=== PATIENT | female | born 1975 | race Caucasian/White ===

== ENCOUNTER 2022-10-21 15:50 | Inpatient (IN) | payer OTHER, SELFPAY ==
[2022-10-23] VITALS (9 sets, daily range): BP systolic 100–149; BP diastolic 56–94; PULSE 94–105; RESP 12–18; TEMP 36.7–37.6; O2SAT 93–99
--- NOTE | 2022-10-23 09:46 | CM.NOTE ---
Rounds made with Dr. Og, pt will go to OR today for I&D. SW and Case Management will follow for any discharge needs.
--- NOTE | 2022-10-23 10:13 | SWNOTE1 ---
Patient is current with [address] and would like to continue at discharge
[2022-10-23] MEDS: PREGABALIN 100 MG CAPSULE PO ×2 (10:24→21:20)
[2022-10-23] MEDS: BUSPIRONE HCL 15 MG TABLET 30 MG PO ×2 (10:25→21:19)
[2022-10-23] MEDS: LEVETIRACETAM 250 MG TABLET 750 MG PO ×2 (10:25→21:19)
[2022-10-23 10:57] LABS: Estimated Average Glucose 243 mg/dL; Glycohemoglobin A1C 10.1 % (4.5-6.2)
--- NOTE | 2022-10-23 11:34 | P.PN_ITS ---
Progress Note: Subjective Subjective Interval history: patient is a 47-year-old female history of poorly controlled diabetes on an insulin pump, chronic pain, migraines, diabetic retinopathy and neuropathy, anxiety, bipolar disorder. she presents the hospital today with increasing pain, redness and swelling for the last two days to the right foot, at the great toe. She denies any injury, lacerations or abrasions. She has a healing wound to the left great toe that has been improving and is managed by home wound care. She denies fevers, vomiting. Blood sugars have been controlled on her insulin pump. this morning notes that on her left heel. There was a blister that had burst that on the right great toe is having some pain. Denies any fevers or chills overnight. But does report that she has been in some pain today.UDS was negative, Ha1c pending. Plan to go to OR today for I&D. Exam Narrative: Exam Narrative: General: Patient is alert, and oriented to person, place and time with normal affect, poor hygiene Skin: healing wound on the left great toe, right great toe with some erythema of the skin extending into 1st metatarsal and callus formation on the bottom of the foot, open layer of skin on the left heel Head: atraumatic, acephalic Eyes: PERRLA, no nystagmus present, conjunctiva clear, no scleral icterus Mouth/Throat: no erythema, exudate, or tonsillar enlargement, no dentition Neck: no masses palpated, normal thyroid, no JVD or audible carotid bruits Heart: Normal rate and rhythm, no murmurs/rubs/gallops Lungs: no audible wheezes, crackles and normal breath sounds all lung marquez Abdomen: Normal audible bowel sounds, no distension, No palpable masses, no organomegaly, no rebound/guarding/ or rigidity Musculoskeletal: muscle atrophy noted, ROM is limited due to being in hospital bed, no swelling bilateral lower extremities Vascular: Normal carotid, radial, femoral, posterior tibial, and dorsalis pedis pulses Lymph: no supraclavicular, axillary, or anterior/posterior cervical adenopathy Neuro: CN II-X grossly intact, normal sensation upper and lower extremities Constitutional: Vital Signs, click to edit/add: Vital Signs - 24 hr 10/23/22 11:09 Pulse Oximetry 97 Oxygen Delivery Me thod Room Air Progress Note: A&P Assessment and Plan (1) Cutaneous abscess of right foot: (2) Cellulitis of foot, right: (3) Uncontrolled diabetes mellitus: Plan #1. Right foot cellulitis with abscess- will place on Zosyn and Daptomycin, Elevated blood cell count and some tachycardia which triggered sepsis protocol. Blood cultures obtained and broad-spectrum antibiotics and fluids given. normal lactate level. WBC normal today, CT scan ordered by podiatry showed ulcer with possible abscess, plan for I&D of the right foot with hardware removal. continue IV antibiotics #2 insulin-dependent type 2 diabetes-continue on insulin pump, check ha1c #3 hypertension continue home lisinopril uncertain reason why she is on losartan as well but we'll hold this for now. normal ECHO 07/2022 #4 seizure history-continue amitriptyline Keppra and Lyrica #5 diabetic neuropathy will continue on Lyrica #6 anxiety we'll continue her BuSpar, amitriptyline, Seroquel #7 hypothyroidism continue home levothyroxine patient is a full code patient is inpatient status and is expected to stay more than two days with new CT findings Fall Risk Details Current Medications: Current Medications Acetaminophen (Acetaminophen 325 Mg Tablet) 650 mg PO Q4H PRN PRN Reason: Fever Hydrocodone Bitart/Acetaminophen (Hydrocodone/Acetaminophen 5-325 Mg Tablet) 1 each PO Q4H PRN PRN Reason: P Amitriptyline HCl (Amitriptyline Hcl 25 Mg Tablet) 25 mg PO QHS [facility] Aspirin (Aspirin 81 Mg Tab.Chew) 81 mg PO QD [facility] Last Admin: 10/23/22 10:02 Dose: Not Given Atorvastatin Calcium (Atorvastatin Calcium 40 Mg Tablet) 40 mg PO QHS [facility] Buspirone HCl (Buspirone Hcl 15 Mg Tablet) 30 mg PO BID [facility] Last Admin: 10/23/22 10:25 Dose: 30 mg Enoxaparin Sodium (Enoxaparin Sodium 40 Mg/0.4 Ml Syringe) 40 mg SUBQ Q24H [facility] Hyoscyamine (Hyoscyamine Sulfate 0.125 Mg Tab.Subl) 0.125 mg PO QID PRN PRN Reason: Cramping Daptomycin 300 mg/ Sodium (Chloride) 50 mls @ 100 mls/hr IV Q24H [facility] Piperacillin Sod/Tazobactam (Sod 3.375 gm/ Sodium Chloride) 50 mls @ 12.5 mls/hr IV Q8H [facility] Last Admin: 10/23/22 10:00 Dose: Not Given Insulin Human Isoph/Insulin Regular (Insulin Nph Hum/Reg Insulin Hm 1,000 Unit/10 Ml Vial) 0 unit SUBQ DIRECTED [facility] Levetiracetam (Levetiracetam 250 Mg Tablet) 750 mg PO BID [facility] Last Admin: 10/23/22 10:25 Dose: 750 mg Levothyroxine Sodium (Levothyroxine Sodium 25 Mcg Tablet) 75 mcg PO ACB [facility] Last Admin: 10/23/22 10:01 Dose: Not Given Lisinopril (Lisinopril 20 Mg Tablet) 40 mg PO QD [facility] Last Admin: 10/23/22 10:03 Dose: Not Given Nicotine (Nicotine 21 Mg Patch.Td24) 1 each TD QD [facility] Omeprazole (Omeprazole 40 Mg Capsule.Dr) 40 mg PO ACB [facility] Last Admin: 10/23/22 10:01 Dose: Not Given Ondansetron HCl (Ondansetron Pf 4 Mg/2 Ml Vial) 4 mg IV Q6H PRN PRN Reason: Nausea And Vomiting Pregabalin (Pregabalin 100 Mg Capsule) 100 mg PO BID [facility] Last Admin: 10/23/22 10:24 Dose: 100 mg Promethazine HCl (Promethazine Hcl 25 Mg Tablet) 25 mg PO Q6H PRN PRN Reason: WHEN TOLERATING ORAL Quetiapine Fumarate (Quetiapine Fumarate 100 Mg Tablet) 800 mg PO QHS [facility] Tizanidine HCl (Tizanidine Hcl 4 Mg Tablet) 12 mg PO QHS [facility] Tramadol HCl (Tramadol Hcl 50 Mg Tablet) 50 mg PO Q4H PRN PRN Reason: Pain Time Spent With Patient Time: Total time spent is greater than 50% in coordination of care (as documented) at patient's floor/unit and/or counseling patient: Time with patient: 25 - 35 minutes
[2022-10-23] MEDS: 0.9 % SODIUM CHLORIDE 1,000 ML 1000 ML IV (13:17)
[2022-10-23] MEDS: PIPERACILLIN SODIUM/TAZOBACTAM 3.375 GM in 0.9 % SODIUM CHLORIDE 50 ML IV ×2 (14:06→22:42)
[2022-10-23 14:52] LABS: Glucometer 83 mg/dL (74-106)
--- NOTE | 2022-10-23 15:47 | P.ORON_ITS ---
Brief Operative Note Date of procedure: 10/23/22 Pre-op diagnosis: right foot abscess, retained orthopedic hardware and history of MRSA Post-op diagnosis: same Procedure: right foot incision and drainage with removal of deep implanted orthopedic hardware PROCEDURE IN DETAIL: Patient was identified in pre op and consent was reviewed. Correct side and site were identified and marked. Pre-op antibiotics were started. Patient was brought to OR suite and place on table in a supine position. General anesthesia was administered. Tourniquet applied. Operative extremity was prepped and draped in usual sterile fashion. Formal time-out was performed and the foot/ankle were elevated for several minutes and tourniquet inflated. incision was placed over the dorsal aspect of the 1st metatarsophalangeal joint. Combination sharp and blunt dissection while protecting all neurovascular and tendinous structures gained access to the dorsal plate and screw construct transversing the 1st metatarsal phalangeal joint fusion site. The locking screws were removed with appropriate screwdriver allowing the plate to be easily removed. There was notable fusion across the joint and inherent stability. The screw holes were aggressively curetted until healthy bleeding bone was apparent. Then blunt dissection both medially and laterally between the fascial and capsular layers was performed including into the interspace to ensure any fluid collection was evacuated. There is no [place] purulence and tissue planes did appear healthy. Surgical site was irrigated with 3 L of normal saline on pulse lavage. Then a clean specimen was obtained from 1st metatarsal bone and was se nt to microbiology. the tourniquet was deflated and hyperemic response was noted with all remaining tissues including bone perfusing appropriately. The incision was then loosely closed in one layer and a dry sterile dressing was applied. FINDINGS: hardware was stable and once removed it was adequate perfusion of the 1st metatarsophalangeal joint which was also inherently stable. Bone appeared to be within normal limits given patient's age and gender. No significant fluid collection. POSTOPERATIVE PLAN: Transfer to med/surg under hospitalist's care WBAT to the right heel with surgical shoe operative foot/ankle Elevate operative extremity Discharge planning per hospitalist - no additional foot surgery planned during this stay would recommend discharged on oral antibiotics and if discharged prior to microbiology results I will alter as an outpatient Will follow F/u in my office 1 week from d/c Anesthesia: YURI Surgeon: Juanjo Amaro Interactive Media Specialist: Wesly Mcneal Estimated blood loss (mL): 25 Pathology: other (bone from 1st metatarsal sent to microbiology) Condition: stable Disposition: floor
--- NOTE | 2022-10-23 15:54 | XR_ITS ---
The [address] [address] Patient Name: ADDIE SANDERS MRN: [id number] date: 1975 Sex: F Assigned Patient Location: [place] Current Patient Location: [place] Accession/Order Number: [id number] Exam Date: 10/23/2022 16:50 Report Date: 10/23/2022 17:15 At the request of: KIRK GARCIA Procedure: XR foot RT min 3V EXAM: XR foot RT min 3V HISTORY: hardware removal COMPARISON: X-rays 10/21/[address] 10/22/2022 TECHNIQUE: 3 views FINDINGS: IMPRESSION: There has been removal of the patient's first metatarsophalangeal joint hardware. There is arthrodesis of the first metatarsophalangeal joint. Diffuse soft tissue edema. No fracture, dislocation, subluxation or osseous lesion. Films are made available to the surgeon. Electronically authenticated by: KO CHAVEZ Date: 10/23/2022 17:15
[2022-10-23 16:02] LABS: Glucometer 68 mg/dL (74-106)
[2022-10-23] MEDS: ENOXAPARIN SODIUM 40 MG/0.4 ML SYRINGE SUBQ (18:25)
[2022-10-23] MEDS: NICOTINE 21 MG PATCH.TD24 TD (18:25)
[2022-10-23] MEDS: HYDROCODONE/ACETAMINOPHEN 5-325 MG TABLET 1 TAB PO (20:17)
[2022-10-23 21:20] LABS: Glucometer 501 mg/dL (74-106)
[2022-10-23] MEDS: AMITRIPTYLINE HCL 25 MG TABLET PO (21:25)
[2022-10-23] MEDS: QUETIAPINE FUMARATE 100 MG TABLET 800 MG PO (21:25)
[2022-10-23] MEDS: ATORVASTATIN CALCIUM 40 MG TABLET PO (23:27)
[2022-10-23] MEDS: TIZANIDINE HCL 4 MG TABLET 12 MG PO (23:29)
[2022-10-24 00:05] VITALS: O2SAT 93
[2022-10-24 02:03] VITALS: O2SAT 95
[2022-10-24] MEDS: HYDROCODONE/ACETAMINOPHEN 5-325 MG TABLET 1 TAB PO ×2 (04:43→11:55)
[2022-10-24] MEDS: OMEPRAZOLE 40 MG CAPSULE.DR PO (05:54)
[2022-10-24 05:55] LABS: Basophils Percent Auto 0.2 % (0.2-2.0); Eosinophils Percent Auto 0.1 % (0.9-7.0); Hematocrit 26.8 % (36.0-48.0); Hemoglobin 8.8 g/dL (12.0-16.0); Immature Granulocytes Abs Auto 0.08 10^3/uL (0.00-0.03); Immature Granulocytes Pct Auto 0.7 % (0.0-0.5); Lymphocytes Absolute Auto 1.2 10^3/uL (1.2-3.8); Lymphocytes Percent Auto 11.3 % (20.5-60.0); Mean Corpuscular HGB Conc 32.8 g/dL (29.9-35.2); Mean Corpuscular Hemoglobin 30.4 pg (26.7-34.0); Mean Corpuscular Volume 92.7 fL (81.0-99.0); Mean Platelet Volume 9.8 fL (9.5-13.5); Monocytes Absolute Auto 0.6 10^3/uL (0.3-0.8); Monocytes Percent Auto 5.2 % (1.7-12.0); Neutrophils Percent Auto 82.5 % (43.0-75.0); Nucleated Red Blood Cells 0; Platelet Count 361 10^3/uL (150-450); Red Blood Count 2.89 10^6/uL (4.20-5.40); Red Cell Distribution Width 11.9 % (11.0-15.0); White Blood Count 10.9 10^3/uL (4.0-11.0)
[2022-10-24] MEDS: LEVOTHYROXINE SODIUM 25 MCG TABLET 75 MCG PO (05:55)
[2022-10-24 05:59] VITALS: BP 99/62; PULSE 74; RESP 18; TEMP 36.6; O2SAT 92
[2022-10-24 07:24] LABS: Alanine Aminotransferase 36 U/L (14-59); Albumin Globulin Ratio 0.5; Albumin Level 2.3 g/dL (3.4-5.0); Alkaline Phosphatase 173 U/L (46-116); Anion Gap 11.9; Aspartate Amino Transferase 24 U/L (15-37); BUN Creatinine Ratio 13.7; Bilirubin Total 0.2 mg/dL (0.2-1.0); Calcium 8.3 mg/dL (8.5-10.1); Carbon Dioxide 27.1 mmol/L (21.0-32.0); Chloride 105 mmol/L (98-107); Estimated GFR (African America 50 (>=60); Estimated GFR (Non-African Ame 41 (>=60); Globulin 4.3 g/dL; Glucose 392 mg/dL (74-106); Sodium 139 mmol/L (136-145); Total Protein 6.6 g/dL (6.4-8.2)
[2022-10-24] MEDS: PIPERACILLIN SODIUM/TAZOBACTAM 3.375 GM in 0.9 % SODIUM CHLORIDE 50 ML IV (07:33)
[2022-10-24 07:53] LABS: Glucometer 326 mg/dL (74-106)
[2022-10-24] MEDS: PREGABALIN 100 MG CAPSULE PO (08:13)
[2022-10-24] MEDS: LEVETIRACETAM 250 MG TABLET 750 MG PO (08:13)
[2022-10-24] MEDS: BUSPIRONE HCL 15 MG TABLET 30 MG PO (08:13)
[2022-10-24] MEDS: LISINOPRIL 20 MG TABLET 40 MG PO (08:13)
[2022-10-24] MEDS: ASPIRIN 81 MG TAB.CHEW PO (08:13)
[2022-10-24] MEDS: TRAMADOL HCL 50 MG TABLET PO (08:14)
--- NOTE | 2022-10-24 09:11 | PM.PN ---
Progress Note: Subjective Subjective Interval history: Patient seen and evaluated this morning. Overall doing pretty well today. States her pain is improved. States her dressings have remained clean dry and intact. Denies any overnight complaints. Denies any constitutional symptoms. Exam Constitutional: Vital Signs, click to edit/add: Vital Signs - 24 hr 10/23/22 11:09 10/23/22 15:55 10/23/22 16:00 Temperature 98.6 F Pulse Rate 96 H 96 H Respiratory Rate 15 15 Blood Pressure 109/76 100/69 Blood Pressure [Le ft Arm] Blood Pressure [Ri ght Arm] Pulse Oximetry 97 95 97 Oxygen Delivery Me thod Room Air Room Air 10/23/22 16:05 10/23/22 16:10 10/23/22 16:29 Temperature Pulse Rate 95 H 94 H 98 H Respiratory Rate 12 14 16 Blood Pressure 111/72 128/56 H 117/78 Blood Pressure [Le ft Arm] Blood Pressure [Ri ght Arm] Pulse Oximetry 98 99 97 Oxygen Delivery Me thod Room Air 10/23/22 16:25 10/23/22 14:00 10/23/22 21:22 Temperature 98.1 F 99.6 F Pulse Rate 98 H 105 H Respiratory Rate 14 18 18 Blood Pressure 124/76 H Blood Pressure [Le ft Arm] 146/79 H 149/94 H Blood Pressure [Ri ght Arm] 149/94 H Pulse Oximetry 98 93 L 93 L Oxygen Delivery Me thod Room Air Room Air Room Air 10/24/22 00:05 10/24/22 02:03 10/24/22 05:59 Temperature 98 F Pulse Rate 74 Respiratory Rate 18 Blood Pressure Blood Pressure [Le ft Arm] 99/62 Blood Pressure [Ri ght Arm] Pulse Oximetry 93 L 95 92 L Oxygen Delivery Me thod Room Air Extremity: Right lower extremity: foot and digits Left lower extremity: foot and digits Extremities: Details: Dressings are clean dry and intact to bilateral lower extremities. No strikethrough noted. No pain with calf compression. Wiggles digits without discomfort. Compartment soft and compressible Progress Note: Objective Labs Labs: Short CBC 10/24/22 Range/Units 04:43 WBC 10.9 (4.0-11.0) 10^3/uL Hgb 8.8 L (12.0-16.0) g/dL Hct 26.8 L (36.0-48.0) % Plt Count 361 (150-450) 10^3/uL BMP 10/24/22 04:43 Sodium 139 Potassium 5.0 Chloride 105 Carbon Dioxide 27.1 BUN 19.0 H Creatinine 1.39 H Glucose 392 H Calcium 8.3 L Liver Function 10/24/22 Range/Units 04:43 Total Bilirubin 0.2 (0.2-1.0) mg/dL AST 24 (15-37) U/L ALT 36 (14-59) U/L Albumin 2.3 L (3.4-5.0) g/dL Progress Note: A&P Assessment and Plan (1) Cutaneous abscess of right foot: Assessment and Plan: Patient seen and evaluated today Physical exam findings discussed with the patient We did review to lab work and vitals with her Noted hemoglobin A1c is ten No leukocytosis today I do not see any new inflammatory markers today but they were elevated on admission I do not see any resolution of her blood cultures She is one day status post incision and drainage to right foot with removal of hardware We did send some bone intraoperatively for microanalysis, await these results I agree continuing antibiotics likely can be discharged on oral antibiotics as there was no overt abscess during surgery Can be weightbearing as tolerated Should have dressings left clean dry and intact until follow-up unless they get saturated at which point she can change them She may call if questions or concerns We should see one week from discharge (2) Cellulitis of foot, right: (3) Uncontrolled diabetes mellitus: Fall Risk Details Fried Fall Scale Risk Level: Moderate Fall Risk Current Medications: Current Medications Acetaminophen (Acetaminophen 325 Mg Tablet) 650 mg PO Q4H PRN PRN Reason: Fever Hydrocodone Bitart/Acetaminophen (Hydrocodone/Acetaminophen 5-325 Mg Tablet) 1 each PO Q4H PRN PRN Reason: P Last Admin: 10/24/22 04:43 Dose: 1 each Amitriptyline HCl (Amitriptyline Hcl 25 Mg Tablet) 25 mg PO QHS [facility] Last Admin: 10/23/22 21:25 Dose: 25 mg Aspirin (Aspirin 81 Mg Tab.Chew) 81 mg PO QD [facility] Last Admin: 10/24/22 08:13 Dose: 81 mg Atorvastatin Calcium (Atorvastatin Calcium 40 Mg Tablet) 40 mg PO QHS [facility] Last Admin: 10/23/22 23:27 Dose: 40 mg Buspirone HCl (Buspirone Hcl 15 Mg Tablet) 30 mg PO BID [facility] Last Admin: 10/24/22 08:13 Dose: 30 mg Enoxaparin Sodium (Enoxaparin Sodium 40 Mg/0.4 Ml Syringe) 40 mg SUBQ Q24H [facility] Last Admin: 10/23/22 18:25 Dose: 40 mg Hyoscyamine (Hyoscyamine Sulfate 0.125 Mg Tab.Subl) 0.125 mg PO QID PRN PRN Reason: Cramping Daptomycin 300 mg/ Sodium (Chloride) 50 mls @ 100 mls/hr IV Q24H [facility] Last Infusion: 10/23/22 18:57 Dose: Infused Piperacillin Sod/Tazobactam (Sod 3.375 gm/ Sodium Chloride) 50 mls @ 12.5 mls/hr IV Q8H [facility] Last Admin: 10/24/22 07:33 Dose: 50 mls/hr, 50 mls/hr Levetiracetam (Levetiracetam 250 Mg Tablet) 750 mg PO BID [facility] Last Admin: 10/24/22 08:13 Dose: 750 mg Levothyroxine Sodium (Levothyroxine Sodium 25 Mcg Tablet) 75 mcg PO ACB [facility] Last Admin: 10/24/22 05:55 Dose: 75 mcg Lisinopril (Lisinopril 20 Mg Tablet) 40 mg PO QD [facility] Last Admin: 10/24/22 08:13 Dose: 40 mg Nicotine (Nicotine 21 Mg Patch.Td24) 1 each TD QD [facility] Last Admin: 10/23/22 18:25 Dose: 1 each Omeprazole (Omeprazole 40 Mg Capsule.Dr) 40 mg PO ACB [facility] Last Admin: 10/24/22 05:54 Dose: 40 mg Ondansetron HCl (Ondansetron Pf 4 Mg/2 Ml Vial) 4 mg IV Q6H PRN PRN Reason: Nausea And Vomiting Pregabalin (Pregabalin 100 Mg Capsule) 100 mg PO BID [facility] Last Admin: 10/24/22 08:13 Dose: 100 mg Promethazine HCl (Promethazine Hcl 25 Mg Tablet) 25 mg PO Q6H PRN PRN Reason: WHEN TOLERATING ORAL Quetiapine Fumarate (Quetiapine Fumarate 100 Mg Tablet) 800 mg PO QHS [facility] Last Admin: 10/23/22 21:25 Dose: 800 mg Sodium Chloride (0.9 % Sodium Chloride 10 Ml Syringe - Saline Flush) 10 ml IV PRN PRN PRN Reason: flush Tizanidine HCl (Tizanidine Hcl 4 Mg Tablet) 12 mg PO QHS [facility] Last Admin: 10/23/22 23:29 Dose: 12 mg Tramadol HCl (Tramadol Hcl 50 Mg Tablet) 50 mg PO Q4H PRN PRN Reason: Pain Last Admin: 10/24/22 08:14 Dose: 50 mg
--- NOTE | 2022-10-24 10:42 | SWNOTE1 ---
Pt is requesting bedside commode. SW reviewed the criteria to qualify for bedside commode with pt. SW let her know that SW to talk with doctor and doctor will have to document and write script. Pt voiced understanding. SW gave the doctor the required material for documentation for a bedside commode. Doctor signed script and will send documentation once complete. Pt is going to be going home today and resuming her MED 1 HH. Pt does have a ride home.
--- NOTE | 2022-10-24 10:42 | CM.NOTE ---
Rounds made with Dr. Og, ok for discharge to home today. Pt inquiring about BSC for home, Dr. Og will document and write order for commode d/t limited mobility. Pt is current with [address]
[2022-10-24 11:53] LABS: Glucometer 317 mg/dL (74-106)
[2022-10-24] MEDS: NICOTINE 21 MG PATCH.TD24 TD (11:53)
--- NOTE | 2022-10-24 12:31 | P.DS_ITS ---
DS: Providers Provider Date of admission: 10/21/22 15:50 Primary care physician: TEST TEST DS: Diagnosis Discharge Diagnosis (1) Cutaneous abscess of right foot: (2) Cellulitis of foot, right: (3) Uncontrolled diabetes mellitus: DS: Summary Hospital Course Hospital Course: #1. Right foot cellulitis with abscess- will place on Zosyn and Daptomycin, Elevated blood cell count and some tachycardia which triggered sepsis protocol. Blood cultures obtained and broad-spectrum antibiotics and fluids given. normal lactate level. WBC normal, CT scan ordered by podiatry showed ulcer with possible abscess, had I&D? of the right foot with hardware removal, 10/23/22, patient to be sugical boot and non-weight baring on the forefoot, will place on Augmentin and bactrim x 7 days, close follow up with podiatry 1 week, any other activity restriction and pain control I will refer to them #2 insulin-dependent type 2 diabetes-continue on insulin pump, check ha1c 10.5, no changes to pump #3 hypertension continue home lisinopril uncertain reason why she is on losartan as well but we'll hold this for now. normal ECHO 07/2022, home metoprolol #4 seizure history-continue amitriptyline Keppra and Lyrica #5 diabetic neuropathy will continue on Lyrica #6 anxiety we'll continue her BuSpar, amitriptyline, Seroquel #7 hypothyroidism continue home levothyroxine Status at Discharge Functional status at discharge: independent ambulation Time Spent with Patient Time attestation: Total time spent providing and/or coordinating discharge services: Exam Narrative: Exam Narrative: General: Patient is alert, and oriented to person, place and time with normal affect, poor hygiene Skin: healing wound on the left great toe, right great toe with some erythema of the skin extending into 1st metatarsal and callus formation on the bottom of the foot, open layer of skin on the left heel; today dressings are c/d/i since surgery yesterday Head: atraumatic, acephalic Eyes: PERRLA, no nystagmus present, conjunctiva clear, no scleral icterus Mouth/Throat: no erythema, exudate, or tonsillar enlargement, no dentition Neck: no masses palpated, normal thyroid, no JVD or audible carotid bruits Heart: Normal rate and rhythm, no murmurs/rubs/gallops Lungs: no audible wheezes, crackles and normal breath sounds all lung marquez Abdomen: Normal audible bowel sounds, no distension, No palpable masses, no organomegaly, no rebound/guarding/ or rigidity Musculoskeletal: muscle atrophy noted, ROM is limited due to being in hospital bed, no swelling bilateral lower extremities Vascular: Normal carotid, radial, femoral, posterior tibial, and dorsalis pedis pulses Lymph: no supraclavicular, axillary, or anterior/posterior cervical adenopathy Neuro: CN II-X grossly intact, normal sensation upper and lower extremities Constitutional: Vital Signs, click to edit/add: Vital Signs - 24 hr 10/23/22 15:55 10/23/22 16:00 10/23/22 16:05 Temperature 98.6 F Pulse Rate 96 H 96 H 95 H Respiratory Rate 15 15 12 Blood Pressure 109/76 100/69 111/72 Blood Pressure [Le ft Arm] Blood Pressure [Ri ght Arm] Pulse Oximetry 95 97 98 Oxygen Delivery Me thod Room Air 10/23/22 16:10 10/23/22 16:29 10/23/22 16:25 Temperature Pulse Rate 94 H 98 H 98 H Respiratory Rate 14 16 14 Blood Pressure 128/56 H 117/78 124/76 H Blood Pressure [Le ft Arm] Blood Pressure [Ri ght Arm] Pulse Oximetry 99 97 98 Oxygen Delivery Me thod Room Air Room Air 10/23/22 14:00 10/23/22 21:22 10/24/22 00:05 Temperature 98.1 F 99.6 F Pulse Rate 105 H Respiratory Rate 18 18 Blood Pressure Blood Pressure [Le ft Arm] 146/79 H 149/94 H Blood Pressure [Ri ght Arm] 149/94 H Pulse Oximetry 93 L 93 L 93 L Oxygen Delivery Me thod Room Air Room Air 10/24/22 02:03 10/24/22 05:59 Temperature 98 F Pulse Rate 74 Respiratory Rate 18 Blood Pressure Blood Pressure [Le ft Arm] 99/62 Blood Pressure [Ri ght Arm] Pulse Oximetry 95 92 L Oxygen Delivery Me thod Room Air DS: Data Data Completed and Pending Labs on day of discharge: Labs from last 24 hours 10/24/22 10/24/22 10/24/22 11:52 07:52 04:43 WBC 10.9 RBC 2.89 L Hgb 8.8 L Hct 26.8 L MCV 92.7 MCH 30.4 MCHC 32.8 RDW 11.9 Plt Count 361 MPV 9.8 Neut % (Auto) 82.5 H Lymph % (Auto) 11.3 L Towner % (Auto) 5.2 Eos % (Auto) 0.1 L Baso % (Auto) 0.2 Neut # (Auto) 9.0 H Lymph # (Auto) 1.2 Towner # (Auto) 0.6 Eos # (Auto) 0.0 Baso # (Auto) 0.0 Nucleated RBCs 0 Sodium 139 Potassium 5.0 Chloride 105 Carbon Dioxide 27.1 Anion Gap 11.9 BUN 19.0 H Creatinine 1.39 H Est GFR ( Amer) 50 L Est GFR (Non-Af Amer) 41 L BUN/Creatinine Ratio 13.7 Glucose 392 H Glucometer 317 H 326 H Calcium 8.3 L Total Bilirubin 0.2 AST 24 ALT 36 Total Protein 6.6 Albumin 2.3 L Globulin 4.3 Albumin/Globulin Ratio 0.5 10/23/22 10/23/22 10/23/22 21:19 16:01 11:53 WBC RBC Hgb Hct MCV MCH MCHC RDW Plt Count MPV Neut % (Auto) Lymph % (Auto) Towner % (Auto) Eos % (Auto) Baso % (Auto) Neut # (Auto) Lymph # (Auto) Towner # (Auto) Eos # (Auto) Baso # (Auto) Nucleated RBCs Sodium Potassium Chloride Carbon Dioxide Anion Gap BUN Creatinine Est GFR ( Amer) Est GFR (Non-Af Amer) BUN/Creatinine Ratio Glucose Glucometer 501 H* 68 L 83 Calcium Total Bilirubin AST ALT Total Protein Albumin Globulin Albumin/Globulin Ratio Discharge Plan Discharge Disposition: Home Health Service Discharge Medications: New amoxicillin-pot clavulanate 875-125 mg tablet 1 tab PO Q12H 7 Days Qty: 14 0RF sulfamethoxazole-trimethoprim [Bactrim DS] 800-160 mg tablet 1 tab PO BID 7 Days Qty: 14 0RF Continued albuterol sulfate [Ventolin HFA] 90 mcg/actuation HFA aerosol inhaler 1 puff INHALATION Q4H PRN (Reason: shortness of breath or wheezing) atorvastatin 40 mg tablet 40 mg PO .daily ofloxacin 0.3 % drops 1 drp ophthalmic (eye) Q4H chlorthalidone 25 mg tablet 25 mg PO .daily aspirin 81 mg tablet,delayed release (DR/EC) 81 mg PO .daily tramadol 50 mg tablet 50 mg PO .daily PRN (Reason: pain) prednisolone acetate 1 % drops,suspension 1 drp OPHTHALMIC (EYE) Q6H metformin 1,000 mg tablet 1,000 mg PO Q12H metoprolol tartrate 50 mg tablet 50 mg PO Q12H levetiracetam 750 mg tablet 750 mg PO Q12H lisinopril 40 mg tablet 40 mg PO .daily ondansetron 4 mg tablet,disintegrating 4 mg PO Q6H PRN (Reason: nausea and vomiting) Saccharomyces boulardii [Florastor] 250 mg capsule 250 mg PO Q12H metoprolol tartrate 25 mg tablet 25 mg PO Q12H tizanidine 6 mg capsule 12 mg PO Q12H pregabalin 100 mg capsule 100 mg PO Q12H quetiapine 400 mg tablet 800 mg PO .daily cholecalciferol (vitamin D3) 25 mcg (1,000 unit) tablet 25 mcg PO .daily Activity Detail: activity per surgery/podiatry Diet: 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 Forms: Portal Instructions Follow Up Appointments: podiatry 1 week
--- NOTE | 2022-10-24 13:21 | SWNOTE1 ---
SW sent referral for bedside commode over to [facility]. Pt has formerly [facility] and [facility] is not in network.
[2022-10-24 13:37] VITALS: O2SAT 98
--- NOTE | 2022-10-24 13:53 | SWNOTE1 ---
RACQUEL sent dc orders to [address] RACQUEL also let pt know that if she is discharged before SW has an answer from [facility], SW will call her in regards to bedside commode.
[2022-10-24 14:41] VITALS: BP 137/83; PULSE 98; RESP 16; TEMP 36.8; O2SAT 95
--- NOTE | 2022-10-24 15:37 | SWNOTE1 ---
SW had to re-fax bedside commode information to a different fax number.
== END 2022-10-24 15:25 | disposition home health service (06) | DRG 952 ==
PROVIDERS: Podiatrist Foot & Ankle Surgery; Admitting Provider Family Medicine; Visit Provider Internal Medicine
PROC: 0QPN04Z Removal of Internal Fixation Device from Right Metatarsal, Open Approach (ICD-10-PCS; principal; 2022-10-23 14:40)
DX: L02.611 Cutaneous abscess of right foot (principal); L03.115 Cellulitis of right lower limb; Z96.41 Presence of insulin pump (external) (internal); E11.40 Type 2 diabetes mellitus with diabetic neuropathy, unspecified; E03.9 Hypothyroidism, unspecified; E11.319 Type 2 diabetes mellitus with unspecified diabetic retinopathy without macular edema; E11.22 Type 2 diabetes mellitus with diabetic chronic kidney disease; N18.9 Chronic kidney disease, unspecified; I12.9 Hypertensive chronic kidney disease with stage 1 through stage 4 chronic kidney disease, or unspecified chronic kidney disease; F41.9 Anxiety disorder, unspecified; R56.9 Unspecified convulsions; F31.9 Bipolar disorder, unspecified; G47.33 Obstructive sleep apnea (adult) (pediatric); E78.5 Hyperlipidemia, unspecified; M54.16 Radiculopathy, lumbar region; G43.909 Migraine, unspecified, not intractable, without status migrainosus; K21.9 Gastro-esophageal reflux disease without esophagitis; G25.81 Restless legs syndrome; E66.01 Morbid (severe) obesity due to excess calories; F20.9 Schizophrenia, unspecified; G89.29 Other chronic pain; Z68.42 Body mass index [BMI] 45.0-49.9, adult; Z95.0 Presence of cardiac pacemaker; Z87.440 Personal history of urinary (tract) infections; Z87.891 Personal history of nicotine dependence; Z90.49 Acquired absence of other specified parts of digestive tract; Z86.14 Personal history of Methicillin resistant Staphylococcus aureus infection; Z98.890 Other specified postprocedural states; Z79.4 Long term (current) use of insulin; Z79.84 Long term (current) use of oral hypoglycemic drugs; Z79.82 Long term (current) use of aspirin; Z79.899 Other long term (current) drug therapy; Z88.1 Allergy status to other antibiotic agents; Z88.5 Allergy status to narcotic agent; Z91.048 Other nonmedicinal substance allergy status; Z91.041 Radiographic dye allergy status; Z91.040 Latex allergy status; Z88.8 Allergy status to other drugs, medicaments and biological substances; Z83.3 Family history of diabetes mellitus; Z82.49 Family history of ischemic heart disease and other diseases of the circulatory system; Z83.49 Family history of other endocrine, nutritional and metabolic diseases
CPT/HCPCS: 36415; 36591; 73080; 73630; 73700; 80053; 80307; 82009; 82800; 82948; 83036; 83605; 85025; 85652; 86140; 87040; 87205; 88230; 94761; 96365; 96366; 96367; 96368; 96375; 96376; 99285; 99406; J0878; J1170; J2704

== ENCOUNTER 2022-11-05 18:06 | Emergency (ER) | payer OTHER, SELFPAY ==
[2022-11-05 18:09] VITALS: BP 158/106; PULSE 96; RESP 12; TEMP 36.8; O2SAT 99; BMI 44.0
== END 2022-11-05 19:06 | disposition left against medical advice (07) ==
LOC: ER 18:38
PROVIDERS: Emergency Provider Emergency Medicine
DX: M25.562 Pain in left knee (principal)

== ENCOUNTER 2024-06-25 09:40 | Emergency (ER) | payer OTHER, SELFPAY ==
--- NOTE | 2024-06-25 09:50 | PC.NURSE ---
ems presents with pt, she is alert x 3, pt repeatedly saying she is sorry, coal inspector applied, vitals obtained, seizure pads in place, daughter at bedside.
--- NOTE | 2024-06-25 09:52 | ECG_ITS ---
[facility] Test Date: 2024-06-25 Pat Name: ADDIE ORGAN Department: Room: - Gender: Female Cytology Teacher: : 1975 Requested By: [id number] Order Number: [id number] Reading MD: DACIA BAIRES Measurements Intervals [place] Rate: 97 P: 75 OK: 186 QRS: 70 QRSD: 86 T: 37 QT: 340 QTc: 395 Interpretive Statements 1100 Sinus rhythm 4068 Nonspecific [place] abnormality 8102 Low QRS voltage in chest leads 9130 borderline ECG Compared to ECG 08/04/2022 21:09:46 No significant changes Electronically Signed On 06-26-2024 7:37:40 EST by DACIA BAIRES
[2024-06-25 09:54] VITALS: BP 180/76; PULSE 94; TEMP 37; O2SAT 99; BMI 48.5
--- NOTE | 2024-06-25 10:16 | ED_ITS ---
HPI - Seizure General Chief Complaint: Seizure Stated Complaint: SEIZURE Time Seen by Provider: 06/25/24 09:51 Source: other Source comment: ems Mode of arrival: ambulance Limitations: altered mental status and physical limitation History of Present Illness HPI Narrative: The patient brought to us by the EMS for concern of possible seizure when they presented to the evaluate the patient , the patient apparently have a history of seizure disorder, they noticed some confusion when the arrived to get the patient but she was already ambulating with no difficulty, the patient has not been taking her seizure medication for the last month as she ran out of the medication. The patient was able to ambulate to the [place] of the EMS with no difficulty. Upon arrival the patient did mention that she have a history of seizure and it is mostly usually focal seizure disorder and she ran out of her medication has not taken anything for the last month. It seems that the patient has not been l iving at her house in [facility] which is an hour and 15 minutes away from here but she has been living at her daughter house as well as her cousin house. Related Data Home Medications ?Medication ?Instructions ?Recorded ?Confirmed Saccharomyces boulardii 250 mg 250 mg PO Q12H 10/23/22 06/25/24 capsule (Florastor) albuterol sulfate 90 mcg/actuation 1 puff inhalation Q4H PRN 10/23/22 06/25/24 aerosol inhaler (Ventolin HFA) shortness of breath or wheezing aspirin 81 mg tablet,delayed 81 mg PO .daily 10/23/22 06/25/24 release atorvastatin 40 mg tablet 40 mg PO .daily 10/23/22 06/25/24 chlorthalidone 25 mg tablet 25 mg PO .daily 10/23/22 06/25/24 cholecalciferol (vitamin D3) 25 25 mcg PO .daily 10/23/22 06/25/24 mcg (1,000 unit) tablet levetiracetam 750 mg tablet 750 mg PO Q12H 10/23/22 06/25/24 lisinopril 40 mg tablet 40 mg PO .daily 10/23/22 06/25/24 metformin 1,000 mg tablet 1,000 mg PO Q12H 10/23/22 06/25/24 metoprolol tartrate 50 mg tablet 50 mg PO Q12H 10/23/22 06/25/24 pregabalin 100 mg capsule 100 mg PO Q12H 10/23/22 06/25/24 quetiapine 400 mg tablet 800 mg PO .daily 10/23/22 06/25/24 tizanidine 6 mg capsule 12 mg PO Q12H 10/23/22 06/25/24 levothyroxine 75 mcg tablet 75 mcg PO .ACB 06/25/24 06/25/24 loratadine 10 mg tablet 10 mg PO .QD 06/25/24 06/25/24 nortriptyline 25 mg capsule 25 mg PO .QHS 06/25/24 06/25/24 Previous Rx's ?Medication ?Instructions ?Recorded levetiracetam 750 mg tablet 750 mg PO Q12H 10 days #20 tabs 06/25/24 (Angella) Allergies Allergy/AdvReac Type Severity Reaction Status Date / Time latex Allergy Rash Verified 06/25/24 09:54 vancomycin Allergy Rash Verified 06/25/24 09:54 acetaminophen (From AdvReac Rash Verified 06/25/24 09:54 Darvocet-N) adhesive tape AdvReac Rash Verified 06/25/24 09:54 codeine AdvReac Rash Verified 06/25/24 09:54 dextrose 5 % in water (From AdvReac Rash Verified 06/25/24 09:54 Zyvox) fentanyl AdvReac Rash Verified 06/25/24 09:54 ibuprofen AdvReac Rash Verified 06/25/24 09:54 linezolid (From Zyvox) AdvReac Rash Verified 06/25/24 09:54 propoxyphene (From AdvReac Rash Verified 06/25/24 09:54 Darvocet-N) iv dye Allergy Rash Uncoded 06/25/24 09:54 Review of Systems ROS Status of ROS 10 or more systems reviewed and unremark able except as noted in history and below PFSH PFSH Social History Smoking status: Current every day smoker Little interest or pleasure in doing things: not at all Feeling down, depressed, or hopeless: not at all Exam Narrative Exam Narrative: Nurses notes and vital signs reviewed and patient is not hypoxic. General: Well-appearing and in no apparent distress. Skin: Warm, dry, no pallor noted. No rash. Head: Normocephalic, atraumatic. Neck: Supple, non-tender. Eye: Pupils are equal, round and EOMI. No scleral icterus. Ears, Nose, Mouth, and Throat: TM are clear, no nasal mucosal hypertrophy. Oral mucosa is moist, no posterior oropharynx erythema, uvula is mid-line Cardiovascular: Regular Rate and Rhythm without murmur, gallop or rub. Respiratory: No accessory muscle use or respiratory distress. Lungs are clear to auscultation, no wheezing, rales or rhonchi Chest Wall: no tenderness Back: No midline thoracic or lumbar vertebral tenderness. No CVA tenderness Musculoskeletal: normal ROM, no calf or popliteal tenderness, patient have a healing wound in the left foot for previous surgery, GI: Abdomen is soft, non-distended. Normal bowel sounds. No masses appreciated. No tenderness to palpation. No rebound, guarding, or rigidity noted. Neurological: A&O x4. No cranial nerve dysfunction observed. Moves all extremities. Sensation intact. Constitutional Vital Signs, click to edit/add: Last Vital Signs Temp 98.6 F 06/25/24 09:54 Pulse 94 H 06/25/24 09:54 Resp 18 06/25/24 09:54 BP 180/76 H 06/25/24 09:54 Pulse Ox 99 06/25/24 09:54 O2 Del Method Room Air 06/25/24 09:54 Course Vital Signs Vital signs: Vital Signs Temperature 98.6 F 06/25/24 09:54 Pulse Rate 94 H 06/25/24 09:54 Respiratory Rate 18 06/25/24 09:54 Blood Pressure 180/76 H 06/25/24 09:54 Pulse Oximetry 99 06/25/24 09:54 Oxygen Delivery Method Room Air 06/25/24 09:54 Temperature 98.6 F 06/25/24 09:54 Pulse Rate 94 H 06/25/24 09:54 Respiratory Rate 18 06/25/24 09:54 Blood Pressure 180/76 H 06/25/24 09:54 Pulse Oximetry 99 06/25/24 09:54 Oxygen Delivery Method Room Air 06/25/24 09:54 MDM - Seizure MDM Narrative Medical decision making narrative: The patient EKG showing sinus rhythm with a heart rate of [address] elevation or depression showing any significant coronary artery disease CBC chemistry showed no acute significant pathology Patient had her Keppra refilled for the next 10 days and she was provided with 1 dose here in the ER before she got discharged No noticed seizure in the ER during the monitoring time Lab Data Labs: Lab Results 06/25/24 06/25/24 Range/Units 10:13 10:50 WBC 7.7 (4.0-11.0) 10^3/uL RBC 4.01 L (4.20-5.40) 10^6/uL Hgb 12.3 (12.0-16.0) g/dL Hct 36.1 (36.0-48.0) % MCV 90.0 (81.0-99.0) fL MCH 30.7 (26.7-34.0) pg MCHC 34.1 (29.9-35.2) g/dL RDW 11.9 (11.0-15.0) % Plt Count 269 (150-450) 10^3/uL MPV 9.1 L (9.5-13.5) fL Neut % (Auto) 65.0 (43.0-75.0) % Lymph % (Auto) 25.9 (20.5-60.0) % [place] % (Auto) 6.6 (1.7-12.0) % Eos % (Auto) 1.4 (0.9-7.0) % Baso % (Auto) 0.7 (0.2-2.0) % Neut # (Auto) 5.0 (1.4-6.5) 10^3/uL Lymph # (Auto) 2.0 (1.2-3.8) 10^3/uL [place] # (Auto) 0.5 (0.3-0.8) 10^3/uL Eos # (Auto) 0.1 (0.0-0.7) 10^3/uL Baso # (Auto) 0.1 (0.0-0.1) 10^3/uL Abs Immat Gran (auto) 0.03 (0.00-0.03) 10^3/uL Imm/Tot Granulo (auto) 0.4 (0.0-0.5) % Sodium 141 (136-145) mmol/L Potassium 3.6 (3.5-5.1) mmol/L Chloride 105 (98-107) mmol/L Carbon Dioxide 28.6 (21.0-32.0) mmol/L Anion Gap 11.0 BUN 18.0 (7.0-18.0) mg/dL Creatinine 1.39 H (0.55-1.02) mg/dL Est GFR ( Amer) 49 L (>=60 mL/min/1.73m^2) Est GFR (Non-Af Amer) 41 L (>=60 mL/min/1.73m^2) BUN/Creatinine Ratio 12.9 Glucose 149 H (74-106) mg/dL Calcium 8.5 (8.5-10.1) mg/dL Total Bilirubin 0.3 (0.2-1.0) mg/dL AST 9 L (15-37) U/L ALT 20 (14-59) U/L Alkaline Phosphatase 117 H (46-116) U/L Total Protein 6.7 (6.4-8.2) g/dL Albumin 3.0 L (3.4-5.0) g/dL Globulin 3.7 g/dL Albumin/Globulin Ratio 0.8 Serum HCG, Qual Negative (NEGATIVE) Urine Color Lt. yellow (YELLOW) Urine Clarity Clear (CLEAR) Urine pH 6.0 (5.0-9.0) Ur Specific [place] >=1.030 A (1.005-1.025) Urine Protein 100 A (NEG/TRACE) mg/dL Urine Glucose (UA) >=1000 A (NEGATIVE) mg/dL Urine Ketones Negative (NEGATIVE) mg/dL Urine Occult Blood Trace-l (NEGATIVE) Urine Nitrite Negative (NEGATIVE) Urine Bilirubin Negative (NEGATIVE) Urine Urobilinogen 0.2 (0.2-1.0) EU/dL Ur Leukocyte Esterase Negative (NEGATIVE) Ethanol Quant <3 mg/dL Discharge Plan Discharge Chief Complaint: Seizure Clinical Impression: Focal seizure, Medication refill Patient Disposition: Home, Self-Care Time of Disposition Decision: 11:10 Condition: Good Prescriptions / Home Meds: New levetiracetam [Keppra] 750 mg tablet 750 mg PO Q12H 10 Days Qty: 20 0RF No Action albuterol sulfate [Ventolin HFA] 90 mcg/actuation HFA aerosol inhaler 1 puff INHALATION Q4H PRN (Reason: shortness of breath or wheezing) atorvastatin 40 mg tablet 40 mg PO .daily chlorthalidone 25 mg tablet 25 mg PO .daily aspirin 81 mg tablet,delayed release (DR/EC) 81 mg PO .daily metformin 1,000 mg tablet 1,000 mg PO Q12H metoprolol tartrate 50 mg tablet 50 mg PO Q12H levetiracetam 750 mg tablet 750 mg PO Q12H lisinopril 40 mg tablet 40 mg PO .daily Saccharomyces boulardii [Florastor] 250 mg capsule 250 mg PO Q12H tizanidine 6 mg capsule 12 mg PO Q12H pregabalin 100 mg capsule 100 mg PO Q12H quetiapine 400 mg tablet 800 mg PO .daily cholecalciferol (vitamin D3) 25 mcg (1,000 unit) tablet 25 mcg PO .daily levothyroxine 75 mcg tablet 75 mcg PO .ACB loratadine 10 mg tablet 10 mg PO .QD nortriptyline 25 mg capsule 25 mg PO .QHS Print Language: Wallisian Instructions: Medicine Refill (ED) Referrals: Physician,Non-Staff, MD [Primary Care Provider] - 1 week
[2024-06-25 10:21] LABS: Basophils Absolute Auto 0.1 10^3/uL (0.0-0.1); Basophils Percent Auto 0.7 % (0.2-2.0); Eosinophils Absolute Auto 0.1 10^3/uL (0.0-0.7); Eosinophils Percent Auto 1.4 % (0.9-7.0); Hematocrit 36.1 % (36.0-48.0); Hemoglobin 12.3 g/dL (12.0-16.0); Immature Granulocytes Abs Auto 0.03 10^3/uL (0.00-0.03); Immature Granulocytes Pct Auto 0.4 % (0.0-0.5); Lymphocytes Percent Auto 25.9 % (20.5-60.0); Mean Corpuscular HGB Conc 34.1 g/dL (29.9-35.2); Mean Corpuscular Hemoglobin 30.7 pg (26.7-34.0); Mean Platelet Volume 9.1 fL (9.5-13.5); Monocytes Absolute Auto 0.5 10^3/uL (0.3-0.8); Monocytes Percent Auto 6.6 % (1.7-12.0); Platelet Count 269 10^3/uL (150-450); Red Blood Count 4.01 10^6/uL (4.20-5.40); Red Cell Distribution Width 11.9 % (11.0-15.0); White Blood Count 7.7 10^3/uL (4.0-11.0)
[2024-06-25 10:35] LABS: Alanine Aminotransferase 20 U/L (14-59); Albumin Globulin Ratio 0.8; Alkaline Phosphatase 117 U/L (46-116); Aspartate Amino Transferase 9 U/L (15-37); BUN Creatinine Ratio 12.9; Bilirubin Total 0.3 mg/dL (0.2-1.0); Calcium 8.5 mg/dL (8.5-10.1); Carbon Dioxide 28.6 mmol/L (21.0-32.0); Chloride 105 mmol/L (98-107); Estimated GFR (African America 49 (>=60 mL/min/1.73m^2); Estimated GFR (Non-African Ame 41 (>=60 mL/min/1.73m^2); Globulin 3.7 g/dL; Glucose 149 mg/dL (74-106); Potassium 3.6 mmol/L (3.5-5.1); Sodium 141 mmol/L (136-145); Total Protein 6.7 g/dL (6.4-8.2)
[2024-06-25 10:37] LABS: Ethanol <3 mg/dL
[2024-06-25] MEDS: ACETAMINOPHEN 325 MG TABLET 650 MG PO (10:37)
[2024-06-25] MEDS: LEVETIRACETAM 500 MG TABLET 750 MG PO (10:37)
[2024-06-25 10:40] LABS: HCG Qualitative NEGATIVE (NEGATIVE); Internal Control Within Normal Limits
[2024-06-25 11:02] LABS: Bilirubin Urine NEGATIVE (NEGATIVE); Blood Urine TRACE-L (NEGATIVE); Clarity Urine CLEAR (CLEAR); Color Urine LT. YELLOW (YELLOW); Glucose Urine UA >=1000 mg/dL (NEGATIVE); Ketones Urine NEGATIVE (NEGATIVE); Leukocyte Esterase Urine NEGATIVE (NEGATIVE); Nitrite Urine NEGATIVE (NEGATIVE); Protein Urine 100 mg/dL (NEG/TRACE); Specific Gravity Urine >=1.030 (1.005-1.025); Urobilinogen Urine 0.2 EU/dL (0.2-1.0)
[2024-06-25 11:22] VITALS: BP 168/77; PULSE 84; O2SAT 99
[2024-06-25 11:26] LABS: Amphetamine Screen Urine NEGATIVE (NEGATIVE); Barbiturates Screen Urine NEGATIVE (NEGATIVE); Benzodiazepines Screen Urine NEGATIVE (NEGATIVE); Buprenorphine Screen Urine NEGATIVE (NEGATIVE); Cannabinoid Screen Urine NEGATIVE (NEGATIVE); Cocaine Screen Urine NEGATIVE (NEGATIVE); Methadone Screen Urine NEGATIVE (NEGATIVE); Methamphetamines Screen Urine NEGATIVE (NEGATIVE); Opiate Screen Urine NEGATIVE (NEGATIVE); Oxycodone Screen Urine POSITIVE (NEGATIVE); Phencyclidine Screen Urine NEGATIVE (NEGATIVE); Tricyclic Antidepressant Urine POSITIVE (NEGATIVE)
== END 2024-06-25 11:22 | disposition home or self-care (01) ==
PROVIDERS: Emergency Provider Emergency Medicine
DX: G40.109 Localization-related (focal) (partial) symptomatic epilepsy and epileptic syndromes with simple partial seizures, not intractable, without status epilepticus (principal); Z76.0 Encounter for issue of repeat prescription; F17.200 Nicotine dependence, unspecified, uncomplicated
CPT/HCPCS: 36415; 80053; 80307; 80320; 81001; 84703; 85025; 93005; 99284

== ENCOUNTER 2024-09-30 20:46 | Emergency (ER) | payer OTHER, SELFPAY ==
[2024-09-30] VITALS (12 sets, daily range): BP systolic 111–117; BP diastolic 85–90; PULSE 96–102; TEMP 36.6; O2SAT 96–99
--- OUTSIDE RECORDS SUMMARY | 2024-09-30 21:00 | XMS_ITS | CCD ---
Author Organization [facility] Care Team Providers Care Welfare Adviser Name Role Phone Cem Mario Unavailable Unavailable KEYLA PRATT Unavailable Unavailable CEM MARIO Unavailable Unavailable CEM MARIO Unavailable Unavailable TIMOTHY NUÑEZ Unavailable Unavailable BEN DE JESUS Unavailable Unavailab le CEM MARIO Unavailable Unavailable PHYSICAN, NONE Admitting Unavailable DANIEL GALLEGOS Attending Unavailable PHYSICDOROTHY, NONE Primary Care Unavailable CÉSAR RICE Consulting Unavailable POLO PORTER Consulting Unavailable DANIEL GALLEGOS Consulting Unavailable PRESTON ESPINO Consulting Unavailable Shameka Baum Primary Care Physician Unavail able Shameka Baum Attending Physician UnavailAMBROCIO Kaufman Admitting Unavailable AMBROCIO CHAVEZ Attending Unavailable SELF, REFERRED Referring Unavailable CALVIN HEADLEY Primary Care Unavailable System, Provider Not In Primary Care Provider Un available Italo Headley Primary Care Physician Sarita Feliz Unavailable Unavailable Breanna Gu Primary Care Physician Winnie Grande Unavailable Unavailable Herlinda June Unavailable Cem Mario DO Primary Care Provider [phone] CEM MARIO Primary Care Unavailable ANTOINE SOSA Attending Unavailable Radha Dias Primary Care Physician [phone] Pool Heath Primary Care Physician LOLI Franco Primary Care Provider [phone] DO Jacob Talbot Emergency Provider DO Ezekiel Mathew Admit Provider DO Ezekiel Mathew Attending Provider [phone] MD Jeana Martini Attending Provider MD Lawrence Kim Other Provider LUPE Castillo Other Provider MD Shameka Romero Other Provider LOLI Franco Primary Care Provider DO Jacob Talbot Emergency Provider DO Ezekiel Mathew Admit Provider MD Lawrence Kim Other Provider LUPE Castillo Other Provider [phone] MD Shameka Romero Other Provider MD Jeana Martini Attending Provider LAURENT FRANCO Primary Care Physician Shameka Romero Unavailable MD Shameka Romero Attending Provider Shameka Romero Admitting Unavailabl Shameka Shankar Attending Unavailabl Laurent Rodriguez Primary Care Unavailable Laurent Franco Primary Care Unavailable Ezekiel Mathew Admitting Unavailabl Jeana Olivas Attending Unavailable Lawrence Kim Consulting Unavailable Swapnil Castillo Consulting Unavailable Shameka Romero Consulting Unavailabl e Unavailable Primary Care Provider Unavailabl e PROVIDER, UNKNOWN Admitting Unavailable PRESTON LUGO Referring Unavailable PROVIDER, UNKNOWN Attending Unavailable PROVIDER, UNKNOWN Admitting Unavailable HEATHER RAJPUT Attending Unavailable PRESTON LUGO Referring Unavailable YESENIA GRACIA Admitting Unavailable DR POLO MILTON Consulting Unavailable MISC, DR AGUILERA Primary Care Unavailable YESENIA GRACIA Attending Unavailable POOL ALMANZA Consulting Unavailab ivan KWADWO ., RAFAELA Attending Unavailable KALLIE, DR AGUILERA Primary Care Unavailable JENELLE, DR KO Bravo Consulting Unavailable KWADWO ., RAFAELA Admitting Unavailable KHADAR GEORGE Consulting Unavailabl bud REYES, HOLGER Consulting Unavailable KIRK CABALLERO Consulting Unavailable KWADWO ., RAFAELA Consulting Unavailable MISC, DR AGUILERA Primary Care Unavailable HOY ., DR DE LA TORRE Admitting Unavailable HOY ., DR DE LA TORRE Attending Unavailable HOY ., DR DE LA TORRE Consulting Unavailable ZIEBER, DR POLO Lazcano Consulting Unavailable CARISA STILES Consulting Unavailable POLO ROLON Consulting Unavailable LISA HELM Consulting Unavailable KO HANSON Consulting Unavailable VELIA NAGEL Consulting Unavailable LAWRENCE HESTER Consulting Unavailable DARAMOLAHILARIO Consulting Unavailable ROBB ., YESENIA Consulting Unavailable ROBB ., YESENIA Admitting Unavailable ROBB ., YESENIA Attending Unavailable MISC, DR AGUILERA Primary Care Unavailable DIAB ., YARELIS Consulting Unavailable AGUSTIN ., SANTOS Attending Unavailable AGUSTIN ., SANTOS Consulting Unavailable MISC, DR AGUILERA Primary Care Unavailable AGUSTIN ., SANTOS Admitting Unavailable ZIEBER, DR POLO Lazcano Consulting Unavailable MISC, DR AGUILERA Primary Care Unavailable NADERER, DR SOTO Vogel Admitting Unavailable NADERER, DR SOTO Vogel Attending Unavailable NADERER, DR SOTO Vogel Consulting Unavailable ROBB ., YESENIA Consulting Unavailable MONIQUE MASON Consulting Unavailable SISTER, EZEQUIEL Consulting Unavailable RADHA DIAS Primary Care Unavailable LINSEY, CARISA Consulting Unavailable LINSEY, CARISA Admitting Unavailable LINSEY, CARISA Attending Unavailable AHWENDIE CONNELLY Consulting Unavailable ROBB ., YESENIA Admitting Unavailable ROBB ., YESENIA Attending Unavailable MISC, DR AGUILERA Primary Care Unavailable LINSEY, CARISA Consulting Unavailable AHOT, WENDIE Consulting Unavailable POLO ROLON Consulting Unavailable ROBB ., YESENIA Consulting Unavailable LINSEY, CARISA Consulting Unavailable LINSEY, CARISA Admitting Unavailable LINSEY, CARISA Attending Unavailable MARIA ELENAC, DR AGUILERA Primary Care Unavailable JUAN LARKIN Consulting Unavailable VEE SEWELL Consulting Unavailable MISC, DR AGUILERA Primary Care Unavailable MACI ., DR JONES Admitting Unavailable HAY ., DR JONES Attending Unavailable HAY ., DR JONES Consulting Unavailable MISC, DR AGUILERA Primary Care Unavailable MACI ., DR JONES Admitting Unavailable ZAINAB, DR LAURA Lazcano Consulting Unavailable MACI ., DR JONES Attending Unavailable MACI ., DR JONES Consulting Unavailable ED POND Consulting Unavailable MISC, DR AGUILERA Primary Care Unavailable MEDARDO, DR TIMBO Harding Admitting Unavailtheo DURAN ., MR SHAMEKA Consulting Unavailable MEDARDO, DR TIMBO Harding Attending Unavailtheo e MACI ., DR JONES Admitting Unavailable RADHA DIAS Primary Care Unavailable MACI ., DR JONES Attending Unavailable MACI ., DR JONES Consulting Unavailable LINSEY, CARISA Consulting Unavailable DIAS, RADHA Primary Care Unavailable MARKER ., DR BORDEN Admitting Unavailable MARKER ., DR BORDEN Attending Unavailable MARKER ., DR BORDEN Consulting Unavailable TROTTAILIN Christensen Consulting Unavailable ZIEBER, DR POLO Lazcano Consulting Unavailable MISC, DR AGUILERA Primary Care Unavailable HAY ., DR JONES Admitting Unavailable HAY ., DR JONES Attending Unavailable HAY ., DR JONES Consulting Unavailable MARKER ., DR BORDEN Attending Unavailable MARKER ., DR BORDEN Consulting Unavailable MISC, DR AGUILERA Primary Care Unavailable MARKER ., DR BORDEN Admitting Unavailable POLO ROLON Consulting Unavailable COOPERLAWRENCE Lozada Consulting Unavailable MISC, DR AGUILERA Primary Care Unavailable HAY ., DR JONES Attending Unavailable HAY ., DR JONES Admitting Unavailable HAY ., DR JONES Consulting Unavailable GRECHNY ., KHADAR KARIMI Consulting Unavailabl e MIS, DR AGUILERA Primary Care Unavailable HAY ., DR JONES Admitting Unavailable HAY ., DR JONES Attending Unavailable KLIPPKO SMITH Consulting Unavailable MARISEL MARY Consulting Unavailable SAMMI .JULIA Attending Unavailable MISC, DR AGUILERA Primary Care Unavailable SAMMI .JULIA Admitting Unavailable System, Provider Not In Primary Care Provider Un available BREANNA BOLIVAR Consulting Unavailable BRIDGER GARNER Attending Unavailab le BRIDGER GARNER Admitting Unavailab le SYSTEM, PROVIDER NOT IN Primary Care Unavaila ble System, Provider Not In Primary Care Provider Un available [facility] Primary Care Provider [facility] Primary Care Unavailable XIMENA RINCON Attending Unavailable [facility] Primary Care Provider [phone] No, Physician Primary Care Provider UnavailStephany Triana PA-C Primary Care Provider Angeles ELDER, Marcia Unavailable Unavailable Doctor, No Referring Unavailable Doctor, No Primary Care Unavailable Idalia Bruner Attending Unavailable Idalia Bruner Consulting Unavailable Angeles ELDER, Marcia Unavailable Unavailable Cherelle Fierro MD Unavailable Lexy Leach MD Primary Care Provider Cem Mario DO Unavailable Angeles ELDER, Marcia Unavailable Unavailable Angeles ELDER, Marcia Unavailable Unavailable Jacob Damon Admitting Unavailable Juliette PIZANO Attending Unavailable Blank, Lawrence S Consulting Unavailable Sagar Kim Lawrence S Consulting Unavailable Blank, Lawrence S Consulting Unavailable Blank, Lawrence S Consulting Unavailable Blank, Lawrence S Consulting Unavailable Blank, Lawrence S Consulting Unavailable Blank, Lawrence S Consulting Unavailable Blank, Lawrence S Consulting Unavailable Blank, Lawrence S Consulting Unavailable Blank, Lawrence S Consulting Unavailable AUGOSTINI, LEXY S Primary Care Unavailable AUGOSTINI, LEXY S Primary Care Unavailable AMANDA AGUILA Attending Unavailable JESSICA PUENTES Referring Unavailable AUGOSTINI, LEXY S Primary Care Unavailable ANDERS LONDON Attending Unavailable Jessee, Swapnil R Unavailable Unavailable Susannah RD, Radha Farrell Unavailable Unavailable Jessee, Swapnil R Unavailable Unavailable [facility] Primary Care Unavailable HARSHAD RIZZO MARI Referring Unavailable STEPHANY PELAYO Primary Care Unavailable HARSHAD RIZZOZIR Referring Unavailable Gita NICHOLSON, Stephany Noriega Primary Care Provider Unavailable Primary Care Provider Unavailtheo e UnallocatNatalia maciel MD Provider Primary Care Provi arlene Jim Velez MD Unavailable [phone] SOTO BOX Attending Unavailable Doctor, No Primary Care Provider UnavailSienna Bassett CNPndria Emergency Provider Doctor, No Consulting Unavailable Doctor, No Primary Care Unavailable Verena Kuhn Attending Unavailable STEPHANY PELAYO Primary Care Unavailable KENYA REYES Attending Unavailable SHAMEKA PALOMO Attending Unavailable STEPHANY PELAYO Primary Care Unavailable AMANDA GREENFIELD Attending Unavailable STEPHANY PELAYO Primary Care Unavailable STEPHANY PELAYO Primary Care Unavailable SHAMEKA PALOMO Attending Unavailable STEPHANY PELAYO Primary Care Unavailable NEIL MURPHY Attending Unavailab STEFANIE Jorge Attending Unavaila ble STEPHANY PELAYO Primary Care Unavailable STEPHANY PELAYO Primary Care Unavailable SHAMEKA PALOMO Attending Unavailable STEPHANY PELAYO Primary Care Unavailable SHAMEKA PALOMO Attending Unavailable MALCOLM LANE Attending Unavailable HARSHAD RIZZO Admitting Unavailable SHAMEKA CASTILLO Consulting Unavailable STEPHANY PELAYO Primary Care Unavailable [facility] Consulting UnaRUTHY Mojica Attending Unavailable [facility] Consulting Mary PELAYO, STEPHANY NORIEGA Primary Care Unavailable LAWSON, JUWAN FOWLER Admitting Unavailable BROWN, SHAMEKA AGUIRRE Consulting Unavailable HARSHAD RIZZO Attending Unavailable [facility] Consulting Mary PELAYO, STEPHANY NORIEGA Primary Care Unavailable JUDY, TODD ADMASSU Admitting Unavailab le JONATHAN, FLOYD HENSON Consulting Unavailable Mery ROBLES Referring Unavailable Mery ROBLES Attending Unavailable STEPHANY PELAYO Primary Care Unavailable STARAGAPITO PINK Referring Unavailab le STARAPRYL, AGAPITO PHILLIP Attending Unavailab le MCCMANUELA, STEPHANY NORIEGA Primary Care Unavailable MCCMANUELA, STEPHANY NORIEGA Primary Care Unavailable GITA, STEPHANY NORIEGA Referring Unavailable GITA, STEPHANY NORIEGA Attending Unavailable GITA, STEPHANY NORIEGA Primary Care Unavailable JIM VELEZ Attending STEPHANY Seth Primary Care Unavailable JIM VELEZ Attending STEPHANY Seth Primary Care Unavailable JIM VELEZ Attending STEPHANY Seth Primary Care Unavailable GITA, STEPHANY NORIEGA Primary Care Unavailable STEPHANY PELAYO Attending Unavailable GITA, STEPHANY NORIEGA Primary Care Unavailable AGUSTIN, JIM WONG Attending STEPHANY Seth Attending Unavailable STEPHANY PELAYO Referring Unavailable GITA, STEPHANY NORIEGA Primary Care Unavailable GITA, STEPHANY NORIEGA Admitting Unavailable GITA, STEPHANY NORIEGA Referring Unavailable GITA, STEPHANY NORIEGA Primary Care Unavailable JIM VELEZ Attending SAHARA Brown Attending Unavailable STEPHANY PELAYO Admitting Unavailable GITA, STEPHANY NORIEGA Referring Unavailable MCCMANUELA, STEPHANY NORIEGA Primary Care Unavailable STEPHANY PELAYO Attending Unavailable STEPHANY PELAYO Primary Care Unavailable RAFAELA MEDRANO Attending Unavailable GITA, STEPHANY NORIEGA Primary Care Unavailable GITA, STEPHANY NORIEGA Primary Care Unavailable STEPHANY PELAYO Referring Unavailable JIM VELEZ Attending STEPHANY Seth Primary Care Unavailable JIM VELEZ Attending STEPHANY eSth Attending Unavailable GITA, STEPHANY NORIEGA Primary Care Unavailable MCCMANUELA, STEPHANY NORIEGA Primary Care Unavailable STEPHANY PELAYO Attending Unavailable STEPHANY PELAYO Attending Unavailable GITA, STEPHANY NORIEGA Primary Care Unavailable BHEEMISETJOSEPHINE, ROSARIO Attending Unavailabl e GITA, STEPHANY NORIEGA Primary Care Unavailable MCCMANUELA, STEPHANY NORIEGA Attending Unavailable DONEPUDISAHARA Attending Unavailable MCCAGUE, STEPHANY NORIEGA Primary Care Unavailable MCCAGUE, STEPHANY NORIEGA Primary Care Unavailable JIM VELEZ Attending Mary PELAYO, STEPHANY NORIEGA Attending Unavailable MCCAGUE, STEPHANY NORIEGA Primary Care Unavailable MCCAGUE, STEPHANY NORIEGA Primary Care Unavailable BHEEMISETTY, ROSARIO Attending Unavailabl e TONIO, MIHAI LEA Attending Unavailab le GITA, STEPHANY NORIEGA Primary Care Unavailable MCCAGUE, STEPHANY NORIEGA Primary Care Unavailable MCCMANUELA, STEPHANY NORIEGA Attending Unavailable Allergies Allergy Classification Reported Allergen(s) Allergy Type Date of Onset Reaction(s) Facility (20 sources) codeine; 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: [codeine] Propensity to adverse reactions to drug 02-16-20 08 Vomiting (disorder), hives, Other (See Comments) [employer] Work Phone: Comment on above: hives hives (20 sources) ketorolac; 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: [ketorolac] Propensity to adverse reactions to drug 10-09-19 11 Hives, Other (See Comments), Rash, GI Intolerance, Vomiting (disorder) [employer] Work Phone: Comment on above: hives hives (20 sources) Latex; 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: [LATEX] Propensity to adverse reactions to drug 05-01-20 15 Dermatitis [facility] Work Phone: (20 sources) traMADol; 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: [tramadol] Propensity to adverse reactions to drug 12-15-19 12 Hives, Rash, Other (See Comments), GI Intolerance, Vomiting (disorder), Seizures, Unknown [employer] Work Phone: Comment on above: seizures seizures (20 sources) PROPOXYPHENE N-ACETAMINOPHEN; 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: [PROPOXYPHENE N-ACETAMINOPHEN] Propensity to adverse reactions to drug 02-16-20 08 GI Intolerance [facility] Work Phone: (1 source) Acetaminophen / Propoxyphene Drug Allergy [facility] (20 sources) Adhesive agent; 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: [ADHESIVE] Drug allergy (disorder) 07-17-19 18 Itching [facility] (1 source) Codeine Drug Allergy [facility] (7 sources) Ketorolac; 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: [Toradol] Drug Allergy 10-09-19 11 hives/seizures [facility] (4 sources) Latex Drug allergy (disorder) 12-21-19 16 [facility] (4 sources) traMADol Drug Allergy 10-01-19 13 [facility] (14 sources) Vancomycin; 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: [VANCOMYCIN] Drug Allergy 12-15-19 15 Unknown Reaction [facility] (3 sources) IV Dye, Iodine Containing Drug allergy (disorder) 12-15-19 15 [facility] (9 sources) Adhesive Tape; 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: [adhesive tape] Allergy to Substance 11-03-19 14 [facility] Repository (20 sources) Ibuprofen; 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: [ibuprofen] Drug Allergy 08-18-19 18 Other (See Comments), Renal Failure, Hives [facility] (20 sources) Propoxyphene; 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: [propoxyphene] Drug Allergy 05-25-19 16 GI Intolerance, Nausea And Vomiting [facility] (11 sources) Iodinated Contrast Media; 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: [Iodinated Contrast Media] Allergy to Substance 02-17-20 17 Other, Unknown [facility] (3 sources) Codeine Drug Allergy 10-08-[address] [facility] Rep[facility] (1 source) Contrast media; 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: [IVP DYE] Propensity to adverse reactions (disorder) 06-18-[address] [facility] Repository (12 sources) fentaNYL; 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: [FENTANYL] Drug Allergy 04-11-[address] [facility] Repository (1 source) Vancomycin Drug Allergy 06-18-[address] [facility] Repository (6 sources) DARVOCET-N 100; 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: [Darvocet-N 100] Drug allergy (disorder) 10-08-[address] [facility] Repository (20 sources) fentaNYL; 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: [fentanyl] Drug Allergy 04-11-20 19 [facility]al Failure, [facility] ([facility] sources) NSAIDs; 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: [NSAIDS (NON-STEROIDAL ANTI-INFLAMMATOR Y DRUG)] Propensity to adverse reactions to drug 03-30-20 17 [facility] (20 sources) Vancomycin; 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: [vancomycin] Drug Allergy 01-22-20 17 Other (See Comments), hives [facility] (20 sources) Ct: Iodinated Contrast- Oral And Iv Dye; 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: [CT: IODINATED CONTRAST- ORAL AND IV DYE] Propensity to adverse reactions to drug 09-07-19 19 Other (See Comments) [facility] (20 sources) acetaminophen / propoxyphene; 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: [acetaminophen-p ropoxyphene] Drug Allergy 02-16-20 08 Vomiting (disorder), Nausea and Vomiting [facility] (20 sources) Contrast media; 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: [Contrast Dye] Drug allergy Renal failure syndrome (disorder) [facility] (20 sources) insect stings; 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: [insect stings] Allergy to substance swelling [facility] (20 sources) opsite; 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: [opsite] Allergy to substance redness,blisters [facility] (7 sources) Tape 5 Propensity to adverse reactions to substance Eruption of skin (disorder) [facility] Comment on above: blisters (20 sources) Tape 2 Propensity to adverse reactions to substance Eruption of skin (disorder) [facility] Comment on above: blisters blisters (2 sources) FENTENOL Propensity to adverse reactions Unknown [facility] [employer] Other (2 sources) adhesive tape, iv dye, latex Propensity to adverse reactions itchy [facility] [employer] Other (1 source) Tape 4 Propensity to adverse reactions to substance Eruption of skin (disorder) [facility] Comment on above: blisters (2 sources) Ketorolac Drug Allergy 05-25-19 16 Other (See Comments) [employer] Work Phone: (20 sources) LORazepam; 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: [LORAZEPAM] Drug Allergy 12-09-19 22 Hallucinations, Other (See Comments) [employer] (20 sources) Iodides; 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: [IODIDES] Propensity to adverse reactions to drug 02-17-20 17 Other (See Comments) [facility] (20 sources) linezolid; 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: [linezolid] Drug Allergy 08-20-19 23 Nausea and vomiting (disorder), Nausea And Vomiting, GI Intolerance, Renal Failure [facility] (4 sources) dextrose 5 % in water; 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: [dextrose 5 % in water] Propensity to adverse reactions 08-20-19 23 Vomiting [facility] (1 source) Vancomycin Drug Allergy [facility] Other (3 sources) Codeine Drug Allergy 09-13-19 [facility] (3 sources) fentaNYL Drug Allergy 09-13-19 [facility] (1 source) Ketorolac Drug Allergy 09-13-19 [facility] (3 sources) Latex Drug allergy (disorder) 09-13-19 [facility] (1 source) traMADol Drug Allergy 09-13-19 [facility] (3 sources) Vancomycin Drug Allergy 09-13-19 [facility] (1 source) linezolid Drug Allergy 06-25-19 23 [facility] Repository (20 sources) Adhesive agent Propensity to adverse reactions to drug 07-17-19 18 Itching [facility] Work Phone: (2 sources) Adhesive agent Drug allergy (disorder) 11-29-19 [facility] Repository (2 sources) fosphenytoin Drug Allergy 11-29-19 23 [facility] Rep[facility] (2 sources) Ketorolac Drug Allergy 11-29-19 23 [facility] Rep[facility] (3 sources) Propoxyphene Drug Allergy 11-29-19 23 Unknown [facility] Rep[facility] (3 sources) traMADol Drug Allergy 11-29-19 23 Unknown [facility] Rep[facility] (3 sources) ibuproxam Drug allergy (disorder) 11-29-19 23 [facility] Rep[facility] (3 sources) bug bites; 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: [bug bites] Propensity to adverse reactions (disorder) 11-29-19 23 Unknown [facility] Rep[facility] (20 sources) Prochlorperazine ; 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: [PROCHLORPERAZIN E] Drug Allergy 06-04-19 24 Other (See Comments) [facility] (2 sources) Ketorolac trometamol Propensity to adverse reactions to drug 01-22-20 17 [facility] (4 sources) Latex Propensity to adverse reactions to drug 05-01-20 15 Dermatitis, Hives, Rash [facility] (4 sources) Non-steroidal anti-inflammator y agent Propensity to adverse reactions to drug 03-30-20 17 [facility] (2 sources) *Adhesive Tape Propensity to adverse reactions 07-15-19 18 [facility] Work Phone: (2 sources) Codeine And Related Propensity to adverse reactions to drug 02-16-20 08 Aggressive Behavior [facility] (2 sources) Dye Intermediate Red 3 (Erythrosine) Propensity to adverse reactions to drug 01-22-20 17 [facility] (1 source) Adhesive Tape; 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: [Tape] Propensity to adverse reactions (disorder) [facility] Repository (1 source) traMADol; 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: [Ultram] Drug Allergy [facility] Repository (3 sources) Lorazepam Propensity to adverse reactions to drug 12-09-19 22 Renal Failure, Hallucinations [facility] (2 sources) Morphine And Codeine Drug Intolerance 02-16-20 08 Other, Rash, GI intolerance [facility] (1 source) Adhesive agent Allergy to substance 08-30-19 25 [facility] Work Phone: (1 source) fosphenytoin Drug Allergy 08-30-19 25 Itching [facility] Work Phone: Medications Current Medications Medication Drug Class(es) Dates Sig (Normalized) Sig (Original) acetaminophen 325 mg / oxyCODONE hydrochloride 5 mg oral tablet (20 sources) Opioid Agonist Start: 09-23-2024 End: 10-07-2024 take 1 tablet by mouth three times daily as needed for pain oxyCODONE-acetami nophen (PERCOCET) 5-325 mg per tablet Indications: Chronic pain syndrome Take 1 (one) tablet by mouth 3 (three) times a day as needed for pain (Days supply per fill: 14) . 42 tablet 09/23/2024 10/07/2024 Active Start: 08-29-2024 Oxycodone-Acet aminophen 5-325 mg tablet Active TAB TABLET August 29, 2024 12:00am Start: 07-14-2024 End: 09-18-2024 take 1 tablet by mouth twice daily as needed for pain oxyCODONE-acetaminophen (PERCOCET) 5-325 mg per tablet Indications: Chronic pain syndrome Take 1 (one) tablet by mouth 2 (two) times a day as needed for pain . 60 tablet 08/19/2024 Active Start: 06-12-2024 End: 07-12-2024 oxyCODONE-acetaminophen (PER COCET) 5-325 mg per tablet Indications: Chronic pain syndrome Take 1 (one) tablet by mouth See Admin Instructions Wean to previous dosing. Week 1 - one tablet every 4-6 hours, max 5tabs/day. Week 2 - one tablet every 6 hours as needed. Week 3 - one tablet every 8 hours as needed. Week 4- one tablet twice daily as needed. Start: 06/12/24. 102 tablet 06/12/2024 07/12/2024 Discontinued (Reorder (Suppress CancelRx Message to Pharmacy)) Start: 04-12-2024 End: 09-23-2024 take 1 tablet by mouth every six hours as needed for pain oxyCODONE-acetaminophen (PERCOCET) 5-325 mg per tablet Indications: Chronic pain syndrome Take 1 (one) tablet by mouth every 6 (six) hours as needed for pain (Days supply per fill: 30) . 15 tablet 04/12/2024 09/23/2024 Discontinued (Reorder (Suppress CancelRx Message to Pharmacy)) Start: 04-08-2024 End: 06-12-2024 take 1 tablet by mouth every four hours as needed for pain oxyCODONE-acetaminophen (PERCOCET) 5-325 mg per tablet Indications: Chronic pain syndrome Take 1 (one) tablet by mouth every 4 (four) hours as needed for pain (Days supply per fill: 10) MAX 6/DAY FOR ACUTE POST-OP PAIN . 180 tablet 05/13/2024 06/10/2024 Discontinued (Reorder (Suppress CancelRx Message to Pharmacy)) Start: 03-24-2024 End: 04-23-2024 take 1 tablet by mouth once daily as needed for pain oxyCODONE-acetaminophen (PERCOCET) 5-325 mg per tablet Indications: Chronic pain syndrome Take 1 (one) tablet by mouth nightly as needed for pain (Days supply per fill: 30) . 30 tablet 03/24/2024 04/23/2024 Active Start: 03-24-2024 End: 04-23-2024 take 1 tablet by mouth every four hours as needed Start: 02-20-2024 End: 03-22-2024 Start: 01-12-2024 End: 01-18-2024 take 1 tablet by mouth every six hours as needed 1 tablet, Oral, Every 6 hours PRN, moderate to severe pain, Starting on Thu01/12/24 at 1823 Start: 01-12-2024 take 1 tablet by eduardo th once 1 tablet, Oral, Once, On Thu01/12/24 at 1540, For 1 dose Start: 12-24-2023 End: 03-22-2024 take 1 tablet by mouth once daily as needed for pain oxyCODONE-acetaminophen (PERCOCET) 5-325 mg per tablet Indications: Chronic pain syndrome Take 1 (one) tablet by mouth nightly as needed for pain (Days supply per fill: 30) . 30 tablet 02/20/2024 03/22/2024 Discontinued (Reorder (Suppress CancelRx Message to Pharmacy)) Start: 12-16-2023 End: 12-21-2023 take 1 tablet by mouth once daily as needed for pain oxyCODONE-acetaminophen (PERCOCET) 5-325 mg per tablet Indications: Chronic pain syndrome Take 1 (one) tablet by mouth nightly as needed for pain (Days supply per fill: 30) . 30 tablet 12/16/2023 12/21/2023 Discontinued (Reorder (Suppress CancelRx Message to Pharmacy)) Start: 10-06-2022 End: 10-06-2022 oxyCODONE-acetaminophen (PER COCET) 5-325 mg per tablet Start: 06-05-2020 End: 06-10-2020 take 1 tablet by mouth every six hours as needed for pain, then take 5 tablets by mouth as needed for pain oxyCODONE-acetaminophen (PERCOCET) 5-325 mg per tablet Indications: Diabetic infection of left foot (HCC) , Abscess of chin Take 1 (one) tablet by mouth every 6 (six) hours as needed for pain (Days supply per fill: 5) . 20 tablet 0 06/05/2020 06/10/2020 Active Start: 02-08-2015 End: 06-26-2017 take 1 tablet by mouth twice daily oxyCODONE-acetaminophen (PERCOCET) 5-325 mg per tablet Take 1 tablet by mouth 2 (two) times a day 0 02/08/2015 06/26/2017 Discontinued Start: 07-04-2014 End: 07-06-2014 take 1 tablet by mouth twice daily Oxycodone-Acetaminophen 1 EACH tablet Discontinued 1 TAB PO TWO TIMES DAILY July 04, 2014 1:00am July 06, 2014 1:02pm albuterol 0.83 mg/ml inhalation solution (20 sources) beta2-Adrenergic Agonist Start: 08-29-2024 Albut suraj Sulfate 2.5 mg /3 mL (0.083 %) solution for nebulization Active MG August 29, 2024 12:00am Start: 04-27-2024 End: 04-29-2024 take 2.5 mg by inhalation every six hours as needed for wheezing Start: 03-25-2024 End: 04-04-2024 take 2.5 mg by inhalation every six hours as needed for wheezing Start: 12-10-2023 End: 08-02-2024 take 2.5 mg by inhalation every six hours as needed for wheezing and chronic obstructive pulmonary disease and chronic obstructive pulmonary disease albuterol (PROVENTIL) 2.5 mg /3 mL (0.083 %) nebulizer solution Indications: Chronic obstructive pulmonary disease, unspecified COPD type (HCC) Take 3 mL (2.5 mg total) by nebulization every 6 (six) hours as needed for wheezing or shortness of breath . 75 mL 3 08/02/2024 Active Start: 12-10-2023 End: 01-18-2024 take 2.5 mg by inhalation every six hours as needed for wheezing Start: 12-01-2023 End: 08-02-2024 take 1 puff(s) by inhalation every four to six hours as needed for wheezing albuterol 90 mcg/actuation inhaler Indications: Chronic obstructive pulmonary disease, unspecified COPD type (HCC) Inhale 1 (one) puff every 4 to 6 hours as needed for shortness of breath or wheezing . 18 g 3 08/02/2024 Active Start: 12-01-2023 Start: 03-31-2023 End: 12-01-2023 take 1 puff(s) by inhalation every four to six hours as needed for wheezing albuterol 90 mcg/actuation inhaler Indications: Chronic obstructive pulmonary disease, unspecified COPD type (HCC) Inhale 1 (one) puff every 4 to 6 hours as needed for shortness of breath or wheezing . 03/31/2023 12/01/2023 Discontinued (Reorder (Suppress CancelRx Message to Pharmacy)) Start: 09-12-2022 take 1 puff(s) by in halation every six hours Albuterol Sulfate (Ventolin Hfa) 90 mcg/actuation HFA aerosol inhaler Active 1 PUFF INHALATION Q6H September 12, 2022 12:00am Start: 08-08-2022 take 1 puff(s) by mo uth every four hours as needed Ventolin HFA 108 (90 Base) MCG/ACT inhaler INHALE 1 PUFF BY MOUTH EVERY 4 HOURS NEEDED 08/08/2022 Active Start: 06-14-2021 take 2 puff(s) by in halation four times daily as needed Albuterol Sulfate HFA 108 (90 Base) MCG/ACT 2 puffs Inhalation qid prn May, Active Start: 06-03-2020 End: 06-05-2020 take 2.5 mg by inhalation every two hours as needed 2.5 mg, Inhalation, Every 2 hour PRN (RT), wheezing, shortness of breath, Starting 06/03/20 at 1750 take 1 puff(s) by in halation every six hours as needed Albuterol 108 (90 Base) MCG/ACT Aero Soln inhaler Inhale 1 puff every 6 hours as needed for Shortness of Breath. Active Albuterol (Eqv-ProAir HFA) 90 mcg/inh inhalation aerosol (20 sources) Start: 12-11-2021 take 2 puff(s) by inhalation every four hours Albuterol (Eqv-ProAir HFA) 90 mcg/inh inhalation aerosol 2 puff(s), Inhalation, q4hr Cough and Congestion, 18 gm, Refill(s) 1, [facility], 157, cm, 12/08/21 10:05:00 EDT, Height/Length Dosing, 119, kg, 12/08/21 10:05:00 EDT, Weight Dosing Start Date: 12/11/21 Status: Ordered Start: 10-09-2021 take 2 puff(s) by in halation every four hours Albuterol (Eqv-ProAir HFA) 90 mcg/inh inhalation aerosol 2 puff(s), Inhalation, q4hr Cough and Congestion, 18 gm, Refill(s) 0, [facility], 158, cm, 10/09/21 15:33:00 EDT, Height/Length Dosing, 112.8, kg, 10/09/21 15:33:00 EDT, Weight Dosing Start Date: 10/09/21 Status: Ordered albuterol 0.833 mg/ml / ipratropium bromide 0.167 mg/ml inhalation solution (7 sources) Anticholinergic, beta2-Adrenergic Agonist Start: 04-08-2022 take 3 mL by inhalation four times daily DuoNeb 2.5 mg-0.5 mg/3 mL Soln-Inh 3 mL, Inhalation, QID Shortness of breath or wheezing, 180 mL, Refill(s) 0, [facility], 162, cm, 04/06/22 20:38:00 EST, Height/Length Dosing, 112, kg, 04/06/22 20:38:00 EST, Weight Dosing Start Date: 04/08/22 Status: Ordered aspirin 81 mg chewable tablet (20 sources) Platelet Aggregation Inhibitor, Nonsteroidal Anti-inflammatory Drug Start: 08-22-2022 take 81 mg by mouth once daily Aspirin Active 81 MG PO Daily August 22, 2022 12:00am Start: 07-23-2018 End: 08-20-2022 take 1 tablet by mouth once daily Aspirin (Aspir-81) 81 mg Tablet,Delayed Release (Dr/Ec) Discontinued 81 MG PO Daily July 23, 2018 1:00am August 20, 2022 3:10am Start: 05-28-2015 End: 08-29-2024 take 1 tablet by mouth once daily Aspirin 81 MG tablet,chewable Discontinued 81 MG PO DAILY June 15, 2015 1:00am August 29, 2024 1:56pm atorvastatin 80 mg oral tablet (20 sources) HMG-CoA Reductase Inhibitor Start: 08-05-2024 take 1 tablet by mouth once daily atorvastatin (LIPITOR) 80 MG tablet Take 1 (one) tablet (80 mg total) by mouth daily . 90 tablet 1 08/05/2024 Active Start: 04-07-2022 take 1 tablet by eduardo th once daily atorvastatin 80 mg Tab 80 mg = 1 tab(s), Oral, Daily, # 30 tab(s), Refills(s) 0 Start Date: 04/07/22 Status: Ordered Start: 06-03-2020 End: 06-05-2020 take 20 mg by mouth once daily 20 mg, Oral, Nightly, F irst dose on 06/03/20 at 2330 Start: 06-15-2015 End: 08-29-2024 take 1 tablet by mouth once daily Atorvastatin 10 MG tablet Discontinued 10 MG PO DAILY June 15, 2015 1:00am August 29, 2024 1:56pm Start: 03-08-2015 End: 08-05-2024 take 1 tablet by mouth once daily atorvastatin (LIPITOR) 40 MG tablet Indications: Primary hypertension , Hyperlipidemia, unspecified hyperlipidemia type Take 1 (one) tablet (40 mg total) by mouth nightly . 90 tablet 01/27/2024 08/05/2024 Discontinued (Dose adjustment) Start: 03-08-2015 End: 08-20-2022 atorvastatin (LIPITOR) 20 MG Tab Indications: Atrial fibrillation, unspecified type , SSS (sick sinus syndrome) take 1 tablet by mouth daily.. 30 tablet 01/21/2017 Active azithromycin 250 mg oral tablet (2 sources) Macrolide Antimicrobial Start: 04-09-2022 End: 04-11-2022 take 1 tablet by mouth once daily azithromycin 250 mg Tab 250 mg = 1 tab(s), Oral, Daily, X 2 day(s), # 2 tab(s), Refills(s) 0, Pharmacy: [facility], 162, cm, 04/06/22 20:38:00 EST, Height/Length Dosing, 112, kg, 04/06/22 20:38:00 EST, Weight Dosing Start Date: 04/09/22 Stop Date: 04/11/22 Status: Ordered Start: 06-14-2021 Zithromax 250 MG 2 tablet on the first day, then 1 tablet daily for 4 days Orally Once a day for 5 day(s) May, Active BD Insulin Syringe 27G X 1/2 (2 sources) Start: 03-06-2018 BD Insulin Syringe 27G X 1/2 as directed three times daily Feb, Active benzonatate 200 mg oral capsule (3 sources) Non-narcotic Antitussive Start: 07-31-2022 take 1 capsule by mouth three times daily as needed for cough benzonatate (Tessalon) 200 MG capsule Take 200 mg by mouth 3 (three) times a day as needed for cough. 07/31/2022 Active Blood Pressure Monitor KIT (1 source) Start: 07-02-2015 Blood Pressure Monitor KIT 1 kit by Does not apply route daily 1 kit 0 07/02/2015 Active Blood Pressure Monitoring (ADULT BLOOD PRESSURE CUFF LG) XX KIT (2 sources) Start: 07-02-2012 Blood-Glucose Sensor (Dexcom G6 Sensor) device (1 source) Start: 08-29-2024 Blood-Glucose Sensor (Dexcom G6 Sensor) device Active EACH MC August 29, 2024 12:00am brexpiprazole 1 mg oral tablet (13 sources) Atypical Antipsychotic Start: 06-26-2024 Rexulti 1 mg Tab TAKE 1 TABLET DAILY FOR 7 DAYS, THEN 2 DAILY FOR 7 DAYS AND AFTER IF TOLERATED FOR PSYCHOSIS 06/26/2024 Active brimonidine tartrate 2 mg/ml / brinzolamide 10 mg/ml ophthalmic suspension (1 source) Carbonic Anhydrase Inhibitor, alpha-Adrenergic Agonist Start: 11-09-2023 Brinzolamide-Brimon idine (Simbrinza) 1-0.2 % Suspension Apply 1 drop to eye. Pt given sample by Jessica Puentes MD 11/09/23 11/09/2023 Active brompheniramine maleate 0.4 mg/ml / dextromethorphan hydrobromide 2 mg/ml / pseudoephedrine hydrochloride 6 mg/ml oral solution (15 sources) alpha-Adrenergic Agonist, Uncompetitive E-sfwufe-K-asparta te Receptor Antagonist, Sigma-1 Agonist Start: 10-09-2021 take 5 mL by mouth four times daily Bromfed DM oral syrup 5 mL, Oral, QID for cold symptoms, 200 mL, Refill(s) 0, [facility], 158, cm, 10/09/21 15:33:00 EDT, Height/Length Dosing, 112.8, kg, 10/09/21 15:33:00 EDT, Weight Dosing Start Date: 10/09/21 Status: Ordered Brompheniramine / Pseudoephedrine (2 sources) alpha-Adrenergic Agonist Start: 10-09-2021 take 5 mL by mouth four times daily Bromfed DM oral syrup 5 mL, Oral, QID for cold symptoms, 200 mL, Refill(s) 0, [facility], 158, cm, 10/09/21 15:33:00 EDT, Height/Length Dosing, 112.8, kg, 10/09/21 15:33:00 EDT, Weight Dosing Start Date: 10/09/21 Status: Ordered chlorthalidone 25 mg oral tablet (20 sources) Thiazide-like Diuretic Start: 08-29-2022 End: 08-02-2024 take 1 tablet by mouth once daily chlorthalidone (HYGROTON) 25 MG tablet Indications: Primary hypertension Take 1 (one) tablet (25 mg total) by mouth daily . 90 tablet 1 08/02/2024 Active cholecalciferol 0.025 mg oral tablet (7 sources) Vitamin D Start: 04-08-2022 take 1 tablet by mouth once daily cholecalciferol 1000 intl units (25 mcg) oral tablet 25 mcg = 1 tab(s), Oral, Daily, # 30 tab(s), Refills(s) 0, Pharmacy: [facility], 162, cm, 04/06/22 20:38:00 EST, Height/Length Dosing, 112, kg, 04/06/22 20:38:00 EST, Weight Dosing Start Date: 04/08/22 Status: Ordered citalopram 40 mg oral tablet (20 sources) Serotonin Reuptake Inhibitor Start: 03-25-2024 End: 04-04-2024 Start: 03-22-2024 End: 08-02-2024 take 1 tablet by mouth once daily citalopram (CELEXA) 40 MG tablet Indications: Bipolar 1 disorder (HCC) Take 1 (one) tablet (40 mg total) by mouth daily . 90 tablet 1 08/02/2024 Active Start: 10-07-2023 End: 05-08-2024 take 1 tablet by mouth once daily citalopram (CELEXA) 20 MG tablet Take 1 (one) tablet (20 mg total) by mouth daily . 30 tablet 2 02/08/2024 03/22/2024 Discontinued Start: 08-03-2023 End: 10-07-2023 citalopram (CELEXA) 10 MG ta blet Take half tab daily for 1 week and then 1 tab thereafter . 30 tablet 1 08/03/2023 10/07/2023 Discontinued (Reorder (Suppress CancelRx Message to Pharmacy)) clindamycin 300 mg oral capsule (2 sources) Lincosamide Antibacterial Start: 04-04-2024 End: 04-08-2024 Dexcom G6 Vibrator Operator Misc (20 sources) Start: 12-03-2023 Dexcom G6 Rece iver Misc Indications: Type 2 diabetes mellitus with diabetic polyneuropathy, with long-term current use of insulin (HCC) Use as directed for continuous glucose monitoring . 1 each 12/03/2023 Start: 12-03-2023 Dexcom G6 Rece iver Misc Indications: Type 2 diabetes mellitus with diabetic polyneuropathy, with long-term current use of insulin (HCC) Use as directed for continuous glucose monitoring . 1 each 12/03/2023 Suspended Start: 12-03-2023 Dexcom G6 Rece iver Misc Indications: Type 2 diabetes mellitus with diabetic polyneuropathy, with long-term current use of insulin (HCC) Use as directed for continuous glucose monitoring . 1 each 12/03/2023 Active Dexcom G6 Sensor Simran (20 sources) Start: 12-03-2023 Dexcom G6 Sens or Simran Indications: Type 2 diabetes mellitus with diabetic polyneuropathy, with long-term current use of insulin (HCC) Use as directed for continuous glucose monitoring change every 10 days . 3 each 12/03/2023 Start: 12-03-2023 Dexcom G6 Sens or Simran Indications: Type 2 diabetes mellitus with diabetic polyneuropathy, with long-term current use of insulin (HCC) Use as directed for continuous glucose monitoring change every 10 days . 3 each 12/03/2023 Suspended Start: 12-03-2023 Dexcom G6 Sens or Simran Indications: Type 2 diabetes mellitus with diabetic polyneuropathy, with long-term current use of insulin (HCC) Use as directed for continuous glucose monitoring change every 10 days . 3 each 12/03/2023 Active Dexcom G6 Transmitter Simran (20 sources) Start: 12-03-2023 Dexcom G6 Kelley veda Khalil Indications: Type 2 diabetes mellitus with diabetic polyneuropathy, with long-term current use of insulin (HCC) Use as directed for continuous glucose monitoring change every 3 months . 1 each 12/03/2023 Start: 12-03-2023 Dexcom G6 Kelley veda Khalil Indications: Type 2 diabetes mellitus with diabetic polyneuropathy, with long-term current use of insulin (HCC) Use as directed for continuous glucose monitoring change every 3 months . 1 each 12/03/2023 Suspended Start: 12-03-2023 Dexcom G6 Kelley veda Khalil Indications: Type 2 diabetes mellitus with diabetic polyneuropathy, with long-term current use of insulin (HCC) Use as directed for continuous glucose monitoring change every 3 months . 1 each 12/03/2023 Active Diabetic supplies (17 sources) Start: 01-21-2019 Diabetic suppl ies Diabetic supplies, Insulin needles and syringes, alcohol swabs- three months supply (3 months). check QIDACHS. No refills. ICD code- E11.9, Print Requisition, Supply Start Date: 01/21/19 Status: Ordered dicyclomine hydrochloride 10 mg oral capsule (5 sources) Anticholinergic Start: 05-04-2022 take 2 capsules by mouth four times daily Bentyl 10 mg Cap 20 mg = 2 cap(s), Oral, QID, # 20 cap(s), Refills(s) 0, Pharmacy: [facility], 157, cm, 05/04/22 15:39:00 EST, Height/Length Dosing, 130, kg, 05/04/22 15:39:00 EST, Weight Dosing Start Date: 05/04/22 Status: Ordered Start: 01-24-2022 End: 01-31-2022 take 1 tablet by mouth three times daily dicyclomine 20 mg Tab 20 mg = 1 tab(s), Oral, TID, X 7 day(s), # 21 tab(s), Refills(s) 0, Pharmacy: [facility], 157, cm, 01/24/22 10:48:00 EDT, Height/Length Dosing, 115, kg, 01/24/22 10:48:00 EDT, Weight Dosing Start Date: 01/24/22 Stop Date: 01/31/22 Status: Ordered diphenhydrAMINE hydrochloride 25 mg oral tablet (10 sources) Histamine-1 Receptor Antagonist Start: 05-13-2023 End: 06-12-2023 take 1 tablet by mouth twice daily diphenhydrAMINE (BENADRYL) 25 mg tablet Take 1 (one) tablet (25 mg total) by mouth 2 (two) times a day . 60 tablet 0 05/13/2023 06/12/2023 Active Start: 02-18-2023 End: 02-20-2023 take 1 tablet by mouth every six hours as needed diphenhydrAMINE (BENADRYL) tablet 25 mg Start: 01-21-2017 diphenhydrAMIN E 50 MG Cap Indications: Atrial fibrillation, unspecified type , SSS (sick sinus syndrome) Take 1 hour prior to pacemaker implant 02/23/17- 7am 1 capsule 01/21/2017 Active doxycycline hyclate 100 mg oral tablet (20 sources) Tetracycline-class Drug Start: 04-29-2024 End: 05-13-2024 take 1 tablet by mouth twice daily doxycycline hyclate (VIBRA-TABS) 100 MG tablet Take 1 (one) tablet (100 mg total) by mouth 2 (two) times a day for 14 days . 28 tablet 04/29/2024 11:47 AM EST 04/29/2024 05/13/2024 Active Start: 04-04-2024 End: 04-08-2024 Start: 01-15-2024 End: 01-18-2024 100 mg, Oral, 2 times daily, First dose on Thu01/15/24 at 2100, Do not crush or open. Patient to sit up after administration for 30 minutes after taking and take with at least 8 ounces of water Take 1 hour before or 4 hours after metallic cations (e.g.antacids, aluminum,magnesium, calcium, ferrous sulfate), Indication: Diabetic Foot Infection Start: 01-12-2024 End: 01-12-2024 100 mg, Oral, Once, On Thu at 1700, For 1 dose, Do not crush or open. Patient to sit up after administration for 30 minutes after taking and take with at least 8 ounces of water Take 1 hour before or 4 hours after metallic cations (e.g.antacids, aluminum,magnesium, calcium, ferrous sulfate), Indication: Diabetic Foot Infection Start: 09-19-2023 End: 09-26-2023 take 1 capsule by mouth twice daily doxycycline monohydrate (MONODOX) 100 MG capsule Take 1 (one) capsule (100 mg total) by mouth 2 (two) times a day for 7 days . 14 capsule 0 09/19/2023 09/26/2023 Active Start: 11-28-2022 End: 08-29-2024 take 1 capsule by mouth twice daily doxycycline hyclate (VIBRAMYCIN) 100 MG capsule Indications: Diabetic ulcer of right foot associated with type 2 diabetes mellitus, unspecified part of foot, unspecified ulcer stage (HCC) Take 1 (one) capsule (100 mg total) by mouth 2 (two) times a day for 10 days . 20 capsule 01/27/2024 02/06/2024 Start: 08-20-2022 End: 08-22-2022 take 100 mg by mouth twice daily Doxycycline Hyclate Discontinued 100 MG PO Twice daily August 20, 2022 12:00am August 22, 2022 1:34pm Start: 08-19-2022 End: 08-29-2022 take 1 tablet by mouth every twelve hours doxycycline hyclate 100 mg Tab 100 mg = 1 tab(s), Oral, q12hr, X 10 day(s), # 20 tab(s), Refills(s) 0, Pharmacy: [facility], 157, cm, 08/19/22 17:10:00 EDT, Height/Length Dosing, 113, kg, 08/19/22 17:10:00 EDT, Weight Dosing Start Date: 08/19/22 Stop Date: 08/29/22 Status: Ordered Start: 06-06-2020 End: 06-15-2020 take 1 capsule by mouth twice daily doxycycline hyclate (VIBRAMYCIN) 100 MG capsule Take 1 (one) capsule (100 mg total) by mouth 2 (two) times a day for 9 days Start: 06/06/20. 18 capsule 0 06/06/2020 06/15/2020 Active Start: 06-04-2020 End: 06-05-2020 take 100 mg by mouth every twelve hours 100 mg, Oral, Every 12 hours, First dose on 06/04/20 at 0500 Do not crush or open. Patient to sit up after administration for 30 minutes after taking and take with at least 8 ounces of water Take 1 hour before or 4 hours after metallic cations (e.g.antacids, aluminum,magnesium, calcium, ferrous sulfate) Indication: Skin & Soft Tissue Infection Start: 06-03-2020 End: 06-03-2020 doxycycline (VIBRAMYCIN) ora l solid 100 mg Drug or medicament (substance) (2 sources) Emgality Pen 120 mg/mL Pen (2 sources) Start: 06-01-2020 Emgality Pen 120 mg/mL Pen every 30 (thirty) days For headaches, had 04/2020; states need to pick it up tomorrow at pharmacy - uses [facility] [place] . 0 06/01/2020 Active fluconazole 150 mg oral tablet (3 sources) Azole Antifungal Start: 09-26-2022 take 1 tablet by mouth once daily, then take 1 tablet by mouth every week fluconazole (Diflucan) 150 MG tablet TAKE 1 TABLET BY MOUTH ONCE DAILY NOW THEN 1 ONCE A WEEK DIRECTED 09/26/2022 Active FreeStyle Test - (2 sources) Start: 07-14-2018 Start: 07-14-2018 FreeStyle Test - as directed In Vitro QID for 90 days Jun, Active 1 ml galcanezumab-gnlm 120 m g/ml auto-injector (6 sources) Start: 07-18-2022 Emgality 120 M G/ML auto-injector USE DIRECTED ONCE EVERY MONTH FOR 30 DAYS 07/18/2022 Active Start: 06-01-2020 End: 02-17-2023 Emgality Pen 120 mg/mL Pen e very 30 (thirty) days For headaches, had 04/2020; states need to pick it up tomorrow at pharmacy - uses [facility] in [place] . 0 06/01/2020 02/17/2023 Discontinued 0.2 ml glucagon 5 mg/ml auto-injector (20 sources) Antihypoglycemic Agent Start: 12-03-2023 End: 12-03-2023 glucagon (Gvoke HypoPen 2-Pack) 1 mg/0.2 mL AtIn Indications: Type 2 diabetes mellitus with diabetic polyneuropathy, with long-term current use of insulin (HCC) Inject 0.2 mL (1 mg total) under the skin as needed . 2 mL 1 12/03/2023 Active Start: 12-03-2023 GLUCOSE MONITOR PRESCRIPTION (2 sources) Start: 04-01-2017 GLUCOSE MONITO R PRESCRIPTION Dispense ONE. Patient requires Insulin. 1 Each 1 04/01/2017 Active Handicap placard (14 sources) Start: 09-30-[address] Handicap placard, See Instructions, 1 EA, 0, Dispense handicap placard, justyn for 5 years., Supply Start Date: 09/30/21 Status: Ordered hydrOXYzine pamoate 50 mg oral capsule (20 sources) Antihistamine Start: 06-26-2024 take 1 capsule by mouth three times daily as needed hydrOXYzine (VISTARIL) 50 MG capsule Take 1 (one) capsule (50 mg total) by mouth 3 (three) times a day as needed . 06/26/2024 Active Start: 03-25-2024 End: 08-02-2024 take 1 capsule by mouth twice daily as needed for anxiety hydrOXYzine (VISTARIL) 25 MG capsule Take 1 (one) capsule (25 mg total) by mouth 2 (two) times a day as needed for itching or anxiety . 180 capsule 03/25/2024 08/02/2024 Discontinued (Therapy completed) Start: 01-12-2024 End: 01-18-2024 Start: 10-15-2023 End: 01-18-2024 take 1 tablet by mouth once daily hydrOXYzine (ATARAX) 25 MG tablet Take 1 (one) tablet (25 mg total) by mouth daily . 10/15/2023 01/18/2024 Discontinued (Stop Taking at Discharge) Start: 08-03-2023 End: 09-03-2023 take 1 tablet by mouth twice daily as needed for anxiety hydrOXYzine (ATARAX) 25 MG tablet Take 1 (one) tablet (25 mg total) by mouth 2 (two) times a day as needed for anxiety . 30 tablet 2 08/03/2023 09/03/2023 Start: 02-19-2023 End: 02-20-2023 hydrOXYzine (ATARAX) tablet 25 mg Start: 09-12-2022 take 1 capsule by mo uth at bedtime as needed hydrOXYzine pamoate 25 mg Cap 25 mg = 1 cap(s), Oral, Bedtime, PRN Insomnia, # 40 cap(s), Refills(s) 0 Start Date: 09/12/22 Status: Ordered Start: 07-11-2022 take 1 capsule by mo uth once daily at bedtime as needed hydrOXYzine pamoate (Vistaril) 25 MG capsule TAKE 1 CAPSULE BY MOUTH EVERY DAY AT BEDTIME NEEDED FOR INSOMNIA 07/11/2022 Active Start: 05-31-2020 End: 02-17-2023 hydrOXYzine (ATARAX) 25 MG t ablet 1 (one) tablet (25 mg total) as needed States forgets how many times per day can use--as needed per patient . 0 05/31/2020 02/17/2023 Discontinued End: 01-18-2024 take 1 capsule by mouth twice daily hydrOXYzine (VISTARIL) 50 MG capsule Take 1 (one) capsule (50 mg total) by mouth 2 (two) times a day . 01/18/2024 Discontinued (Stop Taking at Discharge) inhalational spacing device inhaler (20 sources) Start: 03-10-2024 End: 03-10-2025 inhalational spacing device inhaler Use as instructed . 1 each 2 03/10/2024 03/10/2025 Start: 03-10-2024 End: 03-10-2025 inhalational spacing device inhaler Use as instructed . 1 each 2 03/10/2024 03/10/2025 Suspended Start: 03-10-2024 End: 03-10-2025 inhalational spacing device inhaler Use as instructed . 1 each 2 03/10/2024 03/10/2025 Active insulin lispro 100 unt/ml injectable solution (20 sources) Insulin Analogue Start: 04-28-2024 inject 10 [IU] by subcutaneous injection once 10 Units, Subcutaneous, Once, On Danelle 04/28/24 at 0630, For 1 dose Start: 04-27-2024 End: 04-29-2024 0-30 Units, Subcutaneous, 3 times daily before meals, First dose (after last modification) on Thu04/27/24 at 0730, * Dose should be given EITHER: No sooner than 10-15 minutes BEFORE a meal ( Specific Prandial Doses or NO Prandial Dose - Corrective Scale ONLY ) - OR - Immediately AFTER meal completed ( Carb Counting Ratio ), Prandial Insulin Dosing Method: NO Prandial Dose - Corrective Scale ONLY, Corrective Insulin Regimen (select desired scale to cover BG result): HIGH Resistance Scale, Dose Reduction Threshold (at meals) for POC Blood Glucose less than or equal to: 80, For Downtime Calculator, use: Insulin SC MEALtime PREprandial Start: 12-08-2023 End: 04-04-2024 Start: 02-18-2023 End: 02-20-2023 0-30 Units, Subcutaneous, 3 times daily before meals, First dose on Thu02/18/23 at 0730 Continue to administer as long as tube feedings or parenteral nutrition are running. If tube feed or parenteral nutrition held, hold the base dose but continue to give corrective insulin as ordered. Resume total insulin once tube feedings resumed. Prandial Insulin Dosing Method: NO Prandial Dose - Corrective Scale ONLY Corrective Insulin Regimen (select desired scale to cover BG result): Insulin RESISTANT Scale For Downtime Calculator, use: Insulin SC MEALtime PREprandial Start: 09-13-2022 End: 09-13-2022 Insulin Lispro Sliding Scale 0-10 Units, Injection-Insulin, SubCutaneous, Start date 09/13/22 16:30:00 EDT Start Date: 09/13/22 Stop Date: 09/13/22 Status: Completed Start: 09-13-2022 End: 09-13-2022 Insulin Lispro Sliding Scale 0-10 Units, Injection-Insulin, SubCutaneous, Start date 09/13/22 11:30:00 EDT Start Date: 09/13/22 Stop Date: 09/13/22 Status: Completed Start: 09-13-2022 End: 09-13-2022 Insulin Lispro Sliding Scale 0-10 Units, Injection-Insulin, SubCutaneous, Start date 09/13/22 7:30:00 EDT Start Date: 09/13/22 Stop Date: 09/13/22 Status: Completed Start: 07-18-2022 End: 12-07-2023 insulin lispro (AdmeLOG,Samantha LOG) 100 unit/mL injection Indications: Type 2 diabetes mellitus with diabetic polyneuropathy, with long-term current use of insulin (HCC) Inject up to 150 units once daily via pump . 50 mL 5 12/08/2023 Active Start: 04-08-2022 End: 04-08-2022 Insulin Lispro Sliding Scale 0-10 Units, Injection-Insulin, SubCutaneous, Start date 04/08/22 12:00:00 EST Start Date: 04/08/22 Stop Date: 04/08/22 Status: Completed Start: 04-08-2022 End: 04-08-2022 Insulin Lispro Sliding Scale 0-10 Units, Injection-Insulin, SubCutaneous, Start date 04/08/22 4:00:00 EST Start Date: 04/08/22 Stop Date: 04/08/22 Status: Completed Start: 04-07-2022 End: 04-07-2022 Insulin Lispro Sliding Scale 0-10 Units, Injection-Insulin, SubCutaneous, Start date 04/07/22 16:00:00 EST Start Date: 04/07/22 Stop Date: 04/07/22 Status: Completed Start: 09-07-2018 End: 02-20-2023 insulin lispro (AdmeLOG,Samantha LOG) injection 0-15 Units Start: 09-07-2018 Insulin Lispro (Admelog U-100 Insulin Lispro) 100 unit/mL Solution Active 0 .ROUTE .COMPLEX September 07, 2018 12:00am Patient uses up to 200 Units of Insulin delivered via Omnipod. Start: 07-23-2018 End: 09-07-2018 Insulin Lispro UNIT Subcutan eous Before meals and at bedtime July 23, 2018 Discontinued Start: 07-23-2018 End: 09-07-2018 inject 1 [IU] by subcutaneous injection at bedtime Insulin Lispro (Admelog Solostar U-100 Insulin) 100 unit/mL Insulin Pen Discontinued UNIT SUBCUT Before meals and at bedtime July 23, 2018 1:00am September 07, 2018 10:01am inject 4 [IU] by sub cutaneous injection three times daily before mealtime insulin lispro ( HumaLOG) 100 unit/mL injection Inject under the skin 3 (three) times a day before meals Sliding Scale 0 Active Insulin Lispro (Admelog U-10 0 Insulin Lispro) 100 unit/mL Solution (1 source) Start: 09-07-2018 Insulin Lispro (Admelog U-100 Insulin Lispro) 100 unit/mL Solution Active 0 .ROUTE .COMPLEX September 07, 2018 12:00am Patient uses up to 200 Units of Insulin delivered via Omnipod. insulin lispro (HUMALOG) 100 UNIT/ML injection vial (1 source) insulin lispro ( HUMALOG) 100 UNIT/ML injection vial Inject into the skin 3 times daily (before meals) 8 am, check sugar-by scale, and by amount eaten takes insulin, do the same for lunch, and dinner Does not have scale with her 0 Active insulin lispro 100 UNIT/ML v ial (2 sources) Start: 04-01-2017 insulin lispro 100 UNIT/ML vial - dose 12 units per meal, can do 6 units if having a smaller meal - also dose before meals and at bedtime for BG >150: 151-200 = 2 units 201-250 = 4 units 251-300 = 6 units 301-350 = 8 units 351-400 = 10 units 1 vial 1 04/01/2017 Active insulin lispro 100 units/mL injectable solution (20 sources) Start: 09-30-2021 insulin lispro 100 units/mL injectable solution SubCutaneous, # 10 mL, Refills(s) 0 Start Date: 09/30/21 Status: Ordered Start: 09-30-2021 insulin lispro 100 units/mL injectable solution 5 unit(s), SubCutaneous, TIDAC, # 10 mL, Refills(s) 0 Start Date: 09/30/21 Status: Ordered INSULIN PUMP CARTRIDGE SUBQ (20 sources) INSULIN PUMP CAR TRIDGE SUBQ Inject under the skin Use as directed . INSULIN PUMP CAR TRIDGE SUBQ Inject under the skin Use as directed . Active INSULIN PUMP CAR TRIDGE SUBQ Inject under the skin Use as directed . Suspended Iohexol (3 sources) Radiographic Contrast Agent Start: 10-07-2022 Io hexol SOLN 3,000 mg Start: 10-07-2022 End: 10-07-2022 Iohexol SOLN 15,000 mg isopropyl alcohol 0.7 ml/ml medicated pad (20 sources) Start: 12-08-2023 End: 06-05-2024 alcohol swabs PadM Indicatio ns: Type 2 diabetes mellitus with diabetic polyneuropathy, with long-term current use of insulin ([facility]) Apply 1 (one) Swab. topically 5 (five) times a day Clean area before administering insulin. . 150 each 5 12/08/2023 Active Start: 12-08-2023 End: 06-05-2024 lamoTRIgine 25 mg oral tablet (20 sources) Mood Stabilizer, Anti-epileptic Agent Start: 02-08-2024 End: 04-29-2024 take 1 tablet by mouth twice daily lamoTRIgine (LAMICTAL) 25 MG tablet Take 1 (one) tablet (25 mg total) by mouth 2 (two) times a day . 60 tablet 2 02/08/2024 Active Start: 10-07-2023 End: 02-08-2024 lamoTRIgine (LAMICTAL) 25 MG tablet Take 1 tab daily for 2 weeks and then twice a day thereafter . 30 tablet 2 10/07/2023 02/08/2024 Discontinued (Reorder (Suppress CancelRx Message to Pharmacy)) levETIRAcetam 1000 mg oral tablet (20 sources) Anti-epileptic Agent Start: 01-14-2024 End: 01-18-2024 take 1000 mg by mouth twice daily 1,000 mg, Oral, 2 times daily, First dose on Danelle 01/14/24 at 1100 Start: 03-29-2023 End: 03-30-2023 1,000 mg, Oral, 2 times mike y, First dose on 03/29/23 at 2100 Do Not Crush or Chew if administering orally due to bitter taste. May be crushed if given via tube. Start: 02-18-2023 End: 02-20-2023 take 1000 mg by mouth twice daily 1,000 mg, Oral, 2 times daily, First dose on Thu02/18/23 at 0900 Start: 01-13-2023 End: 10-22-2024 take 1 tablet by mouth twice daily levETIRAcetam (KEPPRA) 1000 MG tablet Take 1 (one) tablet (1,000 mg total) by mouth 2 (two) times a day . 60 tablet 09/22/2024 10/22/2024 Active Start: 09-12-2022 take 1 tablet by eduardo th twice daily levETIRAcetam 750 mg oral tablet, dispersible 750 mg = 1 tab(s), Oral, BID, Refills(s) 0 Start Date: 09/12/22 Status: Ordered Start: 08-01-2022 take 1 tablet by eduardo th every twelve hours levETIRAcetam (Keppra) 750 MG tablet Take 1 tablet by mouth every 12 (twelve) hours. 08/01/2022 Active Start: 02-27-2022 take 1 tablet by eduardo th twice daily Keppra 250 mg Tab 250 mg = 1 tab(s), Oral, BID, # 60 tab(s), Refills(s) 0, Pharmacy: [facility], 157, cm, 02/27/22 12:02:00 EDT, Height/Length Dosing, 113.5, kg, 02/27/22 12:02:00 EDT, Weight Dosing Start Date: 02/27/22 Status: Ordered Start: 03-14-2021 take 1 tablet by eduardo th twice daily levETIRAcetam 500 mg oral tablet, dispersible 500 mg = 1 tab(s), BID, Refills(s) 0, Seizure Start Date: 03/14/21 Status: Ordered Start: 03-14-2021 take 1 tablet by eduardo th once daily levETIRAcetam 500 mg oral tablet, dispersible 500 mg = 1 tab(s), Daily, Refills(s) 0, Seizure Start Date: 03/14/21 Status: Ordered Start: 08-04-2019 take 750 mg by mouth twice daily Levetiracetam Active 750 MG PO Twice daily August 04, 2019 12:00am Start: 04-13-2015 End: 08-29-2024 take 2 tablets by mouth twice daily Levetiracetam 500 MG tablet Discontinued 1000 MG PO TWO TIMES DAILY 60 April 13, 2015 1:00am August 29, 2024 1:56pm Start: 03-02-2015 End: 06-05-2020 take 500 mg by mouth twice daily Levetiracetam Active 500 MG PO Twice daily August 04, 2019 12:00am Start: 03-02-2015 take 1 tablet by eduardo th twice daily levETIRAcetam (KEPPRA) 1000 MG tablet Take 1,000 mg by mouth 2 (two) times a day 1 03/02/2015 Active take 1 tablet by eduardo th every twelve hours Keppra 750 MG 1 tablet Orally every 12 hrs Active levothyroxine sodium 0.075 mg oral tablet (20 sources) l-Thyroxine Start: 04-27-2024 End: 04-29-2024 take 30 mL by mouth once daily 75 mcg, Oral, Daily, First dose (after last modification) on Thu04/27/24 at 0600, Avoid administration with soybean flour, cottonseed meal, walnuts, and dietary fiber. Administer at least 1 hour before breakfast. Hold continuous tube feeds for at least 1 hour before until 1 hour after each dose. Flush tube with 30mL of water before and after administration. Tube feed rate may need adjusted to meet caloric needs. Start: 04-07-2022 take 1 tablet by eduardo once daily Synthroid 75 mcg (0.075 mg) Tab 75 mcg = 1 tab(s), Oral, Daily, # 30 tab(s), Refills(s) 0 Start Date: 04/07/22 Status: Ordered Start: 09-30-2021 End: 12-29-2021 Synthroid 75 mcg Tab 75 mcg = 1 tab(s), Oral, Daily, take on an empty stomach from meds, vitamins, food by 60 minutes, X 90 day(s), # 90 tab(s), Refills(s) 0, Pharmacy: [facility], 158, cm, 09/30/21 14:00:00 EDT, Height/Length Dosing, 112.8, kg, 09/30... Start Date: 09/30/21 Stop Date: 12/29/21 Status: Ordered Start: 06-04-2020 End: 06-05-2020 take 75 ug by mouth once daily 75 mcg, Oral, Daily, Fi rst dose on 06/04/20 at 1400 For patients on continuous tube feed: Hold TF from 1 hr before until 1 hr after each dose. TF rate may need adjustment to meet caloric needs. Start: 04-26-2016 End: 08-02-2024 take 1 tablet by mouth once daily levothyroxine (SYNTHROID, LEVOTHROID) 75 MCG tablet Indications: Hypothyroidism, unspecified type Take 1 (one) tablet (75 mcg total) by mouth once daily . 90 tablet 1 08/02/2024 Active Levothyroxine So dium (LEVOTHYROXINE PO) Take 75 tablets by mouth daily. Active lisinopril 40 mg oral tablet (20 sources) Angiotensin Converting Enzyme Inhibitor Start: 03-25-2024 End: 03-26-2024 Start: 02-11-2024 End: 08-02-2024 take 1 tablet by mouth once daily lisinopriL (PRINIVIL,ZESTRIL) 40 MG tablet Indications: Primary hypertension Take 1 (one) tablet (40 mg total) by mouth daily . 90 tablet 1 08/02/2024 Active Start: 09-03-2023 End: 02-11-2024 take 1 tablet by mouth once daily lisinopriL (PRINIVIL,ZESTRIL) 30 MG tablet Indications: Primary hypertension Take 1 (one) tablet (30 mg total) by mouth daily . 90 tablet 1 01/27/2024 02/11/2024 Discontinued (Dose adjustment) Start: 03-31-2023 End: 09-03-2023 take 1 tablet by mouth once daily lisinopriL (PRINIVIL,ZESTRIL) 20 MG tablet Indications: Hypertensive urgency Take 1 (one) tablet (20 mg total) by mouth daily . 90 tablet 1 05/06/2023 09/03/2023 Discontinued (Dose adjustment) Start: 02-18-2023 End: 02-19-2023 take 40 mg by mouth once daily at lunch 40 mg, Oral, Daily with lunch, First dose on Thu02/18/23 at 1200 Start: 09-25-2022 End: 02-28-2023 take 1 tablet by mouth once daily lisinopriL (PRINIVIL,ZESTRIL) 40 MG tablet Indications: Hypertensive urgency Take 1 (one) tablet (40 mg total) by mouth daily . 90 tablet 1 02/11/2024 Active Start: 09-15-2022 End: 09-15-2022 lisinopril 20 mg Tab 40 mg = 2 tab(s), Tab, Oral, Start date 09/15/22 9:00:00 EDT, 09/12/22 17:37:00 EDT Start Date: 09/15/22 Stop Date: 09/15/22 Status: Completed Start: 08-20-2022 End: 09-12-2022 take 1 tablet by mouth once daily lisinopril 40 mg Tab 40 mg = 1 tab(s), Oral, Daily, # 30 tab(s), Refills(s) 0 Start Date: 09/12/22 Status: Ordered Start: 07-02-2012 End: 08-29-2024 take 1 tablet by mouth once daily Lisinopril 5 MG tablet Discontinued 5 MG PO DAILY August 22, 2012 12:00am August 29, 2024 1:56pm take 1.5 tablets by mouth once daily Lisinopril 20 MG tablet Take 1.5 tablets by mouth daily. Active lithium carbonate 300 mg ora l capsule (4 sources) Start: 01-21-2017 lithium 300 MG Cap Indications: Atrial fibrillation, unspecified type , SSS (sick sinus syndrome) 300mg in AM and 600mg QHS 90 capsule 01/21/2017 Active take 2 capsules by mouth once da yoselin lithium 300 MG capsule Take 600 mg by mouth Daily with supper 0 Active loratadine 10 mg oral tablet (20 sources) Start: 02-11-2024 End: 08-02-2024 take 1 tablet by mouth once daily loratadine (CLARITIN) 10 mg tablet Take 1 (one) tablet (10 mg total) by mouth daily . 90 tablet 1 08/02/2024 Active losartan potassium 25 mg oral tablet (20 sources) Angiotensin 2 Receptor Kathia Start: 09-30-2021 End: 12-29-2021 take 1 tablet by mouth once daily losartan 25 mg Tab 25 mg = 1 tab(s), Oral, Daily, X 90 day(s), # 90 tab(s), Refills(s) 0, Pharmacy: [facility], 158, cm, 09/30/21 14:00:00 EDT, Height/Length Dosing, 112.8, kg, 09/30/21 14:00:00 EDT, Weight Dosing Start Date: 09/30/21 Stop Date: 12/29/21 Status: Ordered Start: 07-14-2017 End: 03-24-2019 take 25 mg by mouth once daily Losartan Discontinued 2 5 MG PO Daily July 23, 2018 1:00am March 24, 2019 8:31am meclizine hydrochloride 25 mg oral tablet (20 sources) Antiemetic Start: 09-30-2021 take 1 tablet by mouth three times daily as needed for dizziness meclizine 25 mg Tab 25 mg = 1 tab(s), Oral, TID, PRN as needed for dizziness, # 30 tab(s), Refills(s) 0, Pharmacy: [facility], 158, cm, 09/30/21 14:00:00 EDT, Height/Length Dosing, 112.8, kg, 09/30/21 14:00:00 EDT, Weight Dosing Start Date: 09/30/21 Status: Ordered Start: 11-14-2020 take 1 tablet by eduardo three times daily as needed for dizziness meclizine 25 mg Tab 25 mg = 1 tab(s), Oral, TID, PRN as needed for dizziness, # 30 tab(s), Refills(s) 0, Pharmacy: [facility]5, 157, cm, 11/14/20 15:53:00 EDT, Height/Length Dosing, 117.1, kg, 11/14/20 15:53:00 EDT, Weight Dosing Start Date: 11/14/20 Status: Ordered meloxicam 15 mg oral tablet (19 sources) Nonsteroidal Anti-inflammatory Drug Start: 09-30-2021 End: 12-29-2021 take 1 tablet by mouth once daily meloxicam 15 mg Tab 15 mg = 1 tab(s), Oral, Daily, X 90 day(s), # 90 tab(s), Refills(s) 0, Pharmacy: [facility], 158, cm, 09/30/21 14:00:00 EDT, Height/Length Dosing, 112.8, kg, 09/30/21 14:00:00 EDT, Weight Dosing Start Date: 09/30/21 Stop Date: 12/29/21 Status: Ordered Start: 07-14-2017 End: 03-24-2019 take 15 mg by mouth once daily Meloxicam Discontinued 15 MG PO Daily 0 January 29, 2019 11:26am March 24, 2019 8:32am metFORMIN hydrochloride 1000 mg oral tablet (20 sources) Biguanide Start: 03-29-2015 End: 07-25-2024 take 1 tablet by mouth twice daily metFORMIN (GLUCOPHAGE) 1000 MG tablet Indications: Diabetic ulcer of right foot associated with type 2 diabetes mellitus, unspecified part of foot, unspecified ulcer stage (HCC) Take 1 (one) tablet (1,000 mg total) by mouth 2 (two) times a day . 60 tablet 5 01/27/2024 Active Start: 08-22-2012 End: 08-29-2024 take 2 tablets by mouth twice daily Metformin 500 MG tablet Discontinued 1000 MG PO TWO TIMES DAILY August 22, 2012 12:00am August 29, 2024 1:56pm methocarbamol 500 mg oral tablet (1 source) Muscle Relaxant Start: 06-02-2022 End: 06-05-2022 take 1 tablet by mouth three times daily Robaxin 500 mg Tab 500 mg = 1 tab(s), Oral, TID, X 3 day(s), # 9 tab(s), Refills(s) 0, Pharmacy: [facility], 157, cm, 06/02/22 15:53:00 EST, Height/Length Dosing, 116.2, kg, 06/02/22 15:53:00 EST, Weight Dosing Start Date: 06/02/22 Stop Date: 06/05/22 Status: Ordered 24 hr metoprolol succinate 50 mg extended release oral tablet (20 sources) beta-Adrenergic Kathia Start: 08-29-2024 take 1 tablet by mouth every twenty-four hours Metoprolol Succinate 50 mg tablet extended release 24 hr Active MG PO August 29, 2024 12:00am Start: 04-27-2024 End: 04-29-2024 take 25 mg by mouth twice daily 25 mg, Oral, 2 times d aily, First dose (after last modification) on Thu04/27/24 at 0900 Start: 04-01-2024 End: 04-04-2024 Start: 01-18-2024 End: 01-18-2024 take 25 mg by mouth once daily 25 mg, Oral, Daily, Fir st dose (after last modification) on Thu01/18/24 at 0900, Hold if sbp Start: 10-13-2023 End: 01-29-2025 take 1 tablet by mouth once daily metoprolol succinate (TOPROL-XL) 50 MG 24 hr tablet Indications: Primary hypertension Take 1 (one) tablet (50 mg total) by mouth daily . 90 tablet 1 08/02/2024 01/29/2025 Active Start: 02-20-2023 End: 10-13-2023 take 1 tablet by mouth once daily metoprolol succinate (TOPROL-XL) 25 MG 24 hr tablet Indications: Hypertensive urgency Take 1 (one) tablet (25 mg total) by mouth daily . 90 tablet 1 05/06/2023 10/13/2023 Discontinued (Dose adjustment) Start: 02-18-2023 End: 02-19-2023 take 50 mg by mouth once daily 50 mg, Oral, Daily, Fir st dose on 02/18/23 at 0900 DO NOT CRUSH OR CHEW. Start: 09-19-2022 take 1 tablet by eduardo th in the morning metoprolol tartrate (Lopressor) 50 MG tablet Take 50 mg by mouth in the morning and 50 mg in the evening. Take with meals. 09/19/2022 Active Start: 09-15-2022 End: 09-15-2022 Metoprolol tartrate 25 mg Ta b 25 mg = 1 tab(s), Tab, Oral, Start date 09/15/22 9:00:00 EDT, 09/12/22 17:37:00 EDT Start Date: 09/15/22 Stop Date: 09/15/22 Status: Completed Start: 06-03-2020 End: 06-05-2020 take 12.5 mg by mouth twice daily 12.5 mg, Oral, 2 times daily, First dose on 06/03/20 at 2330 Start: 01-29-2019 End: 08-20-2022 take 50 mg by mouth once daily Metoprolol Succinate Di scontinued 50 MG PO Daily 0 January 29, 2019 12:00am August 20, 2022 3:13am Start: 07-23-2018 End: 01-18-2024 take 1 tablet by mouth twice daily Metoprolol tartrate 25 mg Tab 25 mg = 1 tab(s), Oral, BID, # 60 tab(s), Refills(s) 0 Start Date: 09/12/22 Status: Ordered Start: 08-22-2012 End: 08-29-2024 Metoprolol Tartrate 25 MG ta blet Discontinued 12.5 MG PO TWO TIMES DAILY August 22, 2012 12:00am August 29, 2024 1:56pm metoprolol tartr ate (Lopressor) 25 MG tablet every 12 (twelve) hours. Active End: 02-20-2023 take 1 tablet by mouth every twenty-four hours metoprolol succinate (TOPROL-XL) 50 MG 24 hr tablet Take by mouth . 0 02/20/2023 Discontinued (Reorder (Suppress CancelRx Message to Pharmacy)) take 1 tablet by eduardo th every twenty-four hours Toprol XL 25 MG 1 tablet Orally Once a day Active take 1 tablet by eduardo th once daily metoprolol (LOPRESSOR) 25 MG tablet Take 25 mg by mouth daily 0 Active miscellaneous medical supply Misc (20 sources) Start: 12-10-2023 miscellaneous medical supply Misc 1 each by Miscellaneous route daily . 100 each 2 12/10/2023 Start: 12-10-2023 miscellaneous medical supply Misc 1 each by Miscellaneous route daily . 100 each 2 12/10/2023 Suspended Start: 12-10-2023 miscellaneous medical supply Misc 1 each by Miscellaneous route daily . 100 each 2 12/10/2023 Active nitrofurantoin, macrocrystals 100 mg oral capsule (1 source) Nitrofuran Antibacterial Start: 10-30-2021 End: 11-04-2021 take 1 capsule by mouth twice daily at mealtime Macrobid 100 mg Cap 100 mg = 1 cap(s), Oral, BID, with food, X 5 day(s), # 10 cap(s), Refills(s) 0, Pharmacy: [facility], 158, cm, 10/30/21 13:11:00 EDT, Height/Length Dosing, 113.7, kg, 10/30/21 13:11:00 EDT, Weight Dosing Start Date: 10/30/21 Stop Date: 11/04/21 Status: Ordered nitrofurantoin, macrocrystals 25 mg / nitrofurantoin, monohydrate 75 mg oral capsule (2 sources) Nitrofuran Antibacterial Start: 06-18-2023 End: 06-25-2023 take 1 capsule by mouth twice daily nitrofurantoin, macrocrystal-monoh ydrate, (MACROBID) 100 MG capsule Take 1 (one) capsule (100 mg total) by mouth 2 (two) times a day for 7 days . 14 capsule 0 06/18/2023 06/25/2023 Active nortriptyline 25 mg oral capsule (20 sources) Tricyclic Antidepressant Start: 06-22-2023 End: 08-02-2024 take 1 capsule by mouth once daily nortriptyline (PAMELOR) 25 MG capsule Indications: Chronic nonintractable headache, unspecified headache type , Insomnia, unspecified type Take 1 (one) capsule (25 mg total) by mouth nightly . 90 capsule 1 08/02/2024 Active Start: 07-23-2018 End: 09-07-2018 take 1 capsule by mouth once daily Nortriptyline (Pamelor) 50 mg Capsule Discontinued 50 MG PO Daily July 23, 2018 1:00am September 07, 2018 2:57pm ofloxacin 3 mg/ml ophthalmic solution (3 sources) Quinolone Antimicrobial Start: 10-15-2022 take 1 drop(s) into the eye(s) four times daily ofloxacin (Ocuflox) 0.3 % ophthalmic solution INSTILL 1 DROP INTO LEFT EYE FOUR TIMES A DAY 10/15/2022 Active omeprazole 40 mg delayed release oral capsule (20 sources) Proton Pump Inhibitor Start: 07-15-2024 take 1 capsule by mouth once daily omeprazole (PRILOSEC) 40 MG capsule Take 1 (one) capsule (40 mg total) by mouth daily . 90 capsule 1 07/15/2024 Active Start: 09-30-2021 End: 12-29-2021 take 1 capsule by mouth once daily omeprazole 40 mg Cap-DR 40 mg = 1 cap(s), Oral, Daily, X 90 day(s), # 90 cap(s), Refills(s) 0, Pharmacy: [facility], 158, cm, 09/30/21 14:00:00 EDT, Height/Length Dosing, 112.8, kg, 09/30/21 14:00:00 EDT, Weight Dosing Start Date: 09/30/21 Stop Date: 12/29/21 Status: Ordered Start: 07-23-2018 take 40 mg by mouth once daily Omeprazole Magnesium [Prilosec] 40 MG Oral Daily July 23, 2018 Active Start: 07-23-2018 take 40 mg by mouth once daily Omeprazole Magnesium (Prilosec) 10 mg Susp,Delayed Release For Recon Active 40 MG PO Daily July 23, 2018 1:00am Start: 07-23-2018 take 40 mg by mouth twice mike y Omeprazole Magnesium (Prilosec) 10 mg Susp,Delayed Release For Recon Active 40 MG PO Twice daily July 23, 2018 1:00am Start: 08-22-2012 End: 08-29-2024 take 1 capsule by mouth twice daily omeprazole (PRILOSEC) 40 MG capsule Take 1 (one) capsule (40 mg total) by mouth 2 (two) times a day . 60 capsule 0 03/30/2023 05/06/2023 Discontinued (Therapy completed) take 2 capsules by m outh once daily omeprazole (PRILOSEC) [address] Indications: A-fib , Syncope Take 40 mg by mouth daily. Active omeprazole 40 mg Cap-DR (7 sources) Start: 09-30-2021 End: 12-29-2021 take 1 capsule by mouth once daily omeprazole 40 mg Cap-DR 40 mg = 1 cap(s), Oral, Daily, X 90 day(s), # 90 cap(s), Refills(s) 0, Pharmacy: [facility], 158, cm, 09/30/21 14:00:00 EDT, Height/Length Dosing, 112.8, kg, 09/30/21 14:00:00 EDT, Weight Dosing Start Date: 09/30/21 Stop Date: 12/29/21 Status: Ordered Start: 10-20-2017 omeprazole 40 mg Cap-DR 40 mg = 1 cap(s), Oral, Daily, Control of stomach acid Start Date: 10/20/17 Status: Ordered Omnipod 5 G6 Pods, Gen 5, Cr tg (20 sources) Start: 01-29-2024 Omnipod 5 G6 P ods, Gen 5, Crtg 01/29/2024 Start: 01-29-2024 Omnipod 5 G6 P ods, Gen 5, Crtg 01/29/2024 Suspended Start: 01-29-2024 Omnipod 5 G6 P ods, Gen 5, Crtg 01/29/2024 Active Omnipod 5 G6-G7 Pods, Gen 5, Crtg (14 sources) Start: 06-01-2024 Omnipod 5 G6-G 7 Pods, Gen 5, Crtg 06/01/2024 Active Omnipod Insulin Refill Crtg (20 sources) Start: 04-16-2020 Omnipod Insuli n Refill Crtg 04/16/2020 Start: 04-16-2020 Omnipod Insuli n Refill Crtg 04/16/2020 Suspended Start: 04-16-2020 Omnipod Insuli n Refill Crtg 04/16/2020 Active Start: 04-16-2020 Omnipod Insuli n Refill Crtg ondansetron 4 mg disintegrating oral tablet (20 sources) Serotonin-3 Receptor Antagonist Start: 04-27-2024 End: 04-29-2024 take 4 mg intravenously every six hours as needed for nausea and vomiting 4 mg, Intravenous, Every 6 hours PRN, nausea, vomiting, Starting on Thu04/27/24 at 0109 Start: 03-25-2024 End: 04-04-2024 take 4 mg intravenously every six hours as needed for nausea and vomiting Start: 06-18-2023 End: 08-02-2024 take 1 tablet by mouth every eight hours as needed for nausea ondansetron (ZOFRAN-ODT) 4 MG disintegrating tablet Dissolve 1 (one) tablet (4 mg total) on top of tongue every 8 (eight) hours as needed for nausea . 20 tablet 05/26/2024 Active Start: 04-28-2023 End: 05-06-2023 take 1 tablet by mouth every six hours as needed for nausea ondansetron (ZOFRAN) 4 MG tablet Take 1 (one) tablet (4 mg total) by mouth every 6 (six) hours as needed for nausea . 20 tablet 0 04/28/2023 05/06/2023 Discontinued (Therapy completed) Start: 03-29-2023 End: 03-29-2023 ondansetron (ZOFRAN) injecti on 4 mg Start: 01-25-2023 End: 02-20-2023 take 1 tablet by mouth every eight hours as needed for nausea ondansetron (ZOFRAN-ODT) 4 MG disintegrating tablet Dissolve 1 (one) tablet (4 mg total) on top of tongue every 8 (eight) hours as needed for nausea . 20 tablet 0 01/25/2023 02/20/2023 Discontinued (Stop Taking at Discharge) Start: 10-07-2022 End: 10-07-2022 ondansetron (ZOFRAN) 4 MG/2M L injection Start: 04-12-2019 take 1 tablet by eduardo th every twenty-four hours Zofran 4 MG 1 tablet Orally Once a day for 30 day(s) Mar, Active Start: 11-23-2018 take 1 tablet by eduardo th every eight hours as needed for nausea Zofran 4 mg Tab 4 mg = 1 tab(s), Oral, q8hr, PRN Nausea/Vomiting, # 6 tab(s), Refills(s) 0, Pharmacy: [facility] [id number] Start Date: 11/23/18 Status: Ordered Start: 07-23-2018 End: 09-07-2018 take 4 mg by mouth four times daily Ondansetron Discontinued 4 MG PO Four times daily July 23, 2018 1:00am September 07, 2018 2:58pm Start: 07-06-2014 End: 02-22-2015 take 2 tablets by mouth every eight hours as needed for nausea Ondansetron Hcl (Zofran) 4 MG tablet Discontinued 8 MG PO Q8H as needed for Nausea / Vomiting July 06, 2014 2:53pm February 22, 2015 7:34pm 24 hr paliperidone 6 mg extended release oral tablet (11 sources) Atypical Antipsychotic Start: 07-27-2024 take 1 tablet by mouth once daily paliperidone (INVEGA) 6 MG 24 hr tablet Take 1 (one) tablet (6 mg total) by mouth daily . 07/27/2024 Active pantoprazole 40 mg delayed release oral tablet (20 sources) Proton Pump Inhibitor Start: 07-31-2023 End: 08-02-2024 take 1 tablet by mouth once daily pantoprazole (PROTONIX) 40 MG tablet Indications: Gastroesophageal reflux disease, unspecified whether esophagitis present Take 1 (one) tablet (40 mg total) by mouth daily . 90 tablet 1 08/02/2024 Active Start: 04-09-2023 End: 05-15-2023 take 1 tablet by mouth once daily pantoprazole (PROTONIX) 40 MG tablet Indications: Gastroesophageal reflux disease, unspecified whether esophagitis present Take 1 (one) tablet (40 mg total) by mouth daily . 90 tablet 1 05/15/2023 Active Start: 03-30-2023 End: 03-30-2023 pantoprazole (PROTONIX) EC t ablet 40 mg Start: 02-18-2023 End: 02-20-2023 take 40 mg by mouth once daily before breakfast 40 mg, Oral, Every morning before breakfast, First dose on 02/18/23 at 0730 DO NOT CRUSH OR CHEW. Start: 04-07-2022 take 1 tablet by eduardo th once daily pantoprazole 40 mg Oral EC Tab 40 mg = 1 tab(s), Oral, Daily, # 30 tab(s), Refills(s) 0 Start Date: 04/07/22 Status: Ordered Start: 04-07-2022 take 1 tablet by eduardo th once daily pantoprazole 40 mg Oral EC Tab 40 mg = 1 tab(s), Oral, Daily, # 30 tab(s), Refills(s) 0 Start Date: 04/07/22 Status: Ordered Start: 06-03-2020 End: 06-05-2020 take 40 mg by mouth twice daily 40 mg, Oral, 2 times daily, First dose on 06/03/20 at 2100 DO NOT CRUSH OR CHEW. take 1 dose by mouth once daily before breakfast pantoprazole Sodium 40 MG Pack Take 1 packet by mouth every morning before breakfast. Active Pen [place] 5/16 (2 sources) Start: 03-06-2018 Pen [place] 5/ 16 as directed twice daily Feb, Active petrolatum 0.57 mg/mg / zinc oxide 0.17 mg/mg paste (11 sources) Start: 08-02-2024 zinc oxide-whi te petrolatum 17-57 % Pste Apply 1 Application topically daily . 113 g 2 08/02/2024 Active polyethylene glycol 3350 80134 mg powder for oral solution (20 sources) Osmotic Laxative Start: 08-29-2024 Polyethylene Glycol 3350 17 gram powder in packet Active GM August 29, 2024 12:00am Start: 08-02-2024 polyethylene g lycol (MIRALAX) 17 gram powder Take 17 (seventeen) g by mouth daily as needed (constipation) . 100 packet 1 08/02/2024 Active Start: 02-11-2024 End: 03-22-2024 polyethylene glycol (GLYCOLA X) 17 gram/dose powder Take 17 (seventeen) g by mouth daily . 510 g 2 02/11/2024 03/22/2024 Discontinued (Therapy completed) Start: 10-13-2023 End: 02-11-2024 polyethylene glycol (GLYCOLA X) 17 gram/dose powder Take 17 (seventeen) g by mouth daily as needed (constipation) . 238 g 1 02/11/2024 02/11/2024 Discontinued (Duplicate order (Suppress CancelRx Message to Pharmacy)) Start: 11-11-2021 MiraLax oral p owder for reconstitution 17 gram, Oral, Daily, 255 gram, Refill(s) 0, dissolve in water before taking, [id number], 158, cm, 11/04/21 11:29:00 EDT, Height/Length Dosing, 113, kg, 11/04/21 11:29:00 EDT, Weight Dosing Start Date: 11/11/21 Status: Ordered Start: 09-07-2018 End: 03-24-2019 Polyethylene Glycol 3350 (Mi ralax) 17 gram/dose Powder Discontinued 17 GM PO Daily September 07, 2018 12:00am March 24, 2019 8:33am prednisoLONE acetate 10 mg/ml ophthalmic suspension (3 sources) Corticosteroid Start: 10-15-2022 take 1 drop(s) into the eye(s) four times daily prednisoLONE acetate (Pred-Forte) 1 % ophthalmic suspension INSTILL 1 DROP INTO LEFT EYE FOUR TIMES A DAY 10/15/2022 Active predniSONE 20 mg oral tablet (1 source) Start: 10-09-2021 End: 10-14-2021 take 3 tablets by mouth once daily predniSONE 20 mg Tab 60 mg = 3 tab(s), Oral, Daily, X 5 day(s), # 15 tab(s), Refills(s) 0, Pharmacy: [id number], 158, cm, 10/09/21 15:33:00 EDT, Height/Length Dosing, 112.8, kg, 10/09/21 15:33:00 EDT, Weight Dosing Start Date: 10/09/21 Stop Date: 10/14/21 Status: Ordered pregabalin 75 mg oral capsule (20 sources) Start: 07-14-2024 End: 10-23-2024 take 1 capsule by mouth twice daily pregabalin (LYRICA) 75 MG capsule Indications: DDD (degenerative disc disease), lumbar , Lumbar radiculopathy Take 1 (one) capsule (75 mg total) by mouth 2 (two) times a day (Days supply per fill: 30) . 60 capsule 09/23/2024 10/23/2024 Active Start: 01-13-2024 End: 07-12-2024 take 1 capsule by mouth twice daily pregabalin (LYRICA) 75 MG capsule Indications: DDD (degenerative disc disease), lumbar , Lumbar radiculopathy Take 1 (one) capsule (75 mg total) by mouth 2 (two) times a day (Days supply per fill: 30) Start: 06/12/24. 60 capsule 06/12/2024 07/12/2024 Discontinued (Reorder (Suppress CancelRx Message to Pharmacy)) Start: 01-12-2024 End: 01-18-2024 take 150 mg by mouth once daily 150 mg, Oral, Nightly, First dose on Thu01/12/24 at 2300 Start: 12-08-2023 End: 01-11-2024 take 1 capsule by mouth twice daily pregabalin (LYRICA) 75 MG capsule Indications: DDD (degenerative disc disease), lumbar , Lumbar radiculopathy Take 1 (one) capsule (75 mg total) by mouth 2 (two) times a day (Days supply per fill: 30) . 60 capsule 12/08/2023 01/11/2024 Discontinued (Reorder (Suppress CancelRx Message to Pharmacy)) Start: 03-29-2023 End: 03-30-2023 take 75 mg by mouth twice daily 75 mg, Oral, 2 times d aily, First dose on Thu03/29/23 at 2100 Start: 02-20-2023 End: 05-06-2023 take 3 capsules by mouth twice daily pregabalin (LYRICA) 25 MG capsule Indications: Seizure (HCC) Take 3 (three) capsules (75 mg total) by mouth 2 (two) times a day for 10 days . 60 capsule 0 02/20/2023 05/06/2023 Discontinued (Therapy completed) Start: 02-19-2023 End: 02-20-2023 pregabalin (LYRICA) capsule 25 mg Start: 04-08-2022 End: 02-20-2023 take 75 mg by mouth twice daily 75 mg, Oral, 2 times d aily, First dose on Thu02/18/23 at 0400 Start: 06-04-2020 End: 06-05-2020 pregabalin (LYRICA) capsule 150 mg Start: 08-04-2019 take 150 mg by mouth at bedtim e Pregabalin Active 150 MG PO Bedtime August 04, 2019 12:00am Start: 01-29-2019 take 100 mg by mouth at bedtim e Pregabalin [Lyrica] 100 MG Oral Bedtime 0 January 29, 2019 Active Start: 01-29-2019 End: 08-04-2019 Pregabalin (Lyrica) 300 mg C apsule Discontinued 100 MG PO Bedtime 0 January 29, 2019 11:26am August 04, 2019 6:25pm Start: 09-07-2018 End: 01-29-2019 take 1 capsule by mouth at bedtime Pregabalin (Lyrica) 300 mg Capsule Discontinued 300 MG PO Bedtime 0 September 09, 2018 12:54pm January 29, 2019 11:28am Start: 07-23-2018 End: 09-07-2018 take 150 mg by mouth once daily Pregabalin 150 MG Oral Daily July 23, 2018 Discontinued Start: 07-23-2018 End: 09-07-2018 Pregabalin (Lyrica) 200 mg c apsule Discontinued 150 MG PO Daily July 23, 2018 1:00am September 07, 2018 2:58pm Start: 06-15-2015 End: 08-29-2024 take 2 capsules by mouth three times daily Pregabalin (Lyrica =) 50 MG capsule Discontinued 100 MG PO THREE TIMES DAILY June 15, 2015 1:00am August 29, 2024 1:56pm take 1 capsule by mo [facility] in the morning pregabalin (Lyrica) 100 MG capsule Take 100 mg by mouth in the morning and 100 mg before bedtime. Active vitamin with Ca-Iron-FA 27-1 mg Tab (20 sources) take 1 tablet by eduardo th once daily vitamin with Ca-Iron-FA 27-1 mg Tab Take 1 (one) tablet by mouth daily . take 1 tablet by mouth once mike y vitamin with Ca-Iron-FA 27-1 mg Tab Take 1 (one) tablet by mouth daily . Suspended take 1 tablet by mouth once mike y vitamin with Ca-Iron-FA 27-1 mg Tab Take 1 (one) tablet by mouth daily . Active QUEtiapine 400 mg oral tablet (20 sources) Atypical Antipsychotic Start: 04-07-2025 Quetiap ine 400 mg tablet Active MG TABLET August 29, 2024 12:00am Start: 04-27-2024 End: 04-29-2024 take 800 mg by mouth once daily 800 mg, Oral, Nightly, First dose (after last modification) on Thu04/27/24 at 0200, May cause QT interval prolongation. Start: 03-25-2024 End: 04-04-2024 Start: 01-12-2024 End: 01-18-2024 take 800 mg by mouth once daily 800 mg, Oral, Nightly, First dose on Thu01/12/24 at 2300, May cause QT interval prolongation. Start: 05-06-2023 End: 08-03-2023 take 1 tablet by mouth once daily QUEtiapine (SEROQUEL) 200 MG tablet Indications: Bipolar 1 disorder (HCC) , Insomnia, unspecified type Take 1 (one) tablet (200 mg total) by mouth nightly . 30 tablet 2 05/06/2023 08/03/2023 Discontinued (Dose adjustment) Start: 03-29-2023 End: 03-30-2023 take 400 mg by mouth once daily 400 mg, Oral, Nightly, First dose on Thu03/29/23 at 2100 May cause QT interval prolongation. Start: 02-20-2023 End: 08-03-2023 take 1 tablet by mouth once daily QUEtiapine (SEROQUEL) 400 MG tablet Indications: Bipolar 1 disorder (HCC) , Insomnia, unspecified type Take 1 (one) tablet (400 mg total) by mouth nightly . 30 tablet 2 05/06/2023 08/03/2023 Discontinued (Reorder (Suppress CancelRx Message to Pharmacy)) Start: 02-19-2023 End: 02-20-2023 QUEtiapine (SEROQUEL) tablet 200 mg Start: 02-18-2023 End: 02-19-2023 take 800 mg by mouth once daily 800 mg, Oral, Nightly, First dose on Thu02/18/23 at 0400 May cause QT interval prolongation. Start: 10-06-2022 End: 10-07-2022 QUEtiapine (SEROQUEL) tablet Start: 02-21-2022 End: 02-25-2022 take 2 tablets by mouth once daily in the evening SEROquel XR 400 mg Tab-ER 800 mg = 2 tab(s), Oral, qPM, X 4 day(s), # 8 tab(s), Refills(s) 0, Pharmacy: [facility], 157, cm, 02/21/22 14:56:00 EDT, Height/Length Dosing, 115, kg, 02/21/22 14:56:00 EDT, Weight Dosing Start Date: 02/21/22 Stop Date: 02/25/22 Status: Ordered Start: 06-04-2020 End: 06-05-2020 take 800 mg by mouth once daily 800 mg, Oral, Nightly, First dose on 06/04/20 at 2100 May cause QT interval prolongation. Start: 05-12-2020 End: 05-27-2024 take 2 tablets by mouth once daily QUEtiapine (SEROQUEL) 400 MG tablet Indications: Bipolar 1 disorder (HCC) , Insomnia, unspecified type Take 2 (two) tablets (800 mg total) by mouth nightly . 60 tablet 05/27/2024 Active Start: 08-04-2019 take 800 mg by mouth at bedtim e Quetiapine Active 800 MG PO Bedtime August 04, 2019 12:00am Start: 01-29-2019 End: 08-04-2019 take 50 mg by mouth once daily at bedtime Quetiapine Discontinued 50 MG PO Daily at bedtime 0 January 29, 2019 12:00am August 04, 2019 8:20pm Start: 07-23-2018 End: 01-29-2019 take 600 mg by mouth at bedtime Quetiapine Discontinue d 600 MG PO Bedtime July 23, 2018 1:00am January 29, 2019 11:28am Start: 10-20-2017 take 2 tablets by mo [facility] once daily at bedtime quetiapine 300 mg oral tablet 600 mg = 2 tab(s), Oral, Once a day (at bedtime), Sleep Start Date: 10/20/17 Status: Ordered Start: 01-21-2017 QUEtiapine 50 MG Tab Indications: Atrial fibrillation, unspecified type , SSS (sick sinus syndrome) take 1 tablet by mouth at bedtime.. 30 tablet 01/21/2017 Active take 1 tablet by eduardo once daily QUEtiapine (SEROQUEL XR) 50 MG extended release tablet Take 50 mg by mouth nightly 0 Active take 1 tablet by eduardo th every twenty-four hours QUEtiapine Fumarate 300 MG 1 tablet Orally Once a day for 30 day(s) Active saccharomyces boulardii 250 mg oral capsule (7 sources) Start: 08-22-2022 take 1 capsule by mouth in the morning Florastor 250 MG capsule Take 250 mg by mouth in the morning and 250 mg in the evening. Take with meals. 08/24/2022 Active [employer] - (2 sources) Start: 05-19-2018 [employer] - as directed for insulin pen needles/lancets/syr inges as directed QID please fill with 4 qt or 5 qt container Apr, Active terconazole 8 mg/ml vaginal cream (3 sources) Azole Antifungal Start: 09-24-2022 terconazole (Terazol 3) 0.8 % vaginal cream INSERT ONE APPLICATORFUL VIA VAGINAL ROUTE ONCE DAILY AT BEDTIME FOR 3 DAYS 09/24/2022 Active 12 hr timolol 5 mg/ml ophthalmic solution (20 sources) beta-Adrenergic Kathia Start: 12-15-2023 End: 04-29-2024 take 1 drop(s) into the eye(s) once daily timolol (TIMOPTIC) 0.5 % ophthalmic solution Administer 1 (one) drop into the left eye daily . 12/15/2023 Active tiZANidine 4 mg oral tablet (20 sources) Central alpha-2 Adrenergic Agonist Start: 08-29-2024 Tizanidine 4 mg tablet Active MG TABLET August 29, 2024 12:00am Start: 07-14-2024 End: 09-23-2024 take 2 tablets by mouth once daily tiZANidine (Zanaflex) 4 MG tablet Indications: DDD (degenerative disc disease), lumbar Take 2 tabs p.o. nightly . 60 tablet 3 09/23/2024 Active Start: 06-12-2024 End: 07-12-2024 take 2 tablets by mouth once daily tiZANidine (Zanaflex) 4 MG tablet Indications: DDD (degenerative disc disease), lumbar Take 2 tabs p.o. nightly Start: 06/12/24. 60 tablet 06/12/2024 07/12/2024 Discontinued (Reorder (Suppress CancelRx Message to Pharmacy)) Start: 04-27-2024 End: 04-29-2024 take 4 mg by mouth once daily 4 mg, Oral, Nightly, [facility] dose (after last modification) on Thu04/27/24 at 0200 Start: 02-04-2024 End: 06-10-2024 take 2 tablets by mouth once daily tiZANidine (Zanaflex) 4 MG tablet Indications: DDD (degenerative disc disease), lumbar Take 2 tabs p.o. nightly . 60 tablet 05/13/2024 06/10/2024 Discontinued (Reorder (Suppress CancelRx Message to Pharmacy)) Start: 02-03-2024 End: 02-04-2024 tiZANidine (Zanaflex) 4 MG t ablet Indications: DDD (degenerative disc disease), lumbar Take 1 (one) capsule (4 mg total) by mouth See Admin Instructions Take 2 tabs p.o. nightly . - Oral . 60 tablet 02/03/2024 02/04/2024 Discontinued (Reorder (Suppress CancelRx Message to Pharmacy)) Start: 02-02-2024 End: 03-09-2024 tiZANidine (ZANAFLEX) 4 MG c apsule Indications: DDD (degenerative disc disease), lumbar , Lumbar radiculopathy Take 1 (one) capsule (4 mg total) by mouth See Admin Instructions Take 2 tabs p.o. nightly . 60 capsule 3 03/09/2024 03/09/2024 Discontinued Start: 01-13-2024 take 2 tablets by mo uth once daily tiZANidine (ZANAFLEX) 4 MG tablet Indications: Muscle spasms of both lower extremities Take 2 tabs p.o. nightly . 60 tablet 01/13/2024 Active Start: 01-12-2024 End: 01-18-2024 take 8 mg by mouth once daily 8 mg, Oral, Nightly, [facility] dose on Thu01/12/24 at 2300 Start: 12-12-2023 End: 01-11-2024 take 2 tablets by mouth once daily tiZANidine (ZANAFLEX) 4 MG tablet Indications: Muscle spasms of both lower extremities Take 2 tabs p.o. nightly Start: 12/12/23. 60 tablet 12/12/2023 01/11/2024 Discontinued (Reorder (Suppress CancelRx Message to Pharmacy)) Start: 12-12-2023 take 2 tablets by mo uth once daily tiZANidine (ZANAFLEX) 4 MG tablet Indications: Muscle spasms of both lower extremities Take 2 tabs p.o. nightly Start: 12/12/23. 60 tablet 12/12/2023 Active Start: 12-12-2023 take 2 tablets by mo uth once daily tiZANidine (ZANAFLEX) 4 MG tablet Indications: Muscle spasms of both lower extremities Take 2 tabs p.o. nightly Start: 12/12/23. 60 tablet 12/12/2023 Active Start: 07-01-2023 End: 12-08-2023 take 1 tablet by mouth twice daily as needed for muscle spasms tiZANidine (ZANAFLEX) 4 MG tablet Indications: Muscle spasms of both lower extremities Take 1 (one) tablet (4 mg total) by mouth 2 (two) times a day as needed for muscle spasms . 60 tablet 10/06/2023 11/12/2023 Discontinued (Reorder (Suppress CancelRx Message to Pharmacy)) Start: 05-06-2023 End: 08-11-2023 take 1 capsule by mouth twice daily as needed for muscle spasms tiZANidine (ZANAFLEX) 4 MG capsule Indications: Muscle spasms of both lower extremities Take 1 (one) capsule (4 mg total) by mouth 2 (two) times a day as needed for muscle spasms (muscle spasms) . 60 capsule 0 08/10/2023 08/11/2023 Discontinued (Cost of medication) Start: 04-30-2023 End: 05-06-2023 take 1 capsule by mouth once daily tiZANidine (ZANAFLEX) 2 MG capsule Take 1 (one) capsule (2 mg total) by mouth nightly for 7 days . 7 capsule 0 04/30/2023 05/06/2023 Discontinued (Therapy completed) Start: 02-18-2023 End: 02-19-2023 take 12 mg by mouth once daily 12 mg, Oral, Nightly, F irst dose on Thu02/18/23 at 2300 Start: 10-06-2022 End: 10-07-2022 tizanidine (ZANAFLEX) tablet Start: 09-12-2022 End: 02-20-2023 take 2 capsules by mouth at bedtime tiZANidine (Zanaflex) 6 MG capsule TAKE 2 CAPSULES BY MOUTH AT BEDTIME DIRECTED 09/23/2022 Active Start: 09-12-2022 take 12 mg by mouth at bedtime Tizanidine Active 12 MG PO Bedtime September 12, 2022 12:00am Start: 08-20-2022 End: 09-12-2022 take 4 mg by mouth three times daily Tizanidine Discontinued 4 MG PO Three times daily August 20, 2022 12:00am September 12, 2022 7:07am Start: 12-29-2021 take 3 tablets by mo uth once daily at bedtime Zanaflex 4 mg Tab 12 mg = 3 tab(s), Oral, Once a day (at bedtime), # 30 tab(s), Refills(s) 1, Pharmacy: [facility], 157, cm, 12/12/21 16:54:00 EDT, Height/Length Dosing, 114.8, kg, 12/12/21 16:54:00 EDT, Weight Dosing Start Date: 12/29/21 Status: Ordered Start: 12-12-2021 take 3 tablets by mo uth once daily at bedtime Zanaflex 4 mg Tab 12 mg = 3 tab(s), Oral, Once a day (at bedtime), # 30 tab(s), Refills(s) 1, Pharmacy: [facility], 157, cm, 12/12/21 16:54:00 EDT, Height/Length Dosing, 114.8, kg, 12/12/21 16:54:00 EDT, Weight Dosing Start Date: 12/12/21 Status: Ordered Start: 10-28-2021 take 3 tablets by mo uth once daily at bedtime Zanaflex 4 mg Tab 12 mg = 3 tab(s), Oral, Once a day (at bedtime), # 30 tab(s), Refills(s) 0, Pharmacy: [facility], 158, cm, 10/09/21 15:33:00 EDT, Height/Length Dosing, 112.8, kg, 10/09/21 15:33:00 EDT, Weight Dosing Start Date: 10/28/21 Status: Ordered Start: 09-30-2021 take 3 tablets by mo uth once daily at bedtime Zanaflex 4 mg Tab 12 mg = 3 tab(s), Oral, Once a day (at bedtime), # 30 tab(s), Refills(s) 0, Pharmacy: [facility], 158, cm, 09/30/21 14:00:00 EDT, Height/Length Dosing, 112.8, kg, 09/30/21 14:00:00 EDT, Weight Dosing Start Date: 09/30/21 Status: Ordered Start: 07-31-2021 take 3 tablets by [facility] once daily at bedtime Zanaflex 4 mg Tab 12 mg = 3 tab(s), Oral, Once a day (at bedtime), # 30 tab(s), Refills(s) 0, Pharmacy: [facility], 157.5, cm, 07/29/21 14:55:00 EST, Height/Length Dosing, 110.1, kg, 07/29/21 14:55:00 EST, Weight Dosing Start Date: 07/31/21 Status: Ordered Start: 05-09-2020 End: 02-17-2023 tiZANidine (ZANAFLEX) 2 MG t ablet Start: 01-22-2019 End: 01-29-2019 take 12 mg by mouth three times daily Tizanidine Discontinued 12 MG PO Three times daily January 22, 2019 3:40pm January 29, 2019 11:28am Start: 09-07-2018 End: 01-22-2019 take 6 mg by mouth three times daily Tizanidine Discontinued 6 MG PO Three times daily 60 30 September 09, 2018 12:00am January 22, 2019 3:41pm Start: 09-07-2018 End: 09-09-2018 Tizanidine (Zanaflex) 4 mg T ablet Discontinued 6 MG PO Three times daily September 07, 2018 12:00am September 09, 2018 1:12pm Start: 07-23-2018 End: 09-07-2018 take 8 mg by mouth at bedtime Tizanidine Discontinued 8 MG PO Bedtime July 23, 2018 1:00am September 07, 2018 2:59pm Start: 08-22-2012 End: 07-06-2014 take 1 tablet by mouth three times daily Tizanidine (Zanaflex) 4 MG tablet Discontinued 4 MG PO THREE TIMES DAILY August 22, 2012 12:00am July 06, 2014 12:45pm End: 02-17-2023 take 1 capsule by mouth three times daily as needed for pain tiZANidine (ZANAFLEX) 4 MG capsule Take 1 (one) capsule (4 mg total) by mouth 3 (three) times a day as needed for muscle spasms USES FOR BACK PAIN . 0 02/17/2023 Discontinued take 2 tablets by [facility] three times daily as needed for muscle spasms Zanaflex 4 MG 2 tablet Orally Three times a day as needed for muscle spasm for 30 days Active End: 06-26-2017 take 1 tablet by mouth once daily tiZANidine (ZANAFLEX) 4 MG tablet Take 4 mg by mouth nightly 0 Active traZODone hydrochloride 100 mg oral tablet (20 sources) Serotonin Reuptake Inhibitor Start: 05-31-2024 End: 08-02-2024 take 1 tablet by mouth once daily as needed for sleep traZODone (DESYREL) 100 MG tablet Indications: Insomnia, unspecified type Take 1 (one) tablet (100 mg total) by mouth nightly as needed for sleep . 90 tablet 1 08/02/2024 Active Start: 04-26-2024 End: 04-29-2024 50 mg, Oral, Nightly PRN, sl eep, Starting on 04/26/24 at 2343, May repeat times 1 in 30 minutes if still awake. Start: 10-30-2023 End: 04-04-2024 take 1 tablet by mouth once daily as needed traZODone (DESYREL) 50 MG tablet Take 1 (one) tablet (50 mg total) by mouth nightly as needed . 90 tablet 02/08/2024 Active Start: 03-29-2023 End: 03-30-2023 take 50 mg by mouth once daily as needed for sleep 50 mg, Oral, Nightly PRN, sleep, Starting on 03/29/23 at 1432 To be administered 1 hour after melatonin if still awake. May repeat x 1 dose in 30 minutes if still awake. Start: 06-03-2020 End: 02-20-2023 take 50 mg by mouth once daily as needed for sleep 50 mg, Oral, Nightly PRN, sleep, Starting on Thu02/18/23 at 0028 24 hr venlafaxine 150 mg extended release oral capsule (20 sources) Serotonin and Norepinephrine Reuptake Inhibitor Start: 10-20-2017 End: 03-24-2019 take 1 capsule by mouth once daily venlafaxine 150 mg Cap-ER 150 mg = 1 cap(s), Oral, Daily, Depression Start Date: 10/20/17 Status: Ordered Start: 10-20-2017 take 1 capsule by mo [facility] once daily venlafaxine 150 mg Cap-ER 150 mg = 1 cap(s), Oral, Daily, Depression Start Date: 10/20/17 Status: Ordered zolpidem tartrate 5 mg oral tablet (5 sources) gamma-Aminobutyric Acid-ergic Agonist Start: 12-08-2021 End: 12-22-2021 take 1 tablet by mouth once daily as needed for sleep zolpidem (AMBIEN) 5 MG tablet Indications: Other insomnia Take 1 tablet by mouth nightly as needed for Sleep for up to 14 days. 7 tablet 0 12/08/2021 12/22/2021 Active Start: 06-03-2020 End: 06-05-2020 take 5 mg by mouth once daily as needed for sleep 5 mg, Oral, Nightly PRN, sleep, Starting 06/03/20 at 1750 Start: 08-22-2012 End: 07-06-2014 take 1 tablet by mouth at bedtime Zolpidem (Ambien) 10 MG tablet Discontinued 10 MG PO BEDTIME August 22, 2012 12:00am July 06, 2014 12:46pm End: 06-05-2020 take 1 tablet by mouth once daily as needed for sleep zolpidem (AMBIEN CR) 6.25 MG CR tablet Take 6.25 mg by mouth nightly as needed for sleep. 0 06/05/2020 Discontinued (Stop Taking at Discharge) (2 sources) Start: 04-16-2020 (2 sources) Start: 12-03-2023 (2 sources) Start: 12-03-2023 (2 sources) Start: 12-03-2023 (2 sources) Start: 12-08-2023 End: 06-05-2024 (2 sources) Start: 12-08-2023 (2 sources) Start: 12-10-2023 (2 sources) Start: 01-29-2024 (2 sources) Start: 03-10-2024 End: 03-10-2025 (2 sources) Completed/Discontinued Medications Medication Drug Class(es) Dates Sig (Normalized) Sig (Original) acetaminophen 325 mg oral tablet (3 sources) Start: 03-29-2023 End: 03-30-2023 take 1 tablet by mouth every six hours as needed for pain and headache 650 mg, Oral, Every 6 hours PRN, mild pain, fever 100.4 F or greater, headaches, Starting on 03/29/23 at 1432 Start: 12-08-2021 End: 12-08-2021 acetaminophen (TYLENOL) tabl et 1,000 mg Start: 06-03-2020 End: 06-05-2020 take 1 tablet by mouth every four hours as needed 650 mg, Oral, Every 4 hours PRN, mild pain, fever 100.4 F or greater, headaches, Starting 06/03/20 at 1750 acetaminophen 325 mg / HYDROcodone bitartrate 5 mg oral tablet (4 sources) Opioid Agonist Start: 01-25-2023 End: 02-17-2023 take 1 tablet by mouth every six hours as needed for pain HYDROcodone-acetaminophen (NORCO) 5-325 mg per tablet Indications: Pain of right lower extremity , Injury of right knee, subsequent encounter Take 1 (one) tablet by mouth every 6 (six) hours as needed for pain . 14 tablet 0 01/25/2023 02/17/2023 Discontinued Start: 06-26-2017 End: 06-26-2017 take 1 tablet by mouth once, then take 1 tablet by mouth HYDROcodone-acetaminophen (NORCO) 5-325 mg per tablet 1 tablet 1 tablet, Oral, Once, Thu06/26/17 at 2200, For 1 dose Given 06/26/2017 22:14 EST 1 tablet aluminum hydroxide 40 mg/ml / magnesium hydroxide 40 mg/ml / simethicone 4 mg/ml oral suspension (2 sources) Start: 02-18-2023 End: 02-20-2023 take 30 mL by mouth every four hours as needed for gastroesophageal reflux disease 30 mL, Oral, Every 4 hours PRN, indigestion, heartburn, Starting on Thu02/18/23 at 0028 Start: 06-03-2020 End: 06-05-2020 take 30 mL by mouth every four hours as needed 30 mL, Oral, Every 4 hours PRN, indigestion, Starting 06/03/20 at 1750 amitriptyline hydrochloride 25 mg oral tablet (20 sources) Tricyclic Antidepressant Start: 08-19-2018 End: 08-20-2022 take 25 mg by mouth once daily at bedtime Amitriptyline Discontinued 25 MG PO Daily at bedtime September 07, 2018 12:00am August 20, 2022 3:10am amoxicillin 500 mg oral capsule (10 sources) Penicillin-class Antibacterial Start: 12-01-2023 End: 01-12-2024 take 1 capsule by mouth three times daily amoxicillin (AMOXIL) 500 MG capsule Indications: Upper respiratory tract infection, unspecified type Take 1 (one) capsule (500 mg total) by mouth 3 (three) times a day . 15 capsule 12/01/2023 01/12/2024 Discontinued (Therapy completed) amoxicillin 875 mg / clavulanate 125 mg oral tablet (10 sources) Penicillin-class Antibacterial Start: 07-05-2024 End: 07-15-2024 take 1 tablet by mouth once amoxicillin-clavul anate (AUGMENTIN) 875-125 mg per tablet Take 1 (one) tablet by mouth . 07/05/2024 07/15/2024 Start: 07-05-2024 End: 07-15-2024 take 1 tablet by mouth in the morning, then take 1 tablet by mouth after mealtime, then take 1 tablet by mouth twice daily amoxicillin-clavulanate (Augmentin) 875-125 MG tablet Indications: Diabetic Foot Infection Take 1 tablet (875 mg) by mouth in the morning and 1 tablet (875 mg) in the evening. Take after meals. Do all this for 10 days. Take 1 pill p.o. b.I.d. for 10 days. 20 tablet 07/05/2024 07/15/2024 Active Start: 09-19-2023 End: 09-26-2023 take 1 tablet by mouth twice daily amoxicillin-clavulanate (AUGMENTIN) 875-125 mg per tablet Take 1 (one) tablet by mouth 2 (two) times a day for 7 days . 14 tablet 0 09/19/2023 09/26/2023 Active Start: 05-04-2023 End: 05-11-2023 take 1 tablet by mouth twice daily amoxicillin-clavulanate (AUGMENTIN) 875-125 mg per tablet Take 1 (one) tablet by mouth 2 (two) times a day for 7 days . 14 tablet 0 05/04/2023 05/11/2023 Suspended Start: 08-21-2022 End: 09-12-2022 take 1 tablet by mouth every eight hours Amoxicillin-Pot Clavulanate Discontinued 1 TAB PO Q8H 30 August 21, 2022 12:00am September 12, 2022 7:00am ARIPiprazole 10 mg oral tablet (2 sources) Atypical Antipsychotic End: 06-05-2020 take 1 tablet by mouth once daily ARIPiprazole (ABILIFY) 10 MG tablet Take 10 mg by mouth daily. 0 06/05/2020 Discontinued (Stop Taking at Discharge) bisacodyl 10 mg rectal suppository (2 sources) Stimulant Laxative Start: 02-18-2023 End: 02-20-2023 take 10 mg rectal route once daily as needed for constipation 10 mg, Rectal, Daily PRN, constipation, Starting on Thu02/18/23 at 0028 Try oral medications first for constipation.&nbs p; Try rectal medication if oral meds are ineffective, not tolerated, or not ordered. Start: 06-03-2020 End: 06-05-2020 take 10 mg rectal route once daily as needed for constipation 10 mg, Rectal, Daily PRN, constipation, Starting 06/03/20 at 1750 Try oral medications first for constipation. Try rectal medication if oral meds are ineffective, not tolerated, or not ordered. Budesonide / formoterol (1 source) Corticosteroid, beta2-Adrenergic Agonist Start: 06-03-2020 End: 06-05-2020 take 2 puff(s) by inhalation twice daily 2 puff, Inhalation, 2 times daily (RT), First dose on 06/03/20 at 2000 busPIRone hydrochloride 10 mg oral tablet (20 sources) Start: 04-27-2024 End: 04-29-2024 take 30 mg by mouth twice daily 30 mg, Oral, 2 times daily, First dose (after last modification) on Thu04/27/24 at 0900 Start: 03-25-2024 End: 04-04-2024 Start: 01-12-2024 End: 01-18-2024 take 30 mg by mouth every twelve hours 30 mg, Oral, Every 12 hours scheduled, First dose on Thu01/12/24 at 2200 Start: 06-03-2020 End: 06-05-2020 busPIRone (BUSPAR) tablet 15 mg Start: 05-31-2020 End: 02-17-2023 busPIRone (BUSPAR) 30 MG tab let 1 (one) tablet (30 mg total) 2 (two) times a day Starts this when done with 15 mg doses x 1 more week . 0 05/31/2020 02/17/2023 Discontinued Start: 05-03-2020 End: 02-17-2023 busPIRone (BUSPAR) 15 MG tab let 1 (one) tablet (15 mg total) 2 (two) times a day States takes for 1 more week then goes to higher dose . 0 05/03/2020 02/17/2023 Discontinued calcium carbonate 500 mg chewable tablet (1 source) Start: 03-29-2023 End: 03-30-2023 calcium carbonate (TUMS) chewable tablet 500 mg cariprazine 6 mg oral capsule (7 sources) Atypical Antipsychotic Start: 05-31-2020 End: 02-17-2023 take 1 capsule by mouth once daily Vraylar 6 mg cap Take 1 (one) capsule (6 mg total) by mouth daily . 0 05/31/2020 02/17/2023 Discontinued Start: 05-03-2020 End: 06-04-2020 Vraylar 4.5 mg cap 4.5 mg da yoselin . 0 05/03/2020 06/04/2020 Discontinued (Dose adjustment) cefadroxil 500 mg oral capsule (2 sources) Cephalosporin Antibacterial Start: 03-30-2024 End: 04-04-2024 ceFAZolin 2000 mg injection (3 sources) Cephalosporin Antibacterial Start: 04-27-2024 End: 04-29-2024 take 2000 mg intravenously every eight hours 2,000 mg, Intravenous, at 100 mL/hr, Every 8 hours, First dose on Thu04/27/24 at 0600, Indication: Community Acquired Cellulitis Start: 06-03-2020 End: 06-05-2020 take 2000 mg intravenous route every eight hours 2,000 mg, Intravenous, at 100 mL/hr, Every 8 hours, First dose on Thu06/03/20 at 2300 Indication: Community Acquired Cellulitis Start: 06-03-2020 End: 06-03-2020 ceFAZolin (ANCEF) IVPB 1 g (premix) cefdinir 300 mg oral capsule (3 sources) Cephalosporin Antibacterial Start: 04-30-2023 End: 05-06-2023 take 1 capsule by mouth twice daily cefdinir (OMNICEF) 300 MG capsule Take 1 (one) capsule (300 mg total) by mouth 2 (two) times a day for 7 days . 14 capsule 0 04/30/2023 05/06/2023 Discontinued (Therapy completed) Start: 11-06-2021 End: 11-13-2021 take 1 capsule by mouth every twelve hours cefdinir 300 mg Cap 300 mg = 1 cap(s), Oral, q12hr, X 7 day(s), # 14 cap(s), Refills(s) 0, Pharmacy: [facility] [id number], 158, cm, 11/04/21 11:29:00 EDT, Height/Length Dosing, 113, kg, 11/04/21 11:29:00 EDT, Weight Dosing Start Date: 11/06/21 Stop Date: 11/13/21 Status: Ordered cefepime 2000 mg injection (1 source) Cephalosporin Antibacterial Start: 01-12-2024 End: 01-12-2024 2,000 mg, Intravenous, at 100 mL/hr, Once, On Thu01/12/24 at 1700, For 1 dose, Indication: Other: (specify), Indication: diabetic foot infection cephalexin 500 mg oral capsule (9 sources) Cephalosporin Antibacterial Start: 04-28-2023 End: 05-08-2023 take 1 capsule by mouth four times daily cephALEXin (KEFLEX) 500 MG capsule Take 1 (one) capsule (500 mg total) by mouth 4 (four) times a day for 10 days . 40 capsule 0 04/28/2023 05/06/2023 Discontinued (Therapy completed) Start: 08-05-2019 End: 09-22-2019 take 500 mg by mouth twice daily Cephalexin Discontinued 500 MG PO Twice daily 10 August 05, 2019 12:00am September 22, 2019 8:10am End: 06-05-2020 take 1 capsule by mouth four times daily cephALEXin (KEFLEX) 500 MG capsule Take 500 mg by mouth 4 (four) times a day . 0 06/05/2020 Discontinued (Stop Taking at Discharge) chlorhexidine gluconate 40 mg/ml medicated liquid soap (6 sources) Start: 09-07-2018 End: 03-24-2019 Chlorhexidine Gluconate (Hibiclens) 4 % Liquid Discontinued 1 APPLIC TOPICAL Twice a Week September 07, 2018 12:00am March 24, 2019 8:29am ciprofloxacin 3 mg/ml / dexamethasone 1 mg/ml otic suspension (2 sources) Corticosteroid, Quinolone Antimicrobial Start: 05-06-2023 End: 05-13-2023 ciprofloxacin-dexAM ETHasone (CIPRODEX) otic suspension Indications: Non-recurrent acute suppurative otitis media of left ear without spontaneous rupture of tympanic membrane Administer 4 (four) drops into the left ear 2 (two) times a day for 7 days . 7.5 mL 0 05/06/2023 05/13/2023 Suspended clopidogrel 75 mg oral tablet (1 source) [id number] Platelet Inhibitor Start: 02-18-2023 End: 02-20-2023 take 75 mg by mouth once daily 75 mg, Oral, Daily, First dose on Thu02/18/23 at 0900 cyclobenzaprine hydrochloride 10 mg oral tablet (7 sources) Muscle Relaxant Start: 06-26-2017 End: 02-17-2023 take 1 tablet by mouth three times daily as needed for muscle spasms cyclobenzaprine (FLEXERIL) 10 MG tablet Take 1 (one) tablet (10 mg total) by mouth 3 (three) times a day as needed for muscle spasms. 15 tablet 0 06/26/2017 02/17/2023 Discontinued dexamethasone 0.75 mg oral tablet (1 source) Corticosteroid Start: 05-05-2015 End: 06-15-2015 take 1 tablet by mouth twice daily Dexamethasone 0.75 MG tablet Discontinued 0.75 MG PO TWO TIMES DAILY May 05, 2015 1:00am June 16, 2015 12:19am dextromethorphan hydrobromide 2 mg/ml / guaiFENesin 20 mg/ml oral solution (4 sources) Uncompetitive A-amvgzw-J-aspartat e Receptor Antagonist, Sigma-1 Agonist Start: 05-15-2023 End: 06-22-2023 take 5 mL by mouth every four hours dextromethorphan-gu aiFENesin 10-100 mg/5 mL Liqd Indications: Acute effusion of left ear Take 5 mL by mouth every 4 (four) hours . 118 mL 0 05/15/2023 06/22/2023 Discontinued diazePAM 5 mg oral tablet (2 sources) Benzodiazepine Start: 06-20-2015 End: 08-29-2024 take 1 tablet by mouth twice daily as needed for anxiety Diazepam 5 MG tablet Discontinued 5 MG PO TWO TIMES DAILY as needed for Anxiety June 20, 2015 1:00am August 29, 2024 1:56pm Start: 07-04-2014 End: 07-06-2014 take 1 tablet by mouth twice daily Diazepam (Valium) 5 MG tablet Discontinued 1 TAB PO TWO TIMES DAILY July 04, 2014 1:00am July 06, 2014 12:45pm diclofenac sodium 0.03 mg/mg topical gel (4 sources) Nonsteroidal Anti-inflammatory Drug Start: 01-31-2023 End: 02-20-2023 diclofenac sodium 3 % Gel Apply 1 application. topically 2 (two) times a day for 5 days . 100 g 0 01/31/2023 02/20/2023 Discontinued (Stop Taking at Discharge) take 1 tablet by mouth twice orly ly diclofenac (VOLTAREN) 75 MG EC tablet Take 75 mg by mouth 2 times daily 0 Active docusate sodium 100 mg oral capsule (1 source) Start: 06-04-2020 End: 06-05-2020 take 100 mg by mouth once daily 100 mg, Oral, Daily, First dose on Thu06/04/20 at 0900 [] Hold for loose stools. DO NOT CRUSH OR CHEW. 0.4 ml enoxaparin sodium 100 mg/ml prefilled syringe (7 sources) Low Molecular Weight Heparin Start: 04-27-2024 End: 04-29-2024 inject 40 mg by subcutaneous injection twice daily 40 mg, Subcutaneous, 2 times daily, First dose on Thu04/27/24 at 0900, Administer in abdomen unless otherwise directed by prescriber. Notify physician if patient refuses., Indication: VTE Prophylaxis Start: 03-30-2024 End: 04-04-2024 Start: 03-28-2024 End: 03-30-2024 Start: 03-25-2024 End: 03-28-2024 Start: 02-20-2023 End: 02-20-2023 enoxaparin (LOVENOX) syringe 30 mg Start: 02-18-2023 End: 02-19-2023 inject 40 mg by subcutaneous injection twice daily 40 mg, Subcutaneous, 2 times daily, First dose on Thu02/18/23 at 0900 Administer in abdomen unless otherwise directed by prescriber. Notify physician if patient refuses. Indication: VTE Prophylaxis Start: 06-03-2020 End: 06-05-2020 inject 40 mg by subcutaneous injection twice daily 40 mg, Subcutaneous, 2 times daily, First dose on Thu06/03/20 at 2000 Administer in abdomen unless otherwise directed by prescriber. Notify physician if patient refuses. Indication: VTE Prophylaxis ergocalciferol 1.25 mg oral capsule (20 sources) Provitamin D2 Compound Start: 09-12-2022 ergocalciferol 50,00 0 intl units Cap 50,000 International_Unit = 1 cap(s), Oral, Thursday, # 4 cap(s), Refills(s) 0 Start Date: 09/12/22 Status: Ordered Start: 08-22-2022 End: 04-29-2024 take 1 capsule by mouth every week ergocalciferol (Vitamin D2) 1,250 mcg (50,000 unit) capsule Take 1 (one) capsule (50,000 Units total) by mouth once a week . 12 capsule 1 03/24/2024 04/29/2024 Discontinued (Stop Taking at Discharge) Start: 08-22-2022 End: 09-12-2022 take 1250 ug by mouth every week Ergocalciferol (Vitamin D2) Active 1250 MCG PO every week September 12, 2022 12:00am Start: 04-08-2022 End: 05-20-2022 ergocalciferol 50,000 intl u nits Cap 50,000 International_Unit = 1 cap(s), Oral, q, X 6 week(s), # 6 cap(s), Refills(s) 0, Pharmacy: [facility], 162, cm, 04/06/22 20:38:00 EST, Height/Length Dosing, 112, kg, 04/06/22 20:38:00 EST, Weight Dosing Start Date: 04/08/22 Stop Date: 05/20/22 Status: Ordered End: 09-03-2023 take 1 capsule by mouth every week ergocalciferol (Vitamin D2) 1,250 mcg (50,000 unit) capsule Indications: Vitamin D deficiency Take 1.25 mcg by mouth once a week . 0 09/03/2023 Discontinued (Reorder (Suppress CancelRx Message to Pharmacy)) flu vacc [id number] 6mos up(PF) (FLUZONE QUAD/FLULAVAL QUAD/FLUARIX QUAD) syringe 0.5 mL (1 source) Start: 06-03-2020 End: 06-05-2020 inject 0.5 mL by intramuscular injection every twenty-four hours as needed flu vacc [id number] 6mos up(PF) (FLUZONE QUAD/FLULAVAL QUAD/FLUARIX QUAD) syringe 0.5 mL flu vacc [id number] 6mos up(PF) (FLUZONE QUAD/FLULAVAL QUAD/FLUARIX QUAD) syringe Syrg 0.5 mL (1 source) Start: 03-29-2023 End: 03-30-2023 inject 0.5 mL by intramuscular injection every twenty-four hours as needed flu vacc [id number] 6mos up(PF) (FLUZONE QUAD/FLULAVAL QUAD/FLUARIX QUAD) syringe Syrg 0.5 mL FLUoxetine 40 mg oral capsule (4 sources) Serotonin Reuptake Inhibitor Start: 08-22-2012 End: 06-05-2020 take 1 capsule by mouth once daily Fluoxetine 40 MG capsule Discontinued 40 MG PO DAILY April 13, 2015 1:00am April 28, 2015 1:54am fluticasone / salmeterol (20 sources) Corticosteroid, beta2-Adrenergi c Agonist End: 05-10-2023 take 1 puff(s) by inhalation twice daily fluticasone-salmet suraj (ADVAIR DISKUS) 250-50 mcg/dose diskus inhaler Inhale 1 (one) puff 2 (two) times a day . 0 05/10/2023 Discontinued (Error) take 1 puff(s) by in halation twice daily fluticasone-salmeterol (ADVAIR DISKUS) 2 50-50 mcg/dose diskus inhaler Inhale 1 (one) puff 2 (two) times a day . 0 take 1 puff(s) by in halation twice daily fluticasone-salmeterol (ADVAIR DISKUS) 2 50-50 mcg/dose diskus inhaler Inhale 1 (one) puff 2 (two) times a day . 0 Active take 1 puff(s) by in halation once daily fluticasone-salmeterol (ADVAIR) 250-50 M CG/DOSE AEPB Inhale 1 puff into the lungs daily 0 Active take 1 puff(s) by in halation twice daily fluticasone-salmeterol (ADVAIR DISKUS) 2 50-50 mcg/dose diskus inhaler Inhale 1 puff 2 (two) times a day. 0 Active fluticasone-salm eterol (ADVAIR DISKUS) 250-50 mcg/dose diskus inhaler Inhale 1 puff 2 (two) times a day. Active 60 actuat formoterol fumarate 0.005 mg/actuat / mometasone furoate 0.2 mg/actuat metered dose inhaler (1 source) Corticosteroid, beta2-Adrenergic Agonist Start: 02-18-2023 End: 02-20-2023 take 2 puff(s) by inhalation twice daily 2 puff, Inhalation, 2 times daily (RT), First dose on Thu02/18/23 at 0900 FreeStyle Zeinab 2 [place] Misc (20 sources) Start: 04-01-2023 End: 12-02-2023 FreeStyle Zeinab 2 [place] Misc Indications: Type 2 diabetes mellitus with diabetic polyneuropathy, with long-term current use of insulin (HCC) Inject 1 each under the skin 2 (two) times a day . 04/01/2023 12/02/2023 Discontinued (Alternate therapy) Start: 04-01-2023 FreeStyle Libr e 2 [place] Misc Indications: Type 2 diabetes mellitus with diabetic polyneuropathy, with long-term current use of insulin (HCC) Inject 1 each under the skin 2 (two) times a day . 04/01/2023 Active Start: 04-01-2023 FreeStyle Libr e 2 [place] Mis Indications: Type 2 diabetes mellitus with diabetic polyneuropathy, with long-term current use of insulin (HCC) Inject 1 each under the skin 2 (two) times a day . 0 04/01/2023 Suspended Start: 04-01-2023 FreeStyle Libr e 2 [place] Misc Indications: Type 2 diabetes mellitus with diabetic polyneuropathy, with long-term current use of insulin (HCC) Inject 1 each under the skin 2 (two) times a day . 0 04/01/2023 Active FreeStyle Zeinab 2 Sensor Kit (20 sources) Start: 11-12-2023 End: 12-02-2023 FreeStyle Zeinab 2 Sensor Kit Indications: Type 2 diabetes mellitus with diabetic polyneuropathy, with long-term current use of insulin (HCC) 1 kit by Miscellaneous route every 14 (fourteen) days . 2 kit 1 11/12/2023 12/02/2023 Discontinued (Alternate therapy) Start: 11-12-2023 FreeStyle Libr e 2 Sensor Kit Indications: Type 2 diabetes mellitus with diabetic polyneuropathy, with long-term current use of insulin (HCC) 1 kit by Miscellaneous route every 14 (fourteen) days . 2 kit 1 11/12/2023 Active Start: 09-03-2023 End: 11-12-2023 FreeStyle Zeinab 2 Sensor Kit Indications: Type 2 diabetes mellitus with diabetic polyneuropathy, with long-term current use of insulin (HCC) 1 kit by Miscellaneous route every 14 (fourteen) days . 2 kit 1 09/03/2023 11/12/2023 Discontinued (Reorder (Suppress CancelRx Message to Pharmacy)) Start: 09-03-2023 FreeStyle Libr e 2 Sensor Kit Indications: Type 2 diabetes mellitus with diabetic polyneuropathy, with long-term current use of insulin (HCC) 1 kit by Miscellaneous route every 14 (fourteen) days . 2 kit 1 09/03/2023 Active Start: 06-22-2023 End: 09-03-2023 FreeStyle Zeinab 2 Sensor Kit Indications: Type 2 diabetes mellitus with diabetic polyneuropathy, with long-term current use of insulin (HCC) 1 kit by Miscellaneous route every 14 (fourteen) days . 2 kit 1 06/22/2023 09/03/2023 Discontinued (Reorder (Suppress CancelRx Message to Pharmacy)) Start: 06-22-2023 FreeStyle Libr e 2 Sensor Kit Indications: Type 2 diabetes mellitus with diabetic polyneuropathy, with long-term current use of insulin (HCC) 1 kit by Miscellaneous route every 14 (fourteen) days . 2 kit 1 06/22/2023 Active Start: 04-20-2023 End: 06-22-2023 FreeStyle Zeinab 2 Sensor Kit Indications: Type 2 diabetes mellitus with diabetic polyneuropathy, with long-term current use of insulin (HCC) 1 kit by Miscellaneous route every 14 (fourteen) days . 0 04/20/2023 06/22/2023 Discontinued (Reorder (Suppress CancelRx Message to Pharmacy)) Start: 04-20-2023 FreeStyle Libr e 2 Sensor Kit Indications: Type 2 diabetes mellitus with diabetic polyneuropathy, with long-term current use of insulin (HCC) 1 kit by Miscellaneous route every 14 (fourteen) days . 0 04/20/2023 Suspended Start: 04-20-2023 FreeStyle Libr e 2 Sensor Kit Indications: Type 2 diabetes mellitus with diabetic polyneuropathy, with long-term current use of insulin (HCC) 1 kit by Miscellaneous route every 14 (fourteen) days . 0 04/20/2023 Active gabapentin 100 mg oral capsule (2 sources) Anti-epileptic Agent Start: 03-31-2023 End: 05-06-2023 take 2 capsules by mouth twice daily gabapentin (NEURONTIN) 100 MG capsule Take 2 (two) capsules (200 mg total) by mouth 2 (two) times a day . 0 03/31/2023 05/06/2023 Discontinued (Therapy completed) 12 hr guaiFENesin 600 mg extended release oral tablet (15 sources) Start: 05-06-2023 End: 06-22-2023 take 1 tablet by mouth once guaiFENesin (MUCINEX) 600 mg 12 hr tablet Indications: Non-recurrent acute suppurative otitis media of left ear without spontaneous rupture of tympanic membrane Take 1 (one) tablet (600 mg total) by mouth every 12 (twelve) hours . 20 tablet 0 05/06/2023 06/22/2023 Discontinued Start: 04-08-2022 take 2 tablets by [facility] twice daily Mucinex 600 mg Tab-ER 1,200 mg = 2 tab(s), Oral, BID, # 30 tab(s), Refills(s) 0, Pharmacy: [facility], 162, cm, 04/06/22 20:38:00 EST, Height/Length Dosing, 112, kg, 04/06/22 20:38:00 EST, Weight Dosing Start Date: 04/08/22 Status: Ordered 12 hr guaiFENesin 600 mg / pseudoephedrine hydrochloride 60 mg extended release oral tablet (2 sources) alpha-Adrenergic Agonist Start: 05-04-2023 End: 05-06-2023 take 1 tablet by mouth every twelve hours pseudoephedrine-guaiFENesin (MUCINEX D) 60-600 mg per tablet Take 1 (one) tablet by mouth every 12 (twelve) hours for 7 days . 14 tablet 0 05/04/2023 05/06/2023 Discontinued (Therapy completed) heparin (6 sources) Unfractionated Heparin, Anti-coagulant Start: 04-29-2024 End: 04-29-2024 500 Units, Intravenous, Once , On Thu04/29/24 at 1500, For 1 dose, De-access port Start: 04-04-2024 End: 04-04-2024 Start: 01-18-2024 End: 01-18-2024 500 Units, Intravenous, Once , On Thu01/18/24 at 1200, For 1 dose Start: 01-18-2024 End: 01-18-2024 inject 5000 [IU] by subcutaneous injection every eight hours 5,000 Units, Subcutaneous, Every 8 hours scheduled, First dose on Thu01/18/24 at 0900, Notify physician if patient refuses. Start: 03-30-2023 End: 03-30-2023 heparin, porcine (PF) inject ion 500 Units Start: 03-29-2023 End: 03-30-2023 inject 5000 [IU] by subcutaneous injection every eight hours 5,000 Units, Subcutaneous, Every 8 hours scheduled, First dose on Thu03/29/23 at 2200 Notify physician if patient refuses. 1 ml hydrALAZINE hydrochloride 20 mg/ml injection (3 sources) Arteriolar Vasodilator Start: 04-27-2024 End: 04-29-2024 take 10 mg intravenously every six hours as needed 10 mg, Intravenous, Every 6 hours PRN, SBP > 180 or DBP > 100, hold for HR >100, Starting on Thu04/27/24 at 0109 Start: 04-01-2024 End: 04-04-2024 take 10 mg intravenously every six hours as needed Start: 01-13-2024 End: 01-18-2024 take 10 mg intravenously every six hours as needed 10 mg, Intravenous, Every 6 hours PRN, sbp>180, Starting on Thu01/13/24 at 1831 0.5 ml HYDROmorphone hydrochloride 1 mg/ml prefilled syringe (1 source) Opioid Agonist Start: 06-04-2020 End: 06-05-2020 take 0.5 mg intravenous route every three hours as needed HYDROmorphone (DILAUDID) injection 0.5 mg indomethacin 50 mg oral capsule (1 source) Nonsteroidal Anti-inflammatory Drug Start: 05-05-2015 End: 06-15-2015 take 1 capsule by mouth three times daily as needed for pain Indomethacin 50 MG capsule Discontinued 50 MG PO THREE TIMES DAILY as needed for Pain May 05, 2015 4:39pm June 16, 2015 12:19am insulin aspart, human 100 unt/ml injectable solution (2 sources) Insulin Analog Start: 01-18-2013 End: 08-29-2024 inject 1 [IU] by subcutaneous injection at bedtime Insulin Aspart U-100 (Novolog U-100 Insulin Aspart) 1000 UNIT/10 ML solution Discontinued 1 UNIT SQ BEFORE MEALS AND AT BEDTIME January 18, 2013 12:00am August 29, 2024 1:56pm Insulin Aspart ( NOVOLOG SC) Inject into the skin Via insulin pump per patient 0 Active 3 ml insulin detemir 100 unt/ml pen injector (14 sources) Insulin Analog Start: 01-29-2019 End: 08-05-2019 inject 10 [IU] by subcutaneous injection once daily Insulin Detemir U-100 (Levemir Flextouch U-100 Insuln) 100 unit/mL (3 mL) Insulin Pen Discontinued 10 UNITS SUBCUT Daily 0 January 29, 2019 12:00am August 05, 2019 3:09pm Start: 07-23-2018 End: 09-06-2018 inject 70 [IU] by subcutaneous injection twice daily Insulin Detemir U-100 (Levemir U-100 Insulin) 100 unit/mL Solution Discontinued 70 UNIT SUBCUT Twice daily July 23, 2018 1:00am September 06, 2018 9:11pm inject 25 [IU] by ramirez bcutaneous injection once daily insulin glargine 100 unt/ml injectable solution (20 sources) Insulin Analogue Start: 04-28-2024 End: 04-29-2024 60 Units, Subcutaneous, Nightly, First dose (after last modification) on Danelle 04/28/24 at 2100, If patient NPO and BG LESS than 100 before procedure, administer half (rounded up to nearest unit) of the glargine insulin (LANTUS) dose; if BG is GREATER than 100, administer the full dose unless otherwise instructed by ordering physician Do not mix with other insulins in a syringe. Do NOT hold basal insulin without notifying physician Start: 04-27-2024 End: 04-28-2024 45 Units, Subcutaneous, Nigh tly, First dose (after last modification) on Thu04/27/24 at 2100, If patient NPO and BG LESS than 100 before procedure, administer half (rounded up to nearest unit) of the glargine insulin (LANTUS) dose; if BG is GREATER than 100, administer the full dose unless otherwise instructed by ordering physician Do not mix with other insulins in a syringe. Do NOT hold basal insulin without notifying physician Start: 04-27-2024 End: 04-27-2024 35 Units, Subcutaneous, Nigh tly, First dose (after last modification) on Thu04/27/24 at 0300, If patient NPO and BG LESS than 100 before procedure, administer half (rounded up to nearest unit) of the glargine insulin (LANTUS) dose; if BG is GREATER than 100, administer the full dose unless otherwise instructed by ordering physician Do not mix with other insulins in a syringe. Do NOT hold basal insulin without notifying physician Start: 03-29-2024 End: 04-04-2024 Start: 03-29-2023 End: 03-30-2023 inject 25 [IU] by subcutaneous injection once daily 25 Units, Subcutaneous, Nightly, First dose on Thu03/29/23 at 2100 Do not mix with other insulins in a syringe. Do NOT hold basal insulin without notifying physician Start: 02-20-2023 insulin glargi ne (LANTUS SOLOSTAR/BASAGLAR KWIKPEN) 100 unit/mL (3 mL) InPn Inject 25 (twenty five) Units under the skin nightly . 7.5 mL 0 02/20/2023 Active Start: 01-14-2023 End: 05-06-2023 insulin glargine (LANTUS SOLOSTAR/BASAGLAR KWIKPEN) 100 unit/mL (3 mL) InPn Inject 25 (twenty five) Units under the skin nightly . 7.5 mL 0 02/20/2023 05/06/2023 Discontinued (Therapy completed) Start: 04-01-2017 inject 48 [IU] by ramirez bcutaneous injection at bedtime insulin glargine 100 UNIT/ML Solution Pen-injector injection Inject 48 Units under the skin at bedtime. 15 mL 1 04/01/2017 Active Start: 03-29-2015 inject 55 [IU] by ramirez bcutaneous injection twice daily in the evening, then inject 60 [IU] by subcutaneous injection in the morning LANTUS 100 unit/mL injection Inject under the skin 2 (two) times a day 55 units in the evening 60 units in the morning 5 03/29/2015 Active Start: 03-29-2015 LANTUS 100 uni t/mL injection Inject under the skin 2 (two) times a day 55 units in the evening 60 units in the morning 5 03/29/2015 Active Start: 07-04-2014 End: 08-29-2024 Insulin Glargine (Lantus Yudi ostar U-100 Insulin) 300 UNIT/3 ML insulin pen Discontinued 55 UNITS SQ BEDTIME July 04, 2014 1:00am August 29, 2024 1:56pm insulin glargine (LANTUS) 100 UNIT/ML injection vial Inject 60 Units into the skin 2 times daily 0 Active insulin lispro (AdmeLOG,HumaLOG) injection 0-15 Units (1 source) Start: 04-27-2024 End: 04-29-2024 insulin lispro (AdmeLOG,HumaLOG) injection 0-15 Units Insulin Pump Cart,Auto,Bt,G6/7 (Omnipod 5 G6-G7 Pods (Gen 5)) cartridge (1 source) Start: 08-29-2024 End: 08-29-2024 Insulin Pump Cart,Auto,Bt,G6/7 (Omnipod 5 G6-G7 Pods (Gen 5)) cartridge Discontinued EACH SQ August 29, 2024 12:00am August 29, 2024 1:56pm insulin, regular, human 100 unt/ml injectable solution (1 source) Insulin Start: 03-24-2024 End: 03-25-2024 iohexol (OMNIPAQUE) 300 MG/ML injection (1 source) Start: 10-07-2022 End: 10-07-2022 iohexol (OMNIPAQUE) 300 MG/ML injection lidocaine 40 mg/ml topical cream (20 sources) Antiarrhythmic, Amide Local Anesthetic Start: 09-22-2023 End: 09-21-2024 lidocaine (LMX) 4 % cream Apply topically 3 (three) times a day . 90 g 3 09/22/2023 08/02/2024 Discontinued (Therapy completed) Start: 09-07-2018 End: 03-24-2019 Lidocaine Discontinued 1 FRIDA LIC TOPICAL Twice daily September 07, 2018 12:00am March 24, 2019 8:31am Start: 07-23-2018 Start: 07-23-2018 Lidocaine 5 % as directed Externally bid prn Jul, Active lidocaine 25 mg/ml / prilocaine 25 mg/ml topical cream (15 sources) Antiarrhythmic, Amide Local Anesthetic Start: 03-22-2024 End: 04-29-2024 lidocaine-prilocaine (EMLA) cream Indications: Candidiasis Apply topically as needed . 30 g 1 03/22/2024 04/29/2024 Discontinued (Stop Taking at Discharge) Start: 03-22-2024 lidocaine-priloc miguel (EMLA) 2.5-2.5 % cream Apply topically as needed for Pain Apply topically as needed. 0 Active loperamide hydrochloride 2 mg oral capsule (15 sources) Opioid Agonist Start: 03-22-2024 End: 04-29-2024 loperamide (IMODIUM) 2 mg capsule Indications: Diarrhea, unspecified type Take 1 (one) capsule (2 mg total) by mouth as needed for diarrhea (Max dose 7 pills) . 20 capsule 1 03/22/2024 04/29/2024 Discontinued (Stop Taking at Discharge) Start: 07-06-2014 End: 02-22-2015 take 1 capsule by mouth four times daily as needed for diarrhea Loperamide 2 MG capsule Discontinued 2 MG PO FOUR TIMES DAILY as needed for Diarrhea July 06, 2014 1:02pm February 22, 2015 7:35pm LORazepam 0.5 mg oral tablet (1 source) Benzodiazepine End: 12-08-2021 take 1 tablet by mouth every eight hours as needed for anxiety LORazepam (ATIVAN) 0.5 MG tablet Take 0.5 mg by mouth every 8 hours as needed for Anxiety 0 12/08/2021 Discontinued (Therapy completed) lurasidone hydrochloride 20 mg oral tablet (20 sources) Atypical Antipsychotic Start: 11-05-2018 End: 01-29-2019 Lurasidone (Latuda) 20 mg tablet Discontinued TABLET January 22, 2019 12:00am January 29, 2019 11:28am magnesium hydroxide 80 mg/ml oral suspension (2 sources) Start: 02-18-2023 End: 02-20-2023 take 2400 mg by mouth once daily as needed for constipation 2,400 mg (30 mL), Oral, Daily PRN, constipation, Starting on Thu02/18/23 at 0028 If no bowel movement in 24 hours after Sennosides (SENNA) administration. Start: 06-03-2020 End: 06-05-2020 take 2400 mg by mouth once daily as needed for constipation 2,400 mg (30 mL), Oral, Daily PRN, constipation, For constipation., Starting 06/03/20 at 1750 50 ml magnesium sulfate 40 m g/ml injection (1 source) Start: 10-07-2022 End: 10-07-2022 magnesium sulfate 2 GM/50ML in 50 mL ivpb melatonin 5 mg oral tablet (3 sources) Start: 01-12-2024 End: 01-18-2024 5 mg, Oral, Nightly PRN, Sle ep, Starting on Tu01/12/24 at 1823, If still awake in 1 hour proceed to trazodone (Desyrel) Start: 03-29-2023 End: 03-30-2023 take 5 mg by mouth once daily as needed for sleep 5 mg, Oral, Nightly PRN, Sleep, Starting on 03/29/23 at 1432 If still awake in 1 hour proceed to trazodone (Desyrel) Start: 02-18-2023 End: 02-20-2023 take 5 mg by mouth once daily as needed for sleep 5 mg, Oral, Nightly PRN, Sleep, Starting on Thu02/18/23 at 0028 If still awake in 1 hour proceed to trazodone (Desyrel) methylPREDNISolone (2 sources) Corticosteroid Start: 04-20-2018 Depo-Medrol 40 mg Mar, 40 mg Start: 04-01-2018 Depo-Medrol 40 mg Mar, 20 mg metoclopramide 10 mg oral tablet (10 sources) Dopamine-2 Receptor Antagonist Start: 05-13-2023 End: 08-03-2023 take 1 tablet by mouth three times daily before mealtime metoclopramide (REGLAN) 10 MG tablet Take 1 (one) tablet (10 mg total) by mouth 3 (three) times a day before meals for 10 days . 30 tablet 0 05/13/2023 08/03/2023 Discontinued (Therapy completed) metroNIDAZOLE 500 mg oral tablet (1 source) Nitroimidazole Antimicrobial Start: 07-06-2014 End: 07-06-2014 take 1 tablet by mouth three times daily Metronidazole (Flagyl) 500 MG tablet Discontinued 500 MG PO THREE TIMES DAILY July 06, 2014 1:00am July 06, 2014 1:01pm micafungin sodium 100 mg injection (6 sources) Echinocandin Antifungal Start: 01-29-2019 End: 03-24-2019 Micafungin Discontinued 100 MG IV Q24H 10 January 29, 2019 12:00am March 24, 2019 8:33am administer over 60 mins midodrine hydrochloride 5 mg oral tablet (1 source) alpha-Adrenergic Agonist Start: 02-19-2023 End: 02-20-2023 midodrine (PROAMATINE) tablet 10 mg 1 ml morphine sulfate 4 mg/ml cartridge (8 sources) Opioid Agonist Start: 04-26-2024 End: 04-26-2024 4 mg, Intravenous, Once, On Thu04/26/24 at 2140, For 1 dose Start: 03-24-2024 End: 03-24-2024 Start: 03-29-2023 End: 03-29-2023 morphine injection 2 mg Start: 02-17-2023 End: 02-17-2023 morphine syringe 4 mg Start: 06-03-2020 End: 01-10-2021 morphine syringe 4 mg Start: 06-26-2017 End: 06-26-2017 morphine concentrated 10 mg/ 0.5 ml oral syringe 10 mg 10 mg, Oral, Once, Thu06/26/17 at 1920, For 1 dose Given 06/26/2017 19:23 EST 10 mg Start: 06-15-2015 End: 08-29-2024 take 1 tablet by mouth once daily Morphine 15 MG tablet extended release Discontinued 15 MG PO DAILY June 15, 2015 1:00am August 29, 2024 1:56pm Start: 03-08-2015 End: 06-26-2017 take 1 tablet by mouth twice daily, then take 1 tablet by mouth every twelve hours morphine (MS CONTIN) 15 MG 12 hr tablet Take 15 mg by mouth 2 (two) times a day 0 03/08/2015 06/26/2017 Discontinued Muscle Relaxant (1 source) Start: 06-20-2015 End: 08-29-2024 Muscle Relaxant Discontinued DAILY June 20, 2015 1:00am August 29, 2024 1:56pm naloxone (NARCAN) 4 mg/actuation Rafael Gonzalez (13 sources) Start: 04-14-2024 End: 08-02-2024 naloxone (NARCAN) 4 mg/actua tion Rafael Gonzalez Administer 1 spray into one nostril for known or suspected opioid overdose. If patient worsens or does not respond, may repeat in 2-3 minutes. . 2 each 04/14/2024 08/02/2024 Discontinued (Therapy completed) Start: 04-14-2024 naloxone (NARC AN) 4 mg/actuation Rafael Gonzalez Administer 1 spray into one nostril for known or suspected opioid overdose. If patient worsens or does not respond, may repeat in 2-3 minutes. . 2 each 04/14/2024 Start: 04-14-2024 naloxone (NARC AN) 4 mg/actuation Rafael Gonzalez Administer 1 spray into one nostril for known or suspected opioid overdose. If patient worsens or does not respond, may repeat in 2-3 minutes. . 2 each 04/14/2024 Suspended Start: 04-14-2024 naloxone (NARC AN) 4 mg/actuation Rafael Gonzalez Administer 1 spray into one nostril for known or suspected opioid overdose. If patient worsens or does not respond, may repeat in 2-3 minutes. . 2 each 04/14/2024 Active naloxone (NARCAN) injection 0.1 mg (3 sources) Start: 04-27-2024 End: 04-29-2024 naloxone (NARCAN) injection 0.1 mg Start: 01-12-2024 End: 01-18-2024 naloxone (NARCAN) injection 0.1 mg Start: 06-03-2020 End: 06-05-2020 naloxone (NARCAN) injection 0.1 mg naratriptan 2.5 mg oral tablet (6 sources) Serotonin-1b and Serotonin-1d Receptor Agonist Start: 07-23-2018 End: 09-07-2018 Naratriptan Discontinued TABLET As Directed July 23, 2018 1:00am September 07, 2018 2:57pm 24 hr nicotine 0.583 mg/hr transdermal system (2 sources) Cholinergic Nicotinic Agonist Start: 04-27-2024 End: 04-29-2024 apply 1 dose transdermal route once daily 1 patch, Transdermal, Administer over 24 Hours, Daily, First dose (after last modification) on Thu04/27/24 at 0900, U/P Listed Hazardous Drug. Waste Must Be Disposed in [employer] Start: 03-30-2024 End: 04-04-2024 nitroglycerin 0.4 mg sublingual tablet (4 sources) Nitrate Vasodilator Start: 03-29-2023 End: 03-30-2023 0.4 mg, Sublingual, Every 5 min PRN, chest pain, Starting on Thu03/29/23 at 1432 For chest pain. May give up to 3 doses. Call physician for chest pain unrelieved by Nitroglycerin, or recurrent chest pain. DO NOT CRUSH OR CHEW. Start: 02-18-2023 End: 02-20-2023 0.4 mg, Sublingual, Every 5 min PRN, chest pain, Starting on Thu02/18/23 at 0028, For 3 doses For chest pain unrelieved by Nitroglycerin or recurrent chest pain, CALL PHYSICIAN DO NOT CRUSH OR CHEW. Start: 02-17-2023 End: 02-17-2023 nitroGLYCERIN (NITRO-BID) 2 % ointment 1 inch Start: 06-03-2020 End: 06-05-2020 0.4 mg, Sublingual, Every 5 min PRN, chest pain, Starting 06/03/20 at 1750 For chest pain. May give up to 3 doses. Call physician for chest pain unrelieved by Nitroglycerin, or recurrent chest pain. DO NOT CRUSH OR CHEW. nystatin 100 unt/mg topical powder (20 sources) Polyene Antifungal Start: 03-22-2024 End: 03-22-2025 nystatin (MYCOSTATIN) powder Indications: Candidiasis Apply topically 2 (two) times a day . 30 g 1 03/22/2024 08/02/2024 Discontinued (Therapy completed) Start: 03-22-2024 End: 03-22-2025 Start: 10-06-2022 nystatin (Myco statin) ointment APPLY OINTMENT TOPICALLY TWICE DAILY FOR 10 DAYS 10/06/2022 Active Start: 09-26-2022 nystatin (Myco statin) cream APPLY CREAM TOPICALLY TO AFFECTED AREA TWICE DAILY FOR 5 DAYS 09/26/2022 Active nystatin (MYCOST ATIN) 128736 UNIT/GM cream Apply topically 2 times daily Apply topically 2 times daily. 0 Active nystatin (MYCOST ATIN) 886113 UNIT/GM powder Apply topically 4 times daily Apply topically 4 times daily. 0 Active OLANZapine 5 mg oral tablet (4 sources) Atypical Antipsychotic Start: 09-16-2023 End: 10-16-2023 take 0.5 tablet by mouth twice daily as needed for anxiety OLANZapine (ZYPREXA) 5 MG tablet Take 0.5 (one-half) tablet (2.5 mg total) by mouth 2 (two) times a day As needed for anxiety . 30 tablet 0 09/16/2023 10/07/2023 Discontinued (Non-compliance (Suppress CancelRx Message to Pharmacy)) ondansetron (ZOFRAN-ODT) disintegrating tablet 4 mg (4 sources) Start: 01-12-2024 End: 01-18-2024 take 1 tablet by mouth every six hours as needed for nausea and vomiting ondansetron (ZOFRAN-ODT) disintegrating tablet 4 mg Start: 03-29-2023 End: 03-30-2023 take 1 tablet by mouth every six hours as needed for nausea and vomiting ondansetron (ZOFRAN-ODT) disintegrating tablet 4 mg Start: 02-18-2023 End: 02-20-2023 take 1 tablet by mouth every six hours as needed for nausea and vomiting ondansetron (ZOFRAN-ODT) disintegrating tablet 4 mg Start: 06-03-2020 End: 06-05-2020 take 1 tablet by mouth every six hours as needed ondansetron (ZOFRAN-ODT) disintegrating tablet 4 mg 2 ml orphenadrine citrate 30 mg/ml injection (1 source) Muscle Relaxant Start: 06-26-2017 End: 06-26-2017 take 60 mg by intramuscular injection once, then take 60 mg by intramuscular injection orphenadrine (NORFLEX) injection 60 mg 60 mg, Intramuscular, Once, Thu06/26/17 at 1920, For 1 dose Given 06/26/2017 19:23 EST 60 mg Left Ventrogluteal oxybutynin chloride 5 mg oral tablet (20 sources) Cholinergic Muscarinic Antagonist Start: 10-20-2017 End: 03-24-2019 take 5 mg by mouth twice daily Oxybutynin Chloride Discontinued 5 MG PO Twice daily September 07, 2018 12:00am March 24, 2019 8:33am oxyCODONE hydrochloride 5 mg oral tablet (2 sources) Opioid Agonist Start: 02-06-2015 End: 08-29-2024 take 1 tablet by mouth every four hours as needed oxyCODONE (ROXICODONE) immediate release tablet 5 mg piperacillin 4000 mg / tazobactam 500 mg injection (4 sources) Penicillin-class Antibacterial, beta Lactamase Inhibitor Start: 04-26-2024 End: 04-26-2024 4.5 g, Intravenous, at 200 mL/hr, Once, On Thu04/26/24 at 2110, For 1 dose, VESICANT, Indication: Skin/Soft Tissue Infection Start: 03-25-2024 End: 03-30-2024 take 3.375 g intravenously every eight hours Start: 03-24-2024 End: 03-25-2024 Start: 01-12-2024 End: 01-15-2024 take 3.375 g intravenously every eight hours 3.375 g, Intravenous, at 12.5 mL/hr, Every 8 hours, First dose on Thu01/12/24 at 2000, VESICANT, Indication: Skin/Soft Tissue Infection microencapsulated potassium chloride 20 meq extended release oral tablet (13 sources) Start: 03-31-2024 End: 03-31-2024 Start: 10-03-2021 End: 10-17-2021 take 1 tablet by mouth twice daily at mealtime potassium chloride 20 mEq ER Tab 20 mEq = 1 tab(s), Oral, BID, with a full glass of water with food, X 14 day(s), # 28 tab(s), Refills(s) 0, Pharmacy: [facility], 158, cm, 09/30/21 14:00:00 EDT, Height/Length Dosing, 112.8, kg, 09/30/21 14:00:00 EDT, Weight Dosing Start Date: 10/03/21 Stop Date: 10/17/21 Status: Ordered Start: 08-05-2019 End: 06-05-2020 potassium chloride 20 mEq Tb ER 20 mEq . 0 08/05/2019 06/05/2020 Discontinued (Stop Taking at Discharge) Start: 08-05-2019 End: 08-20-2022 take 20 mEq by mouth once daily potassium chloride Dis continued 20 MEQ PO Daily August 05, 2019 12:00am August 05, 2019 3:09pm take 1 capsule by mo [facility] every twenty-four hours Potassium Chloride 10 MEQ 1 capsule with food Orally Once a day Active promethazine hydrochloride 25 mg oral tablet (20 sources) Phenothiazine Start: 07-31-2023 End: 10-13-2023 take 1 tablet by mouth every six hours as needed for nausea promethazine (PHENERGAN) 25 MG tablet Take 1 (one) tablet (25 mg total) by mouth every 6 (six) hours as needed for nausea . 10 tablet 07/31/2023 10/13/2023 Discontinued (Therapy completed) Start: 08-20-2022 take 25 mg by mouth every six hours Promethazine Active 25 MG PO Q6H August 20, 2022 12:00am Start: 08-20-2022 Promethazine A ctive MG TABLET August 20, 2022 12:00am Start: 01-24-2022 take 1 tablet by eduardo three times daily promethazine 25 mg Tab 25 mg = 1 tab(s), Oral, TID, # 15 tab(s), Refills(s) 0, Pharmacy: [id number], 157, cm, 01/24/22 10:48:00 EDT, Height/Length Dosing, 115, kg, 01/24/22 10:48:00 EDT, Weight Dosing Start Date: 01/24/22 Status: Ordered Start: 07-23-2018 End: 09-07-2018 take 25 mg by mouth every six hours Promethazine Discontinued 25 MG PO Every 6 hours July 23, 2018 1:00am September 07, 2018 2:59pm promethazine (Ph energan) 25 MG tablet every 12 (twelve) hours. Active regadenoson (LEXISCAN) injection 0.4 mg (1 source) Start: 02-18-2023 End: 02-18-2023 regadenoson (LEXISCAN) injection 0.4 mg rimegepant 75 mg disintegrating oral tablet (3 sources) Start: 02-11-2024 End: 03-22-2024 apply 1 tablet topically once daily as needed Rimegepant (NURTEC) 75 mg ODT Indications: Chronic nonintractable headache, unspecified headache type Dissolve 1 (one) tablet (75 mg total) on top of tongue daily as needed (migraine) . 4 tablet 02/11/2024 03/22/2024 Discontinued (Therapy completed) 72 hr scopolamine 0.0139 mg/hr transdermal system (1 source) Anticholinergic Start: 03-25-2024 End: 03-28-2024 sennosides, fci 8.6 mg oral tablet (4 sources) Start: 04-27-2024 End: 04-29-2024 take 1 tablet by mouth once daily 17.2 mg (2 tablet), Oral, Nightly, First dose on Thu04/27/24 at 0200, For 5 days Start: 01-12-2024 End: 01-18-2024 Start: 03-29-2023 End: 03-30-2023 take 1 tablet by mouth twice daily as needed for constipation 8.6 mg (1 tablet), Oral, 2 times daily PRN, constipation, Starting on 03/29/23 at 1432 Start: 02-18-2023 End: 02-20-2023 take 1 tablet by mouth twice daily as needed for constipation 8.6 mg (1 tablet), Oral, 2 times daily PRN, constipation, Starting on Thu02/18/23 at 0028 1000 ml sodium chloride 9 mg /ml injection (20 sources) Start: 04-29-2024 End: 04-29-2024 Starting on Thu04/29/24 at 1345, For 1 dose, YVETTE CANCHOLA: cabinet override Start: 04-26-2024 End: 04-27-2024 take 100 mL intravenously every hour 100 mL/hr, Intravenous, Continuous, Starting on Thu04/26/24 at 2350, For 10 hours Start: 03-26-2024 End: 03-29-2024 Start: 03-24-2024 End: 03-25-2024 Start: 01-12-2024 End: 01-18-2024 sodium chloride (PF) (NS) fl ush 5 mL Start: 01-12-2024 End: 01-16-2024 500 mL, Intravenous, at 1,87 5 mL/hr, Once, On 01/16/24 at 0630, For 1 dose Start: 03-29-2023 End: 03-30-2023 sodium chloride (PF) (NS) fl ush 5 mL Start: 02-19-2023 End: 02-20-2023 sodium chloride 0.9% (NS) Start: 02-19-2023 End: 02-19-2023 sodium chloride 0.9% (NS) callie arash 500 mL Start: 02-18-2023 End: 02-20-2023 sodium chloride (PF) (NS) fl ush 5 mL Start: 06-03-2020 End: 06-05-2020 take 100 mL intravenous route every hour 100 mL/hr, Intravenous, Continuous, Starting 06/03/20 at 1845 Start: 06-03-2020 End: 06-05-2020 sodium chloride (PF) (NS) fl ush 5 mL Start: 09-22-2019 End: 09-03-2021 Sodium Chloride (Saline Woun d Wash) 0.9 % aerosol,spray Discontinued 1 APPLIC TOPICAL Twice daily September 22, 2019 12:00am September 03, 2021 2:45pm subcutaneous insulin pump Misc (1 source) Start: 01-12-2024 End: 01-18-2024 Miscellaneous, Continuous, Starting on Thu01/12/24 at 2215, Select Insulin Product in Pump: lispro (HUMALOG), Specify Number of Different Basal Rates per 24hr: 2, Starting Time: 12:00 AM, Basal Rate (units / hr): 2.5, Starting Time: 6:00 AM, Basal Rate (units / hr): 2.7, Prandial Bolus Method: Carbohydrate Ratio (1 unit of insulin per specified grams of carbs) sulfamethoxazole 800 mg / trimethoprim 160 mg oral tablet (9 sources) Dihydrofolate Reductase Inhibitor Antibacterial, Sulfonamide Antimicrobial Start: 07-05-2024 End: 07-15-2024 take 1 tablet by mouth twice daily sulfamethoxazole-tr imethoprim (BACTRIM DS,SEPTRA DS) 800-160 mg per tablet Take 1 (one) tablet by mouth 2 (two) times a day . 07/05/2024 07/15/2024 Start: 10-24-2022 End: 07-15-2024 take 1 tablet by mouth once in the morning, then take 1 tablet by mouth once at bedtime, then take 1 tablet by mouth twice daily sulfamethoxazole-trimethoprim (Bactrim D S) 800-160 MG per tablet Indications: Diabetic Foot Infection Take 1 tablet by mouth in the morning and 1 tablet before bedtime. Do all this for 10 days. TAKE 1 PILL P.O. B.I.D. FOR 10 DAYS. 20 tablet 07/05/2024 07/15/2024 Active Start: 09-15-2022 End: 09-20-2022 take 1 tablet by mouth every twelve hours Bactrim D.S. 800 mg-160 mg Tab 1 tab(s), Oral, q12hr, 11 tab(s), Refill(s) 0, START TONIGHT; drink plenty of fluids, [facility], 157, cm, 09/12/22 13:52:00 EDT, Height/Length Dosing, 113, kg, 09/12/22 13:52:00 EDT, Weight Dosing Start Date: 09/15/22 Stop Date: 09/20/22 Status: Ordered Start: 05-15-2022 End: 05-22-2022 take 1 tablet by mouth twice daily Bactrim D.S. 800 mg-160 mg Tab 1 tab(s), Oral, BID for 7 day(s), 14 tab(s), Refill(s) 0, [facility], 157, cm, 05/15/22 16:23:00 EST, Height/Length Dosing, 113, kg, 05/15/22 16:23:00 EST, Weight Dosing Start Date: 05/15/22 Stop Date: 05/22/22 Status: Ordered tamsulosin hydrochloride 0.4 mg oral capsule (1 source) alpha-Adrenergic Kathia Start: 04-09-2022 End: 04-09-2022 Flomax 0.4 mg Cap 0.4 mg = 1 cap(s), Cap, Oral, Start date 04/09/22 9:00:00 EST, 04/08/22 5:48:00 EST Start Date: 04/09/22 Stop Date: 04/09/22 Status: Completed technetium (Tc-99m) sestamibi (CARDIOLITE) injection 30.4 millicurie (1 source) Start: 02-18-2023 End: 02-18-2023 technetium (Tc-99m) sestamibi (CARDIOLITE) injection 30.4 millicurie technetium (Tc-99m) sestamibi (CARDIOLITE) injection 8-25 millicurie (1 source) Start: 02-18-2023 End: 02-18-2023 technetium (Tc-99m) sestamibi (CARDIOLITE) injection 8-25 millicurie traMADol hydrochloride 50 mg oral tablet (4 sources) Opioid Agonist Start: 11-28-2022 End: 08-29-2024 take 1 tablet by mouth every eight hours as needed for pain Tramadol 50 mg tablet Discontinued 50 MG PO Q8H as needed for pain 7 November 28, 2022 12:00am August 29, 2024 1:56pm Start: 09-12-2022 take 1 tablet by eduardo th once daily as needed for pain traMADOL 50 mg Tab 50 mg = 1 tab(s), Oral, Daily, PRN for pain, # 30 tab(s), Refills(s) 0 Start Date: 09/12/22 Status: Ordered urea 400 mg/ml topical cream (6 sources) Start: 10-23-2023 End: 11-22-2023 urea (CARMOL) 40 % Crea Appl y 1 application. topically 2 (two) times a day . 85 g 3 10/23/2023 11/22/2023 Urea (CARMOL 40 EX) Apply topically. Active divalproex sodium 500 mg delayed release oral tablet (20 sources) Mood Stabilizer, Anti-epileptic Agent Start: 01-12-2024 End: 01-14-2024 take 500 mg by mouth every twelve hours 500 mg, Oral, Every 12 hours scheduled, First dose on Thu01/12/24 at 2200, CATEGORY D HAZARDOUS DRUG use safe handling precautions. Use reference link to view PPE guidelines. DO NOT CRUSH OR CHEW. Start: 06-03-2020 End: 06-05-2020 divalproex (DEPAKOTE) delaye d release (DR) tablet 500 mg Start: 11-05-2018 take 1 tablet by eduardo th twice daily divalproex sodium 500 mg ER Tab 500 mg = 1 tab(s), Oral, BID, Refills(s) 0, Seizure Start Date: 11/05/18 Status: Ordered Start: 09-09-2018 End: 03-22-2024 take 1 tablet by mouth twice daily divalproex (DEPAKOTE) 500 MG delayed release (DR) tablet Take 1 (one) tablet (500 mg total) by mouth 2 (two) times a day . 0 05/31/2020 02/17/2023 Discontinued Start: 09-07-2018 End: 09-09-2018 take 250 mg by mouth twice daily Divalproex Discontinued 250 MG PO Twice daily September 07, 2018 12:00am September 09, 2018 1:12pm 250 ml vancomycin 5 mg/ml injection (7 sources) Glycopeptide Antibacterial Start: 03-25-2024 End: 03-26-2024 take 1250 mg intravenously every twenty-four hours Start: 01-29-2019 End: 03-24-2019 take 1 g intravenously every eight hours Vancomycin Discontinued 1 GM IV Q8H 10 January 29, 2019 12:00am March 24, 2019 8:31am vitamin b12 1 mg oral tablet (20 sources) Vitamin B12 Start: 09-03-2023 End: 03-22-2024 take 1 tablet by mouth once daily cyanocobalamin (B-12) 1000 MCG tablet Indications: Alissa ramesh Take 1 (one) tablet (1,000 mcg total) by mouth daily Reasons: Alissa ramesh. 90 tablet 1 02/11/2024 03/22/2024 Discontinued (Therapy completed) take 1 tablet by mouth once mike y cyanocobalamin 500 MCG tablet Take 1 tablet by mouth daily. Active zinc oxide 50 mg/ml topical cream (1 source) Start: 08-02-2024 End: 08-02-2024 zinc oxide 5 % Crea Apply 1 Application topically daily . 177.4 mL 08/02/2024 08/02/2024 Discontinued (Therapy completed) zonisamide 100 mg oral capsule (7 sources) Anti-epilepti c Agent Start: 07-23-2018 End: 09-07-2018 take 200 mg by mouth at bedtime Zonisamide 200 MG Oral Bedtime July 23, 2018 Discontinued Start: 07-23-2018 End: 09-07-2018 take 1 capsule by mouth at bedtime Zonisamide (Zonegran) 100 mg Capsule Discontinued 200 MG PO Bedtime July 23, 2018 1:00am September 07, 2018 3:00pm take 2 capsules by m outh once daily zonisamide (ZONEGRAN) 100 MG capsule Take 200 mg by mouth daily 0 Active (6 sources) Start: 04-01-2024 End: 04-01-2024 Start: 03-27-2024 End: 04-04-2024 [Order 1 Start] Name: insuli n lispro (AdmeLOG,HumaLOG) injection 0-15 Units Signed Summary: 0-15 Units, Subcutaneous, At bedtime, First dose on 03/27/24 at 2100, IF initial POC glucose is greater than 250, administer insulin as directed and re-check POC glucose no sooner than 2 hours after administration. THEN notify provider if POC glucose is still greater than 250., For nightly BG greater than 250, give: Half ( ) Corrective Scale, Nightly Prandial Snack Dosing Method: NO Snack Coverage - Corrective Scale ONLY, Nightly Insulin Dose Corrective Scale: FOLLOW DAYTIME Prandial Corrective Scale, Corrective Insulin Regimen (select desired scale to cover BG result): HIGH Resistance Scale, (REMINDER: Nightly Insulin Dose Corrective Scale will be automatically calculated to be of the daytime scale), Dose Reduction Threshold (at meals) for POC Blood Glucose less than or equal to: 80, For Downtime Calculator, use: Insulin SC NIGHTtime [Order 1 End] [Order 2 Start] Name: Notify physician Signed Summary: Routine, Until discontinued, Starting on Thu03/27/24 at 1016, Until Specified, Other: IF HS POC Glucose RE-CHECK Greater than 250, If initial HS POC glucose is greater than 250, administer insulin as directed and re-check POC glucose no sooner than 2 hours after administration. IF RE-CHECK POC glucose is still greater than 250, notify provider. [Order 2 End] Start: 03-25-2024 End: 04-04-2024 [Order 1 Start] Name: naloxo ne (NARCAN) injection 0.1 mg Signed Summary: 0.1 mg, Intravenous, As needed, opioid reversal, For respiratory rate less than or equal to 8 per minute., Starting on Thu03/25/24 at 0318, Mix nalOXone (NARCAN) 0.4 mg (1mL) with 9 mL of Normal Saline to total 10 mL. Administer 0.1 mg (2.5mL) IV Push every 2 minutes until respiratory rate is 10 or greater. [Order 1 End] [Order 2 Start] Name: Notify physician Signed Summary: STAT, Until discontinued, Starting on Thu03/25/24 at 0319, Until Specified, Respiratory rate less than: 8, For respiratory rate less than or equal to 8, notify physician and/or appropriate staff for additional orders. [Order 2 End] [Order 3 Start] Name: naloxone (NARCAN) injection 0.4 mg Signed Summary: 0.4 mg, Intravenous, As needed, opioid reversal, patient is pulseless, breathless, and unresponsive, Starting on Thu03/25/24 at 0318, Call a code first, then administer naloxone dose undiluted IV Push over 30 seconds. [Order 3 End] Start: 03-25-2024 End: 04-04-2024 [Order 1 Start] Name: Saline lock IV Signed Summary: Routine, Continuous, Starting on Thu03/25/24 at 0135, Until Specified [Order 1 End] [Order 2 Start] Name: sodium chloride (PF) (NS) flush 5 mL Signed Summary: 5 mL, Intravenous, As needed, line care, Starting on Thu03/25/24 at 0134 [Order 2 End] [Order 3 Start] Name: sodium chloride (PF) (NS) flush 5 mL Signed Summary: 5 mL, Intravenous, Every 8 hours scheduled, First dose on Thu03/25/24 at 0600, Saline lock [Order 3 End] [Order 4 Start] Name: sodium chloride 0.9% (NS) Signed Summary: 0-150 mL/hr, Intravenous, As needed, To flush line after IV infusions when no maintenance IV ordered or a compatibility issue. Infuse 20ml at the same rate as the secondary infusion, Starting on Thu03/25/24 at 0134, Run as Primary IV. NOT intended for KVO. [Order 4 End] Start: 03-24-2024 End: 03-25-2024 Start: 03-24-2024 End: 04-04-2024 [Order 1 Start] Name: Insert peripheral IV Signed Summary: SEKOU, Once, On Thu03/24/24 at 2024, For 1 occurrence [Order 1 End] [Order 2 Start] Name: Saline lock IV Signed Summary: SEKOU, Once, On Thu03/24/24 at 2024, For 1 occurrence [Order 2 End] [Order 3 Start] Name: sodium chloride (PF) (NS) flush 5 mL Signed Summary: 5 mL, Intravenous, As needed, line care, Starting on Thu03/24/24 at 2019 [Order 3 End] [Order 4 Start] Name: sodium chloride 0.9% (NS) Signed Summary: 0-150 mL/hr, Intravenous, As needed, To flush line after IV infusions when no maintenance IV ordered or a compatibility issue. Infuse 20ml at the same rate as the secondary infusion, Starting on Thu03/24/24 at 2019, Run as Primary IV. NOT intended for KVO. [Order 4 End] Problems Active Problems Problem Classification Problem Date Documented Da te Episodic/Chronic Acute and unspecified renal failure (2 sources) Acute injury of kidney; 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: [SOLO (acute kidney injury)] Onset: 5 12-07-2014 Acute bronchitis (1 source) Acute bronchitis; 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: [Acute bronchitis, unspecified] Onset: 2 Episodic Acute cerebrovascular disease (1 source) Lacunar infarction; 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: [Other cerebral infarction due to occlusion or stenosis of small artery] 09-16-2023 Chronic Adjustment disorders (1 source) Family tension; 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: [Reaction to severe stress, unspecified] Chronic Administrative/social admission (2 sources) Encounter for issue of repeat prescription; 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: [Drug seeking behavior ] Onset: 3 Episodic Anxiety disorders (20 sources) Anxiety; 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: [Psychogenic syncope] Onset: 8 08-05-2013 Chronic Blindness and vision defects (20 sources) Visual impairment; 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: [Unqualified visual loss, left eye, normal vision right eye] Onset: 3 05-17-2023 Chronic Cali (1 source) Burn Episodic Calculus of urinary tract (20 sources) Kidney stone 07-29-2021 Episodic Cardiac dysrhythmias (20 sources) Sustained ventricular tachycardia; 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: [Sinus node dysfunction] Onset: 2 01-23-2019 Chronic Cataract (1 source) Artificial lens present; 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: [Presence of intraocular lens] 11-09-2023 Chronic Chronic kidney disease (20 sources) Chronic kidney disease; 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: [Chronic kidney disease, unspecified] Onset: 4 10-13-2023 Chronic Chronic obstructive pulmonary disease and bronchiectasis (20 sources) Acute exacerbation of chronic obstructive airways disease; 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: [Chronic obstructive pulmonary disease with (acute) exacerbation] Onset: 2 Chronic Chronic ulcer of skin (10 sources) Non-pressure chronic ulcer of other part of left foot with unspecified severity; 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: [Non-pressure chronic ulcer of other part of right foot with fat layer exposed] Onset: 3 09-22-2023 Chronic Conduction disorders (20 sources) Cardiac pacemaker in situ; 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: [Presence of cardiac pacemaker] Onset: 5 12-03-2014 Chronic Congestive heart failure; nonhypertensive (17 sources) Heart failure; 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: [Heart failure, unspecified] Onset: 1 12-02-2021 Chronic Coronary atherosclerosis and other heart disease (2 sources) Coronary atherosclerosis; 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: [Atherosclerotic heart disease of lime coronary artery without angina pectoris] Onset: 2 Chronic Diabetes mellitus with complications (20 sources) Type II diabetes mellitus uncontrolled; 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: [Neuropathy due to diabetes mellitus] Onset: 5 Resolved: 5 06-04-2020 Chronic Diabetes mellitus without complication (20 sources) Type 2 diabetes mellitus; 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: [Diabetes mellitus] Onset: 5 12-03-2014 Chronic Diabetes mellitus without complication (20 sources) Hyperglycemia, unspecified; 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: [Insulin pump present] Onset: 7 Episodic Disorders of lipid metabolism (20 sources) Dyslipidemia; 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: [Hyperlipidemia] Onset: 7 01-19-2019 Chronic Epilepsy; convulsions (9 sources) Seizure disorder; 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: [Epilepsy, unspecified, not intractable, without status epilepticus] Onset: 6 05-25-2015 Chronic Epilepsy; convulsions (20 sources) Seizure; 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: [1 to 12 seizures a year] Onset: 9 Resolved: 3 06-04-2020 Episodic Comment on above: last [address] aring spells has been 6 last [address] aring spells has been 6 Esophageal disorders (20 sources) Gastroesophageal reflux disease; 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: [Gastroesophageal reflux disease without esophagitis] Onset: 2 01-22-2019 Chronic Essential hypertension (20 sources) Hypertensive disorder; 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: [Essential hypertension] Onset: 5 12-03-2014 Chronic Gastritis and duodenitis (2 sources) Gastritis; 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: [Gastritis, unspecified, without bleeding] Episodic Gastroduodenal ulcer (except hemorrhage) (20 sources) Gastric ulcer 01-14-2016 Chronic Genitourinary symptoms and ill-defined conditions (20 sources) Urinary incontinence; 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: [Unspecified urinary incontinence] Onset: 3 01-22-2019 Chronic Genitourinary symptoms and ill-defined conditions (20 sources) Dysuria; 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: [Personal history of urinary (tract) infections] Onset: 3 10-30-2021 Episodic Glaucoma (1 source) Ocular hypertension, left eye; 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: [Ocular hypertension] 11-09-2023 Chronic Headache; including migraine (1 source) Migraine, unspecified, not intractable, without status migrainosus; 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: [MIGRAINE UNS NOT INTRACT W/O SM] Onset: 2 Chronic Headache; including migraine (8 sources) Headache; including migraine; 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: [HEADACHE UNSPECIFIED] Onset: 3 Hypertension with complications and secondary hypertension (20 sources) Hypertensive heart failure; 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: [Hypertensive heart disease with heart failure] Onset: 1 12-02-2021 Chronic Infective arthritis and osteomyelitis (except that caused by tuberculosis or sexually transmitted disease) (20 sources) Osteomyelitis of forefoot; 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: [Osteomyelitis, unspecified] Onset: 4 03-25-2024 Chronic Menopausal disorders (1 source) Hormone replacement therapy; 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: [HORMONE REPLACEMENT THERAPY] Onset: 3 Episodic Miscellaneous mental health disorders (4 sources) Confusional state; 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] Onset: 9 Chronic Mood disorders (20 sources) Bipolar I disorder; 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: [Bipolar disorder] Onset: 9 06-04-2020 Chronic Mycoses (20 sources) Candidiasis; 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: [Candidiasis, unspecified] Onset: 4 08-05-2019 Episodic Neoplasms of unspecified nature or uncertain behavior (20 sources) Neoplasm of kidney 12-07-2013 Episodic Noninfectious gastroenteritis (1 source) Gastroenteritis; 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: [Noninfective gastroenteritis and colitis, unspecified] Episodic Nutritional deficiencies (20 sources) Vitamin D deficiency; 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: [Vitamin D deficiency, unspecified] Onset: 3 05-08-2023 Chronic Open wounds of extremities (3 sources) Laceration of finger without foreign body; 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: [Laceration without foreign body of left index finger without damage to nail, initial encounter] Onset: 2 Episodic Open wounds of head; neck; and trunk (2 sources) Unspecified open wound of abdominal wall, unspecified quadrant without penetration into peritoneal cavity, initial encounter; 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: [Wound dehiscence] Onset: 3 03-22-2024 Episodic Osteoarthritis (20 sources) Arthritis; 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: [Osteoarthritis] Onset: 2 07-29-2021 Chronic Other aftercare (2 sources) Long-term current use of insulin; 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: [senior care (current) use of insulin] Episodic Other aftercare (1 source) terminal system operator (current) use of aspirin; 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: [FPC CURRENT USE OF ASPIRIN] Onset: 3 Episodic Other aftercare (7 sources) senior care (current) use of insulin; 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: [DRAFTING DETAILER CURRENT USE OF INSULIN] Onset: 3 Episodic Other aftercare (3 sources) Other joint terminal attack controller (current) drug therapy; 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: [OTH [facility] CURRENT DRUG THERAPY] Onset: 3 Episodic Other aftercare (1 source) senior care (current) use of oral hypoglycemic drugs; 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: [DRAFTING DETAILER USE ORAL HYPOGLYCEMIC DX] Onset: 3 Episodic Other circulatory disease (2 sources) Device in situ; 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: [Presence of other vascular implants and grafts] Chronic Other circulatory disease (1 source) History of cardiac arrest; 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: [Personal history of sudden cardiac arrest] Onset: 2 Episodic Other circulatory disease (1 source) History of cerebrovascular disease; 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: [Personal history of other diseases of the circulatory system] Onset: 2 Episodic Other circulatory disease (1 source) History of transient ischemic attack; 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: [Personal history of transient ischemic attack (TIA), and cerebral infarction without residual deficits] Onset: 2 Episodic Other connective tissue disease (20 sources) Plantar fasciitis 07-14-2017 Episodic Other connective tissue disease (1 source) Plantar fascial fibromatosis; 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: [Plantar fascial fibromatosis] Onset: 2 Episodic Other connective tissue disease (2 sources) Recurrent falls ; 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: [Repeated falls] Episodic Other connective tissue disease (3 sources) Pain in toe; 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: [Pain in left toe(s)] 08-20-2022 Episodic Other connective tissue disease (8 sources) Pain in left toe(s); 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: [Pain in limb] Onset: 3 08-22-2022 Episodic Other connective tissue disease (1 source) Musculoskeletal symptom; 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: [Other symptoms and signs involving the musculoskeletal system] Onset: 3 Episodic Other connective tissue disease (1 source) Muscle weakness of limb; 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: [Other symptoms and signs involving the musculoskeletal system] Episodic Other connective tissue disease (1 source) Fibromyalgia; 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: [FIBROMYALGIA] Onset: 3 Episodic Other connective tissue disease (3 sources) Neuralgia and neuritis, unspecified; 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: [NEURALGIA AND NEURITIS UNSPECIFIED] Onset: 3 Episodic Other connective tissue disease (20 sources) Disorder of lower extremity; 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: [Other muscle spasm] Onset: 3 05-06-2023 Episodic Other connective tissue disease (1 source) Pain of left lower leg; 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: [Pain in left lower leg] 08-26-2023 Episodic Other connective tissue disease (2 sources) Pain in left lower leg; 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: [Pain in left lower leg] Onset: 4 Episodic Other ear and sense organ disorders (1 source) Hearing loss in left ear; 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: [Unspecified hearing loss, left ear] 09-16-2023 Chronic Other eye disorders (1 source) Staring Chronic Other eye disorders (1 source) Disorder of lacrimal gland; 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: [Dry eye syndrome of bilateral lacrimal glands] 11-09-2023 Episodic Other gastrointestinal disorders (20 sources) Diarrhea; 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: [Diarrhea, unspecified] Onset: 6 10-30-2021 Episodic Other gastrointestinal disorders (2 sources) Dysphagia; 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: [Dysphagia, unspecified] Episodic Other gastrointestinal disorders (4 sources) Constipation, unspecified; 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: [CONSTIPATION UNSPECIFIED] Onset: 3 Episodic Other hereditary and degenerative nervous system conditions (20 sources) Restless legs; 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: [Restless legs syndrome] Onset: 2 12-02-2021 Chronic Other hereditary and degenerative nervous system conditions (1 source) Restless legs syndrome; 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: [RESTLESS LEGS SYNDROME] Onset: 3 Chronic Other infections (4 sources) Personal history of Methicillin resistant Staphylococcus aureus infection; 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: [History of MRSA infection] Onset: 5 12-05-2014 Episodic Other injuries and conditions due to external causes (1 source) Systemic inflammatory response syndrome; 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: [Systemic inflammatory response syndrome (SIRS) of non-infectious origin without acute organ dysfunction] 03-25-2024 Episodic Other lower respiratory disease (20 sources) Cough; 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: [Subacute cough] Onset: 0 08-05-2013 Episodic Other lower respiratory disease (1 source) Pleuritic pain; 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: [Pleurodynia] 02-11-2024 Episodic Other nervous system disorders (20 sources) Chronic pain; 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: [Other chronic pain] Onset: 2 Chronic Other nervous system disorders (2 sources) Neuropathy; 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: [Polyneuropathy, unspecified] Chronic Other nervous system disorders (18 sources) Polyneuropathy Onset: 2 12-02-2021 Chronic Other nervous system disorders (1 source) Disorder of brain; 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: [Encephalopathy, unspecified] Onset: 2 Chronic Other nervous system disorders (7 sources) Other chronic pain; 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: [OTHER CHRONIC PAIN] Onset: 3 Chronic Other nervous system disorders (20 sources) Chronic pain syndrome; 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: [Chronic pain syndrome] Onset: 4 09-10-2023 Chronic Other nervous system disorders (1 source) Chronic pain syndrome; 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: [Chronic pain syndrome] Onset: 4 Chronic Other nervous system disorders (5 sources) Abnormal gait; 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: [Unspecified abnormalities of gait and mobility] 09-09-2018 Episodic Other nervous system disorders (1 source) H/O: brain disorder Episodic Other nervous system disorders (1 source) Skin sensation disturbance; 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: [Anesthesia of skin] Episodic Other non-traumatic joint disorders (20 sources) Ankle instability 11-05-2018 Episodic Other non-traumatic joint disorders (20 sources) Instability of joint of left ankle; 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: [Other instability, left ankle] Onset: 2 Episodic Other non-traumatic joint disorders (20 sources) Pain in right knee; 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: [Pain in joint, lower leg] Onset: 4 02-04-2023 Episodic Other non-traumatic joint disorders (4 sources) Pain in left knee; 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: [Pain in left knee] Onset: 4 Episodic Other nutritional; endocrine; and metabolic disorders (6 sources) Hypomagnesemia; 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: [Disorders of magnesium metabolism] Onset: 8 08-20-2022 Chronic Other nutritional; endocrine; and metabolic disorders (20 sources) Obesity; 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: [Obesity, unspecified] Onset: 2 10-21-2017 Chronic Other nutritional; endocrine; and metabolic disorders (20 sources) Morbid obesity; 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: [Morbid (severe) obesity due to excess calories] Onset: 2 Chronic Other nutritional; endocrine; and metabolic disorders (20 sources) Body mass index 40+ - severely obese; 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: [Body mass index (BMI) 45.0-49.9, adult] Onset: 2 Chronic Other nutritional; endocrine; and metabolic disorders (2 sources) Obese class II; 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: [Body mass index (BMI) 36.0-36.9, adult] Chronic Other nutritional; endocrine; and metabolic disorders (1 source) 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; 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: [Lactose intolerance, unspecified] Onset: 2 Chronic Other nutritional; endocrine; and metabolic disorders (15 sources) Intolerance to lactose 12-12-2021 Chronic Other nutritional; endocrine; and metabolic disorders (5 sources) Hypomagnesemia; 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: [Hypomagnesemia] Onset: 2 Chronic Other nutritional; endocrine; and metabolic disorders (3 sources) Hypophosphatemia; 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: [Other disorders of phosphorus metabolism] 08-21-2022 Chronic Other nutritional; endocrine; and metabolic disorders (4 sources) Other disorders of phosphorus metabolism; 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: [Disorders of phosphorus metabolism] Onset: 3 08-22-2022 Chronic Other nutritional; endocrine; and metabolic disorders (1 source) Morbid (severe) obesity due to excess calories; 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: [MORBID SEVERE OBES D/T EXCESS MARQUITA] Onset: 3 Chronic Other nutritional; endocrine; and metabolic disorders (1 source) Body mass index (BMI) 45.0-49.9, adult; 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: [BODY MASS INDEX BMI 45.0-49.9 ADULT] Onset: 3 Chronic Other nutritional; endocrine; and metabolic disorders (1 source) Body mass index (BMI) 40.0-44.9, adult; 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: [BODY MASS INDEX BMI 40.0-44.9 ADULT] Onset: 3 Chronic Other nutritional; endocrine; and metabolic disorders (2 sources) Severe obesity; 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: [Morbid (severe) obesity due to excess calories] Onset: 7 08-25-2022 Chronic Other screening for suspected conditions (not mental disorders or infectious disease) (20 sources) Abnormal quantity of physiologic substance; 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: [Culture positive for methicillin resistant Staphylococcus aureus] Onset: 5 04-26-2016 Episodic Comment on above: 2015- armpit and chi n- treated at [facility] in [place] 2014- armpit and chi n- treated at [facility] in [place] Other skin disorders (3 sources) Ingrowing nail; 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: [Ingrowing nail] 08-20-2022 Episodic Other skin disorders (4 sources) Ingrowing nail; 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: [Ingrowing nail] Onset: 3 08-22-2022 Episodic Otitis media and related conditions (3 sources) Acute suppurative otitis media without spontaneous rupture of ear drum; 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: [Acute suppurative otitis media without spontaneous rupture of ear drum, left ear] 05-08-2023 Episodic Paralysis (1 source) Left hemiparesis Chronic Peripheral and visceral atherosclerosis (8 sources) Peripheral vascular disease; 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: [Peripheral vascular disease, unspecified] Onset: 3 08-21-2022 Chronic Residual codes; unclassified (20 sources) Obstructive sleep apnea syndrome; 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: [Obstructive sleep apnea (adult) (pediatric)] Onset: 2 07-29-2021 Chronic Residual codes; unclassified (20 sources) Sleep apnea 01-14-2016 Chronic Residual codes; unclassified (1 source) Insomnia; 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: [Other insomnia] Chronic Residual codes; unclassified (1 source) Sleep apnea, unspecified; 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: [SLEEP APNEA UNSPECIFIED] Onset: 3 Chronic Residual codes; unclassified (6 sources) Noncompliance with medication regimen; 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: [Patient's other noncompliance with medication regimen] Onset: 2 Episodic Residual codes; unclassified (1 source) Altered mental status Episodic Residual codes; unclassified (5 sources) Pain; 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: [Pain, unspecified] 09-07-2018 Episodic Residual codes; unclassified (20 sources) Chronic back pain 07-29-2021 Episodic Residual codes; unclassified (2 sources) Problem situation; 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: [Other problems related to lifestyle] Onset: 2 Episodic Residual codes; unclassified (20 sources) Electronic cigarette user 10-30-2021 Episodic Residual codes; unclassified (1 source) Procedure carried out on subject; 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: [Encounter for prophylactic measures, unspecified] Onset: 2 Episodic Residual codes; unclassified (1 source) H/O: Disorder; 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: [Personal history of other specified conditions] Onset: 2 Episodic Residual codes; unclassified (4 sources) Staring; 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: [Transient alteration of awareness] 09-06-2018 Episodic Residual codes; unclassified (1 source) Pain, unspecified; 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: [Pain, unspecified] Onset: 3 Episodic Residual codes; unclassified (1 source) Acquired absence of other specified parts of digestive tract; 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: [ACQ ABSENCE OTH PART DIGESTV TRACT] Onset: 3 Episodic Retinal detachments; defects; vascular occlusion; and retinopathy (20 sources) Retinal edema; 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: [Hemorrhage of left retina] Onset: 4 Chronic Schizophrenia and other psychotic disorders (20 sources) Schizophrenia; 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: [Schizophrenia, unspecified] Onset: 2 12-02-2021 Chronic Screening and history of mental health and substance abuse codes (1 source) Personal history of nicotine dependence; 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: [PERSONAL HISTORY OF NICOTINE DEPEND] Onset: 3 Episodic Spondylosis; intervertebral disc disorders; other back problems (20 sources) Degeneration of lumbar intervertebral disc; 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: [Other intervertebral disc degeneration, lumbar region] Onset: 4 12-09-2023 Chronic Spondylosis; intervertebral disc disorders; other back problems (20 sources) Sciatica; 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: [Neck pain] Onset: 9 12-07-2013 Episodic Sprains and strains (4 sources) Injury of thigh; 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: [Strain of muscle, fascia and tendon of the posterior muscle group at thigh level, right thigh, initial encounter] Onset: 5 02-09-2023 Episodic Substance-related disorders (20 sources) Nicotine dependence; 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: [Smoker] Onset: 2 11-04-2021 Chronic Comment on above: Added secondary to d ocumentation in Social History. Superficial injury; contusion (5 sources) Contusion of lower back and pelvis, initial encounter; 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: [Contusion of left knee] Onset: 2 Episodic Thyroid disorders (20 sources) Hypothyroidism; 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: [Hypothyroidism, unspecified] Onset: 7 01-22-2019 Chronic Unclassified (3 sources) Suspected infectious disease; 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: [MRSA (methicillin-resistant Staph aureus) carrier/suspected carrier] Onset: 5 12-01-2014 Unclassified (1 source) NICOTINE DEPEND CIGARETTES UNCOMP Onset: 9 Unclassified (1 source) OTH DRAFTING DETAILER CURRENT DRUG THERAPY Onset: 9 Unclassified (1 source) TYPE 2 DM WITHOUT COMPLICATIONS Onset: 9 Unclassified (1 source) [facility] CURRENT USE OF INSULIN Onset: 9 Unclassified (1 source) [facility] USE ORAL HYPOGLYCEMIC DX Onset: 9 Unclassified (1 source) DRAFTING DETAILER CURRENT USE OF ASPIRIN Onset: 9 Unclassified (20 sources) Patient encounter status 08-22-2021 Unclassified (18 sources) Pain of joint of knee Onset: 2 12-02-2021 Unclassified (1 source) Local infection of the skin and subcutaneous tissue, unspecified; 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: [Local infection of the skin and subcutaneous tissue, unspecified] Onset: 3 Unclassified (1 source) CONTACT W/AND (SUSP) EXPOS COVID-19; 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: [CONTACT W/AND (SUSP) EXPOS COVID-19] Onset: 3 Unclassified (4 sources) COUGH, UNSPECIFIED; 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: [COUGH, UNSPECIFIED] Onset: 3 Unclassified (1 source) LOW BACK PAIN, UNSPECIFIED; 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: [LOW BACK PAIN, UNSPECIFIED] Onset: 3 Unclassified (1 source) Finding of sensation of abdomen 03-22-2024 Unclassified (1 source) Chronic pain of both knees 08-05-2024 Unclassified (1 source) Low back pain, unspecified; 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: [Low back pain, unspecified] Onset: 5 Unclassified (2 sources) eye problem Onset: 4 Unclassified (1 source) Other intervertebral disc degeneration, lumbar region without mention of lumbar back pain or lower extremity pain; 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: [Other intervertebral disc degeneration, lumbar region without mention of lumbar back pain or lower extremity pain] Onset: 4 Unclassified (1 source) Other intervertebral disc degeneration, lumbar region with discogenic back pain only; 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: [Other intervertebral disc degeneration, lumbar region with discogenic back pain only] Onset: 4 Unclassified (1 source) Disruption or dehiscence of closure of internal operation (surgical) wound of abdominal wall muscle or fascia, initial encounter; 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: [Disruption or dehiscence of closure of internal operation (surgical) wound of abdominal wall muscle or fascia, initial encounter] Onset: 4 Unclassified (1 source) Cough, unspecified; 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: [Cough, unspecified] Onset: 4 Unclassified (1 source) Subacute cough; 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: [Subacute cough] Onset: 4 Viral infection (20 sources) Human papilloma virus infection 11-14-2013 Episodic Past or Other Problems Problem Classification Problem Date Documented Da te Episodic/Chronic Abdominal pain (20 sources) Right lower quadrant pain; 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: [Lower abdominal pain] Onset: 02-04-2008 Resolved: 02-03-2009 10-30-2021 Episodic Acute and unspecified renal failure (20 sources) Acute kidney failure, unspecified; 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: [Acute injury of kidney] Onset: 12-03-2014 Resolved: 05-06-2023 12-07-2014 Episodic Bacterial infection; unspecified site (20 sources) Other bacterial infections of unspecified site; 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: [History of methicillin resistant Staphylococcus aureus infection] Onset: 11-30-2014 Resolved: 05-06-2023 08-05-2019 Episodic Blindness and vision defects (5 sources) Eye / vision finding; 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: [Unspecified visual disturbance] Onset: 05-25-2015 05-25-2015 Episodic Cardiac dysrhythmias (20 sources) Palpitations; 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: [Bradycardia] Onset: 01-30-2012 11-05-2018 Episodic Complications of surgical procedures or medical care (20 sources) Wound dehiscence; 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: [Abdominal wound dehiscence, initial encounter] Onset: 03-22-2024 Resolved: 08-05-2024 03-22-2024 Episodic Conditions associated with dizziness or vertigo (20 sources) Dizziness; 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: [Dizziness and giddiness] Onset: 01-01-2022 11-14-2020 Episodic E Codes: Fall (1 source) Unspecified fall, initial encounter; 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: [UNSPECIFIED FALL INITIAL ENCOUNTER] Onset: 12-02-2021 Episodic Fluid and electrolyte disorders (20 sources) Metabolic acidosis, normal anion gap (NAG); 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: [Hypokalemia] Onset: 12-03-2014 Resolved: 05-06-2023 12-03-2014 Episodic Headache; including migraine (20 sources) Headache; 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: [Headache] Onset: 02-16-2008 11-14-2020 Episodic Immunizations and screening for infectious disease (20 sources) Contact with and (suspected) exposure to other viral communicable diseases; 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: [Carrier or suspected carrier of Methicillin resistant Staphylococcus aureus] Onset: 12-01-2014 Resolved: 05-06-2023 Episodic Intestinal infection (1 source) Viral intestinal infection, unspecified; 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: [VIRAL INTESTINAL INFECTION UNSPEC] Onset: 04-24-2022 Episodic Malaise and fatigue (20 sources) Left hemiparesis; 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: [Weakness] Onset: 03-04-2022 09-08-2018 Episodic Medical examination/evaluation (1 source) Encounter for preprocedural cardiovascular examination; 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: [Encounter for preprocedural cardiovascular examination] Onset: 07-17-2017 Episodic Mood disorders (16 sources) Mood disorders Onset: 03-29-2024 03-29-2024 Nausea and vomiting (10 sources) Nausea; 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: [Nausea] Onset: 02-04-2008 Resolved: 02-03-2009 05-25-2015 Episodic Nonspecific chest pain (20 sources) Chest pain, unspecified; 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: [Other chest pain] Onset: 02-16-2017 Resolved: 05-06-2023 Episodic Nutritional deficiencies (20 sources) Cobalamin deficiency; 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: [Deficiency of other specified B group vitamins] Onset: 05-08-2023 05-08-2023 Episodic Other aftercare (1 source) 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; 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: [[facility] ANTITHROMBOT/ANTIPLAT LETS] Onset: 04-02-2022 Episodic Other aftercare (20 sources) Long-term current use of drug therapy; 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: [Encounter for therapeutic drug level monitoring] Onset: 05-13-2024 Resolved: 08-05-2024 05-13-2024 Episodic Other aftercare (2 sources) Encounter for therapeutic drug level monitoring; 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: [Encounter for therapeutic drug level monitoring] Onset: 05-13-2024 Episodic Other aftercare (2 sources) senior care (current) use of opiate analgesic; 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: [senior care (current) use of opiate analgesic] Onset: 05-13-2024 Episodic Other circulatory disease (1 source) Personal history of other diseases of the circulatory system; 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: [Personal history of other diseases of the circulatory system] Onset: 02-16-2017 Episodic Other circulatory disease (20 sources) History of cerebrovascular accident; 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: [Personal history of transient ischemic attack (TIA), and cerebral infarction without residual deficits] Onset: 05-17-2023 05-17-2023 Episodic Other connective tissue disease (20 sources) Fibromyalgia; 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: [Fibromyalgia] Onset: 09-09-2021 12-02-2021 Episodic Other connective tissue disease (1 source) Myalgia, unspecified site; 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: [MYALGIA UNSPECIFIED SITE] Onset: 07-14-2022 Episodic Other connective tissue disease (20 sources) Spasm; 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: [Other muscle spasm] Onset: 05-06-2023 09-07-2023 Episodic Other connective tissue disease (20 sources) Myofascial pain syndrome; 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: [Myalgia, other site] Onset: 05-13-2024 12-09-2023 Episodic Other connective tissue disease (2 sources) Other specified soft tissue disorders; 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: [Other specified soft tissue disorders] Onset: 05-23-2024 Episodic Other connective tissue disease (2 sources) Other muscle spasm; 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: [Other muscle spasm] Onset: 05-06-2023 Episodic Other ear and sense organ disorders (2 sources) Otalgia, left ear; 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: [Otalgia, unspecified] Onset: 02-23-2009 Resolved: 03-15-2009 03-15-2009 Episodic Other female genital disorders (2 sources) Polyp of corpus uteri; 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: [Polyp of corpus uteri] Onset: 02-23-2009 02-23-2009 Episodic Other gastrointestinal disorders (6 sources) Diarrhea, unspecified; 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: [DIARRHEA UNSPECIFIED] Onset: 04-20-2022 Episodic Other gastrointestinal disorders (20 sources) Incontinence of feces; 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: [Full incontinence of feces] Onset: 05-06-2023 05-06-2023 Episodic Other injuries and conditions due to external causes (2 sources) Systemic inflammatory response syndrome (SIRS) of non-infectious origin without acute organ dysfunction; 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: [Systemic inflammatory response syndrome (sirs) of non-infectious origin without acute organ dysfunction] Onset: 03-24-2024 Episodic Other lower respiratory disease (2 sources) Finding of respiration; 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: [Other forms of dyspnea] Onset: 03-17-2008 Resolved: 02-03-2009 02-03-2009 Episodic Other lower respiratory disease (2 sources) Pleurodynia; 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: [Pleurodynia] Onset: 02-11-2024 Episodic Other nervous system disorders (3 sources) Anesthesia of skin; 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: [ANESTHESIA OF SKIN] Onset: 03-31-2022 Episodic Other non-traumatic joint disorders (2 sources) Arthralgia of the ankle and/or foot; 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: [Pain in unspecified ankle and joints of unspecified foot] Onset: 03-17-2008 Resolved: 02-03-2009 02-03-2009 Episodic Other nutritional; endocrine; and metabolic disorders (1 source) Personal history of other endocrine, nutritional and metabolic disease; Translations: [Personal history of other endocrine, nutritional and metabolic disease] Onset: 02-16-2017 Episodic Other nutritional; endocrine; and metabolic disorders (20 sources) Weight gain; Translations: [Abnormal weight gain] Onset: 05-17-2023 Resolved: 02-11-2024 05-17-2023 Episodic Other nutritional; endocrine; and metabolic disorders (20 sources) Weight increased; Translations: [Abnormal weight gain] Onset: 05-17-2023 Resolved: 02-11-2024 02-11-2024 Episodic Other skin disorders (20 sources) Disorder of skin pigmentation; Translations: [Disorder of pigmentation, unspecified] Onset: 03-22-2024 02-11-2024 Episodic Other upper respiratory infections (4 sources) Acute upper respiratory infection, unspecified; Translations: [Upper respiratory infection] Onset: 08-18-2022 12-10-2023 Episodic Residual codes; unclassified (20 sources) Insomnia; Translations: [Insomnia, unspecified] Onset: 05-06-2023 08-05-2013 Episodic Residual codes; unclassified (1 source) Procedure and treatment not carried out because of patient's decision for other reasons; Translations: [PROC AND TX NOT CARRIED OUT PT OTH RSN] Onset: 04-02-2022 Episodic Residual codes; unclassified (1 source) Acquired absence of both cervix and uterus; Translations: [ACQUIRED ABSENCE BOTH CERVIX AND UTERUS] Onset: 01-06-2022 Episodic Residual codes; unclassified (1 source) Patient's noncompliance with other medical treatment and regimen; Translations: [PT NONCOMPLIANCE OTH MED TX AND REGIMEN] Onset: 12-06-2021 Episodic Residual codes; unclassified (2 sources) Sleep disorder; Translations: [Sleep disorder, unspecified] Onset: 03-15-2009 03-15-2009 Episodic Residual codes; unclassified (2 sources) Noncompliance with treatment; Translations: [Noncompliance] Onset: 03-31-2017 03-31-2017 Episodic Residual codes; unclassified (20 sources) Family history of disorder of lung; Translations: [Family history of other diseases of the respiratory system] Onset: 09-03-2023 09-03-2023 Episodic Residual codes; unclassified (20 sources) Family history of dementia; Translations: [Family history of other mental and behavioral disorders] Onset: 09-03-2023 09-03-2023 Episodic Residual codes; unclassified (2 sources) Family history of other diseases of the respiratory system; Translations: [Family history of other diseases of the respiratory system] Onset: 09-03-2023 Episodic Septicemia (20 sources) Sepsis; Translations: [Bacteremia caused by Gram-positive bacteria] Onset: 12-03-2014 Resolved: 12-07-2014 12-07-2014 Episodic Skin and subcutaneous tissue infections (20 sources) Cellulitis of chin ; Translations: [Abscess of chin] Onset: 11-30-2014 Resolved: 05-06-2023 12-07-2014 Episodic Syncope (20 sources) Syncope and collapse; Translations: [Syncope] Onset: 12-15-2011 11-05-2018 Episodic Unclassified (1 source) Family history of ischemic heart disease and other diseases of the circulatory system; Translations: [Family history of ischemic heart disease and other diseases of the circulatory system] Onset: 02-16-2017 Episodic Unclassified (20 sources) Bipolar (qualifier value) 10-09-2021 Unclassified (2 sources) COUGH, UNSPECIFIED; Translations: [COUGH, UNSPECIFIED] Onset: 07-30-2022 Unclassified (1 source) Onset: 08-26-2023 08-26-2023 Unclassified (1 source) Low back pain, unspecified; Translations: [Low back pain, unspecified] Onset: 09-23-2024 Unclassified (1 source) Other intervertebral disc degeneration, lumbar region without mention of lumbar back pain or lower extremity pain; Translations: [Other intervertebral disc degeneration, lumbar region without mention of lumbar back pain or lower extremity pain] Onset: 09-23-2024 Unclassified (1 source) Other intervertebral disc degeneration, lumbar region with discogenic back pain only; Translations: [Other intervertebral disc degeneration, lumbar region with discogenic back pain only] Onset: 08-02-2024 Unclassified (1 source) Disruption or dehiscence of closure of internal operation (surgical) wound of abdominal wall muscle or fascia, initial encounter; Translations: [Disruption or dehiscence of closure of internal operation (surgical) wound of abdominal wall muscle or fascia, initial encounter] Onset: 03-22-2024 Unclassified (1 source) Subacute cough; Translations: [Subacute cough] Onset: 10-13-2023 Urinary tract infections (20 sources) Acute cystitis with hematuria; Translations: [Urinary tract infectious disease] Onset: 02-16-2017 Episodic Viral infection (1 source) COVID-19 Onset: 06-14-2021 Resolved: 06-14-2021 Results Test Name Value Interpretation Reference Range Facility XR LUMBAR SPINE 2-3 VIEWS (S TANDARD)on 09-23-2024 XR LUMBAR SPINE 2-3 VIEWS (STANDARD) Normal [facility] Comment on above: Order Comment: Stand ing AND AP LateralInjury/Trauma or Illness?:Illness/OtherHow long have you had these symptoms (acute/chronic)?:UnknownReason for exam?:Lumbar painHistory of cancer?:uSurgeries, chemotherapy, or radiation?:pacemakerType of Exam?:UnknownAdditional signs and symptoms?:none BASIC METABOLIC PANELon Anion gap [Moles/Vol] 20 mmol/L Normal 03-13 [facility] Comment on above: Order Comment: [facility] has implemented the eGFR calculation approach that does not have a coefficient for race that conforms to the NKF-ASN Task Force Recommendations. Performed By: #### [id number] ####[facility] [address] [place], [place] [address] Abbi Choudhary M.D. [id number] Calcium [Mass/Vol] 8.9 mg/dL Normal 8.4-10.2 [facility] Comment on above: Order Comment: [facility] has implemented the eGFR calculation approach that does not have a coefficient for race that conforms to the NKF-ASN Task Force Recommendations. Performed By: #### [id number] ####[facility] [address] [place], [place] [address] Abbi Choudhary M.D. [id number] Chloride [Moles/Vol] 97 mmol/L Low 98-108 [facility] Comment on above: Order Comment: [facility] has implemented the eGFR calculation approach that does not have a coefficient for race that conforms to the NKF-ASN Task Force Recommendations. Performed By: #### [id number] ####[facility] [address], [place] [address] Abbi Choudhary M.D. [id number] Creatinine [Mass/Vol] 1.71 mg/dL High 0.40-1.10 [facility] Comment on above: Order Comment: [facility] has implemented the eGFR calculation approach that does not have a coefficient for race that conforms to the NKF-ASN Task Force Recommendations. Performed By: #### [id number] ####[facility] [address] [place], [place] [address] Abbi Choudhary M.D. [id number] EGFR 37 mL/min/1.73 m2 Low >=60 [facility] Comment on above: Order Comment: [facility] has implemented the eGFR calculation approach that does not have a coefficient for race that conforms to the NKF-ASN Task Force Recommendations. Result Comment: Lorie mated GFR was calculated using the 2020 CKD-EPI creatinine equation. Performed By: #### [id number] ####[facility] [address], [place] [address] Abbi Choudhary M.D. [id number] Glucose [Mass/Vol] 468 mg/dL Off scale high 65-99 [facility] Comment on above: Order Comment: [facility] has implemented the eGFR calculation approach that does not have a coefficient for race that conforms to the NKF-ASN Task Force Recommendations. Performed By: #### [id number] ####[facility] [address] [place], [place] [address] Abbi Choudhary M.D. [id number] HCO3 (Bld) [Moles/Vol] 17 mmol/L Low 21-32 [facility] Comment on above: Order Comment: [facility] has implemented the eGFR calculation approach that does not have a coefficient for race that conforms to the NKF-ASN Task Force Recommendations. Performed By: #### [id number] ####[facility] [address] [place] [address] Abbi Choudhary M.D. [id number] Potassium [Moles/Vol] 4.0 mmol/L Normal 3.5-5.1 [facility] Comment on above: Order Comment: [facility] has implemented the eGFR calculation approach that does not have a coefficient for race that conforms to the NKF-ASN Task Force Recommendations. Performed By: #### [id number] ####[facility] [address] [place], [place] [address] Abbi Choudhary M.D. [id number] Sodium [Moles/Vol] 130 mmol/L Low 135-145 [facility] Comment on above: Order Comment: [facility] has implemented the eGFR calculation approach that does not have a coefficient for race that conforms to the NKF-ASN Task Force Recommendations. Performed By: #### [id number] ####[facility] [address] [place], [place] [address] Abbi Choudhary M.D. [id number] Urea nitrogen [Mass/Vol] 30 mg/dL High 8-25 [facility] Comment on above: Order Comment: [facility] has implemented the eGFR calculation approach that does not have a coefficient for race that conforms to the NKF-ASN Task Force Recommendations. Performed By: #### [id number] ####[facility] [address] [place], [place] [address] Abbi Choudhary M.D. [id number] Urea nitrogen/Creatinine [Mass ratio] 17.5 mg/mg Normal 10.0-20.0 [facility] Comment on above: Order Comment: [facility] has implemented the eGFR calculation approach that does not have a coefficient for race that conforms to the NKF-ASN Task Force Recommendations. Performed By: #### [id number] ####[facility] [address] [place] [address] Abbi Choudhary M.D. [id number] CBC WITH AUTO DIFFERENTIALon 09-22-2024 AUTO NRBC 0.0 % [facility] Comment on above: Performed By: #### L [id number] ####[facility] [address] [place] [address] Abbi Choudhary M.D. [id number] AUTO NRBC ABS COUNT 0.00 K/mcL Normal 0.00-0.00 [facility] Comment on above: Performed By: #### L [id number] ####[facility] [address] [place] [address] Abbi Choudhary M.D. [id number] BASOPHILS ABSOLUTE COUNT 0.05 K/mcL Normal 0.00-0.30 [facility] Comment on above: Performed By: #### L [id number] ####[facility] [address] [place] [address] Abbi Choudhary M.D. [id number] Basophils/100 WBC (Bld) 0.6 % Normal [facility] Comment on above: Performed By: #### L [id number] ####[facility] [address] [place] [address] Abbi Choudhary M.D. [id number] Eosinophils (Bld) [#/Vol] 0.08 10*3/uL Normal 0.00-0.50 [facility] Comment on above: Performed By: #### L [id number] ####[facility] [address] [place] [address] Abbi Choudhary M.D. [id number] Eosinophils/100 WBC (Bld) 0.9 % Normal [facility] Comment on above: Performed By: #### L [id number] ####[facility] [address] [place] [address] Abbi Choudhary M.D. [id number] Erythrocyte distribution width (RBC) [Ratio] 13.3 % Normal 11.6-14.8 [facility] Comment on above: Performed By: #### L [id number] ####[facility] [address] [place] [address] Abbi Choudhary M.D. [id number] Hematocrit (Bld) [Volume fraction] 35.3 % Low 36.0-46.0 [facility] Comment on above: Performed By: #### L [id number] ####[facility] [address] [place] [address] Abbi Choudhary M.D. [id number] Hemoglobin (Bld) [Mass/Vol] 12.1 g/dL Normal 12.0-16.0 [facility] Comment on above: Performed By: #### L [id number] ####[facility] [address] [place] [address] Abbi Choudhary M.D. [id number] IG ABSOLUTE 0.04 K/mcL Normal 0.00-0.30 [facility] Comment on above: Performed By: #### L [id number] ####[facility] [address] [place] [address] Abbi Choudhary M.D. [id number] IG PERCENT 0.40 % Normal [facility] Comment on above: Result Comment: The IG parameter is the percentage of metamyelocytes, myelocytes and promyelocytes. An immature granulocyte count (IG) of 1% or more suggests the possibility of infection, an IG count of 3% is very likely related to an infection. Performed By: #### L [id number] ####[facility] [address] [place] [address] Abbi Choudhary M.D. [id number] Lymphocytes (Bld) [#/Vol] 1.49 10*3/uL Normal 0.90-4.00 [facility] Comment on above: Performed By: #### L [id number] ####[facility] [address] [place] [address] Abbi Choudhary M.D. [id number] Lymphocytes/100 WBC (Bld) 16.7 % Normal [facility] Comment on above: Performed By: #### L [id number] ####[facility] [address] [place], [place] [address] Abbi Choudhary M.D. [id number] MCH (RBC) [Entitic mass] 30.5 pg Normal 26.0-34.0 [facility] Comment on above: Performed By: #### L [id number] ####[facility] [address] [place] [address] Abbi Choudhary M.D. [id number] MCV (RBC) [Entitic vol] 88.9 fL Normal 80.0-100.0 [facility] Comment on above: Performed By: #### L [id number] ####[facility] [address] [place] [address] Abbi Choudhary M.D. [id number] MEAN CORPUSCULAR HEMOGLOBIN CONC 34.3 g/dL Normal 31.0-37.0 [facility] Comment on above: Performed By: #### L [id number] ####[facility] [address] [place] [address] Abbi Choudhary M.D. [id number] Monocytes (Bld) [#/Vol] 0.41 10*3/uL Normal 0.30-0.90 [facility] Comment on above: Performed By: #### L [id number] ####[facility] [address] [place] [address] Abbi Choudhary M.D. [id number] Monocytes/100 WBC (Bld) 4.6 % Normal [facility] Comment on above: Performed By: #### L [id number] ####[facility] [address] [address] Abbi Choudhary M.D. [id number] NEUTROPHILS ABSOLUTE COUNT 6.83 K/mcL Normal 1.70-7.00 [facility] Comment on above: Performed By: #### L [id number] ####[facility] [address] [address] Abbi Choudhary M.D. [id number] Neutrophils/100 WBC (Bld) 76.8 % Normal [facility] Comment on above: Performed By: #### L [id number] ####[facility] [address] [address] Abbi Choudhary M.D. [id number] Platelet mean volume (Bld) [Entitic vol] 9.7 fL Normal 9.4-12.4 [facility] Comment on above: Performed By: #### L [id number] ####[facility] [address] [address] Abbi Choudhary M.D. [id number] Platelets (Bld) [#/Vol] 283 10*3/uL Normal 150-400 [facility] Comment on above: Performed By: #### L [id number] ####[facility] [address] [address] Abbi Choudhary M.D. [id number] RBC (Bld) [#/Vol] 3.97 10*6/uL Low 4.00-5.20 [facility] Comment on above: Performed By: #### L [id number] ####[facility] [address] [address] Abbi Choudhary M.D. [id number] WBC (Bld) [#/Vol] 8.90 10*3/uL Normal 4.50-11.00 [facility] Comment on above: Performed By: #### L [id number] ####[facility] [address] [address] Abbi Choudhary M.D. [id number] DRUGS OF ABUSE SCREEN, URINE on 09-22-2024 AMPHETAMINE SCREEN, URINE Not detected Normal None Detected [facility] Comment on above: Order Comment: Scree n results should be used for treatment purposes only. Result Comment: Urin e Amphetamine Cutoff: < 1000 ng/mL = None Detected Performed By: #### 4 6965 ####[facility] [address] [address] Abbi Choudhary M.D. [id number] BARBITURATE SCREEN URINE Not detected Normal None Detected [facility] Comment on above: Order Comment: Scree n results should be used for treatment purposes only. Result Comment: Urin e Barbiturates Cutoff: < 200 ng/mL = None Detected Performed By: #### 4 6965 ####[facility] [address] [address] Abbi Choudhary M.D. [id number] BENZODIAZEPINE SCREEN, URINE Not detected Normal None Detected [facility] Comment on above: Order Comment: Scree n results should be used for treatment purposes only. Result Comment: Urin e Benzodiazepine Cutoff: < 200 ng/mL = None Detected Performed By: #### 4 6965 ####[facility] [address] [address] Abbi Choudhary M.D. [id number] BUPRENORPHINE, URINE Not detected Normal None Detected [facility] Comment on above: Order Comment: Scree n results should be used for treatment purposes only. Result Comment: Urin e Buprenorphine Cutoff: < 5 ng/mL = None Detected Performed By: #### 4 6965 ####[facility] [address] [address] Abbi Choudhary M.D. [id number] CANNABINOID SCREEN URINE Not detected Normal None Detected [facility] Comment on above: Order Comment: Scree n results should be used for treatment purposes only. Result Comment: Urin e Cannabinoids Cutoff: < 50 ng/mL = None Detected Performed By: #### 4 6965 ####[facility] [address] [address] Abbi Choudhary M.D. [id number] COCAINE, SCREEN URINE Not detected Normal None Detected [facility] Comment on above: Order Comment: Scree n results should be used for treatment purposes only. Result Comment: Urin e Cocaine Cutoff: < 300 ng/mL = None Detected Performed By: #### 4 6965 ####[facility] [address] [address] Abbi Choudhary M.D. [id number] FENTANYL, URINE Not detected Normal None Detected [facility] Comment on above: Order Comment: Scree n results should be used for treatment purposes only. Result Comment: Urin e Fentanyl Cutoff: < 1 ng/mL = None Detected Performed By: #### 4 6965 ####[facility] [address] [place], [place] [address] Abbi Choudhary M.D. [id number] METHADONE SCREEN, URINE Not detected Normal None Detected [facility] Comment on above: Order Comment: Scree n results should be used for treatment purposes only. Result Comment: Urin e Methadone Cutoff: < 300 ng/mL = None Detected Performed By: #### 4 6965 ####[facility] [address] [place], [place] [address] Abbi Choudhary M.D. [id number] OPIATE SCREEN URINE Not detected Normal None Detected [facility] Comment on above: Order Comment: Scree n results should be used for treatment purposes only. Result Comment: Urin e Opiates Cutoff: < 300 ng/mL = None Detected Performed By: #### 4 6965 ####[facility] [address] [place], [place] [address] Abbi Choudhary M.D. [id number] OXYCODONE SCREEN, URINE Not detected Normal None Detected [facility] Comment on above: Order Comment: Scree n results should be used for treatment purposes only. Result Comment: Urin e Oxycodone Cutoff: < 100 ng/mL = None Detected Performed By: #### 4 6965 ####[facility] [address] [address] Abbi Choudhary M.D. [id number] ED Prov Noteon 09-22-2024 ED Prov Note Normal [facility] HEPATIC FUNCTION PANELon Albumin [Mass/Vol] 3.5 g/dL Normal 3.2-5.2 [facility] Comment on above: Performed By: #### 4 5866 ####[facility] [address] [place], [place] [address] Abbi Choudhary M.D. [id number] ALP [Catalytic activity/Vol] 107 U/L Normal 40-150 [facility] Comment on above: Performed By: #### 4 5866 ####[facility] [address] [place], [place] [address] Abbi Choudhary M.D. [id number] ALT [Catalytic activity/Vol] 11 U/L Normal 0-35 U/L [facility] Comment on above: Performed By: #### 4 5866 ####[facility] [address] [place], [place] [address] Abbi Choudhary M.D. [id number] AST [Catalytic activity/Vol] 12 U/L Normal 0-35 U/L [facility] Comment on above: Performed By: #### 4 5866 ####[facility] [address] [place], [place] [address] Abbi Choudhary M.D. [id number] Bilirubin [Mass/Vol] 0.3 mg/dL Normal 0.0-1.3 [facility] Comment on above: Performed By: #### 4 5866 ####[facility] [address] [address] Abbi Choudhary M.D. [id number] Bilirubin.indirect [Mass/Vol] 0.2 mg/dL Normal 0.0-0.4 [facility] Comment on above: Performed By: #### 4 5866 ####[facility] [address] [address] Abbi Choudhary M.D. [id number] Protein [Mass/Vol] 6.5 g/dL Normal 6.0-8.0 [facility] Comment on above: Performed By: #### 4 5866 ####[facility] [address] [place], [place] [address] Abbi Choudhary M.D. [id number] LEVETIRACETAM LEVELon 2024 LEVETIRACETAM < Low 6.0-46.0 [facility] Comment on above: Performed By: #### 4 7512 ####[facility] [address] Swapnil Brewer M.D. [id number] MORPHOLOGYon 09-22-2024 PLATELET ESTIMATE Normal Normal Normal [facility] Comment on above: Performed By: #### L [id number] ####[facility] [address] [place], [place] [address] Abbi Choudhary M.D. [id number] RBC MORPH SCAN Normal Normal [facility] Comment on above: Result Comment: RBC Indices confirmed with manual peripheral smear review. Performed By: #### L [id number] ####[facility] [address] [place], [place] [address] Abbi Choudhary M.D. [id number] URINALYSISon 09-22-2024 BACTERIA, URINE Few Abnormal None Seen [facility] Comment on above: Order Comment: Micro scopic examination is performed on all urinalysis samples and only positive findings are reported. The test for blood on the chemical analytic portion of urinalysis may also be positive due to hemoglobinuria and myoglobinuria and if red blood cells are present they are quantified by microscopic examination. Performed By: #### 4 6625 ####[facility] [address] [place], [place] [address] Abbi Choudhary M.D. [id number] BILIRUBIN, URINE Negative Normal Negative [facility] Comment on above: Order Comment: Micro scopic examination is performed on all urinalysis samples and only positive findings are reported. The test for blood on the chemical analytic portion of urinalysis may also be positive due to hemoglobinuria and myoglobinuria and if red blood cells are present they are quantified by microscopic examination. Performed By: #### 4 6625 ####[facility] [address] [place], [place] [address] Abbi Choudhary M.D. [id number] BLOOD, URINE Small Abnormal Negative [facility] Comment on above: Order Comment: Micro scopic examination is performed on all urinalysis samples and only positive findings are reported. The test for blood on the chemical analytic portion of urinalysis may also be positive due to hemoglobinuria and myoglobinuria and if red blood cells are present they are quantified by microscopic examination. Performed By: #### 4 6625 ####[facility] [address] [place], [place] [address] Abbi Choudhary M.D. [id number] Clarity (U) Hazy Abnormal Clear [facility] Comment on above: Order Comment: Micro scopic examination is performed on all urinalysis samples and only positive findings are reported. The test for blood on the chemical analytic portion of urinalysis may also be positive due to hemoglobinuria and myoglobinuria and if red blood cells are present they are quantified by microscopic examination. Performed By: #### 4 6625 ####[facility] [address] [place], [place] [address] Abbi Choudhary M.D. [id number] Color (U) Yellow Normal Colorless, Yellow [facility] Comment on above: Order Comment: Micro scopic examination is performed on all urinalysis samples and only positive findings are reported. The test for blood on the chemical analytic portion of urinalysis may also be positive due to hemoglobinuria and myoglobinuria and if red blood cells are present they are quantified by microscopic examination. Performed By: #### 4 6625 ####[facility] [address] [place], [place] [address] Abbi Choudhary M.D. [id number] Glucose Ql (U) >=500 Abnormal Negative [facility] Comment on above: Order Comment: Micro scopic examination is performed on all urinalysis samples and only positive findings are reported. The test for blood on the chemical analytic portion of urinalysis may also be positive due to hemoglobinuria and myoglobinuria and if red blood cells are present they are quantified by microscopic examination. Performed By: #### 4 6625 ####[facility] [address] [place], [place] [address] Abbi Choudhary M.D. [id number] Hyaline casts LM Ql (Urine sed) 0-2 Normal 0-2 [facility] Comment on above: Order Comment: Micro scopic examination is performed on all urinalysis samples and only positive findings are reported. The test for blood on the chemical analytic portion of urinalysis may also be positive due to hemoglobinuria and myoglobinuria and if red blood cells are present they are quantified by microscopic examination. Performed By: #### 4 6625 ####[facility] [address] [place], [place] [address] Abbi Choudhary M.D. [id number] Ketones Ql (U) Negative Normal Negative [facility] Comment on above: Order Comment: Micro scopic examination is performed on all urinalysis samples and only positive findings are reported. The test for blood on the chemical analytic portion of urinalysis may also be positive due to hemoglobinuria and myoglobinuria and if red blood cells are present they are quantified by microscopic examination. Performed By: #### 4 6625 ####[facility] [address] [place], [place] [address] Abbi Choudhary M.D. [id number] Leukocyte esterase Test strip Ql (U) Negative Normal Negative [facility] Comment on above: Order Comment: Micro scopic examination is performed on all urinalysis samples and only positive findings are reported. The test for blood on the chemical analytic portion of urinalysis may also be positive due to hemoglobinuria and myoglobinuria and if red blood cells are present they are quantified by microscopic examination. Performed By: #### 4 6625 ####[facility] [address] [place], [place] [address] Abbi Choudhary M.D. [id number] NITRITE, URINE Negative Normal Negative [facility] Comment on above: Order Comment: Micro scopic examination is performed on all urinalysis samples and only positive findings are reported. The test for blood on the chemical analytic portion of urinalysis may also be positive due to hemoglobinuria and myoglobinuria and if red blood cells are present they are quantified by microscopic examination. Performed By: #### 4 6625 ####[facility] [address] [place], [place] [address] Abbi Choudhary M.D. [id number] pH (U) 5.0 [pH] Normal 5.0-7.0 [facility] Comment on above: Order Comment: Micro scopic examination is performed on all urinalysis samples and only positive findings are reported. The test for blood on the chemical analytic portion of urinalysis may also be positive due to hemoglobinuria and myoglobinuria and if red blood cells are present they are quantified by microscopic examination. Performed By: #### 4 6625 ####[facility] [address] [place], [place] [address] Abbi Choudhary M.D. [id number] Protein (U) [Mass/Vol] 100 mg/dL Abnormal Negative [facility] Comment on above: Order Comment: Micro scopic examination is performed on all urinalysis samples and only positive findings are reported. The test for blood on the chemical analytic portion of urinalysis may also be positive due to hemoglobinuria and myoglobinuria and if red blood cells are present they are quantified by microscopic examination. Performed By: #### 4 6625 ####[facility] [address] [place], [place] [address] Abbi Choudhary M.D. [id number] RBC LM.HPF (Urine sed) [#/Area] 1 /[HPF] Normal 0-3 [facility] Comment on above: Order Comment: Micro scopic examination is performed on all urinalysis samples and only positive findings are reported. The test for blood on the chemical analytic portion of urinalysis may also be positive due to hemoglobinuria and myoglobinuria and if red blood cells are present they are quantified by microscopic examination. Performed By: #### 4 6625 #### LAB [address] [place] [address] Abbi Choudhary M.D. [id number] Specific gravity (U) [Rel density] 1.017 Normal 1.005-1.025 [facility] Comment on above: Order Comment: Micro scopic examination is performed on all urinalysis samples and only positive findings are reported. The test for blood on the chemical analytic portion of urinalysis may also be positive due to hemoglobinuria and myoglobinuria and if red blood cells are present they are quantified by microscopic examination. Performed By: #### 4 6625 ####[facility] [address] [place], [place] [address]Alisia Choudhary M.D. [id number] SQUAMOUS EPITHELIAL 1 /hpf Normal 0-4 [facility] Comment on above: Order Comment: Micro scopic examination is performed on all urinalysis samples and only positive findings are reported. The test for blood on the chemical analytic portion of urinalysis may also be positive due to hemoglobinuria and myoglobinuria and if red blood cells are present they are quantified by microscopic examination. Performed By: #### 4 6625 ####[facility] [address] [place], [place] [address] Abbi Choudhary M.D. [id number] UROBILINOGEN, URINE <2.0 Normal <2.0 [facility] Comment on above: Order Comment: Micro scopic examination is performed on all urinalysis samples and only positive findings are reported. The test for blood on the chemical analytic portion of urinalysis may also be positive due to hemoglobinuria and myoglobinuria and if red blood cells are present they are quantified by microscopic examination. Performed By: #### 4 6625 ####[facility] [address] [place] [address] Julio Choudhary M.D. [id number] WBC LM.HPF (Urine sed) [#/Area] 6 /[HPF] High 0-5 [facility] Comment on above: Order Comment: Micro scopic examination is performed on all urinalysis samples and only positive findings are reported. The test for blood on the chemical analytic portion of urinalysis may also be positive due to hemoglobinuria and myoglobinuria and if red blood cells are present they are quantified by microscopic examination. Performed By: #### 4 6625 ####[facility] [address] [place] [address] Julio Choudhary M.D. [id number] BASIC METABOLIC PANELon - Anion gap [Moles/Vol] 15 mmol/L Normal 10-20 [facility] Comment on above: Order Comment: [facility] has implemented the eGFR calculation approach that does not have a coefficient for race that conforms to the NKF-ASN Task Force Recommendations. Performed By: #### 4 6124 ####[facility] [address] [place] [address] Abbi Choudhary M.D. [id number] Calcium [Mass/Vol] 9.4 mg/dL Normal 8.4-10.2 [facility] Comment on above: Order Comment: [facility] has implemented the eGFR calculation approach that does not have a coefficient for race that conforms to the NKF-ASN Task Force Recommendations. Performed By: #### 4 6124 ####[facility] [address] [place], [place] [address] Abbi Choudhary M.D. [id number] Chloride [Moles/Vol] 102 mmol/L Normal 98-108 [facility] Comment on above: Order Comment: [facility] has implemented the eGFR calculation approach that does not have a coefficient for race that conforms to the NKF-ASN Task Force Recommendations. Performed By: #### 4 6124 ####[facility] [address] [place], [place] [address] Abbi Choudhary M.D. [id number] Creatinine [Mass/Vol] 1.75 mg/dL High 0.40-1.10 [facility] Comment on above: Order Comment: [facility] has implemented the eGFR calculation approach that does not have a coefficient for race that conforms to the NKF-ASN Task Force Recommendations. Performed By: #### 4 6124 ####[facility] [address] [place], [place] [address] Abbi Choudhary M.D. [id number] EGFR 36 mL/min/1.73 m2 Low >=60 [facility] Comment on above: Order Comment: [facility] has implemented the eGFR calculation approach that does not have a coefficient for race that conforms to the NKF-ASN Task Force Recommendations. Result Comment: Lorie mated GFR was calculated using the 2020 CKD-EPI creatinine equation. Performed By: #### 4 6124 ####[facility] [address] [place], [place] [address] Abbi Choudhary M.D. [id number] Glucose [Mass/Vol] 237 mg/dL High 65-99 [facility] Comment on above: Order Comment: [facility] has implemented the eGFR calculation approach that does not have a coefficient for race that conforms to the NKF-ASN Task Force Recommendations. Performed By: #### 4 6124 ####[facility] [address] [place], [place] [address] Abbi Choudhary M.D. [id number] HCO3 (Bld) [Moles/Vol] 23 mmol/L Normal 21-32 [facility] Comment on above: Order Comment: [facility] has implemented the eGFR calculation approach that does not have a coefficient for race that conforms to the NKF-ASN Task Force Recommendations. Performed By: #### 4 6124 ####[facility] [address] [place], [place] [address] Abbi Choudhary M.D. [id number] Potassium [Moles/Vol] 3.7 mmol/L Normal 3.5-5.1 [facility] Comment on above: Order Comment: [facility] has implemented the eGFR calculation approach that does not have a coefficient for race that conforms to the NKF-ASN Task Force Recommendations. Performed By: #### 4 6124 ####[facility] [address] [place], [place] [address] Abbi Choudhary M.D. [id number] Sodium [Moles/Vol] 136 mmol/L Normal 135-145 [facility] Comment on above: Order Comment: [facility] has implemented the eGFR calculation approach that does not have a coefficient for race that conforms to the NKF-ASN Task Force Recommendations. Performed By: #### 4 6124 ####[facility] [address] [place], [place] [address] Abbi Choudhary M.D. [id number] Urea nitrogen [Mass/Vol] 26 mg/dL High 8-25 [facility] Comment on above: Order Comment: [facility] has implemented the eGFR calculation approach that does not have a coefficient for race that conforms to the NKF-ASN Task Force Recommendations. Performed By: #### 4 6124 ####[facility] [address] [place] [address] Abbi Choudhary M.D. [id number] Urea nitrogen/Creatinine [Mass ratio] 14.9 mg/mg Normal 10.0-20.0 [facility] Comment on above: Order Comment: [facility] has implemented the eGFR calculation approach that does not have a coefficient for race that conforms to the NKF-ASN Task Force Recommendations. Performed By: #### 4 6124 ####[facility] [address] [place], [place] [address] Abbi Choudhary M.D. [id number] CBC WITH AUTO DIFFERENTIALon 09-18-2024 AUTO NRBC 0.0 % Normal [facility] Comment on above: Performed By: #### L [id number] ####[facility] [address] [place], [place] [address] Abbi Choudhary M.D. [id number] AUTO NRBC ABS COUNT 0.00 K/mcL Normal 0.00-0.00 [facility] Comment on above: Performed By: #### L [id number] ####[facility] [address] [place], [place] [address] Abbi Choudhary M.D. [id number] BASOPHILS ABSOLUTE COUNT 0.05 K/mcL Normal 0.00-0.30 [facility] Comment on above: Performed By: #### L [id number] ####[facility] [address] [place], [place] [address] Abbi Choudhary M.D. [id number] Basophils/100 WBC (Bld) 0.5 % Normal [facility] Comment on above: Performed By: #### L [id number] ####[facility] [address] [place] [address] Abbi Choudhary M.D. [id number] Eosinophils (Bld) [#/Vol] 0.19 10*3/uL Normal 0.00-0.50 [facility] Comment on above: Performed By: #### L [id number] ####[facility] [address] [address] Abbi Choudhary M.D. [id number] Eosinophils/100 WBC (Bld) 2.1 % Normal [facility] Comment on above: Performed By: #### L [id number] ####[facility] [address] [place], [place] [address] Abbi Choudhary M.D. [id number] Erythrocyte distribution width (RBC) [Ratio] 12.6 % Normal 11.6-14.8 [facility] Comment on above: Performed By: #### L [id number] ####[facility] [address] [address] Abbi Choudhary M.D. [id number] Hematocrit (Bld) [Volume fraction] 33.5 % Low 36.0-46.0 [facility] Comment on above: Performed By: #### L [id number] ####[facility] [address] [address] Abbi Choudhary M.D. [id number] Hemoglobin (Bld) [Mass/Vol] 11.6 g/dL Low 12.0-16.0 [facility] Comment on above: Performed By: #### L [id number] ####[facility] [address] [address] Abbi Choudhary M.D. [id number] IG ABSOLUTE 0.07 K/mcL Normal 0.00-0.30 [facility] Comment on above: Performed By: #### L [id number] ####[facility] [address] [address] Abbi Choudhary M.D. [id number] IG PERCENT 0.80 % Normal [facility] Comment on above: Result Comment: The IG parameter is the percentage of metamyelocytes, myelocytes and promyelocytes. An immature granulocyte count (IG) of 1% or more suggests the possibility of infection, an IG count of 3% is very likely related to an infection. Performed By: #### L [id number] ####[facility] [address] [address] Abbi Choudhary M.D. [id number] Lymphocytes (Bld) [#/Vol] 2.26 10*3/uL Normal 0.90-4.00 [facility] Comment on above: Performed By: #### L [id number] ####[facility] [address] [place] [place] [address]Alisia Choudhary M.D. [id number] Lymphocytes/100 WBC (Bld) 24.4 % Normal [facility] Comment on above: Performed By: #### L [id number] ####[facility] [address] [place] [address] Abbi Choudhary M.D. [id number] MCH (RBC) [Entitic mass] 30.4 pg Normal 26.0-34.0 [facility] Comment on above: Performed By: #### L [id number] ####[facility] [address] [place] [address] Abbi Choudhary M.D. [id number] MCV (RBC) [Entitic vol] 87.7 fL Normal 80.0-100.0 [facility] Comment on above: Performed By: #### L [id number] ####[facility] [address] [place] [address] Olivia NewtonD. [id number] MEAN CORPUSCULAR HEMOGLOBIN CONC 34.6 g/dL Normal 31.0-37.0 [facility] Comment on above: Performed By: #### L [id number] ####[facility] [address] [place] [address] Abbi Choudhary M.D. [id number] Monocytes (Bld) [#/Vol] 0.54 10*3/uL Normal 0.30-0.90 [facility] Comment on above: Performed By: #### L [id number] ####[facility] [address] [place] [address] Abbi Choudhary M.D. [id number] Monocytes/100 WBC (Bld) 5.8 % Normal [facility] [facility] Comment on above: Performed By: #### L [id number] ####[facility] [address] [address] Abbi Choudhary M.D. [id number] NEUTROPHILS ABSOLUTE COUNT 6.15 K/mcL Normal 1.70-7.00 [facility] Comment on above: Performed By: #### L [id number] ####[facility] [address] [address] Abbi Choudhary M.D. [id number] Neutrophils/100 WBC (Bld) 66.4 % Normal [facility] Comment on above: Performed By: #### L [id number] ####[facility] [address] [address] Abbi Choudhary M.D. [id number] Platelet mean volume (Bld) [Entitic vol] 9.2 fL Low 9.4-12.4 [facility] Comment on above: Performed By: #### L [id number] ####[facility] [address] [address] Abbi Choudhary M.D. [id number] Platelets (Bld) [#/Vol] 290 10*3/uL Normal 150-400 [facility] Comment on above: Performed By: #### L [id number] ####[facility] [address] [address] Abbi Choudhary M.D. [id number] RBC (Bld) [#/Vol] 3.82 10*6/uL Low 4.00-5.20 [facility] Comment on above: Performed By: #### L [id number] ####[facility] [address] [place], [place] [address] Abbi Chuodhary M.D. [id number] WBC (Bld) [#/Vol] 9.26 10*3/uL Normal 4.50-11.00 [facility] Comment on above: Performed By: #### L [id number] ####[facility] [address] [place], [place] [address] Abbi Choudhary M.D. [id number] ED Prov Noteon 09-18-2024 ED Prov Note Normal [facility] TROPONIN X 2 (NOW AND REPEAT IN 2 HOURS)on 09-18-2024 BASELINE TROPONIN T NG/L 24 ng/L Off scale high <=14 [facility] Comment on above: Performed By: #### 4 [id number] ####[facility] [address] [place], [place] [address] Abbi Choudhary M.D. [id number] TROPONIN T INTERPRETATION Possible acute cardiac injury. Normal [facility] Comment on above: Performed By: #### 4 6608 ####[facility] [address] [place], [place] [address] Abbi Choudhary M.D. [id number] XR ANKLE LEFT 3+ VIEWS (LARISA DARLauren)on 09-18-2024 XR ANKLE LEFT 3+ VIEWS (STANDARD) Normal [facility] Comment on above: Order Comment: Injur y/Trauma or Illness?:Injury/TraumaHow long have you had these symptoms (acute/chronic)?:AcuteReason for exam?:ankle painHistory of cancer?:uSurgeries, chemotherapy, or radiation?:pacemakerType of Exam?:InitialMechanism of injury?:fall XR CHEST PA/APon 09-18-2024 XR CHEST PA/AP Normal [facility] Comment on above: Order Comment: Injur y/Trauma or Illness?:Illness/OtherHow long have you had these symptoms (acute/chronic)?:AcuteReason for exam?:chest painHistory of cancer?:uSurgeries, chemotherapy, or radiation?:pacemakerType of Exam?:InitialAdditional signs and symptoms?:na XR KNEE LEFT 2 VIEWS (STANDA RD)on 09-18-2024 XR KNEE LEFT 2 VIEWS (STANDARD) Normal [facility] Comment on above: Order Comment: Injur y/Trauma or Illness?:Injury/TraumaHow long have you had these symptoms (acute/chronic)?:AcuteReason for exam?:knee painHistory of cancer?:uSurgeries, chemotherapy, or radiation?:pacemakerType of Exam?:InitialMechanism of injury?:fall [facility]gent [facility] Visiton 0 08-29-2024 Urgent Care Clinic Visit [address], [place] [address] MARILYN,ADDIE J 1975 (49 F) [id number] [facility] Report #: [id number] (Signed) PCP: No Doctor Urgent Care Clinic Visit Visit Date: 08/29/24 Report Date/Time: 08/29/24 1423 HPI Arrival Information Source: patient Travel/[place] Screening Traveled Out Of Country In Last 30 Days: No (Or) Been in Contact With Ill Person Who Has Traveled: No COVID Screening Patient States Having COVID Symptoms: No History of Present Illness Complaint: laceration Description of Symptoms: Patient reports right thumb laceration that occurred prior to coming to . 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 Associated Symptoms: bleeding, controlled Date of Onset (approx): 08/29/24 Time of Onset (approx): 17:30 [address] of Occurrence: home Context: accidental and sharp object use Improves With: applying pressure Worsens With: movement Treatment [employer]: none Provider HPI Details Patient presents today with a laceration to the right thumb. States that she was unable to get the bleeding to stop which is what prompted her visit today. Pain Assessment Right thumb: Intensity: 10 Immunizations Immunizations Up to Date: yes Patient Tetanus UTD (Within 5 Years): yes Flu Vaccine: no COVID-19: Received at Least 1 Dose of Updated mRNA Vaccine: No Allergies/Home Meds Allergies Allergy/AdvReac Type Severity Reaction Status Date / Time adhesive Allergy Unverified 08/29/24 13:51 codeine (Codeine) Allergy Unknown Verified 08/29/24 13:51 fentanyl Allergy Hives Unverified 08/29/24 13:51 fosphenytoin Allergy Itching Verified 08/29/24 13:51 ibuproxam Allergy Unverified 08/29/24 13:51 Iodinated Contrast Media Allergy Verified 08/29/24 13:51 (Iodinated Contrast Media - IV Dye) propoxyphene napsylate (From Allergy Unknown Verified 08/29/24 13:51 Darvocet-N 100) tramadol HCl (From Ultram) Allergy Unknown Verified 08/29/24 13:51 vancomycin Allergy Unverified 08/29/24 13:51 ketorolac tromethamine (From AdvReac Severe Seizures Verified 08/29/24 13:51 Toradol) dextrose 5 % in water (From AdvReac Vomiting Unverified 08/29/24 13:51 Zyvox) latex AdvReac Unverified 08/29/24 13:51 linezolid (From Zyvox) AdvReac Vomiting Unverified 08/29/24 13:51 bug bites Allergy Unknown Uncoded 08/29/24 13:51 Home Medications ?Medication ?Instructions ?Recorded ?Confirmed albuterol sulfate 2.5 mg/3 mL mg 08/29/24 08/29/24 (0.083 %) solution for nebulization blood-glucose sensor (Dexcom G6 08/29/24 08/29/24 Sensor device) chlorthalidone 25 mg tablet mg 08/29/24 08/29/24 citalopram 40 mg tablet mg 08/29/24 08/29/24 levothyroxine 75 mcg tablet mcg 08/29/24 08/29/24 metoprolol succinate 50 mg mg PO 08/29/24 08/29/24 tablet,extended release 24 hr nortriptyline 25 mg capsule mg 08/29/24 08/29/24 oxycodone-acetaminophen 5 mg-325 tab 08/29/24 08/29/24 mg tablet pantoprazole 40 mg tablet,delayed mg PO 08/29/24 08/29/24 release polyethylene glycol 3350 17 gram g 08/29/24 08/29/24 oral powder packet pregabalin 75 mg capsule mg 08/29/24 08/29/24 quetiapine 400 mg tablet mg 08/29/24 08/29/24 tizanidine 4 mg tablet mg 08/29/24 08/29/24 Reproductive History LMP: hyster Reason LMP Date Not Recorded: hysterectomy Past Medical/Family/Social Hx 2 PFSH0 Medical History Medical History Anxiety Asthma Bipolar disorder Bleeding ulcer Cervical cancer Chest pain Depression Diabetes mellitus Hiatal hernia History of palpitations Low Hx of fracture Hypertension Pacemaker Rheumatoid arthritis Seizure disorder Seizures Surgical History Surgical History Cholecystectomy History of cardiac pacemaker History of orthopedic surgery LT FOOT Hysterectomy Family History Family History Father Type 2 diabetes mellitus Cardiac disease Mother RA (rheumatoid arthritis) Social History Social History Smoking Status: Patient is a current every day smoker. Uses vape. Alcohol Use: Denies alcohol use. Substance Use: Denies substance use. Lives With: Lives with family. Marital Status: Patient marital status is . Caregiver/Support Person: Support person includes family. Sexually Active: Patient is sexually active. Control: control includes hysterectomy. ROS 2 Constitutional0 Constitutional Reports: as per HPI; Denies: chills or fever(s) Eyes0 Eyes Denies: eye discharge Ears, Nose, Throat0 ENT Denies: nasal congestion Additional Details no runny nose Card (more content not included)... Normal [facility] CBC (INCLUDES DIFF/PLT)on Basophils (Bld) [#/Vol] 0.093 10*3/uL Normal 0-200 [facility] Comment on above: Performed By: #### 9 1431, 62563, 866, 899, 496, 6399, 41390 #### [facility] [address] [facility], [address] [place] [phone] Credit Relationship Manager: Dean Maddox MD Basophils/100 WBC (Bld) 0.8 % Normal [facility] Comment on above: Performed By: #### 9 1431, 47239, 866, 899, 496, 6399, 89891 #### [facility] of [address], [address] [place] [address] Credit Relationship Manager: Dean Maddox MD Eosinophils (Bld) [#/Vol] 0.22 10*3/uL Normal 15-500 [facility] Comment on above: Performed By: #### 9 1431, 39841, 866, 899, 496, 6399, 04935 #### [facility] of [address], [address] [place] [address] Credit Relationship Manager: Dean Maddox MD Eosinophils/100 WBC (Bld) 1.9 % Normal [facility] Comment on above: Performed By: #### 9 1431, 34163, 866, 899, 496, 6399, 01840 #### [facility] of [place] [address] Credit Relationship Manager: Dean Maddox MD Erythrocyte distribution width (RBC) [Ratio] 12.8 % Normal 11.0-15.0 [facility] Comment on above: Performed By: #### 9 1431, 92015, 866, 899, 496, 6399, 01578 #### [facility] of [place] [address] Credit Relationship Manager: Dean Maddox MD Hematocrit (Bld) [Volume fraction] 41.1 % Normal 35.0-45.0 [facility] Comment on above: Performed By: #### 9 1431, 53341, 866, 899, 496, 6399, 89520 #### [facility] of [address], [address] [place] [address] Credit Relationship Manager: Dean Maddox MD Hemoglobin (Bld) [Mass/Vol] 13.8 g/dL Normal 11.7-15.5 [facility] Comment on above: Performed By: #### 9 1431, 87451, 866, 899, 496, 6399, 24064 #### [facility] of [place] [address] Credit Relationship Manager: Dean Maddox MD Lymphocytes (Bld) [#/Vol] 2.401 10*3/uL Normal 850-3900 [facility] Comment on above: Performed By: #### 9 1431, 22624, 866, 899, 496, 6399, 78506 #### [facility] of [address], [address] [place] [address] Credit Relationship Manager: Dean Maddox MD Lymphocytes/100 WBC (Bld) 20.7 % Normal [facility] Comment on above: Performed By: #### 9 1431, 50965, 866, 899, 496, 6399, 64860 #### [facility] of [place] [address] Credit Relationship Manager: Dean Maddox MD MCH (RBC) [Entitic mass] 30.1 pg Normal 27.0-33.0 [facility] Comment on above: Performed By: #### 9 1431, 66208, 866, 899, 496, 6399, 37815 #### [facility] of [address], [address] [place] [address] Credit Relationship Manager: Dean Maddox MD MCHC (RBC) [Mass/Vol] 33.6 g/dL Normal 32.0-36.[address] [facility] Comment on above: Result Comment: For adults, a slight decrease in the calculated MCHC value (in the range of 30 to 32 g/dL) is most likely not clinically significant; however, it should be interpreted with caution in correlation with other red cell parameters and the patient's clinical condition. Performed By: #### 9 1431, 05106, 866, 899, 496, 6399, 76699 #### [facility] of [place] [address] Credit Relationship Manager: Dean Maddox MD MCV (RBC) [Entitic vol] 89.7 fL Normal 80.0-100.0 [facility] Comment on above: Performed By: #### 9 1431, 58027, 866, 899, 496, 6399, 98644 #### [facility] of [address], [address] [place] [address] Credit Relationship Manager: Dean Maddox MD Monocytes (Bld) [#/Vol] 0.661 10*3/uL Normal 200-950 [facility] Comment on above: Performed By: #### 9 1431, 48160, 866, 899, 496, 6399, 15247 #### [facility] of [address], [address] [place] [address] Credit Relationship Manager: Dean Maddox MD Monocytes/100 WBC (Bld) 5.7 % Normal [facility] Comment on above: Performed By: #### 9 1431, 19762, 866, 899, 496, 6399, 10029 #### [facility] of [address], [address] [place] [address] Credit Relationship Manager: Dean Maddox MD Neutrophils (Bld) [#/Vol] 8.224 10*3/uL High 3972-7087 [facility] Comment on above: Performed By: #### 9 1431, 69881, 866, 899, 496, 6399, 83034 #### [facility] of [address], [address] [place] [address] Credit Relationship Manager: Dean Maddox MD Neutrophils/100 WBC (Bld) 70.9 % Normal [facility] Comment on above: Performed By: #### 9 1431, 60621, 866, 899, 496, 6399, 40221 #### [facility] of [place] [address] Credit Relationship Manager: Dean Maddox MD Platelet mean volume (Bld) [Entitic vol] 8.9 fL Normal 7.5-12.5 [facility] Comment on above: Performed By: #### 9 1431, 16009, 866, 899, 496, 6399, 37142 #### [facility] of [address], [address] [place] [address] Credit Relationship Manager: Dean Maddox MD Platelets (Bld) [#/Vol] 404 10*3/uL High 140-400 [facility] Comment on above: Performed By: #### 9 1431, 56695, 866, 899, 496, 6399, 94383 #### [facility] [address], [address] [place] [address] Credit Relationship Manager: Dean Maddox MD RBC (Bld) [#/Vol] 4.58 10*6/uL Normal 3.80-5.10 [facility] Comment on above: Performed By: #### 9 1431, 50653, 866, 899, 496, 6399, 89433 #### [facility] [address], [address] [place] [address] Credit Relationship Manager: Dean Maddox MD WBC (Bld) [#/Vol] 11.6 10*3/uL High 3.8-10.8 [facility] Comment on above: Performed By: #### 9 1431, 82530, 866, 899, 496, 6399, 89297 #### [facility] [address], [address] [place] [address] Credit Relationship Manager: Dean Maddox MD CBC Auto Differentialon 07-23 Basophils (Bld) [#/Vol] 93 10*3/uL [facility] Basophils/100 WBC (Bld) 0.8 % [facility] Eosinophils (Bld) [#/Vol] 220 10*3/uL [facility] Eosinophils/100 WBC (Bld) 1.9 % [facility] Erythrocyte distribution width (RBC) [Ratio] 12.8 % 11.0 - 15.0 % [facility] Hematocrit (Bld) [Volume fraction] 41.1 % 35.0 - 45.0 % [facility] Hemoglobin (Bld) [Mass/Vol] 13.8 g/dL 11.7 - 15.5 g/dL [facility] Interpretation and review of laboratory results Abnormal [facility] Lymphocytes (Bld) [#/Vol] 2401 10*3/uL [facility] Lymphocytes/100 WBC (Bld) 20.7 % [facility] MCH (RBC) [Entitic mass] 30.1 pg 27.0 - 33.0 pg [facility] MCHC (RBC) [Mass/Vol] 33.6 g/dL 32.0 - 36.0 g/dL [facility] Comment on above: For adults, a slight decrease in the calculated MCHC value (in the range of 30 to 32 g/dL) is most likely not clinically significant; however, it should be interpreted with caution in correlation with other red cell parameters and the patient's clinical condition. MCV (RBC) [Entitic vol] 89.7 fL 80.0 - 100.0 fL [facility] Monocytes (Bld) [#/Vol] 661 10*3/uL [facility] Monocytes/100 WBC (Bld) 5.7 % [facility] Neutrophils (Bld) [#/Vol] 8224 10*3/uL High [facility] Neutrophils/100 WBC (Bld) 70.9 % [facility] Platelet mean volume (Bld) [Entitic vol] 8.9 fL 7.5 - 12.5 fL [facility] Platelets (Bld) [#/Vol] 404 10*3/uL High [facility] RBC (Bld) [#/Vol] 4.58 10*6/uL [facility] WBC (Bld) [#/Vol] 11.6 10*3/uL [facility] COMPREHENSIVE METABOLIC PANE L W/ANION GAPon 08-03-2024 Albumin [Mass/Vol] 4.1 g/dL Normal 3.6-5.1 [facility] Comment on above: Performed By: #### 9 1431, 70895, 866, 899, 496, 6399, 84203 #### [facility] [address], [address] [place] [address] Credit Relationship Manager: Dean Maddox MD ALP [Catalytic activity/Vol] 98 U/L Normal 31-125 [facility] Comment on above: Performed By: #### 9 1431, 77723, 866, 899, 496, 6399, 89159 #### [facility] [address] [place] [address], [address] [place] [phone] Credit Relationship Manager: Dean Maddox MD ALT [Catalytic activity/Vol] 11 U/L Normal 6-29 [facility] Comment on above: Performed By: #### 9 1431, 66705, 866, 899, 496, 6399, 49817 #### [facility] of [address], [address] [place] [address] Credit Relationship Manager: Dean Maddox MD AST [Catalytic activity/Vol] 10 U/L Normal 10-35 [facility] Comment on above: Performed By: #### 9 1431, 10916, 866, 899, 496, 6399, 40593 #### [facility] of [place] [address] Credit Relationship Manager: Dean Maddox MD Bilirubin [Mass/Vol] 0.4 mg/dL Normal 0.2-1.2 [facility] Comment on above: Performed By: #### 9 1431, 59466, 866, 899, 496, 6399, 53692 #### [facility] of [place] [address] Credit Relationship Manager: Dean Maddox MD Calcium [Mass/Vol] 9.6 mg/dL Normal 8.6-10.2 [facility] Comment on above: Performed By: #### 9 1431, 50781, 866, 899, 496, 6399, 98675 #### [facility] [place] [address] Credit Relationship Manager: Dean Maddox MD Chloride [Moles/Vol] 105 mmol/L Normal 98-110 [facility] Comment on above: Performed By: #### 9 1431, 37680, 866, 899, 496, 6399, 74772 #### [facility] of [place] [address] Credit Relationship Manager: Dean Maddox MD CO2 [Moles/Vol] 20 mmol/L Normal 20-32 [facility] Comment on above: Performed By: #### 9 1431, 10601, 866, 899, 496, 6399, 51635 #### [facility] of [place] [address] Credit Relationship Manager: Dean Maddox MD Creatinine [Mass/Vol] 1.30 mg/dL High 0.50-0.[address] [facility] Comment on above: Performed By: #### 9 1431, 46676, 866, 899, 496, 6399, 22913 #### [facility] [address], [address] [place], [place] [phone] Credit Relationship Manager: Dean Maddox MD ELECTROLYTE BALANCE 11 mmol/L (calc) Normal 7-17 [facility] Comment on above: Performed By: #### 9 1431, 50040, 866, 899, 496, 6399, 93042 #### [facility] [address], [address] [place] [address] Credit Relationship Manager: Dean Maddox MD GFR/1.73 sq M.predicted among non-blacks MDRD (S/P/Bld) [Vol rate/Area] 51 mL/min/{1.73_m2} Low > OR = 60 [facility] Comment on above: Performed By: #### 9 1431, 36985, 866, 899, 496, 6399, 11856 #### [facility] [address], [address] [place] [address] Credit Relationship Manager: Dean Maddox MD Glucose [Mass/Vol] 214 mg/dL High 65-99 [facility] Comment on above: Result Comment: Fasting reference interval For someone without known diabetes, a glucose value >125 mg/dL indicates that they may have diabetes and this should be confirmed with a follow-up test. Performed By: #### 9 1431, 30157, 866, 899, 496, 6399, 40657 #### [facility] [address], [address] [place] [phone] Credit Relationship Manager: Dean Maddox MD Potassium [Moles/Vol] 4.9 mmol/L Normal 3.5-5.[address] [facility] Comment on above: Performed By: #### 9 1431, 98164, 866, 899, 496, 6399, 98510 #### [facility] [address], [address] [place] [address] Credit Relationship Manager: Dean Maddox MD Protein [Mass/Vol] 7.0 g/dL Normal 6.1-8.1 [facility] Comment on above: Performed By: #### 9 1431, 16226, 866, 899, 496, 6399, 74852 #### [facility] [address], [address] [place] [address] Credit Relationship Manager: Dean Maddox MD Sodium [Moles/Vol] 136 mmol/L Normal 135-146 [facility] Comment on above: Performed By: #### 9 1431, 87608, 866, 899, 496, 6399, 45024 #### [facility] [address], [address] [place] [address] Credit Relationship Manager: Dean Maddox MD Urea nitrogen [Mass/Vol] 30 mg/dL High 7-25 [facility] Comment on above: Performed By: #### 9 1431, 04477, 866, 899, 496, 6399, 47091 #### [facility] of [address], [address] [place] [address] Credit Relationship Manager: Dean Maddox MD Comprehensive metabolic 2000 panelon 08-03-2024 Albumin [Mass/Vol] 4.1 g/dL 3.6 - 5.1 g/dL [facility] ALP [Catalytic activity/Vol] 98 U/L 31 - 125 U/L [facility] ALT [Catalytic activity/Vol] 11 U/L 6 - 29 U/L [facility] Anion gap [Moles/Vol] 11 mmol/L [facility] AST [Catalytic activity/Vol] 10 U/L 10 - 35 U/L [facility] Bilirubin [Mass/Vol] 0.4 mg/dL 0.2 - 1 .2 mg/dL [facility] Calcium [Mass/Vol] 9.6 mg/dL 8.6 - 10. 2 mg/dL [facility] Chloride [Moles/Vol] 105 mmol/L 98 - 11 0 mmol/L [facility] CO2 [Moles/Vol] 20 mmol/L 20 - 32 mmol/L [facility] Creatinine [Mass/Vol] 1.3 mg/dL High 0.50 - 0.99 mg/dL [facility] GFR/1.73 sq M.predicted among non-blacks MDRD (S/P/Bld) [Vol rate/Area] 51 mL/min/{1.73_m2} Low > OR = 60 mL/min/1.73 m2 [facility] Glucose [Mass/Vol] 214 mg/dL High 65 - 99 mg/dL [facility] Comment on above: Fasting reference interval For someone without known diabetes, a glucose value >125 mg/dL indicates that they may have diabetes and this should be confirmed with a follow-up test. Potassium [Moles/Vol] 4.9 mmol/L 3.5 - 5.3 mmol/L [facility] Protein [Mass/Vol] 7 g/dL 6.1 - 8.1 g/dL [facility] Sodium [Moles/Vol] 136 mmol/L 135 - 146 mmol/L [facility] Urea nitrogen [Mass/Vol] 30 mg/dL High 7 - 25 mg/dL [facility] HEMOGLOBIN A1con 08-03-2024 HEMOGLOBIN A1c 10.6 % of total Hgb High <5.7 [facility] Comment on above: Result Comment: For someone without known diabetes, a hemoglobin A1c value of 6.5% or greater indicates that they may have diabetes and this should be confirmed with a follow-up test. For someone with known diabetes, a value <7% indicates that their diabetes is well controlled and a value greater than or equal to 7% indicates suboptimal control. A1c targets should be individualized based on duration of diabetes, age, comorbid conditions, and other considerations. Currently, no consensus exists regarding use of hemoglobin A1c for diagnosis of diabetes for children. Performed By: #### 9 1431, 08461, 866, 899, 496, 6399, 61057 #### [facility] [address], [address] [place] [phone] Credit Relationship Manager: Dean Maddox MD HEPATITIS C AB W/REFL TO HCV RNA, QN, PCRon 08-03-2024 HEPATITIS C ANTIBODY Normal [facility] Comment on above: Performed By: #### 9 1431, 71001, 866, 899, 496, 6399, 86499 #### [facility] [address], [address] [place] [address] Credit Relationship Manager: Dean Maddox MD HIV 1/2 ANTIGEN/ANTIBODY,FOU RTH GENERATION W/RFLon 08-03-2024 HIV AG/AB, 4TH GEN Normal [facility] Comment on above: Performed By: #### 9 1431, 93921, 866, 899, 496, 6399, 76200 #### [facility] [address] [facility], [address] [place] [address] Credit Relationship Manager: Dean Maddox MD HIV Antibody (HIV1/HIV2)on 0 08-03-2024 HIV 1+2 Ab+HIV1 p24 Ag IA Ql Non-Reactive NON-REACTIV E [facility] Comment on above: HIV-1 antigen and HI V-1/HIV-2 antibodies were not detected. There is no laboratory evidence of HIV infection. PLEASE NOTE: This information has been disclosed to you from records whose confidentiality may be protected by state law. If your state requires such protection, then the state law prohibits you from making any further disclosure of the information without the specific written consent of the person to whom it pertains, or as otherwise permitted by law. A general authorization for the release of medical or other information is NOT sufficient for this purpose. For additional information please refer to http://education.[employer].Roost/faq/WIH750 (This link is being provided for informational/ educational purposes only.) The performance of this assay has not been clinically validated in patients less than 2 years old. HbA1c (Bld) [Mass fraction]o n 08-03-2024 Interpretation and review of laboratory results Abnormal [facility] Hemoglobin A1con 08-03-2024 HbA1c (Bld) [Mass fraction] 10.6 % High [facility] Comment on above: For someone without known diabetes, a hemoglobin A1c value of 6.5% or greater indicates that they may have diabetes and this should be confirmed with a follow-up test. For someone with known diabetes, a value <7% indicates that their diabetes is well controlled and a value greater than or equal to 7% indicates suboptimal control. A1c targets should be individualized based on duration of diabetes, age, comorbid conditions, and other considerations. Currently, no consensus exists regarding use of hemoglobin A1c for diagnosis of diabetes for children. Hepatitis C Ab with Reflex t o HCV Virus Quantitationon 08-03-2024 HCV Ab IA Ql Non-Reactive NON-REACTIV E [facility] Comment on above: HCV antibody was non-reactive. There is no laboratory evidence of HCV infection. In most cases, no further action is required. However, if recent HCV exposure is suspected, a test for HCV RNA (test code 02692) is suggested. For additional information please refer to http://Howcast.Pie Digital/faq/HRR12a8 (This link is being provided for informational/ educational purposes only.) LIPID PANEL WITH REFLEX TO D IRECT LDLon 08-03-2024 Cholesterol [Mass/Vol] 232 mg/dL High <200 [facility] Comment on above: Performed By: #### 9 1431, 95991, 866, 899, 496, 6399, 92667 #### [facility] [address], [address] [place] [address] Credit Relationship Manager: Dean Maddox MD Cholesterol in HDL [Mass/Vol] 58 mg/dL Normal > OR = 50 [facility] Comment on above: Performed By: #### 9 1431, 98405, 866, 899, 496, 6399, 46401 #### [facility] [address], [address] [place] [address] Credit Relationship Manager: Dean Maddox MD Cholesterol in LDL [Mass/Vol] 144 mg/dL High [facility] Comment on above: Result Comment: Refe rence range: <100 Desirable range <100 mg/dL for primary prevention; <70 mg/dL for patients with CHD or diabetic patients with > or = 2 CHD risk factors. LDL-C is now calculated using the Antoine-Linden calculation, which is a validated novel method providing better accuracy than the Friedewald equation in the estimation of LDL-C. Antoine SS et al. CHOLO. 2013;310(19): 3228-9167 (http://education.[employer].Roost/faq/AQD355) Performed By: #### 9 1431, 57628, 866, 899, 496, 6399, 03389 #### [facility] [address], [address] [place] [address] Credit Relationship Manager: Dean Maddox MD Cholesterol.total/Cho lesterol in HDL [Mass ratio] 4.0 {ratio} Normal <5.0 [facility] Comment on above: Performed By: #### 9 1431, 23076, 866, 899, 496, 6399, 10416 #### [facility] [address], [address] [place] [address] Credit Relationship Manager: Dean Maddox MD NON HDL CHOLESTEROL 174 mg/dL (calc) High <130 [facility] Comment on above: Result Comment: For patients with diabetes plus 1 major ASCVD risk factor, treating to a non-HDL-C goal of <100 mg/dL (LDL-C of <70 mg/dL) is considered a therapeutic option. Performed By: #### 9 1431, 93672, 866, 899, 496, 6399, 49117 #### [facility] [address], [address] [place] [address] Credit Relationship Manager: Dean Maddox MD Triglyceride [Mass/Vol] 167 mg/dL High <150 [facility] Comment on above: Performed By: #### 9 1431, 54568, 866, 899, 496, 6399, 65379 #### [facility] [place] [address] Credit Relationship Manager: Dean Maddox MD Lipid 1996 panelon 5 Cholesterol [Mass/Vol] 232 mg/dL High NINF - 200 mg/dL [facility] Cholesterol in HDL [Mass/Vol] 58 mg/dL > OR = 50 [facility] Cholesterol in LDL [Mass/Vol] 144 mg/dL High mg/dL (calc) [facility] Comment on above: Reference range: <10 0 Desirable range <100 mg/dL for primary prevention; <70 mg/dL for patients with CHD or diabetic patients with > or = 2 CHD risk factors. LDL-C is now calculated using the Miguel Ángel calculation, which is a validated novel method providing better accuracy than the Friedewald equation in the estimation of LDL-C. Antoine GRGEG et al. CHOLO. 2013;310(19): 4098-5014 (http://education.ConXtech/faq/ZYE624) Cholesterol non HDL [Mass/Vol] 174 mg/dL High [facility] Comment on above: For patients with di abetes plus 1 major ASCVD risk factor, treating to a non-HDL-C goal of <100 mg/dL (LDL-C of <70 mg/dL) is considered a therapeutic option. Cholesterol.total/Cho lesterol in HDL [Mass ratio] 4 {ratio} [facility] Triglyceride [Mass/Vol] 167 mg/dL High [facility] - 150 mg/dL [facility] No Panel Informationon 08-03 [facility] Interpretation and review of laboratory results Abnormal [facility] T4, FREE 08-03-2024 Free T4 [Mass/Vol] 0.9 ng/dL Normal 0.8-1.8 [facility] Comment on above: Performed By: #### 9 1431, 53943, 866, 899, 496, 6399, 08029 #### [facility] [address] [phone] Credit Relationship Manager: Dean Maddox MD T4, [facility] 08-03-2024 Free T4 [Mass/Vol] 0.9 ng/dL 0.8 - 1.8 ng/dL [facility] TSHon 08-03-2024 TSH Qn 3.54 m[IU]/L Normal [facility] Comment on above: Result Comment: Refe rence Range > or = 20 Years 0.40-4.50 Ranges First trimester 0.26-2.66 Second trimester 0.55-2.73 Third trimester 0.43-2.91 Performed By: #### 9 1431, 13527, 866, 899, 496, 6399, 88242 #### [facility] [address], [address] [place] [phone] Credit Relationship Manager: Dean Maddox MD TSH DL <= 0.005 mIU/L Qnon 0 08-03-2024 TSH Qn 3.54 m[IU]/L mIU/L [facility] Comment on above: Reference Range > or = 20 Years 0.40-4.50 Ranges First trimester 0.26-2.66 Second trimester 0.55-2.73 Third trimester 0.43-2.91 XR KNEES BILATERAL 2 VIEWS E ACH (STANDARD)on 08-02-2024 XR KNEES BILATERAL 2 VIEWS EACH (STANDARD) Normal [facility] Comment on above: Order Comment: Injur y/Trauma or Illness?:Illness/OtherHow long have you had these symptoms (acute/chronic)?:UnknownReason for exam?:Bilateral knee painHistory of cancer?:uSurgeries, chemotherapy, or radiation?:pacemakerType of Exam?:UnknownAdditional signs and symptoms?:none ED Prov Noteon 05-23-2024 ED Prov Note Normal [facility] XR HAND LEFT 3+ VIEWS (STAND ILIA)on 05-23-2024 XR HAND LEFT 3+ VIEWS (STANDARD) Normal [facility] Comment on above: Order Comment: Injur y/Trauma or Illness?:Illness/OtherHow long have you had these symptoms (acute/chronic)?:AcuteReason for exam?:Lt hand pain with swellingHistory of cancer?:uSurgeries, chemotherapy, or radiation?:pacemakerType of Exam?:InitialAdditional signs and symptoms?:Lt hand pain with swelling CBCon 04-29-2024 AUTO NRBC 0.0 % Normal [facility] Comment on above: Performed By: #### 4 [id number] ####[facility] [address] [place] [address] Abbi Choudhary M.D. [id number] AUTO NRBC ABS COUNT 0.00 K/mcL Normal 0.00-0.00 [facility] Comment on above: Performed By: #### 4 [id number] ####[facility] [address] [place] [address] Abbi Choudhary M.D. [id number] Erythrocyte distribution width (RBC) [Ratio] 13.4 % Normal 11.6-14.8 [facility] Comment on above: Performed By: #### 4 [id number] ####[facility] [address] [place] [address] Abbi Choudhary M.D. [id number] Hematocrit (Bld) [Volume fraction] 29.3 % Low 36.0-46.0 [facility] Comment on above: Performed By: #### 4 [id number] ####[facility] [address] [place], [place] [address] Abbi Choudhary M.D. [id number] Hemoglobin (Bld) [Mass/Vol] 9.6 g/dL Low 12.0-16.0 [facility] Comment on above: Performed By: #### 4 5218 ####[facility] [address] [place], [place] [address] Abbi Choudhary M.D. [id number] MCH (RBC) [Entitic mass] 31.0 pg Normal 26.0-34.0 [facility] Comment on above: Performed By: #### 4 [id number] ####[facility] [address] [place], [place] [address] Abbi Choudhary M.D. [id number] MCV (RBC) [Entitic vol] 94.5 fL Normal 80.0-100.0 [facility] Comment on above: Performed By: #### 4 [id number] ####[facility] [address] [place], [place] [address] Abbi Choudhary M.D. [id number] MEAN CORPUSCULAR HEMOGLOBIN CONC 32.8 g/dL Normal 31.0-37.0 [facility] Comment on above: Performed By: #### 4 [id number] ####[facility] [address] [place], [place] [address] Abbi Choudhary M.D. [id number] Platelet mean volume (Bld) [Entitic vol] 9.7 fL Normal 9.4-12.4 [facility] Comment on above: Performed By: #### 4 [id number] ####[facility] [address] [place], [place] [address] Abbi Choudhary M.D. [id number] Platelets (Bld) [#/Vol] 289 10*3/uL Normal 150-400 [facility] Comment on above: Performed By: #### 4 5218 ####[facility] [address] [place], [place] [address] Abbi Choudhary M.D. [id number] RBC (Bld) [#/Vol] 3.10 10*6/uL Low 4.00-5.20 [facility] Comment on above: Performed By: #### 4 [id number] ####[facility] [address] [place], [place] [address] Abbi Choudhary M.D. [id number] WBC (Bld) [#/Vol] 6.78 10*3/uL Normal 4.50-11.00 [facility] Comment on above: Performed By: #### 4 [id number] ####[facility] [address] [place], [place] [address] Abbi Choudhary M.D. [id number] CBC panel Auto (Bld)on 04-29 Erythrocyte distribution width (RBC) [Entitic vol] 13.4 % 11.6 - 14.8 % [facility] Hematocrit (Bld) [Volume fraction] 29.3 % Low 36.0 - 46.0 % [facility] Hemoglobin (Bld) [Mass/Vol] 9.6 g/dL Low 12.0 - 16.0 g/dL [facility] Interpretation and review of laboratory results Abnormal [facility] MCH (RBC) [Entitic mass] 31 pg 26.0 - 34.0 pg [facility] MCHC (RBC) [Mass/Vol] 32.8 g/dL 31.0 - 37.0 g/dL [facility] MCV (RBC) [Entitic vol] 94.5 fL 80.0 - 100.0 fL [facility] Nucleated RBC (Bld) [#/Vol] 0 10*3/uL [facility] Nucleated RBC/100 WBC (Bld) [Ratio] 0 % [facility] Platelet mean volume (Bld) [Entitic vol] 9.7 fL 9.4 - 12.4 fL [facility] Platelets (Bld) [#/Vol] 289 10*3/uL [facility] RBC (Bld) [#/Vol] 3.1 10*6/uL Low [facility] alth WBC (Bld) [#/Vol] 6.78 10*3/uL [facility]alth [facility] Disch Summon 04-29-2024 Disch Summ Normal [facility] Glucose (Bld) [Mass/Vol]on 06-30-2023 Glucose [Mass/Vol] 240 mg/dL High 65 - 99 mg/dL [facility] Interpretation and review of laboratory results Abnormal [facility] Glucose [Mass/Vol] 340 mg/dL High 65 - 99 mg/dL [facility] Interpretation and review of laboratory results Abnormal [facility] POC GLUCOSE - RALSon 024 Glucose [Mass/Vol] 240 mg/dL High [address] [place] [address] Comment on above: Performed By: #### 4 6932 ####[facility] [address] [place], [place] [address] Abbi Choudhary M.D. [id number] Glucose [Mass/Vol] 340 mg/dL High [address] [place] [address] Comment on above: Performed By: #### 4 6932 ####[facility] [address] [place], [place] [address] Abbi Choudhary M.D. [id number] RENAL FUNCTION PANELon 04-29 Albumin [Mass/Vol] 3.2 g/dL Normal 3.2-5.2 [facility] Comment on above: Order Comment: [facility] has implemented the eGFR calculation approach that does not have a coefficient for race that conforms to the NKF-ASN Task Force Recommendations. Performed By: #### 4 6449 ####[facility] [address] [place], [place] [address] Abbi Choudhary M.D. [id number] Anion gap [Moles/Vol] 15 mmol/L Normal 10-20 [facility] Comment on above: Order Comment: [facility] has implemented the eGFR calculation approach that does not have a coefficient for race that conforms to the NKF-ASN Task Force Recommendations. Performed By: #### 4 6449 ####[facility] [address] [place], [place] [address] Abbi Choudhary M.D. [id number] Calcium [Mass/Vol] 8.5 mg/dL Normal 8.4-10.2 [facility] Comment on above: Order Comment: [facility] has implemented the eGFR calculation approach that does not have a coefficient for race that conforms to the NKF-ASN Task Force Recommendations. Performed By: #### 4 6449 ####[facility] [address] [place], [place] [address] Abbi Choudhary M.D. [id number] Chloride [Moles/Vol] 104 mmol/L Normal 98-108 [facility] Comment on above: Order Comment: [facility] has implemented the eGFR calculation approach that does not have a coefficient for race that conforms to the NKF-ASN Task Force Recommendations. Performed By: #### 4 6449 ####[facility] [address] [place], [place] [address] Abbi hCoudhary M.D. [id number] Creatinine [Mass/Vol] 1.72 mg/dL High 0.40-1.10 [facility] Comment on above: Order Comment: [facility] has implemented the eGFR calculation approach that does not have a coefficient for race that conforms to the NKF-ASN Task Force Recommendations. Performed By: #### 4 6449 ####[facility] [address] [place], [place] [address] Abbi Choudhary M.D. [id number] EGFR 37 mL/min/1.73 m2 Low >=60 [facility] Comment on above: Order Comment: [facility] has implemented the eGFR calculation approach that does not have a coefficient for race that conforms to the NKF-ASN Task Force Recommendations. Result Comment: Lorie mated GFR was calculated using the 2020 CKD-EPI creatinine equation. Performed By: #### 4 6449 ####[facility] [address] [place], [place] [address] Abbi Choudhary M.D. [id number] Glucose [Mass/Vol] 358 mg/dL High 65-99 [facility] Comment on above: Order Comment: [facility] has implemented the eGFR calculation approach that does not have a coefficient for race that conforms to the NKF-ASN Task Force Recommendations. Performed By: #### 4 6449 ####[facility] [address] [place], [place] [address] Abbi Choudhary M.D. [id number] HCO3 (Bld) [Moles/Vol] 23 mmol/L Normal 21-32 [facility] Comment on above: Order Comment: [facility] has implemented the eGFR calculation approach that does not have a coefficient for race that conforms to the NKF-ASN Task Force Recommendations. Performed By: #### 4 6449 ####[facility] [address] [place], [place] [address] Abbi Choudhary M.D. [id number] Phosphate [Mass/Vol] 4.0 mg/dL Normal 2.7-4.5 [facility] Comment on above: Order Comment: [facility] has implemented the eGFR calculation approach that does not have a coefficient for race that conforms to the NKF-ASN Task Force Recommendations. Performed By: #### 4 6449 ####[facility] [address] [place], [place] [address] Abbi Choudhary M.D. [id number] Potassium [Moles/Vol] 4.5 mmol/L Normal 3.5-5.1 [facility] Comment on above: Order Comment: [facility] has implemented the eGFR calculation approach that does not have a coefficient for race that conforms to the NKF-ASN Task Force Recommendations. Performed By: #### 4 6449 ####[facility] [address] [place], [place] [address] Abbi Choudhary M.D. [id number] Sodium [Moles/Vol] 137 mmol/L Normal 135-145 [facility] Comment on above: Order Comment: [facility] has implemented the eGFR calculation approach that does not have a coefficient for race that conforms to the NKF-ASN Task Force Recommendations. Performed By: #### 4 6449 ####[facility] [address] [place], [place] [address] Abbi Choudhary M.D. [id number] Urea nitrogen [Mass/Vol] 30 mg/dL High 8-25 [facility] Comment on above: Order Comment: [facility] has implemented the eGFR calculation approach that does not have a coefficient for race that conforms to the NKF-ASN Task Force Recommendations. Performed By: #### 4 6449 ####[facility] [address] [place], [place] [address] Abbi Choudhary M.D. [id number] Urea nitrogen/Creatinine [Mass ratio] 17.4 mg/mg Normal 10.0-20.0 [facility] Comment on above: Order Comment: [facility] has implemented the eGFR calculation approach that does not have a coefficient for race that conforms to the NKF-ASN Task Force Recommendations. Performed By: #### 4 6449 ####[facility] [address] [place], [place] [address] Abbi Choudhary M.D. [id number] Renal function 2000 panelon 04-29-2024 Albumin [Mass/Vol] 3.2 g/dL 3.2 - 5.2 g/dL [facility] Anion gap [Moles/Vol] 15 mmol/L 10 - 2 0 mmol/L [facility] Calcium [Mass/Vol] 8.5 mg/dL 8.4 - 10. 2 mg/dL [facility] Chloride [Moles/Vol] 104 mmol/L 98 - 10 8 mmol/L [facility] Creatinine [Mass/Vol] 1.72 mg/dL High 0.40 - 1.10 mg/dL [facility] GFR/1.73 sq M.predicted CKD-EPI (S/P/Bld) [Vol rate/Area] 37 Low - PINF [facility] Comment on above: Estimated GFR was ca lculated using the 2020 CKD-EPI creatinine equation. Glucose [Mass/Vol] 358 mg/dL High 65 - 99 mg/dL [facility] HCO3 [Moles/Vol] 23 mmol/L 21 - 32 mmol/L [facility] Interpretation and review of laboratory results Abnormal [facility] Phosphate [Mass/Vol] 4 mg/dL 2.7 - 4 .5 mg/dL [facility] Potassium [Moles/Vol] 4.5 mmol/L 3.5 - 5.1 mmol/L [facility] Sodium [Moles/Vol] 137 mmol/L 135 - 145 mmol/L [facility] Urea nitrogen [Mass/Vol] 30 mg/dL High 8 - 25 mg/dL [facility] Urea nitrogen/Creatinine [Mass ratio] 17.4 mg/mg 10.0 - 20.0 [facility] has implemented the eGFR calculation approach that does not have a coefficient for race that conforms to the NKF-ASN Task Force Recommendations. [facility] CBCon 04-28-2024 AUTO NRBC 0.0 % Normal [facility] Comment on above: Performed By: #### 4 5218 ####[facility] [address] [place], [place] [address] Abbi Choudhary M.D. [id number] AUTO NRBC ABS COUNT 0.00 K/mcL Normal 0.00-0.00 [facility] Comment on above: Performed By: #### 4 5218 ####[facility] [address] [place], [place] [address] Abbi Choudhary M.D. [id number] Erythrocyte distribution width (RBC) [Ratio] 13.2 % Normal 11.6-14.8 [facility] Comment on above: Performed By: #### 4 5218 ####[facility] [address] [place], [place] [address] Abbi Choudhary M.D. [id number] Hematocrit (Bld) [Volume fraction] 27.7 % Low 36.0-46.0 [facility] Comment on above: Performed By: #### 4 5218 ####[facility] [address] [place], [place] [address] Abbi Choudhary M.D. [id number] Hemoglobin (Bld) [Mass/Vol] 9.4 g/dL Low 12.0-16.0 [facility] Comment on above: Performed By: #### 4 5218 ####[facility] [address] [place], [place] [address] Abbi Choudhary M.D. [id number] MCH (RBC) [Entitic mass] 31.9 pg Normal 26.0-34.0 [facility] Comment on above: Performed By: #### 4 5218 ####[facility] [address] [place], [place] [address] Abbi Choudhary M.D. [id number] MCV (RBC) [Entitic vol] 93.9 fL Normal 80.0-100.0 [facility] Comment on above: Performed By: #### 4 5218 ####[facility] [address] [place], [place] [address] Abbi Choudhary M.D. [id number] MEAN CORPUSCULAR HEMOGLOBIN CONC 33.9 g/dL Normal 31.0-37.0 [facility] Comment on above: Performed By: #### 4 5218 ####[facility] [address] [place], [place] [address] Abbi Choudhary M.D. [id number] Platelet mean volume (Bld) [Entitic vol] 9.7 fL Normal 9.4-12.4 [facility] Comment on above: Performed By: #### 4 5218 ####[facility] [address] [place], [place] [address] Abbi Choudhary M.D. [id number] Platelets (Bld) [#/Vol] 277 10*3/uL Normal 150-400 [facility] Comment on above: Performed By: #### 4 5218 ####[facility] [address] [place] [address] Abbi Choudhary M.D. [id number] RBC (Bld) [#/Vol] 2.95 10*6/uL Low 4.00-5.20 [facility] Comment on above: Performed By: #### 4 5218 ####[facility] [address] [place] [address] Abbi Choudhary M.D. [id number] WBC (Bld) [#/Vol] 8.19 10*3/uL Normal 4.50-11.00 [facility] Comment on above: Performed By: #### 4 [id number] ####[facility] [address] [place], [place] [address] Abbi Choudhary M.D. [id number] CBC panel Auto (Bld)on 04-28 Erythrocyte distribution width (RBC) [Entitic vol] 13.2 % 11.6 - 14.8 % [facility] Hematocrit (Bld) [Volume fraction] 27.7 % Low 36.0 - 46.0 % [facility] Hemoglobin (Bld) [Mass/Vol] 9.4 g/dL Low 12.0 - 16.0 g/dL [facility] Interpretation and review of laboratory results Abnormal [facility] MCH (RBC) [Entitic mass] 31.9 pg 26.0 - 34.0 pg [facility] MCHC (RBC) [Mass/Vol] 33.9 g/dL 31.0 - 37.0 g/dL [facility] MCV (RBC) [Entitic vol] 93.9 fL 80.0 - 100.0 fL [facility] Nucleated RBC (Bld) [#/Vol] 0 10*3/uL [facility] Nucleated RBC/100 WBC (Bld) [Ratio] 0 % [facility] Platelet mean volume (Bld) [Entitic vol] 9.7 fL 9.4 - 12.4 fL [facility] Platelets (Bld) [#/Vol] 277 10*3/uL [facility] RBC (Bld) [#/Vol] 2.95 10*6/uL Low [facility] WBC (Bld) [#/Vol] 8.19 10*3/uL [facility] Glucose (Bld) [Mass/Vol]on 1 06-29-2023 Glucose [Mass/Vol] 236 mg/dL High 65 - 99 mg/dL [facility] Interpretation and review of laboratory results Abnormal [facility] Glucose [Mass/Vol] 282 mg/dL High 65 - 99 mg/dL [facility] Interpretation and review of laboratory results Abnormal [facility] Glucose [Mass/Vol] 267 mg/dL High 65 - 99 mg/dL [facility] Interpretation and review of laboratory results Abnormal [facility] Glucose [Mass/Vol] 315 mg/dL High 65 - 99 mg/dL [facility] Interpretation and review of laboratory results Abnormal [facility] POC GLUCOSE - [facility] 024 Glucose [Mass/Vol] 236 mg/dL High [address] [place] [address] Comment on above: Performed By: #### 4 6932 ####[facility] [address] [place] [address] Abbi Choudhary M.D. [id number] Glucose [Mass/Vol] 282 mg/dL [address] Comment on above: Performed By: #### 4 6932 ####[facility] [address] [place], [place] [address] Abbi Choudhary M.D. [id number] Glucose [Mass/Vol] 267 mg/dL [address] Comment on above: Performed By: #### 4 6932 ####[facility] [address] [place], [place] [address] Abbi Choudhary M.D. [id number] Glucose [Mass/Vol] 315 mg/dL [address] Comment on above: Performed By: #### 4 6932 ####[facility] [address] [place] [address] Abbi Oglesbyn, M.D. [id number] RENAL FUNCTION PANELon 04-28 Albumin [Mass/Vol] 3.1 g/dL Low 3.2-5.2 [facility] Comment on above: Order Comment: [facility] has implemented the eGFR calculation approach that does not have a coefficient for race that conforms to the NKF-ASN Task Force Recommendations. Performed By: #### 4 6449 ####[facility] [address] [place], [place] [address] Abbi Choudhary M.D. [id number] Anion gap [Moles/Vol] 15 mmol/L Normal 10-20 [facility] Comment on above: Order Comment: [facility] has implemented the eGFR calculation approach that does not have a coefficient for race that conforms to the NKF-ASN Task Force Recommendations. Performed By: #### 4 6449 ####[facility] [address] [place], [place] [address] Abbi Choudhary M.D. [id number] Calcium [Mass/Vol] 8.7 mg/dL Normal 8.4-10.2 [facility] Comment on above: Order Comment: [facility] has implemented the eGFR calculation approach that does not have a coefficient for race that conforms to the NKF-ASN Task Force Recommendations. Performed By: #### 4 [id number] ####[facility] [address] [place], [place] [address] Abbi Choudhary M.D. [id number] Chloride [Moles/Vol] 102 mmol/L Normal 98-108 [facility] Comment on above: Order Comment: [facility] has implemented the eGFR calculation approach that does not have a coefficient for race that conforms to the NKF-ASN Task Force Recommendations. Performed By: #### 4 [id number] ####[facility] [address] [place], [place] [address] Abbi Choudhary M.D. [id number] Creatinine [Mass/Vol] 1.68 mg/dL High 0.40-1.10 [facility] Comment on above: Order Comment: [facility] has implemented the eGFR calculation approach that does not have a coefficient for race that conforms to the NKF-ASN Task Force Recommendations. Performed By: #### 4 [id number] ####[facility] [address] [place], [place] [address] Abbi Choudhary M.D. [id number] EGFR 38 mL/min/1.73 m2 Low >=60 [facility] Comment on above: Order Comment: [facility] has implemented the eGFR calculation approach that does not have a coefficient for race that conforms to the NKF-ASN Task Force Recommendations. Result Comment: Lorie mated GFR was calculated using the 2020 CKD-EPI creatinine equation. Performed By: #### 4 [id number] ####[facility] [address] [place], [place] [address] Abbi Choudhary M.D. [id number] Glucose [Mass/Vol] 408 mg/dL Off scale high 65-99 [facility] Comment on above: Order Comment: [facility] has implemented the eGFR calculation approach that does not have a coefficient for race that conforms to the NKF-ASN Task Force Recommendations. Performed By: #### 4 [id number] ####[facility] [address] [place], [place] [address] Abbi Choudhary M.D. [id number] HCO3 (Bld) [Moles/Vol] 24 mmol/L Normal 21-32 [facility] Comment on above: Order Comment: [facility] has implemented the eGFR calculation approach that does not have a coefficient for race that conforms to the NKF-ASN Task Force Recommendations. Performed By: #### 4 [id number] ####[facility] [address] [place], [place] [address] Abbi Choudhary M.D. [id number] Phosphate [Mass/Vol] 3.8 mg/dL Normal 2.7-4.5 [facility] Comment on above: Order Comment: [facility] has implemented the eGFR calculation approach that does not have a coefficient for race that conforms to the NKF-ASN Task Force Recommendations. Performed By: #### 4 [id number] ####[facility] [address] [place], [place] [address] Abbi Choudhary M.D. [id number] Potassium [Moles/Vol] 4.5 mmol/L Normal 3.5-5.1 [facility] Comment on above: Order Comment: [facility] has implemented the eGFR calculation approach that does not have a coefficient for race that conforms to the NKF-ASN Task Force Recommendations. Performed By: #### 4 [id number] ####[facility] [address] [place], [place] [address] Abbi Choudahry M.D. [id number] Sodium [Moles/Vol] 136 mmol/L Normal 135-145 [facility] Comment on above: Order Comment: [facility] has implemented the eGFR calculation approach that does not have a coefficient for race that conforms to the NKF-ASN Task Force Recommendations. Performed By: #### 4 6449 #### LAB [address], [place] [address]Alisia Choudhary M.D. [id number] Urea nitrogen [Mass/Vol] 27 mg/dL High 8-25 [facility] Comment on above: Order Comment: [facility] has implemented the eGFR calculation approach that does not have a coefficient for race that conforms to the NKF-ASN Task Force Recommendations. Performed By: #### 4 [id number] ####[facility] [address] [place], [place] [address] Abbi Choudhary M.D. [id number] Urea nitrogen/Creatinine [Mass ratio] 16.1 mg/mg Normal 10.0-20.0 [facility] Comment on above: Order Comment: [facility] has implemented the eGFR calculation approach that does not have a coefficient for race that conforms to the NKF-ASN Task Force Recommendations. Performed By: #### 4 [id number] ####[facility] [address] [place], [place] [address] Abbi Choudhary M.D. [id number] Renal function 2000 panelOrd ered By: Navneet Parr on 04-28-2024 Albumin [Mass/Vol] 3.1 g/dL Low 3.2 - 5.2 g/dL [facility] Anion gap [Moles/Vol] 15 mmol/L 10 - 2 0 mmol/L [facility] Calcium [Mass/Vol] 8.7 mg/dL 8.4 - 10. 2 mg/dL [facility] Chloride [Moles/Vol] 102 mmol/L 98 - 10 8 mmol/L [facility] Creatinine [Mass/Vol] 1.68 mg/dL High 0.40 - 1.10 mg/dL [facility] GFR/1.73 sq M.predicted CKD-EPI (S/P/Bld) [Vol rate/Area] 38 Low - PINF [facility] Comment on above: Estimated GFR was ca lculated using the 2020 CKD-EPI creatinine equation. Glucose [Mass/Vol] 408 mg/dL Critically high 65 - 9 9 mg/dL [facility] HCO3 [Moles/Vol] 24 mmol/L 21 - 32 mmol/L [facility] Interpretation and review of laboratory results Abnormal [facility] Phosphate [Mass/Vol] 3.8 mg/dL 2.7 - 4 .5 mg/dL [facility] Potassium [Moles/Vol] 4.5 mmol/L 3.5 - 5.1 mmol/L [facility] Sodium [Moles/Vol] 136 mmol/L 135 - 145 mmol/L [facility] Urea nitrogen [Mass/Vol] 27 mg/dL High 8 - 25 mg/dL [facility] Urea nitrogen/Creatinine [Mass ratio] 16.1 mg/mg 10.0 - 20.0 [facility] has implemented the eGFR calculation approach that does not have a coefficient for race that conforms to the NKF-ASN Task Force Recommendations. [facility] CBCon 04-27-2024 AUTO NRBC 0.0 % Normal [facility] Comment on above: Performed By: #### 4 [id number] ####[facility] [address] [place], [place] [address] Abbi Choudhary M.D. [id number] AUTO NRBC ABS COUNT 0.00 K/mcL Normal 0.00-0.00 [facility] Comment on above: Performed By: #### 4 [id number] ####[facility] [address] [place], [place] [address] Abbi Choudhary M.D. [id number] Erythrocyte distribution width (RBC) [Ratio] 13.0 % Normal 11.6-14.8 [facility] Comment on above: Performed By: #### 4 [id number] ####[facility] [address] [place], [place] [address] Abbi Choudhary M.D. [id number] Hematocrit (Bld) [Volume fraction] 33.0 % Low 36.0-46.0 [facility] Comment on above: Performed By: #### 4 [id number] ####[facility] [address] [place], [place] [address] Abbi Choudhary M.D. [id number] Hemoglobin (Bld) [Mass/Vol] 11.3 g/dL Low 12.0-16.0 [facility] Comment on above: Performed By: #### 4 [id number] ####[facility] [address] [place] [address] Abbi Choudhary M.D. [id number] MCH (RBC) [Entitic mass] 31.1 pg Normal 26.0-34.0 [facility] Comment on above: Performed By: #### 4 [id number] ####[facility] [address] [place] [address] Abbi Choudhary M.D. [id number] MCV (RBC) [Entitic vol] 90.9 fL Normal 80.0-100.0 [facility] Comment on above: Performed By: #### 4 [id number] ####[facility] [address] [place], [place] [address] Abbi Choudhary M.D. [id number] MEAN CORPUSCULAR HEMOGLOBIN CONC 34.2 g/dL Normal 31.0-37.0 [facility] Comment on above: Performed By: #### 4 [id number] ####[facility] [address] [place], [place] [address] Abbi Choudhary M.D. [id number] Platelet mean volume (Bld) [Entitic vol] 9.6 fL Normal 9.4-12.4 [facility] Comment on above: Performed By: #### 4 [id number] ####[facility] [address] [place], [place] [address] Abbi Choudhary M.D. [id number] Platelets (Bld) [#/Vol] 287 10*3/uL Normal 150-400 [facility] Comment on above: Performed By: #### 4 [id number] ####[facility] [address] [place], [place] [address] Abbi Choudhary M.D. [id number] RBC (Bld) [#/Vol] 3.63 10*6/uL Low 4.00-5.20 [facility] Comment on above: Performed By: #### 4 [id number] ####[facility] [address] [place], [place] [address] Abbi Choudhary M.D. [id number] WBC (Bld) [#/Vol] 9.85 10*3/uL Normal 4.50-11.00 [facility] Comment on above: Performed By: #### 4 [id number] ####[facility] [address] [place], [place] [address] Abbi Choudhary M.D. [id number] CBC panel Auto (Bld)on 04-27 Erythrocyte distribution width (RBC) [Entitic vol] 13 % 11.6 - 14.8 % [facility] Hematocrit (Bld) [Volume fraction] 33 % Low 36.0 - 46.0 % [facility] Hemoglobin (Bld) [Mass/Vol] 11.3 g/dL Low 12.0 - 16.0 g/dL [facility] Interpretation and review of laboratory results Abnormal [facility] MCH (RBC) [Entitic mass] 31.1 pg 26.0 - 34.0 pg [facility] MCHC (RBC) [Mass/Vol] 34.2 g/dL 31.0 - 37.0 g/dL [facility] MCV (RBC) [Entitic vol] 90.9 fL 80.0 - 100.0 fL [facility] Nucleated RBC (Bld) [#/Vol] 0 10*3/uL [facility] Nucleated RBC/100 WBC (Bld) [Ratio] 0 % [facility] Platelet mean volume (Bld) [Entitic vol] 9.6 fL 9.4 - 12.4 fL [facility] Platelets (Bld) [#/Vol] 287 10*3/uL [facility] RBC (Bld) [#/Vol] 3.63 10*6/uL Low [facility] WBC (Bld) [#/Vol] 9.85 10*3/uL [facility] eah [facility] CONSULTon 04-27-2024 CONSULT Normal [facility] Glucose (Bld) [Mass/Vol]on 1 06-28-2023 Glucose [Mass/Vol] 241 mg/dL High 65 - 99 mg/dL [facility] Interpretation and review of laboratory results Abnormal [facility] Glucose [Mass/Vol] 191 mg/dL High 65 - 99 mg/dL [facility] Interpretation and review of laboratory results Abnormal [facility] Glucose [Mass/Vol] 184 mg/dL High 65 - 99 mg/dL [facility] Interpretation and review of laboratory results Abnormal [facility] Glucose [Mass/Vol] 315 mg/dL High 65 - 99 mg/dL [facility] Interpretation and review of laboratory results Abnormal [facility] Glucose [Mass/Vol] 355 mg/dL High 65 - 99 mg/dL [facility] Interpretation and review of laboratory results Abnormal [facility] Glucose [Mass/Vol] 336 mg/dL High 65 - 99 mg/dL [facility] Interpretation and review of laboratory results Abnormal [facility] Gold Topon 04-27-2024 Extra Tube Hold for add-ons. [place] Comment on above: Auto resulted. [facility] POC GLUCOSE - [facility] 024 Glucose [Mass/Vol] 241 mg/dL High [address] [place] [address] Comment on above: Performed By: #### 4 [id number] ####[facility] [address] [place], [place] [address] Abbi Choudhary M.D. [id number] Glucose [Mass/Vol] 191 mg/dL [address] Comment on above: Performed By: #### 4 [id number] ####[facility] [address] [place], [place] [address] Abbi Choudhary M.D. [id number] Glucose [Mass/Vol] 184 mg/dL [address] Comment on above: Performed By: #### 4 [id number] ####[facility] [address] [place], [place] [address] Abbi Choudhary M.D. [id number] Glucose [Mass/Vol] 315 mg/dL [address] Comment on above: Performed By: #### 4 [id number] ####[facility] [address] [place], [place] [address] Abbi Choudhary M.D. [id number] Glucose [Mass/Vol] 355 mg/dL High 65-99 [facility] Comment on above: Performed By: #### 4 [id number] ####[facility] [address] [place], [place] [address] Abbi Choudhary M.D. [id number] Glucose [Mass/Vol] 336 mg/dL High 65-[address] [place] [address] Comment on above: Performed By: #### 4 [id number] ####[facility] [address] [place], [place] [address] Abbi Choudhary M.D. [id number] RENAL FUNCTION PANELon 04-27 Albumin [Mass/Vol] 3.7 g/dL Normal 3.2-5.2 [facility] Comment on above: Order Comment: [facility] has implemented the eGFR calculation approach that does not have a coefficient for race that conforms to the NKF-ASN Task Force Recommendations. Performed By: #### 4 [id number] ####[facility] [address] [place], [place] [address] Abbi Choudhary M.D. [id number] Anion gap [Moles/Vol] 17 mmol/L Normal 10-20 [facility] Comment on above: Order Comment: [facility] has implemented the eGFR calculation approach that does not have a coefficient for race that conforms to the NKF-ASN Task Force Recommendations. Performed By: #### 4 [id number] ####[facility] [address] [place], [place] [address] Abbi Choudhary M.D. [id number] Calcium [Mass/Vol] 8.7 mg/dL Normal 8.4-10.2 [facility] Comment on above: Order Comment: [facility] has implemented the eGFR calculation approach that does not have a coefficient for race that conforms to the NKF-ASN Task Force Recommendations. Performed By: #### 4 [id number] ####[facility] [address] [place], [place] [address] Abbi Choudhary M.D. [id number] Chloride [Moles/Vol] 99 mmol/L Normal 98-108 [facility] Comment on above: Order Comment: [facility] has implemented the eGFR calculation approach that does not have a coefficient for race that conforms to the NKF-ASN Task Force Recommendations. Performed By: #### 4 [id number] ####[facility] [address] [place], [place] [address] Abbi Choudhary M.D. [id number] Creatinine [Mass/Vol] 1.34 mg/dL High 0.40-1.10 [facility] Comment on above: Order Comment: [facility] has implemented the eGFR calculation approach that does not have a coefficient for race that conforms to the NKF-ASN Task Force Recommendations. Performed By: #### 4 [id number] ####[facility] [address] [place] [address] Abbi Choudhary M.D. [id number] EGFR 49 mL/min/1.73 m2 Low >=60 [facility] Comment on above: Order Comment: [facility] has implemented the eGFR calculation approach that does not have a coefficient for race that conforms to the NKF-ASN Task Force Recommendations. Result Comment: Lorie mated GFR was calculated using the 2020 CKD-EPI creatinine equation. Performed By: #### 4 [id number] ####[facility] [address] [place], [place] [address] Abbi Choudhary M.D. [id number] Glucose [Mass/Vol] 361 mg/dL High 65-99 [facility] Comment on above: Order Comment: [facility] has implemented the eGFR calculation approach that does not have a coefficient for race that conforms to the NKF-ASN Task Force Recommendations. Performed By: #### 4 [id number] ####[facility] [address] [place], [place] [address] Abbi Choudhary M.D. [id number] HCO3 (Bld) [Moles/Vol] 23 mmol/L Normal 21-32 [facility] Comment on above: Order Comment: [facility] has implemented the eGFR calculation approach that does not have a coefficient for race that conforms to the NKF-ASN Task Force Recommendations. Performed By: #### 4 6449 ####[facility] [address] [place], [place] [address] Abbi Choudhary M.D. [id number] Phosphate [Mass/Vol] 2.4 mg/dL Low 2.7-4.5 [facility] Comment on above: Order Comment: [facility] has implemented the eGFR calculation approach that does not have a coefficient for race that conforms to the NKF-ASN Task Force Recommendations. Performed By: #### 4 6449 ####[facility] [address] [place], [place] [address] Abbi Choudhary M.D. [id number] Potassium [Moles/Vol] 4.3 mmol/L Normal 3.5-5.1 [facility] Comment on above: Order Comment: [facility] has implemented the eGFR calculation approach that does not have a coefficient for race that conforms to the NKF-ASN Task Force Recommendations. Performed By: #### 4 6449 ####[facility] [address] [place], [place] [address] Abbi Choudhary M.D. [id number] Sodium [Moles/Vol] 135 mmol/L Normal 135-145 [facility] Comment on above: Order Comment: [facility] has implemented the eGFR calculation approach that does not have a coefficient for race that conforms to the NKF-ASN Task Force Recommendations. Performed By: #### 4 [id number] ####[facility] [address] [place], [place] [address] Abbi Choudhary M.D. [id number] Urea nitrogen [Mass/Vol] 26 mg/dL High 8-25 [facility] Comment on above: Order Comment: [facility] has implemented the eGFR calculation approach that does not have a coefficient for race that conforms to the NKF-ASN Task Force Recommendations. Performed By: #### 4 6449 ####[facility] [address] [place], [place] [address] Abbi Choudhary M.D. [id number] Urea nitrogen/Creatinine [Mass ratio] 19.4 mg/mg Normal 10.0-20.0 [facility] Comment on above: Order Comment: [facility] has implemented the eGFR calculation approach that does not have a coefficient for race that conforms to the NKF-ASN Task Force Recommendations. Performed By: #### 4 [id number] ####[facility] [address] [place], [place] [address] Abbi Choudhary M.D. [id number] Renal function 2000 panelon 04-27-2024 Albumin [Mass/Vol] 3.7 g/dL 3.2 - 5.2 g/dL [facility] Anion gap [Moles/Vol] 17 mmol/L 10 - 2 0 mmol/L [facility] Calcium [Mass/Vol] 8.7 mg/dL 8.4 - 10. 2 mg/dL [facility] Chloride [Moles/Vol] 99 mmol/L 98 - 10 8 mmol/L [facility] Creatinine [Mass/Vol] 1.34 mg/dL High 0.40 - 1.10 mg/dL [facility] GFR/1.73 sq M.predicted CKD-EPI (S/P/Bld) [Vol rate/Area] 49 Low - PINF [facility] Comment on above: Estimated GFR was ca lculated using the 2020 CKD-EPI creatinine equation. Glucose [Mass/Vol] 361 mg/dL High 65 - 99 mg/dL [facility] HCO3 [Moles/Vol] 23 mmol/L 21 - 32 mmol/L [facility] Interpretation and review of laboratory results Abnormal [facility] Phosphate [Mass/Vol] 2.4 mg/dL Low 2.7 - 4 .5 mg/dL [facility] Potassium [Moles/Vol] 4.3 mmol/L 3.5 - 5.1 mmol/L [facility] Sodium [Moles/Vol] 135 mmol/L 135 - 145 mmol/L [facility] Urea nitrogen [Mass/Vol] 26 mg/dL High 8 - 25 mg/dL [facility] Urea nitrogen/Creatinine [Mass ratio] 19.4 mg/mg 10.0 - 20.0 [facility] has implemented the eGFR calculation approach that does not have a coefficient for race that conforms to the NKF-ASN Task Force Recommendations. [facility] BASIC METABOLIC PANELon Anion gap [Moles/Vol] 19 mmol/L Normal 10-20 [facility] Comment on above: Order Comment: [facility] has implemented the eGFR calculation approach that does not have a coefficient for race that conforms to the NKF-ASN Task Force Recommendations. Performed By: #### 4 [id number] ####[facility] [address] [place], [place] [address] Abbi Choudhary M.D. [id number] Calcium [Mass/Vol] 8.9 mg/dL Normal 8.4-10.2 [facility] Comment on above: Order Comment: [facility] has implemented the eGFR calculation approach that does not have a coefficient for race that conforms to the NKF-ASN Task Force Recommendations. Performed By: #### 4 [id number] ####[facility] [address] [place], [place] [address] Abbi Choudhary M.D. [id number] Chloride [Moles/Vol] 99 mmol/L Normal 98-108 [facility] Comment on above: Order Comment: [facility] has implemented the eGFR calculation approach that does not have a coefficient for race that conforms to the NKF-ASN Task Force Recommendations. Performed By: #### 4 [id number] ####[facility] [address] [place], [place] [address] Abbi Choudhary M.D. [id number] Creatinine [Mass/Vol] 1.66 mg/dL High 0.40-1.10 [facility] Comment on above: Order Comment: [facility] has implemented the eGFR calculation approach that does not have a coefficient for race that conforms to the NKF-ASN Task Force Recommendations. Performed By: #### 4 [id number] ####[facility] [address] [place], [place] [address] Abbi Choudhary M.D. [id number] EGFR 38 mL/min/1.73 m2 Low >=60 [facility] Comment on above: Order Comment: [facility] has implemented the eGFR calculation approach that does not have a coefficient for race that conforms to the NKF-ASN Task Force Recommendations. Result Comment: Lorie mated GFR was calculated using the 2020 CKD-EPI creatinine equation. Performed By: #### 4 [id number] ####[facility] [address] [place], [place] [address] Abbi Choudhary M.D. [id number] Glucose [Mass/Vol] 293 mg/dL High 65-99 [facility] Comment on above: Order Comment: [facility] has implemented the eGFR calculation approach that does not have a coefficient for race that conforms to the NKF-ASN Task Force Recommendations. Performed By: #### 4 [id number] ####[facility] [address] [place], [place] [address] Abbi Choudhary M.D. [id number] HCO3 (Bld) [Moles/Vol] 24 mmol/L Normal 21-32 [facility] Comment on above: Order Comment: [facility] has implemented the eGFR calculation approach that does not have a coefficient for race that conforms to the NKF-ASN Task Force Recommendations. Performed By: #### 4 [id number] ####[facility] [address] [place], [place] [address] Abbi Choudhary M.D. [id number] Potassium [Moles/Vol] 4.3 mmol/L Normal 3.5-5.1 [facility] Comment on above: Order Comment: [facility] has implemented the eGFR calculation approach that does not have a coefficient for race that conforms to the NKF-ASN Task Force Recommendations. Performed By: #### 4 [id number] ####[facility] [address] [place], [place] [address] Abbi Choudhary M.D. [id number] Sodium [Moles/Vol] 138 mmol/L Normal 135-145 [facility] Comment on above: Order Comment: [facility] has implemented the eGFR calculation approach that does not have a coefficient for race that conforms to the NKF-ASN Task Force Recommendations. Performed By: #### 4 [id number] ####[facility] [address] [place], [place] [address] Abbi Choudhary M.D. [id number] Urea nitrogen [Mass/Vol] 30 mg/dL High 8-25 [facility] Comment on above: Order Comment: [facility] has implemented the eGFR calculation approach that does not have a coefficient for race that conforms to the NKF-ASN Task Force Recommendations. Performed By: #### 4 [id number] ####[facility] [address] [place], [place] [address] Abbi Choudhary M.D. [id number] Urea nitrogen/Creatinine [Mass ratio] 18.1 mg/mg Normal 10.0-20.0 [facility] Comment on above: Order Comment: [facility] has implemented the eGFR calculation approach that does not have a coefficient for race that conforms to the NKF-ASN Task Force Recommendations. Performed By: #### 4 [id number] ####[facility] [address] [place], [place] [address] Abbi Choudhary M.D. [id number] Basic metabolic 2000 panelon 04-26-2024 Anion gap [Moles/Vol] 19 mmol/L 10 - 2 0 mmol/L [facility] Calcium [Mass/Vol] 8.9 mg/dL 8.4 - 10. 2 mg/dL [facility] Chloride [Moles/Vol] 99 mmol/L 98 - 10 8 mmol/L [facility] Creatinine [Mass/Vol] 1.66 mg/dL High 0.40 - 1.10 mg/dL [facility] GFR/1.73 sq M.predicted CKD-EPI (S/P/Bld) [Vol rate/Area] 38 Low - PINF [facility] Comment on above: Estimated GFR was ca lculated using the 2020 CKD-EPI creatinine equation. Glucose [Mass/Vol] 293 mg/dL High 65 - 99 mg/dL [facility] HCO3 [Moles/Vol] 24 mmol/L 21 - 32 mmol/L [facility] Potassium [Moles/Vol] 4.3 mmol/L 3.5 - 5.1 mmol/L [facility] Sodium [Moles/Vol] 138 mmol/L 135 - 145 mmol/L [facility] Urea nitrogen [Mass/Vol] 30 mg/dL High 8 - 25 mg/dL [facility] Urea nitrogen/Creatinine [Mass ratio] 18.1 mg/mg 10.0 - 20.0 [facility] Services has implemented the eGFR calculation approach that does not have a coefficient for race that conforms to the NKF-ASN Task Force Recommendations. [facility] CBC Auto Differentialon Basophils (Bld) [#/Vol] 0.05 10*3/uL [facility] Basophils/100 WBC (Bld) 0.5 % [facility] Eosinophils (Bld) [#/Vol] 0.18 10*3/uL [facility] Eosinophils/100 WBC (Bld) 1.7 % [facility] Erythrocyte distribution width (RBC) [Entitic vol] 13.2 % 11.6 - 14.8 % [facility] Hematocrit (Bld) [Volume fraction] 34.9 % Low 36.0 - 46.0 % [facility] Hemoglobin (Bld) [Mass/Vol] 11.9 g/dL Low 12.0 - 16.0 g/dL [facility] Immature granulocytes (Bld) [#/Vol] 0.09 10*3/uL [facility] Immature granulocytes/100 WBC (Bld) 0.9 % [facility] Comment on above: The IG parameter is the percentage of metamyelocytes, myelocytes and promyelocytes. An immature granulocyte count (IG) of 1% or more suggests the possibility of infection, an IG count of 3% is very likely related to an infection. Interpretation and review of laboratory results Abnormal [facility] Lymphocytes (Bld) [#/Vol] 1.6 10*3/uL [facility] Lymphocytes/100 WBC (Bld) 15.3 % [facility] MCH (RBC) [Entitic mass] 31.2 pg 26.0 - 34.0 pg [facility] MCHC (RBC) [Mass/Vol] 34.1 g/dL 31.0 - 37.0 g/dL [facility] MCV (RBC) [Entitic vol] 91.4 fL 80.0 - 100.0 fL [facility] Monocytes (Bld) [#/Vol] 0.5 10*3/uL [facility] Monocytes/100 WBC (Bld) 4.8 % [facility] Neutrophils (Bld) [#/Vol] 8.04 10*3/uL High [facility] Neutrophils/100 WBC (Bld) 76.8 % [facility] Nucleated RBC (Bld) [#/Vol] 0 10*3/uL [facility] Nucleated RBC/100 WBC (Bld) [Ratio] 0 % [facility] Platelet mean volume (Bld) [Entitic vol] 9.8 fL 9.4 - 12.4 fL [facility] Platelets (Bld) [#/Vol] 294 10*3/uL [facility] RBC (Bld) [#/Vol] 3.82 10*6/uL Low [facility] ealth WBC (Bld) [#/Vol] 10.46 10*3/uL [facility] CBC WITH AUTO DIFFERENTIALon 04-26-2024 AUTO NRBC 0.0 % Normal [facility] Comment on above: Performed By: #### L [id number] ####[facility] [address] [address] Abbi Choudhary M.D. [id number] AUTO NRBC ABS COUNT 0.00 K/mcL Normal 0.00-0.00 [facility] Comment on above: Performed By: #### L [id number] ####[facility] [address] [address] Abbi Choudhary M.D. [id number] BASOPHILS ABSOLUTE COUNT 0.05 K/mcL Normal 0.00-0.30 [facility] Comment on above: Performed By: #### L [id number] ####[facility] [address] [address] Abbi Choudhary M.D. [id number] Basophils/100 WBC (Bld) 0.5 % Normal [facility] Comment on above: Performed By: #### L [id number] ####[facility] [address] [address] Abbi Choudhary M.D. [id number] Eosinophils (Bld) [#/Vol] 0.18 10*3/uL Normal 0.00-0.50 [facility] Comment on above: Performed By: #### L [id number] ####[facility] [address] [address] Abbi Choudhary M.D. [id number] Eosinophils/100 WBC (Bld) 1.7 % Normal [facility] Comment on above: Performed By: #### L [id number] ####[facility] [address] [address] Abbi Choudhary M.D. [id number] Erythrocyte distribution width (RBC) [Ratio] 13.2 % Normal 11.6-14.8 [facility] Comment on above: Performed By: #### L [id number] ####[facility] [address] [address] Abbi Choudhary M.D. [id number] Hematocrit (Bld) [Volume fraction] 34.9 % Low 36.0-46.0 [facility] Comment on above: Performed By: #### L [id number] ####[facility] [address] [place], [place] [address] Abbi Choudhary M.D. [id number] Hemoglobin (Bld) [Mass/Vol] 11.9 g/dL Low 12.0-16.0 [facility] Comment on above: Performed By: #### L [id number] ####[facility] [address] [place], [place] [address] Abbi Choudhary M.D. [id number] IG ABSOLUTE 0.09 K/mcL Normal 0.00-0.30 [facility] Comment on above: Performed By: #### L [id number] ####[facility] [address] [address] Abbi Choudhary M.D. [id number] IG PERCENT 0.90 % Normal [facility] Comment on above: Result Comment: The IG parameter is the percentage of metamyelocytes, myelocytes and promyelocytes. An immature granulocyte count (IG) of 1% or more suggests the possibility of infection, an IG count of 3% is very likely related to an infection. Performed By: #### L [id number] ####[facility] [address] [address] Abbi Choudhary M.D. [id number] Lymphocytes (Bld) [#/Vol] 1.60 10*3/uL Normal 0.90-4.00 [facility] Comment on above: Performed By: #### L [id number] ####[facility] [address] [place], [place] [address] Abbi Choudhary M.D. [id number] Lymphocytes/100 WBC (Bld) 15.3 % Normal [facility] Comment on above: Performed By: #### L [id number] ####[facility] [address] [place], [place] [address] Abbi Choudhary M.D. [id number] MCH (RBC) [Entitic mass] 31.2 pg Normal 26.0-34.0 [facility] Comment on above: Performed By: #### L [id number] ####[facility] [address] [address] Abbi Choudhary M.D. [id number] MCV (RBC) [Entitic vol] 91.4 fL Normal 80.0-100.0 [facility] Comment on above: Performed By: #### L [id number] ####[facility] [address] [place], [place] [address] Abbi Choudhary M.D. [id number] MEAN CORPUSCULAR HEMOGLOBIN CONC 34.1 g/dL Normal 31.0-37.0 [facility] Comment on above: Performed By: #### L [id number] ####[facility] [address] [address] Abbi Choudhary M.D. [id number] Monocytes (Bld) [#/Vol] 0.50 10*3/uL Normal 0.30-0.90 [facility] Comment on above: Performed By: #### L [id number] ####[facility] [address] [address] Abbi Choudhary M.D. [id number] Monocytes/100 WBC (Bld) 4.8 % Normal [facility] Comment on above: Performed By: #### L [id number] ####[facility] [address] [address] Abbi Choudhary M.D. [id number] NEUTROPHILS ABSOLUTE COUNT 8.04 K/mcL High 1.70-7.00 [facility] Comment on above: Performed By: #### L [id number] ####[facility] [address] [place], [place] [address] Abbi Choudhary M.D. [id number] Neutrophils/100 WBC (Bld) 76.8 % Normal [facility] Comment on above: Performed By: #### L [id number] ####[facility] [address] [place], [place] [address] Abbi Choudhary M.D. [id number] Platelet mean volume (Bld) [Entitic vol] 9.8 fL Normal 9.4-12.4 [facility] Comment on above: Performed By: #### L [id number] ####[facility] [address] [place] [id number] Abbi Choudhary M.D. [id number] Platelets (Bld) [#/Vol] 294 10*3/uL Normal 150-400 [facility] Comment on above: Performed By: #### L [id number] ####[facility] [address] [place], [place] [address] Abbi Choudhary M.D. [id number] RBC (Bld) [#/Vol] 3.82 10*6/uL Low 4.00-5.20 [facility] Comment on above: Performed By: #### L [id number] ####[facility] [address] [place], [place] [address] Abbi Choudhary M.D. [id number] WBC (Bld) [#/Vol] 10.46 10*3/uL Normal 4.50-11.00 [facility] Comment on above: Performed By: #### L [id number] ####[facility] [address] [place], [place] [address] Abbi Choudhary M.D. [id number] CRP, INFLAMMATIONon 04-26-20 24 CRP [Mass/Vol] 91.8 mg/L High 0.0-10.0 [facility] Comment on above: Performed By: #### 4 [id number] ####[facility] [address] [place], [place] [address] Abbi Choudhary M.D. [id number] CRP, Inflammationon 04-26-20 24 CRP [Mass/Vol] 91.8 mg/L High 0.0 - 10.0 mg/L [facility] Dark Green TopOrdered By: Sa sabrina Aguilar on 04-26-2024 Extra Tube n [facility] ED Prov Noteon 04-26-2024 ED Prov Note Normal [facility] ESR Westergren method (Bld) [Velocity]on 04-26-2024 ESR (Bld) [Velocity] 58 mm/h High [facility] Interpretation and review of laboratory results Abnormal [facility] H AND Paulino 04-26-2024 H AND P Normal [facility] No Panel Informationon 04-26 Extra Tube Hold for add-ons. [place] Comment on above: Auto resulted. [facility] Interpretation and review of laboratory results Abnormal [facility] SEDIMENTATION RATEon 024 SEDIMENTATION RATE, ERYTHROCYTE 58 mm/hr High 0-20 [facility] Comment on above: Performed By: #### 4 [id number] ####[facility] [address] [address] Abbi Choudhary M.D. [id number] XR FOOT LEFT 3+ VIEWS (STAND ILIA)on 04-26-2024 XR FOOT LEFT 3+ VIEWS (STANDARD) Normal [facility] Comment on above: Order Comment: Injur y/Trauma or Illness?:Illness/OtherPatient arrives with EMS ([facility]). She ambulated off of EMS cot with assistance to bed. 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 Patient states that she has been on antibiotics since surgery but does not know the name of what she has been taking. She states her dressing was changed 2 days ago. She reports redness, pain and clear drainage.How long have you had these symptoms (acute/chronic)?:AcuteReason for exam?:Patient arrives with EMS ([facility]). She ambulated off of EMS cot with assistance to bed. 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 Patient states that she has been on antibiotics since surgery but does not know the name of what she has been taking. She states her dressing was changed 2 days ago. She reports redness, pain and clear drainage.History of cancer?:uSurgeries, chemotherapy, or radiation?:pacemakerType of Exam?:InitialAdditional signs and symptoms?:Patient arrives with EMS ([facility]). She ambulated off of EMS cot with assistance to bed. 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 Patient states that she has been on antibiotics since surgery but does not know the name of what she has been taking. She states her dressing was changed 2 days ago. She reports redness, pain and clear drainage. XR Foot - left 3 Viewson FINDINGS/ 1. Prior amputation of the 1st distal phalanx is again noted. Soft tissue swelling is noted in the great toe, with possible skin wound/ulcer in the distal amputation site. No radiopaque foreign body or abnormal gas bubbles are seen. 2. No bony erosion or radiographic signs of osteomyelitis (though MRI is more sensitive for this diagnosis). 3. Moderate tibiotalar joint osteoarthrosis is noted, with joint space narrowing, small marginal osteophytes, and probable small subchondral cysts. 4. Lateral plate and screws internally fix the distal left fibula to near anatomic alignment, and this orthopedic hardware is incompletely imaged. 5. No acute fracture, malalignment, or other acute bony abnormality is seen. Workstation ID: [id number] [employer] EXAMINATION: XR FOOT LEFT 3+ VIEWS (STANDARD) 04/26/2024 8:26 pm HISTORY: ORDERING SYSTEM PROVIDED HISTORY: post op eval, TECHNOLOGIST PROVIDED HISTORY: Illness/Other Reason for exam: Patient arrives with EMS ([facility]). She ambulated off of EMS cot with assistance to bed. 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 Patient states that she has been on antibiotics since surgery but does not know the name of what she has been taking. She states her dressing was changed 2 days ago. She reports redness, pain and clear drainage. Cancer History: u Surgery, RadiationHistory: pacemaker Encounter Type: Initial Additional signs and symptoms: Patient arrives with EMS ([facility]). She ambulated off of EMS cot with assistance to bed. 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 Patient states that she has been on antibiotics since surgery but does not know the name of what she has been taking. She states her dressing was changed 2 days ago. She reports redness, pain and clear drainage. ORDERING SYSTEM PROVIDED DIAGNOSIS CODES: COMPARISON: 04/01/2024. [facility] Agustin Andrea MD - 04/26/2024 EXAMINATION: XR FOOT LEFT 3+ VIEWS (STANDARD) 04/26/2024 8:26 pm HISTORY: ORDERING SYSTEM PROVIDED HISTORY: post op eval, TECHNOLOGIST PROVIDED HISTORY: Illness/Other Reason for exam: Patient arrives with EMS ([facility]). She ambulated off of EMS cot with assistance to bed. 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 Patient states that she has been on antibiotics since surgery but does not know the name of what she has been taking. She states her dressing was changed 2 days ago. She reports redness, pain and clear drainage. Cancer History: u Surgery, RadiationHistory: pacemaker Encounter Type: Initial Additional signs and symptoms: Patient arrives with EMS ([facility]). She ambulated off of EMS cot with assistance to bed. 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 Patient states that she has been on antibiotics since surgery but does not know the name of what she has been taking. She states her dressing was changed 2 days ago. She reports redness, pain and clear drainage. ORDERING SYSTEM PROVIDED DIAGNOSIS CODES: COMPARISON: 04/01/2024. IMPRESSION: FINDINGS/ 1. Prior amputation of the 1st distal phalanx is again noted. Soft tissue swelling is noted in the great toe, with possible skin wound/ulcer in the distal amputation site. No radiopaque foreign body or abnormal gas bubbles are seen. 2. No bony erosion or radiographic signs of osteomyelitis (though MRI is more sensitive for this diagnosis). 3. Moderate tibiotalar joint osteoarthrosis is noted, with joint space narrowing, small marginal osteophytes, and probable small subchondral cysts. 4. Lateral plate and screws internally fix the distal left fibula to near anatomic alignment, and this orthopedic hardware is incompletely imaged. 5. No acute fracture, malalignment, or other acute bony abnormality is seen. Workstation ID: [id number] [facility] Radiology Study observation (narrative) [facility] XR Foot - left 3 ViewsOrdere d By: Agustin Andrea on 04-26-2024 [facility] AUTO NRBC 0.0 % Normal [facility] Comment on above: Performed By: #### 4 [id number] ####[facility] [address] [place], [place] [address] Abbi Choudhary M.D. [id number] AUTO NRBC ABS COUNT 0.00 K/mcL Normal 0.00-0.00 [facility] Comment on above: Performed By: #### 4 [id number] ####[facility] [address] [place], [place] [address] Abbi Choudhary M.D. [id number] Erythrocyte distribution width (RBC) [Ratio] 13.1 % Normal 11.6-14.8 [facility] Comment on above: Performed By: #### 4 [id number] ####[facility] [address] [place], [place] [address] Abbi Choudhary M.D. [id number] Hematocrit (Bld) [Volume fraction] 26.7 % Low 36.0-46.0 [facility] Comment on above: Performed By: #### 4 [id number] ####[facility] [address] [place], [place] [address] Abbi Choudhary M.D. [id number] Hemoglobin (Bld) [Mass/Vol] 8.9 g/dL Low 12.0-16.0 [facility] Comment on above: Performed By: #### 4 [id number] ####[facility] [address] [place], [place] [address] Abbi Choudhary M.D. [id number] MCH (RBC) [Entitic mass] 31.1 pg Normal 26.0-34.0 [facility] Comment on above: Performed By: #### 4 [id number] ####[facility] [address] [place], [place] [address] Abbi Choudhary M.D. [id number] MCV (RBC) [Entitic vol] 93.4 fL Normal 80.0-100.0 [facility] Comment on above: Performed By: #### 4 [id number] ####[facility] [address] [place], [place] [address] Abbi Choudhary M.D. [id number] MEAN CORPUSCULAR HEMOGLOBIN CONC 33.3 g/dL Normal 31.0-37.0 [facility] Comment on above: Performed By: #### 4 [id number] ####[facility] [address] [place], [place] [address] Abbi Choudhary M.D. [id number] Platelet mean volume (Bld) [Entitic vol] 9.6 fL Normal 9.4-12.4 [facility] Comment on above: Performed By: #### 4 [id number] ####[facility] [address] [place], [place] [address] Abbi Choudhary M.D. [id number] Platelets (Bld) [#/Vol] 256 10*3/uL Normal 150-400 [facility] Comment on above: Performed By: #### 4 [id number] ####[facility] [address] [place], [place] [address] Abbi Choudhary M.D. [id number] RBC (Bld) [#/Vol] 2.86 10*6/uL Low 4.00-5.20 [facility] Comment on above: Performed By: #### 4 [id number] ####[facility] [address] [place], [place] [address] Abbi Choudhary M.D. [id number] WBC (Bld) [#/Vol] 7.11 10*3/uL Normal 4.50-11.00 [facility] Comment on above: Performed By: #### 4 [id number] ####[facility] [address] [place], [place] [address] Abbi Choudhary M.D. [id number] CBC panel Auto (Bld)on 04-04 Erythrocyte distribution width (RBC) [Entitic vol] 13.1 % 11.6 - 14.8 % [facility] Hematocrit (Bld) [Volume fraction] 26.7 % Low 36.0 - 46.0 % [facility] Hemoglobin (Bld) [Mass/Vol] 8.9 g/dL Low 12.0 - 16.0 g/dL [facility] Interpretation and review of laboratory results Abnormal [facility] MCH (RBC) [Entitic mass] 31.1 pg 26.0 - 34.0 pg [facility] MCHC (RBC) [Mass/Vol] 33.3 g/dL 31.0 - 37.0 g/dL [facility] MCV (RBC) [Entitic vol] 93.4 fL 80.0 - 100.0 fL [facility] Nucleated RBC (Bld) [#/Vol] 0 10*3/uL [facility] Nucleated RBC/100 WBC (Bld) [Ratio] 0 % [facility] Platelet mean volume (Bld) [Entitic vol] 9.6 fL 9.4 - 12.4 fL [facility] Platelets (Bld) [#/Vol] 256 10*3/uL [facility] RBC (Bld) [#/Vol] 2.86 10*6/uL Low [facility] WBC (Bld) [#/Vol] 7.11 10*3/uL [facility] Disch Sum[place] 04-04-2024 Disch Summ Normal [facility] RENAL FUNCTION PANELon 04-04 Albumin [Mass/Vol] 3.2 g/dL Normal 3.2-5.2 [facility] Comment on above: Order Comment: [facility] Services has implemented the eGFR calculation approach that does not have a coefficient for race that conforms to the NKF-ASN Task Force Recommendations. Performed By: #### 4 6449 ####[facility] [address] [place], [place] [address] Abbi Choudhary M.D. [id number] Anion gap [Moles/Vol] 12 mmol/L Normal 10-20 [facility] Comment on above: Order Comment: [facility] has implemented the eGFR calculation approach that does not have a coefficient for race that conforms to the NKF-ASN Task Force Recommendations. Performed By: #### 4 6449 ####[facility] [address] [place], [place] [address] Abbi Choudhary M.D. [id number] Calcium [Mass/Vol] 8.4 mg/dL Normal 8.4-10.2 [facility] Comment on above: Order Comment: [facility] has implemented the eGFR calculation approach that does not have a coefficient for race that conforms to the NKF-ASN Task Force Recommendations. Performed By: #### 4 6449 ####[facility] [address] [place], [place] [address] Abbi Choudhary M.D. [id number] Chloride [Moles/Vol] 105 mmol/L Normal 98-108 [facility] Comment on above: Order Comment: [facility] has implemented the eGFR calculation approach that does not have a coefficient for race that conforms to the NKF-ASN Task Force Recommendations. Performed By: #### 4 6449 ####[facility] [address] [place], [place] [address] Abbi Choudhary M.D. [id number] Creatinine [Mass/Vol] 1.34 mg/dL High 0.40-1.10 [facility] Comment on above: Order Comment: [facility] has implemented the eGFR calculation approach that does not have a coefficient for race that conforms to the NKF-ASN Task Force Recommendations. Performed By: #### 4 6449 ####[facility] [address] [place], [place] [address] Abbi Choudhary M.D. [id number] EGFR 50 mL/min/1.73 m2 Low >=60 [facility] Comment on above: Order Comment: [facility] has implemented the eGFR calculation approach that does not have a coefficient for race that conforms to the NKF-ASN Task Force Recommendations. Result Comment: Lorie mated GFR was calculated using the 2020 CKD-EPI creatinine equation. Performed By: #### 4 [id number] ####[facility] [address] [place], [place] [address] Abbi Choudhary M.D. [id number] Glucose [Mass/Vol] 245 mg/dL High 65-99 [facility] Comment on above: Order Comment: [facility] has implemented the eGFR calculation approach that does not have a coefficient for race that conforms to the NKF-ASN Task Force Recommendations. Performed By: #### 4 6449 ####[facility] [address] [place], [place] [address] Abbi Choudhary M.D. [id number] HCO3 (Bld) [Moles/Vol] 28 mmol/L Normal 21-32 [facility] Comment on above: Order Comment: [facility] has implemented the eGFR calculation approach that does not have a coefficient for race that conforms to the NKF-ASN Task Force Recommendations. Performed By: #### 4 6449 ####[facility] [address] [place], [place] [address] Abbi Choudhary M.D. [id number] Phosphate [Mass/Vol] 3.8 mg/dL Normal 2.7-4.5 [facility] Comment on above: Order Comment: [facility] has implemented the eGFR calculation approach that does not have a coefficient for race that conforms to the NKF-ASN Task Force Recommendations. Performed By: #### 4 6449 ####[facility] [address] [place] [id number] Abbi Choudhary M.D. [id number] Potassium [Moles/Vol] 4.0 mmol/L Normal 3.5-5.1 [facility] Comment on above: Order Comment: [facility] Services has implemented the eGFR calculation approach that does not have a coefficient for race that conforms to the NKF-ASN Task Force Recommendations. Performed By: #### 4 6449 ####[facility] [address] [place], [place] [address] Abbi Choudhary M.D. [id number] Sodium [Moles/Vol] 141 mmol/L Normal 135-145 [facility] Comment on above: Order Comment: [facility] Services has implemented the eGFR calculation approach that does not have a coefficient for race that conforms to the NKF-ASN Task Force Recommendations. Performed By: #### 4 6449 ####[facility] [address] [place], [place] [address] Abbi Choudhary M.D. [id number] Urea nitrogen [Mass/Vol] 20 mg/dL Normal 8-25 [facility] Comment on above: Order Comment: [facility] has implemented the eGFR calculation approach that does not have a coefficient for race that conforms to the NKF-ASN Task Force Recommendations. Performed By: #### 4 [id number] ####[facility] [address] [place], [place] [address] Abbi Choudhary M.D. [id number] Urea nitrogen/Creatinine [Mass ratio] 14.9 mg/mg Normal 10.0-20.0 [facility] Comment on above: Order Comment: [facility] has implemented the eGFR calculation approach that does not have a coefficient for race that conforms to the NKF-ASN Task Force Recommendations. Performed By: #### 4 [id number] ####[facility] [address] [place], [place] [address] Abbi Choudhary M.D. [id number] [place]al function [address] [facility] 04[place]-20[place] Albumin [Mass/Vol] 3.2 g/dL 3.2 - 5.2 g/dL [facility] Anion gap [Moles/Vol] 12 mmol/L 10 - 2 0 mmol/L [facility] Calcium [Mass/Vol] 8.4 mg/dL 8.4 - 10. 2 mg/dL [facility] Chloride [Moles/Vol] 105 mmol/L 98 - 10 8 mmol/L [facility] Creatinine [Mass/Vol] 1.34 mg/dL High 0.40 - 1.10 mg/dL [facility] GFR/1.73 sq M.predicted CKD-EPI (S/P/Bld) [Vol rate/Area] 50 Low - PINF [facility] Glucose [Mass/Vol] 245 mg/dL High 65 - 99 mg/dL [facility] HCO3 [Moles/Vol] 28 mmol/L 21 - 32 mmol/L [facility] Interpretation and review of laboratory results Abnormal [facility] Phosphate [Mass/Vol] 3.8 mg/dL 2.7 - 4 .5 mg/dL [facility] Potassium [Moles/Vol] 4 mmol/L 3.5 - 5.1 mmol/L [facility] Sodium [Moles/Vol] 141 mmol/L 135 - 145 mmol/L [facility] Urea nitrogen [Mass/Vol] 20 mg/dL 8 - 25 mg/dL [facility] Urea nitrogen/Creatinine [Mass ratio] 14.9 mg/mg 10.0 - 20.0 [facility] Surgical Site Aerobic Cultur eOrdered By: Maria T Matamoros on 04-04-2024 Bacteria identified Aer cx Nom (Unsp spec) Rare growth Staphylococcus epidermidis Abnormal [facility] Interpretation and review of laboratory results Abnormal [facility] Microscopic observation Gram stain Nom (Unsp spec) Many WBC [facility] Microscopic observation Gram stain Nom (Unsp spec) Many RBC [facility] Microscopic observation Gram stain Nom (Unsp spec) No Organisms Seen [facility] CBCon 04-03-2024 AUTO NRBC 0.0 % Normal [facility] Comment on above: Performed By: #### [id number] ####[facility] [address] [place], [place] [address] Abbi Choudhary M.D. [id number] AUTO NRBC ABS COUNT 0.00 K/mcL Normal 0.00-0.00 [facility] Comment on above: Performed By: #### 4 [id number] ####[facility] [address] [place], [place] [address] Abbi Choudhary M.D. [id number] Erythrocyte distribution width (RBC) [Ratio] 13.5 % Normal 11.6-14.8 [facility] Comment on above: Performed By: #### 4 [id number] ####[facility] [address] [place], [place] [address] Abbi Choudhary M.D. [id number] Hematocrit (Bld) [Volume fraction] 26.8 % Low 36.0-46.0 [facility] Comment on above: Performed By: #### 4 [id number] ####[facility] [address] [place], [place] [address] Abbi Choudhary M.D. [id number] Hemoglobin (Bld) [Mass/Vol] 8.8 g/dL Low 12.0-16.0 [facility] Comment on above: Performed By: #### 4 [id number] ####[facility] [address] [place], [place] [address] Abbi Choudhary M.D. [id number] MCH (RBC) [Entitic mass] 31.1 pg Normal 26.0-34.0 [facility] Comment on above: Performed By: #### 4 [id number] ####[facility] [address] [place], [place] [address] Abbi Choudhary M.D. [id number] MCV (RBC) [Entitic vol] 94.7 fL Normal 80.0-100.0 [facility] Comment on above: Performed By: #### 4 [id number] ####[facility] [address] [place], [place] [address] Abbi Choudhary M.D. [id number] MEAN CORPUSCULAR HEMOGLOBIN CONC 32.8 g/dL Normal 31.0-37.0 [facility] Comment on above: Performed By: #### 4 [id number] ####[facility] [address] [place], [place] [address] Abbi Choudhary M.D. [id number] Platelet mean volume (Bld) [Entitic vol] 9.5 fL Normal 9.4-12.4 [facility] Comment on above: Performed By: #### 4 [id number] ####[facility] [address] [place], [place] [address] Abbi Choudhary M.D. [id number] Platelets (Bld) [#/Vol] 277 10*3/uL Normal 150-400 [facility] Comment on above: Performed By: #### 4 [id number] ####[facility] [address] [place], [place] [address] Abbi Choudhary M.D. [id number] RBC (Bld) [#/Vol] 2.83 10*6/uL Low 4.00-5.20 [facility] Comment on above: Performed By: #### 4 [id number] ####[facility] [address] [place], [place] [address] Abbi Choudhary M.D. [id number] WBC (Bld) [#/Vol] 7.63 10*3/uL Normal 4.50-11.00 [facility] Comment on above: Performed By: #### 4 [id number] ####[facility] [address] [place], [place] [address] Abbi Choudhary M.D. [id number] CBC panel Auto (Bld)on 04-03 Erythrocyte distribution width (RBC) [Entitic vol] 13.5 % 11.6 - 14.8 % [facility] Hematocrit (Bld) [Volume fraction] 26.8 % Low 36.0 - 46.0 % [facility] Hemoglobin (Bld) [Mass/Vol] 8.8 g/dL Low 12.0 - 16.0 g/dL [facility] Interpretation and review of laboratory results Abnormal [facility] MCH (RBC) [Entitic mass] 31.1 pg 26.0 - 34.0 pg [facility] MCHC (RBC) [Mass/Vol] 32.8 g/dL 31.0 - 37.0 g/dL [facility] MCV (RBC) [Entitic vol] 94.7 fL 80.0 - 100.0 fL [facility] Nucleated RBC (Bld) [#/Vol] 0 10*3/uL [facility] Nucleated RBC/100 WBC (Bld) [Ratio] 0 % [facility] Platelet mean volume (Bld) [Entitic vol] 9.5 fL 9.4 - 12.4 fL [facility] Platelets (Bld) [#/Vol] 277 10*3/uL [facility] RBC (Bld) [#/Vol] 2.83 10*6/uL Low [facility] WBC (Bld) [#/Vol] 7.63 10*3/uL [facility] RENAL FUNCTION PANELon 04-03 Albumin [Mass/Vol] 3.2 g/dL Normal 3.2-5.2 [facility] Comment on above: Order Comment: [facility] has implemented the eGFR calculation approach that does not have a coefficient for race that conforms to the NKF-ASN Task Force Recommendations. Performed By: #### 4 [id number] ####[facility] [address] [place], [place] [address] Abbi Choudahry M.D. [id number] Anion gap [Moles/Vol] 11 mmol/L Normal 10-20 [facility] Comment on above: Order Comment: [facility] has implemented the eGFR calculation approach that does not have a coefficient for race that conforms to the NKF-ASN Task Force Recommendations. Performed By: #### 4 [id number] ####[facility] [address] [place], [place] [address] Abbi Choudhary M.D. [id number] Calcium [Mass/Vol] 8.2 mg/dL Low 8.4-10.2 [facility] Comment on above: Order Comment: [facility] has implemented the eGFR calculation approach that does not have a coefficient for race that conforms to the NKF-ASN Task Force Recommendations. Performed By: #### 4 [id number] ####[facility] [address] [place], [place] [address] Abbi Choudhary M.D. [id number] Chloride [Moles/Vol] 106 mmol/L Normal 98-108 [facility] Comment on above: Order Comment: [facility] has implemented the eGFR calculation approach that does not have a coefficient for race that conforms to the NKF-ASN Task Force Recommendations. Performed By: #### 4 [id number] ####[facility] [address] [place], [place] [address] Abbi Choudhary M.D. [id number] Creatinine [Mass/Vol] 1.65 mg/dL High 0.40-1.10 [facility] Comment on above: Order Comment: [facility] has implemented the eGFR calculation approach that does not have a coefficient for race that conforms to the NKF-ASN Task Force Recommendations. Performed By: #### 4 [id number] ####[facility] [address] [place], [place] Julio Choudhary M.D. [id number] EGFR 39 mL/min/1.73 m2 Low >=60 [facility] Comment on above: Order Comment: [facility] has implemented the eGFR calculation approach that does not have a coefficient for race that conforms to the NKF-ASN Task Force Recommendations. Result Comment: Lorie mated GFR was calculated using the 2020 CKD-EPI creatinine equation. Performed By: #### 4 [id number] ####[facility] [address] [place], [place] Julio Choudhary M.D. [id number] Glucose [Mass/Vol] 206 mg/dL High 65-99 [facility] Comment on above: Order Comment: [facility] has implemented the eGFR calculation approach that does not have a coefficient for race that conforms to the NKF-ASN Task Force Recommendations. Performed By: #### 4 [id number] ####[facility] [address] [place], [place] [address] Abbi Choudhary M.D. [id number] HCO3 (Bld) [Moles/Vol] 28 mmol/L Normal 21-32 [facility] Comment on above: Order Comment: [facility] has implemented the eGFR calculation approach that does not have a coefficient for race that conforms to the NKF-ASN Task Force Recommendations. Performed By: #### 4 [id number] ####[facility] [address] [place], [place] [address] Abbi Choudhary M.D. [id number] Phosphate [Mass/Vol] 4.4 mg/dL Normal 2.7-4.5 [facility] Comment on above: Order Comment: [facility] has implemented the eGFR calculation approach that does not have a coefficient for race that conforms to the NKF-ASN Task Force Recommendations. Performed By: #### 4 [id number] ####[facility] [address], [place] [address]Alisia Choudhary M.D. [id number] Potassium [Moles/Vol] 3.7 mmol/L Normal 3.5-5.1 [facility] Comment on above: Order Comment: [facility] has implemented the eGFR calculation approach that does not have a coefficient for race that conforms to the NKF-ASN Task Force Recommendations. Performed By: #### 4 [id number] ####[facility] [address] [place], [place] [address] Abbi Choudhary M.D. [id number] Sodium [Moles/Vol] 141 mmol/L Normal 135-145 [facility] Comment on above: Order Comment: [facility] has implemented the eGFR calculation approach that does not have a coefficient for race that conforms to the NKF-ASN Task Force Recommendations. Performed By: #### 4 [id number] ####[facility] [address] [place] [address] Abbi Choudhary M.D. [id number] Urea nitrogen [Mass/Vol] 19 mg/dL Normal 8-25 [facility] Comment on above: Order Comment: [facility] has implemented the eGFR calculation approach that does not have a coefficient for race that conforms to the NKF-ASN Task Force Recommendations. Performed By: #### 4 [id number] ####[facility] [address] [place], [place] [address] Abbi Choudhary M.D. [id number] Urea nitrogen/Creatinine [Mass ratio] 11.5 mg/mg Normal 10.0-20.0 [facility] Comment on above: Order Comment: [facility] has implemented the eGFR calculation approach that does not have a coefficient for race that conforms to the NKF-ASN Task Force Recommendations. Performed By: #### 4 [id number] ####[facility] [address] [place], [place] [address] Abbi Choudhary M.D. [id number] Renal function [facility] 04-03-2024 Albumin [Mass/Vol] 3.2 g/dL 3.2 - 5.2 g/dL [facility] Anion gap [Moles/Vol] 11 mmol/L 10 - 2 0 mmol/L [facility] Calcium [Mass/Vol] 8.2 mg/dL Low 8.4 - 10. 2 mg/dL [facility] Chloride [Moles/Vol] 106 mmol/L 98 - 10 8 mmol/L [facility] Creatinine [Mass/Vol] 1.65 mg/dL High 0.40 - 1.10 mg/dL [facility] GFR/1.73 sq M.predicted CKD-EPI (S/P/Bld) [Vol rate/Area] 39 Low - PINF [facility] Glucose [Mass/Vol] 206 mg/dL High 65 - 99 mg/dL [facility] HCO3 [Moles/Vol] 28 mmol/L 21 - 32 mmol/L [facility] Interpretation and review of laboratory results Abnormal [facility] Phosphate [Mass/Vol] 4.4 mg/dL 2.7 - 4 .5 mg/dL [facility] Potassium [Moles/Vol] 3.7 mmol/L 3.5 - 5.1 mmol/L [facility] Sodium [Moles/Vol] 141 mmol/L 135 - 145 mmol/L [facility] Urea nitrogen [Mass/Vol] 19 mg/dL 8 - 25 mg/dL [facility] Urea nitrogen/Creatinine [Mass ratio] 11.5 mg/mg 10.0 - 20.0 [facility] CBCon 04-02-2024 AUTO NRBC 0.0 % Normal [facility] Comment on above: Performed By: #### 4 [id number] ####[facility] [address] [place] [address] Abbi Choudhary M.D. [id number] AUTO NRBC ABS COUNT 0.00 K/mcL Normal 0.00-0.00 [facility] Comment on above: Performed By: #### 4 [id number] ####[facility] [address] [place], [place] [address] Abbi Choudhary M.D. [id number] Erythrocyte distribution width (RBC) [Ratio] 13.1 % Normal 11.6-14.8 [facility] Comment on above: Performed By: #### 4 [id number] ####[facility] [address] [place], [place] [address] Abbi Choudhary M.D. [id number] Hematocrit (Bld) [Volume fraction] 26.0 % Low 36.0-46.0 [facility] Comment on above: Performed By: #### 4 [id number] ####[facility] [address] [place], [place] [address] Abbi Choudhary M.D. [id number] Hemoglobin (Bld) [Mass/Vol] 8.9 g/dL Low 12.0-16.0 [facility] Comment on above: Performed By: #### 4 [id number] ####[facility] [address] [place], [place] [address] Abbi Choudhary M.D. [id number] MCH (RBC) [Entitic mass] 31.2 pg Normal 26.0-34.0 [facility] Comment on above: Performed By: #### 4 [id number] ####[facility] [address] [place], [place] [address] Abbi Choudhary M.D. [id number] MCV (RBC) [Entitic vol] 91.2 fL Normal 80.0-100.0 [facility] Comment on above: Performed By: #### 4 [id number] ####[facility] [address] [place], [place] [address] Abbi Choudhary M.D. [id number] MEAN CORPUSCULAR HEMOGLOBIN CONC 34.2 g/dL Normal 31.0-37.0 [facility] Comment on above: Performed By: #### 4 [id number] ####[facility] [address] [place], [place] [address] Abbi Choudhary M.D. [id number] Platelet mean volume (Bld) [Entitic vol] 9.2 fL Low 9.4-12.4 [facility] Comment on above: Performed By: #### 4 [id number] ####[facility] [address] [place], [place] [address] Abbi Choudhary M.D. [id number] Platelets (Bld) [#/Vol] 277 10*3/uL Normal 150-400 [facility] Comment on above: Performed By: #### 4 [id number] ####[facility] [address] [place], [place] [address] Abbi Choudhary M.D. [id number] RBC (Bld) [#/Vol] 2.85 10*6/uL Low 4.00-5.20 [facility] Comment on above: Performed By: #### 4 [id number] ####[facility] [address] [place], [place] [address] Abbi Choudhary M.D. [id number] WBC (Bld) [#/Vol] 7.42 10*3/uL Normal 4.50-11.00 [facility] Comment on above: Performed By: #### 4 [id number] ####[facility] [address] [place], [place] [address] Abbi Choudhary M.D. [id number] CBC panel Auto (Bld)on 04-02 Erythrocyte distribution width (RBC) [Entitic vol] 13.1 % 11.6 - 14.8 % [facility] Hematocrit (Bld) [Volume fraction] 26 % Low 36.0 - 46.0 % [facility] Hemoglobin (Bld) [Mass/Vol] 8.9 g/dL Low 12.0 - 16.0 g/dL [facility] Interpretation and review of laboratory results Abnormal [facility] MCH (RBC) [Entitic mass] 31.2 pg 26.0 - 34.0 pg [facility] MCHC (RBC) [Mass/Vol] 34.2 g/dL 31.0 - 37.0 g/dL [facility] MCV (RBC) [Entitic vol] 91.2 fL 80.0 - 100.0 fL [facility] Nucleated RBC (Bld) [#/Vol] 0 10*3/uL [facility] Nucleated RBC/100 WBC (Bld) [Ratio] 0 % [facility] Platelet mean volume (Bld) [Entitic vol] 9.2 fL Low 9.4 - 12.4 fL [facility] Platelets (Bld) [#/Vol] 277 10*3/uL [facility] RBC (Bld) [#/Vol] 2.85 10*6/uL Low [facility] WBC (Bld) [#/Vol] 7.42 10*3/uL [facility] Glucose (Bld) [Mass/Vol]on 06-02-2023 Glucose [Mass/Vol] 239 mg/dL High 65 - 99 mg/dL [facility] Interpretation and review of laboratory results Abnormal [facility] POC GLUCOSE - [facility] 024 Glucose [Mass/Vol] 239 mg/dL High 65-99 [facility] Comment on above: Performed By: #### 4 [id number] ####[facility] [address], [place] [address]Alisia Choudhary M.D. [id number] RENAL FUNCTION PANELon 04-02 Albumin [Mass/Vol] 3.2 g/dL Normal 3.2-5.2 [facility] Comment on above: Order Comment: [facility] has implemented the eGFR calculation approach that does not have a coefficient for race that conforms to the NKF-ASN Task Force Recommendations. Performed By: #### 4 [id number] ####[facility] [address] [place], [place] [address] Abbi Choudhary M.D. [id number] Anion gap [Moles/Vol] 11 mmol/L Normal 10-20 [facility] Comment on above: Order Comment: [facility] has implemented the eGFR calculation approach that does not have a coefficient for race that conforms to the NKF-ASN Task Force Recommendations. Performed By: #### 4 [id number] ####[facility] [address] [place], [place] [address] Abbi Choudhary M.D. [id number] Calcium [Mass/Vol] 8.3 mg/dL Low 8.4-10.2 [facility] Comment on above: Order Comment: [facility] has implemented the eGFR calculation approach that does not have a coefficient for race that conforms to the NKF-ASN Task Force Recommendations. Performed By: #### 4 [id number] ####[facility] [address] [place], [place] [address] Abbi Choudhary M.D. [id number] Chloride [Moles/Vol] 107 mmol/L Normal 98-108 [facility] Comment on above: Order Comment: [facility] has implemented the eGFR calculation approach that does not have a coefficient for race that conforms to the NKF-ASN Task Force Recommendations. Performed By: #### 4 [id number] ####[facility] [address] [place], [place] [address] Abbi Choudhary M.D. [id number] Creatinine [Mass/Vol] 1.63 mg/dL High 0.40-1.10 [facility] Comment on above: Order Comment: [facility] has implemented the eGFR calculation approach that does not have a coefficient for race that conforms to the NKF-ASN Task Force Recommendations. Performed By: #### 4 [id number] ####[facility] [address] [place], [place] [address] Abbi Choudhary M.D. [id number] EGFR 39 mL/min/1.73 m2 Low >=60 [facility] Comment on above: Order Comment: [facility] has implemented the eGFR calculation approach that does not have a coefficient for race that conforms to the NKF-ASN Task Force Recommendations. Result Comment: Lorie mated GFR was calculated using the 2020 CKD-EPI creatinine equation. Performed By: #### 4 [id number] ####[facility] [address] [place], [place] [address] Abbi Choudhary M.D. [id number] Glucose [Mass/Vol] 233 mg/dL High 65-99 [facility] Comment on above: Order Comment: [facility] has implemented the eGFR calculation approach that does not have a coefficient for race that conforms to the NKF-ASN Task Force Recommendations. Performed By: #### 4 [id number] ####[facility] [address] [place], [place] [address] Abbi Choudhary M.D. [id number] HCO3 (Bld) [Moles/Vol] 29 mmol/L Normal 21-32 [facility] Comment on above: Order Comment: [facility] has implemented the eGFR calculation approach that does not have a coefficient for race that conforms to the NKF-ASN Task Force Recommendations. Performed By: #### 4 [id number] ####[facility] [address] [place], [place] [address] Abbi Choudhary M.D. [id number] Phosphate [Mass/Vol] 3.8 mg/dL Normal 2.7-4.5 [facility] Comment on above: Order Comment: [facility] has implemented the eGFR calculation approach that does not have a coefficient for race that conforms to the NKF-ASN Task Force Recommendations. Performed By: #### 4 [id number] ####[facility] [address] [place], [place] [address] Abbi Choudhary M.D. [id number] Potassium [Moles/Vol] 3.7 mmol/L Normal 3.5-5.1 [facility] Comment on above: Order Comment: [facility] has implemented the eGFR calculation approach that does not have a coefficient for race that conforms to the NKF-ASN Task Force Recommendations. Performed By: #### 4 [id number] ####[facility] [address] [place], [place] [address] Abbi Choudhary M.D. [id number] Sodium [Moles/Vol] 143 mmol/L Normal 135-145 [facility] Comment on above: Order Comment: [facility] has implemented the eGFR calculation approach that does not have a coefficient for race that conforms to the NKF-ASN Task Force Recommendations. Performed By: #### 4 [id number] ####[facility] [address] [place], [place] [address] Abbi Choudhary M.D. [id number] Urea nitrogen [Mass/Vol] 14 mg/dL Normal 8-25 [facility] Comment on above: Order Comment: [facility] has implemented the eGFR calculation approach that does not have a coefficient for race that conforms to the NKF-ASN Task Force Recommendations. Performed By: #### 4 [id number] ####[facility] [address] [place], [place] [address] Abbi Choudhary M.D. [id number] Urea nitrogen/Creatinine [Mass ratio] 8.6 mg/mg Low 10.0-20.0 [facility] Comment on above: Order Comment: [facility] has implemented the eGFR calculation approach that does not have a coefficient for race that conforms to the NKF-ASN Task Force Recommendations. Performed By: #### 4 [id number] ####[facility] [address] [place], [place] [address] Abbi Choudhary M.D. [id number] [place] [facility] [place] Albumin [Mass/Vol] 3.2 g/dL 3.2 - 5.2 g/dL [facility] Anion gap [Moles/Vol] 11 mmol/L 10 - 2 0 mmol/L [facility] Calcium [Mass/Vol] 8.3 mg/dL Low 8.4 - 10. 2 mg/dL [facility] Chloride [Moles/Vol] 107 mmol/L 98 - 10 8 mmol/L [facility] Creatinine [Mass/Vol] 1.63 mg/dL High 0.40 - 1.10 mg/dL [facility] GFR/1.73 sq M.predicted CKD-EPI (S/P/Bld) [Vol rate/Area] 39 Low - PINF [facility] Glucose [Mass/Vol] 233 mg/dL High 65 - 99 mg/dL [facility] HCO3 [Moles/Vol] 29 mmol/L 21 - 32 mmol/L [facility] Interpretation and review of laboratory results Abnormal [facility] Phosphate [Mass/Vol] 3.8 mg/dL 2.7 - 4 .5 mg/dL [facility] Potassium [Moles/Vol] 3.7 mmol/L 3.5 - 5.1 mmol/L [facility] Sodium [Moles/Vol] 143 mmol/L 135 - 145 mmol/L [facility] Urea nitrogen [Mass/Vol] 14 mg/dL 8 - 25 mg/dL [facility] Urea nitrogen/Creatinine [Mass ratio] 8.6 mg/mg Low 10.0 - 20.0 [facility] XR Foot - left 3 Viewson GE RIS GE RIS [facility] XR Foot - left 3 ViewsOrdere d By: Augustine Mittal on 04-02-2024 [facility] Work Phone: CBCon 04-01-2024 AUTO NRBC 0.0 % Normal [facility] Comment on above: Performed By: #### 4 [id number] ####[facility] [address] [place], [place] [address] Abbi Choudhary M.D. [id number] AUTO NRBC ABS COUNT 0.00 K/mcL Normal 0.00-0.00 [facility] Comment on above: Performed By: #### 4 [id number] ####[facility] [address] [place], [place] [address] Abbi Choudhary M.D. [id number] Erythrocyte distribution width (RBC) [Ratio] 13.0 % Normal 11.6-14.8 [facility] Comment on above: Performed By: #### 4 [id number] ####[facility] [address] [place], [place] [address] Abbi Choudhary M.D. [id number] Hematocrit (Bld) [Volume fraction] 27.2 % Low 36.0-46.0 [facility] Comment on above: Performed By: #### 4 [id number] ####[facility] [facility] [address], [place] [address] Abbi Choudhary M.D. [id number] Hemoglobin (Bld) [Mass/Vol] 9.2 g/dL Low 12.0-16.0 [facility] Comment on above: Performed By: #### 4 [id number] ####[facility] [address], [place] [address] Abbi Choudhary M.D. [id number] MCH (RBC) [Entitic mass] 30.9 pg Normal 26.0-34.0 [facility] Comment on above: Performed By: #### 4 [id number] ####[facility] [address] [place] [address] Abbi Choudhary M.D. [id number] MCV (RBC) [Entitic vol] 91.3 fL Normal 80.0-100.0 [facility] Comment on above: Performed By: #### 4 [id number] ####[facility] [address], [place] [address] Abbi Choudhary M.D. [id number] MEAN CORPUSCULAR HEMOGLOBIN CONC 33.8 g/dL Normal 31.0-37.0 [facility] Comment on above: Performed By: #### 4 [id number] ####[facility] [address], [place] [address] Abbi Choudhary M.D. [id number] Platelet mean volume (Bld) [Entitic vol] 8.8 fL Low 9.4-12.4 [facility] Comment on above: Performed By: #### 4 [id number] ####[facility] [address], [place] [address] Abbi Choudhary M.D. [id number] Platelets (Bld) [#/Vol] 252 10*3/uL Normal 150-400 [facility] Comment on above: Performed By: #### 4 [id number] ####[facility] [address], [place] [address] Abbi Choudhary M.D. [id number] RBC (Bld) [#/Vol] 2.98 10*6/uL Low 4.00-5.20 [facility] Comment on above: Performed By: #### 4 [id number] ####[facility] [address], [place] [address] Abbi Choudhary M.D. [id number] WBC (Bld) [#/Vol] 6.99 10*3/uL Normal 4.50-11.00 [facility] Comment on above: Performed By: #### 4 [id number] ####[facility] [address], [place] [address] Abbi Choudhary M.D. [id number] CBC panel Auto (Bld)on 04-01 Erythrocyte distribution width (RBC) [Entitic vol] 13 % 11.6 - 14.8 % [facility] Hematocrit (Bld) [Volume fraction] 27.2 % Low 36.0 - 46.0 % [facility] Hemoglobin (Bld) [Mass/Vol] 9.2 g/dL Low 12.0 - 16.0 g/dL [facility] Interpretation and review of laboratory results Abnormal [facility] MCH (RBC) [Entitic mass] 30.9 pg 26.0 - 34.0 pg [facility] MCHC (RBC) [Mass/Vol] 33.8 g/dL 31.0 - 37.0 g/dL [facility] MCV (RBC) [Entitic vol] 91.3 fL 80.0 - 100.0 fL [facility] Nucleated RBC (Bld) [#/Vol] 0 10*3/uL [facility] Nucleated RBC/100 WBC (Bld) [Ratio] 0 % [facility] Platelet mean volume (Bld) [Entitic vol] 8.8 fL Low 9.4 - 12.4 fL [facility] Platelets (Bld) [#/Vol] 252 10*3/uL [facility] RBC (Bld) [#/Vol] 2.98 10*6/uL Low [facility] eah WBC (Bld) [#/Vol] 6.99 10*3/uL [facility] CT Foot - left WO contraston 04-01-2024 GE RIS GE RIS [facility] CT Foot - left WO contrastOr dered By: Kavin Duncan on 04-01-2024 [facility] Work Phone: Glucose (Bld) [Mass/Vol]on 1 06-01-2023 Glucose [Mass/Vol] 253 mg/dL High 65 - 99 mg/dL [facility] Interpretation and review of laboratory results Abnormal [facility] Glucose [Mass/Vol] 92 mg/dL 65 - 99 mg/dL [facility] Interpretation and review of laboratory results Normal [facility] OP NOTEon 04-01-2024 OP NOTE Normal [facility] Glucose [Mass/Vol] 253 mg/dL High 65-99 [facility] Comment on above: Performed By: #### 4 [id number] ####[facility] [address], [place] [address] Abbi Choudhary M.D. [id number] Glucose [Mass/Vol] 92 mg/dL Normal 65- [facility] Comment on above: Performed By: #### 4 6932 ####[facility] [address], [place] [address] Abbi Choudhary M.D. [id number] RENAL FUNCTION PANELon 04-01 Albumin [Mass/Vol] 3.3 g/dL Normal 3.2-5.2 [facility] Comment on above: Order Comment: [facility] has implemented the eGFR calculation approach that does not have a coefficient for race that conforms to the NKF-ASN Task Force Recommendations. Performed By: #### 4 6449 ####[facility] [address], [place] [address] Abbi Choudhary M.D. [id number] Anion gap [Moles/Vol] 12 mmol/L Normal 10- [facility] Comment on above: Order Comment: [facility] has implemented the eGFR calculation approach that does not have a coefficient for race that conforms to the NKF-ASN Task Force Recommendations. Performed By: #### 4 [id number] ####[facility] [address], [place] [address] Abbi Choudhary M.D. [id number] Calcium [Mass/Vol] 8.6 mg/dL Normal 8.4-10.2 [facility] Comment on above: Order Comment: [facility] has implemented the eGFR calculation approach that does not have a coefficient for race that conforms to the NKF-ASN Task Force Recommendations. Performed By: #### 4 [id number] ####[facility] [address], [place] [address] Abbi Choudhary M.D. [id number] Chloride [Moles/Vol] 108 mmol/L Normal 98-108 [facility] Comment on above: Order Comment: [facility] has implemented the eGFR calculation approach that does not have a coefficient for race that conforms to the NKF-ASN Task Force Recommendations. Performed By: #### 4 [id number] ####[facility] [address], [place] [address] Abbi Choudhary M.D. [id number] Creatinine [Mass/Vol] 1.28 mg/dL High 0.40-1.10 [facility] Comment on above: Order Comment: [facility] has implemented the eGFR calculation approach that does not have a coefficient for race that conforms to the NKF-ASN Task Force Recommendations. Performed By: #### 4 [id number] ####[facility] [address] [place], [place] [address] Abbi Choudhary M.D. [id number] EGFR 52 mL/min/1.73 m2 Low >=60 [facility] Comment on above: Order Comment: [facility] has implemented the eGFR calculation approach that does not have a coefficient for race that conforms to the NKF-ASN Task Force Recommendations. Result Comment: Lorie mated GFR was calculated using the 2020 CKD-EPI creatinine equation. Performed By: #### 4 [id number] ####[facility] [address] [place], [place] [address] Abbi Choudhary M.D. [id number] Glucose [Mass/Vol] 162 mg/dL High 65-99 [facility] Comment on above: Order Comment: [facility] has implemented the eGFR calculation approach that does not have a coefficient for race that conforms to the NKF-ASN Task Force Recommendations. Performed By: #### 4 6449 ####[facility] [address] [place], [place] [address] Abbi Choudhary M.D. [id number] HCO3 (Bld) [Moles/Vol] 27 mmol/L Normal 21-32 [facility] Comment on above: Order Comment: [facility] has implemented the eGFR calculation approach that does not have a coefficient for race that conforms to the NKF-ASN Task Force Recommendations. Performed By: #### 4 [id number] ####[facility] [address], [place] [address] Abbi Choudhary M.D. [id number] Phosphate [Mass/Vol] 2.8 mg/dL Normal 2.7-4.5 [facility] Comment on above: Order Comment: [facility] has implemented the eGFR calculation approach that does not have a coefficient for race that conforms to the NKF-ASN Task Force Recommendations. Performed By: #### 4 [id number] ####[facility] [address] [place], [place] [address] Abbi Choudhary M.D. [id number] Potassium [Moles/Vol] 3.5 mmol/L Normal 3.5-5.1 [facility] Comment on above: Order Comment: [facility] has implemented the eGFR calculation approach that does not have a coefficient for race that conforms to the NKF-ASN Task Force Recommendations. Performed By: #### 4 6449 ####[facility] [address], [place] [address] Abbi Choudhary M.D. [id number] Sodium [Moles/Vol] 143 mmol/L Normal 135-145 [facility] Comment on above: Order Comment: [facility] has implemented the eGFR calculation approach that does not have a coefficient for race that conforms to the NKF-ASN Task Force Recommendations. Performed By: #### 4 6449 ####[facility] [address], [place] [address] Abbi Choudhary M.D. [id number] Urea nitrogen [Mass/Vol] 14 mg/dL Normal 8-25 [facility] Comment on above: Order Comment: [facility] has implemented the eGFR calculation approach that does not have a coefficient for race that conforms to the NKF-ASN Task Force Recommendations. Performed By: #### 4 6449 ####[facility] [address], [place] [address] Abbi Choudhary M.D. [id number] Urea nitrogen/Creatinine [Mass ratio] 10.9 mg/mg Normal 10.0-20.0 [facility] Comment on above: Order Comment: [facility] has implemented the eGFR calculation approach that does not have a coefficient for race that conforms to the NKF-ASN Task Force Recommendations. Performed By: #### 4 [id number] ####[facility] [address] [place], [place] [address] Abbi Choudhary M.D. [id number] Renal function 2000 panelon 04-01-2024 Albumin [Mass/Vol] 3.3 g/dL 3.2 - 5.2 g/dL [facility] Anion gap [Moles/Vol] 12 mmol/L 10 - 2 0 mmol/L [facility] Calcium [Mass/Vol] 8.6 mg/dL 8.4 - 10. 2 mg/dL [facility] Chloride [Moles/Vol] 108 mmol/L 98 - 10 8 mmol/L [facility] Creatinine [Mass/Vol] 1.28 mg/dL High 0.40 - 1.10 mg/dL [facility] GFR/1.73 sq M.predicted CKD-EPI (S/P/Bld) [Vol rate/Area] 52 Low - PINF [facility] Glucose [Mass/Vol] 162 mg/dL High 65 - 99 mg/dL [facility] HCO3 [Moles/Vol] 27 mmol/L 21 - 32 mmol/L [facility] Interpretation and review of laboratory results Abnormal [facility] Phosphate [Mass/Vol] 2.8 mg/dL 2.7 - 4 .5 mg/dL [facility] Potassium [Moles/Vol] 3.5 mmol/L 3.5 - 5.1 mmol/L [facility] Sodium [Moles/Vol] 143 mmol/L 135 - 145 mmol/L [facility] Urea nitrogen [Mass/Vol] 14 mg/dL 8 - 25 mg/dL [facility] Urea nitrogen/Creatinine [Mass ratio] 10.9 mg/mg 10.0 - 20.0 [facility] SURGICAL SITE AEROBIC CULTUR Turner 04-01-2024 SURGICAL SITE AEROBIC CULTURE AEROBIC CULTURE STAPHYLOCOCCUS EPIDERMIDIS Rare growth Staphylococcus epidermidis See susceptibility from same source/same date. GRAM STAIN RESULT Many WBC Many RBC No Organisms Seen Abnormal [facility] Comment on above: Performed By: #### L [id number] ####[facility] [address] [place] [address] Swapnil Brewer M.D. [id number] TISSUE EXAMon 04-01-2024 TISSUE EXAM Normal [facility] Comment on above: Performed By: #### 4 7015 ####[facility] [address] [place] [address] Abbi Choudhary M.D. [id number] [address] [place] [address] Swapnil Brewer M.D. [id number] Wound Aerobic And Anaerobic CultureOrdered By: Gayla Cook on 04-01-2024 Bacteria identified Aer cx Nom (Unsp spec) No Anaerobic Growth after 5 days [facility] Bacteria identified Aer cx Nom (Unsp spec) Light Growth Staphylococcus aureus Abnormal [facility] Bacteria identified Aer cx Nom (Unsp spec) Light Growth Normal Skin Eric [facility] Interpretation and review of laboratory results Abnormal [facility] Microscopic observation Gram stain Nom (Unsp spec) No WBC Seen [facility] Microscopic observation Gram stain Nom (Unsp spec) No Organisms Seen [facility] XR FOOT LEFT 3+ VIEWS (STAND ILIA)on 04-01-2024 XR FOOT LEFT 3+ VIEWS (STANDARD) Normal [facility] Comment on above: Order Comment: Injur y/Trauma or Illness?:Illness/OtherHow long have you had these symptoms (acute/chronic)?:AcuteReason for exam?:Status post amputation left hallux distal phalanxHistory of cancer?:uSurgeries, chemotherapy, or radiation?:pacemakerType of Exam?:InitialAdditional signs and symptoms?:Status post amputation left hallux distal phalanx XR Foot - left 3 Viewson Radiology Study observation (narrative) [facility] 03-31-2024 AUTO NRBC 0.0 % Normal [facility] Comment on above: Performed By: #### 4 [id number] ####[facility] [address], [place] [address] Abbi Choudhary M.D. [id number] AUTO NRBC ABS COUNT 0.00 K/mcL Normal 0.00-0.00 [facility] Comment on above: Performed By: #### 4 [id number] ####[facility] [address], [place] [address] Abbi Choudhary M.D. [id number] Erythrocyte distribution width (RBC) [Ratio] 12.6 % Normal 11.6-14.8 [facility] Comment on above: Performed By: #### 4 [id number] ####[facility] [address] [place] [address] Abbi Choudhary M.D. [id number] Hematocrit (Bld) [Volume fraction] 26.9 % Low 36.0-46.0 [facility] Comment on above: Performed By: #### 4 [id number] ####[facility] [address], [place] [address] Abbi Choudhary M.D. [id number] Hemoglobin (Bld) [Mass/Vol] 9.1 g/dL Low 12.0-16.0 [facility] Comment on above: Performed By: #### 4 [id number] ####[facility] [address], [place] [address] Abbi Choudhary M.D. [id number] MCH (RBC) [Entitic mass] 31.8 pg Normal 26.0-34.0 [facility] Comment on above: Performed By: #### 4 [id number] ####[facility] [address], [place] [address] Abbi Choudhary M.D. [id number] MCV (RBC) [Entitic vol] 94.1 fL Normal 80.0-100.0 [facility] Comment on above: Performed By: #### 4 [id number] ####[facility] [address] [place], [place] [address] Abbi Choudhary M.D. [id number] MEAN CORPUSCULAR HEMOGLOBIN CONC 33.8 g/dL Normal 31.0-37.0 [facility] Comment on above: Performed By: #### 4 [id number] ####[facility] [address], [place] [address] Abbi Choudhary M.D. [id number] Platelet mean volume (Bld) [Entitic vol] 9.6 fL Normal 9.4-12.4 [facility] Comment on above: Performed By: #### 4 [id number] ####[facility] [address] [place] [address] Abbi Choudhary M.D. [id number] Platelets (Bld) [#/Vol] 266 10*3/uL Normal 150-400 [facility] Comment on above: Performed By: #### 4 [id number] ####[facility] [address], [place] [address] Abbi Choudhary M.D. [id number] RBC (Bld) [#/Vol] 2.86 10*6/uL Low 4.00-5.20 [facility] Comment on above: Performed By: #### 4 [id number] ####[facility] [address] [place] [address] Abbi Choudhary M.D. [id number] WBC (Bld) [#/Vol] 6.83 10*3/uL Normal 4.50-11.00 [facility] Comment on above: Performed By: #### 4 [id number] ####[facility] [address], [place] [address] Abbi Choudhary M.D. [id number] CBC panel Auto (Bld)on 03-31 Erythrocyte distribution width (RBC) [Entitic vol] 12.6 % 11.6 - 14.8 % [facility] Hematocrit (Bld) [Volume fraction] 26.9 % Low 36.0 - 46.0 % [facility] Hemoglobin (Bld) [Mass/Vol] 9.1 g/dL Low 12.0 - 16.0 g/dL [facility] Interpretation and review of laboratory results Abnormal [facility] MCH (RBC) [Entitic mass] 31.8 pg 26.0 - 34.0 pg [facility] MCHC (RBC) [Mass/Vol] 33.8 g/dL 31.0 - 37.0 g/dL [facility] MCV (RBC) [Entitic vol] 94.1 fL 80.0 - 100.0 fL [facility] Nucleated RBC (Bld) [#/Vol] 0 10*3/uL [facility] Nucleated RBC/100 WBC (Bld) [Ratio] 0 % [facility] Platelet mean volume (Bld) [Entitic vol] 9.6 fL 9.4 - 12.4 fL [facility] Platelets (Bld) [#/Vol] 266 10*3/uL [facility] RBC (Bld) [#/Vol] 2.86 10*6/uL Low [facility] WBC (Bld) [#/Vol] 6.83 10*3/uL [facility] CT ABDOMEN PELVIS WITHOUT CO NTRASTon 03-31-2024 CT ABDOMEN PELVIS WITHOUT CONTRAST Normal [facility] Comment on above: Order Comment: Injur y/Trauma or Illness?:Illness/OtherHow long have you had these symptoms (acute/chronic)?:AcuteReason for exam?:Abdominal/flank pain, stone suspectedType of Exam?:InitialAdditional signs and symptoms?:Abdominal/flank pain, stone suspected CT Abdomen and Pelvis WO con traston 03-31-2024 GE RIS GE RIS [facility] Radiology Study observation (narrative) [facility] CT Abdomen and Pelvis WO con trastOrdered By: Lawrence Coronado on 03-31-2024 [facility] Work Phone: CT FOOT LEFT WITHOUT CONTRAS Ton 03-31-2024 CT FOOT LEFT WITHOUT CONTRAST Normal [facility] Comment on above: Order Comment: Injur y/Trauma or Illness?:Illness/OtherHow long have you had these symptoms (acute/chronic)?:AcuteReason for exam?:osteomyelitisType of Exam?:InitialAdditional signs and symptoms?:foot pain CT Foot - left WO contraston 03-31-2024 Radiology Study observation (narrative) [facility] RENAL FUNCTION PANELon 03-31 Albumin [Mass/Vol] 3.1 g/dL Low 3.2-5.2 [facility] Comment on above: Order Comment: [facility] has implemented the eGFR calculation approach that does not have a coefficient for race that conforms to the NKF-ASN Task Force Recommendations. Performed By: #### 4 [id number] ####[facility] [address], [place] [address] Abbi Choudhary M.D. [id number] Anion gap [Moles/Vol] 9 mmol/L Low 10-20 [facility] Comment on above: Order Comment: [facility] has implemented the eGFR calculation approach that does not have a coefficient for race that conforms to the NKF-ASN Task Force Recommendations. Performed By: #### 4 6449 ####[facility] [address], [place] [address] Abbi Choudhary M.D. [id number] Calcium [Mass/Vol] 8.9 mg/dL Normal 8.4-10.2 [facility] Comment on above: Order Comment: [facility] has implemented the eGFR calculation approach that does not have a coefficient for race that conforms to the NKF-ASN Task Force Recommendations. Performed By: #### 4 [id number] ####[facility] [address] [place], [place] [address] Abbi Choudhary M.D. [id number] Chloride [Moles/Vol] 109 mmol/L High 98-108 [facility] Comment on above: Order Comment: [facility] has implemented the eGFR calculation approach that does not have a coefficient for race that conforms to the NKF-ASN Task Force Recommendations. Performed By: #### 4 [id number] ####[facility] [address] [place], [place] [address] Abbi Choudhary M.D. [id number] Creatinine [Mass/Vol] 1.22 mg/dL High 0.40-1.10 [facility] Comment on above: Order Comment: [facility] has implemented the eGFR calculation approach that does not have a coefficient for race that conforms to the NKF-ASN Task Force Recommendations. Performed By: #### 4 6449 ####[facility] [address], [place] [address] Abbi Choudhary M.D. [id number] EGFR 56 mL/min/1.73 m2 Low >=60 [facility] Comment on above: Order Comment: [facility] has implemented the eGFR calculation approach that does not have a coefficient for race that conforms to the NKF-ASN Task Force Recommendations. Result Comment: Lorie mated GFR was calculated using the 2020 CKD-EPI creatinine equation. Performed By: #### 4 [id number] ####[facility] [address], [place] [address] Abbi Choudhary M.D. [id number] Glucose [Mass/Vol] 139 mg/dL High 65-99 [facility] Comment on above: Order Comment: [facility] has implemented the eGFR calculation approach that does not have a coefficient for race that conforms to the NKF-ASN Task Force Recommendations. Performed By: #### 4 [id number] ####[facility] [address], [place] [address] Abbi Choudhary M.D. [id number] HCO3 (Bld) [Moles/Vol] 28 mmol/L Normal 21-32 [facility] Comment on above: Order Comment: [facility] has implemented the eGFR calculation approach that does not have a coefficient for race that conforms to the NKF-ASN Task Force Recommendations. Performed By: #### 4 [id number] ####[facility] [address], [place] [address] Abbi Choudhary M.D. [id number] Phosphate [Mass/Vol] 2.7 mg/dL Normal 2.7-4.5 [facility] Comment on above: Order Comment: [facility] has implemented the eGFR calculation approach that does not have a coefficient for race that conforms to the NKF-ASN Task Force Recommendations. Performed By: #### 4 6449 ####[facility] [address] [place], [place] [address] Abbi Choudhary M.D. [id number] Potassium [Moles/Vol] 3.4 mmol/L Low 3.5-5.1 [facility] Comment on above: Order Comment: [facility] has implemented the eGFR calculation approach that does not have a coefficient for race that conforms to the NKF-ASN Task Force Recommendations. Performed By: #### 4 6449 ####[facility] [address] [place], [place] [address] Abbi Choudhary M.D. [id number] Sodium [Moles/Vol] 143 mmol/L Normal 135-145 [facility] Comment on above: Order Comment: [facility] has implemented the eGFR calculation approach that does not have a coefficient for race that conforms to the NKF-ASN Task Force Recommendations. Performed By: #### 4 6449 #### LAB [address] [place], [place] [address] Abbi Choudhary M.D. [id number] Urea nitrogen [Mass/Vol] 20 mg/dL Normal 8-25 [facility] Comment on above: Order Comment: [facility] has implemented the eGFR calculation approach that does not have a coefficient for race that conforms to the NKF-ASN Task Force Recommendations. Performed By: #### 4 6449 #### [facility] [address] [place], [place] [address] Abbi Choudhary M.D. [id number] Urea nitrogen/Creatinine [Mass ratio] 16.4 mg/mg Normal 10.0-20.0 [facility] Comment on above: Order Comment: [facility] has implemented the eGFR calculation approach that does not have a coefficient for race that conforms to the NKF-ASN Task Force Recommendations. Performed By: #### 4 [id number] ####[facility] [address] [place], [place] [address] Abbi Choudhary M.D. [id number] Renal function 2000 [facility] 03-31-2024 Albumin [Mass/Vol] 3.1 g/dL Low 3.2 - 5.2 g/dL [facility] Anion gap [Moles/Vol] 9 mmol/L Low 10 - 2 0 mmol/L [facility] Calcium [Mass/Vol] 8.9 mg/dL 8.4 - 10. 2 mg/dL [facility] Chloride [Moles/Vol] 109 mmol/L High 98 - 10 8 mmol/L [facility] Creatinine [Mass/Vol] 1.22 mg/dL High 0.40 - 1.10 mg/dL [facility] GFR/1.73 sq M.predicted CKD-EPI (S/P/Bld) [Vol rate/Area] 56 Low - PINF [facility] Glucose [Mass/Vol] 139 mg/dL High 65 - 99 mg/dL [facility] HCO3 [Moles/Vol] 28 mmol/L 21 - 32 mmol/L [facility] Interpretation and review of laboratory results Abnormal [facility] [facility] Phosphate [Mass/Vol] 2.7 mg/dL 2.7 - 4 .5 mg/dL [facility] Potassium [Moles/Vol] 3.4 mmol/L Low 3.5 - 5.1 mmol/L [facility] Sodium [Moles/Vol] 143 mmol/L 135 - 145 mmol/L [facility] Urea nitrogen [Mass/Vol] 20 mg/dL 8 - 25 mg/dL [facility] Urea nitrogen/Creatinine [Mass ratio] 16.4 mg/mg 10.0 - 20.0 [facility] Bacteria identified Cx Nom ( Bld)on 03-30-2024 Interpretation and review of laboratory results Normal [facility] CBCon 03-30-2024 AUTO NRBC 0.0 % Normal [facility] Comment on above: Performed By: #### [id number] ####[facility] [address] [address] Abbi Choudhary M.D. [id number] AUTO NRBC ABS COUNT 0.00 K/mcL Normal 0.00-0.00 [facility] Comment on above: Performed By: #### 4 [id number] ####[facility] [address] [address] Abbi Choudhary M.D. [id number] Erythrocyte distribution width (RBC) [Ratio] 12.6 % Normal 11.6-14.8 [facility] Comment on above: Performed By: #### 4 [id number] ####[facility] [address] [place], [place] [address] Abbi Choudhary M.D. [id number] Hematocrit (Bld) [Volume fraction] 29.7 % Low 36.0-46.0 [facility] Comment on above: Performed By: #### 4 [id number] ####[facility] [address] [address] Abbi Choudhary M.D. [id number] Hemoglobin (Bld) [Mass/Vol] 9.4 g/dL Low 12.0-16.0 [facility] Comment on above: Performed By: #### 4 [id number] ####[facility] [address] [place], [place] [address] Abbi Choudhary M.D. [id number] MCH (RBC) [Entitic mass] 30.2 pg Normal 26.0-34.0 [facility] Comment on above: Performed By: #### 4 [id number] ####[facility] [address] [place], [place] [address] Abbi Choudhary M.D. [id number] MCV (RBC) [Entitic vol] 95.5 fL Normal 80.0-100.0 [facility] Comment on above: Performed By: #### 4 [id number] ####[facility] [address] [place], [place] [address] Abbi Choudhary M.D. [id number] MEAN CORPUSCULAR HEMOGLOBIN CONC 31.6 g/dL Normal 31.0-37.0 [facility] Comment on above: Performed By: #### 4 [id number] ####[facility] [address] [place], [place] [address] Abbi Choudhary M.D. [id number] Platelet mean volume (Bld) [Entitic vol] 9.6 fL Normal 9.4-12.4 [facility] Comment on above: Performed By: #### 4 [id number] ####[facility] [address] [place], [place] [address] Abbi Choudhary M.D. [id number] Platelets (Bld) [#/Vol] 263 10*3/uL Normal 150-400 [facility] Comment on above: Performed By: #### 4 [id number] ####[facility] [address] [place], [place] [address] Abbi Choudhary M.D. [id number] RBC (Bld) [#/Vol] 3.11 10*6/uL Low 4.00-5.20 [facility] Comment on above: Performed By: #### 4 [id number] ####[facility] [address] [place], [place] [address] Abbi Choudhary M.D. [id number] WBC (Bld) [#/Vol] 6.90 10*3/uL Normal 4.50-11.00 [facility] Comment on above: Performed By: #### 4 [id number] ####[facility] [address] [address] Abbi Choudhary M.D. [id number] CBC panel Auto (Bld)on 03-30 Erythrocyte distribution width (RBC) [Entitic vol] 12.6 % 11.6 - 14.8 % [facility] Hematocrit (Bld) [Volume fraction] 29.7 % Low 36.0 - 46.0 % [facility] Hemoglobin (Bld) [Mass/Vol] 9.4 g/dL Low 12.0 - 16.0 g/dL [facility] Interpretation and review of laboratory results Abnormal [facility] MCH (RBC) [Entitic mass] 30.2 pg 26.0 - 34.0 pg [facility] MCHC (RBC) [Mass/Vol] 31.6 g/dL 31.0 - 37.0 g/dL [facility] MCV (RBC) [Entitic vol] 95.5 fL 80.0 - 100.0 fL [facility] Nucleated RBC (Bld) [#/Vol] 0 10*3/uL [facility] Nucleated RBC/100 WBC (Bld) [Ratio] 0 % [facility] Platelet mean volume (Bld) [Entitic vol] 9.6 fL 9.4 - 12.4 fL [facility] Platelets (Bld) [#/Vol] 263 10*3/uL [facility] RBC (Bld) [#/Vol] 3.11 10*6/uL Low [facility] WBC (Bld) [#/Vol] 6.9 10*3/uL [place] [facility] CONSULTon 03-30-2024 CONSULT Normal [facility] Glucose (Bld) [Mass/Vol]on 05-30-2023 Glucose [Mass/Vol] 250 mg/dL High 65 - 99 mg/dL [facility] Interpretation and review of laboratory results Abnormal [facility] Glucose [Mass/Vol] 102 mg/dL High 65 - 99 mg/dL [facility] Interpretation and review of laboratory results Abnormal [facility] Glucose [Mass/Vol] 183 mg/dL High 65 - 99 mg/dL [facility] Interpretation and review of laboratory results Abnormal [facility] Glucose [Mass/Vol] 285 mg/dL High 65 - 99 mg/dL [facility] Interpretation and review of laboratory results Abnormal [facility] Laboratory - Microbiology an d Antimicrobial susceptibilityon 03-30-2024 Bacteria identified Cx Nom (Bld) No Growth after 5 days [facility] POC GLUCOSE - RALSon 024 Glucose [Mass/Vol] 250 mg/dL High [address] [place] [address] Comment on above: Performed By: #### 4 [id number] ####[facility] [address] [place], [place] [address] Abbi Choudhary M.D. [id number] Glucose [Mass/Vol] 102 mg/dL [address] Comment on above: Performed By: #### 4 [id number] ####[facility] [address] [place], [place] [address] Abbi Choudhary M.D. [id number] Glucose [Mass/Vol] 183 mg/dL [address] Comment on above: Performed By: #### 4 [id number] ####[facility] [address] [place], [place] [address] Abbi Choudhary M.D. [id number] Glucose [Mass/Vol] 285 mg/dL [address] Comment on above: Performed By: #### 4 [id number] ####[facility] [address] [place], [place] [address] Abbi Choudhary M.D. [id number] RENAL FUNCTION PANELon 03-30 Albumin [Mass/Vol] 3.3 g/dL Normal 3.2-5.2 [facility] Comment on above: Order Comment: [facility] has implemented the eGFR calculation approach that does not have a coefficient for race that conforms to the NKF-ASN Task Force Recommendations. Performed By: #### 4 [id number] ####[facility] [address] [place], [place] [address] Abbi Choudhary M.D. [id number] Anion gap [Moles/Vol] 11 mmol/L Normal - [facility] Comment on above: Order Comment: [facility] has implemented the eGFR calculation approach that does not have a coefficient for race that conforms to the NKF-ASN Task Force Recommendations. Performed By: #### 4 [id number] ####[facility] [address] [place], [place] [address] Abbi Choudhary M.D. [id number] Calcium [Mass/Vol] 9.1 mg/dL Normal 8.4-10.2 [facility] Comment on above: Order Comment: [facility] has implemented the eGFR calculation approach that does not have a coefficient for race that conforms to the NKF-ASN Task Force Recommendations. Performed By: #### 4 [id number] ####[facility] [address] [place], [place] [address] Abbi Choudhary M.D. [id number] Chloride [Moles/Vol] 108 mmol/L Normal 98-108 [facility] Comment on above: Order Comment: [facility] has implemented the eGFR calculation approach that does not have a coefficient for race that conforms to the NKF-ASN Task Force Recommendations. Performed By: #### 4 [id number] ####[facility] [address] [place], [place] [address] Abbi Choudhary M.D. [id number] Creatinine [Mass/Vol] 1.67 mg/dL High 0.40-1.10 [facility] Comment on above: Order Comment: [facility] has implemented the eGFR calculation approach that does not have a coefficient for race that conforms to the NKF-ASN Task Force Recommendations. Performed By: #### 4 [id number] ####[facility] [address] [place], [place] [address] Abbi Choudhary M.D. [id number] EGFR 38 mL/min/1.73 m2 Low >=60 [facility] Comment on above: Order Comment: [facility] has implemented the eGFR calculation approach that does not have a coefficient for race that conforms to the NKF-ASN Task Force Recommendations. Result Comment: Lorie mated GFR was calculated using the 2020 CKD-EPI creatinine equation. Performed By: #### 4 [id number] ####[facility] [address] [place], [place] [address] Abbi Choudhary M.D. [id number] Glucose [Mass/Vol] 301 mg/dL High 65-99 [facility] Comment on above: Order Comment: [facility] has implemented the eGFR calculation approach that does not have a coefficient for race that conforms to the NKF-ASN Task Force Recommendations. Performed By: #### 4 [id number] ####[facility] [address] [place], [place] [address] Abbi Choudhary M.D. [id number] HCO3 (Bld) [Moles/Vol] 24 mmol/L Normal 21-32 [facility] Comment on above: Order Comment: [facility] has implemented the eGFR calculation approach that does not have a coefficient for race that conforms to the NKF-ASN Task Force Recommendations. Performed By: #### 4 [id number] ####[facility] [address] [place], [place] [address] Abbi Chouhdary M.D. [id number] Phosphate [Mass/Vol] 3.0 mg/dL Normal 2.7-4.5 [facility] Comment on above: Order Comment: [facility] has implemented the eGFR calculation approach that does not have a coefficient for race that conforms to the NKF-ASN Task Force Recommendations. Performed By: #### 4 [id number] ####[facility] [address] [place], [place] [address] Abbi Choudhary M.D. [id number] Potassium [Moles/Vol] 4.1 mmol/L Normal 3.5-5.1 [facility] Comment on above: Order Comment: [facility] has implemented the eGFR calculation approach that does not have a coefficient for race that conforms to the NKF-ASN Task Force Recommendations. Performed By: #### 4 [id number] ####[facility] [address] [place], [place] [address] Abbi Choudhary M.D. [id number] Sodium [Moles/Vol] 139 mmol/L Normal 135-145 [facility] Comment on above: Order Comment: [facility] has implemented the eGFR calculation approach that does not have a coefficient for race that conforms to the NKF-ASN Task Force Recommendations. Performed By: #### 4 [id number] ####[facility] [address] [place], [place] [address] Abbi Choudhary M.D. [id number] Urea nitrogen [Mass/Vol] 29 mg/dL High 8-25 [facility] Comment on above: Order Comment: [facility] has implemented the eGFR calculation approach that does not have a coefficient for race that conforms to the NKF-ASN Task Force Recommendations. Performed By: #### 4 [id number] ####[facility] [address] [place], [place] [address] Abbi Choudhary M.D. [id number] Urea nitrogen/Creatinine [Mass ratio] 17.4 mg/mg Normal 10.0-20.0 [facility] Comment on above: Order Comment: [facility] has implemented the eGFR calculation approach that does not have a coefficient for race that conforms to the NKF-ASN Task Force Recommendations. Performed By: #### 4 [id number] ####[facility] [address] [place], [place] [address] Abbi Choudhary M.D. [id number] Renal function [facility] 03-30-2024 Albumin [Mass/Vol] 3.3 g/dL 3.2 - 5.2 g/dL [facility] Anion gap [Moles/Vol] 11 mmol/L 10 - 2 0 mmol/L [facility] Calcium [Mass/Vol] 9.1 mg/dL 8.4 - 10. 2 mg/dL [facility] Chloride [Moles/Vol] 108 mmol/L 98 - 10 8 mmol/L [facility] Creatinine [Mass/Vol] 1.67 mg/dL High 0.40 - 1.10 mg/dL [facility] GFR/1.73 sq M.predicted CKD-EPI (S/P/Bld) [Vol rate/Area] 38 Low - PINF [facility] Glucose [Mass/Vol] 301 mg/dL High 65 - 99 mg/dL [facility] HCO3 [Moles/Vol] 24 mmol/L 21 - 32 mmol/L [facility] Interpretation and review of laboratory results Abnormal [facility] Phosphate [Mass/Vol] 3 mg/dL 2.7 - 4 .5 mg/dL [facility] Potassium [Moles/Vol] 4.1 mmol/L 3.5 - 5.1 mmol/L [facility] Sodium [Moles/Vol] 139 mmol/L 135 - 145 mmol/L [facility] Urea nitrogen [Mass/Vol] 29 mg/dL High 8 - 25 mg/dL [facility] Urea nitrogen/Creatinine [Mass ratio] 17.4 mg/mg 10.0 - 20.0 [facility] Wound Aerobic And Anaerobic CultureOrdered By: Zayda Smith on 03-30-2024 Bacteria identified Aer cx Nom (Unsp spec) No Growth after 5 days [facility] h Microscopic observation Gram stain Nom (Unsp spec) Few WBC [facility] Microscopic observation Gram stain Nom (Unsp spec) Many RBC [facility] Microscopic observation Gram stain Nom (Unsp spec) No Organisms Seen [facility] CBCon 03-29-2024 AUTO NRBC 0.0 % Normal [facility] Comment on above: Performed By: #### [id number] ####[facility] [address] [address] Abbi Choudhary M.D. [id number] AUTO NRBC ABS COUNT 0.00 K/mcL Normal 0.00-0.00 [facility] Comment on above: Performed By: #### 4 [id number] ####[facility] [address] [place], [place] [address] Abbi Choudhary M.D. [id number] Erythrocyte distribution width (RBC) [Ratio] 12.7 % Normal 11.6-14.8 [facility] Comment on above: Performed By: #### 4 [id number] ####[facility] [address] [place], [place] [address] Abbi Choudhary M.D. [id number] Hematocrit (Bld) [Volume fraction] 28.0 % Low 36.0-46.0 [facility] Comment on above: Performed By: #### 4 [id number] ####[facility] [address] [place], [place] [address] Abbi Choudhary M.D. [id number] Hemoglobin (Bld) [Mass/Vol] 8.8 g/dL Low 12.0-16.0 [facility] Comment on above: Performed By: #### 4 [id number] ####[facility] [address] [place], [place] [address] Abbi Choudhary M.D. [id number] MCH (RBC) [Entitic mass] 30.6 pg Normal 26.0-34.0 [facility] Comment on above: Performed By: #### 4 [id number] ####[facility] [address] [place], [place] [address] Abbi Choudhary M.D. [id number] MCV (RBC) [Entitic vol] 97.2 fL Normal 80.0-100.0 [facility] Comment on above: Performed By: #### 4 [id number] ####[facility] [address] [place], [place] [address] Abbi Choudhary M.D. [id number] MEAN CORPUSCULAR HEMOGLOBIN CONC 31.4 g/dL Normal 31.0-37.0 [facility] Comment on above: Performed By: #### 4 [id number] ####[facility] [address] [place], [place] [address] Abbi Choudhary M.D. [id number] Platelet mean volume (Bld) [Entitic vol] 9.5 fL Normal 9.4-12.4 [facility] Comment on above: Performed By: #### 4 [id number] ####[facility] [address] [place], [place] [address] Abbi Choudhary M.D. [id number] Platelets (Bld) [#/Vol] 264 10*3/uL Normal 150-400 [facility] Comment on above: Performed By: #### 4 [id number] ####[facility] [address] [place], [place] [address] Abbi Choudhary M.D. [id number] RBC (Bld) [#/Vol] 2.88 10*6/uL Low 4.00-5.20 [facility] Comment on above: Performed By: #### 4 [id number] ####[facility] [address] [place], [place] [address] Abbi Choudhary M.D. [id number] WBC (Bld) [#/Vol] 7.18 10*3/uL Normal 4.50-11.00 [facility] Comment on above: Performed By: #### 4 [id number] ####[facility] [address] [place], [place] [address] Abbi Choudhary M.D. [id number] CBC panel Auto (Bld)on 03-29 Erythrocyte distribution width (RBC) [Entitic vol] 12.7 % 11.6 - 14.8 % [facility] Hematocrit (Bld) [Volume fraction] 28 % Low 36.0 - 46.0 % [facility] Hemoglobin (Bld) [Mass/Vol] 8.8 g/dL Low 12.0 - 16.0 g/dL [facility] Interpretation and review of laboratory results Abnormal [facility] MCH (RBC) [Entitic mass] 30.6 pg 26.0 - 34.0 pg [facility] MCHC (RBC) [Mass/Vol] 31.4 g/dL 31.0 - 37.0 g/dL [facility] MCV (RBC) [Entitic vol] 97.2 fL 80.0 - 100.0 fL [facility] Nucleated RBC (Bld) [#/Vol] 0 10*3/uL [facility] Nucleated RBC/100 WBC (Bld) [Ratio] 0 % [facility] Platelet mean volume (Bld) [Entitic vol] 9.5 fL 9.4 - 12.4 fL [facility] Platelets (Bld) [#/Vol] 264 10*3/uL [facility] RBC (Bld) [#/Vol] 2.88 10*6/uL Low [facility] WBC (Bld) [#/Vol] 7.18 10*3/uL [facility] Glucose (Bld) [Mass/Vol]on 05-29-2023 Glucose [Mass/Vol] 245 mg/dL High 65 - 99 mg/dL [facility] Interpretation and review of laboratory results Abnormal [facility] Glucose [Mass/Vol] 172 mg/dL High 65 - 99 mg/dL [facility] Interpretation and review of laboratory results Abnormal [facility] Glucose [Mass/Vol] 177 mg/dL High 65 - 99 mg/dL [facility] Interpretation and review of laboratory results Abnormal [facility] Glucose [Mass/Vol] 186 mg/dL High 65 - 99 mg/dL [facility] Interpretation and review of laboratory results Abnormal [facility] Glucose [Mass/Vol] 268 mg/dL High 65 - 99 mg/dL [facility] Interpretation and review of laboratory results Abnormal [facility] Glucose [Mass/Vol] 245 mg/dL High 65-99 [facility] Comment on above: Performed By: #### 4 [id number] ####[facility] [address] [place], [place] [address] Abbi Choudhary M.D. [id number] Glucose [Mass/Vol] 172 mg/dL [address] Comment on above: Performed By: #### 4 [id number] ####[facility] [address] [place], [place] [address] Abbi Choudhary M.D. [id number] Glucose [Mass/Vol] 177 mg/dL [address] Comment on above: Performed By: #### 4 [id number] ####[facility] [address] [place], [place] [address] Abbi Choudhary M.D. [id number] Glucose [Mass/Vol] 186 mg/dL [address] Comment on above: Performed By: #### 4 [id number] ####[facility] [address] [place], [place] [address] Abbi Choudhary M.D. [id number] Glucose [Mass/Vol] 268 mg/dL [address] Comment on above: Performed By: #### 4 [id number] ####[facility] [address] [place], [place] [address] Abbi Choudhary M.D. [id number] RENAL FUNCTION PANEL 03-29 Albumin [Mass/Vol] 3.0 g/dL Low 3.2-5.2 [facility] Comment on above: Order Comment: [facility] has implemented the eGFR calculation approach that does not have a coefficient for race that conforms to the NKF-ASN Task Force Recommendations. Performed By: #### 4 [id number] ####[facility] [address] [place], [place] [address] Abbi Choudhary M.D. [id number] Anion gap [Moles/Vol] 14 mmol/L Normal - [facility] Comment on above: Order Comment: [facility] has implemented the eGFR calculation approach that does not have a coefficient for race that conforms to the NKF-ASN Task Force Recommendations. Performed By: #### 4 [id number] ####[facility] [address] [place], [place] [address] Abbi Choudhary M.D. [id number] Calcium [Mass/Vol] 8.7 mg/dL Normal 8.4-10.2 [facility] Comment on above: Order Comment: [facility] has implemented the eGFR calculation approach that does not have a coefficient for race that conforms to the NKF-ASN Task Force Recommendations. Performed By: #### 4 [id number] ####[facility] [address] [place], [place] [address] Abbi Choudhary M.D. [id number] Chloride [Moles/Vol] 108 mmol/L Normal 98-108 [facility] Comment on above: Order Comment: [facility] has implemented the eGFR calculation approach that does not have a coefficient for race that conforms to the NKF-ASN Task Force Recommendations. Performed By: #### 4 [id number] ####[facility] [address] [place], [place] [address] Abbi Choudhary M.D. [id number] Creatinine [Mass/Vol] 2.19 mg/dL High 0.40-1.10 [facility] Comment on above: Order Comment: [facility] has implemented the eGFR calculation approach that does not have a coefficient for race that conforms to the NKF-ASN Task Force Recommendations. Performed By: #### 4 [id number] ####[facility] [address] [place], [place] [address] Abbi Choudhary M.D. [id number] EGFR 28 mL/min/1.73 m2 Low >=60 [facility] Comment on above: Order Comment: [facility] has implemented the eGFR calculation approach that does not have a coefficient for race that conforms to the NKF-ASN Task Force Recommendations. Result Comment: Lorie mated GFR was calculated using the 2020 CKD-EPI creatinine equation. Performed By: #### 4 [id number] ####[facility] [address] [place], [place] [address] Abbi Choudhary M.D. [id number] Glucose [Mass/Vol] 288 mg/dL High 65-99 [facility] Comment on above: Order Comment: [facility] has implemented the eGFR calculation approach that does not have a coefficient for race that conforms to the NKF-ASN Task Force Recommendations. Performed By: #### 4 [id number] ####[facility] [address] [place], [place] [address] Abbi Choudhary M.D. [id number] HCO3 (Bld) [Moles/Vol] 20 mmol/L Low 21-32 [facility] Comment on above: Order Comment: [facility] has implemented the eGFR calculation approach that does not have a coefficient for race that conforms to the NKF-ASN Task Force Recommendations. Performed By: #### 4 [id number] ####[facility] [address] [place], [place] [address] Abbi Choudhary M.D. [id number] Phosphate [Mass/Vol] 4.1 mg/dL Normal 2.7-4.5 [facility] Comment on above: Order Comment: [facility] has implemented the eGFR calculation approach that does not have a coefficient for race that conforms to the NKF-ASN Task Force Recommendations. Performed By: #### 4 [id number] ####[facility] [address] [place], [place] [address] Abbi Choudhary M.D. [id number] Potassium [Moles/Vol] 4.8 mmol/L Normal 3.5-5.1 [facility] Comment on above: Order Comment: [facility] has implemented the eGFR calculation approach that does not have a coefficient for race that conforms to the NKF-ASN Task Force Recommendations. Performed By: #### 4 [id number] ####[facility] [address] [place], [place] [address] Abbi Choudhary M.D. [id number] Sodium [Moles/Vol] 137 mmol/L Normal 135-145 [facility] Comment on above: Order Comment: [facility] has implemented the eGFR calculation approach that does not have a coefficient for race that conforms to the NKF-ASN Task Force Recommendations. Performed By: #### 4 [id number] ####[facility] [address] [place], [place] [address] Abbi Choudhary M.D. [id number] Urea nitrogen [Mass/Vol] 36 mg/dL High 8-25 [facility] Comment on above: Order Comment: [facility] has implemented the eGFR calculation approach that does not have a coefficient for race that conforms to the NKF-ASN Task Force Recommendations. Performed By: #### 4 [id number] ####[facility] [address] [place], [place] [address] Abbi Choudhary M.D. [id number] Urea nitrogen/Creatinine [Mass ratio] 16.4 mg/mg Normal 10.0-20.0 [facility] Comment on above: Order Comment: [facility] has implemented the eGFR calculation approach that does not have a coefficient for race that conforms to the NKF-ASN Task Force Recommendations. Performed By: #### [id number] ####[facility] [address] [place], [place] [address] Abbi Choudhary M.D. [id number] Renal function 2000 [facility] 03-29-2024 Albumin [Mass/Vol] 3 g/dL Low 3.2 - 5.2 g/dL [facility] Anion gap [Moles/Vol] 14 mmol/L 10 - 2 0 mmol/L [facility] Calcium [Mass/Vol] 8.7 mg/dL 8.4 - 10. 2 mg/dL [facility] Chloride [Moles/Vol] 108 mmol/L 98 - 10 8 mmol/L [facility] Creatinine [Mass/Vol] 2.19 mg/dL High 0.40 - 1.10 mg/dL [facility] GFR/1.73 sq M.predicted CKD-EPI (S/P/Bld) [Vol rate/Area] 28 Low - PINF [facility] Glucose [Mass/Vol] 288 mg/dL High 65 - 99 mg/dL [facility] HCO3 [Moles/Vol] 20 mmol/L Low 21 - 32 mmol/L [facility] Interpretation and review of laboratory results Abnormal [facility] Phosphate [Mass/Vol] 4.1 mg/dL 2.7 - 4 .5 mg/dL [facility] Potassium [Moles/Vol] 4.8 mmol/L 3.5 - 5.1 mmol/L [facility] Sodium [Moles/Vol] 137 mmol/L 135 - 145 mmol/L [facility] Urea nitrogen [Mass/Vol] 36 mg/dL High 8 - 25 mg/dL [facility] Urea nitrogen/Creatinine [Mass ratio] 16.4 mg/[facility] 10.0 - [facility]O NRBC 0.0 % Normal [facility] Comment on above: Performed By: #### 4 [id number] ####[facility] [address] [place], [place] [address] Abbi Choudhary M.D. [id number] AUTO NRBC ABS COUNT 0.00 K/mcL Normal 0.00-0.00 [facility] Comment on above: Performed By: #### 4 [id number] ####[facility] [address] [place], [place] [address] Abbi Choudhary M.D. [id number] Erythrocyte distribution width (RBC) [Ratio] 13.1 % Normal 11.6-14.8 [facility] Comment on above: Performed By: #### 4 [id number] ####[facility] [address] [place], [place] [address] Abbi Choudhary M.D. [id number] Hematocrit (Bld) [Volume fraction] 29.5 % Low 36.0-46.0 [facility] Comment on above: Performed By: #### 4 [id number] ####[facility] [address] [place], [place] [address] Abbi Choudhary M.D. [id number] Hemoglobin (Bld) [Mass/Vol] 9.2 g/dL Low 12.0-16.0 [facility] Comment on above: Performed By: #### 4 [id number] ####[facility] [address] [place], [place] [address] Abbi Choudhary M.D. [id number] MCH (RBC) [Entitic mass] 30.8 pg Normal 26.0-34.0 [facility] Comment on above: Performed By: #### 4 [id number] ####[facility] [address] [place], [place] [address] Abbi Choudhary M.D. [id number] MCV (RBC) [Entitic vol] 98.7 fL Normal 80.0-100.0 [facility] Comment on above: Performed By: #### 4 [id number] ####[facility] [address] [place], [place] [address] Abbi Choudhary M.D. [id number] MEAN CORPUSCULAR HEMOGLOBIN CONC 31.2 g/dL Normal 31.0-37.0 [facility] Comment on above: Performed By: #### 4 [id number] ####[facility] [address] [place], [place] [address] Abbi Choudhary M.D. [id number] Platelet mean volume (Bld) [Entitic vol] 9.4 fL Normal 9.4-12.4 [facility] Comment on above: Performed By: #### 4 [id number] ####[facility] [address] [place] [address] Abbi Choudhary M.D. [id number] Platelets (Bld) [#/Vol] 282 10*3/uL Normal 150-400 [facility] Comment on above: Performed By: #### 4 [id number] ####[facility] [address] [place] [address] Abbi Choudhary M.D. [id number] RBC (Bld) [#/Vol] 2.99 10*6/uL Low 4.00-5.20 [facility] Comment on above: Performed By: #### 4 [id number] ####[facility] [address] [place], [place] [address] Abbi Choudhary M.D. [id number] WBC (Bld) [#/Vol] 7.07 10*3/uL Normal 4.50-11.00 [facility] Comment on above: Performed By: #### 4 [id number] ####[facility] [address] [place], [place] [address] Abbi Choudhary M.D. [id number] CBC panel Auto (Bld)on 03-28 Erythrocyte distribution width (RBC) [Entitic vol] 13.1 % 11.6 - 14.8 % [facility] Hematocrit (Bld) [Volume fraction] 29.5 % Low 36.0 - 46.0 % [facility] Hemoglobin (Bld) [Mass/Vol] 9.2 g/dL Low 12.0 - 16.0 g/dL [facility] Interpretation and review of laboratory results Abnormal [facility] MCH (RBC) [Entitic mass] 30.8 pg 26.0 - 34.0 pg [facility] MCHC (RBC) [Mass/Vol] 31.2 g/dL 31.0 - 37.0 g/dL [facility] MCV (RBC) [Entitic vol] 98.7 fL 80.0 - 100.0 fL [facility] Nucleated RBC (Bld) [#/Vol] 0 10*3/uL [facility] Nucleated RBC/100 WBC (Bld) [Ratio] 0 % [facility] Platelet mean volume (Bld) [Entitic vol] 9.4 fL 9.4 - 12.4 fL [facility] Platelets (Bld) [#/Vol] 282 10*3/uL [facility] RBC (Bld) [#/Vol] 2.99 10*6/uL Low [facility] WBC (Bld) [#/Vol] 7.07 10*3/uL [facility] Glucose (Bld) [Mass/Vol]on 05-28-2023 Glucose [Mass/Vol] 170 mg/dL High 65 - 99 mg/dL [facility] Interpretation and review of laboratory results Abnormal [facility] Glucose [Mass/Vol] 226 mg/dL High 65 - 99 mg/dL [facility] Interpretation and review of laboratory results Abnormal [facility] Glucose [Mass/Vol] 248 mg/dL High 65 - 99 mg/dL [facility] Interpretation and review of laboratory results Abnormal [facility] Glucose [Mass/Vol] 275 mg/dL High 65 - 99 mg/dL [facility] Interpretation and review of laboratory results Abnormal [facility] Glucose [Mass/Vol] 274 mg/dL High 65 - 99 mg/dL [facility] Interpretation and review of laboratory results Abnormal [facility] POC GLUCOSE - [facility] 024 Glucose [Mass/Vol] 170 mg/dL High 65-99 [facility] Comment on above: Performed By: #### 4 [id number] ####[facility] [address] [place], [place] [address] Abbi Choudhary M.D. [id number] Glucose [Mass/Vol] 226 mg/dL High 65-99 [facility] Comment on above: Performed By: #### 4 [id number] ####[facility] [address] [place], [place] [address] Abbi Choudhary M.D. [id number] Glucose [Mass/Vol] 248 mg/dL High [address] [place] [address] Comment on above: Performed By: #### 4 [id number] ####[facility] [address] [place], [place] [address] Abbi Choudhary M.D. [id number] Glucose [Mass/Vol] 274 mg/dL [address] Comment on above: Performed By: #### 4 [id number] ####[facility] [address] [place], [place] [address] Abbi Choudhary M.D. [id number] RENAL FUNCTION PANEL 03-28 Albumin [Mass/Vol] 3.3 g/dL Normal 3.2-5.2 [facility] Comment on above: Order Comment: [facility] has implemented the eGFR calculation approach that does not have a coefficient for race that conforms to the NKF-ASN Task Force Recommendations. Performed By: #### 4 [id number] ####[facility] [address] [place], [place] [address] Abbi Choudhary M.D. [id number] Anion gap [Moles/Vol] 15 mmol/L Normal 10-20 [facility] Comment on above: Order Comment: [facility] has implemented the eGFR calculation approach that does not have a coefficient for race that conforms to the NKF-ASN Task Force Recommendations. Performed By: #### 4 [id number] ####[facility] [address] [place], [place] [address] Abbi Choudhary M.D. [id number] Calcium [Mass/Vol] 8.5 mg/dL Normal 8.4-10.2 [facility] Comment on above: Order Comment: [facility] has implemented the eGFR calculation approach that does not have a coefficient for race that conforms to the NKF-ASN Task Force Recommendations. Performed By: #### 4 [id number] ####[facility] [address] [place], [place] [address] Abbi Choudhary M.D. [id number] Chloride [Moles/Vol] 107 mmol/L Normal 98-108 [facility] Comment on above: Order Comment: [facility] has implemented the eGFR calculation approach that does not have a coefficient for race that conforms to the NKF-ASN Task Force Recommendations. Performed By: #### 4 [id number] ####[facility] [address] [place], [place] [address] Abbi Choudhary M.D. [id number] Creatinine [Mass/Vol] 2.47 mg/dL High 0.40-1.10 [facility] Comment on above: Order Comment: [facility] has implemented the eGFR calculation approach that does not have a coefficient for race that conforms to the NKF-ASN Task Force Recommendations. Performed By: #### 4 [id number] ####[facility] [address] [place] [address] Abbi Choudhary M.D. [id number] EGFR 24 mL/min/1.73 m2 Low >=60 [facility] Comment on above: Order Comment: [facility] has implemented the eGFR calculation approach that does not have a coefficient for race that conforms to the NKF-ASN Task Force Recommendations. Result Comment: Lorie mated GFR was calculated using the 2020 CKD-EPI creatinine equation. Performed By: #### 4 [id number] ####[facility] [address] [place] [address] Abbi Choudhary M.D. [id number] Glucose [Mass/Vol] 281 mg/dL High 65-99 [facility] Comment on above: Order Comment: [facility] has implemented the eGFR calculation approach that does not have a coefficient for race that conforms to the NKF-ASN Task Force Recommendations. Performed By: #### 4 [id number] ####[facility] [address] [place], [place] [address] Abbi Choudhary M.D. [id number] HCO3 (Bld) [Moles/Vol] 20 mmol/L Low 21-32 [facility] Comment on above: Order Comment: [facility] has implemented the eGFR calculation approach that does not have a coefficient for race that conforms to the NKF-ASN Task Force Recommendations. Performed By: #### 4 6449 #### LAB [address] [place], [place] Julio Choudhary M.D. [id number] Phosphate [Mass/Vol] 4.8 mg/dL High 2.7-4.5 [facility] Comment on above: Order Comment: [facility] has implemented the eGFR calculation approach that does not have a coefficient for race that conforms to the NKF-ASN Task Force Recommendations. Performed By: #### 4 6449 ####[facility] [address] [place], [place] [address] Abbi Choudhary M.D. [id number] Potassium [Moles/Vol] 5.3 mmol/L High 3.5-5.1 [facility] Comment on above: Order Comment: [facility] has implemented the eGFR calculation approach that does not have a coefficient for race that conforms to the NKF-ASN Task Force Recommendations. Performed By: #### 4 [id number] ####[facility] [address] [place] [address] Julio Choudhary M.D. [id number] Sodium [Moles/Vol] 137 mmol/L Normal 135-145 [facility] Comment on above: Order Comment: [facility] has implemented the eGFR calculation approach that does not have a coefficient for race that conforms to the NKF-ASN Task Force Recommendations. Performed By: #### 4 [id number] ####[facility] [address] [place], [place] [address] Abbi Choudhary M.D. [id number] Urea nitrogen [Mass/Vol] 34 mg/dL High 8-25 [facility] Comment on above: Order Comment: [facility] has implemented the eGFR calculation approach that does not have a coefficient for race that conforms to the NKF-ASN Task Force Recommendations. Performed By: #### 4 [id number] ####[facility] [address] [place], [place] [address] Abbi Choudhary M.D. [id number] Urea nitrogen/Creatinine [Mass ratio] 13.8 mg/mg Normal 10.0-20.0 [facility] Comment on above: Order Comment: [facility] has implemented the eGFR calculation approach that does not have a coefficient for race that conforms to the NKF-ASN Task Force Recommendations. Performed By: #### 4 [id number] ####[facility] [address] [place] [address] Abbi Choudhary M.D. [id number] Renal function 2000 [facility] 03-28-2024 Albumin [Mass/Vol] 3.3 g/dL 3.2 - 5.2 g/dL [facility] Anion gap [Moles/Vol] 15 mmol/L 10 - 2 0 mmol/L [facility] Calcium [Mass/Vol] 8.5 mg/dL 8.4 - 10. 2 mg/dL [facility] Chloride [Moles/Vol] 107 mmol/L 98 - 10 8 mmol/L [facility] Creatinine [Mass/Vol] 2.47 mg/dL High 0.40 - 1.10 mg/dL [facility] GFR/1.73 sq M.predicted CKD-EPI (S/P/Bld) [Vol rate/Area] 24 Low - PINF [facility] Glucose [Mass/Vol] 281 mg/dL High 65 - 99 mg/dL [facility] HCO3 [Moles/Vol] 20 mmol/L Low 21 - 32 mmol/L [facility] Interpretation and review of laboratory results Abnormal [facility] Phosphate [Mass/Vol] 4.8 mg/dL High 2.7 - 4 .5 mg/dL [facility] Potassium [Moles/Vol] 5.3 mmol/L High 3.5 - 5.1 mmol/L [facility] Sodium [Moles/Vol] 137 mmol/L 135 - 145 mmol/L [facility] Urea nitrogen [Mass/Vol] 34 mg/dL High 8 - 25 mg/dL [facility] Urea nitrogen/Creatinine [Mass ratio] 13.8 mg/mg 10.0 - 20.0 [facility] US Kidney - bilateral and Ur inary bladderon 03-28-2024 GE RIS GE RIS [facility] Kidney - bilateral and Ur inary bladderOrdered By: Leena Chiu on 03-28-2024 [facility] Work Phone: Bacteria identified Aer cx N om (Unsp spec)Ordered By: Keyla Guerrero on 03-27-2024 Interpretation and review of laboratory results Abnormal [facility] CBCon 03-27-2024 AUTO NRBC 0.0 % Normal [facility] Comment on above: Performed By: #### 4 [id number] ####[facility] [address] [place], [place] [address] Abbi Choudhary M.D. [id number] AUTO NRBC ABS COUNT 0.00 K/mcL Normal 0.00-0.00 [facility] Comment on above: Performed By: #### 4 [id number] ####[facility] [address] [place], [place] [address] Abbi Choudhary M.D. [id number] Erythrocyte distribution width (RBC) [Ratio] 13.2 % Normal 11.6-14.8 [facility] Comment on above: Performed By: #### 4 [id number] ####[facility] [address] [place], [place] [address] Abbi Choudhary M.D. [id number] Hematocrit (Bld) [Volume fraction] 30.8 % Low 36.0-46.0 [facility] Comment on above: Performed By: #### 4 [id number] ####[facility] [address] [place] [address] Abbi Choudhary M.D. [id number] Hemoglobin (Bld) [Mass/Vol] 9.6 g/dL Low 12.0-16.0 [facility] Comment on above: Performed By: #### 4 [id number] ####[facility] [address] [place], [place] [address] Abbi Choudhary M.D. [id number] MCH (RBC) [Entitic mass] 30.6 pg Normal 26.0-34.0 [facility] Comment on above: Performed By: #### 4 [id number] ####[facility] [address] [place], [place] [address] Abbi Choudhary M.D. [id number] MCV (RBC) [Entitic vol] 98.1 fL Normal 80.0-100.0 [facility] Comment on above: Performed By: #### 4 [id number] ####[facility] [address] [place], [place] [address] Abbi Choudhary M.D. [id number] MEAN CORPUSCULAR HEMOGLOBIN CONC 31.2 g/dL Normal 31.0-37.0 [facility] Comment on above: Performed By: #### 4 [id number] ####[facility] [address] [place], [place] [address] Abbi Choudhary M.D. [id number] Platelet mean volume (Bld) [Entitic vol] 9.4 fL Normal 9.4-12.4 [facility] Comment on above: Performed By: #### 4 [id number] ####[facility] [address] [place], [place] [address] Abbi Choudhary M.D. [id number] Platelets (Bld) [#/Vol] 308 10*3/uL Normal 150-400 [facility] Comment on above: Performed By: #### 4 [id number] ####[facility] [address] [place], [place] [address] Abbi Choudhary M.D. [id number] RBC (Bld) [#/Vol] 3.14 10*6/uL Low 4.00-5.20 [facility] Comment on above: Performed By: #### 4 [id number] ####[facility] [address] [place], [place] [address] Abbi Choudhary M.D. [id number] WBC (Bld) [#/Vol] 7.80 10*3/uL Normal 4.50-11.00 [facility] Comment on above: Performed By: #### 4 [id number] ####[facility] [address] [place], [place] [address] Abbi Choudhary M.D. [id number] CBC panel Auto (Bld)on 03-27 Erythrocyte distribution width (RBC) [Entitic vol] 13.2 % 11.6 - 14.8 % [facility] Hematocrit (Bld) [Volume fraction] 30.8 % Low 36.0 - 46.0 % [facility] Hemoglobin (Bld) [Mass/Vol] 9.6 g/dL Low 12.0 - 16.0 g/dL [facility] Interpretation and review of laboratory results Abnormal [facility] MCH (RBC) [Entitic mass] 30.6 pg 26.0 - 34.0 pg [facility] MCHC (RBC) [Mass/Vol] 31.2 g/dL 31.0 - 37.0 g/dL [facility] MCV (RBC) [Entitic vol] 98.1 fL 80.0 - 100.0 fL [facility] Nucleated RBC (Bld) [#/Vol] 0 10*3/uL [facility] Nucleated RBC/100 WBC (Bld) [Ratio] 0 % [facility] Platelet mean volume (Bld) [Entitic vol] 9.4 fL 9.4 - 12.4 fL [facility] Platelets (Bld) [#/Vol] 308 10*3/uL [facility] RBC (Bld) [#/Vol] 3.14 10*6/uL Low [facility] WBC (Bld) [#/Vol] 7.8 10*3/uL [facility] alth [facility] CK [Catalytic activity/Vol]o n 03-27-2024 Interpretation and review of laboratory results Normal [facility] COMPREHENSIVE METABOLIC PANE [place] 03-27-2024 Albumin [Mass/Vol] 3.1 g/dL Low 3.2-5.2 [facility] Comment on above: Order Comment: [facility] has implemented the eGFR calculation approach that does not have a coefficient for race that conforms to the NKF-ASN Task Force Recommendations. Performed By: #### 4 [id number] ####[facility] [address] [place] [address] Abbi Choudhary M.D. [id number] ALP [Catalytic activity/Vol] 91 U/L Normal 40-150 [facility] Comment on above: Order Comment: [facility] has implemented the eGFR calculation approach that does not have a coefficient for race that conforms to the NKF-ASN Task Force Recommendations. Performed By: #### 4 [id number] ####[facility] [address] [place] [address] Abbi Choudhary M.D. [id number] ALT [Catalytic activity/Vol] 11 U/L Normal 0-35 U/L [facility] Comment on above: Order Comment: [facility] has implemented the eGFR calculation approach that does not have a coefficient for race that conforms to the NKF-ASN Task Force Recommendations. Performed By: #### 4 [id number] ####[facility] [address] [place], [place] [address] Abbi Choudhary M.D. [id number] Anion gap [Moles/Vol] 14 mmol/L Normal 10-20 [facility] Comment on above: Order Comment: [facility] has implemented the eGFR calculation approach that does not have a coefficient for race that conforms to the NKF-ASN Task Force Recommendations. Performed By: #### 4 [id number] ####[facility] [address] [place], [place] [address] Abbi Choudhary M.D. [id number] AST [Catalytic activity/Vol] 11 U/L Normal 0-35 U/L [facility] Comment on above: Order Comment: [facility] has implemented the eGFR calculation approach that does not have a coefficient for race that conforms to the NKF-ASN Task Force Recommendations. Performed By: #### 4 [id number] ####[facility] [address] [place] [address] Abbi Choudhary M.D. [id number] Bilirubin [Mass/Vol] 0.3 mg/dL Normal 0.0-1.3 [facility] Comment on above: Order Comment: [facility] has implemented the eGFR calculation approach that does not have a coefficient for race that conforms to the NKF-ASN Task Force Recommendations. Performed By: #### 4 [id number] ####[facility] [address] [place] [address] Abbi Choudhary M.D. [id number] Calcium [Mass/Vol] 8.2 mg/dL Low 8.4-10.2 [facility] Comment on above: Order Comment: [facility] has implemented the eGFR calculation approach that does not have a coefficient for race that conforms to the NKF-ASN Task Force Recommendations. Performed By: #### 4 [id number] ####[facility] [address] [place], [place] [address] Abbi Choudhary M.D. [id number] Chloride [Moles/Vol] 110 mmol/L High 98-108 [facility] Comment on above: Order Comment: [facility] has implemented the eGFR calculation approach that does not have a coefficient for race that conforms to the NKF-ASN Task Force Recommendations. Performed By: #### 4 [id number] ####[facility] [address] [place], [place] [address] Abbi Choudhary M.D. [id number] Creatinine [Mass/Vol] 2.53 mg/dL High 0.40-1.10 [facility] Comment on above: Order Comment: [facility] has implemented the eGFR calculation approach that does not have a coefficient for race that conforms to the NKF-ASN Task Force Recommendations. Performed By: #### 4 [id number] ####[facility] [address] [place], [place] [address] Abbi Choudhary M.D. [id number] EGFR 23 mL/min/1.73 m2 Low >=60 [facility] Comment on above: Order Comment: [facility] has implemented the eGFR calculation approach that does not have a coefficient for race that conforms to the NKF-ASN Task Force Recommendations. Result Comment: Lorie mated GFR was calculated using the 2020 CKD-EPI creatinine equation. Performed By: #### 4 [id number] ####[facility] [address] [place] [address] Abbi Choudhary M.D. [id number] Glucose [Mass/Vol] 161 mg/dL High 65-99 [facility] Comment on above: Order Comment: [facility] has implemented the eGFR calculation approach that does not have a coefficient for race that conforms to the NKF-ASN Task Force Recommendations. Performed By: #### 4 [id number] ####[facility] [address] [place], [place] [address] Abbi Choudhary M.D. [id number] HCO3 (Bld) [Moles/Vol] 21 mmol/L Normal 21-32 [facility] Comment on above: Order Comment: [facility] has implemented the eGFR calculation approach that does not have a coefficient for race that conforms to the NKF-ASN Task Force Recommendations. Performed By: #### 4 [id number] ####[facility] [address] [place], [place] [address] Abbi Choudhary M.D. [id number] Potassium [Moles/Vol] 4.8 mmol/L Normal 3.5-5.1 [facility] Comment on above: Order Comment: [facility] has implemented the eGFR calculation approach that does not have a coefficient for race that conforms to the NKF-ASN Task Force Recommendations. Performed By: #### 4 6126 ####[facility] [address] [place], [place] [address] Abbi Choudhary M.D. [id number] Protein [Mass/Vol] 5.9 g/dL Low 6.0-8.0 [facility] Comment on above: Order Comment: [facility] has implemented the eGFR calculation approach that does not have a coefficient for race that conforms to the NKF-ASN Task Force Recommendations. Performed By: #### 4 6126 ####[facility] [address] [place], [place] [address] Abbi Choudhary M.D. [id number] Sodium [Moles/Vol] 140 mmol/L Normal 135-145 [facility] Comment on above: Order Comment: [facility] has implemented the eGFR calculation approach that does not have a coefficient for race that conforms to the NKF-ASN Task Force Recommendations. Performed By: #### 4 6126 ####[facility] [address] [place], [place] [address] Abbi Choudhary M.D. [id number] Urea nitrogen [Mass/Vol] 32 mg/dL High 8-25 [facility] Comment on above: Order Comment: [facility] has implemented the eGFR calculation approach that does not have a coefficient for race that conforms to the NKF-ASN Task Force Recommendations. Performed By: #### 4 6126 ####[facility] [address] [place], [place] [address] Abbi Choudhary M.D. [id number] Urea nitrogen/Creatinine [Mass ratio] 12.6 mg/mg Normal 10.0-20.0 [facility] Comment on above: Order Comment: [facility] has implemented the eGFR calculation approach that does not have a coefficient for race that conforms to the NKF-ASN Task Force Recommendations. Performed By: #### 4 6126 ####[facility] [address] [place], [place] [address] Abbi Choudhary M.D. [id number] CONSULTon 03-27-2024 CONSULT Normal [facility] CONSULT Normal [facility] CPKon 03-27-2024 CPK 56 U/L Normal 40-170 [facility] Comment on above: Performed By: #### 4 8261 ####[facility] [address] [place] [address] Abbi Choudhary M.D. [id number] CPK NO MBon 03-27-2024 CK [Catalytic activity/Vol] 56 U/L 40 - 170 U/L [facility] Comprehensive metabolic 2000 panelon 03-27-2024 Albumin [Mass/Vol] 3.1 g/dL Low 3.2 - 5.2 g/dL [facility] ALP [Catalytic activity/Vol] 91 U/L 40 - 150 U/L [facility] ALT [Catalytic activity/Vol] 11 U/L 0-35 U/L [facility] Anion gap [Moles/Vol] 14 mmol/L 10 - 2 0 mmol/L [facility] AST [Catalytic activity/Vol] 11 U/L 0-35 U/L [facility] Bilirubin [Mass/Vol] 0.3 mg/dL 0.0 - 1 .3 mg/dL [facility] Calcium [Mass/Vol] 8.2 mg/dL Low 8.4 - 10. 2 mg/dL [facility] Chloride [Moles/Vol] 110 mmol/L High 98 - 10 8 mmol/L [facility] Creatinine [Mass/Vol] 2.53 mg/dL High 0.40 - 1.10 mg/dL [facility] GFR/1.73 sq M.predicted CKD-EPI (S/P/Bld) [Vol rate/Area] 23 Low - PINF [facility] Glucose [Mass/Vol] 161 mg/dL High 65 - 99 mg/dL [facility] HCO3 [Moles/Vol] 21 mmol/L 21 - 32 mmol/L [facility] Interpretation and review of laboratory results Abnormal [facility] Potassium [Moles/Vol] 4.8 mmol/L 3.5 - 5.1 mmol/L [facility] Protein [Mass/Vol] 5.9 g/dL Low 6.0 - 8.0 g/dL [facility] Sodium [Moles/Vol] 140 mmol/L 135 - 145 mmol/L [facility] Urea nitrogen [Mass/Vol] 32 mg/dL High 8 - 25 mg/dL [facility] Urea nitrogen/Creatinine [Mass ratio] 12.6 mg/mg 10.0 - 20.0 [facility] Glucose (Bld) [Mass/Vol]on 05-27-2023 Glucose [Mass/Vol] 131 mg/dL High 65 - 99 mg/dL [facility] Interpretation and review of laboratory results Abnormal [facility] Glucose [Mass/Vol] 177 mg/dL High 65 - 99 mg/dL [facility] Interpretation and review of laboratory results Abnormal [facility] Glucose [Mass/Vol] 223 mg/dL High 65 - 99 mg/dL [facility] Interpretation and review of laboratory results Abnormal [facility] Glucose [Mass/Vol] 267 mg/dL High 65 - 99 mg/dL [facility] Interpretation and review of laboratory results Abnormal [facility] Glucose [Mass/Vol] 135 mg/dL High 65 - 99 mg/dL [facility] Interpretation and review of laboratory results Abnormal [facility] Glucose [Mass/Vol] 275 mg/dL High 65 - 99 mg/dL [facility] Interpretation and review of laboratory results Abnormal [facility] POC GLUCOSE - [facility] 024 Glucose [Mass/Vol] 131 mg/dL [address] Comment on above: Performed By: #### 4 6932 ####[facility] [address] [place], [place] [address] Abbi Choudhary M.D. [id number] Glucose [Mass/Vol] 177 mg/dL [address] Comment on above: Performed By: #### 4 6932 ####[facility] [address] [place], [place] [address] Abbi Choudhary M.D. [id number] Glucose [Mass/Vol] 223 mg/dL [address] Comment on above: Performed By: #### 4 6932 ####[facility] [address] [place], [place] [address] Abbi Choudhary M.D. [id number] Glucose [Mass/Vol] 267 mg/dL [address] Comment on above: Performed By: #### 4 6932 ####[facility] [address] [place], [place] [address] Abbi Choduhary M.D. [id number] Glucose [Mass/Vol] 135 mg/dL High 65-99 [facility] Comment on above: Performed By: #### 4 6932 ####[facility] [address] [place], [place] [address] Abbi Choudhary M.D. [id number] Glucose [Mass/Vol] 275 mg/dL High [facility] Comment on above: Performed By: #### 4 6932 ####[facility] [address] [place], [place] [address] Abbi Choudhary M.D. [id number] US Kidney - bilateral and Ur inary bladderon 03-27-2024 Radiology Study observation (narrative) [facility] US RENAL AND BLADDERon 03-27 US RENAL AND BLADDER Normal [facility] Comment on above: Order Comment: Injur y/Trauma or Illness?:Illness/OtherHow long have you had these symptoms (acute/chronic)?:UnknownReason for exam?:Renal failureHistory of cancer?:uSurgeries, chemotherapy, or radiation?:pacemakerType of Exam?:UnknownAdditional signs and symptoms?:no Urine Aerobic CultureOrdered By: Keyla Guerrero on 03-27-2024 Bacteria identified Aer cx Nom (Unsp spec) 50,000-100,000 CFU/mL Escherichia coli Abnormal [facility] XR CHEST LATERAL LEFTon XR CHEST LATERAL LEFT Normal [facility] Comment on above: Order Comment: Injur y/Trauma or Illness?:Illness/OtherHow long have you had these symptoms (acute/chronic)?:AcuteReason for exam?:Eval depth of port access needleHistory of cancer?:uSurgeries, chemotherapy, or radiation?:pacemakerType of Exam?:OngoingAdditional signs and symptoms?:unable to get blood return XR CHEST PA/APon 03-27-2024 XR CHEST PA/AP Normal [facility] Comment on above: Order Comment: Injur y/Trauma or Illness?:Illness/OtherHow long have you had these symptoms (acute/chronic)?:AcuteReason for exam?:port varifictionHistory of cancer?:uSurgeries, chemotherapy, or radiation?:pacemakerType of Exam?:UnknownAdditional signs and symptoms?:no XR Chest AP left lateral-dec ubituson 03-27-2024 GE RIS GE RIS [facility] Radiology Study observation (narrative) [facility] XR Chest PA and Abdomen APon 03-27-2024 GE RIS GE RIS [facility] Radiology Study observation (narrative) [facility] XR Chest PA and Abdomen APOr dered By: Jermaine Peralta on 03-27-2024 [facility] Work Phone: BASIC METABOLIC PANELon 11-0 Anion gap [Moles/Vol] 16 mmol/L Normal 10-20 [facility] Comment on above: Order Comment: [facility] has implemented the eGFR calculation approach that does not have a coefficient for race that conforms to the NKF-ASN Task Force Recommendations. Performed By: #### 4 6124 ####[facility] [address] [place] [address] Abbi Choudhary M.D. [id number] Calcium [Mass/Vol] 8.3 mg/dL Low 8.4-10.2 [facility] Comment on above: Order Comment: [facility] has implemented the eGFR calculation approach that does not have a coefficient for race that conforms to the NKF-ASN Task Force Recommendations. Performed By: #### 4 6124 ####[facility] [address] [place], [place] [address] Abbi Choudhary M.D. [id number] Chloride [Moles/Vol] 106 mmol/L Normal 98-108 [facility] Comment on above: Order Comment: [facility] has implemented the eGFR calculation approach that does not have a coefficient for race that conforms to the NKF-ASN Task Force Recommendations. Performed By: #### 4 6124 ####[facility] [address] [place], [place] [address] Abbi Choudhary M.D. [id number] Creatinine [Mass/Vol] 2.52 mg/dL High 0.40-1.10 [facility] Comment on above: Order Comment: [facility] has implemented the eGFR calculation approach that does not have a coefficient for race that conforms to the NKF-ASN Task Force Recommendations. Performed By: #### 4 6124 ####[facility] [address] [place], [place] [address] Abbi Choudhary M.D. [id number] EGFR 23 mL/min/1.73 m2 Low >=60 [facility] Comment on above: Order Comment: [facility] has implemented the eGFR calculation approach that does not have a coefficient for race that conforms to the NKF-ASN Task Force Recommendations. Result Comment: Lorie mated GFR was calculated using the 2020 CKD-EPI creatinine equation. Performed By: #### 4 6124 ####[facility] [address] [place], [place] [address] Abbi Choudhary M.D. [id number] Glucose [Mass/Vol] 333 mg/dL High 65-99 [facility] Comment on above: Order Comment: [facility] has implemented the eGFR calculation approach that does not have a coefficient for race that conforms to the NKF-ASN Task Force Recommendations. Performed By: #### 4 6124 #### LAB [address] [place], [place] [address] Abbi Choudhary M.D. [id number] HCO3 (Bld) [Moles/Vol] 20 mmol/L Low 21-32 [facility] Comment on above: Order Comment: [facility] has implemented the eGFR calculation approach that does not have a coefficient for race that conforms to the NKF-ASN Task Force Recommendations. Performed By: #### 4 6124 ####[facility] [address] [place], [place] [address] Abbi Choudhary M.D. [id number] Potassium [Moles/Vol] 4.8 mmol/L Normal 3.5-5.1 [facility] Comment on above: Order Comment: [facility] has implemented the eGFR calculation approach that does not have a coefficient for race that conforms to the NKF-ASN Task Force Recommendations. Performed By: #### 4 6124 ####[facility] [address] [place], [place] [address] Abbi Choudhary M.D. [id number] Sodium [Moles/Vol] 137 mmol/L Normal 135-145 [facility] Comment on above: Order Comment: [facility] has implemented the eGFR calculation approach that does not have a coefficient for race that conforms to the NKF-ASN Task Force Recommendations. Performed By: #### 4 6124 ####[facility] [address] [place], [place] [address] Abbi Choudhary M.D. [id number] Urea nitrogen [Mass/Vol] 30 mg/dL High 8-25 [facility] Comment on above: Order Comment: [facility] has implemented the eGFR calculation approach that does not have a coefficient for race that conforms to the NKF-ASN Task Force Recommendations. Performed By: #### 4 6124 ####[facility] [address] [place], [place] [address] Abbi Choudhary M.D. [id number] Urea nitrogen/Creatinine [Mass ratio] 11.9 mg/mg Normal 10.0-20.0 [facility] Comment on above: Order Comment: [facility] has implemented the eGFR calculation approach that does not have a coefficient for race that conforms to the NKF-ASN Task Force Recommendations. Performed By: #### 4 6124 ####[facility] [address] [place], [place] [address] Abbi Choudhary M.D. [id number] BETA-HYDROXYBUTYRATEon 03-26 BETA-HYDROXYBUTYRATE < Normal 0.0-0.3 [facility] Comment on above: Performed By: #### 4 5139 ####[facility] [address] [place], [place] [address] Abbi Choudhary M.D. [id number] Basic metabolic 2000 panelOr dered By: Wai Villatoro on 03-26-2024 Anion gap [Moles/Vol] 16 mmol/L 10 - 2 0 mmol/L [facility] Calcium [Mass/Vol] 8.3 mg/dL Low 8.4 - 10. 2 mg/dL [facility] Chloride [Moles/Vol] 106 mmol/L 98 - 10 8 mmol/L [facility] Creatinine [Mass/Vol] 2.52 mg/dL High 0.40 - 1.10 mg/dL [facility] GFR/1.73 sq M.predicted CKD-EPI (S/P/Bld) [Vol rate/Area] 23 Low - PINF [facility] Glucose [Mass/Vol] 333 mg/dL High 65 - 99 mg/dL [facility] HCO3 [Moles/Vol] 20 mmol/L Low 21 - 32 mmol/L [facility] Interpretation and review of laboratory results Abnormal [facility] Potassium [Moles/Vol] 4.8 mmol/L 3.5 - 5.1 mmol/L [facility] Sodium [Moles/Vol] 137 mmol/L 135 - 145 mmol/L [facility] Urea nitrogen [Mass/Vol] 30 mg/dL High 8 - 25 mg/dL [facility] Urea nitrogen/Creatinine [Mass ratio] 11.9 mg/mg 10.0 - 20.0 [facility] Beta hydroxybutyrate [Moles/ Vol]on 03-26-2024 Interpretation and review of laboratory results Normal [facility] Beta-Hydroxybutyrateon 03-26 Beta hydroxybutyrate [Moles/Vol] mmol/L 0.0 - 0.3 mmol/L [facility] CBC (INCLUDES DIFF/PLT)on Basophils (Bld) [#/Vol] 0.073 10*3/uL Normal 0-200 [facility] Comment on above: Performed By: #### 9 1431, 02900, 866, 899, 496, 6399, 50349 #### [facility] [place] [address] Credit Relationship Manager: Dean Maddox MD Basophils/100 WBC (Bld) 0.7 % Normal [facility] Comment on above: Performed By: #### 9 1431, 13557, 866, 899, 496, 6399, 19622 #### [facility] [place] [address] Credit Relationship Manager: Dean Maddox MD Eosinophils (Bld) [#/Vol] 0.354 10*3/uL Normal 15-500 [facility] Comment on above: Performed By: #### 9 1431, 82955, 866, 899, 496, 6399, 45790 #### [facility] [address], [address] [place] [address] Credit Relationship Manager: Dean Maddox MD Eosinophils/100 WBC (Bld) 3.4 % Normal [facility] Comment on above: Performed By: #### 9 1431, 90505, 866, 899, 496, 6399, 52249 #### [facility] of [place] [address] Credit Relationship Manager: Dean Maddox MD Erythrocyte distribution width (RBC) [Ratio] 13.0 % Normal 11.0-15.0 [facility] Comment on above: Performed By: #### 9 1431, 62080, 866, 899, 496, 6399, 69616 #### [facility] of [place] [address] Credit Relationship Manager: Dean Maddox MD Hematocrit (Bld) [Volume fraction] 40.1 % Normal 35.0-45.0 [facility] Comment on above: Performed By: #### 9 1431, 71191, 866, 899, 496, 6399, 50298 #### [facility] of [place] [address] Credit Relationship Manager: Dean Maddox MD Hemoglobin (Bld) [Mass/Vol] 12.8 g/dL Normal 11.7-15.5 [facility] Comment on above: Performed By: #### 9 1431, 63555, 866, 899, 496, 6399, 56036 #### [facility] of [place] [address] Credit Relationship Manager: Dean Maddox MD Lymphocytes (Bld) [#/Vol] 2.007 10*3/uL Normal 850-3900 [facility] Comment on above: Performed By: #### 9 1431, 82587, 866, 899, 496, 6399, 80268 #### [facility] of [place] [address] Credit Relationship Manager: Dean Maddox MD Lymphocytes/100 WBC (Bld) 19.3 % Normal [facility] Comment on above: Performed By: #### 9 1431, 77020, 866, 899, 496, 6399, 17227 #### [facility] of [place] [address], [address] [place] [address] Credit Relationship Manager: Dean Maddox MD MCH (RBC) [Entitic mass] 30.0 pg Normal 27.0-33.0 [facility] Comment on above: Performed By: #### 9 1431, 87759, 866, 899, 496, 6399, 38126 #### [facility] [place] [address] Credit Relationship Manager: Dean Maddox MD MCHC (RBC) [Mass/Vol] 31.9 g/dL Low 32.0-36.[address] [facility] Comment on above: Result Comment: For adults, a slight decrease in the calculated MCHC value (in the range of 30 to 32 g/dL) is most likely not clinically significant; however, it should be interpreted with caution in correlation with other red cell parameters and the patient's clinical condition. Performed By: #### 9 1431, 03140, 866, 899, 496, 6399, 97809 #### [facility] [address], [address] [place] [address] Credit Relationship Manager: Dean Maddox MD MCV (RBC) [Entitic vol] 94.1 fL Normal 80.0-100.0 [facility] Comment on above: Performed By: #### 9 1431, 66421, 866, 899, 496, 6399, 43123 #### [facility] [place] [address] Credit Relationship Manager: Dean Maddox MD Monocytes (Bld) [#/Vol] 0.478 10*3/uL Normal 200-950 [facility] Comment on above: Performed By: #### 9 1431, 39717, 866, 899, 496, 6399, 54236 #### [facility] of [address], [address] [place] [address] Credit Relationship Manager: Dean Maddox MD Monocytes/100 WBC (Bld) 4.6 % Normal [facility] Comment on above: Performed By: #### 9 1431, 70051, 866, 899, 496, 6399, 60570 #### [facility] of [place] [address] Credit Relationship Manager: Dean Maddox MD Neutrophils (Bld) [#/Vol] 7.488 10*3/uL Normal 7279-8516 [facility] Comment on above: Performed By: #### 9 1431, 92395, 866, 899, 496, 6399, 08484 #### [facility] of [address], [address] [place] [address] Credit Relationship Manager: Dean Maddox MD Neutrophils/100 WBC (Bld) 72 % Normal [facility] Comment on above: Performed By: #### 9 1431, 42118, 866, 899, 496, 6399, 03141 #### [facility] of [place] [address] Credit Relationship Manager: Dean Maddox MD Platelet mean volume (Bld) [Entitic vol] 9.6 fL Normal 7.5-12.5 [facility] Comment on above: Performed By: #### 9 1431, 85122, 866, 899, 496, 6399, 87374 #### [facility] of [place] [address] Credit Relationship Manager: Dean Maddox MD Platelets (Bld) [#/Vol] 367 10*3/uL Normal 140-400 [facility] Comment on above: Performed By: #### 9 1431, 89885, 866, 899, 496, 6399, 42716 #### [facility] of [address], [address] [place] [address] Credit Relationship Manager: Dean Maddox MD RBC (Bld) [#/Vol] 4.26 10*6/uL Normal 3.80-5.10 [facility] Comment on above: Performed By: #### 9 1431, 07388, 866, 899, 496, 6399, 57497 #### [facility] of [address], [address] [place] [address] Credit Relationship Manager: Dean Maddox MD WBC (Bld) [#/Vol] 10.4 10*3/uL Normal 3.8-10.8 [facility] Comment on above: Performed By: #### 9 1431, 39968, 866, 899, 496, 6399, 48125 #### [facility] [place] [address] Credit Relationship Manager: Dean Maddox MD [facility] METABOLIC [facility] 03-26-2024 Albumin [Mass/Vol] 4.1 g/dL Normal 3.6-5.1 [facility] Comment on above: Order Comment: COLLE CTION KIT GIVEN TO PATIENT. PATIENT ADVISED TO RETURN. Performed By: #### 9 1431, 55610, 866, 899, 496, 6399, 69029 #### [facility] [place] [address] Credit Relationship Manager: Dean Maddox MD Albumin/Globulin [Mass ratio] 1.3 {ratio} Normal 1.0-2.5 [facility] Comment on above: Order Comment: COLLE CTION KIT GIVEN TO PATIENT. PATIENT ADVISED TO RETURN. Performed By: #### 9 1431, 83482, 866, 899, 496, 6399, 60763 #### [facility] [address], [address] [place] [address] Credit Relationship Manager: Dean Maddox MD ALP [Catalytic activity/Vol] 114 U/L Normal 31-125 [facility] Comment on above: Order Comment: COLLE CTION KIT GIVEN TO PATIENT. PATIENT ADVISED TO RETURN. Performed By: #### 9 1431, 58485, 866, 899, 496, 6399, 19017 #### [facility] [address], [address] [place] [address] Credit Relationship Manager: Dean Maddox MD ALT [Catalytic activity/Vol] 11 U/L Normal 6-29 [facility] Comment on above: Order Comment: COLLE CTION KIT GIVEN TO PATIENT. PATIENT ADVISED TO RETURN. Performed By: #### 9 1431, 94964, 866, 899, 496, 6399, 51950 #### [facility] [address], [address] [place] [address] Credit Relationship Manager: Dean Maddox MD AST [Catalytic activity/Vol] 9 U/L Low 10-35 [facility] Comment on above: Order Comment: COLLE CTION KIT GIVEN TO PATIENT. PATIENT ADVISED TO RETURN. Performed By: #### 9 1431, 49392, 866, 899, 496, 6399, 72025 #### [facility] [address], [address] [place] [address] Credit Relationship Manager: Dean Maddox MD Bilirubin [Mass/Vol] 0.5 mg/dL Normal 0.2-1.2 [facility] Comment on above: Order Comment: COLLE CTION KIT GIVEN TO PATIENT. PATIENT ADVISED TO RETURN. Performed By: #### 9 1431, 35904, 866, 899, 496, 6399, 29476 #### [facility] [address], [address] [place] [address] Credit Relationship Manager: Dean Maddox MD Calcium [Mass/Vol] 9.8 mg/dL Normal 8.6-10.2 [facility] Comment on above: Order Comment: COLLE CTION KIT GIVEN TO PATIENT. PATIENT ADVISED TO RETURN. Performed By: #### 9 1431, 46636, 866, 899, 496, 6399, 68596 #### [facility] [address], [address] [place] [address] Credit Relationship Manager: Dean Maddox MD Chloride [Moles/Vol] 106 mmol/L Normal 98-110 [facility] Comment on above: Order Comment: COLLE CTION KIT GIVEN TO PATIENT. PATIENT ADVISED TO RETURN. Performed By: #### 9 1431, 18517, 866, 899, 496, 6399, 04073 #### [facility] [address], [address] [place] [address] Credit Relationship Manager: Dean Maddox MD CO2 [Moles/Vol] 23 mmol/L Normal 20-32 [facility] Comment on above: Order Comment: COLLE CTION KIT GIVEN TO PATIENT. PATIENT ADVISED TO RETURN. Performed By: #### 9 1431, 02395, 866, 899, 496, 6399, 91871 #### [facility] [address], [address] [place] [address] Credit Relationship Manager: Dean Maddox MD Creatinine [Mass/Vol] 1.28 mg/dL High 0.50-0.99 [email or web address] Comment on above: Order Comment: COLLE CTION KIT GIVEN TO PATIENT. PATIENT ADVISED TO RETURN. Performed By: #### 9 1431, 46727, 866, 899, 496, 6399, 33533 #### [facility] [address], [address] [place] [address] Credit Relationship Manager: Dean Maddox MD GFR/1.73 sq M.predicted among non-blacks MDRD (S/P/Bld) [Vol rate/Area] 52 mL/min/{1.73_m2} Low > OR = 60 [facility] Comment on above: Order Comment: COLLE CTION KIT GIVEN TO PATIENT. PATIENT ADVISED TO RETURN. Performed By: #### 9 1431, 56739, 866, 899, 496, 6399, 04940 #### [facility] [place] [address] Credit Relationship Manager: Dean Maddox MD Globulin (S) [Mass/Vol] 3.1 g/dL Normal 1.9-3.7 [facility] Comment on above: Order Comment: COLLE CTION KIT GIVEN TO PATIENT. PATIENT ADVISED TO RETURN. Performed By: #### 9 1431, 60304, 866, 899, 496, 6399, 05553 #### [facility] [place] [address] Credit Relationship Manager: Dean Maddox MD Glucose [Mass/Vol] 239 mg/dL High 65-99 [facility] Comment on above: Order Comment: COLLE CTION KIT GIVEN TO PATIENT. PATIENT ADVISED TO RETURN. Result Comment: Fasting reference interval For someone without known diabetes, a glucose value >125 mg/dL indicates that they may have diabetes and this should be confirmed with a follow-up test. Performed By: #### 9 1431, 78433, 866, 899, 496, 6399, 08587 #### [facility] [address], [address] [place] [address] Credit Relationship Manager: Dean Maddox MD Potassium [Moles/Vol] 4.3 mmol/L Normal 3.5-5.[address] [facility] Comment on above: Order Comment: COLLE CTION KIT GIVEN TO PATIENT. PATIENT ADVISED TO RETURN. Performed By: #### 9 1431, 54532, 866, 899, 496, 6399, 75736 #### [facility] [place] [address] Credit Relationship Manager: Dean Maddox MD Protein [Mass/Vol] 7.2 g/dL Normal 6.1-8.1 [facility] Comment on above: Order Comment: COLLE CTION KIT GIVEN TO PATIENT. PATIENT ADVISED TO RETURN. Performed By: #### 9 1431, 16894, 866, 899, 496, 6399, 52379 #### [facility] [place] [address] Credit Relationship Manager: Dean Maddox MD Sodium [Moles/Vol] 138 mmol/L Normal 135-146 [facility] Comment on above: Order Comment: COLLE CTION KIT GIVEN TO PATIENT. PATIENT ADVISED TO RETURN. Performed By: #### 9 1431, 80483, 866, 899, 496, 6399, 32378 #### [facility] [address], [address] [place] [address] Credit Relationship Manager: Dean Maddox MD Urea nitrogen [Mass/Vol] 34 mg/dL High 7-25 [facility] Comment on above: Order Comment: COLLE CTION KIT GIVEN TO PATIENT. PATIENT ADVISED TO RETURN. Performed By: #### 9 1431, 45458, 866, 899, 496, 6399, 65842 #### [facility] [address], [address] [place] [phone] Credit Relationship Manager: Dean Maddox MD Urea nitrogen/Creatinine [Mass ratio] 27 mg/mg High 6-22 [facility] Comment on above: Order Comment: COLLE CTION KIT GIVEN TO PATIENT. PATIENT ADVISED TO RETURN. Performed By: #### 9 1431, 41201, 866, 899, 496, 6399, 65543 #### [facility] [address], [address] [place] [phone] Credit Relationship Manager: Dean Maddox MD CREATININE, SERUMon 03-26-20 24 Creatinine [Mass/Vol] 1.67 mg/dL High 0.40-1.10 [facility] Comment on above: Order Comment: For m onitoring while [facility]com[facility] has implemented the eGFR calculation approach that does not have a coefficient for race that conforms to the NKF-ASN Task Force Recommendations. Performed By: #### 4 5336 ####[facility] [address] [place], [place] [address] Abbi Choudhary M.D. [id number] EGFR 38 mL/min/1.73 m2 Low >=60 [facility] Comment on above: Order Comment: For m onitoring while on vancomycin therapyMer[facility] has implemented the eGFR calculation approach that does not have a coefficient for race that conforms to the NKF-ASN Task Force Recommendations. Result Comment: Lorie mated GFR was calculated using the 2020 CKD-EPI creatinine equation. Performed By: #### 4 5336 ####[facility] [address] [place], [place] [address] Abbi Choudhary M.D. [id number] Creatinine [Mass/Vol]on GFR/1.73 sq M.predicted CKD-EPI (S/P/Bld) [Vol rate/Area] 38 Low [facility] Interpretation and review of laboratory results Abnormal [facility] Creatinine, Serumon 03-26-20 24 Creatinine [Mass/Vol] 1.67 mg/dL High 0.40 - 1.10 mg/dL [facility] Glucose (Bld) [Mass/Vol]on 05-26-2023 Glucose [Mass/Vol] 328 mg/dL High 65 - 99 mg/dL [facility] Interpretation and review of laboratory results Abnormal [facility] Glucose [Mass/Vol] 312 mg/dL High 65 - 99 mg/dL [facility] Interpretation and review of laboratory results Abnormal [facility] Glucose [Mass/Vol] 214 mg/dL High 65 - 99 mg/dL [facility] Interpretation and review of laboratory results Abnormal [facility] Glucose [Mass/Vol] 101 mg/dL High 65 - 99 mg/dL [facility] Interpretation and review of laboratory results Abnormal [facility] Glucose [Mass/Vol] 72 mg/dL 65 - 99 mg/dL [facility] Interpretation and review of laboratory results Normal [facility] LEVETIRACETAMon 03-26-2024 levETIRAcetam [Mass/Vol] ug/mL Low [facility] Comment on above: Result Comment: Refe rence Range: 12.0-46.0 Toxic level is not well established. Interpretation should include a clinical evaluation. For additional information, please refer to http://education.[employer]/faq/AQC160 (This link is being provided for informational/educational purposes only.) This test was developed and its analytical performance characteristics have been determined by [employer]. It has not been cleared or approved by the FDA. This assay has been validated pursuant to the CLIA regulations and is used for clinical purposes. Performed By: #### 9 1431, 09069, 866, 899, 496, 6399, 92809 #### [facility] [address], [address] [place] [phone] Credit Relationship Manager: Dean Zimmer 03-26-2024 Extra Tube Hold for add-ons. [facility] Glucose [Mass/Vol] 328 mg/dL High 6599 [facility] Comment on above: Performed By: #### 4 6932 ####[facility] [address] [place], [place] [address] Abbi Choudhary M.D. [id number] Glucose [Mass/Vol] 312 mg/dL [address] Comment on above: Performed By: #### 4 6932 ####[facility] [address] [place], [place] [address] Abbi Choudhary M.D. [id number] Glucose [Mass/Vol] 214 mg/dL High 65-99 [facility] Comment on above: Performed By: #### 4 6932 ####[facility] [address] [place], [place] [address] Abbi Choudhary M.D. [id number] Glucose [Mass/Vol] 101 mg/dL High 65-[address] [place] [address] Comment on above: Performed By: #### 4 6932 ####[facility] [address] [place], [place] [address] Abbi Choudhary M.D. [id number] Glucose [Mass/Vol] 72 mg/dL Normal 65-99 [facility] Comment on above: Performed By: #### 4 6932 ####[facility] [address] [place], [place] [address] Abbi Choudhary M.D. [id number] BASIC METABOLIC PANELon 11-0 Anion gap [Moles/Vol] 15 mmol/L Normal 10-20 [facility] Comment on above: Order Comment: [facility] has implemented the eGFR calculation approach that does not have a coefficient for race that conforms to the NKF-ASN Task Force Recommendations. Performed By: #### 4 6124 ####[facility] [address] [place], [place] [address] Abbi Choudhary M.D. [id number] Calcium [Mass/Vol] 8.3 mg/dL Low 8.4-10.2 [facility] Comment on above: Order Comment: [facility] has implemented the eGFR calculation approach that does not have a coefficient for race that conforms to the NKF-ASN Task Force Recommendations. Performed By: #### 4 6124 ####[facility] [address] [place], [place] [address] Abbi Choudhary M.D. [id number] Chloride [Moles/Vol] 105 mmol/L Normal 98-108 [facility] Comment on above: Order Comment: [facility] has implemented the eGFR calculation approach that does not have a coefficient for race that conforms to the NKF-ASN Task Force Recommendations. Performed By: #### 4 6124 ####[facility] [address] [place], [place] [address] Abbi Choudhary M.D. [id number] Creatinine [Mass/Vol] 1.35 mg/dL High 0.40-1.10 [facility] Comment on above: Order Comment: [facility] has implemented the eGFR calculation approach that does not have a coefficient for race that conforms to the NKF-ASN Task Force Recommendations. Performed By: #### 4 6124 ####[facility] [address] [place], [place] [address] Abbi Choudhary M.D. [id number] EGFR 49 mL/min/1.73 m2 Low >=60 [facility] Comment on above: Order Comment: [facility] has implemented the eGFR calculation approach that does not have a coefficient for race that conforms to the NKF-ASN Task Force Recommendations. Result Comment: Lorie mated GFR was calculated using the 2020 CKD-EPI creatinine equation. Performed By: #### 4 6124 ####[facility] [address] [place], [place] [address] Abbi Choudhary M.D. [id number] Glucose [Mass/Vol] 345 mg/dL High 65-99 [facility] Comment on above: Order Comment: [facility] has implemented the eGFR calculation approach that does not have a coefficient for race that conforms to the NKF-ASN Task Force Recommendations. Performed By: #### 4 6124 ####[facility] [address] [place], [place] [address] Abbi Choudhary M.D. [id number] HCO3 (Bld) [Moles/Vol] 22 mmol/L Normal 21-32 [facility] Comment on above: Order Comment: [facility] has implemented the eGFR calculation approach that does not have a coefficient for race that conforms to the NKF-ASN Task Force Recommendations. Performed By: #### 4 6124 ####[facility] [address] [place], [place] [address] Abbi Choudhary M.D. [id number] Potassium [Moles/Vol] 4.3 mmol/L Normal 3.5-5.1 [facility] Comment on above: Order Comment: [facility] has implemented the eGFR calculation approach that does not have a coefficient for race that conforms to the NKF-ASN Task Force Recommendations. Performed By: #### 4 6124 ####[facility] [address] [place], [place] [address] Abbi Choudhary M.D. [id number] Sodium [Moles/Vol] 138 mmol/L Normal 135-145 [facility] Comment on above: Order Comment: [facility] has implemented the eGFR calculation approach that does not have a coefficient for race that conforms to the NKF-ASN Task Force Recommendations. Performed By: #### 4 6124 ####[facility] [address] [place], [place] [address] Abbi Choudhary M.D. [id number] Urea nitrogen [Mass/Vol] 23 mg/dL Normal 8-25 [facility] Comment on above: Order Comment: [facility] has implemented the eGFR calculation approach that does not have a coefficient for race that conforms to the NKF-ASN Task Force Recommendations. Performed By: #### 4 6124 ####[facility] [address] [place], [place] [address] Abbi Choudhary M.D. [id number] Urea nitrogen/Creatinine [Mass ratio] 17.0 mg/mg Normal 10.0-20.0 [facility] Comment on above: Order Comment: [facility] has implemented the eGFR calculation approach that does not have a coefficient for race that conforms to the NKF-ASN Task Force Recommendations. Performed By: #### 4 6124 ####[facility] [address] [place], [place] [address] Abbi Choudhary M.D. [id number] BLOOD CULTURE AEROBIC/ANAERO [facility] 03-25-2024 BLOOD CULTURE AEROBIC/ANAEROBIC BLOOD CULTURE No Growth after 5 days Normal [facility] Comment on above: Performed By: #### 4 4014 ####[facility] [place] [address] Swapnil Brewer M.D. [id number] Basic metabolic 2000 panelon 03-25-2024 Anion gap [Moles/Vol] 15 mmol/L 10 - 2 0 mmol/L [facility] Calcium [Mass/Vol] 8.3 mg/dL Low 8.4 - 10. 2 mg/dL [facility] Chloride [Moles/Vol] 105 mmol/L 98 - 10 8 mmol/L [facility] Creatinine [Mass/Vol] 1.35 mg/dL High 0.40 - 1.10 mg/dL [facility] GFR/1.73 sq M.predicted CKD-EPI (S/P/Bld) [Vol rate/Area] 49 Low - PINF [facility] Glucose [Mass/Vol] 345 mg/dL High 65 - 99 mg/dL [facility] HCO3 [Moles/Vol] 22 mmol/L 21 - 32 mmol/L [facility] Interpretation and review of laboratory results Abnormal [facility] Potassium [Moles/Vol] 4.3 mmol/L 3.5 - 5.1 mmol/L [facility] Sodium [Moles/Vol] 138 mmol/L 135 - 145 mmol/L [facility] Urea nitrogen [Mass/Vol] 23 mg/dL 8 - 25 mg/dL [facility] Urea nitrogen/Creatinine [Mass ratio] 17 mg/mg 10.0 - 20.0 [facility] CBCon 03-25-2024 AUTO NRBC 0.0 % Normal [facility] Comment on above: Performed By: #### 4 5218 ####[facility] [address] [place], [place] [address] Abbi Choudhary M.D. [id number] AUTO NRBC ABS COUNT 0.00 K/mcL Normal 0.00-0.00 [facility] Comment on above: Performed By: #### 4 5218 ####[facility] [address] [place], [place] [address] Abbi Choudhary M.D. [id number] Erythrocyte distribution width (RBC) [Ratio] 13.0 % Normal 11.6-14.8 [facility] Comment on above: Performed By: #### 4 5218 ####[facility] [address] [place], [place] [address] Abbi Choudhary M.D. [id number] Hematocrit (Bld) [Volume fraction] 29.7 % Low 36.0-46.0 [facility] Comment on above: Performed By: #### 4 5218 ####[facility] [address] [place], [place] [address] Abbi Choudhary M.D. [id number] Hemoglobin (Bld) [Mass/Vol] 10.2 g/dL Low 12.0-16.0 [facility] Comment on above: Performed By: #### 4 5218 ####[facility] [address] [place], [place] [address] Abbi Choudhary M.D. [id number] MCH (RBC) [Entitic mass] 30.7 pg Normal 26.0-34.0 [facility] Comment on above: Performed By: #### 4 5218 ####[facility] [address] [place], [place] [address] Abbi Choudhary M.D. [id number] MCV (RBC) [Entitic vol] 89.5 fL Normal 80.0-100.0 [facility] Comment on above: Performed By: #### 4 5218 ####[facility] [address] [place], [place] [address] Abbi Choudhary M.D. [id number] MEAN CORPUSCULAR HEMOGLOBIN CONC 34.3 g/dL Normal 31.0-37.0 [facility] Comment on above: Performed By: #### 4 5218 ####[facility] [address] [place], [place] [address] Abbi Choudhary M.D. [id number] Platelet mean volume (Bld) [Entitic vol] 9.0 fL Low 9.4-12.4 [facility] Comment on above: Performed By: #### 4 5218 ####[facility] [address] [place], [place] [address] Abbi Choudhary M.D. [id number] Platelets (Bld) [#/Vol] 297 10*3/uL Normal 150-400 [facility] Comment on above: Performed By: #### 4 5218 ####[facility] [address] [place], [place] [address] Abbi Choudhary M.D. [id number] RBC (Bld) [#/Vol] 3.32 10*6/uL Low 4.00-5.20 [facility] Comment on above: Performed By: #### 4 5218 ####[facility] [address] [place], [place] [address] Abbi Choudhary M.D. [id number] WBC (Bld) [#/Vol] 8.66 10*3/uL Normal 4.50-11.00 [facility] Comment on above: Performed By: #### 4 [id number] ####[facility] [address] [place], [place] [address] Abbi Choudhary M.D. [id number] CBC panel Auto (Bld)on 03-25 Erythrocyte distribution width (RBC) [Entitic vol] 13 % 11.6 - 14.8 % [facility] Hematocrit (Bld) [Volume fraction] 29.7 % Low 36.0 - 46.0 % [facility] Hemoglobin (Bld) [Mass/Vol] 10.2 g/dL Low 12.0 - 16.0 g/dL [facility] Interpretation and review of laboratory results Abnormal [facility] MCH (RBC) [Entitic mass] 30.7 pg 26.0 - 34.0 pg [facility] MCHC (RBC) [Mass/Vol] 34.3 g/dL 31.0 - 37.0 g/dL [facility] MCV (RBC) [Entitic vol] 89.5 fL 80.0 - 100.0 fL [facility] Nucleated RBC (Bld) [#/Vol] 0 10*3/uL [facility] Nucleated RBC/100 WBC (Bld) [Ratio] 0 % [facility] Platelet mean volume (Bld) [Entitic vol] 9 fL Low 9.4 - 12.4 fL [facility] Platelets (Bld) [#/Vol] 297 10*3/uL [facility] RBC (Bld) [#/Vol] 3.32 10*6/uL Low [facility] ealt WBC (Bld) [#/Vol] 8.66 10*3/uL [facility] ealth [facility] CONSULTon 03-25-2024 CONSULT Normal [facility] ECG 12- Leadon 03-25-2024 Atrial Rate 109 BPM [facility] P [place] 51 degrees [facility] P-R Interval 176 ms [facility] Q-T Interval 328 ms [facility] QRS Duration 82 ms [facility] QTC Calculation (Bezet) 441 ms [facility] R [place] 14 degrees [facility] T [place] 37 degrees [facility] Ventricular Rate 109 BPM [facility] th MUSE [facility] EKGon 03-25-2024 [facility] Glucose (Bld) [Mass/Vol]on 05-25-2023 Glucose [Mass/Vol] 117 mg/dL High 65 - 99 mg/dL [facility] Interpretation and review of laboratory results Abnormal [facility] Glucose [Mass/Vol] 142 mg/dL High 65 - 99 mg/dL [facility] Interpretation and review of laboratory results Abnormal [facility] Glucose [Mass/Vol] 148 mg/dL High 65 - 99 mg/dL [facility] Interpretation and review of laboratory results Abnormal [facility] Glucose [Mass/Vol] 286 mg/dL High 65 - 99 mg/dL [facility] Interpretation and review of laboratory results Abnormal [facility] Glucose [Mass/Vol] 343 mg/dL High 65 - 99 mg/dL [facility] Interpretation and review of laboratory results Abnormal [facility] Glucose [Mass/Vol] 469 mg/dL Critically high 65 - 9 9 mg/dL [facility] Interpretation and review of laboratory results Abnormal [facility] Glucose [Mass/Vol] mg/dL Critically high 65 - 9 9 mg/dL [facility] Interpretation and review of laboratory results Abnormal [facility] Gold Topon 03-25-2024 Extra Tube Hold [facility] add-ons. [facility] H AND Paulino 03-25-2024 H AND P Normal [facility] LACTIC ACID, PLASMAon 2023 LACTIC ACID, PLASMA 2.1 mmol/L High 0.6-2.0 [facility] Comment on above: Performed By: #### 4 6053 ####[facility] [address] [place] [address] Abbi Choudhary M.D. [id number] Lactate [Moles/Vol]on 2023 Interpretation and review of laboratory results Abnormal [facility] Lactic Acid, Plasmaon 2023 Lactate [Moles/Vol] 2.1 mmol/L High 0.6 - 2. 0 mmol/L [facility] POC GLUCOSE - RALSon 024 Glucose [Mass/Vol] 117 mg/dL High 65-99 [facility] Comment on above: Performed By: #### 4 6932 ####[facility] [address] [place], [place] [address] Abbi Choudhary M.D. [id number] Glucose [Mass/Vol] 142 mg/dL [address] Comment on above: Performed By: #### 4 6932 ####[facility] [address] [place], [place] [address] Abbi Choudhary M.D. [id number] Glucose [Mass/Vol] 148 mg/dL [address] Comment on above: Performed By: #### 4 6932 ####[facility] [address] [place], [place] [address] Abbi Choudhary M.D. [id number] Glucose [Mass/Vol] 286 mg/dL [address] Comment on above: Performed By: #### 4 6932 ####[facility] [address] [place], [place] [address] Abbi Cohudhary M.D. [id number] Glucose [Mass/Vol] 343 mg/dL [address] Comment on above: Performed By: #### 4 6932 ####[facility] [address] [place], [place] [address] Abbi Choudhary M.D. [id number] Glucose [Mass/Vol] 469 mg/dL Off scale [address] Comment on above: Order Comment: Criti marquita result acted upon time of test. Test performed at bedside. Performed By: #### 4 6932 ####[facility] [address] [place], [place] [address] Abbi Choudhary M.D. [id number] POC GLUCOSE > Off scale [address] Comment on above: Order Comment: Criti marquita result acted upon time of test. Test performed at bedside. Performed By: #### 4 6932 ####[facility] [address] [place], [place] [address] Abbi Choudhary M.D. [id number] REFLEX LACTIC ACID, PLASMAon 03-25-2024 LACTIC ACID, PLASMA 1.2 mmol/L Normal 0.6-2.0 [facility] Comment on above: Performed By: #### L [id number] ####[facility] [address] [place], [place] [address] Abbi Choudhary M.D. [id number] LACTIC ACID, PLASMA 2.2 mmol/L High 0.6-2.0 [facility] Comment on above: Performed By: #### L [id number] ####[facility] [address] [place], [place] [address] Abbi Choudhary M.D. [id number] Reflex Lactic Acid, Plasmaon 03-25-2024 Interpretation and review of laboratory results Normal [facility] Lactate [Moles/Vol] 1.2 mmol/L 0.6 - 2. 0 mmol/L [facility] Interpretation and review of laboratory results Abnormal [facility] Lactate [Moles/Vol] 2.2 mmol/L High 0.6 - 2. 0 mmol/L [facility] URINALYSISon 03-25-2024 BACTERIA, URINE Rare Abnormal None Seen [facility] Comment on above: Order Comment: Micro scopic examination is performed on all urinalysis samples and only positive findings are reported. The test for blood on the chemical analytic portion of urinalysis may also be positive due to hemoglobinuria and myoglobinuria and if red blood cells are present they are quantified by microscopic examination. Performed By: #### 4 6625 ####[facility] [address] [place], [place] [address] Abbi Choudhary M.D. [id number] BILIRUBIN, URINE Negative Normal Negative [facility] Comment on above: Order Comment: Micro scopic examination is performed on all urinalysis samples and only positive findings are reported. The test for blood on the chemical analytic portion of urinalysis may also be positive due to hemoglobinuria and myoglobinuria and if red blood cells are present they are quantified by microscopic examination. Performed By: #### 4 6625 ####[facility] [address] [place], [place] [address] Abbi Choudhary M.D. [id number] BLOOD, URINE Moderate Abnormal Negative [facility] Comment on above: Order Comment: Micro scopic examination is performed on all urinalysis samples and only positive findings are reported. The test for blood on the chemical analytic portion of urinalysis may also be positive due to hemoglobinuria and myoglobinuria and if red blood cells are present they are quantified by microscopic examination. Performed By: #### 4 6625 ####[facility] [address] [place] [address] Abbi Choudhary M.D. [id number] Clarity (U) Clear Normal Clear [facility] Comment on above: Order Comment: Micro scopic examination is performed on all urinalysis samples and only positive findings are reported. The test for blood on the chemical analytic portion of urinalysis may also be positive due to hemoglobinuria and myoglobinuria and if red blood cells are present they are quantified by microscopic examination. Performed By: #### 4 6625 ####[facility] [address] [place] [address] Abbi Choudhary M.D. [id number] Color (U) Yellow Normal Colorless, Yellow [facility] Comment on above: Order Comment: Micro scopic examination is performed on all urinalysis samples and only positive findings are reported. The test for blood on the chemical analytic portion of urinalysis may also be positive due to hemoglobinuria and myoglobinuria and if red blood cells are present they are quantified by microscopic examination. Performed By: #### 4 6625 ####[facility] [address] [place], [place] [address] Abbi Choudhary M.D. [id number] Glucose Ql (U) >=500 Abnormal Negative [facility] Comment on above: Order Comment: Micro scopic examination is performed on all urinalysis samples and only positive findings are reported. The test for blood on the chemical analytic portion of urinalysis may also be positive due to hemoglobinuria and myoglobinuria and if red blood cells are present they are quantified by microscopic examination. Performed By: #### 4 6625 ####[facility] [address] [place] [address] Abbi Choudhary M.D. [id number] Ketones Ql (U) Negative Normal Negative [facility] Comment on above: Order Comment: Micro scopic examination is performed on all urinalysis samples and only positive findings are reported. The test for blood on the chemical analytic portion of urinalysis may also be positive due to hemoglobinuria and myoglobinuria and if red blood cells are present they are quantified by microscopic examination. Performed By: #### 4 6625 ####[facility] [address] [place], [place] [address] Abbi Choudhary M.D. [id number] Leukocyte esterase Test strip Ql (U) Negative Normal Negative [facility] Comment on above: Order Comment: Micro scopic examination is performed on all urinalysis samples and only positive findings are reported. The test for blood on the chemical analytic portion of urinalysis may also be positive due to hemoglobinuria and myoglobinuria and if red blood cells are present they are quantified by microscopic examination. Performed By: #### 4 [id number] ####[facility] [address] [place] [address] Abbi Choudhary M.D. [id number] MUCUS, URINE Rare Normal None Seen, Rare [facility] Comment on above: Order Comment: Micro scopic examination is performed on all urinalysis samples and only positive findings are reported. The test for blood on the chemical analytic portion of urinalysis may also be positive due to hemoglobinuria and myoglobinuria and if red blood cells are present they are quantified by microscopic examination. Performed By: #### 4 [id number] ####[facility] [address] [place], [place] [address] Abbi Choudhary M.D. [id number] NITRITE, URINE Negative Normal Negative [facility] Comment on above: Order Comment: Micro scopic examination is performed on all urinalysis samples and only positive findings are reported. The test for blood on the chemical analytic portion of urinalysis may also be positive due to hemoglobinuria and myoglobinuria and if red blood cells are present they are quantified by microscopic examination. Performed By: #### 4 [id number] ####[facility] [address] [place], [place] [address] Abbi Choudhary M.D. [id number] pH (U) 5.0 [pH] Normal 5.0-7.0 [facility] Comment on above: Order Comment: Micro scopic examination is performed on all urinalysis samples and only positive findings are reported. The test for blood on the chemical analytic portion of urinalysis may also be positive due to hemoglobinuria and myoglobinuria and if red blood cells are present they are quantified by microscopic examination. Performed By: #### 4 [id number] ####[facility] [address] [place] [address] Abbi Choudhary M.D. [id number] Protein (U) [Mass/Vol] 100 mg/dL Abnormal Negative [facility] Comment on above: Order Comment: Micro scopic examination is performed on all urinalysis samples and only positive findings are reported. The test for blood on the chemical analytic portion of urinalysis may also be positive due to hemoglobinuria and myoglobinuria and if red blood cells are present they are quantified by microscopic examination. Performed By: #### 4 [id number] ####[facility] [address] [place] [address] Abbi Choudhary M.D. [id number] RBC LM.HPF (Urine sed) [#/Area] 2 /[HPF] Normal 0-3 [facility] Comment on above: Order Comment: Micro scopic examination is performed on all urinalysis samples and only positive findings are reported. The test for blood on the chemical analytic portion of urinalysis may also be positive due to hemoglobinuria and myoglobinuria and if red blood cells are present they are quantified by microscopic examination. Performed By: #### 4 [id number] ####[facility] [address] [place] [address] Abbi Choudhary M.D. [id number] Specific gravity (U) [Rel density] 1.021 Normal 1.005-1.025 [facility] Comment on above: Order Comment: Micro scopic examination is performed on all urinalysis samples and only positive findings are reported. The test for blood on the chemical analytic portion of urinalysis may also be positive due to hemoglobinuria and myoglobinuria and if red blood cells are present they are quantified by microscopic examination. Performed By: #### 4 [id number] ####[facility] [address] [place] [address] Abbi Choudhary M.D. [id number] SQUAMOUS EPITHELIAL 2 /hpf Normal 0-4 [facility] Comment on above: Order Comment: Micro scopic examination is performed on all urinalysis samples and only positive findings are reported. The test for blood on the chemical analytic portion of urinalysis may also be positive due to hemoglobinuria and myoglobinuria and if red blood cells are present they are quantified by microscopic examination. Performed By: #### 4 [id number] ####[facility] [address] [place], [place] [address] Abbi Choudhary M.D. [id number] UROBILINOGEN, URINE <2.0 Normal <2.0 [facility] Comment on above: Order Comment: Micro scopic examination is performed on all urinalysis samples and only positive findings are reported. The test for blood on the chemical analytic portion of urinalysis may also be positive due to hemoglobinuria and myoglobinuria and if red blood cells are present they are quantified by microscopic examination. Performed By: #### 4 [id number] ####[facility] [address] [address] Abbi Choudhary M.D. [id number] WBC LM.HPF (Urine sed) [#/Area] 5 /[HPF] Normal 0-5 [facility] Comment on above: Order Comment: Micro scopic examination is performed on all urinalysis samples and only positive findings are reported. The test for blood on the chemical analytic portion of urinalysis may also be positive due to hemoglobinuria and myoglobinuria and if red blood cells are present they are quantified by microscopic examination. Performed By: #### 4 [id number] ####[facility] [address] [place], [place] [address] Abbi Choudhary M.D. [id number] URINE AEROBIC CULTUREon URINE AEROBIC CULTURE Abnormal [facility] Comment on above: Performed By: #### 4 [id number] ####[facility] [place], [place] [address] Swapnil Brewer M.D. [id number] UrinalysisOrdered By: Navneet Parr on 03-25-2024 Bacteria Auto Ql (U) Rare Abnormal None Se en /hpf [facility] Bilirubin Ql (U) Negative Negative [facility] Refract[facility] automated (U) Clear Clear [facility] Color (U) Yellow Colorless, Yellow [facility] Epithelial cells.squamous Auto (Urine sed) [#/Area] 2 [facility] Glucose Auto test strip (U) [Mass/Vol] >=500 Abnormal Negative mg/dL [facility] Hemoglobin Auto test strip Ql (U) Moderate Abnormal Negative [facility] Interpretation and review of laboratory results Abnormal [facility] Ketones (U) [Mass/Vol] Negative Negative mg/dL [facility] Leukocyte esterase Auto test strip Ql (U) Negative Negative [facility] Mucus Auto (Urine sed) [#/Area] Rare None Seen, Rare /lpf [facility] Nitrite Auto test strip Ql (U) Negative Negative [facility] pH (U) 5 [pH] 5.0 - 7.0 [facility] Protein (U) [Mass/Vol] 100 mg/dL Abnormal Negative [facility] RBC Auto (Urine sed) [#/Area] 2 [facility] Specific gravity (U) [Rel density] 1.021 1.005 - 1.025 [facility] Urobilinogen (U) [Mass/Vol] mg/dL NINF - 2.0 mg/dL [facility] WBC Auto (Urine sed) [#/Area] 5 [facility] WOUND AEROBIC AND ANAEROBIC CULTUREon 03-25-2024 WOUND AEROBIC AND ANAEROBIC CULTURE CULTURE No Growth after 5 days GRAM STAIN RESULT Few WBC Many RBC No Organisms Seen Normal [facility] Comment on above: Performed By: #### 4 [id number] ####[facility] [address] [place] [address] Swapnil Brewer M.D. [id number] WOUND AEROBIC AND ANAEROBIC CULTURE Abnormal [facility] Comment on above: Performed By: #### 4 [id number] ####[facility] [address] [place] [address] Swapnil Brewer M.D. [id number] BASIC METABOLIC PANELon 02-24 Anion gap [Moles/Vol] 20 mmol/L Normal - [facility] Comment on above: Order Comment: [facility] has implemented the eGFR calculation approach that does not have a coefficient for race that conforms to the NKF-ASN Task Force Recommendations. Performed By: #### 4 6124 ####[facility] [address] [address] Abbi Choudhary M.D. [id number] Calcium [Mass/Vol] 9.3 mg/dL Normal 8.4-10.2 [facility] Comment on above: Order Comment: [facility] has implemented the eGFR calculation approach that does not have a coefficient for race that conforms to the NKF-ASN Task Force Recommendations. Performed By: #### 4 6124 ####[facility] [address] [place], [place] [address] Abbi Choudhary M.D. [id number] Chloride [Moles/Vol] 97 mmol/L Low 98-108 [facility] Comment on above: Order Comment: [facility] has implemented the eGFR calculation approach that does not have a coefficient for race that conforms to the NKF-ASN Task Force Recommendations. Performed By: #### 4 6124 ####[facility] [address] [place], [place] [address] Abbi Choudhary M.D. [id number] Creatinine [Mass/Vol] 1.44 mg/dL High 0.40-1.10 [facility] Comment on above: Order Comment: [facility] has implemented the eGFR calculation approach that does not have a coefficient for race that conforms to the NKF-ASN Task Force Recommendations. Performed By: #### 4 6124 ####[facility] [address] [place], [place] [address] Abbi Choudhary M.D. [id number] EGFR 46 mL/min/1.73 m2 Low >=60 [facility] Comment on above: Order Comment: [facility] has implemented the eGFR calculation approach that does not have a coefficient for race that conforms to the NKF-ASN Task Force Recommendations. Result Comment: Lorie mated GFR was calculated using the 2020 CKD-EPI creatinine equation. Performed By: #### 4 [id number] ####[facility] [address] [place], [place] [address] Abbi Choudhary M.D. [id number] Glucose [Mass/Vol] 646 mg/dL Off scale high 65-99 [facility] Comment on above: Order Comment: [facility] has implemented the eGFR calculation approach that does not have a coefficient for race that conforms to the NKF-ASN Task Force Recommendations. Performed By: #### 4 6124 ####[facility] [address] [place], [place] [address] Abbi Choudhary M.D. [id number] HCO3 (Bld) [Moles/Vol] 22 mmol/L Normal 21-32 [facility] Comment on above: Order Comment: [facility] has implemented the eGFR calculation approach that does not have a coefficient for race that conforms to the NKF-ASN Task Force Recommendations. Performed By: #### 4 6124 ####[facility] [address] [place], [place] [address] Abbi Choudhary M.D. [id number] Potassium [Moles/Vol] 4.6 mmol/L Normal 3.5-5.1 [facility] Comment on above: Order Comment: [facility] has implemented the eGFR calculation approach that does not have a coefficient for race that conforms to the NKF-ASN Task Force Recommendations. Performed By: #### 4 [id number] ####[facility] [address] [place], [place] [address] Abbi Choudhary M.D. [id number] Sodium [Moles/Vol] 134 mmol/L Low 135-145 [facility] Comment on above: Order Comment: [facility] has implemented the eGFR calculation approach that does not have a coefficient for race that conforms to the NKF-ASN Task Force Recommendations. Performed By: #### 4 6124 ####[facility] [address] [place], [place] [address] Abbi Choudhary M.D. [id number] Urea nitrogen [Mass/Vol] 24 mg/dL Normal 8-25 [facility] Comment on above: Order Comment: [facility] has implemented the eGFR calculation approach that does not have a coefficient for race that conforms to the NKF-ASN Task Force Recommendations. Performed By: #### 4 6124 ####[facility] [address] [place], [place] [address] Abbi Choudhary M.D. [id number] Urea nitrogen/Creatinine [Mass ratio] 16.7 mg/mg Normal 10.0-20.0 [facility] Comment on above: Order Comment: [facility] has implemented the eGFR calculation approach that does not have a coefficient for race that conforms to the NKF-ASN Task Force Recommendations. Performed By: #### 4 [id number] ####[facility] [address] [place] [address] Abbi Choudhary M.D. [id number] [facility] BASE EXCESS, VENOUS -3.8 Low -2.0-2.0 [facility] Comment on above: Performed By: #### 4 [id number] ####[facility] [address] [address] Abbi Choudhary M.D. [id number] HCO3 (Bld) [Moles/Vol] 22.3 mmol/L Low 24.0-28.0 [facility] Comment on above: Performed By: #### 4 [id number] ####[facility] [address] [address] Abbi Choudhary M.D. [id number] Hematocrit (Bld) [Volume fraction] 40.0 % Normal 36.0-46.0 [facility] Comment on above: Performed By: #### 4 [id number] ####[facility] [address] [address] Abbi Choudhary M.D. [id number] Hemoglobin (Bld) [Mass/Vol] 13.0 g/dL Normal 12.0-16.0 [facility] Comment on above: Performed By: #### 4 [id number] ####[facility] [address] [address] Abbi Choudhary M.D. [id number] Oxygen saturation in Blood 69.9 % Normal 40.0-70.0 [facility] Comment on above: Performed By: #### 4 [id number] ####[facility] [address] [address] Abbi Choudhary M.D. [id number] PCO2 VENOUS 47.4 mm Hg Normal 41.0-51.0 [facility] Comment on above: Performed By: #### 4 [id number] ####[facility] [address] [place] [id number] Abbi Choudhary M.D. [id number] PH VENOUS 7.30 Low 7.32-7.42 [facility] Comment on above: Performed By: #### 4 [id number] ####[facility] [address] [place], [place] [address] Abbi Choudhary M.D. [id number] PO2 VENOUS 41 mm Hg High 25-40 [facility] Comment on above: Performed By: #### 4 [id number] ####[facility] [address] [place], [place] [address] Abbi Choudhary M.D. [id number] Basic metabolic 2000 panelOr dered By: Kendra Bae on 03-24-2024 Anion gap [Moles/Vol] 20 mmol/L 10 - 2 0 mmol/L [facility] Calcium [Mass/Vol] 9.3 mg/dL 8.4 - 10. 2 mg/dL [facility] Chloride [Moles/Vol] 97 mmol/L Low 98 - 10 8 mmol/L [facility] Creatinine [Mass/Vol] 1.44 mg/dL High 0.40 - 1.10 mg/dL [facility] GFR/1.73 sq M.predicted CKD-EPI (S/P/Bld) [Vol rate/Area] 46 Low - PINF [facility] Glucose [Mass/Vol] 646 mg/dL Critically high 65 - 9 9 mg/dL [facility] HCO3 [Moles/Vol] 22 mmol/L 21 - 32 mmol/L [facility] Interpretation and review of laboratory results Abnormal [facility] Potassium [Moles/Vol] 4.6 mmol/L 3.5 - 5.1 mmol/L [facility] Sodium [Moles/Vol] 134 mmol/L Low 135 - 145 mmol/L [facility] Urea nitrogen [Mass/Vol] 24 mg/dL 8 - 25 mg/dL [facility] Urea nitrogen/Creatinine [Mass ratio] 16.7 mg/mg 10.0 - 20.0 [facility] CBC Auto Differentialon 02-24 Basophils (Bld) [#/Vol] 0.06 10*3/uL [facility] Basophils/100 WBC (Bld) 0.6 % [facility] Eosinophils (Bld) [#/Vol] 0.33 10*3/uL [facility] Eosinophils/100 WBC (Bld) 3.5 % [facility] Erythrocyte distribution width (RBC) [Entitic vol] 13 % 11.6 - 14.8 % [facility] Hematocrit (Bld) [Volume fraction] 37.6 % 36.0 - 46.0 % [facility] Hemoglobin (Bld) [Mass/Vol] 12.5 g/dL 12.0 - 16.0 g/dL [facility] Immature granulocytes (Bld) [#/Vol] 0.05 10*3/uL [facility] Immature granulocytes/100 WBC (Bld) 0.5 % [facility] Interpretation and review of laboratory results Abnormal [facility] Lymphocytes (Bld) [#/Vol] 1.34 10*3/uL [facility] Lymphocytes/100 WBC (Bld) 14 % [facility] MCH (RBC) [Entitic mass] 30.3 pg 26.0 - 34.0 pg [facility] MCHC (RBC) [Mass/Vol] 33.2 g/dL 31.0 - 37.0 g/dL [facility] MCV (RBC) [Entitic vol] 91 fL 80.0 - 100.0 fL [facility] Monocytes (Bld) [#/Vol] 0.43 10*3/uL [facility] Monocytes/100 WBC (Bld) 4.5 % [facility] Neutrophils (Bld) [#/Vol] 7.35 10*3/uL High [facility] Neutrophils/100 WBC (Bld) 76.9 % [facility] Nucleated RBC (Bld) [#/Vol] 0 10*3/uL [facility] Nucleated RBC/100 WBC (Bld) [Ratio] 0 % [facility] Platelet mean volume (Bld) [Entitic vol] 9.4 fL 9.4 - 12.4 fL [facility] Platelets (Bld) [#/Vol] 371 10*3/uL [facility] RBC (Bld) [#/Vol] 4.13 10*6/uL [facility] WBC (Bld) [#/Vol] 9.56 10*3/uL [facility] CBC WITH AUTO DIFFERENTIALon 03-24-2024 AUTO NRBC 0.0 % Normal [facility] Comment on above: Performed By: #### L [id number] ####[facility] [address] [place] [address] Abbi Choudhary M.D. [id number] AUTO NRBC ABS COUNT 0.00 K/mcL Normal 0.00-0.00 [facility] Comment on above: Performed By: #### L [id number] ####[facility] [address] [place], [place] [address] Abbi Choudhary M.D. [id number] BASOPHILS ABSOLUTE COUNT 0.06 K/mcL Normal 0.00-0.30 [facility] Comment on above: Performed By: #### L [id number] ####[facility] [address] [place] [address] Abbi Choudhary M.D. [id number] Basophils/100 WBC (Bld) 0.6 % Normal [facility] Comment on above: Performed By: #### L [id number] ####[facility] [address] [place] [address] Abbi Choudhary M.D. [id number] Eosinophils (Bld) [#/Vol] 0.33 10*3/uL Normal 0.00-0.50 [facility] Comment on above: Performed By: #### L [id number] ####[facility] [address] [place] [address] Abbi Choudhary M.D. [id number] Eosinophils/100 WBC (Bld) 3.5 % Normal [facility] Comment on above: Performed By: #### L [id number] ####[facility] [address] [place] [address] Abbi Choudhary M.D. [id number] Erythrocyte distribution width (RBC) [Ratio] 13.0 % Normal 11.6-14.8 [facility] Comment on above: Performed By: #### L [id number] ####[facility] [address] [place] [address] Abbi Choudhary M.D. [id number] Hematocrit (Bld) [Volume fraction] 37.6 % Normal 36.0-46.0 [facility] Comment on above: Performed By: #### L [id number] ####[facility] [address] [place] [address] Abbi Choudhary M.D. [id number] Hemoglobin (Bld) [Mass/Vol] 12.5 g/dL Normal 12.0-16.0 [facility] Comment on above: Performed By: #### L [id number] ####[facility] [address] [place] [address] Abbi Choudhary M.D. [id number] IG ABSOLUTE 0.05 K/mcL Normal 0.00-0.30 [facility] Comment on above: Performed By: #### L [id number] ####[facility] [address] [place] [address] Abbi Choudhary M.D. [id number] IG PERCENT 0.50 % Normal [facility] Comment on above: Result Comment: The IG parameter is the percentage of metamyelocytes, myelocytes and promyelocytes. An immature granulocyte count (IG) of 1% or more suggests the possibility of infection, an IG count of 3% is very likely related to an infection. Performed By: #### L [id number] ####[facility] [address] [place] [address] Abbi Choudhary M.D. [id number] Lymphocytes (Bld) [#/Vol] 1.34 10*3/uL Normal 0.90-4.00 [facility] Comment on above: Performed By: #### L [id number] ####[facility] [address] [place] [address] Abbi Choudhary M.D. [id number] Lymphocytes/100 WBC (Bld) 14.0 % Normal [facility] Comment on above: Performed By: #### L [id number] ####[facility] [address] [place] [address] Abbi Choudhary M.D. [id number] MCH (RBC) [Entitic mass] 30.3 pg Normal 26.0-34.0 [facility] Comment on above: Performed By: #### L [id number] ####[facility] [address] [place] [address] Abbi Choudhary M.D. [id number] MCV (RBC) [Entitic vol] 91.0 fL Normal 80.0-100.0 [facility] Comment on above: Performed By: #### L [id number] ####[facility] [address] [place] [address] Abbi Choudhary M.D. [id number] MEAN CORPUSCULAR HEMOGLOBIN CONC 33.2 g/dL Normal 31.0-37.0 [facility] Comment on above: Performed By: #### L [id number] ####[facility] [address] [place] [address] Abbi Choudhary M.D. [id number] Monocytes (Bld) [#/Vol] 0.43 10*3/uL Normal 0.30-0.90 [facility] Comment on above: Performed By: #### L [id number] ####[facility] [address] [place] [address] Abbi Choudhary M.D. [id number] Monocytes/100 WBC (Bld) 4.5 % Normal [facility] Comment on above: Performed By: #### L [id number] ####[facility] [address] [place] [place] [address]Alisia Choudhary M.D. [id number] NEUTROPHILS ABSOLUTE COUNT 7.35 K/mcL High 1.70-7.00 [facility] Comment on above: Performed By: #### L [id number] ####[facility] [address] [place] [address] Abbi Choudhary M.D. [id number] Neutrophils/100 WBC (Bld) 76.9 % Normal [facility] Comment on above: Performed By: #### L [id number] ####[facility] [address] [place] [address] Abbi Choudhary M.D. [id number] Platelet mean volume (Bld) [Entitic vol] 9.4 fL Normal 9.4-12.4 [facility] Comment on above: Performed By: #### L [id number] ####[facility] [address] [place] [address] Abbi Choudhary M.D. [id number] Platelets (Bld) [#/Vol] 371 10*3/uL Normal 150-400 [facility] Comment on above: Performed By: #### L [id number] ####[facility] [address] [place], [place] [address] Abbi Choudhary M.D. [id number] RBC (Bld) [#/Vol] 4.13 10*6/uL Normal 4.00-5.20 [facility] Comment on above: Performed By: #### L [id number] ####[facility] [address] [place], [place] [address] Abbi Choudhary M.D. [id number] WBC (Bld) [#/Vol] 9.56 10*3/uL Normal 4.50-11.00 [facility] Comment on above: Performed By: #### L [id number] ####[facility] [address] [place], [place] [address] Abbi Choudhary M.D. [id number] CRP [Mass/Vol]on 03-24-2024 Interpretation and review of laboratory results Abnormal [facility] CRP, INFLAMMATIONon 03-24-20 CRP [Mass/Vol] 15.1 mg/L High 0.0-10.0 [facility] Comment on above: Performed By: #### 4 5334 ####[facility] [address] [place], [place] [address] Abbi Choudhary M.D. [id number] CRP, Inflammationon 03-24-20 CRP [Mass/Vol] 15.1 mg/L High 0.0 - 10.0 mg/L [facility] ED Prov Noteon 03-24-2024 ED Prov Note Normal [facility] ESR Westergren method (Bld) [Velocity]on 03-24-2024 ESR (Bld) [Velocity] 62 mm/h High [facility] Interpretation and review of laboratory results Abnormal [facility] Gas panel (BldV)on Base excess Calc (BldV) [Moles/Vol] -3.8000 mmol/L Low -2.0 - 2.0 [facility] CO2 (BldV) [Partial pressure] 47.4 mm[Hg] [facility] HCO3 (Bld) [Moles/Vol] 22.3 mmol/L Low 24.0 - 28.0 mmol/L [facility] Hematocrit (BldA) [Volume fraction] 40 % 36.0 - 46.0 % [facility] Hemoglobin (Bld) [Mass/Vol] 13 g/dL 12.0 - 16.0 g/dL [facility] Interpretation and review of laboratory results Abnormal [facility] Oxygen (BldV) [Partial pressure] 41 mm[Hg] High [facility] Oxygen saturation in Venous blood 69.9 % 40.0 - 70.0 % [facility] pH (BldV) 7.3 [pH] Low 7.32 - 7.42 [facility] HEPATIC FUNCTION PANELon Albumin [Mass/Vol] 4.2 g/dL Normal 3.2-5.2 [facility] Comment on above: Performed By: #### 4 [id number] ####[facility] [address] [place] [address] Abbi Choudhary M.D. [id number] ALP [Catalytic activity/Vol] 139 U/L Normal 40-150 [facility] Comment on above: Performed By: #### 4 [id number] ####[facility] [address] [place] [address] Abbi Choudhary M.D. [id number] ALT [Catalytic activity/Vol] 16 U/L Normal 0-35 U/L [facility] Comment on above: Performed By: #### 4 [id number] ####[facility] [address] [address] Abbi Choudhary M.D. [id number] AST [Catalytic activity/Vol] 16 U/L Normal 0-35 U/L [facility] Comment on above: Performed By: #### 4 5866 ####[facility] [address] [address] Abbi Choudhary M.D. [id number] Bilirubin [Mass/Vol] 0.5 mg/dL Normal 0.0-1.3 [facility] Comment on above: Performed By: #### 4 5866 ####[facility] [address] [address] Abbi Choudhary M.D. [id number] BILIRUBIN, DIRECT < Normal 0.0-0.4 [facility] Comment on above: Performed By: #### 4 5866 ####[facility] [address] [place], [place] [address] Abbi Choudhary M.D. [id number] Protein [Mass/Vol] 8.1 g/dL High 6.0-8.0 [facility] Comment on above: Performed By: #### 4 [id number] ####[facility] [address] [place], [place] [address] Abbi Choudhary M.D. [id number] Hepatic function 2000 panelo n 03-24-2024 Albumin [Mass/Vol] 4.2 g/dL 3.2 - 5.2 g/dL [facility] ALP [Catalytic activity/Vol] 139 U/L 40 - 150 U/L [facility] ALT [Catalytic activity/Vol] 16 U/L 0-35 U/L [facility] AST [Catalytic activity/Vol] 16 U/L 0-35 U/L [facility] Bilirubin [Mass/Vol] 0.5 mg/dL 0.0 - 1 .3 mg/dL [facility] Bilirubin.conjugated [Mass/Vol] mg/dL 0.0 - 0.4 mg/dL [facility] Interpretation and review of laboratory results Abnormal [facility] Protein [Mass/Vol] 8.1 g/dL High 6.0 - 8.0 g/dL [facility] LACTIC ACID, WHOLE BLOODon 1 LACTIC ACID, WHOLE BLOOD 3.0 mmol/L High 0.6-2.0 [facility] Comment on above: Performed By: #### 1 1929 ####[facility] [address] [place], [place] [address] Abbi Choudhary M.D. [id number] Lactate (Bld) [Moles/Vol]on 03-24-2024 Interpretation and review of laboratory results Abnormal [facility] Lactate [Moles/Vol] 3 mmol/L High 0.6 - 2. 0 mmol/L [facility] Light Blue Topon 03-24-2024 Extra Tube Hold for add-ons. [place] No Panel Informationon 03-24 [facility] SEDIMENTATION RATEon 024 SEDIMENTATION RATE, ERYTHROCYTE 62 mm/hr High 0-20 [facility] Comment on above: Performed By: #### 4 6477 ####[facility] [address] [place], [place] [address] Abbi Chouhdary M.D. [id number] TROPONINon 03-24-2024 BASELINE TROPONIN T NG/L 22 ng/L Off scale high <=14 [facility] Comment on above: Performed By: #### 4 6608 ####[facility] [address] [place], [place] [address] Abbi Choudhary M.D. [id number] TROPONIN T INTERPRETATION Possible acute cardiac injury. Normal [facility] Comment on above: Performed By: #### 4 6608 ####[facility] [address] [place], [place] [address] Abbi Choudhary M.D. [id number] Troponinon 03-24-2024 Interpretation and review of laboratory results Abnormal [facility] Troponin T 22 ng/L Critically high NINF - 14 ng/L [facility] Troponin T Interpretation Possible acute cardiac injury. [facility] XR Finger - left 2 Viewson 1 GE RIS GE RIS [facility] Radiology Study observation (narrative) [facility] XR Finger - left 2 ViewsOrde red By: Mayco Cortez on 03-24-2024 [facility] Work Phone: XR TOE(S) LEFT 2+ VIEWSon XR TOE(S) LEFT 2+ VIEWS Normal [facility] Comment on above: Order Comment: Injur y/Trauma or Illness?:Illness/OtherHow long have you had these symptoms (acute/chronic)?:AcuteReason for exam?:pain/ reoccuring infectionHistory of cancer?:uSurgeries, chemotherapy, or radiation?:pacemakerType of Exam?:InitialAdditional signs and symptoms?:pain/infection HEMOGLOBIN A1con 03-23-2024 HEMOGLOBIN A1c 9.9 % of total Hgb High <5.7 [facility] Comment on above: Result Comment: For someone without known diabetes, a hemoglobin A1c value of 6.5% or greater indicates that they may have diabetes and this should be confirmed with a follow-up test. For someone with known diabetes, a value <7% indicates that their diabetes is well controlled and a value greater than or equal to 7% indicates suboptimal control. A1c targets should be individualized based on duration of diabetes, age, comorbid conditions, and other considerations. Currently, no consensus exists regarding use of hemoglobin A1c for diagnosis of diabetes for children. Performed By: #### 4 96, [address]4584 #### [facility] [place] [address] [facility], [address] [place], [place] [id number] Credit Relationship Manager: Dean Maddox MD VITAMIN D,25-OH,TOTAL,IAon 1 VITAMIN D,25-OH,TOTAL,IA 11 ng/mL Low 30-100 [facility] Comment on above: Result Comment: Kassy min D Status 25-OH Vitamin D: Deficiency: <20 ng/mL Insufficiency: 20 - 29 ng/mL Optimal: > or = 30 ng/mL For 25-OH Vitamin D testing on patients on D2-supplementation and patients for whom quantitation of D2 and D3 fractions is required, the QuestAssureD(TM) 25-OH VIT D, (D2,D3), LC/MS/MS is recommended: order code 15249 (patients >2yrs). See Note 1 Note 1 For additional information, please refer to http://education.ConXtech/faq/SLM432 (This link is being provided for informational/ educational purposes only.) Performed By: #### 4 96, [address] #### [facility] [address], [address] [place], [place] [id number] Credit Relationship Manager: Dean Maddox MD B12/FOLATEon 02-11-2024 Cobalamin (Vitamin B12) [Mass/Vol] 203 pg/mL Low 232-1245 [facility] Comment on above: Performed By: #### 4 6967 ####[facility] [address] [place], [place] [address] Abbi Choudhary M.D. [id number] FOLATE 9.1 ng/mL Normal 3.1-17.5 [facility] Comment on above: Result Comment: Defi cient <2.2Borderline 2.2 - 3.0Excessive >17.5 Performed By: #### 4 6967 ####[facility] [address] [place], [place] [address] Abbi Choudhary M.D. [id number] B12/Folateon 02-11-2024 Cobalamin (Vitamin B12) [Mass/Vol] 203 pg/mL Low 232 - 1245 pg/mL [facility] Folate [Mass/Vol] 9.1 ng/mL 3.1 - 17.5 ng/mL [facility] Comment on above: Deficient <2.2 Borderline 2.2 - 3.0 Excessive >17.5 Interpretation and review of laboratory results Abnormal [facility] HEPATIC FUNCTION PANELon Albumin [Mass/Vol] 4.0 g/dL Normal 3.2-5.2 [facility] Comment on above: Performed By: #### 4 5866 ####[facility] [address] [place], [place] [address] Abbi Choudhary M.D. [id number] ALP [Catalytic activity/Vol] 139 U/L Normal 40-150 [facility] Comment on above: Performed By: #### 4 5866 ####[facility] [address] [place], [place] [address] Abbi Choudhary M.D. [id number] ALT [Catalytic activity/Vol] 13 U/L Normal 0-35 U/L [facility] Comment on above: Performed By: #### 4 5866 ####[facility] [address] [place], [place] [address] Abbi Choudhary M.D. [id number] AST [Catalytic activity/Vol] 17 U/L Normal 0-35 U/L [facility] Comment on above: Result Comment: Slig htly Hemolyzed Performed By: #### 4 5866 ####[facility] [address] [place], [place] [address] Abbi Choudhary M.D. [id number] Bilirubin [Mass/Vol] 0.4 mg/dL Normal 0.0-1.3 [facility] Comment on above: Performed By: #### 4 5866 ####[facility] [address] [place], [place] [address] Abbi Choudhary M.D. [id number] BILIRUBIN, DIRECT < Normal 0.0-0.4 [facility] Comment on above: Performed By: #### 4 5866 ####[facility] [address] [place], [place] [address] Abbi Choudhary M.D. [id number] Protein [Mass/Vol] 7.3 g/dL Normal 6.0-8.0 [facility] Comment on above: Performed By: #### 4 5866 ####[facility] [address] [place], [place] [address] Abbi Choudhary M.D. [id number] Hepatic function 2000 panelO rdered By: Shy Chou on 02-11-2024 Albumin [Mass/Vol] 4.0 g/dL 3.2 - 5.2 g/dL [facility] ALP [Catalytic activity/Vol] 139 U/L 40 - 150 U/L [facility] ALT [Catalytic activity/Vol] 13 U/L 0-35 U/L [facility] AST [Catalytic activity/Vol] 17 U/L 0-35 U/L [facility] Comment on above: Slightly Hemolyzed Bilirubin [Mass/Vol] 0.4 mg/dL 0.0 - 1 .3 mg/dL [facility] Bilirubin.conjugated [Mass/Vol] mg/dL 0.0 - 0.4 mg/dL [facility] Interpretation and review of laboratory results Normal [facility] Protein [Mass/Vol] 7.3 g/dL 6.0 - 8.0 g/dL [facility] T4, FREEon 02-11-2024 Free T4 [Mass/Vol] 0.9 ng/dL Normal 0.7-1.7 [facility] Comment on above: Performed By: #### 4 6567 ####[facility] [address] [place], [place] [address] Abbi Choudhary M.D. [id number] TSH WITH REFLEX FREE T4on TSH Qn 4.58 m[IU]/L High 0.27-4.20 [facility] Comment on above: Performed By: #### 4 6612 ####[facility] [address] [place], [place] [address] Abbi Choudhary M.D. [id number] CBCon 01-18-2024 AUTO NRBC 0.0 % Normal [facility] Comment on above: Performed By: #### 4 5218 ####[facility] [address] [place], [place] [address] Abbi Choudhary M.D. [id number] AUTO NRBC ABS COUNT 0.00 K/mcL Normal 0.00-0.00 [facility] Comment on above: Performed By: #### 4 5218 ####[facility] [address] [place], [place] [address] Abbi Choudhary M.D. [id number] Erythrocyte distribution width (RBC) [Ratio] 12.9 % Normal 11.6-14.8 [facility] Comment on above: Performed By: #### 4 [id number] ####[facility] [address] [place], [place] [address] Abbi Choudhary M.D. [id number] Hematocrit (Bld) [Volume fraction] 29.3 % Low 36.0-46.0 [facility] Comment on above: Performed By: #### 4 [id number] ####[facility] [address] [place], [place] [address] Abbi Choudhary M.D. [id number] Hemoglobin (Bld) [Mass/Vol] 9.1 g/dL Low 12.0-16.0 [facility] Comment on above: Performed By: #### 4 [id number] ####[facility] [address] [place], [place] [address] Abbi Choudhary M.D. [id number] MCH (RBC) [Entitic mass] 30.2 pg Normal 26.0-34.0 [facility] Comment on above: Performed By: #### 4 [id number] ####[facility] [address] [place], [place] [address] Abbi Choudhary M.D. [id number] MCV (RBC) [Entitic vol] 97.3 fL Normal 80.0-100.0 [facility] Comment on above: Performed By: #### 4 [id number] ####[facility] [address] [place], [place] [address] Abbi Choudhary M.D. [id number] MEAN CORPUSCULAR HEMOGLOBIN CONC 31.1 g/dL Normal 31.0-37.0 [facility] Comment on above: Performed By: #### 4 [id number] ####[facility] [address] [place], [place] [address] Abbi Choudhary M.D. [id number] Platelet mean volume (Bld) [Entitic vol] 9.1 fL Low 9.4-12.4 [facility] Comment on above: Performed By: #### 4 [id number] ####[facility] [address] [place], [place] [address] Abbi Choudhary M.D. [id number] Platelets (Bld) [#/Vol] 255 10*3/uL Normal 150-400 [facility] Comment on above: Performed By: #### 4 [id number] ####[facility] [address] [place], [place] [address] Abbi Choudhary M.D. [id number] RBC (Bld) [#/Vol] 3.01 10*6/uL Low 4.00-5.20 [facility] Comment on above: Performed By: #### 4 [id number] ####[facility] [address] [place], [place] [address] Abbi Choudhary M.D. [id number] WBC (Bld) [#/Vol] 7.67 10*3/uL Normal 4.50-11.00 [facility] Comment on above: Performed By: #### 4 [id number] ####[facility] [address] [place], [place] [address] Abbi Choudhary M.D. [id number] CBC panel Auto (Bld)on 01-17 Erythrocyte distribution width (RBC) [Entitic vol] 12.9 % 11.6 - 14.8 % [facility] Hematocrit (Bld) [Volume fraction] 29.3 % Low 36.0 - 46.0 % [facility] Hemoglobin (Bld) [Mass/Vol] 9.1 g/dL Low 12.0 - 16.0 g/dL [facility] Interpretation and review of laboratory results Abnormal [facility] MCH (RBC) [Entitic mass] 30.2 pg 26.0 - 34.0 pg [facility] MCHC (RBC) [Mass/Vol] 31.1 g/dL 31.0 - 37.0 g/dL [facility] MCV (RBC) [Entitic vol] 97.3 fL 80.0 - 100.0 fL [facility] Nucleated RBC (Bld) [#/Vol] 0.00 10*3/uL [facility] Nucleated RBC/100 WBC (Bld) [Ratio] 0.0 % [facility] Platelet mean volume (Bld) [Entitic vol] 9.1 fL Low 9.4 - 12.4 fL [facility] Platelets (Bld) [#/Vol] 255 10*3/uL [facility] RBC (Bld) [#/Vol] 3.01 10*6/uL Low [facility] WBC (Bld) [#/Vol] 7.67 10*3/uL [facility] Disch Summon 01-18-2024 Disch Summ Normal [facility] Glucose (Bld) [Mass/Vol]on 0 01-18-2024 Glucose [Mass/Vol] 82 mg/dL 65 - 99 mg/dL [facility] Interpretation and review of laboratory results Normal [facility] Glucose [Mass/Vol] 71 mg/dL 65 - 99 mg/dL [facility] Interpretation and review of laboratory results Normal [facility] Glucose [Mass/Vol] 66 mg/dL 65 - 99 mg/dL [facility] Interpretation and review of laboratory results Normal [facility] POC GLUCOSE - [facility] 024 Glucose [Mass/Vol] 82 mg/dL Normal -[address] [place] [address] Comment on above: Performed By: #### 4 6932 ####[facility] [address] [place], [place] [address] Abbi Choudhary M.D. [id number] Glucose [Mass/Vol] 71 mg/dL Normal [address] [place] [address] Comment on above: Performed By: #### 4 6932 ####[facility] [address] [place], [place] [address] Abbi Choudhary M.D. [id number] Glucose [Mass/Vol] 66 mg/dL Normal [address] [place] [address] Comment on above: Performed By: #### 4 6932 ####[facility] [address] [place], [place] [address] Abbi Choudhary M.D. [id number] [facility] Albumin [Mass/Vol] 3.2 g/dL Normal 3.2-5.2 [facility] Comment on above: Order Comment: [facility] has implemented the eGFR calculation approach that does not have a coefficient for race that conforms to the NKF-ASN Task Force Recommendations. Performed By: #### 4 6449 ####[facility] [address] [place], [place] [address] Abbi Choudhary M.D. [id number] Anion gap [Moles/Vol] 12 mmol/L Normal 10-20 [facility] Comment on above: Order Comment: [facility] has implemented the eGFR calculation approach that does not have a coefficient for race that conforms to the NKF-ASN Task Force Recommendations. Performed By: #### 4 6449 ####[facility] [address] [place], [place] [address] Abbi Choudhary M.D. [id number] Calcium [Mass/Vol] 8.6 mg/dL Normal 8.4-10.2 [facility] Comment on above: Order Comment: [facility] has implemented the eGFR calculation approach that does not have a coefficient for race that conforms to the NKF-ASN Task Force Recommendations. Performed By: #### 4 6449 ####[facility] [address] [place], [place] [address] Abbi Choudhary M.D. [id number] Chloride [Moles/Vol] 112 mmol/L High 98-108 [facility] Comment on above: Order Comment: [facility] has implemented the eGFR calculation approach that does not have a coefficient for race that conforms to the NKF-ASN Task Force Recommendations. Performed By: #### 4 6449 ####[facility] [address] [place], [place] [address] Abbi Choudhary M.D. [id number] Creatinine [Mass/Vol] 1.67 mg/dL High 0.40-1.10 [facility] Comment on above: Order Comment: [facility] has implemented the eGFR calculation approach that does not have a coefficient for race that conforms to the NKF-ASN Task Force Recommendations. Performed By: #### 4 6449 ####[facility] [address] [place], [place] [address] Abbi Choudhary M.D. [id number] EGFR 38 mL/min/1.73 m2 Low >=60 [facility] Comment on above: Order Comment: [facility] has implemented the eGFR calculation approach that does not have a coefficient for race that conforms to the NKF-ASN Task Force Recommendations. Result Comment: Lorie mated GFR was calculated using the 2020 CKD-EPI creatinine equation. Performed By: #### 4 6449 ####[facility] [address] [place], [place] [address] Abbi Choudhary M.D. [id number] Glucose [Mass/Vol] 78 mg/dL Normal 65-99 [facility] Comment on above: Order Comment: [facility] has implemented the eGFR calculation approach that does not have a coefficient for race that conforms to the NKF-ASN Task Force Recommendations. Performed By: #### 4 6449 ####[facility] [address] [place], [place] [address] Abbi Choudhary M.D. [id number] HCO3 (Bld) [Moles/Vol] 24 mmol/L Normal 21-32 [facility] Comment on above: Order Comment: [facility] has implemented the eGFR calculation approach that does not have a coefficient for race that conforms to the NKF-ASN Task Force Recommendations. Performed By: #### 4 6449 ####[facility] [address] [place], [place] [address] Abbi Choudhary M.D. [id number] Phosphate [Mass/Vol] 3.9 mg/dL Normal 2.7-4.5 [facility] Comment on above: Order Comment: [facility] has implemented the eGFR calculation approach that does not have a coefficient for race that conforms to the NKF-ASN Task Force Recommendations. Performed By: #### 4 6449 ####[facility] [address] [place], [place] [address] Abbi Choudhary M.D. [id number] Potassium [Moles/Vol] 4.6 mmol/L Normal 3.5-5.1 [facility] Comment on above: Order Comment: [facility] has implemented the eGFR calculation approach that does not have a coefficient for race that conforms to the NKF-ASN Task Force Recommendations. Performed By: #### 4 6449 ####[facility] [address] [place], [place] [address] Abbi Choudhary M.D. [id number] Sodium [Moles/Vol] 143 mmol/L Normal 135-145 [facility] Comment on above: Order Comment: [facility] has implemented the eGFR calculation approach that does not have a coefficient for race that conforms to the NKF-ASN Task Force Recommendations. Performed By: #### 4 6449 ####[facility] [address] [place], [place] [address] Abbi Choudhary M.D. [id number] Urea nitrogen [Mass/Vol] 34 mg/dL High 8-25 [facility] Comment on above: Order Comment: [facility] has implemented the eGFR calculation approach that does not have a coefficient for race that conforms to the NKF-ASN Task Force Recommendations. Performed By: #### 4 6449 ####[facility] [address] [place], [place] [address] Abbi Choudhary M.D. [id number] Urea nitrogen/Creatinine [Mass ratio] 20.4 mg/mg High 10.0-20.0 [facility] Comment on above: Order Comment: [facility] has implemented the eGFR calculation approach that does not have a coefficient for race that conforms to the NKF-ASN Task Force Recommendations. Performed By: #### 4 6449 #### [facility] [address] [place], [place] [address] Abbi Choudhary M.D. [id number] Renal function [facility] 01-18-2024 Albumin [Mass/Vol] 3.2 g/dL 3.2 - 5.2 g/dL [facility] Anion gap [Moles/Vol] 12 mmol/L 10 - 2 0 mmol/L [facility] Calcium [Mass/Vol] 8.6 mg/dL 8.4 - 10. 2 mg/dL [facility] Chloride [Moles/Vol] 112 mmol/L High 98 - 10 8 mmol/L [facility] Creatinine [Mass/Vol] 1.67 mg/dL High 0.40 - 1.10 mg/dL [facility] GFR/1.73 sq M.predicted CKD-EPI (S/P/Bld) [Vol rate/Area] 38 Low - PINF [facility] Comment on above: Estimated GFR was ca lculated using the 2020 CKD-EPI creatinine equation. Glucose [Mass/Vol] 78 mg/dL 65 - 99 mg/dL [facility] HCO3 [Moles/Vol] 24 mmol/L 21 - 32 mmol/L [facility] Interpretation and review of laboratory results Abnormal [facility] Phosphate [Mass/Vol] 3.9 mg/dL 2.7 - 4 .5 mg/dL [facility] Potassium [Moles/Vol] 4.6 mmol/L 3.5 - 5.1 mmol/L [facility] Sodium [Moles/Vol] 143 mmol/L 135 - 145 mmol/L [facility] Urea nitrogen [Mass/Vol] 34 mg/dL High 8 - 25 mg/dL [facility] Urea nitrogen/Creatinine [Mass ratio] 20.4 mg/mg High 10.0 - 20.0 [facility] has implemented the eGFR calculation approach that does not have a coefficient for race that conforms to the NKF-ASN Task Force Recommendations. [facility] US Kidney - bilateral and Ur inary bladderon 01-18-2024 1. Normal renal ultrasound. 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 Right Kidney: 10.3 x 6.2 x 6.5 cm Left Kidney: 10.8 x 5.8 x 6.3 cm Renal echogenicity and architecture are normal. No collecting system dilatation. No shadowing renal calculi. Urinary bladder underdistended but is normal in contour. No bladder wall thickening. No bladder filling defects. 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 Right Kidney: 10.3 x 6.2 x 6.5 cm Left Kidney: 10.8 x 5.8 x 6.3 cm Renal echogenicity and architecture are normal. No collecting system dilatation. No shadowing renal calculi. Urinary bladder underdistended but is normal in contour. No bladder wall thickening. No bladder filling defects. Bladder volume: 80 mL IMPRESSION: 1. Normal renal ultrasound. VKR/[employer] Workstation ID: [id number] [facility] Kidney - bilateral and Ur inary bladderOrdered By: Anant Bonds on 01-18-2024 [facility] Work Phone: CBCon 01-17-2024 AUTO NRBC 0.0 % Normal [facility] Comment on above: Performed By: #### 4 [id number] ####[facility] [address] [place], [place] [address] Abib Choudhary M.D. [id number] AUTO NRBC ABS COUNT 0.00 K/mcL Normal 0.00-0.00 [facility] Comment on above: Performed By: #### 4 [id number] ####[facility] [address] [place], [place] [address] Abbi Choudhary M.D. [id number] Erythrocyte distribution width (RBC) [Ratio] 13.1 % Normal 11.6-14.8 [facility] Comment on above: Performed By: #### 4 [id number] ####[facility] [address] [place], [place] [address] Abbi Choudhary M.D. [id number] Hematocrit (Bld) [Volume fraction] 28.9 % Low 36.0-46.0 [facility] Comment on above: Performed By: #### 4 [id number] ####[facility] [address] [place], [place] [address] Abbi Choudhary M.D. [id number] Hemoglobin (Bld) [Mass/Vol] 9.3 g/dL Low 12.0-16.0 [facility] Comment on above: Performed By: #### 4 [id number] ####[facility] [address] [place], [place] [address] Abbi Choudhary M.D. [id number] MCH (RBC) [Entitic mass] 30.9 pg Normal 26.0-34.0 [facility] Comment on above: Performed By: #### 4 [id number] ####[facility] [address] [place], [place] [address] Abbi Choudhary M.D. [id number] MCV (RBC) [Entitic vol] 96.0 fL Normal 80.0-100.0 [facility] Comment on above: Performed By: #### 4 [id number] ####[facility] [address] [place], [place] [address] Abbi Choudhary M.D. [id number] MEAN CORPUSCULAR HEMOGLOBIN CONC 32.2 g/dL Normal 31.0-37.0 [facility] Comment on above: Performed By: #### 4 [id number] ####[facility] [address] [place], [place] [address] Abbi Choudhary M.D. [id number] Platelet mean volume (Bld) [Entitic vol] 9.9 fL Normal 9.4-12.4 [facility] Comment on above: Performed By: #### 4 [id number] ####[facility] [address] [place], [place] [address] Abbi Choudhary M.D. [id number] Platelets (Bld) [#/Vol] 259 10*3/uL Normal 150-400 [facility] Comment on above: Performed By: #### 4 [id number] ####[facility] [address] [place], [place] [address] Abbi Choudhary M.D. [id number] RBC (Bld) [#/Vol] 3.01 10*6/uL Low 4.00-5.20 [facility] Comment on above: Performed By: #### 4 [id number] ####[facility] [address] [place], [place] [address] Abbi Choudhary M.D. [id number] WBC (Bld) [#/Vol] 7.74 10*3/uL Normal 4.50-11.00 [facility] Comment on above: Performed By: #### 4 [id number] ####[facility] [address] [place], [place] [address] Abbi Choudhary M.D. [id number] CBC panel Auto (Bld)on 01-16 Erythrocyte distribution width (RBC) [Entitic vol] 13.1 % 11.6 - 14.8 % [facility] Hematocrit (Bld) [Volume fraction] 28.9 % Low 36.0 - 46.0 % [facility] Hemoglobin (Bld) [Mass/Vol] 9.3 g/dL Low 12.0 - 16.0 g/dL [facility] Interpretation and review of laboratory results Abnormal [facility] MCH (RBC) [Entitic mass] 30.9 pg 26.0 - 34.0 pg [facility] MCHC (RBC) [Mass/Vol] 32.2 g/dL 31.0 - 37.0 g/dL [facility] MCV (RBC) [Entitic vol] 96.0 fL 80.0 - 100.0 fL [facility] Nucleated RBC (Bld) [#/Vol] 0.00 10*3/uL [facility] Nucleated RBC/100 WBC (Bld) [Ratio] 0.0 % [facility] Platelet mean volume (Bld) [Entitic vol] 9.9 fL 9.4 - 12.4 fL [facility] Platelets (Bld) [#/Vol] 259 10*3/uL [facility] RBC (Bld) [#/Vol] 3.01 10*6/uL Low [facility] WBC (Bld) [#/Vol] 7.74 10*3/uL [facility] e[facility] CT HEAD WITHOUT CONTRAST (ST [place])on 01-17-2024 CT HEAD WITHOUT CONTRAST (STROKE) Normal [facility] Comment on above: Order Comment: Injur y/Trauma or Illness?:Illness/OtherHow long have you had these symptoms (acute/chronic)?:AcuteReason for exam?:L sided parathesias, change in mentationType of Exam?:InitialAdditional signs and symptoms?:na CT Head WO contraston 2023 Negative for acute hemorrhage or acute intracranial process. 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 Dose reduction techniques were achieved by using automated exposure control and/or adjustment of mA and/or kV according to patient size and/or use of iterative reconstruction technique. FINDINGS: The ventricles and sulci are within normal limits in size and configuration for age. There is no evidence for acute intracranial hemorrhage. There are no foci of abnormal parenchymal attenuation. There is no mass effect or midline shift. There are no abnormal extraaxial fluid collections. 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 Dose reduction techniques were achieved by using automated exposure control and/or adjustment of mA and/or kV according to patient size and/or use of iterative reconstruction technique. FINDINGS: The ventricles and sulci are within normal limits in size and configuration for age. There is no evidence for acute intracranial hemorrhage. There are no foci of abnormal parenchymal attenuation. There is no mass effect or midline shift. There are no abnormal extraaxial fluid collections. IMPRESSION: Negative for acute hemorrhage or acute intracranial process. Workstation ID: [id number] [facility] Radiology Study observation (narrative) [facility] CT Head WO contrastOrdered B y: Elvis Mae on 01-17-2024 [facility] Work Phone: Glucose (Bld) [Mass/Vol]on 0 01-17-2024 Glucose [Mass/Vol] 87 mg/dL 65 - 99 mg/dL [facility] Interpretation and review of laboratory results Normal [facility] Glucose [Mass/Vol] 255 mg/dL High 65 - 99 mg/dL [facility] Interpretation and review of laboratory results Abnormal [facility] Glucose [Mass/Vol] 93 mg/dL 65 - 99 mg/dL [facility] Interpretation and review of laboratory results Normal [facility] Glucose [Mass/Vol] 58 mg/dL Low 65 - 99 mg/dL [facility] Interpretation and review of laboratory results Abnormal [facility] Glucose [Mass/Vol] 86 mg/dL 65 - 99 mg/dL [facility] Interpretation and review of laboratory results Normal [facility] Glucose [Mass/Vol] 87 mg/dL Normal 65-99 [facility] Comment on above: Performed By: #### 4 [id number] ####[facility] [address] [place], [place] [address] Abbi Choudhary M.D. [id number] Glucose [Mass/Vol] 255 mg/dL High 65-99 [facility] Comment on above: Performed By: #### 4 [id number] ####[facility] [address] [place], [place] [address] Abbi Choudhary M.D. [id number] Glucose [Mass/Vol] 93 mg/dL Normal 65-99 [facility] Comment on above: Performed By: #### 4 [id number] ####[facility] [address] [place], [place] [address] Abbi Choudhary M.D. [id number] Glucose [Mass/Vol] 58 mg/dL Low 65-99 [facility] Comment on above: Performed By: #### 4 [id number] ####[facility] [address] [place], [place] [address] Abbi Choudhary M.D. [id number] Glucose [Mass/Vol] 86 mg/dL Normal 65-99 [facility] Comment on above: Performed By: #### 4 [id number] ####[facility] [address] [place], [place] [address] Abbi Choudhary M.D. [id number] RENAL FUNCTION PANELon 01-16 Albumin [Mass/Vol] 3.2 g/dL Normal 3.2-5.2 [facility] Comment on above: Order Comment: [facility] has implemented the eGFR calculation approach that does not have a coefficient for race that conforms to the NKF-ASN Task Force Recommendations. Performed By: #### 4 [id number] ####[facility] [address] [place], [place] [address] Abbi Choudhary M.D. [id number] Anion gap [Moles/Vol] 12 mmol/L Normal 10-20 [facility] Comment on above: Order Comment: [facility] has implemented the eGFR calculation approach that does not have a coefficient for race that conforms to the NKF-ASN Task Force Recommendations. Performed By: #### 4 [id number] ####[facility] [address] [place], [place] [address] Abbi Choudhary M.D. [id number] Calcium [Mass/Vol] 8.6 mg/dL Normal 8.4-10.2 [facility] Comment on above: Order Comment: [facility] has implemented the eGFR calculation approach that does not have a coefficient for race that conforms to the NKF-ASN Task Force Recommendations. Performed By: #### 4 6449 ####[facility] [address] [place], [place] [address] Abbi Choudhary M.D. [id number] Chloride [Moles/Vol] 113 mmol/L High 98-108 [facility] Comment on above: Order Comment: [facility] has implemented the eGFR calculation approach that does not have a coefficient for race that conforms to the NKF-ASN Task Force Recommendations. Performed By: #### 4 [id number] ####[facility] [address] [place], [place] [address] Abbi Choudhary M.D. [id number] Creatinine [Mass/Vol] 1.69 mg/dL High 0.40-1.10 [facility] Comment on above: Order Comment: [facility] has implemented the eGFR calculation approach that does not have a coefficient for race that conforms to the NKF-ASN Task Force Recommendations. Performed By: #### 4 [id number] ####[facility] [address] [place], [place] [address] Abbi Choudhary M.D. [id number] EGFR 38 mL/min/1.73 m2 Low >=60 [facility] Comment on above: Order Comment: [facility] has implemented the eGFR calculation approach that does not have a coefficient for race that conforms to the NKF-ASN Task Force Recommendations. Result Comment: Lorie mated GFR was calculated using the 2020 CKD-EPI creatinine equation. Performed By: #### 4 [id number] ####[facility] [address] [place], [place] [address] Abbi Choudhary M.D. [id number] Glucose [Mass/Vol] 127 mg/dL High 65-99 [facility] Comment on above: Order Comment: [facility] has implemented the eGFR calculation approach that does not have a coefficient for race that conforms to the NKF-ASN Task Force Recommendations. Performed By: #### 4 [id number] ####[facility] [address] [place], [place] [address] Abbi Choudhary M.D. [id number] HCO3 (Bld) [Moles/Vol] 23 mmol/L Normal 21-32 [facility] Comment on above: Order Comment: [facility] has implemented the eGFR calculation approach that does not have a coefficient for race that conforms to the NKF-ASN Task Force Recommendations. Performed By: #### 4 [id number] ####[facility] [address] [place], [place] [address] Abbi Choudhary M.D. [id number] Phosphate [Mass/Vol] 3.7 mg/dL Normal 2.7-4.5 [facility] Comment on above: Order Comment: [facility] has implemented the eGFR calculation approach that does not have a coefficient for race that conforms to the NKF-ASN Task Force Recommendations. Performed By: #### 4 6449 ####[facility] [address] [place], [place] [address] Abbi Choudhary M.D. [id number] Potassium [Moles/Vol] 4.8 mmol/L Normal 3.5-5.1 [facility] Comment on above: Order Comment: [facility] has implemented the eGFR calculation approach that does not have a coefficient for race that conforms to the NKF-ASN Task Force Recommendations. Result Comment: Slig htly Hemolyzed Performed By: #### 4 [id number] ####[facility] [address] [place], [place] [address] Abbi Choudhary M.D. [id number] Sodium [Moles/Vol] 143 mmol/L Normal 135-145 [facility] Comment on above: Order Comment: [facility] has implemented the eGFR calculation approach that does not have a coefficient for race that conforms to the NKF-ASN Task Force Recommendations. Performed By: #### 4 [id number] ####[facility] [address] [place], [place] [address] Abbi Choudhary M.D. [id number] Urea nitrogen [Mass/Vol] 30 mg/dL High 8-25 [facility] Comment on above: Order Comment: [facility] has implemented the eGFR calculation approach that does not have a coefficient for race that conforms to the NKF-ASN Task Force Recommendations. Performed By: #### 4 6449 ####[facility] [address] [place], [place] [address] Abbi Choudhary M.D. [id number] Urea nitrogen/Creatinine [Mass ratio] 17.8 mg/mg Normal 10.0-20.0 [facility] Comment on above: Order Comment: [facility] has implemented the eGFR calculation approach that does not have a coefficient for race that conforms to the NKF-ASN Task Force Recommendations. Performed By: #### 4 [id number] ####[facility] [address] [place], [place] [address] Abbi Choudhary M.D. [id number] Renal function 2000 panelOrd ered By: Janelle Juarez on 01-17-2024 Albumin [Mass/Vol] 3.2 g/dL 3.2 - 5.2 g/dL [facility] Anion gap [Moles/Vol] 12 mmol/L 10 - 2 0 mmol/L [facility] Calcium [Mass/Vol] 8.6 mg/dL 8.4 - 10. 2 mg/dL [facility] Chloride [Moles/Vol] 113 mmol/L High 98 - 10 8 mmol/L [facility] Creatinine [Mass/Vol] 1.69 mg/dL High 0.40 - 1.10 mg/dL [facility] GFR/1.73 sq M.predicted CKD-EPI (S/P/Bld) [Vol rate/Area] 38 Low - PINF [facility] Comment on above: Estimated GFR was ca lculated using the 2020 CKD-EPI creatinine equation. Glucose [Mass/Vol] 127 mg/dL High 65 - 99 mg/dL [facility] HCO3 [Moles/Vol] 23 mmol/L 21 - 32 mmol/L [facility] Interpretation and review of laboratory results Abnormal [facility] Phosphate [Mass/Vol] 3.7 mg/dL 2.7 - 4 .5 mg/dL [facility] Potassium [Moles/Vol] 4.8 mmol/L 3.5 - 5.1 mmol/L [facility] Comment on above: Slightly Hemolyzed Sodium [Moles/Vol] 143 mmol/L 135 - 145 mmol/L [facility] Urea nitrogen [Mass/Vol] 30 mg/dL High 8 - 25 mg/dL [facility] Urea nitrogen/Creatinine [Mass ratio] 17.8 mg/mg 10.0 - 20.0 [facility] has implemented the eGFR calculation approach that does not have a coefficient for race that conforms to the NKF-ASN Task Force Recommendations. [facility] CBCon 01-16-2024 AUTO NRBC 0.0 % Normal [facility] Comment on above: Performed By: #### 4 [id number] ####[facility] [address] [place], [place] [address] Abbi Choudhary M.D. [id number] AUTO NRBC ABS COUNT 0.00 K/mcL Normal 0.00-0.00 [facility] Comment on above: Performed By: #### 4 [id number] ####[facility] [address] [place], [place] [address] Abbi Choudhary M.D. [id number] Erythrocyte distribution width (RBC) [Ratio] 13.1 % Normal 11.6-14.8 [facility] Comment on above: Performed By: #### 4 [id number] ####[facility] [address] [place], [place] [address] Abbi Choudhary M.D. [id number] Hematocrit (Bld) [Volume fraction] 30.1 % Low 36.0-46.0 [facility] Comment on above: Performed By: #### 4 [id number] ####[facility] [address] [place], [place] [address] Abbi Choudhary M.D. [id number] Hemoglobin (Bld) [Mass/Vol] 9.4 g/dL Low 12.0-16.0 [facility] Comment on above: Performed By: #### 4 [id number] ####[facility] [address] [place], [place] [address] Abbi Choudhary M.D. [id number] MCH (RBC) [Entitic mass] 30.1 pg Normal 26.0-34.0 [facility] Comment on above: Performed By: #### 4 [id number] ####[facility] [address] [place], [place] [address] Abbi Choudhary M.D. [id number] MCV (RBC) [Entitic vol] 96.5 fL Normal 80.0-100.0 [facility] Comment on above: Performed By: #### 4 [id number] ####[facility] [address] [place], [place] [address] Abbi Choudhary M.D. [id number] MEAN CORPUSCULAR HEMOGLOBIN CONC 31.2 g/dL Normal 31.0-37.0 [facility] Comment on above: Performed By: #### 4 [id number] ####[facility] [address] [place], [place] [address] Abbi Choudhary M.D. [id number] Platelet mean volume (Bld) [Entitic vol] 9.1 fL Low 9.4-12.4 [facility] Comment on above: Performed By: #### 4 [id number] ####[facility] [address] [place], [place] [address] Abbi Choudhary M.D. [id number] Platelets (Bld) [#/Vol] 285 10*3/uL Normal 150-400 [facility] Comment on above: Performed By: #### 4 [id number] ####[facility] [address] [place] [address] Abbi Choudhary M.D. [id number] RBC (Bld) [#/Vol] 3.12 10*6/uL Low 4.00-5.20 [facility] Comment on above: Performed By: #### 4 [id number] ####[facility] [address] [place] [address] Abbi Choudhary M.D. [id number] WBC (Bld) [#/Vol] 8.82 10*3/uL Normal 4.50-11.00 [facility] Comment on above: Performed By: #### 4 [id number] ####[facility] [address] [place], [place] [address] Abbi Choudhary M.D. [id number] CBC panel Auto (Bld)on 01-15 Erythrocyte distribution width (RBC) [Entitic vol] 13.1 % 11.6 - 14.8 % [facility] Hematocrit (Bld) [Volume fraction] 30.1 % Low 36.0 - 46.0 % [facility] Hemoglobin (Bld) [Mass/Vol] 9.4 g/dL Low 12.0 - 16.0 g/dL [facility] Interpretation and review of laboratory results Abnormal [facility] MCH (RBC) [Entitic mass] 30.1 pg 26.0 - 34.0 pg [facility] MCHC (RBC) [Mass/Vol] 31.2 g/dL 31.0 - 37.0 g/dL [facility] MCV (RBC) [Entitic vol] 96.5 fL 80.0 - 100.0 fL [facility] Nucleated RBC (Bld) [#/Vol] 0.00 10*3/uL [facility] Nucleated RBC/100 WBC (Bld) [Ratio] 0.0 % [facility] Platelet mean volume (Bld) [Entitic vol] 9.1 fL Low 9.4 - 12.4 fL [facility] Platelets (Bld) [#/Vol] 285 10*3/uL [facility] RBC (Bld) [#/Vol] 3.12 10*6/uL Low [facility] WBC (Bld) [#/Vol] 8.82 10*3/uL [facility] eah [facility] CONSULTon 01-16-2024 CONSULT Normal [facility] Glucose (Bld) [Mass/Vol]on 0 01-16-2024 Glucose [Mass/Vol] 211 mg/dL High 65 - 99 mg/dL [facility] Interpretation and review of laboratory results Abnormal [facility] Glucose [Mass/Vol] 106 mg/dL High 65 - 99 mg/dL [facility] Interpretation and review of laboratory results Abnormal [facility] Glucose [Mass/Vol] 222 mg/dL High 65 - 99 mg/dL [facility] Interpretation and review of laboratory results Abnormal [facility] Glucose [Mass/Vol] 69 mg/dL 65 - 99 mg/dL [facility] Interpretation and review of laboratory results Normal [facility] POC GLUCOSE - [facility] 024 Glucose [Mass/Vol] 211 mg/dL High [address] [place] [address] Comment on above: Performed By: #### 4 [id number] ####[facility] [address] [place], [place] [address] Abbi Choudhary M.D. [id number] Glucose [Mass/Vol] 106 mg/dL High [address] [place] [address] Comment on above: Performed By: #### 4 [id number] ####[facility] [address] [place], [place] [address] Abbi Choudhary M.D. [id number] Glucose [Mass/Vol] 222 mg/dL [address] Comment on above: Performed By: #### 4 [id number] ####[facility] [address] [place], [place] [address] Abbi Choudhary M.D. [id number] Glucose [Mass/Vol] 69 mg/dL Normal 65-99 [facility] Comment on above: Performed By: #### 4 6932 ####[facility] [address] [place], [place] [address]Alisia Choudhary M.D. [id number] RENAL FUNCTION PANELon 01-15 Albumin [Mass/Vol] 3.3 g/dL Normal 3.2-5.2 [facility] Comment on above: Order Comment: [facility] has implemented the eGFR calculation approach that does not have a coefficient for race that conforms to the NKF-ASN Task Force Recommendations. Performed By: #### 4 [id number] ####[facility] [address] [place], [place] [address] Abbi Choudhary M.D. [id number] Anion gap [Moles/Vol] 12 mmol/L Normal 10-20 [facility] Comment on above: Order Comment: [facility] has implemented the eGFR calculation approach that does not have a coefficient for race that conforms to the NKF-ASN Task Force Recommendations. Performed By: #### 4 [id number] ####[facility] [address] [place], [place] [address] Abbi Choudhary M.D. [id number] Calcium [Mass/Vol] 8.8 mg/dL Normal 8.4-10.2 [facility] Comment on above: Order Comment: [facility] has implemented the eGFR calculation approach that does not have a coefficient for race that conforms to the NKF-ASN Task Force Recommendations. Performed By: #### 4 [id number] ####[facility] [address] [place], [place] [address] Abbi Choudhary M.D. [id number] Chloride [Moles/Vol] 111 mmol/L High 98-108 [facility] Comment on above: Order Comment: [facility] has implemented the eGFR calculation approach that does not have a coefficient for race that conforms to the NKF-ASN Task Force Recommendations. Performed By: #### 4 [id number] ####[facility] [address] [place], [place] [address] Abbi Choudhary M.D. [id number] Creatinine [Mass/Vol] 1.63 mg/dL High 0.40-1.10 [facility] Comment on above: Order Comment: [facility] has implemented the eGFR calculation approach that does not have a coefficient for race that conforms to the NKF-ASN Task Force Recommendations. Performed By: #### 4 [id number] ####[facility] [address] [place], [place] [address] Abbi Choudhary M.D. [id number] EGFR 39 mL/min/1.73 m2 Low >=60 [facility] Comment on above: Order Comment: [facility] has implemented the eGFR calculation approach that does not have a coefficient for race that conforms to the NKF-ASN Task Force Recommendations. Result Comment: Lorie mated GFR was calculated using the 2020 CKD-EPI creatinine equation. Performed By: #### 4 [id number] ####[facility] [address] [place], [place] [address] Abbi Choudhary M.D. [id number] Glucose [Mass/Vol] 103 mg/dL High 65-99 [facility] Comment on above: Order Comment: [facility] has implemented the eGFR calculation approach that does not have a coefficient for race that conforms to the NKF-ASN Task Force Recommendations. Performed By: #### [id number] ####[facility] [address] [place], [place] [address] Abbi Choudhary M.D. [id number] HCO3 (Bld) [Moles/Vol] 25 mmol/L Normal 21-32 [facility] Comment on above: Order Comment: [facility] has implemented the eGFR calculation approach that does not have a coefficient for race that conforms to the NKF-ASN Task Force Recommendations. Performed By: #### 4 [id number] ####[facility] [address] [place], [place] [address] Abbi Choudhary M.D. [id number] Phosphate [Mass/Vol] 4.1 mg/dL Normal 2.7-4.5 [facility] Comment on above: Order Comment: [facility] has implemented the eGFR calculation approach that does not have a coefficient for race that conforms to the NKF-ASN Task Force Recommendations. Performed By: #### 4 6449 ####[facility] [address] [place], [place] [address] Abbi Choudhary M.D. [id number] Potassium [Moles/Vol] 4.5 mmol/L Normal 3.5-5.1 [facility] Comment on above: Order Comment: [facility] has implemented the eGFR calculation approach that does not have a coefficient for race that conforms to the NKF-ASN Task Force Recommendations. Performed By: #### 4 6449 ####[facility] [address] [place], [place] [address] Abbi Choudhary M.D. [id number] Sodium [Moles/Vol] 143 mmol/L Normal 135-145 [facility] Comment on above: Order Comment: [facility] has implemented the eGFR calculation approach that does not have a coefficient for race that conforms to the NKF-ASN Task Force Recommendations. Performed By: #### 4 [id number] ####[facility] [address] [place], [place] [address] Abbi Choudhary M.D. [id number] Urea nitrogen [Mass/Vol] 27 mg/dL High 8-25 [facility] Comment on above: Order Comment: [facility] has implemented the eGFR calculation approach that does not have a coefficient for race that conforms to the NKF-ASN Task Force Recommendations. Performed By: #### 4 [id number] ####[facility] [address] [place], [place] [address] Abbi Choudhary M.D. [id number] Urea nitrogen/Creatinine [Mass ratio] 16.6 mg/mg Normal 10.0-20.0 [facility] Comment on above: Order Comment: [facility] has implemented the eGFR calculation approach that does not have a coefficient for race that conforms to the NKF-ASN Task Force Recommendations. Performed By: #### 4 [id number] ####[facility] [address] [place], [place] [address] Abbi Choudhary M.D. [id number] Renal function 2000 panelon 01-16-2024 Albumin [Mass/Vol] 3.3 g/dL 3.2 - 5.2 g/dL [facility] Anion gap [Moles/Vol] 12 mmol/L 10 - 2 0 mmol/L [facility] Calcium [Mass/Vol] 8.8 mg/dL 8.4 - 10. 2 mg/dL [facility] Chloride [Moles/Vol] 111 mmol/L High 98 - 10 8 mmol/L [facility] Creatinine [Mass/Vol] 1.63 mg/dL High 0.40 - 1.10 mg/dL [facility] GFR/1.73 sq M.predicted CKD-EPI (S/P/Bld) [Vol rate/Area] 39 Low - PINF [facility] Comment on above: Estimated GFR was ca lculated using the 2020 CKD-EPI creatinine equation. Glucose [Mass/Vol] 103 mg/dL High 65 - 99 mg/dL [facility] HCO3 [Moles/Vol] 25 mmol/L 21 - 32 mmol/L [facility] Interpretation and review of laboratory results Abnormal [facility] Phosphate [Mass/Vol] 4.1 mg/dL 2.7 - 4 .5 mg/dL [facility] Potassium [Moles/Vol] 4.5 mmol/L 3.5 - 5.1 mmol/L [facility] Sodium [Moles/Vol] 143 mmol/L 135 - 145 mmol/L [facility] Urea nitrogen [Mass/Vol] 27 mg/dL High 8 - 25 mg/dL [facility] Urea nitrogen/Creatinine [Mass ratio] 16.6 mg/mg 10.0 - 20.0 [facility] has implemented the eGFR calculation approach that does not have a coefficient for race that conforms to the NKF-ASN Task Force Recommendations. [facility] URINALYSISon 01-16-2024 BACTERIA, URINE Rare Abnormal None Seen [facility] Comment on above: Order Comment: Micro scopic examination is performed on all urinalysis samples and only positive findings are reported. The test for blood on the chemical analytic portion of urinalysis may also be positive due to hemoglobinuria and myoglobinuria and if red blood cells are present they are quantified by microscopic examination. Performed By: #### 4 [id number] ####[facility] [address] [place] [address] Abbi Choudhary M.D. [id number] BILIRUBIN, URINE Negative Normal Negative [facility] Comment on above: Order Comment: Micro scopic examination is performed on all urinalysis samples and only positive findings are reported. The test for blood on the chemical analytic portion of urinalysis may also be positive due to hemoglobinuria and myoglobinuria and if red blood cells are present they are quantified by microscopic examination. Performed By: #### 4 6625 ####[facility] [address] [place], [place] [address] Abbi Choudhary M.D. [id number] BLOOD, URINE Negative Normal Negative [facility] Comment on above: Order Comment: Micro scopic examination is performed on all urinalysis samples and only positive findings are reported. The test for blood on the chemical analytic portion of urinalysis may also be positive due to hemoglobinuria and myoglobinuria and if red blood cells are present they are quantified by microscopic examination. Performed By: #### 4 [id number] ####[facility] [address] [place], [place] [address] Abbi Choudhary M.D. [id number] Clarity (U) Clear Normal Clear [facility] Comment on above: Order Comment: Micro scopic examination is performed on all urinalysis samples and only positive findings are reported. The test for blood on the chemical analytic portion of urinalysis may also be positive due to hemoglobinuria and myoglobinuria and if red blood cells are present they are quantified by microscopic examination. Performed By: #### 4 6625 ####[facility] [address] [place], [place] [address] Abbi Choudhary M.D. [id number] Color (U) Yellow Normal Colorless, Yellow [facility] Comment on above: Order Comment: Micro scopic examination is performed on all urinalysis samples and only positive findings are reported. The test for blood on the chemical analytic portion of urinalysis may also be positive due to hemoglobinuria and myoglobinuria and if red blood cells are present they are quantified by microscopic examination. Performed By: #### 4 6625 ####[facility] [address] [place], [place] [address] Abbi Choudhary M.D. [id number] Glucose Ql (U) 50 mg/dL Abnormal Negative [facility] Comment on above: Order Comment: Micro scopic examination is performed on all urinalysis samples and only positive findings are reported. The test for blood on the chemical analytic portion of urinalysis may also be positive due to hemoglobinuria and myoglobinuria and if red blood cells are present they are quantified by microscopic examination. Performed By: #### 4 [id number] ####[facility] [address] [place], [place] [address] Abbi Choudhary M.D. [id number] Hyaline casts LM Ql (Urine sed) 3-5 Abnormal 0-2 [facility] Comment on above: Order Comment: Micro scopic examination is performed on all urinalysis samples and only positive findings are reported. The test for blood on the chemical analytic portion of urinalysis may also be positive due to hemoglobinuria and myoglobinuria and if red blood cells are present they are quantified by microscopic examination. Performed By: #### 4 6625 ####[facility] [address] [place], [place] [address] Abbi Choudhary M.D. [id number] Ketones Ql (U) Negative Normal Negative [facility] Comment on above: Order Comment: Micro scopic examination is performed on all urinalysis samples and only positive findings are reported. The test for blood on the chemical analytic portion of urinalysis may also be positive due to hemoglobinuria and myoglobinuria and if red blood cells are present they are quantified by microscopic examination. Performed By: #### 4 6625 ####[facility] [address] [place], [place] [address] Abbi Choudhary M.D. [id number] Leukocyte esterase Test strip Ql (U) Negative Normal Negative [facility] Comment on above: Order Comment: Micro scopic examination is performed on all urinalysis samples and only positive findings are reported. The test for blood on the chemical analytic portion of urinalysis may also be positive due to hemoglobinuria and myoglobinuria and if red blood cells are present they are quantified by microscopic examination. Performed By: #### 4 6625 ####[facility] [address] [place], [place] [address] Abbi Choudhary M.D. [id number] MUCUS, URINE Rare Normal None Seen, Rare [facility] Comment on above: Order Comment: Micro scopic examination is performed on all urinalysis samples and only positive findings are reported. The test for blood on the chemical analytic portion of urinalysis may also be positive due to hemoglobinuria and myoglobinuria and if red blood cells are present they are quantified by microscopic examination. Performed By: #### 4 6625 ####[facility] [address] [place] [address] Abbi Choudhary M.D. [id number] NITRITE, URINE Negative Normal Negative [facility] Comment on above: Order Comment: Micro scopic examination is performed on all urinalysis samples and only positive findings are reported. The test for blood on the chemical analytic portion of urinalysis may also be positive due to hemoglobinuria and myoglobinuria and if red blood cells are present they are quantified by microscopic examination. Performed By: #### 4 6625 ####[facility] [address] [place] [address] Abbi Choudhary M.D. [id number] pH (U) 5.0 [pH] Normal 5.0-7.0 [facility] Comment on above: Order Comment: Micro scopic examination is performed on all urinalysis samples and only positive findings are reported. The test for blood on the chemical analytic portion of urinalysis may also be positive due to hemoglobinuria and myoglobinuria and if red blood cells are present they are quantified by microscopic examination. Performed By: #### 4 6625 ####[facility] [address] [place] [address] Abbi Choudhary M.D. [id number] Protein (U) [Mass/Vol] 100 mg/dL Abnormal Negative [facility] Comment on above: Order Comment: Micro scopic examination is performed on all urinalysis samples and only positive findings are reported. The test for blood on the chemical analytic portion of urinalysis may also be positive due to hemoglobinuria and myoglobinuria and if red blood cells are present they are quantified by microscopic examination. Performed By: #### 4 6625 ####[facility] [address] [place] [address] Abbi Choudhary M.D. [id number] RBC LM.HPF (Urine sed) [#/Area] 2 /[HPF] Normal 0-3 [facility] Comment on above: Order Comment: Micro scopic examination is performed on all urinalysis samples and only positive findings are reported. The test for blood on the chemical analytic portion of urinalysis may also be positive due to hemoglobinuria and myoglobinuria and if red blood cells are present they are quantified by microscopic examination. Performed By: #### 4 6625 ####[facility] [address] [place], [place] [address] Abbi Choudhary M.D. [id number] Specific gravity (U) [Rel density] 1.013 Normal 1.005-1.025 [facility] Comment on above: Order Comment: Micro scopic examination is performed on all urinalysis samples and only positive findings are reported. The test for blood on the chemical analytic portion of urinalysis may also be positive due to hemoglobinuria and myoglobinuria and if red blood cells are present they are quantified by microscopic examination. Performed By: #### 4 [id number] ####[facility] [address] [place] [address] Abbi Choudhary M.D. [id number] SQUAMOUS EPITHELIAL 2 /hpf Normal 0-4 [facility] Comment on above: Order Comment: Micro scopic examination is performed on all urinalysis samples and only positive findings are reported. The test for blood on the chemical analytic portion of urinalysis may also be positive due to hemoglobinuria and myoglobinuria and if red blood cells are present they are quantified by microscopic examination. Performed By: #### 4 6625 ####[facility] [address] [place], [place] [address] Abbi Choudhary M.D. [id number] UROBILINOGEN, URINE <2.0 Normal <2.0 [facility] Comment on above: Order Comment: Micro scopic examination is performed on all urinalysis samples and only positive findings are reported. The test for blood on the chemical analytic portion of urinalysis may also be positive due to hemoglobinuria and myoglobinuria and if red blood cells are present they are quantified by microscopic examination. Performed By: #### 4 6625 ####[facility] [address] [place], [place] [address] Abbi Choudhary M.D. [id number] WBC LM.HPF (Urine sed) [#/Area] 1 /[HPF] Normal 0-5 [facility] Comment on above: Order Comment: Micro scopic examination is performed on all urinalysis samples and only positive findings are reported. The test for blood on the chemical analytic portion of urinalysis may also be positive due to hemoglobinuria and myoglobinuria and if red blood cells are present they are quantified by microscopic examination. Performed By: #### 4 [id number] ####[facility] [address] [place] [address] Abbi Choudhary M.D. [id number] US Kidney - bilateral and Ur inary bladderon 01-16-2024 Radiology Study observation (narrative) [facility] US RENAL AND BLADDERon 01-15 US RENAL AND BLADDER Normal [facility] Comment on above: Order Comment: Injur y/Trauma or Illness?:Illness/OtherHow long have you had these symptoms (acute/chronic)?:AcuteReason for exam?:akiHistory of cancer?:uSurgeries, chemotherapy, or radiation?:pacemakerType of Exam?:InitialAdditional signs and symptoms?:none UrinalysisOrdered By: Mayela Schmitt on 01-16-2024 Bacteria Auto Ql (U) Rare Abnormal None Se en /hpf [facility] Bilirubin Ql (U) Negative Negative [facility] th Clarity Refractometry automated (U) Clear Clear [facility] Color (U) Yellow Colorless, Yellow [facility] Epithelial cells.squamous Auto (Urine sed) [#/Area] 2 [facility] Glucose Auto test strip (U) [Mass/Vol] 50 mg/dL Abnormal Negative [facility] Hemoglobin Auto test strip Ql (U) Negative Negative [facility] Hyaline casts Auto (Urine sed) [#/Area] 3-5 Abnormal [facility] Interpretation and review of laboratory results Abnormal [facility] Ketones (U) [Mass/Vol] Negative Negative mg/dL [facility] Leukocyte esterase Auto test strip Ql (U) Negative Negative [facility] Mucus Auto (Urine sed) [#/Area] Rare None Seen, Rare /lpf [facility] Nitrite Auto test strip Ql (U) Negative Negative [facility] pH (U) 5.0 [pH] 5.0 - 7.0 [facility] Protein (U) [Mass/Vol] 100 mg/dL Abnormal Negative [facility] RBC Auto (Urine sed) [#/Area] 2 [facility] Specific gravity (U) [Rel density] 1.013 1.005 - 1.025 [facility] Urobilinogen (U) [Mass/Vol] mg/dL NINF - 2.0 mg/dL [facility] WBC Auto (Urine sed) [#/Area] 1 [facility] Microscopic examinat ion is performed on all urinalysis samples and only positive findings are reported. The test for blood on the chemical analytic portion of urinalysis may also be positive due to hemoglobinuria and myoglobinuria and if red blood cells are present they are quantified by microscopic examination. [facility] CBCon 01-15-2024 AUTO NRBC 0.0 % Normal [facility] Comment on above: Performed By: #### 4 [id number] ####[facility] [address] [place] [address] Abbi Choudhary M.D. [id number] AUTO NRBC ABS COUNT 0.00 K/mcL Normal 0.00-0.00 [facility] Comment on above: Performed By: #### 4 [id number] ####[facility] [address] [place] [address] Abbi Choudhary M.D. [id number] Erythrocyte distribution width (RBC) [Ratio] 13.1 % Normal 11.6-14.8 [facility] Comment on above: Performed By: #### 4 [id number] ####[facility] [address] [place] [address] Abbi Choudhary M.D. [id number] Hematocrit (Bld) [Volume fraction] 31.2 % Low 36.0-46.0 [facility] Comment on above: Performed By: #### 4 [id number] ####[facility] [address] [place], [place] [address] Abbi Choudhary M.D. [id number] Hemoglobin (Bld) [Mass/Vol] 9.9 g/dL Low 12.0-16.0 [facility] Comment on above: Performed By: #### 4 [id number] ####[facility] [address] [place] [address] Abbi Choudhary M.D. [id number] MCH (RBC) [Entitic mass] 30.6 pg Normal 26.0-34.0 [facility] Comment on above: Performed By: #### 4 [id number] ####[facility] [address] [place], [place] [address] Abbi Choudhary M.D. [id number] MCV (RBC) [Entitic vol] 96.3 fL Normal 80.0-100.0 [facility] Comment on above: Performed By: #### 4 [id number] ####[facility] [address] [place], [place] [address] Abbi Choudhary M.D. [id number] MEAN CORPUSCULAR HEMOGLOBIN CONC 31.7 g/dL Normal 31.0-37.0 [facility] Comment on above: Performed By: #### 4 [id number] ####[facility] [address] [place], [place] [address] Abbi Cohudhary M.D. [id number] Platelet mean volume (Bld) [Entitic vol] 9.3 fL Low 9.4-12.4 [facility] Comment on above: Performed By: #### 4 [id number] ####[facility] [address] [place], [place] [address] Abbi Choudhary M.D. [id number] Platelets (Bld) [#/Vol] 266 10*3/uL Normal 150-400 [facility] Comment on above: Performed By: #### 4 [id number] ####[facility] [address] [place], [place] [address] Abbi Choudhary M.D. [id number] RBC (Bld) [#/Vol] 3.24 10*6/uL Low 4.00-5.20 [facility] Comment on above: Performed By: #### 4 [id number] ####[facility] [address] [place], [place] [address] Abbi Choudhary M.D. [id number] WBC (Bld) [#/Vol] 7.12 10*3/uL Normal 4.50-11.00 [facility] Comment on above: Performed By: #### 4 [id number] ####[facility] [address] [place], [place] [address] Abbi Choudhary M.D. [id number] CBC panel Auto (Bld)on 01-14 Erythrocyte distribution width (RBC) [Entitic vol] 13.1 % 11.6 - 14.8 % [facility] Hematocrit (Bld) [Volume fraction] 31.2 % Low 36.0 - 46.0 % [facility] Hemoglobin (Bld) [Mass/Vol] 9.9 g/dL Low 12.0 - 16.0 g/dL [facility] Interpretation and review of laboratory results Abnormal [facility] MCH (RBC) [Entitic mass] 30.6 pg 26.0 - 34.0 pg [facility] MCHC (RBC) [Mass/Vol] 31.7 g/dL 31.0 - 37.0 g/dL [facility] MCV (RBC) [Entitic vol] 96.3 fL 80.0 - 100.0 fL [facility] Nucleated RBC (Bld) [#/Vol] 0.00 10*3/uL [facility] Nucleated RBC/100 WBC (Bld) [Ratio] 0.0 % [facility] Platelet mean volume (Bld) [Entitic vol] 9.3 fL Low 9.4 - 12.4 fL [facility] Platelets (Bld) [#/Vol] 266 10*3/uL [facility] RBC (Bld) [#/Vol] 3.24 10*6/uL Low [facility] WBC (Bld) [#/Vol] 7.12 10*3/uL [facility] Glucose (Bld) [Mass/Vol]on 0 01-15-2024 Glucose [Mass/Vol] 233 mg/dL High 65 - 99 mg/dL [facility] Interpretation and review of laboratory results Abnormal [facility] Glucose [Mass/Vol] 103 mg/dL High 65 - 99 mg/dL [facility] Interpretation and review of laboratory results Abnormal [facility] Glucose [Mass/Vol] 89 mg/dL 65 - 99 mg/dL [facility] Interpretation and review of laboratory results Normal [facility] Glucose [Mass/Vol] 104 mg/dL High 65 - 99 mg/dL [facility] Interpretation and review of laboratory results Abnormal [facility] Glucose [Mass/Vol] 233 mg/dL High 65-99 [facility] Comment on above: Performed By: #### 4 6932 ####[facility] [address] [place] [address] Abbi Choudhary M.D. [id number] Glucose [Mass/Vol] 103 mg/dL High [address] [place] [address] Comment on above: Performed By: #### 4 6932 ####[facility] [address] [place], [place] [address] Abbi Choudhary M.D. [id number] Glucose [Mass/Vol] 89 mg/dL Normal [address] [place] [address] Comment on above: Performed By: #### 4 6932 ####[facility] [address] [place], [place] [address] Abbi Choudhary M.D. [id number] Glucose [Mass/Vol] 104 mg/dL High [address] [place] [address] Comment on above: Performed By: #### 4 6932 ####[facility] [address] [place], [place] [address] Abbi Choudhary M.D. [id number] RENAL FUNCTION PANELon 01-14 Albumin [Mass/Vol] 3.4 g/dL Normal 3.2-5.2 [facility] Comment on above: Order Comment: [facility] has implemented the eGFR calculation approach that does not have a coefficient for race that conforms to the NKF-ASN Task Force Recommendations. Performed By: #### 4 6449 ####[facility] [address] [place], [place] [address] Abbi Choudhary M.D. [id number] Anion gap [Moles/Vol] 13 mmol/L Normal 10-20 [facility] Comment on above: Order Comment: [facility] has implemented the eGFR calculation approach that does not have a coefficient for race that conforms to the NKF-ASN Task Force Recommendations. Performed By: #### 4 6449 ####[facility] [address] [place], [place] [address] Abbi Choudhary M.D. [id number] Calcium [Mass/Vol] 8.7 mg/dL Normal 8.4-10.2 [facility] Comment on above: Order Comment: [facility] has implemented the eGFR calculation approach that does not have a coefficient for race that conforms to the NKF-ASN Task Force Recommendations. Performed By: #### 4 6449 ####[facility] [address] [place], [place] [address] Abbi Choudhary M.D. [id number] Chloride [Moles/Vol] 109 mmol/L High 98-108 [facility] Comment on above: Order Comment: [facility] has implemented the eGFR calculation approach that does not have a coefficient for race that conforms to the NKF-ASN Task Force Recommendations. Performed By: #### 4 6449 ####[facility] [address] [place], [place] [address] Abbi Choudhary M.D. [id number] Creatinine [Mass/Vol] 1.59 mg/dL High 0.40-1.10 [facility] Comment on above: Order Comment: [facility] has implemented the eGFR calculation approach that does not have a coefficient for race that conforms to the NKF-ASN Task Force Recommendations. Performed By: #### 4 6449 ####[facility] [address] [place], [place] [address] Abbi Choudhary M.D. [id number] EGFR 40 mL/min/1.73 m2 Low >=60 [facility] Comment on above: Order Comment: [facility] has implemented the eGFR calculation approach that does not have a coefficient for race that conforms to the NKF-ASN Task Force Recommendations. Result Comment: Lorie mated GFR was calculated using the 2020 CKD-EPI creatinine equation. Performed By: #### 4 [id number] ####[facility] [address] [place], [place] [address] Abbi Choudhary M.D. [id number] Glucose [Mass/Vol] 102 mg/dL High 65-99 [facility] Comment on above: Order Comment: [facility] has implemented the eGFR calculation approach that does not have a coefficient for race that conforms to the NKF-ASN Task Force Recommendations. Performed By: #### 4 6449 ####[facility] [address] [place], [place] [address] Abbi Choudhary M.D. [id number] HCO3 (Bld) [Moles/Vol] 25 mmol/L Normal 21-32 [facility] Comment on above: Order Comment: [facility] has implemented the eGFR calculation approach that does not have a coefficient for race that conforms to the NKF-ASN Task Force Recommendations. Performed By: #### 4 [id number] ####[facility] [address] [place], [place] [address] Abbi Choudhary M.D. [id number] Phosphate [Mass/Vol] 4.8 mg/dL High 2.7-4.5 [facility] Comment on above: Order Comment: [facility] has implemented the eGFR calculation approach that does not have a coefficient for race that conforms to the NKF-ASN Task Force Recommendations. Performed By: #### 4 [id number] ####[facility] [address] [place] [address] Abbi Choudhary M.D. [id number] Potassium [Moles/Vol] 4.2 mmol/L Normal 3.5-5.1 [facility] Comment on above: Order Comment: [facility] has implemented the eGFR calculation approach that does not have a coefficient for race that conforms to the NKF-ASN Task Force Recommendations. Performed By: #### 4 [id number] ####[facility] [address] [place] [address] Abbi Choudhary M.D. [id number] Sodium [Moles/Vol] 143 mmol/L Normal 135-145 [facility] Comment on above: Order Comment: [facility] has implemented the eGFR calculation approach that does not have a coefficient for race that conforms to the NKF-ASN Task Force Recommendations. Performed By: #### 4 [id number] ####[facility] [address] [place], [place] [address] Abbi Choudhary M.D. [id number] Urea nitrogen [Mass/Vol] 27 mg/dL High 8-25 [facility] Comment on above: Order Comment: [facility] has implemented the eGFR calculation approach that does not have a coefficient for race that conforms to the NKF-ASN Task Force Recommendations. Performed By: #### 4 [id number] ####[facility] [address] [place], [place] [address] Abbi Choudhary M.D. [id number] Urea nitrogen/Creatinine [Mass ratio] 17.0 mg/mg Normal 10.0-20.0 [facility] Comment on above: Order Comment: [facility] has implemented the eGFR calculation approach that does not have a coefficient for race that conforms to the NKF-ASN Task Force Recommendations. Performed By: #### 4 [id number] ####[facility] [address] [place] [address] Abbi Choudhary M.D. [id number] Renal function 2000 panelon 01-15-2024 Albumin [Mass/Vol] 3.4 g/dL 3.2 - 5.2 g/dL [facility] Anion gap [Moles/Vol] 13 mmol/L 10 - 2 0 mmol/L [facility] Calcium [Mass/Vol] 8.7 mg/dL 8.4 - 10. 2 mg/dL [facility] Chloride [Moles/Vol] 109 mmol/L High 98 - 10 8 mmol/L [facility] Creatinine [Mass/Vol] 1.59 mg/dL High 0.40 - 1.10 mg/dL [facility] GFR/1.73 sq M.predicted CKD-EPI (S/P/Bld) [Vol rate/Area] 40 Low - PINF [facility] Comment on above: Estimated GFR was ca lculated using the 2020 CKD-EPI creatinine equation. Glucose [Mass/Vol] 102 mg/dL High 65 - 99 mg/dL [facility] HCO3 [Moles/Vol] 25 mmol/L 21 - 32 mmol/L [facility] Interpretation and review of laboratory results Abnormal [facility] Phosphate [Mass/Vol] 4.8 mg/dL High 2.7 - 4 .5 mg/dL [facility] Potassium [Moles/Vol] 4.2 mmol/L 3.5 - 5.1 mmol/L [facility] Sodium [Moles/Vol] 143 mmol/L 135 - 145 mmol/L [facility] Urea nitrogen [Mass/Vol] 27 mg/dL High 8 - 25 mg/dL [facility] Urea nitrogen/Creatinine [Mass ratio] 17.0 mg/mg 10.0 - 20.0 [facility] has implemented the eGFR calculation approach that does not have a coefficient for race that conforms to the NKF-ASN Task Force Recommendations. [facility] CBCon 01-14-2024 AUTO NRBC 0.0 % Normal [facility] Comment on above: Performed By: #### 4 [id number] ####[facility] [address] [place], [place] [address] Abbi Choudhary M.D. [id number] AUTO NRBC ABS COUNT 0.00 K/mcL Normal 0.00-0.00 [facility] Comment on above: Performed By: #### 4 [id number] ####[facility] [address] [place], [place] [address] Abbi Choudhary M.D. [id number] Erythrocyte distribution width (RBC) [Ratio] 13.2 % Normal 11.6-14.8 [facility] Comment on above: Performed By: #### 4 [id number] ####[facility] [address] [place], [place] [address] Abbi Choudhary M.D. [id number] Hematocrit (Bld) [Volume fraction] 29.6 % Low 36.0-46.0 [facility] Comment on above: Performed By: #### 4 [id number] ####[facility] [address] [place], [place] [address] Abbi Choudhary M.D. [id number] Hemoglobin (Bld) [Mass/Vol] 9.7 g/dL Low 12.0-16.0 [facility] Comment on above: Performed By: #### 4 [id number] ####[facility] [address] [place], [place] [address] Abbi Choudhary M.D. [id number] MCH (RBC) [Entitic mass] 30.8 pg Normal 26.0-34.0 [facility] Comment on above: Performed By: #### 4 [id number] ####[facility] [address] [place], [place] [address] Abbi Choudhary M.D. [id number] MCV (RBC) [Entitic vol] 94.0 fL Normal 80.0-100.0 [facility] Comment on above: Performed By: #### 4 [id number] ####[facility] [address] [place], [place] [address] Abbi Choudhary M.D. [id number] MEAN CORPUSCULAR HEMOGLOBIN CONC 32.8 g/dL Normal 31.0-37.0 [facility] Comment on above: Performed By: #### 4 [id number] ####[facility] [address] [place], [place] [address] Abbi Choudhary M.D. [id number] Platelet mean volume (Bld) [Entitic vol] 9.0 fL Low 9.4-12.4 [facility] Comment on above: Performed By: #### 4 [id number] ####[facility] [address] [place] [address] Abbi Choudhary M.D. [id number] Platelets (Bld) [#/Vol] 264 10*3/uL Normal 150-400 [facility] Comment on above: Performed By: #### 4 [id number] ####[facility] [address] [place] [address] Abbi Choudhary M.D. [id number] RBC (Bld) [#/Vol] 3.15 10*6/uL Low 4.00-5.20 [facility] Comment on above: Performed By: #### 4 [id number] ####[facility] [address] [place] [address] Abbi Choudhary M.D. [id number] WBC (Bld) [#/Vol] 7.49 10*3/uL Normal 4.50-11.00 [facility] Comment on above: Performed By: #### 4 [id number] ####[facility] [address] [place] [address] Abbi Choudhary M.D. [id number] CBC panel Auto (Bld)on 01-13 Erythrocyte distribution width (RBC) [Entitic vol] 13.2 % 11.6 - 14.8 % [facility] Hematocrit (Bld) [Volume fraction] 29.6 % Low 36.0 - 46.0 % [facility] Hemoglobin (Bld) [Mass/Vol] 9.7 g/dL Low 12.0 - 16.0 g/dL [facility] Interpretation and review of laboratory results Abnormal [facility] MCH (RBC) [Entitic mass] 30.8 pg 26.0 - 34.0 pg [facility] MCHC (RBC) [Mass/Vol] 32.8 g/dL 31.0 - 37.0 g/dL [facility] MCV (RBC) [Entitic vol] 94.0 fL 80.0 - 100.0 fL [facility] Nucleated RBC (Bld) [#/Vol] 0.00 10*3/uL [facility] Nucleated RBC/100 WBC (Bld) [Ratio] 0.0 % [facility] Platelet mean volume (Bld) [Entitic vol] 9.0 fL Low 9.4 - 12.4 fL [facility] Platelets (Bld) [#/Vol] 264 10*3/uL [facility] RBC (Bld) [#/Vol] 3.15 10*6/uL Low [facility] WBC (Bld) [#/Vol] 7.49 10*3/uL [facility] [Catalytic activity/Vol]o n 01-14-2024 Interpretation and review of laboratory results Normal [facility] CPKon 01-14-2024 CPK 57 U/L Normal 40-170 [facility] Comment on above: Performed By: #### 4 [id number] ####[facility] [address] [place], [place] [address] Abbi Choudhary M.D. [id number] CPK NO MBon 01-14-2024 CK [Catalytic activity/Vol] 57 U/L 40 - 170 U/L [facility] Glucose (Bld) [Mass/Vol]on 0 01-14-2024 Glucose [Mass/Vol] 194 mg/dL High 65 - 99 mg/dL [facility] Interpretation and review of laboratory results Abnormal [facility] Glucose [Mass/Vol] 77 mg/dL 65 - 99 mg/dL [facility] Interpretation and review of laboratory results Normal [facility] Glucose [Mass/Vol] 239 mg/dL High 65 - 99 mg/dL [facility] Interpretation and review of laboratory results Abnormal [facility] Glucose [Mass/Vol] 99 mg/dL 65 - 99 mg/dL [facility] Interpretation and review of laboratory results Normal [facility] POC GLUCOSE - [facility] 024 Glucose [Mass/Vol] 194 mg/dL High 65-99 [facility] Comment on above: Performed By: #### 4 6932 ####[facility] [address] [place], [place] [address]Alisia Choudhary M.D. [id number] Glucose [Mass/Vol] 77 mg/dL Normal 65-99 [facility] Comment on above: Performed By: #### 4 6932 ####[facility] [address] [place], [place] [address] Abbi Choudhary M.D. [id number] Glucose [Mass/Vol] 239 mg/dL High 65-99 [facility] Comment on above: Performed By: #### 4 [id number] ####[facility] [address] [place], [place] [address] Abbi Chouhdary M.D. [id number] Glucose [Mass/Vol] 99 mg/dL Normal 65-99 [facility] Comment on above: Performed By: #### 4 [id number] ####[facility] [address] [place], [place] [address] Abbi Choudhary M.D. [id number] RENAL FUNCTION PANELon 01-13 Albumin [Mass/Vol] 3.4 g/dL Normal 3.2-5.2 [facility] Comment on above: Order Comment: [facility] has implemented the eGFR calculation approach that does not have a coefficient for race that conforms to the NKF-ASN Task Force Recommendations. Performed By: #### 4 [id number] ####[facility] [address] [place], [place] [address] Abbi Choudhary M.D. [id number] Anion gap [Moles/Vol] 13 mmol/L Normal 10-20 [facility] Comment on above: Order Comment: [facility] has implemented the eGFR calculation approach that does not have a coefficient for race that conforms to the NKF-ASN Task Force Recommendations. Performed By: #### 4 [id number] ####[facility] [address] [place], [place] [address] Abbi Choudhary M.D. [id number] Calcium [Mass/Vol] 8.5 mg/dL Normal 8.4-10.2 [facility] Comment on above: Order Comment: [facility] has implemented the eGFR calculation approach that does not have a coefficient for race that conforms to the NKF-ASN Task Force Recommendations. Performed By: #### 4 6449 ####[facility] [address] [place], [place] [address] Abbi Choudhary M.D. [id number] Chloride [Moles/Vol] 107 mmol/L Normal 98-108 [facility] Comment on above: Order Comment: [facility] has implemented the eGFR calculation approach that does not have a coefficient for race that conforms to the NKF-ASN Task Force Recommendations. Performed By: #### 4 6449 ####[facility] [address] [place], [place] [address] Abbi Choudhary M.D. [id number] Creatinine [Mass/Vol] 1.59 mg/dL High 0.40-1.10 [facility] Comment on above: Order Comment: [facility] has implemented the eGFR calculation approach that does not have a coefficient for race that conforms to the NKF-ASN Task Force Recommendations. Performed By: #### 4 6449 ####[facility] [address] [place] [address] Abbi Choudhary M.D. [id number] EGFR 40 mL/min/1.73 m2 Low >=60 [facility] Comment on above: Order Comment: [facility] has implemented the eGFR calculation approach that does not have a coefficient for race that conforms to the NKF-ASN Task Force Recommendations. Result Comment: Lorie mated GFR was calculated using the 2020 CKD-EPI creatinine equation. Performed By: #### 4 [id number] ####[facility] [address] [place], [place] [address] Abbi Choudhary M.D. [id number] Glucose [Mass/Vol] 149 mg/dL High 65-99 [facility] Comment on above: Order Comment: [facility] has implemented the eGFR calculation approach that does not have a coefficient for race that conforms to the NKF-ASN Task Force Recommendations. Performed By: #### 4 [id number] ####[facility] [address] [place], [place] [address] Abbi Choudhary M.D. [id number] HCO3 (Bld) [Moles/Vol] 25 mmol/L Normal 21-32 [facility] Comment on above: Order Comment: [facility] has implemented the eGFR calculation approach that does not have a coefficient for race that conforms to the NKF-ASN Task Force Recommendations. Performed By: #### 4 [id number] ####[facility] [address] [place], [place] [address] Abbi Choudhary M.D. [id number] Phosphate [Mass/Vol] 4.7 mg/dL High 2.7-4.5 [facility] Comment on above: Order Comment: [facility] has implemented the eGFR calculation approach that does not have a coefficient for race that conforms to the NKF-ASN Task Force Recommendations. Performed By: #### 4 6449 ####[facility] [address] [place], [place] [address] Abbi Choudhary M.D. [id number] Potassium [Moles/Vol] 4.1 mmol/L Normal 3.5-5.1 [facility] Comment on above: Order Comment: [facility] has implemented the eGFR calculation approach that does not have a coefficient for race that conforms to the NKF-ASN Task Force Recommendations. Performed By: #### 4 [id number] ####[facility] [address] [place], [place] [address] Abbi Choudhary M.D. [id number] Sodium [Moles/Vol] 141 mmol/L Normal 135-145 [facility] Comment on above: Order Comment: [facility] has implemented the eGFR calculation approach that does not have a coefficient for race that conforms to the NKF-ASN Task Force Recommendations. Performed By: #### 4 6449 ####[facility] [address] [place], [place] [address] Abbi Choudhary M.D. [id number] Urea nitrogen [Mass/Vol] 28 mg/dL High 8-25 [facility] Comment on above: Order Comment: [facility] has implemented the eGFR calculation approach that does not have a coefficient for race that conforms to the NKF-ASN Task Force Recommendations. Performed By: #### 4 6449 ####[facility] [address] [place], [place] [address] Abbi Choudhary M.D. [id number] Urea nitrogen/Creatinine [Mass ratio] 17.6 mg/mg Normal 10.0-20.0 [facility] Comment on above: Order Comment: [facility] has implemented the eGFR calculation approach that does not have a coefficient for race that conforms to the NKF-ASN Task Force Recommendations. Performed By: #### 4 6449 ####[facility] [address] [place] [address] Abbi Choudhary M.D. [id number] Renal function 2000 panelon 01-14-2024 Albumin [Mass/Vol] 3.4 g/dL 3.2 - 5.2 g/dL [facility] Anion gap [Moles/Vol] 13 mmol/L 10 - 2 0 mmol/L [facility] Calcium [Mass/Vol] 8.5 mg/dL 8.4 - 10. 2 mg/dL [facility] Chloride [Moles/Vol] 107 mmol/L 98 - 10 8 mmol/L [facility] Creatinine [Mass/Vol] 1.59 mg/dL High 0.40 - 1.10 mg/dL [facility] GFR/1.73 sq M.predicted CKD-EPI (S/P/Bld) [Vol rate/Area] 40 Low - PINF [facility] Comment on above: Estimated GFR was ca lculated using the 2020 CKD-EPI creatinine equation. Glucose [Mass/Vol] 149 mg/dL High 65 - 99 mg/dL [facility] HCO3 [Moles/Vol] 25 mmol/L 21 - 32 mmol/L [facility] Interpretation and review of laboratory results Abnormal [facility] Phosphate [Mass/Vol] 4.7 mg/dL High 2.7 - 4 .5 mg/dL [facility] Potassium [Moles/Vol] 4.1 mmol/L 3.5 - 5.1 mmol/L [facility] Sodium [Moles/Vol] 141 mmol/L 135 - 145 mmol/L [facility] Urea nitrogen [Mass/Vol] 28 mg/dL High 8 - 25 mg/dL [facility] Urea nitrogen/Creatinine [Mass ratio] 17.6 mg/mg 10.0 - 20.0 [facility] has implemented the eGFR calculation approach that does not have a coefficient for race that conforms to the NKF-ASN Task Force Recommendations. [facility] URINALYSISon 01-14-2024 BACTERIA, URINE None Seen Normal None Seen [facility] Comment on above: Order Comment: Micro scopic examination is performed on all urinalysis samples and only positive findings are reported. The test for blood on the chemical analytic portion of urinalysis may also be positive due to hemoglobinuria and myoglobinuria and if red blood cells are present they are quantified by microscopic examination. Performed By: #### 4 [id number] ####[facility] [address] [place], [place] [address] Abbi Choudhary M.D. [id number] BILIRUBIN, URINE Negative Normal Negative [facility] Comment on above: Order Comment: Micro scopic examination is performed on all urinalysis samples and only positive findings are reported. The test for blood on the chemical analytic portion of urinalysis may also be positive due to hemoglobinuria and myoglobinuria and if red blood cells are present they are quantified by microscopic examination. Performed By: #### 4 [id number] ####[facility] [address] [place], [place] [address] Abbi Choudhary M.D. [id number] BLOOD, URINE Negative Normal Negative [facility] Comment on above: Order Comment: Micro scopic examination is performed on all urinalysis samples and only positive findings are reported. The test for blood on the chemical analytic portion of urinalysis may also be positive due to hemoglobinuria and myoglobinuria and if red blood cells are present they are quantified by microscopic examination. Performed By: #### 4 [id number] ####[facility] [address] [place], [place] [address] Abbi Choudhary M.D. [id number] Clarity (U) Clear Normal Clear [facility] Comment on above: Order Comment: Micro scopic examination is performed on all urinalysis samples and only positive findings are reported. The test for blood on the chemical analytic portion of urinalysis may also be positive due to hemoglobinuria and myoglobinuria and if red blood cells are present they are quantified by microscopic examination. Performed By: #### 4 [id number] ####[facility] [address] [place], [place] [address] Abbi Choudhary M.D. [id number] Color (U) Yellow Normal Colorless, Yellow [facility] Comment on above: Order Comment: Micro scopic examination is performed on all urinalysis samples and only positive findings are reported. The test for blood on the chemical analytic portion of urinalysis may also be positive due to hemoglobinuria and myoglobinuria and if red blood cells are present they are quantified by microscopic examination. Performed By: #### 4 [id number] ####[facility] [address] [place], [place] [address] Abbi Choudhary M.D. [id number] Glucose Ql (U) 150 mg/dL Abnormal Negative [facility] Comment on above: Order Comment: Micro scopic examination is performed on all urinalysis samples and only positive findings are reported. The test for blood on the chemical analytic portion of urinalysis may also be positive due to hemoglobinuria and myoglobinuria and if red blood cells are present they are quantified by microscopic examination. Performed By: #### 4 [id number] ####[facility] [address] [place], [place] [address] Abbi Choudhary M.D. [id number] Ketones Ql (U) Negative Normal Negative [facility] Comment on above: Order Comment: Micro scopic examination is performed on all urinalysis samples and only positive findings are reported. The test for blood on the chemical analytic portion of urinalysis may also be positive due to hemoglobinuria and myoglobinuria and if red blood cells are present they are quantified by microscopic examination. Performed By: #### 4 [id number] ####[facility] [address] [place], [place] [address] Abbi Choudhary M.D. [id number] Leukocyte esterase Test strip Ql (U) Negative Normal Negative [facility] Comment on above: Order Comment: Micro scopic examination is performed on all urinalysis samples and only positive findings are reported. The test for blood on the chemical analytic portion of urinalysis may also be positive due to hemoglobinuria and myoglobinuria and if red blood cells are present they are quantified by microscopic examination. Performed By: #### 4 [id number] ####[facility] [address] [place], [place] [address] Abbi Choudhary M.D. [id number] MUCUS, URINE Rare Normal None Seen, Rare [facility] Comment on above: Order Comment: Micro scopic examination is performed on all urinalysis samples and only positive findings are reported. The test for blood on the chemical analytic portion of urinalysis may also be positive due to hemoglobinuria and myoglobinuria and if red blood cells are present they are quantified by microscopic examination. Performed By: #### 4 [id number] ####[facility] [address] [place], [place] [address] Abbi Choudhary M.D. [id number] NITRITE, URINE Negative Normal Negative [facility] Comment on above: Order Comment: Micro scopic examination is performed on all urinalysis samples and only positive findings are reported. The test for blood on the chemical analytic portion of urinalysis may also be positive due to hemoglobinuria and myoglobinuria and if red blood cells are present they are quantified by microscopic examination. Performed By: #### 4 [id number] ####[facility] [address] [place], [place] [address] Abbi Choudhary M.D. [id number] pH (U) 5.0 [pH] Normal 5.0-7.0 [facility] Comment on above: Order Comment: Micro scopic examination is performed on all urinalysis samples and only positive findings are reported. The test for blood on the chemical analytic portion of urinalysis may also be positive due to hemoglobinuria and myoglobinuria and if red blood cells are present they are quantified by microscopic examination. Performed By: #### 4 [id number] ####[facility] [address] [place], [place] [address] Abbi Choudhary M.D. [id number] Protein (U) [Mass/Vol] 100 mg/dL Abnormal Negative [facility] Comment on above: Order Comment: Micro scopic examination is performed on all urinalysis samples and only positive findings are reported. The test for blood on the chemical analytic portion of urinalysis may also be positive due to hemoglobinuria and myoglobinuria and if red blood cells are present they are quantified by microscopic examination. Performed By: #### 4 [id number] ####[facility] [address] [place], [place] [address] Abbi Choudhary M.D. [id number] RBC LM.HPF (Urine sed) [#/Area] 1 /[HPF] Normal 0-3 [facility] Comment on above: Order Comment: Micro scopic examination is performed on all urinalysis samples and only positive findings are reported. The test for blood on the chemical analytic portion of urinalysis may also be positive due to hemoglobinuria and myoglobinuria and if red blood cells are present they are quantified by microscopic examination. Performed By: #### 4 [id number] ####[facility] [address] [place] [address] Abbi hCoudhary M.D. [id number] Specific gravity (U) [Rel density] 1.017 Normal 1.005-1.025 [facility] Comment on above: Order Comment: Micro scopic examination is performed on all urinalysis samples and only positive findings are reported. The test for blood on the chemical analytic portion of urinalysis may also be positive due to hemoglobinuria and myoglobinuria and if red blood cells are present they are quantified by microscopic examination. Performed By: #### 4 [id number] #### [facility] [address] [place] [address] Abbi Choudhary M.D. [id number] SQUAMOUS EPITHELIAL < Normal 0-4 [facility] Comment on above: Order Comment: Micro scopic examination is performed on all urinalysis samples and only positive findings are reported. The test for blood on the chemical analytic portion of urinalysis may also be positive due to hemoglobinuria and myoglobinuria and if red blood cells are present they are quantified by microscopic examination. Performed By: #### 4 [id number] ####[facility] [address] [address] Abbi Choudhary M.D. [id number] UROBILINOGEN, URINE <2.0 Normal <2.0 [facility] Comment on above: Order Comment: Micro scopic examination is performed on all urinalysis samples and only positive findings are reported. The test for blood on the chemical analytic portion of urinalysis may also be positive due to hemoglobinuria and myoglobinuria and if red blood cells are present they are quantified by microscopic examination. Performed By: #### 4 [id number] ####[facility] [address] [address] Abbi Choudhary M.D. [id number] WBC LM.HPF (Urine sed) [#/Area] 1 /[HPF] Normal 0-5 [facility] Comment on above: Order Comment: Micro scopic examination is performed on all urinalysis samples and only positive findings are reported. The test for blood on the chemical analytic portion of urinalysis may also be positive due to hemoglobinuria and myoglobinuria and if red blood cells are present they are quantified by microscopic examination. Performed By: #### 4 [id number] ####[facility] [address] [address] Abbi Choudhary M.D. [id number] UrinalysisOrdered By: Jessie Bae on 01-14-2024 Bacteria Auto Ql (U) None Seen None Se en /hpf [facility] Bilirubin Ql (U) Negative Negative [facility] th Clarity Refractometry automated (U) Clear Clear [facility] Color (U) Yellow Colorless, Yellow [facility] Epithelial cells.squamous Auto (Urine sed) [#/Area] [facility] Glucose Auto test strip (U) [Mass/Vol] 150 mg/dL Abnormal Negative [facility] Hemoglobin Auto test strip Ql (U) Negative Negative [facility] Interpretation and review of laboratory results Abnormal [facility] Ketones (U) [Mass/Vol] Negative Negative mg/dL [facility] Leukocyte esterase Auto test strip Ql (U) Negative Negative [facility] Mucus Auto (Urine sed) [#/Area] Rare None Seen, Rare /lpf [facility] Nitrite Auto test strip Ql (U) Negative Negative [facility] pH (U) 5.0 [pH] 5.0 - 7.0 [facility] Protein (U) [Mass/Vol] 100 mg/dL Abnormal Negative [facility] RBC Auto (Urine sed) [#/Area] 1 [facility] Specific gravity (U) [Rel density] 1.017 1.005 - 1.025 [facility] Urobilinogen (U) [Mass/Vol] mg/dL NINF - 2.0 mg/dL [facility] WBC Auto (Urine sed) [#/Area] 1 [facility] Microscopic examinat ion is performed on all urinalysis samples and only positive findings are reported. The test for blood on the chemical analytic portion of urinalysis may also be positive due to hemoglobinuria and myoglobinuria and if red blood cells are present they are quantified by microscopic examination. [facility] CBCon 01-13-2024 AUTO NRBC 0.0 % Normal [facility] Comment on above: Performed By: #### [id number] ####[facility] [address], [place] [address] Abbi Choudhary M.D. [id number] AUTO NRBC ABS COUNT 0.00 K/mcL Normal 0.00-0.00 [facility] Comment on above: Performed By: #### 4 [id number] ####[facility] [address], [place] [address] Abbi Choudhary M.D. [id number] Erythrocyte distribution width (RBC) [Ratio] 13.1 % Normal 11.6-14.8 [facility] Comment on above: Performed By: #### 4 [id number] ####[facility] [address] [address] Abbi Choudhary M.D. [id number] Hematocrit (Bld) [Volume fraction] 27.5 % Low 36.0-46.0 [facility] Comment on above: Performed By: #### 4 [id number] ####[facility] [address], [place] [address] Abbi Choudhary M.D. [id number] Hemoglobin (Bld) [Mass/Vol] 9.3 g/dL Low 12.0-16.0 [facility] Comment on above: Performed By: #### 4 [id number] ####[facility] [address], [place] [address] Abbi Choudhary M.D. [id number] MCH (RBC) [Entitic mass] 31.1 pg Normal 26.0-34.0 [facility] Comment on above: Performed By: #### 4 [id number] ####[facility] [address], [place] [address] Abbi Choudhary M.D. [id number] MCV (RBC) [Entitic vol] 92.0 fL Normal 80.0-100.0 [facility] Comment on above: Performed By: #### 4 [id number] ####[facility] [address], [place] [address] Abbi Choudhary M.D. [id number] MEAN CORPUSCULAR HEMOGLOBIN CONC 33.8 g/dL Normal 31.0-37.0 [facility] Comment on above: Performed By: #### 4 [id number] ####[facility] [address], [place] [address] Abbi Choudhary M.D. [id number] Platelet mean volume (Bld) [Entitic vol] 8.6 fL Low 9.4-12.4 [facility] Comment on above: Performed By: #### 4 [id number] ####[facility] [address] [address] Abbi Choudhary M.D. [id number] Platelets (Bld) [#/Vol] 238 10*3/uL Normal 150-400 [facility] Comment on above: Performed By: #### 4 [id number] ####[facility] [address], [place] [address] Abbi Choudhary M.D. [id number] RBC (Bld) [#/Vol] 2.99 10*6/uL Low 4.00-5.20 [facility] Comment on above: Performed By: #### 4 [id number] ####[facility] [address] [address] Abbi Choudhary M.D. [id number] WBC (Bld) [#/Vol] 7.09 10*3/uL Normal 4.50-11.00 [facility] Comment on above: Performed By: #### 4 [id number] ####[facility] [address], [place] [address] Abbi Choudhary M.D. [id number] CBC panel Auto (Bld)on 01-12 Erythrocyte distribution width (RBC) [Entitic vol] 13.1 % 11.6 - 14.8 % [facility] Hematocrit (Bld) [Volume fraction] 27.5 % Low 36.0 - 46.0 % [facility] Hemoglobin (Bld) [Mass/Vol] 9.3 g/dL Low 12.0 - 16.0 g/dL [facility] Interpretation and review of laboratory results Abnormal [facility] MCH (RBC) [Entitic mass] 31.1 pg 26.0 - 34.0 pg [facility] MCHC (RBC) [Mass/Vol] 33.8 g/dL 31.0 - 37.0 g/dL [facility] MCV (RBC) [Entitic vol] 92.0 fL 80.0 - 100.0 fL [facility] Nucleated RBC (Bld) [#/Vol] 0.00 10*3/uL [facility] Nucleated RBC/100 WBC (Bld) [Ratio] 0.0 % [facility] Platelet mean volume (Bld) [Entitic vol] 8.6 fL Low 9.4 - 12.4 fL [facility] Platelets (Bld) [#/Vol] 238 10*3/uL [facility] RBC (Bld) [#/Vol] 2.99 10*6/uL Low [facility] WBC (Bld) [#/Vol] 7.09 10*3/uL [facility] CONSULTon 01-13-2024 CONSULT Normal [facility] CT FOOT LEFT WITHOUT CONTRAS Ton 01-13-2024 CT FOOT LEFT WITHOUT CONTRAST Normal [facility] Comment on above: Order Comment: Injur y/Trauma or Illness?:Illness/OtherHow long have you had these symptoms (acute/chronic)?:AcuteReason for exam?:r.o OM left great toeType of Exam?:InitialAdditional signs and symptoms?:n CT Foot - left WO contraston 01-13-2024 1. There appears to be an ulcer along the distal aspect of the 1st toe with likely adjacent cellulitis. 2. No CT evidence of osteomyelitis in the 1st toe or remainder of the foot. 3. 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 No acute fracture is identified. There are corticated bony densities adjacent to the medial malleolus consistent with sequela of remote trauma. 4. 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 TECHNIQUE: Dose reduction techniques were achieved by using automated exposure control and/or adjustment of mA and/or kV according to patient size and/or use of iterative reconstruction technique. 2 mm thick axial images were obtained through the left foot and ankle without contrast. 2D reformatted images were created in the coronal and sagittal planes. FINDINGS: There is partial visualization of hardware in the distal fibula with chronic-appearing deformity of the distal fibula. The hardware is incompletely included on the [id number] for this study. There is cystic change and spurring along the distal fibula. The distal tibia appears intact. 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 Areas of corticated bony density along the posteroinferior margin of the medial malleolus are consistent with sequela of remote trauma. There is mild joint space narrowing and spurring involving the tibiotalar joint. There is an os trigonum. There is loss of soft tissues along the distal aspect of the 1st toe with findings suspicious for an ulcer in the distal aspect of the 1st toe. There is adjacent subcutaneous edema and soft tissue swelling suspicious for adjacent cellulitis. No well-defined abscess is evident. There is no CT evidence of osteomyelitis involving the phalanges of the 1st toe or elsewhere in the foot. No acute fracture is identified. The tarsometatarsal alignment is anatomic. No soft tissue gas is evident. MRI would be more sensitive than CT for evaluation of the soft tissues. [facility] Preston Rajan MD - 01/13/2024 EXAMINATION: CT FOOT LEFT WITHOUT CONTRAST HISTORY: ORDERING SYSTEM PROVIDED HISTORY: r.o OM left great toe, TECHNOLOGIST PROVIDED HISTORY: Illness/Other Reason for exam: r.o OM left great toe Encounter Type: Initial Additional signs and symptoms: n ORDERING SYSTEM PROVIDED DIAGNOSIS CODES: E11.621 Diabetic ulcer of toe of left foot associated with type 2 diabetes mellitus, limited to breakdown of skin (HCC) L97.521 Diabetic ulcer of toe of left foot associated with type 2 diabetes mellitus, limited to breakdown of skin (HCC) COMPARISON: Prior left foot x-rays from 01/12/2024. TECHNIQUE: Dose reduction techniques were achieved by using automated exposure control and/or adjustment of mA and/or kV according to patient size and/or use of iterative reconstruction technique. 2 mm thick axial images were obtained through the left foot and ankle without contrast. 2D reformatted images were created in the coronal and sagittal planes. FINDINGS: There is partial visualization of hardware in the distal fibula with chronic-appearing deformity of the distal fibula. The hardware is incompletely included on the [id number] for this study. There is cystic change and spurring along the distal fibula. The distal tibia appears intact. 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 Areas of corticated bony density along the posteroinferior margin of the medial malleolus are consistent with sequela of remote trauma. There is mild joint space narrowing and spurring involving the tibiotalar joint. There is an os trigonum. There is loss of soft tissues along the distal aspect of the 1st toe with findings suspicious for an ulcer in the distal aspect of the 1st toe. There is adjacent subcutaneous edema and soft tissue swelling suspicious for adjacent cellulitis. No well-defined abscess is evident. There is no CT evidence of osteomyelitis involving the phalanges of the 1st toe or elsewhere in the foot. No acute fracture is identified. The tarsometatarsal alignment is anatomic. No soft tissue gas is evident. MRI would be more sensitive than CT for evaluation of the soft tissues. IMPRESSION: 1. There appears to be an ulcer along the distal aspect of the 1st toe with likely adjacent cellulitis. 2. No CT evidence of osteomyelitis in the 1st toe or remainder of the foot. 3. 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 No acute fracture is identified. There are corticated bony densities adjacent to the medial malleolus consistent with sequela of remote trauma. 4. 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 TROY/xochitl Workstation ID: [id number] [facility] Radiology Study observation (narrative) [facility] CT Foot - left WO contrastOr dered By: Preston Rajan on 01-13-2024 [facility] Work Phone: ECG 12 Leadon 01-13-2024 Atrial Rate 97 BPM [facility] P [place] 55 degrees [facility] P-R Interval 190 ms [facility] Q-T Interval 346 ms [facility] QRS Duration 84 ms [facility] QTC Calculation (Bezet) 439 ms [facility] R [place] 18 degrees [facility] T [place] 27 degrees [facility] Ventricular Rate 97 BPM [facility] Normal sinus rhythm Possible Left atrial enlargement Confirmed by Monique Pillai MD ([id number]) on 01/13/2024 8:52:41 AM [facility] Glucose (Bld) [Mass/Vol]on 0 01-13-2024 Glucose [Mass/Vol] 177 mg/dL High 65 - 99 mg/dL [facility] Interpretation and review of laboratory results Abnormal [facility] Glucose [Mass/Vol] 119 mg/dL High 65 - 99 mg/dL [facility] Interpretation and review of laboratory results Abnormal [facility] Glucose [Mass/Vol] 116 mg/dL High 65 - 99 mg/dL [facility] Interpretation and review of laboratory results Abnormal [facility] Glucose [Mass/Vol] 103 mg/dL High 65 - 99 mg/dL [facility] Interpretation and review of laboratory results Abnormal [facility] Glucose [Mass/Vol] 122 mg/dL High 65 - 99 mg/dL [facility] Interpretation and review of laboratory results Abnormal [facility] Glucose [Mass/Vol] 177 mg/dL High [address] [place] [address] Comment on above: Performed By: #### 4 [id number] ####[facility] [address], [place] [address] Abbi Choudhary M.D. [id number] Glucose [Mass/Vol] 119 mg/dL [address] Comment on above: Performed By: #### 4 [id number] ####[facility] [address] [place], [place] [address] Abbi Choudhary M.D. [id number] Glucose [Mass/Vol] 116 mg/dL [address] Comment on above: Performed By: #### 4 [id number] ####[facility] [address] [place], [place] [address] Abbi Choudhary M.D. [id number] Glucose [Mass/Vol] 103 mg/dL [address] Comment on above: Performed By: #### 4 [id number] ####[facility] [address] [place], [place] [address] Abbi Choudhary M.D. [id number] Glucose [Mass/Vol] 122 mg/dL High 65-99 [facility] Comment on above: Performed By: #### 4 [id number] ####[facility] [address] [place], [place] [address] Abbi Choudhary M.D. [id number] RENAL FUNCTION PANELon 01-12 Albumin [Mass/Vol] 3.1 g/dL Low 3.2-5.2 [facility] Comment on above: Order Comment: [facility] has implemented the eGFR calculation approach that does not have a coefficient for race that conforms to the NKF-ASN Task Force Recommendations. Performed By: #### 4 6449 ####[facility] [address], [place] [address] Abbi Choudhary M.D. [id number] Anion gap [Moles/Vol] 16 mmol/L Normal 10-20 [facility] Comment on above: Order Comment: [facility] has implemented the eGFR calculation approach that does not have a coefficient for race that conforms to the NKF-ASN Task Force Recommendations. Performed By: #### 4 [id number] ####[facility] [address], [place] [address] Abbi Choudhary M.D. [id number] Calcium [Mass/Vol] 8.4 mg/dL Normal 8.4-10.2 [facility] Comment on above: Order Comment: [facility] has implemented the eGFR calculation approach that does not have a coefficient for race that conforms to the NKF-ASN Task Force Recommendations. Performed By: #### 4 6449 ####[facility] [address], [place] [address] Abbi Choudhary M.D. [id number] Chloride [Moles/Vol] 105 mmol/L Normal 98-108 [facility] Comment on above: Order Comment: [facility] has implemented the eGFR calculation approach that does not have a coefficient for race that conforms to the NKF-ASN Task Force Recommendations. Performed By: #### 4 [id number] ####[facility] [address], [place] [address] Abbi Choudhary M.D. [id number] Creatinine [Mass/Vol] 1.32 mg/dL High 0.40-1.10 [facility] Comment on above: Order Comment: [facility] has implemented the eGFR calculation approach that does not have a coefficient for race that conforms to the NKF-ASN Task Force Recommendations. Performed By: #### 4 [id number] ####[facility] [address], [place] [address] Abbi Choudhary M.D. [id number] EGFR 51 mL/min/1.73 m2 Low >=60 [facility] Comment on above: Order Comment: [facility] has implemented the eGFR calculation approach that does not have a coefficient for race that conforms to the NKF-ASN Task Force Recommendations. Result Comment: Lorie mated GFR was calculated using the 2020 CKD-EPI creatinine equation. Performed By: #### 4 [id number] ####[facility] [address], [place] [address] Abbi Choudhary M.D. [id number] Glucose [Mass/Vol] 157 mg/dL High 65-99 [facility] Comment on above: Order Comment: [facility] has implemented the eGFR calculation approach that does not have a coefficient for race that conforms to the NKF-ASN Task Force Recommendations. Performed By: #### 4 [id number] ####[facility] [address], [place] [address] Abbi Choudhary M.D. [id number] HCO3 (Bld) [Moles/Vol] 21 mmol/L Normal 21-32 [facility] Comment on above: Order Comment: [facility] has implemented the eGFR calculation approach that does not have a coefficient for race that conforms to the NKF-ASN Task Force Recommendations. Performed By: #### 4 [id number] ####[facility] [address], [place] [address] Abbi Choudhary M.D. [id number] Phosphate [Mass/Vol] 3.7 mg/dL Normal 2.7-4.5 [facility] Comment on above: Order Comment: [facility] has implemented the eGFR calculation approach that does not have a coefficient for race that conforms to the NKF-ASN Task Force Recommendations. Performed By: #### 4 [id number] ####[facility] [address], [place] [address] Abbi Choudhary M.D. [id number] Potassium [Moles/Vol] 4.1 mmol/L Normal 3.5-5.1 [facility] Comment on above: Order Comment: [facility] has implemented the eGFR calculation approach that does not have a coefficient for race that conforms to the NKF-ASN Task Force Recommendations. Result Comment: Slig htly Hemolyzed Performed By: #### 4 [id number] ####[facility] [address], [place] [address]Alisia Choudhary M.D. [id number] Sodium [Moles/Vol] 138 mmol/L Normal 135-145 [facility] Comment on above: Order Comment: [facility] has implemented the eGFR calculation approach that does not have a coefficient for race that conforms to the NKF-ASN Task Force Recommendations. Performed By: #### 4 [id number] ####[facility] [address], [place] [address] Abbi Choudhary M.D. [id number] Urea nitrogen [Mass/Vol] 27 mg/dL High 8-25 [facility] Comment on above: Order Comment: [facility] has implemented the eGFR calculation approach that does not have a coefficient for race that conforms to the NKF-ASN Task Force Recommendations. Performed By: #### 4 [id number] ####[facility] [address], [place] [address] Abbi Choudhary M.D. [id number] Urea nitrogen/Creatinine [Mass ratio] 20.5 mg/mg High 10.0-20.0 [facility] Comment on above: Order Comment: [facility] has implemented the eGFR calculation approach that does not have a coefficient for race that conforms to the NKF-ASN Task Force Recommendations. Performed By: #### 4 [id number] ####[facility] [address], [place] [address] Abbi Choudhary M.D. [id number] Renal function 2000 panelOrd ered By: Alberta Vo on 01-13-2024 Albumin [Mass/Vol] 3.1 g/dL Low 3.2 - 5.2 g/dL [facility] Anion gap [Moles/Vol] 16 mmol/L 10 - 2 0 mmol/L [facility] Calcium [Mass/Vol] 8.4 mg/dL 8.4 - 10. 2 mg/dL [facility] Chloride [Moles/Vol] 105 mmol/L 98 - 10 8 mmol/L [facility] Creatinine [Mass/Vol] 1.32 mg/dL High 0.40 - 1.10 mg/dL [facility] GFR/1.73 sq M.predicted CKD-EPI (S/P/Bld) [Vol rate/Area] 51 Low - PINF [facility] Comment on above: Estimated GFR was ca lculated using the 2020 CKD-EPI creatinine equation. Glucose [Mass/Vol] 157 mg/dL High 65 - 99 mg/dL [facility] HCO3 [Moles/Vol] 21 mmol/L 21 - 32 mmol/L [facility] Interpretation and review of laboratory results Abnormal [facility] Phosphate [Mass/Vol] 3.7 mg/dL 2.7 - 4 .5 mg/dL [facility] Potassium [Moles/Vol] 4.1 mmol/L 3.5 - 5.1 mmol/L [facility] Comment on above: Slightly Hemolyzed Sodium [Moles/Vol] 138 mmol/L 135 - 145 mmol/L [facility] Urea nitrogen [Mass/Vol] 27 mg/dL High 8 - 25 mg/dL [facility] Urea nitrogen/Creatinine [Mass ratio] 20.5 mg/mg High 10.0 - 20.0 [facility] has implemented the eGFR calculation approach that does not have a coefficient for race that conforms to the NKF-ASN Task Force Recommendations. [facility] BASIC METABOLIC PANELon 12-24 Anion gap [Moles/Vol] 14 mmol/L Normal 10-20 [facility] Comment on above: Order Comment: [facility] has implemented the eGFR calculation approach that does not have a coefficient for race that conforms to the NKF-ASN Task Force Recommendations. Performed By: #### 4 [id number] ####[facility] [address] [place], [place] [address] Abbi Choudhary M.D. [id number] Calcium [Mass/Vol] 9.0 mg/dL Normal 8.4-10.2 [facility] Comment on above: Order Comment: [facility] has implemented the eGFR calculation approach that does not have a coefficient for race that conforms to the NKF-ASN Task Force Recommendations. Performed By: #### [id number] ####[facility] [address] [place], [place] [address] Abbi Choudhary M.D. [id number] Chloride [Moles/Vol] 104 mmol/L Normal 98-108 [facility] Comment on above: Order Comment: [facility] has implemented the eGFR calculation approach that does not have a coefficient for race that conforms to the NKF-ASN Task Force Recommendations. Performed By: #### 4 [id number] ####[facility] [address] [place] [address] Abbi Choudhary M.D. [id number] Creatinine [Mass/Vol] 1.06 mg/dL Normal 0.40-1.10 [facility] Comment on above: Order Comment: [facility] has implemented the eGFR calculation approach that does not have a coefficient for race that conforms to the NKF-ASN Task Force Recommendations. Performed By: #### 4 [id number] ####[facility] [address] [place] [address] Abbi Choudhary M.D. [id number] EGFR 66 mL/min/1.73 m2 Normal >=60 [facility] Comment on above: Order Comment: [facility] has implemented the eGFR calculation approach that does not have a coefficient for race that conforms to the NKF-ASN Task Force Recommendations. Result Comment: Lorie mated GFR was calculated using the 2020 CKD-EPI creatinine equation. Performed By: #### 4 [id number] ####[facility] [address] [place] [address] Abbi Choudhary M.D. [id number] Glucose [Mass/Vol] 109 mg/dL High 65-99 [facility] Comment on above: Order Comment: [facility] has implemented the eGFR calculation approach that does not have a coefficient for race that conforms to the NKF-ASN Task Force Recommendations. Performed By: #### 4 [id number] ####[facility] [address] [place], [place] [address] Abbi Choudhary M.D. [id number] HCO3 (Bld) [Moles/Vol] 26 mmol/L Normal 21-32 [facility] Comment on above: Order Comment: [facility] has implemented the eGFR calculation approach that does not have a coefficient for race that conforms to the NKF-ASN Task Force Recommendations. Performed By: #### 4 [id number] ####[facility] [address] [place], [place] [address] Abbi Choudhary M.D. [id number] Potassium [Moles/Vol] 4.1 mmol/L Normal 3.5-5.1 [facility] Comment on above: Order Comment: [facility] has implemented the eGFR calculation approach that does not have a coefficient for race that conforms to the NKF-ASN Task Force Recommendations. Performed By: #### 4 [id number] ####[facility] [address] [place], [place] [address] Abbi Choudhary M.D. [id number] Sodium [Moles/Vol] 140 mmol/L Normal 135-145 [facility] Comment on above: Order Comment: [facility] has implemented the eGFR calculation approach that does not have a coefficient for race that conforms to the NKF-ASN Task Force Recommendations. Performed By: #### 4 [id number] ####[facility] [address] [place], [place] [address] Abbi Choudhary M.D. [id number] Urea nitrogen [Mass/Vol] 24 mg/dL Normal 8-25 [facility] Comment on above: Order Comment: [facility] has implemented the eGFR calculation approach that does not have a coefficient for race that conforms to the NKF-ASN Task Force Recommendations. Performed By: #### 4 6124 ####[facility] [address] [place], [place] [address] Abbi Choudhary M.D. [id number] Urea nitrogen/Creatinine [Mass ratio] 22.6 mg/mg High 10.0-20.0 [facility] Comment on above: Order Comment: [facility] has implemented the eGFR calculation approach that does not have a coefficient for race that conforms to the NKF-ASN Task Force Recommendations. Performed By: #### 4 [id number] ####[facility] [address] [place], [place] [address] Abbi Choudhary M.D. [id number] Basic metabolic 2000 panelon 01-12-2024 Anion gap [Moles/Vol] 14 mmol/L 10 - 2 0 mmol/L [facility] Calcium [Mass/Vol] 9.0 mg/dL 8.4 - 10. 2 mg/dL [facility] Chloride [Moles/Vol] 104 mmol/L 98 - 10 8 mmol/L [facility] Creatinine [Mass/Vol] 1.06 mg/dL 0.40 - 1.10 mg/dL [facility] GFR/1.73 sq M.predicted CKD-EPI (S/P/Bld) [Vol rate/Area] 66 - PINF [facility] Comment on above: Estimated GFR was ca lculated using the 2020 CKD-EPI creatinine equation. Glucose [Mass/Vol] 109 mg/dL High 65 - 99 mg/dL [facility] HCO3 [Moles/Vol] 26 mmol/L 21 - 32 mmol/L [facility] Interpretation and review of laboratory results Abnormal [facility] Potassium [Moles/Vol] 4.1 mmol/L 3.5 - 5.1 mmol/L [facility] Sodium [Moles/Vol] 140 mmol/L 135 - 145 mmol/L [facility] Urea nitrogen [Mass/Vol] 24 mg/dL 8 - 25 mg/dL [facility] Urea nitrogen/Creatinine [Mass ratio] 22.6 mg/mg High 10.0 - 20.0 [facility] has implemented the eGFR calculation approach that does not have a coefficient for race that conforms to the NKF-ASN Task Force Recommendations. [facility] CBC Auto Differentialon 12-24 Basophils (Bld) [#/Vol] 0.06 10*3/uL [facility] Basophils/100 WBC (Bld) 0.6 % [facility] Eosinophils (Bld) [#/Vol] 0.63 10*3/uL High [facility] Eosinophils/100 WBC (Bld) 6.5 % [facility] Erythrocyte distribution width (RBC) [Entitic vol] 12.9 % 11.6 - 14.8 % [facility] Hematocrit (Bld) [Volume fraction] 34.6 % Low 36.0 - 46.0 % [facility] Hemoglobin (Bld) [Mass/Vol] 11.7 g/dL Low 12.0 - 16.0 g/dL [facility] Immature granulocytes (Bld) [#/Vol] 0.05 10*3/uL [facility] Immature granulocytes/100 WBC (Bld) 0.50 % [facility] Comment on above: The IG parameter is the percentage of metamyelocytes, myelocytes and promyelocytes. An immature granulocyte count (IG) of 1% or more suggests the possibility of infection, an IG count of 3% is very likely related to an infection. Interpretation and review of laboratory results Abnormal [facility] Lymphocytes (Bld) [#/Vol] 1.77 10*3/uL [facility] Lymphocytes/100 WBC (Bld) 18.3 % [facility] MCH (RBC) [Entitic mass] 31.0 pg 26.0 - 34.0 pg [facility] MCHC (RBC) [Mass/Vol] 33.8 g/dL 31.0 - 37.0 g/dL [facility] MCV (RBC) [Entitic vol] 91.5 fL 80.0 - 100.0 fL [facility] Monocytes (Bld) [#/Vol] 0.47 10*3/uL [facility] Monocytes/100 WBC (Bld) 4.9 % [facility] Neutrophils (Bld) [#/Vol] 6.70 10*3/uL [facility] Neutrophils/100 WBC (Bld) 69.2 % [facility] Nucleated RBC (Bld) [#/Vol] 0.00 10*3/uL [facility] Nucleated RBC/100 WBC (Bld) [Ratio] 0.0 % [facility] Platelet mean volume (Bld) [Entitic vol] 9.1 fL Low 9.4 - 12.4 fL [facility] Platelets (Bld) [#/Vol] 291 10*3/uL [facility] RBC (Bld) [#/Vol] 3.78 10*6/uL Low [facility] WBC (Bld) [#/Vol] 9.68 10*3/uL [facility] CBC WITH AUTO DIFFERENTIALon 08-20-2024 AUTO NRBC 0.0 % Normal [facility] Comment on above: Performed By: #### L [id number] ####[facility] [address] [place], [place] [address] Abbi Choudhary M.D. [id number] AUTO NRBC ABS COUNT 0.00 K/mcL Normal 0.00-0.00 [facility] Comment on above: Performed By: #### L [id number] ####[facility] [address] [place] [address] Abbi Choudhary M.D. [id number] BASOPHILS ABSOLUTE COUNT 0.06 K/mcL Normal 0.00-0.30 [facility] Comment on above: Performed By: #### L [id number] ####[facility] [address] [place], [place] [address] Abbi Choudhary M.D. [id number] Basophils/100 WBC (Bld) 0.6 % Normal [facility] Comment on above: Performed By: #### L [id number] ####[facility] [address] [place] [address] Abbi Choudhary M.D. [id number] Eosinophils (Bld) [#/Vol] 0.63 10*3/uL High 0.00-0.50 [facility] Comment on above: Performed By: #### L [id number] ####[facility] [address] [place], [place] [address] Olivia NewtonDMaris [id number] Eosinophils/100 WBC (Bld) 6.5 % Normal [facility] Comment on above: Performed By: #### L [id number] ####[facility] [address] [place] [address] Olivia NewtonDMaris [id number] Erythrocyte distribution width (RBC) [Ratio] 12.9 % Normal 11.6-14.8 [facility] Comment on above: Performed By: #### L [id number] ####[facility] [address] [place], [place] [address] Abbi Choudhary M.D. [id number] Hematocrit (Bld) [Volume fraction] 34.6 % Low 36.0-46.0 [facility] Comment on above: Performed By: #### L [id number] ####[facility] [address] [place] [address] Abbi Choudhary M.D. [id number] Hemoglobin (Bld) [Mass/Vol] 11.7 g/dL Low 12.0-16.0 [facility] Comment on above: Performed By: #### L [id number] ####[facility] [address] [place] [address] Abbi Choudhary M.D. [id number] IG ABSOLUTE 0.05 K/mcL Normal 0.00-0.30 [facility] Comment on above: Performed By: #### L [id number] ####[facility] [address] [place] [address] Abbi Cohudhary M.D. [id number] IG PERCENT 0.50 % Normal [facility] Comment on above: Result Comment: The IG parameter is the percentage of metamyelocytes, myelocytes and promyelocytes. An immature granulocyte count (IG) of 1% or more suggests the possibility of infection, an IG count of 3% is very likely related to an infection. Performed By: #### L [id number] ####[facility] [address] [place] [address] Abbi Choudhary M.D. [id number] Lymphocytes (Bld) [#/Vol] 1.77 10*3/uL Normal 0.90-4.00 [facility] Comment on above: Performed By: #### L [id number] ####[facility] [address] [place] [address] Abbi Choudhary M.D. [id number] Lymphocytes/100 WBC (Bld) 18.3 % Normal [facility] Comment on above: Performed By: #### L [id number] ####[facility] [address] [place] [address] Abbi Choudhary M.D. [id number] MCH (RBC) [Entitic mass] 31.0 pg Normal 26.0-34.0 [facility] Comment on above: Performed By: #### L [id number] ####[facility] [address] [place], [place] [address] Abbi Choudhary M.D. [id number] MCV (RBC) [Entitic vol] 91.5 fL Normal 80.0-100.0 [facility] Comment on above: Performed By: #### L [id number] ####[facility] [address] [place], [place] [address] Abbi Choudhary M.D. [id number] MEAN CORPUSCULAR HEMOGLOBIN CONC 33.8 g/dL Normal 31.0-37.0 [facility] Comment on above: Performed By: #### L [id number] ####[facility] [address] [place] [address] Abbi Choudhary M.D. [id number] Monocytes (Bld) [#/Vol] 0.47 10*3/uL Normal 0.30-0.90 [facility] Comment on above: Performed By: #### L [id number] ####[facility] [address] [place] [address] bAbi Choudhary M.D. [id number] Monocytes/100 WBC (Bld) 4.9 % Normal [facility] Comment on above: Performed By: #### L [id number] ####[facility] [address] [place] [address] Abbi Choudhary M.D. [id number] NEUTROPHILS ABSOLUTE COUNT 6.70 K/mcL Normal 1.70-7.00 [facility] Comment on above: Performed By: #### L [id number] ####[facility] [address] [place] [address] Abbi Choudhary M.D. [id number] Neutrophils/100 WBC (Bld) 69.2 % Normal [facility] Comment on above: Performed By: #### L [id number] ####[facility] [address] [place] [address] Abbi Choudhary M.D. [id number] Platelet mean volume (Bld) [Entitic vol] 9.1 fL Low 9.4-12.4 [facility] Comment on above: Performed By: #### L [id number] ####[facility] [address] [place], [place] [address] Abbi Choudhary M.D. [id number] Platelets (Bld) [#/Vol] 291 10*3/uL Normal 150-400 [facility] Comment on above: Performed By: #### L [id number] ####[facility] [address] [place], [place] [address] Abbi Choudhary M.D. [id number] RBC (Bld) [#/Vol] 3.78 10*6/uL Low 4.00-5.20 [facility] Comment on above: Performed By: #### L [id number] ####[facility] [address] [place], [place] [address] Abbi Choudhary M.D. [id number] WBC (Bld) [#/Vol] 9.68 10*3/uL Normal 4.50-11.00 [facility] Comment on above: Performed By: #### L [id number] ####[facility] [address] [place], [place] [address] Abbi Choudhary M.D. [id number] CRP [Mass/Vol]on 01-12-2024 Interpretation and review of laboratory results Normal [facility] CRP, INFLAMMATIONon 01-12-20 CRP [Mass/Vol] 8.2 mg/L Normal 0.0-10.0 [facility] Comment on above: Performed By: #### 4 [id number] ####[facility] [address] [place], [place] [address] Abbi Choudhary M.D. [id number] CRP, Inflammationon 01-12-20 CRP [Mass/Vol] 8.2 mg/L 0.0 - 10.0 mg/L [facility] ED Prov Noteon 01-12-2024 ED Prov Note Normal [facility] ESR Westergren method (Bld) [Velocity]on 01-12-2024 ESR (Bld) [Velocity] 40 mm/h High [facility] Interpretation and review of laboratory results Abnormal [facility] Glucose (Bld) [Mass/Vol]on 0 01-12-2024 Glucose [Mass/Vol] 92 mg/dL 65 - 99 mg/dL [facility] Interpretation and review of laboratory results Normal [facility] Gold Topon 08-20-2024 Extra Tube Hold for add-ons. [place] Comment on above: Auto resulted. [facility] H AND Paulino 01-12-2024 H AND P Normal [facility] HEMOGLOBIN A1Con 01-12-2024 Glucose [Mass/Vol] 220 mg/dL High 74-114 [facility] Comment on above: Performed By: #### 4 [id number] ####[facility] [address] [place], [place] [address] Abbi Choudhary M.D. [id number] HbA1c (Bld) [Mass fraction] 9.3 % High 4.2-5.6 [facility] Comment on above: Performed By: #### 4 8202 ####[facility] [address] [place], [place] [address] Abbi Choudhary M.D. [id number] HbA1c (Bld) [Mass fraction]o n 01-12-2024 Average glucose Estimated from glycated hemoglobin (Bld) [Mass/Vol] 220 mg/dL High 74 - 114 mg/dL [facility] Interpretation and review of laboratory results Abnormal [facility] Hemoglobin A1con 01-12-2024 HbA1c (Bld) [Mass fraction] 9.3 % High 4.2 - 5.6 % [facility] No Panel Informationon 01-11 Extra Tube Hold for add-ons. [place] Comment on above: Auto resulted. [facility] POC GLUCOSE - RALSon 024 Glucose [Mass/Vol] 92 mg/dL Normal 65-99 [facility] Comment on above: Performed By: #### 4 [id number] ####[facility] [address] [place], [place] [address] Abbi Choudhary M.D. [id number] SEDIMENTATION RATEon 024 SEDIMENTATION RATE, ERYTHROCYTE 40 mm/hr High 0-20 [facility] Comment on above: Performed By: #### 4 6477 ####[facility] [address] [place], [place] [address] Abbi Choudhary M.D. [id number] XR FOOT LEFT 3+ VIEWS (STAND ILIA)on 01-12-2024 XR FOOT LEFT 3+ VIEWS (STANDARD) Normal [facility] Comment on above: Order Comment: Injur y/Trauma or Illness?:Illness/OtherHow long have you had these symptoms (acute/chronic)?:AcuteReason for exam?:Circumferential sloughing of skin of first great toe, poorly controlled diabetic, concern for osteomyelitis, possible recent abscess that was drained at homeHistory of cancer?:uSurgeries, chemotherapy, or radiation?:pacemakerType of Exam?:InitialAdditional signs and symptoms?:na XR Foot - left 3 Viewson Forefoot soft tissue swelling without an acute osseous abnormality. If there is high clinical concern for osteomyelitis, recommend MRI which is more sensitive. Workstation ID: [id number] [place] RIS EXAMINATION: XR FOOT LEFT 3+ VIEWS (STANDARD) 01/12/2024 3:26 pm HISTORY: ORDERING SYSTEM PROVIDED HISTORY: Circumferential sloughing of skin of first great toe, poorly controlled diabetic, concern for osteomyelitis, possible recent abscess that was drained at home, TECHNOLOGIST PROVIDED HISTORY: Illness/Other Reason for exam: Circumferential sloughing of skin of first great toe, poorly controlled diabetic, concern for osteomyelitis, possible recent abscess that was drained at home Cancer History: u Surgery, RadiationHistory: pacemaker Encounter Type: Initial Additional signs and symptoms: na ORDERING SYSTEM PROVIDED DIAGNOSIS CODES: COMPARISON: Left foot radiographs dated 01/09/2024. FINDINGS: Three views. No fractures. 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 Distal fibular ORIF, partially imaged. No aggressive osseous lesions or bony demineralization. Forefoot soft tissue swelling. [employer] Vic Mac, DO - 01/12/2024 EXAMINATION: XR FOOT LEFT 3+ VIEWS (STANDARD) 01/12/2024 3:26 pm HISTORY: ORDERING SYSTEM PROVIDED HISTORY: Circumferential sloughing of skin of first great toe, poorly controlled diabetic, concern for osteomyelitis, possible recent abscess that was drained at home, TECHNOLOGIST PROVIDED HISTORY: Illness/Other Reason for exam: Circumferential sloughing of skin of first great toe, poorly controlled diabetic, concern for osteomyelitis, possible recent abscess that was drained at home Cancer History: u Surgery, RadiationHistory: pacemaker Encounter Type: Initial Additional signs and symptoms: na ORDERING SYSTEM PROVIDED DIAGNOSIS CODES: COMPARISON: Left foot radiographs dated 01/09/2024. FINDINGS: Three views. No fractures. 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 Distal fibular ORIF, partially imaged. No aggressive osseous lesions or bony demineralization. Forefoot soft tissue swelling. IMPRESSION: Forefoot soft tissue swelling without an acute osseous abnormality. If there is high clinical concern for osteomyelitis, recommend MRI which is more sensitive. Workstation ID: [id number] [facility] Radiology Study observation (narrative) [facility] XR Foot - left 3 ViewsOrdere d By: Vic Mac on 01-12-2024 [facility] Work Phone: ED Prov Noteon 01-10-2024 ED Prov Note Normal [facility] XR FOOT LEFT 3+ VIEWS (STAND ILIA)on 01-09-2024 XR FOOT LEFT 3+ VIEWS (STANDARD) Normal [facility] Comment on above: Order Comment: Injur y/Trauma or Illness?:Illness/OtherHow long have you had these symptoms (acute/chronic)?:AcuteReason for exam?:1st toe painHistory of cancer?:uSurgeries, chemotherapy, or radiation?:pacemakerType of Exam?:InitialAdditional signs and symptoms?:1st toe pain BASIC METABOLIC PANELon 11-22 Anion gap [Moles/Vol] 15 mmol/L Normal 10-20 [facility] Comment on above: Order Comment: [facility] has implemented the eGFR calculation approach that does not have a coefficient for race that conforms to the NKF-ASN Task Force Recommendations. Performed By: #### 4 [id number] ####[facility] [address] [place], [place] [address] Abbi Choudhary M.D. [id number] Calcium [Mass/Vol] 9.0 mg/dL Normal 8.4-10.2 [facility] Comment on above: Order Comment: [facility] has implemented the eGFR calculation approach that does not have a coefficient for race that conforms to the NKF-ASN Task Force Recommendations. Performed By: #### 4 6124 ####[facility] [address] [place], [place] [address] Abbi Choudhary M.D. [id number] Chloride [Moles/Vol] 100 mmol/L Normal 98-108 [facility] Comment on above: Order Comment: [facility] has implemented the eGFR calculation approach that does not have a coefficient for race that conforms to the NKF-ASN Task Force Recommendations. Performed By: #### 4 [id number] ####[facility] [address] [place], [place] [address] Abbi Choudhary M.D. [id number] Creatinine [Mass/Vol] 1.27 mg/dL High 0.40-1.10 [facility] Comment on above: Order Comment: [facility] has implemented the eGFR calculation approach that does not have a coefficient for race that conforms to the NKF-ASN Task Force Recommendations. Performed By: #### 4 6124 ####[facility] [address] [place] [address] Abbi Choudhary M.D. [id number] EGFR 53 mL/min/1.73 m2 Low >=60 [facility] Comment on above: Order Comment: [facility] has implemented the eGFR calculation approach that does not have a coefficient for race that conforms to the NKF-ASN Task Force Recommendations. Result Comment: Lorie mated GFR was calculated using the 2020 CKD-EPI creatinine equation. Performed By: #### 4 [id number] ####[facility] [address] [place], [place] [address] Abbi Choudhary M.D. [id number] Glucose [Mass/Vol] 487 mg/dL Off scale high 65-99 [facility] Comment on above: Order Comment: [facility] has implemented the eGFR calculation approach that does not have a coefficient for race that conforms to the NKF-ASN Task Force Recommendations. Performed By: #### 4 6124 ####[facility] [address] [place], [place] [address] Abbi Choudhary M.D. [id number] HCO3 (Bld) [Moles/Vol] 23 mmol/L Normal 21-32 [facility] Comment on above: Order Comment: [facility] has implemented the eGFR calculation approach that does not have a coefficient for race that conforms to the NKF-ASN Task Force Recommendations. Performed By: #### 4 6124 ####[facility] [address] [place] [id number] Abbi Choudhary M.D. [id number] Potassium [Moles/Vol] 5.0 mmol/L Normal 3.5-5.1 [facility] Comment on above: Order Comment: [facility] has implemented the eGFR calculation approach that does not have a coefficient for race that conforms to the NKF-ASN Task Force Recommendations. Performed By: #### 4 6124 ####[facility] [address] [place], [place] [address] Abbi Choudhary M.D. [id number] Sodium [Moles/Vol] 133 mmol/L Low 135-145 [facility] Comment on above: Order Comment: [facility] has implemented the eGFR calculation approach that does not have a coefficient for race that conforms to the NKF-ASN Task Force Recommendations. Performed By: #### 4 6124 ####[facility] [address] [place], [place] [address] Abbi Choudhary M.D. [id number] Urea nitrogen [Mass/Vol] 30 mg/dL High 8-25 [facility] Comment on above: Order Comment: [facility] has implemented the eGFR calculation approach that does not have a coefficient for race that conforms to the NKF-ASN Task Force Recommendations. Performed By: #### 4 6124 ####[facility] [address] [place], [place] [address] Abbi Choudhary M.D. [id number] Urea nitrogen/Creatinine [Mass ratio] 23.6 mg/mg High 10.0-20.0 [facility] Comment on above: Order Comment: [facility] has implemented the eGFR calculation approach that does not have a coefficient for race that conforms to the NKF-ASN Task Force Recommendations. Performed By: #### 4 6124 ####[facility] [address] [place], [place] [address] Abbi Choudhary M.D. [id number] CBC WITH AUTO DIFFERENTIALon 12-07-2023 AUTO NRBC 0.0 % Normal [facility] Comment on above: Performed By: #### L [id number] ####[facility] [address] [place], [place] [address] Abbi Choudhary M.D. [id number] AUTO NRBC ABS COUNT 0.00 K/mcL Normal 0.00-0.00 [facility] Comment on above: Performed By: #### L [id number] ####[facility] [address] [place] [address] Abbi Choudhary M.D. [id number] BASOPHILS ABSOLUTE COUNT 0.08 K/mcL Normal 0.00-0.30 [facility] Comment on above: Performed By: #### L [id number] ####[facility] [address] [place] [address] Abbi Choudhary M.D. [id number] Basophils/100 WBC (Bld) 0.8 % Normal [facility] Comment on above: Performed By: #### L [id number] ####[facility] [address] [place] [address] Abbi Choudhary M.D. [id number] Eosinophils (Bld) [#/Vol] 0.26 10*3/uL Normal 0.00-0.50 [facility] Comment on above: Performed By: #### L [id number] ####[facility] [address] [place] [address] Abbi Choudhary M.D. [id number] Eosinophils/100 WBC (Bld) 2.7 % Normal [facility] Comment on above: Performed By: #### L [id number] ####[facility] [address] [place] [address] Abbi Choudhary M.D. [id number] Erythrocyte distribution width (RBC) [Ratio] 12.6 % Normal 11.6-14.8 [facility] Comment on above: Performed By: #### L [id number] ####[facility] [address] [address] Abbi Choudhary M.D. [id number] Hematocrit (Bld) [Volume fraction] 33.1 % Low 36.0-46.0 [facility] Comment on above: Performed By: #### L [id number] ####[facility] [address] [address] Abbi Choudhary M.D. [id number] Hemoglobin (Bld) [Mass/Vol] 11.2 g/dL Low 12.0-16.0 [facility] Comment on above: Performed By: #### L [id number] ####[facility] [address], [place] [address] Abbi Choudhary M.D. [id number] IG ABSOLUTE 0.05 K/mcL Normal 0.00-0.30 [facility] Comment on above: Performed By: #### L [id number] ####[facility] [address], [place] [address] Abbi Choudhary M.D. [id number] IG PERCENT 0.50 % Normal [facility] Comment on above: Result Comment: The IG parameter is the percentage of metamyelocytes, myelocytes and promyelocytes. An immature granulocyte count (IG) of 1% or more suggests the possibility of infection, an IG count of 3% is very likely related to an infection. Performed By: #### L [id number] ####[facility] [address] [address] Abbi Choudhary M.D. [id number] Lymphocytes (Bld) [#/Vol] 2.06 10*3/uL Normal 0.90-4.00 [facility] Comment on above: Performed By: #### L [id number] ####[facility] [address], [place] [address] Abbi Choudhary M.D. [id number] Lymphocytes/100 WBC (Bld) 21.3 % Normal [facility] Comment on above: Performed By: #### L [id number] ####[facility] [address], [place] [address] Abbi Choudhary M.D. [id number] MCH (RBC) [Entitic mass] 30.5 pg Normal 26.0-34.0 [facility] Comment on above: Performed By: #### L [id number] ####[facility] [address], [place] [address] Abbi Choudhary M.D. [id number] MCV (RBC) [Entitic vol] 90.2 fL Normal 80.0-100.0 [facility] Comment on above: Performed By: #### L [id number] ####[facility] [address], [place] [address] Abbi Choudhary M.D. [id number] MEAN CORPUSCULAR HEMOGLOBIN CONC 33.8 g/dL Normal 31.0-37.0 [facility] Comment on above: Performed By: #### L [id number] ####[facility] [address], [place] [address] Abbi Choudhary M.D. [id number] Monocytes (Bld) [#/Vol] 0.54 10*3/uL Normal 0.30-0.90 [facility] Comment on above: Performed By: #### L [id number] ####[facility] [address] [place], [place] [address] Abbi Choudhary M.D. [id number] Monocytes/100 WBC (Bld) 5.6 % Normal [facility] Comment on above: Performed By: #### L [id number] ####[facility] [address], [place] [address] Abbi Choudhary M.D. [id number] NEUTROPHILS ABSOLUTE COUNT 6.67 K/mcL Normal 1.70-7.00 [facility] Comment on above: Performed By: #### L [id number] ####[facility] [address], [place] [address] Abbi Choudhary M.D. [id number] Neutrophils/100 WBC (Bld) 69.1 % Normal [facility] Comment on above: Performed By: #### L [id number] ####[facility] [address], [place] [address] Abbi Choudhary M.D. [id number] Platelet mean volume (Bld) [Entitic vol] 8.9 fL Low 9.4-12.4 [facility] Comment on above: Performed By: #### L [id number] ####[facility] [address], [place] [address] Abbi Choudhary M.D. [id number] Platelets (Bld) [#/Vol] 271 10*3/uL Normal 150-400 [facility] Comment on above: Performed By: #### L [id number] ####[facility] [address] [place], [place] [address] Abbi Choudhary M.D. [id number] RBC (Bld) [#/Vol] 3.67 10*6/uL Low 4.00-5.20 [facility] Comment on above: Performed By: #### L [id number] ####[facility] [address], [place] [address] Abbi Choudhary M.D. [id number] WBC (Bld) [#/Vol] 9.66 10*3/uL Normal 4.50-11.00 [facility] Comment on above: Performed By: #### L [id number] ####[facility] [address] [place], [place] [address] Abbi Choudhary M.D. [id number] D-DIMER, QUANTITATIVEon 11-22 D-DIMER QUANTITATIVE 0.42 mcg/mL FEU Normal 0.27-0.49 [facility] Comment on above: Order Comment: A D-d pepe concentration of <0.5 micrograms per milliliter FEU is considered a low probability for pulmonary embolus (PE) and deep venous thrombosis (DVT). Results of this test should always be interpreted in conjunction with the patient's medical history,clinical presentation, and other findings. Clinical diagnosis should not be based on the results of the D-dimer alone. Performed By: #### 4 [id number] ####[facility] [address], [place] [address] Abbi Choudhary M.D. [id number] ED Prov Noteon 12-07-2023 ED Prov Note Normal [facility] NT PRO BNPon 12-07-2023 Natriuretic peptide B (Bld) [Mass/Vol] 124 pg/mL Normal 0-300 [facility] Comment on above: Order Comment: Pride Study Cut-offsRule In:< /= 50 Years >450 pg/mL51 Years - 75 Years >900 pg/mL76 Years - 99 Years >1800 pg/mLRule Out:All patients <300 pg/mL Performed By: #### 4 [id number] ####[facility] [address] [place], [place] [address] Abbi Choudhary M.D. [id number] POC GLUCOSE - RALSon 024 Glucose [Mass/Vol] 339 mg/dL High [address] Comment on above: Performed By: #### 4 6932 ####[facility] [address] [place], [place] [address] Abbi Choudhary M.D. [id number] Glucose [Mass/Vol] 454 mg/dL Off scale high 65-99 [facility] Comment on above: Order Comment: Criti marquita result acted upon time of test. Test performed at bedside. Performed By: #### 4 [id number] ####[facility] [address] [place], [place] [address] Abbi Choudhary M.D. [id number] TROPONINon 12-07-2023 TROPONIN T DELTA CHANGE INTERPRETATION Delta troponin requires at least 3 hours between collections. [facility] Comment on above: Performed By: #### 4 6608 ####[facility] [address] [place], [place] [address] Abbi Choudhary M.D. [id number] TROPONIN T NG/L 17 ng/L Off scale high <=14 [facility] Comment on above: Performed By: #### 4 [id number] ####[facility] [address], [place] [address] Abbi Choudhary M.D. [id number] BASELINE TROPONIN T NG/L 18 ng/L Off scale high <=14 [facility] Comment on above: Performed By: #### 4 6608 ####[facility] [address], [place] [address] Abbi Choudhary M.D. [id number] TROPONIN T INTERPRETATION Possible acute cardiac injury. [facility] Comment on above: Performed By: #### 4 6608 ####[facility] [address], [place] [address] Abbi Choudhary M.D. [id number] XR CHEST PA/APon 12-07-2023 XR CHEST PA/AP [facility] Comment on above: Order Comment: Injur y/Trauma or Illness?:Illness/OtherHow long have you had these symptoms (acute/chronic)?:AcuteReason for exam?:cpHistory of cancer?:uSurgeries, chemotherapy, or radiation?:pacemakerType of Exam?:InitialAdditional signs and symptoms?:Pt arrived via ems from home with c/o 7/10 mid sternal chest pain that started 2 hours ago. COVID-19, MOLECULARon 2023 SARS-CoV-2 (COVID-19) Ab IA Ql Not detected Normal Not Detected [facility] Comment on above: Result Comment: Test ing was performed using the [employer] ID NOW COVID-19 assay on the ID NOW platform. This test has not been approved for use in asymptomatic patients and its performance in this patient population has not been evaluated. Negative results do not rule out the presence of SARS-CoV-2/COVID-19. COVID-19, Molecularon 2023 SARS-CoV-2 (COVID-19) RdRp gene EBONIE+probe Ql (Resp) Not detected Not Detected [facility] Comment on above: Testing was performe d using the [employer] ID NOW COVID-19 assay on the ID NOW platform. This test has not been approved for use in asymptomatic patients and its performance in this patient population has not been evaluated. Negative results do not rule out the presence of SARS-CoV-2/COVID-19. POC Influenza Aon 12-01-2023 FLUAV Ag Ql (Nph) Negative Negative [facility] POC Influenza Bon 12-01-2023 FLUBV Ag Ql (Nph) Negative Negative [facility] SARS-CoV-2 (COVID-19) RdRp g braden EBONIE+probe Ql (Resp)on 12-01-2023 Interpretation and review of laboratory results Normal [facility] Eye - left US 2[facility] Radiology Study observation (narrative) [facility] FUNDUS PHOTOGRAPHY-OUon 10-23 FUNDUS PHOTOGRAPHY-OU Right Eye Clear. Disc findings include normal observations. Vessel findings include A/V crossing changes, arteriole narrowing. Macula findings include microaneurysms, dot/blot hemorrhages. Cotton Wool Spots, Dot/Blot Hemorrhages. Interval change is baseline. Left Eye Vitreous Hemorrhage. Interval change is baseline. Normal [facility] Right Eye Clear. Disc findings include normal observations. Vessel findings include A/V crossing changes, arteriole narrowing. Macula findings include microaneurysms, dot/blot hemorrhages. Cotton Wool Spots, Dot/Blot Hemorrhages. Interval change is baseline. Left Eye Vitreous Hemorrhage. Interval change is baseline. RADIOLOGY [facility] Radiology Study observation (narrative) [facility] BASIC METABOLIC PANELon 10-23 Anion gap [Moles/Vol] 14 mmol/L Normal 10-20 [facility] Comment on above: Order Comment: [facility] has implemented the eGFR calculation approach that does not have a coefficient for race that conforms to the NKF-ASN Task Force Recommendations. Performed By: #### 4 [id number] ####[facility] [address] [address] Abbi Choudhary M.D. [id number] Calcium [Mass/Vol] 9.3 mg/dL Normal 8.4-10.2 [facility] Comment on above: Order Comment: [facility] has implemented the eGFR calculation approach that does not have a coefficient for race that conforms to the NKF-ASN Task Force Recommendations. Performed By: #### 4 6124 ####[facility] [address] [address] Abbi Choudhary M.D. [id number] Chloride [Moles/Vol] 102 mmol/L Normal 98-108 [facility] Comment on above: Order Comment: [facility] has implemented the eGFR calculation approach that does not have a coefficient for race that conforms to the NKF-ASN Task Force Recommendations. Performed By: #### 4 6124 ####[facility] [address], [place] [address] Abbi Choudhary M.D. [id number] Creatinine [Mass/Vol] 1.29 mg/dL High 0.40-1.10 [facility] Comment on above: Order Comment: [facility] has implemented the eGFR calculation approach that does not have a coefficient for race that conforms to the NKF-ASN Task Force Recommendations. Performed By: #### 4 6124 ####[facility] [address] [place], [place] [address] Abbi Choudhary M.D. [id number] EGFR 52 mL/min/1.73 m2 Low >=60 [facility] Comment on above: Order Comment: [facility] has implemented the eGFR calculation approach that does not have a coefficient for race that conforms to the NKF-ASN Task Force Recommendations. Result Comment: Lorie mated GFR was calculated using the 2020 CKD-EPI creatinine equation. Performed By: #### 4 6124 ####[facility] [address], [place] [address] Abbi Choudhary M.D. [id number] Glucose [Mass/Vol] 246 mg/dL High 65-99 [facility] Comment on above: Order Comment: [facility] has implemented the eGFR calculation approach that does not have a coefficient for race that conforms to the NKF-ASN Task Force Recommendations. Performed By: #### 4 6124 ####[facility] [address] [address] Abbi Choudhary M.D. [id number] HCO3 (Bld) [Moles/Vol] 25 mmol/L Normal 21-32 [facility] Comment on above: Order Comment: [facility] has implemented the eGFR calculation approach that does not have a coefficient for race that conforms to the NKF-ASN Task Force Recommendations. Performed By: #### 4 6124 ####[facility] [address], [place] [address] Abbi Choudhary M.D. [id number] Potassium [Moles/Vol] 4.3 mmol/L Normal 3.5-5.1 [facility] Comment on above: Order Comment: [facility] has implemented the eGFR calculation approach that does not have a coefficient for race that conforms to the NKF-ASN Task Force Recommendations. Performed By: #### 4 6124 ####[facility] [address], [place] [address] Abbi Choudhary M.D. [id number] Sodium [Moles/Vol] 137 mmol/L Normal 135-145 [facility] Comment on above: Order Comment: [facility] has implemented the eGFR calculation approach that does not have a coefficient for race that conforms to the NKF-ASN Task Force Recommendations. Performed By: #### 4 6124 ####[facility] [address], [place] [address] Abbi Choudhary M.D. [id number] Urea nitrogen [Mass/Vol] 26 mg/dL High 8-25 [facility] Comment on above: Order Comment: [facility] has implemented the eGFR calculation approach that does not have a coefficient for race that conforms to the NKF-ASN Task Force Recommendations. Performed By: #### 4 6124 ####[facility] [address], [place] [address] Abbi Choudhary M.D. [id number] Urea nitrogen/Creatinine [Mass ratio] 20.2 mg/mg High 10.0-20.0 [facility] Comment on above: Order Comment: [facility] has implemented the eGFR calculation approach that does not have a coefficient for race that conforms to the NKF-ASN Task Force Recommendations. Performed By: #### 4 6124 ####[facility] [address] [place], [place] [address] Abbi Choudhary M.D. [id number] CBC WITH AUTO DIFFERENTIALon 11-07-2023 AUTO NRBC 0.0 % [facility] Comment on above: Performed By: #### L [id number] ####[facility] [address], [place] [address] Abbi Choudhary M.D. [id number] AUTO NRBC ABS COUNT 0.00 K/mcL Normal 0.00-0.00 [facility] Comment on above: Performed By: #### L [id number] ####[facility] [address], [place] [address] Abbi Choudhary M.D. [id number] BASOPHILS ABSOLUTE COUNT 0.10 K/mcL Normal 0.00-0.30 [facility] Comment on above: Performed By: #### L [id number] ####[facility] [address], [place] [address] Abbi Choudhary M.D. [id number] Basophils/100 WBC (Bld) 0.9 % [facility] Comment on above: Performed By: #### L [id number] ####[facility] [address], [place] [address] Abbi Choudhary M.D. [id number] Eosinophils (Bld) [#/Vol] 0.39 10*3/uL Normal 0.00-0.50 [facility] Comment on above: Performed By: #### L [id number] ####[facility] [address] [address] Abbi Choudhary M.D. [id number] Eosinophils/100 WBC (Bld) 3.7 % Normal [facility] Comment on above: Performed By: #### L [id number] ####[facility] [address] [address] Abbi Choudhary M.D. [id number] Erythrocyte distribution width (RBC) [Ratio] 13.1 % Normal 11.6-14.8 [facility] Comment on above: Performed By: #### L [id number] ####[facility] [address] [address] Abbi Choudhary M.D. [id number] Hematocrit (Bld) [Volume fraction] 34.1 % Low 36.0-46.0 [facility] Comment on above: Performed By: #### L [id number] ####[facility] [address] [address] Abbi Choudhary M.D. [id number] Hemoglobin (Bld) [Mass/Vol] 11.5 g/dL Low 12.0-16.0 [facility] Comment on above: Performed By: #### L [id number] ####[facility] [address], [place] [address] Abbi Choudhary M.D. [id number] IG ABSOLUTE 0.04 K/mcL Normal 0.00-0.30 [facility] Comment on above: Performed By: #### L [id number] ####[facility] [address] [address] Abbi Choudhary M.D. [id number] IG PERCENT 0.40 % Normal [facility] Comment on above: Result Comment: The IG parameter is the percentage of metamyelocytes, myelocytes and promyelocytes. An immature granulocyte count (IG) of 1% or more suggests the possibility of infection, an IG count of 3% is very likely related to an infection. Performed By: #### L [id number] ####[facility] [address] [address] Abbi Choudhary M.D. [id number] Lymphocytes (Bld) [#/Vol] 2.04 10*3/uL Normal 0.90-4.00 [facility] Comment on above: Performed By: #### L [id number] ####[facility] [address] [address] Abbi Choudhary M.D. [id number] Lymphocytes/100 WBC (Bld) 19.1 % Normal [facility] Comment on above: Performed By: #### L [id number] ####[facility] [address] [address] Abbi Choudhary M.D. [id number] MCH (RBC) [Entitic mass] 30.5 pg Normal 26.0-34.0 [facility] Comment on above: Performed By: #### L [id number] ####[facility] [address] [address] Abbi Choudhary M.D. [id number] MCV (RBC) [Entitic vol] 90.5 fL Normal 80.0-100.0 [facility] Comment on above: Performed By: #### L [id number] ####[facility] [address] [address] Abbi Choudhary M.D. [id number] MEAN CORPUSCULAR HEMOGLOBIN CONC 33.7 g/dL Normal 31.0-37.0 [facility] Comment on above: Performed By: #### L [id number] ####[facility] [address] [address] Abbi Choudhary M.D. [id number] Monocytes (Bld) [#/Vol] 0.49 10*3/uL Normal 0.30-0.90 [facility] Comment on above: Performed By: #### L [id number] ####[facility] [address], [place] [address]Alisia Choudhary M.D. [id number] Monocytes/100 WBC (Bld) 4.6 % Normal [facility] Comment on above: Performed By: #### L [id number] ####[facility] [address] [address] Abbi Choudhary M.D. [id number] NEUTROPHILS ABSOLUTE COUNT 7.60 K/mcL High 1.70-7.00 [facility] Comment on above: Performed By: #### L [id number] ####[facility] [address] [address] Abbi Choudhary M.D. [id number] Neutrophils/100 WBC (Bld) 71.3 % Normal [facility] Comment on above: Performed By: #### L [id number] ####[facility] [address] [address] Abbi Choudhary M.D. [id number] Platelet mean volume (Bld) [Entitic vol] 8.7 fL Low 9.4-12.4 [facility] Comment on above: Performed By: #### L [id number] ####[facility] [address] [address] Abbi Choudhary M.D. [id number] Platelets (Bld) [#/Vol] 284 10*3/uL Normal 150-400 [facility] Comment on above: Performed By: #### L [id number] ####[facility] [address] [address] Abbi Choudhary M.D. [id number] RBC (Bld) [#/Vol] 3.77 10*6/uL Low 4.00-5.20 [facility] Comment on above: Performed By: #### L [id number] ####[facility] [address] [address] Abbi Choudhary M.D. [id number] WBC (Bld) [#/Vol] 10.66 10*3/uL Normal 4.50-11.00 [facility] Comment on above: Performed By: #### L [id number] ####[facility] [address], [place] [address] Abbi Choudhary M.D. [id number] CT ANGIOGRAM HEAD NECKon CT ANGIOGRAM HEAD NECK Normal [facility] Comment on above: Order Comment: Injur y/Trauma or Illness?:Illness/OtherHow long have you had these symptoms (acute/chronic)?:AcuteReason for exam?:Diplopia, Vision loss, monocular, Headache, vision loss to left eye, double vision on the right.Type of Exam?:InitialAdditional signs and symptoms?:Diplopia, Vision loss, monocular, Headache, vision loss to left eye, double vision on the right. ED Prov Noteon 11-07-2023 ED Prov Note Normal [facility] Coding Summary.on 10-29-2023 Coding Summary. [id number]#1.00TIFF [facility] Coding Summary. [id number]#1.00TIFF Normal [facility] Comment on above: Other Comment: repla sarah with updated mock Coding Summary.on 10-28-2023 Coding Summary. [id number]#1.00TIFF [facility] Comment on above: Other Comment: wrong pt. BASIC METABOLIC PANELon 09-23 Anion gap [Moles/Vol] 18 mmol/L Normal 10-20 [facility] Comment on above: Order Comment: [facility] has implemented the eGFR calculation approach that does not have a coefficient for race that conforms to the NKF-ASN Task Force Recommendations. Performed By: #### 4 6124 ####[facility] [address], [place] [address] Abbi Choudhary M.D. [id number] Calcium [Mass/Vol] 9.5 mg/dL Normal 8.4-10.2 [facility] Comment on above: Order Comment: [facility] has implemented the eGFR calculation approach that does not have a coefficient for race that conforms to the NKF-ASN Task Force Recommendations. Performed By: #### 4 6124 ####[facility] [address] [place], [place] [address] Abbi Choudhary M.D. [id number] Chloride [Moles/Vol] 102 mmol/L Normal 98-108 [facility] Comment on above: Order Comment: [facility] has implemented the eGFR calculation approach that does not have a coefficient for race that conforms to the NKF-ASN Task Force Recommendations. Performed By: #### 4 6124 ####[facility] [address], [place] [address] Abbi Choudhary M.D. [id number] Creatinine [Mass/Vol] 1.05 mg/dL Normal 0.40-1.10 [facility] Comment on above: Order Comment: [facility] has implemented the eGFR calculation approach that does not have a coefficient for race that conforms to the NKF-ASN Task Force Recommendations. Performed By: #### 4 6124 ####[facility] [address], [place] [address] Abbi Choudhary M.D. [id number] EGFR 66 mL/min/1.73 m2 Normal >=60 [facility] Comment on above: Order Comment: [facility] has implemented the eGFR calculation approach that does not have a coefficient for race that conforms to the NKF-ASN Task Force Recommendations. Result Comment: Lorie mated GFR was calculated using the 2020 CKD-EPI creatinine equation. Performed By: #### 4 6124 ####[facility] [address], [place] [address] Abbi Choudhary M.D. [id number] Glucose [Mass/Vol] 317 mg/dL High 65-99 [facility] Comment on above: Order Comment: [facility] has implemented the eGFR calculation approach that does not have a coefficient for race that conforms to the NKF-ASN Task Force Recommendations. Performed By: #### 4 6124 ####[facility] [address] [place], [place] [address] Abbi Choudhary M.D. [id number] HCO3 (Bld) [Moles/Vol] 22 mmol/L Normal 21-32 [facility] Comment on above: Order Comment: [facility] has implemented the eGFR calculation approach that does not have a coefficient for race that conforms to the NKF-ASN Task Force Recommendations. Performed By: #### 4 6124 ####[facility] [address] [place], [place] [address] Abbi Choudhary M.D. [id number] Potassium [Moles/Vol] 4.1 mmol/L Normal 3.5-5.1 [facility] Comment on above: Order Comment: [facility] has implemented the eGFR calculation approach that does not have a coefficient for race that conforms to the NKF-ASN Task Force Recommendations. Performed By: #### 4 6124 ####[facility] [address] [place], [place] [address] Abbi Choudhary M.D. [id number] Sodium [Moles/Vol] 138 mmol/L Normal 135-145 [facility] Comment on above: Order Comment: [facility] has implemented the eGFR calculation approach that does not have a coefficient for race that conforms to the NKF-ASN Task Force Recommendations. Performed By: #### 4 6124 ####[facility] [address] [place], [place] [address] Abbi Choudhary M.D. [id number] Urea nitrogen [Mass/Vol] 23 mg/dL Normal 8-25 [facility] Comment on above: Order Comment: [facility] has implemented the eGFR calculation approach that does not have a coefficient for race that conforms to the NKF-ASN Task Force Recommendations. Performed By: #### 4 6124 ####[facility] [address] [place], [place] [address] Abbi Choudhary M.D. [id number] Urea nitrogen/Creatinine [Mass ratio] 21.9 mg/mg High 10.0-20.0 [facility] Comment on above: Order Comment: [facility] has implemented the eGFR calculation approach that does not have a coefficient for race that conforms to the NKF-ASN Task Force Recommendations. Performed By: #### [id number] ####[facility] [address] [place], [place] [address] Abbi Choudhary M.D. [id number] CBC WITH AUTO DIFFERENTIALon 10-15-2023 AUTO NRBC 0.0 % Normal [facility] Comment on above: Performed By: #### L [id number] ####[facility] [address] [place], [place] [address] Abbi Choudhary M.D. [id number] AUTO NRBC ABS COUNT 0.00 K/mcL Normal 0.00-0.00 [facility] Comment on above: Performed By: #### L [id number] ####[facility] [address] [place] [address] Abbi Choudhary M.D. [id number] BASOPHILS ABSOLUTE COUNT 0.04 K/mcL Normal 0.00-0.30 [facility] Comment on above: Performed By: #### L [id number] ####[facility] [address] [place] [address] Abbi Choudhary M.D. [id number] Basophils/100 WBC (Bld) 0.4 % Normal [facility] Comment on above: Performed By: #### L [id number] ####[facility] [address] [place] [address] Abbi Choudhary M.D. [id number] Eosinophils (Bld) [#/Vol] 0.20 10*3/uL Normal 0.00-0.50 [facility] Comment on above: Performed By: #### L [id number] ####[facility] [address] [place] [address] Abbi Choudhary M.D. [id number] Eosinophils/100 WBC (Bld) 2.0 % Normal [facility] Comment on above: Performed By: #### L [id number] ####[facility] [address] [place] [address] Abbi Choudhary M.D. [id number] Erythrocyte distribution width (RBC) [Ratio] 12.9 % Normal 11.6-14.8 [facility] Comment on above: Performed By: #### L [id number] ####[facility] [address] [place] [address] Abbi Choudhary M.D. [id number] Hematocrit (Bld) [Volume fraction] 35.3 % Low 36.0-46.0 [facility] Comment on above: Performed By: #### L [id number] ####[facility] [address] [place] [address] Abbi Choudhary M.D. [id number] Hemoglobin (Bld) [Mass/Vol] 12.1 g/dL Normal 12.0-16.0 [facility] Comment on above: Performed By: #### L [id number] ####[facility] [address] [place] [address] Abbi Choudhary M.D. [id number] IG ABSOLUTE 0.04 K/mcL Normal 0.00-0.30 [facility] Comment on above: Performed By: #### L [id number] ####[facility] [address] [place] [address] Abbi Choudhary M.D. [id number] IG PERCENT 0.40 % Normal [facility] Comment on above: Result Comment: The IG parameter is the percentage of metamyelocytes, myelocytes and promyelocytes. An immature granulocyte count (IG) of 1% or more suggests the possibility of infection, an IG count of 3% is very likely related to an infection. Performed By: #### L [id number] ####[facility] [address] [place] [address] Abbi Choudhary M.D. [id number] Lymphocytes (Bld) [#/Vol] 1.95 10*3/uL Normal 0.90-4.00 [facility] Comment on above: Performed By: #### L [id number] ####[facility] [address] [place] [address] Abbi Choudhary M.D. [id number] Lymphocytes/100 WBC (Bld) 19.1 % Normal [facility] Comment on above: Performed By: #### L [id number] ####[facility] [address] [place] [address] Abbi Choudhary M.D. [id number] MCH (RBC) [Entitic mass] 29.8 pg Normal 26.0-34.0 [facility] Comment on above: Performed By: #### L [id number] ####[facility] [address] [place], [place] [address] Abbi Choudhary M.D. [id number] MCV (RBC) [Entitic vol] 86.9 fL Normal 80.0-100.0 [facility] Comment on above: Performed By: #### L [id number] ####[facility] [address] [place] [address] Abbi Choudhary M.D. [id number] MEAN CORPUSCULAR HEMOGLOBIN CONC 34.3 g/dL Normal 31.0-37.0 [facility] Comment on above: Performed By: #### L [id number] ####[facility] [address] [place], [place] [address] Abbi Choudhary M.D. [id number] Monocytes (Bld) [#/Vol] 0.55 10*3/uL Normal 0.30-0.90 [facility] Comment on above: Performed By: #### L [id number] ####[facility] [address] [place], [place] [address] Abbi Choudhary M.D. [id number] Monocytes/100 WBC (Bld) 5.4 % Normal [facility] Comment on above: Performed By: #### L [id number] ####[facility] [address] [place], [place] [address] Abbi Choudhary M.D. [id number] NEUTROPHILS ABSOLUTE COUNT 7.42 K/mcL High 1.70-7.00 [facility] Comment on above: Performed By: #### L [id number] ####[facility] [address] [place], [place] [address] Abbi Choudhary M.D. [id number] Neutrophils/100 WBC (Bld) 72.7 % Normal [facility] Comment on above: Performed By: #### L [id number] ####[facility] [address] [place], [place] [address] Abbi Choudhary M.D. [id number] Platelet mean volume (Bld) [Entitic vol] 8.9 fL Low 9.4-12.4 [facility] Comment on above: Performed By: #### L [id number] ####[facility] [address] [place], [place] [address] Abbi Choudhary M.D. [id number] Platelets (Bld) [#/Vol] 311 10*3/uL Normal 150-400 [facility] Comment on above: Performed By: #### L [id number] ####[facility] [address] [place], [place] [address] Abbi Choudhary M.D. [id number] RBC (Bld) [#/Vol] 4.06 10*6/uL Normal 4.00-5.20 [facility] Comment on above: Performed By: #### L [id number] ####[facility] [address] [place], [place] [address] Abbi Choudhary M.D. [id number] WBC (Bld) [#/Vol] 10.20 10*3/uL Normal 4.50-11.00 [facility] Comment on above: Performed By: #### L [id number] ####[facility] [address] [place], [place] [address] Abbi Choudhary M.D. [id number] ED Prov Noteon 10-15-2023 ED Prov Note Normal [facility] HEMOGLOBIN A1Con 10-15-2023 Glucose [Mass/Vol] 217 mg/dL High 74-114 [facility] Comment on above: Performed By: #### 4 [id number] ####[facility] [address] [place], [place] [address] Abbi Choudhary M.D. [id number] HbA1c (Bld) [Mass fraction] 9.2 % High 4.2-5.6 [facility] Comment on above: Performed By: #### 4 [id number] ####[facility] [address] [place], [place] [address] Abbi Choudhary M.D. [id number] TROPONINon 10-15-2023 TROPONIN T DELTA CHANGE INTERPRETATION Delta troponin requires at least 3 hours between collections. Normal [facility] Comment on above: Performed By: #### 4 [id number] ####[facility] [address] [place], [place] [address] Abbi Choudhary M.D. [id number] TROPONIN T NG/L 17 ng/L Off scale high <=14 [facility] Comment on above: Performed By: #### 4 [id number] ####[facility] [address] [place], [place] [address] Abbi Choudhary M.D. [id number] BASELINE TROPONIN T NG/L 19 ng/L Off scale high <=14 [facility] Comment on above: Performed By: #### 4 [id number] ####[facility] [address] [place], [place] [address] Abbi Choudhary M.D. [id number] TROPONIN T INTERPRETATION Possible acute cardiac injury. Normal [facility] Comment on above: Performed By: #### 4 [id number] ####[facility] [address] [place], [place] [address] Abbi Choudhary M.D. [id number] XR CHEST PA/APon 10-15-2023 XR CHEST PA/AP Normal [facility] Comment on above: Order Comment: Injur y/Trauma or Illness?:Illness/OtherHow long have you had these symptoms (acute/chronic)?:AcuteReason for exam?:Pt stated that she has been experiencing right sided chest pain that radiates inyo her shoulder for a couple hours. Pt Pt stated that she also has R foot woundHistory of cancer?:uSurgeries, chemotherapy, or radiation?:pacemakerType of Exam?:InitialAdditional signs and symptoms?:Pt stated that she has been experiencing right sided chest pain that radiates inyo her shoulder for a couple hours. Pt Pt stated that she also has R foot wound No Panel Informationon 08-25 IMPRESSION: Soft tissue swelling. No acute fracture evident. Healed, internally fixated distal fibular fracture with sequela of remote collateral ligamentous trauma at the ankle. OLOGY EXAM: XR FOOT LEFT 3 + VIEWS, XR ANKLE LEFT 3+ VIEWS, XR TIBIA AND FIBULA LEFT 2 VIEWS, 08/26/2023 18:44 PM (accession [id number]), 08/26/2023 18:46 PM (accession [id number]), 08/26/2023 18:46 PM (accession [id number]) COMPARISON: Ankle radiographs dated May 16, 2008 CLINICAL INDICATIONS: midfoot tenderness mild trauma RELEVANT CLINICAL HISTORY: FINDINGS: LEFT FOOT 3 nonweightbearing images obtained There is pronounced soft tissue swelling about the foot, greatest at the dorsal aspect. Scattered calcified atheromatous plaque. There is osseous demineralization. No acute fracture is evident. Chronic hypertrophy of the dorsal aspect of the navicular. Hallux valgus with narrowing and osteophytosis of the first MTP joint. LEFT ANKLE 4 nonweightbearing images obtained Soft tissue swelling is noted about the ankle. Healed, internally fixated distal fibular fracture is demonstrated with an intact lateral cortical plate and screw construct. There is bony hypertrophy and cystic change of both the medial and lateral malleoli. No acute fracture is seen. Tibiotalar joint space narrowing with small marginal osteophytes. Corticated ossicles project along the anterior tibiotalar joint recess. Os trigonum is demonstrated. LEFT TIBIA AND FIBULA 2 images obtained Soft tissue swelling of the anterolateral aspect of the mid to distal leg. The proximal tibia and fibula are intact. Posttraumatic hypertrophy along the distal syndesmosis and distal aspect of the interosseous membrane. Left knee appears anatomic. RADIOLOGY Kwaku Jay DO - 08/26/2023 EXAM: XR FOOT LEFT 3+ VIEWS, XR ANKLE LEFT 3+ VIEWS, XR TIBIA AND FIBULA LEFT 2 VIEWS, 08/26/2023 18:44 PM (accession [id number]), 08/26/2023 18:46 PM (accession [id number]), 08/26/2023 18:46 PM (accession [id number]) COMPARISON: Ankle radiographs dated May 16, 2008 CLINICAL INDICATIONS: midfoot tenderness mild trauma RELEVANT CLINICAL HISTORY: FINDINGS: LEFT FOOT 3 nonweightbearing images obtained There is pronounced soft tissue swelling about the foot, greatest at the dorsal aspect. Scattered calcified atheromatous plaque. There is osseous demineralization. No acute fracture is evident. Chronic hypertrophy of the dorsal aspect of the navicular. Hallux valgus with narrowing and osteophytosis of the first MTP joint. LEFT ANKLE 4 nonweightbearing images obtained Soft tissue swelling is noted about the ankle. Healed, internally fixated distal fibular fracture is demonstrated with an intact lateral cortical plate and screw construct. There is bony hypertrophy and cystic change of both the medial and lateral malleoli. No acute fracture is seen. Tibiotalar joint space narrowing with small marginal osteophytes. Corticated ossicles project along the anterior tibiotalar joint recess. Os trigonum is demonstrated. LEFT TIBIA AND FIBULA 2 images obtained Soft tissue swelling of the anterolateral aspect of the mid to distal leg. The proximal tibia and fibula are intact. Posttraumatic hypertrophy along the distal syndesmosis and distal aspect of the interosseous membrane. Left knee appears anatomic. IMPRESSION IMPRESSION: Soft tissue swelling. No acute fracture evident. Healed, internally fixated distal fibular fracture with sequela of remote collateral ligamentous trauma at the ankle. [facility] No Panel InformationOrdered By: Kwaku Jay on 08-26-2023 [facility] Work Phone: XR ANKLE LEFT 3+ VIEWSon XR ANKLE LEFT 3+ VIEWS EXAM: XR FOOT LEFT 3+ VIEWS, XR ANKLE LEFT 3+ VIEWS, XR TIBIA AND FIBULA LEFT 2 VIEWS, 08/26/2023 18:44 PM (accession [id number]), 08/26/2023 18:46 PM (accession [id number]), 08/26/2023 18:46 PM (accession [id number]) COMPARISON: Ankle radiographs dated May 16, 2008 CLINICAL INDICATIONS: midfoot tenderness mild trauma RELEVANT CLINICAL HISTORY: FINDINGS: LEFT FOOT 3 nonweightbearing images obtained There is pronounced soft tissue swelling about the foot, greatest at the dorsal aspect. Scattered calcified atheromatous plaque. There is osseous demineralization. No acute fracture is evident. Chronic hypertrophy of the dorsal aspect of the navicular. Hallux valgus with narrowing and osteophytosis of the first MTP joint. LEFT ANKLE 4 nonweightbearing images obtained Soft tissue swelling is noted about the ankle. Healed, internally fixated distal fibular fracture is demonstrated with an intact lateral cortical plate and screw construct. There is bony hypertrophy and cystic change of both the medial and lateral malleoli. No acute fracture is seen. Tibiotalar joint space narrowing with small marginal osteophytes. Corticated ossicles project along the anterior tibiotalar joint recess. Os trigonum is demonstrated. LEFT TIBIA AND FIBULA 2 images obtained Soft tissue swelling of the anterolateral aspect of the mid to distal leg. The proximal tibia and fibula are intact. Posttraumatic hypertrophy along the distal syndesmosis and distal aspect of the interosseous membrane. Left knee appears anatomic. IMPRESSION: Soft tissue swelling. No acute fracture evident. Healed, internally fixated distal fibular fracture with sequela of remote collateral ligamentous trauma at the ankle. Normal [facility] XR Ankle - left 3 [facility] Study observation (narrative) [facility] XR FOOT LEFT 3+ VIEWSon XR FOOT LEFT 3+ VIEWS EXAM: XR FOOT LEFT 3+ VIEWS, XR ANKLE LEFT 3+ VIEWS, XR TIBIA AND FIBULA LEFT 2 VIEWS, 08/26/2023 18:44 PM (accession [id number]), 08/26/2023 18:46 PM (accession [id number]), 08/26/2023 18:46 PM (accession [id number]) COMPARISON: Ankle radiographs dated May 16, 2008 CLINICAL INDICATIONS: midfoot tenderness mild trauma RELEVANT CLINICAL HISTORY: FINDINGS: LEFT FOOT 3 nonweightbearing images obtained There is pronounced soft tissue swelling about the foot, greatest at the dorsal aspect. Scattered calcified atheromatous plaque. There is osseous demineralization. No acute fracture is evident. Chronic hypertrophy of the dorsal aspect of the navicular. Hallux valgus with narrowing and osteophytosis of the first MTP joint. LEFT ANKLE 4 nonweightbearing images obtained Soft tissue swelling is noted about the ankle. Healed, internally fixated distal fibular fracture is demonstrated with an intact lateral cortical plate and screw construct. There is bony hypertrophy and cystic change of both the medial and lateral malleoli. No acute fracture is seen. Tibiotalar joint space narrowing with small marginal osteophytes. Corticated ossicles project along the anterior tibiotalar joint recess. Os trigonum is demonstrated. LEFT TIBIA AND FIBULA 2 images obtained Soft tissue swelling of the anterolateral aspect of the mid to distal leg. The proximal tibia and fibula are intact. Posttraumatic hypertrophy along the distal syndesmosis and distal aspect of the interosseous membrane. Left knee appears anatomic. IMPRESSION: Soft tissue swelling. No acute fracture evident. Healed, internally fixated distal fibular fracture with sequela of remote collateral ligamentous trauma at the ankle. Normal [facility] XR Foot - left 3 [facility] Study observation (narrative) [facility] XR TIBIA AND FIBULA LEFT 2 V IEWSon 08-26-2023 XR TIBIA AND FIBULA LEFT 2 VIEWS EXAM: XR FOOT LEFT 3+ VIEWS, XR ANKLE LEFT 3+ VIEWS, XR TIBIA AND FIBULA LEFT 2 VIEWS, 08/26/2023 18:44 PM (accession [id number]), 08/26/2023 18:46 PM (accession [id number]), 08/26/2023 18:46 PM (accession [id number]) COMPARISON: Ankle radiographs dated May 16, 2008 CLINICAL INDICATIONS: midfoot tenderness mild trauma RELEVANT CLINICAL HISTORY: FINDINGS: LEFT FOOT 3 nonweightbearing images obtained There is pronounced soft tissue swelling about the foot, greatest at the dorsal aspect. Scattered calcified atheromatous plaque. There is osseous demineralization. No acute fracture is evident. Chronic hypertrophy of the dorsal aspect of the navicular. Hallux valgus with narrowing and osteophytosis of the first MTP joint. LEFT ANKLE 4 nonweightbearing images obtained Soft tissue swelling is noted about the ankle. Healed, internally fixated distal fibular fracture is demonstrated with an intact lateral cortical plate and screw construct. There is bony hypertrophy and cystic change of both the medial and lateral malleoli. No acute fracture is seen. Tibiotalar joint space narrowing with small marginal osteophytes. Corticated ossicles project along the anterior tibiotalar joint recess. Os trigonum is demonstrated. LEFT TIBIA AND FIBULA 2 images obtained Soft tissue swelling of the anterolateral aspect of the mid to distal leg. The proximal tibia and fibula are intact. Posttraumatic hypertrophy along the distal syndesmosis and distal aspect of the interosseous membrane. Left knee appears anatomic. IMPRESSION: Soft tissue swelling. No acute fracture evident. Healed, internally fixated distal fibular fracture with sequela of remote collateral ligamentous trauma at the ankle. Normal [facility] XR Tibia and Fibula - left V [facility] 08-26-2023 Radiology Study observation (narrative) [facility] CBC panel Auto (Bld)on 03-30 Erythrocyte distribution width (RBC) [Entitic vol] 13.2 % 11.6 - 14.8 % [facility] Hematocrit (Bld) [Volume fraction] 32.6 % Low 36.0 - 46.0 % [facility] Hemoglobin (Bld) [Mass/Vol] 10.5 g/dL Low 12.0 - 16.0 g/dL [facility] Interpretation and review of laboratory results Abnormal [facility] MCH (RBC) [Entitic mass] 30.1 pg 26.0 - 34.0 pg [facility] MCHC (RBC) [Mass/Vol] 32.2 g/dL 31.0 - 37.0 g/dL [facility] MCV (RBC) [Entitic vol] 93.4 fL 80.0 - 100.0 fL [facility] Nucleated RBC (Bld) [#/Vol] 0.00 10*3/uL [facility] Nucleated RBC/100 WBC (Bld) [Ratio] 0.0 % [facility] Platelet mean volume (Bld) [Entitic vol] 8.7 fL Low 9.4 - 12.4 fL [facility] Platelets (Bld) [#/Vol] 296 10*3/uL [facility] RBC (Bld) [#/Vol] 3.49 10*6/uL Low [facility] WBC (Bld) [#/Vol] 7.46 10*3/uL [facility] Glucose (Bld) [Mass/Vol]on 05-30-2022 Glucose [Mass/Vol] 232 mg/dL High 65 - 99 mg/dL [facility] Interpretation and review of laboratory results Abnormal [facility] Glucose [Mass/Vol] 306 mg/dL High 65 - 99 mg/dL [facility] Interpretation and review of laboratory results Abnormal [facility] Renal function 2000 panelon 03-30-2023 Albumin [Mass/Vol] 3.2 g/dL 3.2 - 5.2 g/dL [facility] Anion gap [Moles/Vol] 10 mmol/L 10 - 2 0 mmol/L [facility] Calcium [Mass/Vol] 8.7 mg/dL 8.4 - 10. 2 mg/dL [facility] Chloride [Moles/Vol] 106 mmol/L 98 - 10 8 mmol/L [facility] Creatinine [Mass/Vol] 1.29 mg/dL High 0.40 - 1.10 mg/dL [facility] GFR/1.73 sq M.predicted CKD-EPI (S/P/Bld) [Vol rate/Area] 52 Low - PINF [facility] Comment on above: Estimated GFR was ca lculated using the 2020 CKD-EPI creatinine equation. Glucose [Mass/Vol] 338 mg/dL High 65 - 99 mg/dL [facility] HCO3 [Moles/Vol] 25 mmol/L 21 - 32 mmol/L [facility] Interpretation and review of laboratory results Abnormal [facility] Phosphate [Mass/Vol] 3.7 mg/dL 2.7 - 4 .5 mg/dL [facility] Potassium [Moles/Vol] 4.0 mmol/L 3.5 - 5.1 mmol/L [facility] Sodium [Moles/Vol] 137 mmol/L 135 - 145 mmol/L [facility] Urea nitrogen [Mass/Vol] 22 mg/dL 8 - 25 mg/dL [facility] Urea nitrogen/Creatinine [Mass ratio] 17.1 mg/mg 10.0 - 20.0 [facility] has implemented the eGFR calculation approach that does not have a coefficient for race that conforms to the NKF-ASN Task Force Recommendations. [facility] Basic metabolic 2000 panelon 03-29-2023 Anion gap [Moles/Vol] 13 mmol/L 10 - 2 0 mmol/L [facility] Calcium [Mass/Vol] 9.2 mg/dL 8.4 - 10. 2 mg/dL [facility] Chloride [Moles/Vol] 106 mmol/L 98 - 10 8 mmol/L [facility] Creatinine [Mass/Vol] 1.07 mg/dL 0.40 - 1.10 mg/dL [facility] GFR/1.73 sq M.predicted CKD-EPI (S/P/Bld) [Vol rate/Area] 65 - PINF [facility] Comment on above: Estimated GFR was ca lculated using the 2020 CKD-EPI creatinine equation. Glucose [Mass/Vol] 122 mg/dL High 65 - 99 mg/dL [facility] HCO3 [Moles/Vol] 25 mmol/L 21 - 32 mmol/L [facility] Interpretation and review of laboratory results Abnormal [facility] Potassium [Moles/Vol] 3.9 mmol/L 3.5 - 5.1 mmol/L [facility] Sodium [Moles/Vol] 140 mmol/L 135 - 145 mmol/L [facility] Urea nitrogen [Mass/Vol] 15 mg/dL 8 - 25 mg/dL [facility] Urea nitrogen/Creatinine [Mass ratio] 14.0 mg/mg 10.0 - 20.0 [facility] has implemented the eGFR calculation approach that does not have a coefficient for race that conforms to the NKF-ASN Task Force Recommendations. [facility] CBC Auto Differentialon 11-0 -2022 Basophils (Bld) [#/Vol] 0.06 10*3/uL [facility] Basophils/100 WBC (Bld) 0.6 % [facility] Eosinophils (Bld) [#/Vol] 0.14 10*3/uL [facility] Eosinophils/100 WBC (Bld) 1.5 % [facility] Erythrocyte distribution width (RBC) [Entitic vol] 13.1 % 11.6 - 14.8 % [facility] Hematocrit (Bld) [Volume fraction] 35.1 % Low 36.0 - 46.0 % [facility] Hemoglobin (Bld) [Mass/Vol] 11.9 g/dL Low 12.0 - 16.0 g/dL [facility] Immature granulocytes (Bld) [#/Vol] 0.05 10*3/uL [facility] Immature granulocytes/100 WBC (Bld) 0.50 % [facility] Comment on above: The IG parameter is the percentage of metamyelocytes, myelocytes and promyelocytes. An immature granulocyte count (IG) of 1% or more suggests the possibility of infection, an IG count of 3% is very likely related to an infection. Interpretation and review of laboratory results Abnormal [facility] Lymphocytes (Bld) [#/Vol] 1.49 10*3/uL [facility] Lymphocytes/100 WBC (Bld) 15.8 % [facility] MCH (RBC) [Entitic mass] 30.5 pg 26.0 - 34.0 pg [facility] MCHC (RBC) [Mass/Vol] 33.9 g/dL 31.0 - 37.0 g/dL [facility] MCV (RBC) [Entitic vol] 90.0 fL 80.0 - 100.0 fL [facility] Monocytes (Bld) [#/Vol] 0.49 10*3/uL [facility] Monocytes/100 WBC (Bld) 5.2 % [facility] Neutrophils (Bld) [#/Vol] 7.21 10*3/uL High [facility] Neutrophils/100 WBC (Bld) 76.4 % [facility] Nucleated RBC (Bld) [#/Vol] 0.00 10*3/uL [facility] Nucleated RBC/100 WBC (Bld) [Ratio] 0.0 % [facility] Platelet mean volume (Bld) [Entitic vol] 8.7 fL Low 9.4 - 12.4 fL [facility] Platelets (Bld) [#/Vol] 306 10*3/uL [facility] RBC (Bld) [#/Vol] 3.90 10*6/uL Low [facility] WBC (Bld) [#/Vol] 9.44 10*3/uL [facility] CT Chest Abdomen Pelvis With out Contraston 03-29-2023 1. Normal caliber of the aorta of without evidence of aneurysm. 2. No acute CT findings of the chest, abdomen or pelvis. 3. Chronic findings as detailed above. Workstation ID: [id number] EXAMINATION: CT CHEST ABDOMEN PELVIS WITHOUT CONTRAST HISTORY: Aortic aneurysm, known or suspected Injury/Trauma or Illness?:Illness/Other c/o midsternal cp x 4 days How long have you had these symptoms (acute/chronic)?:Acute Reason for exam?:cp Type of Exam?:Initial Aortic aneurysm, known or suspected COMPARISON: CT chest abdomen and pelvis 02/28/2023 chest radiograph 02/17/2023, thoracic spine radiograph 06/26/2017 TECHNIQUE: TECHNIQUE: CT acquisition of the chest, abdomen, and pelvis without intravenous contrast. Coronal and sagittal reformatted images provided. Individualized dose optimization techniques were used for this CT. FINDINGS: FINDINGS: Exam is limited secondary to lack of intravenous contrast. SUPPORT DEVICES: 3 lead cardiac conduction device with a single lead terminating in the right atrium and 2 leads terminating within the right ventricle. There is limited assessment of these leads to extensive metallic scatter and beam hardening artifact. Right chest port catheter tip terminates at the distal SVC. LOWER NECK: Unremarkable thyroid gland. No enlarged lymph nodes. CHEST: Mediastinum: No enlarged mediastinal lymph nodes. The thoracic aorta is normal in caliber and appearance. The esophagus is normal. Heart: Normal size. No pericardial thickening or effusion. No coronary artery calcifications. Lungs: No pulmonary consolidation. No suspicious pulmonary nodule. The airways are normal. Pleural Space: No pleural effusion or pneumothorax. ABDOMEN AND PELVIS: Liver: Normal. Gallbladder and biliary tree: Post cholecystectomy. No biliary ductal dilation. Pancreas: Moderate fatty atrophy. Spleen: Normal. Adrenal glands: Normal. Kidneys and ureters: Normal. Bladder: Normal. Reproductive organs: Post hysterectomy. GI tract: Stomach and small bowel are decompressed. No small bowel obstruction. Appendix is normal. Colon is normal. No focal or diffuse bowel wall thickening or inflammatory stranding. Lymph nodes: No lymphadenopathy. Peritoneum: No ascites or free air. No other fluid collection. Vessels: Aorta is normal in caliber throughout. Peripheral vascular calcifications. MUSCULOSKELETAL: Abdominal wall: Postsurgical changes of the ventral abdominal wall. T/L Spine: No acute osseous abnormality. Mild multilevel degenerative changes. Pelvis: No acute osseous abnormality. [facility] Indra Serna MD - 03/29/2023 EXAMINATION: CT CHEST ABDOMEN PELVIS WITHOUT CONTRAST HISTORY: Aortic aneurysm, known or suspected Injury/Trauma or Illness?:Illness/Other c/o midsternal cp x 4 days How long have you had these symptoms (acute/chronic)?:Acute Reason for exam?:cp Type of Exam?:Initial Aortic aneurysm, known or suspected COMPARISON: CT chest abdomen and pelvis 02/28/2023 chest radiograph 02/17/2023, thoracic spine radiograph 06/26/2017 TECHNIQUE: TECHNIQUE: CT acquisition of the chest, abdomen, and pelvis without intravenous contrast. Coronal and sagittal reformatted images provided. Individualized dose optimization techniques were used for this CT. FINDINGS: FINDINGS: Exam is limited secondary to lack of intravenous contrast. SUPPORT DEVICES: 3 lead cardiac conduction device with a single lead terminating in the right atrium and 2 leads terminating within the right ventricle. There is limited assessment of these leads to extensive metallic scatter and beam hardening artifact. Right chest port catheter tip terminates at the distal SVC. LOWER NECK: Unremarkable thyroid gland. No enlarged lymph nodes. CHEST: Mediastinum: No enlarged mediastinal lymph nodes. The thoracic aorta is normal in caliber and appearance. The esophagus is normal. Heart: Normal size. No pericardial thickening or effusion. No coronary artery calcifications. Lungs: No pulmonary consolidation. No suspicious pulmonary nodule. The airways are normal. Pleural Space: No pleural effusion or pneumothorax. ABDOMEN AND PELVIS: Liver: Normal. Gallbladder and biliary tree: Post cholecystectomy. No biliary ductal dilation. Pancreas: Moderate fatty atrophy. Spleen: Normal. Adrenal glands: Normal. Kidneys and ureters: Normal. Bladder: Normal. Reproductive organs: Post hysterectomy. GI tract: Stomach and small bowel are decompressed. No small bowel obstruction. Appendix is normal. Colon is normal. No focal or diffuse bowel wall thickening or inflammatory stranding. Lymph nodes: No lymphadenopathy. Peritoneum: No ascites or free air. No other fluid collection. Vessels: Aorta is normal in caliber throughout. Peripheral vascular calcifications. MUSCULOSKELETAL: Abdominal wall: Postsurgical changes of the ventral abdominal wall. T/L Spine: No acute osseous abnormality. Mild multilevel degenerative changes. Pelvis: No acute osseous abnormality. IMPRESSION: 1. Normal caliber of the aorta of without evidence of aneurysm. 2. No acute CT findings of the chest, abdomen or pelvis. 3. Chronic findings as detailed above. Workstation ID: [id number] [facility] Radiology Study observation (narrative) [facility] CT Chest Abdomen Pelvis With out ContrastOrdered By: Indra Serna on 03-29-2023 [facility] Work Phone: EKGon 03-29-2023 [facility] Glucose (Bld) [Mass/Vol]on 1 05-29-2022 Glucose [Mass/Vol] 260 mg/dL High 65 - 99 mg/dL [facility] Interpretation and review of laboratory results Abnormal [facility] Glucose [Mass/Vol] 88 mg/dL 65 - 99 mg/dL [facility] Interpretation and review of laboratory results Normal [facility] HbA1c (Bld) [Mass fraction]o n 03-29-2023 Average glucose Estimated from glycated hemoglobin (Bld) [Mass/Vol] 235 mg/dL High 74 - 114 mg/dL [facility] Interpretation and review of laboratory results Abnormal [facility] Hemoglobin A1con 03-29-2023 HbA1c (Bld) [Mass fraction] 9.8 % High 4.2 - 5.6 % [facility] Hepatic function 2000 panelo n 03-29-2023 Albumin [Mass/Vol] 3.8 g/dL 3.2 - 5.2 g/dL [facility] ALP [Catalytic activity/Vol] 108 U/L 40 - 150 U/L [facility] ALT [Catalytic activity/Vol] 7 U/L 0-35 U/L [facility] AST [Catalytic activity/Vol] 8 U/L 0-35 U/L [facility] Bilirubin [Mass/Vol] 0.3 mg/dL 0.0 - 1 .3 mg/dL [facility] Bilirubin.conjugated [Mass/Vol] mg/dL 0.0 - 0.4 mg/dL [facility] Protein [Mass/Vol] 6.8 g/dL 6.0 - 8.0 g/dL [facility] Lipaseon 03-29-2023 Lipase [Catalytic activity/Vol] 37 U/L 15 - 65 U/L [facility] No Panel Informationon 03-29 Extra Tube Hold for add-ons. [place] Comment on above: Auto resulted. [facility] Interpretation and review of laboratory results Normal [facility] TSH DL <= 0.005 mIU/L Qnon 1 05-29-2022 Interpretation and review of laboratory results Normal [facility] TSH Qn 2.94 m[IU]/L [facility] TroponinOrdered By: Shy crawford on 03-29-2023 Delta Difference Troponin T -1 ng/L < = -/+ 7 change [facility] Inter Troponin T Delta Change Probable non-acute cardiac injury or late presentation of acute injury. [facility] Troponin T 14 ng/L NINF - 14 ng/L [facility] TroponinOrdered By: Charisse chapa on 03-29-2023 Interpretation and review of laboratory results Abnormal [facility] Troponin T 15 ng/L Critically high NINF - 14 ng/L [facility] Troponin T Interpretation Possible acute cardiac injury. [facility] XR Chest 1 Viewon 03-29-2023 Low lung volumes and small effusion suspected. MA/ Workstation ID: [id number] [facility] EXAMINATION: XR CHEST PA/AP 03/29/2023 10:34 am HISTORY: ORDERING SYSTEM PROVIDED HISTORY: cp, TECHNOLOGIST PROVIDED HISTORY: Illness/Other Reason for exam: chest pain Cancer History: u Surgery, RadiationHistory: pacemaker Encounter Type: Initial Additional signs and symptoms: na ORDERING SYSTEM PROVIDED DIAGNOSIS CODES: COMPARISON: 03/15/2023 FINDINGS: There are low lung volumes, pulmonary venous congestion and small effusions. There is basilar atelectasis. Heart size is normal. There is a port present. There is a transvenous defibrillator present. [facility] Laura Hodge MD - 03/29/2023 EXAMINATION: XR CHEST PA/AP 03/29/2023 10:34 am HISTORY: ORDERING SYSTEM PROVIDED HISTORY: cp, TECHNOLOGIST PROVIDED HISTORY: Illness/Other Reason for exam: chest pain Cancer History: u Surgery, RadiationHistory: pacemaker Encounter Type: Initial Additional signs and symptoms: na ORDERING SYSTEM PROVIDED DIAGNOSIS CODES: COMPARISON: 03/15/2023 FINDINGS: There are low lung volumes, pulmonary venous congestion and small effusions. There is basilar atelectasis. Heart size is normal. There is a port present. There is a transvenous defibrillator present. IMPRESSION: Low lung volumes and small effusion suspected. MA/hb Workstation ID: [id number] [facility] Radiology Study observation (narrative) [facility] XR Chest 1 ViewOrdered By: Joel Hodge on 03-29-2023 [facility] Work Phone: Basic metabolic 2000 panelon 02-20-2023 Anion gap [Moles/Vol] 14 mmol/L 10 - 2 0 mmol/L [facility] Calcium [Mass/Vol] 7.8 mg/dL Low 8.4 - 10. 2 mg/dL [facility] Chloride [Moles/Vol] 110 mmol/L High 98 - 10 8 mmol/L [facility] Creatinine [Mass/Vol] 1.19 mg/dL High 0.40 - 1.10 mg/dL [facility] GFR/1.73 sq M.predicted CKD-EPI (S/P/Bld) [Vol rate/Area] 58 Low - PINF [facility] Comment on above: Estimated GFR was ca lculated using the 2020 CKD-EPI creatinine equation. Glucose [Mass/Vol] 227 mg/dL High 65 - 99 mg/dL [facility] HCO3 [Moles/Vol] 20 mmol/L Low 21 - 32 mmol/L [facility] Interpretation and review of laboratory results Abnormal [facility] Potassium [Moles/Vol] 4.6 mmol/L 3.5 - 5.1 mmol/L [facility] Sodium [Moles/Vol] 139 mmol/L 135 - 145 mmol/L [facility] Urea nitrogen [Mass/Vol] 27 mg/dL High 8 - 25 mg/dL [facility] Urea nitrogen/Creatinine [Mass ratio] 22.7 mg/mg High 10.0 - 20.0 [facility] has implemented the eGFR calculation approach that does not have a coefficient for race that conforms to the NKF-ASN Task Force Recommendations. [facility] Glucose (Bld) [Mass/Vol]on 0 02-20-2023 Glucose [Mass/Vol] 187 mg/dL High 65 - 99 mg/dL [facility] Interpretation and review of laboratory results Abnormal [facility] Glucose [Mass/Vol] 257 mg/dL High 65 - 99 mg/dL [facility] Interpretation and review of laboratory results Abnormal [facility] Basic metabolic 2000 panelOr dered By: Jayna Hart on 02-19-2023 Anion gap [Moles/Vol] 15 mmol/L 10 - 2 0 mmol/L [facility] Calcium [Mass/Vol] 8.6 mg/dL 8.4 - 10. 2 mg/dL [facility] Chloride [Moles/Vol] 107 mmol/L 98 - 10 8 mmol/L [facility] Creatinine [Mass/Vol] 2.04 mg/dL High 0.40 - 1.10 mg/dL [facility] GFR/1.73 sq M.predicted CKD-EPI (S/P/Bld) [Vol rate/Area] 30 Low - PINF [facility] Comment on above: Estimated GFR was ca lculated using the 2020 CKD-EPI creatinine equation. Glucose [Mass/Vol] 62 mg/dL Low 65 - 99 mg/dL [facility] HCO3 [Moles/Vol] 20 mmol/L Low 21 - 32 mmol/L [facility] Interpretation and review of laboratory results Abnormal [facility] Potassium [Moles/Vol] 4.3 mmol/L 3.5 - 5.1 mmol/L [facility] Sodium [Moles/Vol] 138 mmol/L 135 - 145 mmol/L [facility] Urea nitrogen [Mass/Vol] 23 mg/dL 8 - 25 mg/dL [facility] Urea nitrogen/Creatinine [Mass ratio] 11.3 mg/mg 10.0 - 20.0 [facility] has implemented the eGFR calculation approach that does not have a coefficient for race that conforms to the NKF-ASN Task Force Recommendations. [facility] CBC panel Auto (Bld)on 02-19 Erythrocyte distribution width (RBC) [Entitic vol] 13.7 % 11.6 - 14.8 % [facility] Hematocrit (Bld) [Volume fraction] 33.9 % Low 36.0 - 46.0 % [facility] Hemoglobin (Bld) [Mass/Vol] 11.4 g/dL Low 12.0 - 16.0 g/dL [facility] Interpretation and review of laboratory results Abnormal [facility] MCH (RBC) [Entitic mass] 30.2 pg 26.0 - 34.0 pg [facility] MCHC (RBC) [Mass/Vol] 33.6 g/dL 31.0 - 37.0 g/dL [facility] MCV (RBC) [Entitic vol] 89.7 fL 80.0 - 100.0 fL [facility] Nucleated RBC (Bld) [#/Vol] 0.00 10*3/uL [facility] Nucleated RBC/100 WBC (Bld) [Ratio] 0.0 % [facility] Platelet mean volume (Bld) [Entitic vol] 9.4 fL 9.4 - 12.4 fL [facility] Platelets (Bld) [#/Vol] 304 10*3/uL [facility] RBC (Bld) [#/Vol] 3.78 10*6/uL Low [facility] WBC (Bld) [#/Vol] 8.21 10*3/uL [facility] Echocardiogram completeOrder ed By: Yan Jones on 02-19-2023 Aortic valve area 3.30021 cm [place] Work Phone: AV mean gradient 3.10388 mmHg [facility] Work Phone: AV peak gradient 5.46694 mmHg [facility] Work Phone: EF 49.5637 % [facility] Work Phone: [facility] Work Phone: Echocardiogram completeon Patient Info Name: ADDIE ORGAN Age: 47 years : 1975 Gender: Female Ht: 157 cm Wt: 114 kg BSA: 2.30 m2 BP: 82 / 62 mmHg Technical Quality: Fair Exam Date: 02/18/2023 6:42 PM Patient Status: Inpatient Container Finishing Inspector: Babs Barnes RDCS Exam Type: ECHOCARDIOGRAM COMPLETE Study Info Indications - Chest pain - Evaluate LV function Attending Physician: [facility] Referring Physician: [id number]; [id number] BMI: 45.91 kg/m2 Summary 1. Normal LV cavity size and function. 2. Left ventricular systolic function is normal with an ejection fraction by Biplane Method of Discs of 50 %. 3. Normal diastolic function. 4. Mild concentric LVH. 5. Trivial TR/PI. Procedure(s): Complete two-dimensional, color flow and Doppler transthoracic echocardiogram is performed. Left Ventricle Left ventricular chamber dimension is normal. Left ventricular systolic function is normal with an ejection fraction by Biplane Method of Discs of 50 %. Normal left ventricular mass. Left ventricular segmental wall motion is normal. There is normal diastolic function. There is no mass or thrombus visualized in the left ventricle. E/e' average 12.1 is not elevated consistent with normal LA pressure. Right Ventricle Right ventricular chamber dimension is normal. Right ventricular systolic function is normal. A pacemaker wire is seen in the right ventricle. Ventricular Septum Intact interventricular septum visualized by 2D and color Doppler imaging. Left Atria Left atrial chamber is normal with a left atrial volume index of 11 ml/m2 by BP MOD. Right Atria Right atrial chamber dimension is normal. A pacemaker wire is seen in the right atrium. Atrial Septum Intact interatrial septum visualized by 2D and color Doppler imaging. Aortic Valve The aortic valve is trileaflet. There is no aortic valve sclerosis. There is no aortic valve stenosis. There is no aortic valve regurgitation. Pulmonic Valve The pulmonic valve is normal. There is no pulmonic valve stenosis. There is trace pulmonic regurgitation. Mitral Valve The mitral valve has normal leaflets. There is no mitral valve stenosis. There is no mitral valve regurgitation. Tricuspid Valve The tricuspid valve leaflets are normal. There is no significant tricuspid valve stenosis. There is trace tricuspid valve regurgitation. There is no pulmonary hypertension, estimated right ventricle systolic pressure is 24 mmHg. Pericardium/Pleural The pericardium appears normal. There is no pericardial effusion. Inferior Vena Cava Not well visualized inferior vena cava with >50% collapse upon inspiration consistent with normal right atrial pressure. Aorta The aortic measurements are indexed to age and body surface area. The aortic root is normal measuring 3.1 cm with an index of 1.4 cm/m2. The proximal ascending aorta is normal measuring 2.7 cm with an index of 1.2 cm/m2. Wall Motion Scoring Wall Motion Scoring Index: 1.00 Left Ventricular Outflow Tract Name Value Normal LVOT 2D LVOT Diameter 2.0 cm LVOT Doppler LVOT Peak Velocity 1.0 m/s LVOT Peak Gradient 4 mmHg LVOT Mean Gradient 2 mmHg LVOT VTI 21 cm LVOT VTI/AV VTI Ratio 0.9 LVOT Stroke Volume 70 ml LVOT Stroke Index 30.39 ml/m2 Pulmonic Valve Name Value Normal PV Doppler PV Peak Velocity 0.86 m/s PV Peak Gradient 3 mmHg PV Regurgitation Doppler NM Peak Velocity 111.88 cm/s NM Peak Gradient 5 mmHg Mitral Valve Name Value Normal MV Doppler (more content not included)... FUJI SYNAPSE CV Yan Jones MD - 02/19/2023 Patient Info Name: ADDIE ORGAN Age: 47 years : 1975 Gender: Female Ht: 157 cm Wt: 114 kg BSA: 2.30 m2 BP: 82 / 62 mmHg Technical Quality: Fair Exam Date: 02/18/2023 6:42 PM Patient Status: Inpatient Container Finishing Inspector: Babs Barnes RDCS Exam Type: ECHOCARDIOGRAM COMPLETE Study Info Indications - Chest pain - Evaluate LV function Attending Physician: [facility] Referring Physician: JUDY Noble; [id number] BMI: 45.91 kg/m2 Summary 1. Normal LV cavity size and function. 2. Left ventricular systolic function is normal with an ejection fraction by Biplane Method of Discs of 50 %. 3. Normal diastolic function. 4. Mild concentric LVH. 5. Trivial TR/PI. Procedure(s): Complete two-dimensional, color flow and Doppler transthoracic echocardiogram is performed. Left Ventricle Left ventricular chamber dimension is normal. Left ventricular systolic function is normal with an ejection fraction by Biplane Method of Discs of 50 %. Normal left ventricular mass. Left ventricular segmental wall motion is normal. There is normal diastolic function. There is no mass or thrombus visualized in the left ventricle. E/e' average 12.1 is not elevated consistent with normal LA pressure. Right Ventricle Right ventricular chamber dimension is normal. Right ventricular systolic function is normal. A pacemaker wire is seen in the right ventricle. Ventricular Septum Intact interventricular septum visualized by 2D and color Doppler imaging. Left Atria Left atrial chamber is normal with a left atrial volume index of 11 ml/m2 by BP MOD. Right Atria Right atrial chamber dimension is normal. A pacemaker wire is seen in the right atrium. Atrial Septum Intact interatrial septum visualized by 2D and color Doppler imaging. Aortic Valve The aortic valve is trileaflet. There is no aortic valve sclerosis. There is no aortic valve stenosis. There is no aortic valve regurgitation. Pulmonic Valve The pulmonic valve is normal. There is no pulmonic valve stenosis. There is trace pulmonic regurgitation. Mitral Valve The mitral valve has normal leaflets. There is no mitral valve stenosis. There is no mitral valve regurgitation. Tricuspid Valve The tricuspid valve leaflets are normal. There is no significant tricuspid valve stenosis. There is trace tricuspid valve regurgitation. There is no pulmonary hypertension, estimated right ventricle systolic pressure is 24 mmHg. Pericardium/Pleural The pericardium appears normal. There is no pericardial effusion. Inferior Vena Cava Not well visualized inferior vena cava with >50% collapse upon inspiration consistent with normal right atrial pressure. Aorta The aortic measurements are indexed to age and body surface area. The aortic root is normal measuring 3.1 cm with an index of 1.4 cm/m2. The proximal ascending aorta is normal measuring 2.7 cm with an index of 1.2 cm/m2. Wall Motion Scoring Wall Motion Scoring Index: 1.00 Left Ventricular Outflow Tract Name Value Normal LVOT 2D LVOT Diameter 2.0 cm LVOT Doppler LVOT Peak Velocity 1.0 m/s LVOT Peak Gradient 4 mmHg LVOT Mean Gradient 2 mmHg LVOT VTI 21 cm LVOT VTI/AV VTI Ratio 0.9 LVOT Stroke Volume 70 ml LVOT Stroke Index 30.39 ml/m2 Pulmonic Valve Name Value Normal PV Doppler PV Peak Velocity 0.86 m/s PV Peak Gradient 3 mmHg PV Regurgitation Doppler NM Peak Velocity 111.88 cm/s NM Peak Gradient 5 mmHg Mitral Valve Name Value Normal MV Doppler MV Decel [place] 375 cm/s2 MV PHT 77 ms MV Area (PHT) 2.9 cm2 4.0-5.0 MV Diastolic Function MV E Peak Velocity 0.99 m/s MV A Peak Velocity 0.91 m/s MV E/A 1.1 MV Decel Time 265 ms MV Annular TDI MV Septal e' Velocity 8.2 cm/s >=8.0 MV E/e' (Septal) 12.1 <=8.0 MV Lateral e' Velo (more content not included)... [facility] Glucose (Bld) [Mass/Vol]on 0 02-19-2023 Glucose [Mass/Vol] 332 mg/dL High 65 - 99 mg/dL [facility] Interpretation and review of laboratory results Abnormal [facility] Glucose [Mass/Vol] 267 mg/dL High 65 - 99 mg/dL [facility] Interpretation and review of laboratory results Abnormal [facility] Glucose [Mass/Vol] 162 mg/dL High 65 - 99 mg/dL [facility] Interpretation and review of laboratory results Abnormal [facility] Glucose [Mass/Vol] 63 mg/dL Low 65 - 99 mg/dL [facility] Interpretation and review of laboratory results Abnormal [facility] Glucose [Mass/Vol] 80 mg/dL 65 - 99 mg/dL [facility] Interpretation and review of laboratory results Normal [facility] Lactate [Moles/Vol]on 2022 Interpretation and review of laboratory results Normal [facility] Lactic Acid, Plasmaon 2022 Lactate [Moles/Vol] 1.7 mmol/L 0.6 - 2. 0 mmol/L [facility] Troponin x 2 (Now and Repeat in 3 hours)on 02-19-2023 Interpretation and review of laboratory results Abnormal [facility] Troponin T 33 ng/L Critically high NINF - 14 ng/L [facility] Troponin T Interpretation Possible acute cardiac injury. [facility] Basic metabolic 2000 panelon 02-18-2023 Anion gap [Moles/Vol] 15 mmol/L 10 - 2 0 mmol/L [facility] Calcium [Mass/Vol] 8.9 mg/dL 8.4 - 10. 2 mg/dL [facility] Chloride [Moles/Vol] 105 mmol/L 98 - 10 8 mmol/L [facility] Creatinine [Mass/Vol] 0.99 mg/dL 0.40 - 1.10 mg/dL [facility] GFR/1.73 sq M.predicted CKD-EPI (S/P/Bld) [Vol rate/Area] 72 - PINF [facility] Comment on above: Estimated GFR was ca lculated using the 2020 CKD-EPI creatinine equation. Glucose [Mass/Vol] 144 mg/dL High 65 - 99 mg/dL [facility] HCO3 [Moles/Vol] 23 mmol/L 21 - 32 mmol/L [facility] Interpretation and review of laboratory results Abnormal [facility] Potassium [Moles/Vol] 3.8 mmol/L 3.5 - 5.1 mmol/L [facility] Sodium [Moles/Vol] 139 mmol/L 135 - 145 mmol/L [facility] Urea nitrogen [Mass/Vol] 15 mg/dL 8 - 25 mg/dL [facility] Urea nitrogen/Creatinine [Mass ratio] 15.2 mg/mg 10.0 - 20.0 [facility] has implemented the eGFR calculation approach that does not have a coefficient for race that conforms to the NKF-ASN Task Force Recommendations. [facility] CBC Auto Differentialon 01-24 Basophils (Bld) [#/Vol] 0.05 10*3/uL [facility] Basophils/100 WBC (Bld) 0.6 % [facility] Eosinophils (Bld) [#/Vol] 0.21 10*3/uL [facility] Eosinophils/100 WBC (Bld) 2.4 % [facility] Erythrocyte distribution width (RBC) [Entitic vol] 13.0 % 11.6 - 14.8 % [facility] Hematocrit (Bld) [Volume fraction] 36.9 % 36.0 - 46.0 % [facility] Hemoglobin (Bld) [Mass/Vol] 12.3 g/dL 12.0 - 16.0 g/dL [facility] Immature granulocytes (Bld) [#/Vol] 0.04 10*3/uL [facility] Immature granulocytes/100 WBC (Bld) 0.50 % [facility] Comment on above: The IG parameter is the percentage of metamyelocytes, myelocytes and promyelocytes. An immature granulocyte count (IG) of 1% or more suggests the possibility of infection, an IG count of 3% is very likely related to an infection. Lymphocytes (Bld) [#/Vol] 2.80 10*3/uL [facility] Lymphocytes/100 WBC (Bld) 32.6 % [facility] MCH (RBC) [Entitic mass] 29.4 pg 26.0 - 34.0 pg [facility] MCHC (RBC) [Mass/Vol] 33.3 g/dL 31.0 - 37.0 g/dL [facility] MCV (RBC) [Entitic vol] 88.1 fL 80.0 - 100.0 fL [facility] Monocytes (Bld) [#/Vol] 0.45 10*3/uL [facility] Monocytes/100 WBC (Bld) 5.2 % [facility] [facility] Neutrophils (Bld) [#/Vol] 5.03 10*3/uL [facility] Neutrophils/100 WBC (Bld) 58.7 % [facility] Nucleated RBC (Bld) [#/Vol] 0.00 10*3/uL [facility] Nucleated RBC/100 WBC (Bld) [Ratio] 0.0 % [facility] Platelet mean volume (Bld) [Entitic vol] 9.5 fL 9.4 - 12.4 fL [facility] Platelets (Bld) [#/Vol] 312 10*3/uL [facility] RBC (Bld) [#/Vol] 4.19 10*6/uL [facility] WBC (Bld) [#/Vol] 8.58 10*3/uL [facility] eah [facility] EKGon 02-18-2023 [facility] Echocardiogram completeon Radiology Study observation (narrative) [facility] Glucose (Bld) [Mass/Vol]on 0 02-18-2023 Glucose [Mass/Vol] 204 mg/dL High 65 - 99 mg/dL [facility] Interpretation and review of laboratory results Abnormal [facility] Glucose [Mass/Vol] 401 mg/dL Critically high 65 - 9 9 mg/dL [facility] Interpretation and review of laboratory results Abnormal [facility] Critical result acte d upon time of test. Test performed at bedside. [facility] Glucose [Mass/Vol] 336 mg/dL High 65 - 99 mg/dL [facility] Interpretation and review of laboratory results Abnormal [facility] Glucose [Mass/Vol] 118 mg/dL High 65 - 99 mg/dL [facility] Interpretation and review of laboratory results Abnormal [facility] Glucose [Mass/Vol] 183 mg/dL High 65 - 99 mg/dL [facility] Interpretation and review of laboratory results Abnormal [facility] NM Myocardial Perfusion Mult iple SPECTOrdered By: Inessa Rao on 02-18-2023 LV Stress Diastolic Volume 51 ml [facility] Work Phone: LV Stress Systolic Volume 7 ml [facility] Work Phone: Stress Nuc Stress EF 86 % [facility] Work Phone: [facility] Work Phone: NM Myocardial Perfusion Mult iple SPECTon 02-18-2023 Patient Info Name: ADDIE ORGAN Age: 47 years : 1975 Gender: Female Ht: 157 cm Wt: 114 kg BSA: 2.30 m2 Exam Date: 02/18/2023 8:50 AM Patient Status: Inpatient Benefits Technician: Aravind Wright, ROGELIO, Davide Mims RT (N), Hayden Mendieta R.T.(N), ROGELIO Exam Type: NM MYOCARDIAL PERFUSION MULTI SPECT Study Info Indications - Chest pain/anginal equiv, high CAD risk, not treadmill candidate Attending Physician: [facility] Nuclear Physician: Inessa Rao MD [id number] Primary Nurse: Sandra Sweeney RN Secondary Nurse: Yolie Turner RN Supervising Stress Physician: Inessa Rao MD BMI: 45.91 kg/m2 Summary 1. Myocardial perfusion imaging is normal. 2. There is no evidence of any significant ischemia. TID is 1.50.. 3. Resting SPECT images and Stress Gated SPECT images obtained post Sestamibi injection. 4. PT not able to prone due to physical limitations. 5. Patient had no chest pain during intravenous pharmacologic (IV Regadenoson) stress/rest myocardial perfusion imaging study. 6. Resting EKG - Snus tachycardia. No significant ST-T wave changes. 7. Stress EKG - No significant ST-T wave changes suggestive of ischemia. 8. No arrhythmias were observed during the examination. 9. Overall left ventricular systolic function was normal without regional wall motion abnormalities. Gated SPECT imaging reveals normal myocardial wall thickening. Both resting and post stress left ventricular ejection fraction are normal, >70%. Left ventricular cavity size is normal. Radiopharmaceutical: Tc-99m Camera Used: MyoSPECT Radiopharmaceutical: Tc-99m Camera Used: GlycoVaxynSPECT Image Protocol Protocol: Rest/Stress 1 Day Rest Radiopharmaceutical Dose: 10.1 mCi Imaging Date & Time: 02/18/2023 8:53 AM Patient Position: supine Stress Radiopharmaceutical Dose: 30.4 mCi Imaging Date & Time: 02/18/2023 10:17 AM Patient Position: supine Injection Date & Time: 02/18/2023 7:40 AM Injection Date & Time: 02/18/2023 9:23 AM Procedure(s): Resting SPECT images and Stress Gated SPECT images obtained post Sestamibi injection. PT not able to prone due to physical limitations. SPECT Results Perfusion Findings Myocardial perfusion imaging is normal. There is no evidence of any significant ischemia. TID is 1.50.. Summed Difference Score: 1 Summed Stress Score: 3 Summed Rest Score: 2 Perfusion Quantitative Results Stress Extent Global Stress Extent: 10 % Rest Extent Global Rest Extent: 6 % Ischemia Extent Global Ischemia Extent: 3 % Functional Results Name Value Normal Stress Stress LV Ejection Fraction 86 % 55-70 Stress LV End Systolic Volume 7.00 ml Nuclear Stress Cardiac Output 4.30 l/min Stress LV End Diastolic Volume 51.00 ml Transient Ischemic Dilatation 1.50 Nuclear Stress Myocardial Mass 104.00 g Functional Results Name Value Normal Rest Resting LV Ejection Fraction 76 % 55-70 Resting LV End Systolic Volume 10.00 ml Nuclear Rest Myocardial Mass 86.00 g Resting LV End Diastolic Volume 42.00 ml Nuclear Rest Cardiac Output 3.20 l/min Functional Findings Overall left ventricular systolic function was normal without regional wall motion abnormalities. Gated SPECT imaging reveals normal myocardial wall thickening. Both resting and post stress left ventricular ejection fraction are normal, >70%. Left ventricular cavity size is normal. Report Signatures MPI SPECT Finalized by Inessa Rao MD on 02/18/2023 11:14 AM Stress Finalized by Inessa Rao MD on 02/18/2023 11:14 AM Stress ECG Details Protocol: LEXISCAN Rest HR: 100 bpm Peak HR: 106 bpm Rest Sys BP: 149 mmHg Peak Sys BP: 154 mmHg Max Pred HR: 175 bpm % Max Pred HR: 61 % Target HR: 149 bpm Max RPP: 16,324 bpm*mm (more content not included)... FUJI SYNAPSE CV Inessa Rao MD - 02/18/2023 Patient Info Name: ADDIE ORGAN Age: 47 years : 1975 Gender: Female Ht: 157 cm Wt: 114 kg BSA: 2.30 m2 Exam Date: 02/18/2023 8:50 AM Patient Status: Inpatient Benefits Technician: Aravind Wright, ROGELIO, Davide Mims, RT (N), Hayden Mendieta R.T.(N), ROGELIO Exam Type: NM MYOCARDIAL PERFUSION MULTI SPECT Study Info Indications - Chest pain/anginal equiv, high CAD risk, not treadmill candidate Attending Physician: [facility] Nuclear Physician: Inessa Rao MD [id number] Primary Nurse: Sandra Sweeney RN Secondary Nurse: Yolie Turner RN Supervising Stress Physician: Inessa Rao MD BMI: 45.91 kg/m2 Summary 1. Myocardial perfusion imaging is normal. 2. There is no evidence of any significant ischemia. TID is 1.50.. 3. Resting SPECT images and Stress Gated SPECT images obtained post Sestamibi injection. 4. PT not able to prone due to physical limitations. 5. Patient had no chest pain during intravenous pharmacologic (IV Regadenoson) stress/rest myocardial perfusion imaging study. 6. Resting EKG - Snus tachycardia. No significant ST-T wave changes. 7. Stress EKG - No significant ST-T wave changes suggestive of ischemia. 8. No arrhythmias were observed during the examination. 9. Overall left ventricular systolic function was normal without regional wall motion abnormalities. Gated SPECT imaging reveals normal myocardial wall thickening. Both resting and post stress left ventricular ejection fraction are normal, >70%. Left ventricular cavity size is normal. Radiopharmaceutical: Tc-99m Camera Used: Vint TrainingT Radiopharmaceutical: Tc-99m Camera Used: MyoSPECT Image Protocol Protocol: Rest/Stress 1 Day Rest Radiopharmaceutical Dose: 10.1 mCi Imaging Date & Time: 02/18/2023 8:53 AM Patient Position: supine Stress Radiopharmaceutical Dose: 30.4 mCi Imaging Date & Time: 02/18/2023 10:17 AM Patient Position: supine Injection Date & Time: 02/18/2023 7:40 AM Injection Date & Time: 02/18/2023 9:23 AM Procedure(s): Resting SPECT images and Stress Gated SPECT images obtained post Sestamibi injection. PT not able to prone due to physical limitations. SPECT Results Perfusion Findings Myocardial perfusion imaging is normal. There is no evidence of any significant ischemia. TID is 1.50.. Summed Difference Score: 1 Summed Stress Score: 3 Summed Rest Score: 2 Perfusion Quantitative Results Stress Extent Global Stress Extent: 10 % Rest Extent Global Rest Extent: 6 % Ischemia Extent Global Ischemia Extent: 3 % Functional Results Name Value Normal Stress Stress LV Ejection Fraction 86 % 55-70 Stress LV End Systolic Volume 7.00 ml Nuclear Stress Cardiac Output 4.30 l/min Stress LV End Diastolic Volume 51.00 ml Transient Ischemic Dilatation 1.50 Nuclear Stress Myocardial Mass 104.00 g Functional Results Name Value Normal Rest Resting LV Ejection Fraction 76 % 55-70 Resting LV End Systolic Volume 10.00 ml Nuclear Rest Myocardial Mass 86.00 g Resting LV End Diastolic Volume 42.00 ml Nuclear Rest Cardiac Output 3.20 l/min Functional Findings Overall left ventricular systolic function was normal without regional wall motion abnormalities. Gated SPECT imaging reveals normal myocardial wall thickening. Both resting and post stress left ventricular ejection fraction are normal, >70%. Left ventricular cavity size is normal. Report Signatures MPI SPECT Finalized by Inessa Rao MD on 02/18/2023 11:14 AM Stress Finalized by Inessa Rao MD on 02/18/2023 11:14 AM Stress ECG Details Protocol: LEXISCAN Rest HR: 100 bpm Peak HR: 106 bpm Rest Sys BP: 149 mmHg Peak Sys BP: 154 mmHg Max Pred HR: 175 bpm % Max Pred HR: 61 % Target HR: 149 bpm Max RPP: 16,324 bpm*mmHg Termination Reason: end of protocol Cardiac Symptoms: Shortness of breath Total Time: 4 min : 0 sec Rest Hernandez BP: 86 mmHg Peak Hernandez BP: 93 mmHg Total Dose: 0.4 mg Resting ECG Resting EKG - Snus tachycardia. No significant ST-T wave changes. Stress ECG Stress EKG - No significant ST-T wave changes suggestive of ischemia. Arrhythmias No arrhythmias were observed during the examination. Stress Summary Patient had no chest pain during intravenous pharmacologic (IV Regadenoson) stress/rest myocardial perfusion imaging study (more content not included)... [facility] Radiology Study observation (narrative) [facility] TroponinOrdered By: Robin chauhan on 02-18-2023 Delta Difference Troponin T -1 ng/L < = -/+ 7 change [facility] Inter Troponin T Delta Change Probable non-acute cardiac injury or late presentation of acute injury. [facility] Interpretation and review of laboratory results Abnormal [facility] Troponin T 19 ng/L Critically high NINF - 14 ng/L [facility] Troponinon 02-18-2023 Interp Troponin T Delta Change Delta troponin requires at least 3 hours between collections. [facility] Interpretation and review of laboratory results Abnormal [facility] Troponin T 18 ng/L Critically high NINF - 14 ng/L [facility] Troponin x 2 (Now and Repeat in 3 hours)on 09-27-2023 Delta Difference Troponin T -2 ng/L < = -/+ 7 change [facility] Interp Troponin T Delta Change Probable non-acute cardiac injury or late presentation of acute injury. [facility] Interpretation and review of laboratory results Abnormal [facility] Troponin T 18 ng/L Critically high NINF - 14 ng/L [facility] CBC Auto Differentialon 01-24 Basophils (Bld) [#/Vol] 0.07 10*3/uL [facility] Basophils/100 WBC (Bld) 0.8 % [facility] Eosinophils (Bld) [#/Vol] 0.21 10*3/uL [facility] Eosinophils/100 WBC (Bld) 2.4 % [facility] Erythrocyte distribution width (RBC) [Entitic vol] 13.0 % 11.6 - 14.8 % [facility] Hematocrit (Bld) [Volume fraction] 37.9 % 36.0 - 46.0 % [facility] Hemoglobin (Bld) [Mass/Vol] 12.8 g/dL 12.0 - 16.0 g/dL [facility] Immature granulocytes (Bld) [#/Vol] 0.04 10*3/uL [facility] Immature granulocytes/100 WBC (Bld) 0.50 % [facility] Comment on above: The IG parameter is the percentage of metamyelocytes, myelocytes and promyelocytes. An immature granulocyte count (IG) of 1% or more suggests the possibility of infection, an IG count of 3% is very likely related to an infection. Lymphocytes (Bld) [#/Vol] 2.28 10*3/uL [facility] Lymphocytes/100 WBC (Bld) 25.9 % [facility] MCH (RBC) [Entitic mass] 29.6 pg 26.0 - 34.0 pg [facility] MCHC (RBC) [Mass/Vol] 33.8 g/dL 31.0 - 37.0 g/dL [facility] MCV (RBC) [Entitic vol] 87.5 fL 80.0 - 100.0 fL [facility] Monocytes (Bld) [#/Vol] 0.46 10*3/uL [facility] Monocytes/100 WBC (Bld) 5.2 % [facility] Neutrophils (Bld) [#/Vol] 5.76 10*3/uL [facility] Neutrophils/100 WBC (Bld) 65.2 % [facility] Nucleated RBC (Bld) [#/Vol] 0.00 10*3/uL [facility] Nucleated RBC/100 WBC (Bld) [Ratio] 0.0 % [facility] Platelet mean volume (Bld) [Entitic vol] 9.4 fL 9.4 - 12.4 fL [facility] Platelets (Bld) [#/Vol] 318 10*3/uL [facility] RBC (Bld) [#/Vol] 4.33 10*6/uL [facility] WBC (Bld) [#/Vol] 8.82 10*3/uL [facility] CT Chest Abdomen Pelvis With out Contraston 02-17-2023 1. No acute findings in the chest, abdomen, or pelvis. 2. Chronic and incidental findings as above. [facility] Workstation ID: [id number] [employer] EXAMINATION: CT CHEST ABDOMEN PELVIS WITHOUT CONTRAST HISTORY: ORDERING SYSTEM PROVIDED HISTORY: chest pain, R abd/flank pain, TECHNOLOGIST PROVIDED HISTORY: Illness/Other Reason for exam: chest pain, R abd/flank pain Encounter Type: Initial Additional signs and symptoms: Patient indicated that she feels that her chest is tight and the room is spinning ORDERING SYSTEM PROVIDED DIAGNOSIS CODES: COMPARISON: Chest radiograph 02/17/2023, CT abdomen and pelvis 01/01/2022, 10/01/2021. TECHNIQUE: Dose reduction techniques were achieved by using automated exposure control and/or adjustment of mA and/or kV according to patient size and/or use of iterative reconstruction technique. Coronal and sagittal MIP (maximum intensity projection) images were performed. FINDINGS: Right-sided chest port tip terminates in the superior vena cava. Left-sided pacemaker is present with leads terminating in the right atrium and right ventricle. Two leads are present in the right ventricle. CHEST: Vasculature: No acute findings. Aorta and pulmonary arteries are normal in caliber. Mediastinum: Small anterior pericardial effusion is likely physiologic. No lymphadenopathy. Thyroid and esophagus are unremarkable. Lungs, airways and pleura: No pleural effusion, focal consolidation, or pneumothorax. Airways are patent. No suspicious pulmonary nodules. Musculoskeletal and Chest wall: No acute or suspicious osseous lesions. Degenerative changes of the thoracic spine. ABDOMEN/PELVIS: Liver and biliary tree: Focal fatty infiltration along the falciform ligament. Gallbladder: Surgically absent. Spleen: Normal. Pancreas: There is fatty atrophy of the pancreas. Adrenal glands: Normal. Kidneys and ureters: Mild perinephric stranding is likely senescent. Nonobstructing nephrolith in the left lower pole. Ureters are normal in course and caliber. Urinary bladder: Underdistended which limits evaluation. Reproductive organs: Prior hysterectomy. Gastrointestinal tract: Lower esophagus and stomach are unremarkable. No bowel obstruction. Normal appendix. Large bowel has a normal appearance. Peritoneal cavity: No free fluid or free air. Vasculature: There are vascular calcifications of the splenic artery and scattered atherosclerotic calcifications of the aorta and branches. No aneurysm. Lymph nodes: No lymphadenopathy. Abdominal wall: There are postsurgical changes of the ventral abdominal wall. Fat-containing umbilical hernia. Musculoskeletal: No acute or suspicious osseous findings. [facility] Bridger Webb MD - 02/17/2023 EXAMINATION: CT CHEST ABDOMEN PELVIS WITHOUT CONTRAST HISTORY: ORDERING SYSTEM PROVIDED HISTORY: chest pain, R abd/flank pain, TECHNOLOGIST PROVIDED HISTORY: Illness/Other Reason for exam: chest pain, R abd/flank pain Encounter Type: Initial Additional signs and symptoms: Patient indicated that she feels that her chest is tight and the room is spinning ORDERING SYSTEM PROVIDED DIAGNOSIS CODES: COMPARISON: Chest radiograph 02/17/2023, CT abdomen and pelvis 01/01/2022, 10/01/2021. TECHNIQUE: Dose reduction techniques were achieved by using automated exposure control and/or adjustment of mA and/or kV according to patient size and/or use of iterative reconstruction technique. Coronal and sagittal MIP (maximum intensity projection) images were performed. FINDINGS: Right-sided chest port tip terminates in the superior vena cava. Left-sided pacemaker is present with leads terminating in the right atrium and right ventricle. Two leads are present in the right ventricle. CHEST: Vasculature: No acute findings. Aorta and pulmonary arteries are normal in caliber. Mediastinum: Small anterior pericardial effusion is likely physiologic. No lymphadenopathy. Thyroid and esophagus are unremarkable. Lungs, airways and pleura: No pleural effusion, focal consolidation, or pneumothorax. Airways are patent. No suspicious pulmonary nodules. Musculoskeletal and Chest wall: No acute or suspicious osseous lesions. Degenerative changes of the thoracic spine. ABDOMEN/PELVIS: Liver and biliary tree: Focal fatty infiltration along the falciform ligament. Gallbladder: Surgically absent. Spleen: Normal. Pancreas: There is fatty atrophy of the pancreas. Adrenal glands: Normal. Kidneys and ureters: Mild perinephric stranding is likely senescent. Nonobstructing nephrolith in the left lower pole. Ureters are normal in course and caliber. Urinary bladder: Underdistended which limits evaluation. Reproductive organs: Prior hysterectomy. Gastrointestinal tract: Lower esophagus and stomach are unremarkable. No bowel obstruction. Normal appendix. Large bowel has a normal appearance. Peritoneal cavity: No free fluid or free air. Vasculature: There are vascular calcifications of the splenic artery and scattered atherosclerotic calcifications of the aorta and branches. No aneurysm. Lymph nodes: No lymphadenopathy. Abdominal wall: There are postsurgical changes of the ventral abdominal wall. Fat-containing umbilical hernia. Musculoskeletal: No acute or suspicious osseous findings. IMPRESSION: 1. No acute findings in the chest, abdomen, or pelvis. 2. Chronic and incidental findings as above. [facility] Workstation ID: [id number] [facility] Radiology Study observation (narrative) [facility] CT Chest Abdomen Pelvis With out ContrastOrdered By: Bridger Webb on 02-17-2023 [facility] Work Phone: CT Head Or Brain Without Con traston 02-17-2023 1. No acute intracranial abnormality. Workstation ID: [id number] 4[employer] EXAMINATION: CT OF THE BRAIN. HISTORY: dizziness COMPARISON: Head CT most recently 06/11/2022 at [place] TECHNIQUE: Axial CT images were acquired from the skull base to the vertex without the use of intravenous contrast. Dose reduction techniques were achieved by using automated exposure control and/or adjustment of mA and/or kV according to patient size and/or use of iterative reconstruction technique. FINDINGS: Orbital structures are intact. Paranasal sinuses and mastoid air cells are clear. There is no evidence for intracranial hemorrhage, mass effect, or hydrocephalus. No extra-axial collection or midline shift is identified. The brain parenchyma is of normal attenuation. Ventricles and cisternal spaces are age appropriate. [facility] [facility] Andrew Martin MD - 02/17/2023 EXAMINATION: CT OF THE BRAIN. HISTORY: dizziness COMPARISON: Head CT most recently 06/11/2022 at [place] TECHNIQUE: Axial CT images were acquired from the skull base to the vertex without the use of intravenous contrast. Dose reduction techniques were achieved by using automated exposure control and/or adjustment of mA and/or kV according to patient size and/or use of iterative reconstruction technique. FINDINGS: Orbital structures are intact. Paranasal sinuses and mastoid air cells are clear. There is no evidence for intracranial hemorrhage, mass effect, or hydrocephalus. No extra-axial collection or midline shift is identified. The brain parenchyma is of normal attenuation. Ventricles and cisternal spaces are age appropriate. IMPRESSION: 1. No acute intracranial abnormality. Workstation ID: [id number] [facility] Radiology Study observation (narrative) [facility] CT Head Or Brain Without Con trastOrdered By: Andrew Martin on 02-17-2023 [facility] Work Phone: Comprehensive metabolic 2000 panelon 02-17-2023 Albumin [Mass/Vol] 3.8 g/dL 3.2 - 5.2 g/dL [facility] ALP [Catalytic activity/Vol] 134 U/L 40 - 150 U/L [facility] ALT [Catalytic activity/Vol] 8 U/L 0-35 U/L [facility] Anion gap [Moles/Vol] 15 mmol/L 10 - 2 0 mmol/L [facility] AST [Catalytic activity/Vol] 9 U/L 0-35 U/L [facility] Bilirubin [Mass/Vol] 0.3 mg/dL 0.0 - 1 .3 mg/dL [facility] Calcium [Mass/Vol] 9.2 mg/dL 8.4 - 10. 2 mg/dL [facility] Chloride [Moles/Vol] 101 mmol/L 98 - 10 8 mmol/L [facility] Creatinine [Mass/Vol] 1.00 mg/dL 0.40 - 1.10 mg/dL [facility] GFR/1.73 sq M.predicted CKD-EPI (S/P/Bld) [Vol rate/Area] 71 - PINF [facility] Comment on above: Estimated GFR was ca lculated using the 2020 CKD-EPI creatinine equation. Glucose [Mass/Vol] 347 mg/dL High 65 - 99 mg/dL [facility] HCO3 [Moles/Vol] 23 mmol/L 21 - 32 mmol/L [facility] Interpretation and review of laboratory results Abnormal [facility] Potassium [Moles/Vol] 4.3 mmol/L 3.5 - 5.1 mmol/L [facility] Protein [Mass/Vol] 6.7 g/dL 6.0 - 8.0 g/dL [facility] Sodium [Moles/Vol] 135 mmol/L 135 - 145 mmol/L [facility] Urea nitrogen [Mass/Vol] 14 mg/dL 8 - 25 mg/dL [facility] Urea nitrogen/Creatinine [Mass ratio] 14.0 mg/mg 10.0 - 20.0 [facility] has implemented the eGFR calculation approach that does not have a coefficient for race that conforms to the NKF-ASN Task Force Recommendations. [facility] ECG 12 Leadon 02-17-2023 Interpretation and review of laboratory results Abnormal [facility] Hayde Pickering DO 02/18/2023 12:40 AM ECG 12 Lead Date/Time: 02/17/2023 9:36 PM Performed by: Hayde Pickering DO Authorized by: Hayde Pickering DO Interpreted by ED attending physician Comparison: compared with previous ECG Rhythm: sinus rhythm BPM: 96 Other findings: LELA Clinical impression: abnormal ECG MUSE [facility] Lipaseon 02-17-2023 Lipase [Catalytic activity/Vol] 35 U/L 15 - 65 U/L [facility] Lipase [Catalytic activity/V ol]on 02-17-2023 Interpretation and review of laboratory results Normal [facility] No Panel Informationon 02-17 Extra Tube Hold for add-ons. [place] Comment on above: Auto resulted. [facility] Troponin x 2 (Now and Repeat in 3 hours)Ordered By: Zainab Echeverria on 02-17-2023 Interpretation and review of laboratory results Abnormal [facility] Troponin T 20 ng/L Critically high NINF - 14 ng/L [facility] Troponin T Interpretation Possible acute cardiac injury. [facility] UrinalysisOrdered By: Jessie Bae on 02-17-2023 Bacteria Auto Ql (U) None Seen None Se en /hpf [facility] Bilirubin Ql (U) Negative Negative [facility] th Clarity Refractometry automated (U) Hazy Abnormal Clear [facility] Color (U) Yellow Colorless, Yellow [facility] Epithelial cells.squamous Auto (Urine sed) [#/Area] 3 [facility] Glucose Auto test strip (U) [Mass/Vol] >=500 Abnormal Negative mg/dL [facility] Hemoglobin Auto test strip Ql (U) Small Abnormal Negative [facility] Hyaline casts Auto (Urine sed) [#/Area] 3-5 Abnormal [facility] Interpretation and review of laboratory results Abnormal [facility] Ketones (U) [Mass/Vol] Negative Negative mg/dL [facility] Leukocyte clumps Auto (Urine sed) [#/Area] Rare Abnormal None Seen /hpf [facility] Leukocyte esterase Auto test strip Ql (U) Negative Negative [facility] Mucus Auto (Urine sed) [#/Area] Rare None Seen, Rare /lpf [facility] Nitrite Auto test strip Ql (U) Negative Negative [facility] pH (U) 5.0 [pH] 5.0 - 7.0 [facility] Protein (U) [Mass/Vol] 100 mg/dL Abnormal Negative [facility] RBC Auto (Urine sed) [#/Area] 2 [facility] Specific gravity (U) [Rel density] 1.025 1.005 - 1.025 [facility] Urobilinogen (U) [Mass/Vol] mg/dL NINF - 2.0 mg/dL [facility] WBC Auto (Urine sed) [#/Area] 11 High [facility] Microscopic examinat ion is performed on all urinalysis samples and only positive findings are reported. The test for blood on the chemical analytic portion of urinalysis may also be positive due to hemoglobinuria and myoglobinuria and if red blood cells are present they are quantified by microscopic examination. [facility] XR Chest 1 Viewon 02-17-2023 Low lung volumes with bronchovascular crowding. No airspace consolidation. Workstation ID: [id number] [employer] EXAMINATION: XR CHEST PA/AP HISTORY: ORDERING SYSTEM PROVIDED HISTORY: Chest Pain, TECHNOLOGIST PROVIDED HISTORY: Illness/Other Reason for exam: Chest Pain Cancer History: u Surgery, RadiationHistory: pacemaker Encounter Type: Initial Additional signs and symptoms: Chest Pain ORDERING SYSTEM PROVIDED DIAGNOSIS CODES: COMPARISON: 01/27/2023 FINDINGS: Low lung volumes with bronchovascular crowding. The lungs are clear of airspace consolidation. There is no appreciable pneumothorax or pleural effusion. The pulmonary vascularity is within normal limits for technique. The cardiomediastinal silhouette is within normal limits. Right-sided port, tip in the superior vena cava. Left-sided pacemaker device noted. [employer] Elvis Mae M D - 02/17/2023 EXAMINATION: XR CHEST PA/AP HISTORY: ORDERING SYSTEM PROVIDED HISTORY: Chest Pain, TECHNOLOGIST PROVIDED HISTORY: Illness/Other Reason for exam: Chest Pain Cancer History: u Surgery, RadiationHistory: pacemaker Encounter Type: Initial Additional signs and symptoms: Chest Pain ORDERING SYSTEM PROVIDED DIAGNOSIS CODES: COMPARISON: 01/27/2023 FINDINGS: Low lung volumes with bronchovascular crowding. The lungs are clear of airspace consolidation. There is no appreciable pneumothorax or pleural effusion. The pulmonary vascularity is within normal limits for technique. The cardiomediastinal silhouette is within normal limits. Right-sided port, tip in the superior vena cava. Left-sided pacemaker device noted. IMPRESSION: Low lung volumes with bronchovascular crowding. No airspace consolidation. Workstation ID: [id number] [facility] Radiology Study observation (narrative) [facility] XR Chest 1 ViewOrdered By: Bud Mae on 02-17-2023 [facility] Work Phone: Insurance Correspondence Off iceon 02-16-2023 Insurance Correspondence Office [id number]#1.00CD:12 7 [facility] Coding Queryon 11-13-2022 Coding Query - From: Elisabet Ocampo RN To: Nory BURGESS; Cc: Leann Vasquez; Sent: 11/05/2022 14:53:56 EDT ! Subject: Coding Query Due Date/Time: 11/13/2022 14:53:00 EDT Caller Name: ADDIE JEAN BAPTISTE; Caller Number: H Medicare rules require specification as to whether an inpatient diagnosis was present at the time of admission. Please clarify if the following diagnosis: UTI Which was documented in: 10/31, 11/01 progress note - 3. UTI (urinary tract infection) (N39.0: Urinary tract infection, site not specified) Urine cx. - pending -IV ceftriaxone - 10/30 Was: [___]Diagnosis was present at time of inpatient admission [___]Diagnosis was not present at time of inpatient admission [___]Other: In responding to this request, please exercise your independent professional judgement. The fact that a question is asked does not imply that any particular answer is desired or expected. Thank you! Elisabet [phone] From: Nory BURGESS To: Elisabet Ocampo RN; Sent: 11/13/2022 12:34:09 EDT Subject: RE: Coding Query Caller Name: ADDIE JEAN BAPTISTE; Caller Number: H Refer to dc addendum [facility] Coding Query - From: Elisabet Ocampo RN [facility]; Cc: Leann Vasquez; Sent: 11/05/2022 14:50:07 EDT ! Subject: Coding Query Due Date/Time: 11/13/2022 14:50:00 EDT Caller Name: ADDIE JEAN BAPTISTE; Caller Number: H Documentation in the medical record indicates this patient has been admitted with or diagnosed as having: Sepsis due to right foot cellulitis status post removal of hardware The following is also documented in the medical record: 11/01 progress note - 1. Sepsis (A41.9: Sepsis, unspecified organism) POA 2/2 R foot cellulitis s/p sx. removal of hardware (placed in the 90's) & UTI -> resolved, -Consult Dr. Box - case d/w Dr. Olivia Box via phone unable to see pt. as this is likely a surgical complication done at an outside facility, defer to transferring back to original surgeon or to tertiary facility if warranted DC summary- sepsis only listed under discharge diagnosis and not documented in hospital course. - Patient presented to the ED for concerns of right foot cellulitis status post recent surgical removal of hardware by Dr. Amaro in [facility] however she was declined transfer to [place] when ED attempted to do so and therefore was admitted to the hospitalist team. Throughout the course of the admission, documentation of this diagnosis has discontinued. Based on your medical judgment, please clarify the diagnosis and document any applicable treatment plan. The diagnosis: [___] Sepsis following a procedure has been ruled out [___] Sepsis following a procedure has been resolved [___]Other: In responding to this request, please exercise your independent professional judgement. The fact that a question is asked does not imply that any particular answer is desired or expected. Thank you! Elisabet [phone] From: Nory BURGESS To: Elisabet Ocampo RN; Sent: 11/13/2022 12:30:57 EDT Subject: RE: Coding Query Caller Name: ADDIE JEAN BAPTISTE; Caller Number: Nicole refer to addendum [facility] Insurance Correspondence Off iceon 11-04-2022 Insurance Correspondence Office [id number]:12 7 [facility] Discharge Instructionson Discharge Instructions [id number]:1 27 [facility] Transfer Documentson 023 Transfer Documents [id number]:1 27 [facility] Capillary Glucose POCon 10-23 Glucose [Mass/Vol] 233 mg/dL High 55-99 [facility] Comment on above: Result Comment: Peter yeh RN/ Performed By: #### 2 [id number] #### [facility] [address] [place] [id number] Glucose [Mass/Vol] 162 mg/dL High [address] [place] [address] Comment on above: Result Comment: Peter yeh RN/ Performed By: #### 2 [id number] #### [facility] [address] [place] [address] Inpatient Clinical Summaryon 11-02-2022 Inpatient Clinical Summary [address] [address] Clinical Summary Person Information: Name: ADDIE JEAN BAPTISTE Age: 47 Years : 1975 Sex: Female PCP: LAURENT FRANCO CNP Marital Status: Phone: [phone] Race: White Ethnicity: Non- or Language: Japanese Visit Id: Visit Reason: Foot pain-swelling; Skin problem; Post surgical problem; SOLO, CELLULITIS OF FOOT, SEPSIS Speciality: Acuity: Enc Type: Inpatient Med Service: Medical Arrival: 10/28/2022 17:37:45 Discharge: Dispo Type: Admitted as IP to this Hosp Address: [address] [facility] [id number] Provider Notes: Diagnosis: 1:Sepsis; 2:Cellulitis of foot; 3:UTI (urinary tract infection); 4:Acute kidney injury superimposed on CKD; 5:Nausea with vomiting; 6:Smoker; 7:Chronic anemia; 8:Insulin dependent type 2 diabetes mellitus; 9:Congestive heart failure; 10:HTN (hypertension); 11:Hyperlipemia; 12:Hypothyroid; 13:SEMAJ (obstructive sleep apnea); 14:Seizure disorder; 15:Schizophrenia; 16:Depression; 17:RLS (restless legs syndrome); 18:Chronic GERD; 19:Morbid obesity; 20:History of MRSA infection; 21:On deep vein thrombosis (DVT) prophylaxis; 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 Problems Active Cellulitis Smoker Lactose intolerance Schizophrenia (09/09/2021) Restless legs (09/09/2021) Polyneuropathy (09/09/2021) Pain of joint of knee (06/10/2021) Hypertensive heart failure (01/15/2021) Fibromyalgia (09/09/2021) Abdominal pain Diabetes Groin pain UTI (urinary tract infection) RLQ abdominal pain Diarrhea Current every day vaping Morbid obesity BMI 45.0-49.9, adult Insulin pump status Type 2 diabetes mellitus Left ankle instability Plantar fasciitis, left Preop examination SEMAJ (obstructive sleep apnea) Chronic back pain Arthritis Kidney stones Dizziness Headache Diabetic neuropathy Chronic GERD Urinary incontinence Hypothyroid Bipolar disorder Depression Hyperlipemia Pacemaker 1 to 12 seizures a year Smoking Status: Current Every Day Smoker Functional Status: Sensory Deficits: History of Falls: Immediately prior to hospitalization Mobility Assistance Prior to Admission: Independent ADLs: Minimal assistance Current Level of Assistance for Self-Care/Mobility: Cognitive Status: Oriented x 3 Allergies codeine (Vomiting) Darvocet-N 100 (Vomiting) Toradol (Vomiting) Ultram (Vomiting) traMADol (Vomiting) insect stings (swelling) Tape (Rash) vancomycin () Contrast Dye (Kidney failure) Latex (Hives) opsite (redness,blisters) ibuprofen (hives) fentaNYL (Nausea) linezolid (Nausea and vomiting) Measurements: Height: 157.48 cm Weight: 112.6 kg Blood Pressure: 119 mmHg / 72 mmHg BMI: 46.45 kg/m2 Procedures No Procedures Documented Immunizations influenza virus vaccine, inactivated (Not Given) Final Med List: acetaminophen (Tylenol 325 mg Tab) By Mouth every 4 hours as needed Pain/Fever. not to exceed 4000 mg/day. acetaminophen-oxycodone (Percocet 5 mg-325 mg oral tablet) 1 Tablets By Mouth every 6 hours as needed Pain 4-7 for 3 Days. not to exceed 4000 mg acetaminophen per day. Refills: 0. albuterol-ipratropium (DuoNeb 2.5 mg-0.5 mg/3 mL Soln-Inh) 3 Milliliter Inhalation 4 times a day as needed Shortness of breath or wheezing. Refills: 0. atorvastatin (atorvastatin 40 mg Tab) 1 Tablets By Mouth at bedtime. cefdinir (cefdinir 300 mg Cap) 1 Capsules By Mouth every 12 hours for 1 Days. Refills: 0. chlorthalidone (chlorthalidone 25 mg Tab) 1 Tablets By Mouth every day. clindamycin (clindamycin 150 mg Cap) 2 Capsules By Mouth 4 times a day for 9 Days. Refills: 0. cyanocobalamin (cyanocobalamin 1000 mcg Tab) 1 Tablets By Mouth every day. Refills: 0. docusate (Colace 100 mg Cap) 1 Capsules By Mouth 2 times a day as needed Constipation. hydrOXYzine (hydrOXYzine pamoate 25 mg Cap) 1 Capsules By Mouth at bedtime as needed Insomnia. insulin lispro (insulin lispro 100 units/mL injectable solution) Subcutaneous. Resume your insulin pump. levetiracetam (levETIRAcetam 750 mg oral tablet, dispersible) 1 Tablets By Mouth 2 times a day. levothyroxine (Synthroid 75 mcg (0.075 mg) Tab) 1 Tablets By Mouth every day. lidocaine topical (lidocaine topical 5% cream) 1 Application Topical 3 times a day. metformin (metformin 1000 mg Tab) 1 Tablets By Mouth 2 times a day. metoprolol (Metoprolol tartrate 25 mg Tab) 1 Tablets By Mouth 2 times a day. nicotine (Nicoderm C-Q 21 mg/24 hr Patch-ER) 1 Patches Transdermal every day for 2 Days. Refills: 0. ondansetron (Zofran 4 mg Tab) 1 Tablets By Mouth every 8 hours as needed Nausea/Vomiting. Refills: 0. pantoprazole (pantoprazole 40 mg Oral EC Tab) 1 Tablets By Mouth every day. pregabalin (pregabalin 100 mg Cap) 1 Capsules By Mouth 2 times a day. quetiapine (quetiapine 400 mg (more content not included)... [facility] Inpatient Patient Summaryon 11-02-2022 Inpatient Patient Summary [place] [address] Patient Discharge Instructions PERSON INFORMATION Name: ADDIE JEAN BAPTISTE Date of : 1975 Current Date: 11/02/2022 10:44:00 PHYSICIANS Admitting Physician: Jacob Damon DO Primary Care Physician: LAURENT FRANCO CNP PCP Comment: Discharge Diagnosis: 1:Sepsis; 2:Cellulitis of foot; 3:UTI (urinary tract infection); 4:Acute kidney injury superimposed on CKD; 5:Nausea with vomiting; 6:Smoker; 7:Chronic anemia; 8:Insulin dependent type 2 diabetes mellitus; 9:Congestive heart failure; 10:HTN (hypertension); 11:Hyperlipemia; 12:Hypothyroid; 13:SEMAJ (obstructive sleep apnea); 14:Seizure disorder; 15:Schizophrenia; 16:Depression; 17:RLS (restless legs syndrome); 18:Chronic GERD; 19:Morbid obesity; 20:History of MRSA infection; 21:On deep vein thrombosis (DVT) prophylaxis; 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 Condition at Discharge: Improved ADDIE JEAN BAPTISTE has been given the following list of follow-up instructions, prescriptions, and patient education materials: PATIENT FOLLOW-UP INFORMATION Diet: Calorie Controlled- 1800 Calorie Diet, Fat Modified- Low cholesterol, Low Sodium- 2000 mg Discharge Activity: Ambulate as tolerated, Activity as tolerated Discharge Restrictions: No driving Wound Care Instructions: Remove Your Dressing In Days Call Your Doctor For: IF UNABLE TO CONTACT YOUR PHYSICIAN AND YOU FEEL IT IS AN EMERGENCY, GO TO THE NEAREST EMERGENCY ROOM OR CALL 911 Home Treatment: Blood glucose monitoring Devices/Equipment: Blood glucose monitor, Infusion pump Special Services: Additional Instructions: Follow-up appointments as written Call your primary surgeon on Thursday morning let them know that you need to be seen as soon as possible for reevaluation of your surgical site and ongoing left foot wounds. Cont wound care to b/l feet per Dr. Amaro Primary Care Physician to provide the following pending test results: Blood culture Follow up: With: Address: When: Called [facility] care office and let them know that you are home to resume your home health care wound care With: Address: When: MARISEL AMARO [address] [place] [address] [address] [place], [place] [id number] Business (1) Within 1 to 2 days Comments: Call for followup appointment - update office on your recent hospital discharge and that you need an urgent follow up appts. Dr. Jarrell aware that you were here. With: Address: When: LAURENT RFANCO [address] [place] [address], [place] [address] Business (1) 11/17/2022 1:15 PM In the event that this physician does not participate in your insurance network, please consult with your insurance company to find a nearby participating provider. Comment: I, ORGANADDIE, have received the attached patient education materials/instructions and have verbalized understanding: Patient Signature ____ Date Clinican/Nurse Signature Date HERE ARE THE MEDICATION CHANGES THAT OCCURRED DURING YOUR HOSPITAL STAY New Medications [facility] 1984, [address] [place], [place] [id number], [phone] acetaminophen-oxycodone (Percocet 5 mg-325 mg oral tablet) 1 Tablets By Mouth every 6 hours as needed Pain 4-7 for 3 Days. not to exceed 4000 mg acetaminophen per day. Refills: 0. Last Dose: Next Dose: cefdinir (cefdinir 300 mg Cap) 1 Capsules By Mouth every 12 hours for 1 Days. Refills: 0. Last Dose: Next Dose: clindamycin (clindamycin 150 mg Cap) 2 Capsules By Mouth 4 times a day for 9 Days. Refills: 0. Last Dose: Next Dose: cyanocobalamin (cyanocobalamin 1000 mcg Tab) 1 Tablets By Mouth every day. Refills: 0. Last Dose: Next Dose: nicotine (Nicoderm C-Q 21 mg/24 hr Patch-ER) 1 Patches Transdermal every day for 2 Days. Refills: 0. Last Dose: Next Dose: Other Medications acetaminophen (Tylenol 325 mg Tab) By Mouth every 4 hours as needed Pain/Fever. not to exceed 4000 mg/day. Last Dose: Next Dose: docusate (Colace 100 mg Cap) 1 Capsules By Mouth 2 times a day as needed Constipation. Last Dose: Next Dose: Medications to Continue Taking That Have Changed Other Medications START: insulin lispro (insulin lispro 100 units/mL injectable solution) Subcutaneous. Resume your insulin pump., through insulin pump 200 units daily Last Dose: Next Dose: STOP: insulin lispro (insulin lispro 100 units/mL injectable solution) Subcutaneous. START: metoprolol (Metoprolol tartrate 25 mg Tab) 1 Tablets By Mouth 2 time (more content not included)... [facility] Interdisciplinary Note - Say e Manageron 11-02-2022 Interdisciplinary Note - [employer] Consultant CRM spoke with patient. Patient was previous rounded on by Nory HENDERSON today and will discharge home today. No family in room. Patient is alert and oriented. Whiteboard updated and CRM contact # provided. Patient states she has a home H/H RN from [employer] that comes for wound care and will continue at discharge. She also states she does not have a ride. Discussed she can call her [employer] for a ride. CRM also updated JAEL Randall on need to call insurance for ride or if too long a wait can use shuttle. Patient denies other needs. [facility] Comment on above: Result Comment: Elec tronically Signed By: Jonas ELDER, Michela\.br\Date and Time Signed: 11/02/22 09:39 EDT Monitor Recordon 11-02-2022 Monitor Record [id number]:[address] [facility] Monitor Record [id number]:[address] [facility] Monitor Record [id number]#[id number]:[address] [facility] Progress Note-Physicianon Progress Note-Physician Assessment/Plan Dr. Jarrell [phone] who is an associate of Dr. Amaro ([facility]) who is the nitrate operator who performed this patient's foot surgery on 10/23 - would like to be updated if pt. is taken to OR -Orthopedic team at [facility] denied transfer as they do not have ID 1. Sepsis (A41.9: Sepsis, unspecified organism) POA 2/2 R foot cellulitis s/p sx. removal of hardware (placed in the 's) & UTI -> resolved, -Aggressive IVF - off -IV Atb -Monitor closely for fl. overload -Bl. cx. - NGTD -See below 2. Cellulitis of foot (L03.119: Cellulitis of unspecified part of limb) Likely 2/2 recent hardware removal -Was placed on augmentin/bactrim on 10/24 - it is unclear if she was taking as prescribed -No drainage from suture line for wound culture -> prior cx. was MRSA on 09/12/22 -Mild improvement -CT of R foot (unable to do MRI 2/2 PPM) -No definite radiographic evidence of osteomyelitis or organized soft tissue fluid collection, nonspecific postoperative changes and soft tissue swelling of the right great toe. -IV clindamycin (given multi atb allergies) - 10/28. -Consult Dr. Box - case d/w Dr. Olivia Box via phone unable to see pt. as this is likely a surgical complication done at an outside facility, defer to transferring back to original surgeon or to tertiary facility if warranted -Consult ID -transition to p.o. clindamycin on discharge, treat for total of [address] suggest more invasive infection, if that is the case then should go back to her primary surgeon. -Consult wound care - pending -Pain mgt., supportive care -Elevate, outline area -PT/OT - pt. refused both therapies, states she is allowed to walk on her foot and that she has no intentions to follow any type of restrictions. 3. UTI (urinary tract infection) (N39.0: Urinary tract infection, site not specified) Urine cx. - pending -IV ceftriaxone - 10/30 4. Acute kidney injury superimposed on CKD (N17.9: Acute kidney failure, unspecified) CKD stage III, Baseline Cr 1.1 - 1.3 - resolved -Renal US & PVR - if Cr worsens -Consult nephrology - if Cr worsens -IVF - 1.5L given - off -Trend BMP -Avoid nephrotoxic medications as much as possible 5. Nausea with vomiting (R11.2: Nausea with vomiting, unspecified) KUB: Non obstructive gas patter, mod. stool burden -Resolved w/ BM on 10/31 -IV zofran/phenergan prn 6. Smoker (F17.200: Nicotine dependence, unspecified, uncomplicated) Pt. has no intention to stop smoking -Nicotine patch 7. Chronic anemia (D64.9: Anemia, unspecified) Baseline hgb. level - 10.0 -Anemia panel - no indication for iron tx. -Hemocult stool - pending -No acute bleeding noted, hemodynamically stable -Trend labs 8. Insulin dependent type 2 diabetes mellitus (E11.9: Type 2 diabetes mellitus without complications) Accuchecks AC/HS w/ SSI prn -A1c - >9.0 in 08/2022 -> poor control -Home regimen: metformin, lispro -Hold metformin while inpt. -Increase Glargine 25u daily - uptitrate as caridad. -Hypoglycemic protocol 9. Congestive heart failure (I50.9: Heart failure, unspecified) Diagnosis listed throughout chart however no echocardiogram on file, last cardiology note makes no mention of this, patient is unable to elaborate. -Metoprolol, chlorthalidone -Hold lisinopril 10. HTN (hypertension) (I10: Essential (primary) hypertension) -Hold lisinopril -Metoprolol, chlorthalidone 11. Hyperlipemia (E78.5: Hyperlipidemia, unspecified) -Atorvastatin 12. Hypothyroid (E03.9: Hypothyroidism, unspecified) -Levothyroxine 13. SEMAJ (obstructive sleep apnea) (G47.33: Obstructive sleep apnea (adult) (pediatric)) Pt. non compliant w/ cpap use 14. Seizure disorder (G40.909: Epilepsy, unspecified, not intractable, without status epilepticus) -Levetiracetam -Seizure precautions 15. Schizophrenia (F20.9: Schizophrenia, unspecified) -Quetiapine, venlafaxine, buspirone 16. Depression (F32.A: Depression, unspecified) -Venlafaxine, 17. RLS (restless legs syndrome) (G25.81: Restless legs syndrome) -Pregabalin 18. Chronic GERD (K21.9: Gastro-esophageal reflux disease without esophagitis) -PPI 19. Morbid obesity (E66.01: Morbid (severe) obesity due to excess calories) BMI 46 -Educated on need for lifestyle modifications with goal of weight loss as obesity has a negative impact on co-morbid conditions 20. History of MRSA infection (Z86.14: Personal history of Methicillin resistant Staphylococcus aureus infection) See above 21. On deep vein thrombosis (DVT) prophylaxis (Z79.899: Other retirement (current) drug therapy) -Hold heparin sq 2/2 downtrending hgb level -SCDs, early ambulation Orders: ceftriaxone + Sodium Chloride 0.9% intravenous solution 50 mL, 1,000 mg = 1 EA, Injection, IV Piggyback, Daily for 4 day(s), Stop date 11/04/22 10:12:00 EDT, NOW, Start date 10/31/22 10:13:00 EDT, 100 mL/hr, Infuse over 30 minute(s) clindamycin, 300 mg = 2 cap(s), Cap, Ora (more content not included)... [facility] Comment on above: Result Comment: Elec tronically Signed By: Nory BURGESS\.br\Date and Time Signed: 11/01/22 08:27 EDT\.br\Electronically Co-Signed By: Nory BURGESS\.br\Date and Time Co-Signed: 11/01/22 10:29 EDT\.br\Electronically Co-Signed By: Juliette PIZANO MD\.br\Date and Time Co-Signed: 11/02/22 09:25 EDT C Urineon 11-01-2022 Bacteria identified Cx Nom (U) Microbiology PROCEDURE: Urine Culture [R1] SOURCE: U CleanCatch BODY SITE: COLLECTED DATE/TIME: 10/30/2022 10:44 EDT RECEIVED DATE/TIME: 10/30/2022 11:10 EDT START DATE/TIME: 10/30/2022 11:10 EDT FREE TEXT SOURCE: Nory BURGESS Renee FINAL REPORTS Final Report [] Verified Date/Time: 11/01/2022 09:10 EDT >100,000 cfu/ml Escherichia coli SUSCEPTIBILITY RESULTS __ LEGEND: S=Susceptible, N/R=Not Reported, Blank=Data not available, or drug not advisable or tested, I=Intermediate, ESBL=Extended spectrum beta-lactamase, R=Resistant, TFG=Thymidine-dependent strain, CHELSEA=Beta-lactamase positive, DOMENIC=mcg/m;(mg/L), S*=Predicted susceptible interp, R*=Predicted resistant interp EC Antibiotic DOMENIC Dilutn DOMENIC Interp Amikacin <=16 S Ampicillin >16 R Ampicillin/ 16/8 I Sulbactam Aztreonam <=4 S Cefazolin <=2 S Cefepime <=2 S Cefoxitin <=8 S Ceftazidime <=1 S Ceftazidime/ <=8 S Avibactam Ceftriaxone <=1 S Ciprofloxacin <=1 S Ertapenem <=0.5 S Gentamicin <=4 S Levofloxacin <=2 S Meropenem <=1 S Nitrofurantoin <=32 S Piperacillin/ <=16 S Tazobactam Tetracycline <=4 S Tigecycline <=2 S Tobramycin <=4 S Trimethoprim/ >2/38 R Sulfa Performing Locations R1: This test was performed at: [facility], [address] [place] [address], [id number] , , [facility] Comment on above: Performed By: #### 2 [id number], [id number], [id number] #### [facility] [address] [place] [address] Capillary Glucose POCon 10-23 Glucose [Mass/Vol] 329 mg/dL High 55-99 [facility] Comment on above: Result Comment: Peter yeh RN/ Performed By: #### 2 [id number] ####[facility] [address] [place] [address] Glucose [Mass/Vol] 295 mg/dL High 55-99 [facility] Comment on above: Result Comment: Peter yeh RN/ Performed By: #### 2 [id number], [id number], [id number], [id number] #### [facility] [address] [place] [address] Glucose [Mass/Vol] 208 mg/dL High 55-99 [facility] Comment on above: Result Comment: Peter eyh RN/ Performed By: #### 2 [id number] ####[facility] [address] [place] [address] Glucose [Mass/Vol] 156 mg/dL High 55-99 [facility] Comment on above: Result Comment: Peter yeh RN/ Performed By: #### 2 [id number], [id number], [id number], [id number] #### [facility] [address] [place] [address] [place] 11-01-2022 Anion gap [Moles/Vol] 12 mmol/L Normal 6-16 [facility] Comment on above: Performed By: #### 2 [id number] #### [facility] [address] [place] [address] Chloride [Moles/Vol] 105 mmol/L Normal 101-111 [facility] Comment on above: Performed By: #### 2 [id number] #### [facility] [address] [place] [address] CO2 [Moles/Vol] 26 mmol/L Normal 21-31 [facility] Comment on above: Performed By: #### 2 [id number] #### [facility] [address] [place] [address] Potassium [Moles/Vol] 3.7 mmol/L Normal 3.5-5.3 [facility] Comment on above: Performed By: #### 2 [id number] #### [facility] [address] [place] [address] Sodium [Moles/Vol] 139 mmol/L Normal 135-145 [facility] Comment on above: Performed By: #### 2 [id number] #### [facility] [address] [place] [address] Monitor Recordon 11-01-2022 Monitor Record [id number]:1 27 Normal [facility] Monitor Record [id number]#1.00CD:1 27 Normal [facility] Monitor Record [id number]#1.00CD:1 27 Normal [facility] Monitor Record [id number]#[id number]:1 27 Normal [facility] BMPon 10-31-2022 Anion gap [Moles/Vol] 8 mmol/L Normal 6-16 [facility] Comment on above: Performed By: #### 2 [id number] #### [facility] [address] [place] [address] Calcium [Mass/Vol] 8.8 mg/dL Low 8.9-11.1 [facility] Comment on above: Performed By: #### 2 [id number] #### [facility] [address] [place] [address] Chloride [Moles/Vol] 108 mmol/L Normal 101-111 [facility] Comment on above: Performed By: #### 2 [id number] #### [facility] [address] [place] [address] CO2 [Moles/Vol] 26 mmol/L Normal 21-31 [facility] Comment on above: Performed By: #### 2 [id number] #### [facility] [address] [place] [address] Creatinine [Mass/Vol] 1.0 mg/dL Normal 0.5-1.3 [facility] Comment on above: Performed By: #### 2 [id number] #### [facility] [address] [place] [address] Glucose [Mass/Vol] 175 mg/dL Normal 55-199 [facility] Comment on above: Result Comment: If t his glucose result represents a fasting glucose, interpretation should refer to the following reference range: 55-99 mg/dL Performed By: #### 2 [id number] #### [facility] [address] [place] [address] Potassium [Moles/Vol] 4.1 mmol/L Normal 3.5-5.3 [facility] Comment on above: Performed By: #### 2 [id number] #### [facility] [address] [place] [address] Sodium [Moles/Vol] 138 mmol/L Normal 135-145 [facility] Comment on above: Performed By: #### 2 [id number] #### [facility] [address] [place] [address] Urea nitrogen [Mass/Vol] 24 mg/dL High 5-21 [facility] Comment on above: Performed By: #### 2 [id number] #### [facility] [address] [place] [address] Urea nitrogen/Creatinine [Mass ratio] 24 No Units High 10-20 [facility] Comment on above: Performed By: #### 2 [id number] #### [facility] [address] [place] [address] CT Lower Extremity w/o Contr ast [place] 10-31-2022 CT Lower Extremity w/o Contrast Right Exam Date/Time: 10/31/2022 10:27 EDT Reason for Exam: Pain Report IMPRESSION: NO DEFINITIVE RADIOGRAPHIC EVIDENCE OF OSTEOMYELITIS OR ORGANIZED SOFT TISSUE FLUID COLLECTION. NONSPECIFIC POSTOPERATIVE CHANGES AND SOFT TISSUE SWELLING OF THE RIGHT GREAT TOE. INFECTION SHOULD BE EXCLUDED CLINICALLY. EXAM: CT Lower Extremity w/o Contrast Right DATE: 10/31/2022 CLINICAL HISTORY: Pain. COMPARISON: None available. TECHNIQUE: Spiral imaging was obtained of the right foot without contrast. Routine multiplanar reconstructions were performed. All CT scans at this facility use dose modulation, iterative reconstruction, and/or weight based dosing when appropriate to reduce radiation dose to as low as reasonably achievable. FINDINGS: Postoperative changes of the right great toe are present with healed arthrodesis of the first MTP joint, and associated osteotomies with a few small calcific fragments dorsal to the neck of the first proximal phalanx, presumably from hardware removal. Moderate ill-defined soft tissue edema is present, especially along the plantar aspect of the fused MTP joint. No significant soft tissue emphysema or evidence of an organized fluid collection (within the limits of a noncontrast study). Mild to moderate nonspecific superficial subcutaneous edema is present of the dorsal lateral hindfoot. There is no acute fracture, definitive radiographic evidence of osteomyelitis, sizable joint effusion, or significant degenerative changes elsewhere. Report Ordering Provider: Nory BURCIAGA FINAL REPORT Dictated: 10/31/2022 10:44 am Eric Mcclure MD Signed (Electronic Signature): 10/31/2022 10:44 am Signed by: Eric Mcclure MD Transcribed by: JAS Technologist: ORB Normal [facility] Capillary Glucose POCon 06-0 Glucose [Mass/Vol] 225 mg/dL High 55-99 [facility] Comment on above: Result Comment: Peter SERNA Performed By: #### 2 [id number] #### [facility] [address] [place] [address] Glucose [Mass/Vol] 195 mg/dL High 55-99 [facility] Comment on above: Result Comment: Peter SERNA Performed By: #### 2 [id number] #### [facility] [address] [place] [address] Glucose [Mass/Vol] 258 mg/dL High 55-99 [facility] Comment on above: Result Comment: Peter SERNA Performed By: #### 2 [id number], [id number] #### [facility] [address] [place] [address] Glucose [Mass/Vol] 197 mg/dL High 55-99 [facility] Comment on above: Result Comment: Peter yeh RN/ Performed By: #### 2 [id number] ####[facility] [address] [place] [address] Consultation Noteon 11-01-19 Consultation Note Patient: BRIDGET JEAN BAPTISTE Age: 47 years Sex: Female : 1975 Associated Diagnoses: None Author: Lawrence Kim M.D History of Present Illness Patient is known to me from a previous evaluation of her left hallux in which she had superficial cultures taken from some denuded skin that had grown MRSA. She was seen at [facility] and discharged on some oral antibiotics. Apparently she had bunion surgery on the right hallux/foot years ago and recently had the hardware removed at [facility]. She developed a postoperative cellulitis she therefore came to [place] and is currently on IV antibiotics. She states the erythema around the surgical incision is looking better. There is no active drainage. Visit culture from here back in August from right foot that grew MRSA. Review of Systems Constitutional: Negative except as documented in history of present illness. ROS reviewed as documented in chart Health Status Allergies: Allergic Reactions (Selected) Severe Codeine- Vomiting. Contrast Dye- Kidney failure. Insect stings- Swelling. Opsite- Redness,blisters. Tape- Rash. Toradol- Vomiting. TraMADol- Vomiting. Ultram- Vomiting. Vancomycin- Kidney & urinary tract disorders except renal failure w major cc. Moderate Darvocet-N 100- Vomiting. Latex- Hives. Severity Not Documented FentaNYL- Nausea. Ibuprofen- Hives. Linezolid- Nausea and vomiting. Current medications: Medications (24) Active Scheduled: (15) atorvastatin 40 mg Tab [F] 40 mg 1 tab(s), Oral, Bedtime chlorthalidone 25 mg Tab [F] 25 mg 1 tab(s), Oral, Daily clindamycin 600 mg/50 mL-D5W + Dextrose 5% Premix Diluent 50 mL 600 mg 50 mL, IV Piggyback, q8hrFT cyanocobalamin 1000 mcg Tab [F] 1,000 microgram 1 tab(s), Oral, Daily insulin glargine (Lantus) 100 units/mL SubQ Yudi 10 mL [F] 25 unit(s) 0.25 mL, SubCutaneous, Bedtime insulin lispro (Humalog) 100 units/mL SubQ Inj [F] 0-10 Units, SubCutaneous, QIDACHS levETIRAcetam 250 mg Tab [F] 750 mg 3 tab(s), Oral, BID levothyroxine 75 mcg (0.075 mg) Tab [F] 75 mcg 1 tab(s), Oral, Daily metoprolol 25 mg Tab [F] 25 mg 1 tab(s), Oral, BID nicotine 21 mg/24 hr Transderm ER Film [F] 21 mg 1 patch(es), TransDermal, Daily pantoprazole [address] Tab [F] 40 mg 1 tab(s), Oral, Daily polyethylene glycol 3350 17 gram [F] 17 gram 1 EA, Oral, Once QUEtiapine 100 mg Tab [F] 800 mg 8 tab(s), Oral, Bedtime Sodium Chloride 0.9% 500 mL 500 mL, IV venlafaxine 150 mg Cap-ER [F] 150 mg 1 cap(s), Oral, Daily Continuous: (1) Sodium Chloride 0.9% 1,000 mL 1,000 mL, IV PRN: (8) acetaminophen 325 mg Tab UD [F] 650 mg 2 tab(s), Oral, q4hr acetaminophen-oxyCODONE 325 mg-5 mg Tab [F] 2 tab(s), Oral, q4hr albuterol-ipratropium 2.5 mg-0.5 mg/3 mL SOLN [F] 3 mL, Inhalation, QID docusate sodium 100 mg Cap [F] 100 mg 1 cap(s), Oral, BID hydrALAZINE 20 mg/mL Inj [F] 10 mg 0.5 mL, IV Push, q6hr HYDROmorphone 1 mg/mL SOLN [F] 1 mg 1 mL, IV Push, q4hr HYDROmorphone 1 mg/mL SOLN [F] 0.5 mg 0.5 mL, IV Push, q4hr ondansetron 2 mg/mL Inj [F] 4 mg 2 mL, IV Push, q6hr Problem list: All Problems 1 to 12 seizures a year / SNOMED CT 2352360198 / Confirmed last 2 weeks just staring spells has been 6 Abdominal pain / SNOMED CT 79938495 / Confirmed Ankle instability / SNOMED CT 8881872 / Confirmed Arthritis / SNOMED CT 0917564 / Confirmed Bipolar disorder / SNOMED CT 54804074 / Confirmed BMI 45.0-49.9, adult / SNOMED CT 7546163386 / Confirmed Pacemaker / SNOMED CT 9290404303 / Confirmed Cellulitis / SNOMED CT 452386254 / Confirmed Chronic back pain / SNOMED CT 558159594 / Confirmed Depression / SNOMED CT 330124831 / Confirmed Diabetes / SNOMED CT 899159955 / Confirmed Diabetic neuropathy / SNOMED CT 958202549 / Confirmed Diarrhea / SNOMED CT 027319126 / Confirmed Dizziness / SNOMED CT 6871112984 / Confirmed Current every day vaping / SNOMED CT 2694257724 / Confirmed Fibromyalgia / SNOMED CT 049022348 / Confirmed Gastric ulcer / SNOMED CT 0085438780 / Confirmed Chronic GERD / SNOMED CT 138051341 / Confirmed Headache / SNOMED CT 08598916 / Confirmed Hyperlipemia / SNOMED CT 74731135 / Confirmed Hypertensive heart failure / SNOMED CT 21767260 / Confirmed Hypothyroid / SNOMED CT 04827119 / Confirmed Groin pain / SNOMED CT 172710604 / Confirmed Left ankle instability / SNOMED CT 6465816812 / Confirmed Insulin pump status / SNOMED CT 5563698006 / Confirmed Lactose intolerance / SNOMED CT 8668606266 / Confirmed Kidney stones / SNOMED CT 483508147 / Confirmed Morbid obesity / SNOMED CT 563025863 / Confirmed SEMAJ (obstructive sleep apnea) / SNOMED CT 101853546 / Confirmed Pain of joint of knee / SNOMED CT 7790325746 / Confirmed Palpitations / SNOMED CT 547070706 / Confirmed Preop examination / SNOMED CT 813186949 / Confirmed Plantar fasciitis of left foot / SNOMED CT 005305614 / Confirmed Plantar fasciitis, left / SNOMED CT 584107624 / Confirmed Poly (more content not included)... Normal [facility] Comment on above: Result Comment: Elec tronically Signed By: Blank M.D, Lawrence S\.br\Date and Time Signed: 10/31/22 09:20 EDT Hct & Hgbon 10-31-2022 Hematocrit (Bld) [Volume fraction] 27.2 % Low 34.0-46.0 [facility] Comment on above: Performed By: #### 2 [id number] #### [facility] [address] [place] [address] Hemoglobin (Bld) [Mass/Vol] 9.4 g/dL Low 12.0-16.0 [facility] Comment on above: Performed By: #### 2 [id number] #### [facility] [address] [place] [address] Interdisciplinary Note - Say e Manageron 10-31-2022 Interdisciplinary Note - [employer] Consultant Pt is awake and alert in bed, previously rounded with Nory HENDERSON. Pt is aware of plan to continue IV antibiotics, await ID to see. Pending therapy evals, pt has been refusing to work with therapy. Pt is from home with daughter and daughter or boyfriend will transport at [place]. Declines any concerns or DC needs. . PCP verified and insurance information reviewed and DME discussed. Contact information provided and white board updated. Normal [facility] Comment on above: Result Comment: Elec tronically Signed By: Taniya ELDER, Michi\.br\Date and Time Signed: 10/31/22 09:05 EDT Interdisciplinary Note - Roberta n 10-31-2022 Interdisciplinary Note - OT 10/31: Attempt at OT eval, Pt refuses and reports she is independent in room and wishes to not participate in therapy. Will discontinue OT orders this date after multiple daily attempts. No OT eval completed. Normal [facility] Monitor Recordon 10-31-2022 Monitor Record [id number]#1.00CD:1 Normal [facility] Monitor Record [id number]#1.00CD:1 Normal [facility] Outside Recordson 10-31-2022 Outside Records [id number]#1.00CD:12 7 Normal [facility] Progress Note-Physicianon Progress Note-Physician Assessment/Plan Dr. Jarrell [phone] who is an associate of Dr. Amaro ([place]) who is the nitrate operator who performed this patient's foot surgery on 10/23 - would like to be updated if pt. is taken to OR -Orthopedic team at [facility] denied transfer as they do not have ID -Order for nursing to review med rec placed 1. Sepsis (A41.9: Sepsis, unspecified organism) POA 2/2 R foot cellulitis s/p sx. removal of hardware (placed in the 90's) -> resolved -Aggressive IVF, IV Atb -Monitor closely for fl. overload -Bl. cx. - prelim - neg -See below 2. Cellulitis of foot (L03.119: Cellulitis of unspecified part of limb) Likely 2/2 recent hardware removal -Was placed on augmentin/bactrim on 10/24 - it is unclear if she was taking as prescribed -IV clindamycin (given multi atb allergies) - 10/28 -Consult Dr. Box - pending -Defer additional diagnostics pending pod. recs -Consult ID - pending -Consult wound care - pending -Pain mgt., supportive care -Elevate, outline area 3. Acute kidney injury superimposed on CKD (N17.9: Acute kidney failure, unspecified) CKD stage III, Baseline Cr 1.1 - 1.3 - resolved -UA - pending -Renal US & PVR - if Cr worsens -Consult nephrology - if Cr worsens -IVF - 1.5L given - off -Trend BMP -Avoid nephrotoxic medications as much as possible 4. Smoker (F17.200: Nicotine dependence, unspecified, uncomplicated) -Nicotine patch 5. Chronic anemia (D64.9: Anemia, unspecified) -Baseline hgb. level - 10.0 -Downtrending hgb level - hold heparin -Anemia panel - no indication for iron tx. -Hemocult stool - pending -No acute bleeding noted, hemodynamically stable -Trend labs 6. Insulin dependent type 2 diabetes mellitus (E11.9: Type 2 diabetes mellitus without complications) Accuchecks AC/HS w/ SSI prn -A1c - >9.0 in 08/2022 -> poor control -Home regimen: metformin, lispro -Hold metformin while inpt. -Increase Glargine 25u daily - uptitrate as caridad. -Hypoglycemic protocol 7. Congestive heart failure (I50.9: Heart failure, unspecified) Diagnosis listed throughout chart however no echocardiogram on file, last cardiology note makes no mention of this, patient is unable to elaborate. -Metoprolol, chlorthalidone -Hold lisinopril 8. HTN (hypertension) (I10: Essential (primary) hypertension) -Hold lisinopril -Metoprolol, chlorthalidone 9. Hyperlipemia (E78.5: Hyperlipidemia, unspecified) -Atorvastatin 10. Hypothyroid (E03.9: Hypothyroidism, unspecified) -Levothyroxine 11. SEMAJ (obstructive sleep apnea) (G47.33: Obstructive sleep apnea (adult) (pediatric)) Pt. non compliant w/ cpap use 12. Seizure disorder (G40.909: Epilepsy, unspecified, not intractable, without status epilepticus) -Levetiracetam -Seizure precautions 13. Schizophrenia (F20.9: Schizophrenia, unspecified) -Quetiapine, venlafaxine, buspirone 14. Depression (F32.A: Depression, unspecified) -Venlafaxine, 15. RLS (restless legs syndrome) (G25.81: Restless legs syndrome) -Pregabalin 16. Chronic GERD (K21.9: Gastro-esophageal reflux disease without esophagitis) -PPI 17. Morbid obesity (E66.01: Morbid (severe) obesity due to excess calories) BMI 46 -Educated on need for lifestyle modifications with goal of weight loss as obesity has a negative impact on co-morbid conditions. 18. History of MRSA infection (Z86.14: Personal history of Methicillin resistant Staphylococcus aureus infection) See above 19. On deep vein thrombosis (DVT) prophylaxis (Z79.899: Other retirement (current) drug therapy) -Hold heparin sq 2/2 downtrending hgb level -SCDs, early ambulation Orders: insulin glargine, 25 unit(s), Injection-Insulin, SubCutaneous, Bedtime, Routine, Start date 10/30/22 21:00:00 EDT, 10/30/22 10:38:00 EDT polyethylene glycol 3350, 17 gram = 1 EA, Powder-Recon, Oral, Once, Stop date 10/30/22 11:00:00 EDT, Routine, Start date 10/30/22 11:00:00 EDT, 10/30/22 10:32:00 EDT Below the Knee Intermittent Pneumatic Compression Device Communication Order Physician to Nursing Communication Order Physician to Nursing Ferritin Folate Level Iron Level Lactate Dehydrogenase Pad Siderails Resuscitation Status - Full Reticulocyte Count Stool Occult Blood TIBC Calculated UA With Cult Reflex Vitamin B12 Level -Plan discussed w/ patient, nursing staff and CRM. This report was transcribed using voice recognition software. Every effort was made to ensure accuracy, however, inadvertently computerized senior database engineer mistakes may be present. Subjective No acute events overnight. Patient voices no complaints this a.m. Pt. denies CP, pressure, palpitations, N/V, SOB or paresthesia. Review of Systems Constitutional: Negative Eye: Negative. Ear/Nose/Mouth/Throat: Negative. Respiratory: Negative Cardiovascular: Negative. Gastrointestinal: Denies abd pain. Passing flatus. Last bowel movement: unknown - no BM documented since TOA, pt. states 10/29 (more content not included)... Normal [facility] Comment on above: Result Comment: Elec tronically Signed By: Nory BURGESS\.br\Date and Time Signed: 10/30/22 10:42 EDT\.br\Electronically Co-Signed By: Juliette PIZANO MD\.br\Date and Time Co-Signed: 10/31/22 08:19 EDT Progress Note-Physician Nursing staff alerted me that patient is asking to leave AMA. Nursing reports to me that patient has had several aggressive phone conversations with family members and this may be driving her request for AMA. I went to the room she is alert and oriented x4 spheres, we discussed the importance of her ongoing IV antibiotic therapy, awaiting consultation by specialty services podiatry given her ongoing cellulitis, we reviewed the risk of leaving a of AMA including dismemberment, the loss of her foot, up to and including her . Patient verbalized understanding of information provided, she is currently agreeable to stay. Patient denies any questions, emotional support provided. Normal [facility] Comment on above: Result Comment: Elec tronically Signed By: GUALBERTO COTA, Nory\.br\Date and Time Signed: 10/30/22 13:26 EDT\.br\Electronically Co-Signed By: HARINDER STEVENS, Juliette\.br\Date and Time Co-Signed: 10/31/22 08:19 EDT Progress Note-Physician Assessment/Plan Dr. Jarrell [phone] who is an associate of Dr. Amaro ([place]) who is the nitrate operator who performed this patient's foot surgery on 10/23 - would like to be updated if pt. is taken to OR -Orthopedic team at [facility] denied transfer as they do not have ID -Order for nursing to review med rec placed 1. Sepsis (A41.9: Sepsis, unspecified organism) POA 2/2 R foot cellulitis s/p sx. removal of hardware (placed in the 90's) & UTI -> resolved, -Aggressive IVF, IV Atb -Monitor closely for fl. overload -Bl. cx. - prelim - neg -See below Ordered: [facility] Care/Day Moderate 35 Minutes [address]01 2. Cellulitis of foot (L03.119: Cellulitis of unspecified part of limb) Likely 2/2 recent hardware removal -Was placed on augmentin/bactrim on 10/24 - it is unclear if she was taking as prescribed -No drainage from suture line for wound culture -> prior cx. was MRSA on 09/12/22 -Mild improvement -CT of R foot (unable to do MRI 2/2 PPM) - pending -IV clindamycin (given multi atb allergies) - 10/28. -Consult Dr. Box - case d/w Dr. Olivia Box via phone unable to see pt. as this is likely a surgical complication done at an outside facility, defer to transferring back to original surgeon or to tertiary facility if warranted -Consult ID - pending -Consult wound care - pending -Pain mgt., supportive care -Elevate, outline area 3. UTI (urinary tract infection) (N39.0: Urinary tract infection, site not specified) Urine cx. - pending -IV ceftriaxone - 10/30 4. Acute kidney injury superimposed on CKD (N17.9: Acute kidney failure, unspecified) CKD stage III, Baseline Cr 1.1 - 1.3 - resolved -Renal US & PVR - if Cr worsens -Consult nephrology - if Cr worsens -IVF - 1.5L given - off -Trend BMP -Avoid nephrotoxic medications as much as possible 5. Nausea with vomiting (R11.2: Nausea with vomiting, unspecified) KUB: Non obstructive gas patter, mod. stool burden -Pt. refusing miralax, ducolax supp. -IV zofran/phenergan prn 6. Smoker (F17.200: Nicotine dependence, unspecified, uncomplicated) Pt. has no intention to stop smoking -Nicotine patch 7. Chronic anemia (D64.9: Anemia, unspecified) Baseline hgb. level - 10.0 -Downtrending hgb level - hold heparin -Anemia panel - no indication for iron tx. -Hemocult stool - pending -No acute bleeding noted, hemodynamically stable -Trend labs 8. Insulin dependent type 2 diabetes mellitus (E11.9: Type 2 diabetes mellitus without complications) Accuchecks AC/HS w/ SSI prn -A1c - >9.0 in 08/2022 -> poor control -Home regimen: metformin, lispro -Hold metformin while inpt. -Increase Glargine 25u daily - uptitrate as caridad. -Hypoglycemic protocol 9. Congestive heart failure (I50.9: Heart failure, unspecified) Diagnosis listed throughout chart however no echocardiogram on file, last cardiology note makes no mention of this, patient is unable to elaborate. -Metoprolol, chlorthalidone -Hold lisinopril 10. HTN (hypertension) (I10: Essential (primary) hypertension) -Hold lisinopril -Metoprolol, chlorthalidone 11. Hyperlipemia (E78.5: Hyperlipidemia, unspecified) -Atorvastatin 12. Hypothyroid (E03.9: Hypothyroidism, unspecified) -Levothyroxine 13. SEMAJ (obstructive sleep apnea) (G47.33: Obstructive sleep apnea (adult) (pediatric)) Pt. non compliant w/ cpap use 14. Seizure disorder (G40.909: Epilepsy, unspecified, not intractable, without status epilepticus) -Levetiracetam -Seizure precautions 15. Schizophrenia (F20.9: Schizophrenia, unspecified) -Quetiapine, venlafaxine, buspirone 16. Depression (F32.A: Depression, unspecified) -Venlafaxine, 17. RLS (restless legs syndrome) (G25.81: Restless legs syndrome) -Pregabalin 18. Chronic GERD (K21.9: Gastro-esophageal reflux disease without esophagitis) -PPI 19. Morbid obesity (E66.01: Morbid (severe) obesity due to excess calories) BMI 46 -Educated on need for lifestyle modifications with goal of weight loss as obesity has a negative impact on co-morbid conditions. 20. History of MRSA infection (Z86.14: Personal history of Methicillin resistant Staphylococcus aureus infection) See above 21. On deep vein thrombosis (DVT) prophylaxis (Z79.899: Other retirement (current) drug therapy) -Hold heparin sq 2/2 downtrending hgb level -SCDs, early ambulation Orders: ceftriaxone + Sodium Chloride 0.9% intravenous solution 50 mL, 1,000 mg = 1 EA, Injection, IV Piggyback, Daily, NOW, Start date 10/30/22 18:14:00 EDT, 100 mL/hr, Infuse over 30 minute(s) cyanocobalamin, 1,000 microgram = 1 tab(s), Tab, Oral, Daily, Routine, Start date 10/31/22 9:00:00 EDT, 10/30/22 17:51:00 EDT insulin glargine, 25 unit(s) = 0.25 mL, Injection-Insulin, SubCutaneous, Bedtime, Routine, Start date 10/30/22 21:00:00 EDT polyethylene glycol 3350, 17 gram = 1 EA, Powder-Recon, Oral, Once, Stop date 10/30/22 18:00:00 EDT, Routine, Star (more content not included)... Normal [facility] Comment on above: Result Comment: Elec tronically Signed By: Nory BURGESS\.br\Date and Time Signed: 10/31/22 08:04 EDT\.br\Electronically Co-Signed By: Juliette PIZANO MD\.br\Date and Time Co-Signed: 10/31/22 08:18 EDT eGFRon 10-31-2022 GFR/1.73 sq M.predicted among non-blacks MDRD (S/P/Bld) [Vol rate/Area] 71 mL/min/1.73 m2 Normal >=59 [facility] Comment on above: Order Comment: Order added by Discern Expert. Result Comment: Human Resources Receptionist odell kidney disease could be indicated at eGFR's of less than 60 mL/min/1.73m2. Kidney failure is indicated at less than 15 mL/min/1.73m2. Performed By: #### 2 [id number] #### [facility] [address] [place] [address] Auto Diffon 10-30-2022 Basophils/100 WBC (Bld) 0.7 % Normal 0.0-2.0 [facility] Comment on above: Order Comment: Order Added by Abena Expert. Performed By: #### 2 248309, 9605603, 2124893, 37752522 #### [facility] [address] [place] [address] Basophils/Leukocytes Auto (Bld) [Pure # fraction] 0.1 E9/L Normal 0.0-0.2 [facility] Comment on above: Order Comment: Order Added by Abena Expert. Performed By: #### 2 835073, 7449400, 9759972, 43092345 #### [facility] [address] [place] [address] Eosinophils/100 WBC (Bld) 2.3 % Normal 0.0-8.0 [facility] Comment on above: Order Comment: Order Added by Abena Expert. Performed By: #### 2 951666, 1456256, 0192036, 95194270 #### [facility] [address] [place] [address] Eosinophils/Leukocyte s Auto (Bld) [Pure # fraction] 0.2 E9/L Normal 0.0-0.5 [facility] Comment on above: Order Comment: Order Added by Abena Expert. Performed By: #### 2 356950, 5884919, 0596735, 71035053 #### [facility] [address] [place] [address] Lymphocytes/100 WBC (Bld) 25.8 % Normal 14.0-50.0 [facility] Comment on above: Order Comment: Order Added by Discern Expert. Performed By: #### 2 295450, 9647970, 0364984, 01028763 #### [facility] [address] [place] [address] Lymphocytes/Leukocyte s Auto (Bld) [Pure # fraction] 2.2 E9/L Normal 1.0-4.0 [facility] Comment on above: Order Comment: Order Added by Discern Expert. Performed By: #### 2 068074, 4096073, 2863593, 69321223 #### [facility] [address] [place] [address] Monocytes/100 WBC (Bld) 5.3 % Normal 4.0-14.0 [facility] Comment on above: Order Comment: Order Added by Abena Expert. Performed By: #### 2 622066, 6665408, 4632341, 95561735 #### [facility] [address] [place] [address] Monocytes/Leukocytes Auto (Bld) [Pure # fraction] 0.5 E9/L Normal 0.2-1.0 [facility] Comment on above: Order Comment: Order Added by Abena Expert. Performed By: #### 2 578567, 8624810, 2839419, 13460650 #### [facility] [address] [place] [address] Neutrophils/100 WBC (Bld) 65.9 % Normal 36.0-75.0 [facility] Comment on above: Order Comment: Order Added by Abena Expert. Performed By: #### 2 444428, 7087104, 9152970, 11734078 #### [facility] [address] [place] [address] Neutrophils/Leukocyte s Auto (Bld) [Pure # fraction] 5.7 E9/L Normal 2.0-7.5 [facility] Comment on above: Order Comment: Order Added by Abena Expert. Performed By: #### 2 324473, 5725847, 8819011, 33121705 #### [facility] [address] [place] [address] BMPon 06-08-2023 Anion gap [Moles/Vol] 7 mmol/L Normal 6-16 [facility] Comment on above: Performed By: #### 2 336050, 6581787, 5273613, 05490254 #### [facility] [address] [place] [address] Calcium [Mass/Vol] 8.4 mg/dL Low 8.9-11.1 [facility] Comment on above: Performed By: #### 2 126341, 7174810, 7608457, 32717683 #### [facility] [address] [place] [address] Chloride [Moles/Vol] 109 mmol/L Normal 101-111 [facility] Comment on above: Performed By: #### 2 242544, 2258578, 6251986, 57153457 #### [facility] [address] [place] [address] CO2 [Moles/Vol] 25 mmol/L Normal 21-31 [facility] Comment on above: Performed By: #### 2 775439, 0164210, 1380899, 66548940 #### [facility] [address] [place] [address] Creatinine [Mass/Vol] 1.2 mg/dL Normal 0.5-1.3 [facility] Comment on above: Performed By: #### 2 557349, 4310717, 5017511, 37383431 #### [facility] [address] [place] [address] Glucose [Mass/Vol] 236 mg/dL High 55-199 [facility] Comment on above: Result Comment: If t his glucose result represents a fasting glucose, interpretation should refer to the following reference range: 55-99 mg/dL Performed By: #### 2 393836, 0410062, 6496269, 78124120 #### [facility] [address] [place] [address] Potassium [Moles/Vol] 4.6 mmol/L Normal 3.5-5.3 [facility] Comment on above: Performed By: #### 2 979704, 4624911, 6333250, 40666238 #### [facility] [address] [place] [address] Sodium [Moles/Vol] 136 mmol/L Normal 135-145 [facility] Comment on above: Performed By: #### 2 018432, 8292742, 8781720, 36878853 #### [facility] [address] [place] [address] Urea nitrogen [Mass/Vol] 32 mg/dL High 5-21 [facility] Comment on above: Performed By: #### 2 930336, 4416387, 0217928, 63156487 #### [facility] [address] [place] [address] Urea nitrogen/Creatinine [Mass ratio] 27 No Units High 10-20 [facility] Comment on above: Performed By: #### 2 520481, 5571445, 3504059, 07917507 #### [facility] [address] [place] [address] CBC w/ Auto Diffon 3 Erythrocyte distribution width (RBC) [Ratio] 12.7 % Normal 10.9-14.2 [facility] Comment on above: Performed By: #### 2 608953, 4330816, 2553308, 12656787 #### [facility] [address] [place] [address] Hematocrit (Bld) [Volume fraction] 26.0 % Low 34.0-46.0 [facility] Comment on above: Performed By: #### 2 024190, 5263082, 4312088, 85249301 #### [facility] [address] [place] [address] Hemoglobin (Bld) [Mass/Vol] 8.9 g/dL Low 12.0-16.0 [facility] Comment on above: Performed By: #### 2 257373, 3876408, 2304002, 73015358 #### [facility] [address] [place] [address] MCH (RBC) [Entitic mass] 30.3 pg Normal 27.0-34.0 [facility] Comment on above: Performed By: #### 2 847218, 2928843, 5057250, 99027720 #### [facility] [address] [place] [address] MCHC (RBC) [Mass/Vol] 34.1 g/dL Normal 31.4-36.0 [facility] Comment on above: Performed By: #### 2 547359, 5515841, 5600746, 74134760 #### [facility] [address] [place] [address] MCV (RBC) [Entitic vol] 88.9 fL Normal 80.0-100.0 [facility] Comment on above: Performed By: #### 2 070110, 1658868, 3866267, 74305005 #### [facility] [address] [place] [address] Platelet mean volume (Bld) [Entitic vol] 7.8 fL Normal 6.4-10.8 [facility] Comment on above: Performed By: #### 2 197671, 4617791, 3910688, 05918234 #### [facility] [address] [place] [address] Platelets (Bld) [#/Vol] 420.0 E9/L Normal 150.0-500.0 [facility] Comment on above: Performed By: #### 2 352156, 0457213, 9709980, 21227552 #### [facility] [address] [place] [address] RBC (Bld) [#/Vol] 2.9 E12/L Low 4.3-5.9 [facility] Comment on above: Performed By: #### 2 304112, 9511624, 0279985, 72056686 #### [facility] [address] [place] [address] WBC corrected for nucl RBC Auto (Bld) [#/Vol] 8.6 E9/L Normal 4.0-11.0 [facility] Comment on above: Performed By: #### 2 827315, 1077231, 0586914, 02815414 #### [facility] [address] [place] [address] Capillary Glucose POCon Glucose [Mass/Vol] 211 mg/dL High 55-[address] [place] [address] Comment on above: Result Comment: Peter SERNA Performed By: #### 2 310618, 7409721, 0834090, 83240512 #### [facility] [address] [place] [address] Glucose [Mass/Vol] 212 mg/dL High -[address] [place] [address] Comment on above: Result Comment: Peter SERNA Performed By: #### 2 956065, 1313883, 6960333, 23579497 #### [facility] [address] [place] [address] Glucose [Mass/Vol] 260 mg/dL High 55-[address] [place] [address] Comment on above: Result Comment: Peter SERNA Performed By: #### 2 [id number] ####[facility] [address] [place] [address] Glucose [Mass/Vol] 247 mg/dL High [address] [place] [address] Comment on above: Result Comment: Peter SERNA Performed By: #### 2 52737171 ####[facility] [address] [place] [address] Glucose [Mass/Vol] 242 mg/dL High 55-99 [facility] Comment on above: Performed By: #### 2 859639, 2366804, 2515820, 45277959 #### [facility] [address] [place] [address] Discharge Note-Nursingon Discharge Note-Nursing per BEATRIZ Cueto request, I responded to patients room to discuss her abdominal xray and treatment that INFORMATION ASSURANCE ANALYST wanted to provide. I informed her that her xray showed she was full of stool and it is likely what is causing her nausea and vomiting. INFORMATION ASSURANCE ANALYST wants her to take Miralax (refused earlier today) or a suppository to help relive the constipation. Patient refused both treatment options at this time. Will continued to monitor. Normal [facility] Ferritinon 10-30-2022 Ferritin [Mass/Vol] 36 ng/mL Normal 11-307 [facility] Comment on above: Result Comment: NORM ALS MEN <30 YRS 16-132 ng/mL MEN >30 YRS 8-338 ng/mL WOMEN (PREMEN) 6-104 ng/mL WOMEN (POSTMEN) 12-210 ng/mL Performed By: #### 2 045786, 9390032, 7554343, 56504600 #### [facility] [address] [place] [address] Folateon 10-30-2022 Folate [Mass/Vol] 15.0 ng/mL Normal >=6.7 [facility] Comment on above: Performed By: #### 2 880334, 7942110, 8631837, 44357839 #### [facility] [address] [place] [address] Interdisciplinary Note - Say e Manageron 10-30-2022 Interdisciplinary Note - [employer] Consultant Pt is awake in bed, states does not want to be bothered at this time, no family present. Await Podiatry to see and pending therapy evals, CRm following for needs. Normal [facility] Comment on above: Result Comment: Elec tronically Signed By: Taniya ELDER, Michi\.lexx\Date and Time Signed: 10/30/22 09:28 EDT Interdisciplinary Note - Roberta n 10-30-2022 Interdisciplinary Note - OT 10/30: OT eval attempted, Pt refuses. Will try again tomorrow. Normal [facility] Interdisciplinary Note - PTo n 10-30-2022 Interdisciplinary Note - PT Attempted, but pt refused due to illness. Will also hold an await Podiatry consult with their recommendations prior to beginning Normal [facility] Ironon 10-30-2022 Iron [Mass/Vol] 47 microgram/dL Normal 35-153 [facility] Comment on above: Performed By: #### 2 828033, 0565089, 2127520, 45646742 #### [facility] [address] [place] [address] LDHon 10-30-2022 LDH [Catalytic activity/Vol] 119 Int._Unit/L Normal 93-218 [facility] Comment on above: Performed By: #### 2 440724, 6045831, 4042162, 40839123 #### [facility] [address] [place] [address] Monitor Recordon 10-30-2022 Monitor Record [id number]#[id number]:1 27 Normal [facility] Monitor Record [id number]#[id number]:1 27 Normal [facility] Patient Education - Texton 0 10-30-2022 Patient Education - Text Normal [facility] Progress Note-Nurseon 2022 Progress Note-Nurse Patient reported she wanted to leave AMA. Nory, FURS SALESPERSON bedside, discussed risks and benefits of leaving A up to and including and dismemberment. Patient acknowledged same and decided to stay at this time. Normal [facility] Retic Counton 10-30-2022 Reticulocytes/100 RBC (Bld) 1.7 % High 0.5-1.5 [facility] Comment on above: Result Comment: This Reticulocyte Count Has Been Corrected For Anemia Performed By: #### 2 565211, 9509120, 8552608, 39638405 #### [facility] [address] [place] [address] TIBC Calculatedon 10-30-2022 Iron binding capacity [Mass/Vol] 258 microgram/dL Normal 250-400 [facility] Comment on above: Performed By: #### 2 254439, 2728225, 5705843, 61836401 #### [facility] [address] [place] [address] Transferrin [Mass/Vol] 184 mg/dL Low 200-370 [facility] Comment on above: Performed By: #### 2 510579, 8058537, 1539578, 89007415 #### [facility] [address] [place] [address] UA With Cult Reflexon 2022 Bacteria LM Ql (Urine sed) 3+ /HPF Abnormal Trace [facility] Comment on above: Performed By: #### 2 746575, 5533842, 0808438, 30228969 #### [facility] [address] [place] [address] Bilirubin Ql (U) Negative Normal Negative [facility] Comment on above: Performed By: #### 2 338682, 6929018, 1336997, 12999487 #### [facility] [address] [place] [address] Clarity (U) CLOUDY Abnormal Clear [facility] Comment on above: Performed By: #### 2 787952, 3313147, 9902376, 84304620 #### [facility] [address] [place] [address] Color (U) YELLOW Normal Yellow [facility] Comment on above: Performed By: #### 2 490037, 9237168, 4528532, 70655359 #### [facility] [address] [place] [address] Epithelial cells.squamous LM.HPF (Urine sed) [#/Area] 0-2 Normal 0-2 [facility] Comment on above: Performed By: #### 2 262241, 4674859, 9167434, 56586128 #### [facility] [address] [place] [address] Glucose Test strip (U) [Mass/Vol] TRACE Abnormal Negative [facility] Comment on above: Performed By: #### 2 446500, 1739252, 5600344, 34445232 #### [facility] [address] [place] [address] Hemoglobin Ql (U) TRACE Abnormal Negative [facility] Comment on above: Performed By: #### 2 453570, 5288715, 4111044, 79627967 #### [facility] [address] [place] [address] Ketones (U) [Mass/Vol] Negative Normal Negative [facility] Comment on above: Performed By: #### 2 435641, 1123680, 4175518, 41616682 #### [facility] [address] [place] [address] [place].plasma/Lithiu m.RBC (Bld) [Mass ratio] 4-20 Normal 0-3 [facility] Comment on above: Performed By: #### 2 601637, 7722128, 4346694, 73822925 #### [facility] [address] [place] [address] Mucus Ql (Urine sed) TRACE Normal [facility] Comment on above: Performed By: #### 2 780452, 0966750, 5759337, 34250151 #### [facility] [address] [place] [address] Nitrite Ql (U) Negative Normal Negative [facility] Comment on above: Performed By: #### 2 761107, 5853105, 4420651, 73110518 #### [facility] [address] [place] [address] pH (U) 6.0 [pH] Invalid Interpretation Code 5.0-9.0 [facility] Comment on above: Performed By: #### 2 597535, 3686915, 6334905, 61739011 #### [facility] [address] [place] [address] Protein (U) [Mass/Vol] Negative Normal Negative [facility] Comment on above: Performed By: #### 2 713960, 5197944, 0210875, 62661948 #### [facility] [address] [place] [address] Specific gravity (U) [Rel density] 1.025 Invalid Interpretation Code 1.005-1.030 [facility] Comment on above: Performed By: #### 2 317169, 8936302, 5237055, 41685022 #### [facility] [address] [place] [address] Type of Urine collection method Clean Catch Normal [facility] Comment on above: Performed By: #### 2 404735, 6429080, 6553752, 45856467 #### [facility] [address] [place] [address] Urobilinogen Qn (U) 0.2 {Sheyla'U}/dL Normal 0.0-1.0 [facility] Comment on above: Performed By: #### 2 515856, 2460889, 8660423, 48723369 #### [facility] [address] [place] [address] WBC Auto Ql (U) 1+ Abnormal Negative [facility] Comment on above: Performed By: #### 2 488406, 6268143, 9814857, 38264500 #### [facility] [address] [place] [address] WBC LM.HPF (Urine sed) [#/Area] /[HPF] Abnormal 0-5 [facility] Comment on above: Performed By: #### 2 594355, 6513252, 5691252, 64668559 #### [facility] [address] [place] [address] Vit B12on 10-30-2022 Cobalamin (Vitamin B12) [Mass/Vol] 97 pg/mL Normal 50-1500 [facility] Comment on above: Performed By: #### 2 426784, 3871174, 6701428, 19108044 #### [facility] [address] [place] [address] XR Abdomen 1 Viewon 10-31-19 23 XR Abdomen 1 View Exam Date/Time: 10/30/2022 15:40 EDT Reason for Exam: Nausea with vomiting Report IMPRESSION: NONOBSTRUCTIVE BOWEL GAS PATTERN. CLINICAL HISTORY: Nausea with vomiting COMPARISON: CT abdomen pelvis on 06/02/2022. FINDINGS: AP supine abdomen shows unremarkable gas pattern of bowel. There is some eventration of the right hemidiaphragm. There are multiple nondilated small bowel loops in the bilateral abdomen. There are several surgical clips in the right upper abdomen. There is moderate stool burden throughout the colon including rectosigmoid colon. There are several phleboliths in the left pelvic abdomen. Ordering Provider: Nory BURCIAGA FINAL REPORT Dictated: 10/30/2022 4:56 pm Clarence Uriostegui M.D. Signed (Electronic Signature): 10/30/2022 4:56 pm Signed by: Clarence Uriostegui M.D. Transcribed by: JAS Technologist: CHEYANNE, Technical Comments Radiation Dose: Ka,r in mGy = na DAP = na Normal [facility] eGFRon 10-30-2022 GFR/1.73 sq M.predicted among non-blacks MDRD (S/P/Bld) [Vol rate/Area] 57 mL/min/1.73 m2 Low >=59 [facility] Comment on above: Order Comment: Order added by Discern Expert. Result Comment: Human Resources Receptionist odell kidney disease could be indicated at eGFR's of less than 60 mL/min/1.73m2. Kidney failure is indicated at less than 15 mL/min/1.73m2. Performed By: #### 2 080480, 0527674, 1453934, 51087225 #### [facility] [address] [place] [address] Auto Diffon 10-29-2022 Basophils/100 WBC (Bld) 0.7 % Normal 0.0-2.0 [facility] Comment on above: Order Comment: Order Added by Discern Expert. Performed By: #### 2 432538, 9856717, 3337736, 27517008 ####[facility] [address] [place] [address] Basophils/Leukocytes Auto (Bld) [Pure # fraction] 0.1 E9/L Normal 0.0-0.2 [facility] Comment on above: Order Comment: Order Added by Discern Expert. Performed By: #### 2 096556, 6310812, 3441352, 63491984 ####[facility] [address] [place] [address] Eosinophils/100 WBC (Bld) 2.2 % Normal 0.0-8.0 [facility] Comment on above: Order Comment: Order Added by Discern Expert. Performed By: #### 2 129056, 7553401, 4004142, 10784414 ####[address] [place] [address] Eosinophils/Leukocyte s Auto (Bld) [Pure # fraction] 0.2 E9/L Normal 0.0-0.5 [facility] Comment on above: Order Comment: Order Added by Discern Expert. Performed By: #### 2 033124, 9101132, 4039876, 07106380 ####[address] [address] Lymphocytes/100 WBC (Bld) 24.1 % Normal 14.0-50.0 [facility] Comment on above: Order Comment: Order Added by Abena Expert. Performed By: #### 2 459851, 4017257, 3922108, 91466278 ####[address] [address] Lymphocytes/Leukocyte s Auto (Bld) [Pure # fraction] 2.6 E9/L Normal 1.0-4.0 [facility] Comment on above: Order Comment: Order Added by Discern Expert. Performed By: #### 2 624640, 6470645, 7448099, 98268190 ####[address] [address] Monocytes/100 WBC (Bld) 6.5 % Normal 4.0-14.0 [facility] Comment on above: Order Comment: Order Added by Discern Expert. Performed By: #### 2 861620, 1773369, 1410659, 70559006 ####[address] [place] [address] Monocytes/Leukocytes Auto (Bld) [Pure # fraction] 0.7 E9/L Normal 0.2-1.0 [facility] Comment on above: Order Comment: Order Added by Discern Expert. Performed By: #### 2 449509, 8452330, 3973915, 06869081 ####[facility] [address] [place] [address] Neutrophils/100 WBC (Bld) 66.5 % Normal 36.0-75.0 [facility] Comment on above: Order Comment: Order Added by Discern Expert. Performed By: #### 2 596599, 9899557, 7644280, 68715626 ####[address] [place] [address] Neutrophils/Leukocyte s Auto (Bld) [Pure # fraction] 7.1 E9/L Normal 2.0-7.5 [facility] Comment on above: Order Comment: Order Added by Discern Expert. Performed By: #### 2 839471, 8868591, 2227125, 06547423 ####[address] [place] [address] BMPon 10-29-2022 Anion gap [Moles/Vol] 12 mmol/L Normal 6-16 [facility] Comment on above: Order Comment: pt thibodeaux s a line and per phleb Joyeli line packet was given to nursing staff [facility] 10/29/2022 08:38:27 EDT Performed By: #### 2 124828, 9405738, 9913108, 22849695 ####[address] [place] [address] Calcium [Mass/Vol] 8.5 mg/dL Low 8.9-11.1 [facility] Comment on above: Order Comment: pt thibodeaux s a line and per phleb Joyeli line packet was given to nursing staff [facility] 10/29/2022 08:38:27 EDT Performed By: #### 2 605487, 1761764, 2682306, 42796744 ####[address] [place] [address] Chloride [Moles/Vol] 104 mmol/L Normal 101-111 [facility] Comment on above: Order Comment: pt thibodeaux s a line and per phleb Joyeli line packet was given to nursing staff [facility] 10/29/2022 08:38:27 EDT Performed By: #### 2 266036, 0473731, 9298021, [id number] ####[facility] [address] [place] [address] CO2 [Moles/Vol] 26 mmol/L Normal 21-31 [facility] Comment on above: Order Comment: pt thibodeaux s a line and per phleb Joyeli line packet was given to nursing staff [facility] 10/29/2022 08:38:27 EDT Performed By: #### 2 915079, 5629198, 9205977, [id number] ####[facility] [address] [place] [address] Creatinine [Mass/Vol] 1.6 mg/dL High 0.5-1.3 [facility] Comment on above: Order Comment: pt thibodeaux s a line and per phleb Joyeli line packet was given to nursing staff [facility] 10/29/2022 08:38:27 EDT Performed By: #### 2 835579, 5505442, 8453060, [id number] ####[facility] [address] [place] [address] Glucose [Mass/Vol] 219 mg/dL High 55-199 [facility] Comment on above: Order Comment: pt thibodeaux s a line and per phleb Joyeli line packet was given to nursing staff [facility] 10/29/2022 08:38:27 EDT Result Comment: If t his glucose result represents a fasting glucose, interpretation should refer to the following reference range: 55-99 mg/dL Performed By: #### 2 074219, 7872289, 5671282, 51726802 ####[facility] [address] [place] [address] Potassium [Moles/Vol] 4.6 mmol/L Normal 3.5-5.3 [facility] Comment on above: Order Comment: pt thibodeaux s a line and per phleb Joyeli line packet was given to nursing staff [facility] 10/29/2022 08:38:27 EDT Performed By: #### 2 759758, 7323091, 3698796, 84741869 ####[facility] [address] [place] [address] Sodium [Moles/Vol] 137 mmol/L Normal 135-145 [facility] Comment on above: Order Comment: pt thibodeaux s a line and per phleb Joyeli line packet was given to nursing staff [id number] 10/29/2022 08:38:27 EDT Performed By: #### 2 737918, 5744003, 3476271, 84478438 ####[facility] [address] [place] [address] Urea nitrogen [Mass/Vol] 41 mg/dL High 5-21 [facility] Comment on above: Order Comment: pt thibodeaux s a line and per phleb Joyeli line packet was given to nursing staff [id number] 10/29/2022 08:38:27 EDT Performed By: #### 2 855332, 0480493, 9460653, [id number] ####[address] [address] Urea nitrogen/Creatinine [Mass ratio] 26 No Units High 10-20 [facility] Comment on above: Order Comment: pt tihbodeaux s a line and per phleb Joyeli line packet was given to nursing staff [facility] 10/29/2022 08:38:27 EDT Performed By: #### 2 865064, 6996678, 3799164, [id number] ####[address] [place] [address] CBC w/ Auto Diffon 3 Erythrocyte distribution width (RBC) [Ratio] 12.7 % Normal 10.9-14.2 [facility] Comment on above: Performed By: #### 2 594839, 0987464, 4473163, 91275785 ####[address] [place] [address] Hematocrit (Bld) [Volume fraction] 31.1 % Low 34.0-46.0 [facility] Comment on above: Performed By: #### 2 222175, 2446672, 3845254, 13091189 ####[facility] [address] [place] [address] Hemoglobin (Bld) [Mass/Vol] 10.3 g/dL Low 12.0-16.0 [facility] Comment on above: Performed By: #### 2 334171, 2927642, 6542360, 68530212 ####[facility] [address] [place] [address] MCH (RBC) [Entitic mass] 29.9 pg Normal 27.0-34.0 [facility] Comment on above: Performed By: #### 2 526850, 6620087, 4280821, 23625722 ####[address] [address] MCHC (RBC) [Mass/Vol] 33.1 g/dL Normal 31.4-36.0 [facility] Comment on above: Performed By: #### 2 774085, 3854462, 8826272, 38245466 ####[address] [address] MCV (RBC) [Entitic vol] 90.2 fL Normal 80.0-100.0 [facility] Comment on above: Performed By: #### 2 806791, 6538568, 4399811, 41166397 ####[address] [address] Platelet mean volume (Bld) [Entitic vol] 7.3 fL Normal 6.4-10.8 [facility] Comment on above: Performed By: #### 2 066092, 3210551, 5452266, 85788778 ####[address] [address] Platelets (Bld) [#/Vol] 480.0 E9/L Normal 150.0-500.0 [facility] Comment on above: Performed By: #### 2 355136, 9486064, 5063515, 44101132 ####[address] [address] RBC (Bld) [#/Vol] 3.4 E12/L Low 4.3-5.9 [facility] Comment on above: Performed By: #### 2 704572, 6935188, 3156921, 03517706 ####[facility] [address] [place] [address] WBC corrected for nucl RBC Auto (Bld) [#/Vol] 10.7 E9/L Normal 4.0-11.0 [facility] Comment on above: Performed By: #### 2 118782, 3527965, 9002378, 39104349 ####[facility] [address] [place] [address] Capillary Glucose POCon Glucose [Mass/Vol] 205 mg/dL High 55-99 [facility] Comment on above: Result Comment: Peter SERNA Performed By: #### 2 [id number] ####[facility] [address] [place] [address] Glucose [Mass/Vol] 267 mg/dL High 55-99 [facility] Comment on above: Result Comment: Peter SERNA Performed By: #### 2 098523, 9466186, 0705873, 38084292 #### [facility] [address] [place] [address] Glucose [Mass/Vol] 201 mg/dL High 55-99 [facility] Comment on above: Result Comment: Peter SERNA Performed By: #### 2 06922910 ####[facility] [address] [place] [address] Glucose [Mass/Vol] 257 mg/dL High 55-99 [facility] Comment on above: Result Comment: Peter yeh RN/ Performed By: #### 2 791940, 2521330, 0633214, 25038806 #### [facility] [address] [place] [address] GetWell Education Videoon GetWell Education Video Yes Patient Avoiding Infections in the Hospital Normal [facility] Insurance Correspondence Off iceon 10-29-2022 Insurance Correspondence Office [id number]:[address] [facility] Interdisciplinary Note - Say e Manageron 10-29-2022 Interdisciplinary Note - [employer] Consultant Pt is awake and alert in bed, previously rounded with Yarely HENDERSON. pt is from home with daughter and she or Boyfriend will transport [place]. Inpatient status reviewed, Pending therapy evals. Pt had ankle surgery in [place] on . Podiatry and wound and ID to see. Pt is aware of plan to stay in hospital for several days, Inpatient status reviewed. Declines any concerns or DC needs. CRM following . PCP verified and insurance information reviewed and DME discussed. Contact information provided and white board updated. [facility] Comment on above: Result Comment: Elec tronically Signed By: Taniya ELDER, Michi\.lexx\Date and Time Signed: 10/29/22 09:10 EDT Interdisciplinary Note - Gorge singon 10-29-2022 Interdisciplinary Note - Nursing Wound consult completed, no open areas noted. Yarely Elizondo CNP in room during assessment. Agreed with no open areas. R foot surgical wound noted. Sutures intact. Incision line well approximated. Noted on Left great toe and left heel, scabbing. No open areas, no drainage. Normal [facility] Interdisciplinary Note - Roberta n 10-29-2022 Interdisciplinary Note - OT 10/29: OT orders received, chart reviewed. Holding OT eval this date pending podiatry consult and WB status of R LE. Will check back tomorrow. Normal [facility] Monitor Recordon 10-29-2022 Monitor Record [id number]:[address] [facility] Monitor Record [id number]:[address] [facility] Progress Note-Nurseon 2022 Progress Note-Nurse RN called [facility] regarding patient's evening quetiapine dose of 800 mg to clarify before giving as it is a large dose. Dannielle confirmed dose is okay to give as this is patient's home dose and it is a recent prescription. Normal [facility] Progress Note-Physicianon Progress Note-Physician Patient seen at bedside sitting up in bed this morning. Patient with significant erythema with warmness to top of right foot. Her sutures are dry and intact. Complains of pain to site. No drainage is noted. Patient denies any fevers, chills, chest pain, shortness of breath. He did receive a phone call from Dr. Jarrell [phone] who is an associate of Dr. Amaro who is the nitrate operator who performed this patient's foot surgery on 10/23. He was requesting update regarding patient care asked to be kept in the loop as to plan of care for patient. Patient was seen by wound care this morning with no further input regarding bilateral feet. Consult placed to podiatry here and Dr. Box will see patient up some point today. General: NAD Head: no trauma, normocephalic Neck: Supple trachea midline, no adenopathy, no tenderness; increased neck circumference Eye: normal conjunctiva, sclera clear ENMT: oral mucosa moist, no pharyngeal erythema or exudate Cardiovascular: Regular rate and rhythm; normal S1-S2 no murmur; no edema and 1+ pulses bilaterally Respiratory: Lungs CTA, respirations non labored Chest wall: no deformity Skin: warm, dry however her right foot is swollen and erythematous and warm to touch; sutures intact; she has a dry ulceration on her left heel and her left great toe also has a scabbed ulceration Neurological: oriented x 4, LOC appropriate for age, CN II-XII intact, motor strength equal & normal bilaterally, sensation equal & normal bilaterally, speech normal Psychiatric: cooperative, affect appropriate for age, normal judgement, normal psychiatric thoughts Normal [facility] Comment on above: Result Comment: Elec tronically Signed By: Valeri HICKEY\.br\Date and Time Signed: 10/29/22 11:07 EDT\.br\Electronically Co-Signed By: Juliette PIZANO MD\.br\Date and Time Co-Signed: 10/29/22 11:51 EDT eGFRon 10-29-2022 GFR/1.73 sq M.predicted among non-blacks MDRD (S/P/Bld) [Vol rate/Area] 40 mL/min/1.73 m2 Low >=59 [facility] Comment on above: Order Comment: Order added by Discern Expert. Result Comment: Human Resources Receptionist odell kidney disease could be indicated at eGFR's of less than 60 mL/min/1.73m2. Kidney failure is indicated at less than 15 mL/min/1.73m2. Performed By: #### 2 981377, 7592838, 1188632, 15877052 ####[facility] [address] [place] [address] Auto Diffon 10-28-2022 Basophils/100 WBC (Bld) 0.6 % Normal 0.0-2.0 [facility] Comment on above: Order Comment: Order Added by Discern Expert. Performed By: #### 2 [id number] #### [facility] [address] [place] [address] Basophils/Leukocytes Auto (Bld) [Pure # fraction] 0.1 E9/L Normal 0.0-0.2 [facility] Comment on above: Order Comment: Order Added by Discern Expert. Performed By: #### 2 [id number] #### [facility] [address] [place] [address] Eosinophils/100 WBC (Bld) 1.4 % Normal 0.0-8.0 [facility] Comment on above: Order Comment: Order Added by Discern Expert. Performed By: #### 2 [id number] #### [facility] [address] [place] [address] Eosinophils/Leukocyte s Auto (Bld) [Pure # fraction] 0.2 E9/L Normal 0.0-0.5 [facility] Comment on above: Order Comment: Order Added by Discern Expert. Performed By: #### 2 [id number] #### [facility] [address] [place] [address] Lymphocytes/100 WBC (Bld) 14.1 % Normal 14.0-50.0 [facility] Comment on above: Order Comment: Order Added by Discern Expert. Performed By: #### 2 [id number] #### [facility] [address] [place] [address] Lymphocytes/Leukocyte s Auto (Bld) [Pure # fraction] 1.9 E9/L Normal 1.0-4.0 [facility] Comment on above: Order Comment: Order Added by Discern Expert. Performed By: #### 2 [id number] #### [facility] [address] [place] [address] Monocytes/100 WBC (Bld) 4.1 % Normal 4.0-14.0 [facility] Comment on above: Order Comment: Order Added by Discern Expert. Performed By: #### 2 [id number] #### [facility] [address] [place] [address] Monocytes/Leukocytes Auto (Bld) [Pure # fraction] 0.6 E9/L Normal 0.2-1.0 [facility] Comment on above: Order Comment: Order Added by Discern Expert. Performed By: #### 2 [id number] #### [facility] [address] [place] [address] Neutrophils/100 WBC (Bld) 79.8 % High 36.0-75.0 [facility] Comment on above: Order Comment: Order Added by Discern Expert. Performed By: #### 2 [id number] #### [facility] [address] [place] [address] Neutrophils/Leukocyte s Auto (Bld) [Pure # fraction] 10.8 E9/L High 2.0-7.5 [facility] Comment on above: Order Comment: Order Added by Discern Expert. Performed By: #### 2 [id number] #### [facility] [address] [place] [address] CBC w/ Auto Diffon 3 Erythrocyte distribution width (RBC) [Ratio] 12.8 % Normal 10.9-14.2 [facility] Comment on above: Performed By: #### 2 [id number] #### [facility] [address] [place] [address] Hematocrit (Bld) [Volume fraction] 34.7 % Normal 34.0-46.0 [facility] Comment on above: Performed By: #### 2 [id number] #### [facility] [address] [place] [address] Hemoglobin (Bld) [Mass/Vol] 11.6 g/dL Low 12.0-16.0 [facility] Comment on above: Performed By: #### 2 [id number] #### [facility] [address] [place] [address] MCH (RBC) [Entitic mass] 29.7 pg Normal 27.0-34.0 [facility] Comment on above: Performed By: #### 2 [id number] #### [facility] [address] [place] [address] MCHC (RBC) [Mass/Vol] 33.3 g/dL Normal 31.4-36.0 [facility] Comment on above: Performed By: #### 2 [id number] #### [facility] [address] [place] [address] MCV (RBC) [Entitic vol] 89.0 fL Normal 80.0-100.0 [facility] Comment on above: Performed By: #### 2 [id number] #### [facility] [address] [place] [address] Platelet mean volume (Bld) [Entitic vol] 7.9 fL Normal 6.4-10.8 [facility] Comment on above: Performed By: #### 2 [id number] #### [facility] [address] [place] [address] Platelets (Bld) [#/Vol] 458.0 E9/L Normal 150.0-500.0 [facility] Comment on above: Result Comment: Slid e reviewed by ts Unable to obtain accurate platelet count due to platelet clumping. Platelet count estimate appears increased on slide.. Performed By: #### 2 [id number] #### [facility] [address] [place] [address] RBC (Bld) [#/Vol] 3.9 E12/L Low 4.3-5.9 [facility] Comment on above: Performed By: #### 2 [id number] #### [facility] [address] [place] [address] WBC corrected for nucl RBC Auto (Bld) [#/Vol] 13.5 E9/L High 4.0-11.0 [facility] Comment on above: Performed By: #### 2 [id number] #### [facility] [address] [place] [address] CMPon 10-28-2022 Albumin [Mass/Vol] 3.4 g/dL Normal 3.3-5.0 [facility] Comment on above: Performed By: #### 2 [id number] #### [facility] [address] [place] [address] Albumin/Globulin (S) [Mass conc ratio] 0.8 Low 1.1-2.2 [facility] Comment on above: Performed By: #### 2 [id number] #### [facility] [address] [place] [address] ALP [Catalytic activity/Vol] 130 Int._Unit/L High 21-98 [facility] Comment on above: Performed By: #### 2 [id number] #### [facility] [address] [place] [address] ALT No additional P-5'-P [Catalytic activity/Vol] 15 Int._Unit/L Normal 6-46 [facility] Comment on above: Performed By: #### 2 [id number] #### [facility] [address] [place] [address] AST [Catalytic activity/Vol] 12 Int._Unit/L Normal 5-43 [facility] Comment on above: Performed By: #### 2 [id number] #### [facility] [address] [place] [address] Bilirubin [Mass/Vol] 0.4 mg/dL Normal 0.0-1.1 [facility] Comment on above: Performed By: #### 2 [id number] #### [facility] [address] [place] [address] Creatinine [Mass/Vol] 1.7 mg/dL High 0.5-1.3 [facility] Comment on above: Performed By: #### 2 [id number] #### [facility] [address] [place] [address] Globulin (S) [Mass/Vol] 4.5 g/dL High 1.4-4.0 [facility] Comment on above: Performed By: #### 2 [id number] #### [facility] [address] [place] [address] Protein [Mass/Vol] 7.9 g/dL High 6.0-7.8 [facility] Comment on above: Performed By: #### 2 [id number] #### [facility] [address] [place] [address] Urea nitrogen [Mass/Vol] 29 mg/dL High 5-21 [facility] Comment on above: Performed By: #### 2 [id number] #### [facility] [address] [place] [address] Urea nitrogen/Creatinine [Mass ratio] 17 No Units Normal 10-20 [facility] Comment on above: Performed By: #### 2 [id number] #### [facility] [address] [place] [address] Anion gap [Moles/Vol] 17 mmol/L High 6-16 [facility] Comment on above: Performed By: #### 2 [id number] #### [facility] [address] [place] [address] Calcium [Mass/Vol] 8.8 mg/dL Low 8.9-11.1 [facility] Comment on above: Performed By: #### 2 [id number] #### [facility] [address] [place] [address] Chloride [Moles/Vol] 96 mmol/L Low 101-111 [facility] Comment on above: Performed By: #### 2 [id number] #### [facility] [address] [place] [address] CO2 [Moles/Vol] 25 mmol/L Normal 21-31 [facility] Comment on above: Performed By: #### 2 [id number] #### [facility] [address] [place] [address] Glucose [Mass/Vol] 354 mg/dL High 55-199 [facility] Comment on above: Result Comment: If t his glucose result represents a fasting glucose, interpretation should refer to the following reference range: 55-99 mg/dL Performed By: #### 2 [id number] #### [facility] [address] [place] [address] Potassium [Moles/Vol] 3.7 mmol/L Normal 3.5-5.3 [facility] Comment on above: Performed By: #### 2 [id number] #### [facility] [address] [place] [address] Sodium [Moles/Vol] 134 mmol/L Low 135-145 [facility] Comment on above: Performed By: #### 2 [id number] #### [facility] [address] [place] [address] Consent for Treatmenton 0 Consent for Treatment [id number]:1 27 Normal [facility] ED Clinical Summaryon 2022 ED Clinical Summary (Inserted Image. Anna ble to display) [address] [address] ED Clinical Summary Person Information Name: ADDIE JEAN BAPTISTE J [place] Age: 47 Years : 1975 Sex: Female Language: Japanese PCP: LAURENT FRANCO CNP Marital Status: Phone: [phone] Visit Id: Visit Reason: Foot pain-swelling; Skin problem; Post surgical problem; INFECTION Speciality: Acuity: 3 Enc Type: Observation Med Service: Emergency Arrival: 10/28/2022 17:37:45 Discharge: LOS: 000 05:18 Checkin: 10/28/2022 17:37:45 Checkout: 10/28/2022 22:55:17 Dispo Type: Admitted as IP to this [facility] EVENTS: Event Name Event Status Request Date/Time Start Date/Time Complete Date/Time Arrive Complete 10/28/2022 17:37:45 10/28/2022 17:37:45 10/28/2022 17:37:45 Document Home Meds Request 10/28/2022 17:37:45 Triage Complete 10/28/2022 17:37:45 10/28/2022 17:49:21 10/28/2022 17:49:21 Dr Exam Complete 10/28/2022 17:38:46 10/28/2022 17:38:46 10/28/2022 17:38:46 Registration Complete 10/28/2022 17:38:46 10/28/2022 17:44:40 10/28/2022 17:44:40 Reg Complete Request 10/28/2022 17:44:40 Reg Bed Request Complete 10/28/2022 17:44:40 10/28/2022 17:44:40 10/28/2022 17:44:40 Bed Assign Complete 10/28/2022 17:47:05 10/28/2022 17:47:05 10/28/2022 17:47:05 RN Exam Complete 10/28/2022 17:47:05 10/28/2022 17:53:13 10/28/2022 17:53:13 Isolation Screening Request 10/28/2022 17:49:22 Pending Labs Inlab 10/28/2022 18:03:12 Lab Inlab 10/28/2022 18:03:12 Patient Care Request 10/28/2022 18:03:13 Pending Labs Complete 10/28/2022 18:46:42 10/28/2022 18:46:42 10/28/2022 19:14:50 Lab Complete 10/28/2022 18:46:42 10/28/2022 18:46:42 10/28/2022 19:14:50 Pending Labs Complete 10/28/2022 18:56:55 10/28/2022 18:56:55 10/28/2022 18:57:04 Lab Complete 10/28/2022 18:56:55 10/28/2022 18:56:55 10/28/2022 18:57:04 Dr Exam Complete 10/28/2022 18:57:00 10/28/2022 18:57:00 10/28/2022 18:57:00 Registration Complete 10/28/2022 18:57:00 10/28/2022 22:08:57 10/28/2022 22:08:57 Meds Admin Request 10/28/2022 19:24:51 Meds Admin Complete 10/28/2022 19:49:17 10/28/2022 20:57:59 Meds Admin Complete 10/28/2022 19:51:23 10/28/2022 20:58:00 Patient Care Cancel 10/28/2022 19:59:06 10/28/2022 21:30:40 Transfer Cancel 10/28/2022 19:59:06 10/28/2022 21:30:40 Consult Request 10/28/2022 21:30:39 Hospitalist Consult Request 10/28/2022 21:30:40 Patient Care Request 10/28/2022 22:08:58 Patient Care Request 10/28/2022 22:08:58 Patient Care Request 10/28/2022 22:08:58 Patient Care Request 10/28/2022 22:08:58 Inpatient Bed Ready Complete 10/28/2022 22:55:17 10/28/2022 22:55:17 10/28/2022 22:55:17 ADDRESS: [address] [place] [id number] [facility] DOC NOTES: MEDICAL INFORMATION: Prescriptions Given: Medications to Continue with No Changes Other Medications albuterol (Albuterol (Eqv-ProAir HFA) 90 mcg/inh inhalation aerosol) 2 Puffs Inhalation every 4 hours as needed Cough and Congestion. Refills: 1. albuterol-ipratropium (DuoNeb 2.5 mg-0.5 mg/3 mL Soln-Inh) 3 Milliliter Inhalation 4 times a day as needed Shortness of breath or wheezing. Refills: 0. atorvastatin (atorvastatin 40 mg Tab) 1 Tablets By Mouth at bedtime. busPIRone (busPIRone 30 mg oral tablet) 1 Tablets By Mouth 2 times a day. chlorthalidone (chlorthalidone 25 mg Tab) 1 Tablets By Mouth every day. cholecalciferol (cholecalciferol 1000 intl units (25 mcg) oral tablet) 1 Tablets By Mouth every day. Refills: 0. ergocalciferol (ergocalciferol 50,000 intl units Cap) 1 Capsules By Mouth Thursday. hydrOXYzine (hydrOXYzine pamoate 25 mg Cap) 1 Capsules By Mouth at bedtime as needed Insomnia. insulin lispro (insulin lispro 100 units/mL injectable solution) Subcutaneous. levetiracetam (levETIRAcetam 750 mg oral tablet, dispersible) 1 Tablets By Mouth 2 times a day. levothyroxine (Synthroid 75 mcg (0.075 mg) Tab) 1 Tablets By Mouth every day. lisinopril (lisinopril 40 mg Tab) 1 Tablets By Mouth every day. metformin (metformin 1000 mg Tab) 1 Tablets By Mouth 2 times a day. metoprolol (Metoprolol tartrate 25 mg Tab) 1 Tablets By Mouth 2 times a day. ondansetron (Zofran 4 mg Tab) 1 Tablets By Mouth every 8 hours as needed Nausea/Vomiting. Refills: 0. pantoprazole (pantoprazole 40 mg Oral EC Tab) 1 Tablets By Mouth every day. pregabalin (Lyrica 75 mg Cap) 1 Capsules By Mouth 2 times a day. Refills: 0. quetiapine (quetiapine 400 mg oral tablet) 2 Tablets By Mouth at bedtime. Refills: 0. sulfamethoxazole-trimetho prim (Bactrim D.S. 800 mg-160 mg Tab) 1 Tablets By Mouth every 12 hours for 5 Days. START TONIGHT; drink plenty of fluids. Refills: 0. tizanidine (tiZANidine 6 mg Cap) 2 Capsules By Mouth at bedtime. tramadol (traMADOL 50 mg Tab) 1 Tablets By Mouth every day as needed for pain. venlafaxine (venlafaxine 150 mg Cap-ER) 1 Capsules By Mouth every day. PATIENT EDUCATION INFORMATION: Instructions: Follow up: DIAGNOSIS: SOLO (acute kidney injury); Cellulitis of foot; Sepsis Normal [facility] ED Note-Physicianon 10-29-19 ED Note-Physician Patient was signed o ut to me by the outgoing physician. She presented to the ED for concerns of possible infection of the right foot which she had an operation on at [facility] last week. At time of signout she is pending lab work. Lab work does show that she has an elevated leukocytosis that in combination with her tachycardia and apparent wound infection on exam meets sepsis criteria. We will start her on IV clindamycin due to her multiple reported antibiotic allergies. Blood work also shows that she has an elevation in her BUN and creatinine from her baseline suggestive of acute kidney injury. We will give her IV fluids for this. I do believe she would benefit from admission for IV antibiotics and since she had the operation and her orthopedic surgeon are at [facility] we attempted to have her transferred to [facility] for further care. I was informed that the hospitalist at [facility] had spoken to the orthopedic fellow Dr. Mcneal and after their conversation they declined the transfer of the patient due to not having infectious disease on-call at their facility. We attempted to reach back out to Dr. Mcneal or Dr. Amaro to discuss this as it is a localized infection to their postoperative site. Dr. Mcneal called our community living specialist back and told her that he had already spoken to the hospitalist and they did not want the patient at their facility and that they do not have admitting [facility] if the hospitalist does not want the patient there. While less than ideal as this is not the facility that has her orthopedic surgeon I discussed the case with the hospitalist on-call here at [facility] and they accepted the patient into their care for further medical treatment and possible reevaluation of future transfer for evaluation by orthopedic surgeon. Dismal ED diagnoses: sepsis; acute kidney injury Normal [facility] Comment on above: Result Comment: Elec tronically Signed By: Amador Nickerson DO\.br\Date and Time Signed: 10/28/22 21:36 EDT ED Note-Physician Basic Information Time Seen: Preston Lugo DO 10/28/2022 17:38 Chief Complaint Pt had hardware removed from R foot by [facility] in [facility] on . Surgical site now appears infected and is painful. Pt also has wounds to L foot that are painful. Tramadol at 1430. History of Present Illness 47 female presents emergency department by EMS with concern for infected right foot. Patient states that she just had surgery recently at [facility] after having some hardware removed from her right foot as there was concern that this hardware may be contributing to her infection. She was hospitalized discharged home on Augmentin and Bactrim. Patient states that despite this she continues to have redness and body aches and chills and is concerned about continued infection in that right foot. Patient did have this procedure at [facility] its unclear why she came here today other than she was dissatisfied with [facility]. She has been taking which she describes as amoxicillin but in the computer is listed is Augmentin and Bactrim. Patient seems very confused by this and I am not exactly sure what she is taking. She denies any new injuries or other associated symptoms or complaints. No other aggravating or relieving factors no other associated symptoms no other prior treatments or complaints. Family: Reviewed and noncontributory Social: lives at home Review of systems negative unless otherwise specified in the HPI. Physical Exam Vitals & Measurements T: 36.6 ?C(Oral) HR: 121(Peripheral) RR: 20 BP: 104/87 SpO2: 98% HT: 157 cm WT: 114.2 kg BMI: 46.33 General: The patient appears well and in no apparent distress. Patient is resting comfortably on cart. Skin: Significant erythema to the dorsum and plantar surfaces of that right foot starting at the midfoot extending down to the toes. There is a vertically oriented incision on the medial aspect of that dorsal right foot that is clean, dry, intact however there is a lot of redness and swelling and this entire area is tender to palpation. Head: Normocephalic, atraumatic Neck: No JVD Eye: PERRLA, EOMI ENT: Moist mucus membranes Cardiovascular: Tachycardic rate regular rhythm with normal peripheral perfusion Respiratory: No respiratory distress no accessory muscle use no obvious audible wheezing Chest Wall: no deformity Musculoskeletal: As described above. GI: Soft no obvious distention. No rebound or rigidity. No guarding. No tenderness. Neurological: A&O moves all extremities equal strength and symmetry Psychiatric: Cooperative and appropriate Slightly tachycardic rate Medical Decision Making MEDICAL DECISION MAKING Number and Complexity of Problems Differential Diagnosis: MDM Data External documents reviewed: My EKG interpretation: in chart if applicable My CT interpretation: in chart if applicable My X-ray interpretation: in chart if applicable My Ultrasound interpretation: Decision rules/scores evaluated: Discussed with: Treatment and Disposition ED Course: Work-up in the ER has been ordered and pending. Case was discussed with Dr. Kirk Mcneal covering for Dr. Amaro. Who was agreeable to the patient getting labs done here and we will recheck her heart rate. Ultimately patient be signed out to the oncoming physician. He was certain that the patient was discharged on Bactrim and Augmentin and we will need to confirm that with the patient prior to making disposition. Shared decision making: Code status: Assessment/Plan Cellulitis of foot (L03.119: Cellulitis of unspecified part of limb) Orders: Blood Culture Charcoal Blood Culture Charcoal CBC w/ Auto Diff Comprehensive Metabolic Panel Lactic Acid PT & PTT Saline Lock Insert Disposition Plan Discharge Prescription List Prescriptions No active prescription medications Follow-up No qualifying data available Problem List/Past Medical History Ongoing 1 to 12 seizures a year Abdominal pain Arthritis Bipolar disorder BMI 45.0-49.9, adult Cellulitis Chronic back pain Chronic GERD Current every day vaping Depression Diabetes Diabetic neuropathy Diarrhea Dizziness Fibromyalgia Groin pain Headache Hyperlipemia Hypertensive heart failure Hypothyroid Insulin pump status Kidney stones Lactose intolerance Left ankle instability Morbid obesity SEMAJ (obstructive sleep apnea) Pacemaker Pain of joint of knee Plantar fasciitis, left Polyneuropathy Preop examination Restless legs RLQ abdominal pain Schizophrenia Smoker Type 2 diabetes mellitus Urinary incontinence UTI (urinary tract infection) Historical Anxiety Bipolar BP+ - Hypertension COUGH DIABETES MELLITUS Dysuria Human papilloma virus Insomnia Renal tumor Sciatica Procedure/Surgical History Arthroscopy of ankle (12/02/2018), Fasciotomy (07/23/2017), Right Plantar Fasciotomy (01/24/2016), Ankle, ankle surgery ORIF, Cholecystectomy, Colonoscopy, EGD, Eye, Hysterectomy, inserti (more content not included)... Normal [facility] Comment on above: Result Comment: Elec tronically Signed By: Preston Lugo DO\.br\Date and Time Signed: 10/28/22 18:30 EDT ED Patient Education Noteon 10-28-2022 ED Patient Education Note Normal [facility] ED Patient Summaryon 023 ED Patient Summary (Inserted Image. Anna ble to display) [address] [address] Patient Discharge Instructions Person Information Name: ADDIE JEAN BAPTISTE Age: 47 Years Arrival Date: 10/28/2022 17:37:45 Discharge Diagnosis: SOLO (acute kidney injury); Cellulitis of foot; Sepsis Primary Care Physician: LAURENT FRANCO CNP Provider Information Primary Provider: Preston Lugo DO Advanced Dividing Machine Operator Helper:None The exam and treatment you received in the Emergency Department were for an urgent problem and are not intended as complete care. It is important that you follow up with a doctor, nurse practitioner, or physician?s pathology assistant for ongoing care. If your symptoms become worse or you do not improve as expected and you are unable to reach your usual health care provider, you should return to the Emergency Department. We are available 24 hours a day. ADDIE JEAN BAPTISTE has been given the following list of patient education materials, prescriptions and follow-up instructions: Follow-up Instructions: In the event that this physician does not participate in your insurance network, please consult with your insurance company to find a nearby participating provider. Patient Education Materials: A MESSAGE TO ALL PATIENTS REGARDING OPIOIDS PRESCRIPTION OPIOIDS: WHAT YOU NEED TO KNOW Prescription opioids can be used to help relieve joierusd-ns-wtcran pain and are often prescribed following a surgery or injury, or for certain health conditions. These medications can be an important part of the treatment but also come with serious risks. It is important to work with your healthcare provider to make sure you are getting the safest, most effective care. WHAT ARE THE RISKS AND SIDE EFFECTS OF OPIOID USE? Prescription opioids carry serious risks of addiction and overdose, especially with prolonged use. An opioid overdose, often marked by slowed breathing, can cause sudden . The use of prescription opioids can have a number of side effects as well, even when taken as directed: ? Tolerance?meaning you might need to take more of the medication for the same pain relief ? Physical dependence?meaning you have symptoms of withdrawal when a medication is stopped ? Increased sensitivity to pain ? Constipation ? Nausea, vomiting, and dry mouth ? Sleepiness and dizziness ? Confusion ? Depression ? Low levels of testosterone that can result in lower sex drive, energy, and strength ? Itching and sweating RISKS ARE GREATER WITH: ? History of drug misuse, substance use disorder, or overdose ? Mental health conditions (such as depression or anxiety) ? Sleep apnea ? Older age (65 years and older) ? Avoid alcohol while taking prescription opioids. Also, unless specifically advised by your health care provider, medications to avoid include: ? Benzodiazepines (such as Xanax or Valium) ? Muscle relaxants (such as Soma or Flexeril) ? Hypnotics (such as Ambien or Lunesta) ? Other prescription opioids KNOW YOUR OPTIONS Talk to your health care provider about ways to manage your pain that don?t involve prescription opioids. Some of these options may actually work better and have fewer risks and side effects. Options may include: ? Pain relievers such as acetaminophen, ibuprofen, and naproxen ? Some medication that are also used for depression or seizures ? Physical therapy and exercise ? Cognitive behavioral therapy, a psychological, goal-directed approach, in which patients learn how to modify physical, behavioral, and emotional triggers of pain and stress. IF YOU ARE PRESCRIBED OPIOIDS FOR PAIN: ? Never take opioids in greater amounts or more often than prescribed. ? Follow up with your primary health care provider. o Work together to create a plan on how to manage your pain. o Talk about ways to help manage your pain that don?t involve prescription opioids. o Talk about any and all concerns and side effects. ? Help prevent misuse and abuse o Never sell or share prescription opioids. o Never use another person?s prescription opioids. ? Store prescription opioids in a secure place and out of reach of others (this may include visitors, children, friends, and family). ? Safely dispose of unused prescription opioids: Find your community drug take-back program or your pharmacy mail-back program, or flush them down the toilet, following guidance from the Food and Drug Administration (www.fda.gov/Drugs/Resour cesForYou). ? Visit www.cdc.gov/drugoverdose to learn about the risks of opioids abuse and overdose. ? If you believe you may be struggling with addiction, tell your health home care giver and ask for guidance or call SAMHSA?S National Helpline at 5-315-504-RGNH. v Source: US Department of Health and Human Services/Center for Disease Control & Prevention [facility] Medications Given: Medic (more content not included)... Normal [facility] Lactic Acidon 10-28-2022 Lactate [Mass/Vol] 1.6 mmol/L Normal 0.5-2.2 [facility] Comment on above: Performed By: #### 2 [id number] #### [facility] [address] [place] [address] PT & PTTon 10-28-2022 aPTT Coag (PPP) [Time] 29.9 second(s) Normal 25.1-36.5 [facility] Comment on above: Result Comment: Para meter 15 days - 4 weeks 1 - 5 months 6 - 11 months 1 - 5 years 6 - 10 years 11 - 17 years PTT Mean: 35.4 (27.6-45.6) Mean: 33.5 (24.8-40.7) Mean: 32.4 (25.1-40.7) Mean: 31.6 (24.0-39.2) Mean: 31.6 (26.9-38.7) Mean: 31.0 (24.6-38.4) Pediatric Reference ranges were obtained from a study by maty Jones al. prepared from 1437 samples obtained at 7 different centers using the same coagulation reagent and instrumentation as [facility]. Currently there are no coagulation studies available worldwide for children to 14 days, and no normal ranges. Heparin therapeutic range (represented by Anti-Factor Xa activity of 0.2 - 0.4 U/mL) corresponds to PTT of 56.6 - 109.0 sec. Performed By: #### 2 [id number] #### [facility] [address] [place] [address] INR Coag (PPP) [Relative time] 1.2 {INR} Invalid Interpretation Code [facility] Comment on above: Result Comment: INR results are specifically intended to assess patients stabilized on long-term Anticoagulation therapy suggested INR?s ?Less Intensive Anticoagulation? 2.0 ? 3.0 Conventional Range 3.0 ? 4.5 Performed By: #### 2 [id number] #### [facility] [address] [place] [address] PT Coag (PPP) [Time] 13.1 second(s) High 9.4-12.5 [facility] Comment on above: Result Comment: 15 d ays - 4 weeks 1 - 5 months 6 -11 months 1 ? 5 years 6 ? 10 years 11 -17 years Mean: 11.2 (9.5 ? 12.6) Mean: 11.0 (9.7 ? 12.8) Mean: 11.0 (9.8 ? 13.0) Mean: 11.3 (9.9 ? 13.4) Mean: 11.7 (10.0 ? 14.6) Mean: 11.8 (10.0 - 14.1) Pediatric Reference ranges were obtained from a study by maty Jones al. prepared from 1437 samples obtained at 7 different centers using the same coagulation reagent and instrumentation as [facility]. Currently there are no coagulation studies available worldwide for children to 14 days, and no normal ranges. Performed By: #### 2 [id number] #### [facility] [address] [place] [address] Pre-Arrival Noteon 3 Pre-Arrival Note Pre-Arrival Summary Name: [facility], Current Date: 10/28/2022 17:42:54 EDT Gender: Female Date of : Age: 47 Pre-Arrival Type: EMS ETA: 10/28/2022 18:00:00 EDT Primary Care Physician: Presenting Problem: Infected Surgical Site--RM 6 Pre-Arrival User: Milly Long Referring Source: Location: [place] Completion Date/Time: 10/28/2022 00:00:00 [facility] Emergency Department Pre-Hospital Report Form ____ Vital Signs: Pre-Hospital Report: Treatment in Route: Response to Treatment: Misc. Issues: Normal [facility] eGFRon 10-28-2022 GFR/1.73 sq M.predicted among non-blacks MDRD (S/P/Bld) [Vol rate/Area] 37 mL/min/1.73 m2 Low >=59 [facility] Comment on above: Order Comment: Order added by Discern Expert. Result Comment: Human Resources Receptionist odell kidney disease could be indicated at eGFR's of less than 60 mL/min/1.73m2. Kidney failure is indicated at less than 15 mL/min/1.73m2. Performed By: #### 2 [id number] #### [facility] [address] [place] [address] CBC AUTO DIFFon 10-22-2022 BASO # 0.1 103/ul Normal 0.0-0.1 [facility] Comment on above: Performed By: #### C BC ####[facility] [address] [place] [id number]. Devin Suresh Basophils/100 WBC (Bld) 0.6 % Normal 0.2-2.0 [facility] Comment on above: Performed By: #### C BC ####[facility] [address] [place], [place] [address]Dr. Devin Suresh EO # 0.2 103/ul Normal 0.0-0.7 [facility] Comment on above: Performed By: #### C BC ####[facility] [address] [place], [place] [address]Dr. Devin Suresh Eosinophils/100 WBC (Bld) 1.8 % Normal 0.9-7.0 [facility] Comment on above: Performed By: #### C BC ####[facility] [address] [place], [place] [address]Dr. Devin Suresh Erythrocyte distribution width (RBC) [Ratio] 12.0 % Normal 11.0-15.0 [facility] Comment on above: Performed By: #### C BC ####[facility] [address] [place], [place] [address]Dr. Devin Suresh Hematocrit (Bld) [Volume fraction] 28.3 % Critically low 36.0-48.0 [facility] Comment on above: Performed By: #### C BC ####[facility] [address] [place], [place] [address]Dr. Devin Suresh Hemoglobin (Bld) [Mass/Vol] 9.5 g/dL Critically low 12.0-16.0 [facility] Comment on above: Performed By: #### C BC ####[facility] [address] [place], [place] [address]Dr. Devin Suresh IG # 0.05 10e3/ul Critically high 0.00-0.03 [facility] Comment on above: Performed By: #### C BC ####[facility] [address] [place] [id number]. Devin Suresh IG % 0.6 % Critically high 0.0-0.5 [facility] Comment on above: Performed By: #### C BC ####[facility] [address] [place] [id number]. Devin Kerwin LYMPH # 1.9 103/ul Normal 1.2-3.8 [facility] Comment on above: Performed By: #### C BC ####[facility] [address] [place] [id number]. Tishemily Suresh Lymphocytes/100 WBC (Bld) 20.4 % Critically low 20.5-60.0 [facility] Comment on above: Performed By: #### C BC ####[facility] [address] [place] [address]Dr. Devin Suresh MANUAL DIFF REQ NO Normal [facility] Comment on above: Performed By: #### C BC ####[facility] [address] [place] [id number]. Devin Suresh MCH (RBC) [Entitic mass] 30.6 pg Normal 26.7-34.0 [facility] Comment on above: Performed By: #### C BC ####[facility] [address] [place] [id number]. Devin Suresh MCHC (RBC) [Mass/Vol] 33.6 g/dL Normal 29.9-35.2 [facility] Comment on above: Performed By: #### C BC ####[facility] [address] [place] [id number]. Devin Suresh MCV (RBC) [Entitic vol] 91.3 fL Normal 81.0-99.0 [facility] Comment on above: Performed By: #### C BC ####[facility] [address] [place] [id number]. Devin Kerwin MONO # 0.6 103/ul Normal 0.3-0.8 [facility] Comment on above: Performed By: #### C BC ####[facility] [address] [place], [place] [address]Xe. Devin Suresh Monocytes/100 WBC (Bld) 7.1 % Normal 1.7-12.0 [facility] Comment on above: Performed By: #### C BC ####[facility] [address] [place], [place] [address]Ro. Devin Suresh NEUT # 6.3 103/ul Normal 1.4-6.5 [facility] Comment on above: Performed By: #### C BC ####[facility] [address] [place] [phone]. Devin Suresh Neutrophils/100 WBC (Bld) 69.5 % Normal 43.0-75.0 [facility] Comment on above: Performed By: #### C BC ####[facility] [address] [place] [id number]. Devin Suresh Platelet mean volume (Bld) [Entitic vol] 9.5 fL Normal 9.5-13.5 [facility] Comment on above: Performed By: #### C BC ####[facility] [address] [place] [id number]. Devin Suresh PLT 309 103/ul Normal 150-450 [facility] Comment on above: Performed By: #### C BC ####[facility] [address] [place] [id number]. Devin Suresh RBC 3.10 106/ul Critically low 4.20-5.40 [facility] Comment on above: Performed By: #### C BC ####[facility] [address] [place] [id number]. Devin Suresh WBC 9.1 103/ul Normal 4.0-11.0 [facility] Comment on above: Performed By: #### C BC ####[facility] [address] [place] [id number]. Devin Suresh CT FOOT RT WO CONon 10-23-19 CT FOOT RT WO CON Normal [facility] DRUG SCREEN RAPID (URINE)on 10-22-2022 AMP Negative Normal NEGATIVE [facility] Comment on above: Performed By: #### D RUGRPD ####[facility] [address] [place] [address]Dr. Tishemily Suresh BAR Negative Normal NEGATIVE [facility] Comment on above: Performed By: #### D RUGRPD ####[facility] [address] [place], [place] [address]Dr. Devin Suresh BUP Negative Normal NEGATIVE [facility] Comment on above: Performed By: #### D RUGRPD ####[facility] [address] [place], [place] [address]Dr. Tishemily Suresh BZO Negative Normal NEGATIVE [facility] Comment on above: Performed By: #### D RUGRPD ####[facility] [address] [place], [place] [address]Dr. Tishemily Suresh KATHY Negative Normal NEGATIVE [facility] Comment on above: Performed By: #### D RUGRPD ####[facility] [address] [place], [place] [address]Dr. Devin Suresh CUT-OFFS SEE BELOW Normal [facility] Comment on above: Result Comment: AMP (Amphetamine): 500ng/mL, BAR (Barbituates): 200 ng/mL, BZO (Benzodiazepines): 150 ng/mL, BUP (Buprenorphine): 10 ng/mL, KATHY (Cocaine): 150 ng/mL, mAMP (Methamphetamine): 500 ng/mL, MTD (Methadone): 200 ng/mL, OPI (Opiates): 100 ng/mL, OXY (Oxycodone): 100 ng/mL, PCP (Phencyclidine): 25 ng/mL, PPX (Propoxyphene): 300 ng/mL, THC (Cannabinoids): 50 ng/mL, TCA (Trycyclic Antidepressants): 300 ng/mL Performed By: #### D RUGRPD ####[facility] [address] [place], [place] [address]Dr. Devin Suresh DRUG CUT HEADER DRUG CLASS TEST SYST EM CUT-OFF CONCENTRATIONS ARE FOLLOWS: Normal [facility] Comment on above: Performed By: #### D RUGRPD ####[facility] [address] [place] [id number]. Devin Suresh mAMP Negative Normal NEGATIVE [facility] Comment on above: Performed By: #### D RUGRPD ####[facility] [address] [place] [id number]. Devin Suresh MTD Negative Normal NEGATIVE [facility] Comment on above: Performed By: #### D RUGRPD ####[facility] [address] [place] [id number]. Devin Suresh OPI Negative Normal NEGATIVE [facility] Comment on above: Performed By: #### D RUGRPD ####[facility] [address] [place] [address]Dr. Devin Suresh OXY Negative Normal NEGATIVE [facility] Comment on above: Performed By: #### D RUGRPD ####[facility] [address] [place] [address]Dr. Devin Suresh PCP Negative Normal NEGATIVE [facility] Comment on above: Performed By: #### D RUGRPD ####[facility] [address] [place], [place] [address]Dr. Devin Suresh PPX Negative Normal NEGATIVE [facility] Comment on above: Performed By: #### D RUGRPD ####[facility] [address] [place] [address]Dr. Devin Suresh TCA Positive Abnormal NEGATIVE [facility] Comment on above: Performed By: #### D RUGRPD ####[facility] [address] [place] [address]Dr. Devin Suresh THC Negative Normal NEGATIVE [facility] Comment on above: Performed By: #### D RUGRPD ####[facility] [address] [place] [address]Dr. Devin Kerwin POINT OF CARE GLUCOSEon 05-3 Glucose [Mass/Vol] 400 mg/dL Critically high 74-106 T [facility] Comment on above: Performed By: #### P OCGLUC ####[facility] [address] [place], [place] [address]Dr. Devin Kerwin Glucose [Mass/Vol] 284 mg/dL Critically high 74-106 [facility] Comment on above: Performed By: #### P OCGLUC ####[facility] S[address]pmmwcx[address] [place] [address]Dr. Devin Suresh Glucose [Mass/Vol] 161 mg/dL Critically high 74-106 [facility] Comment on above: Performed By: #### P OCGLUC ####[facility] Lfjhmaeirk[address] [place] [address]Dr. Devin Suresh Glucose [Mass/Vol] 283 mg/dL Critically high -106 [facility] Comment on above: Performed By: #### P OCGLUC ####[facility] Kdqtfqcpzn[address] [place], [place] [address]Dr. Devin Suresh Glucose [Mass/Vol] 316 mg/dL Critically high -106 [facility] Comment on above: Performed By: #### P OCGLUC ####[facility] Vjqkicqfgf[address] [place], [place] [address]Dr. Devin Suresh PROF 14(COMP METB)on 023 Albumin [Mass/Vol] 2.4 g/dL Critically low 3.4-5.0 [facility] [place] Comment on above: Performed By: #### C MP ####[facility] Hnpjnohkap13[address] [place], [place] [address]Dr. Devin Suresh Albumin/Globulin [Mass ratio] 0.6 {ratio} Normal [facility] Comment on above: Performed By: #### C MP ####[facility] Mxbghzvisu356[address] [place], [place] [address]Dr. Devin Suresh ALP [Catalytic activity/Vol] 115 U/L Normal 46-116 [facility] Comment on above: Performed By: #### C MP ####[facility] Lsmohxyxrh099[address] [place], [place] [address]Dr. Devin Suresh ALT [Catalytic activity/Vol] 17 U/L Normal 14-59 [facility] Comment on above: Performed By: #### C MP ####[facility] Cnrigiupiy389[address] [place], [place] [address]Dr. Devin Suresh Anion gap [Moles/Vol] 12.2 mmol/L Normal [facility] Comment on above: Performed By: #### C MP ####[facility] Klhxtsiheo[address] [place] [address]Dr. Devin Suresh AST [Catalytic activity/Vol] 15 U/L Normal 15-37 [facility] Comment on above: Performed By: #### C MP ####[facility] Mqfryitdax01[address] [place] [address]Dr. Devin Suresh Bilirubin [Mass/Vol] 0.3 mg/dL Normal 0.2-1.0 [facility] Comment on above: Performed By: #### C MP ####[facility] Hxsemvfbhc76[address] [place], [place] [address]Dr. Devin Suresh Calcium [Mass/Vol] 8.6 mg/dL Normal 8.5-10.1 [facility] Comment on above: Performed By: #### C MP ####[facility] Arohmfmhwr655[address] [place], [place] [address]Dr. Devin Suresh Chloride [Moles/Vol] 104 mmol/L Normal 98-107 [facility] Comment on above: Performed By: #### C MP ####[facility] Ylmtzsklow[address] [place], [place] [address]Dr. Devin Suresh CO2 [Moles/Vol] 25.7 mmol/L Normal 21.0-32.0 [facility] Comment on above: Performed By: #### C MP ####[facility] Lxgxkhqnni906[address] [place], [place] [address]Dr. Tishemily Kerwin Creatinine [Mass/Vol] 1.17 mg/dL Critically high 0.55-1.02 [facility] Comment on above: Performed By: #### C MP ####[facility] Xepwuioree7[address] [place], [place] [address]Dr. Devin Suresh EGFR-AF [place] >60 Normal >=60 [facility] Comment on above: Performed By: #### C MP ####[facility] Gaveuatnpj7[address] [place], [place] [address]Dr. Devin Suresh EGFR-NON AF [place] 50 mL/min/1.73m2 Critically low >=60 [facility] Comment on above: Performed By: #### C MP ####[facility] Gjkckveerr[address] [place] [address]Dr. Devin Suresh Globulin (S) [Mass/Vol] 4.1 g/dL Normal [facility] Comment on above: Performed By: #### C MP ####[facility] Bdvpqwsgmr01[address] [place] [id number]. Devin Suresh Glucose [Mass/Vol] 262 mg/dL Critically high 74-106 [facility] Comment on above: Performed By: #### C MP ####[facility] Avksmqmqeq8445 [place] [address]Dr. Devin Suresh Potassium [Moles/Vol] 3.9 mmol/L Normal 3.5-5.1 [facility] Comment on above: Performed By: #### C MP ####[facility] Lizghdqhlr07[address] [place] [address]Dr. Devin Suresh Protein [Mass/Vol] 6.5 g/dL Normal 6.4-8.2 [facility] Comment on above: Performed By: #### C MP ####[facility] Dydqmmlznn5[address] [place] [address]Dr. Devin Suresh Sodium [Moles/Vol] 138 mmol/L Normal 136-145 [facility] Comment on above: Performed By: #### C MP ####[facility] Lobexjssor04[address] [place] [address]Dr. Devin Suresh Urea nitrogen [Mass/Vol] 23.0 mg/dL Critically high 7.0-18.0 [facility] Comment on above: Performed By: #### C MP ####[facility] Qmjfsxyndm2549 [place] [address]Dr. Devin Suresh Urea nitrogen/Creatinine [Mass ratio] 19.7 mg/mg Normal [facility] Comment on above: Performed By: #### C MP ####[facility] Mamxvqdmrq59[address] [place] [address]Dr. Devin Kerwin ACETONE SERUMon 10-21-2022 ACETONE Negative Normal NEGATIVE [facility] Comment on above: Performed By: #### A CETON ####[facility] Jxdijnxfvi36[address] [place] [address]Dr. Devin Usresh CBC AUTO DIFFon 10-21-2022 BASO # 0.1 103/ul Normal 0.0-0.1 [facility] Comment on above: Performed By: #### C BC ####[facility] Icpsbpvmil100[address] [place], [place] [address]Dr. Devin Suresh Basophils/100 WBC (Bld) 0.4 % Normal 0.2-2.0 [facility] Comment on above: Performed By: #### C BC ####[facility] Ralphzzsbx046[address] [place], [place] [address]Dr. Devin Suresh EO # 0.2 103/ul Normal 0.0-0.7 [facility] Comment on above: Performed By: #### C BC ####[facility] Suplqolcvv239[address] [place], [place] [address]Dr. Devin Suresh Eosinophils/100 WBC (Bld) 1.1 % Normal 0.9-7.0 [facility] Comment on above: Performed By: #### C BC ####[facility] Jxlmjjutzx973[address] [place], [place] [address]Dr. Tishemily Suresh Erythrocyte distribution width (RBC) [Ratio] 12.0 % Normal 11.0-15.0 [facility] Comment on above: Performed By: #### C BC ####[facility] Zfmruyirnz390[address] [place], [place] [address]Dr. Devin Suresh Hematocrit (Bld) [Volume fraction] 34.1 % Critically low 36.0-48.0 [facility] Comment on above: Performed By: #### C BC ####[facility] Fwwxriymfs84[address] [place], [place] [address]Dr. Devin Suresh Hemoglobin (Bld) [Mass/Vol] 11.4 g/dL Critically low 12.0-16.0 [facility] Comment on above: Performed By: #### C BC ####[facility] Oufatrafiu532[address] [place], [place] [address]Dr. Devin Suresh IG # 0.05 10e3/ul Critically high 0.00-0.03 [facility] Comment on above: Performed By: #### C BC ####[facility] Sxuzgbkekf04[address] [place] [address]Dr. Devin Suresh IG % 0.4 % Normal 0.0-0.5 [facility] Comment on above: Performed By: #### C BC ####[facility] Dzfjjkxqvg7[address] [place] [address]Dr. Devin Suresh LYMPH # 1.6 103/ul Normal 1.2-3.8 [facility] Comment on above: Performed By: #### C BC ####[facility] Klamifnafl9[address] [place] [address]Dr. Devin Kerwin Lymphocytes/100 WBC (Bld) 11.9 % Critically low 20.5-60.0 [facility] Comment on above: Performed By: #### C BC ####[facility] Lzfwbilgge83[address] [place] [address]Dr. Tishemily Suresh MANUAL DIFF REQ NO Normal [facility] Comment on above: Performed By: #### C BC ####[facility] Imppefuhwl0[address] [place] [address]Dr. Devin Kerwin MCH (RBC) [Entitic mass] 30.5 pg Normal 26.7-34.0 [facility] Comment on above: Performed By: #### C BC ####[facility] Fcebvucvuk7[address] [place] [address]Dr. Devin Kerwin MCHC (RBC) [Mass/Vol] 33.4 g/dL Normal 29.9-35.2 [facility] Comment on above: Performed By: #### C BC ####[facility] Bxmryckvla08[address] [place] [address]Dr. Devin Kerwin MCV (RBC) [Entitic vol] 91.2 fL Normal 81.0-99.0 [facility] Comment on above: Performed By: #### C BC ####[facility] Alngfovwxe69[address] [place] [address]Dr. Devin Suresh MONO # 0.7 103/ul Normal 0.3-0.8 [facility] Comment on above: Performed By: #### C BC ####[facility] Vstmskdjee9454 [place] [address]Dr. Devin Suresh Monocytes/100 WBC (Bld) 5.4 % Normal 1.7-12.0 [facility] Comment on above: Performed By: #### C BC ####[facility] Hqiaxinisl93[address] [place] [phone]. Devin Suresh NEUT # 11.0 103/ul Critically high 1.4-6.5 [facility] Comment on above: Performed By: #### C BC ####[facility] Ukhigturjj9716 [place] [address]Dr. Devin Suresh Neutrophils/100 WBC (Bld) 80.8 % Critically high 43.0-75.0 [facility] Comment on above: Performed By: #### C BC ####[facility] Yidcvpfyoz907[address] [place], [place] [address]Dr. Devin Suresh Platelet mean volume (Bld) [Entitic vol] 9.1 fL Critically low 9.5-13.5 [facility] Comment on above: Performed By: #### C BC ####[facility] Khnozmgvoy68[address] [place], [place] [address]Dr. Devin Suresh PLT 315 103/ul Normal 150-450 [facility] Comment on above: Performed By: #### C BC ####[facility] Itghpuhnta27[address] [place] [address]Dr. Devin Suresh RBC 3.74 106/ul Critically low 4.20-5.40 [facility] Comment on above: Performed By: #### C BC ####[facility] Sjxegitixn5098 [place] [phone]. Devin Suresh WBC 13.6 103/ul Critically high 4.0-11.0 [facility] Comment on above: Performed By: #### C BC ####[facility] Nkdkboonso3248 [place] [address]Dr. Devin Suresh CRPon 10-21-2022 CRP 12.8 mg/dL Critically high <=1.0 [facility] Comment on above: Performed By: #### C MP, CRP ####[facility] Vcifzbikpo5025 [place] [address]Dr. Devin Suresh LACTATE/LACTIC ACIDon 2022 Lactate [Moles/Vol] 1.6 mmol/L Normal 0.4-2.0 [facility] Comment on above: Performed By: #### L ACT ####[facility] Dlhcolgpox4653 [place] [address]Dr. Devin Suresh PH VENOUS BLOODon 10-21-2022 PCO2 VENOUS 49.5 mmHg Normal 40.0-52.0 [facility] Comment on above: Performed By: #### P HVEN ####[facility] Ifpkvldrri12[address] [place] [address]Dr. Devin Suresh pH VENOUS 7.334 Normal 7.330-7.430 [facility] Comment on above: Performed By: #### P HVEN ####[facility] Guchcplvvw[address] [place], [place] [address]Dr. Devin Suresh POINT OF CARE GLUCOSEon 09-24 Glucose [Mass/Vol] 151 mg/dL Critically high 74-106 [facility] Comment on above: Performed By: #### P OCGLUC ####[facility] Vkyybxaadn[address] [place], [place] [address]Dr. Devin Suresh PROF 14(COMP METB)on 023 Albumin [Mass/Vol] 3.1 g/dL Critically low 3.4-5.0 [facility] Comment on above: Performed By: #### C MP, CRP ####[facility] Rzvhlaziyj49[address] [place] [address]Dr. Devin Suresh Albumin/Globulin [Mass ratio] 0.6 {ratio} Normal [facility] Comment on above: Performed By: #### C MP, CRP ####[facility] Prdfwshtqi0727 [place] [address]Dr. Devin Suresh ALP [Catalytic activity/Vol] 132 U/L Critically high 46-116 [facility] Comment on above: Performed By: #### C MP, CRP ####[facility] Wkqocibyrv3499 [place] [address]Dr. Devin Suresh ALT [Catalytic activity/Vol] 20 U/L Normal 14-59 [facility] Comment on above: Performed By: #### C MP, CRP ####[facility] Sqyaznlezx0391 [place] [phone]. Devin Suresh Anion gap [Moles/Vol] 14.4 mmol/L Normal [facility] Comment on above: Performed By: #### C MP, CRP ####[facility] Fpzuedwmlx813[address] [place], [place] [address]Dr. Devin Suresh AST [Catalytic activity/Vol] 20 U/L Normal 15-37 [facility] Comment on above: Performed By: #### C MP, CRP ####[facility] Hsrerwpzqz30[address] [place], [place] [address]Dr. Devin Suresh Bilirubin [Mass/Vol] 0.3 mg/dL Normal 0.2-1.0 [facility] Comment on above: Performed By: #### C MP, CRP ####[facility] Jsmgkoddkq872[address] [place], [place] [address]Dr. Devin Suresh Calcium [Mass/Vol] 9.2 mg/dL Normal 8.5-10.1 [facility] Comment on above: Performed By: #### C MP, CRP ####[facility] Zyzuxmmqnk26[address] [place], [place] [address]Dr. Devin Suresh Chloride [Moles/Vol] 101 mmol/L Normal 98-107 [facility] Comment on above: Performed By: #### C MP, CRP ####[facility] Bffzcrawlv460[address] [place], [place] [address]Dr. Devin Suresh CO2 [Moles/Vol] 26.6 mmol/L Normal 21.0-32.0 [facility] Comment on above: Performed By: #### C MP, CRP ####[facility] Wfcmwkoeav64230[address] [place], [place] [address]Dr. Devin Suresh Creatinine [Mass/Vol] 1.34 mg/dL Critically high 0.55-1.02 [facility] Comment on above: Performed By: #### C MP, CRP ####[facility] Lgqyikqdpn6[address] [place] [address]Dr. Devin Suresh EGFR-AF [place] 52 mL/min/1.73m2 Critically low >=60 [facility] Comment on above: Performed By: #### C MP, CRP ####[facility] Zxvmpaikqs0363 [place] [address]Dr. Devin Suresh EGFR-NON AF [place] 43 mL/min/1.73m2 Critically low >=60 [facility] Comment on above: Performed By: #### C MP, CRP ####[facility] Xvllengozr9591 [place] [address]Dr. Devin Suresh Globulin (S) [Mass/Vol] 4.9 g/dL Normal [facility] Comment on above: Performed By: #### C MP, CRP ####[facility] Roeneqnfbx806[address] [place], [place] [address]Dr. Devin Suresh Glucose [Mass/Vol] 210 mg/dL Critically high 74-106 [facility] Comment on above: Performed By: #### C MP, CRP ####[facility] Qqpjyognpf2717[address] [place], [place] [address]Dr. Devin Suresh Potassium [Moles/Vol] 4.0 mmol/L Normal 3.5-5.1 [facility] Comment on above: Performed By: #### C MP, CRP ####[facility] Ouvfzxmuqc229[address] [place], [place] [address]Dr. Devin Kerwin Protein [Mass/Vol] 8.0 g/dL Normal 6.4-8.2 [facility] Comment on above: Performed By: #### C MP, CRP ####[facility] Ezqxbpxzme547[address] [place], [place] [address]Dr. Devin Suresh Sodium [Moles/Vol] 138 mmol/L Normal 136-145 [facility] Comment on above: Performed By: #### C MP, CRP ####[facility] Atomrdcvjn9916[address] [place], [place] [address]Dr. Devin Suresh Urea nitrogen [Mass/Vol] 29.0 mg/dL Critically high 7.0-18.0 [facility] Comment on above: Performed By: #### C MP, CRP ####[facility] Tkaigtlmlm30[address] [place] [address]Dr. Devin Suresh Urea nitrogen/Creatinine [Mass ratio] 21.6 mg/mg Normal [facility] Comment on above: Performed By: #### C MP, CRP ####[facility] Vhvktmelmo39[address] [place] [address]Dr. Devin Suresh [facility] SED RATE 88 mm/hr Critically high <=20 [facility] Comment on above: Performed By: #### S EDR ####[facility] Yfjzopbbne[address] [place] [address]Dr. Devin Suresh XR ELBOW RT MIN 3 VIEWSon XR ELBOW RT MIN 3 VIEWS Normal [facility] XR FOOT RT MIN 3 VIEWSon XR FOOT RT MIN 3 VIEWS Normal [facility] BASIC METABOLIC PANELon 09-22 Anion gap [Moles/Vol] 14 mmol/L Normal 10-20 [facility] Comment on above: Performed By: #### C H8, CRP, MG ####[facility] [address] [place] [address], Calcium [Mass/Vol] 9.1 mg/dL Normal 8.4-10.4 [facility] Comment on above: Performed By: #### C H8, CRP, MG ####[facility] [id number] [place], [place], Chloride [Moles/Vol] 104 mmol/L Normal 97-111 [facility] Comment on above: Performed By: #### C H8, CRP, MG ####[facility] [id number] [place], [place], CO2 [Moles/Vol] 27 mmol/L Normal 21-30 [facility] Comment on above: Performed By: #### C H8, CRP, MG ####[facility] [id number] [place], [place], Creatinine [Mass/Vol] 0.90 mg/dL Normal 0.50-1.10 [facility] Comment on above: Performed By: #### C H8, CRP, MG ####[facility] [id number] [place], [place], ESTIMATED GFR (CKD-EPI) 80 mL/min/1.73sqm Normal >=60 [facility] Comment on above: Result Comment: 2020 CKD EPI Equation using Creatinine without Race Comment: Estimated glomerular filtration rate (eGFR) is calculated without a race coefficient. Values should be interpreted in the context of the patient's full clinical presentation. Reference: 1. German C, Negrita M, Jomar DC, et al.. A Unifying Approach for GFR Estimation: Recommendations of the NKF-ASN Task Force on Reassessing the Inclusion of Race in Diagnosing Kidney Disease. [place] Journal of Kidney Diseases 2021;79(2):268-88.e1. 2. N Engl J Med 2020 Vol. 385 Issue 19 Pages 4849-0129 Performed By: #### C H8, CRP, MG ####[facility] [id number] [place], [place], Glucose [Mass/Vol] 82 mg/dL Normal 68-110 [facility] Comment on above: Performed By: #### C H8, CRP, MG ####[facility] [id number] [place], [place], Potassium [Moles/Vol] 3.6 mmol/L Normal 3.3-5.3 [facility] Comment on above: Performed By: #### C H8, CRP, MG ####[facility] [id number] [place], [place], Sodium [Moles/Vol] 141 mmol/L Normal 135-148 [facility] Comment on above: Performed By: #### C H8, CRP, MG ####[facility] [id number] [place], Urea nitrogen [Mass/Vol] 18 mg/dL Normal 8-22 [facility] Comment on above: Performed By: #### C H8, CRP, MG ####[facility] [id number] [place], [place], C-REACTIVE PROTEINon 0516-2 023 CRP 0.8 mg/dL High <0.8 [facility] Comment on above: Performed By: #### C H8, CRP, MG ####[facility] [id number] [place], [place], CBC WITH DIFFERENTIALon 09-22 Basophils (Bld) [#/Vol] 0.11 10*3/uL Normal 0.00-0.20 [facility] Comment on above: Performed By: #### C BCDSAT, ESR ####[facility] MVHVGPZKIC[address] [place] [address], Basophils/100 WBC (Bld) 0.9 % Normal <=1.9 [facility] Comment on above: Performed By: #### C BCDSAT, ESR ####[facility] [id number] [place] [address], Eosinophils (Bld) [#/Vol] 0.23 10*3/uL Normal 0.00-0.70 [facility] Comment on above: Performed By: #### Isabell BCDSAT, ESR ####[facility] [address]ZEULEKAAK[address] [place] [address], Eosinophils/100 WBC (Bld) 1.9 % Normal 0.1-4.0 [facility] Comment on above: Performed By: #### Isabell BCDSAT, ESR ####[facility] MEBJJLODZA[address] [place] [address], Erythrocyte distribution width (RBC) [Ratio] 12.6 % Normal 11.5-14.5 [facility] Comment on above: Performed By: #### Isabell BCDSAT, ESR ####[facility] [id number] [place] [address], Hematocrit (Bld) [Volume fraction] 37.9 % Normal 36.0-46.0 [facility] Comment on above: Performed By: #### Isabell BCDSAT, ESR ####[facility] [id number] [place] [address], Hemoglobin (Bld) [Mass/Vol] 12.6 g/dL Normal 12.0-15.0 [facility] Comment on above: Performed By: #### Isabell STARK, ESR ####[facility] [id number] [place], [place], Lymphocytes (Bld) [#/Vol] 3.20 10*3/uL Normal 1.00-4.80 [facility] Comment on above: Performed By: #### Isabell STARK, ESR ####[facility] PAIZNUFBKN[address] [place] [address], Lymphocytes/100 WBC (Bld) 26.2 % Normal 24.0-44.0 [facility] Comment on above: Performed By: #### Isabell STARK, ESR ####[facility] [id number] [place] [address], MCH (RBC) [Entitic mass] 30.1 pg Normal 26.0-34.0 [facility] Comment on above: Performed By: #### Isabell STARK, ESR ####[facility] [id number] [place] [address], MCHC (RBC) [Mass/Vol] 33.2 g/dL Normal 32.0-35.9 [facility] Comment on above: Performed By: #### Isabell STARK, ESR ####[facility] [id number] [place], [place], MCV (RBC) [Entitic vol] 91 fL Normal 80-100 [facility] Comment on above: Performed By: #### Isabell STARK, ESR ####[facility] [id number] [place], [place], MONOCYTE DISTRIBUTION WIDTH 21 High <=20 [facility] Comment on above: Performed By: #### Isabell STARK, ESR ####S PATHOLOGY [id number] [place], [place], Monocytes (Bld) [#/Vol] 0.62 10*3/uL Normal 0.20-1.00 [facility] Comment on above: Performed By: #### Isabell STARK, ESR ####[facility] PATHOLOGY [id number] [place], Monocytes/100 WBC (Bld) 5.1 % Normal 2.0-11.0 [facility] Comment on above: Performed By: #### Isabell LOOAT, ESR ####[facility] PATHOLOGY [id number] [place], [place], Neutrophils (Bld) [#/Vol] 8.05 10*3/uL High 1.50-8.00 [facility] Comment on above: Performed By: #### C CINDAAT, ESR ####S PATHOLOGY [id number] [place], Neutrophils/100 WBC (Bld) 66.0 % Normal 31.0-76.0 [facility] Comment on above: Performed By: #### Isabell LOOAT, ESR ####[facility] PATHOLOGY [id number] [place], [place], Platelet mean volume (Bld) [Entitic vol] 7.3 fL Low 7.5-11.2 [facility] Comment on above: Performed By: #### Isabell LOOAT, ESR ####[facility] PATH[facility] [id number] [place] [address], Platelets (Bld) [#/Vol] 380 10*3/uL Normal 150-400 [facility] Comment on above: Performed By: #### Isabell LOOAT, ESR ####S PATHOLOGY [id number] [place], [place], RBC (Bld) [#/Vol] 4.18 10*6/uL Normal 4.00-5.20 [facility] Comment on above: Performed By: #### Isabell LOOAT, ESR ####S PATHOLOGY BJIMNFMKZG[address] [place] [address], WBC (Bld) [#/Vol] 12.2 10*3/uL High 4.5-11.5 [facility] Comment on above: Performed By: #### Isabell LOOAT, ESR ####[facility] PATHOLOGY PRNVMJFAHS[address] [place] [address], [id number] CT C-SPINE W/ CONTRASTon CT C-SPINE W/ CONTRAST EXAMINATION: CT C-SPINE W/ CONTRAST 10/07/2022 04:29 AM CLINICAL HISTORY: cauda equina ASSOCIATED DIAGNOSIS: cauda equina ORDERING PROVIDER: NIKKO DING NOTE: COMPARISON: None TECHNIQUE: Thin isotropic axial images were obtained from the skull base to the upper thoracic spine without intravenous contrast. 2D sagittal and coronal reconstructions were obtained from the axial data. Before infusion of intravenous contrast, radiology personnel investigated the possibility of an allergic history and any history of reaction to iodinated contrast material. Contrast Protocol: Omnipaque 350 [>or =100lb] 75 ml [<100 lb] 1 ml per 1 lb. FINDINGS: Alignment: Normal. Vertebrae: No evidence of an acute fracture. No aggressive osseous lesions. Canal and foramina: Effacement of the ventral CSF space spanning C5-C7 without significant flattening of the cord related to disc osteophytic bulging resulting in mild central canal stenosis. No significant neural foraminal narrowing. Soft Tissues: No acute process. Vascular calcifications. Other: Subarachnoid opacification related to myelogram. Right IJ central venous line partially visualized. IMPRESSION: Mild central canal stenosis at C5-C7 related to mild disco osteophytic bulging without neural foraminal narrowing. MACRO: None Normal [facility] Cervical [facility] W contrast [place] 10-07-2022 EXAMINATION: CT C-SP INE W/ CONTRAST 10/07/2022 04:29 AM CLINICAL HISTORY: cauda equina ASSOCIATED DIAGNOSIS: cauda equina ORDERING PROVIDER: NIKKO DING NOTE: COMPARISON: None TECHNIQUE: Thin isotropic axial images were obtained from the skull base to the upper thoracic spine without intravenous contrast. 2D sagittal and coronal reconstructions were obtained from the axial data. Before infusion of intravenous contrast, radiology personnel investigated the possibility of an allergic history and any history of reaction to iodinated contrast material. Contrast Protocol: Omnipaque 350 [>or =100lb] 75 ml [<100 lb] 1 ml per 1 lb. FINDINGS: Alignment: Normal. Vertebrae: No evidence of an acute fracture. No aggressive osseous lesions. Canal and foramina: Effacement of the ventral CSF space spanning C5-C7 without significant flattening of the cord related to disc osteophytic bulging resulting in mild central canal stenosis. No significant neural foraminal narrowing. Soft Tissues: No acute process. Vascular calcifications. Other: Subarachnoid opacification related to myelogram. Right IJ central venous line partially visualized. IMPRESSION: Mild central canal stenosis at C5-C7 related to mild disco osteophytic bulging without neural foraminal narrowing. MACRO: None Kwaku Rawls MD - 10/07/2022 EXAMINATION: CT C-SPINE W/ CONTRAST 10/07/2022 04:29 AM CLINICAL HISTORY: cauda equina ASSOCIATED DIAGNOSIS: cauda equina ORDERING PROVIDER: NIKKO DING NOTE: COMPARISON: None TECHNIQUE: Thin isotropic axial images were obtained from the skull base to the upper thoracic spine without intravenous contrast. 2D sagittal and coronal reconstructions were obtained from the axial data. Before infusion of intravenous contrast, radiology personnel investigated the possibility of an allergic history and any history of reaction to iodinated contrast material. Contrast Protocol: Omnipaque 350 [>or =100lb] 75 ml [<100 lb] 1 ml per 1 lb. FINDINGS: Alignment: Normal. Vertebrae: No evidence of an acute fracture. No aggressive osseous lesions. Canal and foramina: Effacement of the ventral CSF space spanning C5-C7 without significant flattening of the cord related to disc osteophytic bulging resulting in mild central canal stenosis. No significant neural foraminal narrowing. Soft Tissues: No acute process. Vascular calcifications. Other: Subarachnoid opacification related to myelogram. Right IJ central venous line partially visualized. IMPRESSION: Mild central canal stenosis at C5-C7 related to mild disco osteophytic bulging without neural foraminal narrowing. MACRO: None [employer] CT Cervical spine W contrast IVOrdered By: Kwaku Herman on 10-07-2022 [employer] Work Phone: CT T-SPINE/L-SPINE W/ CONTRA STon 10-07-2022 CT T-SPINE/L-SPINE W/ CONTRAST EXAMINATION: CT T-SPINE/L-SPINE W/ CONTRAST 10/07/2022 04:29 AM CLINICAL HISTORY: cauda equina ASSOCIATED DIAGNOSIS: cauda equina ORDERING PROVIDER: NIKKO KENDRICK TECHNKENNETH NOTE: COMPARISON: None TECHNIQUE: Thin axial images were obtained through the thoracic and lumbar spine after intrathecal contrast administration. 2D sagittal and coronal reconstructions were obtained from the axial data. Before infusion of intravenous contrast, radiology personnel investigated the possibility of an allergic history and of any history of reaction to iodinated contrast material. INTRA-PROCEDURE MEDS: iohexol (OMNIPAQUE) 300 MG/ML injection 15 mL Route: Intravenous Push FINDINGS: Vertebrae: No acute fracture or traumatic malalignment. No aggressive osseous lesions. Mild multilevel spondylosis without critical spinal canal stenosis. A minimal diffuse disc bulge is noted at the L4-5 level resulting in mild effacement of the anterior subarachnoid space without significant central canal stenosis. Radiopaque contrast outlines the intrathecal space without evidence of spinal cord compression. No nerve root compression. The conus medullaris is normal in shape and position. Visible sacrum and pelvis: No acute abnormality. Paraspinal soft tissues: ICD partially visualized. Atherosclerotic changes. IMPRESSION: 1. No acute osseous abnormalities in the thoracic or lumbar spine. 2. Status post myelogram without evidence of significant central canal stenosis or nerve impingement. MACRO: None Normal [facility] [employer] [facility] CT Thoracic and lumbar spine W contrast [place] 10-07-2022 EXAMINATION: CT T-SPINE/L-SPINE W/ CONTRAST 10/07/2022 04:29 AM CLINICAL HISTORY: cauda equina ASSOCIATED DIAGNOSIS: cauda equina ORDERING PROVIDER: NIKKO KENDRICK TECHNOLOGISTS NOTE: COMPARISON: None TECHNIQUE: Thin axial images were obtained through the thoracic and lumbar spine after intrathecal contrast administration. 2D sagittal and coronal reconstructions were obtained from the axial data. Before infusion of intravenous contrast, radiology personnel investigated the possibility of an allergic history and of any history of reaction to iodinated contrast material. INTRA-PROCEDURE MEDS: iohexol (OMNIPAQUE) 300 MG/ML injection 15 mL Route: Intravenous Push FINDINGS: Vertebrae: No acute fracture or traumatic malalignment. No aggressive osseous lesions. Mild multilevel spondylosis without critical spinal canal stenosis. A minimal diffuse disc bulge is noted at the L4-5 level resulting in mild effacement of the anterior subarachnoid space without significant central canal stenosis. Radiopaque contrast outlines the intrathecal space without evidence of spinal cord compression. No nerve root compression. The conus medullaris is normal in shape and position. Visible sacrum and pelvis: No acute abnormality. Paraspinal soft tissues: ICD partially visualized. Atherosclerotic changes. IMPRESSION: 1. No acute osseous abnormalities in the thoracic or lumbar spine. 2. Status post myelogram without evidence of significant central canal stenosis or nerve impingement. MACRO: None RADIOLOGY Kwaku Herman MD - 10/07/2022 EXAMINATION: CT T-SPINE/L-SPINE W/ CONTRAST 10/07/2022 04:29 AM CLINICAL HISTORY: cauda equina ASSOCIATED DIAGNOSIS: cauda equina ORDERING PROVIDER: NIKKO KENDRICK TECHNOLOGISTS NOTE: COMPARISON: None TECHNIQUE: Thin axial images were obtained through the thoracic and lumbar spine after intrathecal contrast administration. 2D sagittal and coronal reconstructions were obtained from the axial data. Before infusion of intravenous contrast, radiology personnel investigated the possibility of an allergic history and of any history of reaction to iodinated contrast material. INTRA-PROCEDURE MEDS: iohexol (OMNIPAQUE) 300 MG/ML injection 15 mL Route: Intravenous Push FINDINGS: Vertebrae: No acute fracture or traumatic malalignment. No aggressive osseous lesions. Mild multilevel spondylosis without critical spinal canal stenosis. A minimal diffuse disc bulge is noted at the L4-5 level resulting in mild effacement of the anterior subarachnoid space without significant central canal stenosis. Radiopaque contrast outlines the intrathecal space without evidence of spinal cord compression. No nerve root compression. The conus medullaris is normal in shape and position. Visible sacrum and pelvis: No acute abnormality. Paraspinal soft tissues: ICD partially visualized. Atherosclerotic changes. IMPRESSION: 1. No acute osseous abnormalities in the thoracic or lumbar spine. 2. Status post myelogram without evidence of significant central canal stenosis or nerve impingement. MACRO: None [facility] 10-07-2022 Data Entry Operator Authentication Interface Message Text SPINE TRAUMA H AND P Patient Name: Addie Jean Baptiste Primary Care Physician: No primary care provider on file. CONSULTED BY: ED CONSULTED FOR: r/o cauda equina CHIEF COMPLAINT: BL LE weakness HPI: 47F (PMH T2DM severe diabetic neuropathy, bipolar, morbid obesity, hypertensive HF s/p AICD in 2019) presents to ED for BL LE weakness and urinary incontinence x1 week now minimally ambulatory, consulted for r/o cauda equina syndrome. Notably, patient had CT L spine myelogram in 2016 at [facility] significant for mild L4/5 foraminal stenosis. Antiplatelet/Anticoagulan t: None PAST MEDICAL HISTORY: See above PAST SURGICAL HISTORY: None FAMILY HISTORY: No family history on file. SOCIAL HISTORY: Social History Occupational History Not on file Tobacco Use Smoking status: Not on file Smokeless tobacco: Not on file Substance and Sexual Activity Alcohol use: Not on file Drug use: Not on file Sexual activity: Not on file MEDICATIONS: magnesium sulfate 2,000 mg One Time Dose ALLERGIES: Not on File COMPLETE REVIEW OF SYSTEMS: ROS 05/05 systems negative other than above LABS: CBC/PT/INR WBC RBC Hgb Hct MCV RDW Plt PT aPTT INR 10/06/222209 12.2 4.18 12.6 37.9 91 12.6 380 Basic Metabolic Panel Na K Cl CO2 Gap Glu BUN Cr Ca Mg PO4 10/06/222209 1.4 10/06/222209 141 3.6 104 27 14 82 18 0.90 9.1 PHYSICAL EXAM: Gen: awake, alert, in no acute distress Chest: symmetric chest rise, non-labored breathing Heart: extremities WWP MSK: Palpation: Spinal column minimally tender to palpation, no step-offs, bogginess, or ecchymosis. RIGHT LEFT SHOULDER ABDUCTION 4/5 4/5 ELBOW FLEXION C5 4/5 4/5 WRIST EXTENSION C6 4/5 4/5 ELBOW EXTENSION C7 4/5 4/5 DISTAL PHALANX FLEXION (FDP) C8 4/5 4/5 5TH DIGIT ABDUCTION (ADM) T1 4/5 4/5 HIP FLEXION (ILIOPSOAS) L2 3/5 3/5 QUADRICEPS (KNEE EXTENSION) L3 3/5 3/5 ANKLE DORSIFLEXION (TA) L4 3/5 3/5 GREAT TOE EXTENSION (EHL) L5 3/5 3/5 ANKLE PLANTARFLEXION (GAS) S1 3/5 3/5 Absent perianal sensation Rectal tone intact Reflexes: Bilateral and symmetric 2+/4 UE reflexes (biceps, triceps, BR) Bilateral and symmetric 2+/4 LE reflexes (knee-jerk, Achilles) No clonus Downgoing toes (negative Babinski), bilateral No Valdez's noted, bilateral RADIOLOGY: CT myelogram wo evidence of significant cervical, thoracic, or lumbar stenosis SPINE CLASSIFICATION: 1. Spinal fracture level: None 2. Neurological level of injury: None 3. Fracture morphology: None 4. Facet fracture: No BL: Bilateral injury: No 5. Neurological status: N1: Transient deficit N+: Ongoing compression with neurological deficit: No 6. Clinical modifiers: None 7.Previous spine surgery: No 8. Previous spine trauma: No ASSESSMENT/PLAN: 47F with BL LE weakness, unclear if new onset or effort dependent as there is no corroborating recent neurologic examination. - CT myelogram wo significant cord compression - No acute orthopaedic spine intervention. No structural explanation for patient's current subjective weakness - Recommend medicine admit for placement, neurology consult for additional workup - Follow up with Dr. Yoon on an as needed basis Above plan was discussed with the (Chief) within 30 minutes of consult and discussed with the staff Dr. Car Clay MD Orthopaedic Surgery PGY3 While in-house, patient will be followed by Ortho Team A, please include ALL residents below in any [employer]EL[employer] Chat communications: Ortho Trauma Team A: Courtney Jessica PGY1 ([phone]) Jacob Lo PGY3 ([phone]) After 5pm, weekends, and holidays please page Ortho consult pager, [phone] Normal The [employer] [facility] ED Provider Noteson 10-08-19 Data Entry Operator Authentication Interface Message Text ED RESIDENT CONTINUATION OF CARE NOTE Addie Jean Baptiste was signed out to me at 0700. Briefly, she presented to the ED for b/l LE weakness and urinary incontinence x [address] myelogram without evidence of cauda equina (MRI deferred given patient with pacemaker and cardiology unable to interrogate pacemaker). Ortho spine saw and evaluated patient, recommend OP follow up. Signout note reviewed. ED Course as of 10/07/22 0746 ThuOctober 06, 2022 2131 Heart Rate(!): 102 [AC] 2316 COMPLETE BLOOD COUNT W/DIFF (RAPID RESPONSE LABS)(!): WBC 12.2(!) RBC 4.18 Hemoglobin 12.6 Hematocrit 37.9 MCV 91 MCH 30.1 MCHC 33.2 Platelet 380 RDW-CV% 12.6 MPV 7.3(!) Neutrophils 66.0 Neutrophil # 8.05(!) Lymphocytes 26.2 Lymph Absolute 3.20 Monocytes 5.1 Monocyte Absolute 0.62 Eosinophil 1.9 Eosinophil Absolute 0.23 Basophils 0.9 Basophil # 0.11 MDW 21(!) leukocytosis [AC] 2316 Sed Rate (ESR)(!): 48 elevated [AC] ED Course User Index [AC] Nikko Kendrick DO Medical Decision Making: Addie Jean Baptiste is a 47 year old female PMH DM2 c/b severe diabetic neuropathy, retention, hypothyroidism, bipolar presenting to the ED for lower extremity weakness and incontinence. Patient remained HDS under my care. CT myelogram negative for cauda equina, Ortho saw and evaluated pt with recommendation to follow up as OP given no acute spine intervention and no structural explanation of symptoms, recommend admission for placement. Explained to patient that given weakness of LE, recommendation is to admit for placement and further rehabilitation. Patient refusing admission as she notes she wants to go back home because she has help there from her sister (states sister lives with her) and can take care of her. Patient notes understanding of indication and recommendations though is wanting to be discharged home with ride coming to get her at Noon. Explained that she is to follow up with Ortho spine as OP. Plan: DC home ----- IMPRESSION AND DISPOSITION --- Clinical Impression Diagnosis Comment Weakness of lower extremity, unspecified laterality [R29.898] Urinary incontinence, unspecified type [R32] Saddle anesthesia [R20.0] Type 2 diabetes mellitus with diabetic neuropathy, unspecified whether joint terminal attack controller insulin use (HCC) [E11.40] Disposition: Home The patient has received a medical screening examination and within reasonable clinical confidence an emergency medical condition was identified and has been stabilized. Counseling: Spoke with the patient and discussed today's findings, in addition to providing specific details for the plan of care and expected course. They were given the opportunity to ask questions. Discussed return precautions and importance of follow-up. Advised to follow-up with PCP. Advised to return to the ED for changing or worsening symptoms, new symptoms, complaint specific precautions, and precautions listed on the discharge paperwork. Kylee Brown, DO Rotating Resident, PGY-1 Normal [facility] ERYTHROCYTE SEDIMENTATION RA Estephania 10-07-2022 ESR (Bld) [Velocity] 48 mm/h High <=30 [facility] Comment on above: Performed By: #### C BCDSAT, ESR ####[facility] [id number] [place], [place], MAGNESIUMon 10-07-2022 Magnesium [Mass/Vol] 1.4 mg/dL Low 1.6-2.8 [facility] Comment on above: Performed By: #### C H8, CRP, MG ####[facility] [id number] [place], [place], No Panel Informationon 10-07 Radiology Study observation (narrative) [facility] PROTHROMBIN TIME AND INRon 0 10-07-2022 INR Coag (PPP) [Relative time] 1.12 {INR} High 0.90-1.10 [facility] Comment on above: Performed By: #### P T #### [facility] [address] [place], [place], PT Coag (PPP) [Time] 12.6 s Normal 9.7-12.9 [facility] Comment on above: Performed By: #### P T #### [facility] [address] [place], [place], INR Coag (PPP) [Relative time] 1.12 {INR} High 0.90 - 1.10 [facility] Interpretation and review of laboratory results Abnormal [facility] PT Coag (PPP) [Time] 12.6 [facility] TYPE AND SCREENon 10-07-2022 ABO and Rh group Nom (Bld) Blood group A Rh(D) positive [facility] ABO and Rh group Nom (Bld) No Previous Results [facility] Blood group antibody screen Ql Negative [facility] ABO and Rh group Nom (Bld) Blood group A Rh(D) positive Normal [facility] Comment on above: Performed By: #### T S #### [facility] [address] [place], [place], ABO and Rh group Nom (Bld) No Previous Results Normal [facility] Comment on above: Performed By: #### T S #### [facility] [address] [place], [place], ABSC INT Negative Normal [facility] Comment on above: Performed By: #### T S #### [facility] [address] [place], [place], Basic metabolic 2000 panelon 10-06-2022 Anion gap [Moles/Vol] 14 mmol/L 10 - 20 [facility] Calcium [Mass/Vol] 9.1 mg/dL 8.4 - 10. 4 mg/dL [facility] Chloride [Moles/Vol] 104 mmol/L 97 - 11 1 mmol/L [facility] CO2 [Moles/Vol] 27 mmol/L 21 - 30 mmol/L [facility] Creatinine [Mass/Vol] 0.90 mg/dL 0.50 - 1.10 mg/dL [facility] GFR/1.73 sq M.predicted MDRD (S/P/Bld) [Vol rate/Area] 80 mL/min/{1.73_m2} - PINF [facility] Comment on above: 2020 CKD EPI Equatio n using Creatinine without Race Comment: Estimated glomerular filtration rate (eGFR) is calculated without a race coefficient. Values should be interpreted in the context of the patient's full clinical presentation. Reference: 1. German C, Negrita M, Jomar DC, et al.. A Unifying Approach for GFR Estimation: Recommendations of the NKF-ASN Task Force on Reassessing the Inclusion of Race in Diagnosing Kidney Disease. [place] Journal of Kidney Diseases 202;79(2):268-88.e1. 2. N Engl J Med 2021 Vol. 385 Issue 19 Pages 2642-4486 Glucose [Mass/Vol] 82 mg/dL 68 - 110 mg/dL [facility] Interpretation and review of laboratory results Normal [facility] Potassium [Moles/Vol] 3.6 mmol/L 3.3 - 5.3 mmol/L [facility] Sodium [Moles/Vol] 141 mmol/L 135 - 148 mmol/L [facility] Urea nitrogen [Mass/Vol] 18 mg/dL 8 - 22 mg/dL [facility] C-REACTIVE PROTEINon 10-06-2 023 CRP [Mass/Vol] 0.8 mg/dL High NINF - 0.8 mg/dL [facility] CBC WITH DIFFERENTIALon 09-22 Basophils (Bld) [#/Vol] 0.11 10*3/uL 0.00 - 0.20 K/uL [facility] Basophils/100 WBC (Bld) 0.9 % NINF - 1.9 % [facility] Eosinophils (Bld) [#/Vol] 0.23 10*3/uL 0.00 - 0.70 K/uL [facility] Eosinophils/100 WBC (Bld) 1.9 % 0.1 - 4.0 % [facility] Erythrocyte distribution width (RBC) [Ratio] 12.6 % 11.5 - 14.5 % [facility] Hematocrit (Bld) [Volume fraction] 37.9 % 36.0 - 46.0 % [facility] Hemoglobin (Bld) [Mass/Vol] 12.6 g/dL 12.0 - 15.0 g/dL [facility] Interpretation and review of laboratory results Abnormal [facility] Lymphocytes (Bld) [#/Vol] 3.20 10*3/uL 1.00 - 4.80 K/uL [facility] Lymphocytes/100 WBC (Bld) 26.2 % 24.0 - 44.0 % [facility] MCH (RBC) [Entitic mass] 30.1 pg 26.0 - 34.0 pg [facility] MCHC (RBC) [Mass/Vol] 33.2 g/dL 32.0 - 35.9 g/dL [facility] MCV (RBC) [Entitic vol] 91 fL 80 - 100 fL [facility] Monocyte distribution width Auto (Bld) [Entitic vol] 21 High NINF - 20 [facility] Monocytes (Bld) [#/Vol] 0.62 10*3/uL 0.20 - 1.00 K/uL [facility] Monocytes/100 WBC (Bld) 5.1 % 2.0 - 11.0 % [facility] Neutrophils (Bld) [#/Vol] 8.05 10*3/uL High 1.50 - 8.00 K/uL [facility] Neutrophils/100 WBC (Bld) 66.0 % 31.0 - 76.0 % [facility] Platelet mean volume (Bld) [Entitic vol] 7.3 fL Low 7.5 - 11.2 fL [facility] Platelets (Bld) [#/Vol] 380 10*3/uL 150 - 400 K/uL [facility] RBC (Bld) [#/Vol] 4.18 10*6/uL [facility] WBC (Bld) [#/Vol] 12.2 10*3/uL High 4.5 - 11.5 K/uL [facility] CHEMISTRYOrdered By: SYSTEM SYSTEM on 10-06-2022 Albumin [Mass/Vol] 3.5 g/dL Normal 3.3 - 5.0 gm/dL [facility] Albumin/Globulin [Mass ratio] 0.9 {ratio} Low 1.1 - 2.2 [facility] Remisol ALP [Catalytic activity/Vol] 94 [iU]/d Normal 21 - 98 Int._Unit/L [facility] Remisol ALT No additional P-5'-P [Catalytic activity/Vol] 12 [iU]/d Normal 6 - 46 Int._Unit/L [facility] Remisol Anion gap [Moles/Vol] 15 mmol/L Normal 6 - 16 mEq/L [facility] Remisol AST [Catalytic activity/Vol] 14 [iU]/d Normal 5 - 43 Int._Unit/L [facility]isol Bilirubin [Mass/Vol] 0.5 mg/dL Normal 0.0 - 1 .1 mg/dL [facility] Remisol Calcium [Mass/Vol] 9.0 mg/dL Normal 8.9 - 11. 1 mg/dL [facility] Chloride [Moles/Vol] 102 mmol/L Normal 101 - 1 11 mmol/L [facility] CO2 [Moles/Vol] 24 mmol/L Normal 21 - 31 mmol/L [facility] Remisol Creatinine [Mass/Vol] 1.0 mg/dL Normal 0.5 - 1.3 mg/dL [facility] Remisol GFR/1.73 sq M.predicted among non-blacks MDRD (S/P/Bld) [Vol rate/Area] 71 mL/min/1.73 m2 Normal >=59mL/min/ 1.73 m2 [facility] Chem S Globulin (S) [Mass/Vol] 3.8 g/dL Normal 1.4 - 4.0 gm/dL [facility] Glucose [Mass/Vol] 223 mg/dL High 55 - 199 mg/dL [facility] Potassium [Moles/Vol] 3.7 mmol/L Normal 3.5 - 5.3 mmol/L [facility] Protein [Mass/Vol] 7.3 g/dL Normal 6.0 - 7.8 gm/dL [facility] Sodium [Moles/Vol] 137 mmol/L Normal 135 - 145 mmol/L [facility] Urea nitrogen [Mass/Vol] 20 mg/dL Normal 5 - 21 mg/dL [facility] Remisol Urea nitrogen/Creatinine [Mass ratio] 20 mg/mg Normal 10 - 20 [facility] Remisol CHEMISTRYOrdered By: Lab ROP User on 10-06-2022 Glucose [Mass/Vol] 229 mg/dL High 55 - 99 mg/dL [facility] POC Subsection Comment on above: Result Comment: Peter yeh RN/ POC Device SN [id number] Invalid Interpretation Code [facility] POC Subsection POC User ID [id number] Invalid Interpretation Code [facility] POC Subsection POC Username BROOKLYNN BURCIAGA Invalid Interpretation Code [facility] POC Subsection ED Provider Noteson 10-07-19 Data Entry Operator Authentication Interface Message Text ----- Attestation with edits by Jocelyn Bowen MD at 10/07/2022 5:51 PM ATTENDING NOTE Patient transferred for MRI for concern cauda equina. Signed out at 2300 awaiting spine eval and discussion with EP or [employer] regarding device compatibility. I saw and evaluated the patient. I personally obtained the mckinnon and critical portions of the history and physical exam. I reviewed the resident's documentation and discussed the patient with the resident. I agree with the resident's medical decision making as documented in the resident's note. Jocelyn Bowen MD ----- EMERGENCY DEPARTMENT - VISIT NOTE ----- HISTORY OF PRESENT ILLNESS - Chief Complaint Patient presents with Chart Transfer from [place] for MRI Transmitter Engineer: not needed - patient preferred language is Japanese. The history is provided by the Patient. Addie Jean Baptiste is a 47 year old female PMH DM2 c/b severe diabetic neuropathy, retention, hypothyroidism, bipolar presenting to the ED for lower extremity weakness and incontinence. Patient was transferred from [facility] for concerns of cauda equina syndrome. Patient states she is had worsening weakness of the bilateral lower extremity for the past week, with associated difficulty urinating including urinary incontinence and difficulty passing stool. Patient does have saddle anesthesia. She does have chronic back pain which is worse today. She does state she has had decreased appetite and some weight loss associated with this. At this time she denies any fevers, chills, headache, change in eyesight, chest pain, shortness of breath, cough, wheezing, abdominal pain, nausea, vomiting. REVIEW OF SYSTEMS Review of Systems Constitutional: Negative for chills, fatigue and fever. Eyes: Negative for visual disturbance. Respiratory: Negative for cough and shortness of breath. Cardiovascular: Negative for chest pain and palpitations. Gastrointestinal: Negative for abdominal pain, diarrhea, nausea and vomiting. Genitourinary: Negative for dysuria and hematuria. Musculoskeletal: Positive for gait problem. Negative for arthralgias. Skin: Negative for rash. Neurological: Positive for weakness and numbness. Negative for dizziness, light-headedness and headaches. PHYSICAL EXAM BP 139/65 Pulse (!) 102 Temp 97.6 ???F (36.4 ???C) (Oral) Resp 17 SpO2 99% Physical Exam Vitals and nursing note reviewed. Constitutional: General: She is not in acute distress. Appearance: Normal appearance. She is not ill-appearing, toxic-appearing or diaphoretic. HENT: Head: Normocephalic and atraumatic. Eyes: Extraocular Movements: Extraocular movements intact. Conjunctiva/sclera: Conjunctivae normal. Cardiovascular: Rate and Rhythm: Regular rhythm. Tachycardia present. Pulses: Normal pulses. Radial pulses are 2+ on the right side and 2+ on the left side. Dorsalis pedis pulses are 2+ on the right side and 2+ on the left side. Heart sounds: No murmur heard. No friction rub. No gallop. Pulmonary: Effort: Pulmonary effort is normal. Breath sounds: Normal breath sounds. No wheezing, rhonchi or rales. Abdominal: General: Abdomen is flat. Palpations: Abdomen is soft. Tenderness: There is no abdominal tenderness. There is no right CVA tenderness, left CVA tenderness, guarding or rebound. Musculoskeletal: General: Normal range of motion. Cervical back: Normal range of motion. No rigidity. Right lower leg: No edema. Left lower leg: No edema. Skin: General: Skin is warm and dry. Findings: No rash. Neurological: Mental Status: She is alert and oriented to person, place, and time. Sensory: Sensory deficit present. Motor: Weakness present. Comments: Decreased sensation bilateral lower extremity, no saddle sensation. Lower extremity strength 3/5 bilaterally. No rectal tone MEDICAL DECISION MAKING and ED COURSE Nursing triage and assessment notes reviewed and incorporated. Management Decisions: MRIs spine considered but not performed due to pacemaker placed and unable to be interrogated prior to CT myelogram Discussion with External Provider: Refrigeration System Installer from spine service recommends MRI or CT myelogram. Negative CT myelogram - recommend to follow up outpatient Discussion with External Provider: Refrigeration System Installer from IR service recommends CT myelogram as cardiology cannot interrogate pacemaker due to another emergent procedure. Secondary Considerations / Diagnoses Addressed During this Visit: DM assessed and could be contributing to patient's weakness from neuropathy. Evaluated (more content not included)... Normal [employer] ERYTHROCYTE SEDIMENTATION RA Estephania 10-06-2022 ESR (Bld) [Velocity] 48 mm/h High NINF [facility] Interpretation and review of laboratory results [facility] HEMATOLOGYOrdered By: SYSTEM SYSTEM on 10-06-2022 Basophils/100 WBC (Bld) 0.5 % Normal 0.0 - 2.0 % [facility]eAutoSS Basophils/Leukocytes Auto (Bld) [Pure # fraction] 0.1 E9/L Normal 0.0 - 0.2 E9/L [facility] Eosinophils/100 WBC (Bld) 1.1 % Normal 0.0 - 8.0 % [facility] Eosinophils/Leukocyte s Auto (Bld) [Pure # fraction] 0.1 E9/L Normal 0.0 - 0.5 E9/L [facility] Lymphocytes/100 WBC (Bld) 16.5 % Normal 14.0 - 50.0 % [facility] Lymphocytes/Leukocyte s Auto (Bld) [Pure # fraction] 1.9 E9/L Normal 1.0 - 4.0 E9/L [facility] Monocytes/100 WBC (Bld) 4.7 % Normal 4.0 - 14.0 % [facility] Monocytes/Leukocytes Auto (Bld) [Pure # fraction] 0.6 E9/L Normal 0.2 - 1.0 E9/L [facility] Neutrophils/100 WBC (Bld) 77.2 % High 36.0 - 75.0 % [facility] Neutrophils/Leukocyte s Auto (Bld) [Pure # fraction] 9.1 E9/L High 2.0 - 7.5 E9/L [facility] HEMATOLOGYOrdered By: Yolie Cuellar on 10-06-2022 Erythrocyte distribution width (RBC) [Ratio] 12.6 % Normal 10.9 - 14.2 % [facility] Hematocrit (Bld) [Volume fraction] 37.9 % Normal 34.0 - 46.0 % [facility] Hemoglobin (Bld) [Mass/Vol] 12.7 g/dL Normal 12.0 - 16.0 gm/dL [facility] MCH (RBC) [Entitic mass] 30.3 pg Normal 27.0 - 34.0 pg [facility] MCHC (RBC) [Mass/Vol] 33.5 g/dL Normal 31.4 - 36.0 gm/dL [facility] MCV (RBC) [Entitic vol] 90.5 fL Normal 80.0 - 100.0 fL [facility] Platelet mean volume (Bld) [Entitic vol] 6.8 fL Normal 6.4 - 10.8 fL [facility] Platelets (Bld) [#/Vol] 332.0 E9/L Normal 150.0 - 500.0 E9/L [facility] RBC (Bld) [#/Vol] 4.2 E12/L Low 4.3 - 5.9 E12/L [facility] WBC corrected for nucl RBC Auto (Bld) [#/Vol] 11.8 E9/L High 4.0 - 11.0 E9/L [facility] MAGNESIUMon 10-06-2022 Magnesium [Mass/Vol] 1.4 mg/dL Low 1.6 - 2 .8 mg/dL [facility] No Panel Informationon 10-06 Interpretation and review of laboratory results Abnormal [facility] XR KUB 1 VIEWon 09-18-2022 XR KUB 1 VIEW Normal [facility] CHEMISTRYOrdered By: Lab ROP User on 09-15-2022 Glucose [Mass/Vol] 166 mg/dL High 55 - 99 mg/dL [facility] POC Subsection Comment on above: Result Comment: Peter yeh RN/ POC Device SN [id number] Invalid Interpretation Code [facility] POC Subsection POC User ID [id number] Invalid Interpretation Code [facility] POC Subsection POC Username Michi Huynh Invalid Interpretation Code [facility] POC Subsection Glucose [Mass/Vol] 172 mg/dL High 55 - 99 mg/dL [facility] POC Subsection Comment on above: Result Comment: Peter yeh RN/ POC Device SN [id number] Invalid Interpretation Code [facility] POC Subsection POC User ID [id number] Invalid Interpretation Code [facility] POC Subsection POC Username Michi Huynh Invalid Interpretation Code [facility] POC Subsection CHEMISTRYOrdered By: SYSTEM SYSTEM on 09-15-2022 Anion gap [Moles/Vol] 10 mmol/L Normal 6 - 16 mEq/L [facility] Remisol Chloride [Moles/Vol] 105 mmol/L Normal 101 - 1 11 mmol/L [facility] Remisol CO2 [Moles/Vol] 27 mmol/L Normal 21 - 31 mmol/L [facility] Remisol Potassium [Moles/Vol] 4.8 mmol/L Normal 3.5 - 5.3 mmol/L [facility] Remisol Sodium [Moles/Vol] 137 mmol/L Normal 135 - 145 mmol/L [facility] Remisol CHEMISTRYOrdered By: Lab ROP User on 09-14-2022 Glucose [Mass/Vol] 219 mg/dL High 55 - 99 mg/dL [facility] POC Subsection Comment on above: Result Comment: Prema piper Meter POC Device SN [id number] Invalid Interpretation Code [facility] POC Subsection POC User ID [id number] Invalid Interpretation Code [facility] POC Subsection POC Username TONIA BARBOSA Invalid Interpretation Code [facility] POC Subsection CHEMISTRYOrdered By: Elizabeth gorman on 09-14-2022 HbA1c (Bld) [Mass fraction] 9.4 % High <=5.9% [facility] ChemAutoSS CHEMISTRYOrdered By: SYSTEM SYSTEM on 09-14-2022 Anion gap [Moles/Vol] 8 mmol/L Normal 6 - 16 mEq/L [facility] Remisol Calcium [Mass/Vol] 8.0 mg/dL Low 8.9 - 11. 1 mg/dL [facility] Remisol Chloride [Moles/Vol] 108 mmol/L Normal 101 - 1 11 mmol/L [facility] Remisol CO2 [Moles/Vol] 26 mmol/L Normal 21 - 31 mmol/L [facility] Remisol Creatinine [Mass/Vol] 1.1 mg/dL Normal 0.5 - 1.3 mg/dL [facility] Remisol GFR/1.73 sq M.predicted among blacks MDRD (S/P/Bld) [Vol rate/Area] mL/min/1.73 m2 Normal >=59mL/min/ 1.73 m2 [facility] Chem S GFR/1.73 sq M.predicted among non-blacks MDRD (S/P/Bld) [Vol rate/Area] 54 mL/min/1.73 m2 Low >=59mL/min/ 1.73 m2 [facility] Chem S Glucose [Mass/Vol] 152 mg/dL Normal 55 - 199 mg/dL [facility] Remisol Potassium [Moles/Vol] 4.2 mmol/L Normal 3.5 - 5.3 mmol/L [facility] Remisol Sodium [Moles/Vol] 138 mmol/L Normal 135 - 145 mmol/L [facility] Remisol Urea nitrogen [Mass/Vol] 27 mg/dL High 5 - 21 mg/dL [facility] Remisol Urea nitrogen/Creatinine [Mass ratio] 24 mg/mg High 10 - 20 [facility] Remisol HEMATOLOGYOrdered By: Guesty SYSTEM on 09-14-2022 Basophils/100 WBC (Bld) 0.8 % Normal 0.0 - 2.0 % [facility]eAutoSS Basophils/Leukocytes Auto (Bld) [Pure # fraction] 0.1 E9/L Normal 0.0 - 0.2 E9/L [facility] Eosinophils/100 WBC (Bld) 2.3 % Normal 0.0 - 8.0 % [facility] Eosinophils/Leukocyte s Auto (Bld) [Pure # fraction] 0.2 E9/L Normal 0.0 - 0.5 E9/L [facility] Lymphocytes/100 WBC (Bld) 29.8 % Normal 14.0 - 50.0 % [facility] Lymphocytes/Leukocyte s Auto (Bld) [Pure # fraction] 2.4 E9/L Normal 1.0 - 4.0 E9/L [facility] Monocytes/100 WBC (Bld) 6.7 % Normal 4.0 - 14.0 % [facility]eAuto[facility] Monocytes/Leukocytes Auto (Bld) [Pure # fraction] 0.5 E9/L Normal 0.2 - 1.0 E9/L [facility] Neutrophils/100 WBC (Bld) 60.4 % Normal 36.0 - 75.0 % [facility]eAuto[facility] Neutrophils/Leukocyte s Auto (Bld) [Pure # fraction] 4.8 E9/L Normal 2.0 - 7.5 E9/L [facility] HEMATOLOGYOrdered By: Mansi Cortez on 09-14-2022 Erythrocyte distribution width (RBC) [Ratio] 13.3 % Normal 10.9 - 14.2 % [facility] Hematocrit (Bld) [Volume fraction] 32.5 % Low 34.0 - 46.0 % [facility] Hemoglobin (Bld) [Mass/Vol] 10.9 g/dL Low 12.0 - 16.0 gm/dL [facility] MCH (RBC) [Entitic mass] 31.0 pg Normal 27.0 - 34.0 pg [facility] MCHC (RBC) [Mass/Vol] 33.6 g/dL Normal 31.4 - 36.0 gm/dL [facility] MCV (RBC) [Entitic vol] 92.3 fL Normal 80.0 - 100.0 fL [facility] Platelet mean volume (Bld) [Entitic vol] 7.0 fL Normal 6.4 - 10.8 fL [facility] Platelets (Bld) [#/Vol] 325.0 E9/L Normal 150.0 - 500.0 E9/L [facility] RBC (Bld) [#/Vol] 3.5 E12/L Low 4.3 - 5.9 E12/L [facility] WBC corrected for nucl RBC Auto (Bld) [#/Vol] 8.0 E9/L Normal 4.0 - 11.0 E9/L [facility] CHEMISTRYOrdered By: SYSTEM SYSTEM on 09-13-2022 Anion gap [Moles/Vol] 11 mmol/L Normal 6 - 16 mEq/L [facility] Remisol Calcium [Mass/Vol] 8.3 mg/dL Low 8.9 - 11. 1 mg/dL [facility] Remisol Chloride [Moles/Vol] 105 mmol/L Normal 101 - 1 11 mmol/L [facility] Remisol CK [Catalytic activity/Vol] 43 [iU]/d Normal 14 - 261 Int._Unit/L [facility] Remisol CO2 [Moles/Vol] 25 mmol/L Normal 21 - 31 mmol/L [facility] Remisol Creatinine [Mass/Vol] 1.3 mg/dL Normal 0.5 - 1.3 mg/dL [facility] Remisol GFR/1.73 sq M.predicted among blacks MDRD (S/P/Bld) [Vol rate/Area] 54 mL/min/1.73 m2 Low >=59mL/min/ 1.73 m2 [facility] Chem S GFR/1.73 sq M.predicted among non-blacks MDRD (S/P/Bld) [Vol rate/Area] 44 mL/min/1.73 m2 Low >=59mL/min/ 1.73 m2 [facility] Chem S Glucose [Mass/Vol] 98 mg/dL Normal 55 - 199 mg/dL [facility] Remisol Potassium [Moles/Vol] 4.3 mmol/L Normal 3.5 - 5.3 mmol/L [facility] Remisol Sodium [Moles/Vol] 137 mmol/L Normal 135 - 145 mmol/L [facility] Remisol Urea nitrogen [Mass/Vol] 26 mg/dL High 5 - 21 mg/dL [facility] Remisol Urea nitrogen/Creatinine [Mass ratio] 20 mg/mg Normal 10 - 20 [facility] Lactate [Mass/Vol] 1.0 mmol/L Normal 0.5 - 2.2 mmol/L [facility] Remisol HEMATOLOGYOrdered By: SYSTEM SYSTEM on 09-13-2022 Basophils/100 WBC (Bld) 0.4 % Normal 0.0 - 2.0 % [facility] Basophils/Leukocytes Auto (Bld) [Pure # fraction] 0.0 E9/L Normal 0.0 - 0.2 E9/L [facility] Eosinophils/100 WBC (Bld) 1.1 % Normal 0.0 - 8.0 % [facility] Eosinophils/Leukocyte s Auto (Bld) [Pure # fraction] 0.1 E9/L Normal 0.0 - 0.5 E9/L [facility] Lymphocytes/100 WBC (Bld) 17.6 % Normal 14.0 - 50.0 % [facility] Lymphocytes/Leukocyte s Auto (Bld) [Pure # fraction] 1.6 E9/L Normal 1.0 - 4.0 E9/L [facility] Monocytes/100 WBC (Bld) 6.2 % Normal 4.0 - 14.0 % [facility] Monocytes/Leukocytes Auto (Bld) [Pure # fraction] 0.6 E9/L Normal 0.2 - 1.0 E9/L [facility] Neutrophils/100 WBC (Bld) 74.7 % Normal 36.0 - 75.0 % [facility]eAuto[facility] Neutrophils/Leukocyte s Auto (Bld) [Pure # fraction] 6.9 E9/L Normal 2.0 - 7.5 E9/L [facility] HEMATOLOGYOrdered By: Mansi Cortez on 09-13-2022 Erythrocyte distribution width (RBC) [Ratio] 13.5 % Normal 10.9 - 14.2 % [facility] Hematocrit (Bld) [Volume fraction] 32.0 % Low 34.0 - 46.0 % [facility] Hemoglobin (Bld) [Mass/Vol] 10.8 g/dL Low 12.0 - 16.0 gm/dL [facility] MCH (RBC) [Entitic mass] 30.7 pg Normal 27.0 - 34.0 pg [facility] MCHC (RBC) [Mass/Vol] 33.7 g/dL Normal 31.4 - 36.0 gm/dL [facility] MCV (RBC) [Entitic vol] 91.1 fL Normal 80.0 - 100.0 fL [facility] Platelet mean volume (Bld) [Entitic vol] 7.0 fL Normal 6.4 - 10.8 fL [facility]eAuto[facility] Platelets (Bld) [#/Vol] 335.0 E9/L Normal 150.0 - 500.0 E9/L [facility] RBC (Bld) [#/Vol] 3.5 E12/L Low 4.3 - 5.9 E12/L [facility]eAuto[facility] WBC corrected for nucl RBC Auto (Bld) [#/Vol] 9.3 E9/L Normal 4.0 - 11.0 E9/L [facility] CHEMISTRYOrdered By: SYSTEM SYSTEM on 09-12-2022 Albumin [Mass/Vol] 3.5 g/dL Normal 3.3 - 5.0 gm/dL [facility] Remisol Albumin/Globulin [Mass ratio] 1.0 {ratio} Low 1.1 - 2.2 [facility] Remisol ALP [Catalytic activity/Vol] 98 [iU]/d Normal 21 - 98 Int._Unit/L [facility] Remisol ALT No additional P-5'-P [Catalytic activity/Vol] 12 [iU]/d Normal 6 - 46 Int._Unit/L [facility] Remisol AST [Catalytic activity/Vol] 12 [iU]/d Normal 5 - 43 Int._Unit/L [facility] Remisol Bilirubin [Mass/Vol] 0.7 mg/dL Normal 0.0 - 1 .1 mg/dL [facility] Remisol Calcium [Mass/Vol] 9.0 mg/dL Normal 8.9 - 11. 1 mg/dL [facility] Remisol Creatinine [Mass/Vol] 0.9 mg/dL Normal 0.5 - 1.3 mg/dL [facility] Remisol GFR/1.73 sq M.predicted among blacks MDRD (S/P/Bld) [Vol rate/Area] mL/min/1.73 m2 Normal >=59mL/min/ 1.73 m2 [facility] Chem S GFR/1.73 sq M.predicted among non-blacks MDRD (S/P/Bld) [Vol rate/Area] mL/min/1.73 m2 Normal >=59mL/min/ 1.73 m2 [facility] Chem S Globulin (S) [Mass/Vol] 3.6 g/dL Normal 1.4 - 4.0 gm/dL [facility] Remisol Glucose [Mass/Vol] 405 mg/dL High 55 - 199 mg/dL [facility] Remisol Lactate [Mass/Vol] 1.2 mmol/L Normal 0.5 - 2.2 mmol/L [facility] Remisol Protein [Mass/Vol] 7.1 g/dL Normal 6.0 - 7.8 gm/dL [facility] Remisol Troponin I.cardiac [Mass/Vol] 5.20 pg/mL Low 10.10 - 27.10 pg/mL [facility] Remisol Urea nitrogen [Mass/Vol] 22 mg/dL High 5 - 21 mg/dL [facility] Remisol Urea nitrogen/Creatinine [Mass ratio] 24 mg/mg High 10 - 20 [facility] Remisol COAGULATIONOrdered By: Glynn Bryant on 09-12-2022 aPTT Coag (PPP) [Time] 31.1 s Normal 25.1 - 36.5 second(s) [facility] Auto Coag INR Coag (PPP) [Relative time] 1.0 {INR} Invalid Interpretation Code [facility] Auto Coag PT Coag (PPP) [Time] 11.7 s Normal 9.4 - 1 2.5 second(s) [facility] Auto Coag Glucose Glucometer (BldC) [M ass/Vol]Ordered By: Shameka Romero on 09-12-2022 Glucose [Mass/Vol] 459 mg/dL [facility] Comment on above: Random Glucose Refer ence Range is dependent on time and content of last meal. Glucose of more than 200 mg/dL in a nonstressed, ambulatory subject supports the diagnosis of Diabetes Mellitus. Glucose Poct Glucometerson 0 09-12-2022 Commemt1 Glu2: Cleaned Meter Normal [facility] Comment on above: Performed By: #### C UBLD #### [facility] [address] Commemt2 WILL NOTIFY DR/JAEL [facility] Comment on above: Result Comment: PERF ORMED BY: [place] [address] PATHOLOGIST MEDICAL BILLING REPRESENTATIVE JACIEL BEASLEY M.D. Performed By: #### C UBLD #### [facility] [address] Glucose [Mass/Vol] 459 mg/dL Off scale high [facility] Comment on above: Result Comment: [place] om Glucose Reference Range is dependent on time and content of last meal. Glucose of more than 200 mg/dL in a nonstressed, ambulatory subject supports the diagnosis of Diabetes Mellitus. Performed By: #### C UBLD #### [facility] [address] [place] [address] HEMATOLOGYOrdered By: SYSTEM SYSTEM on 09-12-2022 Basophils/100 WBC (Bld) 1.0 % Normal 0.0 - 2.0 % [facility]eAutoSS Basophils/Leukocytes Auto (Bld) [Pure # fraction] 0.1 E9/L Normal 0.0 - 0.2 E9/L [facility] Eosinophils/100 WBC (Bld) 1.5 % Normal 0.0 - 8.0 % [facility]eAuto[facility] Eosinophils/Leukocyte s Auto (Bld) [Pure # fraction] 0.1 E9/L Normal 0.0 - 0.5 E9/L [facility]eAuto[facility] Lymphocytes/100 WBC (Bld) 21.4 % Normal 14.0 - 50.0 % [facility]eAuto[facility] Lymphocytes/Leukocyte s Auto (Bld) [Pure # fraction] 2.1 E9/L Normal 1.0 - 4.0 E9/L [facility]eAuto[facility] Monocytes/100 WBC (Bld) 4.8 % Normal 4.0 - 14.0 % [facility]eAutoSS Monocytes/Leukocytes Auto (Bld) [Pure # fraction] 0.5 E9/L Normal 0.2 - 1.0 E9/L [facility] Neutrophils/100 WBC (Bld) 71.3 % Normal 36.0 - 75.0 % [facility]eAuto[facility] Neutrophils/Leukocyte s Auto (Bld) [Pure # fraction] 7.1 E9/L Normal 2.0 - 7.5 E9/L [facility] HEMATOLOGYOrdered By: Mansi Cortez on 09-12-2022 Erythrocyte distribution width (RBC) [Ratio] 13.5 % Normal 10.9 - 14.2 % [facility] Hematocrit (Bld) [Volume fraction] 35.4 % Normal 34.0 - 46.0 % [facility] Hemoglobin (Bld) [Mass/Vol] 11.7 g/dL Low 12.0 - 16.0 gm/dL [facility] MCH (RBC) [Entitic mass] 30.5 pg Normal 27.0 - 34.0 pg [facility] MCHC (RBC) [Mass/Vol] 33.0 g/dL Normal 31.4 - 36.0 gm/dL [facility] MCV (RBC) [Entitic vol] 92.4 fL Normal 80.0 - 100.0 fL [facility] Platelet mean volume (Bld) [Entitic vol] 6.9 fL Normal 6.4 - 10.8 fL [facility] Platelets (Bld) [#/Vol] 317.0 E9/L Normal 150.0 - 500.0 E9/L [facility] RBC (Bld) [#/Vol] 3.8 E12/L Low 4.3 - 5.9 E12/L [facility] WBC corrected for nucl RBC Auto (Bld) [#/Vol] 9.9 E9/L Normal 4.0 - 11.0 E9/L [facility] No Panel InformationOrdered By: [facility] on 09-12-2022 Blood Culture Charcoal No growth at 3 days. Final to follow at 7 days. [facility] Blood Culture Charcoal No growth at 3 days. Final to follow at 7 days. [facility] No Panel InformationOrdered By: Shameka Romero on 09-12-2022 Bedside Glucose #[address]/rn [facility] Bedside Glucose Comment Glu2: cleaned meter [facility] CHEMISTRYOrdered By: SYSTEM SYSTEM on 08-29-2022 Albumin [Mass/Vol] 3.9 g/dL Normal 3.3 - 5.0 gm/dL [facility] Remisol Albumin/Globulin [Mass ratio] 1.0 {ratio} Low 1.1 - 2.2 [facility] Remisol ALP [Catalytic activity/Vol] 101 [iU]/d High 21 - 98 Int._Unit/L [facility] Remisol ALT No additional P-5'-P [Catalytic activity/Vol] 12 [iU]/d Normal 6 - 46 Int._Unit/L [facility] Remisol Anion gap [Moles/Vol] 16 mmol/L Normal 6 - 16 mEq/L [facility] Remisol AST [Catalytic activity/Vol] 15 [iU]/d Normal 5 - 43 Int._Unit/L [facility] Remisol Bilirubin [Mass/Vol] 0.7 mg/dL Normal 0.0 - 1 .1 mg/dL [facility] Remisol Calcium [Mass/Vol] 9.5 mg/dL Normal 8.9 - 11. 1 mg/dL [facility] Remisol Chloride [Moles/Vol] 102 mmol/L Normal 101 - 1 11 mmol/L [facility] Remisol CO2 [Moles/Vol] 22 mmol/L Normal 21 - 31 mmol/L [facility] Remisol Creatinine [Mass/Vol] 1.0 mg/dL Normal 0.5 - 1.3 mg/dL [facility] Remisol GFR/1.73 sq M.predicted among blacks MDRD (S/P/Bld) [Vol rate/Area] mL/min/1.73 m2 Normal >=59mL/min/ 1.73 m2 [facility] Chem S GFR/1.73 sq M.predicted among non-blacks MDRD (S/P/Bld) [Vol rate/Area] 60 mL/min/1.73 m2 Normal >=59mL/min/ 1.73 m2 [facility] Chem S Globulin (S) [Mass/Vol] 3.9 g/dL Normal 1.4 - 4.0 gm/dL [facility] Remisol Glucose [Mass/Vol] 178 mg/dL Normal 55 - 199 mg/dL [facility] Remisol Potassium [Moles/Vol] 3.7 mmol/L Normal 3.5 - 5.3 mmol/L [facility] Remisol Protein [Mass/Vol] 7.8 g/dL Normal 6.0 - 7.8 gm/dL [facility] Remisol Sodium [Moles/Vol] 136 mmol/L Normal 135 - 145 mmol/L [facility] Remisol Urea nitrogen [Mass/Vol] 17 mg/dL Normal 5 - 21 mg/dL [facility] Remisol Urea nitrogen/Creatinine [Mass ratio] 17 mg/mg Normal 10 - 20 [facility] Remisol HEMATOLOGYOrdered By: SYSTEM SYSTEM on 08-29-2022 Basophils/100 WBC (Bld) 1.0 % Normal 0.0 - 2.0 % [facility]eAutoSS Basophils/Leukocytes Auto (Bld) [Pure # fraction] 0.1 E9/L Normal 0.0 - 0.2 E9/L [facility] Eosinophils/100 WBC (Bld) 1.2 % Normal 0.0 - 8.0 % [facility]eAuto[facility] Eosinophils/Leukocyte s Auto (Bld) [Pure # fraction] 0.1 E9/L Normal 0.0 - 0.5 E9/L [facility] Lymphocytes/100 WBC (Bld) 20.1 % Normal 14.0 - 50.0 % [facility]eAuto[facility] Lymphocytes/Leukocyte s Auto (Bld) [Pure # fraction] 2.1 E9/L Normal 1.0 - 4.0 E9/L [facility]eAuto[facility] Monocytes/100 WBC (Bld) 4.6 % Normal 4.0 - 14.0 % [facility]eAuto[facility] Monocytes/Leukocytes Auto (Bld) [Pure # fraction] 0.5 E9/L Normal 0.2 - 1.0 E9/L [facility] Neutrophils/100 WBC (Bld) 73.1 % Normal 36.0 - 75.0 % [facility]eAuto[facility] Neutrophils/Leukocyte s Auto (Bld) [Pure # fraction] 7.7 E9/L High 2.0 - 7.5 E9/L [facility] HemeAutoSS HEMATOLOGYOrdered By: Mansi Cortez on 08-29-2022 Erythrocyte distribution width (RBC) [Ratio] 14.1 % Normal 10.9 - 14.2 % [facility] HemeAutoSS Hematocrit (Bld) [Volume fraction] 37.6 % Normal 34.0 - 46.0 % [facility]eAutoSS Hemoglobin (Bld) [Mass/Vol] 12.4 g/dL Normal 12.0 - 16.0 gm/dL [facility] HemeAutoSS MCH (RBC) [Entitic mass] 30.4 pg Normal 27.0 - 34.0 pg [facility]eAutoSS MCHC (RBC) [Mass/Vol] 33.0 g/dL Normal 31.4 - 36.0 gm/dL [facility] HemeAutoSS MCV (RBC) [Entitic vol] 92.1 fL Normal 80.0 - 100.0 fL [facility] HemeAutoSS Platelet mean volume (Bld) [Entitic vol] 7.0 fL Normal 6.4 - 10.8 fL [facility] HemeAutoSS Platelets (Bld) [#/Vol] 446.0 E9/L Normal 150.0 - 500.0 E9/L [facility]eAutoSS RBC (Bld) [#/Vol] 4.1 E12/L Low 4.3 - 5.9 E12/L [facility] HemeAutoSS WBC corrected for nucl RBC Auto (Bld) [#/Vol] 10.5 E9/L Normal 4.0 - 11.0 E9/L [facility]eAuto[facility] Basic Metabolic Panelon 07-25 Anion gap [Moles/Vol] 10.1 mmol/L Normal 6.0-15.0 [facility] Comment on above: Performed By: #### C UBLD #### [facility] [address] [place] [address] [place] Calcium [Mass/Vol] 8.1 mg/dL Low 8.6-10.3 [facility] Comment on above: Performed By: #### C UBLD #### [facility] [address] [place] [address] [place] Chloride [Moles/Vol] 111 mmol/L High 98-107 [facility] Comment on above: Performed By: #### C UBLD #### [facility] [address] [place] [address] [place] CO2 [Moles/Vol] 25.9 mmol/L Normal 21.0-31.0 [facility] Comment on above: Performed By: #### C UBLD #### [facility] [address] [place] [address] [place] Creatinine [Mass/Vol] 1.22 mg/dL High 0.60-1.20 [facility] Comment on above: Performed By: #### C UBLD #### [facility] [address] [place] [address] [place] Creatinine Clr Calc Pharmacy 70.62 [facility] Comment on above: Performed By: #### C UBLD #### [facility] [address] [place] [address] [place] GFR/1.73 sq M.predicted MDRD (S/P/Bld) [Vol rate/Area] 55.771 mL/min/{1.73_m2} [facility] Comment on above: Performed By: #### C UBLD #### [place] [address] [place] Glucose [Mass/Vol] 141 mg/dL High 70-100 [facility] Comment on above: Result Comment: [place] Glucose Reference Range is dependent on time and content of last meal. Glucose of more than 200 mg/dL in a nonstressed, ambulatory subject supports the diagnosis of Diabetes Mellitus. ADA recommended reference range Performed By: #### C UBLD #### [facility] [address] [place] [address] [place] Potassium [Moles/Vol] 4.0 mmol/L Normal 3.5-5.1 [facility] Comment on above: Performed By: #### C UBLD #### [facility] [address] [place] [address] [place] Sodium [Moles/Vol] 143 mmol/L Normal 136-145 [facility] Comment on above: Performed By: #### C UBLD #### [facility] [address] Urea nitrogen [Mass/Vol] 20 mg/dL Normal 7-25 [facility] Comment on above: Performed By: #### C UBLD #### [facility] [address] Calcium [Mass/volume] in Ser um or PlasmaOrdered By: Jeana Martini on 08-22-2022 Calcium [Mass/Vol] 8.1 mg/dL 8.6-10.3 [facility] [place] dioxide, total [Moles /volume] in Serum or PlasmaOrdered By: Jeana Martini on 08-22-2022 CO2 [Moles/Vol] 25.9 mmol/L 21.0-31.0 [facility] Chloride [Moles/volume] in S hellen or PlasmaOrdered By: Jeana Martini on 08-22-2022 Chloride [Moles/Vol] 111 mmol/L 98-107 [facility] Creatinine [Mass/volume] in Serum or PlasmaOrdered By: Jeana Martini on 08-22-2022 Creatinine [Mass/Vol] 1.22 mg/dL 0.60-1.20 [facility] Glucose Glucometer (BldC) [M ass/Vol]Ordered By: Jeana Martini on 08-22-2022 Glucose [Mass/Vol] 207 mg/dL [facility] Comment on above: Random Glucose Refer ence Range is dependent on time and content of last meal. Glucose of more than 200 mg/dL in a nonstressed, ambulatory subject supports the diagnosis of Diabetes Mellitus. Glucose Poct Glucometerson 0 08-22-2022 Glucose [Mass/Vol] 207 mg/dL Normal [facility] Comment on above: Result Comment: [place] Glucose Reference Range is dependent on time and content of last meal. Glucose of more than 200 mg/dL in a nonstressed, ambulatory subject supports the diagnosis of Diabetes Mellitus. PERFORMED BY: [facility] [address] [place] [address] PATHOLOGIST MEDICAL BILLING REPRESENTATIVE JACIEL BEASLEY M.D. Performed By: #### C UBLD #### [facility] [address] [place] [address] [place] Commemt1 Glu2: Cleaned Meter Normal [facility] Comment on above: Result Comment: PERF ORMED BY: [facility] [address] [facility] [place] [address] PATHOLOGIST MEDICAL BILLING REPRESENTATIVE JACIEL BEASLEY M.D. Performed By: #### C UBLD #### [facility] [address] [place] [address] [place] Glucose [Mass/Vol] 140 mg/dL Normal [facility] Comment on above: Result Comment: [place] om Glucose Reference Range is dependent on time and content of last meal. Glucose of more than 200 mg/dL in a nonstressed, ambulatory subject supports the diagnosis of Diabetes Mellitus. Performed By: #### C UBLD #### [facility] [address] [place] [address] [place] Glucose [Mass/volume] in Ser um or PlasmaOrdered By: Jeana Martini on 08-22-2022 Glucose [Mass/Vol] 141 mg/dL 70-100 [facility] Comment on above: ADA recommended refe rence rangeRandom Glucose Reference Range is dependent on time and content of last meal. Glucose of more than 200 mg/dL in a nonstressed, ambulatory subject supports the diagnosis of Diabetes Mellitus. Magnesiumon 08-22-2022 Magnesium [Mass/Vol] 1.6 mg/dL Low 1.9-2.7 [facility] Comment on above: Result Comment: PERF ORMED BY: [facility] [address] [place] [address] PATHOLOGIST MEDICAL BILLING REPRESENTATIVE JACIEL BEASLEY M.D. Performed By: #### C UBLD #### [facility] [address] [place] [id number] [place] Magnesium [Mass/volume] in S hellen or PlasmaOrdered By: Jeana Martini on 08-22-2022 Magnesium [Mass/Vol] 1.6 mg/dL 1.9-2.7 [facility] No Panel InformationOrdered By: Jeana Martini on 08-22-2022 Bedside Glucose Comment Glu2: cleaned meter [facility] Estimated GFR (CKD-EPI) 55.771 mL/Min [facility] Creatinine Clearance (Chem 70.62 [facility] Phosphate [Mass/volume] in S hellen or PlasmaOrdered By: Jeana Martini on 08-22-2022 Phosphate [Mass/Vol] 3.8 mg/dL 3.7-7.2 [facility] Phosphoruson 08-22-2022 Phosphate [Mass/Vol] 3.8 mg/dL Normal 3.7-7.2 [facility] Comment on above: Performed By: #### C UBLD #### [facility] [address] Potassium [Moles/volume] in Serum or PlasmaOrdered By: Jeana Martini on 08-22-2022 Potassium [Moles/Vol] 4.0 mmol/L 3.5-5.1 [facility] Serum or plasma anion gap de terminationOrdered By: Jeana Martini on 08-22-2022 Anion gap [Moles/Vol] 10.1 mmol/L 6.0-15.0 [facility] Sodium [Moles/volume] in Ser um or PlasmaOrdered By: Jeana Martini on 08-22-2022 Sodium [Moles/Vol] 143 mmol/L 136-145 [facility] Urea nitrogen [Mass/volume] in Serum or PlasmaOrdered By: Jeana Martini on 08-22-2022 Urea nitrogen [Mass/Vol] 20 mg/dL 7-25 [facility] Basic Metabolic Panelon 07-25 Anion gap [Moles/Vol] 11.0 mmol/L Normal 6.0-15.0 [facility] Comment on above: Performed By: #### U RDS, ADDONUAPLUS #### [facility] [address] [place] [address] [place] Calcium [Mass/Vol] 8.9 mg/dL Normal 8.6-10.3 [facility] Comment on above: Performed By: #### U RDS, ADDONUAPLUS #### [facility] [address] [place] [id number] [place] Chloride [Moles/Vol] 109 mmol/L High 98-107 [facility] Comment on above: Performed By: #### U SUE, ADDONUAPLUS #### [facility] [address] [place] [address] [place] CO2 [Moles/Vol] 26.3 mmol/L Normal 21.0-31.0 [facility] Comment on above: Performed By: #### U SUE, ADDONUAPLUS #### [facility] [address] [place] [address] [place] Creatinine [Mass/Vol] 1.47 mg/dL Significan t change up 0.60-1.20 [facility] Comment on above: Performed By: #### U SUE, ADDONUAPLUS #### [facility] [address] [place] [address] [place] Creatinine Clr Calc Pharmacy 58.52 [facility] Comment on above: Performed By: #### U SUE, ADDONUAPLUS #### [facility] [address] [place] [address] [place] GFR/1.73 sq M.predicted MDRD (S/P/Bld) [Vol rate/Area] 44.592 mL/min/{1.73_m2} [facility] Comment on above: Performed By: #### U SUE, ADDONUAPLUS #### [facility] [address] [place] [address] [place] Glucose [Mass/Vol] 119 mg/dL High 70-100 [facility] Comment on above: Result Comment: [place] Glucose Reference Range is dependent on time and content of last meal. Glucose of more than 200 mg/dL in a nonstressed, ambulatory subject supports the diagnosis of Diabetes Mellitus. ADA recommended reference range Performed By: #### U SUE, ADDONUAPLUS #### [facility] [address] [place] [address] [place] Potassium [Moles/Vol] 4.3 mmol/L Normal 3.5-5.1 [facility] Comment on above: Performed By: #### U SUE, ADDONUAPLUS #### [facility] [address] [place] [address] [place] Sodium [Moles/Vol] 142 mmol/L Normal 136-145 [facility] Comment on above: Performed By: #### U RDS, ADDONUAPLUS #### [facility] [address] Urea nitrogen [Mass/Vol] 18 mg/dL Normal 7-25 [facility] Comment on above: Performed By: #### U RDS, ADDONUAPLUS #### [facility] [address] [place] [address] [place] Basophils Auto (Bld) [#/Vol] Ordered By: Jeana Martini on 08-21-2022 Basophils (Bld) [#/Vol] 0.1 10*3/uL 0.0-0.2 [facility] Basophils/100 WBC Auto (Bld) Ordered By: Jeana Martini on 08-21-2022 Basophils/100 WBC (Bld) 0.8 % . [facility] Complete Blood Count Auto Di ffon 08-21-2022 Basophils (Bld) [#/Vol] 0.1 10*3/uL Normal 0.0-0.2 [facility] Comment on above: Result Comment: PERF ORMED BY: [place] [address] PATHOLOGIST MEDICAL BILLING REPRESENTATIVE JACIEL BEASLEY M.D. Performed By: #### U RDS, ADDONUAPLUS #### [facility] [address] [place] [address] Basophils/100 WBC (Bld) 0.8 % Normal . [facility] Comment on above: Performed By: #### U RDS, ADDONUAPLUS #### [facility] [address] [place] [address] [place] Eosinophils (Bld) [#/Vol] 0.2 10*3/uL Normal 0.0-0.45 [facility] Comment on above: Performed By: #### U RDS, ADDONUAPLUS #### [place] [address] [place] Eosinophils/100 WBC (Bld) 1.8 % Normal . [facility] Comment on above: Performed By: #### U RDS, ADDONUAPLUS #### [address] Erythrocyte distribution width (RBC) [Ratio] 14.5 % Normal 11.9-15.3 [facility] Comment on above: Performed By: #### U RDS, ADDONUAPLUS #### [address] Hematocrit (Bld) [Volume fraction] 31.3 % Low 34.0-46.4 [facility] Comment on above: Performed By: #### U RDS, ADDONUAPLUS #### [address] Hemoglobin (Bld) [Mass/Vol] 10.7 g/dL Low 11.8-15.4 [facility] Comment on above: Performed By: #### U RDS, ADDONUAPLUS #### [address] Lymphocytes (Bld) [#/Vol] 1.7 10*3/uL Normal 1.00-4.8 [facility] Comment on above: Performed By: #### U RDS, ADDONUAPLUS #### [address] Lymphocytes/100 WBC (Bld) 20.6 % Normal . [facility] Comment on above: Performed By: #### U RDS, ADDONUAPLUS #### [address] MCH (RBC) [Entitic mass] 31.5 pg Normal 24.7-34.3 [facility] Comment on above: Performed By: #### U RDS, ADDONUAPLUS #### [address] MCV (RBC) [Entitic vol] 91.8 fL Normal 80-100 [facility] Comment on above: Performed By: #### U RDS, ADDONUAPLUS #### [address] Mean Corpuscular HGB Conc 34.3 g/dL Normal 32.0-35.0 [facility] Comment on above: Performed By: #### U RDS, ADDONUAPLUS #### [facility] [address] [place] [address] [place] Monocytes (Bld) [#/Vol] 0.6 10*3/uL Normal 0.0-0.8 [facility] Comment on above: Performed By: #### U RDS, ADDONUAPLUS #### [facility] [address] Monocytes/100 WBC (Bld) 7.4 % Normal . [facility] Comment on above: Performed By: #### U RDS, ADDONUAPLUS #### [facility] [address] Neutrophils (Bld) [#/Vol] 5.7 10*3/uL Normal 1.8-7.7 [facility] Comment on above: Performed By: #### U RDS, ADDONUAPLUS #### [address] Neutrophils/100 WBC (Bld) 69.4 % Normal . [facility] Comment on above: Performed By: #### U RDS, ADDONUAPLUS #### [facility] [address] [place] [address] NRBC% 0.0 /100{WBC} Normal 0-0.5 [facility] Comment on above: Performed By: #### U RDS, ADDONUAPLUS #### [facility] [address] [place] [address] [place] Platelet mean volume (Bld) [Entitic vol] 6.9 fL Normal 6.3-10.7 [facility] Comment on above: Performed By: #### U RDS, ADDONUAPLUS #### [facility] [address] [place] [address] [place] Platelets (Bld) [#/Vol] 291 10*3/uL Normal 150-450 [facility] Comment on above: Performed By: #### U RDS, ADDONUAPLUS #### [facility] [address] [place] [address] [place] RBC (Bld) [#/Vol] 3.41 10*6/uL Low 3.60-5.00 [facility] Comment on above: Performed By: #### U MI ROGERSONOTONIELPLUS #### [facility] [address] [place] [address] WBC (Bld) [#/Vol] 8.2 10*3/uL Normal 3.8-11.6 [facility] Comment on above: Performed By: #### U SUE ADDONUAPLUS #### [facility] [address] [place] [address] Eosinophils Auto (Bld) [#/Vo l]Ordered By: Jeana Martini on 08-21-2022 Eosinophils (Bld) [#/Vol] 0.2 10*3/uL 0.0-0.45 [facility] Eosinophils/100 WBC Auto (Bl d)Ordered By: Jeana Martini on 08-21-2022 Eosinophils/100 WBC (Bld) 1.8 % . [facility] Erythrocyte distribution wid th Auto (RBC) [Ratio]Ordered By: Jeana Martini on 08-21-2022 Erythrocyte distribution width (RBC) [Ratio] 14.5 % 11.9-15.3 [facility] Glucose Poct Glucometerson 0 08-21-2022 Commemt1 Glu2: Cleaned Meter [facility] Comment on above: Result Comment: PERF ORMED BY: [place] [address] PATHOLOGIST MEDICAL BILLING REPRESENTATIVE JACIEL BEASLEY M.D. Performed By: #### G LULS #### Point of Care testing , Glucose [Mass/Vol] 339 mg/dL Normal [facility] Comment on above: Result Comment: [facility] Glucose Reference Range is dependent on time and content of last meal. Glucose of more than 200 mg/dL in a nonstressed, ambulatory subject supports the diagnosis of Diabetes Mellitus. Performed By: #### G LULS #### Point of Care testing , Commemt1 Glu2: Cleaned Meter Normal [facility] Comment on above: Result Comment: PERF ORMED BY: [place] [address] PATHOLOGIST MEDICAL BILLING REPRESENTATIVE JACIEL BEASLEY M.D. Performed By: #### C UBLD #### [address] Glucose [Mass/Vol] 206 mg/dL Normal [facility] Comment on above: Result Comment: [place] om Glucose Reference Range is dependent on time and content of last meal. Glucose of more than 200 mg/dL in a nonstressed, ambulatory subject supports the diagnosis of Diabetes Mellitus. Performed By: #### C UBLD #### [address] Glucose [Mass/Vol] 81 mg/dL Normal [facility] Comment on above: Result Comment: [place] om Glucose Reference Range is dependent on time and content of last meal. Glucose of more than 200 mg/dL in a nonstressed, ambulatory subject supports the diagnosis of Diabetes Mellitus. PERFORMED BY: [place] [address] PATHOLOGIST MEDICAL BILLING REPRESENTATIVE JACIEL BEASLEY M.D. Performed By: #### U RDS, ADDONUAPLUS #### [address] Commemt1 Glu2: Cleaned Meter Normal [facility] Comment on above: Result Comment: PERF ORMED BY: [place] [address] PATHOLOGIST MEDICAL BILLING REPRESENTATIVE JACIEL BEASLEY M.D. Performed By: #### G LULS #### Point of Care testing , Glucose [Mass/Vol] 109 mg/dL Normal [facility] Comment on above: Result Comment: [place] om Glucose Reference Range is dependent on time and content of last meal. Glucose of more than 200 mg/dL in a nonstressed, ambulatory subject supports the diagnosis of Diabetes Mellitus. Performed By: #### G LULS #### Point of Care testing , Hematocrit Auto (Bld) [Volum e fraction]Ordered By: Jeana Martini on 08-21-2022 Hematocrit (Bld) [Volume fraction] 31.3 % 34.0-46.4 [facility] Hemoglobin [Mass/volume] in BloodOrdered By: Jeana Martini on 08-21-2022 Hemoglobin (Bld) [Mass/Vol] 10.7 g/dL 11.8-15.4 [facility] Leukocytes [#/volume] correc shantel for nucleated erythrocytes in Blood by Automated counOrdered By: Jeana Martini on 08-21-2022 WBC corrected for nucl RBC Auto (Bld) [#/Vol] 8.2 10*3/uL 3.8-11.6 [facility] Lymphocytes Auto (Bld) [#/Vo l]Ordered By: Jeana Martini on 08-21-2022 Lymphocytes (Bld) [#/Vol] 1.7 10*3/uL 1.00-4.8 [facility] Lymphocytes/100 WBC Auto (Bl d)Ordered By: Jeana Martini on 08-21-2022 Lymphocytes/100 WBC (Bld) 20.6 % . [facility] MCH Auto (RBC) [Entitic mass ]Ordered By: Jeana Martini on 08-21-2022 MCH (RBC) [Entitic mass] 31.5 pg 24.7-34.3 [facility] MCHC Auto (RBC) [Mass/Vol]Or dered By: Jeana Martini on 08-21-2022 MCHC (RBC) [Mass/Vol] 34.3 g/dL 32.0-35.0 [facility] MCV Auto (RBC) [Entitic vol] Ordered By: Jeana Martini on 08-21-2022 MCV (RBC) [Entitic vol] 91.8 fL 80-100 [facility] Magnesiumon 08-21-2022 Magnesium [Mass/Vol] 1.4 mg/dL Low 1.9-2.7 [facility] Comment on above: Result Comment: PERF ORMED BY: [place] [address] PATHOLOGIST MEDICAL BILLING REPRESENTATIVE JACIEL BEASLEY M.D. Performed By: #### U RDS, ADDONUAPLUS #### [address] Monocytes Auto (Bld) [#/Vol] Ordered By: Jeana Martini on 08-21-2022 Monocytes (Bld) [#/Vol] 0.6 10*3/uL 0.0-0.8 [facility] Monocytes/100 WBC Auto (Bld) Ordered By: Jeana Martini on 08-21-2022 Monocytes/100 WBC (Bld) 7.4 % . [facility] Neutrophils Auto (Bld) [#/Vo l]Ordered By: Jeana Martini on 08-21-2022 Neutrophils (Bld) [#/Vol] 5.7 10*3/uL 1.8-7.7 [facility] Neutrophils/100 WBC Auto (Bl d)Ordered By: Jeana Martini on 08-21-2022 Neutrophils/100 WBC (Bld) 69.4 % . [facility] Nucleated erythrocytes [Pres ence] in Blood by Automated countOrdered By: Jeana Martini on 08-21-2022 Nucleated RBC Auto Ql (Bld) 0.0 /100{WBC} 0-0.5 [facility] Platelet mean volume Auto (B ld) [Entitic vol]Ordered By: Jeana Martini on 08-21-2022 Platelet mean volume (Bld) [Entitic vol] 6.9 fL 6.3-10.7 [facility] Platelets Auto (Bld) [#/Vol] Ordered By: Jeana Martini on 08-21-2022 Platelets (Bld) [#/Vol] 291 10*3/uL 150-450 [facility] RBC Auto (Bld) [#/Vol]Ordere d By: Jeana Martini on 08-21-2022 RBC (Bld) [#/Vol] 3.41 10*6/uL 3.60-5.00 [facility] WBC Auto (Bld) [#/Vol]Ordere d By: Jeana Martini on 08-21-2022 WBC (Bld) [#/Vol] 8.2 10*3/uL 3.8-11.6 [facility] A1C with Estimated Average G luon 08-20-2022 Glucose [Mass/Vol] 220 mg/dL Normal [facility] Comment on above: Result Comment: PERF ORMED BY: [place] [address] PATHOLOGIST MEDICAL BILLING REPRESENTATIVE JACIEL BEASLEY M.D. Performed By: #### C UBLD #### [facility] [address] [place] [address] HbA1c (Bld) [Mass fraction] 9.3 % High 4.3-5.6 [facility] Comment on above: Result Comment: Incr eased risk for diabetes: 5.7 - 6.4 diabetes: >6.4 glycemic control for adults with diabetes: <7.0 Performed By: #### C UBLD #### [facility] [address] [place] [address] Activated partial thrombopla stin time (aPTT) in platelet poor plasma by coagulation aOrdered By: Jacob Talbot on 08-20-2022 aPTT Coag (PPP) [Time] 62.3 s 25.1-36.5 [facility] Alanine aminotransferase [En zymatic activity/volume] in Serum or PlasmaOrdered By: Jacob Talbot on 08-20-2022 ALT [Catalytic activity/Vol] 7 U/L 7-52 [facility] Albumin [Mass/volume] in Ser um or Plasma by Bromocresol green (BCG) dye binding methoOrdered By: Jacob Talbot on 08-20-2022 Albumin BCG dye [Mass/Vol] 3.6 g/dL 3.5-5.7 [facility] Alkaline phosphatase [Enzyma tic activity/volume] in Serum or PlasmaOrdered By: Jacob Talbot on 08-20-2022 ALP [Catalytic activity/Vol] 82 U/L 34-104 [facility] Amphetamine Screen Ql (U)Ord ered By: Jacob Talbot on 08-20-2022 Amphetamines Ql (U) Negative Negative [facility] Aspartate aminotransferase [ Enzymatic activity/volume] in Serum or PlasmaOrdered By: Jacob Talbot on 08-20-2022 AST [Catalytic activity/Vol] 9 U/L 13-39 [facility] Automated erythrocytes count in urine sediment (number/area)Ordered By: Jacob Talbot on 08-20-2022 RBC Auto (Urine sed) [#/Area] 5-9 [HPF] 0-4 [facility] Automated leukocytes count i n urine sediment (number/area)Ordered By: Jacob Galoroderick on 08-20-2022 WBC Auto (Urine sed) [#/Area] 10-19 [HPF] 0-4 [facility] Bacterial blood cultureOrder ed By: Jeana Martini on 08-20-2022 Bacteria identified Cx Nom (Bld) NO GROWTH 5 DAYS [facility] Barbiturates [Presence] in U rine by Screen methodOrdered By: Jacob Talbot on 08-20-2022 Barbiturates Screen Ql (U) Negative Negative [facility] Basic Metabolic Panelon 07-24 Anion gap [Moles/Vol] 10.9 mmol/L Normal 6.0-15.0 [facility] Comment on above: Performed By: #### C UBLD #### [facility] [address] [place] [address] [place] Calcium [Mass/Vol] 8.6 mg/dL Normal 8.6-10.3 [facility] Comment on above: Performed By: #### C UBLD #### [facility] [address] [place] [address] [place] Chloride [Moles/Vol] 107 mmol/L Normal 98-107 [facility] Comment on above: Performed By: #### C UBLD #### [facility] [address] [place] [address] [place] CO2 [Moles/Vol] 26.5 mmol/L Normal 21.0-31.0 [facility] Comment on above: Performed By: #### C UBLD #### [facility] [address] [place] [id number] [place] Creatinine [Mass/Vol] 0.81 mg/dL Normal 0.60-1.20 [facility] Comment on above: Performed By: #### C UBLD #### [facility] [address] [place] [id number] [place] Creatinine Clr Calc Pharmacy 106.20 [facility] Comment on above: Performed By: #### C UBLD #### [facility] [address] [place] [address] [place] GFR/1.73 sq M.predicted MDRD (S/P/Bld) [Vol rate/Area] mL/min/{1.73_m2} Normal [facility] Comment on above: Performed By: #### C UBLD #### [facility] [address] [place] [address] [place] Glucose [Mass/Vol] 198 mg/dL High 70-100 [facility] Comment on above: Result Comment: [facility] Glucose Reference Range is dependent on time and content of last meal. Glucose of more than 200 mg/dL in a nonstressed, ambulatory subject supports the diagnosis of Diabetes Mellitus. ADA recommended reference range Performed By: #### C UBLD #### [address] Potassium [Moles/Vol] 3.4 mmol/L Low 3.5-5.1 [facility] Comment on above: Performed By: #### C UBLD #### [place] [address] [place] Sodium [Moles/Vol] 141 mmol/L Normal 136-145 [facility] Comment on above: Performed By: #### C UBLD #### [address] Urea nitrogen [Mass/Vol] 12 mg/dL Normal 7-25 [facility] Comment on above: Performed By: #### C UBLD #### [place] [address] [place] Basophils Auto (Bld) [#/Vol] Ordered By: Jacob Talbot on 08-20-2022 Basophils (Bld) [#/Vol] 0.1 10*3/uL 0.0-0.2 [facility] Basophils/100 WBC Auto (Bld) Ordered By: Jacob Talbot on 08-20-2022 Basophils/100 WBC (Bld) 0.7 % . [facility] Benzodiazepines Screen Ql (U )Ordered By: Jacob Talbot on 08-20-2022 Benzodiazepines Ql (U) Negative Negative [facility] Benzoylecgonine [Presence] i n Urine by Screen methodOrdered By: Jacob Talbot on 08-20-2022 Benzoylecgonine Screen Ql (U) Negative Negative [facility] Bilirubin Test strip Ql (U)O rdered By: Jacob Talbot on 08-20-2022 Bilirubin Ql (U) Negative Negative [facility] Bilirubin.total [Mass/volume ] in Serum or PlasmaOrdered By: Jacob Talbot on 08-20-2022 Bilirubin [Mass/Vol] 0.4 mg/dL 0.3-1.0 [facility] Blood Cultureon 08-20-2022 Bacteria identified Cx Nom (Bld) NO GROWTH 5 DAYS PERFORMED BY: [place] [address] PATHOLOGIST MEDICAL BILLING REPRESENTATIVE JACIEL BEASLEY M.D. [facility] Comment on above: Performed By: #### C UBLD #### [facility] [address] [place] [address] Bacteria identified Cx Nom (Bld) NO GROWTH 5 DAYS PERFORMED BY: [place] [address] PATHOLOGIST MEDICAL BILLING REPRESENTATIVE JACIEL BEASLEY M.D. [facility] Comment on above: Performed By: #### C UBLD #### [address] C reactive protein [Mass/vol ume] in Serum or PlasmaOrdered By: Jeana Martini on 08-20-2022 CRP [Mass/Vol] 1.5 mg/dL 0.0-0.5 [facility] C reactive protein [Mass/vol ume] in Serum or PlasmaOrdered By: Jacob Talbot on 08-20-2022 CRP [Mass/Vol] 1.9 mg/dL 0.0-0.5 [facility] C-Reactive Proteinon 023 C-Reactive Protein 1.5 mg/dL High 0.0-0.5 [facility] Comment on above: Order Comment: Comme nt Add on to an already drawn sample Result Comment: PERF ORMED BY: [place] [address] PATHOLOGIST MEDICAL BILLING REPRESENTATIVE JACIEL BEASLEY M.D. Performed By: #### C UBLD #### [facility] [address] [place] [address] C-Reactive Protein 1.9 mg/dL High 0.0-0.5 [facility] Comment on above: Result Comment: PERF ORMED BY: [place] [address] PATHOLOGIST MEDICAL BILLING REPRESENTATIVE JACIEL BEASLEY M.D. Performed By: #### C UBLD #### [facility] [address] [place] [address] Calcium [Mass/volume] in Ser um or PlasmaOrdered By: Jacob Talbot on 08-20-2022 Calcium [Mass/Vol] 9.2 mg/dL 8.6-10.3 [facility] Cannabinoids [Presence] in U rine by Screen methodOrdered By: Jacob Talbot on 08-20-2022 Cannabinoids Screen Ql (U) Negative Negative [facility] Comment on above: These are unconfirme d results and should not be used for legal purposes. Drug Cut-Off Concentration: AMPH 1000 ng/mL DIANE 200 ng/mL ALICE 200 ng/mL COCM 300 ng/mL OP 300 ng/mL PCP 25 ng/mL THC 20 ng/mL Carbon dioxide, total [Moles /volume] in Serum or PlasmaOrdered By: Jacob Talbot on 08-20-2022 CO2 [Moles/Vol] 28.0 mmol/L 21.0-31.0 [facility] Chloride [Moles/volume] in S hellen or PlasmaOrdered By: Jacob Talbot on 08-20-2022 Chloride [Moles/Vol] 105 mmol/L 98-107 [facility] Color Auto (U)Ordered By: Lenin Talbot on 08-20-2022 Color (U) Yellow Yellow [facility] Complete Blood Count Auto Di ffon 08-20-2022 Basophils (Bld) [#/Vol] 0.0 10*3/uL Normal 0.0-0.2 [facility] Comment on above: Result Comment: PERF ORMED BY: [place] [address] PATHOLOGIST MEDICAL BILLING REPRESENTATIVE JACIEL BEASLEY M.D. Performed By: #### U RDS, ADDONUAPLUS #### [address] Basophils/100 WBC (Bld) 0.5 % Normal . [facility] Comment on above: Performed By: #### U RDS, ADDONUAPLUS #### [address] Eosinophils (Bld) [#/Vol] 0.1 10*3/uL Normal 0.0-0.45 [facility] Comment on above: Performed By: #### U RDS, ADDONUAPLUS #### [place] [address] [place] Eosinophils/100 WBC (Bld) 1.1 % Normal . [facility] Comment on above: Performed By: #### U RDS, ADDONUAPLUS #### [address] Erythrocyte distribution width (RBC) [Ratio] 14.0 % Normal 11.9-15.3 [facility] Comment on above: Performed By: #### U RDS, ADDONUAPLUS #### [address] Hematocrit (Bld) [Volume fraction] 31.0 % Low 34.0-46.4 [facility] Comment on above: Performed By: #### U RDS, ADDONUAPLUS #### [place] [address] [place] Hemoglobin (Bld) [Mass/Vol] 10.5 g/dL Low 11.8-15.4 [facility] Comment on above: Performed By: #### U RDS, ADDONUAPLUS #### [place] [address] [place] Lymphocytes (Bld) [#/Vol] 2.0 10*3/uL Normal 1.00-4.8 [facility] Comment on above: Performed By: #### U RDS, ADDONUAPLUS #### [facility] [address] Lymphocytes/100 WBC (Bld) 22.6 % Normal . [facility] Comment on above: Performed By: #### U RDS, ADDONUAPLUS #### [facility] [address] MCH (RBC) [Entitic mass] 31.1 pg Normal 24.7-34.3 [facility] Comment on above: Performed By: #### U RDS, ADDONUAPLUS #### [address] MCV (RBC) [Entitic vol] 91.8 fL Normal 80-100 [facility] Comment on above: Performed By: #### U RDS, ADDONUAPLUS #### [address] Mean Corpuscular HGB Conc 33.9 g/dL Normal 32.0-35.0 [facility] Comment on above: Performed By: #### U RDS, ADDONUAPLUS #### [place] [address] [place] Monocytes (Bld) [#/Vol] 0.6 10*3/uL Normal 0.0-0.8 [facility] Comment on above: Performed By: #### U RDS, ADDONUAPLUS #### [place] [address] [place] Monocytes/100 WBC (Bld) 6.9 % Normal . [facility] Comment on above: Performed By: #### U RDS, ADDONUAPLUS #### [place] [address] [place] Neutrophils (Bld) [#/Vol] 6.2 10*3/uL Normal 1.8-7.7 [facility] Comment on above: Performed By: #### U RDS, ADDONUAPLUS #### [place] [address] [place] Neutrophils/100 WBC (Bld) 68.9 % Normal . [facility] Comment on above: Performed By: #### U RDS, ADDONUAPLUS #### [facility] [address] [place] [address] NRBC% 0.2 /100{WBC} Normal 0-0.5 [facility] Comment on above: Performed By: #### U RDS, ADDONUAPLUS #### [address] Platelet mean volume (Bld) [Entitic vol] 6.8 fL Normal 6.3-10.7 [facility] Comment on above: Performed By: #### U RDS, ADDONUAPLUS #### [address] Platelets (Bld) [#/Vol] 293 10*3/uL Normal 150-450 [facility] Comment on above: Performed By: #### U RDS, ADDONUAPLUS #### [address] RBC (Bld) [#/Vol] 3.38 10*6/uL Low 3.60-5.00 [facility] Comment on above: Performed By: #### U RDS, ADDONUAPLUS #### [address] WBC (Bld) [#/Vol] 8.9 10*3/uL Normal 3.8-11.6 [facility] Comment on above: Performed By: #### U RDS, ADDONUAPLUS #### [place] [address] [place] Basophils (Bld) [#/Vol] 0.1 10*3/uL Normal 0.0-0.2 [facility] Comment on above: Performed By: #### C UBLD #### [place] [address] [place] Basophils/100 WBC (Bld) 0.7 % Normal . [facility] Comment on above: Performed By: #### C UBLD #### [place] [address] [place] Eosinophils (Bld) [#/Vol] 0.1 10*3/uL Normal 0.0-0.45 [facility] Comment on above: Performed By: #### C UBLD #### [address] Eosinophils/100 WBC (Bld) 1.3 % Normal . [facility] Comment on above: Performed By: #### C UBLD #### [address] Erythrocyte distribution width (RBC) [Ratio] 14.5 % Normal 11.9-15.3 [facility] Comment on above: Performed By: #### C UBLD #### [address] Hematocrit (Bld) [Volume fraction] 34.4 % Normal 34.0-46.4 [facility] Comment on above: Performed By: #### C UBLD #### [address] Hemoglobin (Bld) [Mass/Vol] 11.6 g/dL Low 11.8-15.4 [facility] Comment on above: Performed By: #### C UBLD #### [address] Lymphocytes (Bld) [#/Vol] 2.3 10*3/uL Normal 1.00-4.8 [facility] Comment on above: Performed By: #### C UBLD #### [address] Lymphocytes/100 WBC (Bld) 27.3 % Normal . [facility] Comment on above: Performed By: #### C UBLD #### [address] MCH (RBC) [Entitic mass] 30.8 pg Normal 24.7-34.3 [facility] Comment on above: Performed By: #### C UBLD #### [address] MCV (RBC) [Entitic vol] 91.2 fL Normal 80-100 [facility] Comment on above: Performed By: #### C UBLD #### [address] Mean Corpuscular HGB Conc 33.8 g/dL Normal 32.0-35.0 [facility] Comment on above: Performed By: #### C UBLD #### [address] Monocytes (Bld) [#/Vol] 0.5 10*3/uL Normal 0.0-0.8 [facility] Comment on above: Performed By: #### C UBLD #### [address] Monocytes/100 WBC (Bld) 20.72 % High 0.00-20.00 [facility] Comment on above: Result Comment: For adults in ED, MDW > 20.0 may be associated with a higher risk of sepsis during the first 12 hrs of hospital admission Performed By: #### C UBLD #### [address] Monocytes/100 WBC (Bld) 6.0 % Normal . [facility] Comment on above: Performed By: #### C UBLD #### [address] Neutrophils (Bld) [#/Vol] 5.5 10*3/uL Normal 1.8-7.7 [facility] Comment on above: Performed By: #### C UBLD #### [address] Neutrophils/100 WBC (Bld) 64.7 % Normal . [facility] Comment on above: Performed By: #### C UBLD #### [place] [address] [place] NRBC% 0.0 /100{WBC} Normal 0-0.5 [facility] Comment on above: Performed By: #### C UBLD #### [address] Platelet mean volume (Bld) [Entitic vol] 6.9 fL Normal 6.3-10.7 [facility] Comment on above: Performed By: #### C UBLD #### [address] Platelets (Bld) [#/Vol] 326 10*3/uL Normal 150-450 [facility] Comment on above: Performed By: #### C UBLD #### [address] RBC (Bld) [#/Vol] 3.77 10*6/uL Normal 3.60-5.00 [facility] Comment on above: Performed By: #### C UBLD #### [address] WBC (Bld) [#/Vol] 8.5 10*3/uL Normal 3.8-11.6 [facility] Comment on above: Performed By: #### C UBLD #### [address] Comprehensive Metabolic Pane tapan 08-20-2022 Albumin [Mass/Vol] 3.6 g/dL Normal 3.5-5.7 [facility] Comment on above: Performed By: #### C UBLD #### [address] Albumin/Globulin [Mass ratio] 1.3 {ratio} Normal [facility] Comment on above: Performed By: #### C UBLD #### [address] ALP [Catalytic activity/Vol] 82 U/L Normal 34-104 [facility] Comment on above: Performed By: #### C UBLD #### [address] ALT [Catalytic activity/Vol] 7 U/L Normal 7-52 [facility] Comment on above: Performed By: #### C UBLD #### [address] Anion gap [Moles/Vol] 11.3 mmol/L Normal 6.0-15.0 [facility] Comment on above: Performed By: #### C UBLD #### [facility] [address] AST [Catalytic activity/Vol] 9 U/L Low 13-39 [facility] Comment on above: Performed By: #### C UBLD #### [facility] [address] Bilirubin [Mass/Vol] 0.4 mg/dL Normal 0.3-1.0 [facility] Comment on above: Performed By: #### C UBLD #### [facility] [address] Calcium [Mass/Vol] 9.2 mg/dL Normal 8.6-10.3 [facility] Comment on above: Performed By: #### C UBLD #### [facility] [address] Chloride [Moles/Vol] 105 mmol/L Normal 98-107 [facility] Comment on above: Performed By: #### C UBLD #### [facility] [address] CO2 [Moles/Vol] 28.0 mmol/L Normal 21.0-31.0 [facility] Comment on above: Performed By: #### C UBLD #### [facility] [address] Creatinine [Mass/Vol] 0.93 mg/dL Normal 0.60-1.20 [facility] Comment on above: Performed By: #### C UBLD #### [facility] [address] [place] [address] [place] Creatinine Clr Calc Pharmacy 91.29 [facility] Comment on above: Performed By: #### C UBLD #### [facility] [address] [place] [address] [place] GFR/1.73 sq M.predicted MDRD (S/P/Bld) [Vol rate/Area] mL/min/{1.73_m2} [facility] Comment on above: Performed By: #### C UBLD #### [address] Globulin (S) [Mass/Vol] 2.8 g/dL Normal [facility] Comment on above: Performed By: #### C UBLD #### [address] Glucose [Mass/Vol] 234 mg/dL High 70-100 [facility] Comment on above: Result Comment: [facility] Glucose Reference Range is dependent on time and content of last meal. Glucose of more than 200 mg/dL in a nonstressed, ambulatory subject supports the diagnosis of Diabetes Mellitus. ADA recommended reference range Performed By: #### C UBLD #### [address] Potassium [Moles/Vol] 3.3 mmol/L Low 3.5-5.1 [facility] Comment on above: Performed By: #### C UBLD #### [address] Protein [Mass/Vol] 6.4 g/dL Normal 6.4-8.9 [facility] Comment on above: Performed By: #### C UBLD #### [address] Sodium [Moles/Vol] 141 mmol/L Normal 136-145 [facility] Comment on above: Performed By: #### C UBLD #### [address] Urea nitrogen [Mass/Vol] 15 mg/dL Normal 7-25 [facility] Comment on above: Performed By: #### C UBLD #### [place] [address] [place] Creatinine [Mass/volume] in Serum or PlasmaOrdered By: Jacob Talbot on 08-20-2022 Creatinine [Mass/Vol] 0.93 mg/dL 0.60-1.20 [facility] Dipstick and Microscopicon 0 08-20-2022 Appearance (U) Clear Normal Clear [facility] Comment on above: Order Comment: Name Collection Type:: Clean-Voided Midstream Performed By: #### U RDS, ADDONUAPLUS #### [facility] [address] [place] [address] [place] Bacteria,Urine 1+ High None Seen [facility] Comment on above: Order Comment: Name Collection Type:: Clean-Voided Midstream Performed By: #### U RDS, ADDONUAPLUS #### [place] [address] [place] Bilirubin,Urine Negative Normal Negative [facility] Comment on above: Order Comment: Name Collection Type:: Clean-Voided Midstream Performed By: #### U RDS, ADDONUAPLUS #### [address] Color (U) Yellow Normal Yellow [facility] Comment on above: Order Comment: Name Collection Type:: Clean-Voided Midstream Performed By: #### U RDS, ADDONUAPLUS #### [place] [address] [place] Glucose Ql (U) >=1000 High Normal [facility] Comment on above: Order Comment: Name Collection Type:: Clean-Voided Midstream Performed By: #### U RDS, ADDONUAPLUS #### [address] Hyaline Casts,Urine 0-8 Normal 0-8 [facility] Comment on above: Order Comment: Name Collection Type:: Clean-Voided Midstream Result Comment: PERF ORMED BY: [place] [address] PATHOLOGIST MEDICAL BILLING REPRESENTATIVE JACIEL BEASLEY M.D. Performed By: #### U RDS, ADDONUAPLUS #### [facility] [address] [place] [address] [place] Ketones Ql (U) Negative Normal Negative [facility] Comment on above: Order Comment: Name Collection Type:: Clean-Voided Midstream Performed By: #### U RDS, ADDONUAPLUS #### [address] Leukocyte esterase Test strip Ql (U) Negative Normal Negative [facility] Comment on above: Order Comment: Name Collection Type:: Clean-Voided Midstream Performed By: #### U RDS, ADDONUAPLUS #### [place] [address] [place] Nitrite,Urine Negative Normal Negative [facility] Comment on above: Order Comment: Name Collection Type:: Clean-Voided Midstream Performed By: #### U RDS, ADDONUAPLUS #### [address] Occult Blood,Urine Trace High Negative [facility] Comment on above: Order Comment: Name Collection Type:: Clean-Voided Midstream Result Comment: PERF ORMED BY: [place] [address] PATHOLOGIST MEDICAL BILLING REPRESENTATIVE JACIEL BEASLEY M.D. Performed By: #### U RDS, ADDONUAPLUS #### [address] pH (U) 6.5 [pH] Normal 5.0-9.0 [facility] Comment on above: Order Comment: Name Collection Type:: Clean-Voided Midstream Performed By: #### U RDS, ADDONUAPLUS #### [address] Protein (U) [Mass/Vol] 100 mg/dL High Negative [facility] Comment on above: Order Comment: Name Collection Type:: Clean-Voided Midstream Performed By: #### U RDS, ADDONUAPLUS #### [place] [address] [place] RBC,Urine 5-9 High 0-4 [facility] Comment on above: Order Comment: Name Collection Type:: Clean-Voided Midstream Performed By: #### U RDS, ADDONUAPLUS #### [address] Specificy [place],Urine 1.017 Normal 1.001-1.030 [facility] Comment on above: Order Comment: Name Collection Type:: Clean-Voided Midstream Performed By: #### U RDS, ADDONUAPLUS #### [facility] [address] [place] [address] [place] Squamous Epithelial Cell,Urine 3-4 High 0-2 [facility] Comment on above: Order Comment: Name Collection Type:: Clean-Voided Midstream Performed By: #### U RDS, ADDONUAPLUS #### [facility] [address] [place] [address] [place] Urobilinogen,Urine Normal Normal Normal [facility] Comment on above: Order Comment: Name Collection Type:: Clean-Voided Midstream Performed By: #### U RDS, ADDONUAPLUS #### [place] [address] [place] WBC,Urine 10-19 High 0-4 [facility] Comment on above: Order Comment: Name Collection Type:: Clean-Voided Midstream Performed By: #### U RDS, ADDONUAPLUS #### [place] [address] [place] Drug Screen,Urineon 08-21-19 23 Amphetamine Screen,Urine Negative Normal Negative [facility] Comment on above: Performed By: #### U RDS, ADDONUAPLUS #### [address] Barbiturate Screen,Urine Negative Normal Negative [facility] Comment on above: Performed By: #### U RDS, ADDONUAPLUS #### [facility] [address] [place] [address] [place] Benzodiazepines Screen,Urine Negative Normal Negative [facility] Comment on above: Performed By: #### U RDS, ADDONUAPLUS #### [facility] [address] [place] [address] Cannabinoid Screen,Urine Negative Normal Negative [facility] Comment on above: Result Comment: Thes e are unconfirmed results and should not be used for legal purposes. Drug Cut-Off Concentration: AMPH 1000 ng/mL DIANE 200 ng/mL ALICE 200 ng/mL COCM 300 ng/mL OP 300 ng/mL PCP 25 ng/mL THC 20 ng/mL PERFORMED BY: [place] [address] PATHOLOGIST MEDICAL BILLING REPRESENTATIVE JACIEL BEASLEY M.D. Performed By: #### U RDS, ADDONUAPLUS #### [facility] [address] [place] [address] [place] Cocaine Screen,Urine Negative Normal Negative [facility] Comment on above: Performed By: #### U RDS, ADDONUAPLUS #### [facility] [address] [place] [address] [place] Opiate Screen,Urine Negative Normal Negative [facility] Comment on above: Performed By: #### U RDS, ADDONUAPLUS #### [facility] [address] [place] [address] [place] Phencyclidine Screen,Urine Negative Normal Negative [facility] Comment on above: Performed By: #### U RDS, ADDONUAPLUS #### [facility] [address] [place] [address] ECG 12 lead ECGon 08-20-2022 ECG 12 lead ECG [place] [address] Electrocardiograph Report Signed Patient: Addie Jean Baptiste MR#: [id number] [birth year] : 1975 Acct:[id number] Age/Sex: 47 / F ADM Date: 08/20/22 Loc: Room: [address] [place] [address] Type: ADM IN Attending Dr: Jeana Martini MD Ordering Provider: Jacob Talbot DO Date of Service: 08/20/22 ECG/ECG 12 lead ECG: Extremity Injury, Lower Copies to: Test Reason : Blood Pressure : 220/095 mmHG Vent. Rate : 097 BPM Atrial Rate : 097 BPM P-R Int : 178 ms QRS Dur : 084 ms QT Int : 362 ms P-R-T Axes : 050 -09 025 degrees QTc Int : 459 ms Normal sinus rhythm Confirmed by Jacob TALBOT DO ([id number]) on 08/20/2022 9:19:40 PM Referred By: Electronically Signed By:Jacob TALBOT DO Transcribed By: MUS Signed By Jacob Talbot DO 0 08/20/222118 Normal [facility] ECG 12 lead ECG [facility] [place] [address] [place] [address] Electrocardiograph Report Signed Patient: Addie Jean Baptiste MR#: [id number] 1 : 1975 Acct:[id number] Age/Sex: 47 / F ADM Date: 08/19/22 Loc: ER Room: Type: [facility] ER Attending Dr: Ordering Provider: Jacob Talbot DO Date of Service: 08/19/22 ECG/ECG 12 lead ECG: Extremity Injury, Lower Copies to: Test Reason : Blood Pressure : / mmHG Vent. Rate : 098 BPM Atrial Rate : 098 BPM P-R Int : 180 ms QRS Dur : 086 ms QT Int : 356 ms P-R-T Axes : 051 022 015 degrees QTc Int : 454 ms Normal sinus rhythm Confirmed by Jacob TALBOT DO ([id number]) on 08/20/2022 1:21:17 AM Referred By: Electronically Signed By:Jacob TALBOT DO Transcribed By: MUS Signed By Jacob Talbot DO 0 08/20/22 0121 Normal [facility] Eosinophils Auto (Bld) [#/Vo l]Ordered By: Jacob Talbot on 08-20-2022 Eosinophils (Bld) [#/Vol] 0.1 10*3/uL 0.0-0.45 [facility] Eosinophils/100 WBC Auto (Bl d)Ordered By: Jacob Talbot on 08-20-2022 Eosinophils/100 WBC (Bld) 1.3 % . [facility] Erythrocyte Sedimentation Ra estephania 08-20-2022 ESR (Bld) [Velocity] 47 mm/h High 0-19 [facility] Comment on above: Result Comment: PERF ORMED BY: [place] [address] PATHOLOGIST MEDICAL BILLING REPRESENTATIVE JACIEL BEASLEY M.D. Performed By: #### C UBLD #### [address] Erythrocyte distribution wid th Auto (RBC) [Ratio]Ordered By: Jacob Talbot on 08-20-2022 Erythrocyte distribution width (RBC) [Ratio] 14.5 % 11.9-15.3 [facility] Erythrocyte sedimentation ra te by Photometric methodOrdered By: Jacob Talbot on 08-20-2022 ESR Photometric method (Bld) [Velocity] 47 mm/hr 0-19 [facility] Globulin Calc (S) [Mass/Vol] Ordered By: Jacob Talbot on 08-20-2022 Globulin (S) [Mass/Vol] 2.8 g/dL [facility] Glucose Glucometer (BldC) [M ass/Vol]Ordered By: Jacob Talbot on 08-20-2022 Glucose [Mass/Vol] 226 mg/dL [facility] Comment on above: Random Glucose Refer ence Range is dependent on time and content of last meal. Glucose of more than 200 mg/dL in a nonstressed, ambulatory subject supports the diagnosis of Diabetes Mellitus. Glucose Poct Glucometerson 0 08-20-2022 Commemt1 Glu2: Cleaned Meter Normal [facility] Comment on above: Result Comment: PERF ORMED BY: [place] [address] PATHOLOGIST MEDICAL BILLING REPRESENTATIVE JACIEL BEASLEY M.D. Performed By: #### C UBLD #### [address] Glucose [Mass/Vol] 97 mg/dL Normal [facility] Comment on above: Result Comment: [place] om Glucose Reference Range is dependent on time and content of last meal. Glucose of more than 200 mg/dL in a nonstressed, ambulatory subject supports the diagnosis of Diabetes Mellitus. Performed By: #### C UBLD #### [facility] [address] [place] [address] Commemt1 Glu2: Cleaned Meter Normal [facility] Comment on above: Result Comment: PERF ORMED BY: [place] [address] PATHOLOGIST MEDICAL BILLING REPRESENTATIVE JACIEL BEASLEY M.D. Performed By: #### G LULS #### Point of Care testing , Glucose [Mass/Vol] 97 mg/dL Normal [facility] Comment on above: Result Comment: [place] om Glucose Reference Range is dependent on time and content of last meal. Glucose of more than 200 mg/dL in a nonstressed, ambulatory subject supports the diagnosis of Diabetes Mellitus. Performed By: #### G LULS #### Point of Care testing , Glucose [Mass/Vol] 316 mg/dL [facility] Comment on above: Result Comment: [place] Glucose Reference Range is dependent on time and content of last meal. Glucose of more than 200 mg/dL in a nonstressed, ambulatory subject supports the diagnosis of Diabetes Mellitus. PERFORMED BY: [address] [place] [address] PATHOLOGIST MEDICAL BILLING REPRESENTATIVE JACIEL BEASLEY M.D. Performed By: #### G LULS #### Point of Care testing , Commemt1 [facility] Comment on above: Result Comment: Glu2 : WILL NOTIFY DR/JAEL Performed By: #### G LULS #### Point of Care testing , Commemt2 Cleaned Meter [facility] Comment on above: Result Comment: PERF ORMED BY: [address] [place] [address] PATHOLOGIST MEDICAL BILLING REPRESENTATIVE JACIEL BEASLEY M.D. Performed By: #### G LULS #### Point of Care testing , Glucose [Mass/Vol] 409 mg/dL Off scale [facility] Comment on above: Result Comment: [place] Glucose Reference Range is dependent on time and content of last meal. Glucose of more than 200 mg/dL in a nonstressed, ambulatory subject supports the diagnosis of Diabetes Mellitus. Performed By: #### G LULS #### Point of Care testing , Commemt1 [facility] Comment on above: Result Comment: Glu2 : WILL NOTIFY DR/RN Performed By: #### G LULS #### Point of Care testing , Commemt2 Cleaned Meter [facility] Comment on above: Result Comment: PERF ORMED BY: [address] [place] [id number] PATHOLOGIST MEDICAL BILLING REPRESENTATIVE JACIEL BEASLEY M.D. Performed By: #### G LULS #### Point of Care testing , Glucose [Mass/Vol] 414 mg/dL Off scale high [facility] Comment on above: Result Comment: [place] om Glucose Reference Range is dependent on time and content of last meal. Glucose of more than 200 mg/dL in a nonstressed, ambulatory subject supports the diagnosis of Diabetes Mellitus. Performed By: #### G LULS #### Point of Care testing , Commemt1 Glu2: Cleaned Meter Normal [facility] Comment on above: Result Comment: PERF ORMED BY: [facility] [address] [facility] [place] [address] PATHOLOGIST MEDICAL BILLING REPRESENTATIVE JACIEL BEASLEY M.D. Performed By: #### G LULS #### Point of Care testing , Glucose [Mass/Vol] 230 mg/dL Normal [facility] Comment on above: Result Comment: [place] om Glucose Reference Range is dependent on time and content of last meal. Glucose of more than 200 mg/dL in a nonstressed, ambulatory subject supports the diagnosis of Diabetes Mellitus. Performed By: #### G LULS #### Point of Care testing , Glucose [Mass/Vol] 241 mg/dL Normal [facility] Comment on above: Result Comment: [place] om Glucose Reference Range is dependent on time and content of last meal. Glucose of more than 200 mg/dL in a nonstressed, ambulatory subject supports the diagnosis of Diabetes Mellitus. PERFORMED BY: [place] [address] PATHOLOGIST MEDICAL BILLING REPRESENTATIVE JACIEL BEASLEY M.D. Performed By: #### G LULS #### Point of Care testing , Glucose [Mass/Vol] 226 mg/dL Normal [facility] Comment on above: Result Comment: [place] Glucose Reference Range is dependent on time and content of last meal. Glucose of more than 200 mg/dL in a nonstressed, ambulatory subject supports the diagnosis of Diabetes Mellitus. PERFORMED BY: [address] [place] [address] PATHOLOGIST MEDICAL BILLING REPRESENTATIVE JACIEL BEASLEY M.D. Performed By: #### G LULS #### Point of Care testing , Glucose [Mass/volume] in Ser um or PlasmaOrdered By: Jacob Talbot on 08-20-2022 Glucose [Mass/Vol] 234 mg/dL 70-100 [facility] Comment on above: ADA recommended refe rence rangeRandom Glucose Reference Range is dependent on time and content of last meal. Glucose of more than 200 mg/dL in a nonstressed, ambulatory subject supports the diagnosis of Diabetes Mellitus. Glucose mean value [Mass/vol ume] in Blood Estimated from glycated hemoglobinOrdered By: Ezekiel Mathew on 08-20-2022 Average glucose Estimated from glycated hemoglobin (Bld) [Mass/Vol] 220 mg/dL [facility] Hematocrit Auto (Bld) [Volum e fraction]Ordered By: Jaocb Talbot on 08-20-2022 Hematocrit (Bld) [Volume fraction] 34.4 % 34.0-46.4 [facility] Hemoglobin A1c percentageOrd ered By: Ezekiel Mathew on 08-20-2022 HbA1c (Bld) [Mass fraction] 9.3 % 4.3-5.6 [facility] Comment on above: Increased risk for d iabetes: 5.7 - 6.4diabetes: >6.4glycemic control for adults with diabetes: <7.0 Hemoglobin [Mass/volume] in BloodOrdered By: Jacob Talbot on 08-20-2022 Hemoglobin (Bld) [Mass/Vol] 11.6 g/dL 11.8-15.4 [facility] Ketones Auto test strip (U) [Mass/Vol]Ordered By: Jacob Talbot on 08-20-2022 Ketones (U) [Mass/Vol] Negative Negative [facility] Laboratory - Chemistry and C hemistry - challengeOrdered By: Jacob Talbot on 08-20-2022 GFR/1.73 sq M.predicted MDRD (S/P/Bld) [Vol rate/Area] mL/min/{1.73_m2} [facility] Laboratory - CoagulationOrde red By: Jacob Talbot on 08-20-2022 PT Coag (PPP) [Time] 12.2 s 9.0-12.9 [facility] Laboratory - UrinalysisOrder ed By: Jacob Talbot on 08-20-2022 Hyaline casts LM Ql (Urine sed) 0-8 [LPF] 0-8 [facility] Leukocytes [#/volume] correc shantel for nucleated erythrocytes in Blood by Automated counOrdered By: Jacob Talbot on 08-20-2022 WBC corrected for nucl RBC Auto (Bld) [#/Vol] 8.5 10*3/uL 3.8-11.6 [facility] Lymphocytes Auto (Bld) [#/Vo l]Ordered By: Jacob Talbot on 08-20-2022 Lymphocytes (Bld) [#/Vol] 2.3 10*3/uL 1.00-4.8 [facility] Lymphocytes/100 WBC Auto (Bl d)Ordered By: Jacob Talbot on 08-20-2022 Lymphocytes/100 WBC (Bld) 27.3 % . [facility] MCH Auto (RBC) [Entitic mass ]Ordered By: Jacob Talbot on 08-20-2022 MCH (RBC) [Entitic mass] 30.8 pg 24.7-34.3 [facility] MCHC Auto (RBC) [Mass/Vol]Or dered By: Jacob Talbot on 08-20-2022 MCHC (RBC) [Mass/Vol] 33.8 g/dL 32.0-35.0 [facility] MCV Auto (RBC) [Entitic vol] Ordered By: Jacob Talbot on 08-20-2022 MCV (RBC) [Entitic vol] 91.2 fL 80-100 [facility] Magnesiumon 08-20-2022 Magnesium [Mass/Vol] 1.2 mg/dL Low 1.9-2.7 [facility] Comment on above: Performed By: #### C UBLD #### [facility] [address] [place] [address] Magnesium [Mass/volume] in S hellen or PlasmaOrdered By: Jacob Talbot on 08-20-2022 Magnesium [Mass/Vol] 1.2 mg/dL 1.9-2.7 [facility] Monocyte distribution width [Entitic volume] in Blood by AutomatedOrdered By: Jacob Talbot on 08-20-2022 Monocyte distribution width Auto (Bld) [Entitic vol] 20.72 % 0.00-20.00 [facility] Comment on above: For adults in ED, MD W > 20.0 may be associated with a higher risk of sepsis during the first 12 hrs of hospital admission Monocytes Auto (Bld) [#/Vol] Ordered By: Jacob Talbot on 08-20-2022 Monocytes (Bld) [#/Vol] 0.5 10*3/uL 0.0-0.8 [facility] Monocytes/100 WBC Auto (Bld) Ordered By: Jacob Talbot on 08-20-2022 Monocytes/100 WBC (Bld) 6.0 % . [facility] Neutrophils Auto (Bld) [#/Vo l]Ordered By: Jacob Talbot on 08-20-2022 Neutrophils (Bld) [#/Vol] 5.5 10*3/uL 1.8-7.7 [facility] Neutrophils/100 WBC Auto (Bl d)Ordered By: Jacob Talbot on 08-20-2022 Neutrophils/100 WBC (Bld) 64.7 % . [facility] Nitrite Test strip Ql (U)Ord ered By: Jacob Talbot on 08-20-2022 Nitrite Ql (U) Negative Negative [facility] No Panel InformationOrdered By: Jeana Martini on 08-20-2022 Bedside Glucose #2 Comment Cleaned meter [facility] No Panel InformationOrdered By: Jacob Talbot on 08-20-2022 Pharmacy Creatinine Clearance (Chem 91.29 [facility] Nucleated erythrocytes [Pres ence] in Blood by Automated countOrdered By: Jacob Talbot on 08-20-2022 Nucleated RBC Auto Ql (Bld) 0.0 /100{WBC} 0-0.5 [facility] Opiates [Presence] in Urine by Screen methodOrdered By: Jacob Talbot on 08-20-2022 Opiates Screen Ql (U) Negative Negative Fir [facility] Partial Thromboplastin Timeo n 08-20-2022 aPTT Coag (Bld) [Time] 62.3 s High 25.1-36.5 [facility] Comment on above: Result Comment: PERF ORMED BY: [facility] [address] [place] [address] PATHOLOGIST MEDICAL BILLING REPRESENTATIVE JACIEL BEASLEY M.D. Performed By: #### C UBLD #### [facility] [address] Phencyclidine Screen Ql (U)O rdered By: Jacob Talbot on 08-20-2022 Phencyclidine Ql (U) Negative Negative [facility] Phosphoruson 08-20-2022 Phosphate [Mass/Vol] 3.1 mg/dL Low 3.7-7.2 [facility] Comment on above: Order Comment: Comme nt Add on to an already drawn sample Result Comment: PERF ORMED BY: [place] [address] PATHOLOGIST MEDICAL BILLING REPRESENTATIVE JACIEL BEASLEY M.D. Performed By: #### U RDS, ADDONUAPLUS #### [facility] [address] Platelet mean volume Auto (B ld) [Entitic vol]Ordered By: Jacob Talbot on 08-20-2022 Platelet mean volume (Bld) [Entitic vol] 6.9 fL 6.3-10.7 [facility] Platelet poor plasma interna tional normalized ratio (INR) by coagulation assay (relatOrdered By: Jacob Talbot on 08-20-2022 INR Coag (PPP) [Relative time] 1.1 {INR} [facility] Comment on above: INR Therapeutic Rang e A) Pre- and Peroperative OAT started two weeks before surgery. NOT HIP SURGERY: 1.5 - 2.5 HIP SURGERY: 2 - 3B) Primary and secondary prevention of venous THROMBOSIS: 2 - 3C) Active venous thrombosis, pulmonary embolismand prevention of recurrent venous thrombosis: 2 - 3D) Prevention of arterial thromboembolismincluding patients with mechanical heart valves: 3 - 4.5 Platelets Auto (Bld) [#/Vol] Ordered By: Jacob Talbot on 08-20-2022 Platelets (Bld) [#/Vol] 326 10*3/uL 150-450 [facility] Potassium [Moles/volume] in Serum or PlasmaOrdered By: Jacob Talbot on 08-20-2022 Potassium [Moles/Vol] 3.3 mmol/L 3.5-5.1 [facility] Protein Auto test strip (U) [Mass/Vol]Ordered By: Jacob Talbot on 08-20-2022 Protein (U) [Mass/Vol] 100 mg/dL Negative [facility] Protein [Mass/volume] in Ser um or PlasmaOrdered By: Jacob Talbot on 08-20-2022 Protein [Mass/Vol] 6.4 g/dL 6.4-8.9 [facility] Prothrombin Time INRon 08-20 INR Coag (PPP) [Relative time] 1.1 {INR} Normal [facility] Comment on above: Result Comment: INR Therapeutic Range A) Pre- and Peroperative OAT started two weeks before surgery. NOT HIP SURGERY: 1.5 - 2.5 HIP SURGERY: 2 - 3 B) Primary and secondary prevention of venous THROMBOSIS: 2 - 3 C) Active venous thrombosis, pulmonary embolism and prevention of recurrent venous thrombosis: 2 - 3 D) Prevention of arterial thromboembolism including patients with mechanical heart valves: 3 - 4.5 Performed By: #### C UBLD #### [facility] [address] PT Coag (PPP) [Time] 12.2 s Normal 9.0-12.9 [facility] Comment on above: Performed By: #### C UBLD #### [facility] [address] [place] [address] RBC Auto (Bld) [#/Vol]Ordere d By: Jacob Talbot on 08-20-2022 RBC (Bld) [#/Vol] 3.77 10*6/uL 3.60-5.00 [facility] Serum or plasma albumin/glob ulin mass ratioOrdered By: Jacob Talbot on 08-20-2022 Albumin/Globulin [Mass ratio] 1.3 {ratio} [facility] Serum or plasma anion gap de terminationOrdered By: Jacob Talbot on 08-20-2022 Anion gap [Moles/Vol] 11.3 mmol/L 6.0-15.0 [facility] Sodium [Moles/volume] in Ser um or PlasmaOrdered By: Jacob Talbot on 08-20-2022 Sodium [Moles/Vol] 141 mmol/L 136-145 [facility] Specific gravity Auto test s trip (U) [Rel density]Ordered By: Jacob Talbot on 08-20-2022 Specific gravity (U) [Rel density] 1.017 1.001-1.030 [facility] Squamous epithelial cells de tection in urine sediment by light microscopyOrdered By: Jacob Talbot on 08-20-2022 Epithelial cells.squamous LM Ql (Urine sed) 3-4 [HPF] 0-2 [facility] Troponin I High Sensitivityo n 08-20-2022 Troponin I High Sensitivity 8.2 pg/mL Normal 0.0-15.0 [facility] Comment on above: Result Comment: PERF ORMED BY: [place] [address] PATHOLOGIST MEDICAL BILLING REPRESENTATIVE JACIEL BEASLEY M.D. Performed By: #### C UBLD #### [address] Troponin I.cardiac [Mass/vol ume] in Serum or Plasma by Detection limit <= 0.01 ng/Ordered By: Jacob Talbot on 08-20-2022 Troponin I.cardiac DL <= 0.01 ng/mL [Mass/Vol] 8.2 pg/mL 0.0-15.0 [facility] US arterial pvr rest Lydia US arterial pvr rest LE [place] [address] Ultrasound Report Signed Patient: Addie Jean Baptiste MR#: [id number] 1 : 1975 Acct:[id number] Age/Sex: 47 / F ADM Date: 08/20/22 Loc: Room: [address] [place] [address] Type: ADM IN Attending Dr: Jeana Martini MD Ordering Provider: Jeana Martini MD Date of Service: 08/20/22 US/US arterial pvr rest LE: PVD Copies to: Jeana Martini MD LOWER EXTREMITY SEGMENTAL ARTERIAL DOPSCAN (PVR) INDICATION: Left great toe open wound PROCEDURE: Right arm blood pressure is 103mm/hg, Pressures throughout the right leg are 220mm/hg low thigh, 131mm/hg at the calf, cno at the ankle using the posterior tibial artery, and cno at the ankle using the dorsalis pedis artery with ankle-brachial index of cno . Pressures throughout the left leg are 233mm/hg low thigh, cno at the calf and cno at the ankle using the posterior tibial artery, and 240mm/hg at the ankle using the dorsalis pedis artery with ankle-brachial index of 2.33 . Wave forms by plethysmography are biphasic in the right lower extremity and monophasic in left lower extremity. 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 Therefore the GRISELDA is falsely elevated and unreliable. However, based on waveform analysis the patient has mild to moderate disease in the right lower extremity and moderate to severe disease in the left lower extremity. Vascular surgery consultation is indicated. Impression dictated by: Shameka Romero MD08/20/2022 4:55 PM Dictation Location: [place] [address] Tech: Karen Rhodes Transcribed By: MONAE 08/20/22 1655 Dictated By: Shameka Romero MD 08/20/22 1341 Signed By: 08/20/22 1655 Normal [facility] Urea nitrogen [Mass/volume] in Serum or PlasmaOrdered By: Jacob Talbot on 08-20-2022 Urea nitrogen [Mass/Vol] 15 mg/dL 7-25 [facility] Urine bacteria detection by automated methodOrdered By: Jacob Talbot on 08-20-2022 Bacteria Auto Ql (U) 1+ None Seen [facility] Urine clarity by refractomet ry automatedOrdered By: Jacob Talbot on 08-20-2022 Clarity Refractometry automated (U) Clear Clear [facility] Urine glucose measurement by automated test strip (mass/volume)Ordered By: Jacob Talbot on 08-20-2022 Glucose Auto test strip (U) [Mass/Vol] >=1000 mg/dL Normal [facility] Urine hemoglobin detection b y automated test stripOrdered By: Jacob Talbot on 08-20-2022 Hemoglobin Auto test strip Ql (U) Trace Negative [facility] Urine leukocyte esterase det ection by automated test stripOrdered By: Jacob Talbot on 08-20-2022 Leukocyte esterase Auto test strip Ql (U) Negative Negative [facility] Urobilinogen Auto test strip (U) [Mass/Vol]Ordered By: Jacob Talbot on 08-20-2022 Urobilinogen (U) [Mass/Vol] Normal mg/dL Normal [facility] Vitamin D 25 Hydroxy Totalon 08-20-2022 Vitamin D 25 Hydroxy Total < 7.0 Low 30-100 [facility] Comment on above: Result Comment: KASSY MIN D STATUS 25([place])VITAMIN D RANGE (ng/mL) Deficient <20 Insufficient 20 to <30 Sufficient 30 to 100 Reference: Hina Brewer, Tran THIBODEAUX, et al. Evaluation,treatment, and prevention of vitamin D deficiency; an Endocrine Society clinical practice guideline. JCEM. 2010; 96(7):191-. PERFORMED BY: [place] [address] PATHOLOGIST MEDICAL BILLING REPRESENTATIVE JACIEL BEASLEY M.D. Performed By: #### C UBLD #### [address] Vitamin D+Metabolites [Mass/ volume] in Serum or PlasmaOrdered By: Ezekiel Mathew on 08-20-2022 Vitamin D+Metabolites [Mass/Vol] < 7.0 ng/mL 30-100 [facility] Comment on above: VITAMIN D STATUS 25( [place])VITAMIN D RANGE (ng/mL) Deficient <20 Insufficient 20 to <30Sufficient 30 to 100Reference: Hina Brewer, Tran THIBODEAUX, et al. Evaluation,treatment, and prevention of vitamin D deficiency; an Endocrine Society clinical practice guideline. JCEM. 2010; 96(7):1911-. WBC Auto (Bld) [#/Vol]Ordere d By: Jacob Talbot on 08-20-2022 WBC (Bld) [#/Vol] 8.5 10*3/uL 3.8-11.6 [facility] XR foot LT min 3V*on 023 XR foot LT min 3V* [facility] [place] [address] [place] [address] XRay Report Signed Patient: Addie Jean Baptiste MR#: [id number] 1 : 1975 Acct:[id number] Age/Sex: 47 / F ADM Date: 08/20/22 Loc: Room: [address] [place] [address] Type: ADM INOo Attending Dr: Jeana Martini MD Copies to: DO Jeana Torres MD Ordering Provider: Jacob Talbot DO Date of Service: 08/19/22 XR/XR foot LT min 3V*: Extremity Injury, Lower ([id number]) XR/XR chest 1V portable: Extremity Injury, Lower CLINICAL DATA: Open sore at the posterior medial left first toe. PORTABLE AP ERECT CHEST 0005 hours COMPARISON: 09/22/2019 Assessment is slightly limited by large body habitus and shallow inspiration. There is a pacemaker on the left and an Cjqxad-j-Mygh catheter on the right. No definite consolidation, sizable effusion or pneumothorax is seen. The heart is within normal limits for size. The bony structures are intact. XR/XR chest 1V portable IMPRESSION: NO ACUTE FINDINGS. LEFT FOOT - 3 views COMPARISON: None AP, lateral and oblique views were obtained. There is no evidence of fracture or dislocation. No obvious bony destruction is seen. There is a plate along the distal fibular shaft. Mild distal dorsal soft tissue swelling is seen. IMPRESSION: NO ACUTE PLAIN FILM FINDINGS. Impression dictated by: Hayde Byrne M.D.08/20/2022 8:33 AM Dictation Location: [place] [address] Transcribed By: [facility] 08/20/22 0833 Dictated By: Hayde Byrne MD 08/20/2229 Signed By: 08/20/2233 Normal [facility] pH Auto test strip (U)Ordere d By: Jacob Talbot on 08-20-2022 pH (U) 6.5 [pH] 5.0-9.0 [facility] CHEMISTRYOrdered By: SYSTEM SYSTEM on 08-19-2022 Albumin [Mass/Vol] 3.6 g/dL Normal 3.3 - 5.0 gm/dL [facility] Albumin/Globulin [Mass ratio] 1.1 {ratio} Normal 1.1 - 2.2 [facility] ALP [Catalytic activity/Vol] 87 [iU]/d Normal 21 - 98 Int._Unit/L [facility] ALT No additional P-5'-P [Catalytic activity/Vol] 11 [iU]/d Normal 6 - 46 Int._Unit/L [facility] Anion gap [Moles/Vol] 10 mmol/L Normal 6 - 16 mEq/L [facility] AST [Catalytic activity/Vol] 16 [iU]/d Normal 5 - 43 Int._Unit/L [facility] Bilirubin [Mass/Vol] 0.3 mg/dL Normal 0.0 - 1 .1 mg/dL [facility] Calcium [Mass/Vol] 9.0 mg/dL Normal 8.9 - 11. 1 mg/dL [facility] Chloride [Moles/Vol] 102 mmol/L Normal 101 - 1 11 mmol/L [facility] CO2 [Moles/Vol] 27 mmol/L Normal 21 - 31 mmol/L [facility] Creatinine [Mass/Vol] 0.9 mg/dL Normal 0.5 - 1.3 mg/dL [facility] CRP [Mass/Vol] 2.0 mg/dL High <=1.9mg/dL [facility] ol GFR/1.73 sq M.predicted among blacks MDRD (S/P/Bld) [Vol rate/Area] mL/min/1.73 m2 Normal >=59mL/min/ 1.73 m2 [facility] Chem S GFR/1.73 sq M.predicted among non-blacks MDRD (S/P/Bld) [Vol rate/Area] mL/min/1.73 m2 Normal >=59mL/min/ 1.73 m2 [facility] Chem S Globulin (S) [Mass/Vol] 3.3 g/dL Normal 1.4 - 4.0 gm/dL [facility] Glucose [Mass/Vol] 204 mg/dL High 55 - 199 mg/dL [facility] Lactate [Mass/Vol] 1.2 mmol/L Normal 0.5 - 2.2 mmol/L [facility] Magnesium [Mass/Vol] 1.3 mg/dL Normal 1.3 - 2 .4 mg/dL [facility] Potassium [Moles/Vol] 3.1 mmol/L Low 3.5 - 5.3 mmol/L [facility] Protein [Mass/Vol] 6.9 g/dL Normal 6.0 - 7.8 gm/dL [facility] Sodium [Moles/Vol] 136 mmol/L Normal 135 - 145 mmol/L [facility] Troponin I.cardiac [Mass/Vol] 6.60 pg/mL Low 10.10 - 27.10 pg/mL [facility] Urea nitrogen [Mass/Vol] 17 mg/dL Normal 5 - 21 mg/dL [facility] Urea nitrogen/Creatinine [Mass ratio] 19 mg/mg Normal 10 - 20 [facility] CHEMISTRYOrdered By: Shannen shipley on 08-19-2022 Natriuretic peptide B (Bld) [Mass/Vol] 47 pg/mL Normal 5 - 80 pg/mL [facility] HemeManSS COAGULATIONOrdered By: Gigi Morrison on 08-19-2022 aPTT Coag (PPP) [Time] 30.5 s Normal 25.1 - 36.5 second(s) [facility] Auto Coag INR Coag (PPP) [Relative time] 1.1 {INR} Invalid Interpretation Code [facility] Auto Coag PT Coag (PPP) [Time] 12.1 s Normal 9.4 - 1 2.5 second(s) [facility] Auto Coag HEMATOLOGYOrdered By: SYSTEM SYSTEM on 08-19-2022 Basophils/100 WBC (Bld) 0.7 % Normal 0.0 - 2.0 % [facility] HemeAutoSS Basophils/Leukocytes Auto (Bld) [Pure # fraction] 0.1 E9/L Normal 0.0 - 0.2 E9/L [facility]eAutoSS Eosinophils/100 WBC (Bld) 0.7 % Normal 0.0 - 8.0 % [facility] HemeAutoSS Eosinophils/Leukocyte s Auto (Bld) [Pure # fraction] 0.1 E9/L Normal 0.0 - 0.5 E9/L [facility] HemeAutoSS Lymphocytes/100 WBC (Bld) 18.0 % Normal 14.0 - 50.0 % [facility] HemeAutoSS Lymphocytes/Leukocyte s Auto (Bld) [Pure # fraction] 1.6 E9/L Normal 1.0 - 4.0 E9/L [facility] HemeAutoSS Monocytes/100 WBC (Bld) 6.7 % Normal 4.0 - 14.0 % [facility] HemeAutoSS Monocytes/Leukocytes Auto (Bld) [Pure # fraction] 0.6 E9/L Normal 0.2 - 1.0 E9/L [facility]eAutoSS Neutrophils/100 WBC (Bld) 73.9 % Normal 36.0 - 75.0 % [facility] HemeAutoSS Neutrophils/Leukocyte s Auto (Bld) [Pure # fraction] 6.8 E9/L Normal 2.0 - 7.5 E9/L [facility] HemeAutoSS HEMATOLOGYOrdered By: Shannen Sosa on 08-19-2022 Erythrocyte distribution width (RBC) [Ratio] 14.1 % Normal 10.9 - 14.2 % [facility]eAutoSS Hematocrit (Bld) [Volume fraction] 36.2 % Normal 34.0 - 46.0 % [facility]eAuto[facility] Hemoglobin (Bld) [Mass/Vol] 12.5 g/dL Normal 12.0 - 16.0 gm/dL [facility]eAutoSS MCH (RBC) [Entitic mass] 31.1 pg Normal 27.0 - 34.0 pg [facility]Auto[facility] MCHC (RBC) [Mass/Vol] 34.4 g/dL Normal 31.4 - 36.0 gm/dL [facility]eAuto[facility] MCV (RBC) [Entitic vol] 90.4 fL Normal 80.0 - 100.0 fL [facility]eAutoSS Platelet mean volume (Bld) [Entitic vol] 7.2 fL Normal 6.4 - 10.8 fL [facility]eAutoSS Platelets (Bld) [#/Vol] 333.0 E9/L Normal 150.0 - 500.0 E9/L [facility]eAutoSS RBC (Bld) [#/Vol] 4.0 E12/L Low 4.3 - 5.9 E12/L [facility] Sed Rate Automated 33 mm/h Normal 0 - 34 mm/hr [facility]eAuto[facility] WBC corrected for nucl RBC Auto (Bld) [#/Vol] 9.2 E9/L Normal 4.0 - 11.0 E9/L [facility] HemeAutoSS CBC AUTO DIFFon 08-06-2022 BASO # 0.0 103/ul Normal 0.0-0.1 [facility] Comment on above: Performed By: #### C BC ####[facility] [address] [place] [id number]. Devin Suresh Basophils/100 WBC (Bld) 0.5 % Normal 0.2-2.0 [facility] Comment on above: Performed By: #### C BC ####[facility] [address] [place] [id number]. Devin Suresh EO # 0.1 103/ul Normal 0.0-0.7 [facility] Comment on above: Performed By: #### C BC ####[facility] [address] [place], [place] [id number]. Devin Suresh Eosinophils/100 WBC (Bld) 1.6 % Normal 0.9-7.0 [facility] Comment on above: Performed By: #### C BC ####[facility] [address] [place], [place] [address]Dr. Devin Suresh Erythrocyte distribution width (RBC) [Ratio] 13.3 % Normal 11.0-15.0 [facility] Comment on above: Performed By: #### C BC ####[facility] [address] [place] [id number]. Devin Suresh Hematocrit (Bld) [Volume fraction] 30.1 % Critically low 36.0-48.0 [facility] Comment on above: Performed By: #### C BC ####[facility] [address] [place] [id number]. Devin Suresh Hemoglobin (Bld) [Mass/Vol] 10.6 g/dL Critically low 12.0-16.0 [facility] Comment on above: Performed By: #### C BC ####[facility] [address] [place] [id number]. Devin Suresh IG # 0.04 10e3/ul Critically high 0.00-0.03 [facility] Comment on above: Performed By: #### C BC ####[facility] [address] [place], [place] [id number]. Devin Suresh IG % 0.6 % Critically high 0.0-0.5 [facility] Comment on above: Performed By: #### C BC ####[facility] [address] [place] [id number]. Devin Suresh LYMPH # 2.3 103/ul Normal 1.2-3.8 [facility] Comment on above: Performed By: #### C BC ####[facility] [address] [place] [phone]. Devin Suresh Lymphocytes/100 WBC (Bld) 36.0 % Normal 20.5-60.0 [facility] Comment on above: Performed By: #### C BC ####[facility] [address] [place] [phone]. Devin Kerwin MANUAL DIFF REQ NO Normal [facility] Comment on above: Performed By: #### C BC ####[facility] [address] [place] [id number]. Devin Kerwin MCH (RBC) [Entitic mass] 31.1 pg Normal 26.7-34.0 [facility] Comment on above: Performed By: #### C BC ####[facility] [address] [place] [id number]. Devin Suresh MCHC (RBC) [Mass/Vol] 35.2 g/dL Normal 29.9-35.2 [facility] Comment on above: Performed By: #### C BC ####[facility] [address] [place] [phone]. Devin Kerwin MCV (RBC) [Entitic vol] 88.3 fL Normal 81.0-99.0 [facility] Comment on above: Performed By: #### C BC ####[facility] [address] [place] [phone]. Devin Suresh MONO # 0.4 103/ul Normal 0.3-0.8 [facility] Comment on above: Performed By: #### C BC ####[facility] [address] [place] [phone]. Devin Kerwin Monocytes/100 WBC (Bld) 6.1 % Normal 1.7-12.0 [facility] Comment on above: Performed By: #### C BC ####[facility] [address] [place] [phone]. Devin Suresh NEUT # 3.5 103/ul Normal 1.4-6.5 [facility] Comment on above: Performed By: #### C BC ####[facility] [address] [place], [place] [address]Op. Devin Suresh Neutrophils/100 WBC (Bld) 55.2 % Normal 43.0-75.0 [facility] Comment on above: Performed By: #### C BC ####[facility] [address] [place] [phone]. Devin Suresh Platelet mean volume (Bld) [Entitic vol] 8.3 fL Critically low 9.5-13.5 [facility] Comment on above: Performed By: #### C BC ####[facility] [address] [place] [phone]. Devin Kerwin PLT 244 103/ul Normal 150-450 [facility] Comment on above: Performed By: #### C BC ####[facility] [address] [place] [id number]. Devin Kerwin RBC 3.41 106/ul Critically low 4.20-5.40 [facility] Comment on above: Performed By: #### C BC ####[facility] Rmaafbpwqu4[address] [place] [phone]. Devin Suresh WBC 6.3 103/ul Normal 4.0-11.0 [facility] Comment on above: Performed By: #### C BC ####[facility] Snogfxlkud13[address] [place] [phone]. Devin Kerwin POINT OF CARE GLUCOSEon 07-23 Glucose [Mass/Vol] 209 mg/dL Critically high 74-106 [facility] Comment on above: Performed By: #### P OCGLUC ####[facility] Yltypifbnj5837 [place] [phone] Suresh PROF 14(COMP METB)on 08-06- 023 Albumin [Mass/Vol] 3.2 g/dL Critically low 3.4-5.0 [facility] Comment on above: Performed By: #### C MP ####[facility] O[address]aqwpxua[address] [place] [address]Dr. Devin Suresh Albumin/Globulin [Mass ratio] 1.1 {ratio} Normal [facility] Comment on above: Performed By: #### C MP ####[facility] Leyeaygpip[address] [place] [address]Dr. Devin Suresh ALP [Catalytic activity/Vol] 85 U/L Normal 46-116 [facility] Comment on above: Performed By: #### C MP ####[facility] Igrpxuapzx[address] [place], [place] [address]Dr. Devin Suresh ALT [Catalytic activity/Vol] 14 U/L Normal 14-59 [facility] Comment on above: Performed By: #### C MP ####[facility] Mzuopeazqa[address] [place], [place] [address]Dr. Devin Suresh Anion gap [Moles/Vol] 12.7 mmol/L Normal [facility] [place] Comment on above: Performed By: #### C MP ####[facility] Janmajbilw778[address] [place], [place] [address]Dr. Devin Suresh AST [Catalytic activity/Vol] 14 U/L Critically low 15-37 [facility] Comment on above: Performed By: #### C MP ####[facility] Erbaimasmr[address] [place], [place] [address]Dr. Devin Suresh Bilirubin [Mass/Vol] 0.4 mg/dL Normal 0.2-1.0 [facility] Comment on above: Performed By: #### C MP ####[facility] Gnntuwyzjj65[address] [place], [place] [address]Dr. Devin Suresh Calcium [Mass/Vol] 7.9 mg/dL Critically low 8.5-10.1 [facility] [place] Comment on above: Performed By: #### C MP ####[facility] Jlciifcnpo432[address] [place], [place] [address]Dr. Devin Suresh Chloride [Moles/Vol] 106 mmol/L Normal 98-107 [facility] Comment on above: Performed By: #### C MP ####[facility] Wkhijmzkpt2598 [place] [address]Dr. Devin Suresh CO2 [Moles/Vol] 23.5 mmol/L Normal 21.0-32.0 [facility] Comment on above: Performed By: #### C MP ####[facility] Usttdvgjbh6743 [place] [address]Dr. Devin Suresh Creatinine [Mass/Vol] 0.88 mg/dL Normal 0.55-1.02 [facility] Comment on above: Performed By: #### C MP ####[facility] Gjolmxuwxf4[address] [place] [address]Dr. Devin Suresh EGFR-AF [place] >60 Normal >=60 [facility] Comment on above: Performed By: #### C MP ####[facility] Ibexsveiio057[address] [place], [place] [address]Dr. Devin Suresh EGFR-NON AF [place] >60 Normal >=60 [facility] Comment on above: Performed By: #### C MP ####[facility] Stbzvvdfdh204[address] [place], [place] [address]Dr. Devin Suresh Globulin (S) [Mass/Vol] 2.8 g/dL Normal [facility] Comment on above: Performed By: #### C MP ####[facility] Udifmqexsd410[address] [place], [place] [address]Dr. Devin Suresh Glucose [Mass/Vol] 165 mg/dL Critically high 74-106 [facility] Comment on above: Performed By: #### C MP ####[facility] Bedgzlwzen619[address] [place], [place] [address]Dr. Devin Suresh Potassium [Moles/Vol] 3.2 mmol/L Critically low 3.5-5.1 [facility] Comment on above: Performed By: #### C MP ####[facility] Sqgegltkun[address] [place], [place] [address]Dr. Devin Suresh Protein [Mass/Vol] 6.0 g/dL Critically low 6.4-8.2 [facility] [place] Comment on above: Performed By: #### C MP ####[facility] Bsrggztwhr48[address] [place] [phone]. Devin Suresh Sodium [Moles/Vol] 139 mmol/L Normal 136-145 [facility] Comment on above: Performed By: #### C MP ####[facility] Aiyvexttlh237[address] [place], [place] [address]Dr. Devin Suresh Urea nitrogen [Mass/Vol] 5.0 mg/dL Critically low 7.0-18.0 [facility] Comment on above: Performed By: #### C MP ####[facility] Oalbripvit568[address] [place], [place] [address]Dr. Devin Suresh Urea nitrogen/Creatinine [Mass ratio] 5.6 mg/mg Normal [facility] Comment on above: Performed By: #### C MP ####[facility] Fxcelgintq78[address] [place], [place] [address]Dr. Devin Suresh CBC AUTO DIFFon 08-05-2022 BASO # 0.0 103/ul Normal 0.0-0.1 [facility] Comment on above: Performed By: #### C BC ####[facility] Kyhwvpaxyj922[address] [place], [place] [address]Dr. Devin Suresh Basophils/100 WBC (Bld) 0.3 % Normal 0.2-2.0 [facility] Comment on above: Performed By: #### C BC ####[facility] Hzuquodhmx953[address] [place], [place] [address]Dr. Devin Suresh EO # 0.1 103/ul Normal 0.0-0.7 [facility] Comment on above: Performed By: #### C BC ####[facility] Qbtxztemfu918[address] [place], [place] [address]Dr. Devin Suresh Eosinophils/100 WBC (Bld) 1.7 % Normal 0.9-7.0 [facility] Comment on above: Performed By: #### C BC ####[facility] Mksmbssbxu7219[address] [place], [place] [address]Dr. Devin Suresh Erythrocyte distribution width (RBC) [Ratio] 13.4 % Normal 11.0-15.0 [facility] Comment on above: Performed By: #### C BC ####[facility] Sazulbfliv25[address] [place] [address]Dr. Devin Suresh Hematocrit (Bld) [Volume fraction] 28.6 % Critically low 36.0-48.0 [facility] Comment on above: Performed By: #### C BC ####[facility] Zpehrrkdij98[address] [place] [address]Dr. Devin Suresh Hemoglobin (Bld) [Mass/Vol] 9.8 g/dL Critically low 12.0-16.0 [facility] Comment on above: Performed By: #### C BC ####[facility] Cmlvsvfbbx257[address] [place], [place] [address]Dr. Devin Suresh IG # 0.04 10e3/ul Critically high 0.00-0.03 [facility] Comment on above: Performed By: #### C BC ####[facility] Rzptonjeks[address] [place], [place] [address]Dr. Devin Suresh IG % 0.7 % Critically high 0.0-0.5 [facility] Comment on above: Performed By: #### C BC ####[facility] Jdokpulgdm10[address] [place], [place] [address]Dr. Tishemily Suresh LYMPH # 1.8 103/ul Normal 1.2-3.8 [facility] Comment on above: Performed By: #### C BC ####[facility] Ptnheqwffm6512[address] [place], [place] [address]Dr. Devin Suresh Lymphocytes/100 WBC (Bld) 30.9 % Normal 20.5-60.0 [facility] Comment on above: Performed By: #### C BC ####[facility] Vhjwnrgsvt90360[address] [place], [place] [address]Dr. Tishemily Suresh MANUAL DIFF REQ NO Normal [facility] Comment on above: Performed By: #### C BC ####[facility] Lhitravakp325[address] [place], [place] [address]Dr. Devin Suresh MCH (RBC) [Entitic mass] 30.0 pg Normal 26.7-34.0 [facility] Comment on above: Performed By: #### C BC ####[facility] Xromrlrafj45[address] [place] [phone]. Tishemily Suresh MCHC (RBC) [Mass/Vol] 34.3 g/dL Normal 29.9-35.2 [facility] Comment on above: Performed By: #### C BC ####[facility] Hoereuciwq4[address] [place] [phone]. Devin Suresh MCV (RBC) [Entitic vol] 87.5 fL Normal 81.0-99.0 [facility] Comment on above: Performed By: #### C BC ####[facility] Zwdzfhnaog16[address] [place], [place] [address]Dr. Devin Suresh MONO # 0.3 103/ul Normal 0.3-0.8 [facility] Comment on above: Performed By: #### C BC ####[facility] Ofbkxbrdhj227[address] [place], [place] [address]Dr. Devin Suresh Monocytes/100 WBC (Bld) 4.3 % Normal 1.7-12.0 [facility] Comment on above: Performed By: #### C BC ####[facility] Edyisspipj715[address] [place], [place] [address]Dr. Devin Suresh NEUT # 3.6 103/ul Normal 1.4-6.5 [facility] Comment on above: Performed By: #### C BC ####[facility] Zrccvlbhjn740[address] [place], [place] [address]Dr. Devin Suresh Neutrophils/100 WBC (Bld) 62.1 % Normal 43.0-75.0 [facility] Comment on above: Performed By: #### C BC ####[facility] Vogsnmtzin40[address] [place], [place] [address]Dr. Devin Suresh Platelet mean volume (Bld) [Entitic vol] 8.5 fL Critically low 9.5-13.5 [facility] Comment on above: Performed By: #### C BC ####[facility] Mmuqxvuvqf9824[address] [place], [place] [address]Dr. Devin Suresh PLT 211 103/ul Normal 150-450 [facility] Comment on above: Performed By: #### C BC ####[facility] Jtpjhpaqpp96[address] [place] [phone]. Devin Suresh RBC 3.27 106/ul Critically low 4.20-5.40 [facility] Comment on above: Performed By: #### C BC ####[facility] Dfbdenjelv1802 [place] [phone]. Devin Suresh WBC 5.9 103/ul Normal 4.0-11.0 [facility] Comment on above: Performed By: #### C BC ####[facility] Lxvovdqqpc6386 [place] [address]Dr. Devin Suresh CBC W MANUAL DIFFon 08-06-19 23 ANISOCYTOSIS 2+ Normal [facility] Comment on above: Performed By: #### C BCMAN ####[facility] Brkeallbqe95[address] [place] [address]Dr. Devin Suresh ATYPICAL LYMPH # Normal [facility] Comment on above: Performed By: #### C BCMAN ####[facility] Yhpssachdt[address] [place], [place] [address]Dr. Devin Suresh ATYPICAL LYMPH % Normal [facility] Comment on above: Performed By: #### C BCMAN ####[facility] Yrzpzxcvya9[address] [place], [place] [address]Dr. Devin Suresh BAND # 0.1 103/ul Normal 0.0-0.3 [facility] Comment on above: Performed By: #### C BCMAN ####[facility] Tprayndglb[address] [place], [place] [address]Dr. Devin Suresh BAND % 1 % Normal 0-5 [facility] Comment on above: Performed By: #### C BCMAN ####[facility] Epmfflqnkf0218[address] [place], [place] [address]Dr. Devin Suresh BASOM # 0.10 103/ul Normal 0.00-0.10 [facility] Comment on above: Performed By: #### C BCMAN ####[facility] Wwoaoniezt324[address] [place], [place] [address]Dr. Devin Suresh BASOM % 2.0 % Normal 0.2-2.0 [facility] Comment on above: Performed By: #### C BCMARLEE ####[facility] Lcrfegvcip6[address] [place] [phone]. Devin Suresh BLAST # Normal [facility] Comment on above: Performed By: #### C ELIE ####[facility] Zdglgbjsth7987 [place], [place] [address]Hj. Devin Suresh BLAST % Normal [facility] Comment on above: Performed By: #### C ELIE ####[facility] Iymncpgdta1197 [place] [address]Dr. Devin Suresh CORRECTED WBC Normal 4.0-11.0 [facility] Comment on above: Performed By: #### C ELIE ####[facility] Bfdkxyrmvp9196 [place] [address]Dr. Devin Suresh EOS # 0.40 103/ul Normal 0.00-0.70 [facility] Comment on above: Performed By: #### C ELIE ####[facility] Xzqlwqjuft13[address] [place], [place] [address]Dr. Devin Suresh EOS% 8.0 % Critically high 0.9-7.0 [facility] Comment on above: Performed By: #### C ELIE ####[facility] Opjgneuuyi9[address] [place], [place] [address]Dr. Devin Suresh HCT 29.5 % Critically low 36.0-48.0 [facility] Comment on above: Performed By: #### C ELIE ####[facility] Fbtjnplmtx4143 [place] [phone]. Devin Suresh HGB 10.0 g/dl Critically low 12.0-16.0 [facility] Comment on above: Performed By: #### C ELIE ####[facility] Petcgjlspg[address] [place], [place] [address]Dr. Devin Suresh LYMPHM # 0.35 103/ul Critically low 1.20-3.80 [facility] Comment on above: Performed By: #### C ELIE ####[facility] Terckdtvig056[address] [place], [place] [address]Dr. Devin Suresh LYMPHM% 7.0 % Critically low 20.5-60.0 [facility] Comment on above: Performed By: #### C ELIE ####[facility] Jjuzfxxhzc5455 [place] [phone]. Devin Suresh MCH 30.0 pg Normal 26.7-34.0 [facility] Comment on above: Performed By: #### C ELIE ####[facility] Ghdtrksoiv4643 [place] [address]Dr. Devin Suresh MCHC 33.9 g/dl Normal 29.9-35.2 [facility] Comment on above: Performed By: #### C ELIE ####[facility] Jxpgbpefve4016 [place] [address]Dr. Devin Suresh MCV 88.6 fL Normal 81.0-99.0 [facility] Comment on above: Performed By: #### C ELIE ####[facility] Loxdrflmle04[address] [place] [address]Dr. Devin Suresh METAMYELOCYTE # 0.1 103/ul Normal [facility] Comment on above: Performed By: #### C ELIE ####[facility] Knfyvhhjay7566 [place] [address]Dr. Devin Suresh METAMYELOCYTE % 2 % Normal [facility] Comment on above: Performed By: #### C ELIE ####[facility] Seddvsrjhr8056 [place] [address]Dr. Devin Suresh MONOM# 0.05 103/ul Critically low 0.30-0.80 [facility] Comment on above: Performed By: #### C ELIE ####[facility] Vrznwftnes7663 [place] [address]Dr. Devin Suresh MONOM% 1.0 % Critically low 1.7-12.0 [facility] Comment on above: Performed By: #### C ELIE ####[facility] Ijjwryyvmh8032 [place] [address]Dr. Devin Suresh MPV 8.5 fL Critically low 9.5-13.5 [facility] Comment on above: Performed By: #### C ELIE ####[facility] Kpvhzwxhis0690 [place] [phone]. Devin Suresh MYELOCYTE # Normal [facility] Comment on above: Performed By: #### C ELIE ####[facility] Mbxsnguhry7137 [place], [place] [address]Cr. Devin Suresh MYELOCYTE % Normal [facility] Comment on above: Performed By: #### C ELIE ####[facility] Ouwwbegwrq8581 [place] [phone]. Devin Suresh NRBC Normal [facility] Comment on above: Performed By: #### C ELIE ####[facility] Pzdkkzxusl5464 [place] [phone]. Dvein Suresh PLT 207 103/ul Normal 150-450 [facility] Comment on above: Performed By: #### C ELIE ####[facility] Rassuumwaf15[address] [place] [phone]. Devin Suresh POIKILOCYTOSIS 2+ Normal [facility] Comment on above: Performed By: #### C ELIE ####[facility] Usfbtyvfaj4535 [place] [phone]. Devin Suresh RBC 3.33 106/ul Critically low 4.20-5.40 [facility] Comment on above: Performed By: #### C ELIE ####[facility] Psijhzbxki1866 [place] [phone]. Devin Suresh RDW 13.3 % Normal 11.0-15.0 [facility] Comment on above: Performed By: #### C ELIE ####[facility] Akdymfvzod88[address] [place] [address]Dr. Devin Suresh SEG # 3.95 103/ul Normal 1.40-6.50 [facility] Comment on above: Performed By: #### C ELIE ####[facility] Zlmnydagdv1127 [place] [address]Dr. Devin Suresh SEG % 79.0 % Critically high 43.0-75.0 [facility] Comment on above: Performed By: #### C BCMAN ####[facility] Xivyvfrfxi2597 [place] [address]Dr. Devin Suresh WBC 5.0 103/ul Normal 4.0-11.0 [facility] Comment on above: Performed By: #### C BCMAN ####[facility] Cmbepjabnb4[address] [place] [address]Dr. Devin Kerwin ECHOCARDIO M/2D COMPLETEon 0 08-05-2022 ECHOCARDIO M/2D COMPLETE Normal [facility] POINT OF CARE GLUCOSEon 07-23 Glucose [Mass/Vol] 151 mg/dL Critically high 74-106 [facility] Comment on above: Performed By: #### P OCGLUC ####[facility] Fesxemitxn55[address] [place] [address]Dr. Devin Kerwin Glucose [Mass/Vol] 188 mg/dL Critically high 74-106 [facility] Comment on above: Performed By: #### P OCGLUC ####[facility] Bwezratkjj6105 [place] [address]Dr. Devin Suresh Glucose [Mass/Vol] 243 mg/dL Critically high 74-106 [facility] Comment on above: Performed By: #### P OCGLUC ####[facility] Lahyynehin6893 [place] [address]Dr. Devin Suresh Glucose [Mass/Vol] 259 mg/dL Critically high -106 [facility] Comment on above: Performed By: #### P OCGLUC ####[facility] Vlpxsbplkd0454 [place] [address]Dr. Devin Suresh PROF 14(COMP METB)on 023 Albumin [Mass/Vol] 3.1 g/dL Critically low 3.4-5.0 [facility] Comment on above: Performed By: #### C MP ####[facility] Asmtsmglam0175 [place] [address]Dr. Devin Suresh Albumin/Globulin [Mass ratio] 1.1 {ratio} Normal [facility] Comment on above: Performed By: #### C MP ####[facility] Yvvlhjfkuv8366 [place] [phone]. Devin Suresh ALP [Catalytic activity/Vol] 86 U/L Normal 46-116 [facility] Comment on above: Performed By: #### C MP ####[facility] Pgckgbyexa4947 [place] [address]Dr. Devin Suresh ALT [Catalytic activity/Vol] 12 U/L Critically low 14-59 [facility] Comment on above: Performed By: #### C MP ####[facility] Lxfrzqmnyl6045 [place] [address]Dr. Devin Suresh Anion gap [Moles/Vol] 13.2 mmol/L Normal [facility] Comment on above: Performed By: #### C MP ####[facility] Grqiiemogo6648 [place] [address]Dr. Devin Suresh AST [Catalytic activity/Vol] 13 U/L Critically low 15-37 [facility] Comment on above: Performed By: #### C MP ####[facility] Yoapxwxdpf[address] [place], [place] [address]Dr. Devin Suresh Bilirubin [Mass/Vol] 0.4 mg/dL Normal 0.2-1.0 [facility] Comment on above: Performed By: #### C MP ####[facility] Hucgqhbcof08[address] [place], [place] [address]Dr. Devin Suresh Calcium [Mass/Vol] 8.0 mg/dL Critically low 8.5-10.1 [facility] Comment on above: Performed By: #### C MP ####[facility] Nxhrbrlykc9012 [place] [address]Dr. Devin Suresh Chloride [Moles/Vol] 108 mmol/L Critically high 98-107 [facility] Comment on above: Performed By: #### C MP ####[facility] Xhulbnpdmz462[address] [place], [place] [address]Dr. Tishemily Suresh CO2 [Moles/Vol] 21.3 mmol/L Normal 21.0-32.0 [facility] Comment on above: Performed By: #### C MP ####[facility] Dqnjtblybl440[address] [place], [place] [address]Dr. Devin Kerwin Creatinine [Mass/Vol] 0.76 mg/dL Normal 0.55-1.02 [facility] Comment on above: Performed By: #### C MP ####[facility] Sezrqocpou5707 [place] [address]Dr. Devin Kerwin EGFR-AF [place] >60 Normal >=60 [facility] Comment on above: Performed By: #### C MP ####[facility] Lmwmnwxduy58[address] [place], [place] [address]Dr. Devin Kerwin EGFR-NON AF [place] >60 Normal >=60 [facility] Comment on above: Performed By: #### C MP ####[facility] Cqnuojncki5[address] [place], [place] [address]Dr. Devin Suresh Globulin (S) [Mass/Vol] 2.8 g/dL Normal [facility] Comment on above: Performed By: #### C MP ####[facility] Iokxjkngmh224[address] [place], [place] [address]Dr. Devin Suresh Glucose [Mass/Vol] 235 mg/dL Critically high 74-106 [facility] Comment on above: Performed By: #### C MP ####[facility] Luihtiwnhf768[address] [place], [place] [address]Dr. Devin Suresh Potassium [Moles/Vol] 3.5 mmol/L Normal 3.5-5.1 [facility] Comment on above: Performed By: #### C MP ####[facility] Aewtdtgowc054[address] [place], [place] [address]Dr. Devin Suresh Protein [Mass/Vol] 5.9 g/dL Critically low 6.4-8.2 [facility] [place] Comment on above: Performed By: #### C MP ####[facility] Dlcaiqspfo098[address] [place], [place] [address]Dr. Devin Suresh Sodium [Moles/Vol] 139 mmol/L Normal 136-145 [facility] Comment on above: Performed By: #### C MP ####[facility] Xqowoxraez345[address] [place], [place] [address]Dr. Devin Suresh Urea nitrogen [Mass/Vol] 4.0 mg/dL Critically low 7.0-18.0 [facility] Comment on above: Performed By: #### C MP ####[facility] Ihdwscudqy8095 [place] [address]Dr. Devin Suresh Urea nitrogen/Creatinine [Mass ratio] 5.3 mg/mg Normal [facility] Comment on above: Performed By: #### C MP ####[facility] Gwwzhtjghc8363 [place] [address]Dr. Devin Suresh TROPONIN, HIGH SENSITIVITYon 08-05-2022 HSTROP 5.5 pg/mL Normal 4.0-51.3 [facility] Comment on above: Result Comment: CUT- OFF POINTS HAVE BEEN ESTABLISHED BASED ON THE FOURTH UNIVERSAL DEFINITIONS OF MYOCARDIALINFARCTION. THE UPPER REFERENCE LIMIT (URL) OF TROPONIN, DEFINED THE 99TH PERCENTILE OFcTnI DISTRIBUTION IN A REFERENCE POPULATION, HAS BEEN CONFIRMED THE DECISION THRESHOLDFOR ND DIAGNOSIS. Performed By: #### H STROPN ####[facility] Faqmzaktpn067[address] [place], [place] [address]Dr. Devin Suresh HSTROP 7.5 pg/mL Normal 4.0-51.3 [facility] Comment on above: Result Comment: CUT- OFF POINTS HAVE BEEN ESTABLISHED BASED ON THE FOURTH UNIVERSAL DEFINITIONS OF MYOCARDIALINFARCTION. THE UPPER REFERENCE LIMIT (URL) OF TROPONIN, DEFINED THE 99TH PERCENTILE OFcTnI DISTRIBUTION IN A REFERENCE POPULATION, HAS BEEN CONFIRMED THE DECISION THRESHOLDFOR ND DIAGNOSIS. Performed By: #### H STROPN ####[facility] Jnwitnghhl198[address] [place], [place] [address]Dr. Devin Suresh HSTROP 6.9 pg/mL Normal 4.0-51.3 [facility] Comment on above: Result Comment: CUT- OFF POINTS HAVE BEEN ESTABLISHED BASED ON THE FOURTH UNIVERSAL DEFINITIONS OF MYOCARDIALINFARCTION. THE UPPER REFERENCE LIMIT (URL) OF TROPONIN, DEFINED THE 99TH PERCENTILE OFcTnI DISTRIBUTION IN A REFERENCE POPULATION, HAS BEEN CONFIRMED THE DECISION THRESHOLDFOR ND DIAGNOSIS. Performed By: #### H STROPN ####[facility] Vmcwwskluy5073 [place] [address]Dr. Devin Kerwin CBC AUTO DIFFon 08-04-2022 BASO # 0.0 103/ul Normal 0.0-0.1 [facility] Comment on above: Performed By: #### C BC ####[facility] Ksrjnjluxp[address] [place], [place] [address]Dr. Devin Suresh Basophils/100 WBC (Bld) 0.4 % Normal 0.2-2.0 [facility] Comment on above: Performed By: #### C BC ####[facility] Zyjbgyloib[address] [place], [place] [address]Dr. Devin Suresh EO # 0.1 103/ul Normal 0.0-0.7 [facility] Comment on above: Performed By: #### C BC ####[facility] Irvqvament046[address] [place], [place] [address]Dr. Devin Suresh Eosinophils/100 WBC (Bld) 2.3 % Normal 0.9-7.0 [facility] Comment on above: Performed By: #### C BC ####[facility] Nhkoxhgvdn[address] [place], [place] [address]Dr. Devin Suresh Erythrocyte distribution width (RBC) [Ratio] 13.8 % Normal 11.0-15.0 [facility] Comment on above: Performed By: #### C BC ####[facility] Qgdviygczm415[address] [place], [place] [address]Dr. Devin Suresh Hematocrit (Bld) [Volume fraction] 29.6 % Critically low 36.0-48.0 [facility] Comment on above: Performed By: #### C BC ####[facility] Ogpzpcolin197[address] [place], [place] [address]Dr. Devin Suresh Hemoglobin (Bld) [Mass/Vol] 10.0 g/dL Critically low 12.0-16.0 [facility] Comment on above: Performed By: #### C BC ####[facility] Qmsurbsoih397[address] [place], [place] [address]Dr. Devin Suresh IG # 0.02 10e3/ul Normal 0.00-0.03 [facility] Comment on above: Performed By: #### C BC ####[facility] [address]dxc[address] [place] [id number]. Devin Suresh IG % 0.4 % Normal 0.0-0.5 [facility] Comment on above: Performed By: #### C BC ####[facility] [address]zhrgso[address] [place] [address]Dr. Devin Suresh LYMPH # 2.4 103/ul Normal 1.2-3.8 [facility] Comment on above: Performed By: #### C BC ####[facility] Bkbzgdibgu17[address] [place] [address]Dr. Devin Suresh Lymphocytes/100 WBC (Bld) 46.2 % Normal 20.5-60.0 [facility] Comment on above: Performed By: #### C BC ####[facility] Kudvtgujyi377[address] [place], [place] [address]Dr. Devin Suresh MANUAL DIFF REQ NO Normal [facility] Comment on above: Performed By: #### C BC ####[facility] Feokottoof[address] [place] [address]Dr. Devin Kerwin MCH (RBC) [Entitic mass] 30.7 pg Normal 26.7-34.0 [facility] Comment on above: Performed By: #### C BC ####[facility] Caqoiubjei529[address] [place], [place] [address]Dr. Devin Kerwin MCHC (RBC) [Mass/Vol] 33.8 g/dL Normal 29.9-35.2 [facility] Comment on above: Performed By: #### C BC ####[facility] Zyemlzfuqw65[address] [place] [address]Dr. Devin Suresh MCV (RBC) [Entitic vol] 90.8 fL Normal 81.0-99.0 [facility] Comment on above: Performed By: #### C BC ####[facility] Mcykodayxp38[address] [place], [place] [address]Dr. Devin Suresh MONO # 0.4 103/ul Normal 0.3-0.8 [facility] Comment on above: Performed By: #### C BC ####[facility] Tfpbacuuzn364[address] [place], [place] [address]Dr. Devin Suresh Monocytes/100 WBC (Bld) 7.6 % Normal 1.7-12.0 [facility] Comment on above: Performed By: #### C BC ####[facility] Xbkranpdxl5219 [place] [address]Dr. Devin Suresh NEUT # 2.2 103/ul Normal 1.4-6.5 [facility] Comment on above: Performed By: #### C BC ####[facility] Gvujtqejpf84[address] [place] [address]Dr. Devin Suresh Neutrophils/100 WBC (Bld) 43.1 % Normal 43.0-75.0 [facility] Comment on above: Performed By: #### C BC ####[facility] Lwhkmhvmwy1567 [place] [address]Dr. Devin Suresh Platelet mean volume (Bld) [Entitic vol] 8.7 fL Critically low 9.5-13.5 [facility] Comment on above: Performed By: #### C BC ####[facility] Pdwqhqcahx3954 [place] [address]Dr. Devin Suresh PLT 188 103/ul Normal 150-450 [facility] Comment on above: Performed By: #### C BC ####[facility] Rvkugduras346[address] [place], [place] [address]Dr. Devin Suresh RBC 3.26 106/ul Critically low 4.20-5.40 [facility] Comment on above: Performed By: #### C BC ####[facility] Rdbylvzcoo8644 [place] [address]Dr. Devin Suresh WBC 5.1 103/ul Normal 4.0-11.0 [facility] Comment on above: Performed By: #### C BC ####[facility] Dwcufncyjd8429[address] [place], [place] [address]Dr. Devin Suresh POINT OF CARE GLUCOSEon 07-23 Glucose [Mass/Vol] 129 mg/dL Critically high 74-106 [facility] Comment on above: Performed By: #### P OCGLUC ####[facility] Amrnmgtdix94[address] [place], [place] [id number]. Devin Suresh Glucose [Mass/Vol] 157 mg/dL Critically high 74-106 [facility] Comment on above: Performed By: #### P OCGLUC ####[facility] Upplxzefnv1138 [place] [address]Dr. Devin Suresh Glucose [Mass/Vol] 228 mg/dL Critically high 74-106 [facility] Comment on above: Performed By: #### P OCGLUC ####[facility] Onwixyajqv[address] [place] [address]Dr. Devin Suresh Glucose [Mass/Vol] 327 mg/dL Critically high -106 [facility] Comment on above: Performed By: #### P OCGLUC ####[facility] Adenkgfhbb4819[address] [place], [place] [address]Dr. Devin Kerwin PROF 14(COMP METB)on 023 Albumin [Mass/Vol] 2.9 g/dL Critically low 3.4-5.0 [facility] Comment on above: Performed By: #### C MP ####[facility] Crfbrvhsab77[address] [place], [place] [address]Dr. Devin Kerwin Albumin/Globulin [Mass ratio] 1.1 {ratio} Normal [facility] Comment on above: Performed By: #### C MP ####[facility] Xhduyhgrnf[address] [place], [place] [address]Dr. Devin Kerwin ALP [Catalytic activity/Vol] 85 U/L Normal 46-116 [facility] Comment on above: Performed By: #### C MP ####[facility] Lpkeurrtye7224[address] [place], [place] [address]Dr. Devin Kerwin ALT [Catalytic activity/Vol] 14 U/L Normal 14-59 [facility] Comment on above: Performed By: #### C MP ####[facility] Lnzjdmzjww3415[address] [place], [place] [address]Dr. Tishemily Kerwin Anion gap [Moles/Vol] 13.3 mmol/L Normal [facility] Comment on above: Performed By: #### C MP ####[facility] Eyobhwfile835[address] [place], [place] [address]Dr. Devin Suresh AST [Catalytic activity/Vol] 11 U/L Critically low 15-37 [facility] Comment on above: Performed By: #### C MP ####[facility] Aqhcxyckct[address] [place] [address]Dr. Devin Suresh Bilirubin [Mass/Vol] 0.2 mg/dL Normal 0.2-1.0 [facility] Comment on above: Performed By: #### C MP ####[facility] Oxodudltxg0442 [place] [address]Dr. Devin Suresh Calcium [Mass/Vol] 7.5 mg/dL Critically low 8.5-10.1 [facility] Comment on above: Performed By: #### C MP ####[facility] Pmbvafcjev8314 [place] [address]Dr. Devin Suresh Chloride [Moles/Vol] 109 mmol/L Critically high 98-107 [facility] Comment on above: Performed By: #### C MP ####[facility] Pfigizhpmf0316 [place] [address]Dr. Devin Suresh CO2 [Moles/Vol] 21.6 mmol/L Normal 21.0-32.0 [facility] Comment on above: Performed By: #### C MP ####[facility] Xvggwrcugu1605 [place] [address]Dr. Devin Suresh Creatinine [Mass/Vol] 1.15 mg/dL Critically high 0.55-1.02 [facility] Comment on above: Performed By: #### C MP ####[facility] Jyogjcnhwi28[address] [place] [address]Dr. Devin Kerwin EGFR-AF [place] >60 Normal >=60 [facility] Comment on above: Performed By: #### C MP ####[facility] Isknfkyyqb57[address] [place] [address]Dr. Devin Kerwin EGFR-NON AF [place] 51 mL/min/1.73m2 Critically low >=60 [facility] Comment on above: Performed By: #### C MP ####[facility] Ttobpbyeyq[address] [place] [address]Dr. Devin Suresh Globulin (S) [Mass/Vol] 2.6 g/dL Normal [facility] Comment on above: Performed By: #### C MP ####[facility] Ntxzeugvtw079[address] [place], [place] [address]Dr. Devin Suresh Glucose [Mass/Vol] 268 mg/dL Critically high 74-106 [facility] Comment on above: Performed By: #### C MP ####[facility] Jnbtpjbjqn192[address] [place], [place] [address]Dr. Devin Suresh Potassium [Moles/Vol] 3.9 mmol/L Normal 3.5-5.1 [facility] Comment on above: Performed By: #### C MP ####[facility] Nqnovwojax69260[address] [place], [place] [address]Dr. Devin Suresh Protein [Mass/Vol] 5.5 g/dL Critically low 6.4-8.2 [facility] [place] Comment on above: Performed By: #### C MP ####[facility] Qcwjtkpoxu860[address] [place], [place] [address]Dr. Devin Suresh Sodium [Moles/Vol] 140 mmol/L Normal 136-145 [facility] Comment on above: Performed By: #### C MP ####[facility] Hmcbjmrjak522[address] [place], [place] [address]Dr. Devin Suresh Urea nitrogen [Mass/Vol] 13.0 mg/dL Normal 7.0-18.0 [facility] Comment on above: Performed By: #### C MP ####[facility] Klewoudhgx946[address] [place], [place] [address]Dr. Devin Suresh Urea nitrogen/Creatinine [Mass ratio] 11.3 mg/mg Normal [facility] Comment on above: Performed By: #### C MP ####[facility] Lfetpqrwcw4814[address] [place], [place] [address]Dr. Devin Suresh CBC AUTO DIFFon 08-03-2022 BASO # 0.0 103/ul Normal 0.0-0.1 [facility] Comment on above: Performed By: #### C BC ####[facility] Bdcudldqkv0365 [place] [address]Dr. Devin Suresh Basophils/100 WBC (Bld) 0.6 % Normal 0.2-2.0 [facility] Comment on above: Performed By: #### C BC ####[facility] Cggjbgmeff214[address] [place], [place] [address]Dr. Devin Suresh EO # 0.1 103/ul Normal 0.0-0.7 [facility] Comment on above: Performed By: #### C BC ####[facility] Ivwkftrwpl468[address] [place], [place] [address]Dr. Devin Suresh Eosinophils/100 WBC (Bld) 3.1 % Normal 0.9-7.0 [facility] Comment on above: Performed By: #### C BC ####[facility] Fnlvtcfxpx873[address] [place], [place] [address]Dr. Devin Suresh Erythrocyte distribution width (RBC) [Ratio] 13.6 % Normal 11.0-15.0 [facility] Comment on above: Performed By: #### C BC ####[facility] Ochmrdrink[address] [place], [place] [address]Dr. Devin Suresh Hematocrit (Bld) [Volume fraction] 27.8 % Critically low 36.0-48.0 [facility] Comment on above: Performed By: #### C BC ####[facility] Hsqhizkvud[address] [place], [place] [address]Dr. Devin Suresh Hemoglobin (Bld) [Mass/Vol] 9.6 g/dL Critically low 12.0-16.0 [facility] Comment on above: Performed By: #### C BC ####[facility] Fvujvtokdk32[address] [place], [place] [address]Dr. Devin Suresh IG # 0.01 10e3/ul Normal 0.00-0.03 [facility] Comment on above: Performed By: #### C BC ####[facility] Tbgvueordg886[address] [place], [place] [address]Dr. Devin Suresh IG % 0.3 % Normal 0.0-0.5 [facility] Comment on above: Performed By: #### C BC ####[facility] Xuuywnrurz7[address] [place] [address]Dr. Devin Kerwin LYMPH # 1.5 103/ul Normal 1.2-3.8 [facility] Comment on above: Performed By: #### C BC ####[facility] Lbuxhsxmwz9122 [place] [address]Dr. Devin Kerwin Lymphocytes/100 WBC (Bld) 41.2 % Normal 20.5-60.0 [facility] Comment on above: Performed By: #### C BC ####[facility] Vkftqgdxvm8450 [place] [address]Dr. Devin Kerwin MANUAL DIFF REQ NO Normal [facility] Comment on above: Performed By: #### C BC ####[facility] Lsclzclulp6950 [place] [address]Dr. Devin Kerwin MCH (RBC) [Entitic mass] 31.0 pg Normal 26.7-34.0 [facility] Comment on above: Performed By: #### C BC ####[facility] Anoydmqwhl8149 [place] [address]Dr. Devin Suresh MCHC (RBC) [Mass/Vol] 34.5 g/dL Normal 29.9-35.2 [facility] Comment on above: Performed By: #### C BC ####[facility] Bzzvlmcxot5566 [place] [address]Dr. Devin Kerwin MCV (RBC) [Entitic vol] 89.7 fL Normal 81.0-99.0 [facility] Comment on above: Performed By: #### C BC ####[facility] Xmyoirnzzb7495 [place] [address]Dr. Devin Kerwin MONO # 0.4 103/ul Normal 0.3-0.8 [facility] Comment on above: Performed By: #### C BC ####[facility] Rkarbdllyw7662 [place] [address]Dr. Devin Kerwin Monocytes/100 WBC (Bld) 10.0 % Normal 1.7-12.0 [facility] Comment on above: Performed By: #### C BC ####[facility] Zmneubgmly6634 [place] [address]Dr. Devin Suresh NEUT # 1.6 103/ul Normal 1.4-6.5 [facility] Comment on above: Performed By: #### C BC ####[facility] Ksvkukcpzh0478 [place] [address]Dr. Devin Suresh Neutrophils/100 WBC (Bld) 44.8 % Normal 43.0-75.0 [facility] Comment on above: Performed By: #### C BC ####[facility] Yjlsacjdmx9435 [place] [address]Dr. Devin Suresh Platelet mean volume (Bld) [Entitic vol] 8.7 fL Critically low 9.5-13.5 [facility] Comment on above: Performed By: #### C BC ####[facility] Lxguesfyue8337 [place] [address]Dr. Devin Suresh PLT 185 103/ul Normal 150-450 [facility] Comment on above: Performed By: #### C BC ####[facility] Otrrihcxxl[address] [place], [place] [address]Dr. Devin Suresh RBC 3.10 106/ul Critically low 4.20-5.40 [facility] Comment on above: Performed By: #### C BC ####[facility] Vdspxzcucr6087 [place] [address]Dr. Tishemily Kerwin WBC 3.6 103/ul Critically low 4.0-11.0 [facility] Comment on above: Performed By: #### C BC ####[facility] Vkfqhcmrdw[address] [place], [place] [address]Dr. Devin Suresh GI PANEL (PCR)on 08-03-2022 Adenovirus F 40/41 Not detected Normal NOT DETECTED [facility] Comment on above: Performed By: #### G IPANEL ####[facility] Yqlgzbdxwj487[address] [place], [place] [address]Dr. Devin Suresh Astrovirus Not detected Normal NOT DETECTED [facility] Comment on above: Performed By: #### G IPANEL ####[facility] Vavehlbafr46[address] [place], [place] [address]Dr. Yilan Suresh C. Diff toxin A/B Not detected Normal NOT DETECTED [facility] Comment on above: Performed By: #### G IPANEL ####[facility] Wybjvqenzw846[address] [place], [place] [address]Dr. Devin Suresh Campylobacter Not detected Normal NOT DETECTED [facility] Comment on above: Performed By: #### G IPANEL ####[facility] Nmqrpdkvht084[address] [place], [place] [address]Dr. Devin Suresh Cryptosporidium Not detected Normal NOT DETECTED [facility] Comment on above: Performed By: #### G IPANEL ####[facility] Ptoosjjcui375[address] [place], [place] [address]Dr. Devin Suresh Cyclos. Cayetanensis Not detected Normal NOT DETECTED [facility] Comment on above: Performed By: #### G IPANEL ####[facility] Gyvsxqrafq954[address] [place], [place] [address]Dr. Devin Suresh E. Coli O157 Not Applicable Normal Not Applicable [facility] Comment on above: Performed By: #### G IPANEL ####[facility] Bufoexogga336[address] [place], [place] [address]Dr. Devin Suresh E. histolytica Not detected Normal NOT DETECTED [facility] Comment on above: Performed By: #### G IPANEL ####[facility] Ezoifrgbno468[address] [place], [place] [address]Dr. Devin Suresh EAEC Not detected Normal NOT DETECTED [facility] Comment on above: Performed By: #### G IPANEL ####[facility] Bwsdoyjifx998[address] [place], [place] [address]Dr. Devin Suresh EIEC Not detected Normal NOT DETECTED [facility] Comment on above: Performed By: #### G IPANEL ####[facility] Llqnuuxrju368[address] [place], [place] [address]Dr. Devin Suresh EPEC Not detected Normal NOT DETECTED [facility] Comment on above: Performed By: #### G IPANEL ####[facility] Xovplxficq535[address] [place], [place] [address]Dr. Devin Suresh ETEC Not detected Normal NOT DETECTED [facility] Comment on above: Performed By: #### G IPANEL ####[facility] Sflyfvekgn3321 [place] [phone]. Devin Kerwin G. Lamblia Not detected Normal NOT DETECTED [facility] Comment on above: Performed By: #### G IPANEL ####[facility] Rkttkkhmhh6145 [place] [phone]. Devin Suresh GIPANEL CONTROLS PASSED Normal [facility] Comment on above: Performed By: #### G IPANEL ####[facility] Thzcyxuotj76[address] [place], [place] [address]Dr. Tishemily Kerwin GIPNL EVIN HEADER GI PANEL BACTERIA Normal T [facility] Comment on above: Performed By: #### G IPANEL ####[facility] Pyimifctoh769[address] [place], [place] [address]Dr. Devin Kerwin GUTIERREZNLHD ECOLI GI PANEL DIARRHEAGEN IC E.COLI / SHIGELLA Normal [facility] Comment on above: Performed By: #### G IPANEL ####[facility] Zkwibbqfml730[address] [place], [place] [address]Dr. Devin Suresh GIPNLHD INFO SEE BELOW Normal [facility] Comment on above: Result Comment: EAEC - Enteroaggregative E. Coli EPEC- Enteropathogenic E. Coli ETEC- Enterotoxigenic E. Coli lt/st STEC- Shigella-like toxin-producing E. Coli stx1/stx2 EIEC- Shigella/Enteroinvasive E. Coli Performed By: #### G IPANEL ####[facility] Ecfahlqvho399[address] [place], [place] [address]Dr. Yiemily Suresh GIPNLHD PARASITES GI PANEL PARASITES Normal [facility] Comment on above: Performed By: #### G IPANEL ####[facility] Paiafeqppr060[address] [place], [place] [address]Dr. Yiemily Suresh GIPNLHD VIRUS GI PANEL VIRUSES Normal [facility] Comment on above: Performed By: #### G IPANEL ####[facility] Mgworyomgj38[address] [place], [place] [address]Dr. Tishemily Kerwin Norovirus GI/GII Not detected Normal NOT DETECTED [facility] Comment on above: Performed By: #### G IPANEL ####[facility] Mjxpixxfdj684[address] [place], [place] [address]Dr. Devin Suresh P. Shigelloides Not detected Normal NOT DETECTED [facility] Comment on above: Performed By: #### G IPANEL ####[facility] Ntjiyfqylo[address] [place], [place] [address]Dr. Devin Suresh Rotavirus A Not detected Normal NOT DETECTED [facility] Comment on above: Performed By: #### G IPANEL ####[facility] Snmhonnldb24[address] [place], [place] [address]Dr. Devin Suresh Salmonella Not detected Normal NOT DETECTED [facility] Comment on above: Performed By: #### G IPANEL ####[facility] Qrykdjshll120[address] [place], [place] [address]Dr. Devin [facility] Sapovirus Not detected Normal NOT DETECTED [facility] Comment on above: Performed By: #### G IPANEL ####[facility] Sfqtkgcizi016[address] [place], [place] [address]Dr. Devin Suresh STEC Not detected Normal NOT DETECTED [facility] Comment on above: Performed By: #### G IPANEL ####[facility] Bvbkbmedxj286[address] [place], [place] [address]Dr. emily [facility] Vibrio Not detected Normal NOT DETECTED [facility] Comment on above: Performed By: #### G IPANEL ####[facility] Zvxifedapz079[address] [place], [place] [address]Dr. emily [facility] Vibrio Cholera Not detected Normal NOT DETECTED [facility] Comment on above: Performed By: #### G IPANEL ####[facility] Aqlfpiemhu680[address] [place], [place] [address]Dr. emily Suresh Y. Enterocolitica Not detected Normal NOT DETECTED [facility] Comment on above: Performed By: #### G IPANEL ####[facility] Qsezhddswb336[address] [place], [place] [address]Dr. Devin Suresh POINT OF CARE GLUCOSEon 07-23 Glucose [Mass/Vol] 199 mg/dL Critically high 74-106 T [facility] Comment on above: Performed By: #### P OCGLUC ####[facility] Xhywixprtv5[address] [place] [address]Dr. Deivn Suresh Glucose [Mass/Vol] 193 mg/dL Critically high 74-106 [facility] Comment on above: Performed By: #### P OCGLUC ####[facility] Pibxrpytxf5172 [place] [address]Dr. Devin Suresh Glucose [Mass/Vol] 276 mg/dL Critically high 74-106 [facility] Comment on above: Performed By: #### P OCGLUC ####[facility] Gaiylacddz6187 [place] [address]Dr. Devin Suresh PROF 14(COMP METB)on 023 Albumin [Mass/Vol] 2.8 g/dL Critically low 3.4-5.0 [facility] Comment on above: Performed By: #### C MP ####[facility] Yiobxyljon548[address] [place], [place] [address]Dr. Devin Suresh Albumin/Globulin [Mass ratio] 1.1 {ratio} Normal [facility] Comment on above: Performed By: #### C MP ####[facility] Peqtlaxicn[address] [place], [place] [address]Dr. Devin Suresh ALP [Catalytic activity/Vol] 85 U/L Normal 46-116 [facility] Comment on above: Performed By: #### C MP ####[facility] Ryunxmfztg29[address] [place], [place] [address]Dr. Devin Suresh ALT [Catalytic activity/Vol] 13 U/L Critically low 14-59 [facility] Comment on above: Performed By: #### C MP ####[facility] Ofoqeqzqsl0773 [place] [address]Dr. Devin Suresh Anion gap [Moles/Vol] 10.2 mmol/L Normal [facility] Comment on above: Performed By: #### C MP ####[facility] Leoeatkpkx88220[address] [place], [place] [address]Dr. Devin Suresh AST [Catalytic activity/Vol] 12 U/L Critically low 15-37 [facility] Comment on above: Performed By: #### C MP ####[facility] Xbijhmfevd8605 [place] [phone]. Devin Suresh Bilirubin [Mass/Vol] 0.3 mg/dL Normal 0.2-1.0 [facility] Comment on above: Performed By: #### C MP ####[facility] Aupiqflbui2424 [place] [phone]. Devin Suresh Calcium [Mass/Vol] 7.4 mg/dL Critically low 8.5-10.1 [facility] [place] Comment on above: Performed By: #### C MP ####[facility] Ikfbenjwqo115[address] [place], [place] [address]Dr. Devin Suresh Chloride [Moles/Vol] 107 mmol/L Normal 98-107 [facility] Comment on above: Performed By: #### C MP ####[facility] Xcomnanfom95[address] [place], [place] [address]Dr. Devin Suresh CO2 [Moles/Vol] 23.4 mmol/L Normal 21.0-32.0 [facility] Comment on above: Performed By: #### C MP ####[facility] Oblamapdeu423[address] [place], [place] [address]Dr. Devin Suresh Creatinine [Mass/Vol] 1.23 mg/dL Critically high 0.55-1.02 [facility] Comment on above: Performed By: #### C MP ####[facility] Dckuypwcdy[address] [place], [place] [address]Dr. Devin Suresh EGFR-AF [place] 57 mL/min/1.73m2 Critically low >=60 [facility] Comment on above: Performed By: #### C MP ####[facility] Qwrxekviae[address] [place], [place] [address]Dr. Devin Suresh EGFR-NON AF [place] 47 mL/min/1.73m2 Critically low >=60 [facility] Comment on above: Performed By: #### C MP ####[facility] Gr[address]zz[address] [place], [place] [address]Dr. Devin Suresh Globulin (S) [Mass/Vol] 2.5 g/dL Normal [facility] Comment on above: Performed By: #### C MP ####[facility] [address]pr[address] [place] [address]Dr. Devin Suresh Glucose [Mass/Vol] 284 mg/dL Critically high 74-106 T [facility] Comment on above: Performed By: #### C MP ####[facility] [address]ucz[address] [place] [address]Dr. Devin Suresh Potassium [Moles/Vol] 3.6 mmol/L Normal 3.5-5.1 [facility] Comment on above: Performed By: #### C MP ####[facility] Jiynyjgoru[address] [place] [address]Dr. Devin Suresh Protein [Mass/Vol] 5.3 g/dL Critically low 6.4-8.2 Th [place] Comment on above: Performed By: #### C MP ####[facility] Alelbtab[address] [place], [place] [address]Dr. Devin Suresh Sodium [Moles/Vol] 137 mmol/L Normal 136-145 [facility] Comment on above: Performed By: #### C MP ####[facility] Binarvubpl[address] [place], [place] [address]Dr. Devin Suresh Urea nitrogen [Mass/Vol] 14.0 mg/dL Normal 7.0-18.0 [facility] Comment on above: Performed By: #### C MP ####[facility] Azrrusseek[address] [place], [place] [address]Dr. Devin Suresh Urea nitrogen/Creatinine [Mass ratio] 11.4 mg/mg Normal [facility] Comment on above: Performed By: #### C MP ####[facility] Aztceepehj[address] [place], [place] [address]Dr. Devin Kerwin BNPon 08-02-2022 Natriuretic peptide B (Bld) [Mass/Vol] 84.0 pg/mL Normal <=450.0 [facility] Comment on above: Performed By: #### C MADM, CMP, BNP, CRP ####[facility] [address] [place] [address]Dr. Devin Suresh CARDIAC LAURA ADMITon 023 CK [Catalytic activity/Vol] 46 U/L Normal 26-192 [facility] Comment on above: Performed By: #### C MADM, CMP, BNP, CRP ####[facility] [address]uszvo[address] [place] [address]Dr. Devin Suresh CK.MB [Mass/Vol] ng/mL Normal <=3.60 [facility] Comment on above: Performed By: #### C MADM, CMP, BNP, CRP ####[facility] Iabjfdycyj[address] [place] [address]Dr. Devin Kerwin HSTROP 6.5 pg/mL Normal 4.0-51.3 [facility] Comment on above: Result Comment: CUT- OFF POINTS HAVE BEEN ESTABLISHED BASED ON THE FOURTH UNIVERSAL DEFINITIONS OF MYOCARDIALINFARCTION. THE UPPER REFERENCE LIMIT (URL) OF TROPONIN, DEFINED THE 99TH PERCENTILE OFcTnI DISTRIBUTION IN A REFERENCE POPULATION, HAS BEEN CONFIRMED THE DECISION THRESHOLDFOR ND DIAGNOSIS. Performed By: #### C MADM, CMP, BNP, CRP ####[facility] Ydmwidrwej[address] [place] [address]Dr. Devin Kerwin MELANIE 75 ng/mL Normal 9-82 [facility] Comment on above: Performed By: #### C MADM, CMP, BNP, CRP ####[facility] Cpsglxcovi3[address] [place] [address]Dr. Devin Kerwin CBC AUTO DIFFon 08-02-2022 BASO # 0.0 103/ul Normal 0.0-0.1 [facility] Comment on above: Performed By: #### C BC ####[facility] Jgvtguosqm75[address] [place] [address]Dr. Tishemily Suresh Basophils/100 WBC (Bld) 0.4 % Normal 0.2-2.0 [facility] Comment on above: Performed By: #### C BC ####[facility] Svhrnracbp[address] [place] [address]Dr. Devin Suresh EO # 0.1 103/ul Normal 0.0-0.7 [facility] Comment on above: Performed By: #### C BC ####[facility] Uihbrihrkp[address] [place], [place] [address]Dr. Devin Suresh Eosinophils/100 WBC (Bld) 1.4 % Normal 0.9-7.0 [facility] Comment on above: Performed By: #### C BC ####[facility] Wvjtoqgvkq[address] [place], [place] [address]Dr. Devin Suresh Erythrocyte distribution width (RBC) [Ratio] 13.3 % Normal 11.0-15.0 [facility] Comment on above: Performed By: #### C BC ####[facility] Jvehntepud[address] [place], [place] [address]Dr. Devin Suresh Hematocrit (Bld) [Volume fraction] 33.4 % Critically low 36.0-48.0 [facility] Comment on above: Performed By: #### C BC ####[facility] Yhsvtcyrne[address] [place], [place] [address]Dr. Devin Suresh Hemoglobin (Bld) [Mass/Vol] 11.6 g/dL Critically low 12.0-16.0 [facility] Comment on above: Performed By: #### C BC ####[facility] Odiakybhen[address] [place], [place] [address]Dr. Devin Suresh IG # 0.01 10e3/ul Normal 0.00-0.03 [facility] Comment on above: Performed By: #### C BC ####[facility] Npucletrtp[address] [place], [place] [address]Dr. Devin Suresh IG % 0.2 % Normal 0.0-0.5 [facility] Comment on above: Performed By: #### C BC ####[facility] Ulhhiomuga[address] [place], [place] [address]Dr. Devin Suresh LYMPH # 1.3 103/ul Normal 1.2-3.8 [facility] Comment on above: Performed By: #### C BC ####[facility] Bhcdykflaz8[address] [place], [place] [address]Dr. Devin Suresh Lymphocytes/100 WBC (Bld) 24.5 % Normal 20.5-60.0 [facility] Comment on above: Performed By: #### C BC ####[facility] [address] [place] [id number]. Devin Suresh MANUAL DIFF REQ NO Normal [facility] Comment on above: Performed By: #### C BC ####[facility] Vihygdkqmj[address] [place] [id number]. Devin Suresh MCH (RBC) [Entitic mass] 30.5 pg Normal 26.7-34.0 [facility] Comment on above: Performed By: #### C BC ####[facility] Zvabtzcryj[address] [place] [address]Dr. Devin Suresh MCHC (RBC) [Mass/Vol] 34.7 g/dL Normal 29.9-35.2 [facility] Comment on above: Performed By: #### C BC ####[facility] Opwdmgqftp6[address] [place] [address]Dr. Devin Suresh MCV (RBC) [Entitic vol] 87.9 fL Normal 81.0-99.0 [facility] Comment on above: Performed By: #### C BC ####[facility] [address]uzdphmf[address] [place] [phone]. Devin Suresh MONO # 0.4 103/ul Normal 0.3-0.8 [facility] Comment on above: Performed By: #### C BC ####[facility] Aipdpjrxgv6[address] [place] [address]Dr. Devin Kerwin Monocytes/100 WBC (Bld) 8.4 % Normal 1.7-12.0 [facility] Comment on above: Performed By: #### C BC ####[facility] Jqjrxdvrjo75[address] [place] [phone]. Devin Suresh NEUT # 3.4 103/ul Normal 1.4-6.5 [facility] Comment on above: Performed By: #### C BC ####[facility] Izqdnkujid[address] [place], [place] [address]Dr. Devin Kerwin Neutrophils/100 WBC (Bld) 65.1 % Normal 43.0-75.0 [facility] Comment on above: Performed By: #### C BC ####[facility] Zfijpdbjca4[address] [place] [phone]. Devin Suresh Platelet mean volume (Bld) [Entitic vol] 8.8 fL Critically low 9.5-13.5 [facility] Comment on above: Performed By: #### C BC ####[facility] [address]el[address]pym[address] [place] [phone]. Devin Suresh PLT 218 103/ul Normal 150-450 [facility] Comment on above: Performed By: #### C BC ####[facility] Nqknkhlefu36[address] [place] [address]Dr. Devin Suresh RBC 3.80 106/ul Critically low 4.20-5.40 [facility] Comment on above: Performed By: #### C BC ####[facility] Upmb[address]vuyw[address] [place] [phone]. Devin Suresh WBC 5.1 103/ul Normal 4.0-11.0 [facility] Comment on above: Performed By: #### C BC ####[facility] [address] [place], [place] [id number]. Devin Surehs CRPon 08-02-2022 CRP 2.4 mg/dL Critically high <=1.0 [facility] Comment on above: Performed By: #### C MADM, CMP, BNP, CRP ####[facility] [address]fezst[address] [place] [phone]. Devin Suresh CULTURE BLOODon 08-02-2022 Microscopic examination of blood, culture Culture Observations: NO GROWTH AT 5 DAYS. Normal [facility] Comment on above: Performed By: #### B LDCX2 ####[facility] [address]elvelrjr[address] [place] [phone]. Devin Suresh Microscopic examination of blood, culture Culture Observations: NO GROWTH AT 5 DAYS. Normal [facility] Comment on above: Performed By: #### B LDCX1 ####[facility] [address]keve[address] [place] [phone]. Devin Suresh CULTURE URINEon 08-02-2022 CULTURE URINE Culture Observations : LIGHT GROWTH OF MIXED GENITAL ERIC. NO POTENTIAL PATHOGENS SEEN. Normal [facility] Comment on above: Performed By: #### U RCX ####[facility] [address]bduv[address] [place] [address]Dr. Devin Suresh Covid-19 PCR (CVDTB)on 07-23 SARS-CoV-2 (COVID-19) RNA EBONIE+probe Ql (Unsp spec) Not detected Normal NOT DETECTED [facility] Comment on above: Result Comment: When diagnostic testing is negative, the possibility of a false negative should be considered inthe context of a patient's recent exposures and the presence of clinical signs and symptomsconsistent with SARS-CoV-2.This test is not yet approved or cleared by the [place] FDA. When there are no FDA-approved or cleared tests available, and other criteria are met, FDA can make tests available under an emergency access mechanism called an Emergency Use Authorization (EUA). The EUA for this test is supported by the Product Developer of Health and Human Service's declaration that circumstances exist to justify the emergency use of in vitro diagnostics for the detection and/or diagnosis of the virus that causes COVID-19. This EUA will remain in effect for the duration of the COVID-19 declaration justifying emergency of IVDs, unless it is terminated or revoked by the FDA (after which the test may no longer be used). Performed By: #### C VDTBH ####[facility] [address]cjxpfw[address] [place] [address]Dr. Devin Suresh ER URINE PROFILEon 3 Bilirubin Ql (U) Negative Normal NEGATIVE [facility] Comment on above: Performed By: #### CHUCKY STARR ####[facility] Rjbtbkuglv5[address] [place] [address]Dr. Devin Suresh Clarity (U) CLEAR Normal CLEAR [facility] Comment on above: Performed By: #### CHUCKY STARR ####[facility] C[address]hdoumyy6[address] [place] [address]Dr. Devin Suresh Color (U) LT. YELLOW Normal YELLOW [facility] Comment on above: Performed By: #### CHUCKY STARR ####[facility] Snnmusfjpk[address] [place] [address]Dr. Devin VELAZQUEZ A micrscopic examina tion will be performed if indicated. Normal [facility] Comment on above: Performed By: #### CHUCKY STARR ####[facility] Qwmihckpwr60[address] [place] [address]Dr. Devin Suresh Glucose Ql (U) >1000 Abnormal NEGATIVE [facility] Comment on above: Performed By: #### CHUCKY STARR ####[facility] Ntlxcycako37[address] [place] [address]Dr. Devin Suresh Hemoglobin Ql (U) TRACE-LYSED Abnormal NEGATIVE [facility] Comment on above: Performed By: #### CHUCKY STARR ####[facility] Dajimqabcd[address] [place], [place] [address]Dr. Devin Suresh Ketones Ql (U) Negative Normal NEGATIVE [facility] Comment on above: Performed By: #### CHUCKY STARR ####[facility] R[address] [place], [place] [address]Dr. Devin Suresh LEUKOCYTES Negative Normal NEGATIVE [facility] Comment on above: Performed By: #### CHUCKY STARR ####[facility] Yglszgpnqk[address] [place], [place] [address]Dr. Devin Suresh Nitrite Ql (U) Negative Normal NEGATIVE [facility] Comment on above: Performed By: #### CHUCKY STARR ####[facility] Elybpgdzyu5[address] [place] [address]Dr. Devin Suresh pH (U) 6.0 [pH] Normal 5-9 [facility] Comment on above: Performed By: #### CHUCKY STARR ####[facility] Xjiaohueoz[address] [place] [address]Dr. Devin Suresh SPEC GRAVITY 1.010 Normal 1.005-<=1.0 25 [facility] Comment on above: Performed By: #### CHUCKY STARR ####[facility] Buhgwlldom[address] [place] [address]Dr. Devin Suresh UA PROTEIN Negative Normal NEGATIVE/ TRACE [facility] Comment on above: Performed By: #### E ALEJANDRO, UMICRO ####[facility] Jcxxvqipwu69[address] [place] [address]Dr. Devin Suresh UR MICRO IND INDICATED Normal [facility] Comment on above: Performed By: #### E ALEJANDRO, UMICRO ####[facility] Pavleknxtl[address] [place] [address]Dr. Devin Suresh Urobilinogen Qn (U) 0.2 {Sheyla'U}/dL Normal 0.2 - 1. 0 [facility] Comment on above: Performed By: #### GEORGE STARRICRO ####[facility] Jlgrpjxfjt7[address] [place] [address]Dr. Devin Suresh LACTATE/LACTIC ACIDon 2022 Lactate [Moles/Vol] 1.2 mmol/L Normal 0.4-2.0 [facility] Comment on above: Performed By: #### L ACT ####[facility] Qjqdaveejm0636 [place] [address]Dr. Devin Suresh Lactate [Moles/Vol] 3.1 mmol/L Critically high 0.4-2.0 [facility] Comment on above: Performed By: #### L ACT ####[facility] Vemratdycy[address] [place] [address]Dr. Devin Suresh POINT OF CARE GLUCOSEon 07-23 Glucose [Mass/Vol] 293 mg/dL Critically high 74-106 [facility] Comment on above: Performed By: #### P OCGLUC ####[facility] Lhcoljpdbf8[address] [place] [address]Dr. Devin Suresh POCGLUC >600 Critically high 74-106 [facility] Comment on above: Result Comment: Lab Draw Ordered Performed By: #### P OCGLUC ####[facility] Josqxcjyen15[address] [place] [address]Dr. Devin Suresh PROF 14(COMP METB)on 023 Albumin [Mass/Vol] 3.6 g/dL Normal 3.4-5.0 [facility] Comment on above: Performed By: #### C MADM, CMP, BNP, CRP ####[facility] Rkeaokdgum67[address] [place] [address]Dr. Devin Suresh Albumin/Globulin [Mass ratio] 1.2 {ratio} Normal [facility] Comment on above: Performed By: #### C MADM, CMP, BNP, CRP ####[facility] Comhmywzyf18[address] [place] [address]Dr. Devin Suresh ALP [Catalytic activity/Vol] 113 U/L Normal 46-116 [facility] Comment on above: Performed By: #### C MADM, CMP, BNP, CRP ####[facility] Yyitdeaoah[address] [place] [address]Dr. Devin Kerwin ALT [Catalytic activity/Vol] 12 U/L Critically low 14-59 [facility] Comment on above: Performed By: #### C MADM, CMP, BNP, CRP ####[facility] Gkbcxmdaqy[address] [place], [place] [address]Dr. Tishemily Kerwin Anion gap [Moles/Vol] 15.4 mmol/L Normal [facility] Comment on above: Performed By: #### C MADM, CMP, BNP, CRP ####[facility] Omeqrlarut[address] [place], [place] [address]Dr. Devin Suresh AST [Catalytic activity/Vol] 13 U/L Critically low 15-37 [facility] Comment on above: Performed By: #### C MADM, CMP, BNP, CRP ####[facility] Xbeleseqpe[address] [place], [place] [address]Dr. Devin Kerwin Bilirubin [Mass/Vol] 0.5 mg/dL Normal 0.2-1.0 [facility] Comment on above: Performed By: #### C MADM, CMP, BNP, CRP ####[facility] I[address]bwexvpk[address] [place], [place] [address]Dr. Tishemily Suresh Calcium [Mass/Vol] 8.4 mg/dL Critically low 8.5-10.1 [facility] Comment on above: Performed By: #### C MADM, CMP, BNP, CRP ####[facility] Bllwhvmhxf08[address] [place] [address]Dr. Devin Suresh Chloride [Moles/Vol] 96 mmol/L Critically low 98-107 [facility] Comment on above: Performed By: #### C MADM, CMP, BNP, CRP ####[facility] Qklcbnqdpz0850 [place] [address]Dr. Devin Suresh CO2 [Moles/Vol] 21.8 mmol/L Normal 21.0-32.0 [facility] Comment on above: Performed By: #### C MADM, CMP, BNP, CRP ####[facility] Jivhnqrylb3186 [place] [address]Dr. Devin Suresh Creatinine [Mass/Vol] 1.54 mg/dL Critically high 0.55-1.02 [facility] Comment on above: Performed By: #### C MADM, CMP, BNP, CRP ####[facility] Xfmjghatfr[address] [place], [place] [address]Dr. Devin Suresh EGFR-AF [place] 44 mL/min/1.73m2 Critically low >=60 [facility] Comment on above: Performed By: #### C MADM, CMP, BNP, CRP ####[facility] Ibpefipeoj[address] [place], [place] [address]Dr. Devin Suresh EGFR-NON AF [place] 36 mL/min/1.73m2 Critically low >=60 [facility] Comment on above: Performed By: #### C MADM, CMP, BNP, CRP ####[facility] Kdnrqgjhfx4828 [place] [address]Dr. Devin Suresh Globulin (S) [Mass/Vol] 3.1 g/dL Normal [facility] Comment on above: Performed By: #### C MADM, CMP, BNP, CRP ####[facility] Vkyjpygjwg3651 [place] [address]Dr. Devin Suresh Glucose [Mass/Vol] 562 mg/dL Critically high 74-106 [facility] Comment on above: Performed By: #### C MADM, CMP, BNP, CRP ####[facility] Dfooofmelu0936 [place] [address]Dr. Devin Suresh Potassium [Moles/Vol] 4.2 mmol/L Normal 3.5-5.1 [facility] Comment on above: Performed By: #### C MADM, CMP, BNP, CRP ####[facility] Swjhwvfjuo85[address] [place] [address]Dr. Devin Suresh Protein [Mass/Vol] 6.7 g/dL Normal 6.4-8.2 [facility] Comment on above: Performed By: #### C MADM, CMP, BNP, CRP ####[facility] Rjsvnpmflr4516 [place] [address]Dr. Devin Suresh Sodium [Moles/Vol] 129 mmol/L Critically low 136-145 [facility] [place] Comment on above: Performed By: #### C MADM, CMP, BNP, CRP ####[facility] Wkjmggdmsp5711 [place] [address]Dr. Devin Suresh Urea nitrogen [Mass/Vol] 18.0 mg/dL Normal 7.0-18.0 [facility] Comment on above: Performed By: #### C MADM, CMP, BNP, CRP ####[facility] Ofdbfotnhz2112 [place] [address]Dr. Devin Suresh Urea nitrogen/Creatinine [Mass ratio] 11.7 mg/mg Normal [facility] Comment on above: Performed By: #### C MADM, CMP, BNP, CRP ####[facility] Nlrghmrojz1748 [place] [address]Dr. Devin Suresh PROTIMEon 08-02-2022 INR Coag (PPP) [Relative time] 0.96 {INR} Normal [facility] Comment on above: Performed By: #### P T, PTT ####[facility] [address]qnp[address] [place], [place] [address]Dr. Devin Suresh INR GUIDELINES SEE BELOW Normal [facility] Comment on above: Result Comment: EVA RED INR: 2.0 - 3.0 CONDITIONS NOT LISTED BELOW 2.5 - 3.5 FOR PROSTHETIC HEART VALVE REPLACEMENT 2.5 - 3.5 RECURRENT THROMBOSIS Performed By: #### P T, PTT ####[facility] Ashlbpqbwq99[address] [place] [address]Dr. Devin Suresh PT Coag (PPP) [Time] 10.2 s Normal 9.0-11.6 [facility] Comment on above: Performed By: #### P T, PTT ####[facility] Myeifxxupo9[address] [place], [place] [address]Dr. Devin Suresh PTTon 08-02-2022 aPTT Coag (Bld) [Time] 26.4 s Normal 22.3-36.2 [facility] Comment on above: Performed By: #### P T, PTT ####[facility] Lrdmgdxwdr[address] [place], [place] [address]Dr. Devin Suresh [facility] SED RATE 22 mm/hr Critically high <=20 [facility] Comment on above: Performed By: #### S EDR ####[facility] [address]jdnypr[address] [place], [place] [address]Dr. Devin Suresh URINE MICROSCOPIC ONLYon BACTERIA TRACE Abnormal NONE SEEN [facility] Comment on above: Performed By: #### Bud ALLEN UMICRO ####[facility] Ivwmlrkltq[address] [place], [place] [address]Dr. Devin Suresh Bacteria identified Cx Nom (U) INDICATED Normal [facility] Comment on above: Performed By: #### Bud ALLEN UMICRO ####[facility] Rtxfimszdj[address] [place], [place] [address]Dr. Devin Suresh CAST NONE SEEN Normal NONE SEEN [facility] Comment on above: Performed By: #### Bud ALLEN UMICRO ####[facility] Mrmptwwewa[address] [place], [place] [address]Dr. Devin Suresh Crystals LM Nom (Urine sed) NONE SEEN Normal NONE SEEN [facility] Comment on above: Performed By: #### Bud ALLEN UMICRO ####[facility] Blppcdlqqn[address] [place], [place] [address]Dr. Devin Suresh Epithelial cells LM Ql (Urine sed) RARE Normal NONE SEEN /RARE [facility] Comment on above: Performed By: #### CHUCKY STARR ####[facility] [address]pannaoczv[address] [place] [phone]. Devin Suresh MUCOUS NONE SEEN Normal NONE SEEN [facility] Comment on above: Performed By: #### CHUCKY STARR ####[facility] Cjxjgsjrsj9138 [place] [address]Dr. Devin Suresh RBC 0-2 Normal 0-2 [facility] Comment on above: Performed By: #### CHUCKY STARR ####[facility] Uzqkgcgfwr2371 [place] [address]Dr. Devin Suresh WBC NONE SEEN Normal NONE SEEN [facility] Comment on above: Performed By: #### CHUCKY STARR ####[facility] Vyafalmdiv[address] [place], [place] [address]Dr. Devin Suresh YEAST PRESENT Abnormal NONE SEEN [facility] Comment on above: Performed By: #### CHUCKY STARR ####[facility] Fwiynjpaid[address] [place], [place] [address]Dr. Devin Suresh XR CHEST 1 Von 08-02-2022 XR CHEST 1 V Normal [facility] XR FOOT LT MIN 3 VIEWSon XR FOOT LT MIN 3 VIEWS Normal [facility] BLOOD CULTURE ID PANELon A. baumannii Not detected Normal NOT DETECTED [facility] Comment on above: Performed By: #### B CID2 ####[facility] Ufoedaqnxk[address] [place], [place] [address]Dr. Devin Suresh Bacteriodes fragilis Not detected Normal NOT DETECTED [facility] Comment on above: Performed By: #### B CID2 ####[facility] Xyarvwkfqa5279 [place] [address]Dr. Devin Suresh BCID CONTROLS PASSED Normal [facility] Comment on above: Performed By: #### B CID2 ####[facility] Bfwrottvzm8124 [place] [address]Dr. Devin Suresh BCIDBTHD BLOOD CULTURE BOTTLE INFORMATION Normal [facility] Comment on above: Performed By: #### B CID2 ####[facility] Pfmedwraeh[address] [place] [phone]. Yiemily Suresh BCIDHD1 ANTIMICROBIAL RESIST ANCE GENES Normal [facility] Comment on above: Performed By: #### B CID2 ####[facility] Egntsobvfh[address] [place], [place] [address]Dr. Yiemily Suresh BCIDHD2 SEE BELOW Normal [facility] Comment on above: Result Comment: Note : Antimicrobial resitance can occur via multiple mechanisms. A Not Detected result for the [employer] antomicrobial resistance gene assays does not indicate antimicrobial susceptibility. Subculturing is required for species identification and susceptibility testing of isolates. Performed By: #### B CID2 ####[facility] [address]sdaevrd[address] [place], [place] [address]Dr. Devin Suresh BCIDHD3 Positive Normal [facility] Comment on above: Performed By: #### B CID2 ####[facility] [address]ttclessb[address] [place], [place] [address]Dr. Devin Suresh BCIDHD4 Negative Normal [facility] Comment on above: Performed By: #### B CID2 ####[facility] Aiyacgiree123[address] [place], [place] [address]Dr. Devin Suresh BCIDHD5 YEAST Normal [facility] Comment on above: Performed By: #### B CID2 ####[facility] Xpjwkfjgfo857[address] [place], [place] [address]Dr. Yiemily Suresh Bottle Set: Set 2 Normal [facility] Comment on above: Performed By: #### B CID2 ####[facility] Fhdnrvwwst796[address] [place], [place] [address]Dr. Yiemily Suresh Bottle: Anaerobic Normal [facility] Comment on above: Performed By: #### B CID2 ####[facility] Cwcqdfwzvn267[address] [place], [place] [address]Dr. Yilan Suresh C. neoformans/gattii Not detected Normal NOT DETECTED [facility] Comment on above: Performed By: #### B CID2 ####[facility] Qgklxvtmei25[address] [place], [place] [address]Dr. Yiemily Suresh Jackelyn albicans Not detected Normal NOT DETECTED [facility] Comment on above: Performed By: #### B CID2 ####[facility] [address] [place] [address]Dr. Yiemily Suresh Jackelyn auris Not detected Normal NOT DETECTED [facility] Comment on above: Performed By: #### B CID2 ####[facility] Yxaoojmqrn268[address] [place], [place] [address]Dr. Yilan Suresh Jackelyn glabrata Not detected Normal NOT DETECTED [facility] Comment on above: Performed By: #### B CID2 ####[facility] Jgsgfhrjbu727[address] [place], [place] [address]Dr. Yiemily Suresh Jackelyn Krusei Not detected Normal NOT DETECTED [facility] Comment on above: Performed By: #### B CID2 ####[facility] Xdgsfeskaj657[address] [place], [place] [address]Dr. Yiemily Suresh Jackelyn Parapsilosis Not detected Normal NOT DETECTED [facility] Comment on above: Performed By: #### B CID2 ####[facility] Ttxanlycnx1029[address] [place], [place] [address]Dr. Yilan Suresh Jackelyn Tropicalis Not detected Normal NOT DETECTED [facility] Comment on above: Performed By: #### B CID2 ####[facility] Mpwtczylfz737[address] [place], [place] [address]Dr. Devin Suresh CTX-M Resistant Gene Not Applicable Normal NOT DETECTED [facility] Comment on above: Performed By: #### B CID2 ####[facility] Ftalngiele969[address] [place], [place] [address]Dr. Yiemily Suresh E. Cloacae complex Not detected Normal NOT DETECTED [facility] Comment on above: Performed By: #### B CID2 ####[facility] Ibvpkpnbiy115[address] [place], [place] [address]Dr. Yiemily Suresh E. faecalis Not detected Normal NOT DETECTED [facility] Comment on above: Performed By: #### B CID2 ####[facility] Zcpgcpnflp832[address] [place], [place] [address]Dr. Devin Suresh E. faecium Not detected Normal NOT DETECTED [facility] Comment on above: Performed By: #### B CID2 ####[facility] Cskamhddrw584[address] [place], [place] [address]Dr. Devin Suresh Enterobacteriaceae Not detected Normal NOT DETECTED [facility] Comment on above: Performed By: #### B CID2 ####[facility] Lqcswvninc505[address] [place], [place] [address]Dr. Devin Suresh Escherichia coli Not detected Normal NOT DETECTED [facility] Comment on above: Performed By: #### B CID2 ####[facility] Cbdjrpzpsv086[address] [place], [place] [address]Dr. Devin Suresh H. influenzae Not detected Normal NOT DETECTED [facility] Comment on above: Performed By: #### B CID2 ####[facility] Rzmmoiryvk834[address] [place], [place] [address]Dr. Devin Suresh IMP Resistant Gene Not Applicable Normal NOT DETECTED [facility] Comment on above: Performed By: #### B CID2 ####[facility] Idpkhceqau393[address] [place], [place] [address]Dr. Devin Suresh K. oxytoca Not detected Normal NOT DETECTED [facility] Comment on above: Performed By: #### B CID2 ####[facility] Axbdilktmq685[address] [place], [place] [address]Dr. Devin Suresh K. pneumoniae Not detected Normal NOT DETECTED [facility] Comment on above: Performed By: #### B CID2 ####[facility] Bsuxzrbqpy08[address] [place], [place] [address]Dr. Devin Suresh Klebsiella aerogenes Not detected Normal NOT DETECTED [facility] Comment on above: Performed By: #### B CID2 ####[facility] Qorjlhcfoy5219[address] [place], [place] [address]Dr. Devin Suresh KPC Resistant Gene Not Applicable Normal NOT DETECTED [facility] Comment on above: Performed By: #### B CID2 ####[facility] Kkeeewqwsc378[address] [place], [place] [address]Dr. Devin Suresh List. monocytogenes Not detected Normal NOT DETECTED [facility] Comment on above: Performed By: #### B CID2 ####[facility] Fjssyjbhyf457[address] [place], [place] [address]Dr. Devin Suresh Mcr-1 Resistant Gene Not Applicable Normal NOT DETECTED [facility] Comment on above: Performed By: #### B CID2 ####[facility] Mzpqgsimzl47280[address] [place], [place] [address]Dr. Tishlan Suresh mecA/C Not Applicable Normal NOT DETECTED [facility] Comment on above: Performed By: #### B CID2 ####[facility] Wdqwrbbmzv183[address] [place], [place] [address]Dr. Devin Suresh mecA/C MREJ Not Applicable Normal NOT DETECTED [facility] Comment on above: Performed By: #### B CID2 ####[facility] Kjfwsuslsj936[address] [place], [place] [address]Dr. Devin Suresh N. meningitidis Not detected Normal NOT DETECTED [facility] Comment on above: Performed By: #### B CID2 ####[facility] Ipuruxwiwv300[address] [place], [place] [address]Dr. Devin Suresh NDM Resistant Gene Not Applicable Normal NOT DETECTED [facility] Comment on above: Performed By: #### B CID2 ####[facility] Efpwctqpri943[address] [place], [place] [address]Dr. Devin Suresh Oxa-48-like Not Applicable Normal NOT DETECTED [facility] Comment on above: Performed By: #### B CID2 ####[facility] Rgarhljrpk79[address] [place], [place] [address]Dr. Devin Suresh Proteus Not detected Normal NOT DETECTED [facility] Comment on above: Performed By: #### B CID2 ####[facility] Gujyqrootr876[address] [place], [place] [address]Dr. Tishemily Suresh Pseud. aeruginosa Not detected Normal NOT DETECTED [facility] Comment on above: Performed By: #### B CID2 ####[facility] Uigffiqbvb857[address] [place], [place] [address]Dr. Tishemily Suresh S. maltophilia Not detected Normal NOT DETECTED [facility] Comment on above: Performed By: #### B CID2 ####[facility] Tfsfumshix286[address] [place], [place] [address]Dr. Devin Suresh Salmonella Not detected Normal NOT DETECTED [facility] Comment on above: Performed By: #### B CID2 ####[facility] [address] [place] [address]Dr. Devin Suresh Seratia marcescens Not detected Normal NOT DETECTED [facility] Comment on above: Performed By: #### B CID2 ####[facility] Rvhjrvstkj[address] [place], [place] [id number]. Devin Suresh Site: RAC Normal [facility] Comment on above: Performed By: #### B CID2 ####[facility] Lmzjxuovxg915[address] [place], [place] [address]Dr. Yiemily Suresh Staph. aureus Not detected Normal NOT DETECTED [facility] Comment on above: Performed By: #### B CID2 ####[facility] Ixjbhfydbq284[address] [place], [place] [address]Dr. Devin Suresh Staph. epidermidis Not detected Normal NOT DETECTED [facility] Comment on above: Performed By: #### B CID2 ####[facility] Icdfbetrkj9737[address] [place], [place] [address]Dr. Devin Suresh Staph. lugdunensis Not detected Normal NOT DETECTED [facility] Comment on above: Performed By: #### B CID2 ####[facility] Cneuqfirfy943[address] [place], [place] [address]Dr. Devin Suresh Staphylococcus Not detected Normal NOT DETECTED [facility] Comment on above: Performed By: #### B CID2 ####[facility] Nxthfkjbta29030[address] [place], [place] [address]Dr. Yiemily Suresh Strep. agalactiae Not detected Normal NOT DETECTED [facility] Comment on above: Performed By: #### B CID2 ####[facility] Dhksnigxkv737[address] [place], [place] [address]Dr. Yiemily Suresh Strep. pneumoniae Not detected Normal NOT DETECTED [facility] Comment on above: Performed By: #### B CID2 ####[facility] Tgihariysz676[address] [place], [place] [address]Dr. Devin Suresh Strep. pyogenes Not detected Normal NOT DETECTED [facility] Comment on above: Performed By: #### B CID2 ####[facility] Anbeqjczte04750[address] [place], [place] [address]Dr. Tishemily Kerwin Streptococcus Not detected Normal NOT DETECTED [facility] Comment on above: Performed By: #### B CID2 ####[facility] Xvoxxsvuks2817[address] [place], [place] [address]Dr. Tishemily Suresh Rich/B Resist. Gene Not Applicable Normal NOT DETECTED [facility] Comment on above: Performed By: #### B CID2 ####[facility] Ossjlmxdsy455[address] [place], [place] [address]Dr. Devin Suresh VIM Resistant Gene Not Applicable Normal NOT DETECTED [facility] Comment on above: Performed By: #### B CID2 ####[facility] Ypcuzutcyn909[address] [place], [place] [address]Dr. Devin Suresh CBC AUTO DIFFon 07-30-2022 BASO # 0.0 103/ul Normal 0.0-0.1 [facility] Comment on above: Performed By: #### C BC ####[facility] Fnfwdaxrax405[address] [place], [place] [address]Dr. Devin Suresh Basophils/100 WBC (Bld) 0.5 % Normal 0.2-2.0 [facility] Comment on above: Performed By: #### C BC ####[facility] Lxqmqzpdwm35400[address] [place], [place] [address]Dr. Devin Suresh EO # 0.1 103/ul Normal 0.0-0.7 [facility] Comment on above: Performed By: #### C BC ####[facility] Vjkhiyjwtr338[address] [place], [place] [address]Dr. Devin Suresh Eosinophils/100 WBC (Bld) 2.3 % Normal 0.9-7.0 [facility] Comment on above: Performed By: #### C BC ####[facility] Bbnzcqumvu529[address] [place], [place] [address]Dr. Devin Suresh Erythrocyte distribution width (RBC) [Ratio] 13.4 % Normal 11.0-15.0 [facility] Comment on above: Performed By: #### C BC ####[facility] Prnopikiop256[address] [place], [place] [address]Dr. Devin Suresh Hematocrit (Bld) [Volume fraction] 36.9 % Normal 36.0-48.0 [facility] Comment on above: Performed By: #### C BC ####[facility] [address] [place] [address]Dr. Devin Suresh Hemoglobin (Bld) [Mass/Vol] 12.9 g/dL Normal 12.0-16.0 [facility] Comment on above: Performed By: #### C BC ####[facility] J[address]ip[address] [place] [address]Dr. Devin Suresh IG # 0.02 10e3/ul Normal 0.00-0.03 [facility] Comment on above: Performed By: #### C BC ####[facility] Zneebjeewl574[address] [place], [place] [address]Dr. Devin Suresh IG % 0.4 % Normal 0.0-0.5 [facility] Comment on above: Performed By: #### C BC ####[facility] Ojuvoltpro253[address] [place], [place] [address]DrMaris Suresh LYMPH # 0.9 103/ul Critically low 1.2-3.8 [facility] Comment on above: Performed By: #### C BC ####[facility] Mjmqarolwb522[address] [place], [place] [address]DrMaris Suresh Lymphocytes/100 WBC (Bld) 16.4 % Critically low 20.5-60.0 [facility] Comment on above: Performed By: #### C BC ####[facility] Fhmmvhcusi656[address] [place], [place] [address]DrMaris Suresh MANUAL DIFF REQ NO Normal [facility] Comment on above: Performed By: #### C BC ####[facility] Qltxpunnbb114[address] [place], [place] [address]DrMaris Suresh MCH (RBC) [Entitic mass] 30.9 pg Normal 26.7-34.0 [facility] Comment on above: Performed By: #### C BC ####[facility] Ftlypmfsjf477[address] [place], [place] [address]Dr. Devin Suresh MCHC (RBC) [Mass/Vol] 35.0 g/dL Normal 29.9-35.2 [facility] Comment on above: Performed By: #### C BC ####[facility] Buiqnnekpl459[address] [place], [place] [address]DrMaris Suresh MCV (RBC) [Entitic vol] 88.3 fL Normal 81.0-99.0 [facility] Comment on above: Performed By: #### C BC ####[facility] Xcqaqfzviu822[address] [place], [place] [address]DrMaris Suresh MONO # 0.4 103/ul Normal 0.3-0.8 [facility] Comment on above: Performed By: #### C BC ####[facility] Aobrbmojrp055[address] [place], [place] [address]DrMaris Suresh Monocytes/100 WBC (Bld) 6.9 % Normal 1.7-12.0 [facility] Comment on above: Performed By: #### C BC ####[facility] Eoouztpaju583[address] [place], [place] [address]DrMaris Suresh NEUT # 4.2 103/ul Normal 1.4-6.5 [facility] Comment on above: Performed By: #### C BC ####[facility] Heptlwxgai501[address] [place], [place] [address]DrMaris Suresh Neutrophils/100 WBC (Bld) 73.5 % Normal 43.0-75.0 [facility] Comment on above: Performed By: #### C BC ####[facility] Iowzealnza5313[address] [place], [place] [address]DrMaris Suresh Platelet mean volume (Bld) [Entitic vol] 8.6 fL Critically low 9.5-13.5 [facility] Comment on above: Performed By: #### C BC ####[facility] Yyswngvypu52[address] [place], [place] [address]DrMaris Suresh PLT 290 103/ul Normal 150-450 [facility] Comment on above: Performed By: #### C BC ####[facility] Hljdvqtiks769[address] [place], [place] [address]DrMaris Suresh RBC 4.18 106/ul Critically low 4.20-5.40 [facility] Comment on above: Performed By: #### C BC ####[facility] [address] [place], [place] [address]Vb. Devin Suresh WBC 5.7 103/ul Normal 4.0-11.0 [facility] Comment on above: Performed By: #### C BC ####[facility] R[address]ea[address] [place], [place] [address]Ht. Devin Suresh CULTURE BLOODon 07-30-2022 Microscopic examination of blood, culture Culture Observations: NO GROWTH AT 5 DAYS. Normal [facility] Comment on above: Performed By: #### B LDCX1 ####[facility] Qxpgdoosfa549[address] [place] [id number]. Devin Suresh Covid-19 PCR (CVDTBH)on SARS-CoV-2 (COVID-19) RNA EBONIE+probe Ql (Unsp spec) Not detected Normal NOT DETECTED [facility] Comment on above: Result Comment: When diagnostic testing is negative, the possibility of a false negative should be considered inthe context of a patient's recent exposures and the presence of clinical signs and symptomsconsistent with SARS-CoV-2.This test is not yet approved or cleared by the [place] FDA. When there are no FDA-approved or cleared tests available, and other criteria are met, FDA can make tests available under an emergency access mechanism called an Emergency Use Authorization (EUA). The EUA for this test is supported by the Product Developer of Health and Human Service's declaration that circumstances exist to justify the emergency use of in vitro diagnostics for the detection and/or diagnosis of the virus that causes COVID-19. This EUA will remain in effect for the duration of the COVID-19 declaration justifying emergency of IVDs, unless it is terminated or revoked by the FDA (after which the test may no longer be used). Performed By: #### C VDTBH ####[facility] [address]dt[address] [place], [place] [address]Df. Devin Suresh LACTATE/LACTIC ACIDon 2022 Lactate [Moles/Vol] 1.2 mmol/L Normal 0.4-1.9 [facility] Comment on above: Performed By: #### L ACT ####[facility] V[address]bue[address] [place] [address]Dr. Devin Suresh PROF 14(COMP METB)on 023 Albumin [Mass/Vol] 4.1 g/dL Normal 3.4-5.0 [facility] Comment on above: Performed By: #### C MP ####[facility] Fxhotqtcol0654 [place] [address]Dr. Devin Suresh Albumin/Globulin [Mass ratio] 1.2 {ratio} Normal [facility] Comment on above: Performed By: #### C MP ####[facility] Vzvjsuigzh420[address] [place], [place] [address]Dr. Devin Suresh ALP [Catalytic activity/Vol] 114 U/L Normal 46-116 [facility] Comment on above: Performed By: #### C MP ####[facility] Qyehvbwaee982[address] [place], [place] [address]Dr. Devin Suresh ALT [Catalytic activity/Vol] 20 U/L Normal 14-59 [facility] Comment on above: Performed By: #### C MP ####[facility] Vkhvvtuxsf620[address] [place], [place] [address]Dr. Devin Suresh Anion gap [Moles/Vol] 13.5 mmol/L Normal [facility] Comment on above: Performed By: #### C MP ####[facility] Zekibalgtm[address] [place] [address]Dr. Devin Suresh AST [Catalytic activity/Vol] 12 U/L Critically low 15-37 [facility] Comment on above: Performed By: #### C MP ####[facility] Ntdpekpwjc56[address] [place] [address]Dr. Devin Suresh Bilirubin [Mass/Vol] 0.4 mg/dL Normal 0.2-1.0 [facility] Comment on above: Performed By: #### C MP ####[facility] Yfifkgnjsd8406 [place] [address]Dr. Devin Suresh Calcium [Mass/Vol] 9.3 mg/dL Normal 8.5-10.1 [facility] Comment on above: Performed By: #### C MP ####[facility] [address]pq[address]xylvdy6[address] [place] [address]Dr. Devin Suresh Chloride [Moles/Vol] 105 mmol/L Normal 98-107 [facility] Comment on above: Performed By: #### C MP ####[facility] Yhxsbypwae7504 [place] [address]Dr. Devin Suresh CO2 [Moles/Vol] 27.3 mmol/L Normal 21.0-32.0 [facility] Comment on above: Performed By: #### C MP ####[facility] Povppjnluk39[address] [place], [place] [address]Dr. Devin Suresh Creatinine [Mass/Vol] 0.90 mg/dL Normal 0.55-1.02 [facility] Comment on above: Performed By: #### C MP ####[facility] Jbmrsgfkfq8918[address] [place], [place] [address]Dr. Devin Suresh EGFR-AF [place] >60 Normal >=60 [facility] Comment on above: Performed By: #### C MP ####[facility] Apcotcqxmw39040[address] [place], [place] [address]Dr. Devin Suresh EGFR-NON AF [place] >60 Normal >=60 [facility] Comment on above: Performed By: #### C MP ####[facility] Crcspwyayc992[address] [place], [place] [address]Dr. Devin Suresh Globulin (S) [Mass/Vol] 3.5 g/dL Normal [facility] Comment on above: Performed By: #### C MP ####[facility] Lavsfppuzo[address] [place] [address]Dr. Devin Kerwin Glucose [Mass/Vol] 114 mg/dL Critically high 74-106 [facility] Comment on above: Performed By: #### C MP ####[facility] Lnqvkfqjrj27[address] [place] [address]Dr. Devin Suresh Potassium [Moles/Vol] 3.8 mmol/L Normal 3.5-5.1 [facility] Comment on above: Performed By: #### C MP ####[facility] Xopoqxdipn7703 [place] [address]Dr. Devin Suresh Protein [Mass/Vol] 7.6 g/dL Normal 6.4-8.2 [facility] Comment on above: Performed By: #### C MP ####[facility] Purzixmtpw2976 [place] [address]Dr. Devin Suresh Sodium [Moles/Vol] 142 mmol/L Normal 136-145 [facility] Comment on above: Performed By: #### C MP ####[facility] Waodvxusrx1799[address] [place], [place] [address]Dr. Devin Suresh Urea nitrogen [Mass/Vol] 12.0 mg/dL Normal 7.0-18.0 [facility] Comment on above: Performed By: #### C MP ####[facility] Djgzlrgcai188[address] [place], [place] [address]Dr. Tishemily Kerwin Urea nitrogen/Creatinine [Mass ratio] 13.3 mg/mg Normal [facility] Comment on above: Performed By: #### C MP ####[facility] Xprrplgpew518[address] [place], [place] [address]Dr. Devin Kerwin XR CHEST 1 Von 07-30-2022 XR CHEST 1 V Normal [facility] XR FOOT LT MIN 3 VIEWSon XR FOOT LT MIN 3 VIEWS Normal [facility] ACETAMINOPHENon 07-10-2022 Acetaminophen [Mass/Vol] ug/mL Critically low 10.0-30.0 [facility] Comment on above: Performed By: #### A CET, SALYC ####[facility] Tdqxkaoamp505[address] [place], [place] [address]Dr. Devin Kerwin CBC AUTO DIFFon 07-10-2022 BASO # 0.1 103/ul Normal 0.0-0.1 [facility] Comment on above: Performed By: #### C BC ####[facility] [address] [place], [place] [address]Dr. Tishemily Suresh Basophils/100 WBC (Bld) 0.8 % Normal 0.2-2.0 [facility] Comment on above: Performed By: #### C BC ####[facility] Wywh[address]wfpb[address] [place] [address]Dr. Devin Suresh EO # 0.2 103/ul Normal 0.0-0.7 [facility] Comment on above: Performed By: #### C BC ####[facility] Qfkdwuuief57360[address] [place], [place] [address]Dr. Devin Suresh Eosinophils/100 WBC (Bld) 1.6 % Normal 0.9-7.0 [facility] Comment on above: Performed By: #### C BC ####[facility] Vixmvhtnte418[address] [place], [place] [address]Dr. Devin Suresh Erythrocyte distribution width (RBC) [Ratio] 12.9 % Normal 11.0-15.0 [facility] Comment on above: Performed By: #### C BC ####[facility] Ecadjyfhit522[address] [place], [place] [address]Dr. Devin Suresh Hematocrit (Bld) [Volume fraction] 35.5 % Critically low 36.0-48.0 [facility] Comment on above: Performed By: #### C BC ####[facility] Ksaumdmtnw0813[address] [place], [place] [address]Dr. Devin Suresh Hemoglobin (Bld) [Mass/Vol] 12.4 g/dL Normal 12.0-16.0 [facility] Comment on above: Performed By: #### C BC ####[facility] Cjhztexnwd599[address] [place], [place] [address]Dr. Devin Suresh IG # 0.03 10e3/ul Normal 0.00-0.03 [facility] Comment on above: Performed By: #### C BC ####[facility] Phzisbftih198[address] [place], [place] [address]Dr. Devin Suresh IG % 0.3 % Normal 0.0-0.5 [facility] Comment on above: Performed By: #### C BC ####[facility] Nutsnrrnqx064[address] [place], [place] [address]Dr. Tishemily Suresh LYMPH # 1.8 103/ul Normal 1.2-3.8 [facility] Comment on above: Performed By: #### C BC ####[facility] [address]cyudnt4[address] [place] [address]Dr. Tishemily Suresh Lymphocytes/100 WBC (Bld) 19.5 % Critically low 20.5-60.0 [facility] Comment on above: Performed By: #### C BC ####[facility] Bhbf[address]wgue14[address] [place] [phone]. Devin Suresh MANUAL DIFF REQ NO Normal [facility] Comment on above: Performed By: #### C BC ####[facility] Rhvocufjzg5004 [place] [id number]. Devin Suresh MCH (RBC) [Entitic mass] 31.2 pg Normal 26.7-34.0 [facility] Comment on above: Performed By: #### C BC ####[facility] Ivrjxfqvjs[address] [place], [place] [address]Dr. Devin Suresh MCHC (RBC) [Mass/Vol] 34.9 g/dL Normal 29.9-35.2 [facility] Comment on above: Performed By: #### C BC ####[facility] [address]vzhbkn[address] [place] [phone]. Devin Suresh MCV (RBC) [Entitic vol] 89.2 fL Normal 81.0-99.0 [facility] Comment on above: Performed By: #### C BC ####[facility] Dprmvycbae[address] [place], [place] [id number]. Devin Suresh MONO # 0.5 103/ul Normal 0.3-0.8 [facility] Comment on above: Performed By: #### C BC ####[facility] Hdzaxtsdcd34[address] [place] [phone]. Devin Suresh Monocytes/100 WBC (Bld) 5.0 % Normal 1.7-12.0 [facility] Comment on above: Performed By: #### C BC ####[facility] Bszhjtnlaa33[address] [place] [phone]. Devin Suresh NEUT # 6.8 103/ul Critically high 1.4-6.5 [facility] Comment on above: Performed By: #### C BC ####[facility] Ucwsdxvyqn9375 [place] [phone]. Devin Suresh Neutrophils/100 WBC (Bld) 72.8 % Normal 43.0-75.0 [facility] Comment on above: Performed By: #### C BC ####[facility] Ndyswmcmty8943 [place] [phone]. Tsihemily Suresh Platelet mean volume (Bld) [Entitic vol] 8.6 fL Critically low 9.5-13.5 [facility] Comment on above: Performed By: #### C BC ####[facility] Gdatruyrjz16[address] [place] [phone]. Tishemily Kerwin PLT 303 103/ul Normal 150-450 [facility] Comment on above: Performed By: #### C BC ####[facility] Klovqajvjh6793 [place] [phone]. Tishemily Kerwin RBC 3.98 106/ul Critically low 4.20-5.40 [facility] Comment on above: Performed By: #### C BC ####[facility] Bbdiypuaxe8475 [place] [phone]. Devin Suresh WBC 9.3 103/ul Normal 4.0-11.0 [facility] Comment on above: Performed By: #### C BC ####[facility] Dxegvbease6172 [place] [phone]. Devin Suresh DRUG SCREEN RAPID (URINE)on 07-10-2022 AMP Negative Normal NEGATIVE [facility] Comment on above: Performed By: #### D RUGRPD ####[facility] Tieztaviis40[address] [place] [phone]. Devin Suresh BAR Negative Normal NEGATIVE [facility] Comment on above: Performed By: #### D RUGRPD ####[facility] Nkmsdazrpf8743 [place] [phone]. Devin Suresh BUP Negative Normal NEGATIVE [facility] Comment on above: Performed By: #### D RUGRPD ####[facility] Vquyydcyde5[address] [place] [phone]. Devin Suresh BZO Negative Normal NEGATIVE [facility] Comment on above: Performed By: #### D RUGRPD ####[facility] Iksxwldnxg[address] [place], [place] [address]Dr. Devin Suresh KATHY Negative Normal NEGATIVE [facility] Comment on above: Performed By: #### D RUGRPD ####[facility] Xpawocryjc067[address] [place], [place] [address]Dr. Devin Suresh CUT-OFFS SEE BELOW Normal [facility] Comment on above: Result Comment: AMP (Amphetamine): 500ng/mL, BAR (Barbituates): 200 ng/mL, BZO (Benzodiazepines): 150 ng/mL, BUP (Buprenorphine): 10 ng/mL, KATHY (Cocaine): 150 ng/mL, mAMP (Methamphetamine): 500 ng/mL, MTD (Methadone): 200 ng/mL, OPI (Opiates): 100 ng/mL, OXY (Oxycodone): 100 ng/mL, PCP (Phencyclidine): 25 ng/mL, PPX (Propoxyphene): 300 ng/mL, THC (Cannabinoids): 50 ng/mL, TCA (Trycyclic Antidepressants): 300 ng/mL Performed By: #### D RUGRPD ####[facility] Xpuewhsyrj190[address] [place], [place] [address]Dr. Devin Suresh DRUG CUT HEADER DRUG CLASS TEST SYST EM CUT-OFF CONCENTRATIONS ARE FOLLOWS: Normal [facility] Comment on above: Performed By: #### D RUGRPD ####[facility] Filbfwhnaz[address] [place], [place] [address]Dr. Devin Suresh mAMP Negative Normal NEGATIVE [facility] Comment on above: Performed By: #### D RUGRPD ####[facility] Oazjtedmjx[address] [place], [place] [address]Dr. Devin Suresh MTD Negative Normal NEGATIVE [facility] Comment on above: Performed By: #### D RUGRPD ####[facility] Tmltiteuxk389[address] [place], [place] [address]Dr. Devin Suresh OPI Negative Normal NEGATIVE [facility] Comment on above: Performed By: #### D RUGRPD ####[facility] Gtkpuwmnsz3003 [place] [phone]. Devin Suresh OXY Negative Normal NEGATIVE [facility] Comment on above: Performed By: #### D RUGRPD ####[facility] Jtyjcqxmoh6[address] [place] [address]Dr. Devin Suresh PCP Negative Normal NEGATIVE [facility] Comment on above: Performed By: #### D RUGRPD ####[facility] Gomvzngqzu80[address] [place] [address]Dr. Devin Kerwin PPX Negative Normal NEGATIVE [facility] Comment on above: Performed By: #### D RUGRPD ####[facility] Yxbsrpanvy428[address] [place], [place] [address]Dr. Tishemily Suresh TCA Positive Abnormal NEGATIVE [facility] Comment on above: Performed By: #### D RUGRPD ####[facility] Stlgvevars654[address] [place], [place] [address]Dr. Devin Suresh THC Negative Normal NEGATIVE [facility] Comment on above: Performed By: #### D RUGRPD ####[facility] Ommoghzusy137[address] [place], [place] [address]Dr. Devin Suresh ER URINE PROFILEon 3 Bilirubin Ql (U) Negative Normal NEGATIVE [facility] Comment on above: Performed By: #### E RUR ####[facility] Awjvjhwiwt859[address] [place], [place] [address]Dr. Devin Suresh Clarity (U) CLEAR Normal CLEAR [facility] Comment on above: Performed By: #### E RUR ####[facility] Qhcupxxtjo[address] [place], [place] [address]Dr. Devin Suresh Color (U) LT. YELLOW Normal YELLOW [facility] Comment on above: Performed By: #### E RUR ####[facility] Vegunxsxvb40[address] [place], [place] [address]Dr. Devin Suresh ERUAHD A micrscopic examina tion will be performed if indicated. Normal [facility] Comment on above: Performed By: #### E RUR ####[facility] Pavjrfezpp022[address] [place], [place] [address]Dr. Devin Suresh Glucose Ql (U) 500 mg/dl Abnormal NEGATIVE [facility] Comment on above: Performed By: #### E RUR ####[facility] Rcscpgcjuo238[address] [place], [place] [address]Dr. Devin Suresh Hemoglobin Ql (U) TRACE-INTACT Abnormal NEGATIVE [facility] Comment on above: Performed By: #### E RUR ####[facility] Peoqoabtna[address] [place], [place] [address]Dr. Devin Suresh Ketones Ql (U) Negative Normal NEGATIVE [facility] Comment on above: Performed By: #### E RUR ####[facility] Ioprvkewxy712[address] [place], [place] [address]Dr. Devin Suresh LEUKOCYTES Negative Normal NEGATIVE [facility] Comment on above: Performed By: #### E RUR ####[facility] Ejezrpllam119[address] [place], [place] [address]Dr. Devin Suresh Nitrite Ql (U) Negative Normal NEGATIVE [facility] Comment on above: Performed By: #### E RUR ####[facility] Wpwmtlfnvc903[address] [place], [place] [address]Dr. Devin Suresh pH (U) 6.0 [pH] Normal 5-9 [facility] Comment on above: Performed By: #### E RUR ####[facility] Amqqxoxrxe447[address] [place], [place] [address]Dr. Devin Suresh SPEC GRAVITY 1.025 Normal 1.005-<=1.0 25 [facility] Comment on above: Performed By: #### E RUR ####[facility] Ljwbqzkofr99[address] [place], [place] [address]Dr. Devin Suresh UA PROTEIN TRACE Normal NEGATIVE/ TRACE [facility] Comment on above: Performed By: #### E RUR ####[facility] Jnabuhuehq[address] [place], [place] [address]Dr. Devin Suresh UR MICRO IND NOT INDICATED Normal [facility] Comment on above: Performed By: #### E RUR ####[facility] Bxdszbgovn078[address] [place], [place] [address]Dr. Devin Suresh Urobilinogen Qn (U) 0.2 {Sheyla'U}/dL Normal 0.2 - 1. 0 [facility] Comment on above: Performed By: #### E RUR ####[facility] Pakcvupcjz[address] [place] [address]Dr. Devin Suresh ETHANOL (BLD ALC)on 07-10-19 ALC NOTE NOTE: 80 mg/dl is th e legal limit for a blood alcohol level Normal [facility] Comment on above: Performed By: #### E TH ####[facility] Wdpfycrjob9[address] [place], [place] [address]Dr. Tishemily Suresh Ethanol [Mass/Vol] mg/dL Normal [facility] Comment on above: Performed By: #### E TH ####[facility] Tdwpfgufic[address] [place], [place] [address]Dr. Tishemily Suresh PROF CHEM 8 (BAS METB)on Anion gap [Moles/Vol] 12.4 mmol/L Normal [facility] Comment on above: Performed By: #### B MP ####[facility] Zwchrwvdzk142[address] [place], [place] [address]Dr. Devin Suresh Calcium [Mass/Vol] 8.6 mg/dL Normal 8.5-10.1 [facility] Comment on above: Performed By: #### B MP ####[facility] Fztzuzycqq075[address] [place], [place] [address]Dr. Tishemily Kerwin Chloride [Moles/Vol] 103 mmol/L Normal 98-107 [facility] Comment on above: Performed By: #### B MP ####[facility] Ksgsyyebgm084[address] [place], [place] [address]Dr. Devin Suresh CO2 [Moles/Vol] 27.5 mmol/L Normal 21.0-32.0 [facility] Comment on above: Performed By: #### B MP ####[facility] Dxdoxuynnr298[address] [place], [place] [address]Dr. Devin Suresh Creatinine [Mass/Vol] 1.10 mg/dL Critically high 0.55-1.02 [facility] Comment on above: Performed By: #### B MP ####[facility] Isbbtemyxx44[address] [place] [phone]. Devin Suresh EGFR-AF [place] >60 Normal >=60 [facility] Comment on above: Performed By: #### B MP ####[facility] Wgucnnbkdf4548 [place] [phone]. Devin Suresh EGFR-NON AF [place] 54 mL/min/1.73m2 Critically low >=60 [facility] Comment on above: Performed By: #### B MP ####[facility] Ncjlvysklw0974 [place] [phone]. Devin Suresh Glucose [Mass/Vol] 253 mg/dL Critically high 74-106 [facility] Comment on above: Performed By: #### B MP ####[facility] Bgsdjkjonz5807 [place] [address]Dr. Devin Suresh Potassium [Moles/Vol] 3.9 mmol/L Normal 3.5-5.1 [facility] Comment on above: Performed By: #### B MP ####[facility] Yazebqdbhm7[address] [place] [address]Dr. Devin Suresh Sodium [Moles/Vol] 139 mmol/L Normal 136-145 [facility] Comment on above: Performed By: #### B MP ####[facility] Ofxunlyvno0759 [place] [address]Dr. Devin Suresh Urea nitrogen [Mass/Vol] 18.0 mg/dL Normal 7.0-18.0 [facility] Comment on above: Performed By: #### B MP ####[facility] Pwktwdwqwf4265 [place] [address]Dr. Devin Suresh Urea nitrogen/Creatinine [Mass ratio] 16.4 mg/mg Normal [facility] Comment on above: Performed By: #### B MP ####[facility] Hmqvemstod022[address] [place], [place] [address]Dr. Devin Suresh SALICYLATEon 07-10-2022 SALICYLATE <2.8 Normal <=19.9 [facility] Comment on above: Performed By: #### A RHEA CAMPUZANO ####[facility] Xtenkpkvmw7586 [place] [phone]. Devin Suresh CBC AUTO DIFFon 06-21-2022 BASO # 0.1 103/ul Normal 0.0-0.1 [facility] Comment on above: Performed By: #### C BC ####[facility] Wfjwzbxhet9293 [place] [phone]. Devin Kerwin Basophils/100 WBC (Bld) 0.8 % Normal 0.2-2.0 [facility] Comment on above: Performed By: #### C BC ####[facility] Qhmbajzmdt[address] [place], [place] [address]Dr. Devin Suresh EO # 0.2 103/ul Normal 0.0-0.7 [facility] Comment on above: Performed By: #### C BC ####[facility] Fmytrbztag4824[address] [place], [place] [address]Dr. Devin Kerwin Eosinophils/100 WBC (Bld) 2.1 % Normal 0.9-7.0 [facility] Comment on above: Performed By: #### C BC ####[facility] Surkqecrpu04[address] [place], [place] [address]Dr. Devin Suresh Erythrocyte distribution width (RBC) [Ratio] 12.6 % Normal 11.0-15.0 [facility] Comment on above: Performed By: #### C BC ####[facility] Qaqazhktrh86[address] [place], [place] [address]Dr. Devin Suresh Hematocrit (Bld) [Volume fraction] 34.9 % Critically low 36.0-48.0 [facility] Comment on above: Performed By: #### C BC ####[facility] Dgthykdwhu[address] [place], [place] [address]Dr. Devin Suresh Hemoglobin (Bld) [Mass/Vol] 12.3 g/dL Normal 12.0-16.0 [facility] Comment on above: Performed By: #### C BC ####[facility] Mwstzqixtc174[address] [place], [place] [address]Dr. Devin Suresh IG # 0.03 10e3/ul Normal 0.00-0.03 [facility] Comment on above: Performed By: #### C BC ####[facility] Cjmsxtndlb3902 [place] [address]Dr. Tishemily Suresh IG % 0.4 % Normal 0.0-0.5 [facility] Comment on above: Performed By: #### C BC ####[facility] Sqgdpqdcpo9938 [place] [phone]. Tishemily Suresh LYMPH # 1.7 103/ul Normal 1.2-3.8 [facility] Comment on above: Performed By: #### C BC ####[facility] Twelolnjdv6656 [place] [phone] Suresh Lymphocytes/100 WBC (Bld) 20.0 % Critically low 20.5-60.0 [facility] Comment on above: Performed By: #### C BC ####[facility] Owyjuntxxj2[address] [place] [address]Dr. Devin Suresh MANUAL DIFF REQ NO Normal [facility] Comment on above: Performed By: #### C BC ####[facility] Fweaepgygr2967 [place] [phone]. Devin Kerwin MCH (RBC) [Entitic mass] 29.6 pg Normal 26.7-34.0 [facility] Comment on above: Performed By: #### C BC ####[facility] Ffbabwehqb4689 [place] [phone]. Tishemily Suresh MCHC (RBC) [Mass/Vol] 35.2 g/dL Normal 29.9-35.2 [facility] Comment on above: Performed By: #### C BC ####[facility] Sswaiypvrs6551 [place] [phone] Tishemily Suresh MCV (RBC) [Entitic vol] 83.9 fL Normal 81.0-99.0 [facility] Comment on above: Performed By: #### C BC ####[facility] Iypfnhvgwb3013 [place] [phone] Suresh MONO # 0.4 103/ul Normal 0.3-0.8 [facility] Comment on above: Performed By: #### C BC ####[facility] Rjwrsuuxhv5422 [place] [address]Dr. Devin Suresh Monocytes/100 WBC (Bld) 5.2 % Normal 1.7-12.0 [facility] Comment on above: Performed By: #### C BC ####[facility] Xracdbyvut8308 [place] [phone]. Devin Suresh NEUT # 6.0 103/ul Normal 1.4-6.5 [facility] Comment on above: Performed By: #### C BC ####[facility] Zogfpxnuub9871 [place] [phone]. Devin Suresh Neutrophils/100 WBC (Bld) 71.5 % Normal 43.0-75.0 [facility] Comment on above: Performed By: #### C BC ####[facility] Feceuhudis6938 [place] [phone]. Devin Suresh Platelet mean volume (Bld) [Entitic vol] 8.4 fL Critically low 9.5-13.5 [facility] Comment on above: Performed By: #### C BC ####[facility] Aiwheuonuo7679 [place] [phone]. Devin Suresh PLT 296 103/ul Normal 150-450 [facility] Comment on above: Performed By: #### C BC ####[facility] Mucmoxopcp5465 [place] [phone]. Devin Suresh RBC 4.16 106/ul Critically low 4.20-5.40 [facility] Comment on above: Performed By: #### C BC ####[facility] Llgxelfeai3598 [place] [phone]. Devin Suresh WBC 8.4 103/ul Normal 4.0-11.0 [facility] Comment on above: Performed By: #### C BC ####[facility] Qqnmjcpizt3479 [place] [phone] Suresh PROF 14(COMP METB)on 023 Albumin [Mass/Vol] 3.4 g/dL Normal 3.4-5.0 [facility] Comment on above: Performed By: #### C MP ####[facility] Qqvsxuegks7234 [place] [address]Dr. Devin Suresh Albumin/Globulin [Mass ratio] 1.0 {ratio} Normal [facility] Comment on above: Performed By: #### C MP ####[facility] Rvvbdfqbrv4828 [place] [address]Dr. Devin Suresh ALP [Catalytic activity/Vol] 108 U/L Normal 46-116 [facility] Comment on above: Performed By: #### C MP ####[facility] Bvnuffzwxm[address] [place], [place] [address]Dr. Devin Suresh ALT [Catalytic activity/Vol] 15 U/L Normal 14-59 [facility] Comment on above: Performed By: #### C MP ####[facility] Rwnszkzrmg[address] [place], [place] [address]Dr. Devin Suresh Anion gap [Moles/Vol] 14.6 mmol/L Normal [facility] Comment on above: Performed By: #### C MP ####[facility] Vxmathifnq630[address] [place], [place] [address]Dr. Devin Suresh AST [Catalytic activity/Vol] 11 U/L Critically low 15-37 [facility] Comment on above: Performed By: #### C MP ####[facility] Qdckspdpky200[address] [place], [place] [address]Dr. Devin Suresh Bilirubin [Mass/Vol] 0.4 mg/dL Normal 0.2-1.0 [facility] Comment on above: Performed By: #### C MP ####[facility] Hudajjoqzp314[address] [place], [place] [address]Dr. Devin Suresh Calcium [Mass/Vol] 8.8 mg/dL Normal 8.5-10.1 [facility] Comment on above: Performed By: #### C MP ####[facility] Zclfeldxnj148[address] [place], [place] [address]Dr. Devin Suresh Chloride [Moles/Vol] 104 mmol/L Normal 98-107 [facility] Comment on above: Performed By: #### C MP ####[facility] Avbaguvtpu2827 [place] [phone]. Devin Suresh CO2 [Moles/Vol] 24.2 mmol/L Normal 21.0-32.0 [facility] Comment on above: Performed By: #### C MP ####[facility] Opbnvqdipc9042 [place] [phone]. Devin Suresh Creatinine [Mass/Vol] 1.35 mg/dL Critically high 0.55-1.02 [facility] Comment on above: Performed By: #### C MP ####[facility] Beazybszcr9367 [place] [phone]. Devin Suresh EGFR-AF [place] 51 mL/min/1.73m2 Critically low >=60 [facility] Comment on above: Performed By: #### C MP ####[facility] Ovwkblaryp9850 [place] [address]Dr. Devin Suresh EGFR-NON AF [place] 42 mL/min/1.73m2 Critically low >=60 [facility] Comment on above: Performed By: #### C MP ####[facility] Jgrsntlmsp3718 [place] [address]Dr. Devin Suresh Globulin (S) [Mass/Vol] 3.5 g/dL Normal [facility] Comment on above: Performed By: #### C MP ####[facility] Pzanfuyxdz5705 [place] [address]Dr. Devin Suresh Glucose [Mass/Vol] 265 mg/dL Critically high 74-106 [facility] Comment on above: Performed By: #### C MP ####[facility] Zambjcedoh5024 [place] [phone]. Devin Suresh Potassium [Moles/Vol] 3.8 mmol/L Normal 3.5-5.1 [facility] Comment on above: Performed By: #### C MP ####[facility] Hyypajtpbz0489 [place] [phone]. Devin Suresh Protein [Mass/Vol] 6.9 g/dL Normal 6.4-8.2 [facility] Comment on above: Performed By: #### C MP ####[facility] Dpxkupbopa1660 [place] [address]Dr. Devin Suresh Sodium [Moles/Vol] 139 mmol/L Normal 136-145 [facility] Comment on above: Performed By: #### C MP ####[facility] Dntkvvvade1958 [place] [address]Dr. Devin Suresh Urea nitrogen [Mass/Vol] 23.0 mg/dL Critically high 7.0-18.0 [facility] Comment on above: Performed By: #### C MP ####[facility] Gpnwibatex[address] [place], [place] [address]Dr. Devin Kerwin Urea nitrogen/Creatinine [Mass ratio] 17.0 mg/mg Normal [facility] Comment on above: Performed By: #### C MP ####[facility] Rdtbdilmdx524[address] [place], [place] [address]Dr. Devin Kerwin CBC AUTO DIFFon 06-11-2022 BASO # 0.1 103/ul Normal 0.0-0.1 [facility] Comment on above: Performed By: #### C BC ####[facility] Enxeorwoov446[address] [place], [place] [address]Dr. Devin Kerwin Basophils/100 WBC (Bld) 0.7 % Normal 0.2-2.0 [facility] Comment on above: Performed By: #### C BC ####[facility] Niohwbmtce325[address] [place], [place] [address]Dr. Devin Kerwin EO # 0.2 103/ul Normal 0.0-0.7 [facility] Comment on above: Performed By: #### C BC ####[facility] Klrntfdlzf[address] [place], [place] [address]Dr. Devin Kerwin Eosinophils/100 WBC (Bld) 2.2 % Normal 0.9-7.0 [facility] Comment on above: Performed By: #### C BC ####[facility] Ccmwtpriit374[address] [place], [place] [address]Dr. Devin Kerwin Erythrocyte distribution width (RBC) [Ratio] 12.5 % Normal 11.0-15.0 [facility] Comment on above: Performed By: #### C BC ####[facility] Gbioxaraps4566 [place] [address]Dr. Devin Suresh Hematocrit (Bld) [Volume fraction] 40.2 % Normal 36.0-48.0 [facility] Comment on above: Performed By: #### C BC ####[facility] Njvajfmnch3258 [place] [address]Dr. Tishmeily Kerwin Hemoglobin (Bld) [Mass/Vol] 13.8 g/dL Normal 12.0-16.0 [facility] Comment on above: Performed By: #### C BC ####[facility] Jznbniybzk[address] [place], [place] [address]Dr. Devin Suresh IG # 0.03 10e3/ul Normal 0.00-0.03 [facility] Comment on above: Performed By: #### C BC ####[facility] Fgxjnbvjqo[address] [place], [place] [address]Dr. Devin Suresh IG % 0.3 % Normal 0.0-0.5 [facility] Comment on above: Performed By: #### C BC ####[facility] Akdqfpscsw[address] [place], [place] [address]Dr. Tishemily uSresh LYMPH # 2.7 103/ul Normal 1.2-3.8 [facility] Comment on above: Performed By: #### C BC ####[facility] Lidcbljfvs[address] [place], [place] [address]Dr. Devin Suresh Lymphocytes/100 WBC (Bld) 26.4 % Normal 20.5-60.0 [facility] Comment on above: Performed By: #### C BC ####[facility] Tyfvaenemu[address] [place], [place] [address]Dr. Devin Suresh MANUAL DIFF REQ NO Normal [facility] Comment on above: Performed By: #### C BC ####[facility] [address]zqlglhaal[address] [place] [address]Dr. Devin Suresh MCH (RBC) [Entitic mass] 30.0 pg Normal 26.7-34.0 [facility] Comment on above: Performed By: #### C BC ####[facility] Kcrhpnxplw4010 [place] [phone]. Devin Kerwin MCHC (RBC) [Mass/Vol] 34.3 g/dL Normal 29.9-35.2 [facility] Comment on above: Performed By: #### C BC ####[facility] Gccaxinnsr7296 [place] [phone] Suresh MCV (RBC) [Entitic vol] 87.4 fL Normal 81.0-99.0 [facility] Comment on above: Performed By: #### C BC ####[facility] [address] [place] [address]DrMaris Suresh MONO # 0.6 103/ul Normal 0.3-0.8 [facility] Comment on above: Performed By: #### C BC ####[facility] Fzcxstrsno[address] [place] [address]Dr. Devin uSresh Monocytes/100 WBC (Bld) 5.8 % Normal 1.7-12.0 [facility] Comment on above: Performed By: #### C BC ####[facility] M[address] [place], [place] [address]DrMaris Suresh NEUT # 6.7 103/ul Critically high 1.4-6.5 [facility] Comment on above: Performed By: #### C BC ####[facility] Onipsyehox[address] [place], [place] [address]DrMaris Suresh Neutrophils/100 WBC (Bld) 64.6 % Normal 43.0-75.0 [facility] Comment on above: Performed By: #### C BC ####[facility] [address] [place], [place] [id number] Suresh Platelet mean volume (Bld) [Entitic vol] 8.7 fL Critically low 9.5-13.5 [facility] Comment on above: Performed By: #### C BC ####[facility] Fmgcfxqafw[address] [place] [phone] Suresh PLT 345 103/ul Normal 150-450 [facility] Comment on above: Performed By: #### C BC ####[facility] Iocqhdiiyf[address] [place] [phone]. Devin Suresh RBC 4.60 106/ul Normal 4.20-5.40 [facility] Comment on above: Performed By: #### C BC ####[facility] Wofigfjjzj[address] [place] [phone]. Devin Suresh WBC 10.3 103/ul Normal 4.0-11.0 [facility] Comment on above: Performed By: #### C BC ####[facility] B[address]ldymv[address] [place] [phone]. Devin Suresh CT HEAD WO CONon 06-11-2022 CT HEAD WO CON Normal [facility] LACTATE/LACTIC ACIDon 2022 Lactate [Moles/Vol] 1.9 mmol/L Normal 0.4-1.9 [facility] Comment on above: Performed By: #### L ACT ####[facility] [address]grtnusc40[address] [place] [phone]. Devin Suresh POINT OF CARE GLUCOSEon 05-25 Glucose [Mass/Vol] 245 mg/dL Critically high 74-106 [facility] Comment on above: Performed By: #### P OCGLUC ####[facility] [address]fjpdi[address] [place] [phone]. Devin Suresh PROF 14(COMP METB)on 023 Albumin [Mass/Vol] 3.7 g/dL Normal 3.4-5.0 [facility] Comment on above: Performed By: #### C STU HSTROPN ####[facility] Slmitmstvx[address] [place] [phone]. Devin Suresh Albumin/Globulin [Mass ratio] 1.0 {ratio} Normal [facility] Comment on above: Performed By: #### C STU HSTROPN ####[facility] Rseytakmtk[address] [place] [phone]. Devin Suresh ALP [Catalytic activity/Vol] 123 U/L Critically high 46-116 [facility] Comment on above: Performed By: #### C STU, HSTROPN ####[facility] [address]nezcdx[address] [place] [address]Dr. Devin Suresh ALT [Catalytic activity/Vol] 15 U/L Normal 14-59 [facility] Comment on above: Performed By: #### C STU, HSTROPN ####[facility] Xpzwgvslne[address] [place] [address]Dr. Devin Suresh Anion gap [Moles/Vol] 12.7 mmol/L Normal [facility] [place] Comment on above: Performed By: #### C STU, HSTROPN ####[facility] [address]zdfzdrhsa[address] [place] [address]Dr. Devin Suresh AST [Catalytic activity/Vol] 11 U/L Critically low 15-37 [facility] Comment on above: Performed By: #### C STU, HSTROPN ####[facility] Umchzzglou[address] [place], [place] [address]Dr. Devin Suresh Bilirubin [Mass/Vol] 0.4 mg/dL Normal 0.2-1.0 [facility] Comment on above: Performed By: #### C STU, HSTROPN ####[facility] Vvxf[address]udmxz[address] [place], [place] [address]Dr. Devin Suresh Calcium [Mass/Vol] 9.5 mg/dL Normal 8.5-10.1 [facility] Comment on above: Performed By: #### C STU, HSTROPN ####[facility] [address]besg[address] [place] [address]Dr. Devin Suresh Chloride [Moles/Vol] 105 mmol/L Normal 98-107 [facility] Comment on above: Performed By: #### C STU, HSTROPN ####[facility] Bugpmwqyaz[address] [place] [address]Dr. Devin Suresh CO2 [Moles/Vol] 27.5 mmol/L Normal 21.0-32.0 [facility] Comment on above: Performed By: #### C STU, HSTROPN ####[facility] [address]uss[address]wruss[address] [place] [address]Dr. Devin Suresh Creatinine [Mass/Vol] 0.83 mg/dL Normal 0.55-1.02 [facility] Comment on above: Performed By: #### C STU, HSTROPN ####[facility] [address]wvqv[address] [place] [address]Dr. Devin Suresh EGFR-AF [place] >60 Normal >=60 [facility] Comment on above: Performed By: #### C STU, HSTROPN ####[facility] [address]jvqbuxaod34[address] [place] [address]Dr. Devin Suresh EGFR-NON AF [place] >60 Normal >=60 [facility] Comment on above: Performed By: #### C STU, HSTROPN ####[facility] Qyfuvozipg[address] [place] [address]Dr. Devin Suresh Globulin (S) [Mass/Vol] 3.7 g/dL Normal [facility] Comment on above: Performed By: #### C STU, HSTROPN ####[facility] Msvwgcltqq66[address] [place] [address]Dr. Devin Suresh Glucose [Mass/Vol] 66 mg/dL Critically low 74-106 [facility] [place] Comment on above: Performed By: #### C STU, HSTROPN ####[facility] Rirjtlvnox[address] [place] [address]Dr. Tishemily Suresh Potassium [Moles/Vol] 3.2 mmol/L Critically low 3.5-5.1 [facility] Comment on above: Performed By: #### C STU, HSTROPN ####[facility] Qsanvqnigh17[address] [place] [address]Dr. Devin Suresh Protein [Mass/Vol] 7.4 g/dL Normal 6.4-8.2 [facility] Comment on above: Performed By: #### C STU, HSTROPN ####[facility] Sfmyqmbbon[address] [place] [address]Dr. Tishemily Suresh Sodium [Moles/Vol] 142 mmol/L Normal 136-145 [facility] Comment on above: Performed By: #### C MP, HSTROPN ####[facility] C[address]cawinhs8[address] [place] [phone]. Devin Suresh Urea nitrogen [Mass/Vol] 15.0 mg/dL Normal 7.0-18.0 [facility] Comment on above: Performed By: #### C MP, HSTROPN ####[facility] Bjflpqydrc59[address] [place] [address]Dr. Devin Suresh Urea nitrogen/Creatinine [Mass ratio] 18.1 mg/mg Normal [facility] Comment on above: Performed By: #### C MP, HSTROPN ####[facility] Wy[address]dsozn[address] [place] [address]Dr. Devin Suresh TROPONIN, HIGH SENSITIVITYon 06-11-2022 HSTROP 5.5 pg/mL Normal 4.0-51.3 [facility] Comment on above: Result Comment: CUT- OFF POINTS HAVE BEEN ESTABLISHED BASED ON THE FOURTH UNIVERSAL DEFINITIONS OF MYOCARDIALINFARCTION. THE UPPER REFERENCE LIMIT (URL) OF TROPONIN, DEFINED THE 99TH PERCENTILE OFcTnI DISTRIBUTION IN A REFERENCE POPULATION, HAS BEEN CONFIRMED THE DECISION THRESHOLDFOR ND DIAGNOSIS. Performed By: #### H STROPN ####[facility] [address]rrw[address] [place], [place] [address]Dr. Devin Suresh HSTROP 5.1 pg/mL Normal 4.0-51.3 [facility] Comment on above: Result Comment: CUT- OFF POINTS HAVE BEEN ESTABLISHED BASED ON THE FOURTH UNIVERSAL DEFINITIONS OF MYOCARDIALINFARCTION. THE UPPER REFERENCE LIMIT (URL) OF TROPONIN, DEFINED THE 99TH PERCENTILE OFcTnI DISTRIBUTION IN A REFERENCE POPULATION, HAS BEEN CONFIRMED THE DECISION THRESHOLDFOR ND DIAGNOSIS. Performed By: #### C MP, HSTROPN ####[facility] [address]jpjddhjlx025[address] [place] [address]Dr. Devin Suresh XR CHEST 1 Von 06-11-2022 XR CHEST 1 V Normal [facility] CHEMISTRYOrdered By: Lab ROP User on 06-02-2022 Glucose [Mass/Vol] 269 mg/dL High 55 - 99 mg/dL [facility] POC Subsection Comment on above: Result Comment: Peter yeh RN/ POC Device SN [id number] Invalid Interpretation Code [facility] POC Subsection POC User ID [id number] Invalid Interpretation Code [facility] POC Subsection POC Username ANETTE MURO Invalid Interpretation Code [facility] POC Subsection Glucose [Mass/Vol] 378 mg/dL High 55 - 99 mg/dL [facility] POC Subsection Comment on above: Result Comment: Prema piper Meter POC Device SN [id number] Invalid Interpretation Code [facility] POC Subsection POC User ID [id number] Invalid Interpretation Code [facility] POC Subsection POC Username JANIE SCHERER Invalid Interpretation Code [facility] POC Subsection Glucose [Mass/Vol] 492 mg/dL Invalid Interpretation Code 55 - 99 mg/dL [facility] POC Subsection POC Device SN [id number] Invalid Interpretation Code [facility] POC Subsection POC User ID [id number] Invalid Interpretation Code [facility] POC Subsection POC Username RICEHEIDY VALENTINE Invalid Interpretation Code [facility] POC Subsection CHEMISTRYOrdered By: SYSTEM SYSTEM on 06-02-2022 Albumin [Mass/Vol] 3.8 g/dL Normal 3.3 - 5.0 gm/dL [facility] Remisol Albumin/Globulin [Mass ratio] 1.1 {ratio} Normal 1.1 - 2.2 [facility] ALP [Catalytic activity/Vol] 104 [iU]/d High 21 - 98 Int._Unit/L [facility] ALT No additional P-5'-P [Catalytic activity/Vol] 13 [iU]/d Normal 6 - 46 Int._Unit/L [facility] Anion gap [Moles/Vol] 15 mmol/L Normal 6 - 16 mEq/L [facility] AST [Catalytic activity/Vol] 11 [iU]/d Normal 5 - 43 Int._Unit/L [facility] Beta hydroxybutyrate [Moles/Vol] 0.55 mmol/L High 0.02 - 0.27 mmol/L [facility] Bilirubin [Mass/Vol] 1.0 mg/dL Normal 0.0 - 1 .1 mg/dL [facility] Bilirubin.direct [Mass/Vol] 0.2 mg/dL Normal 0.1 - 0.4 mg/dL [facility] Bilirubin.indirect [Mass or moles/Vol] 0.8 mg/dL Normal 0.1 - 0.9 mg/dL [facility] Calcium [Mass/Vol] 9.0 mg/dL Normal 8.9 - 11. 1 mg/dL [facility] Chloride [Moles/Vol] 94 mmol/L Low 101 - 1 11 mmol/L [facility] CO2 [Moles/Vol] 24 mmol/L Normal 21 - 31 mmol/L [facility] Creatinine [Mass/Vol] 0.8 mg/dL Normal 0.5 - 1.3 mg/dL [facility] GFR/1.73 sq M.predicted among blacks MDRD (S/P/Bld) [Vol rate/Area] mL/min/1.73 m2 Normal >=59mL/min/ 1.73 m2 [facility] Chem S GFR/1.73 sq M.predicted among non-blacks MDRD (S/P/Bld) [Vol rate/Area] mL/min/1.73 m2 Normal >=59mL/min/ 1.73 m2 [facility] Chem S Globulin (S) [Mass/Vol] 3.5 g/dL Normal 1.4 - 4.0 gm/dL [facility] Remisol Glucose [Mass/Vol] 484 mg/dL Invalid Interpretation Code 55 - 199 mg/dL [facility] Comment on above: Result Comment: Crit ical Result verified by repeat analysis\Critical Result [id number] Called to ELVIS DUNN AT by GLYNN BRYANT And Read Back For Confirmation at: 06/02/2022 17:16:15 Lipase [Catalytic activity/Vol] 27 U/L Normal 13 - 58 unit/L [facility] Potassium [Moles/Vol] 4.0 mmol/L Normal 3.5 - 5.3 mmol/L [facility] Protein [Mass/Vol] 7.3 g/dL Normal 6.0 - 7.8 gm/dL [facility] Sodium [Moles/Vol] 129 mmol/L Low 135 - 145 mmol/L [facility] Urea nitrogen [Mass/Vol] 16 mg/dL Normal 5 - 21 mg/dL [facility] Urea nitrogen/Creatinine [Mass ratio] 20 mg/mg Normal 10 - 20 [facility] COAGULATIONOrdered By: Arianne Hammond on 06-02-2022 aPTT Coag (PPP) [Time] 62.6 s High 25.1 - 36.5 second(s) [facility] Auto Coag INR Coag (PPP) [Relative time] 1.0 {INR} Invalid Interpretation Code [facility] Auto Coag PT Coag (PPP) [Time] 11.5 s Normal 9.4 - 1 2.5 second(s) [facility] Auto Coag HEMATOLOGYOrdered By: Guesty SYSTEM on 06-02-2022 Basophils/100 WBC (Bld) 0.7 % Normal 0.0 - 2.0 % [facility] HemeAutoSS Basophils/Leukocytes Auto (Bld) [Pure # fraction] 0.1 E9/L Normal 0.0 - 0.2 E9/L [facility] HemeAutoSS Eosinophils/100 WBC (Bld) 1.6 % Normal 0.0 - 8.0 % [facility] HemeAutoSS Eosinophils/Leukocyte s Auto (Bld) [Pure # fraction] 0.1 E9/L Normal 0.0 - 0.5 E9/L [facility] HemeAutoSS Lymphocytes/100 WBC (Bld) 19.7 % Normal 14.0 - 50.0 % [facility] HemeAutoSS Lymphocytes/Leukocyte s Auto (Bld) [Pure # fraction] 1.6 E9/L Normal 1.0 - 4.0 E9/L [facility] HemeAutoSS Monocytes/100 WBC (Bld) 5.7 % Normal 4.0 - 14.0 % [facility] HemeAutoSS Monocytes/Leukocytes Auto (Bld) [Pure # fraction] 0.5 E9/L Normal 0.2 - 1.0 E9/L [facility] HemeAutoSS Neutrophils/100 WBC (Bld) 72.3 % Normal 36.0 - 75.0 % [facility] HemeAutoSS Neutrophils/Leukocyte s Auto (Bld) [Pure # fraction] 5.8 E9/L Normal 2.0 - 7.5 E9/L [facility] HemeAutoSS HEMATOLOGYOrdered By: Eben Murphy on 06-02-2022 Erythrocyte distribution width (RBC) [Ratio] 13.4 % Normal 10.9 - 14.2 % [facility] HemeAutoSS Hematocrit (Bld) [Volume fraction] 37.8 % Normal 34.0 - 46.0 % [facility] HemeAutoSS Hemoglobin (Bld) [Mass/Vol] 12.8 g/dL Normal 12.0 - 16.0 gm/dL [facility] HemeAutoSS MCH (RBC) [Entitic mass] 30.3 pg Normal 27.0 - 34.0 pg [facility] HemeAutoSS MCHC (RBC) [Mass/Vol] 33.9 g/dL Normal 31.4 - 36.0 gm/dL [facility] HemeAutoSS MCV (RBC) [Entitic vol] 89.2 fL Normal 80.0 - 100.0 fL [facility] HemeAutoSS Platelet mean volume (Bld) [Entitic vol] 7.3 fL Normal 6.4 - 10.8 fL [facility] HemeAutoSS Platelets (Bld) [#/Vol] 281.0 E9/L Normal 150.0 - 500.0 E9/L [facility] HemeAutoSS RBC (Bld) [#/Vol] 4.2 E12/L Low 4.3 - 5.9 E12/L [facility] HemeAutoSS WBC corrected for nucl RBC Auto (Bld) [#/Vol] 8.0 E9/L Normal 4.0 - 11.0 E9/L [facility] HemeAutoSS URINALYSISOrdered By: Gigi Morrison on 06-02-2022 Bacteria LM Ql (Urine sed) Trace /HPF Normal Trace/HPF [facility] UA Auto SS Bilirubin Ql (U) Negative (06/02/22 6:10 PM) Normal Negative [facility] UA Auto SS Clarity (U) Slightly Cloudy *ABN* (06/02/22 6:10 PM) Invalid Interpretation Code Clear [facility] UA Auto SS Color (U) Straw *ABN* (06/02/22 6:10 PM) Invalid Interpretation Code Yellow [facility] UA Auto SS Epithelial cells.squamous LM.HPF (Urine sed) [#/Area] 0-2 /HPF Normal 0-2/HPF [facility] UA Aut o SS Glucose Test strip (U) [Mass/Vol] 3+ *ABN* (06/02/22 6:10 PM) Invalid Interpretation Code Negative [facility] UA Auto SS Hemoglobin Ql (U) Trace *ABN* (06/02/22 6:10 PM) Invalid Interpretation Code Negative [facility] UA Auto SS Ketones (U) [Mass/Vol] Trace *ABN* (06/02/22 6:10 PM) Invalid Interpretation Code Negative [facility] UA Auto SS [place].plasma/Lith[place] m.RBC (Bld) [Mass ratio] 0-3 /HPF Normal 0-3/HPF [facility] UA Auto SS Nitrite Ql (U) Negative (1/9/23 6:10 PM) Normal Negative [facility] UA Auto SS pH (U) 5.5 *NA* (06/02/22 6:10 PM) Invalid Interpretation Code 5.0 - 9.0 [facility] UA Auto SS Protein (U) [Mass/Vol] Negative (06/02/22 6:10 PM) Normal Negative [facility] UA Auto SS Specific gravity (U) [Rel density] 1.010 *NA* (06/02/22 6:10 PM) Invalid Interpretation Code 1.005 - 1.030 [facility] UA Auto SS UA Spec Desc Clean Catch (06/02/22 6:10 PM) Normal [facility] UA Auto SS Urobilinogen Qn (U) 0.3588742 {Sheyla'U}/dL Normal 0.0 - 1.0 EU/dL [facility] UA Auto SS WBC Auto Ql (U) Negative (06/02/22 6:10 PM) Normal Negative [facility] UA Auto SS WBC LM.HPF (Urine sed) [#/Area] 0-5 /HPF Normal 0-5/HPF [facility] UA Auto SS Yeast LM Ql (Urine sed) Trace (06/02/22 6:10 PM) Normal [facility] UA Auto SS CULTURE URINEon 04-23-2022 CULTURE URINE Normal [facility] Comment on above: Performed By: #### U RCX ####[facility] [address] [place] [address]Dr. Devin Kerwin POINT OF CARE GLUCOSEon 03-26 Glucose [Mass/Vol] 359 mg/dL Critically high 74-106 [facility] Comment on above: Performed By: #### P OCGLUC ####[facility] [address]gt[address] [place] [address]Dr. Devin Suresh AMYLASEon 04-20-2022 Amylase [Catalytic activity/Vol] 15 U/L Critically low 25-115 [facility] Comment on above: Performed By: #### L IPA, RADHA, CMP ####[facility] Hjtavkijme[address] [place] [address]Dr. Devin Suresh CBC AUTO DIFFon 04-20-2022 BASO # 0.0 103/ul Normal 0.0-0.1 [facility] Comment on above: Performed By: #### C BC ####[facility] [address]qmyi[address] [place] [id number]. Devin Suresh Basophils/100 WBC (Bld) 0.2 % Normal 0.2-2.0 [facility] Comment on above: Performed By: #### C BC ####[facility] [address] [place], [place] [address]Dr. Devin Suresh EO # 0.1 103/ul Normal 0.0-0.7 [facility] Comment on above: Performed By: #### C BC ####[facility] Lvkccjpydd39[address] [place] [address]Dr. Devin Suresh Eosinophils/100 WBC (Bld) 0.7 % Critically low 0.9-7.0 [facility] Comment on above: Performed By: #### C BC ####[facility] [address] [place], [place] [address]Dr. Devin Suresh Erythrocyte distribution width (RBC) [Ratio] 12.7 % Normal 11.0-15.0 [facility] Comment on above: Performed By: #### C BC ####[facility] Xbxdxtyodt[address] [place], [place] [address]Dr. Devin Suresh Hematocrit (Bld) [Volume fraction] 34.7 % Critically low 36.0-48.0 [facility] Comment on above: Performed By: #### C BC ####[facility] Earyvfcefv[address] [place], [place] [address]Dr. Devin Suresh Hemoglobin (Bld) [Mass/Vol] 12.1 g/dL Normal 12.0-16.0 [facility] Comment on above: Performed By: #### C BC ####[facility] Vbc[address]rqmur[address] [place], [place] [address]Dr. Devin Suresh IG # 0.05 10e3/ul Critically high 0.00-0.03 [facility] Comment on above: Performed By: #### C BC ####[facility] J[address]jt[address]in[address] [place], [place] [address]Dr. Devin Suresh IG % 0.4 % Normal 0.0-0.5 [facility] Comment on above: Performed By: #### C BC ####[facility] O[address]qpxvqv4[address] [place] [address]Dr. Devin Suresh LYMPH # 0.3 103/ul Critically low 1.2-3.8 [facility] Comment on above: Performed By: #### C BC ####[facility] U[address]otpkfe15[address] [place] [address]Dr. Devin Suresh Lymphocytes/100 WBC (Bld) 2.6 % Critically low 20.5-60.0 [facility] Comment on above: Performed By: #### C BC ####[facility] [address]rcwwkltq[address] [place] [address]Dr. Devin Suresh MANUAL DIFF REQ NO Normal [facility] Comment on above: Performed By: #### C BC ####[facility] Dsracmfcmz5[address] [place] [address]Dr. Devin Suresh MCH (RBC) [Entitic mass] 30.6 pg Normal 26.7-34.0 [facility] Comment on above: Performed By: #### C BC ####[facility] Ktxfsnlusv[address] [place] [address]Dr. Devin Suresh MCHC (RBC) [Mass/Vol] 34.9 g/dL Normal 29.9-35.2 [facility] Comment on above: Performed By: #### C BC ####[facility] I[address]cdmrzfn3[address] [place] [address]Dr. Devin Suresh MCV (RBC) [Entitic vol] 87.6 fL Normal 81.0-99.0 [facility] Comment on above: Performed By: #### C BC ####[facility] Unxqdzlros[address] [place] [address]Dr. Devin Suresh MONO # 0.3 103/ul Normal 0.3-0.8 [facility] Comment on above: Performed By: #### C BC ####[facility] Evrvwxagvz60[address] [place] [address]Dr. Devin Suresh Monocytes/100 WBC (Bld) 2.5 % Normal 1.7-12.0 [facility] Comment on above: Performed By: #### C BC ####[facility] M[address]oypudhc495[address] [place] [address]Dr. Devin Suresh NEUT # 11.9 103/ul Critically high 1.4-6.5 [facility] Comment on above: Performed By: #### C BC ####[facility] Z[address]ordotkt59[address] [place] [address]Dr. Devin Suresh Neutrophils/100 WBC (Bld) 93.6 % Critically high 43.0-75.0 [facility] Comment on above: Performed By: #### C BC ####[facility] Lnedbijbms[address]857 [place] [address]Dr. Devin Suresh Platelet mean volume (Bld) [Entitic vol] 9.2 fL Critically low 9.5-13.5 [facility] Comment on above: Performed By: #### C BC ####[facility] [address]tdttiqk[address] [place] [address]Dr. Devin Suresh PLT 288 103/ul Normal 150-450 [facility] Comment on above: Performed By: #### C BC ####[facility] [address]ec[address]al[address] [place] [address]Dr. Devin Suresh RBC 3.96 106/ul Critically low 4.20-5.40 [facility] Comment on above: Performed By: #### C BC ####[facility] Mpwjgwczcu30[address] [place] [address]Dr. Devin Suresh WBC 12.8 103/ul Critically high 4.0-11.0 [facility] Comment on above: Performed By: #### C BC ####[facility] Mrzrwtqcbk8914 [place] [phone]. Devin Suresh Covid-19 PCR ([facility])on 03-26 SARS-CoV-2 (COVID-19) RNA EBONIE+probe Ql (Unsp spec) Not detected Normal NOT DETECTED [facility] Comment on above: Result Comment: When diagnostic testing is negative, the possibility of a false negative should be considered inthe context of a patient's recent exposures and the presence of clinical signs and symptomsconsistent with SARS-CoV-2.This test is not yet approved or cleared by the [place] FDA. When there are no FDA-approved or cleared tests available, and other criteria are met, FDA can make tests available under an emergency access mechanism called an Emergency Use Authorization (EUA). The EUA for this test is supported by the Product Developer of Health and Human Service's declaration that circumstances exist to justify the emergency use of in vitro diagnostics for the detection and/or diagnosis of the virus that causes COVID-19. This EUA will remain in effect for the duration of the COVID-19 declaration justifying emergency of IVDs, unless it is terminated or revoked by the FDA (after which the test may no longer be used). Performed By: #### Isabell DUGAN ####[facility] [address] [place], [place] [address]Dr. Devin Suresh ER URINE PROFILEon 2 Bilirubin Ql (U) Negative Normal NEGATIVE [facility] Comment on above: Performed By: #### CHUCKY STARR ####[facility] Smzwkyiyss[address] [place], [place] [address]Dr. Devin Suresh Clarity (U) CLEAR Normal CLEAR [facility] Comment on above: Performed By: #### CHUCKY STARR ####[facility] [address] [place], [place] [address]Dr. Devin Suresh Color (U) LT. YELLOW Normal YELLOW [facility] Comment on above: Performed By: #### CHUCKY STARR ####[facility] Almvlidwod[address] [place], [place] [address]Dr. Devin Suresh ERUAHD A micrscopic examina tion will be performed if indicated. Normal [facility] Comment on above: Performed By: #### CHUCKY STARR ####[facility] [address]ijnp[address] [place], [place] [address]Dr. Devin Suresh Glucose Ql (U) >1000 Abnormal NEGATIVE [facility] Comment on above: Performed By: #### CHUCKY STARR ####[facility] [address]ixrvpo[address] [place], [place] [address]Dr. Devin Suresh Hemoglobin Ql (U) TRACE-INTACT Abnormal NEGATIVE [facility] Comment on above: Performed By: #### REAGAN STARRRO ####[facility] Rpfngbmqri[address] [place] [address]Dr. Devin Suresh Ketones Ql (U) TRACE Abnormal NEGATIVE [facility] Comment on above: Performed By: #### GEORGE STARRICRO ####[facility] Srmzrhtdsx[address] [place] [address]Dr. Devin Suresh LEUKOCYTES Negative Normal NEGATIVE [facility] Comment on above: Performed By: #### GEORGE STARRICRO ####[facility] D[address]ecowcgj[address] [place], [place] [address]Dr. Devin Suresh Nitrite Ql (U) Positive Abnormal NEGATIVE [facility] Comment on above: Performed By: #### REAGAN STARRRO ####[facility] C[address]ygadterv[address] [place], [place] [address]Dr. Devin Suresh pH (U) 5.0 [pH] Normal 5-9 [facility] Comment on above: Performed By: #### GEORGE STARRICRO ####[facility] [address]mcwnwtr[address] [place], [place] [address]Dr. Devin Suresh SPEC GRAVITY 1.015 Normal 1.005-<=1.0 25 [facility] Comment on above: Performed By: #### GEORGE STARRICRO ####[facility] [address]hpx[address] [place], [place] [address]Dr. Devin Suresh UA PROTEIN Negative Normal NEGATIVE/ TRACE [facility] Comment on above: Performed By: #### GEORGE STARRICRO ####[facility] Gyvlxlmknv[address] [place], [place] [address]Dr. Devin Suresh UR MICRO IND INDICATED Normal [facility] [facility] Comment on above: Performed By: #### Bud ALLEN UMICRO ####[facility] Zpefqnkswe[address] [place], [place] [address]Dr. Devin Suresh Urobilinogen Qn (U) 0.2 {Sheyla'U}/dL Normal 0.2 - 1. 0 [facility] Comment on above: Performed By: #### E RUREAGAN LazcanoRO ####[facility] Oqmkyuvsp[address] [place], [place] [address]Dr. Devin Suresh INFLUENZA A AND B AGon 04-20 INFLUENZA A AG Negative Normal NEGATIVE SEE COMMENT [facility] Comment on above: Performed By: #### R SV, INFLUAB ####[facility] Wxqilfizwy[address] [place], [place] [address]Dr. Devin Suresh INFLUENZA B AG Negative Normal NEGATIVE SEE COMMENT [facility] Comment on above: Performed By: #### R SV, INFLUAB ####[facility] Lriqcwrqbk[address] [place], [place] [address]Dr. Devin [facility] INFLUPOSH SEE BELOW Normal [facility] Comment on above: Result Comment: NOTE : Live attenuated influenzae vaccine viruses can cause a positive result for a rapid influenza diagnostic test if administered up to 7 days prior to rapid testing. Performed By: #### R SV, INFLUAB ####[facility] R[address]puwwuxae[address] [place], [place] [address]Dr. Devin Suresh INFLUPOSHB SEE BELOW Normal [facility] Comment on above: Result Comment: NOTE : Live attenuated influenzae vaccine viruses can cause a positive result for a rapid influenza diagnostic test if administered up to 7 days prior to rapid testing. Performed By: #### R SV, INFLUAB ####[facility] X[address] [place], [place] [address]Dr. Devin Suresh INTERNAL CONTROLS Within Normal Limits Normal Wi thin Normal Limits [facility] Comment on above: Performed By: #### R SV, INFLUAB ####[facility] [address] [place], [place] [address]Dr. Devin Suresh LACTATE/LACTIC ACIDon 2021 Lactate [Moles/Vol] 1.9 mmol/L Normal 0.4-1.9 [facility] Comment on above: Performed By: #### L ACT ####[facility] Slpeodgcrd[address] [place], [place] [address]Dr. Devin Suresh LIPASEon 04-20-2022 Lipase [Catalytic activity/Vol] 111.0 U/L Normal 73.0-393.0 [facility] Comment on above: Performed By: #### L RADHA DELAROSA, CMP ####[facility] [address] [place] [address]Dr. Devin Suresh POINT OF CARE GLUCOSEon 03-26 Glucose [Mass/Vol] 573 mg/dL Critically high 74-106 [facility] Comment on above: Result Comment: Lab Draw Ordered Performed By: #### P OCGLUC ####[facility] [address] [place] [address]Dr. Devin Suresh PROF 14(COMP METB)on 022 Albumin [Mass/Vol] 3.4 g/dL Normal 3.4-5.0 [facility] Comment on above: Performed By: #### L RADHA DELAROSA, CMP ####[facility] [address] [place] [address]Dr. Devin Suresh Albumin/Globulin [Mass ratio] 0.9 {ratio} Normal [facility] Comment on above: Performed By: #### L RADHA DELAROSA, CMP ####[facility] [address] [place] [address]Dr. Devin Suresh ALP [Catalytic activity/Vol] 132 U/L Critically high 46-116 [facility] Comment on above: Performed By: #### L RADHA DELAROSA, CMP ####[facility] Q[address]ctsnbu[address] [place] [address]Dr. Devin Suresh ALT [Catalytic activity/Vol] 16 U/L Normal 14-59 [facility] Comment on above: Performed By: #### L RADHA DELAROSA, CMP ####[facility] [address] [place] [address]Dr. Devin Suresh Anion gap [Moles/Vol] 12.3 mmol/L Normal [facility] Comment on above: Performed By: #### L RADHA DELAROSA, CMP ####[facility] [address]pr[address] [place] [address]Dr. Devin Suresh AST [Catalytic activity/Vol] 9 U/L Critically low 15-37 [facility] Comment on above: Performed By: #### L RADHA DELAROSA, CMP ####[facility] [address]zqus[address] [place] [address]Dr. Devin Suresh Bilirubin [Mass/Vol] 0.9 mg/dL Normal 0.2-1.0 [facility] Comment on above: Performed By: #### L IPARADHA, CMP ####[facility] [address]irt[address] [place] [address]Dr. Devin Suresh Calcium [Mass/Vol] 9.0 mg/dL Normal 8.5-10.1 [facility] Comment on above: Performed By: #### L IPA RADHA, CMP ####[facility] [address]imtevssd[address] [place], [place] [address]Dr. Devin Suresh Chloride [Moles/Vol] 96 mmol/L Critically low 98-107 [facility] Comment on above: Performed By: #### L W[place] RADHA, CMP ####[facility] Onswsmvtgm437[address] [place], [place] [address]Dr. Devin Suresh CO2 [Moles/Vol] 26.0 mmol/L Normal 21.0-32.0 [facility] Comment on above: Performed By: #### L RADHA DELAROSA, CMP ####[facility] Slasuljvng[address] [place], [place] [address]Dr. Devin Kerwin Creatinine [Mass/Vol] 1.15 mg/dL Critically high 0.55-1.02 [facility] Comment on above: Performed By: #### L [place] RADHA, CMP ####[facility] S[address]wmamnbyg[address] [place], [place] [address]Dr. Devin Kerwin EGFR-AF [place] >60 Normal >=60 [facility] Comment on above: Performed By: #### L IPARADHA, CMP ####[facility] Tfolmqmpot[address] [place], [place] [address]Dr. Tishemily Kerwin EGFR-NON AF [place] 51 mL/min/1.73m2 Critically low >=60 [facility] Comment on above: Performed By: #### L IPA RADHA, CMP ####[facility] Gmviiqhfdi[address] [place], [place] [address]Dr. Devin Suresh Globulin (S) [Mass/Vol] 3.7 g/dL Normal [facility] Comment on above: Performed By: #### L RADHA DELAROSA, CMP ####[facility] [address]elcia[address] [place] [address]Dr. Devin Suresh Glucose [Mass/Vol] 590 mg/dL Critically high 74-106 [facility] Comment on above: Performed By: #### L RADHA DELAROSA, CMP ####[facility] [address]zrz[address] [place] [address]Dr. Devin Suresh Potassium [Moles/Vol] 4.3 mmol/L Normal 3.5-5.1 [facility] Comment on above: Performed By: #### L RADHA DELAROSA, CMP ####[facility] [address]umqzko[address] [place] [address]Dr. Devin Suresh Protein [Mass/Vol] 7.1 g/dL Normal 6.4-8.2 [facility] Comment on above: Performed By: #### L RADHA DELAROSA, CMP ####[facility] [address]elzc[address] [place] [address]Dr. Devin Suresh Sodium [Moles/Vol] 130 mmol/L Critically low 136-145 [facility] [place] Comment on above: Performed By: #### L RADHA DELAROSA, CMP ####[facility] V[address]dlhn[address] [place] [address]Dr. Devin Suresh Urea nitrogen [Mass/Vol] 22.0 mg/dL Critically high 7.0-18.0 [facility] Comment on above: Performed By: #### L RADHA DELAROSA, CMP ####[facility] [address] [place] [address]Dr. Devin Suresh Urea nitrogen/Creatinine [Mass ratio] 19.1 mg/mg Normal [facility] Comment on above: Performed By: #### L RADHA DELAROSA, CMP ####[facility] [address]qu[address] [place] [address]Dr. Devin Suresh RSVon 04-20-2022 RSV AG Negative Normal NEGATIVE [facility] Comment on above: Performed By: #### R SV, INFLUAB ####[facility] G[address]apsvbdn[address] [place], [place] [address]Dr. Devin Suresh URINE MICROSCOPIC ONLYon BACTERIA MODERATE Abnormal NONE SEEN [facility] Comment on above: Performed By: #### CHUCKY STARR ####[facility] [address] [place] [address]Dr. Devin Suresh Bacteria identified Cx Nom (U) INDICATED Normal [facility] Comment on above: Performed By: #### REAGAN STARRRO ####[facility] Qgksktkyed[address] [place], [place] [address]Dr. Devin Suresh CAST NONE SEEN Normal NONE SEEN [facility] Comment on above: Performed By: #### CHUCKY STARR ####[facility] Ewubqtjqnl[address] [place], [place] [address]Dr. Devin Suresh Crystals LM Nom (Urine sed) NONE SEEN Normal NONE SEEN [facility] Comment on above: Performed By: #### REAGAN STARRRO ####[facility] Rjpdrnqcab[address] [place], [place] [address]Dr. Devin Suresh Epithelial cells LM Ql (Urine sed) RARE Normal NONE SEEN /RARE [facility] Comment on above: Performed By: #### CHUCKY STARR ####[facility] [address]xqmxudzp[address] [place], [place] [address]Dr. Devin Suresh MUCOUS NONE SEEN Normal NONE SEEN [facility] Comment on above: Performed By: #### REAGAN STARRRO ####[facility] [address]zexrjeted[address] [place], [place] [address]Dr. Devin Suresh RBC NONE SEEN Abnormal 0-2 [facility] Comment on above: Performed By: #### REAGAN STARRRO ####[facility] Nbidnbdell[address] [place], [place] [address]Dr. Devin Suresh WBC 2-5 Abnormal NONE SEEN [facility] Comment on above: Performed By: #### REAGAN STARRRO ####[facility] Uax[address]fxrzo[address] [place], [place] [address]Dr. Devin Suresh XR CHEST 2 Von 04-20-2022 XR CHEST 2 V Normal [facility] CHEMISTRYOrdered By: Lab ROP User on 04-09-2022 Glucose [Mass/Vol] 105 mg/dL High 55 - 99 mg/dL [facility] Comment on above: Result Comment: Peter rao RN/ POC Device SN [id number] Invalid Interpretation Code [facility] POC Subsection POC User ID [id number] Invalid Interpretation Code [facility] POC Subsection POC Username Michi Huynh Invalid Interpretation Code [facility] POC Subsection Glucose [Mass/Vol] 50 mg/dL Low 55 - 99 mg/dL [facility] POC Subsection Comment on above: Result Comment: Peter yeh RN/ POC Device SN [id number] Invalid Interpretation Code [facility] POC Subsection POC User ID [id number] Invalid Interpretation Code [facility] POC Subsection POC Username BiggpiotrMichi bull Invalid Interpretation Code [facility] POC Subsection Glucose [Mass/Vol] 53 mg/dL Low 55 - 99 mg/dL [facility] POC Subsection Comment on above: Result Comment: Peter yeh RN/ POC Device SN [id number] Invalid Interpretation Code [facility] POC Subsection POC User ID [id number] Invalid Interpretation Code [facility] POC Subsection POC Username Michi Huynh Invalid Interpretation Code [facility] POC Subsection CHEMISTRYOrdered By: SYSTEM SYSTEM on 04-08-2022 Anion gap [Moles/Vol] 4 mmol/L Low 6 - 16 mEq/L [facility] Calcium [Mass/Vol] 8.5 mg/dL Low 8.9 - 11. 1 mg/dL [facility] Chloride [Moles/Vol] 112 mmol/L High 101 - 1 11 mmol/L [facility] CO2 [Moles/Vol] 25 mmol/L Normal 21 - 31 mmol/L [facility] Creatinine [Mass/Vol] 1.1 mg/dL Normal 0.5 - 1.3 mg/dL [facility] Remisol GFR/1.73 sq M.predicted among blacks MDRD (S/P/Bld) [Vol rate/Area] mL/min/1.73 m2 Normal >=59mL/min/ 1.73 m2 [facility] Chem S GFR/1.73 sq M.predicted among non-blacks MDRD (S/P/Bld) [Vol rate/Area] 54 mL/min/1.73 m2 Low >=59mL/min/ 1.73 m2 [facility] Chem S Glucose [Mass/Vol] 122 mg/dL Normal 55 - 199 mg/dL [facility] Magnesium [Mass/Vol] 2.6 mg/dL High 1.3 - 2 .4 mg/dL [facility] Potassium [Moles/Vol] 3.7 mmol/L Normal 3.5 - 5.3 mmol/L [facility] Sodium [Moles/Vol] 137 mmol/L Normal 135 - 145 mmol/L [facility] Urea nitrogen [Mass/Vol] 27 mg/dL High 5 - 21 mg/dL [facility] Urea nitrogen/Creatinine [Mass ratio] 24 mg/mg High 10 - 20 [facility] Remisol CHEMISTRYOrdered By: SYSTEM SYSTEM on 04-07-2022 Anion gap [Moles/Vol] 11 mmol/L Normal 6 - 16 mEq/L [facility] Remisol Calcium [Mass/Vol] 8.8 mg/dL Low 8.9 - 11. 1 mg/dL [facility] Remisol Chloride [Moles/Vol] 102 mmol/L Normal 101 - 1 11 mmol/L [facility] Remisol CO2 [Moles/Vol] 22 mmol/L Normal 21 - 31 mmol/L [facility] Remisol Creatinine [Mass/Vol] 1.0 mg/dL Normal 0.5 - 1.3 mg/dL [facility] Remisol GFR/1.73 sq M.predicted among blacks MDRD (S/P/Bld) [Vol rate/Area] mL/min/1.73 m2 Normal >=59mL/min/ 1.73 m2 [facility] Chem S GFR/1.73 sq M.predicted among non-blacks MDRD (S/P/Bld) [Vol rate/Area] 60 mL/min/1.73 m2 Normal >=59mL/min/ 1.73 m2 [facility] Chem S Glucose [Mass/Vol] 372 mg/dL High 55 - 199 mg/dL [facility] Remisol Potassium [Moles/Vol] 4.4 mmol/L Normal 3.5 - 5.3 mmol/L [facility] Remisol Sodium [Moles/Vol] 131 mmol/L Low 135 - 145 mmol/L [facility] Remisol Urea nitrogen [Mass/Vol] 19 mg/dL Normal 5 - 21 mg/dL [facility] Remisol Urea nitrogen/Creatinine [Mass ratio] 19 mg/mg Normal 10 - 20 [facility] Remisol 25-hydroxyvitamin D3 [Mass/Vol] 8.1 ng/mL Low 30.0 - 100.0 ng/mL [facility] Remisol Albumin [Mass/Vol] 3.4 g/dL Normal 3.3 - 5.0 gm/dL [facility] Remisol Albumin/Globulin [Mass ratio] 1.1 {ratio} Normal 1.1 - 2.2 [facility] ALP [Catalytic activity/Vol] 93 [iU]/d Normal 21 - 98 Int._Unit/L [facility] Remisol ALT No additional P-5'-P [Catalytic activity/Vol] 14 [iU]/d Normal 6 - 46 Int._Unit/L [facility] Remisol Anion gap [Moles/Vol] 18 mmol/L High 6 - 16 mEq/L [facility] AST [Catalytic activity/Vol] 12 [iU]/d Normal 5 - 43 Int._Unit/L [facility] Bilirubin [Mass/Vol] 0.8 mg/dL Normal 0.0 - 1 .1 mg/dL [facility] Remisol Bilirubin.direct [Mass/Vol] 0.2 mg/dL Normal 0.1 - 0.4 mg/dL [facility] Remisol Bilirubin.indirect [Mass or moles/Vol] 0.6 mg/dL Normal 0.1 - 0.9 mg/dL [facility]isol Calcium [Mass/Vol] 8.7 mg/dL Low 8.9 - 11. 1 mg/dL [facility] Chloride [Moles/Vol] 100 mmol/L Low 101 - 1 11 mmol/L [facility] CO2 [Moles/Vol] 19 mmol/L Low 21 - 31 mmol/L [facility] Remisol Creatinine [Mass/Vol] 0.9 mg/dL Normal 0.5 - 1.3 mg/dL [facility] Remisol GFR/1.73 sq M.predicted among blacks MDRD (S/P/Bld) [Vol rate/Area] mL/min/1.73 m2 Normal >=59mL/min/ 1.73 m2 [facility] Chem S GFR/1.73 sq M.predicted among non-blacks MDRD (S/P/Bld) [Vol rate/Area] mL/min/1.73 m2 Normal >=59mL/min/ 1.73 m2 [facility] Chem S Globulin (S) [Mass/Vol] 3.2 g/dL Normal 1.4 - 4.0 gm/dL [facility] Glucose [Mass/Vol] 419 mg/dL High 55 - 199 mg/dL [facility] Lipase [Catalytic activity/Vol] 22 U/L Normal 13 - 58 unit/L [facility] Magnesium [Mass/Vol] 1.5 mg/dL Normal 1.3 - 2 .4 mg/dL [facility] Phosphate [Mass/Vol] 3.7 mg/dL Normal 1.9 - 4 .6 mg/dL [facility] Potassium [Moles/Vol] 4.2 mmol/L Normal 3.5 - 5.3 mmol/L [facility] Protein [Mass/Vol] 6.6 g/dL Normal 6.0 - 7.8 gm/dL [facility] Sodium [Moles/Vol] 133 mmol/L Low 135 - 145 mmol/L [facility] Remisol Urea nitrogen [Mass/Vol] 19 mg/dL Normal 5 - 21 mg/dL [facility] Remisol Urea nitrogen/Creatinine [Mass ratio] 21 mg/mg High 10 - 20 [facility] Remisol Beta hydroxybutyrate [Moles/Vol] 0.51 mmol/L High 0.02 - 0.27 mmol/L [facility] Remisol CHEMISTRYOrdered By: Don Montes on 04-07-2022 HbA1c (Bld) [Mass fraction] 9.7 % High <=5.9% [facility] ChemAutoSS CHEMISTRYOrdered By: Mary Lou Salas on 04-06-2022 Natriuretic peptide B (Bld) [Mass/Vol] 11 pg/mL Normal 5 - 80 pg/mL [facility] HemeManSS CHEMISTRYOrdered By: SYSTEM SYSTEM on 04-06-2022 Troponin I.cardiac [Mass/Vol] 4.50 pg/mL Low 10.10 - 27.10 pg/mL [facility] Remisol HEMATOLOGYOrdered By: SYSTEM SYSTEM on 04-06-2022 Basophils/100 WBC (Bld) 1.6 % Normal 0.0 - 2.0 % [facility] HemeAutoSS Basophils/Leukocytes Auto (Bld) [Pure # fraction] 0.1 E9/L Normal 0.0 - 0.2 E9/L [facility] HemeAutoSS Eosinophils/100 WBC (Bld) 2.2 % Normal 0.0 - 8.0 % [facility] HemeAutoSS Eosinophils/Leukocyte s Auto (Bld) [Pure # fraction] 0.1 E9/L Normal 0.0 - 0.5 E9/L [facility] HemeAutoSS Lymphocytes/100 WBC (Bld) 23.2 % Normal 14.0 - 50.0 % [facility] HemeAutoSS Lymphocytes/Leukocyte s Auto (Bld) [Pure # fraction] 1.3 E9/L Normal 1.0 - 4.0 E9/L [facility] HemeAutoSS Monocytes/100 WBC (Bld) 6.0 % Normal 4.0 - 14.0 % [facility] HemeAutoSS Monocytes/Leukocytes Auto (Bld) [Pure # fraction] 0.3 E9/L Normal 0.2 - 1.0 E9/L [facility] HemeAutoSS Neutrophils/100 WBC (Bld) 67.0 % Normal 36.0 - 75.0 % [facility] HemeAutoSS Neutrophils/Leukocyte s Auto (Bld) [Pure # fraction] 3.8 E9/L Normal 2.0 - 7.5 E9/L [facility] HemeAutoSS HEMATOLOGYOrdered By: Donna Salas on 04-06-2022 Erythrocyte distribution width (RBC) [Ratio] 13.6 % Normal 10.9 - 14.2 % [facility] HemeAutoSS Hematocrit (Bld) [Volume fraction] 38.9 % Normal 34.0 - 46.0 % [facility] HemeAutoSS Hemoglobin (Bld) [Mass/Vol] 13.3 g/dL Normal 12.0 - 16.0 gm/dL [facility] HemeAutoSS MCH (RBC) [Entitic mass] 30.2 pg Normal 27.0 - 34.0 pg [facility] HemeAutoSS MCHC (RBC) [Mass/Vol] 34.2 g/dL Normal 31.4 - 36.0 gm/dL [facility] HemeAutoSS MCV (RBC) [Entitic vol] 88.1 fL Normal 80.0 - 100.0 fL [facility] HemeAutoSS Platelet mean volume (Bld) [Entitic vol] 7.3 fL Normal 6.4 - 10.8 fL [facility] HemeAutoSS Platelets (Bld) [#/Vol] 279.0 E9/L Normal 150.0 - 500.0 E9/L [facility] HemeAutoSS RBC (Bld) [#/Vol] 4.4 E12/L Normal 4.3 - 5.9 E12/L [facility] HemeAutoSS WBC corrected for nucl RBC Auto (Bld) [#/Vol] 5.7 E9/L Normal 4.0 - 11.0 E9/L [facility] HemeAutoSS No Panel InformationOrdered By: ANGPROCESSSERVER MICROBIOLOGY on 04-06-2022 Blood Culture Charcoal No growth at 2 days. Final to follow at 7 days. [facility] CT STROKE HEAD WOon 03-31-20 CT STROKE HEAD WO Normal [facility] POINT OF CARE GLUCOSEon Glucose [Mass/Vol] 178 mg/dL Critically high 74-106 T [facility] Comment on above: Performed By: #### P OCGLUC ####[facility] [address]ewpp[address] [place], [place] [address]Dr. Devin Suresh XR CHEST 1 Von 03-31-2022 XR CHEST 1 V Normal [facility] CBC AUTO DIFFon 03-05-2022 BASO # 0.0 103/ul Normal 0.0-0.1 [facility] Comment on above: Performed By: #### C BC ####[facility] Sbrthismjv[address] [place], [place] [address]Dr. Devin Suresh Basophils/100 WBC (Bld) 0.2 % Normal 0.2-2.0 [facility] Comment on above: Performed By: #### C BC ####[facility] [address]uyrsq[address] [place], [place] [address]Dr. Devin Suresh EO # 0.0 103/ul Normal 0.0-0.7 [facility] Comment on above: Performed By: #### C BC ####[facility] A[address]hqqwk[address] [place], [place] [address]Dr. Devin Suresh Eosinophils/100 WBC (Bld) 0.1 % Critically low 0.9-7.0 [facility] Comment on above: Performed By: #### C BC ####[facility] Udbxjulzmp330[address] [place], [place] [address]Dr. Devin Suresh Erythrocyte distribution width (RBC) [Ratio] 13.0 % Normal 11.0-15.0 [facility] Comment on above: Performed By: #### C BC ####[facility] [address]xz[address] [place] [address]Dr. Devin Suresh Hematocrit (Bld) [Volume fraction] 35.3 % Critically low 36.0-48.0 [facility] Comment on above: Performed By: #### C BC ####[facility] Xpdzjpljhw[address] [place], [place] [address]Dr. Devin Suresh Hemoglobin (Bld) [Mass/Vol] 11.9 g/dL Critically low 12.0-16.0 [facility] Comment on above: Performed By: #### C BC ####[facility] Unmyyijgwn225[address] [place], [place] [address]Dr. Devin Suresh IG # 0.09 10e3/ul Critically high 0.00-0.03 [facility] Comment on above: Performed By: #### C BC ####[facility] Qhotupuoiz355[address] [place], [place] [address]Dr. Tishemily Suresh IG % 0.7 % Critically high 0.0-0.5 [facility] Comment on above: Performed By: #### C BC ####[facility] C[address]wtmrcnfb[address] [place], [place] [address]DrMaris Suresh LYMPH # 2.3 103/ul Normal 1.2-3.8 [facility] Comment on above: Performed By: #### C BC ####[facility] S[address]ajq[address] [place], [place] [address]DrMaris Tishemily Suresh Lymphocytes/100 WBC (Bld) 17.3 % Critically low 20.5-60.0 [facility] Comment on above: Performed By: #### C BC ####[facility] Kqfrtlbzbw[address] [place], [place] [address]DrMaris Suresh MANUAL DIFF REQ NO Normal [facility] Comment on above: Performed By: #### C BC ####[facility] Rxnhkxbbuf673[address] [place], [place] [address]DrMaris Suresh MCH (RBC) [Entitic mass] 30.9 pg Normal 26.7-34.0 [facility] Comment on above: Performed By: #### C BC ####[facility] [address]ffpgww[address] [place] [address]Dr. Devin Kerwin MCHC (RBC) [Mass/Vol] 33.7 g/dL Normal 29.9-35.2 [facility] Comment on above: Performed By: #### C BC ####[facility] Sc[address]apjwocz174[address] [place], [place] [address]Dr. Devin Suresh MCV (RBC) [Entitic vol] 91.7 fL Normal 81.0-99.0 [facility] Comment on above: Performed By: #### C BC ####[facility] Q[address]awomrwff[address] [place], [place] [address]DrMaris Suresh MONO # 0.6 103/ul Normal 0.3-0.8 [facility] Comment on above: Performed By: #### C BC ####[facility] [address]zpigj[address] [place], [place] [address]Dr. Devin Suresh Monocytes/100 WBC (Bld) 4.6 % Normal 1.7-12.0 [facility] Comment on above: Performed By: #### C BC ####[facility] [address] [place], [place] [address]DrMaris Surseh NEUT # 10.2 103/ul Critically high 1.4-6.5 [facility] Comment on above: Performed By: #### C BC ####[facility] Cqushtkenk[address] [place], [place] [address]DrMaris Suresh Neutrophils/100 WBC (Bld) 77.1 % Critically high 43.0-75.0 [facility] Comment on above: Performed By: #### C BC ####[facility] C[address]ovwihmu[address] [place], [place] [address]DrMaris Suresh Platelet mean volume (Bld) [Entitic vol] 9.4 fL Critically low 9.5-13.5 [facility] Comment on above: Performed By: #### C BC ####[facility] [address] [place] [id number]. Devin Suresh PLT 382 103/ul Normal 150-450 [facility] Comment on above: Performed By: #### C BC ####[facility] [address] [place] [id number]. Devin Suresh RBC 3.85 106/ul Critically low 4.20-5.40 [facility] Comment on above: Performed By: #### C BC ####[facility] [address] [place] [id number]. Devin Suresh WBC 13.2 103/ul Critically high 4.0-11.0 [facility] Comment on above: Performed By: #### C BC ####[facility] [address]zz[address] [place] [address]Dr. Devin Suresh CT HEAD WO CONon 03-05-2022 CT HEAD WO CON Normal [facility] CTA HEAD WO W CONon 03-05-20 CTA HEAD WO W CON Normal [facility] GLYCOHEMOGLOBIN A1Con 2021 ADA RECOMMENDATION SEE BELOW Normal [facility] Comment on above: Result Comment: ADA RECOMMENDED LIMIT 4.0 - 6.0 ADA THERAPEUTIC TARGET < 7.0 ACTION SUGGESTED > 7.0 Performed By: #### A 1C ####[facility] [address] [place] [address]Dr. Devin Suresh Glucose [Mass/Vol] 249 mg/dL Normal [facility] Comment on above: Performed By: #### A 1C ####[facility] [address] [place] [address]Dr. Devin Suresh HbA1c (Bld) [Mass fraction] 10.3 % Critically high 4.5-6.2 [facility] Comment on above: Performed By: #### A 1C ####[facility] [address] [place] [address]Dr. Devin Suresh POINT OF CARE GLUCOSEon 02-22 Glucose [Mass/Vol] 276 mg/dL Critically high 74-106 [facility] Comment on above: Performed By: #### P OCGLUC ####[facility] [address]ogwsvpgou[address] [place] [address]Dr. Devin Suresh Glucose [Mass/Vol] 209 mg/dL Critically high 74-106 [facility] Comment on above: Performed By: #### P OCGLUC ####[facility] Qzbdtyovmr[address] [place], [place] [address]Dr. Devin Suresh Glucose [Mass/Vol] 286 mg/dL Critically high 74-106 [facility] Comment on above: Performed By: #### P OCGLUC ####[facility] Yccrmyptby[address] [place], [place] [address]Dr. Devin Suresh PROF 14(COMP METB)on 022 Albumin [Mass/Vol] 2.9 g/dL Critically low 3.4-5.0 [facility] Comment on above: Performed By: #### C MP ####[facility] Cafstpwcos[address] [place], [place] [address]Dr. Devin Suresh Albumin/Globulin [Mass ratio] 0.9 {ratio} Normal [facility] Comment on above: Performed By: #### C MP ####[facility] Svafvoozwu[address] [place], [place] [address]Dr. Devin Suresh ALP [Catalytic activity/Vol] 109 U/L Normal 46-116 [facility] Comment on above: Performed By: #### C MP ####[facility] Mgmunvouoo646[address] [place], [place] [address]Dr. Devin Suresh ALT [Catalytic activity/Vol] 13 U/L Critically low 14-59 [facility] Comment on above: Performed By: #### C MP ####[facility] Gtdxgrvzay[address] [place], [place] [address]Dr. Devin Suresh Anion gap [Moles/Vol] 12.1 mmol/L Normal [facility] [place] Comment on above: Performed By: #### C MP ####[facility] Hnwemhkzku[address] [place], [place] [address]Dr. Devin Suresh AST [Catalytic activity/Vol] 6 U/L Critically low 15-37 [facility] Comment on above: Performed By: #### C MP ####[facility] Wwqzkreodr17[address] [place], [place] [address]Dr. Devin Suresh Bilirubin [Mass/Vol] 0.4 mg/dL Normal 0.2-1.0 [facility] Comment on above: Performed By: #### C MP ####[facility] Uvyfzipvyr[address] [place], [place] [address]Dr. Devin Suresh Calcium [Mass/Vol] 8.6 mg/dL Normal 8.5-10.1 [facility] Comment on above: Performed By: #### C MP ####[facility] Alpxwospqm324[address] [place], [place] [address]Dr. Devin Suresh Chloride [Moles/Vol] 105 mmol/L Normal 98-107 [facility] Comment on above: Performed By: #### C MP ####[facility] Rbjlvotavk[address] [place], [place] [address]Dr. Devin Suresh CO2 [Moles/Vol] 25.4 mmol/L Normal 21.0-32.0 [facility] Comment on above: Performed By: #### C MP ####[facility] Uiezkvjyzr[address] [place], [place] [address]Dr. Devin Suresh Creatinine [Mass/Vol] 1.38 mg/dL Critically high 0.55-1.02 [facility] Comment on above: Performed By: #### C MP ####[facility] Qikzpicmkz818[address] [place], [place] [address]Dr. Devin Suresh EGFR-AF [place] 50 mL/min/1.73m2 Critically low >=60 [facility] Comment on above: Performed By: #### C MP ####[facility] Slffbfvqxf437[address] [place], [place] [address]Dr. Devin Surehs EGFR-NON AF [place] 42 mL/min/1.73m2 Critically low >=60 [facility] Comment on above: Performed By: #### C MP ####[facility] Cbycocwvcm840[address] [place], [place] [address]Dr. Devin Suresh Globulin (S) [Mass/Vol] 3.3 g/dL Normal [facility] Comment on above: Performed By: #### C MP ####[facility] Z[address]mbpwt[address] [place] [address]Dr. Devin Suresh Glucose [Mass/Vol] 258 mg/dL Critically high 74-106 [facility] Comment on above: Performed By: #### C MP ####[facility] Pkdogumiig4406 [place] [address]Dr. Devin Suresh Potassium [Moles/Vol] 4.5 mmol/L Normal 3.5-5.1 [facility] Comment on above: Performed By: #### C MP ####[facility] Fyikjtamuj[address] [place] [address]Dr. Devin Suresh Protein [Mass/Vol] 6.2 g/dL Critically low 6.4-8.2 [facility] [place] Comment on above: Performed By: #### C MP ####[facility] Wsqibgmjvq63[address] [place], [place] [address]Dr. Devin Suresh Sodium [Moles/Vol] 138 mmol/L Normal 136-145 [facility] Comment on above: Performed By: #### C MP ####[facility] Ibvjgxhcrs5[address] [place] [address]Dr. Devin Suresh Urea nitrogen [Mass/Vol] 22.0 mg/dL Critically high 7.0-18.0 [facility] Comment on above: Performed By: #### C MP ####[facility] Eeetsvmlkz09[address] [place] [address]Dr. Devin Suresh Urea nitrogen/Creatinine [Mass ratio] 15.9 mg/mg Normal [facility] Comment on above: Performed By: #### C MP ####[facility] Ntfczmpjht9[address] [place] [address]Dr. Devin Kerwin CARDIAC LAURA 3-6on 2 CK [Catalytic activity/Vol] 46 U/L Normal 26-192 [facility] Comment on above: Performed By: #### C MREP ####[facility] Icbkjfjfeu15[address] [place] [address]Dr. Devin Kerwin CK.MB [Mass/Vol] 0.87 ng/mL Normal <=3.60 [facility] Comment on above: Performed By: #### C MREP ####[facility] I[address]bqmqoso87[address] [place] [id number]. Devin Suresh HSTROP 8.1 pg/mL Normal 4.0-51.3 [facility] Comment on above: Result Comment: CUT- OFF POINTS HAVE BEEN ESTABLISHED BASED ON THE FOURTH UNIVERSAL DEFINITIONS OF MYOCARDIALINFARCTION. THE UPPER REFERENCE LIMIT (URL) OF TROPONIN, DEFINED THE 99TH PERCENTILE OFcTnI DISTRIBUTION IN A REFERENCE POPULATION, HAS BEEN CONFIRMED THE DECISION THRESHOLDFOR ND DIAGNOSIS. Performed By: #### C MREP ####[facility] [address]vbnsebjbs[address] [place] [phone]. Devin Suresh CK [Catalytic activity/Vol] 51 U/L Normal 26-192 [facility] Comment on above: Performed By: #### C MREP ####[facility] Jvlrmnoxht9637 [place] [address]Dr. Devin Suresh CK.MB [Mass/Vol] 0.85 ng/mL Normal <=3.60 [facility] Comment on above: Performed By: #### C MREP ####[facility] Zbsolroedt38[address] [place] [address]Dr. Devin Suresh HSTROP 10.8 pg/mL Normal 4.0-51.3 [facility] Comment on above: Result Comment: CUT- OFF POINTS HAVE BEEN ESTABLISHED BASED ON THE FOURTH UNIVERSAL DEFINITIONS OF MYOCARDIALINFARCTION. THE UPPER REFERENCE LIMIT (URL) OF TROPONIN, DEFINED THE 99TH PERCENTILE OFcTnI DISTRIBUTION IN A REFERENCE POPULATION, HAS BEEN CONFIRMED THE DECISION THRESHOLDFOR ND DIAGNOSIS. Performed By: #### C MREP ####[facility] Bswphgtyys[address] [place] [phone]. Devin Suresh CBC AUTO DIFFon 03-04-2022 BASO # 0.1 103/ul Normal 0.0-0.1 [facility] Comment on above: Performed By: #### C BC ####[facility] S[address]soqhcoh6[address] [place] [address]Dr. Devin Suresh Basophils/100 WBC (Bld) 0.8 % Normal 0.2-2.0 [facility] Comment on above: Performed By: #### C BC ####[facility] Snnbedpglo9[address] [place] [address]Dr. Devin Suresh EO # 0.2 103/ul Normal 0.0-0.7 [facility] Comment on above: Performed By: #### C BC ####[facility] Tzufkypmor93[address] [place] [address]Dr. Devin Suresh Eosinophils/100 WBC (Bld) 2.0 % Normal 0.9-7.0 [facility] Comment on above: Performed By: #### C BC ####[facility] Nfwfqiebks449[address] [place], [place] [address]Dr. Devin Suresh Erythrocyte distribution width (RBC) [Ratio] 13.1 % Normal 11.0-15.0 [facility] Comment on above: Performed By: #### C BC ####[facility] Xafkqwjvyl[address] [place], [place] [address]Dr. Devin Suresh Hematocrit (Bld) [Volume fraction] 35.0 % Critically low 36.0-48.0 [facility] Comment on above: Performed By: #### C BC ####[facility] Tcmbkrdehr59[address] [place], [place] [address]Dr. Devin Suresh Hemoglobin (Bld) [Mass/Vol] 11.9 g/dL Critically low 12.0-16.0 [facility] Comment on above: Performed By: #### C BC ####[facility] Ivnyrgtbrn08[address] [place], [place] [address]Dr. Devin Suresh IG # 0.05 10e3/ul Critically high 0.00-0.03 [facility] Comment on above: Performed By: #### C BC ####[facility] Txwsdacmek074[address] [place], [place] [address]Dr. Devin Suresh IG % 0.5 % Normal 0.0-0.5 [facility] Comment on above: Performed By: #### C BC ####[facility] Chempmutpm[address] [place], [place] [address]Dr. Devin Suresh LYMPH # 3.4 103/ul Normal 1.2-3.8 [facility] Comment on above: Performed By: #### C BC ####[facility] Naurlebigy[address] [place] [phone]. Devin Suresh Lymphocytes/100 WBC (Bld) 34.2 % Normal 20.5-60.0 [facility] Comment on above: Performed By: #### C BC ####[facility] Zeoelrtitd25[address] [place] [address]Dr. Devin Suresh MANUAL DIFF REQ NO Normal [facility] Comment on above: Performed By: #### C BC ####[facility] Firvulsstu[address] [place] [phone]. Devin Kerwin MCH (RBC) [Entitic mass] 30.6 pg Normal 26.7-34.0 [facility] Comment on above: Performed By: #### C BC ####[facility] Uuebesuvqf7[address] [place], [place] [address]Dr. Devin Kerwin MCHC (RBC) [Mass/Vol] 34.0 g/dL Normal 29.9-35.2 [facility] Comment on above: Performed By: #### C BC ####[facility] Yhwgejyksm[address] [place], [place] [address]Dr. Devin Kerwin MCV (RBC) [Entitic vol] 90.0 fL Normal 81.0-99.0 [facility] Comment on above: Performed By: #### C BC ####[facility] Xkmkbhabrt[address] [place], [place] [address]Dr. Tishemily Kerwin MONO # 0.7 103/ul Normal 0.3-0.8 [facility] Comment on above: Performed By: #### C BC ####[facility] Eyfssyibkk[address] [place], [place] [address]Dr. Devin Suresh Monocytes/100 WBC (Bld) 6.6 % Normal 1.7-12.0 [facility] Comment on above: Performed By: #### C BC ####[facility] V[address]kqgh[address] [place], [place] [address]Dr. Devin Surseh NEUT # 5.6 103/ul Normal 1.4-6.5 [facility] Comment on above: Performed By: #### C BC ####[facility] [address]zrzsvijpl59[address] [place], [place] [address]Ku. Devin Suresh Neutrophils/100 WBC (Bld) 55.9 % Normal 43.0-75.0 [facility] Comment on above: Performed By: #### C BC ####[facility] Oalbupdkoc5415 [place], [place] [address]Qo. Devin Suresh Platelet mean volume (Bld) [Entitic vol] 9.1 fL Critically low 9.5-13.5 [facility] Comment on above: Performed By: #### C BC ####[facility] V[address]ussqove[address] [place], [place] [address]Si. Devin Suresh PLT 334 103/ul Normal 150-450 [facility] Comment on above: Performed By: #### C BC ####[facility] Aykzactdgd75[address] [place] [phone]. Devin Suresh RBC 3.89 106/ul Critically low 4.20-5.40 [facility] Comment on above: Performed By: #### C BC ####[facility] Mspbrxqsrr0334 [place] [phone]. Devin Suresh WBC 10.0 103/ul Normal 4.0-11.0 [facility] Comment on above: Performed By: #### C BC ####[facility] Jcavcxrwdp[address] [place] [phone]. Devin Suresh CT LSPINE WO CONon 2 CT LSPINE WO CON Normal [facility] Covid-19 PCR (CVDTBH)on 02-22 SARS-CoV-2 (COVID-19) RNA EBONIE+probe Ql (Unsp spec) Not detected Normal NOT DETECTED [facility] Comment on above: Result Comment: When diagnostic testing is negative, the possibility of a false negative should be considered inthe context of a patient's recent exposures and the presence of clinical signs and symptomsconsistent with SARS-CoV-2.This test is not yet approved or cleared by the [place] FDA. When there are no FDA-approved or cleared tests available, and other criteria are met, FDA can make tests available under an emergency access mechanism called an Emergency Use Authorization (EUA). The EUA for this test is supported by the [place] of Health and Human Service's declaration that circumstances exist to justify the emergency use of in vitro diagnostics for the detection and/or diagnosis of the virus that causes COVID-19. This EUA will remain in effect for the duration of the COVID-19 declaration justifying emergency of IVDs, unless it is terminated or revoked by the FDA (after which the test may no longer be used). Performed By: #### C VDTBH ####[facility] [address]qowtcocmp[address] [place], [place] [address]In. Devin Suresh LIPID PROFILEon 03-04-2022 CHOL-HDL RATIO NORM SEE BELOW Normal [facility] Comment on above: Result Comment: 3.3 - 4.4 LOW RISK 4.4 - 7.1 AVERAGE RISK 7.1 - 11.0 MODERATE RISK >11.0 HIGH RISK Performed By: #### L IPID, TSH ####[facility] Us[address]kmzvjc76[address] [place] [phone]. Tishemily Suresh Cholesterol [Mass/Vol] 231 mg/dL Critically high <=200 [facility] Comment on above: Performed By: #### L IPID, TSH ####[facility] Zufyxmoeon22[address] [place], [place] [address]Bm. Devin Suresh Cholesterol in HDL [Mass/Vol] 52 mg/dL Normal 40-60 [facility] Comment on above: Performed By: #### L IPID, TSH ####[facility] Rgjfwccdaa2440 [place], [place] [address]Is. Devin Suresh Cholesterol in LDL [Mass/Vol] 156.6 mg/dL Normal [facility] Comment on above: Performed By: #### L IPID, TSH ####[facility] Geixxtzejl79[address] [place] [phone]. Devin Suresh Cholesterol.total/Cho lesterol in HDL [Mass ratio] 4.4 {ratio} Normal [facility] Comment on above: Performed By: #### L IPID, TSH ####[facility] Dznmipkqlb36[address] [place], [place] [address]Bx. Tishemily Kerwin HDL NORMAL > or = 60 mg/dl - LO W CARDIOVASCULAR RISK <40 mg/dl - HIGH CARDIOVASCULAR RISK Normal [facility] Comment on above: Performed By: #### L IPID, TSH ####[facility] Shkwljmtex65[address] [place] [phone]. Tishemily Suresh LDL CALC NORMAL SEE BELOW Normal [facility] Comment on above: Result Comment: <100 mg/dl OPTIMAL 100 - 129 mg/dl NEAR OR ABOVE OPTIMAL 130 - 159 mg/dl BORDERLINE HIGH 160 - 189 mg/dl HIGH >190 mg/dl VERY HIGH Performed By: #### L IPID, TSH ####[facility] Qfggucpurk46[address] [place] [phone]. Devin uSresh Triglyceride [Mass/Vol] 112 mg/dL Normal <=150 [facility] Comment on above: Performed By: #### L IPID, TSH ####[facility] Jelrtpvmaz0703 [place] [phone]. Tishemily Kerwin VLDL CALC 22.4 mg/dL Normal [facility] Comment on above: Performed By: #### L IPID, TSH ####[facility] Kdqnloxkdr4535 [place] [phone]. Tishemily Kerwin POINT OF CARE GLUCOSEon 02-22 Glucose [Mass/Vol] 295 mg/dL Critically high -106 [facility] Comment on above: Performed By: #### P OCGLUC ####[facility] Jusnlitxtt66[address] [place] [address]Dr. Devin Suresh Glucose [Mass/Vol] 157 mg/dL Critically high -106 [facility] Comment on above: Performed By: #### P OCGLUC ####[facility] Abyphrutjp2632 [place] [phone]. Tishemily Kerwin Glucose [Mass/Vol] 172 mg/dL Critically high -106 [facility] Comment on above: Performed By: #### P OCGLUC ####[facility] Gyghyvkqvm6862 [place] [phone]. Devin Suresh Glucose [Mass/Vol] 178 mg/dL Critically high -106 [facility] Comment on above: Performed By: #### P OCGLUC ####[facility] Dfsmrklaxe2432 [place] [address]Dr. Devin Suresh Glucose [Mass/Vol] 241 mg/dL Critically high 74-106 [facility] Comment on above: Performed By: #### P OCGLUC ####[facility] Skbisnhzyg0303 [place] [address]Dr. Devin Suresh PROF 14(COMP METB)on 022 Albumin [Mass/Vol] 3.1 g/dL Critically low 3.4-5.0 [place] Comment on above: Performed By: #### C MP ####[facility] Lcmyyjmuru[address] [place], [place] [address]Dr. Devin Suresh Albumin/Globulin [Mass ratio] 0.9 {ratio} Normal [facility] Comment on above: Performed By: #### C MP ####[facility] Eyxvhkqmyl[address] [place], [place] [address]Dr. Devin Suresh ALP [Catalytic activity/Vol] 114 U/L Normal 46-116 [facility] Comment on above: Performed By: #### C MP ####[facility] [address]sfbmmoohy[address] [place], [place] [address]Dr. Devin Suresh ALT [Catalytic activity/Vol] 9 U/L Critically low 14-59 [facility] Comment on above: Performed By: #### C MP ####[facility] Gjybspmcml[address] [place], [place] [address]Dr. Devin Suresh Anion gap [Moles/Vol] 12.3 mmol/L Normal [place] Comment on above: Performed By: #### C MP ####[facility] Ycqnvepvae7108 [place] [address]Dr. Devin Suresh AST [Catalytic activity/Vol] 7 U/L Critically low 15-37 [facility] Comment on above: Performed By: #### C MP ####[facility] Hxayghsgbe7040 [place] [address]Dr. Devin Suresh Bilirubin [Mass/Vol] 0.4 mg/dL Normal 0.2-1.0 [facility] Comment on above: Performed By: #### C MP ####[facility] Ftjzakqjco99[address] [place] [address]Dr. Devin Suresh Calcium [Mass/Vol] 8.3 mg/dL Critically low 8.5-10.1 [facility] Comment on above: Performed By: #### C MP ####[facility] Psxcpmqhlg0387 [place] [address]Dr. Devin Suresh Chloride [Moles/Vol] 103 mmol/L Normal 98-107 [facility] Comment on above: Performed By: #### C MP ####[facility] Vxfzykswyk9064 [place] [address]Dr. Devin Suresh CO2 [Moles/Vol] 27.2 mmol/L Normal 21.0-32.0 [facility] Comment on above: Performed By: #### C MP ####[facility] Jxzyictccy[address] [place], [place] [address]Dr. Devin Suresh Creatinine [Mass/Vol] 0.95 mg/dL Normal 0.55-1.02 [facility] Comment on above: Performed By: #### C MP ####[facility] Fdkcvcocvp67[address] [place], [place] [address]Dr. Devin Suresh EGFR-AF [place] >60 Normal >=60 [facility] Comment on above: Performed By: #### C MP ####[facility] Cqbwdxkwtj5[address] [place] [address]Dr. Devin Suresh EGFR-NON AF [place] >60 Normal >=60 [facility] Comment on above: Performed By: #### C MP ####[facility] Kixgpubudq7[address] [place] [phone]. Devin Suresh Globulin (S) [Mass/Vol] 3.3 g/dL Normal [facility] Comment on above: Performed By: #### C MP ####[facility] Wwedtlsdot2858 [place] [address]Dr. Devin Suresh Glucose [Mass/Vol] 186 mg/dL Critically high 74-106 T [facility] Comment on above: Performed By: #### C MP ####[facility] Zdyynklmes4803 [place] [address]Dr. Devin Suresh Potassium [Moles/Vol] 3.5 mmol/L Normal 3.5-5.1 [facility] Comment on above: Performed By: #### C MP ####[facility] Ilgjrskeai7212 [place] [address]Dr. Devin Suresh Protein [Mass/Vol] 6.4 g/dL Normal 6.4-8.2 [facility] Comment on above: Performed By: #### C MP ####[facility] Wjjbpcphwc0934 [place] [address]Dr. Devin Suresh Sodium [Moles/Vol] 139 mmol/L Normal 136-145 [facility] Comment on above: Performed By: #### C MP ####[facility] Viqdltrpbi2534 [place] [address]Dr. Tishemily Kerwin Urea nitrogen [Mass/Vol] 22.0 mg/dL Critically high 7.0-18.0 [facility] Comment on above: Performed By: #### C MP ####[facility] Vviqvkwotl1304 [place] [address]Dr. Devin Kerwin Urea nitrogen/Creatinine [Mass ratio] 23.2 mg/mg Normal [facility] Comment on above: Performed By: #### C MP ####[facility] Bjeafidsdm8512 [place] [address]Dr. Devin Kerwin TSHon 03-04-2022 TSH 4.081 uIU/mL Critically high 0.358-3.740 [facility] Comment on above: Performed By: #### L IPID, TSH ####[facility] Eltdyowbqh74[address] [place] [address]Dr. Devin Kerwin CARDIAC LAURA ADMITon 022 CK [Catalytic activity/Vol] 58 U/L Normal 26-192 [facility] Comment on above: Performed By: #### C MADM, BMP ####[facility] Xhrzxgbulx036[address] [place] [address]Dr. Devin Kerwin CK.MB [Mass/Vol] 0.80 ng/mL Normal <=3.60 [facility] Comment on above: Performed By: #### C CITLALLI, BMP ####[facility] Dlpwmuyhjq6763 [place] [address]Dr. Devin Suresh HSTROP 7.9 pg/mL Normal 4.0-51.3 [facility] Comment on above: Result Comment: CUT- OFF POINTS HAVE BEEN ESTABLISHED BASED ON THE FOURTH UNIVERSAL DEFINITIONS OF MYOCARDIALINFARCTION. THE UPPER REFERENCE LIMIT (URL) OF TROPONIN, DEFINED THE 99TH PERCENTILE OFcTnI DISTRIBUTION IN A REFERENCE POPULATION, HAS BEEN CONFIRMED THE DECISION THRESHOLDFOR ND DIAGNOSIS. Performed By: #### C CITLALLI, BMP ####[facility] Fmeheitvki[address] [place], [place] [address]Dr. Tishemily Suresh MELANIE 48 ng/mL Normal 9-82 [facility] Comment on above: Performed By: #### C CITLALLI, ALEXIA ####[facility] Dbdtiurxoa064[address] [place], [place] [address]Dr. Devin Suresh CBC AUTO DIFFon 03-03-2022 BASO # 0.1 103/ul Normal 0.0-0.1 [facility] Comment on above: Performed By: #### C BC ####[facility] Ngqqcdorbe29[address] [place], [place] [address]Dr. Devin Suresh Basophils/100 WBC (Bld) 0.8 % Normal 0.2-2.0 [facility] Comment on above: Performed By: #### C BC ####[facility] Ezrnnlxcor[address] [place], [place] [address]Dr. Devin Suresh EO # 0.1 103/ul Normal 0.0-0.7 [facility] Comment on above: Performed By: #### C BC ####[facility] Uscesnrqmy[address] [place], [place] [address]Dr. Devin Suresh Eosinophils/100 WBC (Bld) 1.1 % Normal 0.9-7.0 [facility] Comment on above: Performed By: #### C BC ####[facility] Nbpxdtzmzr760[address] [place], [place] [address]Dr. Devin Suresh Erythrocyte distribution width (RBC) [Ratio] 12.9 % Normal 11.0-15.0 [facility] Comment on above: Performed By: #### C BC ####[facility] Armitermpf[address] [place] [address]DrMaris Suresh Hematocrit (Bld) [Volume fraction] 37.6 % Normal 36.0-48.0 [facility] Comment on above: Performed By: #### C BC ####[facility] Tpdcbclwwp8291 [place] [address]DrMaris Suresh Hemoglobin (Bld) [Mass/Vol] 12.9 g/dL Normal 12.0-16.0 [facility] Comment on above: Performed By: #### C BC ####[facility] Dluqosmhwp[address] [place], [place] [address]DrMaris Suresh IG # 0.06 10e3/ul Critically high 0.00-0.03 [facility] Comment on above: Performed By: #### C BC ####[facility] Yzuhnxdedk[address] [place], [place] [address]DrMaris Suresh IG % 0.6 % Critically high 0.0-0.5 [facility] Comment on above: Performed By: #### C BC ####[facility] Nowbmtlmpj[address] [place], [place] [address]DrMaris Suresh LYMPH # 2.4 103/ul Normal 1.2-3.8 [facility] Comment on above: Performed By: #### C BC ####[facility] Tqdqeroapb[address] [place], [place] [address]DrMaris Suresh Lymphocytes/100 WBC (Bld) 22.2 % Normal 20.5-60.0 [facility] Comment on above: Performed By: #### C BC ####[facility] Nojylwbkcy[address] [place], [place] [address]DrMaris Suresh MANUAL DIFF REQ NO Normal [facility] Comment on above: Performed By: #### C BC ####[facility] Hvsgbzkdwj[address] [place], [place] [address]DrMaris Suresh MCH (RBC) [Entitic mass] 30.7 pg Normal 26.7-34.0 [facility] Comment on above: Performed By: #### C BC ####[facility] K[address]rem[address] [place] [address]DrMaris Suresh MCHC (RBC) [Mass/Vol] 34.3 g/dL Normal 29.9-35.2 [facility] Comment on above: Performed By: #### C BC ####[facility] Wpibewwnjk[address] [place] [address]DrMaris Suresh MCV (RBC) [Entitic vol] 89.5 fL Normal 81.0-99.0 [facility] Comment on above: Performed By: #### C BC ####[facility] Qjmkmumqzf[address] [place], [place] [address]DrMaris Suresh MONO # 0.6 103/ul Normal 0.3-0.8 [facility] Comment on above: Performed By: #### C BC ####[facility] Tkxzpxrwlm265[address] [place], [place] [address]DrMaris Suresh Monocytes/100 WBC (Bld) 5.3 % Normal 1.7-12.0 [facility] Comment on above: Performed By: #### C BC ####[facility] Eapmpmexdq[address] [place], [place] [address]DrMaris Suresh NEUT # 7.4 103/ul Critically high 1.4-6.5 [facility] Comment on above: Performed By: #### C BC ####[facility] Lgzoblaqpm[address] [place], [place] [address]DrMaris Suresh Neutrophils/100 WBC (Bld) 70.0 % Normal 43.0-75.0 [facility] Comment on above: Performed By: #### C BC ####[facility] Rohbtgimdl[address] [place], [place] [address]DrMaris Suresh Platelet mean volume (Bld) [Entitic vol] 9.6 fL Normal 9.5-13.5 [facility] Comment on above: Performed By: #### C BC ####[facility] Edjclnjrsw[address] [place], [place] [address]DrMaris Suresh PLT 382 103/ul Normal 150-450 [facility] Comment on above: Performed By: #### C BC ####[facility] Hfxjepufnx[address] [place] [address]Dr. Devin Suresh RBC 4.20 106/ul Normal 4.20-5.40 [facility] Comment on above: Performed By: #### C BC ####[facility] L[address]kkwyyxj[address] [place] [address]Dr. Tishemily Kerwin WBC 10.6 103/ul Normal 4.0-11.0 [facility] Comment on above: Performed By: #### C BC ####[facility] Psyxwfcnfb[address] [place] [address]Dr. Devin Suresh CT STROKE HEAD WOon 03-03-[address] STROKE HEAD WO Normal [facility] POINT OF CARE GLUCOSEon 02-22 Glucose [Mass/Vol] 453 mg/dL Critically high 74-106 [facility] Comment on above: Performed By: #### P OCGLUC ####[facility] Nbuunylyrh[address] [place] [address]Dr. Devin Suresh PROF CHEM 8 (BAS METB)on Anion gap [Moles/Vol] 11.1 mmol/L Normal [facility] Comment on above: Performed By: #### C CITLALLI, BMP ####[facility] Lsxiododfb[address] [place] [id number] Suresh Calcium [Mass/Vol] 8.6 mg/dL Normal 8.5-10.1 [facility] Comment on above: Performed By: #### C CITLALLI, BMP ####[facility] Dkzbzmdjgo13[address] [place] [phone]. Devin Suresh Chloride [Moles/Vol] 98 mmol/L Normal 98-107 [facility] Comment on above: Performed By: #### C CLEOPATRAM, BMP ####[facility] Mvwdferxkb38[address] [place] [address]DrMaris Suresh CO2 [Moles/Vol] 29.0 mmol/L Normal 21.0-32.0 [facility] Comment on above: Performed By: #### C MADM, BMP ####[facility] Cqkpquimra44[address] [place] [phone]. Devin Suresh Creatinine [Mass/Vol] 1.16 mg/dL Critically high 0.55-1.02 [facility] Comment on above: Performed By: #### C MADM, BMP ####[facility] Nafpbsughq[address] [place] [address]Dr. Devin Suresh EGFR-AF [place] >60 Normal >=60 [facility] Comment on above: Performed By: #### C MADM, BMP ####[facility] Jonsojysmg[address] [place], [place] [address]Dr. Devin Suresh EGFR-NON AF [place] 51 mL/min/1.73m2 Critically low >=60 [facility] Comment on above: Performed By: #### C MADM, BMP ####[facility] Cphtiyamzc26[address] [place], [place] [address]Dr. Devin Suresh Glucose [Mass/Vol] 428 mg/dL Critically high 74-106 [facility] Comment on above: Performed By: #### C MADM, BMP ####[facility] Crkdackdib876[address] [place], [place] [address]Dr. Devin Suresh Potassium [Moles/Vol] 4.1 mmol/L Normal 3.5-5.1 [facility] Comment on above: Performed By: #### C MADM, BMP ####[facility] Mpcthoqbnj120[address] [place], [place] [address]Dr. Devin Suresh Sodium [Moles/Vol] 134 mmol/L Critically low 136-145 [facility] [place] Comment on above: Performed By: #### C MADM, BMP ####[facility] Erwiwsbheh[address] [place], [place] [address]Dr. Devin Suresh Urea nitrogen [Mass/Vol] 23.0 mg/dL Critically high 7.0-18.0 [facility] Comment on above: Performed By: #### C MADM, BMP ####[facility] Yfgygjljxo[address] [place], [place] [address]Dr. Devin Suresh Urea nitrogen/Creatinine [Mass ratio] 19.8 mg/mg Normal [facility] Comment on above: Performed By: #### C CLEOPATRA, [facility] ####[facility] [address] [place], [place] [address]Tm. Devin Suresh XR CHEST 1 Von 03-03-2022 XR CHEST 1 V Normal [facility] CHEMISTRYOrdered By: SYSTEM SYSTEM on 02-27-2022 Troponin I.cardiac [Mass/Vol] 4.30 pg/mL Low 10.10 - 27.10 pg/mL [facility] Anion gap [Moles/Vol] 13 mmol/L Normal 6 - 16 mEq/L [facility] Calcium [Mass/Vol] 9.2 mg/dL Normal 8.9 - 11. 1 mg/dL [facility] Chloride [Moles/Vol] 97 mmol/L Low 101 - 1 11 mmol/L [facility] CO2 [Moles/Vol] 26 mmol/L Normal 21 - 31 mmol/L [facility] Creatinine [Mass/Vol] 0.9 mg/dL Normal 0.5 - 1.3 mg/dL [facility] GFR/1.73 sq M.predicted among blacks MDRD (S/P/Bld) [Vol rate/Area] mL/min/1.73 m2 Normal >=59mL/min/ 1.73 m2 [facility] Chem S GFR/1.73 sq M.predicted among non-blacks MDRD (S/P/Bld) [Vol rate/Area] mL/min/1.73 m2 Normal >=59mL/min/ 1.73 m2 [facility] Chem S Glucose [Mass/Vol] 310 mg/dL High 55 - 199 mg/dL [facility] Potassium [Moles/Vol] 3.5 mmol/L Normal 3.5 - 5.3 mmol/L [facility] Sodium [Moles/Vol] 132 mmol/L Low 135 - 145 mmol/L [facility] Urea nitrogen [Mass/Vol] 16 mg/dL Normal 5 - 21 mg/dL [facility] Urea nitrogen/Creatinine [Mass ratio] 18 mg/mg Normal 10 - 20 [facility] Valproate [Moles/Vol] microgram/mL Low 50 - 9 9 mcg/mL [facility] Comment on above: Result Comment: Resu lt verified by dilution CHEMISTRYOrdered By: Don Villagomez on 02-27-2022 Troponin I.cardiac [Mass/Vol] 5.90 pg/mL Low 10.10 - 27.10 pg/mL [facility] HEMATOLOGYOrdered By: SYSTEM SYSTEM on 02-27-2022 Basophils/100 WBC (Bld) 1.1 % Normal 0.0 - 2.0 % [facility] HemeAutoSS Basophils/Leukocytes Auto (Bld) [Pure # fraction] 0.1 E9/L Normal 0.0 - 0.2 E9/L [facility] HemeAutoSS Eosinophils/100 WBC (Bld) 1.9 % Normal 0.0 - 8.0 % [facility] HemeAutoSS Eosinophils/Leukocyte s Auto (Bld) [Pure # fraction] 0.2 E9/L Normal 0.0 - 0.5 E9/L [facility] HemeAutoSS Lymphocytes/100 WBC (Bld) 21.6 % Normal 14.0 - 50.0 % [facility] HemeAutoSS Lymphocytes/Leukocyte s Auto (Bld) [Pure # fraction] 2.0 E9/L Normal 1.0 - 4.0 E9/L [facility] HemeAutoSS Monocytes/100 WBC (Bld) 5.0 % Normal 4.0 - 14.0 % [facility] HemeAutoSS Monocytes/Leukocytes Auto (Bld) [Pure # fraction] 0.5 E9/L Normal 0.2 - 1.0 E9/L [facility] HemeAutoSS Neutrophils/100 WBC (Bld) 70.4 % Normal 36.0 - 75.0 % [facility] HemeAutoSS Neutrophils/Leukocyte s Auto (Bld) [Pure # fraction] 6.7 E9/L Normal 2.0 - 7.5 E9/L [facility] HemeAutoSS HEMATOLOGYOrdered By: Shannen Sosa on 02-27-2022 Erythrocyte distribution width (RBC) [Ratio] 13.4 % Normal 10.9 - 14.2 % [facility] HemeAutoSS Hematocrit (Bld) [Volume fraction] 38.3 % Normal 34.0 - 46.0 % [facility] HemeAutoSS Hemoglobin (Bld) [Mass/Vol] 13.0 g/dL Normal 12.0 - 16.0 gm/dL [facility] HemeAutoSS MCH (RBC) [Entitic mass] 29.7 pg Normal 27.0 - 34.0 pg [facility] HemeAutoSS MCHC (RBC) [Mass/Vol] 33.9 g/dL Normal 31.4 - 36.0 gm/dL [facility] HemeAutoSS MCV (RBC) [Entitic vol] 87.6 fL Normal 80.0 - 100.0 fL [facility] HemeAutoSS Platelet mean volume (Bld) [Entitic vol] 7.5 fL Normal 6.4 - 10.8 fL [facility] HemeAutoSS Platelets (Bld) [#/Vol] 343.0 E9/L Normal 150.0 - 500.0 E9/L [facility] HemeAutoSS RBC (Bld) [#/Vol] 4.4 E12/L Normal 4.3 - 5.9 E12/L [facility] HemeAutoSS WBC corrected for nucl RBC Auto (Bld) [#/Vol] 9.5 E9/L Normal 4.0 - 11.0 E9/L [facility] HemeAutoSS CULTURE URINEon 02-20-2022 CULTURE URINE Normal [facility] Comment on above: Performed By: #### U RCX ####[facility] Grraimjmgm[address] [place], [place] [address]Dr. Devin Suresh ACETONE SERUMon 02-18-2022 ACETONE Negative Normal NEGATIVE [facility] Comment on above: Performed By: #### A CETON ####[facility] Y[address]qwvvtwlf[address] [place], [place] [address]Dr. Devin Suresh CBC AUTO DIFFon 02-18-2022 BASO # 0.0 103/ul Normal 0.0-0.1 [facility] Comment on above: Performed By: #### C BC ####[facility] Mowipywtve[address] [place], [place] [address]Dr. Devin Suresh Basophils/100 WBC (Bld) 0.4 % Normal 0.2-2.0 [facility] Comment on above: Performed By: #### C BC ####[facility] Wsbpemiovt[address] [place], [place] [address]Dr. Devin Suresh EO # 0.1 103/ul Normal 0.0-0.7 [facility] Comment on above: Performed By: #### C BC ####[facility] O[address]puxer[address] [place] [address]Dr. Devin Suresh Eosinophils/100 WBC (Bld) 1.0 % Normal 0.9-7.0 [facility] Comment on above: Performed By: #### C BC ####[facility] Pvhqtmhckd[address] [place], [place] [address]Dr. Devin Suresh Erythrocyte distribution width (RBC) [Ratio] 12.3 % Normal 11.0-15.0 [facility] Comment on above: Performed By: #### C BC ####[facility] Qzwpcfxstt378[address] [place], [place] [address]Dr. Devin Suresh Hematocrit (Bld) [Volume fraction] 34.4 % Critically low 36.0-48.0 [facility] Comment on above: Performed By: #### C BC ####[facility] Fcacjryyxj227[address] [place], [place] [address]Dr. Devin Suresh Hemoglobin (Bld) [Mass/Vol] 11.7 g/dL Critically low 12.0-16.0 [facility] Comment on above: Performed By: #### C BC ####[facility] Nuectthwwv[address] [place], [place] [address]Dr. Devin Suresh IG # 0.09 10e3/ul Critically high 0.00-0.03 [facility] Comment on above: Performed By: #### C BC ####[facility] Cxsmkouuxf7[address] [place], [place] [address]Dr. Devin Suresh IG % 0.9 % Critically high 0.0-0.5 [facility] Comment on above: Performed By: #### C BC ####[facility] Epuqvrmgnz[address] [place], [place] [address]Dr. Devin Suresh LYMPH # 2.0 103/ul Normal 1.2-3.8 [facility] Comment on above: Performed By: #### C BC ####[facility] Jhezklheil[address] [place], [place] [address]Dr. Devin Suresh Lymphocytes/100 WBC (Bld) 19.8 % Critically low 20.5-60.0 [facility] Comment on above: Performed By: #### C BC ####[facility] [address]alkpp[address] [place] [phone]. Devin Suresh MANUAL DIFF REQ NO Normal [facility] Comment on above: Performed By: #### C BC ####[facility] Zykliobefr[address] [place] [phone]. Devin Suresh MCH (RBC) [Entitic mass] 30.2 pg Normal 26.7-34.0 [facility] Comment on above: Performed By: #### C BC ####[facility] Lcaspgzdnm[address] [place] [phone]. Devin Suresh MCHC (RBC) [Mass/Vol] 34.0 g/dL Normal 29.9-35.2 [facility] Comment on above: Performed By: #### C BC ####[facility] Sliotazhwd[address] [place] [phone]. Devin Kerwin MCV (RBC) [Entitic vol] 88.9 fL Normal 81.0-99.0 [facility] Comment on above: Performed By: #### C BC ####[facility] [address]hd[address]ogd6[address] [place] [phone]. Devin Kerwin MONO # 0.6 103/ul Normal 0.3-0.8 [facility] Comment on above: Performed By: #### C BC ####[facility] Camyxtkcwd38[address] [place] [phone]. Tishemily Suresh Monocytes/100 WBC (Bld) 6.4 % Normal 1.7-12.0 [facility] Comment on above: Performed By: #### C BC ####[facility] Dwlbktizir[address] [place] [phone]. Devin Suresh NEUT # 7.0 103/ul Critically high 1.4-6.5 [facility] Comment on above: Performed By: #### C BC ####[facility] Flfywevpaw[address]48 [place] [phone]. Tishemily Suresh Neutrophils/100 WBC (Bld) 71.5 % Normal 43.0-75.0 [facility] Comment on above: Performed By: #### C BC ####[facility] Xvkpftpspk2186 [place] [phone]. Devin Suresh Platelet mean volume (Bld) [Entitic vol] 8.4 fL Critically low 9.5-13.5 [facility] Comment on above: Performed By: #### C BC ####[facility] Cfctnulzog2793 [place] [phone]. Devin Suresh PLT 333 103/ul Normal 150-450 [facility] Comment on above: Performed By: #### C BC ####[facility] Wkwgbkdgbt3174 [place] [phone]. Devin Suresh RBC 3.87 106/ul Critically low 4.20-5.40 [facility] Comment on above: Performed By: #### C BC ####[facility] Nrvxkemyhm35[address] [place] [address]Dr. Devin Suresh WBC 9.8 103/ul Normal 4.0-11.0 [facility] Comment on above: Performed By: #### C BC ####[facility] Vprqpqinjg[address] [place] [address]Dr. Devin Suresh CT HEAD WO CONon 02-18-2022 CT HEAD WO CON Normal [facility] DEPAKENE/VALPROICon 02-19-20 22 DEPAKENE <3.0 Critically low 50.0-100.0 [facility] Comment on above: Performed By: #### C MP, VALP, HSTROPN ####[facility] Wmxtwhutgb[address] [place] [phone]. Devin Suresh ER URINE PROFILEon 2 Bilirubin Ql (U) Negative Normal NEGATIVE [facility] Comment on above: Performed By: #### U MICRO, ERUR ####[facility] Nshedcwqjf[address] [place] [address]Dr. Devin Kerwin Clarity (U) CLEAR Normal CLEAR [facility] Comment on above: Performed By: #### U MICRO, ERUR ####[facility] Piceplnkxx[address] [place] [phone]. Tishemily Suresh Color (U) LT. YELLOW Normal YELLOW [facility] Comment on above: Performed By: #### U MICRO, ERUR ####[facility] Bqmagzyehd[address] [place] [address]Dr. Devin VELAZQUEZ A micrscopic examina tion will be performed if indicated. Normal [facility] Comment on above: Performed By: #### U MICRO, ERUR ####[facility] Rhfksffpzf16[address] [place] [address]Dr. Devin Suresh Glucose Ql (U) >1000 Abnormal NEGATIVE [facility] Comment on above: Performed By: #### U MICRO, ERUR ####[facility] Ehwusvyivk[address] [place], [place] [address]Dr. Devin Suresh Hemoglobin Ql (U) SMALL Abnormal NEGATIVE [facility] Comment on above: Performed By: #### U MICRO, ERUR ####[facility] Nvcqpigyri[address] [place], [place] [address]Dr. Devin Suresh Ketones Ql (U) 40 mg/dl Abnormal NEGATIVE [facility] Comment on above: Performed By: #### U MICRO, ERUR ####[facility] Ilpxhihekq[address] [place], [place] [address]Dr. Devin Suresh LEUKOCYTES TRACE Abnormal NEGATIVE [facility] Comment on above: Performed By: #### U MICRO, ERUR ####[facility] Yhvtmnsgpn[address] [place], [place] [address]Dr. Devin Suresh Nitrite Ql (U) Positive Abnormal NEGATIVE [facility] Comment on above: Performed By: #### U MICRO, ERUR ####[facility] V[address]taefukp[address] [place], [place] [address]Dr. Devin Suresh pH (U) 7.0 [pH] Normal 5-9 [facility] Comment on above: Performed By: #### U MICRO, ERUR ####[facility] Qespxeolyk9[address] [place], [place] [address]Dr. Devin Suresh Protein (U) [Mass/Vol] 100 mg/dL Abnormal NEGATIVE/ TRACE [facility] Comment on above: Performed By: #### U MICRO, ERUR ####[facility] Xtsqbwhbpl3192 [place] [address]Dr. Devin Suresh SPEC GRAVITY 1.020 Normal 1.005-<=1.0 25 [facility] Comment on above: Performed By: #### U MICRO, ERUR ####[facility] Rzlsyirkru[address] [place] [address]Dr. Devin Suresh UR MICRO IND INDICATED Normal [facility] Comment on above: Performed By: #### U MICRO, ERUR ####[facility] [address]vlbklgbv45[address] [place] [address]Dr. Devin Suresh Urobilinogen Qn (U) 1.0 {Sheyla'U}/dL Normal 0.2 - 1. 0 [facility] Comment on above: Performed By: #### U MICRO, ERUR ####[facility] Hwadsapmxr[address] [place], [place] [address]Dr. Devin Suresh LACTATE/LACTIC ACIDon 2021 Lactate [Moles/Vol] 0.9 mmol/L Normal 0.4-1.9 [facility] Comment on above: Performed By: #### L ACT ####[facility] Gcybiqanan268[address] [place], [place] [address]Dr. Devin Suresh POINT OF CARE GLUCOSEon 01-24 Glucose [Mass/Vol] 346 mg/dL Critically high -106 [facility] Comment on above: Performed By: #### P OCGLUC ####[facility] Dajrkpumqk[address] [place], [place] [address]Dr. Devin Suresh Glucose [Mass/Vol] 272 mg/dL Critically high 74-106 [facility] Comment on above: Performed By: #### P OCGLUC ####[facility] Mhqbpmynal[address] [place], [place] [address]Dr. Devin Suresh PROF 14(COMP METB)on 022 Albumin [Mass/Vol] 3.3 g/dL Critically low 3.4-5.0 [facility] Comment on above: Performed By: #### C MP, VALP, HSTROPN ####[facility] Wfwhwlozjy[address] [place], [place] [address]Dr. Devin Suresh Albumin/Globulin [Mass ratio] 0.9 {ratio} Normal [facility] Comment on above: Performed By: #### C MP, VALP, HSTROPN ####[facility] Ijobypaiiq[address] [place] [address]Dr. Devin Suresh ALP [Catalytic activity/Vol] 130 U/L Critically high 46-116 [facility] Comment on above: Performed By: #### C MP, VALP, HSTROPN ####[facility] Bllvyzwsnb4[address] [place] [address]Dr. Devin Suresh ALT [Catalytic activity/Vol] 22 U/L Normal 14-59 [facility] Comment on above: Performed By: #### C MP, VALP, HSTROPN ####[facility] Alpefbaqqo[address] [place] [address]Dr. Tishemily Suresh Anion gap [Moles/Vol] 10.9 mmol/L Normal [facility] Comment on above: Performed By: #### C MP, VALP, HSTROPN ####[facility] Xbkzpghyeh[address] [place], [place] [address]Dr. Devin Suresh AST [Catalytic activity/Vol] 11 U/L Critically low 15-37 [facility] Comment on above: Performed By: #### C MP, VALP, HSTROPN ####[facility] Fnndukvepm32[address] [place] [address]Dr. Tishemily Suresh Bilirubin [Mass/Vol] 0.9 mg/dL Normal 0.2-1.0 [facility] Comment on above: Performed By: #### C MP, VALP, HSTROPN ####[facility] Cbgoggruyw3412 [place] [address]Dr. Devin Suresh Calcium [Mass/Vol] 8.7 mg/dL Normal 8.5-10.1 [facility] Comment on above: Performed By: #### C MP, VALP, HSTROPN ####[facility] Xaymohshfs50[address] [place] [address]Dr. Devin Suresh Chloride [Moles/Vol] 100 mmol/L Normal 98-107 [facility] Comment on above: Performed By: #### C MP, VALP, HSTROPN ####[facility] Styqotohpq6108 [place] [address]Dr. Devin Suresh CO2 [Moles/Vol] 29.4 mmol/L Normal 21.0-32.0 [facility] Comment on above: Performed By: #### C MP, VALP, HSTROPN ####[facility] Hdbvtehiow[address] [place], [place] [address]Dr. Devin Suresh Creatinine [Mass/Vol] 0.87 mg/dL Normal 0.55-1.02 [facility] Comment on above: Performed By: #### C MP, VALP, HSTROPN ####[facility] Plsrwqyzlt[address] [place], [place] [address]Dr. Devin Suresh EGFR-AF [place] >60 Normal >=60 [facility] Comment on above: Performed By: #### C MP, VALP, HSTROPN ####[facility] Sdosmllbdu[address] [place], [place] [address]Dr. Devin Suresh EGFR-NON AF [place] >60 Normal >=60 [facility] Comment on above: Performed By: #### C MP, VALP, HSTROPN ####[facility] Eiitzwuhfp[address] [place], [place] [address]Dr. Devin Suresh Globulin (S) [Mass/Vol] 3.8 g/dL Normal [facility] Comment on above: Performed By: #### C MP, VALP, HSTROPN ####[facility] Kmyecdgckz[address] [place], [place] [address]Dr. Devin Suresh Glucose [Mass/Vol] 282 mg/dL Critically high 74-106 [facility] Comment on above: Performed By: #### C MP, VALP, HSTROPN ####[facility] Rlmrfmaubn[address] [place], [place] [address]Dr. Devin Suresh Potassium [Moles/Vol] 3.3 mmol/L Critically low 3.5-5.1 [facility] Comment on above: Performed By: #### C MP, VALP, HSTROPN ####[facility] Ebxtparefd[address] [place] [address]Dr. Devin Suresh Protein [Mass/Vol] 7.1 g/dL Normal 6.4-8.2 [facility] Comment on above: Performed By: #### C MP, VALP, HSTROPN ####[facility] [address]zdmnyjseg80[address] [place] [address]Dr. Devin Suresh Sodium [Moles/Vol] 137 mmol/L Normal 136-145 [facility] Comment on above: Performed By: #### C MP, VALP, HSTROPN ####[facility] Prcuztddcv99[address] [place] [address]Dr. Devin Suresh Urea nitrogen [Mass/Vol] 14.0 mg/dL Normal 7.0-18.0 [facility] Comment on above: Performed By: #### C MP, VALP, HSTROPN ####[facility] Kkvfmafrdy[address] [place], [place] [address]Dr. Deivn Suresh Urea nitrogen/Creatinine [Mass ratio] 16.1 mg/mg Normal [facility] Comment on above: Performed By: #### C MP, VALP, HSTROPN ####[facility] T[address]tdshusm[address] [place], [place] [address]Dr. Devin Suresh TROPONIN, HIGH SENSITIVITYon 02-18-2022 HSTROP 11.4 pg/mL Normal 4.0-51.3 [facility] Comment on above: Result Comment: CUT- OFF POINTS HAVE BEEN ESTABLISHED BASED ON THE FOURTH UNIVERSAL DEFINITIONS OF MYOCARDIALINFARCTION. THE UPPER REFERENCE LIMIT (URL) OF TROPONIN, DEFINED THE 99TH PERCENTILE OFcTnI DISTRIBUTION IN A REFERENCE POPULATION, HAS BEEN CONFIRMED THE DECISION THRESHOLDFOR ND DIAGNOSIS. Performed By: #### C MP, VALP, HSTROPN ####[facility] [address]llngl[address] [place] [address]Dr. Devin Suresh URINE MICROSCOPIC ONLYon BACTERIA MODERATE Abnormal NONE SEEN [facility] Comment on above: Performed By: #### U MICRO, ERUR ####[facility] V[address]ms[address]pegtx40[address] [place] [address]Dr. Devin Suresh Bacteria identified Cx Nom (U) INDICATED Normal [facility] Comment on above: Performed By: #### U MICRO, ERUR ####[facility] Axvozptjvc[address] [place] [address]Dr. Devin Suresh CAST NONE SEEN Normal NONE SEEN [facility] Comment on above: Performed By: #### U MICRO, ERUR ####[facility] [address] [place] [address]Dr. Devin Suresh Crystals LM Nom (Urine sed) SEEN Abnormal NONE SEEN [facility] Comment on above: Performed By: #### U MICRO, ERUR ####[facility] [address] [place], [place] [address]Dr. Devin Suresh Epithelial cells LM Ql (Urine sed) FEW Abnormal NONE SEEN /RARE [facility] Comment on above: Performed By: #### U MICRO, ERUR ####[facility] [address] [place] [address]Dr. Devin Suresh MUCOUS NONE SEEN Normal NONE SEEN [facility] Comment on above: Performed By: #### U MICRO, ERUR ####[facility] [address] [place] [address]Dr. Devin Suresh RBC 2-5 Abnormal 0-2 [facility] Comment on above: Performed By: #### U MICRO, ERUR ####[facility] [address] [place] [address]Dr. Devin Suresh WBC (U) [#/Vol] /uL Abnormal NONE SEEN [facility] Comment on above: Performed By: #### U MICRO, ERUR ####[facility] [address] [place], [place] [address]Dr. Devin Suresh XR CHEST 1 Von 02-18-2022 XR CHEST 1 V Normal [facility] CT HEAD WO CONon 02-06-2022 CT HEAD WO CON Normal [facility] CHEMISTRYOrdered By: Lab ROP User on 01-24-2022 Glucose [Mass/Vol] 66 mg/dL Normal 55 - 99 mg/dL [facility] POC Subsection Comment on above: Result Comment: Peter yeh RN/ POC Device SN [id number] Invalid Interpretation Code [facility] POC Subsection POC User ID [id number] Invalid Interpretation Code [facility] POC Subsection POC Username LAURA BRYANT Invalid Interpretation Code [facility] POC Subsection CHEMISTRYOrdered By: SYSTEM SYSTEM on 01-24-2022 Albumin [Mass/Vol] 3.7 g/dL Normal 3.3 - 5.0 gm/dL [facility] Albumin/Globulin [Mass ratio] 1.2 {ratio} Normal 1.1 - 2.2 [facility] ALP [Catalytic activity/Vol] 76 [iU]/d Normal 21 - 98 Int._Unit/L [facility] ALT No additional P-5'-P [Catalytic activity/Vol] 13 [iU]/d Normal 6 - 46 Int._Unit/L [facility] Anion gap [Moles/Vol] 12 mmol/L Normal 6 - 16 mEq/L [facility] AST [Catalytic activity/Vol] 15 [iU]/d Normal 5 - 43 Int._Unit/L [facility] Bilirubin [Mass/Vol] 0.5 mg/dL Normal 0.0 - 1 .1 mg/dL [facility] Bilirubin.direct [Mass/Vol] 0.1 mg/dL Normal 0.1 - 0.4 mg/dL [facility] Bilirubin.indirect [Mass or moles/Vol] 0.4 mg/dL Normal 0.1 - 0.9 mg/dL [facility] Calcium [Mass/Vol] 9.0 mg/dL Normal 8.9 - 11. 1 mg/dL [facility] Chloride [Moles/Vol] 105 mmol/L Normal 101 - 1 11 mmol/L [facility] CO2 [Moles/Vol] 25 mmol/L Normal 21 - 31 mmol/L [facility] Creatinine [Mass/Vol] 0.7 mg/dL Normal 0.5 - 1.3 mg/dL [facility] GFR/1.73 sq M.predicted among blacks MDRD (S/P/Bld) [Vol rate/Area] mL/min/1.73 m2 Normal >=59mL/min/ 1.73 m2 [facility] Chem S GFR/1.73 sq M.predicted among non-blacks MDRD (S/P/Bld) [Vol rate/Area] mL/min/1.73 m2 Normal >=59mL/min/ 1.73 m2 [facility] Chem S Globulin (S) [Mass/Vol] 3.1 g/dL Normal 1.4 - 4.0 gm/dL [facility] Glucose [Mass/Vol] 81 mg/dL Normal 55 - 199 mg/dL [facility] Lipase [Catalytic activity/Vol] 29 U/L Normal 13 - 58 unit/L [facility] Potassium [Moles/Vol] 3.0 mmol/L Low 3.5 - 5.3 mmol/L [facility] Protein [Mass/Vol] 6.8 g/dL Normal 6.0 - 7.8 gm/dL [facility] Sodium [Moles/Vol] 139 mmol/L Normal 135 - 145 mmol/L [facility] Urea nitrogen [Mass/Vol] 12 mg/dL Normal 5 - 21 mg/dL [facility] Urea nitrogen/Creatinine [Mass ratio] 17 mg/mg Normal 10 - 20 [facility] HEMATOLOGYOrdered By: SYSTEM SYSTEM on 01-24-2022 Basophils/100 WBC (Bld) 1.0 % Normal 0.0 - 2.0 % [facility]eAutoSS Basophils/Leukocytes Auto (Bld) [Pure # fraction] 0.1 E9/L Normal 0.0 - 0.2 E9/L [facility]Auto[facility] Eosinophils/100 WBC (Bld) 1.4 % Normal 0.0 - 8.0 % [facility]eAuto[facility] Eosinophils/Leukocyte s Auto (Bld) [Pure # fraction] 0.1 E9/L Normal 0.0 - 0.5 E9/L [facility]eAuto[facility] Lymphocytes/100 WBC (Bld) 24.9 % Normal 14.0 - 50.0 % [facility]eAuto[facility] Lymphocytes/Leukocyte s Auto (Bld) [Pure # fraction] 2.2 E9/L Normal 1.0 - 4.0 E9/L [facility]eAutoSS Monocytes/100 WBC (Bld) 4.6 % Normal 4.0 - 14.0 % [facility]eAutoSS Monocytes/Leukocytes Auto (Bld) [Pure # fraction] 0.4 E9/L Normal 0.2 - 1.0 E9/L [facility]Auto[facility] Neutrophils/100 WBC (Bld) 68.1 % Normal 36.0 - 75.0 % [facility]eAutoSS Neutrophils/Leukocyte s Auto (Bld) [Pure # fraction] 6.1 E9/L Normal 2.0 - 7.5 E9/L [facility] HEMATOLOGYOrdered By: Mansi Cortez on 01-24-2022 Erythrocyte distribution width (RBC) [Ratio] 13.1 % Normal 10.9 - 14.2 % [facility] Hematocrit (Bld) [Volume fraction] 38.2 % Normal 34.0 - 46.0 % [facility]eAuto[facility] Hemoglobin (Bld) [Mass/Vol] 13.3 g/dL Normal 12.0 - 16.0 gm/dL [facility]Auto[facility] MCH (RBC) [Entitic mass] 30.6 pg Normal 27.0 - 34.0 pg [facility]Auto[facility] MCHC (RBC) [Mass/Vol] 34.8 g/dL Normal 31.4 - 36.0 gm/dL [facility]Auto[facility] MCV (RBC) [Entitic vol] 87.8 fL Normal 80.0 - 100.0 fL [facility] Platelet mean volume (Bld) [Entitic vol] 6.8 fL Normal 6.4 - 10.8 fL [facility]eAutoSS Platelets (Bld) [#/Vol] 362.0 E9/L Normal 150.0 - 500.0 E9/L [facility]eAuto[facility] RBC (Bld) [#/Vol] 4.4 E12/L Normal 4.3 - 5.9 E12/L [facility] HemeAutoSS WBC corrected for nucl RBC Auto (Bld) [#/Vol] 9.0 E9/L Normal 4.0 - 11.0 E9/L [facility]Auto[facility] SEROLOGYOrdered By: Lawrence Natarajna on 01-24-2022 Beta hCG Ql Negative (01/24/22 11:10 AM) Normal [facility] Man Sero URINALYSISOrdered By: Marvin Natarajan on 01-24-2022 Bacteria LM Ql (Urine sed) Trace /HPF Normal Trace/HPF [facility] Auto SS Bilirubin Ql (U) Negative (01/24/22 12:40 PM) Normal Negative [facility] UA Auto SS Clarity (U) Clear (01/24/22 12:40 PM) Normal Clear [facility] UA Auto SS Color (U) Yellow (01/24/22 12:40 PM) Normal Yellow [facility] UA Auto SS Epithelial cells.squamous LM.HPF (Urine sed) [#/Area] 5-8 /HPF Normal 0-2/HPF [facility] UA Aut o SS Glucose Test strip (U) [Mass/Vol] Negative (01/24/22 12:40 PM) Normal Negative [facility] UA Auto SS Hemoglobin Ql (U) Negative (01/24/22 12:40 PM) Normal Negative [facility] UA Auto SS Ketones (U) [Mass/Vol] Negative (01/24/22 12:40 PM) Normal Negative [facility] UA Auto SS [place].plasma/Lithiu m.RBC (Bld) [Mass ratio] 0-3 /HPF Normal 0-3/HPF [facility] UA Auto SS Nitrite Ql (U) Negative (01/24/22 12:40 PM) Normal Negative [facility] UA Auto SS pH (U) 6.0 *NA* (01/24/22 12:40 PM) Invalid Interpretation Code 5.0 - 9.0 [facility] UA Auto SS Protein (U) [Mass/Vol] Trace *ABN* (01/24/22 12:40 PM) Invalid Interpretation Code Negative [facility] UA Auto SS Specific gravity (U) [Rel density] 1.010 *NA* (01/24/22 12:40 PM) Invalid Interpretation Code 1.005 - 1.030 [facility] Auto SS UA Spec Desc Clean Catch (01/24/22 12:40 PM) Normal [facility] Auto SS Urobilinogen Qn (U) 0.6123413 {Sheyla'U}/dL Normal 0.0 - 1.0 EU/dL [facility] UA Auto SS WBC Auto Ql (U) Negative (01/24/22 12:40 PM) Normal Negative [facility] UA Auto SS WBC LM.HPF (Urine sed) [#/Area] 0-5 /HPF Normal 0-5/HPF [facility] UA Auto SS CHEMISTRYOrdered By: SYSTEM SYSTEM on 01-09-2022 Troponin I.cardiac [Mass/Vol] 4.80 pg/mL Low 10.10 - 27.10 pg/mL [facility] Troponin I.cardiac [Mass/Vol] 4.40 pg/mL Low 10.10 - 27.10 pg/mL [facility] Albumin [Mass/Vol] 3.3 g/dL Normal 3.3 - 5.0 gm/dL [facility] Albumin/Globulin [Mass ratio] 1.1 {ratio} Normal 1.1 - 2.2 [facility] ALP [Catalytic activity/Vol] 75 [iU]/d Normal 21 - 98 Int._Unit/L [facility] ALT No additional P-5'-P [Catalytic activity/Vol] 13 [iU]/d Normal 6 - 46 Int._Unit/L [facility] Anion gap [Moles/Vol] 12 mmol/L Normal 6 - 16 mEq/L [facility] AST [Catalytic activity/Vol] 14 [iU]/d Normal 5 - 43 Int._Unit/L [facility] Bilirubin [Mass/Vol] 0.3 mg/dL Normal 0.0 - 1 .1 mg/dL [facility] Bilirubin.direct [Mass/Vol] 0.1 mg/dL Normal 0.1 - 0.4 mg/dL [facility] Bilirubin.indirect [Mass or moles/Vol] 0.2 mg/dL Normal 0.1 - 0.9 mg/dL [facility] Calcium [Mass/Vol] 8.7 mg/dL Low 8.9 - 11. 1 mg/dL [facility] Chloride [Moles/Vol] 104 mmol/L Normal 101 - 1 11 mmol/L [facility] CO2 [Moles/Vol] 27 mmol/L Normal 21 - 31 mmol/L [facility] Creatinine [Mass/Vol] 0.8 mg/dL Normal 0.5 - 1.3 mg/dL [facility] GFR/1.73 sq M.predicted among blacks MDRD (S/P/Bld) [Vol rate/Area] mL/min/1.73 m2 Normal >=59mL/min/ 1.73 m2 [facility] Chem S GFR/1.73 sq M.predicted among non-blacks MDRD (S/P/Bld) [Vol rate/Area] mL/min/1.73 m2 Normal >=59mL/min/ 1.73 m2 [facility] Chem S Globulin (S) [Mass/Vol] 2.9 g/dL Normal 1.4 - 4.0 gm/dL [facility] Glucose [Mass/Vol] 137 mg/dL Normal 55 - 199 mg/dL [facility] Magnesium [Mass/Vol] 1.2 mg/dL Low 1.3 - 2 .4 mg/dL [facility] Potassium [Moles/Vol] 3.5 mmol/L Normal 3.5 - 5.3 mmol/L [facility] Protein [Mass/Vol] 6.2 g/dL Normal 6.0 - 7.8 gm/dL [facility] Sodium [Moles/Vol] 139 mmol/L Normal 135 - 145 mmol/L [facility] Remisol Troponin I.cardiac [Mass/Vol] 5.40 pg/mL Low 10.10 - 27.10 pg/mL [facility] Remisol Urea nitrogen [Mass/Vol] 13 mg/dL Normal 5 - 21 mg/dL [facility] Remisol Urea nitrogen/Creatinine [Mass ratio] 16 mg/mg Normal 10 - 20 [facility] Remisol CHEMISTRYOrdered By: Lab ROP User on 01-09-2022 Glucose [Mass/Vol] 178 mg/dL High 55 - 99 mg/dL [facility] POC Subsection POC Device SN [id number] Invalid Interpretation Code [facility] POC Subsection POC User ID [id number] Invalid Interpretation Code [facility] POC Subsection POC Username DANNIELLE HUFF Invalid Interpretation Code [facility] POC Subsection CHEMISTRYOrdered By: Shannen shipley on 01-09-2022 Natriuretic peptide B (Bld) [Mass/Vol] 17 pg/mL Normal 5 - 80 pg/mL [facility] HemeManSS COAGULATIONOrdered By: Richa Murphy on 01-09-2022 aPTT Coag (PPP) [Time] 36.7 s High 25.1 - 36.5 second(s) [facility] Auto Coag Fibrin D-dimer FEU (PPP) [Mass/Vol] 494 ng/mL FEU Normal 215 - 500 ng/mL FEU [facility] Auto Coag INR Coag (PPP) [Relative time] 1.0 {INR} Invalid Interpretation Code [facility] Auto Coag PT Coag (PPP) [Time] 10.5 s Normal 9.4 - 1 2.5 second(s) [facility] Auto Coag HEMATOLOGYOrdered By: SYSTEM SYSTEM on 01-09-2022 Basophils/100 WBC (Bld) 0.5 % Normal 0.0 - 2.0 % [facility] HemeAutoSS Basophils/Leukocytes Auto (Bld) [Pure # fraction] 0.0 E9/L Normal 0.0 - 0.2 E9/L [facility] Eosinophils/100 WBC (Bld) 1.9 % Normal 0.0 - 8.0 % [facility]eAutoSS Eosinophils/Leukocyte s Auto (Bld) [Pure # fraction] 0.1 E9/L Normal 0.0 - 0.5 E9/L [facility]eAutoSS Lymphocytes/100 WBC (Bld) 25.4 % Normal 14.0 - 50.0 % [facility]eAutoSS Lymphocytes/Leukocyte s Auto (Bld) [Pure # fraction] 1.8 E9/L Normal 1.0 - 4.0 E9/L [facility]eAutoSS Monocytes/100 WBC (Bld) 6.2 % Normal 4.0 - 14.0 % [facility]eAutoSS Monocytes/Leukocytes Auto (Bld) [Pure # fraction] 0.4 E9/L Normal 0.2 - 1.0 E9/L [facility]eAutoSS Neutrophils/100 WBC (Bld) 66.0 % Normal 36.0 - 75.0 % [facility]eAutoSS Neutrophils/Leukocyte s Auto (Bld) [Pure # fraction] 4.6 E9/L Normal 2.0 - 7.5 E9/L [facility] HEMATOLOGYOrdered By: Shannen Sosa on 01-09-2022 Erythrocyte distribution width (RBC) [Ratio] 13.3 % Normal 10.9 - 14.2 % [facility]Auto[facility] Hematocrit (Bld) [Volume fraction] 38.6 % Normal 34.0 - 46.0 % [facility] HemeAutoSS Hemoglobin (Bld) [Mass/Vol] 13.0 g/dL Normal 12.0 - 16.0 gm/dL [facility]eAutoSS MCH (RBC) [Entitic mass] 29.7 pg Normal 27.0 - 34.0 pg [facility]AutoSS MCHC (RBC) [Mass/Vol] 33.7 g/dL Normal 31.4 - 36.0 gm/dL [facility]Auto[facility] MCV (RBC) [Entitic vol] 88.2 fL Normal 80.0 - 100.0 fL [facility]Auto[facility] Platelet mean volume (Bld) [Entitic vol] 7.6 fL Normal 6.4 - 10.8 fL [facility]eAutoSS Platelets (Bld) [#/Vol] 278.0 E9/L Normal 150.0 - 500.0 E9/L [facility]Auto[facility] RBC (Bld) [#/Vol] 4.4 E12/L Normal 4.3 - 5.9 E12/L [facility]eAuto[facility] WBC corrected for nucl RBC Auto (Bld) [#/Vol] 6.9 E9/L Normal 4.0 - 11.0 E9/L [facility] URINALYSISOrdered By: Eben Murphy on 01-09-2022 Bacteria LM Ql (Urine sed) Trace /HPF Normal Trace/HPF [facility]A Auto SS Bilirubin Ql (U) Negative (01/09/22 1:58 PM) Normal Negative [facility] UA Auto SS Clarity (U) Slightly Cloudy *ABN* (01/09/22 1:58 PM) Invalid Interpretation Code Clear [facility]A Auto SS Color (U) Yellow (01/09/22 1:58 PM) Normal Yellow [facility] UA Auto SS Epithelial cells.squamous LM.HPF (Urine sed) [#/Area] 5-8 /HPF Normal 0-2/HPF [facility] UA Aut o SS Glucose Test strip (U) [Mass/Vol] 1+ *ABN* (01/09/22 1:58 PM) Invalid Interpretation Code Negative [facility] UA Auto SS Hemoglobin Ql (U) Negative (01/09/22 1:58 PM) Normal Negative [facility]A Auto SS Ketones (U) [Mass/Vol] Negative (01/09/22 1:58 PM) Normal Negative [facility] UA Auto SS [place].plasma/Lithiu m.RBC (Bld) [Mass ratio] 0-3 /HPF Normal 0-3/HPF [facility] UA Auto SS Mucus Ql (Urine sed) Trace (01/09/22 1:58 PM) Normal [facility] UA Auto SS Nitrite Ql (U) Negative (01/09/22 1:58 PM) Normal Negative [facility]A Auto SS pH (U) 6.0 *NA* (01/09/22 1:58 PM) Invalid Interpretation Code 5.0 - 9.0 [facility] Auto SS Protein (U) [Mass/Vol] Negative (01/09/22 1:58 PM) Normal Negative [facility] UA Auto SS Specific gravity (U) [Rel density] >=1.030 *NA* (01/09/22 1:58 PM) Invalid Interpretation Code 1.005 - 1.030 [facility] UA Auto SS UA Spec Desc Clean Catch (01/09/22 1:58 PM) Normal [facility] UA Auto SS Urobilinogen Qn (U) 0.5048881 {Sheyla'U}/dL Normal 0.0 - 1.0 EU/dL [facility] UA Auto SS WBC Auto Ql (U) Negative (01/09/22 1:58 PM) Normal Negative [facility] UA Auto SS WBC LM.HPF (Urine sed) [#/Area] 0-5 /HPF Normal 0-5/HPF [facility] UA Auto SS CULTURE URINEon 01-04-2022 CULTURE URINE Normal [facility] Comment on above: Performed By: #### U RCX ####[facility] [address] [place] [address]Dr. Devin Suresh CARDIAC LAURA 3-6on 2 CK [Catalytic activity/Vol] 38 U/L Normal 26-192 [facility] Comment on above: Performed By: #### C MREP ####[facility] [address] [place] [address]Dr. Devin Suresh CK.MB [Mass/Vol] 0.86 ng/mL Normal <=3.60 [facility] Comment on above: Performed By: #### C MREP ####[facility] [address] [place] [address]Dr. Devin Suresh HSTROP 7.8 pg/mL Normal 4.0-51.3 [facility] Comment on above: Result Comment: CUT- OFF POINTS HAVE BEEN ESTABLISHED BASED ON THE FOURTH UNIVERSAL DEFINITIONS OF MYOCARDIALINFARCTION. THE UPPER REFERENCE LIMIT (URL) OF TROPONIN, DEFINED THE 99TH PERCENTILE OFcTnI DISTRIBUTION IN A REFERENCE POPULATION, HAS BEEN CONFIRMED THE DECISION THRESHOLDFOR ND DIAGNOSIS. Performed By: #### C MREP ####[facility] [address] [place] [address]Dr. Devin Suresh CT ABD/PELVIS WO CONon 01-02 CT ABD/PELVIS WO CON Normal [facility] CT HEAD WO CONon 01-02-2022 CT HEAD WO CON Normal [facility] ER URINE PROFILEon 2 Bilirubin Ql (U) SMALL Abnormal NEGATIVE [facility] Comment on above: Performed By: #### U MICRO, ERUR ####[facility] [address] [place] [address]Dr. Devin Suresh Clarity (U) CLEAR Normal CLEAR [facility] Comment on above: Performed By: #### U MICRO, ERUR ####[facility] [address] [place] [address]Dr. Devin Suresh Color (U) YELLOW Normal YELLOW [facility] Comment on above: Performed By: #### U MICRO, ERUR ####[facility] [address] [place] [address]Dr. Devin Suresh ERUAHD A micrscopic examina tion will be performed if indicated. Normal [facility] Comment on above: Performed By: #### U MICRO, ERUR ####[facility] [address] [place] [address]Dr. Devin Suresh Glucose Ql (U) >1000 Abnormal NEGATIVE [facility] Comment on above: Performed By: #### U MICRO, ERUR ####[facility] [address] [place], [place] [address]Dr. Devin Suresh Hemoglobin Ql (U) SMALL Abnormal NEGATIVE [facility] Comment on above: Performed By: #### U MICRO, ERUR ####[facility] [address] [place], [place] [address]Dr. Devin Suresh Ketones Ql (U) 15 mg/dl Abnormal NEGATIVE [facility] Comment on above: Performed By: #### U MICRO, ERUR ####[facility] [address] [place] [address]Dr. Devin Suresh LEUKOCYTES SMALL Abnormal NEGATIVE [facility] Comment on above: Performed By: #### U MICRO, ERUR ####[facility] [address] [place] [address]Dr. Devin Suresh Nitrite Ql (U) Positive Abnormal NEGATIVE [facility] Comment on above: Performed By: #### U MICRO, ERUR ####[facility] [address] [place] [address]Dr. Devin Suresh pH (U) 5.0 [pH] Normal 5-9 [facility] Comment on above: Performed By: #### U MICRO, ERUR ####[facility] [address] [place], [place] [address]Dr. Devin Suresh Protein (U) [Mass/Vol] 100 mg/dL Abnormal NEGATIVE/ TRACE [facility] Comment on above: Performed By: #### U MICRO, ERUR ####[facility] [address] [place], [place] [address]Dr. Tishemily Suresh SPEC GRAVITY >=1.030 Abnormal 1.005-<=1.[address] [place] [address] Comment on above: Performed By: #### U MICRO, ERUR ####[facility] [address] [place], [place] [address]Dr. Devin Suresh UR MICRO IND INDICATED Normal [facility] Comment on above: Performed By: #### U MICRO, ERUR ####[facility] [address] [place], [place] [address]Dr. Devin Suresh Urobilinogen Qn (U) 0.2 {Sheyla'U}/dL Normal 0.2 - 1. 0 [facility] Comment on above: Performed By: #### U MICRO, ERUR ####[facility] [address] [place], [place] [address]Dr. Devin Suresh LACTATE/LACTIC ACIDon 2021 Lactate [Moles/Vol] 1.1 mmol/L Normal 0.4-1.9 [facility] Comment on above: Performed By: #### L ACT ####[facility] [address] [place], [place] [address]Dr. Devin Suresh URINE MICROSCOPIC ONLYon BACTERIA LARGE Abnormal NONE SEEN [facility] Comment on above: Performed By: #### U MICRO, ERUR ####[facility] [address] [place], [place] [address]Dr. Devin Suresh Bacteria identified Cx Nom (U) INDICATED Normal [facility] Comment on above: Performed By: #### U MICRO, ERUR ####[facility] [address] [place] [address]Dr. Devin Suresh CAST NONE SEEN Normal NONE SEEN [facility] Comment on above: Performed By: #### U MICRO, ERUR ####[facility] [address] [place] [address]Dr. Devin Suresh Crystals LM Nom (Urine sed) NONE SEEN Normal NONE SEEN [facility] Comment on above: Performed By: #### U MICRO, ERUR ####[facility] [address] [place] [address]Dr. Devin Suresh Epithelial cells LM Ql (Urine sed) FEW Abnormal NONE SEEN /RARE [facility] Comment on above: Performed By: #### U MICRO, ERUR ####[facility] [address] [place] [address]Dr. Tishlan Suresh MUCOUS NONE SEEN Normal NONE SEEN [facility] Comment on above: Performed By: #### U MICRO, ERUR ####[facility] [address] [place] [address]Dr. Devin Suresh RBC 0-2 Normal 0-2 [facility] Comment on above: Performed By: #### U MICRO, ERUR ####[facility] [address] [place], [place] [address]Dr. Devin Suresh WBC 5-10 Abnormal NONE SEEN [facility] Comment on above: Performed By: #### U MICRO, ERUR ####[facility] [address] [place], [place] [address]Dr. Devin Suresh XR CHEST 1 Von 01-02-2022 XR CHEST 1 V Normal [facility] CARDIAC LAURA ADMITon 022 CK [Catalytic activity/Vol] 40 U/L Normal 26-192 [facility] Comment on above: Performed By: #### HOWARD Elizondo MP ####[facility] [address] [place] [address]Dr. Devin Suresh CK.MB [Mass/Vol] 0.95 ng/mL Normal <=3.60 [facility] Comment on above: Performed By: #### HOWARD Elizondo MP ####[facility] [address] [place] [id number]. Devin Suresh HSTROP 6.7 pg/mL Normal 4.0-51.3 [facility] Comment on above: Result Comment: CUT- OFF POINTS HAVE BEEN ESTABLISHED BASED ON THE FOURTH UNIVERSAL DEFINITIONS OF MYOCARDIALINFARCTION. THE UPPER REFERENCE LIMIT (URL) OF TROPONIN, DEFINED THE 99TH PERCENTILE OFcTnI DISTRIBUTION IN A REFERENCE POPULATION, HAS BEEN CONFIRMED THE DECISION THRESHOLDFOR ND DIAGNOSIS. Performed By: #### B HOWARD PERAZA ####[facility] [address] [place] [id number]. Tishemily Suresh MELANIE 53 ng/mL Normal 9-82 [facility] Comment on above: Performed By: #### B HOWARD PERAZA ####[facility] [address] [place] [address]Dr. Tishemily Suresh CBC AUTO DIFFon 01-01-2022 BASO # 0.1 103/ul Normal 0.0-0.1 [facility] Comment on above: Performed By: #### C BC ####[facility] [address]sh[address] [place] [address]Dr. Devin Suresh Basophils/100 WBC (Bld) 0.5 % Normal 0.2-2.0 [facility] Comment on above: Performed By: #### C BC ####[facility] [address] [place], [place] [address]Dr. Devin Kerwin EO # 0.1 103/ul Normal 0.0-0.7 [facility] Comment on above: Performed By: #### C BC ####[facility] [address] [place] [address]Dr. Devin Kerwin Eosinophils/100 WBC (Bld) 0.7 % Critically low 0.9-7.0 [facility] Comment on above: Performed By: #### C BC ####[facility] [address] [place], [place] [address]Dr. Devin Suresh Erythrocyte distribution width (RBC) [Ratio] 12.5 % Normal 11.0-15.0 [facility] Comment on above: Performed By: #### C BC ####[facility] [address] [place] [address]Dr. Devin Suresh Hematocrit (Bld) [Volume fraction] 43.0 % Normal 36.0-48.0 [facility] Comment on above: Performed By: #### C BC ####[facility] [address] [place] [address]Dr. Devin Suresh Hemoglobin (Bld) [Mass/Vol] 15.2 g/dL Normal 12.0-16.0 [facility] Comment on above: Performed By: #### C BC ####[facility] [address] [place], [place] [address]Dr. Devin Suresh IG # 0.05 10e3/ul Critically high 0.00-0.03 [facility] Comment on above: Performed By: #### C BC ####[facility] [address] [place], [place] [address]Dr. Devin Suresh IG % 0.4 % Normal 0.0-0.5 [facility] Comment on above: Performed By: #### C BC ####[facility] [address] [place], [place] [address]Dr. Devin Suresh LYMPH # 2.0 103/ul Normal 1.2-3.8 [facility] Comment on above: Performed By: #### C BC ####[facility] [address] [place], [place] [address]Dr. Devin Suresh Lymphocytes/100 WBC (Bld) 15.1 % Critically low 20.5-60.0 [facility] Comment on above: Performed By: #### C BC ####[facility] [facility] [address] [place], [place] [address]Dr. Devin Suresh MANUAL DIFF REQ NO Normal [facility] Comment on above: Performed By: #### C BC ####[facility] Ikt[address]xa[address] [place], [place] [address]Dr. Devin Suresh MCH (RBC) [Entitic mass] 30.2 pg Normal 26.7-34.0 [facility] Comment on above: Performed By: #### C BC ####[facility] [address] [place] [id number]. Tishemily Suresh MCHC (RBC) [Mass/Vol] 35.3 g/dL Critically high 29.9-35.2 [facility] Comment on above: Performed By: #### C BC ####[facility] [address] [place] [id number]. Devin Suresh MCV (RBC) [Entitic vol] 85.3 fL Normal 81.0-99.0 [facility] Comment on above: Performed By: #### C BC ####[facility] G[address] [place], [place] [address]Dr. Devin Suresh MONO # 0.7 103/ul Normal 0.3-0.8 [facility] Comment on above: Performed By: #### C BC ####[facility] Gnvb[address]vbce[address] [place], [place] [address]Dr. Devin Suresh Monocytes/100 WBC (Bld) 5.6 % Normal 1.7-12.0 [facility] Comment on above: Performed By: #### C BC ####[facility] [address] [place], [place] [address]Dr. Devin Suresh NEUT # 10.2 103/ul Critically high 1.4-6.5 [facility] Comment on above: Performed By: #### C BC ####[facility] [address] [place], [place] [address]Dr. Devin Suresh Neutrophils/100 WBC (Bld) 77.7 % Critically high 43.0-75.0 [facility] Comment on above: Performed By: #### C BC ####[facility] [address] [place], [place] [address]Dr. Devin Suresh Platelet mean volume (Bld) [Entitic vol] 9.1 fL Critically low 9.5-13.5 [facility] Comment on above: Performed By: #### C BC ####[facility] [address] [place], [place] [address]Dr. Devin Suresh PLT 420 103/ul Normal 150-450 [facility] Comment on above: Performed By: #### C BC ####[facility] [address] [place], [place] [address]Te. Devin Suresh RBC 5.04 106/ul Normal 4.20-5.40 [facility] Comment on above: Performed By: #### C BC ####[facility] [address] [place], [place] [address]Za. Devin Suresh WBC 13.1 103/ul Critically high 4.0-11.0 [facility] Comment on above: Performed By: #### C BC ####[facility] [address] [place], [place] [address]Cl. Devin Suresh Covid-19 PCR (CVDTBH)on 12-23 SARS-CoV-2 (COVID-19) RNA EBONIE+probe Ql (Unsp spec) Not detected Normal NOT DETECTED [facility] Comment on above: Result Comment: When diagnostic testing is negative, the possibility of a false negative should be considered inthe context of a patient's recent exposures and the presence of clinical signs and symptomsconsistent with SARS-CoV-2.This test is not yet approved or cleared by the [place] FDA. When there are no FDA-approved or cleared tests available, and other criteria are met, FDA can make tests available under an emergency access mechanism called an Emergency Use Authorization (EUA). The EUA for this test is supported by the Product Developer of Health and Human Service's declaration that circumstances exist to justify the emergency use of in vitro diagnostics for the detection and/or diagnosis of the virus that causes COVID-19. This EUA will remain in effect for the duration of the COVID-19 declaration justifying emergency of IVDs, unless it is terminated or revoked by the FDA (after which the test may no longer be used). Performed By: #### C VDTBH ####[facility] [address] [place], [place] [address]Zj. Devin Suresh D-DIMERon 01-01-2022 D-DIMER 0.36 mg/L FEU Normal <=0.59 [facility] Comment on above: Performed By: #### D DIM ####[facility] [address] [place] [id number]. Devin Suresh D-DIMER COMMENTS SEE BELOW Normal [facility] Comment on above: Result Comment: Incr eases in D-Dimer concentration observed with thromboembolic events can be variable due to localization, size, and age of the thrombus. Therefore, a thromboembolic event cannot be diagnosed with certainty on the basis of the reference range. D-Dimers may also be elevated for a variety of disorders including: advanced age, , coronary disease, cancer, liver disease, infection, inflammation, hematoma, DIC, trauma, post-surgery, diabetes, thrombolytic or anticoagulant therapy, stress, and generalized hospitalization. Performed By: #### D DIM ####[facility] [address] [place], [place] [address]Dr. Devin Suresh LACTATE/LACTIC ACIDon 2021 Lactate [Moles/Vol] 1.8 mmol/L Normal 0.4-1.9 [facility] Comment on above: Performed By: #### L ACT ####[facility] [address] [place], [place] [address]Dr. Devin Suresh PROF CHEM 8 (BAS METB)on Anion gap [Moles/Vol] 16.5 mmol/L Normal [facility] Comment on above: Performed By: #### HOWARD Elizondo MP ####[facility] [address] [place] [address]Dr. Devin Suresh Calcium [Mass/Vol] 9.9 mg/dL Normal 8.5-10.1 [facility] Comment on above: Performed By: #### HOWARD Elizondo MP ####[facility] [address] [place] [address]Dr. Devin Suresh Chloride [Moles/Vol] 98 mmol/L Normal 98-107 [facility] Comment on above: Performed By: #### HOWARD Elizondo MP ####[facility] [address] [place] [address]Dr. Devin Suresh CO2 [Moles/Vol] 25.6 mmol/L Normal 21.0-32.0 [facility] Comment on above: Performed By: #### HOWARD Elizondo MP ####[facility] [address] [place] [address]Dr. Devin Suresh Creatinine [Mass/Vol] 1.18 mg/dL Critically high 0.55-1.02 [facility] Comment on above: Performed By: #### B STU, HOWARD ####[facility] [address] [place] [address]Dr. Devin Suresh EGFR-AF [place] 60 mL/min/1.73m2 Normal >=60 [facility] Comment on above: Performed By: #### B STU, HOWARD ####[facility] [address] [place], [place] [address]Dr. Devin Suresh EGFR-NON AF [place] 50 mL/min/1.73m2 Critically low >=60 [facility] Comment on above: Performed By: #### B STU, HOWARD ####[facility] [address] [place], [place] [address]Dr. Devin Suresh Glucose [Mass/Vol] 166 mg/dL Critically high 74-106 T [facility] Comment on above: Performed By: #### B STU, HOWARD ####[facility] [address] [place], [place] [address]Dr. Devin Suresh Potassium [Moles/Vol] 3.1 mmol/L Critically low 3.5-5.1 [facility] Comment on above: Performed By: #### B STU, HOWARD ####[facility] [address] [place], [place] [address]Dr. Devin Suresh Sodium [Moles/Vol] 137 mmol/L Normal 136-145 [facility] Comment on above: Performed By: #### B STU, CMAJONNY ####[facility] [address] [place], [place] [address]Dr. Devin Suresh Urea nitrogen [Mass/Vol] 12.0 mg/dL Normal 7.0-18.0 [facility] Comment on above: Performed By: #### B STU, CMAJONNY ####[facility] T[address] [place], [place] [address]Dr. Tishemily Suresh Urea nitrogen/Creatinine [Mass ratio] 10.2 mg/mg Normal [facility] Comment on above: Performed By: #### B MP, CMADM ####[facility] [address] [place] [address]Dr. Devin Suresh CHEMISTRYOrdered By: SYSTEM SYSTEM on 12-08-2021 Amphetamines Screen method >1000 ng/mL Ql (U) Negative (12/08/21 11:54 AM) Normal Negative [facility] Barbiturates Screen Ql (U) Negative (12/08/21 11:54 AM) Normal Negative [facility] Benzodiazepines Ql (U) Negative (12/08/21 11:54 AM) Normal Negative [facility] Cocaine Ql (U) Negative (12/08/21 11:54 AM) Normal Negative [facility] Opiates Screen Ql (U) Negative (12/08/21 11:54 AM) Normal Negative [facility] Phencyclidine Screen method >25 ng/mL Ql (U) Negative (12/08/21 11:54 AM) Normal Negative [facility] Tetrahydrocannabinol Screen method >50 ng/mL Ql (U) Negative (12/08/21 11:54 AM) Normal Negative [facility] Anion gap [Moles/Vol] 13 mmol/L Normal 6 - 16 mEq/L [facility] Calcium [Mass/Vol] 9.4 mg/dL Normal 8.9 - 11. 1 mg/dL [facility] Chloride [Moles/Vol] 103 mmol/L Normal 101 - 1 11 mmol/L [facility] CO2 [Moles/Vol] 26 mmol/L Normal 21 - 31 mmol/L [facility] Creatinine [Mass/Vol] 0.9 mg/dL Normal 0.5 - 1.3 mg/dL [facility] GFR/1.73 sq M.predicted among blacks MDRD (S/P/Bld) [Vol rate/Area] mL/min/1.73 m2 Normal >=59mL/min/ 1.73 m2 [facility] Chem S GFR/1.73 sq M.predicted among non-blacks MDRD (S/P/Bld) [Vol rate/Area] mL/min/1.73 m2 Normal >=59mL/min/ 1.73 m2 [facility] S Glucose [Mass/Vol] 236 mg/dL High 55 - 199 mg/dL [facility] Magnesium [Mass/Vol] 1.4 mg/dL Normal 1.3 - 2 .4 mg/dL [facility] Potassium [Moles/Vol] 3.8 mmol/L Normal 3.5 - 5.3 mmol/L [facility] Sodium [Moles/Vol] 138 mmol/L Normal 135 - 145 mmol/L [facility] Urea nitrogen [Mass/Vol] 16 mg/dL Normal 5 - 21 mg/dL [facility] Urea nitrogen/Creatinine [Mass ratio] 18 mg/mg Normal 10 - 20 [facility] HEMATOLOGYOrdered By: SYSTEM SYSTEM on 12-08-2021 Basophils/100 WBC (Bld) 0.7 % Normal 0.0 - 2.0 % [facility] HemeAutoSS Basophils/Leukocytes Auto (Bld) [Pure # fraction] 0.1 E9/L Normal 0.0 - 0.2 E9/L [facility] HemeAutoSS Eosinophils/100 WBC (Bld) 2.6 % Normal 0.0 - 8.0 % [facility] HemeAutoSS Eosinophils/Leukocyte s Auto (Bld) [Pure # fraction] 0.2 E9/L Normal 0.0 - 0.5 E9/L [facility] HemeAutoSS Lymphocytes/100 WBC (Bld) 24.8 % Normal 14.0 - 50.0 % [facility] HemeAutoSS Lymphocytes/Leukocyte s Auto (Bld) [Pure # fraction] 1.9 E9/L Normal 1.0 - 4.0 E9/L [facility] HemeAutoSS Monocytes/100 WBC (Bld) 6.9 % Normal 4.0 - 14.0 % [facility] HemeAutoSS Monocytes/Leukocytes Auto (Bld) [Pure # fraction] 0.5 E9/L Normal 0.2 - 1.0 E9/L [facility] HemeAutoSS Neutrophils/100 WBC (Bld) 65.0 % Normal 36.0 - 75.0 % [facility] HemeAutoSS Neutrophils/Leukocyte s Auto (Bld) [Pure # fraction] 5.0 E9/L Normal 2.0 - 7.5 E9/L [facility] HemeAutoSS HEMATOLOGYOrdered By: Mansi Cortez on 12-08-2021 Erythrocyte distribution width (RBC) [Ratio] 12.6 % Normal 10.9 - 14.2 % [facility] HemeAutoSS Hematocrit (Bld) [Volume fraction] 39.5 % Normal 34.0 - 46.0 % [facility] HemeAutoSS Hemoglobin (Bld) [Mass/Vol] 13.7 g/dL Normal 12.0 - 16.0 gm/dL [facility] HemeAutoSS MCH (RBC) [Entitic mass] 30.5 pg Normal 27.0 - 34.0 pg [facility] HemeAutoSS MCHC (RBC) [Mass/Vol] 34.7 g/dL Normal 31.4 - 36.0 gm/dL [facility] HemeAutoSS MCV (RBC) [Entitic vol] 87.7 fL Normal 80.0 - 100.0 fL [facility] HemeAutoSS Platelet mean volume (Bld) [Entitic vol] 7.3 fL Normal 6.4 - 10.8 fL [facility] HemeAutoSS Platelets (Bld) [#/Vol] 306.0 E9/L Normal 150.0 - 500.0 E9/L [facility] HemeAutoSS RBC (Bld) [#/Vol] 4.5 E12/L Normal 4.3 - 5.9 E12/L [facility] HemeAutoSS WBC corrected for nucl RBC Auto (Bld) [#/Vol] 7.7 E9/L Normal 4.0 - 11.0 E9/L [facility] HemeAutoSS Microscopic Urinalysison Bacteria, UA FEW Abnormal Negative /HPF [facility] Epithelial Cells, UA 3-5 /HPF [facility] RBC, UA 0-2 [facility] WBC, UA 3-5 [facility] No Panel Informationon 12-08 Interpretation and review of laboratory results Abnormal [facility] UR Drug Screen Rapidon 12-08 Drug Screen Comment see below Normal [facility] Comment on above: Result Comment: This method is a screening test to detect only these drug classes as part of a medical workup. Confirmatory testing by another method should be ordered if clinically indicated. Performed By: #### U DSNC #### [facility] [address] [place] [address] UR Amphetamines Rapid Screen Negative Normal Negative < [facility] Comment on above: Result Comment: Effe ctive: 12/07/17 Methodology and/or Reference Range-Cutoff has changed. Performed By: #### U DSNC #### [facility] [address] [place] [address] UR Barbiturates Rapid Screen Negative Normal Negative < [facility] Comment on above: Result Comment: Effe ctive: 12/07/17 Methodology and/or Reference Range-Cutoff has changed. Performed By: #### U DSNC #### [facility] [address] [place] [address] UR Benzo Rapid Screen Negative Normal Negative < [facility] Comment on above: Result Comment: Effe ctive: 12/07/17 Methodology and/or Reference Range-Cutoff has changed. Performed By: #### U DSNC #### [facility] [address] [place] [address] UR Cannabinoids Rapid Screen Negative Normal Negative < [facility] Comment on above: Performed By: #### U DSNC #### [facility] [address] [place] [address] UR Cocaine Rapid Screen Negative Normal Negative < [facility] Comment on above: Result Comment: Effe ctive: 12/07/17 Methodology and/or Reference Range-Cutoff has changed. Performed By: #### U DSNC #### [facility] [address] [place] [address] UR Opiates Rapid Screen Negative Normal Negative < [facility] Comment on above: Result Comment: Effe ctive: 12/07/17 Methodology and/or Reference Range-Cutoff has changed. Performed By: #### U DSNC #### [facility] [address] [place] [address] UR PCP Rapid Screen Negative Normal Negative < [facility] Comment on above: Performed By: #### U DSNC #### [facility] [address] [place] [address] UR Tricyclics Rapid Screen - Rapid Positive Abnormal Negative < [facility] Comment on above: Result Comment: Effe ctive: 12/07/17 Methodology and/or Reference Range-Cutoff has changed. Performed By: #### U DSNC #### [facility] [address] [place] [address] Urinalysis with Reflex to Cu ltureon 12-08-2021 Bilirubin Urine Negative Negative [facility] Blood, Urine Negative Negative [facility] Clarity, UA Clear Clear [facility] Color, UA Yellow Straw/Yello w [facility] Glucose, Ur 250 mg/dL Abnormal Negative [facility] Ketones Ql (U) Negative Negative mg/dL [facility] Leukocyte esterase Test strip Ql (U) TRACE Abnormal Negative [facility] Nitrite, Urine Negative Negative [facility] pH, UA 5.0 5 - 9 [facility] Protein, UA Negative Negative mg/dL [facility] Specific [place], UA 1.015 1.005 - 1.03 [facility] Urine Reflex to Culture Not Indicated [facility] Urobilinogen, Urine 0.2 NINF [facility] Urinalysis, reflex to cultur turner 12-08-2021 Urine Reflexed to Culture Not Indicated Normal [facility] Comment on above: Performed By: #### U AR #### [facility] [address] [place] [address] Bilirubin Ql (U) Negative Normal Negative [facility] Comment on above: Performed By: #### U AR #### [facility] [address] [address] Clarity (U) Clear Normal Clear [facility] Comment on above: Performed By: #### U AR #### [facility] [address] [address] Color (U) Yellow Normal Straw/[place] [facility] Comment on above: Performed By: #### U AR #### [facility] [address] [place] [address] Glucose Ql (U) 250 mg/dL Abnormal Negative [facility] Comment on above: Performed By: #### U AR #### [facility] [address] [place] [address] Hemoglobin Ql (U) Negative Normal Negative [facility] Comment on above: Performed By: #### U AR #### [facility] [address] [place] [address] Ketones Ql (U) Negative Normal Negative [facility] Comment on above: Performed By: #### U AR #### [facility] [address] [place] [address] Leukocyte esterase Test strip Ql (U) TRACE Abnormal Negative [facility] Comment on above: Performed By: #### U AR #### [facility] [address] [place] [address] Nitrite Ql (U) Negative Normal Negative [facility] Comment on above: Performed By: #### U AR #### [facility] [address] [place] [address] pH (U) 5.0 [pH] Normal 5.0-9.0 [facility] Comment on above: Performed By: #### U AR #### [facility] [address] [place] [address] Protein Ql (U) Negative Normal Negative [facility] Comment on above: Performed By: #### U AR #### [facility] [address] [place] [address] Specific gravity (U) [Rel density] 1.015 Normal 1.005-1.03 [facility] Comment on above: Performed By: #### U AR #### [facility] [address] [place] [address] Urobilinogen Qn (U) 0.2 {Sheyla'U}/dL Normal < 2.0 [facility] Comment on above: Performed By: #### U AR #### [facility] [address] [place] [address] Urine Drug Screen, Comprehen rosettaon 12-08-2021 Amphetamine Screen, Urine Negative Negative <500 ng/mL [facility] Comment on above: Effective: 12/07/17 Methodology and/or Reference Range-Cutoff has changed. Barbiturate Screen, Ur Negative Negative <200 ng/mL [facility] Comment on above: Effective: 12/07/17 Methodology and/or Reference Range-Cutoff has changed. Benzodiazepine Screen, Urine Negative Negative <150 ng/mL [facility] Comment on above: Effective: 12/07/17 Methodology and/or Reference Range-Cutoff has changed. Cannabinoid Scrn, Ur Negative Negativ e <50 ng/mL [facility] Cocaine Metabolite Screen, Urine Negative Negative <150 ng/mL [facility] Comment on above: Effective: 12/07/17 Methodology and/or Reference Range-Cutoff has changed. Drug Screen Comment: see below [facility] Comment on above: This method is a scr eening test to detect only these drug classes as part of a medical workup. Confirmatory testing by another method should be ordered if clinically indicated. Interpretation and review of laboratory results Abnormal [facility] Opiate Scrn, Ur Negative Negative <100 ng/mL [facility] Comment on above: Effective: 12/07/17 Methodology and/or Reference Range-Cutoff has changed. PCP Screen, Urine Negative Negative <25 ng/mL [facility] Tricyclic Positive Abnormal Negative <300 ng/mL [facility] Comment on above: Effective: 12/07/17 Methodology and/or Reference Range-Cutoff has changed. [facility] Urine Microscopicon 12-09-19 22 Epithelial cells LM Ql (Urine sed) 3-5 Normal [facility] Comment on above: Performed By: #### U DOMENIC #### [facility] [address] [place] [address] Urine Bacteria FEW Abnormal Negative [facility] Comment on above: Performed By: #### U DOMENIC #### [facility] [address] [place] [address] Urine RBC 0-2 Normal 0-2 [facility] Comment on above: Performed By: #### U DOMENIC #### [facility] [address] [place] [address] Urine WBC 3-5 Normal 0-5 [facility] Comment on above: Performed By: #### U DOMENIC #### [facility] [address] [place] [address] HEP B SURFACE ANTIGEN SCREEN on 12-05-2021 HBsAg Screen Negative Normal Negative [facility] Comment on above: Performed By: #### H BSANS ####[facility] [address] [place], [place] [address]Mn. Devin Suresh HEPATITIS C ANTIBODYon 12-05 Hep C Virus Ab 0.1 s/co ratio Normal 0.0-0.9 [facility] Comment on above: Result Comment: Nega tive: < 0.8 Indeterminate: 0.8 - 0.9 Positive: > 0.9 . HCV antibody alone does not differentiate between previous resolved infection and active infection. The CDC and current clinical guidelines recommend that a positive HCV antibody result be followed up with an HCV RNA test to support the diagnosis of acute HCV infection. [facility] offers Hepatitis C Virus (HCV) RNA, Diagnosis, EBONIE (669227) and Hepatitis C Virus (HCV) Antibody with reflex to Quantitative Real-time PCR (091712). Performed By: #### H CV ####[facility] [address] [place], [place] [address]Ct. Devin Suresh HIV 1 AND 2 WITH REFLEXon HIV Screen 4th Generation wRfx Non-Reactive Normal Non Reactive [facility] Comment on above: Result Comment: HIV NegativeHIV-1/HIV-2 antibodies and HIV-1 p24 antigen were NOT detected.There is no laboratory evidence of HIV infection. Performed By: #### H IV12 ####[facility] [address] [place], [place] [address]Sn. Devin Suresh RPR QUANTon 12-05-2021 Rapid Plasma Reagin, Quant Non-Reactive Normal NonRea<1:1 [facility] Comment on above: Result Comment: Plea se Note: This test does not meet current guidelines forscreening and diagnosis of syphilis. This test is intended forfollowing treatment response in patients being treated forsyphilis infection. To screen for syphilis infection, a reflexcascade that includes both RPR and a treponema-specific assayshould be utilized, such as Treponema pallidum (Syphilis)Screening [place] (494864) or Rapid Plasma Reagin (RPR) TestWith Reflex to Quantitative RPR and Confirmatory Treponemapallidum Antibodies (363632). Performed By: #### R PRQ ####[facility] [address] [place] [address]Dr. Devin Suresh CBC AUTO DIFFon 12-04-2021 BASO # 0.1 103/ul Normal 0.0-0.1 [facility] Comment on above: Performed By: #### C BC ####[facility] [address] [place], [place] [address]Dr. Devin Suresh Basophils/100 WBC (Bld) 0.9 % Normal 0.2-2.0 [facility] Comment on above: Performed By: #### C BC ####[facility] [address] [place], [place] [address]Dr. Devin Suresh EO # 0.2 103/ul Normal 0.0-0.7 [facility] Comment on above: Performed By: #### C BC ####[facility] [address] [place], [place] [address]Dr. Devin Suresh Eosinophils/100 WBC (Bld) 2.8 % Normal 0.9-7.0 [facility] Comment on above: Performed By: #### C BC ####[facility] [address] [place], [place] [address]Dr. Devin Suresh Erythrocyte distribution width (RBC) [Ratio] 12.0 % Normal 11.0-15.0 [facility] Comment on above: Performed By: #### C BC ####[facility] [address] [place], [place] [address]Dr. Devin Suresh Hematocrit (Bld) [Volume fraction] 34.6 % Critically low 36.0-48.0 [facility] Comment on above: Performed By: #### C BC ####[facility] [address] [place], [place] [address]Dr. Devin Suresh Hemoglobin (Bld) [Mass/Vol] 11.7 g/dL Critically low 12.0-16.0 [facility] Comment on above: Performed By: #### C BC ####[facility] [address] [place] [id number]. Devin Suresh IG # 0.04 10e3/ul Critically high 0.00-0.03 [facility] [facility] Comment on above: Performed By: #### C BC ####[facility] [address] [place] [id number]. Devin Suresh IG % 0.6 % Critically high 0.0-0.5 [facility] Comment on above: Performed By: #### C BC ####[facility] [address] [place] [address]Dr. Devin Suresh LYMPH # 2.0 103/ul Normal 1.2-3.8 [facility] Comment on above: Performed By: #### C BC ####[facility] [address] [place] [address]Dr. Devin Suresh Lymphocytes/100 WBC (Bld) 31.2 % Normal 20.5-60.0 [facility] Comment on above: Performed By: #### C BC ####[facility] [address] [place] [address]Dr. Devin Suresh MANUAL DIFF REQ NO Normal [facility] Comment on above: Performed By: #### C BC ####[facility] [address] [place] [address]Dr. Devin Suresh MCH (RBC) [Entitic mass] 30.8 pg Normal 26.7-34.0 [facility] Comment on above: Performed By: #### C BC ####[facility] [address] [place] [address]Dr. Devin Suresh MCHC (RBC) [Mass/Vol] 33.8 g/dL Normal 29.9-35.2 [facility] Comment on above: Performed By: #### C BC ####[facility] [address]fs[address] [place] [address]Dr. Devin Suresh MCV (RBC) [Entitic vol] 91.1 fL Normal 81.0-99.0 [facility] Comment on above: Performed By: #### C BC ####[facility] [address] [place] [phone]. Devin Suresh MONO # 0.4 103/ul Normal 0.3-0.8 [facility] Comment on above: Performed By: #### C BC ####[facility] X[address]zbexree[address] [place] [phone]. Devin Suresh Monocytes/100 WBC (Bld) 6.6 % Normal 1.7-12.0 [facility] Comment on above: Performed By: #### C BC ####[facility] [address]bi[address] [place] [phone]. Devin Suresh NEUT # 3.7 103/ul Normal 1.4-6.5 [facility] Comment on above: Performed By: #### C BC ####[facility] [address]fmqj[address] [place] [phone]. Devin Suresh Neutrophils/100 WBC (Bld) 57.9 % Normal 43.0-75.0 [facility] Comment on above: Performed By: #### C BC ####[facility] [address]xc[address] [place] [phone]. Devin Suresh Platelet mean volume (Bld) [Entitic vol] 9.0 fL Critically low 9.5-13.5 [facility] Comment on above: Performed By: #### C BC ####[facility] [address] [place] [phone]. Devin Suresh PLT 272 103/ul Normal 150-450 [facility] Comment on above: Performed By: #### C BC ####[facility] [address]omq[address] [place] [phone]. Devin Suresh RBC 3.80 106/ul Critically low 4.20-5.40 [facility] Comment on above: Performed By: #### C BC ####[facility] [address]jicmd[address] [place] [phone]. Devin Suresh WBC 6.4 103/ul Normal 4.0-11.0 [facility] Comment on above: Performed By: #### C BC ####[facility] [address]fs[address]fc[address] [place] [address]Dr. Devin Kerwin HIV 1/2 RAPID (EXPOSURE ONLY )on 12-04-2021 HIV AB Negative Normal [facility] Comment on above: Performed By: #### R PDHIV ####[facility] [address]xwgv[address] [place] [address]Dr. Tishemily Kerwin HIV AG Negative Normal [facility] Comment on above: Performed By: #### R PDHIV ####[facility] [address] [place] [address]Dr. Devin Suresh INTERNAL CONTROLS Within Normal Limits Normal Wi thin Normal Limits [facility] Comment on above: Performed By: #### R PDHIV ####[facility] [address] [place] [address]Dr. Devin Suresh RAPID HIV INFO SEE BELOW Normal [facility] Comment on above: Result Comment: This test is used for the initial screening of the exposure source. Confirmation of all results will be obtained through reference lab testing. Performed By: #### R PDHIV ####[facility] [address]nt[address] [place] [address]Dr. Devin Suresh PROF 14(COMP METB)on 022 Albumin [Mass/Vol] 2.7 g/dL Critically low 3.4-5.0 [facility] Comment on above: Performed By: #### C MP ####[facility] [address]re[address] [place] [address]Dr. Devin Suresh Albumin/Globulin [Mass ratio] 0.9 {ratio} Normal [facility] Comment on above: Performed By: #### C MP ####[facility] [address] [place] [address]Dr. Devin Suresh ALP [Catalytic activity/Vol] 98 U/L Normal 46-116 [facility] Comment on above: Performed By: #### C MP ####[facility] [address]aw[address] [place] [address]Dr. Devin Suresh ALT [Catalytic activity/Vol] 17 U/L Normal 14-59 [facility] Comment on above: Performed By: #### C MP ####[facility] [address] [place] [address]Dr. Devin Suresh Anion gap [Moles/Vol] 12.0 mmol/L Normal [facility] Comment on above: Performed By: #### C MP ####[facility] Ex[address] [place], [place] [address]Dr. Devin Suresh AST [Catalytic activity/Vol] 6 U/L Critically low 15-37 [facility] Comment on above: Performed By: #### C MP ####[facility] [address]ktl[address] [place], [place] [address]Dr. Devin Suresh Bilirubin [Mass/Vol] 0.3 mg/dL Normal 0.2-1.0 [facility] Comment on above: Performed By: #### C MP ####[facility] [address] [place], [place] [address]Dr. Devin Suresh Calcium [Mass/Vol] 8.1 mg/dL Critically low 8.5-10.1 [facility] Comment on above: Performed By: #### C MP ####[facility] Jqcgpm[address] [place], [place] [address]Dr. Devin Suresh Chloride [Moles/Vol] 108 mmol/L Critically high 98-107 [facility] Comment on above: Performed By: #### C MP ####[facility] Eatjdfvdum[address] [place], [place] [address]Dr. Tishemily Suresh CO2 [Moles/Vol] 25.4 mmol/L Normal 21.0-32.0 [facility] Comment on above: Performed By: #### C MP ####[facility] [address] [place], [place] [address]Dr. Devin Suresh Creatinine [Mass/Vol] 0.80 mg/dL Normal 0.55-1.02 [facility] Comment on above: Performed By: #### C MP ####[facility] [address] [place], [place] [address]Dr. Devin Suresh EGFR-AF [place] >60 Normal >=60 [facility] Comment on above: Performed By: #### C MP ####[facility] T[address]ow[address]ixn[address] [place], [place] [address]Dr. Devin Suresh EGFR-NON AF [place] >60 Normal >=60 [facility] Comment on above: Performed By: #### C MP ####[facility] [address] [place], [place] [address]Dr. Devin Suresh Globulin (S) [Mass/Vol] 3.0 g/dL Normal [facility] Comment on above: Performed By: #### C MP ####[facility] X[address]igc[address] [place], [place] [address]Dr. Devin Suresh Glucose [Mass/Vol] 153 mg/dL Critically high 74-106 T [facility] Comment on above: Performed By: #### C MP ####[facility] [address] [place], [place] [address]Dr. Devin Suresh Potassium [Moles/Vol] 3.4 mmol/L Critically low 3.5-5.1 [facility] Comment on above: Performed By: #### C MP ####[facility] Wuixxpueve[address] [place], [place] [address]Dr. Devin uSresh Protein [Mass/Vol] 5.7 g/dL Critically low 6.4-8.2 Th [place] Comment on above: Performed By: #### C MP ####[facility] [address]arxvh[address]qe[address] [place], [place] [address]Dr. Devin Suresh Sodium [Moles/Vol] 142 mmol/L Normal 136-145 [facility] Comment on above: Performed By: #### C MP ####[facility] [address] [place], [place] [address]Dr. Devin Suresh Urea nitrogen [Mass/Vol] 16.0 mg/dL Normal 7.0-18.0 [facility] Comment on above: Performed By: #### C MP ####[facility] Ah[address]vitwy[address] [place], [place] [address]Dr. Devin Suresh Urea nitrogen/Creatinine [Mass ratio] 20.0 mg/mg Normal [facility] Comment on above: Performed By: #### C MP ####[facility] [address] [place], [place] [address]Dr. Devin Suresh XR SACRUM_COCCYXon XR SACRUM_COCCYX Normal [facility] CHEMISTRYOrdered By: Lab ROP User on 11-06-2021 Glucose [Mass/Vol] 123 mg/dL High 55 - 99 mg/dL [facility] POC Subsection Comment on above: Result Comment: Peter yeh RN/ POC Device SN [id number] Invalid Interpretation Code [facility] POC Subsection POC User ID [id number] Invalid Interpretation Code [facility] POC Subsection POC Username LATONYA LORENZO Invalid Interpretation Code [facility] POC Subsection Glucose [Mass/Vol] 94 mg/dL Normal 55 - 99 mg/dL [facility] POC Subsection Comment on above: Result Comment: Peter rao RN/MD POC Device SN [id number] Invalid Interpretation Code [facility] POC Subsection POC User ID [id number] Invalid Interpretation Code [facility] POC Subsection POC Username LATONYA LORENZO Invalid Interpretation Code [facility] POC Subsection CHEMISTRYOrdered By: Lab ROP User on 11-05-2021 Glucose [Mass/Vol] 130 mg/dL High 55 - 99 mg/dL [facility] POC Subsection Comment on above: Result Comment: Prema piper Meter POC Device SN [id number] Invalid Interpretation Code [facility] POC Subsection POC User ID [id number] Invalid Interpretation Code [facility] POC Subsection POC Username WALE KERN Invalid Interpretation Code [facility] POC Subsection CHEMISTRYOrdered By: SYSTEM SYSTEM on 11-05-2021 HCG.beta subunit Qn 9 m[IU]/mL High 1 - 3 mIU/mL [facility] Remisol CEFEPIME:SUSC:PT:ISOLATE:ORD QN:MICon 11-04-2021 Cefepime DOMENIC [Susc] 10,000 cfu/ml Proteu s mirabilis 50,000 cfu/ml Staphylococcus species [facility] CHEMISTRYOrdered By: SYSTEM SYSTEM on 11-04-2021 Albumin [Mass/Vol] 3.5 g/dL Normal 3.3 - 5.0 gm/dL [facility] Remisol Albumin/Globulin [Mass ratio] 1.0 {ratio} Low 1.1 - 2.2 [facility] Remisol ALP [Catalytic activity/Vol] 95 [iU]/d Normal 21 - 98 Int._Unit/L [facility] Remisol ALT No additional P-5'-P [Catalytic activity/Vol] 12 [iU]/d Normal 6 - 46 Int._Unit/L [facility] Remisol Anion gap [Moles/Vol] 13 mmol/L Normal 6 - 16 mEq/L [facility] Remisol AST [Catalytic activity/Vol] 14 [iU]/d Normal 5 - 43 Int._Unit/L [facility] Remisol Bilirubin [Mass/Vol] 0.7 mg/dL Normal 0.0 - 1 .1 mg/dL [facility] Remisol Bilirubin.direct [Mass/Vol] 0.1 mg/dL Normal 0.1 - 0.4 mg/dL [facility] Remisol Bilirubin.indirect [Mass or moles/Vol] 0.6 mg/dL Normal 0.1 - 0.9 mg/dL [facility] Remisol Calcium [Mass/Vol] 9.4 mg/dL Normal 8.9 - 11. 1 mg/dL [facility] Chloride [Moles/Vol] 101 mmol/L Normal 101 - 1 11 mmol/L [facility] CO2 [Moles/Vol] 25 mmol/L Normal 21 - 31 mmol/L [facility] Remisol Creatinine [Mass/Vol] 1.0 mg/dL Normal 0.5 - 1.3 mg/dL [facility] Remisol GFR/1.73 sq M.predicted among blacks MDRD (S/P/Bld) [Vol rate/Area] mL/min/1.73 m2 Normal >=59mL/min/ 1.73 m2 [facility] Chem S GFR/1.73 sq M.predicted among non-blacks MDRD (S/P/Bld) [Vol rate/Area] 60 mL/min/1.73 m2 Normal >=59mL/min/ 1.73 m2 [facility] Chem S Globulin (S) [Mass/Vol] 3.5 g/dL Normal 1.4 - 4.0 gm/dL [facility] Remisol Glucose [Mass/Vol] 260 mg/dL High 55 - 199 mg/dL [facility] Remisol HCG.beta subunit Qn 10 m[IU]/mL High 1 - 3 mIU/mL [facility] Remisol Potassium [Moles/Vol] 4.0 mmol/L Normal 3.5 - 5.3 mmol/L [facility] Remisol Protein [Mass/Vol] 7.0 g/dL Normal 6.0 - 7.8 gm/dL [facility] Remisol Sodium [Moles/Vol] 135 mmol/L Normal 135 - 145 mmol/L [facility] Remisol Urea nitrogen [Mass/Vol] 23 mg/dL High 5 - 21 mg/dL [facility] Remisol Urea nitrogen/Creatinine [Mass ratio] 23 mg/mg High 10 - 20 [facility] Remisol Cefepime DOMENIC [Susc]on 2021 Proteus mirabilis Proteus mirabilis [facility] HEMATOLOGYOrdered By: SYSTEM SYSTEM on 11-04-2021 Basophils/100 WBC (Bld) 1.1 % Normal 0.0 - 2.0 % [facility] HemeAutoSS Basophils/Leukocytes Auto (Bld) [Pure # fraction] 0.1 E9/L Normal 0.0 - 0.2 E9/L [facility] HemeAutoSS Eosinophils/100 WBC (Bld) 2.7 % Normal 0.0 - 8.0 % [facility] HemeAutoSS Eosinophils/Leukocyte s Auto (Bld) [Pure # fraction] 0.2 E9/L Normal 0.0 - 0.5 E9/L [facility] HemeAutoSS Lymphocytes/100 WBC (Bld) 28.6 % Normal 14.0 - 50.0 % [facility] HemeAutoSS Lymphocytes/Leukocyte s Auto (Bld) [Pure # fraction] 2.2 E9/L Normal 1.0 - 4.0 E9/L [facility] HemeAutoSS Monocytes/100 WBC (Bld) 6.2 % Normal 4.0 - 14.0 % [facility] HemeAutoSS Monocytes/Leukocytes Auto (Bld) [Pure # fraction] 0.5 E9/L Normal 0.2 - 1.0 E9/L [facility] HemeAutoSS Neutrophils/100 WBC (Bld) 61.4 % Normal 36.0 - 75.0 % [facility] HemeAutoSS Neutrophils/Leukocyte s Auto (Bld) [Pure # fraction] 4.6 E9/L Normal 2.0 - 7.5 E9/L [facility] HemeAutoSS HEMATOLOGYOrdered By: Chapis Cuellar on 11-04-2021 Erythrocyte distribution width (RBC) [Ratio] 12.4 % Normal 10.9 - 14.2 % [facility] HemeAutoSS Hematocrit (Bld) [Volume fraction] 37.7 % Normal 34.0 - 46.0 % [facility] HemeAutoSS Hemoglobin (Bld) [Mass/Vol] 13.2 g/dL Normal 12.0 - 16.0 gm/dL [facility] HemeAutoSS MCH (RBC) [Entitic mass] 31.3 pg Normal 27.0 - 34.0 pg [facility] HemeAutoSS MCHC (RBC) [Mass/Vol] 35.1 g/dL Normal 31.4 - 36.0 gm/dL [facility] HemeAutoSS MCV (RBC) [Entitic vol] 89.1 fL Normal 80.0 - 100.0 fL [facility] HemeAutoSS Platelet mean volume (Bld) [Entitic vol] 6.9 fL Normal 6.4 - 10.8 fL [facility] HemeAutoSS Platelets (Bld) [#/Vol] 373.0 E9/L Normal 150.0 - 500.0 E9/L [facility] HemeAutoSS RBC (Bld) [#/Vol] 4.2 E12/L Low 4.3 - 5.9 E12/L [facility] HemeAutoSS WBC corrected for nucl RBC Auto (Bld) [#/Vol] 7.5 E9/L Normal 4.0 - 11.0 E9/L [facility] HemeAutoSS URINALYSISOrdered By: Abida Villagomez on 11-04-2021 Bacteria LM Ql (Urine sed) 2+ /HPF Invalid Interpretation Code Trace/HPF [facility] UA Auto SS Bilirubin Ql (U) Negative (11/04/21 12:55 PM) Normal Negative [facility] UA Auto SS Clarity (U) Slightly Cloudy *ABN* (11/04/21 12:55 PM) Invalid Interpretation Code Clear [facility] UA Auto SS Color (U) Yellow (11/04/21 12:55 PM) Normal Yellow [facility] UA Auto SS Crystals LM Ql (Urine sed) Present (11/04/21 12:55 PM) Normal [facility] UA Auto SS Epithelial cells.squamous LM.HPF (Urine sed) [#/Area] 5-8 /HPF Normal 0-2/HPF [facility] UA Aut o SS Glucose Test strip (U) [Mass/Vol] 3+ *ABN* (11/04/21 12:55 PM) Invalid Interpretation Code Negative [facility] UA Auto SS Hemoglobin Ql (U) Trace *ABN* (11/04/21 12:55 PM) Invalid Interpretation Code Negative [facility] UA Auto SS Ketones (U) [Mass/Vol] Negative (11/04/21 12:55 PM) Normal Negative [facility] UA Auto SS [place].plasma/Lith[place] m.RBC (Bld) [Mass ratio] 0-3 /HPF Normal 0-3/HPF [facility] UA Auto SS Mucus Ql (Urine sed) Trace (11/04/21 12:55 PM) Normal [facility] UA Auto SS Nitrite Ql (U) Positive *ABN* (11/04/21 12:55 PM) Invalid Interpretation Code Negative [facility] UA Auto SS pH (U) 6.0 *NA* (11/04/21 12:55 PM) Invalid Interpretation Code 5.0 - 9.0 [facility] UA Auto SS Protein (U) [Mass/Vol] Negative (11/04/21 12:55 PM) Normal Negative [facility] UA Auto SS Specific gravity (U) [Rel density] >=1.030 *NA* (11/04/21 12:55 PM) Invalid Interpretation Code 1.005 - 1.030 [facility] UA Auto SS UA Spec Desc Clean Catch (11/04/21 12:55 PM) Normal [facility] UA Auto SS Urobilinogen Qn (U) [id number] {Sheyla'U}/dL Normal 0.0 - 1.0 EU/dL [facility] UA Auto SS WBC Auto Ql (U) Negative (11/04/21 12:55 PM) Normal Negative [facility] UA Auto SS WBC casts LM.LPF (Urine sed) [#/Area] 0-3 (11/04/21 12:55 PM) Normal [facility] UA Auto SS WBC LM.HPF (Urine sed) [#/Area] 0-5 /HPF Normal 0-5/HPF [facility] UA Auto SS CHEMISTRYOrdered By: SYSTEM SYSTEM on 10-09-2021 Anion gap [Moles/Vol] 14 mmol/L Normal 6 - 16 mEq/L [facility] Remisol Calcium [Mass/Vol] 8.5 mg/dL Low 8.9 - 11. 1 mg/dL [facility] Remisol Chloride [Moles/Vol] 103 mmol/L Normal 101 - 1 11 mmol/L [facility] Remisol CO2 [Moles/Vol] 22 mmol/L Normal 21 - 31 mmol/L [facility] Remisol Creatinine [Mass/Vol] 1.0 mg/dL Normal 0.5 - 1.3 mg/dL [facility] Remisol GFR/1.73 sq M.predicted among blacks MDRD (S/P/Bld) [Vol rate/Area] mL/min/1.73 m2 Normal >=59mL/min/ 1.73 m2 [facility] S GFR/1.73 sq M.predicted among non-blacks MDRD (S/P/Bld) [Vol rate/Area] 60 mL/min/1.73 m2 Normal >=59mL/min/ 1.73 m2 [facility] Chem S Glucose [Mass/Vol] 158 mg/dL Normal 55 - 199 mg/dL [facility] Remisol Potassium [Moles/Vol] 3.7 mmol/L Normal 3.5 - 5.3 mmol/L [facility] Remisol Sodium [Moles/Vol] 135 mmol/L Normal 135 - 145 mmol/L [facility] Remisol Urea nitrogen [Mass/Vol] 13 mg/dL Normal 5 - 21 mg/dL [facility] Remisol Urea nitrogen/Creatinine [Mass ratio] 13 mg/mg Normal 10 - 20 [facility] Remisol HEMATOLOGYOrdered By: SYSTEM SYSTEM on 10-09-2021 Basophils/100 WBC (Bld) 0.6 % Normal 0.0 - 2.0 % [facility] HemeAutoSS Basophils/Leukocytes Auto (Bld) [Pure # fraction] 0.0 E9/L Normal 0.0 - 0.2 E9/L [facility] HemeAutoSS Eosinophils/100 WBC (Bld) 0.4 % Normal 0.0 - 8.0 % [facility] HemeAutoSS Eosinophils/Leukocyte s Auto (Bld) [Pure # fraction] 0.0 E9/L Normal 0.0 - 0.5 E9/L [facility] HemeAutoSS Lymphocytes/100 WBC (Bld) 15.5 % Normal 14.0 - 50.0 % [facility] HemeAutoSS Lymphocytes/Leukocyte s Auto (Bld) [Pure # fraction] 1.0 E9/L Normal 1.0 - 4.0 E9/L [facility] HemeAutoSS Monocytes/100 WBC (Bld) 8.5 % Normal 4.0 - 14.0 % [facility] HemeAutoSS Monocytes/Leukocytes Auto (Bld) [Pure # fraction] 0.5 E9/L Normal 0.2 - 1.0 E9/L [facility]eAutoSS Neutrophils/100 WBC (Bld) 75.0 % Normal 36.0 - 75.0 % [facility] HemeAutoSS Neutrophils/Leukocyte s Auto (Bld) [Pure # fraction] 4.8 E9/L Normal 2.0 - 7.5 E9/L [facility] HemeAutoSS HEMATOLOGYOrdered By: Laura turner on 10-09-2021 Erythrocyte distribution width (RBC) [Ratio] 12.9 % Normal 10.9 - 14.2 % [facility] HemeAutoSS Hematocrit (Bld) [Volume fraction] 36.9 % Normal 34.0 - 46.0 % [facility] HemeAutoSS Hemoglobin (Bld) [Mass/Vol] 13.1 g/dL Normal 12.0 - 16.0 gm/dL [facility]eAutoSS MCH (RBC) [Entitic mass] 31.9 pg Normal 27.0 - 34.0 pg [facility] HemeAutoSS MCHC (RBC) [Mass/Vol] 35.5 g/dL Normal 31.4 - 36.0 gm/dL [facility] HemeAutoSS MCV (RBC) [Entitic vol] 89.6 fL Normal 80.0 - 100.0 fL [facility] HemeAutoSS Platelet mean volume (Bld) [Entitic vol] 7.0 fL Normal 6.4 - 10.8 fL [facility] HemeAutoSS Platelets (Bld) [#/Vol] 284.0 E9/L Normal 150.0 - 500.0 E9/L [facility] HemeAutoSS RBC (Bld) [#/Vol] 4.1 E12/L Low 4.3 - 5.9 E12/L [facility] HemeAutoSS WBC corrected for nucl RBC Auto (Bld) [#/Vol] 6.4 E9/L Normal 4.0 - 11.0 E9/L [facility] HemeAutoSS MICRO OTHER TESTSOrdered By: Shannen Sosa on 10-09-2021 Influenzae A Ag Negative (10/09/21 4:48 PM) Normal Negative [facility] Man Sero Influenzae B Ag Negative (10/09/21 4:48 PM) Normal Negative [facility] Man Sero Rapid COV Int NEG Ctl Pass (10/09/21 4:48 PM) Normal [facility] Man Sero Rapid COV Int POS Ctl Pass (10/09/21 4:48 PM) Normal [facility] Man Sero SARS-CoV+SARS-CoV-2 (COVID-19) Ag IA.rapid Ql (Resp) Not Detected (10/09/21 4:48 PM) Normal Not Detected [facility] Man Sero SEROLOGYOrdered By: Shannen evans on 10-09-2021 Beta hCG Ql Positive (10/09/21 4:48 PM) Normal [facility] Man Sero CHEMISTRYOrdered By: SYSTEM SYSTEM on 10-03-2021 Albumin [Mass/Vol] 3.8 g/dL Normal 3.3 - 5.0 gm/dL [facility] Remisol Albumin/Globulin [Mass ratio] 1.2 {ratio} Normal 1.1 - 2.2 [facility] Remisol ALP [Catalytic activity/Vol] 89 [iU]/d Normal 21 - 98 Int._Unit/L [facility] Remisol ALT No additional P-5'-P [Catalytic activity/Vol] 13 [iU]/d Normal 6 - 46 Int._Unit/L [facility] Remisol Anion gap [Moles/Vol] 13 mmol/L Normal 6 - 16 mEq/L [facility] Remisol AST [Catalytic activity/Vol] 15 [iU]/d Normal 5 - 43 Int._Unit/L [facility] Remisol Bilirubin [Mass/Vol] 0.7 mg/dL Normal 0.0 - 1 .1 mg/dL [facility] Remisol Calcium [Mass/Vol] 9.0 mg/dL Normal 8.9 - 11. 1 mg/dL [facility] Remisol Chloride [Moles/Vol] 105 mmol/L Normal 101 - 1 11 mmol/L [facility] Remisol Cholesterol [Mass/Vol] 188 mg/dL Normal 120 - 200 mg/dL [facility] Remisol Cholesterol in HDL [Mass/Vol] 48 mg/dL Invalid Interpretation Code [facility] Remisol Cholesterol in LDL [Mass/Vol] 119 mg/dL Normal <=129mg/dL [facility] Remisol Cholesterol in VLDL [Mass/Vol] 22 mg/dL Normal 7 - 40 mg/dL [facility] Remisol CO2 [Moles/Vol] 23 mmol/L Normal 21 - 31 mmol/L [facility] Remisol Creatinine [Mass/Vol] 1.0 mg/dL Normal 0.5 - 1.3 mg/dL [facility] Remisol GFR/1.73 sq M.predicted among blacks MDRD (S/P/Bld) [Vol rate/Area] mL/min/1.73 m2 Normal >=59mL/min/ 1.73 m2 [facility] Chem S GFR/1.73 sq M.predicted among non-blacks MDRD (S/P/Bld) [Vol rate/Area] 60 mL/min/1.73 m2 Normal >=59mL/min/ 1.73 m2 [facility] Chem S Globulin (S) [Mass/Vol] 3.2 g/dL Normal 1.4 - 4.0 gm/dL [facility] Remisol Glucose [Mass/Vol] 71 mg/dL Normal 55 - 199 mg/dL [facility] Remisol Potassium [Moles/Vol] 2.9 mmol/L Low 3.5 - 5.3 mmol/L [facility] Remisol Protein [Mass/Vol] 7.0 g/dL Normal 6.0 - 7.8 gm/dL [facility] Remisol Sodium [Moles/Vol] 138 mmol/L Normal 135 - 145 mmol/L [facility] Remisol Triglyceride [Mass/Vol] 108 mg/dL Normal <=149mg/dL [facility] Remisol TSH Qn 5.16 m[IU]/L Normal 0.34 - 5.60 mcIU/mL [facility] Remisol Urea nitrogen [Mass/Vol] 19 mg/dL Normal 5 - 21 mg/dL [facility] Remisol Urea nitrogen/Creatinine [Mass ratio] 19 mg/mg Normal 10 - 20 [facility] Remisol CHEMISTRYOrdered By: Don Villagomez on 10-03-2021 HbA1c (Bld) [Mass fraction] 9.1 % High <=5.9% [facility] ChemAutoSS CHEMISTRYOrdered By: Breanna Hammond on 10-03-2021 Albumin DL <= 20 mg/L (U) [Mass/Vol] 32.4 microgram/mL High 0.0 - 19.0 mcg/mL [facility] Remisol HEMATOLOGYOrdered By: SYSTEM SYSTEM on 10-03-2021 Basophils/100 WBC (Bld) 0.9 % Normal 0.0 - 2.0 % [facility] HemeAutoSS Basophils/Leukocytes Auto (Bld) [Pure # fraction] 0.1 E9/L Normal 0.0 - 0.2 E9/L [facility]eAutoSS Eosinophils/100 WBC (Bld) 1.5 % Normal 0.0 - 8.0 % [facility]eAutoSS Eosinophils/Leukocyte s Auto (Bld) [Pure # fraction] 0.1 E9/L Normal 0.0 - 0.5 E9/L [facility]eAutoSS Lymphocytes/100 WBC (Bld) 28.5 % Normal 14.0 - 50.0 % [facility] HemeAutoSS Lymphocytes/Leukocyte s Auto (Bld) [Pure # fraction] 2.5 E9/L Normal 1.0 - 4.0 E9/L [facility] HemeAutoSS Monocytes/100 WBC (Bld) 5.8 % Normal 4.0 - 14.0 % [facility] HemeAutoSS Monocytes/Leukocytes Auto (Bld) [Pure # fraction] 0.5 E9/L Normal 0.2 - 1.0 E9/L [facility]eAutoSS Neutrophils/100 WBC (Bld) 63.3 % Normal 36.0 - 75.0 % [facility] HemeAutoSS Neutrophils/Leukocyte s Auto (Bld) [Pure # fraction] 5.6 E9/L Normal 2.0 - 7.5 E9/L [facility]eAutoSS HEMATOLOGYOrdered By: Chapis Cuellar on 10-03-2021 Erythrocyte distribution width (RBC) [Ratio] 13.1 % Normal 10.9 - 14.2 % [facility] HemeAutoSS Hematocrit (Bld) [Volume fraction] 40.6 % Normal 34.0 - 46.0 % [facility] HemeAutoSS Hemoglobin (Bld) [Mass/Vol] 13.7 g/dL Normal 12.0 - 16.0 gm/dL [facility]eAutoSS MCH (RBC) [Entitic mass] 31.2 pg Normal 27.0 - 34.0 pg [facility]eAutoSS MCHC (RBC) [Mass/Vol] 33.8 g/dL Normal 31.4 - 36.0 gm/dL [facility]eAutoSS MCV (RBC) [Entitic vol] 92.4 fL Normal 80.0 - 100.0 fL [facility]eAutoSS Platelet mean volume (Bld) [Entitic vol] 7.9 fL Normal 6.4 - 10.8 fL [facility] HemeAutoSS Platelets (Bld) [#/Vol] 298.0 E9/L Normal 150.0 - 500.0 E9/L [facility]eAutoSS Comment on above: Result Comment: Plat elet count verified using smear estimate Slide reviewed by FIR. RBC (Bld) [#/Vol] 4.4 E12/L Normal 4.3 - 5.9 E12/L [facility] [place] [facility] WBC corrected for nucl RBC Auto (Bld) [#/Vol] 8.9 E9/L Normal 4.0 - 11.0 E9/L [facility] [place] [facility] CHEMISTRYOrdered By: Guesty SYSTEM on 09-27-2021 Anion gap [Moles/Vol] 17 mmol/L High 6 - 16 mEq/L [facility] Calcium [Mass/Vol] 9.0 mg/dL Normal 8.9 - 11. 1 mg/dL [facility] Chloride [Moles/Vol] 104 mmol/L Normal 101 - 1 11 mmol/L [facility] CO2 [Moles/Vol] 25 mmol/L Normal 21 - 31 mmol/L [facility] Creatinine [Mass/Vol] 1.0 mg/dL Normal 0.5 - 1.3 mg/dL [facility] [place] Remisol GFR/1.73 sq M.predicted among blacks MDRD (S/P/Bld) [Vol rate/Area] mL/min/1.73 m2 Normal >=59mL/min/ 1.73 m2 [facility] [place] Chem S GFR/1.73 sq M.predicted among non-blacks MDRD (S/P/Bld) [Vol rate/Area] 60 mL/min/1.73 m2 Normal >=59mL/min/ 1.73 m2 [facility] [place] Chem S Glucose [Mass/Vol] 228 mg/dL High 55 - 199 mg/dL [facility] [place] Remisol Potassium [Moles/Vol] 3.5 mmol/L Normal 3.5 - 5.3 mmol/L [facility] [place] Remisol Sodium [Moles/Vol] 142 mmol/L Normal 135 - 145 mmol/L [facility] [place] Remisol Urea nitrogen [Mass/Vol] 21 mg/dL Normal 5 - 21 mg/dL [facility] [place] Remisol Urea nitrogen/Creatinine [Mass ratio] 21 mg/mg High 10 - 20 FT Remisol HEMATOLOGYOrdered By: Chapsi Cuellar on 09-27-2021 Erythrocyte distribution width (RBC) [Ratio] 13.2 % Normal 10.9 - 14.2 % [facility] [place] HemeAutoSS Hematocrit (Bld) [Volume fraction] 38.8 % Normal 34.0 - 46.0 % [facility] [place] HemeAutoSS Hemoglobin (Bld) [Mass/Vol] 13.6 g/dL Normal 12.0 - 16.0 gm/dL [facility] [place] [facility]eAutoSS MCH (RBC) [Entitic mass] 31.5 pg Normal 27.0 - 34.0 pg FT [facility]eAuto[employer] MCHC (RBC) [Mass/Vol] 35.0 g/dL Normal 31.4 - 36.0 gm/dL FT [employer]eAuto[employer] MCV (RBC) [Entitic vol] 90.2 fL Normal 80.0 - 100.0 fL FT HemeAutoSS Platelet mean volume (Bld) [Entitic vol] 7.5 fL Normal 6.4 - 10.8 fL [facility] [place] HemeAutoSS Platelets (Bld) [#/Vol] 358.0 E9/L Normal 150.0 - 500.0 E9/L FT HemeAutoSS RBC (Bld) [#/Vol] 4.3 E12/L Normal 4.3 - 5.9 E12/L [facility] [place] HemeAutoSS WBC corrected for nucl RBC Auto (Bld) [#/Vol] 7.5 E9/L Normal 4.0 - 11.0 E9/L [facility] [place] HemeAutoSS COVID Quick Testingon 2021 Result Positive [facility] Other Basic Metabolic Panelon 05-25 Anion gap [Moles/Vol] 9 mmol/L Low 10 - 2 0 mmol/L [facility] Calcium [Mass/Vol] 7.8 mg/dL Low 8.4 - 10. 2 mg/dL [facility] Chloride [Moles/Vol] 119 mmol/L High 98 - 10 8 mmol/L [facility] Creatinine [Mass/Vol] 0.72 mg/dL 0.40 - 1.10 [facility] GFR/1.73 sq M predicted among non-blacks MDRD (S/P/Bld) [Vol rate/Area] The eGFR should be used for monitoring renal function only and not for medication dosing. [facility] GFR/1.73 sq M.predicted CKD-EPI (S/P/Bld) [Vol rate/Area] 103 >=60 mL/min/1.73 m2 [facility] Glucose [Mass/Vol] 70 mg/dL 65 - 99 mg/dL [facility] HCO3 [Moles/Vol] 22 mmol/L 21 - 32 mmol/L [facility] Interpretation and review of laboratory results Abnormal [facility] Potassium [Moles/Vol] 3.5 mmol/L 3.5 - 5.1 mmol/L [facility] Sodium [Moles/Vol] 146 mmol/L High 135 - 145 mmol/L [facility] Urea nitrogen [Mass/Vol] 8 mg/dL 8 - 25 mg/dL [facility] Urea nitrogen/Creatinine [Mass ratio] 11.1 mg/mg [facility] CBCon 06-05-2020 Erythrocyte distribution width (RBC) [Entitic vol] 12.2 % 11.6 - 14.8 % [facility] Hematocrit (Bld) [Volume fraction] 35.1 % Low 36 - 46 % [facility] Hemoglobin (Bld) [Mass/Vol] 11.4 g/dL Low 12 - 16 g/dL [facility] Interpretation and review of laboratory results Abnormal [facility] MCH (RBC) [Entitic mass] 30.6 pg 26 - 34 pg [facility] MCHC (RBC) [Mass/Vol] 32.5 g/dL 31 - 3 7 g/dL [facility] MCV (RBC) [Entitic vol] 94.4 fL 80 - 100 fL [facility] Nucleated RBC (Bld) [#/Vol] 0.00 10*3/uL [facility] Nucleated RBC/100 WBC (Bld) [Ratio] 0.0 % [facility] Platelet mean volume (Bld) [Entitic vol] 9.4 fL 9.4 - 12.4 fL [facility] Platelets (Bld) [#/Vol] 191 10*3/uL [facility] RBC (Bld) [#/Vol] 3.72 10*6/uL Low [facility] WBC (Bld) [#/Vol] 5.46 10*3/uL [facility] Lactic Acid, Plasmaon 2020 Interpretation and review of laboratory results Normal [facility] Lactate [Moles/Vol] 1.9 mmol/L 0.6 - 2 mmol/L [facility] Magnesiumon 06-05-2020 Magnesium [Mass/Vol] 1.8 mg/dL 1.6 - 2 .4 mg/dL [facility] Otheron 06-05-2020 Interpretation and review of laboratory results Normal [facility] POC Glucoseon 06-05-2020 Glucose [Mass/Vol] 201 mg/dL High 65 - 99 mg/dL [facility] Interpretation and review of laboratory results Abnormal [facility] Glucose [Mass/Vol] 143 mg/dL High 65 - 99 mg/dL [facility] Interpretation and review of laboratory results Abnormal [facility] Glucose [Mass/Vol] 93 mg/dL 65 - 99 mg/dL [facility] TSHon 06-05-2020 Interpretation and review of laboratory results Normal [facility] TSH Qn 2.35 m[IU]/L [facility] Basic Metabolic Panelon 05-25 Anion gap [Moles/Vol] 11 mmol/L 10 - 2 0 mmol/L [facility] Calcium [Mass/Vol] 7.8 mg/dL Low 8.4 - 10. 2 mg/dL [facility] Chloride [Moles/Vol] 115 mmol/L High 98 - 10 8 mmol/L [facility] Creatinine [Mass/Vol] 0.90 mg/dL 0.40 - 1.10 [facility] GFR/1.73 sq M predicted among non-blacks MDRD (S/P/Bld) [Vol rate/Area] The eGFR should be used for monitoring renal function only and not for medication dosing. [facility] GFR/1.73 sq M.predicted CKD-EPI (S/P/Bld) [Vol rate/Area] 79 >=60 mL/min/1.73 m2 [facility] Glucose [Mass/Vol] 107 mg/dL High 65 - 99 mg/dL [facility] HCO3 [Moles/Vol] 22 mmol/L 21 - 32 mmol/L [facility] Interpretation and review of laboratory results Abnormal [facility] Potassium [Moles/Vol] 3.7 mmol/L 3.5 - 5.1 mmol/L [facility] Sodium [Moles/Vol] 144 mmol/L 135 - 145 mmol/L [facility] Urea nitrogen [Mass/Vol] 14 mg/dL 8 - 25 mg/dL [facility] Urea nitrogen/Creatinine [Mass ratio] 15.6 mg/mg [facility] CBC WITH AUTO DIFFERENTIALon 06-04-2020 Basophils (Bld) [#/Vol] 0.08 10*3/uL [facility] Basophils/100 WBC (Bld) 1.1 % [facility] Eosinophils (Bld) [#/Vol] 0.16 10*3/uL [facility] Eosinophils/100 WBC (Bld) 2.2 % [facility] Erythrocyte distribution width (RBC) [Entitic vol] 12.3 % 11.6 - 14.8 % [facility] Hematocrit (Bld) [Volume fraction] 36.0 % 36 - 46 % [facility] Hemoglobin (Bld) [Mass/Vol] 11.8 g/dL Low 12 - 16 g/dL [facility] Immature granulocytes (Bld) [#/Vol] 0.02 10*3/uL [facility] Immature granulocytes/100 WBC (Bld) 0.30 % [facility] Comment on above: The IG parameter is the percentage of metamyelocytes, myelocytes and promyelocytes. An immature granulocyte count (IG) of 1% or more suggests the possibility of infection, an IG count of 3% is very likely related to an infection. Interpretation and review of laboratory results Abnormal [facility] Lymphocytes (Bld) [#/Vol] 2.82 10*3/uL [facility] Lymphocytes/100 WBC (Bld) 39.6 % [facility] MCH (RBC) [Entitic mass] 31.1 pg 26 - 34 pg [facility] MCHC (RBC) [Mass/Vol] 32.8 g/dL 31 - 3 7 g/dL [facility] MCV (RBC) [Entitic vol] 95.0 fL 80 - 100 fL [facility] Monocytes (Bld) [#/Vol] 0.45 10*3/uL [facility] Monocytes/100 WBC (Bld) 6.3 % [facility] Neutrophils (Bld) [#/Vol] 3.59 10*3/uL [facility] Neutrophils/100 WBC (Bld) 50.5 % [facility] Nucleated RBC (Bld) [#/Vol] 0.00 10*3/uL [facility] Nucleated RBC/100 WBC (Bld) [Ratio] 0.0 % [facility] Platelet mean volume (Bld) [Entitic vol] 9.7 fL 9.4 - 12.4 fL [facility] Platelets (Bld) [#/Vol] 234 10*3/uL [facility] RBC (Bld) [#/Vol] 3.79 10*6/uL Low [facility] WBC (Bld) [#/Vol] 7.12 10*3/uL [facility] A1con 06-04-2020 Average glucose Estimated from glycated hemoglobin mass conc (Bld) 246 mg/dL High 68 - 114 mg/dL [facility] HbA1c (Bld) [Mass fraction] 10.2 % High 4 - 5.6 % [facility] Interpretation and review of laboratory results Abnormal [facility] Normal: 4.0% - 5.6% Increased risk for diabetes: 5.7% - 6.4% Diabetes: >= 6.5% Pediatrics: No established reference range Estimated average glucose: 68-114 mg/dL [facility] Magnesiumon 06-04-2020 Interpretation and review of laboratory results Normal [facility] Magnesium [Mass/Vol] 1.6 mg/dL 1.6 - 2 .4 mg/dL [facility] POC Glucoseon 06-04-2020 Glucose [Mass/Vol] 79 mg/dL 65 - 99 mg/dL [facility] Interpretation and review of laboratory results Normal [facility] Glucose [Mass/Vol] 108 mg/dL High 65 - 99 mg/dL [facility] Interpretation and review of laboratory results Abnormal [facility] Glucose [Mass/Vol] 134 mg/dL High 65 - 99 mg/dL [facility] Interpretation and review of laboratory results Abnormal [facility] Glucose [Mass/Vol] 118 mg/dL High 65 - 99 mg/dL [facility] Interpretation and review of laboratory results Abnormal [facility] Reflex Lactic Acid, Plasmaon 06-04-2020 Interpretation and review of laboratory results Abnormal [facility] Lactate [Moles/Vol] 2.1 mmol/L High 0.6 - 2 mmol/L [facility] CBC WITH AUTO DIFFERENTIALon 06-03-2020 Basophils (Bld) [#/Vol] 0.06 10*3/uL [facility] Basophils/100 WBC (Bld) 0.8 % [facility] Eosinophils (Bld) [#/Vol] 0.11 10*3/uL [facility] Eosinophils/100 WBC (Bld) 1.4 % [facility] Erythrocyte distribution width (RBC) [Entitic vol] 12.3 % 11.6 - 14.8 % [facility] Hematocrit (Bld) [Volume fraction] 38.8 % 36 - 46 % [facility] Hemoglobin (Bld) [Mass/Vol] 13.1 g/dL 12 - 16 g/dL [facility] Immature granulocytes (Bld) [#/Vol] 0.02 10*3/uL [facility] Immature granulocytes/100 WBC (Bld) 0.30 % [facility] Comment on above: The IG parameter is the percentage of metamyelocytes, myelocytes and promyelocytes. An immature granulocyte count (IG) of 1% or more suggests the possibility of infection, an IG count of 3% is very likely related to an infection. Lymphocytes (Bld) [#/Vol] 1.86 10*3/uL [facility] Lymphocytes/100 WBC (Bld) 24.1 % [facility] MCH (RBC) [Entitic mass] 30.8 pg 26 - 34 pg [facility] MCHC (RBC) [Mass/Vol] 33.8 g/dL 31 - 3 7 g/dL [facility] MCV (RBC) [Entitic vol] 91.1 fL 80 - 100 fL [facility] Monocytes (Bld) [#/Vol] 0.37 10*3/uL [facility] Monocytes/100 WBC (Bld) 4.8 % [facility] Neutrophils (Bld) [#/Vol] 5.29 10*3/uL [facility] Neutrophils/100 WBC (Bld) 68.6 % [facility] Nucleated RBC (Bld) [#/Vol] 0.00 10*3/uL [facility] Nucleated RBC/100 WBC (Bld) [Ratio] 0.0 % [facility] Platelet mean volume (Bld) [Entitic vol] 9.7 fL 9.4 - 12.4 fL [facility] Platelets (Bld) [#/Vol] 253 10*3/uL [facility] RBC (Bld) [#/Vol] 4.26 10*6/uL [facility] WBC (Bld) [#/Vol] 7.71 10*3/uL [facility] COVID-19, Molecularon 2020 Interpretation and review of laboratory results Normal [facility] SARS-CoV-2 Not Detected Not Detected [facility] Comment on above: This test was perfor med under the FDA's Emergency Use Authorization (EUA). Testing was performed using the [employer] ID NOW COVID-19 assay on the ID NOW platform. This test has not been approved for use in asymptomatic patients and its performance in this patient population has not been evaluated. Negative results do not rule out the presence of SARS-CoV-2/COVID-19. Fact sheets for the EUA can be found at the following links: For Healthcare Providers: https://www.fda.gov/media/361748/download For Patients: https://www.fda.gov/media/089488/download CRITICAL CAREon 06-03-2020 Joel Pickett 06/03/2020 4:35 PM Critical Care Performed by: Ko Hankins MD Authorized by: Ko Hankins MD Total critical care time: 60 minutes Critical care start time: 06/03/2020 2:35 PM Critical care end time: 06/03/2020 3:35 PM Critical care was necessary to treat or prevent imminent or life-threatening deterioration of the following conditions: sepsis, metabolic crisis and dehydration. Critical care was time spent personally by me on the following activities: blood draw for specimens, development of treatment plan with patient or surrogate, discussions with primary provider, examination of patient, obtaining history from patient or surrogate, ordering and performing treatments and interventions, ordering and review of laboratory studies, ordering and review of radiographic studies and re-evaluation of patient's condition. [facility] CT Foot Left Without Contras ton 06-03-2020 1. There appears to be a small amount of soft tissue swelling along the plantar and medial aspect of the 1st toe which may be due to a cellulitis, but this is nonspecific. There is no CT evidence of osteomyelitis. 2. There are degenerative and postsurgical changes of the ankle as described above. Workstation ID: [id number] [facility] Interface, Rad In Fu ji Speechq - 06/03/2020 3:31 PM EST EXAMINATION: CT scan left foot and ankle without contrast 06/03/2020 HISTORY: ORDERING SYSTEM PROVIDED HISTORY: infected great toe, TECHNOLOGIST PROVIDED HISTORY: Illness/Other Reason for exam: infecttion LT greater toe, with redness extending into the foot, pain Encounter Type: Initial Additional signs and symptoms: none ORDERING SYSTEM PROVIDED DIAGNOSIS CODES: COMPARISON: None. TECHNIQUE: Multiple contiguous axial CT images of the left foot and ankle were obtained without contrast. Sagittal and coronal reformatted images were made. Dose reduction techniques were achieved by using automated exposure control and/or adjustment of mA and/or kV according to patient size and/or use of iterative reconstruction technique. FINDINGS: There is a large os trigonum. There appear to be mild degenerative changes at its synchondrosis. There appear to be moderate-severe degenerative changes involving the medial aspect of the tibiotalar joint. There are postsurgical changes involving the lateral malleolus and the adjacent lateral aspect of the body of the talus from prior lateral ligament reconstruction surgery. There appear to be at least mild degenerative changes of the talofibular joint. There appears to be a probable ovoid 9 mm ossific loose body within the anterior aspect of the tibiotalar joint recess. No acute fracture or dislocation is seen. There appears to be a small amount of soft tissue swelling along the plantar and medial aspect of the 1st toe. No osseous erosion is seen. No focal fluid density collection is identified. IMPRESSION: 1. There appears to be a small amount of soft tissue swelling along the plantar and medial aspect of the 1st toe which may be due to a cellulitis, but this is nonspecific. There is no CT evidence of osteomyelitis. 2. There are degenerative and postsurgical changes of the ankle as described above. Workstation ID: [id number] [facility] EXAMINATION: CT scan left foot and ankle without contrast 06/03/2020 HISTORY: ORDERING SYSTEM PROVIDED HISTORY: infected great toe, TECHNOLOGIST PROVIDED HISTORY: Illness/Other Reason for exam: infecttion LT greater toe, with redness extending into the foot, pain Encounter Type: Initial Additional signs and symptoms: none ORDERING SYSTEM PROVIDED DIAGNOSIS CODES: COMPARISON: None. TECHNIQUE: Multiple contiguous axial CT images of the left foot and ankle were obtained without contrast. Sagittal and coronal reformatted images were made. Dose reduction techniques were achieved by using automated exposure control and/or adjustment of mA and/or kV according to patient size and/or use of iterative reconstruction technique. FINDINGS: There is a large os trigonum. There appear to be mild degenerative changes at its synchondrosis. There appear to be moderate-severe degenerative changes involving the medial aspect of the tibiotalar joint. There are postsurgical changes involving the lateral malleolus and the adjacent lateral aspect of the body of the talus from prior lateral ligament reconstruction surgery. There appear to be at least mild degenerative changes of the talofibular joint. There appears to be a probable ovoid 9 mm ossific loose body within the anterior aspect of the tibiotalar joint recess. No acute fracture or dislocation is seen. There appears to be a small amount of soft tissue swelling along the plantar and medial aspect of the 1st toe. No osseous erosion is seen. No focal fluid density collection is identified. [facility] Chem 7on 06-03-2020 Anion gap [Moles/Vol] 11 mmol/L 10 - 2 0 mmol/L [facility] Chloride [Moles/Vol] 109 mmol/L High 98 - 10 8 mmol/L [facility] Creatinine [Mass/Vol] 1.28 mg/dL High 0.40 - 1.10 [facility] GFR/1.73 sq M predicted among non-blacks MDRD (S/P/Bld) [Vol rate/Area] The eGFR should be used for monitoring renal function only and not for medication dosing. [facility] GFR/1.73 sq M.predicted CKD-EPI (S/P/Bld) [Vol rate/Area] 51 Low >=60 mL/min/1.73 m2 [facility] Glucose [Mass/Vol] 288 mg/dL High 65 - 99 mg/dL [facility] HCO3 [Moles/Vol] 27 mmol/L 21 - 32 mmol/L [facility] Interpretation and review of laboratory results Abnormal [facility] Potassium [Moles/Vol] 3.9 mmol/L 3.5 - 5.1 mmol/L [facility] Sodium [Moles/Vol] 143 mmol/L 135 - 145 mmol/L [facility] Urea nitrogen [Mass/Vol] 16 mg/dL 8 - 25 mg/dL [facility] Urea nitrogen/Creatinine [Mass ratio] 12.5 mg/mg [facility] Lactic Acid, Plasmaon 2020 Interpretation and review of laboratory results Abnormal [facility] Lactate [Moles/Vol] 2.6 mmol/L High 0.6 - 2 mmol/L [facility] Otheron 06-03-2020 Extra Tube Hold for add-ons. [place] Comment on above: Auto resulted. POC Glucoseon 06-03-2020 Glucose [Mass/Vol] 288 mg/dL High 65 - 99 mg/dL [facility] Interpretation and review of laboratory results Abnormal [facility] CBC W/DIFFon 08-10-2019 ABS BASOPHILS 0.1 10*3/uL Normal 0.0-0.[address] [facility] Comment on above: Performed By: #### 5 0103 #### [facility] [address] [facility]. [address] ABS IMM GRANS 0.0 10*3/uL Normal 0.0-0.[address] [facility] Comment on above: Performed By: #### 5 0103 #### [facility] [address] [facility]. [address] ABS NEUTROPHILS 7.5 10*3/uL Normal 1.6-7.[address] [facility] Comment on above: Performed By: #### 5 0103 #### [facility] [address] Basophils/100 WBC (Bld) 0.7 % Normal 0.0-1.[address] [facility] Comment on above: Performed By: #### 5 0103 #### [facility] [address] [facility] [address] Eosinophils (Bld) [#/Vol] 0.2 10*3/uL Normal 0.0-0.[address] [facility] Comment on above: Performed By: #### 5 0103 #### [facility] [address] [facility] [place] [address], [facility] Eosinophils/100 WBC (Bld) 1.5 % Normal 0.0-6.[address] [facility] Comment on above: Performed By: #### 5 0103 #### [facility] [address] Erythrocyte distribution width (RBC) [Ratio] 12.0 % Normal 11.5-15.[address] [facility] Comment on above: Performed By: #### 5 0103 #### [facility] [address] Hematocrit (Bld) [Volume fraction] 40.4 % Normal 36.0-45.[address] [facility] Comment on above: Performed By: #### 5 0103 #### [facility] [address] [place] [address], [facility] Hemoglobin (Bld) [Mass/Vol] 13.5 g/dL Normal 12.0-15.[address] [facility] Comment on above: Performed By: #### 5 0103 #### [facility] [address] [place] [address], [facility] IMMATURE GRANS 0.4 % Normal 0.0-1.[address] [facility] Comment on above: Performed By: #### 5 0103 #### [facility] [address] [facility] [address], [facility] Lymphocytes (Bld) [#/Vol] 2.3 10*3/uL Normal 1.2-4.[address] [facility] Comment on above: Performed By: #### 5 0103 #### [facility] [address] [place] [address], [facility] Lymphocytes/100 WBC (Bld) 21.5 % Normal 20.0-45.[address] [facility] Comment on above: Performed By: #### 5 0103 #### [facility] [address] [facility] [address], [facility] MCH (RBC) [Entitic mass] 29.9 pg Normal 27.0-33.[address] [facility] Comment on above: Performed By: #### 5 3 #### [facility] [address] [facility] [address] MCHC (RBC) [Mass/Vol] 33.4 g/dL Normal 32.0-35.[address] [facility] Comment on above: Performed By: #### 5 3 #### [facility] [address] [facility] [address], [facility] MCV (RBC) [Entitic vol] 89.6 fL Normal 82.0-98.[address] [facility] Comment on above: Performed By: #### 5 3 #### [facility] [address] [facility] [address], [facility] Monocytes (Bld) [#/Vol] 0.6 10*3/uL Normal 0.1-1.[address] [facility] Comment on above: Performed By: #### 5 3 #### [facility] [address] [facility] [place] [address], [facility] MONOS 5.6 % Normal 5.0-12.[address] [facility] Comment on above: Performed By: #### 5 3 #### [facility] [address] [facility] [address], [place] Neutrophils/100 WBC (Bld) 70.3 % Normal 40.0-72.[address] [facility] Comment on above: Performed By: #### 5 102 #### [facility] [address] [facility] [place] [address], [facility] Nucleated RBC/100 WBC (Bld) [Ratio] 0 % Normal 0-[address] [facility] Comment on above: Performed By: #### 5 102 #### [facility] [address] [facility] [place] [address], [facility] PLAT CNT 422 10*3/uL High 150-[address] [facility] Comment on above: Performed By: #### 5 102 #### [facility] [address] [facility] [place] [address], [facility] RBC (Bld) [#/Vol] 4.51 10*6/uL Normal 3.80-5.[address] [facility] Comment on above: Performed By: #### 5 102 #### [facility] [address] [facility] [place] [address], [facility] WBC (Bld) [#/Vol] 10.63 10*3/uL High 4.00-10.[address] [facility] Comment on above: Performed By: #### 5 102 #### [facility] [address] [facility] [place] [address], [facility] COMP METABOLIC PANELon 08-09 Albumin [Mass/Vol] 4.2 g/dL Normal 3.5-5.[address] [facility] Comment on above: Performed By: #### 0 0121 #### [facility] [address] [facility] [place] [address], [facility] ALKALINE PHOSPH 90 IU/L Normal 34-[address] [facility] Comment on above: Performed By: #### 0 0121 #### [facility] [address] [facility] [place] [address], [facility] ALT [Catalytic activity/Vol] 6 U/L Low 7-[address] [facility] Comment on above: Performed By: #### 0 0121 #### [facility] [address] [place] [address], [facility] AST [Catalytic activity/Vol] 9 U/L Low 13-[address] [facility] Comment on above: Performed By: #### 0 0121 #### [facility] [address] [place] [address], [facility] Bilirubin [Mass/Vol] 0.3 mg/dL Normal 0.3-1.[address] [facility] Comment on above: Performed By: #### 0 0121 #### [facility] [address] [place] [address], [facility] Calcium [Mass/Vol] 9.4 mg/dL Normal 8.6-10.[address] [facility] Comment on above: Performed By: #### 0 0121 #### [facility] [address] [place] [id number], [facility] Chloride [Moles/Vol] 104 mmol/L Normal 98-[address] [facility] Comment on above: Performed By: #### 0 0121 #### [facility] [address] [place] [address], [facility] CO2 [Moles/Vol] 25 mmol/L Normal 21-[address] [facility] Comment on above: Performed By: #### 0 0121 #### [facility] [address] [place] [id number], [facility] Creatinine [Mass/Vol] 0.89 mg/dL Normal 0.60-1.[address] [facility] Comment on above: Performed By: #### 0 0121 #### [facility] [address] [place] [address], [facility] GFR/1.73 sq M predicted among blacks MDRD (S/P/Bld) [Vol rate/Area] mL/min/{1.73_m2} Normal >[address] [facility] Comment on above: Performed By: #### 0 0121 #### [facility] [address] [place] [address], [facility] GFR/1.73 sq M predicted among non-blacks MDRD (S/P/Bld) [Vol rate/Area] mL/min/{1.73_m2} Normal >[address] [facility] Comment on above: Performed By: #### 0 0121 #### [facility] [address] [place] [address], [facility] Glucose [Mass/Vol] 155 mg/dL High 70-[address] [facility] Comment on above: Performed By: #### 0 0121 #### [facility] [address] [facility] [place] [address], [facility] Potassium [Moles/Vol] 4.3 mmol/L Normal 3.5-5.[address] [facility] Comment on above: Performed By: #### 0 0121 #### [facility] [address] [facility] [place] [address], [facility] Protein [Mass/Vol] 7.2 g/dL Normal 6.0-8.[address] [facility] Comment on above: Performed By: #### 0 0121 #### [facility] [address] [facility] [place] [address], [facility] Sodium [Moles/Vol] 138 mmol/L Normal 136-[address] [facility] Comment on above: Performed By: #### 0 0121 #### [facility] [address] [facility] [place] [address], [facility] Urea nitrogen [Mass/Vol] 24 mg/dL Normal 7-[address] [facility] Comment on above: Performed By: #### 0 0121 #### [facility] [address] [facility] [place] [address], [facility] CT LUMBAR SPINE WO CONTRASTo n 08-10-2019 CT LUMBAR SPINE WO CONTRAST [facility] Department of Radiology [address] [place] [id number] Patient Name: ADDIE JEAN BAPTISTE : 1975 Sex: F Age: Race: White Pt. Location: [facility] Patient Status: E Ordered Date: 08/10/2019 7:30:00 PM Completed Date: 08/10/2019 08:04 PM Requesting Provider: AMBROCIO CHAVEZ Attending Provider: AMBROCIO HCAVEZ Report Copy To: Signs & Symptoms: Back Pain (specify level) History: See Comments Comments: Spinal Stenosis Exam: CT LUMBAR SPINE WO CONTRAST CT LUMBAR SPINE WO CONTRAST 08/10/2019 8:04 PM CLINICAL INDICATIONS: Back Pain (specify level) TECHNOLOGIST COMMENTS: QUESTION FOR THE RADIOLOGIST: Spinal Stenosis PROTOCOL: Axial CT images of the spine were obtained without IV contrast. TECHNIQUE: Multidetector CT axial slices of thelumbar spine were obtained without IV contrast. Multiplanar reformats, MIP, volume rendered 3-D images were generated on a separate workstation and reviewed to further define anatomy and possible pathology. COMPARISON: Thoracolumbar spine x-ray from January 09, 2014 FINDINGS: Sagittal reconstruction of the lumbar spine revealed satisfactory alignment with mild disc space narrowing seen at L5-S1 level and vacuum phenomenon seen at T11-12 with adjacent endplate sclerosis and bony spurring at superior endplate of T12. No evidence of acute bony abnormality. Mild lower lumbar spine anterior bony spurring. Facet joints are well aligned Coronal reconstruction revealed a vacuum phenomenon in the sacroiliac joints was mild bony spurring suggesting degenerative arthritis. Axial images evaluated in soft tissues revealed the presence of metallic clips at the gallbladder fossa from prior cholecystectomy. Visualized parts of the abdominal viscera appeared grossly unremarkable apart from 4 mm nonobstructing stone in the inferior pole of the left kidney. The appendix is seen in the right lower quadrant and appeared unremarkable. Few calcified phlebolith are seen in the pelvis. Moderately distended urinary bladder. IMPRESSION: Minimal lumbar spondylosis with minimal central disc bulge at L5-S1 level but without canal stenosis or neural foramen narrowing. Mild bilateral degenerative sacroiliitis. Small nonobstructing left inferior pole renal stone. Evidence of prior cholecystectomy. All CT scans at this facility use dose modulation, iterative reconstruction, and/or weight based dosing when appropriate to reduce radiation dose to as low as reasonably achievable Electronically signed: Carie Sanchez. Transcribed by: [email or web address], User Resident: Electronically Signed by: CARIE SANCHEZ @ 08/10/2019 08:[address] [facility] Comment on above: Order Comment: Spina l Stenosis KEPPRA ILon 08-10-[address] [facility] Comment on above: Result Comment: Test Performed by [facility] [address] [place] [address] [id number] - Released 08/10/2019 22:25 KEPPRA 10 ug/mL Normal [facility] Comment on above: Result Comment: A reference range for Keppra has not been well established. The proposed therapeutic range for seizure control is 6-46 ug/mL. Measurement of Levetiracetam (Keppra) can be elevated due to the presence of both Keppra and Brivaracetam (Briviact) in the patient's system. The medications are structurally similar thus cross reactivity is possible. Pharmacokinetics of Keppra are affected by renal function. The relationship between serum concentrations and toxicity is not known. LITHIUMon 08-10-2019 [place] [Moles/Vol] Normal [facility] Comment on above: Result Comment: Test Performed by [facility] [address] [place] [address] [id number] - Released 08/10/2019 22:35 Result changed by IF on 08/10/2019 22:35. The previous value was Test Performed by [facility] [address] [place] [address] [phone].. [place] [Moles/Vol] mmol/L Low 0.6-1.[address] [facility] POC URINE PREGNANCYon 2019 Beta HCG ( test) Ql (U) Negative Normal NEGATIVE [facility] Comment on above: Result Comment: Perf ormed in Emergency Department. Performed By: #### 8 4140 #### [facility] [address] [place] [address], [facility] TOX PANEL URINEon 08-10-2019 50 THC Negative Normal NEGATIVE [facility] Comment on above: Performed By: #### 3 1079 #### [facility] [address] [place] [address], [facility] BARBITURATES Negative Normal NEGATIVE [facility] Comment on above: Performed By: #### 3 1079 #### [facility] [address] [place] [address], [facility] Benzodiazepines Ql (U) Negative Normal NEGATIVE [facility] Comment on above: Performed By: #### 3 1079 #### [facility] [address] [place] [address], [facility] Cocaine Ql (U) Negative Normal NEGATIVE [facility] Comment on above: Performed By: #### 3 1079 #### [facility] [address] [place] [address], [facility] Methadone Ql (U) Negative Normal NEGATIVE [facility] Comment on above: Performed By: #### 3 1079 #### [facility] [address] [place] [address], [facility] MONO AMPHET Negative Normal NEGATIVE [facility] Comment on above: Performed By: #### 3 1079 #### [facility] [address] [place] [address], [facility] Opiates Ql (U) Negative Normal NEGATIVE [facility] Comment on above: Performed By: #### 3 1079 #### [facility] [address] Phencyclidine Ql (U) Negative Normal NEGATIVE [facility] Comment on above: Performed By: #### 3 1079 #### [facility] [address] [place] [address], [facility] PROPOXYPHENE Negative Normal NEGATIVE [facility] Comment on above: Performed By: #### 3 1079 #### [facility] [address] [facility] [place] [address], [facility] TRICYCLICS Positive Abnormal NEGATIVE [facility] Comment on above: Performed By: #### 3 1079 #### [facility] [address] [facility] [address] VALPROIC ACIDon 08-10-2019 VALPROIC ACID (DEPAKOTE) 57 mcg/mL Low 60-[address] [facility] Comment on above: Performed By: #### 4 6956 #### [facility] [address] CHEST 2 VIEW PA AND LATon CHEST 2 VIEW PA AND LAT Patient Name: ORGAN, ADDIE STUDY: TH CHEST 2 VIEW PA AND LAT; 04/07/2019 7:13 am INDICATION: Pneumothorax. COMPARISON: 04/06/2019 ACCESSION NUMBER(S): [id number] ORDERING CLINICIAN: RADHA STEELE FINDINGS: There is right jugular implanted venous port catheter left subclavian transvenous pacemaker in apparent satisfactory position unchanged. There is no evidence of right or left pneumothorax. CARDIOMEDIASTINAL SILHOUETTE: Cardiomediastinal silhouette is normal in size and configuration. LUNGS: Lungs are clear. ABDOMEN: No remarkable upper abdominal findings. BONES: No acute osseous changes. IMPRESSION: 1. No evidence of acute cardiopulmonary process. Satisfactory appearance post pacemaker/ICD implant Electronically signed by: MK HERNANDEZ MD Normal [facility] Discharge [id number] Discharge Profile2 Discharge Orders: Problem List: Additional Dx: AICD (automatic cardioverter/defibrillato r) present: Onset Date: 07-Apr-2019, Catalog Name: Presence of automatic (implantable) cardiac defibrillator Ventricular tachycardia (paroxysmal): Catalog Name: Ventricular tachycardia Hospital Course (Home Care/Gold Form): Hospital Course: Hospital Course: include significant abnormal lab values 43 year old female admitted to with history of sustained Ventricular tachycardia for electrophysiology studies and PPM upgrade to dual chamber ICD. Patient underwent EPStuday and dual chamber ICD upgrade currently with a [employer] [id number] Evera MRI XT DR device. See full operative report per Dr Noble. At this time Left prepectoral site is covered with aquacell dressing D I, no drainage, or hematoma noted. CXR shows leads in good position and no pneumothorax. Dual chamber ICD check shows normal lead and device function. Post procedure potential complication, activity restriction, medications. and follow up reviewed with patient. OK to discharge home. Follow up with 1 week wound check and 3 month follow up with EP in [facility] office, CXR, and device check. Provider FINAL REVIEW of Orders: Final Review: Final Review of Medication Reconciliation and Orders Completedby EDUCATIONAL SPEECH LANGUAGE CLINICIAN Reviewing ProviderAmy MARY Steele at 07-Apr-2019 13:43:42 Appointments: Follow-Up Appointment 01[facility] Reason for Referralwound check Scheduled Date/[id number] 02:30 Phone [phone] Follow-Up Appointment 02[facility] Reason for Referralchest X-Ray Scheduled Date/[id number] 02:15 Phone [phone] Follow-Up Appointment 03: [facility] Reason for Referraldevice check Scheduled Date/[id number] 03:00 Phone [phone] Follow-Up Appointment 04: Physician/Dept/ServiceDr. Noble Scheduled Date/[id number]-6760 03:40 Phone [phone] Electronic Signatures: Radha Steele (LYLE-BEATRIZ) (Signed 07-Apr-2019 13:51) Authored: Discharge Orders, Hospital Course (Home Care/Gold Form), Provider FINAL REVIEW of Orders, Gold Form - [place] Worker Summary Ida Brand (JUANA) (Signed 07-Apr-2019 13:50) Authored: Appointments Last Updated: 07-Apr-2019 13:51 by Radha Steele (EDUCATIONAL SPEECH LANGUAGE CLINICIAN-FURS SALESPERSON) Normal [facility] GLUCOSE-POCTon 04-07-2019 Glucose [Mass/Vol] 150 mg/dL High 74 - 99 [facility] Comment on above: Performed By: #### C BC #### [address] [address] Glucose [Mass/Vol] 205 mg/dL High 74 - 99 [facility] Comment on above: Performed By: #### C BC #### [address] [address] Glucose [Mass/Vol] 365 mg/dL High 74 - 99 [facility] Comment on above: Performed By: #### C BC #### [address] [address] BASIC METABOLIC PANELon 03-25 Anion gap [Moles/Vol] 17 mmol/L Normal 10 - 20 [facility] Comment on above: Performed By: #### B MP #### [address] [address] Calcium [Mass/Vol] 8.8 mg/dL Normal 8.6 - 10.3 [facility] Comment on above: Performed By: #### B MP #### [address] [address] Chloride [Moles/Vol] 97 mmol/L Low 98 - 107 [facility] Comment on above: Performed By: #### B MP #### [address] [address] Creatinine [Mass/Vol] 0.80 mg/dL Normal 0.50 - 1.05 [facility] Comment on above: Performed By: #### B MP #### [address] [address] GFR- AM. >60 Normal >60 [facility] Comment on above: Result Comment: CALC ULATIONS OF ESTIMATED GFR ARE PERFORMED USING THE MDRD STUDY EQUATION FOR THE IDMS-TRACEABLE CREATININE METHODS. CLIN CHEM 2007;53:766-72 Performed By: #### B MP #### [address] [address] GFR-NON AM. >60 Normal >60 [facility] Comment on above: Performed By: #### B MP #### [address] [address] Glucose [Mass/Vol] 429 mg/dL High 74 - 99 [facility] Comment on above: Performed By: #### B MP #### [address] [address] HCO3 (Bld) [Moles/Vol] 21 mmol/L Normal 21 - 32 [facility] Comment on above: Performed By: #### B MP #### [address] [address] Potassium [Moles/Vol] 3.8 mmol/L Normal 3.5 - 5.3 [facility] Comment on above: Performed By: #### B MP #### [address] [address] Sodium [Moles/Vol] 131 mmol/L Low 136 - 145 [facility] Comment on above: Performed By: #### B MP #### [address] [address] Urea nitrogen [Mass/Vol] 16 mg/dL Normal 6 - 23 [facility] Comment on above: Performed By: #### B MP #### [address] [address] CBCon 04-06-2019 Erythrocyte distribution width (RBC) [Ratio] 11.7 % Normal 11.5 - 14.5 [facility] Comment on above: Performed By: #### C BC #### [address] [address] Hematocrit (Bld) [Volume fraction] 40.2 % Normal 36.0 - 46.0 [facility] Comment on above: Performed By: #### C BC #### [address] [address] Hemoglobin (Bld) [Mass/Vol] 13.9 g/dL Normal 12.0 - 16.0 [facility] Comment on above: Performed By: #### C BC #### [address] [address] MCHC (RBC) [Mass/Vol] 34.6 g/dL Normal 32.0 - 36.0 [facility] Comment on above: Performed By: #### C BC #### [address] [address] MCV (RBC) [Entitic vol] 88 fL Normal 80 - 100 [facility] Comment on above: Performed By: #### C BC #### [address] [address] Platelets (Bld) [#/Vol] 306 10*3/uL Normal 150 - 450 [facility] Comment on above: Performed By: #### C BC #### [address] [address] RBC (Bld) [#/Vol] 4.57 x10E12/L Normal 4.00 - 5.20 [facility] Comment on above: Performed By: #### C BC #### [address] [address] WBC (Bld) [#/Vol] 9.4 10*3/uL Normal 4.4 - 11.3 [facility] Comment on above: Performed By: #### C BC #### [address] [address] CHEST 2 VIEW PA AND LATon CHEST 2 VIEW PA AND LAT Patient Name: ORGAN, ADDIE STUDY: TH CHEST 2 VIEW PA AND LAT; 04/06/2019 8:05 am INDICATION: SVT, preop implant. COMPARISON: None. ACCESSION NUMBER(S): [id number] ORDERING CLINICIAN: ROSALIA NOBLE FINDINGS: CARDIOMEDIASTINAL SILHOUETTE: There is a right chest port with tubing extending toward the right internal jugular vein level. The distal aspect the tubing extends to the right atrium level and then is directed anterior. There is a left-sided dual lead cardiac pacing device with leads extending to the right atrium and right ventricle levels respectively. Cardiac silhouette is not significantly enlarged. LUNGS: Inspiratory volume is low. No focal infiltrate is seen.No pleural effusion or pneumothorax. ABDOMEN: Right upper quadrant surgical clips are present. BONES: No acute osseous changes. IMPRESSION: 1. Right chest port with distal aspect of the tubing directed anteriorly at the right atrium level. 2. Low inspiratory volume. No focal infiltrate. Electronically signed by: SHAMEKA PEREZ MD Normal [facility] COAGULATION SCREENon 019 aPTT Coag (Bld) [Time] 29 s Normal 28 - 38 [facility] Comment on above: Result Comment: THE APTT IS NO LONGER USED FOR MONITORING UNFRACTIONATED HEPARIN THERAPY. FOR MONITORING HEPARIN THERAPY, USE THE HEPARIN ASSAY. Performed By: #### C OAGS #### [address] [address] INR Coag (PPP) [Relative time] 1.0 {INR} Normal 0.9 - 1.1 [facility] Comment on above: Performed By: #### C OAGS #### [address] [address] PT Coag (PPP) [Time] 10.8 s Normal 9.7 - 12.7 [facility] Comment on above: Performed By: #### C OAGS #### [address] [address] Daily Progress Note-Electrop hysiologyon 04-06-2019 Daily Progress Note-Electrophysiolog y Service: Electrophysiology Assessment and Plan: Assessment: Electrophysiology Study With ICD Implantation, Pacemaker Removal, Lead Revision Summary: Normal AV adamaris function. Normall His-Purkinje conduction. Concentric VA conduction. No VA conduction with adenosine and V pacing. No sustained VT was induced. PMVT induced. Successful implantation of a dual-chamber cardioverter defibrillator, utilizing existing atrial lead. Satisfactory energy safety margin for ventricular defibrillation. Successful lead revision and explant of pacemaker. The pacing and sensing thresholds were satisfactory. Appropriate detection and treatment of ventricular fibrillation by patient's device. Recommendations: 1.A chest X-ray should be performed and telemetry monitoring continued for 24 hours. 2.A 12 lead ECG should be performed prior to discharge from the hospital. 3.The patient should continue with the present medications. Discharge: 1.The patient left the EP laboratory in stable condition. Follow up: 1.The patient will remain in the hospital overnight for telemetry monitoring and observation, with anticipated discharge on the following day. The patient should be alert for bleeding, swelling, or signs of infection. The patient should call the hand button splitter immediately if symptoms recur, or for any problems. The patient and mother(message left on phone with HIPPA consent) have been instructed accordingly. 2.Follow up with [facility] office in seven days for post-operative wound assessment. 3.Follow up with Device Clinic in twelve weeks for routine device analysis and reprogramming if necessary. Remote monitoring will be instituted and released from [facility] to [facility] as per patient request. Procedures: Complete electrophysiologic testing. HIS Recording. CS recording. NIPS. Arrhythmia induction. Successful lead implantation. Pocket fashioned. Dual-chamber cardioverter defibrillator implantation. Ventricular defibrillation threshold testing. Lead Revision. Pocket Revision. Pacemaker Explant. Venogram. Pre-operative pacemaker analysis and reprogramming. Patient history: Please refer to the detailed history and physical on the patient's medical chart. Diagnosis Sudden cardiac arrest survivor. Ventricular tachycardia. Wide complex tachycardia. Procedure narrative: The risks, benefits, and alternatives to the procedure and sedation were explained to the patient, and informed consent was obtained. The patient was in the fasting state. Electrocautery and RF grounding pads were placed. Self-adhesive anterior-posterior defibrillation pads were applied. A ZOLL defibrillator was used for monitoring and the defibrillator waveform was set to biphasic. The patient was set up for continuous monitoring of surface 12 lead ECG and pulse oximetry. Blood pressure was monitored with automatic cuff measurements. The procedure was performed under IV conscious sedation supplemented with intermittent moderate sedation during arrhythmia conversion testing. Bilateral groins were clipped, prepped with chlorhexidine, and draped in the usual sterile fashion. Local anesthesia: Subcutaneous tissues were infiltrated with Lidocaine 1% to the right femoral vein access site for local anesthesia. 1.The right femoral vein was accessed x 3 using the modified Seldinger technique. 2.Electrophysiologic testing was performed with a multiple catheter technique. The catheters were placed under fluoroscopic guidance. A catheter was placed across the tricuspid valve to record the His bundle. Testing was done with and without provocation. Testing was performed with adenosine at a maximum dose of 6 mg. Measurements of basic intervals and refractory periods were obtained. Protocols included decremental pacing, burst pacing, and programmed stimulation. Stimuli were delivered at high right atrial, coronary sinus, left atrium, right ventricular apex, and right ventricular outflow tract sites. Programmed stimulation from right ventricular apex and right ventricular outflow tract at [address] cycle lengths and using up to 3 extra stimuli to ventricular refractory periods. 3.Arrhythmia was induced. Polymorphic VT was induced. No monomorphic VT was induced. 4.Sheaths were removed. Hemostasis was obtained at the venous access site. The site was compressed manually and a pressure dressing was applied. 5.The upper chest was prepped and draped in the usual sterile fashion. After preoperative IV antibiotic was completely infused, subcutaneous tissues just medial to the right/left deltopectoral area, were infiltrated with Lidocaine 1 % and Marcaine 0.25% for local anesthesia. 6.Using a #15 scalpel, an incision was made, which was extended to the prepectoral fascia using blunt dissection. The left cephalic vein was identified, the distal end was tied off, and using Burleson scissors, a venotomy was created. 7.The cephalic vein was too small to accommodate the lead directly, therefore a micropuncture needle was directly inserted into the cephalic vein, and a micropuncture wire was inserted into the needle. The needle was removed. The wire was advanced to the heart under fluoroscopic guidance. A 5 F sheath and dilator were advanced over the wire. The wire and dilator were removed. 8.A glidewire was advanced to the heart under fluoroscopic guidance, and the sheath was removed. A 9 F sheath was placed over the wire, and the wire and the dilator were removed. A lead was then advanced to the heart via fluoroscopic guidance, and the sheath was peeled away. The ventricle was mapped, and there was increased thresholds throughout the majority of the septum. Extensive mapping was performed. Optimal pacing was at the distal septum, and the lead was fixed to the right ventricular distal septum. After lead placement, appropriate sensing and thresholds were obtained. No diaphragmatic pacing occurred at 10V and 1.5ms. The pacemaker was then removed from the fibrous pocket. Hemostasis was achieved with bovie. The leads were disconnected from the device. Appropriate measurements were obtained. The ventricular lead was isolated and revised. The pin was isolated with a plastic cap and tie of 0 Ethibond. 9.The leads were sutured in place to the pectoralis muscle. A second suture was placed around each lead sleeve. Hemostasis was obtained with bovie cautery, and a tie around the cephalic vein. Lead measurements were reevaluated. 10.A left prepectoral pocket was fashioned. Separate procedure - pocket revision. Additional 35 minutes. The fibrous tissue was excised from the inferior portion of the pocket. A Tyrx pouch was placed. 11.A dual-chamber cardioverter defibrillator (Medtr [id number] #[id number]) was attached to the leads and implanted. 12.The device was interrogated and its parameters recorded; telemetered electrograms and pacing and sensing thresholds were measured. 13.Ventricular defibrillation threshold testing was performed to assess safety margins for pacing, sensing and defibrillation. The device appropriately sensed and detected the episode of ventricular fibrillation. Device-based arrhythmia conversion testing was performed. Energy requirements were measured using a defibrillation threshold protocol. The energy safety margin was noted to be satisfactory. 25 Joules terminated VF. 14.The pocket was flushed with saline and vancomycin. Wound hemostasis was obtained with electrocautery, Fabienne, and manual pressure. The wound was closed in four layers. The skin was approximated with subcuticular suture and skin adhesive. Steri-strips were applied and the incision was covered with a sterile Aquacel dressing. Manual pressure was applied. See signed procedural log and parameters. Vascular access and catheter properties: Entry site Sheath Locations Catheter Type Right femoral vein 6 Fr high RA, CS Bpst Sci [place] new access Right femoral vein 6 Fr His-bundle (right side) Eddy Sci Vikingnew access Right femoral vein 6 Fr RV apex, RVOT Edd[place] Sci [place] new access Complications: The patient tolerated the procedure without any complications or incident. EBL 0 cc Specimens obtained: No Prepared and signed by. Electronic Signatures: Rosalia Noble) (Signed 06-Apr-2019 16:32) Authored: Service, Objective Data, Assessment and Plan, Signature/Cosignature/Att estation Last Updated: 06-Apr-2019 16:32 by Rosalia Noble) Normal [facility] GLUCOSE-POCTon 04-06-2019 Glucose [Mass/Vol] 409 mg/dL High 74 - 99 [facility] Comment on above: Performed By: #### C BC #### [address] [address] Glucose [Mass/Vol] 136 mg/dL High 74 - 99 [facility] Comment on above: Performed By: #### C BC #### [address] [address] Glucose [Mass/Vol] 167 mg/dL High 74 - 99 [facility] Comment on above: Performed By: #### C BC #### [address] [address] Glucose [Mass/Vol] 218 mg/dL High 74 - [address] [place] [address] Comment on above: Performed By: #### C BC #### [address] [address] Glucose [Mass/Vol] 338 mg/dL High 74 - 99 [facility] Comment on above: Performed By: #### G EMELY #### [address] [address] Glucose [Mass/Vol] 415 mg/dL High 74 - 99 [facility] Comment on above: Performed By: #### G EMELY #### [address] [place] [address] HCG,SERUM QUALITATIVEon 03-25 HCG,SERUM QUALITATIVE Negative Normal Negative [facility] Comment on above: Performed By: #### H CGS #### [address] [address] Patient Profile - Preop v2on 04-06-2019 Patient Profile - Preop v2 Profile: Initial Info: How to be AddressedCathy Spoken Language PreferredEnglish Source of Informationpatient; family Are you currently using the Personal Electronic Health Record or [employer] Are you interested in learning more about [employer] for the management of your healthnot at this time Stated Reason for AdmissionEPS Primary Contact Name and NumberSharon Organ [phone] Limitations on Visitors/Phone Callsnone Patient Belongingsremains with patient Patient Belongings Remaining with Patientcell phone/electronics; clothing Medications Brought to Hospitalyes General Health: Weight in kg91.1 kilogram(s) Weight in kxn331.8 pound(s) Weight Methodstated Scale Typestanding Height in cm157.4 centimeter(s) Height in feet5 feet Height in inches2 inch(es) Height Methodstated BMI (kg/m2)36.771 square meter Patient or Family Member Reaction to Anesthesiano previous reaction Equipment Currently Used at [place], quad/straight Blood Avoidance/Restrictionsnon e Previous Transfusion Reactionno Health Mgmt: Symptoms/Conditions Managed at [facility] Are You Currently Breastfeedingno Barriers to Managing Healthnone Relationship/Environ: Resource/Environmental Concernsnone Services Anticipated at Transitionnone Lives Withspouse Living Arrangementshouse Anticipated Transition Toc[place] cob Substance: Current or Former Substance Use never: e-Cigarette/Vaping, Alcohol, Street Drugs YES: Cigarette/Tobacco Tobacco Cessation Education (provide if tobacco use within the last 12 mos) patient declined Risk Screens: Advance Directive/DNRno Advance Directive Information Givenpatient/family declined Advance Directive Mental Healthnot applicable During the past month, have you often been bothered by feeling down, depressed or hopelessno During the past month, have you often had little interest or pleasure in doing thingsno Have you had any thoughts of harming yourselfno Have you had any thoughts of harming anyone elseno Are you or have you been threatened or abused physically,emotionally or sexually abused by anyoneno Do you feel UNSAFE going back to the place you are livingno Patient is Able to be Assessed for Learningyes Factors Influencing Readiness to Learninterest in learning Factors that Impact Ability to Learnnone Devices/Methods Used to Communicatenone Learning Preferencesindividual instruction Cultural Considerationsnone Developmental Considerationsnone Presybeterian Considerationsnone Other learner availableno [place] RiskPatient location auto qualifies him/her for HIGH RISK. 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 notifiedno Pain Scalenumerical 0-10 Pain Scale Educationteaching provided Current Pain Level0 = None Acceptable Pain Level2 = Mild Expression of Pain (nonverbal)none Lifestyle Changes/Adaptations in Response to Painno change Barriers to Reporting Painnone Chronic Painyes Chronic Lower Extremity pain locationleft, right, knee, foot Information Review: Allergies, Home Meds and Significant Events have been Reviewed and Verified with Patient/Familyyes Allergy, Intolerance, Adverse Event: Allergies: contrast (specific type unknown): Contrast, Unknown, Active Toradol: Drug, Hives/Urticaria, Active tramadol: Drug, Unknown, Active vancomycin: Drug, Unknown, Active codeine: Drug, Hives/Urticaria, Active Darvocet A500: Drug, Other, Active fentanyl: Drug, Itching, Active ibuprofen: Drug, Other, Active Electronic Signatures: Kristi Soriano (JAEL) (Signed 06-Apr-2019 07:39) Authored: Profile, Additional Information Last Updated: 06-Apr-2019 07:39 by Kristi Soriano) [facility] Preop Checkliston 04-06-2019 Preop Checklist Preop Checklist: Preop Checklist: Arrival [id number] Arrival Time06:38 Temperature C36.1 degrees C Temperature F96.9 degrees F Heart Rate60 beats per minute Respiratory Rate18 breath per minute Blood Pressure Bsjdxomr61 mm/Hg Blood Pressure Jxvwogsay19 mm/Hg NPO [id number] 23:00 ID Band Onyes Allergy Bandyes H&P Completeyes EKG Performedyes Chest X-Ray Performedyes HCG Urine TestN/A Chlorhexadine Bath Givennot applicable Nasal Antiseptic Appliednot applicable Hair Washednot applicable Soap and water bath with hair shampoo the night before surgerynot applicable Hat placed on infant prior to transportnot applicable SCD's Appliednot applicable SHANTEL Hose Appliednot ordered Denturesat home Prostheticsnot applicable Hearing Aidsnot applicable Valuables Securednot applicable Glasses / Contactsnot applicable Electronic Signatures: Kristi Sroiano (JAEL) (Signed 06-Apr-2019 07:42) Authored: Preop Checklist Last Updated: 06-Apr-2019 07:42 by Kristi Soriano (RN) Normal [facility] UA MICROSCOPICon 04-06-2019 BACTERIA 1+ /HPF Abnormal [facility] Comment on above: Performed By: #### C BC #### [address] [address] MUCUS 1+ /LPF Normal [facility] Comment on above: Performed By: #### C BC #### [address] [address] RBC 3 /HPF Normal 0-5 [facility] Comment on above: Performed By: #### C BC #### [address] [address] SQUAMOUS EPITH. CELLS 3 /HPF Normal [facility] Comment on above: Performed By: #### C BC #### [address] [address] WBC 8 /HPF Abnormal 0-5 [facility] Comment on above: Performed By: #### C BC #### [address] [address] URINALYSISon 04-06-2019 Appearance (U) CLEAR Normal CLEAR [facility] Comment on above: Performed By: #### U A #### [address] [address] Bilirubin (U) [Mass/Vol] Negative Normal NEGATIVE [facility] Comment on above: Performed By: #### U A #### [address] [address] BLOOD Negative Normal NEGATIVE [facility] Comment on above: Performed By: #### U A #### [address] [address] Color (U) YELLOW Normal STRAW,YELLO W [facility] Comment on above: Performed By: #### U A #### [address] [address] Glucose [Mass/Vol] >=500 (3+) Abnormal NEGATIVE [facility] Comment on above: Performed By: #### U A #### [address] [address] Ketones Ql (U) Negative Normal NEGATIVE [facility] Comment on above: Performed By: #### U A #### [address] [address] Leukocyte esterase Test strip Ql (U) TRACE Abnormal NEGATIVE [facility] Comment on above: Performed By: #### U A #### [address] [address] Nitrite Ql (U) Positive Abnormal NEGATIVE [facility] Comment on above: Performed By: #### U A #### [address] [address] pH (Bld) 5.0 Normal 5.0 - 8.0 [facility] Comment on above: Performed By: #### U A #### [address] [address] Protein (U) [Mass/Vol] Negative Normal NEGATIVE [facility] Comment on above: Performed By: #### U A #### [address] [address] Specific gravity (U) [Rel density] 1.031 Normal 1.005 - 1.035 [facility] Comment on above: Performed By: #### U A #### [address] [address] Urobilinogen Qn (U) <2.0 Normal 0.0 - 1.9 [facility] Comment on above: Performed By: #### U A #### [address] [address] Laboratory Studieson 07-08-2 019 Calcium [Mass/Vol] 9.8 mg/dL 8.2-10.2 [facility] Chloride [Moles/Vol] 98 mmol/L 95-114 [facility] CO2 [Moles/Vol] 19.7 mmol/L Low 22.0-30.0 [facility] Creatinine [Mass/Vol] 0.88 mg/dL 0.44-1.03 [facility] GFR/1.73 sq M predicted among non-blacks MDRD (S/P/Bld) [Vol rate/Area] mL/min/{1.73_m2} [facility] GFR/1.73 sq M.predicted MDRD (S/P/Bld) [Vol rate/Area] mL/min/{1.73_m2} [facility] Comment on above: GFR estimated refere nce range: According to KDOQI guidelines, <60 ml/min/1.73m2 is sufficient to diagnose a patient with chronic kidney disease. Glucose [Mass/Vol] 436 mg/dL High 70-100 [facility] Comment on above: ADA recommended refe rence range Random Glucose Reference Range is dependent on time and content of last meal. Glucose of more than 200 mg/dL in a nonstressed, ambulatory subject supports the diagnosis of Diabetes Mellitus. Pharmacy Creatinine Clearance (Chem N/A [facility] Potassium [Moles/Vol] 4.3 mmol/L 3.5-5.1 [facility] Sodium [Moles/Vol] 134 mmol/L Low 136-146 [facility] Urea nitrogen [Mass/Vol] 13 mg/dL 9-23 [facility] Laboratory Studieson 019 Glucose [Mass/Vol] 148 mg/dL [facility] Comment on above: Random Glucose Refer ence Range is dependent on time and content of last meal. Glucose of more than 200 mg/dL in a nonstressed, ambulatory subject supports the diagnosis of Diabetes Mellitus. Basophils (Bld) [#/Vol] 0.1 10*3/uL 0.0-0.2 [facility] Basophils/100 WBC (Bld) 0.4 % [facility] Eosinophils (Bld) [#/Vol] 0.2 10*3/uL 0.0-0.45 [facility] Eosinophils/100 WBC (Bld) 1.6 % [facility] Erythrocyte distribution width (RBC) [Ratio] 12.7 % 11.9-15.3 [facility] Hematocrit (Bld) [Volume fraction] 33.9 % Low 34.0-46.4 [facility] Hemoglobin (Bld) [Mass/Vol] 11.5 g/dL Low 11.8-15.4 [facility] Lymphocytes (Bld) [#/Vol] 3.2 10*3/uL 1.00-4.8 [facility] Lymphocytes/100 WBC (Bld) 25.2 % [facility] MCH (RBC) [Entitic mass] 31.2 pg 24.7-34.3 [facility] MCHC (RBC) [Mass/Vol] 34.0 g/dL 32.0-35.0 [facility] MCV (RBC) [Entitic vol] 92.0 fL 80-100 [facility] Monocytes (Bld) [#/Vol] 0.6 10*3/uL 0.0-0.8 [facility] Monocytes/100 WBC (Bld) 4.3 % [facility] Neutrophils (Bld) [#/Vol] 8.7 10*3/uL High 1.8-7.7 [facility] Neutrophils/100 WBC (Bld) 68.5 % [facility] Nucleated RBC/100 WBC (Bld) [Ratio] 0.0 % 0-0.5 [facility] Platelet mean volume (Bld) [Entitic vol] 7.3 fL 6.3-10.7 [facility] Platelets (Bld) [#/Vol] 297 10*3/uL 150-450 [facility] RBC (Bld) [#/Vol] 3.68 10*6/uL 3.60-5.00 [facility] WBC (Bld) [#/Vol] 12.7 10*3/uL High 4.5-11.0 [facility] Glucose [Mass/Vol] Glu2: cleaned meter [facility] Laboratory Studieson 04-16-2 019 Glucose [Mass/Vol] Will notify dr/rn [facility] Albumin [Mass/Vol] 3.0 g/dL Low 3.2-5.5 [facility] Albumin/Globulin [Mass ratio] 1.1 {ratio} [facility] ALP [Catalytic activity/Vol] 68 U/L 32-92 [facility] ALT No additional P-5'-P [Catalytic activity/Vol] 12 U/L 10-60 [facility] AST [Catalytic activity/Vol] 17 U/L 10-42 [facility] Bilirubin [Mass/Vol] 0.6 mg/dL 0.3-1.2 [facility] Cholesterol [Mass/Vol] 123 mg/dL Low 140-200 [facility] Comment on above: Chol less than 200 m g/dl low risk Chol 201-239 mg/dl borderline risk Chol 240 mg/dl and greater high risk Cholesterol in HDL [Mass/Vol] 51 mg/dL 35-85 [facility] Comment on above: HDL CHOL ATP-III CLA SSIFICATION Cardiovascular Risk HDL > or equal to 60 mg/dL LOW HDL < 40 mg/dL HIGH Cholesterol in LDL [Mass/Vol] 57 mg/dL 0-100 [facility] Comment on above: LDL ATP III CLASSIFI CATION LDL less than 100 mg/dL Optimal LDL 100-129 mg/dL Near or above optimal LDL 130-159 mg/dL Borderline high LDL 160-189 mg/dL High LDL greater than 189 mg/dL Very high Cholesterol in VLDL [Mass/Vol] 15 mg/dL [facility] Cholesterol.total/Cho lesterol in HDL [Mass ratio] 2.4 {ratio} [facility] Globulin (S) [Mass/Vol] 2.7 g/dL [facility] Protein [Mass/Vol] 5.7 g/dL Low 6.1-7.9 [facility] Triglyceride [Mass/Vol] 75 mg/dL 35-149 [facility] Comment on above: TRIG ATP III CLASSIF ICATION TRIG less than 150 mg/dL Normal TRIG 150-199 mg/dL Borderline high TRIG 200-500 mg/dL High TRIG greater than 500 mg/dL Very high Standard traceable to the Center for Disease Conrtrol and Prevention (CDC) test method. Laboratory Studieson 019 Lactate [Moles/Vol] 1.4 mmol/L [facility] CK [Catalytic activity/Vol] 35 U/L 22269 [facility] INR Coag (PPP) [Relative time] 1.0 {INR} [facility] Comment on above: INR Therapeutic Rang e A) Pre- and Peroperative OAT started two weeks before surgery. NOT HIP SURGERY: 1.5 - 2.5 HIP SURGERY: 2 - 3 B) Primary and secondary prevention of venous THROMBOSIS: 2 - 3 C) Active venous thrombosis, pulmonary embolism and prevention of recurrent venous thrombosis: 2 - 3 D) Prevention of arterial thromboembolism including patients with mechanical heart valves: 3 - 4.5 Prolactin [Mass/Vol] 6.20 ng/mL 3.34-26.72 [facility] PT Coag (PPP) [Time] 11.0 s 9.0-12.9 [facility] Troponin I.cardiac [Mass/Vol] ng/mL 0-0.02 [facility] Comment on above: KEISHA ND Cut off value > or equal to 0.03 ng/mL in conjunction with clinical conditions of myocardial infarction. (www.escardio.org/guidelines) Amphetamines Ql (U) Negative [facility] Barbiturates Ql (U) Negative [facility] Benzodiazepines Ql (U) Negative [facility] Bilirubin Ql (U) Negative [facility] Cannabinoids Screen Ql (U) Negative [facility] Comment on above: These are unconfirme d results and should not be used for legal purposes. Drug Cut-Off Concentration: AMPH 1000 ng/mL DIANE 200 ng/mL ALICE 200 ng/mL COCM 300 ng/mL OP 300 ng/mL PCP 25 ng/mL THC 20 ng/mL Clarity Refractometry automated (U) Clear [facility] Cocaine Ql (U) Negative [facility] Color (U) Yellow [facility] Glucose Auto test strip (U) [Mass/Vol] 500 mg/dL High [facility] HCG ( test) Ql (U) Negative [facility] Hemoglobin Auto test strip Ql (U) Negative [facility] Ketones (U) [Mass/Vol] Negative [facility] Leukocyte esterase Auto test strip Ql (U) Negative [facility] Nitrite Ql (U) Negative [facility] Opiates Ql (U) Negative [facility] pH (U) 6.0 [pH] 5.0-9.0 [facility] Phencyclidine Ql (U) Negative [facility] Protein (U) [Mass/Vol] Negative [facility] Specific gravity (U) [Rel density] 1.020 1.001-1.030 [facility] Urobilinogen (U) [Mass/Vol] Normal mg/dL [facility] Microbiology Studieson 07-16 Staphylococcus aureus Staphylococcus aureus [facility] BASIC METABOLIC PANELon Glucose mass conc 565 mg/dL Critically high 70-100 [facility] Comment on above: Order Comment: GARCIA ER 06/25/2018, 15:09, KJD, Called with verbal read back by Romeo Castillo. Result Comment: RESU LTS REPEATED AND CONFIRMED Performed By: #### B ASIC #### [address] [address] Anion gap molar conc 15.6 mmol/L Normal 10-14 [facility] Comment on above: Order Comment: GARCIA ER 06/25/2018, 15:09, KJD, Called with verbal read back by Romeo Castillo. Performed By: #### B ASIC #### [address] [address] Calcium mass conc 9.8 mg/dL Normal 8.4-10.2 [facility] Comment on above: Order Comment: GARCIA D ER 06/25/2018, 15:09, KJD, Called with verbal read back by Romeo Castillo. Performed By: #### B ASIC #### [address] [address] CO2 molar conc 25.0 mm/Hg Normal 22.0-30.0 [facility] Comment on above: Order Comment: GARCIA D ER 06/25/2018, 15:09, KJD, Called with verbal read back by Romeo Castillo. Performed By: #### B ASIC #### [address] [address] Urea nitrogen mass conc 11 mg/dL Normal 7-22 [facility] Comment on above: Order Comment: RADHA Long ER 06/25/2018, 15:09, KJD, Called with verbal read back by Romeo Castillo. Performed By: #### B ASIC #### [address] [address] Creatinine mass conc 0.70 mg/dL Normal 0.70-1.20 [facility] Comment on above: Order Comment: GARCIA D ER 06/25/2018, 15:09, KJD, Called with verbal read back by Romeo Castillo. Performed By: #### B ASIC #### [address] [address] GFR/1.73 sq M predicted among non-blacks MDRD vol rate/area (S/P/Bld) 98 mL/min/1.73 m2 Normal >60 [facility] Comment on above: Order Comment: RADHA Long ER 06/25/2018, 15:09, KJD, Called with verbal read back by Romeo Castillo. Result Comment: Refe rence Range: 59 to 44 - Mild to moderate loss of kidney function 44 to 30 - Moderate to Severe loss of kidney function 29 to 15 - Severe loss of kidney function <15 - Kidney failure The estimated GFR is based on the MDRD formula for assessment of stable or slowly declining kidney function in adults. Estimated GFR values are not accurate in: -Obese (BMI>34) OR underweight (BMI<20) people -The very old OR very young -Races other than or -Guyanese -People with acute illnesses, amputations, or acute kidney failure. Estimated GFR should be interpreted in clinical context and an alternative method such as a timed urine collection for creatinine clearance used to verify questionable results. (Ref. National Kidney Foundation 2015) Performed By: #### B ASIC #### [address] [address] Chloride molar conc 94 mmol/L Low 100-110 [facility] Comment on above: Order Comment: GARCIA D ER 06/25/2018, 15:09, KJD, Called with verbal read back by Romeo Castillo. Performed By: #### B ASIC #### [address] [address] Potassium molar conc 4.1 mmol/L Normal 3.5-5.0 [facility] Comment on above: Order Comment: GARCIA D ER 06/25/2018, 15:09, KJD, Called with verbal read back by Romeo Castillo. Performed By: #### B ASIC #### [address] [address] Sodium molar conc 135 mmol/L Low 136-145 [facility] Comment on above: Order Comment: GARCIA D ER 06/25/2018, 15:09, KJD, Called with verbal read back by Romeo Castillo. Performed By: #### B ASIC #### [address] [address] carp1 0 HR DRAWon 06-25-2018 Troponin I.cardiac mass conc ng/mL Normal 0.012-0.120 [facility] Comment on above: Order Comment: GARCIA D ER 06/25/2018, 15:09, KJD, Called with verbal read back by Romeo Castillo. Result Comment: RE FERENCE RANGE IS 0.012 - 0.120 ng/ml cTnI - The cutoff of 0.120 ng/ml is recommended for diagnosis of AMI, yielding optimal performance of 95% sensitivity and 93% specificity. Performed By: #### C TP0 #### [address] [address] CARP1 3 HR DRAWon 06-25-2018 Troponin I.cardiac mass conc ng/mL Normal 0.012-0.120 [facility] Comment on above: Result Comment: RE FERENCE RANGE IS 0.012 - 0.120 ng/ml cTnI - The cutoff of 0.120 ng/ml is recommended for diagnosis of AMI, yielding optimal performance of 95% sensitivity and 93% specificity. Performed By: #### C TP3 #### [address] [address] CBC WITH DIFFERENTIALon 02-0 Basophils #/vol (Bld) 0.07 10*3/uL Normal 0.00-0.20 [facility] Comment on above: Performed By: #### C BCD #### [place] [id number] Basophils #/vol (Bld) 0.7 % Normal 0.0-2.0 [facility] Comment on above: Performed By: #### C BCD #### [address] [address] Eosinophils #/vol (Bld) 0.12 10*3/uL Normal 0.00-0.50 [facility] Comment on above: Performed By: #### C BCD #### [address] [address] Eosinophils/100 WBC (Bld) 1.2 % Normal 0.0-4.0 [facility] Comment on above: Performed By: #### C BCD #### [address] [address] Erythrocyte distribution width Ratio (RBC) 11.5 % Normal 11.5-14.5 [facility] [place] Comment on above: Performed By: #### C BCD #### [address] [address] Hematocrit Volume Fraction (Bld) 42.3 % Normal 35.0-47.0 [facility] Comment on above: Performed By: #### C BCD #### [address] [address] Hemoglobin mass conc (Bld) 14.8 g/dL Normal 12.0-16.0 [facility] Comment on above: Performed By: #### C BCD #### [address] [address] Lymphocytes #/vol (Bld) 1.60 10*3/uL Normal 1.00-4.80 [facility] Comment on above: Performed By: #### C BCD #### [address] [address] Lymphocytes/100 WBC (Bld) 15.6 % Low 24.0-44.0 [facility] Comment on above: Performed By: #### C BCD #### [address] [address] MCH Entitic mass (RBC) 31.1 pg Normal 25.6-32.2 [facility] Comment on above: Performed By: #### C BCD #### [address] [address] MCHC mass conc (RBC) 35.0 g/dL Normal 32.0-36.0 [facility] Comment on above: Performed By: #### C BCD #### [address] [address] MCV Entitic volume (RBC) 88.9 fL Normal 82.0-98.0 [facility] [place] Comment on above: Performed By: #### C BCD #### [address] [address] Monocytes #/vol (Bld) 0.56 10*3/uL Normal 0.20-1.20 [facility] [place] above: Performed By: #### C BCD #### [address] [address] Monocytes/100 WBC (Bld) 5.5 % Normal 5.0-12.0 [facility] [place] Comment on above: Performed By: #### C BCD #### [address] [address] Neutrophils #/vol (Bld) 7.84 10*3/uL High 2.00-7.50 [facility] [place] Comment on above: Performed By: #### C BCD #### [address] [address] Neutrophils/100 WBC (Bld) 76.6 % High 36.0-66.0 [facility] [place] Comment on above: Performed By: #### C BCD #### [address] [address] NRBC COUNT 0.00 Normal 0.00-0.50 [facility] [place] Comment on above: Performed By: #### C BCD #### [address] [address] Nucleated RBC/100 WBC Ratio (Bld) 0.0 % Normal [facility] [place] Comment on above: Performed By: #### C BCD #### [address] [address] Platelet mean volume Entitic volume (Bld) 9.7 fL Normal 9.4-12.4 [facility] [place] Comment on above: Performed By: #### C BCD #### [address] [address] Platelets #/vol (Bld) 314 10*3/uL Normal 150-400 [facility] [place] Comment on above: Performed By: #### C BCD #### [address] [address] RBC #/vol (Bld) 4.76 10*6/uL Normal 3.80-5.10 [facility] [place] Comment on above: Performed By: #### C BCD #### [address] [address] WBC #/vol (Bld) 10.23 10*3/uL Normal 4.80-10.80 [facility] Comment on above: Performed By: #### C BCD #### [address] [address] CULTURE-URINEon 06-25-2018 CULTURE-URINE PATIENT: BRIDGET JEAN BAPTISTE LOCATION: [place] Law#: [id number] : 1975 AGE: 43 SEX: F ORDER# [id number] ORDERED BY: PRESTON ESPINO Source: URI Collected: 06/25/18 16:40 Site: Received : 06/25/18 16:46 CULTURE-URINE FINAL 06/27/18 07:52 Isolate 01 >100,000 CFU/mL Escherichia coli DATE: 06/27/18 06:05 __ Isolate Org# 01 Antibiotics DOMENIC __ Amikacin <=16 S Amox/K Clav >16/ R Amp/Sulbactam 16/8 I Ampicillin >16 R Aztreonam <=8 S Cefazolin >16 R Cefepime <=8 S Cefoxitin >16 R Ceftriaxone <=8 S Cefuroxime 16 I Ciprofloxacin <=1 S Ertapenem <=2 S Gentamicin <=4 S Levofloxacin <=2 S Meropenem <=4 S Nitrofurantoin <=32 S Piperacillin/Louis <=16 S Tetracycline <=4 S Tobramycin <=4 S Trimeth/Sulfa <=2/ S [facility] Comment on above: Performed By: #### C URIN #### [address] [address] D-DIMER QUANTITATIVEon 06-25 D-DIMER QUANTITATIVE 0.32 mg/L FEU Normal 0.00-0.50 [facility] Comment on above: Result Comment: 06-16 D-DIMER QUANTITATIVE REFERENCE INTERVAL: Anticoagulant therapy decreases the D-dimer levels and may generate false negative results Quantitative D-dimer performed on the [employer] [id number] analyzer. Cutoff value is 0.50 mg/L FEU in an attempt to obtain a negative predictive value close to 100 percent. (for DVT and PE). Non-VTE causes of elevated D-dimer include: trauma, ND, stroke, sepsis, DIC, active collagen diseases, post-surgery, cancer, thrombolytic therapy, large hematoma, diabetes, and post-. Clinical data and imaging studies may be used in order to confirm a positive D-dimer test. The above D-dimer assay may be used for DIC screening in conjunction with other coagulation procedures (PT, PTT, fibrinogen and platelet count). Pathology consultation is available. 06-16-16 Performed By: #### D DENI #### [address] [address] MAGNESIUMon 06-25-2018 Magnesium mass conc 1.4 mg/dL Low 1.7-2.2 [facility] Comment on above: Order Comment: RADHA Long ER 06/25/2018, 15:09, KJD, Called with verbal read back by Romeo Castillo. Performed By: #### M AG #### [address] [address] UA COMPLETE AND REFLEX TO CU LTUREon 06-25-2018 BACTERIA 4+ /hpf Abnormal NONE [facility] [place] Comment on above: Performed By: #### U RINR #### [address] [address] HYALINE CASTS NONE Normal NONE [facility] [place] Comment on above: Performed By: #### U RINR #### [address] [address] RBC - URINE 7 /hpf High 0-2 [facility] [place] Comment on above: Performed By: #### U RINR #### [address] [address] URINE EPITHELIAL CELLS 1 /hpf Normal 0-5 [facility] [place] Comment on above: Performed By: #### U RINR #### [address] [address] URINE REFLEX CASTS NORMAL Normal [facility] Comment on above: Performed By: #### U RINR #### [address] [address] URINE REFLEX CELLS NORMAL Normal [facility] Comment on above: Performed By: #### U RINR #### [address] [address] URINE REFLEX CRYSTALS NORMAL Normal [facility] Comment on above: Performed By: #### U RINR #### [address] [address] URINE REFLEX YEAST NORMAL Normal [facility] Comment on above: Performed By: #### U RINR #### [address] [address] WBC - URINE 92 /hpf High 0-5 [facility] [place] Comment on above: Performed By: #### U RINR #### [address] [address] Bilirubin.direct mass conc Negative Normal NEGATIVE [facility] [place] Comment on above: Performed By: #### U RINR #### [address] [address] BLOOD Negative Normal NEGATIVE [facility] [place] Comment on above: Performed By: #### U RINR #### [address] [address] Color Nom (U) LIGHT YELLOW Normal [facility] [place] Comment on above: Performed By: #### U RINR #### [address] [address] Glucose Ql (U) >2000 Abnormal NEGATIVE [facility] [place] Comment on above: Performed By: #### U RINR #### [address] [address] Ketones Ql (U) Negative Normal NEGATIVE [facility] [place] Comment on above: Performed By: #### U RINR #### [address] [address] Leukocyte esterase Test strip Ql (U) MODERATE Abnormal NEGATIVE [facility] [place] Comment on above: Performed By: #### U RINR #### [address] [address] NITRITES URINE 2+ mg/dL Abnormal NEGATIVE [facility] [place] Comment on above: Performed By: #### U RINR #### [address] [address] pH (U) 5.5 [pH] Normal 6.0-8.5 [facility] [place] Comment on above: Performed By: #### U RINR #### [address] [address] Protein mass conc (U) Negative Normal [facility] on above: Performed By: #### U RINR #### [address] [address] Specific gravity Relative Density (U) 1.033 Normal 1.010 - 1.030 [facility] [place] Comment on above: Performed By: #### U RINR #### [address] [address] TURBIDITY CLEAR Normal [facility] [place] Comment on above: Performed By: #### U RINR #### [facility] [address] [place] [address] UROBILINOGEN URINE 0.2 mg/dL Normal <2.0 [facility] Comment on above: Performed By: #### U RINR #### [address] [address] METHOD OF COLLECTING URINE Not stated Normal [facility] [place] Comment on above: Performed By: #### U RINR #### [address] [address] XR-Chest Xray - Portable One Viewon 06-25-2018 XR-Chest Xray - Portable One View CLINICAL INDICATION: CHEST PAIN, UNSPECIFIED EXAM DESCRIPTION: XR-Chest Xray - Portable One View 06/25/2018 1:58 pm COMPARISON: 02/26/2007 FINDINGS: The size and contour of the heart and mediastinum are normal. The lungs are clear. Pacemaker has been placed since the prior study. Generator is in the left upper chest. The lungs are underinflated but clear subcutaneous port is noted in the right chest. IMPRESSION: No acute cardiopulmonary disease. Read By: CÉSAR RICE DO Normal [facility] [place] Urinalysis, Routineon 2017 Acetaminophen mass conc Negative Normal NEG [facility] Comment on above: Performed By: #### C DP, BMP, BNP, TROPI, DIME, PT, PTT ####[address] [place] [address] Bilirubin (direct) Negative Normal NEG [facility] Comment on above: Performed By: #### C DP, BMP, BNP, TROPI, DIME, PT, PTT ####[address] [place] [address] Hemoglobin mass conc (Bld) Negative Normal NEG [facility] Comment on above: Performed By: #### C DP, BMP, BNP, TROPI, DIME, PT, PTT ####[address] [place] [address] Nitrite,Ur Positive Abnormal NEG [facility] Comment on above: Performed By: #### C DP, BMP, BNP, TROPI, DIME, PT, PTT ####[address] [place] [address] Turbidity SLIGHTLY CLOUDY Abnormal CLEAR [facility] Comment on above: Performed By: #### C DP, BMP, BNP, TROPI, DIME, PT, PTT ####[address] [place] [address] Urine, color YELLOW Normal YEL [facility] Comment on above: Performed By: #### C DP, BMP, BNP, TROPI, DIME, PT, PTT ####[address] [place] [address] Urine, glucose presence 3+ Abnormal NEG [facility] Comment on above: Performed By: #### C DP, BMP, BNP, TROPI, DIME, PT, PTT ####[address] [place] [address] Urine, leukocyte esterase presence Negative Normal NEG [facility] Comment on above: Result Comment: Perf ormed at [address] [place] [address] Performed By: #### C DP, BMP, BNP, TROPI, DIME, PT, PTT ####[address] [place] [address] Urine, pH 5.5 [pH] Normal 5.0-9.0 [facility] Comment on above: Performed By: #### C DP, BMP, BNP, TROPI, DIME, PT, PTT ####[address] [place] [address] Urine, protein presence Negative Normal NEG [facility] Comment on above: Performed By: #### C DP, BMP, BNP, TROPI, DIME, PT, PTT ####[address] [place] [address] Urine, specific gravity 1.020 Normal 1.010-1.020 [facility] Comment on above: Performed By: #### C DP, BMP, BNP, TROPI, DIME, PT, PTT ####[address] [place] [address] Urobilinogen,Ur Normal Normal NORM [facility] Comment on above: Performed By: #### C DP, BMP, BNP, TROPI, DIME, PT, PTT ####[address] [place] [address] Urinalysis,Microon 8 ----- Normal [facility] Comment on above: Performed By: #### C DP, BMP, BNP, TROPI, DIME, PT, PTT ####[address] [place] [address] Urine WBC's 10 TO 20 Normal 0-5 [facility] Comment on above: Performed By: #### C DP, BMP, BNP, TROPI, DIME, PT, PTT ####[address] [place] [address] Urine, bacteria in sediment 3+ Abnormal NONE [facility] Comment on above: Result Comment: Perf ormed at [address] [place] [address] Performed By: #### C DP, BMP, BNP, TROPI, DIME, PT, PTT ####[address] [place] [address] Urine, epithelial cells in sediment 0 TO 2 Normal 0-25 [facility] Comment on above: Performed By: #### C DP, BMP, BNP, TROPI, DIME, PT, PTT ####[address] [place] [address] Urine, erythrocytes 0 TO 2 Normal 0-2 [facility] Comment on above: Performed By: #### C DP, BMP, BNP, TROPI, DIME, PT, PTT ####[address] [place] [address] Basic Metabolic Profon 09-01 (cont.) Normal [facility] Comment on above: Result Comment: Aver age GFR for 40-49 years old: 99 mL/min/1.73sq mChronic Kidney Disease: <60 mL/min/1.73sq mKidney failure: <15 mL/min/1.73sq meGFR calculated using average adult body mass. Additional eGFR calculator available at:http://www.Endorse.me.Roost/multiple_crcl_2012.htm Performed By: #### C DP, BMP, BNP, TROPI, DIME, PT, PTT ####[address] [place] [address] Anion gap 18 mmol/L High 9-17 [facility] Comment on above: Performed By: #### C DP, BMP, BNP, TROPI, DIME, PT, PTT ####[address] [place] [address] BUN/CRE Ratio 12 Normal 9-20 [facility] Comment on above: Performed By: #### C DP, BMP, BNP, TROPI, DIME, PT, PTT ####[address] [place] [address] Calcium 7.9 mg/dL Low 8.6-10.4 [facility] Comment on above: Performed By: #### C DP, BMP, BNP, TROPI, DIME, PT, PTT ####[address] [place] [address] Chloride 101 mmol/L Normal 98-107 [facility] Comment on above: Performed By: #### C DP, BMP, BNP, TROPI, DIME, PT, PTT ####[address] [place] [address] CO2 20 mmol/L Normal 20-31 [facility] Comment on above: Performed By: #### C DP, BMP, BNP, TROPI, DIME, PT, PTT ####[address] [place] [address] Creatinine 0.60 mg/dL Normal 0.50-0.90 [facility] Comment on above: Performed By: #### C DP, BMP, BNP, TROPI, DIME, PT, PTT ####[address] [place] [address] eGFR (non-black) mL/min/{1.73_m2} Normal >60 [facility] Comment on above: Performed By: #### C DP, BMP, BNP, TROPI, DIME, PT, PTT ####[address] [place] [address] Glucose mass conc 297 mg/dL High 70-99 [facility] Comment on above: Performed By: #### C DP, BMP, BNP, TROPI, DIME, PT, PTT ####[address] [place] [address] Potassium molar conc 3.3 mmol/L Low 3.7-5.3 [facility] Comment on above: Performed By: #### C DP, BMP, BNP, TROPI, DIME, PT, PTT ####[address] [place] [address] Sodium 139 mmol/L Normal 135-144 [facility] Comment on above: Performed By: #### C DP, BMP, BNP, TROPI, DIME, PT, PTT ####[address] [place] [address] Staging: Normal [facility] Comment on above: Result Comment: Stag e 1: Some kidney damage normal GFRStage 2: Mild kidney damage GFR 60-89Stage 3: Moderate kidney damage GFR 30-59Stage 4: Severe kidney damage GFR 15-29Stage 5: Severe kidney damage GFR <15ESRD - chronic treatment by dialysis or transplantPerformed at [address] [place] [address] Performed By: #### C DP, BMP, BNP, TROPI, DIME, PT, PTT ####[address] [place] [address] Urea nitrogen 7 mg/dL Normal 6-20 [facility] Comment on above: Performed By: #### C DP, BMP, BNP, TROPI, DIME, PT, PTT ####[address] [place] [address] Glucose mass conc 447 mg/dL Critically high 70-99 [facility] Comment on above: Performed By: #### C DP, BMP, BNP, TROPI, DIME, PT, PTT ####[address] [place] [address] (cont.) Normal [facility] Comment on above: Result Comment: Aver age GFR for 40-49 years old: 99 mL/min/1.73sq mChronic Kidney Disease: <60 mL/min/1.73sq mKidney failure: <15 mL/min/1.73sq meGFR calculated using average adult body mass. Additional eGFR calculator available at:http://www.Endorse.me.Roost/multiple_crcl_2012.htm Performed By: #### C DP, BMP, BNP, TROPI, DIME, PT, PTT ####[address] [place] [address] Anion gap 21 mmol/L High 9-17 [facility] Comment on above: Performed By: #### C DP, BMP, BNP, TROPI, DIME, PT, PTT ####[address] [place] [address] BUN/CRE Ratio 15 Normal 9-20 [facility] Comment on above: Performed By: #### C DP, BMP, BNP, TROPI, DIME, PT, PTT ####[address] [place] [address] Calcium 9.4 mg/dL Normal 8.6-10.4 [facility] Comment on above: Performed By: #### C DP, BMP, BNP, TROPI, DIME, PT, PTT ####[address] , [facility]83 Chloride 94 mmol/L Low 98-107 [facility] Comment on above: Performed By: #### C DP, BMP, BNP, TROPI, DIME, PT, PTT ####[address] , [place] [address] CO2 20 mmol/L Normal 20-31 [facility] Comment on above: Performed By: #### C DP, BMP, BNP, TROPI, DIME, PT, PTT ####[address] , [place] [address] Creatinine 0.62 mg/dL Normal 0.50-0.90 [facility] Comment on above: Performed By: #### C DP, BMP, BNP, TROPI, DIME, PT, PTT ####[address] , [facility]83 eGFR (non-black) mL/min/{1.73_m2} Normal >60 [facility] Comment on above: Performed By: #### C DP, BMP, BNP, TROPI, DIME, PT, PTT ####[address] , [facility]83 Potassium molar conc 3.5 mmol/L Low 3.7-5.3 [facility] Comment on above: Performed By: #### C DP, BMP, BNP, TROPI, DIME, PT, PTT ####[address] , [place] [address] Sodium 135 mmol/L Normal 135-144 [facility] Comment on above: Performed By: #### C DP, BMP, BNP, TROPI, DIME, PT, PTT ####[address] [place] [address] Staging: Normal [facility] Comment on above: Result Comment: Stag e 1: Some kidney damage normal GFRStage 2: Mild kidney damage GFR 60-89Stage 3: Moderate kidney damage GFR 30-59Stage 4: Severe kidney damage GFR 15-29Stage 5: Severe kidney damage GFR <15ESRD - chronic treatment by dialysis or transplantPerformed at [address] [place] [address] Performed By: #### C DP, BMP, BNP, TROPI, DIME, PT, PTT ####[address] [place] [address] Urea nitrogen 9 mg/dL Normal 6-20 [facility] Comment on above: Performed By: #### C DP, BMP, BNP, TROPI, DIME, PT, PTT ####[address] [place] [address] Beta Hydroxybutyrateon 09-01 Beta Hydroxybutyrate 0.74 mmol/L High 0.02-0.27 [facility] Comment on above: Result Comment: Perf ormed at [address] [place] [address] Performed By: #### C DP, BMP, BNP, TROPI, DIME, PT, PTT ####[address] [place] [address] CBCon 09-01-2017 Erythrocyte distribution width Auto Ratio (RBC) 12.6 % Normal 11.8-14.4 [facility] Comment on above: Performed By: #### C DP, BMP, BNP, TROPI, DIME, PT, PTT ####[address] [place] [address] Erythrocytes (RBC) 4.39 10*6/uL Normal 3.95-5.11 [facility] Comment on above: Performed By: #### C DP, BMP, BNP, TROPI, DIME, PT, PTT ####[address] [place] [address] Erythrocytes (RBC) 0.0 per 100 WBC Normal 0.[address] [facility] Comment on above: Result Comment: Perf ormed at [address], [place] [id number] [phone] Performed By: #### C DP, BMP, BNP, TROPI, DIME, PT, PTT ####[address] [place] [address] Hematocrit (HCT) 39.2 % Normal 36.3-47.1 [facility] Comment on above: Performed By: #### C DP, BMP, BNP, TROPI, DIME, PT, PTT ####[address] [place] [address] Hemoglobin mass conc (Bld) 13.7 g/dL Normal 11.9-15.1 [facility] Comment on above: Performed By: #### C DP, BMP, BNP, TROPI, DIME, PT, PTT ####[address] [place] [address] MCH 31.2 pg Normal 25.2-33.5 [facility] Comment on above: Performed By: #### C DP, BMP, BNP, TROPI, DIME, PT, PTT ####[address] [place] [address] MCHC mass conc (RBC) 34.9 g/dL High 28.4-34.8 [facility] Comment on above: Performed By: #### C DP, BMP, BNP, TROPI, DIME, PT, PTT ####[address] [place] [address] MCV 89.3 fL Normal 82.6-102.9 [facility] Comment on above: Performed By: #### C DP, BMP, BNP, TROPI, DIME, PT, PTT ####[address] [place] [address] Platelet mean volume (PMV) 9.3 fL Normal 8.1-13.5 [facility] Comment on above: Performed By: #### C DP, BMP, BNP, TROPI, DIME, PT, PTT ####[address] [place] [address] Platelets 317 10*3/uL Normal 138-453 [facility] Comment on above: Performed By: #### C DP, BMP, BNP, TROPI, DIME, PT, PTT ####[address] [place] [address] WBC (Leukocytes) 9.0 10*3/uL Normal 3.5-11.3 [facility] Comment on above: Performed By: #### C DP, BMP, BNP, TROPI, DIME, PT, PTT ####[address] [place] [address] D-Dimer Teston 09-01-2017 D-Dimer Test 0.23 mg/L FEU Normal 0.19-0.50 [facility] Comment on above: Result Comment: Elev ated levels of D dimer can be seen in any state of coagulation activation including DVT, PE, arterial thrombosis, DIC, inflamatory disease, trauma, malignancy, sepsis, infection, hematoma, liver disease, post surgical state, , atherosclerosis, old age.When combined with a low clinical probability, a D dimer value of <0.50 mg/L is considered negative for DVT and PE (negative predictive value of 98%).Performed at [address] [place] [id number] (296) Performed By: #### C DP, BMP, BNP, TROPI, DIME, PT, PTT ####[address] [place] [address] ED Provider Noteon 8 HIM IP Note OR Data Entry Operator Normal [facility] Lithiumon 09-01-2017 [place] 0.8 mmol/L Normal 0.6-1.2 [facility] Comment on above: Result Comment: Perf ormed at [address] [place] [address] Performed By: #### C DP, BMP, BNP, TROPI, DIME, PT, PTT ####[address] , [facility]83 Date last dose, NOT REPORTED Normal [facility] Comment on above: Performed By: #### C DP, BMP, BNP, TROPI, DIME, PT, PTT ####[address] [place] [address] Dose amount, NOT REPORTED Normal [facility] Comment on above: Performed By: #### C DP, BMP, BNP, TROPI, DIME, PT, PTT ####[address] [place] [address] Time last dose, NOT REPORTED Normal [facility] Comment on above: Performed By: #### C DP, BMP, BNP, TROPI, DIME, PT, PTT ####[address] [place] [address] Magnesiumon 09-01-2017 Magnesium 1.5 mg/dL Low 1.6-2.6 [facility] Comment on above: Result Comment: Perf ormed at [address] [place] [address] Performed By: #### C DP, BMP, BNP, TROPI, DIME, PT, PTT ####[address] [place] [address] Troponinon 09-01-2017 Troponin I.cardiac mass conc Normal [facility] Comment on above: Result Comment: Refe rence Range: <0.03 Within reference range. 0.03-0.09 Possible myocardial damage.Repeat at appropriate intervals to rule out chronic elevation. >= 0.10 Indicative of myocardial damage.Patients with high levels of Biotin oral intake (i.e >5mg/day) may have falsely decreased Troponin T levels. Samples collected within 8 hours of biotin intake may require additional information for diagnosis.Performed at [address] [place] [address] Performed By: #### C DP, BMP, BNP, TROPI, DIME, PT, PTT ####[address] [place] [address] Troponin T.cardiac mass conc ug/L Normal <0.03 [facility] Comment on above: Result Comment: Trop onin T results cannot be compared to Troponin-I results. Performed By: #### C DP, BMP, BNP, TROPI, DIME, PT, PTT ####[address] [place] [address] Urinalysis, Routineon 2017 Comment NOT REPORTED Normal [facility] Comment on above: Performed By: #### C DP, BMP, BNP, TROPI, DIME, PT, PTT ####[address] [place] [address] Urinalysis,Microon 8 Epithelial, Renal NOT REPORTED Normal 0 [facility] Comment on above: Performed By: #### C DP, BMP, BNP, TROPI, DIME, PT, PTT ####[address] [place] [address] Mucus Strands NOT REPORTED Normal NONE [facility] Comment on above: Performed By: #### C DP, BMP, BNP, TROPI, DIME, PT, PTT ####[address] [place] [address] Other Observations NOT REPORTED Normal NREQ [facility] Comment on above: Performed By: #### C DP, BMP, BNP, TROPI, DIME, PT, PTT ####[address] [place] [address] Trichomonas NOT REPORTED Normal NONE [facility] Comment on above: Performed By: #### C DP, BMP, BNP, TROPI, DIME, PT, PTT ####[address] [place] [address] Urine, amorphous sediment presence in sediment NOT REPORTED Normal [facility] Comment on above: Performed By: #### C DP, BMP, BNP, TROPI, DIME, PT, PTT ####[address] [place] [address] Urine, casts in sediment NOT REPORTED Normal [facility] Comment on above: Performed By: #### C DP, BMP, BNP, TROPI, DIME, PT, PTT ####[address] [place] [address] Urine, crystals in sediment NOT REPORTED Normal [facility] Comment on above: Performed By: #### C DP, BMP, BNP, TROPI, DIME, PT, PTT ####[address] [place] [address] Urine, yeast presence in sediment NOT REPORTED Normal [facility] Comment on above: Performed By: #### C DP, BMP, BNP, TROPI, DIME, PT, PTT ####[address] [place] [address] Venous Blood Gaseson 018 Bicarbonate (HCO3) 21.2 mmol/L Low 24.0-30.0 [facility] Comment on above: Performed By: #### C DP, BMP, BNP, TROPI, DIME, PT, PTT ####[address] [place] [address] Body Temp. 37.[address] [facility] Comment on above: Result Comment: Perf ormed at [address] [place] [address] Performed By: #### C DP, BMP, BNP, TROPI, DIME, PT, PTT ####[address] [place] [address] CO2 35.0 mmol/L Low 39-55 [facility] Comment on above: Performed By: #### C DP, BMP, BNP, TROPI, DIME, PT, PTT ####[address] [place] [address] Negative Base Excess 2.8 mmol/L High 0.0-2.0 [facility] Comment on above: Performed By: #### C DP, BMP, BNP, TROPI, DIME, PT, PTT ####[address] [place] [address] O2 saturation 67.0 % Normal 60.0-85.0 [facility] Comment on above: Performed By: #### C DP, BMP, BNP, TROPI, DIME, PT, PTT ####[address] [place] [address] Oxygen in arterial blood 34.6 mm[Hg] Normal 30.0-50.0 [facility] Comment on above: Performed By: #### C DP, BMP, BNP, TROPI, DIME, PT, PTT ####[address] [place] [address] pH of blood 7.400 [pH] Normal 7.32-7.42 [facility] Comment on above: Performed By: #### C DP, BMP, BNP, TROPI, DIME, PT, PTT ####[address] [place] [address] Chuckie Test NOT REPORTED Normal [facility] Comment on above: Performed By: #### C DP, BMP, BNP, TROPI, DIME, PT, PTT ####[address] [place] [address] CO2 NOT REPORTED Normal 39.0-55.0 [facility] Comment on above: Performed By: #### C DP, BMP, BNP, TROPI, DIME, PT, PTT ####[address] [place] [address] FIO2 NOT REPORTED Normal [facility] Comment on above: Performed By: #### C DP, BMP, BNP, TROPI, DIME, PT, PTT ####[address] [place] [address] Hemoglobin mass conc (Bld) NOT REPORTED Normal 95.0-98.0 [facility] Comment on above: Performed By: #### C DP, BMP, BNP, TROPI, DIME, PT, PTT ####[address] [place] [address] Mode NOT REPORTED Normal [facility] Comment on above: Performed By: #### C DP, BMP, BNP, TROPI, DIME, PT, PTT ####[address] [place] [address] Notification Time NOT REPORTED Normal [facility] Comment on above: Performed By: #### C DP, BMP, BNP, TROPI, DIME, PT, PTT ####[address] [place] [address] Notification: NOT REPORTED Normal [facility] Comment on above: Performed By: #### C DP, BMP, BNP, TROPI, DIME, PT, PTT ####[address] [place] [address] O2 Device/Flow/% NOT REPORTED Normal [facility] Comment on above: Performed By: #### C DP, BMP, BNP, TROPI, DIME, PT, PTT ####[address] [place] [address] PEEP/CPAP NOT REPORTED Normal [facility] Comment on above: Performed By: #### C DP, BMP, BNP, TROPI, DIME, PT, PTT ####[address] [place] [address] pH Adjst'd for Temp. NOT REPORTED Normal 7.320-7.[address] [facility] Comment on above: Performed By: #### C DP, BMP, BNP, TROPI, DIME, PT, PTT ####[address] [place] [address] pO2 Adj'd for Temp. NOT REPORTED Normal 30.0-50.0 [facility] Comment on above: Performed By: #### C DP, BMP, BNP, TROPI, DIME, PT, PTT ####[address] [place] [address] Positive Base Excess NOT REPORTED Normal 0.0-2.0 [facility] Comment on above: Performed By: #### C DP, BMP, BNP, TROPI, DIME, PT, PTT ####[address] [place] [address] PSV NOT REPORTED Normal [facility] Comment on above: Performed By: #### C DP, BMP, BNP, TROPI, DIME, PT, PTT ####[address] [place] [address] Pt. Position NOT REPORTED Normal [facility] Comment on above: Performed By: #### C DP, BMP, BNP, TROPI, DIME, PT, PTT ####[address] [place] [address] Respiratory rate NOT REPORTED Normal [facility] Comment on above: Performed By: #### C DP, BMP, BNP, TROPI, DIME, PT, PTT ####[address] [place] [address] Set Rate NOT REPORTED Normal [facility] Comment on above: Performed By: #### C DP, BMP, BNP, TROPI, DIME, PT, PTT ####[address] [place] [address] Site Drawn NOT REPORTED Normal [facility] Comment on above: Performed By: #### C DP, BMP, BNP, TROPI, DIME, PT, PTT ####[address] [place] [address] Text for Respiratory NOT REPORTED Normal [facility] Comment on above: Performed By: #### C DP, BMP, BNP, TROPI, DIME, PT, PTT ####[address] [place] [address] Total Hb NOT REPORTED Normal 12.0-16.0 [facility] Comment on above: Performed By: #### C DP, BMP, BNP, TROPI, DIME, PT, PTT ####[address] [place] [address] Total Rate NOT REPORTED Normal [facility] Comment on above: Performed By: #### C DP, BMP, BNP, TROPI, DIME, PT, PTT ####[address] [place] [address] VT NOT REPORTED Normal [facility] Comment on above: Performed By: #### C DP, BMP, BNP, TROPI, DIME, PT, PTT ####[address] [place] [address] XR CHEST (2 VW)on 09-01-2017 XR CHEST (2 VW) FINAL REPORTEXAM: XR CHEST (2 VW)HISTORY: shortness of breath TECHNIQUE: Two-view chest PRIORS: None.FINDINGS: Lung marquez are clear. No consolidation, pleural effusion, or pneumothorax. Cardio mediastinal silhouette is unremarkable. Chest port and pacer noted. IMPRESSION: Impression: No acute disease. Interpreted by:LUIS Dykesigned by:Ko Lua MD09/01/17inal result Normal 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 The patient is facingankle surgery in the near future. The patient is usually seen at [facility] cardiology practice. She states that she was cleared forsurgery by them however this visit was requested. The patient denies anychest pain or shortness of breath. She denies any palpitations, syncopalor near syncopal episodes. She did have low heart rates and multiplepassing out episodes in the past which led to the pacemaker being placedin the first place. She denies any lower extremity swelling. She deniesany orthopnea or paroxysmal nocturnal dyspnea. The patient has done wellsince her pacemaker was replaced relatively recently. She is scheduledfor a follow-up checkup in the near future in [place]. The patient hasnot had any problems with surgical procedures in the past.PAST MEDICAL HISTORYDiagnosis Date- Anxiety- Bipolar 1 disorder (HCC)- Bradycardia- Depression- DM (diabetes mellitus) (HCC)- HLD (hyperlipidemia)- HTN (hypertension)- Hypothyroid- PacemakerPAST SURGICAL HISTORYProcedure Laterality Date- HYSTERECTOMY- REMOVAL GALLBLADDERSocial HistorySubstance Use Topics- Smoking status: Former Smoker Packs/day: 1.00 Years: 24.00 Quit date: 04/16/2017- Smokeless tobacco: Never Used- Alcohol use NoFAMILY HISTORYProblem Relation Age of Onset- Seizures Mother- Cancer Mother Thyroid- Heart Father CABG x3- Diabetes Father- Stroke Father- Hypertension FatherALLERGIES:ALLERGIES Allergen Reactions- Adhesive Tape (Daiana* Itching- Codeine Rash- Darvocet A500 [Prop* GI Upset- Dye Contraindication-Medical Surgical- Latex Rash- Toradol [Ketorolac * Rash- Tramadol RashMEDICATIONS:aspirin 81 mg chewable tablet Take 81 mg by mouth.atorvastatin (LIPITOR) 20 mg tablet Take 20 mg by mouth once daily.levETIRAcetam (KEPPRA) 1,000 mg tablet Take 1,000 mg by mouth.lithium carbonate (ESKALITH) 300 mg capsule 300mg in AM and 600mg QHSLYRICA 100 mg capsule Take by mouth once daily.metFORMIN (GLUCOPHAGE) 1,000 mg tablet Take 1,000 mg by mouth.omeprazole (PRILOSEC) 20 mg capsule Take 40 mg by mouth.QUEtiapine XR (SEROQUEL XR) 50 mg Tb24 Take 50 mg by mouth.insulin lispro (HUMALOG) 100 unit/mL injection - dose 12 units per meal,can do 6 units if having a smaller meal - also dose before meals and atbedtime for BG >150: 151-200 = 2 units 201-250 = 4units 251-300 = 6 units 301-350 = 8 -470 = 10 unitsinsulin lispro (HUMALOG) 100 unit/mL injection by SUBDERMAL route.insulin glargine (LANTUS) 100 unit/mL injection by SUBDERMAL route.insulin glargine (LANTUS SOLOSTAR, BASAGLAR) 100 unit/mL (3 mL) inpn 48Units by SUBDERMAL route.metoprolol tartrate, short acting, (LOPRESSOR) 25 mg tablet Take 25 mg bymouth.lisinopril (ZESTRIL, PRINIVIL) 5 mg tablet Take 5 mg by mouth.nortriptyline (PAMELOR) 25 mg capsule Take 25 mg by mouth daily atbedtime.rOPINIRole (REQUIP) 2 mg tablet Take 2 mg by mouth daily at bedtime.zonisamide (ZONEGRAN) 100 mg capsule Take by mouth once daily.REVIEW OF SYSTEMS:A complete review of systems was obtained and is remarkable for that notedabove. The remaining systems are unremarkable.I personally interviewed, confirmed and edited the above information ifobtained by others.PHYSICAL EXAMINATION:BP 134/88 Pulse 96 Resp 18 Ht 157.5 cm (5' 2 ) Wt 88.9 kg (196 lb) SpO2 96% BMI 35.85 kg/e4Exlaafp: Well appearing, in no acute distress.Eyes: Conjunctiva normal, sclera normalNeck: No jugular venous distention, no palpable thyromegaly.Heart: Regular rhythm, S1, S2 normal, no S3, no S4. No murmur. No carotidbruits.Respiratory : Clear to auscultation bilaterally. Good respiratory effort.GI: Soft, nontender, bowel sounds normal, no palpable hepatosplenomegalyExtremi ties: Normal pulses in distal lower extremities. Absent lowerextremity edemaNeuro: Alert, cooperative with no focal deficit.Psych: Pleasant and cooperative.Skin: No rashes or wounds.CARDIOVASCULAR MEDICINE TESTING:A 12-lead electrocardiogram obtained on 07/14/2017 reveals sinus rhythm at88 bpm. Is possible right atrial enlargement. There are no acute ST orT-wave changes present. There there is no evidence of previous ND.I have personally reviewed the above Cardiovascular Medicine Testing.IMPRESSION:1. Preop cardiovascular exam - ICD9: V72.81, ICD10: Z01.810 (primarydiagnosis), revised cardiac risk index was 0.9% risk of a perioperativecardiac event. The Berkowitz perioperative cardiac risk calculation was alsolow risk. The patient has a less than 2% chance of a major cardiaccomplication around the time of surgery. No further workup is necessary.2. Sinus bradycardia - ICD9: 427.89, ICD10: R00.1, status post permanentpacemaker implant after the patient had several syncopal episodes, nofurther syncopal episodes since pacemaker implant.3. S/P cardiac pacemaker procedure - ICD9: V45.01, ICD10: Z95.0, scheduledfor first checkup of recently changed generator at [facility].4. Controlled type 2 diabetes mellitus without complication, withlong-term current use of insulin (HCC) - ICD9: 250.00, V58.67, ICD10:E11.9, Z79.4, stable, care per primary care team.5. Essential hypertension controlled on current medications.6. Hyperlipidemia unspecified type, currently on atorvastatin.PLAN:The patient is at low risk for a perioperative cardiac event in regards toankle surgery.No further workup is necessary.Continue current medical regimen.Low-cholesterol, low-fat diet.Follow-up with her primary cardiology provider at [facility] aspreviously directed.A copy of this consultation note will be provided to the requestingphysician by way of shared medical record or to the requesting physicianvia U.S. Mail.This document was generated utilizing Jimmy Fairlyon dictation. I have reviewedand verified that the contents of the document are accurate with theexception of minor grammatical, spelling and punctuation errors.CONTACT INFORMATION:Thank you for allowing us to participate in the care of this very pleasantpatient. Please free to contact us if we can be of any furtherassistance.Ben De Jesus MD, FACCRobert and Pretty Prieto of Cardiovascular MedicineCommunity Regional Medical Centerrt and Vascular Institute[address], [place] [address]Yuvgdc: [phone] Normal [facility] XR Lumbar Spine 2-3 Views (S tandard)on 06-26-2017 XR Lumbar Spine 2-3 Views (Standard) No acute osseous abnormality. If symptoms persist, further evaluation with MRI would be recommended. [employer]/[facility] Workstation ID: [id number] Invalid Interpretation Code [facility] XR Lumbar Spine 2-3 Views (Standard) EXAMINATION: XR LUMBAR SPINE 2-3 VIEWS (STANDARD) HISTORY: ORDERING SYSTEM PROVIDED HISTORY: back pain, TECHNOLOGIST PROVIDED HISTORY: Reason for exam: Pt states she was at [place] eating and then upon leaving went to get into her van and lifted up her left leg to get into the van and felt severe pain in her mid lower back that is radiating down her left leg and she became short of breath when the pain hit. No resp distress upon arrival to the ED. Pt reports she has a hx of herniated discs in her back. Illness/Other Cancer History: u Surgery, RadiationHistory: pacemaker Encounter Type: Initial Additional signs and symptoms: no ORDERING SYSTEM PROVIDED DIAGNOSIS CODES: COMPARISON: Lumbar radiographs 01/30/2014. FINDINGS: There are 5 bjy-qgi-wshzspo lumbar-type vertebral bodies in anatomic alignment. Mineralization is within normal limits. No acute fracture or dislocation. The sacroiliac joint spaces are unremarkable. Surgical clips are seen within the right upper quadrant of the abdomen. Invalid Interpretation Code [employer] XR Lumbar Spine 2-3 Views (Standard) Interface, Rad In Pacs Powerscribe - 06/27/2017 12:48 AM EST EXAMINATION: XR LUMBAR SPINE 2-3 VIEWS (STANDARD) HISTORY: ORDERING SYSTEM PROVIDED HISTORY: back pain, TECHNOLOGIST PROVIDED HISTORY: Reason for exam: Pt states she was at [employer] eating and then upon leaving went to get into her van and lifted up her left leg to get into the van and felt severe pain in her mid lower back that is radiating down her left leg and she became short of breath when the pain hit. No resp distress upon arrival to the ED. Pt reports she has a hx of herniated discs in her back. Illness/Other Cancer History: u Surgery, RadiationHistory: pacemaker Encounter Type: Initial Additional signs and symptoms: no ORDERING SYSTEM PROVIDED DIAGNOSIS CODES: COMPARISON: Lumbar radiographs 01/30/2014. FINDINGS: There are 5 niq-orc-afczghi lumbar-type vertebral bodies in anatomic alignment. Mineralization is within normal limits. No acute fracture or dislocation. The sacroiliac joint spaces are unremarkable. Surgical clips are seen within the right upper quadrant of the abdomen. IMPRESSION: No acute osseous abnormality. If symptoms persist, further evaluation with MRI would be recommended. [facility] Workstation ID: [id number] Invalid Interpretation Code [employer] XR Thoracic Spine 3 Views (S tandard)on 06-26-2017 XR Thoracic Spine 3 Views (Standard) No acute bony abnormalities. [facility] [place]: [id number] Invalid Interpretation Code [employer] XR Thoracic Spine 3 Views (Standard) EXAMINATION: XR THORACIC SPINE 3 VIEWS (STANDARD) HISTORY: ORDERING SYSTEM PROVIDED HISTORY: back pain, TECHNOLOGIST PROVIDED HISTORY: Reason for exam: Pt states she was at [employer] eating and then upon leaving went to get into her van and lifted up her left leg to get into the van and felt severe pain in her mid lower back that is radiating down her left leg and she became short of breath when the pain hit. No resp distress upon arrival to the ED. Pt reports she has a hx of herniated discs in her back. Illness/Other Cancer History: u Surgery, RadiationHistory: pacemaker Encounter Type: Initial Additional signs and symptoms: no ORDERING SYSTEM PROVIDED DIAGNOSIS CODES: COMPARISON: None. FINDINGS: Four views of the thoracic spine. Vertebral body heights are maintained. Disc heights are maintained. There are no acute fractures or dislocations. Left-sided pacemaker and right-sided chest port are noted. Three views of the lumbar spine. Vertebral body and disc heights are maintained. There are no acute fractures or dislocations. Invalid Interpretation Code [facility] XR Thoracic Spine 3 Views (Standard) Interface, Rad In Pacs Powerscribe - 06/26/2017 9:04 PM EST EXAMINATION: XR THORACIC SPINE 3 VIEWS (STANDARD) HISTORY: ORDERING SYSTEM PROVIDED HISTORY: back pain, TECHNOLOGIST PROVIDED HISTORY: Reason for exam: Pt states she was at [employer] eating and then upon leaving went to get into her van and lifted up her left leg to get into the van and felt severe pain in her mid lower back that is radiating down her left leg and she became short of breath when the pain hit. No resp distress upon arrival to the ED. Pt reports she has a hx of herniated discs in her back. Illness/Other Cancer History: u Surgery, RadiationHistory: pacemaker Encounter Type: Initial Additional signs and symptoms: no ORDERING SYSTEM PROVIDED DIAGNOSIS CODES: COMPARISON: None. FINDINGS: Four views of the thoracic spine. Vertebral body heights are maintained. Disc heights are maintained. There are no acute fractures or dislocations. Left-sided pacemaker and right-sided chest port are noted. Three views of the lumbar spine. Vertebral body and disc heights are maintained. There are no acute fractures or dislocations. IMPRESSION: No acute bony abnormalities. [facility] [place] ID: [id number] Invalid Interpretation Code [facility] Cult,Urineon 02-17-2017 Cult,Urine Specimen Description .URINE Performed at [address] [place] [address] ([phone] Special Requests NOT REPORTEDCulture ESCHERICHIA COLI >[id number] CFU/ML Performed at [facility] [employer] [address] [place] [phone] ([phone] Report Status FINAL 02/17/2017SUSCEPTIBILITYO rganism ECMethod MICAmikacin NOT REPORTEDAmpicillin >=32 RESISTANTAmpicillin/Sulba ctam NOT REPORTEDAztreonam <=1 SUSCEPTIBLECefazolin <=4 SUSCEPTIBLE Cefazolin sensitivity results can be used to predict the effectiveness of oral cephalosporins (eg. Cephalexin) in uncomplicated Urinary Tract Infections due to E. coli, K. pneumoniae, and P. mirabilis Cefepime NOT REPORTEDCeftriaxone <=1 SUSCEPTIBLECiprofloxacin >=4 RESISTANTErtapenem NOT REPORTEDESBL NEGATIVEGentamicin <=1 SUSCEPTIBLEMeropenem NOT REPORTEDNitrofurantoin <=16 SUSCEPTIBLETigecycline NOT REPORTEDTobramycin <=1 SUSCEPTIBLETrimethoprim/S ulfa >=320 RESISTANTPiperacillin/Louis obactam <=4 SUSCEPTIBLE [facility] Comment on above: Performed By: #### C DP, BMP, BNP, TROPI, DIME, PT, PTT ####[address] [place] [address] APTTon 02-16-2017 aPTT 23.1 s Low 23.2-34.4 [facility] Comment on above: Result Comment: Perf ormed at [address] [place] [address] ([phone] Performed By: #### C DP, BMP, BNP, TROPI, DIME, PT, PTT ####[address] [place] [address] Basic Metabolic Profon 02-16 (cont.) [facility] Comment on above: Result Comment: Aver age GFR for 30-39 years old: 107 mL/min/1.73sq mChronic Kidney Disease: <60 mL/min/1.73sq mKidney failure: <15 mL/min/1.73sq meGFR calculated using average adult body mass. Additional eGFR calculator available at:http://www.Endorse.me.Roost/multiple_crcl_2012.htm Performed By: #### C DP, BMP, BNP, TROPI, DIME, PT, PTT ####[address] [place] [address] Anion gap 20 mmol/L High 9- [facility] Comment on above: Performed By: #### C DP, BMP, BNP, TROPI, DIME, PT, PTT ####[address] , [facility]83 BUN/CRE Ratio 11 Normal 9-20 [facility] Comment on above: Performed By: #### C DP, BMP, BNP, TROPI, DIME, PT, PTT ####[address] [place] [address] Calcium 9.7 mg/dL Normal 8.6-10.4 [facility] Comment on above: Performed By: #### C DP, BMP, BNP, TROPI, DIME, PT, PTT ####[address] , [facility]83 Chloride 94 mmol/L Low 98-107 [facility] Comment on above: Performed By: #### C DP, BMP, BNP, TROPI, DIME, PT, PTT ####[address] , [facility]83 CO2 20 mmol/L Normal 20-31 [facility] Comment on above: Performed By: #### C DP, BMP, BNP, TROPI, DIME, PT, PTT ####[address] [place] [address] Creatinine 0.71 mg/dL Normal 0.50-0.90 [facility] Comment on above: Performed By: #### C DP, BMP, BNP, TROPI, DIME, PT, PTT ####[address] , [facility]83 eGFR (non-black) mL/min/{1.73_m2} Normal >60 [facility] Comment on above: Performed By: #### C DP, BMP, BNP, TROPI, DIME, PT, PTT ####[address] , [facility]83 Glucose mass conc 396 mg/dL High 70-99 [facility] Comment on above: Performed By: #### C DP, BMP, BNP, TROPI, DIME, PT, PTT ####[address] , [place] [phone] Potassium molar conc 4.3 mmol/L Normal 3.7-5.3 [facility] Comment on above: Performed By: #### C DP, BMP, BNP, TROPI, DIME, PT, PTT ####[address] [phone] Sodium 134 mmol/L Low 135-144 [facility] Comment on above: Performed By: #### C DP, BMP, BNP, TROPI, DIME, PT, PTT ####[address] [place] [address] Staging: Normal [facility] Comment on above: Result Comment: Stag e 1: Some kidney damage normal GFRStage 2: Mild kidney damage GFR 60-89Stage 3: Moderate kidney damage GFR 30-59Stage 4: Severe kidney damage GFR 15-29Stage 5: Severe kidney damage GFR <15ESRD - chronic treatment by dialysis or transplantPerformed at [address] [place] [address] Performed By: #### C DP, BMP, BNP, TROPI, DIME, PT, PTT ####[address] , [place] [phone] Urea nitrogen 8 mg/dL Normal 6-20 [facility] Comment on above: Performed By: #### C DP, BMP, BNP, TROPI, DIME, PT, PTT ####[address] [place] [address] Brain Natri. Peptideon 02-[address] [facility] Comment on above: Result Comment: Pro- BNP Reference Range:Rule Out: <300Grey Zone: Age <50 300-450 Age 50-75 300-900 Age >75 300-1800Usually represents mild to moderate HF but other cardiopulmonary causes cannot be ruled out.Rule In: Age <50 >450 Age 50-75 >900 Age >75 >1800Performed at [address] [place], [facility]83 Performed By: #### C DP, BMP, BNP, TROPI, DIME, PT, PTT ####[address] , [facility]83 BNP 117 pg/mL Normal <300 [facility] Comment on above: Result Comment: Pro- BNP results cannot be compared to BNP results. Performed By: #### C DP, BMP, BNP, TROPI, DIME, PT, PTT ####[address] , [place] [address] CBC with Diffon 02-16-2017 Abs. Basophil 0.00 k/uL Normal 0.0-0.2 [facility] Comment on above: Result Comment: Perf ormed at [address] [place], [place] [address] Performed By: #### C DP, BMP, BNP, TROPI, DIME, PT, PTT ####[address] , [facility]83 Abs.Neutrophil (Seg) 8.70 k/uL High 1.8-7.7 [facility] Comment on above: Performed By: #### C DP, BMP, BNP, TROPI, DIME, PT, PTT ####[address] , [place] [address] Basophils/100 WBC Auto (Bld) 0 % Normal [facility] Comment on above: Performed By: #### C DP, BMP, BNP, TROPI, DIME, PT, PTT ####[address] , [place] [address] Eosinophils 0.10 10*3/uL Normal 0.0-0.4 [facility] Comment on above: Performed By: #### C DP, BMP, BNP, TROPI, DIME, PT, PTT ####[address] , [place] [address] Eosinophils/100 leukocytes 1 % Normal [facility] Comment on above: Performed By: #### C DP, BMP, BNP, TROPI, DIME, PT, PTT ####[address] , [place] [address] Erythrocyte distribution width Auto Ratio (RBC) 11.9 % Low 12.1-15.2 [facility] Comment on above: Performed By: #### C DP, BMP, BNP, TROPI, DIME, PT, PTT ####[address] , [place] [address] Erythrocytes (RBC) 5.01 10*6/uL Normal 4.0-5.2 [facility] Comment on above: Performed By: #### C DP, BMP, BNP, TROPI, DIME, PT, PTT ####[address] , [place] [address] Hematocrit (HCT) 45.2 % Normal 36-46 [facility] Comment on above: Performed By: #### C DP, BMP, BNP, TROPI, DIME, PT, PTT ####[address] , [facility]83 Hemoglobin mass conc (Bld) 15.5 g/dL Normal 12.0-16.0 [facility] Comment on above: Performed By: #### C DP, BMP, BNP, TROPI, DIME, PT, PTT ####[address] , [place] [facility]83 Lymphocytes 2.00 10*3/uL Normal 1.0-4.8 [facility] Comment on above: Performed By: #### C DP, BMP, BNP, TROPI, DIME, PT, PTT ####[address] , [place] [address] Lymphocytes/100 leukocytes 18 % Normal [facility] Comment on above: Performed By: #### C DP, BMP, BNP, TROPI, DIME, PT, PTT ####[address] , [place] [address] MCH 31.0 pg Normal 26-34 [facility] Comment on above: Performed By: #### C DP, BMP, BNP, TROPI, DIME, PT, PTT ####[address] , [place] [address] MCHC mass conc (RBC) 34.4 g/dL Normal 31-37 [facility] Comment on above: Performed By: #### C DP, BMP, BNP, TROPI, DIME, PT, PTT ####[address] , [place] [address] MCV 90.4 fL Normal 80-100 [facility] Comment on above: Performed By: #### C DP, BMP, BNP, TROPI, DIME, PT, PTT ####[address] , [place] [address] Monocytes 0.40 10*3/uL Normal 0.2-0.8 [facility] Comment on above: Performed By: #### C DP, BMP, BNP, TROPI, DIME, PT, PTT ####[address] , [place] [address] Monocytes/100 leukocytes 4 % Normal [facility] Comment on above: Performed By: #### C DP, BMP, BNP, TROPI, DIME, PT, PTT ####[address] , [place] [address] Neutrophil (Seg) 77 % Normal [facility] Comment on above: Performed By: #### C DP, BMP, BNP, TROPI, DIME, PT, PTT ####[address] , [place] [address] Platelet mean volume (PMV) 8.1 fL Normal 6.0-12.0 [facility] Comment on above: Performed By: #### C DP, BMP, BNP, TROPI, DIME, PT, PTT ####[address] [place] [address] Platelets 340 10*3/uL Normal 140-450 [facility] Comment on above: Performed By: #### C DP, BMP, BNP, TROPI, DIME, PT, PTT ####[address] [place] [address] WBC (Leukocytes) 11.2 10*3/uL High 3.5-11.0 [facility] Comment on above: Performed By: #### C DP, BMP, BNP, TROPI, DIME, PT, PTT ####[address] [place] [address] Auto Diff Performed NOT REPORTED Normal [facility] Comment on above: Performed By: #### C DP, BMP, BNP, TROPI, DIME, PT, PTT ####[address] [place] [address] Erythrocyte morphology NOT REPORTED Normal [facility] Comment on above: Performed By: #### C DP, BMP, BNP, TROPI, DIME, PT, PTT ####[address] [place] [address] Platelets NOT REPORTED Normal [facility] Comment on above: Performed By: #### C DP, BMP, BNP, TROPI, DIME, PT, PTT ####[address] [place] [address] WBC Morphology NOT REPORTED Normal [facility] Comment on above: Performed By: #### C DP, BMP, BNP, TROPI, DIME, PT, PTT ####[address] [place] [address] D-Dimer Teston 02-16-2017 D-Dimer Test 0.26 mg/L FEU Normal 0.19-0.50 [facility] Comment on above: Result Comment: Elev ated levels of D dimer can be seen in any state of coagulation activation including DVT, PE, arterial thrombosis, DIC, inflamatory disease, trauma, malignancy, sepsis, infection, hematoma, liver disease, post surgical state, , atherosclerosis, old age.When combined with a low clinical probability, a D dimer value of <0.50 mg/L is considered negative for DVT and PE (negative predictive value of 98%).Performed at [address] [place] [id number] [phone] Performed By: #### C DP, BMP, BNP, TROPI, DIME, PT, PTT ####[address] [place] [address] ED Noteon 02-16-2017 HIM IP Note OR Data Entry Operator Normal [facility] HIM IP Note OR Data Entry Operator Normal [facility] HIM IP Note OR Data Entry Operator Normal [facility] HIM IP Note OR Data Entry Operator Normal [facility] HIM IP Note OR Data Entry Operator Normal [facility] HIM IP Note OR Data Entry Operator Normal [facility] HIM IP Note OR Data Entry Operator Normal [facility] HIM IP Note OR Data Entry Operator Normal [facility] HIM IP Note OR Data Entry Operator Normal [facility] HIM IP Note OR Data Entry Operator Normal [facility] HIM IP Note OR Data Entry Operator Normal [facility] ED Provider Noteon 7 HIM IP Note OR Data Entry Operator Normal [facility] PTon 02-16-2017 INR Coag RelTime (PPP) 0.9 {INR} Normal 0.9-1.2 [facility] Comment on above: Result Comment: Perf ormed at [address] [place] [address] Performed By: #### C DP, BMP, BNP, TROPI, DIME, PT, PTT ####[address] [place] [address] Prothrombin time (PT) Coag time (PPP) 9.7 s Normal 9.7-12.2 [facility] Comment on above: Performed By: #### C DP, BMP, BNP, TROPI, DIME, PT, PTT ####[address] [place] [address] Troponinon 02-16-2017 Troponin I.cardiac mass conc Normal [facility] Comment on above: Result Comment: Refe rence Range: <0.03 Within reference range. 0.03-0.09 Possible myocardial damage.Repeat at appropriate intervals to rule out chronic elevation. >= 0.10 Indicative of myocardial damage.Performed at [address] [place] [address] Performed By: #### C DP, BMP, BNP, TROPI, DIME, PT, PTT ####[address] [place] [address] Troponin T.cardiac mass conc ug/L Normal <0.03 [facility] Comment on above: Result Comment: Trop onin T results cannot be compared to Troponin-I results. Performed By: #### C DP, BMP, BNP, TROPI, DIME, PT, PTT ####[address] [place] [address] Troponin I.cardiac mass conc Normal [facility] Comment on above: Result Comment: Refe rence Range: <0.03 Within reference range. 0.03-0.09 Possible myocardial damage.Repeat at appropriate intervals to rule out chronic elevation. >= 0.10 Indicative of myocardial damage.Performed at [address] [place] [address] Performed By: #### C DP, BMP, BNP, TROPI, DIME, PT, PTT ####[address] [place] [address] Troponin T.cardiac mass conc ug/L Normal <0.03 [facility] Comment on above: Result Comment: Trop onin T results cannot be compared to Troponin-I results. Performed By: #### C DP, BMP, BNP, TROPI, DIME, PT, PTT ####[address] [place] [address] UA w/Reflex Cultureon 2016 Acetaminophen mass conc 1+ Abnormal NEG [facility] Comment on above: Performed By: #### C DP, BMP, BNP, TROPI, DIME, PT, PTT ####[address] [place] [address] Bilirubin (direct) Negative Normal NEG [facility] Comment on above: Performed By: #### C DP, BMP, BNP, TROPI, DIME, PT, PTT ####[address] [place] [address] Hemoglobin mass conc (Bld) TRACE Abnormal NEG [facility] Comment on above: Performed By: #### C DP, BMP, BNP, TROPI, DIME, PT, PTT ####[address] [place] [address] Nitrite,Ur Positive Abnormal NEG [facility] Comment on above: Performed By: #### C DP, BMP, BNP, TROPI, DIME, PT, PTT ####[address] [place] [address] Turbidity SLIGHTLY CLOUDY Abnormal CLEAR [facility] Comment on above: Performed By: #### C DP, BMP, BNP, TROPI, DIME, PT, PTT ####[address] [place] [address] Urine, color YELLOW Normal YEL [facility] Comment on above: Performed By: #### C DP, BMP, BNP, TROPI, DIME, PT, PTT ####[address] [place] [address] Urine, glucose presence 3+ Abnormal NEG [facility] Comment on above: Performed By: #### C DP, BMP, BNP, TROPI, DIME, PT, PTT ####[address] [place] [address] Urine, leukocyte esterase presence TRACE Abnormal NEG [facility] Comment on above: Result Comment: Perf ormed at [address] [place] [address] Performed By: #### C DP, BMP, BNP, TROPI, DIME, PT, PTT ####[address] [place] [address] Urine, pH 7.0 [pH] Normal 5.0-9.0 [facility] Comment on above: Performed By: #### C DP, BMP, BNP, TROPI, DIME, PT, PTT ####[address] [place] [address] Urine, protein presence Negative Normal NEG [facility] Comment on above: Performed By: #### C DP, BMP, BNP, TROPI, DIME, PT, PTT ####[address] [place] [address] Urine, specific gravity 1.010 Normal 1.010-1.020 [facility] Comment on above: Performed By: #### C DP, BMP, BNP, TROPI, DIME, PT, PTT ####[address] [place] [address] Urobilinogen,Ur Normal Normal NORM [facility] Comment on above: Performed By: #### C DP, BMP, BNP, TROPI, DIME, PT, PTT ####[address] [place] [address] Comment NOT REPORTED Normal [facility] Comment on above: Performed By: #### C DP, BMP, BNP, TROPI, DIME, PT, PTT ####[address] [place] [address] Urinalysis,Microon 7 ----- Normal [facility] Comment on above: Performed By: #### C DP, BMP, BNP, TROPI, DIME, PT, PTT ####[address] [place] [address] Urine WBC's 10 TO 20 Normal 0-5 [facility] Comment on above: Performed By: #### C DP, BMP, BNP, TROPI, DIME, PT, PTT ####[address] [place] [address] Urine, bacteria in sediment 3+ Abnormal NONE [facility] Comment on above: Result Comment: Perf ormed at [address] [place] [address] Performed By: #### C DP, BMP, BNP, TROPI, DIME, PT, PTT ####[address] [place] [address] Urine, epithelial cells in sediment 2 TO 5 Normal 0-25 [facility] Comment on above: Performed By: #### C DP, BMP, BNP, TROPI, DIME, PT, PTT ####[address] [place] [address] Urine, erythrocytes 0 TO 2 Normal 0-2 [facility] Comment on above: Performed By: #### C DP, BMP, BNP, TROPI, DIME, PT, PTT ####[address] [place] [address] Epithelial, Renal NOT REPORTED Normal 0 [facility] Comment on above: Performed By: #### C DP, BMP, BNP, TROPI, DIME, PT, PTT ####[address] [place] [address] Mucus Strands NOT REPORTED Normal NONE [facility] Comment on above: Performed By: #### C DP, BMP, BNP, TROPI, DIME, PT, PTT ####[address] [place] [address] Other Observations NOT REPORTED [facility] above: Performed By: #### C DP, BMP, BNP, TROPI, DIME, PT, PTT ####[address] [place] [address] Trichomonas NOT REPORTED Normal NONE [facility] Comment on above: Performed By: #### C DP, BMP, BNP, TROPI, DIME, PT, PTT ####[address] [place] [address] Urine, amorphous sediment presence in sediment NOT REPORTED Normal [facility] Comment on above: Performed By: #### C DP, BMP, BNP, TROPI, DIME, PT, PTT ####[address] [place] [address] Urine, casts in sediment NOT REPORTED Normal [facility] Comment on above: Performed By: #### C DP, BMP, BNP, TROPI, DIME, PT, PTT ####[address] [place] [address] Urine, crystals in sediment NOT REPORTED Normal [facility] Comment on above: Performed By: #### C DP, BMP, BNP, TROPI, DIME, PT, PTT ####[address] [place] [address] Urine, yeast presence in sediment NOT REPORTED Normal [facility] Comment on above: Performed By: #### C DP, BMP, BNP, TROPI, DIME, PT, PTT ####[address] [place] [address] XR CHEST PORTABLEon 02-17-20 XR CHEST PORTABLE REPORT: Chest PA and lateralINDICATION: Chest painFINDINGS: The lungs are well expanded and clear bilaterally. No focal consolidation, pleural effusion or pneumothorax seen. Normal cardiac and mediastinal silhouettes. No free intraperitoneal air. Left-sided pacemaker in place. Right-sided Port-A-Cath in good position.Final report electronically signed by Stephany Villafana on 02/16/2017 10:40 AMIMPRESSION: Normal chestInterpreted by:LUIS Migueligned by:Stephany Villafana MD02/16/17Final result Normal [facility] Laboratory Studieson 017 Urine Drug Screen (T) Final [facility] Comment on above: ==== TOXASSURE COMP DRUG ANALYSIS,UR ==== Test Result Flag Units Drug Present Alcohol, Ethyl 0.118 g/dL Sources of ethyl alcohol include alcoholic beverages or as a fermentation product of glucose; glucose is present in this specimen. Interpret result with caution, as the presence of ethyl alcohol is likely due, at least in part, to fermentation of glucose. Alpha-hydroxyalprazolam 93 ng/mg creat Alpha-hydroxyalprazolam is an expected metabolite of alprazolam. Source of alprazolam is a scheduled prescription medication. Lorazepam 1149 ng/mg creat Source of lorazepam is a scheduled prescription medication. Levetiracetam PRESENT Zonisamide PRESENT Quetiapine PRESENT ==== Test Result Flag Units Ref Range Creatinine 59 mg/dL >=20 ==== Declared Medications: Medication list was not provided. ==== For clinical consultation, please call . ==== Urine Drug Screen Interpretation . [facility] Comment on above: See report. Scanned copy available in EMR. Performed at: [employer] [address] [place] [id number] [employer] Operator: Laura Damon MD, Phone: [phone] Vital Signs Date Time Vital Sign Value Performing Clinician Carol hansen 09-23-2024 10:55-0400 Diastolic blood pressure 84 mm[Hg] Jim Agustin DO Work Phone: [facility] 09-23-2024 10:55-0400 Heart rate 110 /min Jim Velez DO Work Phone: [facility] 09-23-2024 10:55-0400 SaO2% (BldA) [Mass fraction] 98 % Jim Velez DO Work Phone: [facility] 09-23-2024 10:55-0400 Systolic blood pressure 121 mm[Hg] Jim Agustin DUMONT Work Phone: [facility] 08-29-2024 13:49-0400 Body height 157.48 cm No Doctor Alejandro Baumann [facility] Work Phone: 08-29-2024 13:49-0400 Body mass index (BMI) [Ratio] 51.2 kg/m2 No [facility] Work Phone: 08-29-2024 13:49-0400 Body temperature 97.6 [degF] No Doctor Alejandro Baumann [facility] Work Phone: 08-29-2024 13:49-0400 Body weight 127.01 kg No Doctor Alejandro Baumann [facility] Work Phone: 08-29-2024 13:49-0400 Diastolic blood pressure 90 mm[Hg] No Doctor [facility] Work Phone: 08-29-2024 13:49-0400 Heart rate 94 /min No Doctor [facility] Work Phone: 08-29-2024 13:49-0400 Respiratory rate 16 /min No Doctor [facility] Work Phone: 08-29-2024 13:49-0400 SaO2% (BldA) [Mass fraction] 99 % No Doctor [facility] Work Phone: 08-29-2024 13:49-0400 Systolic blood pressure 193 mm[Hg] No Doctor [facility] Work Phone: 08-02-2024 15:13-0400 Diastolic blood pressure 83 mm[Hg] Stephany Walkerague PA-C Work Phone: [facility] 08-02-2024 15:13-0400 Systolic blood pressure 122 mm[Hg] Stephany McCague PA-C Work Phone: [facility] 08-02-2024 14:25-0400 Body height 157.5 cm Stephany McCague PA-C Work Phone: [facility] 08-02-2024 14:25-0400 Heart rate 88 /min Stephany Gita PA-C Work Phone: [facility] 08-02-2024 14:25-0400 SaO2% (BldA) [Mass fraction] 95 % Stephany McCague PA-C Work Phone: [facility] 07-15-2024 10:57-0500 Body height 157.5 cm Stephany McCague PA-C Work Phone: [facility] 07-15-2024 10:57-0500 Diastolic blood pressure 88 mm[Hg] Stephany McCague PA-C Work Phone: [facility] 07-15-2024 10:57-0500 Heart rate 87 /min Stephany Pelayo PA-C Work Phone: [facility] 07-15-2024 10:57-0500 SaO2% (BldA) [Mass fraction] 98 % Stephany Pelayo PA-C Work Phone: [facility] 07-15-2024 10:57-0500 Systolic blood pressure 116 mm[Hg] Stephany Pelayo PA-C Work Phone: [facility] 07-05-2024 08:26-0500 Body height 157.5 cm Soto Bxo DPM FACFA S Work Phone: [facility] 07-05-2024 08:26-0500 Body mass index (BMI) [Ratio] 42.62 kg/m2 Soto Box DPM FACFAS Work Phone: [facility] 07-05-2024 08:26-0500 Body weight 105.69 kg Soto Box DPM FACFA S Work Phone: [facility] 07-05-2024 08:26-0500 Diastolic blood pressure 75 mm[Hg] Soto Box DPM FACFAS Work Phone: [facility] 07-05-2024 08:26-0500 Heart rate 77 /min Soto Box DPM FACFA S Work Phone: [facility] 07-05-2024 08:26-0500 Systolic blood pressure 128 mm[Hg] Soto Box DPM FACFAS Work Phone: [facility] 05-13-2024 08:32-0500 Body height 157.5 cm Mihai Tonio [employer] SAL[employer]ERSON Work Phone: [facility] 05-13-2024 08:32-0500 Body mass index (BMI) [Ratio] 51.32 kg/m2 Mihai Tonio [employer] SALESPERSON Work Phone: [facility] 05-13-2024 08:32-0500 Body weight 127.28 kg Mihai Tonio [employer] SALESPERSON Work Phone: [facility] 05-13-2024 08:32-0500 Diastolic blood pressure 109 mm[Hg] Mihai Tonio [employer] SALESPERSON Work Phone: [facility] 05-13-2024 08:32-0500 Heart rate 90 /min Mihai Tonio [employer] SALESPERSON Work Phone: [facility] 05-13-2024 08:32-0500 Systolic blood pressure 173 mm[Hg] Mihai Tonio [employer] SALESPERSON Work Phone: [facility] 04-29-2024 13:41-0500 Respiratory rate 16 /min Ali Kamille DO Work Phone: [facility] 04-29-2024 11:37-0500 Body temperature 97.5 [degF] Ali Kamille DO Work Phone: [facility] 04-29-2024 11:37-0500 Diastolic blood pressure 73 mm[Hg] Ali Kamille DO Work Phone: [facility] 04-29-2024 11:37-0500 Heart rate 78 /min Ali Kamille DO Work Phone: [facility] 04-29-2024 11:37-0500 SaO2% (BldA) [Mass fraction] 98 % Ali Kamille DO Work Phone: [facility] 04-29-2024 11:37-0500 Systolic blood pressure 114 mm[Hg] Ali Kamille DO Work Phone: [facility] 04-29-2024 03:00-0500 Body mass index (BMI) [Ratio] 51.73 kg/m2 Ali Kamille DO Work Phone: [facility] 04-29-2024 03:00-0500 Body weight 128.3 kg Ali Kamille DO Work Phone: [facility] 04-27-2024 01:27-0500 Body height 157.5 cm Ali Kamille DO Work Phone: [facility] 04-04-2024 15:44-0500 Diastolic blood pressure 87 mm[Hg] Ruthy Dong MD Work Phone: [facility] 04-04-2024 15:44-0500 Heart rate 66 /min Ruthy Dong MD Work Phone: [facility] 04-04-2024 15:44-0500 Respiratory rate 18 /min Ruthy Dong MD Work Phone: [facility] 04-04-2024 15:44-0500 SaO2% (BldA) [Mass fraction] 94 % Ruthy Dong MD Work Phone: [facility] 04-04-2024 15:44-0500 Systolic blood pressure 149 mm[Hg] Ruthy Dong MD Work Phone: [facility] 04-04-2024 11:24-0500 Body temperature 97.81 [degF] Ruthy Dong MD Work Phone: [facility] 03-30-2024 04:29-0500 Body mass index (BMI) [Ratio] 49.84 kg/m2 Ruthy Dong MD Work Phone: [facility] 03-30-2024 04:29-0500 Body weight 123.6 kg Ruthy Dong MD Work Phone: [facility] 03-25-2024 01:58-0400 Body height 157.5 cm Ruthy Dong MD Work Phone: [facility] 03-22-2024 11:23-0400 Diastolic blood pressure 94 mm[Hg] Stephany Pelayo PA-C Work Phone: [facility] 03-22-2024 11:23-0400 Systolic blood pressure 142 mm[Hg] Stephany Pelayo PA-C Work Phone: [facility] 03-22-2024 10:41-0400 Body height 157.5 cm Stephany Pelayo PA-C Work Phone: [facility] 03-22-2024 10:41-0400 Heart rate 103 /min Stephany Pelayo PA-C Work Phone: [facility] 03-22-2024 10:41-0400 SaO2% (BldA) [Mass fraction] 98 % Stephany Pelayo PA-C Work Phone: [facility] 02-11-2024 11:41-0400 Diastolic blood pressure 126 mm[Hg] Stephany Walkermanuela PA-C Work Phone: [facility] 02-11-2024 11:41-0400 Systolic blood pressure 193 mm[Hg] Stephany Walkermanuela PA-C Work Phone: [facility] 02-11-2024 11:03-0400 Body height 157.5 cm Stephany Walkermanuela PA-C Work Phone: [facility] 02-11-2024 11:03-0400 Heart rate 89 /min Stephany Walkermanuela PA-C Work Phone: [facility] 02-11-2024 11:03-0400 SaO2% (BldA) [Mass fraction] 97 % Stephany Walkermanuela PA-C Work Phone: [facility] 02-02-2024 16:04-0400 Body mass index (BMI) [Ratio] 51.21 kg/m2 Jim Agustin DO Work Phone: [facility] 02-02-2024 16:04-0400 Body weight 127.01 kg Jim Velez DO Work Phone: [facility] 02-02-2024 16:04-0400 Diastolic blood pressure 108 mm[Hg] Jim Velez DO Work Phone: [facility] 02-02-2024 16:04-0400 Heart rate 96 /min Jim Velez DO Work Phone: [facility] 02-02-2024 16:04-0400 Respiratory rate 18 /min Jim Velez DO Work Phone: [facility] 02-02-2024 16:04-0400 SaO2% (BldA) [Mass fraction] 96 % Jim Velez DO Work Phone: [facility] 02-02-2024 16:04-0400 Systolic blood pressure 181 mm[Hg] Jim Velez DO Work Phone: [facility] 01-27-2024 13:36-0400 Body height 157.5 cm Rafaela Medrano CNP Work Phone: [facility] Comment on above: per pt 01-27-2024 13:36-0400 Body mass index (BMI) [Ratio] 51.03 kg/m2 Rafaela Medrano [employer]ERSON Work Phone: [facility] 01-27-2024 13:36-0400 Body weight 126.55 kg Rafaela Medrano [employer] SALESPERSON Work Phone: [facility] 01-27-2024 13:36-0400 Diastolic blood pressure 90 mm[Hg] Rafaela Medrano [employer] SALESPERSON Work Phone: [facility] 01-27-2024 13:36-0400 Heart rate 90 /min Rafaela Medrano [employer] SALESPERSON Work Phone: [facility] 01-27-2024 13:36-0400 SaO2% (BldA) [Mass fraction] 94 % Rafaela Medrano [employer] SALESPERSON Work Phone: [facility] 01-27-2024 13:36-0400 Systolic blood pressure 139 mm[Hg] Rafaela Medrano [employer] SALESPERSON Work Phone: [facility] 01-18-2024 08:56-0400 Respiratory rate 16 /min Harshad Rizzo MD Work Phone: [facility] 01-18-2024 08:18-0400 Body temperature 97.7 [degF] Harshad Rizzo MD Work Phone: [facility] 01-18-2024 08:18-0400 Diastolic blood pressure 78 mm[Hg] Harshad Rizzo MD Work Phone: [facility] 01-18-2024 08:18-0400 Heart rate 65 /min Harshad Rizzo MD Work Phone: [facility] 01-18-2024 08:18-0400 Systolic blood pressure 140 mm[Hg] Harshad Rizzo MD Work Phone: [facility] 01-18-2024 02:58-0400 Body mass index (BMI) [Ratio] 52.62 kg/m2 Harshad Rizzo MD Work Phone: [facility] 01-18-2024 02:58-0400 Body weight 130.5 kg Harshad Rizzo MD Work Phone: [facility] 01-18-2024 02:58-0400 SaO2% (BldA) [Mass fraction] 94 % Harshad Rizzo MD Work Phone: [facility] 01-12-2024 14:36-0400 Body height 157.5 cm Harshad Rizzo MD Work Phone: [facility] 01-12-2024 13:59-0400 Diastolic blood pressure 93 mm[Hg] Stephany Aaronague PA-C Work Phone: [facility] 01-12-2024 13:59-0400 Systolic blood pressure 139 mm[Hg] Stephany Pelayo PA-C Work Phone: [facility] 01-12-2024 13:38-0400 Body height 157.5 cm Stephany Pelayo PA-C Work Phone: [facility] 01-12-2024 13:38-0400 Heart rate 96 /min Stephany Gita PA-C Work Phone: [facility] 01-12-2024 13:38-0400 SaO2% (BldA) [Mass fraction] 95 % Stephany McCague PA-C Work Phone: [facility] 12-08-2023 13:53-0400 Body mass index (BMI) [Ratio] 47.55 kg/m2 Jim Velez DO Work Phone: [facility] 12-08-2023 13:53-0400 Body weight 117.94 kg Jim Velez DO Work Phone: [facility] 12-08-2023 13:53-0400 Diastolic blood pressure 113 mm[Hg] Jim Velez DO Work Phone: [facility] 12-08-2023 13:53-0400 Heart rate 91 /min Jim Velez DO Work Phone: [facility] 12-08-2023 13:53-0400 Respiratory rate 18 /min Jim Velez DO Work Phone: [facility] 12-08-2023 13:53-0400 SaO2% (BldA) [Mass fraction] 93 % Jim Velez DO Work Phone: [facility] 12-08-2023 13:53-0400 Systolic blood pressure 166 mm[Hg] Jim Velez DO Work Phone: [facility] 12-02-2023 13:53-0400 Body height 157.5 cm Sahara Sanchez MD Work Phone: [facility] 12-02-2023 13:53-0400 Body mass index (BMI) [Ratio] 49.93 kg/m2 Sahara Sanchez MD Work Phone: [facility] 12-02-2023 13:53-0400 Body weight 123.83 kg Sahara Sanchez MD Work Phone: [facility] 12-02-2023 13:53-0400 Diastolic blood pressure 92 mm[Hg] Sahara Sanchez MD Work Phone: [facility] 12-02-2023 13:53-0400 Heart rate 92 /min Sahara Sanchez MD Work Phone: [facility] 12-02-2023 13:53-0400 Respiratory rate 16 /min Sahara Sanchez MD Work Phone: [facility] 12-02-2023 13:53-0400 Systolic blood pressure 153 mm[Hg] Sahara Sanchez MD Work Phone: [facility] 12-01-2023 15:34-0400 Body height 157.5 cm Stephany Pelayo PA-C Work Phone: [facility] 12-01-2023 15:34-0400 Body temperature 98.01 [degF] Stephany RUBALCAVA-Isabell Work Phone: [facility] 12-01-2023 15:34-0400 Diastolic blood pressure 72 mm[Hg] Stephany Pelayo PA-C Work Phone: [facility] 12-01-2023 15:34-0400 Heart rate 106 /min Stephany McCmanuela PA-C Work Phone: [facility] 12-01-2023 15:34-0400 SaO2% (BldA) [Mass fraction] 98 % Stephany McCague PA-C Work Phone: [facility] 12-01-2023 15:34-0400 Systolic blood pressure 131 mm[Hg] Stephany McCmanuela PA-C Work Phone: [facility] 11-09-2023 15:47-0400 Diastolic blood pressure 99 mm[Hg] Anders London MD Work Phone: [facility] 11-09-2023 15:47-0400 Heart rate 90 /min Anders London MD Work Phone: [facility] 11-09-2023 15:47-0400 Systolic blood pressure 144 mm[Hg] Anders London MD Work Phone: [facility] 10-13-2023 11:49-0400 Diastolic blood pressure 109 mm[Hg] Stephany McCague PA-C Work Phone: [facility] 10-13-2023 11:49-0400 Systolic blood pressure 169 mm[Hg] Stephany McCague PA-C Work Phone: [facility] 10-13-2023 11:24-0400 Body temperature 97 [degF] Stephany McCague PA-C Work Phone: [facility] 10-13-2023 11:24-0400 Heart rate 93 /min Stephany McCague PA-C Work Phone: [facility] 10-13-2023 11:24-0400 SaO2% (BldA) [Mass fraction] 95 % Stephany McCague PA-C Work Phone: [facility] 10-07-2023 15:04-0400 Diastolic blood pressure 91 mm[Hg] Rosario Garcia MD Work Phone: [facility] 10-07-2023 15:04-0400 Heart rate 98 /min Rosario Garcia MD Work Phone: [facility] 10-07-2023 15:04-0400 SaO2% (BldA) [Mass fraction] 96 % Rosario Garcia MD Work Phone: [facility] 10-07-2023 15:04-0400 Systolic blood pressure 169 mm[Hg] Rosario Garcia MD Work Phone: [facility] 09-16-2023 13:07-0400 Diastolic blood pressure 100 mm[Hg] Virgen Campos MD Work Phone: [facility] 09-16-2023 13:07-0400 Heart rate 97 /min Virgen Campos MD Work Phone: [facility] 09-16-2023 13:07-0400 SaO2% (BldA) [Mass fraction] 97 % Virgen Campos MD Work Phone: [facility] 09-16-2023 13:07-0400 Systolic blood pressure 166 mm[Hg] Virgen Campos MD Work Phone: [facility] 09-03-2023 14:30-0400 Diastolic blood pressure 88 mm[Hg] Stephany Pelayo PA-C Work Phone: [facility] 09-03-2023 14:30-0400 Systolic blood pressure 138 mm[Hg] Stephany Pelayo PA-C Work Phone: [facility] 09-03-2023 13:43-0400 Body height 157.5 cm Stephany Pelayo PA-C Work Phone: [facility] 09-03-2023 13:43-0400 Body mass index (BMI) [Ratio] 50.66 kg/m2 Stephany Pelayo PA-C Work Phone: [facility] 09-03-2023 13:43-0400 Body temperature 97.7 [degF] Stephany Pelayo PA-C Work Phone: [facility] 09-03-2023 13:43-0400 Body weight 125.65 kg Stephany RUBALCAVA-C Work Phone: [facility] 09-03-2023 13:43-0400 Heart rate 91 /min Stephany RUBALCAVA-C Work Phone: [facility] 09-03-2023 13:43-0400 SaO2% (BldA) [Mass fraction] 98 % Stephany RUBALCAVA-Isabell Work Phone: [facility] 08-26-2023 19:31-0400 Diastolic blood pressure 93 mm[Hg] Floyd Mercado MD Work Phone: [facility] 08-26-2023 19:31-0400 Systolic blood pressure 154 mm[Hg] Floyd Mercado MD Work Phone: [facility] 08-26-2023 17:47-0400 Body temperature 97.39 [degF] Floyd Mercado MD Work Phone: [facility] 08-26-2023 17:47-0400 Heart rate 100 /min Floyd Mercado MD Work Phone: [facility] 08-26-2023 17:47-0400 Respiratory rate 15 /min Floyd Mercado MD Work Phone: [facility] 08-26-2023 17:47-0400 SaO2% (BldA) [Mass fraction] 99 % Floyd Mercado MD Work Phone: [facility] 08-03-2023 14:22-0400 Diastolic blood pressure 90 mm[Hg] Rosario Garcia MD Work Phone: [facility] 08-03-2023 14:22-0400 Heart rate 103 /min Rosario Garcia MD Work Phone: [facility] 08-03-2023 14:22-0400 Systolic blood pressure 140 mm[Hg] Rosario Garcia MD Work Phone: [facility] 06-22-2023 14:54-0500 Diastolic blood pressure 91 mm[Hg] Harris Bhat MD Work Phone: [facility] 06-22-2023 14:54-0500 Systolic blood pressure 162 mm[Hg] Harris Bhat MD Work Phone: [facility] 06-22-2023 14:40-0500 Body height 157.5 cm Harris Bhat MD Work Phone: [facility] 06-22-2023 14:40-0500 Body temperature 97.39 [degF] Harris Bhat MD Work Phone: [facility] 06-22-2023 14:40-0500 Heart rate 96 /min Harris Bhat MD Work Phone: [facility] 06-22-2023 14:40-0500 SaO2% (BldA) [Mass fraction] 98 % Harris Bhat MD Work Phone: [facility] 05-15-2023 15:09-0500 Body height 157.5 cm Stephany Pelayo PA-C Work Phone: [facility] 05-15-2023 15:09-0500 Body mass index (BMI) [Ratio] 47.55 kg/m2 Stephany Pelayo PA-C Work Phone: [facility] 05-15-2023 15:09-0500 Body temperature 97.3 [degF] Stephany Pelayo PA-C Work Phone: [facility] 05-15-2023 15:09-0500 Body weight 117.94 kg Stephany Pelayo PA-C Work Phone: [facility] 05-15-2023 15:09-0500 Diastolic blood pressure 78 mm[Hg] Stephany Pelayo PA-C Work Phone: [facility] 05-15-2023 15:09-0500 Heart rate 95 /min Stephany Pelayo PA-C Work Phone: [facility] 05-15-2023 15:09-0500 SaO2% (BldA) [Mass fraction] 97 % Stephany Pelayo PA-C Work Phone: [facility] 05-15-2023 15:09-0500 Systolic blood pressure 138 mm[Hg] Stephany Aaronague PA-C Work Phone: [facility] 05-06-2023 11:40-0500 Diastolic blood pressure 102 mm[Hg] Stephany Aaronague PA-C Work Phone: [facility] 05-06-2023 11:40-0500 Systolic blood pressure 182 mm[Hg] Stephany McCague PA-C Work Phone: [facility] 05-06-2023 11:31-0500 Body mass index (BMI) [Ratio] 47.76 kg/m2 Stephany Aaronague PA-C Work Phone: [facility] 05-06-2023 11:31-0500 Body temperature 96.3 [degF] Stephany Pelayo PA-C Work Phone: [facility] 05-06-2023 11:31-0500 Body weight 118.43 kg Stephany Pelayo PA-C Work Phone: [facility] 05-06-2023 11:31-0500 Heart rate 94 /min Stephany Pelayo PA-C Work Phone: [facility] 05-06-2023 11:31-0500 SaO2% (BldA) [Mass fraction] 98 % Stephany Walkerague PA-C Work Phone: [facility] 04-15-2023 15:45-0500 Body temperature 97.81 [degF] Ama Wilcox RN [facility] 04-15-2023 15:45-0500 Diastolic blood pressure 108 mm[Hg] Ama Wilcox RN [facility] 04-15-2023 15:45-0500 Heart rate 72 /min Ama Wilcox RN [facility] 04-15-2023 15:45-0500 Respiratory rate 18 /min Ama Wilcox RN [facility] 04-15-2023 15:45-0500 SaO2% (BldA) [Mass fraction] 96 % Ama Wilcox RN [facility] 04-15-2023 15:45-0500 Systolic blood pressure 136 mm[Hg] Ama Wilcox RN [facility] 04-15-2023 15:14-0500 Body temperature 97.5 [degF] Keyla Johnson [facility] 04-15-2023 15:14-0500 Diastolic blood pressure 108 mm[Hg] Keyla Johnson [facility] 04-15-2023 15:14-0500 Heart rate 87 /min Keyla Johnson [facility] 04-15-2023 15:14-0500 Respiratory rate 13 /min Keyla Johnson [facility] 04-15-2023 15:14-0500 SaO2% (BldA) [Mass fraction] 97 % Keyla Johnson [facility] 04-15-2023 15:14-0500 Systolic blood pressure 136 mm[Hg] Keyla Johnson [facility] 04-14-2023 16:30-0500 Body temperature 98.1 [degF] Cece Colin OT [facility] 04-14-2023 16:30-0500 Diastolic blood pressure 77 mm[Hg] Cece Colin OT [facility] 04-14-2023 16:30-0500 Heart rate 90 /min Cece Colin [facility] 04-14-2023 16:30-0500 Respiratory rate 17 /min Cece Colin [facility] 04-14-2023 16:30-0500 SaO2% (BldA) [Mass fraction] 98 % Cece Colin OT [facility] 04-14-2023 16:30-0500 Systolic blood pressure 148 mm[Hg] Cece Colin OT [facility] 04-14-2023 09:33-0500 Body temperature 98.4 [degF] Nikko Pratt [facility] 04-14-2023 09:33-0500 Diastolic blood pressure 99 mm[Hg] Nikko Pratt [facility] 04-14-2023 09:33-0500 Heart rate 77 /min Nikko Pratt [facility] 04-14-2023 09:33-0500 Respiratory rate 17 /min Nikko Pratt [facility] 04-14-2023 09:33-0500 SaO2% (BldA) [Mass fraction] 96 % Nikko Pratt [facility] 04-14-2023 09:33-0500 Systolic blood pressure 160 mm[Hg] Nikko Pratt [employer] [facility] 04-08-2023 12:04-0500 Body temperature 98.1 [degF] Lisa Padron PT [facility] 04-08-2023 12:04-0500 Diastolic blood pressure 74 mm[Hg] Lisa Padron PT [facility] 04-08-2023 12:04-0500 Heart rate 78 /min Lisa Padron PT [facility] 04-08-2023 12:04-0500 Respiratory rate 13 /min Lisa Padron PT [facility] 04-08-2023 12:04-0500 SaO2% (BldA) [Mass fraction] 99 % Lisa Padron PT [facility] 04-08-2023 12:04-0500 Systolic blood pressure 134 mm[Hg] Lisa Padron PT [facility] 04-08-2023 11:18-0500 Body temperature 98.71 [degF] Carlitos Carrera [facility] 04-08-2023 11:18-0500 Diastolic blood pressure 84 mm[Hg] Carlitos Carrera [facility] 04-08-2023 11:18-0500 Heart rate 76 /min Carlitos Carrera [facility] 04-08-2023 11:18-0500 Respiratory rate 16 /min Carlitos Carrera [facility] 04-08-2023 11:18-0500 SaO2% (BldA) [Mass fraction] 99 % Carlitos Carrera [facility] 04-08-2023 11:18-0500 Systolic blood pressure 126 mm[Hg] Carlitos Carrera [facility] 04-01-2023 00:00-0500 Body temperature 98.6 [degF] Kassidy Wick RN [facility] 04-01-2023 00:00-0500 Diastolic blood pressure 94 mm[Hg] Kassidy Wick RN [facility] 04-01-2023 00:00-0500 Heart rate 60 /min Kassidy Wick RN [facility] 04-01-2023 00:00-0500 Respiratory rate 16 /min Kassidy Wick RN [facility] 04-01-2023 00:00-0500 SaO2% (BldA) [Mass fraction] 100 % Kassidy Wick RN [facility] 04-01-2023 00:00-0500 Systolic blood pressure 142 mm[Hg] Kassidy Wick RN [facility] 03-30-2023 11:57-0500 Body temperature 97.81 [degF] Harshad Rizzo MD Work Phone: [facility] 03-30-2023 11:57-0500 Diastolic blood pressure 62 mm[Hg] Harshad Rizzo MD Work Phone: [facility] 03-30-2023 11:57-0500 Heart rate 65 /min Harshad Rizzo MD Work Phone: [facility] 03-30-2023 11:57-0500 SaO2% (BldA) [Mass fraction] 98 % Harshad Rizzo MD Work Phone: [facility] 03-30-2023 11:57-0500 Systolic blood pressure 97 mm[Hg] Harshad Rizzo MD Work Phone: [facility] 03-30-2023 07:23-0500 Respiratory rate 15 /min Harshad Rizzo MD Work Phone: [facility] 03-29-2023 14:38-0500 Body height 157.5 cm Harshad Rizzo MD Work Phone: [facility] 03-29-2023 14:38-0500 Body mass index (BMI) [Ratio] 46.81 kg/m2 Hrashad Rizzo MD Work Phone: [facility] 03-29-2023 14:38-0500 Body weight 116.1 kg Harshad Rizzo MD Work Phone: [facility] 02-20-2023 08:00-0400 Respiratory rate 16 /min Harshad Rizzo MD Work Phone: [facility] 02-20-2023 07:36-0400 Body temperature 97.9 [degF] Harshad Rizzo MD Work Phone: [facility] 02-20-2023 07:36-0400 Diastolic blood pressure 78 mm[Hg] Harshad Rizzo MD Work Phone: [facility] 02-20-2023 07:36-0400 Heart rate 89 /min Harshad Rizzo MD Work Phone: [facility] 02-20-2023 07:36-0400 SaO2% (BldA) [Mass fraction] 99 % Harshad Rizzo MD Work Phone: [facility] 02-20-2023 07:36-0400 Systolic blood pressure 111 mm[Hg] Harsahd Rizzo MD Work Phone: [facility] 02-20-2023 04:34-0400 Body mass index (BMI) [Ratio] 46.53 kg/m2 Harshad Rizzo MD Work Phone: [facility] 02-20-2023 04:34-0400 Body weight 115.4 kg Harshad Rizzo MD Work Phone: [facility] 02-18-2023 02:46-0400 Body height 157.5 cm Harshad Rizzo MD Work Phone: [facility] 02-09-2023 15:24-0400 Body height 157.5 cm Josué Mellis DO Work Phone: [facility] 02-09-2023 15:24-0400 Body mass index (BMI) [Ratio] 45.73 kg/m2 Josué Mellis DO Work Phone: [facility] 02-09-2023 15:24-0400 Body weight 113.4 kg Josué Mellis DO Work Phone: [facility] 10-07-2022 06:43-0400 Diastolic blood pressure 51 mm[Hg] Jocelyn Bowen MD Work Phone: [facility] 10-07-2022 06:43-0400 Heart rate 62 /min Jocelyn Bowen MD Work Phone: [facility] 10-07-2022 06:43-0400 SaO2% (BldA) [Mass fraction] 96 % Jocelyn Bowen MD Work Phone: [facility] 10-07-2022 06:43-0400 Systolic blood pressure 99 mm[Hg] Jocelyn Bowen MD Work Phone: [facility] 10-06-2022 19:48-0400 Body temperature 97.59 [degF] Jocelyn Bowen MD Work Phone: [facility] 10-06-2022 19:48-0400 Respiratory rate 17 /min Jocelyn Bowen MD Work Phone: [facility] 10-06-2022 18:21-0400 Diastolic blood pressure 118 mm[Hg] Preston Jonese [facility] 10-06-2022 18:21-0400 Heart rate 109 /min Preston Jonese [facility] 10-06-2022 18:21-0400 Mean blood pressure 129 mm[Hg] Preston Charli [facility] 10-06-2022 18:21-0400 Respiratory rate 18 /min Preston Jonese [facility] 10-06-2022 18:21-0400 SaO2% (BldA) [Mass fraction] 99 % Preston Charli [facility] 10-06-2022 18:21-0400 Systolic blood pressure 152 mm[Hg] Preston Charli [facility] 10-06-2022 17:00-0400 Diastolic blood pressure 113 mm[Hg] Preston Charli [facility] 10-06-2022 17:00-0400 Heart rate 106 /min Preston Charli [facility] 10-06-2022 17:00-0400 Mean blood pressure 126 mm[Hg] Preston Charli [facility] 10-06-2022 17:00-0400 Respiratory rate 16 /min Preston Charli [facility] 10-06-2022 17:00-0400 SaO2% (BldA) [Mass fraction] 97 % Preston Lugo [facility] 10-06-2022 16:00-0400 Diastolic blood pressure 100 mm[Hg] Preston Lugo [facility] 10-06-2022 16:00-0400 Mean blood pressure 109 mm[Hg] Preston Lugo [facility] 10-06-2022 16:00-0400 SaO2% (BldA) [Mass fraction] 100 % Preston Lugo [facility] 10-06-2022 16:00-0400 Systolic blood pressure 126 mm[Hg] Preston Lugo [facility] 10-06-2022 14:26-0400 Body temperature 98.24 [degF] Preston Lugo [facility] 10-06-2022 14:26-0400 Heart rate 112 /min Preston Lugo [facility] 09-15-2022 15:00-0400 Hourly Rounding Pepe Kinza [facility] 09-15-2022 15:00-0400 Promise to Return Pepe Kinza [facility] 09-15-2022 14:00-0400 Hourly Rounding Pepe Kinza [facility] 09-15-2022 14:00-0400 Promise to Return Pepe Kinza [facility] 09-15-2022 13:00-0400 Hourly Rounding Pepe Kinza [facility] 09-15-2022 13:00-0400 Promise to Return Pepe Kinza [facility] 09-15-2022 12:00-0400 Blood Pressure Location Pepe Kinza [facility] 09-15-2022 12:00-0400 Body temperature 98.06 [degF] Pepe Kinza [facility] 09-15-2022 12:00-0400 Diastolic blood pressure 80 mm[Hg] Pepe Kinza [facility] 09-15-2022 12:00-0400 Heart rate 59 /min Pepe Kinza [facility] 09-15-2022 12:00-0400 Mean blood pressure 94 mm[Hg] Pepe Kinza [facility] 09-15-2022 12:00-0400 Respiratory rate 16 /min Pepe Kinza [facility] 09-15-2022 12:00-0400 SaO2% (BldA) [Mass fraction] 96 % Pepe Kinza [facility] 09-15-2022 12:00-0400 Systolic blood pressure 122 mm[Hg] Pepe Kinza [facility] 09-15-2022 08:35-0400 Diastolic blood pressure 81 mm[Hg] Pepe Kinza [facility] 09-15-2022 08:35-0400 Heart rate 72 /min Pepe Kinza [facility] 09-15-2022 08:35-0400 Systolic blood pressure 170 mm[Hg] Pepe Kinza [facility] 09-15-2022 08:00-0400 Heart rate 68 /min Pepe Kinza [facility] 09-15-2022 08:00-0400 Mean blood pressure 111 mm[Hg] Pepe Kinza [facility] 09-15-2022 08:00-0400 SaO2% (BldA) [Mass fraction] 94 % Pepe Kinza [facility] 09-15-2022 01:00-0400 Body temperature 97.88 [degF] Pepe Kinza [facility] 09-15-2022 01:00-0400 Heart rate 61 /min Pepe Kinza [facility] 09-15-2022 01:00-0400 SaO2% (BldA) [Mass fraction] 96 % Pepe Kinza [facility] 09-14-2022 16:00-0400 Blood Pressure Location Pepe Kinza [facility] 09-14-2022 16:00-0400 Heart rate 94 /min Pepe Kinza [facility] 09-14-2022 16:00-0400 Mean blood pressure 135 mm[Hg] Pepe Kinza [facility] 09-14-2022 12:00-0400 Heart rate 106 /min Pepe Kinza [facility] 09-14-2022 07:00-0400 Heart rate 90 /min Pepe Kinza [facility] 09-13-2022 23:58-0400 Heart rate 91 /min Pepe Kinza [facility] 09-13-2022 21:01-0400 Heart rate 92 /min Pepe Kinza [facility] 09-13-2022 16:08-0400 gluc 132 mg/dL Pepe Kinza [facility] 09-13-2022 12:30-0400 gluc 85 mg/dL Pepe Kinza [facility] 04-22-2023 07:21-0400 gluc 122 mg/dL Pepe Clearyer [facility] 09-12-2022 19:20-0400 Mean blood pressure 114 mm[Hg] Pepe Clearyer [facility] 09-12-2022 16:45-0400 Respiratory rate 18 /min Pepe Echols [facility] 09-12-2022 07:12-0400 Body height 157.48 cm INFORMATION ASSURANCE ANALYST-C Kip Soviak Work Phone: [facility] 09-12-2022 07:12-0400 Body temperature 98 [degF] INFORMATION ASSURANCE ANALYST-C Kip Soviak Work Phone: [facility] 09-12-2022 07:12-0400 Body weight 113.39 kg INFORMATION ASSURANCE ANALYST-C Kip Soviak Work Phone: [facility] 09-12-2022 07:12-0400 Diastolic blood pressure 98 mm[Hg] INFORMATION ASSURANCE ANALYST-C Kip Soviak Work Phone: [facility] 09-12-2022 07:12-0400 Heart rate 98 /min INFORMATION ASSURANCE ANALYST-C Kip Soviak Work Phone: [facility] 09-12-2022 07:12-0400 Respiratory rate 16 /min INFORMATION ASSURANCE ANALYST-C Kip Soviak Work Phone: [facility] 09-12-2022 07:12-0400 SaO2% (BldA) [Mass fraction] 97 % INFORMATION ASSURANCE ANALYST-C Kip Soviak Work Phone: [facility] 09-12-2022 07:12-0400 Systolic blood pressure 144 mm[Hg] INFORMATION ASSURANCE ANALYST-C Kip Soviak Work Phone: [facility] 08-22-2022 14:55-0400 Body temperature 98.2 [degF] INFORMATION ASSURANCE ANALYST-C Kip Soviak Work Phone: [facility] 08-22-2022 14:55-0400 Diastolic blood pressure 90 mm[Hg] INFORMATION ASSURANCE ANALYST-C Kip Soviak Work Phone: [facility] 08-22-2022 14:55-0400 Heart rate 77 /min INFORMATION ASSURANCE ANALYST-C Kip Soviak Work Phone: [facility] 08-22-2022 14:55-0400 Respiratory rate 20 /min INFORMATION ASSURANCE ANALYST-C Kip Soviak Work Phone: [facility] 08-22-2022 14:55-0400 SaO2% (BldA) [Mass fraction] 96 % INFORMATION ASSURANCE ANALYST-C Kip Soviak Work Phone: [facility] 08-22-2022 14:55-0400 Systolic blood pressure 144 mm[Hg] INFORMATION ASSURANCE ANALYST-C Kip Soviak Work Phone: [facility] 08-22-2022 06:00-0400 Body weight 118 kg INFORMATION ASSURANCE ANALYST-C Kip Soviak Work Phone: [facility] 08-20-2022 16:45-0400 Body height 157.48 cm INFORMATION ASSURANCE ANALYST-C Kip Soviak Work Phone: [facility] 08-20-2022 02:34-0400 Diastolic blood pressure 96 mm[Hg] INFORMATION ASSURANCE ANALYST-C Kip Soviak Work Phone: [facility] 08-20-2022 02:34-0400 Heart rate 72 /min INFORMATION ASSURANCE ANALYST-C Kip Soviak Work Phone: [facility] 08-20-2022 02:34-0400 Respiratory rate 18 /min INFORMATION ASSURANCE ANALYST-C Kip Soviak Work Phone: [facility] 08-20-2022 02:34-0400 SaO2% (BldA) [Mass fraction] 100 % INFORMATION ASSURANCE ANALYST-C Kip Soviak Work Phone: [facility] 08-20-2022 02:34-0400 Systolic blood pressure 194 mm[Hg] INFORMATION ASSURANCE ANALYST-C Kip Soviak Work Phone: [facility] 08-19-2022 21:42-0400 Body height 157.48 cm INFORMATION ASSURANCE ANALYST-C Laurent Sorandyak Work Phone: [facility] 08-19-2022 21:42-0400 Body temperature 97.6 [degF] INFORMATION ASSURANCE ANALYST-C Laurent Sorandyak Work Phone: [facility] 08-19-2022 21:42-0400 Body weight 114.1 kg INFORMATION ASSURANCE ANALYST-C Laurent Sorandyak Work Phone: [facility] 08-19-2022 20:27-0400 Diastolic blood pressure 136 mm[Hg] Santos Agustin [facility] 08-19-2022 20:27-0400 Heart rate 104 /min Santos Velez [facility] 08-19-2022 20:27-0400 Mean blood pressure 154 mm[Hg] Santos Agustin [facility] 08-19-2022 20:27-0400 Respiratory rate 23 /min Santos Agustin [facility] 08-19-2022 20:27-0400 SaO2% (BldA) [Mass fraction] 97 % Santos Velez [facility] 08-19-2022 20:27-0400 Systolic blood pressure 189 mm[Hg] Santos Agustin [facility] 08-19-2022 18:00-0400 Diastolic blood pressure 98 mm[Hg] Santos Agustin [facility] 08-19-2022 18:00-0400 Respiratory rate 18 /min Santos Agustin [facility] 08-19-2022 18:00-0400 Systolic blood pressure 164 mm[Hg] Santos Agustin [facility] 08-19-2022 17:04-0400 Body temperature 97.7 [degF] Santos Velez [facility] 08-19-2022 17:04-0400 Diastolic blood pressure 124 mm[Hg] Santos Velez [facility] 08-19-2022 17:04-0400 Heart rate 108 /min Santos Velez [facility] 08-19-2022 17:04-0400 Respiratory rate 16 /min Santos Velez [facility] 08-19-2022 17:04-0400 SaO2% (BldA) [Mass fraction] 98 % Santos Velez [facility] 08-19-2022 17:04-0400 Systolic blood pressure 183 mm[Hg] Santos Velez [facility] 06-02-2022 20:00-0500 Diastolic blood pressure 88 mm[Hg] [facility] 06-02-2022 20:00-0500 Heart rate 92 /min [facility] 06-02-2022 20:00-0500 Mean blood pressure 109 mm[Hg] [facility] 06-02-2022 20:00-0500 Respiratory rate 17 /min [facility] 06-02-2022 20:00-0500 SaO2% (BldA) [Mass fraction] 100 % [facility] 06-02-2022 20:00-0500 Systolic blood pressure 150 mm[Hg] [facility] 06-02-2022 19:00-0500 Diastolic blood pressure 95 mm[Hg] [facility] 06-02-2022 19:00-0500 Heart rate 97 /min [facility] 06-02-2022 19:00-0500 Mean blood pressure 115 mm[Hg] [facility] 06-02-2022 19:00-0500 SaO2% (BldA) [Mass fraction] 99 % [facility] 06-02-2022 19:00-0500 Systolic blood pressure 154 mm[Hg] [facility] 06-02-2022 18:00-0500 Diastolic blood pressure 94 mm[Hg] [facility] 06-02-2022 18:00-0500 Heart rate 96 /min [facility] 06-02-2022 18:00-0500 Mean blood pressure 122 mm[Hg] [facility] 06-02-2022 18:00-0500 SaO2% (BldA) [Mass fraction] 98 % [facility] 06-02-2022 18:00-0500 Systolic blood pressure 178 mm[Hg] [facility] 06-02-2022 15:50-0500 Body temperature 97.7 [degF] [facility] 06-02-2022 15:50-0500 Heart rate 100 /min [facility] 06-02-2022 15:50-0500 Respiratory rate 18 /min [facility] 05-15-2022 16:18-0500 Body temperature 98.24 [degF] Santos Velez [facility] 05-15-2022 16:18-0500 Diastolic blood pressure 85 mm[Hg] Snatos Velez [facility] 05-15-2022 16:18-0500 Heart rate 99 /min Santos Velez [facility] 05-15-2022 16:18-0500 Respiratory rate 18 /min Santos Velez [facility] 05-15-2022 16:18-0500 SaO2% (BldA) [Mass fraction] 97 % Santos Velez [facility] 05-15-2022 16:18-0500 Systolic blood pressure 135 mm[Hg] Santos Velez [facility] 04-09-2022 10:00-0500 Hourly Rounding Ashutosh SAILAJA [facility] 04-09-2022 10:00-0500 Promise to Return Ashutosh SAILAJA [facility] 04-09-2022 09:00-0500 Hourly Rounding Ashutosh SAILAJA [facility] 04-09-2022 09:00-0500 Promise to Return Ashutosh SAILAJA [facility] 04-09-2022 08:51-0500 Diastolic blood pressure 64 mm[Hg] Ashutosh SAILAJA [facility] 04-09-2022 08:51-0500 Systolic blood pressure 91 mm[Hg] Ashutosh SAILAJA [facility] 04-09-2022 08:19-0500 Heart rate 63 /min Ashutosh SAILAJA [facility] 04-09-2022 08:19-0500 Respiratory rate 18 /min Ashutosh SAILAJA [facility] 04-09-2022 08:14-0500 Heart rate 61 /min Ashutosh SAILAJA [facility] 04-09-2022 08:14-0500 Respiratory rate 18 /min Ashutosh SAILAJA [facility] 04-09-2022 08:03-0500 Blood Pressure Location Sahutosh SAILAJA [facility] 04-09-2022 08:03-0500 Body temperature 97.52 [degF] Ashutosh MORELOSSLIN [facility] 04-09-2022 08:03-0500 BP/Pulse Patient Position Ashutosh MORELOSSLIN [facility] 04-09-2022 08:03-0500 Diastolic blood pressure 64 mm[Hg] Ashutoshnickie MORELOSSLIN [facility] 04-09-2022 08:03-0500 Heart rate 62 /min Ashutoshnickie MORELOSSLIN [facility] 04-09-2022 08:03-0500 Mean blood pressure 73 mm[Hg] Ashutoshnickie MORELOSSLIN [facility] 04-09-2022 08:03-0500 Respiratory rate 18 /min Ashutoshnickie MORELOSSLIN [facility] 04-09-2022 08:03-0500 SaO2% (BldA) [Mass fraction] 96 % Ashutoshnickie MORELOSSLIN [facility] 04-09-2022 08:03-0500 Systolic blood pressure 91 mm[Hg] Ashutosh MORELOSSLIN [facility] 04-09-2022 08:00-0500 Hourly Rounding Ashutosh MORELOSSLIN [facility] 04-09-2022 08:00-0500 Promise to Return Ashutoshnickie MORELOSSLIN [facility] 04-09-2022 04:30-0500 Blood Pressure Location Ashutoshnickie MORELOSSLIN [facility] 04-09-2022 04:30-0500 Body temperature 96.8 [degF] Ashutosh MORELOSSLIN [facility] 04-09-2022 04:30-0500 BP/Pulse Patient Position Ashutoshnickie MORELOSSLIN [facility] 04-09-2022 04:30-0500 Diastolic blood pressure 76 mm[Hg] Ashutosh BENSONLIN [facility] 04-09-2022 04:30-0500 SaO2% (BldA) [Mass fraction] 95 % Ashutosh MENARD [facility] 04-09-2022 04:30-0500 Systolic blood pressure 109 mm[Hg] Ashutosh MENARD [facility] 04-08-2022 22:36-0500 Blood Pressure Location Ashutosh MENARD [facility] 04-08-2022 22:36-0500 Body temperature 97.16 [degF] Ashutosh MENARD [facility] 04-08-2022 22:36-0500 BP/Pulse Patient Position Ashutosh MENARD [facility] 04-08-2022 22:36-0500 Mean blood pressure 91 mm[Hg] Ashutosh MENARD [facility] 04-08-2022 22:36-0500 SaO2% (BldA) [Mass fraction] 97 % Ashutosh MENARD [facility] 04-08-2022 20:27-0500 Body temperature 97.7 [degF] Ashutosh MENARD [facility] 04-08-2022 20:27-0500 Mean blood pressure 97 mm[Hg] Ashutosh MORELOSSLIN [facility] 04-08-2022 16:55-0500 Mean blood pressure 66 mm[Hg] Ashutosh MORELOSSLIN [facility] 04-08-2022 12:18-0500 gluc 133 mg/dL Ashutosh SAILAJA [facility] 04-08-2022 11:39-0500 Body temperature 98.06 [degF] Ashutosh SAILAJA [facility] 04-08-2022 04:35-0500 Mean blood pressure 73 mm[Hg] Ashutosh SAILAJA [facility] 04-08-2022 04:00-0500 gluc 124 mg/dL Ashutosh SAILAJA [facility] 04-08-2022 01:00-0500 Mean blood pressure 70 mm[Hg] Ashutosh SAILAJA [facility] 04-07-2022 16:28-0500 gluc 383 mg/dL Ashutosh SAILAJA [facility] 04-07-2022 07:00-0500 Heart rate 80 /min Ashutosh SAILAJA [facility] 04-07-2022 03:54-0500 Heart rate 95 /min Ashutosh SAILAJA [facility] 04-07-2022 03:02-0500 Diastolic Blood Pressure Invasive 103 mm[Hg] Ashutosh SAILAJA [facility] 04-07-2022 03:02-0500 Heart rate 95 /min Ashutosh SAILAJA [facility] 04-07-2022 03:02-0500 Mean blood pressure 120 mm[Hg] Ashutosh SAILAJA [facility] 04-07-2022 03:02-0500 Respiratory rate 18 /min Ashutosh SAILAJA [facility] 04-07-2022 03:02-0500 Systolic blood pressure 153 mm[Hg] Ashutosh SAILAJA [facility] 04-07-2022 02:28-0500 Diastolic Blood Pressure Invasive 107 mm[Hg] Ashutosh SAILAJA [facility] 04-07-2022 02:28-0500 Mean blood pressure 119 mm[Hg] Ashutosh SAILAJA [facility] 04-07-2022 02:28-0500 Respiratory rate 12 /min Ashutosh SAILAJA [facility] 04-07-2022 02:28-0500 Systolic blood pressure 143 mm[Hg] Ashutosh SAILAJA [facility] 04-07-2022 01:05-0500 Diastolic Blood Pressure Invasive 98 mm[Hg] Ashutosh SAILAJA [facility] 04-07-2022 01:05-0500 Mean blood pressure 111 mm[Hg] Ashutosh SAILAJA [facility] 04-07-2022 01:05-0500 Respiratory rate 17 /min Ashutosh SAILAJA [facility] 04-07-2022 01:05-0500 Systolic blood pressure 138 mm[Hg] Ashutosh SAILAJA [facility] 02-27-2022 17:30-0400 Diastolic blood pressure 93 mm[Hg] Gui Gilmar [facility] 02-27-2022 17:30-0400 Heart rate 100 /min Gui Gilamr [facility] 02-27-2022 17:30-0400 Mean blood pressure 103 mm[Hg] Gui Gilmar [facility] 02-27-2022 17:30-0400 Respiratory rate 13 /min Gui Gilmar [facility] 02-27-2022 17:30-0400 SaO2% (BldA) [Mass fraction] 99 % Gui Gilmar [facility] 02-27-2022 17:30-0400 Systolic blood pressure 124 mm[Hg] Gui Gilmar [facility] 02-27-2022 17:00-0400 Diastolic blood pressure 148 mm[Hg] Gui Gilmar [facility] 02-27-2022 17:00-0400 Heart rate 92 /min Gui Gilmar [facility] 02-27-2022 17:00-0400 Mean blood pressure 151 mm[Hg] Gui Gilmar [facility] 02-27-2022 17:00-0400 SaO2% (BldA) [Mass fraction] 98 % Gui Gilmar [facility] 02-27-2022 17:00-0400 Systolic blood pressure 158 mm[Hg] Gui Gilmar [facility] 02-27-2022 16:30-0400 Diastolic blood pressure 112 mm[Hg] Gui Gilmar [facility] 02-27-2022 16:30-0400 Heart rate 96 /min Gui Gilmar [facility] 02-27-2022 16:30-0400 Mean blood pressure 130 mm[Hg] Gui Gilmar [facility] 02-27-2022 16:30-0400 Respiratory rate 24 /min Gui Gilmar [facility] 02-27-2022 16:30-0400 SaO2% (BldA) [Mass fraction] 97 % Gui Gilmar [facility] 02-27-2022 16:30-0400 Systolic blood pressure 167 mm[Hg] Gui Gilmar [facility] 02-27-2022 12:31-0400 gluc 256 mg/dL Gui Gilmar [facility] 02-27-2022 12:31-0400 gluc Gui Schafer [facility] 02-27-2022 11:57-0400 Body temperature 97.88 [degF] Gui Schafer [facility] 02-27-2022 11:57-0400 Heart rate 99 /min Gui Schafer [facility] 02-27-2022 11:57-0400 Respiratory rate 18 /min Gui Schafer [facility] 02-21-2022 14:53-0400 Body temperature 98.24 [degF] Santos Agustin [facility] 02-21-2022 14:53-0400 Diastolic blood pressure 110 mm[Hg] Santos Agustin [facility] 02-21-2022 14:53-0400 Heart rate 100 /min Santos Velez [facility] 02-21-2022 14:53-0400 Respiratory rate 18 /min Santos Agustin [facility] 02-21-2022 14:53-0400 SaO2% (BldA) [Mass fraction] 97 % Santos Agustin [facility] 02-21-2022 14:53-0400 Systolic blood pressure 177 mm[Hg] Santos Velez [facility] 01-24-2022 14:21-0400 Diastolic blood pressure 101 mm[Hg] Preston Lugo [facility] 01-24-2022 14:21-0400 Heart rate 89 /min Preston Lugo [facility] 01-24-2022 14:21-0400 Mean blood pressure 113 mm[Hg] Preston Charli [facility] 01-24-2022 14:21-0400 Respiratory rate 16 /min Preston Charli [facility] 01-24-2022 14:21-0400 SaO2% (BldA) [Mass fraction] 99 % Preston Charli [facility] 01-24-2022 14:21-0400 Systolic blood pressure 136 mm[Hg] Preston Charli [facility] 01-24-2022 12:55-0400 Diastolic blood pressure 100 mm[Hg] Preston Charli [facility] 01-24-2022 12:55-0400 Heart rate 87 /min Preston Charli [facility] 01-24-2022 12:55-0400 Mean blood pressure 112 mm[Hg] Preston Charli [facility] 01-24-2022 12:55-0400 Respiratory rate 16 /min Preston Jonese [facility] 01-24-2022 12:55-0400 SaO2% (BldA) [Mass fraction] 99 % Preston Charli [facility] 01-24-2022 12:55-0400 Systolic blood pressure 137 mm[Hg] Preston Charli [facility] 01-24-2022 12:30-0400 Hourly Rounding Preston Jonese [facility] 01-24-2022 12:30-0400 Promise to Return Preston Charli [facility] 01-24-2022 10:46-0400 Body temperature 98.78 [degF] Preston Charli [facility] 01-24-2022 10:46-0400 Diastolic blood pressure 86 mm[Hg] Preston Lugo [facility] 01-24-2022 10:46-0400 Heart rate 89 /min Preston Lugo [facility] 01-24-2022 10:46-0400 Mean blood pressure 100 mm[Hg] Preston Lugo [facility] 01-24-2022 10:46-0400 Respiratory rate 18 /min Preston Lugo [facility] 01-24-2022 10:46-0400 SaO2% (BldA) [Mass fraction] 99 % Preston Lugo [facility] 01-24-2022 10:46-0400 Systolic blood pressure 129 mm[Hg] Preston Lugo [facility] 01-09-2022 22:00-0400 Hourly Rounding [facility] 01-09-2022 22:00-0400 Promise to Return [facility] 01-09-2022 21:47-0400 Hourly Rounding [facility] 01-09-2022 21:47-0400 Promise to Return [facility] 01-09-2022 20:00-0400 Hourly Rounding [facility] 01-09-2022 20:00-0400 Promise to Return [facility] 01-09-2022 18:00-0400 Diastolic blood pressure 98 mm[Hg] [facility] 01-09-2022 18:00-0400 Heart rate 94 /min [facility] 01-09-2022 18:00-0400 Mean blood pressure 115 mm[Hg] [facility] 01-09-2022 18:00-0400 SaO2% (BldA) [Mass fraction] 98 % [facility] 01-09-2022 18:00-0400 Systolic blood pressure 149 mm[Hg] [facility] 01-09-2022 15:38-0400 Body temperature 98.78 [degF] [facility] 01-09-2022 15:38-0400 Diastolic blood pressure 129 mm[Hg] [facility] 01-09-2022 15:38-0400 Heart rate 92 /min [facility] 01-09-2022 15:38-0400 SaO2% (BldA) [Mass fraction] 99 % [facility] 01-09-2022 15:38-0400 Systolic blood pressure 168 mm[Hg] [facility] 01-09-2022 15:32-0400 SaO2% (BldA) [Mass fraction] 99 % [facility] 01-09-2022 15:28-0400 Blood Pressure Location [facility] 01-09-2022 15:28-0400 BP/Pulse Patient Position [facility] 01-09-2022 15:28-0400 Diastolic blood pressure 129 mm[Hg] [facility] 01-09-2022 15:28-0400 Heart rate 92 /min [facility] 01-09-2022 15:28-0400 Mean blood pressure 142 mm[Hg] [facility] 01-09-2022 15:28-0400 Systolic blood pressure 168 mm[Hg] [facility] 01-09-2022 14:56-0400 Heart rate 93 /min [facility] 01-09-2022 14:56-0400 Mean blood pressure 133 mm[Hg] [facility] 01-09-2022 14:56-0400 Respiratory rate 16 /min [facility] 01-09-2022 14:15-0400 Respiratory rate 18 /min [facility] 01-09-2022 14:00-0400 Mean blood pressure 158 mm[Hg] [facility] 01-09-2022 13:20-0400 Heart rate 97 /min [facility] 01-09-2022 12:45-0400 Heart rate 102 /min [facility] 01-09-2022 12:15-0400 Body temperature 97.88 [degF] [facility] 01-09-2022 12:15-0400 Respiratory rate 20 /min [facility] 12-12-2021 16:48-0400 Blood Pressure Location Breanna Gu [facility] 12-12-2021 16:48-0400 Body temperature 98.06 [degF] Breanna Gu [facility] 12-12-2021 16:48-0400 Diastolic blood pressure 82 mm[Hg] Breanna Gu [facility] 12-12-2021 16:48-0400 Heart rate 100 /min Breanna Gu [facility] 12-12-2021 16:48-0400 SaO2% (BldA) [Mass fraction] 97 % Breanna Gu [facility] 12-12-2021 16:48-0400 Systolic blood pressure 136 mm[Hg] Breanna Gu [facility] 12-08-2021 15:56-0400 Diastolic blood pressure 75 mm[Hg] Antoine Sosa MD Work Phone: [facility] 12-08-2021 15:56-0400 Heart rate 100 /min Antoine Sosa MD [facility] Phone: [facility] 12-08-2021 15:56-0400 Respiratory rate 16 /min Antoine Sosa MD [facility] Phone[facility] 12-08-2021 15:56-0400 SaO2% (BldA) [Mass fraction] 98 % Antoine Sosa MD Work Phone: [facility] 12-08-2021 15:56-0400 Systolic blood pressure 104 mm[Hg] Antoine Sosa MD [facility] Phone: [facility] 12-08-2021 15:19-0400 Body height 157.5 cm Antoine Sosa MD Work Phone: [facility] 12-08-2021 15:19-0400 Body mass index (BMI) [Ratio] 45.73 kg/m2 Antoine Sosa MD Work Phone: [facility] 12-08-2021 15:19-0400 Body temperature 98.6 [degF] Antoine Sosa MD Work Phone: [facility] 12-08-2021 15:19-0400 Body weight 113.4 kg Antoine Sosa MD Work Phone: [facility] 12-08-2021 12:44-0400 Diastolic blood pressure 108 mm[Hg] Santos Moreno [facility] 12-08-2021 12:44-0400 Heart rate 99 /min Santos Josh [facility] 12-08-2021 12:44-0400 Mean blood pressure 127 mm[Hg] Santos Moreno [facility] 12-08-2021 12:44-0400 Respiratory rate 17 /min Santos Moreno [facility] 12-08-2021 12:44-0400 SaO2% (BldA) [Mass fraction] 98 % Santos Josh [facility] 12-08-2021 12:44-0400 Systolic blood pressure 166 mm[Hg] Santos Josh [facility] 12-08-2021 12:20-0400 Diastolic blood pressure 83 mm[Hg] Santos Josh [facility] 12-08-2021 12:20-0400 Heart rate 88 /min Santos Josh [facility] 12-08-2021 12:20-0400 Mean blood pressure 93 mm[Hg] Santos Josh [facility] 12-08-2021 12:20-0400 Respiratory rate 17 /min Santos Josh [facility] 12-08-2021 12:20-0400 Respiratory rate 18 /min Santos Josh [facility] 12-08-2021 12:20-0400 SaO2% (BldA) [Mass fraction] 99 % Santos Josh [facility] 12-08-2021 12:20-0400 Systolic blood pressure 114 mm[Hg] Santos Josh [facility] 12-08-2021 11:41-0400 Diastolic blood pressure 87 mm[Hg] Santos Josh [facility] 12-08-2021 11:41-0400 Heart rate 89 /min Santos Josh [facility] 12-08-2021 11:41-0400 Mean blood pressure 99 mm[Hg] Santos Josh [facility] 12-08-2021 11:41-0400 Respiratory rate 18 /min Santos Moreno [facility] 12-08-2021 11:41-0400 SaO2% (BldA) [Mass fraction] 99 % Santos Moreno [facility] 12-08-2021 11:41-0400 Systolic blood pressure 122 mm[Hg] Santos Moreno [facility] 12-08-2021 10:01-0400 Body temperature 97.7 [degF] Santos Moreno [facility] 12-08-2021 10:01-0400 Heart rate 101 /min Santos Moreno [facility] 12-08-2021 10:01-0400 Respiratory rate 18 /min Santos Moreno [facility] 11-06-2021 13:03-0400 [facility] 11-06-2021 13:03-0400 [facility] 11-06-2021 12:05-0400 Hourly Rounding [facility] 11-06-2021 12:05-0400 [facility] 11-06-2021 11:05-0400 [facility] 11-06-[facility] 11:05-0400 [facility] 11-06-2021 11:00-0400 Diastolic blood pressure 72 mm[Hg] [facility] 11-06-2021 11:00-0400 Heart rate 72 /min [facility] 11-06-2021 11:00-0400 SaO2% (BldA) [Mass fraction] 98 % [facility] 11-06-2021 11:00-0400 Systolic blood pressure 142 mm[Hg] [facility] 11-06-2021 08:04-0400 Body temperature 98.06 [degF] [facility] 11-06-2021 08:04-0400 Diastolic blood pressure 97 mm[Hg] [facility] 11-06-2021 08:04-0400 Heart rate 94 /min [facility] 11-06-2021 08:04-0400 Mean blood pressure 122 mm[Hg] [facility] 11-06-2021 08:04-0400 SaO2% (BldA) [Mass fraction] 99 % [facility] 11-06-2021 08:04-0400 Systolic blood pressure 171 mm[Hg] [facility] 11-06-2021 08:00-0400 Blood Pressure Location [facility] 11-06-2021 08:00-0400 BP/Pulse Patient Position [facility] 11-05-2021 23:33-0400 FIO2 21 % [facility] 11-05-2021 23:33-0400 Heart rate 60 /min [facility] 11-05-2021 23:33-0400 Respiratory rate 12 /min [facility] 11-05-2021 23:33-0400 SaO2% (BldA) [Mass fraction] 97 % [facility] 11-05-2021 23:00-0400 Body temperature 97.88 [degF] [facility] 11-05-2021 23:00-0400 Diastolic blood pressure 66 mm[Hg] [facility] 11-05-2021 23:00-0400 Systolic blood pressure 94 mm[Hg] [facility] 11-05-2021 20:41-0400 Mean blood pressure 109 mm[Hg] [facility] 11-05-2021 20:23-0400 Respiratory rate 18 /min [facility] 11-05-2021 15:53-0400 Blood Pressure Location [facility] 11-05-2021 15:53-0400 BP/Pulse [facility] 11-05-2021 15:53-0400 Mean blood pressure 105 mm[Hg] [facility] 11-05-2021 14:57-0400 Heart rate 104 /min [facility] 11-05-2021 11:08-0400 Blood Pressure Location [facility] 11-05-2021 11:08-0400 BP/Pulse [facility] 11-05-2021 00:25-0400 Heart rate 65 /min [facility] 11-05-2021 00:25-0400 Mean blood pressure 59 mm[Hg] [facility] 11-04-2021 19:15-0400 Mean blood pressure 104 mm[Hg] [facility] [facility] 11-04-2021 18:49-0400 Heart rate 112 /min [facility] 17:44-0400 Mean blood pressure 91 mm[Hg] [facility] 10-09-2021 17:57-0400 Diastolic blood pressure 87 mm[Hg] Santos Velez [facility] 10-09-2021 17:57-0400 Heart rate 102 /min Santos Velez [facility] 10-09-2021 17:57-0400 Mean blood pressure 105 mm[Hg] Santos Velez [facility] 10-09-2021 17:57-0400 Respiratory rate 16 /min Santos Agustin [facility] 10-09-2021 17:57-0400 SaO2% (BldA) [Mass fraction] 97 % Santos Agustin [facility] 10-09-2021 17:57-0400 Systolic blood pressure 141 mm[Hg] Santos Agustin [facility] 10-09-2021 17:40-0400 Hourly Rounding Santos Agustin [facility] 10-09-2021 17:40-0400 Promise to Return Santos Agustin [facility] 10-09-2021 17:38-0400 Diastolic blood pressure 88 mm[Hg] Santos Agustin [facility] 10-09-2021 17:38-0400 Heart rate 104 /min Santos Agustin [facility] 10-09-2021 17:38-0400 Mean blood pressure 105 mm[Hg] Asntos Agustin [facility] 10-09-2021 17:38-0400 Respiratory rate 16 /min Santos Agustin [facility] 10-09-2021 17:38-0400 SaO2% (BldA) [Mass fraction] 96 % Santos Agustin [facility] 10-09-2021 17:38-0400 Systolic blood pressure 140 mm[Hg] Santos Agustin [facility] 10-09-2021 16:10-0400 Diastolic blood pressure 75 mm[Hg] Santos Agustin [facility] 10-09-2021 16:10-0400 Heart rate 107 /min Santos Agustin [facility] 10-09-2021 16:10-0400 Hourly Rounding Santos Velez [facility] 10-09-2021 16:10-0400 Mean blood pressure 97 mm[Hg] Santos Velez [facility] 10-09-2021 16:10-0400 Promise to Return Santos Velez [facility] 10-09-2021 16:10-0400 Respiratory rate 16 /min Santos Velez [facility] 10-09-2021 16:10-0400 SaO2% (BldA) [Mass fraction] 96 % Santos Velez [facility] 10-09-2021 16:10-0400 Systolic blood pressure 141 mm[Hg] Santos Velez [facility] 10-09-2021 15:29-0400 Body temperature 98.6 [degF] Santso Velez [facility] 10-09-2021 15:29-0400 Heart rate 109 /min Santos Velez [facility] 09-30-2021 13:53-0400 Blood Pressure Location Breanna Riccardo [facility] 09-30-2021 13:53-0400 Body temperature 97.7 [degF] Breanna Gu [facility] 09-30-2021 13:53-0400 Diastolic blood pressure 70 mm[Hg] Breanna Gu [facility] 09-30-2021 13:53-0400 Heart rate 72 /min Breanna Gu [facility] 09-30-2021 13:53-0400 SaO2% (BldA) [Mass fraction] 98 % Breanna Gu [facility] 09-30-2021 13:53-0400 Systolic blood pressure 122 mm[Hg] Breanna Gu [facility] 09-02-2021 14:55-0400 Blood Pressure Location Kirk Abbott [facility] 09-02-2021 14:55-0400 Diastolic blood pressure 76 mm[Hg] Kirk Panteraerson [facility] 09-02-2021 14:55-0400 Heart rate 67 /min Kirk Woodallofferson [facility] 09-02-2021 14:55-0400 Respiratory rate 18 /min Kirk Abbott [facility] 09-02-2021 14:55-0400 SaO2% (BldA) [Mass fraction] 100 % Kirk Milena [facility] 09-02-2021 14:55-0400 Systolic blood pressure 109 mm[Hg] Kirk Jose Cofferson [facility] 06-14-2021 19:00-0500 Body height 157.48 cm Herlinda June Other [facility] Other 06-14-2021 19:00-0500 Body mass index (BMI) [Ratio] 42.06 kg/m2 Herlinda June Other [facility] Other 06-14-2021 19:00-0500 Body temperature 96.1 [degF] Herlinda June Other [facility] Other 06-14-2021 19:00-0500 Body weight 104.33 kg Herlinda June Other [facility] Other 06-14-2021 19:00-0500 SaO2% (BldA) [Mass fraction] 97 % Herlinda June Other [facility] Other 06-05-2020 15:11-0500 Body Temperature 97.9 [degF] [facility] 06-05-2020 15:11-0500 BP Diastolic 77 mm[Hg] [facility] 06-05-2020 15:11-0500 BP Systolic 110 mm[Hg] [facility] 06-05-2020 15:11-0500 Pulse (Heart Rate) 79 /min [facility] 06-05-2020 15:11-0500 Pulse Oximetry 96 % [facility] 06-05-2020 15:11-0500 Respiratory Rate 15 /min [facility] 06-03-2020 14:24-0500 BMI (Body Mass Index) 48.29 kg/m2 [facility] 06-03-2020 14:24-0500 Body weight 119.75 kg [facility] 06-03-2020 14:24-0500 Height 157.5 cm [facility] 09-09-2018 13:59-0400 Body Temperature 97.3 [degF] Shameka Bautista [facility] 09-09-2018 13:59-0400 BP Diastolic 83 mm[Hg] Shameka Baum [facility] 09-09-2018 13:59-0400 BP Systolic 113 mm[Hg] Shameka Bautista [facility] 09-09-2018 13:59-0400 Pulse (Heart Rate) 98 /min Shameka Baum [facility] 09-09-2018 13:59-0400 Pulse Oximetry 100 % Shameka Baum [facility] 09-09-2018 13:59-0400 Respiratory Rate 16 /min [facility] 09-09-2018 08:00-0400 Body weight 110.8 [facility] 09-07-2018 14:20-0400 Height 157.48 cm [facility] 09-06-2018 19:43-0400 BMI (Body Mass Index) 42.1 kg/m2 [facility] 06-26-2017 21:27-0500 BP Diastolic 105 mm[Hg] Michi San [facility] Work Phone: 06-26-2017 21:27-0500 BP Systolic 122 mm[Hg] Michi San [facility] Work Phone: 06-26-2017 21:27-0500 Pulse (Heart Rate) 91 /min Michi San [facility] Work Phone: 06-26-2017 21:27-0500 Pulse Oximetry 100 % Michi San [facility] Work Phone: 06-26-2017 21:27-0500 Respiratory Rate 17 /min Michi San [facility] Work Phone: 06-26-2017 18:34-0500 BMI (Body Mass Index) 36.58 kg/m2 Michi San [facility] Work Phone: 06-26-2017 18:34-0500 Body Temperature 98.4 [degF] Michi San [facility] Work Phone: 06-26-2017 18:34-0500 Height 157.5 cm Michi San [facility] Work Phone: 06-26-2017 18:34-0500 Weight 90.72 kg Michi San [facility] Work Phone: Encounters Encounter Date Encounter Type Care Provider Facility Start: 09-29-2024 End: 09-29-2024 Documentation procedure Jay Peralta MA [facility] Comment on above: [employer] Start: 09-28-2024 ambulatory STEPHANY PELAYO [facility] Start: 09-23-2024 End: 09-23-2024 Refill Jim Soto Velez DO Work Phone: [facility] [place] Comment on above: Chronic pain syndrom e 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 (Primary Dx); Lumbar radiculopathy; Chronic pain syndrome Start: 09-23-2024 End: 09-23-2024 Office outpatient visit 25 minutes Jim Soto Velez DO Work Phone: [facility] [place] Comment on above: Myofascial pain synd sudarshan (Primary Dx); DDD (degenerative disc disease), lumbar; Lumbar radiculopathy; Chronic pain syndrome Start: 09-23-2024 End: 09-23-2024 ambulatory Mery ROBLES [facility] Start: 09-22-2024 End: 09-22-2024 Emergency department patient visit SHAMEKA BRIDGER PALOMO [facility] Start: 09-22-2024 End: 09-22-2024 Documentation procedure Karon Beard PA-C Work Phone: [facility] Start: 09-22-2024 ambulatory STEPHANY PELAYO [facility] Start: 09-18-2024 End: 09-18-2024 Emergency department patient visit [facility] Start: 08-29-2024 End: 08-29-2024 Emergency department patient visit No Doctor [facility] Start: 08-24-2024 End: 08-24-2024 Documentation procedure Mihai Elizalde CNP Work Phone: [facility] Start: 08-18-2024 End: 08-19-2024 Orders Only Mery Robles MD Work Phone: [facility] Orthopedics Comment on above: Pain in both knees, unspecified chronicity (Primary Dx) DDD (degenerative di sc disease), lumbar; Lumbar radiculopathy; Chronic pain syndrome Start: 08-08-2024 End: 08-09-2024 Orders Only Agapito Schuler PA-C Work Phone: [facility] Spine Surgery Comment on above: Lumbar pain (Primary Dx) Start: 08-04-2024 End: 08-04-2024 Documentation procedure Rafaela Castillo MA [facility] Comment on above: Pulse ox Start: 08-02-2024 End: 08-02-2024 ambulatory [facility] Start: 08-02-2024 End: 08-02-2024 Office outpatient visit 25 minutes Stephany Pelayo PA-C Work Phone: [facility] Comment on above: Bipolar 1 disorder ( HCC) (Primary Dx); Chronic pain of both knees; Degeneration of intervertebral disc of lumbar region with discogenic back pain; Chronic pain syndrome; Diabetic ulcer of left great toe (HCC); Type 2 diabetes mellitus with diabetic polyneuropathy, with long-term current use of insulin (HCC); Primary hypertension; Chronic nonintractable headache, unspecified headache type; Abnormal pigmentation of skin; Chronic obstructive pulmonary disease, unspecified COPD type (HCC); Hypothyroidism, unspecified type; History of stroke; Seizures ([facility]); Hypercholesterolemia; Urinary incontinence, unspecified type; Gastroesophageal reflux disease, unspecified whether esophagitis present; Family history of pulmonary fibrosis; Candidiasis of breast; Insomnia, unspecified type; Vitamin B12 deficiency; Vitamin D deficiency; Encounter for screening mammogram for malignant neoplasm of breast; Encounter for health-related screening Start: 08-02-2024 End: 08-02-2024 ambulatory STEPHANY LEANN [facility] Start: 07-21-2024 End: 07-21-2024 Documentation procedure Rafaela Castillo MA [facility] Comment on above: shower chair Start: 07-15-2024 End: 07-15-2024 Office outpatient visit 25 minutes Stephany Pelayo PA-C Work Phone: [facility] Comment on above: Seizures (HCC) (Prim margoth Dx); Chronic nonintractable headache, unspecified headache type; Primary hypertension; Sick sinus syndrome (HCC); Type 2 diabetes mellitus with diabetic polyneuropathy, with long-term current use of insulin (HCC); Gastroesophageal reflux disease, unspecified whether esophagitis present Start: 07-15-2024 End: 07-15-2024 ambulatory STEPHANY PELAYO [facility] Start: 07-12-2024 End: 07-25-2024 Refill Mihai Elizalde FURS SALESPERSON Work Phone: [facility] [place] Comment on above: DDD (degenerative di sc disease), lumbar; Lumbar radiculopathy; Chronic pain syndrome Start: 07-05-2024 End: 07-05-2024 Bamboo flowsheet Soto D Dolce DPM FACFAS Work Phone: [facility] Start: 07-05-2024 End: 07-05-2024 Bamboo flowsheet Soto D Dolce DPM FACFAS Work Phone: [facility] Start: 07-05-2024 End: 07-05-2024 Office outpatient visit 15 minutes Soto D Dolce DPM FACFAS Work Phone: [facility] Comment on above: Type II diabetes lupe litus with neurological manifestations (CMS/HCC) (Primary Dx); Chronic foot ulcer with fat layer exposed, left (CMS/HCC); Cellulitis of left foot Start: 07-05-2024 End: 07-05-2024 ambulatory SOTO Lauren DOLCE Not Available Start: 06-10-2024 End: 06-23-2024 Refill Mihai Elizalde FURS SALESPERSON Work Phone: [facility] [place] Comment on above: Chronic pain syndrom e; DDD (degenerative disc disease), lumbar; Lumbar radiculopathy Start: 06-06-2024 End: 06-07-2024 Documentation procedure Rafaela Castillo MA [facility] Comment on above: incontinence supplie s Start: 05-31-2024 End: 05-31-2024 Documentation procedure Karon Meng LPN [facility] Start: 05-27-2024 End: 05-27-2024 Refill Stephany Pelayo PACheC Work Phone: [facility] Comment on above: Bipolar 1 disorder ( HCC); Insomnia, unspecified type Start: 05-23-2024 End: 05-23-2024 Emergency department patient visit STEPHANY PELAYO [facility] Start: 05-13-2024 End: 05-13-2024 Office outpatient visit 25 minutes Mihai Elizalde CNP Work Phone: [facility] [place] Comment on above: Lumbar radiculopathy (Primary Dx); Chronic pain syndrome; DDD (degenerative disc disease), lumbar; Encounter for monitoring opioid maintenance therapy; Other chronic pain; Myofascial pain syndrome Start: 05-13-2024 End: 05-13-2024 ambulatory MIHAI ELIZALDE [facility] Start: 04-28-2024 End: 04-29-2024 Refill Mihai Elizalde CNP Work Phone: [facility] [place] Comment on above: Chronic pain syndrom e Start: 04-26-2024 End: 04-29-2024 Evaluation and management of inpatient Jacoby Dooley MD Work Phone: [facility] Start: 04-12-2024 End: 04-13-2024 Refill Jim Velez DO Work Phone: [facility] [place] Comment on above: DDD (degenerative di sc disease), lumbar; Lumbar radiculopathy Chronic pain syndrom e Start: 03-30-2024 End: 03-30-2024 Documentation procedure Maite Adams LPN [facility] Endocrinology Comment on above: [facility] Start: 03-25-2024 End: 03-25-2024 Orders Only Stephany Pelayo PA-C Work Phone: [facility] Start: 03-24-2024 End: 04-04-2024 Evaluation and management of inpatient Ko Aaron MD Work Phone: [facility] [place] Start: 03-24-2024 End: 03-24-2024 Orders Only Stephany Pelayo PA-C Work Phone: [facility] Start: 03-22-2024 End: 03-22-2024 Office outpatient visit 25 minutes Stephany Pelayo PA-C Work Phone: [facility] Comment on above: Primary hypertension (Primary Dx); Diarrhea, unspecified type; Abdominal cramping; Abdominal wound dehiscence, initial encounter; Bipolar 1 disorder (HCC); Seizures ([facility]); Chronic pain of both knees; Urinary incontinence, unspecified type; Candidiasis; Abnormal pigmentation of skin Start: 03-22-2024 End: 03-25-2024 Refill Jim Velez DO Work Phone: [facility] [place] Comment on above: Chronic pain syndrom e Start: 03-08-2024 End: 03-10-2024 Refill Mihai Elizalde CNP Work Phone: [facility] [place] Comment on above: DDD (degenerative di sc disease), lumbar; Lumbar radiculopathy Start: 02-11-2024 End: 02-15-2024 ambulatory [facility] Start: 02-11-2024 End: 02-11-2024 Office outpatient visit 25 minutes Stephany Pelayo PA-C Work Phone: [facility] Comment on above: Diabetic ulcer of le ft great toe (HCC) (Primary Dx); Hypertensive urgency; Chronic nonintractable headache, unspecified headache type; Abnormal pigmentation of skin; Pleuritic chest pain; Type 2 diabetes mellitus with diabetic polyneuropathy, with long-term current use of insulin (HCC); Chronic obstructive pulmonary disease, unspecified COPD type (HCC); Hypothyroidism, unspecified type; History of stroke; Seizures ([facility]); Hypercholesterolemia; Chronic pain syndrome; Urinary incontinence, unspecified type; Bipolar 1 disorder (HCC); Insomnia, unspecified type; Gastroesophageal reflux disease, unspecified whether esophagitis present; Family history of pulmonary fibrosis; Vitamin B12 deficiency; Vitamin D deficiency; Cigarette nicotine dependence without complication; Need for vaccination Start: 02-11-2024 End: 02-11-2024 ambulatory [facility] Start: 02-08-2024 End: 02-08-2024 Refill Laura Child MA [facility] Psych Comment on above: Bipolar 1 disorder ( HCC); Insomnia, unspecified type Start: 02-04-2024 End: 02-04-2024 Orders Only Jim Velez DO Work Phone: [facility] [place] Comment on above: DDD (degenerative di sc disease), lumbar; Lumbar radiculopathy Start: 02-03-2024 End: 02-03-2024 Refill Jim Velez DO Work Phone: [facility] [place] Comment on above: DDD (degenerative di sc disease), lumbar; Lumbar radiculopathy Start: 02-02-2024 End: 02-02-2024 Office outpatient visit 25 minutes Jim Velez DO Work Phone: [facility] [place] Comment on above: Chronic pain syndrom e (Primary Dx); DDD (degenerative disc disease), lumbar; Lumbar radiculopathy; Other chronic pain; Myofascial pain syndrome; Debilitated patient Start: 02-02-2024 End: 02-02-2024 ambulatory STEPHANY PELAYO [facility] Start: 01-27-2024 End: 01-27-2024 Transitional care manage srvc 14 day discharge Rafaela Medrano CNP Work Phone: [facility]icians Comment on above: Diabetic ulcer of ri ght foot associated with type 2 diabetes mellitus, unspecified part of foot, unspecified ulcer stage (HCC) (Primary Dx); Primary hypertension; SOLO (acute kidney injury) (HCC); Hypothyroidism, unspecified type; Hyperlipidemia, unspecified hyperlipidemia type Start: 01-27-2024 End: 01-28-2024 ambulatory Swapnil Hooks [facility] Care Comment on above: Chronic pain syndrom e Start: 01-12-2024 End: 01-18-2024 Evaluation and management of inpatient Jacoby Dooley MD Work Phone: [facility] Start: 01-12-2024 End: 01-12-2024 Office outpatient visit 25 minutes Stephany Pelayo PA-C Work Phone: [facility] Comment on above: Diabetic ulcer of le ft great toe (HCC) (Primary Dx) Start: 01-12-2024 End: 01-12-2024 ambulatory STEPHANY PELAYO [facility] Start: 01-11-2024 End: 01-13-2024 Refill Jim Velez DO Work Phone: [facility] [place] Comment on above: DDD (degenerative di sc disease), lumbar; Lumbar radiculopathy; Muscle spasms of both lower extremities Start: 01-09-2024 End: 01-10-2024 Emergency department patient visit STEFANIESCOOBY BYRNES [facility] Start: 12-21-2023 End: 12-22-2023 Refill Mihai Elizalde CNP Work Phone: [facility] [place] Comment on above: Chronic pain syndrom e Start: 12-18-2023 ambulatory JIM VELEZ [facility] Start: 12-15-2023 ambulatory JIM VELEZ [facility] Start: 12-14-2023 End: 12-14-2023 Documentation procedure Rafaela Castillo [facility] Comment on above: nebulizer supplies Start: 12-08-2023 End: 12-08-2023 Office outpatient new 45 minutes Stephany Pelayo PA-C Work Phone: [facility] [place] Comment on above: Chronic pain syndrom e (Primary Dx); Muscle spasms of both lower extremities; DDD (degenerative disc disease), lumbar; Lumbar radiculopathy; Other chronic pain; Myofascial pain syndrome; Debilitated patient Start: 12-08-2023 End: 12-10-2023 Refill Moo Pressley MA [facility] End[facility]in[facility] Start: 12-07-2023 End: 12-07-2023 Emergency department patient visit AMANDA GREENFIELD [facility] Start: 12-07-2023 End: 12-08-2023 Refill Moo Pressley MA [facility] End[facility] Comment on above: Type 2 diabetes chelly itus with diabetic polyneuropathy, with long-term current use of insulin (HCC) Start: 12-03-2023 End: 12-03-2023 Refill Sahara Sanchez MD Work Phone: [facility] Comment on above: Type 2 diabetes chelly itus with diabetic polyneuropathy, with long-term current use of insulin (HCC) Start: 12-02-2023 End: 12-02-2023 Office outpatient new 60 minutes Stephany Pelayo PA-C Work Phone: [facility] Comment on above: Type 2 diabetes chelly itus with diabetic polyneuropathy, with long-term current use of insulin (HCC) (Primary Dx); Proliferative diabetic retinopathy associated with type 2 diabetes mellitus, unspecified laterality, unspecified proliferative retinopathy type (HCC); Dyslipidemia; Essential hypertension; Obesity, unspecified classification, unspecified obesity type, unspecified whether serious comorbidity present Start: 12-02-2023 End: 12-03-2023 Refill Maite Adams LPN [facility] Comment on above: Type 2 diabetes chelly itus with diabetic polyneuropathy, with long-term current use of insulin (HCC) (Primary Dx) Start: 12-01-2023 End: 12-01-2023 Office outpatient visit 25 minutes Stephany Pelayo PA-C Work Phone: [facility] Comment on above: Primary hypertension (Primary Dx); Upper respiratory tract infection, unspecified type; Chronic obstructive pulmonary disease, unspecified COPD type (HCC); Family history of pulmonary fibrosis; Retinal hemorrhage of left eye Start: 12-01-2023 End: 12-01-2023 ambulatory STEPHANY PELAYO [facility] Start: 11-17-2023 ambulatory STEPHANY PELAYO [facility] Start: 11-12-2023 Refill Stephany ro PA-C Work Phone: [facility] Comment on above: Muscle spasms of bot h lower extremities; Type 2 diabetes mellitus with diabetic polyneuropathy, with long-term current use of insulin (HCC) Start: 11-09-2023 End: 11-09-2023 Emergency department patient visit [facility] Start: 11-09-2023 End: 11-09-2023 Office outpatient new 45 minutes Anders London MD Work Phone: [facility] Comment on above: Vision loss of left eye (Primary Dx); Ocular hypertension of left eye; Proliferative diabetic retinopathy of left eye associated with type 2 diabetes mellitus, unspecified proliferative retinopathy type; Nonproliferative diabetic retinopathy of right eye; Pseudophakia; Dry eye syndrome of bilateral lacrimal glands Start: 11-09-2023 ambulatory JESSICA Perez ty:[facility] Start: 11-07-2023 End: 11-07-2023 Emergency department patient visit [facility] Start: 10-30-2023 Refill Rosario willoughby MD Work Phone: [facility] Start: 10-29-2023 End: 01-12-2024 Orders Only Shaye Gloria MA [facility] Start: 10-28-2023 Orders Only Stephany ro PA-C Work Phone: [facility] Comment on above: Subacute cough (Prim margoth Dx); Family history of pulmonary fibrosis Start: 10-23-2023 Orders Only Shameka salas DPM Work Phone: [facility] Start: 10-15-2023 End: 10-15-2023 Emergency department patient visit [facility] Start: 10-13-2023 End: 10-13-2023 Office outpatient visit 25 minutes Stephany Pelayo PA-C Work Phone: [facility] Comment on above: Primary hypertension (Primary Dx); Subacute cough; RUQ abdominal pain; Type 2 diabetes mellitus with diabetic polyneuropathy, with long-term current use of insulin (HCC); Family history of pulmonary fibrosis Start: 10-13-2023 End: 10-13-2023 ambulatory STEPHANY PELAYO [facility] Start: 10-07-2023 End: 10-07-2023 Office outpatient visit 25 minutes Rosario Garcia MD Work Phone: [facility] Psych Comment on above: Bipolar 1 disorder ( HCC) (Primary Dx); Post traumatic stress disorder (PTSD); Generalized anxiety disorder; Insomnia, unspecified type Start: 10-07-2023 End: 10-07-2023 ambulatory STEPHANY PELAYO [facility] Start: 10-07-2023 Documentation procedure Magnolia Chavira [facility] Psych Start: 10-06-2023 Refill Stephany ro PA-C Work Phone: [facility] Comment on above: Muscle spasms of bot h lower extremities Start: 09-22-2023 Orders Only Shameka Aguirre Lexx salas DPM Work Phone: [facility] Comment on above: Right foot ulcer, wi th fat layer exposed (HCC) (Primary Dx) Start: 09-16-2023 End: 09-16-2023 Office outpatient visit 40 minutes Virgen Campos MD Work Phone: [facility] Neurology Comment on above: Hearing loss of left ear, unspecified hearing loss type (Primary Dx); Lacunar stroke (HCC); Seizure (HCC) Start: 09-15-2023 Refill Laura Child [facility] Start: 09-10-2023 Documentation procedure Rafaela rockwell MA [facility] Comment on above: DME Start: 09-07-2023 Refill Maye Ramirez [facility] Comment on above: Muscle spasms of bot h lower extremities Start: 09-03-2023 End: 09-03-2023 Periodic preventive med est patient 40-64yrs Stephany Pelayo PA-C Work Phone: [facility] Comment on above: Chronic pain syndrom e (Primary Dx); Muscle spasms of both lower extremities; Urinary incontinence, unspecified type; Chronic nonintractable headache, unspecified headache type; Chronic obstructive pulmonary disease, unspecified COPD type (HCC); Type 2 diabetes mellitus with diabetic polyneuropathy, with long-term current use of insulin (HCC); Diabetic peripheral neuropathy (HCC); Diabetic ulcer of right foot associated with type 2 diabetes mellitus, unspecified part of foot, unspecified ulcer stage (HCC); Hypothyroidism, unspecified type; Primary hypertension; Hypercholesterolemia; S/P placement of cardiac pacemaker; Seizures (HCC); Bipolar 1 disorder (HCC); Gastroesophageal reflux disease, unspecified whether esophagitis present; Vitamin D deficiency; Vitamin B12 deficiency; Cigarette nicotine dependence without complication Start: 09-01-2023 Emergency department patient visit LEXY LEACH Facility:[facility] Start: 08-26-2023 End: 08-26-2023 Emergency department patient visit Floyd Mercado MD Work Phone: [facility] Start: 08-11-2023 Refill Rafaela cline FURS SALESPERSON Work Phone: [facility] Comment on above: Muscle spasms of bot h lower extremities Start: 08-10-2023 Refill Rafaela clien FUR[employer] SALESPERSON Work Phone: [facility] Comment on above: Type 2 diabetes chelly itus with diabetic polyneuropathy, with long-term current use of insulin (HCC) (Primary Dx); Muscle spasms of both lower extremities Start: 08-03-2023 End: 08-03-2023 Office outpatient new 60 minutes Stephany Pelayo PA-C Work Phone: [facility] Comment on above: Post traumatic stres s disorder (PTSD) (Primary Dx); Bipolar 1 disorder (HCC); Insomnia, unspecified type; Generalized anxiety disorder Start: 06-22-2023 End: 06-22-2023 Office outpatient visit 25 minutes Harris Bhat MD Work Phone: [facility] Comment on above: Bipolar 1 disorder ( HCC) (Primary Dx); Type 2 diabetes mellitus with diabetic polyneuropathy, with long-term current use of insulin (HCC); Seizures (HCC); Incontinence in female Start: 06-22-2023 Refill Maye Ramirez LPN [facility] Comment on above: Bipolar 1 disorder ( HCC) (Primary Dx) Start: 05-27-2023 ambulatory Marcia guerrero [facility] Comment on above: High Risk Outreach f or High Risk Start: 05-15-2023 End: 05-15-2023 Home visit Jackelyn Wasserman RN [facility] Comment on above: SN HH NON ADMIT VISI T Start: 05-15-2023 End: 05-15-2023 Office outpatient visit 25 minutes Stephany Pelayo PA-C Work Phone: [facility] Comment on above: Left-sided weakness (Primary Dx); Visual loss, left eye; Acute effusion of left ear; Diabetic ulcer of right foot associated with type 2 diabetes mellitus, unspecified part of foot, unspecified ulcer stage ([facility]); Gastroesophageal reflux disease, unspecified whether esophagitis present; Weight gain Start: 05-15-2023 ambulatory Faustina Severino RN [facility] Comment on above: High Risk Outreach f or High Risk Start: 05-15-2023 Documentation procedure Rafaela rockwell [facility] Comment on above: hosp bed Start: 05-14-2023 ambulatory Swapnil Neno [facility] Start: 05-11-2023 ambulatory STEPHANY PELAYO [facility] Start: 05-06-2023 End: 05-06-2023 Office outpatient new 45 minutes Stephany Pelayo PA-C Work Phone: [facility] Comment on above: Non-recurrent acute suppurative otitis media of left ear without spontaneous rupture of tympanic membrane (Primary Dx); Type 2 diabetes mellitus with diabetic polyneuropathy, with long-term current use of insulin ([facility]); Diabetic ulcer of right foot associated with type 2 diabetes mellitus, unspecified part of foot, unspecified ulcer stage ([facility]); Diabetic peripheral neuropathy ([facility]); Hypertensive urgency; Chronic obstructive pulmonary disease, unspecified COPD type ([facility]); Chronic chest pain; S/P placement of cardiac pacemaker; Hypothyroidism, unspecified type; Seizures ([facility]); Bipolar 1 disorder ([facility]); Insomnia, unspecified type; Gastroesophageal reflux disease, unspecified whether esophagitis present; Generalized weakness; Muscle spasms of both lower extremities; Vitamin B12 deficiency; Vitamin D deficiency; Incontinence of feces, unspecified fecal incontinence type; Cigarette nicotine dependence without complication; Screening for cervical cancer; Encounter for screening mammogram for malignant neoplasm of breast; Encounter for vaccination Start: 04-29-2023 End: 04-29-2023 Home visit Cece Colin [facility] Comment on above: OT NON-OASIS/DISCIPL INE DISCHARGE Start: 04-29-2023 End: 04-29-2023 Home visit Karen Prather PT [facility] Comment on above: PT NON-OASIS/DISCIPL INE DISCHARGE Start: 04-27-2023 Home visit Nikko Pratt SUPERVISOR KOSHER DIETARY SERVICE [facility] Comment on above: SUPERVISOR KOSHER DIETARY SERVICE MISSED VISIT Start: 04-24-2023 End: 04-24-2023 Home visit Radha Jameson [facility] Comment on above: RETANA MISSED VISIT SUPERVISOR KOSHER DIETARY SERVICE MISSED VISIT Start: 04-23-2023 End: 04-23-2023 Home visit Radha Jameson [facility] Comment on above: RETANA MISSED VISIT Start: 04-22-2023 End: 04-22-2023 Home visit Ama Wilcox RN [facility] Comment on above: SN HH OASIS DISCHARG E Start: 04-21-2023 End: 04-21-2023 Home visit Nikko Pratt [facility] Comment on above: SUPERVISOR KOSHER DIETARY SERVICE MISSED VISIT CASE COMMUNICATION CARE CONFERENCE Start: 04-20-2023 End: 04-20-2023 Home visit Ama Wilcox RN [facility] Comment on above: SN MISSED VISIT Start: 04-17-2023 Home visit Sharla Paulino [facility] Comment on above: WATER USE INSPECTOR MISSED VISIT Start: 04-15-2023 End: 04-15-2023 Home visit Tiny Arias [facility] Comment on above: CASE COMMUNICATION SN HH ROUTINE VISIT RETANA ROUTINE VISIT Start: 04-14-2023 End: 04-14-2023 Home visit Carolina Boston [facility] Comment on above: WATER USE INSPECTOR HH ROUTINE Start: 04-14-2023 End: 04-14-2023 Home visit Nikko Pratt [facility] Comment on above: SUPERVISOR KOSHER DIETARY SERVICE ROUTINE VISIT OT INITIAL EVALUATIO N Start: 04-10-2023 Home visit Cece Colin [facility] Comment on above: CASE COMMUNICATION Start: 04-09-2023 End: 04-09-2023 Home visit Carolina Boston PSA [facility] Comment on above: WATER USE INSPECTOR HH ROUTINE Start: 04-08-2023 End: 04-08-2023 Home visit Carlitos Lela Carrera OPTICAL DISPENSER [facility] Comment on above: OPTICAL DISPENSER HH ROUTINE Start: 04-08-2023 End: 04-08-2023 Home visit Lisa Padron PT [facility] Comment on above: PT INITIAL EVALUATIO N Start: 04-07-2023 Home visit Lisa Padron PT [facility] Comment on above: CASE COMMUNICATION WATER USE INSPECTOR MISSED VISIT Start: 04-01-2023 End: 04-01-2023 Home visit Kassidy Wick RN [facility] Comment on above: SN HH OASIS START OF CARE Start: 03-31-2023 ambulatory [facility] Start: 03-30-2023 End: 04-22-2023 ambulatory [facility] Start: 03-29-2023 End: 03-30-2023 Emergency department patient visit Ko Aaron MD Work Phone: [facility] Start: 02-17-2023 End: 02-20-2023 Evaluation and management of inpatient Hayde Saira Pickering DO Work Phone: [facility] Surgical [facility] [place] Start: 02-09-2023 End: 02-09-2023 Office outpatient new 20 minutes Josué Christianson DO Work Phone: [facility] Comment on above: Strain of right hams tring, initial encounter (Primary Dx); Strain of right knee, initial encounter; Other specified diabetes mellitus with other specified complication, unspecified whether joint terminal attack controller insulin use (HCC) Start: 02-04-2023 Orders Only Josué Christianson DO Work Phone: [facility] Comment on above: Right knee pain, uns pecified chronicity (Primary Dx) Start: 12-12-2022 ambulatory No Doctor Facility:[facility] Start: 10-29-2022 End: 11-02-2022 Evaluation and management of inpatient Jacob Damon Facility:[facility] Start: 10-21-2022 Evaluation and management of inpatient RAFAELA BURKETT . Facility: Start: 10-11-2022 End: 10-11-[address] DOCTOR ARREGUIN Facility: Start: 10-07-2022 Emergency department patient visit UNKNOWN PROVIDER Facility:[facility] Start: 10-06-2022 End: 10-07-2022 Emergency department patient visit UNKNOWN PROVIDER Facility:[facility] Start: 10-06-2022 End: 10-07-2022 Emergency department patient visit Jocelyn Bowen MD Work Phone: [facility] Medicine Comment on above: Chart (Transfer from [place] for MRI) Start: 10-06-2022 End: 10-06-2022 Emergency department patient visit Preston Lugo [facility] Start: 09-18-2022 End: 09-18-2022 ambulatory YESENIA ZAMUDIO . Facility: Start: 09-12-2022 End: 09-15-2022 Evaluation and management of inpatient Pepe Echols [facility] Start: 09-12-2022 End: 09-12-2022 ambulatory Shameka Romero Facility:[facility] Start: 09-12-2022 End: 09-12-2022 Admission to same day surgery center INFORMATION ASSURANCE ANALYST-C Laurent Somc Work Phone: [facility] [place] Start: 09-12-2022 End: 09-12-2022 ambulatory INFORMATION ASSURANCE ANALYST-C Kip W Soviruma Work Phone: [facility] Work Phone: Start: 09-09-2022 End: 09-09-2022 ambulatory SANTOS VELEZ . Facility:[facility] Start: 09-07-2022 End: 09-07-[address] DOCTOR ARREGUIN Facility: Start: 09-02-2022 End: 09-02-2022 ambulatory Shameka Romero Other [facility] Other Start: 09-02-2022 Telephone encounter Shameka Duong [facility] Start: 08-29-2022 End: 08-29-2022 Patient encounter procedure LAURENT FRANCO [facility] Start: 08-20-2022 End: 08-22-2022 Evaluation and management of inpatient Kip Cassandra Somc Facility:[facility] Start: 08-20-2022 End: 08-22-2022 Evaluation and management of inpatient INFORMATION ASSURANCE ANALYST-C Laurent Franco Work Phone: [facility] [facility] Work Phone: Start: 08-20-2022 End: 08-22-2022 Evaluation and management of inpatient INFORMATION ASSURANCE ANALYST-C Tobyp Salvador Work Phone: [facility] Work Phone: Start: 08-20-2022 observation encounter INFORMATION ASSURANCE ANALYST-C Laurent Franco Work Phone: [facility] Work Phone: Start: 08-19-2022 End: 08-19-2022 Emergency department patient visit Santos Velez [facility] Start: 08-14-2022 ambulatory JULIA CHAPA . Facility: [facility] Start: 08-02-2022 End: 08-06-2022 Evaluation and management of inpatient DR POLO MILTON Facility:[facility] Start: 07-30-2022 End: 07-30-2022 ambulatory KHAADR ROQUE . Facility:[facility] Start: 07-10-2022 End: 07-11-2022 ambulatory YESENIA ZAMUDIO . Facility:[facility] Start: 06-21-2022 End: 06-21-[address] ROBERT LUX . Facility:[facility] Start: 06-11-2022 End: 06-12-2022 ambulatory RADHA DIAS Facility:[facility] Start: 06-02-2022 End: 01-09-2023 Emergency department patient visit Bridgett Noriegaari [facility] Start: 05-15-2022 End: 05-15-2022 Emergency department patient visit Santos Velez [facility] Start: 04-20-2022 End: 04-21-2022 ambulatory RADHA DIAS Facility:[facility] Start: 04-06-2022 End: 04-09-2022 Evaluation and management of inpatient Ashutosh MENARD [facility] Start: 03-31-2022 End: 03-31-2022 ambulatory YESENIA ZAMUDIO . Facility:[facility] Start: 03-04-2022 End: 03-06-[address] DOCTOR ARREGUIN Facility:[facility] Start: 02-27-2022 End: 02-27-2022 Emergency department patient visit Gui Gilmar [facility] Start: 02-21-2022 End: 02-21-2022 Emergency department patient visit Santos Velez [facility] Start: 02-17-2022 End: 02-18-[address] MICHI Pollock Facility:[facility] Start: 02-06-2022 End: 02-06-[address] POLO MILTON Facility:[facility] Start: 01-24-2022 End: 01-24-2022 Emergency department patient visit Preston Lugo [facility] Start: 01-09-2022 End: 01-09-2022 Observation Juan GONZALEZ [facility] Start: 01-01-2022 End: 01-02-2022 ambulatory CARISA STILES Facility:[facility] Start: 01-01-2022 End: 01-01-2022 Patient encounter procedure Breanna Gu [facility] Primary Care Start: 12-12-2021 End: 12-12-2021 Patient encounter procedure Breanna Gu [facility] Primary Care Start: 12-08-2021 End: 12-08-2021 Emergency department patient visit CEM MARIO [facility] Start: 12-08-2021 End: 12-08-2021 Emergency department patient visit Antoine Sosa MD Work Phone: [facility] ED Comment on above: Other insomnia (Prim margoth Dx) Start: 12-08-2021 End: 12-08-2021 Emergency department patient visit Santos Moreno [facility] Start: 12-04-2021 End: 12-04-[address] DOCTOR ARREGUIN Facility:[facility] Start: 12-02-2021 End: 12-02-2021 Patient encounter procedure Breanna Gu [facility] Primary Care Start: 11-28-2021 End: 11-28-[address] DOCTOR ARREGUIN Facility:[facility] Start: 11-27-2021 End: 11-27-2021 Patient encounter procedure Breanna Gu [facility] Primary Care Start: 11-04-2021 End: 11-06-2021 Evaluation and management of inpatient Ahmad Moussawi [facility] Start: 10-30-2021 End: 10-30-2021 Lab Drop off Breanna Gu [facility] Start: 10-10-2021 End: 02-01-2022 Pre-admission assessment Nancy GUTIERREZ [facility] Start: 10-09-2021 End: 10-09-2021 Emergency department patient visit Santos Velez [facility] Start: 10-03-2021 End: 10-03-2021 Patient encounter procedure Breanna Gu [facility] Start: 09-30-2021 End: 09-30-2021 Patient encounter procedure Breanna Gu [facility] Primary Care Start: 09-30-2021 End: 09-30-2021 Preprocedural examination done Breanna Gu [facility] Primary Care Start: 09-27-2021 End: 09-27-2021 Patient encounter procedure Soto Box [facility] Start: 09-02-2021 End: 11-21-2021 Pre-admission assessment Nancy GUTIERREZ [facility] Start: 09-02-2021 End: 09-02-2021 Patient encounter procedure Kirk Abbott [facility] Start: 08-29-2021 End: 08-29-2021 Patient encounter procedure Breanna Gu [facility] Start: 06-14-2021 End: 06-14-2021 ambulatory Herlinda June Other [facility] Other Start: 06-14-2021 Office outpatient vi sit 15 minutes Herlinda June [facility] Start: 08-02-2020 End: 08-02-2020 Orders Only Daniel Baxter Work Phone: [facility] Start: 06-03-2020 End: 06-05-2020 Evaluation and management of inpatient BREANNA NORIEGA [facility] Start: 06-03-2020 Critical care ill/injured patient init 30-74 min Ko Hankins Work Phone: [facility] Start: 06-03-2020 End: 06-05-2020 Evaluation and management of inpatient Ko Hankins Work Phone: [address] Comment on above: Type 2 diabetes chelly itus with left diabetic foot infection (HCC) (Primary Dx); Diabetic infection of left foot (HCC); Abscess of chin Start: 08-10-2019 End: 08-11-2019 Emergency department patient visit AMBROCIO CHAVEZ Facility:[facility] Start: 11-29-2018 End: 11-29-2018 Patient encounter procedure Shameka Baum [facility] Start: 09-07-2018 End: 09-09-2018 Evaluation and management of inpatient Shameka Baum [facility] Start: 07-29-2018 Registered Recurring Shameka [facility] Start: 07-23-2018 End: 08-31-2018 Discharged Recurring Shameka [facility] Start: 06-25-2018 End: 06-25-2018 Patient encounter procedure NONE FIDELIAAN Facility: Start: 05-04-2018 End: 05-04-2018 Patient encounter procedure Shameka Baum [facility] Start: 09-01-2017 End: 09-02-2017 Emergency department patient visit CEM MARIO [facility] Start: 07-17-2017 End: 07-23-2017 Ambulatory BEN DE JESUS [facility] Start: 06-26-2017 End: 06-26-2017 Emergency department patient visit Michi San Work Phone: [facility] Start: 06-23-2017 End: 06-23-2017 [facility] Start: 02-16-2017 End: 02-16-2017 [facility] Start: 02-09-2017 End: 02-09-2017 Departed Referred Shameka Baum [facility] Start: 01-16-2016 End: 01-16-2016 Admission to day surgery Shameka Baum [facility] Start: 10-02-2012 End: 10-02-2012 Emergency department [facility] Start: 04-23-2012 End: 04-23-2012 Departed Referred Shameka Baum [facility] Start: 12-23-2009 End: 12-23-2009 Departed Referred Shameka Baum [facility] Start: 12-21-2002 End: 12-21-2002 Emergency department [facility] Start: 08-25-2002 End: 08-25-2002 Emergency department [facility] Start: 06-27-2002 End: 06-27-2002 Patient encounter procedure [facility] Start: 05-08-2002 End: 05-08-2002 Emergency department patient visit Shameka Baum [facility] Start: 10-25-2001 End: 10-25-2001 Patient encounter procedure Shameka Baum [facility] Start: 10-27-1999 End: 10-27-1999 Emergency department patient visit Shameka Baum [facility] Start: 09-10-1999 End: 09-10-1999 Emergency department patient visit Shameka Baum [facility] Procedures Date Procedure Procedure Detail Performing Clinician Start: 08-02-2024 Comprehensive metabolic panel Stephany Pelayo PA-C Work Phone: Start: 08-02-2024 Lipid panel Stephany Pelayo PA-C Work Phone: Start: 04-29-2024 Glucose measurement Harshad Rizzo MD Work Phone: Start: 04-29-2024 Glucose measurement [facility] Work Phone: Start: 04-29-2024 Renal function panel Harshad Rizzo MD Work Phone: Start: 04-28-2024 Glucose measurement [facility] Work Phone: Start: 04-28-2024 Glucose measurement [facility] Work Phone: Start: 04-28-2024 Glucose measurement [facility] Work Phone: Start: 04-28-2024 Glucose measurement [facility] Work Phone: Start: 04-28-2024 Renal function panel Harshad Rizzo MD Work Phone: Start: 04-27-2024 Glucose measurement [facility] Work Phone: Start: 04-27-2024 Glucose measurement [facility] Work Phone: Start: 04-27-2024 Glucose measurement [facility] Work Phone: Start: 04-27-2024 Glucose measurement [facility] Work Phone: Start: 04-27-2024 Glucose measurement [facility] Work Phone: Start: 04-27-2024 Renal function panel Harshad Rizzo MD Work Phone: Start: 04-27-2024 Glucose measurement Generic [facility] Work Phone: Start: 04-26-2024 Radex foot complete minimum 3 views Jacoby Dooley MD Work Phone: Start: 04-26-2024 Basic metabolic panel calcium total Jacoby Dooley MD Work Phone: Start: 04-26-2024 C-reactive protein Jacoby Dooley MD Work Phone: Start: 04-26-2024 DARK GREEN TOP Jacoby Dooley MD Work Phone: Start: 04-26-2024 LAVENDER TOP Jacoby Dooley MD Work Phone: Start: 04-26-2024 LIGHT BLUE TOP Jacoby Dooley MD Work Phone: Start: 04-26-2024 LIGHT GREEN TOP Jacoby Dooley MD Work Phone: Start: 04-26-2024 MINT GREEN TOP Jacoby Dooley MD Work Phone: Start: 04-26-2024 RAINBOW DRAW Jacoby Dooley MD Work Phone: Start: 04-04-2024 Renal function panel Julia Hendrix DO Work Phone: Start: 04-03-2024 Renal function panel Julia Hendrix DO Work Phone: Start: 04-02-2024 Glucose measurement Generic [facility] Work Phone: Start: 04-02-2024 Renal function panel Julia Hendrix DO Work Phone: Start: 04-01-2024 Glucose measurement Generic [facility] Work Phone: Start: 04-01-2024 Radex foot complete minimum 3 views Shameka Castillo DPM Work Phone: Start: 04-01-2024 End: 04-01-2024 Cul bact xcpt urine blood/stool aerobic isol Shameka Castillo DPM Work Phone: Start: 04-01-2024 End: 04-01-2024 Amputation toe metatarsophalangeal joint Shameka Timothy Castillo DPM Work Phone: Start: 04-01-2024 Glucose measurement [facility] Work Phone: Start: 04-01-2024 Renal function panel Julia Hendrix DO Work Phone: Start: 03-31-2024 Ct lower extremity w/o contrast material Shameka Foxneel Castillo DPM Work Phone: Start: 03-31-2024 Ct abdomen & pelvis w/o contrast material Leticia Rajput MD Work Phone: Start: 03-31-2024 Renal function panel Julia Hendrix DO Work Phone: Start: 03-30-2024 Glucose measurement [facility] Work Phone: Start: 03-30-2024 Glucose measurement [facility] Work Phone: Start: 03-30-2024 Glucose measurement [facility] Work Phone: Start: 03-30-2024 Glucose measurement [facility] Work Phone: Start: 03-30-2024 Renal function panel Julia Simeon Work Phone: Start: 03-29-2024 Glucose measurement [facility] Work Phone: Start: 03-29-2024 Glucose measurement [facility] Work Phone: Start: 03-29-2024 End: 03-29-2024 Glucose measurement [facility] Work Phone: Start: 03-29-2024 Glucose measurement [facility] Work Phone: Start: 03-29-2024 Renal function panel Julia Hendrix DO Work Phone: Start: 03-28-2024 Glucose measurement [facility] Work Phone: Start: 03-28-2024 Glucose measurement [facility] Work Phone: Start: 03-28-2024 Glucose measurement [facility] Work Phone: Start: 03-28-2024 Glucose measurement [facility] Work Phone: Start: 03-28-2024 Renal function panel Julia Hendrix DO Work Phone: Start: 03-27-2024 Glucose measurement [facility] Work Phone: Start: 03-27-2024 Us retroperitoneal real time w/image complete Misha Serrato MD Work Phone: Start: 03-27-2024 Glucose measurement [facility] Work Phone: Start: 03-27-2024 Glucose measurement [facility] Work Phone: Start: 03-27-2024 Glucose measurement [facility] Work Phone: Start: 03-27-2024 End: 03-27-2024 Radiologic exam chest single view Julia aguilarselwyn DO Work Phone: Start: 03-27-2024 Glucose measurement [facility] Work Phone: Start: 03-27-2024 Comprehensive metabolic panel Jennifer Lopez CNP Work Phone: Start: 03-27-2024 Glucose measurement [facility] Work Phone: Start: 03-26-2024 Basic metabolic panel calcium total John Chaparro MD Work Phone: Start: 03-26-2024 Glucose measurement [facility] Work Phone: Start: 03-26-2024 Glucose measurement [facility] Work Phone: Start: 03-26-2024 Glucose measurement [facility] Work Phone: Start: 03-26-2024 End: 03-26-2024 Glucose measurement [facility] Work Phone: Start: 03-26-2024 Creatinine blood Lisa Hammond [facility],PharmD Start: 03-26-2024 LAVENDER TOP Jennifer Lopez FUR[employer] SALESPERSON Work Phone: Start: 03-26-2024 RAINBOW DRAW Jennifer Lopez [employer] SALESPERSON Work Phone: Start: 03-25-2024 Glucose measurement [facility] Work Phone: Start: 03-25-2024 Glucose measurement [facility] Work Phone: Start: 03-25-2024 Assay of lactate Ani Gonzales [facility] Work Phone: Start: 03-25-2024 Cul bact xcpt urine blood/stool aerobic isol Avila Rajan PA-C Work Phone: Start: 03-25-2024 Glucose measurement Generic [facility] Work Phone: Start: 03-25-2024 Assay of lactate Ani Gonzales [facility] Work Phone: Start: 03-25-2024 Electrocardiogram Generic [facility] Work Phone: Start: 03-25-2024 End: 03-25-2024 Basic metabolic panel calcium total Imran Malcolm Smith MD Work Phone: Start: 03-25-2024 End: 03-25-2024 Glucose measurement Generic [facility] Work Phone: Start: 03-25-2024 End: 03-25-2024 Glucose measurement Ko Aaron MD Work Phone: Start: 03-25-2024 Culture bacterial quanttative colony count urine Ani Gonzales [employer] Work Phone: Start: 03-25-2024 Ecg routine ecg w/least 12 lds trcg only w/o i&r Ani Gonzales [employer] Work Phone: Start: 03-24-2024 Comprehensive metabolic panel Ani Gonzales [employer] Work Phone: Start: 03-24-2024 Gases blood ph direct jordin xcpt pulse oximitry Ani Gonzales [employer] Work Phone: Start: 03-24-2024 GOLD TOP Ko Aaron MD Work Phone: Start: 03-24-2024 Hepatic function panel Ani Isaacalexagerson [employer] SAL[employer]ERSON Work Phone: Start: 03-24-2024 LIGHT BLUE TOP Ko Aaron MD Work Phone: Start: 03-24-2024 OBTAIN VENOUS BLOOD GASES AND PERFORM Ani Correia Kaleighgerson [employer] SAL[employer]ERSON Work Phone: Start: 03-24-2024 RAINBOW DRAW Ko Aaron MD Work Phone: Start: 03-24-2024 Radex toe minimum 2 views Ko Castaneda MD Work Phone: Start: 02-02-2024 Follow-up visit Follow-up JIM VELEZ Start: 01-18-2024 End: 01-18-2024 Glucose measurement Generic [facility] Work Phone: Start: 01-18-2024 Renal function panel Estrella Lainez PA-C Work Phone: Start: 01-17-2024 Glucose measurement [facility] Work Phone: Start: 01-17-2024 Glucose measurement [facility] Work Phone: Start: 01-17-2024 Glucose measurement [facility] Work Phone: Start: 01-17-2024 Ct head/brain w/o contrast material Ruthy Dong MD Work Phone: Start: 01-17-2024 Glucose measurement [facility] Work Phone: Start: 01-17-2024 Glucose measurement [facility] Work Phone: Start: 01-17-2024 Renal function panel Estrella Lainez PA-C Work Phone: Start: 01-16-2024 Glucose measurement [facility] Work Phone: Start: 01-16-2024 Urnls dip stick/tablet reagent auto microscopy Mary Lou Gradyee Anna [employer] SALESPERSON Work Phone: Start: 01-16-2024 Glucose measurement [facility] Work Phone: Start: 01-16-2024 Us retroperitoneal real time w/image complete Mary Lou Castillo [employer] SALESPERSON Work Phone: Start: 01-16-2024 Glucose measurement [facility] Work Phone: Start: 01-16-2024 Glucose measurement [facility] Work Phone: Start: 01-16-2024 Renal function panel Estrella Lainez PA-C Work Phone: Start: 01-15-2024 End: 01-15-2024 Glucose measurement [facility] Work Phone: Start: 01-15-2024 Renal function panel Estrella Lainez PA-C Work Phone: Start: 01-14-2024 Urnls dip stick/tablet reagent auto microscopy Ruthy Dong MD Work Phone: Start: 01-14-2024 Glucose measurement [facility] Work Phone: Start: 01-14-2024 Glucose measurement [facility] Work Phone: Start: 01-14-2024 Glucose measurement [facility] Work Phone: Start: 01-14-2024 Glucose measurement [facility] Work Phone: Start: 01-14-2024 Renal function panel sEtrella Lainez PA-C Work Phone: Start: 01-13-2024 Glucose measurement [facility] Work Phone: Start: 01-13-2024 End: 01-13-2024 Glucose measurement [facility] Work Phone: Start: 01-13-2024 Ct lower extremity w/o contrast material Shameka Aguirre Jonathan DPM Work Phone: Start: 01-13-2024 Glucose measurement [facility] Work Phone: Start: 01-13-2024 Glucose measurement [facility] Work Phone: Start: 01-13-2024 Blood count complete automated Estrella Bailey PA-C Work Phone: Start: 01-13-2024 Renal function panel Estrella Lainez PA-C Work Phone: Start: 01-12-2024 Ecg routine ecg w/least 12 lds trcg only w/o i&r Mk Leigh MD Work Phone: Start: 01-12-2024 Glucose measurement Generic [facility] Work Phone: Start: 01-12-2024 Radex foot complete minimum 3 views Matheus Chavira PA-C Work Phone: Start: 01-12-2024 Basic metabolic panel calcium total Matheus Chavira PA-C Work Phone: Start: 01-12-2024 C-reactive protein Matheus Chavira PA-C Work Phone: Start: 01-12-2024 LAVENDER TOP Jacoby Doloey MD Work Phone: Start: 01-12-2024 LIGHT BLUE TOP Jcaoby Dooley MD Work Phone: Start: 01-12-2024 LIGHT GREEN TOP Jacoby Dooley MD Work Phone: Start: 01-12-2024 MINT GREEN TOP Jacoby Dooley MD Work Phone: Start: 01-12-2024 RAINBOW DRAW Jacoby oDoley MD Work Phone: Start: 12-01-2023 Iaadiadoo influenza Stephany Pelayo PA-C Work Phone: Start: 12-01-2023 Sars-cov-2 detection by dna/rna Stephany Pelayo PA-C Work Phone: Start: 11-09-2023 Fundus photography w/interpretation & report Anders London MD Work Phone: Start: 11-09-2023 Ophthalmic ultrasound dx b-scan w/wo a-scan Anders London MD Work Phone: Start: 09-03-2023 Microalbumin [Mass/volume] in Urine by Test strip Maye Ramirez LPN Start: 08-26-2023 End: 08-26-2023 Radiologic examination tibia & fibula 2 views Floyd Mercado MD Work Phone: Start: 03-30-2023 Glucose measurement Todd Hennessy MD Work Phone: Start: 03-30-2023 Glucose measurement Generic [facility] Work Phone: Start: 03-30-2023 Renal function panel Estrella Lainez PA-C Work Phone: Start: 03-29-2023 Glucose measurement Generic [facility] Work Phone: Start: 03-29-2023 Assay of troponin quantitative Ko Aaron MD Work Phone: Start: 03-29-2023 Electrocardiogram Ko Aaron MD Work Phone: Start: 03-29-2023 Glucose measurement Generic [facility] Work Phone: Start: 03-29-2023 Comprehensive metabolic panel Ko Aaron MD Work Phone: Start: 03-29-2023 Hepatic function panel Ko Aaron MD Work Phone: Start: 03-29-2023 LIGHT BLUE TOP Ko Aaron MD Work Phone: Start: 03-29-2023 LIGHT GREEN TOP Ko Aaron MD Work Phone: Start: 03-29-2023 RAINBOW DRAW Ko Aaron MD Work Phone: Start: 03-29-2023 Ct thorax w/o contrast material Ko Aaron MD Work Phone: Start: 03-29-2023 Radiologic exam chest single view Ko Aaron MD Work Phone: Start: 02-20-2023 Glucose measurement [facility] Work Phone: Start: 02-20-2023 Basic metabolic panel calcium total Harshad Rizzo MD Work Phone: Start: 02-20-2023 Glucose measurement [facility] Work Phone: Start: 02-19-2023 Glucose measurement [facility] Work Phone: Start: 02-19-2023 Glucose measurement [facility] Work Phone: Start: 02-19-2023 Glucose measurement [facility] Work Phone: Start: 02-19-2023 Glucose measurement [facility] Work Phone: Start: 02-19-2023 End: 02-19-2023 Culture bacterial blood aerobic w/id isolates Harshad Rizzo MD Work Phone: Start: 02-19-2023 End: 02-19-2023 Basic metabolic panel calcium total Harshad Rizzo MD Work Phone: Start: 02-19-2023 Glucose measurement [facility] Work Phone: Start: 02-18-2023 Glucose measurement [facility] Work Phone: Start: 02-18-2023 Echo tthrc r-t 2d w/wom-mode compl spec&colr d Harshad Rizzo MD Work Phone: Start: 02-18-2023 Glucose measurement Generic [facility] Work Phone: Start: 02-18-2023 Glucose measurement Generic [facility] Work Phone: Start: 02-18-2023 Myocardial spect multiple studies Andrea King MD Work Phone: Start: 02-18-2023 Glucose measurement Generic [facility] Work Phone: Start: 02-18-2023 Assay of troponin quantitative Ambrosio Butcher MD Work Phone: Start: 02-18-2023 Electrocardiogram Generic [facility] Work Phone: Start: 02-18-2023 End: 02-18-2023 Basic metabolic panel calcium total Ambrosio Butcher MD Work Phone: Start: 02-18-2023 Glucose measurement Generic [facility] Work Phone: Start: 02-18-2023 Assay of troponin quantitative Ambrosio Butcher MD Work Phone: Start: 02-17-2023 Ct thorax w/o contrast material Hayde Pickering DO Work Phone: Start: 02-17-2023 Ct head/brain w/o contrast material Hayde Pickering DO Work Phone: Start: 02-17-2023 Urnls dip stick/tablet reagent auto microscopy Hayde Pickering DO Work Phone: Start: 02-17-2023 Comprehensive metabolic panel Hayde Pickering DO Work Phone: Start: 02-17-2023 LIGHT BLUE TOP Hayde Pickering DO Work Phone: Start: 02-17-2023 LIGHT GREEN TOP Hayde Pickering DO Work Phone: Start: 02-17-2023 RAINBOW DRAW Hayde Pickering DO Work Phone: Start: 02-17-2023 Radiologic exam chest single view Hayde Pickering DO Work Phone: Start: 02-17-2023 Ecg routine ecg w/least 12 lds w/i&r Hyade Pickering DO Work Phone: Start: 10-07-2022 Ct cervical spine w/contrast material Nikko Kendrick DO Work Phone: Start: 10-07-2022 CT Thoracic and lumbar spine W contrast IV Nikko Kendrick DO Work Phone: Start: 10-06-2022 Prothrombin time Keyla Clay MD Work Phone: Start: 10-06-2022 Blood typing, ABO, Rho(D) and RBC antibody screening Nikko Kendrick DO Work Phone: Start: 10-06-2022 Assay of magnesium Nikko Kendrick DO Work Phone: Start: 10-06-2022 C-reactive protein Nikko Kendrick DO Work Phone: Start: 08-20-2022 Blood culture for bacteria, including anaerobic screen INFORMATION ASSURANCE ANALYST-C Tobyp Soviak Work Phone: Start: 08-20-2022 Pulse volume recorder pneumoplethysmography INFORMATION ASSURANCE ANALYST-C Kip Soviak Work Phone: Start: 08-19-2022 X-ray of left foot INFORMATION ASSURANCE ANALYST-C Kip Soviak Work Phone: Start: 08-07-2022 Microscopic examination of blood, culture YESENIA ZAMUDIO . Comment on above: Performed By: #### [id number] ####Mary Kay Rivera [place] [id number] Suresh Start: 12-08-2021 Drug screen, qualitate/multi Antoine todd MD Work Phone: Start: 12-08-2021 Urinalysis microscopic only Antoine narayanna MD Work Phone: Start: 12-08-2021 Urnls dip stick/tablet rgnt auto w/o microscopy Antoine Sosa MD Work Phone: Start: 06-05-2020 Glucose [Mass/volume] in Blood Bridger villeda Work Phone: Start: 06-05-2020 Aerobic microbial culture Lisa Hendrickson Work Phone: Start: 06-05-2020 Glucose [Mass/volume] in Blood Bridger villeda Work Phone: Start: 06-05-2020 Glucose [Mass/volume] in Blood Bridger villeda Work Phone: Start: 06-05-2020 Basic metabolic 2000 panel - Serum or Plasma Bridger Garner Work Phone: Start: 06-05-2020 Complete blood count (hemogram) panel - Blood by Automated count Bridger Garner Work Phone: Start: 06-05-2020 Magnesium [Mass/volume] in Serum or Plasma Bridger Garner Work Phone: Start: 06-05-2020 Thyrotropin [Units/volume] in Serum or Plasma by Detection limit <= 0.005 mIU/L Bridger Garner Work Phone: Start: 06-05-2020 Lactate [Moles/volume] in Serum or Plasma Bridger Marchon Work Phone: Start: 06-04-2020 Glucose [Mass/volume] in Blood Bridger villeda Work Phone: Start: 06-04-2020 Glucose [Mass/volume] in Blood Bridger villeda Work Phone: Start: 06-04-2020 Glucose [Mass/volume] in Blood Breanna Bolivar Work Phone: Start: 06-04-2020 Glucose [Mass/volume] in Blood Breanna Bolivar Work Phone: Start: 06-04-2020 Basic metabolic 2000 panel - Serum or Plasma Breanna Bolivar Work Phone: Start: 06-04-2020 Complete blood count with white cell differential, automated Breanna Bolivar Work Phone: Start: 06-04-2020 Complete blood count with white cell differential, manual Breanna Bolivar Work Phone: Start: 06-04-2020 Hemoglobin A1c/Hemoglobin.total in Blood Jessica Carvalho Start: 06-04-2020 Magnesium [Mass/volume] in Serum or Plasma Breanna Bolivar Work Phone: Start: 06-03-2020 Assay of lactate Ko Hankins Work Phone: Start: 06-03-2020 Glucose [Mass/volume] in Blood Breanna Bolivar Work Phone: Start: 06-03-2020 COVID-19, MOLECULAR Ko Hankins Work Phone: Start: 06-03-2020 Ct lower extremity w/o contrast material Ko Hankins Work Phone: Start: 06-03-2020 Bacteria identified in Blood by Culture Ko Hankins Work Phone: Start: 06-03-2020 Basic metabolic 1998 panel - Serum or Plasma Ko Hankins Work Phone: Start: 06-03-2020 Complete blood count with white cell differential, automated Ko Hankins Work Phone: Start: 06-03-2020 Complete blood count with white cell differential, manual Ko Hankins Work Phone: Start: 06-03-2020 Lactate [Moles/volume] in Serum or Plasma Ko Hankins Work Phone: Start: 06-03-2020 LIGHT BLUE TOP Ko Hankins Work Phone: Start: 06-03-2020 LIGHT GREEN TOP Ko Hankins Work Phone: Start: 06-03-2020 RAINBOW DRAW Ko Hankins Work Phone: Start: 12-02-2018 Arthroscopy of ankle Breanna Gu Comment on above: Left achilles tendon tennex procedure Left achilles tendon tennex procedure Start: 09-06-2018 CT head/brain wo con Shameka Baum Start: 09-06-2018 Plain chest X-ray Shameka Baum Start: 07-14-2018 Aerobic microbial culture Shameka Baum Start: 09-01-2017 Microscopic urinalysis KEYLA PRATT Start: 09-01-2017 Urinalysis KEYLA PRATT Start: 09-01-2017 BASIC METABOLIC PANEL KEYLA PRATT Start: 09-01-2017 BLOOD GAS, VENOUS KEYLA PRATT Start: 09-01-2017 Dup-scan xtr veins complete bilateral study KEYLA PRATT Start: 09-01-2017 Radiologic exam chest 2 views ROBEL PRATT Start: 09-01-2017 BASIC METABOLIC PANEL KEYLA PRATT Start: 09-01-2017 BETA-HYDROXYBUTYRATE KEYLA PRATT Start: 09-01-2017 CBC KEYLA PRATT Start: 09-01-2017 D-DIMER, QUANTITATIVE KEYLA PRATT Start: 09-01-2017 LITHIUM LEVEL KEYLA PRATT Start: 09-01-2017 MAGNESIUM KEYLA PRATT Start: 09-01-2017 TROPONIN KEYLA PRATT Start: 09-01-2017 AUTOMATION ENGINEERING TECHNICIAN KEYLA PRATT Start: 09-01-2017 INSERT PERIPHERAL IV KEYLA PRATT Start: 09-01-2017 EKG 12-LEAD KEYLA PRATT Start: 07-23-2017 Division of fascia Breanna Gu Comment on above: PLANTAR FASCIOTOMY ENDOSCOPIC, Left. wit h ankle lateral stabilization. PLANTAR FASCIOTOMY E NDOSCOPIC, Left. with ankle lateral stabilization. Start: 06-23-2017 Radiography of cervical spine Shameka Carol samaniego Start: 02-16-2017 Microscopic urinalysis KEYLA JENNY Start: 02-16-2017 UA W/REFLEX CULTURE KEYLA JENNY Start: 02-16-2017 URINE CULTURE KEYLA JENNY Start: 02-16-2017 TROPONIN KEYLA JENNY Start: 02-16-2017 Chest x-ray 1 view frontal JOSE CANAND Lauren MERCADO Start: 02-16-2017 INSERT PERIPHERAL IV KEYLA JENNY Start: 02-16-2017 EKG 12-LEAD KEYLA JENNY Start: 02-16-2017 APTT KEYLA JENNY Start: 02-16-2017 BASIC METABOLIC PANEL KEYLA JENNY Start: 02-16-2017 BRAIN NATRIURETIC PEPTIDE KEYLA CARMEN DICKINSON Start: 02-16-2017 CBC WITH AUTO DIFFERENTIAL KEYLA MERCADO Start: 02-16-2017 D-DIMER, QUANTITATIVE KEYAL JENNY Start: 02-16-2017 PROTIME-INR KEYLA JENNY Start: 02-16-2017 TROPONIN KEYLA JENNY Start: 01-24-2016 Right Plantar Fasciotomy Breanna Gu Start: 05-27-2012 Microalbumin [Mass/volume] in Urine by Test strip Ko Hankins Ankle Breanna Gu ankle surgery ORIF 3 Breanna Gu Comment on above: bilateral bilateral Cholecystectomy Breanna cline Colonoscopy Breanna Gu Dentition (body structure) K peace Gu Esophagogastroduodenoscopy K peace Gu Hysterectomy Breanna Gu insertion of Infusaport 4 Ka rubin Gu Comment on above: right chest right chest Laparoscopy Breanna Gu Loop electrosurgical excision procedure of cervix Breanna Gu pacemaker 5 Breanna Gu Comment on above: Jan 2012- [facility] Jan 2012- [facility] Structure of eye pro per (body structure) Breanna Gu Plan of Treatment Date Care Activity Detail Author Start: 02-22-2032 Tetanus vaccination [facility] Start: 2027 Shingles (RZV) Vaccine (1 of 2) Shingles (RZV) Vaccine (1 of 2) [facility] Start: 03-06-2027 Cholesterol [Mass/volume] in Serum or Plasma Cholesterol [facility] Start: 08-02-2025 Urine screening for protein eGFR Diabetes [facility] Start: 04-04-2025 Urine screening for protein eGFR Diabetes [facility] Start: 03-25-2025 Urine screening for protein eGFR Diabetes [facility] Start: 03-22-2025 Urine screening for protein eGFR Diabetes [facility] Start: 02-14-2025 COVID-19 Vaccine () COVID-19 Vaccine () [facility] Comment on above: Postponed from 01/24/2024 (Treatment Not Available) Start: 02-14-2025 COVID-19 Vaccine () COVID-19 Vaccine () [facility] Comment on above: Postponed from 01/24/2024 (Treatment Not Available) Start: 01-17-2025 Urine screening for protein eGFR Diabetes [facility] Start: 12-21-2024 End: 12-21-2024 Patient encounter procedure 12/21/2024 10:40 AM EDT Office Visit [facility] [place] [address] [place] [id number] Mihai Elizalde CNP [address] [place] [address] [facility] [place] Start: 12-12-2024 End: 12-12-2024 Patient encounter procedure 12/12/2024 3:30 PM EDT Office Visit [facility] [address] [facility] [place] [id number] Sahara Sanchez MD [address] [place] [address] [facility] Start: 12-05-2024 End: 12-05-2024 Patient encounter procedure 12/05/2024 2:20 PM EDT Office Visit [facility] [address] [facility] [place] [id number] Stephany Pelayo PA-C [address] [place] [address] [facility] Start: 12-04-2024 Diabetic foot examination Diabetic Foot Exam [facility] Start: 11-08-2024 Glaucoma screening Diabetic Eye Exam [facility] Start: 11-02-2024 Hemoglobin A1c measurement A1C [facility] Start: 10-28-2024 Urine screening for protein eGFR Diabetes [facility] Start: 10-11-2024 End: 10-11-2024 Patient encounter procedure 10/11/2024 2:30 PM EDT Office Visit [facility] [place] [address] Mery Robles MD [address] [place] [address] [facility] Start: 09-28-2024 End: 09-28-2024 Patient encounter procedure 09/28/2024 9:45 AM EDT Office Visit [facility] [place] [phone] Sahara Sanchez MD [address] [place] [address] [facility] Start: 09-27-2024 Urine screening for protein eGFR Diabetes [facility] Start: 09-23-2024 End: 09-23-2025 External Lab Urine Drug Screen External Lab Urine Drug Screen Lab Routine Lumbar radiculopathy Chronic pain syndrome Expected: 09/23/2024, Expires: 09/23/2025 [facility] Work Phone: Comment on above: Expected: 09/23/2024, Expires: Start: 09-23-2024 End: 09-23-2024 Patient encounter procedure 09/23/2024 10:30 AM EDT Office Visit [facility] [place] [address] [place] [address] Jim Velez, DO [address] [place] [address] [facility] [place] Start: 09-02-2024 History and physical examination, annual for health maintenance Wellness Visit [facility] Start: 09-02-2024 Screening for malignant neoplasm of colon Colorectal Cancer Screening/Monitoring [facility] Comment on above: Postponed from 1977 (Patient Refus ed) Start: 09-02-2024 Urine screening for protein Urine Microalbumin [facility] Start: 08-23-2024 End: 08-23-2024 Patient encounter procedure [facility] Start: 08-22-2024 End: 08-22-2024 Patient encounter procedure 08/22/2024 1:30 PM EDT Office Visit [facility] [address] [place] [address] Rafaela Medrano, FUR[employer] SALESPERSON [address] [place] [address] [facility] Start: 08-10-2024 End: 08-10-2024 Patient encounter procedure [facility] Start: 08-09-2024 End: 08-09-2024 Patient encounter procedure 08/09/2024 4:00 PM EDT Office Visit [facility] [place] [address] [place] [address] Jim Velez, DO [address] [place] [address] [facility] [place] Start: 07-28-2024 End: 07-28-2024 Patient encounter procedure 07/28/2024 2:20 PM EST Office Visit [facility] [facility] [address] [place] [address] Stephany Pelayo PA-C [address] [address] [facility] Start: 07-26-2024 End: 07-26-2024 ambulatory [facility] Start: 07-26-2024 End: 07-26-2024 Patient encounter procedure 07/26/2024 11:00 AM EST Office Visit [facility] [address] [place] [address] Stephany Pelayo PA-C [address] [address] [facility] Start: 07-20-2024 Urine screening for protein eGFR Diabetes [facility] Start: 07-08-2024 End: 07-08-2024 Patient encounter procedure 07/08/2024 8:50 AM EST Office Visit [facility] [address] [facility] [place] [address] Soto Box, DPM FACFAS [address] [place] [address] [facility] Start: 07-07-2024 End: 07-07-2024 Patient encounter procedure 07/07/2024 2:20 PM EST Office Visit [facility] [address] [place] [address] Stephany Pelayo PA-C [address] [address] [facility] Start: 07-05-2024 End: 07-05-2024 Patient encounter procedure 07/05/2024 8:20 AM EST Office Visit [facility] [address] [place] [address] Soto Box, DPM FACFAS [address] [facility] [place] [address] Arrived [facility] Comment on above: Arrived Start: 06-22-2024 Hemoglobin A1c measurement [facility] Start: 06-20-2024 End: 06-20-2024 Patient encounter procedure 06/20/2024 9:40 AM EST Office Visit [facility] Neurology [address] [place] [address] Virgen Campos MD [address] [place] [address] [facility] Neurology Start: 05-11-2024 End: 05-11-2024 ambulatory [facility] Endocrinology Start: 05-11-2024 End: 05-11-2024 Patient encounter procedure 05/11/2024 2:15 PM EST Office Visit [facility] Endocrinology [facility] [place] [address] Sahara Sanchez MD [address] [place] [address] [facility] Endocrinology Start: 05-11-2024 End: 05-11-2024 ambulatory [facility] Start: 05-11-2024 End: 05-11-2024 Patient encounter procedure 05/11/2024 10:15 AM EST Office Visit [facility] [address] [place] [id number] Ramiro Hale MD [address] [address] Discharge Disposition: Home [facility] Start: 05-06-2024 COVID-19 Vaccine () COVID-19 Vaccine () [facility] Comment on above: Postponed from 01/23/2023 (Patient Refus ed) Start: 05-06-2024 Hepatitis C screening Hepatitis C Screening [facility] Comment on above: Postponed from 1995 (Patient Refus ed) Start: 05-06-2024 HIV screening HIV Screening [facility] Comment on above: Postponed from 1992 (Patient Refus ed) Start: 05-06-2024 Screening for malignant neoplasm of cervix Pap Smear [facility] Comment on above: Postponed from 1998 (Patient Refus ed) Start: 05-05-2024 End: 05-05-2024 Patient encounter procedure 05/05/2024 11:40 AM EST Office Visit [facility] [place] [address] [place] [address] Mihai Elizalde, FURS SALESPERSON [address] [place] [address] [facility] [place] Start: 04-27-2024 End: 04-27-2024 ambulatory [facility] [place] Start: 04-27-2024 End: 04-27-2024 Patient encounter procedure 04/27/2024 3:40 PM EST Office Visit [facility] [place] [address] [place] [address] Mihai Elizalde, FURS SALESPERSON [address] [place] [address] [facility] [place] Start: 04-19-2024 End: 04-19-2024 Patient encounter procedure 04/19/2024 8:40 AM EST Office Visit [facility] [place] [address] [place] [address] Mihai Elizalde, FURS SALESPERSON [address] [place] [address] [facility] [place] Start: 04-14-2024 Diabetic foot examination Diabetic Foot Exam [facility] Start: 04-13-2024 Hemoglobin A1c measurement A1C [facility] Start: 04-01-2024 End: 04-01-2024 Patient encounter procedure 04/01/2024 11:00 AM EST Office Visit [facility] [address] [place] [address] Stephany Pelayo PA-C [address] [place] [address] [facility] Start: 03-22-2024 End: 03-22-2024 Patient encounter procedure 03/22/2024 11:00 AM EDT Office Visit [facility] [address] [facility] [place] [address] Stephany Pelayo PA-C [address] [place] [address] [facility] Start: 03-03-2024 End: 03-03-2024 Patient encounter procedure [facility] Primary Care Start: 03-01-2024 End: 03-01-2024 Patient encounter procedure 03/01/2024 11:30 AM EDT Office Visit [facility] Psych [address] [place] [address] Rosario Garcia MD [address] [place] [address] [facility] Psych Start: 02-17-2024 End: 02-17-2024 Patient encounter procedure 02/17/2024 1:40 PM EDT Office Visit [facility] Neurology [address] [place] [address] Virgen Campos MD [address] [place] [address] [facility] Neurology Start: 02-10-2024 End: 02-10-2024 Patient encounter procedure 02/10/2024 1:00 PM EDT Office Visit [facility] [address] [place] [address] Rafaela Medrano, BEATRIZ [address] [place] [address] [facility] Start: 02-02-2024 End: 02-02-2024 Patient encounter procedure 02/02/2024 4:00 PM EDT Office Visit [facility] [place] [address] [place] [address] Jim Velez DO [address] [place] [address] [facility] [place] Start: 01-28-2024 End: 01-28-2024 Patient encounter procedure 01/28/2024 2:00 PM EDT Office Visit [facility] Psych [address] [place] [address] Rosario Garcia MD [address] [place] [address] [facility] Psych Start: 01-27-2024 End: 01-27-2024 Patient encounter procedure 01/27/2024 1:30 PM EDT Office Visit [facility] [address] [place] [address] Rafaela Medrano, BEATRIZ [address] [place] [address] [facility] Start: 01-24-2024 COVID-19 Vaccine ( season) COVID-19 Vaccine ( season) [facility] Start: 01-24-2024 Influenza vaccination Influenza Vaccine (#1) [facility] Start: 01-19-2024 End: 01-19-2024 Patient encounter procedure 01/19/2024 11:30 AM EDT Office Visit [facility] Psych [address] [place] [address] Rosario Garcia MD [address] [place] [address] [facility] Psych Start: 01-15-2024 Hemoglobin A1c measurement A1C [facility] Start: 12-23-2023 End: 12-23-2023 ambulatory 12/23/2023 3:15 PM EDT Evaluation [facility] [address] [place] [address] Jim Velez DO [address] [place] [address] Mary Wells, NIKUNJ Discharge Disposition: Home [facility] Start: 12-22-2023 End: 12-22-2023 Patient encounter procedure 12/22/2023 2:00 PM EDT Office Visit [facility] Physician [facility]rology [address] [place] [address] Sharla Camara PA-C [address] [place] [address] [facility] Urology Start: 12-21-2023 End: 12-21-2023 Patient encounter procedure 12/21/2023 2:00 PM EDT Office Visit [facility] Neurology [address] [place] [address] Virgen Campos MD [address] [place] [address] [facility] Neurology Start: 12-14-2023 End: 12-14-2023 Patient encounter procedure 12/14/2023 10:00 AM EDT Office Visit [facility] Endocrinology [address] [place] [address] Sahara Sanchez MD [address] [place] [address] [facility] Endocrin[facility] Start: 12-08-2023 End: 12-08-2023 Patient encounter procedure 12/08/2023 2:00 PM EDT Office Visit [facility] [place] [address] [place] [address] Stephany Pelayo PA-C [address] [place] [address] Jim Velez DO [address] [place] [address] [facility] [place] Start: 12-03-2023 End: 12-03-2023 Patient encounter procedure 12/03/2023 2:00 PM EDT Office Visit [facility] [place] [address] [place] [address] Jim Velez, DO [address] [place] [address] [facility] [place] Start: 12-02-2023 End: 12-02-2023 Patient encounter procedure 12/02/2023 1:45 PM EDT Office Visit [facility] Endocrinology [address] [place] [address] Stephany Pelayo PA-C [address] [place] [address] Sahara Sanchez MD [address] [place] [address] [facility] Endocrinology Start: 11-19-2023 End: 11-19-2023 Patient encounter procedure 11/19/2023 12:40 PM EDT Office Visit [facility] Primary Care [address] [place] [address] Stephany Pelayo PA-C [address] [place] [address] [facility] Primary Care Start: 11-19-2023 End: 11-19-2023 ambulatory 11/19/2023 9:00 AM EDT Evaluation [facility] Ophthalmology [address] [facility] [place] [address] Stephany Pelayo PA-C [address] [place] [address] Karon Monzon DO [address] [facility] [place] [address] [facility]hthalmology Start: 10-13-2023 End: 10-13-2023 Patient encounter procedure 10/13/2023 11:20 AM EDT Office Visit [facility] Primary Care [address] [place] [address] Stephany Pelayo PA-C [address] [place] [address] [facility] Primary Care Start: 10-08-2023 End: 10-08-2023 Patient encounter procedure 10/08/2023 7:00 AM EDT Appointment [facility] EEG [address] [place] [address] Virgen Campos MD [address] [place] [address] [facility] EEG Start: 10-07-2023 End: 10-07-2023 Patient encounter procedure [facility] Psych Start: 10-03-2023 Glaucoma screening Diabetic Eye Exam [facility] Comment on above: Postponed from 1987 (Per Other [facility] Guidelines) Start: 09-16-2023 End: 09-16-2023 Patient encounter procedure 09/16/2023 1:00 PM EDT Office Visit [facility] Neurology [address] [place] [address] Virgen Campos MD [address] [place] [address] [facility] Neurology Start: 09-03-2023 End: 09-03-2023 Patient encounter procedure 09/03/2023 2:00 PM EDT Office Visit [facility] Primary Care [address] [place] [address] Stephany Pelayo PA-C [address] [place] [address] [facility] Primary Care Start: 08-19-2023 End: 08-19-2023 Patient encounter procedure 08/19/2023 2:00 PM EDT Office Visit [facility] Urology [address] [place] [address] Sharla Camara PA-C [address] [place] [address] [facility] Urology Start: 08-09-2023 Hemoglobin A1c measurement A1C [facility] Start: 08-03-2023 End: 08-03-2023 Patient encounter procedure 08/03/2023 2:30 PM EDT Initial consult [facility] Psych [address] [place] [address] Stephany Pelayo PA-C [address] [place] [address] Rosario Garcia MD [address] [place] [address] [facility] Start: 07-23-2023 Diabetic foot examination Diabetic Foot Exam [facility] Comment on above: Postponed from 1987 (Per Other [facility] Guidelines) Start: 07-03-2023 End: 07-03-2023 ambulatory 07/03/2023 9:00 AM EST Evaluation [facility] Ophthalmology [address] [place] [address] Stephany Pelayo PA-C [address] [place] [address] Karon Monzon, DO [address] [place] [address] [facility] Ophthalmology Start: 06-29-2023 Hemoglobin A1c measurement A1C [facility] Start: 06-29-2023 End: 06-29-2023 Patient encounter procedure 06/29/2023 10:00 AM EST Office Visit [facility] Cardiology [address] [place] [address] Dakota Edward MD [address] [place] [address] [facility] Cardiology Start: 06-23-2023 End: 06-23-2023 Patient encounter procedure 06/23/2023 8:15 AM EST Office Visit [facility] Endocrinology [address] [place] [address] Stephany Pelayo PA-C [address] [place] [address] Sahara Sanchez MD [address] [place] [address] [facility] Endocrinology Start: 06-22-2023 End: 06-22-2023 ambulatory 06/22/2023 2:30 PM EST Evaluation [facility] Ophthalmology [address] [place] [address] Karon Monzon, DO [address] [place] [address] [facility] Ophthalmology Start: 06-22-2023 End: 06-22-2024 Bacteria identified in Unspecified specimen by Aerobe culture Urine Aerobic Culture Microbiology Routine Incontinence in female Expected: 06/22/2023 (Approximate), Expires: 06/22/2024 [facility] Comment on above: Expected: 06/22/2023 (Approximate), Expi res: 06/22/2024 Start: 06-22-2023 End: 06-21-2024 Urinalysis Urinalysis with microscopic Lab Routine Incontinence in female Expected: 06/22/2023 (Approximate), Expires: 06/21/2024 [facility] Work Phone: Comment on above: Expected: 06/22/2023 (Approximate), Expi res: 06/21/2024 Start: 06-11-2023 End: 06-11-2023 Patient encounter procedure 06/11/2023 9:00 AM EST Office Visit [facility] Neurology [address] [place] [address] Virgen Campos MD [address] [place] [address] [facility] Neurology Start: 06-03-2023 End: 06-03-2023 Patient encounter procedure 06/03/2023 11:00 AM EST Office Visit [facility] Cardiology [address] [place] [address] Stephany Pelayo PA-C [address] [place] [address] Cristy Najrea MD [address] [place] [address] [facility] Cardiology Start: 05-28-2023 End: 05-28-2023 Home visit 05/28/2023 8:00 AM EST Home Care Visit [facility] [address] [place] [address] Sharla Paulino PSA [facility] Start: 05-26-2023 End: 05-26-2023 Home visit 05/26/2023 8:00 AM EST Home Care Visit [facility] [address] [place] [address] Sharla Paulino PSA [facility] Start: 05-23-2023 Glaucoma screening Diabetic Eye Exam [facility] Comment on above: Postponed from 1987 (Per Other [facility] Practice Guidelines) Start: 05-21-2023 End: 05-21-2023 Home visit 05/21/2023 8:00 AM EST Home Care Visit [facility] [address] [place] [address] Sharla Paulino PSA [facility] Start: 05-19-2023 End: 05-19-2023 Home visit 05/19/2023 8:45 AM EST Home Care Visit [facility] [address] [place] [address] Sharla Paulino PSA [facility] Start: 05-15-2023 End: 05-15-2023 Patient encounter procedure [facility] Start: 05-14-2023 End: 05-14-2023 Home visit 05/14/2023 8:00 AM EST Home Care Visit [facility] [address] [place] [address] Sharla Paulino PSA [facility] Start: 05-12-2023 End: 05-12-2023 Home visit 05/12/2023 8:45 AM EST Home Care Visit [facility] [address] [place] [address] Sharla Paulino PSA [facility] Start: 05-07-2023 End: 05-07-2023 Patient encounter procedure 05/07/2023 1:00 PM EST Office Visit [facility] Neurology [address] [facility] [address] [place] [address] Virgen Campos MD [address] [place] [address] [facility] Neu[facility] Start: 05-07-2023 End: 05-07-2023 Home visit 05/07/2023 8:00 AM EST Home Care Visit [facility] [address] [place] [address] Sharla Paulino PSA [facility] Start: 05-05-2023 End: 05-05-2023 Home visit 05/05/2023 8:45 AM EST Home Care Visit [facility] [address] [place] [address] Sharla Paulino PSA [facility] Start: 04-30-2023 End: 05-01-2023 Home visit [facility] Start: 04-29-2023 End: 04-29-2023 Home visit [facility] Start: 04-28-2023 End: 04-28-2023 Home visit 04/28/2023 10:15 AM EST Home Care Visit [facility] [address] [place] [address] Sharla Paulino PSA [facility] Start: 04-27-2023 End: 04-28-2023 Home visit [facility] Start: 04-27-2023 End: 04-27-2023 Home visit 04/27/2023 4:30 AM EST Home Care Visit [facility] [address] [place] [address] Carlitos Carrera LPN [facility] Start: 04-24-2023 End: 04-24-2023 Home visit 04/24/2023 7:30 AM EST Home Care Visit [facility] [address] [place] [address] Carlitos Carrera LPN [facility] Start: 04-23-2023 End: 04-23-2023 Home visit 04/23/2023 12:30 PM EST Home Care Visit [facility] [address] [place] [address] Radha Jameson OTA [facility] Start: 04-23-2023 End: 04-23-2023 Home visit 04/23/2023 9:15 AM EST Home Care Visit [facility] [address] [place] [address] Sharla Paulino PSA [facility] Start: 04-22-2023 End: 04-22-2023 Home visit [facility] Start: 04-21-2023 End: 04-21-2023 Home visit 04/21/2023 3:30 PM EST Home Care Visit [facility] [address] [place] [address] Tiny Arias PTA [facility] Start: 04-21-2023 End: 04-21-2023 Home visit 04/21/2023 12:30 PM EST Home Care Visit [facility] [address] [place] [address] Radha Jameson OTA [facility] Start: 04-21-2023 End: 04-21-2023 Home visit [facility] Start: 04-20-2023 End: 04-20-2023 Home visit [facility] Start: 04-17-2023 End: 04-17-2023 Home visit [facility] Start: 04-15-2023 End: 04-15-2023 Home visit [facility] Start: 04-14-2023 Hemoglobin A1c measurement A1C [facility] Start: 04-14-2023 End: 04-14-2023 Home visit 04/14/2023 12:15 PM EST Home Care Visit [facility] [address] [place] [address] Carolina Boston PSA [facility] Start: 04-14-2023 End: 04-14-2023 Home visit 04/14/2023 10:15 AM EST Home Care Visit [facility] [address] [place] [address] Sharla Paulino PSA [facility] Start: 04-13-2023 End: 04-13-2023 Home visit 04/13/2023 Home Care Visit [facility] [address] [place] [address] Tiny Arias PTA [facility] Start: 04-10-2023 End: 04-10-2023 Home visit 04/10/2023 5:45 AM EST Home Care Visit [facility] [address] [place] [address] Cece Colin OT [facility] Start: 04-09-2023 End: 04-09-2023 Home visit [facility] Start: 04-08-2023 End: 04-08-2023 Home visit 04/08/2023 11:30 AM EST Home Care Visit [facility] [address] [place] [address] Carlitos Carrera LPN [facility] Start: 04-07-2023 End: 04-08-2023 Home visit [facility] Start: 04-03-2023 End: 04-03-2023 Home visit 04/03/2023 11:15 AM EST Home Care Visit [facility] [address] [place] [address] Sharla Paulino PSA [facility] Start: 04-03-2023 End: 04-03-2023 Home visit 04/03/2023 8:30 AM EST Home Care Visit [facility] [address] [place] [address] Cece Colin OT [facility] Start: 04-03-2023 End: 04-03-2023 Home visit 04/03/2023 4:30 AM EST Home Care Visit [facility] [address] [place] [address] Karen Prather PT [facility] Start: 02-09-2023 End: 02-09-2023 Patient encounter procedure 02/09/2023 2:45 PM EDT Office Visit [facility] [address] [facility] [place] [address] Josué Christianson DO [address] [facility] [place] [address] [facility] Start: 01-23-2023 COVID-19 VACCINE ( season) COVID[facility] VACCINE ( [facility]) [facility] Start: 01-23-2023 COVID-19 VACCINE ( season) COVID-19 VACCINE ( season) [facility] Start: 01-23-2023 COVID-19 Vaccine ( season) COVID-19 Vaccine ( season) [facility] Start: 01-23-2023 Influenza vaccination Sequential Influenza Vaccine (#1) [facility] Start: 09-12-2022 [facility] Start: 09-12-2022 OR DSA (Angiogram) W/TLA/Stent Left Leg (Left) OR DSA (Angiogram) W/TLA/Stent Left Leg (Left) [facility] Start: 08-22-2022 [facility] Start: 08-22-2022 Lower limb angiography IR Angiogram Left Leg (Left) [facility] Start: 08-21-2022 Referral to vascular surgeon [facility] Start: 08-20-2022 Blood culture for bacteria, including anaerobic screen Blood Culture [facility] Start: 08-20-2022 Drainage of Left Foot Skin, External Approach Drainage of Left Foot Skin, External Approach [facility] Start: 08-20-2022 Referral to infectious diseases physician [facility] Start: 08-20-2022 Hospital admission [facility] Start: 08-20-2022 Referral to nitrate operator [facility] Start: 08-19-2022 Plain chest X-ray XR chest 1V portable [facility] Start: 08-19-2022 X-ray of left foot XR foot LT min 3V* [facility] Start: 08-19-2022 XR Chest Single view [facility] Start: 08-19-2022 XR Foot - left GE 3 Views [facility] Start: 2022 Screening for malignant neoplasm of colon [facility] Start: 03-06-2022 Pneumococcal Vaccine: Ped or At-Risk (2 - PCV) Pneumococcal Vaccine: Ped or At-Risk (2 - PCV) [facility] Start: 01-23-2022 Influenza vaccination Flu vaccine (#1) [facility] Start: 04-13-2021 COVID-19 Vaccine (2 - Pfizer series) COVID-19 Vaccine (2 - Pfizer series) [facility] Start: 04-13-2021 COVID-19 Vaccine (3 - Mixed Product series) COVID-19 Vaccine (3 - Mixed Product series) [facility] Start: 12-02-2020 HbA1c (Bld) [Mass fraction] A1C [facility] Start: 09-11-2017 Hemoglobin A1c measurement HBA1C TEST [facility] Start: 2017 Screening for malignant neoplasm of breast [facility] Start: 01-23-2017 Influenza vaccination SEQUENTIAL INFLUENZA VACCINE (#1) [facility] Work Phone: Start: 05-25-2016 Lipid panel Lipids [facility] Start: 04-02-2014 HbA1c HEMOGLOBIN A1C [facility] Work Phone: Start: 05-27-2013 Urine screening for protein Urine Microalbumin [facility] Start: 05-27-2013 Urine, microalbumin URINE MICROALBUMIN [facility] Work Phone: Start: 06-30-2009 Lipid panel LIPIDS [facility] Start: 06-02-2009 Urine screening for protein [facility] Start: 2007 Screening for malignant neoplasm of cervix [facility] Start: 1998 Screening for malignant neoplasm of cervix [facility] Start: 1996 DTaP/Tdap/Td vaccine (1 - Tdap) DTaP/Tdap/Td vaccine (1 - Tdap) [facility] Start: 1996 Hepatitis B vaccination HEP B VACCINE (1 of 3 - 19+ 3-dose series) [facility] Start: 1995 Hepatitis C antibody, confirmatory test Hepatitis C Screening [facility] Start: 1995 Hepatitis C screening [facility] Start: 1993 COVID-19 Vaccine (1 of 2) COVID-19 Vaccine (1 of 2) [facility] Start: 1992 HIV screening [facility] Start: 1989 Depression Screen Depression Screen [facility] Start: 1987 Diabetic foot examination (regime/therapy) [facility] Start: 1987 Glaucoma screening [facility] Start: 1987 Ophthalmic examination and evaluation OPHTHALMOLOGY EXAM [facility] Work Phone: Start: 1987 Urine screening for protein Urine (micro)albumin/creatini ne ratio - Diabetes [facility] Start: 1980 History and physical examination, annual for health maintenance Wellness Visit [facility] Start: 1977 COVID-19 Vaccine (#1) COVID-19 Vaccine (#1) [facility] Start: 1977 Diabetic foot examination DIABETIC FOOT EXAM [facility] Start: 1977 Glaucoma screening EYE EXAM [facility] Start: 1977 Hepatitis C screening HEPATITIS C VIRUS SCREENING [facility] Start: 1977 Screening for malignant neoplasm of cervix PAP SMEAR [facility] Work Phone: Start: 1977 Screening for malignant neoplasm of colon [facility] Start: 1977 Screening mammography Mammogram [facility] Start: 1977 Tetanus vaccination [facility] Work Phone: Start: 1977 Thyroid stimulating hormone measurement TSH [facility] Aerobic microbial culture Wound Aerobic Culture Microbiology Routine 06/05/2020 11:32 AM EST [facility] Bacteria identified Cx Nom (Bld) Blood Culture Aerobic/Anaerobic Microbiology Routine 06/03/2020 2:39 PM EST [facility] Bacteria identified in Blood by Culture [facility] Work Phone: Bacteria identified in Unspecified specimen by Anaerobe culture [facility] End: 09-02-2024 Basic metabolic 2000 panel - Serum or Plasma Basic Metabolic Panel Lab Routine Primary hypertension 1 Occurrences starting 09/03/2023 until 09/02/2024 [facility] Comment on above: 1 Occurrences starting 09/03/2023 until 09/02/2024 End: 01-26-2025 Basic metabolic 2000 panel - Serum or Plasma Basic Metabolic Panel Lab Routine SOLO (acute kidney injury) (HCC) 1 Occurrences starting 01/27/2024 until 01/26/2025 [facility] Work Phone: Comment on above: 1 Occurrences starting 01/27/2024 until 01/26/2025 End: 10-07-2022 Blood typing serologic abo ABO RH TYPE Lab STAT One time for 1 Occurrences starting 10/07/2022 until 10/07/2022 [facility] Comment on above: One time for 1 Occurrences starting 09/22 until 10/07/2022 End: 03-22-2025 Clostridium difficile toxin assay Clostridium Difficile Testing Microbiology Routine Diarrhea, unspecified type 1 Occurrences starting 03/22/2024 until 03/22/2025 [facility] Comment on above: 1 Occurrences starting 03/22/2024 until 03/22/2025 End: 03-22-2025 Complete blood count with white cell differential, manual CBC and Differential Lab Routine Diarrhea, unspecified type Abdominal cramping 1 Occurrences starting 03/22/2024 until 03/22/2025 [facility] Comment on above: 1 Occurrences starting 03/22/2024 until 03/22/2025 End: 08-02-2025 Complete blood count with white cell differential, manual CBC and Differential Lab Routine Primary hypertension 1 Occurrences starting 08/02/2024 until 08/02/2025 [facility] Work Phone: Comment on above: 1 Occurrences starting 08/02/2024 until 08/02/2025 End: 10-12-2024 Comprehensive metabolic 2000 panel - Serum or Plasma Comprehensive Metabolic Panel Lab Routine RUQ abdominal pain 1 Occurrences starting 10/13/2023 until 10/12/2024 [facility] Comment on above: 1 Occurrences starting 10/13/2023 until 10/12/2024 End: 03-22-2025 Comprehensive metabolic 2000 panel - Serum or Plasma Comprehensive Metabolic Panel Lab Routine Diarrhea, unspecified type Abdominal cramping 1 Occurrences starting 03/22/2024 until 03/22/2025 [facility] Comment on above: 1 Occurrences starting 03/22/2024 until 03/22/2025 End: 09-15-2024 EEG (STANDARD) EEG (Standard) Neurology Routine Seizure ([facility]) 1 Occurrences starting 09/16/2023 until 09/15/2024 [facility] Work Phone: Comment on above: 1 Occurrences starting 09/16/2023 until 09/15/2024 External Lab Urine D rug Screen External Lab Urine Drug Screen Lab Routine Encounter for monitoring opioid maintenance therapy Ordered: 05/13/2024 [employer] Work Phone: Comment on above: Ordered: 05/13/2024 End: 03-22-2025 Gastrointestinal pathogens DNA and RNA panel - Stool by EBONIE with non-probe detection Stool/GI PCR Panel Microbiology Routine Diarrhea, unspecified type 1 Occurrences starting 03/22/2024 until 03/22/2025 [employer] Work Phone: Comment on above: 1 Occurrences starting 03/22/2024 until 03/22/2025 End: 09-02-2024 Hemoglobin A1c/Hemoglobin.total in Blood Hemoglobin A1c Lab Routine Type 2 diabetes mellitus with diabetic polyneuropathy, with long-term current use of insulin ([facility]) 1 Occurrences starting 09/03/2023 until 09/02/2024 [employer] Work Phone: Comment on above: 1 Occurrences starting 09/03/2023 until 09/02/2024 End: 07-07-2024 MG Breast - bilateral Screening Mammography Screening [place] [facility] Routine Encounter for screening mammogram for malignant neoplasm of breast 1 Occurrences starting 05/06/2023 until 07/07/2024 [employer] Work Phone: Comment on above: 1 Occurrences starting 05/06/2023 until 07/07/2024 End: 10-02-2025 MG Breast - bilateral Screening Mammography Screening Bilateral Imaging Routine Encounter for screening mammogram for malignant neoplasm of breast 1 Occurrences starting 08/02/2024 until 10/02/2025 [facility] Comment on above: 1 Occurrences starting 08/02/2024 until 10/02/2025 Microalbumin measure ment, urine, quantitative Microalbumin, Urine, Random Lab Routine Type 2 diabetes mellitus with diabetic polyneuropathy, with long-term current use of insulin (HCC) Ordered: 12/02/2023 [facility] Work Phone: Comment on above: Ordered: 12/02/2023 Patient Education [facility] Work Phone: Patient referral [facility] Work Phone: Procedure on tissue specimen [facility] Work Phone: End: 10-07-2022 Prothrombin time PROTHROMBIN TIME AND INR Lab STAT One time, now for 1 Occurrences starting 10/07/2022 until 10/07/2022 [facility] Comment on above: One time, now for 1 Occurrences starting 10/07/2022 until 10/07/2022 End: 10-06-2022 RF Spine epidural space Views W contrast IT [employer] Work Phone: Comment on above: One time, now for 1 Occurrences starting 10/06/2022 until 10/06/2022 End: 03-22-2025 Serum levetiracetam measurement Levetiracetam Level Lab Routine Seizures (HCC) 1 Occurrences starting 03/22/2024 until 03/22/2025 [facility] Comment on above: 1 Occurrences starting 03/22/2024 until 03/22/2025 End: 10-07-2022 Thromboplastin time partial plasma/whole blood PARTIAL THROMBOPLASTIN TIME Lab STAT One time, now for 1 Occurrences starting 10/07/2022 until 10/07/2022 [employer] Work Phone: Comment on above: One time, now for 1 Occurrences starting 10/07/2022 until 10/07/2022 End: 09-15-2024 THROMBOTIC RISK SCREEN Thrombotic Risk Screen Lab Routine Lacunar stroke (HCC) 1 Occurrences starting 09/16/2023 until 09/15/2024 [facility] Comment on above: 1 Occurrences starting 09/16/2023 until 09/15/2024 End: 01-26-2025 Thyrotropin [Units/volume] in Serum or Plasma TSH with Reflex Free T4 Lab Routine Hypothyroidism, unspecified type 1 Occurrences starting 01/27/2024 until 01/26/2025 [facility] Comment on above: 1 Occurrences starting 01/27/2024 until 01/26/2025 End: 10-12-2024 US Abdomen US Abdomen Complete Imaging Routine RUQ abdominal pain 1 Occurrences starting 10/13/2023 until 10/12/2024 [facility] Comment on above: 1 Occurrences starting 10/13/2023 until 10/12/2024 End: 09-02-2024 Vitamin D, 25-hydroxy measurement Vitamin D, Total, 25-OH Lab Routine Vitamin D deficiency 1 Occurrences starting 09/03/2023 until 09/02/2024 [facility] Comment on above: 1 Occurrences starting 09/03/2023 until 09/02/2024 End: 10-12-2024 XR Chest PA and Lateral and AP lateral-decubitus XR Chest AP/PA and LAT Imaging Routine Subacute cough 1 Occurrences starting 10/13/2023 until 10/12/2024 [facility] Work Phone: Comment on above: 1 Occurrences starting 10/13/2023 until 10/12/2024 End: 02-10-2025 XR Chest PA and Lateral and AP lateral-decubitus XR Chest AP/PA and LAT Imaging Routine Pleuritic chest pain 1 Occurrences starting 02/11/2024 until 02/10/2025 [facility] Work Phone: Comment on above: 1 Occurrences starting 02/11/2024 until 02/10/2025 End: 09-21-2024 XR Foot - right 3 Views XR Foot Right 3+ Views (Standard) Imaging Routine Right foot ulcer, with fat layer exposed (HCC) 1 Occurrences starting 09/22/2023 until 09/21/2024 [facility] Work Phone: Comment on above: 1 Occurrences starting 09/22/2023 until 09/21/2024 End: 03-22-2025 XR Knee - bilateral 2 Views XR Knees Bilateral 2 Views Each (Standard) Imaging Routine Chronic pain of both knees 1 Occurrences starting 03/22/2024 until 03/22/2025 [facility] Comment on above: 1 Occurrences starting 03/22/2024 until 03/22/2025 End: 08-18-2025 XR Knee - bilateral 4 Views XR Knees Bilateral 4+ Views Each (Specify Views in Comments) Imaging Routine Pain in both knees, unspecified chronicity 1 Occurrences starting 08/18/2024 until 08/18/2025 [facility] Work Phone: Comment on above: 1 Occurrences starting 08/18/2024 until 08/18/2025 End: 02-05-2024 XR Knee Right 4+VWS (Note in Comments) XR Knee Right 4+VWS (Note in Comments) Imaging Routine Right knee pain, unspecified chronicity 1 Occurrences starting 02/04/2023 until 02/05/2024 [facility] Work Phone: Comment on above: 1 Occurrences starting 02/04/2023 until 02/05/2024 End: 08-08-2025 XR Lumbar spine 2 or 3 Views XR Lumbar Spine 2-3 Views (Standard) Imaging Routine Lumbar pain 1 Occurrences starting 08/09/2024 until 08/08/2025 [facility] Work Phone: Comment on above: 1 Occurrences starting 08/09/2024 until 08/08/2025 Immunizations Immunization Date Immunization Notes Care Provider Gabby redd 02-11-2024 Seasonal, trivalent, recombinant, injectable influenza vaccine, preservative free Stephany Pelayo PA-C Work Phone: [facility] 05-06-2023 influenza, injectabl e, quadrivalent, preservative free Ama Wilcox RN [facility] 05-06-2023 influenza, seasonal, injectable Maye Ramirez LPN [facility] 05-06-2023 Pneumococcal Conjuga te 20-Valent (Prevnar 20) Ama Wilcox RN [facility] 05-06-2023 flu vaccine [id number],6mos up, (FLUZONE QUAD/AFLURIA QUAD) injection Stephany Pelayo PA-C Work Phone: [facility] 05-06-2023 flu vacc [id number] 6 mos up,PF, (FLUZONE QUAD/FLULAVAL QUAD/FLUARIX QUAD) 60 mcg (15 mcg x 4)/0.5 mL Syrg syringe Stephany Pelayo PA-C Work Phone: [facility] 05-06-2023 pneumococcal conj. 20-valent (PREVNAR 20) 0.5 mL vaccine Stephany Pelayo PA-C Work Phone: [facility] 05-06-2023 influenza virus vaccine, unspecified formulation Maite Adams [facility] 03-29-2023 pneumococcal conj. 20-valent (PREVNAR 20) vaccine 0.5 mL Harshad Rizzo MD Work Phone: [facility] 03-29-2023 Pneumococcal Conjuga te 20-Valent (Prevnar 20) Maye Ramirez [facility] 04-09-2022 influenza, injectabl e, quadrivalent, preservative free Josué Christianson DO Work Phone: [facility] 04-09-2022 influenza, seasonal, injectable Ashutosh MENARD [facility] Comment on above: Reason for Medicatio n: Other (see comment) 02-21-2022 tetanus toxoid, redu sarah diphtheria toxoid, and acellular pertussis vaccine, adsorbed Santos Velez [facility] 03-06-2021 influenza virus vaccine, unspecified formulation Breanna Gu [facility] 03-06-2021 influenza, injectabl e, quadrivalent, preservative free Jocelyn Bowen MD Work Phone: [facility] 03-06-2021 pneumococcal polysaccharide vaccine, 23 valent Breanna Gu [facility] 02-16-2021 COVID-19 mRNA, Comirnatneel (Pfizer) INFORMATION ASSURANCE ANALYST-C Laurent Franco Work Phone: [facility] 02-16-2021 SARS-CoV-2 (COVID-19 ) Ad26 vaccine, recombinant Breanna Gu [facility] 12-02-2020 Moderna SARS-CoV-2 Vaccination Josué Mellis DO Work Phone: [facility] 06-05-2020 influenza virus vaccine, unspecified formulation Breanna Gu [facility] Comment on above: Result Comment: 2021: . Result Comment: 2021: . 06-05-2020 influenza, injectabl e, quadrivalent, preservative free Ko Hankins [facility] 05-25-2020 influenza virus vaccine, unspecified formulation Breanna Gu [facility] 05-25-2020 influenza, injectabl e, quadrivalent, preservative free Mihai Elizalde [employer] SALESPERSON Work Phone: [facility] 05-25-2020 influenza, seasonal, injectable Jocelyn Bowen MD Work Phone: [facility] 02-22-2018 influenza virus vaccine, unspecified formulation Breanna Gu [facility] 02-22-2018 influenza, injectabl e, quadrivalent, contains preservative Jocelyn Bowen MD Work Phone: [facility] 02-22-2018 influenza, injectabl e, quadrivalent, preservative free Josué Mellis DO Work Phone: [facility] 05-28-2015 influenza virus vaccine, unspecified formulation Ko Hankins [facility] 05-28-2015 influenza virus vaccine, whole virus Josué Mellis DO Work Phone: [facility] 05-28-2015 influenza, whole Breanna thomas [facility] 07-06-2014 pneumococcal polysaccharide vaccine, 23 valent No [facility] Work Phone: 03-26-2014 influenza virus vaccine, unspecified formulation Breanna Gu [facility] 03-26-2014 influenza, seasonal, injectable Jocelyn Bowen MD Work Phone: [facility] Payers Date Payer Category Payer Unknown [id number] 2022 Self-pay 2021 Medicaid (Managed Care) 1.2. [id number] 2014 [facility] [employer] MEDICAID [id number] 2014-Present [id number]. [id number] 2014 Medicaid [id number] [id number] .[id number] 1977 Unknown [id number] 2.16.840.1.919606.3.579.2. 478 1977 Unknown [id number] 2.16.840.1.980701.3.579.2. 647 1977 Unknown [id number] 2.16.840.1.027014.3.579.2. 185 1977 Unknown [id number] 2.16.840.1.655175.3.579.2. 732 1977 Unknown [id number] 2.16.840.1.276609.3.579.2. 732 1977 Unknown [id number] 2.16.840.1.505444.3.579.2. 732 1977 Unknown [id number] 2.16.840.1.712606.3.579.2. 593 1977 Unknown [id number] 2.16.840.1.705634.3.579.2. 593 1977 Unknown [id number] 2.16.840.1.801652.3.579.2. 593 1977 Unknown [id number] 2.16.840.1.372259.3.579.2. 593 1977 Unknown [id number] 2.16.840.1.600393.3.579.2. 593 1977 Unknown [id number] 2.16.840.1.772581.3.579.2. 593 1977 Unknown [id number] 2.16.840.1.295951.3.579.2. 593 1977 Unknown [id number] 2.16.840.1.791394.3.579.2. 593 1977 Unknown [id number] 2.16.840.1.069655.3.579.2. 593 1977 Unknown [id number] 2.16.840.1.322300.3.579.2. 593 1977 Unknown [id number] 2.16.840.1.331840.3.579.2. 593 1977 Unknown [id number] 2.16.840.1.391910.3.579.2. 593 1977 Unknown [id number] 2.16.840.1.758635.3.579.2. 593 1977 Unknown [id number] 2.16.840.1.827709.3.579.2. 593 1977 Unknown [id number] 2.16.840.1.173989.3.579.2. 593 1977 Unknown [id number] 2.16.840.1.518055.3.579.2. 593 1977 Unknown [id number] 2.16.840.1.137559.3.579.2. 593 1977 Unknown [id number] 2.16.840.1.505996.3.579.2. 593 1977 Unknown [id number] 2.16.840.1.695987.3.579.2. 593 1977 Unknown [id number] 2.16.840.1.280483.3.579.2. 903 1977 Unknown [id number] 2.16.840.1.535626.3.579.2. 900 1977 Unknown [id number] 2.16.840.1.424112.3.579.2. 727 1977 Unknown [id number] 2.16.840.1.691699.3.579.2. 594 1977 Unknown [id number] 2.16.840.1.774015.3.579.2. 594 1977 Unknown [id number] 2.16.840.1.189957.3.579.2. 594 1977 Unknown [id number] 2.16.840.1.997216.3.579.2. 903 1977 Unknown [id number] 2.16.840.1.388971.3.579.2. 903 1977 Unknown [id number] 2.16.840.1.680356.3.579.2. 1259 1977 Unknown [id number] 2.16.840.1.615525.3.579.2. 903 1977 Unknown [id number] 2.16.840.1.752487.3.579.2. 903 1977 Unknown [id number] 2.16.840.1.560643.3.579.2. 903 1977 Unknown [id number] 2.16.840.1.892393.3.579.2. 903 1977 Unknown [id number] 2.16.840.1.578129.3.579.2. 903 1977 Unknown [id number] 2.16.840.1.195380.3.579.2. 1977 Unknown [id number] 2.16.840.1.587103.3.579.2 1977 Unknown [id number] 2.16.840.1.108981.3.579.2 1977 Unknown [id number] 2.16840.1.197836.3.579.2 1977 Unknown [id number] 2.16840.1.087884.3.579.2 1977 Unknown [id number] 2.840.1.858698.3.579.2 1977 Unknown [id number] 2.840.1.760407.3.579.2 1977 Unknown [id number] 2.840.1.949608.3.579.2 1977 Unknown [id number] 2.840.1.189139.3.579.2 1977 Unknown [id number] 2.840.1.570548.3.579.2 1977 Unknown [id number] 2.840.1.119269.3.579.2 1977 Unknown [id number] 2.16840.1.955352.3.579.2 1977 Unknown [id number] 2.16840.1.125615.3.579.2 1977 Unknown [id number] 2.16840.1.924709.3.579.2 1977 Unknown [id number] 2.16.840.1.172860.3.579.2 1977 Unknown [id number] 2.16840.1.048589.3.579.2. 90 1977 Unknown [id number] 2.16.840.1.443677.3.579.2. 1977 Unknown [id number] 2.16.840.1.691249.3.579.2 1977 Unknown [id number] 2.16.840.1.328263.3.579.2. 1977 Unknown [id number] 2.16.840.1.505431.3.579.2 1977 Unknown [id number] 2.16.840.1.009663.3.579.2 1977 Unknown [id number] 2.16.840.1.898532.3.579.2 1977 Unknown [id number] 2.16.840.1.333369.3.579.2 1977 Unknown [id number] 2.16.840.1.158552.3.579.2 1977 Unknown [id number] 2.16.840.1.266399.3.579.2 1977 Unknown [id number] 2.16.840.1.782803.3.579.2 1977 Unknown [id number] 2.16.840.1.876696.3.579.2 1977 Unknown [id number] 2.16.840.1.791515.3.579.2 1977 Unknown [id number] 2.16.840.1.144164.3.579.2 1977 Unknown [id number] 2.16.840.1.529916.3.579.2 1977 Unknown [id number] 2.16.840.1.243804.3.579.2 1977 Unknown [id number] 2.16.840.1.253371.3.579.2. 903 1977 Unknown [id number] 2.16.840.1.673846.3.579.2. 903 1959 Medicaid [id number] 2.16.840.1.592347.3.249.13 1959 Medicaid [id number] Unknown [id number] 2.16.840.1.353865.3.579.2. 531 Unknown [id number] 2.16.840.1.346930.3.579.2. 531 Unknown [id number] 2.16.840.1.529531.3.579.2. 543 Unknown [id number] 2.16.840.1.826672.3.579.2. 543 Social History Date Type Detail Facility Start: 06-26-2017 End: 12-08-2023 Tobacco smoking status RUST Former smoker [employer] Work Phone: Start: 11-22-1996 End: 06-25-2015 History of tobacco use Cigarette Smoker [employer] Work Phone: Start: 06-26-2017 End: 04-27-2024 Cigarettes smoked current (pack per day) - Reported [employer] Work Phone: Start: 1975 Sex Assigned At Not on file [employer] Work Phone: Start: 06-03-2020 End: 12-08-2023 Tobacco use and exposure Never used [facility] Start: 06-03-2020 End: 09-22-2024 Alcohol intake Current non-drinker of alcohol (finding) [facility] Start: 11-28-2021 End: 10-07-2022 Exposure to SARS-CoV-2 (event) Not sure [facility] Tobacco smoking status Never [facility] Start: 01-31-2023 End: 04-27-2024 Sex Assigned At Female [employer] Other Start: 11-22-1996 End: 09-12-2022 History of tobacco use Current smoker [employer] Phone: Start: 12-08-2021 Tobacco use and exposure Former smokeless tobacco user [employer] Phone: Tobacco Current vaping o r e-cigarette use Smokeless Tobacco Use:. Vaping [facility] Tobacco smoking status No Smokin g Status Entered [facility] Start: 1975 Sex Assigned At Female [facility] Start: 11-28-2022 End: 01-27-2023 Tobacco smoking status NHIS Smokes tobacco daily [facility] How hard is it for y ou to pay for the very basics like food, housing, medical care, and heating Hard [facility] Work Phone: In the past 12 month s, was there a time when you were not able to pay the mortgage or rent on time? Yes [facility] Start: 06-03-2020 Gender identity Identifies as female gender (finding) [facility] Start: 06-03-2020 Sexual orientation Heterosexual (finding) [facility] [facility] How hard is it for y ou to pay for the very basics like food, housing, medical care, and heating Somewhat hard [facility] (I/We) worried wheth er (my/our) food would run out before (I/we) got money to buy more. Sometimes true [facility] Start: 08-26-2023 Tobacco Comment recently restarted [facility] History of tobacco use Passive smoker [facility] Start: 11-28-2022 Tobacco Comment [facility] Start: 12-08-2023 Tobacco Comment Vaping 6 mg nicotine [facility] Within the last year , have you been afraid of your partner or ex-partner? No [facility] (I[facility]We) worried wheth er (my/our) food would run out before (I/we) got money to buy more. Never true [facility] Start: 07-05-2024 Tobacco smoking status NHIS Never smoked tobacco [facility] Start: 07-05-2024 Alcoholic beverage intake Defer [facility] Start: 11-28-2022 20 Per Day/1 Pack 20 Per Day/1 Pack [facility] Work Phone: Start: 08-21-2018 E-Cigarettes E-Cigarettes [facility] Work Phone: Start: 08-21-2018 Yes Yes [facility] Work Phone: Start: 11-28-2022 No No [facility] Work Phone: Start: 08-21-2018 None None [facility] Work Phone: Start: 11-28-2022 Family Family [facility] Work Phone: Start: 07-05-2014 [facility] Work Phone: Start: 11-28-2022 hysterectomy hysterectomy [facility] Work Phone: Start: 08-29-2024 Sex Female (finding) [facility] Work Phone: Medical Equipment Procedure Code Equipment Code Equipment Origin al Text Equipment Identifier Dates Phacoemulsification of cataract with intraocular lens implantation Posterior-chamber intraocular lens, pseudophakic ()[id number] FDA Start: 09-12-2021 Insertion of central venous catheter (CVC) with subcutaneous port for chemotherapy Vascular port/catheter ()[id number] FDA Start: 09-22-2019 Biotronic Test Strips and Lancets, See Instructions, 1 box(es), 1, Test BID Freestyle Glucometer, [facility] Start: 10-22-2017 Test Strips and Lancets, See Instructions, 1 box(es), 1, Test BID Freestyle Glucometer, [facility] Start: 10-22-2017 Test Strips and Lancets, See Instructions, 1 box(es), 1, Test BID Freestyle Glucometer, [facility] Start: 10-22-2017 Test Strips and Lancets, See Instructions, 1 box(es), 1, Test BID Freestyle Glucometer, [facility] Start: 10-22-2017 Test Strips and Lancets, See Instructions, 1 box(es), 1, Test BID Freestyle Glucometer, [facility], Supply Start: 10-22-2017 Test Strips and Lancets, See Instructions, 1 box(es), 1, Test BID Freestyle Glucometer, [facility] Start: 10-22-2017 Test Strips and Lancets, See Instructions, 1 box(es), 1, Test BID Freestyle Glucometer, [facility] Start: 10-22-2017 Test Strips and Lancets, See Instructions, 1 box(es), 1, Test BID Freestyle Glucometer, [facility] Start: 10-22-2017 Test Strips and Lancets, See Instructions, 1 box(es), 1, Test BID Freestyle Glucometer, [facility] Start: 10-22-2017 [id number], [id number], [id number], [id number], [id number], [id number] Start: 10-12-2013 End: 06-05-2024 Test Strips and Lancets, See Instructions, 1 box(es), 1, Test BID Freestyle Glucometer, [facility] Start: 10-22-2017 Test Strips and Lancets, See Instructions, 1 box(es), 1, Test BID Freestyle Glucometer, [facility] Start: 10-22-2017 Test Strips and Lancets, See Instructions, 1 box(es), 1, Test BID Freestyle Glucometer, [facility] Start: 10-22-2017 Test Strips and Lancets, See Instructions, 1 box(es), 1, Test BID Freestyle Glucometer, [facility] Start: 10-22-2017 Test Strips and Lancets, See Instructions, 1 box(es), 1, Test BID Freestyle Glucometer, [facility] Start: 10-22-2017 Test Strips and Lancets, See Instructions, 1 box(es), 1, Test BID Freestyle Glucometer, [facility] Start: 10-22-2017 Test Strips and Lancets, See Instructions, 1 box(es), 1, Test BID Freestyle Glucometer, [facility] Start: 10-22-2017 Test Strips and Lancets, See Instructions, 1 box(es), 1, Test BID Freestyle Glucometer, [facility] Start: 10-22-2017 Lead Pace Nathan marion [place] [id number] [id number] - S [id number] Start: 03-30-2017 Cardiac pacemaker, device (physical object) ([id number]) Pacer Dual Mri Advisa Chamber - [id number] Start: 03-30-2017 Goals Date Patient Goal Desired Activity /State Personal health goal Functional Status Date Assessment Result Facility 10-06-2022 Functional Status N/A [facility] 09-12-2022 Functional Status N/A [facility] 09-12-2022 Functional Status [facility] 08-22-2022 Functional status Patient at [facility] Work Phone: 08-19-2022 Functional Status N/A [facility] 06-02-2022 Functional Status N/A [facility] 05-15-2022 Functional Status No [facility] 04-07-2022 Functional Status N/A [facility] 04-06-2022 Functional Status [facility] 02-27-2022 Functional Status N/A [facility] 02-21-2022 Functional Status N/A [facility] 01-24-2022 Functional Status N/A [facility] 01-09-2022 N/A [facility] 01-09-2022 [facility] 12-12-2021 Functional Status N/A [facility] 12-08-2021 Functional Status N/A [facility] 11-04-2021 Functional Status N/A [facility] 11-04-2021 Functional Status [facility] Mental Status Date Assessment Result Facility 08-29-2024 Cognitive function Appropriate;[facility] Work Phone: 08-22-2022 Cognitive function Cognitive Sta tus Patient at Baseline [facility] Work Phone: Clinical Notes 06-14-2021 to 09-29-2024 Jay Peralta MA - 09/29/2024 1:43 PM EDTPatient Ladan Antunez - 09/23/2024 10:55 AM Jim Mckeon DO - 09/23/2024 10:50 AM EDLadan Ocampo - 08/24/2024 9:12 AM EDT Note Date & Type Note Facility 09-29-2024 History of Present illness Narrative Faxed rx e-stim 09/28/24 documented in this encounter [facility] 09-27-2024 Note error AUTHENTICATED BY JIM VELEZ ON 09/27/2024 21:37:15 [facility] 09-26-2024 Note Erroneous encounter, patient not seen for office visit on this date. See documentation regarding seizure episodes in office lobby and transportation to ED. AUTHENTICATED BY STEPHANY PELAYO, ON 09/26/2024 08:41:02 [facility] 09-23-2024 Instructions Jim Velez DO - 09/23/2024 11:13 AM EDT Continue Percocet 5-325 one tablet tid prn x 2 weeks until review of UDS Continue Lyrica 75mg one capsule twice daily Continue tizanidine 4mg two tablets nightly as needed Follow up with Podiatry for further evaluation of left ankle and foot pain Complete urine drug screen Please call Refill Line or send MyChart Refill Request to Pain Management office 7 days before each fill date, every month. Order physical therapy. Will complete MRI lumbar spine without contrast after physical therapy is completed Reorder TENS unit documented in this encounter [facility] 09-23-2024 History of Present illness Narrative General Pain Index Questionnaire- [facility] Date: 09/23/24 Patient Name: ___Addie Organ We would like to know how much your pain presently prevents you from doing what you would normally do. Regarding each category, please indicate the overall impact your present pain has on your life, not just when the pain is at its worst. 1. Family/at-home responsibilities such as yard work, chores around the house or driving the children to school 10 Completely able to function Totally unable to function 2. Recreation including hobbies, sports, or other activities 10 Completely able to function Totally unable to function 3. Social activities including parties, theater, concerts, sporting events, dining out, and attending social functions with friends 10 Completely able to function Totally unable to function 4. Employment including volunteer work and homemaking task 0 Completely able to function Totally unable to function 5. Self-care such as take a shower or bath, grooming, getting dressed, and driving. Completely able to function Totally unable to function 6. Life support activities such as eating and sleeping 10 Completely able to function Totally unable to function Score ____50 (60) [facility] Interventional Pain Management Office Note Patient Name: Addie Organ Referring Physician: Stephany Pelayo PA-C Date of : 1975 PCP: Stephany Pelayo PA-C Date of Service: 09/27/24 History of Present Illness Last office visit: 05/13/24 Continue Percocet 5-325 one tablet every 4 hours as needed Continue Lyrica 75mg one capsule twice daily Continue tizanidine 4mg two tablets nightly as needed Follow up with Podiatry SE[facility] to monitor progress of healing from left great toe infection Complete urine drug screen Please call Refill Line or send MyChart Refill Request to Pain Management office 7 days before each fill date, every month. Follow up with Dr. Velez in 3 months After discussing the use of ambient listening and audio recording in generating medical documentation, the patient verbally consented to use of this technology for today's visit. Chief complaint: Lower back pain and left great toe Addie, a female with chronic pain, presented for follow-up of back, leg, and foot pain following toe amputation. Her history includes chronic lower back pain with L3-L5 degeneration, left ankle arthritis, and left toe amputation. She reported severe pain (8), radiating from waist to feet with burning sensations, recent falls, and decreased mobility. - She was taking Percocet BID, Lyrica 75mg BID, and tizanidine. - Plan includes increasing Percocet to TID with 2-week supply, continuing Lyrica and tizanidine, ordering lumbar spine x-ray, physical therapy referral, TENS unit, and follow-up with new nitrate operator. -Addie has scheduled an appointment with a new nitrate operator, Dr. Sun, on the , as she and her previous surgeon, Dr. Castillo, don't have an agreement. I PERSONALLY REVIEWED AND INTERPRETED OBJECTIVE DATA WITH THE PATIENT CONSISTING OF: Diagnostic & imaging results, intrathecal pump & SCStim management Other practitioners notes/ charts (e.g., PT, OT, consulting physicians) Labs, procedures or diagnostics that need to be performed CT scan left foot without contrast 01/13/2024 1. There appears to be an ulcer along the distal aspect of the 1st toe with likely adjacent cellulitis. 2. No CT evidence of osteomyelitis in the 1st toe or remainder of the foot. 3. 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 No acute fracture is identified. There are corticated bony densities adjacent to the medial malleolus consistent with sequela of remote trauma. 4. 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 XR left ankle 09/18/2024 Plate and screw fixation of the distal fibula. Probable screw track padilla within the lateral malleolus. Lateral ankle soft tissue edema. Moderate tibiotalar joint degenerative changes. No acute fracture. Osteopenia. Articular body along the anterior tibiotalar joint space measuring 0.7 cm in size. XR lumbar spine 09-23-24 Routine views of the lumbar spine were obtained and there is no evidence of fracture. Vertebral body heights are maintained. Patient body habitus somewhat limits evaluation. Moderate degenerative changes are present with endplate hypertrophy and multilevel facet arthropathy. There is also variable disc space height loss. Pain characteristics: - She reports experiencing pain radiating from her waist down to her legs and feet. -She describes the pain as sharp and burning, with varying degrees of intensity. - She experiences nocturnal burning pain in her feet, legs, and kicking, which makes it difficult for her to return to sleep. - Resting in her hospital bed with her legs elevated alleviates her pain, but consistently using a heating pad does not. -VAS 9 out of 10 left toe, 8/10 for back pain Functionality: -She uses a cane at home and primarily uses a hospital bed, primarily for bathroom access. - She participated in water therapy a few years ago and is considering water aerobics. Additional medical info: -Her gait is unstable, leading to frequent falls. - She manages to get 4 to 5 hours of sleep per night. - She has had multiple falls this year, including a hand injury from a fall early Thursday morning. -She is incontinent of both stool and urine Presence of spinal cord stimulator: no Presence of intrathecal pump: no OARRS/NARxCheck: OARRS/NARxCHECK Report Received and Assessed: 09/23/24 Date controlled substance agreement signed: 12/08/23 Date of last drug screen: 05/19/24 Functional Assessment: 50 Allergies: Iodides, Ketorolac, Tramadol, Codeine, Propoxyphene n-acetaminophen, Adhesive, Compazine [prochlorperazine], Ct: iodinated contrast- oral and iv dye, Fentanyl, Ibuprofen, Latex, Linezolid, Lorazepam, Nsaids (non-steroidal anti-inflammatory drug), Vancomycin, and Propoxyphene Past Medical History Past Medical History: Diagnosis Date Anxiety Bipolar 1 disorder (HCC) Chronic back pain Chronic kidney disease, stage 3 unspecified (HCC) Coronary artery disease Depression Diabetes mellitus (HCC) Generalized anxiety disorder Hypertension Insomnia MRSA (methicillin resistant Staphylococcus aureus) Pacemaker Schizoaffective disorder (HCC) Seizures (HCC) Stroke (HCC) Past Surgical History Past Surgical History: Procedure Laterality Date CHOLECYSTECTOMY FOOT SURGERY HYSTERECTOMY ORTHOPEDIC SURGERY left foot surgery PACEMAKER INSERTION NM AMPUTATION TOE METATARSOPHALANGEAL JOINT Left 04/01/2024 Procedure: AMPUTATION LEFT HALLUX; Surgeon: Shameka Castillo DPM; Location: [facility] Main OR; Service: Podiatry Social History Social History Tobacco Use Smoking status: Former Current packs/day: 1.00 Average packs/day: 1 pack/day for 18.8 years (18.8 ttl pk-yrs) Types: Cigarettes Start date: 09/30/2014 Passive exposure: Current Smokeless tobacco: Never Tobacco comments: Vaping 6 mg nicotine Vaping Use Vaping status: Every Day Substances: Nicotine, Flavoring Devices: Pre-filled or refillable cartridge Substance Use Topics Alcohol use: No Alcohol/week: 0.0 standard drinks of alcohol Drug use: Yes Types: Marijuana Comment: smoking as needed, last use thursday night Family History family history includes Diabetes in her father; Diabetes type II in her father; Hypertension in her father; Seizures in her mother. Physical Exam PACU Vitals 09/23/24 1055 BP: 121/84 Pulse: (!) 110 SpO2: 98% There is no height or weight on file to calculate BMI. Wt Readings from Last 3 Encounters: 09/18/24 127 kg (280 lb) 05/23/24 127 kg (280 lb) 05/13/24 127.3 kg (280 lb 9.6 oz) Temp Readings from Last 3 Encounters: 09/22/24 97.6 F (36.4 C) 09/18/24 97.7 F (36.5 C) (Oral) 05/23/24 97.6 F (36.4 C) (Oral) BP Readings from Last 3 Encounters: 09/23/24 121/84 09/22/24 (!) 153/68 09/18/24 130/88 Pulse Readings from Last 3 Encounters: 09/23/24 (!) 110 09/22/24 97 09/18/24 83 General Appearance: Alert, cooperative, no distress, appropriate for age, HEENT: Unremarkable Lungs: Clear to auscultation bilaterally, respirations unlabored Heart: Normal PMI, regular rate & rhythm, S1 and S2 normal, no murmurs, rubs, or gallop Skin/Hair/Nails: Skin warm, dry and intact, no rashes or abnormal dyspigmentation Neurologic: Alert and oriented x3, no cranial nerve deficits Musculoskeletal exam: Scant serosanguinous drainage from distal lateral aspect of left great toe amputation. Patient was wearing a sock without dressing. Medications Active Home Medications Medication Sig Take Last Dose On Take Morning of Surgery Comment(s) albuterol (PROVENTIL) 2.5 mg /3 mL (0.083 %) nebulizer solution Take 3 mL (2.5 mg total) by nebulization every 6 (six) hours as needed for wheezing or shortness of breath . albuterol 90 mcg/actuation inhaler Inhale 1 (one) puff every 4 to 6 hours as needed for shortness of breath or wheezing . alcohol swabs PadM Apply 1 (one) Swab. topically 5 (five) times a day Clean area before administering insulin. . atorvastatin (LIPITOR) 80 MG tablet Take 1 (one) tablet (80 mg total) by mouth daily . blood sugar diagnostic (glucose blood) strips by Miscellaneous route 3 (three) times a day As a backup to CGM to test blood sugar. One Touch Verio . busPIRone (BUSPAR) 30 MG tablet Take 1 (one) tablet (30 mg total) by mouth 2 (two) times a day . chlorthalidone (HYGROTON) 25 MG tablet Take 1 (one) tablet (25 mg total) by mouth daily . citalopram (CELEXA) 40 MG tablet Take 1 (one) tablet (40 mg total) by mouth daily . Dexcom G6 Vibrator Operator Misc Use as directed for continuous glucose monitoring . Dexcom G6 Sensor Simran Use as directed for continuous glucose monitoring change every 10 days . Dexcom G6 Transmitter Simran Use as directed for continuous glucose monitoring change every 3 months . glucagon (Gvoke HypoPen 2-Pack) 1 mg/0.2 mL AtIn Inject 0.2 mL (1 mg total) under the skin as needed . hydrOXYzine (VISTARIL) 50 MG capsule Take 1 (one) capsule (50 mg total) by mouth 3 (three) times a day as needed . inhalational spacing device inhaler Use as instructed . insulin lispro (AdmeLOG,HumaLOG) 100 unit/mL injection Inject up to 150 units once daily via pump . INSULIN PUMP CARTRIDGE SUBQ Inject under the skin Use as directed . lamoTRIgine (LAMICTAL) 25 MG tablet Take 1 (one) tablet (25 mg total) by mouth 2 (two) times a day . lancets Misc 1 Lancet by Miscellaneous route 3 (three) times a day . levETIRAcetam (KEPPRA) 1000 MG tablet Take 1 (one) tablet (1,000 mg total) by mouth 2 (two) times a day . levothyroxine (SYNTHROID, LEVOTHROID) 75 MCG tablet Take 1 (one) tablet (75 mcg total) by mouth once daily . lisinopriL (PRINIVIL,ZESTRIL) 40 MG tablet Take 1 (one) tablet (40 mg total) by mouth daily . loratadine (CLARITIN) 10 mg tablet Take 1 (one) tablet (10 mg total) by mouth daily . metFORMIN (GLUCOPHAGE) 1000 MG tablet Take 1 (one) tablet (1,000 mg total) by mouth 2 (two) times a day . metoprolol succinate (TOPROL-XL) 50 MG 24 hr tablet Take 1 (one) tablet (50 mg total) by mouth daily . miscellaneous medical supply Misc 1 each by Miscellaneous route daily . nortriptyline (PAMELOR) 25 MG capsule Take 1 (one) capsule (25 mg total) by mouth nightly . omeprazole (PRILOSEC) 40 MG capsule Take 1 (one) capsule (40 mg total) by mouth daily . Omnipod 5 G6 Pods, Gen 5, Crtg Omnipod 5 G6-G7 Pods, Gen 5, Crtg Omnipod Insulin Refill Crtg ondansetron (ZOFRAN-ODT) 4 MG disintegrating tablet Dissolve 1 (one) tablet (4 mg total) on top of tongue every 8 (eight) hours as needed for nausea . oxyCODONE-acetaminophen (PERCOCET) 5-325 mg per tablet Take 1 (one) tablet by mouth 2 (two) times a day as needed for pain . paliperidone (INVEGA) 6 MG 24 hr tablet Take 1 (one) tablet (6 mg total) by mouth daily . pantoprazole (PROTONIX) 40 MG tablet Take 1 (one) tablet (40 mg total) by mouth daily . polyethylene glycol (MIRALAX) 17 gram powder Take 17 (seventeen) g by mouth daily as needed (constipation) . vitamin with Ca-Iron-FA 27-1 mg Tab Take 1 (one) tablet by mouth daily . QUEtiapine (SEROQUEL) 400 MG tablet Take 2 (two) tablets (800 mg total) by mouth nightly . Rexulti 1 mg Tab TAKE 1 TABLET DAILY FOR 7 DAYS, THEN 2 DAILY FOR 7 DAYS AND AFTER IF TOLERATED FOR PSYCHOSIS timolol (TIMOPTIC) 0.5 % ophthalmic solution Administer 1 (one) drop into the left eye daily . traZODone (DESYREL) 100 MG tablet Take 1 (one) tablet (100 mg total) by mouth nightly as needed for sleep . zinc oxide-white petrolatum 17-57 % Pste Apply 1 Application topically daily . oxyCODONE-acetaminophen (PERCOCET) 5-325 mg per tablet Take 1 (one) tablet by mouth 3 (three) times a day as needed for pain (Days supply per fill: 14) . pregabalin (LYRICA) 75 MG capsule Take 1 (one) capsule (75 mg total) by mouth 2 (two) times a day (Days supply per fill: 30) . tiZANidine (Zanaflex) 4 MG tablet Take 2 tabs p.o. nightly . ASSESSMENT/PLAN Encounter Diagnoses Name Primary? DDD (degenerative disc disease), lumbar Lumbar radiculopathy Chronic pain syndrome Myofascial pain syndrome Yes Continue Percocet 5-325 one tablet tid prn x 2 weeks until review of UDS Continue Lyrica 75mg one capsule twice daily Continue tizanidine 4mg two tablets nightly as needed Follow up with Podiatry for further evaluation of left ankle and foot pain Complete urine drug screen Please call Refill Line or send iDevicest Refill Request to Pain Management office 7 days before each fill date, every month. Order physical therapy. Will complete MRI lumbar spine without contrast after physical therapy is completed Reorder TENS unit I am managing complex condition(s) serving as the focal point for the patient s care for consistency and continuity over time. I will continue to monitor for addiction and aberrant behavior, will use opiates with goal of weaning to lowest effective dose, will maximize doses of neuropathic agents and adjuvant therapies to manage pain, increase function, and maximize coping skills.. For any new medications prescribed today, patient was educated about indications for the medication, how to take the medication and potential side effects of the medications. We have discussed the findings on this office visit. The discussion included a complete verbal explanation of the examination results, diagnosis and current treatment plan. The treatment plan is discussed, covering the risk and benefits as well as possible side effects. The patient's questions were addressed. The patient verbalizes understanding and agreement with planned treatment. The patient is reminded that there is a risk of addiction. Patient has been counseled about the risk and benefit of opioid medications. The patient has been encourged to explore non-medication alternatives to manage pain. The patient is subject to being randomly assessed by oral/urine drug screening and/or pill count as needed to monitor patient compliance and adherance to the plan of care. OARRS REPORT WAS REVIEWED AND WAS CONSISTENT WITH PRESCRIBED MEDICATION REGIMEN NARCAN AVAILABILITY OPTIONS ARE DISCUSSED WITH ALL PATIENTS ON OPIOIDS Jim Velez DO Interventional Pain Management [facility] documented in this encounter [facility] 09-23-2024 Note [facility] Interventional Pain Management Office Note Patient Name: Addie Organ Referring Physician: Stephany Pelayo PA-C Date of : 1975 PCP: Stephany Pelayo PA-C Date of Service: 09/27/24 History of Present Illness Last office visit: 05/13/24 Continue Percocet 5-325 one tablet every 4 hours as needed Continue Lyrica 75mg one capsule twice daily Continue tizanidine 4mg two tablets nightly as needed Follow up with Podiatry SE[facility] to monitor progress of healing from left great toe infection Complete urine drug screen Please call Refill Line or send MyChart Refill Request to Pain Management office 7 days before each fill date, every month. Follow up with Dr. Velez in 3 months After discussing the use of ambient listening and audio recording in generating medical documentation, the patient verbally consented to use of this technology for today's visit. Chief complaint: Lower back pain and left great toe Addie, a female with chronic pain, presented for follow-up of back, leg, and foot pain following toe amputation. Her history includes chronic lower back pain with L3-L5 degeneration, left ankle arthritis, and left toe amputation. She reported severe pain (8-10/10), radiating from waist to feet with burning sensations, recent falls, and decreased mobility. - She was taking Percocet BID, Lyrica 75mg BID, and tizanidine. - Plan includes increasing Percocet to TID with 2-week supply, continuing Lyrica and tizanidine, ordering lumbar spine x-ray, physical therapy referral, TENS unit, and follow-up with new nitrate operator. -Addie has scheduled an appointment with a new nitrate operator, Dr. Sun, on the , as she and her previous surgeon, Dr. Castillo, don't have an agreement. I PERSONALLY REVIEWED AND INTERPRETED OBJECTIVE DATA WITH THE PATIENT CONSISTING OF: Diagnostic & imaging results, intrathecal pump & SCStim management Other practitioners' notes/ charts (e.g., PT, OT, consulting physicians) Labs, procedures or diagnostics that need to be performed CT scan left foot without contrast 01/13/2024 1. There appears to be an ulcer along the distal aspect of the 1st toe with likely adjacent cellulitis. 2. No CT evidence of osteomyelitis in the 1st toe or remainder of the foot. 3. 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 No acute fracture is identified. There are corticated bony densities adjacent to the medial malleolus consistent with sequela of remote trauma. 4. 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 XR left ankle 09/18/2024 Plate and screw fixation of the distal fibula. Probable screw track padilla within the lateral malleolus. Lateral ankle soft tissue edema. Moderate tibiotalar joint degenerative changes. No acute fracture. Osteopenia. Articular body along the anterior tibiotalar joint space measuring 0.7 cm in size. XR lumbar spine 09-23-24 Routine views of the lumbar spine were obtained and there is no evidence of fracture. Vertebral body heights are maintained. Patient body habitus somewhat limits evaluation. Moderate degenerative changes are present with endplate hypertrophy and multilevel facet arthropathy. There is also variable disc space height loss. Pain characteristics: - She reports experiencing pain radiating from her waist down to her legs and feet. -She describes the pain as sharp and burning, with varying degrees of intensity. - She experiences nocturnal burning pain in her feet, legs, and kicking, which makes it difficult for her to return to sleep. - Resting in her hospital bed with her legs elevated alleviates her pain, but consistently using a heating pad does not. -VAS 9 out of 10 left toe, 8/10 for back pain Functionality: -She uses a cane at home and primarily uses a hospital bed, primarily for bathroom access. - She participated in water therapy a few years ago and is considering water aerobics. Additional medical info: -Her gait is unstable, leading to frequent falls. - She manages to get 4 to 5 hours of sleep per night. - She has had multiple falls this year, including a hand injury from a fall early Thursday morning. -She is incontinent of both stool and urine Presence of spinal cord stimulator: no Presence of intrathecal pump: no OARRS/NARxCheck: OARRS/NARxCHECK Report Received and Assessed: 09/23/24 Date controlled substance agreement signed: 12/08/23 Date of last drug screen: 05/19/24 Functional Assessment: 50 Allergies: Iodides, Ketorolac, Tramadol, Codeine, Propoxyphene n-acetaminophen, Adhesive, Compazine [prochlorperazine], Ct: iodinated contrast- oral and iv dye, Fentanyl, Ibuprofen, Latex, Linezolid, Lorazepam, Nsaids (non-steroidal anti-inflammatory drug), Vancomycin, and Propoxyphene Past Medical History Past Medical History: Diagnosis Date Anx (more content not included)... [facility] 09-22-2024 Note Addie Jean Baptiste is a 49- year-old female patient of Stephany Pelayo PA-C who is presenting for follow-up visit. She does present in a wheelchair. I was walking a patient of mine out to the lobby when her freight rate specialist flagged me down saying that she was losing consciousness in the lobby. When I approached patient she had her eyes open but was unresponsive. At that time I did call for assistance. Within about a minute patient did start talking to me and said that she has not been feeling good and has been dizzy and shaking. The freight rate specialist with her said that he is not seeing her unresponsive like she was until just now. Staff members were able to start taking blood pressure at 2:18 PM with blood pressure at 139/85, heart rate 89 and oxygen was reading approximately 76% but patient has dark nail macedonian on. EMS was initiated at this time. Glucose was checked at 2:19 PM at 418. Patient is known diabetic. Patient was able to respond after blood sugar was checked and said that her pump has been broken so she has only been microdosing her insulin. Patient's last A1c was 10.6% so 418, while high, is likely a normal occurrence for patient. While we were talking she became more responsive over time. Says that she has been having hand weakness particular in her left hand that is more recent. She says that the shaking episodes are very random and have been within the last week. She denies any new herbals or medications. She denies any recent illnesses, fevers and has only had 1 episode of diarrhea last week. We placed oxygen on her at 2 L a minute and rechecked pulse ox at her ear which was 97%. I evaluated pulse and cardiac rhythm which were normal and no wheezing in the upper lung marquez. Patient had another episode where she stopped responding to questions with eyes open and leaning to her right side with lack of head control which lasted approximately 30 seconds to a minute before she had a little bit of shaking similar to a cold chill and was slow to respond for about another minute. About 10 minutes later patient had another episode where she was unresponsive for about 2 minutes with eyes open but unable to control her head as it was falling back. Support given. After about the 2-minute episode she started to respond slowly when EMS arrived. Patient was transferred to [facility] and taken to ED. During each episode, patient's pulse rate was evaluated and found to not have any episodes of lost pulse, skipped beats or racing heart. We unfortunately were unable to move her wheelchair due to postictal state and size of patient. Patient does express concern for missing her pain management appointment if she goes to the ED and is worried about pain medication. She proceeded to have EMS come back into the building and ask about her pain medicine and then also called from the ER to request notification about pain medicine as well. We did notify pain management to let them know that she had a emergency medical situation that required her to go to the hospital. Stephany Pelayo Pa-C was with me within 2 minutes of episodes occurring and was part of collaborative care until EMS took over. AUTHENTICATED BY KARON BEARD, ON 09/22/2024 16:04:57 [facility] 09-22-2024 History of Present illness Narrative Addie Jean Baptiste is a 49-year-old female patient of Stephany Pelayo PA-C who is presenting for follow-up visit. She does present in a wheelchair. I was walking a patient of mine out to the lobby when her freight rate specialist flagged me down saying that she was losing consciousness in the lobby. When I approached patient she had her eyes open but was unresponsive. At that time I did call for assistance. Within about a minute patient did start talking to me and said that she has not been feeling good and has been dizzy and shaking. The freight rate specialist with her said that he is not seeing her unresponsive like she was until just now. Staff members were able to start taking blood pressure at 2:18 PM with blood pressure at 139/85, heart rate 89 and oxygen was reading approximately 76% but patient has dark nail macedonian on. EMS was initiated at this time. Glucose was checked at 2:19 PM at 418. Patient is known diabetic. Patient was able to respond after blood sugar was checked and said that her pump has been broken so she has only been microdosing her insulin. Patient's last A1c was 10.6% so 418, while high, is likely a normal occurrence for patient. While we were talking she became more responsive over time. Says that she has been having hand weakness particular in her left hand that is more recent. She says that the shaking episodes are very random and have been within the last week. She denies any new herbals or medications. She denies any recent illnesses, fevers and has only had 1 episode of diarrhea last week. We placed oxygen on her at 2 L a minute and rechecked pulse ox at her ear which was 97%. I evaluated pulse and cardiac rhythm which were normal and no wheezing in the upper lung marquez. Patient had another episode where she stopped responding to questions with eyes open and leaning to her right side with lack of head control which lasted approximately 30 seconds to a minute before she had a little bit of shaking similar to a cold chill and was slow to respond for about another minute. About 10 minutes later patient had another episode where she was unresponsive for about 2 minutes with eyes open but unable to control her head as it was falling back. Support given. After about the 2-minute episode she started to respond slowly when EMS arrived. Patient was transferred to [facility] and taken to ED. During each episode, patient's pulse rate was evaluated and found to not have any episodes of lost pulse, skipped beats or racing heart. We unfortunately were unable to move her wheelchair due to postictal state and size of patient. Patient does express concern for missing her pain management appointment if she goes to the ED and is worried about pain medication. She proceeded to have EMS come back into the building and ask about her pain medicine and then also called from the ER to request notification about pain medicine as well. We did notify pain management to let them know that she had a emergency medical situation that required her to go to the hospital. Stephany Pelayo Pa-C was with me within 2 minutes of episodes occurring and was part of collaborative care until EMS took over. documented in this encounter [facility] 08-24-2024 History of Present illness Narrative Called pt to reschedule frida , unable to lvm documented in this encounter [facility] 08-04-2024 History of Present illness Narrative Pulse ox order faxed to [facility]. documented in this encounter [facility] 08-02-2024 Instructions Rafaela Castillo MA - 08/02/2024 3:12 PM EDT Call Neurology for your refills at [phone] Call [facility] to check on referrals at [phone] documented in this encounter [facility] 08-02-2024 Note [facility] [place] [address] Subjective Patient ID: Addie Jean Baptiste is a 49 y.o. female here for Chief Complaint Patient presents with Follow-up Would like miralax and zinc oxide cream After discussing the use of ambient listening and audio recording in generating medical documentation, the patient verbally consented to use of this technology for today's visit. History of Present Illness The patient presents for routine follow-up appointment. She reports experiencing anxiety attacks at night, during which she is unable to consume liquids and experiences dyspnea. These episodes are distressing, leading to emotional upset and a perceived decrease in her oxygen saturation levels. She describes a sensation of being unable to catch her breath, which induces fear and anxiety. These episodes have been occurring nightly. She has been receiving telehealth consultations from [facility], which she reports as beneficial. Asking for pulse oximeter to use during these anxiety attacks. She notes that her seizures are often triggered by sleep deprivation, unclear when had last seizure episode. She reports intermittent issues with constipation and requests a prescription for MiraLAX. She has been experiencing chronic lower back pain, which is exacerbated by movement. She was previously scheduled for surgery but was informed that she had shingles or MRSA, which precluded surgical intervention. She has undergone myelograms and a CT scan, and is interested in seeing a bombsight specialist. She reports difficulty in ambulating due to foot pain, which is exacerbated by the formation of new blisters with each attempt to walk. She has an upcoming appointment with her nitrate operator on 08/12/2024 for multiple diabetic foot wounds and likely planning for surgery. She has not been performing any wound care at home. She reports the presence of blisters under both breasts, which are non-pruritic but cause a burning sensation. She is concerned about the potential development of ulcers.She has been using a wheelchair for mobility and continues to see a paint stock clerk. She has an upcoming appointment with an machine shop worker at [facility]. Not routinely checking BG. She reports difficulty in rising from a seated position due to right knee pain, which occasionally swells. She is interested in pursuing physical therapy and x-rays. She has been experiencing vision problems, which she attributes to a previous episode of hemorrhage in the back of her eye. She has been referred to [facility] for further evaluation but declined an offered injection. She has undergone two eye surgeries, which have not improved her symptoms. Denied other acute concerns. Past medical/surgical history Past Medical History: Diagnosis Date Anxiety Bipolar 1 disorder (HCC) Chronic back pain Chronic kidney disease, stage 3 unspecified (HCC) Coronary artery disease Depression Diabetes mellitus (HCC) Generalized anxiety disorder Hypertension Insomnia MRSA (methicillin resistant Staphylococcus aureus) Pacemaker Schizoaffective disorder (HCC) Seizures (HCC) Stroke (HCC) Past Surgical History: Procedure Laterality Date CHOLECYSTECTOMY FOOT SURGERY HYSTERECTOMY ORTHOPEDIC SURGERY left foot surgery PACEMAKER INSERTION NM AMPUTATION TOE METATARSOPHALANGEAL JOINT Left 04/01/2024 Procedure: AMPUTATION LEFT HALLUX; Surgeon: Shameka Castillo DPM; Location: [facility] Main OR; Service: Podiatry Family History Problem Relation Age of Onset Seizures Mother Diabetes Father Hypertension Father Diabetes type II Father Current Outpatient Medications Medication Sig Dispense Refill alcohol swabs PadM Apply 1 (one) Swab. topically 5 (five) times a day Clean area before administering insulin. . 150 each 5 blood sugar diagnostic (glucose blood) strips by Miscellaneous route 3 (three) times a day As a backup to CGM to test blood sugar. One Touch Verio . 100 strip 5 busPIRone (BUSPAR) 30 MG tablet Take 1 (one) tablet (30 mg total) by mouth 2 (two) times a day . Dexcom G6 Vibrator Operator Misc Use as directed for continuous glucose monitoring . 1 each 0 Dexcom G6 Sensor Simran Use as directed for continuous glucose monitoring change every 10 days . 3 each 11 Dexcom G6 Transmitter Simran Use as directed for continuous glucose monitoring change every 3 months . 1 each 3 glucagon (Gvoke HypoPen 2-Pack) 1 mg/0.2 mL AtIn Inject 0.2 mL (1 mg total) under the skin as needed . 2 mL 1 hydrOXYzine (VISTARIL) 50 MG capsule Take 1 (one) capsule (50 mg total) by mouth 3 (three) times a day as needed . inhalational spacing device inhaler Use as instructed . 1 each 2 insulin lispro (AdmeLOG,HumaLOG) 100 unit/mL injection Inject up to 150 units once daily via pump . 50 mL 5 INSULIN PUMP CARTRIDGE SUBQ Inject under the skin Use as directed . ame (more content not included)... [facility] 08-02-2024 History of Present illness Narrative [facility] [address] [place] [address]. [place] [address] Subjective Patient ID: Addie Jean Baptiste is a 49 y.o. female here for Chief Complaint Patient presents with Follow-up Would like miralax and zinc oxide cream After discussing the use of ambient listening and audio recording in generating medical documentation, the patient verbally consented to use of this technology for today's visit. History of Present Illness The patient presents for routine follow-up appointment. She reports experiencing anxiety attacks at night, during which she is unable to consume liquids and experiences dyspnea. These episodes are distressing, leading to emotional upset and a perceived decrease in her oxygen saturation levels. She describes a sensation of being unable to catch her breath, which induces fear and anxiety. These episodes have been occurring nightly. She has been receiving telehealth consultations from [facility], which she reports as beneficial. Asking for pulse oximeter to use during these anxiety attacks. She notes that her seizures are often triggered by sleep deprivation, unclear when had last seizure episode. She reports intermittent issues with constipation and requests a prescription for MiraLAX. She has been experiencing chronic lower back pain, which is exacerbated by movement. She was previously scheduled for surgery but was informed that she had shingles or MRSA, which precluded surgical intervention. She has undergone myelograms and a CT scan, and is interested in seeing a bombsight specialist. She reports difficulty in ambulating due to foot pain, which is exacerbated by the formation of new blisters with each attempt to walk. She has an upcoming appointment with her nitrate operator on 08/12/2024 for multiple diabetic foot wounds and likely planning for surgery. She has not been performing any wound care at home. She reports the presence of blisters under both breasts, which are non-pruritic but cause a burning sensation. She is concerned about the potential development of ulcers.She has been using a wheelchair for mobility and continues to see a paint stock clerk. She has an upcoming appointment with an machine shop worker at [facility]. Not routinely checking BG. She reports difficulty in rising from a seated position due to right knee pain, which occasionally swells. She is interested in pursuing physical therapy and x-rays. She has been experiencing vision problems, which she attributes to a previous episode of hemorrhage in the back of her eye. She has been referred to [facility] for further evaluation but declined an offered injection. She has undergone two eye surgeries, which have not improved her symptoms. Denied other acute concerns. Past medical/surgical history Past Medical History: Diagnosis Date Anxiety Bipolar 1 disorder (HCC) Chronic back pain Chronic kidney disease, stage 3 unspecified (HCC) Coronary artery disease Depression Diabetes mellitus (HCC) Generalized anxiety disorder Hypertension Insomnia MRSA (methicillin resistant Staphylococcus aureus) Pacemaker Schizoaffective disorder (HCC) Seizures (HCC) Stroke (HCC) Past Surgical History: Procedure Laterality Date CHOLECYSTECTOMY FOOT SURGERY HYSTERECTOMY ORTHOPEDIC SURGERY left foot surgery PACEMAKER INSERTION NM AMPUTATION TOE METATARSOPHALANGEAL JOINT Left 04/01/2024 Procedure: AMPUTATION LEFT HALLUX; Surgeon: Shameka Castillo DPM; Location: [facility] [place] [facility] Main OR; Service: Podiatry Family History Problem Relation Age of Onset Seizures Mother Diabetes Father Hypertension Father Diabetes type II Father Current Outpatient Medications Medication Sig Dispense Refill alcohol swabs PadM Apply 1 (one) Swab. topically 5 (five) times a day Clean area before administering insulin. . 150 each 5 blood sugar diagnostic (glucose blood) strips by Miscellaneous route 3 (three) times a day As a backup to CGM to test blood sugar. One Touch Verio . 100 strip 5 busPIRone (BUSPAR) 30 MG tablet Take 1 (one) tablet (30 mg total) by mouth 2 (two) times a day . Dexcom G6 Vibrator Operator Misc Use as directed for continuous glucose monitoring . 1 each 0 Dexcom G6 Sensor Simran Use as directed for continuous glucose monitoring change every 10 days . 3 each 11 Dexcom G6 Transmitter Smiran Use as directed for continuous glucose monitoring change every 3 months . 1 each 3 glucagon (Gvoke HypoPen 2-Pack) 1 mg/0.2 mL AtIn Inject 0.2 mL (1 mg total) under the skin as needed . 2 mL 1 hydrOXYzine (VISTARIL) 50 MG capsule Take 1 (one) capsule (50 mg total) by mouth 3 (three) times a day as needed . inhalational spacing device inhaler Use as instructed . 1 each 2 insulin lispro (AdmeLOG,HumaLOG) 100 unit/mL injection Inject up to 150 units once daily via pump . 50 mL 5 INSULIN PUMP CARTRIDGE SUBQ Inject under the skin Use as directed . lamoTRIgine (LAMICTAL) 25 MG tablet Take 1 (one) tablet (25 mg total) by mouth 2 (two) times a day . 60 tablet 2 lancets Misc 1 Lancet by Miscellaneous route 3 (three) times a day . 100 each 5 levETIRAcetam (KEPPRA) 1000 MG tablet Take 1 (one) tablet (1,000 mg total) by mouth 2 (two) times a day . 180 tablet 1 metFORMIN (GLUCOPHAGE) 1000 MG tablet Take 1 (one) tablet (1,000 mg total) by mouth 2 (two) times a day . 60 tablet 5 miscellaneous medical supply Misc 1 each by Miscellaneous route daily . 100 each 2 omeprazole (PRILOSEC) 40 MG capsule Take 1 (one) capsule (40 mg total) by mouth daily . 90 capsule 1 Omnipod 5 G6 Pods, Gen 5, Crtg Omnipod 5 G6-G7 Pods, Gen 5, Crtg Omnipod Insulin Refill Crtg ondansetron (ZOFRAN-ODT) 4 MG disintegrating tablet Dissolve 1 (one) tablet (4 mg total) on top of tongue every 8 (eight) hours as needed for nausea . 20 tablet 0 oxyCODONE-acetaminophen (PERCOCET) 5-325 mg per tablet Take 1 (one) tablet by mouth every 6 (six) hours as needed for pain (Days supply per fill: 30) . 15 tablet 0 oxyCODONE-acetaminophen (PERCOCET) 5-325 mg per tablet Take 1 (one) tablet by mouth 2 (two) times a day as needed for pain . 60 tablet 0 paliperidone (INVEGA) 6 MG 24 hr tablet Take 1 (one) tablet (6 mg total) by mouth daily . pregabalin (LYRICA) 75 MG capsule Take 1 (one) capsule (75 mg total) by mouth 2 (two) times a day (Days supply per fill: 30) . 60 capsule 0 vitamin with Ca-Iron-FA 27-1 mg Tab Take 1 (one) tablet by mouth daily . QUEtiapine (SEROQUEL) 400 MG tablet Take 2 (two) tablets (800 mg total) by mouth nightly . 60 tablet 0 Rexulti 1 mg Tab TAKE 1 TABLET DAILY FOR 7 DAYS, THEN 2 DAILY FOR 7 DAYS AND AFTER IF TOLERATED FOR PSYCHOSIS timolol (TIMOPTIC) 0.5 % ophthalmic solution Administer 1 (one) drop into the left eye daily . tiZANidine (Zanaflex) 4 MG tablet Take 2 tabs p.o. nightly . 60 tablet 0 albuterol (PROVENTIL) 2.5 mg /3 mL (0.083 %) nebulizer solution Take 3 mL (2.5 mg total) by nebulization every 6 (six) hours as needed for wheezing or shortness of breath . 75 mL 3 albuterol 90 mcg/actuation inhaler Inhale 1 (one) puff every 4 to 6 hours as needed for shortness of breath or wheezing . 18 g 3 atorvastatin (LIPITOR) 80 MG tablet Take 1 (one) tablet (80 mg total) by mouth daily . 90 tablet 1 chlorthalidone (HYGROTON) 25 MG tablet Take 1 (one) tablet (25 mg total) by mouth daily . 90 tablet 1 citalopram (CELEXA) 40 MG tablet Take 1 (one) tablet (40 mg total) by mouth daily . 90 tablet 1 levothyroxine (SYNTHROID, LEVOTHROID) 75 MCG tablet Take 1 (one) tablet (75 mcg total) by mouth once daily . 90 tablet 1 lisinopriL (PRINIVIL,ZESTRIL) 40 MG tablet Take 1 (one) tablet (40 mg total) by mouth daily . 90 tablet 1 loratadine (CLARITIN) 10 mg tablet Take 1 (one) tablet (10 mg total) by mouth daily . 90 tablet 1 metoprolol succinate (TOPROL-XL) 50 MG 24 hr tablet Take 1 (one) tablet (50 mg total) by mouth daily . 90 tablet 1 nortriptyline (PAMELOR) 25 MG capsule Take 1 (one) capsule (25 mg total) by mouth nightly . 90 capsule 1 pantoprazole (PROTONIX) 40 MG tablet Take 1 (one) tablet (40 mg total) by mouth daily . 90 tablet 1 polyethylene glycol (MIRALAX) 17 gram powder Take 17 (seventeen) g by mouth daily as needed (constipation) . 100 packet 1 traZODone (DESYREL) 100 MG tablet Take 1 (one) tablet (100 mg total) by mouth nightly as needed for sleep . 90 tablet 1 zinc oxide-white petrolatum 17-57 % Pste Apply 1 Application topically daily . 113 g 2 No current facility-administered medications for this visit. Allergies Allergen Reactions Iodides Other (See Comments) Renal compromise Ketorolac Hives, Other (See Comments), Rash and GI Intolerance Messes with seizures Unsure of reaction Tramadol Hives, Rash, Other (See Comments) and GI Intolerance Codeine Other reaction(s): Aggressive Behavior Propoxyphene N-Acetaminophen GI Intolerance Adhesive Itching Compazine [Prochlorperazine] Other (See Comments) She reports Compazine made her feel anxious and grumpy Ct: Iodinated Contrast- Oral And Iv Dye Other (See Comments) Shuts my kidneys down Fentanyl Ibuprofen Other (See Comments) shuts kidney down Latex Dermatitis Linezolid Nausea And Vomiting and GI Intolerance Lorazepam Other (See Comments) Nsaids (Non-Steroidal Anti-Inflammatory Drug) shuts my kidney's down Vancomycin Other (See Comments) Shuts kidney down Propoxyphene GI Intolerance reports that she has quit smoking. Her smoking use included cigarettes. She started smoking about 9 years ago. She has a 18.6 pack-year smoking history. She has been exposed to tobacco smoke. She has never used smokeless tobacco. She reports current drug use. Drug: Marijuana. She reports that she does not drink alcohol. reports that she has quit smoking. Her smoking use included cigarettes. She started smoking about 9 years ago. She has a 18.6 pack-year smoking history. She has been exposed to tobacco smoke. She has never used smokeless tobacco. Current medication list and allergies reviewed and updated with patient. Past medical history reviewed. Past Surgical History reviewed. Personal history Social History reviewed. Family history Family History reviewed. REVIEW OF SYSTEMS: Review of Systems Constitutional: Negative for activity change, appetite change, fatigue, fever and unexpected weight change. HENT: Negative for hearing loss. Eyes: Positive for visual disturbance. Respiratory: Positive for shortness of breath. Negative for wheezing. Cardiovascular: Negative for chest pain and leg swelling. Gastrointestinal: Positive for constipation. Negative for abdominal pain, diarrhea, nausea and vomiting. Genitourinary: Negative for flank pain. Musculoskeletal: Positive for arthralgias and back pain. Negative for gait problem and joint swelling. Skin: Negative for rash. Neurological: Negative for dizziness, seizures, facial asymmetry and headaches. Psychiatric/Behavioral: Negative for agitation and behavioral problems. The patient is nervous/anxious. All other systems reviewed and are negative. PHYSICAL EXAM: Vitals: 08/02/24 1425 08/02/24 1513 BP: (!) 129/92 122/83 BP Location: Left arm Left arm Patient Position: Sitting Sitting BP Cuff Size: X-large Adult Adult Pulse: 88 SpO2: 95% Height: 5' 2 Physical Exam Vitals and nursing note reviewed. Constitutional: General: She is not in acute distress. Appearance: Normal appearance. She is not toxic-appearing or diaphoretic. HENT: Head: Normocephalic and atraumatic. Eyes: Extraocular Movements: Extraocular movements intact. Conjunctiva/sclera: Conjunctivae normal. Neck: Thyroid: No thyromegaly. Cardiovascular: Rate and Rhythm: Normal rate and regular rhythm. Heart sounds: No murmur heard. Pulmonary: Effort: Pulmonary effort is normal. Breath sounds: Normal breath sounds. No wheezing. Abdominal: General: Abdomen is flat. Palpations: Abdomen is soft. Musculoskeletal: Cervical back: Neck supple. Skin: General: Skin is warm and dry. Neurological: General: No focal deficit present. Mental Status: She is alert and oriented to person, place, and time. Mental status is at baseline. Psychiatric: Mood and Affect: Mood normal. Behavior: Behavior normal. Results Assessment & Plan Assessment & Plan Bipolar DO With worsening anxiety/panic attacks. Continue follow-up with Jenelle . Continue current medications as prescribed. Discharged from [facility] due to no-shows. 2. Chronic Pain of Both Knees She reports difficulty getting up after falls due to right knee pain. An x-ray of her knees will be ordered. A referral to physical therapy will be made for aquatic exercises to help manage her knee pain. If the x-ray shows significant findings, a referral to orthopedics for potential injections will be considered. 3. Lumbar DDD Per history, referral to spine surgery placed at patient's request. Follows with pain management. 4. Chronic Pain Syndrome Following with Dr. Velez of Pain Management. Continue Percocet as well as Lyrica. 5. Diabetic Foot Ulcers Follows with Podiatry, continue plan of care. 6. DM2 She has an upcoming appointment with endocrinology at [facility] to better manage her diabetes. Her A1c levels will be checked during her blood work. She is advised to maintain good foot hygiene and monitor for any new blisters or ulcers. Continue insulin pump and metformin for now. 7. HTN BP stable in office. Continue lisinopril to 40 mg daily, Toprol-XL 50 mg once daily, chlorthalidone 25 mg daily. 8. Headaches Has been referred to Neuro at [facility]. Continue nortriptyline 25mg qhs for prophylaxis 9. Abnormal Skin Pigmentation Call to reschedule with dermatology 10. COPD No recent flares. Continue albuterol inhaler as well as nebulizers. 11. Hypothyroidism Continue levothyroxine 75 mcg once daily. 12. History of Stroke Continue statin 13. Seizures Follows with Dr. Head of Neurology for these. Continue Keppra 1000 mg twice daily. 14. HLD Continue atorvastatin 40 mg nightly, repeat lipid panel. 15. Urinary Incontinence Chronic issue 16. GERD Continue PPI 17. Family hx of Pulmonary Fibrosis Is supposed to be establishing with an external shingles roofer for evaluation. 18. Candidiasis Continue nystatin powder PRN 19. Insomnia Continue trazodone 100mg qhs PRN 20. B12 Deficiency Continue supplementation. 21. Vitamin D Deficiency Continue supplementation. 22. Health Maintenance. A mammogram will be ordered. Blood work will be ordered to monitor her overall health, including A1c levels. Diagnoses and all orders for this visit: Bipolar 1 disorder ([facility]) - citalopram (CELEXA) 40 MG tablet; Take 1 (one) tablet (40 mg total) by mouth daily . Chronic pain of both knees - Ambulatory Ref to [facility] (PT/OT/ST); Future Degeneration of intervertebral disc of lumbar region with discogenic back pain - Ambulatory referral to Spine Surgery; Future Chronic pain syndrome Diabetic ulcer of left great toe ([facility]) Type 2 diabetes mellitus with diabetic polyneuropathy, with long-term current use of insulin ([facility]) - Hemoglobin A1c; Future - Hemoglobin A1c Primary hypertension - chlorthalidone (HYGROTON) 25 MG tablet; Take 1 (one) tablet (25 mg total) by mouth daily . - lisinopriL (PRINIVIL,ZESTRIL) 40 MG tablet; Take 1 (one) tablet (40 mg total) by mouth daily . - metoprolol succinate (TOPROL-XL) 50 MG 24 hr tablet; Take 1 (one) tablet (50 mg total) by mouth daily . - CBC and Differential; Future - Comprehensive Metabolic Panel; Future - Comprehensive Metabolic Panel Chronic nonintractable headache, unspecified headache type - nortriptyline (PAMELOR) 25 MG capsule; Take 1 (one) capsule (25 mg total) by mouth nightly . Abnormal pigmentation of skin Chronic obstructive pulmonary disease, unspecified COPD type ([facility]) - albuterol (PROVENTIL) 2.5 mg /3 mL (0.083 %) nebulizer solution; Take 3 mL (2.5 mg total) by nebulization every 6 (six) hours as needed for wheezing or shortness of breath . - albuterol 90 mcg/actuation inhaler; Inhale 1 (one) puff every 4 to 6 hours as needed for shortness of breath or wheezing . - Miscellaneous DME Equipment Hypothyroidism, unspecified type - levothyroxine (SYNTHROID, LEVOTHROID) 75 MCG tablet; Take 1 (one) tablet (75 mcg total) by mouth once daily . - T4, Free; Future - TSH; Future - T4, Free - TSH History of stroke Seizures (HCC) Hypercholesterolemia - Lipid Panel; Future - Lipid Panel Urinary incontinence, unspecified type Gastroesophageal reflux disease, unspecified whether esophagitis present - pantoprazole (PROTONIX) 40 MG tablet; Take 1 (one) tablet (40 mg total) by mouth daily . Family history of pulmonary fibrosis Candidiasis of breast Insomnia, unspecified type - nortriptyline (PAMELOR) 25 MG capsule; Take 1 (one) capsule (25 mg total) by mouth nightly . - traZODone (DESYREL) 100 MG tablet; Take 1 (one) tablet (100 mg total) by mouth nightly as needed for sleep . Vitamin B12 deficiency Vitamin D deficiency Encounter for screening mammogram for malignant neoplasm of breast - Mammography Screening Bilateral; Future Encounter for health-related screening - Hepatitis C Ab with Reflex to HCV Virus Quantitation; Future - HIV Antibody (HIV1/HIV2); Future - Hepatitis C Ab with Reflex to HCV Virus Quantitation - HIV Antibody (HIV1/HIV2) Other orders - loratadine (CLARITIN) 10 mg tablet; Take 1 (one) tablet (10 mg total) by mouth daily . - polyethylene glycol (MIRALAX) 17 gram powder; Take 17 (seventeen) g by mouth daily as needed (constipation) . - zinc oxide-white petrolatum 17-57 % Pste; Apply 1 Application topically daily . - CBC Auto Differential I am managing and treating Addie Jean Baptiste's complex chronic condition(s) serving as the focal point for the patient s care for consistency and continuity over time. Condition and plan discussed with patient in detail, patient agrees with plan. Risk, benefits, and side effects of medicines discussed with the patient, patient agrees with plan. Recent laboratory / radiology / other study results discussed with patient. For any new medications prescribed today, patient was educated about indications for the medication, how to take the medication and potential side effects of the medications. Patient to return to office: Return in about 4 months (around 12/02/2024). Stephany Pelayo PA-C documented in this encounter [facility] 07-21-2024 History of Present illness Narrative Shower chair order, ins card and OV note faxed to [employer] [facility]. documented in this encounter [facility] 07-15-2024 Note [facility] [address] [place] [address] Subjective Patient ID: Addie Jean Baptitse is a 49 y.o. female here for Chief Complaint Patient presents with Acute Visit F2F for shower chair After discussing the use of ambient listening and audio recording in generating medical documentation, the patient verbally consented to use of this technology for today's visit. History of Present Illness The patient presents for F2F visit for shower chair. Also wanting multiple referrals to new specialists at [facility]. Has upcoming routine follow-up in our office in a few weeks. She is scheduled for a skin graft procedure on her foot next week with podiatry in [place] for diabetic foot ulcer. She has been experiencing two additional sores on the plantar surface of her foot, one located on the heel and the other near the big toe. She attributes her recent falls to these foot ulcers, which have significantly impaired her mobility. She reports severe foot pain, even when not bearing weight on her feet, which has led to episodes of crying. She has requested referrals to a neurologist, carton folder, and machine shop worker at [facility]. She has a history of pacemaker implantation, which was necessitated by SSS and syncope. She reports that the pacemaker has been dislodged from its pocket for approximately one year, and she is able to manipulate it. She was informed that the pacemaker would remain in place indefinitely. She also had a loop recorder implanted. She is seeking assistance in acquiring a medical alert button. Patient would benefit from a shower chair due to a history of seizures and multiple diabetic foot ulcers causing dizziness and increased risk of falls. Past medical/surgical history Past Medical History: Diagnosis Date Anxiety Bipolar 1 disorder (HCC) Chronic back pain Chronic kidney disease, stage 3 unspecified (HCC) Coronary artery disease Depression Diabetes mellitus (HCC) Hypertension MRSA (methicillin resistant Staphylococcus aureus) Pacemaker Seizures (HCC) Stroke (HCC) Past Surgical History: Procedure Laterality Date CHOLECYSTECTOMY FOOT SURGERY HYSTERECTOMY ORTHOPEDIC SURGERY left foot surgery PACEMAKER INSERTION NM AMPUTATION TOE METATARSOPHALANGEAL JOINT Left 04/01/2024 Procedure: AMPUTATION LEFT HALLUX; Surgeon: Shameka Castillo DPM; Location: [facility] Main OR; Service: Podiatry Family History Problem Relation Age of Onset Seizures Mother Diabetes Father Hypertension Father Diabetes type II Father Current Outpatient Medications Medication Sig Dispense Refill albuterol (PROVENTIL) 2.5 mg /3 mL (0.083 %) nebulizer solution Take 3 mL (2.5 mg total) by nebulization every 6 (six) hours as needed for wheezing or shortness of breath . 75 mL 3 albuterol 90 mcg/actuation inhaler Inhale 1 (one) puff every 4 to 6 hours as needed for shortness of breath or wheezing . 18 g 3 alcohol swabs PadM Apply 1 (one) Swab. topically 5 (five) times a day Clean area before administering insulin. . 150 each 5 atorvastatin (LIPITOR) 40 MG tablet Take 1 (one) tablet (40 mg total) by mouth nightly . 90 tablet 0 blood sugar diagnostic (glucose blood) strips by Miscellaneous route 3 (three) times a day As a backup to CGM to test blood sugar. One Touch Verio . 100 strip 5 busPIRone (BUSPAR) 30 MG tablet Take 1 (one) tablet (30 mg total) by mouth 2 (two) times a day . Dexcom G6 Vibrator Operator Misc Use as directed for continuous glucose monitoring . 1 each 0 Dexcom G6 Sensor Simran Use as directed for continuous glucose monitoring change every 10 days . 3 each 11 Dexcom G6 Transmitter Simran Use as directed for continuous glucose monitoring change every 3 months . 1 each 3 glucagon (Gvoke HypoPen 2-Pack) 1 mg/0.2 mL AtIn Inject 0.2 mL (1 mg total) under the skin as needed . 2 mL 1 hydrOXYzine (VISTARIL) 50 MG capsule Take 1 (one) capsule (50 mg total) by mouth 3 (three) times a day as needed . inhalational spacing device inhaler Use as instructed . 1 each 2 insulin lispro (AdmeLOG,HumaLOG) 100 unit/mL injection Inject up to 150 units once daily via pump . 50 mL 5 INSULIN PUMP CARTRIDGE SUBQ Inject under the skin Use as directed . lancets Misc 1 Lancet by Miscellaneous route 3 (three) times a day . 100 each 5 levETIRAcetam (KEPPRA) 1000 MG tablet Take 1 (one) tablet (1,000 mg total) by mouth 2 (two) times a day . 180 tablet 1 levothyroxine (SYNTHROID, LEVOTHROID) 75 MCG tablet Take 1 (one) tablet (75 mcg total) by mouth once daily . 90 tablet 0 lidocaine (LMX) 4 % cream Apply topically 3 (three) times a day . 90 g 3 lisinopriL (PRINIVIL,ZESTRIL) 40 MG tablet Take 1 (one) tablet (40 mg total) by mouth daily . 90 tablet 1 loratadine (CLARITIN) 10 mg tablet Take 1 (one) tablet (10 mg total) by mouth daily . 90 tablet 1 metFORMIN (GLUCOPHAGE) 1000 MG tablet Take 1 (one) tablet (1,000 mg total) by mouth (more content not included)... [facility] 07-15-2024 History of Present illness Narrative [facility] INTER[facility]IC[facility] [address] [place] [address]. [place] [id number] Subjective Patient ID: Addie Jean Baptiste is a 49 y.o. female here for Chief Complaint Patient presents with Acute Visit F for shower chair After discussing the use of ambient listening and audio recording in generating medical documentation, the patient verbally consented to use of this technology for today's visit. History of Present Illness The patient presents for F visit for shower chair. Also wanting multiple referrals to new specialists at [facility]. Has upcoming routine follow-up in our office in a few weeks. She is scheduled for a skin graft procedure on her foot next week with podiatry in [place] for diabetic foot ulcer. She has been experiencing two additional sores on the plantar surface of her foot, one located on the heel and the other near the big toe. She attributes her recent falls to these foot ulcers, which have significantly impaired her mobility. She reports severe foot pain, even when not bearing weight on her feet, which has led to episodes of crying. She has requested referrals to a neurologist, carton folder, and machine shop worker at [facility]. She has a history of pacemaker implantation, which was necessitated by SSS and syncope. She reports that the pacemaker has been dislodged from its pocket for approximately one year, and she is able to manipulate it. She was informed that the pacemaker would remain in place indefinitely. She also had a loop recorder implanted. She is seeking assistance in acquiring a medical alert button. Patient would benefit from a shower chair due to a history of seizures and multiple diabetic foot ulcers causing dizziness and increased risk of falls. Past medical/surgical history Past Medical History: Diagnosis Date Anxiety Bipolar 1 disorder (HCC) Chronic back pain Chronic kidney disease, stage 3 unspecified (HCC) Coronary artery disease Depression Diabetes mellitus (HCC) Hypertension MRSA (methicillin resistant Staphylococcus aureus) Pacemaker Seizures (HCC) Stroke (HCC) Past Surgical History: Procedure Laterality Date CHOLECYSTECTOMY FOOT SURGERY HYSTERECTOMY ORTHOPEDIC SURGERY left foot surgery PACEMAKER INSERTION NM AMPUTATION TOE METATARSOPHALANGEAL JOINT Left 04/01/2024 Procedure: AMPUTATION LEFT HALLUX; Surgeon: Shameka Castillo DPM; Location: [facility] Main OR; Service: Podiatry Family History Problem Relation Age of Onset Seizures Mother Diabetes Father Hypertension Father Diabetes type II Father Current Outpatient Medications Medication Sig Dispense Refill albuterol (PROVENTIL) 2.5 mg /3 mL (0.083 %) nebulizer solution Take 3 mL (2.5 mg total) by nebulization every 6 (six) hours as needed for wheezing or shortness of breath . 75 mL 3 albuterol 90 mcg/actuation inhaler Inhale 1 (one) puff every 4 to 6 hours as needed for shortness of breath or wheezing . 18 g 3 alcohol swabs PadM Apply 1 (one) Swab. topically 5 (five) times a day Clean area before administering insulin. . 150 each 5 atorvastatin (LIPITOR) 40 MG tablet Take 1 (one) tablet (40 mg total) by mouth nightly . 90 tablet 0 blood sugar diagnostic (glucose blood) strips by Miscellaneous route 3 (three) times a day As a backup to CGM to test blood sugar. One Touch Verio . 100 strip 5 busPIRone (BUSPAR) 30 MG tablet Take 1 (one) tablet (30 mg total) by mouth 2 (two) times a day . Dexcom G6 Vibrator Operator Misc Use as directed for continuous glucose monitoring . 1 each 0 Dexcom G6 Sensor Simran Use as directed for continuous glucose monitoring change every 10 days . 3 each 11 Dexcom G6 Transmitter Simran Use as directed for continuous glucose monitoring change every 3 months . 1 each 3 glucagon (Gvoke HypoPen 2-Pack) 1 mg/0.2 mL AtIn Inject 0.2 mL (1 mg total) under the skin as needed . 2 mL 1 hydrOXYzine (VISTARIL) 50 MG capsule Take 1 (one) capsule (50 mg total) by mouth 3 (three) times a day as needed . inhalational spacing device inhaler Use as instructed . 1 each 2 insulin lispro (AdmeLOG,HumaLOG) 100 unit/mL injection Inject up to 150 units once daily via pump . 50 mL 5 INSULIN PUMP CARTRIDGE SUBQ Inject under the skin Use as directed . lancets Misc 1 Lancet by Miscellaneous route 3 (three) times a day . 100 each 5 levETIRAcetam (KEPPRA) 1000 MG tablet Take 1 (one) tablet (1,000 mg total) by mouth 2 (two) times a day . 180 tablet 1 levothyroxine (SYNTHROID, LEVOTHROID) 75 MCG tablet Take 1 (one) tablet (75 mcg total) by mouth once daily . 90 tablet 0 lidocaine (LMX) 4 % cream Apply topically 3 (three) times a day . 90 g 3 lisinopriL (PRINIVIL,ZESTRIL) 40 MG tablet Take 1 (one) tablet (40 mg total) by mouth daily . 90 tablet 1 loratadine (CLARITIN) 10 mg tablet Take 1 (one) tablet (10 mg total) by mouth daily . 90 tablet 1 metFORMIN (GLUCOPHAGE) 1000 MG tablet Take 1 (one) tablet (1,000 mg total) by mouth 2 (two) times a day . 60 tablet 5 metoprolol succinate (TOPROL-XL) 50 MG 24 hr tablet Take 1 (one) tablet (50 mg total) by mouth daily . 90 tablet 1 miscellaneous medical supply Misc 1 each by Miscellaneous route daily . 100 each 2 nortriptyline (PAMELOR) 25 MG capsule Take 1 (one) capsule (25 mg total) by mouth nightly . 90 capsule 1 nystatin (MYCOSTATIN) powder Apply topically 2 (two) times a day . 30 g 1 Omnipod 5 G6 Pods, Gen 5, Crtg Omnipod 5 G6-G7 Pods, Gen 5, Crtg Omnipod Insulin Refill Crtg ondansetron (ZOFRAN-ODT) 4 MG disintegrating tablet Dissolve 1 (one) tablet (4 mg total) on top of tongue every 8 (eight) hours as needed for nausea . 20 tablet 0 oxyCODONE-acetaminophen (PERCOCET) 5-325 mg per tablet Take 1 (one) tablet by mouth every 6 (six) hours as needed for pain (Days supply per fill: 30) . 15 tablet 0 oxyCODONE-acetaminophen (PERCOCET) 5-325 mg per tablet Take 1 (one) tablet by mouth 2 (two) times a day as needed for pain . 60 tablet 0 pantoprazole (PROTONIX) 40 MG tablet Take 1 (one) tablet (40 mg total) by mouth daily . 90 tablet 1 pregabalin (LYRICA) 75 MG capsule Take 1 (one) capsule (75 mg total) by mouth 2 (two) times a day (Days supply per fill: 30) . 60 capsule 0 vitamin with Ca-Iron-FA 27-1 mg Tab Take 1 (one) tablet by mouth daily . QUEtiapine (SEROQUEL) 400 MG tablet Take 2 (two) tablets (800 mg total) by mouth nightly . 60 tablet 0 Rexulti 1 mg Tab TAKE 1 TABLET DAILY FOR 7 DAYS, THEN 2 DAILY FOR 7 DAYS AND AFTER IF TOLERATED FOR PSYCHOSIS timolol (TIMOPTIC) 0.5 % ophthalmic solution Administer 1 (one) drop into the left eye daily . tiZANidine (Zanaflex) 4 MG tablet Take 2 tabs p.o. nightly . 60 tablet 0 traZODone (DESYREL) 100 MG tablet Take 1 (one) tablet (100 mg total) by mouth nightly as needed for sleep . 90 tablet 0 chlorthalidone (HYGROTON) 25 MG tablet Take 1 (one) tablet (25 mg total) by mouth daily . 90 tablet 1 citalopram (CELEXA) 40 MG tablet Take 1 (one) tablet (40 mg total) by mouth daily . 90 tablet 1 hydrOXYzine (VISTARIL) 25 MG capsule Take 1 (one) capsule (25 mg total) by mouth 2 (two) times a day as needed for itching or anxiety . (Patient not taking: Reported on 07/15/2024 .) 180 capsule 0 lamoTRIgine (LAMICTAL) 25 MG tablet Take 1 (one) tablet (25 mg total) by mouth 2 (two) times a day . 60 tablet 2 naloxone (NARCAN) 4 mg/actuation Rafael Gonzalez Administer 1 spray into one nostril for known or suspected opioid overdose. If patient worsens or does not respond, may repeat in 2-3 minutes. . (Patient not taking: Reported on 07/15/2024 .) 2 each 0 omeprazole (PRILOSEC) 40 MG capsule Take 1 (one) capsule (40 mg total) by mouth daily . 90 capsule 1 ondansetron (ZOFRAN-ODT) 4 MG disintegrating tablet Dissolve 1 (one) tablet (4 mg total) on top of tongue every 8 (eight) hours as needed for nausea . (Patient not taking: Reported on 07/15/2024 .) 20 tablet 1 No current facility-administered medications for this visit. Allergies Allergen Reactions Iodides Other (See Comments) Renal compromise Ketorolac Hives, Other (See Comments), Rash and GI Intolerance Messes with seizures Unsure of reaction Tramadol Hives, Rash, Other (See Comments) and GI Intolerance Codeine Other reaction(s): Aggressive Behavior Propoxyphene N-Acetaminophen GI Intolerance Adhesive Itching Compazine [Prochlorperazine] Other (See Comments) She reports Compazine made her feel anxious and grumpy Ct: Iodinated Contrast- Oral And Iv Dye Other (See Comments) Shuts my kidneys down Fentanyl Ibuprofen Other (See Comments) shuts kidney down Latex Dermatitis Linezolid Nausea And Vomiting and GI Intolerance Lorazepam Other (See Comments) Nsaids (Non-Steroidal Anti-Inflammatory Drug) shuts my kidney's down Vancomycin Other (See Comments) Shuts kidney down Propoxyphene GI Intolerance reports that she has quit smoking. Her smoking use included cigarettes. She started smoking about 9 years ago. She has a 18.6 pack-year smoking history. She has been exposed to tobacco smoke. She has never used smokeless tobacco. She reports current drug use. Drug: Marijuana. She reports that she does not drink alcohol. reports that she has quit smoking. Her smoking use included cigarettes. She started smoking about 9 years ago. She has a 18.6 pack-year smoking history. She has been exposed to tobacco smoke. She has never used smokeless tobacco. Current medication list and allergies reviewed and updated with patient. Past medical history reviewed. Past Surgical History reviewed. Personal history Social History reviewed. Family history Family History reviewed. REVIEW OF SYSTEMS: Review of Systems Constitutional: Negative for activity change, appetite change, fatigue, fever and unexpected weight change. HENT: Negative for hearing loss. Eyes: Negative for visual disturbance. Respiratory: Negative for shortness of breath and wheezing. Cardiovascular: Negative for chest pain and leg swelling. Gastrointestinal: Negative for abdominal pain, diarrhea, nausea and vomiting. Genitourinary: Negative for flank pain. Musculoskeletal: Positive for arthralgias. Negative for gait problem and joint swelling. Skin: Negative for rash. Neurological: Negative for dizziness, facial asymmetry and headaches. Psychiatric/Behavioral: Negative for agitation and behavioral problems. All other systems reviewed and are negative. PHYSICAL EXAM: Vitals: 07/15/24 1057 BP: 116/88 BP Location: Left arm Patient Position: Sitting BP Cuff Size: X-large Adult Pulse: 87 SpO2: 98% Height: 5' 2 Physical Exam Vitals and nursing note reviewed. Constitutional: General: She is not in acute distress. Appearance: Normal appearance. She is not toxic-appearing or diaphoretic. HENT: Head: Normocephalic and atraumatic. Eyes: Extraocular Movements: Extraocular movements intact. Conjunctiva/sclera: Conjunctivae normal. Neck: Thyroid: No thyromegaly. Cardiovascular: Rate and Rhythm: Normal rate and regular rhythm. Heart sounds: No murmur heard. Pulmonary: Effort: Pulmonary effort is normal. Breath sounds: Normal breath sounds. No wheezing. Abdominal: General: Abdomen is flat. Palpations: Abdomen is soft. Musculoskeletal: Cervical back: Neck supple. Skin: General: Skin is warm and dry. Neurological: General: No focal deficit present. Mental Status: She is alert and oriented to person, place, and time. Mental status is at baseline. Psychiatric: Mood and Affect: Mood normal. Behavior: Behavior normal. Results Assessment & Plan Assessment & Plan Seizures Per history, requesting RF to neurology at [facility]. No known recent episodes. At increased risk for falls thus ordered shower chair. 2. Migraines Per history, no acute concerns. RF to neurology as above. 3. HTN BP stable in office today, continue current medications. F/u cardiology 4. SSS S/p PPM, RF to cardiology at [facility] per patient's request. 5. DM2 RF to Endocrinology at [facility] per patient's request 6. GERD Continue PPI Diagnoses and all orders for this visit: Seizures (HCC) - Ambulatory referral to Neurology; Future - Shower chair Chronic nonintractable headache, unspecified headache type - Ambulatory referral to Neurology; Future Primary hypertension Sick sinus syndrome (HCC) - Ambulatory referral to Cardiology; Future Type 2 diabetes mellitus with diabetic polyneuropathy, with long-term current use of insulin (HCC) - Ambulatory referral to Endocrinology; Future Gastroesophageal reflux disease, unspecified whether esophagitis present Other orders - omeprazole (PRILOSEC) 40 MG capsule; Take 1 (one) capsule (40 mg total) by mouth daily . I am managing and treating Addie Jean Baptiste's complex chronic condition(s) serving as the focal point for the patient s care for consistency and continuity over time. Condition and plan discussed with patient in detail, patient agrees with plan. Risk, benefits, and side effects of medicines discussed with the patient, patient agrees with plan. Recent laboratory / radiology / other study results discussed with patient. For any new medications prescribed today, patient was educated about indications for the medication, how to take the medication and potential side effects of the medications. Patient to return to office: Return if symptoms worsen or fail to improve. Stephany Pelayo PA-C documented in this encounter [facility] 07-14-2024 Telephone encounter Note Percocet can remain at BID dosing for now. She can discuss this with Dr Velez in July [facility] 07-14-2024 Miscellaneous Notes Percocet can remain at BID dosing for now. She can discuss this with Dr Velez in July Pt lvm asking if rx sent. Returned call and reminded pt again that it can take up to 72 working hours for rx to get to the pharmacy. Also reinforced teaching on when to request refills, to call pharmacy to check on rx, and that calling multiple times can slow down the process. Pt also reported that she had a seizure and was not talking normally. Noted slightly slurred speech. Encounter in [facility] dated today with PCP addressing seizure. Pt called to check on rx request. She states that her nitrate operator was supposed to call our office to request allowing pt to take Percocet more than once daily. Looking at rx written 06/12/24 she was being weaned down and current dose is written as bid. Pt informed of this. Pt also only called in request yesterday and fill is due today. Reminded her to call 7 days prior to fill date. She was surprised by this. Reminded that we have requested this for more than a year. She verbalized understanding. documented in this encounter [facility] 07-14-2024 Telephone encounter Note Pt lvm asking if rx sent. Returned call and reminded pt again that it can take up to 72 working hours for rx to get to the pharmacy. Also reinforced teaching on when to request refills, to call pharmacy to check on rx, and that calling multiple times can slow down the process. Pt also reported that she had a seizure and was not talking normally. Noted slightly slurred speech. Encounter in [facility] dated today with PCP addressing seizure. [facility] 07-13-2024 Telephone encounter Note Pt called to check on rx request. She states that her nitrate operator was supposed to call our office to request allowing pt to take Percocet more than once daily. Looking at rx written 06/12/24 she was being weaned down and current dose is written as bid. Pt informed of this. Pt also only called in request yesterday and fill is due today. Reminded her to call 7 days prior to fill date. She was surprised by this. Reminded that we have requested this for more than a year. She verbalized understanding. [facility] 07-05-2024 History of Present illness Narrative Images from the original note were not included. Patient: Addie Jean Baptiste : 1975 PCP: Natalia Provider MD Jeanne SUBJECTIVE This is a 49 y.o. female that presents today for a chief complaint of a nonhealing ulceration to the lateral aspect of the left 5th metatarsal region.. Patient states ulcer has been present for the past Several weeks. Had a previous amputation of the left great toe They have attempted previous treatment which consisted of the following: local wound care debridements in the past by her other physician. Offloading to no avail. The patient somewhat control diabetic. Blood glucose levels have been running mildly elevated Lab Results Component Value Date HGBA1C 9.9 (H) 03/22/2024 Allergies: Allergies Allergen Reactions Fentanyl GI intolerance Other Reaction(s): Renal Failure Ibuprofen Hives Other Reaction(s): Other (See Comments), Renal Failure shuts kidney down Iodinated Contrast Media Other and Unknown Renal compromise Shuts my kidneys down Linezolid GI intolerance and Nausea And Vomiting Other Reaction(s): Renal Failure Lorazepam Hallucinations Other Reaction(s): Other (See Comments), Renal Failure Morphine And Codeine Other, Rash and GI intolerance Other Reaction(s): Aggressive Behavior hives Get very angry Other reaction(s): Aggressive Behavior Tramadol GI intolerance, Hives, Rash, Seizures and Unknown Other Reaction(s): Other (See Comments) seizures Vancomycin Other Reaction(s): Contraindication-Medical Surgical, KIDNEY & URINARY TRACT DISORDERS EXCEPT RENAL FAILURE W MAJOR CC, Other (See Comments) Shut down her kidneys Shuts my kidneys down Shuts kidney down Latex Dermatitis, Hives and Rash Other reaction(s): Dermatitis Nsaids shuts my kidney's down Prochlorperazine Other Reaction(s): Other (See Comments) She reports Compazine made her feel anxious and grumpy Propoxyphene GI intolerance and Nausea And Vomiting Past Medical History: Past Medical History: Diagnosis Date Diabetes mellitus (CMS/HCC) Hypertension (CMS/HCC) Medications: Current Outpatient Medications: amoxicillin-clavulanate (Augmentin) 875-125 MG tablet, Take 1 tablet (875 mg) by mouth in the morning and 1 tablet (875 mg) in the evening. Take after meals. Do all this for 10 days. Take 1 pill p.o. b.I.d. for 10 days., Disp: 20 tablet, Rfl: 0 aspirin 81 MG EC tablet, 1 (one) time each day at the same time., Disp: , Rfl: atorvastatin (Lipitor) 40 MG tablet, Take 40 mg by mouth in the evening., Disp: , Rfl: benzonatate (Tessalon) 200 MG capsule, Take 200 mg by mouth 3 (three) times a day as needed for cough., Disp: , Rfl: chlorthalidone (Hygroton) 25 MG tablet, TAKE 1 TABLET BY MOUTH ONCE DAILY IN THE MORNING WITH FOOD, Disp: , Rfl: Emgality 120 MG/ML auto-injector, USE DIRECTED ONCE EVERY MONTH FOR 30 DAYS, Disp: , Rfl: ergocalciferol (Vitamin D2) 1.25 MG (64003 UT) capsule, Take 1 capsule by mouth 1 (one) time per week., Disp: , Rfl: Florastor 250 MG capsule, Take 250 mg by mouth in the morning and 250 mg in the evening. Take with meals., Disp: , Rfl: fluconazole (Diflucan) 150 MG tablet, TAKE 1 TABLET BY MOUTH ONCE DAILY NOW THEN 1 ONCE A WEEK DIRECTED, Disp: , Rfl: hydrOXYzine pamoate (Vistaril) 25 MG capsule, TAKE 1 CAPSULE BY MOUTH EVERY DAY AT BEDTIME NEEDED FOR INSOMNIA, Disp: , Rfl: Insulin Lispro 100 UNIT/ML solution, INJECT UP TO 150 UNITS ONCE DAILY WITH INSULIN PUMP, Disp: , Rfl: levETIRAcetam (Keppra) 750 MG tablet, Take 1 tablet by mouth every 12 (twelve) hours., Disp: , Rfl: lisinopril 40 MG tablet, Take 40 mg by mouth in the morning., Disp: , Rfl: metoprolol tartrate (Lopressor) 25 MG tablet, every 12 (twelve) hours., Disp: , Rfl: metoprolol tartrate (Lopressor) 50 MG tablet, Take 50 mg by mouth in the morning and 50 mg in the evening. Take with meals., Disp: , Rfl: nystatin (Mycostatin) cream, APPLY CREAM TOPICALLY TO AFFECTED AREA TWICE DAILY FOR 5 DAYS, Disp: , Rfl: nystatin (Mycostatin) ointment, APPLY OINTMENT TOPICALLY TWICE DAILY FOR 10 DAYS, Disp: , Rfl: ofloxacin (Ocuflox) 0.3 % ophthalmic solution, INSTILL 1 DROP INTO LEFT EYE FOUR TIMES A DAY, Disp: , Rfl: prednisoLONE acetate (Pred-Forte) 1 % ophthalmic suspension, INSTILL 1 DROP INTO LEFT EYE FOUR TIMES A DAY, Disp: , Rfl: pregabalin (Lyrica) 100 MG capsule, Take 100 mg by mouth in the morning and 100 mg before bedtime., Disp: , Rfl: promethazine (Phenergan) 25 MG tablet, every 12 (twelve) hours., Disp: , Rfl: QUEtiapine (SEROquel) 400 MG tablet, Take 800 mg by mouth at bedtime., Disp: , Rfl: sulfamethoxazole-trimethoprim (Bactrim DS) 800-160 MG per tablet, , Disp: , Rfl: sulfamethoxazole-trimethoprim (Bactrim DS) 800-160 MG per tablet, Take 1 tablet by mouth in the morning and 1 tablet before bedtime. Do all this for 10 days. TAKE 1 PILL P.O. B.I.D. FOR 10 DAYS., Disp: 20 tablet, Rfl: 0 terconazole (Terazol 3) 0.8 % vaginal cream, INSERT ONE APPLICATORFUL VIA VAGINAL ROUTE ONCE DAILY AT BEDTIME FOR 3 DAYS, Disp: , Rfl: tiZANidine (Zanaflex) 6 MG capsule, TAKE 2 CAPSULES BY MOUTH AT BEDTIME DIRECTED, Disp: , Rfl: Ventolin HFA 108 (90 Base) MCG/ACT inhaler, INHALE 1 PUFF BY MOUTH EVERY 4 HOURS NEEDED, Disp: , Rfl: Social History: Social History Socioeconomic History Marital status: Spouse name: Not on file Number of children: Not on file Years of education: Not on file Highest education level: Not on file Occupational History Not on file Tobacco Use Smoking status: Never Smokeless tobacco: Never Vaping Use Vaping status: Never Used Substance and Sexual Activity Alcohol use: Defer Drug use: Defer Sexual activity: Defer Other Topics Concern Not on file Social History Narrative Not on file Social Drivers of Health Financial Resource Strain: Medium Risk (01/13/2024) Received from [facility] Overall Financial Resource Strain (CARDIA) Difficulty of Paying Living Expenses: Somewhat hard Food Insecurity: No Food Insecurity (04/27/2024) Received from [facility] Hunger Vital Sign Worried About Running Out of Food in the Last Year: Never true Ran Out of Food in the Last Year: Never true Transportation Needs: No Transportation Needs (04/27/2024) Received from [facility] PRAPARE - Transportation Lack of Transportation (Medical): No Lack of Transportation (Non-Medical): No Physical Activity: Not on file Stress: Not on file Social Connections: Not on file Intimate Partner Violence: Not At Risk (04/27/2024) Received from [facility] Humiliation, Afraid, Rape, and Kick questionnaire Fear of Current or Ex-Partner: No Emotionally Abused: No Physically Abused: No Sexually Abused: No Housing Stability: Low Risk (04/27/2024) Received from [facility] Housing Stability Vital Sign Unable to Pay for Housing in the Last Year: No Number of Times Moved in the Last Year: 1 Homeless in the Last Year: No ROS: CONSTITUTIONAL: DENIES FEVER, CHILLS, NAUSEA, VOMITING GI: DENIES ABDOMINAL PAIN, CRAMPING, LOOSE STOOL, GASTRIC ULCERS MUSCULOSKELETAL: DENIES LOW BACK PAIN, KNEE PAIN, SYSTEMIC ARTHRITIS NEUROLOGIC: DENIES BURNING, TINGLING, TRANSIENT PARALYSIS OBJECTIVE PHYSICAL EXAM: DERM: ulceration present to the level of subcutaneous tissue. The ulcer measures 1 cm x 1.5 cm x .4 cm The ulceration is 80 percent fibrotic, 20 percent granular, 0 percent necrotic There is mild Localized cellulitis. There is no ascending cellulitis . no lymphadenopathy noted. Wound depth of the wound to the level of subcutaneous tissue Vascular: Dorsalis pedis posterior tibial pulses are palpable Lower extremity/pedal edema/ venous insufficiency noted mild venous stasis disease noted Neuro: Lincoln-Oniel 5.07 monofilament absent Vibratory sensation diminished Musculoskeletal: Muscle strength +5/5 all intrinsic and extrinsic muscles tested ASSESSMENT 1. Type II diabetes mellitus with neurological manifestations (CMS/HCC) 2. Chronic foot ulcer with fat layer exposed, left (CMS/HCC) 3. Cellulitis of left foot PLAN Patient was seen today and evaluated. Educated the patient the etiology of the ulceration. The wound was mechanically debrided to the level of subcutaneous tissue via sharp debridement. Wound was prepared for epidermal graft which will be performed on Thursday morning. Wound preparation performed today we skive the edges of the wound to a nice 100 percent granular bed recommended topical Compression was utilized for hemostasis. Anesthetic was not necessary secondary to peripheral neuropathy. Patient was instructed to change the dressing daily with topical antibiotics and offloading the area with the use of offloading device. Recommended Augmentin 875 b.I.d. for 10 days and topical antibiotics be applied. Educated offload the area and a surgical shoe which she currently has follow up with me on Thursday for the procedure. LUPE Capellan documented in this encounter [facility] 06-07-2024 History of Present illness Narrative Confirmation received. Pending scanning. Received fax from [email or web address] for incontinence supplies. Forms completed, signed and faxed. Waiting for confirmation. documented in this encounter [facility] 05-31-2024 History of Present illness Narrative error documented in this encounter [facility] 05-27-2024 Telephone encounter Note Pt is scheduled for appt with [facility] on 06/08/24. [facility] 05-27-2024 Miscellaneous Notes Pt is scheduled for appt with [facility] on 06/08/24. ----- Message from Arcelia Whyte sent at 05/27/2024 1:23 PM EST ----- Regarding: Calling back with updated information Contact: Patient Patient called in states was suppose to call her [email or web address] and make an appointment and then call back with that information. Patient advised she is now scheduled for 06/08/24 at 1:20 and is requesting that her QUEtiapine (SEROQUEL) 400 MG tablet () be filled. Patient states she was not aware that the office closed early today but needs the fill as soon as possible. Requesting a call back at [phone]. Thanks documented in this encounter [facility] 05-27-2024 Telephone encounter Note ----- Message from Arcelia Whyte sent at 05/27/2024 1:23 PM EST ----- Regarding: Calling back with updated information Contact: Patient Patient called in [facility] was suppose to call her [facility] and make an appointment and then call back with that information. Patient advised she is now scheduled for 06/08/24 at 1:20 and is requesting that her QUEtiapine (SEROQUEL) 400 MG tablet () be filled. Patient states she was not aware that the office closed early today but needs the fill as soon as possible. Requesting a call back at [phone]. Thanks [facility] 05-13-2024 Instructions Mihai Elizalde CNP - 05/13/2024 9:00 AM EST Continue Percocet 5-325 one tablet every 4 hours as needed Continue Lyrica 75mg one capsule twice daily Continue tizanidine 4mg two tablets nightly as needed Follow up with Podiatry [facility] to monitor progress of healing from left great toe infection Complete urine drug screen Please call Refill Line or send MyChart Refill Request to Pain Management office 7 days before each fill date, every month. Follow up with Dr. Velez in 3 months documented in this encounter [facility] 05-13-2024 Note [facility] Interventional Pain Management Office Note Patient Name: Addie Jean Baptiste Referring Physician: No ref. provider found Date of : 1975 PCP: Stephany Pelayo PA-C Date of Service: 05/13/24 History of Present Illness Last office visit: 02/02/24 Dr Agustin MENENDEZ Narrative: Chief complaint: Lower back pain and left great toe The patient, Addie, presents with severe left foot pain due to an infection in her left great toe. She has a history of recurrent infections and diabetic neuropathy, and is currently on antibiotics and taking Percocet for pain. She also reports back pain, incontinence, and recent kidney function issues related to high blood pressure. She has not participated in water therapy due to left foot pain issues. - The patient was hospitalized from January 17 for five to seven days, during which she received Percocet every four hours for pain management. - Her toe is currently described as open flesh, with no amputation performed at this point. - The patient has a history of recurrent infections in the affected toe, occurring annually. - She mentions a previous hospitalization at [facility], where a foot amputation was considered but refused by the patient. - The infection has now spread to her right foot as well. CT scan left foot without contrast 01/13/2024 1. There appears to be an ulcer along the distal aspect of the 1st toe with likely adjacent cellulitis. 2. No CT evidence of osteomyelitis in the 1st toe or remainder of the foot. 3. 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 No acute fracture is identified. There are corticated bony densities adjacent to the medial malleolus consistent with sequela of remote trauma. 4. 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 Pain characteristics: - She reports experiencing pain radiating from her waist down to her legs and feet. -She describes the pain as sharp and burning, with varying degrees of intensity. - She experiences nocturnal burning pain in her feet, legs, and kicking, which makes it difficult for her to return to sleep. - Resting in her hospital bed with her legs elevated alleviates her pain, but consistently using a heating pad does not. -VAS 9 out of 10 left toe, 8/10 for back pain Functionality: -She uses a cane at home and primarily uses a hospital bed, primarily for bathroom access. - She participated in water therapy a few years ago and is considering water aerobics. Additional medical info: -Her gait is unstable, leading to frequent falls. - She manages to get 4 to 5 hours of sleep per night. - She has had multiple falls this year, including a hand injury from a fall early Thursday morning. -She is incontinent of both stool and urine Presence of spinal cord stimulator: no Presence of intrathecal pump: no Plan of care from last OV: 1. Left great toe infection treated with oral antibiotics 2. Water therapy followed by land therapy currently on hold due to blood pressure to infection 3. Discussed dietary modification and weight loss 4. Resume Lyrica 75 mg 1 p.o. twice daily 5. Change Percocet 5/325 1 p.o. every 6 hours prn x 30 days for acute left toe pain. Patient will start this with her current prescription filled recently on 01/26/2024. Patient will require early refill. 6. Continue tizanidine 4 mg 2 p.o. nightly only TODAY'S HISTORY: She had a left toe amputated and was recently discharged 2 weeks ago due to infection at the amputation site. She has finished 2 week course of doxycycline and has left open to air and cleaned and treated with neosporin and bandaids per Podiatry Dr. Castillo. She continues to have serosanguinous drainage. She is instructed to schedule a follow up [facility] with podiatry for monitoring - she expresses understanding. Her acute left toe pain is well managed with q4 Percocet 5-325, so we will maintain this for now as she heals. She continues Lyrica 75mg one capsule BID for management of neuropathy and tizandine 4mg TWO tablets nightly for muscle spasms. Denies falls. Denies paresthesias. Bowel and bladder are intact. OARRS/NARxCheck: Date controlled substance agreement signed: 12/09/23 Date of last drug screen: 12/18/23 Opioid Risk Tool: Past Medical History Past Medical History: Diagnosis Date Anxiety Bipolar 1 disorder (HCC) Chronic back pain Chronic kidney disease, stage 3 unspecified (HCC) Coronary artery disease Depression Diabetes mellitus (HCC) Hypertension MRSA (methicillin resistant Staphylococcus aureus) Pacemaker Seizures (HCC) Stroke (HCC) Past Surgical History Past Surgical History: Procedure Laterality Date CHOLECYSTECTOMY FOOT SURGERY HYSTERECTOMY ORTHOPEDIC SURGERY left foot surgery PACEMAKER INSERTION NM AMPUTATION TOE METATARSOPHA (more content not included)... [facility] 05-13-2024 History of Present illness Narrative [facility] Interventional Pain Management Office Note Patient Name: Addie Organ Referring Physician: No ref. provider found Date of : 1975 PCP: Stephany Pelayo PA-C Date of Service: 05/13/24 History of Present Illness Last office visit: 02/02/24 Dr Agustin MENENDEZ Narrative: Chief complaint: Lower back pain and left great toe The patient, Addie, presents with severe left foot pain due to an infection in her left great toe. She has a history of recurrent infections and diabetic neuropathy, and is currently on antibiotics and taking Percocet for pain. She also reports back pain, incontinence, and recent kidney function issues related to high blood pressure. She has not participated in water therapy due to left foot pain issues. - The patient was hospitalized from January 17 for five to seven days, during which she received Percocet every four hours for pain management. - Her toe is currently described as open flesh, with no amputation performed at this point. - The patient has a history of recurrent infections in the affected toe, occurring annually. - She mentions a previous hospitalization at [facility], where a foot amputation was considered but refused by the patient. - The infection has now spread to her right foot as well. CT scan left foot without contrast 01/13/2024 1. There appears to be an ulcer along the distal aspect of the 1st toe with likely adjacent cellulitis. 2. No CT evidence of osteomyelitis in the 1st toe or remainder of the foot. 3. 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 No acute fracture is identified. There are corticated bony densities adjacent to the medial malleolus consistent with sequela of remote trauma. 4. 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 Pain characteristics: - She reports experiencing pain radiating from her waist down to her legs and feet. -She describes the pain as sharp and burning, with varying degrees of intensity. - She experiences nocturnal burning pain in her feet, legs, and kicking, which makes it difficult for her to return to sleep. - Resting in her hospital bed with her legs elevated alleviates her pain, but consistently using a heating pad does not. -VAS 9 out of 10 left toe, 8/10 for back pain Functionality: -She uses a cane at home and primarily uses a hospital bed, primarily for bathroom access. - She participated in water therapy a few years ago and is considering water aerobics. Additional medical info: -Her gait is unstable, leading to frequent falls. - She manages to get 4 to 5 hours of sleep per night. - She has had multiple falls this year, including a hand injury from a fall early Thursday morning. -She is incontinent of both stool and urine Presence of spinal cord stimulator: no Presence of intrathecal pump: no Plan of care from last OV: 1. Left great toe infection treated with oral antibiotics 2. Water therapy followed by land therapy currently on hold due to blood pressure to infection 3. Discussed dietary modification and weight loss 4. Resume Lyrica 75 mg 1 p.o. twice daily 5. Change Percocet 5/325 1 p.o. every 6 hours prn x 30 days for acute left toe pain. Patient will start this with her current prescription filled recently on 01/26/2024. Patient will require early refill. 6. Continue tizanidine 4 mg 2 p.o. nightly only TODAY'S HISTORY: She had a left toe amputated and was recently discharged 2 weeks ago due to infection at the amputation site. She has finished 2 week course of doxycycline and has left open to air and cleaned and treated with neosporin and bandaids per Podiatry Dr. Castillo. She continues to have serosanguinous drainage. She is instructed to schedule a follow up [facility] with podiatry for monitoring - she expresses understanding. Her acute left toe pain is well managed with q4 Percocet 5-325, so we will maintain this for now as she heals. She continues Lyrica 75mg one capsule BID for management of neuropathy and tizandine 4mg TWO tablets nightly for muscle spasms. Denies falls. Denies paresthesias. Bowel and bladder are intact. OARRS/NARxCheck: Date controlled substance agreement signed: 12/09/23 Date of last drug screen: 12/18/23 Opioid Risk Tool: Past Medical History Past Medical History: Diagnosis Date Anxiety Bipolar 1 disorder (HCC) Chronic back pain Chronic kidney disease, stage 3 unspecified (HCC) Coronary artery disease Depression Diabetes mellitus (HCC) Hypertension MRSA (methicillin resistant Staphylococcus aureus) Pacemaker Seizures (HCC) Stroke (HCC) Past Surgical History Past Surgical History: Procedure Laterality Date CHOLECYSTECTOMY FOOT SURGERY HYSTERECTOMY ORTHOPEDIC SURGERY left foot surgery PACEMAKER INSERTION NM AMPUTATION TOE METATARSOPHALANGEAL JOINT Left 04/01/2024 Procedure: AMPUTATION LEFT HALLUX; Surgeon: Shameka Castillo DPM; Location: [facility] [place] Main OR; Service: Podiatry Social History Social History Tobacco Use Smoking status: Former Current packs/day: 1.00 Average packs/day: 1 pack/day for 18.4 years (18.4 ttl pk-yrs) Types: Cigarettes Start date: 09/30/2014 Passive exposure: Current Smokeless tobacco: Never Tobacco comments: Vaping 6 mg nicotine Vaping Use Vaping status: Every Day Substances: Nicotine, Flavoring Devices: Pre-filled or refillable cartridge Substance Use Topics Alcohol use: No Alcohol/week: 0.0 standard drinks of alcohol Drug use: Yes Types: Marijuana Comment: smoking as needed, last use thursday night Family History family history includes Diabetes in her father; Diabetes type II in her father; Hypertension in her father; Seizures in her mother. Physical Exam PACU Vitals 05/13/24 0832 BP: (!) 173/109 Pulse: 90 Body mass index is 51.32 kg/m . Wt Readings from Last 3 Encounters: 05/13/24 127.3 kg (280 lb 9.6 oz) 04/29/24 128.3 kg (282 lb 13.6 oz) 03/30/24 123.6 kg (272 lb 7.8 oz) Temp Readings from Last 3 Encounters: 04/29/24 97.5 F (36.4 C) (Oral) 04/04/24 97.8 F (36.6 C) (Oral) 01/18/24 97.7 F (36.5 C) (Oral) BP Readings from Last 3 Encounters: 05/13/24 (!) 173/109 04/29/24 114/73 04/04/24 (!) 149/87 Pulse Readings from Last 3 Encounters: 05/13/24 90 04/29/24 78 04/04/24 66 General Appearance: Alert, cooperative, no distress, appropriate for age, HEENT: Unremarkable Lungs: Clear to auscultation bilaterally, respirations unlabored Heart: Normal PMI, regular rate & rhythm, S1 and S2 normal, no murmurs, rubs, or gallop Skin/Hair/Nails: Skin warm, dry and intact, no rashes or abnormal dyspigmentation Neurologic: Alert and oriented x3, no cranial nerve deficits Musculoskeletal exam: Scant serosanguinous drainage from distal lateral aspect of left great toe amputation. Patient was wearing a sock without dressing. Medications Active Home Medications Medication Sig Take Last Dose On Take Morning of Surgery Comment(s) albuterol (PROVENTIL) 2.5 mg /3 mL (0.083 %) nebulizer solution Take 3 mL (2.5 mg total) by nebulization every 6 (six) hours as needed for wheezing or shortness of breath . albuterol 90 mcg/actuation inhaler Inhale 1 (one) puff every 4 to 6 hours as needed for shortness of breath or wheezing . alcohol swabs PadM Apply 1 (one) Swab. topically 5 (five) times a day Clean area before administering insulin. . atorvastatin (LIPITOR) 40 MG tablet Take 1 (one) tablet (40 mg total) by mouth nightly . blood sugar diagnostic (glucose blood) strips by Miscellaneous route 3 (three) times a day As a backup to CGM to test blood sugar. One Touch Verio . busPIRone (BUSPAR) 30 MG tablet Take 1 (one) tablet (30 mg total) by mouth 2 (two) times a day . chlorthalidone (HYGROTON) 25 MG tablet Take 1 (one) tablet (25 mg total) by mouth daily . citalopram (CELEXA) 40 MG tablet Take 1 (one) tablet (40 mg total) by mouth daily . Dexcom G6 Vibrator Operator Misc Use as directed for continuous glucose monitoring . Dexcom G6 Sensor Simran Use as directed for continuous glucose monitoring change every 10 days . Dexcom G6 Transmitter Simran Use as directed for continuous glucose monitoring change every 3 months . doxycycline hyclate (VIBRA-TABS) 100 MG tablet Take 1 (one) tablet (100 mg total) by mouth 2 (two) times a day for 14 days . glucagon (Gvoke HypoPen 2-Pack) 1 mg/0.2 mL AtIn Inject 0.2 mL (1 mg total) under the skin as needed . hydrOXYzine (VISTARIL) 25 MG capsule Take 1 (one) capsule (25 mg total) by mouth 2 (two) times a day as needed for itching or anxiety . inhalational spacing device inhaler Use as instructed . insulin lispro (AdmeLOG,HumaLOG) 100 unit/mL injection Inject up to 150 units once daily via pump . INSULIN PUMP CARTRIDGE SUBQ Inject under the skin Use as directed . lamoTRIgine (LAMICTAL) 25 MG tablet Take 1 (one) tablet (25 mg total) by mouth 2 (two) times a day . lancets Misc 1 Lancet by Miscellaneous route 3 (three) times a day . levETIRAcetam (KEPPRA) 1000 MG tablet Take 1 (one) tablet (1,000 mg total) by mouth 2 (two) times a day . levothyroxine (SYNTHROID, LEVOTHROID) 75 MCG tablet Take 1 (one) tablet (75 mcg total) by mouth once daily . lidocaine (LMX) 4 % cream Apply topically 3 (three) times a day . lisinopriL (PRINIVIL,ZESTRIL) 40 MG tablet Take 1 (one) tablet (40 mg total) by mouth daily . loratadine (CLARITIN) 10 mg tablet Take 1 (one) tablet (10 mg total) by mouth daily . metFORMIN (GLUCOPHAGE) 1000 MG tablet Take 1 (one) tablet (1,000 mg total) by mouth 2 (two) times a day . metoprolol succinate (TOPROL-XL) 50 MG 24 hr tablet Take 1 (one) tablet (50 mg total) by mouth daily . miscellaneous medical supply Misc 1 each by Miscellaneous route daily . naloxone (NARCAN) 4 mg/actuation Rafael Gonzalez Administer 1 spray into one nostril for known or suspected opioid overdose. If patient worsens or does not respond, may repeat in 2-3 minutes. . nortriptyline (PAMELOR) 25 MG capsule Take 1 (one) capsule (25 mg total) by mouth nightly . nystatin (MYCOSTATIN) powder Apply topically 2 (two) times a day . omeprazole (PRILOSEC) 40 MG capsule Take 1 (one) capsule (40 mg total) by mouth 2 (two) times a day . Omnipod 5 G6 Pods, Gen 5, Crtg Omnipod Insulin Refill Crtg ondansetron (ZOFRAN-ODT) 4 MG disintegrating tablet Dissolve 1 (one) tablet (4 mg total) on top of tongue every 8 (eight) hours as needed for nausea . pantoprazole (PROTONIX) 40 MG tablet Take 1 (one) tablet (40 mg total) by mouth daily . vitamin with Ca-Iron-FA 27-1 mg Tab Take 1 (one) tablet by mouth daily . timolol (TIMOPTIC) 0.5 % ophthalmic solution Administer 1 (one) drop into the left eye daily . traZODone (DESYREL) 50 MG tablet Take 1 (one) tablet (50 mg total) by mouth nightly as needed . oxyCODONE-acetaminophen (PERCOCET) 5-325 mg per tablet Take 1 (one) tablet by mouth every 6 (six) hours as needed for pain (Days supply per fill: 30) . oxyCODONE-acetaminophen (PERCOCET) 5-325 mg per tablet Take 1 (one) tablet by mouth every 4 (four) hours as needed for pain (Days supply per fill: 10) MAX 6/DAY FOR ACUTE POST-OP PAIN . pregabalin (LYRICA) 75 MG capsule Take 1 (one) capsule (75 mg total) by mouth 2 (two) times a day (Days supply per fill: 30) . QUEtiapine (SEROQUEL) 400 MG tablet Take 2 (two) tablets (800 mg total) by mouth nightly . tiZANidine (Zanaflex) 4 MG tablet Take 2 tabs p.o. nightly . Imaging XR Left Foot 04/26/24 IMPRESSION: FINDINGS/ 1. Prior amputation of the 1st distal phalanx is again noted. Soft tissue swelling is noted in the great toe, with possible skin wound/ulcer in the distal amputation site. No radiopaque foreign body or abnormal gas bubbles are seen. 2. No bony erosion or radiographic signs of osteomyelitis (though MRI is more sensitive for this diagnosis). 3. Moderate tibiotalar joint osteoarthrosis is noted, with joint space narrowing, small marginal osteophytes, and probable small subchondral cysts. 4. Lateral plate and screws internally fix the distal left fibula to near anatomic alignment, and this orthopedic hardware is incompletely imaged. 5. No acute fracture, malalignment, or other acute bony abnormality is seen. ASSESSMENT/PLAN Encounter Diagnoses Name Primary? Chronic pain syndrome DDD (degenerative disc disease), lumbar Lumbar radiculopathy Yes Encounter for monitoring opioid maintenance therapy Other chronic pain Myofascial pain syndrome Continue Percocet 5-325 one tablet every 4 hours as needed Continue Lyrica 75mg one capsule twice daily Continue tizanidine 4mg two tablets nightly as needed Follow up with Podiatry [facility] to monitor progress of healing from left great toe infection Complete urine drug screen Please call Refill Line or send MyChart Refill Request to Pain Management office 7 days before each fill date, every month. Follow up with Dr. Velez in 3 months I will continue to monitor for addiction and aberrant behavior, will use opiates with goal of weaning to lowest effective dose, will maximize doses of neuropathic agents and adjuvant therapies to manage pain, increase function, and maximize coping skills.. For any new medications prescribed today, patient was educated about indications for the medication, how to take the medication and potential side effects of the medications. We have discussed the findings on this office visit. The discussion included a complete verbal explanation of the examination results, diagnosis and current treatment plan. The treatment plan is discussed, covering the risk and benefits as well as possible side effects. The patient's questions were addressed. The patient verbalizes understanding and agreement with planned treatment. The patient is reminded that there is a risk of addiction. Patient has been counseled about the risk and benefit of opioid medications. The patient has been encourged to explore non-medication alternatives to manage pain. The patient is subject to being randomly assessed by oral/urine drug screening and/or pill count as needed to monitor patient compliance and adherance to the plan of care. OARRS REPORT WAS REVIEWED AND WAS CONSISTENT WITH PRESCRIBED MEDICATION REGIMEN NARCAN AVAILABILITY OPTIONS ARE DISCUSSED WITH ALL PATIENTS ON OPIOIDS Mihai Elizalde CNP Interventional Pain Management [facility] documented in this encounter [facility] 04-29-2024 Progress note Formatting of t his note might be different from the original. Spoke with Dr. Floyd Castillo, No dressing needed for patients foot. Leave open to air , Any drainage recommend neosporin and band-aid [facility] 04-29-2024 Miscellaneous Notes Spoke with Dr. Floyd Castillo, No dressing needed for patients foot. Leave open to air , Any drainage recommend neosporin and band-aid Problem: Actual or potential alteration in health Goal: Absence of healthcare acquired conditions Outcome: Partially Met Goal: Knowledge of Interdisciplinary Plan of Care Outcome: Partially Met Goal: Knowledge of Enviroment Outcome: Partially Met Problem: Pain Goal: Reduced pain sensation Outcome: Partially Met Goal: Control of acute pain to acceptable level Outcome: Partially Met Goal: Able to cope with pain Outcome: Partially Met Goal: Able to achieve maximum level of physical functioning Outcome: Partially Met Goal: Able to achieve maximum level of psychosocial functioning Outcome: Partially Met Problem: Pressure Injury, Risk of Goal: Absence of pressure injury Outcome: Partially Met Problem: Falls, Risk of Goal: Absence of falls Outcome: Partially Met Goal: Absence of physical injury Outcome: Partially Met Problem: Actual or potential alteration in health Goal: Absence of healthcare acquired conditions Outcome: Partially Met Goal: Knowledge of Interdisciplinary Plan of Care Outcome: Partially Met Goal: Knowledge of Enviroment Outcome: Partially Met Problem: Pain Goal: Reduced pain sensation Outcome: Partially Met Goal: Control of acute pain to acceptable level Outcome: Partially Met Goal: Able to cope with pain Outcome: Partially Met Goal: Able to achieve maximum level of physical functioning Outcome: Partially Met Goal: Able to achieve maximum level of psychosocial functioning Outcome: Partially Met Problem: Pressure Injury, Risk of Goal: Absence of pressure injury Outcome: Partially Met Problem: Actual or potential alteration in health Goal: Absence of healthcare acquired conditions Outcome: Partially Met Goal: Knowledge of Interdisciplinary Plan of Care Outcome: Partially Met Goal: Knowledge of Enviroment Outcome: Partially Met Problem: Pain Goal: Reduced pain sensation Outcome: Partially Met Goal: Control of acute pain to acceptable level Outcome: Partially Met Goal: Able to cope with pain Outcome: Partially Met Goal: Able to achieve maximum level of physical functioning Outcome: Partially Met Goal: Able to achieve maximum level of psychosocial functioning Outcome: Partially Met Problem: Pressure Injury, Risk of Goal: Absence of pressure injury Outcome: Partially Met documented in this encounter [facility] 04-29-2024 Plan of care note Problem: Actual or potential alteration in health Goal: Absence of healthcare acquired conditions Outcome: Partially Met Goal: Knowledge of Interdisciplinary Plan of Care Outcome: Partially Met Goal: Knowledge of Enviroment Outcome: Partially Met Problem: Pain Goal: Reduced pain sensation Outcome: Partially Met Goal: Control of acute pain to acceptable level Outcome: Partially Met Goal: Able to cope with pain Outcome: Partially Met Goal: Able to achieve maximum level of physical functioning Outcome: Partially Met Goal: Able to achieve maximum level of psychosocial functioning Outcome: Partially Met Problem: Pressure Injury, Risk of Goal: Absence of pressure injury Outcome: Partially Met Problem: Falls, Risk of Goal: Absence of falls Outcome: Partially Met Goal: Absence of physical injury Outcome: Partially Met [facility] 04-29-2024 Note [facility] 04-29-2024 History of Present illness Narrative [facility] ASSESSMENT: Diabetes T2 with neuropathy 2. Hyperglycemia 3. CKD Stage III 4. H/o Seizures 5. 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 This is a type II diabetic female with neuropathy history of chronic kidney disease and past chronic ulceration along the left hallux distal tuft. Patient is 27 days out from her left distal phalanx amputation following left distal phalanx osteomyelitis. Patient states that she is doing well today and denies any constitutional signs and symptoms of infection including fever, chills, nausea, vomiting, diarrhea. Patient states that she is not sick today. Patient states that she is having less pain from this left hallux IPJ amputation site during this admission and was sleeping comfortably prior to visit. Patient's amputation site shows good epithelization and granulation with no gapping or dehiscence. Patient's left foot cellulitis has vastly improved during this admission and has had no elevated white count for the past 3 days. Patient has no issues, problems, concerns for her left lower extremity at this time. No immediate podiatric interventions at this time. Will plan to discharge the patient today on oral antibiotics p.o. doxycycline for 2 weeks. - OR Plans: None - ABX: Plan to discharge today on oral antibiotics, p.o. doxycycline for 2 weeks. - DSG: Neosporin / polysporin Band-Aid dressing changes for the next 3 to 7 days. - WBS: Even weightbearing Answered questions and rediscussed plan at length with the patient and family if present. Discussed plan with other teams' providers. We discussed with the patient the pathology, etiology, pathogenesis, current condition management plan and disposition. This was discussed at various times during the day with representatives from nursing, pharmacy, case management, social work, and therapies as needed. We discussed with the patient he etiology of problems listed in the Assessment and Plan section, as well as risk factors, natural course, prognosis, treatment options with associated risks and benefits. Importance of compliance with the treatment plan was emphasized. I explained test results to date, as well as additional diagnostic recommendations. I explained discharge plans, including the required post-hospitalization care, treatment, and services. All questions were answered and ample time was provided. Avila Rajan PA-C, Foot and Ankle Surgery 04/29/2024 PAST MEDICAL HISTORY: Past Medical History: Diagnosis Date Anxiety Bipolar 1 disorder (HCC) Chronic back pain Chronic kidney disease, stage 3 unspecified (HCC) Coronary artery disease Depression Diabetes mellitus (HCC) Hypertension MRSA (methicillin resistant Staphylococcus aureus) Pacemaker Seizures (HCC) Stroke (HCC) MEDICATIONS: Current Facility-Administered Medications Medication Dose Route Frequency Provider Last Rate Last Admin albuterol (PROVENTIL) 2.5 mg /3 mL (0.083 %) nebulizer solution 2.5 mg 2.5 mg Nebulization Q6H PRN Harshad Rizzo MD atorvastatin (LIPITOR) tablet 40 mg 40 mg Oral Nightly Harshad Rizzo MD 40 mg at 04/28/242106 busPIRone (BUSPAR) tablet 30 mg 30 mg Oral BID Harshad Rizzo MD 30 mg at 04/29/24830 ceFAZolin (ANCEF) IVPB 2 g (premix) 2,000 mg Intravenous Q8H Harshad Rizzo MD 100 mL/hr at 04/29/24 0540 2,000 mg at 04/29/24 0540 enoxaparin (LOVENOX) syringe 40 mg 40 mg Subcutaneous BID Harshad Rizzo MD 40 mg at 04/28/242106 hydrALAZINE (APRESOLINE) injection 10 mg 10 mg Intravenous Q6H PRN Harshad Rizzo MD 10 mg at 04/27/24425 insulin glargine (LANTUS) injection 60 Units 60 Units Subcutaneous Nightly Lucina Preciado, [employer] SALESPERSON 60 Units at 04/28/242107 insulin lispro (AdmeLOG,HumaLOG) injection 0-15 Units 0-15 Units Subcutaneous at bedtime Harshad Rizzo MD 0 Units at 04/28/242120 insulin lispro (AdmeLOG,HumaLOG) injection 0-30 Units 0-30 Units Subcutaneous TID AC Harshad Rizzo MD 18 Units at 04/29/24 0832 lamoTRIgine (LAMICTAL) tablet 25 mg 25 mg Oral BID Harshad Rizzo MD 25 mg at 04/29/24 0831 levothyroxine (SYNTHROID, LEVOTHROID) tablet 75 mcg 75 mcg Oral Daily Harshad Rizzo MD 75 mcg at 04/29/24 0541 metoprolol tartrate (LOPRESSOR) tablet 25 mg 25 mg Oral BID Harshad Rizzo MD 25 mg at 04/29/24 0831 naloxone (NARCAN) injection 0.1 mg 0.1 mg Intravenous PRN Harshad Rizzo MD And naloxone (NARCAN) injection 0.4 mg 0.4 mg Intravenous PRN Harshad Rizzo MD nicotine (NICODERM CQ) 14 mg/24 hr 1 patch 1 patch Transdermal Daily Harshad Rizzo MD 1 patch at 04/27/24 0804 nortriptyline (PAMELOR) capsule 25 mg 25 mg Oral Nightly Harshad Rizzo MD 25 mg at 04/28/24 212 ondansetron (ZOFRAN) injection 4 mg 4 mg Intravenous Q6H PRHarshad Elise MD 4 mg at 04/27/24 0310 oxyCODONE-acetaminophen (PERCOCET) 5-325 mg per tablet 1 tablet 1 tablet Oral Q4H PRN Harshad Rizzo MD 1 tablet at 04/29/24 0831 pantoprazole (PROTONIX) EC tablet 40 mg 40 mg Oral QAM AC Harshad Rizzo MD 40 mg at 04/29/24 08 pregabalin (LYRICA) capsule 75 mg 75 mg Oral BID Harshad Rizzo MD 75 mg at 04/29/24 08 QUEtiapine (SEROQUEL) tablet 800 mg 800 mg Oral Nightly Harshad Rizzo MD 800 mg at 04/28/242106 senna (SENOKOT) tablet 17.2 mg 2 tablet Oral Nightly Harshad Rizzo MD 17.2 mg at 04/27/242020 timolol (TIMOPTIC) 0.5 % ophthalmic solution 1 drop 1 drop Left Eye Daily Harshad Rizzo MD tiZANidine (ZANAFLEX) tablet 4 mg 4 mg Oral Nightly Harshad Rizzo MD 4 mg at 04/28/242107 traZODone (DESYREL) tablet 50 mg 50 mg Oral Nightly PRN Harshad Rizzo MD 50 mg at 04/27/24 0241 Medications Prior to Admission Medication Sig Dispense Refill Last Dose/Taking albuterol (PROVENTIL) 2.5 mg /3 mL (0.083 %) nebulizer solution Take 3 mL (2.5 mg total) by nebulization every 6 (six) hours as needed for wheezing or shortness of breath . 75 mL 3 albuterol 90 mcg/actuation inhaler Inhale 1 (one) puff every 4 to 6 hours as needed for shortness of breath or wheezing . 18 g 3 alcohol swabs PadM Apply 1 (one) Swab. topically 5 (five) times a day Clean area before administering insulin. . 150 each 5 atorvastatin (LIPITOR) 40 MG tablet Take 1 (one) tablet (40 mg total) by mouth nightly . 90 tablet 0 blood sugar diagnostic (glucose blood) strips by Miscellaneous route 3 (three) times a day As a backup to CGM to test blood sugar. One Touch Verio . 100 strip 5 busPIRone (BUSPAR) 30 MG tablet Take 1 (one) tablet (30 mg total) by mouth 2 (two) times a day . chlorthalidone (HYGROTON) 25 MG tablet Take 1 (one) tablet (25 mg total) by mouth daily . 90 tablet 1 citalopram (CELEXA) 40 MG tablet Take 1 (one) tablet (40 mg total) by mouth daily . 90 tablet 1 Dexcom G6 Vibrator Operator Misc Use as directed for continuous glucose monitoring . 1 each 0 Dexcom G6 Sensor Simran Use as directed for continuous glucose monitoring change every 10 days . 3 each 11 Dexcom G6 Transmitter Simran Use as directed for continuous glucose monitoring change every 3 months . 1 each 3 ergocalciferol (Vitamin D2) 1,250 mcg (50,000 unit) capsule Take 1 (one) capsule (50,000 Units total) by mouth once a week . 12 capsule 1 glucagon (Gvoke HypoPen 2-Pack) 1 mg/0.2 mL AtIn Inject 0.2 mL (1 mg total) under the skin as needed . 2 mL 1 hydrOXYzine (VISTARIL) 25 MG capsule Take 1 (one) capsule (25 mg total) by mouth 2 (two) times a day as needed for itching or anxiety . 180 capsule 0 inhalational spacing device inhaler Use as instructed . 1 each 2 insulin lispro (AdmeLOG,HumaLOG) 100 unit/mL injection Inject up to 150 units once daily via pump . 50 mL 5 INSULIN PUMP CARTRIDGE SUBQ Inject under the skin Use as directed . lamoTRIgine (LAMICTAL) 25 MG tablet Take 1 (one) tablet (25 mg total) by mouth 2 (two) times a day . 60 tablet 2 lancets Misc 1 Lancet by Miscellaneous route 3 (three) times a day . 100 each 5 levETIRAcetam (KEPPRA) 1000 MG tablet Take 1 (one) tablet (1,000 mg total) by mouth 2 (two) times a day . 180 tablet 1 levothyroxine (SYNTHROID, LEVOTHROID) 75 MCG tablet Take 1 (one) tablet (75 mcg total) by mouth once daily . 90 tablet 0 lidocaine (LMX) 4 % cream Apply topically 3 (three) times a day . 90 g 3 lidocaine-prilocaine (EMLA) cream Apply topically as needed . 30 g 1 lisinopriL (PRINIVIL,ZESTRIL) 40 MG tablet Take 1 (one) tablet (40 mg total) by mouth daily . 90 tablet 1 loperamide (IMODIUM) 2 mg capsule Take 1 (one) capsule (2 mg total) by mouth as needed for diarrhea (Max dose 7 pills) . 20 capsule 1 loratadine (CLARITIN) 10 mg tablet Take 1 (one) tablet (10 mg total) by mouth daily . 90 tablet 1 metFORMIN (GLUCOPHAGE) 1000 MG tablet Take 1 (one) tablet (1,000 mg total) by mouth 2 (two) times a day . 60 tablet 5 metoprolol succinate (TOPROL-XL) 50 MG 24 hr tablet Take 1 (one) tablet (50 mg total) by mouth daily . 90 tablet 1 miscellaneous medical supply Mis 1 each by Miscellaneous route daily . 100 each 2 naloxone (NARCAN) 4 mg/actuation Rafael Gonzalez Administer 1 spray into one nostril for known or suspected opioid overdose. If patient worsens or does not respond, may repeat in 2-3 minutes. . 2 each 0 nortriptyline (PAMELOR) 25 MG capsule Take 1 (one) capsule (25 mg total) by mouth nightly . 90 capsule 1 nystatin (MYCOSTATIN) powder Apply topically 2 (two) times a day . 30 g 1 omeprazole (PRILOSEC) 40 MG capsule Take 1 (one) capsule (40 mg total) by mouth 2 (two) times a day . Omnipod 5 G6 Pods, Gen 5, Crtg Omnipod Insulin Refill Crtg ondansetron (ZOFRAN-ODT) 4 MG disintegrating tablet Dissolve 1 (one) tablet (4 mg total) on top of tongue every 8 (eight) hours as needed for nausea . 20 tablet 1 oxyCODONE-acetaminophen (PERCOCET) 5-325 mg per tablet Take 1 (one) tablet by mouth every 6 (six) hours as needed for pain (Days supply per fill: 30) . 15 tablet 0 pantoprazole (PROTONIX) 40 MG tablet Take 1 (one) tablet (40 mg total) by mouth daily . 90 tablet 1 pregabalin (LYRICA) 75 MG capsule Take 1 (one) capsule (75 mg total) by mouth 2 (two) times a day (Days supply per fill: 30) . 60 capsule 0 vitamin with Ca-Iron-FA 27-1 mg Tab Take 1 (one) tablet by mouth daily . QUEtiapine (SEROQUEL) 400 MG tablet Take 2 (two) tablets (800 mg total) by mouth nightly . 60 tablet 2 timolol (TIMOPTIC) 0.5 % ophthalmic solution Administer 1 (one) drop into the left eye daily . tiZANidine (Zanaflex) 4 MG tablet Take 2 tabs p.o. nightly . 60 tablet 0 traZODone (DESYREL) 50 MG tablet Take 1 (one) tablet (50 mg total) by mouth nightly as needed . 90 tablet 0 ROS: Negative except for HPI above Physical Exam: Patient Vitals for the past 24 hrs: BP Temp Temp src Pulse Resp SpO2 Weight 04/29/24 0831 -- -- -- -- 16 -- -- 04/29/24 0759 110/80 97.5 F (36.4 C) Oral 78 -- 98 % -- 04/29/24 0415 -- -- -- -- 18 -- -- 04/29/24 0325 102/67 98.4 F (36.9 C) Oral 77 16 96 % -- 04/29/24 0300 -- -- -- -- -- -- 128.3 kg (282 lb 13.6 oz) 04/28/243 -- -- -- -- 18 -- -- 04/28/241940 -- -- -- -- 18 -- -- 04/28/241918 (!) 148/81 97.5 F (36.4 C) Oral 98 16 96 % -- 04/28/24 1608 135/78 98.5 F (36.9 C) Oral 99 15 95 % -- 04/28/24 1532 -- -- -- -- 16 -- -- 04/28/24 1432 -- -- -- -- 16 -- -- 04/28/24 1132 -- -- -- -- 16 -- -- 04/28/24 1119 125/78 97.8 F (36.6 C) Oral 98 14 95 % -- 04/28/24 1031 -- -- -- -- 18 -- -- Pain Score: Temp (24hrs), Av.9 F (36.6 C), Min:97.5 F (36.4 C), Max:98.5 F (36.9 C) Pain Score: 06/03 General: A&O, NAD HEENT: NCAT, PERRL, no tracheal deviation Respiratory: Non-labored, non-distressed CV: RRR Abdomen: nontender, nondistended Neuro: CN II-XII grossly intact Lower Extremity Examination Vascular Exam: Pedal pulses palpable +1/4 for dorsalis pedis and posterior tibial arteries bilaterally. Capillary refill time > 3 seconds to digits 1-5 Right foot and 2 through 5 left foot. Neuro Exam: Sensation decreased to light touch to bilateral feet. No Tinel's or Vallieux's Signs. Deep tendon reflexes intact bilaterally. Proprioception intact bilaterally. Musc Exam: Muscle strength +5/5 for lower extremity extrinsic musculature bilaterally. Range of motion is within normal limits for the ankle joint, subtalar joint, midtarsal joint, metatarsal phalangeal joints without pain or crepitus bilaterally. Derm Exam: Labs: Results from last 7 days Lab Units 04/29/24 0436 04/28/24 0439 04/27/24 0323 GLUCOSE mg/dL 358* 408* 361* BUN mg/dL 30* 27* 26* CREATININE mg/dL 1.72* 1.68* 1.34* POTASSIUM mmol/L 4.5 4.5 4.3 SODIUM mmol/L 137 136 135 CHLORIDE mmol/L 104 102 99 CALCIUM mg/dL 8.5 8.7 8.7 PHOSPHORUS mg/dL 4.0 3.8 2.4* Lab Results Component Value Date WBC 6.78 04/29/2024 HGB 9.6 (L) 04/29/2024 HCT 29.3 (L) 04/29/2024 MCV 94.5 04/29/2024 PLT 289 04/29/2024 Lab Results Component Value Date CREATININE 1.72 (H) 04/29/2024 BUN 30 (H) 04/29/2024 NA 137 04/29/2024 K 4.5 04/29/2024 CL 104 04/29/2024 Lab Results Component Value Date PTT 34 06/03/2023 INR 1.0 06/03/2023 Lab Results Component Value Date HGBA1C 9.3 (H) 01/12/2024 Lab Results Component Value Date SEDRATE 58 (H) 04/26/2024 Lab Results Component Value Date CRP 91.8 (H) 04/26/2024 * Cannot find OR log * Imaging: XR Foot Left 3+ Views (Standard) Result Date: 04/26/2024 EXAMINATION: XR FOOT LEFT 3+ VIEWS (STANDARD) 04/26/2024 8:26 pm HISTORY: ORDERING SYSTEM PROVIDED HISTORY: post op eval, TECHNOLOGIST PROVIDED HISTORY: Illness/Other Reason for exam: Patient arrives with EMS ([facility]). She ambulated off of EMS cot with assistance to bed. 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 Patient states that she has been on antibiotics since surgery but does not know the name of what she has been taking. She states her dressing was changed 2 days ago. She reports redness, pain and clear drainage. Cancer History: u Surgery, RadiationHistory: pacemaker Encounter Type: Initial Additional signs and symptoms: Patient arrives with EMS ([facility]). She ambulated off of EMS cot with assistance to bed. 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 Patient states that she has been on antibiotics since surgery but does not know the name of what she has been taking. She states her dressing was changed 2 days ago. She reports redness, pain and clear drainage. ORDERING SYSTEM PROVIDED DIAGNOSIS CODES: COMPARISON: 04/01/2024. FINDINGS/ 1. Prior amputation of the 1st distal phalanx is again noted. Soft tissue swelling is noted in the great toe, with possible skin wound/ulcer in the distal amputation site. No radiopaque foreign body or abnormal gas bubbles are seen. 2. No bony erosion or radiographic signs of osteomyelitis (though MRI is more sensitive for this diagnosis). 3. Moderate tibiotalar joint osteoarthrosis is noted, with joint space narrowing, small marginal osteophytes, and probable small subchondral cysts. 4. Lateral plate and screws internally fix the distal left fibula to near anatomic alignment, and this orthopedic hardware is incompletely imaged. 5. No acute fracture, malalignment, or other acute bony abnormality is seen. Workstation ID: [id number] The total time spent for this visit was greater than 35 minutes. Greater than 50% of the time was spent in counseling and coordination of care and direct patient management. Cosigned by Shameka Castillo DPM at 04/29/2024 4:35 PM EST Associated attestation - Shameka Castillo DPM - 04/29/2024 4:35 PM EST I agree with assessment and plan. [facility] [place]GRESS NOTE Assessment and Plan Addie Jean Baptiste is a 48 y.o. female patient of Stephany Pelayo PA-C with history of T2DM, HTN, bipolar disorder, and chronic back pain presented to [facility] on 01/12/2024 with left toe wound. Postop toe infection Left hallux osteomyelitis s/p amputation Diabetic foot infection Was recently discharged after amputation on 04/01 Missed postop follow-up with podiatry Sutures in place with swelling around the toe remnant; sutures may need to be removed to allow for drainage of wound; will defer to podiatry in the morning Afebrile; WBC 10.46 CRP 92 sed rate 58 Prior wound culture 03/25 with MSSA Xray L foot: Soft tissue swelling Zosyn given in ED; will start on cefazolin based on recent surgical cultures Finished course of clindamycin and doxycycline 2 weeks ago Podiatry following; dressing change orders. Pain control Acute kidney injury Likely due to poorly controlled hypertension Creatinine 1.6 > 1.34>1.68 (baseline ~1.1-1.2) Continue IV fluids for 24 hours Recent renal ultrasound normal Counseled about tighter blood pressure control upon admission T2DM, with current long-term use of insulin Diabetic peripheral neuropathy Recent A1c 9.9% Home insulin regimen: insulin pump not in use during admission Continue with lantus increased to 60 Units and SSI Counseled about tighter glycemic control upon admission Blood glucose last 24 hours 191-408 mg/dL. Hypertension BP uncontrolled. Continue metoprolol and SHAJI inhibitor Seizure disorder Continue home keppra Obesity Body mass index is 45.73 kg/m . Discussed dietary and lifestyle modifications Resolved acute medical issues Discharge Planning Medically Stable for Discharge Date: 04/29 Patient requires continued hospitalization due to: one more day on IV antibiotics. Transition to orals tomorrow and discharge Discharge Location: home Quality Measures DVT Prophylaxis: lovenox Chow Catheter: absent Code Status Full code Primary Contact Information No family at bedside during time of exam Subjective Patient denies any acute events overnight. She denies drinking sugary beverages. Aware of high glucoses. Objective BP 93/65 Pulse 87 Temp 98.5 F (36.9 C) (Oral) Resp 14 Ht 5' 2 Wt 127.5 kg (281 lb 1.4 oz) SpO2 95% BMI 51.41 kg/m Physical Examination General Appearance: alert; acutely ill appearing; in no acute distress HEENT: Head- normocephalic; Eyes- EOMI, sclera anicteric; Throat- mucous membranes moist Cardiovascular: regular rate and rhythm; normal S1, S2; no murmurs, rubs, clicks or gallops; peripheral edema absent Respiratory: lungs clear to auscultation; without wheezes, rales or rhonchi; on room air Abdomen: soft, non-tender, non-distended Neurological: oriented x 3; normal speech; no focal findings or movement disorder noted Musculoskeletal: Left toe and foot wrapped with betadine, gauze and shaji wraps. Skin: normal coloration Psych: normal mood and affect [facility] [place] PROGRESS NOTE Assessment and Plan Addie Jean Baptiste is a 48 y.o. female patient of Stephany Pelayo PA-C with history of T2DM, HTN, bipolar disorder, and chronic back pain presented to [facility] on 01/12/2024 with left toe wound. Postop toe infection Left hallux osteomyelitis s/p amputation Diabetic foot infection Was recently discharged after amputation on 04/01 Missed postop follow-up with podiatry Sutures in place with swelling around the toe remnant; sutures may need to be removed to allow for drainage of wound; will defer to podiatry in the morning Afebrile; WBC 10.46 CRP 92 sed rate 58 Prior wound culture 03/25 with MSSA Xray L foot: Soft tissue swelling Zosyn given in ED; will start on cefazolin based on recent surgical cultures Finished course of clindamycin and doxycycline 2 weeks ago Podiatry consulted from ED Pain control Acute kidney injury Likely due to poorly controlled hypertension Creatinine 1.6 > 1.34 (baseline ~1.1-1.2) Continue IV fluids for 24 hours Recent renal ultrasound normal Counseled about tighter blood pressure control T2DM, with current long-term use of insulin Diabetic peripheral neuropathy Recent A1c 9.9% Home insulin regimen: insulin pump not in use during admission Continue with lantus increased to 45 Units and SSI Counseled about tighter glycemic control upon admission Blood glucose current in the 300's. Hypertension BP uncontrolled. Continue metoprolol and SHAJI inhibitor Seizure disorder Continue home keppra Obesity Body mass index is 45.73 kg/m . Discussed dietary and lifestyle modifications Resolved acute medical issues Discharge Planning Medically Stable for Discharge Date: Patient requires continued hospitalization due to: awaiting clinical improvement Discharge Location: home Quality Measures DVT Prophylaxis: lovenox Chow Catheter: absent Code Status Full code Primary Contact Information No family at bedside during time of exam. Subjective Patient states she has peripheral neuropathy but has increased pain in the surgical toe. She reports that she was to have the sutures removed last Thursday but missed the appointment. She last changed the dressing on Thursday, 4 days ago. Objective BP 104/65 Pulse 92 Temp 97.8 F (36.6 C) (Oral) Resp 16 Ht 5' 2 Wt 128.3 kg (282 lb 13.6 oz) SpO2 96% BMI 51.73 kg/m Physical Examination General Appearance: alert; acutely ill appearing; in mild acute distress HEENT: Head- normocephalic; Eyes- EOMI, sclera anicteric; Throat- mucous membranes moist Cardiovascular: regular rate and rhythm; normal S1, S2; no murmurs, rubs, clicks or gallops; peripheral edema present in bilateral ankles Respiratory: lungs clear to auscultation; without wheezes, rales or rhonchi; on room air Abdomen: soft, non-tender, non-distended Neurological: oriented x 3; normal speech; no focal findings or movement disorder noted Musculoskeletal: left big toe with 7 sutures at the end, swelling and redness that extends to the distal third of the dorsal surface without streaking Skin: normal coloration Psych: normal mood and affect documented in this encounter [facility] 04-29-2024 Hospital course Narrative Images from the original note were not included. [facility] [place] DISCHARGE SUMMARY -- [facility] Addie Jean Baptiste Admitted: 04/26/2024 Discharge Date: 04/29/24 PCP Handoff Recommended Outpatient Testing Follow up with podiatry Results Pending At Discharge NONE Clinical Summary Addie Jean Baptiste is a 48 y.o. female patient of Stephany Pelayo PA-C with history of T2DM, HTN, bipolar disorder, and chronic back pain presented to [facility] on 01/12/2024 with left toe wound. Postop toe infection Left hallux osteomyelitis s/p amputation Diabetic foot infection Was recently discharged after amputation on 04/01 Missed postop follow-up with podiatry Sutures in place with swelling around the toe remnant; sutures may need to be removed to allow for drainage of wound; will defer to podiatry in the morning Afebrile; WBC 10.46 CRP 92 sed rate 58 Prior wound culture 03/25 with MSSA Xray L foot: Soft tissue swelling Finished course of clindamycin and doxycycline 2 weeks ago Zosyn given in ED; changed to cefazolin based on recent surgical cultures for 3 days in hospital. Transitioned to doxycycline upon discharge for 2 weeks per podiatry Podiatry following; dressing change orders. Acute kidney injury Likely due to poorly controlled hypertension Creatinine 1.6 > 1.34>1.68 (baseline ~1.1-1.2) Continue IV fluids for 24 hours Recent renal ultrasound normal Counseled about tighter blood pressure control upon admission T2DM, with current long-term use of insulin Diabetic peripheral neuropathy Recent A1c 9.9% Home insulin regimen: insulin pump not in use during admission Continue with lantus increased to 60 Units and SSI Counseled about tighter glycemic control upon admission Blood glucose last 24 hours 191-408 mg/dL. Hypertension BP uncontrolled. Continue metoprolol and SHAJI inhibitor Seizure disorder Continue home keppra Obesity Body mass index is 45.73 kg/m . Discussed dietary and lifestyle modifications Discharge Medications Discharge Medications Unreviewed Medications Details * albuterol 90 mcg/actuation inhaler Inhale 1 (one) puff every 4 to 6 hours as needed for shortness of breath or wheezing . Quantity: 18 g * albuterol 2.5 mg /3 mL (0.083 %) nebulizer solution Commonly known as: PROVENTIL Take 3 mL (2.5 mg total) by nebulization every 6 (six) hours as needed for wheezing or shortness of breath . Quantity: 75 mL alcohol swabs Padm Apply 1 (one) Swab. topically 5 (five) times a day Clean area before administering insulin. . Quantity: 150 each atorvastatin 40 MG tablet Commonly known as: LIPITOR Take 1 (one) tablet (40 mg total) by mouth nightly . Quantity: 90 tablet busPIRone 30 MG tablet Commonly known as: BUSPAR Take 1 (one) tablet (30 mg total) by mouth 2 (two) times a day . chlorthalidone 25 MG tablet Commonly known as: HYGROTON Take 1 (one) tablet (25 mg total) by mouth daily . Quantity: 90 tablet citalopram 40 MG tablet Commonly known as: CELEXA Take 1 (one) tablet (40 mg total) by mouth daily . Quantity: 90 tablet Dexcom G6 Vibrator Operator Misc Generic drug: blood-glucose meter,continuous Use as directed for continuous glucose monitoring . Quantity: 1 each Dexcom G6 Sensor Simran Generic drug: blood-glucose sensor Use as directed for continuous glucose monitoring change every 10 days . Quantity: 3 each Dexcom G6 Transmitter Simran Generic drug: blood-glucose transmitter Use as directed for continuous glucose monitoring change every 3 months . Quantity: 1 each ergocalciferol 1,250 mcg (50,000 unit) capsule Commonly known as: Vitamin D2 Take 1 (one) capsule (50,000 Units total) by mouth once a week . Quantity: 12 capsule glucose blood test strip Generic drug: blood sugar diagnostic by Miscellaneous route 3 (three) times a day As a backup to CGM to test blood sugar. One Touch Verio . Quantity: 100 strip Gvoke HypoPen 2-Pack 1 mg/0.2 mL Atin Generic drug: glucagon Inject 0.2 mL (1 mg total) under the skin as needed . Quantity: 2 mL hydrOXYzine 25 MG capsule Commonly known as: VISTARIL Take 1 (one) capsule (25 mg total) by mouth 2 (two) times a day as needed for itching or anxiety . Quantity: 180 capsule inhalational spacing device inhaler Use as instructed . Quantity: 1 each insulin lispro 100 unit/mL injection Commonly known as: AdmeLOG,HumaLOG Inject up to 150 units once daily via pump . Quantity: 50 mL INSULIN PUMP CARTRIDGE SUBQ Inject under the skin Use as directed . lamoTRIgine 25 MG tablet Commonly known as: LAMICTAL Take 1 (one) tablet (25 mg total) by mouth 2 (two) times a day . Quantity: 60 tablet lancets Mis 1 Lancet by Miscellaneous route 3 (three) times a day . Quantity: 100 each levETIRAcetam 1000 MG tablet Commonly known as: KEPPRA Take 1 (one) tablet (1,000 mg total) by mouth 2 (two) times a day . Quantity: 180 tablet levothyroxine 75 MCG tablet Commonly known as: SYNTHROID, LEVOTHROID Take 1 (one) tablet (75 mcg total) by mouth once daily . Quantity: 90 tablet lidocaine 4 % cream Commonly known as: LMX Apply topically 3 (three) times a day . Quantity: 90 g lidocaine-prilocaine cream Commonly known as: EMLA Apply topically as needed . Quantity: 30 g lisinopriL 40 MG tablet Commonly known as: PRINIVIL,ZESTRIL Take 1 (one) tablet (40 mg total) by mouth daily . Quantity: 90 tablet loperamide 2 mg capsule Commonly known as: IMODIUM Take 1 (one) capsule (2 mg total) by mouth as needed for diarrhea (Max dose 7 pills) . Quantity: 20 capsule loratadine 10 mg tablet Commonly known as: CLARITIN Take 1 (one) tablet (10 mg total) by mouth daily . Quantity: 90 tablet metFORMIN 1000 MG tablet Commonly known as: GLUCOPHAGE Take 1 (one) tablet (1,000 mg total) by mouth 2 (two) times a day . Quantity: 60 tablet metoprolol succinate 50 MG 24 hr tablet Commonly known as: TOPROL-XL Take 1 (one) tablet (50 mg total) by mouth daily . Quantity: 90 tablet miscellaneous medical supply Misc 1 each by Miscellaneous route daily . Quantity: 100 each naloxone 4 mg/actuation Rafael Gonzalez Commonly known as: NARCAN Administer 1 spray into one nostril for known or suspected opioid overdose. If patient worsens or does not respond, may repeat in 2-3 minutes. . Quantity: 2 each nortriptyline 25 MG capsule Commonly known as: PAMELOR Take 1 (one) capsule (25 mg total) by mouth nightly . Quantity: 90 capsule nystatin powder Commonly known as: MYCOSTATIN Apply topically 2 (two) times a day . Quantity: 30 g omeprazole 40 MG capsule Commonly known as: PRILOSEC Take 1 (one) capsule (40 mg total) by mouth 2 (two) times a day . Omnipod 5 G6 Pods (Gen 5) Crtg Generic drug: insulin pump cart,automated,BT Omnipod Classic Pods (Gen 3) Crtg Generic drug: insulin pump cart,cont inf,RF ondansetron 4 MG disintegrating tablet Commonly known as: ZOFRAN-ODT Dissolve 1 (one) tablet (4 mg total) on top of tongue every 8 (eight) hours as needed for nausea . Quantity: 20 tablet * oxyCODONE-acetaminophen 5-325 mg per tablet Commonly known as: PERCOCET Ask about: Which instructions should I use? Take 1 (one) tablet by mouth every 6 (six) hours as needed for pain (Days supply per fill: 30) . Quantity: 15 tablet * oxyCODONE-acetaminophen 5-325 mg per tablet Commonly known as: PERCOCET Ask about: Which instructions should I use? Take 1 (one) tablet by mouth every 4 (four) hours as needed for pain (Days supply per fill: 10) MAX 6/DAY FOR ACUTE POST-OP PAIN . Quantity: 84 tablet pantoprazole 40 MG tablet Commonly known as: PROTONIX Take 1 (one) tablet (40 mg total) by mouth daily . Quantity: 90 tablet pregabalin 75 MG capsule Commonly known as: LYRICA Take 1 (one) capsule (75 mg total) by mouth 2 (two) times a day (Days supply per fill: 30) . Quantity: 60 capsule vitamin with Ca-Iron-FA 27-1 mg Tab Take 1 (one) tablet by mouth daily . QUEtiapine 400 MG tablet Commonly known as: SEROQUEL Take 2 (two) tablets (800 mg total) by mouth nightly . Quantity: 60 tablet timolol 0.5 % ophthalmic solution Commonly known as: TIMOPTIC Administer 1 (one) drop into the left eye daily . tiZANidine 4 MG tablet Commonly known as: Zanaflex Take 2 tabs p.o. nightly . Quantity: 60 tablet traZODone 50 MG tablet Commonly known as: DESYREL Take 1 (one) tablet (50 mg total) by mouth nightly as needed . Quantity: 90 tablet * There are duplicate medications prescribed to the patient Physician(s) Follow Up: No follow-up provider specified. Condition at Discharge: Stable Disposition: Home I reviewed discharge recommendations with the patient in person. Patient instructions, including activity, were given to the patient/family at discharge. On day of discharge I saw Addie Organ and spent: > 30 minutes on discharge. Completed by: Lucina Preciado CNP on 04/29/24, 8:26 AM documented in this encounter [facility] 04-28-2024 Telephone encounter Note Pt in hospital, infection in toe amputation site. Due for refill on 04/22/24. [facility] 04-28-2024 Miscellaneous Notes Pt in hospital, infection in toe amputation site. Due for refill on 04/22/24. documented in this encounter [facility] 04-28-2024 Stephan méndez 04-28-2024 Plan of care note Problem: Actual or potential alteration in health Goal: Absence of healthcare acquired conditions Outcome: Partially Met Goal: Knowledge of Interdisciplinary Plan of Care Outcome: Partially Met Goal: Knowledge of Enviroment Outcome: Partially Met Problem: Pain Goal: Reduced pain sensation Outcome: Partially Met Goal: Control of acute pain to acceptable level Outcome: Partially Met Goal: Able to cope with pain Outcome: Partially Met Goal: Able to achieve maximum level of physical functioning Outcome: Partially Met Goal: Able to achieve maximum level of psychosocial functioning Outcome: Partially Met Problem: Pressure Injury, Risk of Goal: Absence of pressure injury Outcome: Partially Met [facility] 04-28-2024 Note [facility] 04-27-2024 Consult note Associated Order (s): IP CONSULT TO PODIATRY Images from the original note were not included. [facility] H&P/CONSULT ASSESSMENT: Diabetes T2 with neuropathy 2. Hyperglycemia 3. CKD Stage III 4. H/o Seizures 5. 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 This is a type II diabetic female with neuropathy history of chronic kidney disease and past chronic ulceration along the left hallux distal tuft. Patient is 26 days out from her left distal phalanx amputation following left distal phalanx osteomyelitis. Patient states that she has pain with activities of daily living and ambulation however on exam patient has no pain to palpation of this amputation site. Patient has surrounding erythema and edema but no malodor. Drainage noted. Sutures are intact with no signs of wound dehiscence or gapping noted along the surgical incision. Sutures removed today as noted below. Will plan to have patient on IV antibiotics during this admission following amputation site cellulitis. Will follow while in house. Left hallux amputation site: - Patient is 26 days from her surgical date. Sutures are intact with no signs of gapping or dehiscence. There is surrounding erythema and edema but no malodor. Drainage noted to the surgical incision. Stitches were removed today by cleansing the skin with alcohol and gently removing the stitches. Betadine dry sterile dressing pattern changer the amputation site. -- OR Plans: None - ABX: cefazolin based on recent surgical cultures, per primary - DSG: Betadine dry sterile dressing pattern changer the amputation site. - WBS: Heel weightbearing left foot Answered questions and rediscussed plan at length with the patient and family if present. Discussed plan with other teams' providers. We discussed with the patient the pathology, etiology, pathogenesis, current condition management plan and disposition. This was discussed at various times during the day with representatives from nursing, pharmacy, case management, social work, and therapies as needed. We discussed with the patient he etiology of problems listed in the Assessment and Plan section, as well as risk factors, natural course, prognosis, treatment options with associated risks and benefits. Importance of compliance with the treatment plan was emphasized. I explained test results to date, as well as additional diagnostic recommendations. I explained discharge plans, including the required post-hospitalization care, treatment, and services. All questions were answered and ample time was provided. Thank you for the consult! Avila Rajan PA-C, Foot and Ankle Surgery 04/27/2024 HISTORY: Addie Jean Baptiste is a 49 y.o. YEAR OLD female with PMH listed below who WAS ADMITTED TO [facility] [place] ON 04/26/2024 WITH postop toe infection Chief Complaint Patient presents with Post-op Problem Toe Pain I AM BEING ASKED TO SEE THIS PATIENT AT THE REQUEST OF DR. Harshad Rizzo MD . The patient presents with pain along her left hallux amputation site. Patient denies any constitutional signs and symptoms of infection including fever, chills, nausea, vomiting, diarrhea. Patient denies any worrisome signs of worsening local infection including nonblanchable proximally spreading erythema, edema, malodor, purulent drainage from this left hallux amputation site. Patient states that she has occasional serous drainage from this but does not have any purulent drainage. Patient states that she had finished her prescribed antibiotics on discharge. Patient states that she occasionally performs Betadine dry sterile dressing changes which is good for her as she, picks at this amputation site. Patient was advised to have a follow-up appointment with our office 2 weeks after her hospital admission. Patient states that she had called the office once and did not get a response back and then failed to make this follow-up appointment. Patient has no pain to palpation of her amputation site today on exam. PAST MEDICAL HISTORY: Past Medical History: Diagnosis Date Anxiety Bipolar 1 disorder (HCC) Chronic back pain Chronic kidney disease, stage 3 unspecified (HCC) Coronary artery disease Depression Diabetes mellitus (HCC) Hypertension MRSA (methicillin resistant Staphylococcus aureus) Pacemaker Seizures (HCC) Stroke (HCC) PAST SURGICAL HISTORY: Past Surgical History: Procedure Laterality Date CHOLECYSTECTOMY FOOT SURGERY HYSTERECTOMY ORTHOPEDIC SURGERY left foot surgery PACEMAKER INSERTION NM AMPUTATION TOE METATARSOPHALANGEAL JOINT Left 04/01/2024 Procedure: AMPUTATION LEFT HALLUX; Surgeon: Shameka Castillo DPM; Location: [facility] [place] Main OR; Service: Podiatry FAMILY MEDICAL HISTORY: Family History Problem Relation Age of Onset Seizures Mother Diabetes Father Hypertension Father Diabetes type II Father SOCIAL HISTORY: Social History Tobacco Use Smoking status: Former Current packs/day: 1.00 Average packs/day: 1 pack/day for 18.4 years (18.4 ttl pk-yrs) Types: Cigarettes Start date: 09/30/2014 Passive exposure: Current Smokeless tobacco: Never Tobacco comments: Vaping 6 mg nicotine Vaping Use Vaping status: Every Day Substances: Nicotine, Flavoring Devices: Pre-filled or refillable cartridge Substance Use Topics Alcohol use: No Alcohol/week: 0.0 standard drinks of alcohol Drug use: Yes Types: Marijuana Comment: smoking as needed, last use thursday night DRUG/FOOD ALLERGIES: Iodides, Ketorolac, Tramadol, Codeine, Propoxyphene n-acetaminophen, Adhesive, Compazine [prochlorperazine], Ct: iodinated contrast- oral and iv dye, Fentanyl, Ibuprofen, Latex, Linezolid, Lorazepam, Nsaids (non-steroidal anti-inflammatory drug), Vancomycin, and Propoxyphene MEDICATIONS: Current Facility-Administered Medications Medication Dose Route Frequency Provider Last Rate Last Admin albuterol (PROVENTIL) 2.5 mg /3 mL (0.083 %) nebulizer solution 2.5 mg 2.5 mg Nebulization Q6H PRN Harshad Rizzo MD atorvastatin (LIPITOR) tablet 40 mg 40 mg Oral Nightly Harshad Rizzo MD 40 mg at 04/27/24 0242 busPIRone (BUSPAR) tablet 30 mg 30 mg Oral BID Harshad Rizzo MD 30 mg at 04/27/24 0803 ceFAZolin (ANCEF) IVPB 2 g (premix) 2,000 mg Intravenous Q8H Harshad Rizzo MD Stopped at 04/27/24 1453 enoxaparin (LOVENOX) syringe 40 mg 40 mg Subcutaneous BID Harshad Rizzo MD 40 mg at 04/27/24 0804 hydrALAZINE (APRESOLINE) injection 10 mg 10 mg Intravenous Q6H PRN Harshad Rizzo MD 10 mg at 04/27/24 0426 insulin glargine (LANTUS) injection 45 Units 45 Units Subcutaneous Nightly Lucina Preciado, [employer] SALESPERSON insulin lispro (AdmeLOG,HumaLOG) injection 0-15 Units 0-15 Units Subcutaneous at bedtime Harshad Rizzo MD 9 Units at 04/27/24 0242 insulin lispro (AdmeLOG,HumaLOG) injection 0-30 Units 0-30 Units Subcutaneous TID AC Harshad Rizzo MD 18 Units at 04/27/24 1137 lamoTRIgine (LAMICTAL) tablet 25 mg 25 mg Oral BID Harshad Rizzo MD 25 mg at 04/27/24 0804 levothyroxine (SYNTHROID, LEVOTHROID) tablet 75 mcg 75 mcg Oral Daily Harshad Rizzo MD 75 mcg at 04/27/24 0544 metoprolol tartrate (LOPRESSOR) tablet 25 mg 25 mg Oral BID Harshad Rizzo MD 25 mg at 04/27/24 0804 naloxone (NARCAN) injection 0.1 mg 0.1 mg Intravenous PRN Harshad Rizzo MD And naloxone (NARCAN) injection 0.4 mg 0.4 mg Intravenous PRN Harshad Rizzo MD nicotine (NICODERM CQ) 14 mg/24 hr 1 patch 1 patch Transdermal Daily Harshad Rizzo MD 1 patch at 04/27/24 0804 nortriptyline (PAMELOR) capsule 25 mg 25 mg Oral Nightly Harshad Rizzo MD 25 mg at 04/27/24 0241 ondansetron (ZOFRAN) injection 4 mg 4 mg Intravenous Q6H PRN Harshad Rizzo MD 4 mg at 04/27/24 0310 oxyCODONE-acetaminophen (PERCOCET) 5-325 mg per tablet 1 tablet 1 tablet Oral Q4H PRN Harshad Rizzo MD 1 tablet at 04/27/24 0926 pantoprazole (PROTONIX) EC tablet 40 mg 40 mg Oral QAM AC Harshad Rizzo MD 40 mg at 04/27/24 0804 pregabalin (LYRICA) capsule 75 mg 75 mg Oral BID Harshad Rizzo MD 75 mg at 04/27/24 0803 QUEtiapine (SEROQUEL) tablet 800 mg 800 mg Oral Nightly Harshad Rizzo MD 800 mg at 04/27/24 0241 senna (SENOKOT) tablet 17.2 mg 2 tablet Oral Nightly Harshad Rizzo MD 17.2 mg at 04/27/24 0241 timolol (TIMOPTIC) 0.5 % ophthalmic solution 1 drop 1 drop Left Eye Daily Harshad Rizzo MD tiZANidine (ZANAFLEX) tablet 4 mg 4 mg Oral Nightly Harshad Rizzo MD 4 mg at 04/27/24 0241 traZODone (DESYREL) tablet 50 mg 50 mg Oral Nightly PRN Harshad Rizzo MD 50 mg at 04/27/24 0241 Medications Prior to Admission Medication Sig Dispense Refill Last Dose/Taking albuterol (PROVENTIL) 2.5 mg /3 mL (0.083 %) nebulizer solution Take 3 mL (2.5 mg total) by nebulization every 6 (six) hours as needed for wheezing or shortness of breath . 75 mL 3 albuterol 90 mcg/actuation inhaler Inhale 1 (one) puff every 4 to 6 hours as needed for shortness of breath or wheezing . 18 g 3 alcohol swabs PadM Apply 1 (one) Swab. topically 5 (five) times a day Clean area before administering insulin. . 150 each 5 atorvastatin (LIPITOR) 40 MG tablet Take 1 (one) tablet (40 mg total) by mouth nightly . 90 tablet 0 blood sugar diagnostic (glucose blood) strips by Miscellaneous route 3 (three) times a day As a backup to CGM to test blood sugar. One Touch Verio . 100 strip 5 busPIRone (BUSPAR) 30 MG tablet Take 1 (one) tablet (30 mg total) by mouth 2 (two) times a day . chlorthalidone (HYGROTON) 25 MG tablet Take 1 (one) tablet (25 mg total) by mouth daily . 90 tablet 1 citalopram (CELEXA) 40 MG tablet Take 1 (one) tablet (40 mg total) by mouth daily . 90 tablet 1 Dexcom G6 Vibrator Operator Misc Use as directed for continuous glucose monitoring . 1 each 0 Dexcom G6 Sensor Simran Use as directed for continuous glucose monitoring change every 10 days . 3 each 11 Dexcom G6 Transmitter Simran Use as directed for continuous glucose monitoring change every 3 months . 1 each 3 ergocalciferol (Vitamin D2) 1,250 mcg (50,000 unit) capsule Take 1 (one) capsule (50,000 Units total) by mouth once a week . 12 capsule 1 glucagon (Gvoke HypoPen 2-Pack) 1 mg/0.2 mL AtIn Inject 0.2 mL (1 mg total) under the skin as needed . 2 mL 1 hydrOXYzine (VISTARIL) 25 MG capsule Take 1 (one) capsule (25 mg total) by mouth 2 (two) times a day as needed for itching or anxiety . 180 capsule 0 inhalational spacing device inhaler Use as instructed . 1 each 2 insulin lispro (AdmeLOG,HumaLOG) 100 unit/mL injection Inject up to 150 units once daily via pump . 50 mL 5 INSULIN PUMP CARTRIDGE SUBQ Inject under the skin Use as directed . lamoTRIgine (LAMICTAL) 25 MG tablet Take 1 (one) tablet (25 mg total) by mouth 2 (two) times a day . 60 tablet 2 lancets Misc 1 Lancet by Miscellaneous route 3 (three) times a day . 100 each 5 levETIRAcetam (KEPPRA) 1000 MG tablet Take 1 (one) tablet (1,000 mg total) by mouth 2 (two) times a day . 180 tablet 1 levothyroxine (SYNTHROID, LEVOTHROID) 75 MCG tablet Take 1 (one) tablet (75 mcg total) by mouth once daily . 90 tablet 0 lidocaine (LMX) 4 % cream Apply topically 3 (three) times a day . 90 g 3 lidocaine-prilocaine (EMLA) cream Apply topically as needed . 30 g 1 lisinopriL (PRINIVIL,ZESTRIL) 40 MG tablet Take 1 (one) tablet (40 mg total) by mouth daily . 90 tablet 1 loperamide (IMODIUM) 2 mg capsule Take 1 (one) capsule (2 mg total) by mouth as needed for diarrhea (Max dose 7 pills) . 20 capsule 1 loratadine (CLARITIN) 10 mg tablet Take 1 (one) tablet (10 mg total) by mouth daily . 90 tablet 1 metFORMIN (GLUCOPHAGE) 1000 MG tablet Take 1 (one) tablet (1,000 mg total) by mouth 2 (two) times a day . 60 tablet 5 metoprolol succinate (TOPROL-XL) 50 MG 24 hr tablet Take 1 (one) tablet (50 mg total) by mouth daily . 90 tablet 1 miscellaneous medical supply Misc 1 each by Miscellaneous route daily . 100 each 2 naloxone (NARCAN) 4 mg/actuation Rafael Gonzalez Administer 1 spray into one nostril for known or suspected opioid overdose. If patient worsens or does not respond, may repeat in 2-3 minutes. . 2 each 0 nortriptyline (PAMELOR) 25 MG capsule Take 1 (one) capsule (25 mg total) by mouth nightly . 90 capsule 1 nystatin (MYCOSTATIN) powder Apply topically 2 (two) times a day . 30 g 1 omeprazole (PRILOSEC) 40 MG capsule Take 1 (one) capsule (40 mg total) by mouth 2 (two) times a day . Omnipod 5 G6 Pods, Gen 5, Crtg Omnipod Insulin Refill Crtg ondansetron (ZOFRAN-ODT) 4 MG disintegrating tablet Dissolve 1 (one) tablet (4 mg total) on top of tongue every 8 (eight) hours as needed for nausea . 20 tablet 1 oxyCODONE-acetaminophen (PERCOCET) 5-325 mg per tablet Take 1 (one) tablet by mouth every 6 (six) hours as needed for pain (Days supply per fill: 30) . 15 tablet 0 oxyCODONE-acetaminophen (PERCOCET) 5-325 mg per tablet Take 1 (one) tablet by mouth every 4 (four) hours as needed for pain (Days supply per fill: 10) MAX 6/DAY FOR ACUTE POST-OP PAIN . 45 tablet 0 pantoprazole (PROTONIX) 40 MG tablet Take 1 (one) tablet (40 mg total) by mouth daily . 90 tablet 1 pregabalin (LYRICA) 75 MG capsule Take 1 (one) capsule (75 mg total) by mouth 2 (two) times a day (Days supply per fill: 30) . 60 capsule 0 vitamin with Ca-Iron-FA 27-1 mg Tab Take 1 (one) tablet by mouth daily . QUEtiapine (SEROQUEL) 400 MG tablet Take 2 (two) tablets (800 mg total) by mouth nightly . 60 tablet 2 timolol (TIMOPTIC) 0.5 % ophthalmic solution Administer 1 (one) drop into the left eye daily . tiZANidine (Zanaflex) 4 MG tablet Take 2 tabs p.o. nightly . 60 tablet 0 traZODone (DESYREL) 50 MG tablet Take 1 (one) tablet (50 mg total) by mouth nightly as needed . 90 tablet 0 ROS: Negative except for HPI above Physical Exam: Patient Vitals for the past 24 hrs: BP Temp Temp src Pulse Resp SpO2 Height Weight 04/27/24 1531 113/73 97.9 F (36.6 C) Oral 88 18 97 % -- -- 04/27/24 1137 111/67 97.8 F (36.6 C) Oral 76 16 99 % -- -- 04/27/24 1016 -- -- -- -- 15 -- -- -- 04/27/24 0926 -- -- -- -- 15 -- -- -- 04/27/24 0724 104/65 97.6 F (36.4 C) Oral 92 16 96 % -- -- 04/27/24 0548 (!) 91/57 -- -- -- -- -- -- -- 04/27/24 0328 (!) 187/94 -- -- (!) 101 -- -- -- -- 04/27/24 0326 -- 97.8 F (36.6 C) Oral (!) 105 17 98 % -- -- 04/27/24 0241 -- -- -- -- (!) 24 -- -- -- 04/27/24 0127 (!) 206/115 97.7 F (36.5 C) Oral (!) 109 -- 99 % 5' 2 128.3 kg (282 lb 13.6 oz) 04/26/24 2327 (!) 183/168 -- -- (!) 104 -- 98 % -- -- 04/26/242144 (!) 164/112 -- -- -- -- 98 % -- -- 04/26/242143 -- -- -- (!) 104 18 98 % -- -- 04/26/242142 -- -- -- -- 18 -- -- -- 04/26/248 (!) 159/111 97.7 F (36.5 C) Oral (!) 113 18 98 % 5' 2 127 kg (280 lb) Pain Score: 06/03 General: A&O, NAD HEENT: NCAT, PERRL, no tracheal deviation Respiratory: Non-labored, non-distressed CV: RRR Abdomen: nontender, nondistended Neuro: CN II-XII grossly intact Lower Extremity Examination Vascular Exam: Pedal pulses palpable +1/4 for dorsalis pedis and posterior tibial arteries bilaterally. Capillary refill time > 3 seconds to digits 1-5 Right foot and 2 through 5 left foot. Neuro Exam: Sensation decreased to light touch to bilateral feet. No Tinel's or Vallieux's Signs. Deep tendon reflexes intact bilaterally. Proprioception intact bilaterally. Musc Exam: Muscle strength +5/5 for lower extremity extrinsic musculature bilaterally. Range of motion is within normal limits for the ankle joint, subtalar joint, midtarsal joint, metatarsal phalangeal joints without pain or crepitus bilaterally. Derm Exam: Labs: Lab Results Component Value Date GLUCOSE 361 (H) 04/27/2024 BUN 26 (H) 04/27/2024 CREATININE 1.34 (H) 04/27/2024 K 4.3 04/27/2024 NA 135 04/27/2024 CL 99 04/27/2024 CALCIUM 8.7 04/27/2024 Lab Results Component Value Date WBC 9.85 04/27/2024 HGB 11.3 (L) 04/27/2024 HCT 33.0 (L) 04/27/2024 MCV 90.9 04/27/2024 PLT 287 04/27/2024 Lab Results Component Value Date PTT 34 06/03/2023 INR 1.0 06/03/2023 Lab Results Component Value Date HGBA1C 9.3 (H) 01/12/2024 Lab Results Component Value Date SEDRATE 58 (H) 04/26/2024 Lab Results Component Value Date CRP 91.8 (H) 04/26/2024 * Cannot find OR log * Imaging: XR Foot Left 3+ Views (Standard) Result Date: 04/26/2024 EXAMINATION: XR FOOT LEFT 3+ VIEWS (STANDARD) 04/26/2024 8:26 pm HISTORY: ORDERING SYSTEM PROVIDED HISTORY: post op eval, TECHNOLOGIST PROVIDED HISTORY: Illness/Other Reason for exam: Patient arrives with EMS ([facility]). She ambulated off of EMS cot with assistance to bed. 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 Patient states that she has been on antibiotics since surgery but does not know the name of what she has been taking. She states her dressing was changed 2 days ago. She reports redness, pain and clear drainage. Cancer History: u Surgery, RadiationHistory: pacemaker Encounter Type: Initial Additional signs and symptoms: Patient arrives with EMS ([facility]). She ambulated off of EMS cot with assistance to bed. 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 Patient states that she has been on antibiotics since surgery but does not know the name of what she has been taking. She states her dressing was changed 2 days ago. She reports redness, pain and clear drainage. ORDERING SYSTEM PROVIDED DIAGNOSIS CODES: COMPARISON: 04/01/2024. FINDINGS/ 1. Prior amputation of the 1st distal phalanx is again noted. Soft tissue swelling is noted in the great toe, with possible skin wound/ulcer in the distal amputation site. No radiopaque foreign body or abnormal gas bubbles are seen. 2. No bony erosion or radiographic signs of osteomyelitis (though MRI is more sensitive for this diagnosis). 3. Moderate tibiotalar joint osteoarthrosis is noted, with joint space narrowing, small marginal osteophytes, and probable small subchondral cysts. 4. Lateral plate and screws internally fix the distal left fibula to near anatomic alignment, and this orthopedic hardware is incompletely imaged. 5. No acute fracture, malalignment, or other acute bony abnormality is seen. Workstation ID: [id number] Assessment detail: The total time spent for this visit was greater than 35 minutes. Greater than 50% of the time was spent in counseling and coordination of care and direct patient management. Cosigned by Floyd Castillo DPM at 04/28/2024 8:17 AM EST [facility] 04-27-2024 Consult note Associated Order (s): IP CONSULT TO PODIATRY Images from the original note were not included. [facility] H&P/CONSULT ASSESSMENT: Diabetes T2 with neuropathy 2. Hyperglycemia 3. CKD Stage III 4. H/o Seizures 5. 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 This is a type II diabetic female with neuropathy history of chronic kidney disease and past chronic ulceration along the left hallux distal tuft. Patient is 26 days out from her left distal phalanx amputation following left distal phalanx osteomyelitis. Patient states that she has pain with activities of daily living and ambulation however on exam patient has no pain to palpation of this amputation site. Patient has surrounding erythema and edema but no malodor. Drainage noted. Sutures are intact with no signs of wound dehiscence or gapping noted along the surgical incision. Sutures removed today as noted below. Will plan to have patient on IV antibiotics during this admission following amputation site cellulitis. Will follow while in house. Left hallux amputation site: - Patient is 26 days from her surgical date. Sutures are intact with no signs of gapping or dehiscence. There is surrounding erythema and edema but no malodor. Drainage noted to the surgical incision. Stitches were removed today by cleansing the skin with alcohol and gently removing the stitches. Betadine dry sterile dressing pattern changer the amputation site. -- OR Plans: None - ABX: cefazolin based on recent surgical cultures, per primary - DSG: Betadine dry sterile dressing pattern changer the amputation site. - WBS: Heel weightbearing left foot Answered questions and rediscussed plan at length with the patient and family if present. Discussed plan with other teams' providers. We discussed with the patient the pathology, etiology, pathogenesis, current condition management plan and disposition. This was discussed at various times during the day with representatives from nursing, pharmacy, case management, social work, and therapies as needed. We discussed with the patient he etiology of problems listed in the Assessment and Plan section, as well as risk factors, natural course, prognosis, treatment options with associated risks and benefits. Importance of compliance with the treatment plan was emphasized. I explained test results to date, as well as additional diagnostic recommendations. I explained discharge plans, including the required post-hospitalization care, treatment, and services. All questions were answered and ample time was provided. Thank you for the consult! Avila Rajan PA-C, Foot and Ankle Surgery 04/27/2024 HISTORY: Addie Jean Baptiste is a 49 y.o. YEAR OLD female with PMH listed below who WAS ADMITTED TO [facility] [place] ON 04/26/2024 WITH postop toe infection Chief Complaint Patient presents with Post-op Problem Toe Pain I AM BEING ASKED TO SEE THIS PATIENT AT THE REQUEST OF DR. Harshad Rizzo MD . The patient presents with pain along her left hallux amputation site. Patient denies any constitutional signs and symptoms of infection including fever, chills, nausea, vomiting, diarrhea. Patient denies any worrisome signs of worsening local infection including nonblanchable proximally spreading erythema, edema, malodor, purulent drainage from this left hallux amputation site. Patient states that she has occasional serous drainage from this but does not have any purulent drainage. Patient states that she had finished her prescribed antibiotics on discharge. Patient states that she occasionally performs Betadine dry sterile dressing changes which is good for her as she, picks at this amputation site. Patient was advised to have a follow-up appointment with our office 2 weeks after her hospital admission. Patient states that she had called the office once and did not get a response back and then failed to make this follow-up appointment. Patient has no pain to palpation of her amputation site today on exam. PAST MEDICAL HISTORY: Past Medical History: Diagnosis Date Anxiety Bipolar 1 disorder (HCC) Chronic back pain Chronic kidney disease, stage 3 unspecified (HCC) Coronary artery disease Depression Diabetes mellitus (HCC) Hypertension MRSA (methicillin resistant Staphylococcus aureus) Pacemaker Seizures (HCC) Stroke (HCC) PAST SURGICAL HISTORY: Past Surgical History: Procedure Laterality Date CHOLECYSTECTOMY FOOT SURGERY HYSTERECTOMY ORTHOPEDIC SURGERY left foot surgery PACEMAKER INSERTION NM AMPUTATION TOE METATARSOPHALANGEAL JOINT Left 04/01/2024 Procedure: AMPUTATION LEFT HALLUX; Surgeon: Shameka Castillo DPM; Location: [facility] [place] Main OR; Service: Podiatry FAMILY MEDICAL HISTORY: Family History Problem Relation Age of Onset Seizures Mother Diabetes Father Hypertension Father Diabetes type II Father SOCIAL HISTORY: Social History Tobacco Use Smoking status: Former Current packs/day: 1.00 Average packs/day: 1 pack/day for 18.4 years (18.4 ttl pk-yrs) Types: Cigarettes Start date: 09/30/2014 Passive exposure: Current Smokeless tobacco: Never Tobacco comments: Vaping 6 mg nicotine Vaping Use Vaping status: Every Day Substances: Nicotine, Flavoring Devices: Pre-filled or refillable cartridge Substance Use Topics Alcohol use: No Alcohol/week: 0.0 standard drinks of alcohol Drug use: Yes Types: Marijuana Comment: smoking as needed, last use thursday night DRUG/FOOD ALLERGIES: Iodides, Ketorolac, Tramadol, Codeine, Propoxyphene n-acetaminophen, Adhesive, Compazine [prochlorperazine], Ct: iodinated contrast- oral and iv dye, Fentanyl, Ibuprofen, Latex, Linezolid, Lorazepam, Nsaids (non-steroidal anti-inflammatory drug), Vancomycin, and Propoxyphene MEDICATIONS: Current Facility-Administered Medications Medication Dose Route Frequency Provider Last Rate Last Admin albuterol (PROVENTIL) 2.5 mg /3 mL (0.083 %) nebulizer solution 2.5 mg 2.5 mg Nebulization Q6H PRN Harshad Rizzo MD atorvastatin (LIPITOR) tablet 40 mg 40 mg Oral Nightly Harshad Rizzo MD 40 mg at 04/27/24 0242 busPIRone (BUSPAR) tablet 30 mg 30 mg Oral BID Harshad Rizzo MD 30 mg at 04/27/24 0803 ceFAZolin (ANCEF) IVPB 2 g (premix) 2,000 mg Intravenous Q8H Harshad Rizzo MD Stopped at 04/27/24 1453 enoxaparin (LOVENOX) syringe 40 mg 40 mg Subcutaneous BID Harshad Rizzo MD 40 mg at 04/27/24 0804 hydrALAZINE (APRESOLINE) injection 10 mg 10 mg Intravenous Q6H PRN Harshad Rizzo MD 10 mg at 04/27/24 0426 insulin glargine (LANTUS) injection 45 Units 45 Units Subcutaneous Nightly Lucina Preciado, BEATRIZ insulin lispro (AdmeLOG,HumaLOG) injection 0-15 Units 0-15 Units Subcutaneous at bedtime Harshad Rizzo MD 9 Units at 04/27/24 0242 insulin lispro (AdmeLOG,HumaLOG) injection 0-30 Units 0-30 Units Subcutaneous TID AC Harshad Rizzo MD 18 Units at 04/27/24 1137 lamoTRIgine (LAMICTAL) tablet 25 mg 25 mg Oral BID Harshad Rizzo MD 25 mg at 04/27/24 0804 levothyroxine (SYNTHROID, LEVOTHROID) tablet 75 mcg 75 mcg Oral Daily Harshad Rizzo MD 75 mcg at 04/27/24 0544 metoprolol tartrate (LOPRESSOR) tablet 25 mg 25 mg Oral BID Harshad Rizzo MD 25 mg at 04/27/24 0804 naloxone (NARCAN) injection 0.1 mg 0.1 mg Intravenous PRN Harshad Rizzo MD And naloxone (NARCAN) injection 0.4 mg 0.4 mg Intravenous PRN Harshad Rizzo MD nicotine (NICODERM CQ) 14 mg/24 hr 1 patch 1 patch Transdermal Daily Harshad Rizzo MD 1 patch at 04/27/24 0804 nortriptyline (PAMELOR) capsule 25 mg 25 mg Oral Nightly Harshad Rizzo MD 25 mg at 04/27/24 0241 ondansetron (ZOFRAN) injection 4 mg 4 mg Intravenous Q6H PRN Harshad Rizzo MD 4 mg at 04/27/24 0310 oxyCODONE-acetaminophen (PERCOCET) 5-325 mg per tablet 1 tablet 1 tablet Oral Q4H PRN Harshad Rizzo MD 1 tablet at 04/27/24 0926 pantoprazole (PROTONIX) EC tablet 40 mg 40 mg Oral QAM AC Harshad Rizzo MD 40 mg at 04/27/24 0804 pregabalin (LYRICA) capsule 75 mg 75 mg Oral BID Harshad Rizzo MD 75 mg at 04/27/24 0803 QUEtiapine (SEROQUEL) tablet 800 mg 800 mg Oral Nightly Harshad Rizzo MD 800 mg at 04/27/24 0241 senna (SENOKOT) tablet 17.2 mg 2 tablet Oral Nightly Harshad Rizzo MD 17.2 mg at 04/27/24 0241 timolol (TIMOPTIC) 0.5 % ophthalmic solution 1 drop 1 drop Left Eye Daily Harshad Rizzo MD tiZANidine (ZANAFLEX) tablet 4 mg 4 mg Oral Nightly Harshad Rizzo MD 4 mg at 04/27/24 0241 traZODone (DESYREL) tablet 50 mg 50 mg Oral Nightly PRN Harshad Rizzo MD 50 mg at 04/27/24 0241 Medications Prior to Admission Medication Sig Dispense Refill Last Dose/Taking albuterol (PROVENTIL) 2.5 mg /3 mL (0.083 %) nebulizer solution Take 3 mL (2.5 mg total) by nebulization every 6 (six) hours as needed for wheezing or shortness of breath . 75 mL 3 albuterol 90 mcg/actuation inhaler Inhale 1 (one) puff every 4 to 6 hours as needed for shortness of breath or wheezing . 18 g 3 alcohol swabs PadM Apply 1 (one) Swab. topically 5 (five) times a day Clean area before administering insulin. . 150 each 5 atorvastatin (LIPITOR) 40 MG tablet Take 1 (one) tablet (40 mg total) by mouth nightly . 90 tablet 0 blood sugar diagnostic (glucose blood) strips by Miscellaneous route 3 (three) times a day As a backup to CGM to test blood sugar. One Touch Verio . 100 strip 5 busPIRone (BUSPAR) 30 MG tablet Take 1 (one) tablet (30 mg total) by mouth 2 (two) times a day . chlorthalidone (HYGROTON) 25 MG tablet Take 1 (one) tablet (25 mg total) by mouth daily . 90 tablet 1 citalopram (CELEXA) 40 MG tablet Take 1 (one) tablet (40 mg total) by mouth daily . 90 tablet 1 Dexcom G6 Vibrator Operator [facility] Use as directed for continuous glucose monitoring . 1 each 0 Dexcom G6 Sensor Simran Use as directed for continuous glucose monitoring change every 10 days . 3 each 11 Dexcom G6 Transmitter Simran Use as directed for continuous glucose monitoring change every 3 months . 1 each 3 ergocalciferol (Vitamin D2) 1,250 mcg (50,000 unit) capsule Take 1 (one) capsule (50,000 Units total) by mouth once a week . 12 capsule 1 glucagon (Gvoke HypoPen 2-Pack) 1 mg/0.2 mL AtIn Inject 0.2 mL (1 mg total) under the skin as needed . 2 mL 1 hydrOXYzine (VISTARIL) 25 MG capsule Take 1 (one) capsule (25 mg total) by mouth 2 (two) times a day as needed for itching or anxiety . 180 capsule 0 inhalational spacing device inhaler Use as instructed . 1 each 2 insulin lispro (AdmeLOG,HumaLOG) 100 unit/mL injection Inject up to 150 units once daily via pump . 50 mL 5 INSULIN PUMP CARTRIDGE SUBQ Inject under the skin Use as directed . lamoTRIgine (LAMICTAL) 25 MG tablet Take 1 (one) tablet (25 mg total) by mouth 2 (two) times a day . 60 tablet 2 lancets Misc 1 Lancet by Miscellaneous route 3 (three) times a day . 100 each 5 levETIRAcetam (KEPPRA) 1000 MG tablet Take 1 (one) tablet (1,000 mg total) by mouth 2 (two) times a day . 180 tablet 1 levothyroxine (SYNTHROID, LEVOTHROID) 75 MCG tablet Take 1 (one) tablet (75 mcg total) by mouth once daily . 90 tablet 0 lidocaine (LMX) 4 % cream Apply topically 3 (three) times a day . 90 g 3 lidocaine-prilocaine (EMLA) cream Apply topically as needed . 30 g 1 lisinopriL (PRINIVIL,ZESTRIL) 40 MG tablet Take 1 (one) tablet (40 mg total) by mouth daily . 90 tablet 1 loperamide (IMODIUM) 2 mg capsule Take 1 (one) capsule (2 mg total) by mouth as needed for diarrhea (Max dose 7 pills) . 20 capsule 1 loratadine (CLARITIN) 10 mg tablet Take 1 (one) tablet (10 mg total) by mouth daily . 90 tablet 1 metFORMIN (GLUCOPHAGE) 1000 MG tablet Take 1 (one) tablet (1,000 mg total) by mouth 2 (two) times a day . 60 tablet 5 metoprolol succinate (TOPROL-XL) 50 MG 24 hr tablet Take 1 (one) tablet (50 mg total) by mouth daily . 90 tablet 1 miscellaneous medical supply [facility] 1 each by Miscellaneous route daily . 100 each 2 naloxone (NARCAN) 4 mg/actuation Rafael Gonzalez Administer 1 spray into one nostril for known or suspected opioid overdose. If patient worsens or does not respond, may repeat in 2-3 minutes. . 2 each 0 nortriptyline (PAMELOR) 25 MG capsule Take 1 (one) capsule (25 mg total) by mouth nightly . 90 capsule 1 nystatin (MYCOSTATIN) powder Apply topically 2 (two) times a day . 30 g 1 omeprazole (PRILOSEC) 40 MG capsule Take 1 (one) capsule (40 mg total) by mouth 2 (two) times a day . Omnipod 5 G6 Pods, Gen 5, Crtg Omnipod Insulin Refill Crtg ondansetron (ZOFRAN-ODT) 4 MG disintegrating tablet Dissolve 1 (one) tablet (4 mg total) on top of tongue every 8 (eight) hours as needed for nausea . 20 tablet 1 oxyCODONE-acetaminophen (PERCOCET) 5-325 mg per tablet Take 1 (one) tablet by mouth every 6 (six) hours as needed for pain (Days supply per fill: 30) . 15 tablet 0 oxyCODONE-acetaminophen (PERCOCET) 5-325 mg per tablet Take 1 (one) tablet by mouth every 4 (four) hours as needed for pain (Days supply per fill: 10) MAX 6/DAY FOR ACUTE POST-OP PAIN . 45 tablet 0 pantoprazole (PROTONIX) 40 MG tablet Take 1 (one) tablet (40 mg total) by mouth daily . 90 tablet 1 pregabalin (LYRICA) 75 MG capsule Take 1 (one) capsule (75 mg total) by mouth 2 (two) times a day (Days supply per fill: 30) . 60 capsule 0 vitamin with Ca-Iron-FA 27-1 mg Tab Take 1 (one) tablet by mouth daily . QUEtiapine (SEROQUEL) 400 MG tablet Take 2 (two) tablets (800 mg total) by mouth nightly . 60 tablet 2 timolol (TIMOPTIC) 0.5 % ophthalmic solution Administer 1 (one) drop into the left eye daily . tiZANidine (Zanaflex) 4 MG tablet Take 2 tabs p.o. nightly . 60 tablet 0 traZODone (DESYREL) 50 MG tablet Take 1 (one) tablet (50 mg total) by mouth nightly as needed . 90 tablet 0 ROS: Negative except for HPI above Physical Exam: Patient Vitals for the past 24 hrs: BP Temp Temp src Pulse Resp SpO2 Height Weight 04/27/24 1531 113/73 97.9 F (36.6 C) Oral 88 18 97 % -- -- 04/27/24 1137 111/67 97.8 F (36.6 C) Oral 76 16 99 % -- -- 04/27/24 1016 -- -- -- -- 15 -- -- -- 04/27/24 0926 -- -- -- -- 15 -- -- -- 04/27/24 0724 104/65 97.6 F (36.4 C) Oral 92 16 96 % -- -- 04/27/24 0548 (!) 91/57 -- -- -- -- -- -- -- 04/27/24 0328 (!) 187/94 -- -- (!) 101 -- -- -- -- 04/27/24 0326 -- 97.8 F (36.6 C) Oral (!) 105 17 98 % -- -- 04/27/24 0241 -- -- -- -- (!) 24 -- -- -- 04/27/24 0127 (!) 206/115 97.7 F (36.5 C) Oral (!) 109 -- 99 % 5' 2 128.3 kg (282 lb 13.6 oz) 04/26/247 (!) 183/168 -- -- (!) 104 -- 98 % -- -- 04/26/242144 (!) 164/112 -- -- -- -- 98 % -- -- 04/26/242143 -- -- -- (!) 104 18 98 % -- -- 04/26/242142 -- -- -- -- 18 -- -- -- 04/26/24 1938 (!) 159/111 97.7 F (36.5 C) Oral (!) 113 18 98 % 5' 2 127 kg (280 lb) Pain Score: 06/03 General: A&O, NAD HEENT: NCAT, PERRL, no tracheal deviation Respiratory: Non-labored, non-distressed CV: RRR Abdomen: nontender, nondistended Neuro: CN II-XII grossly intact Lower Extremity Examination Vascular Exam: Pedal pulses palpable +1/4 for dorsalis pedis and posterior tibial arteries bilaterally. Capillary refill time > 3 seconds to digits 1-5 Right foot and 2 through 5 left foot. Neuro Exam: Sensation decreased to light touch to bilateral feet. No Tinel's or Vallieux's Signs. Deep tendon reflexes intact bilaterally. Proprioception intact bilaterally. Musc Exam: Muscle strength +5/5 for lower extremity extrinsic musculature bilaterally. Range of motion is within normal limits for the ankle joint, subtalar joint, midtarsal joint, metatarsal phalangeal joints without pain or crepitus bilaterally. Derm Exam: Labs: Lab Results Component Value Date GLUCOSE 361 (H) 04/27/2024 BUN 26 (H) 04/27/2024 CREATININE 1.34 (H) 04/27/2024 K 4.3 04/27/2024 NA 135 04/27/2024 CL 99 04/27/2024 CALCIUM 8.7 04/27/2024 Lab Results Component Value Date WBC 9.85 04/27/2024 HGB 11.3 (L) 04/27/2024 HCT 33.0 (L) 04/27/2024 MCV 90.9 04/27/2024 PLT 287 04/27/2024 Lab Results Component Value Date PTT 34 06/03/2023 INR 1.0 06/03/2023 Lab Results Component Value Date HGBA1C 9.3 (H) 01/12/2024 Lab Results Component Value Date SEDRATE 58 (H) 04/26/2024 Lab Results Component Value Date CRP 91.8 (H) 04/26/2024 * Cannot find OR log * Imaging: XR Foot Left 3+ Views (Standard) Result Date: 04/26/2024 EXAMINATION: XR FOOT LEFT 3+ VIEWS (STANDARD) 04/26/2024 8:26 pm HISTORY: ORDERING SYSTEM PROVIDED HISTORY: post op eval, TECHNOLOGIST PROVIDED HISTORY: Illness/Other Reason for exam: Patient arrives with EMS ([facility]). She ambulated off of EMS cot with assistance to bed. 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 Patient states that she has been on antibiotics since surgery but does not know the name of what she has been taking. She states her dressing was changed 2 days ago. She reports redness, pain and clear drainage. Cancer History: u Surgery, RadiationHistory: pacemaker Encounter Type: Initial Additional signs and symptoms: Patient arrives with EMS ([facility]). She ambulated off of EMS cot with assistance to bed. 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 Patient states that she has been on antibiotics since surgery but does not know the name of what she has been taking. She states her dressing was changed 2 days ago. She reports redness, pain and clear drainage. ORDERING SYSTEM PROVIDED DIAGNOSIS CODES: COMPARISON: 04/01/2024. FINDINGS/ 1. Prior amputation of the 1st distal phalanx is again noted. Soft tissue swelling is noted in the great toe, with possible skin wound/ulcer in the distal amputation site. No radiopaque foreign body or abnormal gas bubbles are seen. 2. No bony erosion or radiographic signs of osteomyelitis (though MRI is more sensitive for this diagnosis). 3. Moderate tibiotalar joint osteoarthrosis is noted, with joint space narrowing, small marginal osteophytes, and probable small subchondral cysts. 4. Lateral plate and screws internally fix the distal left fibula to near anatomic alignment, and this orthopedic hardware is incompletely imaged. 5. No acute fracture, malalignment, or other acute bony abnormality is seen. Workstation ID: [id number] Assessment detail: The total time spent for this visit was greater than 35 minutes. Greater than 50% of the time was spent in counseling and coordination of care and direct patient management. Cosigned by Floyd Castillo DPM at 04/28/2024 8:17 AM EST documented in this encounter [facility] 04-27-2024 Note [facility] 04-27-2024 Plan of care note Problem: Actual or potential alteration in health Goal: Absence of healthcare acquired conditions Outcome: Partially Met Goal: Knowledge of Interdisciplinary Plan of Care Outcome: Partially Met Goal: Knowledge of Enviroment Outcome: Partially Met Problem: Pain Goal: Reduced pain sensation Outcome: Partially Met Goal: Control of acute pain to acceptable level Outcome: Partially Met Goal: Able to cope with pain Outcome: Partially Met Goal: Able to achieve maximum level of physical functioning Outcome: Partially Met Goal: Able to achieve maximum level of psychosocial functioning Outcome: Partially Met Problem: Pressure Injury, Risk of Goal: Absence of pressure injury Outcome: Partially Met [facility] 04-26-2024 History and physical note [facility] [place] [facility] -- [facility] Patient Name: Addie Jean Baptiste : 1975 MR #: [id number] Admit Date: 04/26/2024 Physicians: Stephany Pelayo PA-C (Family); No ref. provider found (Referring) Addie Jean Baptiste is a 48 y.o. female patient of Stephany Pelayo PA-C with history of T2DM, HTN, bipolar disorder, and chronic back pain presented to [facility] on 01/12/2024 with left toe wound. Assessment and Plan Postop toe infection Left hallux osteomyelitis s/p amputation Diabetic foot infection Was recently discharged after amputation on 04/01 Missed postop follow-up with podiatry Sutures in place with swelling around the toe remnant; sutures may need to be removed to allow for drainage of wound; will defer to podiatry in the morning Afebrile; WBC 11.9 CRP 92 Prior wound culture 03/25 with MSSA Xray L foot: Soft tissue swelling Zosyn given in ED; will start on cefazolin based on recent surgical cultures Finished course of clindamycin and doxycycline 2 weeks ago Podiatry consulted from ED Pain control Acute kidney injury Likely due to poorly controlled hypertension Creatinine 1.6 (baseline ~1.1-1.2) Continue IV fluids for 24 hours Recent renal ultrasound normal Counseled about tighter blood pressure control T2DM, with current long-term use of insulin Diabetic peripheral neuropathy Recent A1c 9.9% Home insulin regimen: insulin pump Continue with lantus and SSI Counseled about tighter glycemic control Hypertension Continue metoprolol and SHAJI inhibitor Seizure disorder Continue home keppra Obesity Body mass index is 45.73 kg/m . Discussed dietary and lifestyle modifications Residence prior to admission: house or apartment Was patient transferred from outlying hospital or ED no Quality Measures DVT Prophylaxis: lovenox Chow Catheter: absent Medication Reconciliation: Verified Risk variables present on admission: Acute Kidney Injury. Please see assessment and plan for further details. Code Status Full Code; code status verified on 04/26/2024 with patient (capacity intact) Chief Complaint foot pain History of Present Illness 49-year-old female with poorly controlled diabetes and recent left toe amputation for osteomyelitis presented to ED complaining of swelling of the surgical side and pain. She reports she missed her appointment with podiatry clinic and decided to come to ED for further evaluation. Patient seen and examined at bedside. Appears in mild acute distress. Complaining of pain in her toe.denies any shortness of breath, palpitation, chest pain, fever, chills, cough, nausea, vomiting, diarrhea, constipation or headache. Left hallux wound noted sutures are still in place. There is swelling around the wound with no sign of drainage or abscess formation. She has received intravenous Zosyn in ED and podiatry has been consulted. Will admit her to medical floor for IV antibiotics and podiatry care evaluation of her wound. Past Medical History Past Medical History: Diagnosis Date Anxiety Bipolar 1 disorder (HCC) Chronic back pain Chronic kidney disease, stage 3 unspecified (HCC) Coronary artery disease Depression Diabetes mellitus (HCC) Hypertension MRSA (methicillin resistant Staphylococcus aureus) Pacemaker Seizures (HCC) Stroke (HCC) Past Surgical History Past Surgical History: Procedure Laterality Date CHOLECYSTECTOMY FOOT SURGERY HYSTERECTOMY ORTHOPEDIC SURGERY left foot surgery PACEMAKER INSERTION NM AMPUTATION TOE METATARSOPHALANGEAL JOINT Left 04/01/2024 Procedure: AMPUTATION LEFT HALLUX; Surgeon: Shameka Castillo DPM; Location: [facility] [place] Main [place]; Service: Podiatry Family History Family History Problem Relation Age of Onset Seizures Mother Diabetes Father Hypertension Father Diabetes type II Father Social History Social History Tobacco Use Smoking Status Former Current packs/day: 1.00 Average packs/day: 1 pack/day for 18.4 years (18.4 ttl pk-yrs) Types: Cigarettes Start date: 09/30/2014 Passive exposure: Current Smokeless Tobacco Never Tobacco Comments Vaping 6 mg nicotine Social History Substance and Sexual Activity Alcohol Use No Alcohol/week: 0.0 standard drinks of alcohol Social History Substance and Sexual Activity Drug Use Yes Types: Marijuana Comment: smoking as needed, last use thursday night Allergy Information I have reviewed the patient's allergies. Iodides, Ketorolac, Tramadol, Codeine, Propoxyphene n-acetaminophen, Adhesive, Compazine [prochlorperazine], Ct: iodinated contrast- oral and iv dye, Fentanyl, Ibuprofen, Latex, Linezolid, Lorazepam, Nsaids (non-steroidal anti-inflammatory drug), Vancomycin, and Propoxyphene Home Medications Home medications were reviewed. Review Of Systems All relevant systems have been reviewed and are negative except as noted in HPI or below Physical Examination BP (!) 164/112 (BP Location: Right arm) Pulse (!) 104 Temp 97.7 F (36.5 C) (Oral) Resp 18 Ht 5' 2 Wt 127 kg (280 lb) SpO2 98% BMI 51.21 kg/m General Appearance: alert; acutely ill appearing; in mild acute distress HEENT: Head- normocephalic; Eyes- EOMI, sclera anicteric; Throat- mucous membranes moist Cardiovascular: regular rate and rhythm; normal S1, S2; no murmurs, rubs, clicks or gallops; peripheral edema absent Respiratory: lungs clear to auscultation; without wheezes, rales or rhonchi; on room air Abdomen: soft, non-tender, non-distended Neurological: oriented x 3; normal speech; no focal findings or movement disorder noted Musculoskeletal: no significant deformity or tenderness to palpation Skin: normal coloration Psych: normal mood and affect Laboratory and Additional Data Reviewed Laboratory 04/26/24 11:47 PM Radiology 04/26/24 11:47 PM Cardiology 04/26/24 11:47 PM Medications 04/26/24 11:47 PM [facility] 04-26-2024 History and physical note [facility] [place] [facility] -- [facility] Patient Name: Addie Jean Baptiste : 1975 MR #: [id number] Admit Date: 04/26/2024 Physicians: Stephany Pelayo PA-C (Family); No ref. provider found (Referring) Addie Jean Baptiste is a 48 y.o. female patient of Stephany Pelayo PA-C with history of T2DM, HTN, bipolar disorder, and chronic back pain presented to [facility] on 01/12/2024 with left toe wound. Assessment and Plan Postop toe infection Left hallux osteomyelitis s/p amputation Diabetic foot infection Was recently discharged after amputation on 04/01 Missed postop follow-up with podiatry Sutures in place with swelling around the toe remnant; sutures may need to be removed to allow for drainage of wound; will defer to podiatry in the morning Afebrile; WBC 11.9 CRP 92 Prior wound culture 03/25 with MSSA Xray L foot: Soft tissue swelling Zosyn given in ED; will start on cefazolin based on recent surgical cultures Finished course of clindamycin and doxycycline 2 weeks ago Podiatry consulted from ED Pain control Acute kidney injury Likely due to poorly controlled hypertension Creatinine 1.6 (baseline ~1.1-1.2) Continue IV fluids for 24 hours Recent renal ultrasound normal Counseled about tighter blood pressure control T2DM, with current long-term use of insulin Diabetic peripheral neuropathy Recent A1c 9.9% Home insulin regimen: insulin pump Continue with lantus and SSI Counseled about tighter glycemic control Hypertension Continue metoprolol and SHAJI inhibitor Seizure disorder Continue home keppra Obesity Body mass index is 45.73 kg/m . Discussed dietary and lifestyle modifications Residence prior to admission: house or apartment Was patient transferred from outlying hospital or ED no Quality Measures DVT Prophylaxis: lovenox Chow Catheter: absent Medication Reconciliation: Verified Risk variables present on admission: Acute Kidney Injury. Please see assessment and plan for further details. Code Status Full Code; code status verified on 04/26/2024 with patient (capacity intact) Chief Complaint foot pain History of Present Illness 49-year-old female with poorly controlled diabetes and recent left toe amputation for osteomyelitis presented to ED complaining of swelling of the surgical side and pain. She reports she missed her appointment with podiatry clinic and decided to come to ED for further evaluation. Patient seen and examined at bedside. Appears in mild acute distress. Complaining of pain in her toe.denies any shortness of breath, palpitation, chest pain, fever, chills, cough, nausea, vomiting, diarrhea, constipation or headache. Left hallux wound noted sutures are still in place. There is swelling around the wound with no sign of drainage or abscess formation. She has received intravenous Zosyn in ED and podiatry has been consulted. Will admit her to medical floor for IV antibiotics and podiatry care evaluation of her wound. Past Medical History Past Medical History: Diagnosis Date Anxiety Bipolar 1 disorder (HCC) Chronic back pain Chronic kidney disease, stage 3 unspecified (HCC) Coronary artery disease Depression Diabetes mellitus (HCC) Hypertension MRSA (methicillin resistant Staphylococcus aureus) Pacemaker Seizures (HCC) Stroke (HCC) Past Surgical History Past Surgical History: Procedure Laterality Date CHOLECYSTECTOMY FOOT SURGERY HYSTERECTOMY ORTHOPEDIC SURGERY left foot surgery PACEMAKER INSERTION NM AMPUTATION TOE METATARSOPHALANGEAL JOINT Left 04/01/2024 Procedure: AMPUTATION LEFT HALLUX; Surgeon: Shameka Castillo DPM; Location: [facility] [place] Main [place]; Service: Podiatry Family History Family History Problem Relation Age of Onset Seizures Mother Diabetes Father Hypertension Father Diabetes type II Father Social History Social History Tobacco Use Smoking Status Former Current packs/day: 1.00 Average packs/day: 1 pack/day for 18.4 years (18.4 ttl pk-yrs) Types: Cigarettes Start date: 09/30/2014 Passive exposure: Current Smokeless Tobacco Never Tobacco Comments Vaping 6 mg nicotine Social History Substance and Sexual Activity Alcohol Use No Alcohol/week: 0.0 standard drinks of alcohol Social History Substance and Sexual Activity Drug Use Yes Types: Marijuana Comment: smoking as needed, last use thursday night Allergy Information I have reviewed the patient's allergies. Iodides, Ketorolac, Tramadol, Codeine, Propoxyphene n-acetaminophen, Adhesive, Compazine [prochlorperazine], Ct: iodinated contrast- oral and iv dye, Fentanyl, Ibuprofen, Latex, Linezolid, Lorazepam, Nsaids (non-steroidal anti-inflammatory drug), Vancomycin, and Propoxyphene Home Medications Home medications were reviewed. Review Of Systems All relevant systems have been reviewed and are negative except as noted in HPI or below Physical Examination BP (!) 164/112 (BP Location: Right arm) Pulse (!) 104 Temp 97.7 F (36.5 C) (Oral) Resp 18 Ht 5' 2 Wt 127 kg (280 lb) SpO2 98% BMI 51.21 kg/m General Appearance: alert; acutely ill appearing; in mild acute distress HEENT: Head- normocephalic; Eyes- EOMI, sclera anicteric; Throat- mucous membranes moist Cardiovascular: regular rate and rhythm; normal S1, S2; no murmurs, rubs, clicks or gallops; peripheral edema absent Respiratory: lungs clear to auscultation; without wheezes, rales or rhonchi; on room air Abdomen: soft, non-tender, non-distended Neurological: oriented x 3; normal speech; no focal findings or movement disorder noted Musculoskeletal: no significant deformity or tenderness to palpation Skin: normal coloration Psych: normal mood and affect Laboratory and Additional Data Reviewed Laboratory 04/26/24 11:47 PM Radiology 04/26/24 11:47 PM Cardiology 04/26/24 11:47 PM Medications 04/26/24 11:47 PM documented in this encounter [facility] 04-26-2024 Physician Emergency department Note [facility] EMERGENCY DEPARTMENT ED Provider Note: Name: Addie Jean Baptiste CHIEF COMPLAINT: Chief Complaint Patient presents with Post-op Problem Toe Pain PCP: Stephany Pelayo PA-C HPI: Addie Jean Baptiste is a 49 y.o. female presents with left first toe swelling after surgery, Marbella reports that her left big toe was recently operated on, she had a partial amputation for signs of osteomyelitis. She reports Shameka Castillo performed a partial amputation in early March. She has been taking proper care of her toe, dressing changes every dressing changes as scheduled, she finished her antibiotic course. However 2 days ago she noticed that the toe became swollen, and today when she was cleaning she noted that her toes started to bleed, and the pressure became very intense. Addie expressed frustration with the EMS provider that transported her. She felt that the EMS provider was dismissive to her concerns, and was condescending. PMH: Past Medical History: Diagnosis Date Anxiety Bipolar 1 disorder ([facility]) Chronic back pain Chronic kidney disease, stage 3 unspecified ([facility]) Coronary artery disease Depression Diabetes mellitus ([facility]) Hypertension MRSA (methicillin resistant Staphylococcus aureus) Pacemaker Seizures ([facility]) Stroke ([facility]) Patient Active Problem List Diagnosis Hypertension S/P placement of cardiac pacemaker Type 2 diabetes mellitus with diabetic polyneuropathy, with long-term current use of insulin ([facility]) Bipolar 1 disorder ([facility]) Seizures ([facility]) Chronic chest pain GERD (gastroesophageal reflux disease) Hypothyroidism Diabetic peripheral neuropathy ([facility]) Insomnia Generalized weakness Muscle spasms of both lower extremities Bowel incontinence Vitamin B12 deficiency Vitamin D deficiency Cigarette nicotine dependence COPD (chronic obstructive pulmonary disease) ([facility]) Left-sided weakness History of stroke Visual loss, left eye Family history of pulmonary fibrosis Family history of dementia Urinary incontinence Chronic headaches Hypercholesterolemia CKD (chronic kidney disease) Retinal hemorrhage Diabetic ulcer of left great toe ([facility]) Hypertensive urgency Chronic pain syndrome Chronic pain of both knees Abdominal wound dehiscence Candidiasis Abnormal pigmentation of skin Toe osteomyelitis ([facility]) Postoperative infection PSurg: Past Surgical History: Procedure Laterality Date CHOLECYSTECTOMY FOOT SURGERY HYSTERECTOMY ORTHOPEDIC SURGERY left foot surgery PACEMAKER INSERTION NM AMPUTATION TOE METATARSOPHALANGEAL JOINT Left 04/01/2024 Procedure: AMPUTATION LEFT HALLUX; Surgeon: Shameka Castillo DPM; Location: [facility] [place] Main OR; Service: Podiatry Allergies: Iodides, Ketorolac, Tramadol, Codeine, Propoxyphene n-acetaminophen, Adhesive, Compazine [prochlorperazine], Ct: iodinated contrast- oral and iv dye, Fentanyl, Ibuprofen, Latex, Linezolid, Lorazepam, Nsaids (non-steroidal anti-inflammatory drug), Vancomycin, and Propoxyphene Meds: Previous Medications Medication Sig albuterol (PROVENTIL) 2.5 mg /3 mL (0.083 %) nebulizer solution Take 3 mL (2.5 mg total) by nebulization every 6 (six) hours as needed for wheezing or shortness of breath . albuterol 90 mcg/actuation inhaler Inhale 1 (one) puff every 4 to 6 hours as needed for shortness of breath or wheezing . alcohol swabs PadM Apply 1 (one) Swab. topically 5 (five) times a day Clean area before administering insulin. . atorvastatin (LIPITOR) 40 MG tablet Take 1 (one) tablet (40 mg total) by mouth nightly . blood sugar diagnostic (glucose blood) strips by Miscellaneous route 3 (three) times a day As a backup to CGM to test blood sugar. One Touch Verio . busPIRone (BUSPAR) 30 MG tablet Take 1 (one) tablet (30 mg total) by mouth 2 (two) times a day . chlorthalidone (HYGROTON) 25 MG tablet Take 1 (one) tablet (25 mg total) by mouth daily . citalopram (CELEXA) 40 MG tablet Take 1 (one) tablet (40 mg total) by mouth daily . Dexcom G6 Vibrator Operator Misc Use as directed for continuous glucose monitoring . Dexcom G6 Sensor Simran Use as directed for continuous glucose monitoring change every 10 days . Dexcom G6 Transmitter Simran Use as directed for continuous glucose monitoring change every 3 months . ergocalciferol (Vitamin D2) 1,250 mcg (50,000 unit) capsule Take 1 (one) capsule (50,000 Units total) by mouth once a week . glucagon (Gvoke HypoPen 2-Pack) 1 mg/0.2 mL AtIn Inject 0.2 mL (1 mg total) under the skin as needed . hydrOXYzine (VISTARIL) 25 MG capsule Take 1 (one) capsule (25 mg total) by mouth 2 (two) times a day as needed for itching or anxiety . inhalational spacing device inhaler Use as instructed . insulin lispro (AdmeLOG,HumaLOG) 100 unit/mL injection Inject up to 150 units once daily via pump . INSULIN PUMP CARTRIDGE SUBQ Inject under the skin Use as directed . lamoTRIgine (LAMICTAL) 25 MG tablet Take 1 (one) tablet (25 mg total) by mouth 2 (two) times a day . lancets Misc 1 Lancet by Miscellaneous route 3 (three) times a day . levETIRAcetam (KEPPRA) 1000 MG tablet Take 1 (one) tablet (1,000 mg total) by mouth 2 (two) times a day . levothyroxine (SYNTHROID, LEVOTHROID) 75 MCG tablet Take 1 (one) tablet (75 mcg total) by mouth once daily . lidocaine (LMX) 4 % cream Apply topically 3 (three) times a day . lidocaine-prilocaine (EMLA) cream Apply topically as needed . lisinopriL (PRINIVIL,ZESTRIL) 40 MG tablet Take 1 (one) tablet (40 mg total) by mouth daily . loperamide (IMODIUM) 2 mg capsule Take 1 (one) capsule (2 mg total) by mouth as needed for diarrhea (Max dose 7 pills) . loratadine (CLARITIN) 10 mg tablet Take 1 (one) tablet (10 mg total) by mouth daily . metFORMIN (GLUCOPHAGE) 1000 MG tablet Take 1 (one) tablet (1,000 mg total) by mouth 2 (two) times a day . metoprolol succinate (TOPROL-XL) 50 MG 24 hr tablet Take 1 (one) tablet (50 mg total) by mouth daily . miscellaneous medical supply Mis 1 each by Miscellaneous route daily . naloxone (NARCAN) 4 mg/actuation Rafael Gonzalez Administer 1 spray into one nostril for known or suspected opioid overdose. If patient worsens or does not respond, may repeat in 2-3 minutes. . nortriptyline (PAMELOR) 25 MG capsule Take 1 (one) capsule (25 mg total) by mouth nightly . nystatin (MYCOSTATIN) powder Apply topically 2 (two) times a day . omeprazole (PRILOSEC) 40 MG capsule Take 1 (one) capsule (40 mg total) by mouth 2 (two) times a day . Omnipod 5 G6 Pods, Gen 5, Crtg Omnipod Insulin Refill Crtg ondansetron (ZOFRAN-ODT) 4 MG disintegrating tablet Dissolve 1 (one) tablet (4 mg total) on top of tongue every 8 (eight) hours as needed for nausea . oxyCODONE-acetaminophen (PERCOCET) 5-325 mg per tablet Take 1 (one) tablet by mouth every 6 (six) hours as needed for pain (Days supply per fill: 30) . oxyCODONE-acetaminophen (PERCOCET) 5-325 mg per tablet Take 1 (one) tablet by mouth every 4 (four) hours as needed for pain (Days supply per fill: 10) MAX 6/DAY FOR ACUTE POST-OP PAIN . pantoprazole (PROTONIX) 40 MG tablet Take 1 (one) tablet (40 mg total) by mouth daily . pregabalin (LYRICA) 75 MG capsule Take 1 (one) capsule (75 mg total) by mouth 2 (two) times a day (Days supply per fill: 30) . vitamin with Ca-Iron-FA 27-1 mg Tab Take 1 (one) tablet by mouth daily . QUEtiapine (SEROQUEL) 400 MG tablet Take 2 (two) tablets (800 mg total) by mouth nightly . timolol (TIMOPTIC) 0.5 % ophthalmic solution Administer 1 (one) drop into the left eye daily . tiZANidine (Zanaflex) 4 MG tablet Take 2 tabs p.o. nightly . traZODone (DESYREL) 50 MG tablet Take 1 (one) tablet (50 mg total) by mouth nightly as needed . Social: Social History Tobacco Use Smoking status: Former Current packs/day: 1.00 Average packs/day: 1 pack/day for 18.4 years (18.4 ttl pk-yrs) Types: Cigarettes Start date: 09/30/2014 Passive exposure: Current Smokeless tobacco: Never Tobacco comments: Vaping 6 mg nicotine Substance Use Topics Alcohol use: No Alcohol/week: 0.0 standard drinks of alcohol ROS: All systems negative unless otherwise specified in HPI or MDM PHYSICAL EXAM: Vitals: 04/26/24 1938 04/26/24 2143 04/26/24 2144 04/26/24 2145 BP: (!) 159/111 (!) 164/112 BP Location: Right arm Right arm Patient Position: Sitting Pulse: (!) 113 (!) 104 Resp: 18 18 18 Temp: 97.7 F (36.5 C) TempSrc: Oral SpO2: 98% 98% 98% Weight: 127 kg (280 lb) Height: 5' 2 Gen: A&O NAD HEENT: Normocephalic, atraumatic, EOMI, not icteric. External ears normal. No rhinorrhea. Moist mucous membranes. Neck: Supple, full range of motion, no observable masses. Lungs: No Respiratory distress. Respirations clear, CV: Regular rate, regular rhythm, Abdomen: Soft, nondistended, No rebound tenderness. MSK: No joint swelling, no redness. Notable swelling of the left first toe status post amputation, sutures in place, no wound dehiscence but bleeding to the medial aspect of the incision. No purulent drainage noted redness of the toe extending into the foot. Very tender to palpation warm to touch Skin: No rashes, petechiae, lesions. Normal color per patient. Neuro: No notable facial droop, normal speech, sensation a baseline, strength at baseline psych: Calm, cooperative RESULTS: Labs: Labs Reviewed BASIC METABOLIC PANEL - Abnormal; Notable for the following components: Result Value Glucose 293 (*) BUN 30 (*) Creatinine 1.66 (*) eGFR 38 (*) All other components within normal limits Narrative: [facility] has implemented the eGFR calculation approach that does not have a coefficient for race that conforms to the NKF-ASN Task Force Recommendations. SEDIMENTATION RATE - Abnormal; Notable for the following components: Sed Rate 58 (*) All other components within normal limits CRP, INFLAMMATION - Abnormal; Notable for the following components: CRP(Inflammation) 91.8 (*) All other components within normal limits CBC WITH AUTO DIFFERENTIAL - Abnormal; Notable for the following components: RBC 3.82 (*) Hemoglobin 11.9 (*) Hematocrit 34.9 (*) Neutrophils Abs 8.04 (*) All other components within normal limits CBC AND DIFFERENTIAL Narrative: The following orders were created for panel order CBC w/ Diff. Procedure Abnormality Status --------- ------ CBC Auto Differential[[id number]] Abnormal Final result Please view results for these tests on the individual orders. DARK GREEN TOP Imaging: XR Foot Left 3+ Views (Standard) Final Result FINDINGS/ 1. Prior amputation of the 1st distal phalanx is again noted. Soft tissue swelling is noted in the great toe, with possible skin wound/ulcer in the distal amputation site. No radiopaque foreign body or abnormal gas bubbles are seen. 2. No bony erosion or radiographic signs of osteomyelitis (though MRI is more sensitive for this diagnosis). 3. Moderate tibiotalar joint osteoarthrosis is noted, with joint space narrowing, small marginal osteophytes, and probable small subchondral cysts. 4. Lateral plate and screws internally fix the distal left fibula to near anatomic alignment, and this orthopedic hardware is incompletely imaged. 5. No acute fracture, malalignment, or other acute bony abnormality is seen. Workstation ID: [id number] MEDICAL DECISION MAKING: Addie Jean Baptiste is a 49 y.o. female presents with left first toe swelling after surgery, Marbella reports that her left big toe was recently operated on, she had a partial amputation for signs of osteomyelitis. She reports Shameka Castillo performed a partial amputation in early March. She has been taking proper care of her toe, dressing changes every dressing changes as scheduled, she finished her antibiotic course. However 2 days ago she noticed that the toe became swollen, and today when she was cleaning she noted that her toes started to bleed, and the pressure became very intense. Addie expressed frustration with the EMS provider that transported her. She felt that the EMS provider was dismissive to her concerns, and was condescending. Addie Jean Baptiste with history as above presented with postoperative toe swelling and pain concern for infection History obtained from addie Physical exam as above. Vital signs show initially tachycardic and hypertensive but otherwise within normal limits Labs reviewed and interpreted by me show labs are notable for elevated ESR and CRP, no large leukocytosis Imaging review by me show x-ray of the foot shows prior amputation of the first distal phalanx, soft tissue swelling noted the great toe, with possible wound/ulcer in the distal amputation site. Procedures Differential diagnoses considered: Postoperative toe infection, wound dehiscence Overall presentation is consistent with postoperative infection of the first left toe addie was treated with IV antibiotics Zosyn, 4 mg IV morphine Additional ED course information: ED Disposition ED Disposition Hospitalize Condition -- Comment Phone call required?: No Jacoby Dooley MD 04/26/24 [id number] [facility] 04-26-[address] [facility] EMERGENCY DEPARTMENT ED Provider Note: Name: Addie Jean Baptiste CHIEF COMPLAINT: Chief Complaint Patient presents with Post-op Problem Toe Pain PCP: Stephany Pelayo PA-C HPI: Addie Jean Baptiste is a 49 y.o. female presents with left first toe swelling after surgery, Marbella reports that her left big toe was recently operated on, she had a partial amputation for signs of osteomyelitis. She reports Shameka Castillo performed a partial amputation in early March. She has been taking proper care of her toe, dressing changes every dressing changes as scheduled, she finished her antibiotic course. However 2 days ago she noticed that the toe became swollen, and today when she was cleaning she noted that her toes started to bleed, and the pressure became very intense. Addie expressed frustration with the EMS provider that transported her. She felt that the EMS provider was dismissive to her concerns, and was condescending. PMH: Past Medical History: Diagnosis Date Anxiety Bipolar 1 disorder ([facility]) Chronic back pain Chronic kidney disease, stage 3 unspecified ([facility]) Coronary artery disease Depression Diabetes mellitus ([facility]) Hypertension MRSA (methicillin resistant Staphylococcus aureus) Pacemaker Seizures ([facility]) Stroke ([facility]) Patient Active Problem List Diagnosis Hypertension S/P placement of cardiac pacemaker Type 2 diabetes mellitus with diabetic polyneuropathy, with long-term current use of insulin ([facility]) Bipolar 1 disorder ([facility]) Seizures ([facility]) Chronic chest pain GERD (gastroesophageal reflux disease) Hypothyroidism Diabetic peripheral neuropathy ([facility]) Insomnia Generalized weakness Muscle spasms of both lower extremities Bowel incontinence Vitamin B12 deficiency Vitamin D deficiency Cigarette nicotine dependence COPD (chronic obstructive pulmonary disease) ([facility]) Left-sided weakness History of stroke Visual loss, left eye Family history of pulmonary fibrosis Family history of dementia Urinary incontinence Chronic headaches Hypercholesterolemia CKD (chronic kidney disease) Retinal hemorrhage Diabetic ulcer of left great toe ([facility]) Hypertensive urgency Chronic pain syndrome Chronic pain of both knees Abdominal wound dehiscence Candidiasis Abnormal pigmentation of skin Toe osteomyelitis ([facility]) Postoperative infection PSurg: Past Surgical History: Procedure Laterality Date CHOLECYSTECTOMY FOOT SURGERY HYSTERECTOMY ORTHOPEDIC SURGERY left foot surgery PACEMAKER INSERTION NM AMPUTATION TOE METATARSOPHALANGEAL JOINT Left 04/01/2024 Procedure: AMPUTATION LEFT HALLUX; Surgeon: Shameka Castillo DPM; Location: [facility] [place] Main OR; Service: Podiatry Allergies: Iodides, Ketorolac, Tramadol, Codeine, Propoxyphene n-acetaminophen, Adhesive, Compazine [prochlorperazine], Ct: iodinated contrast- oral and iv dye, Fentanyl, Ibuprofen, Latex, Linezolid, Lorazepam, Nsaids (non-steroidal anti-inflammatory drug), Vancomycin, and Propoxyphene Meds: Previous Medications Medication Sig albuterol (PROVENTIL) 2.5 mg /3 mL (0.083 %) nebulizer solution Take 3 mL (2.5 mg total) by nebulization every 6 (six) hours as needed for wheezing or shortness of breath . albuterol 90 mcg/actuation inhaler Inhale 1 (one) puff every 4 to 6 hours as needed for shortness of breath or wheezing . alcohol swabs PadM Apply 1 (one) Swab. topically 5 (five) times a day Clean area before administering insulin. . atorvastatin (LIPITOR) 40 MG tablet Take 1 (one) tablet (40 mg total) by mouth nightly . blood sugar diagnostic (glucose blood) strips by Miscellaneous route 3 (three) times a day As a backup to CGM to test blood sugar. One Touch Verio . busPIRone (BUSPAR) 30 MG tablet Take 1 (one) tablet (30 mg total) by mouth 2 (two) times a day . chlorthalidone (HYGROTON) 25 MG tablet Take 1 (one) tablet (25 mg total) by mouth daily . citalopram (CELEXA) 40 MG tablet Take 1 (one) tablet (40 mg total) by mouth daily . Dexcom G6 Vibrator Operator Misc Use as directed for continuous glucose monitoring . Dexcom G6 Sensor Simran Use as directed for continuous glucose monitoring change every 10 days . Dexcom G6 Transmitter Simran Use as directed for continuous glucose monitoring change every 3 months . ergocalciferol (Vitamin D2) 1,250 mcg (50,000 unit) capsule Take 1 (one) capsule (50,000 Units total) by mouth once a week . glucagon (Gvoke HypoPen 2-Pack) 1 mg/0.2 mL AtIn Inject 0.2 mL (1 mg total) under the skin as needed . hydrOXYzine (VISTARIL) 25 MG capsule Take 1 (one) capsule (25 mg total) by mouth 2 (two) times a day as needed for itching or anxiety . inhalational spacing device inhaler Use as instructed . insulin lispro (AdmeLOG,HumaLOG) 100 unit/mL injection Inject up to 150 units once daily via pump . INSULIN PUMP CARTRIDGE SUBQ Inject under the skin Use as directed . lamoTRIgine (LAMICTAL) 25 MG tablet Take 1 (one) tablet (25 mg total) by mouth 2 (two) times a day . lancets Misc 1 Lancet by Miscellaneous route 3 (three) times a day . levETIRAcetam (KEPPRA) 1000 MG tablet Take 1 (one) tablet (1,000 mg total) by mouth 2 (two) times a day . levothyroxine (SYNTHROID, LEVOTHROID) 75 MCG tablet Take 1 (one) tablet (75 mcg total) by mouth once daily . lidocaine (LMX) 4 % cream Apply topically 3 (three) times a day . lidocaine-prilocaine (EMLA) cream Apply topically as needed . lisinopriL (PRINIVIL,ZESTRIL) 40 MG tablet Take 1 (one) tablet (40 mg total) by mouth daily . loperamide (IMODIUM) 2 mg capsule Take 1 (one) capsule (2 mg total) by mouth as needed for diarrhea (Max dose 7 pills) . loratadine (CLARITIN) 10 mg tablet Take 1 (one) tablet (10 mg total) by mouth daily . metFORMIN (GLUCOPHAGE) 1000 MG tablet Take 1 (one) tablet (1,000 mg total) by mouth 2 (two) times a day . metoprolol succinate (TOPROL-XL) 50 MG 24 hr tablet Take 1 (one) tablet (50 mg total) by mouth daily . miscellaneous medical supply Mis 1 each by Miscellaneous route daily . naloxone (NARCAN) 4 mg/actuation Rafael Gonzalez Administer 1 spray into one nostril for known or suspected opioid overdose. If patient worsens or does not respond, may repeat in 2-3 minutes. . nortriptyline (PAMELOR) 25 MG capsule Take 1 (one) capsule (25 mg total) by mouth nightly . nystatin (MYCOSTATIN) powder Apply topically 2 (two) times a day . omeprazole (PRILOSEC) 40 MG capsule Take 1 (one) capsule (40 mg total) by mouth 2 (two) times a day . Omnipod 5 G6 Pods, Gen 5, Crtg Omnipod Insulin Refill Crtg ondansetron (ZOFRAN-ODT) 4 MG disintegrating tablet Dissolve 1 (one) tablet (4 mg total) on top of tongue every 8 (eight) hours as needed for nausea . oxyCODONE-acetaminophen (PERCOCET) 5-325 mg per tablet Take 1 (one) tablet by mouth every 6 (six) hours as needed for pain (Days supply per fill: 30) . oxyCODONE-acetaminophen (PERCOCET) 5-325 mg per tablet Take 1 (one) tablet by mouth every 4 (four) hours as needed for pain (Days supply per fill: 10) MAX 6/DAY FOR ACUTE POST-OP PAIN . pantoprazole (PROTONIX) 40 MG tablet Take 1 (one) tablet (40 mg total) by mouth daily . pregabalin (LYRICA) 75 MG capsule Take 1 (one) capsule (75 mg total) by mouth 2 (two) times a day (Days supply per fill: 30) . vitamin with Ca-Iron-FA 27-1 mg Tab Take 1 (one) tablet by mouth daily . QUEtiapine (SEROQUEL) 400 MG tablet Take 2 (two) tablets (800 mg total) by mouth nightly . timolol (TIMOPTIC) 0.5 % ophthalmic solution Administer 1 (one) drop into the left eye daily . tiZANidine (Zanaflex) 4 MG tablet Take 2 tabs p.o. nightly . traZODone (DESYREL) 50 MG tablet Take 1 (one) tablet (50 mg total) by mouth nightly as needed . Social: Social History Tobacco Use Smoking status: Former Current packs/day: 1.00 Average packs/day: 1 pack/day for 18.4 years (18.4 ttl pk-yrs) Types: Cigarettes Start date: 09/30/2014 Passive exposure: Current Smokeless tobacco: Never Tobacco comments: Vaping 6 mg nicotine Substance Use Topics Alcohol use: No Alcohol/week: 0.0 standard drinks of alcohol ROS: All systems negative unless otherwise specified in HPI or MDM PHYSICAL EXAM: Vitals: 04/26/24 1938 04/26/24 2143 04/26/24 2144 04/26/24 2145 BP: (!) 159/111 (!) 164/112 BP Location: Right arm Right arm Patient Position: Sitting Pulse: (!) 113 (!) 104 Resp: 18 18 Temp: 97.7 F (36.5 C) TempSrc: Oral SpO2: 98% 98% 98% Weight: 127 kg (280 lb) Height: 5' 2 Gen: A&O NAD HEENT: Normocephalic, atraumatic, EOMI, not icteric. External ears normal. No rhinorrhea. Moist mucous membranes. Neck: Supple, full range of motion, no observable masses. Lungs: No Respiratory distress. Respirations clear, CV: Regular rate, regular rhythm, Abdomen: Soft, nondistended, No rebound tenderness. MSK: No joint swelling, no redness. Notable swelling of the left first toe status post amputation, sutures in place, no wound dehiscence but bleeding to the medial aspect of the incision. No purulent drainage noted redness of the toe extending into the foot. Very tender to palpation warm to touch Skin: No rashes, petechiae, lesions. Normal color per patient. Neuro: No notable facial droop, normal speech, sensation a baseline, strength at baseline psych: Calm, cooperative RESULTS: Labs: Labs Reviewed BASIC METABOLIC PANEL - Abnormal; Notable for the following components: Result Value Glucose 293 (*) BUN 30 (*) Creatinine 1.66 (*) eGFR 38 (*) All other components within normal limits Narrative: [facility] has implemented the eGFR calculation approach that does not have a coefficient for race that conforms to the NKF-ASN Task Force Recommendations. SEDIMENTATION RATE - Abnormal; Notable for the following components: Sed Rate 58 (*) All other components within normal limits CRP, INFLAMMATION - Abnormal; Notable for the following components: CRP(Inflammation) 91.8 (*) All other components within normal limits CBC WITH AUTO DIFFERENTIAL - Abnormal; Notable for the following components: RBC 3.82 (*) Hemoglobin 11.9 (*) Hematocrit 34.9 (*) Neutrophils Abs 8.04 (*) All other components within normal limits CBC AND DIFFERENTIAL Narrative: The following orders were created for panel order CBC w/ Diff. Procedure Abnormality Status --------- ------ CBC Auto Differential[[id number]] Abnormal Final result Please view results for these tests on the individual orders. [facility] Imaging: XR Foot Left 3+ Views (Standard) Final Result FINDINGS/ 1. Prior amputation of the 1st distal phalanx is again noted. Soft tissue swelling is noted in the great toe, with possible skin wound/ulcer in the distal amputation site. No radiopaque foreign body or abnormal gas bubbles are seen. 2. No bony erosion or radiographic signs of osteomyelitis (though MRI is more sensitive for this diagnosis). 3. Moderate tibiotalar joint osteoarthrosis is noted, with joint space narrowing, small marginal osteophytes, and probable small subchondral cysts. 4. Lateral plate and screws internally fix the distal left fibula to near anatomic alignment, and this orthopedic hardware is incompletely imaged. 5. No acute fracture, malalignment, or other acute bony abnormality is seen. Workstation ID: [id number] MEDICAL DECISION MAKING: Addie Jean Baptiste is a 49 y.o. female presents with left first toe swelling after surgery, [place] reports that her left big toe was recently operated on, she had a partial amputation for signs of osteomyelitis. She reports Shameka Castillo performed a partial amputation in early March. She has been taking proper care of her toe, dressing changes every dressing changes as scheduled, she finished her antibiotic course. However 2 days ago she noticed that the toe became swollen, and today when she was cleaning she noted that her toes started to bleed, and the pressure became very intense. Addie expressed frustration with the EMS provider that transported her. She felt that the EMS provider was dismissive to her concerns, and was condescending. Addie Jean Baptiste with history as above presented with postoperative toe swelling and pain concern for infection History obtained from addie Physical exam as above. Vital signs show initially tachycardic and hypertensive but otherwise within normal limits Labs reviewed and interpreted by me show labs are notable for elevated ESR and CRP, no large leukocytosis Imaging review by me show x-ray of the foot shows prior amputation of the first distal phalanx, soft tissue swelling noted the great toe, with possible wound/ulcer in the distal amputation site. Procedures Differential diagnoses considered: Postoperative toe infection, wound dehiscence Overall presentation is consistent with postoperative infection of the first left toe addie was treated with IV antibiotics Zosyn, 4 mg IV morphine Additional ED course information: ED Disposition ED Disposition Hospitalize Condition -- Comment Phone call required?: No Jacoby Dooley MD 04/26/24 6704 Pt reports not taking her BP medication today Patient reports 10/10 pain and states she took her last percocet yesterday. Patient also reports that she does take medication for high blood pressure. Patient arrives with EMS ([facility]). She ambulated off of EMS cot with assistance to bed. 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 Patient states that she has been on antibiotics since surgery but does not know the name of what she has been taking. She states her dressing was changed 2 days ago. She reports redness, pain and clear drainage. Bed: 18 Expected date: Expected time: Means of arrival: Comments: 29 documented in this encounter [facility] 04-26-2024 Emergency department Note Pt reports not taking her BP medication today [facility] 04-26-2024 Emergency department Note Patient reports 10/10 pain and states she took her last percocet yesterday. Patient also reports that she does take medication for high blood pressure. [facility] 04-26-2024 Emergency department Triage note Patient arrives with EMS ([facility]). She ambulated off of EMS cot with assistance to bed. 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 Patient states that she has been on antibiotics since surgery but does not know the name of what she has been taking. She states her dressing was changed 2 days ago. She reports redness, pain and clear drainage. [facility] 04-26-2024 Emergency department Note Bed: 18 Expected date: Expected time: Means of arrival: Comments: 29 [facility] 04-14-2024 Note Addended by: Jyoti ELIZALDE on: 04/14/2024 11:03 AM Modules accepted: Orders [facility] 04-14-2024 Miscellaneous Notes Addended by: MIHAI ELIZALDE on: 04/14/2024 11:03 AM Modules accepted: Orders Already sent remaining 15 tabs Pt had to fill 15 tablets and pay oop due to insurance would not cover. Jean is trying to resubmit to insurance with updated info. But will need new rx for remaining 45 tablets. She only received 1 1/2 day supply and only has 1 tablet left. documented in this encounter [facility] 04-12-2024 Telephone encounter Note Already sent remaining 15 tabs [facility] 04-12-2024 Miscellaneous Notes Already sent remaining 15 tabs Pt had to fill 15 tablets and pay oop due to insurance would not cover. Jean is trying to resubmit to insurance with updated info. But will need new rx for remaining 45 tablets. She only received 1 1/2 day supply and only has 1 tablet left. documented in this encounter [facility] 04-12-2024 Telephone encounter Note Pt had to fill 15 tablets and pay oop due to insurance would not cover. Jean is trying to resubmit to insurance with updated info. But will need new rx for remaining 45 tablets. She only received 1 1/2 day supply and only has 1 tablet left. [facility] 04-06-2024 History of Present illness Narrative PA request from [employer] for Omnipod faxed [employer] prescription request form complete for Omnipod / faxed documented in this encounter [facility] 04-04-2024 Hospital course Narrative Images from the original note were not included. [facility] DISCHARGE SUMMARY Addie Jean Baptiste Admitted: 03/24/2024 Discharge Date: 04/04/24 Handoff to PCP Note to PCP: Follow up podiatry appointment Dr. Castillo in 2 weeks Outpatient tests ordered at discharge: None Inpatient results pending at discharge: None Clinical Summary Addie Jean Baptiste is a 48 y.o. female patient of Stephany Pelayo PA-C with history of T2DM, HTN, bipolar disorder, and chronic back pain presented to [facility] on 03/25/2024 with left toe wound. Sepsis due to Left diabetic toe osteomyelitis s/p amputation 04/01 Hypotension hypovolemic vs iatrogenic from oversedation Acute metabolic encephalopathy-resolved Admitted with worsening left foot big toe pain and swelling. Transferred to ICU 03/26 due to hypotension and lethargy, now back to baseline, out of icu Noted BP 67/53 initially- Received 1.5L total IVF and Narcan with improvement in BP Afebrile; normal WBC on admission. CRP 15.1. Lactic acid elevation due to hypotension, now resolved Wound culture 03/25 with MSSA Xray L foot: Findings suggestive of first distal phalanx osteomyelitis Zosyn, changed to cefazolin on 03/30 ID consulted, recommendation for cefadroxil p.o. 500 mg twice daily until 04/08 Podiatry following, status post amputation left hallux IPJ level on 04/11/2024 Surgical site culture growth of staph epi Bone culture growth of Staph aureus Discharged on clindamycin and doxycycline LDT 04/08 Heel weightbearing of the left leg for the next 2 weeks Outpatient follow-up with podiatry Dr. Castillo in 2 weeks SOLO on chronic kidney disease stage III, resolved Possible component of ATN Hyperkalemia- resolved Hypokalemia - resolved Cr peaked around 2.5, improved down to 1.22, mild increased, remains stable ~1.6. Baseline creatinine 1.3-1.5. Chronic kidney disease due to diabetic nephropathy. Lokelma ordered by nephrology 03/28 Later hypokalemia resolved Nephrology consulted, continue to hold SHAJI diuretics and metformin. Signed off 04/01 Avoid nephrotoxins P.o. hydration protocol ordered UTI UA with pyuria Urine culture with 50-100 K colonies of E. Coli Zosyn changed to cefazolin-to p.o.cefadroxil T2DM on insulin pump Diabetic peripheral neuropathy Last A1c 9.9 % in 03/22/2024 Home insulin regimen: insulin pump Pump with no insulin, started on Lantus, increase dos eot 35U qHs Diabetic diet Consulted conservation educator: Resume insulin pump at discharge, verified insulin available Hypertension Hyperlipidemia Continue to hold SHAJI inhibitor, restart metoprolol and hydralazine PRN Continue Lipitor SBP 106 Sick sinus syndrome PPM implantation in 2011. In 2017 underwent MRI compatible PPM placement at [facility]. Bipolar disorder Home meds including Celexa, BuSpar, Seroquel and Pamelor continued Seizure disorder Continue home lamictal Obesity Body mass index 47 Discussed dietary and lifestyle modifications Results from last 7 days Lab Units 04/04/24 0435 WBC K/mcL 7.11 HGB g/dL 8.9* PLT K/mcL 256 SODIUM mmol/L 141 POTASSIUM mmol/L 4.0 BICARB mmol/L 28 CREATININE mg/dL 1.34* GLUCOSE mg/dL 245* CALCIUM mg/dL 8.4 Discharge Medications Discharge Medications New Medications Details clindamycin 300 MG capsule Commonly known as: CLEOCIN Take 1 (one) capsule (300 mg total) by mouth 3 (three) times a day for 4 days . Quantity: 12 capsule doxycycline hyclate 100 MG tablet Commonly known as: VIBRA-TABS Take 1 (one) tablet (100 mg total) by mouth 2 (two) times a day for 4 days . Quantity: 8 tablet hydrOXYzine 25 MG capsule Commonly known as: VISTARIL Take 1 (one) capsule (25 mg total) by mouth 2 (two) times a day as needed for itching or anxiety . Quantity: 180 capsule Medications To Continue Details * albuterol 90 mcg/actuation inhaler Inhale 1 (one) puff every 4 to 6 hours as needed for shortness of breath or wheezing . Quantity: 18 g * albuterol 2.5 mg /3 mL (0.083 %) nebulizer solution Commonly known as: PROVENTIL Take 3 mL (2.5 mg total) by nebulization every 6 (six) hours as needed for wheezing or shortness of breath . Quantity: 75 mL alcohol swabs Padm Apply 1 (one) Swab. topically 5 (five) times a day Clean area before administering insulin. . Quantity: 150 each atorvastatin 40 MG tablet Commonly known as: LIPITOR Take 1 (one) tablet (40 mg total) by mouth nightly . Quantity: 90 tablet busPIRone 30 MG tablet Commonly known as: BUSPAR Take 1 (one) tablet (30 mg total) by mouth 2 (two) times a day . chlorthalidone 25 MG tablet Commonly known as: HYGROTON Take 1 (one) tablet (25 mg total) by mouth daily . Quantity: 90 tablet citalopram 40 MG tablet Commonly known as: CELEXA Take 1 (one) tablet (40 mg total) by mouth daily . Quantity: 90 tablet Dexcom G6 Vibrator Operator Misc Generic drug: blood-glucose meter,continuous Use as directed for continuous glucose monitoring . Quantity: 1 each Dexcom G6 Sensor Simran Generic drug: blood-glucose sensor Use as directed for continuous glucose monitoring change every 10 days . Quantity: 3 each Dexcom G6 Transmitter Simran Generic drug: blood-glucose transmitter Use as directed for continuous glucose monitoring change every 3 months . Quantity: 1 each ergocalciferol 1,250 mcg (50,000 unit) capsule Commonly known as: Vitamin D2 Take 1 (one) capsule (50,000 Units total) by mouth once a week . Quantity: 12 capsule glucose blood test strip Generic drug: blood sugar diagnostic by Miscellaneous route 3 (three) times a day As a backup to CGM to test blood sugar. One Touch Verio . Quantity: 100 strip Gvoke HypoPen 2-Pack 1 mg/0.2 mL Atin Generic drug: glucagon Inject 0.2 mL (1 mg total) under the skin as needed . Quantity: 2 mL inhalational spacing device inhaler Use as instructed . Quantity: 1 each insulin lispro 100 unit/mL injection Commonly known as: AdmeLOG,HumaLOG Inject up to 150 units once daily via pump . Quantity: 50 mL INSULIN PUMP CARTRIDGE SUBQ Inject under the skin Use as directed . lamoTRIgine 25 MG tablet Commonly known as: LAMICTAL Take 1 (one) tablet (25 mg total) by mouth 2 (two) times a day . Quantity: 60 tablet lancets Misc 1 Lancet by Miscellaneous route 3 (three) times a day . Quantity: 100 each levETIRAcetam 1000 MG tablet Commonly known as: KEPPRA Take 1 (one) tablet (1,000 mg total) by mouth 2 (two) times a day . Quantity: 180 tablet levothyroxine 75 MCG tablet Commonly known as: SYNTHROID, LEVOTHROID Take 1 (one) tablet (75 mcg total) by mouth once daily . Quantity: 90 tablet lidocaine 4 % cream Commonly known as: LMX Apply topically 3 (three) times a day . Quantity: 90 g lidocaine-prilocaine cream Commonly known as: EMLA Apply topically as needed . Quantity: 30 g lisinopriL 40 MG tablet Commonly known as: PRINIVIL,ZESTRIL Take 1 (one) tablet (40 mg total) by mouth daily . Quantity: 90 tablet loperamide 2 mg capsule Commonly known as: IMODIUM Take 1 (one) capsule (2 mg total) by mouth as needed for diarrhea (Max dose 7 pills) . Quantity: 20 capsule loratadine 10 mg tablet Commonly known as: CLARITIN Take 1 (one) tablet (10 mg total) by mouth daily . Quantity: 90 tablet metFORMIN 1000 MG tablet Commonly known as: GLUCOPHAGE Take 1 (one) tablet (1,000 mg total) by mouth 2 (two) times a day . Quantity: 60 tablet metoprolol succinate 50 MG 24 hr tablet Commonly known as: TOPROL-XL Take 1 (one) tablet (50 mg total) by mouth daily . Quantity: 90 tablet miscellaneous medical supply Misc 1 each by Miscellaneous route daily . Quantity: 100 each nortriptyline 25 MG capsule Commonly known as: PAMELOR Take 1 (one) capsule (25 mg total) by mouth nightly . Quantity: 90 capsule nystatin powder Commonly known as: MYCOSTATIN Apply topically 2 (two) times a day . Quantity: 30 g omeprazole 40 MG capsule Commonly known as: PRILOSEC Take 1 (one) capsule (40 mg total) by mouth 2 (two) times a day . Omnipod 5 G6 Pods (Gen 5) Crtg Generic drug: insulin pump cart,automated,BT Omnipod Classic Pods (Gen 3) Crtg Generic drug: insulin pump cart,cont inf,RF ondansetron 4 MG disintegrating tablet Commonly known as: ZOFRAN-ODT Dissolve 1 (one) tablet (4 mg total) on top of tongue every 8 (eight) hours as needed for nausea . Quantity: 20 tablet oxyCODONE-acetaminophen 5-325 mg per tablet Commonly known as: PERCOCET Take 1 (one) tablet by mouth nightly as needed for pain (Days supply per fill: 30) . Quantity: 30 tablet pantoprazole 40 MG tablet Commonly known as: PROTONIX Take 1 (one) tablet (40 mg total) by mouth daily . Quantity: 90 tablet pregabalin 75 MG capsule Commonly known as: LYRICA Take 1 (one) capsule (75 mg total) by mouth 2 (two) times a day (Days supply per fill: 30) . Quantity: 60 capsule vitamin with Ca-Iron-FA 27-1 mg Tab Take 1 (one) tablet by mouth daily . QUEtiapine 400 MG tablet Commonly known as: SEROQUEL Take 2 (two) tablets (800 mg total) by mouth nightly . Quantity: 60 tablet timolol 0.5 % ophthalmic solution Commonly known as: TIMOPTIC Administer 1 (one) drop into the left eye daily . tiZANidine 4 MG tablet Commonly known as: Zanaflex Take 2 tabs p.o. nightly . Quantity: 60 tablet traZODone 50 MG tablet Commonly known as: DESYREL Take 1 (one) tablet (50 mg total) by mouth nightly as needed . Quantity: 90 tablet * There are duplicate medications prescribed to the patient Physician(s) Follow Up: No follow-up provider specified. Condition at discharge: Good Disposition: Home with Home Health I saw Addie Jean Baptiste in person and spent > 30 min total on day of discharge Discharge instructions (including activity) provided to patient/family prior to leaving Completed by: Ruthy Dong MD on 04/04/24, 12:23 PM documented in this encounter [facility] 04-04-2024 Note [facility] 04-04-2024 History of Present illness Narrative [facility] NOTE ASSESSMENT AND PLAN: Diabetes T2 with neuropathy 2. Hyperglycemia 3. CKD Stage III 4. H/o Seizures 5. 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 Amputation left hallux IPJ level for osteomyelitis date of surgery 04/01/2024 Plan- The patient was seen and evaluated and discussed findings with patient. This is a type II diabetic female with neuropathy history of chronic kidney disease chronic ulceration has been present for months of the left hallux distal tuft. She has tried and failed multiple oral antibiotic options. Ancillary imaging and clinical correlation is suggestive of osteomyelitis. POD#3: Amputation left hallux IPJ level DOS: 04/01/2024 Dressing to remain clean dry and intact. The patient will have a Betadine wet-to-dry dressing change daily by nursing starting 04/02/2024. Patient is to be heel weightbearing left lower extremity for the next 2 weeks. She will need a postoperative shoe. Cultures obtained during surgery of both the distal phalanx bone, pathology, a marginal culture. -- OR Plans: complete - ABX: Per ID surgical culture obtained today margin should be clear - DSG: betadine wet to dry daily. - WBS: Heel weightbearing left foot - XR/CT reviewed -clinical interpretation with my personal interpretation of the XR/ CT is suggestive of osteomyelitis. -Cultures: Preliminary culture showed growth of staph RES and staph epidermidis. -Dispo: patient is okay to discharge. Will see the patient back in office in the next 2 to 3 weeks for suture removal and follow-up surgical incision check. Patient will likely need to be discharged on outpatient oral antibiotics, likely clindamycin. Answered questions and rediscussed plan at length with the patient and family if present. Discussed plan with other teams' providers. We discussed with the patient the pathology, etiology, pathogenesis, current condition management plan and disposition. This was discussed at various times during the day with representatives from nursing, pharmacy, case management, social work, and therapies as needed. We discussed with the patient he etiology of problems listed in the Assessment and Plan section, as well as risk factors, natural course, prognosis, treatment options with associated risks and benefits. Importance of compliance with the treatment plan was emphasized. I explained test results to date, as well as additional diagnostic recommendations. I explained discharge plans, including the required post-hospitalization care, treatment, and services. All questions were answered and ample time was provided. Avila Rajan PA-C, Foot and Ankle Surgery 04/04/2024 PAST MEDICAL HISTORY: Past Medical History: Diagnosis Date Anxiety Bipolar 1 disorder (HCC) Chronic back pain Chronic kidney disease, stage 3 unspecified (HCC) Coronary artery disease Depression Diabetes mellitus (HCC) Hypertension MRSA (methicillin resistant Staphylococcus aureus) Pacemaker Seizures (HCC) Stroke (HCC) MEDICATIONS: Current Facility-Administered Medications Medication Dose Route Frequency Provider Last Rate Last Admin albuterol (PROVENTIL) 2.5 mg /3 mL (0.083 %) nebulizer solution 2.5 mg 2.5 mg Nebulization Q6H PRN Juwan Smith MD atorvastatin (LIPITOR) tablet 40 mg 40 mg Oral Nightly Juwan Smith MD 40 mg at 04/03/242122 busPIRone (BUSPAR) tablet 30 mg 30 mg Oral BID Juwan Smith MD 30 mg at 04/04/24 08 cefadroxil (DURICEF) capsule 500 mg 500 mg Oral Q12H Estrella Gonzales, [employer] SALESPERSON 500 mg at 04/03/242124 citalopram (CELEXA) tablet 40 mg 40 mg Oral Daily Juwan Smith MD 40 mg at 04/04/24 0857 enoxaparin (LOVENOX) syringe 40 mg 40 mg Subcutaneous BID Lowell Roberts [facility],PharmD 40 mg at 04/04/24 0856 hydrALAZINE (APRESOLINE) injection 10 mg 10 mg Intravenous Q6H PRN Leticia Rajput MD insulin glargine (LANTUS) injection 35 Units 35 Units Subcutaneous Nightly Leticia Rajput MD 35 Units at 04/03/24 2125 insulin lispro (AdmeLOG,HumaLOG) injection 0-15 Units 0-15 Units Subcutaneous at bedtime Merrick Almanza MD 8 Units at 04/02/24 2100 insulin lispro (AdmeLOG,HumaLOG) injection 0-30 Units 0-30 Units Subcutaneous TID AC Merrick Almanza MD 12 Units at 04/04/24 0858 lamoTRIgine (LAMICTAL) tablet 25 mg 25 mg Oral BID Juwan Smith MD 25 mg at 04/04/24 0857 levothyroxine (SYNTHROID, LEVOTHROID) tablet 75 mcg 75 mcg Oral Daily Juwan Smith MD 75 mcg at 04/04/24 0637 metoprolol tartrate (LOPRESSOR) tablet 25 mg 25 mg Oral BID Leticia Rajput MD 25 mg at 04/04/24 0857 naloxone (NARCAN) injection 0.1 mg 0.1 mg Intravenous PRN Floyd Rubin RP,PharmD 0.1 mg at 03/28/24 0520 And naloxone (NARCAN) injection 0.4 mg 0.4 mg Intravenous PRN Floyd Rubin [facility],PharmD 0.4 mg at 03/26/24 2300 nicotine (NICODERM CQ) 14 mg/24 hr 1 patch 1 patch Transdermal Daily Maya Franklin PA-C 1 patch at 04/02/24 0904 nortriptyline (PAMELOR) capsule 25 mg 25 mg Oral Nightly Juwan Smith MD 25 mg at 04/03/242124 ondansetron (ZOFRAN) injection 4 mg 4 mg Intravenous Q6H PRN Jennifer Lopez CNP 4 mg at 03/30/24 1508 oxyCODONE-acetaminophen (PERCOCET) 5-325 mg per tablet 1 tablet 1 tablet Oral Q4H PRN Juwan Smith MD 1 tablet at 04/04/24 0857 pantoprazole (PROTONIX) EC tablet 40 mg 40 mg Oral QAM AC Juwan Smith MD 40 mg at 04/04/24 0857 pregabalin (LYRICA) capsule 75 mg 75 mg Oral BID Juwan Smith MD 75 mg at 04/04/24 0857 QUEtiapine (SEROQUEL) tablet 800 mg 800 mg Oral Nightly Juwan Smith MD 800 mg at 04/03/24 2125 sodium chloride (PF) (NS) flush 5 mL 5 mL Intravenous PRN Ani Gonzales CNP And sodium chloride 0.9% (NS) 0-150 mL/hr Intravenous PRN Ani Gonzales CNP Stopped at 03/25/24 0831 sodium chloride (PF) (NS) flush 5 mL 5 mL Intravenous PRN Juwan Smith MD 5 mL at 04/04/24 0859 And sodium chloride (PF) (NS) flush 5 mL 5 mL Intravenous Q8H SAMEER Juwan Smith MD 5 mL at 04/03/24 2126 And sodium chloride 0.9% (NS) 0-150 mL/hr Intravenous PRN Juwan Smith MD timolol (TIMOPTIC) 0.5 % ophthalmic solution 1 drop 1 drop Left Eye Daily Juwan Smith MD 1 drop at 04/04/24 0858 tiZANidine (ZANAFLEX) tablet 4 mg 4 mg Oral Nightly Juwan Smith MD 4 mg at 04/03/242123 traZODone (DESYREL) tablet 50 mg 50 mg Oral Nightly PRN Juwan Smith MD 50 mg at 04/03/24 2137 Medications Prior to Admission Medication Sig Dispense Refill Last Dose/Taking albuterol (PROVENTIL) 2.5 mg /3 mL (0.083 %) nebulizer solution Take 3 mL (2.5 mg total) by nebulization every 6 (six) hours as needed for wheezing or shortness of breath . 75 mL 3 Taking As Needed albuterol 90 mcg/actuation inhaler Inhale 1 (one) puff every 4 to 6 hours as needed for shortness of breath or wheezing . 18 g 3 Taking As Needed atorvastatin (LIPITOR) 40 MG tablet Take 1 (one) tablet (40 mg total) by mouth nightly . 90 tablet 0 Taking busPIRone (BUSPAR) 30 MG tablet Take 1 (one) tablet (30 mg total) by mouth 2 (two) times a day . Taking chlorthalidone (HYGROTON) 25 MG tablet Take 1 (one) tablet (25 mg total) by mouth daily . 90 tablet 1 Taking citalopram (CELEXA) 40 MG tablet Take 1 (one) tablet (40 mg total) by mouth daily . 90 tablet 1 Taking insulin lispro (AdmeLOG,HumaLOG) 100 unit/mL injection Inject up to 150 units once daily via pump . 50 mL 5 Taking INSULIN PUMP CARTRIDGE SUBQ Inject under the skin Use as directed . Taking lamoTRIgine (LAMICTAL) 25 MG tablet Take 1 (one) tablet (25 mg total) by mouth 2 (two) times a day . 60 tablet 2 Taking levETIRAcetam (KEPPRA) 1000 MG tablet Take 1 (one) tablet (1,000 mg total) by mouth 2 (two) times a day . 180 tablet 1 Taking levothyroxine (SYNTHROID, LEVOTHROID) 75 MCG tablet Take 1 (one) tablet (75 mcg total) by mouth once daily . 90 tablet 0 Taking lidocaine (LMX) 4 % cream Apply topically 3 (three) times a day . 90 g 3 Taking lisinopriL (PRINIVIL,ZESTRIL) 40 MG tablet Take 1 (one) tablet (40 mg total) by mouth daily . 90 tablet 1 Taking loratadine (CLARITIN) 10 mg tablet Take 1 (one) tablet (10 mg total) by mouth daily . 90 tablet 1 Taking metFORMIN (GLUCOPHAGE) 1000 MG tablet Take 1 (one) tablet (1,000 mg total) by mouth 2 (two) times a day . 60 tablet 5 Taking metoprolol succinate (TOPROL-XL) 50 MG 24 hr tablet Take 1 (one) tablet (50 mg total) by mouth daily . 90 tablet 1 Taking nortriptyline (PAMELOR) 25 MG capsule Take 1 (one) capsule (25 mg total) by mouth nightly . 90 capsule 1 Taking nystatin (MYCOSTATIN) powder Apply topically 2 (two) times a day . 30 g 1 Taking omeprazole (PRILOSEC) 40 MG capsule Take 1 (one) capsule (40 mg total) by mouth 2 (two) times a day . Taking oxyCODONE-acetaminophen (PERCOCET) 5-325 mg per tablet Take 1 (one) tablet by mouth nightly as needed for pain (Days supply per fill: 30) . 30 tablet 0 Taking As Needed pantoprazole (PROTONIX) 40 MG tablet Take 1 (one) tablet (40 mg total) by mouth daily . 90 tablet 1 Taking pregabalin (LYRICA) 75 MG capsule Take 1 (one) capsule (75 mg total) by mouth 2 (two) times a day (Days supply per fill: 30) . 60 capsule 0 Taking vitamin with Ca-Iron-FA 27-1 mg Tab Take 1 (one) tablet by mouth daily . Taking QUEtiapine (SEROQUEL) 400 MG tablet Take 2 (two) tablets (800 mg total) by mouth nightly . 60 tablet 2 Taking timolol (TIMOPTIC) 0.5 % ophthalmic solution Administer 1 (one) drop into the left eye daily . Taking tiZANidine (Zanaflex) 4 MG tablet Take 2 tabs p.o. nightly . 60 tablet 0 Taking traZODone (DESYREL) 50 MG tablet Take 1 (one) tablet (50 mg total) by mouth nightly as needed . 90 tablet 0 Taking As Needed alcohol swabs PadM Apply 1 (one) Swab. topically 5 (five) times a day Clean area before administering insulin. . 150 each 5 blood sugar diagnostic (glucose blood) strips by Miscellaneous route 3 (three) times a day As a backup to CGM to test blood sugar. One Touch Verio . 100 strip 5 Dexcom G6 Vibrator Operator [facility] Use as directed for continuous glucose monitoring . 1 each 0 Dexcom G6 Sensor Simran Use as directed for continuous glucose monitoring change every 10 days . 3 each 11 Dexcom G6 Transmitter Simran Use as directed for continuous glucose monitoring change every 3 months . 1 each 3 ergocalciferol (Vitamin D2) 1,250 mcg (50,000 unit) capsule Take 1 (one) capsule (50,000 Units total) by mouth once a week . 12 capsule 1 glucagon (Gvoke HypoPen 2-Pack) 1 mg/0.2 mL AtIn Inject 0.2 mL (1 mg total) under the skin as needed . 2 mL 1 inhalational spacing device inhaler Use as instructed . 1 each 2 lancets Misc 1 Lancet by Miscellaneous route 3 (three) times a day . 100 each 5 lidocaine-prilocaine (EMLA) cream Apply topically as needed . 30 g 1 loperamide (IMODIUM) 2 mg capsule Take 1 (one) capsule (2 mg total) by mouth as needed for diarrhea (Max dose 7 pills) . 20 capsule 1 miscellaneous medical supply Misc 1 each by Miscellaneous route daily . 100 each 2 Omnipod 5 G6 Pods, Gen 5, Crtg Omnipod Insulin Refill Crtg ondansetron (ZOFRAN-ODT) 4 MG disintegrating tablet Dissolve 1 (one) tablet (4 mg total) on top of tongue every 8 (eight) hours as needed for nausea . 20 tablet 1 ROS: Negative except for HPI above Physical Exam: Patient Vitals for the past 24 hrs: BP Temp Temp src Pulse Resp SpO2 04/04/24 0857 -- -- -- -- 16 -- 04/04/24 0758 (!) 143/83 97.7 F (36.5 C) Oral 66 18 (!) 89 % 04/04/24 0422 -- -- -- -- 16 -- 04/04/24 0350 124/72 98.3 F (36.8 C) Oral 61 12 92 % 04/04/24 0111 -- -- -- 64 -- 97 % 04/03/24 2137 -- -- -- -- 16 -- 04/03/24 1926 124/63 97.5 F (36.4 C) Oral 77 12 92 % 04/03/24 1757 -- -- -- -- 16 -- 04/03/24 1534 (!) 159/91 -- -- 61 18 95 % 04/03/24 1244 -- -- -- -- 16 -- Pain Score: Temp (24hrs), Av.8 F (36.6 C), Min:97.5 F (36.4 C), Max:98.3 F (36.8 C) Labs: Results from last 7 days Lab Units 04/04/24 0435 04/03/24 0440 04/02/24 0438 GLUCOSE mg/dL 245* 206* 233* BUN mg/dL 20 19 14 CREATININE mg/dL 1.34* 1.65* 1.63* POTASSIUM mmol/L 4.0 3.7 3.7 SODIUM mmol/L 141 141 143 CHLORIDE mmol/L 105 106 107 CALCIUM mg/dL 8.4 8.2* 8.3* PHOSPHORUS mg/dL 3.8 4.4 3.8 Lab Results Component Value Date WBC 7.11 04/04/2024 HGB 8.9 (L) 04/04/2024 HCT 26.7 (L) 04/04/2024 MCV 93.4 04/04/2024 PLT 256 04/04/2024 Lab Results Component Value Date CREATININE 1.34 (H) 04/04/2024 BUN 20 04/04/2024 NA 141 04/04/2024 K 4.0 04/04/2024 CL 105 04/04/2024 Lab Results Component Value Date PTT 34 06/03/2023 INR 1.0 06/03/2023 Lab Results Component Value Date HGBA1C 9.3 (H) 01/12/2024 Lab Results Component Value Date SEDRATE 62 (H) 03/24/2024 Lab Results Component Value Date CRP 15.1 (H) 03/24/2024 Order Name Source Comment Collection Info Order Time SURGICAL SITE AEROBIC CULTURE Toe, Left Collected By: Shameka Castillo DPM 04/01/2024 5:12 PM Release to patient Immediate BONE AEROBIC & ANAEROBIC CULTURE Toe, Left Collected By: Shameka Castillo DPM 04/01/2024 5:12 PM Release to patient Immediate TISSUE EXAM Amputation, Toe, Left Collected By: Shameka Castillo DPM 04/01/2024 5:11 PM Release to patient Immediate Imaging: ECG 12- Lead Result Date: 03/25/2024 Sinus tachycardia Possible Anterior infarct , age undetermined Abnormal ECG Confirmed by Inessa Rao MD ([id number]) on 03/25/2024 8:01:09 AM XR Toe(s) Left 2+ Views Result Date: 03/24/2024 EXAMINATION: XR TOE(S) LEFT 2+ VIEWS EXAM DATE: 03/24/2024 7:57 pm HISTORY: ORDERING SYSTEM PROVIDED HISTORY: pain/infection, TECHNOLOGIST PROVIDED HISTORY: Illness/Other Reason for exam: pain/reoccurring infection Cancer History: u Surgery, RadiationHistory: pacemaker Encounter Type: Initial Additional signs and symptoms: pain/infection ORDERING SYSTEM PROVIDED DIAGNOSIS CODES: COMPARISON: 04/28/2023 TECHNIQUE: AP, lateral and oblique views left toes FINDINGS: New erosive changes of the tip of the tuft of the 1st distal phalanx with overlying soft tissue wound. Soft tissue swelling of the 1st digit. No arthritic changes. Findings suggest osteomyelitis of the tip of the tuft of the 1st distal phalanx. Workstation ID: [id number] The total time spent for this visit was greater than 35 minutes. Greater than 50% of the time was spent in counseling and coordination of care and direct patient management. Cosigned by Floyd Castillo DPM at 04/04/2024 6:08 PM EST Associated attestation - Floyd Castillo DPM - 04/04/2024 6:08 PM EST I have reviewed and agree with the assessment and plan as documented. [facility] [place] PROGRESS NOTE Assessment and Plan Addie Jean Baptiste is a 48 y.o. female patient of Stephany Pelayo PA-C with history of T2DM, HTN, bipolar disorder, and chronic back pain presented to [facility] on 03/25/2024 with left toe wound. Sepsis due to Left diabetic toe osteomyelitis s/p amputation 04/01 Hypotension hypovolemic vs iatrogenic from oversedation Acute metabolic encephalopathy-resolved Admitted with worsening left foot big toe pain and swelling. Transferred to ICU 03/26 due to hypotension and lethargy, now back to baseline, out of icu Noted BP 67/53 initially- Received 1.5L total IVF and Narcan with improvement in BP Afebrile; normal WBC on admission. CRP 15.1. Lactic acid elevation due to hypotension, now resolved Wound culture 03/25 with MSSA Xray L foot: Findings suggestive of first distal phalanx osteomyelitis Zosyn, changed to cefazolin on 03/30 ID consulted, recommendation for cefadroxil p.o. 500 mg twice daily until 04/08 Podiatry following, status post amputation left hallux IPJ level on 04/11/2024 Wound cultures from margin sent, NGT Heel weightbearing of the left leg for the next 2 weeks Pain control with Percocet If culture remaisn negative pt may be discharged in am SOLO on chronic kidney disease stage III Possible component of ATN Hyperkalemia- resolved Hypokalemia Cr peaked around 2.5, improved down to 1.22, mild increased, remains stable ~1.6. Baseline creatinine 1.3-1.5. Chronic kidney disease due to diabetic nephropathy. Lokelma ordered by nephrology 03/28 Later hypokalemia resolved Nephrology consulted, continue to hold SHAJI diuretics and metformin. Signed off 04/01 Avoid nephrotoxins P.o. hydration protocol ordered UTI UA with pyuria Urine culture with 50-100 K colonies of E. Coli Zosyn changed to cefazolin-to p.o.cefadroxil T2DM on insulin pump Diabetic peripheral neuropathy Last A1c 9.9 % in 03/22/2024 Home insulin regimen: insulin pump Pump with no insulin, started on Lantus, increase dos eot 35U qHs Diabetic diet Consulted conservation educator: Resume insulin pump at discharge, verified insulin available Hypertension Hyperlipidemia Continue to hold SHAJI inhibitor, restart metoprolol and hydralazine PRN Continue Lipitor SBP 106 Sick sinus syndrome PPM implantation in 2011. In 2016 underwent MRI compatible PPM placement at [facility]. Bipolar disorder Home meds including Celexa, BuSpar, Seroquel and Pamelor continued Seizure disorder Continue home lamictal Obesity Body mass index 47 Discussed dietary and lifestyle modifications Resolved acute medical issues Discharge Planning Medically Stable for Discharge Date: 04/04 Patient requires continued hospitalization due to: Interactive Art Director request Discharge Location:home Quality Measures DVT Prophylaxis: lovenox Chow Catheter: absent Code Status Full Primary Contact Information Subjective Patient seen and examined this morning. Feeling well, eating, reports having 2 loose bowel movements yesterday Objective BP 90/60 (BP Location: Left arm, Patient Position: Lying) Pulse 73 Temp 97.9 F (36.6 C) (Oral) Resp 16 Ht 5' 2 Wt 123.6 kg (272 lb 7.8 oz) SpO2 96% BMI 49.84 kg/m Physical Examination General Appearance: alert; well appearing; in no acute distress HEENT: Head- normocephalic; Eyes- normal external eye, hearing intact Cardiovascular: regular rate and rhythm; peripheral edema absent Respiratory: lungs clear to auscultation; without wheezes, rales or rhonchi; on room air Abdomen: soft, non-tender, non-distended Neurological: oriented x 3; normal speech; no focal findings or movement disorder noted Musculoskeletal: no significant deformity or tenderness to palpation. Left foot with bandage Skin: normal coloration Psych: normal mood and affect [facility] [place] PROGRESS NOTE Assessment and Plan Addie Jean Baptiste is a 48 y.o. female patient of Stephany Pelayo PA-C with history of T2DM, HTN, bipolar disorder, and chronic back pain presented to [facility] on 03/25/2024 with left toe wound. Sepsis due to Left diabetic toe osteomyelitis Hypotension hypovolemic vs iatrogenic from oversedation Acute metabolic encephalopathy-resolved Admitted with worsening left foot big toe pain and swelling. Transferred to ICU 03/26 due to hypotension and lethargy, now back to baseline, out of icu Noted BP 67/53 initially- Received 1.5L total IVF and Narcan with improvement in BP Afebrile; normal WBC on admission CRP 15.1. Lactic acid elevation due to hypotension, now resolved Wound culture with MSSA Xray L foot: Findings suggestive of first distal phalanx osteomyelitis Zosyn, changed to cefazolin on 03/30 ID consulted, recommendation for cefadroxil p.o. 500 mg twice daily until 04/08 Podiatry following, status post amputation left hallux IPJ level on 04/11/2024 Wound cultures from margin sent, awaiting results for discharge Heel weightbearing of the left leg for the next 2 weeks Pain control with Percocet SOLO on chronic kidney disease stage III Possible component of ATN Hyperkalemia- resolved Hypokalemia Cr peaked around 2.5, improved down to 1.22, mild increased today at 1.6. Baseline creatinine 1.3-1.5. Chronic kidney disease due to diabetic nephropathy. Lokelma ordered by nephrology 03/28 Later hypokalemia resolved Nephrology consulted, continue to hold SHAJI diuretics and metformin. Signed off 04/01 Avoid nephrotoxins P.o. hydration protocol ordered If worsening tomorrow will reconsult nephrology UTI UA with pyuria Urine culture with 50-100 K colonies of E. Coli Zosyn changed to cefazolin-to p.o.cefadroxil T2DM on insulin pump Diabetic peripheral neuropathy Last A1c 9.9 % in 03/22/2024 Home insulin regimen: insulin pump Pump with no insulin, started on Lantus 30 units at night Blood sugar improving Diabetic diet Consult conservation educator: Hypertension Hyperlipidemia Continue to hold SHAJI inhibitor, restart metoprolol and hydralazine PRN Continue Lipitor SBP 106 Sick sinus syndrome PPM implantation in 2011. In 2016 underwent MRI compatible PPM placement at [facility]. Bipolar disorder Home meds including Celexa, BuSpar, Seroquel and Pamelor continued Seizure disorder Continue home lamictal Obesity Body mass index 47 Discussed dietary and lifestyle modifications Resolved acute medical issues Discharge Planning Medically Stable for Discharge Date: 04/04 Patient requires continued hospitalization due to: Interactive Art Director request Discharge Location:home Quality Measures DVT Prophylaxis: lovenox Chow Catheter: absent Code Status Full Primary Contact Information Subjective Patient seen and examined this morning. States she feels tired and hard to take deep breath, no shortness of breath no respiratory distress. Patient advised to CTAB in bed as she is cramping on her neck Objective BP 135/84 (BP Location: Left arm, Patient Position: Lying) Pulse 68 Temp 97.7 F (36.5 C) (Oral) Resp 18 Ht 5' 2 Wt 123.6 kg (272 lb 7.8 oz) SpO2 99% BMI 49.84 kg/m Physical Examination General Appearance: alert; well appearing; in no acute distress HEENT: Head- normocephalic; Eyes- normal external eye, hearing intact Cardiovascular: regular rate and rhythm; peripheral edema absent Respiratory: lungs clear to auscultation; without wheezes, rales or rhonchi; on room air Abdomen: soft, non-tender, non-distended Neurological: oriented x 3; normal speech; no focal findings or movement disorder noted Musculoskeletal: no significant deformity or tenderness to palpation. Left foot with bandage Skin: normal coloration Psych: normal mood and affect [facility] PROGRESS NOTE ASSESSMENT AND PLAN: Diabetes T2 with neuropathy 2. Hyperglycemia 3. CKD Stage III 4. H/o Seizures 5. 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 Amputation left hallux IPJ level for osteomyelitis date of surgery 04/01/2024 Plan- The patient was seen and evaluated and discussed findings with patient. This is a type II diabetic female with neuropathy history of chronic kidney disease chronic ulceration has been present for months of the left hallux distal tuft. She has tried and failed multiple oral antibiotic options. Ancillary imaging and clinical correlation is suggestive of osteomyelitis. POD#0: Amputation left hallux IPJ level DOS: 04/01/2024 Dressing to remain clean dry and intact. The patient will have a Betadine wet-to-dry dressing change daily by nursing starting 04/02/2024. Patient is to be heel weightbearing left lower extremity for the next 2 weeks. She will need a postoperative shoe. Cultures obtained during surgery of both the distal phalanx bone, pathology, a marginal culture. -- OR Plans: none - ABX: Per ID surgical culture obtained today margin should be clear - DSG: betadine wet to dry daily. - WBS: Heel weightbearing left foot - XR/CT reviewed -clinical interpretation with my personal interpretation of the XR/ CT is suggestive of osteomyelitis. I will reassess the patient on Thursday. She will need to receive IV antibiotics through the weekend and then would likely be able to discharge to home once we have culture and sensitivities from the surgical cultures obtained today. Answered questions and rediscussed plan at length with the patient and family if present. Discussed plan with other teams' providers. We discussed with the patient the pathology, etiology, pathogenesis, current condition management plan and disposition. This was discussed at various times during the day with representatives from nursing, pharmacy, case management, social work, and therapies as needed. We discussed with the patient he etiology of problems listed in the Assessment and Plan section, as well as risk factors, natural course, prognosis, treatment options with associated risks and benefits. Importance of compliance with the treatment plan was emphasized. I explained test results to date, as well as additional diagnostic recommendations. I explained discharge plans, including the required post-hospitalization care, treatment, and services. All questions were answered and ample time was provided. PATIENT VOICES NO COMPLAINTS, AFEBRILE, PAIN IS SAME LABS: Results from last 7 days Lab Units 04/01/24 0529 03/31/24 0616 03/30/24 0549 SODIUM mmol/L 143 143 139 POTASSIUM mmol/L 3.5 3.4* 4.1 CHLORIDE mmol/L 108 109* 108 BUN mg/dL 14 20 29* CREATININE mg/dL 1.28* 1.22* 1.67* GLUCOSE mg/dL 162* 139* 301* CALCIUM mg/dL 8.6 8.9 9.1 Results from last 7 days Lab Units 04/01/24 0529 03/31/24 0616 03/30/24 0549 WBC K/mcL 6.99 6.83 6.90 HGB g/dL 9.2* 9.1* 9.4* HCT % 27.2* 26.9* 29.7* PLT K/mcL 252 266 263 Results from last 7 days Lab Units 03/27/24 0434 ALK PHOS U/L 91 BILIRUBIN TOTAL mg/dL 0.3 TOTAL PROTEIN g/dL 5.9* ALT U/L 11 AST U/L 11 NEPHROLOGY PROGRESS [facility] Patient Name: Addie Jean Baptiste Admit Date: [id number] MR #: [id number] : 1975 Perpetual Assessment: Addie Jean Baptiste is a 48 y.o. female on hospital day 7 admitted for left toe pain and drainage We are asked to evaluate and manage SOLO on CKD . Impression and Plan: SOLO - due to volume mediated changes with component of ATN from hypotension and sepsis. Cr continue to show improvement. IVF has been heplock. UA and Ucx grew E. Coli - cont on zosyn. Kidney ultrasound did not show any hydronephrosis. . Continue to avoid nephrotoxic agents CKD stage 3 - baseline cr in the 1.3-1.5 range. 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 Agree with holding ACEI, diuretics, and metformin due to SOLO. Left toe osteomyelitis - Xray does show osteomyelitis. Wound cx grew MSSA. Plan per podiatry HTN - holding BP medications due to hypotension DM - insulin pump on hold. SSI Hypokalemia - will supplement as needed Will sign off. Call us back if needed. Will make f/u appointment on @ 11:30. Subjective: Denies any new complaint Review of Systems: ROS otherwise reviewed and negative Physical Examination: Vitals: Vitals: 04/01/24 0834 04/01/24 1141 04/01/24 1216 04/01/24 1248 BP: (!) 193/130 (!) 165/95 BP Location: Left arm Patient Position: Lying Pulse: 83 84 Resp: 16 18 16 Temp: TempSrc: SpO2: 96% Weight: Height: Intake/Output last 3 shifts: Intake/Output Summary (Last 24 hours) at 04/01/2024 1351 Last data filed at 03/31/2024 1700 Gross per 24 hour Intake 0 ml Output -- Net 0 ml I/O last 3 completed shifts: In: 440 [P.O.:390; IV Piggyback:50] Out: - General: No acute distress HEENT: Anicteric Neck: Supple CV: Regular rate, no murmurs or rubs. trace lower extremity edema Lungs: CTA B Abd: Soft, nontender, bowel sounds present Extr: good LE perfusion, no cyanosis Results/Medications Reviewed 04/01/24 1:51 PM: Laboratory, Microbiology, Pathology, Radiology, Cardiology, Medications and Transcriptions reviewed Scheduled Meds: atorvastatin 40 mg Oral Nightly busPIRone 30 mg Oral BID cefadroxil 500 mg Oral Q12H SAMEER citalopram 40 mg Oral Daily enoxaparin (LOVENOX) injection 40 mg Subcutaneous BID insulin glargine 30 Units Subcutaneous Nightly lispro insulin 0-15 Units Subcutaneous at bedtime insulin lispro 0-30 Units Subcutaneous TID AC lamoTRIgine 25 mg Oral BID levothyroxine 75 mcg Oral Daily metoprolol tartrate 25 mg Oral BID nicotine 1 patch Transdermal Daily nortriptyline 25 mg Oral Nightly pantoprazole 40 mg Oral QAM AC pregabalin 75 mg Oral BID QUEtiapine 800 mg Oral Nightly sodium chloride (PF) 5 mL Intravenous Q8H SAMEER timolol 1 drop Left Eye Daily tiZANidine 4 mg Oral Nightly Continuous Infusions: Results from last 7 days Lab Units 04/01/24 0529 03/31/24 0616 03/30/24 0549 WBC K/mcL 6.99 6.83 6.90 HGB g/dL 9.2* 9.1* 9.4* HCT % 27.2* 26.9* 29.7* PLT K/mcL 252 266 263 Results from last 7 days Lab Units 04/01/24 0529 03/31/24 0616 03/30/24 0549 SODIUM mmol/L 143 143 139 POTASSIUM mmol/L 3.5 3.4* 4.1 CHLORIDE mmol/L 108 109* 108 BICARB mmol/L 27 28 24 BUN mg/dL 14 20 29* CREATININE mg/dL 1.28* 1.22* 1.67* EGFR mL/min/1.73 m2 52* 56* 38* GLUCOSE mg/dL 162* 139* 301* CALCIUM mg/dL 8.6 8.9 9.1 PHOSPHORUS mg/dL 2.8 2.7 3.0 Urinalysis [facility] [place] PROGRESS NOTE Assessment and Plan Addie Jean Baptiste is a 48 y.o. female patient of Stephany Pelayo PA-C with history of T2DM, HTN, bipolar disorder, and chronic back pain presented to [facility] on 03/25/2024 with left toe wound. Sepsis due to Left diabetic toe osteomyelitis Hypotension hypovolemic vs iatrogenic from oversedation Acute metabolic encephalopathy-resolved Admitted with worsening left foot big toe pain and swelling. Transferred to ICU 03/26 due to hypotension and lethargy, now back to baseline, out of icu Noted BP 67/53 initially- Received 1.5L total IVF and Narcan with improvement in BP Afebrile; normal WBC on admission CRP 15.1. Lactic acid elevation due to hypotension, now resolved Wound culture with MSSA Xray L foot: Findings suggestive of first distal phalanx osteomyelitis Zosyn, changed to cefazolin on 03/30 ID consulted, recommendation for cefadroxil p.o. 500 mg twice daily until 04/08 Podiatry following, now plan for partial amputation tonight Pain control with Percocet Right flank pain Reports acute onset on 03/31, now resolved CT abdomen ordered, no significant acute abnormalities Continues bowel regimen SOLO on chronic kidney disease stage III Possible component of ATN Hyperkalemia- resolved Hypokalemia Cr peaked and remained around 2.5, now improving down to 1.22 Baseline creatinine 1.3-1.5. Chronic kidney disease due to diabetic nephropathy. Lokelma ordered by nephrology 03/28 Later hypokalemia resolved Nephrology following, continue to hold SHAJI diuretics and metformin Avoid nephrotoxins Cont PO hydration UTI UA with pyuria Urine culture with 50-100 K colonies of E. Coli Zosyn changed to cefazolin-to p.o. at discharge of cefadroxil T2DM on insulin pump Diabetic peripheral neuropathy Last A1c 9.9 % in 03/22/2024 Home insulin regimen: insulin pump Pump with no insulin, started on Lantus 30 units at night Blood sugar improving Diabetic diet Consult conservation educator: Hypertension Hyperlipidemia Continue to hold SHAJI inhibitor, restart metoprolol and hydralazine PRN Continue Lipitor SBP 106 Sick sinus syndrome PPM implantation in 2011. In 2016 underwent MRI compatible PPM placement at [facility]. Bipolar disorder Home meds including Celexa, BuSpar, Seroquel and Pamelor continued Seizure disorder Continue home lamictal Obesity Body mass index 47 Discussed dietary and lifestyle modifications Resolved acute medical issues Discharge Planning Medically Stable for Discharge Date: 04/01 Patient requires continued hospitalization due to: above Discharge Location:home Quality Measures DVT Prophylaxis: lovenox Chow Catheter: absent Code Status Full Primary Contact Information Subjective Patient seen and examined this morning. Back pain improved. Patient states she is requested amputation per nitrate operator Objective BP 138/82 (BP Location: Left arm, Patient Position: Lying) Pulse 78 Temp 98.2 F (36.8 C) (Oral) Resp 16 Ht 5' 2 Wt 123.6 kg (272 lb 7.8 oz) SpO2 94% BMI 49.84 kg/m Physical Examination General Appearance: alert; well appearing; in no acute distress HEENT: Head- normocephalic; Eyes- normal external eye, hearing intact Cardiovascular: regular rate and rhythm; peripheral edema absent Respiratory: lungs clear to auscultation; without wheezes, rales or rhonchi; on room air Abdomen: soft, non-tender, non-distended Neurological: oriented x 3; normal speech; no focal findings or movement disorder noted Musculoskeletal: no significant deformity or tenderness to palpation. Left foot with covered ulcers Skin: normal coloration Psych: normal mood and affect Nutrition Care Initial Assessment Reason for visit: Dietitian Screen: Length of Stay Nutrition Diagnosis: No Nutrition Diagnosis at this time Nutrition Intervention: Continue Meals and Snacks Diet:Continue Diabetic; Consistent Carbohydrate 60g/meal Cardiac Nutrition Goals: Pt is not at acute nutrition risk Start Date:03/31/2024 Expected End Date:04/07/2024 Nutrition Education: No needs at this time Assessment: Pertinent clinical information: 48 yo female, admitted with left toe wound with sepsis - podiatry is consulted . Pt has acute metabolic encephalopathy which is resolved CKD stage 3, UTI , 03/31/24 pt has developed right flank pain T2DM Ha1c: 9.9% on 03/22/24 Glucose last 24 hours 250, 102, 183 Hx: CKD, HTN, CAD , Past Medical History: Diagnosis Date Anxiety Bipolar 1 disorder (HCC) Chronic back pain Chronic kidney disease, stage 3 unspecified (HCC) Coronary artery disease Depression Diabetes mellitus (HCC) Hypertension MRSA (methicillin resistant Staphylococcus aureus) Pacemaker Seizures (HCC) Stroke (HCC) Past Surgical History: Procedure Laterality Date CHOLECYSTECTOMY FOOT SURGERY HYSTERECTOMY ORTHOPEDIC SURGERY left foot surgery PACEMAKER INSERTION Height: 5' 2 Current weight: 123.6 kg (272 lb 7.8 oz) BMI Body mass index is 49.84 kg/m . Weight hx: CW 123.6 kg 6.9 kg or 5.3% in 3 months which is not significant which has lowered BMI Wt Readings from Last 10 Encounters: 03/30/24 123.6 kg (272 lb 7.8 oz) 02/02/24 127 kg (280 lb) 01/27/24 126.6 kg (279 lb) 01/18/24 130.5 kg (287 lb 11.2 oz) 01/09/24 113.4 kg (250 lb) 12/08/23 117.9 kg (260 lb) 12/07/23 117.9 kg (260 lb) 12/02/23 123.8 kg (273 lb) 11/09/23 115.7 kg (255 lb) 11/07/23 115.7 kg (255 lb) Significant Weight Change: No Current diet order: Diet: Diabetic; Consistent Carbohydrate 60g/meal Cardiac Recent intake: 75-100% over last week until last day when pain has increased Current intake likely meets estimated needs. Barriers to adequate p.o. intakes: pain Nutrition Related Allergies/Intolerances: latex Cultural or Presybeterian Dietary Needs :No Cultural or Presybeterian Dietary needs noted Patient/family comments:Deferred: Pt sleeping Difficulty Chewing or Swallowing: No issues noted Fluid Status: Generalized edema noted Skin Integrity: Surgical Incision(s) and toe wound GI Function: LBM: 03/30/24, Diarrhea Physical Appearance: Deferred: Pt sleeping Labs: Recent Labs 03/31/24 0616 NA 143 K 3.4* BICARB 28 CL 109* GLUCOSE 139* BUN 20 CREATININE 1.22* PHOS 2.7 ALBUMIN 3.1* B12 Date Value Ref Range Status 02/11/2024 203 (L) 232 - 1,245 pg/mL Final Folate Date Value Ref Range Status 02/11/2024 9.1 3.1 - 17.5 ng/mL Final Comment: Deficient <2.2 Borderline 2.2 - 3.0 Excessive >17.5 Recent Labs 03/29/24 0431 03/30/24 0549 03/31/24 0616 GLUCOSE 288* 301* 139* Lab Results Component Value Date HGBA1C 9.3 (H) 01/12/2024 Scheduled Meds: atorvastatin 40 mg Oral Nightly busPIRone 30 mg Oral BID cefadroxil 500 mg Oral Q12H SAMEER citalopram 40 mg Oral Daily enoxaparin (LOVENOX) injection 40 mg Subcutaneous BID insulin glargine 30 Units Subcutaneous Nightly lispro insulin 0-15 Units Subcutaneous at bedtime insulin lispro 0-30 Units Subcutaneous TID AC lamoTRIgine 25 mg Oral BID levothyroxine 75 mcg Oral Daily nicotine 1 patch Transdermal Daily nortriptyline 25 mg Oral Nightly pantoprazole 40 mg Oral QAM AC pregabalin 75 mg Oral BID QUEtiapine 800 mg Oral Nightly sodium chloride (PF) 5 mL Intravenous Q8H SAMEER timolol 1 drop Left Eye Daily tiZANidine 4 mg Oral Nightly Continuous Infusions: Home Medication:Home Medications Reviewed: Yes, insulins, metformin , pantoprazole , synthroid, omeprazole , Nutrient Depleting Medications: Proton Pump Inhibitors (Chronic Use) [place] MS RD LD Office [phone] Images from the original note were not included. [facility]GR[facility] NOTE ASSESSMENT AND PLAN: Diabetes T2 with neuropathy 2. Hyperglycemia 3. CKD Stage III 4. H/o Seizures 5. 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 Patient discussed today after talking with her daughter stating they would like to consider amputation of her left hallux as it has been a chronic recurrent issue. Essentially she has had chronic recurrent issues with his left hallux IPJ/ chronic wound. X-ray findings show possible osteomyelitis. Clinically this does not look grossly infected she does not have a white count but could be chronic in nature. At this point I told the patient I am not convinced there is bone infection will need an MRI to assess this. She states she is okay staying getting this done. She has a pacemaker so this may take some time. Will order MRI and follow-up. -- OR Plans: none - ABX: Per ID - final aerobic and anaerobic culture Showed no growth after 5 days with a few white blood cells and no organisms seen. - DSG: betadine wet to dry daily. - WBS: even weightbearing right foot - XR reviewed - suspected OM left hallux distal tuft Answered questions and rediscussed plan at length with the patient and family if present. Discussed plan with other teams' providers. We discussed with the patient the pathology, etiology, pathogenesis, current condition management plan and disposition. This was discussed at various times during the day with representatives from nursing, pharmacy, case management, social work, and therapies as needed. We discussed with the patient he etiology of problems listed in the Assessment and Plan section, as well as risk factors, natural course, prognosis, treatment options with associated risks and benefits. Importance of compliance with the treatment plan was emphasized. I explained test results to date, as well as additional diagnostic recommendations. I explained discharge plans, including the required post-hospitalization care, treatment, and services. All questions were answered and ample time was provided. Floyd Castillo DPM, Foot and Ankle Surgery 03/31/2024 PAST MEDICAL HISTORY: Past Medical History: Diagnosis Date Anxiety Bipolar 1 disorder (HCC) Chronic back pain Chronic kidney disease, stage 3 unspecified (HCC) Coronary artery disease Depression Diabetes mellitus (HCC) Hypertension MRSA (methicillin resistant Staphylococcus aureus) Pacemaker Seizures (HCC) Stroke (HCC) MEDICATIONS: Current Facility-Administered Medications Medication Dose Route Frequency Provider Last Rate Last Admin albuterol (PROVENTIL) 2.5 mg /3 mL (0.083 %) nebulizer solution 2.5 mg 2.5 mg Nebulization Q6H PRN Juwan Smith MD atorvastatin (LIPITOR) tablet 40 mg 40 mg Oral Nightly Juwan Smith MD 40 mg at 03/30/242127 busPIRone (BUSPAR) tablet 30 mg 30 mg Oral BID Juwan Smith MD 30 mg at 03/31/24901 cefadroxil (DURICEF) capsule 500 mg 500 mg Oral Q12H [facility] Estrella Anthony, BEATRIZ 500 mg at 03/31/24902 citalopram (CELEXA) tablet 40 mg 40 mg Oral Daily Juwan Smith MD 40 mg at 03/31/24902 enoxaparin (LOVENOX) syringe 40 mg 40 mg Subcutaneous BID Lowell Roberts, Francesco,PharmD 40 mg at 03/31/24902 insulin glargine (LANTUS) injection 30 Units 30 Units Subcutaneous Nightly Leticia Rajput MD 30 Units at 03/30/24 2128 insulin lispro (AdmeLOG,HumaLOG) injection 0-15 Units 0-15 Units Subcutaneous at bedtime Merrick Almanza MD insulin lispro (AdmeLOG,HumaLOG) injection 0-30 Units 0-30 Units Subcutaneous TID Merrick Almanza MD 9 Units at 03/30/24 1130 lamoTRIgine (LAMICTAL) tablet 25 mg 25 mg Oral BID Juwan Smith MD 25 mg at 03/31/24 0903 levothyroxine (SYNTHROID, LEVOTHROID) tablet 75 mcg 75 mcg Oral Daily Juwan Smith MD 75 mcg at 03/31/24 0618 naloxone (NARCAN) injection 0.1 mg 0.1 mg Intravenous PRN Floyd Rubin [facility],PharmD 0.1 mg at 03/28/24 0520 And naloxone (NARCAN) injection 0.4 mg 0.4 mg Intravenous PRN Floyd Rubin [facility],PharmD 0.4 mg at 03/26/24 2300 nicotine (NICODERM CQ) 14 mg/24 hr 1 patch 1 patch Transdermal Daily Maya Franklin PA-C 1 patch at 03/31/24 0903 nortriptyline (PAMELOR) capsule 25 mg 25 mg Oral Nightly Juwan Smith MD 25 mg at 03/30/24 2128 ondansetron (ZOFRAN) injection 4 mg 4 mg Intravenous Q6H PRN Jennifer Lopez CNP 4 mg at 03/30/24 1508 oxyCODONE-acetaminophen (PERCOCET) 5-325 mg per tablet 1 tablet 1 tablet Oral Q4H PRN Juwan Smith MD 1 tablet at 03/31/24 1033 pantoprazole (PROTONIX) EC tablet 40 mg 40 mg Oral QAM Juwan Smith MD 40 mg at 03/31/24 0902 pregabalin (LYRICA) capsule 75 mg 75 mg Oral BID Juwan Smith MD 75 mg at 03/31/24 0902 QUEtiapine (SEROQUEL) tablet 800 mg 800 mg Oral Nightly Juwan Smith MD 800 mg at 03/30/248 sodium chloride (PF) (NS) flush 5 mL 5 mL Intravenous PRN Ani Gonzales CNP And sodium chloride 0.9% (NS) 0-150 mL/hr Intravenous PRN Ani Gonzales CNP Stopped at 03/25/24 0831 sodium chloride (PF) (NS) flush 5 mL 5 mL Intravenous PRN Juwan Smith MD And sodium chloride (PF) (NS) flush 5 mL 5 mL Intravenous Q8H SAMEER Juwan Smith MD 5 mL at 03/31/24 0618 And sodium chloride 0.9% (NS) 0-150 mL/hr Intravenous PRN Juwan Smith MD timolol (TIMOPTIC) 0.5 % ophthalmic solution 1 drop 1 drop Left Eye Daily Juwan Smith MD 1 drop at 03/31/24 0909 tiZANidine (ZANAFLEX) tablet 4 mg 4 mg Oral Nightly Juwan Smith MD 4 mg at 03/30/24 2133 traZODone (DESYREL) tablet 50 mg 50 mg Oral Nightly PRN Juwan Smith MD Medications Prior to Admission Medication Sig Dispense Refill Last Dose/Taking albuterol (PROVENTIL) 2.5 mg /3 mL (0.083 %) nebulizer solution Take 3 mL (2.5 mg total) by nebulization every 6 (six) hours as needed for wheezing or shortness of breath . 75 mL 3 Taking As Needed albuterol 90 mcg/actuation inhaler Inhale 1 (one) puff every 4 to 6 hours as needed for shortness of breath or wheezing . 18 g 3 Taking As Needed atorvastatin (LIPITOR) 40 MG tablet Take 1 (one) tablet (40 mg total) by mouth nightly . 90 tablet 0 Taking busPIRone (BUSPAR) 30 MG tablet Take 1 (one) tablet (30 mg total) by mouth 2 (two) times a day . Taking chlorthalidone (HYGROTON) 25 MG tablet Take 1 (one) tablet (25 mg total) by mouth daily . 90 tablet 1 Taking citalopram (CELEXA) 40 MG tablet Take 1 (one) tablet (40 mg total) by mouth daily . 90 tablet 1 Taking insulin lispro (AdmeLOG,HumaLOG) 100 unit/mL injection Inject up to 150 units once daily via pump . 50 mL 5 Taking INSULIN PUMP CARTRIDGE SUBQ Inject under the skin Use as directed . Taking lamoTRIgine (LAMICTAL) 25 MG tablet Take 1 (one) tablet (25 mg total) by mouth 2 (two) times a day . 60 tablet 2 Taking levETIRAcetam (KEPPRA) 1000 MG tablet Take 1 (one) tablet (1,000 mg total) by mouth 2 (two) times a day . 180 tablet 1 Taking levothyroxine (SYNTHROID, LEVOTHROID) 75 MCG tablet Take 1 (one) tablet (75 mcg total) by mouth once daily . 90 tablet 0 Taking lidocaine (LMX) 4 % cream Apply topically 3 (three) times a day . 90 g 3 Taking lisinopriL (PRINIVIL,ZESTRIL) 40 MG tablet Take 1 (one) tablet (40 mg total) by mouth daily . 90 tablet 1 Taking loratadine (CLARITIN) 10 mg tablet Take 1 (one) tablet (10 mg total) by mouth daily . 90 tablet 1 Taking metFORMIN (GLUCOPHAGE) 1000 MG tablet Take 1 (one) tablet (1,000 mg total) by mouth 2 (two) times a day . 60 tablet 5 Taking metoprolol succinate (TOPROL-XL) 50 MG 24 hr tablet Take 1 (one) tablet (50 mg total) by mouth daily . 90 tablet 1 Taking nortriptyline (PAMELOR) 25 MG capsule Take 1 (one) capsule (25 mg total) by mouth nightly . 90 capsule 1 Taking nystatin (MYCOSTATIN) powder Apply topically 2 (two) times a day . 30 g 1 Taking omeprazole (PRILOSEC) 40 MG capsule Take 1 (one) capsule (40 mg total) by mouth 2 (two) times a day . Taking oxyCODONE-acetaminophen (PERCOCET) 5-325 mg per tablet Take 1 (one) tablet by mouth nightly as needed for pain (Days supply per fill: 30) . 30 tablet 0 Taking As Needed pantoprazole (PROTONIX) 40 MG tablet Take 1 (one) tablet (40 mg total) by mouth daily . 90 tablet 1 Taking pregabalin (LYRICA) 75 MG capsule Take 1 (one) capsule (75 mg total) by mouth 2 (two) times a day (Days supply per fill: 30) . 60 capsule 0 Taking vitamin with Ca-Iron-FA 27-1 mg Tab Take 1 (one) tablet by mouth daily . Taking QUEtiapine (SEROQUEL) 400 MG tablet Take 2 (two) tablets (800 mg total) by mouth nightly . 60 tablet 2 Taking timolol (TIMOPTIC) 0.5 % ophthalmic solution Administer 1 (one) drop into the left eye daily . Taking tiZANidine (Zanaflex) 4 MG tablet Take 2 tabs p.o. nightly . 60 tablet 0 Taking traZODone (DESYREL) 50 MG tablet Take 1 (one) tablet (50 mg total) by mouth nightly as needed . 90 tablet 0 Taking As Needed alcohol swabs PadM Apply 1 (one) Swab. topically 5 (five) times a day Clean area before administering insulin. . 150 each 5 blood sugar diagnostic (glucose blood) strips by Miscellaneous route 3 (three) times a day As a backup to CGM to test blood sugar. One Touch Verio . 100 strip 5 Dexcom G6 Vibrator Operator Mis Use as directed for continuous glucose monitoring . 1 each 0 Dexcom G6 Sensor Simran Use as directed for continuous glucose monitoring change every 10 days . 3 each 11 Dexcom G6 Transmitter Simran Use as directed for continuous glucose monitoring change every 3 months . 1 each 3 ergocalciferol (Vitamin D2) 1,250 mcg (50,000 unit) capsule Take 1 (one) capsule (50,000 Units total) by mouth once a week . 12 capsule 1 glucagon (Gvoke HypoPen 2-Pack) 1 mg/0.2 mL AtIn Inject 0.2 mL (1 mg total) under the skin as needed . 2 mL 1 inhalational spacing device inhaler Use as instructed . 1 each 2 lancets Misc 1 Lancet by Miscellaneous route 3 (three) times a day . 100 each 5 lidocaine-prilocaine (EMLA) cream Apply topically as needed . 30 g 1 loperamide (IMODIUM) 2 mg capsule Take 1 (one) capsule (2 mg total) by mouth as needed for diarrhea (Max dose 7 pills) . 20 capsule 1 miscellaneous medical supply Misc 1 each by Miscellaneous route daily . 100 each 2 Omnipod 5 G6 Pods, Gen 5, Crtg Omnipod Insulin Refill Crtg ondansetron (ZOFRAN-ODT) 4 MG disintegrating tablet Dissolve 1 (one) tablet (4 mg total) on top of tongue every 8 (eight) hours as needed for nausea . 20 tablet 1 ROS: Negative except for HPI above Physical Exam: Patient Vitals for the past 24 hrs: BP Temp Temp src Pulse Resp SpO2 03/31/24 1033 -- -- -- -- 16 -- 03/31/24 0900 -- -- -- -- 17 -- 03/31/24 0732 (!) 142/83 97.4 F (36.3 C) Axillary 73 -- 93 % 03/31/24 0633 -- -- -- -- 16 -- 03/31/24 0246 -- -- -- -- 12 -- 03/31/24 0240 101/66 98.8 F (37.1 C) Oral 67 16 96 % 03/30/24 2227 -- -- -- -- 14 -- 03/30/24 2127 -- -- -- -- 16 -- 03/30/24 1937 130/60 97.6 F (36.4 C) Oral 89 16 93 % 03/30/24 1726 -- -- -- -- 16 -- 03/30/24 1626 -- -- -- -- 16 -- 03/30/24 1505 (!) 183/111 98.2 F (36.8 C) Axillary 78 14 98 % Pain Score: Temp (24hrs), Av F (36.7 C), Min:97.4 F (36.3 C), Max:98.8 F (37.1 C) PODIATRIC HISTORY AND PHYSICAL REVEALS: The patient is AOx3 and in no acute distress. VASCULAR: DP and PT pulses are 1/4 b/l. CFT <3sec. Pedal hair is absent. Skin temperature is warm to warm from proximal tibia to toes b/l. DERMATOLOGIC: Toenails 1-10 are within normal limits. Turgor and texture of skin is normal. NEUROLOGICAL: Epicritic and gross sensation is intact. Protective and vibratory sensation is diminished. Sharp, dull, hot and cold , vibratory, and proprioception sensations are: diminished. Achilles and patellar deep tendon reflexes intact. ORTHO: No pain with palpation secondary to neuropathy. Labs: Results from last 7 days Lab Units 03/31/24 0616 03/30/24 0549 03/29/24 0431 GLUCOSE mg/dL 139* 301* 288* BUN mg/dL 20 29* 36* CREATININE mg/dL 1.22* 1.67* 2.19* POTASSIUM mmol/L 3.4* 4.1 4.8 SODIUM mmol/L 143 139 137 CHLORIDE mmol/L 109* 108 108 CALCIUM mg/dL 8.9 9.1 8.7 PHOSPHORUS mg/dL 2.7 3.0 4.1 Lab Results Component Value Date WBC 6.83 03/31/2024 HGB 9.1 (L) 03/31/2024 HCT 26.9 (L) 03/31/2024 MCV 94.1 03/31/2024 PLT 266 03/31/2024 Lab Results Component Value Date CREATININE 1.22 (H) 03/31/2024 BUN 20 03/31/2024 NA 143 03/31/2024 K 3.4 (L) 03/31/2024 CL 109 (H) 03/31/2024 Lab Results Component Value Date PTT 34 06/03/2023 INR 1.0 06/03/2023 Lab Results Component Value Date HGBA1C 9.3 (H) 01/12/2024 Lab Results Component Value Date SEDRATE 62 (H) 03/24/2024 Lab Results Component Value Date CRP 15.1 (H) 03/24/2024 * Cannot find OR log * Imaging: ECG 12- Lead Result Date: 03/25/2024 Sinus tachycardia Possible Anterior infarct , age undetermined Abnormal ECG Confirmed by Inessa Rao MD ([id number]) on 03/25/2024 8:01:09 AM XR Toe(s) Left 2+ Views Result Date: 03/24/2024 EXAMINATION: XR TOE(S) LEFT 2+ VIEWS EXAM DATE: 03/24/2024 7:57 pm HISTORY: ORDERING SYSTEM PROVIDED HISTORY: pain/infection, TECHNOLOGIST PROVIDED HISTORY: Illness/Other Reason for exam: pain/reoccurring infection Cancer History: u Surgery, RadiationHistory: pacemaker Encounter Type: Initial Additional signs and symptoms: pain/infection ORDERING SYSTEM PROVIDED DIAGNOSIS CODES: COMPARISON: 04/28/2023 TECHNIQUE: AP, lateral and oblique views left toes FINDINGS: New erosive changes of the tip of the tuft of the 1st distal phalanx with overlying soft tissue wound. Soft tissue swelling of the 1st digit. No arthritic changes. Findings suggest osteomyelitis of the tip of the tuft of the 1st distal phalanx. Workstation ID: [id number] The total time spent for this visit was greater than 35 minutes. Greater than 50% of the time was spent in counseling and coordination of care and direct patient management. [facility] [place] PROGRESS NOTE Assessment and Plan Addie Jean Baptiste is a 48 y.o. female patient of Stephany Pelayo PA-C with history of T2DM, HTN, bipolar disorder, and chronic back pain presented to [facility] on 03/25/2024 with left toe wound. Right flank pain Acute onset this morning, uncomfortable in bed, states feels like previous kidney stones Afebrile, renal function improving Will check CT abdomen to rule out a stone PT consult for ambulation Sepsis due to Left diabetic toe osteomyelitis Hypotension hypovolemic vs iatrogenic from oversedation Acute metabolic encephalopathy-resolved Admitted with worsening left foot big toe pain and swelling. Transferred to ICU 03/26 due to hypotension and lethargy, now back to baseline, out of icu Noted BP 67/53 initially- Received 1.5L total IVF and Narcan with improvement in BP Afebrile; normal WBC on admission CRP 15.1. Lactic acid elevation due to hypotension, now resolved Wound culture with MSSA Xray L foot: Findings suggestive of first distal phalanx osteomyelitis On Zosyn, changed to cefazolin on 03/30 ID consulted, recommendation for cefadroxil p.o. 500 mg twice daily until 04/08 Podiatry following Pain control with Percocet SOLO on chronic kidney disease stage III Possible component of ATN Hyperkalemia- resolved Hypokalemia Cr peaked and remained around 2.5, now improving down to 1.22 Baseline creatinine 1.3-1.5. Chronic kidney disease due to diabetic nephropathy. Lokelma ordered by nephrology 03/28 Potassium 3.4 today, p.o. replacement ordered Nephrology following, continue to hold SHAJI diuretics and metformin Avoid nephrotoxins Cont PO hydration UTI UA with pyuria Urine culture with 50-100 K colonies of E. Coli Zosyn changed to cefazolin-to p.o. at discharge of cefadroxil T2DM on insulin pump Diabetic peripheral neuropathy Last A1c 9.9 % in 03/22/2024 Home insulin regimen: insulin pump Pump with no insulin, started on Lantus ,dose increased to 30 units at night Blood sugar improving Diabetic diet Consult conservation educator: Hypertension Hyperlipidemia Continue to hold metoprolol and SHAJI inhibitor Continue Lipitor SBP 106 Sick sinus syndrome PPM implantation in 2011. In 2017 underwent MRI compatible PPM placement at [facility]. Bipolar disorder Home meds including Celexa, BuSpar, Seroquel and Pamelor continued Seizure disorder Continue home lamictal Obesity Body mass index 47 Discussed dietary and lifestyle modifications Resolved acute medical issues Discharge Planning Medically Stable for Discharge Date: 04/01 Patient requires continued hospitalization due to: above Discharge Location:home Quality Measures DVT Prophylaxis: lovenox Chow Catheter: absent Code Status Full Primary Contact Information Subjective Patient seen and examined this morning. He states she is not feeling well to go home, complaining of right flank pain since this morning like her previous kidney stone Objective BP (!) 142/83 Pulse 73 Temp 97.4 F (36.3 C) (Axillary) Resp 16 Ht 5' 2 Wt 123.6 kg (272 lb 7.8 oz) SpO2 93% BMI 49.84 kg/m Physical Examination General Appearance: alert; well appearing; in no acute distress HEENT: Head- normocephalic; Eyes- normal external eye, hearing intact Cardiovascular: regular rate and rhythm; peripheral edema absent Respiratory: lungs clear to auscultation; without wheezes, rales or rhonchi; on room air Abdomen: soft, non-tender, non-distended Neurological: oriented x 3; normal speech; no focal findings or movement disorder noted Musculoskeletal: no significant deformity or tenderness to palpation. Left foot with covered ulcers Skin: normal coloration Psych: normal mood and affect NEPHROLOGY PROGRESS NOTE [facility] Patient Name: Addie Organ Admit Date: [id number] MR #: [id number] : 1975 Perpetual Assessment: Addie Jean Baptiste is a 48 y.o. female on hospital day 6 admitted for left toe pain and drainage We are asked to evaluate and manage SOLO on CKD . Impression and Plan: SOLO - due to volume mediated changes with component of ATN from hypotension and sepsis. Cr continue to show improvement. IVF has been heplock. UA and Ucx grew E. Coli - cont on zosyn. Kidney ultrasound did not show any hydronephrosis. . Continue to avoid nephrotoxic agents CKD stage 3 - baseline cr in the 1.3-1.5 range. 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 Agree with holding ACEI, diuretics, and metformin due to SOLO. Left toe osteomyelitis - Xray does show osteomyelitis. Wound cx grew MSSA. Plan per podiatry HTN - holding BP medications due to hypotension DM - insulin pump on hold. SSI Hypokalemia - will supplement as needed Subjective: Denies any new complaint Review of Systems: ROS otherwise reviewed and negative Physical Examination: Vitals: Vitals: 03/31/24 0633 03/31/24 0732 03/31/24 0900 03/31/24 1033 BP: (!) 142/83 BP Location: Patient Position: Pulse: 73 Resp: 16 17 16 Temp: 97.4 F (36.3 C) TempSrc: Axillary SpO2: 93% Weight: Height: Intake/Output last 3 shifts: Intake/Output Summary (Last 24 hours) at 03/31/2024 1035 Last data filed at 03/31/2024 0200 Gross per 24 hour Intake 440 ml Output -- Net 440 ml I/O last 3 completed shifts: In: 1454.4 [P.O.:940; I.V.:10; IV Piggyback:504.4] Out: - General: No acute distress HEENT: Anicteric Neck: Supple CV: Regular rate, no murmurs or rubs. trace lower extremity edema Lungs: CTA B Abd: Soft, nontender, bowel sounds present Extr: good LE perfusion, no cyanosis Results/Medications Reviewed 03/31/24 10:35 AM: Laboratory, Microbiology, Pathology, Radiology, Cardiology, Medications and Transcriptions reviewed Scheduled Meds: atorvastatin 40 mg Oral Nightly busPIRone 30 mg Oral BID cefadroxil 500 mg Oral Q12H SAMEER citalopram 40 mg Oral Daily enoxaparin (LOVENOX) injection 40 mg Subcutaneous BID insulin glargine 30 Units Subcutaneous Nightly lispro insulin 0-15 Units Subcutaneous at bedtime insulin lispro 0-30 Units Subcutaneous TID AC lamoTRIgine 25 mg Oral BID levothyroxine 75 mcg Oral Daily nicotine 1 patch Transdermal Daily nortriptyline 25 mg Oral Nightly pantoprazole 40 mg Oral QAM AC pregabalin 75 mg Oral BID QUEtiapine 800 mg Oral Nightly sodium chloride (PF) 5 mL Intravenous Q8H [facility] timolol 1 drop Left Eye Daily tiZANidine 4 mg Oral Nightly Continuous Infusions: Results from last 7 days Lab Units 03/31/24 0616 03/30/24 0549 03/29/24430 WBC K/mcL 6.83 6.90 7.18 HGB g/dL 9.1* 9.4* 8.8* HCT % 26.9* 29.7* 28.0* PLT K/mcL 266 263 264 Results from last 7 days Lab Units 03/31/24 0616 03/30/24 0549 03/29/24 043 SODIUM mmol/L 143 139 137 POTASSIUM mmol/L 3.4* 4.1 4.8 CHLORIDE mmol/L 109* 108 108 BICARB mmol/L 28 24 20* BUN mg/dL 20 29* 36* CREATININE mg/dL 1.22* 1.67* 2.19* EGFR mL/min/1.73 m2 56* 38* 28* GLUCOSE mg/dL 139* 301* 288* CALCIUM mg/dL 8.9 9.1 8.7 PHOSPHORUS mg/dL 2.7 3.0 4.1 Urinalysis Results from last 7 days Lab Units 03/25/24 0052 COLOR, UR Yellow CLARITY, UR Clear SPEC GRAV 1.021 PH, UR 5.0 GLUCOSE, UR mg/dL >=500* KETONES, UR mg/dL Negative BILIRUBIN, UR Negative UROBILINOGEN, UR mg/dL <2.0 BLOOD, UR Moderate* NITRITE, UR Negative LEUK LORI, UR Negative MUCUS, UR /lpf Rare WBC, UR /hpf 5 BACTERIA, UR /hpf Rare* [facility] [place]GRESS NOTE Assessment and Plan Addie Organ is a 48 y.o. female patient of Stephany Pelayo PA-C with history of T2DM, HTN, bipolar disorder, and chronic back pain presented to [facility] on 03/25/2024 with left toe wound. Sepsis due to Left diabetic toe osteomyelitis Hypotension hypovolemic vs iatrogenic from oversedation Acute metabolic encephalopathy-resolved Admitted with worsening left foot big toe pain and swelling. Transferred to ICU 03/26 due to hypotension and lethargy, now back to baseline, out of icu Noted BP 67/53 initially- Received 1.5L total IVF and Narcan with improvement in BP Afebrile; normal WBC on admission CRP 15.1. Lactic acid elevation due to hypotension, now resolved Wound culture with MSSA Xray L foot: Findings suggestive of first distal phalanx osteomyelitis On Zosyn, changed to cefazolin on 03/30 ID consulted, change antibiotics to cefazolin Podiatry following Pain control with Percocet SOLO on chronic kidney disease stage III Possible component of ATN Hyperkalemia- resolved Cr peaked and remained around 2.5, now improving down to 1.67 Baseline creatinine 1.3-1.5. Chronic kidney disease due to diabetic nephropathy. Lokelma ordered by nephrology 03/28 Nephrology following, continue to hold SHAJI diuretics and metformin Avoid nephrotoxins Cont PO hydration UTI UA with pyuria Urine culture with 50-100 K colonies of E. Coli Zosyn changed to cefazolin T2DM on insulin pump Diabetic peripheral neuropathy Last A1c 9.9 % in 03/22/2024 Home insulin regimen: insulin pump Pump with no insulin, started on Lantus , will increase dose to 30 units at night Diabetic diet Consult conservation educator: Hypertension Hyperlipidemia Continue to hold metoprolol and SHAJI inhibitor Continue Lipitor SBP 106 Sick sinus syndrome PPM implantation in 2011. In 2017 underwent MRI compatible PPM placement at [facility]. Bipolar disorder Home meds including Celexa, BuSpar, Seroquel and Pamelor continued Seizure disorder Continue home lamictal Obesity Body mass index 47 Discussed dietary and lifestyle modifications Resolved acute medical issues Discharge Planning Medically Stable for Discharge Date: 1-2 days Patient requires continued hospitalization due to: above Discharge Location: TBD Quality Measures DVT Prophylaxis: lovenox Chow Catheter: absent Code Status Full Primary Contact Information Subjective Patient seen and examined this morning. Feeling better, discussed need to start ambulating. Awaiting ID recommendation Objective BP (!) 178/93 (Patient Position: Lying) Pulse 74 Temp 97.9 F (36.6 C) (Oral) Resp 14 Ht 5' 2 Wt 123.6 kg (272 lb 7.8 oz) SpO2 96% BMI 49.84 kg/m Physical Examination General Appearance: alert; well appearing; in no acute distress HEENT: Head- normocephalic; Eyes- normal external eye, hearing intact Cardiovascular: regular rate and rhythm; peripheral edema absent Respiratory: lungs clear to auscultation; without wheezes, rales or rhonchi; on room air Abdomen: soft, non-tender, non-distended Neurological: oriented x 3; normal speech; no focal findings or movement disorder noted Musculoskeletal: no significant deformity or tenderness to palpation. Left foot with covered ulcers Skin: normal coloration Psych: normal mood and affect NEPHROLOGY PROGR[facility] Patient Name: Addie Jean Baptiste Admit Date: [id number] MR #: [id number] : 1975 Perpetual Assessment: Addie Jean Baptiste is a 48 y.o. female on hospital day 5 admitted for left toe pain and drainage We are asked to evaluate and manage SOLO on CKD . Impression and Plan: SOLO - due to volume mediated changes with component of ATN from hypotension and sepsis. Cr continue to show improvement. IVF has been heplock. UA and Ucx grew E. Coli - cont on zosyn. Kidney ultrasound did not show any hydronephrosis. . Continue to avoid nephrotoxic agents CKD stage 3 - baseline cr in the 1.3-1.5 range. 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 Agree with holding ACEI, diuretics, and metformin due to SOLO. Left toe osteomyelitis - Xray does show osteomyelitis. Wound cx grew MSSA. Plan per podiatry HTN - holding BP medications due to hypotension DM - insulin pump on hold. SSI Hyperkalemia - resolve with lokelma. Will stop the lokelma Subjective: Denies any new complaint Review of Systems: ROS otherwise reviewed and negative Physical Examination: Vitals: Vitals: 03/30/24 0429 03/30/24 0715 03/30/24 0718 03/30/24 0815 BP: (!) 146/92 (!) 187/113 BP Location: Patient Position: Lying Pulse: 69 72 Resp: 12 16 13 16 Temp: 97.5 F (36.4 C) 97.9 F (36.6 C) TempSrc: Oral Oral SpO2: 99% 96% Weight: 123.6 kg (272 lb 7.8 oz) Height: Intake/Output last 3 shifts: Intake/Output Summary (Last 24 hours) at 03/30/2024 1113 Last data filed at 03/30/2024 0513 Gross per 24 hour Intake 1014.41 ml Output -- Net 1014.41 ml I/O last 3 completed shifts: In: 1612.4 [P.O.:1148; I.V.:10; IV Piggyback:454.4] Out: 250 [Urine:250] General: No acute distress HEENT: Anicteric Neck: Supple CV: Regular rate, no murmurs or rubs. trace lower extremity edema Lungs: CTA B Abd: Soft, nontender, bowel sounds present Extr: good LE perfusion, no cyanosis Results/Medications Reviewed 03/30/24 11:13 AM: Laboratory, Microbiology, Pathology, Radiology, Cardiology, Medications and Transcriptions reviewed Scheduled Meds: atorvastatin 40 mg Oral Nightly busPIRone 30 mg Oral BID citalopram 40 mg Oral Daily enoxaparin (LOVENOX) injection 40 mg Subcutaneous BID insulin glargine 30 Units Subcutaneous Nightly lispro insulin 0-15 Units Subcutaneous at bedtime insulin lispro 0-30 Units Subcutaneous TID AC lamoTRIgine 25 mg Oral BID levothyroxine 75 mcg Oral Daily nortriptyline 25 mg Oral Nightly pantoprazole 40 mg Oral QAM AC piperacillin-tazobactam (ZOSYN) extended infusion 3.375 g Intravenous Q8H pregabalin 75 mg Oral BID QUEtiapine 800 mg Oral Nightly sodium chloride (PF) 5 mL Intravenous Q8H SAMEER sodium zirconium cyclosilicate 10 g Oral TID Followed by sodium zirconium cyclosilicate 10 g Oral Daily timolol 1 drop Left Eye Daily tiZANidine 4 mg Oral Nightly Continuous Infusions: Results from last 7 days Lab Units 03/30/24 0549 03/29/24 0431 03/28/24 0304 WBC K/mcL 6.90 7.18 7.07 HGB g/dL 9.4* 8.8* 9.2* HCT % 29.7* 28.0* 29.5* PLT K/mcL 263 264 282 Results from last 7 days Lab Units 03/30/24 0549 03/29/24 0431 03/28/24 0304 SODIUM mmol/L 139 137 137 POTASSIUM mmol/L 4.1 4.8 5.3* CHLORIDE mmol/L 108 108 107 BICARB mmol/L 24 20* 20* BUN mg/dL 29* 36* 34* CREATININE mg/dL 1.67* 2.19* 2.47* EGFR mL/min/1.73 m2 38* 28* 24* GLUCOSE mg/dL 301* 288* 281* CALCIUM mg/dL 9.1 8.7 8.5 PHOSPHORUS mg/dL 3.0 4.1 4.8* Urinalysis Results from last 7 days Lab Units 03/25/24 0052 COLOR, UR Yellow CLARITY, UR Clear SPEC GRAV 1.021 PH, UR 5.0 GLUCOSE, UR mg/dL >=500* KETONES, UR mg/dL Negative BILIRUBIN, UR Negative UROBILINOGEN, UR mg/dL <2.0 BLOOD, UR Moderate* NITRITE, UR Negative LEUK LORI, UR Negative MUCUS, UR /lpf Rare WBC, UR /hpf 5 BACTERIA, UR /hpf Rare* Images from the original note were not included. [facility] ASSESSMENT AND PLAN: Diabetes T2 with neuropathy 2. Hyperglycemia 3. CKD Stage III 4. H/o Seizures 5. Left hallux ulceration 6. Left foot cellulitis suspected Osteomyelitis Plan- The patient was seen and evaluated and discussed findings with patient. Ulceration of the left hallux distal tuft: The patient's ulceration of the right hallux distal is fibrogranular base, wound measurement is a 15 x 14 x 3 mm Hernandez grade 2 ulceration does not probe to bone tunnel or track. Applied a Betadine gauze bandage dressing instructed on daily dressing changes. Suspected osteomyelitis left hallux distal tuft: I did review the patient's x-rays today and distal phalanx concerns. I question how extensive for how aggressive any sort of osteomyelitis may be present in this toe necessitating amputation during this admission. we discussed the pathology, etiology, pathogenesis the patient condition with her today and going over possible conservative versus surgical options. The patient elected to continue conservative treatment to save her toe and so we will pursue an oral antibiotic treatment over the next months and pending culture results. White blood cell count is downtrending. Hypovolemic shock: Patient went into hypovolemic shock this past weekend due to possible accidental opioid overdose. Patient responded to Narcan and 1 L of IV fluids. Patient is hemodynamically stable now alert and oriented and responding appropriately to questions. -- OR Plans: none - ABX: Zosyn per medicine cultures pending - DSG: betadine wet to dry daily. - WBS: even weightbearing right foot - XR reviewed - suspected OM left hallux distal tuft - DISPO: final aerobic and anaerobic culture Showed no growth after 5 days with a few white blood cells and no organisms seen. Okay for discharge from our standpoint with outpatient follow-up within the next 1 to 2 weeks To continue conservative wound care and oral antibiotics. Answered questions and rediscussed plan at length with the patient and family if present. Discussed plan with other teams' providers. We discussed with the patient the pathology, etiology, pathogenesis, current condition management plan and disposition. This was discussed at various times during the day with representatives from nursing, pharmacy, case management, social work, and therapies as needed. We discussed with the patient he etiology of problems listed in the Assessment and Plan section, as well as risk factors, natural course, prognosis, treatment options with associated risks and benefits. Importance of compliance with the treatment plan was emphasized. I explained test results to date, as well as additional diagnostic recommendations. I explained discharge plans, including the required post-hospitalization care, treatment, and services. All questions were answered and ample time was provided. Avila Rajan PA-C, Foot and Ankle Surgery 03/30/2024 PAST MEDICAL HISTORY: Past Medical History: Diagnosis Date Anxiety Bipolar 1 disorder (HCC) Chronic back pain Chronic kidney disease, stage 3 unspecified (HCC) Coronary artery disease Depression Diabetes mellitus (HCC) Hypertension MRSA (methicillin resistant Staphylococcus aureus) Pacemaker Seizures (HCC) Stroke ([facility]) MEDICATIONS: Current Facility-Administered Medications Medication Dose Route Frequency Provider Last Rate Last Admin albuterol (PROVENTIL) 2.5 mg /3 mL (0.083 %) nebulizer solution 2.5 mg 2.5 mg Nebulization Q6H PRN Juwan Smith MD atorvastatin (LIPITOR) tablet 40 mg 40 mg Oral Nightly Juwan Smith MD 40 mg at 03/29/242113 busPIRone (BUSPAR) tablet 30 mg 30 mg Oral BID Juwan Smith MD 30 mg at 03/30/24713 citalopram (CELEXA) tablet 40 mg 40 mg Oral Daily Juwan Smith MD 40 mg at 03/30/24713 enoxaparin (LOVENOX) syringe 30 mg 30 mg Subcutaneous Daily Radha Castillo RPh,PharmD 30 mg at 03/29/242115 insulin glargine (LANTUS) injection 30 Units 30 Units Subcutaneous Nightly Leticia Rajput MD insulin lispro (AdmeLOG,HumaLOG) injection 0-15 Units 0-15 Units Subcutaneous at bedtime Merrick Almanza MD insulin lispro (AdmeLOG,HumaLOG) injection 0-30 Units 0-30 Units Subcutaneous TID AC Merrick Almanza MD 15 Units at 03/30/24 07 lamoTRIgine (LAMICTAL) tablet 25 mg 25 mg Oral BID Juwan Smith MD 25 mg at 03/30/24 0714 levothyroxine (SYNTHROID, LEVOTHROID) tablet 75 mcg 75 mcg Oral Daily Juwan Smith MD 75 mcg at 03/30/24 0511 naloxone (NARCAN) injection 0.1 mg 0.1 mg Intravenous PRN Floyd Rubin RPh,PharmD 0.1 mg at 03/28/24 05 And naloxone (NARCAN) injection 0.4 mg 0.4 mg Intravenous PRN Floyd Rubin RPh,PharmD 0.4 mg at 03/26/24 2300 nortriptyline (PAMELOR) capsule 25 mg 25 mg Oral Nightly Juwan Smith MD 25 mg at 03/29/242113 ondansetron (ZOFRAN) injection 4 mg 4 mg Intravenous Q6H PRN Jennifer Lopez CNP 4 mg at 03/30/24 0749 oxyCODONE-acetaminophen (PERCOCET) 5-325 mg per tablet 1 tablet 1 tablet Oral Q4H PRN Juwan Smith MD 1 tablet at 03/30/24 0715 pantoprazole (PROTONIX) EC tablet 40 mg 40 mg Oral QAM AC Juwan Smith MD 40 mg at 03/30/24 0715 piperacillin-tazobactam (ZOSYN) IVPB 3.375 g (premix) 3.375 g Intravenous Q8H Juwan Smith MD 12.5 mL/hr at 03/30/24 0718 3.375 g at 03/30/2418 pregabalin (LYRICA) capsule 75 mg 75 mg Oral BID Juwna Smith MD 75 mg at 03/30/2415 QUEtiapine (SEROQUEL) tablet 800 mg 800 mg Oral Nightly Juwan Smith MD 800 mg at 03/29/242113 sodium chloride (PF) (NS) flush 5 mL 5 mL Intravenous PRN Ani Gonzales CNP And sodium chloride 0.9% (NS) 0-150 mL/hr Intravenous PRN Ani Gonzales CNP Stopped at 03/25/24 0831 sodium chloride (PF) (NS) flush 5 mL 5 mL Intravenous PRN Juwan Smith MD And sodium chloride (PF) (NS) flush 5 mL 5 mL Intravenous Q8H SAMEER Juwan Smith MD 5 mL at 03/30/24 0513 And sodium chloride 0.9% (NS) 0-150 mL/hr Intravenous PRN Juwan Smith MD sodium zirconium cyclosilicate (LOKELMA) packet 10 g 10 g Oral TID Misha Serrato MD 10 g at 03/29/24 1626 Followed by sodium zirconium cyclosilicate (LOKELMA) packet 10 g 10 g Oral Daily Misha Serrato MD timolol (TIMOPTIC) 0.5 % ophthalmic solution 1 drop 1 drop Left Eye Daily Juwan Smith MD 1 drop at 03/30/24 0720 tiZANidine (ZANAFLEX) tablet 4 mg 4 mg Oral Nightly Juwan Smith MD 4 mg at 03/29/24 2113 traZODone (DESYREL) tablet 50 mg 50 mg Oral Nightly PRN Juwan Smith MD Medications Prior to Admission Medication Sig Dispense Refill Last Dose/Taking albuterol (PROVENTIL) 2.5 mg /3 mL (0.083 %) nebulizer solution Take 3 mL (2.5 mg total) by nebulization every 6 (six) hours as needed for wheezing or shortness of breath . 75 mL 3 Taking As Needed albuterol 90 mcg/actuation inhaler Inhale 1 (one) puff every 4 to 6 hours as needed for shortness of breath or wheezing . 18 g 3 Taking As Needed atorvastatin (LIPITOR) 40 MG tablet Take 1 (one) tablet (40 mg total) by mouth nightly . 90 tablet 0 Taking busPIRone (BUSPAR) 30 MG tablet Take 1 (one) tablet (30 mg total) by mouth 2 (two) times a day . Taking chlorthalidone (HYGROTON) 25 MG tablet Take 1 (one) tablet (25 mg total) by mouth daily . 90 tablet 1 Taking citalopram (CELEXA) 40 MG tablet Take 1 (one) tablet (40 mg total) by mouth daily . 90 tablet 1 Taking insulin lispro (AdmeLOG,HumaLOG) 100 unit/mL injection Inject up to 150 units once daily via pump . 50 mL 5 Taking INSULIN PUMP CARTRIDGE SUBQ Inject under the skin Use as directed . Taking lamoTRIgine (LAMICTAL) 25 MG tablet Take 1 (one) tablet (25 mg total) by mouth 2 (two) times a day . 60 tablet 2 Taking levETIRAcetam (KEPPRA) 1000 MG tablet Take 1 (one) tablet (1,000 mg total) by mouth 2 (two) times a day . 180 tablet 1 Taking levothyroxine (SYNTHROID, LEVOTHROID) 75 MCG tablet Take 1 (one) tablet (75 mcg total) by mouth once daily . 90 tablet 0 Taking lidocaine (LMX) 4 % cream Apply topically 3 (three) times a day . 90 g 3 Taking lisinopriL (PRINIVIL,ZESTRIL) 40 MG tablet Take 1 (one) tablet (40 mg total) by mouth daily . 90 tablet 1 Taking loratadine (CLARITIN) 10 mg tablet Take 1 (one) tablet (10 mg total) by mouth daily . 90 tablet 1 Taking metFORMIN (GLUCOPHAGE) 1000 MG tablet Take 1 (one) tablet (1,000 mg total) by mouth 2 (two) times a day . 60 tablet 5 Taking metoprolol succinate (TOPROL-XL) 50 MG 24 hr tablet Take 1 (one) tablet (50 mg total) by mouth daily . 90 tablet 1 Taking nortriptyline (PAMELOR) 25 MG capsule Take 1 (one) capsule (25 mg total) by mouth nightly . 90 capsule 1 Taking nystatin (MYCOSTATIN) powder Apply topically 2 (two) times a day . 30 g 1 Taking omeprazole (PRILOSEC) 40 MG capsule Take 1 (one) capsule (40 mg total) by mouth 2 (two) times a day . Taking oxyCODONE-acetaminophen (PERCOCET) 5-325 mg per tablet Take 1 (one) tablet by mouth nightly as needed for pain (Days supply per fill: 30) . 30 tablet 0 Taking As Needed pantoprazole (PROTONIX) 40 MG tablet Take 1 (one) tablet (40 mg total) by mouth daily . 90 tablet 1 Taking pregabalin (LYRICA) 75 MG capsule Take 1 (one) capsule (75 mg total) by mouth 2 (two) times a day (Days supply per fill: 30) . 60 capsule 0 Taking vitamin with Ca-Iron-FA 27-1 mg Tab Take 1 (one) tablet by mouth daily . Taking QUEtiapine (SEROQUEL) 400 MG tablet Take 2 (two) tablets (800 mg total) by mouth nightly . 60 tablet 2 Taking timolol (TIMOPTIC) 0.5 % ophthalmic solution Administer 1 (one) drop into the left eye daily . Taking tiZANidine (Zanaflex) 4 MG tablet Take 2 tabs p.o. nightly . 60 tablet 0 Taking traZODone (DESYREL) 50 MG tablet Take 1 (one) tablet (50 mg total) by mouth nightly as needed . 90 tablet 0 Taking As Needed alcohol swabs PadM Apply 1 (one) Swab. topically 5 (five) times a day Clean area before administering insulin. . 150 each 5 blood sugar diagnostic (glucose blood) strips by Miscellaneous route 3 (three) times a day As a backup to CGM to test blood sugar. One Touch Verio . 100 strip 5 Dexcom G6 Vibrator Operator Misc Use as directed for continuous glucose monitoring . 1 each 0 Dexcom G6 Sensor Simran Use as directed for continuous glucose monitoring change every 10 days . 3 each 11 Dexcom G6 Transmitter Simran Use as directed for continuous glucose monitoring change every 3 months . 1 each 3 ergocalciferol (Vitamin D2) 1,250 mcg (50,000 unit) capsule Take 1 (one) capsule (50,000 Units total) by mouth once a week . 12 capsule 1 glucagon (Gvoke HypoPen 2-Pack) 1 mg/0.2 mL AtIn Inject 0.2 mL (1 mg total) under the skin as needed . 2 mL 1 inhalational spacing device inhaler Use as instructed . 1 each 2 lancets Misc 1 Lancet by Miscellaneous route 3 (three) times a day . 100 each 5 lidocaine-prilocaine (EMLA) cream Apply topically as needed . 30 g 1 loperamide (IMODIUM) 2 mg capsule Take 1 (one) capsule (2 mg total) by mouth as needed for diarrhea (Max dose 7 pills) . 20 capsule 1 miscellaneous medical supply Misc 1 each by Miscellaneous route daily . 100 each 2 Omnipod 5 G6 Pods, Gen 5, Crtg Omnipod Insulin Refill Crtg ondansetron (ZOFRAN-ODT) 4 MG disintegrating tablet Dissolve 1 (one) tablet (4 mg total) on top of tongue every 8 (eight) hours as needed for nausea . 20 tablet 1 ROS: Negative except for HPI above Physical Exam: Patient Vitals for the past 24 hrs: BP Temp Temp src Pulse Resp SpO2 Weight 03/30/24 0815 -- -- -- -- 16 -- -- 03/30/24 0718 (!) 187/113 97.9 F (36.6 C) Oral 72 13 96 % -- 03/30/24 0715 -- -- -- -- 16 -- -- 03/30/24 0429 (!) 146/92 97.5 F (36.4 C) Oral 69 12 99 % 123.6 kg (272 lb 7.8 oz) 03/29/24 2330 (!) 143/90 98.2 F (36.8 C) Oral 67 16 93 % -- 03/29/245 -- -- -- -- (!) 22 -- -- 03/29/24 1939 139/85 98 F (36.7 C) Oral 83 16 92 % -- 03/29/24 1805 (!) 175/106 -- -- 80 -- -- -- 03/29/24 1652 -- -- -- -- 16 -- -- 03/29/24 1624 (!) 200/98 97.4 F (36.3 C) Oral 78 12 97 % -- 03/29/24 1530 (!) 182/110 -- -- 77 16 96 % -- 03/29/24 1247 -- -- -- -- 16 -- -- 03/29/24 1131 (!) 181/95 -- -- 94 16 92 % -- 03/29/24 1053 (!) 155/98 97.3 F (36.3 C) Oral 69 18 90 % -- Pain Score: Temp (24hrs), Av.7 F (36.5 C), Min:97.3 F (36.3 C), Max:98.2 F (36.8 C) PODIATRIC HISTORY AND PHYSICAL REVEALS: The patient is AOx3 and in no acute distress. VASCULAR: DP and PT pulses are 1/4 b/l. CFT <3sec. Pedal hair is absent. Skin temperature is warm to warm from proximal tibia to toes b/l. DERMATOLOGIC: Toenails 1-10 are within normal limits. Turgor and texture of skin is normal. NEUROLOGICAL: Epicritic and gross sensation is intact. Protective and vibratory sensation is diminished. Sharp, dull, hot and cold , vibratory, and proprioception sensations are: diminished. Achilles and patellar deep tendon reflexes intact. ORTHO: No pain with palpation secondary to neuropathy. Labs: Results from last 7 days Lab Units 03/30/24 0549 03/29/24 0431 03/28/24 0304 GLUCOSE mg/dL 301* 288* 281* BUN mg/dL 29* 36* 34* CREATININE mg/dL 1.67* 2.19* 2.47* POTASSIUM mmol/L 4.1 4.8 5.3* SODIUM mmol/L 139 137 137 CHLORIDE mmol/L 108 108 107 CALCIUM mg/dL 9.1 8.7 8.5 PHOSPHORUS mg/dL 3.0 4.1 4.8* Lab Results Component Value Date WBC 6.90 03/30/2024 HGB 9.4 (L) 03/30/2024 HCT 29.7 (L) 03/30/2024 MCV 95.5 03/30/2024 PLT 263 03/30/2024 Lab Results Component Value Date CREATININE 1.67 (H) 03/30/2024 BUN 29 (H) 03/30/2024 NA 139 03/30/2024 K 4.1 03/30/2024 CL 108 03/30/2024 Lab Results Component Value Date PTT 34 06/03/2023 INR 1.0 06/03/2023 Lab Results Component Value Date HGBA1C 9.3 (H) 01/12/2024 Lab Results Component Value Date SEDRATE 62 (H) 03/24/2024 Lab Results Component Value Date CRP 15.1 (H) 03/24/2024 * Cannot find OR log * Imaging: ECG 12- Lead Result Date: 03/25/2024 Sinus tachycardia Possible Anterior infarct , age undetermined Abnormal ECG Confirmed by Inessa Rao MD ([id number]) on 03/25/2024 8:01:09 AM XR Toe(s) Left 2+ Views Result Date: 03/24/2024 EXAMINATION: XR TOE(S) LEFT 2+ VIEWS EXAM DATE: 03/24/2024 7:57 pm HISTORY: ORDERING SYSTEM PROVIDED HISTORY: pain/infection, TECHNOLOGIST PROVIDED HISTORY: Illness/Other Reason for exam: pain/reoccurring infection Cancer History: u Surgery, RadiationHistory: pacemaker Encounter Type: Initial Additional signs and symptoms: pain/infection ORDERING SYSTEM PROVIDED DIAGNOSIS CODES: COMPARISON: 04/28/2023 TECHNIQUE: AP, lateral and oblique views left toes FINDINGS: New erosive changes of the tip of the tuft of the 1st distal phalanx with overlying soft tissue wound. Soft tissue swelling of the 1st digit. No arthritic changes. Findings suggest osteomyelitis of the tip of the tuft of the 1st distal phalanx. Workstation ID: [id number] The total time spent for this visit was greater than 35 minutes. Greater than 50% of the time was spent in counseling and coordination of care and direct patient management. Cosigned by Floyd Castillo DPM at 03/30/2024 4:43 PM EST [facility]Y [facility] Patient Name: Addie Jean Baptiste Admit Date: [id number] MR #: [id number] : 1975 Perpetual Assessment: Addie Jean Baptiste is a 48 y.o. female on hospital day 4 admitted for left toe pain and drainage We are asked to evaluate and manage SOLO on CKD . Impression and Plan: SOLO - due to volume mediated changes with component of ATN from hypotension and sepsis. Cr did show improvement. IVF has been heplock. UA and Ucx grew E. Coli - cont on zosyn. Kidney ultrasound did not show any hydronephrosis. . Continue to avoid nephrotoxic agents CKD stage 3 - baseline cr in the 1.3-1.5 range. 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 Agree with holding ACEI, diuretics, and metformin due to SOLO. Left toe osteomyelitis - Xray does show osteomyelitis. Wound cx grew MSSA. Plan per podiatry HTN - holding BP medications due to hypotension DM - insulin pump on hold. SSI Hyperkalemia - resolve with lokelma. Will continue for another day. Subjective: Denies any new complaint Review of Systems: ROS otherwise reviewed and negative Physical Examination: Vitals: Vitals: 03/29/24 0903 03/29/24 1053 03/29/24 1131 03/29/24 1247 BP: (!) 155/98 (!) 181/95 BP Location: Right arm Right arm Patient Position: Lying Lying Pulse: 69 94 Resp: (!) 9 18 16 16 Temp: 97.3 F (36.3 C) TempSrc: Oral SpO2: 90% 92% Weight: Height: Intake/Output last 3 shifts: Intake/Output Summary (Last 24 hours) at 03/29/2024 1446 Last data filed at 03/29/2024 0936 Gross per 24 hour Intake 598 ml Output 250 ml Net 348 ml I/O last 3 completed shifts: In: 960 [P.O.:960] Out: 400 [Urine:400] General: No acute distress HEENT: Anicteric Neck: Supple CV: Regular rate, no murmurs or rubs. No lower extremity edema Lungs: CTA B Abd: Soft, nontender, bowel sounds present Extr: good LE perfusion, no cyanosis Results/Medications Reviewed 03/29/24 2:46 PM: Laboratory, Microbiology, Pathology, Radiology, Cardiology, Medications and Transcriptions reviewed Scheduled Meds: atorvastatin 40 mg Oral Nightly busPIRone 30 mg Oral BID citalopram 40 mg Oral Daily enoxaparin (LOVENOX) injection 30 mg Subcutaneous Daily insulin glargine 20 Units Subcutaneous Nightly lispro insulin 0-15 Units Subcutaneous at bedtime insulin lispro 0-30 Units Subcutaneous TID AC lamoTRIgine 25 mg Oral BID levothyroxine 75 mcg Oral Daily nortriptyline 25 mg Oral Nightly pantoprazole 40 mg Oral QAM AC piperacillin-tazobactam (ZOSYN) extended infusion 3.375 g Intravenous Q8H pregabalin 75 mg Oral BID QUEtiapine 800 mg Oral Nightly sodium chloride (PF) 5 mL Intravenous Q8H SAMEER sodium zirconium cyclosilicate 10 g Oral TID Followed by [START ON 03/30/2024] sodium zirconium cyclosilicate 10 g Oral Daily timolol 1 drop Left Eye Daily tiZANidine 4 mg Oral Nightly Continuous Infusions: Results from last 7 days Lab Units 03/29/2443003/28/2430303/27/24 043 WBC K/mcL 7.18 7.07 7.80 HGB g/dL 8.8* 9.2* 9.6* HCT % 28.0* 29.5* 30.8* PLT K/mcL 264 282 308 Results from last 7 days Lab Units 03/29/2443003/28/2430303/27/24 043 SODIUM mmol/L 137 137 140 POTASSIUM mmol/L 4.8 5.3* 4.8 CHLORIDE mmol/L 108 107 110* BICARB mmol/L 20* 20* 21 BUN mg/dL 36* 34* 32* CREATININE mg/dL 2.19* 2.47* 2.53* EGFR mL/min/1.73 m2 28* 24* 23* GLUCOSE mg/dL 288* 281* 161* CALCIUM mg/dL 8.7 8.5 8.2* PHOSPHORUS mg/dL 4.1 4.8* -- Urinalysis Results from last 7 days Lab Units 03/25/24 0052 COLOR, UR Yellow CLARITY, UR Clear SPEC GRAV 1.021 PH, UR 5.0 GLUCOSE, UR mg/dL >=500* KETONES, UR mg/dL Negative BILIRUBIN, UR Negative UROBILINOGEN, UR mg/dL <2.0 BLOOD, UR Moderate* NITRITE, UR Negative LEUK LORI, UR Negative MUCUS, UR /lpf Rare WBC, UR /hpf 5 BACTERIA, UR /hpf Rare* [facility] [place]GRESS NOTE Assessment and Plan Addie Jean Baptiste is a 48 y.o. female patient of Stephany Pelayo PA-C with history of T2DM, HTN, bipolar disorder, and chronic back pain presented to [facility] on 03/25/2024 with left toe wound. Sepsis due to Left diabetic toe osteomyelitis Hypotension hypovolemic vs iatrogenic from oversedation Acute metabolic encephalopathy-resolved Admitted with worsening left foot big toe pain and swelling. Transferred to ICU 03/26 due to hypotension and lethargy, now back to baseline, out of icu Noted BP 67/53 initially- Received 1.5L total IVF and Narcan with improvement in BP Afebrile; normal WBC on admission CRP 15.1. Lactic acid elevation due to hypotension, now resolved Wound culture with MSSA Xray L foot: Findings suggestive of first distal phalanx osteomyelitis On Zosyn, will wait for ID recs to de-escalate ID consulted Podiatry following Pain control with Percocet SOLO on chronic kidney disease stage III Possible component of ATN Hyperkalemia- resolved Cr peaked and remained around 2.5, mild improvement today Baseline creatinine 1.3-1.5. Chronic kidney disease due to diabetic nephropathy. Lokelma ordered by nephrology 03/28 Nephrology following, continue to hold SHAJI diuretics and metformin Avoid nephrotoxins Cont PO hydration UTI UA with pyuria Urine culture with 50-100 K colonies of E. Coli Zosyn T2DM on insulin pump Diabetic peripheral neuropathy Last A1c 9.9 % in 03/22/2024 Home insulin regimen: insulin pump Pump with no insuline, will start Lantus 20u at night today Diabetic diet Consult conservation educator: Hypertension Hyperlipidemia Continue to hold metoprolol and SHAJI inhibitor Continue Lipitor SBP 106 Sick sinus syndrome PPM implantation in 2011. In 2017 underwent MRI compatible PPM placement at [facility]. Bipolar disorder Home meds including Celexa, BuSpar, Seroquel and Pamelor continued Seizure disorder Continue home lamictal Obesity Body mass index 47 Discussed dietary and lifestyle modifications Resolved acute medical issues Discharge Planning Medically Stable for Discharge Date: TBD Patient requires continued hospitalization due to: above Discharge Location: TBD Quality Measures DVT Prophylaxis: lovenox Chow Catheter: absent Code Status Full Primary Contact Information Subjective Patient seen and examined this morning. Pain better controlled than yesterday. Objective BP 113/76 (BP Location: Right arm, Patient Position: Lying) Pulse 71 Temp 98.4 F (36.9 C) (Oral) Resp 16 Ht 5' 2 Wt 122.2 kg (269 lb 6.4 oz) SpO2 96% BMI 49.27 kg/m Physical Examination General Appearance: alert; well appearing; in no acute distress HEENT: Head- normocephalic; Eyes- normal external eye, hearing intact Cardiovascular: regular rate and rhythm; peripheral edema absent Respiratory: lungs clear to auscultation; without wheezes, rales or rhonchi; on room air Abdomen: soft, non-tender, non-distended Neurological: oriented x 3; normal speech; no focal findings or movement disorder noted Musculoskeletal: no significant deformity or tenderness to palpation. Left foot with covered ulcers Skin: normal coloration Psych: normal mood and affect [facility] [place] PROGRESS NOTE Assessment and Plan Addie Jean Baptiste is a 48 y.o. female patient of Stephany Pelayo PA-C with history of T2DM, HTN, bipolar disorder, and chronic back pain presented to [facility] on 03/25/2024 with left toe wound. Hypotension hypovolemic vs iatrogenic from oversedation Acute metabolic encephalopathy-resolved Sepsis due to Left diabetic toe osteomyelitis Admitted with worsening left foot big toe pain and swelling. Transferred to ICU 03/26 due to hypotension and lethergy Noted BP 67/53 initially- Received 1.5L total IVF and Narcan with improvement in BP Afebrile; normal WBC on admission CRP 15.1. Lactic acid elevation due to hypotension, now resolved Wound culture with MSSA Xray L foot: Findings suggestive of first distal phalanx osteomyelitis Continues IV Zosyn Podiatry following, will reassess today for final plan Pain control with Percocet SOLO on chronic kidney disease stage III Possible component of ATN Hyperkalemia Cr peaked and remained stable around 2.5 Baseline creatinine 1.3-1.5. Chronic kidney disease due to diabetic nephropathy. Potassium 5.3, Lokelma ordered by nephrology IVF as above Nephrology following, continue to hold SHAJI diuretics and metformin Avoid nephrotoxins Daily RFPs, strict I&Os, daily weights UTI UA with pyuria Urine culture with 50-100 K colonies of E. Coli Continue Zosyn T2DM on insulin pump Diabetic peripheral neuropathy Last A1c 9.9 % in 03/22/2024 Home insulin regimen: insulin pump Pharmacy consulted to continue insulin pump Diabetic diet Consult conservation educator: Admits that she has not been bolusing for her blood sugars with her insulin pump . Initially insulin ordered Hypertension Hyperlipidemia Continue metoprolol and SHAJI inhibitor Continue Lipitor SBP 106 Sick sinus syndrome PPM implantation in 2011. In 2016 underwent MRI compatible PPM placement at [facility]. Bipolar disorder Home meds including Celexa, BuSpar, Seroquel and Pamelor continued Seizure disorder Continue home lamictal Obesity Body mass index 47 Discussed dietary and lifestyle modifications Resolved acute medical issues Discharge Planning Medically Stable for Discharge Date: TBD Patient requires continued hospitalization due to: above Discharge Location: TBD Quality Measures DVT Prophylaxis: lovenox Chow Catheter: absent Code Status Full Primary Contact Information Subjective Patient continues to report left toe pain, overall feeling better Objective BP 121/61 Pulse 75 Temp 98.1 F (36.7 C) (Oral) Resp 12 Ht 5' 2 Wt 120.5 kg (265 lb 10.5 oz) SpO2 97% BMI 48.59 kg/m Physical Examination General Appearance: alert; well appearing; in no acute distress HEENT: Head- normocephalic; Eyes- normal external eye, hearing intact Cardiovascular: regular rate and rhythm; peripheral edema absent Respiratory: lungs clear to auscultation; without wheezes, rales or rhonchi; on room air Abdomen: soft, non-tender, non-distended Neurological: oriented x 3; normal speech; no focal findings or movement disorder noted Musculoskeletal: no significant deformity or tenderness to palpation. Left foot not assessed this AM due to recent dressing change Skin: normal coloration Psych: normal mood and affect NEPHROLOGY PROGRESS NOTE [facility] Patient Name: Addie Jean Baptiste Admit Date: [id number] MR #: [id number] : 1975 Perpetual Assessment: Addie Jean Baptiste is a 48 y.o. female on hospital day 3 admitted for left toe pain and drainage We are asked to evaluate and manage SOLO on CKD . Impression and Plan: SOLO - due to volume mediated changes with component of ATN from hypotension and sepsis. Will keep on IVF 0.9 NS at 75 ml/hr. UA and Ucx grew E. Coli - cont on zosyn. Kidney ultrasound did not show any hydronephrosis. . Continue to avoid nephrotoxic agents CKD stage 3 - baseline cr in the 1.3-1.5 range. 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 Agree with holding ACEI, diuretics, and metformin due to SOLO. Left toe osteomyelitis - Xray does show osteomyelitis. Wound cx grew MSSA. Plan per podiatry HTN - holding BP medications due to hypotension DM - insulin pump on hold. SSI Hyperkalemia - will start on lokelma Subjective: Denies any new complaint Review of Systems: ROS otherwise reviewed and negative Physical Examination: Vitals: Vitals: 03/28/24 0900 03/28/24 1022 03/28/24 1100 03/28/24 1129 BP: 129/76 123/76 121/77 121/61 BP Location: Patient Position: Pulse: 88 80 74 75 Resp: 12 12 12 (!) 21 Temp: 98.1 F (36.7 C) TempSrc: Oral SpO2: 97% Weight: Height: Intake/Output last 3 shifts: Intake/Output Summary (Last 24 hours) at 03/28/2024 1253 Last data filed at 03/28/2024 0900 Gross per 24 hour Intake 882.68 ml Output 400 ml Net 482.68 ml I/O last 3 completed shifts: In: 2351.7 [P.O.:440; I.V.:161.9; IV Piggyback:1749.8] Out: 300 [Urine:300] General: No acute distress HEENT: Anicteric Neck: Supple CV: Regular rate, no murmurs or rubs. No lower extremity edema Lungs: CTA B Abd: Soft, nontender, bowel sounds present Extr: good LE perfusion, no cyanosis Results/Medications Reviewed 03/28/24 12:53 PM: Laboratory, Microbiology, Pathology, Radiology, Cardiology, Medications and Transcriptions reviewed Scheduled Meds: atorvastatin 40 mg Oral Nightly busPIRone 30 mg Oral BID citalopram 40 mg Oral Daily enoxaparin (LOVENOX) injection 30 mg Subcutaneous Daily lispro insulin 0-15 Units Subcutaneous at bedtime insulin lispro 0-30 Units Subcutaneous TID AC lamoTRIgine 25 mg Oral BID levothyroxine 75 mcg Oral Daily nortriptyline 25 mg Oral Nightly pantoprazole 40 mg Oral QAM AC piperacillin-tazobactam (ZOSYN) extended infusion 3.375 g Intravenous Q8H pregabalin 75 mg Oral BID QUEtiapine 800 mg Oral Nightly scopolamine 1 patch Transdermal Once sodium chloride (PF) 5 mL Intravenous Q8H SAMEER timolol 1 drop Left Eye Daily tiZANidine 4 mg Oral Nightly Continuous Infusions: sodium chloride 0.9 % 75 mL/hr (03/28/24 0019) Results from last 7 days Lab Units 03/28/24 0304 03/27/24 0434 03/25/24 0550 WBC K/mcL 7.07 7.80 8.66 HGB g/dL 9.2* 9.6* 10.2* HCT % 29.5* 30.8* 29.7* PLT K/mcL 282 308 297 Results from last 7 days Lab Units 03/28/24 0304 03/27/24 0434 03/26/24 2306 SODIUM mmol/L 137 140 137 POTASSIUM mmol/L 5.3* 4.8 4.8 CHLORIDE mmol/L 107 110* 106 BICARB mmol/L 20* 21 20* BUN mg/dL 34* 32* 30* CREATININE mg/dL 2.47* 2.53* 2.52* EGFR mL/min/1.73 m2 24* 23* 23* GLUCOSE mg/dL 281* 161* 333* CALCIUM mg/dL 8.5 8.2* 8.3* PHOSPHORUS mg/dL 4.8* -- -- Urinalysis Results from last 7 days Lab Units 03/25/24 0052 COLOR, UR Yellow CLARITY, UR Clear SPEC GRAV 1.021 PH, UR 5.0 GLUCOSE, UR mg/dL >=500* KETONES, UR mg/dL Negative BILIRUBIN, UR Negative UROBILINOGEN, UR mg/dL <2.0 BLOOD, UR Moderate* NITRITE, UR Negative LEUK LORI, UR Negative MUCUS, UR /lpf Rare WBC, UR /hpf 5 BACTERIA, UR /hpf Rare* [facility] ASSESSMENT AND PLAN: Diabetes T2 with neuropathy Hyperglycemia CKD Stage III H/o Seizures left hallux ulceration Left foot cellulitis suspected Osteomyelitis The patient was seen and evaluated and discussed findings with patient. Ulceration of the right hallux distal tuft: The patient's ulceration of the right hallux distal is fibrogranular base, wound measurement is a 15 x 14 x 3 mm Hernandez grade 2 ulceration does not probe to bone tunnel or track. Applied a Betadine gauze bandage dressing instructed on daily dressing changes. Suspected osteomyelitis right hallux distal tuft: I did review the patient's x-rays today and distal. I question how extensive for how aggressive any sort of osteomyelitis may be present in this toe necessitating amputation during this admission. The patient elected to continue conservative treatment to save her toe and so we will pursue an oral antibiotic treatment over the next months and pending culture results. White blood cell count is downtrending. Hypovolemic shock: Patient went into hypovolemic shock this past weekend due to possible accidental opioid overdose. Patient responded to Narcan and 1 L of IV fluids. Patient is hemodynamically stable now alert and oriented and responding appropriately to questions. -- OR Plans: none - ABX: Zosyn per medicine cultures pending - DSG: betadine wet to dry daily. - WBS: even weightbearing right foot - XR reviewed - suspected OM left hallux distal tuft - DISPO: final aerobic and anaerobic culture pending. Will plan for oral antibiotic treatment pending these cultures, with outpatient follow-up once shock has resolved. Answered questions and rediscussed plan at length with the patient and family if present. Discussed plan with other teams' providers. We discussed with the patient the pathology, etiology, pathogenesis, current condition management plan and disposition. This was discussed at various times during the day with representatives from nursing, pharmacy, case management, social work, and therapies as needed. We discussed with the patient he etiology of problems listed in the Assessment and Plan section, as well as risk factors, natural course, prognosis, treatment options with associated risks and benefits. Importance of compliance with the treatment plan was emphasized. I explained test results to date, as well as additional diagnostic recommendations. I explained discharge plans, including the required post-hospitalization care, treatment, and services. All questions were answered and ample time was provided. Avila Rajan PA-C, Foot and Ankle Surgery 03/28/2024 PAST MEDICAL HISTORY: Past Medical History: Diagnosis Date Anxiety Bipolar 1 disorder (HCC) Chronic back pain Chronic kidney disease, stage 3 unspecified (HCC) Coronary artery disease Depression Diabetes mellitus (HCC) Hypertension MRSA (methicillin resistant Staphylococcus aureus) Pacemaker Seizures (HCC) Stroke (HCC) MEDICATIONS: Current Facility-Administered Medications Medication Dose Route Frequency Provider Last Rate Last Admin albuterol (PROVENTIL) 2.5 mg /3 mL (0.083 %) nebulizer solution 2.5 mg 2.5 mg Nebulization Q6H PRN Juwan Smith MD atorvastatin (LIPITOR) tablet 40 mg 40 mg Oral Nightly Juwan Smith MD 40 mg at 03/27/242019 busPIRone (BUSPAR) tablet 30 mg 30 mg Oral BID Juwan Smith MD 30 mg at 03/28/24 08 citalopram (CELEXA) tablet 40 mg 40 mg Oral Daily Juwan Smith MD 40 mg at 03/28/24 08 enoxaparin (LOVENOX) syringe 30 mg 30 mg Subcutaneous Daily Radha Castillo, [facility],PharmD insulin lispro (AdmeLOG,HumaLOG) injection 0-15 Units 0-15 Units Subcutaneous at bedtime Merrick Almanza MD insulin lispro (AdmeLOG,HumaLOG) injection 0-30 Units 0-30 Units Subcutaneous TID Merrick Almanza MD 15 Units at 03/28/24 0857 lamoTRIgine (LAMICTAL) tablet 25 mg 25 mg Oral BID Juwan Smith MD 25 mg at 03/28/24 0857 levothyroxine (SYNTHROID, LEVOTHROID) tablet 75 mcg 75 mcg Oral Daily Juwan Smith MD 75 mcg at 03/28/24 0539 naloxone (NARCAN) injection 0.1 mg 0.1 mg Intravenous PRN Floyd Rubin [facility],PharmD 0.1 mg at 03/28/24 0520 And naloxone (NARCAN) injection 0.4 mg 0.4 mg Intravenous PRN Floyd Rubin RP,PharmD 0.4 mg at 03/26/24 2300 nortriptyline (PAMELOR) capsule 25 mg 25 mg Oral Nightly Juwan Smith MD 25 mg at 03/27/24 2020 ondansetron (ZOFRAN) injection 4 mg 4 mg Intravenous Q6H PRN Jennifer Lopez CNP 4 mg at 03/26/24 1706 oxyCODONE-acetaminophen (PERCOCET) 5-325 mg per tablet 1 tablet 1 tablet Oral Q4H PRN Juwan Smith MD 1 tablet at 03/28/24 0857 pantoprazole (PROTONIX) EC tablet 40 mg 40 mg Oral QAM Juwan Smith MD 40 mg at 03/28/24 0857 piperacillin-tazobactam (ZOSYN) IVPB 3.375 g (premix) 3.375 g Intravenous Q8H Juwan Smith MD 12.5 mL/hr at 03/28/24 0904 3.375 g at 03/28/24 0904 pregabalin (LYRICA) capsule 75 mg 75 mg Oral BID Juwan Smith MD 75 mg at 03/28/24 0857 QUEtiapine (SEROQUEL) tablet 800 mg 800 mg Oral Nightly Juwan Smith MD 800 mg at 03/27/242020 scopolamine (TRANSDERM-SCOP) 1 mg over 3 days patch 1 patch 1 patch Transdermal Once Jennifer Lopez CNP 1 patch at 03/25/24 1508 sodium chloride (PF) (NS) flush 5 mL 5 mL Intravenous PRN Ani Gonzales CNP And sodium chloride 0.9% (NS) 0-150 mL/hr Intravenous PRN Ani Gonzales CNP Stopped at 03/25/24 0831 sodium chloride (PF) (NS) flush 5 mL 5 mL Intravenous PRN Juwan Smith MD And sodium chloride (PF) (NS) flush 5 mL 5 mL Intravenous Q8H SAMEER Juwan Smith MD 5 mL at 03/27/24 1325 And sodium chloride 0.9% (NS) 0-150 mL/hr Intravenous PRN Juwan Smith MD sodium chloride 0.9% (NS) 75 mL/hr Intravenous Continuous Misha Serrato MD 75 mL/hr at 03/28/24 0019 75 mL/hr at 03/28/24 0019 timolol (TIMOPTIC) 0.5 % ophthalmic solution 1 drop 1 drop Left Eye Daily Juwan Smith MD 1 drop at 03/28/24 0901 tiZANidine (ZANAFLEX) tablet 4 mg 4 mg Oral Nightly Juwan Smith MD 4 mg at 03/27/242019 traZODone (DESYREL) tablet 50 mg 50 mg Oral Nightly PRN Juwan Smith MD Medications Prior to Admission Medication Sig Dispense Refill Last Dose/Taking albuterol (PROVENTIL) 2.5 mg /3 mL (0.083 %) nebulizer solution Take 3 mL (2.5 mg total) by nebulization every 6 (six) hours as needed for wheezing or shortness of breath . 75 mL 3 Taking As Needed albuterol 90 mcg/actuation inhaler Inhale 1 (one) puff every 4 to 6 hours as needed for shortness of breath or wheezing . 18 g 3 Taking As Needed atorvastatin (LIPITOR) 40 MG tablet Take 1 (one) tablet (40 mg total) by mouth nightly . 90 tablet 0 Taking busPIRone (BUSPAR) 30 MG tablet Take 1 (one) tablet (30 mg total) by mouth 2 (two) times a day . Taking chlorthalidone (HYGROTON) 25 MG tablet Take 1 (one) tablet (25 mg total) by mouth daily . 90 tablet 1 Taking citalopram (CELEXA) 40 MG tablet Take 1 (one) tablet (40 mg total) by mouth daily . 90 tablet 1 Taking insulin lispro (AdmeLOG,HumaLOG) 100 unit/mL injection Inject up to 150 units once daily via pump . 50 mL 5 Taking INSULIN PUMP CARTRIDGE SUBQ Inject under the skin Use as directed . Taking lamoTRIgine (LAMICTAL) 25 MG tablet Take 1 (one) tablet (25 mg total) by mouth 2 (two) times a day . 60 tablet 2 Taking levETIRAcetam (KEPPRA) 1000 MG tablet Take 1 (one) tablet (1,000 mg total) by mouth 2 (two) times a day . 180 tablet 1 Taking levothyroxine (SYNTHROID, LEVOTHROID) 75 MCG tablet Take 1 (one) tablet (75 mcg total) by mouth once daily . 90 tablet 0 Taking lidocaine (LMX) 4 % cream Apply topically 3 (three) times a day . 90 g 3 Taking lisinopriL (PRINIVIL,ZESTRIL) 40 MG tablet Take 1 (one) tablet (40 mg total) by mouth daily . 90 tablet 1 Taking loratadine (CLARITIN) 10 mg tablet Take 1 (one) tablet (10 mg total) by mouth daily . 90 tablet 1 Taking metFORMIN (GLUCOPHAGE) 1000 MG tablet Take 1 (one) tablet (1,000 mg total) by mouth 2 (two) times a day . 60 tablet 5 Taking metoprolol succinate (TOPROL-XL) 50 MG 24 hr tablet Take 1 (one) tablet (50 mg total) by mouth daily . 90 tablet 1 Taking nortriptyline (PAMELOR) 25 MG capsule Take 1 (one) capsule (25 mg total) by mouth nightly . 90 capsule 1 Taking nystatin (MYCOSTATIN) powder Apply topically 2 (two) times a day . 30 g 1 Taking omeprazole (PRILOSEC) 40 MG capsule Take 1 (one) capsule (40 mg total) by mouth 2 (two) times a day . Taking oxyCODONE-acetaminophen (PERCOCET) 5-325 mg per tablet Take 1 (one) tablet by mouth nightly as needed for pain (Days supply per fill: 30) . 30 tablet 0 Taking As Needed pantoprazole (PROTONIX) 40 MG tablet Take 1 (one) tablet (40 mg total) by mouth daily . 90 tablet 1 Taking pregabalin (LYRICA) 75 MG capsule Take 1 (one) capsule (75 mg total) by mouth 2 (two) times a day (Days supply per fill: 30) . 60 capsule 0 Taking vitamin with Ca-Iron-FA 27-1 mg Tab Take 1 (one) tablet by mouth daily . Taking QUEtiapine (SEROQUEL) 400 MG tablet Take 2 (two) tablets (800 mg total) by mouth nightly . 60 tablet 2 Taking timolol (TIMOPTIC) 0.5 % ophthalmic solution Administer 1 (one) drop into the left eye daily . Taking tiZANidine (Zanaflex) 4 MG tablet Take 2 tabs p.o. nightly . 60 tablet 0 Taking traZODone (DESYREL) 50 MG tablet Take 1 (one) tablet (50 mg total) by mouth nightly as needed . 90 tablet 0 Taking As Needed alcohol swabs PadM Apply 1 (one) Swab. topically 5 (five) times a day Clean area before administering insulin. . 150 each 5 blood sugar diagnostic (glucose blood) strips by Miscellaneous route 3 (three) times a day As a backup to CGM to test blood sugar. One Touch Verio . 100 strip 5 Dexcom G6 Vibrator Operator Misc Use as directed for continuous glucose monitoring . 1 each 0 Dexcom G6 Sensor Simran Use as directed for continuous glucose monitoring change every 10 days . 3 each 11 Dexcom G6 Transmitter Simran Use as directed for continuous glucose monitoring change every 3 months . 1 each 3 ergocalciferol (Vitamin D2) 1,250 mcg (50,000 unit) capsule Take 1 (one) capsule (50,000 Units total) by mouth once a week . 12 capsule 1 glucagon (Gvoke HypoPen 2-Pack) 1 mg/0.2 mL AtIn Inject 0.2 mL (1 mg total) under the skin as needed . 2 mL 1 inhalational spacing device inhaler Use as instructed . 1 each 2 lancets Misc 1 Lancet by Miscellaneous route 3 (three) times a day . 100 each 5 lidocaine-prilocaine (EMLA) cream Apply topically as needed . 30 g 1 loperamide (IMODIUM) 2 mg capsule Take 1 (one) capsule (2 mg total) by mouth as needed for diarrhea (Max dose 7 pills) . 20 capsule 1 miscellaneous medical supply Misc 1 each by Miscellaneous route daily . 100 each 2 Omnipod 5 G6 Pods, Gen 5, Crtg Omnipod Insulin Refill Crtg ondansetron (ZOFRAN-ODT) 4 MG disintegrating tablet Dissolve 1 (one) tablet (4 mg total) on top of tongue every 8 (eight) hours as needed for nausea . 20 tablet 1 ROS: Negative except for HPI above Physical Exam: Patient Vitals for the past 24 hrs: BP Temp Temp src Pulse Resp SpO2 03/28/24 0900 129/76 -- -- 88 12 97 % 03/28/24 0857 -- -- -- -- 14 -- 03/28/24 0813 108/81 -- -- 79 (!) 11 97 % 03/28/24 0742 (!) 96/45 98.4 F (36.9 C) Oral 78 (!) 8 -- 03/28/24 0555 (!) 96/45 -- -- 70 (!) 8 -- 03/28/24 0550 (!) 98/53 -- -- 71 12 -- 03/28/24 0545 (!) 104/54 -- -- 70 (!) 9 -- 03/28/24 0540 100/62 -- -- 78 15 -- 03/28/24 0530 (!) 83/48 -- -- 70 (!) 20 95 % 03/28/24 0515 (!) 70/38 -- -- 60 15 -- 03/28/24 0510 (!) 88/39 -- -- 61 12 -- 03/28/24 0450 (!) 91/47 98.6 F (37 C) Oral 69 (!) 20 94 % 03/28/24 0300 111/63 -- -- 79 18 -- 03/28/24 0016 -- -- -- -- (!) 21 -- 03/28/24 0000 116/76 98.6 F (37 C) Axillary 76 14 94 % 03/27/24 2300 118/75 -- -- 76 12 94 % 03/27/24 2100 (!) 103/55 -- -- 82 12 -- 03/27/242019 -- -- -- -- (!) 23 -- 03/27/24 2000 129/72 98.7 F (37.1 C) Axillary 82 (!) 23 94 % 03/27/24 1815 -- -- -- 82 14 93 % 03/27/24 1800 (!) 96/42 -- -- 79 13 96 % 03/27/24 1730 -- -- -- 83 (!) 11 96 % 03/27/24 1700 123/64 -- -- 82 14 94 % 03/27/24 1630 -- -- -- 82 (!) 9 96 % 03/27/24 1605 -- -- -- -- (!) 10 -- 03/27/24 1601 -- 98.1 F (36.7 C) Oral 82 12 96 % 03/27/24 1600 -- -- -- 82 (!) 8 -- 03/27/24 1530 -- -- -- 83 13 -- 03/27/24 1500 -- -- -- 87 (!) 11 -- 03/27/24 1430 -- -- -- 89 13 -- 03/27/24 1400 -- -- -- 93 (!) 10 -- 03/27/24 1330 -- -- -- 94 12 -- 03/27/24 1323 -- -- -- 94 (!) 10 -- 03/27/24 1300 -- -- -- 96 (!) 11 -- 03/27/24 1230 -- -- -- 96 15 -- 03/27/24 1200 (!) 80/62 -- -- 95 17 97 % 03/27/24 1130 -- -- -- 94 14 98 % 03/27/24 1100 (!) 90/47 -- -- 92 (!) 9 97 % 03/27/24 1041 (!) 107/56 98.8 F (37.1 C) Oral 94 17 97 % 03/27/24 1030 -- -- -- 94 16 94 % 03/27/24 1000 132/83 -- -- (!) 100 15 (!) 89 % 03/27/24 0955 -- -- -- (!) 103 17 (!) 88 % 03/27/24 0942 -- -- -- -- 14 -- 03/27/24 0930 -- -- -- (!) 103 18 (!) 88 % Pain Score: Temp (24hrs), Av.5 F (36.9 C), Min:98.1 F (36.7 C), Max:98.8 F (37.1 C) Labs: Results from last 7 days Lab Units 03/28/24 0304 03/27/24 0434 03/26/24 2306 GLUCOSE mg/dL 281* 161* 333* BUN mg/dL 34* 32* 30* CREATININE mg/dL 2.47* 2.53* 2.52* POTASSIUM mmol/L 5.3* 4.8 4.8 SODIUM mmol/L 137 140 137 CHLORIDE mmol/L 107 110* 106 CALCIUM mg/dL 8.5 8.2* 8.3* PHOSPHORUS mg/dL 4.8* -- -- Lab Results Component Value Date WBC 7.07 03/28/2024 HGB 9.2 (L) 03/28/2024 HCT 29.5 (L) 03/28/2024 MCV 98.7 03/28/2024 PLT 282 03/28/2024 Lab Results Component Value Date CREATININE 2.47 (H) 03/28/2024 BUN 34 (H) 03/28/2024 NA 137 03/28/2024 K 5.3 (H) 03/28/2024 CL 107 03/28/2024 Lab Results Component Value Date PTT 34 06/03/2023 INR 1.0 06/03/2023 Lab Results Component Value Date HGBA1C 9.3 (H) 01/12/2024 Lab Results Component Value Date SEDRATE 62 (H) 03/24/2024 Lab Results Component Value Date CRP 15.1 (H) 03/24/2024 * Cannot find OR log * Imaging: ECG 12- Lead Result Date: 03/25/2024 Sinus tachycardia Possible Anterior infarct , age undetermined Abnormal ECG Confirmed by Maira STEVENS, Inessa ([id number]) on 03/25/2024 8:01:09 AM XR Toe(s) Left 2+ Views Result Date: 03/24/2024 EXAMINATION: XR TOE(S) LEFT 2+ VIEWS EXAM DATE: 03/24/2024 7:57 pm HISTORY: ORDERING SYSTEM PROVIDED HISTORY: pain/infection, TECHNOLOGIST PROVIDED HISTORY: Illness/Other Reason for exam: pain/reoccurring infection Cancer History: u Surgery, RadiationHistory: pacemaker Encounter Type: Initial Additional signs and symptoms: pain/infection ORDERING SYSTEM PROVIDED DIAGNOSIS CODES: COMPARISON: 04/28/2023 TECHNIQUE: AP, lateral and oblique views left toes FINDINGS: New erosive changes of the tip of the tuft of the 1st distal phalanx with overlying soft tissue wound. Soft tissue swelling of the 1st digit. No arthritic changes. Findings suggest osteomyelitis of the tip of the tuft of the 1st distal phalanx. Workstation ID: [id number] The total time spent for this visit was greater than 35 minutes. Greater than 50% of the time was spent in counseling and coordination of care and direct patient management. Cosigned by Floyd Castillo DPM at 03/28/2024 2:06 PM EST Associated attestation - Floyd Castillo DPM - 03/28/2024 2:06 PM EST I have reviewed and agree with the assessment and plan as documented. [facility] [place]GRESS NOTE Assessment and Plan Addie Jean Baptiste is a 48 y.o. female patient of Stephany Pelayo PA-C with history of T2DM, HTN, bipolar disorder, and chronic back pain presented to [facility] on 03/25/2024 with left toe wound. Hypotension, hypovolemic vs iatrogenic from oversedation Acute metabolic encephalopathy 2/2 above Transferred to ICU overnight due to hypotension and lethergy Noted BP 67/53 initially Received 1.5L total IVF and Narcan with improvement in BP No leukocytosis on CBC Additional 500cc IVF over 5 hours Hold home beta kathia Can likely move out of ICU this afternoon vs tomorrow morning Acute kidney injury Cr 1.35 ? 2.53 Due to hypotension IVF as above Daily RFPs, strict I&Os, daily weights Left diabetic toe osteomyelitis P/w worsening left foot big toe pain and swelling Afebrile; normal WBC on admission CRP 15.1 Xray L foot: Findings suggestive of first distal phalanx osteomyelitis IV Zosyn Patient known to podiatry service. Dr. Castillo consulted Pain control Sick sinus syndrome Initially underwent PPM implantation in 2011. In 2017 underwent MRI compatible PPM placement at [facility]. T2DM on insulin pump Diabetic peripheral neuropathy Last A1c 9.9 % in 03/22/2024 Home insulin regimen: insulin pump Pharmacy consulted to continue insulin pump Diabetic diet Consult conservation educator: Admits that she has not been bolusing for her blood sugars with her insulin pump . Hypertension Hyperlipidemia Continue metoprolol and SHAJI inhibitor Continue Lipitor SBP 106 Bipolar disorder Home meds including Celexa, BuSpar, Seroquel and Pamelor continued Seizure disorder Continue home lamictal Obesity Body mass index 47 Discussed dietary and lifestyle modifications Resolved acute medical issues Discharge Planning Medically Stable for Discharge Date: TBD Patient requires continued hospitalization due to: above Discharge Location: TBD Quality Measures DVT Prophylaxis: lovenox Chow Catheter: absent Code Status Full Primary Contact Information Subjective Doing much better today. More awake. Having pain Objective BP (!) 90/47 Pulse 92 Temp 98.8 F (37.1 C) (Oral) Resp (!) 9 Ht 5' 2 Wt 120.5 kg (265 lb 10.5 oz) SpO2 97% BMI 48.59 kg/m Physical Examination General Appearance: alert; well appearing; in no acute distress HEENT: Head- normocephalic; Eyes- normal external eye, hearing intact Cardiovascular: regular rate and rhythm; peripheral edema absent Respiratory: lungs clear to auscultation; without wheezes, rales or rhonchi; on room air Abdomen: soft, non-tender, non-distended Neurological: oriented x 3; normal speech; no focal findings or movement disorder noted Musculoskeletal: no significant deformity or tenderness to palpation. Left foot not assessed this AM due to recent dressing change Skin: normal coloration Psych: normal mood and affect Spiritual Care Progress Note Completed by: Fawn Hinton Person(s) Present During this Visit: Patient Time Spent in Direct Patient Care: 30 Narrative: Visit with Addie. She shared that she was feeling really tired. She has good support from her family. She has 2 children, and 2 grandchildren. Shared that she lives with her son who helps her. Provided emotional support. Provided information regarding IDT services and availability. Rev. Fawn Hinton MDiv, [facility] Staff [employer] Drawer [facility] Patients Response to Pastoral Care: Appeared to be well-engaged Planning for Future Visits: PRN 03/27/24 1040 Visit Background Visit With Patient Visit By Staff [employer] Drawer Visit Progression Introduction Visit Requested By [employer] Drawer Initiated Visit Source [employer] Drawer Initiated Visit Type Inpatient;Rounding Visit Circumstances and Events Routine Visit Visit Length (minutes) 30 Patient's Response to Pastoral Care Appeared to be well-engaged Visit Planning PRN Spiritual Assessment Assessed during this visit Presybeterian Assessment Not assessed during this visit Family assessment provided? Not assessed during this visit Patient Spiritual Needs Assessment Sources of Connection Daughter;Granddaughter;Grandson;So n Belief Practices Not Discussed Coping Mechanisms Family Support Spiritual Diagnosis Disconnected from Sources of Support Facilitated Interventions Active Listening;Explained Role of the [employer] [place] Drawer;Goal Setting Spiritual/Emotional Outcomes Appears less anxious;Appears more calm 0810-Sleeps. Wakens to voice. Drowsy and lethargic but appropriate. Respirations easy. O2 on. Skin warm and dry. Port-a-cath accessed and does not have blood return. Pt states port has not had blood return since admission. Dr. Almanza is aware. Monitor SR with FDAVB, VSS. SL intact to LAC and has blood return. Abdomen soft. Wears attends. Pedal pulses weak, palpable. Assessment completed. Denies pain or discomfort. 0840-Portable CXR done and reviewed by Dr. Almanza. He states to obtain lateral view and order entered by him. 0900-Dr. Hendrix in at bedside. Discussed events overnight and reason for pt transport to ICU. Dr. Hendrix is also aware of lack of blood return with port-a-cath. 0915-Xray here and IV paused. Assisted into w/c and taken to radiology for film. 0940-Returned from radiology and IVF restarted. Pulled up and positioned for comfort. Respirations easy. Declines O2 to be on. Is drowsy but appropriate. Monitor ST. VSS. Given phone per request and is calling family members. States, Can I get my pain pill now? . Explained to pt she received lyrica. States, No. I want my percocet. Given 1 tablet po. No other complaints. 1120-Sleeps. Wakens to voice. Drowsy and lethargic but appropriate. Respirations easy. O2 on. Monitor SR, VSS. IV's infuse well. Assessment unchanged. Talking with family member on phone. 1320-Awake and drowsy. Respirations easy. Monitor SR, FDAVB. VSS. IV SL'ed at this time. Denies needs. 1405-Sleeps. No distress noted. 1600-Call light on repeatedly for various needs, including water, lights in room, and personal belongings. Pt states has pain at 10 of 10 in left foot but is drowsy and lethargic. It is noted pt recently had visit from family member and they brought her [employer] to eat and left. Respirations easy. O2 on. Monitor SR. VSS. SL intact. Port-a-cath accessed for IVF as ordered. ATB infuses. Given prn percocet. Assessment unchanged. No acute distress noted. 1700-Sleeps. 1815-Rests quietly watching TV. Respirations easy. O2 on. Monitor SR with FDAVB, VSS. Video chatting with family. Denies needs. [facility] INPATIENT PROGRESS NOTE ASSESSMENT AND PLAN: Diabetes T2 with neuropathy Hyperglycemia CKD Stage III H/o Seizures left hallux ulceration Left foot cellulitis suspected Osteomyelitis The patient was seen and evaluated and discussed findings with patient. Ulceration of the right hallux distal tuft: The patient's ulceration of the right hallux distal is fibrogranular base, wound measurement is a 15 x 14 x 3 mm Hernandez grade 2 ulceration does not probe to bone tunnel or track. Applied a Betadine gauze bandage dressing instructed on daily dressing changes. Suspected osteomyelitis right hallux distal tuft: I did review the patient's x-rays today and distal. I question how extensive for how aggressive any sort of osteomyelitis may be present in this toe necessitating amputation during this admission. The patient left to continue to save her toe and so we will pursue an oral antibiotic treatment over the next months and pending culture results. - OR Plans: none - ABX: Vanc/Zosyn per medicine cultures pending - DSG: betadine wet to dry daily. - WBS: even weightbearing right foot - XR reviewed - suspected OM left hallux distal tuft - DISPO: I will reassess the patient on Thursday once cultures are finalized and discuss antibiotic treatment in the outpatient setting. Answered questions and rediscussed plan at length with the patient and family if present. Discussed plan with other teams' providers. We discussed with the patient the pathology, etiology, pathogenesis, current condition management plan and disposition. This was discussed at various times during the day with representatives from nursing, pharmacy, case management, social work, and therapies as needed. We discussed with the patient he etiology of problems listed in the Assessment and Plan section, as well as risk factors, natural course, prognosis, treatment options with associated risks and benefits. Importance of compliance with the treatment plan was emphasized. I explained test results to date, as well as additional diagnostic recommendations. I explained discharge plans, including the required post-hospitalization care, treatment, and services. All questions were answered and ample time was provided. PATIENT VOICES NO COMPLAINTS, AFEBRILE, PAIN IS SAME LABS: Results from last 7 days Lab Units 03/26/24 0352 03/25/24 0551 03/24/24 2253 SODIUM mmol/L -- 138 134* POTASSIUM mmol/L -- 4.3 4.6 CHLORIDE mmol/L -- 105 97* BUN mg/dL -- 23 24 CREATININE mg/dL 1.67* 1.35* 1.44* GLUCOSE mg/dL -- 345* 646* CALCIUM mg/dL -- 8.3* 9.3 Results from last 7 days Lab Units 03/25/24 0550 03/24/24 2253 WBC K/mcL 8.66 9.56 HGB g/dL 10.2* 12.5 HEMOGLOBIN BG g/dL -- 13.0 HEMATOCRIT, CALCULATED % -- 40.0 HCT % 29.7* 37.6 PLT K/mcL 297 371 MONOS% % -- 4.5 EOSIN% % -- 3.5 Results from last 7 days Lab Units 03/24/24 2253 ALK PHOS U/L 139 BILIRUBIN TOTAL mg/dL 0.5 BILIRUBIN DIRECT mg/dL <0.2 TOTAL PROTEIN g/dL 8.1* ALT U/L 16 AST U/L 16 [facility] [place] PROGRESS NOTE Assessment and Plan Addie Jean Baptiste is a 48 y.o. female patient of Stephany Pelayo PA-C with history of T2DM, HTN, bipolar disorder, and chronic back pain presented to [facility] on 03/25/2024 with left toe wound. Left diabetic toe osteomyelitis P/w worsening left foot big toe pain and swelling Afebrile; normal WBC on admission CRP 15.1 Xray L foot: Findings suggestive of first distal phalanx osteomyelitis IV Zosyn and vancomycin Patient known to podiatry service. Dr. Castillo consulted Pain control CKD stage III Likely due to poorly controlled hypertension Serum creatinine 1.44 on admission. Has been 1.3-1.6 range since December Continue to monitor. Avoid nephrotoxic medication as able Sick sinus syndrome Initially underwent PPM implantation in 2011. In 2016 underwent MRI compatible PPM placement at [facility]. T2DM on insulin pump Diabetic peripheral neuropathy Last A1c 9.9 % in 03/22/2024 Home insulin regimen: insulin pump Pharmacy consulted to continue insulin pump Diabetic diet Consult conservation educator: Admits that she has not been bolusing for her blood sugars with her insulin pump . Hypertension Hyperlipidemia Continue metoprolol and SHAJI inhibitor Continue Lipitor SBP 106 Bipolar disorder Home meds including Celexa, BuSpar, Seroquel and Pamelor continued Seizure disorder Continue home lamictal Obesity Body mass index 47 Discussed dietary and lifestyle modifications Resolved acute medical issues Discharge Planning Medically Stable for Discharge Date: TBD Patient requires continued hospitalization due to: above Discharge Location: TBD Quality Measures DVT Prophylaxis: lovenox Chow Catheter: absent Code Status Full Primary Contact Information Subjective Discussed POC Objective BP 106/72 (BP Location: Right arm, Patient Position: Lying) Pulse 85 Temp 97.5 F (36.4 C) (Oral) Resp 14 Ht 5' 2 Wt 131.3 kg (289 lb 7.4 oz) SpO2 98% BMI 52.94 kg/m Physical Examination General Appearance: alert; well appearing; in no acute distress HEENT: Head- normocephalic; Eyes- normal external eye, hearing intact Cardiovascular: regular rate and rhythm; peripheral edema absent Respiratory: lungs clear to auscultation; without wheezes, rales or rhonchi; on room air Abdomen: soft, non-tender, non-distended Neurological: oriented x 3; normal speech; no focal findings or movement disorder noted Musculoskeletal: no significant deformity or tenderness to palpation. Left foot not assessed this AM due to recent dressing change Skin: normal coloration Psych: normal mood and affect PHARMACOTHERAPY NOTE: Antimicrobial Therapy Initiation Assessment / Plan: Patient will be initiated on a maintenance dose of vancomycin 1250 mg q24h following a one-time loading dose of vancomycin 2500 mg for Diabetic Foot Infection. Vancomycin monitoring goal AUC 400-600. Will obtain level when at steady state or when clinically appropriate. Current regimen will produce a predicted AUC of 516 mcg h/mL and trough of 14.9 mg/L. Pharmacy will continue to follow, monitor serum creatinine levels and urine output (if available) daily, order levels, and make adjustments as clinically appropriate. Please call pharmacy with questions. Subjective: Addie Jean Baptiste is a 48 y.o. female initiated on antimicrobial therapy for DFI. Current antibiotic regimen includes vancomycin and Zosyn. Past medical history reviewed. Past Medical History: Diagnosis Date Anxiety Bipolar 1 disorder (HCC) Bipolar disorder (HCC) Chronic back pain Coronary artery disease Depression Diabetes mellitus (HCC) Hypertension MRSA (methicillin resistant Staphylococcus aureus) Pacemaker Seizures (HCC) Stroke ([facility]) Objective: Estimated Creatinine Clearance: 38.6 mL/min (A) (by C-G formula based on SCr of 1.44 mg/dL (H)). Patient Tmax (last 24 hours): 97.7 F Micro: 03/25 Wound Culture: collected, pending results (ulcer from first left toe) 03/25 Urine Culture: collected, pending results (clean catch) 03/25 Blood Cultures: collected, pending results (x2) Ht Readings from Last 1 Encounters: 03/25/24 5' 2 (157.5 cm) Wt Readings from Last 1 Encounters: 03/25/24 131.1 kg (289 lb 0.4 oz) ideal body weight Labs include: WBC (K/mcL) Date Value 03/24/2024 9.56 12/09/2014 5.95 BUN (mg/dL) Date Value 03/24/2024 24 12/09/2014 40 (H) Creatinine (mg/dL) Date Value 03/24/2024 1.44 (H) 12/09/2014 5.50 (H) Pharmacist: Floyd Rubin RPh,PharmD Contact Number: [phone] Spoke with MD regarding right chest port. Order received to draw labs from port. Spoke with MD regarding pt's home insulin pump (omnipod) and current blood glucose level. Blood sugar currently 469. MD was made aware. SSI noted to be ordered. MD states we will have pharmacy obtain home pump information prior to administering SSI coverage. Pharmacy on floor to verify pump/home insulin at this time. Care continues. Pt arrived to unit. Resting in bed without sign of distress. Care continues. documented in this encounter [facility] 04-04-2024 Miscellaneous Notes Problem: Actual or potential alteration in health Goal: Absence of healthcare acquired conditions Outcome: Partially Met Goal: Knowledge of Interdisciplinary Plan of Care Outcome: Partially Met Goal: Knowledge of Enviroment Outcome: Partially Met Problem: Pain Goal: Reduced pain sensation Outcome: Partially Met Goal: Control of acute pain to acceptable level Outcome: Partially Met Goal: Able to cope with pain Outcome: Partially Met Goal: Able to achieve maximum level of physical functioning Outcome: Partially Met Goal: Able to achieve maximum level of psychosocial functioning Outcome: Partially Met Problem: Falls, Risk of Goal: Absence of falls Outcome: Partially Met Goal: Absence of physical injury Outcome: Partially Met Problem: Pressure Injury, Risk of Goal: Absence of pressure injury Outcome: Partially Met Problem: Actual or potential alteration in health Goal: Absence of healthcare acquired conditions Outcome: Partially Met Goal: Knowledge of Interdisciplinary Plan of Care Outcome: Partially Met Goal: Knowledge of Enviroment Outcome: Partially Met Problem: Actual or potential alteration in health Goal: Absence of healthcare acquired conditions Outcome: Not Met Goal: Knowledge of Interdisciplinary Plan of Care Outcome: Not Met Goal: Knowledge of Enviroment Outcome: Not Met Problem: Pain Goal: Reduced pain sensation Outcome: Not Met Goal: Control of acute pain to acceptable level Outcome: Not Met Goal: Able to cope with pain Outcome: Not Met Goal: Able to achieve maximum level of physical functioning Outcome: Not Met Goal: Able to achieve maximum level of psychosocial functioning Outcome: Not Met Problem: Falls, Risk of Goal: Absence of falls Outcome: Not Met Goal: Absence of physical injury Outcome: Not Met Problem: Pressure Injury, Risk of Goal: Absence of pressure injury Outcome: Not Met Operative Note Patient Name: Addie Jean Baptiste : 1975 (48 y.o.) Date of Service: 04/01/2024 CSN: [id number] Procedure(s): AMPUTATION LEFT HALLUX IPJ Pre-Operative Diagnoses: * osteomyelitis Post-Operative Diagnoses: * Same as Pre-Op Diagnosis Surgeons and Role: * Shameka Castillo DPM - Primary Anesthesiologist: Mk [place] MD STEEL [employer]ANE OPERATOR: Monique Palomares CRNA [employer] Press Operator: Agueda Hunt RN Scrub Person: Monique Cheatham ST Operative findings: Proximal phalanx bone left hallux Intra and immediate post-operative complications: none Type of anesthesia used: General, Monitor Anesthesia Care Estimated blood loss: 5 mL Estimated urine output: Specimen(s): ID Type Source Tests Collected by Time Destination 1 : left hallux margin Swab Toe, Left SURGICAL SITE AEROBIC CULTURE Shameka Castillo DPM 04/01/2024 1707 2 : distal phallnx Bone Toe, Left BONE AEROBIC & ANAEROBIC CULTURE Shameka Castillo DPM 04/01/2024 1708 A : left hallux Tissue Amputation, Toe, Left TISSUE EXAM Shameka Castillo DPM 04/01/2024 1707 Implant(s): * No implants in log * Drain(s): * No LDAs found * Wound(s): Wound 05/10/23 Great Toe Anterior;Left (Active) Reassessment Unchd 03/31/24 0608 Dressing Status Clean;Dry;Intact 04/01/24 0821 Wound Length (cm) 1 cm 03/29/24 0929 Wound Width (cm) 1 cm 03/29/24 0929 Wound Surface Area (cm^2) 1 cm^2 03/29/24 0929 Area % Change 0 03/29/24 09 Wound Progress Initial exam 03/29/24 09 Drainage Amount Scant 03/31/241933 Drainage Description Red 03/31/241933 Odor None 03/31/241933 Wound Bed Characteristics Red;Scab 03/31/241933 Gema-wound Assessment Temperature WNL 03/31/241933 Cleansed Betadine 03/31/241933 Primary Dressing Dry gauze 03/31/241933 Secondary Dressing Dry gauze 03/31/241933 Compression Dressing Other (Comment) 03/31/241933 Wound 01/13/24 Abdomen LLQ (Active) Reassessment Unchd 03/31/24 0608 Dressing Status Clean;Intact;Dry 04/01/24 0821 Wound Length (cm) 1 cm 03/25/24 1030 Wound Width (cm) 1 cm 03/25/24 1030 Wound Surface Area (cm^2) 1 cm^2 03/25/24 1030 Area % Change 0 03/25/24 1030 Wound Progress Initial exam 03/25/24 1030 Drainage Amount Scant 03/25/24 1030 Drainage Description Fresh blood 03/25/24 1030 Odor None 03/25/24 1030 Wound Bed Characteristics Bleeding 03/25/24 1030 Gema-wound Assessment Red;Intact;Dry 03/25/24 1030 Treatments Other (Comment) 03/31/24 06 Cleansed Chlorhexadine 03/31/24 06 Primary Dressing Adhesive bandage 03/31/24757 Secondary Dressing Adhesive bandage 03/31/24757 Compression Dressing Not Applicable 03/30/24 192 Wound 04/01/24 Incision Toe Left (Active) Wound Closure Sutures 03/24/24 0005 Indications: Is a type II diabetic female with multiple comorbidities including morbid obesity, chronic kidney disease stage III, history of seizures, uncontrolled diabetes with chronic ulceration osteomyelitis of the distal tuft of left hallux. I reviewed her CT of the left hallux. My personal interpretation of the CT of the left foot from 03/31/2024 including my clinical correlation suggest osteomyelitis as the distal phalanx bone is appreciable through the left hallux ulceration. For this reason we will proceed with amputation left hallux distal phalanx. I discussed the patient further conservative surgical options with family present in the room, Informed consent was obtained signed and saved in the chart. Procedure: The patient was brought to the operating room and placed on the operating room table in supine position. A timeout was called to ensure the correct patient procedure and operative site. MAC anesthesia was initiated and a local infiltrative block was administered to the operative ankle. The foot was prepped and draped in the usual sterile manner. The foot was exsanguinated with an Esmarch tourniquet. Attention was directed to the LEFT great toe. A fishmouth shaped incision was made distal to the interphalangeal joint. Meticulous dissection performed on the level of the bone taking care to preserve neurovascular structures. Using a combination of blunt and sharp dissection the distal phalanx was dissected free from the surrounding tissue and disarticulated from the interphalangeal joint. On the back table of the distal phalanx bone wa dissected and a bone culture was taken for culture and sensitivities. The remainder the bone was sent for pathologic evaluation. Returning to the foot; all tendon slips were transected the most proximal point the site was flushed with copious amounts of normal sterile saline via Pulsavac. The skin was remodeled and a closure with 2-0 Prolene suture was performed. Tourniquet was released and a hyperemic response was noted all skin edges. The foot was cleansed and dried. A sterile Betadine postoperative dressing was applied for foot. The patient tolerated the procedure well and was transferred to PACU vital signs stable and vascular status intact Shameka Castillo DPM 04/01/2024 5:23 PM Problem: Actual or potential alteration in health Goal: Absence of healthcare acquired conditions Outcome: Partially Met Goal: Knowledge of Interdisciplinary Plan of Care Outcome: Partially Met Goal: Knowledge of Enviroment Outcome: Partially Met Problem: Pain Goal: Reduced pain sensation Outcome: Partially Met Goal: Control of acute pain to acceptable level Outcome: Partially Met Goal: Able to cope with pain Outcome: Partially Met Goal: Able to achieve maximum level of physical functioning Outcome: Partially Met Goal: Able to achieve maximum level of psychosocial functioning Outcome: Partially Met Problem: Falls, Risk of Goal: Absence of falls Outcome: Partially Met Goal: Absence of physical injury Outcome: Partially Met Problem: Actual or potential alteration in health Goal: Absence of healthcare acquired conditions Outcome: Partially Met Goal: Knowledge of Interdisciplinary Plan of Care Outcome: Partially Met Goal: Knowledge of Enviroment Outcome: Partially Met Problem: Pain Goal: Reduced pain sensation Outcome: Partially Met Goal: Control of acute pain to acceptable level Outcome: Partially Met Goal: Able to cope with pain Outcome: Partially Met Goal: Able to achieve maximum level of physical functioning Outcome: Partially Met Goal: Able to achieve maximum level of psychosocial functioning Outcome: Partially Met Problem: Falls, Risk of Goal: Absence of falls Outcome: Partially Met Goal: Absence of physical injury Outcome: Partially Met Problem: Pressure Injury, Risk of Goal: Absence of pressure injury Outcome: Partially Met I had an opportunity speak with Dr. Floyd Castillo about the patient's case. I then did speak personally with the patient later that evening and discussed with her an option to amputate the toe at the IPJ level. Patient is agreeable and we will not perform the MRI. CT without contrast ordered Plan for amputation left hallux IPJ tomorrow evening. N.p.o. at midnight Infectious Disease Sign-Off Indication: DFI Antibiotic: cefadroxil PO Dose: 500 mg BID (adjusted for crcl) Duration: 14 days from debridement Stop Date: 04/08/2024 Labs: N/A Imaging: N/A ID Follow-up: With podiatry Primary please provide PO prescriptions with discharge bundle. Thank you. ID service will sign off at this time. Please contact with any questions/concerns or if patient needs to be reassessed. Estrella Anthony CNP [facility] - Infectious Diseases Office: [phone] Attempted to call report and phone was ringing then a busy signal/. I will attempt call again Problem: Actual or potential alteration in health Goal: Absence of healthcare acquired conditions Outcome: Partially Met Goal: Knowledge of Interdisciplinary Plan of Care Outcome: Partially Met Goal: Knowledge of Enviroment Outcome: Partially Met Problem: Pain Goal: Reduced pain sensation Outcome: Partially Met Goal: Control of acute pain to acceptable level Outcome: Partially Met Goal: Able to cope with pain Outcome: Partially Met Goal: Able to achieve maximum level of physical functioning Outcome: Partially Met Goal: Able to achieve maximum level of psychosocial functioning Outcome: Partially Met Problem: Falls, Risk of Goal: Absence of falls Outcome: Partially Met Goal: Absence of physical injury Outcome: Partially Met Problem: Pressure Injury, Risk of Goal: Absence of pressure injury Outcome: Partially Met Attempted to call all 3 family members on contact list with no response, Pt updated. Called and left a message for daughter Mely to inform her Addie was transferred to ICU. Informed her she could call her mom to get more information . Problem: Pain Goal: Able to achieve maximum level of physical functioning Outcome: Partially Met Problem: Pain Goal: Reduced pain sensation Outcome: Partially Met Notified [facility]Dr Brar that patient's BP was 71/46 with slurred speech and Blood sugar of 348. Dr Brar came to the floor and seen patient. See new orders. [facility] Significant Event Note Reason for Call: Hypotension Objective BP (!) 71/46 Pulse 98 Temp 97.8 F (36.6 C) (Oral) Resp 16 Ht 5' 2 Wt 131.3 kg (289 lb 7.4 oz) SpO2 90% BMI 52.94 kg/m Physical Examination General Appearance: Lethargic, ill appearing, and in no acute distress Cardiovascular: regular rate and rhythm; normal S1, S2; no murmurs, rubs, clicks or gallops; no peripheral edema Respiratory: lungs clear to auscultation; without wheezes, rales or rhonchi Abdomen: soft, non-tender, non-distended; positive bowel sounds Neurological: Lethargic, mild slurred speech, oriented x 3, ; no focal findings or movement disorder noted Providers present: Dr. Brar Assessment: Opioid overdose Hypotension Hypoxia Hyperglycemia SOLO on CKD Received nursing communication stating that patient's blood pressure was 71/36; patient received Percocet and baclofen around 2100 Previous vital signs, heart rate 98, respiratory rate 16, blood pressure 128/72, SpO2 97% on room air around 1999 Patient assessed at bedside, repeat blood pressure 67/53, RR 6-8/min, spo2 90% Most recent labs reviewed, noted that creatinine increased from 1.35-1.67 in the last 24-hours, hyperglycemia of 328 at 2230 Treatment Plan: Given Narcan IV-repeat blood pressure 77/40 3:08 minutes Ordered 1 L NS bolus over 60 minutes Ordered 10 units lispro subcu x 1 Will check blood pressure every 15 minutes to determine resolution and/or next steps Check BMP and BHB stat, rule out DKA Update 12:18 AM Patient given 1L NS bolus, BP 90/61 BMP shows bicarb of 20, AG of 16, BHB <0.1 -Will order an additional bolus of 500cc NS/61 min Update 5:10 AM Received nursing com stating patient awake, with BP 88/54 Will check LA Will give an additional 500cc NS bolus x1 Will transfer to intermediate floor for closer monitoring I spent 30 minutes providing critical care services independent of procedures and other care providers. My time managing this critically ill patient included review of interval history, laboratories, radiology and consultation reports; performing a physical examination; discussing patient with the care team and managing life sustaining therapies to prevent imminent clinical deterioration. John Brar MD 03/27/24, 12:18 AM Problem: Actual or potential alteration in health Goal: Absence of healthcare acquired conditions Outcome: Partially Met Goal: Knowledge of Interdisciplinary Plan of Care Outcome: Partially Met Goal: Knowledge of Enviroment Outcome: Partially Met Problem: Pain Goal: Reduced pain sensation Outcome: Partially Met Goal: Control of acute pain to acceptable level Outcome: Partially Met Goal: Able to cope with pain Outcome: Partially Met Goal: Able to achieve maximum level of physical functioning Outcome: Partially Met Goal: Able to achieve maximum level of psychosocial functioning Outcome: Partially Met Problem: Falls, Risk of Goal: Absence of falls Outcome: Partially Met Goal: Absence of physical injury Outcome: Partially Met Hyperglycemia - admitting glucose 646 HgbA1c 9.9 Consult conservation educator Lactic acidosis LA 3.0 - 2.1 IVF in the ED Problem: Actual or potential alteration in health Goal: Absence of healthcare acquired conditions Outcome: Partially Met Goal: Knowledge of Interdisciplinary Plan of Care Outcome: Partially Met Note: Patient educated on plan of care for the day. Goal: Knowledge of Enviroment Outcome: Partially Met Problem: Pain Goal: Reduced pain sensation Outcome: Partially Met Note: Patient educated on pharmacological and non-pharmacological interventions for pain; rates pain 8/10 to left great toe; PRN medications given Goal: Control of acute pain to acceptable level Outcome: Partially Met Goal: Able to cope with pain Outcome: Partially Met Goal: Able to achieve maximum level of physical functioning Outcome: Partially Met Goal: Able to achieve maximum level of psychosocial functioning Outcome: Partially Met Problem: Falls, Risk of Goal: Absence of falls Outcome: Partially Met Note: Patient educated on interventions to prevent falls; call light within reach, overbed table at side, non-skid socks in place, reinforced need to call for assistance and bed exit alarm active Goal: Absence of physical injury Outcome: Partially Met Problem: Actual or potential alteration in health Goal: Absence of healthcare acquired conditions Outcome: Partially Met Goal: Knowledge of Interdisciplinary Plan of Care Outcome: Partially Met Goal: Knowledge of Enviroment Outcome: Partially Met Problem: Pain Goal: Reduced pain sensation Outcome: Partially Met documented in this encounter [facility] 04-03-2024 Note [facility] 04-02-2024 Note [facility] 04-01-2024 Note [facility] 04-01-2024 Note [facility] 04-01-2024 Note [facility] 03-31-2024 Note [facility] 03-31-2024 Consult note Associated Order (s): IP CONSULT TO CARE MANAGEMENT Care Management Consult Note Date: 03/31/2024 Time: 11:38 AM Patient Name: Addie Jean Baptiste Date of : 1975 Reason for Consult: Discharge Plan: D/C Disposition: Home Health Care Services Related to Current Admission?: Yes Final D/C Agency/Destination: (gave list, waiting for choice and recommendation for home health) How did you provide the Post Acute Choices: Paper copy given HME: None Options Reviewed: List provided Reason for Choice: Patient/Family preference Plan A: Home Health Care Services Plan A : Post Acute Patient Choice 1: (gave list, will wait to see if recommended for home health and then choice) Plan B: Home Discharging Transportation Plan: Transportation Type: Auto Discharge Plan Status: Visited with Addie at bedside, no family or friends were present during my visit. Addie stated she lives with her son and daughter in law, Addie said she feels they are supportive and she feels safe in the home. Addie does not drive, her daughter in law drives her to appointments, errands and such, and family will transport home at discharge. Discussed [facility] concerns, Addie stated she did not need any financial resource information at this time. Addie has a cane, bedside commode and hospital bed at home. She does not anticipate needing any additional equipment at this time. Addie shared she has had several falls in the past 6 months. Discussed going home with home health for nursing and wound care, gave Addie a list of home health agencies to choose from. Addie shared she has a next door neighbor who is an EMT who has been assisting with her toe wound and will be able to assist with wound care when she goes home with family. Will need to place the home health order once a home health agency is chosen. Plan A: home with home health Plan B: SW will remain available to assist with any discharge needs that may arise. Assessment and Background Information: Living Arrangements: Children Caregiver Identified: No Support Systems: Children, Family members Assistance Needed: some at baseline Type of Residence: Private residence Prior to Admission Home Care Services: No Patient expects to be discharged to:: home Does the patient need discharge transport arranged?: No Current Home Equipment: Cane, 07/23 Commode, Hospital bed Physical Therapy PHYSICAL THERAPY SCREEN Patient was screened by Physical Therapy. Upon review of the chart and discussion with the nurse, no skilled Physical Therapy intervention is indicated. Order discontinued at this time. Associated Order(s): Inpatient consult to Infectious Diseases INFECTIOUS DISEASE CONSULT NOTE ASSESSMENT: Addie Jean Baptiste is a 48 y.o. female has a past medical history of Anxiety, Bipolar 1 disorder ([facility]), Chronic back pain, Chronic kidney disease, stage 3 unspecified ([facility]), Coronary artery disease, Depression, Diabetes mellitus ([facility]), Hypertension, MRSA (methicillin resistant Staphylococcus aureus), Pacemaker, Seizures ([facility]), and Stroke ([facility]). Left DFI with ?OM: podiatry following with no plans for operative management. S/p bedside debridement (03/25) Positive urine culture SOLO DM Med-port in place Pacemaker in place Morbid Obesity, Body mass index is 49.84 kg/m . Estimated Creatinine Clearance: 33.3 mL/min (A) (by C-G formula based on SCr of 1.67 mg/dL (H)). RECOMMENDATIONS: Diagnostics: CXR (03/27) negative US renal/bladder (03/27) negative XR toes (03/24) Findings suggest osteomyelitis of the tip of the tuft of the 1st distal phalanx. Therapeutics: See sign off note from the same date Microbiology Reviewed: Bcx (03/25) no growth after 5 days Wcx (03/25) no growth after 5 days Wcx (03/25) MSSA w/ no WBCs on stain Ucx (03/25) e coli [50k-100k CFU/mL) Additional Labs Reviewed: WBC 6.9 Hgb 9.4 Platelets 263 Cr 1.67 Case discussed with: Podiatry attending and FRIDA I will continue to follow. Please call with questions. The patient has been either seen or discussed with Dr. Bean Anthony CNP [facility] - Infectious Diseases Office: [phone] Inpatient consult to Infectious Diseases Consult performed by: Estrella Anthony CNP Consult ordered by: Leticia Rajput MD Reason for consult: osteo big toe Chief Complaint: Toe pain HPI: Addie Jean Baptiste is a 48 y.o. female has a past medical history of Anxiety, Bipolar 1 disorder ([facility]), Chronic back pain, Chronic kidney disease, stage 3 unspecified ([facility]), Coronary artery disease, Depression, Diabetes mellitus ([facility]), Hypertension, MRSA (methicillin resistant Staphylococcus aureus), Pacemaker, Seizures ([facility]), and Stroke ([facility]). . She presented on 03/24/2024 with toe pain. Patient has had a recurring wound to the distal aspect of the left great toe over the last 5 years. She says 5 years ago she was walking and believes it may be related to her shoes. She does not wear diabetic shoes. She states that the wound will come and go. The more she walks the more recurrence issues she has. States about a week ago the wound developed and she started to have redness and swelling of the toe that was bleeding. She came to the hospital mostly because she was concerned because of the discomfort she was experiencing. She denies drinking any fevers chart chills. No diaphoresis. No lightheadedness dizziness chest pain shortness of breath cough or other symptoms prior to onset of the wound. She has no reported urinary symptoms. Since being hospitalized she states that she has developed some diarrhea. She had 3 liquid stools last night to today. No blood in her stool. She states that she is not having any associate abdominal discomfort with this. Today she is overall feeling well and awaiting final plans from podiatry. Review of Systems Review of Systems Constitutional: Negative for fever. HENT: Negative for congestion. Eyes: Negative for visual disturbance. Respiratory: Negative for chest tightness and shortness of breath. Cardiovascular: Negative for chest pain and palpitations. Gastrointestinal: Negative for abdominal pain. Genitourinary: Negative for dysuria. Musculoskeletal: Positive for arthralgias. Negative for back pain. Skin: Positive for color change and wound. Negative for rash. Neurological: Negative for headaches. All other systems reviewed and are negative. Past Medical History: Diagnosis Date Anxiety Bipolar 1 disorder (HCC) Chronic back pain Chronic kidney disease, stage 3 unspecified (HCC) Coronary artery disease Depression Diabetes mellitus (HCC) Hypertension MRSA (methicillin resistant Staphylococcus aureus) Pacemaker Seizures (HCC) Stroke (HCC) Past Surgical History: Procedure Laterality Date CHOLECYSTECTOMY FOOT SURGERY HYSTERECTOMY ORTHOPEDIC SURGERY left foot surgery PACEMAKER INSERTION Social History Socioeconomic History Marital status: Tobacco Use Smoking status: Former Current packs/day: 1.00 Average packs/day: 1 pack/day for 18.3 years (18.3 ttl pk-yrs) Types: Cigarettes Start date: 09/30/2014 Passive exposure: Current Smokeless tobacco: Never Tobacco comments: Vaping 6 mg nicotine Vaping Use Vaping status: Every Day Substances: Nicotine, Flavoring Devices: Pre-filled or refillable cartridge Substance and Sexual Activity Alcohol use: No Alcohol/week: 0.0 standard drinks of alcohol Drug use: Yes Types: Marijuana Comment: smoking as needed, last use thursday night Social Drivers of Health Financial Resource Strain: Medium Risk (01/13/2024) Overall Financial Resource Strain (CARDIA) Difficulty of Paying Living Expenses: Somewhat hard Food Insecurity: No Food Insecurity (03/25/2024) Hunger Vital Sign Worried About Running Out of Food in the Last Year: Never true Ran Out of Food in the Last Year: Never true Recent Concern: Food Insecurity - Food Insecurity Present (01/12/2024) Hunger Vital Sign Worried About Running Out of Food in the Last Year: Sometimes true Ran Out of Food in the Last Year: Sometimes true Transportation Needs: No Transportation Needs (03/25/2024) PRAPARE - Transportation Lack of Transportation (Medical): No Lack of Transportation (Non-Medical): No Housing Stability: Low Risk (03/25/2024) Housing Stability Vital Sign Unable to Pay for Housing in the Last Year: No Number of Times Moved in the Last Year: 0 Homeless in the Last Year: No Recent Concern: Housing Stability - High Risk (01/12/2024) Housing Stability Vital Sign Unable to Pay for Housing in the Last Year: Yes Number of Times Moved in the Last Year: 1 Homeless in the Last Year: No Family History Problem Relation Age of Onset Seizures Mother Diabetes Father Hypertension Father Diabetes type II Father Medications Prior to Admission Medication Sig Dispense Refill Last Dose/Taking albuterol (PROVENTIL) 2.5 mg /3 mL (0.083 %) nebulizer solution Take 3 mL (2.5 mg total) by nebulization every 6 (six) hours as needed for wheezing or shortness of breath . 75 mL 3 Taking As Needed albuterol 90 mcg/actuation inhaler Inhale 1 (one) puff every 4 to 6 hours as needed for shortness of breath or wheezing . 18 g 3 Taking As Needed atorvastatin (LIPITOR) 40 MG tablet Take 1 (one) tablet (40 mg total) by mouth nightly . 90 tablet 0 Taking busPIRone (BUSPAR) 30 MG tablet Take 1 (one) tablet (30 mg total) by mouth 2 (two) times a day . Taking chlorthalidone (HYGROTON) 25 MG tablet Take 1 (one) tablet (25 mg total) by mouth daily . 90 tablet 1 Taking citalopram (CELEXA) 40 MG tablet Take 1 (one) tablet (40 mg total) by mouth daily . 90 tablet 1 Taking insulin lispro (AdmeLOG,HumaLOG) 100 unit/mL injection Inject up to 150 units once daily via pump . 50 mL 5 Taking INSULIN PUMP CARTRIDGE SUBQ Inject under the skin Use as directed . Taking lamoTRIgine (LAMICTAL) 25 MG tablet Take 1 (one) tablet (25 mg total) by mouth 2 (two) times a day . 60 tablet 2 Taking levETIRAcetam (KEPPRA) 1000 MG tablet Take 1 (one) tablet (1,000 mg total) by mouth 2 (two) times a day . 180 tablet 1 Taking levothyroxine (SYNTHROID, LEVOTHROID) 75 MCG tablet Take 1 (one) tablet (75 mcg total) by mouth once daily . 90 tablet 0 Taking lidocaine (LMX) 4 % cream Apply topically 3 (three) times a day . 90 g 3 Taking lisinopriL (PRINIVIL,ZESTRIL) 40 MG tablet Take 1 (one) tablet (40 mg total) by mouth daily . 90 tablet 1 Taking loratadine (CLARITIN) 10 mg tablet Take 1 (one) tablet (10 mg total) by mouth daily . 90 tablet 1 Taking metFORMIN (GLUCOPHAGE) 1000 MG tablet Take 1 (one) tablet (1,000 mg total) by mouth 2 (two) times a day . 60 tablet 5 Taking metoprolol succinate (TOPROL-XL) 50 MG 24 hr tablet Take 1 (one) tablet (50 mg total) by mouth daily . 90 tablet 1 Taking nortriptyline (PAMELOR) 25 MG capsule Take 1 (one) capsule (25 mg total) by mouth nightly . 90 capsule 1 Taking nystatin (MYCOSTATIN) powder Apply topically 2 (two) times a day . 30 g 1 Taking omeprazole (PRILOSEC) 40 MG capsule Take 1 (one) capsule (40 mg total) by mouth 2 (two) times a day . Taking oxyCODONE-acetaminophen (PERCOCET) 5-325 mg per tablet Take 1 (one) tablet by mouth nightly as needed for pain (Days supply per fill: 30) . 30 tablet 0 Taking As Needed pantoprazole (PROTONIX) 40 MG tablet Take 1 (one) tablet (40 mg total) by mouth daily . 90 tablet 1 Taking pregabalin (LYRICA) 75 MG capsule Take 1 (one) capsule (75 mg total) by mouth 2 (two) times a day (Days supply per fill: 30) . 60 capsule 0 Taking vitamin with Ca-Iron-FA 27-1 mg Tab Take 1 (one) tablet by mouth daily . Taking QUEtiapine (SEROQUEL) 400 MG tablet Take 2 (two) tablets (800 mg total) by mouth nightly . 60 tablet 2 Taking timolol (TIMOPTIC) 0.5 % ophthalmic solution Administer 1 (one) drop into the left eye daily . Taking tiZANidine (Zanaflex) 4 MG tablet Take 2 tabs p.o. nightly . 60 tablet 0 Taking traZODone (DESYREL) 50 MG tablet Take 1 (one) tablet (50 mg total) by mouth nightly as needed . 90 tablet 0 Taking As Needed alcohol swabs PadM Apply 1 (one) Swab. topically 5 (five) times a day Clean area before administering insulin. . 150 each 5 blood sugar diagnostic (glucose blood) strips by Miscellaneous route 3 (three) times a day As a backup to CGM to test blood sugar. One Touch Verio . 100 strip 5 Dexcom G6 Vibrator Operator Mis Use as directed for continuous glucose monitoring . 1 each 0 Dexcom G6 Sensor Simran Use as directed for continuous glucose monitoring change every 10 days . 3 each 11 Dexcom G6 Transmitter Simran Use as directed for continuous glucose monitoring change every 3 months . 1 each 3 ergocalciferol (Vitamin D2) 1,250 mcg (50,000 unit) capsule Take 1 (one) capsule (50,000 Units total) by mouth once a week . 12 capsule 1 glucagon (Gvoke HypoPen 2-Pack) 1 mg/0.2 mL AtIn Inject 0.2 mL (1 mg total) under the skin as needed . 2 mL 1 inhalational spacing device inhaler Use as instructed . 1 each 2 lancets Mis 1 Lancet by Miscellaneous route 3 (three) times a day . 100 each 5 lidocaine-prilocaine (EMLA) cream Apply topically as needed . 30 g 1 loperamide (IMODIUM) 2 mg capsule Take 1 (one) capsule (2 mg total) by mouth as needed for diarrhea (Max dose 7 pills) . 20 capsule 1 miscellaneous medical supply Misc 1 each by Miscellaneous route daily . 100 each 2 Omnipod 5 G6 Pods, Gen 5, Crtg Omnipod Insulin Refill Crtg ondansetron (ZOFRAN-ODT) 4 MG disintegrating tablet Dissolve 1 (one) tablet (4 mg total) on top of tongue every 8 (eight) hours as needed for nausea . 20 tablet 1 Current Medications: atorvastatin 40 mg Oral Nightly busPIRone 30 mg Oral BID citalopram 40 mg Oral Daily enoxaparin (LOVENOX) injection 40 mg Subcutaneous BID insulin glargine 30 Units Subcutaneous Nightly lispro insulin 0-15 Units Subcutaneous at bedtime insulin lispro 0-30 Units Subcutaneous TID AC lamoTRIgine 25 mg Oral BID levothyroxine 75 mcg Oral Daily nortriptyline 25 mg Oral Nightly pantoprazole 40 mg Oral QAM AC piperacillin-tazobactam (ZOSYN) extended infusion 3.375 g Intravenous Q8H pregabalin 75 mg Oral BID QUEtiapine 800 mg Oral Nightly sodium chloride (PF) 5 mL Intravenous Q8H SAMEER sodium zirconium cyclosilicate 10 g Oral TID Followed by sodium zirconium cyclosilicate 10 g Oral Daily timolol 1 drop Left Eye Daily tiZANidine 4 mg Oral Nightly Allergies Allergen Reactions Iodides Other (See Comments) Renal compromise Ketorolac Hives, Other (See Comments), Rash and GI Intolerance Messes with seizures Unsure of reaction Tramadol Hives, Rash, Other (See Comments) and GI Intolerance Codeine Other reaction(s): Aggressive Behavior Propoxyphene N-Acetaminophen GI Intolerance Adhesive Itching Compazine [Prochlorperazine] Other (See Comments) She reports Compazine made her feel anxious and grumpy Ct: Iodinated Contrast- Oral And Iv Dye Other (See Comments) Shuts my kidneys down Fentanyl Ibuprofen Other (See Comments) shuts kidney down Latex Dermatitis Linezolid Nausea And Vomiting and GI Intolerance Lorazepam Other (See Comments) Nsaids (Non-Steroidal Anti-Inflammatory Drug) shuts my kidney's down Vancomycin Other (See Comments) Shuts kidney down Propoxyphene GI Intolerance OBJECTIVE FINDINGS: Vital Signs (24hrs): Temp: [97.4 F (36.3 C)-98.2 F (36.8 C)] 97.9 F (36.6 C) Heart Rate: [67-94] 72 Resp: [12-22] 16 BP: (139-200)/(85-113) 187/113 Physical Exam Vitals and nursing note reviewed. Constitutional: General: She is not in acute distress. Appearance: Normal appearance. She is not ill-appearing or toxic-appearing. HENT: Head: Normocephalic and atraumatic. Right Ear: External ear normal. Left Ear: External ear normal. Nose: Nose normal. Mouth/Throat: Mouth: Mucous membranes are moist. Pharynx: Oropharynx is clear. No posterior oropharyngeal erythema. Eyes: General: No scleral icterus. Extraocular Movements: Extraocular movements intact. Conjunctiva/sclera: Conjunctivae normal. Cardiovascular: Rate and Rhythm: Normal rate and regular rhythm. Pulses: Normal pulses. Heart sounds: Normal heart sounds. No murmur heard. Pulmonary: Effort: Pulmonary effort is normal. No respiratory distress. Breath sounds: Normal breath sounds. No wheezing. Abdominal: General: Bowel sounds are normal. There is no distension. Palpations: Abdomen is soft. Tenderness: There is no abdominal tenderness. Musculoskeletal: Cervical back: Neck supple. Skin: General: Skin is warm and dry. Coloration: Skin is not jaundiced. Comments: Left foot dressing in place. No issues to the exposed lower extremity tissues. Neurological: General: No focal deficit present. Mental Status: She is alert. Diagnostic Data: Lab Results Component Value Date WBC 6.90 03/30/2024 HGB 9.4 (L) 03/30/2024 HCT 29.7 (L) 03/30/2024 MCV 95.5 03/30/2024 EXTMCV 94.1 03/22/2024 PLT 263 03/30/2024 RBC 3.11 (L) 03/30/2024 Lab Results Component Value Date NEUTROABS 7.35 (H) 03/24/2024 Estimated Creatinine Clearance: 33.3 mL/min (A) (by C-G formula based on SCr of 1.67 mg/dL (H)). Lab Results Component Value Date CRP 15.1 (H) 03/24/2024 Lab Results Component Value Date SEDRATE 62 (H) 03/24/2024 No results found for: [id number] Microbiology and Other Significant ID Labs: (personally reviewed) Current mirco noted above in assessment/plan Imaging Results: (personally reviewed) US Renal and Bladder Final Result Unremarkable renal ultrasound. Workstation ID: [id number] Chest Lateral Final Result FINDINGS/ 1. The port access needle appears to be overlying the central portion of the MediPort. 2. Lungs are clear. 3. No pleural effusion. 4. Normal alignment of the thoracic spine. 5. Upper abdominal bowel gas pattern is nonspecific. IR/gigi Workstation ID: [id number] XR Chest 1 View Final Result FINDINGS/ 1. Low lung volumes. 2. No pneumothorax. No pleural effusion. 3. Heart size and mediastinal contours are normal. 4. No acute osseous abnormality. Left pacemaker/ICD with intact leads. Right MediPort in expected position. 5. Upper abdominal bowel gas pattern is nonspecific. Workstation ID: [id number] XR Toe(s) Left 2+ Views Final Result Findings suggest osteomyelitis of the tip of the tuft of the 1st distal phalanx. Workstation ID: [id number] Cosigned by Jem Del Angel DO at 03/30/2024 2:25 PM EST Associated attestation - Jem Del Angel DO - 03/30/2024 2:25 PM EST I have independently seen and evaluated this patient and discussed the plan with Sheng Anthony CNP. I have reviewed all of the pertinent history, labs, imaging and medications. I agree with the the notation unless otherwise specified in the below noted plan. Problem List Left foot diabetic foot infection, concern for osteomyelitis S/p bedside debridement 03/25/2024: MSSA Acute kidney injury, resolving PPM Morbid obesity: BMI 50 Plan Stop Zosyn Begin oral antimicrobial therapy with cefadroxil 500 Mg p.o. every 12, completed 14-day course Recommend close follow-up with podiatry Counseled patient at bedside regarding uncontrolled diabetes and how tight control this will help her with wound healing in the future Jem Del Angel DO 2:23 PM 03/30/2024 OPG-ID Associated Order(s): IP CONSULT TO ENTEROSTOMAL THERAPY Consulted to see patient for left great toe ulcer. Removed dressing. Small amount of fresh blood noted. Cleansed with soap and water. Measures a 1cm x 1cm. Wound bed is red and bleeding. Gema wound is dry and intact. Swabbed with betadine and covered with a bandaid. Wound care orders placed. Associated Order(s): IP CONSULT TO NEPHROLOGY NEPHROLOGY CONSULTATION [facility] Patient Name: Addie Jean Baptiste MR #: [id number] : 1975 Requesting provider: hospitalist Reason for consult: SOLO on CKD Impression: SOLO CKD stage 3 - baseline cr in the 1.3-1.5 Left toe osteomyelitis HTN DM Plan: SOLO - due to volume mediated changes with component of ATN from hypotension and sepsis. Will keep on IVF 0.9 NS at 75 ml/hr. UA and Ucx grew E. Coli - cont on zosyn. Will check kidney ultrasound, and CPK. Continue to avoid nephrotoxic agents CKD stage 3 - baseline cr in the 1.3-1.5 range. 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 Agree with holding ACEI, diuretics, and metformin due to SOLO. Left toe osteomyelitis - Xray does show osteomyelitis. Wound cx grew MSSA. Plan per podiatry HTN - holding BP medications due to hypotension DM - insulin pump on hold. SSI History of Presenting Illness: Addie Jean Baptiste is a 48 y.o. female on hospital day 2 with a history of HTN, DM and CKD stage 3 presented to hospital due to left toe pain and drainage. Been following with podiatry. Denies any antibiotics prior to hospitalization. Denies any NSAIDS uses. Been having loss of appetite. Lab work as noted: Component Latest Ref Rng 03/24/2024 03/25/2024 03/26/2024 03/27/2024 Creatinine 0.40 - 1.10 mg/dL 1.44 (H) 1.35 (H) 2.52 (H) 2.53 (H) Creatinine 1.67 (H) History: Past Medical History: Diagnosis Date Anxiety Bipolar 1 disorder (HCC) Chronic back pain Chronic kidney disease, stage 3 unspecified (HCC) Coronary artery disease Depression Diabetes mellitus (HCC) Hypertension MRSA (methicillin resistant Staphylococcus aureus) Pacemaker Seizures (HCC) Stroke (HCC) Past Surgical History: Procedure Laterality Date CHOLECYSTECTOMY FOOT SURGERY HYSTERECTOMY ORTHOPEDIC SURGERY left foot surgery PACEMAKER INSERTION Family History: Family History Problem Relation Age of Onset Seizures Mother Diabetes Father Hypertension Father Diabetes type II Father [] Unable to obtain due to ventilated and/or neurologic status Social History Socioeconomic History Marital status: Tobacco Use Smoking status: Former Current packs/day: 1.00 Average packs/day: 1 pack/day for 18.3 years (18.3 ttl pk-yrs) Types: Cigarettes Start date: 09/30/2014 Passive exposure: Current Smokeless tobacco: Never Tobacco comments: Vaping 6 mg nicotine Vaping Use Vaping status: Every Day Substances: Nicotine, Flavoring Devices: Pre-filled or refillable cartridge Substance and Sexual Activity Alcohol use: No Alcohol/week: 0.0 standard drinks of alcohol Drug use: Yes Types: Marijuana Comment: smoking as needed, last use thursday night Social Drivers of Health Financial Resource Strain: Medium Risk (01/13/2024) Overall Financial Resource Strain (CARDIA) Difficulty of Paying Living Expenses: Somewhat hard Food Insecurity: No Food Insecurity (03/25/2024) Hunger Vital Sign Worried About Running Out of Food in the Last Year: Never true Ran Out of Food in the Last Year: Never true Recent Concern: Food Insecurity - Food Insecurity Present (01/12/2024) Hunger Vital Sign Worried About Running Out of Food in the Last Year: Sometimes true Ran Out of Food in the Last Year: Sometimes true Transportation Needs: No Transportation Needs (03/25/2024) PRAPARE - Transportation Lack of Transportation (Medical): No Lack of Transportation (Non-Medical): No Housing Stability: Low Risk (03/25/2024) Housing Stability Vital Sign Unable to Pay for Housing in the Last Year: No Number of Times Moved in the Last Year: 0 Homeless in the Last Year: No Recent Concern: Housing Stability - High Risk (01/12/2024) Housing Stability Vital Sign Unable to Pay for Housing in the Last Year: Yes Number of Times Moved in the Last Year: 1 Homeless in the Last Year: No [] Unable to obtain due to ventilated and/or neurologic status Living Arrangements: Family members Support Systems: Family members Home Medications: Outpatient Medications as of 03/27/2024 Medication Sig albuterol (PROVENTIL) 2.5 mg /3 mL (0.083 %) nebulizer solution Take 3 mL (2.5 mg total) by nebulization every 6 (six) hours as needed for wheezing or shortness of breath . albuterol 90 mcg/actuation inhaler Inhale 1 (one) puff every 4 to 6 hours as needed for shortness of breath or wheezing . atorvastatin (LIPITOR) 40 MG tablet Take 1 (one) tablet (40 mg total) by mouth nightly . busPIRone (BUSPAR) 30 MG tablet Take 1 (one) tablet (30 mg total) by mouth 2 (two) times a day . chlorthalidone (HYGROTON) 25 MG tablet Take 1 (one) tablet (25 mg total) by mouth daily . citalopram (CELEXA) 40 MG tablet Take 1 (one) tablet (40 mg total) by mouth daily . insulin lispro (AdmeLOG,HumaLOG) 100 unit/mL injection Inject up to 150 units once daily via pump . INSULIN PUMP CARTRIDGE SUBQ Inject under the skin Use as directed . lamoTRIgine (LAMICTAL) 25 MG tablet Take 1 (one) tablet (25 mg total) by mouth 2 (two) times a day . levETIRAcetam (KEPPRA) 1000 MG tablet Take 1 (one) tablet (1,000 mg total) by mouth 2 (two) times a day . levothyroxine (SYNTHROID, LEVOTHROID) 75 MCG tablet Take 1 (one) tablet (75 mcg total) by mouth once daily . lidocaine (LMX) 4 % cream Apply topically 3 (three) times a day . lisinopriL (PRINIVIL,ZESTRIL) 40 MG tablet Take 1 (one) tablet (40 mg total) by mouth daily . loratadine (CLARITIN) 10 mg tablet Take 1 (one) tablet (10 mg total) by mouth daily . metFORMIN (GLUCOPHAGE) 1000 MG tablet Take 1 (one) tablet (1,000 mg total) by mouth 2 (two) times a day . metoprolol succinate (TOPROL-XL) 50 MG 24 hr tablet Take 1 (one) tablet (50 mg total) by mouth daily . nortriptyline (PAMELOR) 25 MG capsule Take 1 (one) capsule (25 mg total) by mouth nightly . nystatin (MYCOSTATIN) powder Apply topically 2 (two) times a day . omeprazole (PRILOSEC) 40 MG capsule Take 1 (one) capsule (40 mg total) by mouth 2 (two) times a day . oxyCODONE-acetaminophen (PERCOCET) 5-325 mg per tablet Take 1 (one) tablet by mouth nightly as needed for pain (Days supply per fill: 30) . pantoprazole (PROTONIX) 40 MG tablet Take 1 (one) tablet (40 mg total) by mouth daily . pregabalin (LYRICA) 75 MG capsule Take 1 (one) capsule (75 mg total) by mouth 2 (two) times a day (Days supply per fill: 30) . vitamin with Ca-Iron-FA 27-1 mg Tab Take 1 (one) tablet by mouth daily . QUEtiapine (SEROQUEL) 400 MG tablet Take 2 (two) tablets (800 mg total) by mouth nightly . timolol (TIMOPTIC) 0.5 % ophthalmic solution Administer 1 (one) drop into the left eye daily . tiZANidine (Zanaflex) 4 MG tablet Take 2 tabs p.o. nightly . traZODone (DESYREL) 50 MG tablet Take 1 (one) tablet (50 mg total) by mouth nightly as needed . alcohol swabs PadM Apply 1 (one) Swab. topically 5 (five) times a day Clean area before administering insulin. . blood sugar diagnostic (glucose blood) strips by Miscellaneous route 3 (three) times a day As a backup to CGM to test blood sugar. One Touch Verio . Dexcom G6 Vibrator Operator Misc Use as directed for continuous glucose monitoring . Dexcom G6 Sensor Simran Use as directed for continuous glucose monitoring change every 10 days . Dexcom G6 Transmitter Simran Use as directed for continuous glucose monitoring change every 3 months . glucagon (Gvoke HypoPen 2-Pack) 1 mg/0.2 mL AtIn Inject 0.2 mL (1 mg total) under the skin as needed . inhalational spacing device inhaler Use as instructed . lancets Misc 1 Lancet by Miscellaneous route 3 (three) times a day . lidocaine-prilocaine (EMLA) cream Apply topically as needed . loperamide (IMODIUM) 2 mg capsule Take 1 (one) capsule (2 mg total) by mouth as needed for diarrhea (Max dose 7 pills) . miscellaneous medical supply Misc 1 each by Miscellaneous route daily . Omnipod 5 G6 Pods, Gen 5, Crtg Omnipod Insulin Refill Crtg ondansetron (ZOFRAN-ODT) 4 MG disintegrating tablet Dissolve 1 (one) tablet (4 mg total) on top of tongue every 8 (eight) hours as needed for nausea . Current Hospital Medications: Scheduled Meds: atorvastatin 40 mg Oral Nightly busPIRone 30 mg Oral BID citalopram 40 mg Oral Daily enoxaparin (LOVENOX) injection 40 mg Subcutaneous BID lispro insulin 0-15 Units Subcutaneous at bedtime insulin lispro 0-30 Units Subcutaneous TID AC lamoTRIgine 25 mg Oral BID levothyroxine 75 mcg Oral Daily nortriptyline 25 mg Oral Nightly pantoprazole 40 mg Oral QAM AC piperacillin-tazobactam (ZOSYN) extended infusion 3.375 g Intravenous Q8H pregabalin 75 mg Oral BID QUEtiapine 800 mg Oral Nightly scopolamine 1 patch Transdermal Once sodium chloride (PF) 5 mL Intravenous Q8H SAMEER timolol 1 drop Left Eye Daily tiZANidine 4 mg Oral Nightly Continuous Infusions: PRN Meds:.albuterol, nalOXone AND Notify physician AND naloxone, ondansetron, oxyCODONE-acetaminophen, [COMPLETED] Insert peripheral IV AND Saline lock IV AND sodium chloride (PF) AND sodium chloride 0.9 %, Saline lock IV AND sodium chloride (PF) AND sodium chloride (PF) AND sodium chloride 0.9 %, traZODone Allergies: I have reviewed the patient's allergies. Iodides, Ketorolac, Tramadol, Codeine, Propoxyphene n-acetaminophen, Adhesive, Compazine [prochlorperazine], Ct: iodinated contrast- oral and iv dye, Fentanyl, Ibuprofen, Latex, Linezolid, Lorazepam, Nsaids (non-steroidal anti-inflammatory drug), Vancomycin, and Propoxyphene Review of Systems: [x] CV, Resp, GI, Neuro, and all other systems reviewed and negative other than listed in HPI. [] Unable to obtain due to intubation and/or neurologic status. Objective Findings: Vitals:BP (!) 80/62 Pulse 94 Temp 98.8 F (37.1 C) (Oral) Resp (!) 10 Ht 5' 2 Wt 120.5 kg (265 lb 10.5 oz) SpO2 97% BMI 48.59 kg/m Intake/Output last 3 shifts: Intake/Output Summary (Last 24 hours) at 03/27/2024 1441 Last data filed at 03/27/2024 1325 Gross per 24 hour Intake 2166.5 ml Output 300 ml Net 1866.5 ml I/O last 3 completed shifts: In: 1020.1 [P.O.:720; IV Piggyback:300.1] Out: - Physical Examination: General: Age appropriate, NAD. HEENT: Normocephalic, no scleral icterus. Neck: No JVD. Heart: Regular, no murmur, no rub/gallop. Lungs: decreased breath sounds B/L Abdomen: Soft, nontender, no supra-public fullness or tenderness. Extremities: No clubbing/cyanosis, no edema. Left foot bandaged Results/Medications Reviewed: 03/27/24 2:41 PM: Laboratory, Microbiology, Pathology, Radiology, Cardiology, Medications and Transcriptions Laboratory: Results from last 7 days Lab Units 03/27/24 0434 03/25/24 0550 03/24/24 2253 WBC K/mcL 7.80 8.66 9.56 HGB g/dL 9.6* 10.2* 12.5 HEMOGLOBIN BG g/dL -- -- 13.0 HEMATOCRIT, CALCULATED % -- -- 40.0 HCT % 30.8* 29.7* 37.6 PLT K/mcL 308 297 371 Results from last 7 days Lab Units 03/27/24 0434 03/26/24 2306 03/26/24 0352 03/25/24 0551 SODIUM mmol/L 140 137 -- 138 POTASSIUM mmol/L 4.8 4.8 -- 4.3 CHLORIDE mmol/L 110* 106 -- 105 BICARB mmol/L 21 20* -- 22 BUN mg/dL 32* 30* -- 23 CREATININE mg/dL 2.53* 2.52* 1.67* 1.35* EGFR mL/min/1.73 m2 23* 23* 38* 49* GLUCOSE mg/dL 161* 333* -- 345* CALCIUM mg/dL 8.2* 8.3* -- 8.3* Urinalysis Results from last 7 days Lab Units 03/25/24 0052 COLOR, UR Yellow CLARITY, UR Clear SPEC GRAV 1.021 PH, UR 5.0 GLUCOSE, UR mg/dL >=500* KETONES, UR mg/dL Negative BILIRUBIN, UR Negative UROBILINOGEN, UR mg/dL <2.0 BLOOD, UR Moderate* NITRITE, UR Negative LEUK LORI, UR Negative MUCUS, UR /lpf Rare WBC, UR /hpf 5 BACTERIA, UR /hpf Rare* Risk/Complexity: [x] I have reviewed Progress Notes in the Epic EHR and CareEverywhere. [x] I have interpreted/reviewed lab tests and radiography data in the [facility] EHR. [x] I have discussed the case with the primary service. [x] I have ordered appropriate tests/labs Comments: Thank you for allowing us to participate in the care of this patient. We will continue to follow. Please call if questions or concerns arise. Associated Order(s): IP CONSULT TO SHEET CATCHER Critical Care Consult Note Reason for Consultation: Shock Impression and Recommendations 1) Hypovolemic shock - Opiate-induced in setting of intravascular depletion, responded to Narcan and 1L IVF - Hemodynamically stable now 2) Acute cystitis - E.Coli in urine, on Zosyn 3) Left toe osteomyelitis - Wound cx w/ MSSA, on Zosyn 4) Acute on chronic renal failure, stage 3 - ATN due to hypotension, no further IVF needed, oral replacement adequate - Monitor opiate use as will have accumulation of metabolites and renal failure 5) Type 2 diabetes - Insulin pump on hold; severe resistant insulin correction factor 6) Port access issues - Anterior and lateral CXR show port accesses appropriately, still not drawing Transient hypotension improved with Narcan and IVF. No further IVF needed and stable for transfer out of ICU. Encourage PO fluid intake and continue on current antibiotic course. Pulmonary service will sign off. Please call with questions. History of Presenting Illness: Addie Jean Baptiste is a 48 y.o. female with a past medical history significant for bipolar disorder, hypertension, diabetes, chronic renal failure, sick sinus syndrome with PPM who presented on 03/24 with left first toe osteomyelitis. She had a rapid response overnight due to hypotension, hypoxemia, and possible accidental opiate overdose. She responded to Narcan and IVF, but was transferred to ICU. On exam this morning she is alert and appropriate and denies any acute issues, though she asks when her next pain pill is due. Notified by RN that port had been accessed but was not able to have any blood return. Review of Systems: In addition to what is noted in the HPI, pertinent positive ROS are as follows: ROS is otherwise negative except for noted above. Past Medical, Surgical, Family, and Social History: Past Medical History: Diagnosis Date Anxiety Bipolar 1 disorder (HCC) Chronic back pain Chronic kidney disease, stage 3 unspecified (HCC) Coronary artery disease Depression Diabetes mellitus (HCC) Hypertension MRSA (methicillin resistant Staphylococcus aureus) Pacemaker Seizures (HCC) Stroke (HCC) Past Surgical History: Procedure Laterality Date CHOLECYSTECTOMY FOOT SURGERY HYSTERECTOMY ORTHOPEDIC SURGERY left foot surgery PACEMAKER INSERTION Family History Problem Relation Age of Onset Seizures Mother Diabetes Father Hypertension Father Diabetes type II Father Social History Socioeconomic History Marital status: Tobacco Use Smoking status: Former Current packs/day: 1.00 Average packs/day: 1 pack/day for 18.3 years (18.3 ttl pk-yrs) Types: Cigarettes Start date: 09/30/2014 Passive exposure: Current Smokeless tobacco: Never Tobacco comments: Vaping 6 mg nicotine Vaping Use Vaping status: Every Day Substances: Nicotine, Flavoring Devices: Pre-filled or refillable cartridge Substance and Sexual Activity Alcohol use: No Alcohol/week: 0.0 standard drinks of alcohol Drug use: Yes Types: Marijuana Comment: smoking as needed, last use thursday night Social Drivers of Health Financial Resource Strain: Medium Risk (01/13/2024) Overall Financial Resource Strain (CARDIA) Difficulty of Paying Living Expenses: Somewhat hard Food Insecurity: No Food Insecurity (03/25/2024) Hunger Vital Sign Worried About Running Out of Food in the Last Year: Never true Ran Out of Food in the Last Year: Never true Recent Concern: Food Insecurity - Food Insecurity Present (01/12/2024) Hunger Vital Sign Worried About Running Out of Food in the Last Year: Sometimes true Ran Out of Food in the Last Year: Sometimes true Transportation Needs: No Transportation Needs (03/25/2024) PRAPARE - Transportation Lack of Transportation (Medical): No Lack of Transportation (Non-Medical): No Housing Stability: Low Risk (03/25/2024) Housing Stability Vital Sign Unable to Pay for Housing in the Last Year: No Number of Times Moved in the Last Year: 0 Homeless in the Last Year: No Recent Concern: Housing Stability - High Risk (01/12/2024) Housing Stability Vital Sign Unable to Pay for Housing in the Last Year: Yes Number of Times Moved in the Last Year: 1 Homeless in the Last Year: No Living Arrangements: Family members Support Systems: Family members Allergies and Medications: Allergies: I have reviewed the patient's allergies. Iodides, Ketorolac, Tramadol, Codeine, Propoxyphene n-acetaminophen, Adhesive, Compazine [prochlorperazine], Ct: iodinated contrast- oral and iv dye, Fentanyl, Ibuprofen, Latex, Linezolid, Lorazepam, Nsaids (non-steroidal anti-inflammatory drug), Vancomycin, and Propoxyphene Select home or hospital medications: Prior to Admission medications Medication Sig Start Date End Date Taking? Authorizing Provider albuterol (PROVENTIL) 2.5 mg /3 mL (0.083 %) nebulizer solution Take 3 mL (2.5 mg total) by nebulization every 6 (six) hours as needed for wheezing or shortness of breath . 12/10/23 Yes Stephany Pelayo PA-C albuterol 90 mcg/actuation inhaler Inhale 1 (one) puff every 4 to 6 hours as needed for shortness of breath or wheezing . 12/01/23 Yes Stephany Pelayo PA-C atorvastatin (LIPITOR) 40 MG tablet Take 1 (one) tablet (40 mg total) by mouth nightly . 01/27/24 Yes Rfaaela Medrano CNP busPIRone (BUSPAR) 30 MG tablet Take 1 (one) tablet (30 mg total) by mouth 2 (two) times a day . Yes Rosario Garcia MD chlorthalidone (HYGROTON) 25 MG tablet Take 1 (one) tablet (25 mg total) by mouth daily . 02/11/24 Yes Stephany Pelayo PA-C citalopram (CELEXA) 40 MG tablet Take 1 (one) tablet (40 mg total) by mouth daily . 03/22/24 Yes Stephany Pelayo PA-C insulin lispro (AdmeLOG,HumaLOG) 100 unit/mL injection Inject up to 150 units once daily via pump . 12/08/23 Yes Sahara Sanchez MD INSULIN PUMP CARTRIDGE SUBQ Inject under the skin Use as directed . Yes Manuel Cardona MD lamoTRIgine (LAMICTAL) 25 MG tablet Take 1 (one) tablet (25 mg total) by mouth 2 (two) times a day . 02/08/24 Yes Rosario Garcia MD levETIRAcetam (KEPPRA) 1000 MG tablet Take 1 (one) tablet (1,000 mg total) by mouth 2 (two) times a day . 01/13/23 Yes Fab Head MD levothyroxine (SYNTHROID, LEVOTHROID) 75 MCG tablet Take 1 (one) tablet (75 mcg total) by mouth once daily . 01/27/24 Yes Rafaela Medrano CNP lidocaine (LMX) 4 % cream Apply topically 3 (three) times a day . 09/22/23 09/21/24 Yes Shameka Castillo DPM lisinopriL (PRINIVIL,ZESTRIL) 40 MG tablet Take 1 (one) tablet (40 mg total) by mouth daily . 02/11/24 Yes Stephany Pelayo PA-C loratadine (CLARITIN) 10 mg tablet Take 1 (one) tablet (10 mg total) by mouth daily . 02/11/24 Yes Stephany Pelayo PA-C metFORMIN (GLUCOPHAGE) 1000 MG tablet Take 1 (one) tablet (1,000 mg total) by mouth 2 (two) times a day . 01/27/24 07/25/24 Yes Rafaela Medrano CNP metoprolol succinate (TOPROL-XL) 50 MG 24 hr tablet Take 1 (one) tablet (50 mg total) by mouth daily . 01/27/24 07/25/24 Yes Rafaela Medrano CNP nortriptyline (PAMELOR) 25 MG capsule Take 1 (one) capsule (25 mg total) by mouth nightly . 02/11/24 Yes Stephany Pelayo PA-C nystatin (MYCOSTATIN) powder Apply topically 2 (two) times a day . 03/22/24 03/22/25 Yes Stephany Pelayo PA-C omeprazole (PRILOSEC) 40 MG capsule Take 1 (one) capsule (40 mg total) by mouth 2 (two) times a day . Yes Manuel Cardona MD oxyCODONE-acetaminophen (PERCOCET) 5-325 mg per tablet Take 1 (one) tablet by mouth nightly as needed for pain (Days supply per fill: 30) . 03/24/24 04/23/24 Yes Jim Velez DO pantoprazole (PROTONIX) 40 MG tablet Take 1 (one) tablet (40 mg total) by mouth daily . 02/11/24 Yes Stephany Pelayo PA-C pregabalin (LYRICA) 75 MG capsule Take 1 (one) capsule (75 mg total) by mouth 2 (two) times a day (Days supply per fill: 30) . 03/09/24 04/08/24 Yes Mihai Elizalde CNP vitamin with Ca-Iron-FA 27-1 mg Tab Take 1 (one) tablet by mouth daily . Yes Manuel Cardona MD QUEtiapine (SEROQUEL) 400 MG tablet Take 2 (two) tablets (800 mg total) by mouth nightly . 02/08/24 05/08/24 Yes Rosario Garcia MD timolol (TIMOPTIC) 0.5 % ophthalmic solution Administer 1 (one) drop into the left eye daily . 12/15/23 Yes Manuel Cardona MD tiZANidine (Zanaflex) 4 MG tablet Take 2 tabs p.o. nightly . 03/09/24 Yes Mihai Elizalde CNP traZODone (DESYREL) 50 MG tablet Take 1 (one) tablet (50 mg total) by mouth nightly as needed . 02/08/24 Yes Rosario Garcia MD alcohol swabs PadM Apply 1 (one) Swab. topically 5 (five) times a day Clean area before administering insulin. . 12/08/23 06/05/24 Sahara Sanchez MD blood sugar diagnostic (glucose blood) strips by Miscellaneous route 3 (three) times a day As a backup to CGM to test blood sugar. One Touch Verio . 12/08/23 06/05/24 Sahara Sanchez MD Dexcom G6 Vibrator Operator Misc Use as directed for continuous glucose monitoring . 12/03/23 Sahara Sanchez MD Dexcom G6 Sensor Simran Use as directed for continuous glucose monitoring change every 10 days . 12/03/23 Sahara Sanchez MD Dexcom G6 Transmitter Simran Use as directed for continuous glucose monitoring change every 3 months . 12/03/23 Sahara Sanchez MD ergocalciferol (Vitamin D2) 1,250 mcg (50,000 unit) capsule Take 1 (one) capsule (50,000 Units total) by mouth once a week . 03/24/24 Stephany Pelayo PA-C glucagon (Gvoke HypoPen 2-Pack) 1 mg/0.2 mL AtIn Inject 0.2 mL (1 mg total) under the skin as needed . 12/03/23 Sahara Sanchez MD hydrOXYzine (VISTARIL) 25 MG capsule Take 1 (one) capsule (25 mg total) by mouth 2 (two) times a day as needed for itching or anxiety . 03/25/24 Stephany Pelayo PA-C inhalational spacing device inhaler Use as instructed . 03/10/24 03/10/25 Stephany Pelayo PA-C lancets Misc 1 Lancet by Miscellaneous route 3 (three) times a day . 12/08/23 Sahara Sanchez MD lidocaine-prilocaine (EMLA) cream Apply topically as needed . 03/22/24 Stephany Pelayo PA-C loperamide (IMODIUM) 2 mg capsule Take 1 (one) capsule (2 mg total) by mouth as needed for diarrhea (Max dose 7 pills) . 03/22/24 Stephany Pelayo PA-C miscellaneous medical supply Misc 1 each by Miscellaneous route daily . 12/10/23 Stephany Pelayo PA-C Omnipod 5 G6 Pods, Gen 5, Crtg 01/29/24 Provider, MD Manuel Omniplion Insulin Refill Crtg 04/16/20 Provider, MD Manuel ondansetron (ZOFRAN-ODT) 4 MG disintegrating tablet Dissolve 1 (one) tablet (4 mg total) on top of tongue every 8 (eight) hours as needed for nausea . 02/11/24 Stephany Pelayo PA-C Exam: Vital Signs: Temp: [97.8 F (36.6 C)-98.8 F (37.1 C)] 98.8 F (37.1 C) Heart Rate: [82-103] 92 Resp: [9-24] 9 BP: (71-147)/(46-88) 90/47 Intake/Output Summary (Last 24 hours) at 03/27/2024 1212 Last data filed at 03/27/2024 1120 Gross per 24 hour Intake 1948.98 ml Output -- Net 1948.98 ml Vitals reviewed Gen: Alert and oriented x 3, In no apparent distress HEENT: Head: Normocephalic, no lesions, without obvious abnormality. Pharynx: Dental Hygiene adequate. Normal buccal mucosa. Normal pharynx. Neck: nontender, full range of motion, no mass, no focal lymphadenopathy Cardio: regular rate and rhythm, no murmur, brisk capillary refill Resp: clear to auscultation bilaterally, no wheezes or crackles, no tachypnea or accessory muscle use Abd: soft, nontender, nondistended, no hepatosplenomegaly, no mass, normal bowel sounds MSK: Moves all four extremities spontaneously. Neuro: Grossly normal without focal findings Skin: no rashes, no jaundice Laboratory Data and Critical Care Checklist: [x] Medications reviewed. [x] Labs reviewed. Pertinent findings noted: Cr 1.67 -> 2.53, CBC stable [x] Radiology reviewed. Pertinent findings noted: Anterior and lateral views of the chest showed the access needle and the port [] Pathology reviewed. Pertinent findings noted: Family Update/ Code Status: Full code Merrick Almanza MD 12:12 PM Admitted with these risk variables: Shock, Acute Kidney Injury, Chronic Kidney Disease, and Hypovolemia. Please see assessment and plan for further details. Associated Order(s): IP CONSULT TO ELECTRICIAN POWERHOUSE; IP CONSULT TO ELECTRICIAN POWERHOUSE Admission Dx: Reviewed H&P, Chart Review and Results Review tabs. Pre-admission and admission medication regimen reviewed. Reason for Admission: Bone infection Hx: Bipolar, COPD, HTN, Nicotine dependence, Seizures, T@DM, and other co-morbid conditions A1c: 9.9% Subjective: I fell off the wagon and I got to get back on . Admits that she has not been bolusing for her blood sugars with her insulin pump . Blood sugar trends this admission: 148->500 mg/dL, Fasting blood sugar: 286 mg/dL Pre-admission glycemic medications: Humalog via Insulin pump up to 150 units daily Follows with Endocrinology, states that she has an upcoming appointment in April. Glucose monitoring pre-admission: Dexcom G6 Diabetes Education Provided: Hemoglobin A1c: 9.9% which is a daily average blood sugar of 237 mg/dL over the past three months. Risk factors of hyperglycemia: heart attack and heart disease, stroke, neuropathy, kidney disease, blindness and non-healing wounds which can lead to amputations. Refusing education today stating, I just have to get back on the wagon and do what I should do . Associated Order(s): IP CONSULT TO ENTEROSTOMAL THERAPY Consulted to see patient for her LLQ. Removed old dressing with scant amount of fresh blood noted. Cleansed with soap and water. Wound bed is bleeding and gema wound is red. Patient states she has slight pain when touching the area. States she has had this area since December of this year. States her briefs rub the area raw. Measures a 1cm x 1cm. Applied medical honey and covered with a band-aid per patients request. Wound care orders placed. Associated Order(s): IP CONSULT TO PODIATRY Images from the original note were not included. [facility] ASSESSMENT AND PLAN: Diabetes T2 with neuropathy Hyperglycemia CKD Stage III H/o Seizures left hallux ulceration Left foot cellulitis suspected Osteomyelitis The patient was seen and evaluated and discussed findings with patient. Ulceration of the right hallux distal tuft: The patient's ulceration of the right hallux distal is fibrotic and hyperkeratotic tissue with light to moderate drainage appreciated. An excisional debridement was performed into the subcutaneous layer removing necrotic fibrotic tissues with a soft tissue nipper. Post excisional debridement measurement is a 15 x 14 x 3 mm Hernandez grade 2 ulceration does not probe to bone tunnel or track. Deep tissue culture taken sent for culture and sensitivities. Applied a Betadine gauze bandage dressing instructed on daily dressing changes. Suspected osteomyelitis right hallux distal tuft: I did review the patient's x-rays today and distal. I question how extensive for how aggressive any sort of osteomyelitis may be present in this toe necessitating amputation during this admission. The patient left to continue to save her toe and so we will pursue an oral antibiotic treatment over the next months and pending culture results. - OR Plans: none - ABX: Vanc/Zosyn per medicine cultures obtained - DSG: betadine wet to dry daily. - WBS: even weightbearing right foot - XR reviewed - suspected OM left hallux distal tuft - DISPO: I will reassess the patient on Thursday once cultures are finalized and discuss antibiotic treatment in the outpatient setting. Answered questions and rediscussed plan at length with the patient and family if present. Discussed plan with other teams' providers. We discussed with the patient the pathology, etiology, pathogenesis, current condition management plan and disposition. This was discussed at various times during the day with representatives from nursing, pharmacy, case management, social work, and therapies as needed. We discussed with the patient he etiology of problems listed in the Assessment and Plan section, as well as risk factors, natural course, prognosis, treatment options with associated risks and benefits. Importance of compliance with the treatment plan was emphasized. I explained test results to date, as well as additional diagnostic recommendations. I explained discharge plans, including the required post-hospitalization care, treatment, and services. All questions were answered and ample time was provided. 48 y.o. YEAR OLD female WAS ADMITTED TO [facility] [place] ON 03/24/2024 WITH Chief Complaint Patient presents with Toe Pain I AM BEING ASKED TO SEE THIS PATIENT AT THE REQUEST OF DR. Juwan Smith MD . The patient presents with an ulceration On the right hallux distal tuft. The patient presented with hyperglycemia DKA and is undergoing treatment for this. The patient denies nausea, fever, vomiting, chills or shortness of breath. PODIATRIC HISTORY AND PHYSICAL REVEALS: The patient is AOx3 and in no acute distress. VASCULAR: DP and PT pulses are 1/4 b/l. CFT <3sec. Pedal hair is absent. Skin temperature is warm to warm from proximal tibia to toes b/l. DERMATOLOGIC: Toenails 1-10 are within normal limits. Turgor and texture of skin is normal. NEUROLOGICAL: Epicritic and gross sensation is intact. Protective and vibratory sensation is diminished. Sharp, dull, hot and cold , vibratory, and proprioception sensations are: diminished. Achilles and patellar deep tendon reflexes intact. ORTHO: No pain with palpation secondary to neuropathy. LABS: Results from last 7 days Lab Units 03/25/24 0551 03/24/24 2253 SODIUM mmol/L 138 134* POTASSIUM mmol/L 4.3 4.6 CHLORIDE mmol/L 105 97* BUN mg/dL 23 24 CREATININE mg/dL 1.35* 1.44* GLUCOSE mg/dL 345* 646* CALCIUM mg/dL 8.3* 9.3 Results from last 7 days Lab Units 03/25/24 0550 03/24/24 2253 WBC K/mcL 8.66 9.56 HGB g/dL 10.2* 12.5 HEMOGLOBIN BG g/dL -- 13.0 HEMATOCRIT, CALCULATED % -- 40.0 HCT % 29.7* 37.6 PLT K/mcL 297 371 MONOS% % -- 4.5 EOSIN% % -- 3.5 Results from last 7 days Lab Units 03/24/24 2253 ALK PHOS U/L 139 BILIRUBIN TOTAL mg/dL 0.5 BILIRUBIN DIRECT mg/dL <0.2 TOTAL PROTEIN g/dL 8.1* ALT U/L 16 AST U/L 16 * Cannot find OR log * IMAGING: ECG 12- Lead Result Date: 03/25/2024 Sinus tachycardia Possible Anterior infarct , age undetermined Abnormal ECG Confirmed by Inessa Rao MD ([id number]) on 03/25/2024 8:01:09 AM XR Toe(s) Left 2+ Views Result Date: 03/24/2024 EXAMINATION: XR TOE(S) LEFT 2+ VIEWS EXAM DATE: 03/24/2024 7:57 pm HISTORY: ORDERING SYSTEM PROVIDED HISTORY: pain/infection, TECHNOLOGIST PROVIDED HISTORY: Illness/Other Reason for exam: pain/reoccurring infection Cancer History: u Surgery, RadiationHistory: pacemaker Encounter Type: Initial Additional signs and symptoms: pain/infection ORDERING SYSTEM PROVIDED DIAGNOSIS CODES: COMPARISON: 04/28/2023 TECHNIQUE: AP, lateral and oblique views left toes FINDINGS: New erosive changes of the tip of the tuft of the 1st distal phalanx with overlying soft tissue wound. Soft tissue swelling of the 1st digit. No arthritic changes. Findings suggest osteomyelitis of the tip of the tuft of the 1st distal phalanx. Workstation ID: [id number] PAST MEDICAL HISTORY: Past Medical History: Diagnosis Date Anxiety Bipolar 1 disorder (HCC) Bipolar disorder (HCC) Chronic back pain Coronary artery disease Depression Diabetes mellitus (HCC) Hypertension MRSA (methicillin resistant Staphylococcus aureus) Pacemaker Seizures (HCC) Stroke (HCC) PAST SURGICAL HISTORY: Past Surgical History: Procedure Laterality Date CHOLECYSTECTOMY FOOT SURGERY HYSTERECTOMY ORTHOPEDIC SURGERY left foot surgery PACEMAKER INSERTION FAMILY MEDICAL HISTORY: Family History Problem Relation Age of Onset Seizures Mother Diabetes Father Hypertension Father Diabetes type II Father SOCIAL HISTORY: Social History Tobacco Use Smoking status: Former Current packs/day: 1.00 Average packs/day: 1 pack/day for 18.3 years (18.3 ttl pk-yrs) Types: Cigarettes Start date: 09/30/2014 Passive exposure: Current Smokeless tobacco: Never Tobacco comments: Vaping 6 mg nicotine Vaping Use Vaping status: Every Day Substances: Nicotine, Flavoring Devices: Pre-filled or refillable cartridge Substance Use Topics Alcohol use: No Alcohol/week: 0.0 standard drinks of alcohol Drug use: Yes Types: Marijuana Comment: smoking as needed, last use thursday DRUG/FOOD ALLERGIES: Iodides, Ketorolac, Tramadol, Codeine, Propoxyphene n-acetaminophen, Adhesive, Compazine [prochlorperazine], Ct: iodinated contrast- oral and iv dye, Fentanyl, Ibuprofen, Latex, Linezolid, Lorazepam, Nsaids (non-steroidal anti-inflammatory drug), Vancomycin, and Propoxyphene MEDICATIONS: Current Facility-Administered Medications Medication Dose Route Frequency Provider Last Rate Last Admin albuterol (PROVENTIL) 2.5 mg /3 mL (0.083 %) nebulizer solution 2.5 mg 2.5 mg Nebulization Q6H PRN Juwan Smith MD atorvastatin (LIPITOR) tablet 40 mg 40 mg Oral Nightly Juwan Smith MD busPIRone (BUSPAR) tablet 30 mg 30 mg Oral BID Juwan Smith MD 30 mg at 03/25/24826 citalopram (CELEXA) tablet 40 mg 40 mg Oral Daily Juwan Smith MD 40 mg at 03/25/24826 enoxaparin (LOVENOX) syringe 40 mg 40 mg Subcutaneous BID Juwan Smith MD 40 mg at 03/25/24826 lamoTRIgine (LAMICTAL) tablet 25 mg 25 mg Oral BID Juwan Smith MD 25 mg at 03/25/24826 levothyroxine (SYNTHROID, LEVOTHROID) tablet 75 mcg 75 mcg Oral Daily Juwan Smith MD 75 mcg at 03/25/24 05 lisinopriL (PRINIVIL,ZESTRIL) tablet 40 mg 40 mg Oral Daily with lunch Juwan Smith MD metoprolol succinate (TOPROL-XL) 24 hr tablet 50 mg 50 mg Oral Daily Juwan Smith MD naloxone (NARCAN) injection 0.1 mg 0.1 mg Intravenous PRN Floyd Rubin RPh,PharmD And naloxone (NARCAN) injection 0.4 mg 0.4 mg Intravenous PRN Floyd Rubin RPh,PharmD nortriptyline (PAMELOR) capsule 25 mg 25 mg Oral Nightly Juwan Smith MD oxyCODONE-acetaminophen (PERCOCET) 5-325 mg per tablet 1 tablet 1 tablet Oral Q4H PRN Juwan Smith MD 1 tablet at 03/25/24826 pantoprazole (PROTONIX) EC tablet 40 mg 40 mg Oral QAM AC Juwan Smith MD 40 mg at 03/25/24826 piperacillin-tazobactam (ZOSYN) IVPB 3.375 g (premix) 3.375 g Intravenous Q8H Juwan Smith MD 12.5 mL/hr at 03/25/24 0349 3.375 g at 03/25/24 0349 pregabalin (LYRICA) capsule 75 mg 75 mg Oral BID Juwan Smith MD 75 mg at 03/25/24 0334 QUEtiapine (SEROQUEL) tablet 800 mg 800 mg Oral Nightly Juwan Smith MD sodium chloride (PF) (NS) flush 5 mL 5 mL Intravenous PRN Ani Gonzales CNP And sodium chloride 0.9% (NS) 0-150 mL/hr Intravenous PRN Ani Gonzales CNP 20 mL/hr at 03/25/24 0348 20 mL/hr at 03/25/24 0348 sodium chloride (PF) (NS) flush 5 mL 5 mL Intravenous PRN Juwan Smith MD And sodium chloride (PF) (NS) flush 5 mL 5 mL Intravenous Q8H SAMEER Juwan Smith MD And sodium chloride 0.9% (NS) 0-150 mL/hr Intravenous PRN Juwan Smith MD Subcutaneous Insulin Pump (NURSING: Use this for BASAL RATE DOCUMENTATIONS) Miscellaneous Q12H [facility] Juwan Smith MD And Subcutaneous Insulin Pump (NURSING: Use this for BOLUS [Prandial and Corrective] DOCUMENTATIONS) Miscellaneous 4x daily before meals and nightly Juwan Smith MD 10.1 Units at 03/25/24 0730 timolol (TIMOPTIC) 0.5 % ophthalmic solution 1 drop 1 drop Left Eye Daily Juwan Smith MD 1 drop at 03/25/24 0835 tiZANidine (ZANAFLEX) tablet 4 mg 4 mg Oral Nightly Juwan Smith MD 4 mg at 03/25/24 0334 traZODone (DESYREL) tablet 50 mg 50 mg Oral Nightly PRN Juwan Smith MD vancomycin (VANCOCIN) 1250 mg in dextrose 5 % 250 mL 1,250 mg Intravenous Q24H Floyd Rubin [facility],PharmD Medications Prior to Admission Medication Sig Dispense Refill Last Dose/Taking albuterol (PROVENTIL) 2.5 mg /3 mL (0.083 %) nebulizer solution Take 3 mL (2.5 mg total) by nebulization every 6 (six) hours as needed for wheezing or shortness of breath . 75 mL 3 albuterol 90 mcg/actuation inhaler Inhale 1 (one) puff every 4 to 6 hours as needed for shortness of breath or wheezing . 18 g 3 alcohol swabs PadM Apply 1 (one) Swab. topically 5 (five) times a day Clean area before administering insulin. . 150 each 5 atorvastatin (LIPITOR) 40 MG tablet Take 1 (one) tablet (40 mg total) by mouth nightly . 90 tablet 0 blood sugar diagnostic (glucose blood) strips by Miscellaneous route 3 (three) times a day As a backup to CGM to test blood sugar. One Touch Verio . 100 strip 5 busPIRone (BUSPAR) 30 MG tablet Take 1 (one) tablet (30 mg total) by mouth 2 (two) times a day . chlorthalidone (HYGROTON) 25 MG tablet Take 1 (one) tablet (25 mg total) by mouth daily . 90 tablet 1 citalopram (CELEXA) 40 MG tablet Take 1 (one) tablet (40 mg total) by mouth daily . 90 tablet 1 Dexcom G6 Vibrator Operator Misc Use as directed for continuous glucose monitoring . 1 each 0 Dexcom G6 Sensor Simran Use as directed for continuous glucose monitoring change every 10 days . 3 each 11 Dexcom G6 Transmitter Simran Use as directed for continuous glucose monitoring change every 3 months . 1 each 3 ergocalciferol (Vitamin D2) 1,250 mcg (50,000 unit) capsule Take 1 (one) capsule (50,000 Units total) by mouth once a week . 12 capsule 1 glucagon (Gvoke HypoPen 2-Pack) 1 mg/0.2 mL AtIn Inject 0.2 mL (1 mg total) under the skin as needed . 2 mL 1 inhalational spacing device inhaler Use as instructed . 1 each 2 insulin lispro (AdmeLOG,HumaLOG) 100 unit/mL injection Inject up to 150 units once daily via pump . 50 mL 5 lamoTRIgine (LAMICTAL) 25 MG tablet Take 1 (one) tablet (25 mg total) by mouth 2 (two) times a day . 60 tablet 2 lancets Misc 1 Lancet by Miscellaneous route 3 (three) times a day . 100 each 5 levETIRAcetam (KEPPRA) 1000 MG tablet Take 1 (one) tablet (1,000 mg total) by mouth 2 (two) times a day . 180 tablet 1 levothyroxine (SYNTHROID, LEVOTHROID) 75 MCG tablet Take 1 (one) tablet (75 mcg total) by mouth once daily . 90 tablet 0 lidocaine (LMX) 4 % cream Apply topically 3 (three) times a day . 90 g 3 lidocaine-prilocaine (EMLA) cream Apply topically as needed . 30 g 1 lisinopriL (PRINIVIL,ZESTRIL) 40 MG tablet Take 1 (one) tablet (40 mg total) by mouth daily . 90 tablet 1 loperamide (IMODIUM) 2 mg capsule Take 1 (one) capsule (2 mg total) by mouth as needed for diarrhea (Max dose 7 pills) . 20 capsule 1 loratadine (CLARITIN) 10 mg tablet Take 1 (one) tablet (10 mg total) by mouth daily . 90 tablet 1 metFORMIN (GLUCOPHAGE) 1000 MG tablet Take 1 (one) tablet (1,000 mg total) by mouth 2 (two) times a day . 60 tablet 5 metoprolol succinate (TOPROL-XL) 50 MG 24 hr tablet Take 1 (one) tablet (50 mg total) by mouth daily . 90 tablet 1 miscellaneous medical supply Misc 1 each by Miscellaneous route daily . 100 each 2 nortriptyline (PAMELOR) 25 MG capsule Take 1 (one) capsule (25 mg total) by mouth nightly . 90 capsule 1 nystatin (MYCOSTATIN) powder Apply topically 2 (two) times a day . 30 g 1 omeprazole (PRILOSEC) 40 MG capsule Take 1 (one) capsule (40 mg total) by mouth 2 (two) times a day . Omnipod 5 G6 Pods, Gen 5, Crtg Omnipod Insulin Refill Crtg ondansetron (ZOFRAN-ODT) 4 MG disintegrating tablet Dissolve 1 (one) tablet (4 mg total) on top of tongue every 8 (eight) hours as needed for nausea . 20 tablet 1 oxyCODONE-acetaminophen (PERCOCET) 5-325 mg per tablet Take 1 (one) tablet by mouth nightly as needed for pain (Days supply per fill: 30) . 30 tablet 0 pantoprazole (PROTONIX) 40 MG tablet Take 1 (one) tablet (40 mg total) by mouth daily . 90 tablet 1 pregabalin (LYRICA) 75 MG capsule Take 1 (one) capsule (75 mg total) by mouth 2 (two) times a day (Days supply per fill: 30) . 60 capsule 0 vitamin with Ca-Iron-FA 27-1 mg Tab Take 1 (one) tablet by mouth daily . QUEtiapine (SEROQUEL) 400 MG tablet Take 2 (two) tablets (800 mg total) by mouth nightly . 60 tablet 2 timolol (TIMOPTIC) 0.5 % ophthalmic solution Administer 1 (one) drop into the left eye daily . tiZANidine (Zanaflex) 4 MG tablet Take 2 tabs p.o. nightly . 60 tablet 0 traZODone (DESYREL) 50 MG tablet Take 1 (one) tablet (50 mg total) by mouth nightly as needed . 90 tablet 0 Shameka Castillo DPJoel documented in this encounter [facility] 03-31-2024 Note [facility] 03-31-2024 Note [facility] 03-30-2024 History of Present illness Narrative [facility] prescription request form complete for Omnipod / faxed documented in this encounter [facility] 03-30-2024 Note [facility] 03-30-2024 Note [facility] 03-30-2024 Note [facility] 03-29-2024 Note [facility] 03-29-2024 Note [facility] 03-28-2024 Note [facility] 03-28-2024 Note [facility] 03-28-2024 Note [facility] 03-27-2024 Note [facility] 03-26-2024 Note [facility] 03-26-2024 Note [facility] 03-25-2024 History and physical note Images from the original note were not included. [facility] [place] [facility] -- [facility] Patient Name: Addie Jean Baptiste : 1975 MR #: [id number] Admit Date: 03/24/2024 Physicians: Stephany Pelayo PA-C (Family); No ref. provider found (Referring) Addie Jean Baptiste is a 48 y.o. female patient of Stephany Pelayo PA-C with history of T2DM, HTN, bipolar disorder, and chronic back pain presented to [facility] on 03/25/2024 with left toe wound. Left diabetic toe osteomyelitis P/w worsening left foot big toe pain and swelling Afebrile; normal WBC on admission CRP 15.1 Xray L foot: Findings suggestive of first distal phalanx osteomyelitis Started on IV Zosyn and vancomycin Patient known to podiatry service. Dr. Castillo consulted Pain control CKD stage III Likely due to poorly controlled hypertension Serum creatinine 1.44 on admission. Has been 1.3-1.6 range since December Continue to monitor. Avoid nephrotoxic medication as able Sick sinus syndrome Initially underwent PPM implantation in 2011. In 2016 underwent MRI compatible PPM placement at [facility]. T2DM on insulin pump Diabetic peripheral neuropathy Last A1c 9.9 % in 03/22/2024 Home insulin regimen: insulin pump Pharmacy consulted to continue insulin pump Diabetic diet Hypertension Hyperlipidemia Continue metoprolol and SHAJI inhibitor Continue Lipitor Bipolar disorder Home meds including Celexa, BuSpar, Seroquel and Pamelor continued Seizure disorder Continue home lamictal Obesity Body mass index 47 Discussed dietary and lifestyle modifications Residence prior to admission: house or apartment Was patient transferred from outlying hospital or ED no Quality Measures DVT Prophylaxis: lovenox Chow Catheter: absent Medication Reconciliation: Verified Admitted with these risk variables:Chronic Kidney Disease. Please see assessment and plan for further details. Estimated Date of Discharge greater than 2 midnights Code Status Full Code; code status verified on 03/25/2024 with patient (capacity intact) Chief Complaint recurrent infection of left foot History of Present Illness Patient is a 48-year-old female with history of diabetes, recurrent diabetic foot infection presenting to the emergency department today for left great toe pain and drainage. She states that she is concerned her foot is infected. Her left foot great toe has had recurrent infections. No fevers or chills. She has had issues with diabetic wounds previously and follows with Dr. Castillo.Pt has not taken any antibiotics recently. Otherwise denies any fever, chills, chest pain, SOB, abdominal pain, N/V, diarrhea, constipation, dizziness, headache, or syncope. Past Medical History Past Medical History: Diagnosis Date Anxiety Bipolar 1 disorder (HCC) Bipolar disorder (HCC) Chronic back pain Coronary artery disease Depression Diabetes mellitus (HCC) Hypertension MRSA (methicillin resistant Staphylococcus aureus) Pacemaker Seizures (HCC) Stroke (HCC) Past Surgical History Past Surgical History: Procedure Laterality Date CHOLECYSTECTOMY FOOT SURGERY HYSTERECTOMY ORTHOPEDIC SURGERY left foot surgery PACEMAKER INSERTION Family History Family History Problem Relation Age of Onset Seizures Mother Diabetes Father Hypertension Father Diabetes type II Father Social History Social History Tobacco Use Smoking Status Former Current packs/day: 1.00 Average packs/day: 1 pack/day for 18.3 years (18.3 ttl pk-yrs) Types: Cigarettes Start date: 09/30/2014 Passive exposure: Current Smokeless Tobacco Never Tobacco Comments Vaping 6 mg nicotine Social History Substance and Sexual Activity Alcohol Use No Alcohol/week: 0.0 standard drinks of alcohol Social History Substance and Sexual Activity Drug Use Yes Types: Marijuana Comment: smoking as needed, last use thursday night Allergy Information I have reviewed the patient's allergies. Iodides, Ketorolac, Tramadol, Codeine, Propoxyphene n-acetaminophen, Adhesive, Compazine [prochlorperazine], Ct: iodinated contrast- oral and iv dye, Fentanyl, Ibuprofen, Latex, Linezolid, Lorazepam, Nsaids (non-steroidal anti-inflammatory drug), Vancomycin, and Propoxyphene Home Medications Home medications were reviewed. Review Of Systems All relevant systems have been reviewed and are negative except as noted in HPI or below Physical Examination BP (!) 166/97 Pulse (!) 109 Temp 97.2 F (36.2 C) (Temporal) Resp 18 Ht 5' 2 Wt 117.9 kg (260 lb) SpO2 98% BMI 47.55 kg/m General Appearance: alert; well appearing; in no acute distress HEENT: Head- normocephalic; Eyes- EOMI, sclera anicteric; Throat- mucous membranes moist Cardiovascular: regular rate and rhythm; normal S1, S2; no murmurs, rubs, clicks or gallops; peripheral edema absent Respiratory: lungs clear to auscultation; without wheezes, rales or rhonchi; on room air Abdomen: soft, non-tender, non-distended Neurological: oriented x 3; normal speech; no focal findings or movement disorder noted Musculoskeletal: Left big toe dressing present. Please see images attached below Skin: normal coloration Psych: normal mood and affect Results from last 7 days Lab Units 03/24/24 2253 WBC K/mcL 9.56 HGB g/dL 12.5 HEMOGLOBIN BG g/dL 13.0 PLT K/mcL 371 Results from last 7 days Lab Units 03/24/24 2253 SODIUM mmol/L 134* POTASSIUM mmol/L 4.6 CHLORIDE mmol/L 97* BUN mg/dL 24 CREATININE mg/dL 1.44* CALCIUM mg/dL 9.3 Results from last 7 days Lab Units 03/24/24 2253 AST U/L 16 ALT U/L 16 BILIRUBIN TOTAL mg/dL 0.5 ALK PHOS U/L 139 ALBUMIN g/dL 4.2 Scheduled Meds: atorvastatin 40 mg Oral Nightly busPIRone 30 mg Oral BID citalopram 40 mg Oral Daily enoxaparin (LOVENOX) injection 40 mg Subcutaneous Daily lispro insulin 0-15 Units Subcutaneous at bedtime insulin lispro 0-30 Units Subcutaneous TID AC levETIRAcetam 1,000 mg Oral BID levothyroxine 75 mcg Oral Daily lisinopriL 40 mg Oral Daily metoprolol succinate 50 mg Oral Daily nortriptyline 25 mg Oral Nightly pantoprazole 40 mg Oral Daily piperacillin-tazobactam (ZOSYN) extended infusion 3.375 g Intravenous Q8H pregabalin 75 mg Oral BID QUEtiapine 800 mg Oral Nightly sodium chloride (PF) 5 mL Intravenous Q8H SAMEER sodium chloride 0.9% 1,000 mL Intravenous Once timolol 1 drop Left Eye Daily tiZANidine 2 mg Oral Nightly vancomycin 2,500 mg Intravenous Once vancomycin per pharmacy 1 each Intravenous as indicated by pharmacokinetics Continuous Infusions: PRN Meds:.albuterol, oxyCODONE-acetaminophen, [COMPLETED] Insert peripheral IV AND Saline lock IV AND sodium chloride (PF) AND sodium chloride 0.9 %, Saline lock IV AND sodium chloride (PF) AND sodium chloride (PF) AND sodium chloride 0.9 %, traZODone Note: To expedite correspondence this note was generated by [employer] voice recognition software. The voice recognition software is inherently subject to errors including those of syntax and sound-alike substitutions which may escape proofreading. If such errors are discovered, or if there are any questions or concerns regarding the recommendations/plan of care, please contact the author of the note prior to undertaking the recommendations/plan of care. documented in this encounter [facility] 03-24-2024 Emergency department Note Associated Order(s): ECG 12- Lead Images from the original note were not included. [place] [id number] NAME: Addie Jean Baptiste AGE: 48 y.o. PCP: Stephany Pelayo PA-C CSN: [id number] Chief Complaint: Toe Pain CLINICAL IMPRESSION: 1. Osteomyelitis of great toe (HCC) 2. Diabetes mellitus due to underlying condition with hyperglycemia, with long-term current use of insulin (HCC) 3. SIRS (systemic inflammatory response syndrome) (HCC) 4. Elevated troponin EMERGENCY DEPARTMENT COURSE AND MEDICAL DECISION MAKING: Addie Jean Baptiste is a 48 y.o. female presenting to the emergency department with a chief complaint of Toe Pain. Medical Decision Making Notified of patient possibly being septic. Patient evaluated in the ED . She was noted to be hypertensive and tachycardic. She expresses concerns for a toe infection. She is diabetic. X-ray obtained and she is noted to have findings suggestive of osteomyelitis at the tuft of the first distal phalanx. The nurse had difficulty obtaining labs. Laboratory evaluation with no leukocytosis but she is noted to have lactic acidosis with a lactic acid level of 3.0. CRP and sedimentation rate elevated. Basic metabolic panel with a glucose of 646. No evidence of DKA. Troponin is elevated at 22. Patient is chest pain-free. She was provided with IV fluids. Blood cultures and urine cultures obtained. She was started on IV vancomycin and Zosyn. She was provided with pain control. Wound cultures obtained. She will be hospitalized for further evaluation and treatment. Physical Exam: Vital sign: Patient Vitals in the past 24 hrs: 03/25/24 0334, Resp:16 03/25/24 0253, Resp:16 03/25/24 0158, BP:(!) 153/92, Temp:97.7 F (36.5 C), Temp src:Oral, Resp:16, SpO2:93 %, Height:5' 2 , Weight:131.1 kg (289 lb 0.4 oz) 03/25/24 0156, BP:(!) 153/92, Temp:97.7 F (36.5 C), Temp src:Oral, Pulse:(!) 103, Resp:16, SpO2:93 % 03/25/24 0012, Pulse:(!) 109 03/24/24 2230, BP:(!) 166/97, Pulse:(!) 118, SpO2:98 % 03/24/24 2220, BP:(!) 144/103, Pulse:(!) 112, Resp:18, SpO2:99 % 03/24/24 2219, Resp:18 03/24/24 1913, BP:(!) 181/103, Temp:97.2 F (36.2 C), Temp src:Temporal, Pulse:(!) 114, Resp:18, SpO2:96 %, Height:5' 2 , Weight:117.9 kg (260 lb) Heart: Tachycardia Lungs: lungs clear to auscultation and respiratory effort normal Peripheral Pulses: peripheral pulses symmetrical, pedal pulses easily palpable bilateral, and capillary refill normal Capillary Refill: normal Plan: Initial lactate and blood cultures were obtained. and Broad spectrum antibiotics were initiated after initial blood culture Amount and/or Complexity of Data Reviewed Labs: ordered. Radiology: ordered. Details: New Results - Imaging Updated Order 03/24/242152 XR Toe(s) Left 2+ Views Performed: 03/24/242011 Final Impression: Findings suggest osteomyelitis of the tip of the tuft of the 1st distal phalanx. Workstation ID: [id number] Laura New Results as Viewed Risk Prescription drug management. Parenteral controlled substances. Decision regarding hospitalization. Medications Ordered/Given During ED Visit Medications sodium chloride (PF) (NS) flush 5 mL (has no administration in time range) And sodium chloride 0.9% (NS) (has no administration in time range) albuterol (PROVENTIL) 2.5 mg /3 mL (0.083 %) nebulizer solution 2.5 mg (has no administration in time range) atorvastatin (LIPITOR) tablet 40 mg ( Oral Canceled Entry 03/25/24399) busPIRone (BUSPAR) tablet 30 mg (has no administration in time range) citalopram (CELEXA) tablet 40 mg (has no administration in time range) levothyroxine (SYNTHROID, LEVOTHROID) tablet 75 mcg (has no administration in time range) lisinopriL (PRINIVIL,ZESTRIL) tablet 40 mg (has no administration in time range) metoprolol succinate (TOPROL-XL) 24 hr tablet 50 mg (has no administration in time range) nortriptyline (PAMELOR) capsule 25 mg (has no administration in time range) pantoprazole (PROTONIX) EC tablet 40 mg (has no administration in time range) oxyCODONE-acetaminophen (PERCOCET) 5-325 mg per tablet 1 tablet (1 tablet Oral Given 03/25/24333) pregabalin (LYRICA) capsule 75 mg (75 mg Oral Given 03/25/24333) QUEtiapine (SEROQUEL) tablet 800 mg ( Oral Canceled Entry 03/25/24399) timolol (TIMOPTIC) 0.5 % ophthalmic solution 1 drop (has no administration in time range) traZODone (DESYREL) tablet 50 mg (has no administration in time range) sodium chloride (PF) (NS) flush 5 mL (has no administration in time range) And sodium chloride (PF) (NS) flush 5 mL (has no administration in time range) And sodium chloride 0.9% (NS) (has no administration in time range) enoxaparin (LOVENOX) syringe 40 mg (has no administration in time range) vancomycin per pharmacy 1 each (has no administration in time range) piperacillin-tazobactam (ZOSYN) IVPB 3.375 g (premix) (has no administration in time range) tiZANidine (ZANAFLEX) tablet 4 mg (4 mg Oral Given 03/25/24 0334) Subcutaneous Insulin Pump (NURSING: Use this for BASAL RATE DOCUMENTATIONS) (has no administration in time range) And Subcutaneous Insulin Pump (NURSING: Use this for BOLUS [Prandial and Corrective] DOCUMENTATIONS) (has no administration in time range) naloxone (NARCAN) injection 0.1 mg (has no administration in time range) And naloxone (NARCAN) injection 0.4 mg (has no administration in time range) lamoTRIgine (LAMICTAL) tablet 25 mg (has no administration in time range) morphine syringe 4 mg (4 mg Intravenous Given 03/24/24 2219) sodium chloride 0.9% (NS) bolus 1,000 mL (0 mL Intravenous Stopped 03/25/24 0233) piperacillin-tazobactam (ZOSYN) IVPB 4.5 g (premix) (0 g Intravenous Stopped 03/25/24 0145) insulin regular (Humulin R, Novolin R) injection 10 Units (10 Units Intravenous Given 03/25/24 0100) vancomycin (VANCOCIN) 2,500 mg in sodium chloride 0.9 % (NS) 525 mL IVPB (2,500 mg Intravenous New Bag 03/25/24 0054) DISPOSITION: Patient is being hospitalize to telemetry New Prescriptions This print group is not available in inpatient encounters. Please contact a senior control systems engineer. --- HISTORY Chief Complaint: Toe Pain History of Present Illness: This is a 48-year-old female presenting to the emergency department today for left great toe pain and drainage. She states that she is concerned her foot is infected. She has had similar problems in the past. She states that she feels the pain under her toenail. She denies any injury. She is diabetic. Past Medical History: Past Medical History: Diagnosis Date Anxiety Bipolar 1 disorder (HCC) Bipolar disorder (HCC) Chronic back pain Coronary artery disease Depression Diabetes mellitus (HCC) Hypertension MRSA (methicillin resistant Staphylococcus aureus) Pacemaker Seizures (HCC) Stroke (HCC) Past Surgical History: Past Surgical History: Procedure Laterality Date CHOLECYSTECTOMY FOOT SURGERY HYSTERECTOMY ORTHOPEDIC SURGERY left foot surgery PACEMAKER INSERTION Family History: Family History Problem Relation Age of Onset Seizures Mother Diabetes Father Hypertension Father Diabetes type II Father Social History: Social History Socioeconomic History Marital status: Tobacco Use Smoking status: Former Current packs/day: 1.00 Average packs/day: 1 pack/day for 18.3 years (18.3 ttl pk-yrs) Types: Cigarettes Start date: 09/30/2014 Passive exposure: Current Smokeless tobacco: Never Tobacco comments: Vaping 6 mg nicotine Vaping Use Vaping status: Every Day Substances: Nicotine, Flavoring Devices: Pre-filled or refillable cartridge Substance and Sexual Activity Alcohol use: No Alcohol/week: 0.0 standard drinks of alcohol Drug use: Yes Types: Marijuana Comment: smoking as needed, last use thursday Social Drivers of Health Financial Resource Strain: Medium Risk (01/13/2024) Overall Financial Resource Strain (CARDIA) Difficulty of Paying Living Expenses: Somewhat hard Food Insecurity: No Food Insecurity (03/25/2024) Hunger Vital Sign Worried About Running Out of Food in the Last Year: Never true Ran Out of Food in the Last Year: Never true Recent Concern: Food Insecurity - Food Insecurity Present (01/12/2024) Hunger Vital Sign Worried About Running Out of Food in the Last Year: Sometimes true Ran Out of Food in the Last Year: Sometimes true Transportation Needs: No Transportation Needs (03/25/2024) PRAPARE - Transportation Lack of Transportation (Medical): No Lack of Transportation (Non-Medical): No Housing Stability: Low Risk (03/25/2024) Housing Stability Vital Sign Unable to Pay for Housing in the Last Year: No Number of Times Moved in the Last Year: 0 Homeless in the Last Year: No Recent Concern: Housing Stability - High Risk (01/12/2024) Housing Stability Vital Sign Unable to Pay for Housing in the Last Year: Yes Number of Times Moved in the Last Year: 1 Homeless in the Last Year: No Medications: Previous Medications Medication Sig albuterol (PROVENTIL) 2.5 mg /3 mL (0.083 %) nebulizer solution Take 3 mL (2.5 mg total) by nebulization every 6 (six) hours as needed for wheezing or shortness of breath . albuterol 90 mcg/actuation inhaler Inhale 1 (one) puff every 4 to 6 hours as needed for shortness of breath or wheezing . alcohol swabs PadM Apply 1 (one) Swab. topically 5 (five) times a day Clean area before administering insulin. . atorvastatin (LIPITOR) 40 MG tablet Take 1 (one) tablet (40 mg total) by mouth nightly . blood sugar diagnostic (glucose blood) strips by Miscellaneous route 3 (three) times a day As a backup to CGM to test blood sugar. One Touch Verio . busPIRone (BUSPAR) 30 MG tablet Take 1 (one) tablet (30 mg total) by mouth 2 (two) times a day . chlorthalidone (HYGROTON) 25 MG tablet Take 1 (one) tablet (25 mg total) by mouth daily . citalopram (CELEXA) 40 MG tablet Take 1 (one) tablet (40 mg total) by mouth daily . Dexcom G6 Vibrator Operator Misc Use as directed for continuous glucose monitoring . Dexcom G6 Sensor Simran Use as directed for continuous glucose monitoring change every 10 days . Dexcom G6 Transmitter Simran Use as directed for continuous glucose monitoring change every 3 months . ergocalciferol (Vitamin D2) 1,250 mcg (50,000 unit) capsule Take 1 (one) capsule (50,000 Units total) by mouth once a week . glucagon (Gvoke HypoPen 2-Pack) 1 mg/0.2 mL AtIn Inject 0.2 mL (1 mg total) under the skin as needed . inhalational spacing device inhaler Use as instructed . insulin lispro (AdmeLOG,HumaLOG) 100 unit/mL injection Inject up to 150 units once daily via pump . lamoTRIgine (LAMICTAL) 25 MG tablet Take 1 (one) tablet (25 mg total) by mouth 2 (two) times a day . lancets Misc 1 Lancet by Miscellaneous route 3 (three) times a day . levETIRAcetam (KEPPRA) 1000 MG tablet Take 1 (one) tablet (1,000 mg total) by mouth 2 (two) times a day . levothyroxine (SYNTHROID, LEVOTHROID) 75 MCG tablet Take 1 (one) tablet (75 mcg total) by mouth once daily . lidocaine (LMX) 4 % cream Apply topically 3 (three) times a day . lidocaine-prilocaine (EMLA) cream Apply topically as needed . lisinopriL (PRINIVIL,ZESTRIL) 40 MG tablet Take 1 (one) tablet (40 mg total) by mouth daily . loperamide (IMODIUM) 2 mg capsule Take 1 (one) capsule (2 mg total) by mouth as needed for diarrhea (Max dose 7 pills) . loratadine (CLARITIN) 10 mg tablet Take 1 (one) tablet (10 mg total) by mouth daily . metFORMIN (GLUCOPHAGE) 1000 MG tablet Take 1 (one) tablet (1,000 mg total) by mouth 2 (two) times a day . metoprolol succinate (TOPROL-XL) 50 MG 24 hr tablet Take 1 (one) tablet (50 mg total) by mouth daily . miscellaneous medical supply Misc 1 each by Miscellaneous route daily . nortriptyline (PAMELOR) 25 MG capsule Take 1 (one) capsule (25 mg total) by mouth nightly . nystatin (MYCOSTATIN) powder Apply topically 2 (two) times a day . omeprazole (PRILOSEC) 40 MG capsule Take 1 (one) capsule (40 mg total) by mouth 2 (two) times a day . Omnipod 5 G6 Pods, Gen 5, Crtg Omnipod Insulin Refill Crtg ondansetron (ZOFRAN-ODT) 4 MG disintegrating tablet Dissolve 1 (one) tablet (4 mg total) on top of tongue every 8 (eight) hours as needed for nausea . oxyCODONE-acetaminophen (PERCOCET) 5-325 mg per tablet Take 1 (one) tablet by mouth nightly as needed for pain (Days supply per fill: 30) . pantoprazole (PROTONIX) 40 MG tablet Take 1 (one) tablet (40 mg total) by mouth daily . pregabalin (LYRICA) 75 MG capsule Take 1 (one) capsule (75 mg total) by mouth 2 (two) times a day (Days supply per fill: 30) . vitamin with Ca-Iron-FA 27-1 mg Tab Take 1 (one) tablet by mouth daily . QUEtiapine (SEROQUEL) 400 MG tablet Take 2 (two) tablets (800 mg total) by mouth nightly . timolol (TIMOPTIC) 0.5 % ophthalmic solution Administer 1 (one) drop into the left eye daily . tiZANidine (Zanaflex) 4 MG tablet Take 2 tabs p.o. nightly . traZODone (DESYREL) 50 MG tablet Take 1 (one) tablet (50 mg total) by mouth nightly as needed . Allergies: Allergies Allergen Reactions Iodides Other (See Comments) Renal compromise Ketorolac Hives, Other (See Comments), Rash and GI Intolerance Messes with seizures Unsure of reaction Tramadol Hives, Rash, Other (See Comments) and GI Intolerance Codeine Other reaction(s): Aggressive Behavior Propoxyphene N-Acetaminophen GI Intolerance Adhesive Itching Compazine [Prochlorperazine] Other (See Comments) She reports Compazine made her feel anxious and grumpy Ct: Iodinated Contrast- Oral And Iv Dye Other (See Comments) Shuts my kidneys down Fentanyl Ibuprofen Other (See Comments) shuts kidney down Latex Dermatitis Linezolid Nausea And Vomiting and GI Intolerance Lorazepam Other (See Comments) Nsaids (Non-Steroidal Anti-Inflammatory Drug) shuts my kidney's down Vancomycin Other (See Comments) Shuts kidney down Propoxyphene GI Intolerance Review of Systems: Review of Systems Constitutional: Negative for chills and fever. Respiratory: Negative for cough, shortness of breath and wheezing. Cardiovascular: Negative for chest pain, palpitations and leg swelling. Gastrointestinal: Negative for abdominal pain, constipation, diarrhea, nausea and vomiting. Skin: Positive for wound. Negative for rash. Neurological: Negative for dizziness, syncope, weakness, light-headedness and headaches. All other systems reviewed and are negative. Positives and pertinent negatives as per HPI. All other systems were reviewed and are negative. PHYSICAL EXAM: Patient Vitals for the past 24 hrs: BP Temp Temp src Pulse Resp SpO2 Height Weight 03/25/24 0334 -- -- -- -- 16 -- -- -- 03/25/24 0253 -- -- -- -- 16 -- -- -- 03/25/24 0158 (!) 153/92 97.7 F (36.5 C) Oral -- 16 93 % 5' 2 131.1 kg (289 lb 0.4 oz) 03/25/24 0156 (!) 153/92 97.7 F (36.5 C) Oral (!) 103 16 93 % -- -- 03/25/24 0012 -- -- -- (!) 109 -- -- -- -- 03/24/24 2230 (!) 166/97 -- -- (!) 118 -- 98 % -- -- 03/24/24 2220 (!) 144/103 -- -- (!) 112 18 99 % -- -- 03/24/24 2219 -- -- -- -- 18 -- -- -- 03/24/24 1913 (!) 181/103 97.2 F (36.2 C) Temporal (!) 114 18 96 % 5' 2 117.9 kg (260 lb) Physical Exam Vitals and nursing note reviewed. Constitutional: General: She is not in acute distress. Appearance: She is well-developed. HENT: Mouth/Throat: Pharynx: Oropharynx is clear. Eyes: Conjunctiva/sclera: Conjunctivae normal. Cardiovascular: Rate and Rhythm: Normal rate. Musculoskeletal: Cervical back: Neck supple. Pulmonary: Effort: Pulmonary effort is normal. Skin: General: Skin is warm and dry. Comments: Dorsalis pedis and posterior tibial pulses +2. Sensation is intact. There is tenderness palpation involving the left great toe. The skin appears abraded with bloody discharge noted. No fluctuance or drainage noted. See photograph below for details. Neurological: Mental Status: She is alert and oriented to person, place, and time. Psychiatric: Mood and Affect: Mood normal. Behavior: Behavior normal. Patient and/or guardian has given verbal consent for clinical photographs to be taken and used in their electronic medical record. The patient and/or guardian was informed that the photograph will be used exclusively for their medical records and not for personal use, teaching, or publication. The patient and/or guardian was informed that their photograph will not be placed in public domain. The patient was shown the image and approved the image before being attached to their medical record. LABS & RADIOLOGICAL IMAGING (if done): Labs Reviewed BASIC METABOLIC PANEL - Abnormal; Notable for the following components: Result Value Sodium 134 (*) Chloride 97 (*) Glucose 646 (*) Creatinine 1.44 (*) eGFR 46 (*) All other components within normal limits Narrative: [facility] has implemented the eGFR calculation approach that does not have a coefficient for race that conforms to the NKF-ASN Task Force Recommendations. CRP, INFLAMMATION - Abnormal; Notable for the following components: CRP(Inflammation) 15.1 (*) All other components within normal limits SEDIMENTATION RATE - Abnormal; Notable for the following components: Sed Rate 62 (*) All other components within normal limits BLOOD GAS, VENOUS - Abnormal; Notable for the following components: pH, Venous 7.30 (*) pO2, Christiano 41 (*) HCO3, Christiano 22.3 (*) Base Excess, Christiano -3.8 (*) All other components within normal limits LACTIC ACID, WHOLE BLOOD - Abnormal; Notable for the following components: Lactic Acid 3.0 (*) All other components within normal limits HEPATIC FUNCTION PANEL - Abnormal; Notable for the following components: Total Protein 8.1 (*) All other components within normal limits URINALYSIS - Abnormal; Notable for the following components: Protein, Urine 100 (*) Glucose, Urine >=500 (*) Blood, Urine Moderate (*) Bacteria, Urine Rare (*) All other components within normal limits Narrative: Microscopic examination is performed on all urinalysis samples and only positive findings are reported. The test for blood on the chemical analytic portion of urinalysis may also be positive due to hemoglobinuria and myoglobinuria and if red blood cells are present they are quantified by microscopic examination. TROPONIN - Abnormal; Notable for the following components: Troponin T 22 (*) All other components within normal limits POC GLUCOSE - RALS - Abnormal; Notable for the following components: Glucose >500 (*) All other components within normal limits Narrative: Critical result acted upon time of test. Test performed at bedside. POC GLUCOSE - RALS - Abnormal; Notable for the following components: Glucose 469 (*) All other components within normal limits Narrative: Critical result acted upon time of test. Test performed at bedside. CBC WITH AUTO DIFFERENTIAL - Abnormal; Notable for the following components: Neutrophils Abs 7.35 (*) All other components within normal limits BLOOD CULTURE AEROBIC/ANAEROBIC BLOOD CULTURE AEROBIC/ANAEROBIC URINE AEROBIC CULTURE WOUND AEROBIC AND ANAEROBIC CULTURE CBC AND DIFFERENTIAL Narrative: The following orders were created for panel order CBC w/ Diff. Procedure Abnormality Status --------- ------ CBC Auto Differential[[id number]] Abnormal Final result Please view results for these tests on the individual orders. OBTAIN VENOUS BLOOD GASES AND PERFORM LACTIC ACID, PLASMA BASIC METABOLIC PANEL CBC POC GLUCOSE POC GLUCOSE POC GLUCOSE POC GLUCOSE POC GLUCOSE XR Toe(s) Left 2+ Views Final Result Findings suggest osteomyelitis of the tip of the tuft of the 1st distal phalanx. Workstation ID: [id number] PROCEDURES ECG 12- Lead Date/Time: 03/25/2024 3:49 AM Performed by: Ani Gonzales CNP Authorized by: Ani Gonzales CNP Rhythm: sinus rhythm and sinus tachycardia BPM: 109 NM Interval: 176 QRS Interval: 82 QT Interval: 328 Clinical impression: abnormal ECG and sinus tachycardia Ani Gonzales, MSN, PORTAL ADMINISTRATOR-BC, ENP-C Emergency Department Nurse Practitioner [facility] (Please note that portions of this note have been completed with a voice recognition software. Efforts were made to correct any errors, but occasionally words are mis-transcribed.) Ani Gonzales CNP 03/25/24 0350 Bed: 02 Expected date: Expected time: Means of arrival: Comments: SS Patient has a Port Pt ems pt has an infection in her left toe which is recurrent. Ctiy medic 29 documented in this encounter [facility] 03-24-2024 Telephone encounter Note Pt called - Jean is out of Percocet. Pharmacy changed to [facility] on refill request. Pt asked to let you know she is seeing nitrate operator on Thursday for possible surgery. [facility] 03-24-2024 Miscellaneous Notes Pt called - Jean is out of Percocet. Pharmacy changed to [facility] on refill request. Pt asked to let you know she is seeing nitrate operator on Thursday for possible surgery. documented in this encounter [facility] 03-22-2024 Note [facility] [address] [place] [address] Subjective Patient ID: Addie Jean Baptiste is a 48 y.o. female here for Chief Complaint Patient presents with Follow-up 4 week f/u Abdominal Cramping For a couple of weeks, diarrhea for 1 week After discussing the use of ambient listening and audio recording in generating medical documentation, the patient verbally consented to use of this technology for today's visit. History of Present Illness The patient presents for evaluation of multiple medical concerns as well as her 1 month BP follow-up. She is dealing with the loss of her mother from August 2023, which has led to feelings of failure and guilt. She missed an appointment with behavioral health and was informed that she was discharged prompting her to seek a new provider. She reports difficulty sleeping, often waking up at 3:30 AM. She has experienced visions at night for several years, which have recently become more frequent. She believes these visions are preventing her from sleeping. She is currently taking citalopram 20 mg daily and BuSpar twice daily, but does not find it helpful. Her other medications include Lamictal twice daily and Seroquel. Previously on Valium which helped her sleep, however told her I am unwilling to prescribe this medication. She has been experiencing abdominal pain for the past week, which she describes as similar to menstrual cramps, even though she had a hysterectomy 19 years ago. The pain is intermittent and severe enough to wake her up at night. She also reports nausea, vomiting, and diarrhea, but no fever. She has not had any recent surgeries or taken any antibiotics. She has not left her house recently and is not currently taking any stool softeners. She has a history of colonic polyps and is due for a colonoscopy. No blood in the stool. She had a seizure while walking to the bedside commode recently, which resulted in a fall and subsequent worsening bilateral knee pain. She is currently taking Keppra for her seizures and needs to call and schedule an appt with her neurologist. She also follows with pain management. Asking for lidocaine-prilocaine cream to treat a candidal rash beneath her R breast which has been helpful in the past with discomfort. Reports a wound on her central abdomen which has been present x1 month, draining bloody fluid often. Denied purulent drainage or fever. Wound has not significantly changed in size. Admittedly has not been checking her BP at home due to worsening depressive sx, unclear compliance with her medications. The patient wound benefit from a gel mattress topper due to mobility limitations related to her OA, COPD, low back pain, and L great toe ulcer. She has great difficulty changing positions due to these comorbidities and her body habitus. She also has a current pressure ulcer on her trunk for which I have referred her to wound care, and chronic urinary incontinence. Past medical/surgical history Past Medical History: Diagnosis Date Anxiety Bipolar 1 disorder (HCC) Bipolar disorder (HCC) Chronic back pain Coronary artery disease Depression Diabetes mellitus (HCC) Hypertension MRSA (methicillin resistant Staphylococcus aureus) Pacemaker Seizures (HCC) Stroke (HCC) Past Surgical History: Procedure Laterality Date CHOLECYSTECTOMY FOOT SURGERY HYSTERECTOMY ORTHOPEDIC SURGERY left foot surgery PACEMAKER INSERTION Family History Problem Relation Age of Onset Seizures Mother Diabetes Father Hypertension Father Diabetes type II Father Current Outpatient Medications Medication Sig Dispense Refill albuterol (PROVENTIL) 2.5 mg /3 mL (0.083 %) nebulizer solution Take 3 mL (2.5 mg total) by nebulization every 6 (six) hours as needed for wheezing or shortness of breath . 75 mL 3 albuterol 90 mcg/actuation inhaler Inhale 1 (one) puff every 4 to 6 hours as needed for shortness of breath or wheezing . 18 g 3 alcohol swabs PadM Apply 1 (one) Swab. topically 5 (five) times a day Clean area before administering insulin. . 150 each 5 atorvastatin (LIPITOR) 40 MG tablet Take 1 (one) tablet (40 mg total) by mouth nightly . 90 tablet 0 blood sugar diagnostic (glucose blood) strips by Miscellaneous route 3 (three) times a day As a backup to CGM to test blood sugar. One Touch Verio . 100 strip 5 busPIRone (BUSPAR) 30 MG tablet Take 1 (one) tablet (30 mg total) by mouth 2 (two) times a day . chlorthalidone (HYGROTON) 25 MG tablet Take 1 (one) tablet (25 mg total) by mouth daily . 90 tablet 1 Dexcom G6 Vibrator Operator Misc Use as directed for continuous glucose monitoring . 1 each 0 Dexcom G6 Sensor Simran Use as directed for continuous glucose monitoring change every 10 days . 3 each 11 Dexcom G6 Transmitter Simran Use as directed for continuous glucose monitoring change every 3 months . 1 each 3 glucagon (Gv (more content not included)... [facility] 03-22-2024 History of Present illness Narrative [facility] INTERNAL MEDICINE [facility] [place] [address] Subjective Patient ID: Addie Jean Baptiste is a 48 y.o. female here for Chief Complaint Patient presents with Follow-up 4 week f/u Abdominal Cramping For a couple of weeks, diarrhea for 1 week After discussing the use of ambient listening and audio recording in generating medical documentation, the patient verbally consented to use of this technology for today's visit. History of Present Illness The patient presents for evaluation of multiple medical concerns as well as her 1 month BP follow-up. She is dealing with the loss of her mother from August 2023, which has led to feelings of failure and guilt. She missed an appointment with behavioral health and was informed that she was discharged prompting her to seek a new provider. She reports difficulty sleeping, often waking up at 3:30 AM. She has experienced visions at night for several years, which have recently become more frequent. She believes these visions are preventing her from sleeping. She is currently taking citalopram 20 mg daily and BuSpar twice daily, but does not find it helpful. Her other medications include Lamictal twice daily and Seroquel. Previously on Valium which helped her sleep, however told her I am unwilling to prescribe this medication. She has been experiencing abdominal pain for the past week, which she describes as similar to menstrual cramps, even though she had a hysterectomy 19 years ago. The pain is intermittent and severe enough to wake her up at night. She also reports nausea, vomiting, and diarrhea, but no fever. She has not had any recent surgeries or taken any antibiotics. She has not left her house recently and is not currently taking any stool softeners. She has a history of colonic polyps and is due for a colonoscopy. No blood in the stool. She had a seizure while walking to the bedside commode recently, which resulted in a fall and subsequent worsening bilateral knee pain. She is currently taking Keppra for her seizures and needs to call and schedule an appt with her neurologist. She also follows with pain management. Asking for lidocaine-prilocaine cream to treat a candidal rash beneath her R breast which has been helpful in the past with discomfort. Reports a wound on her central abdomen which has been present x1 month, draining bloody fluid often. Denied purulent drainage or fever. Wound has not significantly changed in size. Admittedly has not been checking her BP at home due to worsening depressive sx, unclear compliance with her medications. The patient wound benefit from a gel mattress topper due to mobility limitations related to her OA, COPD, low back pain, and L great toe ulcer. She has great difficulty changing positions due to these comorbidities and her body habitus. She also has a current pressure ulcer on her trunk for which I have referred her to wound care, and chronic urinary incontinence. Past medical/surgical history Past Medical History: Diagnosis Date Anxiety Bipolar 1 disorder (HCC) Bipolar disorder (HCC) Chronic back pain Coronary artery disease Depression Diabetes mellitus (HCC) Hypertension MRSA (methicillin resistant Staphylococcus aureus) Pacemaker Seizures (HCC) Stroke (HCC) Past Surgical History: Procedure Laterality Date CHOLECYSTECTOMY FOOT SURGERY HYSTERECTOMY ORTHOPEDIC SURGERY left foot surgery PACEMAKER INSERTION Family History Problem Relation Age of Onset Seizures Mother Diabetes Father Hypertension Father Diabetes type II Father Current Outpatient Medications Medication Sig Dispense Refill albuterol (PROVENTIL) 2.5 mg /3 mL (0.083 %) nebulizer solution Take 3 mL (2.5 mg total) by nebulization every 6 (six) hours as needed for wheezing or shortness of breath . 75 mL 3 albuterol 90 mcg/actuation inhaler Inhale 1 (one) puff every 4 to 6 hours as needed for shortness of breath or wheezing . 18 g 3 alcohol swabs PadM Apply 1 (one) Swab. topically 5 (five) times a day Clean area before administering insulin. . 150 each 5 atorvastatin (LIPITOR) 40 MG tablet Take 1 (one) tablet (40 mg total) by mouth nightly . 90 tablet 0 blood sugar diagnostic (glucose blood) strips by Miscellaneous route 3 (three) times a day As a backup to CGM to test blood sugar. One Touch Verio . 100 strip 5 busPIRone (BUSPAR) 30 MG tablet Take 1 (one) tablet (30 mg total) by mouth 2 (two) times a day . chlorthalidone (HYGROTON) 25 MG tablet Take 1 (one) tablet (25 mg total) by mouth daily . 90 tablet 1 Dexcom G6 Vibrator Operator Misc Use as directed for continuous glucose monitoring . 1 each 0 Dexcom G6 Sensor Simran Use as directed for continuous glucose monitoring change every 10 days . 3 each 11 Dexcom G6 Transmitter Simran Use as directed for continuous glucose monitoring change every 3 months . 1 each 3 glucagon (Gvoke HypoPen 2-Pack) 1 mg/0.2 mL AtIn Inject 0.2 mL (1 mg total) under the skin as needed . 2 mL 1 inhalational spacing device inhaler Use as instructed . 1 each 2 insulin lispro (AdmeLOG,HumaLOG) 100 unit/mL injection Inject up to 150 units once daily via pump . 50 mL 5 lamoTRIgine (LAMICTAL) 25 MG tablet Take 1 (one) tablet (25 mg total) by mouth 2 (two) times a day . 60 tablet 2 lancets Misc 1 Lancet by Miscellaneous route 3 (three) times a day . 100 each 5 levETIRAcetam (KEPPRA) 1000 MG tablet Take 1 (one) tablet (1,000 mg total) by mouth 2 (two) times a day . 180 tablet 1 levothyroxine (SYNTHROID, LEVOTHROID) 75 MCG tablet Take 1 (one) tablet (75 mcg total) by mouth once daily . 90 tablet 0 lidocaine (LMX) 4 % cream Apply topically 3 (three) times a day . 90 g 3 lisinopriL (PRINIVIL,ZESTRIL) 40 MG tablet Take 1 (one) tablet (40 mg total) by mouth daily . 90 tablet 1 loratadine (CLARITIN) 10 mg tablet Take 1 (one) tablet (10 mg total) by mouth daily . 90 tablet 1 metFORMIN (GLUCOPHAGE) 1000 MG tablet Take 1 (one) tablet (1,000 mg total) by mouth 2 (two) times a day . 60 tablet 5 metoprolol succinate (TOPROL-XL) 50 MG 24 hr tablet Take 1 (one) tablet (50 mg total) by mouth daily . 90 tablet 1 miscellaneous medical supply [facility] 1 each by Miscellaneous route daily . 100 each 2 nortriptyline (PAMELOR) 25 MG capsule Take 1 (one) capsule (25 mg total) by mouth nightly . 90 capsule 1 omeprazole (PRILOSEC) 40 MG capsule Take 1 (one) capsule (40 mg total) by mouth 2 (two) times a day . Omnipod 5 G6 Pods, Gen 5, Crtg Omnipod Insulin Refill Crtg ondansetron (ZOFRAN-ODT) 4 MG disintegrating tablet Dissolve 1 (one) tablet (4 mg total) on top of tongue every 8 (eight) hours as needed for nausea . 20 tablet 1 oxyCODONE-acetaminophen (PERCOCET) 5-325 mg per tablet Take 1 (one) tablet by mouth nightly as needed for pain (Days supply per fill: 30) . 30 tablet 0 pantoprazole (PROTONIX) 40 MG tablet Take 1 (one) tablet (40 mg total) by mouth daily . 90 tablet 1 pregabalin (LYRICA) 75 MG capsule Take 1 (one) capsule (75 mg total) by mouth 2 (two) times a day (Days supply per fill: 30) . 60 capsule 0 vitamin with Ca-Iron-FA 27-1 mg Tab Take 1 (one) tablet by mouth daily . QUEtiapine (SEROQUEL) 400 MG tablet Take 2 (two) tablets (800 mg total) by mouth nightly . 60 tablet 2 timolol (TIMOPTIC) 0.5 % ophthalmic solution Administer 1 (one) drop into the left eye daily . tiZANidine (Zanaflex) 4 MG tablet Take 2 tabs p.o. nightly . 60 tablet 0 traZODone (DESYREL) 50 MG tablet Take 1 (one) tablet (50 mg total) by mouth nightly as needed . 90 tablet 0 citalopram (CELEXA) 40 MG tablet Take 1 (one) tablet (40 mg total) by mouth daily . 90 tablet 1 lidocaine-prilocaine (EMLA) cream Apply topically as needed . 30 g 1 loperamide (IMODIUM) 2 mg capsule Take 1 (one) capsule (2 mg total) by mouth as needed for diarrhea (Max dose 7 pills) . 20 capsule 1 nystatin (MYCOSTATIN) powder Apply topically 2 (two) times a day . 30 g 1 No current facility-administered medications for this visit. Allergies Allergen Reactions Iodides Other (See Comments) Renal compromise Ketorolac Hives, Other (See Comments), Rash and GI Intolerance Messes with seizures Unsure of reaction Tramadol Hives, Rash, Other (See Comments) and GI Intolerance Codeine Other reaction(s): Aggressive Behavior Propoxyphene N-Acetaminophen GI Intolerance Adhesive Itching Compazine [Prochlorperazine] Other (See Comments) She reports Compazine made her feel anxious and grumpy Ct: Iodinated Contrast- Oral And Iv Dye Other (See Comments) Shuts my kidneys down Fentanyl Ibuprofen Other (See Comments) shuts kidney down Latex Dermatitis Linezolid Nausea And Vomiting and GI Intolerance Lorazepam Other (See Comments) Nsaids (Non-Steroidal Anti-Inflammatory Drug) shuts my kidney's down Vancomycin Other (See Comments) Shuts kidney down Propoxyphene GI Intolerance reports that she has quit smoking. Her smoking use included cigarettes. She started smoking about 9 years ago. She has a 18.3 pack-year smoking history. She has been exposed to tobacco smoke. She has never used smokeless tobacco. She reports current drug use. Drug: Marijuana. She reports that she does not drink alcohol. reports that she has quit smoking. Her smoking use included cigarettes. She started smoking about 9 years ago. She has a 18.3 pack-year smoking history. She has been exposed to tobacco smoke. She has never used smokeless tobacco. Current medication list and allergies reviewed and updated with patient. Past medical history reviewed. Past Surgical History reviewed. Personal history Social History reviewed. Family history Family History reviewed. REVIEW OF SYSTEMS: Review of Systems Constitutional: Negative for activity change, appetite change, fatigue, fever and unexpected weight change. HENT: Negative for hearing loss. Eyes: Negative for visual disturbance. Respiratory: Negative for shortness of breath and wheezing. Cardiovascular: Negative for chest pain and leg swelling. Gastrointestinal: Positive for abdominal pain, diarrhea, nausea and vomiting. Genitourinary: Negative for flank pain. Musculoskeletal: Positive for arthralgias. Negative for gait problem and joint swelling. Skin: Positive for rash and wound. Neurological: Positive for seizures. Negative for dizziness, facial asymmetry and headaches. Psychiatric/Behavioral: Positive for dysphoric mood and sleep disturbance. Negative for agitation and behavioral problems. The patient is nervous/anxious. All other systems reviewed and are negative. PHYSICAL EXAM: Vitals: 03/22/24 1041 03/22/24 1123 BP: (!) 142/101 (!) 142/94 BP Location: Left arm Left arm Patient Position: Sitting Sitting BP Cuff Size: X-large Adult X-large Adult Pulse: (!) 103 SpO2: 98% Height: 5' 2 Physical Exam Vitals and nursing note reviewed. Constitutional: General: She is not in acute distress. Appearance: Normal appearance. She is not toxic-appearing or diaphoretic. HENT: Head: Normocephalic and atraumatic. Eyes: Extraocular Movements: Extraocular movements intact. Conjunctiva/sclera: Conjunctivae normal. Neck: Thyroid: No thyromegaly. Cardiovascular: Rate and Rhythm: Normal rate and regular rhythm. Heart sounds: No murmur heard. Pulmonary: Effort: Pulmonary effort is normal. Breath sounds: Normal breath sounds. No wheezing. Abdominal: General: Abdomen is flat. Palpations: Abdomen is soft. Comments: +central abdominal wound noted, quarter sized, bloody drainage, no surrounding erythema Musculoskeletal: Cervical back: Neck supple. Skin: General: Skin is warm and dry. Comments: Candidal rash noted beneath R breast Neurological: General: No focal deficit present. Mental Status: She is alert and oriented to person, place, and time. Mental status is at baseline. Psychiatric: Mood and Affect: Mood normal. Behavior: Behavior normal. Results ASSESSMENT/PLAN: Assessment & Plan Assessment & Plan HTN Overall improved although not checking BP routinely at home. For now continue chlorthalidone 25mg daily, lisinopril 40mg daily, and Toprol XL 50mg daily. Keep a BP log at home. 2. Diarrhea Unclear etiology, associated with N/V and abdominal cramping. Ordered CMP, CBC, stool PCR, and C.diff. Maintain hydration and use Imodium PRN. Avoid stool softeners. Referral to GI placed as she is due for screening colonoscopy. 3. Abdominal pain. Further orders pending CMP and CBC results. Continue PPI. 4. Abdominal Wound Dehiscence Present x1 month, no acute infection. Given wound care supplies, referral to wound clinic placed. 5. Bipolar DO With worsening depression/anxiety due to mother's passing. A referral will be made to reestablish care with a new psychiatrist. The dosage of citalopram will be increased to 40 mg to assess its effectiveness. She reports not sleeping well and experiencing visions at night. She is currently on BuSpar twice a day, Celexa once a day, Lamictal twice a day, and Seroquel. Valium was requested however I will not prescribe this medication. 6. Seizure DO She reports experiencing a seizure recently, unclear details. Keppra level ordered. Reports compliance. Encouraged her to schedule f/u with neurology. 7. Chronic Pain of Both Knees Follow-up pain management, ordered x-ray bilateral knees. 8. Urinary incontinence Per history, continue incontinence supplies. 9. Candidiasis Ordered nystatin powder and lidocaine/prilocaine cream at patient's request 10. Abnormal Skin Pigmentation Follow-up with derm Follow-up Return in 4 months for a routine check-up. Diagnoses and all orders for this visit: Primary hypertension Diarrhea, unspecified type - Stool/GI PCR Panel; Future - Clostridium Difficile Testing; Future - Comprehensive Metabolic Panel; Future - CBC and Differential; Future - loperamide (IMODIUM) 2 mg capsule; Take 1 (one) capsule (2 mg total) by mouth as needed for diarrhea (Max dose 7 pills) . - Ambulatory referral to Gastroenterology; Future Abdominal cramping - Comprehensive Metabolic Panel; Future - CBC and Differential; Future - Ambulatory referral to Gastroenterology; Future Abdominal wound dehiscence, initial encounter - Ambulatory referral to Wound Clinic; Future Bipolar 1 disorder (HCC) - Ambulatory referral to Behavioral Health; Future - citalopram (CELEXA) 40 MG tablet; Take 1 (one) tablet (40 mg total) by mouth daily . Seizures (HCC) - Levetiracetam Level; Future Chronic pain of both knees - XR Knees Bilateral 2 Views Each (Standard); Future Urinary incontinence, unspecified type Candidiasis - lidocaine-prilocaine (EMLA) cream; Apply topically as needed . - nystatin (MYCOSTATIN) powder; Apply topically 2 (two) times a day . I am managing and treating Addie Jean Baptiste's complex chronic condition(s) serving as the focal point for the patient s care for consistency and continuity over time. Condition and plan discussed with patient in detail, patient agrees with plan. Risk, benefits, and side effects of medicines discussed with the patient, patient agrees with plan. Recent laboratory / radiology / other study results discussed with patient. For any new medications prescribed today, patient was educated about indications for the medication, how to take the medication and potential side effects of the medications. Patient to return to office: Return in about 4 months (around 07/22/2024) for Next scheduled follow up. Stephany Pelayo PA-C documented in this encounter [facility] 03-08-2024 Telephone encounter Note Per med list, patient not taking Tizanadine. But she requested a refill. [facility] 03-08-2024 Miscellaneous Notes Per med list, patient not taking Tizanadine. But she requested a refill. documented in this encounter [facility] 03-01-2024 Note PROGRESS :This repor t has been cancelled. [facility] 02-11-2024 Note [facility] INTERNAL MEDICINE [facility] [place] [address] Patient: Addie Jean Baptiste is a 48 y.o. female. Chief Complaint Patient presents with Follow-up Check b12 level, supplies for toe Heartburn worse-can we increase med dose HPI: Patient in seen and examined in the office for her routine 3-month followup. Patient was discharged from [facility] on January 17 and subsequently saw Rafaela Verdin for a transition of care visit for a left diabetic toe ulcer. Patient was discharged on p.o. doxycycline 100 mg twice daily for 10 days and instructed to follow up with Podiatry. Despite Rafaela Verdin sending in the medication to the pharmacy, the patient states she still has not started her doxycycline which I highly encouraged her to do so. Also, has not followed up with Podiatry, which I encouraged her to call and reschedule. Patient states the wound continues to drain yellow fluid. No fever. Asking for wound care supplies in the office today. Patient asking about discoloration to her bilateral lower extremities, which has been present for the past few weeks, unclear etiology. Patient asking for a nebulizer machine and supplies to be sent to [employer]. Patient states she continues to have issues with headaches, has had a frontal headache for the past 2 days, which she described as intractable, similar to sinus pressure. Has been taking Tylenol and tizanidine without relief of her symptoms. Patient has been following with Dr. Sanchez for her type 2 diabetes, follows with Dr. Head for her history of seizures. Is seeing Dr. Velez for pain management and follows with Dr. Garcia for her history of bipolar disorder. Given patient's very elevated blood pressures as well as headache in the office today, I did recommend that she go to the ER for further evaluation; however, patient refused. Asking for her PPI medication to be increased due to uncontrolled GERD; however, she is at maximum dosing currently. Will plan to discuss dietary changes. Patient encouraged to return to the office in 4 weeks for next scheduled followup and blood pressure recheck unless needed sooner. No other acute concerns including chest pain, shortness of breath, abdominal pain, or nausea/vomiting. Diabetic foot and eye exams are up to date. Mammogram has been ordered so she needs to call and schedule. Colorectal cancer screening has been postponed. Past medical/surgical history Past Medical History: Diagnosis Date Anxiety Bipolar 1 disorder (HCC) Bipolar disorder (HCC) Chronic back pain Coronary artery disease Depression Diabetes mellitus (HCC) Hypertension MRSA (methicillin resistant Staphylococcus aureus) Pacemaker Seizures (HCC) Stroke (HCC) Past Surgical History: Procedure Laterality Date CHOLECYSTECTOMY FOOT SURGERY HYSTERECTOMY ORTHOPEDIC SURGERY left foot surgery PACEMAKER INSERTION Family History Problem Relation Age of Onset Seizures Mother Diabetes Father Hypertension Father Diabetes type II Father Current Outpatient Medications Medication Sig Dispense Refill albuterol (PROVENTIL) 2.5 mg /3 mL (0.083 %) nebulizer solution Take 3 mL (2.5 mg total) by nebulization every 6 (six) hours as needed for wheezing or shortness of breath . 75 mL 3 albuterol 90 mcg/actuation inhaler Inhale 1 (one) puff every 4 to 6 hours as needed for shortness of breath or wheezing . 18 g 3 alcohol swabs PadM Apply 1 (one) Swab. topically 5 (five) times a day Clean area before administering insulin. . 150 each 5 atorvastatin (LIPITOR) 40 MG tablet Take 1 (one) tablet (40 mg total) by mouth nightly . 90 tablet 0 blood sugar diagnostic (glucose blood) strips by Miscellaneous route 3 (three) times a day As a backup to CGM to test blood sugar. One Touch Verio . 100 strip 5 busPIRone (BUSPAR) 30 MG tablet Take 1 (one) tablet (30 mg total) by mouth 2 (two) times a day . citalopram (CELEXA) 20 MG tablet Take 1 (one) tablet (20 mg total) by mouth daily . 30 tablet 2 Dexcom G6 Vibrator Operator Misc Use as directed for continuous glucose monitoring . 1 each 0 Dexcom G6 Sensor Simran Use as directed for continuous glucose monitoring change every 10 days . 3 each 11 Dexcom G6 Transmitter Simran Use as directed for continuous glucose monitoring change every 3 months . 1 each 3 glucagon (Gvoke HypoPen 2-Pack) 1 mg/0.2 mL AtIn Inject 0.2 mL (1 mg total) under the skin as needed . 2 mL 1 insulin lispro (AdmeLOG,HumaLOG) 100 unit/mL injection Inject up to 150 units once daily via pump . 50 mL 5 lamoTRIgine (LAMICTAL) 25 MG tablet Take 1 (one) tablet (25 mg total) by mouth 2 (two) times a day . 60 tablet 2 lancets Misc 1 Lancet by Miscellaneous route 3 (three) times a day . 100 each 5 levETIRAcetam (KEPPRA) 1000 MG tablet Take 1 (one) tablet (1,000 mg total) by mouth 2 (two) times a day . 180 tablet 1 levothyroxine (SYNTHROID, LEVOTHROID) 75 (more content not included)... [facility] 02-08-2024 Telephone encounter Note Patient asking for refill of: QUEtiapine (SEROQUEL) 400 MG tablet Take 2 (two) tablets (800 mg total) by mouth nightly . 10/09/23 traZODone (DESYREL) 50 MG tablet Take 1 (one) tablet (50 mg total) by mouth nightly as needed. 10/30/23 lamoTRIgine (LAMICTAL) 25 MG tablet 1 tab daily for 2 weeks and then twice a day thereafter . 10/07/23 citalopram (CELEXA) 20 MG tablet Take 1 (one) tablet (20 mg total) by mouth daily. 10/07/23 Pharmacy: [facility] pharmacy Patient last seen: 10/07/23 Patient next scheduled appt: 03/01/24 [facility] 02-08-2024 Miscellaneous Notes Patient asking for refill of: QUEtiapine (SEROQUEL) 400 MG tablet Take 2 (two) tablets (800 mg total) by mouth nightly . 10/09/23 traZODone (DESYREL) 50 MG tablet Take 1 (one) tablet (50 mg total) by mouth nightly as needed. 10/30/23 lamoTRIgine (LAMICTAL) 25 MG tablet 1 tab daily for 2 weeks and then twice a day thereafter . 10/07/23 citalopram (CELEXA) 20 MG tablet Take 1 (one) tablet (20 mg total) by mouth daily. 10/07/23 Pharmacy: [facility] pharmacy Patient last seen: 10/07/23 Patient next scheduled appt: 03/01/24 documented in this encounter [facility] 02-03-2024 Telephone encounter Note PA requires tablets please double check the rx I sent you please. [facility] 02-03-2024 Miscellaneous Notes PA requires tablets please double check the rx I sent you please. Rcvd call from pharmacist at [facility]. RX states to take 1 capsule 2 times a day as needed, then it says 2 tabs p.o. nightly. Qty 60. Please correct and resend. documented in this encounter [facility] 02-03-2024 Telephone encounter Note Rcvd call from pharmacist at [facility]. RX states to take 1 capsule 2 times a day as needed, then it says 2 tabs p.o. nightly. Qty 60. Please correct and resend. [facility] 02-02-2024 Instructions Jim Velez DO - 02/02/2024 4:17 PM EDT 1. Left great toe infection treated with oral antibiotics 2. water therapy followed by land therapy currently on hold due to blood pressure to infection 3. Discussed dietary modification and weight loss 4. Resume Lyrica 75 mg 1 p.o. twice daily 5. Change Percocet 5/325 1 p.o. every 6 hours prn x 30 days for acute left toe pain. Patient will start this with her current prescription filled recently on 01/26/2024. Patient will require early refill. 6. Continue tizanidine 4 mg 2 p.o. nightly only documented in this encounter [facility] 02-02-2024 Note [facility] Interventional Pain Management Office Note Patient Name: Addie Organ Referring Physician: No ref. provider found Date of : 1975 PCP: Stephany Pelayo PA-C Date of Service: 02/08/24 Last office visit: 12/08/2023 Plan of care last office visit: 1. Obtain UDS 2. Order water therapy followed by land therapy 3. Discussed dietary modification and weight loss 4. Resume Lyrica 75 mg 1 p.o. twice daily 5. Discussed starting Percocet 5/325 1 p.o. nightly as needed after review of UDS 6. Continue tizanidine 4 mg 2 p.o. nightly only After discussing the use of ambient listening and audio recording in generating medical documentation, the patient verbally consented to use of this technology for today's visit. History of Present Illness Chief complaint: Lower back pain and left great toe The patient, Addie, presents with severe left foot pain due to an infection in her left great toe. She has a history of recurrent infections and diabetic neuropathy, and is currently on antibiotics and taking Percocet for pain. She also reports back pain, incontinence, and recent kidney function issues related to high blood pressure. She has not participated in water therapy due to left foot pain issues. - The patient was hospitalized from January 17 for five to seven days, during which she received Percocet every four hours for pain management. - Her toe is currently described as open flesh, with no amputation performed at this point. - The patient has a history of recurrent infections in the affected toe, occurring annually. - She mentions a previous hospitalization at [facility], where a foot amputation was considered but refused by the patient. - The infection has now spread to her right foot as well. CT scan left foot without contrast 01/13/2024 1. There appears to be an ulcer along the distal aspect of the 1st toe with likely adjacent cellulitis. 2. No CT evidence of osteomyelitis in the 1st toe or remainder of the foot. 3. 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 No acute fracture is identified. There are corticated bony densities adjacent to the medial malleolus consistent with sequela of remote trauma. 4. 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 Pain characteristics: - She reports experiencing pain radiating from her waist down to her legs and feet. -She describes the pain as sharp and burning, with varying degrees of intensity. - She experiences nocturnal burning pain in her feet, legs, and kicking, which makes it difficult for her to return to sleep. - Resting in her hospital bed with her legs elevated alleviates her pain, but consistently using a heating pad does not. -VAS 9 out of 10 left toe, 8/10 for back pain Functionality: -She uses a cane at home and primarily uses a hospital bed, primarily for bathroom access. - She participated in water therapy a few years ago and is considering water aerobics. Additional medical info: -Her gait is unstable, leading to frequent falls. - She manages to get 4 to 5 hours of sleep per night. - She has had multiple falls this year, including a hand injury from a fall early Thursday morning. -She is incontinent of both stool and urine Presence of spinal cord stimulator: no Presence of intrathecal pump: no Results XR lumbar spine 07/28/23 1. No acute fracture or traumatic malalignment. 2. Moderate degenerative endplate changes lumbar spine changes otherwise negative. 3. Question of focal enteritis right upper quadrant. Lumbar imaging 07/23/2023 CT scan shows mild findings in the lower back and midback, disc degeneration, multiple bone spurs developing in the back, and disc bulging causing spinal stenosis at L3-4, L4-5, and L5-S1. OARRS/NARxCheck: REVIEWED ON TODAY'S controlled substance agreement signed: 12/08/23 Date of last drug screen: 12/08/23 Past Medical History Past Medical History: Diagnosis Date Anxiety Bipolar 1 disorder (HCC) Bipolar disorder (HCC) Chronic back pain Coronary artery disease Depression Diabetes mellitus (HCC) Hypertension MRSA (methicillin resistant Staphylococcus aureus) Pacemaker Seizures (HCC) Stroke (HCC) Past Surgical History Past Surgical History: Procedure Laterality Date CHOLECYSTECTOMY FOOT SURGERY HYSTERECTOMY ORTHOPEDIC SURGERY left foot surgery PACEMAKER INSERTION Social History Social History Tobacco Use Smoking status: Former Current packs/day: 1.00 Average packs/day: 1 pack/day for 18.2 years (18.2 ttl pk-yrs) Types: Cigarettes Start date: 09/30/2014 Passive exposure: Current Smokeless tobacco: Never Tobacco comments: Vaping 6 mg nicotine Vaping Use Vaping status: Every Day Substances: Nicotine, Flavoring Devices: Pre-filled or refillabl (more content not included)... [facility] 02-02-2024 History of Present illness Narrative [facility] Interventional Pain Management Office Note Patient Name: Addie Organ Referring Physician: No ref. provider found Date of : 1975 PCP: Stephany Pelayo PA-C Date of Service: 02/08/24 Last office visit: 12/08/2023 Plan of care last office visit: 1. Obtain UDS 2. Order water therapy followed by land therapy 3. Discussed dietary modification and weight loss 4. Resume Lyrica 75 mg 1 p.o. twice daily 5. Discussed starting Percocet 5/325 1 p.o. nightly as needed after review of UDS 6. Continue tizanidine 4 mg 2 p.o. nightly only After discussing the use of ambient listening and audio recording in generating medical documentation, the patient verbally consented to use of this technology for today's visit. History of Present Illness Chief complaint: Lower back pain and left great toe The patient, Addie, presents with severe left foot pain due to an infection in her left great toe. She has a history of recurrent infections and diabetic neuropathy, and is currently on antibiotics and taking Percocet for pain. She also reports back pain, incontinence, and recent kidney function issues related to high blood pressure. She has not participated in water therapy due to left foot pain issues. - The patient was hospitalized from January 17 for five to seven days, during which she received Percocet every four hours for pain management. - Her toe is currently described as open flesh, with no amputation performed at this point. - The patient has a history of recurrent infections in the affected toe, occurring annually. - She mentions a previous hospitalization at [facility], where a foot amputation was considered but refused by the patient. - The infection has now spread to her right foot as well. CT scan left foot without contrast 01/13/2024 1. There appears to be an ulcer along the distal aspect of the 1st toe with likely adjacent cellulitis. 2. No CT evidence of osteomyelitis in the 1st toe or remainder of the foot. 3. 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 No acute fracture is identified. There are corticated bony densities adjacent to the medial malleolus consistent with sequela of remote trauma. 4. 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 Pain characteristics: - She reports experiencing pain radiating from her waist down to her legs and feet. -She describes the pain as sharp and burning, with varying degrees of intensity. - She experiences nocturnal burning pain in her feet, legs, and kicking, which makes it difficult for her to return to sleep. - Resting in her hospital bed with her legs elevated alleviates her pain, but consistently using a heating pad does not. -VAS 9 out of 10 left toe, 8/10 for back pain Functionality: -She uses a cane at home and primarily uses a hospital bed, primarily for bathroom access. - She participated in water therapy a few years ago and is considering water aerobics. Additional medical info: -Her gait is unstable, leading to frequent falls. - She manages to get 4 to 5 hours of sleep per night. - She has had multiple falls this year, including a hand injury from a fall early Thursday morning. -She is incontinent of both stool and urine Presence of spinal cord stimulator: no Presence of intrathecal pump: no Results XR lumbar spine 07/28/23 1. No acute fracture or traumatic malalignment. 2. Moderate degenerative endplate changes lumbar spine changes otherwise negative. 3. Question of focal enteritis right upper quadrant. Lumbar imaging 07/23/2023 CT scan shows mild findings in the lower back and midback, disc degeneration, multiple bone spurs developing in the back, and disc bulging causing spinal stenosis at L3-4, L4-5, and L5-S1. OARRS/NARxCheck: REVIEWED ON TODAY'S OV Date controlled substance agreement signed: 12/08/23 Date of last drug screen: 12/08/23 Past Medical History Past Medical History: Diagnosis Date Anxiety Bipolar 1 disorder (HCC) Bipolar disorder (HCC) Chronic back pain Coronary artery disease Depression Diabetes mellitus (HCC) Hypertension MRSA (methicillin resistant Staphylococcus aureus) Pacemaker Seizures (HCC) Stroke (HCC) Past Surgical History Past Surgical History: Procedure Laterality Date CHOLECYSTECTOMY FOOT SURGERY HYSTERECTOMY ORTHOPEDIC SURGERY left foot surgery PACEMAKER INSERTION Social History Social History Tobacco Use Smoking status: Former Current packs/day: 1.00 Average packs/day: 1 pack/day for 18.2 years (18.2 ttl pk-yrs) Types: Cigarettes Start date: 09/30/2014 Passive exposure: Current Smokeless tobacco: Never Tobacco comments: Vaping 6 mg nicotine Vaping Use Vaping status: Every Day Substances: Nicotine, Flavoring Devices: Pre-filled or refillable cartridge Substance Use Topics Alcohol use: No Alcohol/week: 0.0 standard drinks of alcohol Drug use: Yes Types: Marijuana Comment: smoking as needed, last use thursday night Family History family history includes Diabetes in her father; Diabetes type II in her father; Hypertension in her father; Seizures in her mother. PACU Vitals 02/02/24 1604 BP: (!) 181/108 Pulse: 96 Resp: 18 SpO2: 96% Body mass index is 51.21 kg/m . Wt Readings from Last 3 Encounters: 02/02/24 127 kg (280 lb) 01/27/24 126.6 kg (279 lb) 01/18/24 130.5 kg (287 lb 11.2 oz) Temp Readings from Last 3 Encounters: 01/18/24 97.7 F (36.5 C) (Oral) 01/09/24 98 F (36.7 C) (Oral) 12/07/23 99.2 F (37.3 C) (Oral) BP Readings from Last 3 Encounters: 02/02/24 (!) 181/108 01/27/24 (!) 139/90 01/18/24 (!) 140/78 Pulse Readings from Last 3 Encounters: 02/02/24 96 01/27/24 90 01/18/24 65 Physical Exam General: Patient is right-hand dominant. She is seated in a wheelchair. Patient has a hospital bed at home. She also has a walker at home with bedside commode. She is primarily immobile. Patient is morbidly obese Lungs: Clear to auscultation bilaterally. No wheezing, rales, or rhonchi. Heart: Regular rate and rhythm. No bruits or murmurs are noted. Musculoskeletal: Positive straight leg raise noted bilaterally at the L5 dermatome. Full knee extension to 90 degrees is unable to be performed in a seated position. Leg strength is only 3 out of 5 at both quads. Decreased strength noted with abduction and adduction. Diminished sensory pattern changes noted with light touch along both legs of all dermatomes due to peripheral neuropathy. Diminished L4 reflex noted bilaterally. Increased sensitivity with light touch throughout the entire thoracic and lumbar paraspinal muscle region with palpation. -Left foot boot noted with dressing present Medications Active Home Medications Medication Sig Take Last Dose On Take Morning of Surgery Comment(s) albuterol (PROVENTIL) 2.5 mg /3 mL (0.083 %) nebulizer solution Take 3 mL (2.5 mg total) by nebulization every 6 (six) hours as needed for wheezing or shortness of breath . albuterol 90 mcg/actuation inhaler Inhale 1 (one) puff every 4 to 6 hours as needed for shortness of breath or wheezing . alcohol swabs PadM Apply 1 (one) Swab. topically 5 (five) times a day Clean area before administering insulin. . atorvastatin (LIPITOR) 40 MG tablet Take 1 (one) tablet (40 mg total) by mouth nightly . blood sugar diagnostic (glucose blood) strips by Miscellaneous route 3 (three) times a day As a backup to CGM to test blood sugar. One Touch Verio . busPIRone (BUSPAR) 30 MG tablet Take 1 (one) tablet (30 mg total) by mouth 2 (two) times a day . chlorthalidone (HYGROTON) 25 MG tablet Take 1 (one) tablet (25 mg total) by mouth daily . cyanocobalamin (B-12) 1000 MCG tablet Take 1 (one) tablet (1,000 mcg total) by mouth daily Reasons: [facility]. Dexcom G6 Vibrator Operator Misc Use as directed for continuous glucose monitoring . Dexcom G6 Sensor Simran Use as directed for continuous glucose monitoring change every 10 days . Dexcom G6 Transmitter Simran Use as directed for continuous glucose monitoring change every 3 months . divalproex (DEPAKOTE) 500 MG delayed release (DR) tablet Take 1 (one) tablet (500 mg total) by mouth 2 (two) times a day . ergocalciferol (Vitamin D2) 1,250 mcg (50,000 unit) capsule Take 1 (one) capsule (50,000 Units total) by mouth once a week . glucagon (Gvoke HypoPen 2-Pack) 1 mg/0.2 mL AtIn Inject 0.2 mL (1 mg total) under the skin as needed . insulin lispro (AdmeLOG,HumaLOG) 100 unit/mL injection Inject up to 150 units once daily via pump . lancets Misc 1 Lancet by Miscellaneous route 3 (three) times a day . levETIRAcetam (KEPPRA) 1000 MG tablet Take 1 (one) tablet (1,000 mg total) by mouth 2 (two) times a day . levothyroxine (SYNTHROID, LEVOTHROID) 75 MCG tablet Take 1 (one) tablet (75 mcg total) by mouth once daily . lidocaine (LMX) 4 % cream Apply topically 3 (three) times a day . lisinopriL (PRINIVIL,ZESTRIL) 30 MG tablet Take 1 (one) tablet (30 mg total) by mouth daily . metFORMIN (GLUCOPHAGE) 1000 MG tablet Take 1 (one) tablet (1,000 mg total) by mouth 2 (two) times a day . metoprolol succinate (TOPROL-XL) 50 MG 24 hr tablet Take 1 (one) tablet (50 mg total) by mouth daily . miscellaneous medical supply Misc 1 each by Miscellaneous route daily . nortriptyline (PAMELOR) 25 MG capsule Take 1 (one) capsule (25 mg total) by mouth nightly . omeprazole (PRILOSEC) 40 MG capsule Take 1 (one) capsule (40 mg total) by mouth 2 (two) times a day . Omnipod 5 G6 Pods, Gen 5, Crtg Omnipod Insulin Refill Crtg ondansetron (ZOFRAN-ODT) 4 MG disintegrating tablet Dissolve 1 (one) tablet (4 mg total) on top of tongue every 8 (eight) hours as needed for nausea . oxyCODONE-acetaminophen (PERCOCET) 5-325 mg per tablet Take 1 (one) tablet by mouth nightly as needed for pain (Days supply per fill: 30) . pantoprazole (PROTONIX) 40 MG tablet Take 1 (one) tablet (40 mg total) by mouth daily . polyethylene glycol (GLYCOLAX) 17 gram/dose powder Take 17 (seventeen) g by mouth daily as needed (constipation) . timolol (TIMOPTIC) 0.5 % ophthalmic solution Administer 1 (one) drop into the left eye daily . citalopram (CELEXA) 20 MG tablet Take 1 (one) tablet (20 mg total) by mouth daily . lamoTRIgine (LAMICTAL) 25 MG tablet Take 1 (one) tablet (25 mg total) by mouth 2 (two) times a day . pregabalin (LYRICA) 75 MG capsule Take 1 (one) capsule (75 mg total) by mouth 2 (two) times a day (Days supply per fill: 30) . QUEtiapine (SEROQUEL) 400 MG tablet Take 2 (two) tablets (800 mg total) by mouth nightly . tiZANidine (ZANAFLEX) 4 MG capsule Take 1 (one) capsule (4 mg total) by mouth See Admin Instructions Take 2 tabs p.o. nightly . tiZANidine (Zanaflex) 4 MG tablet Take 2 tabs p.o. nightly . traZODone (DESYREL) 50 MG tablet Take 1 (one) tablet (50 mg total) by mouth nightly as needed . Encounter Diagnoses Name Primary? DDD (degenerative disc disease), lumbar Lumbar radiculopathy Other chronic pain Myofascial pain syndrome Chronic pain syndrome Yes Debilitated patient Assessment & Plan 1. Left great toe infection treated with oral antibiotics 2. Water therapy followed by land therapy currently on hold due to blood pressure to infection 3. Discussed dietary modification and weight loss 4. Resume Lyrica 75 mg 1 p.o. twice daily 5. Change Percocet 5/325 1 p.o. every 6 hours prn x 30 days for acute left toe pain. Patient will start this with her current prescription filled recently on 01/26/2024. Patient will require early refill. 6. Continue tizanidine 4 mg 2 p.o. nightly only I will continue to monitor for addiction and aberrant behavior, will use opiates with goal of weaning to lowest effective dose, will maximize doses of neuropathic agents and adjuvant therapies to manage pain, increase function, and maximize coping skills.. For any new medications prescribed today, patient was educated about indications for the medication, how to take the medication and potential side effects of the medications. We have discussed the findings on this office visit. The discussion included a complete verbal explanation of the examination results, diagnosis and current treatment plan. The treatment plan is discussed, covering the risk and benefits as well as possible side effects. The patient's questions were addressed. The patient verbalizes understanding and agreement with planned treatment. The patient is reminded that there is a risk of addiction. Patient has been counseled about the risk and benefit of opioid medications. The patient has been encourged to explore non-medication alternatives to manage pain. The patient is subject to being randomly assessed by oral/urine drug screening and/or pill count as needed to monitor patient compliance and adherance to the plan of care. NARCAN AVAILABILITY OPTIONS ARE DISCUSSED WITH ALL PATIENTS ON OPIOIDS Jim Velez D.O. Interventional Pain Management [facility] documented in this encounter [facility] 01-27-2024 Note HPI Addie Jean Baptiste is a 48 y.o. female Chief Complaint Patient presents with Follow-up Hosp follow up-left big toe Addie Organ presents for hospital follow-up. She was seen at [facility] on 01/12/24 - 01/18/24 with L diabetic toe ulcer. She was started on doxycycline BID x 10 days and advised to follow up with podiatry on 01/27/24. Patient reports she has had this ulcer for years - reports it usually heals with regular wound care but it shows up every year. Reports since being home it has been saturated in blood. Reports she doesn't have any dressing supplies. She had an appointment with podiatry this morning but missed the appt due to a severe headache. She has not been to pharmacy to fruit or nut picker her antibiotic. Reports she is in a lot of pain with her toe - has upcoming appointment with pain management and would like to re-start percocets that she was taking in the hospital for the foot ulcer Hospital course as noted below: Left diabetic toe ulcer P/w 4 day history of left toe ulcer with purulent drainage Afebrile; normal WBC CRP 8.2, ESR 40 Xray L foot: Forefoot soft tissue swelling without an acute osseous abnormality. S/p zosyn Seen by podiatry CT L foot: ulcer along the distal aspect of the 1st toe with likely adjacent cellulitis. No CT evidence of osteomyelitis in the 1st toe or remainder of the foot MRI could not be obtained due to incompatibility with ICD Pain under control discharge on PO doxy 100 mg twice daily for 10 days Follow-up w/ podiatry in clinic on 01/26 Podiatry Plan of care: - OR Plans: none - ABX: PO Doxy on discharge - DSG: betadine gauze bandage - WBS: heel weight bearing with marian shoe - XR : reviewed. CT reviewed, no osteomyelitis Acute kidney injury Likely due to poorly controlled hypertension creatinine 1.6 (baseline ~1.1-1.2) S/p IV fluids Renal ultrasound normal Counseled about tighter blood pressure control Left sided paresthesias, resolved No focal deficits on exam CT head negative T2DM, with current long-term use of insulin Diabetic peripheral neuropathy Last A1c 9.2% in 09/2023 Home insulin regimen: insulin pump Continue with lantus and SSI Counseled about tighter glycemic control Hypertension Continue metoprolol and SHAJI inhibitor Seizure disorder Continue home keppra Obesity Body mass index is 45.73 kg/m . Discussed dietary and lifestyle modifications STOPPED MEDICATIONS hydrOXYzine 25 MG tablet Commonly known as: ATARAX hydrOXYzine 50 MG capsule Commonly known as: VISTARIL metoprolol tartrate 25 MG tablet Commonly known as: LOPRESSOR tiZANidine 4 MG tablet Commonly known as: ZANAFLEX Patient Active Problem List Diagnosis Hypertension S/P placement of cardiac pacemaker Type 2 diabetes mellitus with diabetic polyneuropathy, with long-term current use of insulin ([facility]) Bipolar 1 disorder ([facility]) Seizures ([facility]) Chronic chest pain GERD (gastroesophageal reflux disease) Hypothyroidism Diabetic peripheral neuropathy ([facility]) Insomnia Generalized weakness Diabetic ulcer of right foot associated with type 2 diabetes mellitus ([facility]) Muscle spasms of both lower extremities Bowel incontinence Vitamin B12 deficiency Vitamin D deficiency Cigarette nicotine dependence COPD (chronic obstructive pulmonary disease) ([facility]) Left-sided weakness History of stroke Visual loss, left eye Weight gain Family history of pulmonary fibrosis Family history of dementia Urinary incontinence Chronic headaches Hypercholesterolemia CKD (chronic kidney disease) Retinal hemorrhage Diabetic ulcer of left great toe ([facility]) Current Outpatient Medications: albuterol (PROVENTIL) 2.5 mg /3 mL (0.083 %) nebulizer solution, Take 3 mL (2.5 mg total) by nebulization every 6 (six) hours as needed for wheezing or shortness of breath ., Disp: 75 mL, Rfl: 3 albuterol 90 mcg/actuation inhaler, Inhale 1 (one) puff every 4 to 6 hours as needed for shortness of breath or wheezing ., Disp: 18 g, Rfl: 3 alcohol swabs PadM, Apply 1 (one) Swab. topically 5 (five) times a day Clean area before administering insulin. ., Disp: 150 each, Rfl: 5 blood sugar diagnostic (glucose blood) strips, by Miscellaneous route 3 (three) times a day As a backup to CGM to test blood sugar. One Touch Verio ., Disp: 100 strip, Rfl: 5 busPIRone (BUSPAR) 30 MG tablet, Take 1 (one) tablet (30 mg total) by mouth 2 (two) times a day ., Disp: , Rfl: chlorthalidone (HYGROTON) 25 MG tablet, Take 1 (one) tablet (25 mg total) by mouth daily ., Disp: 90 tablet, Rfl: 1 citalopram (CELEXA) 20 MG tablet, Take 1 (one) tablet (20 mg total) by mouth daily ., Disp: 30 tablet, Rfl: 2 cyanocobalamin (B-12) 1000 MCG tablet, Take 1 (one) tablet (1,000 mcg total) by mouth daily Reasons: [facility]., Disp: 90 tablet, Rfl: 1 Dexcom G6 Vibrator Operator Mis, Use as directed for continuous glucose monitoring ., Disp: 1 each, Rfl: 0 Dexcom G6 Sensor Simran, Use as direct (more content not included)... [facility] 01-27-2024 History of Present illness Narrative HPI Addie Jean Baptiste is a 48 y.o. female Chief Complaint Patient presents with Follow-up Hosp follow up-left big toe Addie Jean Baptiste presents for hospital follow-up. She was seen at [facility] on 01/12/24 - 01/18/24 with L diabetic toe ulcer. She was started on doxycycline BID x 10 days and advised to follow up with podiatry on 01/27/24. Patient reports she has had this ulcer for years - reports it usually heals with regular wound care but it shows up every year. Reports since being home it has been saturated in blood. Reports she doesn't have any dressing supplies. She had an appointment with podiatry this morning but missed the appt due to a severe headache. She has not been to pharmacy to fruit or nut picker her antibiotic. Reports she is in a lot of pain with her toe - has upcoming appointment with pain management and would like to re-start percocets that she was taking in the hospital for the foot ulcer Hospital course as noted below: Left diabetic toe ulcer P/w 4 day history of left toe ulcer with purulent drainage Afebrile; normal WBC CRP 8.2, ESR 40 Xray L foot: Forefoot soft tissue swelling without an acute osseous abnormality. S/p zosyn Seen by podiatry CT L foot: ulcer along the distal aspect of the 1st toe with likely adjacent cellulitis. No CT evidence of osteomyelitis in the 1st toe or remainder of the foot MRI could not be obtained due to incompatibility with ICD Pain under control discharge on PO doxy 100 mg twice daily for 10 days Follow-up w/ podiatry in clinic on 01/26 Podiatry Plan of care: - OR Plans: none - ABX: PO Doxy on discharge - DSG: betadine gauze bandage - WBS: heel weight bearing with marian shoe - XR : reviewed. CT reviewed, no osteomyelitis Acute kidney injury Likely due to poorly controlled hypertension creatinine 1.6 (baseline ~1.1-1.2) S/p IV fluids Renal ultrasound normal Counseled about tighter blood pressure control Left sided paresthesias, resolved No focal deficits on exam CT head negative T2DM, with current long-term use of insulin Diabetic peripheral neuropathy Last A1c 9.2% in 09/2023 Home insulin regimen: insulin pump Continue with lantus and SSI Counseled about tighter glycemic control Hypertension Continue metoprolol and SHAJI inhibitor Seizure disorder Continue home keppra Obesity Body mass index is 45.73 kg/m . Discussed dietary and lifestyle modifications STOPPED MEDICATIONS hydrOXYzine 25 MG tablet Commonly known as: ATARAX hydrOXYzine 50 MG capsule Commonly known as: VISTARIL metoprolol tartrate 25 MG tablet Commonly known as: LOPRESSOR tiZANidine 4 MG tablet Commonly known as: ZANAFLEX Patient Active Problem List Diagnosis Hypertension S/P placement of cardiac pacemaker Type 2 diabetes mellitus with diabetic polyneuropathy, with long-term current use of insulin (HCC) Bipolar 1 disorder (HCC) Seizures ([facility]) Chronic chest pain GERD (gastroesophageal reflux disease) Hypothyroidism Diabetic peripheral neuropathy ([facility]) Insomnia Generalized weakness Diabetic ulcer of right foot associated with type 2 diabetes mellitus (HCC) Muscle spasms of both lower extremities Bowel incontinence Vitamin B12 deficiency Vitamin D deficiency Cigarette nicotine dependence COPD (chronic obstructive pulmonary disease) (HCC) Left-sided weakness History of stroke Visual loss, left eye Weight gain Family history of pulmonary fibrosis Family history of dementia Urinary incontinence Chronic headaches Hypercholesterolemia CKD (chronic kidney disease) Retinal hemorrhage Diabetic ulcer of left great toe (HCC) Current Outpatient Medications: albuterol (PROVENTIL) 2.5 mg /3 mL (0.083 %) nebulizer solution, Take 3 mL (2.5 mg total) by nebulization every 6 (six) hours as needed for wheezing or shortness of breath ., Disp: 75 mL, Rfl: 3 albuterol 90 mcg/actuation inhaler, Inhale 1 (one) puff every 4 to 6 hours as needed for shortness of breath or wheezing ., Disp: 18 g, Rfl: 3 alcohol swabs PadM, Apply 1 (one) Swab. topically 5 (five) times a day Clean area before administering insulin. ., Disp: 150 each, Rfl: 5 blood sugar diagnostic (glucose blood) strips, by Miscellaneous route 3 (three) times a day As a backup to CGM to test blood sugar. One Touch Verio ., Disp: 100 strip, Rfl: 5 busPIRone (BUSPAR) 30 MG tablet, Take 1 (one) tablet (30 mg total) by mouth 2 (two) times a day ., Disp: , Rfl: chlorthalidone (HYGROTON) 25 MG tablet, Take 1 (one) tablet (25 mg total) by mouth daily ., Disp: 90 tablet, Rfl: 1 citalopram (CELEXA) 20 MG tablet, Take 1 (one) tablet (20 mg total) by mouth daily ., Disp: 30 tablet, Rfl: 2 cyanocobalamin (B-12) 1000 MCG tablet, Take 1 (one) tablet (1,000 mcg total) by mouth daily Reasons: [facility]., Disp: 90 tablet, Rfl: 1 Dexcom G6 Vibrator Operator [facility], Use as directed for continuous glucose monitoring ., Disp: 1 each, Rfl: 0 Dexcom G6 Sensor Simran, Use as directed for continuous glucose monitoring change every 10 days ., Disp: 3 each, Rfl: 11 Dexcom G6 Transmitter Simran, Use as directed for continuous glucose monitoring change every 3 months ., Disp: 1 each, Rfl: 3 divalproex (DEPAKOTE) 500 MG delayed release (DR) tablet, Take 1 (one) tablet (500 mg total) by mouth 2 (two) times a day ., Disp: , Rfl: ergocalciferol (Vitamin D2) 1,250 mcg (50,000 unit) capsule, Take 1 (one) capsule (50,000 Units total) by mouth once a week ., Disp: 12 capsule, Rfl: 1 glucagon (Gvoke HypoPen 2-Pack) 1 mg/0.2 mL AtIn, Inject 0.2 mL (1 mg total) under the skin as needed ., Disp: 2 mL, Rfl: 1 insulin lispro (AdmeLOG,HumaLOG) 100 unit/mL injection, Inject up to 150 units once daily via pump ., Disp: 50 mL, Rfl: 5 lamoTRIgine (LAMICTAL) 25 MG tablet, Take 1 tab daily for 2 weeks and then twice a day thereafter ., Disp: 30 tablet, Rfl: 2 lancets Misc, 1 Lancet by Miscellaneous route 3 (three) times a day ., Disp: 100 each, Rfl: 5 levETIRAcetam (KEPPRA) 1000 MG tablet, Take 1 (one) tablet (1,000 mg total) by mouth 2 (two) times a day ., Disp: 180 tablet, Rfl: 1 lidocaine (LMX) 4 % cream, Apply topically 3 (three) times a day ., Disp: 90 g, Rfl: 3 miscellaneous medical supply Misc, 1 each by Miscellaneous route daily ., Disp: 100 each, Rfl: 2 nortriptyline (PAMELOR) 25 MG capsule, Take 1 (one) capsule (25 mg total) by mouth nightly ., Disp: 90 capsule, Rfl: 1 omeprazole (PRILOSEC) 40 MG capsule, Take 1 (one) capsule (40 mg total) by mouth 2 (two) times a day ., Disp: , Rfl: Omnipod Insulin Refill Crtg, , Disp: , Rfl: ondansetron (ZOFRAN-ODT) 4 MG disintegrating tablet, Dissolve 1 (one) tablet (4 mg total) on top of tongue every 8 (eight) hours as needed for nausea ., Disp: 20 tablet, Rfl: 1 oxyCODONE-acetaminophen (PERCOCET) 5-325 mg per tablet, Take 1 (one) tablet by mouth nightly as needed for pain (Days supply per fill: 30) Start: 12/24/23., Disp: 30 tablet, Rfl: 0 pantoprazole (PROTONIX) 40 MG tablet, Take 1 (one) tablet (40 mg total) by mouth daily ., Disp: 90 tablet, Rfl: 0 polyethylene glycol (GLYCOLAX) 17 gram/dose powder, Take 17 (seventeen) g by mouth daily as needed (constipation) ., Disp: 238 g, Rfl: 1 pregabalin (LYRICA) 75 MG capsule, Take 1 (one) capsule (75 mg total) by mouth 2 (two) times a day (Days supply per fill: 30) ., Disp: 60 capsule, Rfl: 0 QUEtiapine (SEROQUEL) 400 MG tablet, Take 2 (two) tablets (800 mg total) by mouth nightly ., Disp: 60 tablet, Rfl: 2 timolol (TIMOPTIC) 0.5 % ophthalmic solution, Administer 1 (one) drop into the left eye daily ., Disp: , Rfl: traZODone (DESYREL) 50 MG tablet, Take 1 (one) tablet (50 mg total) by mouth nightly as needed ., Disp: 90 tablet, Rfl: 0 atorvastatin (LIPITOR) 40 MG tablet, Take 1 (one) tablet (40 mg total) by mouth nightly ., Disp: 90 tablet, Rfl: 0 doxycycline hyclate (VIBRAMYCIN) 100 MG capsule, Take 1 (one) capsule (100 mg total) by mouth 2 (two) times a day for 10 days ., Disp: 20 capsule, Rfl: 0 levothyroxine (SYNTHROID, LEVOTHROID) 75 MCG tablet, Take 1 (one) tablet (75 mcg total) by mouth once daily ., Disp: 90 tablet, Rfl: 0 lisinopriL (PRINIVIL,ZESTRIL) 30 MG tablet, Take 1 (one) tablet (30 mg total) by mouth daily ., Disp: 90 tablet, Rfl: 1 metFORMIN (GLUCOPHAGE) 1000 MG tablet, Take 1 (one) tablet (1,000 mg total) by mouth 2 (two) times a day ., Disp: 60 tablet, Rfl: 5 metoprolol succinate (TOPROL-XL) 50 MG 24 hr tablet, Take 1 (one) tablet (50 mg total) by mouth daily ., Disp: 90 tablet, Rfl: 1 Allergies Allergen Reactions Iodides Other (See Comments) Renal compromise Ketorolac Hives, Other (See Comments), Rash and GI Intolerance Messes with seizures Unsure of reaction Tramadol Hives, Rash, Other (See Comments) and GI Intolerance Codeine Other reaction(s): Aggressive Behavior Propoxyphene N-Acetaminophen GI Intolerance Adhesive Itching Compazine [Prochlorperazine] Other (See Comments) She reports Compazine made her feel anxious and grumpy Ct: Iodinated Contrast- Oral And Iv Dye Other (See Comments) Shuts my kidneys down Fentanyl Ibuprofen Other (See Comments) shuts kidney down Latex Dermatitis Linezolid Nausea And Vomiting and GI Intolerance Lorazepam Other (See Comments) Nsaids (Non-Steroidal Anti-Inflammatory Drug) shuts my kidney's down Vancomycin Other (See Comments) Shuts kidney down Propoxyphene GI Intolerance Past Medical History: Diagnosis Date Anxiety Bipolar 1 disorder (HCC) Bipolar disorder (HCC) Chronic back pain Coronary artery disease Depression Diabetes mellitus (HCC) Hypertension MRSA (methicillin resistant Staphylococcus aureus) Pacemaker Seizures (HCC) Stroke (HCC) Family History Problem Relation Age of Onset Seizures Mother Diabetes Father Hypertension Father Diabetes type II Father Social History Socioeconomic History Marital status: Tobacco Use Smoking status: Former Current packs/day: 1.00 Average packs/day: 1 pack/day for 18.1 years (18.1 ttl pk-yrs) Types: Cigarettes Start date: 09/30/2014 Passive exposure: Current Smokeless tobacco: Never Tobacco comments: Vaping 6 mg nicotine Vaping Use Vaping status: Every Day Substances: Nicotine, Flavoring Devices: Pre-filled or refillable cartridge Substance and Sexual Activity Alcohol use: No Alcohol/week: 0.0 standard drinks of alcohol Drug use: Yes Types: Marijuana Comment: smoking as needed, last use thursday night Social Determinants of Health Financial Resource Strain: Medium Risk (01/13/2024) Overall Financial Resource Strain (CARDIA) Difficulty of Paying Living Expenses: Somewhat hard Food Insecurity: Food Insecurity Present (01/12/2024) Hunger Vital Sign Worried About Running Out of Food in the Last Year: Sometimes true Ran Out of Food in the Last Year: Sometimes true Transportation Needs: No Transportation Needs (01/12/2024) PRAPARE - Transportation Lack of Transportation (Medical): No Lack of Transportation (Non-Medical): No Housing Stability: High Risk (01/12/2024) Housing Stability Vital Sign Unable to Pay for Housing in the Last Year: Yes Number of Times Moved in the Last Year: 1 Homeless in the Last Year: No I have reviewed patient's medical and surgical history, allergies, and current list of medications and have updated the chart where appropriate. Review of Systems Constitutional: Negative for chills, diaphoresis, fatigue and fever. Respiratory: Negative. Cardiovascular: Negative. Gastrointestinal: Negative. Musculoskeletal: Negative. Skin: Diabetic foot ulcer, great toe left foot, painful Physical Exam Vitals and nursing note reviewed. Feet: Comments: Diabetic foot ulcer - gauze is saturated with sanguinous and purulent drainage. Foul smell from wound bed. Vitals: 01/27/24 1336 BP: (!) 139/90 Pulse: 90 SpO2: 94% Weight: 126.6 kg (279 lb) Height: 5' 2 Assessment and Plan Addie Organ was seen today for hospital follow up. Diabetic ulcer Missed podiatry appt today Advised to reschedule Wound care supplies given - Saline, Betadine, gauze, wrap, tape Refilled doxycycline as she did not start this upon discharge, missed last day to fruit or nut picker from pharmacy Medications refilled as needed - recheck TSH for thyroid maintenance medication SOLO Recheck BMP today We discussed the following: ICD-10-CM ICD-9-CM 1. Diabetic ulcer of right foot associated with type 2 diabetes mellitus, unspecified part of foot, unspecified ulcer stage (HCC) E11.621 250.80 doxycycline hyclate (VIBRAMYCIN) 100 MG capsule L97.519 707.15 metFORMIN (GLUCOPHAGE) 1000 MG tablet 2. Primary hypertension I10 401.9 metoprolol succinate (TOPROL-XL) 50 MG 24 hr tablet lisinopriL (PRINIVIL,ZESTRIL) 30 MG tablet atorvastatin (LIPITOR) 40 MG tablet 3. SOLO (acute kidney injury) (HCC) N17.9 584.9 Basic Metabolic Panel 4. Hypothyroidism, unspecified type E03.9 244.9 levothyroxine (SYNTHROID, LEVOTHROID) 75 MCG tablet TSH with Reflex Free T4 5. Hyperlipidemia, unspecified hyperlipidemia type E78.5 272.4 atorvastatin (LIPITOR) 40 MG tablet Return if symptoms worsen or fail to improve. The patient indicates understanding of these issues and agrees with the plan. An After Visit Summary was printed and given to the patient. documented in this encounter [facility] 01-18-2024 History of Present illness Narrative AVS reviewed with patient. All requested supplies given to patient. Education on wound care provided to patient. Patient escorted to sister's car via wheelchair. All questions answered at this time. Barriers to finding accepting [facility] agency: pt's home location (not many HHC agencies in area), insurance not widely accepted [facility] agency: Accepted or Pending Name of agency: Accepted [facility] Referrals sent to: (names of agencies) Declined: [facility] - [facility] - [facility] [place] [facility] - [facility] - [facility] - staffing [facility] - no PT/OT [facility] Please be aware [facility] agencies have up to 24hours to respond. Many [facility] agencies closed on weekends, may take until Thursday to receive responses. [facility] created for the following services: yes - SN/PT/OT Verify the demographics (residential address) [address] [place] [address] What is the primary number to reach you? [phone] Who is your family physician/primary care physician? Stephany Pelayo PA-C [phone] Following physician will be: (list first name/last name) Do you have a caregiver and/or teachable caregiver (list relationship, name & phone #)? lives with family Estimated Discharge Date (KUNAL): 01/17 If discharge needs change, please reach out to [facility] Liaison assigned on treatment team as hub is not notified of additional consults to [facility] once team is following. Thank you. [facility] Patient Name: Addie Jean Baptiste Admit Date: [id number] MR #: [id number] : 1975 Perpetual Assessment: Addie Jean Baptiste is a 48 y.o. female on hospital day 5 admitted for left to ulcer and SOLO. We are asked to evaluate and manage her SOLO . Impression and Plan: SOLO: Unknown baseline. Likely multifactorial. Likely ATN secondary to profound hypotension and sepsis. Noted to be on Zosyn (stopped 01/14). Pt also noted to be on chlorthalidone (stopped 01/13). -Upon chart review baseline creatinine appears to be ~1-1.2mg/dl. -Creatinine on admission 1.06 Mg/DL.Creatinine has been stable at 1.6 mg/dL over the last several days. Expect this to improve with adequate blood pressure control. -UA from 01/13 w/ 100 protein and 150 of glucose. Will repeat. -Renal US pending. -Strict I's and O's. -Will stop IVF. -Patient somewhat drowsy on assessment and likely partly r/t pain medication. No need for emergent HD. 2. Left diabetic toe wound: -X-ray of left foot with soft tissue swelling without acute osseous abnormality. -CT of left foot without contrast showing ulcer of first toe with adjacent cellulitis, no evidence of osteomyelitis in the first toe or remainder of the foot. -Per podiatry, p.o. Doxy on discharge. 3. CKD stage II/IIIa: Pt dos not follow with a retail sales teammate in the OP setting. Risk factors for CKD include uncontrolled DM, HTN, obesity, and recurrent AKIs. 4. Diabetes type 2: Last A1c 9.3% 01/12/2024. -On insulin pump. Subjective: Patient drowsy but wakes up to answer questions. Review of Systems: ROS otherwise reviewed and negative Physical Examination: Vitals: Vitals: 01/17/24 0919 01/17/24 1122 01/17/24 1220 01/17/24 1223 BP: 99/63 92/60 101/66 BP Location: Right arm Right arm Patient Position: Sitting Sitting Pulse: 71 60 70 Resp: 18 18 Temp: 97.8 F (36.6 C) TempSrc: Oral SpO2: 97% Weight: Height: Intake/Output last 3 shifts: Intake/Output Summary (Last 24 hours) at 01/17/2024 1237 Last data filed at 01/17/2024 0351 Gross per 24 hour Intake 300 ml Output 400 ml Net -100 ml I/O last 3 completed shifts: In: 540 [P.O.:540] Out: 400 [Urine:400] General: No acute distress HEENT: Anicteric Neck: Supple CV: Regular rate, no murmurs or rubs. No lower extremity edema Lungs: CTA B Abd: Soft, nontender, bowel sounds present Extr: good LE perfusion, no cyanosis Neuro: Drowsy Skin : No new rashes Results/Medications Reviewed 01/17/24 12:37 PM: Laboratory, Microbiology, Pathology, Radiology, Cardiology, Medications and Transcriptions reviewed Scheduled Meds: atorvastatin 40 mg Oral Nightly busPIRone 30 mg Oral Q12H SAMEER citalopram 20 mg Oral Daily doxycycline 100 mg Oral BID levETIRAcetam 1,000 mg Oral BID metoprolol succinate 50 mg Oral Daily pregabalin 150 mg Oral Nightly QUEtiapine 800 mg Oral Nightly sodium chloride (PF) 5 mL Intravenous Q8H SAMEER tiZANidine 8 mg Oral Nightly Continuous Infusions: sodium chloride 0.9 % 100 mL/hr (01/14/24 1256) subcutaneous insulin pump Results from last 7 days Lab Units 01/17/24 0454 01/16/24 0354 01/15/24 0528 WBC K/mcL 7.74 8.82 7.12 HGB g/dL 9.3* 9.4* 9.9* HCT % 28.9* 30.1* 31.2* PLT K/mcL 259 285 266 Results from last 7 days Lab Units 01/17/24 0454 01/16/24 0354 01/15/24 0528 SODIUM mmol/L 143 143 143 POTASSIUM mmol/L 4.8 4.5 4.2 CHLORIDE mmol/L 113* 111* 109* BICARB mmol/L 23 25 25 BUN mg/dL 30* 27* 27* CREATININE mg/dL 1.69* 1.63* 1.59* EGFR mL/min/1.73 m2 38* 39* 40* GLUCOSE mg/dL 127* 103* 102* CALCIUM mg/dL 8.6 8.8 8.7 PHOSPHORUS mg/dL 3.7 4.1 4.8* Urinalysis Results from last 7 days Lab Units 01/16/24 1718 COLOR, UR Yellow CLARITY, UR Clear SPEC GRAV 1.013 PH, UR 5.0 GLUCOSE, UR mg/dL 50* KETONES, UR mg/dL Negative BILIRUBIN, UR Negative UROBILINOGEN, UR mg/dL <2.0 BLOOD, UR Negative NITRITE, UR Negative LEUK LORI, UR Negative MUCUS, UR /lpf Rare WBC, UR /hpf 1 BACTERIA, UR /hpf Rare* HYALINE CASTS /lpf 3-5* Potential limitations of the note: Parts of this note were created by dictation via voice recognition software (Equidam). The completed note was reviewed for accuracy. However, there may be subtle errors that were not found during the review. If such errors are discovered, or if there are any questions or concerns regarding the recommendations/plan of care, please contact the author of the note prior to undertaking the recommendations/plan of care. Associated attestation - Gino Smith MD - 01/17/2024 3:55 PM EDT I personally performed a [id number] encounter and discussed in detail with the FRIDA on this encounter today as the FRIDA's evaluation. I have completed the substantive portion of the visit (greater than 50% of total time) which includes but is not limited to reviewing the chart, obtaining history, performing physical exam, reviewing relevant data, medical decision making, and coordination with the care team. I agree with the care plan documented by the FRIDA with the following additions/comments: ATN likely from hypotension and possibly diabetic foot ulcer. Creatinine remains overall steady in the 1.6 to 1.7 mg/dL range over the last several days. She remains nonoliguric. Her blood pressures are in the 100s over 50s. She is currently on metoprolol 50 mg a day; will decrease 25mg qday She is also on high-dose quetiapine; recommend decreasing this as this may cause her altered mentation. Will sign off at this time. Please reconsult if needed. Physical examination General: Age appropriate, NAD. HEENT: Normocephalic, no scleral icterus. Neck: No JVD. Heart: Regular, no murmur, no rub/gallop. Lungs: Clear to ascultation, no rales/wheezing/rhonchi. Good chest wall excursion. Abdomen: Soft, nontender, no supra-public fullness or tenderness. Extremities: No clubbing/cyanosis, no edema. Skin: Warm, dry, normal turgor, no rash, no bruise, no petichiae. Neuro: No myoclonus or tremor. Psych: Normal affect. Results from last 7 days Lab Units 01/17/24 0454 01/16/24 0354 01/15/24 0528 WBC K/mcL 7.74 8.82 7.12 HGB g/dL 9.3* 9.4* 9.9* HCT % 28.9* 30.1* 31.2* PLT K/mcL 259 285 266 Results from last 7 days Lab Units 01/17/24 0454 01/16/24 0354 01/15/24 0528 SODIUM mmol/L 143 143 143 POTASSIUM mmol/L 4.8 4.5 4.2 CHLORIDE mmol/L 113* 111* 109* BICARB mmol/L 23 25 25 BUN mg/dL 30* 27* 27* CREATININE mg/dL 1.69* 1.63* 1.59* EGFR mL/min/1.73 m2 38* 39* 40* GLUCOSE mg/dL 127* 103* 102* CALCIUM mg/dL 8.6 8.8 8.7 PHOSPHORUS mg/dL 3.7 4.1 4.8* Laboratory, Microbiology, Pathology, Radiology, Cardiology, Medications and Transcriptions reviewed Medical Decision Making: Please contact us with any questions or concerns. Potential limitations of the note: Parts of this note were created by dictation via voice recognition software (Equidam). The completed note was reviewed for accuracy. However, there may be subtle errors that were not found during the review. If such errors are discovered, or if there are any questions or concerns regarding the recommendations/plan of care, please contact the author of the note prior to undertaking the recommendations/plan of care. Care Management Progress Note Date: 01/17/2024 Time: 8:43 AM Patient Name: Addie Jean Baptiste Date of : 1975 Discharge Plan: D/C Disposition: Home Health Care Services Related to Current Admission?: Yes Final D/C Agency/Destination: Other ([facility]) Plan A: Home Health Care Services Plan B: Home Health Care Services Discharging Transportation Plan: Transportation Type: Auto Family will provide transportation home Discharge Plan Status: VCM RNCM reviewed chart Plan for home w/ [facility] but SOC will be on Thursday 01/18. No further DC needs noted at this time Assessment and Background Information: SDOH Needs Addressed: Food Insecurity, Housing Stability, Financial Resource Strain Resources Provided - Food Insecurity: Added to AVS, Other (CHW referral) Resources Provided - Housing Stability: Added to AVS, Other (CHW referral) [facility] [place]ESS NOTE Assessment and Plan Addie Jean Baptiste is a 48 y.o. female patient of Stephany Pelayo PA-C with history of T2DM, HTN, bipolar disorder, and chronic back pain presented to [facility] on 01/12/2024 with left toe wound. Left diabetic toe ulcer P/w 4 day history of left toe ulcer with purulent drainage Afebrile on arrival, HR 96, RR 16, BP 165/113, no hypoxia Initial CBC without leukocytosis (WBC 9.68).BMP unremarkable. CRP 8.2, ESR 40 Xray L foot: Forefoot soft tissue swelling without an acute osseous abnormality. Received cefepime/dozy in the ED Cont abx coverage w zosyn, discharge on PO doxy for 2 weeks, FU w/ podiatry in clinic 01/26 Consult podiatry, appreciate recommendations CT L foot: There appears to be an ulcer along the distal aspect of the 1st toe with likely adjacent cellulitis. No CT evidence of osteomyelitis in the 1st toe or remainder of the foot Pain control with PRN tylenol and oxycodone Narcan order set, bowel regimen, pulse ox Daily labs Acute kidney injury on ?CKD III Initial Cr 1.06, (baseline ~1.1-1.2), trending up Cr 1.69 Cont gentle IVF @ 100cc/hr, check UA without granular casts or e/o AIN CPK 57, renal imaging pending Avoid nephrotoxins, renally dose meds Daily RFPs, strict I&Os, daily weights Left sided paresthesias LUE and LLE parestheais that occurred last night w/ mild weakness, unappreciated on exam. Drowsy this AM but follows all commands and answers questions No focal deficits on exam, will order CT head considering patients risk factors T2DM, with current long-term use of insulin Diabetic peripheral neuropathy Last A1c 9.2% in 09/2023 Home insulin regimen: insulin pump Continue with lantus and SSI Accuchecks w qAC/HS SSI. Hypoglycemic protocol. Seizure disorder Continue home keppra Obesity Body mass index is 45.73 kg/m . Discussed dietary and lifestyle modifications Quality & Disposition DVT ppx: None Chow: N Status: Full Code Discharge location: [place]: Subjective Patient seen and examined, reports numbness and tingling in her LUE and LLE that began last night. States she feels tire this AM. Objective/Exam Temp: [97.3 F (36.3 C)-97.7 F (36.5 C)] 97.7 F (36.5 C) Heart Rate: [59-65] 60 Resp: [16-18] 16 BP: (90-157)/(55-99) 96/64 Wt Readings from Last 3 Encounters: 01/12/24 128.5 kg (283 lb 4.7 oz) 01/09/24 113.4 kg (250 lb) 12/08/23 117.9 kg (260 lb) Intake/Output Summary (Last 24 hours) at 01/17/2024 0734 Last data filed at 01/17/2024 0351 Gross per 24 hour Intake 300 ml Output 400 ml Net -100 ml General: NAD, chronically ill appearing. HEENT: AT/NC. Sclera anicteric. CV: RRR. No m/r/g. No LE edema. Resp: CTAB. No w/r/c. On RA Abd: NT/ND. No peritoneal signs. Neuro: AOx3. No focal deficits. Strength and sensation preserved throughout. Speech intact MSK: No joint deformities Skin: Small ulceration of the left great toe Psych: Mood normal Labs reviewed: Results from last 7 days Lab Units 01/17/2445301/16/24 03501/15/24 0528 WBC K/mcL 7.74 8.82 7.12 HGB g/dL 9.3* 9.4* 9.9* PLT K/mcL 259 448 266 Results from last 7 days Lab Units 01/17/24 04501/16/24 0354 01/15/24 0528 SODIUM mmol/L 143 143 143 POTASSIUM mmol/L 4.8 4.5 4.2 BICARB mmol/L 25 BUN mg/dL 30* 27* 27* CREATININE mg/dL 1.69* 1.63* 1.59* GLUCOSE mg/dL 127* 103* 102* CALCIUM mg/dL 8.6 8.8 8.7 PHOSPHORUS mg/dL 3.7 4.1 4.8* Results from last 7 days Lab Units 01/17/2445301/16/24 03501/15/24 0528 ALBUMIN g/dL 3.2 3.3 3.4 Home medications: Outpatient Medications as of 01/17/2024 Medication Sig albuterol (PROVENTIL) 2.5 mg /3 mL (0.083 %) nebulizer solution Take 3 mL (2.5 mg total) by nebulization every 6 (six) hours as needed for wheezing or shortness of breath . albuterol 90 mcg/actuation inhaler Inhale 1 (one) puff every 4 to 6 hours as needed for shortness of breath or wheezing . atorvastatin (LIPITOR) 40 MG tablet Take 1 (one) tablet (40 mg total) by mouth nightly . ergocalciferol (Vitamin D2) 1,250 mcg (50,000 unit) capsule Take 1 (one) capsule (50,000 Units total) by mouth once a week . glucagon (Gvoke HypoPen 2-Pack) 1 mg/0.2 mL AtIn Inject 0.2 mL (1 mg total) under the skin as needed . hydrOXYzine (ATARAX) 25 MG tablet Take 1 (one) tablet (25 mg total) by mouth daily . insulin lispro (AdmeLOG,HumaLOG) 100 unit/mL injection Inject up to 150 units once daily via pump . lamoTRIgine (LAMICTAL) 25 MG tablet Take 1 tab daily for 2 weeks and then twice a day thereafter . levothyroxine (SYNTHROID, LEVOTHROID) 75 MCG tablet Take 1 (one) tablet (75 mcg total) by mouth once daily . lidocaine (LMX) 4 % cream Apply topically 3 (three) times a day . lisinopriL (PRINIVIL,ZESTRIL) 30 MG tablet Take 1 (one) tablet (30 mg total) by mouth daily . metoprolol succinate (TOPROL-XL) 50 MG 24 hr tablet Take 1 (one) tablet (50 mg total) by mouth daily . pantoprazole (PROTONIX) 40 MG tablet Take 1 (one) tablet (40 mg total) by mouth daily . polyethylene glycol (GLYCOLAX) 17 gram/dose powder Take 17 (seventeen) g by mouth daily as needed (constipation) . QUEtiapine (SEROQUEL) 400 MG tablet Take 2 (two) tablets (800 mg total) by mouth nightly . timolol (TIMOPTIC) 0.5 % ophthalmic solution Administer 1 (one) drop into the left eye daily . traZODone (DESYREL) 50 MG tablet Take 1 (one) tablet (50 mg total) by mouth nightly as needed . alcohol swabs PadM Apply 1 (one) Swab. topically 5 (five) times a day Clean area before administering insulin. . blood sugar diagnostic (glucose blood) strips by Miscellaneous route 3 (three) times a day As a backup to CGM to test blood sugar. One Touch Verio . busPIRone (BUSPAR) 30 MG tablet Take 1 (one) tablet (30 mg total) by mouth 2 (two) times a day . chlorthalidone (HYGROTON) 25 MG tablet Take 1 (one) tablet (25 mg total) by mouth daily . citalopram (CELEXA) 20 MG tablet Take 1 (one) tablet (20 mg total) by mouth daily . cyanocobalamin (B-12) 1000 MCG tablet Take 1 (one) tablet (1,000 mcg total) by mouth daily Reasons: [facility]. Dexcom G6 Vibrator Operator Misc Use as directed for continuous glucose monitoring . Dexcom G6 Sensor Simran Use as directed for continuous glucose monitoring change every 10 days . Dexcom G6 Transmitter Simran Use as directed for continuous glucose monitoring change every 3 months . divalproex (DEPAKOTE) 500 MG delayed release (DR) tablet Take 1 (one) tablet (500 mg total) by mouth 2 (two) times a day . hydrOXYzine (VISTARIL) 50 MG capsule Take 1 (one) capsule (50 mg total) by mouth 2 (two) times a day . lancets Misc 1 Lancet by Miscellaneous route 3 (three) times a day . levETIRAcetam (KEPPRA) 1000 MG tablet Take 1 (one) tablet (1,000 mg total) by mouth 2 (two) times a day . metFORMIN (GLUCOPHAGE) 1000 MG tablet Take 1 (one) tablet (1,000 mg total) by mouth 2 (two) times a day . metoprolol tartrate (LOPRESSOR) 25 MG tablet Take 1 (one) tablet (25 mg total) by mouth 2 (two) times a day . miscellaneous medical supply Misc 1 each by Miscellaneous route daily . nortriptyline (PAMELOR) 25 MG capsule Take 1 (one) capsule (25 mg total) by mouth nightly . omeprazole (PRILOSEC) 40 MG capsule Take 1 (one) capsule (40 mg total) by mouth 2 (two) times a day . Omnipod Insulin Refill Crtg ondansetron (ZOFRAN-ODT) 4 MG disintegrating tablet Dissolve 1 (one) tablet (4 mg total) on top of tongue every 8 (eight) hours as needed for nausea . oxyCODONE-acetaminophen (PERCOCET) 5-325 mg per tablet Take 1 (one) tablet by mouth nightly as needed for pain (Days supply per fill: 30) Start: 12/24/23. pregabalin (LYRICA) 75 MG capsule Take 1 (one) capsule (75 mg total) by mouth 2 (two) times a day (Days supply per fill: 30) . tiZANidine (ZANAFLEX) 4 MG tablet Take 2 tabs p.o. nightly . Scheduled medications: atorvastatin 40 mg Oral Nightly busPIRone 30 mg Oral Q12H SAMEER citalopram 20 mg Oral Daily doxycycline 100 mg Oral BID levETIRAcetam 1,000 mg Oral BID metoprolol succinate 50 mg Oral Daily pregabalin 150 mg Oral Nightly QUEtiapine 800 mg Oral Nightly sodium chloride (PF) 5 mL Intravenous Q8H SAMEER tiZANidine 8 mg Oral Nightly sodium chloride 0.9 % 100 mL/hr (01/14/24 1256) subcutaneous insulin pump [facility] [place] PROGRESS NOTE Assessment and Plan Addie Jean Baptiste is a 48 y.o. female patient of Stephany Pelayo PA-C with history of T2DM, HTN, bipolar disorder, and chronic back pain presented to [facility] on 01/12/2024 with left toe wound. Left diabetic toe ulcer P/w 4 day history of left toe ulcer with purulent drainage Afebrile on arrival, HR 96, RR 16, BP 165/113, no hypoxia Initial CBC without leukocytosis (WBC 9.68).BMP unremarkable. CRP 8.2, ESR 40 Xray L foot: Forefoot soft tissue swelling without an acute osseous abnormality. Received cefepime/dozy in the ED Cont abx coverage w zosyn, discharge on PO doxy for 2 weeks, FU w/ podiatry in clinic 01/26 Consult podiatry, appreciate recommendations CT L foot: There appears to be an ulcer along the distal aspect of the 1st toe with likely adjacent cellulitis. No CT evidence of osteomyelitis in the 1st toe or remainder of the foot Pain control with PRN tylenol and oxycodone Narcan order set, bowel regimen, pulse ox Daily labs Acute kidney injury on ?CKD III Initial Cr 1.06, increased to 1.59 (baseline ~1.1-1.2) Cont gentle IVF @ 100cc/hr, check UA without granular casts or e/o AIN CPK 57, renal imaging and UA pending Avoid nephrotoxins, renally dose meds Daily RFPs, strict I&Os, daily weights T2DM, with current long-term use of insulin Diabetic peripheral neuropathy Last A1c 9.2% in 09/2023 Home insulin regimen: insulin pump Continue with lantus and SSI Accuchecks w qAC/HS SSI. Hypoglycemic protocol. Seizure disorder Continue home keppra Obesity Body mass index is 45.73 kg/m . Discussed dietary and lifestyle modifications Quality & Disposition DVT ppx: None Chow: N Status: Full Code Discharge location: [facility]: Subjective Patient seen and examined, no events overnight. Discussed SOLO workup Objective/Exam Temp: [97.2 F (36.2 C)-98.2 F (36.8 C)] 97.4 F (36.3 C) Heart Rate: [60-69] 65 Resp: [14-18] 18 BP: (77-143)/(45-81) 90/55 Wt Readings from Last 3 Encounters: 01/12/24 128.5 kg (283 lb 4.7 oz) 01/09/24 113.4 kg (250 lb) 12/08/23 117.9 kg (260 lb) Intake/Output Summary (Last 24 hours) at 01/16/2024 0804 Last data filed at 01/15/20242040 Gross per 24 hour Intake 240 ml Output -- Net 240 ml General: NAD, chronically ill appearing. HEENT: AT/NC. Sclera anicteric. CV: RRR. No m/r/g. No LE edema. Resp: CTAB. No w/r/c. On RA Abd: NT/ND. No peritoneal signs. Neuro: AO. No focal deficits. Speech intact MSK: No joint deformities Skin: Small ulceration of the left great toe Psych: Mood normal Labs reviewed: Results from last 7 days Lab Units 01/16/24 0354 01/15/24 0528 01/14/24 0541 WBC K/mcL 8.82 7.12 7.49 HGB g/dL 9.4* 9.9* 9.7* PLT K/mcL 285 266 264 Results from last 7 days Lab Units 01/16/24 0354 01/15/24 0528 01/14/24 0541 SODIUM mmol/L 143 143 141 POTASSIUM mmol/L 4.5 4.2 4.1 BICARB mmol/L 25 25 25 BUN mg/dL 27* 27* 28* CREATININE mg/dL 1.63* 1.59* 1.59* GLUCOSE mg/dL 103* 102* 149* CALCIUM mg/dL 8.8 8.7 8.5 PHOSPHORUS mg/dL 4.1 4.8* 4.7* Results from last 7 days Lab Units 01/16/24 0354 01/15/24 0528 01/14/24 0541 ALBUMIN g/dL 3.3 3.4 3.4 Home medications: Outpatient Medications as of 01/16/2024 Medication Sig albuterol (PROVENTIL) 2.5 mg /3 mL (0.083 %) nebulizer solution Take 3 mL (2.5 mg total) by nebulization every 6 (six) hours as needed for wheezing or shortness of breath . albuterol 90 mcg/actuation inhaler Inhale 1 (one) puff every 4 to 6 hours as needed for shortness of breath or wheezing . atorvastatin (LIPITOR) 40 MG tablet Take 1 (one) tablet (40 mg total) by mouth nightly . ergocalciferol (Vitamin D2) 1,250 mcg (50,000 unit) capsule Take 1 (one) capsule (50,000 Units total) by mouth once a week . glucagon (Gvoke HypoPen 2-Pack) 1 mg/0.2 mL AtIn Inject 0.2 mL (1 mg total) under the skin as needed . hydrOXYzine (ATARAX) 25 MG tablet Take 1 (one) tablet (25 mg total) by mouth daily . insulin lispro (AdmeLOG,HumaLOG) 100 unit/mL injection Inject up to 150 units once daily via pump . lamoTRIgine (LAMICTAL) 25 MG tablet Take 1 tab daily for 2 weeks and then twice a day thereafter . levothyroxine (SYNTHROID, LEVOTHROID) 75 MCG tablet Take 1 (one) tablet (75 mcg total) by mouth once daily . lidocaine (LMX) 4 % cream Apply topically 3 (three) times a day . lisinopriL (PRINIVIL,ZESTRIL) 30 MG tablet Take 1 (one) tablet (30 mg total) by mouth daily . metoprolol succinate (TOPROL-XL) 50 MG 24 hr tablet Take 1 (one) tablet (50 mg total) by mouth daily . pantoprazole (PROTONIX) 40 MG tablet Take 1 (one) tablet (40 mg total) by mouth daily . polyethylene glycol (GLYCOLAX) 17 gram/dose powder Take 17 (seventeen) g by mouth daily as needed (constipation) . QUEtiapine (SEROQUEL) 400 MG tablet Take 2 (two) tablets (800 mg total) by mouth nightly . timolol (TIMOPTIC) 0.5 % ophthalmic solution Administer 1 (one) drop into the left eye daily . traZODone (DESYREL) 50 MG tablet Take 1 (one) tablet (50 mg total) by mouth nightly as needed . alcohol swabs PadM Apply 1 (one) Swab. topically 5 (five) times a day Clean area before administering insulin. . blood sugar diagnostic (glucose blood) strips by Miscellaneous route 3 (three) times a day As a backup to CGM to test blood sugar. One Touch Verio . busPIRone (BUSPAR) 30 MG tablet Take 1 (one) tablet (30 mg total) by mouth 2 (two) times a day . chlorthalidone (HYGROTON) 25 MG tablet Take 1 (one) tablet (25 mg total) by mouth daily . citalopram (CELEXA) 20 MG tablet Take 1 (one) tablet (20 mg total) by mouth daily . cyanocobalamin (B-12) 1000 MCG tablet Take 1 (one) tablet (1,000 mcg total) by mouth daily Reasons: [facility]. Dexcom G6 Vibrator Operator Misc Use as directed for continuous glucose monitoring . Dexcom G6 Sensor Simran Use as directed for continuous glucose monitoring change every 10 days . Dexcom G6 Transmitter Simran Use as directed for continuous glucose monitoring change every 3 months . divalproex (DEPAKOTE) 500 MG delayed release (DR) tablet Take 1 (one) tablet (500 mg total) by mouth 2 (two) times a day . hydrOXYzine (VISTARIL) 50 MG capsule Take 1 (one) capsule (50 mg total) by mouth 2 (two) times a day . lancets Misc 1 Lancet by Miscellaneous route 3 (three) times a day . levETIRAcetam (KEPPRA) 1000 MG tablet Take 1 (one) tablet (1,000 mg total) by mouth 2 (two) times a day . metFORMIN (GLUCOPHAGE) 1000 MG tablet Take 1 (one) tablet (1,000 mg total) by mouth 2 (two) times a day . metoprolol tartrate (LOPRESSOR) 25 MG tablet Take 1 (one) tablet (25 mg total) by mouth 2 (two) times a day . miscellaneous medical supply Misc 1 each by Miscellaneous route daily . nortriptyline (PAMELOR) 25 MG capsule Take 1 (one) capsule (25 mg total) by mouth nightly . omeprazole (PRILOSEC) 40 MG capsule Take 1 (one) capsule (40 mg total) by mouth 2 (two) times a day . Omnipod Insulin Refill Crtg ondansetron (ZOFRAN-ODT) 4 MG disintegrating tablet Dissolve 1 (one) tablet (4 mg total) on top of tongue every 8 (eight) hours as needed for nausea . oxyCODONE-acetaminophen (PERCOCET) 5-325 mg per tablet Take 1 (one) tablet by mouth nightly as needed for pain (Days supply per fill: 30) Start: 12/24/23. pregabalin (LYRICA) 75 MG capsule Take 1 (one) capsule (75 mg total) by mouth 2 (two) times a day (Days supply per fill: 30) . tiZANidine (ZANAFLEX) 4 MG tablet Take 2 tabs p.o. nightly . Scheduled medications: atorvastatin 40 mg Oral Nightly busPIRone 30 mg Oral Q12H SAMEER citalopram 20 mg Oral Daily doxycycline 100 mg Oral BID levETIRAcetam 1,000 mg Oral BID metoprolol succinate 50 mg Oral Daily pregabalin 150 mg Oral Nightly QUEtiapine 800 mg Oral Nightly sodium chloride (PF) 5 mL Intravenous Q8H SAMEER tiZANidine 8 mg Oral Nightly sodium chloride 0.9 % 100 mL/hr (01/16/24 0712) sodium chloride 0.9 % 100 mL/hr (01/14/24 1256) subcutaneous insulin pump Spiritual Care Progress Note Person(s) Present During this Visit: Patient, Healthcare Provider Time Spent in Direct Patient Care: 5 Narrative: Addie welcomed pastoral care visit; however, she was in need of patient care at the time of this visit. A follow up Pastoral Care visit will be planned for Addie as part of her plan of care and according to availability. Pastoral Care team will remain available to support patient and family PRN. Patients Response to Pastoral Care: Timing of Visit Not Optimal. Visit Rescheduled (Patient care needed) Planning for Future Visits: PRN Patient's Spiritual Needs Assessment 01/15/24 1811 Visit Background Visit With Patient;Healthcare Provider Visit By Staff [employer]er Visit Progression Attempt Visit Requested By [employer] Drawer Initiated Visit Source [employer] Drawer Initiated Visit Type Inpatient;Rounding Visit Circumstances and Events Routine Visit Visit Length (minutes) 5 Patient's Response to Pastoral Care Timing of Visit Not Optimal. Visit Rescheduled (Patient care needed) Visit Planning PRN Spiritual Assessment Unable to Assess during this visit [place]eter[place] Assessment Unable to Assess during this visit Family assessment provided? Unable to asess during this visit Rev. Addie Bland MDiv. Staff [employer] Drawer [facility] Contact Care Management Progress Note Date: 01/15/2024 Time: 4:21 PM Patient Name: Addie Jean Baptiste Date of : 1975 Discharge Plan: Plan A: Home Health Care Services Plan B: Home Health Care Services Discharging Transportation Plan: Discharge Plan Status: Met with pt and her family, confirmed discharge plan. Informed pt that home health is arranged, start of care will be on [place], she is agreeable to this. She denies any other needs Unsure at this time if pt will discharge over the weekend. Will add pt to VCM list for assistance with discharge needs over the weekend. Assessment and Background Information: SDOH Needs Addressed: Food Insecurity, Housing Stability, Financial Resource Strain Resources Provided - Food Insecurity: Added to AVS, Other (CHW referral) Resources Provided - Housing Stability: Added to AVS, Other (CHW referral) [facility] [place] PROGRESS NOTE Assessment and Plan Addie Jean Baptiste is a 48 y.o. female patient of Stephany Pelayo PA-C with history of T2DM, HTN, bipolar disorder, and chronic back pain presented to [facility] on 01/12/2024 with left toe wound. Left diabetic toe ulcer P/w 4 day history of left toe ulcer with purulent drainage Afebrile on arrival, HR 96, RR 16, BP 165/113, no hypoxia Initial CBC without leukocytosis (WBC 9.68).BMP unremarkable. CRP 8.2, ESR 40 Xray L foot: Forefoot soft tissue swelling without an acute osseous abnormality. Received cefepime/dozy in the ED Cont abx coverage w zosyn, discharge on PO doxy for 2 weeks, FU w/ podiatry in clinic 01/26 Consult podiatry, appreciate recommendations CT L foot: There appears to be an ulcer along the distal aspect of the 1st toe with likely adjacent cellulitis. No CT evidence of osteomyelitis in the 1st toe or remainder of the foot Pain control with PRN tylenol and oxycodone Narcan order set, bowel regimen, pulse ox Daily labs Acute kidney injury on ?CKD III Initial Cr 1.06, increased to 1.59 (baseline ~1.1-1.2) Cont gentle IVF @ 100cc/hr, check UA without granular casts or e/o AIN CPK 57, if no improvement tomorrow get renal imaging and discuss with nephrology Avoid nephrotoxins, renally dose meds Daily RFPs, strict I&Os, daily weights T2DM, with current long-term use of insulin Diabetic peripheral neuropathy Last A1c 9.2% in 09/2023 Home insulin regimen: insulin pump Continue with lantus and SSI Accuchecks w qAC/HS SSI. Hypoglycemic protocol. Seizure disorder Continue home keppra Obesity Body mass index is 45.73 kg/m . Discussed dietary and lifestyle modifications Quality & Disposition DVT ppx: None Chow: N Status: Full Code Discharge location: [facility]: Subjective Patient seen and examined, no events overnight. Discussed renal function and IVF. Objective/Exam Temp: [97.2 F (36.2 C)-98.1 F (36.7 C)] 97.2 F (36.2 C) Heart Rate: [67-101] 67 Resp: [12-16] 15 BP: (114-174)/(74-116) 114/74 Wt Readings from Last 3 Encounters: 01/12/24 128.5 kg (283 lb 4.7 oz) 01/09/24 113.4 kg (250 lb) 12/08/23 117.9 kg (260 lb) No intake or output data in the 24 hours ending 01/15/24 0904 General: NAD, chronically ill appearing. HEENT: AT/NC. Sclera anicteric. CV: RRR. No m/r/g. No LE edema. Resp: CTAB. No w/r/c. On RA Abd: NT/ND. No peritoneal signs. Neuro: AO. No focal deficits. Speech intact MSK: No joint deformities Skin: Small ulceration of the left great toe Psych: Mood normal Labs reviewed: Results from last 7 days Lab Units 01/15/24 0528 01/14/24 0541 01/13/24 0720 WBC K/mcL 7.12 7.49 7.09 HGB g/dL 9.9* 9.7* 9.3* PLT K/mcL 266 264 238 Results from last 7 days Lab Units 01/15/24 0528 01/14/24 0541 01/13/24 0538 SODIUM mmol/L 143 141 138 POTASSIUM mmol/L 4.2 4.1 4.1 BICARB mmol/L 25 25 21 BUN mg/dL 27* 28* 27* CREATININE mg/dL 1.59* 1.59* 1.32* GLUCOSE mg/dL 102* 149* 157* CALCIUM mg/dL 8.7 8.5 8.4 PHOSPHORUS mg/dL 4.8* 4.7* 3.7 Results from last 7 days Lab Units 01/15/24 0528 01/14/24 0541 01/13/24 0538 ALBUMIN g/dL 3.4 3.4 3.1* Home medications: Outpatient Medications as of 01/15/2024 Medication Sig albuterol (PROVENTIL) 2.5 mg /3 mL (0.083 %) nebulizer solution Take 3 mL (2.5 mg total) by nebulization every 6 (six) hours as needed for wheezing or shortness of breath . albuterol 90 mcg/actuation inhaler Inhale 1 (one) puff every 4 to 6 hours as needed for shortness of breath or wheezing . atorvastatin (LIPITOR) 40 MG tablet Take 1 (one) tablet (40 mg total) by mouth nightly . ergocalciferol (Vitamin D2) 1,250 mcg (50,000 unit) capsule Take 1 (one) capsule (50,000 Units total) by mouth once a week . glucagon (Gvoke HypoPen 2-Pack) 1 mg/0.2 mL AtIn Inject 0.2 mL (1 mg total) under the skin as needed . hydrOXYzine (ATARAX) 25 MG tablet Take 1 (one) tablet (25 mg total) by mouth daily . insulin lispro (AdmeLOG,HumaLOG) 100 unit/mL injection Inject up to 150 units once daily via pump . lamoTRIgine (LAMICTAL) 25 MG tablet Take 1 tab daily for 2 weeks and then twice a day thereafter . levothyroxine (SYNTHROID, LEVOTHROID) 75 MCG tablet Take 1 (one) tablet (75 mcg total) by mouth once daily . lidocaine (LMX) 4 % cream Apply topically 3 (three) times a day . lisinopriL (PRINIVIL,ZESTRIL) 30 MG tablet Take 1 (one) tablet (30 mg total) by mouth daily . metoprolol succinate (TOPROL-XL) 50 MG 24 hr tablet Take 1 (one) tablet (50 mg total) by mouth daily . pantoprazole (PROTONIX) 40 MG tablet Take 1 (one) tablet (40 mg total) by mouth daily . polyethylene glycol (GLYCOLAX) 17 gram/dose powder Take 17 (seventeen) g by mouth daily as needed (constipation) . QUEtiapine (SEROQUEL) 400 MG tablet Take 2 (two) tablets (800 mg total) by mouth nightly . timolol (TIMOPTIC) 0.5 % ophthalmic solution Administer 1 (one) drop into the left eye daily . traZODone (DESYREL) 50 MG tablet Take 1 (one) tablet (50 mg total) by mouth nightly as needed . alcohol swabs PadM Apply 1 (one) Swab. topically 5 (five) times a day Clean area before administering insulin. . blood sugar diagnostic (glucose blood) strips by Miscellaneous route 3 (three) times a day As a backup to CGM to test blood sugar. One Touch Verio . busPIRone (BUSPAR) 30 MG tablet Take 1 (one) tablet (30 mg total) by mouth 2 (two) times a day . chlorthalidone (HYGROTON) 25 MG tablet Take 1 (one) tablet (25 mg total) by mouth daily . citalopram (CELEXA) 20 MG tablet Take 1 (one) tablet (20 mg total) by mouth daily . cyanocobalamin (B-12) 1000 MCG tablet Take 1 (one) tablet (1,000 mcg total) by mouth daily Reasons: [facility]. Dexcom G6 Vibrator Operator Misc Use as directed for continuous glucose monitoring . Dexcom G6 Sensor Simran Use as directed for continuous glucose monitoring change every 10 days . Dexcom G6 Transmitter Simran Use as directed for continuous glucose monitoring change every 3 months . divalproex (DEPAKOTE) 500 MG delayed release (DR) tablet Take 1 (one) tablet (500 mg total) by mouth 2 (two) times a day . hydrOXYzine (VISTARIL) 50 MG capsule Take 1 (one) capsule (50 mg total) by mouth 2 (two) times a day . lancets Misc 1 Lancet by Miscellaneous route 3 (three) times a day . levETIRAcetam (KEPPRA) 1000 MG tablet Take 1 (one) tablet (1,000 mg total) by mouth 2 (two) times a day . metFORMIN (GLUCOPHAGE) 1000 MG tablet Take 1 (one) tablet (1,000 mg total) by mouth 2 (two) times a day . metoprolol tartrate (LOPRESSOR) 25 MG tablet Take 1 (one) tablet (25 mg total) by mouth 2 (two) times a day . miscellaneous medical supply Misc 1 each by Miscellaneous route daily . nortriptyline (PAMELOR) 25 MG capsule Take 1 (one) capsule (25 mg total) by mouth nightly . omeprazole (PRILOSEC) 40 MG capsule Take 1 (one) capsule (40 mg total) by mouth 2 (two) times a day . Omnipod Insulin Refill Crtg ondansetron (ZOFRAN-ODT) 4 MG disintegrating tablet Dissolve 1 (one) tablet (4 mg total) on top of tongue every 8 (eight) hours as needed for nausea . oxyCODONE-acetaminophen (PERCOCET) 5-325 mg per tablet Take 1 (one) tablet by mouth nightly as needed for pain (Days supply per fill: 30) Start: 12/24/23. pregabalin (LYRICA) 75 MG capsule Take 1 (one) capsule (75 mg total) by mouth 2 (two) times a day (Days supply per fill: 30) . tiZANidine (ZANAFLEX) 4 MG tablet Take 2 tabs p.o. nightly . Scheduled medications: atorvastatin 40 mg Oral Nightly busPIRone 30 mg Oral Q12H SAMEER citalopram 20 mg Oral Daily levETIRAcetam 1,000 mg Oral BID metoprolol succinate 50 mg Oral Daily piperacillin-tazobactam (ZOSYN) extended infusion 3.375 g Intravenous Q8H pregabalin 150 mg Oral Nightly QUEtiapine 800 mg Oral Nightly sodium chloride (PF) 5 mL Intravenous Q8H SAMEER tiZANidine 8 mg Oral Nightly sodium chloride 0.9 % 100 mL/hr (01/14/24 2219) sodium chloride 0.9 % 100 mL/hr (01/14/24 1256) subcutaneous insulin pump Care Management Progress Note Date: 01/15/2024 Time: 7:24 AM Patient Name: Addie Jean Baptiste Date of : 1975 Discharge Plan: Plan A: Home Health Care Services Plan B: Home Health Care Services Assessment and Background Information: SDOH Needs Addressed: Food Insecurity, Housing Stability, Financial Resource Strain Resources Provided - Food Insecurity: Added to AVS, Other (CHW referral) Resources Provided - Housing Stability: Added to AVS, Other (CHW referral) Barriers to finding accepting [facility] agency: pt's home location (not many [facility] agencies in area), insurance not widely accepted HH agency: Accepted or Pending Name of agency: Accepted but cannot open for SOC until 01/18 HC Mat[facility] Referrals sent to: (names of agencies) Declined: [facility] [place] [place] [facility] - [facility] - [facility] - [facility]- [facility] Please be aware [facility] agencies have up to 24hours to respond. Many [facility] agencies closed on weekends, may take until Thursday to receive responses. [facility] created for the following services: yes - SN/PT/OT Verify the demographics (residential address) [address] [place] [address] What is the primary number to reach you? [phone] Who is your family physician/primary care physician? Stephany Pelayo PA-C [phone] Do you have a caregiver and/or teachable caregiver (list relationship, name & phone #)? lives with family Estimated Discharge Date (KUNAL): 01/14 If discharge needs change, please reach out to Hub Liaison assigned on treatment team as hub is not notified of additional consults to [facility] once team is following. [facility] IN[facility]IENT PROGRESS NOTE ASSESSMENT AND PLAN: Diabetes with neuropathy left hallux ulceration Left foot cellulitis The patient was seen and evaluated and discussed findings with patient. Patient's left hallux distal tuft ulceration encompasses the entire distal one half of the toe. He does not involve proximal to the interphalangeal joint. There is increased redness warmth and drainage noted but is reportedly improved even overnight since her admission. Patient cellulitis continues to prove the IV antibiotics continue with the Betadine wet-to-dry dressings. - OR Plans: none - ABX: PO Doxy on discharge - DSG: betadine gauze bandage - WBS: heel weight bearing with marian shoe - XR : reviewed. CT reviewed, no osteomyelitis Okay to discharge from podiatry perspective, patient does have acute kidney injury and will likely need to be monitored. Answered questions and rediscussed plan at length with the patient and family if present. Discussed plan with other teams' providers. We discussed with the patient the pathology, etiology, pathogenesis, current condition management plan and disposition. This was discussed at various times during the day with representatives from nursing, pharmacy, case management, social work, and therapies as needed. We discussed with the patient he etiology of problems listed in the Assessment and Plan section, as well as risk factors, natural course, prognosis, treatment options with associated risks and benefits. Importance of compliance with the treatment plan was emphasized. I explained test results to date, as well as additional diagnostic recommendations. I explained discharge plans, including the required post-hospitalization care, treatment, and services. All questions were answered and ample time was provided. PATIENT VOICES NO COMPLAINTS, AFEBRILE, PAIN IS LESS LABS: Results from last 7 days Lab Units 01/14/24 0541 01/13/24 0538 01/12/24 1505 SODIUM mmol/L 141 138 140 POTASSIUM mmol/L 4.1 4.1 4.1 CHLORIDE mmol/L 107 105 104 BUN mg/dL 28* 27* 24 CREATININE mg/dL 1.59* 1.32* 1.06 GLUCOSE mg/dL 149* 157* 109* CALCIUM mg/dL 8.5 8.4 9.0 Results from last 7 days Lab Units 01/14/24 0541 01/13/24 0720 01/12/24 1505 WBC K/mcL 7.49 7.09 9.68 HGB g/dL 9.7* 9.3* 11.7* HCT % 29.6* 27.5* 34.6* PLT K/mcL 264 238 291 MONOS% % -- -- 4.9 EOSIN% % -- -- 6.5 Invalid input(s): [facility] PRO[facility]ESS [facility] Assessment and Plan Addie Jean Baptiste is a 48 y.o. female patient of Stephany Pelayo PA-C with history of T2DM, HTN, bipolar disorder, and chronic back pain presented to [facility] on 01/12/2024 with left toe wound. Left diabetic toe ulcer P/w 4 day history of left toe ulcer with purulent drainage Afebrile on arrival, HR 96, RR 16, BP 165/113, no hypoxia Initial CBC without leukocytosis (WBC 9.68).BMP unremarkable. CRP 8.2, ESR 40 Xray L foot: Forefoot soft tissue swelling without an acute osseous abnormality. Received cefepime/dozy in the ED Cont abx coverage w zosyn, discharge on PO doxy for 2 weeks, FU w/ podiatry in clinic 01/26 Consult podiatry, appreciate recommendations CT L foot: There appears to be an ulcer along the distal aspect of the 1st toe with likely adjacent cellulitis. No CT evidence of osteomyelitis in the 1st toe or remainder of the foot Pain control with PRN tylenol and oxycodone Narcan order set, bowel regimen, pulse ox Daily labs Acute kidney injury on ?CKD III Initial Cr 1.06, increased to 1.59 (baseline ~1.1-1.2). Start gentle IVF @ 100cc/hr, check UA pending CPK 57 Avoid nephrotoxins, renally dose meds Daily RFPs, strict I&Os, daily weights T2DM, with current long-term use of insulin Diabetic peripheral neuropathy Last A1c 9.2% in 09/2023 Home insulin regimen: insulin pump Continue with lantus and SSI Accuchecks w qAC/HS SSI. Hypoglycemic protocol. Seizure disorder Continue home keppra Obesity Body mass index is 45.73 kg/m . Discussed dietary and lifestyle modifications Quality & Disposition DVT ppx: None Chow: N Status: Full Code Discharge location: KUNAL: Subjective Patient seen and examined, no events overnight. Discussed outpatient follow up w/ podiatry and oral abx. Objective/Exam Temp: [97.3 F (36.3 C)-98.2 F (36.8 C)] 97.5 F (36.4 C) Heart Rate: [78-101] 101 Resp: [14-17] 14 BP: (95-182)/(64-116) 174/116 Wt Readings from Last 3 Encounters: 01/12/24 128.5 kg (283 lb 4.7 oz) 01/09/24 113.4 kg (250 lb) 12/08/23 117.9 kg (260 lb) No intake or output data in the 24 hours ending 01/14/24 1218 General: NAD, chronically ill appearing. HEENT: AT/NC. Sclera anicteric. CV: RRR. No m/r/g. No LE edema. Resp: CTAB. No w/r/c. On RA Abd: NT/ND. No peritoneal signs. Neuro: AO. No focal deficits. Speech intact MSK: No joint deformities Skin: Small ulceration of the left great toe Psych: Mood normal Labs reviewed: Results from last 7 days Lab Units 01/14/24 0541 01/13/24 0720 01/12/24 1505 WBC K/mcL 7.49 7.09 9.68 HGB g/dL 9.7* 9.3* 11.7* PLT K/mcL 264 238 291 Results from last 7 days Lab Units 01/14/24 0541 01/13/24 0538 01/12/24 1505 SODIUM mmol/L 141 138 140 POTASSIUM mmol/L 4.1 4.1 4.1 BICARB mmol/L 25 21 26 BUN mg/dL 28* 27* 24 CREATININE mg/dL 1.59* 1.32* 1.06 GLUCOSE mg/dL 149* 157* 109* CALCIUM mg/dL 8.5 8.4 9.0 PHOSPHORUS mg/dL 4.7* 3.7 -- Results from last 7 days Lab Units 01/14/24 0541 01/13/24 0538 ALBUMIN g/dL 3.4 3.1* Home medications: Outpatient Medications as of 01/14/2024 Medication Sig albuterol (PROVENTIL) 2.5 mg /3 mL (0.083 %) nebulizer solution Take 3 mL (2.5 mg total) by nebulization every 6 (six) hours as needed for wheezing or shortness of breath . albuterol 90 mcg/actuation inhaler Inhale 1 (one) puff every 4 to 6 hours as needed for shortness of breath or wheezing . atorvastatin (LIPITOR) 40 MG tablet Take 1 (one) tablet (40 mg total) by mouth nightly . ergocalciferol (Vitamin D2) 1,250 mcg (50,000 unit) capsule Take 1 (one) capsule (50,000 Units total) by mouth once a week . glucagon (Gvoke HypoPen 2-Pack) 1 mg/0.2 mL AtIn Inject 0.2 mL (1 mg total) under the skin as needed . hydrOXYzine (ATARAX) 25 MG tablet Take 1 (one) tablet (25 mg total) by mouth daily . insulin lispro (AdmeLOG,HumaLOG) 100 unit/mL injection Inject up to 150 units once daily via pump . lamoTRIgine (LAMICTAL) 25 MG tablet Take 1 tab daily for 2 weeks and then twice a day thereafter . levothyroxine (SYNTHROID, LEVOTHROID) 75 MCG tablet Take 1 (one) tablet (75 mcg total) by mouth once daily . lidocaine (LMX) 4 % cream Apply topically 3 (three) times a day . lisinopriL (PRINIVIL,ZESTRIL) 30 MG tablet Take 1 (one) tablet (30 mg total) by mouth daily . metoprolol succinate (TOPROL-XL) 50 MG 24 hr tablet Take 1 (one) tablet (50 mg total) by mouth daily . pantoprazole (PROTONIX) 40 MG tablet Take 1 (one) tablet (40 mg total) by mouth daily . polyethylene glycol (GLYCOLAX) 17 gram/dose powder Take 17 (seventeen) g by mouth daily as needed (constipation) . QUEtiapine (SEROQUEL) 400 MG tablet Take 2 (two) tablets (800 mg total) by mouth nightly . timolol (TIMOPTIC) 0.5 % ophthalmic solution Administer 1 (one) drop into the left eye daily . traZODone (DESYREL) 50 MG tablet Take 1 (one) tablet (50 mg total) by mouth nightly as needed . alcohol swabs PadM Apply 1 (one) Swab. topically 5 (five) times a day Clean area before administering insulin. . blood sugar diagnostic (glucose blood) strips by Miscellaneous route 3 (three) times a day As a backup to CGM to test blood sugar. One Touch Verio . busPIRone (BUSPAR) 30 MG tablet Take 1 (one) tablet (30 mg total) by mouth 2 (two) times a day . chlorthalidone (HYGROTON) 25 MG tablet Take 1 (one) tablet (25 mg total) by mouth daily . citalopram (CELEXA) 20 MG tablet Take 1 (one) tablet (20 mg total) by mouth daily . cyanocobalamin (B-12) 1000 MCG tablet Take 1 (one) tablet (1,000 mcg total) by mouth daily Reasons: [facility]. Dexcom G6 Vibrator Operator Misc Use as directed for continuous glucose monitoring . Dexcom G6 Sensor Simran Use as directed for continuous glucose monitoring change every 10 days . Dexcom G6 Transmitter Simran Use as directed for continuous glucose monitoring change every 3 months . divalproex (DEPAKOTE) 500 MG delayed release (DR) tablet Take 1 (one) tablet (500 mg total) by mouth 2 (two) times a day . hydrOXYzine (VISTARIL) 50 MG capsule Take 1 (one) capsule (50 mg total) by mouth 2 (two) times a day . lancets Misc 1 Lancet by Miscellaneous route 3 (three) times a day . levETIRAcetam (KEPPRA) 1000 MG tablet Take 1 (one) tablet (1,000 mg total) by mouth 2 (two) times a day . metFORMIN (GLUCOPHAGE) 1000 MG tablet Take 1 (one) tablet (1,000 mg total) by mouth 2 (two) times a day . metoprolol tartrate (LOPRESSOR) 25 MG tablet Take 1 (one) tablet (25 mg total) by mouth 2 (two) times a day . miscellaneous medical supply Misc 1 each by Miscellaneous route daily . nortriptyline (PAMELOR) 25 MG capsule Take 1 (one) capsule (25 mg total) by mouth nightly . omeprazole (PRILOSEC) 40 MG capsule Take 1 (one) capsule (40 mg total) by mouth 2 (two) times a day . Omnipod Insulin Refill Crtg ondansetron (ZOFRAN-ODT) 4 MG disintegrating tablet Dissolve 1 (one) tablet (4 mg total) on top of tongue every 8 (eight) hours as needed for nausea . oxyCODONE-acetaminophen (PERCOCET) 5-325 mg per tablet Take 1 (one) tablet by mouth nightly as needed for pain (Days supply per fill: 30) Start: 12/24/23. pregabalin (LYRICA) 75 MG capsule Take 1 (one) capsule (75 mg total) by mouth 2 (two) times a day (Days supply per fill: 30) . tiZANidine (ZANAFLEX) 4 MG tablet Take 2 tabs p.o. nightly . Scheduled medications: atorvastatin 40 mg Oral Nightly busPIRone 30 mg Oral Q12H SAMEER chlorthalidone 25 mg Oral Daily citalopram 20 mg Oral Daily divalproex 500 mg Oral Q12H SAMEER levETIRAcetam 1,000 mg Oral BID piperacillin-tazobactam (ZOSYN) extended infusion 3.375 g Intravenous Q8H pregabalin 150 mg Oral Nightly QUEtiapine 800 mg Oral Nightly sodium chloride (PF) 5 mL Intravenous Q8H SAMEER tiZANidine 8 mg Oral Nightly sodium chloride 0.9 % 100 mL/hr (01/13/24 1755) sodium chloride 0.9 % subcutaneous insulin pump 01/14/24 2:32pm - Called to [facility], and [facility]. Results are listed below. More referrals sent. Barriers to finding accepting [facility] agency: pt's home location (not many [facility] agencies in area), insurance not widely accepted [facility] agency: Accepted or Pending Name of agency: PENDING [facility] - call ringing and then not going through [facility] [place] [facility] Accepted but cannot open for SOC until 01/18 HC Matters Referrals sent to: (names of agencies) Declined: [facility] - [facility] - [facility] [place] [facility] - [facility] - [facility] - [facility] Please be aware [facility] agencies have up to 24hours to respond. Many [facility] agencies closed on weekends, may take until Thursday to receive responses. [facility] created for the following services: yes - SN/PT/OT Verify the demographics (residential address) [address] [place] [id number] What is the primary number to reach you? [phone] Who is your family physician/primary care physician? Stephany Pelayo PA-C [phone] Following physician will be: (list first name/last name) Do you have a caregiver and/or teachable caregiver (list relationship, name & phone #)? lives with family Estimated Discharge Date (KUNAL): 01/14 If discharge needs change, please reach out to Hub Liaison assigned on treatment team as hub is not notified of additional consults to [facility] once team is following. Thank you. 01/13/24 182 Provider Notification Reason for Communication Change in status Provider Name Judy Provider Role Hospitalist Notification Method Call Response En route Notification Time 182 [facility] PROGRESS NOTE Assessment and Plan Addie Jean Baptiste is a 48 y.o. female patient of Stephany Pelayo PA-C with history of T2DM, HTN, bipolar disorder, and chronic back pain presented to [facility] on 01/12/2024 with left toe wound. Left diabetic toe ulcer P/w 4 day history of left toe ulcer with purulent drainage Afebrile on arrival, HR 96, RR 16, BP 165/113, no hypoxia Initial CBC without leukocytosis (WBC 9.68).BMP unremarkable. CRP 8.2, ESR 40 Xray L foot: Forefoot soft tissue swelling without an acute osseous abnormality. Received cefepime/dozy in the ED Cont abx coverage w zosyn, discharge on PO doxy Consult podiatry, appreciate recommendations CT pending to r/o osteomyelitis Pain control with PRN tylenol and oxycodone Narcan order set, bowel regimen, pulse ox Daily labs T2DM, with current long-term use of insulin Diabetic peripheral neuropathy Last A1c 9.2% in 09/2023 Home insulin regimen: insulin pump Continue with lantus and SSI Accuchecks w qAC/HS SSI. Hypoglycemic protocol. Seizure disorder Continue home keppra Obesity Body mass index is 45.73 kg/m . Discussed dietary and lifestyle modifications Quality & Disposition DVT ppx: None Chow: N Status: Full Code Discharge location: KUNAL: Subjective Patient seen and examined, no events overnight. This am discussed dietary and lifestyle modifications to address her obesity and DM2 that will in turn lower her risk for diabetic ulcers. Objective/Exam Temp: [97.6 F (36.4 C)-97.8 F (36.6 C)] 97.8 F (36.6 C) Heart Rate: [78-99] 84 Resp: [16] 16 BP: (90-165)/(63-113) 115/76 Wt Readings from Last 3 Encounters: 01/12/24 128.5 kg (283 lb 4.7 oz) 01/09/24 113.4 kg (250 lb) 12/08/23 117.9 kg (260 lb) No intake or output data in the 24 hours ending 01/13/24 0907 General: NAD, chronically ill appearing. HEENT: AT/NC. Sclera anicteric. CV: RRR. No m/r/g. No LE edema. Resp: CTAB. No w/r/c. On RA Abd: NT/ND. No peritoneal signs. Neuro: AO. No focal deficits. Speech intact MSK: No joint deformities Skin: Small ulceration of the left great toe Psych: Mood normal Labs reviewed: Results from last 7 days Lab Units 01/13/24 0720 01/12/24 1505 WBC K/mcL 7.09 9.68 HGB g/dL 9.3* 11.7* PLT K/mcL 238 291 Results from last 7 days Lab Units 01/13/24 0538 01/12/24 1505 SODIUM mmol/L 138 140 POTASSIUM mmol/L 4.1 4.1 BICARB mmol/L 21 26 BUN mg/dL 27* 24 CREATININE mg/dL 1.32* 1.06 GLUCOSE mg/dL 157* 109* CALCIUM mg/dL 8.4 9.0 PHOSPHORUS mg/dL 3.7 -- Results from last 7 days Lab Units 01/13/24 0538 ALBUMIN g/dL 3.1* Home medications: Outpatient Medications as of 01/13/2024 Medication Sig albuterol (PROVENTIL) 2.5 mg /3 mL (0.083 %) nebulizer solution Take 3 mL (2.5 mg total) by nebulization every 6 (six) hours as needed for wheezing or shortness of breath . albuterol 90 mcg/actuation inhaler Inhale 1 (one) puff every 4 to 6 hours as needed for shortness of breath or wheezing . atorvastatin (LIPITOR) 40 MG tablet Take 1 (one) tablet (40 mg total) by mouth nightly . ergocalciferol (Vitamin D2) 1,250 mcg (50,000 unit) capsule Take 1 (one) capsule (50,000 Units total) by mouth once a week . glucagon (Gvoke HypoPen 2-Pack) 1 mg/0.2 mL AtIn Inject 0.2 mL (1 mg total) under the skin as needed . hydrOXYzine (ATARAX) 25 MG tablet Take 1 (one) tablet (25 mg total) by mouth daily . insulin lispro (AdmeLOG,HumaLOG) 100 unit/mL injection Inject up to 150 units once daily via pump . lamoTRIgine (LAMICTAL) 25 MG tablet Take 1 tab daily for 2 weeks and then twice a day thereafter . levothyroxine (SYNTHROID, LEVOTHROID) 75 MCG tablet Take 1 (one) tablet (75 mcg total) by mouth once daily . lidocaine (LMX) 4 % cream Apply topically 3 (three) times a day . lisinopriL (PRINIVIL,ZESTRIL) 30 MG tablet Take 1 (one) tablet (30 mg total) by mouth daily . metoprolol succinate (TOPROL-XL) 50 MG 24 hr tablet Take 1 (one) tablet (50 mg total) by mouth daily . pantoprazole (PROTONIX) 40 MG tablet Take 1 (one) tablet (40 mg total) by mouth daily . polyethylene glycol (GLYCOLAX) 17 gram/dose powder Take 17 (seventeen) g by mouth daily as needed (constipation) . QUEtiapine (SEROQUEL) 400 MG tablet Take 2 (two) tablets (800 mg total) by mouth nightly . timolol (TIMOPTIC) 0.5 % ophthalmic solution Administer 1 (one) drop into the left eye daily . traZODone (DESYREL) 50 MG tablet Take 1 (one) tablet (50 mg total) by mouth nightly as needed . alcohol swabs PadM Apply 1 (one) Swab. topically 5 (five) times a day Clean area before administering insulin. . blood sugar diagnostic (glucose blood) strips by Miscellaneous route 3 (three) times a day As a backup to CGM to test blood sugar. One Touch Verio . busPIRone (BUSPAR) 30 MG tablet Take 1 (one) tablet (30 mg total) by mouth 2 (two) times a day . chlorthalidone (HYGROTON) 25 MG tablet Take 1 (one) tablet (25 mg total) by mouth daily . citalopram (CELEXA) 20 MG tablet Take 1 (one) tablet (20 mg total) by mouth daily . cyanocobalamin (B-12) 1000 MCG tablet Take 1 (one) tablet (1,000 mcg total) by mouth daily Reasons: [facility]. Dexcom G6 Vibrator Operator Misc Use as directed for continuous glucose monitoring . Dexcom G6 Sensor Simran Use as directed for continuous glucose monitoring change every 10 days . Dexcom G6 Transmitter Simran Use as directed for continuous glucose monitoring change every 3 months . divalproex (DEPAKOTE) 500 MG delayed release (DR) tablet Take 1 (one) tablet (500 mg total) by mouth 2 (two) times a day . hydrOXYzine (VISTARIL) 50 MG capsule Take 1 (one) capsule (50 mg total) by mouth 2 (two) times a day . lancets Misc 1 Lancet by Miscellaneous route 3 (three) times a day . levETIRAcetam (KEPPRA) 1000 MG tablet Take 1 (one) tablet (1,000 mg total) by mouth 2 (two) times a day . metFORMIN (GLUCOPHAGE) 1000 MG tablet Take 1 (one) tablet (1,000 mg total) by mouth 2 (two) times a day . metoprolol tartrate (LOPRESSOR) 25 MG tablet Take 1 (one) tablet (25 mg total) by mouth 2 (two) times a day . miscellaneous medical supply Misc 1 each by Miscellaneous route daily . nortriptyline (PAMELOR) 25 MG capsule Take 1 (one) capsule (25 mg total) by mouth nightly . omeprazole (PRILOSEC) 40 MG capsule Take 1 (one) capsule (40 mg total) by mouth 2 (two) times a day . Omnipod Insulin Refill Crtg ondansetron (ZOFRAN-ODT) 4 MG disintegrating tablet Dissolve 1 (one) tablet (4 mg total) on top of tongue every 8 (eight) hours as needed for nausea . oxyCODONE-acetaminophen (PERCOCET) 5-325 mg per tablet Take 1 (one) tablet by mouth nightly as needed for pain (Days supply per fill: 30) Start: 12/24/23. pregabalin (LYRICA) 75 MG capsule Take 1 (one) capsule (75 mg total) by mouth 2 (two) times a day (Days supply per fill: 30) . tiZANidine (ZANAFLEX) 4 MG tablet Take 2 tabs p.o. nightly . Scheduled medications: atorvastatin 40 mg Oral Nightly busPIRone 30 mg Oral Q12H SAMEER chlorthalidone 25 mg Oral Daily citalopram 20 mg Oral Daily divalproex 500 mg Oral Q12H SAMEER piperacillin-tazobactam (ZOSYN) extended infusion 3.375 g Intravenous Q8H pregabalin 150 mg Oral Nightly QUEtiapine 800 mg Oral Nightly sodium chloride (PF) 5 mL Intravenous Q8H SAMEER tiZANidine 8 mg Oral Nightly sodium chloride 0.9 % 100 mL/hr (01/12/24 1841) sodium chloride 0.9 % subcutaneous insulin pump Pharmacotherapy Note: CSII Pump Verification Pharmacist has inspected physical integrity of insulin. The following has been verified with the patient and / or patient's caregiver and by visual inspection: Type of Insulin used in pump: Insulin Lispro (Humalog). Patient is able to explain that the insulin and tubing are to be changed every 48 hours and that the infusion site is rotated with each refill. Vials from patient's own supply have not been spiked, are well within the mail order biller expiration date and have been stored at room temperature (<28 days). Continue with insulin regimen as written. Please call pharmacy with any questions. Pharmacist: Yolie Knott RPh,PharmD Date: 01/12/2024 Contact Information: [phone] documented in this encounter [facility] 01-18-2024 Hospital course Narrative Images from the original note were not included. [facility] DISCHARGE SUMMARY Addie Jean Baptiste Admitted: 01/12/2024 Discharge Date: 01/18/24 PCP Handoff Recommended Outpatient Testing None Results Pending At Discharge None Clinical Summary Addie Jean Baptiste is a 48 y.o. female patient of Stephany Pelayo PA-C with history of T2DM, HTN, bipolar disorder, and chronic back pain presented to [facility] on 01/12/2024 with left toe wound. Assessment and Plan Left diabetic toe ulcer P/w 4 day history of left toe ulcer with purulent drainage Afebrile; normal WBC CRP 8.2, ESR 40 Xray L foot: Forefoot soft tissue swelling without an acute osseous abnormality. S/p zosyn Seen by podiatry CT L foot: ulcer along the distal aspect of the 1st toe with likely adjacent cellulitis. No CT evidence of osteomyelitis in the 1st toe or remainder of the foot MRI could not be obtained due to incompatibility with ICD Pain under control discharge on PO doxy 100 mg twice daily for 10 days Follow-up w/ podiatry in clinic on 01/26 Acute kidney injury Likely due to poorly controlled hypertension creatinine 1.6 (baseline ~1.1-1.2) S/p IV fluids Renal ultrasound normal Counseled about tighter blood pressure control Left sided paresthesias, resolved No focal deficits on exam CT head negative T2DM, with current long-term use of insulin Diabetic peripheral neuropathy Last A1c 9.2% in 09/2023 Home insulin regimen: insulin pump Continue with lantus and SSI Counseled about tighter glycemic control Hypertension Continue metoprolol and SHAJI inhibitor Seizure disorder Continue home keppra Obesity Body mass index is 45.73 kg/m . Discussed dietary and lifestyle modifications Discharge Medications Discharge Medications New Medications Details doxycycline hyclate 100 MG capsule Commonly known as: VIBRAMYCIN Start taking on: January 19, 2024 Take 1 (one) capsule (100 mg total) by mouth 2 (two) times a day Start: 01/19/24. Quantity: 20 capsule Medications To Continue Details * albuterol 90 mcg/actuation inhaler Inhale 1 (one) puff every 4 to 6 hours as needed for shortness of breath or wheezing . Quantity: 18 g * albuterol 2.5 mg /3 mL (0.083 %) nebulizer solution Commonly known as: PROVENTIL Take 3 mL (2.5 mg total) by nebulization every 6 (six) hours as needed for wheezing or shortness of breath . Quantity: 75 mL alcohol swabs Padm Apply 1 (one) Swab. topically 5 (five) times a day Clean area before administering insulin. . Quantity: 150 each atorvastatin 40 MG tablet Commonly known as: LIPITOR Take 1 (one) tablet (40 mg total) by mouth nightly . Quantity: 90 tablet busPIRone 30 MG tablet Commonly known as: BUSPAR Take 1 (one) tablet (30 mg total) by mouth 2 (two) times a day . chlorthalidone 25 MG tablet Commonly known as: HYGROTON Take 1 (one) tablet (25 mg total) by mouth daily . Quantity: 90 tablet citalopram 20 MG tablet Commonly known as: CELEXA Take 1 (one) tablet (20 mg total) by mouth daily . Quantity: 30 tablet cyanocobalamin 1000 MCG tablet Commonly known as: B-12 Take 1 (one) tablet (1,000 mcg total) by mouth daily Reasons: [facility]. Quantity: 90 tablet Dexcom G6 Vibrator Operator Mis Generic drug: blood-glucose meter,continuous Use as directed for continuous glucose monitoring . Quantity: 1 each Dexcom G6 Sensor Simran Generic drug: blood-glucose sensor Use as directed for continuous glucose monitoring change every 10 days . Quantity: 3 each Dexcom G6 Transmitter Simran Generic drug: blood-glucose transmitter Use as directed for continuous glucose monitoring change every 3 months . Quantity: 1 each divalproex 500 MG delayed release (DR) tablet Commonly known as: DEPAKOTE Take 1 (one) tablet (500 mg total) by mouth 2 (two) times a day . ergocalciferol 1,250 mcg (50,000 unit) capsule Commonly known as: Vitamin D2 Take 1 (one) capsule (50,000 Units total) by mouth once a week . Quantity: 12 capsule glucose blood test strip Generic drug: blood sugar diagnostic by Miscellaneous route 3 (three) times a day As a backup to CGM to test blood sugar. One Touch Verio . Quantity: 100 strip Gvoke HypoPen 2-Pack 1 mg/0.2 mL Atin Generic drug: glucagon Inject 0.2 mL (1 mg total) under the skin as needed . Quantity: 2 mL insulin lispro 100 unit/mL injection Commonly known as: AdmeLOG,HumaLOG Inject up to 150 units once daily via pump . Quantity: 50 mL lamoTRIgine 25 MG tablet Commonly known as: LAMICTAL Take 1 tab daily for 2 weeks and then twice a day thereafter . Quantity: 30 tablet lancets Misc 1 Lancet by Miscellaneous route 3 (three) times a day . Quantity: 100 each levETIRAcetam 1000 MG tablet Commonly known as: KEPPRA Take 1 (one) tablet (1,000 mg total) by mouth 2 (two) times a day . Quantity: 180 tablet levothyroxine 75 MCG tablet Commonly known as: SYNTHROID, LEVOTHROID Take 1 (one) tablet (75 mcg total) by mouth once daily . Quantity: 90 tablet lidocaine 4 % cream Commonly known as: LMX Apply topically 3 (three) times a day . Quantity: 90 g lisinopriL 30 MG tablet Commonly known as: PRINIVIL,ZESTRIL Take 1 (one) tablet (30 mg total) by mouth daily . Quantity: 90 tablet metFORMIN 1000 MG tablet Commonly known as: GLUCOPHAGE Take 1 (one) tablet (1,000 mg total) by mouth 2 (two) times a day . metoprolol succinate 50 MG 24 hr tablet Commonly known as: TOPROL-XL Take 1 (one) tablet (50 mg total) by mouth daily . Quantity: 30 tablet miscellaneous medical supply Misc 1 each by Miscellaneous route daily . Quantity: 100 each nortriptyline 25 MG capsule Commonly known as: PAMELOR Take 1 (one) capsule (25 mg total) by mouth nightly . Quantity: 90 capsule omeprazole 40 MG capsule Commonly known as: PRILOSEC Take 1 (one) capsule (40 mg total) by mouth 2 (two) times a day . Omnipod Classic Pods (Gen 3) Crtg Generic drug: insulin pump cart,cont inf,RF ondansetron 4 MG disintegrating tablet Commonly known as: ZOFRAN-ODT Dissolve 1 (one) tablet (4 mg total) on top of tongue every 8 (eight) hours as needed for nausea . Quantity: 20 tablet oxyCODONE-acetaminophen 5-325 mg per tablet Commonly known as: PERCOCET Take 1 (one) tablet by mouth nightly as needed for pain (Days supply per fill: 30) Start: 12/24/23. Quantity: 30 tablet pantoprazole 40 MG tablet Commonly known as: PROTONIX Take 1 (one) tablet (40 mg total) by mouth daily . Quantity: 90 tablet polyethylene glycol 17 gram/dose powder Commonly known as: GLYCOLAX Take 17 (seventeen) g by mouth daily as needed (constipation) . Quantity: 238 g pregabalin 75 MG capsule Commonly known as: LYRICA Take 1 (one) capsule (75 mg total) by mouth 2 (two) times a day (Days supply per fill: 30) . Quantity: 60 capsule QUEtiapine 400 MG tablet Commonly known as: SEROQUEL Take 2 (two) tablets (800 mg total) by mouth nightly . Quantity: 60 tablet timolol 0.5 % ophthalmic solution Commonly known as: TIMOPTIC Administer 1 (one) drop into the left eye daily . traZODone 50 MG tablet Commonly known as: DESYREL Take 1 (one) tablet (50 mg total) by mouth nightly as needed . Quantity: 90 tablet * There are duplicate medications prescribed to the patient Stopped Medications hydrOXYzine 25 MG tablet Commonly known as: ATARAX hydrOXYzine 50 MG capsule Commonly known as: VISTARIL metoprolol tartrate 25 MG tablet Commonly known as: LOPRESSOR tiZANidine 4 MG tablet Commonly known as: ZANAFLEX Physician(s) Follow Up: Stephany Pelayo PA-C [facility] [address] [address] Follow up [facility] Address: [address] [place] [id number] Servicing Counties: [facility] [phone] Shameka Castillo DPM [address] [facility] [phone] Schedule an appointment as soon as possible for a visit in 1 week(s) Condition at Discharge: Stable Disposition: Home On day of discharge, I performed a final bedside evaluation including a physical exam. I reviewed discharge recommendations with the patient in person. Patient instructions, including activity, were given to the patient/family at discharge. Time spent on discharge: > 30 minutes Completed by: Harshad Rizzo MD on 01/18/24, 11:00 AM documented in this encounter [facility] 01-18-2024 Hospital Discharge instructions Pippa Quiles RN - 01/18/2024 10:12 AM EDT Haven Pope RN - 01/13/2024 2:31 [place] [address] Call [phone] ext. [phone] for more information -Summer Reading Program provides an individualized reading program during the summer months. -The [facility] Rx Program is a unique collaborative program in [facility]. The program assists [place] residents to obtain prescriptions in an affordable manner for immediate and ongoing needs. -The Volunteer Income Tax Assistance (KASSY) is a free tax preparation service for low to moderate-income individuals and families. Federal and State tax returns can be completed and electronically filed. -The Emergency Food and Care Home Program (EFSP) is funded by the Department of [place] Security to assist with emergency food and assisted programs. Further information can be obtained by -The Rapid Rehousing and Homeless Prevention Programs are here to help those struggling with homelessness or who are in danger of becoming homeless. -The Payee Program assists individuals with managing their Social Security, [employer] [facility], or VA benefits. This program provides free payee services to individuals. Please note, we do not take on guardianship of the individual. -The Emergency Senior Funding is a melly from the [facility] [place] on Aging to assist those 60 and over with needs that are not met by other services in [place]. The funds are meant to help with unexpected emergency needs that the senior may not be able to afford -The COVID-related funding Individuals or families who have been impacted by COVID could receive assistance with household bills. -The Personal Needs Pantry can provide non-food household essentials to income-eligible households. The pantry is available on Thursday afternoons from 1:30 pm to 3:30 pm -We offer Support Services are offered for individuals who require assistance obtaining a certificate, a valid state ID, or transportation assistance (gas voucher or bus pass) to secure employment. -We are a Resource and Referral agency -many of our staff attend community meetings to stay up-to-date on available resources, services and funding. The following attachments cannot be sent through Care Everywhere.Caregiving: Foot and Toenail Care: General Info (Japanese)Chronic Wound: Healing: General Info (Japanese)documented in this encounter [facility] 01-17-2024 Note [facility] 01-17-2024 Note [facility] 01-16-2024 Consult note Associated Order (s): IP CONSULT TO NEPHROLOGY NEPHROLOGY CONSULTATION [facility] Patient Name: Addie Jean Baptiste MR #: [id number] : 1975 Requesting physician: Hospitalist Reason for consult: SOLO Impression/plan: SOLO: Unknown baseline. Likely multifactorial. Likely ATN secondary to profound hypotension. Noted to be on Zosyn (stopped 01/14). Pt also noted to be on chlorthalidone (stopped 01/13). -Upon chart review baseline creatinine appears to be ~1-1.2mg/dl. -Creatinine on admission 1.06 Mg/DL, with current creatinine 1.63 mg/DL. -UA from 01/13 w/ 100 protein and 150 of glucose. Will repeat. -Renal US pending. -Strict I's and O's. -Will stop IVF. -Patient somewhat drowsy on assessment and likely partly r/t pain medication. No need for emergent HD. 2. Left diabetic toe wound: -X-ray of left foot with soft tissue swelling without acute osseous abnormality. -CT of left foot without contrast showing ulcer of first toe with adjacent cellulitis, no evidence of osteomyelitis in the first toe or remainder of the foot. -Per podiatry, p.o. Doxy on discharge. 3. ?CKD stage II/IIIa: Pt dos not follow with a retail sales teammate in the OP setting. Risk factors for CKD include uncontrolled DM, HTN, obesity, and recurrent AKIs. 4. Diabetes type 2: Last A1c 9.3% 01/12/2024. -On insulin pump. History of Presenting Illness: History obtained from chart review given patient is somewhat drowsy and a poor historian. Addie Jean Baptiste is a 48 y.o. female on hospital day 4 with a history of diabetes type 2, hypertension, bipolar disorder, back pain who presented to [facility] with left toe wound. Per documentation, patient with 4-day history of left toe ulcer with purulent drainage. X-ray of left foot with soft tissue swelling without acute osseous abnormality. CT of left foot without contrast showing ulcer of first toe with adjacent cellulitis, no evidence of osteomyelitis in the first toe or remainder of the foot. Patient denies new medications or NSAID use. We have been consulted to manage her SOLO. History: Past Medical History: Diagnosis Date Anxiety Bipolar 1 disorder (HCC) Bipolar disorder (HCC) Chronic back pain Coronary artery disease Depression Diabetes mellitus (HCC) Hypertension MRSA (methicillin resistant Staphylococcus aureus) Pacemaker Seizures (HCC) Stroke (HCC) Past Surgical History: Procedure Laterality Date CHOLECYSTECTOMY FOOT SURGERY HYSTERECTOMY ORTHOPEDIC SURGERY left foot surgery PACEMAKER INSERTION Family History: Family History Problem Relation Age of Onset Seizures Mother Diabetes Father Hypertension Father Diabetes type II Father [] Unable to obtain due to ventilated and/or neurologic status Social History Socioeconomic History Marital status: Tobacco Use Smoking status: Former Current packs/day: 1.00 Average packs/day: 1 pack/day for 18.1 years (18.1 ttl pk-yrs) Types: Cigarettes Start date: 09/30/2014 Passive exposure: Current Smokeless tobacco: Never Tobacco comments: Vaping 6 mg nicotine Vaping Use Vaping status: Every Day Substances: Nicotine, Flavoring Devices: Pre-filled or refillable cartridge Substance and Sexual Activity Alcohol use: No Alcohol/week: 0.0 standard drinks of alcohol Drug use: Yes Types: Marijuana Comment: smoking as needed, last use thursday night Social Determinants of Health Financial Resource Strain: Medium Risk (01/13/2024) Overall Financial Resource Strain (CARDIA) Difficulty of Paying Living Expenses: Somewhat hard Food Insecurity: Food Insecurity Present (01/12/2024) Hunger Vital Sign Worried About Running Out of Food in the Last Year: Sometimes true Ran Out of Food in the Last Year: Sometimes true Transportation Needs: No Transportation Needs (01/12/2024) PRAPARE - Transportation Lack of Transportation (Medical): No Lack of Transportation (Non-Medical): No Housing Stability: High Risk (01/12/2024) Housing Stability Vital Sign Unable to Pay for Housing in the Last Year: Yes Number of Times Moved in the Last Year: 1 Homeless in the Last Year: No [] Unable to obtain due to ventilated and/or neurologic status Living Arrangements: Family members Support Systems: Family members Home Medications: Outpatient Medications as of 01/16/2024 Medication Sig albuterol (PROVENTIL) 2.5 mg /3 mL (0.083 %) nebulizer solution Take 3 mL (2.5 mg total) by nebulization every 6 (six) hours as needed for wheezing or shortness of breath . albuterol 90 mcg/actuation inhaler Inhale 1 (one) puff every 4 to 6 hours as needed for shortness of breath or wheezing . atorvastatin (LIPITOR) 40 MG tablet Take 1 (one) tablet (40 mg total) by mouth nightly . ergocalciferol (Vitamin D2) 1,250 mcg (50,000 unit) capsule Take 1 (one) capsule (50,000 Units total) by mouth once a week . glucagon (Gvoke HypoPen 2-Pack) 1 mg/0.2 mL AtIn Inject 0.2 mL (1 mg total) under the skin as needed . hydrOXYzine (ATARAX) 25 MG tablet Take 1 (one) tablet (25 mg total) by mouth daily . insulin lispro (AdmeLOG,HumaLOG) 100 unit/mL injection Inject up to 150 units once daily via pump . lamoTRIgine (LAMICTAL) 25 MG tablet Take 1 tab daily for 2 weeks and then twice a day thereafter . levothyroxine (SYNTHROID, LEVOTHROID) 75 MCG tablet Take 1 (one) tablet (75 mcg total) by mouth once daily . lidocaine (LMX) 4 % cream Apply topically 3 (three) times a day . lisinopriL (PRINIVIL,ZESTRIL) 30 MG tablet Take 1 (one) tablet (30 mg total) by mouth daily . metoprolol succinate (TOPROL-XL) 50 MG 24 hr tablet Take 1 (one) tablet (50 mg total) by mouth daily . pantoprazole (PROTONIX) 40 MG tablet Take 1 (one) tablet (40 mg total) by mouth daily . polyethylene glycol (GLYCOLAX) 17 gram/dose powder Take 17 (seventeen) g by mouth daily as needed (constipation) . QUEtiapine (SEROQUEL) 400 MG tablet Take 2 (two) tablets (800 mg total) by mouth nightly . timolol (TIMOPTIC) 0.5 % ophthalmic solution Administer 1 (one) drop into the left eye daily . traZODone (DESYREL) 50 MG tablet Take 1 (one) tablet (50 mg total) by mouth nightly as needed . alcohol swabs PadM Apply 1 (one) Swab. topically 5 (five) times a day Clean area before administering insulin. . blood sugar diagnostic (glucose blood) strips by Miscellaneous route 3 (three) times a day As a backup to CGM to test blood sugar. One Touch Verio . busPIRone (BUSPAR) 30 MG tablet Take 1 (one) tablet (30 mg total) by mouth 2 (two) times a day . chlorthalidone (HYGROTON) 25 MG tablet Take 1 (one) tablet (25 mg total) by mouth daily . citalopram (CELEXA) 20 MG tablet Take 1 (one) tablet (20 mg total) by mouth daily . cyanocobalamin (B-12) 1000 MCG tablet Take 1 (one) tablet (1,000 mcg total) by mouth daily Reasons: [facility]. Dexcom G6 Vibrator Operator Misc Use as directed for continuous glucose monitoring . Dexcom G6 Sensor Simran Use as directed for continuous glucose monitoring change every 10 days . Dexcom G6 Transmitter Simran Use as directed for continuous glucose monitoring change every 3 months . divalproex (DEPAKOTE) 500 MG delayed release (DR) tablet Take 1 (one) tablet (500 mg total) by mouth 2 (two) times a day . hydrOXYzine (VISTARIL) 50 MG capsule Take 1 (one) capsule (50 mg total) by mouth 2 (two) times a day . lancets Misc 1 Lancet by Miscellaneous route 3 (three) times a day . levETIRAcetam (KEPPRA) 1000 MG tablet Take 1 (one) tablet (1,000 mg total) by mouth 2 (two) times a day . metFORMIN (GLUCOPHAGE) 1000 MG tablet Take 1 (one) tablet (1,000 mg total) by mouth 2 (two) times a day . metoprolol tartrate (LOPRESSOR) 25 MG tablet Take 1 (one) tablet (25 mg total) by mouth 2 (two) times a day . miscellaneous medical supply Misc 1 each by Miscellaneous route daily . nortriptyline (PAMELOR) 25 MG capsule Take 1 (one) capsule (25 mg total) by mouth nightly . omeprazole (PRILOSEC) 40 MG capsule Take 1 (one) capsule (40 mg total) by mouth 2 (two) times a day . Omnipod Insulin Refill Crtg ondansetron (ZOFRAN-ODT) 4 MG disintegrating tablet Dissolve 1 (one) tablet (4 mg total) on top of tongue every 8 (eight) hours as needed for nausea . oxyCODONE-acetaminophen (PERCOCET) 5-325 mg per tablet Take 1 (one) tablet by mouth nightly as needed for pain (Days supply per fill: 30) Start: 12/24/23. pregabalin (LYRICA) 75 MG capsule Take 1 (one) capsule (75 mg total) by mouth 2 (two) times a day (Days supply per fill: 30) . tiZANidine (ZANAFLEX) 4 MG tablet Take 2 tabs p.o. nightly . Current Hospital Medications: Scheduled Meds: atorvastatin 40 mg Oral Nightly busPIRone 30 mg Oral Q12H SAMEER citalopram 20 mg Oral Daily doxycycline 100 mg Oral BID levETIRAcetam 1,000 mg Oral BID metoprolol succinate 50 mg Oral Daily pregabalin 150 mg Oral Nightly QUEtiapine 800 mg Oral Nightly sodium chloride (PF) 5 mL Intravenous Q8H SAMEER tiZANidine 8 mg Oral Nightly Continuous Infusions: sodium chloride 0.9 % 100 mL/hr (01/16/24 1047) sodium chloride 0.9 % 100 mL/hr (01/14/24 1256) subcutaneous insulin pump PRN Meds:.albuterol, hydrALAZINE, hydrOXYzine, melatonin, nalOXone AND Notify physician AND naloxone, ondansetron OR ondansetron, oxyCODONE-acetaminophen, senna, Saline lock IV AND sodium chloride (PF) AND sodium chloride (PF) AND sodium chloride 0.9 %, traZODone sodium chloride 0.9 % 100 mL/hr (01/16/24 1047) sodium chloride 0.9 % 100 mL/hr (01/14/24 1256) subcutaneous insulin pump Allergies: I have reviewed the patient's allergies. Iodides, Ketorolac, Tramadol, Codeine, Propoxyphene n-acetaminophen, Adhesive, Compazine [prochlorperazine], Ct: iodinated contrast- oral and iv dye, Fentanyl, Ibuprofen, Latex, Linezolid, Lorazepam, Nsaids (non-steroidal anti-inflammatory drug), Vancomycin, and Propoxyphene Review of Systems: [x] CV, Resp, GI, Neuro, and all other systems reviewed and negative other than listed in HPI. [] Unable to obtain due to intubation and/or neurologic status. Objective Findings: Vitals:BP 112/74 (BP Location: Right arm, Patient Position: Lying) Pulse 61 Temp 97.4 F (36.3 C) (Oral) Resp 18 Ht 5' 2 Wt 128.5 kg (283 lb 4.7 oz) SpO2 95% BMI 51.81 kg/m Intake/Output last 3 shifts: Intake/Output Summary (Last 24 hours) at 01/16/2024 1055 Last data filed at 01/15/2024 2041 Gross per 24 hour Intake 240 ml Output -- Net 240 ml I/O last 3 completed shifts: In: 240 [P.O.:240] Out: - Physical Examination: General: Age appropriate, NAD. HEENT: Normocephalic, no scleral icterus. Neck: No JVD. Heart: Regular, no murmur, no rub/gallop. Lungs: Clear to ascultation, no rales/wheezing/rhonchi. Good chest wall excursion. Abdomen: Soft, nontender, no supra-public fullness or tenderness. Extremities: No clubbing/cyanosis, no edema. Left foot wrapped. Skin: Warm, dry, no rash, no bruise, no petichiae. Neuro: Drowsy Psych: Normal affect. : [] Chow present [x] Chow not present Results/Medications Reviewed: 01/16/24 10:55 AM: Laboratory, Microbiology, Pathology, Radiology, Cardiology, Medications and Transcriptions Laboratory: Results from last 7 days Lab Units 01/16/24 0354 01/15/24 0528 01/14/24 0541 WBC K/mcL 8.82 7.12 7.49 HGB g/dL 9.4* 9.9* 9.7* HCT % 30.1* 31.2* 29.6* PLT K/mcL 285 266 264 Results from last 7 days Lab Units 01/16/24 0354 01/15/24 0528 01/14/24 0541 SODIUM mmol/L 143 143 141 POTASSIUM mmol/L 4.5 4.2 4.1 CHLORIDE mmol/L 111* 109* 107 BICARB mmol/L 25 25 25 BUN mg/dL 27* 27* 28* CREATININE mg/dL 1.63* 1.59* 1.59* EGFR mL/min/1.73 m2 39* 40* 40* GLUCOSE mg/dL 103* 102* 149* CALCIUM mg/dL 8.8 8.7 8.5 PHOSPHORUS mg/dL 4.1 4.8* 4.7* Urinalysis Results from last 7 days Lab Units 01/14/24 2245 COLOR, UR Yellow CLARITY, UR Clear SPEC GRAV 1.017 PH, UR 5.0 GLUCOSE, UR mg/dL 150* KETONES, UR mg/dL Negative BILIRUBIN, UR Negative UROBILINOGEN, UR mg/dL <2.0 BLOOD, UR Negative NITRITE, UR Negative LEUK LORI, UR Negative MUCUS, UR /lpf Rare WBC, UR /hpf 1 BACTERIA, UR /hpf None Seen Risk/Complexity: [x] I have reviewed Progress Notes in the [facility] EHR and CareEverywhere. [x] I have interpreted/reviewed lab tests and radiography data in the [facility] EHR. [x] I have discussed the case with the primary service. [x] I have ordered appropriate tests/labs Comments: Thank you for allowing us to participate in the care of this patient. We will continue to follow. Please call if questions or concerns arise. Potential limitations of the note: Parts of this note were created by dictation via voice recognition software (Equidam). The completed note was reviewed for accuracy. However, there may be subtle errors that were not found during the review. If such errors are discovered, or if there are any questions or concerns regarding the recommendations/plan of care, please contact the author of the note prior to undertaking the recommendations/plan of care. Associated attestation - Gino Smith MD - 01/16/2024 4:07 PM EDT I personally performed a [id number] encounter and discussed in detail with the FRIDA on this encounter today as the FRIDA's evaluation. I have completed the substantive portion of the visit (greater than 50% of total time) which includes but is not limited to reviewing the chart, obtaining history, performing physical exam, reviewing relevant data, medical decision making, and coordination with the care team. I agree with the care plan documented by the FRIDA with the following additions/comments: 48-year-old morbidly obese female with hypertension and diabetes with left diabetic toe ulcer now has acute kidney injury. She had previous SOLO episodes that resolved. She likely has underlying CKD from longstanding uncontrolled diabetes and morbid obesity. She has been hypotensive over the last several days. Her SOLO is likely from hypotension (from chlorthalidone) and possible sepsis. UA with glycosuria and proteinuria. No need for further IV fluids. Creatinine has been stable at 1.6 mg/dL over the last several days. Expect this to improve with adequate blood pressure control. Currently on doxycycline for toe ulcer Physical examination General: Age appropriate, NAD. HEENT: Normocephalic, no scleral icterus. Neck: No JVD. Heart: Regular, no murmur, no rub/gallop. Lungs: Clear to ascultation, no rales/wheezing/rhonchi. Good chest wall excursion. Abdomen: Soft, nontender, no supra-public fullness or tenderness. Extremities: No clubbing/cyanosis, no edema. Skin: Warm, dry, normal turgor, no rash, no bruise, no petichiae. Neuro: No myoclonus or tremor. Psych: Normal affect. Results from last 7 days Lab Units 01/16/24 0354 01/15/24 0528 01/14/24 0541 WBC K/mcL 8.82 7.12 7.49 HGB g/dL 9.4* 9.9* 9.7* HCT % 30.1* 31.2* 29.6* PLT K/mcL 285 266 264 Results from last 7 days Lab Units 01/16/24 0354 01/15/24 0528 01/14/24 0541 SODIUM mmol/L 143 143 141 POTASSIUM mmol/L 4.5 4.2 4.1 CHLORIDE mmol/L 111* 109* 107 BICARB mmol/L 25 25 25 BUN mg/dL 27* 27* 28* CREATININE mg/dL 1.63* 1.59* 1.59* EGFR mL/min/1.73 m2 39* 40* 40* GLUCOSE mg/dL 103* 102* 149* CALCIUM mg/dL 8.8 8.7 8.5 PHOSPHORUS mg/dL 4.1 4.8* 4.7* Laboratory, Microbiology, Pathology, Radiology, Cardiology, Medications and Transcriptions reviewed Medical Decision Making: Please contact us with any questions or concerns. Potential limitations of the note: Parts of this note were created by dictation via voice recognition software (Equidam). The completed note was reviewed for accuracy. However, there may be subtle errors that were not found during the review. If such errors are discovered, or if there are any questions or concerns regarding the recommendations/plan of care, please contact the author of the note prior to undertaking the recommendations/plan of care. [facility] 01-16-2024 Consult note Associated Order (s): IP CONSULT TO NEPHROLOGY NEPHROLOGY CONS[facility]ATION [facility] Patient Name: Addie Jean Baptiste MR #: [id number] : 1975 Requesting physician: Hospitalist Reason for consult: SOLO Impression/plan: SOLO: Unknown baseline. Likely multifactorial. Likely ATN secondary to profound hypotension. Noted to be on Zosyn (stopped 01/14). Pt also noted to be on chlorthalidone (stopped 01/13). -Upon chart review baseline creatinine appears to be ~1-1.2mg/dl. -Creatinine on admission 1.06 Mg/DL, with current creatinine 1.63 mg/DL. -UA from 01/13 w/ 100 protein and 150 of glucose. Will repeat. -Renal US pending. -Strict I's and O's. -Will stop IVF. -Patient somewhat drowsy on assessment and likely partly r/t pain medication. No need for emergent HD. 2. Left diabetic toe wound: -X-ray of left foot with soft tissue swelling without acute osseous abnormality. -CT of left foot without contrast showing ulcer of first toe with adjacent cellulitis, no evidence of osteomyelitis in the first toe or remainder of the foot. -Per podiatry, [email or web address] Fernández on discharge. 3. ?CKD stage II/IIIa: Pt dos not follow with a retail sales teammate in the OP setting. Risk factors for CKD include uncontrolled DM, HTN, obesity, and recurrent AKIs. 4. Diabetes type 2: Last A1c 9.3% 01/12/2024. -On insulin pump. History of Presenting Illness: History obtained from chart review given patient is somewhat drowsy and a poor historian. Addie Jean Baptiste is a 48 y.o. female on hospital day 4 with a history of diabetes type 2, hypertension, bipolar disorder, back pain who presented to [facility] with left toe wound. Per documentation, patient with 4-day history of left toe ulcer with purulent drainage. X-ray of left foot with soft tissue swelling without acute osseous abnormality. CT of left foot without contrast showing ulcer of first toe with adjacent cellulitis, no evidence of osteomyelitis in the first toe or remainder of the foot. Patient denies new medications or NSAID use. We have been consulted to manage her SOLO. History: Past Medical History: Diagnosis Date Anxiety Bipolar 1 disorder (HCC) Bipolar disorder (HCC) Chronic back pain Coronary artery disease Depression Diabetes mellitus (HCC) Hypertension MRSA (methicillin resistant Staphylococcus aureus) Pacemaker Seizures (HCC) Stroke (HCC) Past Surgical History: Procedure Laterality Date CHOLECYSTECTOMY FOOT SURGERY HYSTERECTOMY ORTHOPEDIC SURGERY left foot surgery PACEMAKER INSERTION Family History: Family History Problem Relation Age of Onset Seizures Mother Diabetes Father Hypertension Father Diabetes type II Father [] Unable to obtain due to ventilated and/or neurologic status Social History Socioeconomic History Marital status: Tobacco Use Smoking status: Former Current packs/day: 1.00 Average packs/day: 1 pack/day for 18.1 years (18.1 ttl pk-yrs) Types: Cigarettes Start date: 09/30/2014 Passive exposure: Current Smokeless tobacco: Never Tobacco comments: Vaping 6 mg nicotine Vaping Use Vaping status: Every Day Substances: Nicotine, Flavoring Devices: Pre-filled or refillable cartridge Substance and Sexual Activity Alcohol use: No Alcohol/week: 0.0 standard drinks of alcohol Drug use: Yes Types: Marijuana Comment: smoking as needed, last use thursday night Social Determinants of Health Financial Resource Strain: Medium Risk (01/13/2024) Overall Financial Resource Strain (CARDIA) Difficulty of Paying Living Expenses: Somewhat hard Food Insecurity: Food Insecurity Present (01/12/2024) Hunger Vital Sign Worried About Running Out of Food in the Last Year: Sometimes true Ran Out of Food in the Last Year: Sometimes true Transportation Needs: No Transportation Needs (01/12/2024) PRAPARE - Transportation Lack of Transportation (Medical): No Lack of Transportation (Non-Medical): No Housing Stability: High Risk (01/12/2024) Housing Stability Vital Sign Unable to Pay for Housing in the Last Year: Yes Number of Times Moved in the Last Year: 1 Homeless in the Last Year: No [] Unable to obtain due to ventilated and/or neurologic status Living Arrangements: Family members Support Systems: Family members Home Medications: Outpatient Medications as of 01/16/2024 Medication Sig albuterol (PROVENTIL) 2.5 mg /3 mL (0.083 %) nebulizer solution Take 3 mL (2.5 mg total) by nebulization every 6 (six) hours as needed for wheezing or shortness of breath . albuterol 90 mcg/actuation inhaler Inhale 1 (one) puff every 4 to 6 hours as needed for shortness of breath or wheezing . atorvastatin (LIPITOR) 40 MG tablet Take 1 (one) tablet (40 mg total) by mouth nightly . ergocalciferol (Vitamin D2) 1,250 mcg (50,000 unit) capsule Take 1 (one) capsule (50,000 Units total) by mouth once a week . glucagon (Gvoke HypoPen 2-Pack) 1 mg/0.2 mL AtIn Inject 0.2 mL (1 mg total) under the skin as needed . hydrOXYzine (ATARAX) 25 MG tablet Take 1 (one) tablet (25 mg total) by mouth daily . insulin lispro (AdmeLOG,HumaLOG) 100 unit/mL injection Inject up to 150 units once daily via pump . lamoTRIgine (LAMICTAL) 25 MG tablet Take 1 tab daily for 2 weeks and then twice a day thereafter . levothyroxine (SYNTHROID, LEVOTHROID) 75 MCG tablet Take 1 (one) tablet (75 mcg total) by mouth once daily . lidocaine (LMX) 4 % cream Apply topically 3 (three) times a day . lisinopriL (PRINIVIL,ZESTRIL) 30 MG tablet Take 1 (one) tablet (30 mg total) by mouth daily . metoprolol succinate (TOPROL-XL) 50 MG 24 hr tablet Take 1 (one) tablet (50 mg total) by mouth daily . pantoprazole (PROTONIX) 40 MG tablet Take 1 (one) tablet (40 mg total) by mouth daily . polyethylene glycol (GLYCOLAX) 17 gram/dose powder Take 17 (seventeen) g by mouth daily as needed (constipation) . QUEtiapine (SEROQUEL) 400 MG tablet Take 2 (two) tablets (800 mg total) by mouth nightly . timolol (TIMOPTIC) 0.5 % ophthalmic solution Administer 1 (one) drop into the left eye daily . traZODone (DESYREL) 50 MG tablet Take 1 (one) tablet (50 mg total) by mouth nightly as needed . alcohol swabs PadM Apply 1 (one) Swab. topically 5 (five) times a day Clean area before administering insulin. . blood sugar diagnostic (glucose blood) strips by Miscellaneous route 3 (three) times a day As a backup to CGM to test blood sugar. One Touch Verio . busPIRone (BUSPAR) 30 MG tablet Take 1 (one) tablet (30 mg total) by mouth 2 (two) times a day . chlorthalidone (HYGROTON) 25 MG tablet Take 1 (one) tablet (25 mg total) by mouth daily . citalopram (CELEXA) 20 MG tablet Take 1 (one) tablet (20 mg total) by mouth daily . cyanocobalamin (B-12) 1000 MCG tablet Take 1 (one) tablet (1,000 mcg total) by mouth daily Reasons: [facility]. Dexcom G6 Vibrator Operator Mis Use as directed for continuous glucose monitoring . Dexcom G6 Sensor Simran Use as directed for continuous glucose monitoring change every 10 days . Dexcom G6 Transmitter Simran Use as directed for continuous glucose monitoring change every 3 months . divalproex (DEPAKOTE) 500 MG delayed release (DR) tablet Take 1 (one) tablet (500 mg total) by mouth 2 (two) times a day . hydrOXYzine (VISTARIL) 50 MG capsule Take 1 (one) capsule (50 mg total) by mouth 2 (two) times a day . lancets Misc 1 Lancet by Miscellaneous route 3 (three) times a day . levETIRAcetam (KEPPRA) 1000 MG tablet Take 1 (one) tablet (1,000 mg total) by mouth 2 (two) times a day . metFORMIN (GLUCOPHAGE) 1000 MG tablet Take 1 (one) tablet (1,000 mg total) by mouth 2 (two) times a day . metoprolol tartrate (LOPRESSOR) 25 MG tablet Take 1 (one) tablet (25 mg total) by mouth 2 (two) times a day . miscellaneous medical supply Misc 1 each by Miscellaneous route daily . nortriptyline (PAMELOR) 25 MG capsule Take 1 (one) capsule (25 mg total) by mouth nightly . omeprazole (PRILOSEC) 40 MG capsule Take 1 (one) capsule (40 mg total) by mouth 2 (two) times a day . Omnipod Insulin Refill Crtg ondansetron (ZOFRAN-ODT) 4 MG disintegrating tablet Dissolve 1 (one) tablet (4 mg total) on top of tongue every 8 (eight) hours as needed for nausea . oxyCODONE-acetaminophen (PERCOCET) 5-325 mg per tablet Take 1 (one) tablet by mouth nightly as needed for pain (Days supply per fill: 30) Start: 12/24/23. pregabalin (LYRICA) 75 MG capsule Take 1 (one) capsule (75 mg total) by mouth 2 (two) times a day (Days supply per fill: 30) . tiZANidine (ZANAFLEX) 4 MG tablet Take 2 tabs p.o. nightly . Current Hospital Medications: Scheduled Meds: atorvastatin 40 mg Oral Nightly busPIRone 30 mg Oral Q12H SAMEER citalopram 20 mg Oral Daily doxycycline 100 mg Oral BID levETIRAcetam 1,000 mg Oral BID metoprolol succinate 50 mg Oral Daily pregabalin 150 mg Oral Nightly QUEtiapine 800 mg Oral Nightly sodium chloride (PF) 5 mL Intravenous Q8H SAMEER tiZANidine 8 mg Oral Nightly Continuous Infusions: sodium chloride 0.9 % 100 mL/hr (01/16/24 1047) sodium chloride 0.9 % 100 mL/hr (01/14/24 1256) subcutaneous insulin pump PRN Meds:.albuterol, hydrALAZINE, hydrOXYzine, melatonin, nalOXone AND Notify physician AND naloxone, ondansetron OR ondansetron, oxyCODONE-acetaminophen, senna, Saline lock IV AND sodium chloride (PF) AND sodium chloride (PF) AND sodium chloride 0.9 %, traZODone sodium chloride 0.9 % 100 mL/hr (01/16/24 1047) sodium chloride 0.9 % 100 mL/hr (01/14/24 1256) subcutaneous insulin pump Allergies: I have reviewed the patient's allergies. Iodides, Ketorolac, Tramadol, Codeine, Propoxyphene n-acetaminophen, Adhesive, Compazine [prochlorperazine], Ct: iodinated contrast- oral and iv dye, Fentanyl, Ibuprofen, Latex, Linezolid, Lorazepam, Nsaids (non-steroidal anti-inflammatory drug), Vancomycin, and Propoxyphene Review of Systems: [x] CV, Resp, GI, Neuro, and all other systems reviewed and negative other than listed in HPI. [] Unable to obtain due to intubation and/or neurologic status. Objective Findings: Vitals:BP 112/74 (BP Location: Right arm, Patient Position: Lying) Pulse 61 Temp 97.4 F (36.3 C) (Oral) Resp 18 Ht 5' 2 Wt 128.5 kg (283 lb 4.7 oz) SpO2 95% BMI 51.81 kg/m Intake/Output last 3 shifts: Intake/Output Summary (Last 24 hours) at 01/16/2024 1055 Last data filed at 01/15/2024 2041 Gross per 24 hour Intake 240 ml Output -- Net 240 ml I/O last 3 completed shifts: In: 240 [P.O.:240] Out: - Physical Examination: General: Age appropriate, NAD. HEENT: Normocephalic, no scleral icterus. Neck: No JVD. Heart: Regular, no murmur, no rub/gallop. Lungs: Clear to ascultation, no rales/wheezing/rhonchi. Good chest wall excursion. Abdomen: Soft, nontender, no supra-public fullness or tenderness. Extremities: No clubbing/cyanosis, no edema. Left foot wrapped. Skin: Warm, dry, no rash, no bruise, no petichiae. Neuro: Drowsy Psych: Normal affect. : [] Chow present [x] Chow not present Results/Medications Reviewed: 01/16/24 10:55 AM: Laboratory, Microbiology, Pathology, Radiology, Cardiology, Medications and Transcriptions Laboratory: Results from last 7 days Lab Units 01/16/24 0354 01/15/24 0528 01/14/24 0541 WBC K/mcL 8.82 7.12 7.49 HGB g/dL 9.4* 9.9* 9.7* HCT % 30.1* 31.2* 29.6* PLT K/mcL 285 266 264 Results from last 7 days Lab Units 01/16/24 0354 01/15/24 0528 01/14/24 0541 SODIUM mmol/L 143 143 141 POTASSIUM mmol/L 4.5 4.2 4.1 CHLORIDE mmol/L 111* 109* 107 BICARB mmol/L 25 25 25 BUN mg/dL 27* 27* 28* CREATININE mg/dL 1.63* 1.59* 1.59* EGFR mL/min/1.73 m2 39* 40* 40* GLUCOSE mg/dL 103* 102* 149* CALCIUM mg/dL 8.8 8.7 8.5 PHOSPHORUS mg/dL 4.1 4.8* 4.7* Urinalysis Results from last 7 days Lab Units 01/14/24 2245 COLOR, UR Yellow CLARITY, UR Clear SPEC GRAV 1.017 PH, UR 5.0 GLUCOSE, UR mg/dL 150* KETONES, UR mg/dL Negative BILIRUBIN, UR Negative UROBILINOGEN, UR mg/dL <2.0 BLOOD, UR Negative NITRITE, UR Negative LEUK LORI, UR Negative MUCUS, UR /lpf Rare WBC, UR /hpf 1 BACTERIA, UR /hpf None Seen Risk/Complexity: [x] I have reviewed Progress Notes in the [facility] EHR and CareEverywhere. [x] I have interpreted/reviewed lab tests and radiography data in the [facility] EHR. [x] I have discussed the case with the primary service. [x] I have ordered appropriate tests/labs Comments: Thank you for allowing us to participate in the care of this patient. We will continue to follow. Please call if questions or concerns arise. Potential limitations of the note: Parts of this note were created by dictation via voice recognition software (Equidam). The completed note was reviewed for accuracy. However, there may be subtle errors that were not found during the review. If such errors are discovered, or if there are any questions or concerns regarding the recommendations/plan of care, please contact the author of the note prior to undertaking the recommendations/plan of care. Associated attestation - Gino Smith MD - 01/16/2024 4:07 PM EDT I personally performed a [id number] encounter and discussed in detail with the FRIDA on this encounter today as the FRIDA's evaluation. I have completed the substantive portion of the visit (greater than 50% of total time) which includes but is not limited to reviewing the chart, obtaining history, performing physical exam, reviewing relevant data, medical decision making, and coordination with the care team. I agree with the care plan documented by the FRIDA with the following additions/comments: 48-year-old morbidly obese female with hypertension and diabetes with left diabetic toe ulcer now has acute kidney injury. She had previous SOLO episodes that resolved. She likely has underlying CKD from longstanding uncontrolled diabetes and morbid obesity. She has been hypotensive over the last several days. Her SOLO is likely from hypotension (from chlorthalidone) and possible sepsis. UA with glycosuria and proteinuria. No need for further IV fluids. Creatinine has been stable at 1.6 mg/dL over the last several days. Expect this to improve with adequate blood pressure control. Currently on doxycycline for toe ulcer Physical examination General: Age appropriate, NAD. HEENT: Normocephalic, no scleral icterus. Neck: No JVD. Heart: Regular, no murmur, no rub/gallop. Lungs: Clear to ascultation, no rales/wheezing/rhonchi. Good chest wall excursion. Abdomen: Soft, nontender, no supra-public fullness or tenderness. Extremities: No clubbing/cyanosis, no edema. Skin: Warm, dry, normal turgor, no rash, no bruise, no petichiae. Neuro: No myoclonus or tremor. Psych: Normal affect. Results from last 7 days Lab Units 01/16/24 0354 01/15/24 0528 01/14/24 0541 WBC K/mcL 8.82 7.12 7.49 HGB g/dL 9.4* 9.9* 9.7* HCT % 30.1* 31.2* 29.6* PLT K/mcL 285 266 264 Results from last 7 days Lab Units 01/16/24 0354 01/15/24 0528 01/14/24 0541 SODIUM mmol/L 143 143 141 POTASSIUM mmol/L 4.5 4.2 4.1 CHLORIDE mmol/L 111* 109* 107 BICARB mmol/L 25 25 25 BUN mg/dL 27* 27* 28* CREATININE mg/dL 1.63* 1.59* 1.59* EGFR mL/min/1.73 m2 39* 40* 40* GLUCOSE mg/dL 103* 102* 149* CALCIUM mg/dL 8.8 8.7 8.5 PHOSPHORUS mg/dL 4.1 4.8* 4.7* Laboratory, Microbiology, Pathology, Radiology, Cardiology, Medications and Transcriptions reviewed Medical Decision Making: Please contact us with any questions or concerns. Potential limitations of the note: Parts of this note were created by dictation via voice recognition software (Equidam). The completed note was reviewed for accuracy. However, there may be subtle errors that were not found during the review. If such errors are discovered, or if there are any questions or concerns regarding the recommendations/plan of care, please contact the author of the note prior to undertaking the recommendations/plan of care. Physical Therapy PHYSICAL THERAPY EVALUATION Skilled Therapy Needs After Discharge Anticipate Resolution of Current Assessment Limitations Including: Pain, Mechanical Barriers Are diet consultant Therapy Services Needed After Discharge: Yes Intensity of diet consultant Therapy: 2-3 days per week Anticipated Duration of diet consultant Therapy: Duration 10 - 30 days PT DME Recommendation: Wheeled Walker Rehab Potential: Excellent, For goals Outcomes Measures Prior Function - Basic Mobility Raw Score: 24 Points Prior Function - Basic Mobility % Impaired: 0% AM-PAC Basic Mobility Raw Score: 16 Points AM-PAC Basic Mobility % Impaired: 47.12% Physical Therapy Assessment History: The following factors influence the patient's participation in the PT plan of care: Environmental Factors: Steps to enter home The following co-morbidities (from this admission or prior) influence the patient's participation in this plan of care: Diabetic ulcer of left great toe, CKD, COPD Number of History elements affecting this patient's PT plan of care: 1 to 2 Examination of Body Systems: The patient presents with: Musculoskeletal impairments: Strength, Functional Endurance Neurologic Impairments: Balance Cardiopulmonary Impairments: Activity Tolerance. These impairments result in limitations of Gait, Functional Transfers, Safety Awareness, Activity Tolerance. These impairments result in restrictions of Household mobility. Number of Body Systems elements affecting this patient's PT plan of care: 3 or more. Clinical Presentation: The patient's clinical presentation for this PT evaluation is evolving with changing characteristics as evidenced by current PT documentation. Activity Tolerance Activity Tolerance: Tolerates 10 - 20 min activity with multiple rests Therapy Precautions Orthotic Devices: Yes Lower Extremity: Left (Marian shoe on) Weight Bearing Status: X LLE: Partial Wt bearing (Heel WB) General Rehab Precautions: Fall risk Balance Assessment Sitting Balance - Static: Independent Sitting Balance - Dynamic: Independent Standing Balance - Static: Minimal assist Immigration Coordinator - Standing Static: BUE Standing Balance - Dynamic: Minimal assist, 2 person Immigration Coordinator - Standing Dynamic: same lunchroom aide used for static standing tasks Bed Mobility Supine to Sit: (NT- Patient was up in chair before and After PT eval) Transfers Sit to Stand: Contact guard assist Bed to Chair: Contact guard assist Immigration Coordinator: BUE (Patient uses cane, but reports that she does not get up out of bed much) Gait/Locomotion Gait Assistance: Minimal assist, 2 person assist Assistive Device: BUE (Patient uses) Distance: 15 Feet Pattern: L decreased step length, R decreased step length, over reliance on upper extremities Weight Bearing Status: able to maintain (with occasional cue) Additional Assessment Details Home Living Obtained Home Living and PLOF info from: Patient Lives With: Son, Other (Comment) (DIL) Type of Home: House Home Layout: Two level, Able to live on main level with bedroom/bathroom, Full bath on second level Steps to enter home: Yes Rails to enter home: None Number of stairs to enter home: 1 Bathroom Shower/Tub: Tub/shower unit Bathroom Equipment: Bedside commode, Shower chair, Hand-held showerhead Mobility Equipment: Cane, Wheelchair - manual Additional Objective Details - Home Living: (Patient uses cane, but reports that she does not get up out of bed much) Prior Level of Function Receives Help From: Family Level of Liberty - Transfers/Ambulation/Mobility: Independent with functional transfers, Independent with household ambulation Level of Liberty - ADLs: Needs assistance Level of Liberty - Homemaking: Independent Past Medical History: Diagnosis Date Anxiety Bipolar 1 disorder (HCC) Bipolar disorder (HCC) Chronic back pain Coronary artery disease Depression Diabetes mellitus (HCC) Hypertension MRSA (methicillin resistant Staphylococcus aureus) Pacemaker Seizures (HCC) Stroke (HCC) Past Surgical History: Procedure Laterality Date CHOLECYSTECTOMY FOOT SURGERY HYSTERECTOMY ORTHOPEDIC SURGERY left foot surgery PACEMAKER INSERTION For complete objective data, detailed plan of care and patient education refer to: PT Evaluation flowsheet, PT Evaluation and Treatment flowsheet, PT Treatment flowsheet, patient Plan of Care, Plan of Care progress note, and Patient Education. This note stands as the current Discharge Summary upon patient discharge from the hospital or completion of Physical Therapy Plan. Occupational Therapy OCCUPATIONAL THERAPY EVALUATION Skilled Therapy Needs After Discharge Anticipate Resolution of Current Assessment Limitations Including: Social Support, Mechanical Barriers, Pain Are OT Skilled Therapy Services Needed After Discharge: No OT DME Recommendation: To be determined at next level of care Rehab Potential: Fair, For goals Patient reports no increased pain upon end of evaluation, left with all immediate needs met, and call light within reach. White board was updated and RN was notified of patient's mobility status. Patient left upright in bedside chair upon OT exit. No chair alarm engaged due to fall risk score of 2 at time of session. Patient is somewhat self limiting and reports she is not super active at home. Outcomes Measures Prior Function Daily Activity Raw Score: 23 Prior Function Daily Activity % Impaired: 15.86% AM-PAC Daily Activity Raw Score: 16 AM-PAC Daily Activity % Impaired: 53.32% Occupational Therapy Assessment The patient's current functional participation deficits are functional mobility, meal preparation, home management, toileting, bathing, UE dressing, LE dressing, grooming. This reduced independence will limit their life roles of premorbid level individual. The patient's co morbidities do affect patient performance in the above activities and roles. The performance deficits are a result of musculoskeletal, neurological, cardiopulmonary, psychological impairment(s) in generalized debility, left, lower extremity including strength, balance, coordination, pain, respiratory capacity, acitvity tolerance, insight, safety, and knowledge deficit, pain intolerance, motivation. The patient's home setup is a nephrologist, family / caregiver support is a nephrologist for return to prior level of function. The patient's education level is a nephrologist, compliance is a nephrologist to return to prior level of function. During the assessment, minimal to moderate modification of task was required and multiple treatment options were identified in the plan of care. This consultation required expanded review of the medical and therapy history. Activity Tolerance Activity Tolerance: Tolerates less than 10 min activity, no significant change in vital signs Therapy Precautions Orthotic Devices: Yes Lower Extremity: Left (Marian Shoe) Weight Bearing Status: X LLE: Partial Wt bearing (Heel WB) General Rehab Precautions: Fall risk Cognition Overall Cognitive Status: Within Functional Limits Arousal/Alertness: Appropriate responses to stimuli Orientation Level: Oriented X4 Safety Judgment: Decreased awareness of need for assistance, Decreased awareness of need for safety Problem Solving: Assistance required to generate solutions, Assistance required to implement solutions, Assistance required to identify errors made ADL Feeding: Supervision Grooming: Contact guard assist Upper Body Bathing: Contact guard assist Lower Body Bathing: Minimal assist Upper Body Dressing: Contact guard assist Lower Body Dressing: Minimal assist Toileting: Contact guard assist, Increased time to complete, Use of adaptive equipment Functional Mobility: Contact guard assist, Additional time, Adaptive equipment Bed Mobility Rolling: Contact guard assist Supine to Sit: Contact guard assist Immigration Coordinator: bedrails Functional Transfers Sit to Stand: Contact guard assist Bed to Chair Transfers: Contact guard assist Stand Pivot Transfers: Contact guard assist Immigration Coordinator: (gait belt, shoe, sock) Additional Assessment Details Education provided on increasing activity at home vs. Wound healing. Patient reports she only gets up to use the bathroom, spends a lot of time on her tablet. Home Living Obtained Home Living and PLOF info from: Patient Lives With: Son, Other (Comment) (DIL) Type of Home: House Home Layout: Two level, Able to live on main level with bedroom/bathroom, Full bath on main level Steps to enter home: Yes Rails to enter home: None Number of stairs to enter home: 1 Bathroom Shower/Tub: Tub/shower unit Bathroom Equipment: Bedside commode, Shower chair, Hand-held showerhead Mobility Equipment: Cane, Wheelchair - manual Additional Objective Details - Home Living: Patient uses cane, but reports that she does not get up out of bed much Prior Level of Function Receives Help From: Family Level of Liberty - Transfers/Ambulation/Mobility: Independent with functional transfers Level of Liberty - ADLs: Needs assistance Level of Liberty - Homemaking: Independent Past Medical History: Diagnosis Date Anxiety Bipolar 1 disorder (HCC) Bipolar disorder (HCC) Chronic back pain Coronary artery disease Depression Diabetes mellitus (HCC) Hypertension MRSA (methicillin resistant Staphylococcus aureus) Pacemaker Seizures (HCC) Stroke (HCC) Past Surgical History: Procedure Laterality Date CHOLECYSTECTOMY FOOT SURGERY HYSTERECTOMY ORTHOPEDIC SURGERY left foot surgery PACEMAKER INSERTION For complete objective data, detailed plan of care and patient education refer to: OT Evaluation flowsheet, OT Evaluation and Treatment flowsheet, OT Treatment flowsheet, patient Plan of Care, Plan of Care progress note, and Patient Education. This note stands as the current Discharge Summary upon patient discharge from the hospital or completion of Occupational Therapy Plan of Care. Associated Order(s): IP CONSULT TO HOME HEALTH HUB 01/13/24 2:37 PM - Liaison received a Home Health Hub consult for [facility] needs. Patient's agency choice is no preference (would prefer not [facility]) Barriers to finding accepting [facility] agency: pt's home location (not many [facility] agencies in area), insurance not widely accepted [facility] agency: Accepted or Pending Name of agency: PENDING [facility] Referrals sent to: (names of agencies) [facility] - [facility] [place] [facility] [place] Please be aware [facility] agencies have up to 24hours to respond. Many [facility] agencies closed on weekends, may take until Thursday to receive responses. [facility] created for the following services: yes - SN/PT/OT Verify the demographics (residential address) [address] [place] [id number] What is the primary number to reach you? [phone] Who is your family physician/primary care physician? Stephany Pelayo PA-C [phone] Following physician will be: (list first name/last name) Do you have a caregiver and/or teachable caregiver (list relationship, name & phone #)? lives with family Estimated Discharge Date (KUNAL): 01/14 If discharge needs change, please reach out to [facility] Liaison assigned on treatment team as [facility] is not notified of additional consults to [facility] once team is following. Thank you. Associated Order(s): IP CONSULT TO CARE MANAGEMENT Care Management Consult Note Date: 01/13/2024 Time: 2:25 PM Patient Name: Addie Jean Baptiste Date of : 1975 Reason for Consult: Discharge Plan: Plan A: Home Health Care Services Plan B: Home Health Care Services Discharging Transportation Plan: Auto Discharge Plan Status: Met F2F with pt at bedside, discussed discharge needs. Pt lives with her son and [id number], they provide support. She states that she has all needed equipment in the home, including a hospital bed, wheelchair and electric scooter. She states that she is not very mobile at baseline, spends a lot of her time in bed in her room. Her family provides transportation, meals . She denies any difficulty getting her medications or getting to the doctor. Pt did express need for resources in the community. Referral made to [facility] and resources added to [facility]. SDOH screening addressed. Pt would like to have home health at discharge, she states no preference of an agency but does not wish to have [facility]. Referral to [facility] entered. Plan A: Pt will return home with her family, home health services to be arranged. Plan B: Will follow pt for any additional needs. Assessment and Background Information: Living Arrangements: Family members Support Systems: Family members Assistance Needed: n/a Type of Residence: Private residence Prior to Admission Home Care Services: No Current Home Equipment: (Electric scooter) Associated Order(s): IP CONSULT TO ENTEROSTOMAL THERAPY Consulted to see patient for her left great toe and abdominal wound. Patient sitting on edge of bed watching TV. Dr Joel Castillo in room as well. Applied medi-honey to her abdominal wound and covered with a Mepilex. Used betadine swab to her left great toe and covered with guaze/tape. Her left great toenail is completely off and her toe is red. Her abdominal wound measures 1cm x 1cm and has a white wound bed and gema wound is red. Associated Order(s): IP CONSULT TO PODIATRY Images from the original note were not included. [facility] ASSESSMENT AND PLAN: Diabetes with neuropathy left hallux ulceration Left foot cellulitis The patient was seen and evaluated and discussed findings with patient. Patient's left hallux distal tuft ulceration encompasses the entire distal one half of the toe. He does not involve proximal to the interphalangeal joint. There is increased redness warmth and drainage noted but is reportedly improved even overnight since her admission. I reviewed the patient's x-rays and clinical presentation today at this point no surgical invention at this time we will await the results of the MRI pending those results she may need amputation but at this point she will likely heal with aggressive wound care management. - OR Plans: none - ABX: PO Doxy on discharge - DSG: betadine gauze bandage - WBS: heel weight bearing with marian shoe - XR : reviewed. CT ordered, MRI unable to complete due to ICD Answered questions and rediscussed plan at length with the patient and family if present. Discussed plan with other teams' providers. We discussed with the patient the pathology, etiology, pathogenesis, current condition management plan and disposition. This was discussed at various times during the day with representatives from nursing, pharmacy, case management, social work, and therapies as needed. We discussed with the patient he etiology of problems listed in the Assessment and Plan section, as well as risk factors, natural course, prognosis, treatment options with associated risks and benefits. Importance of compliance with the treatment plan was emphasized. I explained test results to date, as well as additional diagnostic recommendations. I explained discharge plans, including the required post-hospitalization care, treatment, and services. All questions were answered and ample time was provided. 48 y.o. YEAR OLD female WAS ADMITTED TO [facility] ON 01/12/2024 WITH Chief Complaint Patient presents with Toe Injury Wound Check I AM BEING ASKED TO SEE THIS PATIENT AT THE REQUEST OF DR. Todd Hennessy MD . The patient presents with an ulceration sub left hallux. The ulcer has been present for a few days. The patient denies nausea, fever, vomiting, chills or shortness of breath. PODIATRIC HISTORY AND PHYSICAL REVEALS: The patient is AOx3 and in no acute distress. VASCULAR: DP and PT pulses are 1/4 b/l. CFT <3sec. Pedal hair is absent. Skin temperature is warm to warm from proximal tibia to toes b/l. DERMATOLOGIC: Toenails 1-10 are within normal limits. Turgor and texture of skin is NEUROLOGICAL: Epicritic and gross sensation is intact. Protective and vibratory sensation is diminished. Sharp, dull, hot and cold , vibratory, and proprioception sensations are: diminished. Achilles and patellar deep tendon reflexes intact. ORTHO: No pain with palpation secondary to neuropathy. LABS: Results from last 7 days Lab Units 01/13/24 0538 01/12/24 1505 SODIUM mmol/L 138 140 POTASSIUM mmol/L 4.1 4.1 CHLORIDE mmol/L 105 104 BUN mg/dL 27* 24 CREATININE mg/dL 1.32* 1.06 GLUCOSE mg/dL 157* 109* CALCIUM mg/dL 8.4 9.0 Results from last 7 days Lab Units 01/13/24 0720 01/12/24 1505 WBC K/mcL 7.09 9.68 HGB g/dL 9.3* 11.7* HCT % 27.5* 34.6* PLT K/mcL 238 291 MONOS% % -- 4.9 EOSIN% % -- 6.5 Invalid input(s): LABALBU * Cannot find OR log * IMAGING: XR Foot Left 3+ Views (Standard) Result Date: 01/12/2024 EXAMINATION: XR FOOT LEFT 3+ VIEWS (STANDARD) 01/12/2024 3:26 pm HISTORY: ORDERING SYSTEM PROVIDED HISTORY: Circumferential sloughing of skin of first great toe, poorly controlled diabetic, concern for osteomyelitis, possible recent abscess that was drained at home, TECHNOLOGIST PROVIDED HISTORY: Illness/Other Reason for exam: Circumferential sloughing of skin of first great toe, poorly controlled diabetic, concern for osteomyelitis, possible recent abscess that was drained at home Cancer History: u Surgery, RadiationHistory: pacemaker Encounter Type: Initial Additional signs and symptoms: na ORDERING SYSTEM PROVIDED DIAGNOSIS CODES: COMPARISON: Left foot radiographs dated 01/09/2024. FINDINGS: Three views. No fractures. 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 Distal fibular ORIF, partially imaged. No aggressive osseous lesions or bony demineralization. Forefoot soft tissue swelling. Forefoot soft tissue swelling without an acute osseous abnormality. If there is high clinical concern for osteomyelitis, recommend MRI which is more sensitive. Workstation ID: [id number] PAST MEDICAL HISTORY: Past Medical History: Diagnosis Date Anxiety Bipolar 1 disorder (HCC) Bipolar disorder (HCC) Chronic back pain Coronary artery disease Depression Diabetes mellitus (HCC) Hypertension MRSA (methicillin resistant Staphylococcus aureus) Pacemaker Seizures (HCC) Stroke (HCC) PAST SURGICAL HISTORY: Past Surgical History: Procedure Laterality Date CHOLECYSTECTOMY FOOT SURGERY HYSTERECTOMY ORTHOPEDIC SURGERY left foot surgery PACEMAKER INSERTION FAMILY MEDICAL HISTORY: Family History Problem Relation Age of Onset Seizures Mother Diabetes Father Hypertension Father Diabetes type II Father SOCIAL HISTORY: Social History Tobacco Use Smoking status: Former Current packs/day: 1.00 Average packs/day: 1 pack/day for 18.1 years (18.1 ttl pk-yrs) Types: Cigarettes Start date: 09/30/2014 Passive exposure: Current Smokeless tobacco: Never Tobacco comments: Vaping 6 mg nicotine Vaping Use Vaping status: Every Day Substances: Nicotine, Flavoring Devices: Pre-filled or refillable cartridge Substance Use Topics Alcohol use: No Alcohol/week: 0.0 standard drinks of alcohol Drug use: Yes Types: Marijuana Comment: smoking as needed, last use thursday night DRUG/FOOD ALLERGIES: Iodides, Ketorolac, Tramadol, Codeine, Propoxyphene n-acetaminophen, Adhesive, Compazine [prochlorperazine], Ct: iodinated contrast- oral and iv dye, Fentanyl, Ibuprofen, Latex, Linezolid, Lorazepam, Nsaids (non-steroidal anti-inflammatory drug), Vancomycin, and Propoxyphene MEDICATIONS: Current Facility-Administered Medications Medication Dose Route Frequency Provider Last Rate Last Admin albuterol (PROVENTIL) 2.5 mg /3 mL (0.083 %) nebulizer solution 2.5 mg 2.5 mg Nebulization Q6H PRN Mk Leigh MD atorvastatin (LIPITOR) tablet 40 mg 40 mg Oral Nightly Mk Leigh MD 40 mg at 01/12/248 busPIRone (BUSPAR) tablet 30 mg 30 mg Oral Q12H [facility] Mk Leigh MD 30 mg at 01/12/24 2218 chlorthalidone (HYGROTON) tablet 25 mg 25 mg Oral Daily Mk Leigh MD citalopram (CELEXA) tablet 20 mg 20 mg Oral Daily Mk Leigh MD divalproex (DEPAKOTE) delayed release (DR) tablet 500 mg 500 mg Oral Q12H [facility] Mk Leigh MD hydrOXYzine (ATARAX) tablet 50 mg 50 mg Oral TID PRN Mk Leigh MD melatonin Tab 5 mg 5 mg Oral Nightly PRN Estrella Lainez PA-C naloxone (NARCAN) injection 0.1 mg 0.1 mg Intravenous PRN Estrella Lainez PA-C And naloxone (NARCAN) injection 0.4 mg 0.4 mg Intravenous PRN Estrella Lainez PA-C ondansetron (ZOFRAN-ODT) disintegrating tablet 4 mg 4 mg Oral Q6H PRN Estrella Lainez PA-C Or ondansetron (ZOFRAN) injection 4 mg 4 mg Intravenous Q6H PRN Estrella Lainez PA-C oxyCODONE-acetaminophen (PERCOCET) 5-325 mg per tablet 1 tablet 1 tablet Oral Q6H PRN Estrella Lainez PA-C piperacillin-tazobactam (ZOSYN) IVPB 3.375 g (premix) 3.375 g Intravenous Q8H Estrella Lainez PA-C 12.5 mL/hr at 01/13/24 0450 3.375 g at 01/13/24 0450 pregabalin (LYRICA) capsule 150 mg 150 mg Oral Nightly Mk Leigh MD 150 mg at 01/12/24 2218 QUEtiapine (SEROQUEL) tablet 800 mg 800 mg Oral Nightly Mk Leigh MD 800 mg at 01/12/24 2218 senna (SENOKOT) tablet 8.6 mg 1 tablet Oral BID PRN Estrella Lainez PA-C sodium chloride (PF) (NS) flush 5 mL 5 mL Intravenous PRN Estrella Lainez PA-C And sodium chloride (PF) (NS) flush 5 mL 5 mL Intravenous Q8H SAMEER Estrella Lainez PA-C And sodium chloride 0.9% (NS) 0-150 mL/hr Intravenous PRN Estrella Lainez PA-C sodium chloride 0.9% (NS) 100 mL/hr Intravenous Continuous Matheus Chavira PA-C 100 mL/hr at 01/12/24 1841 100 mL/hr at 01/12/24 1841 subcutaneous insulin pump Misc Miscellaneous Continuous Mk Leigh MD 2 Units/hr at 01/12/24 2215 tiZANidine (ZANAFLEX) tablet 8 mg 8 mg Oral Nightly Mk Leigh MD 8 mg at 01/12/24 2218 traZODone (DESYREL) tablet 50 mg 50 mg Oral Nightly PRN Estrella Lainez PA-C Medications Prior to Admission Medication Sig Dispense Refill Last Dose albuterol (PROVENTIL) 2.5 mg /3 mL (0.083 %) nebulizer solution Take 3 mL (2.5 mg total) by nebulization every 6 (six) hours as needed for wheezing or shortness of breath . 75 mL 3 albuterol 90 mcg/actuation inhaler Inhale 1 (one) puff every 4 to 6 hours as needed for shortness of breath or wheezing . 18 g 3 atorvastatin (LIPITOR) 40 MG tablet Take 1 (one) tablet (40 mg total) by mouth nightly . 90 tablet 0 ergocalciferol (Vitamin D2) 1,250 mcg (50,000 unit) capsule Take 1 (one) capsule (50,000 Units total) by mouth once a week . 12 capsule 1 glucagon (Gvoke HypoPen 2-Pack) 1 mg/0.2 mL AtIn Inject 0.2 mL (1 mg total) under the skin as needed . 2 mL 1 hydrOXYzine (ATARAX) 25 MG tablet Take 1 (one) tablet (25 mg total) by mouth daily . insulin lispro (AdmeLOG,HumaLOG) 100 unit/mL injection Inject up to 150 units once daily via pump . 50 mL 5 lamoTRIgine (LAMICTAL) 25 MG tablet Take 1 tab daily for 2 weeks and then twice a day thereafter . 30 tablet 2 levothyroxine (SYNTHROID, LEVOTHROID) 75 MCG tablet Take 1 (one) tablet (75 mcg total) by mouth once daily . 90 tablet 0 lidocaine (LMX) 4 % cream Apply topically 3 (three) times a day . 90 g 3 lisinopriL (PRINIVIL,ZESTRIL) 30 MG tablet Take 1 (one) tablet (30 mg total) by mouth daily . 90 tablet 1 metoprolol succinate (TOPROL-XL) 50 MG 24 hr tablet Take 1 (one) tablet (50 mg total) by mouth daily . 30 tablet 1 pantoprazole (PROTONIX) 40 MG tablet Take 1 (one) tablet (40 mg total) by mouth daily . 90 tablet 0 polyethylene glycol (GLYCOLAX) 17 gram/dose powder Take 17 (seventeen) g by mouth daily as needed (constipation) . 238 g 1 QUEtiapine (SEROQUEL) 400 MG tablet Take 2 (two) tablets (800 mg total) by mouth nightly . 60 tablet 2 timolol (TIMOPTIC) 0.5 % ophthalmic solution Administer 1 (one) drop into the left eye daily . traZODone (DESYREL) 50 MG tablet Take 1 (one) tablet (50 mg total) by mouth nightly as needed . 90 tablet 0 alcohol swabs PadM Apply 1 (one) Swab. topically 5 (five) times a day Clean area before administering insulin. . 150 each 5 blood sugar diagnostic (glucose blood) strips by Miscellaneous route 3 (three) times a day As a backup to CGM to test blood sugar. One Touch Verio . 100 strip 5 busPIRone (BUSPAR) 30 MG tablet Take 1 (one) tablet (30 mg total) by mouth 2 (two) times a day . chlorthalidone (HYGROTON) 25 MG tablet Take 1 (one) tablet (25 mg total) by mouth daily . 90 tablet 1 citalopram (CELEXA) 20 MG tablet Take 1 (one) tablet (20 mg total) by mouth daily . 30 tablet 2 cyanocobalamin (B-12) 1000 MCG tablet Take 1 (one) tablet (1,000 mcg total) by mouth daily Reasons: [facility]. 90 tablet 1 Dexcom G6 Vibrator Operator Misc Use as directed for continuous glucose monitoring . 1 each 0 Dexcom G6 Sensor Simran Use as directed for continuous glucose monitoring change every 10 days . 3 each 11 Dexcom G6 Transmitter Simran Use as directed for continuous glucose monitoring change every 3 months . 1 each 3 divalproex (DEPAKOTE) 500 MG delayed release (DR) tablet Take 1 (one) tablet (500 mg total) by mouth 2 (two) times a day . hydrOXYzine (VISTARIL) 50 MG capsule Take 1 (one) capsule (50 mg total) by mouth 2 (two) times a day . lancets Misc 1 Lancet by Miscellaneous route 3 (three) times a day . 100 each 5 levETIRAcetam (KEPPRA) 1000 MG tablet Take 1 (one) tablet (1,000 mg total) by mouth 2 (two) times a day . 180 tablet 1 metFORMIN (GLUCOPHAGE) 1000 MG tablet Take 1 (one) tablet (1,000 mg total) by mouth 2 (two) times a day . metoprolol tartrate (LOPRESSOR) 25 MG tablet Take 1 (one) tablet (25 mg total) by mouth 2 (two) times a day . miscellaneous medical supply Misc 1 each by Miscellaneous route daily . 100 each 2 nortriptyline (PAMELOR) 25 MG capsule Take 1 (one) capsule (25 mg total) by mouth nightly . 90 capsule 1 omeprazole (PRILOSEC) 40 MG capsule Take 1 (one) capsule (40 mg total) by mouth 2 (two) times a day . Omnipod Insulin Refill Crtg ondansetron (ZOFRAN-ODT) 4 MG disintegrating tablet Dissolve 1 (one) tablet (4 mg total) on top of tongue every 8 (eight) hours as needed for nausea . 20 tablet 1 oxyCODONE-acetaminophen (PERCOCET) 5-325 mg per tablet Take 1 (one) tablet by mouth nightly as needed for pain (Days supply per fill: 30) Start: 12/24/23. 30 tablet 0 Shameka Castillo DPM documented in this encounter [facility] 01-16-2024 Note [facility] 01-15-2024 Note Formatting of this n ote might be different from the original. Problem: Actual or potential alteration in health Goal: Absence of healthcare acquired conditions Outcome: Partially Met Goal: Knowledge of Interdisciplinary Plan of Care Outcome: Partially Met Goal: Knowledge of Enviroment Outcome: Partially Met Problem: Pain Goal: Reduced pain sensation Outcome: Partially Met Goal: Control of acute pain to acceptable level Outcome: Partially Met Goal: Able to cope with pain Outcome: Partially Met Goal: Able to achieve maximum level of physical functioning Outcome: Partially Met Goal: Able to achieve maximum level of psychosocial functioning Outcome: Partially Met Problem: Falls, Risk of Goal: Absence of falls Outcome: Partially Met Goal: Absence of physical injury Outcome: Partially Met [facility] 01-15-2024 Miscellaneous Notes Problem: Actual or potential alteration in health Goal: Absence of healthcare acquired conditions Outcome: Partially Met Goal: Knowledge of Interdisciplinary Plan of Care Outcome: Partially Met Goal: Knowledge of Enviroment Outcome: Partially Met Problem: Pain Goal: Reduced pain sensation Outcome: Partially Met Goal: Control of acute pain to acceptable level Outcome: Partially Met Goal: Able to cope with pain Outcome: Partially Met Goal: Able to achieve maximum level of physical functioning Outcome: Partially Met Goal: Able to achieve maximum level of psychosocial functioning Outcome: Partially Met Problem: Falls, Risk of Goal: Absence of falls Outcome: Partially Met Goal: Absence of physical injury Outcome: Partially Met I performed a substantive part of the MDM during the patient's E/M visit. I personally made or approved the documented management plan and acknowledge its risk of complications Management/test interpretation discussed with midlevel provider. PHYSICAL THERAPY VISIT VARIANCE NOTE Attempted to see patient at this time, but unable secondary to: Patient Unavailable (comment) (currently BHAVNA for CAT scan). Will follow up as appropriate. Patient has an ICD that is MRI compatible but she does not follow up with anyone for her device check. We do not have anyone to send MRI cardiology order form. Problem: Actual or potential alteration in health Goal: Absence of healthcare acquired conditions Outcome: Partially Met Goal: Knowledge of Interdisciplinary Plan of Care Outcome: Partially Met Goal: Knowledge of Enviroment Outcome: Partially Met Problem: Pain Goal: Reduced pain sensation Outcome: Partially Met Goal: Control of acute pain to acceptable level Outcome: Partially Met Goal: Able to cope with pain Outcome: Partially Met Goal: Able to achieve maximum level of physical functioning Outcome: Partially Met Goal: Able to achieve maximum level of psychosocial functioning Outcome: Partially Met documented in this encounter [facility] 01-15-2024 Note [facility] 01-14-2024 Note [facility] 01-14-2024 Note [facility] 01-14-2024 Consult note Formatting of th is note is different from the original. Physical Therapy PHYSICAL THERAPY EVALUATION Skilled Therapy Needs After Discharge Anticipate Resolution of Current Assessment Limitations Including: Pain, Mechanical Barriers Are diet consultant Therapy Services Needed After Discharge: Yes Intensity of diet consultant Therapy: 2-3 days per week Anticipated Duration of diet consultant Therapy: Duration 10 - 30 days PT DME Recommendation: Wheeled Walker Rehab Potential: Excellent, For goals Outcomes Measures Prior Function - Basic Mobility Raw Score: 24 Points Prior Function - Basic Mobility % Impaired: 0% AM-PAC Basic Mobility Raw Score: 16 Points AM-PAC Basic Mobility % Impaired: 47.12% Physical Therapy Assessment History: The following factors influence the patient's participation in the PT plan of care: Environmental Factors: Steps to enter home The following co-morbidities (from this admission or prior) influence the patient's participation in this plan of care: Diabetic ulcer of left great toe, CKD, COPD Number of History elements affecting this patient's PT plan of care: 1 to 2 Examination of Body Systems: The patient presents with: Musculoskeletal impairments: Strength, Functional Endurance Neurologic Impairments: Balance Cardiopulmonary Impairments: Activity Tolerance. These impairments result in limitations of Gait, Functional Transfers, Safety Awareness, Activity Tolerance. These impairments result in restrictions of Household mobility. Number of Body Systems elements affecting this patient's PT plan of care: 3 or more. Clinical Presentation: The patient's clinical presentation for this PT evaluation is evolving with changing characteristics as evidenced by current PT documentation. Activity Tolerance Activity Tolerance: Tolerates 10 - 20 min activity with multiple rests Therapy Precautions Orthotic Devices: Yes Lower Extremity: Left ([place]iviera shoe on) Weight Bearing Status: X LLE: Partial Wt bearing (Heel WB) General Rehab Precautions: Fall risk Balance Assessment Sitting Balance - Static: Independent Sitting Balance - Dynamic: Independent Standing Balance - Static: Minimal assist Immigration Coordinator - Standing Static: BUE Standing Balance - Dynamic: Minimal assist, 2 person Immigration Coordinator - Standing Dynamic: same lunchroom aide used for static standing tasks Bed Mobility Supine to Sit: (NT- Patient was up in chair before and After PT eval) Transfers Sit to Stand: Contact guard assist Bed to Chair: Contact guard assist Immigration Coordinator: BUE (Patient uses cane, but reports that she does not get up out of bed much) Gait/Locomotion Gait Assistance: Minimal assist, 2 person assist Assistive Device: BUE (Patient uses) Distance: 15 Feet Pattern: L decreased step length, R decreased step length, over reliance on upper extremities Weight Bearing Status: able to maintain (with occasional cue) Additional Assessment Details Home Living Obtained Home Living and PLOF info from: Patient Lives With: Son, Other (Comment) (DIL) Type of Home: House Home Layout: Two level, Able to live on main level with bedroom/bathroom, Full bath on second level Steps to enter home: Yes Rails to enter home: None Number of stairs to enter home: 1 Bathroom Shower/Tub: Tub/shower unit Bathroom Equipment: Bedside commode, Shower chair, Hand-held showerhead Mobility Equipment: Cane, Wheelchair - manual Additional Objective Details - Home Living: (Patient uses cane, but reports that she does not get up out of bed much) Prior Level of Function Receives Help From: Family Level of Liberty - Transfers/Ambulation/Mobility: Independent with functional transfers, Independent with household ambulation Level of Liberty - ADLs: Needs assistance Level of Liberty - Homemaking: Independent Past Medical History: Diagnosis Date Anxiety Bipolar 1 disorder (HCC) Bipolar disorder (HCC) Chronic back pain Coronary artery disease Depression Diabetes mellitus (HCC) Hypertension MRSA (methicillin resistant Staphylococcus aureus) Pacemaker Seizures (HCC) Stroke (HCC) Past Surgical History: Procedure Laterality Date CHOLECYSTECTOMY FOOT SURGERY HYSTERECTOMY ORTHOPEDIC SURGERY left foot surgery PACEMAKER INSERTION For complete objective data, detailed plan of care and patient education refer to: PT Evaluation flowsheet, PT Evaluation and Treatment flowsheet, PT Treatment flowsheet, patient Plan of Care, Plan of Care progress note, and Patient Education. This note stands as the current Discharge Summary upon patient discharge from the hospital or completion of Physical Therapy Plan. [facility] 01-14-2024 Consult note Formatting of th is note is different from the original. Occupational Therapy OCCUPATIONAL THERAPY EVALUATION Skilled Therapy Needs After Discharge Anticipate Resolution of Current Assessment Limitations Including: Social Support, Mechanical Barriers, Pain Are OT Skilled Therapy Services Needed After Discharge: No OT DME Recommendation: To be determined at next level of care Rehab Potential: Fair, For goals Patient reports no increased pain upon end of evaluation, left with all immediate needs met, and call light within reach. White board was updated and RN was notified of patient's mobility status. Patient left upright in bedside chair upon OT exit. No chair alarm engaged due to fall risk score of 2 at time of session. Patient is somewhat self limiting and reports she is not super active at home. Outcomes Measures Prior Function Daily Activity Raw Score: 23 Prior Function Daily Activity % Impaired: 15.86% AM-PAC Daily Activity Raw Score: 16 AM-PAC Daily Activity % Impaired: 53.32% Occupational Therapy Assessment The patient's current functional participation deficits are functional mobility, meal preparation, home management, toileting, bathing, UE dressing, LE dressing, grooming. This reduced independence will limit their life roles of premorbid level individual. The patient's co morbidities do affect patient performance in the above activities and roles. The performance deficits are a result of musculoskeletal, neurological, cardiopulmonary, psychological impairment(s) in generalized debility, left, lower extremity including strength, balance, coordination, pain, respiratory capacity, acitvity tolerance, insight, safety, and knowledge deficit, pain intolerance, motivation. The patient's home setup is a nephrologist, family / caregiver support is a nephrologist for return to prior level of function. The patient's education level is a nephrologist, compliance is a nephrologist to return to prior level of function. During the assessment, minimal to moderate modification of task was required and multiple treatment options were identified in the plan of care. This consultation required expanded review of the medical and therapy history. Activity Tolerance Activity Tolerance: Tolerates less than 10 min activity, no significant change in vital signs Therapy Precautions Orthotic Devices: Yes Lower Extremity: Left ([place] Shoe) Weight Bearing Status: X LLE: Partial Wt bearing (Heel WB) General Rehab Precautions: Fall risk Cognition Overall Cognitive Status: Within Functional Limits Arousal/Alertness: Appropriate responses to stimuli Orientation Level: Oriented X4 Safety Judgment: Decreased awareness of need for assistance, Decreased awareness of need for safety Problem Solving: Assistance required to generate solutions, Assistance required to implement solutions, Assistance required to identify errors made ADL Feeding: Supervision Grooming: Contact guard assist Upper Body Bathing: Contact guard assist Lower Body Bathing: Minimal assist Upper Body Dressing: Contact guard assist Lower Body Dressing: Minimal assist Toileting: Contact guard assist, Increased time to complete, Use of adaptive equipment Functional Mobility: Contact guard assist, Additional time, Adaptive equipment Bed Mobility Rolling: Contact guard assist Supine to Sit: Contact guard assist Immigration Coordinator: bedrails Functional Transfers Sit to Stand: Contact guard assist Bed to Chair Transfers: Contact guard assist Stand Pivot Transfers: Contact guard assist Immigration Coordinator: (gait belt, shoe, sock) Additional Assessment Details Education provided on increasing activity at home vs. Wound healing. Patient reports she only gets up to use the bathroom, spends a lot of time on her tablet. Home Living Obtained Home Living and PLOF info from: Patient Lives With: Son, Other (Comment) (DIL) Type of Home: House Home Layout: Two level, Able to live on main level with bedroom/bathroom, Full bath on main level Steps to enter home: Yes Rails to enter home: None Number of stairs to enter home: 1 Bathroom Shower/Tub: Tub/shower unit Bathroom Equipment: Bedside commode, Shower chair, Hand-held showerhead Mobility Equipment: Cane, Wheelchair - manual Additional Objective Details - Home Living: Patient uses cane, but reports that she does not get up out of bed much Prior Level of Function Receives Help From: Family Level of Liberty - Transfers/Ambulation/Mobility: Independent with functional transfers Level of Liberty - ADLs: Needs assistance Level of Liberty - Homemaking: Independent Past Medical History: Diagnosis Date Anxiety Bipolar 1 disorder (HCC) Bipolar disorder (HCC) Chronic back pain Coronary artery disease Depression Diabetes mellitus (HCC) Hypertension MRSA (methicillin resistant Staphylococcus aureus) Pacemaker Seizures (HCC) Stroke (HCC) Past Surgical History: Procedure Laterality Date CHOLECYSTECTOMY FOOT SURGERY HYSTERECTOMY ORTHOPEDIC SURGERY left foot surgery PACEMAKER INSERTION For complete objective data, detailed plan of care and patient education refer to: OT Evaluation flowsheet, OT Evaluation and Treatment flowsheet, OT Treatment flowsheet, patient Plan of Care, Plan of Care progress note, and Patient Education. This note stands as the current Discharge Summary upon patient discharge from the hospital or completion of Occupational Therapy Plan of Care. [facility] 01-13-2024 Note Formatting of this n ote might be different from the original. I performed a substantive part of the MDM during the patient's E/M visit. I personally made or approved the documented management plan and acknowledge its risk of complications Management/test interpretation discussed with midlevel provider. [facility] Work Phone: 01-13-2024 Consult note Associated Order (s): IP CONSULT TO HOME HEALTH HUB 01/13/24 2:37 PM - Liaison received a Home Health [facility] consult for C needs. Patient's agency choice is no preference (would prefer not [facility]) Barriers to finding accepting [facility] agency: pt's home location (not many C agencies in area), insurance not widely accepted HHC agency: Accepted or Pending Name of agency: [facility]END[facility] Referrals sent to: (names of agencies) Declined: [facility] [place] [facility] [place] Please be aware [facility] agencies have up to 24hours to respond. Many [facility] agencies closed on weekends, may take until Thursday to receive responses. [facility] created for the following services: yes - SN/PT/OT Verify the demographics (residential address) [address] [facility] [address] What is the primary number to reach you? [phone] Who is your family physician/primary care physician? Stephany Pelayo PA-C [phone] Following physician will be: (list first name/last name) Do you have a caregiver and/or teachable caregiver (list relationship, name & phone #)? lives with family Estimated Discharge Date (KUNAL): 01/14 If discharge needs change, please reach out to [facility] Liaison assigned on treatment team as [facility] is not notified of additional consults to [facility] once team is following. Thank you. [facility] 01-13-2024 Consult note Associated Order (s): IP CONSULT TO CARE MANAGEMENT Care Management Consult Note Date: 01/13/2024 Time: 2:25 PM Patient Name: Addie Jean Baptiste Date of : 1975 Reason for Consult: Discharge Plan: Plan A: Home Health Care Services Plan B: Home Health Care Services Discharging Transportation Plan: Auto Discharge Plan Status: Met F2F with pt at bedside, discussed discharge needs. Pt lives with her son and [id number], they provide support. She states that she has all needed equipment in the home, including a hospital bed, wheelchair and electric scooter. She states that she is not very mobile at baseline, spends a lot of her time in bed in her room. Her family provides transportation, meals . She denies any difficulty getting her medications or getting to the doctor. Pt did express need for resources in the community. Referral made to [facility] and resources added to AVS. SDOH screening addressed. Pt would like to have home health at discharge, she states no preference of an agency but does not wish to have [facility]. Referral to HH Hub entered. Plan A: Pt will return home with her family, home health services to be arranged. Plan B: Will follow pt for any additional needs. Assessment and Background Information: Living Arrangements: Family members Support Systems: Family members Assistance Needed: n/a Type of Residence: Private residence Prior to Admission Home Care Services: No Current Home Equipment: (Electric scooter) [facility] 01-13-2024 Note Formatting of this n ote might be different from the original. PHYSICAL THERAPY VISIT VARIANCE NOTE Attempted to see patient at this time, but unable secondary to: Patient Unavailable (comment) (currently [facility] for CAT scan). Will follow up as appropriate. T [facility] 01-13-2024 Note Formatting of this n ote might be different from the original. Patient has an ICD that is MRI compatible but she does not follow up with anyone for her device check. We do not have anyone to send MRI cardiology order form. T [facility] 01-13-2024 Note Formatting of this n ote might be different from the original. Problem: Actual or potential alteration in health Goal: Absence of healthcare acquired conditions Outcome: Partially Met Goal: Knowledge of Interdisciplinary Plan of Care Outcome: Partially Met Goal: Knowledge of Enviroment Outcome: Partially Met Problem: Pain Goal: Reduced pain sensation Outcome: Partially Met Goal: Control of acute pain to acceptable level Outcome: Partially Met Goal: Able to cope with pain Outcome: Partially Met Goal: Able to achieve maximum level of physical functioning Outcome: Partially Met Goal: Able to achieve maximum level of psychosocial functioning Outcome: Partially Met [facility] 01-13-2024 [facility] 01-13-2024 Consult note Associated Order (s): IP CONSULT TO ENTEROSTOMAL THERAPY Consulted to see patient for her left great toe and abdominal wound. Patient sitting on edge of bed watching TV. Dr Joel Castillo in room as well. Applied medi-honey to her abdominal wound and covered with a Mepilex. Used betadine swab to her left great toe and covered with guaze/tape. Her left great toenail is completely off and her toe is red. Her abdominal wound measures 1cm x 1cm and has a white wound bed and gema wound is red. [facility] 01-13-2024 Consult note Associated Order (s): IP CONSULT TO PODIATRY Images from the original note were not included. [facility] ASSESSMENT AND PLAN: Diabetes with neuropathy left hallux ulceration Left foot cellulitis The patient was seen and evaluated and discussed findings with patient. Patient's left hallux distal tuft ulceration encompasses the entire distal one half of the toe. He does not involve proximal to the interphalangeal joint. There is increased redness warmth and drainage noted but is reportedly improved even overnight since her admission. I reviewed the patient's x-rays and clinical presentation today at this point no surgical invention at this time we will await the results of the MRI pending those results she may need amputation but at this point she will likely heal with aggressive wound care management. - OR Plans: none - ABX: PO Doxy on discharge - DSG: betadine gauze bandage - WBS: heel weight bearing with marian shoe - XR : reviewed. CT ordered, MRI unable to complete due to ICD Answered questions and rediscussed plan at length with the patient and family if present. Discussed plan with other teams' providers. We discussed with the patient the pathology, etiology, pathogenesis, current condition management plan and disposition. This was discussed at various times during the day with representatives from nursing, pharmacy, case management, social work, and therapies as needed. We discussed with the patient he etiology of problems listed in the Assessment and Plan section, as well as risk factors, natural course, prognosis, treatment options with associated risks and benefits. Importance of compliance with the treatment plan was emphasized. I explained test results to date, as well as additional diagnostic recommendations. I explained discharge plans, including the required post-hospitalization care, treatment, and services. All questions were answered and ample time was provided. 48 y.o. YEAR OLD female WAS ADMITTED TO [facility] [place] [facility] ON 01/12/2024 WITH Chief Complaint Patient presents with Toe Injury Wound Check I AM BEING ASKED TO SEE THIS PATIENT AT THE REQUEST OF DR. Todd Hennessy MD . The patient presents with an ulceration sub left hallux. The ulcer has been present for a few days. The patient denies nausea, fever, vomiting, chills or shortness of breath. PODIATRIC HISTORY AND PHYSICAL REVEALS: The patient is AOx3 and in no acute distress. VASCULAR: DP and PT pulses are 1/4 b/l. CFT <3sec. Pedal hair is absent. Skin temperature is warm to warm from proximal tibia to toes b/l. DERMATOLOGIC: Toenails 1-10 are within normal limits. Turgor and texture of skin is NEUROLOGICAL: Epicritic and gross sensation is intact. Protective and vibratory sensation is diminished. Sharp, dull, hot and cold , vibratory, and proprioception sensations are: diminished. Achilles and patellar deep tendon reflexes intact. ORTHO: No pain with palpation secondary to neuropathy. LABS: Results from last 7 days Lab Units 01/13/24 0538 01/12/24 1505 SODIUM mmol/L 138 140 POTASSIUM mmol/L 4.1 4.1 CHLORIDE mmol/L 105 104 BUN mg/dL 27* 24 CREATININE mg/dL 1.32* 1.06 GLUCOSE mg/dL 157* 109* CALCIUM mg/dL 8.4 9.0 Results from last 7 days Lab Units 01/13/24 0720 01/12/24 1505 WBC K/mcL 7.09 9.68 HGB g/dL 9.3* 11.7* HCT % 27.5* 34.6* PLT K/mcL 238 291 MONOS% % -- 4.9 EOSIN% % -- 6.5 Invalid input(s): LABALBU * Cannot find OR log * IMAGING: XR Foot Left 3+ Views (Standard) Result Date: 01/12/2024 EXAMINATION: XR FOOT LEFT 3+ VIEWS (STANDARD) 01/12/2024 3:26 pm HISTORY: ORDERING SYSTEM PROVIDED HISTORY: Circumferential sloughing of skin of first great toe, poorly controlled diabetic, concern for osteomyelitis, possible recent abscess that was drained at home, TECHNOLOGIST PROVIDED HISTORY: Illness/Other Reason for exam: Circumferential sloughing of skin of first great toe, poorly controlled diabetic, concern for osteomyelitis, possible recent abscess that was drained at home Cancer History: u Surgery, RadiationHistory: pacemaker Encounter Type: Initial Additional signs and symptoms: na ORDERING SYSTEM PROVIDED DIAGNOSIS CODES: COMPARISON: Left foot radiographs dated 01/09/2024. FINDINGS: Three views. No fractures. 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 Distal fibular ORIF, partially imaged. No aggressive osseous lesions or bony demineralization. Forefoot soft tissue swelling. Forefoot soft tissue swelling without an acute osseous abnormality. If there is high clinical concern for osteomyelitis, recommend MRI which is more sensitive. Workstation ID: [id number] PAST MEDICAL HISTORY: Past Medical History: Diagnosis Date Anxiety Bipolar 1 disorder (HCC) Bipolar disorder (HCC) Chronic back pain Coronary artery disease Depression Diabetes mellitus (HCC) Hypertension MRSA (methicillin resistant Staphylococcus aureus) Pacemaker Seizures (HCC) Stroke (HCC) PAST SURGICAL HISTORY: Past Surgical History: Procedure Laterality Date CHOLECYSTECTOMY FOOT SURGERY HYSTERECTOMY ORTHOPEDIC SURGERY left foot surgery PACEMAKER INSERTION FAMILY MEDICAL HISTORY: Family History Problem Relation Age of Onset Seizures Mother Diabetes Father Hypertension Father Diabetes type II Father SOCIAL HISTORY: Social History Tobacco Use Smoking status: Former Current packs/day: 1.00 Average packs/day: 1 pack/day for 18.1 years (18.1 ttl pk-yrs) Types: Cigarettes Start date: 09/30/2014 Passive exposure: Current Smokeless tobacco: Never Tobacco comments: Vaping 6 mg nicotine Vaping Use Vaping status: Every Day Substances: Nicotine, Flavoring Devices: Pre-filled or refillable cartridge Substance Use Topics Alcohol use: No Alcohol/week: 0.0 standard drinks of alcohol Drug use: Yes Types: Marijuana Comment: smoking as needed, last use thursday night DRUG/FOOD ALLERGIES: Iodides, Ketorolac, Tramadol, Codeine, Propoxyphene n-acetaminophen, Adhesive, Compazine [prochlorperazine], Ct: iodinated contrast- oral and iv dye, Fentanyl, Ibuprofen, Latex, Linezolid, Lorazepam, Nsaids (non-steroidal anti-inflammatory drug), Vancomycin, and Propoxyphene MEDICATIONS: Current Facility-Administered Medications Medication Dose Route Frequency Provider Last Rate Last Admin albuterol (PROVENTIL) 2.5 mg /3 mL (0.083 %) nebulizer solution 2.5 mg 2.5 mg Nebulization Q6H PRN Mk Leigh MD atorvastatin (LIPITOR) tablet 40 mg 40 mg Oral Nightly Mk Leigh MD 40 mg at 01/12/24 2218 busPIRone (BUSPAR) tablet 30 mg 30 mg Oral Q12H [facility] Mk Leigh MD 30 mg at 01/12/24 2218 chlorthalidone (HYGROTON) tablet 25 mg 25 mg Oral Daily Mk Leigh MD citalopram (CELEXA) tablet 20 mg 20 mg Oral Daily Mk Leigh MD divalproex (DEPAKOTE) delayed release (DR) tablet 500 mg 500 mg Oral Q12H [facility] Mk Leigh MD hydrOXYzine (ATARAX) tablet 50 mg 50 mg Oral TID PRN Mk Leigh MD melatonin Tab 5 mg 5 mg Oral Nightly PRN Estrella Lainez PA-C naloxone (NARCAN) injection 0.1 mg 0.1 mg Intravenous PRN Estrella Lainez PA-C And naloxone (NARCAN) injection 0.4 mg 0.4 mg Intravenous PRN Estrella Lainez PA-C ondansetron (ZOFRAN-ODT) disintegrating tablet 4 mg 4 mg Oral Q6H PRN Estrella Lainez PA-C Or ondansetron (ZOFRAN) injection 4 mg 4 mg Intravenous Q6H PRN Estrella Lainez PA-C oxyCODONE-acetaminophen (PERCOCET) 5-325 mg per tablet 1 tablet 1 tablet Oral Q6H PRN Estrella Lainez PA-C piperacillin-tazobactam (ZOSYN) IVPB 3.375 g (premix) 3.375 g Intravenous Q8H Estrella Lainez PA-C 12.5 mL/hr at 01/13/24 0450 3.375 g at 01/13/24 0450 pregabalin (LYRICA) capsule 150 mg 150 mg Oral Nightly Mk Leigh MD 150 mg at 01/12/24 2218 QUEtiapine (SEROQUEL) tablet 800 mg 800 mg Oral Nightly Mk Leigh MD 800 mg at 01/12/24 2218 senna (SENOKOT) tablet 8.6 mg 1 tablet Oral BID PRN Estrella Lainez PA-C sodium chloride (PF) (NS) flush 5 mL 5 mL Intravenous PRN Estrella Lainez PA-C And sodium chloride (PF) (NS) flush 5 mL 5 mL Intravenous Q8H SAMEER Estrella Lainez PA-C And sodium chloride 0.9% (NS) 0-150 mL/hr Intravenous PRN Estrella Lainez PA-C sodium chloride 0.9% (NS) 100 mL/hr Intravenous Continuous Matheus Chavira PA-C 100 mL/hr at 01/12/24 1841 100 mL/hr at 01/12/24 1841 subcutaneous insulin pump Misc Miscellaneous Continuous Mk Leigh MD 2 Units/hr at 01/12/24 2215 tiZANidine (ZANAFLEX) tablet 8 mg 8 mg Oral Nightly Mk Leigh MD 8 mg at 01/12/248 traZODone (DESYREL) tablet 50 mg 50 mg Oral Nightly PRN Estrella Lainez PA-C Medications Prior to Admission Medication Sig Dispense Refill Last Dose albuterol (PROVENTIL) 2.5 mg /3 mL (0.083 %) nebulizer solution Take 3 mL (2.5 mg total) by nebulization every 6 (six) hours as needed for wheezing or shortness of breath . 75 mL 3 albuterol 90 mcg/actuation inhaler Inhale 1 (one) puff every 4 to 6 hours as needed for shortness of breath or wheezing . 18 g 3 atorvastatin (LIPITOR) 40 MG tablet Take 1 (one) tablet (40 mg total) by mouth nightly . 90 tablet 0 ergocalciferol (Vitamin D2) 1,250 mcg (50,000 unit) capsule Take 1 (one) capsule (50,000 Units total) by mouth once a week . 12 capsule 1 glucagon (Gvoke HypoPen 2-Pack) 1 mg/0.2 mL AtIn Inject 0.2 mL (1 mg total) under the skin as needed . 2 mL 1 hydrOXYzine (ATARAX) 25 MG tablet Take 1 (one) tablet (25 mg total) by mouth daily . insulin lispro (AdmeLOG,HumaLOG) 100 unit/mL injection Inject up to 150 units once daily via pump . 50 mL 5 lamoTRIgine (LAMICTAL) 25 MG tablet Take 1 tab daily for 2 weeks and then twice a day thereafter . 30 tablet 2 levothyroxine (SYNTHROID, LEVOTHROID) 75 MCG tablet Take 1 (one) tablet (75 mcg total) by mouth once daily . 90 tablet 0 lidocaine (LMX) 4 % cream Apply topically 3 (three) times a day . 90 g 3 lisinopriL (PRINIVIL,ZESTRIL) 30 MG tablet Take 1 (one) tablet (30 mg total) by mouth daily . 90 tablet 1 metoprolol succinate (TOPROL-XL) 50 MG 24 hr tablet Take 1 (one) tablet (50 mg total) by mouth daily . 30 tablet 1 pantoprazole (PROTONIX) 40 MG tablet Take 1 (one) tablet (40 mg total) by mouth daily . 90 tablet 0 polyethylene glycol (GLYCOLAX) 17 gram/dose powder Take 17 (seventeen) g by mouth daily as needed (constipation) . 238 g 1 QUEtiapine (SEROQUEL) 400 MG tablet Take 2 (two) tablets (800 mg total) by mouth nightly . 60 tablet 2 timolol (TIMOPTIC) 0.5 % ophthalmic solution Administer 1 (one) drop into the left eye daily . traZODone (DESYREL) 50 MG tablet Take 1 (one) tablet (50 mg total) by mouth nightly as needed . 90 tablet 0 alcohol swabs PadM Apply 1 (one) Swab. topically 5 (five) times a day Clean area before administering insulin. . 150 each 5 blood sugar diagnostic (glucose blood) strips by Miscellaneous route 3 (three) times a day As a backup to CGM to test blood sugar. One Touch Verio . 100 strip 5 busPIRone (BUSPAR) 30 MG tablet Take 1 (one) tablet (30 mg total) by mouth 2 (two) times a day . chlorthalidone (HYGROTON) 25 MG tablet Take 1 (one) tablet (25 mg total) by mouth daily . 90 tablet 1 citalopram (CELEXA) 20 MG tablet Take 1 (one) tablet (20 mg total) by mouth daily . 30 tablet 2 cyanocobalamin (B-12) 1000 MCG tablet Take 1 (one) tablet (1,000 mcg total) by mouth daily Reasons: [facility]. 90 tablet 1 Dexcom G6 Vibrator Operator Misc Use as directed for continuous glucose monitoring . 1 each 0 Dexcom G6 Sensor Simran Use as directed for continuous glucose monitoring change every 10 days . 3 each 11 Dexcom G6 Transmitter Simran Use as directed for continuous glucose monitoring change every 3 months . 1 each 3 divalproex (DEPAKOTE) 500 MG delayed release (DR) tablet Take 1 (one) tablet (500 mg total) by mouth 2 (two) times a day . hydrOXYzine (VISTARIL) 50 MG capsule Take 1 (one) capsule (50 mg total) by mouth 2 (two) times a day . lancets Misc 1 Lancet by Miscellaneous route 3 (three) times a day . 100 each 5 levETIRAcetam (KEPPRA) 1000 MG tablet Take 1 (one) tablet (1,000 mg total) by mouth 2 (two) times a day . 180 tablet 1 metFORMIN (GLUCOPHAGE) 1000 MG tablet Take 1 (one) tablet (1,000 mg total) by mouth 2 (two) times a day . metoprolol tartrate (LOPRESSOR) 25 MG tablet Take 1 (one) tablet (25 mg total) by mouth 2 (two) times a day . miscellaneous medical supply Misc 1 each by Miscellaneous route daily . 100 each 2 nortriptyline (PAMELOR) 25 MG capsule Take 1 (one) capsule (25 mg total) by mouth nightly . 90 capsule 1 omeprazole (PRILOSEC) 40 MG capsule Take 1 (one) capsule (40 mg total) by mouth 2 (two) times a day . Omnipod Insulin Refill Crtg ondansetron (ZOFRAN-ODT) 4 MG disintegrating tablet Dissolve 1 (one) tablet (4 mg total) on top of tongue every 8 (eight) hours as needed for nausea . 20 tablet 1 oxyCODONE-acetaminophen (PERCOCET) 5-325 mg per tablet Take 1 (one) tablet by mouth nightly as needed for pain (Days supply per fill: 30) Start: 12/24/23. 30 tablet 0 Shameka Castillo DPM [facility] 01-12-2024 History and physical note [facility] -- [facility] Patient Name: Addie Jean Baptiste : 1975 MR #: [id number] Admit Date: 01/12/2024 Physicians: Stephany Pelayo PA-C (Family); No ref. provider found (Referring) Addie Jean Baptiste is a 48 y.o. female patient of Stephany Pelayo PA-C with history of T2DM, HTN, bipolar disorder, and chronic back pain presented to [facility] on 01/12/2024 with left toe wound. Left diabetic toe ulcer P/w 4 day history of left toe ulcer with purulent drainage Afebrile on arrival, HR 96, RR 16, BP 165/113, no hypoxia Initial CBC without leukocytosis (WBC 9.68).BMP unremarkable. CRP 8.2, ESR 40 Xray L foot: Forefoot soft tissue swelling without an acute osseous abnormality. Received cefepime/dozy in the ED Cont abx coverage w zosyn Consult podiatry, appreciate recommendations MRI pending to r/o osteomyelitis Pain control with PRN tylenol and oxycodone Narcan order set, bowel regimen, pulse ox Daily labs T2DM, with current long-term use of insulin Diabetic peripheral neuropathy Last A1c 9.2% in 09/2023 Home insulin regimen: insulin pump Continue with lantus and SSI Accuchecks w qAC/HS SSI. Hypoglycemic protocol. Seizure disorder Continue home keppra Obesity Body mass index is 45.73 kg/m . Discussed dietary and lifestyle modifications Residence prior to admission: house or apartment Was patient transferred from outlying hospital or ED no Quality Measures DVT Prophylaxis: SCDs and ambulation only Chow Catheter: absent Medication Reconciliation: Verified Admitted with these risk variables:None. Please see assessment and plan for further details. Estimated Date of Discharge greater than 2 midnights Code Status Full Code; code status verified on 01/12/2024 with patient (capacity intact) Chief Complaint Left toe wound History of Present Illness Addie Jean Baptiste is a 48 y.o. female patient of Stephany Pelayo PA-C with history of T2DM, HTN, bipolar disorder, and chronic back pain presented to [facility] on 01/12/2024 with left toe wound. Pt states that Thursday she noticed an issue with her left great toe. Since then, the pain has gotten progressively worse. No fevers or chills. She has had issues with diabetic wounds previously and follows with Dr. Castillo. She tried to get in but his schedule was full so she went to her PCP today who referred her to the ED for further evaluation. Pt has not taken any antibiotics at this point. Otherwise denies any fever, chills, chest pain, SOB, palpitations, abdominal pain, N/V, diarrhea, constipation, dizziness, headache, or syncope. Past Medical History Past Medical History: Diagnosis Date Anxiety Bipolar 1 disorder (HCC) Bipolar disorder (HCC) Chronic back pain Coronary artery disease Depression Diabetes mellitus (HCC) Hypertension MRSA (methicillin resistant Staphylococcus aureus) Pacemaker Seizures (HCC) Stroke (HCC) Past Surgical History Past Surgical History: Procedure Laterality Date CHOLECYSTECTOMY FOOT SURGERY HYSTERECTOMY ORTHOPEDIC SURGERY left foot surgery PACEMAKER INSERTION Family History Family History Problem Relation Age of Onset Seizures Mother Diabetes Father Hypertension Father Diabetes type II Father Social History Social History Tobacco Use Smoking Status Former Current packs/day: 1.00 Average packs/day: 1 pack/day for 18.1 years (18.1 ttl pk-yrs) Types: Cigarettes Start date: 09/30/2014 Passive exposure: Current Smokeless Tobacco Never Tobacco Comments Vaping 6 mg nicotine Social History Substance and Sexual Activity Alcohol Use No Alcohol/week: 0.0 standard drinks of alcohol Social History Substance and Sexual Activity Drug Use Yes Types: Marijuana Comment: smoking as needed, last use thursday night Allergy Information I have reviewed the patient's allergies. Iodides, Ketorolac, Tramadol, Codeine, Propoxyphene n-acetaminophen, Adhesive, Compazine [prochlorperazine], Ct: iodinated contrast- oral and iv dye, Fentanyl, Ibuprofen, Latex, Linezolid, Lorazepam, Nsaids (non-steroidal anti-inflammatory drug), Vancomycin, and Propoxyphene Home Medications Home medications were reviewed. Review Of Systems All relevant systems have been reviewed and are negative except as noted in HPI or below Physical Examination BP (!) 165/113 (BP Location: Right arm, Patient Position: Sitting) Pulse 99 Temp 97.7 F (36.5 C) (Oral) Resp 16 Ht 5' 2 Wt 113.4 kg (250 lb) SpO2 99% BMI 45.73 kg/m General Appearance: alert; chronically ill appearing; in no acute distress HEENT: Head- normocephalic; Eyes- EOMI, sclera anicteric; Throat- mucous membranes moist Cardiovascular: regular rate and rhythm; normal S1, S2; no murmurs, rubs, clicks or gallops; peripheral edema absent Respiratory: lungs clear to auscultation; without wheezes, rales or rhonchi; on room air Abdomen: soft, non-tender, non-distended Neurological: oriented x 3; normal speech; no focal findings or movement disorder noted Musculoskeletal: no significant deformity or tenderness to palpation Skin: Small ulceration of the left great toe. Otherwise normal coloration Psych: normal mood and affect Associated attestation - Todd Hennessy MD - 01/12/2024 6:33 PM EDT HMS NOTE ADDENDUM I saw and examined the patient independently of the [facility] . Labs, medications, imaging and other studies were reviewed. I agree with history, physical examination findings, medical decision making and the assessment/plan with additions as noted in my documentation below. HPI This is a 45-year-old female patient was past medical history mentioned in PA's note. Physical Examination General Appearance: alert; acutely ill appearing; in no acute distress HEENT: Head- normocephalic; Eyes- EOMI, sclera anicteric; Ears- hearing intact; Nose- no nasal discharge; Throat- mucous membranes moist Cardiovascular: regular rate and rhythm; normal S1, S2; no murmurs, rubs, clicks or gallops; no peripheral edema Respiratory: lungs clear to auscultation; without wheezes, rales or rhonchi; on room air Abdomen: soft, non-tender, non-distended; positive bowel sounds Neurological: oriented x 3; normal speech; no focal findings or movement disorder noted Musculoskeletal: no significant deformity or tenderness to palpation Skin: normal coloration; has small left great toe ulcer psych: normal mood and affect Assessment/Plan Left great toe ulcer Patient presented with 4 days history of ulcer on her left great toe she has no fever or chills. I did not see any drainage but there was history of drainage. X-ray of left foot reported forefoot soft tissue swelling without acute osseous abnormality. Patient had antibiotics in the ED. Podiatry consulted. Continue Zosyn for now, doubts she needs antibiotic. Diabetes mellitus type 2, diabetic peripheral neuropathy Seizure disorder Obesity [facility] 01-12-2024 History and physical note [facility] -- [facility] Patient Name: Addie Jean Baptiste : 1975 MR #: [id number] Admit Date: 01/12/2024 Physicians: Stephany Pelayo PA-C (Family); No ref. provider found (Referring) Addie Jean Baptiste is a 48 y.o. female patient of Stephany Pelayo PA-C with history of T2DM, HTN, bipolar disorder, and chronic back pain presented to [facility] on 01/12/2024 with left toe wound. Left diabetic toe ulcer P/w 4 day history of left toe ulcer with purulent drainage Afebrile on arrival, HR 96, RR 16, BP 165/113, no hypoxia Initial CBC without leukocytosis (WBC 9.68).BMP unremarkable. CRP 8.2, ESR 40 Xray L foot: Forefoot soft tissue swelling without an acute osseous abnormality. Received cefepime/dozy in the ED Cont abx coverage w zosyn Consult podiatry, appreciate recommendations MRI pending to r/o osteomyelitis Pain control with PRN tylenol and oxycodone Narcan order set, bowel regimen, pulse ox Daily labs T2DM, with current long-term use of insulin Diabetic peripheral neuropathy Last A1c 9.2% in 09/2023 Home insulin regimen: insulin pump Continue with lantus and SSI Accuchecks w qAC/HS SSI. Hypoglycemic protocol. Seizure disorder Continue home keppra Obesity Body mass index is 45.73 kg/m . Discussed dietary and lifestyle modifications Residence prior to admission: house or apartment Was patient transferred from outlying hospital or ED no Quality Measures DVT Prophylaxis: SCDs and ambulation only Chow Catheter: absent Medication Reconciliation: Verified Admitted with these risk variables:None. Please see assessment and plan for further details. Estimated Date of Discharge greater than 2 midnights Code Status Full Code; code status verified on 01/12/2024 with patient (capacity intact) Chief Complaint Left toe wound History of Present Illness Addie Jean Baptiste is a 48 y.o. female patient of Stephany Pelayo PA-C with history of T2DM, HTN, bipolar disorder, and chronic back pain presented to [facility] on 01/12/2024 with left toe wound. Pt states that Thursday she noticed an issue with her left great toe. Since then, the pain has gotten progressively worse. No fevers or chills. She has had issues with diabetic wounds previously and follows with Dr. Castillo. She tried to get in but his schedule was full so she went to her PCP today who referred her to the ED for further evaluation. Pt has not taken any antibiotics at this point. Otherwise denies any fever, chills, chest pain, SOB, palpitations, abdominal pain, N/V, diarrhea, constipation, dizziness, headache, or syncope. Past Medical History Past Medical History: Diagnosis Date Anxiety Bipolar 1 disorder (HCC) Bipolar disorder (HCC) Chronic back pain Coronary artery disease Depression Diabetes mellitus (HCC) Hypertension MRSA (methicillin resistant Staphylococcus aureus) Pacemaker Seizures (HCC) Stroke (HCC) Past Surgical History Past Surgical History: Procedure Laterality Date CHOLECYSTECTOMY FOOT SURGERY HYSTERECTOMY ORTHOPEDIC SURGERY left foot surgery PACEMAKER INSERTION Family History Family History Problem Relation Age of Onset Seizures Mother Diabetes Father Hypertension Father Diabetes type II Father Social History Social History Tobacco Use Smoking Status Former Current packs/day: 1.00 Average packs/day: 1 pack/day for 18.1 years (18.1 ttl pk-yrs) Types: Cigarettes Start date: 09/30/2014 Passive exposure: Current Smokeless Tobacco Never Tobacco Comments Vaping 6 mg nicotine Social History Substance and Sexual Activity Alcohol Use No Alcohol/week: 0.0 standard drinks of alcohol Social History Substance and Sexual Activity Drug Use Yes Types: Marijuana Comment: smoking as needed, last use thursday night Allergy Information I have reviewed the patient's allergies. Iodides, Ketorolac, Tramadol, Codeine, Propoxyphene n-acetaminophen, Adhesive, Compazine [prochlorperazine], Ct: iodinated contrast- oral and iv dye, Fentanyl, Ibuprofen, Latex, Linezolid, Lorazepam, Nsaids (non-steroidal anti-inflammatory drug), Vancomycin, and Propoxyphene Home Medications Home medications were reviewed. Review Of Systems All relevant systems have been reviewed and are negative except as noted in HPI or below Physical Examination BP (!) 165/113 (BP Location: Right arm, Patient Position: Sitting) Pulse 99 Temp 97.7 F (36.5 C) (Oral) Resp 16 Ht 5' 2 Wt 113.4 kg (250 lb) SpO2 99% BMI 45.73 kg/m General Appearance: alert; chronically ill appearing; in no acute distress HEENT: Head- normocephalic; Eyes- EOMI, sclera anicteric; Throat- mucous membranes moist Cardiovascular: regular rate and rhythm; normal S1, S2; no murmurs, rubs, clicks or gallops; peripheral edema absent Respiratory: lungs clear to auscultation; without wheezes, rales or rhonchi; on room air Abdomen: soft, non-tender, non-distended Neurological: oriented x 3; normal speech; no focal findings or movement disorder noted Musculoskeletal: no significant deformity or tenderness to palpation Skin: Small ulceration of the left great toe. Otherwise normal coloration Psych: normal mood and affect Associated attestation - Todd Hennessy MD - 01/12/2024 6:33 PM EDT [facility] NOTE ADDENDUM I saw and examined the patient independently of the [facility] . Labs, medications, imaging and other studies were reviewed. I agree with history, physical examination findings, medical decision making and the assessment/plan with additions as noted in my documentation below. HPI This is a 45-year-old female patient was past medical history mentioned in PA's note. Physical Examination General Appearance: alert; acutely ill appearing; in no acute distress HEENT: Head- normocephalic; Eyes- EOMI, sclera anicteric; Ears- hearing intact; Nose- no nasal discharge; Throat- mucous membranes moist Cardiovascular: regular rate and rhythm; normal S1, S2; no murmurs, rubs, clicks or gallops; no peripheral edema Respiratory: lungs clear to auscultation; without wheezes, rales or rhonchi; on room air Abdomen: soft, non-tender, non-distended; positive bowel sounds Neurological: oriented x 3; normal speech; no focal findings or movement disorder noted Musculoskeletal: no significant deformity or tenderness to palpation Skin: normal coloration; has small left great toe ulcer psych: normal mood and affect Assessment/Plan Left great toe ulcer Patient presented with 4 days history of ulcer on her left great toe she has no fever or chills. I did not see any drainage but there was history of drainage. X-ray of left foot reported forefoot soft tissue swelling without acute osseous abnormality. Patient had antibiotics in the ED. Podiatry consulted. Continue Zosyn for now, doubts she needs antibiotic. Diabetes mellitus type 2, diabetic peripheral neuropathy Seizure disorder Obesity documented in this encounter [facility] 01-12-2024 Emergency department Note Hourly rounding completed. Patient updated on plan on care. Comfort measures offered, patient given water and a warm blanket. No other needs at this time. [facility] 01-12-2024 Emergency department Note Hourly rounding completed. Patient updated on plan on care. Comfort measures offered, patient given water and a warm blanket. No other needs at this time. ED PROVIDER NOTE [facility] EMERGENCY DEPARTMENT NAME: Addie Organ AGE: 48 y.o. : 1975 VISIT DATE: 01/12/2024 CSN: [id number] PCP: Stephany Pelayo PA-C Clinical Impression: 1. Diabetic ulcer of toe of left foot associated with type 2 diabetes mellitus, limited to breakdown of skin (HCC) ED Disposition ED Disposition Hospitalize Condition -- Comment Phone call required?: No Follow-up Information Follow-up information has not been specified. Contact information for after-discharge care Follow-up information has not been specified. Medical Decision Making Considered cellulitis, fractures, dislocation, osteomyelitis, compartment syndrome or neurovascular compromise, lymphangitis, thrombophlebitis, superficial thrombus, DVT, among others. WBC WNL. ESR elevated at 40 but CRP WNL. X-ray does not show any obvious evidence of osteomyelitis but I discussed this case with podiatry Dr. Olivia Castillo who recommended bringing patient in for IV antibiotics, fluids and MRI. I discussed this case with [facility] and they are willing to admit patient. Patient reports allergy to linezolid as well as vancomycin and not willing to try them again and so I discussed antibiotic coverage with the pharmacist, Yolie, who recommended doxycycline for MRSA coverage and cefepime for other gram-negative's/anaerobes. Also I am involving Sheng Anthony for tailoring of these antibiotics. Patient made aware of plan of care and is okay with hospitalization at this time, no further questions at this time. Chief Complaint Patient presents with Toe Injury Wound Check Is a 48-year-old female PMH poorly controlled DM2, HTN, bipolar 1 presenting to the ED for evaluation of toe injury, wound check. She states that this toe that his brother has been given her issues for years now. She states that she has had bone infections in the past and has required IV antibiotics and fluids in the hospital. She states that she has seen Dr. Romeo Castillo please issues in the past. She states that on Thursday, she started experiencing pain to her left great toe and started inspecting and manipulating the toenail when she tried to do so, she states that the toenail ripped off and there was a large amount of pus that drained from underneath the toenail. She states that all of the skin around her big toe also ripped off when she was inspecting her toenail. Denies any fevers or chills at home but states that she has been nauseous over the past 3 days. Denies any intolerance to oral intake. States that she is on a insulin pump and she goes through about 200 units every 2 to 3 days. Denies any trauma or injury that precipitated this pain. History provided by: Patient healthcare interpreter used: No Wound Check Past Medical History: Diagnosis Date Anxiety Bipolar 1 disorder (HCC) Bipolar disorder (HCC) Chronic back pain Coronary artery disease Depression Diabetes mellitus (HCC) Hypertension MRSA (methicillin resistant Staphylococcus aureus) Pacemaker Seizures (HCC) Stroke (HCC) Past Surgical History: Procedure Laterality Date CHOLECYSTECTOMY FOOT SURGERY HYSTERECTOMY ORTHOPEDIC SURGERY left foot surgery PACEMAKER INSERTION Family History Problem Relation Age of Onset Seizures Mother Diabetes Father Hypertension Father Diabetes type II Father Social History Socioeconomic History Marital status: Tobacco Use Smoking status: Former Current packs/day: 1.00 Average packs/day: 1 pack/day for 18.1 years (18.1 ttl pk-yrs) Types: Cigarettes Start date: 09/30/2014 Passive exposure: Current Smokeless tobacco: Never Tobacco comments: Vaping 6 mg nicotine Vaping Use Vaping status: Every Day Substances: Nicotine, Flavoring Devices: Pre-filled or refillable cartridge Substance and Sexual Activity Alcohol use: No Alcohol/week: 0.0 standard drinks of alcohol Drug use: Yes Types: Marijuana Comment: smoking as needed, last use thursday night Social Determinants of Health Financial Resource Strain: Medium Risk (05/11/2023) Overall Financial Resource Strain (CARDIA) Difficulty of Paying Living Expenses: Somewhat hard Food Insecurity: Food Insecurity Present (05/11/2023) Hunger Vital Sign Worried About Running Out of Food in the Last Year: Sometimes true Ran Out of Food in the Last Year: Sometimes true Transportation Needs: No Transportation Needs (05/11/2023) PRAPARE - Transportation Lack of Transportation (Medical): No Lack of Transportation (Non-Medical): No Housing Stability: High Risk (05/11/2023) Housing Stability Vital Sign Unable to Pay for Housing in the Last Year: Yes Unstable Housing in the Last Year: Yes Previous Medications Medication Sig albuterol (PROVENTIL) 2.5 mg /3 mL (0.083 %) nebulizer solution Take 3 mL (2.5 mg total) by nebulization every 6 (six) hours as needed for wheezing or shortness of breath . albuterol 90 mcg/actuation inhaler Inhale 1 (one) puff every 4 to 6 hours as needed for shortness of breath or wheezing . alcohol swabs PadM Apply 1 (one) Swab. topically 5 (five) times a day Clean area before administering insulin. . atorvastatin (LIPITOR) 40 MG tablet Take 1 (one) tablet (40 mg total) by mouth nightly . blood sugar diagnostic (glucose blood) strips by Miscellaneous route 3 (three) times a day As a backup to CGM to test blood sugar. One Touch Verio . busPIRone (BUSPAR) 30 MG tablet Take 1 (one) tablet (30 mg total) by mouth 2 (two) times a day . chlorthalidone (HYGROTON) 25 MG tablet Take 1 (one) tablet (25 mg total) by mouth daily . citalopram (CELEXA) 20 MG tablet Take 1 (one) tablet (20 mg total) by mouth daily . cyanocobalamin (B-12) 1000 MCG tablet Take 1 (one) tablet (1,000 mcg total) by mouth daily Reasons: [facility]. Dexcom G6 Vibrator Operator Misc Use as directed for continuous glucose monitoring . Dexcom G6 Sensor Simran Use as directed for continuous glucose monitoring change every 10 days . Dexcom G6 Transmitter Simran Use as directed for continuous glucose monitoring change every 3 months . divalproex (DEPAKOTE) 500 MG delayed release (DR) tablet Take 1 (one) tablet (500 mg total) by mouth 2 (two) times a day . ergocalciferol (Vitamin D2) 1,250 mcg (50,000 unit) capsule Take 1 (one) capsule (50,000 Units total) by mouth once a week . glucagon (Gvoke HypoPen 2-Pack) 1 mg/0.2 mL AtIn Inject 0.2 mL (1 mg total) under the skin as needed . hydrOXYzine (ATARAX) 25 MG tablet Take 1 (one) tablet (25 mg total) by mouth daily . hydrOXYzine (VISTARIL) 50 MG capsule Take 1 (one) capsule (50 mg total) by mouth 2 (two) times a day . insulin lispro (AdmeLOG,HumaLOG) 100 unit/mL injection Inject up to 150 units once daily via pump . lamoTRIgine (LAMICTAL) 25 MG tablet Take 1 tab daily for 2 weeks and then twice a day thereafter . lancets Misc 1 Lancet by Miscellaneous route 3 (three) times a day . levETIRAcetam (KEPPRA) 1000 MG tablet Take 1 (one) tablet (1,000 mg total) by mouth 2 (two) times a day . levothyroxine (SYNTHROID, LEVOTHROID) 75 MCG tablet Take 1 (one) tablet (75 mcg total) by mouth once daily . lidocaine (LMX) 4 % cream Apply topically 3 (three) times a day . lisinopriL (PRINIVIL,ZESTRIL) 30 MG tablet Take 1 (one) tablet (30 mg total) by mouth daily . metFORMIN (GLUCOPHAGE) 1000 MG tablet Take 1 (one) tablet (1,000 mg total) by mouth 2 (two) times a day . metoprolol succinate (TOPROL-XL) 50 MG 24 hr tablet Take 1 (one) tablet (50 mg total) by mouth daily . metoprolol tartrate (LOPRESSOR) 25 MG tablet Take 1 (one) tablet (25 mg total) by mouth 2 (two) times a day . miscellaneous medical supply Misc 1 each by Miscellaneous route daily . nortriptyline (PAMELOR) 25 MG capsule Take 1 (one) capsule (25 mg total) by mouth nightly . omeprazole (PRILOSEC) 40 MG capsule Take 1 (one) capsule (40 mg total) by mouth 2 (two) times a day . Omnipod Insulin Refill Crtg ondansetron (ZOFRAN-ODT) 4 MG disintegrating tablet Dissolve 1 (one) tablet (4 mg total) on top of tongue every 8 (eight) hours as needed for nausea . oxyCODONE-acetaminophen (PERCOCET) 5-325 mg per tablet Take 1 (one) tablet by mouth nightly as needed for pain (Days supply per fill: 30) Start: 12/24/23. pantoprazole (PROTONIX) 40 MG tablet Take 1 (one) tablet (40 mg total) by mouth daily . polyethylene glycol (GLYCOLAX) 17 gram/dose powder Take 17 (seventeen) g by mouth daily as needed (constipation) . pregabalin (LYRICA) 75 MG capsule Take 1 (one) capsule (75 mg total) by mouth 2 (two) times a day (Days supply per fill: 30) . QUEtiapine (SEROQUEL) 400 MG tablet Take 2 (two) tablets (800 mg total) by mouth nightly . timolol (TIMOPTIC) 0.5 % ophthalmic solution Administer 1 (one) drop into the left eye daily . tiZANidine (ZANAFLEX) 4 MG tablet Take 2 tabs p.o. nightly Start: 12/12/23. traZODone (DESYREL) 50 MG tablet Take 1 (one) tablet (50 mg total) by mouth nightly as needed . [DISCONTINUED] amoxicillin (AMOXIL) 500 MG capsule Take 1 (one) capsule (500 mg total) by mouth 3 (three) times a day . (Patient not taking: Reported on 01/12/2024 .) Allergies Allergen Reactions Iodides Other (See Comments) Renal compromise Ketorolac Hives, Other (See Comments), Rash and GI Intolerance Messes with seizures Unsure of reaction Tramadol Hives, Rash, Other (See Comments) and GI Intolerance Codeine Other reaction(s): Aggressive Behavior Propoxyphene N-Acetaminophen GI Intolerance Adhesive Itching Compazine [Prochlorperazine] Other (See Comments) She reports Compazine made her feel anxious and grumpy Ct: Iodinated Contrast- Oral And Iv Dye Other (See Comments) Shuts my kidneys down Fentanyl Ibuprofen Other (See Comments) shuts kidney down Latex Dermatitis Linezolid Nausea And Vomiting and GI Intolerance Lorazepam Other (See Comments) Nsaids (Non-Steroidal Anti-Inflammatory Drug) shuts my kidney's down Vancomycin Other (See Comments) Shuts kidney down Propoxyphene GI Intolerance Review of Systems Positives and pertinent negatives as per HPI. All other systems were reviewed and are negative. Patient Vitals for the past 24 hrs: BP Temp Temp src Pulse Resp SpO2 Height Weight 01/12/24 1621 -- -- -- -- 16 -- -- -- 01/12/24 1436 (!) 165/113 97.7 F (36.5 C) Oral 99 16 99 % 5' 2 113.4 kg (250 lb) Physical Exam Vitals and nursing note reviewed. Constitutional: Appearance: Normal appearance. HENT: Head: Normocephalic and atraumatic. Eyes: Pupils: Pupils are equal, round, and reactive to light. Cardiovascular: Rate and Rhythm: Normal rate and regular rhythm. Pulses: Normal pulses. Heart sounds: Normal heart sounds. Musculoskeletal: General: Normal range of motion. Cervical back: Normal range of motion. Pulmonary: Effort: Pulmonary effort is normal. Breath sounds: Normal breath sounds. Abdominal: Palpations: Abdomen is soft. Skin: General: Skin is warm and dry. Comments: Epidermal skin surrounding the mid to distal aspect of the left great toe appears to be circumferentially completely sloughed Patient missing her left great toenail Significant tenderness to palpation throughout the whole first great toe ROM intact DP/PT pulses intact bilaterally Neurological: General: No focal deficit present. Mental Status: She is alert. Psychiatric: Mood and Affect: Mood normal. Behavior: Behavior normal. Laboratory & Radiographic Imaging (if done): Results for orders placed or performed during the hospital encounter of 01/12/24 BMP Result Value Ref Range Sodium 140 135 - 145 mmol/L Potassium 4.1 3.5 - 5.1 mmol/L Chloride 104 98 - 108 mmol/L Bicarbonate 26 21 - 32 mmol/L Anion Gap 14 10 - 20 mmol/L Glucose 109 (H) 65 - 99 mg/dL BUN 24 8 - 25 mg/dL Creatinine 1.06 0.40 - 1.10 mg/dL eGFR 66 >=60 mL/min/1.73 m2 BUN/Creatinine Ratio 22.6 (H) 10.0 - 20.0 Calcium 9.0 8.4 - 10.2 mg/dL Sedimentation Rate Result Value Ref Range Sed Rate 40 (H) 0 - 20 mm/hr CRP, Inflammation Result Value Ref Range CRP(Inflammation) 8.2 0.0 - 10.0 mg/L CBC Auto Differential Result Value Ref Range WBC 9.68 4.50 - 11.00 K/mcL RBC 3.78 (L) 4.00 - 5.20 M/mcL Hemoglobin 11.7 (L) 12.0 - 16.0 g/dL Hematocrit 34.6 (L) 36.0 - 46.0 % MCV 91.5 80.0 - 100.0 fL MCH 31.0 26.0 - 34.0 pg MCHC 33.8 31.0 - 37.0 g/dL Platelets 291 150 - 400 K/mcL RDW - CV 12.9 11.6 - 14.8 % MPV 9.1 (L) 9.4 - 12.4 fL Neutrophils 69.2 % Lymphocytes 18.3 % Monocytes 4.9 % Eosinophils 6.5 % Basophils 0.6 % IG Percent 0.50 % Neutrophils Abs 6.70 1.70 - 7.00 K/mcL Lymphocytes Abs 1.77 0.90 - 4.00 K/mcL Monocytes Abs 0.47 0.30 - 0.90 K/mcL Eosinophils Abs 0.63 (H) 0.00 - 0.50 K/mcL Basophils Abs 0.06 0.00 - 0.30 K/mcL IG Absolute 0.05 0.00 - 0.30 K/mcL Nucleated RBC 0.0 % Nucleated RBC Abs 0.00 0.00 - 0.00 K/mcL XR Foot Left 3+ Views (Standard) Final Result Forefoot soft tissue swelling without an acute osseous abnormality. If there is high clinical concern for osteomyelitis, recommend MRI which is more sensitive. Workstation ID: [id number] MR Foot Left With And Without Contrast (Results Pending) Procedures . BHARAT Austin Zachary Joel, PA-C 01/12/24 1702 Pt was brought in my [facility] from the [facility]. Pt was seeing primary doc and was referred to our ED for a Lt great toe inf. Pt had an ongoing toe inf-- last Thursday skin/toe nail came off tip of toe. No drainage/odor noted at this time. Bed: 02 Expected date: Expected time: Means of arrival: Comments: 28: 48F toe infection documented in this encounter [facility] 01-12-2024 Physician Emergency department Note ED PROVIDER NOTE [facility] EMERGENCY DEPARTMENT NAME: Addie Organ AGE: 48 y.o. : 1975 VISIT DATE: 01/12/2024 CSN: [id number] PCP: Stephany Pelayo PA-C Clinical Impression: 1. Diabetic ulcer of toe of left foot associated with type 2 diabetes mellitus, limited to breakdown of skin (HCC) ED Disposition ED Disposition Hospitalize Condition -- Comment Phone call required?: No Follow-up Information Follow-up information has not been specified. Contact information for after-discharge care Follow-up information has not been specified. Medical Decision Making Considered cellulitis, fractures, dislocation, osteomyelitis, compartment syndrome or neurovascular compromise, lymphangitis, thrombophlebitis, superficial thrombus, DVT, among others. WBC WNL. ESR elevated at 40 but CRP WNL. X-ray does not show any obvious evidence of osteomyelitis but I discussed this case with podiatry Dr. Olivia Castillo who recommended bringing patient in for IV antibiotics, fluids and MRI. I discussed this case with [facility] and they are willing to admit patient. Patient reports allergy to linezolid as well as vancomycin and not willing to try them again and so I discussed antibiotic coverage with the pharmacist, Yolie, who recommended doxycycline for MRSA coverage and cefepime for other gram-negative's/anaerobes. Also I am involving Sheng Anthony for tailoring of these antibiotics. Patient made aware of plan of care and is okay with hospitalization at this time, no further questions at this time. Chief Complaint Patient presents with Toe Injury Wound Check Is a 48-year-old female PMH poorly controlled DM2, HTN, bipolar 1 presenting to the ED for evaluation of toe injury, wound check. She states that this toe that his brother has been given her issues for years now. She states that she has had bone infections in the past and has required IV antibiotics and fluids in the hospital. She states that she has seen Dr. Romeo Castillo please issues in the past. She states that on Thursday, she started experiencing pain to her left great toe and started inspecting and manipulating the toenail when she tried to do so, she states that the toenail ripped off and there was a large amount of pus that drained from underneath the toenail. She states that all of the skin around her big toe also ripped off when she was inspecting her toenail. Denies any fevers or chills at home but states that she has been nauseous over the past 3 days. Denies any intolerance to oral intake. States that she is on a insulin pump and she goes through about 200 units every 2 to 3 days. Denies any trauma or injury that precipitated this pain. History provided by: Patient healthcare interpreter used: No Wound Check Past Medical History: Diagnosis Date Anxiety Bipolar 1 disorder (HCC) Bipolar disorder (HCC) Chronic back pain Coronary artery disease Depression Diabetes mellitus (HCC) Hypertension MRSA (methicillin resistant Staphylococcus aureus) Pacemaker Seizures (HCC) Stroke (HCC) Past Surgical History: Procedure Laterality Date CHOLECYSTECTOMY FOOT SURGERY HYSTERECTOMY ORTHOPEDIC SURGERY left foot surgery PACEMAKER INSERTION Family History Problem Relation Age of Onset Seizures Mother Diabetes Father Hypertension Father Diabetes type II Father Social History Socioeconomic History Marital status: Tobacco Use Smoking status: Former Current packs/day: 1.00 Average packs/day: 1 pack/day for 18.1 years (18.1 ttl pk-yrs) Types: Cigarettes Start date: 09/30/2014 Passive exposure: Current Smokeless tobacco: Never Tobacco comments: Vaping 6 mg nicotine Vaping Use Vaping status: Every Day Substances: Nicotine, Flavoring Devices: Pre-filled or refillable cartridge Substance and Sexual Activity Alcohol use: No Alcohol/week: 0.0 standard drinks of alcohol Drug use: Yes Types: Marijuana Comment: smoking as needed, last use thursday night Social Determinants of Health Financial Resource Strain: Medium Risk (05/11/2023) Overall Financial Resource Strain (CARDIA) Difficulty of Paying Living Expenses: Somewhat hard Food Insecurity: Food Insecurity Present (05/11/2023) Hunger Vital Sign Worried About Running Out of Food in the Last Year: Sometimes true Ran Out of Food in the Last Year: Sometimes true Transportation Needs: No Transportation Needs (05/11/2023) PRAPARE - Transportation Lack of Transportation (Medical): No Lack of Transportation (Non-Medical): No Housing Stability: High Risk (05/11/2023) Housing Stability Vital Sign Unable to Pay for Housing in the Last Year: Yes Unstable Housing in the Last Year: Yes Previous Medications Medication Sig albuterol (PROVENTIL) 2.5 mg /3 mL (0.083 %) nebulizer solution Take 3 mL (2.5 mg total) by nebulization every 6 (six) hours as needed for wheezing or shortness of breath . albuterol 90 mcg/actuation inhaler Inhale 1 (one) puff every 4 to 6 hours as needed for shortness of breath or wheezing . alcohol swabs PadM Apply 1 (one) Swab. topically 5 (five) times a day Clean area before administering insulin. . atorvastatin (LIPITOR) 40 MG tablet Take 1 (one) tablet (40 mg total) by mouth nightly . blood sugar diagnostic (glucose blood) strips by Miscellaneous route 3 (three) times a day As a backup to CGM to test blood sugar. One Touch Verio . busPIRone (BUSPAR) 30 MG tablet Take 1 (one) tablet (30 mg total) by mouth 2 (two) times a day . chlorthalidone (HYGROTON) 25 MG tablet Take 1 (one) tablet (25 mg total) by mouth daily . citalopram (CELEXA) 20 MG tablet Take 1 (one) tablet (20 mg total) by mouth daily . cyanocobalamin (B-12) 1000 MCG tablet Take 1 (one) tablet (1,000 mcg total) by mouth daily Reasons: [facility]. Dexcom G6 Vibrator Operator Misc Use as directed for continuous glucose monitoring . Dexcom G6 Sensor Simran Use as directed for continuous glucose monitoring change every 10 days . Dexcom G6 Transmitter Simran Use as directed for continuous glucose monitoring change every 3 months . divalproex (DEPAKOTE) 500 MG delayed release (DR) tablet Take 1 (one) tablet (500 mg total) by mouth 2 (two) times a day . ergocalciferol (Vitamin D2) 1,250 mcg (50,000 unit) capsule Take 1 (one) capsule (50,000 Units total) by mouth once a week . glucagon (Gvoke HypoPen 2-Pack) 1 mg/0.2 mL AtIn Inject 0.2 mL (1 mg total) under the skin as needed . hydrOXYzine (ATARAX) 25 MG tablet Take 1 (one) tablet (25 mg total) by mouth daily . hydrOXYzine (VISTARIL) 50 MG capsule Take 1 (one) capsule (50 mg total) by mouth 2 (two) times a day . insulin lispro (AdmeLOG,HumaLOG) 100 unit/mL injection Inject up to 150 units once daily via pump . lamoTRIgine (LAMICTAL) 25 MG tablet Take 1 tab daily for 2 weeks and then twice a day thereafter . lancets Mis 1 Lancet by Miscellaneous route 3 (three) times a day . levETIRAcetam (KEPPRA) 1000 MG tablet Take 1 (one) tablet (1,000 mg total) by mouth 2 (two) times a day . levothyroxine (SYNTHROID, LEVOTHROID) 75 MCG tablet Take 1 (one) tablet (75 mcg total) by mouth once daily . lidocaine (LMX) 4 % cream Apply topically 3 (three) times a day . lisinopriL (PRINIVIL,ZESTRIL) 30 MG tablet Take 1 (one) tablet (30 mg total) by mouth daily . metFORMIN (GLUCOPHAGE) 1000 MG tablet Take 1 (one) tablet (1,000 mg total) by mouth 2 (two) times a day . metoprolol succinate (TOPROL-XL) 50 MG 24 hr tablet Take 1 (one) tablet (50 mg total) by mouth daily . metoprolol tartrate (LOPRESSOR) 25 MG tablet Take 1 (one) tablet (25 mg total) by mouth 2 (two) times a day . miscellaneous medical supply Misc 1 each by Miscellaneous route daily . nortriptyline (PAMELOR) 25 MG capsule Take 1 (one) capsule (25 mg total) by mouth nightly . omeprazole (PRILOSEC) 40 MG capsule Take 1 (one) capsule (40 mg total) by mouth 2 (two) times a day . Omnipod Insulin Refill Crtg ondansetron (ZOFRAN-ODT) 4 MG disintegrating tablet Dissolve 1 (one) tablet (4 mg total) on top of tongue every 8 (eight) hours as needed for nausea . oxyCODONE-acetaminophen (PERCOCET) 5-325 mg per tablet Take 1 (one) tablet by mouth nightly as needed for pain (Days supply per fill: 30) Start: 12/24/23. pantoprazole (PROTONIX) 40 MG tablet Take 1 (one) tablet (40 mg total) by mouth daily . polyethylene glycol (GLYCOLAX) 17 gram/dose powder Take 17 (seventeen) g by mouth daily as needed (constipation) . pregabalin (LYRICA) 75 MG capsule Take 1 (one) capsule (75 mg total) by mouth 2 (two) times a day (Days supply per fill: 30) . QUEtiapine (SEROQUEL) 400 MG tablet Take 2 (two) tablets (800 mg total) by mouth nightly . timolol (TIMOPTIC) 0.5 % ophthalmic solution Administer 1 (one) drop into the left eye daily . tiZANidine (ZANAFLEX) 4 MG tablet Take 2 tabs p.o. nightly Start: 12/12/23. traZODone (DESYREL) 50 MG tablet Take 1 (one) tablet (50 mg total) by mouth nightly as needed . [DISCONTINUED] amoxicillin (AMOXIL) 500 MG capsule Take 1 (one) capsule (500 mg total) by mouth 3 (three) times a day . (Patient not taking: Reported on 01/12/2024 .) Allergies Allergen Reactions Iodides Other (See Comments) Renal compromise Ketorolac Hives, Other (See Comments), Rash and GI Intolerance Messes with seizures Unsure of reaction Tramadol Hives, Rash, Other (See Comments) and GI Intolerance Codeine Other reaction(s): Aggressive Behavior Propoxyphene N-Acetaminophen GI Intolerance Adhesive Itching Compazine [Prochlorperazine] Other (See Comments) She reports Compazine made her feel anxious and grumpy Ct: Iodinated Contrast- Oral And Iv Dye Other (See Comments) Shuts my kidneys down Fentanyl Ibuprofen Other (See Comments) shuts kidney down Latex Dermatitis Linezolid Nausea And Vomiting and GI Intolerance Lorazepam Other (See Comments) Nsaids (Non-Steroidal Anti-Inflammatory Drug) shuts my kidney's down Vancomycin Other (See Comments) Shuts kidney down Propoxyphene GI Intolerance Review of Systems Positives and pertinent negatives as per HPI. All other systems were reviewed and are negative. Patient Vitals for the past 24 hrs: BP Temp Temp src Pulse Resp SpO2 Height Weight 01/12/24 1621 -- -- -- -- 16 -- -- -- 01/12/24 1436 (!) 165/113 97.7 F (36.5 C) Oral 99 16 99 % 5' 2 113.4 kg (250 lb) Physical Exam Vitals and nursing note reviewed. Constitutional: Appearance: Normal appearance. HENT: Head: Normocephalic and atraumatic. Eyes: Pupils: Pupils are equal, round, and reactive to light. Cardiovascular: Rate and Rhythm: Normal rate and regular rhythm. Pulses: Normal pulses. Heart sounds: Normal heart sounds. Musculoskeletal: General: Normal range of motion. Cervical back: Normal range of motion. Pulmonary: Effort: Pulmonary effort is normal. Breath sounds: Normal breath sounds. Abdominal: Palpations: Abdomen is soft. Skin: General: Skin is warm and dry. Comments: Epidermal skin surrounding the mid to distal aspect of the left great toe appears to be circumferentially completely sloughed Patient missing her left great toenail Significant tenderness to palpation throughout the whole first great toe ROM intact DP/PT pulses intact bilaterally Neurological: General: No focal deficit present. Mental Status: She is alert. Psychiatric: Mood and Affect: Mood normal. Behavior: Behavior normal. Laboratory & Radiographic Imaging (if done): Results for orders placed or performed during the hospital encounter of 01/12/24 BMP Result Value Ref Range Sodium 140 135 - 145 mmol/L Potassium 4.1 3.5 - 5.1 mmol/L Chloride 104 98 - 108 mmol/L Bicarbonate 26 21 - 32 mmol/L Anion Gap 14 10 - 20 mmol/L Glucose 109 (H) 65 - 99 mg/dL BUN 24 8 - 25 mg/dL Creatinine 1.06 0.40 - 1.10 mg/dL eGFR 66 >=60 mL/min/1.73 m2 BUN/Creatinine Ratio 22.6 (H) 10.0 - 20.0 Calcium 9.0 8.4 - 10.2 mg/dL Sedimentation Rate Result Value Ref Range Sed Rate 40 (H) 0 - 20 mm/hr CRP, Inflammation Result Value Ref Range CRP(Inflammation) 8.2 0.0 - 10.0 mg/L CBC Auto Differential Result Value Ref Range WBC 9.68 4.50 - 11.00 K/mcL RBC 3.78 (L) 4.00 - 5.20 M/mcL Hemoglobin 11.7 (L) 12.0 - 16.0 g/dL Hematocrit 34.6 (L) 36.0 - 46.0 % MCV 91.5 80.0 - 100.0 fL MCH 31.0 26.0 - 34.0 pg MCHC 33.8 31.0 - 37.0 g/dL Platelets 291 150 - 400 K/mcL RDW - CV 12.9 11.6 - 14.8 % MPV 9.1 (L) 9.4 - 12.4 fL Neutrophils 69.2 % Lymphocytes 18.3 % Monocytes 4.9 % Eosinophils 6.5 % Basophils 0.6 % IG Percent 0.50 % Neutrophils Abs 6.70 1.70 - 7.00 K/mcL Lymphocytes Abs 1.77 0.90 - 4.00 K/mcL Monocytes Abs 0.47 0.30 - 0.90 K/mcL Eosinophils Abs 0.63 (H) 0.00 - 0.50 K/mcL Basophils Abs 0.06 0.00 - 0.30 K/mcL IG Absolute 0.05 0.00 - 0.30 K/mcL Nucleated RBC 0.0 % Nucleated RBC Abs 0.00 0.00 - 0.00 K/mcL XR Foot Left 3+ Views (Standard) Final Result Forefoot soft tissue swelling without an acute osseous abnormality. If there is high clinical concern for osteomyelitis, recommend MRI which is more sensitive. Workstation ID: [id number] MR Foot Left With And Without Contrast (Results Pending) Procedures . BHARAT Austin Zachary Joel, PA-C 01/12/24 1702 [facility] 01-12-2024 Note [facility] [address] [place] [address] Patient: Addie Jean Baptiste is a 48 y.o. female. Chief Complaint Patient presents with Toe Pain Left great toe infection since Thursday-pain, drainage HPI: Patient is seen and examined in the office due to concerns for a left great toe ulcer. Patient states this past Thursday she noted a wound to her great toe, which has progressively gotten worse. Denied known injury or trauma. Patient was actually seen in the ER on January 09 for this same wound, however, ultimately left AMA prior to being evaluated as the ER volume was too high and patient states she did not want to wait. Denied fever. The wound has been draining serosanguineous fluid, so she has been wrapping it with some gauze. Endorsed significant pain to the toe as well. Given patient's diagnosis of diabetes and appearance of ulcer on exam, will send to ER for consideration of IV antibiotics and to rule out underlying osteomyelitis. Past medical/surgical history Past Medical History: Diagnosis Date Anxiety Bipolar 1 disorder (HCC) Bipolar disorder (HCC) Chronic back pain Coronary artery disease Depression Diabetes mellitus (HCC) Hypertension MRSA (methicillin resistant Staphylococcus aureus) Pacemaker Seizures (HCC) Stroke (HCC) Past Surgical History: Procedure Laterality Date CHOLECYSTECTOMY FOOT SURGERY HYSTERECTOMY ORTHOPEDIC SURGERY left foot surgery PACEMAKER INSERTION Family History Problem Relation Age of Onset Seizures Mother Diabetes Father Hypertension Father Diabetes type II Father Current Outpatient Medications Medication Sig Dispense Refill albuterol (PROVENTIL) 2.5 mg /3 mL (0.083 %) nebulizer solution Take 3 mL (2.5 mg total) by nebulization every 6 (six) hours as needed for wheezing or shortness of breath . 75 mL 3 albuterol 90 mcg/actuation inhaler Inhale 1 (one) puff every 4 to 6 hours as needed for shortness of breath or wheezing . 18 g 3 alcohol swabs PadM Apply 1 (one) Swab. topically 5 (five) times a day Clean area before administering insulin. . 150 each 5 blood sugar diagnostic (glucose blood) strips by Miscellaneous route 3 (three) times a day As a backup to CGM to test blood sugar. One Touch Verio . 100 strip 5 busPIRone (BUSPAR) 30 MG tablet Take 1 (one) tablet (30 mg total) by mouth 2 (two) times a day . chlorthalidone (HYGROTON) 25 MG tablet Take 1 (one) tablet (25 mg total) by mouth daily . 90 tablet 1 citalopram (CELEXA) 20 MG tablet Take 1 (one) tablet (20 mg total) by mouth daily . 30 tablet 2 cyanocobalamin (B-12) 1000 MCG tablet Take 1 (one) tablet (1,000 mcg total) by mouth daily Reasons: [facility]. 90 tablet 1 Dexcom G6 Vibrator Operator Misc Use as directed for continuous glucose monitoring . 1 each 0 Dexcom G6 Sensor Simran Use as directed for continuous glucose monitoring change every 10 days . 3 each 11 Dexcom G6 Transmitter Simran Use as directed for continuous glucose monitoring change every 3 months . 1 each 3 divalproex (DEPAKOTE) 500 MG delayed release (DR) tablet Take 1 (one) tablet (500 mg total) by mouth 2 (two) times a day . ergocalciferol (Vitamin D2) 1,250 mcg (50,000 unit) capsule Take 1 (one) capsule (50,000 Units total) by mouth once a week . 12 capsule 1 glucagon (Gvoke HypoPen 2-Pack) 1 mg/0.2 mL AtIn Inject 0.2 mL (1 mg total) under the skin as needed . 2 mL 1 insulin lispro (AdmeLOG,HumaLOG) 100 unit/mL injection Inject up to 150 units once daily via pump . 50 mL 5 lamoTRIgine (LAMICTAL) 25 MG tablet Take 1 tab daily for 2 weeks and then twice a day thereafter . 30 tablet 2 lancets Misc 1 Lancet by Miscellaneous route 3 (three) times a day . 100 each 5 levETIRAcetam (KEPPRA) 1000 MG tablet Take 1 (one) tablet (1,000 mg total) by mouth 2 (two) times a day . 180 tablet 1 lidocaine (LMX) 4 % cream Apply topically 3 (three) times a day . 90 g 3 miscellaneous medical supply Misc 1 each by Miscellaneous route daily . 100 each 2 nortriptyline (PAMELOR) 25 MG capsule Take 1 (one) capsule (25 mg total) by mouth nightly . 90 capsule 1 omeprazole (PRILOSEC) 40 MG capsule Take 1 (one) capsule (40 mg total) by mouth 2 (two) times a day . Omnipod Insulin Refill Crtg ondansetron (ZOFRAN-ODT) 4 MG disintegrating tablet Dissolve 1 (one) tablet (4 mg total) on top of tongue every 8 (eight) hours as needed for nausea . 20 tablet 1 pantoprazole (PROTONIX) 40 MG tablet Take 1 (one) tablet (40 mg total) by mouth daily . 90 tablet 0 polyethylene glycol (GLYCOLAX) 17 gram/dose powder Take 17 (seventeen) g by mouth daily as needed (constipation) . 238 g 1 QUEtiapine (SEROQUEL) 400 MG tablet Take 2 (two) tablets (800 mg total) by mouth nightly . 60 tablet 2 timolol (TIMOPTIC) 0.5 % ophthalmic solution Administer 1 (one) drop into the left eye daily . traZODone (DESYREL) 50 MG tablet Take 1 (one) tablet (50 mg total) (more content not included)... [facility] 01-12-2024 History of Present illness Narrative [facility] [address] [place] [address]. [place] [address] Patient: Addie Jean Baptiste is a 48 y.o. female. Chief Complaint Patient presents with Toe Pain Left great toe infection since Thursday-pain, drainage HPI: Patient is seen and examined in the office due to concerns for a left great toe ulcer. Patient states this past Thursday she noted a wound to her great toe, which has progressively gotten worse. Denied known injury or trauma. Patient was actually seen in the ER on January 09 for this same wound, however, ultimately left AMA prior to being evaluated as the ER volume was too high and patient states she did not want to wait. Denied fever. The wound has been draining serosanguineous fluid, so she has been wrapping it with some gauze. Endorsed significant pain to the toe as well. Given patient's diagnosis of diabetes and appearance of ulcer on exam, will send to ER for consideration of IV antibiotics and to rule out underlying osteomyelitis. Past medical/surgical history Past Medical History: Diagnosis Date Anxiety Bipolar 1 disorder (HCC) Bipolar disorder (HCC) Chronic back pain Coronary artery disease Depression Diabetes mellitus (HCC) Hypertension MRSA (methicillin resistant Staphylococcus aureus) Pacemaker Seizures (HCC) Stroke (HCC) Past Surgical History: Procedure Laterality Date CHOLECYSTECTOMY FOOT SURGERY HYSTERECTOMY ORTHOPEDIC SURGERY left foot surgery PACEMAKER INSERTION Family History Problem Relation Age of Onset Seizures Mother Diabetes Father Hypertension Father Diabetes type II Father Current Outpatient Medications Medication Sig Dispense Refill albuterol (PROVENTIL) 2.5 mg /3 mL (0.083 %) nebulizer solution Take 3 mL (2.5 mg total) by nebulization every 6 (six) hours as needed for wheezing or shortness of breath . 75 mL 3 albuterol 90 mcg/actuation inhaler Inhale 1 (one) puff every 4 to 6 hours as needed for shortness of breath or wheezing . 18 g 3 alcohol swabs PadM Apply 1 (one) Swab. topically 5 (five) times a day Clean area before administering insulin. . 150 each 5 blood sugar diagnostic (glucose blood) strips by Miscellaneous route 3 (three) times a day As a backup to CGM to test blood sugar. One Touch Verio . 100 strip 5 busPIRone (BUSPAR) 30 MG tablet Take 1 (one) tablet (30 mg total) by mouth 2 (two) times a day . chlorthalidone (HYGROTON) 25 MG tablet Take 1 (one) tablet (25 mg total) by mouth daily . 90 tablet 1 citalopram (CELEXA) 20 MG tablet Take 1 (one) tablet (20 mg total) by mouth daily . 30 tablet 2 cyanocobalamin (B-12) 1000 MCG tablet Take 1 (one) tablet (1,000 mcg total) by mouth daily Reasons: [facility]. 90 tablet 1 Dexcom G6 Vibrator Operator Mis Use as directed for continuous glucose monitoring . 1 each 0 Dexcom G6 Sensor Simran Use as directed for continuous glucose monitoring change every 10 days . 3 each 11 Dexcom G6 Transmitter Simran Use as directed for continuous glucose monitoring change every 3 months . 1 each 3 divalproex (DEPAKOTE) 500 MG delayed release (DR) tablet Take 1 (one) tablet (500 mg total) by mouth 2 (two) times a day . ergocalciferol (Vitamin D2) 1,250 mcg (50,000 unit) capsule Take 1 (one) capsule (50,000 Units total) by mouth once a week . 12 capsule 1 glucagon (Gvoke HypoPen 2-Pack) 1 mg/0.2 mL AtIn Inject 0.2 mL (1 mg total) under the skin as needed . 2 mL 1 insulin lispro (AdmeLOG,HumaLOG) 100 unit/mL injection Inject up to 150 units once daily via pump . 50 mL 5 lamoTRIgine (LAMICTAL) 25 MG tablet Take 1 tab daily for 2 weeks and then twice a day thereafter . 30 tablet 2 lancets Misc 1 Lancet by Miscellaneous route 3 (three) times a day . 100 each 5 levETIRAcetam (KEPPRA) 1000 MG tablet Take 1 (one) tablet (1,000 mg total) by mouth 2 (two) times a day . 180 tablet 1 lidocaine (LMX) 4 % cream Apply topically 3 (three) times a day . 90 g 3 miscellaneous medical supply Misc 1 each by Miscellaneous route daily . 100 each 2 nortriptyline (PAMELOR) 25 MG capsule Take 1 (one) capsule (25 mg total) by mouth nightly . 90 capsule 1 omeprazole (PRILOSEC) 40 MG capsule Take 1 (one) capsule (40 mg total) by mouth 2 (two) times a day . Omnipod Insulin Refill Crtg ondansetron (ZOFRAN-ODT) 4 MG disintegrating tablet Dissolve 1 (one) tablet (4 mg total) on top of tongue every 8 (eight) hours as needed for nausea . 20 tablet 1 pantoprazole (PROTONIX) 40 MG tablet Take 1 (one) tablet (40 mg total) by mouth daily . 90 tablet 0 polyethylene glycol (GLYCOLAX) 17 gram/dose powder Take 17 (seventeen) g by mouth daily as needed (constipation) . 238 g 1 QUEtiapine (SEROQUEL) 400 MG tablet Take 2 (two) tablets (800 mg total) by mouth nightly . 60 tablet 2 timolol (TIMOPTIC) 0.5 % ophthalmic solution Administer 1 (one) drop into the left eye daily . traZODone (DESYREL) 50 MG tablet Take 1 (one) tablet (50 mg total) by mouth nightly as needed . 90 tablet 0 atorvastatin (LIPITOR) 40 MG tablet Take 1 (one) tablet (40 mg total) by mouth nightly . 90 tablet 0 doxycycline hyclate (VIBRAMYCIN) 100 MG capsule Take 1 (one) capsule (100 mg total) by mouth 2 (two) times a day for 10 days . 20 capsule 0 levothyroxine (SYNTHROID, LEVOTHROID) 75 MCG tablet Take 1 (one) tablet (75 mcg total) by mouth once daily . 90 tablet 0 lisinopriL (PRINIVIL,ZESTRIL) 30 MG tablet Take 1 (one) tablet (30 mg total) by mouth daily . 90 tablet 1 metFORMIN (GLUCOPHAGE) 1000 MG tablet Take 1 (one) tablet (1,000 mg total) by mouth 2 (two) times a day . 60 tablet 5 metoprolol succinate (TOPROL-XL) 50 MG 24 hr tablet Take 1 (one) tablet (50 mg total) by mouth daily . 90 tablet 1 Omnipod 5 G6 Pods, Gen 5, Crtg oxyCODONE-acetaminophen (PERCOCET) 5-325 mg per tablet Take 1 (one) tablet by mouth nightly as needed for pain (Days supply per fill: 30) . 30 tablet 0 pregabalin (LYRICA) 75 MG capsule Take 1 (one) capsule (75 mg total) by mouth 2 (two) times a day (Days supply per fill: 30) . 60 capsule 0 tiZANidine (ZANAFLEX) 4 MG capsule Take 1 (one) capsule (4 mg total) by mouth See Admin Instructions Take 2 tabs p.o. nightly . 60 capsule 3 tiZANidine (Zanaflex) 4 MG tablet Take 2 tabs p.o. nightly . 60 tablet 0 No current facility-administered medications for this visit. Allergies Allergen Reactions Iodides Other (See Comments) Renal compromise Ketorolac Hives, Other (See Comments), Rash and GI Intolerance Messes with seizures Unsure of reaction Tramadol Hives, Rash, Other (See Comments) and GI Intolerance Codeine Other reaction(s): Aggressive Behavior Propoxyphene N-Acetaminophen GI Intolerance Adhesive Itching Compazine [Prochlorperazine] Other (See Comments) She reports Compazine made her feel anxious and grumpy Ct: Iodinated Contrast- Oral And Iv Dye Other (See Comments) Shuts my kidneys down Fentanyl Ibuprofen Other (See Comments) shuts kidney down Latex Dermatitis Linezolid Nausea And Vomiting and GI Intolerance Lorazepam Other (See Comments) Nsaids (Non-Steroidal Anti-Inflammatory Drug) shuts my kidney's down Vancomycin Other (See Comments) Shuts kidney down Propoxyphene GI Intolerance reports that she has quit smoking. Her smoking use included cigarettes. She started smoking about 9 years ago. She has a 18.2 pack-year smoking history. She has been exposed to tobacco smoke. She has never used smokeless tobacco. She reports current drug use. Drug: Marijuana. She reports that she does not drink alcohol. reports that she has quit smoking. Her smoking use included cigarettes. She started smoking about 9 years ago. She has a 18.2 pack-year smoking history. She has been exposed to tobacco smoke. She has never used smokeless tobacco. Current medication list and allergies reviewed and updated with patient. Past medical history reviewed. Past Surgical History reviewed. Personal history Social History reviewed. Family history Family History reviewed. REVIEW OF SYSTEMS: Review of Systems Constitutional: Negative for activity change, appetite change, fatigue, fever and unexpected weight change. HENT: Negative for hearing loss. Eyes: Negative for visual disturbance. Respiratory: Negative for shortness of breath and wheezing. Cardiovascular: Negative for chest pain and leg swelling. Gastrointestinal: Negative for abdominal pain, diarrhea, nausea and vomiting. Genitourinary: Negative for flank pain. Musculoskeletal: Negative for gait problem and joint swelling. Skin: Positive for wound. Negative for rash. Neurological: Negative for dizziness, facial asymmetry and headaches. Psychiatric/Behavioral: Negative for agitation and behavioral problems. All other systems reviewed and are negative. PHYSICAL EXAM: Vitals: 01/12/24 1338 01/12/24 1359 BP: (!) 147/95 (!) 139/93 BP Location: Left arm Left arm Patient Position: Sitting Sitting BP Cuff Size: Adult Adult Pulse: 96 SpO2: 95% Height: 5' 2 Physical Exam Vitals and nursing note reviewed. Constitutional: General: She is not in acute distress. Appearance: Normal appearance. She is not toxic-appearing or diaphoretic. HENT: Head: Normocephalic and atraumatic. Eyes: Extraocular Movements: Extraocular movements intact. Conjunctiva/sclera: Conjunctivae normal. Neck: Thyroid: No thyromegaly. Cardiovascular: Rate and Rhythm: Normal rate and regular rhythm. Heart sounds: No murmur heard. Pulmonary: Effort: Pulmonary effort is normal. Breath sounds: Normal breath sounds. No wheezing. Abdominal: General: Abdomen is flat. Palpations: Abdomen is soft. Musculoskeletal: Cervical back: Neck supple. Skin: General: Skin is warm and dry. Comments: L great toe with ulcerated appearance to the tip with serosanguinous drainage Neurological: General: No focal deficit present. Mental Status: She is alert and oriented to person, place, and time. Mental status is at baseline. Psychiatric: Mood and Affect: Mood normal. Behavior: Behavior normal. ASSESSMENT/PLAN: Diabetic ulcer of left great toe, present since this past Thursday and progressively enlarging with serosanguineous drainage. Given that patient is a diabetic, was sent to ER for consideration of IV antibiotics and rule out osteomyelitis. I am managing and treating Addie Jean Baptiste's complex chronic condition(s) serving as the focal point for the patient s care for consistency and continuity over time. Diagnoses and all orders for this visit: Diabetic ulcer of left great toe (HCC) Note: This dictation was generated using [employer] voice recognition software. Please excuse any grammatical or spelling errors that may have occurred using the system. Condition and plan discussed with patient in detail, patient agrees with plan. Risk, benefits, and side effects of medicines discussed with the patient, patient agrees with plan. Recent laboratory / radiology / other study results discussed with patient. For any new medications prescribed today, patient was educated about indications for the medication, how to take the medication and potential side effects of the medications. Patient to return to office: Return if symptoms worsen or fail to improve. Stephany Pelayo PA-C documented in this encounter [facility] 01-12-2024 Emergency department Note Pt was brought in my [facility] from the [facility]. Pt was seeing primary doc and was referred to our ED for a Lt great toe inf. Pt had an ongoing toe inf-- last Thursday skin/toe nail came off tip of toe. No drainage/odor noted at this time. [facility] 01-12-2024 Emergency department Note Bed: 02 Expected date: Expected time: Means of arrival: Comments: 28: 48F toe infection [facility] 01-11-2024 Telephone encounter Note Last UDS 12/08/23 Last OV 12/08/23 Next OV 02/02/24 [facility] 01-11-2024 Miscellaneous Notes Last UDS 12/08/23 Last OV 12/08/23 Next OV 02/02/24 documented in this encounter [facility] 12-21-2023 Telephone encounter Note Pt states Percocet is helping a lot with pain. Requesting 30 day supply. [facility] 12-21-2023 Miscellaneous Notes Pt states Percocet is helping a lot with pain. Requesting 30 day supply. documented in this encounter [facility] 12-16-2023 Note UDS CONSISTENT AUTHENTICATED BY JIM VELEZ ON 12/16/2023 11:03:43 [facility] 12-14-2023 History of Present illness Narrative Ne supplies order faxed to [employer]. Confirmation received. documented in this encounter [facility] 12-10-2023 Note Addie Organ 48 y.o. HPI WITH ASSESSMENT AND PLAN (dictation): The patient is seen and examined in the office for her 1-month followup of hypertension after we increased her metoprolol to 50 mg extended release once daily. Patient states her systolic blood pressure has been running in the 130s to 140s at home. Patient states for the past few weeks, she has been experiencing cough productive of yellow phlegm, nausea and vomiting. States she previously had sore throat and fever, however, this since resolved. Denied shortness of breath. Patient asking for new nebulizer supplies as well as albuterol nebulizer solution for her COPD. Also asking for bed pads as well as wet wipes through to [employer] so I will see if I can order these. Patient wants to see Dr. Dominguez in [place] of Pulmonology for her family history of pulmonary fibrosis. We will plan to update the referral. Patient was seen in the [facility] ER on November 06 for left-sided visual loss and was ultimately referred to Ophthalmology. She was seen by [employer] analyst, Dr. 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 She was started on Simbrinza and encouraged to follow up with our office in approximately 1 week, although it appears patient has not yet returned to their office, which I encouraged her to do. Patient encouraged to return to the office in approximately 3 months for next scheduled followup unless needed sooner. ASSESSMENT AND PLAN 1. Hypertension with improved blood pressure control, blood pressure noted to be 131/72 in the office today with recent changes. Continue current medications including chlorthalidone 25 mg daily, lisinopril 30 mg daily, Toprol-XL 50 mg once daily. 2. Upper respiratory tract infection. COVID and flu swabs negative in the office today, symptoms ongoing for 2 weeks. We will prescribe a short course of amoxicillin 500 mg 3 times a day given yellow phlegm with cough. 3. Chronic obstructive pulmonary disease. Ordered patient's albuterol nebulizers as well as new nebulizer supplies through [employer]. 4. Family history of pulmonary fibrosis. Will update patient's pulmonology referral to reflect that she wants to see Dr. Dominguez in [place]. 5. 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 I am managing and treating Addie Jean Baptiste's complex chronic condition(s) serving as the focal point for the patient's care for consistency and continuity over time. VISIT SUMMARY: ICD-10-CM ICD-9-CM 1. Primary hypertension I10 401.9 2. Upper respiratory tract infection, unspecified type J06.9 465.9 COVID-19, Molecular POC Influenza A POC Influenza B amoxicillin (AMOXIL) 500 MG capsule 3. Chronic obstructive pulmonary disease, unspecified COPD type ([facility]) J44.9 496 albuterol 90 mcg/actuation inhaler Home Nebulizer (E0570) with Nebulizer Supplies albuterol (PROVENTIL, VENTOLIN); every 6 hours as needed albuterol (PROVENTIL) 2.5 mg /3 mL (0.083 %) nebulizer solution 4. Family history of pulmonary fibrosis Z83.6 V17.6 5. Retinal hemorrhage of left eye H35.62 362.81 Condition and plan discussed with patient in detail, patient agrees with plan. Risk, benefits, and side effects of medicines discussed with the patient, patient agrees with plan. Most recent laboratory (CBC, Hepatic, Renal, Thyroid and Lipid panel) were reviewed, addressed and were found to be satisfactory other than what has been noted above in the A&P. Most recent radiology imaging, and other study results were reviewed and discussed with patient. For any new medications prescribed today, patient was educated about indications for the medication, how to take the medication and potential side effects of the medications. Patient to return to office: Return in about 3 months (around 03/02/2024) for Next scheduled follow up. ---- The following portions of the patient's history were reviewed and updated as appropriate: allergies, current medications, past family history, past medical history, past social history, past surgical history and problem list. Past History Past Medical History: Diagnosis Date Anxiety Bipolar 1 disorder (HCC) Bipolar disorder (HCC) Chronic back pain Coronary artery disease Depression Diabetes mellitus (HCC) Hypertension MRSA (methicillin resistant Staphylococcus aureus) Pacemaker Seizures (HCC) Stroke (HCC) Past Surgical History: Procedure Laterality Date CHOLECYSTECTOMY FOOT SURGERY HYSTERECTOMY ORTHOPEDIC SURGERY left foot surgery PACEMAKER INSERTION Current Outpatient Medications Medication Sig Dispense Refill albuterol (PROVENTIL) 2.5 mg /3 mL (0.083 %) nebulizer solution Take 3 mL (2.5 (more content not included)... [facility] 12-08-2023 Telephone encounter Note Refill DM medications. Dexcom downloaded for review and insulin RX needs completed [facility] 12-08-2023 Miscellaneous Notes Refill DM medications. Dexcom downloaded for review and insulin RX needs completed documented in this encounter [facility] 12-08-2023 Telephone encounter Note duplicate [facility] 12-08-2023 Miscellaneous Notes duplicate documented in this encounter [facility] 12-08-2023 Jim Berrios DO - 12/08/2023 2:29 PM EDT 1. Obtain UDS 2. Order water therapy followed by land therapy 3. Discussed dietary modification and weight loss 4. Resume Lyrica 75 mg 1 p.o. twice daily 5. Discussed starting Percocet 5/325 1 p.o. nightly as needed after review of UDS 6. Continue tizanidine 4 mg 2 p.o. nightly only . documented in this encounter [facility] 12-08-2023 Note [facility] Interventional Pain Management Office Note Patient Name: Addie Jean Baptiste Referring Physician: Stephany Pelayo PA-C Date of : 1975 PCP: Stephany Pelayo PA-C Date of Service: 12/09/23 This is a 48 y.o. female who presents to [facility] for an initial consultation. After discussing the use of ambient listening and audio recording in generating medical documentation, the patient verbally consented to use of this technology for today's visit. History of Present Illness Chief complaint: Lower back pain. Medical history: - Referred by her primary care physician and Dr. Castillo -This discomfort began approximately a year ago, leading her to purchase a power wheelchair due to mobility limitations. -She developed blisters on the soles of her feet, which would rupture and exacerbate her debility. -As a diabetic, she has severe neuropathy in her feet. -She has been taking Zanaflex daily for several years due to muscle spasms in her back and legs. - She was scheduled for back surgery many years ago, but due to a spot on her back, the procedure was postponed due to MRSA. She has a scar on her back from shingles. - She is unable to have an MRI due to a pacemaker. - She was previously on a high dose of Lyrica 100 mg three times a day, but her neurologist has not restarted it yet. She has noticed an improvement in her neuropathy symptoms without Lyrica for several months. - She has never received injections for her lower back for pain control. She developed a spinal headache and had to use a blood patch during a myelogram. - Percocet was effective over 5 years ago. Pain characteristics: - She reports experiencing pain radiating from her waist down to her legs and feet. -She describes the pain as sharp and burning, with varying degrees of intensity. - She experiences nocturnal burning pain in her feet, legs, and kicking, which makes it difficult for her to return to sleep. - Resting in her hospital bed with her legs elevated alleviates her pain, but consistently using a heating pad does not. -VAS 9 out of 10 Functionality: -She uses a cane at home and primarily uses a hospital bed, primarily for bathroom access. - She participated in water therapy a few years ago and is considering water aerobics. Additional medical info: -Her gait is unstable, leading to frequent falls. - She manages to get 4 to 5 hours of sleep per night. - She has had multiple falls this year, including a hand injury from a fall early Thursday morning. -She is incontinent of both stool and urine. Presence of spinal cord stimulator: no Presence of intrathecal pump: no Results XR lumbar spine 07/28/23 1. No acute fracture or traumatic malalignment. 2. Moderate degenerative endplate changes lumbar spine changes otherwise negative. 3. Question of focal enteritis right upper quadrant. Lumbar imaging 07/23/2023 CT scan shows mild findings in the lower back and midback, disc degeneration, multiple bone spurs developing in the back, and disc bulging causing spinal stenosis at L3-4, L4-5, and L5-S1. OARRS/NARxCheck: REVIEWED ON TODAY'S OV Date controlled substance agreement signed: 12/08/23 Opioid Risk Tool: Gender Family History of Substance Abuse (Alcohol): None Family History of Substance Abuse (Illegal Drugs): None Family History of Substance Abuse (Prescription Drugs): None Personal History of Substance Abuse (Alcohol): None Personal History of Substance Abuse (Illegal Drugs): None Personal History of Substance Abuse (Prescription Drugs): None History of Preadolescent Sexual Abuse: 0 Psychological Disease: Attention Deficit Disorder, Obsessive Compulsive Disorder, Bipolar, Schizophrenia Psychological Disease (Depression): Depression Total : 3 Total Score Risk Category: Low Risk (0-3) Past Medical History Past Medical History: Diagnosis Date Anxiety Bipolar 1 disorder (HCC) Bipolar disorder (HCC) Chronic back pain Coronary artery disease Depression Diabetes mellitus (HCC) Hypertension MRSA (methicillin resistant Staphylococcus aureus) Pacemaker Seizures (HCC) Stroke (HCC) Past Surgical History Past Surgical History: Procedure Laterality Date CHOLECYSTECTOMY FOOT SURGERY HYSTERECTOMY ORTHOPEDIC SURGERY left foot surgery PACEMAKER INSERTION Social History Social History Tobacco Use Smoking status: Former Current packs/day: 1.00 Average packs/day: 1 pack/day for 18.0 years (18.0 ttl pk-yrs) Types: Cigarettes Start date: 09/30/2014 Passive exposure: Current Smokeless tobacco: Never Tobacco comments: Vaping 6 mg nicotine Vaping Use Vaping status: Every Day Substances: Nicotine, Flavoring Devices: Pre-filled or refillable cartridge Substance Use Topics Alcohol use: No Alcohol/week: 0.0 standard drinks of alcohol Drug use: Yes Types: Marijuana Comment: smoking as n (more content not included)... [facility] 12-08-2023 History of Present illness Narrative [facility] Interventional Pain Management Office Note Patient Name: Addie Jean Baptiste Referring Physician: Stephany Pelayo PA-C Date of : 1975 PCP: Stephany Pelayo PA-C Date of Service: 12/09/23 This is a 48 y.o. female who presents to [facility] for an initial consultation. After discussing the use of ambient listening and audio recording in generating medical documentation, the patient verbally consented to use of this technology for today's visit. History of Present Illness Chief complaint: Lower back pain. Medical history: - Referred by her primary care physician and Dr. Castillo -This discomfort began approximately a year ago, leading her to purchase a power wheelchair due to mobility limitations. -She developed blisters on the soles of her feet, which would rupture and exacerbate her debility. -As a diabetic, she has severe neuropathy in her feet. -She has been taking Zanaflex daily for several years due to muscle spasms in her back and legs. - She was scheduled for back surgery many years ago, but due to a spot on her back, the procedure was postponed due to MRSA. She has a scar on her back from shingles. - She is unable to have an MRI due to a pacemaker. - She was previously on a high dose of Lyrica 100 mg three times a day, but her neurologist has not restarted it yet. She has noticed an improvement in her neuropathy symptoms without Lyrica for several months. - She has never received injections for her lower back for pain control. She developed a spinal headache and had to use a blood patch during a myelogram. - Percocet was effective over 5 years ago. Pain characteristics: - She reports experiencing pain radiating from her waist down to her legs and feet. -She describes the pain as sharp and burning, with varying degrees of intensity. - She experiences nocturnal burning pain in her feet, legs, and kicking, which makes it difficult for her to return to sleep. - Resting in her hospital bed with her legs elevated alleviates her pain, but consistently using a heating pad does not. -VAS 9 out of 10 Functionality: -She uses a cane at home and primarily uses a hospital bed, primarily for bathroom access. - She participated in water therapy a few years ago and is considering water aerobics. Additional medical info: -Her gait is unstable, leading to frequent falls. - She manages to get 4 to 5 hours of sleep per night. - She has had multiple falls this year, including a hand injury from a fall early Thursday morning. -She is incontinent of both stool and urine. Presence of spinal cord stimulator: no Presence of intrathecal pump: no Results XR lumbar spine 07/28/23 1. No acute fracture or traumatic malalignment. 2. Moderate degenerative endplate changes lumbar spine changes otherwise negative. 3. Question of focal enteritis right upper quadrant. Lumbar imaging 07/23/2023 CT scan shows mild findings in the lower back and midback, disc degeneration, multiple bone spurs developing in the back, and disc bulging causing spinal stenosis at L3-4, L4-5, and L5-S1. OARRS/NARxCheck: REVIEWED ON TODAY'S OV Date controlled substance agreement signed: 12/08/23 Opioid Risk Tool: Gender Family History of Substance Abuse (Alcohol): None Family History of Substance Abuse (Illegal Drugs): None Family History of Substance Abuse (Prescription Drugs): None Personal History of Substance Abuse (Alcohol): None Personal History of Substance Abuse (Illegal Drugs): None Personal History of Substance Abuse (Prescription Drugs): None History of Preadolescent Sexual Abuse: 0 Psychological Disease: Attention Deficit Disorder, Obsessive Compulsive Disorder, Bipolar, Schizophrenia Psychological Disease (Depression): Depression Total : 3 Total Score Risk Category: Low Risk (0-3) Past Medical History Past Medical History: Diagnosis Date Anxiety Bipolar 1 disorder (HCC) Bipolar disorder (HCC) Chronic back pain Coronary artery disease Depression Diabetes mellitus (HCC) Hypertension MRSA (methicillin resistant Staphylococcus aureus) Pacemaker Seizures (HCC) Stroke (HCC) Past Surgical History Past Surgical History: Procedure Laterality Date CHOLECYSTECTOMY FOOT SURGERY HYSTERECTOMY ORTHOPEDIC SURGERY left foot surgery PACEMAKER INSERTION Social History Social History Tobacco Use Smoking status: Former Current packs/day: 1.00 Average packs/day: 1 pack/day for 18.0 years (18.0 ttl pk-yrs) Types: Cigarettes Start date: 09/30/2014 Passive exposure: Current Smokeless tobacco: Never Tobacco comments: Vaping 6 mg nicotine Vaping Use Vaping status: Every Day Substances: Nicotine, Flavoring Devices: Pre-filled or refillable cartridge Substance Use Topics Alcohol use: No Alcohol/week: 0.0 standard drinks of alcohol Drug use: Yes Types: Marijuana Comment: smoking as needed, last use thursday Family History family history includes Diabetes in her father; Diabetes type II in her father; Hypertension in her father; Seizures in her mother. PACU Vitals 12/08/23 1353 BP: (!) 166/113 Pulse: 91 Resp: 18 SpO2: 93% Body mass index is 47.55 kg/m . Wt Readings from Last 3 Encounters: 12/08/23 117.9 kg (260 lb) 12/07/23 117.9 kg (260 lb) 12/02/23 123.8 kg (273 lb) Temp Readings from Last 3 Encounters: 12/07/23 99.2 F (37.3 C) (Oral) 12/01/23 98 F (36.7 C) 11/09/23 98 F (36.7 C) BP Readings from Last 3 Encounters: 12/08/23 (!) 166/113 12/07/23 115/71 12/02/23 (!) 153/92 Pulse Readings from Last 3 Encounters: 12/08/23 91 12/07/23 65 12/02/23 92 Physical Exam General: Patient is right-hand dominant. She is seated in a wheelchair. Patient has a hospital bed at home. She also has a walker at home with bedside commode. She is primarily immobile. Patient is morbidly obese Lungs: Clear to auscultation bilaterally. No wheezing, rales, or rhonchi. Heart: Regular rate and rhythm. No bruits or murmurs are noted. Musculoskeletal: Positive straight leg raise noted bilaterally at the L5 dermatome. Full knee extension to 90 degrees is unable to be performed in a seated position. Leg strength is only 3 out of 5 at both quads. Decreased strength noted with abduction and adduction. Diminished sensory pattern changes noted with light touch along both legs of all dermatomes due to peripheral neuropathy. Diminished L4 reflex noted bilaterally. Increased sensitivity with light touch throughout the entire thoracic and lumbar paraspinal muscle region with palpation. Medications Active Home Medications Medication Sig Take Last Dose On Take Morning of Surgery Comment(s) albuterol 90 mcg/actuation inhaler Inhale 1 (one) puff every 4 to 6 hours as needed for shortness of breath or wheezing . amoxicillin (AMOXIL) 500 MG capsule Take 1 (one) capsule (500 mg total) by mouth 3 (three) times a day . atorvastatin (LIPITOR) 40 MG tablet Take 1 (one) tablet (40 mg total) by mouth nightly . busPIRone (BUSPAR) 30 MG tablet Take 1 (one) tablet (30 mg total) by mouth 2 (two) times a day . chlorthalidone (HYGROTON) 25 MG tablet Take 1 (one) tablet (25 mg total) by mouth daily . citalopram (CELEXA) 20 MG tablet Take 1 (one) tablet (20 mg total) by mouth daily . cyanocobalamin (B-12) 1000 MCG tablet Take 1 (one) tablet (1,000 mcg total) by mouth daily Reasons: [facility]. Dexcom G6 Vibrator Operator Misc Use as directed for continuous glucose monitoring . Dexcom G6 Sensor Simran Use as directed for continuous glucose monitoring change every 10 days . Dexcom G6 Transmitter Simran Use as directed for continuous glucose monitoring change every 3 months . divalproex (DEPAKOTE) 500 MG delayed release (DR) tablet Take 1 (one) tablet (500 mg total) by mouth 2 (two) times a day . ergocalciferol (Vitamin D2) 1,250 mcg (50,000 unit) capsule Take 1 (one) capsule (50,000 Units total) by mouth once a week . glucagon (Gvoke HypoPen 2-Pack) 1 mg/0.2 mL AtIn Inject 0.2 mL (1 mg total) under the skin as needed . hydrOXYzine (ATARAX) 25 MG tablet Take 1 (one) tablet (25 mg total) by mouth daily . hydrOXYzine (VISTARIL) 50 MG capsule Take 1 (one) capsule (50 mg total) by mouth 2 (two) times a day . lamoTRIgine (LAMICTAL) 25 MG tablet Take 1 tab daily for 2 weeks and then twice a day thereafter . levETIRAcetam (KEPPRA) 1000 MG tablet Take 1 (one) tablet (1,000 mg total) by mouth 2 (two) times a day . levothyroxine (SYNTHROID, LEVOTHROID) 75 MCG tablet Take 1 (one) tablet (75 mcg total) by mouth once daily . lidocaine (LMX) 4 % cream Apply topically 3 (three) times a day . lisinopriL (PRINIVIL,ZESTRIL) 30 MG tablet Take 1 (one) tablet (30 mg total) by mouth daily . metFORMIN (GLUCOPHAGE) 1000 MG tablet Take 1 (one) tablet (1,000 mg total) by mouth 2 (two) times a day . metoprolol succinate (TOPROL-XL) 50 MG 24 hr tablet Take 1 (one) tablet (50 mg total) by mouth daily . metoprolol tartrate (LOPRESSOR) 25 MG tablet Take 1 (one) tablet (25 mg total) by mouth 2 (two) times a day . nortriptyline (PAMELOR) 25 MG capsule Take 1 (one) capsule (25 mg total) by mouth nightly . omeprazole (PRILOSEC) 40 MG capsule Take 1 (one) capsule (40 mg total) by mouth 2 (two) times a day . Omnipod Insulin Refill Crtg ondansetron (ZOFRAN-ODT) 4 MG disintegrating tablet Dissolve 1 (one) tablet (4 mg total) on top of tongue every 8 (eight) hours as needed for nausea . pantoprazole (PROTONIX) 40 MG tablet Take 1 (one) tablet (40 mg total) by mouth daily . polyethylene glycol (GLYCOLAX) 17 gram/dose powder Take 17 (seventeen) g by mouth daily as needed (constipation) . QUEtiapine (SEROQUEL) 400 MG tablet Take 2 (two) tablets (800 mg total) by mouth nightly . traZODone (DESYREL) 50 MG tablet Take 1 (one) tablet (50 mg total) by mouth nightly as needed . alcohol swabs PadM Apply 1 (one) Swab. topically 5 (five) times a day Clean area before administering insulin. . blood sugar diagnostic (glucose blood) strips by Miscellaneous route 3 (three) times a day As a backup to CGM to test blood sugar. One Touch Verio . insulin lispro (AdmeLOG,HumaLOG) 100 unit/mL injection Inject up to 150 units once daily via pump . lancets Misc 1 Lancet by Miscellaneous route 3 (three) times a day . pregabalin (LYRICA) 75 MG capsule Take 1 (one) capsule (75 mg total) by mouth 2 (two) times a day (Days supply per fill: 30) . [START ON 12/12/2023] tiZANidine (ZANAFLEX) 4 MG tablet Take 2 tabs p.o. nightly Start: 12/12/23. Encounter Diagnoses Name Primary? Chronic pain syndrome Yes Muscle spasms of both lower extremities DDD (degenerative disc disease), lumbar Lumbar radiculopathy Other chronic pain Myofascial pain syndrome Debilitated patient Assessment & Plan 1. Obtain UDS 2. Order water therapy followed by land therapy 3. Discussed dietary modification and weight loss 4. Resume Lyrica 75 mg 1 p.o. twice daily 5. Discussed starting Percocet 5/325 1 p.o. nightly as needed after review of UDS 6. Continue tizanidine 4 mg 2 p.o. nightly only I will continue to monitor for addiction and aberrant behavior, will use opiates with goal of weaning to lowest effective dose, will maximize doses of neuropathic agents and adjuvant therapies to manage pain, increase function, and maximize coping skills.. For any new medications prescribed today, patient was educated about indications for the medication, how to take the medication and potential side effects of the medications. We have discussed the findings on this office visit. The discussion included a complete verbal explanation of the examination results, diagnosis and current treatment plan. The treatment plan is discussed, covering the risk and benefits as well as possible side effects. The patient's questions were addressed. The patient verbalizes understanding and agreement with planned treatment. The patient is reminded that there is a risk of addiction. Patient has been counseled about the risk and benefit of opioid medications. The patient has been encourged to explore non-medication alternatives to manage pain. The patient is subject to being randomly assessed by oral/urine drug screening and/or pill count as needed to monitor patient compliance and adherance to the plan of care. NARCAN AVAILABILITY OPTIONS ARE DISCUSSED WITH ALL PATIENTS ON OPIOIDS Jim Velez D.O. Interventional Pain Management [facility] documented in this encounter [facility] 12-02-2023 Instructions Sahara Sanchez MD - 12/02/2023 3:18 PM EDT Thank you for choosing the [facility]. Please get labs on the dates as discussed during the office visit. If your were started on any new medications or if your medications were adjusted, your new prescriptions will be faxed to your pharmacy.Please check with your pharmacy in 24 hours. Refer to Diabetes Medication Adjustment Sheet printed below for updated instructions on your diabetic medication. Bring your blood sugar logs and your glucometer for review at every visit as this information is helpful in adjusting your medications and make appropriate recommendations. Check your blood sugars if you are having hypoglycemic symptoms (sweating, shaking, palpitations, anxiety, feeling of hunger, etc). Treat your hypoglycemia if your blood sugars are less than 80 by eating a 15 g carbohydrate snack or taking 4 glucose tablet. Please call us if you have more than 2 hypoglycemic episodes per week. Call us if you are interested in seeing a conservation educator/dietitian. Please call our office at [phone] or send a [employer] message if you have any questions or concerns Insulin Pump Adjustment Sheet: Basal Rates: 1. = Units/hr 2. = Units/hr 3. = Units/hr 4. = Units/hr 5. = Units/hr Bolus Ratios: 1. BREAKFAST : 1 unit : Carbohydrates 2. LUNCH: 1 unit : Carbohydrates 3. Supper: 1 unit : Carbohydrates 4. Snack: 1 unit : Carbohydrates Sensitivity Factor: 1 units for mg/dl Goal Blood Glucose: Other Medications: Metformin 500 mg 1 tab in am for 2 weeks, then increase to 500 mg 1 tabs BID Frequency of Blood sugar checks: four times a day Time of Blood suagr checks: before breakfast and before each meal and bedtime CGM documented in this encounter [facility] 12-02-2023 Note [facility] [address] [id number] Addie Jean Baptiste is a 48 y.o. female being seen for Diabetes Mellitus PCP: Stephany Pelayo PA-C Referring Physician: Stephany Pelayo PA-C HPI: She is here for consultation regarding management of type 1 diabetes that was diagnosed at 23 years of age. Started on insulin in 2004, switch to OmniPod several years ago. Currently on OmniPod 5. She has relocated from [facility] to [place] in 2022, was following up with endocrinology while in [place]. She is in a wheelchair for today's visit, has difficulty walking due to diabetic neuropathy. Current Diabetic Regimen: Omnipod 5 with Zeinab 2 --unable to download OmniPod 5 as she did not bring her PDM, she is going to bring it on Thursday. Blood glucose data: CGM: [employer] Zeinab CGM data and interpretation: Nocturnal control: Target range to hyperglycemia Pre-prandial control: Target range to hyperglycemia Postprandial control: Target range to hyperglycemia Interpretation: CGM trends indicate wide fluctuation in blood sugars, daytime complete due to infrequent scanning. No specific pattern to the blood sugars. Rare hypoglycemic episodes. Hypoglycemia: Hypoglycemia action plan: Reviewed, explained rule of 15 Glucagon:12/02/2023 24 H diet recall: Breakfast- skip Lunch- skip Supper- beef and noodle with rolls and mashed potato Snacks- none Drinks- Water: Lifestyle Improvements:none Follows with metal stamping machine operator:no Diabetes Health Maintenance data reviewed Past Diabetic History : Dx:at 23 years DKA:yes, several years ago Hypoglycemia Unawareness:none Past Medications:started insulin 2004, Omnipod --several years ago, Omnipod 2023 Insulin Pump sites: upper arm H/O Pancreatitis: No H/O Thyroid Cancer: Yes, mother - not sure, pt will update us Microvascular Complications: Neuropathy:numbness, burning , Dr. 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 Hypertension: Dx:several years ago,denies chest pain or shortness of breath. Takes antihypertensive medications regularly. 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 Meals:1 Snacks:2 Home prepared:mostly Beverages:regular red pop 3/day, regular lemonade 30 oz/day,water 3-4 bottles/day Exercise:minimal Weight:gaining Past Medical History: Diagnosis Date Anxiety Bipolar 1 disorder (HCC) Bipolar disorder (HCC) Chronic back pain Coronary artery disease Depression Diabetes mellitus (HCC) Hypertension MRSA (methicillin resistant Staphylococcus aureus) Pacemaker Seizures (HCC) Stroke (HCC) Past Surgical History: Procedure Laterality Date CHOLECYSTECTOMY FOOT SURGERY HYSTERECTOMY ORTHOPEDIC SURGERY left foot surgery PACEMAKER INSERTION Family History Problem Relation Age of Onset Seizures Mother Diabetes Father Hypertension Father Diabetes type II Father Social History Socioeconomic History Marital status: Tobacco Use Smoking status: Former Current packs/day: 1.00 Average packs/day: 1 pack/day for 18.0 years (18.0 ttl pk-yrs) Types: Cigarettes Start date: 09/30/2014 Passive exposure: Current Smokeless tobacco: Never Tobacco comments: Vape Vaping Use Vaping status: Every Day Substances: Nicotine, Flavoring Devices: Pre-filled or refillable cartridge Substance and Sexual Activity Alcohol use: No Alcohol/week: 0.0 standard drinks of alcohol Drug use: No Social Determinants of Health Financial Resource Strain: Medium Risk (05/11/2023) Overall Financial Resource Strain (CARDIA) Difficulty of Paying Living Expenses: Somewhat hard Food Insecurity: Food Insecurity Present (05/11/2023) Hunger Vital Sign Worried About Running Out of Food in the Last Year: Sometimes true Ran Out of Food in the Last Year: Sometimes true Transportation Needs: No Transportation Needs (05/11/2023) PRAPARE - Transportation Lack of Transportation (Medical): No Lack of Transportation (Non-Medical): No Housing Stability: High Risk (05/11/2023) Housing Stability Vital Sign Unable to Pay for Housing in the Last Year: Yes Unstable Housing in the Last Year: Yes Allergies Allergen Reactions Iodides Other (See Comments) Renal compromise Ketorolac Hives, Other (See Comments), Rash and GI Intolerance Messes with seizures Unsure of reaction Tramadol Hives, Rash, Other (See Comments) and GI Intolerance Codeine Other reaction(s): Aggressive Behavior Propoxyphene N-Acetaminophen GI Intolerance Adhesive Itching Compazine [Prochlorperazine] Other (See Co (more content not included)... [facility] 12-02-2023 History of Present illness Narrative Images from the original note were not included. [facility] [address] [place] [id number] Addie Jean Baptiste is a 48 y.o. female being seen for Diabetes Mellitus PCP: Stephany Pelayo PA-C Referring Physician: Stephany Pelayo PA-C HPI: She is here for consultation regarding management of type 1 diabetes that was diagnosed at 23 years of age. Started on insulin in 2004, switch to OmniPod several years ago. Currently on OmniPod 5. She has relocated from [facility] to [place] in 2022, was following up with endocrinology while in [place]. She is in a wheelchair for today's visit, has difficulty walking due to diabetic neuropathy. Current Diabetic Regimen: Omnipod 5 with Zeinab 2 --unable to download OmniPod 5 as she did not bring her PDM, she is going to bring it on Thursday. Blood glucose data: CGM: [employer] Zeinab CGM data and interpretation: Nocturnal control: Target range to hyperglycemia Pre-prandial control: Target range to hyperglycemia Postprandial control: Target range to hyperglycemia Interpretation: CGM trends indicate wide fluctuation in blood sugars, daytime complete due to infrequent scanning. No specific pattern to the blood sugars. Rare hypoglycemic episodes. Hypoglycemia: Hypoglycemia action plan: Reviewed, explained rule of 15 Glucagon:12/02/2023 24 H diet recall: Breakfast- skip Lunch- skip Supper- beef and noodle with rolls and mashed potato Snacks- none Drinks- Water: Lifestyle Improvements:none Follows with metal stamping machine operator:no Diabetes Health Maintenance data reviewed Past Diabetic History : Dx:at 23 years DKA:yes, several years ago Hypoglycemia Unawareness:none Past Medications:started insulin 2004, Omnipod --several years ago, Omnipod 2023 Insulin Pump sites: upper arm H/O Pancreatitis: No H/O Thyroid Cancer: Yes, mother - not sure, pt will update us Microvascular Complications: Neuropathy:numbness, burning , Dr. 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 Hypertension: Dx:several years ago,denies chest pain or shortness of breath. Takes antihypertensive medications regularly. 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 Meals:1 Snacks:2 Home prepared:mostly Beverages:regular red pop 3/day, regular lemonade 30 oz/day,water 3-4 bottles/day Exercise:minimal Weight:gaining Past Medical History: Diagnosis Date Anxiety Bipolar 1 disorder (HCC) Bipolar disorder (HCC) Chronic back pain Coronary artery disease Depression Diabetes mellitus (HCC) Hypertension MRSA (methicillin resistant Staphylococcus aureus) Pacemaker Seizures (HCC) Stroke (HCC) Past Surgical History: Procedure Laterality Date CHOLECYSTECTOMY FOOT SURGERY HYSTERECTOMY ORTHOPEDIC SURGERY left foot surgery PACEMAKER INSERTION Family History Problem Relation Age of Onset Seizures Mother Diabetes Father Hypertension Father Diabetes type II Father Social History Socioeconomic History Marital status: Tobacco Use Smoking status: Former Current packs/day: 1.00 Average packs/day: 1 pack/day for 18.0 years (18.0 ttl pk-yrs) Types: Cigarettes Start date: 09/30/2014 Passive exposure: Current Smokeless tobacco: Never Tobacco comments: Vape Vaping Use Vaping status: Every Day Substances: Nicotine, Flavoring Devices: Pre-filled or refillable cartridge Substance and Sexual Activity Alcohol use: No Alcohol/week: 0.0 standard drinks of alcohol Drug use: No Social Determinants of Health Financial Resource Strain: Medium Risk (05/11/2023) Overall Financial Resource Strain (CARDIA) Difficulty of Paying Living Expenses: Somewhat hard Food Insecurity: Food Insecurity Present (05/11/2023) Hunger Vital Sign Worried About Running Out of Food in the Last Year: Sometimes true Ran Out of Food in the Last Year: Sometimes true Transportation Needs: No Transportation Needs (05/11/2023) PRAPARE - Transportation Lack of Transportation (Medical): No Lack of Transportation (Non-Medical): No Housing Stability: High Risk (05/11/2023) Housing Stability Vital Sign Unable to Pay for Housing in the Last Year: Yes Unstable Housing in the Last Year: Yes Allergies Allergen Reactions Iodides Other (See Comments) Renal compromise Ketorolac Hives, Other (See Comments), Rash and GI Intolerance Messes with seizures Unsure of reaction Tramadol Hives, Rash, Other (See Comments) and GI Intolerance Codeine Other reaction(s): Aggressive Behavior Propoxyphene N-Acetaminophen GI Intolerance Adhesive Itching Compazine [Prochlorperazine] Other (See Comments) She reports Compazine made her feel anxious and grumpy Ct: Iodinated Contrast- Oral And Iv Dye Other (See Comments) Shuts my kidneys down Fentanyl Ibuprofen Other (See Comments) shuts kidney down Latex Dermatitis Linezolid Nausea And Vomiting and GI Intolerance Lorazepam Other (See Comments) Nsaids (Non-Steroidal Anti-Inflammatory Drug) shuts my kidney's down Vancomycin Other (See Comments) Shuts kidney down Propoxyphene GI Intolerance Current Outpatient Medications Medication Sig Dispense Refill albuterol 90 mcg/actuation inhaler Inhale 1 (one) puff every 4 to 6 hours as needed for shortness of breath or wheezing . 18 g 3 amoxicillin (AMOXIL) 500 MG capsule Take 1 (one) capsule (500 mg total) by mouth 3 (three) times a day . 15 capsule 0 atorvastatin (LIPITOR) 40 MG tablet Take 1 (one) tablet (40 mg total) by mouth nightly . 90 tablet 0 chlorthalidone (HYGROTON) 25 MG tablet Take 1 (one) tablet (25 mg total) by mouth daily . 90 tablet 1 citalopram (CELEXA) 20 MG tablet Take 1 (one) tablet (20 mg total) by mouth daily . 30 tablet 2 cyanocobalamin (B-12) 1000 MCG tablet Take 1 (one) tablet (1,000 mcg total) by mouth daily Reasons: [facility]. 90 tablet 1 ergocalciferol (Vitamin D2) 1,250 mcg (50,000 unit) capsule Take 1 (one) capsule (50,000 Units total) by mouth once a week . 12 capsule 1 hydrOXYzine (ATARAX) 25 MG tablet Take 1 (one) tablet (25 mg total) by mouth daily . insulin lispro (AdmeLOG,HumaLOG) 100 unit/mL injection Inject up to 150 units once daily via pump . 10 mL 1 lamoTRIgine (LAMICTAL) 25 MG tablet Take 1 tab daily for 2 weeks and then twice a day thereafter . 30 tablet 2 levETIRAcetam (KEPPRA) 1000 MG tablet Take 1 (one) tablet (1,000 mg total) by mouth 2 (two) times a day . 180 tablet 1 levothyroxine (SYNTHROID, LEVOTHROID) 75 MCG tablet Take 1 (one) tablet (75 mcg total) by mouth once daily . 90 tablet 0 lidocaine (LMX) 4 % cream Apply topically 3 (three) times a day . 90 g 3 lisinopriL (PRINIVIL,ZESTRIL) 30 MG tablet Take 1 (one) tablet (30 mg total) by mouth daily . 90 tablet 1 metoprolol succinate (TOPROL-XL) 50 MG 24 hr tablet Take 1 (one) tablet (50 mg total) by mouth daily . 30 tablet 1 nortriptyline (PAMELOR) 25 MG capsule Take 1 (one) capsule (25 mg total) by mouth nightly . 90 capsule 1 Omnipod Insulin Refill Crtg ondansetron (ZOFRAN-ODT) 4 MG disintegrating tablet Dissolve 1 (one) tablet (4 mg total) on top of tongue every 8 (eight) hours as needed for nausea . 20 tablet 1 pantoprazole (PROTONIX) 40 MG tablet Take 1 (one) tablet (40 mg total) by mouth daily . 90 tablet 0 polyethylene glycol (GLYCOLAX) 17 gram/dose powder Take 17 (seventeen) g by mouth daily as needed (constipation) . 238 g 1 QUEtiapine (SEROQUEL) 400 MG tablet Take 2 (two) tablets (800 mg total) by mouth nightly . 60 tablet 2 tiZANidine (ZANAFLEX) 4 MG tablet Take 1 (one) tablet (4 mg total) by mouth 2 (two) times a day as needed for muscle spasms . 60 tablet 0 traZODone (DESYREL) 50 MG tablet Take 1 (one) tablet (50 mg total) by mouth nightly as needed . 90 tablet 0 Dexcom G6 Vibrator Operator Misc Use as directed for continuous glucose monitoring . 1 each 0 Dexcom G6 Sensor Simran Use as directed for continuous glucose monitoring change every 10 days . 3 each 11 Dexcom G6 Transmitter Simran Use as directed for continuous glucose monitoring change every 3 months . 1 each 3 glucagon (Gvoke HypoPen 2-Pack) 1 mg/0.2 mL AtIn Inject 0.2 mL (1 mg total) under the skin as needed . 2 mL 1 No current facility-administered medications for this visit. Review of Systems Constitutional: Negative for fatigue, fever and unexpected weight change. HENT: Negative for sore throat, trouble swallowing and voice change. Eyes: Negative for photophobia and visual disturbance. Respiratory: Negative for cough and chest tightness. Cardiovascular: Negative for chest pain, palpitations and leg swelling. Gastrointestinal: Negative for abdominal pain, constipation, diarrhea, nausea and vomiting. Endocrine: Negative for cold intolerance, heat intolerance, polydipsia and polyuria. Musculoskeletal: Negative for arthralgias and myalgias. Skin: Negative for color change and rash. Neurological: Negative for tremors and weakness. Psychiatric/Behavioral: Negative for sleep disturbance. The patient is not nervous/anxious. Vital Signs: BP (!) 153/92 Pulse 92 Resp 16 Ht 5' 2 Wt 123.8 kg (273 lb) BMI 49.93 kg/m Physical Exam Constitutional: Well developed, well nourished, obese. Psychiatry: Alert, awake and oriented, comfortable, no apparent distress. SKIN: No rash. No ulcers, no induration. EYES: Eyelids and conjunctiva are normal on inspection. Pupils are equal and reacting to light and accommodation. Extraocular movements are intact. NECK: Reveals no thyromegaly, trachea central. CVS: S1 and S2. Regular and rhythmic. LUNGS: Normal respiratory effort with no use of accessory muscles, Bilaterally clear to auscultation. ABDOMEN: Soft and nontender with no hepatospleenomeagly. EXTREMITIES: Bilateral lower extremities, there is no edema. Diabetic Foot Exam: Right Foot: warm, good capillary refill, bunions, nail exam normal nails without lesions, normal DP and PT pulses, and absent sensations, callus Left Foot: warm, good capillary refill, bunions, nail exam normal nails without lesions, normal DP and PT pulses, and absent sensations , callus CERT PHARMACY TECH: Reveals no tremors in outstretched upper extremities. DTRs are normal. Insulin injection sites were inspected and there is no evidence of lipohypertrophy Labs reviewed. Lab Results Component Value Date HGBA1C 9.2 (H) 10/15/2023 HGBA1C 8.2 (H) 05/10/2023 HGBA1C 9.8 (H) 03/29/2023 Lab Results Component Value Date LDLCALC 70 05/11/2023 CREATININE 1.29 (H) 11/07/2023 There are no preventive care reminders to display for this patient. Impression: 1. Type 2 diabetes mellitus with diabetic polyneuropathy, with long-term current use of insulin (HCC) Ambulatory referral to Endocrinology Microalbumin, Urine, Random 2. Proliferative diabetic retinopathy associated with type 2 diabetes mellitus, unspecified laterality, unspecified proliferative retinopathy type (HCC) 3. Dyslipidemia 4. Essential hypertension 5. Obesity, unspecified classification, unspecified obesity type, unspecified whether serious comorbidity present Assessment and Plan: Diabetes mellitus type 2 uncontrolled with diabetic polyneuropathy and retinopathy -Last HbA1c 9.2% in 09/2023. Goal A1c is 7% or less.. Reviewed diabetes pathophysiology and precipitating factors. Discussed importance of diabetes self management, including SMBG, diet/lifestyle modifications, and medication compliance. Reviewed risk of chronic complications from uncontrolled diabetes, including vision loss, kidney failure, amputation, stroke, heart attack and . Reviewed goal blood sugars and goal hemoglobin A1c. - Medication adjustments today include: Unable to download insulin pump as she did not bring her PDM with her. She is going to bring it on Thursday for a download. Reviewed CGM downloads with her and she has wide fluctuation in blood sugars with no definite pattern. Discussed the importance of counting carbohydrates and taking bolus for every meal. She is interested in GLP-1 RA but she is not sure if her mother had thyroid cancer. She is going to call her on to get information, she will update our office. Continue her on the current pump settings. Will start her on metformin to improve insulin sensitivity. To call if she develops any GI side effects. -Advised to monitor blood sugar 4x daily, and maintain logs. To bring to all logs and glucometer for appointments if not on CGM. Recommend CGM to help with lifestyle modification and also to help with therapeutic changes. To notify office with any hypoglycemia or persistent hyperglycemia so further adjustments can be made. -Reviewed diabetic health maintenance. Ordered urine microalbumin levels, advised her to follow-up ophthalmology regularly 2. Hypertension: Management per primary team. Based on ADA guidelines, goal BP is < 130/80 mmHg. Above goal. Recommend heart healthy Mediterranean or DASH diet pattern for cardiovascular risk reduction. 3. Hyperlipidemia: Management per primary team. ADA guidelines recommend all patients with diabetes ages 40-75 take at least moderate-intensity statin in addition to lifestyle modifications for primary prevention of cardiovascular disease. Currently on statin. 4. Reviewed lifestyle modifications for diabetes and weight management, including healthy diet and physical activity. Recommend goal of at least 20 minutes physical activity most days on a regular basis. Discussed about portion sizes and nutrient groups. Reviewed plate method to balance meals, and advised regular meal pattern with emphasis on increasing non-starchy vegetables and including a protein source with each meal/snack. Advised adequate hydration and avoiding all sugar-sweetened beverages. 5. Reviewed symptoms of hypoglycemia, and management with rule of 15. Reviewed risk of severe hypoglycemia, and treatment with glucagon emergency kit if prescribed. Reviewed glucose monitoring before/during/after physical activity, as well as prior to driving. I spent 65 minutes on this visit, including chart review, history taking and examination of patient, ordering and reviewing medications/labs, counseling regarding diagnosis and above treatment plan with patient and family (if present for visit), and documentation. Return in about 3 months (around 03/03/2024). Thank you very much for allowing me to participate in your patient's care. If you have any questions, please do not hesitate to call my office. Sincerely, 12/02/2023 Sahara Sanchez MD Note: This dictation was generated using [employer] voice recognition software. Please excuse any grammatical or spelling errors that may have occurred using the system. documented in this encounter [facility] 11-12-2023 Telephone encounter Note Patient also requested alcohol pads (not on med sheet, or previously discontinued) Citalopram is by another provider and was prescribed 5/15 for 30 days with 2 refills. [facility] 11-12-2023 Miscellaneous Notes Patient also requested alcohol pads (not on med sheet, or previously discontinued) Citalopram is by another provider and was prescribed 5/15 for 30 days with 2 refills. ----- Message from Jatinder Green sent at 11/12/2023 11:50 AM EDT ----- Regarding: Medication Refill Contact: self MEDICATION REFILL REQUEST: PCP: Stephany Pelayo PA-C Patient called 11/12/23 and is requesting a medication refill for tiZANidine (ZANAFLEX) 4 MG tablet, insulin lispro (AdmeLOG,HumaLOG) 100 unit/mL injection, FreeStyle Zeinab 2 Sensor Kit, Alcohol pads, atorvastatin (LIPITOR) 40 MG tablet, citalopram (CELEXA) 20 MG tablet, levothyroxine (SYNTHROID, LEVOTHROID) 75 MCG tablet, pantoprazole This was confirmed from the current medication list found in the patients chart. Supply Requested: # of days: 90 days Method of receiving: Send to pharmacy Last set of flowsheet rows for OARRS report: OARRS/NARxCHECK Report Received and Assessed: Date controlled substance agreement signed: No data found Date of last drug screen: 07/31/2023 Will this refill be sent to the preferred pharmacy listed below? Yes Preferred pharmacies: [facility] [address] [place] [id number] Pt Call Back Number Work Phone Not on file. Patient call back message sent to the primary care clinical pool. Jatinder Green documented in this encounter [facility] 11-12-2023 Telephone encounter Note ----- Message from Jatinder Green sent at 11/12/2023 11:50 AM EDT ----- Regarding: Medication Refill Contact: self MEDICATION REFILL REQUEST: PCP: Stephany Pelayo PA-C Patient called 11/12/23 and is requesting a medication refill for tiZANidine (ZANAFLEX) 4 MG tablet, insulin lispro (AdmeLOG,HumaLOG) 100 unit/mL injection, FreeStyle Zeinab 2 Sensor Kit, Alcohol pads, atorvastatin (LIPITOR) 40 MG tablet, citalopram (CELEXA) 20 MG tablet, levothyroxine (SYNTHROID, LEVOTHROID) 75 MCG tablet, pantoprazole This was confirmed from the current medication list found in the patients chart. Supply Requested: # of days: 90 days Method of receiving: Send to pharmacy Last set of flowsheet rows for OARRS report: OARRS/NARxCHECK Report Received and Assessed: Date controlled substance agreement signed: No data found Date of last drug screen: 07/31/2023 Will this refill be sent to the preferred pharmacy listed below? Yes Preferred pharmacies: [address] [address] Pt Call Back Number Work Phone Not on file. Patient call back message sent to the primary care clinical pool. Jatinder Green [facility] 11-09-2023 Note Procedure date: 11/08. Ultrasound findings were Negative for a mass, a retinal detachment Notes No RD or Mass [facility] 11-09-2023 Note Procedure date: 11/08. Ultrasound findings were Negative for a mass, a retinal detachment Notes No RD or Mass ORDEROUT 11-09-2023 History of Present illness Narrative REASON FOR VISIT Addie Jean Baptiste presents to clinic today for a New Patient visit. Chief Complaint Decreased Vision; Spots and/or Floaters; Eye Pain HISTORY OF PRESENT ILLNESS HPI Decreased Vision In left eye. Spots and/or Floaters In left eye. Eye Pain In left eye. Comments 48 year old female referred for possible elevated IOP, macular edema and retinal hemorrhage without detachment. Pt states this past Thursday night OS had sudden vision loss and now OS vision is black. Prior to vision loss, she reports OS had many tiny black dots. She reports constant sharp pain, OS. Denies trauma and flashes of light. Pt was seen in ED 11/07/23. Ocular medications: Simbrinza OS 11:00 am this morning - sample given to pt from Jessica Puentes MD FBS: pt did not check today. Last A1c: 9.0% ~1 month ago. Lab Results Component Value Date HGBA1C 10.2 (H) 03/13/2017 HGBA1C 9.1 09/27/2008 Last edited by Jackelyn Yuen on 11/09/2023 3:20 PM. Allergies, medications & history reviewed & updated by Jackelyn Yuen REVIEW OF SYSTEMS ROS Positive for: Musculoskeletal (uses wheelchair), Eyes (decreased vision, sharp pain. black dots - OD), Allergic/Imm (seasonal allergies) Negative for: Skin, Psychiatric Last edited by Jackelyn Yuen on 11/09/2023 2:42 PM. 12 minutes of face to face time was spent with patient performing the pulmonology technician work of this visit. Referring Physician: Chief Complaint Patient presents with Decreased Vision Spots and/or Floaters Eye Pain HPI Decreased Vision In left eye. Spots and/or Floaters In left eye. Eye Pain In left eye. Comments 48 year old female referred for possible elevated IOP, macular edema and retinal hemorrhage without detachment. Pt states this past Thursday night OS had sudden vision loss and now OS vision is black. Prior to vision loss, she reports OS had many tiny black dots. She reports constant sharp pain, OS. Denies trauma and flashes of light. Pt was seen in ED 11/07/23. Ocular medications: Simbrinza OS 11:00 am this morning - sample given to pt from Jessica Puentes MD FBS: pt did not check today. Last A1c: 9.0% ~1 month ago. Lab Results Component Value Date HGBA1C 10.2 (H) 03/13/2017 HGBA1C 9.1 09/27/2008 Last edited by Jackelyn Yuen on 11/09/2023 3:20 PM. Referring Doctor: Jessica Puentes MD [address] [place] [address] Medications: Current Outpatient Medications Medication Sig Albuterol 108 (90 Base) MCG/ACT Aero Soln inhaler Inhale 1 puff every 6 hours as needed for Shortness of Breath. aspirin 81 MG Chew Tab take 1 tablet by mouth daily.. (Patient taking differently: take 81 mg by mouth daily every morning. ) atorvastatin (LIPITOR) 20 MG Tab take 1 tablet by mouth daily.. (Patient taking differently: take 20 mg by mouth daily every morning. ) Blood Pressure Monitoring (ADULT BLOOD PRESSURE CUFF LG) XX KIT 1 Kit by Unknown route As directed. Chlorthalidone 25 MG tablet Take 1 tablet by mouth daily. Citalopram 20 MG tablet Take 1 tablet by mouth daily. cyanocobalamin 500 MCG tablet Take 1 tablet by mouth daily. diphenhydrAMINE 50 MG Cap Take 1 hour prior to pacemaker implant 02/23/17- 7am (Patient not taking: Reported on 11/09/2023) Ergocalciferol 1.25 MG (28026 UT) capsule Take 1 capsule by mouth once a week. GLUCOSE MONITOR LANCETS PRESCRIPTION Use BEFORE MEALS and at BEDTIME to test Blood Sugar. GLUCOSE MONITOR PRESCRIPTION Dispense ONE. Patient requires Insulin. GLUCOSE TEST STRIPS PRESCRIPTION Use BEFORE MEALS and at BEDTIMEto test Blood Glucose hydrOXYzine pamoate 25 MG capsule Take 1 capsule by mouth 3 times daily as needed for Anxiety. insulin glargine 100 UNIT/ML Solution Pen-injector injection Inject 48 Units under the skin at bedtime. insulin lispro 100 UNIT/ML vial - dose 12 units per meal, can do 6 units if having a smaller meal - also dose before meals and at bedtime for BG >150: 151-200 = 2 units 201-250 = 4 units 251-300 = 6 units 301-350 = 8 units 351-400 = 10 units Insulin Pen Needle (PEN NEEDLES 31GX5/16 ) 31G X 8 MM Misc For use with Insulin ONCE daily. Insulin Syringe-Needle U-100 (INSULIN SYRINGE .3CC/31GX5/16 ) 31G X 5/16 0.3 ML Misc Use new syringe with each insulin injection. lamoTRIgine 25 MG tablet Take 1 tablet by mouth daily. levetiracetam 500 MG Tab tablet Take 1,000 mg by mouth 2 times daily. Levothyroxine Sodium (LEVOTHYROXINE PO) Take 75 tablets by mouth daily. lisinopril (ZESTRIL) 5 MG PO TABS take 1 Tab by mouth daily. (Patient not taking: Reported on 11/09/2023) Lisinopril 20 MG tablet Take 1.5 tablets by mouth daily. lithium 300 MG Cap 300mg in AM and 600mg QHS (Patient not taking: Reported on 11/09/2023) losartan 25 MG Tab tablet take 25 mg by mouth daily every morning. metformin 1000 MG Tab take 1 tablet by mouth 2 times daily.. (Patient not taking: Reported on 11/09/2023) Metoprolol 50 MG tab regular release Take 1 tablet by mouth 2 times daily. Nortriptyline 25 MG capsule Take 1 capsule by mouth At bedtime. omeprazole (PRILOSEC) [address] Take 40 mg by mouth daily. Ondansetron 4 MG tablet Take 1 tablet by mouth every 8 hours as needed for Nausea / Vomiting. pantoprazole Sodium 40 MG Pack Take 1 packet by mouth every morning before breakfast. Polyethylene glycol 17 g Pack packet Take 1 packet by mouth daily. pregabalin 100 MG Cap Take 100 mg by mouth at bedtime. QUEtiapine 50 MG Tab take 1 tablet by mouth at bedtime.. TiZANidine HCl (ZANAFLEX PO) take 4 mg by mouth 2 times daily. traZODone 50 MG tablet Take 1 tablet by mouth At bedtime. Urea (CARMOL 40 EX) Apply topically. PMH: Past Medical History: Diagnosis Date A-fib Anxiety state, unspecified 02/16/2008 Asthma Cataract Depressive disorder, not elsewhere classified 02/03/2009 Diabetes 02/04/2008 Diabetic retinopathy Previous laser treatment (unknown date/eye) Headache(784.0) 02/16/2008 Hyperlipidemia Hypertension Hypopotassemia Hypothyroidism Migraine Pacemaker Pseudoseizure 02/03/2009 Renal disease Seizure Syncope PSH Past Surgical History: Procedure Laterality Date PACEMAKER PLACEMENT 01/29/2012 Surgeon: Ashish Long MD,PhD; Location: [facility] IMPLANTABLE LOOP RECORDER 10/12/2010 ANKLE SURGERY CHOLECYSTECTOMY HEART CATHETERIZATION HYSTERECTOMY Family History: Family History Problem Relation Age of Onset Diabetes Father Coronary Artery Disease Father Diabetes Other Coronary Artery Disease Other Hypertension Other Social History Social History Socioeconomic History Marital status: Single Tobacco Use Smoking status: Former Current packs/day: 0.00 Average packs/day: 0.3 packs/day for 15.0 years (3.8 ttl pk-yrs) Types: Cigarettes Start date: 11/22/1996 Quit date: 11/23/2011 Years since quittin.9 Smokeless tobacco: Never Tobacco comments: recently restarted Substance and Sexual Activity Alcohol use: No Drug use: No Social Determinants of Health Financial Resource Strain: Medium Risk (05/11/2023) Received from [facility] Overall Financial Resource Strain (CARDIA) Difficulty of Paying Living Expenses: Somewhat hard Food Insecurity: Food Insecurity Present (05/11/2023) Received from [facility] Hunger Vital Sign Worried About Running Out of Food in the Last Year: Sometimes true Ran Out of Food in the Last Year: Sometimes true Transportation Needs: No Transportation Needs (05/11/2023) Received from [facility] PRAPARE - Transportation Lack of Transportation (Medical): No Lack of Transportation (Non-Medical): No Received from [facility] [place] Safety & Environment Housing Stability: High Risk (05/11/2023) Received from [facility] Housing Stability Vital Sign Unable to Pay for Housing in the Last Year: Yes Unstable Housing in the Last Year: Yes Review of Systems: I reviewed the patient's review of systems, and I have updated the medical record. Base Eye Exam Visual Acuity (Snellen - Linear) Right Left Dist sc 20/70 +1 NLP Dist ph sc 20/50 -1 Tonometry (Tonopen, 2:48 PM) Right Left Pressure 17 23 Pupils Pupils Shape React Right PERRL Round Dilated Left PERRL Round Dilated Visual Marquez Left Right Full Restrictions Total superior temporal, inferior temporal, superior nasal, inferior nasal deficiencies Extraocular Movement Right Left Full Full Neuro/Psych Oriented x3: Yes Mood/Affect: irritable Dilation Both eyes: 1.0% Mydriacyl, 2.5% Phenylephrine @ 2:50 PM Assessment and Plan: Vision loss OS Dense VH OS Hx of PDR OS -started as floaters on Thursday and became NLP next day -hx of PPV/PRP OS with [facility] 09/20[facility] -dense VH likely contributing to vision loss but NLP is unusual. May also be from long standing glaucoma, although no prior hx of glaucoma per referral -given unusual presentation of NLP vision, advised the patient to go to the ED for stroke work up and to rule out intracranial process including compressive optic neuropathy or other vascular/inflammatory/infectious process -Offered the patient to go to the ED at [facility] but patient would like to present to [facility] which is closer to the patient. Discussed the importance of follow up at ED with the patient and the son and verbalizes understanding Ocular hypertension OS -reported to be in 50s, down to 20s at presentation on drops. No prior hx of OHTN -continue drops: simbrinza and timolol prescribed from [facility] today -no evidence of NVA/NVI on exam today although scant hyphema possibly from VH vs NVG. Discussed with glaucoma fellow -monitor Pseudophakia OU -lens in good position Moderate NPDR OD -stable vision -BP today 144/99 -monitor at this time CORNELIO OU -discussed PF AT QID OU -sample AT given in the clinic NEXT VISIT Tropicamide 1% 1 drop Both eyes x 1 Phenylephrine 2.5% 1 drop to Both eyes x 1 Nick applanation: Both Eyes Follow up in 1 week with general retina documented in this encounter [facility] 10-30-2023 Miscellaneous Notes Patient called and stated trazodone was discussed at last appt. Patient has switched pharmacies [facility] Last note states: Take trazodone 50mg;1-2 tabs as needed for insomnia. Medication pended. Called patient to notify, no answer. No VM. documented in this encounter [facility] 10-30-2023 Telephone encounter Note Patient called and stated trazodone was discussed at last appt. Patient has switched pharmacies [facility] Last note states: Take trazodone 50mg;1-2 tabs as needed for insomnia. Medication pended. Called patient to notify, no answer. No VM. [facility] 10-28-2023 Note Addie Organ 48 y.o. HPI WITH ASSESSMENT AND PLAN (dictation): Patient is seen and examined in the office for her 1-month followup of hypertension after increasing her lisinopril to 30 mg once daily. Patient states her blood pressures continue to be elevated at home, although did not bring a log in for evaluation. Patient's blood pressure noted to be 169/109 in the office today on her 2nd reading. Patient also with multiple acute concerns today including a cough productive of sputum, which has been ongoing for 1 month with associated shortness of breath. Denied fever. Patient states her mom passed in August from pulmonary fibrosis and would like to be evaluated for this. We will plan to refer her to Pulmonology. From a previous CTPA from June 2023, it did show mild focal fibrosis in the right lower lobe. Patient also complaining of right upper quadrant abdominal pain which has been ongoing for 3 weeks, associated with nausea/vomiting and worse with eating. Patient states she has been constipated as well. Patient asking if she can be on a GLP-1 medication in addition to her insulin pump for her diabetes. I will plan to update her A1c and discuss this further with her in the future, although she does have an upcoming appointment with Dr. Sanchez of endocrinology in November. Patient encouraged to return to the office in 1 month for next scheduled blood pressure followup. ASSESSMENT AND PLAN 1. Hypertension still uncontrolled with increase in lisinopril. We will plan to increase patient's Toprol-XL to 50 mg once daily. Patient encouraged to keep a blood pressure log at home and let us know if persistently greater than 140/90. Follow up in 1 month. 2. Subacute cough ongoing for 1 month. No fever. Referral to Pulmonology placed and ordered chest x-ray. 3. Right upper quadrant abdominal pain ongoing for 3 weeks and associated with nausea/vomiting and constipation, worse with eating. Ordered CMP as well as abdominal ultrasound. Given prescriptions for MiraLAX as well as Zofran. 4. Type 2 diabetes mellitus. Follow up with Dr. Sanchez of endocrinology in November and repeat A1c. Patient wishes to be on GLP-1 medication; however, I do not feel comfortable prescribing this since she is currently on an insulin pump. 5. Family history of pulmonary fibrosis. Mother passed of pulmonary fibrosis this past August. Referral to Pulmonology placed. I am managing and treating Addie Jean Baptiste's complex chronic condition(s) serving as the focal point for the patient's care for consistency and continuity over time. VISIT SUMMARY: ICD-10-CM ICD-9-CM 1. Primary hypertension I10 401.9 metoprolol succinate (TOPROL-XL) 50 MG 24 hr tablet 2. Subacute cough R05.2 786.2 Ambulatory referral to Pulmonology XR Chest AP/PA and LAT 3. RUQ abdominal pain R10.11 789.01 polyethylene glycol (GLYCOLAX) 17 gram/dose powder Comprehensive Metabolic Panel US Abdomen Complete ondansetron (ZOFRAN-ODT) 4 MG disintegrating tablet 4. Type 2 diabetes mellitus with diabetic polyneuropathy, with long-term current use of insulin (HCC) E11.42 250.60 Z79.4 357.2 V58.67 5. Family history of pulmonary fibrosis Z83.6 V17.6 Ambulatory referral to Pulmonology Condition and plan discussed with patient in detail, patient agrees with plan. Risk, benefits, and side effects of medicines discussed with the patient, patient agrees with plan. Most recent laboratory (CBC, Hepatic, Renal, Thyroid and Lipid panel) were reviewed, addressed and were found to be satisfactory other than what has been noted above in the A&P. Most recent radiology imaging, and other study results were reviewed and discussed with patient. For any new medications prescribed today, patient was educated about indications for the medication, how to take the medication and potential side effects of the medications. Patient to return to office: Return in about 4 weeks (around 11/10/2023) for Next scheduled follow up. ---- The following portions of the patient's history were reviewed and updated as appropriate: allergies, current medications, past family history, past medical history, past social history, past surgical history and problem list. Past History Past Medical History: Diagnosis Date Anxiety Bipolar 1 disorder (HCC) Bipolar disorder (HCC) Chronic back pain Coronary artery disease Depression Diabetes mellitus (HCC) Hypertension MRSA (methicillin resistant Staphylococcus aureus) Pacemaker Seizures (HCC) Stroke (HCC) Past Surgical History: Procedure Laterality Date CHOLECYSTECTOMY FOOT SURGERY HYSTERECTOMY ORTHOPEDIC SURGERY left foot surgery PACEMAKER INSERTION Current Outpatient Medications Medication Sig Dispense Refill albuterol 90 mcg/actuation inhaler Inhale 1 (one) puff every 4 to 6 hours as needed f (more content not included)... [facility] 10-07-2023 History of Present illness Narrative Requested records from [facility]. RENETTA singed. Faxed. Copy sent to scan. documented in this encounter [facility] 10-07-2023 Instructions Rosario Garcia MD - 10/07/2023 3:10 PM EDT Please carefully review the following plan / instructions from today's appointment with Dr. Garcia and implement into your daily routine / medication administration: --Start Lamictal 25mg daily for 2 weeks and then twice a day thereafter For mood stabilization.Discussed about SJS or rash and if you notice any please stop taking the medication. --Increase Celexa to 20mg;daily For anxiety/depression. --Continue Seroquel 800mg nightly for insomnia/mood stabilization. --Take trazodone 50mg;1-2 tabs as needed for insomnia. --May take Atarax 25mg twice a day as needed for anxiety. --Schedule for Individual therapy sessions at [facility]. --Will request records from [facility]. --Follow up with PCP as scheduled. --Please call clinic for any questions or concerns. --Return to clinic in 6-8 weeks. A) Continue to stay as active as possible mentally, socially and physically (aka Behavioral Activation Therapy) B) Avoid all alcohol and illicit drugs. These agents adversely effect mental health/stability and can counteract many psychiatric medications. C) Pertinent psychotropic medication prescription(s) have been e-prescribed to the pharmacy on record. They should be available for pickup shortly. D) If running low on medication, please allow 2-3 business days for refills. E) Please call the [facility] if needed, for questions, or other psychiatric concerns. F) Call 911 or present to nearest emergency room if you are feeling unsafe or suicidal. Additionally, individuals can call the Suicide Hotline locally at or nationally at . documented in this encounter [facility] 10-07-2023 History of Present illness Narrative BEHAVIORAL HEALTH PROGRESS NOTE 10/06/2023 Psychiatric Assessment: 48yr old female with past psychiatry h/o BPAD 1;PTSD;SANTOS presents to the clinic for follow up visit.She endorses periods of low mood;decreased motivation;increased anxiety;trouble sleeping due to hearing voices and seeing images.We discussed about a trial of Lamictal to help with mood stabilization;adjust celexa to help with anxiety along with Individual therapy sessions and she agreed with the plan. Problem List Items Addressed This Visit Bipolar 1 disorder (HCC) - Primary Relevant Medications citalopram (CELEXA) 20 MG tablet Other Visit Diagnoses Post traumatic stress disorder (PTSD) Relevant Medications citalopram (CELEXA) 20 MG tablet Generalized anxiety disorder Relevant Medications citalopram (CELEXA) 20 MG tablet TREATMENT PLAN: --Start Lamictal 25mg daily for 2 weeks and then twice a day thereafter For mood stabilization.Discussed about SJS or rash and if you notice any Please stop taking the medication. --Increase Celexa to 20mg;daily For anxiety/depression. --Continue Seroquel 800mg nightly for insomnia/mood stabilization. --Take trazodone 50mg;1-2 tabs as needed for insomnia. --May take Atarax 25mg twice a day as needed for anxiety. --Schedule for Individual therapy sessions at [facility]. --Will request records from [facility]. --Follow up with PCP as scheduled. --Please call clinic for any questions or concerns. --Return to clinic in 6-8 weeks. Reviewed with patient: --Pt routinely educated on working diagnosis and treatment plan. The pt was allowed to participate in the development/modification of the treatment plan using shared decision making and other pt centered practices and principles. --The patient has been informed of the indications, benefits, risks, possible side effects and alternatives to the medical treatment listed above and they have expressed full and complete understanding / provided verbal informed consent. --A safety plan including emergency psychiatric services discussed and agreed upon by the patient. -Call 911 or present to nearest emergency room if you are feeling unsafe or suicidal. Additionally, individuals can call the Suicide Hotline locally at or nationally at . HISTORY: Addie Jean Baptiste, a 48 y.o. female. with past psychiatry h/o of BPAD type 1;PTSD;SANTOS presents to the clinic for a follow up visit.Patient was last seen in July 2023. Lives in [place] with daughter in law and son. Interval History: Patient reports feeling anxious and depressed lately.She reports having racing thoughts about being scared of , what will my kids do if I ; which got worse after her mother few months ago.She states that she took care of her mother majority of the time and yet has flashbacks about her mother.She endorses low mood;decreased motivation;trouble sleeping;fatigue;crying spells;increased panic attacks.She discussed about ativan which her mom took and something similar which would be helpful.She reports having trouble falling asleep.Denies using any alcohol or illicit drugs.She reports feeling paranoid about people out to get her.Denies having any suicidal or homicidal ideations.Denies any auditory or visual hallucinations.Denies any medication side effects. CURRENT MEDICATIONS: Celexa 10mg daily Seroquel 800mg at bedtime Atarax 25mg BID as needed PREVIOUS MEDICATIONS: Zoloft Prozac valium Wellbutrin seroquel Depakote Buspar trazodone PFSH: Past Medical History: Diagnosis Date Anxiety Bipolar 1 disorder (HCC) Bipolar disorder (HCC) Chronic back pain Coronary artery disease Depression Diabetes mellitus (HCC) Hypertension MRSA (methicillin resistant Staphylococcus aureus) Pacemaker Seizures (HCC) Stroke (HCC) Social History Substance and Sexual Activity Alcohol Use No Alcohol/week: 0.0 standard drinks of alcohol Social History Substance and Sexual Activity Drug Use No The following portions of the patient's history were reviewed and updated as appropriate: allergies, current medications, past medical history, past social history and problem list. Review of Systems All systems were reviewed and found to be negative except the above mentioned symptoms Current Medications: Current Outpatient Medications: albuterol 90 mcg/actuation inhaler, Inhale 1 (one) puff every 4 to 6 hours as needed for shortness of breath or wheezing ., Disp: , Rfl: atorvastatin (LIPITOR) 40 MG tablet, Take 1 (one) tablet (40 mg total) by mouth nightly ., Disp: 30 tablet, Rfl: 0 chlorthalidone (HYGROTON) 25 MG tablet, Take 1 (one) tablet (25 mg total) by mouth daily ., Disp: 90 tablet, Rfl: 1 citalopram (CELEXA) 10 MG tablet, Take half tab daily for 1 week and then 1 tab thereafter ., Disp: 30 tablet, Rfl: 1 cyanocobalamin (B-12) 1000 MCG tablet, Take 1 (one) tablet (1,000 mcg total) by mouth daily Reasons: [facility]., Disp: 90 tablet, Rfl: 1 ergocalciferol (Vitamin D2) 1,250 mcg (50,000 unit) capsule, Take 1 (one) capsule (50,000 Units total) by mouth once a week ., Disp: 12 capsule, Rfl: 1 FreeStyle Zeinab 2 [place] Misc, Inject 1 each under the skin 2 (two) times a day ., Disp: , Rfl: FreeStyle Zeinab 2 Sensor Kit, 1 kit by Miscellaneous route every 14 (fourteen) days ., Disp: 2 kit, Rfl: 1 insulin lispro (AdmeLOG,HumaLOG) 100 unit/mL injection, Inject up to 150 units once daily via pump ., Disp: 10 mL, Rfl: 1 levETIRAcetam (KEPPRA) 1000 MG tablet, Take 1 (one) tablet (1,000 mg total) by mouth 2 (two) times a day ., Disp: 180 tablet, Rfl: 1 levothyroxine (SYNTHROID, LEVOTHROID) 75 MCG tablet, Take 1 (one) tablet (75 mcg total) by mouth once daily ., Disp: 30 tablet, Rfl: 0 lidocaine (LMX) 4 % cream, Apply topically 3 (three) times a day ., Disp: 90 g, Rfl: 3 lisinopriL (PRINIVIL,ZESTRIL) 30 MG tablet, Take 1 (one) tablet (30 mg total) by mouth daily ., Disp: 90 tablet, Rfl: 1 metoprolol succinate (TOPROL-XL) 25 MG 24 hr tablet, Take 1 (one) tablet (25 mg total) by mouth daily ., Disp: 90 tablet, Rfl: 1 nortriptyline (PAMELOR) 25 MG capsule, Take 1 (one) capsule (25 mg total) by mouth nightly ., Disp: 90 capsule, Rfl: 1 OLANZapine (ZYPREXA) 5 MG tablet, Take 0.5 (one-half) tablet (2.5 mg total) by mouth 2 (two) times a day As needed for anxiety ., Disp: 30 tablet, Rfl: 0 Omnipod Insulin Refill Crtg, , Disp: , Rfl: ondansetron (ZOFRAN-ODT) 4 MG disintegrating tablet, Dissolve 1 (one) tablet (4 mg total) on top of tongue every 8 (eight) hours as needed for nausea ., Disp: 10 tablet, Rfl: 0 pantoprazole (PROTONIX) 40 MG tablet, Take 1 (one) tablet (40 mg total) by mouth daily ., Disp: 30 tablet, Rfl: 0 promethazine (PHENERGAN) 25 MG tablet, Take 1 (one) tablet (25 mg total) by mouth every 6 (six) hours as needed for nausea ., Disp: 10 tablet, Rfl: 0 QUEtiapine (SEROQUEL) 400 MG tablet, Take 2 (two) tablets (800 mg total) by mouth nightly ., Disp: 60 tablet, Rfl: 2 tiZANidine (ZANAFLEX) 4 MG tablet, Take 1 (one) tablet (4 mg total) by mouth 2 (two) times a day as needed for muscle spasms ., Disp: 60 tablet, Rfl: 0 OARRS Review: Reviewed and not on any controlled substances Allergies: Allergies: Iodides, Ketorolac, Tramadol, Codeine, Propoxyphene n-acetaminophen, Adhesive, Compazine [prochlorperazine], Ct: iodinated contrast- oral and iv dye, Fentanyl, Ibuprofen, Latex, Linezolid, Lorazepam, Nsaids (non-steroidal anti-inflammatory drug), Vancomycin, and Propoxyphene BP (!) 169/91 (BP Location: Right arm, Patient Position: Sitting, BP Cuff Size: Adult) Pulse 98 SpO2 96% Psychiatric Examination and Mental Status Exam: Mental Status Exam Grooming & Hygiene: Casually dressed,hair dyed in pick General Behavior: pleasant & cooperative Psychomotor Activity: Ambulating in wheelchair due to having difficulties walking Speech: Increased rate,normal rhythm and volume Flow to Thought: Linear and goal directed Thought Associations: Intact Content of Thought: Denies having any SI or HI;hearing voices throughout the day;seeing people aren't there;feels paranoid Mood: I feel sad and down Affect: Congruent with mood,cheerful Insight: good Judgment: fair Orientation: alert and oriented to person, place, time Memory: Intact Attention / Concentration: adequate Labs/ Diagnostic Imaging reviewed: Lab Results Component Value Date GLUCOSE 222 (H) 09/27/2023 CALCIUM 9.5 09/27/2023 NA 139 09/27/2023 K 4.0 09/27/2023 CL 104 09/27/2023 BUN 20 09/27/2023 CREATININE 1.13 (H) 09/27/2023 Lab Results Component Value Date WBC 9.10 09/27/2023 HGB 11.4 (L) 09/27/2023 HCT 32.4 (L) 09/27/2023 MCV 85.7 09/27/2023 PLT 319 09/27/2023 RBC 3.78 (L) 09/27/2023 Total Time: 25 minutes was spent with patient face to face and >50% time spent in counseling or coordinating care Rosario Garcia MD This report was partially created using voice recognition software and is inherently subject to errors including those of syntax and sound-alike substitutions which may escape proofreading. In such instances, original meaning may be extrapolated by contextual derivation. documented in this encounter [facility] 10-07-2023 Note BEHAVIORAL HEALTH NM OGRESS NOTE 10/06/2023 Psychiatric Assessment: 48yr old female with past psychiatry h/o BPAD 1;PTSD;SANTOS presents to the clinic for follow up visit.She endorses periods of low mood;decreased motivation;increased anxiety;trouble sleeping due to hearing voices and seeing images.We discussed about a trial of Lamictal to help with mood stabilization;adjust celexa to help with anxiety along with Individual therapy sessions and she agreed with the plan. Problem List Items Addressed This Visit Bipolar 1 disorder (HCC) - Primary Relevant Medications citalopram (CELEXA) 20 MG tablet Other Visit Diagnoses Post traumatic stress disorder (PTSD) Relevant Medications citalopram (CELEXA) 20 MG tablet Generalized anxiety disorder Relevant Medications citalopram (CELEXA) 20 MG tablet TREATMENT PLAN: --Start Lamictal 25mg daily for 2 weeks and then twice a day thereafter For mood stabilization.Discussed about SJS or rash and if you notice any Please stop taking the medication. --Increase Celexa to 20mg;daily For anxiety/depression. --Continue Seroquel 800mg nightly for insomnia/mood stabilization. --Take trazodone 50mg;1-2 tabs as needed for insomnia. --May take Atarax 25mg twice a day as needed for anxiety. --Schedule for Individual therapy sessions at [facility]. --Will request records from [facility]. --Follow up with PCP as scheduled. --Please call clinic for any questions or concerns. --Return to clinic in 6-8 weeks. Reviewed with patient: --Pt routinely educated on working diagnosis and treatment plan. The pt was allowed to participate in the development/modification of the treatment plan using shared decision making and other pt centered practices and principles. --The patient has been informed of the indications, benefits, risks, possible side effects and alternatives to the medical treatment listed above and they have expressed full and complete understanding / provided verbal informed consent. --A safety plan including emergency psychiatric services discussed and agreed upon by the patient. -Call 911 or present to nearest emergency room if you are feeling unsafe or suicidal. Additionally, individuals can call the Suicide Hotline locally at or nationally at . HISTORY: Addie Jean Baptiste, a 48 y.o. female. with past psychiatry h/o of BPAD type 1;PTSD;SANTOS presents to the clinic for a follow up visit.Patient was last seen in July 2023. Lives in [place] with daughter in law and son. Interval History: Patient reports feeling anxious and depressed lately.She reports having racing thoughts about being scared of , what will my kids do if I ; which got worse after her mother few months ago.She states that she took care of her mother majority of the time and yet has flashbacks about her mother.She endorses low mood;decreased motivation;trouble sleeping;fatigue;crying spells;increased panic attacks.She discussed about ativan which her mom took and something similar which would be helpful.She reports having trouble falling asleep.Denies using any alcohol or illicit drugs.She reports feeling paranoid about people out to get her.Denies having any suicidal or homicidal ideations.Denies any auditory or visual hallucinations.Denies any medication side effects. CURRENT MEDICATIONS: Celexa 10mg daily Seroquel 800mg at bedtime Atarax 25mg BID as needed PREVIOUS MEDICATIONS: Zoloft Prozac valium Wellbutrin seroquel Depakote Buspar trazodone PFSH: Past Medical History: Diagnosis Date Anxiety Bipolar 1 disorder (HCC) Bipolar disorder (HCC) Chronic back pain Coronary artery disease Depression Diabetes mellitus (HCC) Hypertension MRSA (methicillin resistant Staphylococcus aureus) Pacemaker Seizures (HCC) Stroke (HCC) Social History Substance and Sexual Activity Alcohol Use No Alcohol/week: 0.0 standard drinks of alcohol Social History Substance and Sexual Activity Drug Use No The following portions of the patient's history were reviewed and updated as appropriate: allergies, current medications, past medical history, past social history and problem list. Review of Systems All systems were reviewed and found to be negative except the above mentioned symptoms Current Medications: Current Outpatient Medications: albuterol 90 mcg/actuation inhaler, Inhale 1 (one) puff every 4 to 6 hours as needed for shortness of breath or wheezing ., Disp: , Rfl: atorvastatin (LIPITOR) 40 MG tablet, Take 1 (one) tablet (40 mg total) by mouth nightly ., Disp: 30 tablet, Rfl: 0 chlorthalidone (HYGROTON) 25 MG tablet, Take 1 (one) tablet (25 mg total) by mouth daily ., Disp: 90 tablet, Rfl: 1 citalopram (CELEXA) 10 MG tablet, Take half tab daily for 1 week and then 1 tab thereafter ., Disp: 30 tablet, Rfl: 1 cyanocobalamin (B-12) 1000 MCG tablet, Take 1 (one) tablet (1,000 mcg total) (more content not included)... [facility] 10-06-2023 Telephone encounter Note Pt requesting refill as her appt was rescheduled into next week from tomorrow. [facility] 10-06-2023 Miscellaneous Notes Pt requesting refill as her appt was rescheduled into next week from tomorrow. documented in this encounter [facility] 09-16-2023 Instructions Virgen Campos MD - 09/16/2023 1:44 PM EDT Keep a blood pressure log several times a week Goal is <140/90 or ideally <130/80 documented in this encounter [facility] 09-16-2023 History of Present illness Narrative Patient Name: Addie Jean Baptiste MR #: [id number] : 1975 Date of evaluation: 09/16/2023 Referring Provider: Fab Head MD Assessment and Plan: 1. Bilateral leg pain - possible sacroilieitis 2. Hearing loss of left ear, unspecified hearing loss type 3. Suspect neurological functional disorder - stroke like symptoms with normal MRI brain in past 4. Possible seizures 5. Left sided hearing loss 6. Diabetes with neuropathy 7. S/p AICD RESULTS personally reviewed: Care everywhere 2008 - VIDEO EEG - 3 nonepileptic event - [facility] 2015 - EEG - She reports EEG few years ago with prior neurologist which she thinks was abnormal - we will request 12/2022 - ER - 3 seizures 04/2023 - ER - Recent admission for weakness, but no stroke on MRI Neurology consult by Dr Head MRI brain normal (except for small old stroke) ? Functional ? Prolonged migraine aura 08/2023 - ER - [facility] - few seizures, may have missed medications, left AMA Her main issue today is lower back pain which radiates down left leg Diagnosed with sacroiliitis per CT lumbar spine and clinical exam at [facility] - getting injections at that time Per review of physician notes : Per history, patient reported low back pain radiating to the left leg. She had a positive YUMIKO test and positive Hai, SIJ tenderness to palpation on the left side. On exam, the patient was found to have left sided SIJ tenderness. Imaging showed Mild bilateral degenerative sacroiliitis (on CT scan of the lumbar spine) (Also had prior foot surgeries and possibly on this for pain from those as well) She reports having EMG - discussed we will obtain results Lyrica - conflicting doses (100mg TID versus 150mg at night) ? At one point prior neurologist was prescribing for neuropathy per patient, but we are pending record retrieval She had left that neurology practice for a few years Now she would like to restart Lyrica Previously being prescribed by PCP when not seeing neurologist However, I could not find evidence that PCP had been filling (per their note 08/2023 note they discussed with patient they will not fill) Multiple allergies to NSAID as below Will obtain EMG results before prescribing lyrica through our practice - noted dose is also fairly high, think I would not do this high of a dose. Noted seizure like episodes may be epileptic or nonepileptic. Discussed seizure medication compliance Repeat EEG Continue Keppra Add ENT referral for hearing loss Add thrombotic risk screen given young age for stroke - EEG (Standard); Future - Ambulatory referral to ENT; Future - Thrombotic Risk Screen; Future - INSTRUCTIONS as below Patient Instructions Keep a blood pressure log several times a week Goal is <140/90 or ideally <130/80 Condition and plan discussed with patient in detail, and questions were addressed/answered. If any new medications were prescribed today, patient was educated regarding indication, administration, and potential side effects, and to call office if side effects or problems occur. Patient was also asked to call office for new or worsening symptoms. Return in about 3 months (around 12/16/2023). Chief Complaint: Chief Complaint Patient presents with [facility] seizures HOSPITAL FOLLOW UP 04/2023 - Hospital Consult - Dr Head Pleasant 48 y.o. female with history of uncontrolled DM with insulin pump, neuropathy from diabetes (EMG from prior neuro - our office to obtain results), SSS s/p pacemaker/AICD placement, bipolar disorder seeing psychiatry, Left foot fracture with multiple surgeries, chronic urinary incontinence, muscle spasms, uses motorized chair to avoid falls. History also significant for mom with pulmonary fibrosis and blood clots Care everywhere 2008 - VIDEO EEG - 3 nonepileptic event - [facility] 2015 - EEG - low voltage, otherwise normal She reports EEG few years ago with prior neurologist which she thinks was abnormal - we will request 12/2022 - ER - 3 seizures 08/2023 - ER - [facility] - few seizures, may have missed medications, left AMA She is on keppra 1000mg BID from previous neurologists. 04/2023 - Recent admission for weakness, but no stroke on MRI Neurology consulted - suspect functional versus migraine Current Symptoms Her main issue today is lower back pain which radiates down left leg Diagnosed with sacroiliitis per CT lumbar spine and clinical exam at [facility] - getting injections at that time Per review of physician notes : Per history, patient reported low back pain radiating to the left leg. She had a positive YUMIKO test and positive Hai, SIJ tenderness to palpation on the left side. On exam, the patient was found to have left sided SIJ tenderness. Imaging showed Mild bilateral degenerative sacroiliitis (on CT scan of the lumbar spine) She reports having EMG - discussed we will obtain results Also had prior foot surgeries and possibly on this for pain from those as well Lyrica - conflicting doses (100mg TID versus 150mg at night) ? At one point prior neurologist was prescribing for neuropathy per patient, but we are pending record retrieval She had left that neurology practice for a few years Now she would like to restart Lyrica Previously being prescribed by PCP when not seeing neurologist However, I could not find evidence that PCP had been filling (per their note 08/2023 note they discussed with patient they will not fill) Multiple allergies to NSAID as below Relevant medications -- Keppra 1000mg BID -- Lamotrigine -- Tizanidine -- Seroquel 800mg nightly -- Nortriptyline Depakote - side effect - nausea Zonisamide 200mg daily - I see this on an old med list, does not recall what for Allergies NSAID - kidney shut down Toradol - unsure Tramadol Seizures Codeine And Related Aggressive Behavior Darvocet [Propoxyphene N-Apap] Nausea and Vomiting Iodides - some type of allergy PRIOR HISTORY HOSPITAL CONSULT - Dr Head 04/2023 Patient presented to the ED with complaints of left face, arm and leg numbness and weakness as well as loss of vision in her left eye and left ear pain and loss of hearing. She reports waking up on Wednesday 05/09 and reports having left face, arm and leg numbness. States she slept most of Thursday (05/09) but reports that symptoms remained present all day. Denies headache or any other neurological symptoms. Reports waking up on Thursday 05/10 and noted her left face, arm and leg numbness was still present an now she noted weakness in her left arm and leg. Also reports loss of vision in her left eye and loss of hearing in her left ear as well as left ear pain. Reports having a frontal headache upon waking. Describes her pain as a sharp stabbing pain that is constant. Rates her pain a 9/10 on the pain scale. Due to symptoms not improved she decided to present to the ED. Upon arrival to the ED her left face, arm and leg numbness was still present as well as her left arm and leg weakness. Loss of vision in the left eye and loss of hearing in the left ear still present. Headache present on arrival. She reports having headaches daily and states this headache is a bad one compared to my usual ones . Reports usually taking Tylenol at home for headaches and denies obtaining relief. Per chart review the patient was evaluated by neurology at [facility] on 01/13/23 for seizures. Patient has a history of seizures. Reports having seizures weekly; her last seizure was last week. Reports being compliant with her Keppra. Also, per chart review she was evaluated at [facility] 03/06/22 for right side weakness and numbness. Etiology was thought to be due to functional neurological disorder. CTH and CTA were unrevealing. A1c was 10.5. LDL 84. MRI was noted to be ordered but does not appear to be completed. Patient was unaware as to why and noted that she does have an AICD and thought it might have been due to that. She does report recently having her AICD changed out and replaced with an MRI compatible one. Patient lives with her son and [id number]. She does not drive. Reports that she does not ambulate well due to unsteadiness due to several chronic conditions. Reports that her son and [id number] care for her most of the time. She reports that is suppose to having home health services start soon. Reports that she manages her own medications at home and states I try to . She follows by reporting she is compliant with medications. She denies smoking, alcohol use or illicit drug use. Denies any issues with eating or drinking recently. Denies any recent falls or loss of consciousness. Reports having an open wound on one of her toes on her left foot; stating it just keeps coming back and I don't know why it happens . Per chart review the patient has had 4 ED visits some resulting in admission and others resulting in being discharged from the ED all in April 2023. 04/28/23-ED visit for UTI 04/30/23-ED visit for Left otitis media 05/04/23-ED visit for Left otitis media 05/10/23-ED visit for left side numbness/weakness, left eye vision disturbance and left ear pain Left hemiparesis, most likely functional neurologic syndrome versus prolonged motor migraine aura-improving. Review of Systems: Please see HPI as well Past Medical History: She has a past medical history of Anxiety, Bipolar 1 disorder ([facility]), Bipolar disorder ([facility]), Chronic back pain, Coronary artery disease, Depression, Diabetes mellitus ([facility]), Hypertension, MRSA (methicillin resistant Staphylococcus aureus), Pacemaker, Seizures ([facility]), and Stroke ([facility]). Social History She reports that she has quit smoking. Her smoking use included cigarettes. She started smoking about 9 years ago. She has a 18 pack-year smoking history. She has never used smokeless tobacco. She reports that she does not drink alcohol and does not use drugs. Family History Her family history includes Diabetes type II in her father; Hypertension in her father; Seizures in her mother. Current Medications Outpatient Medications Prior to Visit Medication Sig Dispense Refill albuterol 90 mcg/actuation inhaler Inhale 1 (one) puff every 4 to 6 hours as needed for shortness of breath or wheezing . chlorthalidone (HYGROTON) 25 MG tablet Take 1 (one) tablet (25 mg total) by mouth daily . 90 tablet 1 cyanocobalamin (B-12) 1000 MCG tablet Take 1 (one) tablet (1,000 mcg total) by mouth daily Reasons: [facility]. 90 tablet 1 ergocalciferol (Vitamin D2) 1,250 mcg (50,000 unit) capsule Take 1 (one) capsule (50,000 Units total) by mouth once a week . 12 capsule 1 FreeStyle Zeinab 2 [place] Misc Inject 1 each under the skin 2 (two) times a day . levETIRAcetam (KEPPRA) 1000 MG tablet Take 1 (one) tablet (1,000 mg total) by mouth 2 (two) times a day . 180 tablet 1 lisinopriL (PRINIVIL,ZESTRIL) 30 MG tablet Take 1 (one) tablet (30 mg total) by mouth daily . 90 tablet 1 nortriptyline (PAMELOR) 25 MG capsule Take 1 (one) capsule (25 mg total) by mouth nightly . 90 capsule 1 Omnipod Insulin Refill Crtg atorvastatin (LIPITOR) 40 MG tablet Take 1 (one) tablet (40 mg total) by mouth nightly . 30 tablet 0 citalopram (CELEXA) 10 MG tablet Take half tab daily for 1 week and then 1 tab thereafter . 30 tablet 1 FreeStyle Zeinab 2 Sensor Kit 1 kit by Miscellaneous route every 14 (fourteen) days . 2 kit 1 insulin lispro (AdmeLOG,HumaLOG) 100 unit/mL injection Inject up to 150 units once daily via pump . 10 mL 1 levothyroxine (SYNTHROID, LEVOTHROID) 75 MCG tablet Take 1 (one) tablet (75 mcg total) by mouth once daily . 30 tablet 0 metoprolol succinate (TOPROL-XL) 25 MG 24 hr tablet Take 1 (one) tablet (25 mg total) by mouth daily . 90 tablet 1 ondansetron (ZOFRAN-ODT) 4 MG disintegrating tablet Dissolve 1 (one) tablet (4 mg total) on top of tongue every 8 (eight) hours as needed for nausea . 10 tablet 0 pantoprazole (PROTONIX) 40 MG tablet Take 1 (one) tablet (40 mg total) by mouth daily . 30 tablet 0 promethazine (PHENERGAN) 25 MG tablet Take 1 (one) tablet (25 mg total) by mouth every 6 (six) hours as needed for nausea . (Patient not taking: Reported on 10/13/2023 .) 10 tablet 0 QUEtiapine (SEROQUEL) 400 MG tablet Take 2 (two) tablets (800 mg total) by mouth nightly . 60 tablet 2 tiZANidine (ZANAFLEX) 4 MG tablet Take 1 (one) tablet (4 mg total) by mouth 2 (two) times a day as needed for muscle spasms . 60 tablet 0 No facility-administered medications prior to visit. Physical Examination: BP (!) 166/100 Pulse 97 SpO2 97% General: Well developed, well nourished in no acute distress. HEENT: normocephalic, atraumatic, no oral lesions or tongue lacerations, mucous membranes are moist CV: regular rate Respiratory: nonlabored, no wheezes noted, no usage of accessory muscles noted Ext: No edema, nontender, no ulcers noted on visible skin/joints Skin: No significant rashes on visible skin Neck: Supple, no meningismus Psychiatric: Normal affect, pleasant, cooperative MENTAL STATUS: Alertness, Attention Span & Concentration: Normal Language: normal production, normal comprehension Speech: Normal Orientation: Normal Patient is able to give details of her own history. CRANIAL NERVES II: Pupils are reactive to light III, IV and : Extraocular movements are full, no strabismus noted. No visible nystagmus on current exam. V: Facial sensation is intact and symmetric. VII: No clear facial asymmetry, no facial weakness. VIII: Hearing is grossly intact. IX and X: No dysarthria GAIT: Normal, with normal stride, normal arm swing, normal speed COORDINATION & GROSS MOTOR: Abnormal Movements: None MOTOR Bulk and tone are normal. There is no pronator drift. MUSCLE STRENGTH: Moving all extremities well and without asymmetry SENSATION: Limited exam due to limiting in person contact during Covid-19 pandemic IMAGING: I personally reviewed any recent head imaging CT Angiogram Head Neck Final Result by Floyd Schafer MD (11/07/2023 2802) 1. No unenhanced evidence of an acute intracranial process. 2. No major-vessel occlusion, high-grade stenosis, or intracranial aneurysm. 3. Scattered atherosclerotic plaque within the neck. No measurable vertebral or carotid stenosis. 4. Mosaic attenuation in the upper lungs suggests air trapping. ART/ads Workstation ID: [id number] CT Abdomen Pelvis Without Contrast Final Result by Leena Chiu DO (07/31/[id number]) No definitive acute inflammatory process or obstructive uropathy in the abdomen or pelvis. Workstation ID: [id number] CT Thoracic Spine Without Contrast 3D Final Result by Ko Ovalle MD (07/23/2023 1829) Negative for thoracic fracture. Workstation ID: [id number] CT Cervical Spine Without Contrast 3D Final Result by Ko Ovalle MD (07/23/2023 1825) Negative for cervical fracture. Chronic changes as above. Workstation ID: [id number] CT Head Or Brain Without Contrast Final Result by Ko Ovalle MD (07/23/2023 1848) Negative for skull fracture or intracranial abnormality. Workstation ID: [id number] CT Thoracic And Lumbar Spine Reconstructed With 3D Final Result by Polo Rolon MD (07/12/2023 180) 1. No evidence of pulmonary embolism. 2. Bronchial wall thickening suggestive of bronchitis but no other acute cardiopulmonary process. 3. Hepatosplenomegaly. 4. Mild sigmoid colon diverticulosis. 5. Air in the urinary bladder which may be due to recent instrumentation but if no recent instrumentation has been performed this could be due to emphysematous cystitis. 6. No acute fracture or subluxation in the thoracic or lumbar spine. There are degenerative changes as described above. SAY/alt Workstation ID: [id number] CTA Pulm Art and CT Abd Pelvis with IV contrast Final Result by Polo Rolon MD (07/12/2023 180) 1. No evidence of pulmonary embolism. 2. Bronchial wall thickening suggestive of bronchitis but no other acute cardiopulmonary process. 3. Hepatosplenomegaly. 4. Mild sigmoid colon diverticulosis. 5. Air in the urinary bladder which may be due to recent instrumentation but if no recent instrumentation has been performed this could be due to emphysematous cystitis. 6. No acute fracture or subluxation in the thoracic or lumbar spine. There are degenerative changes as described above. SAY/alt Workstation ID: [id number] CT Kidney Stone Final Result by Jermaine Peralta MD (07/08/2023 2307) 1. No hydronephrosis. No hydroureter. No nephroureterolithiasis. 2. No bladder stones. No focal bladder wall thickening. 3. Cholecystectomy. 4. Other findings as described. Workstation ID: [id number] LABS: Reviewed the following Admission on 07/31/2023, Discharged on 07/31/2023 Component Date Value Ref Range Status SARS-CoV-2 07/31/2023 Not Detected Not Detected Final Influenza A 07/31/2023 Not Detected Not Detected Final Influenza B 07/31/2023 Not Detected Not Detected Final Ventricular Rate 06/18/2023 96 BPM Final Atrial Rate 06/18/2023 96 BPM Final P-R Interval 06/18/2023 184 ms Final QRS Duration 06/18/2023 82 ms Final Q-T Interval 06/18/2023 358 ms Final QTC Calculation (Bezet) 06/18/2023 452 ms Final P [place] 06/18/2023 53 degrees Final R [place] 06/18/2023 10 degrees Final T [place] 06/18/2023 34 degrees Final Sodium 07/31/2023 137 135 - 145 mmol/L Final Potassium 07/31/2023 4.6 3.5 - 5.1 mmol/L Final Chloride 07/31/2023 104 98 - 108 mmol/L Final Bicarbonate 07/31/2023 23 21 - 32 mmol/L Final Anion Gap 07/31/2023 15 10 - 20 mmol/L Final Glucose 07/31/2023 158 (H) 65 - 99 mg/dL Final BUN 07/31/2023 26 (H) 8 - 25 mg/dL Final Creatinine 07/31/2023 1.27 (H) 0.40 - 1.10 mg/dL Final eGFR 07/31/2023 53 (L) >=60 mL/min/1.73 m2 Final BUN/Creatinine Ratio 07/31/2023 20.5 (H) 10.0 - 20.0 Final Calcium 07/31/2023 9.4 8.4 - 10.2 mg/dL Final Troponin T 07/31/2023 19 (CH) <=14 ng/L Final Troponin T Interpretation 07/31/2023 Possible acute cardiac injury. Final Troponin T 07/31/2023 18 (CH) <=14 ng/L Final Delta Difference Troponin T 07/31/2023 -1 < = -/+ 7 change ng/L Final Interp Troponin T Delta Change 07/31/2023 Probable non-acute cardiac injury or late presentation of acute injury. Final WBC 07/31/2023 7.57 4.50 - 11.00 K/mcL Final RBC 07/31/2023 3.77 (L) 4.00 - 5.20 M/mcL Final Hemoglobin 07/31/2023 11.6 (L) 12.0 - 16.0 g/dL Final Hematocrit 07/31/2023 33.9 (L) 36.0 - 46.0 % Final MCV 07/31/2023 89.9 80.0 - 100.0 fL Final MCH 07/31/2023 30.8 26.0 - 34.0 pg Final MCHC 07/31/2023 34.2 31.0 - 37.0 g/dL Final Platelets 07/31/2023 274 150 - 400 K/mcL Final RDW - CV 07/31/2023 12.2 11.6 - 14.8 % Final MPV 07/31/2023 9.0 (L) 9.4 - 12.4 fL Final Neutrophils 07/31/2023 74.1 % Final Lymphocytes 07/31/2023 16.2 % Final Monocytes 07/31/2023 7.1 % Final Eosinophils 07/31/2023 1.5 % Final Basophils 07/31/2023 0.7 % Final IG Percent 07/31/2023 0.40 % Final Neutrophils Abs 07/31/2023 5.61 1.70 - 7.00 K/mcL Final Lymphocytes Abs 07/31/2023 1.23 0.90 - 4.00 K/mcL Final Monocytes Abs 07/31/2023 0.54 0.30 - 0.90 K/mcL Final Eosinophils Abs 07/31/2023 0.11 0.00 - 0.50 K/mcL Final Basophils Abs 07/31/2023 0.05 0.00 - 0.30 K/mcL Final IG Absolute 07/31/2023 0.03 0.00 - 0.30 K/mcL Final Nucleated RBC 07/31/2023 0.0 % Final Nucleated RBC Abs 07/31/2023 0.00 0.00 - 0.00 K/mcL Final Extra Tube 07/31/2023 Hold for add-ons. Final Extra Tube 07/31/2023 Hold for add-ons. Final Magnesium 07/31/2023 1.6 1.6 - 2.4 mg/dL Final Beta-Hydroxybutyrate 07/31/2023 0.8 (H) 0.0 - 0.3 mmol/L Final pH, Venous 07/31/2023 7.36 7.32 - 7.42 Final pCO2, [place] 07/31/2023 43.0 41.0 - 51.0 mm Hg Final pO2, [place] 07/31/2023 32 25 - 40 mm Hg Final HCO3, [place] 07/31/2023 23.4 (L) 24.0 - 28.0 mmol/L Final Base Excess, [place] 07/31/2023 -1.6 -2.0 - 2.0 Final O2 Sat, [place] 07/31/2023 57.7 40.0 - 70.0 % Final Hemoglobin, Blood Gas 07/31/2023 11.7 (L) 12.0 - 16.0 g/dL Final Hematocrit, Calculated 07/31/2023 35.9 (L) 36.0 - 46.0 % Final Amphetamine Screen, Urine 07/31/2023 None Detected None Detected Final Barbiturate Screen, Urine 07/31/2023 None Detected None Detected Final Benzodiazepine Screen, Urine 07/31/2023 None Detected None Detected Final Cannabinoid Screen, Urine 07/31/2023 None Detected None Detected Final Cocaine, Screen Urine 07/31/2023 None Detected None Detected Final Methadone Screen, Urine 07/31/2023 None Detected None Detected Final Opiate Screen, Urine 07/31/2023 None Detected None Detected Final Oxycodone Screen, Urine 07/31/2023 None Detected None Detected Final Buprenorphine, Ur 07/31/2023 None Detected None Detected Final Fentanyl, Ur 07/31/2023 None Detected None Detected Final Total Protein 07/31/2023 7.2 6.0 - 8.0 g/dL Final Albumin 07/31/2023 3.8 3.2 - 5.2 g/dL Final Total Bilirubin 07/31/2023 0.6 0.0 - 1.3 mg/dL Final Bilirubin, Direct 07/31/2023 <0.2 0.0 - 0.4 mg/dL Final Alkaline Phosphatase 07/31/2023 133 40 - 150 U/L Final AST 07/31/2023 9 0-35 U/L U/L Final ALT 07/31/2023 8 0-35 U/L U/L Final Lipase 07/31/2023 17 15 - 65 U/L Final Color, Urine 07/31/2023 Yellow Colorless, Yellow Final Clarity, Urine 07/31/2023 Clear Clear Final Specific [place] 07/31/2023 1.013 1.005 - 1.025 Final pH, Urine 07/31/2023 5.0 5.0 - 7.0 Final Protein, Urine 07/31/2023 100 (A) Negative mg/dL Final Glucose, Urine 07/31/2023 50 (A) Negative mg/dL Final Ketones, Urine 07/31/2023 20 (A) Negative mg/dL Final Bilirubin, Urine 07/31/2023 Negative Negative Final Urobilinogen, Urine 07/31/2023 <2.0 <2.0 mg/dL Final Blood, Urine 07/31/2023 Moderate (A) Negative Final Nitrite, Urine 07/31/2023 Negative Negative Final Leukocyte Esterase, Urine 07/31/2023 Negative Negative Final WBCs, Urine 07/31/2023 9 (H) 0 - 5 /hpf Final RBCs, Urine 07/31/2023 3 0 - 3 /hpf Final Bacteria, Urine 07/31/2023 None Seen None Seen /hpf Final Squamous Epithelial 07/31/2023 2 0 - 4 /hpf Final Admission on 07/28/2023, Discharged on 07/29/2023 Component Date Value Ref Range Status Glucose 07/28/2023 >500 (CH) 65 - 99 mg/dL Final Sodium 07/28/2023 134 (L) 135 - 145 mmol/L Final Potassium 07/28/2023 4.1 3.5 - 5.1 mmol/L Final Chloride 07/28/2023 98 98 - 108 mmol/L Final Bicarbonate 07/28/2023 23 21 - 32 mmol/L Final Anion Gap 07/28/2023 17 10 - 20 mmol/L Final Glucose 07/28/2023 547 (CH) 65 - 99 mg/dL Final BUN 07/28/2023 30 (H) 8 - 25 mg/dL Final Creatinine 07/28/2023 1.22 (H) 0.40 - 1.10 mg/dL Final eGFR 07/28/2023 56 (L) >=60 mL/min/1.73 m2 Final BUN/Creatinine Ratio 07/28/2023 24.6 (H) 10.0 - 20.0 Final Calcium 07/28/2023 9.4 8.4 - 10.2 mg/dL Final Total Protein 07/28/2023 7.3 6.0 - 8.0 g/dL Final Albumin 07/28/2023 3.8 3.2 - 5.2 g/dL Final Total Bilirubin 07/28/2023 0.4 0.0 - 1.3 mg/dL Final Bilirubin, Direct 07/28/2023 <0.2 0.0 - 0.4 mg/dL Final Alkaline Phosphatase 07/28/2023 132 40 - 150 U/L Final AST 07/28/2023 9 0-35 U/L U/L Final ALT 07/28/2023 15 0-35 U/L U/L Final Color, Urine 07/28/2023 Colorless Colorless, Yellow Final Clarity, Urine 07/28/2023 Clear Clear Final Specific [place] 07/28/2023 1.021 1.005 - 1.025 Final pH, Urine 07/28/2023 6.0 5.0 - 7.0 Final Protein, Urine 07/28/2023 100 (A) Negative mg/dL Final Glucose, Urine 07/28/2023 >=500 (A) Negative mg/dL Final Ketones, Urine 07/28/2023 Negative Negative mg/dL Final Bilirubin, Urine 07/28/2023 Negative Negative Final Urobilinogen, Urine 07/28/2023 <2.0 <2.0 mg/dL Final Blood, Urine 07/28/2023 Moderate (A) Negative Final Nitrite, Urine 07/28/2023 Negative Negative Final Leukocyte Esterase, Urine 07/28/2023 Negative Negative Final WBCs, Urine 07/28/2023 6 (H) 0 - 5 /hpf Final RBCs, Urine 07/28/2023 <1 0 - 3 /hpf Final Bacteria, Urine 07/28/2023 Rare (A) None Seen /hpf Final Squamous Epithelial 07/28/2023 4 0 - 4 /hpf Final Beta-Hydroxybutyrate 07/28/2023 0.3 0.0 - 0.3 mmol/L Final WBC 07/28/2023 8.08 4.50 - 11.00 K/mcL Final RBC 07/28/2023 3.87 (L) 4.00 - 5.20 M/mcL Final Hemoglobin 07/28/2023 11.8 (L) 12.0 - 16.0 g/dL Final Hematocrit 07/28/2023 34.4 (L) 36.0 - 46.0 % Final MCV 07/28/2023 88.9 80.0 - 100.0 fL Final MCH 07/28/2023 30.5 26.0 - 34.0 pg Final MCHC 07/28/2023 34.3 31.0 - 37.0 g/dL Final Platelets 07/28/2023 329 150 - 400 K/mcL Final RDW - CV 07/28/2023 12.2 11.6 - 14.8 % Final MPV 07/28/2023 9.1 (L) 9.4 - 12.4 fL Final Neutrophils 07/28/2023 65.6 % Final Lymphocytes 07/28/2023 24.9 % Final Monocytes 07/28/2023 6.8 % Final Eosinophils 07/28/2023 1.5 % Final Basophils 07/28/2023 0.7 % Final IG Percent 07/28/2023 0.50 % Final Neutrophils Abs 07/28/2023 5.30 1.70 - 7.00 K/mcL Final Lymphocytes Abs 07/28/2023 2.01 0.90 - 4.00 K/mcL Final Monocytes Abs 07/28/2023 0.55 0.30 - 0.90 K/mcL Final Eosinophils Abs 07/28/2023 0.12 0.00 - 0.50 K/mcL Final Basophils Abs 07/28/2023 0.06 0.00 - 0.30 K/mcL Final IG Absolute 07/28/2023 0.04 0.00 - 0.30 K/mcL Final Nucleated RBC 07/28/2023 0.0 % Final Nucleated RBC Abs 07/28/2023 0.00 0.00 - 0.00 K/mcL Final Extra Tube 07/28/2023 Hold for add-ons. Final Extra Tube 07/28/2023 Hold for add-ons. Final pH, Venous 07/28/2023 7.37 7.32 - 7.42 Final pCO2, [place] 07/28/2023 43.2 41.0 - 51.0 mm Hg Final pO2, [place] 07/28/2023 61 (H) 25 - 40 mm Hg Final HCO3, [place] 07/28/2023 24.2 24.0 - 28.0 mmol/L Final Base Excess, [place] 07/28/2023 -0.7 -2.0 - 2.0 Final O2 Sat, [place] 07/28/2023 90.7 (H) 40.0 - 70.0 % Final Hemoglobin, Blood Gas 07/28/2023 12.4 12.0 - 16.0 g/dL Final Hematocrit, Calculated 07/28/2023 38.0 36.0 - 46.0 % Final Glucose 07/29/2023 422 (A) 65 - 99 mg/dL Final Glucose 07/29/2023 422 (CH) 65 - 99 mg/dL Final Glucose 07/29/2023 360 (A) 65 - 99 mg/dL Final Glucose 07/29/2023 360 (H) 65 - 99 mg/dL Final Admission on 07/12/2023, Discharged on 07/12/2023 Component Date Value Ref Range Status Glucose 07/12/2023 412 (CH) 65 - 99 mg/dL Final Sodium 07/12/2023 136 135 - 145 mmol/L Final Potassium 07/12/2023 4.2 3.5 - 5.1 mmol/L Final Chloride 07/12/2023 98 98 - 108 mmol/L Final Bicarbonate 07/12/2023 25 21 - 32 mmol/L Final Anion Gap 07/12/2023 17 10 - 20 mmol/L Final Glucose 07/12/2023 310 (H) 65 - 99 mg/dL Final BUN 07/12/2023 28 (H) 8 - 25 mg/dL Final Creatinine 07/12/2023 0.99 0.40 - 1.10 mg/dL Final eGFR 07/12/2023 71 >=60 mL/min/1.73 m2 Final BUN/Creatinine Ratio 07/12/2023 28.3 (H) 10.0 - 20.0 Final Calcium 07/12/2023 9.8 8.4 - 10.2 mg/dL Final Color, Urine 07/12/2023 Colorless Colorless, Yellow Final Clarity, Urine 07/12/2023 Clear Clear Final Specific [place] 07/12/2023 1.013 1.005 - 1.025 Final pH, Urine 07/12/2023 5.0 5.0 - 7.0 Final Protein, Urine 07/12/2023 100 (A) Negative mg/dL Final Glucose, Urine 07/12/2023 >=500 (A) Negative mg/dL Final Ketones, Urine 07/12/2023 Negative Negative mg/dL Final Bilirubin, Urine 07/12/2023 Negative Negative Final Urobilinogen, Urine 07/12/2023 <2.0 <2.0 mg/dL Final Blood, Urine 07/12/2023 Small (A) Negative Final Nitrite, Urine 07/12/2023 Negative Negative Final Leukocyte Esterase, Urine 07/12/2023 Negative Negative Final WBCs, Urine 07/12/2023 1 0 - 5 /hpf Final RBCs, Urine 07/12/2023 2 0 - 3 /hpf Final Bacteria, Urine 07/12/2023 None Seen None Seen /hpf Final Squamous Epithelial 07/12/2023 <1 0 - 4 /hpf Final Mucus, Urine 07/12/2023 Rare None Seen, Rare /lpf Final Culture 07/12/2023 < 10,000 CFU/mL of normal urogenital microbiota Final Total Protein 07/12/2023 7.4 6.0 - 8.0 g/dL Final Albumin 07/12/2023 3.8 3.2 - 5.2 g/dL Final Total Bilirubin 07/12/2023 0.4 0.0 - 1.3 mg/dL Final Bilirubin, Direct 07/12/2023 <0.2 0.0 - 0.4 mg/dL Final Alkaline Phosphatase 07/12/2023 125 40 - 150 U/L Final AST 07/12/2023 12 0-35 U/L U/L Final ALT 07/12/2023 12 0-35 U/L U/L Final Lipase 07/12/2023 37 15 - 65 U/L Final WBC 07/12/2023 8.65 4.50 - 11.00 K/mcL Final RBC 07/12/2023 3.92 (L) 4.00 - 5.20 M/mcL Final Hemoglobin 07/12/2023 11.9 (L) 12.0 - 16.0 g/dL Final Hematocrit 07/12/2023 34.5 (L) 36.0 - 46.0 % Final MCV 07/12/2023 88.0 80.0 - 100.0 fL Final MCH 07/12/2023 30.4 26.0 - 34.0 pg Final MCHC 07/12/2023 34.5 31.0 - 37.0 g/dL Final Platelets 07/12/2023 276 150 - 400 K/mcL Final RDW - CV 07/12/2023 12.3 11.6 - 14.8 % Final MPV 07/12/2023 9.0 (L) 9.4 - 12.4 fL Final Neutrophils 07/12/2023 69.0 % Final Lymphocytes 07/12/2023 22.3 % Final Monocytes 07/12/2023 5.5 % Final Eosinophils 07/12/2023 2.1 % Final Basophils 07/12/2023 0.6 % Final IG Percent 07/12/2023 0.50 % Final Neutrophils Abs 07/12/2023 5.97 1.70 - 7.00 K/mcL Final Lymphocytes Abs 07/12/2023 1.93 0.90 - 4.00 K/mcL Final Monocytes Abs 07/12/2023 0.48 0.30 - 0.90 K/mcL Final Eosinophils Abs 07/12/2023 0.18 0.00 - 0.50 K/mcL Final Basophils Abs 07/12/2023 0.05 0.00 - 0.30 K/mcL Final IG Absolute 07/12/2023 0.04 0.00 - 0.30 K/mcL Final Nucleated RBC 07/12/2023 0.0 % Final Nucleated RBC Abs 07/12/2023 0.00 0.00 - 0.00 K/mcL Final Ventricular Rate 07/12/2023 101 BPM Final Atrial Rate 07/12/2023 101 BPM Final P-R Interval 07/12/2023 170 ms Final QRS Duration 07/12/2023 80 ms Final Q-T Interval 07/12/2023 336 ms Final QTC Calculation (Bezet) 07/12/2023 435 ms Final P [place] 07/12/2023 58 degrees Final R [place] 07/12/2023 12 degrees Final T [place] 07/12/2023 43 degrees Final Troponin T 07/12/2023 21 (CH) <=14 ng/L Final Troponin T Interpretation 07/12/2023 Possible acute cardiac injury. Final Chlamydia trachomatis Amplified RNA 07/12/2023 NEGATIVE Negative Final Neisseria gonorrhoeae Amplfied RNA 07/12/2023 NEGATIVE Negative Final Trichomonas vaginalis Amplified RNA 07/12/2023 NEGATIVE Negative Final Troponin T 07/12/2023 21 (CH) <=14 ng/L Final Delta Difference Troponin T 07/12/2023 0 < = -/+ 7 change ng/L Final Interp Troponin T Delta Change 07/12/2023 Probable non-acute cardiac injury or late presentation of acute injury. Final Admission on 07/08/2023, Discharged on 07/09/2023 Component Date Value Ref Range Status Color, Urine 07/08/2023 Yellow Colorless, Yellow Final Clarity, Urine 07/08/2023 Hazy (A) Clear Final Specific [place] 07/08/2023 1.018 1.005 - 1.025 Final pH, Urine 07/08/2023 5.0 5.0 - 7.0 Final Protein, Urine 07/08/2023 100 (A) Negative mg/dL Final Glucose, Urine 07/08/2023 150 (A) Negative mg/dL Final Ketones, Urine 07/08/2023 Negative Negative mg/dL Final Bilirubin, Urine 07/08/2023 Negative Negative Final Urobilinogen, Urine 07/08/2023 <2.0 <2.0 mg/dL Final Blood, Urine 07/08/2023 Small (A) Negative Final Nitrite, Urine 07/08/2023 Negative Negative Final Leukocyte Esterase, Urine 07/08/2023 Small (A) Negative Final WBCs, Urine 07/08/2023 19 (H) 0 - 5 /hpf Final RBCs, Urine 07/08/2023 3 0 - 3 /hpf Final Bacteria, Urine 07/08/2023 Many (A) None Seen /hpf Final Squamous Epithelial 07/08/2023 1 0 - 4 /hpf Final Amorphous Crystals 07/08/2023 Rare None Seen, Rare /hpf Final Mucus, Urine 07/08/2023 Rare None Seen, Rare /lpf Final Sodium 07/08/2023 139 135 - 145 mmol/L Final Potassium 07/08/2023 4.3 3.5 - 5.1 mmol/L Final Chloride 07/08/2023 104 98 - 108 mmol/L Final Bicarbonate 07/08/2023 24 21 - 32 mmol/L Final Anion Gap 07/08/2023 15 10 - 20 mmol/L Final Glucose 07/08/2023 392 (H) 65 - 99 mg/dL Final BUN 07/08/2023 23 8 - 25 mg/dL Final Creatinine 07/08/2023 1.21 (H) 0.40 - 1.10 mg/dL Final eGFR 07/08/2023 56 (L) >=60 mL/min/1.73 m2 Final BUN/Creatinine Ratio 07/08/2023 19.0 10.0 - 20.0 Final Calcium 07/08/2023 8.7 8.4 - 10.2 mg/dL Final Total Protein 07/08/2023 6.9 6.0 - 8.0 g/dL Final Albumin 07/08/2023 3.7 3.2 - 5.2 g/dL Final Total Bilirubin 07/08/2023 0.3 0.0 - 1.3 mg/dL Final Bilirubin, Direct 07/08/2023 <0.2 0.0 - 0.4 mg/dL Final Alkaline Phosphatase 07/08/2023 117 40 - 150 U/L Final AST 07/08/2023 11 0-35 U/L U/L Final ALT 07/08/2023 11 0-35 U/L U/L Final WBC 07/08/2023 8.96 4.50 - 11.00 K/mcL Final RBC 07/08/2023 3.84 (L) 4.00 - 5.20 M/mcL Final Hemoglobin 07/08/2023 11.8 (L) 12.0 - 16.0 g/dL Final Hematocrit 07/08/2023 35.1 (L) 36.0 - 46.0 % Final MCV 07/08/2023 91.4 80.0 - 100.0 fL Final MCH 07/08/2023 30.7 26.0 - 34.0 pg Final MCHC 07/08/2023 33.6 31.0 - 37.0 g/dL Final Platelets 07/08/2023 295 150 - 400 K/mcL Final RDW - CV 07/08/2023 12.8 11.6 - 14.8 % Final MPV 07/08/2023 8.9 (L) 9.4 - 12.4 fL Final Neutrophils 07/08/2023 71.4 % Final Lymphocytes 07/08/2023 20.6 % Final Monocytes 07/08/2023 4.9 % Final Eosinophils 07/08/2023 1.9 % Final Basophils 07/08/2023 0.6 % Final IG Percent 07/08/2023 0.60 % Final Neutrophils Abs 07/08/2023 6.40 1.70 - 7.00 K/mcL Final Lymphocytes Abs 07/08/2023 1.85 0.90 - 4.00 K/mcL Final Monocytes Abs 07/08/2023 0.44 0.30 - 0.90 K/mcL Final Eosinophils Abs 07/08/2023 0.17 0.00 - 0.50 K/mcL Final Basophils Abs 07/08/2023 0.05 0.00 - 0.30 K/mcL Final IG Absolute 07/08/2023 0.05 0.00 - 0.30 K/mcL Final Nucleated RBC 07/08/2023 0.0 % Final Nucleated RBC Abs 07/08/2023 0.00 0.00 - 0.00 K/mcL Final Culture 07/08/2023 >100,000 CFU/mL Escherichia coli (A) Final Admission on 06/29/2023, Discharged on 06/29/2023 Component Date Value Ref Range Status Sodium 06/29/2023 140 135 - 145 mmol/L Final Potassium 06/29/2023 3.9 3.5 - 5.1 mmol/L Final Chloride 06/29/2023 106 98 - 108 mmol/L Final Bicarbonate 06/29/2023 25 21 - 32 mmol/L Final Anion Gap 06/29/2023 13 10 - 20 mmol/L Final Glucose 06/29/2023 113 (H) 65 - 99 mg/dL Final BUN 06/29/2023 18 8 - 25 mg/dL Final Creatinine 06/29/2023 0.82 0.40 - 1.10 mg/dL Final eGFR 06/29/2023 89 >=60 mL/min/1.73 m2 Final BUN/Creatinine Ratio 06/29/2023 22.0 (H) 10.0 - 20.0 Final Total Protein 06/29/2023 7.2 6.0 - 8.0 g/dL Final Albumin 06/29/2023 3.7 3.2 - 5.2 g/dL Final Total Bilirubin 06/29/2023 0.4 0.0 - 1.3 mg/dL Final Bilirubin, Direct 06/29/2023 <0.2 0.0 - 0.4 mg/dL Final Alkaline Phosphatase 06/29/2023 118 40 - 150 U/L Final AST 06/29/2023 15 0-35 U/L U/L Final ALT 06/29/2023 7 0-35 U/L U/L Final Magnesium 06/29/2023 1.5 (L) 1.6 - 2.4 mg/dL Final WBC 06/29/2023 10.07 4.50 - 11.00 K/mcL Final RBC 06/29/2023 3.74 (L) 4.00 - 5.20 M/mcL Final Hemoglobin 06/29/2023 11.6 (L) 12.0 - 16.0 g/dL Final Hematocrit 06/29/2023 32.7 (L) 36.0 - 46.0 % Final MCV 06/29/2023 87.4 80.0 - 100.0 fL Final MCH 06/29/2023 31.0 26.0 - 34.0 pg Final MCHC 06/29/2023 35.5 31.0 - 37.0 g/dL Final Platelets 06/29/2023 313 150 - 400 K/mcL Final RDW - CV 06/29/2023 12.5 11.6 - 14.8 % Final MPV 06/29/2023 8.4 (L) 9.4 - 12.4 fL Final Neutrophils 06/29/2023 72.8 % Final Lymphocytes 06/29/2023 20.4 % Final Monocytes 06/29/2023 4.8 % Final Eosinophils 06/29/2023 1.1 % Final Basophils 06/29/2023 0.4 % Final IG Percent 06/29/2023 0.50 % Final Neutrophils Abs 06/29/2023 7.34 (H) 1.70 - 7.00 K/mcL Final Lymphocytes Abs 06/29/2023 2.05 0.90 - 4.00 K/mcL Final Monocytes Abs 06/29/2023 0.48 0.30 - 0.90 K/mcL Final Eosinophils Abs 06/29/2023 0.11 0.00 - 0.50 K/mcL Final Basophils Abs 06/29/2023 0.04 0.00 - 0.30 K/mcL Final IG Absolute 06/29/2023 0.05 0.00 - 0.30 K/mcL Final Nucleated RBC 06/29/2023 0.0 % Final Nucleated RBC Abs 06/29/2023 0.00 0.00 - 0.00 K/mcL Final Extra Tube 06/29/2023 Hold for add-ons. Final Extra Tube 06/29/2023 Hold for add-ons. Final Admission on 06/18/2023, Discharged on 06/19/2023 Component Date Value Ref Range Status Sodium 06/18/2023 136 135 - 145 mmol/L Final Potassium 06/18/2023 4.6 3.5 - 5.1 mmol/L Final Chloride 06/18/2023 102 98 - 108 mmol/L Final Bicarbonate 06/18/2023 23 21 - 32 mmol/L Final Anion Gap 06/18/2023 16 10 - 20 mmol/L Final Glucose 06/18/2023 327 (H) 65 - 99 mg/dL Final BUN 06/18/2023 25 8 - 25 mg/dL Final Creatinine 06/18/2023 1.01 0.40 - 1.10 mg/dL Final eGFR 06/18/2023 70 >=60 mL/min/1.73 m2 Final BUN/Creatinine Ratio 06/18/2023 24.8 (H) 10.0 - 20.0 Final Calcium 06/18/2023 8.7 8.4 - 10.2 mg/dL Final Troponin T 06/18/2023 20 (CH) <=14 ng/L Final Troponin T Interpretation 06/18/2023 Possible acute cardiac injury. Final Extra Tube 06/18/2023 Hold for add-ons. Final Lipase 06/18/2023 22 15 - 65 U/L Final Magnesium 06/18/2023 1.5 (L) 1.6 - 2.4 mg/dL Final Total Protein 06/18/2023 7.0 6.0 - 8.0 g/dL Final Albumin 06/18/2023 3.7 3.2 - 5.2 g/dL Final Total Bilirubin 06/18/2023 0.7 0.0 - 1.3 mg/dL Final Bilirubin, Direct 06/18/2023 0.2 0.0 - 0.4 mg/dL Final Alkaline Phosphatase 06/18/2023 121 40 - 150 U/L Final AST 06/18/2023 10 0-35 U/L U/L Final ALT 06/18/2023 10 0-35 U/L U/L Final SARS-CoV-2 06/18/2023 Not Detected Not Detected Final Influenza A 06/18/2023 Not Detected Not Detected Final Influenza B 06/18/2023 Not Detected Not Detected Final Color, Urine 06/18/2023 Yellow Colorless, Yellow Final Clarity, Urine 06/18/2023 Clear Clear Final Specific [place] 06/18/2023 1.018 1.005 - 1.025 Final pH, Urine 06/18/2023 5.0 5.0 - 7.0 Final Protein, Urine 06/18/2023 100 (A) Negative mg/dL Final Glucose, Urine 06/18/2023 >=500 (A) Negative mg/dL Final Ketones, Urine 06/18/2023 Trace (A) Negative mg/dL Final Bilirubin, Urine 06/18/2023 Negative Negative Final Urobilinogen, Urine 06/18/2023 <2.0 <2.0 mg/dL Final Blood, Urine 06/18/2023 Small (A) Negative Final Nitrite, Urine 06/18/2023 Positive (A) Negative Final Leukocyte Esterase, Urine 06/18/2023 Trace (A) Negative Final WBCs, Urine 06/18/2023 17 (H) 0 - 5 /hpf Final RBCs, Urine 06/18/2023 4 (H) 0 - 3 /hpf Final Bacteria, Urine 06/18/2023 Few (A) None Seen /hpf Final Squamous Epithelial 06/18/2023 3 0 - 4 /hpf Final Mucus, Urine 06/18/2023 Rare None Seen, Rare /lpf Final Culture 06/18/2023 > 10,000 CFU/mL mixture of normal urogenital microbiota Final Admission on 06/03/2023, Discharged on 06/03/2023 Component Date Value Ref Range Status Ventricular Rate 06/03/2023 112 BPM Final Atrial Rate 06/03/2023 112 BPM Final P-R Interval 06/03/2023 200 ms Final QRS Duration 06/03/2023 84 ms Final Q-T Interval 06/03/2023 310 ms Final QTC Calculation (Bezet) 06/03/2023 423 ms Final P [place] 06/03/2023 58 degrees Final R [place] 06/03/2023 14 degrees Final T [place] 06/03/2023 35 degrees Final Sodium 06/03/2023 135 135 - 145 mmol/L Final Potassium 06/03/2023 3.9 3.5 - 5.1 mmol/L Final Chloride 06/03/2023 102 98 - 108 mmol/L Final Bicarbonate 06/03/2023 23 21 - 32 mmol/L Final Anion Gap 06/03/2023 14 10 - 20 mmol/L Final Glucose 06/03/2023 273 (H) 65 - 99 mg/dL Final BUN 06/03/2023 24 8 - 25 mg/dL Final Creatinine 06/03/2023 0.95 0.40 - 1.10 mg/dL Final eGFR 06/03/2023 75 >=60 mL/min/1.73 m2 Final BUN/Creatinine Ratio 06/03/2023 25.3 (H) 10.0 - 20.0 Final Calcium 06/03/2023 8.5 8.4 - 10.2 mg/dL Final Troponin T 06/03/2023 20 (CH) <=14 ng/L Final Troponin T Interpretation 06/03/2023 Possible acute cardiac injury. Final Troponin T 06/03/2023 18 (CH) <=14 ng/L Final Delta Difference Troponin T 06/03/2023 -2 < = -/+ 7 change ng/L Final Interp Troponin T Delta Change 06/03/2023 Probable non-acute cardiac injury or late presentation of acute injury. Final WBC 06/03/2023 9.61 4.50 - 11.00 K/mcL Final RBC 06/03/2023 3.62 (L) 4.00 - 5.20 M/mcL Final Hemoglobin 06/03/2023 11.3 (L) 12.0 - 16.0 g/dL Final Hematocrit 06/03/2023 33.5 (L) 36.0 - 46.0 % Final MCV 06/03/2023 92.5 80.0 - 100.0 fL Final MCH 06/03/2023 31.2 26.0 - 34.0 pg Final MCHC 06/03/2023 33.7 31.0 - 37.0 g/dL Final Platelets 06/03/2023 281 150 - 400 K/mcL Final RDW - CV 06/03/2023 12.7 11.6 - 14.8 % Final MPV 06/03/2023 8.7 (L) 9.4 - 12.4 fL Final Neutrophils 06/03/2023 69.6 % Final Lymphocytes 06/03/2023 22.2 % Final Monocytes 06/03/2023 5.2 % Final Eosinophils 06/03/2023 2.0 % Final Basophils 06/03/2023 0.6 % Final IG Percent 06/03/2023 0.40 % Final Neutrophils Abs 06/03/2023 6.69 1.70 - 7.00 K/mcL Final Lymphocytes Abs 06/03/2023 2.13 0.90 - 4.00 K/mcL Final Monocytes Abs 06/03/2023 0.50 0.30 - 0.90 K/mcL Final Eosinophils Abs 06/03/2023 0.19 0.00 - 0.50 K/mcL Final Basophils Abs 06/03/2023 0.06 0.00 - 0.30 K/mcL Final IG Absolute 06/03/2023 0.04 0.00 - 0.30 K/mcL Final Nucleated RBC 06/03/2023 0.0 % Final Nucleated RBC Abs 06/03/2023 0.00 0.00 - 0.00 K/mcL Final Extra Tube 06/03/2023 Hold for add-ons. Final Extra Tube 06/03/2023 Hold for add-ons. Final Magnesium 06/03/2023 1.4 (L) 1.6 - 2.4 mg/dL Final Protime (PT) 06/03/2023 13.1 11.8 - 14.3 seconds Final INR 06/03/2023 1.0 0.8 - 1.1 Final APTT 06/03/2023 34 23 - 34 seconds Final Admission on 05/10/2023, Discharged on 05/13/2023 Component Date Value Ref Range Status Glucose 05/10/2023 204 (H) 65 - 99 mg/dL Final Glucose 05/10/2023 204 (A) 65 - 99 mg/dL Final Sodium 05/10/2023 136 135 - 145 mmol/L Final Potassium 05/10/2023 4.9 3.5 - 5.1 mmol/L Final Chloride 05/10/2023 106 98 - 108 mmol/L Final Bicarbonate 05/10/2023 22 21 - 32 mmol/L Final Anion Gap 05/10/2023 13 10 - 20 mmol/L Final Glucose 05/10/2023 198 (H) 65 - 99 mg/dL Final BUN 05/10/2023 26 (H) 8 - 25 mg/dL Final Creatinine 05/10/2023 0.98 0.40 - 1.10 mg/dL Final eGFR 05/10/2023 72 >=60 mL/min/1.73 m2 Final BUN/Creatinine Ratio 05/10/2023 26.5 (H) 10.0 - 20.0 Final Calcium 05/10/2023 9.2 8.4 - 10.2 mg/dL Final Troponin T 05/10/2023 20 (CH) <=14 ng/L Final Troponin T Interpretation 05/10/2023 Possible acute cardiac injury. Final Protime (PT) 05/10/2023 13.2 11.8 - 14.3 seconds Final INR 05/10/2023 1.0 0.8 - 1.1 Final WBC 05/10/2023 8.99 4.50 - 11.00 K/mcL Final RBC 05/10/2023 3.53 (L) 4.00 - 5.20 M/mcL Final Hemoglobin 05/10/2023 11.0 (L) 12.0 - 16.0 g/dL Final Hematocrit 05/10/2023 32.4 (L) 36.0 - 46.0 % Final MCV 05/10/2023 91.8 80.0 - 100.0 fL Final MCH 05/10/2023 31.2 26.0 - 34.0 pg Final MCHC 05/10/2023 34.0 31.0 - 37.0 g/dL Final Platelets 05/10/2023 331 150 - 400 K/mcL Final RDW - CV 05/10/2023 13.6 11.6 - 14.8 % Final MPV 05/10/2023 8.4 (L) 9.4 - 12.4 fL Final Neutrophils 05/10/2023 73.2 % Final Lymphocytes 05/10/2023 17.9 % Final Monocytes 05/10/2023 6.0 % Final Eosinophils 05/10/2023 1.7 % Final Basophils 05/10/2023 0.8 % Final IG Percent 05/10/2023 0.40 % Final Neutrophils Abs 05/10/2023 6.58 1.70 - 7.00 K/mcL Final Lymphocytes Abs 05/10/2023 1.61 0.90 - 4.00 K/mcL Final Monocytes Abs 05/10/2023 0.54 0.30 - 0.90 K/mcL Final Eosinophils Abs 05/10/2023 0.15 0.00 - 0.50 K/mcL Final Basophils Abs 05/10/2023 0.07 0.00 - 0.30 K/mcL Final IG Absolute 05/10/2023 0.04 0.00 - 0.30 K/mcL Final Nucleated RBC 05/10/2023 0.0 % Final Nucleated RBC Abs 05/10/2023 0.00 0.00 - 0.00 K/mcL Final Ventricular Rate 05/10/2023 93 BPM Final Atrial Rate 05/10/2023 93 BPM Final P-R Interval 05/10/2023 178 ms Final QRS Duration 05/10/2023 82 ms Final Q-T Interval 05/10/2023 344 ms Final QTC Calculation (Bezet) 05/10/2023 427 ms Final P [place] 05/10/2023 54 degrees Final T [place] 05/10/2023 30 degrees Final Extra Tube 05/10/2023 Hold for add-ons. Final APTT 05/10/2023 35 (H) 23 - 34 seconds Final Glucose 05/10/2023 158 (H) 65 - 99 mg/dL Final Glucose 05/10/2023 291 (H) 65 - 99 mg/dL Final Troponin T 05/10/2023 21 (CH) <=14 ng/L Final Delta Difference Troponin T 05/10/2023 1 < = -/+ 7 change ng/L Final Interp Troponin T Delta Change 05/10/2023 Probable non-acute cardiac injury or late presentation of acute injury. Final Troponin T 05/11/2023 23 (CH) <=14 ng/L Final Troponin T Interpretation 05/11/2023 Possible acute cardiac injury. Final Hemoglobin A1C 05/10/2023 8.2 (H) 4.2 - 5.6 % Final Estimated Average Glucose 05/10/2023 189 (H) 74 - 114 mg/dL Final Cholesterol 05/11/2023 136 100 - 199 mg/dL Final Triglycerides 05/11/2023 164 (H) 30 - 150 mg/dL Final HDL 05/11/2023 33 (L) 40 - 59 mg/dL Final Chol/HDL Ratio 05/11/2023 4.1 ratio Final LDL Calculated 05/11/2023 70 10 - 130 mg/dL Final Non HDL Cholesterol 05/11/2023 103 mg/dL Final Glucose 05/11/2023 230 (H) 65 - 99 mg/dL Final TSH 05/11/2023 1.97 0.27 - 4.20 mcIU/mL Final B12 05/10/2023 324 232 - 1,245 pg/mL Final Folate 05/10/2023 6.0 3.1 - 17.5 ng/mL Final Color, Urine 05/11/2023 Yellow Colorless, Yellow Final Clarity, Urine 05/11/2023 Clear Clear Final Specific [place] 05/11/2023 1.017 1.005 - 1.025 Final pH, Urine 05/11/2023 5.0 5.0 - 7.0 Final Protein, Urine 05/11/2023 30 (A) Negative mg/dL Final Glucose, Urine 05/11/2023 Negative Negative mg/dL Final Ketones, Urine 05/11/2023 Negative Negative mg/dL Final Bilirubin, Urine 05/11/2023 Negative Negative Final Urobilinogen, Urine 05/11/2023 <2.0 <2.0 mg/dL Final Blood, Urine 05/11/2023 Small (A) Negative Final Nitrite, Urine 05/11/2023 Negative Negative Final Leukocyte Esterase, Urine 05/11/2023 Negative Negative Final WBCs, Urine 05/11/2023 <1 0 - 5 /hpf Final RBCs, Urine 05/11/2023 1 0 - 3 /hpf Final Bacteria, Urine 05/11/2023 None Seen None Seen /hpf Final Squamous Epithelial 05/11/2023 5 (H) 0 - 4 /hpf Final Mucus, Urine 05/11/2023 Rare None Seen, Rare /lpf Final Glucose 05/11/2023 224 (H) 65 - 99 mg/dL Final Glucose 05/11/2023 166 (H) 65 - 99 mg/dL Final Glucose 05/11/2023 319 (H) 65 - 99 mg/dL Final Glucose 05/11/2023 300 (H) 65 - 99 mg/dL Final Glucose 05/12/2023 303 (H) 65 - 99 mg/dL Final Glucose 05/12/2023 152 (H) 65 - 99 mg/dL Final Glucose 05/12/2023 248 (H) 65 - 99 mg/dL Final Glucose 05/12/2023 414 (CH) 65 - 99 mg/dL Final Glucose 05/12/2023 378 (H) 65 - 99 mg/dL Final Glucose 05/13/2023 303 (H) 65 - 99 mg/dL Final Glucose 05/13/2023 260 (H) 65 - 99 mg/dL Final Glucose 05/13/2023 295 (H) 65 - 99 mg/dL Final Admission on 04/28/2023, Discharged on 04/28/2023 Component Date Value Ref Range Status Glucose 04/28/2023 112 (A) 65 - 99 mg/dL Final Glucose 04/28/2023 112 (H) 65 - 99 mg/dL Final Extra Tube 04/28/2023 Hold for add-ons. Final Extra Tube 04/28/2023 Hold for add-ons. Final Extra Tube 04/28/2023 Hold for add-ons. Final Extra Tube 04/28/2023 Hold for add-ons. Final Color, Urine 04/28/2023 Yellow Colorless, Yellow Final Clarity, Urine 04/28/2023 Hazy (A) Clear Final Specific [place] 04/28/2023 1.022 1.005 - 1.025 Final pH, Urine 04/28/2023 5.0 5.0 - 7.0 Final Protein, Urine 04/28/2023 >=500 (A) Negative mg/dL Final Glucose, Urine 04/28/2023 Negative Negative mg/dL Final Ketones, Urine 04/28/2023 Negative Negative mg/dL Final Bilirubin, Urine 04/28/2023 Negative Negative Final Urobilinogen, Urine 04/28/2023 <2.0 <2.0 mg/dL Final Blood, Urine 04/28/2023 Negative Negative Final Nitrite, Urine 04/28/2023 Positive (A) Negative Final Leukocyte Esterase, Urine 04/28/2023 Negative Negative Final WBCs, Urine 04/28/2023 10 (H) 0 - 5 /hpf Final RBCs, Urine 04/28/2023 6 (H) 0 - 3 /hpf Final Bacteria, Urine 04/28/2023 Few (A) None Seen /hpf Final WBC Clumps, Urine 04/28/2023 Rare (A) None Seen /hpf Final Squamous Epithelial 04/28/2023 2 0 - 4 /hpf Final Culture 04/28/2023 >100,000 CFU/mL Escherichia coli (A) Final Sodium 04/28/2023 141 135 - 145 mmol/L Final Potassium 04/28/2023 3.7 3.5 - 5.1 mmol/L Final Chloride 04/28/2023 106 98 - 108 mmol/L Final Bicarbonate 04/28/2023 25 21 - 32 mmol/L Final Anion Gap 04/28/2023 14 10 - 20 mmol/L Final Glucose 04/28/2023 76 65 - 99 mg/dL Final BUN 04/28/2023 14 8 - 25 mg/dL Final Creatinine 04/28/2023 0.89 0.40 - 1.10 mg/dL Final eGFR 04/28/2023 81 >=60 mL/min/1.73 m2 Final BUN/Creatinine Ratio 04/28/2023 15.7 10.0 - 20.0 Final Calcium 04/28/2023 8.8 8.4 - 10.2 mg/dL Final Total Protein 04/28/2023 7.1 6.0 - 8.0 g/dL Final Albumin 04/28/2023 3.7 3.2 - 5.2 g/dL Final Total Bilirubin 04/28/2023 0.3 0.0 - 1.3 mg/dL Final Bilirubin, Direct 04/28/2023 <0.2 0.0 - 0.4 mg/dL Final Alkaline Phosphatase 04/28/2023 114 40 - 150 U/L Final AST 04/28/2023 14 0-35 U/L U/L Final ALT 04/28/2023 16 0-35 U/L U/L Final Lipase 04/28/2023 21 15 - 65 U/L Final WBC 04/28/2023 10.03 4.50 - 11.00 K/mcL Final RBC 04/28/2023 3.67 (L) 4.00 - 5.20 M/mcL Final Hemoglobin 04/28/2023 11.4 (L) 12.0 - 16.0 g/dL Final Hematocrit 04/28/2023 33.8 (L) 36.0 - 46.0 % Final MCV 04/28/2023 92.1 80.0 - 100.0 fL Final MCH 04/28/2023 31.1 26.0 - 34.0 pg Final MCHC 04/28/2023 33.7 31.0 - 37.0 g/dL Final Platelets 04/28/2023 304 150 - 400 K/mcL Final RDW - CV 04/28/2023 13.2 11.6 - 14.8 % Final MPV 04/28/2023 8.8 (L) 9.4 - 12.4 fL Final Neutrophils 04/28/2023 72.1 % Final Lymphocytes 04/28/2023 19.1 % Final Monocytes 04/28/2023 5.9 % Final Eosinophils 04/28/2023 1.5 % Final Basophils 04/28/2023 0.7 % Final IG Percent 04/28/2023 0.70 % Final Neutrophils Abs 04/28/2023 7.23 (H) 1.70 - 7.00 K/mcL Final Lymphocytes Abs 04/28/2023 1.92 0.90 - 4.00 K/mcL Final Monocytes Abs 04/28/2023 0.59 0.30 - 0.90 K/mcL Final Eosinophils Abs 04/28/2023 0.15 0.00 - 0.50 K/mcL Final Basophils Abs 04/28/2023 0.07 0.00 - 0.30 K/mcL Final IG Absolute 04/28/2023 0.07 0.00 - 0.30 K/mcL Final Nucleated RBC 04/28/2023 0.0 % Final Nucleated RBC Abs 04/28/2023 0.00 0.00 - 0.00 K/mcL Final Glucose 04/28/2023 66 65 - 99 mg/dL Final Admission on 04/26/2023, Discharged on 04/27/2023 Component Date Value Ref Range Status Ventricular Rate 04/26/2023 101 BPM Final Atrial Rate 04/26/2023 101 BPM Final P-R Interval 04/26/2023 184 ms Final QRS Duration 04/26/2023 82 ms Final Q-T Interval 04/26/2023 342 ms Final QTC Calculation (Bezet) 04/26/2023 443 ms Final P [place] 04/26/2023 62 degrees Final R [place] 04/26/2023 76 degrees Final T [place] 04/26/2023 -7 degrees Final Sodium 04/26/2023 139 135 - 145 mmol/L Final Potassium 04/26/2023 3.5 3.5 - 5.1 mmol/L Final Chloride 04/26/2023 104 98 - 108 mmol/L Final Bicarbonate 04/26/2023 26 21 - 32 mmol/L Final Anion Gap 04/26/2023 13 10 - 20 mmol/L Final Glucose 04/26/2023 97 65 - 99 mg/dL Final BUN 04/26/2023 19 8 - 25 mg/dL Final Creatinine 04/26/2023 1.06 0.40 - 1.10 mg/dL Final eGFR 04/26/2023 66 >=60 mL/min/1.73 m2 Final BUN/Creatinine Ratio 04/26/2023 17.9 10.0 - 20.0 Final Calcium 04/26/2023 8.9 8.4 - 10.2 mg/dL Final Troponin T 04/26/2023 15 (CH) <=14 ng/L Final Troponin T Interpretation 04/26/2023 Possible acute cardiac injury. Final Troponin T 04/26/2023 17 (CH) <=14 ng/L Final Delta Difference Troponin T 04/26/2023 2 < = -/+ 7 change ng/L Final Interp Troponin T Delta Change 04/26/2023 Probable non-acute cardiac injury or late presentation of acute injury. Final WBC 04/26/2023 9.96 4.50 - 11.00 K/mcL Final RBC 04/26/2023 3.79 (L) 4.00 - 5.20 M/mcL Final Hemoglobin 04/26/2023 11.6 (L) 12.0 - 16.0 g/dL Final Hematocrit 04/26/2023 34.6 (L) 36.0 - 46.0 % Final MCV 04/26/2023 91.3 80.0 - 100.0 fL Final MCH 04/26/2023 30.6 26.0 - 34.0 pg Final MCHC 04/26/2023 33.5 31.0 - 37.0 g/dL Final Platelets 04/26/2023 299 150 - 400 K/mcL Final RDW - CV 04/26/2023 13.2 11.6 - 14.8 % Final MPV 04/26/2023 8.7 (L) 9.4 - 12.4 fL Final Neutrophils 04/26/2023 71.8 % Final Lymphocytes 04/26/2023 19.6 % Final Monocytes 04/26/2023 5.7 % Final Eosinophils 04/26/2023 1.6 % Final Basophils 04/26/2023 0.8 % Final IG Percent 04/26/2023 0.50 % Final Neutrophils Abs 04/26/2023 7.15 (H) 1.70 - 7.00 K/mcL Final Lymphocytes Abs 04/26/2023 1.95 0.90 - 4.00 K/mcL Final Monocytes Abs 04/26/2023 0.57 0.30 - 0.90 K/mcL Final Eosinophils Abs 04/26/2023 0.16 0.00 - 0.50 K/mcL Final Basophils Abs 04/26/2023 0.08 0.00 - 0.30 K/mcL Final IG Absolute 04/26/2023 0.05 0.00 - 0.30 K/mcL Final Nucleated RBC 04/26/2023 0.0 % Final Nucleated RBC Abs 04/26/2023 0.00 0.00 - 0.00 K/mcL Final Extra Tube 04/26/2023 Hold for add-ons. Final Extra Tube 04/26/2023 Hold for add-ons. Final SARS-CoV-2 04/26/2023 Not Detected Not Detected Final Influenza A 04/26/2023 Not Detected Not Detected Final Influenza B 04/26/2023 Not Detected Not Detected Final Total Protein 04/26/2023 6.5 6.0 - 8.0 g/dL Final Albumin 04/26/2023 3.6 3.2 - 5.2 g/dL Final Total Bilirubin 04/26/2023 0.3 0.0 - 1.3 mg/dL Final Bilirubin, Direct 04/26/2023 <0.2 0.0 - 0.4 mg/dL Final Alkaline Phosphatase 04/26/2023 112 40 - 150 U/L Final AST 04/26/2023 14 0-35 U/L U/L Final ALT 04/26/2023 11 0-35 U/L U/L Final Lipase 04/26/2023 22 15 - 65 U/L Final D-Dimer 04/26/2023 0.57 (H) 0.27 - 0.49 mcg/mL FEU Final There may be more visits with results that are not included. documented in this encounter [facility] 09-16-2023 Telephone encounter Note Attempted to contact patient to notify of medication adjustments. [facility] 09-16-2023 Miscellaneous Notes Attempted to contact patient to notify of medication adjustments. Yes we can have her increase the dose of Celexa to 20mg daily and for sleep adjust her nortryptlline to 50mg nightly,but she needs to discuss with her pcp as well.We can give her zyprexa 5mg;half tab twice a day as needed for anxiety/agitation. Patient called stating that she lost her mother last week and wants something to help with her nerves. Not sleeping well. Nausea from anxiety. [facility] [address] documented in this encounter [facility] 09-15-2023 Telephone encounter Note Yes we can have her increase the dose of Celexa to 20mg daily and for sleep adjust her nortryptlline to 50mg nightly,but she needs to discuss with her pcp as well.We can give her zyprexa 5mg;half tab twice a day as needed for anxiety/agitation. [facility] 09-15-2023 Telephone encounter Note Patient called stating that she lost her mother last week and wants something to help with her nerves. Not sleeping well. Nausea from anxiety. [facility] [address] 09-10-2023 History of Present illness Narrative Hospital bed mattress order faxed to [facility]. Confirmation received. documented in this encounter [facility] 09-03-2023 History of Present illness Narrative Addie Organ 48 y.o. HPI WITH ASSESSMENT AND PLAN (dictation): Patient was seen and examined in the office for her routine 4-month followup. Patient states her mother has been hospitalized for multiple acute issues so she has been visiting her frequently [place]. Patient states her mom has been diagnosed with dementia and pulmonary fibrosis, and possibly requires a lung transplant so she would like this documented in her chart to make sure that we know this for her family history. Patient states she continues to have headaches despite use of nortriptyline which was started by Dr. Bhat. Patient states she continues to have muscle spasms which are worse at nighttime along with chronic pain, asking for an increase in her tizanidine to 12 mg to take all in 1 dose, and I discouraged the patient from this as she could have significant side effects including fatigue or syncope. I will plan to refer patient to Pain Management. Patient asking for a different mattress for her hospital bed. Patient states she continues to be incontinent of urine and states she has foul-smelling urine. She was referred to Urology, however, she has not yet scheduled an appointment with them. Also had a urinalysis ordered 07/30 which showed moderate blood, so I encouraged her to follow up with them. Otherwise patient denies acute concerns including chest pain, shortness of breath, nausea, vomiting, or abdominal pain. Patient's mammogram was ordered in April so she needs to call to schedule this. Patient's diabetic foot exam, will be due March 2024. [address] did [address] a referral to Ophthalmology at this visit so she can complete her diabetic eye exam. Patient is not interested in colorectal cancer screening at this time. Encouraged patient to return to office in 4 weeks for next scheduled followup for blood pressure recheck. ASSESSMENT AND PLAN 1. Chronic pain syndrome. Ordered a new mattress for patient's hospital bed. Referral to Pain Medicine placed. 2. Muscle spasms of both lower extremities. Referral to Pain Medicine. Continue tizanidine 4 mg twice daily as needed. Discouraged patient from taking both of these together for 1 dose due to issues with possible lethargy. 3. Urinary incontinence, ongoing issue. Did have UA in July which showed moderate blood. Encouraged patient to call Urology to get rescheduled. 4. Chronic non intractable headaches, not improved with nortriptyline 25 mg nightly. Patient has upcoming appointment with Neurology, Dr. Campos, on 09/15 and I encouraged her to discuss this with them. 5. Chronic obstructive pulmonary disease, no recent exacerbations. Patient asking for pulse ox at home. Continue albuterol inhaler as needed. 6. Type 2 diabetes mellitus with most recent A1c 05/16 of 8.2. Repeat ordered as well as a urine microalbumin. Up to date with her diabetic foot exams. I did refer her to Ophthalmology for a diabetic eye exam. Patient has upcoming appointment with Endocrinology, Dr. Sanchez, in November. Continue insulin, lispro. 7. Diabetic peripheral neuropathy per history. Continue followup with Neurology with Dr. Campos as scheduled. Patient was previously on Lyrica, however, instructed her we do not prescribe this. 8. Diabetic ulcer of right foot, follows with Podiatry. Patient has insulin pump. 9. Hypothyroidism. Continue levothyroxine 75 mcg once daily. 10. Primary hypertension, uncontrolled in the office today with blood pressure 164/95. Increase lisinopril to 30 mg once daily and will repeat BMP in 1 week. Continue metoprolol-XL 25 mg once daily. Patient to return in 1 month for blood pressure recheck. 11. Hypercholesterolemia. Continue atorvastatin 40 mg nightly. 12. Placement of cardiac pacemaker. Has been referred to Cardiology to establish care. 13. Seizures per history. Continue Keppra 1000 mg twice daily. Has upcoming appointment with Dr. Campos of Neurology. 14. Bipolar disorder. Follows with Dr. Woods of Psychiatry. Continue medications as prescribed. 15. Acid reflux. Continue Protonix 40 mg once daily. 16. Vitamin D deficiency. Continue supplementation. 17. Vitamin B12 deficiency. Continue supplementation. 18. Cigarette nicotine dependence. Encouraged cessation as able. I am managing and treating Addie Jean Baptiste's complex chronic condition(s) serving as the focal point for the patient s care for consistency and continuity over time. VISIT SUMMARY: ICD-10-CM ICD-9-CM 1. Chronic pain syndrome G89.4 338.4 Ambulatory referral to Pain Medicine [facility] Bed 2. Muscle spasms of both lower extremities M62.838 728.85 Ambulatory referral to Pain Medicine 3. Urinary incontinence, unspecified type R32 788.30 4. Chronic nonintractable headache, unspecified headache type R51.9 784.0 G89.29 5. Chronic obstructive pulmonary disease, unspecified COPD type ([facility]) J44.9 496 Miscellaneous DME Equipment [facility] Bed 6. Type 2 diabetes mellitus with diabetic polyneuropathy, with long-term current use of insulin ([facility]) E11.42 250.60 FreeStyle Zeinab 2 Sensor Kit Z79.4 357.2 Hemoglobin A1c V58.67 HM URINE MICROALBUMIN Ambulatory referral to Ophthalmology 7. Diabetic peripheral neuropathy ([facility]) E11.42 250.60 357.2 8. Diabetic ulcer of right foot associated with type 2 diabetes mellitus, unspecified part of foot, unspecified ulcer stage ([facility]) E11.621 250.80 L97.519 707.15 9. Hypothyroidism, unspecified type E03.9 244.9 10. Primary hypertension I10 401.9 lisinopriL (PRINIVIL,ZESTRIL) 30 MG tablet Basic Metabolic Panel 11. Hypercholesterolemia E78.00 272.0 12. S/P placement of cardiac pacemaker Z95.0 V45.01 13. Seizures ([facility]) R56.9 780.39 14. Bipolar 1 disorder ([facility]) F31.9 296.7 15. Gastroesophageal reflux disease, unspecified whether esophagitis present K21.9 530.81 16. Vitamin D deficiency E55.9 268.9 Vitamin D, Total, 25-OH ergocalciferol (Vitamin D2) 1,250 mcg (50,000 unit) capsule 17. Vitamin B12 deficiency E53.8 266.2 cyanocobalamin (B-12) 1000 MCG tablet 18. Cigarette nicotine dependence without complication F17.210 305.1 Condition and plan discussed with patient in detail, patient agrees with plan. Risk, benefits, and side effects of medicines discussed with the patient, patient agrees with plan. Most recent laboratory (CBC, Hepatic, Renal, Thyroid and Lipid panel) were reviewed, addressed and were found to be satisfactory other than what has been noted above in the A&P. Most recent radiology imaging, and other study results were reviewed and discussed with patient. For any new medications prescribed today, patient was educated about indications for the medication, how to take the medication and potential side effects of the medications. Patient to return to office: Return in about 4 weeks (around 10/01/2023) for Next scheduled follow up. The following portions of the patient's history were reviewed and updated as appropriate: allergies, current medications, past family history, past medical history, past social history, past surgical history and problem list. Past History Past Medical History: Diagnosis Date Anxiety Bipolar 1 disorder (HCC) Bipolar disorder (HCC) Chronic back pain Coronary artery disease Depression Diabetes mellitus (HCC) Hypertension MRSA (methicillin resistant Staphylococcus aureus) Pacemaker Seizures (HCC) Stroke (HCC) Past Surgical History: Procedure Laterality Date CHOLECYSTECTOMY FOOT SURGERY HYSTERECTOMY ORTHOPEDIC SURGERY left foot surgery PACEMAKER INSERTION Current Outpatient Medications Medication Sig Dispense Refill albuterol 90 mcg/actuation inhaler Inhale 1 (one) puff every 4 to 6 hours as needed for shortness of breath or wheezing . atorvastatin (LIPITOR) 40 MG tablet Take 1 (one) tablet (40 mg total) by mouth nightly . 30 tablet 0 chlorthalidone (HYGROTON) 25 MG tablet Take 1 (one) tablet (25 mg total) by mouth daily . 90 tablet 1 citalopram (CELEXA) 10 MG tablet Take half tab daily for 1 week and then 1 tab thereafter . 30 tablet 1 insulin lispro (AdmeLOG,HumaLOG) 100 unit/mL injection Inject up to 150 units once daily via pump . 10 mL 1 levETIRAcetam (KEPPRA) 1000 MG tablet Take 1 (one) tablet (1,000 mg total) by mouth 2 (two) times a day . 180 tablet 1 levothyroxine (SYNTHROID, LEVOTHROID) 75 MCG tablet Take 1 (one) tablet (75 mcg total) by mouth once daily . 30 tablet 0 metoprolol succinate (TOPROL-XL) 25 MG 24 hr tablet Take 1 (one) tablet (25 mg total) by mouth daily . 90 tablet 1 nortriptyline (PAMELOR) 25 MG capsule Take 1 (one) capsule (25 mg total) by mouth nightly . 90 capsule 1 ondansetron (ZOFRAN-ODT) 4 MG disintegrating tablet Dissolve 1 (one) tablet (4 mg total) on top of tongue every 8 (eight) hours as needed for nausea . 10 tablet 0 pantoprazole (PROTONIX) 40 MG tablet Take 1 (one) tablet (40 mg total) by mouth daily . 30 tablet 0 promethazine (PHENERGAN) 25 MG tablet Take 1 (one) tablet (25 mg total) by mouth every 6 (six) hours as needed for nausea . 10 tablet 0 QUEtiapine (SEROQUEL) 400 MG tablet Take 2 (two) tablets (800 mg total) by mouth nightly . 60 tablet 2 cyanocobalamin (B-12) 1000 MCG tablet Take 1 (one) tablet (1,000 mcg total) by mouth daily Reasons: [facility]. 90 tablet 1 ergocalciferol (Vitamin D2) 1,250 mcg (50,000 unit) capsule Take 1 (one) capsule (50,000 Units total) by mouth once a week . 12 capsule 1 FreeStyle Zeinab 2 [place] Misc Inject 1 each under the skin 2 (two) times a day . FreeStyle Zeinab 2 Sensor Kit 1 kit by Miscellaneous route every 14 (fourteen) days . 2 kit 1 lisinopriL (PRINIVIL,ZESTRIL) 30 MG tablet Take 1 (one) tablet (30 mg total) by mouth daily . 90 tablet 1 Omnipod Insulin Refill Crtg tiZANidine (ZANAFLEX) 4 MG tablet Take 1 (one) tablet (4 mg total) by mouth 2 (two) times a day as needed for muscle spasms . 60 tablet 0 No current facility-administered medications for this visit. Allergies Allergen Reactions Iodides Other (See Comments) Renal compromise Ketorolac Hives, Other (See Comments), Rash and GI Intolerance Messes with seizures Unsure of reaction Tramadol Hives, Rash, Other (See Comments) and GI Intolerance Codeine Other reaction(s): Aggressive Behavior Propoxyphene N-Acetaminophen GI Intolerance Adhesive Itching Compazine [Prochlorperazine] Other (See Comments) She reports Compazine made her feel anxious and grumpy Ct: Iodinated Contrast- Oral And Iv Dye Other (See Comments) Shuts my kidneys down Fentanyl Ibuprofen Other (See Comments) shuts kidney down Latex Dermatitis Linezolid Nausea And Vomiting and GI Intolerance Lorazepam Other (See Comments) Nsaids (Non-Steroidal Anti-Inflammatory Drug) shuts my kidney's down Vancomycin Other (See Comments) Shuts kidney down Propoxyphene GI Intolerance Family History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 Negative for flank pain. Musculoskeletal: Positive for myalgias. Negative for gait problem and joint swelling. Skin: Positive for wound. Negative for rash. Neurological: Positive for seizures and numbness. Negative for dizziness, facial asymmetry and headaches. Psychiatric/Behavioral: Positive for dysphoric mood and sleep disturbance. Negative for agitation and behavioral problems. All other systems reviewed and are negative. PHYSICAL EXAM : Vitals: 05/06/23 1131 05/06/23 1140 BP: (!) 166/118 (!) 182/102 BP Location: Right arm Left arm Patient Position: Sitting Sitting BP Cuff Size: Adult Adult Pulse: 94 Temp: (!) 96.3 F (35.7 C) TempSrc: Infrared SpO2: 98% Weight: 118.4 kg (261 lb 1.6 oz) Physical Exam Vitals and nursing note reviewed. Constitutional: General: She is not in acute distress. Appearance: Normal appearance. She is not toxic-appearing or diaphoretic. HENT: Head: Normocephalic and atraumatic. Eyes: Extraocular Movements: Extraocular movements intact. Conjunctiva/sclera: Conjunctivae normal. Neck: Thyroid: No thyromegaly. Cardiovascular: Rate and Rhythm: Normal rate and regular rhythm. Heart sounds: No murmur heard. Pulmonary: Effort: Pulmonary effort is normal. Breath sounds: Normal breath sounds. No wheezing. Abdominal: General: Abdomen is flat. Palpations: Abdomen is soft. Musculoskeletal: Cervical back: Neck supple. Skin: General: Skin is warm and dry. Neurological: General: No focal deficit present. Mental Status: She is alert and oriented to person, place, and time. Mental status is at baseline. 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 [facility] 04-27-2023 Miscellaneous Notes NO OT services provided this date due to patient refused due to illness. documented in this encounter [facility] 03-30-2023 Miscellaneous Notes Pt port de-accessed per Dr order without complication. No bleeding, or sign of infection present. This nurse read over AVS with patient, who had no questions at this time. Pt declined staff transport via wheelchair for discharge. Pt daughter- in- law transported via wheelchair for discharge. Pt discharged in stable condition. [id number] ENCOUNTER FOR HOME MEDICAL EQUIPMENT PATIENT: Addie Jean Baptiste : 1975 Statement of Care: I certify that Addie Jean Baptiste is under my care and that I had a [id number] encounter with this patient today to evaluate and discuss the need for home medical equipment. I certify that based on the findings of this evaluation, which included but was not limited to the [id number] requirements, the following home medical equipment is medically necessary: Transport wheelchair for the treatment of mobility limitations to enable participation in mobility-related activities of daily living (MRADL) in the home. Based on the current evaluation, patient can safely use prescribed equipment to perform mobility-related activities of daily living (MRADL) in the home.. Signed by: Harshad Rizzo MD on 03/30/2023 Problem: Actual or potential alteration in health Goal: Absence of healthcare acquired conditions Outcome: Partially Met Goal: Knowledge of Interdisciplinary Plan of Care Outcome: Partially Met Goal: Knowledge of Enviroment Outcome: Partially Met Problem: Pain Goal: Manage acute pain Outcome: Partially Met Goal: Manage chronic pain Outcome: Partially Met Goal: Reduced pain sensation Outcome: Partially Met Goal: Achievement of comfort function goal Outcome: Partially Met documented in this encounter [facility] 03-30-2023 Note Formatting of this n ote might be different from the original. Pt port de-accessed per Dr order without complication. No bleeding, or sign of infection present. This nurse read over AVS with patient, who had no questions at this time. Pt declined staff transport via wheelchair for discharge. Pt daughter- in- law transported via wheelchair for discharge. Pt discharged in stable condition. [facility] 03-30-2023 Hospital course Narrative [facility] DISCHARGE SUMMARY Addie Jean Baptiste Admitted: 03/29/2023 Discharge Date: 03/30/23 PCP Handoff Recommended Outpatient Testing None Results Pending At Discharge None Clinical Summary Addie Jean Baptiste is a 47 y.o. female patient of System, Provider Not In with history of T2DM, seizure disorder, HTN, and chronic back pain presented to [facility] with chest pain. Assessment and Plan Atypical chest pain, resolved Elevated troponin, chronic P/w 3 day history of chest pain that was intermittent CBC and BMP unremarkable Troponins negative EKG: sinus tachycardia, no new ST abnormality CXR: no acute process 2D echo in 01/2023 w LVEF 50%, normal diastolic function Last stress MPI 01/2023: no inducible ischemia TSH normal Cont home ASA, BB, ACEi/ARB, statin PPI Follow-up with cardiology as outpatient T2DM, uncontrolled Diabetic peripheral neuropathy Last A1c 10.1% in 01/2023 Continue home regimen Medication adherence encouraged Seizure disorder Continue home keppra Morbid obesity Body mass index is 45.73 kg/m . Discussed dietary and lifestyle modifications Discharge Medications Discharge Medications Medications To Continue Details fluticasone propion-salmeteroL 250-50 mcg/dose diskus inhaler Commonly known as: ADVAIR DISKUS Inhale 1 (one) puff 2 (two) times a day . insulin glargine 100 unit/mL (3 mL) Inpn Commonly known as: LANTUS SOLOSTAR/BASAGLAR KWIKPEN Inject 25 (twenty five) Units under the skin nightly . Quantity: 7.5 mL insulin lispro 100 unit/mL injection Commonly known as: AdmeLOG,HumaLOG Inject under the skin See Admin Instructions Inject up to 150 units once daily via pump . levETIRAcetam 1000 MG tablet Commonly known as: KEPPRA Take 1 (one) tablet (1,000 mg total) by mouth 2 (two) times a day . Quantity: 180 tablet levothyroxine 75 MCG tablet Commonly known as: SYNTHROID, LEVOTHROID Take 1 (one) tablet (75 mcg total) by mouth once daily . Quantity: 30 tablet metoprolol succinate 25 MG 24 hr tablet Commonly known as: TOPROL-XL Take 1 (one) tablet (25 mg total) by mouth daily . Quantity: 30 tablet omeprazole 40 MG capsule Commonly known as: PRILOSEC Take 1 (one) capsule (40 mg total) by mouth 2 (two) times a day . Quantity: 60 capsule Omnipod Classic Pods (Gen 3) Crtg Generic drug: insulin pump cart,cont inf,RF pregabalin 25 MG capsule Commonly known as: LYRICA Take 3 (three) capsules (75 mg total) by mouth 2 (two) times a day for 10 days . Quantity: 60 capsule QUEtiapine 400 MG tablet Commonly known as: SEROQUEL Take 1 (one) tablet (400 mg total) by mouth nightly . Quantity: 30 tablet Physician(s) Follow Up: [facility] Address: [facility]: [facility], [place], [facility] [phone] Condition at Discharge: Stable Disposition: Home On day of discharge, I performed a final bedside evaluation including a physical exam. I reviewed discharge recommendations with the patient in person. Patient instructions, including activity, were given to the patient/family at discharge. Time spent on discharge: > 30 minutes Completed by: Harshad Rizzo on 03/30/23, 12:52 PM documented in this encounter [facility] 03-30-2023 Consult note Associated Order (s): IP CONSULT TO [facility] agency: Accepted or Pending Name of agency: (if [facility], include region) [facility] can accept. [facility] created for the following services: [or waiting for ____ (i.e wound care)] Yes, SN/PT/OT/aide Verify the demographics (residential address) [address] [place] [address] What is the primary number to reach you? [phone] Who is your family physician/primary care physician? PCP Sheng [facility] [phone] Message left with office Do you have a caregiver and/or teachable caregiver (list relationship, name & phone #)? Shi Jean Baptiste (Mother) [phone] (Home Phone) Has the patient been added to capacity board/tracking sheet? ([facility] only) Velia without limitations Estimated Discharge Date (KUNAL): 03/30 If discharge needs change, please reach out to liaison assigned on treatment team as hub is not notified of new consults once team is following. Thank you. [facility] 03-30-2023 Consult note Associated Order (s): IP CONSULT TO [facility] agency: Accepted or Pending Name of agency: (if [facility], include region) [facility] can accept. [facility] created for the following services: [or waiting for ____ (i.e wound care)] Yes, SN/PT/OT/aide Verify the demographics (residential address) [address] [place] [address] What is the primary number to reach you? [phone] Who is your family physician/primary care physician? PCP [facility] [phone] Message left with office Do you have a caregiver and/or teachable caregiver (list relationship, name & phone #)? Shi Jean Baptiste (Mother) [phone] (Home Phone) Has the patient been added to capacity board/tracking sheet? ([facility] only) Velia without limitations Estimated Discharge Date (KUNAL): 03/30 If discharge needs change, please reach out to liaison assigned on treatment team as hub is not notified of new consults once team is following. Thank you. Associated Order(s): IP CONSULT TO CARE MANAGEMENT Care Management Consult Note Date: 03/30/2023 Time: 11:37 AM Patient Name: Addie Jean Baptiste Date of : 1975 Reason for Consult: Discharge Needs Discharge Plan: D/C Disposition: Home Health Care Services Related to Current Admission?: Yes Post-Acute Patient Choice 1: [facility] Post-Acute Patient Choice 2: no preference HME: Other (Comment) (Transport wheelchair) HME Agency: [facility] Community/Outpatient Referral: Community resource information Options Reviewed: Explained services/benefits, List provided Reason for Choice: Patient/Family preference Discharging Transportation Plan: Transportation Type: Auto Discharge Plan Status: Met with patient to review discharge needs, patient confirmed that she lives at home with her son and DIL, and stated that the plan is to return home at discharge, her DIL will provide transport. Patient confirmed that she normally uses a power wheelchair at baseline, but would like to be able to get a little stronger so she can walk a few feet, patient is requesting home Health services. Patient will need SN for medication management, PT/OT, and WATER USE INSPECTOR. After review of options, patient chose [facility] 1st, and no preference 2nd.. HH HUB order placed, awaiting verification from liaison that HH has been arranged. Patient has a power wheelchair at home and stated she really needs a lightweight transport chair, something that can be folded up and her DIL can get in the car to take with them for appointments, she stated she could also use a front-wheeled walker. Order placed, F2F note completed, and Nataly with [facility] contacted, CM awaiting notification on if insurance will approve. Patient denies any food, medication, or financial needs at this time. CM called and spoke with [facility]. [facility] Statistics Manager, Ashley [phone], she confirmed that patient has established with PCP Sheng Hebert and has a follow up appointment tomorrow. CM also reviewed patient needs of transport wheelchair and front-wheeled walker. Advised this CM working to see if can obtain the transport wheelchair for patient prior to discharge. Ashley stated she will work on trying to get her a front-wheeled walker. Per SW notes in January, a Waiver application was sent to S, but patient stated that no one ever contacted her regarding the application. CHW consulted to submit a new Waiver application, as patient could benefit from long-term WATER USE INSPECTOR, medication management, and incontinence supplies. CHW Ravi notified via in-basket. 1400 update - Nataly with [facility] confirmed delivery of the transport chair. Patient is OK to discharge home with [facility] from Care Management standpoint. Assessment and Background Information: Living Arrangements: Family members Support Systems: Family members Assistance Needed: no Type of Residence: Private residence Prior to Admission Home Care Services: No Patient expects to be discharged to:: home Does the patient need discharge transport arranged?: No Current Home Equipment: Other (Comment) (power wheelchair) Holistic Assessment Medication adherence problem:: (!) Yes Barriers to medication adherence: Don't understand History of falls in last 6 months:: No Family aware of the patient's advance care planning wishes:: Yes Do you have any cultural/spiritual connections or beliefs that would impact how we deliver your care?: No Chronic pain:: (!) Yes Location of chronic pain:: back Chronic pain timing:: Constant Limitation of routine activities due to chronic pain:: Yes documented in this encounter [facility] 03-30-2023 Note Formatting of this n ote might be different from the original. [id number] ENCOUNTER FOR HOME MEDICAL EQUIPMENT PATIENT: Addie Organ : 1975 Statement of Care: I certify that Addie Organ is under my care and that I had a [id number] encounter with this patient today to evaluate and discuss the need for home medical equipment. I certify that based on the findings of this evaluation, which included but was not limited to the [id number] requirements, the following home medical equipment is medically necessary: Transport wheelchair for the treatment of mobility limitations to enable participation in mobility-related activities of daily living (MRADL) in the home. Based on the current evaluation, patient can safely use prescribed equipment to perform mobility-related activities of daily living (MRADL) in the home.. Signed by: Harshad Rizzo MD on 03/30/2023 [facility] 03-30-2023 Consult note Associated Order (s): IP CONSULT TO CARE MANAGEMENT Care Management Consult Note Date: 03/30/2023 Time: 11:37 AM Patient Name: Addie Jean Baptiste Date of : 1975 Reason for Consult: Discharge Needs Discharge Plan: D/C Disposition: Home Health Care Services Related to Current Admission?: Yes Post-Acute Patient Choice 1: [facility] Post-Acute Patient Choice 2: no preference HME: Other (Comment) (Transport wheelchair) HME Agency: [facility] Community/Outpatient Referral: Community resource information Options Reviewed: Explained services/benefits, List provided Reason for Choice: Patient/Family preference Discharging Transportation Plan: Transportation Type: Auto Discharge Plan Status: Met with patient to review discharge needs, patient confirmed that she lives at home with her son and DIL, and stated that the plan is to return home at discharge, her DIL will provide transport. Patient confirmed that she normally uses a power wheelchair at baseline, but would like to be able to get a little stronger so she can walk a few feet, patient is requesting home Health services. Patient will need SN for medication management, PT/OT, and WATER USE INSPECTOR. After review of options, patient chose [facility] 1st, and no preference 2nd.. HH HUB order placed, awaiting verification from liaison that HH has been arranged. Patient has a power wheelchair at home and stated she really needs a lightweight transport chair, something that can be folded up and her DIL can get in the car to take with them for appointments, she stated she could also use a front-wheeled walker. Order placed, F2F note completed, and Nataly with [facility] contacted, CM awaiting notification on if insurance will approve. Patient denies any food, medication, or financial needs at this time. CM called and spoke with [facility]. [facility] Statistics Manager, Ashley [phone], she confirmed that patient has established with PCP Sheng Hebert and has a follow up appointment tomorrow. CM also reviewed patient needs of transport wheelchair and front-wheeled walker. Advised this CM working to see if can obtain the transport wheelchair for patient prior to discharge. Ashley stated she will work on trying to get her a front-wheeled walker. Per SW notes in January, a Waiver application was sent to [facility], but patient stated that no one ever contacted her regarding the application. CHW consulted to submit a new Waiver application, as patient could benefit from long-term WATER USE INSPECTOR, medication management, and incontinence supplies. CHW Ravi notified via in-basket. 1400 update - Nataly with [facility] confirmed delivery of the transport chair. Patient is OK to discharge home with [facility] from Care Management standpoint. Assessment and Background Information: Living Arrangements: Family members Support Systems: Family members Assistance Needed: no Type of Residence: Private residence Prior to Admission Home Care Services: No Patient expects to be discharged to:: home Does the patient need discharge transport arranged?: No Current Home Equipment: Other (Comment) (power wheelchair) Holistic Assessment Medication adherence problem:: (!) Yes Barriers to medication adherence: Don't understand History of falls in last 6 months:: No Family aware of the patient's advance care planning wishes:: Yes Do you have any cultural/spiritual connections or beliefs that would impact how we deliver your care?: No Chronic pain:: (!) Yes Location of chronic pain:: back Chronic pain timing:: Constant Limitation of routine activities due to chronic pain:: Yes [facility] 03-29-2023 Note Formatting of this n ote might be different from the original. Problem: Actual or potential alteration in health Goal: Absence of healthcare acquired conditions Outcome: Partially Met Goal: Knowledge of Interdisciplinary Plan of Care Outcome: Partially Met Goal: Knowledge of Enviroment Outcome: Partially Met Problem: Pain Goal: Manage acute pain Outcome: Partially Met Goal: Manage chronic pain Outcome: Partially Met Goal: Reduced pain sensation Outcome: Partially Met Goal: Achievement of comfort function goal Outcome: Partially Met [facility] 03-29-2023 History and physical note [facility] -- [facility] Patient Name: Addie Organ : 1975 MR #: [id number] Admit Date: 03/29/2023 Physicians: System, Provider Not In (Family); No ref. provider found (Referring) Addie Organ is a 47 y.o. female patient of System, Provider Not In with history of T2DM, seizure disorder, HTN, and chronic back pain presented to [facility] with chest pain. Atypical chest pain Elevated troponin, chronic P/w 3 day history of chest pain that was intermittent but has become constant Afebrile on arrival, HR 78, BP 146/78, satting >92% on RA CBC and BMP unremarkable, Initial troponin 15. EKG: sinus tachycardia, no new ST abnormality CXR: no acute process 2D echo in 01/2023 w LVEF 50%, normal diastolic function Last stress MPI 01/2023: no inducible ischemia Trend troponin, repeat EKG to eval for dynamic changes 2D echo to assess for WMA, LVEF Add on TSH/FT4 Cont home ASA, BB, ACEi/ARB, statin DVT ppx with subcutaneous heparin and SCDs Consider cardiology consult pending serial troponins T2DM, uncontrolled Diabetic peripheral neuropathy Last A1c 10.1% in 01/2023 Home regimen: SSI and lantus Accuchecks w qAC/HS SSI, titrate PRN Hypoglycemic protocol. Hold home oral meds Seizure disorder Continue home keppra Morbid obesity Body mass index is 45.73 kg/m . Discussed dietary and lifestyle modifications Residence prior to admission: house or apartment Was patient transferred from outlying hospital or ED no Quality Measures DVT Prophylaxis: heparin subcutaneous and SCDs Chow Catheter: absent Medication Reconciliation: Verified Risk variables present on admission: AMI, NSTEMI. Please see assessment and plan for further details. Estimated Date of Discharge less than 2 midnights Code Status Full Code; code status verified on 03/29/2023 with patient (capacity intact) Chief Complaint Chest pain History of Present Illness Addie Organ is a 47 y.o. female patient of System, Provider Not In with history of T2DM, seizure disorder, HTN, and chronic back pain presented to [facility] with chest pain. Pt states that her pain started a few days ago and was intermittent, but it has gotten worse the past day. The pain is described as a substernal centralized chest pain that is rated as an 8 out of 10. Nothing makes it better. No radiation. Otherwise denies any fever, chills, SOB, palpitations, HALL, peripheral edema, abdominal pain, N/V, diarrhea, constipation, dizziness, headache, or syncope. Past Medical History Past Medical History: Diagnosis Date Anxiety Bipolar 1 disorder (HCC) Bipolar disorder (HCC) Chronic back pain Coronary artery disease Depression Diabetes mellitus (HCC) Hypertension MRSA (methicillin resistant Staphylococcus aureus) Pacemaker Seizures (HCC) Stroke (HCC) Past Surgical History Past Surgical History: Procedure Laterality Date CHOLECYSTECTOMY FOOT SURGERY HYSTERECTOMY ORTHOPEDIC SURGERY left foot surgery PACEMAKER INSERTION Family History Family History Problem Relation Age of Onset Hypertension Father Diabetes type II Father Seizures Mother Social History Social History Tobacco Use Smoking Status Every Day Packs/day: 1.00 Years: 18.00 Additional pack years: 0.00 Total pack years: 18.00 Types: Cigarettes Start date: 09/30/2014 Smokeless Tobacco Never Social History Substance and Sexual Activity Alcohol Use No Alcohol/week: 0.0 standard drinks of alcohol Social History Substance and Sexual Activity Drug Use No Allergy Information I have reviewed the patient's allergies. Iodides, Ketorolac, Tramadol, Codeine, Propoxyphene n-acetaminophen, Adhesive, Ct: iodinated contrast- oral and iv dye, Fentanyl, Ibuprofen, Latex, Linezolid, Lorazepam, Nsaids (non-steroidal anti-inflammatory drug), Vancomycin, and Propoxyphene Home Medications Home medications were reviewed. Review Of Systems All relevant systems have been reviewed and are negative except as noted in HPI or below Physical Examination BP (!) 146/78 Pulse 78 Temp 98.4 F (36.9 C) Resp 16 Ht 5' 2 Wt 113.4 kg (250 lb) SpO2 99% BMI 45.73 kg/m General Appearance: alert; chronically ill appearing; in no acute distress HEENT: Head- normocephalic; Eyes- EOMI, sclera anicteric; Throat- mucous membranes moist Cardiovascular: regular rate and rhythm; normal S1, S2; no murmurs, rubs, clicks or gallops; peripheral edema absent Respiratory: lungs clear to auscultation; without wheezes, rales or rhonchi; on room air Abdomen: soft, non-tender, non-distended Neurological: oriented x 3; normal speech; no focal findings or movement disorder noted Musculoskeletal: no significant deformity or tenderness to palpation Skin: normal coloration Psych: normal mood and affect Associated attestation - Todd Hennessy MD - 03/29/2023 2:56 PM EST [facility] [place] ADDENDUM I saw and examined the patient independently of the FRIDA . Labs, medications, imaging and other studies were reviewed. I agree with history, physical examination findings, medical decision making and the assessment/plan with additions as noted in my documentation below. HPI This is 47-year-old female patient who has past medical history mentioned in PA's note. Patient presented with chest pain. Physical Examination General Appearance: alert; acutely ill appearing; in no acute distress HEENT: Head- normocephalic; Eyes- EOMI, sclera anicteric; Ears- hearing intact; Nose- no nasal discharge; Throat- mucous membranes moist Cardiovascular: regular rate and rhythm; normal S1, S2; no murmurs, rubs, clicks or gallops; no peripheral edema Respiratory: lungs clear to auscultation; without wheezes, rales or rhonchi; on room air Abdomen: soft, non-tender, non-distended; positive bowel sounds Neurological: oriented x 3; normal speech; no focal findings or movement disorder noted Musculoskeletal: no significant deformity or tenderness to palpation Skin: normal coloration; no obvious rashes, lesions or skin breakdown Psych: normal mood and affect Assessment/Plan Chest pain Chronically elevated troponin Presented with chest pain since yesterday. She had 2D echo on 02/11 showing with EF of 50% Stress test on 02/14 showed no was negative. Continue on home medication. Diabetes mellitus type 2 Diabetic peripheral neuropathy Seizure disorder Morbid obesity [facility] 03-29-2023 History and physical note [facility] [place] [facility] -- [facility] Patient Name: Addie Jean Baptiste : 1975 MR #: [id number] Admit Date: 03/29/2023 Physicians: System, Provider Not In (Family); No ref. provider found (Referring) Addie Jean Baptiste is a 47 y.o. female patient of System, Provider Not In with history of T2DM, seizure disorder, HTN, and chronic back pain presented to [facility] with chest pain. Atypical chest pain Elevated troponin, chronic P/w 3 day history of chest pain that was intermittent but has become constant Afebrile on arrival, HR 78, BP 146/78, satting >92% on RA CBC and BMP unremarkable, Initial troponin 15. EKG: sinus tachycardia, no new ST abnormality CXR: no acute process 2D echo in 01/2023 w LVEF 50%, normal diastolic function Last stress MPI 01/2023: no inducible ischemia Trend troponin, repeat EKG to eval for dynamic changes 2D echo to assess for WMA, LVEF Add on TSH/FT4 Cont home ASA, BB, ACEi/ARB, statin DVT ppx with subcutaneous heparin and SCDs Consider cardiology consult pending serial troponins T2DM, uncontrolled Diabetic peripheral neuropathy Last A1c 10.1% in 01/2023 Home regimen: SSI and lantus Accuchecks w qAC/HS SSI, titrate PRN Hypoglycemic protocol. Hold home oral meds Seizure disorder Continue home keppra Morbid obesity Body mass index is 45.73 kg/m . Discussed dietary and lifestyle modifications Residence prior to admission: house or apartment Was patient transferred from outlying hospital or ED no Quality Measures DVT Prophylaxis: heparin subcutaneous and SCDs Chow Catheter: absent Medication Reconciliation: Verified Risk variables present on admission: AMI, NSTEMI. Please see assessment and plan for further details. Estimated Date of Discharge less than 2 midnights Code Status Full Code; code status verified on 03/29/2023 with patient (capacity intact) Chief Complaint Chest pain History of Present Illness Addie Jean Baptiste is a 47 y.o. female patient of System, Provider Not In with history of T2DM, seizure disorder, HTN, and chronic back pain presented to [facility] with chest pain. Pt states that her pain started a few days ago and was intermittent, but it has gotten worse the past day. The pain is described as a substernal centralized chest pain that is rated as an 8 out of 10. Nothing makes it better. No radiation. Otherwise denies any fever, chills, SOB, palpitations, HALL, peripheral edema, abdominal pain, N/V, diarrhea, constipation, dizziness, headache, or syncope. Past Medical History Past Medical History: Diagnosis Date Anxiety Bipolar 1 disorder (HCC) Bipolar disorder (HCC) Chronic back pain Coronary artery disease Depression Diabetes mellitus (HCC) Hypertension MRSA (methicillin resistant Staphylococcus aureus) Pacemaker Seizures (HCC) Stroke (HCC) Past Surgical History Past Surgical History: Procedure Laterality Date CHOLECYSTECTOMY FOOT SURGERY HYSTERECTOMY ORTHOPEDIC SURGERY left foot surgery PACEMAKER INSERTION Family History Family History Problem Relation Age of Onset Hypertension Father Diabetes type II Father Seizures Mother Social History Social History Tobacco Use Smoking Status Every Day Packs/day: 1.00 Years: 18.00 Additional pack years: 0.00 Total pack years: 18.00 Types: Cigarettes Start date: 09/30/2014 Smokeless Tobacco Never Social History Substance and Sexual Activity Alcohol Use No Alcohol/week: 0.0 standard drinks of alcohol Social History Substance and Sexual Activity Drug Use No Allergy Information I have reviewed the patient's allergies. Iodides, Ketorolac, Tramadol, Codeine, Propoxyphene n-acetaminophen, Adhesive, Ct: iodinated contrast- oral and iv dye, Fentanyl, Ibuprofen, Latex, Linezolid, Lorazepam, Nsaids (non-steroidal anti-inflammatory drug), Vancomycin, and Propoxyphene Home Medications Home medications were reviewed. Review Of Systems All relevant systems have been reviewed and are negative except as noted in HPI or below Physical Examination BP (!) 146/78 Pulse 78 Temp 98.4 F (36.9 C) Resp 16 Ht 5' 2 Wt 113.4 kg (250 lb) SpO2 99% BMI 45.73 kg/m General Appearance: alert; chronically ill appearing; in no acute distress HEENT: Head- normocephalic; Eyes- EOMI, sclera anicteric; Throat- mucous membranes moist Cardiovascular: regular rate and rhythm; normal S1, S2; no murmurs, rubs, clicks or gallops; peripheral edema absent Respiratory: lungs clear to auscultation; without wheezes, rales or rhonchi; on room air Abdomen: soft, non-tender, non-distended Neurological: oriented x 3; normal speech; no focal findings or movement disorder noted Musculoskeletal: no significant deformity or tenderness to palpation Skin: normal coloration Psych: normal mood and affect Associated attestation - Todd Hennessy MD - 03/29/2023 2:56 PM EST [facility] NOTE ADDENDUM I saw and examined the patient independently of the FRIDA . Labs, medications, imaging and other studies were reviewed. I agree with history, physical examination findings, medical decision making and the assessment/plan with additions as noted in my documentation below. HPI This is 47-year-old female patient who has past medical history mentioned in PA's note. Patient presented with chest pain. Physical Examination General Appearance: alert; acutely ill appearing; in no acute distress HEENT: Head- normocephalic; Eyes- EOMI, sclera anicteric; Ears- hearing intact; Nose- no nasal discharge; Throat- mucous membranes moist Cardiovascular: regular rate and rhythm; normal S1, S2; no murmurs, rubs, clicks or gallops; no peripheral edema Respiratory: lungs clear to auscultation; without wheezes, rales or rhonchi; on room air Abdomen: soft, non-tender, non-distended; positive bowel sounds Neurological: oriented x 3; normal speech; no focal findings or movement disorder noted Musculoskeletal: no significant deformity or tenderness to palpation Skin: normal coloration; no obvious rashes, lesions or skin breakdown Psych: normal mood and affect Assessment/Plan Chest pain Chronically elevated troponin Presented with chest pain since yesterday. She had 2D echo on 02/11 showing with EF of 50% Stress test on 02/14 showed no was negative. Continue on home medication. Diabetes mellitus type 2 Diabetic peripheral neuropathy Seizure disorder Morbid obesity documented in this encounter [facility] 03-29-2023 Emergency department Note Called lab for HFP, and lipase- not troponin at this time. [facility] 03-29-2023 Emergency department Note Hourly rounding completed. Comfort measures and needs addressed. Pt resting on cot (notable chest rise and fall) with call light in reach. Pt updated on plan of care. [facility] 03-29-2023 Emergency department Note Called lab for HFP, and lipase- not troponin at this time. Hourly rounding completed. Comfort measures and needs addressed. Pt resting on cot (notable chest rise and fall) with call light in reach. Pt updated on plan of care. Hourly rounding completed. Comfort measures and needs addressed. Pt resting on cot (notable chest rise and fall) with call light in reach. Pt updated on plan of care. Called lab for blood work again Lab called for blood draw Pt states I have right sided sharp pain on the side of my stomach also. Per EMS She has had chest pain for 4 days. We have Asprin and nitroglycerin in route. She is paced on the 4 lead. Pt states mid sternal chest pain 01/01 Bed: 17 Expected date: Expected time: Means of arrival: Comments: 26 documented in this encounter [facility] 03-29-2023 Emergency department Note Hourly rounding completed. Comfort measures and needs addressed. Pt resting on cot (notable chest rise and fall) with call light in reach. Pt updated on plan of care. [facility] 03-29-2023 Emergency department Note Called lab for blood work again [facility] 03-29-2023 Emergency department Note Lab called for blood draw [facility] 03-29-2023 Emergency department Note Pt states I have right sided sharp pain on the side of my stomach also. [facility] 03-29-2023 Emergency department Triage note Per EMS She has had chest pain for 4 days. We have Asprin and nitroglycerin in route. She is paced on the 4 lead. Pt states mid sternal chest pain 01/01 [facility] 03-29-2023 Emergency department Note Bed: 17 Expected date: Expected time: Means of arrival: Comments: 26 [facility] 02-20-2023 Hospital course Narrative [facility] DISCHARGE SUMMARY Addie Jean Baptiste Admitted: 02/17/2023 Discharge Date: 02/20/23 Clinical Summary Addie Jean Baptiste is a 47 y.o. female patient of System, Provider Not In with history of diabetes, hypertension, hypothyroidism, COPD, and GERD, now presented to [facility] with chest pain. Assessment and Plan Chest pain, resolved Mildly elevated troponins EKG with no ischemia Allergy to aspirin; on Plavix Continue statin Cardiac stress test unremarkable Echo with normal LVEF Hypotension, resolved SOLO, due to above; resolved Likely due to polypharmacy BP currently stable Discontinue lisinopril Avoid narcotics S/p IV fluid bolus No sign of sepsis; normal lactate blood cultures negative so far Discontinue Zanaflex reduce the dose of pregabalin and quetiapine Case management for discharge needs Diabetes Continue home regimen Last A1c 10.1 Closely follow-up with PCP for tighter glycemic control Hypothyroidism Continue home Synthroid. Hypertension Continue home lisinopril. COPD Continue home Dulera and as needed albuterol. GERD Continue on Protonix. Morbid obesity Outpatient diet and exercise regimen. Evaluation for SEMAJ and/or continuation of home CPAP. BMI: 45.73. Discharge Medications Discharge Medications Modified Medications Details levothyroxine 75 MCG tablet Commonly known as: SYNTHROID, LEVOTHROID What changed: when to take this Take 1 (one) tablet (75 mcg total) by mouth once daily . Quantity: 30 tablet metoprolol succinate 25 MG 24 hr tablet Commonly known as: TOPROL-XL What changed: medication strength how much to take when to take this Take 1 (one) tablet (25 mg total) by mouth daily . Quantity: 30 tablet pregabalin 25 MG capsule Commonly known as: LYRICA What changed: medication strength Take 3 (three) capsules (75 mg total) by mouth 2 (two) times a day for 10 days . Quantity: 60 capsule QUEtiapine 400 MG tablet Commonly known as: SEROQUEL What changed: how much to take Take 1 (one) tablet (400 mg total) by mouth nightly . Quantity: 30 tablet Medications To Continue Details fluticasone propion-salmeteroL 250-50 mcg/dose diskus inhaler Commonly known as: ADVAIR DISKUS Inhale 1 (one) puff 2 (two) times a day . insulin glargine 100 unit/mL (3 mL) Inpn Commonly known as: LANTUS SOLOSTAR/BASAGLAR KWIKPEN Inject 25 (twenty five) Units under the skin nightly . Quantity: 7.5 mL insulin lispro 100 unit/mL injection Commonly known as: AdmeLOG,HumaLOG Inject under the skin See Admin Instructions Inject up to 150 units once daily via pump . levETIRAcetam 1000 MG tablet Commonly known as: KEPPRA Take 1 (one) tablet (1,000 mg total) by mouth 2 (two) times a day . Quantity: 180 tablet omeprazole 40 MG capsule Commonly known as: PRILOSEC Take 1 (one) capsule (40 mg total) by mouth 2 (two) times a day . Omnipod Classic Pods (Gen 3) Crtg Generic drug: insulin pump cart,cont inf,RF Stopped Medications diclofenac sodium 3 % Gel lisinopriL 40 MG tablet Commonly known as: PRINIVIL,ZESTRIL ondansetron 4 MG disintegrating tablet Commonly known as: ZOFRAN-ODT traZODone 50 MG tablet Commonly known as: DESYREL Zanaflex 6 MG capsule Generic drug: tiZANidine Physician(s) Follow Up: No follow-up provider specified. Condition at Discharge: Stable Disposition: Home On day of discharge, I performed a final bedside evaluation including a physical exam. I reviewed discharge recommendations with the patient in person. Patient instructions, including activity, were given to the patient/family at discharge. Time spent on discharge: > 30 minutes Completed by: Harshad Rizzo on 02/20/23, 12:04 PM documented in this encounter [facility] 02-20-2023 Note Formatting of this n ote might be different from the original. Noted monitoring of Cr. Clinical Indicators: Admitted with chest pain then had stress test done on 0.9NS at 100 ml/hr and did get two 500 ml fluid boluses of 0.9*NS Cr 0.99 2.04 1.19 Please document the corresponding diagnosis reflective of these findings. For Example: SOLO, resolving Elevated Cr due to (please specify) Other (please specify) Unable to determine Thank you Sole Noel RN, BSN Clinical Can Marker [phone] After business hours you may contact Shannen Manley at [phone] (Weekdays until 10 PM and weekends 8 AM -10 PM) [facility] 02-20-2023 Miscellaneous Notes Noted monitoring of Cr. Clinical Indicators: Admitted with chest pain then had stress test done on 0.9NS at 100 ml/hr and did get two 500 ml fluid boluses of 0.9*NS Cr 0.99 2.04 1.19 Please document the corresponding diagnosis reflective of these findings. For Example: SOLO, resolving Elevated Cr due to (please specify) Other (please specify) Unable to determine Thank you Sole Noel RN, BSN Clinical Can Marker [phone] After business hours you may contact Shannenjack Santana at [phone] (Weekdays until 10 PM and weekends 8 AM -10 PM) Central UR Utilization Review Notes EMERGENCY TEMPLATE HISTORY OF PRESENT ILLNESS: 47 y.o. female patient of System, Provider Not In with history of diabetes, hypertension, hypothyroidism, COPD, and GERD, now presented to [facility] with chest pain. Beginning around 4 PM, the patient developed new onset chest pain, described as a tightness sensation, localized to the right chest, constant since initial onset, radiating into the back, with associated shortness of breath, diaphoresis and palpitations. The patient denies any worsening of her chest pain in response to chest wall palpation, cough, deep breathing, or food intake. VITAL SIGNS: BP (!) 151/109 Pulse 91 Temp 98.4 F (36.9 C) (Oral) Resp 18 Ht 5' 2 Wt 113.4 kg (250 lb) SpO2 98% BP (!) 80/56 Pulse 63 Temp 97.4 F (36.3 C) (Oral) Resp 16 Ht 5' 2 Wt 114 kg (251 lb 5.2 oz) SpO2 98% EKG: Rhythm: sinus rhythm BPM: 96 Other findings: LELA Clinical impression: abnormal ECG WEIGHT:114 kg (251 lb 5.2 oz) LABS: (Abnormal / Relevant): CR 2.04 TROP BLOOD CX PENDING IMAGING: (Abnormal / Relevant): ECHO: Summary 1. Normal LV cavity size and function. 2. Left ventricular systolic function is normal with an ejection fraction by Biplane Method of Discs of 50 %. 3. Normal diastolic function. 4. Mild concentric LVH. 5. Trivial TR/PI. DX: HYPOTENSION ASSESSMENT / PLAN: QUICK NOTE: 02/19/23 Notified of some relative hypotension overnight and into the morning. Discontinued home Lisinopril and metoprolol. Also, 1L IVF bolused and placed on mIVF for another liter. Night time doses of seroquel (from 800 mg to 400 mg) and Zanaflex reduced (from 12 mg to 4 mg). Suspect hypotension primarily medication induced, low suspicion for infection. Chest pain, resolved Mildly elevated troponins EKG with no ischemia Allergy to aspirin; on Plavix Continue statin Cardiac stress test unremarkable Echo with normal LVEF Hypotension, improving Systolic BP 65-70 Developed overnight; etiology unknown; likely medication induced Continue to hold antihypertensives Withhold narcotics and psychotropic medications Continue IV fluid bolus Solu-Medrol 80 mg x 1 IVP Midodrine 10 mg x 1 Monitor closely; transfer to intermediate care for Levophed administration if BP continues to remain low No sign of sepsis; however will check lactate and blood cultures Check UDS Diabetes Temporarily hold home metformin for the moment. Continue home basal glargine. Last A1c 10.1 sliding scale insulin with ACHS Accu-Cheks. diabetic diet. Continue IV fluids Closely follow-up with PCP for tighter glycemic control Hypothyroidism Continue home Synthroid. Hypertension Continue home lisinopril. COPD Continue home Dulera and as needed albuterol. GERD Continue on Protonix. Morbid obesity Outpatient diet and exercise regimen. Evaluation for SEMAJ and/or continuation of home CPAP. BMI: 45.73. MEDS / ORDERS: LYRICA, SEROQUEL, MIDODRINE, KEPPRA, DULERA INHALER, LOVENOX, PLAVIX, PROTONIX, INSULIN, SYNTHROID, NS IV BOLUS 500 ML NS IV AT 100 ML/HR DISPO: TBD Notified of some relative hypotension overnight and into the morning. Discontinued home Lisinopril and metoprolol. Also, 1L IVF bolused and placed on mIVF for another liter. Night time doses of seroquel (from 800 mg to 400 mg) and Zanaflex reduced (from 12 mg to 4 mg). Suspect hypotension primarily medication induced, low suspicion for infection. Patient seen and examined at bedside during morning rounds. Admitted this morning for evaluation of chest pain. Feeling better; no acute distress. denies any shortness of breath, palpitation, chest pain, fever, chills, cough, nausea, vomiting, diarrhea, constipation or headache. Labs and imaging studies reviewed Nuclear stress test has been ordered We will obtain 2D echo Rest of management as per H&P Problem: Actual or potential alteration in health Goal: Absence of healthcare acquired conditions Outcome: Partially Met Goal: Knowledge of Interdisciplinary Plan of Care Outcome: Partially Met Goal: Knowledge of Enviroment Outcome: Partially Met Problem: Pain Goal: Manage acute pain Outcome: Partially Met Goal: Manage chronic pain Outcome: Partially Met Goal: Reduced pain sensation Outcome: Partially Met Goal: Achievement of comfort function goal Outcome: Partially Met Problem: Falls, Risk of Goal: Absence of falls Outcome: Partially Met documented in this encounter [facility] 02-20-2023 Consult note Associated Order (s): IP CONSULT TO ELECTRICIAN POWERHOUSE Attempted to meet with patient for Diabetes Education this am. She refused stating, I want no part of it . Patient also refused education at her December admission. [facility] 02-20-2023 Consult note Associated Order (s): IP CONSULT TO ELECTRICIAN POWERHOUSE Attempted to meet with patient for Diabetes Education this am. She refused stating, I want no part of it . Patient also refused education at her December admission. Attempted to meet with patient this am for Diabetes Education. Per primary nurse, the patient is not clinically appropriate at this time. She is drowsy and hard to arouse. Will check back at a later time. Associated Order(s): IP CONSULT TO CARE MANAGEMENT Care Management Consult Note Date: 02/18/2023 Time: 3:21 PM Patient Name: Addie Jean Baptiste Date of : 1975 Reason for Consult: Discharge Needs Discharge Plan: D/C Disposition: Home Community/Outpatient Referral: Community resource information, Other (Comment) Reason for Choice: Patient/Family preference Discharging Transportation Plan: Discharge Plan Status: SW f2f with pt. Pt reported her daughter lives with her. Pt reported her daughter is 17. Pt stated that they are currently staying in a motel in [place]. Pt asking for help with housing. SW asked pt if she has applied for metro and pt reported she has not and she has applications for apartments but she needs help with filling them out. SW explained it may be beneficial for her to get on Waiver services as she can get a cm assigned to her that can follow and assist. Pt reported that she is in a power wheelchair. Pt reported that her daughter drives. Pt reported she is hoping to get out of the hotel soon as it is costly and she is concerned about the drug activity. Pt reported that she receives incontinent supplies and gloves from an agency 1x week. Pt reported she would like to have another resource list, reported that she was given one previously. Pt is asking about a shower chair. Did report she was given one previously but that its broken. SW explained insurance only covers 1x per 5 years will determine whether SW able to provide her another one. Pt reported she is also wanting to get an Sack Sorter here in [place] as hers is still in [place]. Pt is agreeable to Waiver referral. SW also suggested looking into [employer] Sleeping rooms, or other affordable housing options. She did report she is able to make calls to places. Agreeable to housing help info on AVS. RACQUEL faxed Waiver Referral. SW placed housing options on AVS Community Resource Packet provided to pt. SW placed ambulatory referral to Endocrinology. Assessment and Background Information: Living Arrangements: Homeless Support Systems: Family members Assistance Needed: denies Type of Residence: (Hotel) Prior to Admission Home Care Services: No documented in this encounter [facility] 02-19-2023 Note Formatting of this n ote might be different from the original. Central UR Utilization Review Notes EMERGENCY TEMPLATE HISTORY OF PRESENT ILLNESS: 47 y.o. female patient of System, Provider Not In with history of diabetes, hypertension, hypothyroidism, COPD, and GERD, now presented to [facility] with chest pain. Beginning around 4 PM, the patient developed new onset chest pain, described as a tightness sensation, localized to the right chest, constant since initial onset, radiating into the back, with associated shortness of breath, diaphoresis and palpitations. The patient denies any worsening of her chest pain in response to chest wall palpation, cough, deep breathing, or food intake. VITAL SIGNS: BP (!) 151/109 Pulse 91 Temp 98.4 F (36.9 C) (Oral) Resp 18 Ht 5' 2 Wt 113.4 kg (250 lb) SpO2 98% BP (!) 80/56 Pulse 63 Temp 97.4 F (36.3 C) (Oral) Resp 16 Ht 5' 2 Wt 114 kg (251 lb 5.2 oz) SpO2 98% EKG: Rhythm: sinus rhythm BPM: 96 Other findings: LELA Clinical impression: abnormal ECG WEIGHT:114 kg (251 lb 5.2 oz) LABS: (Abnormal / Relevant): CR 2.04 TROP 18 - 19 - 33 BLOOD CX PENDING IMAGING: (Abnormal / Relevant): ECHO: Summary 1. Normal LV cavity size and function. 2. Left ventricular systolic function is normal with an ejection fraction by Biplane Method of Discs of 50 %. 3. Normal diastolic function. 4. Mild concentric LVH. 5. Trivial TR/PI. DX: HYPOTENSION ASSESSMENT / PLAN: QUICK NOTE: 02/19/23 Notified of some relative hypotension overnight and into the morning. Discontinued home Lisinopril and metoprolol. Also, 1L IVF bolused and placed on mIVF for another liter. Night time doses of seroquel (from 800 mg to 400 mg) and Zanaflex reduced (from 12 mg to 4 mg). Suspect hypotension primarily medication induced, low suspicion for infection. Chest pain, resolved Mildly elevated troponins EKG with no ischemia Allergy to aspirin; on Plavix Continue statin Cardiac stress test unremarkable Echo with normal LVEF Hypotension, improving Systolic BP 65-70 Developed overnight; etiology unknown; likely medication induced Continue to hold antihypertensives Withhold narcotics and psychotropic medications Continue IV fluid bolus Solu-Medrol 80 mg x 1 IVP Midodrine 10 mg x 1 Monitor closely; transfer to intermediate care for Levophed administration if BP continues to remain low No sign of sepsis; however will check lactate and blood cultures Check UDS Diabetes Temporarily hold home metformin for the moment. Continue home basal glargine. Last A1c 10.1 sliding scale insulin with ACHS Accu-Cheks. diabetic diet. Continue IV fluids Closely follow-up with PCP for tighter glycemic control Hypothyroidism Continue home Synthroid. Hypertension Continue home lisinopril. COPD Continue home Dulera and as needed albuterol. GERD Continue on Protonix. Morbid obesity Outpatient diet and exercise regimen. Evaluation for SEMAJ and/or continuation of home CPAP. BMI: 45.73. MEDS / ORDERS: LYRICA, SEROQUEL, MIDODRINE, KEPPRA, DULERA INHALER, LOVENOX, PLAVIX, PROTONIX, INSULIN, SYNTHROID, NS IV BOLUS 500 ML NS IV AT 100 ML/HR DISPO: TBD [facility] 02-19-2023 History of Present illness Narrative [facility] PROGRESS NOTE Addie Jean Baptiste is a 47 y.o. female patient of System, Provider Not In with history of diabetes, hypertension, hypothyroidism, COPD, and GERD, now presented to [facility] with chest pain. Assessment and Plan Chest pain, resolved Mildly elevated troponins EKG with no ischemia Allergy to aspirin; on Plavix Continue statin Cardiac stress test unremarkable Echo with normal LVEF Hypotension, improving Systolic BP 65-70 Developed overnight; etiology unknown; likely medication induced Continue to hold antihypertensives Withhold narcotics and psychotropic medications Continue IV fluid bolus Solu-Medrol 80 mg x 1 IVP Midodrine 10 mg x 1 Monitor closely; transfer to intermediate care for Levophed administration if BP continues to remain low No sign of sepsis; however will check lactate and blood cultures Check UDS Diabetes Temporarily hold home metformin for the moment. Continue home basal glargine. Last A1c 10.1 sliding scale insulin with ACHS Accu-Cheks. diabetic diet. Continue IV fluids Closely follow-up with PCP for tighter glycemic control Hypothyroidism Continue home Synthroid. Hypertension Continue home lisinopril. COPD Continue home Dulera and as needed albuterol. GERD Continue on Protonix. Morbid obesity Outpatient diet and exercise regimen. Evaluation for SEMAJ and/or continuation of home CPAP. BMI: 45.73. Disposition Estimated Discharge Date: 24 hours Discharge Location: Home Outpatient Testing: Quality Measures DVT Prophylaxis: lovenox Chow Catheter: absent Code Status Full Code; code status verified on 02/19/2023 with confirmed by patient medical records Primary Contact Information Subjective Patient seen and examined at bedside. Complaining of nausea. denies any shortness of breath, palpitation, chest pain, fever, chills, cough, nausea, vomiting, diarrhea, constipation or headache. Blood pressure low 70s systolic. No fever or any sign of sepsis; seems drowsy. Objective BP (!) 80/56 Pulse 63 Temp 97.4 F (36.3 C) (Oral) Resp 16 Ht 5' 2 Wt 114 kg (251 lb 5.2 oz) SpO2 98% BMI 45.97 kg/m Physical Examination General Appearance: somnolent; chronically ill appearing; in no acute distress Cardiovascular: regular rate and rhythm; normal S1, S2; no murmurs, rubs, clicks or gallops; peripheral edema absent Respiratory: lungs clear to auscultation; without wheezes, rales or rhonchi; on room air Abdomen: soft, non-tender, non-distended Neurological: oriented x 2; normal speech; no focal findings or movement disorder noted Musculoskeletal: no significant deformity or tenderness to palpation Skin: normal coloration Psych: normal mood and affect Results/Medications Reviewed 02/19/2023 12:33 PM Laboratory, Microbiology, Radiology, Cardiology, and Medications Pharmacotherapy Note: CSII Pump Verification Pharmacist has inspected physical integrity of insulin. The following has been verified with the patient and / or patient's caregiver and by visual inspection: Type of Insulin used in pump: Insulin Lispro (Humalog). Patient is able to explain that the insulin and tubing are to be changed every Q24H and that the infusion site is rotated with each refill. Vials from patient's own supply have not been spiked, are well within the mail order biller expiration date and have been stored at room temperature (<28 days). Continue with insulin regimen as written. Please call pharmacy with any questions. Pharmacist: Dannielle Barrett Date: 02/18/2023 Contact Information: [phone] documented in this encounter [facility] 02-19-2023 Consult note Formatting of th is note might be different from the original. Attempted to meet with patient this am for Diabetes Education. Per primary nurse, the patient is not clinically appropriate at this time. She is drowsy and hard to arouse. Will check back at a later time. [facility] 02-19-2023 Note Formatting of this n ote might be different from the original. Notified of some relative hypotension overnight and into the morning. Discontinued home Lisinopril and metoprolol. Also, 1L IVF bolused and placed on mIVF for another liter. Night time doses of seroquel (from 800 mg to 400 mg) and Zanaflex reduced (from 12 mg to 4 mg). Suspect hypotension primarily medication induced, low suspicion for infection. [facility] Work Phone: 02-18-2023 Hospital Discharge instructions Jalyn Yanes LISW - 02/18/2023 3:30 PM EDT ADDITIONAL HOUSING INFORMATION FOR AFFORDABLE HOUSING OPTIONS: [facility] Mobile Home [place] [facility] [address] [facility] [address] [phone] 1-3 bedroom metro accepted [place] [address] [place] [address] [phone] [phone] [address] [place] [address] [phone] [facility] [address] [facility] [address] [place] [phone] 1-3 bedroom subsidized housing [place] [address] [facility] [address] [phone] [employer] [address] [facility] [phone] [place] [address] [facility] [address] [facility] [phone] [place] [address] [phone] [place] [address] [facility] [phone] [place] [address] [phone] [facility] [address] [facility] [phone] [facility] [address] [phone] [address] [facility] [phone] 1 & 2 bedrooms metro accepted [place] [address] [facility] [address] [place] [address] [facility] [facility] [address] [phone] 1 & 2 bedrooms metro accepted [facility] [address] [phone] [employer] [address] [phone] [facility] 2 [facility] [phone] [address] [phone] 1-3 bedroom metro accepted [facility] [address] [facility] [address] [phone] 1-3 bedroom metro accepted [place] [address] [facility] [phone] [facility] USP [address] [phone] [place] [address] [phone] 1-[address] [facility] [address] [phone] 1-3 bedroom metro accepted [facility] [address] [place] [address] [phone] [place] [address] [phone] [facility] [address] [phone] [employer] [address] [phone] Johnny Wall [phone] [employer] [address] [phone] Karen Stauffer [phone] [facility] [address] Zonia Maldonado [phone] [facility] [address] [phone] Maximino Portillo [phone] [facility] [address] [phone] [employer] [place] [facility] [phone] [facility] [address] [place] [phone] Nikos Thomas [phone] Ap[facility] [phone] Robert Duran [phone] METRO [place] Unique [phone] [facility] Housing [address] [facility] [address] [facility] Analilialas cruces [phone] We Rent [place] (Chris Matamoros) [phone] Income Based Housing [place] [email or web address] [facility] Apartments (Section 8) Bill Your [phone] [place] Apartments (Section 8) Sleeping Rooms [place] (Section 8) [employer] [phone] [employer] ( must be senior or disabled) [place] Sleeping Rooms [phone] [place] [address] (must be senior or disabled) [place] [facility] Rooms - [phone] [address] ( must be senior or disabled) Caryn Nayakw - [phone] Maximino Portillo - [phone] [employer] Websites to find Rentals https://www.PlaceFirst.com/groups/25 1827362899528/ www.rent.com https://www.PlaceFirst.com/groups/21 [email or web address] www.apartments.Roost https://www.PlaceFirst.com/groups/13 75909894220483/ www.rentals.Roost https://www.PlaceFirst.com/groups/55 7410484022583/ [place]/[email or web address]-go/re ntals/ [facility] FOOD ASSISTANCE [facility] [phone] By appointment only Thursday-Thursday between 10am and 3pm ([address] [facility]. Must provide photo ID and proof of address) [facility] [phone] , Thu, Thu, Sat 10a to 12p. 3p to 5p. ([address] [facility]. Photo ID and proof of address required) [facility] [phone] 3rd Sat of each month, 10a to 12p ([address] [facility]. photo ID and proof of address required) Life (LINK) [phone] 4th es of each month. Call on Thursday between 10a and 2p to schedule ([address]) [employer] Community [employer] [phone] Thursday 2pm-6pm Thursday Produce 2pm to 4pm [facility] [phone] ([address] [facility]. Call to inquire) [facility] [phone] Monthly giveaway, call for info ([address] [facility]) [facility] [phone] Wednesdays 830am to 10am bread giveaway only ([address] [place]) [employer] Food Pantry [phone] 3p to 5p ([address] [place]. Photo ID and proof of address required) [employer] [facility] [phone] call for info ([address] [facility]) Hel[employer] Helping Others Food Pantry [phone] Mondays and Thu 4p to 7p, soup kitchen Tuesdays 530p to 6p ([address] [facility]. Photo ID and proof of address required) [facility] Food Pantry [phone] call for info ([place]) [facility] Commodity Supplemental Food Program Contact Fatimah at [phone] Food box distribution for income eligible [facility] seniors 60+ ([address]) The following attachments cannot be sent through Care Everywhere.Chest Pain (Japanese)documented in this encounter [facility] 02-18-2023 Consult note Associated Order (s): IP CONSULT TO CARE MANAGEMENT Care Management Consult Note Date: 02/18/2023 Time: 3:21 PM Patient Name: Addie Jean Baptiste Date of : 1975 Reason for Consult: Discharge Needs Discharge Plan: D/C Disposition: Home Community/Outpatient Referral: Community resource information, Other (Comment) Reason for Choice: Patient/Family preference Discharging Transportation Plan: Discharge Plan Status: SW f2f with pt. Pt reported her daughter lives with her. Pt reported her daughter is 17. Pt stated that they are currently staying in a motel in [place]. Pt asking for help with housing. SW asked pt if she has applied for metro and pt reported she has not and she has applications for apartments but she needs help with filling them out. SW explained it may be beneficial for her to get on Waiver services as she can get a cm assigned to her that can follow and assist. Pt reported that she is in a power wheelchair. Pt reported that her daughter drives. Pt reported she is hoping to get out of the hotel soon as it is costly and she is concerned about the drug activity. Pt reported that she receives incontinent supplies and gloves from an agency 1x week. Pt reported she would like to have another resource list, reported that she was given one previously. Pt is asking about a shower chair. Did report she was given one previously but that its broken. SW explained insurance only covers 1x per 5 years will determine whether SW able to provide her another one. Pt reported she is also wanting to get an Sack Sorter here in [place] as hers is still in [place]. Pt is agreeable to Waiver referral. SW also suggested looking into [employer] Sleeping rooms, or other affordable housing options. She did report she is able to make calls to places. Agreeable to housing help info on AVS. SW faxed Waiver Referral. SW placed housing options on AVS Community Resource Packet provided to pt. SW placed ambulatory referral to Endocrinology. Assessment and Background Information: Living Arrangements: Homeless Support Systems: Family members Assistance Needed: denies Type of Residence: (Hotel) Prior to Admission Home Care Services: No [facility] 02-18-2023 Note Formatting of this n ote might be different from the original. Patient seen and examined at bedside during morning rounds. Admitted this morning for evaluation of chest pain. Feeling better; no acute distress. denies any shortness of breath, palpitation, chest pain, fever, chills, cough, nausea, vomiting, diarrhea, constipation or headache. Labs and imaging studies reviewed Nuclear stress test has been ordered We will obtain 2D echo Rest of management as per H&P [facility] 02-18-2023 Note Formatting of this n ote might be different from the original. Problem: Actual or potential alteration in health Goal: Absence of healthcare acquired conditions Outcome: Partially Met Goal: Knowledge of Interdisciplinary Plan of Care Outcome: Partially Met Goal: Knowledge of Enviroment Outcome: Partially Met Problem: Pain Goal: Manage acute pain Outcome: Partially Met Goal: Manage chronic pain Outcome: Partially Met Goal: Reduced pain sensation Outcome: Partially Met Goal: Achievement of comfort function goal Outcome: Partially Met Problem: Falls, Risk of Goal: Absence of falls Outcome: Partially Met T [facility] 02-18-2023 Physician Emergency department Note Associated Order(s): ECG 12 Lead Images from the original note were not included. ED PROVIDER NOTE [facility] EMERGENCY DEPARTMENT NAME: Addie Organ AGE: 47 y.o. : 1975 VISIT DATE: 02/17/2023 [facility]: [id number] PCP: System, Provider Not In Clinical Impression: 1. Chest pain, unspecified type 2. Flank pain ED Disposition ED Disposition Hospitalize Condition -- Comment Recommended Level of Care: Med Surg Phone call required?: No Follow-up Information Follow-up information has not been specified. Contact information for after-discharge care Follow-up information has not been specified. Medical Decision Making I reviewed prior [facility] records, patient is agreeable to labs and imaging as ordered after we discussed risks and indications, patient presents with chest pain, differential diagnosis includes ACS, arrhythmia, ACS, pneumonia, pneumothorax, infection, pleurisy, she also has some flank and abdominal pain, differential diagnosis includes pyelonephritis, urolithiasis, injury, bowel obstruction, other emergent process, overall she is awake and alert, appears uncomfortable upon initial evaluation, labs with no leukocytosis or anemia, hyperglycemia at 347 with normal anion gap, electrolytes and LFTs unremarkable, urinalysis without overt evidence of infection, troponin mildly elevated at 20 similar to previous, x-ray and CT per radiology read as noted in report, I reviewed some images as well. My review of x-ray do not see any overt evidence of acute infiltrate or pneumothorax, unclear if port access is in correct placement, this was removed by nursing staff and really applied with improved results regarding when port was flushed. Patient is awake and alert, had marked improvement after Nitropaste, also had some improvement with morphine, I did discuss with her various concerns, did discuss indications for 3-hour troponin with potential for outpatient management which she states that this feels similar to her previous cardiac issues and she is quite uncomfortable with that plan, .I reviewed the patient's case with [facility] hospitalist whom accepted the patient for further management and monitoring. Amount and/or Complexity of Data Reviewed External Data Reviewed: notes. Details: Previous documentation of history of CAD noted in epic, patient reports Labs: ordered. Decision-making details documented in ED Course. Radiology: ordered and independent interpretation performed. Decision-making details documented in ED Course. ECG/medicine tests: ordered and independent interpretation performed. Decision-making details documented in ED Course. Risk Parenteral controlled substances. Decision regarding hospitalization. Chief Complaint Patient presents with Chest Pain Patient presents with chest pain that started a couple hours prior to arrival, substernal, heaviness and tightness, mild shortness of breath but more so chest tightness, did feel sweaty at the time, onset while at rest, states that she has also been having recent issues with right flank and abdominal pain, unsure if like previous issues, she states she has a history of cardiac arrest with placement of defibrillator, has been told she has CAD but does not believe she has any stents placed, cannot remember when her last cardiac cath was, some improvement with aspirin and nitro in route by EMS, maximum pain was 10 out of 10, currently 6 out of 10, denies fevers, fall or injury, hemoptysis, acute focal numbness or weakness, reports taking her medications including her Keppra as instructed, states she has been feeling dizzy, more so lightheaded but sometimes room spinning, that has been an issue for some time previously, denies any current additional neuro concerns or changes Past Medical History: Diagnosis Date Anxiety Bipolar 1 disorder (HCC) Bipolar disorder (HCC) Chronic back pain Coronary artery disease Depression Diabetes mellitus (HCC) Hypertension MRSA (methicillin resistant Staphylococcus aureus) Pacemaker Seizures (HCC) Stroke (HCC) Past Surgical History: Procedure Laterality Date CHOLECYSTECTOMY FOOT SURGERY HYSTERECTOMY ORTHOPEDIC SURGERY left foot surgery PACEMAKER INSERTION Family History Problem Relation Age of Onset Hypertension Father Diabetes type II Father Seizures Mother Social History Socioeconomic History Marital status: Tobacco Use Smoking status: Every Day Packs/day: 1.00 Years: 18.00 Additional pack years: 0.00 Total pack years: 18.00 Types: Cigarettes Start date: 09/30/2014 Smokeless tobacco: Never Vaping Use Vaping Use: Every day Substances: Nicotine, Flavoring Devices: Pre-filled or refillable cartridge Substance and Sexual Activity Alcohol use: No Alcohol/week: 0.0 standard drinks of alcohol Drug use: No Social Determinants of Health Financial Resource Strain: High Risk (01/14/2023) Overall Financial Resource Strain (CARDIA) Difficulty of Paying Living Expenses: Hard Housing Stability: High Risk (01/14/2023) Housing Stability Vital Sign Unable to Pay for Housing in the Last Year: Yes Unstable Housing in the Last Year: Yes Previous Medications Medication Sig insulin lispro (HumaLOG) 100 unit/mL injection Inject under the skin See Admin Instructions Inject up to 150 units once daily via pump . levETIRAcetam (KEPPRA) 1000 MG tablet Take 1 (one) tablet (1,000 mg total) by mouth 2 (two) times a day . levothyroxine (SYNTHROID, LEVOTHROID) 75 MCG tablet Take 1 (one) tablet (75 mcg total) by mouth . lisinopriL (PRINIVIL,ZESTRIL) 40 MG tablet Take 1 (one) tablet (40 mg total) by mouth daily . metoprolol succinate (TOPROL-XL) 50 MG 24 hr tablet Take by mouth . Omnipod Insulin Refill Crtg pregabalin (LYRICA) 75 MG capsule Take 1 (one) capsule (75 mg total) by mouth 2 (two) times a day . QUEtiapine (SEROQUEL) 400 MG tablet Take 2 (two) tablets (800 mg total) by mouth nightly . tiZANidine (Zanaflex) 6 MG capsule Take 2 (two) capsules (12 mg total) by mouth at bedtime . traZODone (DESYREL) 50 MG tablet Take 1 (one) tablet (50 mg total) by mouth at bedtime as needed . diclofenac sodium 3 % Gel Apply 1 application. topically 2 (two) times a day for 5 days . (Patient not taking: Reported on 02/17/2023 .) fluticasone-salmeterol (ADVAIR DISKUS) 250-50 mcg/dose diskus inhaler Inhale 1 (one) puff 2 (two) times a day . insulin glargine (LANTUS SOLOSTAR/BASAGLAR KWIKPEN) 100 unit/mL (3 mL) InPn Inject 25 (twenty five) Units under the skin nightly . metFORMIN (GLUCOPHAGE) 1000 MG tablet Take 1 (one) tablet (1,000 mg total) by mouth 2 (two) times a day . omeprazole (PRILOSEC) 40 MG capsule Take 1 (one) capsule (40 mg total) by mouth 2 (two) times a day . ondansetron (ZOFRAN-ODT) 4 MG disintegrating tablet Dissolve 1 (one) tablet (4 mg total) on top of tongue every 8 (eight) hours as needed for nausea . (Patient not taking: Reported on 02/17/2023 .) Allergies Allergen Reactions Iodides Other (See Comments) Renal compromise Ketorolac Hives, Other (See Comments), Rash and GI Intolerance Messes with seizures Unsure of reaction Tramadol Hives, Rash, Other (See Comments) and GI Intolerance Codeine Other reaction(s): Aggressive Behavior Propoxyphene N-Acetaminophen GI Intolerance Adhesive Itching Ct: Iodinated Contrast- Oral And Iv Dye Other (See Comments) Shuts my kidneys down Fentanyl Ibuprofen Other (See Comments) shuts kidney down Latex Dermatitis Linezolid Nausea And Vomiting and GI Intolerance Lorazepam Other (See Comments) Nsaids (Non-Steroidal Anti-Inflammatory Drug) shuts my kidney's down Vancomycin Other (See Comments) Shuts kidney down Propoxyphene GI Intolerance Review of Systems Constitutional: Negative for fever. HENT: Negative for congestion. Respiratory: Positive for shortness of breath. Cardiovascular: Positive for chest pain. Negative for palpitations. Leg swelling: no acute changes. Gastrointestinal: Positive for abdominal pain and nausea. Negative for blood in stool, diarrhea and vomiting. Genitourinary: Negative for dysuria and hematuria. Musculoskeletal: Back pain: R flank pain. Skin: Negative for rash and wound. Neurological: Positive for dizziness. Negative for syncope, speech difficulty and headaches. Seizures: denies acute changes. Denies acute focal numbness or weakness Hematological: Does not bruise/bleed easily. Psychiatric/Behavioral: Negative for confusion. Patient Vitals for the past 24 hrs: BP Temp Temp src Pulse Resp SpO2 Height Weight 02/17/23 2259 (!) 151/109 -- -- 91 18 98 % -- -- 02/17/232257 -- -- -- -- 16 -- -- -- 02/17/231 (!) 158/103 -- -- 88 -- 96 % -- -- 02/17/232129 -- -- -- -- 18 -- -- -- 02/17/232121 (!) 157/112 -- -- -- 18 -- -- -- 02/17/232119 -- 98.4 F (36.9 C) Oral 98 -- 98 % 5' 2 113.4 kg (250 lb) Physical Exam Vitals and nursing note reviewed. Constitutional: General: She is not in acute distress. HENT: Mouth/Throat: Mouth: Mucous membranes are moist. Eyes: Pupils: Pupils are equal, round, and reactive to light. Cardiovascular: Rate and Rhythm: Normal rate and regular rhythm. Pulses: Normal pulses. Musculoskeletal: Cervical back: Neck supple. No tenderness. Comments: Some right lateral flank pain to palpation, no ecchymosis noted, no midline spine step-off, no acute appearing lower extremity edema or calf pain to palpation Pulmonary: Effort: Pulmonary effort is normal. No respiratory distress. Breath sounds: No wheezing or rales. Chest: Chest wall: No tenderness. Abdominal: General: Bowel sounds are normal. There is no distension. Palpations: Abdomen is soft. Tenderness: There is abdominal tenderness (mild R lateral). There is no right CVA tenderness, left CVA tenderness or guarding. Skin: General: Skin is warm and dry. Capillary Refill: Capillary refill takes less than 2 seconds. Neurological: Mental Status: She is alert. Comments: Speech is clear, patient answers questions appropriately, noted to move all extremities during evaluation with baseline strength and coordination as tested Psychiatric: Comments: Cooperative, good eye contact Laboratory & Radiographic Imaging (if done): Results for orders placed or performed during the hospital encounter of 02/17/23 Troponin x 2 (Now and Repeat in 3 hours) Result Value Ref Range Troponin T 20 (CH) <=14 ng/L Troponin T Interpretation Possible acute cardiac injury. Gold Top Result Value Ref Range Extra Tube Hold for add-ons. Light Blue Top Result Value Ref Range Extra Tube Hold for add-ons. Comprehensive Metabolic Panel Result Value Ref Range Sodium 135 135 - 145 mmol/L Potassium 4.3 3.5 - 5.1 mmol/L Chloride 101 98 - 108 mmol/L Bicarbonate 23 21 - 32 mmol/L Anion Gap 15 10 - 20 mmol/L Glucose 347 (H) 65 - 99 mg/dL BUN 14 8 - 25 mg/dL Creatinine 1.00 0.40 - 1.10 mg/dL eGFR 71 >=60 mL/min/1.73 m2 BUN/Creatinine Ratio 14.0 10.0 - 20.0 Total Protein 6.7 6.0 - 8.0 g/dL Albumin 3.8 3.2 - 5.2 g/dL Calcium 9.2 8.4 - 10.2 mg/dL Alkaline Phosphatase 134 40 - 150 U/L AST 9 0-35 U/L U/L ALT 8 0-35 U/L U/L Total Bilirubin 0.3 0.0 - 1.3 mg/dL Lipase Result Value Ref Range Lipase 35 15 - 65 U/L Urinalysis Result Value Ref Range Color, Urine Yellow Colorless, Yellow Clarity, Urine Hazy (A) Clear Specific [place] 1.025 1.005 - 1.025 pH, Urine 5.0 5.0 - 7.0 Protein, Urine 100 (A) Negative mg/dL Glucose, Urine >=500 (A) Negative mg/dL Ketones, Urine Negative Negative mg/dL Bilirubin, Urine Negative Negative Urobilinogen, Urine <2.0 <2.0 mg/dL Blood, Urine Small (A) Negative Nitrite, Urine Negative Negative Leukocyte Esterase, Urine Negative Negative WBCs, Urine 11 (H) 0 - 5 /hpf RBCs, Urine 2 0 - 3 /hpf Bacteria, Urine None Seen None Seen /hpf WBC Clumps, Urine Rare (A) None Seen /hpf Squamous Epithelial 3 0 - 4 /hpf Hyaline Casts 3-5 (A) 0 - 2 /lpf Mucus, Urine Rare None Seen, Rare /lpf CBC Auto Differential Result Value Ref Range WBC 8.82 4.50 - 11.00 K/mcL RBC 4.33 4.00 - 5.20 M/mcL Hemoglobin 12.8 12.0 - 16.0 g/dL Hematocrit 37.9 36.0 - 46.0 % MCV 87.5 80.0 - 100.0 fL MCH 29.6 26.0 - 34.0 pg MCHC 33.8 31.0 - 37.0 g/dL Platelets 318 150 - 400 K/mcL RDW - CV 13.0 11.6 - 14.8 % MPV 9.4 9.4 - 12.4 fL Neutrophils 65.2 % Lymphocytes 25.9 % Monocytes 5.2 % Eosinophils 2.4 % Basophils 0.8 % IG Percent 0.50 % Neutrophils Abs 5.76 1.70 - 7.00 K/mcL Lymphocytes Abs 2.28 0.90 - 4.00 K/mcL Monocytes Abs 0.46 0.30 - 0.90 K/mcL Eosinophils Abs 0.21 0.00 - 0.50 K/mcL Basophils Abs 0.07 0.00 - 0.30 K/mcL IG Absolute 0.04 0.00 - 0.30 K/mcL Nucleated RBC 0.0 % Nucleated RBC Abs 0.00 0.00 - 0.00 K/mcL CT Chest Abdomen Pelvis Without Contrast Final Result 1. No acute findings in the chest, abdomen, or pelvis. 2. Chronic and incidental findings as above. DEEPA/mkv Workstation ID: [id number] CT Head Or Brain Without Contrast Final Result 1. No acute intracranial abnormality. Workstation ID: [id number] XR Chest 1 View Final Result Low lung volumes with bronchovascular crowding. No airspace consolidation. Workstation ID: [id number] ECG 12 Lead Date/Time: 02/17/2023 9:36 PM Performed by: Hayde Pickering DO Authorized by: Hayde Pickering DO Interpreted by ED attending physician Comparison: compared with previous ECG Rhythm: sinus rhythm BPM: 96 Other findings: LELA Clinical impression: abnormal ECG . Discontinued Medications Disp Refills Start End atorvastatin (LIPITOR) 40 MG tablet 1 03/08/2015 02/17/2023 Class: Historical Med busPIRone (BUSPAR) 15 MG tablet 05/03/2020 02/17/2023 Class: Historical Med busPIRone (BUSPAR) 30 MG tablet 05/31/2020 02/17/2023 Class: Historical Med cyclobenzaprine (FLEXERIL) 10 MG tablet 15 tablet 0 06/26/2017 02/17/2023 Sig: Take 1 (one) tablet (10 mg total) by mouth 3 (three) times a day as needed for muscle spasms. Class: Print Route: Oral divalproex (DEPAKOTE) 500 MG delayed release (DR) tablet 05/31/2020 02/17/2023 Class: Historical Med Emgality Pen 120 mg/mL Pen 06/01/2020 02/17/2023 Class: Historical Med HYDROcodone-acetaminophen (NORCO) 5-325 mg per tablet 14 tablet 0 01/25/2023 02/17/2023 Sig: Take 1 (one) tablet by mouth every 6 (six) hours as needed for pain . Earliest Fill Date: 01/25/2023 Route: Oral hydrOXYzine (ATARAX) 25 MG tablet 05/31/2020 02/17/2023 Class: Historical Med metoprolol tartrate (LOPRESSOR) 25 MG tablet 02/17/2023 Class: Historical Med tiZANidine (ZANAFLEX) 2 MG tablet 05/09/2020 02/17/2023 Class: Historical Med Vraylar 6 mg cap 05/31/2020 02/17/2023 Class: Historical Med ED SCORING TOOLS HEART Score History: Slightly suspicious ECG: Normal Age: 45-64 Risk Factors: >2 risk factors or hx of atherosclerotic disease Troponin: 1-3 times normal limit HEART Score: 4 DO Ladan Gonzalez Karen Michelle, DO 02/18/23 0040 [facility] 02-18-2023 Emergency department Note Associated Order(s): ECG 12 Lead Images from the original note were not included. ED PROVIDER NOTE [facility] EMERGENCY DEPARTMENT NAME: Addie Organ AGE: 47 y.o. : 1975 VISIT DATE: 02/17/2023 CSN: [id number] PCP: System, Provider Not In Clinical Impression: 1. Chest pain, unspecified type 2. Flank pain ED Disposition ED Disposition Hospitalize Condition -- Comment Recommended Level of Care: Med Surg Phone call required?: No Follow-up Information Follow-up information has not been specified. Contact information for after-discharge care Follow-up information has not been specified. Medical Decision Making I reviewed prior Epic records, patient is agreeable to labs and imaging as ordered after we discussed risks and indications, patient presents with chest pain, differential diagnosis includes ACS, arrhythmia, ACS, pneumonia, pneumothorax, infection, pleurisy, she also has some flank and abdominal pain, differential diagnosis includes pyelonephritis, urolithiasis, injury, bowel obstruction, other emergent process, overall she is awake and alert, appears uncomfortable upon initial evaluation, labs with no leukocytosis or anemia, hyperglycemia at 347 with normal anion gap, electrolytes and LFTs unremarkable, urinalysis without overt evidence of infection, troponin mildly elevated at 20 similar to previous, x-ray and CT per radiology read as noted in report, I reviewed some images as well. My review of x-ray do not see any overt evidence of acute infiltrate or pneumothorax, unclear if port access is in correct placement, this was removed by nursing staff and really applied with improved results regarding when port was flushed. Patient is awake and alert, had marked improvement after Nitropaste, also had some improvement with morphine, I did discuss with her various concerns, did discuss indications for 3-hour troponin with potential for outpatient management which she states that this feels similar to her previous cardiac issues and she is quite uncomfortable with that plan, .I reviewed the patient's case with [facility] hospitalist whom accepted the patient for further management and monitoring. Amount and/or Complexity of Data Reviewed External Data Reviewed: notes. Details: Previous documentation of history of CAD noted in epic, patient reports Labs: ordered. Decision-making details documented in ED Course. Radiology: ordered and independent interpretation performed. Decision-making details documented in ED Course. ECG/medicine tests: ordered and independent interpretation performed. Decision-making details documented in ED Course. Risk Parenteral controlled substances. Decision regarding hospitalization. Chief Complaint Patient presents with Chest Pain Patient presents with chest pain that started a couple hours prior to arrival, substernal, heaviness and tightness, mild shortness of breath but more so chest tightness, did feel sweaty at the time, onset while at rest, states that she has also been having recent issues with right flank and abdominal pain, unsure if like previous issues, she states she has a history of cardiac arrest with placement of defibrillator, has been told she has CAD but does not believe she has any stents placed, cannot remember when her last cardiac cath was, some improvement with aspirin and nitro in route by EMS, maximum pain was 10 out of 10, currently 6 out of 10, denies fevers, fall or injury, hemoptysis, acute focal numbness or weakness, reports taking her medications including her Keppra as instructed, states she has been feeling dizzy, more so lightheaded but sometimes room spinning, that has been an issue for some time previously, denies any current additional neuro concerns or changes Past Medical History: Diagnosis Date Anxiety Bipolar 1 disorder (HCC) Bipolar disorder (HCC) Chronic back pain Coronary artery disease Depression Diabetes mellitus (HCC) Hypertension MRSA (methicillin resistant Staphylococcus aureus) Pacemaker Seizures (HCC) Stroke (HCC) Past Surgical History: Procedure Laterality Date CHOLECYSTECTOMY FOOT SURGERY HYSTERECTOMY ORTHOPEDIC SURGERY left foot surgery PACEMAKER INSERTION Family History Problem Relation Age of Onset Hypertension Father Diabetes type II Father Seizures Mother Social History Socioeconomic History Marital status: Tobacco Use Smoking status: Every Day Packs/day: 1.00 Years: 18.00 Additional pack years: 0.00 Total pack years: 18.00 Types: Cigarettes Start date: 09/30/2014 Smokeless tobacco: Never Vaping Use Vaping Use: Every day Substances: Nicotine, Flavoring Devices: Pre-filled or refillable cartridge Substance and Sexual Activity Alcohol use: No Alcohol/week: 0.0 standard drinks of alcohol Drug use: No Social Determinants of Health Financial Resource Strain: High Risk (01/14/2023) Overall Financial Resource Strain (CARDIA) Difficulty of Paying Living Expenses: Hard Housing Stability: High Risk (01/14/2023) Housing Stability Vital Sign Unable to Pay for Housing in the Last Year: Yes Unstable Housing in the Last Year: Yes Previous Medications Medication Sig insulin lispro (HumaLOG) 100 unit/mL injection Inject under the skin See Admin Instructions Inject up to 150 units once daily via pump . levETIRAcetam (KEPPRA) 1000 MG tablet Take 1 (one) tablet (1,000 mg total) by mouth 2 (two) times a day . levothyroxine (SYNTHROID, LEVOTHROID) 75 MCG tablet Take 1 (one) tablet (75 mcg total) by mouth . lisinopriL (PRINIVIL,ZESTRIL) 40 MG tablet Take 1 (one) tablet (40 mg total) by mouth daily . metoprolol succinate (TOPROL-XL) 50 MG 24 hr tablet Take by mouth . Omnipod Insulin Refill Crtg pregabalin (LYRICA) 75 MG capsule Take 1 (one) capsule (75 mg total) by mouth 2 (two) times a day . QUEtiapine (SEROQUEL) 400 MG tablet Take 2 (two) tablets (800 mg total) by mouth nightly . tiZANidine (Zanaflex) 6 MG capsule Take 2 (two) capsules (12 mg total) by mouth at bedtime . traZODone (DESYREL) 50 MG tablet Take 1 (one) tablet (50 mg total) by mouth at bedtime as needed . diclofenac sodium 3 % Gel Apply 1 application. topically 2 (two) times a day for 5 days . (Patient not taking: Reported on 02/17/2023 .) fluticasone-salmeterol (ADVAIR DISKUS) 250-50 mcg/dose diskus inhaler Inhale 1 (one) puff 2 (two) times a day . insulin glargine (LANTUS SOLOSTAR/BASAGLAR KWIKPEN) 100 unit/mL (3 mL) InPn Inject 25 (twenty five) Units under the skin nightly . metFORMIN (GLUCOPHAGE) 1000 MG tablet Take 1 (one) tablet (1,000 mg total) by mouth 2 (two) times a day . omeprazole (PRILOSEC) 40 MG capsule Take 1 (one) capsule (40 mg total) by mouth 2 (two) times a day . ondansetron (ZOFRAN-ODT) 4 MG disintegrating tablet Dissolve 1 (one) tablet (4 mg total) on top of tongue every 8 (eight) hours as needed for nausea . (Patient not taking: Reported on 02/17/2023 .) Allergies Allergen Reactions Iodides Other (See Comments) Renal compromise Ketorolac Hives, Other (See Comments), Rash and GI Intolerance Messes with seizures Unsure of reaction Tramadol Hives, Rash, Other (See Comments) and GI Intolerance Codeine Other reaction(s): Aggressive Behavior Propoxyphene N-Acetaminophen GI Intolerance Adhesive Itching Ct: Iodinated Contrast- Oral And Iv Dye Other (See Comments) Shuts my kidneys down Fentanyl Ibuprofen Other (See Comments) shuts kidney down Latex Dermatitis Linezolid Nausea And Vomiting and GI Intolerance Lorazepam Other (See Comments) Nsaids (Non-Steroidal Anti-Inflammatory Drug) shuts my kidney's down Vancomycin Other (See Comments) Shuts kidney down Propoxyphene GI Intolerance Review of Systems Constitutional: Negative for fever. HENT: Negative for congestion. Respiratory: Positive for shortness of breath. Cardiovascular: Positive for chest pain. Negative for palpitations. Leg swelling: no acute changes. Gastrointestinal: Positive for abdominal pain and nausea. Negative for blood in stool, diarrhea and vomiting. Genitourinary: Negative for dysuria and hematuria. Musculoskeletal: Back pain: R flank pain. Skin: Negative for rash and wound. Neurological: Positive for dizziness. Negative for syncope, speech difficulty and headaches. Seizures: denies acute changes. Denies acute focal numbness or weakness Hematological: Does not bruise/bleed easily. Psychiatric/Behavioral: Negative for confusion. Patient Vitals for the past 24 hrs: BP Temp Temp src Pulse Resp SpO2 Height Weight 02/17/23 2259 (!) 151/109 -- -- 91 18 98 % -- -- 02/17/232257 -- -- -- -- 16 -- -- -- 02/17/232230 (!) 158/103 -- -- 88 -- 96 % -- -- 02/17/232129 -- -- -- -- 18 -- -- -- 02/17/232121 (!) 157/112 -- -- -- 18 -- -- -- 02/17/232119 -- 98.4 F (36.9 C) Oral 98 -- 98 % 5' 2 113.4 kg (250 lb) Physical Exam Vitals and nursing note reviewed. Constitutional: General: She is not in acute distress. HENT: Mouth/Throat: Mouth: Mucous membranes are moist. Eyes: Pupils: Pupils are equal, round, and reactive to light. Cardiovascular: Rate and Rhythm: Normal rate and regular rhythm. Pulses: Normal pulses. Musculoskeletal: Cervical back: Neck supple. No tenderness. Comments: Some right lateral flank pain to palpation, no ecchymosis noted, no midline spine step-off, no acute appearing lower extremity edema or calf pain to palpation Pulmonary: Effort: Pulmonary effort is normal. No respiratory distress. Breath sounds: No wheezing or rales. Chest: Chest wall: No tenderness. Abdominal: General: Bowel sounds are normal. There is no distension. Palpations: Abdomen is soft. Tenderness: There is abdominal tenderness (mild R lateral). There is no right CVA tenderness, left CVA tenderness or guarding. Skin: General: Skin is warm and dry. Capillary Refill: Capillary refill takes less than 2 seconds. Neurological: Mental Status: She is alert. Comments: Speech is clear, patient answers questions appropriately, noted to move all extremities during evaluation with baseline strength and coordination as tested Psychiatric: Comments: Cooperative, good eye contact Laboratory & Radiographic Imaging (if done): Results for orders placed or performed during the hospital encounter of 02/17/23 Troponin x 2 (Now and Repeat in 3 hours) Result Value Ref Range Troponin T 20 (CH) <=14 ng/L Troponin T Interpretation Possible acute cardiac injury. Gold Top Result Value Ref Range Extra Tube Hold for add-ons. Light Blue Top Result Value Ref Range Extra Tube Hold for add-ons. Comprehensive Metabolic Panel Result Value Ref Range Sodium 135 135 - 145 mmol/L Potassium 4.3 3.5 - 5.1 mmol/L Chloride 101 98 - 108 mmol/L Bicarbonate 23 21 - 32 mmol/L Anion Gap 15 10 - 20 mmol/L Glucose 347 (H) 65 - 99 mg/dL BUN 14 8 - 25 mg/dL Creatinine 1.00 0.40 - 1.10 mg/dL eGFR 71 >=60 mL/min/1.73 m2 BUN/Creatinine Ratio 14.0 10.0 - 20.0 Total Protein 6.7 6.0 - 8.0 g/dL Albumin 3.8 3.2 - 5.2 g/dL Calcium 9.2 8.4 - 10.2 mg/dL Alkaline Phosphatase 134 40 - 150 U/L AST 9 0-35 U/L U/L ALT 8 0-35 U/L U/L Total Bilirubin 0.3 0.0 - 1.3 mg/dL Lipase Result Value Ref Range Lipase 35 15 - 65 U/L Urinalysis Result Value Ref Range Color, Urine Yellow Colorless, Yellow Clarity, Urine Hazy (A) Clear Specific [place] 1.025 1.005 - 1.025 pH, Urine 5.0 5.0 - 7.0 Protein, Urine 100 (A) Negative mg/dL Glucose, Urine >=500 (A) Negative mg/dL Ketones, Urine Negative Negative mg/dL Bilirubin, Urine Negative Negative Urobilinogen, Urine <2.0 <2.0 mg/dL Blood, Urine Small (A) Negative Nitrite, Urine Negative Negative Leukocyte Esterase, Urine Negative Negative WBCs, Urine 11 (H) 0 - 5 /hpf RBCs, Urine 2 0 - 3 /hpf Bacteria, Urine None Seen None Seen /hpf WBC Clumps, Urine Rare (A) None Seen /hpf Squamous Epithelial 3 0 - 4 /hpf Hyaline Casts 3-5 (A) 0 - 2 /lpf Mucus, Urine Rare None Seen, Rare /lpf CBC Auto Differential Result Value Ref Range WBC 8.82 4.50 - 11.00 K/mcL RBC 4.33 4.00 - 5.20 M/mcL Hemoglobin 12.8 12.0 - 16.0 g/dL Hematocrit 37.9 36.0 - 46.0 % MCV 87.5 80.0 - 100.0 fL MCH 29.6 26.0 - 34.0 pg MCHC 33.8 31.0 - 37.0 g/dL Platelets 318 150 - 400 K/mcL RDW - CV 13.0 11.6 - 14.8 % MPV 9.4 9.4 - 12.4 fL Neutrophils 65.2 % Lymphocytes 25.9 % Monocytes 5.2 % Eosinophils 2.4 % Basophils 0.8 % IG Percent 0.50 % Neutrophils Abs 5.76 1.70 - 7.00 K/mcL Lymphocytes Abs 2.28 0.90 - 4.00 K/mcL Monocytes Abs 0.46 0.30 - 0.90 K/mcL Eosinophils Abs 0.21 0.00 - 0.50 K/mcL Basophils Abs 0.07 0.00 - 0.30 K/mcL IG Absolute 0.04 0.00 - 0.30 K/mcL Nucleated RBC 0.0 % Nucleated RBC Abs 0.00 0.00 - 0.00 K/mcL CT Chest Abdomen Pelvis Without Contrast Final Result 1. No acute findings in the chest, abdomen, or pelvis. 2. Chronic and incidental findings as above. DEEPA/v Workstation ID: [id number] CT Head Or Brain Without Contrast Final Result 1. No acute intracranial abnormality. Workstation ID: [id number] XR Chest 1 View Final Result Low lung volumes with bronchovascular crowding. No airspace consolidation. Workstation ID: [id number] ECG 12 Lead Date/Time: 02/17/2023 9:36 PM Performed by: Hayed Pickering DO Authorized by: Hayde Pickering DO Interpreted by ED attending physician Comparison: compared with previous ECG Rhythm: sinus rhythm BPM: 96 Other findings: LELA Clinical impression: abnormal ECG . Discontinued Medications Disp Refills Start End atorvastatin (LIPITOR) 40 MG tablet 1 03/08/2015 02/17/2023 Class: Historical Med busPIRone (BUSPAR) 15 MG tablet 05/03/2020 02/17/2023 Class: Historical Med busPIRone (BUSPAR) 30 MG tablet 05/31/2020 02/17/2023 Class: Historical Med cyclobenzaprine (FLEXERIL) 10 MG tablet 15 tablet 0 06/26/2017 02/17/2023 Sig: Take 1 (one) tablet (10 mg total) by mouth 3 (three) times a day as needed for muscle spasms. Class: Print Route: Oral divalproex (DEPAKOTE) 500 MG delayed release (DR) tablet 05/31/2020 02/17/2023 Class: Historical Med Emgality Pen 120 mg/mL Pen 06/01/2020 02/17/2023 Class: Historical Med HYDROcodone-acetaminophen (NORCO) 5-325 mg per tablet 14 tablet 0 01/25/2023 02/17/2023 Sig: Take 1 (one) tablet by mouth every 6 (six) hours as needed for pain . Earliest Fill Date: 01/25/2023 Route: Oral hydrOXYzine (ATARAX) 25 MG tablet 05/31/2020 02/17/2023 Class: Historical Med metoprolol tartrate (LOPRESSOR) 25 MG tablet 02/17/2023 Class: Historical Med tiZANidine (ZANAFLEX) 2 MG tablet 05/09/2020 02/17/2023 Class: Historical Med Vraylar 6 mg cap 05/31/2020 02/17/2023 Class: Historical Med ED SCORING TOOLS HEART Score History: Slightly suspicious ECG: Normal Age: 45-64 Risk Factors: >2 risk factors or hx of atherosclerotic disease Troponin: 1-3 times normal limit HEART Score: 4 DO Ladan Gonzalez Karen Michelle, DO 02/18/23 0040 Patient is complaining of chest pain all over, a headache, and right sided abdominal pain that radiates to her back. Patient arrived from home via [facility] EMS report Patient has been complaining of some chest tightness and SOB since around 4pm. Patient indicated that she feels that her chest is tight and the room is spinning. Patient had normal vitals in route. Asprin and nitroglycerin given in route. See EMS report Bed: 10 Expected date: Expected time: Means of arrival: Comments: 26- CP documented in this encounter [facility] 02-18-2023 History and physical note [facility] Patient Name: Addie Jean Baptiste : 1975 MR #: [id number] Admit Date: 02/17/2023 Physicians: System, Provider Not In (Family); No ref. provider found (Referring) Addie Jean Baptiste is a 47 y.o. female patient of [facility], Provider Not In with history of diabetes, hypertension, hypothyroidism, COPD, and GERD, now presented to [facility] with chest pain. Chest pain Admit patient. Cycle troponins. Repeat EKG in AM. Will write for oxygen, and nitroglycerin. Patient has stated allergy to aspirin so will write for Plavix instead. We will place order for cardiac stress test at this time as well. Diabetes Temporarily hold home metformin for the moment. Continue home basal glargine. Supplement with standard sliding scale insulin with ACHS Accu-Cheks. Place patient on diabetic diet. Hypothyroidism Continue home Synthroid. Hypertension Continue home lisinopril. COPD Continue home Dulera and as needed albuterol. GERD Continue on Protonix. Morbid obesity Outpatient diet and exercise regimen. Evaluation for SEMAJ and/or continuation of home CPAP. BMI: 45.73. Residence prior to admission: house or apartment Was patient transferred from outlying hospital or ED no Quality Measures DVT Prophylaxis: lovenox Chow Catheter: absent Medication Reconciliation: Verified Risk variables present on admission: None. Please see assessment and plan for further details. Estimated Date of Discharge less than 2 midnights Code Status Full Code; code status verified on 02/18/2023 with patient (capacity intact) Chief Complaint chest pain. History of Present Illness Addie Jean Baptiste is a 47 y.o. female patient of System, Provider Not In with history of diabetes, hypertension, hypothyroidism, COPD, and GERD, now presented to [facility] with chest pain. Beginning around 4 PM, the patient developed new onset chest pain, described as a tightness sensation, localized to the right chest, constant since initial onset, radiating into the back, with associated shortness of breath, diaphoresis and palpitations. The patient denies any worsening of her chest pain in response to chest wall palpation, cough, deep breathing, or food intake. Past Medical History Past Medical History: Diagnosis Date Anxiety Bipolar 1 disorder (HCC) Bipolar disorder (HCC) Chronic back pain Coronary artery disease Depression Diabetes mellitus (HCC) Hypertension MRSA (methicillin resistant Staphylococcus aureus) Pacemaker Seizures (HCC) Stroke (HCC) Past Surgical History Past Surgical History: Procedure Laterality Date CHOLECYSTECTOMY FOOT SURGERY HYSTERECTOMY ORTHOPEDIC SURGERY left foot surgery PACEMAKER INSERTION Family History Family History Problem Relation Age of Onset Hypertension Father Diabetes type II Father Seizures Mother Social History Social History Tobacco Use Smoking Status Every Day Packs/day: 1.00 Years: 18.00 Additional pack years: 0.00 Total pack years: 18.00 Types: Cigarettes Start date: 09/30/2014 Smokeless Tobacco Never Social History Substance and Sexual Activity Alcohol Use No Alcohol/week: 0.0 standard drinks of alcohol Social History Substance and Sexual Activity Drug Use No Allergy Information I have reviewed the patient's allergies. Iodides, Ketorolac, Tramadol, Codeine, Propoxyphene n-acetaminophen, Adhesive, Ct: iodinated contrast- oral and iv dye, Fentanyl, Ibuprofen, Latex, Linezolid, Lorazepam, Nsaids (non-steroidal anti-inflammatory drug), Vancomycin, and Propoxyphene Home Medications Home medications were reviewed. Review Of Systems All relevant systems have been reviewed and are negative except as noted in HPI or below Constitutional: Denies fever, chills, weight loss Eyes: Denies vision changes ENT: Denies hearing loss, nasal congestion, sore throat MSK: Denies joint pain or swelling, restricted motion Integumentary: Denies skin changes, pruritis Neurological: Denies dizziness, headache, numbness or tingling Psychiatric: Denies depression, anxiety, sleep disturbance Endocrine: Denies heat or cold intolerance, excessive thirst Hematological: Denies abnormal bleeding or bruising Allergy/Immunological: Denies hives, swelling of lips or tongue Physical Examination BP (!) 151/109 Pulse 91 Temp 98.4 F (36.9 C) (Oral) Resp 18 Ht 5' 2 Wt 113.4 kg (250 lb) SpO2 98% BMI 45.73 kg/m General Appearance: alert; acutely ill appearing; in mild acute distress HEENT: Head- normocephalic; Eyes- EOMI, sclera anicteric; Throat- mucous membranes moist Cardiovascular: regular rate and rhythm; normal S1, S2; no murmurs, rubs, clicks or gallops; peripheral edema absent Respiratory: lungs clear to auscultation; without wheezes, rales or rhonchi; on room air Abdomen: soft, non-tender, non-distended Neurological: oriented x 3; normal speech; no focal findings or movement disorder noted Musculoskeletal: no significant deformity or tenderness to palpation Skin: normal coloration Psych: normal mood and affect [facility] 02-18-2023 History and physical note [facility] Patient Name: Addie Jean Baptiste : 1975 MR #: [id number] Admit Date: 02/17/2023 Physicians: System, Provider Not In (Family); No ref. provider found (Referring) Addie Jean Baptiste is a 47 y.o. female patient of System, Provider Not In with history of diabetes, hypertension, hypothyroidism, COPD, and GERD, now presented to [facility] with chest pain. Chest pain Admit patient. Cycle troponins. Repeat EKG in AM. Will write for oxygen, and nitroglycerin. Patient has stated allergy to aspirin so will write for Plavix instead. We will place order for cardiac stress test at this time as well. Diabetes Temporarily hold home metformin for the moment. Continue home basal glargine. Supplement with standard sliding scale insulin with ACHS Accu-Cheks. Place patient on diabetic diet. Hypothyroidism Continue home Synthroid. Hypertension Continue home lisinopril. COPD Continue home Dulera and as needed albuterol. GERD Continue on Protonix. Morbid obesity Outpatient diet and exercise regimen. Evaluation for SEMAJ and/or continuation of home CPAP. BMI: 45.73. Residence prior to admission: house or apartment Was patient transferred from outlying hospital or ED no Quality Measures DVT Prophylaxis: lovenox Chow Catheter: absent Medication Reconciliation: Verified Risk variables present on admission: None. Please see assessment and plan for further details. Estimated Date of Discharge less than 2 midnights Code Status Full Code; code status verified on 02/18/2023 with patient (capacity intact) Chief Complaint chest pain. History of Present Illness Addie Jean Baptiste is a 47 y.o. female patient of System, Provider Not In with history of diabetes, hypertension, hypothyroidism, COPD, and GERD, now presented to [facility] with chest pain. Beginning around 4 PM, the patient developed new onset chest pain, described as a tightness sensation, localized to the right chest, constant since initial onset, radiating into the back, with associated shortness of breath, diaphoresis and palpitations. The patient denies any worsening of her chest pain in response to chest wall palpation, cough, deep breathing, or food intake. Past Medical History Past Medical History: Diagnosis Date Anxiety Bipolar 1 disorder (HCC) Bipolar disorder (HCC) Chronic back pain Coronary artery disease Depression Diabetes mellitus (HCC) Hypertension MRSA (methicillin resistant Staphylococcus aureus) Pacemaker Seizures (HCC) Stroke (HCC) Past Surgical History Past Surgical History: Procedure Laterality Date CHOLECYSTECTOMY FOOT SURGERY HYSTERECTOMY ORTHOPEDIC SURGERY left foot surgery PACEMAKER INSERTION Family History Family History Problem Relation Age of Onset Hypertension Father Diabetes type II Father Seizures Mother Social History Social History Tobacco Use Smoking Status Every Day Packs/day: 1.00 Years: 18.00 Additional pack years: 0.00 Total pack years: 18.00 Types: Cigarettes Start date: 09/30/2014 Smokeless Tobacco Never Social History Substance and Sexual Activity Alcohol Use No Alcohol/week: 0.0 standard drinks of alcohol Social History Substance and Sexual Activity Drug Use No Allergy Information I have reviewed the patient's allergies. Iodides, Ketorolac, Tramadol, Codeine, Propoxyphene n-acetaminophen, Adhesive, Ct: iodinated contrast- oral and iv dye, Fentanyl, Ibuprofen, Latex, Linezolid, Lorazepam, Nsaids (non-steroidal anti-inflammatory drug), Vancomycin, and Propoxyphene Home Medications Home medications were reviewed. Review Of Systems All relevant systems have been reviewed and are negative except as noted in HPI or below Constitutional: Denies fever, chills, weight loss Eyes: Denies vision changes ENT: Denies hearing loss, nasal congestion, sore throat MSK: Denies joint pain or swelling, restricted motion Integumentary: Denies skin changes, pruritis Neurological: Denies dizziness, headache, numbness or tingling Psychiatric: Denies depression, anxiety, sleep disturbance Endocrine: Denies heat or cold intolerance, excessive thirst Hematological: Denies abnormal bleeding or bruising Allergy/Immunological: Denies hives, swelling of lips or tongue Physical Examination BP (!) 151/109 Pulse 91 Temp 98.4 F (36.9 C) (Oral) Resp 18 Ht 5' 2 Wt 113.4 kg (250 lb) SpO2 98% BMI 45.73 kg/m General Appearance: alert; acutely ill appearing; in mild acute distress HEENT: Head- normocephalic; Eyes- EOMI, sclera anicteric; Throat- mucous membranes moist Cardiovascular: regular rate and rhythm; normal S1, S2; no murmurs, rubs, clicks or gallops; peripheral edema absent Respiratory: lungs clear to auscultation; without wheezes, rales or rhonchi; on room air Abdomen: soft, non-tender, non-distended Neurological: oriented x 3; normal speech; no focal findings or movement disorder noted Musculoskeletal: no significant deformity or tenderness to palpation Skin: normal coloration Psych: normal mood and affect documented in this encounter [facility] 02-17-2023 Emergency department Note Patient is complaining of chest pain all over, a headache, and right sided abdominal pain that radiates to her back. [facility] 02-17-2023 Emergency department Note Patient arrived from home via [facility] EMS report Patient has been complaining of some chest tightness and SOB since around 4pm. Patient indicated that she feels that her chest is tight and the room is spinning. Patient had normal vitals in route. Asprin and nitroglycerin given in route. See EMS report [facility] 02-17-2023 Emergency department Note Bed: 10 Expected date: Expected time: Means of arrival: Comments: 26- CP [facility] 02-09-2023 Instructions Josué Christianson, - 02/09/2023 3:52 PM EDT Images from the original note were not included. Sacroiliac Rehabilitation Exercises These exercises are designed to gently move your sacroiliac joint. Do not do these exercises if they cause any pain or discomfort. If your pain continues see your healthcare provider or physical therapist as soon as possible. Hamstring stretch on wall: Lie on your back with your buttocks close to a doorway, and extend your legs straight out in front of you along the floor. Raise one leg and rest it against the wall next to the door frame. Your other leg should extend through the doorway. You should feel a stretch in the back of your thigh. Hold this position for 15 to 30 seconds. Repeat 3 times and then switch legs and do the exercise again. Quadriceps stretch: Stand an arm's length away from the wall with your injured leg farthest from the wall. Facing straight ahead, brace yourself by keeping one hand against the wall. With your other hand, grasp the ankle of your injured leg and pull your heel toward your buttocks. Don't arch or twist your back. Keep your knees together. Hold this stretch for 15 to 30 seconds. Hip adductor stretch: Lie on your back, bend your knees, and put your feet flat on the floor. Gently spread your knees apart, stretching the muscles on the inside of your thigh. Hold this for 15 to 30 seconds. Repeat 3 times. Isometric hip adduction: Sit with your knees bent 90 with a pillow placed between your knees and your feet flat on the floor. Squeeze the pillow for 5 seconds and then relax. Do 3 sets of 10. Gluteal Sets: Lie on your stomach with your legs straight out behind you. Squeeze your buttock muscles together and hold for 5 seconds. Release. Do 3 sets of 10. Lower trunk rotation: Lie on your back with your knees bent and your feet flat on the floor. Tighten your abdominal muscles and push your lower back into the floor. Keeping your shoulders down flat, gently rotate your legs to one side, then to the other side as far as you can. Repeat 10 to 20 times. Single knee to chest stretch: Lie on your back with your legs straight out in front of you. Bring one knee up to your chest and grasp the back of your thigh. Pull your knee toward your chest, stretching your buttock muscle. Hold this position for 15 to 30 seconds and return to the starting position. Repeat 3 times on each side. Double knee to chest: Lie on your back with your knees bent and your feet flat on the floor. Tighten your abdominal muscles and push your lower back into the floor. Pull both knees up to your chest. Hold for 5 seconds and repeat 10 to 20 times. Developed by [employer]. Published by [employer]. 2009 [facility] and/or its affiliates. All Rights Reserved. documented in this encounter [facility] 02-09-2023 History of Present illness Narrative CC: Knee pain HPI HISTORY: Addie Jean Baptiste who is a 47 y.o. female that presents for evaluation of a chief complaint: Chief Complaint Patient presents with Right Knee - Pain NEW PATIENT RT KNEE PAIN, fell 01/19/23 went to [facility] No notes on file It is related to the following injury: She has had some falls Problem now for {3 {week(s). The pain is located in or near the posterior leg on the right It is made worse with sitting for long periods of time . The problem is consistent Previous treatment: None Previous imaging studies include: X-rays. Referring physician System, Provider Not In Past Medical History: Diagnosis Date Anxiety Bipolar 1 disorder (HCC) Bipolar disorder (HCC) Chronic back pain Coronary artery disease Depression Diabetes mellitus (HCC) Hypertension MRSA (methicillin resistant Staphylococcus aureus) Pacemaker Seizures (HCC) Stroke (HCC) Past Surgical History: Procedure Laterality Date CHOLECYSTECTOMY FOOT SURGERY HYSTERECTOMY ORTHOPEDIC SURGERY left foot surgery PACEMAKER INSERTION Prior to Admission medications Medication Sig Start Date End Date Taking? Authorizing Provider atorvastatin (LIPITOR) 40 MG tablet Take 1 (one) tablet (40 mg total) by mouth every evening . 03/08/15 Manuel Cardona MD busPIRone (BUSPAR) 15 MG tablet 1 (one) tablet (15 mg total) 2 (two) times a day States takes for 1 more week then goes to higher dose . 05/03/20 Manuel Cardona MD busPIRone (BUSPAR) 30 MG tablet 1 (one) tablet (30 mg total) 2 (two) times a day Starts this when done with 15 mg doses x 1 more week . 05/31/20 Manuel Cardona MD cyclobenzaprine (FLEXERIL) 10 MG tablet Take 1 (one) tablet (10 mg total) by mouth 3 (three) times a day as needed for muscle spasms. 06/26/17 Michi San, diclofenac sodium 3 % Gel Apply 1 application. topically 2 (two) times a day for 5 days . 01/31/23 02/05/23 Neil Murphy MD divalproex (DEPAKOTE) 500 MG delayed release (DR) tablet Take 1 (one) tablet (500 mg total) by mouth 2 (two) times a day . 05/31/20 Manuel Cardona MD Emgality Pen 120 mg/mL Pen every 30 (thirty) days For headaches, had 04/2020; states need to pick it up tomorrow at pharmacy - [facility] in [place] . 06/01/20 Manuel Cardona MD fluticasone-salmeterol (ADVAIR DISKUS) 250-50 mcg/dose diskus inhaler Inhale 1 (one) puff 2 (two) times a day . Manuel Cardona MD HYDROcodone-acetaminophen (NORCO) 5-325 mg per tablet Take 1 (one) tablet by mouth every 6 (six) hours as needed for pain . 01/25/23 Ani Gonzales CNP hydrOXYzine (ATARAX) 25 MG tablet 1 (one) tablet (25 mg total) as needed States forgets how many times per day can use--as needed per patient . 05/31/20 Manuel Cardona MD insulin lispro (HumaLOG) 100 unit/mL injection Inject under the skin See Admin Instructions Inject up to 150 units once daily via pump . Manuel Cardona MD insulin glargine (LANTUS SOLOSTAR/BASAGLAR KWIKPEN) 100 unit/mL (3 mL) InPn Inject 25 (twenty five) Units under the skin nightly . 01/14/23 02/13/23 Rush Hernadez CNP levETIRAcetam (KEPPRA) 1000 MG tablet Take 1 (one) tablet (1,000 mg total) by mouth 2 (two) times a day . 01/13/23 Fab Head MD levothyroxine (SYNTHROID, LEVOTHROID) 75 MCG tablet Take 1 (one) tablet (75 mcg total) by mouth . 07/23/18 Manuel Cardona MD metFORMIN (GLUCOPHAGE) 1000 MG tablet Take 1 (one) tablet (1,000 mg total) by mouth 2 (two) times a day . 03/29/15 Manuel Cardona MD metoprolol succinate (TOPROL-XL) 50 MG 24 hr tablet Take by mouth . Manuel Cardona MD metoprolol tartrate (LOPRESSOR) 25 MG tablet Take 1 (one) tablet (25 mg total) by mouth 2 (two) times a day . Manuel Cardona MD omeprazole (PRILOSEC) 40 MG capsule Take 1 (one) capsule (40 mg total) by mouth 2 (two) times a day . Manuel Cardona MD Omnipod Insulin Refill Crtg 04/16/20 Manuel Cardona MD ondansetron (ZOFRAN-ODT) 4 MG disintegrating tablet Dissolve 1 (one) tablet (4 mg total) on top of tongue every 8 (eight) hours as needed for nausea . 01/25/23 02/01/23 Ani Gonzales CNP pregabalin (LYRICA) 75 MG capsule Take 1 (one) capsule (75 mg total) by mouth 2 (two) times a day . Manuel Cardona MD QUEtiapine (SEROQUEL) 400 MG tablet Take 2 (two) tablets (800 mg total) by mouth nightly . 05/12/20 Manuel Cardona MD tiZANidine (ZANAFLEX) 2 MG tablet 05/09/20 Manuel Cardona MD tiZANidine (ZANAFLEX) 4 MG capsule Take 1 (one) capsule (4 mg total) by mouth 3 (three) times a day as needed for muscle spasms USES FOR BACK PAIN . Manuel Cardona MD tiZANidine (Zanaflex) 6 MG capsule Take 2 (two) capsules (12 mg total) by mouth at bedtime . Manuel Cardona MD traZODone (DESYREL) 50 MG tablet Take 1 (one) tablet (50 mg total) by mouth at bedtime as needed . Manuel Cardona MD Vraylar 6 mg cap Take 1 (one) capsule (6 mg total) by mouth daily . 05/31/20 Provider, MD Manuel Family History Problem Relation Age of Onset Hypertension Father Diabetes type II Father Seizures Mother Iodides, Ketorolac, Tramadol, Codeine, Propoxyphene n-acetaminophen, Adhesive, Ct: iodinated contrast- oral and iv dye, Fentanyl, Ibuprofen, Latex, Linezolid, Lorazepam, Nsaids (non-steroidal anti-inflammatory drug), Vancomycin, and Propoxyphene Review of Systems Constitutional: Positive for activity change. Negative for appetite change, chills, diaphoresis, fatigue, fever and unexpected weight change. HENT: Negative for congestion, dental problem, drooling, ear discharge, ear pain, facial swelling, hearing loss, mouth sores, nosebleeds, postnasal drip, rhinorrhea and sinus pressure. Eyes: Negative. Negative for discharge and itching. Respiratory: Negative. Cardiovascular: Negative. Gastrointestinal: Negative. Endocrine: Negative. Genitourinary: Negative. Musculoskeletal: Positive for arthralgias, gait problem and myalgias. Negative for joint swelling. Skin: Negative. Allergic/Immunologic: Negative for immunocompromised state. Hematological: Negative. Psychiatric/Behavioral: Negative. Ht 5' 2 Wt 113.4 kg (250 lb) BMI 45.73 kg/m CONSTITUTIONAL: Patient is well nourished, well developed, and in no acute distress. NEUROLOGIC: Patient is oriented to person, place, and time. MUSCULOSKELETAL: Gait: Non antalgic reciprocating heel to toe gait. Generalized Laxity: Normal Leg Alignment: Normal Surgical Scars on Knee: None Skin: No abnormalities noted Knee Effusion: None Tender to Palpation: Along the posterior aspect of the thigh-bifemoris muscle and tendon ROM: Affected Knee: 0-125 Active 0-125 Passive Contralateral: 0-125 Active 0-125 Passive Crepitus: negative Ligaments: ACL: Negative atif, negative drawer, and negative pivot shift PCL: Negative drawer MCL: Negative Pain: No LCL: Negative Pain: No Patellar Translation: 1 quadrants medially, 2 quadrants laterally, Tilt: Normal Patellar Ballottement: Normal Patellar Position: Normal Patella J-sign: Negative Hu: Negative Squat Test: Negative Neurovascular Exam of extremity; + EHL/FHL/DF/DF intact and normal SILT Distal pulses palpable and normal Normal muscle tone XRAY INTERPRETATION Studies: Xrays: right knee, 2 views Views: AP, Lat, Merchant Date: 02/09/23 Interpreting physician.: Josué Christianson D.O. Interpretation: Joint spaces: normal Alignment: normal Other FractureNegative BMP Order: [id number] Status: Final result Visible to patient: No (inaccessible in MyChart) 0 Result Notes Component Ref Range & Units 13 d ago (01/27/23) 3 wk ago (01/14/23) 3 wk ago (01/13/23) 4 wk ago (01/12/23) 2 yr ago (06/05/20) 2 yr ago (06/04/20) 2 yr ago (06/03/20) Sodium 135 - 145 mmol/L 142 139 135 134 Low 146 High 144 143 Potassium 3.5 - 5.1 mmol/L 3.6 4.0 4.0 CM 4.2 CM 3.5 3.7 3.9 Comment: Slightly Hemolyzed Chloride 98 - 108 mmol/L 104 111 High 105 101 119 High 115 High 109 High Bicarbonate 21 - 32 mmol/L 26 21 22 24 22 22 27 Anion Gap 10 - 20 mmol/L 16 11 12 13 9 Low 11 11 Glucose 65 - 99 mg/dL 79 309 High 499 Critical High 645 Critical High 70 107 High 288 High BUN 8 - 25 mg/dL 19 20 20 17 8 14 16 Creatinine 0.40 - 1.10 mg/dL 1.30 High 1.19 High 1.32 High 1.62 High 0.72 0.90 1.28 High eGFR >=60 mL/min/1.73 m2 52 Low 58 Low CM 51 Low CM 40 Low CM 103 79 51 Low Comment: Estimated GFR was calculated using the 2020 CKD-EPI creatinine equation. BUN/Creatinine Ratio 10.0 - 20.0 14.6 16.8 15.2 10.5 11.1 15.6 12.5 Calcium 8.4 - 10.2 mg/dL 9.1 8.3 Low 8.4 8.4 7.8 Low 7.8 Low Assessment & Plan: 1. Strain of right hamstring, initial encounter 2. Strain of right knee, initial encounter 3. Other specified diabetes mellitus with other specified complication, unspecified whether retirement insulin use (HCC) We a long discussion with her today about the fact that she is mainly chair bound This is putting constant contracture upon her hamstrings and she is likely getting muscle spasms as a result Recommended good glucose control to help with her neuropathy Also recommend conditioning to help with her leg and muscle function With regards to her knee does not seem to be any pathology with regards to arthritis or internal derangement Follow-up as needed Orders Placed This Encounter lisinopriL (PRINIVIL,ZESTRIL) 40 MG tablet documented in this encounter [facility] 11-13-2022 Note Admission and Discha rge Information Admit Date/Time:10/29/2022 00:01 Admitting Physician - Jacob Damon DO Consulting Physician - Judy Keith, Soto Vasquez DPM Admitting Diagnoses: Discharge Diagnoses 1. Sepsis, 10/28/2022 2. Cellulitis of foot, 10/28/2022 3. UTI (urinary tract infection), 10/30/2022 4. Acute kidney injury superimposed on CKD, 10/30/2022 5. Nausea with vomiting, 10/30/2022 6. Smoker, 10/30/2022 7. Chronic anemia, 10/30/2022 8. Insulin dependent type 2 diabetes mellitus, 10/30/2022 9. Congestive heart failure, 10/30/2022 10. HTN (hypertension), 10/30/2022 11. Hyperlipemia, 10/30/2022 12. Hypothyroid, 10/30/2022 13. SEMAJ (obstructive sleep apnea), 10/30/2022 14. Seizure disorder, 10/30/2022 15. Schizophrenia, 10/30/2022 16. Depression, 10/30/2022 17. RLS (restless legs syndrome), 10/30/2022 18. Chronic GERD, 10/30/2022 19. Morbid obesity, 10/30/2022 20. History of MRSA infection, 10/30/2022 21. On deep vein thrombosis (DVT) prophylaxis, 10/30/2022 Please refer to my progress note for in-depth information regarding each individual diagnosis Procedure History Arthroscopy of ankle (12/02/2018), Fasciotomy (07/23/2017), Right Plantar Fasciotomy (01/24/2016), Ankle, ankle surgery ORIF, Cholecystectomy, Colonoscopy, EGD, Eye, Hysterectomy, insertion of Infusaport, Laparoscopy, LEEP procedure of cervix, pacemaker, Teeth. Hospital Course 47-year-old female with PMH of recent removal of right foot hardware, CKD stage III, current chronic tobacco use, chronic anemia, IDDM, HTN, HLD, hypothyroidism, SEMAJ (noncompliant), seizure disorder, schizophrenia, depression, RLS, chronic GERD, morbid obesity, history of MRSA infection. -Patient presented to the ED for concerns of right foot cellulitis status post recent surgical removal of hardware by Dr. Amaro in [facility] however she was declined transfer to [place] when ED attempted to do so and therefore was admitted to the hospitalist team. -CT of R foot (unable to do MRI 2/2 PPM) -No definite radiographic evidence of osteomyelitis or organized soft tissue fluid collection, nonspecific postoperative changes and soft tissue swelling of the right great toe. -IV clindamycin (given multi atb allergies) - 10/28 - with significant improvement in cellulitis -> transitioned to po for a total of 14 days per ID recs. -Consult Dr. Box - case d/w Dr. Olivia Box via phone unable to see pt. as this is likely a surgical complication done at an outside facility, defer to transferring back to original surgeon or to tertiary facility if warranted. -PT/OT - pt. refused both therapies, states she is allowed to walk on her foot and that she has no intentions to follow any type of restrictions. -Patient states that she will resume her home health care wound care nurse from [facility] as soon as she returns home for care of L foot wounds -Patient was treated for E. coli UTI with IV ceftriaxone with transition to cefdinir -SOLO superimposed on CKD resolved with IVF. -N/V resolved, KUB nonobstructive gas pattern with moderate stool burden, large bowel movement with MiraLAX. Patient was educated on the need to avoid constipation and verbalized understanding of information. -Attempted education on smoking cessation however patient has no intention to stop smoking. She was agreeable to nicotine patch, will provide these at time of discharge -Patient prefers to return to her insulin pump use at time of discharge and states that she has all supples and insulin. We did discuss the importance of the a diet, weight loss and having increased control of her glucose levels as her last A1c was 9.0. -Patient with ongoing low normotensive blood pressures, she will continue on decreased dose of metoprolol 25 mg daily, chlorthalidone, she was instructed to continue to hold lisinopril this may be resumed at a later time with follow-up with her PCP if warranted. -Patient remains noncompliant with CPAP use at home, she has no intentions to use a CPAP machine and therefore declined further education. -Patient states that all admitting symptoms have significantly improved and/or resolved. Patient is eating and drinking without complaints, denies being SOB, chest pain, pressure, palpitations or difficulty with voiding. Patient is eager to be discharged to home. --Other chronic medical conditions as outlined in note. Refer to d/c plan below: -Case reviewed and discussed with Dr. Pizano who is in agreement with current d/c plan. Case will be reviewed and discussed with PCP or diagnostic medical sonographer MD once the hospital rotary operator is able to reach him/her. I spent a lengthy amount of time with the patient and/or family reviewing discharge instructions, medications, medication use. Patient to follow-up with PCP and specialty providers as scheduled on discharge. Patient being discharged in medically/hemodynamically stable cond. with instructions to return to the hospital if sympto (more content not included)... [facility] Comment on above: Result Comment: Elec tronically Signed By: Nory BURGESS\.br\Date and Time Signed: 11/13/22 12:34 EDT\.br\Electronically Co-Signed By: Juliette PIZANO MD\.br\Date and Time Co-Signed: 11/24/22 08:01 EDT 11-05-2022 Note Microbiology PROCEDURE: Blood Culture Charcoal [R1] SOURCE: Blood BODY SITE: Arm L COLLECTED DATE/TIME: 10/28/2022 18:34 EDT RECEIVED DATE/TIME: 10/28/2022 20:38 EDT START DATE/TIME: 10/28/2022 20:38 EDT FREE TEXT SOURCE: Preston Lugo DO, DO, John FINAL REPORTS Final Report [] Verified Date/Time: 11/05/2022 07:00 EDT No growth at 7 days. Performing Locations R1: This test was performed at: [facility], [address] [place] [address], [id number] [place] [address], [facility] Comment on above: Performed By: #### [id number] ####[address] [address] 11-05-2022 Note Microbiology PROCEDURE: Blood Culture Charcoal [R1] SOURCE: Blood BODY SITE: Chest COLLECTED DATE/TIME: 10/28/2022 19:18 EDT RECEIVED DATE/TIME: 10/28/2022 20:37 EDT START DATE/TIME: 10/28/2022 20:37 EDT FREE TEXT SOURCE: Preston Lugo DO, DO, Preston FINAL REPORTS Final Report [] Verified Date/Time: 11/05/2022 07:00 EDT No growth at 7 days. Performing Locations R1: This test was performed at: [facility], [address] [place] [address], [id number] [place] [address], [facility] Comment on above: Performed By: #### [id number] ####[address] [address] 10-31-2022 Note Attempted PT Evaluat ion x 3 days, but pt denies any PT needs and states she has been up walking to the bathroom Independently. No evaluation given Please re-order PT services if any changes to WB status [facility] 10-29-2022 Note Order received and isabell box reviewed. Will Hold PT Evaluation and await Podiatry consult prior to beginning [facility] 10-29-2022 Note Basic Information Admit Date/Time:10/29/2022 00:01 Pt had hardware removed from R foot by Estuardo in [place] on . Surgical site now appears infected and is painful. Pt also has wounds to L foot that are painful. Tramadol at 1430. Chief Complaint pain and swelling of right foot History of Present Illness This is a 47-year-old white female whose past medical history is significant for: 1. 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 Hypertension 3. Hyperlipidemia 4. Hypothyroidism 5. History of congestive heart failure 6. Obstructive sleep apnea with no CPAP 7. COPD history not O2 dependent 8. Status post pacemaker placement 9. Seizure disorder 10. Schizophrenia 11. Restless leg syndrome 12. Obesity 13. Fibromyalgia 14. Depression 15. GERD 16. History of MRSA; sees nitrate operator Dr. Box Patient was hospitalized at [facility] last because her right foot was red and swollen. She was taken to [facility] and she was admitted for cellulitis of her right foot. Orthopedics performed removal of hardware from her right foot that she has had since the late . After few days of IV antibiotics and hospitalization, she was sent home. Yesterday October 28, her home care nurse saw her and noted that her right foot had become more swollen. She said that there was pain with weightbearing and she reports chills but no fevers or sweats. Her home care nurse felt that she needed to be seen in the emergency room. No drainage from the wound. She was brought to the emergency room. She has been taking oral antibiotics since discharge and Augmentin and Bactrim are listed. When she presented to the ER she is hypertensive with a systolic of 116 but her diastolic was 103. She was tachycardic at 114 bpm satting 100% on room air. She is afebrile in the ED. Her white count is 13.5 with a mild neutrophilic shift of 79.8% neutrophils. H&H is 11.6 and 34.7 and her platelets are 458,000. Coagulation studies are unremarkable. Her CMP is remarkable for glucose of 354, BUN 27, creatinine 1.7 (October 06, 2022 her BUN was 20 with a creatinine 1.0) and a chloride is 96. Alkaline phosphatase is elevated 139 the rest of her labs are essentially unremarkable. ER reached out to [facility] to be transferred to where she had her surgery done and be with her orthopedic doctor who performed the procedure. The orthopedic fellow as well as the hospitalist declined the transfer as they did not have infectious disease on-call at their facility. Patient was started on IV clindamycin after 2 blood cultures were sent and she is admitted to our facility for further treatment and evaluation. PAST MEDICAL HISTORY see above PAST SURGICAL HISTORY 1. ORIF right ankle late ; removal of hardware this past 2. Left foot fasciotomy 3. Cholecystectomy 4. Partial hysterectomy 5. Status post pacemaker placement 6. Afcvyq-t-Yeii placed 7. LEEP procedure FAMILY HISTORY Mother is alive with seizures Father is alive with diabetes, hypertension and heart disease 2 brothers alive and well with 1 brother having hereditary spherocytosis 2 children alive and well SOCIAL HISTORY Patient is but she lives with her daughter and her boyfriend She currently vapes and she does do about half a pack of day (at most she was up to 1 pack a day) and she has been smoking since age 18 No alcohol use Occasional marijuana use but no other drug abuse Review of Systems Constitutional: no fever, no chills, no sweats, no weakness Skin: no Jaundice, no rash, no lesions, nopetechiae ENMT: no ear pain, no sore throat, no congestion, no hoarseness Respiratory: no shortness of breath, no cough, no orthopnea, no wheezing Cardiovascular: no chest pain, no palpitations, no edema Gastrointestinal: no nausea, no vomiting, no diarrhea, no GI bleeding Genitourinary: no dysuria, no hematuria, no discharge, no pain Musculoskeletal: no back pain, no trauma Neurologic: no headache, no dizziness, no numbness, no weakness Psychiatric: no sleeping problems, no irritability, no mood swings/depression. Heme/Lymph: no bleeding tendency, no bruising tendency, no petechiae, no swollen nodes Allergy/Immunologic: no seasonal allergies, no food allergies, no recurrent infections, no impaired immunity Additional ROS info: Except as noted in the above Review of Systems and in the History of Present Illness all other systems have been reviewed and are negative or noncontributory. Scoring Fried Fall Risk Score: 50 (10/28/22) Detailed Depression Screen Score: 4 (10/28/22) Total Depression Screen Score: 4 (10/28/22) Physical Exam Vitals & Measurements T: 37.5 ?C(Oral) TMIN: 36.5 ?C(Oral) TMAX: 37.5 ?C(Oral) HR: 109(Monitored) RR: 18 BP: 121/83 SpO2: 91% HT: 157.48 cm WT: 115.2 kg General: Awake alert; oriented x3 with no apparent distress or respiratory distress Skin: warm, dry however her right foot is swollen and erythematous and warm to touch; sutures intact; (more content not included)... [facility] Comment on above: Result Comment: Elec tronically Signed By: Jacob Damon DO.br\Date and Time Signed: 10/29/22 01:49 EDT 10-07-2022 Note EXAMINATION: XA L-SP INE MYELOGRAM LP 10/07/2022 03:42 AM CLINICAL HISTORY: Rad Procedure required: = CT myelo L spine,Cauda equina ASSOCIATED DIAGNOSIS: ORDERING PROVIDER: KEYLA CLAY TECHNOLOGISTS NOTE: INTRA-PROCEDURE MEDS: iohexol (OMNIPAQUE) 300 MG/ML injection 15 mL Route: Intravenous Push SEDATION TIME: Start time: EXAMINATION: XA L-SPINE MYELOGRAM LP 10/07/2022 03:42 AM CLINICAL HISTORY: Rad Procedure required: = CT myelo L spine,Cauda equina ASSOCIATED DIAGNOSIS: cauda equina ORDERING PROVIDER: KEYLA CLAY TECHNKENNETH NOTE: FLUOROSCOPIST: BRIDGER BARNES FLUORO TIME: 2.6 Minutes ATTENDING PHYSICIAN: Bridger Barnes RESIDENT/FELLOW PHYSICIAN: Sonia Beach INTRA-PROCEDURE MEDS: iohexol (OMNIPAQUE) 300 MG/ML injection 15 mL Route: Intravenous Push INFORMED CONSENT: Written informed consent was obtained. The procedure, risks, benefits, and alternatives were discussed. All questions were answered. TIMEOUT: Physician led timeout was conducted documenting correct patient, procedure, site, fire risk, antibiotics and allergies. PROCEDURE/TECHNIQUE: The patient was placed in the prone position on the fluoroscopic table. The L2-3 interspace was localized fluoroscopically. The skin overlying the L2-3 region was prepped in the usual aseptic manner. Generous quantities of one percent lidocaine was used for local anesthesia. The L2-3 space was then accessed with a 20G spinal needle. Injection of 14 cc Omnipaque was made through the lumbar puncture site. Fluoroscopic spot image was made. The needle was removed. The site was dressed with an adhesive bandage. The patient tolerated the procedure well. There was no immediate complication. The patient was positioned in Trendelenburg for 5 minutes, prone for 5 minutes, and supine for 5 minutes. She was then transferred to CT for imaging. FINDINGS: Fluoroscopic spot image demonstrates the needle tip projecting over the lumbar spinal canal. IMPRESSION: Technically successful uncomplicated fluoroscopically-guided myelogram. Dr. Bridger Barnes was present for the critical portions of the procedure. [facility] 10-07-2022 Hospital Discharge instructions Nikko Kendrick DO - 10/07/2022 7:16 AM EDT Tylenol (acetaminophen) Warning: Some medications you have been given today contain Tylenol (acetaminophen). Do not take other medications which contain Tylenol (acetaminophen). Many common over the counter cold and pain medications include Tylenol (acetaminophen) as an ingredient. Please be very careful, and if you are unsure ask your doctor or pharmacist. Do not share your medication with anyone. High Blood Pressure: You were noted to have high blood pressure today. High blood pressure can have serious detrimental effects on your body. It is very important for you to see your Primary Care Physician (or call [phone] if you do not have a PCP) for follow up in the next 5-7 days. TRANSPORTATION TO [facility] FOR AN APPOINTMENT: PLEASE CALL [phone]. Extremity Injury Instructions: Return to the ED if you develop increased pain in your injured limb, loss of sensation, or change in color of the limb. Back Injury Instructions: Return to the ED if you have weakness or numbness in your arms or legs, you are unable to control your bowels or bladder, or you are unable to walk or if you have worsening pain in your back. Procedures done during this visit: CT Myelogram The following attachments cannot be sent through Care Everywhere.Urinary Incontinence Discharge Instructions (Japanese)Diabetic Neuropathy (Japanese)documented in this encounter [facility] 10-07-2022 Note POST-PROCEDURE NOTE Procedure: Myelogram Pre-operative Diagnosis: concern for cauda equina Post-operative Diagnosis: same Attending: Bridger Barnes MD A TIME OUT was performed prior to the procedure using active communication to verify correct patient, procedure, and site: Yes Intraoperative Medications: Medications Medication Event Details Admin User Admin Time Complications: None Specimens: N/A Estimated Blood Loss: None Post Procedure Pain Ratin/10 Findings: LP at L2-3 with infusion of 14 cc omnipaque for myelography Plan: CT myelogram Please see procedure dictation in EPIC/PACS for full procedural details. Dr. Barnes was present for the critical portion of the procedure. Sonia Beach MD Radiology [facility] 10-07-2022 Note Pre-Procedure Note HISTORY: Procedure: Myelogram Indication: cauda equina syndrome No past medical history on file. Diabetes: yes Sleep Apnea: yes Excessive Obesity: yes Hepatic Disease: no Renal Disease: no Substance Abuse History: History Drug Use Not on file No current facility-administered medications for this encounter. No current outpatient medications on file. Allergies: Patient has no allergy information on record. PHYSICAL EXAM: Blood pressure 139/65, pulse (!) 102, temperature 97.6 ???F (36.4 ???C), temperature source Oral, resp. rate 17, SpO2 99 %. Labs Reviewed? Yes Recent Labs: Result for specified components in the past 45 days Component Date/Time Result Units Hemoglobin 10/07/2022 2:10 AM 12.6 g/dL Hematocrit 10/07/2022 2:10 AM 37.9 % Platelet 10/07/2022 2:10 AM 380 K/uL PTT --- not found Protime 10/07/2022 3:38 AM 12.6 sec INR 10/07/2022 3:38 AM 1.12 FXAUN --- not found ANTIFXALMWHE --- not found Creatinine 10/07/2022 2:10 AM 0.90 mg/dL Planned Sedation: Local anesthesia PRE-PROCEDURE VERIFICATION: Site of Procedure: not applicable Site Marked pre-procedure: N/A Pre-Procedure Pain Ratin/10 Advanced Directives (Living will, health care power of workers compensation defense attorney): none Patient Recent Code Status: No Order Code Status For This Procedure: Full Code Sonia Beach MD Radiology [facility] 10-06-2022 Evaluation + Plan note Extrac shantel from: Title:ED Note Author:Preston Lugo DO Date:09/22 10/14 Lower extremity weakness (R2 9.898: Other symptoms and signs involving the musculoskeletal system) Urinary incontinence (R32: Unspecified urinary incontinence) Orders: acetaminophen-oxycodone, 1 tab(s), Tab, Oral, Once, Stop date 10/06/22 14:33:00 EDT, STAT, Start date 10/06/22 14:33:00 EDT CBC w/ Auto Diff Comprehensive Metabolic Panel UA With Cult Reflex Future Scheduled Tests Laboratory* Fecal WBC Lactoferrin 10/30/21 * Enteric Panel by PCR 10/30/21 Radiology* NM Myocardial Spect Rest/Stress 1 Day 12/16/21 [facility]04-24-2023 Hospital Discharge instructions Patient Education 09/15/2022 12:14:10 MRSA Infection, Diagnosis, Adult MRSA Infection, Diagnosis, Adult Methicillin-resistant Staphylococcus aureus (MRSA) infection is caused by bacteria called Staphylococcus aureus, or staph, that no longer respond to common antibiotic medicines (drug-resistant bacteria). MRSA infection can be hard to treat. Most of the time, MRSA can be on the skin or in the nose without causing problems (colonized). However, if MRSA enters the body through a cut, a sore, or an invasive medical doctor md/medical director, it can cause a serious infection. What are the causes? This condition is caused by staph bacteria. Illness may develop after exposure to the bacteria through: Kjga-et-voes contact with someone who is infected with MRSA. Touching surfaces that have the bacteria on them. Having a procedure or using equipment that allows MRSA to enter the body. Having MRSA that lives on your skin and then enters your body through: ?A cut or scratch. ?A surgery or procedure. ?The use of a medical doctor md/medical director. Contact with the bacteria may occur: During a stay in a hospital, rehabilitation facility, retirement, or other health care facility (health care associated MRSA). In daily activities where there is close contact with others, such as sports, child support officer centers, or at home (community-associated MRSA). What increases the risk? You are more likely to develop this condition if you: Have a surgery or procedure. Have an IV or a thin tube (catheter) placed in your body. Are elderly. Are on kidney dialysis. Have recently taken an antibiotic medicine. Live in a long-term care facility. Have a chronic wound or skin ulcer. Have a weak body defense system (immune system). Play sports that involve uoyh-lq-wxtc contact. Live in a crowded place, like a dormitory or barracks. Share towels, razors, or sports equipment with other people. Have a history of MRSA infection or colonization. What are the signs or symptoms? Symptoms of this condition depend on the area that is affected. Symptoms may include: A pus-filled pimple or boil. Pus that drains from your skin. A sore (abscess) under your skin or somewhere in your body. Fever with or without chills. Difficulty breathing. Coughing up blood. Redness, warmth, swelling, or pain in the affected area. How is this diagnosed? This condition may be diagnosed based on: A physical exam. Your medical history. Taking a sample from the infected area and growing it in a lab (culture). You may also have other tests, including: Imaging tests, such as X-rays, a CT scan, or an MRI. Lab tests, such as blood, urine, or phlegm (sputum) tests. You skin or nose may be swabbed when you are admitted to a health care facility for a procedure. This is to screen for MRSA. How is this treated? Treatment depends on the type of MRSA infection you have and how severe, deep, or extensive it is. Treatment may include: Antibiotic medicines. Surgery to drain pus from the infected area. Severe infections may require a hospital stay. Follow these instructions at home: Medicines Take ztpd-gjx-whbkiww and prescription medicines only as told by your health care provider. If you were prescribed an antibiotic medicine, use it as told by your health care provider. Do not stop using the antibiotic even if you start to feel better. Prevention Follow these instructions to avoid spreading the infection to others: Wash your hands frequently with soap and water. If soap and water are not available, use an alcohol-based hand agile project manager. Avoid close contact with those around you as much as possible. Do not use towels, razors, toothbrushes, bedding, or other items that will be used by others. Wash towels, bedding, and clothes in the washing machine with detergent and hot water. Dry them in a hot dryer. Clean surfaces regularly to remove germs (disinfection). Use products or solutions that contain bleach. Make sure you disinfect bathroom surfaces, food preparation areas, exercise equipment, and doorknobs. General instructions If you have a wound, follow instructions from your health care provider about how to take care of your wound. ?Do not pick at scabs. ?Do not try to drain any infection sites or pimples. Tell all your health care providers that you have MRSA, or if you have ever had a MRSA infection. Keep all follow-up visits as told by your health care provider. This is important. Contact a health care provider if you: Do not get better. Have symptoms that get worse. Have new symptoms. Get help right away if you have: Nausea or vomiting, or if you cannot take medicine without vomiting. Trouble breathing. Chest pain. These symptoms may represent a serious problem that is an emergency. Do not wait to see if the symptoms will go away. Get medical help right away. Call your local emergency services (911 in the [place] Do not drive yourself to the hospital. Summary MRSA infection is caused by bacteria called Staphylococcus aureus, or staph, that no longer respondto common antibiotic medicines. Treatment for this condition depends on the type of MRSA infection you have and how severe, deep, and extensive it is. If you were prescribed an antibiotic medicine, use it as told by your health care provider. Do not stop using the antibiotic even if you start to feel better. Follow instructions from your health care provider to avoid spreading the infection to others. This information is not intended to replace advice given to you by your health care provider. Make sure you discuss any questions you have with your health care provider. Document Revised: 07/28/2019 Document Reviewed: 07/29/2019 [employer] Patient Education 2022 [employer]. 09/15/2022 12:14:10 Cellulitis, Adult Cellulitis, Adult Cellulitis is a skin infection. The infected area is usually warm, red, swollen, and tender. This condition occurs most often in the arms and lower legs. The infection can travel to the muscles, blood, and underlying tissue and become serious. It is very important to get treated for this condition. What are the causes? Cellulitis is caused by bacteria. The bacteria enter through a break in the skin, such as a cut, burn, insect bite, open sore, or crack. What increases the risk? This condition is more likely to occur in people who: Have a weak body defense system (immune system). Have open wounds on the skin, such as cuts, cali, bites, and scrapes. Bacteria can enter the body through these open wounds. Are older than 60 years of age. Have diabetes. Have a type of long-lasting (chronic) liver disease (cirrhosis) or kidney disease. Are obese. Have a skin condition such as: ?Itchy rash (eczema). ?Slow movement of blood in the veins (venous stasis). ?Fluid buildup below the skin (edema). Have had radiation therapy. Use IV drugs. What are the signs or symptoms? Symptoms of this condition include: Redness, streaking, or spotting on the skin. Swollen area of the skin. Tenderness or pain when an area of the skin is touched. Warm skin. A fever. Chills. Blisters. How is this diagnosed? This condition is diagnosed based on a medical history and physical exam. You may also have tests, including: Blood tests. Imaging tests. How is this treated? Treatment for this condition may include: Medicines, such as antibiotic medicines or medicines to treat allergies (antihistamines). Supportive care, such as rest and application of cold or warm cloths (compresses) to the skin. Hospital care, if the condition is severe. The infection usually starts to get better within 1 2 days of treatment. Follow these instructions at home: Medicines Take ivkk-adp-ydwswho and prescription medicines only as told by your health care provider. If you were prescribed an antibiotic medicine, take it as told by your health care provider. Do notstop taking the antibiotic even if you start to feel better. General instructions Drink enough fluid to keep your urine pale yellow. Do not touch or rub the infected area. Raise (elevate) the infected area above the level of your heart while you are sitting or lying down. Apply warm or cold compresses to the affected area as told by your health care provider. Keep all follow-up visits as told by your health care provider. This is important. These visits letyour health care provider make sure a more serious infection is not developing. Contact a health care provider if: You have a fever. Your symptoms do not begin to improve within 1 2 days of starting treatment. Your bone or joint underneath the infected area becomes painful after the skin has healed. Your infection returns in the same area or another area. You notice a swollen bump in the infected area. You develop new symptoms. You have a general ill feeling (malaise) with muscle aches and pains. Get help right away if: Your symptoms get worse. You feel very sleepy. You develop vomiting or diarrhea that persists. You notice red streaks coming from the infected area. Your red area gets larger or turns dark in color. These symptoms may represent a serious problem that is an emergency. Do not wait to see if the symptoms will go away. Get medical help right away. Call your local emergency services (911 in the [place] Do not drive yourself to the hospital. Summary Cellulitis is a skin infection. This condition occurs most often in the arms and lower legs. Treatment for this condition may include medicines, such as antibiotic medicines or antihistamines. Take iuqi-cxd-nxowibi and prescription medicines only as told by your health care provider. If you were prescribed an antibiotic medicine, do not stop taking the antibiotic even if you start to feel better. Contact a health care provider if your symptoms do not begin to improve within 1 2 days of startingtreatment or your symptoms get worse. Keep all follow-up visits as told by your health care provider. This is important. These visits letyour health care provider make sure that a more serious infection is not developing. This information is not intended to replace advice given to you by your health care provider. Make sure you discuss any questions you have with your health care provider. Document Revised: 02/20/2022 Document Reviewed: 02/20/2022 [employer] Patient Education 2022 [employer]. Follow Up Care 09/12/2022 13:40:51 With:LAURENT FRANCO Address: [address] [place] [address]- Business (1) When: Unknown Comments:Appointment line is out of service. Please contact your PCP for an appointment. Thank you! With:Soto Box Address: [facility] [address] [facility] [place] [address]- 0 Business (1) When:3 to 5 days Comments:Call for followup appointment [facility]04-24-2023 Evaluation + Plan noteExtracted from: Title:Discharge Note Author:Noelle HICKEY Date:09/15/22 Discharge To, Anticipated II - Home with home health Transported by, Anticipated - Family Discharge Diet(s): Calorie Controlled- 1800 Calorie Diet (09/15/22 12:13:00) Prescriptions Albuterol (Eqv-ProAir HFA) 90 mcg/inh inhalation aerosol, 2 puff(s), Inhalation, q4hr, PRN, 1 refills aspirin 81 mg Chew Tab, 81 mg= 1 tab(s), Chewed, Daily, 3 refills Bactrim D.S. 800 mg-160 mg Tab, 1 tab(s), Oral, q12hr cholecalciferol 1000 intl units (25 mcg) oral tablet, 25 mcg= 1 tab(s), Oral, Daily DuoNeb 2.5 mg-0.5 mg/3 mL Soln-Inh, 3 mL, Inhalation, QID, PRN Lyrica 75 mg Cap, 75 mg= 1 cap(s), Oral, BID quetiapine 400 mg oral tablet, 800 mg= 2 tab(s), Oral, Bedtime Zofran 4 mg Tab, 4 mg= 1 tab(s), Oral, q8hr, PRN Home atorvastatin 40 mg Tab, 40 mg= 1 tab(s), Oral, Bedtime busPIRone 30 mg oral tablet, 30 mg= 1 tab(s), Oral, BID chlorthalidone 25 mg Tab, 25 mg= 1 tab(s), Oral, Daily ergocalciferol 50,000 intl units Cap, 98653 International_Unit= 1 cap(s), Oral, Thursday hydrOXYzine pamoate 25 mg Cap, 25 mg= 1 cap(s), Oral, Bedtime, PRN insulin lispro 100 units/mL injectable solution, SubCutaneous levETIRAcetam 750 mg oral tablet, dispersible, 750 mg= 1 tab(s), Oral, BID lisinopril 40 mg Tab, 40 mg= 1 tab(s), Oral, Daily metformin 1000 mg Tab, 1000 mg= 1 tab(s), Oral, BID Metoprolol tartrate 25 mg Tab, 25 mg= 1 tab(s), Oral, BID pantoprazole 40 mg Oral EC Tab, 40 mg= 1 tab(s), Oral, Daily Synthroid 75 mcg (0.075 mg) Tab, 75 mcg= 1 tab(s), Oral, Daily tiZANidine 6 mg Cap, 12 mg= 2 cap(s), Oral, Bedtime traMADOL 50 mg Tab, 50 mg= 1 tab(s), Oral, Daily, PRN venlafaxine 150 mg Cap-ER, 150 mg= 1 cap(s), Oral, Daily With When Contact Information Soto Box Within 3 to 5 days [facility] [address] [place] [address]- 0 Business (1) Additional Instructions: KIIsmael FRANCO In 0 days [address] [place] [address]- Business (1) Additional Instructions: MRSA Infection, Diagnosis, Adult Cellulitis, Adult Extracted from: Title:APSO Note Author:AMELIE MCKAYKRYSTLEStone Date:09/14/22 PLAN 1. Cellulitis (L03.90: Cellulitis, unspecified) Patiently recently admitted to [facility] and underwent an incision and drainage of a nail performed by Dr. Swapnil Castillo however the nail continues to drain had abscess at the base of the digit --assess for ? osteomyelitis Unable to undergo MRI due to pacemaker. Cannot do bone scan on weekend CT left lower extremity w/o contrast shows no osseous changes. Continue Cubicin IV Consult ID appreciated--no need for surgical intervention at this time. dry sterile dressing with Xeroform to the ulceration site recommended dispensing of surgical shoe follow-up next week Her cultures at [facility] was positive for MRSA Blood culture negative Wound culture positive for staph coag positive prelim Pain control when patient's blood pressure stable/normotensive. 2. Hypertensive heart failure (I11.0: Hypertensive heart disease with heart failure) Is received 2 L of IV fluid since admission we will give 1 more today as patient is still hypotensive 3. CAD (coronary artery disease) (I25.10: Atherosclerotic heart disease of lime coronary artery without angina pectoris) history of VT with AICD placed per Dr Noble in [place]. Statin, aspirin, BB 4. HTN (hypertension) (I10: Essential (primary) hypertension) Lisinopril, Chlorthalidone hold today due to hypotension 5. Diabetes (E11.9: Type 2 diabetes mellitus without complications) AccuChecks AC/HS with ss insulin Hold metformin 6. Diabetic neuropathy (E11.40: Type 2 diabetes mellitus with diabetic neuropathy, unspecified) Tramadol, tizanidine 7. Bipolar disorder (F31.9: Bipolar disorder, unspecified) Buspirone, Effexor, Seroquel, hydroxyzine 8. Chronic GERD (K21.9: Gastro-esophageal reflux disease without esophagitis) PPI 9. Fibromyalgia (M79.7: Fibromyalgia) Lyrica 10. SEMAJ (obstructive sleep apnea) (G47.33: Obstructive sleep apnea (adult) (pediatric)) Bipap/Cpap as at home. 11. Morbid obesity (E66.01: Morbid (severe) obesity due to excess calories) BMI 46.01 Counseled on diet, exercise, weight loss and lifestyle modifications. Extracted from: Title:SOAP Note: Simple * Author:Soto Box DPM Date:09/14/22 Impression and Plan Based on the CT scan findings and improvement clinically patient does not require surgical intervention at this time. Recommended continual IV antibiotics until discharge. She will follow-up with me as an outpatient once discharged. Today I applied a dry sterile dressing with Xeroform to the ulceration site recommended dispensing of surgical shoe follow-up next week. Extracted from: Title:APSO Note Author:Stone HICKEY Date:09/13/22 PLAN 1. Cellulitis (L03.90: Cellulitis, unspecified) Patiently recently admitted to [facility] and underwent an incision and drainage of a nail performed by Dr. Swapnil Castillo however the nail continues to drain had abscess at the base of the digit --assess for ? osteomyelitis Unable to undergo MRI due to pacemaker. Cannot do bone scan on weekend CT left lower extremity w/o contrast pending. Continue Cubicin IV Consult ID pending. Consult podiatry pending Her cultures at [facility] was positive for MRSA Blood culture pending Wound culture positive for staph coag positive prelim Pain control when patient's blood pressure stable/normotensive. 2. Hypertensive heart failure (I11.0: Hypertensive heart disease with heart failure) Is received 2 L of IV fluid since admission we will give 1 more today as patient is still hypotensive 3. CAD (coronary artery disease) (I25.10: Atherosclerotic heart disease of lime coronary artery without angina pectoris) history of VT with AICD placed per Dr Noble in [place]. Statin, aspirin, BB 4. HTN (hypertension) (I10: Essential (primary) hypertension) Lisinopril, Chlorthalidone hold today due to hypotension 5. Diabetes (E11.9: Type 2 diabetes mellitus without complications) AccuChecks AC/HS with ss insulin Hold metformin 6. Diabetic neuropathy (E11.40: Type 2 diabetes mellitus with diabetic neuropathy, unspecified) Tramadol, tizanidine 7. Bipolar disorder (F31.9: Bipolar disorder, unspecified) Buspirone, Effexor, Seroquel, hydroxyzine 8. Chronic GERD (K21.9: Gastro-esophageal reflux disease without esophagitis) PPI 9. Fibromyalgia (M79.7: Fibromyalgia) Lyrica 10. SEMAJ (obstructive sleep apnea) (G47.33: Obstructive sleep apnea (adult) (pediatric)) Bipap/Cpap as at home. 11. Morbid obesity (E66.01: Morbid (severe) obesity due to excess calories) BMI 46.01 Counseled on diet, exercise, weight loss and lifestyle modifications. Will convert to inpatient status as she will require greater than 2 midnight stays that she is pending surgery in the a.m. for possible osteomyelitis with possible amputation. Orders: daptomycin + Sodium Chloride 0.9% intravenous solution 50 mL, 460 mg = 0.92 EA, Powder-Inj, IV Piggyback, Daily, NOW, Start date 09/13/22 9:49:00 EDT, 118.4 mL/hr, Infuse over 30 minute(s) Sodium Chloride 0.9% intravenous solution, 1,000 mL, Soln-IV, IV, Once, Stop date 09/13/22 10:00:00 EDT, Routine, Start date 09/13/22 10:00:00 EDT, mL/hr, Infuse over 61, minute(s) Sodium Chloride 0.9% intravenous solution 1,000 mL, 1,000 mL, IV, 75 mL/hr, for 1 dose(s), Stop date 09/14/22 4:14:00 EDT, Routine, Start date 09/13/22 14:57:00 EDT, 13.3 hour(s), Total volume (mL): 1,000, 113 kg, 2.22, m2 Sodium Chloride 0.9% intravenous solution 500 mL, 500 mL, IV, 20 mL/hr, Other (see comment), Routine, Start date 09/13/22 9:14:00 EDT, 25 hour(s), Total volume (mL): 500, 113 kg, 2.22, m2 Automated Diff Basic Metabolic Panel CBC w/ Auto Diff Communication Order Communication Order Communication Order Communication Order Communication Order Physician to Nursing Communication Order Physician to Pharmacy [F] Creatine Kinase CT Lower Extremity w/o Contrast Left eGFR NPO Diet Extracted from: Title:Podiatric surgery Author:Soto Box DPM Date:09/13/22 Impression and Plan Antibiotics are being managed by the hospitalist MRI is pending patient may necessitate first ray amputation tomorrow pending results of the MRI possible incision and drainage of an abscess as well. Recommended local wound care at this point continue IV antibiotics be contacted by the hospitalist once the MRI has been resulted I discussed with the patient possible amputation of the left great toe she understood all possible risk and complications including pain swelling numbness to infection need for additional surgery loss of limb nonhealing wound patient fully understood the possible risk and complications and is consented for the above- stated procedure. Extracted from: Title:Admission H & P Author:Evelyn STEVENS, Sergio Date:09/12/22 Cellulitis -Will r/o osteo w/MRI -Antibiotics -ID & Podiatry Diabetes -DM diet now, NPO at midnight -Sliding scale w/finger sticks COPD -No s/s of exacerbation no wheezing no supplemental oxygen use -Duo neb -I/S -Monitor Chronic Medical Conditions History of seizures: no s/s of seizure activity, resume home medications Bipolar: Denies any Si/Hi, resume home medications SEMAJ: CPAP qhS and PRN Hypertension: No chest pain, tele and resume home medications GERD: Famotidine Morbid obesity: Patient's BMI >30. Lifestyle modifications encouraged. Obesity is a pro-inflammatory state likely affecting above medical processes. Outpatient follow up. Code: Full Diet: DM diet DVT prophylaxis: Heparin BID Family: Bedside and updated Admit: Observation, likely <2 midnight stay Time: 55 minutes Plan: Plan was discussed with patient and family (if applicable) at bedside Orders: acetaminophen, 325 mg = 1 tab(s), Tab, Oral, q4hr PRN Pain, Routine, Start date 09/12/22 14:52:00 EDT, 09/12/22 14:52:00 EDT albuterol-ipratropium, 3 mL, Soln-Inh, Inhalation, QID PRN Shortness of breath or wheezing, STAT, Start date 09/12/22 14:54:00 EDT glucose, 50 mL, Soln-IV, IV Push, Once PRN Blood glucose, STAT, Start date 09/12/22 14:51:00 EDT insulin lispro, 0-10 Units, Injection-Insulin, SubCutaneous, QIDACHS, Routine, Start date 09/12/22 16:30:00 EDT ondansetron, 4 mg = 2 mL, Injection, IV Push, TID PRN Nausea/Vomiting, Routine, Start date 09/12/22 14:52:00 EDT, 09/12/22 14:52:00 EDT Cardiac Monitoring Communication Order Physician to Nursing Communication Order Physician to Nursing Communication Order Physician to Nursing Consult to Infectious Disease Physician Consult to Interactive Art Director Continuous Pulse Oximetry Diabetic/Calorie Control Diet Elevate Head of Bed Elevate Head of Bed Flutter Valve Hypoglycemia Protocol Responsive Patient Hypoglycemia Protocol Unresponsive Patient Incentive Spirometry MRI Foot w/o Contrast Left NPO Diet Place in Status Resuscitation Status - Full Routine Capillary Glucose POC Vital Signs Weight Extracted from: Title:ED Note Author:Preston Lugo DO Date:08/24 06/16 Osteomyelitis (M86.9: Osteom yelitis, unspecified) Orders: daptomycin + Sodium Chloride 0.9% intravenous solution 50 mL, 450 mg = 0.9 EA, Powder-Inj, IV Piggyback, Once, Stop date 09/12/22 15:00:00 EDT, Start date 09/12/22 15:00:00 EDT, 118 mL/hr, Infuse over 30 minute(s) morphine, 4 mg = 2 mL, Injection, IV Push, Once, Stop date 09/12/22 14:28:00 EDT, STAT, Start date 09/12/22 14:28:00 EDT, 09/12/22 14:28:00 EDT ondansetron, 4 mg = 2 mL, Injection, IV Push, Once, Stop date 09/12/22 14:28:00 EDT, STAT, Start date 09/12/22 14:28:00 EDT, 09/12/22 14:28:00 EDT piperacillin-tazobactam + Sodium Chloride 0.9% intravenous solution 50 mL, 3.375 gm, 1 EA, Injection, IV Piggyback, Once, Stop date 09/12/22 14:40:00 EDT, STAT, Start date 09/12/22 14:40:00 EDT, 100 mL/hr, Infuse over 30, minute(s), Total Vol (mL): 50 Blood Culture Charcoal Blood Culture Charcoal CBC w/ Auto Diff Comprehensive Metabolic Panel Continuous Pulse Oximetry ECG 12 Lead Adult ED Cardiac Monitoring Lactic Acid Lactic Acid PT & PTT Troponin Future Scheduled Tests Laboratory* Fecal WBC Lactoferrin 10/30/21 * Enteric Panel by PCR 10/30/21 Radiology* NM Myocardial Spect Rest/Stress 1 Day 12/16/21 [facility]03-31-2023 Discharge summary Author Jeana Martini [facility] August 22, 2022 1:35pm Note Date/Time August 22, 2022 1:3 0pm [facility] [address] [place] [address] Discharge Summary Signed Patient: Addie Jean Baptiste MR#: [id number] : 1975 Acct:[id number] Age/Sex: 47 / F Adm Date: 3 Loc: Room: [address] [place] [address]: Jeana Martini MD Copies to: Laurent Franco INFORMATION ASSURANCE ANALYST-Isabell Martini MD~ Providers Date of Discharge: 08/22/22 Discharging Provider: Jeana Martini Primary Care Provider: Laurent Franco Consults: 08/20/22 03:41 Consult to Podiatry Routine 08/20/22 09:42 Consult to Infectious Diseases Routine 08/21/22 10:07 Consult to Vascular Surgery Routine Discharge Diagnosis (1) Peripheral vascular disease: (2) Abscess of toenail on left foot: (3) Diabetes: (4) Nicotine dependence: (5) Diabetic foot infection: (6) Hypertension: (7) Hypomagnesemia: (8) Hypophosphatemia: Final Diagnosis Final Discharge Diagnosis: As listed above and others that are not listed Summary Hospital Course Hospital course: Patient came in with persistent pain and swelling involving the left great toe. Patient was admitted and started on intravenous antibiotic Patient was seen by nitrate operator who recommended and performed bedside incision and drainage to abscess. Patient is cleared by podiatry and infectious disease to be discharged home on oral Augmentin after receiving few days of intravenous Unasyn. I ordered arterial Doppler which came back positive for peripheral vascular disease. Patient was seen by vascular surgeon who recommended angiogram. Patient was taken to the angiogram suite however this could not be completed dueto patient anxiety and claustrophobia. No clinical evidence of acute vascular compromise. Vascular surgeon Dr. Romero recommended elective angiogram within the next week or 2. Patient will be arranged to follow-up with him. Diabetes, uncontrollable. Patient has insulin pump with a baseline rate infusion as well as as needed insulin coverage. Patient would not allow nursingstaff to inject her with insulin or manage her diabetes. Patient will be recommended to start taking aspirin and statin given her diabetes, hypertension and PVD. Patient was found to have vitamin D deficiency for which she will be started on vitamin D 50,000 units weekly for 4 weeks Hypertension. Patient went came in her blood pressure was elevated. She was started on amlodipine. Subsequently her blood pressure dropped down which had led to the development of a transient SOLO. Blood pressure was placed on hold. Patient was given IV fluid infusion. Her SOLO had improved so is her blood pressure Patient will be discharged same home preadmission BP meds however these will need to be titrated up and down in the outpatient setting to achieve optimal control over extended period of time. Patient has multiple complex medical issues. All appear to be stable. I do nothave any clear or strong clinical justification to extend inpatient hospitalization. Patient however will require close and the frequent monitoringas well as additional work-up, investigation and therapeutic intervention that could take place from this point on post discharge. That is to prevent relapse,decompensation, rehospitalization and other medical implications. Time Spent with Patient Time spent providing/coordinating discharge services (# min): 45 Surgeries and Procedures Operation Date: 08/22/22 09:05 <No data on this case meets the specified criteria> Diagnostic Studies Completed and Pending Studies Pending studies at discharge: 08/20/22 09:30 Urine Culture Routine 08/20/22 15:49 Blood Culture Routine 08/23/22 05:00 Basic Metabolic Panel [CHEM] IN AM Magnesium [CHEM] IN AM Preliminary micro results at discharge 08/20/22 10:13 Blood Culture - Preliminary Blood - Right Antecubital No Growth 2 Days 08/20/22 15:49 Blood Culture - Preliminary Blood - Port No Growth 1 Day Labs on day of discharge: 08/22/22 11:23: POC Glucose 207 08/22/22 06:43: POC Glucose 140, POC Glucose Comment Glu2: cleaned meter 08/22/22 05:50: PHA Creatinine Clear 70.62, Sodium 143, Potassium 4.0, Chloride 111 H, Carbon Dioxide 25.9, Anion Gap 10.1, BUN 20, Creatinine 1.22 H, Est GFR (CKD- EPI) 55.771, Glucose 141 H, Calcium 8.1 L, Phosphorus 3.8, Magnesium 1.6 L 08/21/22 21:19: POC Glucose 339, POC Glucose Comment Glu2: cleaned meter 08/21/22 16:25: POC Glucose 206, POC Glucose Comment Glu2: cleaned meter Exam Physical Exam Vital Signs: Temp Pulse Resp BP Pulse Ox O2 Del Method 98 F 76 18 139/99 99 Room Air 08/22/22 08:00 08/22/22 08:00 08/22/22 08:00 08/22/22 08:00 08/22/22 08:00 08/22/22 08:00 Narrative: [pt is awake and alert. oriented to place, time and person, morbidly obese HEENT: [place] conjunctiva and NL buccal mucosa Neck: Supple, no tenderness Endocrine: No Thyromegaly. Vascular: No JVD or carotid bruit. Lymphatic: No cervical lymphadenopathy. Chest: CTA no DTP. Heart RRR, no extra sound or murmur. Abd: Soft, no tenderness, no rebound and no rigidity. Increase abd girth therefore clinically I could not exclude the possibility of intra abd mass or organomegaly. LE: No cyanosis or clubbing, no varices or edema. Toe and foot are wrapped after incision and drainage was completed by podiatry on 08/20. To be inspected by podiatry and infectious disease. Neuro: A A O. Nl speech, comprehension and attention. Nl and symetrical motor and tone examination through out. []] Discharge Plan Discharge Plan Additional Instructions: I may not have addressed or treated all of your medical illnesses or the abnormal blood work or imaging studies during this hospitalization. Please ask your primary care provider to obtain [facility] records entirely to follow up on all of the abnormal physical, laboratory, and imaging findings that I have not addressed. Please follow-up with Dr. Romero to evaluate your circulation Please return back to the emergency room or seek medical attention if your symptoms worsen or return. Discharging you from [facility] does not mean that your medical care ends here and now. You may still need additional monitoring, work up, investigation, and treatment plan to be handled from this point on by out patient providers including your primary care provider and specialists. For any medication question, please contact your retail pharmacist or your primary care provider. Thank you. Instructions: Peripheral Vascular (Arterial) Disease (DC) Prescriptions: New amoxicillin-pot clavulanate 500-125 mg tablet 1 tab PO Q8H 10 Days Qty: 30 0RF atorvastatin 40 mg Tablet 40 mg PO QPM Qty: 30 1RF aspirin 81 mg Tablet,Delayed Release (Dr/Ec) 81 mg PO DAILY Qty: 30 1RF ergocalciferol (vitamin D2) 1,250 mcg (50,000 unit) Capsule 1,250 mcg PO Q7D Qty: 4 0RF Saccharomyces boulardii 250 mg Capsule 250 mg PO BID.WITH.MEALS Qty: 60 0RF Continued levothyroxine 75 mcg tablet 75 mcg PO DAILY Patient Comments: metformin 1,000 mg tablet 1,000 mg PO BID Patient Comments: Prilosec 10 mg Susp,Delayed Release For Recon 40 mg PO DAILY insulin lispro [Admelog U-100 Insulin lispro] 100 unit/mL Solution See Rx Instructions .ROUTE .COMPLEX Protocol: Custom Scale - Custom (Blank) Condition: Dose/Route: Instruction: Condition: Fingerstick Blood Glucose Dose/Route: Insulin Units Condition: mg/dl Condition: mg/dl Condition: mg/dl Condition: mg/dl Condition: mg/dl Condition: mg/dl Condition: mg/dl Condition: mg/dl Condition: mg/dl Condition: mg/dl Condition: Greater than or = 400 mg/dl Instruction: Call Provider Condition: Custom Scale 1:___ Instruction: GIVE 1 UNIT OF ASPART FOR EVERY ___MG GLUCOSE Instruction: STARTING AT 150MG AT BG CHECKS Protocol Text: *If the corrective scale dose has been administered within the past 4 hours, do not use corrective scale again unless approved by prescriber* Patient Comments: patient unaware of scal Rx Instructions: Patient uses up to 200 Units of Insulin delivered via Omnipod. levetiracetam 500 mg tablet 750 mg PO BID pregabalin 150 mg capsule 150 mg PO HS quetiapine 400 mg tablet 800 mg PO HS tizanidine 4 mg tablet 4 mg PO TID PRN (Reason: Muscle Spasm) Patient Comments: TAKE ONE TABLET BY MOUTH THREE TIMES A DAY NEEDED FOR MUSCLE SPASTICITY promethazine 25 mg tablet Changed lisinopril 40 mg tablet 40 mg PO DIRECTED Qty: 60 0RF Rx Instructions: Take half a tablet daily for 2 days then 1 tablet daily Discontinued doxycycline hyclate 100 mg tablet 100 mg PO BID Other Ambulatory Orders: DME Home Medical Equipment (Routine) Timeframe: [id number] Location: Determined by Patient Ordered By: Jeana Martini Follow Up: Swapnil Castillo DPM [Active Staff] - Shameka Romero MD [Active Staff] - (Please follow-up in the office in 1 to 2 weeks. Please call for appointment.) [facility]/25/[facility] 10:15 am (Follow-up with your Primary Care Provider, call office to reschedule if needed. ) Documented By: Jeana Martini MD 08/22/22 1325 Signed By: <Electronically signed by Jeana Martini MD> 08/22/22 1335 [facility] Work Phone: [phone]) 503-559903-31-2023 Hospital Discharge instructionsAmbulatory Orders* Initiate Home Health Time Frame: 08/22/22, Location: Determined By Patient Additional Instructions I may not have addressed or treated all of your medical illnesses or the abnormal blood work or imaging studies during this hospitalization. Please ask your primary care provider to obtain [facility] records entirely to follow up on all of the abnormal physical, laboratory, and imaging findings that I have not addressed. Please follow-up with Dr. Romero to evaluate your circulation Please return back to the emergency room or seek medical attention if your symptoms worsen or return. Discharging you from [facility] does not mean that your medical care ends here and now. You may still need additional monitoring, work up, investigation, and treatment plan to be handled from this point on by out patient providers including your primary care provider and specialists. For any medication question, please contact your retail pharmacist or your primary care provider. Thank you. HOME HEALTH TO MANAGE: Nursing to eval and treat Monitor VS per protocol--HTN Monitor Vascular assessment--PVD Monitor for increased signs of infection and skin assessment--Toenail abscess Daily wound care to left great toe for 7 day: *Neosporin and dry sterile dressing Assist with glucose control Assist with medication management and provide [facility] Work Phone: [phone] 476-128603-31-2023 Progress note Author Shameka Romero [facility] August 22, 2022 9:56am Note Date/Time August 22, 2022 9:5 6am [facility] [address] [place] [address] Vascular Surgery Progress Note Signed Patient: Addie Jean Baptiste MR#: [id number] : 1975 Acct:[id number] Age/Sex: 47 / F Adm Date: 3 Loc: 3T Room: [address] [place] [address] Type: ADM IN Attending Dr: Jeana Martini MD Copies to: ~ Date of Service: 08/22/2022 Subjective Subjective Interval history: Patient is extremely anxious this morning and concerned about the procedure. Exam Physical Exam Vital Signs: Temp Pulse Resp BP Pulse Ox O2 Del Method 98.2 F 89 18 100/61 99 Room Air 08/22/22 04:00 08/22/22 04:00 08/22/22 04:00 08/22/22 04:00 08/22/22 04:00 08/22/22 04:00 Const General: anxious Objective Labs 08/21/22 05:20 08/22/22 05:50 Other Labs: Laboratory Results - last 24 hr 08/21/22 08/21/22 08/21/22 11:11 16:25 21:19 PHA Creatinine Clear Sodium Potassium Chloride Carbon Dioxide Anion Gap BUN Creatinine Est GFR (CKD-EPI) Glucose POC Glucose 81 206 339 POC Glucose Comment Glu2: cleaned meter Glu2: cleaned meter Calcium Phosphorus Magnesium 08/22/22 08/22/22 05:50 06:43 PHA Creatinine Clear 70.62 Sodium 143 Potassium 4.0 Chloride 111 H Carbon Dioxide 25.9 Anion Gap 10.1 BUN 20 Creatinine 1.22 H Est GFR (CKD-EPI) 55.771 Glucose 141 H POC Glucose 140 POC Glucose Comment Glu2: cleaned meter Calcium 8.1 L Phosphorus 3.8 Magnesium 1.6 L Microbiology Microbiology: Microbiology - Results from entire visit 08/20/22 15:49 Blood - Port Blood Culture - Preliminary No Growth 1 Day 08/20/22 10:13 Blood - Right Antecubital Blood Culture - Preliminary No Growth 1 Day A&P - Vascular Assessment/Plan (1) Peripheral vascular disease: My initial intention was to perform a left leg angiogram on this patient in order to assess her blood supply and potentially improve the blood supply to theleft foot. We did bring the patient down to the special suite and placed her onthe angiography table. She is extremely anxious and mildly distraught. In addition the nursing staff was having difficulty with the IV access. I decided to abort the procedure today for concerns of patient's safety and comfort. Thisprocedure will need to be scheduled in the operating room setting. I recommend we have anesthesia involved in order to protect her airway and provide adequate anesthesia and comfort for the patient. This is not an emergency and we can arrange this as an outpatient. Code(s): I73.9 - Peripheral vascular disease, unspecified Status: Acute (2) Abscess of toenail on left foot: Code(s): L03.032 - Cellulitis of left toe Status: Acute Documented By: Shameka Romero MD 08/22/22 0954 Signed By: <Electronically signed by Shameka Romero MD> 08/22/22 0956 [facility] Work Phone: [phone] Progress note Author Jeana Martini [facility] August 22, 2022 9:54am Note Date/Time August 22, 2022 9:5 5am [facility] [address] [place] [address] Hospitalist Progress Note Signed Patient: Addie Jean Baptiste MR#: [id number] : 1975 Acct:[id number] Age/Sex: 47 / F Adm Date: 3 Loc: 3T Room: [address] [place] [address] Type: ADM IN Attending Dr: Jeana Martini MD Copies to: ~ Date of Service: 08/22/2022 Subjective Subjective Narrative: Following up on the patient. No new symptoms since yesterday. Exam Physical Exam Vital Signs: Temp Pulse Resp BP Pulse Ox O2 Del Method 98.2 F 89 18 100/61 99 Room Air 08/22/22 04:00 08/22/22 04:00 08/22/22 04:00 08/22/22 04:00 08/22/22 04:00 08/22/22 04:00 Narrative: [pt is awake and alert. oriented to place, time and person, morbidly obese HEENT: [place] conjunctiva and NL buccal mucosa Neck: Supple, no tenderness Endocrine: No Thyromegaly. Vascular: No JVD or carotid bruit. Lymphatic: No cervical lymphadenopathy. Chest: CTA no DTP. Heart RRR, no extra sound or murmur. Abd: Soft, no tenderness, no rebound and no rigidity. Increase abd girth therefore clinically I could not exclude the possibility of intra abd mass or organomegaly. LE: No cyanosis or clubbing, no varices or edema. Toe and foot are wrapped after incision and drainage was completed by podiatry on 08/20. To be inspected by podiatry and infectious disease. Neuro: A A O. Nl speech, comprehension and attention. Nl and symetrical motor and tone examination through out. []] Objective Lab Results 08/21/22 05:20 08/22/22 05:50 Microbiology Results Microbiology 08/20/22 15:49 Blood - Port Blood Culture - Preliminary No Growth 1 Day 08/20/22 10:13 Blood - Right Antecubital Blood Culture - Preliminary No Growth 1 Day Meds Allergies and Active Meds Allergies adhesive tape Allergy (Verified 08/19/22 21:48) Hives codeine Allergy (Verified 08/19/22 21:48) Vomiting fentanyl Allergy (Verified 08/19/22 21:48) Hives ibuprofen Allergy (Verified 08/19/22 21:48) Unknown Reaction Iodinated Contrast Media Allergy (Verified 08/19/22 21:48) Unknown Reaction ketorolac [From Toradol] Allergy (Verified 08/19/22 21:48) Vomiting latex Allergy (Verified 08/19/22 21:48) Hives propoxyphene [From Darvocet-N] Allergy (Verified 08/19/22 21:48) Vomiting tramadol Allergy (Verified 08/19/22 21:48) Vomiting vancomycin Allergy (Verified 08/19/22 21:48) Unknown Reaction linezolid [From Zyvox] Adverse Reaction (Verified 08/19/22 21:48) Vomiting Active Meds: Active Medications Generic Name Dose Route Start Last Admin Trade Name Gretchen PRN Reason Stop Dose Admin Acetaminophen 650 mg 08/20/22 03:41 Acetaminophen 325 Mg Tablet PO 08/20/23 03:40 Q4H PRN Pain Scale 1 - 3 or fever Aspirin 81 mg 08/21/22 14:30 08/22/22 08:26 Aspirin 81 Mg Tablet. PO 08/21/23 14:29 81 mg DAILY SAMEER Administration Atorvastatin Calcium 40 mg 08/21/22 21:00 08/21/22 21:01 Atorvastatin 40 Mg Tablet PO 08/21/23 20:59 40 mg QPM SAMEER Administration Clonidine HCl 0.1 mg 08/20/22 03:41 Clonidine 0.1 Mg Tablet PO 08/20/23 03:40 Q4H PRN Hypertension Dextrose 0 gm 08/20/22 03:41 Dextrose 50% In Water 25 Gm/50 Ml Syringe IV-PUSH 08/20/23 03:40 PRN PRN Hypoglycemia Dextrose 0 gm 08/20/22 10:21 Dextrose 50% In Water 25 Gm/50 Ml Syringe IV-PUSH 08/20/23 10:20 PRN PRN Hypoglycemia Enoxaparin Sodium 40 mg 08/21/22 22:00 08/21/22 21:01 Enoxaparin 40 Mg/0.4 Ml Syringe SUBCUT 08/21/23 21:59 40 mg BID@1000,2200 SAMEER Administration Ergocalciferol 1,250 mcg 08/20/22 09:45 08/20/22 14:44 Ergocalciferol 1,250 Mcg (50,000 Units) Capsule PO 08/20/23 09:44 Not Given Q7D SAMEER Furosemide 20 mg 08/20/22 08:00 08/21/22 09:00 Furosemide 20 Mg Tablet PO 08/20/23 07:59 20 mg DAILY.8A SAMEER Administration Glucose 0 gm 08/20/22 03:41 Dextrose 40% Gel 15 Gm Tube PO 08/20/23 03:40 PRN PRN Hypoglycemia Glucose 0 gm 08/20/22 10:21 Dextrose 40% Gel 15 Gm Tube PO 08/20/23 10:20 PRN PRN Hypoglycemia Ampicillin Sodium/Sulbactam Sodium 3 gm in 100 mls @ 200 mls/hr 08/20/22 08:30 08/22/22 02:53 Unasyn IV 200 mls/hr Q6H SAMEER Administration Sodium Chloride 1,000 mls @ 100 mls/hr 08/21/22 14:45 08/22/22 08:26 0.9% Sodium Chloride 1,000 Ml IV 08/23/22 06:44 100 mls/hr .Q10H SAMEER Administration Insulin Aspart 0 units 08/20/22 12:00 08/22/22 08:27 Insulin Aspart 300 Units/3 Ml Insuln.Pen SUBCUT 08/20/23 11:59 Not Given TID.WM.HS SAMEER Protocol Levetiracetam 750 mg 08/20/22 09:00 08/22/22 08:26 Levetiracetam 250 Mg Tablet PO 08/20/23 08:59 750 mg BID SAMEER Administration Levothyroxine Sodium 75 mcg 08/20/22 06:30 08/22/22 05:36 Levothyroxine 75 Mcg Tablet PO 08/20/23 06:29 75 mcg DAILY@0630 SAMEER Administration Lisinopril 10 mg 08/22/22 09:00 08/22/22 08:27 Lisinopril 10 Mg Tablet PO 08/22/23 08:59 10 mg DAILY SAMEER Administration Metformin HCl 1,000 mg 08/20/22 08:00 08/22/22 08:26 Metformin 500 Mg Tablet PO 08/20/23 07:59 1,000 mg BID.WITH.MEALS SAMEER Administration Pantoprazole Sodium 40 mg 08/21/22 09:00 08/22/22 08:26 Pantoprazole 40 Mg Tablet.Dr PO 08/21/23 08:59 40 mg DAILY SAMEER Administration Pregabalin 150 mg 08/20/22 03:45 08/21/22 21:01 Pregabalin 150 Mg Capsule PO 02/16/23 03:44 150 mg HS SAMEER Administration Quetiapine Fumarate 800 mg 08/20/22 04:00 08/21/22 21:01 Quetiapine Fumarate 200 Mg Tablet PO 08/20/23 03:59 800 mg HS SAMEER Administration Saccharomyces Boulardii 250 mg 08/20/22 08:00 08/22/22 08:26 Saccharomyces Boulardii 250 Mg Capsule PO 08/20/23 07:59 250 mg BID.WITH.MEALS SAMEER Administration Sodium Chloride 0 ml 08/19/22 21:47 08/22/22 05:36 Sodium Chloride 0.9 % 10 Ml Syringe IV-PUSH 08/19/23 21:46 20 ml PRN PRN Administration Flush Tizanidine HCl 4 mg 08/20/22 03:44 08/21/22 21:01 Tizanidine 4 Mg Tablet PO 08/20/23 03:43 4 mg TID PRN Administration Muscle Spasm Tramadol HCl 50 mg 08/20/22 09:05 08/21/22 13:06 Tramadol 50 Mg Tablet PO 02/16/23 09:04 50 mg Q6H PRN Administration Pain Scale 6 - 10 A&P - Hospitalist Assessment/Plan (1) Toe infection: (2) Diabetes: (3) Nicotine dependence: (4) Hypertension: (5) Hypomagnesemia: (6) Diabetic foot infection: (7) Hypophosphatemia: (8) Peripheral vascular disease: Plan Recurrent great toe infection associated with distal ulceration. Patient had incision and drainage by podiatry She continues to be on Unasyn. ID is following. Plan is to discharge patient on oral Augmentin Peripheral vascular disease Discussed this with Dr. Romero. He is recommending angiogram. Continue IV fluid hydration. Hypomagnesemia and hypophosphatemia. Phosphorus and magnesium supplementation. Diabetes. Sliding scale coverage. Counseling about diabetes and diet Hypertension, BP on the low side requiring holding her BP meds DVT prophylaxis Lovenox subcu injection. Documented By: Jeana Martini MD 08/22/2253 Signed By: <Electronically signed by Jeana Martini MD> 08/22/22 0954 [facility] Work Phone: [phone] 575-569803-30-2023 Consult note Author Shameka Romero [facility] August 21, 2022 4:02pm Note Date/Time August 21, 2022 4:0 0pm [facility] [address] [place] [address] Vascular Surgery Consult Note Signed Patient: Addie Jean Baptiste MR#: [id number] : 1975 Acct:[id number] Age/Sex: 47 / F Adm Date: 3 Loc: Room: [address] [place] [address] Type: ADM IN Attending Dr: Jeana Martini MD Copies to: Kip W [place] INFORMATION ASSURANCE ANALYST-C MD Jeana Robert MD~ HPI Consult HPI Reason for consult: Left great toe ulcer History of present illness: Ms. Jean Baptiste is a 47 year old female with a left great toe ulcer. Vascular surgerywas asked to see her with regards to this problem. She also has diminished blood flow in her left foot. Patient states this been present for over a week or 2. This patient does have longstanding diabetes she also has a Mediport in for IV access and she has a pacemaker and defibrillator. cc:: CC: Jeana Martini MD Data of Consult Consult date: 08/21/2022 Requesting Physician: Jeana Martini MD PMFSH Vaccinated for COVID-19?: Yes Medical History Anxiety Arthritis Bipolar disorder Cardiac defibrillator in place Depression Diabetes Migraine Port-A-Cath in place Pseudoseizure Restless leg syndrome Schizophrenia Sciatica Seizures TIA (transient ischemic attack) Vertigo Surgical History History of foot surgery left foot plate History of hysterectomy Hx of cholecystectomy Pacemaker Family History Father CAD (coronary artery disease) Diabetes HTN (hypertension) Mother Seizures Brother Blood disease Social History Smoking Status: Current every day smoker Tobacco Type: e-cigarettes Substance Use Type: None Social History Comments: infusaport Allergies & Active Medications Medications and Allergies Allergies adhesive tape Allergy (Verified 08/19/22 21:48) Hives codeine Allergy (Verified 08/19/22 21:48) Vomiting fentanyl Allergy (Verified 08/19/22 21:48) Hives ibuprofen Allergy (Verified 08/19/22 21:48) Unknown Reaction Iodinated Contrast Media Allergy (Verified 08/19/22 21:48) Unknown Reaction ketorolac [From Toradol] Allergy (Verified 08/19/22 21:48) Vomiting latex Allergy (Verified 08/19/22 21:48) Hives propoxyphene [From Darvocet-N] Allergy (Verified 08/19/22 21:48) Vomiting tramadol Allergy (Verified 08/19/22 21:48) Vomiting vancomycin Allergy (Verified 08/19/22 21:48) Unknown Reaction linezolid [From Zyvox] Adverse Reaction (Verified 08/19/22 21:48) Vomiting Exam Physical Exam Vital Signs: Temp Pulse Resp BP Pulse Ox O2 Del Method 97.5 F L 111 H 16 111/72 98 Room Air 08/21/22 13:05 08/21/22 13:05 08/21/22 13:05 08/21/22 13:05 08/21/22 13:05 08/21/22 13:05 Results Labs 08/21/22 05:20 08/21/22 05:20 Labs: Laboratory Results - last 24 hr 08/20/22 08/20/22 08/21/22 16:13 21:04 05:20 Corrected WBC 8.2 Uncorrected WBC Count 8.2 RBC 3.41 L Hgb 10.7 L Hct 31.3 L MCV 91.8 MCH 31.5 MCHC 34.3 RDW 14.5 Plt Count 291 MPV 6.9 Neut % (Auto) 69.4 Lymph % (Auto) 20.6 Mills % (Auto) 7.4 Eos % (Auto) 1.8 Baso % (Auto) 0.8 Nucleat RBC Rel Count 0.0 Neut # (Auto) 5.7 Lymph # (Auto) 1.7 Mills # (Auto) 0.6 Eos # (Auto) 0.2 Baso # (Auto) 0.1 PHA Creatinine Clear Sodium Potassium Chloride Carbon Dioxide Anion Gap BUN Creatinine Est GFR (CKD-EPI) Glucose POC Glucose 97 97 POC Glucose Comment Glu2: cleaned meter Glu2: cleaned meter Calcium Magnesium 08/21/22 08/21/22 08/21/22 05:20 05:31 11:11 Corrected WBC Uncorrected WBC Count RBC Hgb Hct MCV MCH MCHC RDW Plt Count MPV Neut % (Auto) Lymph % (Auto) Mills % (Auto) Eos % (Auto) Baso % (Auto) Nucleat RBC Rel Count Neut # (Auto) Lymph # (Auto) Mills # (Auto) Eos # (Auto) Baso # (Auto) PHA Creatinine Clear 58.52 Sodium 142 Potassium 4.3 Chloride 109 H Carbon Dioxide 26.3 Anion Gap 11.0 BUN 18 Creatinine 1.47 H D Est GFR (CKD-EPI) 44.592 Glucose 119 H POC Glucose 109 81 POC Glucose Comment Glu2: cleaned meter Calcium 8.9 Magnesium 1.4 L PT 12.2 Seconds (9.0-12.9) 08/20/22 00:19 APTT 62.3 Seconds (25.1-36.5) H 08/20/22 00:19 A&P - Vascular (1) Toe infection: Code(s): L08.9 - Local infection of the skin and subcutaneous tissue, unspecified Status: Acute (2) Peripheral vascular disease: Plan: I did review the patient's noninvasive arterial studies. She has diminished some blood supply to her left foot and toe. She is at risk for amputation of her leg. I suggest we try and organize a diagnostic and possibly therapeutic angiography to improve the blood supply to her foot and toe. She has a contrastallergy and she would be at higher risk for this based on her BMI. Unfortunately I did notice that her creatinine jumped yesterday. We may need tohydrate her and resolve her acute renal insufficiency before we attempt this procedure. We may need to do this as an outpatient next week. We will see and evaluate her again in the morning. Code(s): I73.9 - Peripheral vascular disease, unspecified Status: Acute Documented By: Shameka Romero MD 08/21/22 155 Signed By: <Electronically signed by Shameka Romero MD> 08/21/22 1606 [facility] Work Phone: [phone]) [phone] Progress note Author Lawrence Kim [facility] August 21, 2022 11:22am Note Date/Time August 21, 2022 11: 22am [facility] [address] [place] [address] Infect. Disease Progress Note Signed Patient: Addie Jean Baptiste MR#: [id number] : 1975 Acct:[id number] Age/Sex: 47 / F Adm Date: 3 Loc: 3T Room: [address] [place] [address] Type: ADM IN Attending Dr: Jeana Martini MD Copies to: ~ Date of Service: 08/21/2022 Subjective Interval history: Patient denies any new complaints. Incision and drainage performed at bedside yesterday. No culture sent. Remains on Unasyn Exam Physical Exam Vital Signs: Temp Pulse Resp BP Pulse Ox O2 Del Method 97.6 F 113 H 16 139/73 98 Room Air 08/21/22 08:29 08/21/22 08:29 08/21/22 08:29 08/21/22 08:29 08/21/22 08:29 08/21/22 08:29 Const General: cooperative, comfortable and no acute distress Orientation: oriented x3 HEENT Head: normal to inspection Nose: external nose normal Eyes General: appearance normal, both eyes and all related structures Neck Neck: normal visual inspection Chest Chest palpation & inspection: normal inspection of the chest Resp Effort & Inspection: normal respiratory effort Auscultation: clear to auscultation bilaterally Cardio Rate: regular rate Rhythm: regular rhythm GI Inspection: normal to inspection Palpation: soft and nontender Auscultation: normal bowel sounds Skin Lesions: lesion noted (Denuded skin noted over toe with serous drainage. ) Other: Per the hospitalist H&P there is streaking going up the forefoot but I do not appreciate that currently Extrem General: normal to inspection Objective Labs CBC/BMP: CBC, BMP 08/21/22 08/21/22 05:20 05:20 Corrected WBC 8.2 Uncorrected WBC Count 8.2 RBC 3.41 L Hgb 10.7 L Hct 31.3 L Plt Count 291 Sodium 142 Potassium 4.3 Chloride 109 H Carbon Dioxide 26.3 Anion Gap 11.0 BUN 18 Creatinine 1.47 H D Calcium 8.9 Labs: 08/21/22 05:20 BUN 18 Creatinine 1.47 H D Microbiology Microbiology: Microbiology - Results from entire visit 08/20/22 10:13 Blood - Right Antecubital Blood Culture - Preliminary No Growth 1 Day Allergies and Medications Allergies and Active Meds Allergies adhesive tape Allergy (Verified 08/19/22 21:48) Hives codeine Allergy (Verified 08/19/22 21:48) Vomiting fentanyl Allergy (Verified 08/19/22 21:48) Hives ibuprofen Allergy (Verified 08/19/22 21:48) Unknown Reaction Iodinated Contrast Media Allergy (Verified 08/19/22 21:48) Unknown Reaction ketorolac [From Toradol] Allergy (Verified 08/19/22 21:48) Vomiting latex Allergy (Verified 08/19/22 21:48) Hives propoxyphene [From Darvocet-N] Allergy (Verified 08/19/22 21:48) Vomiting tramadol Allergy (Verified 08/19/22 21:48) Vomiting vancomycin Allergy (Verified 08/19/22 21:48) Unknown Reaction linezolid [From Zyvox] Adverse Reaction (Verified 08/19/22 21:48) Vomiting Active Medications Acetaminophen (Acetaminophen 325 Mg Tablet) 650 mg PO Q4H PRN PRN Reason: Pain Scale 1 - 3 or fever Stop: 08/20/23 03:40 Amlodipine Besylate (Amlodipine 5 Mg Tablet) 5 mg PO DAILY SAMEER Stop: 08/20/23 09:39 Last Admin: 08/21/22 09:00 Dose: 5 mg Clonidine HCl (Clonidine 0.1 Mg Tablet) 0.1 mg PO Q4H PRN PRN Reason: Hypertension Stop: 08/20/23 03:40 Dextrose (Dextrose 50% In Water 25 Gm/50 Ml Syringe) 0 gm IV-PUSH PRN PRN PRN Reason: Hypoglycemia Stop: 08/20/23 03:40 Dextrose (Dextrose 50% In Water 25 Gm/50 Ml Syringe) 0 gm IV-PUSH PRN PRN PRN Reason: Hypoglycemia Stop: 08/20/23 10:20 Enoxaparin Sodium (Enoxaparin 40 Mg/0.4 Ml Syringe) 40 mg SUBCUT DAILY@1000 SAMEER Stop: 08/20/23 09:59 Last Admin: 08/21/22 09:01 Dose: 40 mg Ergocalciferol (Ergocalciferol 1,250 Mcg (50,000 Units) Capsule) 1,250 mcg PO Q7D SAMEER Stop: 08/20/23 09:44 Last Admin: 08/20/22 14:44 Dose: Not Given Furosemide (Furosemide 20 Mg Tablet) 20 mg PO DAILY.8A SAMEER Stop: 08/20/23 07:59 Last Admin: 08/21/22 09:00 Dose: 20 mg Glucose (Dextrose 40% Gel 15 Gm Tube) 0 gm PO PRN PRN PRN Reason: Hypoglycemia Stop: 08/20/23 03:40 Glucose (Dextrose 40% Gel 15 Gm Tube) 0 gm PO PRN PRN PRN Reason: Hypoglycemia Stop: 08/20/23 10:20 Ampicillin Sodium/Sulbactam Sodium (Unasyn) 3 gm in 100 mls @ 200 mls/hr IV Q6HSCH Last Admin: 08/21/22 09:02 Dose: 200 mls/hr Sodium Phosphate 30 mmol/ (Sodium Chloride) 260 mls @ 43.333 mls/hr IV ONCE ONE Stop: 08/21/22 13:59 Insulin Aspart (Insulin Aspart 300 Units/3 Ml Insuln.Pen) 0 units SUBCUT TID.WM.[facility]; Protocol Stop: 08/20/23 11:59 Last Admin: 08/21/22 09:03 Dose: Not Given Levetiracetam (Levetiracetam 250 Mg Tablet) 750 mg PO BID SAMEER Stop: 08/20/23 08:59 Last Admin: 08/21/22 08:59 Dose: 750 mg Levothyroxine Sodium (Levothyroxine 75 Mcg Tablet) 75 mcg PO DAILY@0630 SAMEER Stop: 08/20/23 06:29 Last Admin: 08/21/22 06:09 Dose: 75 mcg Lisinopril (Lisinopril 40 Mg Tablet) 40 mg PO DAILY [facility] Stop: 08/20/23 08:59 Last Admin: 08/21/22 09:01 Dose: 40 mg Metformin HCl (Metformin 500 Mg Tablet) 1,000 mg PO BID.WITH.MEALS [facility] Stop: 08/20/23 07:59 Last Admin: 08/21/22 09:00 Dose: 1,000 mg Pantoprazole Sodium (Pantoprazole 40 Mg Tablet.Dr) 40 mg PO DAILY [facility] Stop: 08/21/23 08:59 Last Admin: 08/21/22 09:01 Dose: 40 mg Pregabalin (Pregabalin 150 Mg Capsule) 150 mg PO [facility] Stop: 02/16/23 03:44 Last Admin: 08/20/22 21:12 Dose: 150 mg Quetiapine Fumarate (Quetiapine Fumarate 200 Mg Tablet) 800 mg PO [facility] Stop: 08/20/23 03:59 Last Admin: 08/20/22 21:12 Dose: 800 mg Saccharomyces Boulardii (Saccharomyces Boulardii 250 Mg Capsule) 250 mg PO BID.WITH.MEALS [facility] Stop: 08/20/23 07:59 Last Admin: 08/21/22 08:59 Dose: 250 mg Sodium Chloride (Sodium Chloride 0.9 % 10 Ml Syringe) 0 ml IV-PUSH PRN PRN PRN Reason: Flush Stop: 08/19/23 21:46 Last Admin: 08/21/22 03:28 Dose: 10 ml Tizanidine HCl (Tizanidine 4 Mg Tablet) 4 mg PO TID PRN PRN Reason: Muscle Spasm Stop: 08/20/23 03:43 Last Admin: 08/20/22 21:12 Dose: 4 mg Tramadol HCl (Tramadol 50 Mg Tablet) 50 mg PO Q6H PRN PRN Reason: Pain Scale 6 - 10 Stop: 02/16/23 09:04 Last Admin: 08/20/22 21:12 Dose: 50 mg A&P - Infectious Disease Assessment/Plan (1) Toe infection: Code(s): L08.9 - Local infection of the skin and subcutaneous tissue, unspecified Status: Acute Plan Now vascular has been consulted based on PVRs. We will send prescription for Augmentin to her pharmacy so she can pick this up when discharge plan. Can continue on IV Unasyn while she remains in the hospital. Only blood cultures done this hospital stay without any cultures taken from the toe itself. Documented By: Lawrence Kim MD 08/21/22 1119 Signed By: <Electronically signed by MD Lawrence Kim> 08/21/22 1122 [facility] Work Phone: [phone] 131-225403-30-2023 Progress note Author Jeana Martini [facility] August 21, 2022 10:10am Note Date/Time August 21, 2022 10: 10am [facility] [address] [place] [address] Hospitalist Progress Note Signed Patient: Addie Jean Baptiste MR#: [id number] : 1975 Acct:[id number] Age/Sex: 47 / F Adm Date: 3 Loc: Room: [address] [place] [address] Type: ADM IN Attending Dr: Jeana Martini MD Copies to: ~ Date of Service: 08/21/2022 Subjective Subjective Narrative: Following up on the patient. The patient continues to have pain in the toe. Nochest pain or palpitation. No abdominal pain, nausea or vomiting Exam Physical Exam Vital Signs: Temp Pulse Resp BP Pulse Ox O2 Del Method 97.6 F 113 H 16 139/73 98 Room Air 08/21/22 08:29 08/21/22 08:29 08/21/22 08:08/21/22 08:08/21/22 08:29 08/21/22 08:29 Narrative: [pt is awake and alert. oriented to place, time and person, morbidly obese HEENT: [place] conjunctiva and NL buccal mucosa Neck: Supple, no tenderness Endocrine: No Thyromegaly. Vascular: No JVD or carotid bruit. Lymphatic: No cervical lymphadenopathy. Chest: CTA no DTP. Heart RRR, no extra sound or murmur. Abd: Soft, no tenderness, no rebound and no rigidity. Increase abd girth therefore clinically I could not exclude the possibility of intra abd mass or organomegaly. LE: No cyanosis or clubbing, no varices or edema. Toe and foot are wrapped after incision and drainage was completed by podiatry on 08/20. To be inspected by podiatry and infectious disease. Neuro: A A O. Nl speech, comprehension and attention. Nl and symetrical motor and tone examination through out. []] Objective Lab Results 08/21/22 05:20 08/21/22 05:20 Meds Allergies and Active Meds Allergies adhesive tape Allergy (Verified 08/19/22 21:48) Hives codeine Allergy (Verified 08/19/22 21:48) Vomiting fentanyl Allergy (Verified 08/19/22 21:48) Hives ibuprofen Allergy (Verified 08/19/22 21:48) Unknown Reaction Iodinated Contrast Media Allergy (Verified 08/19/22 21:48) Unknown Reaction ketorolac [From Toradol] Allergy (Verified 08/19/22 21:48) Vomiting latex Allergy (Verified 08/19/22 21:48) Hives propoxyphene [From Darvocet-N] Allergy (Verified 08/19/22 21:48) Vomiting tramadol Allergy (Verified 08/19/22 21:48) Vomiting vancomycin Allergy (Verified 08/19/22 21:48) Unknown Reaction linezolid [From Zyvox] Adverse Reaction (Verified 08/19/22 21:48) Vomiting Active Meds: Active Medications Generic Name Dose Route Start Last Admin Trade Name Freq PRN Reason Stop Dose Admin Acetaminophen 650 mg 08/20/22 03:41 Acetaminophen 325 Mg Tablet PO 08/20/23 03:40 Q4H PRN Pain Scale 1 - 3 or fever Amlodipine Besylate 5 mg 08/20/22 09:40 08/21/22 09:00 Amlodipine 5 Mg Tablet PO 08/20/23 09:39 5 mg DAILY SAMEER Administration Clonidine HCl 0.1 mg 08/20/22 03:41 Clonidine 0.1 Mg Tablet PO 08/20/23 03:40 Q4H PRN Hypertension Dextrose 0 gm 08/20/22 03:41 Dextrose 50% In Water 25 Gm/50 Ml Syringe IV-PUSH 08/20/23 03:40 PRN PRN Hypoglycemia Dextrose 0 gm 08/20/22 10:21 Dextrose 50% In Water 25 Gm/50 Ml Syringe IV-PUSH 08/20/23 10:20 PRN PRN Hypoglycemia Enoxaparin Sodium 40 mg 08/20/22 10:00 08/21/22 09:01 Enoxaparin 40 Mg/0.4 Ml Syringe SUBCUT 08/20/23 09:59 40 mg DAILY@1000 SAMEER Administration Ergocalciferol 1,250 mcg 08/20/22 09:45 08/20/22 14:44 Ergocalciferol 1,250 Mcg (50,000 Units) Capsule PO 08/20/23 09:44 Not Given Q7D SAMEER Furosemide 20 mg 08/20/22 08:00 08/21/22 09:00 Furosemide 20 Mg Tablet PO 08/20/23 07:59 20 mg DAILY.8A SAMEER Administration Glucose 0 gm 08/20/22 03:41 Dextrose 40% Gel 15 Gm Tube PO 08/20/23 03:40 PRN PRN Hypoglycemia Glucose 0 gm 08/20/22 10:21 Dextrose 40% Gel 15 Gm Tube PO 08/20/23 10:20 PRN PRN Hypoglycemia Ampicillin Sodium/Sulbactam Sodium 3 gm in 100 mls @ 200 mls/hr 08/20/22 08:30 08/21/22 09:02 Unasyn IV 200 mls/hr Q6H SAMEER Administration Sodium Phosphate 30 mmol/ 260 mls @ 43.333 mls/hr 08/21/22 08:00 Sodium Chloride IV 08/21/22 13:59 ONCE ONE Insulin Aspart 0 units 08/20/22 12:00 08/21/22 09:03 Insulin Aspart 300 Units/3 Ml Insuln.Pen SUBCUT 08/20/23 11:59 Not Given TID.WM.HS [facility] Protocol Levetiracetam 750 mg 08/20/22 09:00 08/21/22 08:59 Levetiracetam 250 Mg Tablet PO 08/20/23 08:59 750 mg BID SAMEER Administration Levothyroxine Sodium 75 mcg 08/20/22 06:30 08/21/22 06:09 Levothyroxine 75 Mcg Tablet PO 08/20/23 06:29 75 mcg DAILY@0630 SAMEER Administration Lisinopril 40 mg 08/20/22 09:00 08/21/22 09:01 Lisinopril 40 Mg Tablet PO 08/20/23 08:59 40 mg DAILY SAMEER Administration Metformin HCl 1,000 mg 08/20/22 08:00 08/21/22 09:00 Metformin 500 Mg Tablet PO 08/20/23 07:59 1,000 mg BID.WITH.MEALS SAMEER Administration Pantoprazole Sodium 40 mg 08/21/22 09:00 08/21/22 09:01 Pantoprazole 40 Mg Tablet.Dr PO 08/21/23 08:59 40 mg DAILY SAMEER Administration Pregabalin 150 mg 08/20/22 03:45 08/20/22 21:12 Pregabalin 150 Mg Capsule PO 02/16/23 03:44 150 mg HS SAMEER Administration Quetiapine Fumarate 800 mg 08/20/22 04:00 08/20/22 21:12 Quetiapine Fumarate 200 Mg Tablet PO 08/20/23 03:59 800 mg HS SAMEER Administration Saccharomyces Boulardii 250 mg 08/20/22 08:00 08/21/22 08:59 Saccharomyces Boulardii 250 Mg Capsule PO 08/20/23 07:59 250 mg BID.WITH.MEALS SAMEER Administration Sodium Chloride 0 ml 08/19/22 21:47 08/21/22 03:28 Sodium Chloride 0.9 % 10 Ml Syringe IV-PUSH 08/19/23 21:46 10 ml PRN PRN Administration Flush Tizanidine HCl 4 mg 08/20/22 03:44 08/20/22 21:12 Tizanidine 4 Mg Tablet PO 08/20/23 03:43 4 mg TID PRN Administration Muscle Spasm Tramadol HCl 50 mg 08/20/22 09:05 08/20/22 21:12 Tramadol 50 Mg Tablet PO 02/16/23 09:04 50 mg Q6H PRN Administration Pain Scale 6 - 10 A&P - Hospitalist Assessment/Plan (1) Toe infection: (2) Diabetes: (3) Nicotine dependence: (4) Hypertension: (5) Hypomagnesemia: (6) Diabetic foot infection: (7) Hypophosphatemia: (8) Peripheral vascular disease: Plan Recurrent great toe infection associated with distal ulceration. Patient had incision and drainage by podiatry She continues to be on Unasyn. ID is following I ordered PVR which came back positive for PVD. I requested vascular evaluation Hypomagnesemia and hypophosphatemia. Phosphorus and magnesium supplementation. Diabetes. Sliding scale coverage. Counseling about diabetes and diet Hypertension, poor control. Resume home lisinopril 40 mg daily. I added amlodipine daily DVT prophylaxis Lovenox subcu injection. Documented By: Jeana Martini MD 08/21/22 1008 Signed By: <Electronically signed by Jeana Martini MD> 08/21/22 1010 [facility] Work Phone: [phone] Consult note Author Swapnil Castillo [facility] August 20, 2022 1:14pm Note Date/Time August 20, 2022 1:1 3pm [facility] [address] [place] [address] Podiatry Consult Note Signed Patient: Addie Jean Baptiste MR#: [id number] : 1975 Acct:[id number] Age/Sex: 47 / F Adm Date: 3 Loc: Room: [address] [place] [address] Type: ADM IN Attending Dr: Jeana Martini MD Copies to: LUPE Muñiz MD~ HPI Data of Consult Consult Date: 07/22/22 Requesting Physician: Jeana Martini MD Primary Care Provider: LOLI Quintero Consult Narrative History of present illness: Ms. Jean Baptiste is a 47 year old female seen today per request of hospitalist for leftgreat toe infection as well and cellulitis to left foot. Patient is type II diabetic on was last seen by our podiatry group in September 2021. She did miss her surgery at that time. She is a type II diabetic with poorly controlled sugars with type 2 diabetes and also has multiple medical issues as well as history of pacemaker and TIA. Patient states poor glycemic control and also has numbness to her feet. She states issue in the past with problems with the great toe area and has been on oral antibiotics in the past with ER visits in the past but no follow-up withpodiatry for approximately the past year. Denies nausea vomiting chills ROS: GI: denies abdominal pain or cramping or loose stool on IV abx CARDIO: denies CP/SOB/Irregular rhythms or palpitations. Pause history of pacemaker and TIA MS:Denies calf pains PMFSH Attestation Statement: The following information was validated with the patient. Vaccinated for COVID-19?: Yes Medical History Anxiety Arthritis Bipolar disorder Cardiac defibrillator in place Depression Diabetes Migraine Port-A-Cath in place Pseudoseizure Restless leg syndrome Schizophrenia Sciatica Seizures TIA (transient ischemic attack) Vertigo Surgical History History of foot surgery left foot plate History of hysterectomy Hx of cholecystectomy Pacemaker Family History Father CAD (coronary artery disease) Diabetes HTN (hypertension) Mother Seizures Brother Blood disease Social History Smoking Status: Current every day smoker Tobacco Type: e-cigarettes Substance Use Type: None Social History Comments: infusaport Meds Medications and Allergies Allergies adhesive tape Allergy (Verified 08/19/22 21:48) Hives codeine Allergy (Verified 08/19/22 21:48) Vomiting fentanyl Allergy (Verified 08/19/22 21:48) Hives ibuprofen Allergy (Verified 08/19/22 21:48) Unknown Reaction Iodinated Contrast Media Allergy (Verified 08/19/22 21:48) Unknown Reaction ketorolac [From Toradol] Allergy (Verified 08/19/22 21:48) Vomiting latex Allergy (Verified 08/19/22 21:48) Hives propoxyphene [From Darvocet-N] Allergy (Verified 08/19/22 21:48) Vomiting tramadol Allergy (Verified 08/19/22 21:48) Vomiting vancomycin Allergy (Verified 08/19/22 21:48) Unknown Reaction linezolid [From Zyvox] Adverse Reaction (Verified 08/19/22 21:48) Vomiting Home Medications levothyroxine 75 mcg tablet 75 mcg PO DAILY 07/23/18 [History Confirmed 08/20/22] metformin 1,000 mg tablet 1,000 mg PO BID 07/23/18 [History Confirmed 08/20/22] omeprazole magnesium 10 mg oral suspension,delayed release (Prilosec) 40 mg PO DAILY 07/23/18 [History Confirmed 08/20/22] insulin lispro 100 unit/mL subcutaneous solution (Admelog U-100 Insulin lispro) See Rx Instructions .Route .COMPLEX 09/07/18 [History Confirmed 09/12/21] levetiracetam 500 mg tablet 750 mg PO BID 08/04/19 [History Confirmed 08/20/22] pregabalin 150 mg capsule 150 mg PO HS 08/04/19 [History Confirmed 08/20/22] quetiapine 400 mg tablet 800 mg PO HS 08/04/19 [History Confirmed 08/20/22] doxycycline hyclate 100 mg tablet 100 mg PO BID 08/20/22 [History Confirmed 08/20/22] lisinopril 40 mg tablet 40 mg PO DAILY 08/20/22 [History Confirmed 08/20/22] promethazine 25 mg tablet mg 08/20/22 [History] tizanidine 4 mg tablet 4 mg PO TID PRN Muscle Spasm 08/20/22 [History Confirmed 08/20/22] Exam Physical Exam Vital Signs: Temp Pulse Resp BP Pulse Ox O2 Del Method 97.5 F L 85 16 103/68 99 Room Air 08/20/22 08:00 08/20/22 08:00 08/20/22 08:00 08/20/22 08:00 08/20/22 08:00 08/20/22 08:00 Additional Findings Additional Findings: LE EXAM: DERM: Left hallux has positive fibrous slough to medial lateral borders with notable positive erythema and redness and streaking up to dorsum of midfoot region of the left foot. Notable serosanguineous drainage from the left great toe region. Positive hair growth noted left foot. Negative fluctuance left great toe with negative ulcerations present but intense erythema to the left great toe up to the IPJ region of the hallux VASC: positive dp/pt pedals pulses to left NEURO: gross sensation absent to left and right foot MS: Positive POP to left hallux XRAY: Reviewed radiographs with negative findings of osteolysis of left great toe region with negative gas noted tissue Results Labs 08/20/22 06:47 08/20/22 06:47 Reviewed WBC of 8.1 ESR 47 mm/hr (0-19) H 08/20/22 00:19 Hemoglobin A1c 9.3 % (4.3-5.6) H 08/20/22 06:47 Assessment/Plan (1) Cellulitis of left foot: Plan: 1. Patient continues IV antibiotics and do recommend possible discharge in nearfuture with oral antibiotic for the next 7 to 10 days or per recommendation of infectious disease and appreciate infectious disease consult today. Reviewed labs and x-ray today 2. Patient had incision and drainage of abscess to left great toe with normal sterile saline flush and total temporary nail avulsion to left hallux. Patient consented to procedure today and had sterile prep and drape of the left great toe region with approximately 3 cc of Xylocaine 2% plain injected in a digital block fashion which point time utilizing a suture kit the left great toenail wasavulsed and normal sterile saline flush to the left nailbed was performed. Dry sterile dressing was then applied patient tolerated anesthesia procedure well. Advise Neosporin and dry sterile dressing for the next 7 days to be applied daily. 3. Request patient to follow-up in office once discharge for diabetic foot examand instructions in the future as well as possible further surgical interventionfor ankle issues which she missed prior appointment 1 year ago and expressed interest in possibly having surgery again. No further follow-up at this time please contact podiatry if any further issues Code(s): L03.116 - Cellulitis of left lower limb (2) Abscess of toenail on left foot: Code(s): L03.032 - Cellulitis of left toe (3) Onychocryptosis: Code(s): L60.0 - Ingrowing nail (4) Toe pain, left: Code(s): M79.675 - Pain in left toe(s) (5) Diabetes mellitus due to underlying condition with diabetic neuropathy, without long-term current use of insulin: Code(s): E08.40 - Diabetes mellitus due to underlying condition with diabetic neuropathy,unspecified Documented By: Swapnil Castillo DPM 08/20/22 1306 Signed By: <Electronically signed by LUPE Castillo> 08/20/22 1314 [facility] Work Phone: [phone] Consult note Author Lawrence Kim [facility] August 20, 2022 10:27am Note Date/Time August 20, 2022 10: 26am [facility] [address] [place] [address] Infect. Disease Consult Note Signed Patient: Addie Jean Baptiste MR#: [id number] : 1975 Acct:[id number] Age/Sex: 47 / F Adm Date: 3 Loc: Room: [address] [place] [address] Type: ADM INOo Attending Dr: Jeana Martini MD Copies to: MD Jeana Magana MD~ HPI Data of Consult Consult date: 08/20/22 Requesting Physician: Jeana Martini MD Primary Care Provider: LOLI Quintero Consult Narrative History of present illness: Ms. Jean Baptiste is a 47 year old female who was admitted for left toe wound that apparently has been present for a month. She actually tells me she was hospitalized in July at [facility] for 4 days for this. She apparently also seesDr. Box. On consulted due to this ulceration. Patient states it started as ablister that then popped. She is having a lot of pain and asked me for strongerpain medication. She is currently on IV Unasyn. CC: Jeana Martini MD Review of Systems Review of Systems All other systems reviewed & are negative unless noted below or in HPI [facility] Attestation Statement: The following information was validated with the patient. Vaccinated for COVID-19?: Yes Medical History (Updated 08/20/22 @ 03:53 by Ezekiel Mathew DO) Anxiety Arthritis Bipolar disorder Cardiac defibrillator in place Depression Diabetes Migraine Port-A-Cath in place Pseudoseizure Restless leg syndrome Schizophrenia Sciatica Seizures TIA (transient ischemic attack) Vertigo Surgical History History of foot surgery left foot plate History of hysterectomy Hx of cholecystectomy Pacemaker Family History Father CAD (coronary artery disease) Diabetes HTN (hypertension) Mother Seizures Brother Blood disease Social History Smoking Status: Current every day smoker Tobacco Type: e-cigarettes Substance Use Type: None Social History Comments: infusaport Allergies and Medications Allergies and Active Meds Allergies adhesive tape Allergy (Verified 08/19/22 21:48) Hives codeine Allergy (Verified 08/19/22 21:48) Vomiting fentanyl Allergy (Verified 08/19/22 21:48) Hives ibuprofen Allergy (Verified 08/19/22 21:48) Unknown Reaction Iodinated Contrast Media Allergy (Verified 08/19/22 21:48) Unknown Reaction ketorolac [From Toradol] Allergy (Verified 08/19/22 21:48) Vomiting latex Allergy (Verified 08/19/22 21:48) Hives propoxyphene [From Darvocet-N] Allergy (Verified 08/19/22 21:48) Vomiting tramadol Allergy (Verified 08/19/22 21:48) Vomiting vancomycin Allergy (Verified 08/19/22 21:48) Unknown Reaction linezolid [From Zyvox] Adverse Reaction (Verified 08/19/22 21:48) Vomiting Active Medications Acetaminophen (Acetaminophen 325 Mg Tablet) 650 mg PO Q4H PRN PRN Reason: Pain Scale 1 - 3 or fever Stop: 08/20/23 03:40 Amlodipine Besylate (Amlodipine 5 Mg Tablet) 5 mg PO DAILY [facility] Stop: 08/20/23 09:39 Clonidine HCl (Clonidine 0.1 Mg Tablet) 0.1 mg PO Q4H PRN PRN Reason: Hypertension Stop: 08/20/23 03:40 Dextrose (Dextrose 50% In Water 25 Gm/50 Ml Syringe) 0 gm IV-PUSH PRN PRN PRN Reason: Hypoglycemia Stop: 08/20/23 03:40 Enoxaparin Sodium (Enoxaparin 40 Mg/0.4 Ml Syringe) 40 mg SUBCUT DAILY@1000 [facility] Stop: 08/20/23 09:59 Last Admin: 08/20/22 09:29 Dose: 40 mg Ergocalciferol (Ergocalciferol 1,250 Mcg (50,000 Units) Capsule) 1,250 mcg PO Q7D [facility] Stop: 08/20/23 09:44 Furosemide (Furosemide 20 Mg Tablet) 20 mg PO DAILY.8A SAMEER Stop: 08/20/23 07:59 Last Admin: 08/20/22 09:26 Dose: 20 mg Glucose (Dextrose 40% Gel 15 Gm Tube) 0 gm PO PRN PRN PRN Reason: Hypoglycemia Stop: 08/20/23 03:40 Ampicillin Sodium/Sulbactam Sodium (Unasyn) 3 gm in 100 mls @ 200 mls/hr IV Q6HSCH Last Admin: 08/20/22 09:27 Dose: 200 mls/hr Levetiracetam (Levetiracetam 250 Mg Tablet) 750 mg PO BID SAMEER Stop: 08/20/23 08:59 Last Admin: 08/20/22 08:24 Dose: 750 mg Levothyroxine Sodium (Levothyroxine 75 Mcg Tablet) 75 mcg PO DAILY@0630 SAMEER Stop: 08/20/23 06:29 Last Admin: 08/20/22 06:15 Dose: 75 mcg Lisinopril (Lisinopril 40 Mg Tablet) 40 mg PO DAILY SAMEER Stop: 08/20/23 08:59 Last Admin: 08/20/22 08:25 Dose: 40 mg Metformin HCl (Metformin 500 Mg Tablet) 1,000 mg PO BID.WITH.MEALS SAMEER Stop: 08/20/23 07:59 Last Admin: 08/20/22 08:25 Dose: 1,000 mg Pantoprazole Sodium (Pantoprazole 40 Mg Tablet.Dr) 40 mg PO DAILY SAMEER Stop: 08/21/23 08:59 Pregabalin (Pregabalin 150 Mg Capsule) 150 mg PO HS SAMEER Stop: 02/16/23 03:44 Last Admin: 08/20/22 04:09 Dose: 150 mg Quetiapine Fumarate (Quetiapine Fumarate 200 Mg Tablet) 800 mg PO HS SAMEER Stop: 08/20/23 03:59 Last Admin: 08/20/22 04:09 Dose: 800 mg Saccharomyces Boulardii (Saccharomyces Boulardii 250 Mg Capsule) 250 mg PO BID.WITH.MEALS SAMEER Stop: 08/20/23 07:59 Last Admin: 08/20/22 08:26 Dose: 250 mg Sodium Chloride (Sodium Chloride 0.9 % 10 Ml Syringe) 0 ml IV-PUSH PRN PRN PRN Reason: Flush Stop: 08/19/23 21:46 Tizanidine HCl (Tizanidine 4 Mg Tablet) 4 mg PO TID PRN PRN Reason: Muscle Spasm Stop: 08/20/23 03:43 Last Admin: 08/20/22 08:50 Dose: 4 mg Tramadol HCl (Tramadol 50 Mg Tablet) 50 mg PO Q6H PRN PRN Reason: Pain Scale 6 - 10 Stop: 02/16/23 09:04 Exam Physical Exam Vital Signs: Temp Pulse Resp BP Pulse Ox O2 Del Method 97.9 F 70 16 176/105 H 100 Room Air 08/20/22 03:36 08/20/22 03:36 08/20/22 03:36 08/20/22 03:36 08/20/22 03:36 08/20/22 04:26 Const General: cooperative, comfortable and no acute distress Orientation: oriented x3 HEENT Head: normal to inspection Nose: external nose normal Eyes General: appearance normal, both eyes and all related structures Neck Neck: normal visual inspection Chest Chest palpation & inspection: normal inspection of the chest Resp Effort & Inspection: normal respiratory effort Auscultation: clear to auscultation bilaterally Cardio Rate: regular rate Rhythm: regular rhythm GI Inspection: normal to inspection Palpation: soft and nontender Auscultation: normal bowel sounds Skin Lesions: lesion noted (Denuded skin noted over toe with serous drainage. ) ulcerleft great toe Other: Per the hospitalist H&P there is streaking going up the forefoot but I do not appreciate that currently Extrem General: normal to inspection Other: see skin Results Labs 08/20/22 06:47 08/20/22 06:47 Labs: 08/20/22 00:19: Corrected WBC 8.5, Uncorrected WBC Count 8.5 08/20/22 00:19: BUN 15, Creatinine 0.93 08/20/22 06:47: Corrected WBC 8.9, Uncorrected WBC Count 8.9 08/20/22 06:47: BUN 12, Creatinine 0.81 Laboratory Results - last 24 hr 08/20/22 08/20/22 08/20/22 00:19 00:19 00:19 Corrected WBC 8.5 Uncorrected WBC Count 8.5 RBC 3.77 Hgb 11.6 L Hct 34.4 MCV 91.2 MCH 30.8 MCHC 33.8 RDW 14.5 Plt Count 326 MPV 6.9 Neut % (Auto) 64.7 Lymph % (Auto) 27.3 Mills % (Auto) 6.0 Eos % (Auto) 1.3 Baso % (Auto) 0.7 Nucleat RBC Rel Count 0.0 Neut # (Auto) 5.5 Lymph # (Auto) 2.3 Mills # (Auto) 0.5 Eos # (Auto) 0.1 Baso # (Auto) 0.1 Monocyte Dist Width 20.72 H ESR 47 H PT 12.2 INR 1.1 APTT 62.3 H PHA Creatinine Clear 91.29 Sodium 141 Potassium 3.3 L Chloride 105 Carbon Dioxide 28.0 Anion Gap 11.3 BUN 15 Creatinine 0.93 Est GFR (CKD-EPI) > 60.0 Glucose 234 H POC Glucose POC Glucose Comment Estimat Average Glucose Hemoglobin A1c Calcium 9.2 Phosphorus Magnesium 1.2 L Total Bilirubin 0.4 AST 9 L ALT 7 Alkaline Phosphatase 82 Troponin I High Sens C-Reactive Prot, Quant 1.9 H Total Protein 6.4 Albumin 3.6 Globulin 2.8 Albumin/Globulin Ratio 1.3 25-OH Vitamin D Total Urine Color Urine Appearance Urine pH Ur Specific [place] Urine Protein Urine Glucose (UA) Urine Ketones Urine Occult Blood Urine Nitrite Urine Bilirubin Urine Urobilinogen Ur Leukocyte Esterase Urine RBC Urine WBC Ur Squamous Epith Cells Urine Bacteria Hyaline Casts Urine Opiates Screen Ur Barbiturates Screen Ur Phencyclidine Scrn Ur Amphetamines Screen U Benzodiazepines Scrn Urine Cocaine Screen U Marijuana (THC) Screen 08/20/22 08/20/22 08/20/22 00:19 01:00 01:07 Corrected WBC Uncorrected WBC Count RBC Hgb Hct MCV MCH MCHC RDW Plt Count MPV Neut % (Auto) Lymph % (Auto) Mills % (Auto) Eos % (Auto) Baso % (Auto) Nucleat RBC Rel Count Neut # (Auto) Lymph # (Auto) Mills # (Auto) Eos # (Auto) Baso # (Auto) Monocyte Dist Width ESR PT INR APTT PHA Creatinine Clear Sodium Potassium Chloride Carbon Dioxide Anion Gap BUN Creatinine Est GFR (CKD-EPI) Glucose POC Glucose 226 POC Glucose Comment Estimat Average Glucose Hemoglobin A1c Calcium Phosphorus Magnesium Total Bilirubin AST ALT Alkaline Phosphatase Troponin I High Sens 8.2 C-Reactive Prot, Quant Total Protein Albumin Globulin Albumin/Globulin Ratio 25-OH Vitamin D Total Urine Color Yellow Urine Appearance Clear Urine pH 6.5 Ur Specific [place] 1.017 Urine Protein 100 H Urine Glucose (UA) >=1000 H Urine Ketones Negative Urine Occult Blood Trace H Urine Nitrite Negative Urine Bilirubin Negative Urine Urobilinogen Normal Ur Leukocyte Esterase Negative Urine RBC 5-9 H Urine WBC 10-19 H Ur Squamous Epith Cells 3-4 H Urine Bacteria 1+ H Hyaline Casts 0-8 Urine Opiates Screen Ur Barbiturates Screen Ur Phencyclidine Scrn Ur Amphetamines Screen U Benzodiazepines Scrn Urine Cocaine Screen U Marijuana (THC) Screen 08/20/22 08/20/22 08/20/22 01:07 06:47 06:47 Corrected WBC 8.9 Uncorrected WBC Count 8.9 RBC 3.38 L Hgb 10.5 L Hct 31.0 L MCV 91.8 MCH 31.1 MCHC 33.9 RDW 14.0 Plt Count 293 MPV 6.8 Neut % (Auto) 68.9 Lymph % (Auto) 22.6 Mills % (Auto) 6.9 Eos % (Auto) 1.1 Baso % (Auto) 0.5 Nucleat RBC Rel Count 0.2 Neut # (Auto) 6.2 Lymph # (Auto) 2.0 Mills # (Auto) 0.6 Eos # (Auto) 0.1 Baso # (Auto) 0.0 Monocyte Dist Width ESR PT INR APTT PHA Creatinine Clear 106.20 Sodium 141 Potassium 3.4 L Chloride 107 Carbon Dioxide 26.5 Anion Gap 10.9 BUN 12 Creatinine 0.81 Est GFR (CKD-EPI) > 60.0 Glucose 198 H POC Glucose POC Glucose Comment Estimat Average Glucose Hemoglobin A1c Calcium 8.6 Phosphorus Magnesium Total Bilirubin AST ALT Alkaline Phosphatase Troponin I High Sens C-Reactive Prot, Quant Total Protein Albumin Globulin Albumin/Globulin Ratio 25-OH Vitamin D Total < 7.0 L Urine Color Urine Appearance Urine pH Ur Specific [place] Urine Protein Urine Glucose (UA) Urine Ketones Urine Occult Blood Urine Nitrite Urine Bilirubin Urine Urobilinogen Ur Leukocyte Esterase Urine RBC Urine WBC Ur Squamous Epith Cells Urine Bacteria Hyaline Casts Urine Opiates Screen Negative Ur Barbiturates Screen Negative Ur Phencyclidine Scrn Negative Ur Amphetamines Screen Negative U Benzodiazepines Scrn Negative Urine Cocaine Screen Negative U Marijuana (THC) Screen Negative 08/20/22 08/20/22 08/20/22 06:47 06:47 06:48 Corrected WBC Uncorrected WBC Count RBC Hgb Hct MCV MCH MCHC RDW Plt Count MPV Neut % (Auto) Lymph % (Auto) Mills % (Auto) Eos % (Auto) Baso % (Auto) Nucleat RBC Rel Count Neut # (Auto) Lymph # (Auto) Mills # (Auto) Eos # (Auto) Baso # (Auto) Monocyte Dist Width ESR PT INR APTT PHA Creatinine Clear Sodium Potassium Chloride Carbon Dioxide Anion Gap BUN Creatinine Est GFR (CKD-EPI) Glucose POC Glucose 241 POC Glucose Comment Estimat Average Glucose 220 Hemoglobin A1c 9.3 H Calcium Phosphorus 3.1 L Magnesium Total Bilirubin AST ALT Alkaline Phosphatase Troponin I High Sens C-Reactive Prot, Quant Total Protein Albumin Globulin Albumin/Globulin Ratio 25-OH Vitamin D Total Urine Color Urine Appearance Urine pH Ur Specific [place] Urine Protein Urine Glucose (UA) Urine Ketones Urine Occult Blood Urine Nitrite Urine Bilirubin Urine Urobilinogen Ur Leukocyte Esterase Urine RBC Urine WBC Ur Squamous Epith Cells Urine Bacteria Hyaline Casts Urine Opiates Screen Ur Barbiturates Screen Ur Phencyclidine Scrn Ur Amphetamines Screen U Benzodiazepines Scrn Urine Cocaine Screen U Marijuana (THC) Screen 08/20/22 08/20/22 07:30 09:53 Corrected WBC Uncorrected WBC Count RBC Hgb Hct MCV MCH MCHC RDW Plt Count MPV Neut % (Auto) Lymph % (Auto) Mills % (Auto) Eos % (Auto) Baso % (Auto) Nucleat RBC Rel Count Neut # (Auto) Lymph # (Auto) Mills # (Auto) Eos # (Auto) Baso # (Auto) Monocyte Dist Width ESR PT INR APTT PHA Creatinine Clear Sodium Potassium Chloride Carbon Dioxide Anion Gap BUN Creatinine Est GFR (CKD-EPI) Glucose POC Glucose 230 414 H* POC Glucose Comment Glu2: cleaned meter Cleaned meter Estimat Average Glucose Hemoglobin A1c Calcium Phosphorus Magnesium Total Bilirubin AST ALT Alkaline Phosphatase Troponin I High Sens C-Reactive Prot, Quant Total Protein Albumin Globulin Albumin/Globulin Ratio 25-OH Vitamin D Total Urine Color Urine Appearance Urine pH Ur Specific [place] Urine Protein Urine Glucose (UA) Urine Ketones Urine Occult Blood Urine Nitrite Urine Bilirubin Urine Urobilinogen Ur Leukocyte Esterase Urine RBC Urine WBC Ur Squamous Epith Cells Urine Bacteria Hyaline Casts Urine Opiates Screen Ur Barbiturates Screen Ur Phencyclidine Scrn Ur Amphetamines Screen U Benzodiazepines Scrn Urine Cocaine Screen U Marijuana (THC) Screen Imaging and Cardiology Status: report viewed by me Results Comments: Xray: ? LEFT FOOT? - 3 views ? COMPARISON: None ? AP, lateral and oblique views were obtained.? There is no evidence of fracture or dislocation.? No obvious bony destruction is seen.? There is a plate along the distal fibular shaft.? Mild distal dorsal soft tissue swelling is seen. ? IMPRESSION:? ? NO ACUTE PLAIN FILM FINDINGS. A&P - Infectious Disease (1) Toe infection: Status: Acute Plan Under impressive appearance of left hallux. Though the skin is missing this wound appears superficial. Plain x-ray without findings of osteomyelitis. Markers of inflammation minimally elevated. Apparent streaking on admission which is resolved today. On IV Unasyn. Podiatry was consulted. Probably wouldbenefit from appropriate wound care, better compliance on management of her sugars and short course of oral antibiotic. Documented By: Lawrence Kim MD 08/20/22 1020 Signed By: <Electronically signed by MD Lawrence Kim> 08/20/22 1027 [facility] Work Phone: [phone]) 554-207303-29-2023 Progress note Author Jeana Martini [facility] August 20, 2022 9:48am Note Date/Time August 20, 2022 9:4 8am [facility] [address] [place] [address] Hospitalist Progress Note Signed Patient: Addie Jean Baptiste MR#: [id number] : 1975 Acct:[id number] Age/Sex: 47 / F Adm Date: 3 Loc: Room: [address] [place] [address] Type: ADM INOo Attending Dr: Jeana Martini MD Copies to: ~ Date of Service: 08/20/2022 Subjective Subjective Narrative: Patient continues to have pain and discomfort in the great toe. No chest pain or palpitation. No fever or chills. No cough or congestion. No headaches, loss of conscious or seizure Exam Physical Exam Vital Signs: Temp Pulse Resp BP Pulse Ox O2 Del Method 97.9 F 70 16 176/105 H 100 Room Air 08/20/22 03:36 08/20/22 03:36 08/20/22 03:36 08/20/22 03:36 08/20/22 03:36 08/20/22 04:26 Narrative: [pt is awake and alert. oriented to place, time and person, morbidly obese HEENT: [place] conjunctiva and NL buccal mucosa Neck: Supple, no tenderness Endocrine: No Thyromegaly. Vascular: No JVD or carotid bruit. Lymphatic: No cervical lymphadenopathy. Chest: CTA no DTP. Heart RRR, no extra sound or murmur. Abd: Soft, no tenderness, no rebound and no rigidity. Increase abd girth therefore clinically I could not exclude the possibility of intra abd mass or organomegaly. LE: No cyanosis or clubbing, no varices or edema. Erythema, induration and tenderness involving the left great toe. Stage II ulceration involving the tip of the great toe circumferentially. Faint dorsalis pedis pulse Neuro: A A O. Nl speech, comprehension and attention. Nl and symetrical motor and tone examination through out. []] Objective Lab Results 08/20/22 06:47 08/20/22 06:47 Meds Allergies and Active Meds Allergies adhesive tape Allergy (Verified 08/19/22 21:48) Hives codeine Allergy (Verified 08/19/22 21:48) Vomiting fentanyl Allergy (Verified 08/19/22 21:48) Hives ibuprofen Allergy (Verified 08/19/22 21:48) Unknown Reaction Iodinated Contrast Media Allergy (Verified 08/19/22 21:48) Unknown Reaction ketorolac [From Toradol] Allergy (Verified 08/19/22 21:48) Vomiting latex Allergy (Verified 08/19/22 21:48) Hives propoxyphene [From Darvocet-N] Allergy (Verified 08/19/22 21:48) Vomiting tramadol Allergy (Verified 08/19/22 21:48) Vomiting vancomycin Allergy (Verified 08/19/22 21:48) Unknown Reaction linezolid [From Zyvox] Adverse Reaction (Verified 08/19/22 21:48) Vomiting Active Meds: Active Medications Generic Name Dose Route Start Last Admin Trade Name Freq PRN Reason Stop Dose Admin Acetaminophen 650 mg 08/20/22 03:41 Acetaminophen 325 Mg Tablet PO 08/20/23 03:40 Q4H PRN Pain Scale 1 - 3 or fever Amlodipine Besylate 5 mg 08/20/22 09:40 Amlodipine 5 Mg Tablet PO 08/20/23 09:39 DAILY SAMEER Clonidine HCl 0.1 mg 08/20/22 03:41 Clonidine 0.1 Mg Tablet PO 08/20/23 03:40 Q4H PRN Hypertension Dextrose 0 gm 08/20/22 03:41 Dextrose 50% In Water 25 Gm/50 Ml Syringe IV-PUSH 08/20/23 03:40 PRN PRN Hypoglycemia Enoxaparin Sodium 40 mg 08/20/22 10:00 08/20/22 09:29 Enoxaparin 40 Mg/0.4 Ml Syringe SUBCUT 08/20/23 09:59 40 mg DAILY@1000 SAMEER Administration Ergocalciferol 1,250 mcg 08/20/22 09:45 Ergocalciferol 1,250 Mcg (50,000 Units) Capsule PO 08/20/23 09:44 Q7D SAMEER Furosemide 20 mg 08/20/22 08:00 08/20/22 09:26 Furosemide 20 Mg Tablet PO 08/20/23 07:59 20 mg DAILY.8A SAMEER Administration Glucose 0 gm 08/20/22 03:41 Dextrose 40% Gel 15 Gm Tube PO 08/20/23 03:40 PRN PRN Hypoglycemia Ampicillin Sodium/Sulbactam Sodium 3 gm in 100 mls @ 200 mls/hr 08/20/22 08:30 08/20/22 09:27 Unasyn IV 200 mls/hr Q6H SAMEER Administration Levetiracetam 750 mg 08/20/22 09:00 08/20/22 08:24 Levetiracetam 250 Mg Tablet PO 08/20/23 08:59 750 mg BID SAMEER Administration Levothyroxine Sodium 75 mcg 08/20/22 06:30 08/20/22 06:15 Levothyroxine 75 Mcg Tablet PO 08/20/23 06:29 75 mcg DAILY@0630 SAMEER Administration Lisinopril 40 mg 08/20/22 09:00 08/20/22 08:25 Lisinopril 40 Mg Tablet PO 08/20/23 08:59 40 mg DAILY SAMEER Administration Metformin HCl 1,000 mg 08/20/22 08:00 08/20/22 08:25 Metformin 500 Mg Tablet PO 08/20/23 07:59 1,000 mg BID.WITH.MEALS SAMEER Administration Pantoprazole Sodium 40 mg 08/21/22 09:00 Pantoprazole 40 Mg Tablet.Dr PO 08/21/23 08:59 DAILY SAMEER Pregabalin 150 mg 08/20/22 03:45 08/20/22 04:09 Pregabalin 150 Mg Capsule PO 02/16/23 03:44 150 mg HS SAMEER Administration Quetiapine Fumarate 800 mg 08/20/22 04:00 08/20/22 04:09 Quetiapine Fumarate 200 Mg Tablet PO 08/20/23 03:59 800 mg HS SAMEER Administration Saccharomyces Boulardii 250 mg 08/20/22 08:00 08/20/22 08:26 Saccharomyces Boulardii 250 Mg Capsule PO 08/20/23 07:59 250 mg BID.WITH.MEALS SAMEER Administration Sodium Chloride 0 ml 08/19/22 21:47 Sodium Chloride 0.9 % 10 Ml Syringe IV-PUSH 08/19/23 21:46 PRN PRN Flush Tizanidine HCl 4 mg 08/20/22 03:44 08/20/22 08:50 Tizanidine 4 Mg Tablet PO 08/20/23 03:43 4 mg TID PRN Administration Muscle Spasm Tramadol HCl 50 mg 08/20/22 09:05 Tramadol 50 Mg Tablet PO 02/16/23 09:04 Q6H PRN Pain Scale 6 - 10 A&P - Hospitalist Assessment/Plan (1) Toe infection: (2) Diabetes: (3) Nicotine dependence: (4) Hypertension: (5) Hypomagnesemia: (6) Diabetic foot infection: Plan Recurrent great toe infection associated with distal ulceration. Could not exclude the possibility of osteomyelitis I requested the blood culture Continue antibiotic. Pending infectious disease and podiatry consultation and recommendation I requested arterial study rule out significant arterial disease Diabetes. Sliding scale coverage. Counseling about diabetes and diet Hypertension, poor control. Resume home lisinopril 40 mg daily. I added amlodipine daily DVT prophylaxis Lovenox subcu injection. Documented By: Jeana Martini MD 08/20/22945 Signed By: <Electronically signed by Jeana Martini MD> 08/20/2248 [facility] Work Phone: [phone]) [phone] History and physical note Author Ezekiel Mathew [facility] August 20, 2022 3:56am Note Date/Time August 20, 2022 3:5 6am [facility] [address] [place], [place] [id number] Hospitalist H&P Signed Patient: Addie Jean Baptiste MR#: [id number] : 1975 Acct:[id number] Age/Sex: 47 / F Adm Date: 3 Loc: Room: [address] [place] [address] Type: ADM INOo Attending Dr: Ezekiel Mathew DO Copies to: Laurent Mathew, ~ HPI DATE OF EXAMINATION: 08/20/22 CHIEF COMPLAINT: left great toe infection HISTORY OF PRESENT ILLNESS: This is a 47-year-old insulin requiring diabetic who came to the emergency room today because of infection and pain in her left great toe. She told the ER thatit been present for 1 month. She told the ER that she was cleaning it with Hibiclens. It seems like her primary care provider urged her to come to the emergency room. Earlier in the month, on July 31, she did fill prescriptions for Bactrim and Keflex. When I asked her about this she thought that it was a medicine for my cold. And then there is a prescription for doxycycline filledjust a day ago on August 19. The patient says that she follows with podiatry with Dr. Box. In the emergency room, given her allergies to vancomycin and Zyvox she was treated with IV Unasyn. Given her allergies to codeine, Toradol, fentanyl, tramadol, Motrin, and Darvocet they did offer her Tylenol. Her potassium was a little bit low at 3.3 in the ER did replace that her magnesium was low at 1.2 inthe ER did replace that. Markers of inflammation are mildly elevated with an ESR of 847 and a CRP mildly up at 1.9. When I asked the patient if she had been doing anything to treat her toe she told me she had not been doing anything. She was getting better information to the ER doctor when she described cleaning it with Hibiclens. She did notice redness and began to streak up her foot and count up into the lower part of her ankle and calf. Per her description there is not been any purulent drainage. Review of Systems Review of Systems Review of systems: 10 systems are reviewed and are negative except as mentioned elsewhere in the documentation. PMFSH Vaccinated for COVID-19?: Yes Medical History (Updated 08/20/22 @ 03:53 by Ezekiel Mathew DO) Anxiety Arthritis Bipolar disorder Cardiac defibrillator in place Depression Diabetes Migraine Port-A-Cath in place Pseudoseizure Restless leg syndrome Schizophrenia Sciatica Seizures TIA (transient ischemic attack) Vertigo Surgical History History of foot surgery left foot plate History of hysterectomy Hx of cholecystectomy Pacemaker Family History Father CAD (coronary artery disease) Diabetes HTN (hypertension) Mother Seizures Brother Blood disease Social History Smoking Status: Current every day smoker Tobacco Type: e-cigarettes Substance Use Type: None Social History Comments: infusaport Meds Medications and Allergies Allergies adhesive tape Allergy (Verified 08/19/22 21:48) Hives codeine Allergy (Verified 08/19/22 21:48) Vomiting fentanyl Allergy (Verified 08/19/22 21:48) Hives ibuprofen Allergy (Verified 08/19/22 21:48) Unknown Reaction Iodinated Contrast Media Allergy (Verified 08/19/22 21:48) Unknown Reaction ketorolac [From Toradol] Allergy (Verified 08/19/22 21:48) Vomiting latex Allergy (Verified 08/19/22 21:48) Hives propoxyphene [From Darvocet-N] Allergy (Verified 08/19/22 21:48) Vomiting tramadol Allergy (Verified 08/19/22 21:48) Vomiting vancomycin Allergy (Verified 08/19/22 21:48) Unknown Reaction linezolid [From Zyvox] Adverse Reaction (Verified 08/19/22 21:48) Vomiting Home Medications levothyroxine 75 mcg tablet 75 mcg PO DAILY 07/23/18 [History Confirmed 08/20/22] metformin 1,000 mg tablet 1,000 mg PO BID 07/23/18 [History Confirmed 08/20/22] omeprazole magnesium 10 mg oral suspension,delayed release (Prilosec) 40 mg PO DAILY 07/23/18 [History Confirmed 08/20/22] insulin lispro 100 unit/mL subcutaneous solution (Admelog U-100 Insulin lispro) See Rx Instructions .Route .COMPLEX 09/07/18 [History Confirmed 09/12/21] levetiracetam 500 mg tablet 750 mg PO BID 08/04/19 [History Confirmed 08/20/22] pregabalin 150 mg capsule 150 mg PO HS 08/04/19 [History Confirmed 08/20/22] quetiapine 400 mg tablet 800 mg PO HS 08/04/19 [History Confirmed 08/20/22] doxycycline hyclate 100 mg tablet 100 mg PO BID 08/20/22 [History Confirmed 08/20/22] lisinopril 40 mg tablet 40 mg PO DAILY 08/20/22 [History Confirmed 08/20/22] promethazine 25 mg tablet mg 08/20/22 [History] tizanidine 4 mg tablet 4 mg PO TID PRN Muscle Spasm 08/20/22 [History Confirmed 08/20/22] Exam Physical Exam Vital Signs: Temp Pulse Resp BP Pulse Ox O2 Del Method 97.9 F 70 16 176/105 H 100 Room Air 08/20/22 03:36 08/20/22 03:36 08/20/22 03:36 08/20/22 03:36 08/20/22 03:36 08/20/22 03:36 Narrative: GEN: Awake, alert, oriented x 3. Head: Normal Cephalic, Atraumatic. Eyes: Conjunctiva and sclera clear bilaterally. Nose: External nose and nares normal bilaterally. Mouth: Lips and tongue normal. Neck: No JVD. No thyromegaly. No lymphadenopathy. Lungs: Clear to auscultation bilaterally, no wheezing, no crackles. Heart: Regular rate and rhythm, no murmurs, rubs, or gallops. Abdomen: Soft, normal bowel sounds, no rigidity, guarding, or acute peritoneal signs. Extremities: No swelling or cords in the calves bilaterally, no edema in the ankles bilaterally. Left foot: The left great toe has redness in a circumferential area all around the tip of the toe. It is as if some of the skin is just been irritated like a blister. I do not see any focal areas of drainage. There is slight streaking going up into the forefoot and a little bit towards her ankle. Psychiatric: Calm. Conversant. Cooperative. Neuro: Awake, Alert, and Oriented x 3. No focal or lateralizing deficits. Results Lab Results Labs: Laboratory Last Values Corrected WBC 8.5 X10E3/uL (3.8-11.6) 08/20/22 00:19 Uncorrected WBC Count 8.5 x10E3/uL (3.8-11.6) 08/20/22 00:19 RBC 3.77 X10E6/uL (3.60-5.00) 08/20/22 00:19 Hgb 11.6 g/dL (11.8-15.4) L 08/20/22 00:19 Hct 34.4 % (34.0-46.4) 08/20/22 00:19 MCV 91.2 fl (80-100) 08/20/22 00:19 MCH 30.8 pg (24.7-34.3) 08/20/22 00:19 MCHC 33.8 g/dL (32.0-35.0) 08/20/22 00:19 RDW 14.5 % (11.9-15.3) 08/20/22 00:19 Plt Count 326 x10E3/uL (150-450) 08/20/22 00:19 MPV 6.9 fl (6.3-10.7) 08/20/22 00:19 Neut % (Auto) 64.7 % (.) 08/20/22 00:19 Lymph % (Auto) 27.3 % (.) 08/20/22 00:19 Mills % (Auto) 6.0 % (.) 08/20/22 00:19 Eos % (Auto) 1.3 % (.) 08/20/22 00:19 Baso % (Auto) 0.7 % (.) 08/20/22 00:19 Nucleat RBC Rel Count 0.0 /100 WBC (0-0.5) 08/20/22 00:19 Neut # (Auto) 5.5 x10E3/uL (1.8-7.7) 08/20/22 00:19 Lymph # (Auto) 2.3 x10E3/uL (1.00-4.8) 08/20/22 00:19 Mills # (Auto) 0.5 x10E3/uL (0.0-0.8) 08/20/22 00:19 Eos # (Auto) 0.1 x10E3/uL (0.0-0.45) 08/20/22 00:19 Baso # (Auto) 0.1 x10E3/uL (0.0-0.2) 08/20/22 00:19 Monocyte Dist Width 20.72 % (0.00-20.00) H 08/20/22 00:19 ESR 47 mm/hr (0-19) H 08/20/22 00:19 PT 12.2 Seconds (9.0-12.9) 08/20/22 00:19 INR 1.1 08/20/22 00:19 APTT 62.3 Seconds (25.1-36.5) H 08/20/22 00:19 PHA Creatinine Clear 91.29 08/20/22 00:19 Sodium 141 mmol/L (136-145) 08/20/22 00:19 Potassium 3.3 mmol/L (3.5-5.1) L 08/20/22 00:19 Chloride 105 mmol/L (98-107) 08/20/22 00:19 Carbon Dioxide 28.0 mmol/L (21.0-31.0) 08/20/22 00:19 Anion Gap 11.3 mEq/L (6.0-15.0) 08/20/22 00:19 BUN 15 mg/dL (7-25) 08/20/22 00:19 Creatinine 0.93 mg/dL (0.60-1.20) 08/20/22 00:19 Est GFR (CKD-EPI) > 60.0 08/20/22 00:19 Glucose 234 mg/dL (70-100) H 08/20/22 00:19 POC Glucose 226 mg/dl 08/20/22 01:00 Calcium 9.2 mg/dL (8.6-10.3) 08/20/22 00:19 Magnesium 1.2 mg/dL (1.9-2.7) L 08/20/22 00:19 Total Bilirubin 0.4 mg/dl (0.3-1.0) 08/20/22 00:19 AST 9 U/L (13-39) L 08/20/22 00:19 ALT 7 U/L (7-52) 08/20/22 00:19 Alkaline Phosphatase 82 U/L (34-104) 08/20/22 00:19 Troponin I High Sens 8.2 pg/mL (0.0-15.0) 08/20/22 00:19 C-Reactive Prot, Quant 1.9 mg/dL (0.0-0.5) H 08/20/22 00:19 Total Protein 6.4 gm/dL (6.4-8.9) 08/20/22 00:19 Albumin 3.6 gm/dL (3.5-5.7) 08/20/22 00:19 Globulin 2.8 gm/dL 08/20/22 00:19 Albumin/Globulin Ratio 1.3 08/20/22 00:19 Urine Color Yellow (Yellow) 08/20/22 01:07 Urine Appearance Clear (Clear) 08/20/22 01:07 Urine pH 6.5 (5.0-9.0) 08/20/22 01:07 Ur Specific [place] 1.017 (1.001-1.030) 08/20/22 01:07 Urine Protein 100 mg/dL (Negative) H 08/20/22 01:07 Urine Glucose (UA) >=1000 mg/dL (Normal) H 08/20/22 01:07 Urine Ketones Negative (Negative) 08/20/22 01:07 Urine Occult Blood Trace (Negative) H 08/20/22 01:07 Urine Nitrite Negative (Negative) 08/20/22 01:07 Urine Bilirubin Negative (Negative) 08/20/22 01:07 Urine Urobilinogen Normal mg/dL (Normal) 08/20/22 01:07 Ur Leukocyte Esterase Negative (Negative) 08/20/22 01:07 Urine RBC 5-9 /HPF (0-4) H 08/20/22 01:07 Urine WBC 10-19 /HPF (0-4) H 08/20/22 01:07 Ur Squamous Epith Cells 3-4 /HPF (0-2) H 08/20/22 01:07 Urine Bacteria 1+ (None Seen) H 08/20/22 01:07 Hyaline Casts 0-8 /LPF (0-8) 08/20/22 01:07 Urine Opiates Screen Negative (Negative) 08/20/22 01:07 Ur Barbiturates Screen Negative (Negative) 08/20/22 01:07 Ur Phencyclidine Scrn Negative (Negative) 08/20/22 01:07 Ur Amphetamines Screen Negative (Negative) 08/20/22 01:07 U Benzodiazepines Scrn Negative (Negative) 08/20/22 01:07 Urine Cocaine Screen Negative (Negative) 08/20/22 01:07 U Marijuana (THC) Screen Negative (Negative) 08/20/22 01:07 A&P - Hospitalist Assessment/Plan (1) Toe infection: (2) Diabetes: (3) Nicotine dependence: (4) Hypertension: (5) Hypomagnesemia: (6) Diabetic foot infection: Plan Assessment and plan: This is a 47-year-old woman who presented emergency room with left great toe infection. She does have insulin requiring diabetes and uses an Omnipod. Outpatient antibiotics including Bactrim and Keflex have been attempted without success. She states that she does have a nitrate operator with Dr. Box. Since his partner Dr. Castillo comes to the hospital I will consult him. I think that the Unasyn started by the emergency room is reasonable. She is okay to continue to use her Omnipod to manage her diabetes. She did have significantly elevated blood pressures in the emergency room, such as 176/105. I do not think that sheneeds additional IV fluids. I will have her get a dose of Lasix and spironolactone in the morning to remove excess volume. The ER did give her an early dose of her home medication of lisinopril 40 mg daily. Looking back at our medical records from the year 2019 she was on Toprol 50 mg daily. I do not see that in our list now but she may need a beta-kathia like that dosing. Observation status is being used at this time: and is we are awaiting input frompodiatry about if she will need additional treatment. Documented By: Ezekiel Mathew DO [id number] Signed By: <Electronically signed by Ezekiel Mathew DO> 08/20/22 0356 [facility] Work Phone: [phone] Hospital Discharge instructions Patient Education 08/19/2022 20:32:56 Wound Care, Adult Wound Care, Adult Taking care of your wound properly can help to prevent pain, infection, and scarring. It can also help your wound to heal more quickly. How to care for your wound Wound care Follow instructions from your health care provider about how to take care of your wound. Make sure you: ?Wash your hands with soap and water before you change the bandage (dressing). If soap and water are not available, use hand agile project manager. ?Change your dressing as told by your health care provider. ?Leave stitches (sutures), skin glue, or adhesive strips in place. These skin closures may need to stay in place for 2 weeks or longer. If adhesive strip edges start to loosen and curl up, you may trim the loose edges. Do not remove adhesive strips completely unless your health care provider tells you to do that. Check your wound area every day for signs of infection. Check for: ?Redness, swelling, or pain. ?Fluid or blood. ?Warmth. ?Pus or a bad smell. Ask your health care provider if you should clean the wound with mild soap and water. Doing this may include: ?Using a clean towel to pat the wound dry after cleaning it. Do not rub or scrub the wound. ?Applying a cream or ointment. Do this only as told by your health care provider. ?Covering the incision with a clean dressing. Ask your health care provider when you can leave the wound uncovered. Keep the dressing dry until your health care provider says it can be removed. Do not take baths, swim, use a hot tub, or do anything that would put the wound underwater until your health care provider approves. Ask your health care provider if you can take showers. You may only be allowed to take sponge baths. Medicines If you were prescribed an antibiotic medicine, cream, or ointment, take or use the antibiotic as told by your health care provider. Do not stop taking or using the antibiotic even if your condition improves. Take hwmh-tng-szatehf and prescription medicines only as told by your health care provider. If you were prescribed pain medicine, take it 30 or more minutes before you do any wound care or as told byyour health care provider. General instructions Return to your normal activities as told by your health care provider. Ask your health care provider what activities are safe. Do not scratch or pick at the wound. Do not use any products that contain nicotine or tobacco, such as cigarettes and e-cigarettes. These may delay wound healing. If you need help quitting, ask your health care provider. Keep all follow-up visits as told by your health care provider. This is important. Eat a diet that includes protein, vitamin A, vitamin C, and other nutrient-rich foods to help the wound heal. ?Foods rich in protein include meat, dairy, beans, nuts, and other sources. ?Foods rich in vitamin A include carrots and dark green, leafy vegetables. ?Foods rich in vitamin C include citrus, tomatoes, and other fruits and vegetables. ?Nutrient-rich foods have protein, carbohydrates, fat, vitamins, or minerals. Eat a variety of healthy foods including vegetables, fruits, and whole grains. Contact a health care provider if: You received a tetanus shot and you have swelling, severe pain, redness, or bleeding at the injection site. Your pain is not controlled with medicine. You have redness, swelling, or pain around the wound. You have fluid or blood coming from the wound. Your wound feels warm to the touch. You have pus or a bad smell coming from the wound. You have a fever or chills. You are nauseous or you vomit. You are dizzy. Get help right away if: You have a red streak going away from your wound. The edges of the wound open up and separate. Your wound is bleeding, and the bleeding does not stop with gentle pressure. You have a rash. You faint. You have trouble breathing. Summary Always wash your hands with soap and water before changing your bandage (dressing). To help with healing, eat foods that are rich in protein, vitamin A, vitamin C, and other nutrients. Check your wound every day for signs of infection. Contact your health care provider if you suspectthat your wound is infected. This information is not intended to replace advice given to you by your health care provider. Make sure you discuss any questions you have with your health care provider. Document Released: 02/17/2009 Document Revised: 08/29/2019 Document Reviewed: 11/25/2016 [employer] Patient Education 2020 [employer]. 08/19/2022 20:32:56 Type 2 Diabetes Mellitus, Self Care, Adult, Heli-sd-Vuhb Type 2 Diabetes Mellitus, Self Care, Adult When you have type 2 diabetes (type 2 diabetes mellitus), you must make sure your blood sugar (glucose) stays in a healthy range. You can do this with: Nutrition. Exercise. Lifestyle changes. Medicines or insulin, if needed. Support from your doctors and others. How to stay aware of blood sugar Check your blood sugar level every day, as often as told. Have your A1c (hemoglobin A1c) level checked two or more times a year. Have it checked more often if your doctor tells you to. Your doctor will set personal treatment goals for you. Generally, you should have these blood sugarlevels: Before meals (preprandial): 80 130 mg/dL (4.4 7.2 mmol/L). After meals (postprandial): below 180 mg/dL (10 mmol/L). A1c level: less than 7%. How to manage high and low blood sugar Signs of high blood sugar High blood sugar is called hyperglycemia. Know the signs of high blood sugar. Signs may include: Feeling: ?Thirsty. ?Hungry. ?Very tired. Needing to pee (urinate) more than usual. Blurry vision. Signs of low blood sugar Low blood sugar is called hypoglycemia. This is when blood sugar is at or below 70 mg/dL (3.9 mmol/L). Signs may include: Feeling: ?Hungry. ?Worried or nervous (anxious). ?Sweaty and clammy. ?Confused. ?Dizzy. ?Sleepy. ?Sick to your stomach (nauseous). Having: ?A fast heartbeat. ?A headache. ?A change in your vision. ?Jerky movements that you cannot control (seizure). ?Tingling or no feeling (numbness) around your mouth, lips, or tongue. Having trouble with: ?Moving (coordination). ?Sleeping. ?Passing out (fainting). ?Getting upset easily (irritability). Treating low blood sugar To treat low blood sugar, eat or drink something sugary right away. If you can think clearly and swallow safely, follow the 15:15 rule: Take 15 grams of a fast-acting carb (carbohydrate). Talk with your doctor about how much you shouldtake. Some fast-acting carbs are: ?Sugar tablets (glucose pills). Take 3 4 pills. ?6 8 pieces of hard candy. ?4 6 oz (120 150 mL) of fruit juice. ?4 6 oz (120 150 mL) of regular (not diet) soda. ?1 Tbsp (15 mL) honey or sugar. Check your blood sugar 15 minutes after you take the carb. If your blood sugar is still at or below 70 mg/dL (3.9 mmol/L), take 15 grams of a carb again. If your blood sugar does not go above 70 mg/dL (3.9 mmol/L) after 3 tries, get help right away. After your blood sugar goes back to normal, eat a meal or a snack within 1 hour. Treating very low blood sugar If your blood sugar is at or below 54 mg/dL (3 mmol/L), you have very low blood sugar (severe hypoglycemia). This is an emergency. Do not wait to see if the symptoms will go away. Get medical help right away. Call your local emergency services (911 in the [place] If you have very low blood sugar and you cannot eat or drink, you may need a glucagon shot (injection). A family member or friend should learn how to check your blood sugar and how to give you a glucagon shot. Ask your doctor if you need to have a glucagon shot kit at home. Follow these instructions at home: Medicine Take insulin and diabetes medicines as told. If your doctor says you should take more or less insulin and medicines, do this exactly as told. Do not run out of insulin or medicines. Having diabetes can raise your risk for other long-term conditions. These include heart disease andkidney disease. Your doctor may prescribe medicines to help you not have these problems. Food Make healthy food choices. These include: ?Chicken, fish, egg whites, and beans. ?Oats, whole wheat, bulgur, brown rice, quinoa, and millet. ?Fresh fruits and vegetables. ?Low-fat dairy products. ?Nuts, avocado, olive oil, and canola oil. Meet with a food safety manager (dietitian). He or she can help you make an eating plan that is right for you. Follow instructions from your doctor about what you cannot eat or drink. Drink enough fluid to keep your pee (urine) pale yellow. Keep track of carbs that you eat. Do this by reading food labels and learning food serving sizes. Follow your sick day plan when you cannot eat or drink normally. Make this plan with your doctor soit is ready to use. Activity Exercise 3 or more times a week. Do not go more than 2 days without exercising. Talk with your doctor before you start a new exercise. Your doctor may need to tell you to change: ?How much insulin or medicines you take. ?How much food you eat. Lifestyle Do not use any tobacco products. These include cigarettes, chewing tobacco, and e-cigarettes. If you need help quitting, ask your doctor. Ask your doctor how much alcohol is safe for you. Learn to deal with stress. If you need help with this, ask your doctor. Body care Stay up to date with your shots (immunizations). Have your eyes and feet checked by a doctor as often as told. Check your skin and feet every day. Check for cuts, bruises, redness, blisters, or sores. Hammond your teeth and gums two times a day. Floss one or more times a day. Go to the dentist one or more times every 6 months. Stay at a healthy weight. General instructions Take ngec-zyk-zcsebly and prescription medicines only as told by your doctor. Share your diabetes care plan with: ?Your work or school. ?People you live with. Carry a card or wear jewelry that says you have diabetes. Keep all follow-up visits as told by your doctor. This is important. Questions to ask your doctor Do I need to meet with a perinatal educator? Where can I find a support group for people with diabetes? Where to find more information To learn more about diabetes, visit: [place] [employer]: www.diabetes.org [place] [employer] Educators: www.diabeteseducator.org Summary When you have type 2 diabetes, you must make sure your blood sugar (glucose) stays in a healthy range. Check your blood sugar every day, as often as told. Having diabetes can raise your risk for other conditions. Your doctor may prescribe medicines to help you not have these problems. Keep all follow-up visits as told by your doctor. This is important. This information is not intended to replace advice given to you by your health care provider. Make sure you discuss any questions you have with your health care provider. Document Released: 09/01/2016 Document Revised: 11/01/2018 Document Reviewed: 06/13/2016 Elsevier Patient Education 2020 [employer] Follow Up Care 08/19/2022 17:03:41 With:Pool Heath Address: [address] [place] [address] [place] [address] Business (1) When:08/22/2022 20:16:55 [facility]03-28-2023 Evaluation + Plan note Diagnostic Tests Pending * Blood Culture Charcoal 08/19/22 * Blood Culture Charcoal 08/19/22 * UA With Cult Reflex 08/19/22 * Wound Culture 08/19/22 Future Scheduled Tests Laboratory* Fecal WBC Lactoferrin 10/30/21 * Enteric Panel by PCR 10/30/21 Radiology* NM Myocardial Spect Rest/Stress 1 Day 12/16/21 * Echo Transthoracic Complete 09/03/21 [facility]01-09-2023 Hospital Discharge instructions Patient Education 06/02/2022 20:35:11 Seizure, Adult, Xxzd-tl-Wnzb Seizure, Adult A seizure is a sudden burst of abnormal electrical activity in the brain. Seizures usually last from 30 seconds to 2 minutes. They can cause many different symptoms. Usually, seizures are not harmful unless they last a long time. What are the causes? Common causes of this condition include: Fever or infection. Conditions that affect the brain, such as: ?A brain abnormality that you were born with. ?A brain or head injury. ?Bleeding in the brain. ?A tumor. ?Stroke. ?Brain disorders such as autism or cerebral palsy. Low blood sugar. Conditions that are passed from parent to child (are inherited). Problems with substances, such as: ?Having a reaction to a drug or a medicine. ?Suddenly stopping the use of a substance (withdrawal). In some cases, the cause may not be known. A person who has repeated seizures over time without a clear cause has a condition called epilepsy. What increases the risk? You are more likely to get this condition if you have: A family history of epilepsy. Had a seizure in the past. A brain disorder. A history of head injury, lack of oxygen at , or strokes. What are the signs or symptoms? There are many types of seizures. The symptoms vary depending on the type of seizure you have. Examples of symptoms during a seizure include: Shaking (convulsions). Stiffness in the body. Passing out (losing consciousness). Head nodding. Staring. Not responding to sound or touch. Loss of bladder control and bowel control. Some people have symptoms right before and right after a seizure happens. Symptoms before a seizure may include: Fear. Worry (anxiety). Feeling like you may vomit (nauseous). Feeling like the room is spinning (vertigo). Feeling like you saw or heard something before (lauren jordan). Odd tastes or smells. Changes in how you see. You may see flashing lights or spots. Symptoms after a seizure happens can include: Confusion. Sleepiness. Headache. Weakness on one side of the body. How is this treated? Most seizures will stop on their own in under 5 minutes. In these cases, no treatment is needed. Seizures that last longer than 5 minutes will usually need treatment. Treatment can include: Medicines given through an IV tube. Avoiding things that are known to cause your seizures. These can include medicines that you take for another condition. Medicines to treat epilepsy. Surgery to stop the seizures. This may be needed if medicines do not help. Follow these instructions at home: Medicines Take ryoa-uyp-xnibgan and prescription medicines only as told by your doctor. Do not eat or drink anything that may keep your medicine from working, such as alcohol. Activity Do not do any activities that would be dangerous if you had another seizure, like driving or swimming. Wait until your doctor says it is safe for you to do them. If you live in the [place] ask your local DMV (department of [place]) when you can drive. Get plenty of rest. Teaching others Teach friends and family what to do when you have a seizure. They should: Lay you on the ground. Protect your head and body. Loosen any tight clothing around your neck. Turn you on your side. Not hold you down. Not put anything into your mouth. Know whether or not you need emergency care. Stay with you until you are better. General instructions Contact your doctor each time you have a seizure. Avoid anything that gives you seizures. Keep a seizure diary. Write down: ?What you think caused each seizure. ?What you remember about each seizure. Keep all follow-up visits as told by your doctor. This is important. Contact a doctor if: You have another seizure. You have seizures more often. There is any change in what happens during your seizures. You keep having seizures with treatment. You have symptoms of being sick or having an infection. Get help right away if: You have a seizure that: ?Lasts longer than 5 minutes. ?Is different than seizures you had before. ?Makes it harder to breathe. ?Happens after you hurt your head. You have any of these symptoms after a seizure: ?Not being able to speak. ?Not being able to use a part of your body. ?Confusion. ?A bad headache. You have two or more seizures in a row. You do not wake up right after a seizure. You get hurt during a seizure. These symptoms may be an emergency. Do not wait to see if the symptoms will go away. Get medical help right away. Call your local emergency services (911 in the [place] Do not drive yourself to the hospital. Summary Seizures usually last from 30 seconds to 2 minutes. Usually, they are not harmful unless they last a long time. Do not eat or drink anything that may keep your medicine from working, such as alcohol. Teach friends and family what to do when you have a seizure. Contact your doctor each time you have a seizure. This information is not intended to replace advice given to you by your health care provider. Make sure you discuss any questions you have with your health care provider. Document Released: 10/27/2008 Document Revised: 07/29/2019 Document Reviewed: 07/29/2019 [employer] Patient Education 2020 [employer]. 06/02/2022 20:35:11 Abdominal Pain, Adult, Bsnm-hk-Qyno Abdominal Pain, Adult Many things can cause belly (abdominal) pain. Most times, belly pain is not dangerous. Many cases of belly pain can be watched and treated at home. Sometimes, though, belly pain is serious. Your doctor will try to find the cause of your belly pain. Follow these instructions at home: Medicines Take gxhw-yci-pjgmxpb and prescription medicines only as told by your doctor. Do not take medicines that help you poop (laxatives) unless told by your doctor. General instructions Watch your belly pain for any changes. Drink enough fluid to keep your pee (urine) pale yellow. Keep all follow-up visits as told by your doctor. This is important. Contact a doctor if: Your belly pain changes or gets worse. You are not hungry, or you lose weight without trying. You are having trouble pooping (constipated) or have watery poop (diarrhea) for more than 2 3 days. You have pain when you pee or poop. Your belly pain wakes you up at night. Your pain gets worse with meals, after eating, or with certain foods. You are vomiting and cannot keep anything down. You have a fever. You have blood in your pee. Get help right away if: Your pain does not go away as soon as your doctor says it should. You cannot stop vomiting. Your pain is only in areas of your belly, such as the right side or the left lower part of the belly. You have bloody or black poop, or poop that looks like tar. You have very bad pain, cramping, or bloating in your belly. You have signs of not having enough fluid or water in your body (dehydration), such as: ?Dark pee, very little pee, or no pee. ?Cracked lips. ?Dry mouth. ?Sunken eyes. ?Sleepiness. ?Weakness. You have trouble breathing or chest pain. Summary Many cases of belly pain can be watched and treated at home. Watch your belly pain for any changes. Take xneq-hjx-aygceba and prescription medicines only as told by your doctor. Contact a doctor if your belly pain changes or gets worse. Get help right away if you have very bad pain, cramping, or bloating in your belly. This information is not intended to replace advice given to you by your health care provider. Make sure you discuss any questions you have with your health care provider. Document Released: 10/27/2008 Document Revised: 09/19/2019 Document Reviewed: 09/19/2019 [employer] Patient Education 2020 [employer]. Follow Up Care 06/02/2022 15:49:02 With:[facility] Address: [address] [place], [place] [id number] Business (1) When:06/05/2022 20:05:40 Comments:Take your medications as prescribed. Please follow-up with your primary care doctor in addition to your neurologist for further evaluation management. Please return to ED for any new or worsening symptoms. [facility]01-09-2023 Evaluation + Plan noteExtracted from: Title:ED Note Author:Bridgett Gillespie M.D. te:06/02/22 1. Recurrent seizures (G40.9 09: Epilepsy, unspecified, not intractable, without status epilepticus) 2. Abdominal pain (R10.9: Unspecified abdominal pain) 3. Hyperglycemia (R73.9: Hyperglycemia, unspecified) Orders: insulin lispro, 10 unit(s) = 0.1 mL, Injection-Insulin, SubCutaneous, Once, Stop date 06/02/22 17:35:00 EST, STAT, Start date 06/02/22 17:35:00 EST insulin lispro, 10 unit(s), Injection-Insulin, SubCutaneous, Once, Stop date 06/02/22 18:49:00 EST, STAT, Start date 06/02/22 18:49:00 EST, 06/02/22 18:49:00 EST insulin lispro, 10 unit(s) = 0.1 mL, Injection-Insulin, SubCutaneous, Once, Stop date 06/02/22 16:20:00 EST, STAT, Start date 06/02/22 16:20:00 EST morphine, 4 mg = 2 mL, Injection, IV Push, Once, Stop date 06/02/22 16:20:00 EST, STAT, Start date 06/02/22 16:20:00 EST, 06/02/22 16:20:00 EST ondansetron, 4 mg = 2 mL, Injection, IV Push, Once, Stop date 06/02/22 16:20:00 EST, STAT, Start date 06/02/22 16:20:00 EST, 06/02/22 16:20:00 EST Sodium Chloride 0.9% intravenous solution, 1,000 mL, Soln-IV, IV, Once, Stop date 06/02/22 16:20:00 EST, STAT, Start date 06/02/22 16:20:00 EST, mL/hr, Infuse over 61, minute(s) Automated Diff Basic Metabolic Panel Beta-hydroxybutyrate Capillary Glucose POC Capillary Glucose POC CBC w/ Auto Diff CT Abdomen/Pelvis w/o Contrast eGFR Hepatic Function Panel [facility] Lipase Level PT & PTT UA With Cult Reflex Addendum by Estrella Blackburn DO on June 02, 2022 20:31:24 EST Patient's blood sugar decreased to 278. Was given Bentyl for right-sided abdominal pain. She had a negative CT imaging. Patient is discharged home she given a prescription for Robaxin. Follow-up with her primary care doctor in the next 2 to 3 days. She is to return to the ED for any new or worsening symptoms. Diagnostic Tests Pending * Kera Lvl 06/02/22 Future Scheduled Tests Laboratory* Fecal WBC Lactoferrin 10/30/21 * HgbA1c 07/29/21 * Enteric Panel by PCR 10/30/21 * Thyroid Stimulating Hormone 07/29/21 Radiology* NM Myocardial Spect Rest/Stress 1 Day 12/16/21 * Echo Transthoracic Complete 09/03/21 [facility]12-22-2022 Hospital Discharge instructions Patient Education 05/15/2022 16:59:08 Paronychia, [id number] Paronychia Paronychia is an infection of the skin. It happens near a fingernail or toenail. It may cause pain and swelling around the nail. In some cases, a fluid-filled bump (abscess) can form near or under the nail. Usually, this condition is not serious, and it clears up with treatment. Follow these instructions at home: Wound care Keep the affected area clean. Soak the fingers or toes in warm water as told by your doctor. You may be told to do this for 20 minutes, 2 3 times a day. Keep the area dry when you are not soaking it. Do not try to drain a fluid-filled bump on your own. Follow instructions from your doctor about how to take care of the affected area. Make sure you: ?Wash your hands with soap and water before you change your bandage (dressing). If you cannot use soap and water, use hand agile project manager. ?Change your bandage as told by your doctor. If you had a fluid-filled bump and your doctor drained it, check the area every day for signs of infection. Check for: ?Redness, swelling, or pain. ?Fluid or blood. ?Warmth. ?Pus or a bad smell. Medicines Take [id number] and prescription medicines only as told by your doctor. If you were prescribed an antibiotic medicine, take it as told by your doctor. Do not stop taking it even if you start to feel better. General instructions Avoid touching any chemicals. Do not pick at the affected area. Prevention To prevent this condition from happening again: ?Wear rubber gloves when putting your hands in water for washing dishes or other tasks. ?Wear gloves if your hands might touch beverage inspection machine tender or chemicals. ?Avoid injuring your nails or fingertips. ?Do not bite your nails or tear hangnails. ?Do not cut your nails very short. ?Do not cut the skin at the base and sides of the nail (cuticles). ?Use clean nail clippers or scissors when trimming nails. Contact a doctor if: You feel worse. You do not get better. You have more fluid, blood, or pus coming from the affected area. Your finger or knuckle is swollen or is hard to move. Get help right away if you have: A fever or chills. Redness spreading from the affected area. Pain in a joint or muscle. Summary Paronychia is an infection of the skin. It happens near a fingernail or toenail. This condition may cause pain and swelling around the nail. Soak the fingers or toes in warm water as told by your doctor. Usually, this condition is not serious, and it clears up with treatment. This information is not intended to replace advice given to you by your health care provider. Make sure you discuss any questions you have with your health care provider. Document Released: 04/29/2010 Document Revised: 05/28/2018 Document Reviewed: 05/24/2018 [employer]. Follow Up Care 05/15/2022 16:12:54 With:[facility] Address: [address] [place], [place] [id number] Business (1) When:Within 3 Day(s) [facility]12-22-2022 Evaluation + Plan noteExtracted from: Title:ED Note Author:Heather Ortega PA-C [place] e:05/15/22 1. Paronychia, finger (L03.0 19: Cellulitis of unspecified finger) Orders: sulfamethoxazole-trimethoprim, 1 tab(s), Oral, BID for 7 day(s), 14 tab(s), Refill(s) 0, [facility], 157, cm, 05/15/22 16:23:00 EST, Height/Length Dosing, 113, kg, 05/15/22 16:23:00 EST, Weight Dosing 47-year-old female presents to the ED with complaints of pain, redness, swelling of her left index finger starting yesterday. In the ED patient is afebrile vital signs stable, no acute distress. Patient has full passive range of motion and active range of motion of the digit, no difficulty with flexing or extending. Attempted to drain paronychia in the ED but was only able to express blood, no purulence. Due to patient's reported history of MRSA will treat with Bactrim. Patient instructed on supportive care such as warm soaks. She is to follow with her PCP and is to return to the ED with any new or worsening symptoms. Patient voices understanding is agreeable to plan. Future Scheduled Tests Laboratory* Fecal WBC Lactoferrin 10/30/21 * HgbA1c 07/29/21 * Enteric Panel by PCR 10/30/21 * Thyroid Stimulating Hormone 07/29/21 Radiology* NM Myocardial Spect Rest/Stress 1 Day 12/16/21 * Echo Transthoracic Complete 09/03/21 [facility]11-16-2022 Evaluation + Plan noteExtracted from: Title:Discharge Note Author:Kinza STEVENS, Pepe Lozada Date:04/09/22 Discharge To, Anticipated II - Home independently Discharge Diet(s): Calorie Controlled- 1800 Calorie Diet (04/07/22 07:24:00) Prescriptions Albuterol (Eqv-ProAir HFA) 90 mcg/inh inhalation aerosol, 2 puff(s), Inhalation, q4hr, PRN, 1 refills, Not taking aspirin 81 mg Chew Tab, 81 mg= 1 tab(s), Chewed, Daily, 3 refills azithromycin 250 mg Tab, 500 mg= 2 tab(s), Oral, Daily cholecalciferol 1000 intl units (25 mcg) oral tablet, 25 mcg= 1 tab(s), Oral, Daily DuoNeb 2.5 mg-0.5 mg/3 mL Soln-Inh, 3 mL, Inhalation, QID, PRN ergocalciferol 50,000 intl units Cap, 85114 International_Unit= 1 cap(s), Oral, q7day Keppra 250 mg Tab, 250 mg= 1 tab(s), Oral, BID Lyrica 75 mg Cap, 75 mg= 1 cap(s), Oral, BID Mucinex 600 mg Tab-ER, 1200 mg= 2 tab(s), Oral, BID quetiapine 400 mg oral tablet, 800 mg= 2 tab(s), Oral, Bedtime Zanaflex 4 mg Tab, 12 mg= 3 tab(s), Oral, Once a day (at bedtime), 1 refills Zofran 4 mg Tab, 4 mg= 1 tab(s), Oral, q8hr, PRN Home atorvastatin 80 mg Tab, 80 mg= 1 tab(s), Oral, Daily busPIRone 30 mg oral tablet, 30 mg= 1 tab(s), Oral, BID insulin lispro 100 units/mL injectable solution, 5 unit(s), SubCutaneous, TIDAC levETIRAcetam 500 mg oral tablet, dispersible, 500 mg= 1 tab(s), BID metformin 1000 mg Tab, 1000 mg= 1 tab(s), Oral, BID pantoprazole 40 mg Oral EC Tab, 40 mg= 1 tab(s), Oral, Daily Synthroid 75 mcg (0.075 mg) Tab, 75 mcg= 1 tab(s), Oral, Daily venlafaxine 150 mg Cap-ER, 150 mg= 1 cap(s), Oral, Daily With When Contact Information Anupam STEVENS, SAMUEL Jaimes Within 2 to 4 weeks [address] [place] [address]- Additional Instructions: Radha Dias DO Within 2 to 4 days [address], [address], [address] [place] [address]- Additional Instructions: Diabetes Mellitus and Nutrition, Adult Diabetes Mellitus and Foot Care Diabetes Mellitus and Exercise Extracted from: Title:Discharge Note Author:Kinza STEVENS, Pepe S Date:04/08/22 Discharge To, Anticipated II - Home independently Discharge Diet(s): Calorie Controlled- 1800 Calorie Diet (04/07/22 07:24:00) Prescriptions Albuterol (Eqv-ProAir HFA) 90 mcg/inh inhalation aerosol, 2 puff(s), Inhalation, q4hr, PRN, 1 refills, Not taking aspirin 81 mg Chew Tab, 81 mg= 1 tab(s), Chewed, Daily, 3 refills azithromycin 250 mg Tab, 500 mg= 2 tab(s), Oral, Daily cholecalciferol 1000 intl units (25 mcg) oral tablet, 25 mcg= 1 tab(s), Oral, Daily ergocalciferol 50,000 intl units Cap, 62491 International_Unit= 1 cap(s), Oral, q7day insulin glargine 100 units/mL subcutaneous solution, 10 unit(s), SubCutaneous, Daily Keppra 250 mg Tab, 250 mg= 1 tab(s), Oral, BID Mucinex 600 mg Tab-ER, 1200 mg= 2 tab(s), Oral, BID quetiapine 400 mg oral tablet, 800 mg= 2 tab(s), Oral, Bedtime Zanaflex 4 mg Tab, 12 mg= 3 tab(s), Oral, Once a day (at bedtime), 1 refills Zofran 4 mg Tab, 4 mg= 1 tab(s), Oral, q8hr, PRN Home atorvastatin 80 mg Tab, 80 mg= 1 tab(s), Oral, Daily busPIRone 30 mg oral tablet, 30 mg= 1 tab(s), Oral, BID insulin lispro 100 units/mL injectable solution, 5 unit(s), SubCutaneous, TIDAC levETIRAcetam 500 mg oral tablet, dispersible, 500 mg= 1 tab(s), BID Lyrica 300 mg Cap, 300 mg= 1 cap(s), Oral, Bedtime metformin 1000 mg Tab, 1000 mg= 1 tab(s), Oral, BID pantoprazole 40 mg Oral EC Tab, 40 mg= 1 tab(s), Oral, Daily Synthroid 75 mcg (0.075 mg) Tab, 75 mcg= 1 tab(s), Oral, Daily venlafaxine 150 mg Cap-ER, 150 mg= 1 cap(s), Oral, Daily With When Contact Information Polo Bo MD, NEU Within 2 to 4 weeks [address] [place] [address]- Additional Instructions: Radha Dias DO Within 2 to 4 days [address] [place] [address]- Additional Instructions: Diabetes Mellitus and Nutrition, Adult Diabetes Mellitus and Foot Care Diabetes Mellitus and Exercise Addendum by Kinza STEVENS, [facility] S on April 08, 2022 13:12:55 EST Add to physical exam. Patient does not lift right lower extremity against gravity. Patient does not put in any effort as well so not sure how much it is psychogenic. Strength normal in other extremities. Patient mention she is unable to feel anything in right lower extremity. However I have seen patient moving right lower extremity. Patient walks with FWW Addendum by Mary Echols MD on April 08, 2022 14:09:08 EST For bronchitis patient needs frequent treatments of DuoNeb and nebulizer Extracted from: Title:APSO Note-neurology Author:Maico Ballard RN Date:04/08/22 Reason for consult: Concern for seizure ASSESSMENT: 1. Seizure disorder. 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 Multiple previous EEGs with epileptiform discharges including May 2019 and August 2018. She says her typical seizure as of lately is a brief staring spell followed by a headache. One of those happened in the emergency department. 2. Right lower extremity numbness/paresthesias and weakness, persistent the last several weeks. At time of symptom onset she was evaluated at [facility] and had a stroke work-up, results of which are unclear. CT head here does not show any obvious areas of subacute ischemia. Could also consider lumbar radiculopathy as a potential explanation given her known lumbar spondylosis. Nondermatomal sensory loss and nonmyotomal pattern of weakness. Very questionable effort. 3. Chronic diabetic polyneuropathy. PLAN: 1. Obtaining hospital records from [facility] to ensure they looked into stroke as a possible cause for the right lower extremity weakness. 2. Continue the Keppra at 750 mg twice daily 3. She no longer takes the Depakote because it made her feel sick (GI) 4. She takes pregabalin 150 mg nightly. We changed this to 75 mg twice daily to use it as a antiepilepsy adjunct. 5. Has a pacemaker, not allowed to have MRI at this institution 6. History of reported bipolar disorder but she says she takes 800 mg of Seroquel for sleep and should consider dose reduction but I defer to her mental health care provider 7. As an outpatient, consider repeat EMG testing of lower extremities as well as lumbar spine MR imaging. She follows with Dr. Low. 8. EEG not needed here at this time. No concern for ongoing or subclinical seizure activity. Multiple previous abnormal EEGs that were abnormal. An additional EEG will not private branch exchange operator. 1. DKA (diabetic ketoacidosis) (E11.10: Type 2 diabetes mellitus with ketoacidosis without coma) 2. Acute exacerbation of chronic obstructive pulmonary disease (COPD) (J44.1: Chronic obstructive pulmonary disease with (acute) exacerbation) 3. Acute encephalopathy (G93.40: Encephalopathy, unspecified) 4. History of seizures (Z87.898: Personal history of other specified conditions) 5. History of CVA in adulthood (Z86.73: Personal history of transient ischemic attack (TIA), and cerebral infarction without residual deficits) 6. Schizophrenia (F20.9: Schizophrenia, unspecified) 7. Bipolar disorder (F31.9: Bipolar disorder, unspecified) 8. History of cardiac arrest (Z86.74: Personal history of sudden cardiac arrest) 9. History of CHF (congestive heart failure) (Z86.79: Personal history of other diseases of the circulatory system) 10. Obstructive sleep apnea (G47.33: Obstructive sleep apnea (adult) (pediatric)) 11. Fibromyalgia (M79.7: Fibromyalgia) 12. Hypertension (I10: Essential (primary) hypertension) 13. GERD (gastroesophageal reflux disease) (K21.9: Gastro-esophageal reflux disease without esophagitis) 14. Morbid obesity (E66.01: Morbid (severe) obesity due to excess calories) 15. Vaping nicotine dependence, tobacco product (F17.290: Nicotine dependence, other tobacco product, uncomplicated) Noncompliance with medication regimen (Z91.14: Patient's other noncompliance with medication regimen) Extracted from: Title:Consult Note- Neurology Author:Faustina Ramirez RN Date:04/07/22 Reason for consult: Concern for seizure ASSESSMENT: 1. Seizure disorder. 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 Multiple previous EEGs with epileptiform discharges including May 2019 and August 2018. She says her typical seizure as of lately is a brief staring spell followed by a headache. One of those happened in the emergency department. 2. Right lower extremity numbness/paresthesias and weakness, persistent the last several weeks. At time of symptom onset she was evaluated at [facility] and had a stroke work-up, results of which are unclear. CT head here does not show any obvious areas of subacute ischemia. Could also consider lumbar radiculopathy as a potential explanation given her known lumbar spondylosis. Nondermatomal sensory loss and nonmyotomal pattern of weakness. 3. Chronic diabetic polyneuropathy. PLAN: 1. Obtaining hospital records from [facility] 2. Continue the Keppra at 750 mg twice daily 3. She no longer takes the Depakote because it made her feel sick (GI) 4. She takes pregabalin 150 mg nightly. We will change this to 75 mg twice daily to use it as a antiepilepsy adjunct. 5. Has a pacemaker, not allowed to have MRI at this institution 6. History of reported bipolar disorder but she says she takes 800 mg of Seroquel for sleep and should consider dose reduction but I defer to her mental health care provider 7. As an outpatient, consider repeat EMG testing of lower extremities as well as lumbar spine MR imaging. She follows with Dr. Low. 8. EEG not needed here at this time. No concern for ongoing or subclinical seizure activity. Multiple previous abnormal EEGs that were abnormal. An additional EEG will not private branch exchange operator. 1. DKA (diabetic ketoacidosis) (E11.10: Type 2 diabetes mellitus with ketoacidosis without coma) 2. Acute exacerbation of chronic obstructive pulmonary disease (COPD) (J44.1: Chronic obstructive pulmonary disease with (acute) exacerbation) 3. Acute encephalopathy (G93.40: Encephalopathy, unspecified) 4. History of seizures (Z87.898: Personal history of other specified conditions) 5. History of CVA in adulthood (Z86.73: Personal history of transient ischemic attack (TIA), and cerebral infarction without residual deficits) 6. Schizophrenia (F20.9: Schizophrenia, unspecified) 7. Bipolar disorder (F31.9: Bipolar disorder, unspecified) 8. History of cardiac arrest (Z86.74: Personal history of sudden cardiac arrest) 9. History of CHF (congestive heart failure) (Z86.79: Personal history of other diseases of the circulatory system) 10. Obstructive sleep apnea (G47.33: Obstructive sleep apnea (adult) (pediatric)) 11. Fibromyalgia (M79.7: Fibromyalgia) 12. Hypertension (I10: Essential (primary) hypertension) 13. GERD (gastroesophageal reflux disease) (K21.9: Gastro-esophageal reflux disease without esophagitis) 14. Morbid obesity (E66.01: Morbid (severe) obesity due to excess calories) 15. Vaping nicotine dependence, tobacco product (F17.290: Nicotine dependence, other tobacco product, uncomplicated) Noncompliance with medication regimen (Z91.14: Patient's other noncompliance with medication regimen) Extracted from: Title:Admission H & P Author:Ashutosh MENARD DO Date:04/07/22 1. DKA (diabetic ketoacidosi s) (E11.10: Type 2 diabetes mellitus with ketoacidosis without coma) Effie to be mild versus nonketotic hyperosmolar state with other causes of mild elevation in the anion gap mild acidosis. Patient states that her insulin pump has not been functioning, she is uncertain what her basal rate is. Note contributing to the persistently elevated glucose also was use of Solu-Medrol for below. We will repeat labs. Earlier we were unable to obtain labs for patient was refusing peripheral lab draws while in the emergency department, the port that she has was not functional. We are now able to draw blood, we will check for worsening acidosis, check a beta hydroxybutyrate. If CO2 is declining, beta hydroxybutyrate is elevated, will initiate insulin drip until patient's insulin pump can be brought in to assure that it is functional. For now have ordered sliding scale to labs return. We will for now hydrate with IV fluids but note history of below. If CO2 is normalized with a normal beta hydroxybutyrate and with IV fluids and for the passage of time since dosing of steroid blood sugars remain improved, can consider using sliding scale for now until able to get patient's insulin pump set up functioning improving to be adequate with glucose control Ordered: HgbA1c 2. Acute exacerbation of chronic obstructive pulmonary disease (COPD) (J44.1: Chronic obstructive pulmonary disease with (acute) exacerbation) We will avoid further steroids at this point. Patient is not wheezing like she was earlier in the emergency department in does not have any rhonchi. We will continue Zithromax, albuterol and Atrovent med nebs. Add Mucinex 3. Acute encephalopathy (G93.40: Encephalopathy, unspecified) This was described as transient not oriented to some of her points orientation. Patient states she has no recall of the event. Potentially multifactorial including due to osmotic effects of significant hyperglycemia. Question atypical seizure. Patient is presently alert and oriented. CT of the head was negative for any acute pathology. In light of this and history of below we will consult with neurology Ordered: Consult to Neurology EEG Keppra Lvl Sedimentation Rate Automated TSH With T4fr Reflex Vitamin B12 Level 4. History of seizures (Z87.898: Personal history of other specified conditions) Patient did have a presentation to the emergency department on 27 February with concerns about seizures at home. Patient describes staring off spells. She states she declines to use Depakote for it makes her nauseated. We will place her on seizure precautions. Consult with neurology. Obtain an EEG. Seizure precautions. With prior history of noncompliance we will get Keppra levels Ordered: Consult to Neurology Keppra Lvl Pad Siderails 5. History of CVA in adulthood (Z86.73: Personal history of transient ischemic attack (TIA), and cerebral infarction without residual deficits) Patient states she was hospitalized at [facility] with right leg weakness and numbness 3 weeks ago. Curiously she states she had been on aspirin previously and there was no change in her therapy. We will obtain records from [facility] in regards to her recent hospitalization. Continue aspirin for now. She does have right leg numbness and weakness which she states is stable and has existed since prior to her hospitalization. CT of the head in the emergency department demonstrated ? no acute pathology including no report of piror CVA?. Consult with neurology Ordered: Communication Order Physician to Nursing Consult to Neurology 6. Schizophrenia (F20.9: Schizophrenia, unspecified) Patient is on higher dose Seroquel at night last dose was the evening of Thursday. As it is late will give only 400 mg x 1 also for history of below, resume her usual 800 mg this evening if this dose is tolerated. Patient is strongly requesting also her medication this a.m. 7. Bipolar disorder (F31.9: Bipolar disorder, unspecified) See above regarding Seroquel. Continue Effexor. Patient states she declines and is no longer taking Depakote because she had GI side effects as suggested above 8. History of cardiac arrest (Z86.74: Personal history of sudden cardiac arrest) Patient has limited insight to the events that led to cardiac arrest but she did have an ICD placed at [facility] in 2019 denies any recent discharge of this defibrillator. We will monitor on telemetry. We will follow electrolytes. 9. History of CHF (congestive heart failure) (Z86.79: Personal history of other diseases of the circulatory system) Patient cannot provide details. Note patient did have an admission in December of this year with atypical chest pain. Sohail Fitzpatrick cardiology saw the patient. Their documentation suggest patient had a prior negative stress study but she was scheduled for 2-day study when she presented with chest pain. Patient acknowledges she did not pursue this and did not have a stress test. Patient implies she had a cardiac catheterization in 2019 with no significant disease but we do not have access to those records. At present do not feel that she is volume overloaded 10. Obstructive sleep apnea (G47.33: Obstructive sleep apnea (adult) (pediatric)) Patient is inconsistent stating that she did have obstructive sleep apnea. She placed a CPAP device in storage and it was lost. She states curiously she had a more recent outpatient stress study with no evidence of sleep apnea but then suggest a recent hospitalization she was advised that she was in need of positive pressure ventilation. We will observe while hospitalized 11. Fibromyalgia (M79.7: Fibromyalgia) Patient is on Lyrica 12. Hypertension (I10: Essential (primary) hypertension) Use as needed hydralazine. There are no antihypertensives noted on her home meds 13. GERD (gastroesophageal reflux disease) (K21.9: Gastro-esophageal reflux disease without esophagitis) Continue PPI 14. Morbid obesity (E66.01: Morbid (severe) obesity due to excess calories) With multiple comorbidities weight loss is advised 15. Vaping nicotine dependence, tobacco product (F17.290: Nicotine dependence, other tobacco product, uncomplicated) Only advised against this with above risk factors and recent CVA. Provide nicotine patch Noncompliance with medication regimen (Z91.14: Patient's other noncompliance with medication regimen) Orders: acetaminophen, 650 mg = 2 tab(s), Tab, Oral, q6hr PRN Pain, Routine, Start date 04/07/22 5:41:00 EST, 04/07/22 5:41:00 EST acetaminophen, 650 mg = 2 tab(s), Tab, Oral, q4hr PRN Pain, Routine, Start date 04/07/22 5:43:00 EST, 04/07/22 5:43:00 EST albuterol, 2.5 mg, 3 mL, Soln-Inh, Inhalation, q2hr PRN Shortness of breath or wheezing, Routine, Start date 04/07/22 5:43:00 EST albuterol-ipratropium, 3 mL, Soln-Inh, Inhalation, QID, Routine, Start date 04/07/22 8:00:00 EST aspirin, 81 mg = 1 tab(s), Tab-EC, Oral, Daily, Routine, Start date 04/07/22 9:00:00 EST, 04/07/22 5:41:00 EST aspirin, 81 mg = 1 tab(s), Tab-Chew, Chewed, Daily, Routine, Start date 04/07/22 9:00:00 EST, 04/07/22 5:30:00 EST atorvastatin, 80 mg = 2 tab(s), Tab, Oral, Daily, Routine, Start date 04/07/22 9:00:00 EST, 04/07/22 5:30:00 EST azithromycin, 500 mg = 2 tab(s), Tab, Oral, Daily for 5 day(s), Stop date 04/12/22 8:59:00 EST, Routine, Start date 04/07/22 9:00:00 EST, 04/07/22 5:43:00 EST busPIRone, 30 mg = 3 tab(s), Tab, Oral, BID, Routine, Start date 04/07/22 9:00:00 EST, 04/07/22 5:30:00 EST docusate, 100 mg = 1 cap(s), Cap, Oral, Daily PRN Constipation, Routine, Start date 04/07/22 5:43:00 EST, 04/07/22 5:43:00 EST glucose, 50 mL, Soln-IV, IV Push, Once PRN Blood glucose, Routine, Start date 04/07/22 5:46:00 EST guaifenesin, 1,200 mg = 2 tab(s), Tab-ER, Oral, BID, Routine, Start date 04/07/22 9:00:00 EST, 04/07/22 5:43:00 EST heparin, 5,000 unit(s) = 1 mL, Injection, SubCutaneous, BID for 30 day(s), Stop date 05/07/22 8:59:00 EST, Routine, Start date 04/07/22 9:00:00 EST, 04/07/22 5:41:00 EST hydrALAZINE, 10 mg = 0.5 mL, Injection, IV Push, q6hr PRN Other (see comment), Routine, Start date 04/07/22 5:41:00 EST, 04/07/22 5:41:00 EST insulin lispro, 0-10 Units, Injection-Insulin, SubCutaneous, QIDACHS, Routine, Start date 04/07/22 7:30:00 EST levetiracetam, 500 mg = 1 tab(s), Tab, Oral, BID, Routine, Start date 04/07/22 9:00:00 EST, 04/07/22 5:30:00 EST levetiracetam, 250 mg = 1 tab(s), Tab, Oral, BID, Routine, Start date 04/07/22 9:00:00 EST, 04/07/22 5:30:00 EST levothyroxine, 75 mcg = 1 tab(s), Tab, Oral, Daily, Routine, Start date 04/07/22 6:30:00 EST, 04/07/22 5:31:00 EST nicotine, 14 mg, 1 patch(es), Patch-ER, TransDermal, Daily, Routine, Start date 04/07/22 9:00:00 EST, Smoking cessation ondansetron, 4 mg = 2 mL, Injection, IV Push, q6hr PRN Nausea, Routine, Start date 04/07/22 5:41:00 EST, 04/07/22 5:41:00 EST ondansetron, 4 mg = 2 mL, Injection, IV Push, q6hr PRN Nausea/Vomiting, Routine, Start date 04/07/22 5:43:00 EST, 04/07/22 5:43:00 EST pantoprazole, 40 mg = 1 tab(s), Tab-DR, Oral, Daily, Routine, Start date 04/07/22 9:00:00 EST polyethylene glycol 3350, 17 gram = 1 EA, Powder-Recon, Oral, Daily PRN Constipation, Routine, Start date 04/07/22 5:43:00 EST, 04/07/22 5:43:00 EST pregabalin, 300 mg = 2 cap(s), Cap, Oral, Bedtime, Routine, Start date 04/07/22 21:00:00 EST, 04/07/22 5:31:00 EST quetiapine, 400 mg = 1 tab(s), Tab-ER, Oral, Once, Stop date 04/07/22 6:00:00 EST, Routine, Start date 04/07/22 6:00:00 EST, 04/07/22 5:51:00 EST quetiapine, 800 mg = 2 tab(s), Tab-ER, Oral, Bedtime, Routine, Start date 04/07/22 21:00:00 EST, 04/07/22 5:32:00 EST Sodium Chloride 0.9% intravenous solution 1,000 mL, 1,000 mL, IV, 75 mL/hr, Routine, Start date 04/07/22 5:41:00 EST, 13.3 hour(s), Total volume (mL): 1,000, 112 kg, 2.24, m2 venlafaxine, 150 mg = 1 cap(s), Cap-ER, Oral, Daily, Routine, Start date 04/07/22 9:00:00 EST, 04/07/22 5:32:00 EST Basic Metabolic Panel Beta-hydroxybutyrate Capillary Glucose POC Cardiac Monitoring CBC w/ Auto Diff Electrolyte Panel Elevate Head of Bed Extra Lav Tube Hypoglycemia Protocol Responsive Patient Hypoglycemia Protocol Unresponsive Patient Magnesium Level myStation Chronic Obstructive Pulmonary Disease COPD (ADRIANE:[id number]) Notify Provider Vital Signs Notify Provider Vital Signs NPO Diet Occupational Therapy Evaluate Patient, Develop a Plan of Care and Implement Plan Oxygen Protocol Physical Therapy Evaluate Patient, Develop a Plan of Care and Implement Plan Place in Status Resuscitation Status - Full Routine Capillary Glucose POC Smoking Cessation Instruction Sputum Culture Vital Signs Weight Patient is admitted as a general inpatient with the anticipation she require greater than 2 midnight stay Extracted from: Title:ED Note Author:Chantel Blackburn DO Date :04/07/22 Acute bronchitis (J20.9: Acu te bronchitis, unspecified) Hyperglycemia (R73.9: Hyperglycemia, unspecified) Noncompliance with medication regimen (Z91.14: Patient's other noncompliance with medication regimen) Orders: albuterol-ipratropium, 6 mL, Soln-Inh, Inhalation, Once, Stop date 04/06/22 21:11:00 EST, STAT, Start date 04/06/22 21:11:00 EST azithromycin, 500 mg = 2 tab(s), Tab, Oral, Once, Stop date 04/06/22 22:55:00 EST, STAT, Start date 04/06/22 22:55:00 EST, 04/06/22 22:55:00 EST brompheniramine/dextromethorphan/PSE, 5 mL, Syrup, Oral, Once, Stop date 04/06/22 22:56:00 EST, STAT, Start date 04/06/22 22:56:00 EST insulin regular, 10 unit(s), Injection-Insulin, SubCutaneous, Once, Stop date 04/07/22 0:06:00 EST, STAT, Start date 04/07/22 0:06:00 EST, 04/07/22 0:06:00 EST insulin regular, Injection-Insulin, Misc, Once, Stop date 04/07/22 0:11:14 EST, Physician Stop, 04/07/22 0:11:14 EST insulin regular, 10 unit(s) = 0.1 mL, Injection-Insulin, SubCutaneous, Once, Stop date 04/06/22 22:07:00 EST, STAT, Start date 04/06/22 22:07:00 EST insulin regular, Injection-Insulin, Misc, Once, Stop date 04/06/22 22:21:16 EST, Physician Stop, 04/06/22 22:21:16 EST methylPREDNISolone, 125 mg = 2 mL, Injection, IV Push, Once, Stop date 04/06/22 21:11:00 EST, STAT, Start date 04/06/22 21:11:00 EST, 04/06/22 21:11:00 EST Sodium Chloride 0.9% intravenous solution, 1,000 mL, Soln-IV, IV, Once, Stop date 04/06/22 21:11:00 EST, STAT, Start date 04/06/22 21:11:00 EST, mL/hr, Infuse over 61, minute(s) Sodium Chloride 0.9% intravenous solution 1,000 mL, 1,000 mL, IV, 983.61 mL/hr, for 30 day(s), Stop date 05/07/22 0:31:00 EST, STAT, Start date 04/07/22 0:32:00 EST, 61 minute(s), Total volume (mL): 1,000, 112 kg, 2.24, m2 Automated Diff B-Type Natriuretic Peptide Basic Metabolic Panel Blood Culture Charcoal Capillary Glucose POC Capillary Glucose POC Capillary Glucose POC Capillary Glucose POC CBC w/ Auto Diff Continuous Pulse Oximetry CT Head or Brain w/o Contrast ECG 12 Lead Adult ED Cardiac Monitoring ED Physician consult Hospitalist for continued care eGFR Oxygen Therapy Saline Lock Insert Troponin 0 Hr. XR Chest Single View Future Scheduled Tests Laboratory* Fecal WBC Lactoferrin 10/30/21 * HgbA1c 07/29/21 * Enteric Panel by PCR 10/30/21 * Thyroid Stimulating Hormone 07/29/21 Radiology* NM Myocardial Spect Rest/Stress 1 Day 12/16/21 * Echo Transthoracic Complete 09/03/21 [facility]11[facility]14-2022 Hospital Discharge instructions Patient Education 04/07/2022 07:24:34 Diabetes Mellitus and Nutrition, Adult Diabetes Mellitus and Nutrition, Adult When you have diabetes (diabetes mellitus), it is very important to have healthy eating habits because your blood sugar (glucose) levels are greatly affected by what you eat and drink. Eating healthyfoods in the appropriate amounts, at about the same times every day, can help you: Control your blood glucose. Lower your risk of heart disease. Improve your blood pressure. Reach or maintain a healthy weight. Every person with diabetes is different, and each person has different needs for a meal plan. Your health care provider may recommend that you work with a diet and nutritional assistant (dietitian) tomake a meal plan that is best for you. Your meal plan may vary depending on factors such as: The calories you need. The medicines you take. Your weight. Your blood glucose, blood pressure, and cholesterol levels. Your activity level. Other health conditions you have, such as heart or kidney disease. How do carbohydrates affect me? Carbohydrates, also called carbs, affect your blood glucose level more than any other type of food.Eating carbs naturally raises the amount of glucose in your blood. Carb counting is a method for keeping track of how many carbs you eat. Counting carbs is important to keep your blood glucose at a healthy level, especially if you use insulin or take certain oral diabetes medicines. It is important to know how many carbs you can safely have in each meal. This is different for every person. Your dietitian can help you calculate how many carbs you should have at each meal and for each snack. Foods that contain carbs include: Bread, cereal, rice, pasta, and crackers. Potatoes and corn. Peas, beans, and lentils. Milk and yogurt. Fruit and juice. Desserts, such as cakes, cookies, ice cream, and candy. How does alcohol affect me? Alcohol can cause a sudden decrease in blood glucose (hypoglycemia), especially if you use insulin or take certain oral diabetes medicines. Hypoglycemia can be a life-threatening condition. Symptoms of hypoglycemia (sleepiness, dizziness, and confusion) are similar to symptoms of having too much alcohol. If your health care provider says that alcohol is safe for you, follow these guidelines: Limit alcohol intake to no more than 1 drink per day for non women and 2 drinks per day formen. One drink equals 12 oz of beer, 5 oz of wine, or 1 oz of hard liquor. Do not drink on an empty stomach. Keep yourself hydrated with water, diet soda, or unsweetened iced tea. Keep in mind that regular soda, juice, and other mixers may contain a lot of sugar and must be counted as carbs. What are tips for following this plan? Reading food labels Start by checking the serving size on the Nutrition Facts label of packaged foods and drinks. Theamount of calories, carbs, fats, and other nutrients listed on the label is based on one serving ofthe item. Many items contain more than one serving per package. Check the total grams (g) of carbs in one serving. You can calculate the number of servings of carbs in one serving by dividing the total carbs by 15. For example, if a food has 30 g of total carbs, it would be equal to 2 servings of carbs. Check the number of grams (g) of saturated and trans fats in one serving. Choose foods that have low or no amount of these fats. Check the number of milligrams (mg) of salt (sodium) in one serving. Most people should limit totalsodium intake to less than 2,300 mg per day. Always check the nutrition information of foods labeled as low-fat or nonfat . These foods may be higher in added sugar or refined carbs and should be avoided. Talk to your dietitian to identify your daily goals for nutrients listed on the label. Shopping Avoid buying canned, premade, or processed foods. These foods tend to be high in fat, sodium, and added sugar. Shop around the outside edge of the grocery store. This includes fresh fruits and vegetables, bulk grains, fresh meats, and fresh dairy. Cooking Use low-heat cooking methods, such as baking, instead of high-heat cooking methods like deep frying. Cook using healthy oils, such as olive, canola, or sunflower oil. Avoid cooking with butter, cream, or high-fat meats. Meal planning Eat meals and snacks regularly, preferably at the same times every day. Avoid going long periods oftime without eating. Eat foods high in fiber, such as fresh fruits, vegetables, beans, and whole grains. Talk to your dietitian about how many servings of carbs you can eat at each meal. Eat 4 6 ounces (oz) of lean protein each day, such as lean meat, chicken, fish, eggs, or tofu. One oz of lean protein is equal to: ?1 oz of meat, chicken, or fish. ?1 egg. ? cup of tofu. Eat some foods each day that contain healthy fats, such as avocado, nuts, seeds, and fish. Lifestyle Check your blood glucose regularly. Exercise regularly as told by your health care provider. This may include: ?150 minutes of moderate-intensity or vigorous-intensity exercise each week. This could be brisk walking, biking, or water aerobics. ?Stretching and doing strength exercises, such as yoga or weightlifting, at least 2 times a week. Take medicines as told by your health care provider. Do not use any products that contain nicotine or tobacco, such as cigarettes and e-cigarettes. If you need help quitting, ask your health care provider. Work with a counselor or perinatal educator to identify strategies to manage stress and any emotional and social challenges. Questions to ask a health care provider Do I need to meet with a perinatal educator? Do I need to meet with a dietitian? What number can I call if I have questions? When are the best times to check my blood glucose? Where to find more information: [place] [employer]: diabetes.org Academy of Nutrition and Dietetics: www.eatright.org National [place] of Diabetes and Digestive and Kidney Diseases (NIH): www.niddk.nih.gov Summary A healthy meal plan will help you control your blood glucose and maintain a healthy lifestyle. Working with a diet and nutritional assistant (dietitian) can help you make a meal plan that is bestfor you. Keep in mind that carbohydrates (carbs) and alcohol have immediate effects on your blood glucose levels. It is important to count carbs and to use alcohol carefully. This information is not intended to replace advice given to you by your health care provider. Make sure you discuss any questions you have with your health care provider. Document Released: 02/05/2006 Document Revised: 04/23/2018 Document Reviewed: 06/15/2017 [employer] Patient Education 2020 [employer]. 04/07/2022 07:24:34 Diabetes Mellitus and Foot Care Diabetes Mellitus and Foot Care Foot care is an important part of your health, especially when you have diabetes. Diabetes may cause you to have problems because of poor blood flow (circulation) to your feet and legs, which can cause your skin to: Become thinner and clothes drier assembler. Break more easily. Heal more slowly. Peel and crack. You may also have nerve damage (neuropathy) in your legs and feet, causing decreased feeling in them. This means that you may not notice minor injuries to your feet that could lead to more serious problems. Noticing and addressing any potential problems early is the best way to prevent future foot problems. How to care for your feet Foot hygiene Wash your feet daily with warm water and mild soap. Do not use hot water. Then, pat your feet and the areas between your toes until they are completely dry. Do not soak your feet as this can dry yourskin. Trim your toenails straight across. Do not dig under them or around the cuticle. File the edges of your nails with an emery board or nail file. Apply a moisturizing lotion or petroleum jelly to the skin on your feet and to dry, brittle toenails. Use lotion that does not contain alcohol and is unscented. Do not apply lotion between your toes. Shoes and socks Wear clean socks or stockings every day. Make sure they are not too tight. Do not wear knee-high stockings since they may decrease blood flow to your legs. Wear shoes that fit properly and have enough cushioning. Always look in your shoes before you put them on to be sure there are no objects inside. To break in new shoes, wear them for just a few hours a day. This prevents injuries on your feet. Wounds, scrapes, corns, and calluses Check your feet daily for blisters, cuts, bruises, sores, and redness. If you cannot see the bottomof your feet, use a mirror or ask someone for help. Do not cut corns or calluses or try to remove them with medicine. If you find a minor scrape, cut, or break in the skin on your feet, keep it and the skin around it clean and dry. You may clean these areas with mild soap and water. Do not clean the area with peroxide, alcohol, or iodine. If you have a wound, scrape, corn, or callus on your foot, look at it several times a day to make sure it is healing and not infected. Check for: ?Redness, swelling, or pain. ?Fluid or blood. ?Warmth. ?Pus or a bad smell. General instructions Do not cross your legs. This may decrease blood flow to your feet. Do not use heating pads or hot water bottles on your feet. They may burn your skin. If you have lost feeling in your feet or legs, you may not know this is happening until it is too late. Protect your feet from hot and cold by wearing shoes, such as at the beach or on hot pavement. Schedule a complete foot exam at least once a year (annually) or more often if you have foot problems. If you have foot problems, report any cuts, sores, or bruises to your health care provider immediately. Contact a health care provider if: You have a medical condition that increases your risk of infection and you have any cuts, sores, orbruises on your feet. You have an injury that is not healing. You have redness on your legs or feet. You feel burning or tingling in your legs or feet. You have pain or cramps in your legs and feet. Your legs or feet are numb. Your feet always feel cold. You have pain around a toenail. Get help right away if: You have a wound, scrape, corn, or callus on your foot and: ?You have pain, swelling, or redness that gets worse. ?You have fluid or blood coming from the wound, scrape, corn, or callus. ?Your wound, scrape, corn, or callus feels warm to the touch. ?You have pus or a bad smell coming from the wound, scrape, corn, or callus. ?You have a fever. ?You have a red line going up your leg. Summary Check your feet every day for cuts, sores, red spots, swelling, and blisters. Moisturize feet and legs daily. Wear shoes that fit properly and have enough cushioning. If you have foot problems, report any cuts, sores, or bruises to your health care provider immediately. Schedule a complete foot exam at least once a year (annually) or more often if you have foot problems. This information is not intended to replace advice given to you by your health care provider. Make sure you discuss any questions you have with your health care provider. Document Released: 05/08/2001 Document Revised: 06/23/2018 Document Reviewed: 06/12/2017 [employer] Patient Education 2020 [employer]. 04/07/2022 07:24:32 Diabetes Mellitus and Exercise Diabetes Mellitus and Exercise Exercising regularly is important for your overall health, especially when you have diabetes (diabetes mellitus). Exercising is not only about losing weight. It has many other health benefits, such as increasing muscle strength and bone density and reducing body fat and stress. This leads to improved fitness, flexibility, and endurance, all of which result in better overall health. Exercise has additional benefits for people with diabetes, including: Reducing appetite. Helping to lower and control blood glucose. Lowering blood pressure. Helping to control amounts of fatty substances (lipids) in the blood, such as cholesterol and triglycerides. Helping the body to respond better to insulin (improving insulin sensitivity). Reducing how much insulin the body needs. Decreasing the risk for heart disease by: ?Lowering cholesterol and triglyceride levels. ?Increasing the levels of good cholesterol. ?Lowering blood glucose levels. What is my activity plan? Your health care provider or certified phlebotomy technician can help you make a plan for the type and frequency of exercise (activity plan) that works for you. Make sure that you: Do at least 150 minutes of moderate-intensity or vigorous-intensity exercise each week. This could be brisk walking, biking, or water aerobics. ?Do stretching and strength exercises, such as yoga or weightlifting, at least 2 times a week. ?Spread out your activity over at least 3 days of the week. Get some form of physical activity every day. ?Do not go more than 2 days in a row without some kind of physical activity. ?Avoid being inactive for more than 30 minutes at a time. Take frequent breaks to walk or stretch. Choose a type of exercise or activity that you enjoy, and set realistic goals. Start slowly, and gradually increase the intensity of your exercise over time. What do I need to know about managing my diabetes? Check your blood glucose before and after exercising. ?If your blood glucose is 240 mg/dL (13.3 mmol/L) or higher before you exercise, check your urine for ketones. If you have ketones in your urine, do not exercise until your blood glucose returns to normal. ?If your blood glucose is 100 mg/dL (5.6 mmol/L) or lower, eat a snack containing 15 20 grams of carbohydrate. Check your blood glucose 15 minutes after the snack to make sure that your level is above 100 mg/dL (5.6 mmol/L) before you start your exercise. Know the symptoms of low blood glucose (hypoglycemia) and how to treat it. Your risk for hypoglycemia increases during and after exercise. Common symptoms of hypoglycemia can include: ?Hunger. ?Anxiety. ?Sweating and feeling clammy. ?Confusion. ?Dizziness or feeling light-headed. ?Increased heart rate or palpitations. ?Blurry vision. ?Tingling or numbness around the mouth, lips, or tongue. ?Tremors or shakes. ?Irritability. Keep a rapid-acting carbohydrate snack available before, during, and after exercise to help preventor treat hypoglycemia. Avoid injecting insulin into areas of the body that are going to be exercised. For example, avoid injecting insulin into: ?The arms, when playing tennis. ?The legs, when jogging. Keep records of your exercise habits. Doing this can help you and your health care provider adjust your diabetes management plan as needed. Write down: ?Food that you eat before and after you exercise. ?Blood glucose levels before and after you exercise. ?The type and amount of exercise you have done. ?When your insulin is expected to peak, if you use insulin. Avoid exercising at times when your insulin is peaking. When you start a new exercise or activity, work with your health care provider to make sure the activity is safe for you, and to adjust your insulin, medicines, or food intake as needed. Drink plenty of water while you exercise to prevent dehydration or heat stroke. Drink enough fluid to keep your urine clear or pale yellow. Summary Exercising regularly is important for your overall health, especially when you have diabetes (diabetes mellitus). Exercising has many health benefits, such as increasing muscle strength and bone density and reducing body fat and stress. Your health care provider or certified phlebotomy technician can help you make a plan for the type and frequency of exercise (activity plan) that works for you. When you start a new exercise or activity, work with your health care provider to make sure the activity is safe for you, and to adjust your insulin, medicines, or food intake as needed. This information is not intended to replace advice given to you by your health care provider. Make sure you discuss any questions you have with your health care provider. Document Released: 07/31/2004 Document Revised: 12/03/2017 Document Reviewed: 10/20/2016 [employer] Patient Education 2020 [employer]. Follow Up Care 04/06/2022 20:30:13 With:Anupam STEVENS, SAMUEL Jaimes Address: [address] [facility] [address] [place] [address] [facility] (1) When:05/01/2022 12:40:00 With:Radha Dias DO Address: [address] , [address] [address]- When:04/23/2022 12:45:00 [facility]10-06-2022 Hospital Discharge instructions Patient Education 02/27/2022 17:35:47 Nonspecific Chest Pain, Adult, [id number] Nonspecific Chest Pain Chest pain can be caused by many different conditions. Some causes of chest pain can be life-threatening. These will require treatment right away. Serious causes of chest pain include: Heart attack. A tear in the body's main blood vessel. Redness and swelling (inflammation) around your heart. Blood clot in your lungs. Other causes of chest pain may not be so serious. These include: Heartburn. Anxiety or stress. Damage to bones or muscles in your chest. Lung infections. Chest pain can feel like: Pain or discomfort in your chest. Crushing, pressure, aching, or squeezing pain. Burning or tingling. Dull or sharp pain that is worse when you move, cough, or take a deep breath. Pain or discomfort that is also felt in your back, neck, jaw, shoulder, or arm, or pain that spreads to any of these areas. It is hard to know whether your pain is caused by something that is serious or something that is not so serious. So it is important to see your doctor right away if you have chest pain. Follow these instructions at home: Medicines Take [id number] and prescription medicines only as told by your doctor. If you were prescribed an antibiotic medicine, take it as told by your doctor. Do not stop taking the antibiotic even if you start to feel better. Lifestyle Rest as told by your doctor. Do not use any products that contain nicotine or tobacco, such as cigarettes, e- cigarettes, and chewing tobacco. If you need help quitting, ask your doctor. Do not drink alcohol. Make lifestyle changes as told by your doctor. These may include: ?Getting regular exercise. Ask your doctor what activities are safe for you. ?Eating a heart-healthy diet. A diet and nutritional assistant (dietitian) can help you to learn healthy eating options. ?Staying at a healthy weight. ?Treating diabetes or high blood pressure, if needed. ?Lowering your stress. Activities such as yoga and relaxation techniques can help. General instructions Pay attention to any changes in your symptoms. Tell your doctor about them or any new symptoms. Avoid any activities that cause chest pain. Keep all follow-up visits as told by your doctor. This is important. You may need more testing if your chest pain does not go away. Contact a doctor if: Your chest pain does not go away. You feel depressed. You have a fever. Get help right away if: Your chest pain is worse. You have a cough that gets worse, or you cough up blood. You have very bad (severe) pain in your belly (abdomen). You pass out (faint). You have either of these for no clear reason: ?Sudden chest discomfort. ?Sudden discomfort in your arms, back, neck, or jaw. You have shortness of breath at any time. You suddenly start to sweat, or your skin gets clammy. You feel sick to your stomach (nauseous). You throw up (vomit). You suddenly feel lightheaded or dizzy. You feel very weak or tired. Your heart starts to beat fast, or it feels like it is skipping beats. These symptoms may be an emergency. Do not wait to see if the symptoms will go away. Get medical help right away. Call your local emergency services (911 in the [place] Do not drive yourself to the hospital. Summary Chest pain can be caused by many different conditions. The cause may be serious and need treatment right away. If you have chest pain, see your doctor right away. Follow your doctor's instructions for taking medicines and making lifestyle changes. Keep all follow-up visits as told by your doctor. This includes visits for any further testing if your chest pain does not go away. Be sure to know the signs that show that your condition has become worse. Get help right away if you have these symptoms. This information is not intended to replace advice given to you by your health care provider. Make sure you discuss any questions you have with your health care provider. Document Released: 10/27/2008 Document Revised: 11/11/2018 Document Reviewed: 11/11/2018 [employer] Patient Education 2020 [employer]. 02/27/2022 17:35:47 Seizure, Adult, Ikpj-ts-Hlwb Seizure, Adult A seizure is a sudden burst of abnormal electrical activity in the brain. Seizures usually last from 30 seconds to 2 minutes. They can cause many different symptoms. Usually, seizures are not harmful unless they last a long time. What are the causes? Common causes of this condition include: Fever or infection. Conditions that affect the brain, such as: ?A brain abnormality that you were born with. ?A brain or head injury. ?Bleeding in the brain. ?A tumor. ?Stroke. ?Brain disorders such as autism or cerebral palsy. Low blood sugar. Conditions that are passed from parent to child (are inherited). Problems with substances, such as: ?Having a reaction to a drug or a medicine. ?Suddenly stopping the use of a substance (withdrawal). In some cases, the cause may not be known. A person who has repeated seizures over time without a clear cause has a condition called epilepsy. What increases the risk? You are more likely to get this condition if you have: A family history of epilepsy. Had a seizure in the past. A brain disorder. A history of head injury, lack of oxygen at , or strokes. What are the signs or symptoms? There are many types of seizures. The symptoms vary depending on the type of seizure you have. Examples of symptoms during a seizure include: Shaking (convulsions). Stiffness in the body. Passing out (losing consciousness). Head nodding. Staring. Not responding to sound or touch. Loss of bladder control and bowel control. Some people have symptoms right before and right after a seizure happens. Symptoms before a seizure may include: Fear. Worry (anxiety). Feeling like you may vomit (nauseous). Feeling like the room is spinning (vertigo). Feeling like you saw or heard something before (lauren jordan). Odd tastes or smells. Changes in how you see. You may see flashing lights or spots. Symptoms after a seizure happens can include: Confusion. Sleepiness. Headache. Weakness on one side of the body. How is this treated? Most seizures will stop on their own in under 5 minutes. In these cases, no treatment is needed. Seizures that last longer than 5 minutes will usually need treatment. Treatment can include: Medicines given through an IV tube. Avoiding things that are known to cause your seizures. These can include medicines that you take for another condition. Medicines to treat epilepsy. Surgery to stop the seizures. This may be needed if medicines do not help. Follow these instructions at home: Medicines Take hypu-yjq-xfkrdkm and prescription medicines only as told by your doctor. Do not eat or drink anything that may keep your medicine from working, such as alcohol. Activity Do not do any activities that would be dangerous if you had another seizure, like driving or swimming. Wait until your doctor says it is safe for you to do them. If you live in the [place] ask your local DMV (department of [place]) when you can drive. Get plenty of rest. Teaching others Teach friends and family what to do when you have a seizure. They should: Lay you on the ground. Protect your head and body. Loosen any tight clothing around your neck. Turn you on your side. Not hold you down. Not put anything into your mouth. Know whether or not you need emergency care. Stay with you until you are better. General instructions Contact your doctor each time you have a seizure. Avoid anything that gives you seizures. Keep a seizure diary. Write down: ?What you think caused each seizure. ?What you remember about each seizure. Keep all follow-up visits as told by your doctor. This is important. Contact a doctor if: You have another seizure. You have seizures more often. There is any change in what happens during your seizures. You keep having seizures with treatment. You have symptoms of being sick or having an infection. Get help right away if: You have a seizure that: ?Lasts longer than 5 minutes. ?Is different than seizures you had before. ?Makes it harder to breathe. ?Happens after you hurt your head. You have any of these symptoms after a seizure: ?Not being able to speak. ?Not being able to use a part of your body. ?Confusion. ?A bad headache. You have two or more seizures in a row. You do not wake up right after a seizure. You get hurt during a seizure. These symptoms may be an emergency. Do not wait to see if the symptoms will go away. Get medical help right away. Call your local emergency services (911 in the [place] Do not drive yourself to the hospital. Summary Seizures usually last from 30 seconds to 2 minutes. Usually, they are not harmful unless they last a long time. Do not eat or drink anything that may keep your medicine from working, such as alcohol. Teach friends and family what to do when you have a seizure. Contact your doctor each time you have a seizure. This information is not intended to replace advice given to you by your health care provider. Make sure you discuss any questions you have with your health care provider. Document Released: 10/27/2008 Document Revised: 07/29/2019 Document Reviewed: 07/29/2019 [employer] Patient Education 2020 [employer]. Follow Up Care 02/27/2022 11:56:29 With:Recheck with [facility] next week Address:Unknown When: Unknown With:Radha Dias Address: [address] [place] [address] [place], [facility], [facility] [address] [id number] Business (1) When:Within 3 Day(s) [facility]10-06-2022 Evaluation + Plan noteExtracted from: Title:ED Note Author:Lucia Castorena Date: CBC/BMP: Hyperglycemia, mild hyponatremia EKG Troponin: negative for acute ischemia Keppra and Valproic acid levels pending CXR: lungs clear, port and pacemaker unchanged in position. 1. Breakthrough seizure (G40.919: Epilepsy, unspecified, intractable, without status epilepticus) 2. Atypical chest pain (R07.89: Other chest pain) Orders: levetiracetam, 250 mg = 1 tab(s), Oral, BID, # 60 tab(s), Refills(s) 0, Pharmacy: [facility], 157, cm, 02/27/22 12:02:00 EDT, Height/Length Dosing, 113.5, kg, 02/27/22 12:02:00 EDT, Weight Dosing levetiracetam, 250 mg = 1 tab(s), Tab, Oral, Once, Stop date 02/27/22 15:49:00 EDT, STAT, Start date 02/27/22 15:49:00 EDT, 02/27/22 15:49:00 EDT morphine, 4 mg = 2 mL, Injection, IV Push, Once, Stop date 02/27/22 13:48:00 EDT, STAT, Start date 02/27/22 13:48:00 EDT, 02/27/22 13:48:00 EDT morphine, 2 mg = 1 mL, Injection, IV Push, Once, Stop date 02/27/22 15:49:00 EDT, STAT, Start date 02/27/22 15:49:00 EDT, 02/27/22 15:49:00 EDT ondansetron, 4 mg = 2 mL, Injection, IV Push, Once, Stop date 02/27/22 13:48:00 EDT, STAT, Start date 02/27/22 13:48:00 EDT, 02/27/22 13:48:00 EDT Troponin 3 Hr. XR Pelvis 1 or 2 Views Diagnostic Tests Pending * Keppra Lvl 02/27/22 Future Scheduled Tests Laboratory* Fecal WBC Lactoferrin 10/30/21 * HgbA1c 07/29/21 * Enteric Panel by PCR 10/30/21 * Thyroid Stimulating Hormone 07/29/21 Radiology* NM Myocardial Spect Rest/Stress 1 Day 12/16/21 * Echo Transthoracic Complete 09/03/21 [facility]09-30-2022 Hospital Discharge instructions Patient Education 02/21/2022 15:44:29 Laceration Care, Adult Laceration Care, Adult A laceration is a cut that may go through all layers of the skin and into the tissue that is right under the skin. Some lacerations heal on their own. Others need to be closed with stitches (sutures), ni, skin adhesive strips, or skin glue. Proper care of a laceration reduces the risk for infection, helps the laceration heal better, and may prevent scarring. How to care for your laceration Wash your hands with soap and water before touching your wound or changing your bandage (dressing).If soap and water are not available, use hand agile project manager. Keep the wound clean and dry. If you were given a dressing, you should change it at least once a day, or as told by your health care provider. You should also change it if it becomes wet or dirty. If sutures or ni were used: Keep the wound completely dry for the first 24 hours, or as told by your health care provider. After that time, you may shower or bathe. However, make sure that the wound is not soaked in water untilafter the sutures or ni have been removed. Clean the wound once each day, or as told by your health care provider: ?Wash the wound with soap and water. ?Rinse the wound with water to remove all soap. ?Pat the wound dry with a clean towel. Do not rub the wound. After cleaning the wound, apply a thin layer of antibiotic ointment as told by your health care provider. This will help prevent infection and keep the dressing from sticking to the wound. Have the sutures or ni removed as told by your health care provider. If skin adhesive strips were used: Do not get the skin adhesive strips wet. You may shower or bathe, but be careful to keep the wound dry. If the wound gets wet, pat it dry with a clean towel. Do not rub the wound. Skin adhesive strips fall off on their own. You may trim the strips as the wound heals. Do not remove skin adhesive strips that are still stuck to the wound. They will fall off in time. If skin glue was used: Try to keep the wound dry, but you may briefly wet it in the shower or bath. Do not soak the wound in water, such as by swimming. After you have showered or bathed, gently pat the wound dry with a clean towel. Do not rub the wound. Do not do any activities that will make you sweat heavily until the skin glue has fallen off on itsown. Do not apply liquid, cream, or ointment medicine to the wound while the skin glue is in place. Using those may loosen the film before the wound has healed. If a dressing is placed over the wound, be careful not to apply tape directly over the skin glue. Doing that may cause the glue to be pulled off before the wound has healed. Do not pick at the glue. Skin glue usually remains in place for 5 10 days and then falls off the skin. General instructions Take fkvu-gzc-ttorhst and prescription medicines only as told by your health care provider. If you were prescribed an antibiotic medicine or ointment, take or apply it as told by your health care provider. Do not stop using it even if your condition improves. Do not scratch or pick at the wound. Check your wound every day for signs of infection. Watch for: ?Redness, swelling, or pain. ?Fluid, blood, or pus. Raise (elevate) the injured area above the level of your heart while you are sitting or lying down for the first 24 48 hours after the laceration is repaired. If directed, put ice on the affected area: ?Put ice in a plastic bag. ?Place a towel between your skin and the bag. ?Leave the ice on for 20 minutes, 2 3 times a day. Keep all follow-up visits as told by your health care provider. This is important. Contact a health care provider if: You received a tetanus shot and you have swelling, severe pain, redness, or bleeding at the injection site. You have a fever. A wound that was closed breaks open. You notice a bad smell coming from your wound or your dressing. You notice something coming out of the wound, such as wood or glass. Your pain is not controlled with medicine. You have increased redness, swelling, or pain at the site of your wound. You have fluid, blood, or pus coming from your wound. You need to change the dressing often due to fluid, blood, or pus that is draining from the wound. You develop a new rash. You develop numbness around the wound. Get help right away if: You develop severe swelling around the wound. Your pain suddenly increases and is severe. You develop painful lumps near the wound or on skin anywhere else on your body. You have a red streak going away from your wound. The wound is on your hand or foot and you cannot properly move a finger or toe. The wound is on your hand or foot, and you notice that your fingers or toes look pale or bluish. Summary A laceration is a cut that may go through all layers of the skin and into the tissue that is right under the skin. Some lacerations heal on their own. Others need to be closed with stitches (sutures), ni, skinadhesive strips, or skin glue. Proper care of a laceration reduces the risk of infection, helps the laceration heal better, and prevents scarring. This information is not intended to replace advice given to you by your health care provider. Make sure you discuss any questions you have with your health care provider. Document Released: 05/11/2006 Document Revised: 07/09/2018 Document Reviewed: 05/31/2018 [employer] Patient Education 2020 [employer]. Follow Up Care 02/21/2022 14:51:18 With:Radha Dias Address: [address] , [address] [address]- [facility] (1) When:02/24/2022 15:15:47 Comments:Follow-up with your primary care provider in 3 to 5 days. If symptoms worsen, do not improve, or new symptoms arise please report back to emergency department for further evaluation. Sutures to be removed in 10 days. [facility]09-02-2022 Hospital Discharge instructions Patient Education 01/24/2022 14:32:12 Nausea and Vomiting, Adult Nausea and Vomiting, Adult Nausea is the feeling that you have an upset stomach or that you are about to vomit. Vomiting is when stomach contents are thrown up and out of the mouth as a result of nausea. Vomiting can make you feel weak and cause you to become dehydrated. Dehydration can make you feel tired and thirsty, cause you to have a dry mouth, and decrease how often you urinate. Older adults and people with other diseases or a weak disease-fighting system (immune system) are at higher risk for dehydration. It is important to treat your nausea and vomiting as told by your health care provider. Follow these instructions at home: Watch your symptoms for any changes. Tell your health care provider about them. Follow these instructions to care for yourself at home. Eating and drinking Take an oral rehydration solution (ORS). This is a drink that is sold at pharmacies and retail stores. Drink clear fluids slowly and in small amounts as you are able. Clear fluids include water, ice chips, low-calorie sports drinks, and fruit juice that has water added (diluted fruit juice). Eat bland, xnlh-px-gistmg foods in small amounts as you are able. These foods include bananas, applesauce, rice, lean meats, toast, and crackers. Avoid fluids that contain a lot of sugar or caffeine, such as energy drinks, sports drinks, and soda. Avoid alcohol. Avoid spicy or fatty foods. General instructions Take subx-cyt-qnqdchm and prescription medicines only as told by your health care provider. Drink enough fluid to keep your urine pale yellow. Wash your hands often using soap and water. If soap and water are not available, use hand agile project manager. Make sure that all people in your household wash their hands well and often. Rest at home while you recover. Watch your condition for any changes. Breathe slowly and deeply when you feel nauseated. Keep all follow-up visits as told by your health care provider. This is important. Contact a health care provider if: Your symptoms get worse. You have new symptoms. You have a fever. You cannot drink fluids without vomiting. Your nausea does not go away after 2 days. You feel light-headed or dizzy. You have a headache. You have muscle cramps. You have a rash. You have pain while urinating. Get help right away if: You have pain in your chest, neck, arm, or jaw. You feel extremely weak or you faint. You have persistent vomiting. You have vomit that is bright red or looks like black coffee grounds. You have bloody or black stools or stools that look like tar. You have a severe headache, a stiff neck, or both. You have severe pain, cramping, or bloating in your abdomen. You have difficulty breathing, or you are breathing very quickly. Your heart is beating very quickly. Your skin feels cold and clammy. You feel confused. You have signs of dehydration, such as: ?Dark urine, very little urine, or no urine. ?Cracked lips. ?Dry mouth. ?Sunken eyes. ?Sleepiness. ?Weakness. These symptoms may represent a serious problem that is an emergency. Do not wait to see if the symptoms will go away. Get medical help right away. Call your local emergency services (911 in the [place] Do not drive yourself to the hospital. Summary Nausea is the feeling that you have an upset stomach or that you are about to vomit. As nausea getsworse, it can lead to vomiting. Vomiting can make you feel weak and cause you to become dehydrated. Follow instructions from your health care provider about eating and drinking to prevent dehydration. Take zshl-jca-gbmfhkm and prescription medicines only as told by your health care provider. Contact your health care provider if your symptoms get worse, or you have new symptoms. Keep all follow-up visits as told by your health care provider. This is important. This information is not intended to replace advice given to you by your health care provider. Make sure you discuss any questions you have with your health care provider. Document Released: 05/11/2006 Document Revised: 09/02/2019 Document Reviewed: 10/19/2018 [employer] Patient Education 2020 [employer]. 01/24/2022 14:32:12 Diarrhea, Adult Diarrhea, Adult Diarrhea is frequent loose and watery bowel movements. Diarrhea can make you feel weak and cause you to become dehydrated. Dehydration can make you tired and thirsty, cause you to have a dry mouth, and decrease how often you urinate. Diarrhea typically lasts 2 3 days. However, it can last longer if it is a sign of something more serious. It is important to treat your diarrhea as told by your health care provider. Follow these instructions at home: Eating and drinking Follow these recommendations as told by your health care provider: Take an oral rehydration solution (ORS). This is an syls-smg-knussov medicine that helps return your body to its normal balance of nutrients and water. It is found at pharmacies and retail stores. Drink plenty of fluids, such as water, ice chips, diluted fruit juice, and low- calorie sports drinks. You can drink milk also, if desired. Avoid drinking fluids that contain a lot of sugar or caffeine, such as energy drinks, sports drinks, and soda. Eat bland, erko-pl-gvslnr foods in small amounts as you are able. These foods include bananas, applesauce, rice, lean meats, toast, and crackers. Avoid alcohol. Avoid spicy or fatty foods. Medicines Take lges-qsc-asqwrpb and prescription medicines only as told by your health care provider. If you were prescribed an antibiotic medicine, take it as told by your health care provider. Do notstop using the antibiotic even if you start to feel better. General instructions Wash your hands often using soap and water. If soap and water are not available, use a hand agile project manager. Others in the household should wash their hands as well. Hands should be washed: ?After using the toilet or changing a diaper. ?Before preparing, cooking, or serving food. ?While caring for a sick person or while visiting someone in a hospital. Drink enough fluid to keep your urine pale yellow. Rest at home while you recover. Watch your condition for any changes. Take a warm bath to relieve any burning or pain from frequent diarrhea episodes. Keep all follow-up visits as told by your health care provider. This is important. Contact a health care provider if: You have a fever. Your diarrhea gets worse. You have new symptoms. You cannot keep fluids down. You feel light-headed or dizzy. You have a headache. You have muscle cramps. Get help right away if: You have chest pain. You feel extremely weak or you faint. You have bloody or black stools or stools that look like tar. You have severe pain, cramping, or bloating in your abdomen. You have trouble breathing or you are breathing very quickly. Your heart is beating very quickly. Your skin feels cold and clammy. You feel confused. You have signs of dehydration, such as: ?Dark urine, very little urine, or no urine. ?Cracked lips. ?Dry mouth. ?Sunken eyes. ?Sleepiness. ?Weakness. Summary Diarrhea is frequent loose and watery bowel movements. Diarrhea can make you feel weak and cause you to become dehydrated. Drink enough fluids to keep your urine pale yellow. Make sure that you wash your hands after using the toilet. If soap and water are not available, usehand agile project manager. Contact a health care provider if your diarrhea gets worse or you have new symptoms. Get help right away if you have signs of dehydration. This information is not intended to replace advice given to you by your health care provider. Make sure you discuss any questions you have with your health care provider. Document Released: 05/01/2003 Document Revised: 09/27/2019 Document Reviewed: 10/15/2018 [employer] Patient Education 2020 [employer]. 01/24/2022 14:32:12 Acute Pain, Adult Acute Pain, Adult Acute pain is a type of sudden pain that may last for just a few days or for as long as six months.It is often related to an illness, injury, or medical procedure. Acute pain may be mild, moderate, or severe. Pain can make it hard for you to do your normal, daily activities. It can cause anxiety and lead toother problems if it is left untreated. Treatment depends on the cause and severity of your pain. Acute pain usually goes away once your injury has healed or you are no longer ill. Follow these instructions at home: Medicines Take nazk-suf-qgmlbag and prescription medicines only as told by your health care provider. Take the lowest dose of medicine for the shortest amount of time needed to relieve the pain. If you are taking prescription pain medicine: ?Do not stop taking the medicine suddenly. Talk to your health care provider about how and when to discontinue prescription medicine. ?Do not take more pills than told by your health care provider even if your pain is severe. ?Do not take other rpvq-daq-mwhuoaf pain medicines in addition to prescription pain medicine unlesstold by your health care provider. ?Ask your health care provider if the medicine requires you to avoid driving or using heavy machinery. ?Ask your health care provider if the medicine can cause constipation. You may need to take these actions to prevent or treat constipation: ?Drink enough fluid to keep your urine pale yellow. ?Eat foods that are high in fiber, such as beans, whole grains, and fresh fruits and vegetables. ?Take xrbn-ybt-bryeoww or prescription medicines. ?Limit foods that are high in fat and processed sugars, such as fried or sweet foods. Managing pain, stiffness, and swelling If directed, put ice on the affected area. To do this: Put ice in a plastic bag. Place a towel between your skin and the bag. Leave the ice on for 20 minutes, 2 3 times a day. If directed, apply heat to the affected area as often as told by your health care provider. Use theheat source that your health care provider recommends, such as a moist heat pack or a heating pad. Place a towel between your skin and the heat source. Leave the heat on for 20 30 minutes. Remove the heat if your skin turns bright red. This is especially important if you are unable to feel pain, heat, or cold. You may have a greater risk of getting burned. Activity Rest as told by your health care provider. Return to your normal activities as told by your health care provider. Ask your health care provider what activities are safe for you. General instructions Check your pain level as told by your health care provider. Ask your health care provider if other strategies such as distraction, relaxation, or physical therapies can help your pain. Keep all follow-up visits as told by your health care provider. This is important. Contact a health care provider if: Your pain is not controlled by medicine. Your pain does not improve or gets worse. You have side effects from pain medicines, such as vomiting or confusion. Get help right away if you: Have severe pain. Have trouble breathing. Lose consciousness. Have chest pain or pressure that lasts for more than a few minutes, or if you have other symptoms along with chest pain, including if you: ?Have pain or discomfort in one or both arms, your back, neck, jaw, or stomach. ?Have shortness of breath. ?Break out in a cold sweat. ?Feel nauseous. ?Become light-headed. These symptoms may represent a serious problem that is an emergency. Do not wait to see if the symptoms will go away. Get medical help right away. Call your local emergency services (911 in the [place] Do not drive yourself to the hospital. Summary Acute pain may be mild, moderate, or severe. It usually goes away once your injury has healed or you are no longer ill. Take yuav-pwc-mhbozhk and prescription medicines only as told by your health care provider. Ask your health care provider if the medicine prescribed to you can cause constipation. Contact a health care provider if your pain is not controlled by medicine. This information is not intended to replace advice given to you by your health care provider. Make sure you discuss any questions you have with your health care provider. Document Released: 05/25/2016 Document Revised: 09/26/2019 Document Reviewed: 09/26/2019 Elsevier Patient Education 2019 [employer] Follow Up Care 01/24/2022 10:45:45 With:Radha Dias Address: [address] [place] [address]- Business (1) When:01/27/2022 14:08:11 [facility]08-18-2022 Hospital Discharge instructions Patient Education 01/09/2022 17:03:20 Musculoskeletal Pain Musculoskeletal Pain Musculoskeletal pain refers to aches and pains in your bones, joints, muscles, and the tissues thatsurround them. This pain can occur in any part of the body. It can last for a short time (acute) ora long time (chronic). A physical exam, lab tests, and imaging studies may be done to find the cause of your musculoskeletal pain. Follow these instructions at home: Lifestyle Try to control or lower your stress levels. Stress increases muscle tension and can worsen musculoskeletal pain. It is important to recognize when you are anxious or stressed and learn ways to manageit. This may include: ?Meditation or yoga. ?Cognitive or behavioral therapy. ?Acupuncture or massage therapy. You may continue all activities unless the activities cause more pain. When the pain gets better, slowly resume your normal activities. Gradually increase the intensity and duration of your activities or exercise. Managing pain, stiffness, and swelling Take vmba-avg-okpqzpa and prescription medicines only as told by your health care provider. When your pain is severe, bed rest may be helpful. Lie or sit in any position that is comfortable, but get out of bed and walk around at least every couple of hours. If directed, apply heat to the affected area as often as told by your health care provider. Use theheat source that your health care provider recommends, such as a moist heat pack or a heating pad. ?Place a towel between your skin and the heat source. ?Leave the heat on for 20 30 minutes. ?Remove the heat if your skin turns bright red. This is especially important if you are unable to feel pain, heat, or cold. You may have a greater risk of getting burned. If directed, put ice on the painful area. ?Put ice in a plastic bag. ?Place a towel between your skin and the bag. ?Leave the ice on for 20 minutes, 2 3 times a day. General instructions Your health care provider may recommend that you see a physical therapist. This person can help youcome up with a safe exercise program. Do any exercises as told by your physical therapist. Keep all follow-up visits, including any physical therapy visits, as told by your health care providers. This is important. Contact a health care provider if: Your pain gets worse. Medicines do not help ease your pain. You cannot use the part of your body that hurts, such as your arm, leg, or neck. You have trouble sleeping. You have trouble doing your normal activities. Get help right away if: You have a new injury and your pain is worse or different. You feel numb or you have tingling in the painful area. Summary Musculoskeletal pain refers to aches and pains in your bones, joints, muscles, and the tissues thatsurround them. This pain can occur in any part of the body. Your health care provider may recommend that you see a physical therapist. This person can help youcome up with a safe exercise program. Do any exercises as told by your physical therapist. Lower your stress level. Stress can worsen musculoskeletal pain. Ways to lower stress may include meditation, yoga, cognitive or behavioral therapy, acupuncture, and massage therapy. This information is not intended to replace advice given to you by your health care provider. Make sure you discuss any questions you have with your health care provider. Document Released: 05/11/2006 Document Revised: 04/23/2018 Document Reviewed: 06/10/2017 [employer] Patient Education 2020 [employer]. 01/09/2022 17:03:20 Chest Wall Pain Chest Wall Pain Chest wall pain is pain in or around the bones and muscles of your chest. Sometimes, an injury causes this pain. Excessive coughing or overuse of arm and chest muscles may also cause chest wall pain.Sometimes, the cause may not be known. This pain may take several weeks or longer to get better. Follow these instructions at home: Managing pain, stiffness, and swelling If directed, put ice on the painful area: ?Put ice in a plastic bag. ?Place a towel between your skin and the bag. ?Leave the ice on for 20 minutes, 2 3 times per day. Activity Rest as told by your health care provider. Avoid activities that cause pain. These include any activities that use your chest muscles or your abdominal and side muscles to lift heavy items. Ask your health care provider what activities are safe for you. General instructions Take tykz-qhb-cqahvcg and prescription medicines only as told by your health care provider. Do not use any products that contain nicotine or tobacco, such as cigarettes, e- cigarettes, and chewing tobacco. These can delay healing after injury. If you need help quitting, ask your health care provider. Keep all follow-up visits as told by your health care provider. This is important. Contact a health care provider if: You have a fever. Your chest pain becomes worse. You have new symptoms. Get help right away if: You have nausea or vomiting. You feel sweaty or light-headed. You have a cough with mucus from your lungs (sputum) or you cough up blood. You develop shortness of breath. These symptoms may represent a serious problem that is an emergency. Do not wait to see if the symptoms will go away. Get medical help right away. Call your local emergency services (911 in the [place] Do not drive yourself to the hospital. Summary Chest wall pain is pain in or around the bones and muscles of your chest. Depending on the cause, it may be treated with ice, rest, medicines, and avoiding activities that cause pain. Contact a health care provider if you have a fever, worsening chest pain, or new symptoms. Get help right away if you feel light-headed or you develop shortness of breath. These symptoms maybe an emergency. This information is not intended to replace advice given to you by your health care provider. Make sure you discuss any questions you have with your health care provider. Document Released: 05/11/2006 Document Revised: 11/11/2018 Document Reviewed: 11/11/2018 [employer] Patient Education [employer]. Follow Up Care 01/09/2022 12:14:58 With:Kirk Abbott Address: [address] [place] [id number] [facility] (1) When:1 to 2 weeks Comments:Call for followup appointmentCall physician if symptoms worsen With:Breanna Gu Address:Unknown When:7 to 10 days Comments:Call for followup appointmentCall physician if symptoms worsenGood afternoon Addie! You were admitted to our hospital due to chest pain. It was a pleasure taking care of you during your hospital stay. Your pain is reproducible on physical exam which is consistent with musculoskeletal pain. You do have multiple risk factors and we are recommending a stress test. You have a stress test ordered in the system. Please call central scheduling to schedule a 2-day stress test. Reversal Print Inspector evaluated you during your hospital stay and they cleared you for discharge. Please follow-up with carton folder after stress test is complete. Please do not delay the stress test any further. Keep taking the medications as you are taking as we are not changing anything.Dr. [facility]onsp[facility] at [facility] Evaluation + Plan noteExtracted from: Title:Consult Note Author:Milena STEVENS, Hever Hsu Date:01/09/22 Atypical chest pain prior hi story of VTE but none seen on this admission. Follow-up as outpatient for stress test 1. Chest pain (R07.9: Chest pain, unspecified) 2. Hypomagnesemia (E83.42: Hypomagnesemia) 3. Bipolar disorder (F31.9: Bipolar disorder, unspecified) 4. Diabetes (E11.9: Type 2 diabetes mellitus without complications) 5. Fibromyalgia (M79.7: Fibromyalgia) 6. Hyperlipemia (E78.5: Hyperlipidemia, unspecified) 7. Morbid obesity (E66.01: Morbid (severe) obesity due to excess calories) 8. Pacemaker (Z95.0: Presence of cardiac pacemaker) 9. DVT prophylaxis (Z29.9: Encounter for prophylactic measures, unspecified) Extracted from: Title:Discharge Note Author:Juan GONZALEZ MD te:01/09/22 Discharged to - Home with family care Discharge Status: Improved Discharge Instructions Given: To patient Discharge disposition: Home Prescriptions reviewed with Patient 25 Minute in discharge time Discharge Diet(s): Calorie Controlled- 1800 Calorie Diet, Low Sodium- 2000 mg (01/09/22 17:01:00) Prescriptions Albuterol (Eqv-ProAir HFA) 90 mcg/inh inhalation aerosol, 2 puff(s), Inhalation, q4hr, PRN, 1 refills aspirin 81 mg Chew Tab, 81 mg= 1 tab(s), Chewed, Daily, 3 refills Bromfed DM oral syrup, 5 mL, Oral, QID, PRN meclizine 25 mg Tab, 25 mg= 1 tab(s), Oral, TID, PRN MiraLax oral powder for reconstitution, 17 gm, Oral, Daily quetiapine 400 mg oral tablet, 800 mg= 2 tab(s), Oral, Bedtime Zanaflex 4 mg Tab, 12 mg= 3 tab(s), Oral, Once a day (at bedtime), 1 refills Zofran 4 mg Tab, 4 mg= 1 tab(s), Oral, q8hr, PRN Home busPIRone 30 mg oral tablet, 30 mg= 1 tab(s), Oral, BID divalproex sodium 500 mg ER Tab, 500 mg= 1 tab(s), Oral, BID insulin lispro 100 units/mL injectable solution, 5 unit(s), SubCutaneous, TIDAC levETIRAcetam 500 mg oral tablet, dispersible, 500 mg= 1 tab(s), BID Lyrica 300 mg Cap, 300 mg= 1 cap(s), Oral, Bedtime metformin 1000 mg Tab, 1000 mg= 1 tab(s), Oral, BID oxybutynin 5 mg Tab, 5 mg= 1 tab(s), Oral, BID, PRN venlafaxine 150 mg Cap-ER, 150 mg= 1 cap(s), Oral, Daily With When Contact Information Kirk Abbott Within 1 to [address] [place] [address] [place] [address] [facility] (1) Additional Instructions: Call for followup appointment Call physician if symptoms worsen Breanna Gu Within 7 to 10 days Additional Instructions: Call for followup appointment Call physician if symptoms worsen Good afternoon Addie! You were admitted to our hospital due to chest pain. It was a pleasure taking care of you during your hospital stay. Your pain is reproducible on physical exam which is consistent with musculoskeletal pain. You do have multiple risk factors and we are recommending a stress test. You have a stress test ordered in the system. Please call central scheduling to schedule a 2-day stress test. Reversal Print Inspector evaluated you during your hospital stay and they cleared you for discharge. Please follow-up with carton folder after stress test is complete. Please do not delay the stress test any further. Keep taking the medications as you are taking as we are not changing anything. Dr. Juan Gonzalez Hospitalist at [facility] Musculoskeletal Pain Chest Wall Pain Extracted from: Title:Admission H & P Author:Juan GONZALEZ MD ate:01/09/22 46-year-old female with past medical history of morbid obesity, bipolar disorder, insulin-dependent diabetes mellitus with insulin pump, hypothyroidism, SEMAJ, history of cardiac arrest status post AICD placement, history of congestive heart failure presented to emergency department due to chest pain that woke her up at 9:30 AM. 1. Chest pain (R07.9: Chest pain, unspecified) Pain is reproducible on physical exam For set of cardiac enzymes along with EKG is unremarkable We will continue to trend cardiac enzymes Patient does have multiple risk factor She is scheduled for outpatient stress test but has not made an appointment yet Cardiology consultation Telemetry Aspirin daily Will confirm home medications and continue with that 2. Hypomagnesemia (E83.42: Hypomagnesemia) Repleted in ER Repeat BMP and magnesium level tomorrow 3. Bipolar disorder (F31.9: Bipolar disorder, unspecified) Continue with Latuda, venlafaxine was at home doses verified 4. Diabetes (E11.9: Type 2 diabetes mellitus without complications) Patient has home insulin pump We will continue with that Patient does not need refill in next 24 hours 5. Fibromyalgia (M79.7: Fibromyalgia) Lyrica 6. Hyperlipemia (E78.5: Hyperlipidemia, unspecified) We will check lipid panel in the morning 7. Morbid obesity (E66.01: Morbid (severe) obesity due to excess calories) Lifestyle modification 8. Pacemaker (Z95.0: Presence of cardiac pacemaker) AICD and defibrillator in place 9. DVT prophylaxis (Z29.9: Encounter for prophylactic measures, unspecified) Heparin twice a day Orders: acetaminophen, 650 mg = 2 tab(s), Tab, Oral, q6hr PRN Pain, Routine, Start date 01/09/22 14:30:00 EDT, 01/09/22 14:30:00 EDT Al hydroxide/Mg hydroxide/simethicone, 30 mL, Susp-Oral, Oral, q6hr PRN Indigestion, STAT, Start date 01/09/22 14:30:00 EDT aspirin, 81 mg = 1 tab(s), Tab-EC, Oral, Daily, Routine, Start date 01/10/22 9:00:00 EDT, 01/09/22 15:05:00 EDT heparin, 5,000 unit(s) = 1 mL, Injection, SubCutaneous, BID, Routine, Start date 01/09/22 21:00:00 EDT, 01/09/22 14:30:00 EDT nitroglycerin, 0.4 mg = 1 tab(s), Tab, SubLingual, q5min PRN Chest pain for 3 dose(s), Stop date Limited # of times, Routine, Start date 01/09/22 14:30:00 EDT, 08/18/22 14:30:00 EDT ondansetron, 4 mg = 2 mL, Injection, IV Push, q6hr PRN Nausea, Routine, Start date 01/09/22 14:30:00 EDT, 01/09/22 14:30:00 EDT Patient Specific Meds, Patient Own Insulin for Insulin Pump Cartridge, Normal Patient Dose, Each, SubCutaneous, As Directed, STAT, Start date 01/09/22 14:52:00 EDT Ambulate with Assistance Basic Metabolic Panel Below the Knee Intermittent Pneumatic Compression Device Cardiac Monitoring Chest Pain, AMI Quality Measures Communication Order Communication Order Communication Order Communication Order Communication Order Communication Order Communication Order Communication Order Communication Order Consult to Cardiology Evaluate Need For Continued Telemetry Intake and Output Lipid Panel Magnesium Level Notify Provider Vital Signs Notify Provider Vital Signs Patient to check entire insulin pump for patency Place in Status Precautions Pulse Oximetry Regular Diet Resuscitation Status - Full Routine Capillary Glucose POC Routine Capillary Glucose POC Vital Signs Weight Plan discussed with patient at bedside in ER bed 7 This report was transcribed using voice recognition software. Every effort was made to ensure accuracy, however, inadvertently computerized senior database engineer mistakes may be present. Dr. Juan Gonzalez Hospitalist at [facility] Extracted from: Title:ED Note Author:Jose Miguel Burciaga, Bridgett Velasquez te:01/09/22 1. Chest pain (R07.9: Chest pain, unspecified) 2. Hypomagnesemia (E83.42: Hypomagnesemia) Orders: magnesium sulfate + Generic Diluent 100 mL, 4 gram = 100 mL, IV Piggyback, Once, Stop date 01/09/22 13:58:00 EDT, STAT, Start date 01/09/22 13:58:00 EDT, 25 mL/hr, Infuse over 4 hour(s), 01/09/22 13:58:00 EDT morphine, 2 mg = 1 mL, Injection, IV Push, Once, Stop date 01/09/22 14:01:00 EDT, STAT, Start date 01/09/22 14:01:00 EDT, 01/09/22 14:01:00 EDT Sodium Chloride 0.9% intravenous solution, 1,000 mL, IV, Stop date 01/09/22 14:22:00 EDT, Start date 01/09/22 14:22:00 EDT Sodium Chloride 0.9% intravenous solution, Soln-IV, Misc, Once, Stop date 01/09/22 14:09:27 EDT, Physician Stop, 01/09/22 14:09:27 EDT Automated Diff B-Type Natriuretic Peptide Basic Metabolic Panel CBC w/ Auto Diff D-Dimer ECG 12 Lead Adult ED Cardiac Monitoring ED Physician consult Hospitalist for continued care eGFR Hepatic Function Panel Magnesium Level Oxygen Saturation Oxygen Therapy PT & PTT Saline Lock Insert Troponin 0 Hr. Troponin 3 Hr. Troponin 6 Hr. Troponin 9 Hr. UA With Cult Reflex XR Chest Single View Future Scheduled Tests Laboratory* Fecal WBC Lactoferrin 10/30/21 * HgbA1c 07/29/21 * Enteric Panel by PCR 10/30/21 * Thyroid Stimulating Hormone 07/29/21 Radiology* NM Myocardial Spect Rest/Stress 1 Day 12/16/21 * Echo Transthoracic Complete 09/03/21 [facility]07-21-2022 Hospital Discharge instructions Patient Education 12/12/2021 17:14:21 Self-Destructive Behavior Self-Destructive Behavior Self-destructive behavior, or dysregulated behavior, refers to behaviors that can harm or injure the person who performs them. Self-destructive behavior is often used as a way to cope and deal with painful emotions and stress. It is often habit-forming and difficult to control without help. Certainself- destructive behaviors can result in serious injury or . What are signs of self-destructive behavior? Signs of self-destructive behavior include: Hurting yourself (self-injury) to release tension or lessen emotional pain. This includes banging your head and cutting, scratching, or burning yourself. Eating very little or not eating at all (anorexia), eating and making yourself vomit (purging), overeating in a short time period (binge eating), and using medicine such as laxatives and water pills to lose weight. Drinking too much alcohol. Abusing drugs. Going on shopping sprees, spending recklessly, or gambling until you go into debt. Any type of addictive behavior, including gambling and shoplifting. Not setting healthy limits. This includes denying yourself proper rest and food in order to meet the needs of others. People often feel relief or pleasure while doing these things. However, they can be harmful if theyare done over a long period of time. What causes self-destructive behavior? The underlying causes of self-destructive behavior may include: Current or past trauma or abuse. Mental health conditions, such as depression or anxiety. Difficulty managing stress. Difficulty coping with emotions. This may be due to inability to identify or talk about one's feelings or problems. Self-destructive behavior may also occur with some medical conditions such as: Epilepsy. Long-term (chronic) pain. Sleep disorders. Traumatic brain injury. What should I do to manage self-destructive behavior? Talk with your health care provider. He or she may refer you to a mental health counselor for talk therapy. Work with a counselor to help you recognize the source of your problems, sort out your feelings, and find strategies to cope with stress and your feelings. Avoid alcohol and drugs. Try to distract yourself with other activities until you are calm and are able to seek help. These include chewing gum, exercising, cleaning, or snapping rubber bands. Find healthy coping strategies that work for you, such as: ?Exercise. ?Spending time in nature. ?Journaling. ?Relaxation methods, such as deep breathing or yoga. Learn to identify and avoid the things that trigger your self-destructive behavior. Get involved in a local support group. Contact a health care provider if: You become ill or you get injured as a result of self-destructive behavior. You are ready to seek treatment for addiction. You need help finding a support group. Get help right away if: Your behavior interferes with daily activities, such as work or school. You have thoughts of hurting yourself or others. If you ever feel like you may hurt yourself or others, or have thoughts about taking your own life,get help right away. You can go to your nearest emergency department or call: Your local emergency services (911 in the [place] A suicide crisis helpline, such as the National Suicide Prevention Lifeline at . Thisis open 24 hours a day. Summary Self-destructive behavior includes behaviors, such as cutting, eating disorders, drug or alcohol abuse, and gambling. These may feel good in the moment, but can be harmful over time. Self-destructive behavior is often used as a way to deal with painful emotions and stress. It is often habit-forming and difficult to control without help. See your health care provider or counselor if you have thoughts of, or have been injured by, self-destructive behavior. He or she will help you recognize the source of your problems, sort out your feelings, and get the help you need. This information is not intended to replace advice given to you by your health care provider. Make sure you discuss any questions you have with your health care provider. Document Released: 06/18/2005 Document Revised: 04/23/2018 Document Reviewed: 08/06/2017 [employer] Patient Education 2020 [employer]. 12/12/2021 17:14:19 BMI for Adults BMI for Adults Body mass index (BMI) is a number that is calculated from a person's weight and height. BMI may help to estimate how much of a person's weight is composed of fat. BMI can help identify those who may be at higher risk for certain medical problems. How is BMI used with adults? BMI is used as a screening tool to identify possible weight problems. It is used to check whether aperson is obese, overweight, healthy weight, or underweight. How is BMI calculated? BMI measures your weight and compares it to your height. This can be done either in [place] ([place] or metric measurements. Note that charts are available to help you find your BMI quickly and easily without having to do these calculations yourself. To calculate your BMI in [place] ([place] measurements, your health care provider will: 1.Measure your weight in pounds (lb). 2.Multiply the number of pounds by 703. For example, for a person who weighs 180 lb, multiply that number by 703, which equals [phone]. 3.Measure your height in inches (in). Then multiply that number by itself to get a measurement called inches squared. For example, for a person who is 70 in tall, the inches squared measurement is 70 in x 70 in, which equals 4900 inches squared. 4.Divide the total from Step 2 (number of lb x 703) by the total from Step 3 (inches squared): 126,540 4900 = 25.8. This is your BMI. To calculate your BMI in metric measurements, your health care provider will: 1.Measure your weight in kilograms (kg). 2.Measure your height in meters (m). Then multiply that number by itself to get a measurement called meters squared. For example, for a person who is 1.75 m tall, the meters squared measurement is 1.75 m x 1.75 m, which is equal to 3.1 meters squared. 3.Divide the number of kilograms (your weight) by the meters squared number. In this example: 70 3.1 = 22.6. This is your BMI. How is BMI interpreted? To interpret your results, your health care provider will use BMI charts to identify whether you are underweight, normal weight, overweight, or obese. The following guidelines will be used: Underweight: BMI less than 18.5. Normal weight: BMI between 18.5 and 24.9. Overweight: BMI between 25 and 29.9. Obese: BMI of 30 and above. Please note: Weight includes both fat and muscle, so someone with a muscular build, such as an athlete, may havea BMI that is higher than 24.9. In cases like these, BMI is not an accurate measure of body fat. To determine if excess body fat is the cause of a BMI of 25 or higher, further assessments may needto be done by a health care provider. BMI is usually interpreted in the same way for men and women. Why is BMI a useful tool? BMI is useful in two ways: Identifying a weight problem that may be related to a medical condition, or that may increase the risk for medical problems. Promoting lifestyle and diet changes in order to reach a healthy weight. Summary Body mass index (BMI) is a number that is calculated from a person's weight and height. BMI may help to estimate how much of a person's weight is composed of fat. BMI can help identify those who may be at higher risk for certain medical problems. BMI can be measured using Japanese measurements or metric measurements. To interpret your results, your health care provider will use BMI charts to identify whether you are underweight, normal weight, overweight, or obese. This information is not intended to replace advice given to you by your health care provider. Make sure you discuss any questions you have with your health care provider. Document Released: 01/20/2005 Document Revised: 04/23/2018 Document Reviewed: 03/24/2018 [employer] Patient Education 2020 [employer]. 12/12/2021 17:04:18 Lactose Intolerance, Adult Lactose Intolerance, Adult Lactose is a natural sugar that is found in dairy milk and dairy products such as cheese and yogurt. Lactose is digested by lactase, a protein (enzyme) in your small intestine. Some people do not produce enough lactase to digest lactose. This is called lactose intolerance. Lactose intolerance is different from milk allergy, which is a more serious reaction to the protein in milk. What are the causes? Causes of lactose intolerance may include: Normal aging. The ability to produce lactase may lessen with age, causing lactose intolerance over time. Being born without the ability to make lactase. Digestive diseases such as gastroenteritis or inflammatory bowel disease (IBD). Surgery or injury to your small intestine. Infection in your intestines. Certain antibiotic medicines and cancer treatments. What are the signs or symptoms? Lactose intolerance can cause discomfort within 30 minutes to 2 hours after you eat or drink something that contains lactose. Symptoms may include: Nausea. Diarrhea. Cramps or pain in the abdomen. A full, tight, or painful feeling in the abdomen (bloating). Gas. How is this diagnosed? This condition may be diagnosed based on: Your symptoms and medical history. Lactose tolerance test. This test involves drinking a lactose solution and then having blood tests to measure the amount of glucose in your blood. If your blood glucose level does not go up, it meansyour body is not able to digest the lactose. Lactose breath test (hydrogen breath test). This test involves drinking a lactose solution and thenexhaling into a type of bag while you digest the solution. Having a lot of hydrogen in your breath can be a sign of lactose intolerance. Stool acidity test. This involves drinking a lactose solution and then having your stool samples tested for bacteria. Having a lot of bacteria causes stool to be considered acidic, which is a sign oflactose intolerance. How is this treated? There is no treatment to improve your body's ability to produce lactase. However, you can manage your symptoms at home by: Limiting or avoiding dairy milk, dairy products, and other sources of lactose. Taking lactase tablets when you eat milk products. Lactase tablets are hzeq-psv-fuhjjqo medicines that help to improve lactose digestion. You may also add lactase drops to regular milk. Adjusting your diet, such as drinking lactose-free milk. Lactose tolerance varies from person to person. Some people may be able to eat or drink small amounts of products that contain lactose, and other people may need to avoid all foods and drinks that contain lactose. Talk with your health care provider about what treatment is best for you. Follow these instructions at home: Limit or avoid foods, beverages, and medicines that contain lactose, as told by your health care provider. Keep track of which foods, beverages, or medicines cause symptoms so you can decide what to avoid in the future. Read food and medicine labels carefully. Avoid products that contain: ?Lactose. ?Milk solids. ?Casein. ?Whey. Take vqnj-wki-hhejcgq and prescription medicines (including lactase tablets) only as told by your health care provider. If you stop eating and drinking dairy products (eliminate dairy from your diet), make sure to get enough protein, calcium, and vitamin D from other foods. Work with your health care provider or a diet and nutritional assistant (dietitian) to make sure you get enough of those nutrients. Choose a milk substitute that is fortified with calcium and vitamin D. ?Soy milk contains high-quality protein. ?Milks that are made from nuts or grains (such as almond milk and rice milk) contain very small amounts of protein. Keep all follow-up visits as told by your health care provider. This is important. Contact a health care provider if: You have no relief from your symptoms after you have eliminated milk products and other sources of lactose. Get help right away if: You have blood in your stool. You have severe abdomen (abdominal) pain. Summary Lactose is a natural sugar that is found in dairy milk and dairy products such as cheese and yogurt. Lactose is digested by lactase, which is a protein (enzyme) in the small intestine. Some people do not produce enough lactase to digest lactose. This is called lactose intolerance. Lactose intolerance can cause discomfort within 30 minutes to 2 hours after you eat or drink something that contains lactose. Limit or avoid foods, beverages, and medicines that contain lactose, as told by your health care provider. This information is not intended to replace advice given to you by your health care provider. Make sure you discuss any questions you have with your health care provider. Document Released: 05/11/2006 Document Revised: 04/23/2018 Document Reviewed: 12/25/2017 [employer] Patient Education 2020 [employer]. Follow Up Care 12/12/2021 12:11:17 With:Breanna Gu CNP Address: When: only if needed [facility] 07-17-2022 Hospital Discharge instructions Patient Education 12/08/2021 14:29:40 Social Anxiety Disorder, Adult Social Anxiety Disorder, Adult Social anxiety disorder (SAD), previously called social phobia, is a mental health condition. People with SAD often feel nervous, afraid, or embarrassed when they are around other people in social situations. They worry that other people are judging or criticizing them for how they look, what they say, or how they act. SAD involves more than just feeling shy or self-conscious at times. It can cause severe emotional distress. It can interfere with activities of daily life. SAD also may lead to alcohol or drug use, and even suicide. SAD is a common mental health condition. It can develop at any time, but it usually starts in the teenage years. What are the causes? The cause of this condition is not known. It may involve genes that are passed through families. Stressful events may trigger anxiety. This disorder is also associated with an overactive amygdala. The amygdala is the part of the brain that triggers your response to strong feelings, such as fear. What increases the risk? This condition is more likely to develop in: People who have a family history of anxiety disorders. Women. People who have a physical or behavioral condition that makes them feel self- conscious or nervous, such as a stutter or a long-term (chronic) disease. What are the signs or symptoms? The main symptom of this condition is fear of embarrassment caused by being criticized or judged insocial situations. You may be afraid to: Speak in public. Go shopping. Use a public bathroom. Eat at a restaurant. Go to work. Interact with people you do not know. Extreme fear and anxiety may cause physical symptoms, including: Blushing. A fast heartbeat. Sweating. Shaky hands or voice. Confusion. Light-headedness. Upset stomach, diarrhea, or vomiting. Shortness of breath. How is this diagnosed? This condition is diagnosed based on your history, symptoms, and behavior in social situations. Youmay be diagnosed with this type of anxiety if your symptoms have lasted for more than 6 months and have been present on more days than not. Your health care provider may ask you about your use of alcohol, drugs, and prescription medicines.He or she may also refer you to a mental health specialist for further evaluation or treatment. How is this treated? Treatment for this condition may include: Cognitive behavioral therapy (CBT). This type of talk therapy helps you learn to replace negative thoughts and behaviors with positive ones. This may include learning how to use self-calming skills and other methods of managing your anxiety. Exposure therapy. You will be exposed to social situations that cause you fear. The treatment starts with practicing self-calming in situations that cause you low levels of fear. Over time, you will progress by sustaining self-calming and managing harder situations. Antidepressant medicines. These medicines may be used by themselves or in addition to other therapies. Biofeedback. This process trains you to manage your body's response (physiological response) through breathing techniques and relaxation methods. You will work with a therapist while machines are used to monitor your physical symptoms. Techniques for relaxation and managing anxiety. These include deep breathing, self-talk, meditation, visual imagery, muscle relaxation, music therapy, and yoga. These techniques are often used with other therapies to keep you calm in situations that cause you anxiety. These treatments are often used in combination. Follow these instructions at home: Alcohol use If you drink alcohol: Limit how much you use to: ?0 1 drink a day for non women. ?0 2 drinks a day for men. Be aware of how much alcohol is in your drink. In the [place] one drink equals one 12 oz bottle of beer (355 mL), one 5 oz glass of wine (148 mL), or one 1 oz glass of hard liquor (44 mL). General instructions Take flyi-xuz-heiuxje and prescription medicines only as told by your health care provider. Practice techniques for relaxation and managing anxiety at times you are not challenged by social anxiety. Return to social activities using techniques you have learned, as you feel ready to do so. Avoid caffeine and certain flsz-rym-rhhdgjw cold medicines. These may make you feel worse. Ask yourpharmacists which medicines to avoid. Keep all follow-up visits as told by your health care provider. This is important. Where to find more information National [place] on Mental Illness (AVA): https://www.ava.org Social Anxiety Association: https://socialphobia.org Mental Health [place] (MHA): https://www.mhanational.org Anxiety and Depression Association of [place] (ADAA): https://adaa.org/ Contact a health care provider if: Your symptoms do not improve or get worse. You have signs of depression, such as: ?Persistent sadness or moodiness. ?Loss of enjoyment in activities that used to bring you haider. ?Change in weight or eating. ?Changes in sleeping habits. ?Avoiding friends or family members more than usual. ?Loss of energy for normal tasks. ?Feeling guilty or worthless. You become more isolated than you normally are. You find it more and more difficult to speak or interact with others. You are using drugs. You are drinking more alcohol than usual. Get help right away if: You harm yourself. You have suicidal thoughts. If you ever feel like you may hurt yourself or others, or have thoughts about taking your own life,get help right away. You can go to your nearest emergency department or call: Your local emergency services (911 in the [place] A suicide crisis helpline, such as the National Suicide Prevention Lifeline at . Thisis open 24 hours a day. Summary Social anxiety disorder (SAD) may cause you to feel nervous, afraid, or embarrassed when you are around other people in social situations. SAD is a common mental disorder. It can develop at any time, but it usually starts in the teenage years. Treatment includes talk therapy, exposure therapy, medicines, biofeedback, and relaxation techniques. It can involve a combination of treatments. This information is not intended to replace advice given to you by your health care provider. Make sure you discuss any questions you have with your health care provider. Document Released: 04/09/2006 Document Revised: 10/12/2019 Document Reviewed: 10/12/2019 [employer] Patient Education 2020 [employer]. 12/08/2021 14:29:40 Seizure, Adult Seizure, Adult A seizure is a sudden burst of abnormal electrical activity in the brain. Seizures usually last from 30 seconds to 2 minutes. The abnormal activity temporarily interrupts normal brain function. A seizure can cause many different symptoms depending on where in the brain it starts. What are the causes? Common causes of this condition include: Fever or infection. Brain abnormality, injury, bleeding, or tumor. Low blood sugar. Metabolic disorders or other conditions that are passed from parent to child (are inherited). Reaction to a substance, such as a drug or a medicine, or suddenly stopping the use of a substance (withdrawal). Stroke. Developmental disorders such as autism or cerebral palsy. In some cases, the cause of this condition may not be known. Some people who have a seizure never have another one. Seizures usually do not cause brain damage or permanent problems unless they are prolonged. A person who has repeated seizures over time without a clear cause has a condition called ep ilepsy. What increases the risk? You are more likely to develop this condition if you have: A family history of epilepsy. Had a tonic-clonic seizure in the past. This is a type of seizure that involves whole-body contraction of muscles and a loss of consciousness. Autism, cerebral palsy, or other brain disorders. A history of head trauma, lack of oxygen at , or strokes. What are the signs or symptoms? There are many different types of seizures. The symptoms of a seizure vary depending on the type ofseizure you have. Examples of symptoms during a seizure include: Uncontrollable shaking (convulsions). Stiffening of the body. Loss of consciousness. Head nodding. Staring. Not responding to sound or touch. Loss of bladder or bowel control. Some people have symptoms right before a seizure happens (aura) and right after a seizure happens (postictal). Symptoms before a seizure may include: Fear or anxiety. Nausea. Feeling like the room is spinning (vertigo). A feeling of having seen or heard something before (d j vu). Odd tastes or smells. Changes in vision, such as seeing flashing lights or spots. Symptoms after a seizure may include: Confusion. Sleepiness. Headache. Weakness on one side of the body. How is this diagnosed? This condition may be diagnosed based on: A description of your symptoms. Video of your seizures can be helpful. Your medical history. A physical exam. You may also have tests, including: Blood tests. CT scan. MRI. Electroencephalogram (EEG). This test measures electrical activity in the brain. An EEG can predictwhether seizures will return (recur). A spinal tap (also called a lumbar puncture). This is the removal and testing of fluid that surrounds the brain and spinal cord. How is this treated? Most seizures will stop on their own in under 5 minutes, and no treatment is needed. Seizures that last longer than 5 minutes will usually need treatment. Treatment can include: Medicines given through an IV. Avoiding known triggers, such as medicines that you take for another condition. Medicines to treat epilepsy (antiepileptics), if epilepsy caused your seizures. Surgery to stop seizures, if you have epilepsy that does not respond to medicines. Follow these instructions at home: Medicines Take bjir-fay-wtzaiix and prescription medicines only as told by your health care provider. Avoid any substances that may prevent your medicine from working properly, such as alcohol. Activity Do not drive, swim, or do any other activities that would be dangerous if you had another seizure. Wait until your health care provider says it is safe to do them. If you live in the [place] check with your local DMV (department of [place]) to find out aboutlocal driving laws. Each state has specific rules about when you can legally return to driving. Get enough rest. Lack of sleep can make seizures more likely to occur. Educating others Teach friends and family what to do if you have a seizure. They should: Lay you on the ground to prevent a fall. Cushion your head and body. Loosen any tight clothing around your neck. Turn you on your side. If vomiting occurs, this helps keep your airway clear. Not hold you down. Holding you down will not stop the seizure. Not put anything into your mouth. Know whether or not you need emergency care. For example, they should get help right away if you have a seizure that lasts longer than 5 minutes or have several seizures in a row. Stay with you until you recover. General instructions Contact your health care provider each time you have a seizure. Avoid anything that has ever triggered a seizure for you. Keep a seizure diary. Record what you remember about each seizure, especially anything that might have triggered the seizure. Keep all follow-up visits as told by your health care provider. This is important. Contact a health care provider if: You have another seizure. You have seizures more often. Your seizure symptoms change. You continue to have seizures with treatment. You have symptoms of an infection or illness. This might increase your risk of having a seizure. Get help right away if: You have a seizure that: ?Lasts longer than 5 minutes. ?Is different than previous seizures. ?Leaves you unable to speak or use a part of your body. ?Makes it harder to breathe. You have: ?A seizure after a head injury. ?Multiple seizures in a row. ?Confusion or a severe headache right after a seizure. You do not wake up immediately after a seizure. You injure yourself during a seizure. These symptoms may represent a serious problem that is an emergency. Do not wait to see if the symptoms will go away. Get medical help right away. Call your local emergency services (911 in the [place] Do not drive yourself to the hospital. Summary Seizures are caused by abnormal electrical activity in the brain. The activity disrupts normal brain function and can cause various symptoms, such as convulsions, abnormal movements, or a change in consciousness. There are many causes of seizures, including illnesses, medicines, genetic conditions, head injuries, strokes, tumors, substance abuse, or substance withdrawal. Most seizures will stop on their own in under 5 minutes. Seizures that last longer than 5 minutes are a medical emergency and require immediate treatment. Many medicines are used to treat seizures. Take zzmz-ich-olrcoiq and prescription medicines only astold by your health care provider. This information is not intended to replace advice given to you by your health care provider. Make sure you discuss any questions you have with your health care provider. Document Released: 05/08/2001 Document Revised: 07/29/2019 Document Reviewed: 07/29/2019 [employer] Patient Education 2020 [employer]. Follow Up Care 12/08/2021 09:53:20 With:Polo Bo Address: [address] [place] [address]- Business (1) When:12/11/2021 13:49:13 Comments:If you do not have a neurologist, follow-up with Dr. Bo. With:Breanna Gu Address: [address] [place] [address] [phone] Business (1) When:12/11/2021 13:48:53 Comments:Follow-up with your primary care provider in 3 to 5 days. If symptoms worsen, do not improve, or new symptoms arise please report back to emergency department for further evaluation. Follow-up with your neurologist immediately. [facility]06-15-2022 Evaluation + Plan noteExtracted from: Title:Discharge Note Author:Evelyn STEVENS, Sergio Long ate:11/06/21 Stable Discharge To, Anticipated II - Home independently Discharge Diet(s): Calorie Controlled- 1800 Calorie Diet (11/06/21 11:19:00) Prescriptions Albuterol (Eqv-ProAir HFA) 90 mcg/inh inhalation aerosol, 2 puff(s), Inhalation, q4hr, PRN amitriptyline 25 mg Tab, 25 mg= 1 tab(s), Oral, Once a day (at bedtime) aspirin 81 mg Chew Tab, 81 mg= 1 tab(s), Chewed, Daily, 3 refills atorvastatin 20 mg Tab, 20 mg= 1 tab(s), Oral, Daily Bromfed DM oral syrup, 5 mL, Oral, QID, PRN cefdinir 300 mg Cap, 300 mg= 1 cap(s), Oral, q12hr Diabetic supplies, 0 Handicap placard, See Instructions losartan 25 mg Tab, 25 mg= 1 tab(s), Oral, Daily meclizine 25 mg Tab, 25 mg= 1 tab(s), Oral, TID, PRN omeprazole 40 mg Cap-DR, 40 mg= 1 cap(s), Oral, Daily Synthroid 75 mcg Tab, 75 mcg= 1 tab(s), Oral, Daily Test Strips and Lancets, See Instructions, 1 refills Zanaflex 4 mg Tab, 12 mg= 3 tab(s), Oral, Once a day (at bedtime) Zofran 4 mg Tab, 4 mg= 1 tab(s), Oral, q8hr, PRN Home busPIRone 30 mg oral tablet, 30 mg= 1 tab(s), Oral, BID divalproex sodium 500 mg ER Tab, 500 mg= 1 tab(s), Oral, BID insulin lispro 100 units/mL injectable solution, 5 unit(s), SubCutaneous, TIDAC Latuda 20 mg oral tablet, 20 mg= 1 tab(s), Oral, Daily levETIRAcetam 500 mg oral tablet, dispersible, 500 mg= 1 tab(s), Daily Lyrica 300 mg Cap, 300 mg= 1 cap(s), Oral, Daily metformin 1000 mg Tab, 1000 mg= 1 tab(s), Oral, BID oxybutynin 5 mg Tab, 5 mg= 1 tab(s), Oral, BID, PRN quetiapine 400 mg oral tablet, 800 mg= 2 tab(s), Oral, Bedtime venlafaxine 150 mg Cap-ER, 150 mg= 1 cap(s), Oral, Daily With When Contact Information Breannaafia Herediaell In 0 days Additional Instructions: Extracted from: Title:Admission H & P Author:Evelyn STEVENS, mad Date:11/04/21 UTI -Failed out patient treatment, will treat w/IV antibiotics. We had extensive conversation about the importance of hygiene particularly after defecating, needing to wipe front to back and not back to front, also needing to wash with water and not pat drying -Previous culture sensitive to Levofloxacin -IV Levofloxacin 750mg qd Groin pain -Likely 2/2 UTI -CT scan w/out acute pathology -Pain RX DM -Diabetic diet -Sliding scale -Long acting -Monitor Obesity -Patient's BMI >30. Lifestyle modifications encouraged. Obesity is a pro- inflammatory state likely affecting above medical processes. Outpatient follow up. HTN -Chronic, no chest pain, will resume home medications GERD -Chronic, no evidence of GI bleed, resume home medications Bipolar -Chronic, suicidal ideation, homicidal ideation, suicidal plan or homicidal plan we will continue home meds SEMAJ -Chronic, sleep machine HLD: Chronic continue home medications Hypothyroid: Continue w/home medications Chronic Medical Conditions Med Rec resume home medications Code: Full Diet: DM diet DVT prophylaxis: SCDs Admit: InPatient, likely >2 midnight stay Plan: Plan was discussed with patient and family (if applicable) at bedside Orders: glucose, 50 mL, Soln-IV, IV Push, Once PRN Blood glucose, STAT, Start date 11/04/21 17:51:00 EDT insulin lispro, 0-10 Units, Injection-Insulin, SubCutaneous, QIDACHS, Routine, Start date 11/04/21 21:00:00 EDT levofloxacin + Dextrose 5% in Water intravenous solution 150 mL, 750 mg = 150 mL, Soln-IV, IV Piggyback, Bedtime, Routine, Start date 11/04/21 21:00:00 EDT, 150 mL/hr, Infuse over 1 hour(s) Ambulate with Assistance Communication Order Physician to Nursing Continuous Positive Airway Pressure Diabetic/Calorie Control Diet Elevate Head of Bed Hypoglycemia Protocol Unresponsive Patient Place in Status Resuscitation Status - Full Routine Capillary Glucose POC Weight Extracted from: Title:ED Note Author:Jose Miguel Burciaga, Bridgett Velasquez te:11/04/21 1. Abdominal pain (R10.9: Un specified abdominal pain) 2. Urinary tract infection (N39.0: Urinary tract infection, site not specified) Orders: ceftriaxone + Sodium Chloride 0.9% intravenous solution 50 mL, 1,000 mg = 1 EA, IV Piggyback, Once, Stop date 11/04/21 13:24:00 EDT, STAT, Start date 11/04/21 13:24:00 EDT, 100 mL/hr, Infuse over 30 minute(s), 11/04/21 13:24:00 EDT morphine, 4 mg = 2 mL, Injection, IV Push, Once, Stop date 11/04/21 13:26:00 EDT, STAT, Start date 11/04/21 13:26:00 EDT, 11/04/21 13:26:00 EDT ondansetron, 4 mg = 2 mL, Injection, IV Push, Once, Stop date 11/04/21 12:18:00 EDT, STAT, Start date 11/04/21 12:18:00 EDT, 11/04/21 12:18:00 EDT Sodium Chloride 0.9% intravenous solution 1,000 mL, 1,000 mL, IV, 20 mL/hr, STAT, Start date 11/04/21 12:13:00 EDT, 50 hour(s), Total volume (mL): 1,000, 113 kg, 2.23, m2 Automated Diff Basic Metabolic Panel Beta hCG Quantitative CBC w/ Auto Diff CT Abdomen/Pelvis w/o Contrast eGFR Extra Blue Tube Extra SST Tube Hepatic Function Panel UA With Cult Reflex Urine Culture Future Appointments Appointment Date:11/14/2021 10:00:00 AM Scheduled Provider:Breanna Gu CNP Location:[facility] Appointment Type: ER/Hospital Follow Up Appointment Date:11/14/2021 12:15:00 PM Scheduled Provider: Location:[facility] Appointment Type:NM Myocard Spect Multi Rest/Stress-Res Appointment Date:11/14/2021 01:15:00 PM Scheduled Provider: Location:[facility] Appointment Type:NM Myocard Spect Multi Rest/Stress - R Appointment Date:11/14/2021 01:45:00 PM Scheduled Provider: Location:[facility] Appointment Type:NM Myocard Spect Multi Rest/Stress-Str Appointment Date:11/14/2021 02:45:00 PM Scheduled [facility] Type:NM Myocar Spect Multi Rest/Stress - St Appointment Date:11/20/2021 11:45:00 AM Scheduled Provider:Yuriy Fraser MD [facility]:Cardiology Follow Up () Appointment Date:01/01/2022 02:00:00 PM Scheduled Provider:Breanna Gu CNP Location:[facility] Appointment Type: Open Future Scheduled Tests Laboratory* Fecal WBC Lactoferrin 10/30/21 * HgbA1c 07/29/21 * Enteric Panel by PCR 10/30/21 * Thyroid Stimulating Hormone 07/29/21 Radiology* NM Myocardial Spect Rest/Stress 1 Day 11/14/21 * Echo Transthoracic Complete 09/03/21 [facility]06[facility]-2022 Hospital Discharge instructions Patient Education 11/06/2021 11:33:32 Urinary Tract Infection, Adult, Cdqn-[id number] Urinary Tract Infection, Adult A urinary tract infection (UTI) is an infection of any part of the urinary tract. The urinary tractincludes: The kidneys. The ureters. The bladder. The urethra. These organs make, store, and get rid of pee (urine) in the body. What are the causes? This is caused by germs (bacteria) in your genital area. These germs grow and cause swelling (inflammation) of your urinary tract. What increases the risk? You are more likely to develop this condition if: You have a small, thin tube (catheter) to drain pee. You cannot control when you pee or poop (incontinence). You are female, and: ?You use these methods to prevent : ?A medicine that kills sperm (spermicide). ?A device that blocks sperm (diaphragm). ?You have low levels of a female hormone (estrogen). ?You are . You have genes that add to your risk. You are sexually active. You take antibiotic medicines. You have trouble peeing because of: ?A prostate that is bigger than normal, if you are male. ?A blockage in the part of your body that drains pee from the bladder (urethra). ?A kidney stone. ?A nerve condition that affects your bladder (neurogenic bladder). ?Not getting enough to drink. ?Not peeing often enough. You have other conditions, such as: ?Diabetes. ?A weak disease-fighting system (immune system). ?Sickle cell disease. ?Gout. ?Injury of the spine. What are the signs or symptoms? Symptoms of this condition include: Needing to pee right away (urgently). Peeing often. Peeing small amounts often. Pain or burning when peeing. Blood in the pee. Pee that smells bad or not like normal. Trouble peeing. Pee that is cloudy. Fluid coming from the vagina, if you are female. Pain in the belly or lower back. Other symptoms include: Throwing up (vomiting). No urge to eat. Feeling mixed up (confused). Being tired and grouchy (irritable). A fever. Watery poop (diarrhea). How is this treated? This condition may be treated with: Antibiotic medicine. Other medicines. Drinking enough water. Follow these instructions at home: Medicines Take vgef-xvf-jgfdzhi and prescription medicines only as told by your doctor. If you were prescribed an antibiotic medicine, take it as told by your doctor. Do not stop taking it even if you start to feel better. General instructions Make sure you: ?Pee until your bladder is empty. ?Do not hold pee for a long time. ?Empty your bladder after sex. ?Wipe from front to back after pooping if you are a female. Use each tissue one time when you wipe. Drink enough fluid to keep your pee pale yellow. Keep all follow-up visits as told by your doctor. This is important. Contact a doctor if: You do not get better after 1 2 days. Your symptoms go away and then come back. Get help right away if: You have very bad back pain. You have very bad pain in your lower belly. You have a fever. You are sick to your stomach (nauseous). You are throwing up. Summary A urinary tract infection (UTI) is an infection of any part of the urinary tract. This condition is caused by germs in your genital area. There are many risk factors for a UTI. These include having a small, thin tube to drain pee and notbeing able to control when you pee or poop. Treatment includes antibiotic medicines for germs. Drink enough fluid to keep your pee pale yellow. This information is not intended to replace advice given to you by your health care provider. Make sure you discuss any questions you have with your health care provider. Document Released: 10/27/2008 Document Revised: 04/28/2019 Document Reviewed: 11/18/2018 [employer] Patient Education 2020 [employer]. 11/06/2021 11:33:32 Urinary Tract Infection, Adult, Zakq-gr-Wkie Urinary Tract Infection, Adult A urinary tract infection (UTI) is an infection of any part of the urinary tract. The urinary tractincludes: The kidneys. The ureters. The bladder. The urethra. These organs make, store, and get rid of pee (urine) in the body. What are the causes? This is caused by germs (bacteria) in your genital area. These germs grow and cause swelling (inflammation) of your urinary tract. What increases the risk? You are more likely to develop this condition if: You have a small, thin tube (catheter) to drain pee. You cannot control when you pee or poop (incontinence). You are female, and: ?You use these methods to prevent : ?A medicine that kills sperm (spermicide). ?A device that blocks sperm (diaphragm). ?You have low levels of a female hormone (estrogen). ?You are . You have genes that add to your risk. You are sexually active. You take antibiotic medicines. You have trouble peeing because of: ?A prostate that is bigger than normal, if you are male. ?A blockage in the part of your body that drains pee from the bladder (urethra). ?A kidney stone. ?A nerve condition that affects your bladder (neurogenic bladder). ?Not getting enough to drink. ?Not peeing often enough. You have other conditions, such as: ?Diabetes. ?A weak disease-fighting system (immune system). ?Sickle cell disease. ?Gout. ?Injury of the spine. What are the signs or symptoms? Symptoms of this condition include: Needing to pee right away (urgently). Peeing often. Peeing small amounts often. Pain or burning when peeing. Blood in the pee. Pee that smells bad or not like normal. Trouble peeing. Pee that is cloudy. Fluid coming from the vagina, if you are female. Pain in the belly or lower back. Other symptoms include: Throwing up (vomiting). No urge to eat. Feeling mixed up (confused). Being tired and grouchy (irritable). A fever. Watery poop (diarrhea). How is this treated? This condition may be treated with: Antibiotic medicine. Other medicines. Drinking enough water. Follow these instructions at home: Medicines Take ntjk-bso-burvwpp and prescription medicines only as told by your doctor. If you were prescribed an antibiotic medicine, take it as told by your doctor. Do not stop taking it even if you start to feel better. General instructions Make sure you: ?Pee until your bladder is empty. ?Do not hold pee for a long time. ?Empty your bladder after sex. ?Wipe from front to back after pooping if you are a female. Use each tissue one time when you wipe. Drink enough fluid to keep your pee pale yellow. Keep all follow-up visits as told by your doctor. This is important. Contact a doctor if: You do not get better after 1 2 days. Your symptoms go away and then come back. Get help right away if: You have very bad back pain. You have very bad pain in your lower belly. You have a fever. You are sick to your stomach (nauseous). You are throwing up. Summary A urinary tract infection (UTI) is an infection of any part of the urinary tract. This condition is caused by germs in your genital area. There are many risk factors for a UTI. These include having a small, thin tube to drain pee and notbeing able to control when you pee or poop. Treatment includes antibiotic medicines for germs. Drink enough fluid to keep your pee pale yellow. This information is not intended to replace advice given to you by your health care provider. Make sure you discuss any questions you have with your health care provider. Document Released: 10/27/2008 Document Revised: 04/28/2019 Document Reviewed: 11/18/2018 [employer] Patient Education 2020 [employer]. 11/06/2021 11:33:28 Antibiotic Medicine, Adult, Ykbs-hz-Sipx Antibiotic Medicine, Adult Antibiotic medicines treat infections caused by a type of germ called bacteria. They work by killing the bacteria that make you sick. When do I need to take antibiotics? You often need these medicines to treat bacterial infections, such as: A urinary tract infection (UTI). Strep throat. Meningitis. This affects the spinal cord and brain. A bad lung infection. You may start the medicines while your doctor waits for tests to come back. When the tests come back, your doctor may change or stop your medicine. When are antibiotics not needed? You do not need these medicines for most common illnesses, such as: A cold. The flu. A sore throat. Antibiotics are not always needed for all infections caused by bacteria. Do not ask for these medicines, or take them, when they are not needed. What are the risks of taking antibiotics? Most antibiotics can cause an infection called Clostridioides difficile (C. diff). This causes watery poop (diarrhea). Let your doctor know right away if: You have watery poop while taking an antibiotic. You have watery poop after you stop taking an antibiotic. The illness can happen weeks after you stop the medicine. You also have a risk of getting an infection in the future that antibiotics cannot treat (antibiotic-resistant infection). This type of infection can be dangerous. What else should I know about taking antibiotics? You need to take the entire prescription. ?Take the medicine for as long as told by your doctor. ?Do not stop taking it even if you start to feel better. Try not to miss any doses. If you miss a dose, call your doctor. control pills may not work. If you take control pills: ?Keep on taking them. ?Use a second form of control, such as a condom. Do this for as long as told by your doctor. Ask your doctor: ?How long to wait in between doses. ?If you should take the medicine with food. ?If there is anything you should stay away from while taking the antibiotic, such as: ?Food. ?Drinks. ?Medicines. ?If there are any side effects you should watch for. Only take the medicines that your doctor told you to take. Do not take medicines that were given tosomeone else. Drink a large glass of water with the medicine. Ask the pharmacist for a tool to measure the medicine, such as: ?A syringe. ?A cup. ?A spoon. Throw away any extra medicine. Contact a doctor if: You get worse. You have new joint pain or muscle aches after starting the medicine. You have side effects from the medicine, such as: ?Stomach pain. ?Watery poop. ?Feeling sick to your stomach (nausea). Get help right away if: You have signs of a very bad allergic reaction. If this happens, stop taking the medicine right away. Signs may include: ?Hives. These are raised, itchy, red bumps on the skin. ?Skin rash. ?Trouble breathing. ?Wheezing. ?Swelling. ?Feeling dizzy. ?Throwing up (vomiting). Your pee (urine) is dark, or is the color of blood. Your skin turns yellow. You bruise easily. You bleed easily. You have very bad watery poop and cramps in your belly. You have a very bad headache. Summary Antibiotics are often used to treat infections caused by bacteria. Only take these medicines when needed. Let your doctor know if you have watery poop while taking an antibiotic. You need to take the entire prescription. This information is not intended to replace advice given to you by your health care provider. Make sure you discuss any questions you have with your health care provider. Document Released: 02/17/2009 Document Revised: 06/17/2019 Document Reviewed: 05/13/2017 [employer] Patient Education 2020 [employer]. 11/06/2021 11:33:28 Antibiotic Medicine, Adult, Eeqq-kq-Paud Antibiotic Medicine, Adult Antibiotic medicines treat infections caused by a type of germ called bacteria. They work by killing the bacteria that make you sick. When do I need to take antibiotics? You often need these medicines to treat bacterial infections, such as: A urinary tract infection (UTI). Strep throat. Meningitis. This affects the spinal cord and brain. A bad lung infection. You may start the medicines while your doctor waits for tests to come back. When the tests come back, your doctor may change or stop your medicine. When are antibiotics not needed? You do not need these medicines for most common illnesses, such as: A cold. The flu. A sore throat. Antibiotics are not always needed for all infections caused by bacteria. Do not ask for these medicines, or take them, when they are not needed. What are the risks of taking antibiotics? Most antibiotics can cause an infection called Clostridioides difficile (C. diff). This causes watery poop (diarrhea). Let your doctor know right away if: You have watery poop while taking an antibiotic. You have watery poop after you stop taking an antibiotic. The illness can happen weeks after you stop the medicine. You also have a risk of getting an infection in the future that antibiotics cannot treat (antibiotic-resistant infection). This type of infection can be dangerous. What else should I know about taking antibiotics? You need to take the entire prescription. ?Take the medicine for as long as told by your doctor. ?Do not stop taking it even if you start to feel better. Try not to miss any doses. If you miss a dose, call your doctor. control pills may not work. If you take control pills: ?Keep on taking them. ?Use a second form of control, such as a condom. Do this for as long as told by your doctor. Ask your doctor: ?How long to wait in between doses. ?If you should take the medicine with food. ?If there is anything you should stay away from while taking the antibiotic, such as: ?Food. ?Drinks. ?Medicines. ?If there are any side effects you should watch for. Only take the medicines that your doctor told you to take. Do not take medicines that were given tosomeone else. Drink a large glass of water with the medicine. Ask the pharmacist for a tool to measure the medicine, such as: ?A syringe. ?A cup. ?A spoon. Throw away any extra medicine. Contact a doctor if: You get worse. You have new joint pain or muscle aches after starting the medicine. You have side effects from the medicine, such as: ?Stomach pain. ?Watery poop. ?Feeling sick to your stomach (nausea). Get help right away if: You have signs of a very bad allergic reaction. If this happens, stop taking the medicine right away. Signs may include: ?Hives. These are raised, itchy, red bumps on the skin. ?Skin rash. ?Trouble breathing. ?Wheezing. ?Swelling. ?Feeling dizzy. ?Throwing up (vomiting). Your pee (urine) is dark, or is the color of blood. Your skin turns yellow. You bruise easily. You bleed easily. You have very bad watery poop and cramps in your belly. You have a very bad headache. Summary Antibiotics are often used to treat infections caused by bacteria. Only take these medicines when needed. Let your doctor know if you have watery poop while taking an antibiotic. You need to take the entire prescription. This information is not intended to replace advice given to you by your health care provider. Make sure you discuss any questions you have with your health care provider. Document Released: 02/17/2009 Document Revised: 06/17/2019 Document Reviewed: 05/13/2017 [employer] Patient Education 2019 [employer] Follow Up Care 11/04/2021 11:24:24 With:Breanna Gu Address:Unknown When: Unknown [facility]06-08-2022 Evaluation + Plan note Future Scheduled Tests Laboratory* Fecal WBC Lactoferrin 10/30/21 * HgbA1c 07/29/21 * Enteric Panel by PCR 10/30/21 * Thyroid Stimulating Hormone 07/29/21 Radiology* NM Myocardial Spect Rest/Stress 1 Day 12/16/21 * Echo Transthoracic Complete 09/03/21 [facility] 06-08-2022 Evaluation + Plan note Future Scheduled Tests Laboratory* Fecal WBC Lactoferrin 10/30/21 * Enteric Panel by PCR 10/30/21 Radiology* NM Myocardial Spect Rest/Stress 1 Day 12/16/21 * Echo Transthoracic Complete 09/03/21 [facility]05-18-2022 Hospital Discharge instructions Patient Education 10/09/2021 17:53:37 Acute Bronchitis, Adult Acute Bronchitis, Adult Acute bronchitis is sudden (acute) swelling of the air tubes (bronchi) in the lungs. Acute bronchitis causes these tubes to fill with mucus, which can make it hard to breathe. It can also cause coughing or wheezing. In adults, acute bronchitis usually goes away within 2 weeks. A cough caused by bronchitis may lastup to 3 weeks. Smoking, allergies, and asthma can make the condition worse. Repeated episodes of bronchitis may cause further lung problems, such as chronic obstructive pulmonary disease (COPD). What are the causes? This condition can be caused by germs and by substances that irritate the lungs, including: Cold and flu viruses. This condition is most often caused by the same virus that causes a cold. Bacteria. Exposure to tobacco smoke, dust, fumes, and air pollution. What increases the risk? This condition is more likely to develop in people who: Have close contact with someone with acute bronchitis. Are exposed to lung irritants, such as tobacco smoke, dust, fumes, and vapors. Have a weak immune system. Have a respiratory condition such as asthma. What are the signs or symptoms? Symptoms of this condition include: A cough. Coughing up clear, yellow, or green mucus. Wheezing. Chest congestion. Shortness of breath. A fever. Body aches. Chills. A sore throat. How is this diagnosed? This condition is usually diagnosed with a physical exam. During the exam, your health care provider may order tests, such as chest X-rays, to rule out other conditions. He or she may also: Test a sample of your mucus for bacterial infection. Check the level of oxygen in your blood. This is done to check for pneumonia. Do a chest X-ray or lung function testing to rule out pneumonia and other conditions. Perform blood tests. Your health care provider will also ask about your symptoms and medical history. How is this treated? Most cases of acute bronchitis clear up over time without treatment. Your health care provider may recommend: Drinking more fluids. Drinking more makes your mucus thinner, which may make it easier to breathe. Taking a medicine for a fever or cough. Taking an antibiotic medicine. Using an inhaler to help improve shortness of breath and to control a cough. Using a cool mist vaporizer or humidifier to make it easier to breathe. Follow these instructions at home: Medicines Take ecgd-vnu-womybhk and prescription medicines only as told by your health care provider. If you were prescribed an antibiotic, take it as told by your health care provider. Do not stop taking the antibiotic even if you start to feel better. General instructions Get plenty of rest. Drink enough fluids to keep your urine pale yellow. Avoid smoking and secondhand smoke. Exposure to cigarette smoke or irritating chemicals will make bronchitis worse. If you smoke and you need help quitting, ask your health care provider. Quitting smoking will help your lungs heal faster. Use an inhaler, cool mist vaporizer, or humidifier as told by your health care provider. Keep all follow-up visits as told by your health care provider. This is important. How is this prevented? To lower your risk of getting this condition again: Wash your hands often with soap and water. If soap and water are not available, use hand agile project manager. Avoid contact with people who have cold symptoms. Try not to touch your hands to your mouth, nose, or eyes. Make sure to get the flu shot every year. Contact a health care provider if: Your symptoms do not improve in 2 weeks of treatment. Get help right away if: You cough up blood. You have chest pain. You have severe shortness of breath. You become dehydrated. You faint or keep feeling like you are going to faint. You keep vomiting. You have a severe headache. Your fever or chills gets worse. This information is not intended to replace advice given to you by your health care provider. Make sure you discuss any questions you have with your health care provider. Document Released: 06/18/2005 Document Revised: 03/24/2019 Document Reviewed: 10/29/2016 [employer] Patient Education [employer]. Follow Up Care 10/09/2021 15:26:41 With:Breanna Gu Address:Unknown When:10/12/2021 17:51:47 Comments:Call the office of your primary care doctor to arrange for follow-up within the above-stated timeframe. Follow-up with your primary care doctor about this ED visit. You should review your labs, imaging, and diagnoses from this ED visit with your primary care physician. If you were prescribed medications you should discuss possible side-effects and drug interactions with your pharmacist. Call 911 or go to the nearest Emergency Department if you develop any new or worsening symptoms.Seek immediate medical attention if you develop: worsening shortness of breath, difficulty breathing, chest pain,nausea, vomiting, weakness, numbness, tingling, excessive sweating, loss of motion in your arms or legs, or any new or worsening symptoms. [facility]05-09-2022 Hospital Discharge instructions Patient Education 09/30/2021 14:51:24 Obesity, Adult Obesity, Adult Obesity is the condition of having too much total body fat. Being overweight or obese means that your weight is greater than what is considered healthy for your body size. Obesity is determined by a measurement called BMI. BMI is an estimate of body fat and is calculated from height and weight. Foradults, a BMI of 30 or higher is considered obese. Obesity can lead to other health concerns and major illnesses, including: Stroke. Coronary artery disease (CAD). Type 2 diabetes. Some types of cancer, including cancers of the colon, breast, uterus, and gallbladder. Osteoarthritis. High blood pressure (hypertension). High cholesterol. Sleep apnea. Gallbladder stones. Infertility problems. What are the causes? Common causes of this condition include: Eating daily meals that are high in calories, sugar, and fat. Being born with genes that may make you more likely to become obese. Having a medical condition that causes obesity, including: ?Hypothyroidism. ?Polycystic ovarian syndrome (PCOS). ?Binge-eating disorder. ?[place] syndrome. Taking certain medicines, such as steroids, antidepressants, and seizure medicines. Not being physically active (sedentary lifestyle). Not getting enough sleep. Drinking high amounts of sugar-sweetened beverages, such as soft drinks. What increases the risk? The following factors may make you more likely to develop this condition: Having a family history of obesity. Being a woman of descent. Being a man of descent. Living in an area with limited access to: ?[place], recreation centers, or sidewalks. ?Healthy food choices, such as grocery stores and [employer]. What are the signs or symptoms? The main sign of this condition is having too much body fat. How is this diagnosed? This condition is diagnosed based on: Your BMI. If you are an adult with a BMI of 30 or higher, you are considered obese. Your waist circumference. This measures the distance around your waistline. Your skinfold thickness. Your health care provider may gently pinch a fold of your skin and measureit. You may have other tests to check for underlying conditions. How is this treated? Treatment for this condition often includes changing your lifestyle. Treatment may include some or all of the following: Dietary changes. This may include developing a healthy meal plan. Regular physical activity. This may include activity that causes your heart to beat faster (aerobicexercise) and strength training. Work with your health care provider to design an exercise program that works for you. Medicine to help you lose weight if you are unable to lose 1 pound a week after 6 weeks of healthy eating and more physical activity. Treating conditions that cause the obesity (underlying conditions). Surgery. Surgical options may include gastric banding and gastric bypass. Surgery may be done if: ?Other treatments have not helped to improve your condition. ?You have a BMI of 40 or higher. ?You have life-threatening health problems related to obesity. Follow these instructions at home: Eating and drinking Follow recommendations from your health care provider about what you eat and drink. Your health care provider may advise you to: ?Limit fast food, sweets, and processed snack foods. ?Choose low-fat options, such as low-fat milk instead of whole milk. ?Eat 5 or more servings of fruits or vegetables every day. ?Eat at home more often. This gives you more control over what you eat. ?Choose healthy foods when you eat out. ?Learn to read food labels. This will help you understand how much food is considered 1 serving. ?Learn what a healthy serving size is. ?Keep low-fat snacks available. ?Limit sugary drinks, such as soda, fruit juice, sweetened iced tea, and flavored milk. Drink enough water to keep your urine pale yellow. Do not follow a fad diet. Fad diets can be unhealthy and even dangerous. Physical activity Exercise regularly, as told by your health care provider. ?Most adults should get up to 150 minutes of moderate-intensity exercise every week. ?Ask your health care provider what types of exercise are safe for you and how often you should exercise. Warm up and stretch before being active. Cool down and stretch after being active. Rest between periods of activity. Lifestyle Work with your health care provider and a dietitian to set a weight-loss goal that is healthy and reasonable for you. Limit your screen time. Find ways to reward yourself that do not involve food. Do not drink alcohol if: ?Your health care provider tells you not to drink. ?You are , may be , or are planning to become . If you drink alcohol: ?Limit how much you use to: ?0 1 drink a day for women. ?0 2 drinks a day for men. ?Be aware of how much alcohol is in your drink. In the [place] one drink equals one 12 oz bottle of beer (355 mL), one 5 oz glass of wine (148 mL), or one 1 oz glass of hard liquor (44 mL). General instructions Keep a weight-loss journal to keep track of the food you eat and how much exercise you get. Take iuxs-pkb-btqfawy and prescription medicines only as told by your health care provider. Take vitamins and supplements only as told by your health care provider. Consider joining a support group. Your health care provider may be able to recommend a support group. Keep all follow-up visits as told by your health care provider. This is important. Contact a health care provider if: You are unable to meet your weight loss goal after 6 weeks of dietary and lifestyle changes. Get help right away if you are having: Trouble breathing. Suicidal thoughts or behaviors. Summary Obesity is the condition of having too much total body fat. Being overweight or obese means that your weight is greater than what is considered healthy for your body size. Work with your health care provider and a dietitian to set a weight-loss goal that is healthy and reasonable for you. Exercise regularly, as told by your health care provider. Ask your health care provider what types of exercise are safe for you and how often you should exercise. This information is not intended to replace advice given to you by your health care provider. Make sure you discuss any questions you have with your health care provider. Document Released: 06/18/2005 Document Revised: 01/13/2019 Document Reviewed: 01/13/2019 [employer] Education 2020 [employer]. 09/30/2021 14:51:20 Hypothyroidism Hypothyroidism Hypothyroidism is when the thyroid gland does not make enough of certain hormones (it is underactive). The thyroid gland is a small gland located in the lower front part of the neck, just in front ofthe windpipe (trachea). This gland makes hormones that help control how the body uses food for energy (metabolism) as well as how the heart and brain function. These hormones also play a role in keeping your bones strong. When the thyroid is underactive, it produces too little of the hormones thyroxine (T4) and triiodothyronine (T3). What are the causes? This condition may be caused by: Patel's disease. This is a disease in which the body's disease-fighting system (immune system) attacks the thyroid gland. This is the most common cause. Viral infections. . Certain medicines. defects. Past radiation treatments to the head or neck for cancer. Past treatment with radioactive iodine. Past exposure to radiation in the environment. Past surgical removal of part or all of the thyroid. Problems with a gland in the center of the brain (pituitary gland). Lack of enough iodine in the diet. What increases the risk? You are more likely to develop this condition if: You are female. You have a family history of thyroid conditions. You use a medicine called lithium. You take medicines that affect the immune system (immunosuppressants). What are the signs or symptoms? Symptoms of this condition include: Feeling as though you have no energy (lethargy). Not being able to tolerate cold. Weight gain that is not explained by a change in diet or exercise habits. Lack of appetite. Dry skin. Coarse hair. Menstrual irregularity. Slowing of thought processes. Constipation. Sadness or depression. How is this diagnosed? This condition may be diagnosed based on: Your symptoms, your medical history, and a physical exam. Blood tests. You may also have imaging tests, such as an ultrasound or MRI. How is this treated? This condition is treated with medicine that replaces the thyroid hormones that your body does not make. After you begin treatment, it may take several weeks for symptoms to go away. Follow these instructions at home: Take dlxj-ldf-acoukvy and prescription medicines only as told by your health care provider. If you start taking any new medicines, tell your health care provider. Keep all follow-up visits as told by your health care provider. This is important. ?As your condition improves, your dosage of thyroid hormone medicine may change. ?You will need to have blood tests regularly so that your health care provider can monitor your condition. Contact a health care provider if: Your symptoms do not get better with treatment. You are taking thyroid replacement medicine and you: ?Sweat a lot. ?Have tremors. ?Feel anxious. ?Lose weight rapidly. ?Cannot tolerate heat. ?Have emotional swings. ?Have diarrhea. ?Feel weak. Get help right away if you have: Chest pain. An irregular heartbeat. A rapid heartbeat. Difficulty breathing. Summary Hypothyroidism is when the thyroid gland does not make enough of certain hormones (it is underactive). When the thyroid is underactive, it produces too little of the hormones thyroxine (T4) and triiodothyronine (T3). The most common cause is Patel's disease, a disease in which the body's disease-fighting system(immune system) attacks the thyroid gland. The condition can also be caused by viral infections, medicine, , or past radiation treatment to the head or neck. Symptoms may include weight gain, dry skin, constipation, feeling as though you do not have energy,and not being able to tolerate cold. This condition is treated with medicine to replace the thyroid hormones that your body does not make. This information is not intended to replace advice given to you by your health care provider. Make sure you discuss any questions you have with your health care provider. Document Released: 05/11/2006 Document Revised: 04/23/2018 Document Reviewed: 04/21/2018 [employer] Patient Education 2020 [employer]. 09/30/2021 14:51:16 Preventing Diabetes Mellitus Complications Preventing Diabetes Mellitus Complications You can take action to prevent or slow down problems that are caused by diabetes (diabetes mellitus). Following your diabetes plan and taking care of yourself can reduce your risk of serious or life-threatening complications. What actions can I take to prevent diabetes complications? Manage your diabetes Follow instructions from your health care providers about managing your diabetes. Your diabetes maybe managed by a team of health care providers who can teach you how to care for yourself and can answer questions that you have. Educate yourself about your condition so you can make healthy choices about eating and physical activity. Check your blood sugar (glucose) levels as often as directed. Your health care provider will help you decide how often to check your blood glucose level depending on your treatment goals and how wellyou are meeting them. Ask your health care provider if you should take low-dose aspirin daily and what dose is recommended for you. Taking low-dose aspirin daily is recommended to help prevent cardiovascular disease. Do not use nicotine or tobacco Do not use any products that contain nicotine or tobacco, such as cigarettes and e-cigarettes. If you need help quitting, ask your health care provider. Nicotine raises your risk for diabetes problems. If you quit using nicotine: You will lower your risk for heart attack, stroke, nerve disease, and kidney disease. Your cholesterol and blood pressure may improve. Your blood circulation will improve. Keep your blood pressure under control Your personal target blood pressure is determined based on: Your age. Your medicines. How long you have had diabetes. Any other medical conditions you have. To control your blood pressure: Follow instructions from your health care provider about meal planning, exercise, and medicines. Make sure your health care provider checks your blood pressure at every medical visit. Monitor your blood pressure at home as told by your health care provider. Keep your cholesterol under control To control your cholesterol: Follow instructions from your health care provider about meal planning, exercise, and medicines. Have your cholesterol checked at least once a year. You may be prescribed medicine to lower cholesterol (statin). If you are not taking a statin, ask your health care provider if you should be. Controlling your cholesterol may: Help prevent heart disease and stroke. These are the most common health problems for people with diabetes. Improve your blood flow. Schedule and keep yearly physical exams and eye exams Your health care provider will tell you how often you need medical visits depending on your diabetes management plan. Keep all follow-up visits as directed. This is important so possible problems canbe identified early and complications can be avoided or treated. Every visit with your health care provider should include measuring your: ?Weight. ?Blood pressure. ?Blood glucose control. Your A1c (hemoglobin A1c) level should be checked: ?At least 2 times a year, if you are meeting your treatment goals. ?4 times a year, if you are not meeting treatment goals or if your treatment goals have changed. Your blood lipids (lipid profile) should be checked yearly. You should also be checked yearly for protein in your urine (urine microalbumin). If you have type 1 diabetes, get an eye exam 3 5 years after you are diagnosed, and then once a year after your first exam. If you have type 2 diabetes, get an eye exam as soon as you are diagnosed, and then once a year after your first exam. Keep your vaccines current It is recommended that you receive: A flu (influenza) vaccine every year. A pneumonia (pneumococcal) vaccine and a hepatitis B vaccine. If you are age 65 or older, you may get the pneumonia vaccine as a series of two separate shots. Ask your health care provider which other vaccines may be recommended. Take care of your feet Diabetes may cause you to have poor blood circulation to your legs and feet. Because of this, taking care of your feet is very important. Diabetes can cause: The skin on the feet to get thinner, break more easily, and heal more slowly. Nerve damage in your legs and feet, which results in decreased feeling. You may not notice minor injuries that could lead to serious problems. To avoid foot problems: Check your skin and feet every day for cuts, bruises, redness, blisters, or sores. Schedule a foot exam with your health care provider once every year. This exam includes: ?Inspecting of the structure and skin of your feet. ?Checking the pulses and sensation in your feet. Make sure that your health care provider performs a visual foot exam at every medical visit. Take care of your teeth People with poorly controlled diabetes are more likely to have gum (periodontal) disease. Diabetes can make periodontal diseases harder to control. If not treated, periodontal diseases can lead to tooth loss. To prevent this: [place] your teeth twice a day. Floss at least once a day. Visit your dentist 2 times a year. Drink responsibly Limit alcohol intake to no more than 1 drink a day for non women and 2 drinks a day for men. One drink equals 12 oz of beer, 5 oz of wine, or 1 oz of hard liquor. It is important to eat food when you drink alcohol to avoid low blood glucose (hypoglycemia). Avoidalcohol if you: Have a history of alcohol abuse or dependence. Are . Have liver disease, pancreatitis, advanced neuropathy, or severe hypertriglyceridemia. Lessen stress Living with diabetes can be stressful. When you are experiencing stress, your blood glucose may be affected in two ways: Stress hormones may cause your blood glucose to rise. You may be distracted from taking good care of yourself. Be aware of your stress level and make changes to help you manage challenging situations. To lower your stress levels: Consider joining a support group. Do planned relaxation or meditation. Do a hobby that you enjoy. Maintain healthy relationships. Exercise regularly. Work with your health care provider or a mental health professional. Summary You can take action to prevent or slow down problems that are caused by diabetes (diabetes mellitus). Following your diabetes plan and taking care of yourself can reduce your risk of serious or life-threatening complications. Follow instructions from your health care providers about managing your diabetes. Your diabetes maybe managed by a team of health care providers who can teach you how to care for yourself and can answer questions that you have. Your health care provider will tell you how often you need medical visits depending on your diabetes management plan. Keep all follow-up visits as directed. This is important so possible problems canbe identified early and complications can be avoided or treated. This information is not intended to replace advice given to you by your health care provider. Make sure you discuss any questions you have with your health care provider. Document Released: 01/27/2012 Document Revised: 08/09/2018 Document Reviewed: 02/07/2017 [employer] Patient Education 2020 [employer]. 09/30/2021 14:51:12 General Anesthesia, Adult General Anesthesia, Adult General anesthesia is the use of medicines to make a person go to sleep (unconscious) for a medical procedure. General anesthesia must be used for certain procedures, and is often recommended for procedures that: Last a long time. Require you to be still or in an unusual position. Are major and can cause blood loss. The medicines used for general anesthesia are called general anesthetics. As well as making you unconscious for a certain amount of time, these medicines: Prevent pain. Control your blood pressure. Relax your muscles. Tell a health care provider about: Any allergies you have. All medicines you are taking, including vitamins, herbs, eye drops, creams, and sqrv-sxy-tshhjlx medicines. Any problems you or family members have had with anesthetic medicines. Types of anesthetics you have had in the past. Any blood disorders you have. Any surgeries you have had. Any medical conditions you have. Any recent upper respiratory, chest, or ear infections. Any history of: ?Heart or lung conditions, such as heart failure, sleep apnea, asthma, or chronic obstructive pulmonary disease (COPD). ? service. ?Depression or anxiety. Any tobacco or drug use, including marijuana or alcohol use. Whether you are or may be . What are the risks? Generally, this is a safe procedure. However, problems may occur, including: Allergic reaction. Lung and heart problems. Inhaling food or liquid from the stomach into the lungs (aspiration). Nerve injury. Dental injury. Air in the bloodstream, which can lead to stroke. Extreme agitation or confusion (delirium) when you wake up from the anesthetic. Waking up during your procedure and being unable to move. This is rare. These problems are more likely to develop if you are having a major surgery or if you have an advanced or serious medical condition. You can prevent some of these complications by answering all of your health care provider's questions thoroughly and by following all instructions before your procedure. General anesthesia can cause side effects, including: Nausea or vomiting. A sore throat from the breathing tube. Hoarseness. Wheezing or coughing. Shaking chills. Tiredness. Body aches. Anxiety. Sleepiness or drowsiness. Confusion or agitation. What happens before the procedure? Staying hydrated Follow instructions from your health care provider about hydration, which may include: Up to 2 hours before the procedure you may continue to drink clear liquids, such as water, clear fruit juice, black coffee, and plain tea. Eating and drinking restrictions Follow instructions from your health care provider about eating and drinking, which may include: 8 hours before the procedure stop eating heavy meals or foods such as meat, fried foods, or fatty foods. 6 hours before the procedure stop eating light meals or foods, such as toast or cereal. 6 hours before the procedure stop drinking milk or drinks that contain milk. 2 hours before the procedure stop drinking clear liquids. Medicines Ask your health care provider about: Changing or stopping your regular medicines. This is especially important if you are taking diabetes medicines or blood thinners. Taking medicines such as aspirin and ibuprofen. These medicines can thin your blood. Do not take these medicines unless your health care provider tells you to take them. Taking bbeh-neo-jmpvznq medicines, vitamins, herbs, and supplements. Do not take these during the week before your procedure unless your health care provider approves them. General instructions Starting 3 6 weeks before the procedure, do not use any products that contain nicotine or tobacco, such as cigarettes and e-cigarettes. If you need help quitting, ask your health care provider. If you brush your teeth on the morning of the procedure, make sure to spit out all of the toothpaste. Tell your health care provider if you become ill or develop a cold, cough, or fever. If instructed by your health care provider, bring your sleep apnea device with you on the day of your surgery (if applicable). Ask your health care provider if you will be going home the same day, the following day, or after alonger hospital stay. ?Plan to have someone take you home from the hospital or clinic. ?Plan to have a responsible adult care for you for at least 24 hours after you leave the hospital or clinic. This is important. What happens during the procedure? You will be given anesthetics through both of the following: ?A mask placed over your nose and mouth. ?An IV in one of your veins. You may receive a medicine to help you relax (sedative). After you are unconscious, a breathing tube may be inserted down your throat to help you breathe. This will be removed before you wake up. An anesthesia specialist will stay with you throughout your procedure. He or she will: ?Keep you comfortable and safe by continuing to give you medicines and adjusting the amount of medicine that you get. ?Monitor your blood pressure, pulse, and oxygen levels to make sure that the anesthetics do not cause any problems. The procedure may vary among health care providers and hospitals. What happens after the procedure? Your blood pressure, temperature, heart rate, breathing rate, and blood oxygen level will be monitored until the medicines you were given have worn off. You will wake up in a recovery area. You may wake up slowly. If you feel anxious or agitated, you may be given medicine to help you calm down. If you will be going home the same day, your health care provider may check to make sure you can walk, drink, and urinate. Your health care provider will treat any pain or side effects you have before you go home. Do not drive for 24 hours if you were given a sedative. Summary General anesthesia is used to keep you still and prevent pain during a procedure. It is important to tell your health care provider about your medical history and any surgeries you have had, and previous experience with anesthesia. Follow your health care provider's instructions about when to stop eating, drinking, or taking certain medicines before your procedure. Plan to have someone take you home from the hospital or clinic. This information is not intended to replace advice given to you by your health care provider. Make sure you discuss any questions you have with your health care provider. Document Released: 08/17/2008 Document Revised: 09/28/2018 Document Reviewed: 12/25/2017 [employer] Patient Education 2020 [employer]. [facility] 01-21-2022 Evaluation note* Encounter Date Diagnosis Assessment Notes Treatment Notes Treatment Clinical Notes May, Contact with and (suspected) exposure to other viral communicable diseases (ICD-10 - Z20.828) May, COVID-19 (ICD-10 - U07.1) Drink plenty of fluids, get plenty of rest. Continue home medications as prescribed. Take the Zithromax as prescribed until gone. Use the albuterol inhaler as prescribed as needed for cough or shortness of breath. Follow-up with your family physician if no improvement in 2 to 3 days. You must quarantine for 10 days after the onset of your symptoms. May, Other Additional time spent conducting pre-visit phone call, screening for symptoms, instructions on social distancing, application and removal of PPE, and cleaning of examination room, equipment and supplies was preformed. Patient education given for testing methodology and results. Patient care instructions given in writting by [facility] Care At Home document. Hachiko Other Consult note Author Lawrence Kim [facility] August 20, 2022 10:27am Note Date/Time August 20, 2022 10: 26am [facility] [address] [place] [address] Infect. Disease Consult Note Signed Patient: Addie Jean Baptiste MR#: [id number] : 1975 Acct:[id number] Age/Sex: 47 / F Adm Date: 3 Loc: Room: [address] [place] [address] Type: ADM INOo Attending Dr: Jeana Martini MD Copies to: MD Jeana Magana MD~ HPI Data of Consult Consult date: 08/20/22 Requesting Physician: Jeana Martini MD Primary Care Provider: LOLI Quintero Consult Narrative History of present illness: Ms. Jean Baptiste is a 47 year old female who was admitted for left toe wound that apparently has been present for a month. She actually tells me she was hospitalized in July at [facility] for 4 days for this. She apparently also seesDr. Box. On consulted due to this ulceration. Patient states it started as ablister that then popped. She is having a lot of pain and asked me for strongerpain medication. She is currently on IV Unasyn. CC: Jeana Martini MD Review of Systems Review of Systems All other systems reviewed & are negative unless noted below or in HPI [facility] Attestation Statement: The following information was validated with the patient. Vaccinated for COVID-19?: Yes Medical History (Updated 08/20/22 @ 03:53 by Ezekiel Mathew DO) Anxiety Arthritis Bipolar disorder Cardiac defibrillator in place Depression Diabetes Migraine Port-A-Cath in place Pseudoseizure Restless leg syndrome Schizophrenia Sciatica Seizures TIA (transient ischemic attack) Vertigo Surgical History History of foot surgery left foot plate History of hysterectomy Hx of cholecystectomy Pacemaker Family History Father CAD (coronary artery disease) Diabetes HTN (hypertension) Mother Seizures Brother Blood disease Social History Smoking Status: Current every day smoker Tobacco Type: e-cigarettes Substance Use Type: None Social History Comments: infusaport Allergies and Medications Allergies and Active Meds Allergies adhesive tape Allergy (Verified 08/19/22 21:48) Hives codeine Allergy (Verified 08/19/22 21:48) Vomiting fentanyl Allergy (Verified 08/19/22 21:48) Hives ibuprofen Allergy (Verified 08/19/22 21:48) Unknown Reaction Iodinated Contrast Media Allergy (Verified 08/19/22 21:48) Unknown Reaction ketorolac [From Toradol] Allergy (Verified 08/19/22 21:48) Vomiting latex Allergy (Verified 08/19/22 21:48) Hives propoxyphene [From Darvocet-N] Allergy (Verified 08/19/22 21:48) Vomiting tramadol Allergy (Verified 08/19/22 21:48) Vomiting vancomycin Allergy (Verified 08/19/22 21:48) Unknown Reaction linezolid [From Zyvox] Adverse Reaction (Verified 08/19/22 21:48) Vomiting Active Medications Acetaminophen (Acetaminophen 325 Mg Tablet) 650 mg PO Q4H PRN PRN Reason: Pain Scale 1 - 3 or fever Stop: 08/20/23 03:40 Amlodipine Besylate (Amlodipine 5 Mg Tablet) 5 mg PO DAILY [facility] Stop: 08/20/23 09:39 Clonidine HCl (Clonidine 0.1 Mg Tablet) 0.1 mg PO Q4H PRN PRN Reason: Hypertension Stop: 08/20/23 03:40 Dextrose (Dextrose 50% In Water 25 Gm/50 Ml Syringe) 0 gm IV-PUSH PRN PRN PRN Reason: Hypoglycemia Stop: 08/20/23 03:40 Enoxaparin Sodium (Enoxaparin 40 Mg/0.4 Ml Syringe) 40 mg SUBCUT DAILY@1000 [facility] Stop: 08/20/23 09:59 Last Admin: 08/20/22 09:29 Dose: 40 mg Ergocalciferol (Ergocalciferol 1,250 Mcg (50,000 Units) Capsule) 1,250 mcg PO Q7D [facility] Stop: 08/20/23 09:44 Furosemide (Furosemide 20 Mg Tablet) 20 mg PO DAILY.8A SMAEER Stop: 08/20/23 07:59 Last Admin: 08/20/22 09:26 Dose: 20 mg Glucose (Dextrose 40% Gel 15 Gm Tube) 0 gm PO PRN PRN PRN Reason: Hypoglycemia Stop: 08/20/23 03:40 Ampicillin Sodium/Sulbactam Sodium (Unasyn) 3 gm in 100 mls @ 200 mls/hr IV Q6HSCH Last Admin: 08/20/22 09:27 Dose: 200 mls/hr Levetiracetam (Levetiracetam 250 Mg Tablet) 750 mg PO BID [facility] Stop: 08/20/23 08:59 Last Admin: 08/20/22 08:24 Dose: 750 mg Levothyroxine Sodium (Levothyroxine 75 Mcg Tablet) 75 mcg PO DAILY@0630 [facility] Stop: 08/20/23 06:29 Last Admin: 08/20/22 06:15 Dose: 75 mcg Lisinopril (Lisinopril 40 Mg Tablet) 40 mg PO DAILY [facility] Stop: 08/20/23 08:59 Last Admin: 08/20/22 08:25 Dose: 40 mg Metformin HCl (Metformin 500 Mg Tablet) 1,000 mg PO BID.WITH.MEALS SAMEER Stop: 08/20/23 07:59 Last Admin: 08/20/22 08:25 Dose: 1,000 mg Pantoprazole Sodium (Pantoprazole 40 Mg Tablet.Dr) 40 mg PO DAILY [facility] Stop: 08/21/23 08:59 Pregabalin (Pregabalin 150 Mg Capsule) 150 mg PO HS [facility] Stop: 02/16/23 03:44 Last Admin: 08/20/22 04:09 Dose: 150 mg Quetiapine Fumarate (Quetiapine Fumarate 200 Mg Tablet) 800 mg PO HS [facility] Stop: 08/20/23 03:59 Last Admin: 08/20/22 04:09 Dose: 800 mg Saccharomyces Boulardii (Saccharomyces Boulardii 250 Mg Capsule) 250 mg PO BID.WITH.MEALS SAMEER Stop: 08/20/23 07:59 Last Admin: 08/20/22 08:26 Dose: 250 mg Sodium Chloride (Sodium Chloride 0.9 % 10 Ml Syringe) 0 ml IV-PUSH PRN PRN PRN Reason: Flush Stop: 03/27/24 21:46 Tizanidine HCl (Tizanidine 4 Mg Tablet) 4 mg PO TID PRN PRN Reason: Muscle Spasm Stop: 08/20/23 03:43 Last Admin: 08/20/22 08:50 Dose: 4 mg Tramadol HCl (Tramadol 50 Mg Tablet) 50 mg PO Q6H PRN PRN Reason: Pain Scale 6 - 10 Stop: 02/16/23 09:04 Exam Physical Exam Vital Signs: Temp Pulse Resp BP Pulse Ox O2 Del Method 97.9 F 70 16 176/105 H 100 Room Air 08/20/22 03:36 08/20/22 03:36 08/20/22 03:36 08/20/22 03:36 08/20/22 03:36 08/20/22 04:26 Const General: cooperative, comfortable and no acute distress Orientation: oriented x3 HEENT Head: normal to inspection Nose: external nose normal Eyes General: appearance normal, both eyes and all related structures Neck Neck: normal visual inspection Chest Chest palpation & inspection: normal inspection of the chest Resp Effort & Inspection: normal respiratory effort Auscultation: clear to auscultation bilaterally Cardio Rate: regular rate Rhythm: regular rhythm GI Inspection: normal to inspection Palpation: soft and nontender Auscultation: normal bowel sounds Skin Lesions: lesion noted (Denuded skin noted over toe with serous drainage. ) ulcerleft great toe Other: Per the hospitalist H&P there is streaking going up the forefoot but I do not appreciate that currently Extrem General: normal to inspection Other: see skin Results Labs 08/20/22 06:47 08/20/22 06:47 Labs: 08/20/22 00:19: Corrected WBC 8.5, Uncorrected WBC Count 8.5 08/20/22 00:19: BUN 15, Creatinine 0.93 08/20/22 06:47: Corrected WBC 8.9, Uncorrected WBC Count 8.9 08/20/22 06:47: BUN 12, Creatinine 0.81 Laboratory Results - last 24 hr 08/20/22 08/20/22 08/20/22 00:19 00:19 00:19 Corrected WBC 8.5 Uncorrected WBC Count 8.5 RBC 3.77 Hgb 11.6 L Hct 34.4 MCV 91.2 MCH 30.8 MCHC 33.8 RDW 14.5 Plt Count 326 MPV 6.9 Neut % (Auto) 64.7 Lymph % (Auto) 27.3 Mills % (Auto) 6.0 Eos % (Auto) 1.3 Baso % (Auto) 0.7 Nucleat RBC Rel Count 0.0 Neut # (Auto) 5.5 Lymph # (Auto) 2.3 Mills # (Auto) 0.5 Eos # (Auto) 0.1 Baso # (Auto) 0.1 Monocyte Dist Width 20.72 H ESR 47 H PT 12.2 INR 1.1 APTT 62.3 H PHA Creatinine Clear 91.29 Sodium 141 Potassium 3.3 L Chloride 105 Carbon Dioxide 28.0 Anion Gap 11.3 BUN 15 Creatinine 0.93 Est GFR (CKD-EPI) > 60.0 Glucose 234 H POC Glucose POC Glucose Comment Estimat Average Glucose Hemoglobin A1c Calcium 9.2 Phosphorus Magnesium 1.2 L Total Bilirubin 0.4 AST 9 L ALT 7 Alkaline Phosphatase 82 Troponin I High Sens C-Reactive Prot, Quant 1.9 H Total Protein 6.4 Albumin 3.6 Globulin 2.8 Albumin/Globulin Ratio 1.3 25-OH Vitamin D Total Urine Color Urine Appearance Urine pH Ur Specific [place] Urine Protein Urine Glucose (UA) Urine Ketones Urine Occult Blood Urine Nitrite Urine Bilirubin Urine Urobilinogen Ur Leukocyte Esterase Urine RBC Urine WBC Ur Squamous Epith Cells Urine Bacteria Hyaline Casts Urine Opiates Screen Ur Barbiturates Screen Ur Phencyclidine Scrn Ur Amphetamines Screen U Benzodiazepines Scrn Urine Cocaine Screen U Marijuana (THC) Screen 08/20/22 08/20/22 08/20/22 00:19 01:00 01:07 Corrected WBC Uncorrected WBC Count RBC Hgb Hct MCV MCH MCHC RDW Plt Count MPV Neut % (Auto) Lymph % (Auto) Mills % (Auto) Eos % (Auto) Baso % (Auto) Nucleat RBC Rel Count Neut # (Auto) Lymph # (Auto) Mills # (Auto) Eos # (Auto) Baso # (Auto) Monocyte Dist Width ESR PT INR APTT PHA Creatinine Clear Sodium Potassium Chloride Carbon Dioxide Anion Gap BUN Creatinine Est GFR (CKD-EPI) Glucose POC Glucose 226 POC Glucose Comment Estimat Average Glucose Hemoglobin A1c Calcium Phosphorus Magnesium Total Bilirubin AST ALT Alkaline Phosphatase Troponin I High Sens 8.2 C-Reactive Prot, Quant Total Protein Albumin Globulin Albumin/Globulin Ratio 25-OH Vitamin D Total Urine Color Yellow Urine Appearance Clear Urine pH 6.5 Ur Specific [place] 1.017 Urine Protein 100 H Urine Glucose (UA) >=1000 H Urine Ketones Negative Urine Occult Blood Trace H Urine Nitrite Negative Urine Bilirubin Negative Urine Urobilinogen Normal Ur Leukocyte Esterase Negative Urine RBC 5-9 H Urine WBC 10-19 H Ur Squamous Epith Cells 3-4 H Urine Bacteria 1+ H Hyaline Casts 0-8 Urine Opiates Screen Ur Barbiturates Screen Ur Phencyclidine Scrn Ur Amphetamines Screen U Benzodiazepines Scrn Urine Cocaine Screen U Marijuana (THC) Screen 08/20/22 08/20/22 08/20/22 01:07 06:47 06:47 Corrected WBC 8.9 Uncorrected WBC Count 8.9 RBC 3.38 L Hgb 10.5 L Hct 31.0 L MCV 91.8 MCH 31.1 MCHC 33.9 RDW 14.0 Plt Count 293 MPV 6.8 Neut % (Auto) 68.9 Lymph % (Auto) 22.6 Mills % (Auto) 6.9 Eos % (Auto) 1.1 Baso % (Auto) 0.5 Nucleat RBC Rel Count 0.2 Neut # (Auto) 6.2 Lymph # (Auto) 2.0 Mills # (Auto) 0.6 Eos # (Auto) 0.1 Baso # (Auto) 0.0 Monocyte Dist Width ESR PT INR APTT PHA Creatinine Clear 106.20 Sodium 141 Potassium 3.4 L Chloride 107 Carbon Dioxide 26.5 Anion Gap 10.9 BUN 12 Creatinine 0.81 Est GFR (CKD-EPI) > 60.0 Glucose 198 H POC Glucose POC Glucose Comment Estimat Average Glucose Hemoglobin A1c Calcium 8.6 Phosphorus Magnesium Total Bilirubin AST ALT Alkaline Phosphatase Troponin I High Sens C-Reactive Prot, Quant Total Protein Albumin Globulin Albumin/Globulin Ratio 25-OH Vitamin D Total < 7.0 L Urine Color Urine Appearance Urine pH Ur Specific [place] Urine Protein Urine Glucose (UA) Urine Ketones Urine Occult Blood Urine Nitrite Urine Bilirubin Urine Urobilinogen Ur Leukocyte Esterase Urine RBC Urine WBC Ur Squamous Epith Cells Urine Bacteria Hyaline Casts Urine Opiates Screen Negative Ur Barbiturates Screen Negative Ur Phencyclidine Scrn Negative Ur Amphetamines Screen Negative U Benzodiazepines Scrn Negative Urine Cocaine Screen Negative U Marijuana (THC) Screen Negative 08/20/22 08/20/22 08/20/22 06:47 06:47 06:48 Corrected WBC Uncorrected WBC Count RBC Hgb Hct MCV MCH MCHC RDW Plt Count MPV Neut % (Auto) Lymph % (Auto) Mills % (Auto) Eos % (Auto) Baso % (Auto) Nucleat RBC Rel Count Neut # (Auto) Lymph # (Auto) Mills # (Auto) Eos # (Auto) Baso # (Auto) Monocyte Dist Width ESR PT INR APTT PHA Creatinine Clear Sodium Potassium Chloride Carbon Dioxide Anion Gap BUN Creatinine Est GFR (CKD-EPI) Glucose POC Glucose 241 POC Glucose Comment Estimat Average Glucose 220 Hemoglobin A1c 9.3 H Calcium Phosphorus 3.1 L Magnesium Total Bilirubin AST ALT Alkaline Phosphatase Troponin I High Sens C-Reactive Prot, Quant Total Protein Albumin Globulin Albumin/Globulin Ratio 25-OH Vitamin D Total Urine Color Urine Appearance Urine pH Ur Specific [place] Urine Protein Urine Glucose (UA) Urine Ketones Urine Occult Blood Urine Nitrite Urine Bilirubin Urine Urobilinogen Ur Leukocyte Esterase Urine RBC Urine WBC Ur Squamous Epith Cells Urine Bacteria Hyaline Casts Urine Opiates Screen Ur Barbiturates Screen Ur Phencyclidine Scrn Ur Amphetamines Screen U Benzodiazepines Scrn Urine Cocaine Screen U Marijuana (THC) Screen 08/20/22 08/20/22 07:30 09:53 Corrected WBC Uncorrected WBC Count RBC Hgb Hct MCV MCH MCHC RDW Plt Count MPV Neut % (Auto) Lymph % (Auto) Mills % (Auto) Eos % (Auto) Baso % (Auto) Nucleat RBC Rel Count Neut # (Auto) Lymph # (Auto) Mills # (Auto) Eos # (Auto) Baso # (Auto) Monocyte Dist Width ESR PT INR APTT PHA Creatinine Clear Sodium Potassium Chloride Carbon Dioxide Anion Gap BUN Creatinine Est GFR (CKD-EPI) Glucose POC Glucose 230 414 H* POC Glucose Comment Glu2: cleaned meter Cleaned meter Estimat Average Glucose Hemoglobin A1c Calcium Phosphorus Magnesium Total Bilirubin AST ALT Alkaline Phosphatase Troponin I High Sens C-Reactive Prot, Quant Total Protein Albumin Globulin Albumin/Globulin Ratio 25-OH Vitamin D Total Urine Color Urine Appearance Urine pH Ur Specific [place] Urine Protein Urine Glucose (UA) Urine Ketones Urine Occult Blood Urine Nitrite Urine Bilirubin Urine Urobilinogen Ur Leukocyte Esterase Urine RBC Urine WBC Ur Squamous Epith Cells Urine Bacteria Hyaline Casts Urine Opiates Screen Ur Barbiturates Screen Ur Phencyclidine Scrn Ur Amphetamines Screen U Benzodiazepines Scrn Urine Cocaine Screen U Marijuana (THC) Screen Imaging and Cardiology Status: report viewed by me Results Comments: Xray: ? LEFT FOOT? - 3 views ? COMPARISON: None ? AP, lateral and oblique views were obtained.? There is no evidence of fracture or dislocation.? No obvious bony destruction is seen.? There is a plate along the distal fibular shaft.? Mild distal dorsal soft tissue swelling is seen. ? IMPRESSION:? ? NO ACUTE PLAIN FILM FINDINGS. A&P - Infectious Disease (1) Toe infection: Status: Acute Plan Under impressive appearance of left hallux. Though the skin is missing this wound appears superficial. Plain x-ray without findings of osteomyelitis. Markers of inflammation minimally elevated. Apparent streaking on admission which is resolved today. On IV Unasyn. Podiatry was consulted. Probably wouldbenefit from appropriate wound care, better compliance on management of her sugars and short course of oral antibiotic. Documented By: Lawrence Kim MD 08/20/22 1020 Signed By: <Electronically signed by MD Lawrence Kim> 08/20/22 1027 [facility] Work Phone: Consult note Author Swapnil Castillo [facility] August 20, 2022 1:14pm Note Date/Time August 20, 2022 1:1 3pm [facility] [address] [place] [address] Podiatry Consult Note Signed Patient: Addie Jean Baptiste MR#: [id number] : 1975 Acct:[id number] Age/Sex: 47 / F Adm Date: 3 Loc: Room: [address] [place] [address] Type: ADM IN Attending Dr: Jeana Martini MD Copies to: LUPE Muñiz MD~ HPI Data of Consult Consult Date: 07/22/22 Requesting Physician: Jeana Martini MD Primary Care Provider: LOLI Quintero Consult Narrative History of present illness: Ms. Jean Baptiste is a 47 year old female seen today per request of hospitalist for leftgreat toe infection as well and cellulitis to left foot. Patient is type II diabetic on was last seen by our podiatry group in September 2021. She did miss her surgery at that time. She is a type II diabetic with poorly controlled sugars with type 2 diabetes and also has multiple medical issues as well as history of pacemaker and TIA. Patient states poor glycemic control and also has numbness to her feet. She states issue in the past with problems with the great toe area and has been on oral antibiotics in the past with ER visits in the past but no follow-up withpodiatry for approximately the past year. Denies nausea vomiting chills ROS: GI: denies abdominal pain or cramping or loose stool on IV abx CARDIO: denies CP/SOB/Irregular rhythms or palpitations. Pause history of pacemaker and TIA MS:Denies calf pains PMFSH Attestation Statement: The following information was validated with the patient. Vaccinated for COVID-19?: Yes Medical History Anxiety Arthritis Bipolar disorder Cardiac defibrillator in place Depression Diabetes Migraine Port-A-Cath in place Pseudoseizure Restless leg syndrome Schizophrenia Sciatica Seizures TIA (transient ischemic attack) Vertigo Surgical History History of foot surgery left foot plate History of hysterectomy Hx of cholecystectomy Pacemaker Family History Father CAD (coronary artery disease) Diabetes HTN (hypertension) Mother Seizures Brother Blood disease Social History Smoking Status: Current every day smoker Tobacco Type: e-cigarettes Substance Use Type: None Social History Comments: infusaport Meds Medications and Allergies Allergies adhesive tape Allergy (Verified 08/19/22 21:48) Hives codeine Allergy (Verified 08/19/22 21:48) Vomiting fentanyl Allergy (Verified 08/19/22 21:48) Hives ibuprofen Allergy (Verified 08/19/22 21:48) Unknown Reaction Iodinated Contrast Media Allergy (Verified 08/19/22 21:48) Unknown Reaction ketorolac [From Toradol] Allergy (Verified 08/19/22 21:48) Vomiting latex Allergy (Verified 08/19/22 21:48) Hives propoxyphene [From Darvocet-N] Allergy (Verified 08/19/22 21:48) Vomiting tramadol Allergy (Verified 08/19/22 21:48) Vomiting vancomycin Allergy (Verified 08/19/22 21:48) Unknown Reaction linezolid [From Zyvox] Adverse Reaction (Verified 08/19/22 21:48) Vomiting Home Medications levothyroxine 75 mcg tablet 75 mcg PO DAILY 07/23/18 [History Confirmed 08/20/22] metformin 1,000 mg tablet 1,000 mg PO BID 07/23/18 [History Confirmed 08/20/22] omeprazole magnesium 10 mg oral suspension,delayed release (Prilosec) 40 mg PO DAILY 07/23/18 [History Confirmed 08/20/22] insulin lispro 100 unit/mL subcutaneous solution (Admelog U-100 Insulin lispro) See Rx Instructions .Route .COMPLEX 09/07/18 [History Confirmed 09/12/21] levetiracetam 500 mg tablet 750 mg PO BID 08/04/19 [History Confirmed 08/20/22] pregabalin 150 mg capsule 150 mg PO HS 08/04/19 [History Confirmed 08/20/22] quetiapine 400 mg tablet 800 mg PO HS 08/04/19 [History Confirmed 08/20/22] doxycycline hyclate 100 mg tablet 100 mg PO BID 08/20/22 [History Confirmed 08/20/22] lisinopril 40 mg tablet 40 mg PO DAILY 08/20/22 [History Confirmed 08/20/22] promethazine 25 mg tablet mg 08/20/22 [History] tizanidine 4 mg tablet 4 mg PO TID PRN Muscle Spasm 08/20/22 [History Confirmed 08/20/22] Exam Physical Exam Vital Signs: Temp Pulse Resp BP Pulse Ox O2 Del Method 97.5 F L 85 16 103/68 99 Room Air 08/20/22 08:00 08/20/22 08:00 08/20/22 08:00 08/20/22 08:00 08/20/22 08:00 08/20/22 08:00 Additional Findings Additional Findings: LE EXAM: DERM: Left hallux has positive fibrous slough to medial lateral borders with notable positive erythema and redness and streaking up to dorsum of midfoot region of the left foot. Notable serosanguineous drainage from the left great toe region. Positive hair growth noted left foot. Negative fluctuance left great toe with negative ulcerations present but intense erythema to the left great toe up to the IPJ region of the hallux VASC: positive dp/pt pedals pulses to left NEURO: gross sensation absent to left and right foot MS: Positive POP to left hallux XRAY: Reviewed radiographs with negative findings of osteolysis of left great toe region with negative gas noted tissue Results Labs 08/20/22 06:47 08/20/22 06:47 Reviewed WBC of 8.1 ESR 47 mm/hr (0-19) H 08/20/22 00:19 Hemoglobin A1c 9.3 % (4.3-5.6) H 08/20/22 06:47 Assessment/Plan (1) Cellulitis of left foot: Plan: 1. Patient continues IV antibiotics and do recommend possible discharge in nearfuture with oral antibiotic for the next 7 to 10 days or per recommendation of infectious disease and appreciate infectious disease consult today. Reviewed labs and x-ray today 2. Patient had incision and drainage of abscess to left great toe with normal sterile saline flush and total temporary nail avulsion to left hallux. Patient consented to procedure today and had sterile prep and drape of the left great toe region with approximately 3 cc of Xylocaine 2% plain injected in a digital block fashion which point time utilizing a suture kit the left great toenail wasavulsed and normal sterile saline flush to the left nailbed was performed. Dry sterile dressing was then applied patient tolerated anesthesia procedure well. Advise Neosporin and dry sterile dressing for the next 7 days to be applied daily. 3. Request patient to follow-up in office once discharge for diabetic foot examand instructions in the future as well as possible further surgical interventionfor ankle issues which she missed prior appointment 1 year ago and expressed interest in possibly having surgery again. No further follow-up at this time please contact podiatry if any further issues Code(s): L03.116 - Cellulitis of left lower limb (2) Abscess of toenail on left foot: Code(s): L03.032 - Cellulitis of left toe (3) Onychocryptosis: Code(s): L60.0 - Ingrowing nail (4) Toe pain, left: Code(s): M79.675 - Pain in left toe(s) (5) Diabetes mellitus due to underlying condition with diabetic neuropathy, without long-term current use of insulin: Code(s): E08.40 - Diabetes mellitus due to underlying condition with diabetic neuropathy,unspecified Documented By: Swapnil Castillo DPM 08/20/22 1306 Signed By: <Electronically signed by LUPE Castillo> 08/20/22 3784 [facility] Work Phone: Consult note Author Shameka Romero [facility] August 21, 2022 4:02pm Note Date/Time August 21, 2022 4:0 0pm [facility] [address] [place] [address] Vascular Surgery Consult Note Signed Patient: Addie Jean Baptiste MR#: [id number] : 1975 Acct:[id number] Age/Sex: 47 / F Adm Date: 3 Loc: Room: [address] [place] [address] Type: ADM IN Attending Dr: Jeana Martini MD Copies to: MD Jeana Dennis MD~ HPI Consult HPI Reason for consult: Left great toe ulcer History of present illness: Ms. Jean Baptiste is a 47 year old female with a left great toe ulcer. Vascular surgerywas asked to see her with regards to this problem. She also has diminished blood flow in her left foot. Patient states this been present for over a week or 2. This patient does have longstanding diabetes she also has a Mediport in for IV access and she has a pacemaker and defibrillator. cc:: CC: Jeana Martini MD Data of Consult Consult date: 08/21/2022 Requesting Physician: Jeana Martini MD [facility] Vaccinated for COVID-19?: Yes Medical History Anxiety Arthritis Bipolar disorder Cardiac defibrillator in place Depression Diabetes Migraine Port-A-Cath in place Pseudoseizure Restless leg syndrome Schizophrenia Sciatica Seizures TIA (transient ischemic attack) Vertigo Surgical History History of foot surgery left foot plate History of hysterectomy Hx of cholecystectomy Pacemaker Family History Father CAD (coronary artery disease) Diabetes HTN (hypertension) Mother Seizures Brother Blood disease Social History Smoking Status: Current every day smoker Tobacco Type: e-cigarettes Substance Use Type: None Social History Comments: infusaport Allergies & Active Medications Medications and Allergies Allergies adhesive tape Allergy (Verified 08/19/22 21:48) Hives codeine Allergy (Verified 08/19/22 21:48) Vomiting fentanyl Allergy (Verified 08/19/22 21:48) Hives ibuprofen Allergy (Verified 08/19/22 21:48) Unknown Reaction Iodinated Contrast Media Allergy (Verified 08/19/22 21:48) Unknown Reaction ketorolac [From Toradol] Allergy (Verified 08/19/22 21:48) Vomiting latex Allergy (Verified 08/19/22 21:48) Hives propoxyphene [From Darvocet-N] Allergy (Verified 08/19/22 21:48) Vomiting tramadol Allergy (Verified 08/19/22 21:48) Vomiting vancomycin Allergy (Verified 08/19/22 21:48) Unknown Reaction linezolid [From Zyvox] Adverse Reaction (Verified 08/19/22 21:48) Vomiting Exam Physical Exam Vital Signs: Temp Pulse Resp BP Pulse Ox O2 Del Method 97.5 F L 111 H 16 111/72 98 Room Air 08/21/22 13:05 08/21/22 13:05 08/21/22 13:05 08/21/22 13:05 08/21/22 13:05 08/21/22 13:05 Results Labs 08/21/22 05:20 08/21/22 05:20 Labs: Laboratory Results - last 24 hr 08/20/22 08/20/22 08/21/22 16:13 21:04 05:20 Corrected WBC 8.2 Uncorrected WBC Count 8.2 RBC 3.41 L Hgb 10.7 L Hct 31.3 L MCV 91.8 MCH 31.5 MCHC 34.3 RDW 14.5 Plt Count 291 MPV 6.9 Neut % (Auto) 69.4 Lymph % (Auto) 20.6 Mills % (Auto) 7.4 Eos % (Auto) 1.8 Baso % (Auto) 0.8 Nucleat RBC Rel Count 0.0 Neut # (Auto) 5.7 Lymph # (Auto) 1.7 Mills # (Auto) 0.6 Eos # (Auto) 0.2 Baso # (Auto) 0.1 PHA Creatinine Clear Sodium Potassium Chloride Carbon Dioxide Anion Gap BUN Creatinine Est GFR (CKD-EPI) Glucose POC Glucose 97 97 POC Glucose Comment Glu2: cleaned meter Glu2: cleaned meter Calcium Magnesium 08/21/22 08/21/22 08/21/22 05:20 05:31 11:11 Corrected WBC Uncorrected WBC Count RBC Hgb Hct MCV MCH MCHC RDW Plt Count MPV Neut % (Auto) Lymph % (Auto) Mills % (Auto) Eos % (Auto) Baso % (Auto) Nucleat RBC Rel Count Neut # (Auto) Lymph # (Auto) Mills # (Auto) Eos # (Auto) Baso # (Auto) PHA Creatinine Clear 58.52 Sodium 142 Potassium 4.3 Chloride 109 H Carbon Dioxide 26.3 Anion Gap 11.0 BUN 18 Creatinine 1.47 H D Est GFR (CKD-EPI) 44.592 Glucose 119 H POC Glucose 109 81 POC Glucose Comment Glu2: cleaned meter Calcium 8.9 Magnesium 1.4 L PT 12.2 Seconds (9.0-12.9) 08/20/22 00:19 APTT 62.3 Seconds (25.1-36.5) H 08/20/22 00:19 A&P - Vascular (1) Toe infection: Code(s): L08.9 - Local infection of the skin and subcutaneous tissue, unspecified Status: Acute (2) Peripheral vascular disease: Plan: I did review the patient's noninvasive arterial studies. She has diminished some blood supply to her left foot and toe. She is at risk for amputation of her leg. I suggest we try and organize a diagnostic and possibly therapeutic angiography to improve the blood supply to her foot and toe. She has a contrastallergy and she would be at higher risk for this based on her BMI. Unfortunately I did notice that her creatinine jumped yesterday. We may need tohydrate her and resolve her acute renal insufficiency before we attempt this procedure. We may need to do this as an outpatient next week. We will see and evaluate her again in the morning. Code(s): I73.9 - Peripheral vascular disease, unspecified Status: Acute Documented By: Shameka Romero MD 08/21/22 0733 Signed By: <Electronically signed by Shameka Romero MD> 08/21/22 8814 [facility] Work Phone: Discharge summary Author Jeana Martini [facility] August 22, 2022 1:35pm Note Date/Time August 22, 2022 1:3 0pm [facility] [address] [place] [address] Discharge Summary Signed Patient: Addie Jean Baptiste MR#: [id number] : 1975 Acct:[id number] Age/Sex: 47 / F Adm Date: 3 Loc: Room: [address] [place] [address]: Jeana Martini MD Copies to: aLurent Franco INFORMATION ASSURANCE ANALYSTKandi Martini MD~ Providers Date of Discharge: 08/22/22 Discharging Provider: Jeana Martini Primary Care Provider: Laurent Franco Consults: 08/20/22 03:41 Consult to Podiatry Routine 08/20/22 09:42 Consult to Infectious Diseases Routine 08/21/22 10:07 Consult to Vascular Surgery Routine Discharge Diagnosis (1) Peripheral vascular disease: (2) Abscess of toenail on left foot: (3) Diabetes: (4) Nicotine dependence: (5) Diabetic foot infection: (6) Hypertension: (7) Hypomagnesemia: (8) Hypophosphatemia: Final Diagnosis Final Discharge Diagnosis: As listed above and others that are not listed Summary Hospital Course Hospital course: Patient came in with persistent pain and swelling involving the left great toe. Patient was admitted and started on intravenous antibiotic Patient was seen by nitrate operator who recommended and performed bedside incision and drainage to abscess. Patient is cleared by podiatry and infectious disease to be discharged home on oral Augmentin after receiving few days of intravenous Unasyn. I ordered arterial Doppler which came back positive for peripheral vascular disease. Patient was seen by vascular surgeon who recommended angiogram. Patient was taken to the angiogram suite however this could not be completed dueto patient anxiety and claustrophobia. No clinical evidence of acute vascular compromise. Vascular surgeon Dr. Romero recommended elective angiogram within the next week or 2. Patient will be arranged to follow-up with him. Diabetes, uncontrollable. Patient has insulin pump with a baseline rate infusion as well as as needed insulin coverage. Patient would not allow nursingstaff to inject her with insulin or manage her diabetes. Patient will be recommended to start taking aspirin and statin given her diabetes, hypertension and PVD. Patient was found to have vitamin D deficiency for which she will be started on vitamin D 50,000 units weekly for 4 weeks Hypertension. Patient went came in her blood pressure was elevated. She was started on amlodipine. Subsequently her blood pressure dropped down which had led to the development of a transient SOLO. Blood pressure was placed on hold. Patient was given IV fluid infusion. Her SOLO had improved so is her blood pressure Patient will be discharged same home preadmission BP meds however these will need to be titrated up and down in the outpatient setting to achieve optimal control over extended period of time. Patient has multiple complex medical issues. All appear to be stable. I do nothave any clear or strong clinical justification to extend inpatient hospitalization. Patient however will require close and the frequent monitoringas well as additional work-up, investigation and therapeutic intervention that could take place from this point on post discharge. That is to prevent relapse,decompensation, rehospitalization and other medical implications. Time Spent with Patient Time spent providing/coordinating discharge services (# min): 45 Surgeries and Procedures Operation Date: 08/22/22 09:05 <No data on this case meets the specified criteria> Diagnostic Studies Completed and Pending Studies Pending studies at discharge: 08/20/22 09:30 Urine Culture Routine 08/20/22 15:49 Blood Culture Routine 08/23/22 05:00 Basic Metabolic Panel [CHEM] IN AM Magnesium [CHEM] IN AM Preliminary micro results at discharge 08/20/22 10:13 Blood Culture - Preliminary Blood - Right Antecubital No Growth 2 Days 08/20/22 15:49 Blood Culture - Preliminary Blood - Port No Growth 1 Day Labs on day of discharge: 08/22/22 11:23: POC Glucose 207 08/22/22 06:43: POC Glucose 140, POC Glucose Comment Glu2: cleaned meter 08/22/22 05:50: PHA Creatinine Clear 70.62, Sodium 143, Potassium 4.0, Chloride 111 H, Carbon Dioxide 25.9, Anion Gap 10.1, BUN 20, Creatinine 1.22 H, Est GFR (CKD- EPI) 55.771, Glucose 141 H, Calcium 8.1 L, Phosphorus 3.8, Magnesium 1.6 L 08/21/22 21:19: POC Glucose 339, POC Glucose Comment Glu2: cleaned meter 08/21/22 16:25: POC Glucose 206, POC Glucose Comment Glu2: cleaned meter Exam Physical Exam Vital Signs: Temp Pulse Resp BP Pulse Ox O2 Del Method 98 F 76 18 139/99 99 Room Air 08/22/22 08:00 08/22/22 08:00 08/22/22 08:00 08/22/22 08:00 08/22/22 08:00 08/22/22 08:00 Narrative: [pt is awake and alert. oriented to place, time and person, morbidly obese HEENT: [place] conjunctiva and NL buccal mucosa Neck: Supple, no tenderness Endocrine: No Thyromegaly. Vascular: No JVD or carotid bruit. Lymphatic: No cervical lymphadenopathy. Chest: CTA no DTP. Heart RRR, no extra sound or murmur. Abd: Soft, no tenderness, no rebound and no rigidity. Increase abd girth therefore clinically I could not exclude the possibility of intra abd mass or organomegaly. LE: No cyanosis or clubbing, no varices or edema. Toe and foot are wrapped after incision and drainage was completed by podiatry on 08/20. To be inspected by podiatry and infectious disease. Neuro: A A O. Nl speech, comprehension and attention. Nl and symetrical motor and tone examination through out. []] Discharge Plan Discharge Plan Additional Instructions: I may not have addressed or treated all of your medical illnesses or the abnormal blood work or imaging studies during this hospitalization. Please ask your primary care provider to obtain [facility] records entirely to follow up on all of the abnormal physical, laboratory, and imaging findings that I have not addressed. Please follow-up with Dr. Romero to evaluate your circulation Please return back to the emergency room or seek medical attention if your symptoms worsen or return. Discharging you from [facility] does not mean that your medical care ends here and now. You may still need additional monitoring, work up, investigation, and treatment plan to be handled from this point on by out patient providers including your primary care provider and specialists. For any medication question, please contact your retail pharmacist or your primary care provider. Thank you. Instructions: Peripheral Vascular (Arterial) Disease (DC) Prescriptions: New amoxicillin-pot clavulanate 500-125 mg tablet 1 tab PO Q8H 10 Days Qty: 30 0RF atorvastatin 40 mg Tablet 40 mg PO QPM Qty: 30 1RF aspirin 81 mg Tablet,Delayed Release (Dr/Ec) 81 mg PO DAILY Qty: 30 1RF ergocalciferol (vitamin D2) 1,250 mcg (50,000 unit) Capsule 1,250 mcg PO Q7D Qty: 4 0RF Saccharomyces boulardii 250 mg Capsule 250 mg PO BID.WITH.MEALS Qty: 60 0RF Continued levothyroxine 75 mcg tablet 75 mcg PO DAILY Patient Comments: metformin 1,000 mg tablet 1,000 mg PO BID Patient Comments: Prilosec 10 mg Susp,Delayed Release For Recon 40 mg PO DAILY insulin lispro [Admelog U-100 Insulin lispro] 100 unit/mL Solution See Rx Instructions .ROUTE .COMPLEX Protocol: Custom Scale - Custom (Blank) Condition: Dose/Route: Instruction: Condition: Fingerstick Blood Glucose Dose/Route: Insulin Units Condition: mg/dl Condition: mg/dl Condition: mg/dl Condition: mg/dl Condition: mg/dl Condition: mg/dl Condition: mg/dl Condition: mg/dl Condition: mg/dl Condition: mg/dl Condition: Greater than or = 400 mg/dl Instruction: Call Provider Condition: Custom Scale 1:___ Instruction: GIVE 1 UNIT OF ASPART FOR EVERY ___MG GLUCOSE Instruction: STARTING AT 150MG AT BG CHECKS Protocol Text: *If the corrective scale dose has been administered within the past 4 hours, do not use corrective scale again unless approved by prescriber* Patient Comments: patient unaware of scal Rx Instructions: Patient uses up to 200 Units of Insulin delivered via Omnipod. levetiracetam 500 mg tablet 750 mg PO BID pregabalin 150 mg capsule 150 mg PO HS quetiapine 400 mg tablet 800 mg PO HS tizanidine 4 mg tablet 4 mg PO TID PRN (Reason: Muscle Spasm) Patient Comments: TAKE ONE TABLET BY MOUTH THREE TIMES A DAY NEEDED FOR MUSCLE SPASTICITY promethazine 25 mg tablet Changed lisinopril 40 mg tablet 40 mg PO DIRECTED Qty: 60 0RF Rx Instructions: Take half a tablet daily for 2 days then 1 tablet daily Discontinued doxycycline hyclate 100 mg tablet 100 mg PO BID Other Ambulatory Orders: DME Home Medical Equipment (Routine) Timeframe: [id number] Location: Determined by Patient Ordered By: Jeana Martini Follow Up: Swapnil Castillo DPM [Active Staff] - Shameka Romero MD [Active Staff] - (Please follow-up in the office in 1 to 2 weeks. Please call for appointment.) [facility] [Physician] - 08/25/22 10:15 am (Follow-up with your Primary Care Provider, call office to reschedule if needed. ) Documented By: Jeana Martini MD 08/22/22 1325 Signed By: <Electronically signed by Jeana Martini MD> 08/22/22 1335 [facility] Work Phone: Evaluation + Plan note Future Appointments Appointment Date:09/02/2021 02:45:00 PM Scheduled Provider:Milena STEVENS, Kirk Hsu [facility] Type:Cardiology New Patient (FT) Appointment Date:10/30/2021 03:40:00 PM Scheduled Provider:Breanna Gu CNP Location:[facility] Appointment Type:FM Open Future Scheduled Tests Laboratory* HgbA1c 07/29/21 * Microalbumin Level Urine 07/29/21 * CBC w/ Auto Diff 07/29/21 * Comprehensive Metabolic Panel 07/29/21 * Lipid Panel 07/29/21 * Thyroid Stimulating Hormone 07/29/21 [facility]ments Appointment Date:10/15/2021 01:00:00 PM Scheduled Provider:Nancy GUTIERREZ CNP [facility] Type:Cardiology Follow Up (FT) Appointment Date:10/30/2021 03:40:00 PM Scheduled Provider:Breanna Gu CNP Location:[facility] Appointment Type:FM Open Future Scheduled Tests Laboratory* HgbA1c 07/29/21 * Microalbumin Level Urine 07/29/21 * CBC w/ Auto Diff 07/29/21 * Comprehensive Metabolic Panel 07/29/21 * Lipid Panel 07/29/21 * Thyroid Stimulating Hormone 07/29/21 [facility] Future Appointments Appointment Date:09/30/2021 02:00:00 PM Scheduled Provider:Breanna Gu CNP Location:[facility] Appointment Type:FM Open Appointment Date:10/15/2021 01:00:00 PM Scheduled Provider:Nancy GUTIERREZ CNP [facility] Type:Cardiology Follow Up (FT) Appointment Date:10/30/2021 03:40:00 PM Scheduled Provider:Breanna Gu CNP Location:[facility] Appointment Type:FM Open Future Scheduled Tests Laboratory* HgbA1c 07/29/21 * Microalbumin Level Urine 07/29/21 * CBC w/ Auto Diff 07/29/21 * Comprehensive Metabolic Panel 07/29/21 * Lipid Panel 07/29/21 * Thyroid Stimulating Hormone 07/29/21 Radiology* Echo Transthoracic Complete 09/03/21 [facility] Future Appointments Appointment Date:10/15/2021 01:00:00 PM Scheduled Provider:Nancy GUTIERREZ CNP [facility] Type:Cardiology Follow Up (FT) Appointment Date:01/01/2022 02:00:00 PM Scheduled Provider:Breanna Gu CNP Location:[facility] Appointment Type:FM Open Future Scheduled Tests Laboratory* HgbA1c 09/30/21 * HgbA1c 07/29/21 * Microalbumin Level Urine 07/29/21 * CBC w/ Auto Diff 07/29/21 * Comprehensive Metabolic Panel 07/29/21 * Lipid Panel 07/29/21 * Thyroid Stimulating Hormone 09/30/21 * Thyroid Stimulating Hormone 07/29/21 Radiology* Echo Transthoracic Complete 09/03/21 [facility] Primary Care Evaluation + Plan note Future Appointments Appointment Date:10/15/2021 01:00:00 PM Scheduled Provider:Nancy GUTIERREZ CNP [facility] Type:Cardiology Follow Up (FT) Appointment Date:01/01/2022 02:00:00 PM Scheduled Provider:Breanna Gu CNP Location:[facility] Appointment Type:FM Open Future Scheduled Tests Laboratory* HgbA1c 07/29/21 * Thyroid Stimulating Hormone 07/29/21 Radiology* Echo Transthoracic Complete 09/03/21 [facility] Future Appointments Appointment Date:10/15/2021 01:00:00 PM Scheduled Provider:Nancy GUTIERREZ CNP [facility] Type:Cardiology Follow Up (FT) Appointment Date:01/01/2022 02:00:00 PM Scheduled Provider:Breanna Gu CNP Location:[facility] Appointment Type:FM Open Future Scheduled Tests Laboratory* HgbA1c 07/29/21 * Thyroid Stimulating Hormone 07/29/21 Radiology* NM Myocardial Spect Rest/Stress 1 Day 10/07/21 * Echo Transthoracic Complete 09/03/21 [facility] Future Appointments Appointment Date:11/14/2021 12:15:00 PM Scheduled Provider: [facility] App[facility] Type:NM Myocard Spect Multi Rest/Stress-Res Appointment Date:11/14/2021 01:15:00 PM Scheduled Provider: [facility] App[facility] Type:NM Myocard Spect Multi Rest/Stress - R Appointment Date:11/14/2021 01:45:00 PM Scheduled Provider: [facility] App[facility] Type:NM Myocard Spect Multi Rest/Stress-Str Appointment Date:11/14/2021 02:45:00 PM Scheduled Provider: [facility] App[facility] Type:NM Myocar Spect Multi Rest/Stress - St Appointment Date:11/20/2021 11:45:00 AM Scheduled Provider:Yuriy Fraser MD [facility] Type:Cardiology Follow Up (FT) Appointment Date:01/01/2022 02:00:00 PM Scheduled Provider:Breanna Gu CNP Location:[facility] Appointment Type:FM Open Diagnostic Tests Pending * Urine Culture 10/30/21 Future Scheduled Tests Laboratory* Fecal WBC Lactoferrin 10/30/21 * HgbA1c 07/29/21 * Enteric Panel by PCR 10/30/21 * Thyroid Stimulating Hormone 07/29/21 Radiology* NM Myocardial Spect Rest/Stress 1 Day 11/14/21 * Echo Transthoracic Complete 09/03/21 [facility] Future Appointments Appointment Date:11/20/2021 11:45:00 AM Scheduled Provider:Yuriy Fraser MD [facility] Type:Cardiology Follow Up (FT) Appointment Date:12/02/2021 10:00:00 AM Scheduled Provider:Breanna Gu CNP Location:[facility] Appointment Type: ER/Hospital Follow Up Appointment Date:01/01/2022 02:00:00 PM Scheduled Provider:Breanna Gu CNP Location:[facility] Appointment Type: Open Future Scheduled Tests Laboratory* Fecal WBC Lactoferrin 10/30/21 * HgbA1c 07/29/21 * Enteric Panel by PCR 10/30/21 * Thyroid Stimulating Hormone 07/29/21 Radiology* Echo Transthoracic Complete 09/03/21 [facility] Future Appointments Appointment Date:12/02/2021 10:00:00 AM Scheduled Provider:Breanna Gu CNP Location:[facility] Appointment Type: ER/Hospital Follow Up Appointment Date:01/01/2022 02:00:00 PM Scheduled Provider:Breanna Gu CNP Location:[facility] Appointment Type: Open Future Scheduled Tests Laboratory* Fecal WBC Lactoferrin 10/30/21 * HgbA1c 07/29/21 * Enteric Panel by PCR 10/30/21 * Thyroid Stimulating Hormone 07/29/21 Radiology* Echo Transthoracic Complete 09/03/21 [facility] Future Appointments Appointment Date:12/16/2021 08:30:00 AM Scheduled Provider: [facility] Appointment Type:NM Myocard Spect Multi Rest/Stress-Res Appointment Date:12/16/2021 09:30:00 AM Scheduled Provider: [facility] Appointment Type:NM Myocard Spect Multi Rest/Stress - R Appointment Date:12/16/2021 10:00:00 AM Scheduled Provider: [facility] Appointment Type:NM Myocard Spect Multi Rest/Stress-Str Appointment Date:12/16/2021 11:00:00 AM Scheduled Provider: [facility] Appointment Type:NM Myocar Spect Multi Rest/Stress - St Appointment Date:01/01/2022 02:00:00 PM Scheduled Provider:Breanna Gu CNP Location:[facility] Appointment Type:FM Open Future Scheduled Tests Laboratory* Fecal WBC Lactoferrin 10/30/21 * HgbA1c 07/29/21 * Enteric Panel by PCR 10/30/21 * Thyroid Stimulating Hormone 07/29/21 Radiology* NM Myocardial Spect Rest/Stress 1 Day 12/16/21 * Echo Transthoracic Complete 09/03/21 [facility] Primary Care Evaluation + Plan note Future Appointments Appointment Date:01/01/2022 02:00:00 PM Scheduled Provider:Breanna Gu CNP Location:[facility] Appointment Type:FM Open Future Scheduled Tests Laboratory* Fecal WBC Lactoferrin 10/30/21 * HgbA1c 07/29/21 * Enteric Panel by PCR 10/30/21 * Thyroid Stimulating Hormone 07/29/21 Radiology* NM Myocardial Spect Rest/Stress 1 Day 12/16/21 * Echo Transthoracic Complete 09/03/21 [facility] Diagnosis Other insomnia- Primary documented in this encounter [facility] Work Phone: evaluation note* Diagnosis Onset Date Resolution Status Diabetic foot infection acut e Hypertension acute Hypokalemia acute Hypomagnesemia acute [facility] Work Phone: evaluation note* Diagnosis Onset Date Resolution Status Abscess of toenail on left foot acute Cellulitis of left foot acut e [id number] acute Diabetic foot infection acut e Hypertension acute Hypokalemia acute Hypomagnesemia acute Hypophosphatemia acute Onychocryptosis acute Peripheral vascular disease acute Toe infection acute Toe pain, left acute Diabetes chronic Nicotine dependence chronic [facility] Work Phone: Evaluation noteNo [place] [employer] Other Evaluation note* Diagnosis Weakness of lower extremity, unspecified laterality- Primary Urinary incontinence, unspecified type Saddle anesthesia Disturbance of skin sensation Type 2 diabetes mellitus with diabetic neuropathy, unspecified whether joint terminal attack controller insulin use (HCC) [facility] Diagnosis Right knee pain, unspecified chronicity- Primary [facility]* Diagnosis Strain of right hamstring, initial encounter- Primary Strain of right knee, initial encounter Other specified diabetes mellitus with other specified complication, unspecified whether retirement insulin use ([facility]) [facility]* Diagnosis Chest pain, unspecified type- Primary Chest pain, unspecified type Flank pain Abdominal pain, unspecified site Type 2 diabetes mellitus with other specified complication, unspecified whether retirement insulin use (HCC) Seizure (HCC) Other convulsions [facility]* Diagnosis Chest pain- Primary Unspecified chest pain Chest pain, unspecified type Diabetic peripheral neuropathy (HCC) Type II or unspecified type diabetes mellitus with neurological manifestations, not stated as uncontrolled Seizure disorder (HCC) Unspecified epilepsy without mention of intractable epilepsy Morbid obesity (HCC) Morbid obesity Seizure (HCC) Other convulsions Seizures (HCC) Other convulsions Bipolar 1 disorder (HCC) Diabetic infection of left foot (HCC) Metabolic acidosis, normal anion gap (NAG) Acidosis SOLO (acute kidney injury) ([facility]) Abscess of chin Cellulitis and abscess of face Pacemaker Cardiac pacemaker in situ History of MRSA infection Hypertension, unspecified type Cellulitis of chin Cellulitis and abscess of face [facility] Diagnosis Non-recurrent acute suppurative otitis media of left ear without spontaneous rupture of tympanic membrane- Primary Type 2 diabetes mellitus with diabetic polyneuropathy, with long-term current use of insulin (HCC) Diabetic ulcer of right foot associated with type 2 diabetes mellitus, unspecified part of foot, unspecified ulcer stage (HCC) Diabetic peripheral neuropathy (HCC) Type II or unspecified type diabetes mellitus with neurological manifestations, not stated as uncontrolled Hypertensive urgency Chronic obstructive pulmonary disease, unspecified COPD type (HCC) Chronic chest pain Unspecified chest pain S/P placement of cardiac pacemaker Hypothyroidism, unspecified type Seizures (HCC) Other convulsions Bipolar 1 disorder ([facility]) Insomnia, unspecified type Gastroesophageal reflux disease, unspecified whether esophagitis present Generalized weakness Muscle spasms of both lower extremities Vitamin B12 deficiency Other B-complex deficiencies Vitamin D deficiency Incontinence of feces, unspecified fecal incontinence type Cigarette nicotine dependence without complication Screening for cervical cancer Screening for malignant neoplasm of the cervix Encounter for screening mammogram for malignant neoplasm of breast Encounter for vaccination documented in this encounter [facility] Diagnosis Left-sided weakness- Primary Visual loss, left eye Unqualified visual loss, one eye Acute effusion of left ear Diabetic ulcer of right foot associated with type 2 diabetes mellitus, unspecified part of foot, unspecified ulcer stage (HCC) Gastroesophageal reflux disease, unspecified whether esophagitis present Weight gain Other symptoms concerning nutrition, metabolism, and development [facility] Diagnosis Bipolar 1 disorder (HCC)- Primary [facility] Diagnosis Bipolar 1 disorder (HCC)- Primary Type 2 diabetes mellitus with diabetic polyneuropathy, with long-term current use of insulin (HCC) Seizures (HCC) Other convulsions Incontinence in female [facility]* Diagnosis Post traumatic stress disorder (PTSD)- Primary Bipolar 1 disorder (HCC) Insomnia, unspecified type Generalized anxiety disorder [facility]* Diagnosis Type 2 diabetes mellitus with diabetic polyneuropathy, with long-term current use of insulin ([facility])- Primary Muscle spasms of both lower extremities [facility]* Diagnosis Muscle spasms of both lower extremities [facility]* Diagnosis Pain of left lower leg- Primary [facility] Muscle spasms of both lower extremities [facility] Diagnosis Chronic pain syndrome- Primary Muscle spasms of both lower extremities Urinary incontinence, unspecified type Chronic nonintractable headache, unspecified headache type Chronic obstructive pulmonary disease, unspecified COPD type ([facility]) Type 2 diabetes mellitus with diabetic polyneuropathy, with long-term current use of insulin (HCC) Diabetic peripheral neuropathy ([facility]) Type II or unspecified type diabetes mellitus with neurological manifestations, not stated as uncontrolled Diabetic ulcer of right foot associated with type 2 diabetes mellitus, unspecified part of foot, unspecified ulcer stage ([facility]) Hypothyroidism, unspecified type Primary hypertension Unspecified essential hypertension Hypercholesterolemia Pure hypercholesterolemia S/P placement of cardiac pacemaker Seizures (HCC) Other convulsions Bipolar 1 disorder (HCC) Gastroesophageal reflux disease, unspecified whether esophagitis present Vitamin D deficiency Vitamin B12 deficiency Other B-complex deficiencies Cigarette nicotine dependence without complication [facility]* Diagnosis Right foot ulcer, with fat layer exposed ([facility])- Primary [facility]* Diagnosis Chronic pain syndrome- Primary Muscle spasms of both lower extremities Urinary incontinence, unspecified type Chronic nonintractable headache, unspecified headache type Chronic obstructive pulmonary disease, unspecified COPD type (HCC) Type 2 diabetes mellitus with diabetic polyneuropathy, with long-term current use of insulin (HCC) Diabetic peripheral neuropathy (HCC) Type II or unspecified type diabetes mellitus with neurological manifestations, not stated as uncontrolled Diabetic ulcer of right foot associated with type 2 diabetes mellitus, unspecified part of foot, unspecified ulcer stage (HCC) Hypothyroidism, unspecified type Primary hypertension Unspecified essential hypertension Hypercholesterolemia Pure hypercholesterolemia S/P placement of cardiac pacemaker Seizures (HCC) Other convulsions Bipolar 1 disorder (HCC) Gastroesophageal reflux disease, unspecified whether esophagitis present Vitamin D deficiency Vitamin B12 deficiency Other B-complex deficiencies Cigarette nicotine dependence without complication [facility] Diagnosis Muscle spasms of both lower extremities [facility]* Diagnosis Bipolar 1 disorder ([facility])- Primary Post traumatic stress disorder (PTSD) Generalized anxiety disorder Insomnia, unspecified type [facility]* Diagnosis Primary hypertension- Primary Unspecified essential hypertension Subacute cough RUQ abdominal pain Abdominal pain, right upper quadrant Type 2 diabetes mellitus with diabetic polyneuropathy, with long-term current use of insulin ([facility]) Family history of pulmonary fibrosis [facility]* Diagnosis Subacute cough- Primary Family history of pulmonary fibrosis [facility]* Diagnosis Vision loss of left eye- Primary Unqualified visual loss, one eye 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, unspecified proliferative retinopathy type Nonproliferative diabetic retinopathy of right eye Type II or unspecified type diabetes mellitus with ophthalmic manifestations, not stated as uncontrolled Pseudophakia Lens replaced by other means Dry eye syndrome of bilateral lacrimal glands Tear film insufficiency, unspecified [facility] Muscle spasms of both lower extremities Type 2 diabetes mellitus with diabetic polyneuropathy, with long-term current use of insulin ([facility]) [facility]* Diagnosis Hearing loss of left ear, unspecified hearing loss type- Primary Lacunar stroke ([facility]) Unspecified cerebral artery occlusion with cerebral infarction Seizure (HCC) Other convulsions [facility]* Diagnosis Type 2 diabetes mellitus with diabetic polyneuropathy, with long-term current use of insulin ([facility])- Primary [facility]* Diagnosis Type 2 diabetes mellitus with diabetic polyneuropathy, with long-term current use of insulin ([facility]) [facility] Type 2 diabetes mellitus with diabetic polyneuropathy, with long-term current use of insulin (HCC)- Primary Proliferative diabetic retinopathy associated with type 2 diabetes mellitus, unspecified laterality, unspecified proliferative retinopathy type (HCC) Dyslipidemia Other and unspecified hyperlipidemia Essential hypertension Unspecified essential hypertension Obesity, unspecified classification, unspecified obesity type, unspecified whether serious comorbidity present [facility]* Diagnosis Type 2 diabetes mellitus with diabetic polyneuropathy, with long-term current use of insulin ([facility]) [facility]* Diagnosis Chronic pain syndrome- Primary Muscle spasms of both lower extremities DDD (degenerative disc disease), lumbar Degeneration of lumbar or lumbosacral intervertebral disc Lumbar radiculopathy Thoracic or lumbosacral neuritis or radiculitis, unspecified Other chronic pain Myofascial pain syndrome Unspecified myalgia and myositis Debilitated patient Unspecified debility [facility]* Diagnosis Primary hypertension- Primary Unspecified essential hypertension Upper respiratory tract infection, unspecified type Chronic obstructive pulmonary disease, unspecified COPD type ([facility]) Family history of pulmonary fibrosis Retinal hemorrhage of left eye Retinal hemorrhage [facility]* Diagnosis Chronic pain syndrome Urinary incontinence, unspecified type- Primary [facility]* Diagnosis DDD (degenerative disc disease), lumbar Degeneration of lumbar or lumbosacral intervertebral disc Lumbar radiculopathy Thoracic or lumbosacral neuritis or radiculitis, unspecified Muscle spasms of both lower extremities [facility]* Diagnosis Diabetic ulcer of left great toe (HCC)- Primary Diabetic ulcer of toe of left foot associated with type 2 diabetes mellitus, limited to breakdown of skin (HCC) Diabetic ulcer of left great toe (HCC) Seizures (HCC) Other convulsions Type 2 diabetes mellitus with diabetic polyneuropathy, with long-term current use of insulin ([facility]) [facility] Diagnosis Diabetic ulcer of right foot associated with type 2 diabetes mellitus, unspecified part of foot, unspecified ulcer stage ([facility])- Primary Primary hypertension Unspecified essential hypertension SOLO (acute kidney injury) ([facility]) Hypothyroidism, unspecified type Hyperlipidemia, unspecified hyperlipidemia type [facility]* Diagnosis Chronic pain syndrome [facility]* Diagnosis DDD (degenerative disc disease), lumbar Degeneration of lumbar or lumbosacral intervertebral disc Lumbar radiculopathy Thoracic or lumbosacral neuritis or radiculitis, unspecified [facility]* Diagnosis DDD (degenerative disc disease), lumbar Degeneration of lumbar or lumbosacral intervertebral disc Lumbar radiculopathy Thoracic or lumbosacral neuritis or radiculitis, unspecified [facility]* Diagnosis Diabetic ulcer of left great toe ([facility])- Primary [facility]* Diagnosis Bipolar 1 disorder ([facility]) Insomnia, unspecified type [facility]* Diagnosis Chronic pain syndrome- Primary DDD (degenerative disc disease), lumbar Degeneration of lumbar or lumbosacral intervertebral disc Lumbar radiculopathy Thoracic or lumbosacral neuritis or radiculitis, unspecified Other chronic pain Myofascial pain syndrome Unspecified myalgia and myositis Debilitated patient Unspecified debility [facility]* Diagnosis Diabetic ulcer of left great toe (HCC)- Primary Hypertensive urgency Chronic nonintractable headache, unspecified headache type Abnormal pigmentation of skin Pleuritic chest pain Painful respiration Type 2 diabetes mellitus with diabetic polyneuropathy, with long-term current use of insulin ([facility]) Chronic obstructive pulmonary disease, unspecified COPD type ([facility]) Hypothyroidism, unspecified type History of stroke Transient ischemic attack (TIA), and cerebral infarction without residual deficits Seizures ([facility]) Other convulsions Hypercholesterolemia Pure hypercholesterolemia Chronic pain syndrome Urinary incontinence, unspecified type Bipolar 1 disorder ([facility]) Insomnia, unspecified type Gastroesophageal reflux disease, unspecified whether esophagitis present Family history of pulmonary fibrosis Vitamin B12 deficiency Other B-complex deficiencies Vitamin D deficiency Cigarette nicotine dependence without complication Need for vaccination Need for prophylactic vaccination and inoculation against unspecified single disease [facility]* Diagnosis DDD (degenerative disc disease), lumbar Degeneration of lumbar or lumbosacral intervertebral disc Lumbar radiculopathy Thoracic or lumbosacral neuritis or radiculitis, unspecified [facility]* Diagnosis Cellulitis of chin- Primary Cellulitis and abscess of face Cellulitis Cellulitis and abscess of unspecified site Hyperglycemia Other abnormal glucose Severe sepsis (HCC) Type 2 diabetes mellitus with left diabetic foot infection (HCC) Diabetic infection of left foot (HCC) Abscess of chin Cellulitis and abscess of face Hypertension Unspecified essential hypertension Bipolar 1 disorder (HCC) Seizures (HCC) Other convulsions Primary hypertension- Primary Unspecified essential hypertension Diarrhea, unspecified type Abdominal cramping Abdominal pain, unspecified site Abdominal wound dehiscence, initial encounter Bipolar 1 disorder (HCC) Seizures (HCC) Other convulsions Chronic pain of both knees Urinary incontinence, unspecified type Candidiasis Abnormal pigmentation of skin [facility]* Diagnosis Cellulitis of chin- Primary Cellulitis and abscess of face Cellulitis Cellulitis and abscess of unspecified site Hyperglycemia Other abnormal glucose Severe sepsis (HCC) Type 2 diabetes mellitus with left diabetic foot infection (HCC) Diabetic infection of left foot (HCC) Abscess of chin Cellulitis and abscess of face Hypertension Unspecified essential hypertension Bipolar 1 disorder (HCC) Seizures (HCC) Other convulsions Chronic pain syndrome [facility]* Diagnosis Cellulitis of chin- Primary Cellulitis and abscess of face Cellulitis Cellulitis and abscess of unspecified site Hyperglycemia Other abnormal glucose Severe sepsis (HCC) Type 2 diabetes mellitus with left diabetic foot infection (HCC) Diabetic infection of left foot (HCC) Abscess of chin Cellulitis and abscess of face Hypertension Unspecified essential hypertension Bipolar 1 disorder (HCC) Seizures (HCC) Other convulsions Toe osteomyelitis (HCC)- Primary Unspecified osteomyelitis, ankle and foot Osteomyelitis of great toe (HCC) Diabetes mellitus due to underlying condition with hyperglycemia, with long-term current use of insulin (HCC) SIRS (systemic inflammatory response syndrome) (HCC) Systemic inflammatory response syndrome, unspecified Elevated troponin Other abnormal blood chemistry [facility]* Diagnosis Cellulitis of chin- Primary Cellulitis and abscess of face Cellulitis Cellulitis and abscess of unspecified site Hyperglycemia Other abnormal glucose Severe sepsis (HCC) Type 2 diabetes mellitus with left diabetic foot infection (HCC) Diabetic infection of left foot (HCC) Abscess of chin Cellulitis and abscess of face Hypertension Unspecified essential hypertension Bipolar 1 disorder (HCC) Seizures (HCC) Other convulsions DDD (degenerative disc disease), lumbar Degeneration of lumbar or lumbosacral intervertebral disc Lumbar radiculopathy Thoracic or lumbosacral neuritis or radiculitis, unspecified [facility]* Diagnosis Cellulitis of chin- Primary Cellulitis and abscess of face Cellulitis Cellulitis and abscess of unspecified site Hyperglycemia Other abnormal glucose Severe sepsis (HCC) Type 2 diabetes mellitus with left diabetic foot infection (HCC) Diabetic infection of left foot (HCC) Abscess of chin Cellulitis and abscess of face Hypertension Unspecified essential hypertension Bipolar 1 disorder (HCC) Seizures (HCC) Other convulsions Chronic pain syndrome [facility]* Diagnosis Cellulitis of chin- Primary Cellulitis and abscess of face Cellulitis Cellulitis and abscess of unspecified site Hyperglycemia Other abnormal glucose Severe sepsis (HCC) Type 2 diabetes mellitus with left diabetic foot infection (HCC) Diabetic infection of left foot (HCC) Abscess of chin Cellulitis and abscess of face Hypertension Unspecified essential hypertension Bipolar 1 disorder (HCC) Seizures (HCC) Other convulsions Chronic pain syndrome [facility]* Diagnosis Cellulitis of chin- Primary Cellulitis and abscess of face Cellulitis Cellulitis and abscess of unspecified site Hyperglycemia Other abnormal glucose Severe sepsis (HCC) Type 2 diabetes mellitus with left diabetic foot infection (HCC) Diabetic infection of left foot (HCC) Abscess of chin Cellulitis and abscess of face Hypertension Unspecified essential hypertension Bipolar 1 disorder (HCC) Seizures (HCC) Other convulsions Chronic pain syndrome [facility]* Diagnosis Cellulitis of chin- Primary Cellulitis and abscess of face Cellulitis Cellulitis and abscess of unspecified site Hyperglycemia Other abnormal glucose Severe sepsis (HCC) Type 2 diabetes mellitus with left diabetic foot infection (HCC) Diabetic infection of left foot (HCC) Abscess of chin Cellulitis and abscess of face Hypertension Unspecified essential hypertension Bipolar 1 disorder (HCC) Seizures (HCC) Other convulsions Diabetic foot infection (HCC)- Primary Postoperative infection, unspecified type, initial encounter Postoperative infection Other postoperative infection [facility]* Diagnosis Cellulitis of chin- Primary Cellulitis and abscess of face Cellulitis Cellulitis and abscess of unspecified site Hyperglycemia Other abnormal glucose Severe sepsis (HCC) Type 2 diabetes mellitus with left diabetic foot infection (HCC) Diabetic infection of left foot (HCC) Abscess of chin Cellulitis and abscess of face Hypertension Unspecified essential hypertension Bipolar 1 disorder (HCC) Seizures (HCC) Other convulsions Lumbar radiculopathy- Primary Thoracic or lumbosacral neuritis or radiculitis, unspecified Chronic pain syndrome DDD (degenerative disc disease), lumbar Degeneration of lumbar or lumbosacral intervertebral disc Encounter for monitoring opioid maintenance therapy Other chronic pain Myofascial pain syndrome Unspecified myalgia and myositis [facility]* Diagnosis Cellulitis of chin- Primary Cellulitis and abscess of face Cellulitis Cellulitis and abscess of unspecified site Hyperglycemia Other abnormal glucose Severe sepsis (HCC) Type 2 diabetes mellitus with left diabetic foot infection (HCC) Diabetic infection of left foot (HCC) Abscess of chin Cellulitis and abscess of face Hypertension Unspecified essential hypertension Bipolar 1 disorder (HCC) Seizures (HCC) Other convulsions Bipolar 1 disorder (HCC) Insomnia, unspecified type [facility]* Diagnosis Cellulitis of chin- Primary Cellulitis and abscess of face Cellulitis Cellulitis and abscess of unspecified site Hyperglycemia Other abnormal glucose Severe sepsis (HCC) Type 2 diabetes mellitus with left diabetic foot infection (HCC) Diabetic infection of left foot (HCC) Abscess of chin Cellulitis and abscess of face Hypertension Unspecified essential hypertension Bipolar 1 disorder (HCC) Seizures (HCC) Other convulsions Chronic pain syndrome DDD (degenerative disc disease), lumbar Degeneration of lumbar or lumbosacral intervertebral disc Lumbar radiculopathy Thoracic or lumbosacral neuritis or radiculitis, unspecified [facility]* Diagnosis Type II diabetes mellitus with neurological manifestations (CMS/HCC)- Primary Type II or unspecified type diabetes mellitus with neurological manifestations, not stated as uncontrolled Chronic foot ulcer with fat layer exposed, left (CMS/HCC) [facility]ulitis of left foot [facility] Cellulitis of chin- Primary Cellulitis and abscess of face Cellulitis Cellulitis and abscess of unspecified site Hyperglycemia Other abnormal glucose Severe sepsis (HCC) Type 2 diabetes mellitus with left diabetic foot infection (HCC) Diabetic infection of left foot (HCC) Abscess of chin Cellulitis and abscess of face Hypertension Unspecified essential hypertension Bipolar 1 disorder (HCC) Seizures (HCC) Other convulsions Seizures (HCC)- Primary Other convulsions Chronic nonintractable headache, unspecified headache type Primary hypertension Unspecified essential hypertension Sick sinus syndrome (HCC) Sinoatrial node dysfunction Type 2 diabetes mellitus with diabetic polyneuropathy, with long-term current use of insulin (HCC) Gastroesophageal reflux disease, unspecified whether esophagitis present [facility]* Diagnosis Cellulitis of chin- Primary Cellulitis and abscess of face Cellulitis Cellulitis and abscess of unspecified site Hyperglycemia Other abnormal glucose Severe sepsis (HCC) Type 2 diabetes mellitus with left diabetic foot infection (HCC) Diabetic infection of left foot (HCC) Abscess of chin Cellulitis and abscess of face Hypertension Unspecified essential hypertension Bipolar 1 disorder (HCC) Seizures (HCC) Other convulsions DDD (degenerative disc disease), lumbar Degeneration of lumbar or lumbosacral intervertebral disc Lumbar radiculopathy Thoracic or lumbosacral neuritis or radiculitis, unspecified Chronic pain syndrome [facility]* Diagnosis Cellulitis of chin- Primary Cellulitis and abscess of face Cellulitis Cellulitis and abscess of unspecified site Hyperglycemia Other abnormal glucose Severe sepsis (HCC) Type 2 diabetes mellitus with left diabetic foot infection (HCC) Diabetic infection of left foot (HCC) Abscess of chin Cellulitis and abscess of face Hypertension Unspecified essential hypertension Bipolar 1 disorder (HCC) Seizures (HCC) Other convulsions Bipolar 1 disorder (HCC)- Primary Chronic pain of both knees Degeneration of intervertebral disc of lumbar region with discogenic back pain Chronic pain syndrome Diabetic ulcer of left great toe (HCC) Type 2 diabetes mellitus with diabetic polyneuropathy, with long-term current use of insulin (HCC) Primary hypertension Unspecified essential hypertension Chronic nonintractable headache, unspecified headache type Abnormal pigmentation of skin Chronic obstructive pulmonary disease, unspecified COPD type (HCC) Hypothyroidism, unspecified type History of stroke Transient ischemic attack (TIA), and cerebral infarction without residual deficits Seizures (HCC) Other convulsions Hypercholesterolemia Pure hypercholesterolemia Urinary incontinence, unspecified type Gastroesophageal reflux disease, unspecified whether esophagitis present Family history of pulmonary fibrosis Candidiasis of breast Insomnia, unspecified type Vitamin B12 deficiency Other B-complex deficiencies Vitamin D deficiency Encounter for screening mammogram for malignant neoplasm of breast Encounter for health-related screening [facility]* Diagnosis Cellulitis of chin- Primary Cellulitis and abscess of face Cellulitis Cellulitis and abscess of unspecified site Hyperglycemia Other abnormal glucose Severe sepsis (HCC) Type 2 diabetes mellitus with left diabetic foot infection (HCC) Diabetic infection of left foot (HCC) Abscess of chin Cellulitis and abscess of face Hypertension Unspecified essential hypertension Bipolar 1 disorder (HCC) Seizures (HCC) Other convulsions Lumbar pain- Primary Lumbago [facility] Diagnosis Cellulitis of chin- Primary Cellulitis and abscess of face Cellulitis Cellulitis and abscess of unspecified site Hyperglycemia Other abnormal glucose Severe sepsis (HCC) Type 2 diabetes mellitus with left diabetic foot infection (HCC) Diabetic infection of left foot (HCC) Abscess of chin Cellulitis and abscess of face Hypertension Unspecified essential hypertension Bipolar 1 disorder (HCC) Seizures (HCC) Other convulsions Pain in both knees, unspecified chronicity- Primary [facility] Diagnosis Cellulitis of chin- Primary Cellulitis and abscess of face Cellulitis Cellulitis and abscess of unspecified site Hyperglycemia Other abnormal glucose Severe sepsis (HCC) Type 2 diabetes mellitus with left diabetic foot infection (HCC) Diabetic infection of left foot (HCC) Abscess of chin Cellulitis and abscess of face Hypertension Unspecified essential hypertension Bipolar 1 disorder (HCC) Seizures (HCC) Other convulsions DDD (degenerative disc disease), lumbar Degeneration of lumbar or lumbosacral intervertebral disc Lumbar radiculopathy Thoracic or lumbosacral neuritis or radiculitis, unspecified Chronic pain syndrome [facility] information available[facility] Work Phone: Evaluation note* Diagnosis Cellulitis of chin- Primary Cellulitis and abscess of face Cellulitis Cellulitis and abscess of unspecified site Hyperglycemia Other abnormal glucose Severe sepsis (HCC) Type 2 diabetes mellitus with left diabetic foot infection (HCC) Diabetic infection of left foot (HCC) Abscess of chin Cellulitis and abscess of face Hypertension Unspecified essential hypertension Bipolar 1 disorder (HCC) Seizures (HCC) Other convulsions Chronic pain syndrome [facility]* Diagnosis Cellulitis of chin- Primary Cellulitis and abscess of face Cellulitis Cellulitis and abscess of unspecified site Hyperglycemia Other abnormal glucose Severe sepsis (HCC) Type 2 diabetes mellitus with left diabetic foot infection (HCC) Diabetic infection of left foot (HCC) Abscess of chin Cellulitis and abscess of face Hypertension Unspecified essential hypertension Bipolar 1 disorder (HCC) Seizures (HCC) Other convulsions Degeneration of intervertebral disc of lumbar region with discogenic back pain and lower extremity pain- Primary Lumbar radiculopathy Thoracic or lumbosacral neuritis or radiculitis, unspecified Chronic pain syndrome [facility]* Diagnosis Cellulitis of chin- Primary Cellulitis and abscess of face Cellulitis Cellulitis and abscess of unspecified site Hyperglycemia Other abnormal glucose Severe sepsis (HCC) Type 2 diabetes mellitus with left diabetic foot infection (HCC) Diabetic infection of left foot (HCC) Abscess of chin Cellulitis and abscess of face Hypertension Unspecified essential hypertension Bipolar 1 disorder (HCC) Seizures (HCC) Other convulsions Myofascial pain syndrome- Primary Unspecified myalgia and myositis DDD (degenerative disc disease), lumbar Degeneration of lumbar or lumbosacral intervertebral disc Lumbar radiculopathy Thoracic or lumbosacral neuritis or radiculitis, unspecified Chronic pain syndrome documented in this encounter [facility] Author Ezekiel Mathew [facility] August 20, 2022 3:56am Note Date/Time August 20, 2022 3:5 6am [facility] [address] [place] [address] Hospitalist H&P Signed Patient: Addie Jean Baptiste MR#: [id number] : 1975 Acct:[id number] Age/Sex: 47 / F Adm Date: 3 Loc: Room: [address] [place] [address] Type: ADM INOo Attending Dr: Ezekiel Mathew DO Copies to: Laurent Mathew DO~ HPI DATE OF EXAMINATION: 08/20/22 CHIEF COMPLAINT: left great toe infection HISTORY OF PRESENT ILLNESS: This is a 47-year-old insulin requiring diabetic who came to the emergency room today because of infection and pain in her left great toe. She told the ER thatit been present for 1 month. She told the ER that she was cleaning it with Hibiclens. It seems like her primary care provider urged her to come to the emergency room. Earlier in the month, on July 31, she did fill prescriptions for Bactrim and Keflex. When I asked her about this she thought that it was a medicine for my cold. And then there is a prescription for doxycycline filledjust a day ago on August 19. The patient says that she follows with podiatry with Dr. Box. In the emergency room, given her allergies to vancomycin and Zyvox she was treated with IV Unasyn. Given her allergies to codeine, Toradol, fentanyl, tramadol, Motrin, and Darvocet they did offer her Tylenol. Her potassium was a little bit low at 3.3 in the ER did replace that her magnesium was low at 1.2 inthe ER did replace that. Markers of inflammation are mildly elevated with an ESR of 847 and a CRP mildly up at 1.9. When I asked the patient if she had been doing anything to treat her toe she told me she had not been doing anything. She was getting better information to the ER doctor when she described cleaning it with Hibiclens. She did notice redness and began to streak up her foot and count up into the lower part of her ankle and calf. Per her description there is not been any purulent drainage. Review of Systems Review of Systems Review of systems: 10 systems are reviewed and are negative except as mentioned elsewhere in the documentation. PMFSH Vaccinated for COVID-19?: Yes Medical History (Updated 08/20/22 @ 03:53 by Ezekiel Mathew DO) Anxiety Arthritis Bipolar disorder Cardiac defibrillator in place Depression Diabetes Migraine Port-A-Cath in place Pseudoseizure Restless leg syndrome Schizophrenia Sciatica Seizures TIA (transient ischemic attack) Vertigo Surgical History History of foot surgery left foot plate History of hysterectomy Hx of cholecystectomy Pacemaker Family History Father CAD (coronary artery disease) Diabetes HTN (hypertension) Mother Seizures Brother Blood disease Social History Smoking Status: Current every day smoker Tobacco Type: e-cigarettes Substance Use Type: None Social History Comments: infusaport Meds Medications and Allergies Allergies adhesive tape Allergy (Verified 08/19/22 21:48) Hives codeine Allergy (Verified 08/19/22 21:48) Vomiting fentanyl Allergy (Verified 08/19/22 21:48) Hives ibuprofen Allergy (Verified 08/19/22 21:48) Unknown Reaction Iodinated Contrast Media Allergy (Verified 08/19/22 21:48) Unknown Reaction ketorolac [From Toradol] Allergy (Verified 08/19/22 21:48) Vomiting latex Allergy (Verified 08/19/22 21:48) Hives propoxyphene [From Darvocet-N] Allergy (Verified 08/19/22 21:48) Vomiting tramadol Allergy (Verified 08/19/22 21:48) Vomiting vancomycin Allergy (Verified 08/19/22 21:48) Unknown Reaction linezolid [From Zyvox] Adverse Reaction (Verified 08/19/22 21:48) Vomiting Home Medications levothyroxine 75 mcg tablet 75 mcg PO DAILY 07/23/18 [History Confirmed 08/20/22] metformin 1,000 mg tablet 1,000 mg PO BID 07/23/18 [History Confirmed 08/20/22] omeprazole magnesium 10 mg oral suspension,delayed release (Prilosec) 40 mg PO DAILY 07/23/18 [History Confirmed 08/20/22] insulin lispro 100 unit/mL subcutaneous solution (Admelog U-100 Insulin lispro) See Rx Instructions .Route .COMPLEX 09/07/18 [History Confirmed 09/12/21] levetiracetam 500 mg tablet 750 mg PO BID 08/04/19 [History Confirmed 08/20/22] pregabalin 150 mg capsule 150 mg PO HS 08/04/19 [History Confirmed 08/20/22] quetiapine 400 mg tablet 800 mg PO HS 08/04/19 [History Confirmed 08/20/22] doxycycline hyclate 100 mg tablet 100 mg PO BID 08/20/22 [History Confirmed 08/20/22] lisinopril 40 mg tablet 40 mg PO DAILY 08/20/22 [History Confirmed 08/20/22] promethazine 25 mg tablet mg 08/20/22 [History] tizanidine 4 mg tablet 4 mg PO TID PRN Muscle Spasm 08/20/22 [History Confirmed 08/20/22] Exam Physical Exam Vital Signs: Temp Pulse Resp BP Pulse Ox O2 Del Method 97.9 F 70 16 176/105 H 100 Room Air 08/20/22 03:36 08/20/22 03:36 08/20/22 03:36 08/20/22 03:36 08/20/22 03:36 08/20/22 03:36 Narrative: GEN: Awake, alert, oriented x 3. Head: Normal Cephalic, Atraumatic. Eyes: Conjunctiva and sclera clear bilaterally. Nose: External nose and nares normal bilaterally. Mouth: Lips and tongue normal. Neck: No JVD. No thyromegaly. No lymphadenopathy. Lungs: Clear to auscultation bilaterally, no wheezing, no crackles. Heart: Regular rate and rhythm, no murmurs, rubs, or gallops. Abdomen: Soft, normal bowel sounds, no rigidity, guarding, or acute peritoneal signs. Extremities: No swelling or cords in the calves bilaterally, no edema in the ankles bilaterally. Left foot: The left great toe has redness in a circumferential area all around the tip of the toe. It is as if some of the skin is just been irritated like a blister. I do not see any focal areas of drainage. There is slight streaking going up into the forefoot and a little bit towards her ankle. Psychiatric: Calm. Conversant. Cooperative. Neuro: Awake, Alert, and Oriented x 3. No focal or lateralizing deficits. Results Lab Results Labs: Laboratory Last Values Corrected WBC 8.5 X10E3/uL (3.8-11.6) 08/20/22 00:19 Uncorrected WBC Count 8.5 x10E3/uL (3.8-11.6) 08/20/22 00:19 RBC 3.77 X10E6/uL (3.60-5.00) 08/20/22 00:19 Hgb 11.6 g/dL (11.8-15.4) L 08/20/22 00:19 Hct 34.4 % (34.0-46.4) 08/20/22 00:19 MCV 91.2 fl (80-100) 08/20/22 00:19 MCH 30.8 pg (24.7-34.3) 08/20/22 00:19 MCHC 33.8 g/dL (32.0-35.0) 08/20/22 00:19 RDW 14.5 % (11.9-15.3) 08/20/22 00:19 Plt Count 326 x10E3/uL (150-450) 08/20/22 00:19 MPV 6.9 fl (6.3-10.7) 08/20/22 00:19 Neut % (Auto) 64.7 % (.) 08/20/22 00:19 Lymph % (Auto) 27.3 % (.) 08/20/22 00:19 Mills % (Auto) 6.0 % (.) 08/20/22 00:19 Eos % (Auto) 1.3 % (.) 08/20/22 00:19 Baso % (Auto) 0.7 % (.) 08/20/22 00:19 Nucleat RBC Rel Count 0.0 /100 WBC (0-0.5) 08/20/22 00:19 Neut # (Auto) 5.5 x10E3/uL (1.8-7.7) 08/20/22 00:19 Lymph # (Auto) 2.3 x10E3/uL (1.00-4.8) 08/20/22 00:19 Mills # (Auto) 0.5 x10E3/uL (0.0-0.8) 08/20/22 00:19 Eos # (Auto) 0.1 x10E3/uL (0.0-0.45) 08/20/22 00:19 Baso # (Auto) 0.1 x10E3/uL (0.0-0.2) 08/20/22 00:19 Monocyte Dist Width 20.72 % (0.00-20.00) H 08/20/22 00:19 ESR 47 mm/hr (0-19) H 08/20/22 00:19 PT 12.2 Seconds (9.0-12.9) 08/20/22 00:19 INR 1.1 08/20/22 00:19 APTT 62.3 Seconds (25.1-36.5) H 08/20/22 00:19 PHA Creatinine Clear 91.29 08/20/22 00:19 Sodium 141 mmol/L (136-145) 08/20/22 00:19 Potassium 3.3 mmol/L (3.5-5.1) L 08/20/22 00:19 Chloride 105 mmol/L (98-107) 08/20/22 00:19 Carbon Dioxide 28.0 mmol/L (21.0-31.0) 08/20/22 00:19 Anion Gap 11.3 mEq/L (6.0-15.0) 08/20/22 00:19 BUN 15 mg/dL (7-25) 08/20/22 00:19 Creatinine 0.93 mg/dL (0.60-1.20) 08/20/22 00:19 Est GFR (CKD-EPI) > 60.0 08/20/22 00:19 Glucose 234 mg/dL (70-100) H 08/20/22 00:19 POC Glucose 226 mg/dl 08/20/22 01:00 Calcium 9.2 mg/dL (8.6-10.3) 08/20/22 00:19 Magnesium 1.2 mg/dL (1.9-2.7) L 08/20/22 00:19 Total Bilirubin 0.4 mg/dl (0.3-1.0) 08/20/22 00:19 AST 9 U/L (13-39) L 08/20/22 00:19 ALT 7 U/L (7-52) 08/20/22 00:19 Alkaline Phosphatase 82 U/L (34-104) 08/20/22 00:19 Troponin I High Sens 8.2 pg/mL (0.0-15.0) 08/20/22 00:19 C-Reactive Prot, Quant 1.9 mg/dL (0.0-0.5) H 08/20/22 00:19 Total Protein 6.4 gm/dL (6.4-8.9) 08/20/22 00:19 Albumin 3.6 gm/dL (3.5-5.7) 08/20/22 00:19 Globulin 2.8 gm/dL 08/20/22 00:19 Albumin/Globulin Ratio 1.3 08/20/22 00:19 Urine Color Yellow (Yellow) 08/20/22 01:07 Urine Appearance Clear (Clear) 08/20/22 01:07 Urine pH 6.5 (5.0-9.0) 08/20/22 01:07 Ur Specific [place] 1.017 (1.001-1.030) 08/20/22 01:07 Urine Protein 100 mg/dL (Negative) H 08/20/22 01:07 Urine Glucose (UA) >=1000 mg/dL (Normal) H 08/20/22 01:07 Urine Ketones Negative (Negative) 08/20/22 01:07 Urine Occult Blood Trace (Negative) H 08/20/22 01:07 Urine Nitrite Negative (Negative) 08/20/22 01:07 Urine Bilirubin Negative (Negative) 08/20/22 01:07 Urine Urobilinogen Normal mg/dL (Normal) 08/20/22 01:07 Ur Leukocyte Esterase Negative (Negative) 08/20/22 01:07 Urine RBC 5-9 /HPF (0-4) H 08/20/22 01:07 Urine WBC 10-19 /HPF (0-4) H 08/20/22 01:07 Ur Squamous Epith Cells 3-4 /HPF (0-2) H 08/20/22 01:07 Urine Bacteria 1+ (None Seen) H 08/20/22 01:07 Hyaline Casts 0-8 /LPF (0-8) 08/20/22 01:07 Urine Opiates Screen Negative (Negative) 08/20/22 01:07 Ur Barbiturates Screen Negative (Negative) 08/20/22 01:07 Ur Phencyclidine Scrn Negative (Negative) 08/20/22 01:07 Ur Amphetamines Screen Negative (Negative) 08/20/22 01:07 U Benzodiazepines Scrn Negative (Negative) 08/20/22 01:07 Urine Cocaine Screen Negative (Negative) 08/20/22 01:07 U Marijuana (THC) Screen Negative (Negative) 08/20/22 01:07 A&P - Hospitalist Assessment/Plan (1) Toe infection: (2) Diabetes: (3) Nicotine dependence: (4) Hypertension: (5) Hypomagnesemia: (6) Diabetic foot infection: Plan Assessment and plan: This is a 47-year-old woman who presented emergency room with left great toe infection. She does have insulin requiring diabetes and uses an Omnipod. Outpatient antibiotics including Bactrim and Keflex have been attempted without success. She states that she does have a nitrate operator with Dr. Box. Since his partner Dr. Castillo comes to the hospital I will consult him. I think that the Unasyn started by the emergency room is reasonable. She is okay to continue to use her Omnipod to manage her diabetes. She did have significantly elevated blood pressures in the emergency room, such as 176/105. I do not think that sheneeds additional IV fluids. I will have her get a dose of Lasix and spironolactone in the morning to remove excess volume. The ER did give her an early dose of her home medication of lisinopril 40 mg daily. Looking back at our medical records from the year 2019 she was on Toprol 50 mg daily. I do not see that in our list now but she may need a beta-kathia like that dosing. Observation status is being used at this time: and is we are awaiting input frompodiatry about if she will need additional treatment. Documented By: Ezekiel Mathew, [id number] Signed By: <Electronically signed by Ezekiel Mathew, DO> 08/20/22 0356 [facility] Work Phone: [facility] general Narrative - Reported* Type Description Date Medical History bipolar Medical History depression Medical History coronary artery disease Medical History seizures Medical History DM2 Medical History HLP Medical History pacemaker Medical History MRSA Medical History herniated disc Medical History Hypertention Medical History stomach ulcers Medical History diabetes type 2 Medical History diabetic neuropathy Surgical History ankle surgery Surgical History hysterectomy Surgical History cholecystectomy Surgical History wisdom teeth Surgical History pacemaker Surgical History portacath placement Hospitalization History see above Hospitalization History Chest Pain 07/2012 Hospitalization History [facility] 12/2013 Hospitalization History [facility] 2018 Hospitalization History Seizures [employer] [facility] [employer] [facility] Narrative - Reported* Type Description Date Medical History bipolar Medical History depression Medical History coronary artery disease Medical History seizures Medical History DM2 Medical History HLP Medical History pacemaker Medical History MRSA Medical History herniated disc Medical History Hypertention Medical History stomach ulcers Medical History diabetes type 2 Medical History diabetic neuropathy Medical History hypothryoid Surgical History ankle surgery Surgical History hysterectomy Surgical History cholecystectomy Surgical History wisdom teeth Surgical History pacemaker Surgical History portacath placement Hospitalization History see above Hospitalization History Chest Pain 07/2012 Hospitalization History [facility] 12/2013 Hospitalization History [facility] 2018 Hospitalization History Seizures Hospitalization History toe infection 08/2022 [employer] Other Hospital course Narrative No data available for this section [facility] Discharge instructions No data available for this section [facility] Discharge instructions* Attachments The following attachments cannot be sent through Care Everywhere. * Insomnia (Japanese) * Video: Sleeping Better (Japanese) * Video: Sleep and Your Health (Japanese) * Video: When You're Not Sleeping Well (Japanese) documented in [facility] Work Phone: Hospital Discharge instructions Additional Instructions Please follow up with your nurse practitioner re: blood sugars and Aicd evaluation. Call Dr. Romero's office to reschedule and to schedule a PST appointment before surgery.[facility] Work Phone: Hospital Discharge instructions* Attachments The following attachments cannot be sent through Care Everywhere. * Toe Amputation: Post-op (Japanese) documented in this encounterOhioHealthHospital Discharge instructions Additional Instructions Keep wound CLEAN AND DRY. Keep dressing on for 24 hours unless becomes soiled; apply clean dry dressing. Cleanse wound daily with mild soap and water. Apply thin layer of antibiotic ointment and cover with bandage. May leave open to air while sitting at home. Monitor for signs of infection; increased redness, pain, drainage, fever. Notify your doctor with any concerns. Thank you for choosing [facility] Work Phone: Patient's home Plan of care note* Visit Details Visit Type -SN HH [facility] [place] t of Care Discipline -Intermediate Problems Problem Start Date Status Goals Interventions Psychosocial Health Disciplines: Intermediate 04/01/2023 Active 1 goal linked to scheduled/documented intervention 1 goal intervention scheduled/documented in this visit Neurological Disciplines: Intermediate 04/01/2023 Active 1 goal linked to scheduled/documented intervention 1 goal intervention scheduled/documented in this visit Respiratory Disciplines: Intermediate 04/01/2023 Active 1 goal linked to scheduled/documented intervention 1 goal intervention scheduled/documented in this visit Cardiac Disciplines: Intermediate 04/01/2023 Active 1 goal linked to scheduled/documented intervention 1 goal intervention scheduled/documented in this visit Diabetes Disciplines: Intermediate 04/01/2023 Active 1 goal linked to scheduled/documented intervention 1 goal intervention scheduled/documented in this visit Assess and Instruct Home Visit Disciplines: Intermediate 04/01/2023 Active 1 goal linked to scheduled/documented intervention 3 goal interventions scheduled/documented in this visit Medication Management Disciplines: Intermediate 04/01/2023 Active 1 goal linked to scheduled/documented intervention 1 goal intervention scheduled/documented in this visit Pain Management Disciplines: Intermediate 04/01/2023 Active 1 goal linked to scheduled/documented intervention 1 goal intervention scheduled/documented in this visit Assess POC Synopsis Disciplines: Intermediate 04/01/2023 Active 2 goals linked to scheduled/documented interventions 2 goal interventions scheduled/documented in this visit Goals Goal Associated Problem Outcome Goal Met? Visit Notes Depression Psychosocial Health No Seizures Neurological No Generalized Shortness of Breath Respiratory No Cardiac Function Cardiac No Diabetes Diabetes No Home Care Plan Assess and Instruct Home Visit No Medications Medication Management No Pain Pain Management No Depression Assessment Assess POC Synopsis No Diabetic Foot Education Assess POC Synopsis No Interventions Intervention Associated Problem/Goal Status Variance Visit Notes Instruct Depression Problem:Psychosocial Health Goal:Depression Completed Patient reports: see matlab developer taught: patient Clinician instructed on: follow current protocol and report changes to pcp Patient/caregiver is able to teach back 25% of instruction. Instruct Seizures Problem:Neurological Goal:Seizures Completed Patient reports: history of seizures Clinician taught: patient Clinician instructed on: seek ED for breakthrough seizures and follow med regime Patient/caregiver is able to teach back 25% of instruction. Instruct Generalized Shortness of Breath Problem:Respiratory Goal:Generalized Shortness of Breath Completed Patient reports: shortness of breath with activity relieved with rest Clinician taught: patient Clinician instructed on: report unrelieved shortness of breath Patient/caregiver is able to teach back 50% of instruction. Instruct Impaired Cardiac Function Problem:Cardiac Goal:Cardiac Function Completed Patient reports: history of heart disease Clinician taught: patient Clinician instructed on: use of meds/rest and signs to report Patient/caregiver is able to teach back 75% of instruction. Instruct Diabetes Managment Problem:Diabetes Goal:Diabetes Completed Patient reports: non compliance with diabetes disease monitoring Clinician taught: patient Clinician instructed on: meds/monitoring of diabetes Patient/caregiver is able to teach back 50% of instruction. Falls Problem:Assess and Instruct Home Visit Goal:Home Care Plan Completed Clinician taught: patient 4-10 Patient IS at risk for falls (a score of 6 or greater is a predictor of future falls) and clinician instructed: proper footwear, improved lighting, remove clutter and throw rugs, keep frequently used items in reach and emergency response system and/or keep phone on you Patient/caregiver was able to demonstrate 75% via teachback Discharge Planning Problem:Assess and Instruct Home Visit Goal:Home Care Plan Completed Home Visit DC Planning: Spoke with patient about DC planning. Assessed for dyspnea at rest or with exertion DC will occur when: no longer has a skilled need Anticipate DC: On time Patient and/or caregiver response to discharge planning education: good Plan for Next Visit Problem:Assess and Instruct Home Visit Goal:Home Care Plan Completed Follow up education for next visit: reconcile meds/pain/fall/signs to report/home safety Skilled intervention at next visit: same as above Instruct Medication Management Problem:Medication Management Goal:Medications Completed Home Visit Med Education: Medication list reconciled. Medication profile and in-home medication list updated with appropriate changes. Discrepanices noted during home visit: yes, including no meds in home Instructed patient on dosing, purpose, and side effects. Medication education completed today on medlist from s medication(s). Patient/caregiver is able to teach back 25% of instruction. Patient to fruit or nut picker meds from pharmacy and follow medlist Assess Pain Characteristics and Current Pain Regimen and Instruct Methods of Pain Relief Problem:Pain Management Goal:Pain Completed see pain assessment Assess and Address Symptoms of Depression Problem:Assess POC Synopsis Goal:Depression Assessment Completed see PHQ Assess Feet and Provide Diabetic Foot Education Problem:Assess POC Synopsis Goal:Diabetic Foot Education Completed provided education, patient lacked interest in teaching [facility]* Visit Details Visit Type -SN HH OASIS [place] t of Care Discipline -Intermediate Problems Problem Start Date Status Goals Interventions Psychosocial Health Disciplines: Intermediate 04/01/2023 Active 1 goal linked to scheduled/documented intervention 1 goal intervention scheduled/documented in this visit Neurological Disciplines: Intermediate 04/01/2023 Active 1 goal linked to scheduled/documented intervention 1 goal intervention scheduled/documented in this visit Respiratory Disciplines: Intermediate 04/01/2023 Active 1 goal linked to scheduled/documented intervention 1 goal intervention scheduled/documented in this visit Cardiac Disciplines: Intermediate 04/01/2023 Active 1 goal linked to scheduled/documented intervention 1 goal intervention scheduled/documented in this visit Diabetes Disciplines: Intermediate 04/01/2023 Active 1 goal linked to scheduled/documented intervention 1 goal intervention scheduled/documented in this visit Assess and Instruct Home Visit Disciplines: Intermediate 04/01/2023 Active 1 goal linked to scheduled/documented intervention 3 goal interventions scheduled/documented in this visit Medication Management Disciplines: Intermediate 04/01/2023 Active 1 goal linked to scheduled/documented intervention 1 goal intervention scheduled/documented in this visit Pain Management Disciplines: Intermediate 04/01/2023 Active 1 goal linked to scheduled/documented intervention 1 goal intervention scheduled/documented in this visit Assess POC Synopsis Disciplines: Intermediate 04/01/2023 Active 2 goals linked to scheduled/documented interventions 2 goal interventions scheduled/documented in this visit Goals Goal Associated Problem Outcome Goal Met? Visit Notes Depression Psychosocial Health No Seizures Neurological No Generalized Shortness of Breath Respiratory No Cardiac Function Cardiac No Diabetes Diabetes No Home Care Plan Assess and Instruct Home Visit No Medications Medication Management No Pain Pain Management No Depression Assessment Assess POC Synopsis No Diabetic Foot Education Assess POC Synopsis No Interventions Intervention Associated Problem/Goal Status Variance Visit Notes Instruct Depression Problem:Psychosocial Health Goal:Depression Completed Patient reports: see matlab developer taught: patient Clinician instructed on: follow current protocol and report changes to pcp Patient/caregiver is able to teach back 25% of instruction. Instruct Seizures Problem:Neurological Goal:Seizures Completed Patient reports: history of seizures Clinician taught: patient Clinician instructed on: seek ED for breakthrough seizures and follow med regime Patient/caregiver is able to teach back 25% of instruction. Instruct Generalized Shortness of Breath Problem:Respiratory Goal:Generalized Shortness of Breath Completed Patient reports: shortness of breath with activity relieved with rest Clinician taught: patient Clinician instructed on: report unrelieved shortness of breath Patient/caregiver is able to teach back 50% of instruction. Instruct Impaired Cardiac Function Problem:Cardiac Goal:Cardiac Function Completed Patient reports: history of heart disease Clinician taught: patient Clinician instructed on: use of meds/rest and signs to report Patient/caregiver is able to teach back 75% of instruction. Instruct Diabetes Managment Problem:Diabetes Goal:Diabetes Completed Patient reports: non compliance with diabetes disease monitoring Clinician taught: patient Clinician instructed on: meds/monitoring of diabetes Patient/caregiver is able to teach back 50% of instruction. Falls Problem:Assess and Instruct Home Visit Goal:Home Care Plan Completed Clinician taught: patient 4-10 Patient IS at risk for falls (a score of 6 or greater is a predictor of future falls) and clinician instructed: proper footwear, improved lighting, remove clutter and throw rugs, keep frequently used items in reach and emergency response system and/or keep phone on you Patient/caregiver was able to demonstrate 75% via teachback Discharge Planning Problem:Assess and Instruct Home Visit Goal:Home Care Plan Completed Home Visit DC Planning: Spoke with patient about DC planning. Assessed for dyspnea at rest or with exertion DC will occur when: no longer has a skilled need Anticipate DC: On time Patient and/or caregiver response to discharge planning education: good Plan for Next Visit Problem:Assess and Instruct Home Visit Goal:Home Care Plan Completed Follow up education for next visit: reconcile meds/pain/fall/signs to report/home safety Skilled intervention at next visit: same as above Instruct Medication Management Problem:Medication Management Goal:Medications Completed Home Visit Med Education: Medication list reconciled. Medication profile and in-home medication list updated with appropriate changes. Discrepanices noted during home visit: yes, including no meds in home Instructed patient on dosing, purpose, and side effects. Medication education completed today on medlist from s medication(s). Patient/caregiver is able to teach back 25% of instruction. Patient to fruit or nut picker meds from pharmacy and follow medlist Assess Pain Characteristics and Current Pain Regimen and Instruct Methods of Pain Relief Problem:Pain Management Goal:Pain Completed see pain assessment Assess and Address Symptoms of Depression Problem:Assess POC Synopsis Goal:Depression Assessment Completed see PHQ Assess Feet and Provide Diabetic Foot Education Problem:Assess POC Synopsis Goal:Diabetic Foot Education Completed provided education, patient lacked interest in teaching [facility] Visit Details Visit Type -SN HH OASIS [place] t of Care Discipline -Intermediate Problems Problem Start Date Status Goals Interventions Psychosocial Health Disciplines: Intermediate 04/01/2023 Active 1 goal linked to scheduled/documented intervention 1 goal intervention scheduled/documented in this visit Neurological Disciplines: Intermediate 04/01/2023 Active 1 goal linked to scheduled/documented intervention 1 goal intervention scheduled/documented in this visit Respiratory Disciplines: Intermediate 04/01/2023 Active 1 goal linked to scheduled/documented intervention 1 goal intervention scheduled/documented in this visit Cardiac Disciplines: Intermediate 04/01/2023 Active 1 goal linked to scheduled/documented intervention 1 goal intervention scheduled/documented in this visit Diabetes Disciplines: Intermediate 04/01/2023 Active 1 goal linked to scheduled/documented intervention 1 goal intervention scheduled/documented in this visit Assess and Instruct Home Visit Disciplines: Intermediate 04/01/2023 Active 1 goal linked to scheduled/documented intervention 3 goal interventions scheduled/documented in this visit Medication Management Disciplines: Intermediate 04/01/2023 Active 1 goal linked to scheduled/documented intervention 1 goal intervention scheduled/documented in this visit Pain Management Disciplines: Intermediate 04/01/2023 Active 1 goal linked to scheduled/documented intervention 1 goal intervention scheduled/documented in this visit Assess POC Synopsis Disciplines: Intermediate 04/01/2023 Active 2 goals linked to scheduled/documented interventions 2 goal interventions scheduled/documented in this visit Goals Goal Associated Problem Outcome Goal Met? Visit Notes Depression Psychosocial Health No Seizures Neurological No Generalized Shortness of Breath Respiratory No Cardiac Function Cardiac No Diabetes Diabetes No Home Care Plan Assess and Instruct Home Visit No Medications Medication Management No Pain Pain Management No Depression Assessment Assess POC Synopsis No Diabetic Foot Education Assess POC Synopsis No Interventions Intervention Associated Problem/Goal Status Variance Visit Notes Instruct Depression Problem:Psychosocial Health Goal:Depression Completed Patient reports: see matlab developer taught: patient Clinician instructed on: follow current protocol and report changes to pcp Patient/caregiver is able to teach back 25% of instruction. Instruct Seizures Problem:Neurological Goal:Seizures Completed Patient reports: history of seizures Clinician taught: patient Clinician instructed on: seek ED for breakthrough seizures and follow med regime Patient/caregiver is able to teach back 25% of instruction. Instruct Generalized Shortness of Breath Problem:Respiratory Goal:Generalized Shortness of Breath Completed Patient reports: shortness of breath with activity relieved with rest Clinician taught: patient Clinician instructed on: report unrelieved shortness of breath Patient/caregiver is able to teach back 50% of instruction. Instruct Impaired Cardiac Function Problem:Cardiac Goal:Cardiac Function Completed Patient reports: history of heart disease Clinician taught: patient Clinician instructed on: use of meds/rest and signs to report Patient/caregiver is able to teach back 75% of instruction. Instruct Diabetes Managment Problem:Diabetes Goal:Diabetes Completed Patient reports: non compliance with diabetes disease monitoring Clinician taught: patient Clinician instructed on: meds/monitoring of diabetes Patient/caregiver is able to teach back 50% of instruction. Falls Problem:Assess and Instruct Home Visit Goal:Home Care Plan Completed Clinician taught: patient 4-10 Patient IS at risk for falls (a score of 6 or greater is a predictor of future falls) and clinician instructed: proper footwear, improved lighting, remove clutter and throw rugs, keep frequently used items in reach and emergency response system and/or keep phone on you Patient/caregiver was able to demonstrate 75% via teachback Discharge Planning Problem:Assess and Instruct Home Visit Goal:Home Care Plan Completed Home Visit DC Planning: Spoke with patient about DC planning. Assessed for dyspnea at rest or with exertion DC will occur when: no longer has a skilled need Anticipate DC: On time Patient and/or caregiver response to discharge planning education: good Plan for Next Visit Problem:Assess and Instruct Home Visit Goal:Home Care Plan Completed Follow up education for next visit: reconcile meds/pain/fall/signs to report/home safety Skilled intervention at next visit: same as above Instruct Medication Management Problem:Medication Management Goal:Medications Completed Home Visit Med Education: Medication list reconciled. Medication profile and in-home medication list updated with appropriate changes. Discrepanices noted during home visit: yes, including no meds in home Instructed patient on dosing, purpose, and side effects. Medication education completed today on medlist from s medication(s). Patient/caregiver is able to teach back 25% of instruction. Patient to fruit or nut picker meds from pharmacy and follow medlist Assess Pain Characteristics and Current Pain Regimen and Instruct Methods of Pain Relief Problem:Pain Management Goal:Pain Completed see pain assessment Assess and Address Symptoms of Depression Problem:Assess POC Synopsis Goal:Depression Assessment Completed see PHQ Assess Feet and Provide Diabetic Foot Education Problem:Assess POC Synopsis Goal:Diabetic Foot Education Completed provided education, patient lacked interest in teaching [facility] Visit Details Visit Type -SN HH OASIS [place] t of Care Discipline -Intermediate Problems Problem Start Date Status Goals Interventions Psychosocial Health Disciplines: Intermediate 04/01/2023 Active 1 goal linked to scheduled/documented intervention 1 goal intervention scheduled/documented in this visit Neurological Disciplines: Intermediate 04/01/2023 Active 1 goal linked to scheduled/documented intervention 1 goal intervention scheduled/documented in this visit Respiratory Disciplines: Intermediate 04/01/2023 Active 1 goal linked to scheduled/documented intervention 1 goal intervention scheduled/documented in this visit Cardiac Disciplines: Intermediate 04/01/2023 Active 1 goal linked to scheduled/documented intervention 1 goal intervention scheduled/documented in this visit Diabetes Disciplines: Intermediate 04/01/2023 Active 1 goal linked to scheduled/documented intervention 1 goal intervention scheduled/documented in this visit Assess and Instruct Home Visit Disciplines: Intermediate 04/01/2023 Active 1 goal linked to scheduled/documented intervention 3 goal interventions scheduled/documented in this visit Medication Management Disciplines: Intermediate 04/01/2023 Active 1 goal linked to scheduled/documented intervention 1 goal intervention scheduled/documented in this visit Pain Management Disciplines: Intermediate 04/01/2023 Active 1 goal linked to scheduled/documented intervention 1 goal intervention scheduled/documented in this visit Assess POC Synopsis Disciplines: Intermediate 04/01/2023 Active 2 goals linked to scheduled/documented interventions 2 goal interventions scheduled/documented in this visit Goals Goal Associated Problem Outcome Goal Met? Visit Notes Depression Psychosocial Health No Seizures Neurological No Generalized Shortness of Breath Respiratory No Cardiac Function Cardiac No Diabetes Diabetes No Home Care Plan Assess and Instruct Home Visit No Medications Medication Management No Pain Pain Management No Depression Assessment Assess POC Synopsis No Diabetic Foot Education Assess POC Synopsis No Interventions Intervention Associated Problem/Goal Status Variance Visit Notes Instruct Depression Problem:Psychosocial Health Goal:Depression Completed Patient reports: see matlab developer taught: patient Clinician instructed on: follow current protocol and report changes to pcp Patient/caregiver is able to teach back 25% of instruction. Instruct Seizures Problem:Neurological Goal:Seizures Completed Patient reports: history of seizures Clinician taught: patient Clinician instructed on: seek ED for breakthrough seizures and follow med regime Patient/caregiver is able to teach back 25% of instruction. Instruct Generalized Shortness of Breath Problem:Respiratory Goal:Generalized Shortness of Breath Completed Patient reports: shortness of breath with activity relieved with rest Clinician taught: patient Clinician instructed on: report unrelieved shortness of breath Patient/caregiver is able to teach back 50% of instruction. Instruct Impaired Cardiac Function Problem:Cardiac Goal:Cardiac Function Completed Patient reports: history of heart disease Clinician taught: patient Clinician instructed on: use of meds/rest and signs to report Patient/caregiver is able to teach back 75% of instruction. Instruct Diabetes Managment Problem:Diabetes Goal:Diabetes Completed Patient reports: non compliance with diabetes disease monitoring Clinician taught: patient Clinician instructed on: meds/monitoring of diabetes Patient/caregiver is able to teach back 50% of instruction. Falls Problem:Assess and Instruct Home Visit Goal:Home Care Plan Completed Clinician taught: patient 4-10 Patient IS at risk for falls (a score of 6 or greater is a predictor of future falls) and clinician instructed: proper footwear, improved lighting, remove clutter and throw rugs, keep frequently used items in reach and emergency response system and/or keep phone on you Patient/caregiver was able to demonstrate 75% via teachback Discharge Planning Problem:Assess and Instruct Home Visit Goal:Home Care Plan Completed Home Visit DC Planning: Spoke with patient about DC planning. Assessed for dyspnea at rest or with exertion DC will occur when: no longer has a skilled need Anticipate DC: On time Patient and/or caregiver response to discharge planning education: good Plan for Next Visit Problem:Assess and Instruct Home Visit Goal:Home Care Plan Completed Follow up education for next visit: reconcile meds/pain/fall/signs to report/home safety Skilled intervention at next visit: same as above Instruct Medication Management Problem:Medication Management Goal:Medications Completed Home Visit Med Education: Medication list reconciled. Medication profile and in-home medication list updated with appropriate changes. Discrepanices noted during home visit: yes, including no meds in home Instructed patient on dosing, purpose, and side effects. Medication education completed today on medlist from [facility] medication(s). Patient/caregiver is able to teach back 25% of instruction. 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 Visit Notes Hygiene/Safety HH Aide No Interventions Intervention Associated Problem/Goal Status Variance Visit Notes Patient Pain Reporting Problem:HH Aide Goal:Hygiene/Safety Scheduled Hair Care Problem:HH Aide Goal:Hygiene/Safety Scheduled Dressing Problem:HH Aide Goal:Hygiene/Safety Scheduled Foot Care Problem:HH Aide Goal:Hygiene/Safety Scheduled Shampoo Hair Problem:HH Aide Goal:Hygiene/Safety Scheduled Inspect Skin Problem:HH Aide Goal:Hygiene/Safety Scheduled Assist With Ambulation Problem:HH Aide Goal:Hygiene/Safety Scheduled Apply Lotion Problem:HH Aide Goal:Hygiene/Safety Scheduled Shower Problem:HH Aide Goal:Hygiene/Safety Scheduled [facility] Visit Details Visit Type -PT Initial Evalu ation Discipline -Physical Therapy Problems Problem Start Date Status Goals Interventions Assess and Instruct Home Visit Disciplines: Physical Therapy 04/08/2023 Active 1 goal linked to scheduled/documented intervention 2 goal interventions scheduled/documented in this visit Goals Goal Associated Problem Outcome Goal Met? 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 -OPTICAL DISPENSER Routine Discipline -Intermediate Problems Problem Start Date Status Goals Interventions Assess and Instruct Home Visit Disciplines: Intermediate 04/01/2023 Active 1 goal linked to scheduled/documented intervention 4 goal interventions scheduled/documented in this visit Medication Management Disciplines: Intermediate 04/01/2023 Active 1 goal linked to scheduled/documented intervention 1 goal intervention scheduled/documented in this visit Pain Management Disciplines: Intermediate 04/01/2023 Active 1 goal linked to scheduled/documented intervention 1 goal intervention scheduled/documented in this visit Goals Goal Associated Problem Outcome Goal Met? Visit Notes Home Care Plan Assess and Instruct Home Visit No Medications Medication Management No Pain Pain Management No Interventions Intervention Associated Problem/Goal Status Variance Visit Notes Falls Problem:Assess and Instruct Home Visit Goal:Home Care Plan Completed Clinician taught: patient 4-10 Patient IS at risk for falls (a score of 6 or greater is a predictor of future falls) and clinician instructed: proper footwear, improved lighting, remove clutter and throw rugs, safe cord/tubing management (O2, IV, Electrical, Chow), non-slip mats in tubs/showers, handrails/grab bar placement, assistive device usage, keep frequently used items in reach and emergency response system and/or keep phone on you Patient/caregiver was able to demonstrate 100% via teachback Discharge Planning Problem:Assess and Instruct Home Visit Goal:Home Care Plan Completed Home Visit DC Planning: Spoke with patient about DC planning. Assessed for unsteady gait/poor balance DC will occur when: patient/caregiver is able to demonstrate safety in home Anticipate DC: On time Patient and/or caregiver response to discharge planning education: good Plan for Next Visit Problem:Assess and Instruct Home Visit Goal:Home Care Plan Completed Follow up education for next visit: safety, medication education, dm education Skilled intervention at next visit: education Safety Problem:Assess and Instruct Home Visit Goal:Home Care Plan Completed Assessed patient vulnerability and home safety risks: yes Equipment reviewed assistive devices Patient at risk for harm or abuse fall risk Family members involved in safety plan for Level 2 or 3 3 Instruct Medication Management Problem:Medication Management Goal:Medications Completed Home Visit Med Education: Medication list reconciled. Medication profile and in-home medication list updated with appropriate changes. Discrepanices noted during home visit: yes, including missing meds Instructed patient on dosing, purpose, and side effects. Medication education completed today on all medication(s). Patient/caregiver is able to teach back 100% of instruction. Assess Pain Characteristics and Current Pain Regimen and Instruct Methods of Pain Relief Problem:Pain Management Goal:Pain Completed documented in this encounter [facility] Plan of care [facility]* Visit Details Visit Type -[facility] Visi t Discipline -Home Health Aide Problems Problem Start Date Status Goals Interventions HH Aide Disciplines: Home Health Aide 04/01/2023 Active 1 goal linked to scheduled/documented intervention 9 goal interventions scheduled/documented in this visit Goals Goal Associated Problem Outcome Goal Met? Visit Notes Hygiene/Safety HH Aide No Interventions Intervention Associated Problem/Goal Status Variance Visit Notes Patient Pain Reporting Problem:HH Aide Goal:Hygiene/Safety Completed none reported Hair Care Problem: Aide Goal:Hygiene/Safety Completed Dressing Problem: Aide Goal:Hygiene/Safety Completed Foot Care Problem: Aide Goal:Hygiene/Safety Completed Shampoo Hair Problem:HH Aide Goal:Hygiene/Safety Completed Inspect Skin Problem:HH Aide Goal:Hygiene/Safety Completed Assist With Ambulation Problem:HH Aide Goal:Hygiene/Safety Completed Apply Lotion Problem: Aide Goal:Hygiene/Safety Completed Shower Problem: Aide Goal:Hygiene/Safety Completed documented in this encounter [facility] Plan of care note* Visit Details Visit Type -[facility] Visi t Discipline -Home Health Aide Problems Problem Start Date Status Goals Interventions HH Aide Disciplines: Home Health Aide 04/01/2023 Active 1 goal linked to scheduled/documented intervention 9 goal interventions scheduled/documented in this visit Goals Goal Associated Problem Outcome Goal Met? Visit Notes Hygiene/Safety HH Aide No Interventions Intervention Associated Problem/Goal Status Variance Visit Notes Patient Pain Reporting Problem:HH Aide Goal:Hygiene/Safety Completed none reported Hair Care Problem:HH Aide Goal:Hygiene/Safety Completed Dressing Problem:HH Aide Goal:Hygiene/Safety Completed Foot Care Problem:HH Aide Goal:Hygiene/Safety Completed Shampoo Hair Problem:HH Aide Goal:Hygiene/Safety Completed Inspect Skin Problem:HH Aide Goal:Hygiene/Safety Completed Assist With Ambulation Problem:HH Aide Goal:Hygiene/Safety Completed Apply Lotion Problem:HH Aide Goal:Hygiene/Safety Completed Shower Problem:HH Aide Goal:Hygiene/Safety Completed [facility] Visit Details 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 Visi t Discipline -Physical Therapy Problems Problem Start Date Status Goals Interventions Assess and Instruct Home Visit Disciplines: Physical Therapy 04/08/2023 Active 1 goal linked to scheduled/documented intervention 2 goal interventions scheduled/documented in this visit Home Exercise Program Disciplines: Physical Therapy 04/08/2023 Active 1 goal linked to scheduled/documented intervention 1 goal intervention scheduled/documented in this visit Mobility Disciplines: Physical Therapy 04/08/2023 Active 1 goal linked to scheduled/documented intervention 1 goal intervention scheduled/documented in this visit Goals Goal Associated Problem Outcome Goal Met? Visit Notes Home Care Plan Assess and Instruct Home Visit No Home Exercise Program Home Exercise Program No Mobility Mobility No Interventions Intervention Associated Problem/Goal Status Variance Visit Notes Falls Problem:Assess and Instruct Home Visit Goal:Home Care Plan Completed pt given ed on fall prevention and safety in home to decrease fall risks. Safety Problem:Assess and Instruct Home Visit Goal:Home Care Plan Completed pt demos understanding of safety and knowledge of equipment. Home Exercise Program Problem:Home Exercise Program Goal:Home Exercise Program Completed pt given ed on importance of HEP completion and progression of amb and ex as tolerated. Instruct Mobility Problem:Mobility Goal:Mobility Completed pt amb in home without AD aorund 100 ft. vc's for upright posture and foot clearance for fall prevention and safety with keeping pathways clear for fall prevention as well. [facility] Visit Details Visit Type -SN HH Routine Vi sit Discipline -Intermediate Problems Problem Start Date Status Goals Interventions Psychosocial Health Disciplines: Intermediate 04/01/2023 Active 1 goal linked to scheduled/documented intervention 1 goal intervention scheduled/documented in this visit Neurological Disciplines: Intermediate 04/01/2023 Active 1 goal linked to scheduled/documented intervention 1 goal intervention scheduled/documented in this visit Respiratory Disciplines: Intermediate 04/01/2023 Active 1 goal linked to scheduled/documented intervention 1 goal intervention scheduled/documented in this visit Cardiac Disciplines: Intermediate 04/01/2023 Active 1 goal linked to scheduled/documented intervention 1 goal intervention scheduled/documented in this visit Diabetes Disciplines: Intermediate 04/01/2023 Active 1 goal linked to scheduled/documented intervention 1 goal intervention scheduled/documented in this visit Assess and Instruct Home Visit Disciplines: Intermediate 04/01/2023 Active 1 goal linked to scheduled/documented intervention 4 goal interventions scheduled/documented in this visit Medication Management Disciplines: Intermediate 04/01/2023 Active 1 goal linked to scheduled/documented intervention 1 goal intervention scheduled/documented in this visit Pain Management Disciplines: Intermediate 04/01/2023 Active 1 goal linked to scheduled/documented intervention 1 goal intervention scheduled/documented in this visit Assess POC Synopsis Disciplines: Intermediate 04/01/2023 Active 2 goals linked to scheduled/documented interventions 2 goal interventions scheduled/documented in this visit Wound Care and/or Skin Problems Disciplines: Intermediate 04/15/2023 Active 1 goal linked to scheduled/documented intervention 1 goal intervention scheduled/documented in this visit Goals Goal Associated Problem Outcome Goal Met? Visit Notes Depression Psychosocial Health No Seizures Neurological No Generalized Shortness of Breath Respiratory No Cardiac Function Cardiac No Diabetes Diabetes No Home Care Plan Assess and Instruct Home Visit No Medications Medication Management No Pain Pain Management No Depression Assessment Assess POC Synopsis No Diabetic Foot Education Assess POC Synopsis No Wound/Incision Wound Care and/or Skin Problems No Interventions Intervention Associated Problem/Goal Status Variance Visit Notes Instruct Depression Problem:Psychosocial Health Goal:Depression Completed done this vs Instruct Seizures Problem:Neurological Goal:Seizures Completed had two petit mal seizures during SN vs, pt stated has not taken medications for past week. Medication minder set up, discussed getting pt set up with dose packs from pharmacy. Instruct Generalized Shortness of Breath Problem:Respiratory Goal:Generalized Shortness of Breath Completed done this vs Instruct Impaired Cardiac Function Problem:Cardiac Goal:Cardiac Function Completed done this vs Instruct Diabetes Managment Problem:Diabetes Goal:Diabetes Completed pt reports bllod sugar 147, has continous glucose monitor Falls Problem:Assess and Instruct Home Visit Goal:Home Care Plan Completed instructed in fall preventions Plan for Next Visit Problem:Assess and Instruct Home Visit Goal:Home Care Plan Completed Follow up education for next visit: medication review Skilled intervention at next visit: wound care, new orders Safety Problem:Assess and Instruct Home Visit Goal:Home Care Plan Completed no s/s of abuse noted, two young children in home. SN expressed concern over pt not keeping medications away from children. Pt moved medications to behind boxes to be harder to access. Discharge Planning Problem:Assess and Instruct Home Visit Goal:Home Care Plan Scheduled Instruct Medication Management Problem:Medication Management Goal:Medications Completed pt has not taken medications in past week, med minder set up. Pt states is unable to read labels, discussed getting set up in dose packs from [facility]. Assess Pain Characteristics and Current Pain Regimen and Instruct Methods of Pain Relief Problem:Pain Management Goal:Pain Completed Assess and Address Symptoms of Depression Problem:Assess POC Synopsis Goal:Depression Assessment Completed Assess Feet and Provide Diabetic Foot Education Problem:Assess POC Synopsis Goal:Diabetic Foot Education Completed Wound/Incision Problem:Wound Care and/or Skin Problems Goal:Wound/Incision Scheduled documented in this encounter [facility] home Plan of care note* Visit Details Visit Type -WATER USE INSPECTOR Missed Visit Discipline -Home Health Aide Problems Problem Start Date Status Goals Interventions HH Aide Disciplines: Home Health Aide 04/01/2023 Active 1 goal linked to scheduled/documented intervention 9 goal interventions scheduled/documented in this visit Goals Goal Associated Problem Outcome Goal Met? Visit Notes Hygiene/Safety HH Aide No Interventions Intervention Associated Problem/Goal Status Variance Visit Notes Patient Pain Reporting Problem:HH Aide Goal:Hygiene/Safety Scheduled Hair Care Problem:HH Aide Goal:Hygiene/Safety Scheduled Dressing Problem:HH Aide Goal:Hygiene/Safety Scheduled Foot Care Problem:HH Aide Goal:Hygiene/Safety Scheduled Shampoo Hair Problem:HH Aide Goal:Hygiene/Safety Scheduled Inspect Skin Problem:HH Aide Goal:Hygiene/Safety Scheduled Assist With Ambulation Problem:HH Aide Goal:Hygiene/Safety Scheduled Apply Lotion Problem:HH Aide Goal:Hygiene/Safety Scheduled Shower Problem:HH Aide Goal:Hygiene/Safety Scheduled documented in this encounter [facility] home Plan of care note* Visit Details Visit Type -SN Missed Visit Discipline -Intermediate Problems Problem Start Date Status Goals Interventions Assess and Instruct Home Visit Disciplines: Intermediate 04/01/2023 Active 1 goal linked to scheduled/documented intervention 3 goal interventions scheduled/documented in this visit Medication Management Disciplines: Intermediate 04/01/2023 Active 1 goal linked to scheduled/documented intervention 1 goal intervention scheduled/documented in this visit Pain Management Disciplines: Intermediate 04/01/2023 Active 1 goal linked to scheduled/documented intervention 1 goal intervention scheduled/documented in this visit Wound Care and/or Skin Problems Disciplines: Intermediate 04/15/2023 Active 1 goal linked to scheduled/documented intervention 1 goal intervention scheduled/documented in this visit Goals Goal Associated Problem Outcome Goal Met? Visit Notes Home Care Plan Assess and Instruct Home Visit No Medications Medication Management No Pain Pain Management No Wound/Incision Wound Care and/or Skin Problems No Interventions Intervention Associated Problem/Goal Status Variance Visit Notes Falls Problem:Assess and Instruct Home Visit Goal:Home Care Plan Scheduled Discharge Planning Problem:Assess and Instruct Home Visit Goal:Home Care Plan Scheduled Plan for Next Visit Problem:Assess and Instruct Home Visit Goal:Home Care Plan Scheduled Instruct Medication Management Problem:Medication Management Goal:Medications Scheduled Assess Pain Characteristics and Current Pain Regimen and Instruct Methods of Pain Relief Problem:Pain Management Goal:Pain Scheduled Wound/Incision Problem:Wound Care and/or Skin Problems Goal:Wound/Incision Scheduled [facility] Visit Details Visit Type -SUPERVISOR KOSHER DIETARY SERVICE Missed Visit Discipline -Physical Therapy Problems Problem Start Date Status Goals Interventions Assess and Instruct Home Visit Disciplines: Physical Therapy 04/08/2023 Active 1 goal linked to scheduled/documented intervention 2 goal interventions scheduled/documented in this visit Goals Goal Associated Problem Outcome Goal Met? Visit Notes Home Care Plan Assess and Instruct Home Visit No Interventions Intervention Associated Problem/Goal Status Variance Visit Notes Falls Problem:Assess and Instruct Home Visit Goal:Home Care Plan Scheduled Safety Problem:Assess and Instruct Home Visit Goal:Home Care Plan Scheduled [facility]* Visit Details Visit Type -PT Non-OASIS/Dis cipl Discharge Discipline -Physical Therapy Problems Problem Start Date Status Goals Interventions Assess and Instruct Home Visit Disciplines: Physical Therapy 04/08/2023 Resolved on 04/29/2023 1 goal linked to scheduled/documented intervention 2 goal interventions scheduled/documented in this visit Goals Goal Associated Problem Outcome Goal Met? Visit Notes Home Care Plan Assess and Instruct Home Visit No Interventions Intervention Associated Problem/Goal Status Variance Visit Notes Falls Problem:Assess and Instruct Home Visit Goal:Home Care Plan Scheduled Safety Problem:Assess and Instruct Home Visit Goal:Home Care Plan Scheduled [facility]* Visit Details Visit Type -SN HH OASIS Disc harge Discipline -Intermediate Problems Problem Start Date Status Goals Interventions Assess and Instruct Home Visit Disciplines: Intermediate 04/01/2023 Active 1 goal linked to scheduled/documented intervention 3 goal interventions scheduled/documented in this visit Medication Management Disciplines: Intermediate 04/01/2023 Active 1 goal linked to scheduled/documented intervention 1 goal intervention scheduled/documented in this visit Pain Management Disciplines: Intermediate 04/01/2023 Active 1 goal linked to scheduled/documented intervention 1 goal intervention scheduled/documented in this visit Wound Care and/or Skin Problems Disciplines: Intermediate 04/15/2023 Active 1 goal linked to scheduled/documented intervention 1 goal intervention scheduled/documented in this visit Goals Goal Associated Problem Outcome Goal Met? Visit Notes Home Care Plan Assess and Instruct Home Visit No Medications Medication Management No Pain Pain Management No Wound/Incision Wound Care and/or Skin Problems No Interventions Intervention Associated Problem/Goal Status Variance Visit Notes Falls Problem:Assess and Instruct Home Visit Goal:Home Care Plan Scheduled Discharge Planning Problem:Assess and Instruct Home Visit Goal:Home Care Plan Scheduled Plan for Next Visit Problem:Assess and Instruct Home Visit Goal:Home Care Plan Scheduled Instruct Medication Management Problem:Medication Management Goal:Medications Scheduled Assess Pain Characteristics and Current Pain Regimen and Instruct Methods of Pain Relief Problem:Pain Management Goal:Pain Scheduled Wound/Incision Problem:Wound Care and/or Skin Problems Goal:Wound/Incision Scheduled [facility]* Visit Details Visit Type -SUPERVISOR KOSHER DIETARY SERVICE Missed Visit Discipline -Physical Therapy Problems Problem Start Date Status Goals Interventions Assess and Instruct Home Visit Disciplines: Physical Therapy 04/08/2023 Active 1 goal linked to scheduled/documented intervention 2 goal interventions scheduled/documented in this visit Goals Goal Associated Problem Outcome Goal Met? Visit Notes Home Care Plan Assess and Instruct Home Visit No Interventions Intervention Associated Problem/Goal Status Variance Visit Notes Falls Problem:Assess and Instruct Home Visit Goal:Home Care Plan Scheduled Safety Problem:Assess and Instruct Home Visit Goal:Home Care Plan Scheduled [facility] Actions Clinical update including pa in/vitals/ no meds in home to PCPDr.Shuh on office phone. [facility]* Actions Clinical update including pa in/vitals/ no meds in home to Dr.Shuh DUONG on office phone. [facility]* Actions Clinical update including pa in/vitals/ no meds in home to PCPDr.Shuh on office phone. [facility]* Actions Clinical update including pa in/vitals/ no meds in home to PCPDr.Shuh on office phone. [facility]* Actions Per SN SOC: HISTORY OF PRESENT ILLNESS LEADING UP TO HOME CARE ADMISSION (including facility stays and dates): [facility] [place] 03/29-03/30/23 for: Atypical chest pain, resolved Elevated troponin, chronic - to follow up outpatient with cardiology T2DM, uncontrolled Diabetic peripheral neuropathy obesity seizure disorder Side/site of body affected (dominant hand if neuro diagnosis): cardiac Comorbidities with potential to affect the Plan of Care: DM and CAD Additional Disciplines requested: none Disciplines referred and declined by patient/caregiver: agreeable to all ordered services: SN,PT,OT,WATER USE INSPECTOR Prior functional level: indpendent with adls/ questionable management of meds as none in home at time of admission/dependent for iadls Current functional level: needs assist with learning meds/disease process Fall Risk: MAHC-10 score 7, 4-10 Patient IS at risk for falls (a score of 6 or greater is a predictor of future falls) Medication Issues: no meds in home, patient agreed to fruit or nut picker all meds from pharmacy on day of admission to Wound summary: skin intact/port intact right upper chest HOMEBOUND STATUS medicaid without homebound requirement Narratives Home PT evaluation today. Pt says has some weakness. Says uses power wc outside of home or other wc. Says normally sits in recliner daily. Says she currently sleeps in recliner. Says would like to have hospital bed. Will plan to place order with pt doctor for this. Pt goal is to be able to get around better. plan on home PT 1w1, 2w3 for gait/balance/endurance/transfer training, therex, HEP. [facility]* Actions Homebound Status Criteria 1: Assistive Device(s): None Needs assistance of at least 1 to leave home Criteria 2: Patient confined to home due to unsteady gait/poor balance Type of Home: split level / walkout [facility]* Actions [facility] HomeHealth Clinical Sum alejandro Patient s goals for HomeCare: Be stronger What skill(s) will be provided by your discipline: ADL retraining, ther exercises, ther activity Rehab Potential: good HISTORY OF PRESENT ILLNESS LEADING UP TO HOME CARE ADMISSION (including facility stays and dates): [facility] [place] 03/29-03/30/23 for: Atypical chest pain, resolved elevated troponin, chronic - to follow up outpatient with cardiology T2DM, uncontrolled DM, peripheral neuropathy, obesity and.seizure disorder Side/site of body affected (dominant hand if neuro diagnosis): cardiac Comorbidities with potential to affect the Plan of Care: DM and CAD Prior functional level: Patient was I wit her ADL's and PLOF Current functional level: Medication Issues: See charting Wound summary: See charting HOMEBOUND STATUS Criteria 1: Assistive Device(s): None Needs assistance of at least 1 to leave home Criteria 2: Patient confined to home due to unsteady gait/poor balance [facility]* Narratives Pt declined further care to RN. RN completed OASIS D/C. Home PT non-billable discharge completed. [facility] No data available for this section [facility] Author Jeana Martini [facility] August 20, 2022 9:48am Note Date/Time August 20, 2022 9:4 8am [facility] [address] [place] [address] Hospitalist Progress Note Signed Patient: Addie Jean Baptiste MR#: [id number] : 1975 Acct:[id number] Age/Sex: 47 / F Adm Date: 3 Loc: 3T Room: [address] [place] [address] Type: ADM INOo Attending Dr: Jeana Martini MD Copies to: ~ Date of Service: 08/20/2022 Subjective Subjective Narrative: Patient continues to have pain and discomfort in the great toe. No chest pain or palpitation. No fever or chills. No cough or congestion. No headaches, loss of conscious or seizure Exam Physical Exam Vital Signs: Temp Pulse Resp BP Pulse Ox O2 Del Method 97.9 F 70 16 176/105 H 100 Room Air 08/20/22 03:36 08/20/22 03:36 08/20/22 03:36 08/20/22 03:36 08/20/22 03:36 08/20/22 04:26 Narrative: [pt is awake and alert. oriented to place, time and person, morbidly obese HEENT: [place] conjunctiva and NL buccal mucosa Neck: Supple, no tenderness Endocrine: No Thyromegaly. Vascular: No JVD or carotid bruit. Lymphatic: No cervical lymphadenopathy. Chest: CTA no DTP. Heart RRR, no extra sound or murmur. Abd: Soft, no tenderness, no rebound and no rigidity. Increase abd girth therefore clinically I could not exclude the possibility of intra abd mass or organomegaly. LE: No cyanosis or clubbing, no varices or edema. Erythema, induration and tenderness involving the left great toe. Stage II ulceration involving the tip of the great toe circumferentially. Faint dorsalis pedis pulse Neuro: A A O. Nl speech, comprehension and attention. Nl and symetrical motor and tone examination through out. []] Objective Lab Results 08/20/22 06:47 08/20/22 06:47 Meds Allergies and Active Meds Allergies adhesive tape Allergy (Verified 08/19/22 21:48) Hives codeine Allergy (Verified 08/19/22 21:48) Vomiting fentanyl Allergy (Verified 08/19/22 21:48) Hives ibuprofen Allergy (Verified 08/19/22 21:48) Unknown Reaction Iodinated Contrast Media Allergy (Verified 08/19/22 21:48) Unknown Reaction ketorolac [From Toradol] Allergy (Verified 08/19/22 21:48) Vomiting latex Allergy (Verified 08/19/22 21:48) Hives propoxyphene [From Darvocet-N] Allergy (Verified 08/19/22 21:48) Vomiting tramadol Allergy (Verified 08/19/22 21:48) Vomiting vancomycin Allergy (Verified 08/19/22 21:48) Unknown Reaction linezolid [From Zyvox] Adverse Reaction (Verified 08/19/22 21:48) Vomiting Active Meds: Active Medications Generic Name Dose Route Start Last Admin Trade Name Freq PRN Reason Stop Dose Admin Acetaminophen 650 mg 08/20/22 03:41 Acetaminophen 325 Mg Tablet PO 08/20/23 03:40 Q4H PRN Pain Scale 1 - 3 or fever Amlodipine Besylate 5 mg 08/20/22 09:40 Amlodipine 5 Mg Tablet PO 03/28/24 09:39 DAILY SAMEER Clonidine HCl 0.1 mg 08/20/22 03:41 Clonidine 0.1 Mg Tablet PO 08/20/23 03:40 Q4H PRN Hypertension Dextrose 0 gm 08/20/22 03:41 Dextrose 50% In Water 25 Gm/50 Ml Syringe IV-PUSH 08/20/23 03:40 PRN PRN Hypoglycemia Enoxaparin Sodium 40 mg 08/20/22 10:00 08/20/22 09:29 Enoxaparin 40 Mg/0.4 Ml Syringe SUBCUT 08/20/23 09:59 40 mg DAILY@1000 SAMEER Administration Ergocalciferol 1,250 mcg 08/20/22 09:45 Ergocalciferol 1,250 Mcg (50,000 Units) Capsule PO 08/20/23 09:44 Q7D SAMEER Furosemide 20 mg 08/20/22 08:00 08/20/22 09:26 Furosemide 20 Mg Tablet PO 08/20/23 07:59 20 mg DAILY.8A SAMEER Administration Glucose 0 gm 08/20/22 03:41 Dextrose 40% Gel 15 Gm Tube PO 08/20/23 03:40 PRN PRN Hypoglycemia Ampicillin Sodium/Sulbactam Sodium 3 gm in 100 mls @ 200 mls/hr 08/20/22 08:30 08/20/22 09:27 Unasyn IV 200 mls/hr Q6H SAMEER Administration Levetiracetam 750 mg 08/20/22 09:00 08/20/22 08:24 Levetiracetam 250 Mg Tablet PO 08/20/23 08:59 750 mg BID SAMEER Administration Levothyroxine Sodium 75 mcg 08/20/22 06:30 08/20/22 06:15 Levothyroxine 75 Mcg Tablet PO 08/20/23 06:29 75 mcg DAILY@0630 SAMEER Administration Lisinopril 40 mg 08/20/22 09:00 08/20/22 08:25 Lisinopril 40 Mg Tablet PO 08/20/23 08:59 40 mg DAILY SAMEER Administration Metformin HCl 1,000 mg 08/20/22 08:00 08/20/22 08:25 Metformin 500 Mg Tablet PO 08/20/23 07:59 1,000 mg BID.WITH.MEALS SAMEER Administration Pantoprazole Sodium 40 mg 08/21/22 09:00 Pantoprazole 40 [address] Table[address].Dr YANG 08/21/23 08:59 DAILY SAMEER Pregabalin 150 mg 08/20/22 03:45 08/20/22 04:09 Pregabalin 150 Mg Capsule PO 02/16/23 03:44 150 mg HS SAMEER Administration Quetiapine Fumarate 800 mg 08/20/22 04:00 08/20/22 04:09 Quetiapine Fumarate 200 Mg Tablet PO 08/20/23 03:59 800 mg HS SAMEER Administration Saccharomyces Boulardii 250 mg 08/20/22 08:00 08/20/22 08:26 Saccharomyces Boulardii 250 Mg Capsule PO 08/20/23 07:59 250 mg BID.WITH.MEALS SAMEER Administration Sodium Chloride 0 ml 08/19/22 21:47 Sodium Chloride 0.9 % 10 Ml Syringe IV-PUSH 08/19/23 21:46 PRN PRN Flush Tizanidine HCl 4 mg 08/20/22 03:44 08/20/22 08:50 Tizanidine 4 Mg Tablet PO 08/20/23 03:43 4 mg TID PRN Administration Muscle Spasm Tramadol HCl 50 mg 08/20/22 09:05 Tramadol 50 Mg Tablet PO 02/16/23 09:04 Q6H PRN Pain Scale 6 - 10 A&P - Hospitalist Assessment/Plan (1) Toe infection: (2) Diabetes: (3) Nicotine dependence: (4) Hypertension: (5) Hypomagnesemia: (6) Diabetic foot infection: Plan Recurrent great toe infection associated with distal ulceration. Could not exclude the possibility of osteomyelitis I requested the blood culture Continue antibiotic. Pending infectious disease and podiatry consultation and recommendation I requested arterial study rule out significant arterial disease Diabetes. Sliding scale coverage. Counseling about diabetes and diet Hypertension, poor control. Resume home lisinopril 40 mg daily. I added amlodipine daily DVT prophylaxis Lovenox subcu injection. Documented By: Jeana Martini MD 08/20/22945 Signed By: <Electronically signed by Jeana Martini MD> 08/20/22947 [facility] Work Phone: Progress note Author Jeana Martini [facility] August 21, 2022 10:10am Note Date/Time August 21, 2022 10: 10am [facility] [address] [place] [address] Hospitalist Progress Note Signed Patient: Addie Jean Baptiste MR#: [id number] : 1975 Acct:[id number] Age/Sex: 47 / F Adm Date: 3 Loc: 3T Room: [address] [place] [address] Type: ADM IN Attending Dr: Jeana Martini MD Copies to: ~ Date of Service: 08/21/2022 Subjective Subjective Narrative: Following up on the patient. The patient continues to have pain in the toe. Nochest pain or palpitation. No abdominal pain, nausea or vomiting Exam Physical Exam Vital Signs: Temp Pulse Resp BP Pulse Ox O2 Del Method 97.6 F 113 H 16 139/73 98 Room Air 08/21/22 08:29 08/21/22 08:29 08/21/22 08:29 08/21/22 08:29 08/21/22 08:29 08/21/22 08:29 Narrative: [pt is awake and alert. oriented to place, time and person, morbidly obese HEENT: [place] conjunctiva and NL buccal mucosa Neck: Supple, no tenderness Endocrine: No Thyromegaly. Vascular: No JVD or carotid bruit. Lymphatic: No cervical lymphadenopathy. Chest: CTA no DTP. Heart RRR, no extra sound or murmur. Abd: Soft, no tenderness, no rebound and no rigidity. Increase abd girth therefore clinically I could not exclude the possibility of intra abd mass or organomegaly. LE: No cyanosis or clubbing, no varices or edema. Toe and foot are wrapped after incision and drainage was completed by podiatry on 08/20. To be inspected by podiatry and infectious disease. Neuro: A A O. Nl speech, comprehension and attention. Nl and symetrical motor and tone examination through out. []] Objective Lab Results 08/21/22 05:20 08/21/22 05:20 Meds Allergies and Active Meds Allergies adhesive tape Allergy (Verified 08/19/22 21:48) Hives codeine Allergy (Verified 08/19/22 21:48) Vomiting fentanyl Allergy (Verified 08/19/22 21:48) Hives ibuprofen Allergy (Verified 08/19/22 21:48) Unknown Reaction Iodinated Contrast Media Allergy (Verified 08/19/22 21:48) Unknown Reaction ketorolac [From Toradol] Allergy (Verified 08/19/22 21:48) Vomiting latex Allergy (Verified 08/19/22 21:48) Hives propoxyphene [From Darvocet-N] Allergy (Verified 08/19/22 21:48) Vomiting tramadol Allergy (Verified 08/19/22 21:48) Vomiting vancomycin Allergy (Verified 08/19/22 21:48) Unknown Reaction linezolid [From Zyvox] Adverse Reaction (Verified 08/19/22 21:48) Vomiting Active Meds: Active Medications Generic Name Dose Route Start Last Admin Trade Name Freq PRN Reason Stop Dose Admin Acetaminophen 650 mg 08/20/22 03:41 Acetaminophen 325 Mg Tablet PO 08/20/23 03:40 Q4H PRN Pain Scale 1 - 3 or fever Amlodipine Besylate 5 mg 08/20/22 09:40 08/21/22 09:00 Amlodipine 5 Mg Tablet PO 08/20/23 09:39 5 mg DAILY SAMEER Administration Clonidine HCl 0.1 mg 08/20/22 03:41 Clonidine 0.1 Mg Tablet PO 08/20/23 03:40 Q4H PRN Hypertension Dextrose 0 gm 08/20/22 03:41 Dextrose 50% In Water 25 Gm/50 Ml Syringe IV-PUSH 08/20/23 03:40 PRN PRN Hypoglycemia Dextrose 0 gm 08/20/22 10:21 Dextrose 50% In Water 25 Gm/50 Ml Syringe IV-PUSH 08/20/23 10:20 PRN PRN Hypoglycemia Enoxaparin Sodium 40 mg 08/20/22 10:00 08/21/22 09:01 Enoxaparin 40 Mg/0.4 Ml Syringe SUBCUT 08/20/23 09:59 40 mg DAILY@1000 SAMEER Administration Ergocalciferol 1,250 mcg 08/20/22 09:45 08/20/22 14:44 Ergocalciferol 1,250 Mcg (50,000 Units) Capsule PO 08/20/23 09:44 Not Given Q7D SAMEER Furosemide 20 mg 08/20/22 08:00 08/21/22 09:00 Furosemide 20 Mg Tablet PO 08/20/23 07:59 20 mg DAILY.8A SAMEER Administration Glucose 0 gm 08/20/22 03:41 Dextrose 40% Gel 15 Gm Tube PO 08/20/23 03:40 PRN PRN Hypoglycemia Glucose 0 gm 08/20/22 10:21 Dextrose 40% Gel 15 Gm Tube PO 08/20/23 10:20 PRN PRN Hypoglycemia Ampicillin Sodium/Sulbactam Sodium 3 gm in 100 mls @ 200 mls/hr 08/20/22 08:30 08/21/22 09:02 Unasyn IV 200 mls/hr Q6H SAMEER Administration Sodium Phosphate 30 mmol/ 260 mls @ 43.333 mls/hr 08/21/22 08:00 Sodium Chloride IV 08/21/22 13:59 ONCE ONE Insulin Aspart 0 units 08/20/22 12:00 08/21/22 09:03 Insulin Aspart 300 Units/3 Ml Insuln.Pen SUBCUT 08/20/23 11:59 Not Given TID.WM.HS SAMEER Protocol Levetiracetam 750 mg 08/20/22 09:00 08/21/22 08:59 Levetiracetam 250 Mg Tablet PO 08/20/23 08:59 750 mg BID SAMEER Administration Levothyroxine Sodium 75 mcg 08/20/22 06:30 08/21/22 06:09 Levothyroxine 75 Mcg Tablet PO 08/20/23 06:29 75 mcg DAILY@0630 SAMEER Administration Lisinopril 40 mg 08/20/22 09:00 08/21/22 09:01 Lisinopril 40 Mg Tablet PO 08/20/23 08:59 40 mg DAILY SAMEER Administration Metformin HCl 1,000 mg 08/20/22 08:00 08/21/22 09:00 Metformin 500 Mg Tablet PO 08/20/23 07:59 1,000 mg BID.WITH.MEALS SAMEER Administration Pantoprazole Sodium 40 mg 08/21/22 09:00 08/21/22 09:01 Pantoprazole 40 Mg Tablet.Dr PO 08/21/23 08:59 40 mg DAILY SAMEER Administration Pregabalin 150 mg 08/20/22 03:45 08/20/22 21:12 Pregabalin 150 Mg Capsule PO 02/16/23 03:44 150 mg HS SAMEER Administration Quetiapine Fumarate 800 mg 08/20/22 04:00 08/20/22 21:12 Quetiapine Fumarate 200 Mg Tablet PO 08/20/23 03:59 800 mg HS SAMEER Administration Saccharomyces Boulardii 250 mg 08/20/22 08:00 08/21/22 08:59 Saccharomyces Boulardii 250 Mg Capsule PO 08/20/23 07:59 250 mg BID.WITH.MEALS SAMEER Administration Sodium Chloride 0 ml 08/19/22 21:47 08/21/22 03:28 Sodium Chloride 0.9 % 10 Ml Syringe IV-PUSH 08/19/23 21:46 10 ml PRN PRN Administration Flush Tizanidine HCl 4 mg 08/20/22 03:44 08/20/22 21:12 Tizanidine 4 Mg Tablet PO 08/20/23 03:43 4 mg TID PRN Administration Muscle Spasm Tramadol HCl 50 mg 08/20/22 09:05 08/20/22 21:12 Tramadol 50 Mg Tablet PO 02/16/23 09:04 50 mg Q6H PRN Administration Pain Scale 6 - 10 A&P - Hospitalist Assessment/Plan (1) Toe infection: (2) Diabetes: (3) Nicotine dependence: (4) Hypertension: (5) Hypomagnesemia: (6) Diabetic foot infection: (7) Hypophosphatemia: (8) Peripheral vascular disease: Plan Recurrent great toe infection associated with distal ulceration. Patient had incision and drainage by podiatry She continues to be on Unasyn. ID is following I ordered PVR which came back positive for PVD. I requested vascular evaluation Hypomagnesemia and hypophosphatemia. Phosphorus and magnesium supplementation. Diabetes. Sliding scale coverage. Counseling about diabetes and diet Hypertension, poor control. Resume home lisinopril 40 mg daily. I added amlodipine daily DVT prophylaxis Lovenox subcu injection. Documented By: Jeana Martini MD 08/21/22 1008 Signed By: <Electronically signed by Jeana Martini MD> 08/21/22 1010 [facility] Work Phone: Progress note Author Lawrence Kim [facility] August 21, 2022 11:22am Note Date/Time August 21, 2022 11: 22am [facility] [address] [place], [place] [id number] Infect. Disease Progress Note Signed Patient: Addie Jean Baptiste MR#: [id number] : 1975 Acct:[id number] Age/Sex: 47 / F Adm Date: 3 Loc: 3T Room: [address] [place] [address] Type: ADM IN Attending Dr: Jeana Martini MD Copies to: ~ Date of Service: 08/21/2022 Subjective Interval history: Patient denies any new complaints. Incision and drainage performed at bedside yesterday. No culture sent. Remains on Unasyn Exam Physical Exam Vital Signs: Temp Pulse Resp BP Pulse Ox O2 Del Method 97.6 F 113 H 16 139/73 98 Room Air 08/21/22 08:29 08/21/22 08:29 08/21/22 08:29 08/21/22 08:29 08/21/22 08:29 08/21/22 08:29 Const General: cooperative, comfortable and no acute distress Orientation: oriented x3 HEENT Head: normal to inspection Nose: external nose normal Eyes General: appearance normal, both eyes and all related structures Neck Neck: normal visual inspection Chest Chest palpation & inspection: normal inspection of the chest Resp Effort & Inspection: normal respiratory effort Auscultation: clear to auscultation bilaterally Cardio Rate: regular rate Rhythm: regular rhythm GI Inspection: normal to inspection Palpation: soft and nontender Auscultation: normal bowel sounds Skin Lesions: lesion noted (Denuded skin noted over toe with serous drainage. ) Other: Per the hospitalist H&P there is streaking going up the forefoot but I do not appreciate that currently Extrem General: normal to inspection Objective Labs CBC/BMP: CBC, BMP 08/21/22 08/21/22 05:20 05:20 Corrected WBC 8.2 Uncorrected WBC Count 8.2 RBC 3.41 L Hgb 10.7 L Hct 31.3 L Plt Count 291 Sodium 142 Potassium 4.3 Chloride 109 H Carbon Dioxide 26.3 Anion Gap 11.0 BUN 18 Creatinine 1.47 H D Calcium 8.9 Labs: 08/21/22 05:20 BUN 18 Creatinine 1.47 H D Microbiology Microbiology: Microbiology - Results from entire visit 08/20/22 10:13 Blood - Right Antecubital Blood Culture - Preliminary No Growth 1 Day Allergies and Medications Allergies and Active Meds Allergies adhesive tape Allergy (Verified 08/19/22 21:48) Hives codeine Allergy (Verified 08/19/22 21:48) Vomiting fentanyl Allergy (Verified 08/19/22 21:48) Hives ibuprofen Allergy (Verified 08/19/22 21:48) Unknown Reaction Iodinated Contrast Media Allergy (Verified 08/19/22 21:48) Unknown Reaction ketorolac [From Toradol] Allergy (Verified 08/19/22 21:48) Vomiting latex Allergy (Verified 08/19/22 21:48) Hives propoxyphene [From Darvocet-N] Allergy (Verified 08/19/22 21:48) Vomiting tramadol Allergy (Verified 08/19/22 21:48) Vomiting vancomycin Allergy (Verified 08/19/22 21:48) Unknown Reaction linezolid [From Zyvox] Adverse Reaction (Verified 08/19/22 21:48) Vomiting Active Medications Acetaminophen (Acetaminophen 325 Mg Tablet) 650 mg PO Q4H PRN PRN Reason: Pain Scale 1 - 3 or fever Stop: 08/20/23 03:40 Amlodipine Besylate (Amlodipine 5 Mg Tablet) 5 mg PO DAILY [facility] Stop: 08/20/23 09:39 Last Admin: 08/21/22 09:00 Dose: 5 mg Clonidine HCl (Clonidine 0.1 Mg Tablet) 0.1 mg PO Q4H PRN PRN Reason: Hypertension Stop: 08/20/23 03:40 Dextrose (Dextrose 50% In Water 25 Gm/50 Ml Syringe) 0 gm IV-PUSH PRN PRN PRN Reason: Hypoglycemia Stop: 08/20/23 03:40 Dextrose (Dextrose 50% In Water 25 Gm/50 Ml Syringe) 0 gm IV-PUSH PRN PRN PRN Reason: Hypoglycemia Stop: 08/20/23 10:20 Enoxaparin Sodium (Enoxaparin 40 Mg/0.4 Ml Syringe) 40 mg SUBCUT DAILY@1000 SAMEER Stop: 08/20/23 09:59 Last Admin: 08/21/22 09:01 Dose: 40 mg Ergocalciferol (Ergocalciferol 1,250 Mcg (50,000 Units) Capsule) 1,250 mcg PO Q7D SAMEER Stop: 08/20/23 09:44 Last Admin: 08/20/22 14:44 Dose: Not Given Furosemide (Furosemide 20 Mg Tablet) 20 mg PO DAILY.8A [facility] Stop: 08/20/23 07:59 Last Admin: 08/21/22 09:00 Dose: 20 mg Glucose (Dextrose 40% Gel 15 Gm Tube) 0 gm PO PRN PRN PRN Reason: Hypoglycemia Stop: 08/20/23 03:40 Glucose (Dextrose 40% Gel 15 Gm Tube) 0 gm PO PRN PRN PRN Reason: Hypoglycemia Stop: 08/20/23 10:20 Ampicillin Sodium/Sulbactam Sodium (Unasyn) 3 gm in 100 mls @ 200 mls/hr IV Q6HSCH Last Admin: 08/21/22 09:02 Dose: 200 mls/hr Sodium Phosphate 30 mmol/ (Sodium Chloride) 260 mls @ 43.333 mls/hr IV ONCE ONE Stop: 08/21/22 13:59 Insulin Aspart (Insulin Aspart 300 Units/3 Ml Insuln.Pen) 0 units SUBCUT TID.WM.[facility]; Protocol Stop: 08/20/23 11:59 Last Admin: 08/21/22 09:03 Dose: Not Given Levetiracetam (Levetiracetam 250 Mg Tablet) 750 mg PO BID [facility] Stop: 08/20/23 08:59 Last Admin: 08/21/22 08:59 Dose: 750 mg Levothyroxine Sodium (Levothyroxine 75 Mcg Tablet) 75 mcg PO DAILY@0630 [facility] Stop: 08/20/23 06:29 Last Admin: 08/21/22 06:09 Dose: 75 mcg Lisinopril (Lisinopril 40 Mg Tablet) 40 mg PO DAILY [facility] Stop: 08/20/23 08:59 Last Admin: 08/21/22 09:01 Dose: 40 mg Metformin HCl (Metformin 500 Mg Tablet) 1,000 mg PO BID.WITH.MEALS [facility] Stop: 08/20/23 07:59 Last Admin: 08/21/22 09:00 Dose: 1,000 mg Pantoprazole Sodium (Pantoprazole 40 Mg Tablet.Dr) 40 mg PO DAILY [facility] Stop: 08/21/23 08:59 Last Admin: 08/21/22 09:01 Dose: 40 mg Pregabalin (Pregabalin 150 Mg Capsule) 150 mg PO [facility] Stop: 02/16/23 03:44 Last Admin: 08/20/22 21:12 Dose: 150 mg Quetiapine Fumarate (Quetiapine Fumarate 200 Mg Tablet) 800 mg PO [facility] Stop: 08/20/23 03:59 Last Admin: 08/20/22 21:12 Dose: 800 mg Saccharomyces Boulardii (Saccharomyces Boulardii 250 Mg Capsule) 250 mg PO BID.WITH.MEALS SAMEER Stop: 08/20/23 07:59 Last Admin: 08/21/22 08:59 Dose: 250 mg Sodium Chloride (Sodium Chloride 0.9 % 10 Ml Syringe) 0 ml IV-PUSH PRN PRN PRN Reason: Flush Stop: 08/19/23 21:46 Last Admin: 08/21/22 03:28 Dose: 10 ml Tizanidine HCl (Tizanidine 4 Mg Tablet) 4 mg PO TID PRN PRN Reason: Muscle Spasm Stop: 08/20/23 03:43 Last Admin: 08/20/22 21:12 Dose: 4 mg Tramadol HCl (Tramadol 50 Mg Tablet) 50 mg PO Q6H PRN PRN Reason: Pain Scale 6 - 10 Stop: 02/16/23 09:04 Last Admin: 08/20/22 21:12 Dose: 50 mg A&P - Infectious Disease Assessment/Plan (1) Toe infection: Code(s): L08.9 - Local infection of the skin and subcutaneous tissue, unspecified Status: Acute Plan Now vascular has been consulted based on PVRs. We will send prescription for Augmentin to her pharmacy so she can pick this up when discharge plan. Can continue on IV Unasyn while she remains in the hospital. Only blood cultures done this hospital stay without any cultures taken from the toe itself. Documented By: Lawrence Kim MD 08/21/22 1119 Signed By: <Electronically signed by MD Lawrence Kim> 08/21/22 1122 [facility] Work Phone: Progress note Author Jeana Martini [facility] August 22, 2022 9:54am Note Date/Time August 22, 2022 9:5 5am [facility] [address] [place] [address] Hospitalist Progress Note Signed Patient: Addie Jean Baptiste MR#: [id number] : 1975 Acct:[id number] Age/Sex: 47 / F Adm Date: 3 Loc: 3T Room: [address] [place] [address] Type: ADM IN Attending Dr: Jeana Martini MD Copies to: ~ Date of Service: 08/22/2022 Subjective Subjective Narrative: Following up on the patient. No new symptoms since yesterday. Exam Physical Exam Vital Signs: Temp Pulse Resp BP Pulse Ox O2 Del Method 98.2 F 89 18 100/61 99 Room Air 08/22/22 04:00 08/22/22 04:00 08/22/22 04:00 08/22/22 04:00 08/22/22 04:00 08/22/22 04:00 Narrative: [pt is awake and alert. oriented to place, time and person, morbidly obese HEENT: [place] conjunctiva and NL buccal mucosa Neck: Supple, no tenderness Endocrine: No Thyromegaly. Vascular: No JVD or carotid bruit. Lymphatic: No cervical lymphadenopathy. Chest: CTA no DTP. Heart RRR, no extra sound or murmur. Abd: Soft, no tenderness, no rebound and no rigidity. Increase abd girth therefore clinically I could not exclude the possibility of intra abd mass or organomegaly. LE: No cyanosis or clubbing, no varices or edema. Toe and foot are wrapped after incision and drainage was completed by podiatry on 08/20. To be inspected by podiatry and infectious disease. Neuro: A A O. Nl speech, comprehension and attention. Nl and symetrical motor and tone examination through out. []] Objective Lab Results 08/21/22 05:20 08/22/22 05:50 Microbiology Results Microbiology 08/20/22 15:49 Blood - Port Blood Culture - Preliminary No Growth 1 Day 08/20/22 10:13 Blood - Right Antecubital Blood Culture - Preliminary No Growth 1 Day Meds Allergies and Active Meds Allergies adhesive tape Allergy (Verified 08/19/22 21:48) Hives codeine Allergy (Verified 08/19/22 21:48) Vomiting fentanyl Allergy (Verified 08/19/22 21:48) Hives ibuprofen Allergy (Verified 08/19/22 21:48) Unknown Reaction Iodinated Contrast Media Allergy (Verified 08/19/22 21:48) Unknown Reaction ketorolac [From Toradol] Allergy (Verified 08/19/22 21:48) Vomiting latex Allergy (Verified 08/19/22 21:48) Hives propoxyphene [From Darvocet-N] Allergy (Verified 08/19/22 21:48) Vomiting tramadol Allergy (Verified 08/19/22 21:48) Vomiting vancomycin Allergy (Verified 08/19/22 21:48) Unknown Reaction linezolid [From Zyvox] Adverse Reaction (Verified 08/19/22 21:48) Vomiting Active Meds: Active Medications Generic Name Dose Route Start Last Admin Trade Name Gretchen PRN Reason Stop Dose Admin Acetaminophen 650 mg 08/20/22 03:41 Acetaminophen 325 Mg Tablet PO 08/20/23 03:40 Q4H PRN Pain Scale 1 - 3 or fever Aspirin 81 mg 08/21/22 14:30 08/22/22 08:26 Aspirin 81 Mg Tablet.Dr PO 08/21/23 14:29 81 mg DAILY SAMEER Administration Atorvastatin Calcium 40 mg 08/21/22 21:00 08/21/22 21:01 Atorvastatin 40 Mg Tablet PO 08/21/23 20:59 40 mg QPM SAMEER Administration Clonidine HCl 0.1 mg 08/20/22 03:41 Clonidine 0.1 Mg Tablet PO 08/20/23 03:40 Q4H PRN Hypertension Dextrose 0 gm 08/20/22 03:41 Dextrose 50% In Water 25 Gm/50 Ml Syringe IV-PUSH 08/20/23 03:40 PRN PRN Hypoglycemia Dextrose 0 gm 08/20/22 10:21 Dextrose 50% In Water 25 Gm/50 Ml Syringe IV-PUSH 08/20/23 10:20 PRN PRN Hypoglycemia Enoxaparin Sodium 40 mg 08/21/22 22:00 08/21/22 21:01 Enoxaparin 40 Mg/0.4 Ml Syringe SUBCUT 08/21/23 21:59 40 mg BID@1000,2200 SAMEER Administration Ergocalciferol 1,250 mcg 08/20/22 09:45 08/20/22 14:44 Ergocalciferol 1,250 Mcg (50,000 Units) Capsule PO 08/20/23 09:44 Not Given Q7D SAMEER Furosemide 20 mg 08/20/22 08:00 08/21/22 09:00 Furosemide 20 Mg Tablet PO 08/20/23 07:59 20 mg DAILY.8A SAMEER Administration Glucose 0 gm 08/20/22 03:41 Dextrose 40% Gel 15 Gm Tube PO 08/20/23 03:40 PRN PRN Hypoglycemia Glucose 0 gm 08/20/22 10:21 Dextrose 40% Gel 15 Gm Tube PO 08/20/23 10:20 PRN PRN Hypoglycemia Ampicillin Sodium/Sulbactam Sodium 3 gm in 100 mls @ 200 mls/hr 08/20/22 08:30 08/22/22 02:53 Unasyn IV 200 mls/hr Q6H SAMEER Administration Sodium Chloride 1,000 mls @ 100 mls/hr 08/21/22 14:45 08/22/22 08:26 0.9% Sodium Chloride 1,000 Ml IV 08/23/22 06:44 100 mls/hr .Q10H SAMEER Administration Insulin Aspart 0 units 08/20/22 12:00 08/22/22 08:27 Insulin Aspart 300 Units/3 Ml Insuln.Pen SUBCUT 08/20/23 11:59 Not Given TID.WM.HS SAMEER Protocol Levetiracetam 750 mg 08/20/22 09:00 08/22/22 08:26 Levetiracetam 250 Mg Tablet PO 08/20/23 08:59 750 mg BID SAMEER Administration Levothyroxine Sodium 75 mcg 08/20/22 06:30 08/22/22 05:36 Levothyroxine 75 Mcg Tablet PO 08/20/23 06:29 75 mcg DAILY@0630 SAMEER Administration Lisinopril 10 mg 08/22/22 09:00 08/22/22 08:27 Lisinopril 10 Mg Tablet PO 08/22/23 08:59 10 mg DAILY SAMEER Administration Metformin HCl 1,000 mg 08/20/22 08:00 08/22/22 08:26 Metformin 500 Mg Tablet PO 08/20/23 07:59 1,000 mg BID.WITH.MEALS SAMEER Administration Pantoprazole Sodium 40 mg 08/21/22 09:00 08/22/22 08:26 Pantoprazole 40 Mg Tablet. PO 08/21/23 08:59 40 mg DAILY SAMEER Administration Pregabalin 150 mg 08/20/22 03:45 08/21/22 21:01 Pregabalin 150 Mg Capsule PO 02/16/23 03:44 150 mg HS SAMEER Administration Quetiapine Fumarate 800 mg 08/20/22 04:00 08/21/22 21:01 Quetiapine Fumarate 200 Mg Tablet PO 08/20/23 03:59 800 mg HS SAMEER Administration Saccharomyces Boulardii 250 mg 08/20/22 08:00 08/22/22 08:26 Saccharomyces Boulardii 250 Mg Capsule PO 08/20/23 07:59 250 mg BID.WITH.MEALS SAMEER Administration Sodium Chloride 0 ml 08/19/22 21:47 08/22/22 05:36 Sodium Chloride 0.9 % 10 Ml Syringe IV-PUSH 08/19/23 21:46 20 ml PRN PRN Administration Flush Tizanidine HCl 4 mg 08/20/22 03:44 08/21/22 21:01 Tizanidine 4 Mg Tablet PO 08/20/23 03:43 4 mg TID PRN Administration Muscle Spasm Tramadol HCl 50 mg 08/20/22 09:05 08/21/22 13:06 Tramadol 50 Mg Tablet PO 02/16/23 09:04 50 mg Q6H PRN Administration Pain Scale 6 - 10 A&P - Hospitalist Assessment/Plan (1) Toe infection: (2) Diabetes: (3) Nicotine dependence: (4) Hypertension: (5) Hypomagnesemia: (6) Diabetic foot infection: (7) Hypophosphatemia: (8) Peripheral vascular disease: Plan Recurrent great toe infection associated with distal ulceration. Patient had incision and drainage by podiatry She continues to be on Unasyn. ID is following. Plan is to discharge patient on oral Augmentin Peripheral vascular disease Discussed this with Dr. Romero. He is recommending angiogram. Continue IV fluid hydration. Hypomagnesemia and hypophosphatemia. Phosphorus and magnesium supplementation. Diabetes. Sliding scale coverage. Counseling about diabetes and diet Hypertension, BP on the low side requiring holding her BP meds DVT prophylaxis Lovenox subcu injection. Documented By: Jeana Martini MD 08/22/2253 Signed By: <Electronically signed by Jeana Martini MD> 08/22/22 0954 [facility] Work Phone: Progress note Author Shameka Romero [facility] August 22, 2022 9:56am Note Date/Time August 22, 2022 9:5 6am [facility] [address] [place], [place] [id number] Vascular Surgery Progress Note Signed Patient: Addie Jean Baptiste MR#: [id number] : 1975 Acct:[id number] Age/Sex: 47 / F Adm Date: 3 Loc: 3T Room: [address] [place] [address] Type: ADM IN Attending Dr: Jeana Martini MD Copies to: ~ Date of Service: 08/22/2022 Subjective Subjective Interval history: Patient is extremely anxious this morning and concerned about the procedure. Exam Physical Exam Vital Signs: Temp Pulse Resp BP Pulse Ox O2 Del Method 98.2 F 89 18 100/61 99 Room Air 08/22/22 04:00 08/22/22 04:00 08/22/22 04:00 08/22/22 04:00 08/22/22 04:00 08/22/22 04:00 Const General: anxious Objective Labs 08/21/22 05:20 08/22/22 05:50 Other Labs: Laboratory Results - last 24 hr 08/21/22 08/21/22 08/21/22 11:11 16:25 21:19 PHA Creatinine Clear Sodium Potassium Chloride Carbon Dioxide Anion Gap BUN Creatinine Est GFR (CKD-EPI) Glucose POC Glucose 81 206 339 POC Glucose Comment Glu2: cleaned meter Glu2: cleaned meter Calcium Phosphorus Magnesium 08/22/22 08/22/22 05:50 06:43 PHA Creatinine Clear 70.62 Sodium 143 Potassium 4.0 Chloride 111 H Carbon Dioxide 25.9 Anion Gap 10.1 BUN 20 Creatinine 1.22 H Est GFR (CKD-EPI) 55.771 Glucose 141 H POC Glucose 140 POC Glucose Comment Glu2: cleaned meter Calcium 8.1 L Phosphorus 3.8 Magnesium 1.6 L Microbiology Microbiology: Microbiology - Results from entire visit 08/20/22 15:49 Blood - Port Blood Culture - Preliminary No Growth 1 Day 08/20/22 10:13 Blood - Right Antecubital Blood Culture - Preliminary No Growth 1 Day A&P - Vascular Assessment/Plan (1) Peripheral vascular disease: My initial intention was to perform a left leg angiogram on this patient in order to assess her blood supply and potentially improve the blood supply to theleft foot. We did bring the patient down to the special suite and placed her onthe angiography table. She is extremely anxious and mildly distraught. In addition the nursing staff was having difficulty with the IV access. I decided to abort the procedure today for concerns of patient's safety and comfort. Thisprocedure will need to be scheduled in the operating room setting. I recommend we have anesthesia involved in order to protect her airway and provide adequate anesthesia and comfort for the patient. This is not an emergency and we can arrange this as an outpatient. Code(s): I73.9 - Peripheral vascular disease, unspecified Status: Acute (2) Abscess of toenail on left foot: Code(s): L03.032 - Cellulitis of left toe Status: Acute Documented By: Shameka Romero MD 08/22/22 0954 Signed By: <Electronically signed by Shameka Romero MD> 08/22/22 0956 [facility] Work Phone: Reason for referral (narrative)* Consultation (Routine) - New Request Specialty Diagnoses / Procedures Referred By Richa ruff Referred To [facility] Diagnoses Pain of left lower leg Tonia Ridley APRN-FURS SALESPERSON [address] [place] [address] Referral ID Status Reason Start Date Expiration Date V isits Requested Visits Authorized [id number] New Request 08/26/2023 09/19/2024 1 1 Electronically signed by Tonia Ridley EDUCATIONAL SPEECH LANGUAGE CLINICIAN-FURS SALESPERSON at 08/26/2023 7:28 PM EDT [facility] Narrativewondering about R/S for procedurePort [place] ipDatatel Other Assessments Diagnosis Acute exacerbation of chroni c low back pain - Primary Diagnosis Diabetic infection of left foot (HCC)- Primary Type 2 diabetes mellitus with left diabetic foot infection (HCC) Abscess of chin Cellulitis and abscess of face Diabetes mellitus type II, uncontrolled (HCC) Type II or unspecified type diabetes mellitus without mention of complication, uncontrolled Hypertension Unspecified essential hypertension Bipolar 1 disorder (HCC) Seizures (HCC) Other convulsions Summary Purpose Family History No Family History Records Found Relationship Condition Age at Onset Recorded Date/T megan father Coronary artery disease Unknown Diabetes mellitus Unknown Hypertension Unknown Not Specified Seizure Unknown brother Blood disorder Unknown Relationship Condition Age at Onset Recorded Date/T megan father Type 2 diabetes mellitus Unknown Heart disease Unknown mother Rheumatoid arthritis Unknown Advance Directives No Advanced Directives Records FoundDocuments on File Type Date Recorded Patient First Assistant Manager Expl anation Advance Directives and Livin g Will 06/03/2020 2:34 PM Latest Code Status on File Code Status Date Activated Date Inactivated Comments Full Code 06/04/2020 1:01 PM 06/05/2020 9:32 PM Full Code - Unverified 06/03/2020 4:28 PM 06/04/2020 1:0 1 PM Full Code 12/03/2014 7:14 PM 12/09/2014 3:53 PM Full Code 11/30/2014 6:45 PM 12/03/2014 7:14 PM Latest Code Status on File Code Status Date Activated Date Inactivated Comments Full Code 05/25/2015 10:03 PM 05/28/2015 9:21 PM Advance Directive Response Recorded Date/ Time Advance Directives No February 23, 2017 2:30pm Latest Code Status on File Code Status Date Activated Date Inactivated Comments Full Code 01/12/2023 8:16 PM 01/14/2023 12:34 PM Code Status History Code Status Date Activated Date Inactivated Comments Full Code 06/04/2020 1:01 PM 06/05/2020 9:32 PM Full Code - Unverified 06/03/2020 4:28 PM 06/04/2020 1:0 1 PM Full Code 12/03/2014 7:14 PM 12/09/2014 3:53 PM Full Code 11/30/2014 6:45 PM 12/03/2014 7:14 PM Latest Code Status on File Code Status Date Activated Date Inactivated Comments Full Code 02/18/2023 12:28 AM 02/20/2023 4:55 PM Code Status History Code Status Date Activated Date Inactivated Comments Full Code 01/12/2023 8:16 PM 01/14/2023 12:34 PM Full Code 06/04/2020 1:01 PM 06/05/2020 9:32 PM Full Code - Unverified 06/03/2020 4:28 PM 06/04/2020 1:0 1 PM Full Code 12/03/2014 7:14 PM 12/09/2014 3:53 PM Latest Code Status on File Code Status Date Activated Date Inactivated Comments Full Code 03/29/2023 1:43 PM 03/30/2023 5:31 PM Code Status History Code Status Date Activated Date Inactivated Comments Full Code 02/18/2023 12:28 AM 02/20/2023 4:55 PM Full Code 01/12/2023 8:16 PM 01/14/2023 12:34 PM Full Code 06/04/2020 1:01 PM 06/05/2020 9:32 PM Full Code - Unverified 06/03/2020 4:28 PM 06/04/2020 1:0 1 PM Latest Code Status on File Code Status Date Activated Date Inactivated Comments Full Code 04/01/2023 3:47 PM Code Statu s reflects patient's informed choice. Code Status History Code Status Date Activated Date Inactivated Comments Full Code 03/29/2023 1:43 PM 03/30/2023 5:31 PM Full Code 02/18/2023 12:28 AM 02/20/2023 4:55 PM Full Code 01/12/2023 8:16 PM 01/14/2023 12:34 PM Full Code 06/04/2020 1:01 PM 06/05/2020 9:32 PM Latest Code Status on File Code Status Date Activated Date Inactivated Comments Full Code 04/01/2023 3:47 PM Code Statu s reflects patient's informed choice. Code Status History Code Status Date Activated Date Inactivated Comments Full Code 03/29/2023 1:43 PM 03/30/2023 5:31 PM Full Code 02/18/2023 12:28 AM 02/20/2023 4:55 PM Full Code 01/12/2023 8:16 PM 01/14/2023 12:34 PM Full Code 06/04/2020 1:01 PM 06/05/2020 9:32 PM Latest Code Status on File Code Status Date Activated Date Inactivated Comments Full Code 04/01/2023 3:47 PM 04/26/2023 5:18 PM Code Status reflects patient's informed choice. Latest Code Status on File Code Status Date Activated Date Inactivated Comments Full Code 05/10/2023 4:09 PM Code Status History Code Status Date Activated Date Inactivated Comments Full Code 04/01/2023 3:47 PM 04/26/2023 5:18 PM Code Status reflects patient's informed choice. Full Code 03/29/2023 1:43 PM 03/30/2023 5:31 PM Full Code 02/18/2023 12:28 AM 02/20/2023 4:55 PM Full Code 01/12/2023 8:16 PM 01/14/2023 12:34 PM Latest Code Status on File Code Status Date Activated Date Inactivated Comments Full Code 05/10/2023 4:09 PM 05/13/2023 6:15 PM Code Status History Code Status Date Activated Date Inactivated Comments Full Code 04/01/2023 3:47 PM 04/26/2023 5:18 PM Code Status reflects patient's informed choice. Full Code 03/29/2023 1:43 PM 03/30/2023 5:31 PM Full Code 02/18/2023 12:28 AM 02/20/2023 4:55 PM Full Code 01/12/2023 8:16 PM 01/14/2023 12:34 PM Latest Code Status on File Code Status Date Activated Date Inactivated Comments Full Code 05/10/2023 4:09 PM 05/13/2023 6:15 PM Documents on File Type Date Recorded Patient First Assistant Manager Expl anation Advance Directives and Livin g Will 07/08/2023 8:24 PM Documents on File Type Date Recorded Patient First Assistant Manager Expl anation Advance Directives and Livin g Will 07/08/2023 8:24 PM Date Activated Date Inactivated Comments 05/10/2023 4:09 PM 05/13/2023 6:15 PM Date Activated Date Inactivated Comments 04/01/2023 3:47 PM 04/26/2023 5:18 PM Code Status reflects patient's informed choice. Date Activated Date Inactivated Comments 03/29/2023 1:43 PM 03/30/2023 5:31 PM Date Activated Date Inactivated Comments 02/18/2023 12:28 AM 02/20/2023 4:55 PM Date Activated Date Inactivated Comments 01/12/2023 8:16 PM 01/14/2023 12:34 PM Latest Code Status on File Code Status Date Activated Date Inactivated Comments Full Code 03/30/2017 9:46 AM 04/01/2017 3:40 PM Date Activated Date Inactivated Comments 05/10/2023 4:09 PM 05/13/2023 6:15 PM Date Activated Date Inactivated Comments 04/01/2023 3:47 PM 04/26/2023 5:18 PM Code Status reflects patient's informed choice. Date Activated Date Inactivated Comments 03/29/2023 1:43 PM 03/30/2023 5:31 PM Date Activated Date Inactivated Comments 02/18/2023 12:28 AM 02/20/2023 4:55 PM Date Activated Date Inactivated Comments 01/12/2023 8:16 PM 01/14/2023 12:34 PM Date Activated Date Inactivated Comments 03/30/2017 9:46 AM 04/01/2017 3:40 PM Documents on File Type Date Recorded Patient First Assistant Manager Expl anation Advance Directives and Livin g Will 11/09/2023 8:44 PM Documents on File Type Date Recorded Patient First Assistant Manager Expl anation Advance Directives and Livin g Will 11/09/2023 8:44 PM Date Activated Date Inactivated Comments 01/12/2024 5:17 PM Date Activated Date Inactivated Comments 05/10/2023 4:09 PM 05/13/2023 6:15 PM Date Activated Date Inactivated Comments 04/01/2023 3:47 PM 04/26/2023 5:18 PM Code Status reflects patient's informed choice. Date Activated Date Inactivated Comments 03/29/2023 1:43 PM 03/30/2023 5:31 PM Date Activated Date Inactivated Comments 02/18/2023 12:28 AM 02/20/2023 4:55 PM Date Activated Date Inactivated Comments 01/12/2024 5:17 PM 01/18/2024 4:48 PM Date Activated Date Inactivated Comments 05/10/2023 4:09 PM 05/13/2023 6:15 PM Date Activated Date Inactivated Comments 04/01/2023 3:47 PM 04/26/2023 5:18 PM Code Status reflects patient's informed choice. Date Activated Date Inactivated Comments 03/29/2023 1:43 PM 03/30/2023 5:31 PM Date Activated Date Inactivated Comments 02/18/2023 12:28 AM 02/20/2023 4:55 PM Date Activated Date Inactivated Comments 01/12/2024 5:17 PM 01/18/2024 4:48 PM Date Activated Date Inactivated Comments 03/25/2024 12:34 AM Date Activated Date Inactivated Comments 01/12/2024 5:17 PM 01/18/2024 4:48 PM Date Activated Date Inactivated Comments 05/10/2023 4:09 PM 05/13/2023 6:15 PM Date Activated Date Inactivated Comments 04/01/2023 3:47 PM 04/26/2023 5:18 PM Code Status reflects patient's informed choice. Date Activated Date Inactivated Comments 03/29/2023 1:43 PM 03/30/2023 5:31 PM Date Activated Date Inactivated Comments 03/25/2024 12:34 AM 04/04/2024 7:43 PM Date Activated Date Inactivated Comments 04/27/2024 1:09 AM Date Activated Date Inactivated Comments 04/26/2024 11:46 PM 04/27/2024 1:09 AM Date Activated Date Inactivated Comments 03/25/2024 12:34 AM 04/04/2024 7:43 PM Date Activated Date Inactivated Comments 01/12/2024 5:17 PM 01/18/2024 4:48 PM Date Activated Date Inactivated Comments 05/10/2023 4:09 PM 05/13/2023 6:15 PM Date Activated Date Inactivated Comments 04/27/2024 1:09 AM 04/29/2024 5:58 PM Date Activated Date Inactivated Comments 04/27/2024 1:09 AM 04/29/2024 5:58 PM Date Activated Date Inactivated Comments 04/26/2024 11:46 PM 04/27/2024 1:09 AM Date Activated Date Inactivated Comments 03/25/2024 12:34 AM 04/04/2024 7:43 PM Date Activated Date Inactivated Comments 01/12/2024 5:17 PM 01/18/2024 4:48 PM Date Activated Date Inactivated Comments 05/10/2023 4:09 PM 05/13/2023 6:15 PM Advance Directive Response Recorded Date/ Time Living Will No July 05, 12:07pm Health Care POA No July 05 015 12:07pm DNR CC/CCA Form Complete No 2014 12:07pm Organ Donor No July 05 12:07pm Hospital Course Note Send Summary: Discharge Summ margoth Providers: Provider RoleProvider Name Rosalia Mendez Samuel E AttendingQuan, Kara Note Recipients: Rosalia Noble MD - [id number] [preferred] Italo Headley MD - [id number] [] Discharge: Summary: Admission Date: .06-Apr-2019 06:38:00 Discharge Date: 07-Apr-2019 Attending Physician at Discharge: Rosalia Noble Admission Reason: sustained ventricular tachycardia Final Discharge Diagnoses: sustained ventricular tachycardia dual chamber ICD Procedures: electrophysiology studies and dual chamber PPM upgrade to dual chamber ICD Condition at Discharge: Satisfactory Disposition at Discharge: .Home Vital Signs: T PRBPSpO2 [id number]% Date/Time04/07 8: 8: 8: 8: 8:00 Range(36.2C - 36.4C ) (86 - 109 ) (16 - 18 ) (110 - 148 )/ (68 - 109 ) (95% - 96% ) Hospital Course: 43 year old female admitted to with history of sustained Ventricular tachycardia for electrophysiology studies and PPM upgrade to dual chamber ICD. (more content not included)... Discharge Instructions * Discharge Instr - Other Orders* Karen Laguna RN - 06/05/2020 6:17 PM EST Change left great toe dressing daily using triple antibiotic ointment and gauze that you were provided. * Additional Instructions* Bridger Garner MD - 06/05/2020 Diabetes Foot Health: Care Instructions Your Care Instructions When you have diabetes, your feet need extra care and attention. Diabetes can damage the nerve endings and blood vessels in your feet, making you less likely to notice when your feet are injured. Diabetes also limits your body's ability to fight infection and get blood to areas that need it. If youget a minor foot injury, it could become an ulcer or a serious infection. With good foot care, you can prevent most of these problems. Caring for your feet can be quick and easy. Most of the care can be done when you are bathing or getting ready for bed. Follow-up care is a mckinnon part of your treatment and safety. Be sure to make and go to all appointments, and call your doctor if you are having problems. It's also a good idea to know your test resultsand keep a list of the medicines you take. How can you care for yourself at home? Keep your blood sugar close to normal by watching what and how much you eat, monitoring blood sugar, taking medicines if prescribed, and getting regular exercise. Do not smoke. Smoking affects blood flow and can make foot problems worse. If you need help quitting, talk to your doctor about stop-smoking programs and medicines. These can increase your chances ofquitting for good. Eat a diet that is low in fats. High fat intake can cause fat to build up in your blood vessels anddecrease blood flow. Inspect your feet daily for blisters, cuts, cracks, or sores. If you cannot see well, use a mirror or have someone help you. Take care of your feet: ? Wash your feet every day. Use warm (not hot) water. Check the water temperature with your wrists or other part of your body, not your feet. ? Dry your feet well. Pat them dry. Do not rub the skin on your feet too hard. Dry well between your toes. If the skin on your feet stays moist, bacteria or a fungus can grow, which can lead to infection. ? Keep your skin soft. Use moisturizing skin cream to keep the skin on your feet soft and prevent calluses and cracks. But do not put the cream between your toes, and stop using any cream that causesa rash. ? Clean underneath your toenails carefully. Do not use a sharp object to clean underneath your toenails. Use the blunt end of a nail file or other rounded tool. ? Trim and file your toenails straight across to prevent ingrown toenails. Use a nail clipper, not scissors. Use an emery board to smooth the edges. Change socks daily. Socks without seams are best, because seams often rub the feet. You can find socks for people with diabetes from specialty catalogs. Look inside your shoes every day for things like gravel or torn linings, which could cause blistersor sores. Buy shoes that fit well: ? Look for shoes that have plenty of space around the toes. This helps prevent bunions and blisters. ? Try on shoes while wearing the kind of socks you will usually wear with the shoes. ? Avoid plastic shoes. They may rub your feet and cause blisters. Good shoes should be made of materials that are flexible and breathable, such as leather or cloth. ? Break in new shoes slowly by wearing them for no more than an hour a day for several days. Take extra time to check your feet for red areas, blisters, or other problems after you wear new shoes. Do not go barefoot. Do not wear sandals, and do not wear shoes with very thin soles. Thin soles areeasy to puncture. They also do not protect your feet from hot pavement or cold weather. Have your doctor check your feet during each visit. If you have a foot problem, see your doctor. Donot try to treat an early foot problem at home. Home remedies or treatments that you can buy without a prescription (such as corn removers) can be harmful. Always get early treatment for foot problems. A minor irritation can lead to a major problem if notproperly cared for early. When should you call for help? Call your doctor now or seek immediate medical care if: You have a foot sore, an ulcer or break in the skin that is not healing after 4 days, bleeding corns or calluses, or an ingrown toenail. You have blue or black areas, which can mean bruising or blood flow problems. You have peeling skin or tiny blisters between your toes or cracking or oozing of the skin. You have a fever for more than 24 hours and a foot sore. You have new numbness or tingling in your feet that does not go away after you move your feet or change positions. You have unexplained or unusual swelling of the foot or ankle. Watch closely for changes in your health, and be sure to contact your doctor if: You cannot do proper foot care. Where can you learn more? Log into your personal health record on https://[employer] and enter A739 in the Education box to learn more about Diabetes Foot Health: Care Instructions. Current as of: January 23, 2020 Content Version: 12.7 [employer]. Care instructions adapted under license by your healthcare professional. If you have questions about a medical condition or this instruction, always ask your healthcare professional. [employer] disclaims any warranty or liability for your use of this information. documented in this encounter History of Present Illness * Lisa Hendrickson DPM - 06/05/2020 11:00 AM EST Consultation Note Chief Complaint Painful Left great toe w infection. History of Present Illness Patient is a 45 y.o. female w h/o prior MRSA. She states that about a week ago, she raised a blister on the Left great toe, which she noticed when she removed her shoe. The area became more painful and red, so she went to Emergency Department in [place], subsequently came to [facility] and was admitted for cellulitis of the toe. She has been on IVAB, and notes the toe is doing better. There is less redness. She still has pain there. She has had remote h/o MRSA infection of her chin. Review of Systems Denies fevers, chills, chest pain, shortness of breath, nausea, vomiting. She has had bunionectomy Right foot, and ankle fracture repair of the L ankle. Past Medical History Past Medical History: Diagnosis Date Anxiety Bipolar 1 disorder (HCC) Bipolar disorder (HCC) Chronic back pain Coronary artery disease Depression Diabetes mellitus (HCC) Hypertension MRSA (methicillin resistant Staphylococcus aureus) Pacemaker Seizures (HCC) Stroke ([facility]) Past Surgical History Past Surgical History: Procedure Laterality Date CHOLECYSTECTOMY FOOT SURGERY HYSTERECTOMY ORTHOPEDIC SURGERY left foot surgery PACEMAKER INSERTION Medications No current facility-administered medications on file prior to encounter. Current Outpatient Medications on File Prior to Encounter Medication Sig Dispense Refill atorvastatin (LIPITOR) 20 MG tablet Take 20 mg by mouth nightly 1 busPIRone (BUSPAR) 15 MG tablet 15 mg 2 (two) times a day States takes for 1 more week then goes tohigher dose . cephALEXin (KEFLEX) 500 MG capsule Take 500 mg by mouth 4 (four) times a day . divalproex (DEPAKOTE) 500 MG delayed release (DR) tablet Take 500 mg by mouth 2 (two) times a day . levothyroxine (SYNTHROID, LEVOTHROID) 75 MCG tablet 75 mcg . omeprazole (PRILOSEC) 40 MG capsule Take 40 mg by mouth 2 (two) times a day. pregabalin (LYRICA) 150 MG capsule Take 150 mg by mouth nightly States takes at 2030 at home every night . QUEtiapine (SEROQUEL) 400 MG tablet 800 mg nightly . tiZANidine (ZANAFLEX) 4 MG capsule Take 4 mg by mouth 3 (three) times a day as needed for muscle spasms USES FOR BACK PAIN . ARIPiprazole (ABILIFY) 10 MG tablet Take 10 mg by mouth daily. busPIRone (BUSPAR) 30 MG tablet 30 mg 2 (two) times a day Starts this when done with 15 mg doses x 1 more week . cyclobenzaprine (FLEXERIL) 10 MG tablet Take 1 (one) tablet (10 mg total) by mouth 3 (three) times a day as needed for muscle spasms. 15 tablet 0 Emgality Pen 120 mg/mL Pen every 30 (thirty) days For headaches, had 04/2020; states need to pick it up tomorrow at pharmacy - [facility] in [place] . FLUoxetine (PROZAC) 40 MG capsule Take 40 mg by mouth daily. fluticasone-salmeterol (ADVAIR DISKUS) 250-50 mcg/dose diskus inhaler Inhale 1 puff 2 (two) times aday. hydrOXYzine (ATARAX) 25 MG tablet 25 mg as needed States forgets how many times per day can use--asneeded per patient . insulin lispro (HumaLOG) 100 unit/mL injection Inject under the skin 3 (three) times a day before meals Sliding Scale LANTUS 100 unit/mL injection Inject under the skin 2 (two) times a day 55 units in the evening 60 units in the morning 5 levETIRAcetam (KEPPRA) 500 MG tablet Take 500 mg by mouth 2 (two) times a day . 1 metFORMIN (GLUCOPHAGE) 1000 MG tablet Take 1,000 mg by mouth 2 (two) times a day 3 metoprolol succinate (TOPROL-XL) 50 MG 24 hr tablet Take by mouth . metoprolol tartrate (LOPRESSOR) 25 MG tablet Take 12.5 mg by mouth 2 (two) times a day. Omnipod Insulin Refill Crtg potassium chloride 20 mEq TbER 20 mEq . tiZANidine (ZANAFLEX) 2 MG tablet Vraylar 6 mg cap Take 1 capsule by mouth daily . zolpidem (AMBIEN CR) 6.25 MG CR tablet Take 6.25 mg by mouth nightly as needed for sleep. Allergies Allergies Allergen Reactions Ketorolac Hives, Other (See Comments), Rash and GI Intolerance Messes with seizures Unsure of reaction Tramadol Hives, Rash, Other (See Comments) and GI Intolerance Codeine Other reaction(s): Aggressive Behavior Propoxyphene N-Acetaminophen GI Intolerance Adhesive Itching Ct: Iodinated Contrast- Oral And Iv Dye Other (See Comments) Shuts my kidneys down Fentanyl Ibuprofen Other (See Comments) shuts kidney down Latex Dermatitis Nsaids (Non-Steroidal Anti-Inflammatory Drug) shuts my kidney's down Vancomycin Other (See Comments) Shuts kidney down Propoxyphene GI Intolerance Social History Social History Socioeconomic History Marital status: Spouse name: Not on file Number of children: Not on file Years of education: Not on file Highest education level: Not on file Occupational History Not on file Social Needs Financial resource strain: Not on file Food insecurity Worry: Not on file Inability: Not on file Transportation needs Medical: Not on file Non-medical: Not on file Tobacco Use Smoking status: Former Smoker Packs/day: 1.00 Years: 18.00 Pack years: 18.00 Types: Cigarettes Start date: 09/30/2014 Smokeless tobacco: Never Used Substance and Sexual Activity Alcohol use: No Alcohol/week: 0.0 standard drinks Drug use: No Sexual activity: Not on file Lifestyle Physical activity Days per week: Not on file Minutes per session: Not on file Stress: Not on file Relationships Social connections Talks on phone: Not on file Gets together: Not on file Attends hinduism service: Not on file Active member of club or organization: Not on file Attends meetings of clubs or organizations: Not on file Relationship status: Not on file Other Topics Concern Not on file Social History Narrative Not on file Family History Family History Problem Relation Age of Onset Hypertension Father Diabetes type II Father Seizures Mother - No history of bleeding or clotting disorders Vital Signs Vitals: 06/05/20 0309 06/05/20 0717 06/05/20 0850 06/05/20 0915 BP: 118/68 104/74 BP Location: Right arm Right arm Patient Position: Lying Lying Pulse: 80 76 Resp: 14 15 16 16 Temp: 98.1 F (36.7 C) 97.4 F (36.3 C) TempSrc: Temporal Temporal SpO2: 100% 98% Weight: Height: Ins & Outs Intake/Output Summary (Last 24 hours) at 06/05/2020 1100 Last data filed at 06/05/2020 0653 Gross per 24 hour Intake 2692.21 ml Output 900 ml Net 1792.21 ml PHYSICAL EXAM General: Alert, no apparent distress HEENT: Atraumatic, vision and hearing intact, face symmetric Extremities: warm and well perfused - bilateral upper extremity motorsensory intact - bilateral lower extremity motorsensory intact LE Physical Exam: VASCULAR: DP pulse palpable, bilaterally and PT pulse palpable, bilaterally. CFT < 3 sec to all digits bilateral lower extremities. Pedal hair growth absent , bilaterally. No pallor on elevation or rubor ondependency. Skin temperature warm to warm from tibial tuberosity distally. No edema appreciated . NEUROLOGICAL: Light touch sensation intact to the level of the digits, bilaterally. DERMATOLOGICAL: Skin is warm, dry and supple, B/L. No open wounds or maceration appreciated, right. On the distal Left great toe, distal to the tibial border, there is an eschar. It is about 1 cm wide, and is inferior to the nail. There is (resolving, based on ink marking) erythema there. There is no drainage. The nail appears to be ingrown here. I suspect that the ingrowing nail is responsible, along with incidental trauma, for this infection. I therefore recommend incision and drainage of thearea, with removal of the tibial nail border and culture. Patient gives consent for this procedure. The tibial nail border is swollen, with local erythema. There is some drainage associated and also granuloma. The nail fold is hypertrophic. I discussed the pathogenesis and treatment options, including antibiotics, incision and drainage and, if needed, permanent nail surgery . PRE-OP DX: INGROWN, ABSCESSED, TOENAIL, 1st, left, TIBIAL POST-OP DX: SAME PROCEDURE: INCISION AND DRAINAGE OF ABSCESS, WITH PARTIAL NAIL AVULSION. SURGICAL TRAY DIGITAL ANESTHESIA, 1% xylocaine, 0.5%bupiv. plain. Involved border(s) disected with #316 blade. Nail border removed with cutter operator brick and hemostats under digital anesthesia. All necrotic debris removed. Dressing. I debrided the eschar adjacent to the nail border. A culture was obtained. Well tolerated. LABS: Lab Results Component Value Date WBC 5.46 06/05/2020 WBC 5.95 12/09/2014 HGB 11.4 (L) 06/05/2020 HGB 14.2 04/08/2015 HGB 9.5 (L) 12/09/2014 HGB 15.8 (H) 05/07/2014 HCT 35.1 (L) 06/05/2020 HCT 43.5 04/08/2015 MCV 94.4 06/05/2020 MCV 95.4 12/09/2014 MCV 87.1 05/07/2014 PLT 191 06/05/2020 PLT 271 12/09/2014 PLT 364 05/07/2014 Lab Results Component Value Date NA 146 (H) 06/05/2020 NA 141 12/09/2014 K 3.5 06/05/2020 K 4.6 12/09/2014 CL 119 (H) 06/05/2020 CL 109 (H) 12/09/2014 PHOS 6.4 (H) 12/09/2014 BUN 8 06/05/2020 BUN 40 (H) 12/09/2014 CREATININE 0.72 06/05/2020 CREATININE 5.50 (H) 12/09/2014 No results found for: GLU Lab Results Component Value Date CALCIUM 7.8 (L) 06/05/2020 CALCIUM 8.4 12/09/2014 PHOS 6.4 (H) 12/09/2014 Lab Results Component Value Date MG 1.8 06/05/2020 MG 1.5 (L) 10/04/2013 Lab Results Component Value Date BILITOT 1.0 05/25/2015 BILITOT Negative 05/07/2014 BILIDIR 0.2 04/08/2015 BILIDIR 0.1 09/29/2013 AST 8 05/25/2015 AST 10 09/29/2013 ALT 17 05/25/2015 ALT 11 09/29/2013 ALKPHOS 122 05/25/2015 ALKPHOS 47 09/29/2013 No components found for: ESR Lab Results Component Value Date CRP 0.6 05/07/2014 No results found for: PREALBUMIN IMAGING: CT showed no deep infection Microbiology history of MRSA. IMPRESSION and PLAN: Pt is a 45 y.o. female with abscess, cellulitis, as above. I gave her instructions for care going forward. When her overall condition allows, I recommend discharge, with a MRSA effective oral, such and doxycycline. I will follow outpatient, as needed. Thank you for consulting me. If there are any questions, please call. [phone]. * Nikko Wasserman, PT - 06/04/2020 4:00 PM EST Physical Therapy PHYSICAL THERAPY EVALUATION NOTE Skilled Therapy Needs After Discharge Anticipate Resolution of Current Assessment Limitations Including: Pain, Mechanical Barriers Are Skilled Therapy Services Needed After Discharge: Yes Intensity of Skilled Therapy: Up to 5 days per week Anticipated Duration of Skilled Therapy: Duration 7 - 10 days DME Recommendation: (post op shoe for improved stability to promote wound healing) Rehab Potential: Good Outcomes Measures Prior Function - Basic Mobility % Impaired: AM-PAC - Basic Mobility Raw Score: AM-PAC - Basic Mobility % Impaired: Physical Therapy Assessment History: The following factors influence the patient's participation in the PT plan of care: The following co-morbidities (from this admission or prior) influence the patient's participation in this plan of care: Number of History elements affecting this patient's PT plan of care: Examination of Body Systems: The patient presents with: . These impairments result in limitations of . These impairments result in restrictions of . Number of Body Systems elements affecting this patient's PT plan of care: . Clinical Presentation: The patient's clinical presentation for this PT evaluation is as evidenced by current PT documentation. Activity Tolerance Therapy Precautions Orthotic Devices: No Weight Bearing Status: X LLE: (partial weight bearing, None through toe) Balance Bed Mobility Transfers Gait/Locomotion Exercise Home Living Type of Home: House Home Layout: One level Prior Level of Function Level of Liberty: Independent with ADLs and functional transfers, Independent with homemaking with ambulation Lives With: Significant other, Family, Daughter Past Medical History: Diagnosis Date Anxiety Bipolar 1 disorder (HCC) Bipolar disorder (HCC) Chronic back pain Coronary artery disease Depression Diabetes mellitus (HCC) Hypertension MRSA (methicillin resistant Staphylococcus aureus) Pacemaker Seizures (HCC) Stroke (HCC) Past Surgical History: Procedure Laterality Date CHOLECYSTECTOMY FOOT SURGERY HYSTERECTOMY ORTHOPEDIC SURGERY left foot surgery PACEMAKER INSERTION For complete objective data, detailed plan of care and patient education refer to: PT EVALUATION flow sheet, PT TREATMENT flow sheet, patient Plan of Care, Plan of Care progress note, and Patient Education. This note stands as the current Discharge Summary upon patient discharge from the hospital or completion of Physical Therapy Plan of Care. * Jessica Carvalho RD - 06/04/2020 11:40 AM EST Nutrition Care Initial Assessment Reason for visit: Dietitian Screen d/t noted skin breakdown to foot reported on nutrition screen completed per nursing on admission. Nutrition Diagnosis: Increased nutrient needs related to increased demand for nutrients as evidenced by current skin breakdown. Nutrition Intervention: Continue to provide Meal and Snacks Nutrition Prescription: Diet: Diabetic Oral nutrition supplement: None at this time Tube Feeding: n/a Nutrition Goals: PO intake > 50% most meals Start Date:06/04/2020 Expected End Date:06/14/2020 Nutrition Education: Pt was very flat affect and denies questions or needs regarding diabetes management education at this time. Pt reports she has received copious amounts of education in the past prior to getting her pump and that she does do carbohydrate counting to dose her insulin pump. Did emphasize importance of maintain blood sugars in an acceptable target range to promote wound healing and pt states Oh, I know-they run good and then high when I'm at home. It just varies. Noted hgA1c this admission 10.2-worsened since 06/28/2019. 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 Spoke with office staff this am and she reports that pt was initially to see MD in May 2019-this appt was rescheduled and she saw MD for first visit on 06/28/2019. HgA1c during that visit was 9.3. Pt was started on Omnipod insulin pump with Lispro and an insulin to carb ratio of 1:15-which pt reports she is still doing. Pt was to be seen in office for f/u in September 2019 but that appt was cancelled by pt and pt has notbeen seen by machine shop worker in almost 1 year. MD did refill pt's omnipod on 04/09/20, Lipso was also refilled on 12/01/19. Pt also to be on Metformin. Office staff reports it is vital for her to continue to see Dr Resendez that she make and keep a follow up appt. If transportation is a barrier staff reports MD will on occasion set up telemed visit for pt. Assessment: Pertinent clinical information: Pt admitted for diabetic foot infection, T2DM. Past Medical History: Diagnosis Date Anxiety Bipolar 1 disorder (HCC) Bipolar disorder (HCC) Chronic back pain Coronary artery disease Depression Diabetes mellitus (HCC) Hypertension MRSA (methicillin resistant Staphylococcus aureus) Pacemaker Seizures (HCC) Stroke (HCC) Height: 5' 2 Current weight: 119.7 kg (264 lb) BMI Body mass index is 48.29 kg/m . Weight hx: Weights reviewed per chart d/t pt unaware of wt changes. Noted pt with potential wt gainof 64# in past 3 years which is not beneficial for diabetes and overall health management. Wt Readings from Last 5 Encounters: 06/03/20 119.7 kg (264 lb) 06/26/17 90.7 kg (200 lb) 05/25/15 88.5 kg (195 lb) 05/01/15 81.6 kg (180 lb) 04/08/15 86.2 kg (190 lb) Current diet order: Diabetic Recent intake: Noted pt did not eat breakfast of orange and toast this am and reports she just did not care for it. Noted po intake of 75-100% on nights. Current intake Likely meets estimated needs most of the time. Patient/family comments: Pt reports she typically has a good appetite and refused any nutrition interventions or needs at this time. Difficulty Chewing/Swallowing: No Skin Integrity: Diabetic ulcer to left great toe. GI Function: Hypoactive BS. Physical Appearance: no signs or symptoms of malnutrition Labs: Recent Labs 06/04/20 0557 NA 144 K 3.7 BICARB 22 CL 115* GLUCOSE 107* BUN 14 CREATININE 0.90 MG 1.6 Scheduled Meds: atorvastatin 20 mg Oral Nightly budesonide-formoteroL 2 puff Inhalation BID busPIRone 15 mg Oral BID ceFAZolin (ANCEF) IVPB 2,000 mg Intravenous Q8H divalproex 500 mg Oral Q12H SAMEER docusate sodium 100 mg Oral Daily doxycycline 100 mg Oral Q12H enoxaparin (LOVENOX) injection 40 mg Subcutaneous BID levETIRAcetam 500 mg Oral BID metoprolol tartrate 12.5 mg Oral BID pantoprazole 40 mg Oral BID pregabalin 150 mg Oral at bedtime Continuous Infusions: sodium chloride 0.9 % Stopped (06/03/20 9253) sodium chloride 0.9 % 100 mL/hr (06/04/20 1128) Will continue to monitor and follow clinical course for change in condition. Follow up as needed. Jessica Carvalho RD, LD documented in this encounter Chief Complaint and Reason for Visit Chief Complaint L foot pain Reason for Visit Diabetic foot infect ion Hypertension Hypokalemia Hypomagnesemia Chief Complaint L foot pain Reason for Visit Abscess of toenail o n left foot Cellulitis of left foot [id number] Diabetic foot infection Hypertension Hypokalemia Hypomagnesemia Hypophosphatemia Onychocryptosis Peripheral vascular disease Toe infection Toe pain, left Diabetes Nicotine dependence Chief Complaint L foot pain PAD w/left great toe ulcer Reason for Visit Abscess of toenail o n left foot Cellulitis of left foot [id number] Diabetic foot infection Hypertension Hypokalemia Hypomagnesemia Hypophosphatemia Onychocryptosis Peripheral vascular disease Toe infection Toe pain, left Diabetes Nicotine dependence Chief Complaint Admit Date FINGER LAC August 29, 2024 1:44 pm Reason for Referral Specialty Diagnoses / Procedures Referred By Contac t Referred To Contact Neurology Diagnoses Chronic nonintractable headache, unspecified headache type Stephany Pelayo PA-C [address] [address] Virgen Campos MD [address] [address] Referral ID Status Reason Start Date Expiration Date V isits Requested Visits Authorized [id number] Authorized 02/11/2024 02/10/2025 1 1 Specialty Diagnoses / Procedures Referred By Contac t Referred To Contact Diagnoses Chronic obstructive pulmonary disease, unspecified COPD type (HCC) Stephany Pelayo PA-C [address] [address] Referral ID Status Reason Start Date Expiration Date Visits Re quested Visits Authorized [id number] Closed 1 1 Specialty Diagnoses / Procedures Referred By Contac t Referred To Contact Rehabilitation Diagnoses Chronic pain syndrome DDD (degenerative disc disease), lumbar Lumbar radiculopathy Jim Velez, DO [address] [place] [address] Referral ID Status Reason Start Date Expiration Date V isits Requested Visits Authorized [id number] Authorized 12/08/2023 12/07/2024 1 1 Specialty Diagnoses / Procedures Referred By Contac t Referred To Contact Diagnoses Type 2 diabetes mellitus with diabetic polyneuropathy, with long-term current use of insulin (HCC) Sahara Sanchez MD [address] [place] [address] Referral ID Status Reason Start Date Expiration Date V isits Requested Visits Authorized [id number] Pending Review 1 1 Specialty Diagnoses / Procedures Referred By Contac t Referred To Contact Diagnoses Lacunar stroke (HCC) Procedures Thrombotic Risk Screen Virgen Campos MD [address] Jarod [address] [place] [address] Referral ID Status Reason Start Date Expiration Date V isits Requested Visits Authorized [id number] Pending Review 09/16/2023 09/15/2024 1 1 Specialty Diagnoses / Procedures Referred By Contac t Referred To Contact Otolaryngology Diagnoses Hearing loss of left ear, unspecified hearing loss type Virgen Campos MD [address] Jar[address] [place] [address] Map Ent [place] [address] [address] Referral ID Status Reason Start Date Expiration Date Visits Requested Visits Authorized [id number] Authorized Specialty Services Required/Pat winternt's Best Interest 09/16/2023 09/15/2024 1 1 Specialty Diagnoses / Procedures Referred By Contac t Referred To Contact Neurology Diagnoses Seizure (HCC) Procedures EEG (Standard) Virgen Campos MD [address] [address] Referral ID Status Reason Start Date Expiration Date V isits Requested Visits Authorized [id number] Pending Review 09/16/2023 09/15/2024 1 1 Specialty Diagnoses / Procedures Referred By Contac t Referred To Contact Pulmonary Disease Diagnoses Subacute cough Family history of pulmonary fibrosis Stephany Pelayo PA-C [address] [address] Neida Dominguez MD [address] [place] [address] Referral ID Status Reason Start Date Expiration Date Visits Requested Visits Authorized [id number] Authorized Patient Preference 10/29/2023 10/28/2024 1 1 Specialty Diagnoses / Procedures Referred By Contac t Referred To Contact Radiology Diagnoses RUQ abdominal pain Procedures US Abdomen Complete Stephany Pelayo PA-C [address] [place] [address] Central Scheduling [address] [place] [id number] Referral ID Status Reason Start Date Expiration Date V isits Requested Visits Authorized [id number] Authorized 10/13/2023 10/12/2024 1 1 Specialty Diagnoses / Procedures Referred By Contac t Referred To Contact Pulmonology Diagnoses Subacute cough Family history of pulmonary fibrosis Stephany Pelayo PA-C [address] [address] Merrick Almanza MD [address] [place] [address] Referral ID Status Reason Start Date Expiration Date Visits Re quested Visits Authorized [id number] Closed 10/13/2023 10/12/2024 1 1 Specialty Diagnoses / Procedures Referred By Contac t Referred To Contact Urology Diagnoses Incontinence in female Harris Bhat MD [address] [address] Map Urology [address] [address] Referral ID Status Reason Start Date Expiration Date V isits Requested Visits Authorized [id number] Authorized 06/22/2023 06/21/2024 1 1 Specialty Diagnoses / Procedures Referred By Contac t Referred To Contact Home Health Services Diagnoses Diabetic ulcer of right foot associated with type 2 diabetes mellitus, unspecified part of foot, unspecified ulcer stage (HCC) Left-sided weakness Visual loss, left eye Stephany Pelayo PA-C [address] [place] [address] Referral ID Status Reason Start Date Expiration Date Visits Requested Visits Authorized [id number] Pending Review Patient Preference 3 05/14/2024 1 1 Specialty Diagnoses / Procedures Referred By Contac t Referred To Contact Home Health Services Diagnoses Generalized weakness Diabetic ulcer of right foot associated with type 2 diabetes mellitus, unspecified part of foot, unspecified ulcer stage (HCC) Muscle spasms of both lower extremities Stephany Pelayo PA-C [address] [place] [address] Referral ID Status Reason Start Date Expiration Date Visits Requested Visits Authorized [id number] Pending Review Specialty Services Required/Pat ient's Best Interest 3 05/05/2024 1 1 Specialty Diagnoses / Procedures Referred By Contac t Referred To Contact Obstetrics/Gynecology Diagnoses Screening for cervical cancer Stephany Pelayo PA-C [address] [place] [address] Timothy Banegas MD [address] [place] [address] Referral ID Status Reason Start Date Expiration Date Visits Requested Visits Authorized [id number] Closed Patient Preference 05/06/2023 05/05/2024 1 1 Specialty Diagnoses / Procedures Referred By Contac t Referred To Contact Ophthalmology Diagnoses Type 2 diabetes mellitus with diabetic polyneuropathy, with long-term current use of insulin (HCC) Stephany Pelayo PA-C [address] [place] [address] [address] Referral ID Status Reason Start Date Expiration Date V isits Requested Visits Authorized [id number] Authorized 05/06/2023 05/05/2024 1 1 Specialty Diagnoses / Procedures Referred By Contac t Referred To Contact Radiology Diagnoses Encounter for screening mammogram for malignant neoplasm of breast Procedures Mammography Screening [place] Bilateral Stephany Pelayo PA-C [address] [place] [address] Central Scheduling [address] [place] [address] Referral ID Status Reason Start Date Expiration Date V isits Requested Visits Authorized [id number] Authorized 05/06/2023 05/05/2024 1 1 Specialty Diagnoses / Procedures Referred By Contac t Referred To Contact Cardiology Diagnoses S/P placement of cardiac pacemaker Chronic chest pain Stephany Pelayo PA-C [address] [place] [address] Map [facility]io [facility] [address] [place] [address] Referral ID Status Reason Start Date Expiration Date V isits Requested Visits Authorized [id number] Authorized 05/06/2023 05/05/2024 1 1 Specialty Diagnoses / Procedures Referred By Contac t Referred To Contact Endocrinology Diagnoses Type 2 diabetes mellitus with diabetic polyneuropathy, with long-term current use of insulin (HCC) Diabetic peripheral neuropathy (HCC) Stephany Pelayo PA-C [address] [place] [address] Map Endo [facility] [address] [place] [address] Referral ID Status Reason Start Date Expiration Date V isits Requested Visits Authorized [id number] Authorized 05/06/2023 05/05/2024 1 1 Specialty Diagnoses / Procedures Referred By Contac t Referred To Contact Stephany Pelayo PA-C [address] [place] [address] Referral ID Status Reason Start Date Expiration Date Visits Re quested Visits Authorized [id number] Closed 1 1 Specialty Diagnoses / Procedures Referred By Contac t Referred To Contact Psychiatry Diagnoses Bipolar 1 disorder (HCC) Insomnia, unspecified type Stephany Pelayo PA-C [address] [facility] [address] [place] [address] Map Psych [facility] [place] [address] [facility] [address] [place] [address] Referral ID Status Reason Start Date Expiration Date V isits Requested Visits Authorized [id number] Authorized 05/06/2023 05/05/2024 1 1 Specialty Diagnoses / Procedures Referred By Contac t Referred To Contact Home Health Services Diagnoses Chest pain, moderate coronary artery risk Diabetic peripheral neuropathy (HCC) Seizure disorder (HCC) Morbid obesity (HCC) Chest pain, unspecified type Seizure (HCC) Seizures (HCC) Bipolar 1 disorder (HCC) Diabetic infection of left foot (HCC) Metabolic acidosis, normal anion gap (NAG) SOLO (acute kidney injury) (HCC) Abscess of chin Pacemaker History of MRSA infection Hypertension, unspecified type Cellulitis of chin Harshad Rizzo MD [address] [place] [address] Referral ID Status Reason Start Date Expiration Date Visits Requested Visits Authorized [id number] Authorized Patient Preference 03/31/2023 03/30/2024 1 1 Specialty Diagnoses / Procedures Referred By Contac t Referred To Contact Care Management Diagnoses Chest pain, moderate coronary artery risk Diabetic peripheral neuropathy (HCC) Seizure disorder (HCC) Morbid obesity (HCC) Harshad Rizzo MD [address] [place] [address] [facility] [address] [place] [address] Referral ID Status Reason Start Date Expiration Date V isits Requested Visits Authorized [id number] Authorized 03/30/2023 03/29/2024 1 1 Specialty Diagnoses / Procedures Referred By Contac t Referred To Contact Endocrinology Diagnoses Type 2 diabetes mellitus with other specified complication, unspecified whether retirement insulin use (HCC) Harshad Rizzo MD [address] [place] [address] Sahara Sanchez MD [address] [place] [address] Referral ID Status Reason Start Date Expiration Date Visits Requested Visits Authorized [id number] Pending Review Specialty Services Required/Pat ient's Best Interest 02/18/2023 02/18/2024 1 1 Additional Source Comments ED Notes - Rita Bland RN - 06/26/2017 9:39 PM EST[facility]auren Provider Notes - Michi San DO - 06/26/2017 8:07 PM [facility]auren Notes - Rita Bland RN - 06/26/2017 7:59 PM EST Miscellaneous Notes (unrecog nized section and content) Radiology called to ask about the status on pt's xray results. Radiology said they would call marion. Formatting of this note may be different from the original. ED PROVIDER NOTE [facility] EMERGENCY DEPARTMENT NAME: Addie Organ AGE: 42 y.o. : 1975 VISIT DATE: 06/26/2017 CSN: [id number] PCP: Cem Mario DO Clinical Impression: SNOMED CT(R) 1. Acute exacerbation of chronic low back pain CHRONIC LOW BACK PAIN Follow-up Information 1. Cem Mario DO. Specialty: Family Medicine [address] [place] [address] Contact information for after-discharge care Follow-up information has not been specified. MDM Number of Diagnoses or Management Options Acute exacerbation of chronic low back pain: Diagnosis management comments: Patient presents to the emergency department with low back pain that developed while she was stepping into her vehicle after dinner. She has no focal neuro deficits on exam. X-ray of the thoracic spine shows no acute bony abnormalities. X-ray of the lumbar spine shows no fracture or acute abnormality. Patient already has an MRI scheduled at [facility] for her back. She does have chronic back problems. At this time I feel she can be discharged home with outpatient follow- up. She has no focal neuro deficits. No incontinence. Her pain is much improved after medications here. Chief Complaint Patient presents with Shortness of Breath Patient presents to the emergency department complaint of back pain. She reports that she was eating dinner at [employer] and when she was leaving she lifted her leg up to get into the van and developed a severe low back pain that radiates up into her upper back. She notes some radiation of the pain down the left leg. She reports the pain was so severe was taking her breath away. Otherwise she denies any chest pain or trouble breathing. No nausea or vomiting. No abdominal pain. No bowel or bladder incontinence. No weakness of any extremity. She does have a history of back pain. Movement makes the pain worse and nothing makes it better. Past Medical History: Diagnosis Date Anxiety Bipolar 1 disorder (HCC) Bipolar Disorder (HCC) Chronic back pain Coronary artery disease Depression Diabetes mellitus (HCC) Hypertension MRSA (methicillin resistant Staphylococcus aureus) Pacemaker Seizures (HCC) Stroke (HCC) Past Surgical History: Procedure Laterality Date CHOLECYSTECTOMY FOOT SURGERY HYSTERECTOMY ORTHOPEDIC SURGERY left foot surgery PACEMAKER INSERTION Family History Problem Relation Age of Onset Hypertension Father Diabetes type II Father Seizures Mother Social History Social History Marital status: Spouse name: N/A Number of children: N/A Years of education: N/A Occupational History Not on file. Social History Main Topics Smoking status: Former Smoker Packs/day: 1.00 Years: 18.00 Types: Cigarettes Start date: 09/30/2014 Smokeless tobacco: Never Used Alcohol use No Drug use: No Sexual activity: Not on file Other Topics Concern Not on file Social History Narrative No narrative on file Previous Medications ARIPIPRAZOLE (ABILIFY) 10 MG TABLET Take 10 mg by mouth daily. ATORVASTATIN (LIPITOR) 20 MG TABLET Take 20 mg by mouth nightly FLUOXETINE (PROZAC) 40 MG CAPSULE Take 40 mg by mouth daily. FLUTICASONE-SALMETEROL (ADVAIR DISKUS) 250-50 MCG/DOSE DISKUS INHALER Inhale 1 puff 2 (two) times a day. INSULIN LISPRO (HUMALOG) 100 UNIT/ML INJECTION Inject under the skin 3 (three) times a day before meals Sliding Scale LANTUS 100 UNIT/ML INJECTION Inject under the skin 2 (two) times a day 55 units in the evening 60 units in the morning LEVETIRACETAM (KEPPRA) 1000 MG TABLET Take 1,000 mg by mouth 2 (two) times a day METFORMIN (GLUCOPHAGE) 1000 MG TABLET Take 1,000 mg by mouth 2 (two) times a day METOPROLOL TARTRATE (LOPRESSOR) 25 MG TABLET Take 12.5 mg by mouth 2 (two) times a day. OMEPRAZOLE (PRILOSEC) 40 MG CAPSULE Take 40 mg by mouth 2 (two) times a day. PREGABALIN (LYRICA) 100 MG CAPSULE Take 100 mg by mouth 3 (three) times a day. ZOLPIDEM (AMBIEN CR) 6.25 MG CR TABLET Take 6.25 mg by mouth nightly as needed for sleep. Allergies Allergen Reactions Codeine Ketorolac Latex Dermatitis Propoxyphene N-Acetaminophen Tramadol Review of Systems Constitutional: Negative for chills and fever. Respiratory: Negative for cough, shortness of breath and wheezing. Cardiovascular: Negative for chest pain, palpitations and leg swelling. Gastrointestinal: Negative for abdominal pain, diarrhea, nausea and vomiting. Genitourinary: Negative for dysuria. No bowel or bladder incontinence Musculoskeletal: Positive for back pain. Negative for neck pain. Skin: Negative for rash. Neurological: Negative for dizziness, syncope, weakness, light-headedness, numbness and headaches. All other systems reviewed and are negative. Positives and pertinent negatives as per HPI. All other systems were reviewed and are negative. Patient Vitals for the past 24 hrs: BP Temp Pulse Resp SpO2 Height Weight 06/26/177 (!) 122/105 - 91 17 100 % - - 06/26/172102 (!) 128/109 - 88 17 99 % - - 06/26/171999 (!) 145/79 - 94 16 99 % - - 06/26/17 191 (!) 144/99 - 96 16 99 % - - 06/26/17 183 (!) 155/116 98.4 F (36.9 C ) (!) 106 - - 5' 2 90.7 kg (200 lb) 06/26/17 183 - - (!) 103 18 96 % - - Physical Exam Constitutional: She is oriented to person, place, and time. She appears well-developed and well-nourished. No distress. HENT: Head: Normocephalic and atraumatic. Nose: Nose normal. Mouth/Throat: Oropharynx is clear and moist. Eyes: Conjunctivae and EOM are normal. Neck: No tenderness Cardiovascular: Normal rate, regular rhythm, normal heart sounds and intact distal pulses. Pulmonary/Chest: Effort normal and breath sounds normal. No respiratory distress. She has no wheezes. Abdominal: Soft. Bowel sounds are normal. She exhibits no distension. There is no tenderness. There is no rebound and no guarding. Musculoskeletal: Normal range of motion. She exhibits tenderness. She exhibits no edema or deformity. Tenderness to palpation to the low back, decreased ROM, pain with ROM of the legs bilaterally, good DP pulses bilaterally Neurological: She is alert and oriented to person, place, and time. She has normal strength. No cranial nerve deficit or sensory deficit. GCS eye subscore is 4. GCS verbal subscore is 5. GCS motor subscore is 6. 5/5 strength of all extremities Skin: Skin is warm and dry. No rash noted. No erythema. Nursing note and vitals reviewed. Laboratory & Radiographic Imaging (if done): No results found for this visit on 06/26/17. XR Thoracic Spine 3 Views (Standard) Final Result No acute bony abnormalities. [facility]/fruux Workstation ID: [id number] XR Lumbar Spine 2-3 Views (Standard) (Results Pending) Procedures . New Prescriptions CYCLOBENZAPRINE (FLEXERIL) 10 MG TABLET Take 1 (one) tablet (10 mg total) by mouth 3 (three) times a day as needed for muscle spasms. Michi San DO, FACEP Attending Physician [facility] Emergency Department Michi Muellerlela San DO 06/26/17 8705 Pt back from radiology Pt to radiology Report received from JAEL Franks. Pt resting on cot, texting. Pt tearful, states that her pain is 10/10 between her shoulders and down her back. Denies needs at this time, call light within reach. Report given to: Rita ELDER Pt states she was at [employer] eating and then upon leaving went to get into her van and lifted up her left leg to get into the van and felt severe pain in her mid lower back that is radiating down her left leg and she became short of breath when the pain hit. No resp distress upon arrival to the ED. Pt reports she has a hx of herniated discs in her back. Bed: 11 Expected date: Expected time: Means of arrival: Comments: 104in this encounter Dr hendrickson at bedside for Left great toe procedure. Triple atb ointment and gauze applied to wound and secured with coban. Pt was on her phone during procedure and tolerated it well. This RN was notified by pharmacist that [facility] does not carry vraylar and could the patient have her home vraylar brought to the hospital. Pt states that her boyfriend will bring that medication today. Pt gave herself 15.25units for FSBS 134 Associated Problem(s): Seizures (HCC) Continue home keppra, depakote Associated Problem(s): Bipolar 1 disorder (HCC) No evidence of denys at this time Continue home seroquel, buspar, vraylar Associated Problem(s): Hypertension Continue home lopressor Associated Problem(s): Diabetes mellitus type II, uncontrolled (HCC) A1c 10.2% On insulin pump Associated Problem(s): Diabetic infection of left foot (HCC) Cellulitis present, but given eschar concern for OM. CT shows no evidence of OM, but will consider MRI as outpatient Reported Hx of MRSA, reported vancomycin intolerance due to renal problems Podiatry consulted, drained abscess and sent wound culture (pending results) PT consulted, patient given postop shoe S/p cefazolin, transitioned to doxycycline PO for discharge Morphine transitioned to Percocet x 5 day PRN Patient's boyfriend dropped off her laptop and was given her credit card. Problem: Actual or potential alteration in health Goal: Absence of healthcare acquired conditions Outcome: Partially Met Goal: Knowledge of Interdisciplinary Plan of Care Outcome: Partially Met Goal: Knowledge of Enviroment Outcome: Partially Met Problem: Pain Goal: Manage acute pain Outcome: Partially Met Goal: Manage chronic pain Outcome: Partially Met Goal: Reduced pain sensation Outcome: Partially Met Goal: Achievement of comfort function goal Outcome: Partially Met documented in this encounter INFORMATION SOURCE (unrecogn ized section and content) DATE CREATED AUTHOR 11/12/2017 [facility] DATE CREATED AUTHOR AUTHOR'S ORGANIZ ATION 11/13/2017 [facility] DATE CREATED AUTHOR AUTHOR'S ORGANIZ ATION 07/13/2018 [facility] DATE CREATED AUTHOR AUTHOR'S ORGANIZ ATION 04/12/2019 [facility] DATE CREATED AUTHOR AUTHOR'S ORGANIZ ATION 08/22/2019 [facility] DATE CREATED AUTHOR AUTHOR'S ORGANIZ ATION 12/12/2021 [facility] DATE CREATED AUTHOR AUTHOR'S ORGANIZ ATION 09/18/2022 [facility] DATE CREATED AUTHOR AUTHOR'S ORGANIZ ATION 10/08/2022 [facility] DATE CREATED AUTHOR AUTHOR'S ORGANIZ ATION 11/05/2022 [facility] DATE CREATED AUTHOR AUTHOR'S ORGANIZ ATION 02/26/2023 [facility] DATE CREATED AUTHOR AUTHOR'S ORGANIZ ATION 04/01/2023 [facility] DATE CREATED AUTHOR AUTHOR'S ORGANIZ ATION 05/22/2023 [facility] DATE CREATED AUTHOR AUTHOR'S ORGANIZ ATION 10/29/2023 [facility] DATE CREATED AUTHOR AUTHOR'S ORGANIZ ATION 11/11/2023 [facility] DATE CREATED AUTHOR AUTHOR'S ORGANIZ ATION 03/26/2024 [facility] DATE CREATED AUTHOR AUTHOR'S ORGANIZ ATION 07/06/2024 [facility] DATE CREATED AUTHOR AUTHOR'S ORGANIZ ATION 08/05/2024 [facility] DATE CREATED AUTHOR AUTHOR'S ORGANIZ ATION 09/04/2024 [facility] DATE CREATED AUTHOR AUTHOR'S ORGANIZ ATION 09/27/2024 [facility] DATE CREATED AUTHOR AUTHOR'S ORGANIZ ATION 09/30/2024 [facility] Reason for Visit (unrecogniz ed section and content) Reason Comments Weakness Specialty Diagnoses / Procedures Referred By Contac t Referred To Contact Referral ID Status Reason Start Date Expiration Date Visits Re quested Visits Authorized [id number] 1 1 Reason Comments Diabetes Reason Comments Wound Infection Status Reason Specialty Diagnoses / Procedures Referre d By Contact Referred To Contact Diagnoses Diabetic foot infection (HCC) Type 2 diabetes mellitus with left diabetic foot infection (HCC) Diabetic infection of left foot (HCC) Reason Comments Seizures 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 Reason Comments Chart Transfer from [place] for MRI Reason Comments Pain NEW PATIENTRT KNEE P AIN, fell 01/19/23 went to [facility] Reason Comments Chest Pain Specialty Diagnoses / Procedures Referred By Contac t Referred To Contact Diagnoses Flank pain Chest pain, unspecified type Referral ID Status Reason Start Date Expiration Date Visits Re quested Visits Authorized [id number] 1 1 Reason Comments Chest Pain Specialty Diagnoses / Procedures Referred By Contac t Referred To Contact Diagnoses Chest pain Chest pain, moderate coronary artery risk Referral ID Status Reason Start Date Expiration Date Visits Re quested Visits Authorized [id number] 1 1 Specialty Diagnoses / Procedures Referred By Contac t Referred To Contact Reason Comments Establish Care Gap Closure (Health Maintenance) Flu, pn eum[place], diabetic eye Reason Onset Date Comments Care Management Referral 05/14/2023 Financi al Resources Reason Onset Date Comments Transition Of Care 05/15/2023 Reason Onset Date Comments hosp bed 05/15/2023 Reason Comments Transition Of Care Reason Onset Date Comments Medication Refill 06/22/2023 Reason Comments Acute Visit Specialty Diagnoses / Procedures Referred By Contac t Referred To Contact Psychiatry Diagnoses Bipolar 1 disorder (HCC) Insomnia, unspecified type Stephany Pelayo PA-[place] [place] [address] [facility] [place] [address] [place] [address] Referral ID Status Reason Start Date Expiration Date Visits Re quested Visits Authorized [id number] Closed 05/06/2023 05/05/2024 1 1 Reason Onset Date Comments Medication Refill 08/11/2023 Reason Comments Fall Leg Pain Reason Onset Date Comments Medication Refill 09/07/2023 Reason Comments Follow-up Reason Onset Date Comments DME 09/10/2023 Reason Onset Date Comments Medication Refill 10/06/2023 Reason Comments Follow-up Bipolar 1/ anxiety/ PTSD/ insomnia- Patient compliant with medications. Patient states they are not helpful. Patients anxiety is high, not sleeping (lays awake thinking when will I how will I how will my kids feel ) Cannot shake the feeling, overwhelming thoughts of . Recently lost her mother Reason Comments Follow-up 1 mo Reason Comments Decreased Vision Spots and/or Floaters Eye Pain Specialty Diagnoses / Procedures Referred By Richa ruff Referred To Contact Ophthalmology Diagnoses Vitreous hemorrhage of left eye Diabetic retinopathy associated with type 2 diabetes mellitus, macular edema presence unspecified, unspecified laterality, unspecified retinopathy severity Jessica Puentes MD [address] [place] [address] [facility] [address] [place] [address] Referral ID Status Reason Start Date Expiration Date V isits Requested Visits Authorized [id number] New Request 11/09/2023 12/03/2024 1 1 Reason Onset Date Comments Medication Refill 11/12/2023 Reason Comments Establish Care seizures Specialty Diagnoses / Procedures Referred By Richa ruff Referred To Contact Neurology Diagnoses Seizures (HCC) Fab Head MD [address] [facility] [address] [place] [address] Virgen Campos MD [address] [facility] [address] [place] [address] Referral ID Status Reason Start Date Expiration Date V isits Requested Visits Authorized [id number] Pending Review 01/14/2023 01/15/2024 1 1 Reason Onset Date Comments Medication Refill 12/02/2023 Reason Comments Med Change Request Reason Comments Diabetes Mellitus Gap Closure (Health Maintenance) There a re no preventive care reminders to display for this patient. Specialty Diagnoses / Procedures Referred By Richa t Referred To Contact Endocrinology Diagnoses Type 2 diabetes mellitus with diabetic polyneuropathy, with long-term current use of insulin (HCC) Diabetic peripheral neuropathy (HCC) Stephany Pelayo PA-C [facility] [address] [address] [facility] [address] [place] [address] Referral ID Status Reason Start Date Expiration Date Visits Re quested Visits Authorized [id number] Closed 05/06/2023 05/05/2024 1 1 Reason Onset Date Comments Medication Refill 12/07/2023 Reason Comments Pain VAS= 9/10 ANIA CONSENT YES Back Pain Thoracic to lumbar p ain Specialty Diagnoses / Procedures Referred By Richa t Referred To Contact Pain Medicine Diagnoses Chronic pain syndrome Muscle spasms of both lower extremities Stephany Pelayo PA-C [address] [address] [facility] [address] [place] [address] Referral ID Status Reason Start Date Expiration Date Visits Re quested Visits Authorized [id number] Closed 09/03/2023 09/02/2024 1 1 Reason Onset Date Comments Medication Refill 12/08/2023 Reason Comments Acute Visit Cough, sore throat x 1 week Reason Onset Date Comments nebulizer supplies 12/14/2023 Reason Onset Date Comments Medication Refill 12/21/2023 Reason Onset Date Comments Medication Refill 01/11/2024 Reason Comments Toe Injury Wound Check Specialty Diagnoses / Procedures Referred By Richa t Referred To Contact Diagnoses Diabetic ulcer of left great toe (HCC) Diabetic ulcer of toe of left foot associated with type 2 diabetes mellitus, limited to breakdown of skin (HCC) Referral ID Status Reason Start Date Expiration Date Visits Re quested Visits Authorized [id number] 1 1 Reason Onset Date Comments Care Management Referral 01/27/2024 Food In security, Housing Resources Reason Comments Follow-up Hosp follow up-left big toe Reason Onset Date Comments Medication Refill 01/27/2024 Reason Onset Date Comments Medication Refill 02/03/2024 Reason Comments Toe Pain Left great toe infec tion since Thursday-pain, drainage Reason Comments Follow-up Pain VAS = 9/10 Back Pain Lumbar pain Reason Comments Follow-up Check b12 level, sup plies for toeHeartburn worse-can we increase med dose Reason Onset Date Comments Medication Refill 03/08/2024 Reason Comments Follow-up 4 week f/u Abdominal Cramping For a couple of week s, diarrhea for 1 week Reason Onset Date Comments Medication Refill 03/22/2024 Reason Onset Date Comments [facility] 03/30/2024 Reason Comments Toe Pain Specialty Diagnoses / Procedures Referred By Contac t Referred To Contact Diagnoses Elevated troponin SIRS (systemic inflammatory response syndrome) (HCC) Toe osteomyelitis (HCC) Diabetes mellitus due to underlying condition with hyperglycemia, with long-term current use of insulin (HCC) Osteomyelitis of great toe (HCC) Referral ID Status Reason Start Date Expiration Date Visits Re quested Visits Authorized [id number] 1 1 Reason Onset Date Comments Medication Refill 04/12/2024 Reason Onset Date Comments Medication Refill 04/28/2024 Reason Comments Post-op Problem Toe Pain Specialty Diagnoses / Procedures Referred By Contac t Referred To Contact Diagnoses Diabetic foot infection (HCC) Postoperative infection, unspecified type, initial encounter Referral ID Status Reason Start Date Expiration Date Visits Re quested Visits Authorized [id number] 1 1 Reason Comments Pain VAS 8/10 Follow-up Foot Pain Reason Onset Date Comments Medication Refill 05/27/2024 Reason Onset Date Comments incontinence supplies 06/06/2024 Reason Onset Date Comments Medication Refill 06/10/2024 Reason Comments Foot Ulcer LT foot ulcers Reason Comments Acute Visit F2F for shower chair Reason Onset Date Comments shower chair 07/21/2024 Reason Onset Date Comments Medication Refill 07/12/2024 Reason Onset Date Comments Pulse ox 08/04/2024 Reason Comments Follow-up Would like miralax a nd zinc oxide cream Reason Onset Date Comments Medication Refill 08/18/2024 Reason Comments Pain Follow-up Leg Pain Foot Pain Vas 10/10 Reason Onset Date Comments Zynex 09/29/2024 Bridger Garner MD - 06/04/2020 1:07 PM EST H&P Notes (unrecognized sect ion and content) HISTORY AND PHYSICAL Patient Name: Addie Jean Baptiste Admit Date: [id number] MR #: [id number] : 1975 Physicians: Provider Not in System (Family); No ref. provider found (Referring) Chief Complaint/Reason for Visit: L foot pain Assessment and Plan: * Diabetic infection of left foot (HCC) Assessment & Plan Cellulitis present, but given eschar concern for OM. CT shows no evidence of OM, but will consider MRI Reported Hx of MRSA, reported vancomycin intolerance due to renal problems Xray foot ordered Continue cefazolin for possible OM, doxycycline for cellulitis and empiric MRSA coverage Podiatry or surgical consult depending on who is available at this facility Pt reports opioid intolerance, discontinue oxycodone and increased pregabalin, will consider morphine for breakthrough pain PT/OT Hibiclens Lactate elevated, will monitor Seizures ([facility]) Assessment & Plan Continue home keppra, depakote Bipolar 1 disorder ([facility]) Assessment & Plan No evidence of denys at this time Continue home seroquel, buspar, vraylar Hypertension Assessment & Plan Continue home lopressor Diabetes mellitus type II, uncontrolled ([facility]) Assessment & Plan A1c 10.2% On insulin pump History of Present Illness: Addie Jean Baptiste is a 45 y.o. female w PMH of DM, pacemaker, seizures, MRSA presenting from home with c/o pain in L great toe. Patient reports pain x5 days with swelling, denies discharge. Patient reports prior hx of MRSA as well as Hx of L foot surgery. Uses insulin pump at home. Denies chest pain or palpitations. History: Past Medical History: Diagnosis Date Anxiety Bipolar 1 disorder (HCC) Bipolar disorder (HCC) Chronic back pain Coronary artery disease Depression Diabetes mellitus (HCC) Hypertension MRSA (methicillin resistant Staphylococcus aureus) Pacemaker Seizures (HCC) Stroke (HCC) Past Surgical History: Procedure Laterality Date CHOLECYSTECTOMY FOOT SURGERY HYSTERECTOMY ORTHOPEDIC SURGERY left foot surgery PACEMAKER INSERTION Family History Problem Relation Age of Onset Hypertension Father Diabetes type II Father Seizures Mother Social History Socioeconomic History Marital status: Spouse name: Not on file Number of children: Not on file Years of education: Not on file Highest education level: Not on file Occupational History Not on file Social Needs Financial resource strain: Not on file Food insecurity Worry: Not on file Inability: Not on file Transportation needs Medical: Not on file Non-medical: Not on file Tobacco Use Smoking status: Former Smoker Packs/day: 1.00 Years: 18.00 Pack years: 18.00 Types: Cigarettes Start date: 09/30/2014 Smokeless tobacco: Never Used Substance and Sexual Activity Alcohol use: No Alcohol/week: 0.0 standard drinks Drug use: No Sexual activity: Not on file Lifestyle Physical activity Days per week: Not on file Minutes per session: Not on file Stress: Not on file Relationships Social connections Talks on phone: Not on file Gets together: Not on file Attends hinduism service: Not on file Active member of club or organization: Not on file Attends meetings of clubs or organizations: Not on file Relationship status: Not on file Other Topics Concern Not on file Social History Narrative Not on file Living Arrangements: Alone Support Systems: Spouse/significant other, Children, Parent Allergy Information: I have reviewed the patient's allergies. Ketorolac, Tramadol, Codeine, Propoxyphene n-acetaminophen, Adhesive, Ct: iodinated contrast- oral and iv dye, Fentanyl, Ibuprofen, Latex, Nsaids (non-steroidal anti-inflammatory drug), Vancomycin, and Propoxyphene Home Medications: Outpatient Medications as of 06/04/2020 Medication Sig atorvastatin (LIPITOR) 20 MG tablet Take 20 mg by mouth nightly busPIRone (BUSPAR) 15 MG tablet 15 mg 2 (two) times a day States takes for 1 more week then goes to higher dose . divalproex (DEPAKOTE) 500 MG delayed release (DR) tablet Take 500 mg by mouth 2 (two) times a day . levothyroxine (SYNTHROID, LEVOTHROID) 75 MCG tablet 75 mcg . omeprazole (PRILOSEC) 40 MG capsule Take 40 mg by mouth 2 (two) times a day. pregabalin (LYRICA) 150 MG capsule Take 150 mg by mouth nightly States takes at 2030 at home every night . QUEtiapine (SEROQUEL) 400 MG tablet 800 mg nightly . ARIPiprazole (ABILIFY) 10 MG tablet Take 10 mg by mouth daily. busPIRone (BUSPAR) 30 MG tablet 30 mg 2 (two) times a day Starts this when done with 15 mg doses x 1 more week . cyclobenzaprine (FLEXERIL) 10 MG tablet Take 1 (one) tablet (10 mg total) by mouth 3 (three) times a day as needed for muscle spasms. Emgality Pen 120 mg/mL Pen every 30 (thirty) days For headaches, had 04/2020; states need to pick it up tomorrow at pharmacy - [facility] in [place] . FLUoxetine (PROZAC) 40 MG capsule Take 40 mg by mouth daily. fluticasone-salmeterol (ADVAIR DISKUS) 250-50 mcg/dose diskus inhaler Inhale 1 puff 2 (two) times a day. hydrOXYzine (ATARAX) 25 MG tablet 25 mg as needed States forgets how many times per day can use--as needed per patient . insulin lispro (HumaLOG) 100 unit/mL injection Inject under the skin 3 (three) times a day before meals Sliding Scale LANTUS 100 unit/mL injection Inject under the skin 2 (two) times a day 55 units in the evening 60 units in the morning levETIRAcetam (KEPPRA) 500 MG tablet Take 500 mg by mouth 2 (two) times a day . metFORMIN (GLUCOPHAGE) 1000 MG tablet Take 1,000 mg by mouth 2 (two) times a day metoprolol tartrate (LOPRESSOR) 25 MG tablet Take 12.5 mg by mouth 2 (two) times a day. Omnipod Insulin Refill Crtg potassium chloride 20 mEq TbER 20 mEq . tiZANidine (ZANAFLEX) 2 MG tablet Vraylar 6 mg cap Take 1 capsule by mouth daily . zolpidem (AMBIEN CR) 6.25 MG CR tablet Take 6.25 mg by mouth nightly as needed for sleep. Review of Systems: The following system(s) were reviewed and pertinent findings noted: Constitutional:No fever, no weight loss Eyes:No diplopia, no blurry vision ENT:No sinus drainage, no hearing loss, no sore throat CV:No chest pain. No ankle swelling Resp:No dyspnea. No wheezing GI:No abdominal pain.No abdominal distention, no melana or hematachezia :No dysuria, no hematuria, no frequency Neuro:No headache, no falling, no ataxia Integumentary:Swelling of skin on L great toe, tender, no pruritis MuscSkel:No arthralgias, no myalgia Endo:No polyuria, no fatigue Allergic/Immunologic:No hives Physical Examination: Vital Signs: BP (!) 113/93 Pulse 67 Temp 97.7 F (36.5 C) (Oral) Resp 16 Ht 5' 2 Wt 119.7 kg (264 lb) SpO2 99% BMI 48.29 kg/m Physical Exam: - GENERAL: Adult female, obese, no acute distress. Well-nourished. - EYES: EOMI. Anicteric. - HENT: Moist mucous membranes. No cervical lymphadenopathy appreciated - LUNGS: Clear to auscultation bilaterally. No accessory muscle use.? No ronchi, rales, or wheezes appreciated - CARDIOVASCULAR: Regular rate and rhythm. S1 and S2 present. No murmurs or rubs appreciated. - ABDOMEN: Soft, non-tender and non-distended. - EXTREMITIES: Exquisite tenderness of L great toe at DIP. - SKIN: Diffuse erythema of L great toe at DIP on dorsum and plantar surfaces, eschar over distal tip to nail. Warm. - NEUROLOGIC: No focal neurological deficits. CN II-XII grossly intact - PSYCHIATRIC: Cooperative. Appropriate mood and affect. Laboratory and Additional Data Reviewed: Laboratory 06/04/20 1:11 PM Medications 06/04/20 1:11 PM :Assessment Detail: The total time spent for this visit was 40 minutes. Greater than 50% of the time was spent in counseling and coordination of care regarding L toe infection. documented in this encounter Mikel Hall RN - 06/03/2020 4:26 PM Mikel Bentley RN - 06/03/2020 3:51 PM Ko Hager MD - 06/03/2020 3:17 PM Mikel Bentley RN - 06/03/2020 3:04 PM EST ED Notes (unrecognized secti on and content) 3N updated, 316 room assigned. 3N called, medsurg bed assignment will be made after covid status. Report given to JAEL Landaverde. All questions answered to the best of this rn ability, report accepted. Associated Order(s): Critical Care ED PROVIDER NOTE [facility] EM[facility]GENCY DE[facility]MENT NAME: Addie Jean Baptiste AGE: 45 y.o. : 1975 VISIT DATE: 06/03/2020 CSN: [id number] PCP: Provider Not in System Chief Complaint Patient presents with Wound Infection For the past week her left first toe has been inflamed. Two days ago she became aware of some serous drainage from her toe. On 06/02/2020 she was seen at [facility], and was started on Keflex at that time. Her toe is not any better. It still hurts. Her blood sugar tends to be poorly-controlled, even though she has an insulin pump. She has not been aware of any fever. She is still eating normally. History provided by: Patient Past Medical History: Diagnosis Date Anxiety Bipolar 1 disorder (HCC) Bipolar disorder (HCC) Chronic back pain Coronary artery disease Depression Diabetes mellitus (HCC) Hypertension MRSA (methicillin resistant Staphylococcus aureus) Pacemaker Seizures (HCC) Stroke (HCC) Past Surgical History: Procedure Laterality Date CHOLECYSTECTOMY FOOT SURGERY HYSTERECTOMY ORTHOPEDIC SURGERY left foot surgery PACEMAKER INSERTION Family History Problem Relation Age of Onset Hypertension Father Diabetes type II Father Seizures Mother Social History Socioeconomic History Marital status: Spouse name: Not on file Number of children: Not on file Years of education: Not on file Highest education level: Not on file Occupational History Not on file Social Needs Financial resource strain: Not on file Food insecurity Worry: Not on file Inability: Not on file Transportation needs Medical: Not on file Non-medical: Not on file Tobacco Use Smoking status: Former Smoker Packs/day: 1.00 Years: 18.00 Pack years: 18.00 Types: Cigarettes Start date: 09/30/2014 Smokeless tobacco: Never Used Substance and Sexual Activity Alcohol use: No Alcohol/week: 0.0 standard drinks Drug use: No Sexual activity: Not on file Lifestyle Physical activity Days per week: Not on file Minutes per session: Not on file Stress: Not on file Relationships Social connections Talks on phone: Not on file Gets together: Not on file Attends hinduism service: Not on file Active member of club or organization: Not on file Attends meetings of clubs or organizations: Not on file Relationship status: Not on file Other Topics Concern Not on file Social History Narrative Not on file Previous Medications Medication Sig ARIPiprazole (ABILIFY) 10 MG tablet Take 10 mg by mouth daily. atorvastatin (LIPITOR) 20 MG tablet Take 20 mg by mouth nightly cyclobenzaprine (FLEXERIL) 10 MG tablet Take 1 (one) tablet (10 mg total) by mouth 3 (three) times a day as needed for muscle spasms. FLUoxetine (PROZAC) 40 MG capsule Take 40 mg by mouth daily. fluticasone-salmeterol (ADVAIR DISKUS) 250-50 mcg/dose diskus inhaler Inhale 1 puff 2 (two) times a day. insulin lispro (HumaLOG) 100 unit/mL injection Inject under the skin 3 (three) times a day before meals Sliding Scale LANTUS 100 unit/mL injection Inject under the skin 2 (two) times a day 55 units in the evening 60 units in the morning levETIRAcetam (KEPPRA) 1000 MG tablet Take 1,000 mg by mouth 2 (two) times a day metFORMIN (GLUCOPHAGE) 1000 MG tablet Take 1,000 mg by mouth 2 (two) times a day metoprolol tartrate (LOPRESSOR) 25 MG tablet Take 12.5 mg by mouth 2 (two) times a day. omeprazole (PRILOSEC) 40 MG capsule Take 40 mg by mouth 2 (two) times a day. pregabalin (LYRICA) 100 MG capsule Take 100 mg by mouth 3 (three) times a day. zolpidem (AMBIEN CR) 6.25 MG CR tablet Take 6.25 mg by mouth nightly as needed for sleep. Allergies Allergen Reactions Codeine Ketorolac Latex Dermatitis Propoxyphene N-Acetaminophen Tramadol Review of Systems Skin: Positive for wound. All other systems reviewed and are negative. Patient Vitals for the past 24 hrs: BP Temp Pulse Resp SpO2 Height Weight 06/03/20 1437 (!) 132/90 06/03/20 1424 (!) 152/111 98 F (36.7 C) (!) 108 18 99 % 5' 2 119.7 kg (264 lb) Physical Exam Constitutional: General: She is in acute distress. Appearance: Normal appearance. Eyes: General: Right eye: No discharge. Left eye: No discharge. Conjunctiva/sclera: Conjunctivae normal. Neck: Musculoskeletal: Neck supple. Cardiovascular: Rate and Rhythm: Regular rhythm. Tachycardia present. Pulmonary: Effort: Pulmonary effort is normal. No respiratory distress. Breath sounds: Normal breath sounds. Abdominal: General: Bowel sounds are normal. Palpations: Abdomen is soft. Tenderness: There is no abdominal tenderness. Musculoskeletal: Right lower leg: No edema. Left lower leg: No edema. Feet: Comments: She has an insulin pump stuck over her right triceps. Skin: General: Skin is warm and dry. Comments: The distal half of her left first toe is red, swollen, and tender. There is no fluctuance and there is no lymphangitis. Neurological: Mental Status: She is oriented to person, place, and time. Psychiatric: Mood and Affect: Mood normal. Laboratory & Radiographic Imaging (if done): Results for orders placed or performed during the hospital encounter of 06/03/20 Chem 7 Result Value Ref Range Sodium 143 135 - 145 mmol/L Potassium 3.9 3.5 - 5.1 mmol/L Chloride 109 (H) 98 - 108 mmol/L Bicarbonate 27 21 - 32 mmol/L Creatinine 1.28 (H) 0.40 - 1.10 mg/dL Glucose 288 (H) 65 - 99 mg/dL BUN 16 8 - 25 mg/dL eGFR 51 (L) >=60 mL/min/1.73 m2 BUN/Creatinine Ratio 12.5 10.0 - 20.0 Anion Gap 11 10 - 20 mmol/L Lactic Acid, Plasma Result Value Ref Range Lactic Acid 2.6 (H) 0.6 - 2.0 mmol/L CBC Auto Differential Result Value Ref Range WBC 7.71 4.50 - 11.00 K/mcL RBC 4.26 4.00 - 5.20 M/mcL Hemoglobin 13.1 12.0 - 16.0 g/dL Hematocrit 38.8 36.0 - 46.0 % MCV 91.1 80.0 - 100.0 fL MCH 30.8 26.0 - 34.0 pg MCHC 33.8 31.0 - 37.0 g/dL Platelets 253 150 - 400 K/mcL RDW - CV 12.3 11.6 - 14.8 % MPV 9.7 9.4 - 12.4 fL Neutrophils 68.6 % Lymphocytes 24.1 % Monocytes 4.8 % Eosinophils 1.4 % Basophils 0.8 % IG Percent 0.30 % Neutrophils Abs 5.29 1.70 - 7.00 K/mcL Lymphocytes Abs 1.86 0.90 - 4.00 K/mcL Monocytes Abs 0.37 0.30 - 0.90 K/mcL Eosinophils Abs 0.11 0.00 - 0.50 K/mcL Basophils Abs 0.06 0.00 - 0.30 K/mcL IG Absolute 0.02 0.00 - 0.30 K/mcL Nucleated RBC 0.0 % Nucleated RBC Abs 0.00 0.00 - 0.00 K/mcL CT Foot Left Without Contrast Final Result 1. There appears to be a small amount of soft tissue swelling along the plantar and medial aspect of the 1st toe which may be due to a cellulitis, but this is nonspecific. There is no CT evidence of osteomyelitis. 2. There are degenerative and postsurgical changes of the ankle as described above. Workstation ID: [id number] Critical Care Performed by: Ko Hankins MD Authorized by: Ko Hankins MD Total critical care time: 60 minutes Critical care start time: 06/03/2020 2:35 PM Critical care end time: 06/03/2020 3:35 PM Critical care was necessary to treat or prevent imminent or life-threatening deterioration of the following conditions: sepsis, metabolic crisis and dehydration. Critical care was time spent personally by me on the following activities: blood draw for specimens, development of treatment plan with patient or surrogate, discussions with primary provider, examination of patient, obtaining history from patient or surrogate, ordering and performing treatments and interventions, ordering and review of laboratory studies, ordering and review of radiographic studies and re- evaluation of patient's condition. MDM . At 3:45 PM the case was discussed with Dr. Bolivar. At 3:50 PM the patient's pulse is now down to 80. Clinical Impression: 1. Type 2 diabetes mellitus with left diabetic foot infection (HCC) ED Disposition ED Disposition Condition Comment Hospitalize Recommended Level of Care: Med Surg Phone call required?: No Follow-up Information Follow-up information has not been specified. Contact information for after-discharge care Follow-up information has not been specified. Ko Hankins MD 06/03/20 1555 Ko Hankins MD 06/03/20 1635 Ko Hankins MD 06/03/20 [address] scan Pt verbalized to dr hankins, the toe was leaking about one week ago and noticed a piece of skin came off like a blister. Pt has 2m x 1cm unstageable wound to medial tip of left great toe. Left foot swollen greater than right. Left foot redness noted. Pt present with wound to left great toe. Pt hx of one week wound. Pt denies any injuries to toe. Pt verbalizes was at [facility] yesterday and they did nothing for me . Pt did acknowledge she got antibiotics. Pt in nad Called [facility] [phone] to see if they could fax me records from yesterdays ER visit, talked to Emma states she will fax the records documented in this encounter Care Team (unrecognized sect ion and content) Team Status: Active Member Role Status Dates Laurent Franco NP-Isabell Primary Care Provider Active Team Status: Inactive Member Role Status Dates Laurent Franco NP-Isabell Primary Care Provider Active Jacob Talbot DO Emergency Provider Active Ezekiel Mathew DO Admit Provider Active Jeana Martini MD Attending Provider Active Lawrence Kim MD Other Provider Active Swapnil Castillo DPM Other Provider Active Shameka Romero MD Other Provider Active Welfare Adviser Relationship Specialty Start Date End Date Cem Mario DO [address] [place] [address] PCP - General Family Medicine 05/28/15 Team Status: Active Member Role Status Dates Kip W [place] , INFORMATION ASSURANCE ANALYST-C Primary Care Provider Active Jacob Talbot , DO Emergency Provider Active Ezekiel Mathew , DO Admit Provider, Attending Pr ovidgabriela Active Team Status: Inactive Member Role Status Dates Kip W [place] , INFORMATION ASSURANCE ANALYST-C Primary Care Provider Active Jacob Talbot , DO Emergency Provider Active Ezekiel Mathew , DO Admit Provider Active Lawrence Kim MD Other Provider Active Swapnil Castillo DPM Other Provider Active Shameka Romero MD Other Provider Active Jeana Martini MD Attending Provider Active Team Status: Inactive Member Role Status Dates p W [place] , INFORMATION ASSURANCE ANALYST-C Primary Care Provider Active Shameka Romero MD Attending Provider Active Welfare Adviser Relationship Specialty Start Date End Date System, Provider Not In PCP - General 01/12/23 Welfare Adviser Relationship Specialty Start Date End Date System, Provider Not In PCP - General 01/12/23 Welfare Adviser Relationship Specialty Start Date End Date System, Provider Not In PCP - General 01/12/23 Welfare Adviser Relationship Specialty Start Date End Date System, Provider Not In PCP - General 01/12/23 03/29/23 [facility] [address] [place] [address] PCP - General Primary Care 03/30/23 Welfare Adviser Relationship Specialty Start Date End Date Estrella Hebert DO [address] [place] [address] PCP - General Primary Care 03/30/23 Welfare Adviser Relationship Specialty Start Date End Date Estrella Hebert DO [address] [place] [address] PCP - General Primary Care 03/30/23 Welfare Adviser Relationship Specialty Start Date End Date Estrella pisano DO [address] [place] [address] PCP - General Primary Care 03/30/23 Welfare Adviser Relationship Specialty Start Date End Date Anup Estrella, DO [address] [place] [address] PCP - General Primary Care 03/30/23 Welfare Adviser Relationship Specialty Start Date End Date aliya Estrella, DO [address] [place] [address] PCP - General Primary Care 03/30/23 Welfare Adviser Relationship Specialty Start Date End Date Sheng pisanoua [address] [place] [address] PCP - General Primary Care 03/30/23 Welfare Adviser Relationship Specialty Start Date End Date Estrella pisano [address] [place] [address] PCP - General Primary Care 03/30/23 Welfare Adviser Relationship Specialty Start Date End Date Estrella Hebert [address] [place] [address] PCP - General Primary Care 03/30/23 Welfare Adviser Relationship Specialty Start Date End Date Estrella Hebert DO [address] [place] [address] PCP - General Primary Care 03/30/23 Welfare Adviser Relationship Specialty Start Date End Date Estrella Hebert [address] [place] [address] PCP - General Primary Care 03/30/23 Welfare Adviser Relationship Specialty Start Date End Date Estrella pisano DO [address] [place] [address] PCP - General Primary Care 03/30/23 Welfare Adviser Relationship Specialty Start Date End Date Anup EstrellaDO [address] [place] [address] PCP - General Primary Care 03/30/23 Welfare Adviser Relationship Specialty Start Date End Date Estrella Hebert [address] [place] [address] PCP - General Primary Care 03/30/23 Welfare Adviser Relationship Specialty Start Date End Date Estrella Hebert DO [address] [place] [address] PCP - General Primary Care 03/30/23 Welfare Adviser Relationship Specialty Start Date End Date Estrella Hebert DO [address] [place] [address] PCP - General Primary Care 03/30/23 Welfare Adviser Relationship Specialty Start Date End Date Estrella Hebert DO [address] [place] [address] PCP - General Primary Care 03/30/23 Welfare Adviser Relationship Specialty Start Date End Date Estrella Hebert DO [address] [place] [address] PCP - General Primary Care 03/30/23 Welfare Adviser Relationship Specialty Start Date End Date Estrella Hebert DO [address] [place] [address] PCP - General Primary Care 03/30/23 Welfare Adviser Relationship Specialty Start Date End Date Estrella Hebert DO [address] [place] [address] PCP - General Primary Care 03/30/23 Welfare Adviser Relationship Specialty Start Date End Date Estrella Hebert DO [address] [place] [address] PCP - General Primary Care 03/30/23 04/29/23 No, Physician [facility] PCP - General 04/30/23 05/05/23 Stephany Pelayo PA-C [address] [place] [address] PCP - General Internal Medicine 05/06/23 Welfare Adviser Relationship Specialty Start Date End Date Stephany Pelayo PA-C [address] [place] [address] PCP - General Internal Medicine 05/06/23 Welfare Adviser Relationship Specialty Start Date End Date Stephany Pelayo PA-C [address] [place] [address] PCP - General Internal Medicine 05/06/23 Marcia Reynoso, softball winderRegional Sales Manager 05/14/23 Welfare Adviser Relationship Specialty Start Date End Date Stephany Pelayo PA-C [address] [place] [address] PCP - General Internal Medicine 05/06/23 Marcia Reynoso, softball winderRegional Sales Manager 05/14/23 Welfare Adviser Relationship Specialty Start Date End Date Stephany Pelayo PA-C [address] [place] [address] PCP - General Internal Medicine 05/06/23 Marcia Reynoso, softball winderRegional Sales Manager 05/14/23 Welfare Adviser Relationship Specialty Start Date End Date Stephany Pelayo PA-C [address] [place] [address] PCP - General Internal Medicine 05/06/23 Marcia Reynoso, softball winderRegional Sales Manager 05/14/23 Welfare Adviser Relationship Specialty Start Date End Date Stephany Pelayo PA-C [address] [place] [address] PCP - General Internal Medicine 05/06/23 Marcia Reynoso, softball winderRegional Sales Manager 05/14/23 Welfare Adviser Relationship Specialty Start Date End Date Anup EstrellaDO [address] [place] [address] PCP - General Primary Care 03/30/23 04/29/23 No, Physician [facility] PCP - General 04/30/23 05/05/23 Stephany Pelayo PA-C [address] [place] [address] PCP - General Internal Medicine 05/06/23 Marcia Reynoso, softball winderRegional Sales Manager 05/14/23 Welfare Adviser Relationship Specialty Start Date End Date Stephany Pelayo PA-C [address] [place] [address] PCP - General Internal Medicine 05/06/23 Marcia Reynoso, softball winderRegional Sales Manager 05/14/23 Welfare Adviser Relationship Specialty Start Date End Date Stephany Pelayo PA-C [address] [place] [address] PCP - General Internal Medicine 05/06/23 Marcia Reynoso, softball winderRegional Sales Manager 05/14/23 Welfare Adviser Relationship Specialty Start Date End Date Stephany Pelayo PA-C [address] [place] [address] PCP - General Internal Medicine 05/06/23 Marcia Reynoso softball winderRegional Sales Manager 07/30/23 Welfare Adviser Relationship Specialty Start Date End Date Stephany Pelayo PA-C [address] [place] [address] PCP - General Internal Medicine 05/06/23 Welfare Adviser Relationship Specialty Start Date End Date Lexy MD [address] [place] [phone] PCP - General Clinical Cardiac Electrophysiology 09/23/16 Cherelle Fierro MD [address] [place] [phone] Family Medicine 01/30/12 Cem Mario DO [address] [place] [address] Consulting Physician Family Medicine 03/20/17 Welfare Adviser Relationship Specialty Start Date End Date Stephany Pelayo PA-C [address] [place] [address] PCP - General Internal Medicine 05/06/23 Welfare Adviser Relationship Specialty Start Date End Date Stephany Pelayo PA-C [address] [place] [address] PCP - General Internal Medicine 05/06/23 Welfare Adviser Relationship Specialty Start Date End Date Stephany Pelayo PA-C [address] [place] [address] 2 [place] [address] PCP - General Internal Medicine 05/06/23 Welfare Adviser Relationship Specialty Start Date End Date Stephany Pelayo PA-C [address] [place] [address] 2 [place] [address] PCP - General Internal Medicine 05/06/23 Welfare Adviser Relationship Specialty Start Date End Date Stephany Pelayo PA-C [address] [place] [address] 2 [place] [address] PCP - General Internal Medicine 05/06/23 Marcia Reynoso, softball winderRegional Sales Manager 09/21/23 Welfare Adviser Relationship Specialty Start Date End Date Stephany Pelayo PA-C [address] [place] [address], [place] [address] PCP - General Internal Medicine 05/06/23 Marcia Reynoso, softball winderRegional Sales Manager 09/21/23 09/23/23 Welfare Adviser Relationship Specialty Start Date End Date Stephany Pelayo PA-C [address] [place] [address], [place] [address] PCP - General Internal Medicine 05/06/23 Welfare Adviser Relationship Specialty Start Date End Date Stephany Pelayo PA-C [address] [place] [address], [place] [address] PCP - General Internal Medicine 05/06/23 Welfare Adviser Relationship Specialty Start Date End Date Stephany Pelayo PA-C [address] [place] [address] 2 [place] [address] PCP - General Internal Medicine 05/06/23 Welfare Adviser Relationship Specialty Start Date End Date Stephany Pelayo PA-C [address] [address] PCP - General Internal Medicine 05/06/23 Welfare Adviser Relationship Specialty Start Date End Date Stephany Pelayo PA-C [address] [place] [address] PCP - General Internal Medicine 05/06/23 Welfare Adviser Relationship Specialty Start Date End Date Stephany Pelayo PA-C [address] [address] PCP - General Internal Medicine 05/06/23 Welfare Adviser Relationship Specialty Start Date End Date Stephany Pelayo PA-C [address] [place] [address] PCP - General Internal Medicine 05/06/23 Welfare Adviser Relationship Specialty Start Date End Date DecjermanLexy MD [address] [place] [phone] PCP - General Clinical Cardiac Electrophysiology 09/23/16 Cherelle Fierro MD [address] [place] [address], [address] [phone] Family Medicine 01/30/12 Cem Mario DO [address] [place] [address] Consulting Physician Family Medicine 03/20/17 Welfare Adviser Relationship Specialty Start Date End Date Stephany Pelayo PA-C [address] [address] PCP - General Internal Medicine 05/06/23 Welfare Adviser Relationship Specialty Start Date End Date Stephany Pelayo PA-C [address] [facility] [address] [place] [address] PCP - General Internal Medicine 05/06/23 Welfare Adviser Relationship Specialty Start Date End Date tSephany Pelayo PA-C [address] [facility] [address] [place] [address] PCP - General Internal Medicine 05/06/23 Welfare Adviser Relationship Specialty Start Date End Date Stephany Pelayo PA-C [address] [facility] [address] [place] [address] PCP - General Internal Medicine 05/06/23 Welfare Adviser Relationship Specialty Start Date End Date Stephany Pelayo PA-C [address] [facility] [address] [place] [address] PCP - General Internal Medicine 05/06/23 Welfare Adviser Relationship Specialty Start Date End Date Stephany Pelayo PA-C [address] [facility] [address] [place] [address] PCP - General Internal Medicine 05/06/23 Welfare Adviser Relationship Specialty Start Date End Date Stephany Pelayo PA-C [address] [facility] [address] [place] [address] PCP - General Internal Medicine 05/06/23 Welfare Adviser Relationship Specialty Start Date End Date Stephany Pelayo PA-C [address] [facility] [address] [place] [address] PCP - General Internal Medicine 05/06/23 Welfare Adviser Relationship Specialty Start Date End Date Stephany Pelayo PA-C [address] [facility] [address] [place] [address] PCP - General Internal Medicine 05/06/23 Welfare Adviser Relationship Specialty Start Date End Date Stephany Pelayo PA-C [address] [facility] [address] [place] [address] PCP - General Internal Medicine 05/06/23 Welfare Adviser Relationship Specialty Start Date End Date Stephany Pelayo PA-C [address] [facility] [address] [place] [address] PCP - General Internal Medicine 05/06/23 Welfare Adviser Relationship Specialty Start Date End Date Stephany Pelayo PA-C [address] [facility] [address] [place] [address] PCP - General Internal Medicine 05/06/23 Welfare Adviser Relationship Specialty Start Date End Date Stephany Pelayo PA-C [address] [facility] [address] [place] [address] PCP - General Internal Medicine 05/06/23 Welfare Adviser Relationship Specialty Start Date End Date Stephany Pelayo PA-C [address] [facility] [address] [place] [address] PCP - General Internal Medicine 05/06/23 Swapnil Hooks Community Health Worker Case Management 01/27/24 Welfare Adviser Relationship Specialty Start Date End Date Stephany Pelayo PA-C [address] [facility] [address] [place] [address] PCP - General Internal Medicine 05/06/23 Swapnil Hooks Community Health Worker Case Management 01/27/24 Welfare Adviser Relationship Specialty Start Date End Date Stephany Pelayo PA-C [address] [facility] [address] [place] [address] PCP - General Internal Medicine 05/06/23 Swapnil Hooks Community Health Worker Case Management 01/27/24 Welfare Adviser Relationship Specialty Start Date End Date Stephany Pelayo PA-C [address] [facility] [address] [place] [address] PCP - General Internal Medicine 05/06/23 Swapnil Hooks Community Health Worker Case Management 01/27/24 Welfare Adviser Relationship Specialty Start Date End Date Stephany Pelayo PA-C [address] [facility] [address] [place] [address] PCP - General Internal Medicine 05/06/23 Swapnil Hooks Community Health Worker Case Management 01/27/24 Welfare Adviser Relationship Specialty Start Date End Date Stephany Pelayo PA-C [address] [facility] [address] [place] [address] PCP - General Internal Medicine 05/06/23 Welfare Adviser Relationship Specialty Start Date End Date Stephany Pelayo PA-C [address] [facility] [address] [place] [address] PCP - General Internal Medicine 05/06/23 Swapnil Hooks Community Health Worker Case Management 01/27/24 Radha Davalos, MARION Dietitian Dietitian/Nutritionis t 02/04/24 Welfare Adviser Relationship Specialty Start Date End Date Stephany Pelayo PA-C [address] [facility] [address] [place] [address] PCP - General Internal Medicine 05/06/23 Swapnil Hooks Community Health Worker Case Management 01/27/24 Welfare Adviser Relationship Specialty Start Date End Date Stephany Pelayo PA-C [address] [place] [address], [place] [address] PCP - General Internal Medicine 05/06/23 Swapnil Hooks Community Health Worker Case Management 01/27/24 Radha Davalos, MARION Dietitian Dietitian/Nutritionis t 02/04/24 Welfare Adviser Relationship Specialty Start Date End Date Stephany Pelayo PA-C [address] [place] [address], [place] [address] PCP - General Internal Medicine 05/06/23 Swapnil Hooks Community Health Worker Case Management 01/27/2403/10 Welfare Adviser Relationship Specialty Start Date End Date Stephany Pelayo PA-C [address] [place] [address], [place] [address] PCP - General Internal Medicine 05/06/23 Welfare Adviser Relationship Specialty Start Date End Date Stephany Pelayo PA-C [address] [place] [address], [place] [address] PCP - General Internal Medicine 05/06/23 Welfare Adviser Relationship Specialty Start Date End Date Stephany Pelayo PA-C [address] [place] [address] PCP - General Internal Medicine 05/06/23 Welfare Adviser Relationship Specialty Start Date End Date Stephany Pelayo PA-C [address] [place] [address] PCP - General Internal Medicine 05/06/23 Welfare Adviser Relationship Specialty Start Date End Date Stephany Pelayo PA-C [address] [place] [address] PCP - General Internal Medicine 05/06/23 Welfare Adviser Relationship Specialty Start Date End Date Stephany Pelayo PA-C [address] [place] [address] PCP - General Internal Medicine 05/06/23 Welfare Adviser Relationship Specialty Start Date End Date Stephany Pelaoy PA-C [address] [place] [address] PCP - General Internal Medicine 05/06/23 Welfare Adviser Relationship Specialty Start Date End Date Stephany Pelayo PA-C [address] [place] [address] PCP - General Internal Medicine 05/06/23 Welfare Adviser Relationship Specialty Start Date End Date Stephany Pelayo PA-C [address] [place] [address] PCP - General Internal Medicine 05/06/23 Welfare Adviser Relationship Specialty Start Date End Date Stephany Pelayo PA-C [address] [place] [address] PCP - General Internal Medicine 05/06/23 Welfare Adviser Relationship Specialty Start Date End Date Stephany Pelayo PA-C [address] [place] [address] PCP - General Internal Medicine 05/06/23 Welfare Adviser Relationship Specialty Start Date End Date Stephany Pelayo PA-C [address] [place] [address] PCP - General Internal Medicine 05/06/23 Welfare Adviser Relationship Specialty Start Date End Date Stephany Pelayo PA-C [address] [place] [address] PCP - General Internal Medicine 05/06/23 Welfare Adviser Relationship Specialty Start Date End Date Stephany Pelayo PA-C [address] [place] [address] PCP - General Internal Medicine 05/06/23 Welfare Adviser Relationship Specialty Start Date End Date Stephany Pelayo PA-C [address] [place] [address] PCP - General Internal Medicine 05/06/23 Welfare Adviser Relationship Specialty Start Date End Date Unallocated, Noms Brendan, [address] [place] [address] PCP - General Family Medicine 07/05/24 Jim Velez MD [address] [facility] [place] [id number] Referring Physician Pain Medicine 07/05/24 Welfare Adviser Relationship Specialty Start Date End Date Stephany Pelayo PA-C [address] [place] [address] PCP - General Internal Medicine 05/06/23 Welfare Adviser Relationship Specialty Start Date End Date Stephany Pelayo PA-C [address] [place] [address] PCP - General Internal Medicine 05/06/23 Welfare Adviser Relationship Specialty Start Date End Date Stephany Pelayo PA-C [address] [place] [address] PCP - General Internal Medicine 05/06/23 Welfare Adviser Relationship Specialty Start Date End Date Stephany Pelayo PA-C [address] [place] [address], [place] [address] PCP - General Internal Medicine 05/06/23 Welfare Adviser Relationship Specialty Start Date End Date Stephany Pelayo PA-C [address] [place] [address], [place] [address] PCP - General Internal Medicine 05/06/23 Welfare Adviser Relationship Specialty Start Date End Date Stephany Pelayo PA-C [address] [place] [address] PCP - General Internal Medicine 05/06/23 Welfare Adviser Relationship Specialty Start Date End Date Stephany Pelayo PA-C [address] [place] [address], [place] [address] PCP - General Internal Medicine 05/06/23 Welfare Adviser Relationship Specialty Start Date End Date Stephany Pelayo PA-C [address] [place] [address] PCP - General Internal Medicine 05/06/23 Welfare Adviser Relationship Specialty Start Date End Date Stephany Pelayo PA-C [address] [place] [address] PCP - General Internal Medicine 05/06/23 Ordered Prescriptions (unrec ognized section and content) Prescription Sig Dispensed Refills Start Date End Da te zolpidem (AMBIEN) 5 MG tabletIndications:Other insomnia Take 1 tablet by mouth nightly as needed for Sleep for up to 14 days. 7 tablet 0 12/08/2021 12/22/2021 Scheduled Active and Recently Administ ered Medications (unrecognized section and content) Medication Order 12/06/2021 12/07/2021 12/08/2021 acetaminophen (TYLENOL) tablet 1,000 mg (COMPLETED) 1,000 mg, Oral, ONCE, 1 dose, On 12/08/21 at 1547, Maximum dose of acetaminophen is 4000 mg from all sources in 24 hours. 1553 (Given - Provid er: Lawrence Christiansen RN) Scheduled Medication Order 10/05/2022 10/06/2022 10/07/2022 iohexol (OMNIPAQUE) 300 MG/ML injection (COMPLETED) 50 mL, Intravenous Push, Once at Radiology exam, 1 dose, Starting on Thu10/07/22 at 0341, Until Tu10/07/22 at 0341, Imaging Protocol Orders 0341 (Given - Provid er: Beverley Iniguez) Iohexol SOLN 15,000 mg (COMPLETED) 15,000 mg (50 mL), Intrathecal, Once at Radiology exam, 1 dose, Starting on Thu10/07/22 at 0328, Until 10/07/22 at 0337, Imaging Protocol Orders 0337 (Given - Provid er: Beverley Iniguez) Iohexol SOLN 3,000 mg 3,000 mg (10 mL), Intrathecal, Once at Radiology exam, 1 dose, Starting on Thu10/07/22 at 0427, Until Discontinued, Imaging Protocol Orders magnesium sulfate 2 GM/50ML in 50 mL ivpb (COMPLETED) 2 g (2,000 mg), Intravenous, ONCE, 1 dose, On Thu10/07/22 at 0016 0009 (IV New Bag - Provider: Ifeanyi Ramesh RN)0715 (IV Stop - Provider: Mary Abdi RN) ondansetron (ZOFRAN) 4 MG/2ML injection (COMPLETED) 4 mg, Intravenous Push, ONCE, 1 dose, On Thu10/07/22 at 1118 1057 (Given - Provid er: Jaqueline Rowland RN) oxyCODONE-acetaminophen (PERCOCET) 5-325 mg per tablet (COMPLETED) 1 Tablet, Oral, STAT, 1 dose, On Thu10/06/22 at 2228 2214 (Given - Provider: Alejandro Mccullough RN) QUEtiapine (SEROQUEL) tablet (COMPLETED) 400 mg, Oral, Once, 1 dose, On Thu10/06/22 at 2339 0007 (Given - Provid er: Ifeanyi Ramesh RN) tizanidine (ZANAFLEX) tablet (COMPLETED) 12 mg, Oral, ONCE, 1 dose, On Thu10/06/22 at 2339 0008 (Given - Provid er: Ifeanyi Ramesh RN) Scheduled Medication Order 02/18/2023 02/19/2023 02/20/2023 clopidogreL (PLAVIX) tablet 75 mg 75 mg, Oral, Daily, First dose on Thu02/18/23 at 0900 0955 (Given - Provider: Sandra Raman RN) 1134 (Given - Provider: Rafaela Casarez LPN) 1018 (Given - Provider: Swapnil Maldonado RN) enoxaparin (LOVENOX) syringe 30 mg 30 mg, Subcutaneous, Daily, First dose (after last modification) on Thu02/20/23 at 0900, Administer in abdomen unless otherwise directed by prescriber. Notify physician if patient refuses., Indication: VTE Prophylaxis 1018 (Given - Provider: Swapnil Maldonado RN) enoxaparin (LOVENOX) syringe 40 mg (CANCELED) 40 mg, Subcutaneous, 2 times daily, First dose on Thu02/18/23 at 0900, Administer in abdomen unless otherwise directed by prescriber. Notify physician if patient refuses., Indication: VTE Prophylaxis 0957 (Given - Provider: Sandra Raman RN)2151 (Given - Provider: Monique Grande RN) 1134 (Given - Provider: Rafaela Casarez LPN) insulin lispro (AdmeLOG,HumaLOG) injection 0-15 Units 0-15 Units, Subcutaneous, At bedtime, First dose (after last modification) on Danelle 02/19/23 at 2100, For Nightly Insulin Dose Coverage, use: CORRECTIVE (Only) for BG greater than 300, Nightly CORRECTIVE Dose Method: Follow Corrective SCALE, Corrective Scale to use for BG > 300: Conservative Scale, For Downtime Calculator, use: Insulin SC NIGHTtime 2100 (Not Given - Provider: Dannielle Jeong RN - Reason: Other - Comment: PT doses herself insulin through her insulin pump.) insulin lispro (AdmeLOG,HumaLOG) injection 0-30 Units 0-30 Units, Subcutaneous, 3 times daily before meals, First dose on Thu02/18/23 at 0730, Continue to administer as long as tube feedings or parenteral nutrition are running. If tube feed or parenteral nutrition held, hold the base dose but continue to give corrective insulin as ordered. Resume total insulin once tube feedings resumed., Prandial Insulin Dosing Method: NO Prandial Dose - Corrective Scale ONLY, Corrective Insulin Regimen (select desired scale to cover BG result): Insulin RESISTANT Scale, For Downtime Calculator, use: Insulin SC MEALtime PREprandial 0730 (Not Given - Provider: Sandra Raman RN - Reason: Order parameters not met)1130 (Not Given - Provider: Sandra Raman RN - Reason: Patient/family refused - Comment: patient has insulin pump)1630 (Not Given - Provider: Sandra Raman RN - Reason: Patient/family refused - Comment: Patient gave self 20units from insulin pump) 0730 (Not Given - Provider: Rafaela Casarez LPN - Reason: Order parameters not met)1130 (Not Given - Provider: Rafaela Casarez LPN - Reason: Order parameters not met)1630 (Given - Provider: Dannielle Jeong RN - Comment: PT has insulin pump and doses herself.) 0730 (Given - Provider: Swapnil Maldonado RN - Comment: patient has insulin pump administers own insulin per pump)1130 (Not Given - Provider: Swapnil Maldonado RN - Reason: Patient/family refused) levETIRAcetam (KEPPRA) tablet 1,000 mg 1,000 mg, Oral, 2 times daily, First dose on Thu02/18/23 at 0900 0954 (Given - Provider: Sandra Raman RN)2151 (Given - Provider: Monique Grande RN) 1134 (Given - Provider: Rafaela Casarez LPN)2152 (Given - Provider: Dannielle Jeong, RN) 1018 (Given - Provider: Swapnil Maldonado, RN) levothyroxine (SYNTHROID, LEVOTHROID) tablet 75 mcg 75 mcg, Oral, Daily, First dose on Thu02/18/23 at 0600, For patients on continuous tube feed: Hold TF from 1 hr before until 1 hr after each dose. TF rate may need adjustment to meet caloric needs. 0609 (Given - Provider: Monique Grande RN) 0600 (Not Given - Provider: Rafaela Casarez LPN - Reason: Other - Comment: pt not awake enough at this time)0733 (Given - Provider: Rafaela Casarez LPN) 0518 (Given - Provider: Dannielle Jeong RN) lisinopriL (PRINIVIL,ZESTRIL) tablet 40 mg (CANCELED) 40 mg, Oral, Daily with lunch, First dose on Thu02/18/23 at 1200 1208 (Given - Provider: Sandra Raman RN) metoprolol succinate (TOPROL-XL) 24 hr tablet 50 mg (CANCELED) 50 mg, Oral, Daily, First dose on Thu02/18/23 at 0900, DO NOT CRUSH OR CHEW. 0956 (Given - Provider: Sandra Raman RN) midodrine (PROAMATINE) tablet 10 mg 10 mg, Oral, 2 times daily, First dose on Thu02/19/23 at 0900 0744 (Given - Provider: Rafaela Casarez LPN)0900 (Canceled Entry - Provider: Rafaela Casarez LPN - Comment: given)1723 (Not Given - Provider: Dannielle Jeong RN - Reason: Patient/family refused - Comment: PT stated she will not take medicatipn unless she can have her psych meds.) 0803 (Given - Provider: Swapnil Maldonado, JAEL) mometasone-formoterol (DULERA) 200-5 mcg/actuation inhaler 2 puff 2 puff, Inhalation, 2 times daily (RT), First dose on Thu02/18/23 at 0900 0956 (Given - Provider: Sandra Raman RN)2140 (Given - Provider: Monique Grande RN) 1134 (Given - Provider: Rafaela Casarez LPN)215 (Given - Provider: Dannielle Jeong RN) 1017 (Given - Provider: Swapnil Maldonado RN) pantoprazole (PROTONIX) EC tablet 40 mg 40 mg, Oral, Every morning before breakfast, First dose on Thu02/18/23 at 0730, DO NOT CRUSH OR CHEW. 0730 (Given - Provider: Sandra Raman RN) 1134 (Given - Provider: Rafaela Casarez LPN) 0803 (Given - Provider: Swapnil Maldonado RN) pregabalin (LYRICA) capsule 25 mg 25 mg, Oral, 2 times daily, First dose (after last modification) on Thu02/19/23 at 2100 215 (Given - Provider: Dannielle Jeong RN) 1017 (Given - Provider: Swapnil Maldonado RN) pregabalin (LYRICA) capsule 75 mg (CANCELED) 75 mg, Oral, 2 times daily, First dose on Thu02/18/23 at 0400 0404 (Given - Provider: Monique Grande RN)0955 (Given - Provider: Sandra Raman RN)215 (Given - Provider: Monique Grande RN) 0900 (Not Given - Provider: Rafaela Casarez LPN - Reason: Order parameters not met) QUEtiapine (SEROQUEL) tablet 200 mg 200 mg, Oral, Nightly, First dose (after last modification) on Danelle 02/19/23 at 2100, May cause QT interval prolongation. 215 (Given - Provider: Dannielle Jeong RN) QUEtiapine (SEROQUEL) tablet 800 mg (CANCELED) 800 mg, Oral, Nightly, First dose on Thu02/18/23 at 0400, May cause QT interval prolongation. 0404 (Given - Provider: Monique Grande RN)2153 (Given - Provider: Monique Grande RN) regadenoson (LEXISCAN) injection 0.4 mg (COMPLETED) 0.4 mg, Intravenous, Once, On Thu02/18/23 at 0945, For 1 dose 0920 (Given - Provider: Sandra Lorenzo RN) sodium chloride (PF) (NS) flush 5 mL(Linked Group 1) 5 mL, Intravenous, Every 8 hours scheduled, First dose on Thu02/18/23 at 0030, Saline lock 0415 (Given - Provider: Monique Grande RN - Comment: not verified prior)0600 (Canceled Entry - Provider: Monique Grande RN)1400 (Given - Provider: Sandra Raman, JAEL)2151 (Given - Provider: Monique Grande RN) 0600 (Canceled Entry - Provider: Rafaela Casarze LPN)1400 (Canceled Entry - Provider: Rafaela Casarez LPN)2200 (Not Given - Provider: Dannielle Jeong RN - Reason: Order parameters not met - Comment: IV infusing) 0600 (Not Given - Provider: Dnanielle Jeong RN - Reason: Order parameters not met - Comment: IV infusing)1400 (Not Given - Provider: Swapnil Maldonado RN - Reason: Other - Comment: discharging) sodium chloride 0.9% (NS) bolus 500 mL (COMPLETED) 500 mL, Intravenous, at 967.7 mL/hr, Once, On Thu02/19/23 at 0500, For 1 dose 0442 (New Bag - Provider: Rafaela Casarez LPN)0513 (Rate/Dose Change - Provider: Rafaela Casarez LPN)0521 (Stopped - Provider: Rafaela Casarez LPN) sodium chloride 0.9% (NS) bolus 500 mL () 500 mL, Intravenous, at 967.7 mL/hr, Once, On Danelle 02/19/23 at 0700, For 1 dose 0645 (Restarted - Provider: Rafaela Casarez LPN)0700 (Canceled Entry - Provider: Rafaela Casarez LPN)0715 (Stopped - Provider: Rafaela Casarez LPN) technetium (Tc-99m) sestamibi (CARDIOLITE) injection 30.4 millicurie (COMPLETED) 30.4 millicurie, Intravenous, Once, On Thu02/18/23 at 0930, For 1 dose 0923 (Contrast Administered - Provider: Davide Mims, TECHNOLOGIST) technetium (Tc-99m) sestamibi (CARDIOLITE) injection 8-25 millicurie (COMPLETED) 8-25 millicurie, Intravenous, Once, On Thu02/18/23 at 0930, For 1 dose 0740 (Contrast Administered - Provider: Swapnil Wright, TECHNOLOGIST) tiZANidine (ZANAFLEX) tablet 12 mg (CANCELED) 12 mg, Oral, Nightly, First dose on Thu02/18/23 at 2300 2315 (Given - Provider: Monique Grande RN) Continuous Medication Order 02/18/2023 02/19/2023 02/20/2023 sodium chloride 0.9% (NS) () 100 mL/hr, Intravenous, Continuous, Starting on Thu02/19/23 at 0700, For 10 hours 0700 (Canceled Entry - Provider: Rafaela Casarez LPN)0905 (New Bag - Provider: Rafaela Casarez LPN)0920 (Rate/Dose Change - Provider: Rafaela Casarez LPN - Comment: per verbal)1135 (Rate/Dose Verify - Provider: Rafaela Casarez LPN)1217 (Rate/Dose Change - Provider: Rafaela Casarez LPN)1344 (Rate/Dose Verify - Provider: Rafaela Casarez LPN) sodium chloride 0.9% (NS) 100 mL/hr, Intravenous, Continuous, Starting on Thu02/19/23 at 1415, For 24 hours 1415 (Canceled Entry - Provider: Rafaela Casarez LPN - Comment: duplicate)1729 (New Bag - Provider: Dannielle Jeong RN) PRN Medication Order 02/18/2023 02/19/2023 02/20/2023 albuterol inhaler 2 puff 2 puff, Inhalation, Once in imaging, wheezing, Prior to cardiac stress test, IF wheezing, Starting on Thu02/18/23 at 0028, For 48 hours, SPACER REQUIRED FOR ADMINISTRATION aluminum-magnesium hydroxide-simethicone (MAALOX PLUS) 200-200-20 mg/5 mL suspension 30 mL 30 mL, Oral, Every 4 hours PRN, indigestion, heartburn, Starting on Thu02/18/23 at 0028 atropine injection 0.25 mg 0.25 mg, Intravenous, As needed, For stress test when scheduled, Starting on Thu02/18/23 at 0028, For 48 hours, For stress test when scheduled If the target heart rate is 80% or less at the end of stage 3 dobutamine infusion, inject 0.25mg IV Atropine every 1 to 2 minutes until target heart rate is achieved or 1mg Atropine is administered bisacodyL (DULCOLAX) suppository 10 mg 10 mg, Rectal, Daily PRN, constipation, Starting on Thu02/18/23 at 0028, Try oral medications first for constipation. Try rectal medication if oral meds are ineffective, not tolerated, or not ordered. diphenhydrAMINE (BENADRYL) tablet 25 mg 25 mg, Oral, Every 6 hours PRN, itching, allergies, sleep, Starting on Thu02/18/23 at 0313 0404 (Given - Provider: Monique Grande RN) hydrOXYzine (ATARAX) tablet 25 mg 25 mg, Oral, 3 times daily PRN, anxiety, Starting on Danelle 02/19/23 at 8794 3889 (Given - Provider: Dannielle Jeong RN) magnesium hydroxide (MOM) 400 mg/5 mL suspension 2,400 mg 2,400 mg (30 mL), Oral, Daily PRN, constipation, Starting on Thu02/18/23 at 0028, If no bowel movement in 24 hours after Sennosides (SENNA) administration. melatonin Tab 5 mg 5 mg, Oral, Nightly PRN, Sleep, Starting on Thu02/18/23 at 0028, If still awake in 1 hour proceed to trazodone (Desyrel) nitroGLYCERIN (NITROSTAT) SL tablet 0.4 mg 0.4 mg, Sublingual, Every 5 min PRN, chest pain, Starting on Thu02/18/23 at 0028, For 3 doses, For chest pain unrelieved by Nitroglycerin or recurrent chest pain, CALL PHYSICIAN DO NOT CRUSH OR CHEW. 0357 ([facility] - Provider: Monique Grande RN) ondansetron (ZOFRAN) injection 4 mg(Linked Group 2) 4 mg, Intravenous, Every 6 hours PRN, nausea, vomiting, Starting on Thu02/18/23 at 0028, Use oral route first, if tolerated. ondansetron (ZOFRAN-ODT) disintegrating tablet 4 mg(Linked Group 2) 4 mg, Oral, Every 6 hours PRN, nausea, vomiting, Starting on Thu02/18/23 at 0028, Use oral route first, if tolerated. Formulation requires tablet remain in sealed package until immediately prior to dose being administered. senna (SENOKOT) tablet 8.6 mg 8.6 mg (1 tablet), Oral, 2 times daily PRN, constipation, Starting on Thu02/18/23 at 0028 sodium chloride (PF) (NS) flush 5 mL(Linked Group 1) 5 mL, Intravenous, As needed, line care, Starting on Thu02/18/23 at 0028 sodium chloride 0.9% (NS)(Linked Group 1) 0-150 mL/hr, Intravenous, As needed, To flush line after IV infusions when no maintenance IV ordered or a compatibility issue. Infuse 20ml at the same rate as the secondary infusion, Starting on Thu02/18/23 at 0028, Run as Primary IV. NOT intended for KVO. traZODone (DESYREL) tablet 50 mg 50 mg, Oral, Nightly PRN, sleep, Starting on Thu02/18/23 at 0028 Linked Groups Order Group 1: Saline lock IV (CANCELED) Routine, Continuous, Starting on Thu02/18/23 at 0030, Until Specified And sodium chloride (PF) (NS) flush 5 mLJump to med 5 mL, Intravenous, As needed, line care, Starting on Thu02/18/23 at 0028 And sodium chloride (PF) (NS) flush 5 mLJump to med 5 mL, Intravenous, Every 8 hours scheduled, First dose on Thu02/18/23 at 0030
Saline lock
And sodium chloride 0.9% (NS)Jump to med 0-150 mL/hr, Intravenous, As needed, To flush line after IV infusions when no maintenance IV ordered or a compatibility issue. Infuse 20ml at the same rate as the secondary infusion, Starting on Thu02/18/23 at 0028
Run as Primary IV. NOT intended for KVO.
Group 2: ondansetron (ZOFRAN-ODT) disintegrating tablet 4 mgJump to med 4 mg, Oral, Every 6 hours PRN, nausea, vomiting, Starting on Thu02/18/23 at 0028
Use oral route first, if tolerated. Formulation requires tablet remain in sealed package until immediately prior to dose being administered.
Or ondansetron (ZOFRAN) injection 4 mgJump to med 4 mg, Intravenous, Every 6 hours PRN, nausea, vomiting, Starting on Thu02/18/23 at 0028
Use oral route first, if tolerated.
Scheduled Medication Order 03/28/2023 03/29/2023 03/30/2023 heparin (porcine) injection 5,000 Units 5,000 Units, Subcutaneous, Every 8 hours scheduled, First dose on Thu03/29/23 at 2200, Notify physician if patient refuses. 2110 (Given - Provider: Dannielle Bui RN) 0509 (Given - Provider: Dannielle Bui RN)1400 (Not Given - Provider: Emily Granados LPN - Reason: Patient/family refused) heparin, porcine (PF) injection 500 Units 500 Units, Intravenous, Once, On Thu03/29/23 at 1310, For 1 dose 1310 (Not Given - Provider: Karon Desai RN - Reason: Patient/family refused - Comment: pt decided she was staying and not leaving AMA) heparin, porcine (PF) injection 500 Units (COMPLETED) 500 Units, Intravenous, Once, On 03/30/23 at 1215, For 1 dose 1240 (Given - Provid er: Fawn Valverde RN) insulin glargine (LANTUS) injection 25 Units 25 Units, Subcutaneous, Nightly, First dose on Thu03/29/23 at 2100, Do not mix with other insulins in a syringe. Do NOT hold basal insulin without notifying physician 2012 (Given - Provider: Dannielle Bui RN) levETIRAcetam (KEPPRA) tablet 1,000 mg 1,000 mg, Oral, 2 times daily, First dose on 03/29/23 at 2100, Do Not Crush or Chew if administering orally due to bitter taste. May be crushed if given via tube. 2010 (Given - Provider: Dannielle Bui RN) 0932 (Given - Provider: Emily Granados LPN) levothyroxine (SYNTHROID, LEVOTHROID) tablet 75 mcg 75 mcg, Oral, Daily, First dose on 03/29/23 at 1530, For patients on continuous tube feed: Hold TF from 1 hr before until 1 hr after each dose. TF rate may need adjustment to meet caloric needs. 151 (Given - Provider: Roshni Narvaez RN) 0509 (Given - Provider: Dannielle Bui RN) metoprolol succinate (TOPROL-XL) 24 hr tablet 25 mg 25 mg, Oral, Daily, First dose on 03/29/23 at 1530, DO NOT CRUSH OR CHEW. 151 (Given - Provider: Roshni Narvaez RN) 0932 (Given - Provider: Emily Granados LPN) morphine injection 2 mg (COMPLETED) 2 mg, Intravenous, Once, On 03/29/23 at 1325, For 1 dose 1419 (Given - Provider: Karon Desai RN) nitroGLYCERIN (NITRO-BID) 2 % ointment 0.5 inch 0.5 inch, Topical, Once, On 03/29/23 at 1325, For 1 dose, Hold for SBP less than 90. 1325 (Not Given - Provider: Karon Desai RN - Reason: Patient/family refused - Comment: pt reports she still has a headache from the last dose) ondansetron (ZOFRAN) injection 4 mg (COMPLETED) 4 mg, Intravenous, Once, On 03/29/23 at 1325, For 1 dose 1419 (Given - Provider: Karon Desai RN) pantoprazole (PROTONIX) EC tablet 40 mg 40 mg, Oral, Daily, First dose on 03/30/23 at 0900, DO NOT CRUSH OR CHEW. 0933 (Given - Provid er: Emily Granados LPN) pregabalin (LYRICA) capsule 75 mg 75 mg, Oral, 2 times daily, First dose on 03/29/23 at 2100 2010 (Given - Provider: Dannielle Bui RN) 09 (Given - Provider: Emily Granados LPN) QUEtiapine (SEROQUEL) tablet 400 mg 400 mg, Oral, Nightly, First dose on 03/29/23 at 2100, May cause QT interval prolongation. 2010 (Given - Provider: Dannielle Bui RN) sodium chloride (PF) (NS) flush 5 mL(Linked Group 1) 5 mL, Intravenous, Every 8 hours scheduled, First dose on 03/29/23 at 1530, Saline lock 1518 (Given - Provider: Roshni Narvaez RN)2110 (Given - Provider: Dannielle Bui RN) 0600 (Given - Provider: Dannielle Bui RN)1400 (Not Given - Provider: Emily Granados LPN - Reason: Loss of IV access) PRN Medication Order 03/28/2023 03/29/2023 03/30/2023 acetaminophen (TYLENOL) tablet 650 mg 650 mg, Oral, Every 6 hours PRN, mild pain, fever 100.4 F or greater, headaches, Starting on 03/29/23 at 1432 1722 (Given - Provider: Roshni Narvaez RN) calcium carbonate (TUMS) chewable tablet 500 mg 500 mg, Oral, Daily PRN, indigestion, heartburn, Starting on 03/29/23 at 2025, Give with Food flu vacc [id number] 6mos up(PF) (FLUZONE QUAD/FLULAVAL QUAD/FLUARIX QUAD) syringe Syrg 0.5 mL 0.5 mL, Intramuscular, Prior To Discharge, administer vaccine prior to discharge, ., Starting on 03/29/23 at 1453, For 1 dose melatonin Tab 5 mg 5 mg, Oral, Nightly PRN, Sleep, Starting on 03/29/23 at 1432, If still awake in 1 hour proceed to trazodone (Desyrel) nitroGLYCERIN (NITROSTAT) SL tablet 0.4 mg 0.4 mg, Sublingual, Every 5 min PRN, chest pain, Starting on 03/29/23 at 1432, For chest pain. May give up to 3 doses. Call physician for chest pain unrelieved by Nitroglycerin, or recurrent chest pain. DO NOT CRUSH OR CHEW. ondansetron (ZOFRAN) injection 4 mg(Linked Group 2) 4 mg, Intravenous, Every 6 hours PRN, nausea, vomiting, Starting on Sun 11 at 1432, Use oral route first, if tolerated. ondansetron (ZOFRAN-ODT) disintegrating tablet 4 mg(Linked Group 2) 4 mg, Oral, Every 6 hours PRN, nausea, vomiting, Starting on 03/29/23 at 1432, Use oral route first, if tolerated. Formulation requires tablet remain in sealed package until immediately prior to dose being administered. pneumococcal conj. 20-valent (PREVNAR 20) vaccine 0.5 mL 0.5 mL, Intramuscular, Prior To Discharge, administer vaccine prior to discharge, Starting on 03/29/23 at 1453, For 1 dose, REFRIGERATE. Hold the pre-filled syringe horizontally between the thumb and the forefinger and shake vigorously until the vaccine is a homogeneous white suspension. Do not use the vaccine if it cannot be re-suspended. For IM Use ONLY. senna (SENOKOT) tablet 8.6 mg 8.6 mg (1 tablet), Oral, 2 times daily PRN, constipation, Starting on 03/29/23 at 1432 sodium chloride (PF) (NS) flush 5 mL(Linked Group 1) 5 mL, Intravenous, As needed, line care, Starting on 03/29/23 at 1432 sodium chloride 0.9% (NS)(Linked Group 1) 0-150 mL/hr, Intravenous, As needed, To flush line after IV infusions when no maintenance IV ordered or a compatibility issue. Infuse 20ml at the same rate as the secondary infusion, Starting on 03/29/23 at 1432, Run as Primary IV. NOT intended for KVO. traZODone (DESYREL) tablet 50 mg 50 mg, Oral, Nightly PRN, sleep, Starting on 03/29/23 at 1432, To be administered 1 hour after melatonin if still awake. May repeat x 1 dose in 30 minutes if still awake. 2010 (Given - Provider: Dannielle Bui RN) Linked Groups Order Group 1: Saline lock IV (CANCELED) Routine, Continuous, Starting on 03/29/23 at 1433, Until Specified And sodium chloride (PF) (NS) flush 5 mLJump to med 5 mL, Intravenous, As needed, line care, Starting on 03/29/23 at 1432 And sodium chloride (PF) (NS) flush 5 mLJump to med 5 mL, Intravenous, Every 8 hours scheduled, First dose on 03/29/23 at 1530
Saline lock
And sodium chloride 0.9% (NS)Jump to med 0-150 mL/hr, Intravenous, As needed, To flush line after IV infusions when no maintenance IV ordered or a compatibility issue. Infuse 20ml at the same rate as the secondary infusion, Starting on 03/29/23 at 1432
Run as Primary IV. NOT intended for KVO.
Group 2: ondansetron (ZOFRAN-ODT) disintegrating tablet 4 mgJump to med 4 mg, Oral, Every 6 hours PRN, nausea, vomiting, Starting on 03/29/23 at 1432
Use oral route first, if tolerated. Formulation requires tablet remain in sealed package until immediately prior to dose being administered.
Or ondansetron (ZOFRAN) injection 4 mgJump to med 4 mg, Intravenous, Every 6 hours PRN, nausea, vomiting, Starting on 03/29/23 at 1432
Use oral route first, if tolerated.
Scheduled Medication Order 01/16/2024 01/17/2024 01/18/2024 atorvastatin (LIPITOR) tablet 40 mg 40 mg, Oral, Nightly, First dose on Thu01/12/24 at 2200 2311 (Given - Provider: Donnell Fowler RN) 232 (Given - Provider: Laura Lechuga, JAEL) busPIRone (BUSPAR) tablet 30 mg 30 mg, Oral, Every 12 hours scheduled, First dose on Thu01/12/24 at 2200 0905 (Given - Provider: Laura Levin RN)231 (Given - Provider: Donnell Fowler RN) 09 (Given - Provider: Laura Levin RN)232 (Given - Provider: Laura Lechuga RN) 0918 (Given - Provider: Kvng Portillo) citalopram (CELEXA) tablet 20 mg 20 mg, Oral, Daily, First dose on Thu01/13/24 at 0900 0905 (Given - Provider: Laura Levin RN) 0921 (Given - Provider: Laura Levin RN) 0919 (Given - Provider: Kvng Portillo) dextrose (GLUTOSE) 40 % gel 15 g 15 g, Oral, Once, On Thu01/18/24 at 0815, For 1 dose, Per Hypoglycemia Protocol: Blood Sugar: 51-69 mg/dL. Patient Condition: patient is ALERT, ABLE to swallow/eat and NOT NPO. Intervention: Administer oral glucose gel (15 grams carbohydrate) to swallow 0815 (Not Given - Provider: Kvng Portillo - Reason: Other - Comment: patient ate snack currently eating breakfast blood sugar within limtis) doxycycline (VIBRAMYCIN) oral solid 100 mg 100 mg, Oral, 2 times daily, First dose on Thu01/15/24 at 2100, Do not crush or open. Patient to sit up after administration for 30 minutes after taking and take with at least 8 ounces of water Take 1 hour before or 4 hours after metallic cations (e.g.antacids, aluminum,magnesium, calcium, ferrous sulfate), Indication: Diabetic Foot Infection 0614 (Given - Provider: Gely Rincon LPN)2311 (Given - Provider: Donnell Fowler RN) 0600 (Given - Provider: Donnell Fowler RN)2324 (Given - Provider: Laura Lechuga RN) 0616 (Given - Provider: Laura Lechuga RN) heparin (porcine) injection 5,000 Units 5,000 Units, Subcutaneous, Every 8 hours scheduled, First dose on Thu01/18/24 at 0900, Notify physician if patient refuses. 1001 (Given - Provider: Kvng Portillo)1400 (Due) heparin, porcine (PF) injection 500 Units (COMPLETED) 500 Units, Intravenous, Once, On Thu01/18/24 at 1200, For 1 dose 1227 (Given - Provider: Le Carrillo RN) levETIRAcetam (KEPPRA) tablet 1,000 mg 1,000 mg, Oral, 2 times daily, First dose on Thu01/14/24 at 1100 0905 (Given - Provider: Laura Levin RN)2311 (Given - Provider: Donnell Fowler RN) 0920 (Given - Provider: Laura Levin RN)2324 (Given - Provider: Laura Lechuga RN) 0914 (Given - Provider: Kvng Portillo) metoprolol succinate (TOPROL-XL) 24 hr tablet 25 mg 25 mg, Oral, Daily, First dose (after last modification) on Thu01/18/24 at 0900, Hold if sbp<100 DO NOT CRUSH OR CHEW. 0913 (Given - Provider: Kvng Portillo) metoprolol succinate (TOPROL-XL) 24 hr tablet 50 mg (CANCELED) 50 mg, Oral, Daily, First dose on Thu01/14/24 at 1345, DO NOT CRUSH OR CHEW. 0905 (Given - Provider: Laura Levin RN) 1200 (Not Given - Provider: Laura Levin RN - Reason: Contraindicated) pregabalin (LYRICA) capsule 150 mg 150 mg, Oral, Nightly, First dose on Thu01/12/24 at 2300 2311 (Given - Provider: Donnell Fowler RN) 232 (Given - Provider: Laura Lechuga RN) QUEtiapine (SEROQUEL) tablet 800 mg 800 mg, Oral, Nightly, First dose on Thu01/12/24 at 2300, May cause QT interval prolongation. 2311 (Given - Provider: Donnell Fowler RN) 232 (Given - Provider: Laura Lechuga RN) sodium chloride (PF) (NS) flush 5 mL(Linked Group 1) 5 mL, Intravenous, Every 8 hours scheduled, First dose on Thu01/12/24 at 2200, Saline lock 0600 (Given - Provider: Gely Rincon LPN)1400 (Canceled Entry - Provider: Laura Levin RN)2200 (Given - Provider: Donnell Fowler RN) 0600 (Given - Provider: Donnell Fowler RN)1400 (Canceled Entry - Provider: Laura Levin RN)2200 (Given - Provider: Laura Lechuga RN) 0617 (Given - Provider: Laura Lechuga RN)1400 (Due) sodium chloride 0.9% (NS) bolus 500 mL (COMPLETED) 500 mL, Intravenous, at 1,875 mL/hr, Once, On Thu01/16/24 at 0630, For 1 dose 0629 (New Bag - Provider: Gely Rincon LPN) tiZANidine (ZANAFLEX) tablet 8 mg 8 mg, Oral, Nightly, First dose on Thu01/12/24 at 2300 2311 (Given - Provider: Donnell Fowler RN) 2324 (Given - Provider: Laura Lechuga RN) Continuous Medication Order 01/16/2024 01/17/2024 01/18/2024 sodium chloride 0.9% (NS) (CANCELED) 100 mL/hr, Intravenous, Continuous, Starting on Thu01/12/24 at 1700 0412 (New Bag - Provider: Gely Rincon LPN)0712 (New Bag - Provider: Gely Rincon LPN)1042 (Stopped - Provider: Laura Levin RN)1047 (New Bag - Provider: Laura Levin RN) subcutaneous insulin pump Misc Miscellaneous, Continuous, Starting on Thu01/12/24 at 2215, Select Insulin Product in Pump: lispro (HUMALOG), Specify Number of Different Basal Rates per 24hr: 2, Starting Time: 12:00 AM, Basal Rate (units / hr): 2.5, Starting Time: 6:00 AM, Basal Rate (units / hr): 2.7, Prandial Bolus Method: Carbohydrate Ratio (1 unit of insulin per specified grams of carbs) PRN Medication Order 01/16/2024 01/17/2024 01/18/2024 albuterol (PROVENTIL) 2.5 mg /3 mL (0.083 %) nebulizer solution 2.5 mg 2.5 mg, Nebulization, Every 6 hours PRN (RT), wheezing, shortness of breath, Starting on Thu01/12/24 at 2113 hydrALAZINE (APRESOLINE) injection 10 mg 10 mg, Intravenous, Every 6 hours PRN, sbp>180, Starting on Thu01/13/24 at 1831 hydrOXYzine (ATARAX) tablet 50 mg 50 mg, Oral, 3 times daily PRN, anxiety, Starting on Thu01/12/24 at 2112 melatonin Tab 5 mg 5 mg, Oral, Nightly PRN, Sleep, Starting on Thu01/12/24 at 1822, If still awake in 1 hour proceed to trazodone (Desyrel) 2036 (Given - Provider: Donnell Fowler RN) naloxone (NARCAN) injection 0.1 mg(Linked Group 2) 0.1 mg, Intravenous, As needed, opioid reversal, For respiratory rate less than or equal to 8 per minute., Starting on Thu01/12/24 at 1822, Mix nalOXone (NARCAN) 0.4 mg (1mL) with 9 mL of Normal Saline to total 10 mL. Administer 0.1 mg (2.5mL) IV Push every 2 minutes until respiratory rate is 10 or greater. naloxone (NARCAN) injection 0.4 mg(Linked Group 2) 0.4 mg, Intravenous, As needed, opioid reversal, patient is pulseless, breathless, and unresponsive, Starting on Thu01/12/24 at 1822, Call a code first, then administer naloxone dose undiluted IV Push over 30 seconds. ondansetron (ZOFRAN) injection 4 mg(Linked Group 3) 4 mg, Intravenous, Every 6 hours PRN, nausea, vomiting, Starting on Thu01/12/24 at 1822, Use oral route first, if tolerated. ondansetron (ZOFRAN-ODT) disintegrating tablet 4 mg(Linked Group 3) 4 mg, Oral, Every 6 hours PRN, nausea, vomiting, Starting on Thu01/12/24 at 1822, Use oral route first, if tolerated. Formulation requires tablet remain in sealed package until immediately prior to dose being administered. oxyCODONE-acetaminophen (PERCOCET) 5-325 mg per tablet 1 tablet 1 tablet, Oral, Every 6 hours PRN, moderate to severe pain, Starting on Thu01/12/24 at 1822 1216 (Given - Provider: Laura Levin RN)2036 (Given - Provider: Donnell Fowler RN) 0504 (Given - Provider: Donnell Fowler RN)1225 (Given - Provider: Laura Levin RN)1828 (Given - Provider: Laura Levin RN) 0049 (Given - Provider: Laura Lechuga RN)0856 (Given - Provider: Pippa Quiles RN) senna (SENOKOT) tablet 8.6 mg 8.6 mg (1 tablet), Oral, 2 times daily PRN, constipation, Starting on Thu01/12/24 at 182 sodium chloride (PF) (NS) flush 5 mL(Linked Group 1) 5 mL, Intravenous, As needed, line care, Starting on Thu01/12/24 at 1822 sodium chloride 0.9% (NS)(Linked Group 1) 0-150 mL/hr, Intravenous, As needed, To flush line after IV infusions when no maintenance IV ordered or a compatibility issue. Infuse 20ml at the same rate as the secondary infusion, Starting on Thu01/12/24 at 1822, Run as Primary IV. NOT intended for KVO. traZODone (DESYREL) tablet 50 mg 50 mg, Oral, Nightly PRN, sleep, Starting on Thu01/12/24 at 182, To be administered 1 hour after melatonin if still awake. May repeat x 1 dose in 30 minutes if still awake. Linked Groups Order Group 1: Saline lock IV (CANCELED) Routine, Continuous, Starting on Thu01/12/24 at 1824, Until Specified And sodium chloride (PF) (NS) flush 5 mLJump to med 5 mL, Intravenous, As needed, line care, Starting on Thu01/12/24 at 182 And sodium chloride (PF) (NS) flush 5 mLJump to med 5 mL, Intravenous, Every 8 hours scheduled, First dose on Thu01/12/24 at 2200, Saline lock And sodium chloride 0.9% (NS)Jump to med 0-150 mL/hr, Intravenous, As needed, To flush line after IV infusions when no maintenance IV ordered or a compatibility issue. Infuse 20ml at the same rate as the secondary infusion, Starting on Thu01/12/24 at 182, Run as Primary IV. NOT intended for KVO. Group 2: naloxone (NARCAN) injection 0.1 mgJump to med 0.1 mg, Intravenous, As needed, opioid reversal, For respiratory rate less than or equal to 8 per minute., Starting on Thu01/12/24 at 1823, Mix nalOXone (NARCAN) 0.4 mg (1mL) with 9 mL of Normal Saline to total 10 mL. Administer 0.1 mg (2.5mL) IV Push every 2 minutes until respiratory rate is 10 or greater. And Notify physician (CANCELED) STAT, Until discontinued, Starting on Thu01/12/24 at 1824, Until Specified, Respiratory rate less than: 8, For respiratory rate less than or equal to 8, notify physician and/or appropriate staff for additional orders. And naloxone (NARCAN) injection 0.4 mgJump to med 0.4 mg, Intravenous, As needed, opioid reversal, patient is pulseless, breathless, and unresponsive, Starting on Thu01/12/24 at 1823, Call a code first, then administer naloxone dose undiluted IV Push over 30 seconds. Group 3: ondansetron (ZOFRAN-ODT) disintegrating tablet 4 mgJump to med 4 mg, Oral, Every 6 hours PRN, nausea, vomiting, Starting on Thu01/12/24 at 1823, Use oral route first, if tolerated. Formulation requires tablet remain in sealed package until immediately prior to dose being administered. Or ondansetron (ZOFRAN) injection 4 mgJump to med 4 mg, Intravenous, Every 6 hours PRN, nausea, vomiting, Starting on Thu01/12/24 at 1823, Use oral route first, if tolerated. Scheduled Medication Order 04/02/2024 04/03/2024 04/04/2024 atorvastatin (LIPITOR) tablet 40 mg 40 mg, Oral, Nightly, First dose on Thu03/25/24 at 0400 2036 (Given - Provider: Ruby Lujan RN) 2122 (Given - Provider: Dannielle Jeong, RN) busPIRone (BUSPAR) tablet 30 mg 30 mg, Oral, 2 times daily, First dose on Thu03/25/24 at 0900 0905 (Given - Provider: Nicolette Coffey, JAEL)2036 (Given - Provider: Ruby Lujan RN) 826 (Given - Provider: Nicolette Coffey, JAEL)2123 (Given - Provider: Dannielle Jeong, RN) 08 (Given - Provider: Ifeoma Waterman RN) cefadroxil (DURICEF) capsule 500 mg 500 mg, Oral, Every 12 hours scheduled, First dose on Thu03/30/24 at 1500, Indication: Skin/Soft Tissue Infection 904 (Given - Provider: Nicolette Coffey, RN)2036 (Given - Provider: Ruby Lujan RN) 0834 (Given - Provider: Nicolette Coffey, RN)2124 (Given - Provider: Dannielle Jeong, RN) 1130 (Given - Provider: Ifeoma Waterman, RN) citalopram (CELEXA) tablet 40 mg 40 mg, Oral, Daily, First dose on Thu03/25/24 at 0900 0905 (Given - Provider: Nicolette Coffey, RN) 0828 (Given - Provider: Nicolette Coffey, RN) 0857 (Given - Provider: Ifeoma Waterman, JAEL) enoxaparin (LOVENOX) syringe 40 mg 40 mg, Subcutaneous, 2 times daily, First dose (after last modification) on Thu03/30/24 at 1000, Administer in abdomen unless otherwise directed by prescriber. Notify physician if patient refuses., Indication: VTE Prophylaxis 904 (Given - Provider: Nicolette Coffey, JAEL)2039 (Given - Provider: Ruby Lujan RN) 08 (Given - Provider: Nicolette Coffey, JAEL)2125 (Given - Provider: Dannielle Jeong, RN) 0856 (Given - Provider: Ifeoma Waterman, JAEL) heparin, porcine (PF) injection 500 Units (COMPLETED) 500 Units, Intravenous, Once, On Thu04/04/24 at 1615, For 1 dose 1525 (Given - Provider: Ifeoma Waterman, JAEL) insulin glargine (LANTUS) injection 30 Units (CANCELED) 30 Units, Subcutaneous, Nightly, First dose (after last modification) on Thu03/30/24 at 2100, If patient NPO and BG LESS than 100 before procedure, administer half (rounded up to nearest unit) of the glargine insulin (LANTUS) dose; if BG is GREATER than 100, administer the full dose unless otherwise instructed by ordering physician Do not mix with other insulins in a syringe. Do NOT hold basal insulin without notifying physician 2041 (Given - Provider: Ruby Lujan RN) insulin glargine (LANTUS) injection 35 Units 35 Units, Subcutaneous, Nightly, First dose (after last modification) on 04/03/24 at 2100, If patient NPO and BG LESS than 100 before procedure, administer half (rounded up to nearest unit) of the glargine insulin (LANTUS) dose; if BG is GREATER than 100, administer the full dose unless otherwise instructed by ordering physician Do not mix with other insulins in a syringe. Do NOT hold basal insulin without notifying physician 2124 (Given - Provider: Dannielle Jeong, JAEL) insulin lispro (AdmeLOG,HumaLOG) injection 0-15 Units(Linked Group 1) 0-15 Units, Subcutaneous, At bedtime, First dose on 03/27/24 at 2100, IF initial POC glucose is greater than 250, administer insulin as directed and re-check POC glucose no sooner than 2 hours after administration. THEN notify provider if POC glucose is still greater than 250., For nightly BG greater than 250, give: Half ( ) Corrective Scale, Nightly Prandial Snack Dosing Method: NO Snack Coverage - Corrective Scale ONLY, Nightly Insulin Dose Corrective Scale: FOLLOW DAYTIME Prandial Corrective Scale, Corrective Insulin Regimen (select desired scale to cover BG result): HIGH Resistance Scale, (REMINDER: Nightly Insulin Dose Corrective Scale will be automatically calculated to be of the daytime scale), Dose Reduction Threshold (at meals) for POC Blood Glucose less than or equal to: 80, For Downtime Calculator, use: Insulin SC NIGHTtime 2100 (Given - Provider: Ruby Lujan RN) 2131 (Not Given - Provider: Dannielle Jeong, JAEL - Reason: Order parameters not met) insulin lispro (AdmeLOG,HumaLOG) injection 0-30 Units 0-30 Units, Subcutaneous, 3 times daily before meals, First dose on 03/27/24 at 1130, * Dose should be given EITHER: No sooner than 10-15 minutes BEFORE a meal ( Specific Prandial Doses or NO Prandial Dose - Corrective Scale ONLY ) - OR - Immediately AFTER meal completed ( Carb Counting Ratio ), Prandial Insulin Dosing Method: NO Prandial Dose - Corrective Scale ONLY, Corrective Insulin Regimen (select desired scale to cover BG result): HIGH Resistance Scale, Dose Reduction Threshold (at meals) for POC Blood Glucose less than or equal to: 80, For Downtime Calculator, use: Insulin SC MEALtime PREprandial 0905 (Given - Provider: Nicolette Coffey RN)1226 (Given - Provider: Nicolette Coffey RN)1630 (Not Given - Provider: Nicolette Coffey RN - Reason: Contraindicated) 0829 (Given - Provider: Nicolette Coffey RN)1225 (Given - Provider: Nicolette Coffey RN)1630 (Not Given - Provider: Nicolette Coffey RN - Reason: Contraindicated) 0858 (Given - Provider: Ifeoma Waterman RN)1130 (Given - Provider: Ifeoma Waterman RN - Comment: BS from pump) lamoTRIgine (LAMICTAL) tablet 25 mg 25 mg, Oral, 2 times daily, First dose on Thu03/25/24 at 0900 0905 (Given - Provider: Nicolette Coffey RN)2037 (Given - Provider: Ruby Lujan RN) 08 (Given - Provider: Nicolette Coffey RN)2126 (Given - Provider: Dannielle Jeong, JAEL) 0857 (Given - Provider: Ifeoma Waterman RN) levothyroxine (SYNTHROID, LEVOTHROID) tablet 75 mcg 75 mcg, Oral, Daily, First dose on Thu03/25/24 at 0600, Avoid administration with soybean flour, cottonseed meal, walnuts, and dietary fiber. Administer at least 1 hour before breakfast. Hold continuous tube feeds for at least 1 hour before until 1 hour after each dose. Flush tube with 30mL of water before and after administration. Tube feed rate may need adjusted to meet caloric needs. 0526 (Given - Provider: Ruby Lujan RN) 0609 (Given - Provider: Ruby Lujan RN) 0637 (Given - Provider: Dannielle Jeong, JAEL) metoprolol tartrate (LOPRESSOR) tablet 25 mg 25 mg, Oral, 2 times daily, First dose on Thu04/01/24 at 2100 0905 (Given - Provider: Nicolette Coffey RN)2037 (Given - Provider: Ruby Lujan RN) 08 (Given - Provider: Nicolette Coffey RN)2123 (Given - Provider: Dannielle Jeong, JAEL) 0857 (Given - Provider: Ifeoma Waterman RN) nicotine (NICODERM CQ) 14 mg/24 hr 1 patch 1 patch, Transdermal, Administer over 24 Hours, Daily, First dose (after last modification) on Thu03/30/24 at 2130, U/P Listed Hazardous Drug. Waste Must Be Disposed in [employer] Waste Container 0904 (Patch Applied - Provider: Nicolette Coffey RN) 0859 (Patch Removed - Provider: Nicolette Coffey RN)0900 (Not Given - Provider: Nicolette Coffey RN - Reason: Patient/family refused) 0857 (Not Given - Provider: Ifeoma Waterman RN - Reason: Patient/family refused) nortriptyline (PAMELOR) capsule 25 mg 25 mg, Oral, Nightly, First dose on Thu03/25/24 at 2100, May cause QT interval prolongation. 2036 (Given - Provider: Ruby Lujan RN) 2124 (Given - Provider: Dannielle Jeong, JAEL) pantoprazole (PROTONIX) EC tablet 40 mg 40 mg, Oral, Every morning before breakfast, First dose on Thu03/25/24 at 0730, DO NOT CRUSH OR CHEW. 09 (Given - Provider: Nicolette Coffey RN) 0849 (Given - Provider: Nicolette Coffey RN) 0857 (Given - Provider: Ifeoma Waterman RN) pregabalin (LYRICA) capsule 75 mg 75 mg, Oral, 2 times daily, First dose on Thu03/25/24 at 0400 09 (Given - Provider: Nicolette Coffey RN)2036 (Given - Provider: Ruby Lujan RN) 0828 (Given - Provider: Nicolette Coffey RN)2122 (Given - Provider: Dannielle Jeong, JAEL) 0857 (Given - Provider: Ifeoma Waterman, JAEL) QUEtiapine (SEROQUEL) tablet 800 mg 800 mg, Oral, Nightly, First dose on Thu03/25/24 at 0400, May cause QT interval prolongation. 2036 (Given - Provider: Ruby Lujan RN) 2124 (Given - Provider: Dannielle Jeong, JAEL) sodium chloride (PF) (NS) flush 5 mL(Linked Group 2) 5 mL, Intravenous, Every 8 hours scheduled, First dose on Thu03/25/24 at 0600, Saline lock 0527 (Given - Provider: Ruby Lujan, RN)1400 (Canceled Entry - Provider: Nicolette Coffey RN)2200 (Given - Provider: Ruby Lujan RN) 0600 (Given - Provider: Ruby Lujan RN)1400 (Canceled Entry - Provider: Nicolette Coffey, JAEL)2126 (Given - Provider: Dannielle Jeong, JAEL) 0600 (Not Given - Provider: Dannielle Jeong RN - Reason: Order parameters not met)1400 (Canceled Entry - Provider: Ifeoma Waterman, JAEL - Comment: no peripherial line) timolol (TIMOPTIC) 0.5 % ophthalmic solution 1 drop 1 drop, Left Eye, Daily, First dose on Thu03/25/24 at 0900 0910 (Given - Provider: Nicolette Coffey RN) 0829 (Given - Provider: Nicolette Coffey RN) 0858 (Given - Provider: Ifeoma Waterman, JAEL) tiZANidine (ZANAFLEX) tablet 4 mg 4 mg, Oral, Nightly, First dose (after last modification) on Thu03/25/24 at 0400 2152 (Given - Provider: Ruby Lujan RN) 2123 (Given - Provider: Dannielle Jeong, JAEL) PRN Medication Order 04/02/2024 04/03/2024 04/04/2024 albuterol (PROVENTIL) 2.5 mg /3 mL (0.083 %) nebulizer solution 2.5 mg 2.5 mg, Nebulization, Every 6 hours PRN (RT), wheezing, shortness of breath, Starting on Thu03/25/24 at 0253 hydrALAZINE (APRESOLINE) injection 10 mg 10 mg, Intravenous, Every 6 hours PRN, SBP > 180 or DBP > 100, hold for HR >100, Starting on Thu04/01/24 at 1218 naloxone (NARCAN) injection 0.1 mg(Linked Group 3) 0.1 mg, Intravenous, As needed, opioid reversal, For respiratory rate less than or equal to 8 per minute., Starting on Thu03/25/24 at 0318, Mix nalOXone (NARCAN) 0.4 mg (1mL) with 9 mL of Normal Saline to total 10 mL. Administer 0.1 mg (2.5mL) IV Push every 2 minutes until respiratory rate is 10 or greater. naloxone (NARCAN) injection 0.4 mg(Linked Group 3) 0.4 mg, Intravenous, As needed, opioid reversal, patient is pulseless, breathless, and unresponsive, Starting on Thu03/25/24 at 0318, Call a code first, then administer naloxone dose undiluted IV Push over 30 seconds. ondansetron (ZOFRAN) injection 4 mg 4 mg, Intravenous, Every 6 hours PRN, nausea, vomiting, Starting on Thu03/25/24 at 1050 oxyCODONE-acetaminophen (PERCOCET) 5-325 mg per tablet 1 tablet 1 tablet, Oral, Every 4 hours PRN, moderate to severe pain, Starting on Thu03/25/24 at 0134 0441 (Given - Provider: Ruby Lujan RN)0904 (Given - Provider: Nicolette Coffey, JAEL)1313 (Given - Provider: Socorro Zepeda RN)1721 (Given - Provider: Nicolette Coffey RN)2152 (Given - Provider: Ruby Lujan RN) 0828 (Given - Provider: Nicolette Coffey, JAEL)1244 (Given - Provider: Nicolette Coffey, JAEL)1757 (Given - Provider: Nicolette Coffey, JAEL)2137 (Given - Provider: Dannielle Jeong, JAEL) 0422 (Given - Provider: Dannielle Jeong, JAEL)0857 (Given - Provider: Ifeoma Waterman, JAEL)1335 (Given - Provider: Ifeoma Waterman, JAEL) sodium chloride (PF) (NS) flush 5 mL(Linked Group 4) 5 mL, Intravenous, As needed, line care, Starting on Danelle 03/24/24 at 2020 sodium chloride (PF) (NS) flush 5 mL(Linked Group 2) 5 mL, Intravenous, As needed, line care, Starting on Thu03/25/24 at 0134 0859 (Given - Provider: Ifeoma Waterman, JAEL) sodium chloride 0.9% (NS)(Linked Group 4) 0-150 mL/hr, Intravenous, As needed, To flush line after IV infusions when no maintenance IV ordered or a compatibility issue. Infuse 20ml at the same rate as the secondary infusion, Starting on Danelle 03/24/24 at 2020, Run as Primary IV. NOT intended for KVO. sodium chloride 0.9% (NS)(Linked Group 2) 0-150 mL/hr, Intravenous, As needed, To flush line after IV infusions when no maintenance IV ordered or a compatibility issue. Infuse 20ml at the same rate as the secondary infusion, Starting on Thu03/25/24 at 0134, Run as Primary IV. NOT intended for KVO. traZODone (DESYREL) tablet 50 mg 50 mg, Oral, Nightly PRN, sleep, Starting on Thu03/25/24 at 0134 2137 (Given - Provider: Dannielle Jeong RN) Linked Groups Order Group 1: insulin lispro (AdmeLOG,HumaLOG) injection 0-15 UnitsJump to med 0-15 Units, Subcutaneous, At bedtime, First dose on 03/27/24 at 2100, IF initial POC glucose is greater than 250, administer insulin as directed and re-check POC glucose no sooner than 2 hours after administration. THEN notify provider if POC glucose is still greater than 250., For nightly BG greater than 250, give: Half ( ) Corrective Scale, Nightly Prandial Snack Dosing Method: NO Snack Coverage - Corrective Scale ONLY, Nightly Insulin Dose Corrective Scale: FOLLOW DAYTIME Prandial Corrective Scale, Corrective Insulin Regimen (select desired scale to cover BG result): HIGH Resistance Scale, (REMINDER: Nightly Insulin Dose Corrective Scale will be automatically calculated to be of the daytime scale), Dose Reduction Threshold (at meals) for POC Blood Glucose less than or equal to: 80, For Downtime Calculator, use: Insulin SC NIGHTtime And Notify physician (CANCELED) Routine, Until discontinued, Starting on 03/27/24 at 1016, Until Specified, Other: IF HS POC Glucose RE-CHECK Greater than 250, If initial HS POC glucose is greater than 250, administer insulin as directed and re-check POC glucose no sooner than 2 hours after administration. IF RE-CHECK POC glucose is still greater than 250, notify provider. Group 2: Saline lock IV (CANCELED) Routine, Continuous, Starting on Thu03/25/24 at 0135, Until Specified And sodium chloride (PF) (NS) flush 5 mLJump to med 5 mL, Intravenous, As needed, line care, Starting on Thu03/25/24 at 0134 And sodium chloride (PF) (NS) flush 5 mLJump to med 5 mL, Intravenous, Every 8 hours scheduled, First dose on Thu03/25/24 at 0600, Saline lock And sodium chloride 0.9% (NS)Jump to med 0-150 mL/hr, Intravenous, As needed, To flush line after IV infusions when no maintenance IV ordered or a compatibility issue. Infuse 20ml at the same rate as the secondary infusion, Starting on Thu03/25/24 at 0134, Run as Primary IV. NOT intended for KVO. Group 3: naloxone (NARCAN) injection 0.1 mgJump to med 0.1 mg, Intravenous, As needed, opioid reversal, For respiratory rate less than or equal to 8 per minute., Starting on Thu03/25/24 at 0318, Mix nalOXone (NARCAN) 0.4 mg (1mL) with 9 mL of Normal Saline to total 10 mL. Administer 0.1 mg (2.5mL) IV Push every 2 minutes until respiratory rate is 10 or greater. And Notify physician (CANCELED) STAT, Until discontinued, Starting on Thu03/25/24 at 0319, Until Specified, Respiratory rate less than: 8, For respiratory rate less than or equal to 8, notify physician and/or appropriate staff for additional orders. And naloxone (NARCAN) injection 0.4 mgJump to med 0.4 mg, Intravenous, As needed, opioid reversal, patient is pulseless, breathless, and unresponsive, Starting on Thu03/25/24 at 0318, Call a code first, then administer naloxone dose undiluted IV Push over 30 seconds. Group 4: Insert peripheral IV (COMPLETED) SEKOU, Once, On Danelle 03/24/24 at 2024, For 1 occurrence And Saline lock IV (CANCELED) SEKOU, Once, On Thu03/24/24 at 2024, For 1 occurrence And sodium chloride (PF) (NS) flush 5 mLJump to med 5 mL, Intravenous, As needed, line care, Starting on Danelle 03/24/24 at 2020 And sodium chloride 0.9% (NS)Jump to med 0-150 mL/hr, Intravenous, As needed, To flush line after IV infusions when no maintenance IV ordered or a compatibility issue. Infuse 20ml at the same rate as the secondary infusion, Starting on Danelle 03/24/24 at 2020, Run as Primary IV. NOT intended for KVO. Scheduled Medication Order 04/27/2024 04/28/2024 04/29/2024 atorvastatin (LIPITOR) tablet 40 mg 40 mg, Oral, Nightly, First dose (after last modification) on Thu04/27/24 at 0200 0242 (Given - Provider: Kyrie Gonzalez RN)2020 (Given - Provider: Kinza Plascencia LPN) 2106 (Given - Provider: Aleyda Villegas, JAEL) busPIRone (BUSPAR) tablet 30 mg 30 mg, Oral, 2 times daily, First dose (after last modification) on Thu04/27/24 at 0900 0803 (Given - Provider: Zuly Benjamin RN)2021 (Given - Provider: Kinza Plascencia LPN) 08 (Given - Provider: Yvette Canchola RN)2107 (Given - Provider: Aleyda Villegas RN) 08 (Given - Provider: Yvette Canchola RN) ceFAZolin (ANCEF) IVPB 2 g (premix) 2,000 mg, Intravenous, at 100 mL/hr, Every 8 hours, First dose on Thu04/27/24 at 0600, Indication: Community Acquired Cellulitis 0546 (New Bag - Provider: Kyrie Gonzalez RN)0742 (Stopped - Provider: Zuly Benjamin RN)1324 (New Bag - Provider: Zuly Benjamin RN)1453 (Stopped - Provider: Zuly Benjamin RN)2138 (New Bag - Provider: Kinza Plascencia LPN) 0614 (New Bag - Provider: Kinza Plascencia LPN)0644 (Stopped - Provider: Hayde Boyer RN)1429 (New Bag - Provider: Yvette Canchola RN)2114 (New Bag - Provider: Aleyda Villegas RN) 0540 (New Bag - Provider: Aleyda Villegas RN)1333 (Stopped - Provider: Hayde Boyer RN)1342 (New Bag - Provider: Yvette Canchola RN)1451 (Stopped - Provider: Yvette Canchola RN) enoxaparin (LOVENOX) syringe 40 mg 40 mg, Subcutaneous, 2 times daily, First dose on Thu04/27/24 at 0900, Administer in abdomen unless otherwise directed by prescriber. Notify physician if patient refuses., Indication: VTE Prophylaxis 803 (Given - Provider: Zuly Benjamin RN)2023 (Given - Provider: Kinza Plascencia LPN) 825 (Given - Provider: Yvette Canchola RN)2106 (Given - Provider: Aleyda Villegas RN) 08 (Not Given - Provider: Yvette Canchola RN - Reason: Patient/family refused) heparin, porcine (PF) injection 500 Units (COMPLETED) 500 Units, Intravenous, Once, On Thu04/29/24 at 1500, For 1 dose, De-access port 1452 (Given - Provider: Yvette Canchola RN) insulin glargine (LANTUS) injection 35 Units (CANCELED) 35 Units, Subcutaneous, Nightly, First dose (after last modification) on Thu04/27/24 at 0300, If patient NPO and BG LESS than 100 before procedure, administer half (rounded up to nearest unit) of the glargine insulin (LANTUS) dose; if BG is GREATER than 100, administer the full dose unless otherwise instructed by ordering physician Do not mix with other insulins in a syringe. Do NOT hold basal insulin without notifying physician 240 (Given - Provider: Kyrie Gonzalez RN) insulin glargine (LANTUS) injection 45 Units (CANCELED) 45 Units, Subcutaneous, Nightly, First dose (after last modification) on Thu04/27/24 at 2100, If patient NPO and BG LESS than 100 before procedure, administer half (rounded up to nearest unit) of the glargine insulin (LANTUS) dose; if BG is GREATER than 100, administer the full dose unless otherwise instructed by ordering physician Do not mix with other insulins in a syringe. Do NOT hold basal insulin without notifying physician 2024 (Given - Provider: Kinza Plascencia LPN) insulin glargine (LANTUS) injection 60 Units 60 Units, Subcutaneous, Nightly, First dose (after last modification) on Danelle 04/28/24 at 2100, If patient NPO and BG LESS than 100 before procedure, administer half (rounded up to nearest unit) of the glargine insulin (LANTUS) dose; if BG is GREATER than 100, administer the full dose unless otherwise instructed by ordering physician Do not mix with other insulins in a syringe. Do NOT hold basal insulin without notifying physician 2107 (Given - Provider: Aleyda Villegas RN) insulin lispro (AdmeLOG,HumaLOG) injection 0-15 Units(Linked Group 1) 0-15 Units, Subcutaneous, At bedtime, First dose (after last modification) on Thu04/27/24 at 0200, IF initial POC glucose is greater than 250, administer insulin as directed and re-check POC glucose no sooner than 2 hours after administration. THEN notify provider if POC glucose is still greater than 250., For nightly BG greater than 250, give: Half ( ) Corrective Scale, Nightly Prandial Snack Dosing Method: NO Snack Coverage - Corrective Scale ONLY, Nightly Insulin Dose Corrective Scale: FOLLOW DAYTIME Prandial Corrective Scale, Corrective Insulin Regimen (select desired scale to cover BG result): HIGH Resistance Scale, (REMINDER: Nightly Insulin Dose Corrective Scale will be automatically calculated to be of the daytime scale), Dose Reduction Threshold (at meals) for POC Blood Glucose less than or equal to: 80, For Downtime Calculator, use: Insulin SC NIGHTtime 241 (Given - Provider: Kyrie Gonzalez RN)2024 (Not Given - Provider: Kinza Plascencia LPN - Reason: Order parameters not met) 2120 (Given - Provider: Aleyda Villegas RN) insulin lispro (AdmeLOG,HumaLOG) injection 0-30 Units 0-30 Units, Subcutaneous, 3 times daily before meals, First dose (after last modification) on Thu04/27/24 at 0730, * Dose should be given EITHER: No sooner than 10-15 minutes BEFORE a meal ( Specific Prandial Doses or NO Prandial Dose - Corrective Scale ONLY ) - OR - Immediately AFTER meal completed ( Carb Counting Ratio ), Prandial Insulin Dosing Method: NO Prandial Dose - Corrective Scale ONLY, Corrective Insulin Regimen (select desired scale to cover BG result): HIGH Resistance Scale, Dose Reduction Threshold (at meals) for POC Blood Glucose less than or equal to: 80, For Downtime Calculator, use: Insulin SC MEALtime PREprandial 0804 (Given - Provider: Zuly Benjamin RN)1137 (Given - Provider: Zuly Benjamin RN)1623 (Given - Provider: Zuly Benjamin RN) 0827 (Given - Provider: Yvette Canchola RN)1218 (Given - Provider: Yvette Canchola RN)1611 (Given - Provider: Yvette Canchola RN) 0832 (Given - Provider: Yvette Canchola RN)1144 (Given - Provider: Yvette Canchola RN) insulin lispro (AdmeLOG,HumaLOG) injection 10 Units (COMPLETED) 10 Units, Subcutaneous, Once, On Thu04/28/24 at 0630, For 1 dose 0615 (Given - Provider: Kinza Plascencia LPN - Comment: BG of 408) lamoTRIgine (LAMICTAL) tablet 25 mg 25 mg, Oral, 2 times daily, First dose (after last modification) on Thu04/27/24 at 0900 0804 (Given - Provider: Zuly Benjamin RN)2022 (Given - Provider: Kinza Plascencia LPN) 0826 (Given - Provider: Yvette Canchola RN)2108 (Given - Provider: Aleyda Villegas RN) 0831 (Given - Provider: Yvette Canchola RN) levothyroxine (SYNTHROID, LEVOTHROID) tablet 75 mcg 75 mcg, Oral, Daily, First dose (after last modification) on Thu04/27/24 at 0600, Avoid administration with soybean flour, cottonseed meal, walnuts, and dietary fiber. Administer at least 1 hour before breakfast. Hold continuous tube feeds for at least 1 hour before until 1 hour after each dose. Flush tube with 30mL of water before and after administration. Tube feed rate may need adjusted to meet caloric needs. 0544 (Given - Provider: Kyire Gonzalez RN) 0614 (Given - Provider: Kinza Plascencia LPN) 0541 (Given - Provider: Aleyda Villegas RN) metoprolol tartrate (LOPRESSOR) tablet 25 mg 25 mg, Oral, 2 times daily, First dose (after last modification) on Thu04/27/24 at 0900 08 (Given - Provider: Zuly Benjamin RN)2021 (Given - Provider: Kinza Plascencia LPN) 825 (Not Given - Provider: Yvette Canchola RN - Reason: Order parameters not met)2107 (Given - Provider: Aleyda Villegas RN) 830 (Given - Provider: Yvette Canchola RN) nicotine (NICODERM CQ) 14 mg/24 hr 1 patch 1 patch, Transdermal, Administer over 24 Hours, Daily, First dose (after last modification) on Thu04/27/24 at 0900, U/P Listed Hazardous Drug. Waste Must Be Disposed in [employer] Waste Container 08 (Patch Applied - Provider: Zuly Benjamin RN) 08 (Not Given - Provider: Yvette Canchola RN - Reason: Other - Comment: No patch on)824 (Not Given - Provider: Yvette Canchola RN - Reason: Patient/family refused) 835 (Not Given - Provider: Yvette Canchola RN - Reason: Patient/family refused) nortriptyline (PAMELOR) capsule 25 mg 25 mg, Oral, Nightly, First dose (after last modification) on Thu04/27/24 at 0300, May cause QT interval prolongation. 024 (Given - Provider: Kyrie Gonzalez RN)2020 (Given - Provider: Kinza Plascencia LPN) 2119 (Given - Provider: Aleyda Villegas RN) pantoprazole (PROTONIX) EC tablet 40 mg 40 mg, Oral, Every morning before breakfast, First dose (after last modification) on Thu04/27/24 at 0730, DO NOT CRUSH OR CHEW. 0804 (Given - Provider: Zuly Benjamin RN) 08 (Given - Provider: Yvette Canchola RN) 08 (Given - Provider: Yvette Canchola RN) pregabalin (LYRICA) capsule 75 mg 75 mg, Oral, 2 times daily, First dose (after last modification) on Thu04/27/24 at 0900 08 (Given - Provider: Zuly Benjamin RN)2021 (Given - Provider: Kinza Plascencia LPN) 08 (Given - Provider: Yvette Canchola RN)2106 (Given - Provider: Aleyda Villegas RN) 08 (Given - Provider: Yvette Canchola RN) QUEtiapine (SEROQUEL) tablet 800 mg 800 mg, Oral, Nightly, First dose (after last modification) on Thu04/27/24 at 0200, May cause QT interval prolongation. 024 (Given - Provider: Kyrie Gonzalez RN)2021 (Given - Provider: Kinza Plascencia LPN) 2106 (Given - Provider: Aleyda Villegas, JAEL) senna (SENOKOT) tablet 17.2 mg 17.2 mg (2 tablet), Oral, Nightly, First dose on Thu04/27/24 at 0200, For 5 days 024 (Given - Provider: Kyrie Gonzalez RN)2020 (Given - Provider: Kinza Plascencia LPN) 2100 (Not Given - Provider: Aleyda Villegas RN - Reason: Patient/family refused) timolol (TIMOPTIC) 0.5 % ophthalmic solution 1 drop 1 drop, Left Eye, Daily, First dose (after last modification) on Thu04/27/24 at 0900 1200 (Not Given - Provider: Zuly Benjamin RN - Reason: Other) 0900 (Not Given - Provider: Yvette Canchola RN - Reason: Patient/family refused) 0836 (Not Given - Provider: Yvette Canchola RN - Reason: Other) tiZANidine (ZANAFLEX) tablet 4 mg 4 mg, Oral, Nightly, First dose (after last modification) on Thu04/27/24 at 0200 024 (Given - Provider: Kyrie Gonzalez RN)2021 (Given - Provider: Kinza Plascencia LPN) 2107 (Given - Provider: Aleyda Villegas RN) Continuous Medication Order 04/27/2024 04/28/2024 04/29/2024 sodium chloride 0.9% (NS) () 100 mL/hr, Intravenous, Continuous, Starting on Thu04/26/24 at 2350, For 10 hours 0306 (New Bag - Provider: Kyrie Gonzalez RN)0900 (Stopped - Provider: Zuly Benjamin, JAEL) PRN Medication Order 04/27/2024 04/28/2024 04/29/2024 albuterol (PROVENTIL) 2.5 mg /3 mL (0.083 %) nebulizer solution 2.5 mg 2.5 mg, Nebulization, Every 6 hours PRN (RT), wheezing, shortness of breath, Starting on Thu04/27/24 at 010 hydrALAZINE (APRESOLINE) injection 10 mg 10 mg, Intravenous, Every 6 hours PRN, SBP > 180 or DBP > 100, hold for HR >100, Starting on Thu04/27/24 at 010 0426 (Given - Provider: Kyrie Gonzalez RN) naloxone (NARCAN) injection 0.1 mg(Linked Group 2) 0.1 mg, Intravenous, As needed, opioid reversal, For respiratory rate less than or equal to 8 per minute., Starting on Thu04/27/24 at 010, Mix nalOXone (NARCAN) 0.4 mg (1mL) with 9 mL of Normal Saline to total 10 mL. Administer 0.1 mg (2.5mL) IV Push every 2 minutes until respiratory rate is 10 or greater. naloxone (NARCAN) injection 0.4 mg(Linked Group 2) 0.4 mg, Intravenous, As needed, opioid reversal, patient is pulseless, breathless, and unresponsive, Starting on Thu04/27/24 at 010, Call a code first, then administer naloxone dose undiluted IV Push over 30 seconds. ondansetron (ZOFRAN) injection 4 mg 4 mg, Intravenous, Every 6 hours PRN, nausea, vomiting, Starting on Thu04/27/24 at 0109 0310 (Given - Provider: Kyrie Gonzalez RN) oxyCODONE-acetaminophe n (PERCOCET) 5-325 mg per tablet 1 tablet 1 tablet, Oral, Every 4 hours PRN, moderate to severe pain, Starting on Thu04/27/24 at 0109 0241 (Given - Provider: Kyrie Gonzalez RN)0926 (Given - Provider: Zuly Benjamin, JAEL)1703 (Given - Provider: Zuly Benjamin, JAEL)2134 (Given - Provider: Kinza Plascencia LPN) 0614 (Given - Provider: Kinza Plascencia LPN)1032 (Given - Provider: Shawna Telles, RN)1432 (Given - Provider: Yvette Canchola RN)1941 (Given - Provider: Aleyda Villegas, RN)2353 (Given - Provider: Aleyda Villegas, RN) 0415 (Given - Provider: Aleyda Villegas, RN)0831 (Given - Provider: Yvette Canchola RN)1341 (Given - Provider: Yvette Canchola RN) traZODone (DESYREL) tablet 50 mg 50 mg, Oral, Nightly PRN, sleep, Starting on Thu04/26/24 at 2343, May repeat times 1 in 30 minutes if still awake. 0241 (Given - Provider: Kyrie Gonzalez RN) No Frequency Medication Order 04/27/2024 04/28/2024 04/29/2024 sodium chloride 0.9 % (NS) infusion - ADS Override Pull (COMPLETED) Starting on Thu04/29/24 at 1345, For 1 dose, YVETTE CANCHOLA: cabinet override 1350 (New Bag - Prov ider: Yvette Canchola RN)1548 (Stopped - Provider: Yvette Canchola RN) Linked Groups Order Group 1: insulin lispro (AdmeLOG,HumaLOG) injection 0-15 UnitsJump to med 0-15 Units, Subcutaneous, At bedtime, First dose (after last modification) on Thu04/27/24 at 0200, IF initial POC glucose is greater than 250, administer insulin as directed and re-check POC glucose no sooner than 2 hours after administration. THEN notify provider if POC glucose is still greater than 250., For nightly BG greater than 250, give: Half ( ) Corrective Scale, Nightly Prandial Snack Dosing Method: NO Snack Coverage - Corrective Scale ONLY, Nightly Insulin Dose Corrective Scale: FOLLOW DAYTIME Prandial Corrective Scale, Corrective Insulin Regimen (select desired scale to cover BG result): HIGH Resistance Scale, (REMINDER: Nightly Insulin Dose Corrective Scale will be automatically calculated to be of the daytime scale), Dose Reduction Threshold (at meals) for POC Blood Glucose less than or equal to: 80, For Downtime Calculator, use: Insulin SC NIGHTtime And Notify physician (CANCELED) Routine, Until discontinued, Starting on Thu04/27/24 at 0110, Until Specified, Other: IF HS POC Glucose RE-CHECK Greater than 250, If initial HS POC glucose is greater than 250, administer insulin as directed and re-check POC glucose no sooner than 2 hours after administration. IF RE-CHECK POC glucose is still greater than 250, notify provider. Group 2: naloxone (NARCAN) injection 0.1 mgJump to med 0.1 mg, Intravenous, As needed, opioid reversal, For respiratory rate less than or equal to 8 per minute., Starting on Thu04/27/24 at 0109, Mix nalOXone (NARCAN) 0.4 mg (1mL) with 9 mL of Normal Saline to total 10 mL. Administer 0.1 mg (2.5mL) IV Push every 2 minutes until respiratory rate is 10 or greater. And Notify physician (CANCELED) STAT, Until discontinued, Starting on Thu04/27/24 at 0110, Until Specified, Respiratory rate less than: 8, For respiratory rate less than or equal to 8, notify physician and/or appropriate staff for additional orders. And naloxone (NARCAN) injection 0.4 mgJump to med 0.4 mg, Intravenous, As needed, opioid reversal, patient is pulseless, breathless, and unresponsive, Starting on Thu04/27/24 at 0109, Call a code first, then administer naloxone dose undiluted IV Push over 30 seconds. Goals (unrecognized section and content) Goals may be documented in a n alternate section FOR RECORDS PERTAINING TO PATIENTS WHO ARE OR HAVE BEEN ENROLLED IN A CHEMICAL DEPENDENCY/SUBSTANCEABUSE PROGRAM, SOME INFORMATION MAY BE OMITTED. This clinical summary was aggregated from multiple sources. Caution should be exercised in using it in the provision of clinical care. This summary normalizes information from multiple sources, and as a consequence, information in this document may materially change the coding, format and clinical context of patient data. In addition, data may be omitted in some cases. CLINICAL DECISIONS SHOULD BE BASED ON THE PRIMARY CLINICAL RECORDS. [facility]. provides no warranty or guarantee of the accuracy or completeness of information in this document.
--- NOTE | 2024-09-30 21:05 | ED.SEIZURE1 ---
HPI - Seizure General Chief Complaint: Seizure Stated Complaint: seizures Time Seen by Provider: 09/30/24 21:00 Source: patient Mode of arrival: Wheelchair Limitations: no limitations History of Present Illness HPI Narrative: history of epileptic seizures. Family states she did take her keppra this AM. Tonight she had a gen tonic clonic seizure and was vomiting. arrives to the ER awake but slow to answer questions. Does have a headache which is typical after her seizure. patient re interviewed now that she is AxOx3. States she can have a seizure daily. Sometimes they occur in her sleep. When she wakes up with a headache or stuttering this is her clue that she likely had a seizure. Seizure tonight while lying on her couch. Per family member typical seizure for her. Patient is not happy with her Neurologist as she feels more can be done to control her seizures she also complains of chest pain ongoing for past 2 weeks. It continues at this time Seizure History: Yes Related Data Home Medications ?Medication ?Instructions ?Recorded ?Confirmed albuterol sulfate 90 mcg/actuation 1 puff inhalation Q4H PRN 10/23/22 09/30/24 aerosol inhaler (Ventolin HFA) shortness of breath or wheezing aspirin 81 mg tablet,delayed 81 mg PO .daily 10/23/22 09/30/24 release chlorthalidone 25 mg tablet 25 mg PO .daily 10/23/22 09/30/24 levetiracetam 750 mg tablet 750 mg PO Q12H 10/23/22 09/30/24 lisinopril 40 mg tablet 40 mg PO .daily 10/23/22 09/30/24 quetiapine 400 mg tablet 800 mg PO .daily 10/23/22 09/30/24 levothyroxine 75 mcg tablet 75 mcg PO .ACB 06/25/24 09/30/24 loratadine 10 mg tablet 10 mg PO .QD 06/25/24 09/30/24 nortriptyline 25 mg capsule 25 mg PO .QHS 06/25/24 09/30/24 blood-glucose sensor (Dexcom G6 09/30/24 09/30/24 Sensor device) brexpiprazole 1 mg tablet (Rexulti) mg 09/30/24 citalopram 40 mg tablet mg 09/30/24 hydroxyzine pamoate 50 mg capsule mg 09/30/24 insulin lispro 100 unit/mL 09/30/24 subcutaneous solution insulin pump cart,auto,BT,G6/7 09/30/24 09/30/24 (Omnipod 5 G6-G7 Pods (Gen 5) subcutaneous cartridge) levetiracetam 1,000 mg tablet mg PO 09/30/24 metoprolol succinate 50 mg mg PO 09/30/24 tablet,extended release 24 hr oxycodone-acetaminophen 5 mg-325 tab 09/30/24 mg tablet paliperidone 3 mg tablet,extended mg PO 09/30/24 release 24 hr paliperidone 6 mg tablet,extended mg PO 09/30/24 release 24 hr paliperidone 9 mg tablet,extended mg PO 09/30/24 release 24 hr pantoprazole 40 mg tablet,delayed mg PO 09/30/24 release polyethylene glycol 3350 17 gram g 09/30/24 oral powder packet pregabalin 75 mg capsule mg 09/30/24 tizanidine 4 mg tablet mg 09/30/24 urea 40 % topical cream applic topical 09/30/24 Previous Rx's ?Medication ?Instructions ?Recorded levetiracetam 750 mg tablet 750 mg PO Q12H 10 days #20 tabs 06/25/24 (Keppra) Allergies Allergy/AdvReac Type Severity Reaction Status Date / Time latex Allergy Rash Verified 06/25/24 09:54 vancomycin Allergy Rash Verified 06/25/24 09:54 acetaminophen (From AdvReac Rash Verified 06/25/24 09:54 Darvocet-N) adhesive tape AdvReac Rash Verified 06/25/24 09:54 codeine AdvReac Rash Verified 06/25/24 09:54 dextrose 5 % in water (From AdvReac Rash Verified 06/25/24 09:54 Zyvox) fentanyl AdvReac Rash Verified 06/25/24 09:54 ibuprofen AdvReac Rash Verified 06/25/24 09:54 linezolid (From Zyvox) AdvReac Rash Verified 06/25/24 09:54 propoxyphene (From AdvReac Rash Verified 06/25/24 09:54 Darvocet-N) iv dye Allergy Rash Uncoded 06/25/24 09:54 Review of Systems ROS Status of ROS unobtainable due to mental status PFSH PFSH Social History Smoking status: Current every day smoker Little interest or pleasure in doing things: not at all Feeling down, depressed, or hopeless: not at all Exam Constitutional Vital Signs, click to edit/add: Last Vital Signs Temp 97.9 F 09/30/24 20:51 Pulse 97 H 10/01/24 07:31 Resp 17 10/01/24 07:31 BP 121/88 10/01/24 07:31 Pulse Ox 95 10/01/24 07:31 O2 Del Method Room Air 10/01/24 00:46 Common normals: alert HENMT Common normals: normocephalic and head/scalp atraumatic Eye Common normals: PERRL and EOMs intact bilaterally Chest Other: port right chest wall Respiratory Common normals: normal respiratory effort and no retractions GI Common normals: Normal to inspection, nondistended, normoactive bowel sounds present, soft to palpation and non-tender Extremity Common normals: normal to inspection Course Vital Signs Vital signs: Vital Signs Temperature 97.9 F 09/30/24 20:51 Pulse Rate 100 H 09/30/24 20:51 Respiratory Rate 18 09/30/24 20:51 Blood Pressure 117/90 09/30/24 20:51 Pulse Oximetry 96 09/30/24 20:51 Oxygen Delivery Method Room Air 09/30/24 20:51 Temperature 97.9 F 09/30/24 20:51 Pulse Rate 97 H 10/01/24 07:31 Respiratory Rate 17 10/01/24 07:31 Blood Pressure 121/88 10/01/24 07:31 Pulse Oximetry 95 10/01/24 07:31 Oxygen Delivery Method Room Air 10/01/24 00:46 MDM - Seizure MDM Narrative Medical decision making narrative: patient presents with seizure , elevated troponin and hypotension. Accepted at [facility]. no history of CAD per patient. states cardiac arrest 2019 and has [address] in [address]. Her BP has improved with hydration. She has been at [facility] in the past and would like to go there. Lab Data Labs: Lab Results 09/30/24 09/30/24 10/01/24 Range/Units 21:00 23:55 00:02 WBC 10.6 (4.0-11.0) 10^3/uL RBC 4.20 (4.20-5.40) 10^6/uL Hgb 12.8 (12.0-16.0) g/dL Hct 37.9 (36.0-48.0) % MCV 90.2 (81.0-99.0) fL MCH 30.5 (26.7-34.0) pg MCHC 33.8 (29.9-35.2) g/dL RDW 13.9 (11.0-15.0) % Plt Count 371 (150-450) 10^3/uL MPV 9.2 L (9.5-13.5) fL Neut % (Auto) 75.7 H (43.0-75.0) % Lymph % (Auto) 14.6 L (20.5-60.0) % Nolan % (Auto) 7.3 (1.7-12.0) % Eos % (Auto) 1.4 (0.9-7.0) % Baso % (Auto) 0.6 (0.2-2.0) % Neut # (Auto) 8.0 H (1.4-6.5) 10^3/uL Lymph # (Auto) 1.6 (1.2-3.8) 10^3/uL Nolan # (Auto) 0.8 (0.3-0.8) 10^3/uL Eos # (Auto) 0.2 (0.0-0.7) 10^3/uL Baso # (Auto) 0.1 (0.0-0.1) 10^3/uL Abs Immat Gran (auto) 0.04 H (0.00-0.03) 10^3/uL Imm/Tot Granulo (auto) 0.4 (0.0-0.5) % Sodium 133 L (136-145) mmol/L Potassium 3.6 (3.5-5.1) mmol/L Chloride 97 L (98-107) mmol/L Carbon Dioxide 26.1 (21.0-32.0) mmol/L Anion Gap 13.5 BUN 19.0 H (7.0-18.0) mg/dL Creatinine 2.04 H (0.55-1.02) mg/dL Est GFR ( Amer) 32 L (>=60 mL/min/1.73m^2) Est GFR (Non-Af Amer) 26 L (>=60 mL/min/1.73m^2) BUN/Creatinine Ratio 9.3 Glucose 154 H (74-106) mg/dL Lactate 3.2 H* 1.3 (0.4-2.0) mmol/L Calcium 8.9 (8.5-10.1) mg/dL Troponin I High Sens 180.9 H* 166.0 H* (4.0-51.3) pg/mL 10/01/24 Range/Units 02:00 WBC (4.0-11.0) 10^3/uL RBC (4.20-5.40) 10^6/uL Hgb (12.0-16.0) g/dL Hct (36.0-48.0) % MCV (81.0-99.0) fL MCH (26.7-34.0) pg MCHC (29.9-35.2) g/dL RDW (11.0-15.0) % Plt Count (150-450) 10^3/uL MPV (9.5-13.5) fL Neut % (Auto) (43.0-75.0) % Lymph % (Auto) (20.5-60.0) % Nolan % (Auto) (1.7-12.0) % Eos % (Auto) (0.9-7.0) % Baso % (Auto) (0.2-2.0) % Neut # (Auto) (1.4-6.5) 10^3/uL Lymph # (Auto) (1.2-3.8) 10^3/uL Nolan # (Auto) (0.3-0.8) 10^3/uL Eos # (Auto) (0.0-0.7) 10^3/uL Baso # (Auto) (0.0-0.1) 10^3/uL Abs Immat Gran (auto) (0.00-0.03) 10^3/uL Imm/Tot Granulo (auto) (0.0-0.5) % Sodium (136-145) mmol/L Potassium (3.5-5.1) mmol/L Chloride (98-107) mmol/L Carbon Dioxide (21.0-32.0) mmol/L Anion Gap BUN (7.0-18.0) mg/dL Creatinine (0.55-1.02) mg/dL Est GFR ( Amer) (>=60 mL/min/1.73m^2) Est GFR (Non-Af Amer) (>=60 mL/min/1.73m^2) BUN/Creatinine Ratio Glucose (74-106) mg/dL Lactate (0.4-2.0) mmol/L Calcium (8.5-10.1) mg/dL Troponin I High Sens 166.5 H* (4.0-51.3) pg/mL Discharge Plan Discharge Chief Complaint: Seizure Clinical Impression: Generalized seizure, Elevated troponin, Acute hypotension Patient Disposition: [facility] Discharge Date/Time: 10/01/24 07:36
[2024-09-30] MEDS: 0.9 % SODIUM CHLORIDE 1,000 ML 999 ML IV (21:15)
[2024-09-30] MEDS: ONDANSETRON PF 4 MG/2 ML VIAL IV (21:16)
--- NOTE | 2024-09-30 21:24 | PC.NURSE ---
Pt presents to ER with her daughter for seizure like activity pts daughter states that her mother has a hsistory of seizures and is epileptic Pt takes Keppra which her daughter knows she took earlier today Tonight began seizing and vomiting daughter brought her in to be evaluated pt alert but drowsy at this time complaining of a headache Port accessed and labs obtained
[2024-09-30 21:30] LABS: Basophils Absolute Auto 0.1 10^3/uL (0.0-0.1); Basophils Percent Auto 0.6 % (0.2-2.0); Eosinophils Absolute Auto 0.2 10^3/uL (0.0-0.7); Eosinophils Percent Auto 1.4 % (0.9-7.0); Hematocrit 37.9 % (36.0-48.0); Hemoglobin 12.8 g/dL (12.0-16.0); Immature Granulocytes Abs Auto 0.04 10^3/uL (0.00-0.03); Immature Granulocytes Pct Auto 0.4 % (0.0-0.5); Lymphocytes Absolute Auto 1.6 10^3/uL (1.2-3.8); Lymphocytes Percent Auto 14.6 % (20.5-60.0); Mean Corpuscular HGB Conc 33.8 g/dL (29.9-35.2); Mean Corpuscular Hemoglobin 30.5 pg (26.7-34.0); Mean Corpuscular Volume 90.2 fL (81.0-99.0); Mean Platelet Volume 9.2 fL (9.5-13.5); Monocytes Absolute Auto 0.8 10^3/uL (0.3-0.8); Monocytes Percent Auto 7.3 % (1.7-12.0); Neutrophils Percent Auto 75.7 % (43.0-75.0); Platelet Count 371 10^3/uL (150-450); Red Cell Distribution Width 13.9 % (11.0-15.0); White Blood Count 10.6 10^3/uL (4.0-11.0)
[2024-09-30 21:52] LABS: Anion Gap 13.5; BUN Creatinine Ratio 9.3; Calcium 8.9 mg/dL (8.5-10.1); Carbon Dioxide 26.1 mmol/L (21.0-32.0); Chloride 97 mmol/L (98-107); Estimated GFR (African America 32 (>=60 mL/min/1.73m^2); Estimated GFR (Non-African Ame 26 (>=60 mL/min/1.73m^2); Glucose 154 mg/dL (74-106); Potassium 3.6 mmol/L (3.5-5.1); Sodium 133 mmol/L (136-145)
[2024-09-30 22:04] LABS: Troponin I High Sensitivity 180.9 pg/mL (4.0-51.3)
[2024-09-30 22:05] LABS: Lactate/Lactic Acid 3.2 mmol/L (0.4-2.0)
--- NOTE | 2024-09-30 22:05 | ECG_ITS ---
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 Measurements Intervals [place] Rate: 96 P: 72 WI: 176 QRS: 53 QRSD: 88 T: 250 QT: 344 QTc: 398 Interpretive Statements 1100 Sinus rhythm 4564 Twave abnormality, possible lateral ischemia 4664 Twave abnormality, possible inferior ischemia 6120 Possible right atrial enlargement 9150 abnormal ECG Compared to ECG 06/25/2024 09:48:00 Possible ischemia now present Electronically Signed On 10-02-2024 12:34:21 EDT by RACHEL STUART M.D.
[2024-09-30] MEDS: OXYCODONE HCL/ACETAMINOPHEN 5MG/325MG 1 TAB PO (22:55)
[2024-10-01] VITALS (39 sets, daily range): BP systolic 90–121; BP diastolic 48–92; PULSE 92–105; O2SAT 88–98
[2024-10-01 00:29] LABS: Lactate/Lactic Acid 1.3 mmol/L (0.4-2.0)
[2024-10-01] MEDS: 0.9 % SODIUM CHLORIDE 1,000 ML 1000 ML IV (00:50)
[2024-10-01 05:58] LABS: Troponin I High Sensitivity 166.5 pg/mL (4.0-51.3)
== END 2024-10-01 07:36 | disposition short-term general hospital (02) ==
PROVIDERS: Emergency Provider Internal Medicine
DX: G40.409 Other generalized epilepsy and epileptic syndromes, not intractable, without status epilepticus (principal); R79.89 Other specified abnormal findings of blood chemistry; I95.9 Hypotension, unspecified; Z79.899 Other long term (current) drug therapy; R07.9 Chest pain, unspecified; F17.200 Nicotine dependence, unspecified, uncomplicated
CPT/HCPCS: 36415; 71045; 80048; 81001; 83605; 84484; 85025; 93005; 96361; 96374; 99285; J2405

== ENCOUNTER 2024-12-02 15:24 | Emergency (ER) | payer OTHER, SELFPAY ==
--- OUTSIDE RECORDS SUMMARY | 2024-03-15 09:45 | XMS_ITS ---
Author Organization [facility] Address [address] [place] [address] Care Team Providers Care Financial Coach Name Role Phone Enrique Hebert Primary Care Provider Unavailtheo Smith MD, [facility] Unavailable Unavailable Mario Castillo Unavailable [phone] REASON FOR VISIT C/O SEVERE BURNING WHILE WB. WALKING ON [place] Encounters Encounter Location Date Provider Diagnosis [facility] [address] [facility] [place] [address] 03/15/2024 Mario Castillo Plan Of Treatment Next Appt Details Provider Name:Mario rockwell, 03/14/2025 01:30:00 PM, [address] [place] [address] [place], [address], Progress Notes * CAITY SANDERSOB:1975 ( 49 yo F)Acc No.[id number]:03/15/2024 Progress Notes Patient: ADDIE ZUÑIGA Provider: Joel Castillo DPM :1975 A ge:48 Y S ex:Female Date:03/15/2024 Phone: Address:[address] [place], [place] [address] Pcp:Enrique Hebert Subjective: * Chief Complaints: * C /O SEVERE BURNING WHILE WB. WALKING ON [place] * Electronic signature of Romeo Castillo DPM on 12/02/2024 at 03:44 PM EDT Sign off status: Pending * Provider: Joel Castillo DPM Date: 1 Generated for Printi ng/Faxing/eTransmitting on: 0 12/02/2024 03:44 PM EDT
--- OUTSIDE RECORDS SUMMARY | 2024-04-20 10:15 | XMS_ITS ---
Author Organization [facility] Address [address] [facility] [address] [place] [address] Care Team Providers Care Industrial Engineering Analyst Name Role Phone Enrique Hebert Primary Care Provider Unavailtheo Smith MD, [facility] Unavailable Unavailable Mario Castillo Unavailable [phone] REASON FOR VISIT STITCH REMOVAL Encounters Encounter Location Date Provider Diagnosis [facility] [address] [facility] [place] [address] 04/20/2024 Mario Castillo Plan Of Treatment Next Appt Details Provider Name:Mario rockwell, 03/14/2025 01:30:00 PM, [address] [place] [address] [address], [place], [address], Progress Notes * CAITY SANDERSOB:1975 ( 49 yo F)Acc No.[id number]:04/20/2024 Patient: ADDIE ZUÑIGA Provider: Joel Castillo DPM :1975 A ge:49 Y S ex:Female Date:04/20/2024 Phone: Address:[address] [place], [place] [id number] Pcp:Enrique Hebert Subjective: * Chief Complaints: * S TITCH REMOVAL * Electronic signature of Romeo Castillo DPM on 12/02/2024 at 03:44 PM EDT Sign off status: Pending * Provider: Joel Castillo DPM Date: 06/20/2023 Generated for Printi ng/Faxing/eTransmitting on: 0 12/02/2024 03:44 PM EDT
--- OUTSIDE RECORDS SUMMARY | 2024-05-24 08:45 | XMS_ITS ---
Author Organization [facility] Address [address] [place] [address] [address] [place] [address] Care Team Providers Care Boilerhouse Mechanic Name Role Phone Enrique Hebert Primary Care Provider Unavailtheo Smith MD, [place] Unavailable Unavailable Mario Castillo Unavailable [phone] Encounters Encounter Location Date Provider Diagnosis [facility] [address] [place] [address] 05/24/2024 Mario Castillo Plan Of Treatment Next Appt Details Provider Name:Mario rockwell, 03/14/2025 01:30:00 PM, [address] [place] [address] [address], [place], [address], Progress Notes * BRIDGET SANDERSYDOB:1975 ( 49 yo F)Acc No.[id number]:05/24/2024 Patient: ADDIE ZUÑIGA Provider: Joel Castillo DPM :1975 A ge:49 Y S ex:Female Date:05/24/2024 Phone: Address:[address] [place], [place] [phone] Pcp:Enrique Hebert * Electronic signature of Romeo Castillo DPM on 12/02/2024 at 03:45 PM EDT Sign off status: Pending * Provider: Joel Castillo DPM Date: Generated for Printi ng/Faxing/eTransmitting on: 0 12/02/2024 03:45 PM EDT
--- OUTSIDE RECORDS SUMMARY | 2024-08-09 07:03 | XMS_ITS ---
Author Organization [facility] [place] Address [address] [place] [address] Care Team Providers Care Signal Maintainer Helper Name Role Phone Mario Baum DO Primary Care Provider Juanjo Snow [facility] [phone] Encounters Encounter Location Date Provider Diagnosis [facility] (PODIATRY) [address] [place] [address] [place] [address] 08/09/2024 Juanjo Amaro Plan Of Treatment No Information Progress Notes * Lisa JEAN BAPTISTE JDOB:1975 (49 yo F)Acc No.[id number]:08/09/2024 Patient: Lisa ZUÑIGA :1975 A ge:49 Y S ex:Female Address:[address] [place] [address] * true * Date: Generated for Rodney cota/Ling/eTransmitting on: 0 12/02/2024 03:44 PM EDT
[2024-12-02] VITALS (44 sets, daily range): BP systolic 93–145; BP diastolic 71–114; PULSE 60–93; TEMP 36.8; O2SAT 88–100
--- NOTE | 2024-12-02 15:26 | ECG_ITS ---
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
--- NOTE | 2024-12-02 15:26 | CT_ITS ---
[address] [address] Patient Name: ADDIE SANDERS MRN: [id number] date: 1975 Sex: F Assigned Patient Location: ER Current Patient Location: .[facility] Accession/Order Number: [id number] Exam Date: 12/02/2024 15:34 Report Date: 12/02/2024 15:37 At the request of: YARELIS HAMILTON MD Procedure: CT stroke head/brain wo con CT stroke head/brain wo con 12/02/2024 3:29 PM SIGNS AND SYMPTOMS: Altered mental status, seizure activity TECHNIQUE:Multi-detector CT axial slices of the brain were obtained without IV contrast. CT was performed with one or more of the following dose reduction techniques: Automated exposure control, adjustment of the mA and/or kV according to patient size, or use of iterative reconstruction technique. COMPARISON: 06/11/2022 FINDINGS: There is no shift of the midline structures, acute intracranial bleeding, mass effects, or evidence of acute ischemia. Atherosclerotic changes are noted in the intracranial segments of the internal carotid arteries. There is age-related cortical atrophy. The ventricular system is normal in size. The brainstem and the cerebellum are unremarkable. The visualized intraorbital contents, the visualized paranasal sinuses, and the infratemporal soft tissues show no acute abnormality. The osseous structures in the skull base and the calvarium show no abnormality. CT/CT stroke head/brain wo con IMPRESSION: No acute intracranial pathology. Similar mild age-related cortical atrophy. Impression dictated by: Compa Dobbs M.D. 12/02/2024 3:37 PM Dictation Location: [place] [address] Electronically authenticated by: [id number] Y Date: 12/02/2024 15:37
--- NOTE | 2024-12-02 15:42 | ED.AMS1 ---
HPI - Altered Mental Status General Chief Complaint: Altered Mental Status Stated Complaint: SEIZURE Time Seen by Provider: 12/02/24 15:25 Source: other Source comment: EMS Mode of arrival: ambulance History of Present Illness HPI narrative: Patient is a 49-year-old female with history of diabetes as well as seizure disorder on Keppra is coming to the ER after she was brought by the EMS. Called for seizure-like activity by someone in the house when the EMS arrived they did witness 5 seconds staring like seizure-like activity. The patient after that was confused and she mentioned that she cannot see. The patient denying any pain in her chest or abdomen but she does have a headache. The patient denies any nausea vomiting. She did take her insulin on a daily basis but blood sugar was noted to be above 100 by the EMS. It was noted that the patient is sleepy and she keeps falling asleep. Although she wake up easily and does say that she cannot see in both eyes when asked about the details the patient mentioned that she went to sleep today at 1 AM and woke up with a black vision both eyes Patient mentioned that she is supposed to have surgery for glaucoma of both eyes the patient is not sure if the only glaucoma or there is some cataract too. The patient mentioned that she is weak all over not specifically to 1 side. Mentioned that she had a history of stroke a long time ago Related Data Home Medications ?Medication ?Instructions ?Recorded ?Confirmed albuterol sulfate 90 mcg/actuation 1 puff inhalation Q4H PRN 10/23/22 09/30/24 aerosol inhaler (Ventolin HFA) shortness of breath or wheezing aspirin 81 mg tablet,delayed 81 mg PO .daily 10/23/22 09/30/24 release chlorthalidone 25 mg tablet 25 mg PO .daily 10/23/22 09/30/24 levetiracetam 750 mg tablet 750 mg PO Q12H 10/23/22 09/30/24 lisinopril 40 mg tablet 40 mg PO .daily 10/23/22 09/30/24 quetiapine 400 mg tablet 800 mg PO .daily 10/23/22 09/30/24 levothyroxine 75 mcg tablet 75 mcg PO .ACB 06/25/24 09/30/24 loratadine 10 mg tablet 10 mg PO .QD 06/25/24 09/30/24 nortriptyline 25 mg capsule 25 mg PO .QHS 06/25/24 09/30/24 blood-glucose sensor (Dexcom G6 09/30/24 09/30/24 Sensor device) brexpiprazole 1 mg tablet (Rexulti) mg 09/30/24 citalopram 40 mg tablet mg 09/30/24 hydroxyzine pamoate 50 mg capsule mg 09/30/24 insulin lispro 100 unit/mL 09/30/24 subcutaneous solution insulin pump cart,auto,BT,G6/7 09/30/24 09/30/24 (Omnipod 5 G6-G7 Pods (Gen 5) subcutaneous cartridge) levetiracetam 1,000 mg tablet mg PO 09/30/24 metoprolol succinate 50 mg mg PO 09/30/24 tablet,extended release 24 hr oxycodone-acetaminophen 5 mg-325 tab 09/30/24 mg tablet paliperidone 3 mg tablet,extended mg PO 09/30/24 release 24 hr paliperidone 6 mg tablet,extended mg PO 09/30/24 release 24 hr paliperidone 9 mg tablet,extended mg PO 09/30/24 release 24 hr pantoprazole 40 mg tablet,delayed mg PO 09/30/24 release polyethylene glycol 3350 17 gram g 09/30/24 oral powder packet pregabalin 75 mg capsule mg 09/30/24 tizanidine 4 mg tablet mg 09/30/24 urea 40 % topical cream applic topical 09/30/24 Previous Rx's ?Medication ?Instructions ?Recorded levetiracetam 750 mg tablet 750 mg PO Q12H 10 days #20 tabs 06/25/24 (Angella) Allergies Allergy/AdvReac Type Severity Reaction Status Date / Time latex Allergy Rash Verified 06/25/24 09:54 vancomycin Allergy Rash Verified 06/25/24 09:54 acetaminophen (From AdvReac Rash Verified 06/25/24 09:54 Darvocet-N) adhesive tape AdvReac Rash Verified 06/25/24 09:54 codeine AdvReac Rash Verified 06/25/24 09:54 dextrose 5 % in water (From AdvReac Rash Verified 06/25/24 09:54 Zyvox) fentanyl AdvReac Rash Verified 06/25/24 09:54 ibuprofen AdvReac Rash Verified 06/25/24 09:54 linezolid (From Zyvox) AdvReac Rash Verified 06/25/24 09:54 propoxyphene (From AdvReac Rash Verified 06/25/24 09:54 Darvocet-N) iv dye Allergy Rash Uncoded 06/25/24 09:54 Review of Systems ROS Status of ROS 10 or more systems reviewed and unremarkable except as noted in history and below PFSH PFSH Social History Smoking status: Current every day smoker Little interest or pleasure in doing things: not at all Feeling down, depressed, or hopeless: not at all Exam Narrative Exam Narrative: Nurses notes and vital signs reviewed and patient is not hypoxic. General: Well-appearing and in no apparent distress. Skin: Warm, dry, no pallor noted. No rash. Head: Normocephalic, atraumatic. Neck: Supple, non-tender. Eye: Pupils right is irregular in shape and the patient had a previous eye surgery in the left eye pupil is slow Ears, Nose, Mouth, and Throat: TM are clear, no nasal mucosal hypertrophy. Oral mucosa is moist, no posterior oropharynx erythema, uvula is mid-line Cardiovascular: Regular Rate and Rhythm without murmur, gallop or rub. Respiratory: No accessory muscle use or respiratory distress. Lungs are clear to auscultation, no wheezing, rales or rhonchi Chest Wall: no tenderness Back: No midline thoracic or lumbar vertebral tenderness. No CVA tenderness Musculoskeletal: normal ROM, no calf or popliteal tenderness, no lower extremity edema/swelling GI: Abdomen is soft, non-distended. Normal bowel sounds. No masses appreciated. No tenderness to palpation. No rebound, guarding, or rigidity noted. Neurological: The patient is sleepy and that every time you wake up for questioning she goes back to sleep although the patient does wake up and answer everything properly She is oriented x 3 but she mentioned that she is tired and she just went to sleep, there was no specific weakness and her NIH score was 3 only accounting for the fact that the patient is saying that she cannot see in both eyes The patient was not able to see any color or light as well Constitutional Vital Signs, click to edit/add: Last Vital Signs Temp 98.2 F 12/02/24 15:28 Pulse 61 12/02/24 18:20 Resp 20 12/02/24 18:20 BP 93/76 12/02/24 18:00 Pulse Ox 98 12/02/24 18:20 O2 Del Method Room Air 12/02/24 15:28 Course Vital Signs Vital signs: Vital Signs Temperature 98.2 F 12/02/24 15:28 Pulse Rate 80 12/02/24 15:28 Respiratory Rate 18 12/02/24 15:28 Blood Pressure 135/81 12/02/24 15:28 Pulse Oximetry 95 12/02/24 15:28 Oxygen Delivery Method Room Air 12/02/24 15:28 Temperature 98.2 F 12/02/24 15:28 Pulse Rate 61 12/02/24 18:20 Respiratory Rate 20 12/02/24 18:20 Blood Pressure 93/76 12/02/24 18:00 Pulse Oximetry 98 12/02/24 18:20 Oxygen Delivery Method Room Air 12/02/24 15:28 MDM - Altered Mental Status MDM Narrative Medical decision making narrative: Upon arrival the patient was taken to the CAT scan for acute stroke management The patient EKG showing sinus rhythm with a heart rate of [address] elevation or depression It was noted that the patient was just sleepy and sedated and not postictal as she is able to answer all the question properly but she goes back to sleep She added that she went to sleep at 1 AM and apparently woke up with a black vision in both eyes, from my assessment I do not think that the patient had any absence seizure because she is not able to wake up for more than few seconds, they mentioned the EMS they had to keep waking her up The patient takes multiple medication that all are sedating between Celexa Invega Seroquel and tizanidine in addition to Brexipiprazole . The patient also was found to have elevated blood sugar above 500 There is no anion gap but the patient was started on IV fluids as well as IV insulin 10 units of regular insulin The patient presentation initially discussed with the stroke team they requested a CAT scan angio of the head and neck but the patient have allergy to contrast, according to her she had a contrast induced acute kidney injury and she refused to have a CAT scan with contrast I did explain to the stroke the current evaluation and they recommended consult with neurology-----Dr Steinberg recommended that the patient get an MRI the patient will be transferred to [facility] for further evaluation Patient agreeable of the transfer Lab Data Labs: Lab Results 12/02/24 12/02/24 12/02/24 Range/Units 15:31 15:57 16:17 WBC 5.9 (4.0-11.0) 10^3/uL RBC 3.96 L (4.20-5.40) 10^6/uL Hgb 12.3 (12.0-16.0) g/dL Hct 34.8 L (36.0-48.0) % MCV 87.9 (81.0-99.0) fL MCH 31.1 (26.7-34.0) pg MCHC 35.3 H (29.9-35.2) g/dL RDW 12.2 (11.0-15.0) % Plt Count 241 (150-450) 10^3/uL MPV 9.6 (9.5-13.5) fL Neut % (Auto) 65.3 (43.0-75.0) % Lymph % (Auto) 24.5 (20.5-60.0) % Talbot % (Auto) 6.1 (1.7-12.0) % Eos % (Auto) 2.7 (0.9-7.0) % Baso % (Auto) 0.9 (0.2-2.0) % Neut # (Auto) 3.8 (1.4-6.5) 10^3/uL Lymph # (Auto) 1.4 (1.2-3.8) 10^3/uL Talbot # (Auto) 0.4 (0.3-0.8) 10^3/uL Eos # (Auto) 0.2 (0.0-0.7) 10^3/uL Baso # (Auto) 0.1 (0.0-0.1) 10^3/uL Abs Immat Gran (auto) 0.03 (0.00-0.03) 10^3/uL Imm/Tot Granulo (auto) 0.5 (0.0-0.5) % PT 10.2 (9.0-11.6) sec INR 0.96 VBG pH 7.364 (7.330-7.430) VBG pCO2 37.5 L (40.0-52.0) mmHg Sodium 135 L (136-145) mmol/L Potassium 4.3 (3.5-5.1) mmol/L Chloride 100 (98-107) mmol/L Carbon Dioxide 23.5 (21.0-32.0) mmol/L Anion Gap 15.8 BUN 21.0 H (7.0-18.0) mg/dL Creatinine 1.40 H (0.55-1.02) mg/dL Est GFR ( Amer) 49 L (>=60 mL/min/1.73m^2) Est GFR (Non-Af Amer) 40 L (>=60 mL/min/1.73m^2) BUN/Creatinine Ratio 15.0 Glucose 560 H* (74-106) mg/dL Lactate 1.7 (0.4-2.0) mmol/L Calcium 8.7 (8.5-10.1) mg/dL Magnesium 1.7 L (1.8-2.4) mg/dL Total Bilirubin 0.6 (0.2-1.0) mg/dL AST 10 L (15-37) U/L ALT 18 (14-59) U/L Alkaline Phosphatase 121 H (46-116) U/L Total Protein 6.4 (6.4-8.2) g/dL Albumin 2.9 L (3.4-5.0) g/dL Globulin 3.5 g/dL Albumin/Globulin Ratio 0.8 POC Glucose 534 H* (74-106) mg/dL 07// Range/Units 18:07 WBC (4.0-11.0) 10^3/uL RBC (4.20-5.40) 10^6/uL Hgb (12.0-16.0) g/dL Hct (36.0-48.0) % MCV (81.0-99.0) fL MCH (26.7-34.0) pg MCHC (29.9-35.2) g/dL RDW (11.0-15.0) % Plt Count (150-450) 10^3/uL MPV (9.5-13.5) fL Neut % (Auto) (43.0-75.0) % Lymph % (Auto) (20.5-60.0) % Talbot % (Auto) (1.7-12.0) % Eos % (Auto) (0.9-7.0) % Baso % (Auto) (0.2-2.0) % Neut # (Auto) (1.4-6.5) 10^3/uL Lymph # (Auto) (1.2-3.8) 10^3/uL Talbot # (Auto) (0.3-0.8) 10^3/uL Eos # (Auto) (0.0-0.7) 10^3/uL Baso # (Auto) (0.0-0.1) 10^3/uL Abs Immat Gran (auto) (0.00-0.03) 10^3/uL Imm/Tot Granulo (auto) (0.0-0.5) % PT (9.0-11.6) sec INR VBG pH (7.330-7.430) VBG pCO2 (40.0-52.0) mmHg Sodium (136-145) mmol/L Potassium (3.5-5.1) mmol/L Chloride (98-107) mmol/L Carbon Dioxide (21.0-32.0) mmol/L Anion Gap BUN (7.0-18.0) mg/dL Creatinine (0.55-1.02) mg/dL Est GFR ( Amer) (>=60 mL/min/1.73m^2) Est GFR (Non-Af Amer) (>=60 mL/min/1.73m^2) BUN/Creatinine Ratio Glucose (74-106) mg/dL Lactate (0.4-2.0) mmol/L Calcium (8.5-10.1) mg/dL Magnesium (1.8-2.4) mg/dL Total Bilirubin (0.2-1.0) mg/dL AST (15-37) U/L ALT (14-59) U/L Alkaline Phosphatase (46-116) U/L Total Protein (6.4-8.2) g/dL Albumin (3.4-5.0) g/dL Globulin g/dL Albumin/Globulin Ratio POC Glucose 355 H (74-106) mg/dL Discharge Plan Discharge Chief Complaint: Altered Mental Status Clinical Impression: AMS (altered mental status), Hyperglycemia, Loss of vision, Drug interaction Patient Disposition: [facility]
--- OUTSIDE RECORDS SUMMARY | 2024-12-02 15:44 | XMS_ITS | Continuity of Care Document ---
Author Organization [facility]. Address [address] [place] [id number] Phone [phone] Care Team Providers Care Problem Manager Name Role Phone Tona Nielsen PA-C Care Team Information Re ceiver [phone] Family History Date Family Member(s) Observation Comments Father Diabetes Father Hypertension Father Diabetes Mellitus Type 2 Mother Seizure Disorder Social History Type Date Description Comments Sex Female ETOH Use Never used alcohol Tobacco Use Start: Unknown Patient is a cur rent smoker, smokes every day Vaping Recreational Drug Use Never Used Drugs Results Test Acquired Date Facility Test Result H/L Range N ote .Renal Panel 04/29/2024 [facility] [phone] .Albumin 3.2 .Calcium 8.5 .Carbon Dioxide 23 .Chloride 104 .Phosphorus 4.0 .Potassium 4.5 .Sodium 137 .BUN 30 .GFR 37 .Creatinine-LC 1.73 .CBC W/O Differential 04/29/2024 [facility] [phone] .Hematocrit 29.3 .Hemoglobin Blood 9.6 .Platelet Count Blood 289 .Red Blood Count 3.10 RDW 13.4 .White Blood Count 6.78 MCH (Corpuscular Hemoglobin) 31.0 MCHC (Corpuscular Hemog Conc) 32.8 MPV 9.7 MCV (Corpuscular Volume) 94.5 .Renal Panel 04/04/2024 [facility] [phone] .Albumin 3.2 .Calcium 8.4 .Carbon Dioxide 28 .Chloride 105 .Phosphorus 3.8 .Potassium 4.0 .Sodium 141 .BUN 20 .GFR 50 .Creatinine-LC 1.34 .CBC W/O Differential 04/04/2024 [facility] [phone] .Hematocrit 26.7 .Hemoglobin Blood 8.9 .Platelet Count Blood 256 .Red Blood Count 2.86 RDW 13.1 .White Blood Count 7.11 MCH (Corpuscular Hemoglobin) 31.1 MCHC (Corpuscular Hemog Conc) 33.3 MPV 9.6 MCV (Corpuscular Volume) 93.4 .Renal Panel 03/29/2024 [facility] [phone] .Albumin 3.0 .Calcium 8.7 .Carbon Dioxide 20 .Chloride 108 .Phosphorus 4.1 .Potassium 4.8 .Sodium 137 .BUN 36 .GFR 28 .Creatinine-LC 2.19 .CBC W/O Differential 03/29/2024 [facility] [phone] .Hematocrit 28.0 .Hemoglobin Blood 8.8 .Platelet Count Blood 264 .Red Blood Count 2.88 RDW 13.1 .White Blood Count 7.18 MCH (Corpuscular Hemoglobin) 30.6 MCHC (Corpuscular Hemog Conc) 31.4 MPV 9.5 MCV (Corpuscular Volume) 97.2 Assessments Date Code Description Provider 04/01/2024 N17.9 Acute kidney failure, unspec ified Misha Serrato M.D. 04/01/2024 N18.30 Chronic kidney disease, stag e 3 unspecified Misha Serrato M.D. 04/01/2024 I10 Essential (primary) sonia Serrato M.D. 04/01/2024 E11.22 Type 2 diabetes mellitus with diabetic chronic kidney disease Misha Serrato M.D. 03/31/2024 N17.9 Acute kidney failure, unspec ified Misha Serrato M.D. 03/31/2024 N18.30 Chronic kidney disease, stag e 3 unspecified Misha Serrato M.D. 03/31/2024 I10 Essential (primary) sonia Serrato M.D. 03/31/2024 E11.22 Type 2 diabetes mellitus with diabetic chronic kidney disease Misha Serrato M.D. 03/30/2024 N17.9 Acute kidney failure, unspec ified Misha Serrato M.D. 03/30/2024 N18.30 Chronic kidney disease, stag e 3 unspecified Misha Serrato M.D. 03/30/2024 I10 Essential (primary) sonia Serrato, M.D. 03/30/2024 E11.22 Type 2 diabetes mellitus with diabetic chronic kidney disease Misha Serrato M.D. 03/29/2024 N17.9 Acute kidney failure, unspec ified Misha Serrato M.D. 03/29/2024 N18.30 Chronic kidney disease, stag e 3 unspecified Misha Serrato M.D. 03/29/2024 I10 Essential (primary) brunoanai minesh Serrato M.D. 03/29/2024 E11.22 Type 2 diabetes mellitus with diabetic chronic kidney disease Misha Serrato M.D. 03/28/2024 N17.9 Acute kidney failure, unspec ified Misha Serrato M.D. 03/28/2024 N18.30 Chronic kidney disease, stag e 3 unspecified Misha Serrato M.D. 03/28/2024 I10 Essential (primary) brunoanai minesh Serrato M.D. 03/28/2024 E11.22 Type 2 diabetes mellitus with diabetic chronic kidney disease Misha Serrato M.D. 03/27/2024 N17.9 Acute kidney failure, unspec ified Misha Serrato M.D. 03/27/2024 N18.30 Chronic kidney disease, stag e 3 unspecified Misha Serrato M.D. 03/27/2024 I10 Essential (primary) brunoanai minesh Serrato M.D. 03/27/2024 E11.22 Type 2 diabetes mellitus with diabetic chronic kidney disease Misha Serrato M.D. 01/17/2024 N17.9 Acute kidney failure, unspec ified Gino Smith MD 01/17/2024 N18.30 Chronic kidney disease, stag e 3 unspecified Gino Smith MD 01/17/2024 E11.22 Type 2 diabetes mellitus with diabetic chronic kidney disease Gino Smith MD 01/17/2024 I10 Essential (primary) sonia Smith MD 01/16/2024 N17.9 Acute kidney failure, unspec ified Gino Smith MD 01/16/2024 N18.30 Chronic kidney disease, stag e 3 unspecified Gino Smith MD 01/16/2024 E11.22 Type 2 diabetes mellitus with diabetic chronic kidney disease Gino Smith MD 01/16/2024 I10 Essential (primary) hyperten minesh Gino Smith MD
--- OUTSIDE RECORDS SUMMARY | 2024-12-02 15:44 | XMS_ITS | Patient Health Record ---
Author Organization [facility] Address [address] [place] [address] Care Team Providers Care Vascular Tech Name Role Phone Enrique Hebert Primary Care Provider [facility], [facility] Un[facility] Unavailable Mario Castillo Unavailable [phone] Reason For Referral No Information Encounters Encounter Location Date Provider Diagnosis [facility] [address] [place] [address] 03/15/2024 Mario Castillo Plan Of Treatment Next Appt Details Provider Name:Mario rockwell, 03/14/2025 01:30:00 PM, [address] [place] [address] [address], [address] [address], [place], [address], Insurance Providers Payer Name Payer Address Payer Phone Subscriber Number Group Number Insured Name Patient Relationship to Insured Coverage Start Date Coverage End Date [employer] [place] [address] [place] [address] [id number] ORGAN, ADDIE Self - patient is the insured [employer] [place] [address] [place] [address] [id number] ORGAN, ADDIE Self - patient is the insured 4
--- OUTSIDE RECORDS SUMMARY | 2024-12-02 15:44 | XMS_ITS | Clinical Summary ---
Author Organization [facility] Address [address] [place] [address] Care Team Providers Care Journeyman Operator Assistant Name Role Phone George Rob DO Primary Care Provider ElisabetSoto bonner Ethan Unavailable Allergies Active Allergy Reactions Criticality Noted Date Comments Adhesive Tape (Rosins) Itching 07/17/2017 Codeine Rash 07/17/2017 Propoxyphene N-Acetaminophen GI Upset 018 Dye Contraindication-Med ical Surgical 07/17/2017 Latex Rash 07/17/2017 Ketorolac Tromethamine Rash 07/17/2017 Tramadol Rash 07/17/2017 Vancomycin Contraindication-Med ical Surgical 07/17/2017 Medications aspirin 81 mg chewable tablet Take 81 mg by mouth. 7 Active atorvastatin (LIPITOR) 20 mg tablet Take 20 mg by mouth once daily. 7 Active levETIRAcetam (KEPPRA) 1,000 mg tablet Take 1,000 mg by mouth. 5 Active lithium carbonate (ESKALITH) 300 mg capsule 300mg in AM and 600mg QHS 7 Active LYRICA 100 mg capsule Take by mouth once daily. 5 8 Active metFORMIN (GLUCOPHAGE) 1,000 mg tablet Take 1,000 mg by mouth. 7 Active omeprazole (PRILOSEC) 20 mg capsule Take 40 mg by mouth. Active QUEtiapine XR (SEROQUEL XR) 50 mg Tb24 Take 50 mg by mouth. Active insulin lispro (HUMALOG) 100 unit/mL injection - dose 12 units per meal, can do 6 units if having a smaller meal - also dose before meals and at bedtime for BG >150: 151-200 = 2 units 201-250 = 4 units 251-300 = 6 units 301-350 = 8 units 351-400 = 10 units 7 Active insulin lispro (HUMALOG) 100 unit/mL injection by SUBDERMAL route. Active insulin glargine (LANTUS) 100 unit/mL injection by SUBDERMAL route. Active insulin glargine (LANTUS SOLOSTAR, BASAGLAR) 100 unit/mL (3 mL) inpn 48 Units by SUBDERMAL route. 7 Active metoprolol tartrate, short acting, (LOPRESSOR) 25 mg tablet Take 25 mg by mouth. Active lisinopril (ZESTRIL, PRINIVIL) 5 mg tablet Take 5 mg by mouth. Active nortriptyline (PAMELOR) 25 mg capsule Take 25 mg by mouth daily at bedtime. Active rOPINIRole (REQUIP) 2 mg tablet Take 2 mg by mouth daily at bedtime. Active zonisamide (ZONEGRAN) 100 mg capsule Take by mouth once daily. Active Active Problems Problem Noted Date Diagnosed Date Sinus bradycardia 07/17/2017 S/P cardiac pacemaker procedure 07/17/2017 Controlled type 2 diabetes m ellitus without complication, with long-term current use of insulin 07/17/2017 Essential hypertension 07/17/2017 Hyperlipidemia 07/17/2017 Family History Medical History Relation Comments Diabetes Father Heart Father CABG x3 Hypertension Father Stroke Father Cancer Mother Thyroid Seizures Mother Relation Status Comments Father Mother Social History Tobacco Use Types Packs/Day Years Used Date Smoking Tobacco: Former Cigarettes 1 24 1 06/16/1992 - 04/16/2017 Smokeless Tobacco: Never Alcohol Use Standard Drinks/Week Comments No 0 (1 standard drink = 0.6 oz pur e alcohol) Area Deprivation Index Answer Date Johnnie rded National Score (1-100), lower number is lower ri sk Not on file 04/29/2020 State Score (1-10), lower number is lower risk N ot on file 04/29/2020 Data from: https://www.neighborhoodatlas.medicine.[facility].edu/. Last address used for calculation Not on file 04/29/2020 Comments Unknown Sex and Gender Information Value Date Recorded Sex Assigned at Not on file Legal Sex Female 1:58 PM EDT Gender Identity Not on file Sexual Orientation Not on file Last Filed Vital Signs Vital Sign Reading Time Taken Comments Blood Pressure 134/88 07/17/2017 9:20 AM EST Pulse 96 07/17/2017 9:20 AM EST Temperature - - Respiratory Rate 18 07/17/2017 9:20 AM EST Oxygen Saturation 96% 07/17/2017 9:20 AM EST Inhaled Oxygen Concentration - - Weight 88.9 kg (196 lb) 07/17/2017 9:20 AM EST Height 157.5 cm (5' 2 ) 07/17/2017 9:20 AM EST Body Mass Index 35.85 07/17/2017 9:20 AM EST Plan of Treatment Health Maintenance Due Date Last Done Comments Anxiety Screening 1995 Depression Screening 1995 HIV Screening 1995 Hepatitis C Screening 1995 DTaP,Tdap,Td Vaccine (1 - Tdap) 1996 Hepatitis B Vaccine (1 of 3 - 19+ 3-dose series) 04/18 Cervical Cancer Screening [address] Colonography 2022 Cologuard (FIT-DNA) 2022 Colonoscopy 2022 Colorectal Cancer Screening 2022 Diabetes Screening 2022 Fecal Occult Blood 2022 Lipid Screening 2022 Sigmoidoscopy 2022 Covid-19 Vaccine ( - season) 2024 Influenza Vaccine (#1) 2025 Insurance [facility] MEDICAID Care Teams Journeyman Operator Assistant Relationship Specialty Start Date End Date George Rob DO PCP - General Family Medicine 12/13/14 Soto Steiner [address] [place] [address] Physician Podiatry 07/17/17
--- OUTSIDE RECORDS SUMMARY | 2024-12-02 15:45 | XMS_ITS | Encounter Summary ---
Author Organization [facility] Address [facility] [place] [address] Care Team Providers Care Jitterbug Operator Name Role Phone Enrique Hebert DO Primary Care Provider [phone] No, Physician Primary Care Provider Unavailabl Marcia Espinoza RN Unavailable Unavailable Marcia Reynoso RN Unavailable Unavailable Marcia Reynoso RN Unavailable Unavailable Marcia Reynoso RN Unavailable Unavailable Marcia Reynoso RN Unavailable Unavailable Marcia Reynoso RN Unavailable Unavailable Marcia Reynoso RN Unavailable Unavailable Swapnil Hooks Unavailable Unavailable Radha Davalos RD Unavailable Unavailable Tona Nielsen PA-C Primary Care Provider [phone] Encounter Details Date Type Department Care Team (Late st Contact Info) Description 03/31/2023 [facility] [address] [place], [place] [id number] Danii Rincon, RN MSN Social History Tobacco Use Types Packs/Day Years Used Date Smoking Tobacco: Every Day Cigarettes 1 18 Started: 09/30/2014 Smokeless Tobacco: Never Alcohol Use Standard Drinks/Week Comments No 0 (1 standard drink = 0.6 oz pur e alcohol) OASIS A1250: Transportation Answer Date Recorded Lack of Transportation (Medical) No 04/01/2023 Lack of Transportation (Non-Medical) No 04/01/2023 Patient Unable or Declines to Respond No 04/01/2023 Overall Financial Resource Strain (CARDIA) Answe r Date Recorded How hard is it for you to pa y for the very basics like food, housing, medical care, and heating? Hard 01/14/2023 PHQ-2 Answer Date Recorded PHQ-2 Total Score 0 06/05/2020 Housing Stability Vital Sign Answer Chacorta e Recorded In the last 12 months, was t here a time when you were not able to pay the mortgage or rent on time? Yes 01/14/2023 [address] of [address] Lived in the Last Year Not on f ile 01/14/2023 In the last 12 months, was t here a time when you did not have a steady place to sleep or slept in a correction (including now)? Yes 01/14/2023 Comments No Sex and Gender Information Value Date Recorded Sex Assigned at Not on file Legal Sex Female 3:26 PM EDT Gender Identity Female 06/03/2020 5:59 PM EST Sexual Orientation Straight 06/03/2020 5: 59 PM EST documented as of this encounter Miscellaneous Notes * Quick Note - Danii Rincon RN MSN - 03/31/2023 10:44 AM EST [facility] agency: Accepted or Pending Name of agency: (if [facility], include region) [facility] can accept. [facility] created for the following services: [or waiting for ____ (i.e wound care)] Yes, SN/PT/OT/aide Verify the demographics (residential address) [address] [place] [address] What is the primary number to reach you? [phone] Who is your family physician/primary care physician? [phone]: call from Rafaela/PCP office stating Dr. Hebert will follow orders. Do you have a caregiver and/or teachable caregiver (list relationship, name & phone #)? Shi Jean Baptiste (Mother) [phone] (Home Phone) Has the patient been added to capacity board/tracking sheet? ([facility] only) [place] without limitations Estimated Discharge Date (KUNAL): 03/30 documented in this encounter Plan of Treatment Upcoming Encounters Date Type Department Care Team ([facility] st Contact Info) Description 12/21/2024 10:40 AM EDT Office Visit [facility] Pain Management [place] [address] [place] [address] Mihai Banerjee CNP [address] [place] [address] documented as of this encounter Visit Diagnoses Not on filedocumented in this encounter Additional Health Concerns Infection Onset Date Last Indicated Resolved Time COVID-19 Suspected 04/26/2023 04/26/2023 3 6:24 PM EST COVID-19 Suspected 06/18/2023 06/18/2023 4 9:04 PM EST COVID-19 Suspected 07/31/2023 07/31/2023 4 4:25 PM EST COVID-19 Suspected 12/01/2023 12/01/2023 4 3:52 PM EDT C.Difficile Suspected 03/22/2024 03/22/20242023 8:10 PM EDT C.Difficile Suspected 03/30/2024 03/30/20242023 8:10 PM EST Assessment Noted Time PHQ-2 Depression Total Score: 0 06/05/19 8:50 AM EST documented as of this encounter Care Teams Jitterbug Operator Relationship Specialty Start Date End Date Enrique Hebert DO [address] [place] [address] PCP - General Primary Care 03/30/23 04/29/23 No, Physician [facility] PCP - General 04/30/23 05/05/23 Tona Nielsen PA-C [address] [place] [address] PCP - General Internal Medicine 05/06/23 11/14/24 Marcia Reynoso, floor plan adjusterNight Time Babysitter 05/14/23 06/23/23 Marcia Reynoso, floor plan adjusterNight Time Babysitter 07/09/23 07/13/23 Marcia Reynoso, floor plan adjusterNight Time Babysitter 07/24/23 07/28/23 Marcia Reynoso, floor plan adjusterNight Time Babysitter 07/30/23 08/05/23 Marcia Reynoso, floor plan adjusterNight Time Babysitter 09/21/23 09/23/23 Marcia Reynoso, floor plan adjusterNight Time Babysitter 09/29/23 10/01/23 Marcia Reynoso, floor plan adjusterNight Time Babysitter 10/16/23 10/21/23 Swapnil Hooks Community Health Worker Case Management 01/27/2403/10 Radha Davalos, JULI Dietitian Dietitian/Nutritionis t 02/04/24 02/16/24 documented as of this encounter
--- OUTSIDE RECORDS SUMMARY | 2024-12-02 15:45 | XMS_ITS | Encounter Summary ---
Author Organization [facility] Address [address] [place] [address] Care Team Providers Care Environmental Services Manager Name Role Phone Tona Nielsen PA-C Primary Care Provider [phone] Encounter Details Date Type Department Care Team (Late st Contact Info) Description 09/23/2024 Results Follow-Up [facility] Emergency Department [address] [place] [address] Kiley Hanley, RN Levetiracetam Level Social History Tobacco Use Types Packs/Day Years Used Date Smoking Tobacco: Former Cigarettes 1 19 S tarted: 09/30/2014 Passive Smoke Exposure: Current Smokeless Tobacco: Never Comments:Vaping 6 mg nicotin e Alcohol Use Standard Drinks/Week Comments No 0 (1 standard drink = 0.6 oz pur e alcohol) OASIS A1250: Transportation Answer Date Recorded Lack of Transportation (Medical) No 04/22/2023 Lack of Transportation (Non-Medical) No 04/22/2023 Patient Unable or Declines to Respond No 04/22/2023 [facility] Utilities Answer Date Recorded In the past 12 months has [employer], gas, oil, or water company threatened to shut off services in your home? No 04/27/2024 Humiliation, Afraid, Rape, and Kick questionnair e Answer Date Recorded Within the last year, have y ou been afraid of your partner or ex-partner? No 04/27/2024 Within the last year, have y ou been humiliated or emotionally abused in other ways by your partner or ex-partner? No Within the last year, have y ou been kicked, hit, slapped, or otherwise physically hurt by your partner or ex-partner? No 04/27/2024 Within the last year, have y ou been raped or forced to have any kind of sexual activity by your partner or ex-partner? No 04/27/2024 Overall Financial Resource Strain (CARDIA) Answe r Date Recorded How hard is it for you to pa y for the very basics like food, housing, medical care, and heating? Somewhat hard 01/13/2024 PHQ-2 Answer Date Recorded PHQ-2 Total Score 0 03/29/2024 Hunger Vital Sign Answer Date Recorded Within the past 12 months, y ou worried that your food would run out before you got the money to buy more. Never true 04/27/20 24 Within the past 12 months, t he food you bought just didn't last and you didn't have money to get more. Never true 04/27/2024 PRAPARE - Transportation Answer Date Re corded In the past 12 months, has l ack of transportation kept you from medical appointments or from getting medications? No 08/2023 In the past 12 months, has l ack of transportation kept you from meetings, work, or from getting things needed for daily living? No 04/27/2024 Housing Stability Vital Sign Answer Chacorta e Recorded In the last 12 months, was t here a time when you were not able to pay the mortgage or rent on time? Yes 05/11/2023 Number of Places Lived in the Last Year Not on f ile 05/11/2023 In the last 12 months, was t here a time when you did not have a steady place to sleep or slept in a snf (including now)? Yes 05/11/2023 Housing Stability Vital Sign Answer Chacorta e Recorded In the last 12 months, was t here a time when you were not able to pay the mortgage or rent on time? No 04/27/2024 In the past 12 months, how m any times have you moved where you were living? 1 04/27/2024 At any time in the [facility] were you homeless or living in a snf (including now)? No 04/27/2024 Comments No Sex and Gender Information Value Date Recorded Sex Assigned at Not on file Legal Sex Female 3:26 PM EDT Gender Identity Female 06/03/2020 5:59 PM EST Sexual Orientation Straight 06/03/2020 5: 59 PM EST documented as of this encounter Plan of Treatment Upcoming Encounters Date Type Department Care Team (Late st Contact Info) Description 12/21/2024 10:40 AM EDT Office Visit [facility] Pain Management [place] [address] [place] [address] Mihai Banerjee, BEATRIZ [address] [place] [address] documented as of this encounter Visit Diagnoses Not on filedocumented in this encounter Additional Health Concerns Assessment Noted Time PHQ-2 Depression Total Score: 0 03/29/20 24 7:45 AM EST documented as of this encounter Care Teams Environmental Services Manager Relationship Specialty Start Date End Date Tona Nielsen PA-C [address] [place] [address] PCP - General Internal Medicine 05/06/23 11/14/24 documented as of this encounter
--- OUTSIDE RECORDS SUMMARY | 2024-12-02 15:45 | XMS_ITS | Encounter Summary ---
Author Organization [facility] enter Address [address] [place] [address] Care Team Providers Care Billiard Table Repairer Name Role Phone Cherelle Fierro MD Unavailable [phone] Geo Leach MD Primary Care Provider [phone] George Rob DO Unavailable Unavailable Encounter Details Date Type Department Care Team (Late st Contact Info) Description 02/02/2017 Orders Only Cardiovascular Imaging Lab [facility] [address] [place] [phone] Sushila Armendariz RN SSS (sick sinus syndrome) (HCC) (Primary Dx) Social History Tobacco Use Types Packs/Day Years Used Date Smoking Tobacco: Former Cigarettes 0.5 15 0 11/22/1996 - 11/23/2011 Smokeless Tobacco: Never Alcohol Use Standard Drinks/Week Comments No 0 (1 standard drink = 0.6 oz pur e alcohol) Comments No Sex and Gender Information Value Date Recorded Sex Assigned at Not on file Legal Sex Female 6:28 AM EST Gender Identity Female Sexual Orientation Not on file documented as of this encounter Plan of Treatment Upcoming Encounters Date Type Department Care Team (Late st Contact Info) Description 03/03/2025 8:00 AM EDT Office Visit Inside Sales Account Representative [facility] [address] [place] [address] Goe Leach MD [address] [place] [phone] Scheduled Orders Name Type Priority Associated Diagnoses Orde r Schedule CHEM 7 (LYTES,BUN,CREA,GLUC) Lab Routine SSS (sick sinus syndrome) ([facility]) Expected: 02/02/2017, Expires: 02/02/2018 CBC,PLATELETS Lab Routine SSS (sick sinus syndrome) ([facility]) Expected: 02/02/2017, Expires: 02/02/2018 PROTIME-INR Lab Routine SSS (sick sinus syndrome) ([facility]) Expected: 02/02/2017, Expires: 02/02/2018 TYPE AND CROSS - PREADMISSION Blood Bank Routine SSS (sick sinus syndrome) ([facility]) Expected: 02/02/2017, Expires: 02/02/2018 documented as of this encounter Visit Diagnoses Diagnosis SSS (sick sinus syndrome)- Primary Sinoatrial node dysfunction documented in this encounter Care Teams Billiard Table Repairer Relationship Specialty Start Date End Date Geo Leach MD [address] [place] [address] PCP - General Clinical Cardiac Electrophysiology 09/23/16 Cherelle Fierro MD [address] [place] [address], [address] [address] Family Medicine 01/30/12 George Rob, [address] [place] [address] Consulting Physician Family Medicine 03/20/17 documented as of this encounter
--- OUTSIDE RECORDS SUMMARY | 2024-12-02 15:45 | XMS_ITS | Encounter Summary ---
Author Organization [facility] Address [facility] [place] [address] Care Team Providers Care Finishing Operator Name Role Phone Unavailable Primary Care Provider Unavailabl e Reason for Visit * Reason Onset Date Comments Medication Refill 11/21/2024 Encounter Details Date Type Department Care Team (Late st Contact Info) Description 11/21/2024 Refill [facility] Pain Management [place] [address] [place] [address] Morgan Velez, [address] [place] [address] DDD (degenerative disc disease), lumbar; Lumbar radiculopathy; Chronic pain syndrome Social History Tobacco Use Types Packs/Day Years [...] Unable or Declines to Respond No 04/22/2023 [facility] Utilities Answer Date Recorded In the past 12 months has e electric, gas, oil, or water company threatened to [...] any time in the past 12 m [facility], were you homeless or living in a snf (including now)? No 04/27/2024 Comments No Sex and Gender Information Value Date Recorded Sex Assigned at Not on file Legal Sex Female 3:26 PM EDT Gender Identity Female 06/03/2020 5:59 PM EST Sexual Orientation Straight 06/03/2020 5: 59 PM EST documented as of this encounter Miscellaneous Notes * Telephone Encounter - Olivia Almonte - 11/21/2024 1:45 PM EDT Adelina 10/24/24 documented in this encounter Plan of Treatment Upcoming Encounters Date Type Department Care Team (Late st Contact Info) Description 12/21/2024 10:40 AM EDT Office Visit [facility] Pain Management [place] [address] [place] [address] Mihai Banerjee, BUSINESS LAW PROFESSOR [address] [place] [address] documented as of this encounter Visit Diagnoses Diagnosis DDD (degenerative disc disease), lumbar Degeneration of lumbar or lumbosacral intervertebral disc Lumbar radiculopathy Thoracic or lumbosacral neuritis or radiculitis, unspecified Chronic pain syndrome documented in this encounter Additional Health Concerns Assessment Noted Time PHQ-2 Depression Total Score: 0 03/29/20 24 7:45 AM EST documented as of this encounter
--- OUTSIDE RECORDS SUMMARY | 2024-12-02 15:45 | XMS_ITS | Patient Health Record ---
Author Organization [facility] [place] Address [address] [place] [address] Care Team Providers Care District Representative Name Role Phone Mario Baum DO Primary Care Provider Juanjo Snow Unavailable [phone] Reason For Referral No Information Problems Problem Type SNOMED Code ICD Code Onset Dates Problem Status W/U Status Risk Notes Problem Peripheral venous insufficiency (01196917) Venous insufficiency (chronic) (peripheral) (I87.2) Active confirmed Problem Chronic ulcer of foot (187559742) Non-pressure chronic ulcer of other part of left foot with fat layer exposed (L97.522) Active confirmed Problem Diabetic peripheral neuropathy (437596169) Diabetic peripheral neuropathy (E11.42) Active confirmed Problem Hypertension (02530248) Hypertension (I10) Active confirmed Problem Anxiety (86533549) Anxiety (F41.9) Active confirmed Problem Type 2 diabetes mellitus (82120576) Type 2 diabetes mellitus (E11.9) Active confirmed Problem Long-term current use of insulin (527581545) Current use of insulin (Z79.4) Active confirmed Encounters Encounter Location Date Provider Diagnosis [facility] [address] [place] [address] [place] [address] 08/09/2024 Juanjo Amaro Plan Of Treatment No Information Insurance Providers Payer Name Payer Address Payer Phone Subscriber Number Group Number Insured Name Patient Relationship to Insured Coverage Start Date Coverage End Date [employer] [place] [employer] [address] [place] [address] [id number] Lisa Jean Baptiste Self - patient is the insured 3
--- OUTSIDE RECORDS SUMMARY | 2024-12-02 15:45 | XMS_ITS | Clinical Summary ---
Author Organization [facility] Address [address] [place] [id number] Care Team Providers Care Commissary Clerk Name Role Phone Unavailable Primary Care Provider Unavailabl e Allergies Active Allergy Reactions Criticality Noted Date Comments Adhesive Itching 07/17/2017 Codeine Medium 02/16/2008 Other reaction(s): Aggressive Behavior Prochlorperazine Other (See Comments) 06/04/2023 She reports Compazine made her feel anxious and grumpy Ct: Iodinated Contrast- Oral And Iv Dye Other (See Comments) 09/06/2018 Shuts my kidneys down Fentanyl 04/11/2019 Ibuprofen Other (See Comments) 06/03/2020 shuts kidney down Iodides Other (See Comments) High 02/16/2017 Renal compromise Ketorolac Hives,Other (See Comments),Rash,GI Intolerance High 10/08/2010 Messes with seizures Unsure of reaction Latex Dermatitis 05/01/2015 Linezolid Nausea And Vomiting,GI Intolerance 08/19/2022 Lorazepam Other (See Comments) 12/08/2021 Nsaids (Non-Steroidal Anti-Inflammatory Drug) 03/30/2017 shuts my kidney's down Propoxyphene GI Intolerance Low 05/25/2015 Propoxyphene N-Acetaminophen GI Intolerance Medium 02/16/2008 Tramadol Hives,Rash,Other (See Comments),GI Intolerance High 12/15/2011 Vancomycin Other (See Comments) 06/03/2020 Shuts kidney down Medications Omnipod Insulin Refill Crtg 04/16/20 20 Active Dexcom G6 Sensor DeviIndications:T ype 2 diabetes mellitus with diabetic polyneuropathy, with long-term current use of insulin (HCC) Use as directed for continuous glucose monitoring change every 10 days . 3 each 12/03/19 24 Active Dexcom G6 Transmitter DeviIndications:T ype 2 diabetes mellitus with diabetic polyneuropathy, with long-term current use of insulin (HCC) Use as directed for continuous glucose monitoring change every 3 months . 1 each 12/03/19 24 Active Dexcom G6 Design Consultant MiscIndications:T ype 2 diabetes mellitus with diabetic polyneuropathy, with long-term current use of insulin (HCC) Use as directed for continuous glucose monitoring . 1 each 12/03/19 24 Active glucagon (Gvoke HypoPen 2-Pack) 1 mg/0.2 mL AtInIndications:T ype 2 diabetes mellitus with diabetic polyneuropathy, with long-term current use of insulin (HCC) Inject 0.2 mL (1 mg total) under the skin as needed . 2 mL 1 12/03/19 24 Active insulin lispro (AdmeLOG,HumaLOG) 100 unit/mL injectionIndicati ons:Type 2 diabetes mellitus with diabetic polyneuropathy, with long-term current use of insulin ([facility]) Inject up to 150 units once daily via pump . 50 mL 12/08/19 24 Active busPIRone (BUSPAR) 30 MG tablet Take 1 (one) tablet (30 mg total) by mouth 2 (two) times a day . Active blood sugar diagnostic (glucose blood) stripsIndications :Type 2 diabetes mellitus with diabetic polyneuropathy, with long-term current use of insulin (HCC) by Miscellaneous route 3 (three) times a day As a backup to CGM to test blood sugar. One Touch Verio . 100 strip 12/08/19 Active lancets MiscIndications:T ype 2 diabetes mellitus with diabetic polyneuropathy, with long-term current use of insulin (HCC) 1 Lancet by Miscellaneous route 3 (three) times a day . 100 each 12/08/19 Active alcohol swabs PadMIndications:T ype 2 diabetes mellitus with diabetic polyneuropathy, with long-term current use of insulin (HCC) Apply 1 (one) Swab. topically 5 (five) times a day Clean area before administering insulin. . 150 each 5 12/08/19 24 Active miscellaneous medical supply Misc 1 each by Miscellaneous route daily . 100 each 2 12/10/19 24 Active timolol (TIMOPTIC) 0.5 % ophthalmic solution Administer 1 (one) drop into the left eye daily . 12/15/19 24 Active metFORMIN (GLUCOPHAGE) 1000 MG tabletIndications :Diabetic ulcer of right foot associated with type 2 diabetes mellitus, unspecified part of foot, unspecified ulcer stage (HCC) Take 1 (one) tablet (1,000 mg total) by mouth 2 (two) times a day . 60 tablet 5 01/27/20 24 Active Omnipod 5 G6 Pods, Gen 5, Crtg 01/29/20 24 Active lamoTRIgine (LAMICTAL) 25 MG tablet Take 1 (one) tablet (25 mg total) by mouth 2 (two) times a day . 60 tablet 2 02/08/20 24 Active inhalational spacing device inhaler Use as instructed . 1 each 2 03/10/20 24 2024 Active vitamin with Ca-Iron-FA 27-1 mg Tab Take 1 (one) tablet by mouth daily . Active INSULIN PUMP CARTRIDGE SUBQ Inject under the skin Use as directed . Active ondansetron (ZOFRAN-ODT) 4 MG disintegrating tablet Dissolve 1 (one) tablet (4 mg total) on top of tongue every 8 (eight) hours as needed for nausea . 20 tablet 05/26/19 25 Active QUEtiapine (SEROQUEL) 400 MG tabletIndications :Bipolar 1 disorder (HCC),Insomnia, unspecified type Take 2 (two) tablets (800 mg total) by mouth nightly . 60 tablet 05/27/19 25 Active Omnipod 5 G6-G7 Pods, Gen 5, Crtg 06/01/19 25 Active Rexulti 1 mg Tab TAKE 1 TABLET DAILY FOR 7 DAYS, THEN 2 DAILY FOR 7 DAYS AND AFTER IF TOLERATED FOR PSYCHOSIS 06/26/19 25 Active hydrOXYzine (VISTARIL) 50 MG capsule Take 1 (one) capsule (50 mg total) by mouth 3 (three) times a day as needed . 06/26/19 25 Active omeprazole (PRILOSEC) 40 MG capsule Take 1 (one) capsule (40 mg total) by mouth daily . 90 capsule 1 07/15/19 25 Active paliperidone (INVEGA) 6 MG 24 hr tablet Take 1 (one) tablet (6 mg total) by mouth daily . 07/28/19 25 Active citalopram (CELEXA) 40 MG tabletIndications :Bipolar 1 disorder (HCC) Take 1 (one) tablet (40 mg total) by mouth daily . 90 tablet 1 08/03/19 25 Active nortriptyline (PAMELOR) 25 MG capsuleIndication s:Chronic nonintractable headache, unspecified headache type,Insomnia, unspecified type Take 1 (one) capsule (25 mg total) by mouth nightly . 90 capsule 1 08/03/19 25 Active pantoprazole (PROTONIX) 40 MG tabletIndications :Gastroesophageal reflux disease, unspecified whether esophagitis present Take 1 (one) tablet (40 mg total) by mouth daily . 90 tablet 1 08/03/19 25 Active chlorthalidone (HYGROTON) 25 MG tabletIndications :Primary hypertension Take 1 (one) tablet (25 mg total) by mouth daily . 90 tablet 1 08/03/19 25 Active lisinopriL (PRINIVIL,ZESTRIL ) 40 MG tabletIndications :Primary hypertension Take 1 (one) tablet (40 mg total) by mouth daily . 90 tablet 1 08/03/19 25 Active levothyroxine (SYNTHROID, LEVOTHROID) 75 MCG tabletIndications :Hypothyroidism, unspecified type Take 1 (one) tablet (75 mcg total) by mouth once daily . 90 tablet 1 08/03/19 25 Active metoprolol succinate (TOPROL-XL) 50 MG 24 hr tabletIndications :Primary hypertension Take 1 (one) tablet (50 mg total) by mouth daily . 90 tablet 1 08/03/19 25 2024 Active loratadine (CLARITIN) 10 mg tablet Take 1 (one) tablet (10 mg total) by mouth daily . 90 tablet 1 08/03/19 25 Active traZODone (DESYREL) 100 MG tabletIndications :Insomnia, unspecified type Take 1 (one) tablet (100 mg total) by mouth nightly as needed for sleep . 90 tablet 1 08/03/19 25 Active albuterol (PROVENTIL) 2.5 mg /3 mL (0.083 %) nebulizer solutionIndicatio ns:Chronic obstructive pulmonary disease, unspecified COPD type (HCC) Take 3 mL (2.5 mg total) by nebulization every 6 (six) hours as needed for wheezing or shortness of breath . 75 mL 3 08/03/19 25 Active albuterol 90 mcg/actuation inhalerIndication s:Chronic obstructive pulmonary disease, unspecified COPD type (HCC) Inhale 1 (one) puff every 4 to 6 hours as needed for shortness of breath or wheezing . 18 g 3 08/03/19 25 Active polyethylene glycol (MIRALAX) 17 gram powder Take 17 (seventeen) g by mouth daily as needed (constipation) . 100 packet 1 08/03/19 25 Active zinc oxide-white petrolatum 17-57 % Pste Apply 1 Application topically daily . 113 g 2 08/03/19 25 Active atorvastatin (LIPITOR) 80 MG tablet Take 1 (one) tablet (80 mg total) by mouth daily . 90 tablet 1 08/06/19 25 Active oxyCODONE-acetami nophen (PERCOCET) 5-325 mg per tabletIndications :Chronic pain syndrome Take 1 (one) tablet by mouth 2 (two) times a day as needed for pain . 60 tablet 08/20/19 25 Active levETIRAcetam (KEPPRA) 1000 MG tablet Take 1 (one) tablet (1,000 mg total) by mouth 2 (two) times a day . 60 tablet 09/23/19 25 Active pregabalin (LYRICA) 75 MG capsuleIndication s:DDD (degenerative disc disease), lumbar,Lumbar radiculopathy Take 1 (one) capsule (75 mg total) by mouth 2 (two) times a day (Days supply per fill: 30) . 60 capsule 11/22/19 25 2024 Active tiZANidine (Zanaflex) 4 MG tabletIndications :DDD (degenerative disc disease), lumbar Take 2 tabs p.o. nightly . 60 tablet 3 11/22/19 25 Active oxyCODONE-acetami nophen (PERCOCET) 5-325 mg per tabletIndications :Chronic pain syndrome Take 1 (one) tablet by mouth 3 (three) times a day as needed for pain (Days supply per fill: 30) . 90 tablet 11/22/19 25 2024 Active pregabalin (LYRICA) 75 MG capsuleIndication s:DDD (degenerative disc disease), lumbar,Lumbar radiculopathy Take 1 (one) capsule (75 mg total) by mouth 2 (two) times a day (Days supply per fill: 30) . 60 capsule 09/24/19 25 2024 Discontinu ed(Reorder (Suppress CancelRx Message to Pharmacy)) tiZANidine (Zanaflex) 4 MG tabletIndications :DDD (degenerative disc disease), lumbar Take 2 tabs p.o. nightly . 60 tablet 3 09/24/19 25 2024 Discontinu ed(Reorder (Suppress CancelRx Message to Pharmacy)) oxyCODONE-acetami nophen (PERCOCET) 5-325 mg per tabletIndications :Chronic pain syndrome Take 1 (one) tablet by mouth 3 (three) times a day as needed for pain (Days supply per fill: 30) . 90 tablet 10/12/19 25 2024 Discontinu ed(Reorder (Suppress CancelRx Message to Pharmacy)) Active Problems Problem Noted Date Diagnosed Date Sick sinus syndrome 07/21/2024 DDD (degenerative disc disease), lumbar 05/13/20 Lumbar radiculopathy 05/13/2024 Other chronic pain 05/13/2024 Myofascial pain syndrome 05/13/2024 Postoperative infection 04/26/2024 Toe osteomyelitis 03/25/2024 Chronic pain of both knees 03/22/2024 Candidiasis of breast 03/22/2024 Abnormal pigmentation of skin 03/22/2024 Hypertensive urgency 02/11/2024 Chronic pain syndrome 02/11/2024 Diabetic ulcer of left great toe 01/12/2024 Retinal hemorrhage 12/10/2023 CKD (chronic kidney disease) 10/13/2023 Urinary incontinence 09/10/2023 Chronic headaches 09/10/2023 Hypercholesterolemia 09/10/2023 Family history of pulmonary fibrosis 09/03/2023 Overview (09/03/2023): Mother Family history of dementia 09/03/2023 Overview (09/03/2023): Mother History of stroke 05/17/2023 Visual loss, left eye 05/17/2023 Left-sided weakness 05/10/2023 Vitamin B12 deficiency 05/08/2023 Vitamin D deficiency 05/08/2023 Cigarette nicotine dependence 05/08/2023 COPD (chronic obstructive pulmonary disease) GERD (gastroesophageal reflux disease) 3 Hypothyroidism 05/06/2023 Diabetic peripheral neuropathy 05/06/2023 Insomnia 05/06/2023 Generalized weakness 05/06/2023 Muscle spasms of both lower extremities 05/06/20 23 Bowel incontinence 05/06/2023 Chronic chest pain 03/29/2023 Type 2 diabetes mellitus wit h diabetic polyneuropathy, with long-term current use of insulin 06/03/2020 Assessment & Plan (06/05/2020 5:32 PM EST): Cellulitis present, but given eschar concern for OM. CT shows no evidence of OM, but will consider MRI as outpatient Reported Hx of MRSA, reported vancomycin intolerance due to renal problems Podiatry consulted, drained abscess and sent wound culture (pending results) PT consulted, patient given postop shoe S/p cefazolin, transitioned to doxycycline PO for discharge Morphine transitioned to Percocet x 5 day PRN S/P placement of cardiac pacemaker 12/01/2014 Assessment & Plan (12/01/2014 9:11 AM EDT): - Pacemaker since age 35 - Placed by Dr. 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 - Follow up with [facility] EP as planned. Hypertension 11/30/2014 Assessment & Plan (06/04/2020 12:44 PM EST): Continue home lopressor Assessment & Plan (12/09/2014 10:15 AM EDT): - her bp meds were held due to low bp during hospital course and was not resumed at time of discharge due to nomotensive blood pressures Bipolar 1 disorder Assessment & Plan (06/04/2020 1:02 PM EST): No evidence of denys at this time Continue home seroquel, buspar, vraylar Seizures Assessment & Plan (06/04/2020 1:16 PM EST): Continue home colette feng Resolved Problems Problem Noted Date Diagnosed Date Resolved Date Encounter for monitoring opi oid maintenance therapy 05/13/2024 08/05/2024 Diabetic foot infection 04/26/202407/23 Abdominal wound dehiscence 03/22/2024 0 08/05/2024 Weight gain 05/17/2023 02/11/2024 Diabetic ulcer of right foot associated with type 2 diabetes mellitus 05/06/2023 02/11/2024 Chest pain, unspecified type 02/18/2023 05/06/2023 Seizure 01/12/2023 05/06/2023 SOLO (acute kidney injury) 12/03/2014 Assessment & Plan (12/06/2014 9:06 AM EDT): Creatinine worsening. Nephrology following. Abx on hold, vancomycin still therapeutic. Assessment & Plan (12/08/2014 1:22 PM EDT): Patient with no history of kidney related disease. Baseline Creatinine per chart review 0.4-0.6. She was at this level on admission but acutely increased to 4.35 on 12/03. Nephrology following, likely multifactorial - Dehydration, Contrast exposure, Vancomycin toxicity. - Creatinine slowly trending down: 6.12 from 6.58 yesterday - UOP continues to improve. She is at 1.3ml/kg/hr this afternoon - Nephrology following -holding all nephrotoxins until renal function goes back to normal. They recommend follow up with PCP as an outpatient. Appreciate recs Assessment & Plan (12/03/2014 2:01 PM EDT): Baseline scr was 0.4-0.6 in the last year. Presented with Scr within her baseline range. Etiology for SOLO appears to be related to Multiple factors: -Dehydration and hemodynamic instability. Her BP has responded decently to IVF so far. I would recommend conitnued IVF boluses to keep SBP > 100mmHg to ensure adequate renal perfusion. - Contrast exposure on 12/01. No further studies with contrast until scr normalized. - Potentially some additional effect from the Vanco given especially in the setting of dehydration. Hold any further doses until trough appropriate ( random currently at 45) Continue serial chem Strict I/O No need for FARM INSTRUCTOR yet. Will continue to watch for signs that FARM INSTRUCTOR is indicated. Will follow along with you closely. Assessment & Plan (12/09/2014 10:19 AM EDT): - Suspect multifactorial related to hypotension, contrast and possible meds (ATB?) - Cr normal at baseline, her creatinine increased to 6.6 and then started to trend down and was 5.5 on day of discharge - nephrology service managed her care while in hospital. Per nephrology it is expected that her creatinine will continue to trend down - nephrology suspected ATN from hypotension, SHAJI, vanco - urine output picking up and creatinine downtrending - optimistic for ongoing renal recovery with time - continue to hold off on resuming SHAJI, NSAIDs and metformin until outpatient followup with her PCP - patient should have her labs checked by her PCP in a few days after discharge to ensure ongoing renal stabilization. Pt plans to have her labs checked on Thursday and Thursday Severe sepsis 12/03/2014 12/07/2014 Assessment & Plan (12/07/2014 8:28 AM EDT): Patient transferred to ICU after developing fever of 100.4 and hypotension with associated increase in creatinine to 5.39 from 0.66 on admission 3 days ago. Likely secondary to MRSA cellulitis on chin. - Following Vanco levels, will resume Dapto once Vancomycin levels are no longer therapeutic with plan for eventual transition to PO abx - Blood pressures stable overnight, afebrile Metabolic acidosis, normal anion gap (NAG) 12/03/2014 05/06/2023 Assessment & Plan (12/07/2014 8:34 AM EDT): Patient found to be acutely acidotic this afternoon with Bicarb of 19. Anion gap 14. Likely secondary to SOLO from hypoperfusion due to sepsis. - Resolved. Transitioned off the bicarb drip yesterday. Bicarb 21 this morning. 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 - would suspect she is a carrier of MRSA - She is noted to have very poorly controlled diabetes, reports last A1c of 11, which is likely contributing to her seemingly easy development of skin infection - encouraged more strict control of DM to help prevent infections. Question if insulin injection sites are one nidus of infection (not the sole cause) as she normally injects on her R arm where she has had most of her infections, ? If proper technique used. - could try daily chlorhexadine baths for 1wk to attempt to de-colonize. Abscess of chin 12/01/2014 05/06/2023 Cellulitis of chin 11/30/2014 3 Assessment & Plan (12/08/2014 1:24 PM EDT): Hx of multiple MRSA positive infections in the past year. This site developed from a comedone on her chin. Currently erythematous and purulent. Past episodes have been in her right arm, where she also injects her insulin. Transferred to ICU with severe sepsis, has since resolved. - ID consulted: recommending total 2 week antibiotic course. Appreciate recs -PO doxycycline day 2 (total antibiotic day 9). -Remains afebrile, WBC 7.21 Assessment & Plan (12/06/2014 9:05 AM EDT): Pt with a 2 day history of chin swelling, erythema and tenderness. Noted to have a hx of recurrent MRSA infections. Was recently on Bactrim for a MRSA infection on her R underarm. CTs 12/01 and 12/03 have not shown defined abscess, although pt with purulent drainage. Exam improved. Plan was to give daptomycin renally dosed when vancomycin subtherapeutic, but given improvement may be able to transition to PO doxycycline in next 24hrs. Assessment & Plan (12/09/2014 10:13 AM EDT): - chin cellulitis - initially was on IV vancomycin then switched to IV daptomycin after she developed renal failure and then she was switched to oral doxycline for 2 weeks at time of discharge per ID service recommendation - She has hx of recurrent MRSA infections And was given Bactroban nasal and hibiclens baths - she was seen by ID service and maxfacial surgery during her hospitilazation Diabetes mellitus type II, uncontrolled 11/30/2014 05/06/2023 Assessment & Plan (06/04/2020 12:44 PM EST): A1c 10.2% On insulin pump Assessment & Plan (12/08/2014 1:27 PM EDT): Pt states she is not always compliant with home insulin regimen. HbA1c 9 on admission. - Continue ISS per primary team - BS better controlled with further decrease in home basal Lantus regimen. Currently 15 U BID. Assessment & Plan (12/09/2014 10:15 AM EDT): - Uncontrolled in setting of acute infection, Hgba1c 9 - her lantus dose was decreased to 15 U BID with good control of sugars on this regimen History of MRSA infection 11/30/2014 Assessment & Plan (12/05/2014 8:11 AM EDT): Pt reports several MRSA infections in the past. Treating current chin infection. Bactroban to nares for 7 days. Can use hibiclens bodywash at home. Uncontrolled DM2 likely risk factor for recurrent infections. Assessment & Plan (12/09/2014 10:13 AM EDT): - Patient recently had a MRSA infection of her right axilla which has resolved, she completed a course of bactrim and keflex - She states she gets recurrent MRSA infections - she received hibiclens baths and bactroban for her nares. Encounters Date Type Department Care Team Description 11/21/2024 Refill [facility] [place] [address] [phone] Morgan Velez DO DDD (degenerative disc disease), lumbar; Lumbar radiculopathy; Chronic pain syndrome 10/11/2024 Orders Only [facility] [place] [address] [place] [phone] Morgan Velez DO 10/06/2024 Refill [facility] [place] [address] Morgan Velez, Chronic pain syndrome 09/29/2024 Documentation [facility] [place] [address] Jay Peralta MA [employer] 09/23/2024 11:26 AM EDT - 09/23/2024 11:59 PM EDT [facility] [address] [place] [address] Nazia Schuler PA-C Discharge Disposition: Home 09/23/2024 10:30 AM EDT Office Visit [facility] [place] [address] Morgan Velez DO Myofascial pain syndrome (Primary Dx); DDD (degenerative disc disease), lumbar; Lumbar radiculopathy; Chronic pain syndrome 09/23/2024 Orders Only [facility] [place] [address] Morgan Velez DO Degeneration of intervertebral disc of lumbar region with discogenic back pain and lower extremity pain (Primary Dx); Lumbar radiculopathy; Chronic pain syndrome 09/23/2024 Refill [facility] [place] [address] Morgan Velez DO Chronic pain syndrome 09/23/2024 Results Follow-Up [facility] Emergency Department [address] [place] [address] Kiley Hanley RN Levetiracetam Level 09/22/2024 2:44 PM EDT - 09/22/2024 5:29 PM EDT Emergency [facility] Emergency Department [address] [place] [address] Mario Pitts MD Discharge Disposition: Home 09/22/2024 Documentation [facility] [address] [place] [address] France Beard PA-C 09/22/2024 Refill [facility] [place] [address] [place] [address] Morgan Velez, Chronic pain syndrome 09/22/2024 Travel 09/18/2024 12:55 PM EDT - 09/18/2024 2:43 PM EDT Emergency [facility] Emergency Department [address] [place] [address] Mario Pitts MD Discharge Disposition: Home 09/18/2024 Travel from Last 3 Months Immunizations Immunization Administration Dates Next Due INFLUENZA IIV3 3YO OR > FLUZONE [id number] 05/06/2023 ,05/06/2023 INFLUENZA IIV4 6MO OR > FLUARIX/FLUZONE/AFLURIA [id number] 05/06/2023,06/05/2020 Influenza Whole 05/28/2015 Influenza, Injectable, Quadr ivalent, Preservative Free 04/09/2022,03/06/2021,05/25/2020,02/22 Influenza, Seasonal, Injectable 03/26/2014 Influenza, Unspecified 06/05/2020,05/28/2015 Moderna SARS-CoV-2 Vaccination 12/02/2020 Pneumococcal Conjugate 20-Va lent (Prevnar 20) 05/06/2023,03/29/2023 Pneumococcal Polysaccharide (Pneumovax 23) 03/06/2021 Tdap 02/21/2022 influenza RIV3 (FLUBLOK) 18 years old or greater - syringe 02/11/2024 Family History Medical History Relation Comments Diabetes Father Diabetes type II Father Hypertension Father Seizures Mother Relation Status Comments Father Mother Social History Tobacco Use Types Packs/Day Years Used Date Smoking Tobacco: Former Cigarettes 1 19 S tarted: 09/30/2014 Passive Smoke Exposure: Current Smokeless Tobacco: Never Tobacco Cessation:Counseling Given: Not Answered Comments:Vaping 6 mg nicotine Alcohol Use Standard Drinks/Week Comments No 0 (1 standard drink = 0.6 oz pur e alcohol) OASIS A1250: Transportation Answer Date Recorded Lack of Transportation (Medical) No 04/22/2023 Lack of Transportation (Non-Medical) No 04/22/2023 Patient Unable or Declines to Respond No 04/22/2023 [facility] Utilities Answer Date Recorded In the past 12 months has th e [employer], gas, oil, or water company threatened to [...] place to sleep or slept in a long-term (including now)? Yes 05/11/2023 Housing Stability Vital Sign Answer Chacorta e Recorded In the last 12 months, was t here a time when you were not able to pay the mortgage or rent on time? No 04/27/2024 In the past 12 months, how m any times have you moved where you were living? 1 04/27/2024 At any time in the past [facility], were you homeless or living in a long-term (including now)? No 04/27/2024 Comments No Sex and Gender Information Value Date Recorded Sex Assigned at Not on file Legal Sex Female 3:26 PM EDT Gender Identity Female 06/03/2020 5:59 PM EST Sexual Orientation Straight 06/03/2020 5: 59 PM EST Last Filed Vital Signs Vital Sign Reading Time Taken Comments Blood Pressure 121/84 09/23/2024 10:55 AM EDT Pulse 110 09/23/2024 10:55 AM EDT Temperature 36.4 C (97.6 F) 09/22/2024 3:10 PM EDT Respiratory Rate 16 09/22/2024 5:08 PM EDT Oxygen Saturation 98% 09/23/2024 10:55 AM EDT Inhaled Oxygen Concentration - - Weight 127 kg (280 lb) 09/18/2024 12:58 PM EDT Height 157.5 cm (5' 2 ) 09/22/2024 2:14 PM EDT Body Mass Index 51.21 09/18/2024 12:58 PM EDT Plan of Treatment Upcoming Encounters Date Type Department Care Team (Late st Contact Info) Description 12/21/2024 10:40 AM EDT Office Visit [facility] Pain Management Velia [address] [place] [phone] Mihai Banerjee, BEATRIZ [address] [place] [address] Health Maintenance Due Date Last Done Comments CT Colonography 1977 Colonoscopy 1977 Colorectal Cancer Screening/Monitoring 1977 Fecal DNA 1977 Fecal occult blood test (FOBT,FIT) 1977 Flexible sigmoidoscopy 1977 Urine (micro)albumin/creatinine ratio - Diabetes 1987 Pap Smear 1998 HPV/Cotest 2007 Mammogram 2017 Wellness Visit 09/02/2024 09/03/2023 Diabetic Eye Exam 11/08/2024 11/09/2023 Diabetic Foot Exam 12/04/2024 12/05/2023, 04/14/2023 A1C 01/01/2025 10/01/2024, 07/23, 03/22/2024, Additional history exists Influenza Vaccine (#1) 2025 , 05/06/2023, 05/06/2023, Additional history exists COVID-19 Vaccine ( season) 2025 02/16/2021, 12/02/2020 Postponed from 01/24/2024 (Treatment Not Available) eGFR Diabetes 03/25/2025 09/22/2024, 09/18/2024, 08/02/2024, Additional history exists Tetanus: Every 10yrs 02/22/2032 02/21/2022 Pneumococcal Vaccine: Ped or At-Risk Completed 05/06/2023, 03/29/2023, 03/06/2021, Additional history exists HIV Screening Completed 08/02/2024 Hepatitis C Screening Completed 08/02/2024 Cervical Cancer Screening Discontinued Procedures Procedure Name Priority Date/Time Associated Diagnosis Comments XR LUMBAR SPINE 2-3 VIEWS (STANDARD) Routine 09/23/2024 11:52 AM EDT Lumbar pain EKG 09/23/2024 5:50 AM EDT MINT GREEN TOP Routine 09/22/2024 3:32 PM EDT LEVETIRACETAM LEVEL Routine 09/22/2024 3 :32 PM EDT DRUGS OF ABUSE SCREEN, URINE STAT 09/22/2024 3:26 PM EDT URINALYSIS STAT 09/22/2024 3:26 PM EDT MORPHOLOGY STAT 09/22/2024 3:11 PM EDT CBC WITH AUTO DIFFERENTIAL STAT 09/22/2024 3:11 PM EDT HEPATIC FUNCTION PANEL STAT 3:11 PM EDT BASIC METABOLIC PANEL STAT 09/22/2024 3:11 PM EDT CBC WITH AUTO DIFFERENTIAL STAT 09/22/2024 3:11 PM EDT LIGHT BLUE TOP STAT 09/22/2024 3:11 PM EDT LIGHT GREEN TOP STAT 09/22/2024 3:11 PM EDT MINT GREEN TOP STAT 09/22/2024 3:11 PM EDT LAVENDER TOP STAT 09/22/2024 3:11 PM EDT RAINBOW DRAW STAT 09/22/2024 3:11 PM EDT ECG 12-LEAD STAT 09/22/2024 2:48 PM EDT EKG 09/18/2024 4:40 PM EDT XR KNEE LEFT 2 VIEWS (STANDARD) SEKOU 09/18/2024 1:42 PM EDT XR ANKLE LEFT 3+ VIEWS (STANDARD) SEKOU 09/18/2024 1:42 PM EDT XR CHEST PA/AP SEKOU 09/18/2024 1:41 PM EDT CBC WITH AUTO DIFFERENTIAL STAT 09/18/2024 1:19 PM EDT LIGHT BLUE TOP STAT 09/18/2024 1:19 PM EDT LIGHT GREEN TOP STAT 09/18/2024 1:19 PM EDT RAINBOW DRAW STAT 09/18/2024 1:19 PM EDT TROPONIN X 2 (NOW AND REPEAT IN 2 HOURS) STAT 09/18/2024 1:19 PM EDT BASIC METABOLIC PANEL STAT 09/18/2024 1:19 PM EDT CBC WITH AUTO DIFFERENTIAL STAT 09/18/2024 1:19 PM EDT ECG 12-LEAD SEKOU 09/18/2024 1:16 PM EDT HIV 1/2 SCREEN (4TH GENERATION) Routine 08/02/2024 3:40 PM EDT Encounter for health-related screening HEMOGLOBIN A1C Routine 08/02/2024 3:40 PM EDT Type 2 diabetes mellitus with diabetic polyneuropathy, with long-term current use of insulin (HCC) HEPATITIS C ANTIBODY WITH REFLEX TO HCV VIRUS QUANTITIATION Routine 08/02/2024 3:40 PM EDT Encounter for health-related screening DIABETES FOOT EXAM Routine 04/14/2023 from Last 3 Months or Most Recently Relevant to Health Maintenance Results * XR Lumbar Spine 2-3 Views (Standard) (09/23/2024 11:52 AM EDT) Anatomical Region Laterality Modality T-spine, L-spine, Pelvis Digital Radiography 09/25/2024 11:4 2 AM EDT Impressions 09/25/2024 11:44 AM EDT Moderate degenerative changes. Workstation ID: [id number] Narrative 09/25/2024 11:44 AM EDT EXAMINATION: XR LUMBAR SPINE 2-3 VIEWS (STANDARD) HISTORY: LUMBAR PAIN COMPARISON: Study from 2023 FINDINGS: Routine views of the lumbar spine were obtained and there is no evidence of fracture. Vertebral body heights are maintained. Patient body habitus somewhat limits evaluation. Moderate degenerative changes are present with endplate hypertrophy and multilevel facet arthropathy. There is also variable disc space height loss. Incidentally imaged abdominal structures are unremarkable. Procedure Note Daniel Rahman MD - 09/25/2024 EXAMINATION: XR LUMBAR SPINE 2-3 VIEWS (STANDARD) HISTORY: LUMBAR PAIN COMPARISON: Study from 2023 FINDINGS: Routine views of the lumbar spine were obtained and there is no evidenceof fracture. Vertebral body heights are maintained. Patient body habitus somewhat limits evaluation. Moderate degenerative changes are present with endplate hypertrophy andmultilevel facet arthropathy. There is also variable disc space heightloss. Incidentally imaged abdominal structures are unremarkable. IMPRESSION: Moderate degenerative changes. Workstation ID: [id number] Nazia Schuler PA-C IMG DIAGNOSTIC IMAGIN G ORDERABLES Final Result * EKG (09/23/2024 5:50 AM EDT) Mario Pitts MD SCANNED ORDERS Final Res ult * Mint Green Top (09/22/2024 3:32 PM EDT) Only the most recent of2 resultswithin the time period is included. Extra Tube Hold for add-ons. 09/22/2024 5:59 PM EDT [facility] Comment:Auto resulted. Blood BLOOD SPECIMEN / Unknown Venipuncture / Unknown 09/22/2024 3:32 PM EDT 09/22/2024 3:35 PM EDT Mario Pitts MD LAB BLOOD ORDERABLES Ioana l Result [facility] [address] [place] [address] * (ABNORMAL) Levetiracetam Level (09/22/2024 3:32 PM EDT) Levetiracetam <2.0(L) 6.0 - 46.0 mcg/mL 09/22/2024 7:40 PM EDT [facility] Blood BLOOD SPECIMEN / Unknown Venipuncture / Unknown 09/22/2024 3:32 PM EDT 09/22/2024 3:35 PM EDT us Mario Pitts MD LAB BLOOD ORDERABLES Ioana l Result [facility] [address] [place] [address] * Urine Drug Screen (09/22/2024 3:26 PM EDT) [facility] Amphetamine Screen, Urine None Detected None Detected 09/22/2024 3:59 PM EDT [facility] Comment:Urine Amphetamine Cu toff: < 1000 ng/mL = None Detected Barbiturate Screen, Urine None Detected None Detected 09/22/2024 3:59 PM EDT [facility] Comment:Urine Barbiturates C utoff: < 200 ng/mL = None Detected Benzodiazepine Screen, Urine None Detected None Detected 09/22/2024 3:59 PM EDT [facility] Comment:Urine Benzodiazepine Cutoff: < 200 ng/mL = None Detected Cannabinoid Screen, Urine None Detected None Detected 09/22/2024 3:59 PM EDT [facility] Comment:Urine Cannabinoids C utoff: < 50 ng/mL = None Detected Cocaine, Screen Urine None Detected None Detected 09/22/2024 3:59 PM EDT [facility] Comment:Urine Cocaine Cutoff : < 300 ng/mL = None Detected Methadone Screen, Urine None Detected None Detected 09/22/2024 3:59 PM EDT [facility] Comment:Urine Methadone Cuto ff: < 300 ng/mL = None Detected Opiate Screen, Urine None Detected None Detected 09/22/2024 3:59 PM EDT [facility] Comment:Urine Opiates Cutoff : < 300 ng/mL = None Detected Oxycodone Screen, Urine None Detected None Detected 09/22/2024 3:59 PM EDT [facility] Comment:Urine Oxycodone Cuto ff: < 100 ng/mL = None Detected Buprenorphine, Ur None Detected None Detected 09/22/2024 3:59 PM EDT [facility] Comment:Urine Buprenorphine Cutoff: < 5 ng/mL = None Detected Fentanyl, Ur None Detected None Detected 09/22/2024 3:59 PM EDT [facility] Comment:Urine Fentanyl Cutof f: < 1 ng/mL = None Detected Urine URINE SPECIMEN / Unknown Collection / Unknown 09/22/2024 3:26 PM EDT 09/22/2024 3:37 PM EDT Narrative [facility] - 09/22/2024 3:59 PM EDT Screen results should be used for treatment purposes only. us Mario Pitts MD URINE ORDERABLES Final Re sult [facility] [address] [place] [id number] * (ABNORMAL) Urinalysis (09/22/2024 3:26 PM EDT) Color, Urine Yellow Colorless, Yellow 09/22/2024 3:58 PM EDT [facility] Clarity, Urine Hazy(A) Clear 09/22/2024 3:58 PM EDT [facility] Specific Grahn 1.017 1.005 - 1.025 09/22/2024 3:58 PM EDT [facility] pH, Urine 5.0 5.0 - 7.0 09/22/2024 3:58 PM EDT [facility] Protein, Urine 100(A) Negative mg/dL 09/22/2024 3:58 PM EDT [facility] Glucose, Urine >=500(A) Negative mg/dL 09/22/2024 3:58 PM EDT [facility] Ketones, Urine Negative Negative mg/dL 09/22/2024 3:58 PM EDT [facility] Bilirubin, Urine Negative Negative 09/22/2024 3:58 PM EDT [facility] Urobilinogen, Urine <2.0 <2.0 mg/dL 09/22/2024 3:58 PM EDT [facility] Blood, Urine Small(A) Negative 09/22/2024 3:58 PM EDT [facility] Nitrite, Urine Negative Negative 09/22/2024 3:58 PM EDT [facility] Leukocyte Esterase, Urine Negative Negative 09/22/2024 3:58 PM EDT [facility] WBCs, Urine 6(H) 0 - 5 /hpf 09/22/2024 3:58 PM EDT [facility] RBCs, Urine 1 0 - 3 /hpf 09/22/2024 3:58 PM EDT [facility] Bacteria, Urine Few(A) None Seen /hpf 09/22/2024 3:58 PM EDT [facility] Squamous Epithelial 1 0 - 4 /hpf 09/22/2024 3:58 PM EDT [facility] Hyaline Casts 0-2 0 - 2 /lpf 09/22/2024 3:58 PM EDT [facility] Urine URINE SPECIMEN / Unknown Collection / Unknown 09/22/2024 3:26 PM EDT 09/22/2024 3:38 PM EDT Narrative [facility] - 09/22/2024 3:58 PM EDT Microscopic examination is performed on all urinalysis samples and only positive findings are reported. The test for blood on the chemical analytic portion of urinalysis may also be positive due to hemoglobinuria and myoglobinuria and if red blood cells are present they are quantified by microscopic examination. Mario Pitts MD URINE ORDERABLES Final Re sult Performing Organization Address City/[facility]/ZIP Co de Phone Number [facility] [address] [place] [address] * [facility] (09/22/2024 3:11 PM EDT) Only the most recent of2 resultswithin the time period is included. Extra Tube Hold for add-ons. 09/22/2024 7:58 PM EDT [facility] Comment:Auto resulted. Blood BLOOD SPECIMEN / Unknown Venipuncture / Unknown 09/22/2024 3:11 PM EDT 09/22/2024 3:19 PM EDT Mario Pitts MD LAB BLOOD ORDERABLES Ioana l Result Performing Organization Address [facility]/ZIP Co de Phone Number [facility] [address] [place] [address] * (ABNORMAL) CBC Auto Differential (09/22/2024 3:11 PM EDT) Only the most recent of2 resultswithin the time period is included. [facility] WBC 8.90 4.50 - 11.00 K/mcL 09/22/2024 3:32 PM EDT [facility] RBC 3.97(L) 4.00 - 5.20 M/mcL 09/22/2024 3:32 PM EDT [facility] Hemoglobin 12.1 12.0 - 16.0 g/dL 09/22/2024 3:32 PM EDT [facility] Hematocrit 35.3(L) 36.0 - 46.0 % 09/22/2024 3:32 PM EDT [facility] MCV 88.9 80.0 - 100.0 fL 09/22/2024 3:32 PM EDT [facility] MCH 30.5 26.0 - 34.0 pg 09/22/2024 3:32 PM EDT [facility] MCHC 34.3 31.0 - 37.0 g/dL 09/22/2024 3:32 PM EDT [facility] Platelets 283 150 - 400 K/[facility] 09/22/2024 3:32 PM EDT [facility] RDW - CV 13.3 11.6 - 14.8 % [facility]22[facility]2024 [facility] MPV 9.7 9.4 - 12.4 fL 09/22/2024 3:32 PM EDT [facility] Neutrophils 76.8 % 09/22/2024 3:[facility] Lymphocytes 16.7 % 09/22/2024 3:[facility] Monocytes 4.6 % 09/22/2024 3:32 PM EDT [facility] Eosinophils 0.9 % 09/22/2024 3:32 PM EDT [facility] Basophils 0.6 % 09/22/2024 3:32 PM EDT [facility] IG Percent 0.40 % 09/22/2024 3:32 PM T [facility] Comment:The IG parameter is the percentage of metamyelocytes, myelocytes and promyelocytes. An immature granulocyte count (IG) of 1% or more suggests the possibility of infection, an IG count of 3% is very likely related to an infection. Neutrophils Abs 6.83 1.70 - 7.00 K/mcL 09/22/2024 3:32 PM [facility] Lymphocytes Abs 1.49 0.90 - 4.00 K/[facility] 09/22/2024 3:32 PM EDT [facility] Monocytes Abs 0.41 0.30 - 0.90 K/[facility] 09/22/2024 3:32 PM EDT [facility] Eosinophils Abs 0.08 0.00 - 0.50 K/[facility] 09/22/2024 3:32 PM EDT [facility] Basophils Abs 0.05 0.00 - 0.30 K/[facility] 09/22/2024 3:32 PM EDT [facility] IG Absolute 0.04 0.00 - 0.30 K/[facility] 09/22/2024 3:32 PM EDT [facility] Nucleated RBC 0.0 % 09/22/2024 3:32 PM EDT [facility] Nucleated RBC Abs 0.00 0.00 - 0.00 K/[facility] 09/22/2024 3:32 PM EDT [facility] Blood BLOOD SPECIMEN / Unknown Venipuncture / Unknown 09/22/2024 3:11 PM EDT 09/22/2024 3:19 PM EDT Mario Pitts MD LAB BLOOD ORDERABLES Ioana l Result [facility] [address] [place] [address] * Lavender Top (09/22/2024 3:11 PM EDT) Extra Tube Hold for add-ons. 09/22/2024 5:59 PM EDT [facility] Comment:Auto resulted. Blood BLOOD SPECIMEN / Unknown Venipuncture / Unknown 09/22/2024 3:11 PM EDT 09/22/2024 3:19 PM EDT Mario Pitts MD LAB BLOOD ORDERABLES Ioana l Result [facility] [address] [place] [address] * Light Blue Top (09/22/2024 3:11 PM EDT) Only the most recent of2 resultswithin the time period is included. Extra Tube Hold for add-ons. 09/22/2024 5:59 PM EDT [facility] Comment:Auto resulted. Blood BLOOD SPECIMEN / Unknown Venipuncture / Unknown 09/22/2024 3:11 PM EDT 09/22/2024 3:19 PM EDT Mario Pitts MD LAB BLOOD ORDERABLES Ioana l Result Performing Organization Address [facility] de Phone Number [facility] [address] [place] [address] * CBC and Diff Morphology (09/22/2024 3:11 PM EDT) Pathologist [facility] Platelet Estimate Normal Normal 09/22/2024 3:32 PM EDT [facility] RBC Morphology Normal 09/22/2024 3:32 PM EDT [facility] Comment:RBC Indices confirme d with manual peripheral smear review. Blood BLOOD SPECIMEN / Unknown Venipuncture / Unknown 09/22/2024 3:11 PM EDT 09/22/2024 3:19 PM EDT Mario Pitts MD LAB BLOOD ORDERABLES Ioana l Result Performing Organization Address [facility] de Phone Number [facility] [address] [place] [address] * Liver Function Tests (LFTs) (09/22/2024 3:11 PM EDT) Pathologist [facility] Total Protein 6.5 6.0 - 8.0 g/dL 09/22/2024 3:42 PM EDT [facility] Albumin 3.5 3.2 - 5.2 g/dL 09/22/2024 3:42 PM EDT [facility] Total Bilirubin 0.3 0.0 - 1.3 mg/dL 09/22/2024 3:42 PM EDT [facility] Bilirubin, Direct 0.2 0.0 - 0.4 mg/dL 09/22/2024 3:42 PM EDT [facility] Alkaline Phosphatase 107 40 - 150 U/L 09/22/2024 3:42 PM EDT [facility] AST 12 0-35 U/L U/L 09/22/2024 3:42 PM EDT [facility] ALT 11 0-35 U/L U/L 09/22/2024 3:42 PM EDT [facility] Blood BLOOD SPECIMEN / Unknown Venipuncture / Unknown 09/22/2024 3:11 PM EDT 09/22/2024 3:19 PM EDT us Mario Pitts MD LAB BLOOD ORDERABLES Ioana l Result [facility] [address] [place] [address] * (ABNORMAL) BMP (09/22/2024 3:11 PM EDT) Only the most recent of2 resultswithin the time period is included. Sodium 130(L) 135 - 145 mmol/L 09/22/2024 3:44 PM EDT [facility] Potassium 4.0 3.5 - 5.1 mmol/L 09/22/2024 3:44 PM EDT [facility] Chloride 97(L) 98 - 108 mmol/L 09/22/2024 3:44 PM EDT [facility] Bicarbonate 17(L) 21 - 32 mmol/L 09/22/2024 3:44 PM EDT [facility] Anion Gap 20 10 - 20 mmol/L 09/22/2024 3:44 PM EDT [facility] Glucose 468(HH) 65 - 99 mg/dL 09/22/2024 3:44 PM EDT [facility] BUN 30(H) 8 - 25 mg/dL 09/22/2024 3:44 PM EDT [facility] Creatinine 1.71(H) 0.40 - 1.10 mg/dL 09/22/2024 3:44 PM EDT [facility] eGFR 37(L) >=60 mL/min/1.7 3 m2 09/22/2024 3:44 PM EDT [facility] Comment:Estimated GFR was ca lculated using the 2020 CKD-EPI creatinine equation. BUN/Creatinine Ratio 17.5 10.0 - 20.0 09/22/2024 3:44 PM EDT [facility] Calcium 8.9 8.4 - 10.2 mg/dL 09/22/2024 3:44 PM EDT [facility] Blood BLOOD SPECIMEN / Unknown Venipuncture / Unknown 09/22/2024 3:11 PM EDT 09/22/2024 3:19 PM EDT Narrative [facility] - 09/22/2024 3:44 PM EDT [facility] has implemented the eGFR calculation approach that does not have a coefficient for race that conforms to the NKF-ASN Task Force Recommendations. Mario Pitts MD LAB BLOOD ORDERABLES Ioana l Result Performing Organization Address [facility] Co de Phone Number [facility] [address] [place] [address] * EKG 12-lead (09/22/2024 2:48 PM EDT) Only the most recent of2 resultswithin the time period is included. [facility] Ventricular Rate 98 BPM MUSE Atrial Rate 98 BPM MUSE P-R Interval 166 ms MUSE QRS Duration 84 ms MUSE Q-T Interval 370 ms MUSE QTC Calculation (Bezet) 472 ms MUSE P [place] 62 degrees MUSE R [place] 28 degrees MUSE T [place] -2 degrees MUSE 09/22/2024 2:48 PM EDT 09/22/2024 4:08 PM EDT Narrative MUSE - 09/22/2024 4:08 PM EDT Normal sinus rhythm Nonspecific T wave abnormality Prolonged QT Abnormal ECG Confirmed by Maira STEVENS [facility] ([id number]) on 09/22/2024 4:08:24 PM Mario Pitts MD ECG ORDERABLES Final Res ult Performing Organization Address [facility] Co de Phone Number MUSE * EKG (09/18/2024 4:40 PM EDT) Mario Pitts MD SCANNED ORDERS Final Res ult * XR Knee Left 2 Views (Standard) (09/18/2024 1:42 PM EDT) Anatomical Region Laterality Modality Thigh, Knee, Leg Computed Radiog rangel 09/18/2024 1:51 PM EDT Impressions 09/18/2024 1:52 PM EDT Negative. Workstation ID: [id number] Narrative 09/18/2024 1:52 PM EDT EXAMINATION: XR KNEE LEFT 2 VIEWS (STANDARD) 09/18/2024 1:32 pm HISTORY: ORDERING SYSTEM PROVIDED HISTORY: knee pain, TECHNOLOGIST PROVIDED HISTORY: The patient is a 49-year-old female. Injury/Trauma Reason for exam: knee pain Cancer History: u Surgery, RadiationHistory: pacemaker Encounter Type: Initial Mechanism of injury: fall ORDERING SYSTEM PROVIDED DIAGNOSIS CODES: COMPARISON: 08/02/2024. FINDINGS: These two views of the left knee are radiographically negative with no evidence of fracture, dislocation, joint space narrowing, osteophytes, or other osseous or articular abnormalities. Procedure Note Mikel Boss MD - 09/18/2024 EXAMINATION: XR KNEE LEFT 2 VIEWS (STANDARD) 09/18/2024 1:32 pm HISTORY: ORDERING SYSTEM PROVIDED HISTORY: knee pain, TECHNOLOGIST PROVIDED HISTORY: The patient is a 49-year-old female. Injury/Trauma Reason for exam: knee pain Cancer History: u Surgery, RadiationHistory: pacemaker Encounter Type: Initial Mechanism of injury: fall ORDERING SYSTEM PROVIDED DIAGNOSIS CODES: COMPARISON: 08/02/2024. FINDINGS: These two views of the left knee are radiographically negative with noevidence of fracture, dislocation, joint space narrowing, osteophytes, orother osseous or articular abnormalities. IMPRESSION: Negative. Workstation ID: [id number] Mario Pitts MD IMG DIAGNOSTIC IMAGING OR DERABLES Final Result * XR Ankle Left 3+ Views (Standard) (09/18/2024 1:42 PM EDT) Anatomical Region Laterality Modality Leg, Ankle, Foot Computed Radiog rangel 09/18/2024 1:48 PM EDT Impressions 09/18/2024 1:52 PM EDT Plate and screw fixation of the distal fibula. Probable screw track padilla within the lateral malleolus. Lateral ankle soft tissue edema. Moderate tibiotalar joint degenerative changes. No acute fracture. Osteopenia. Articular body along the anterior tibiotalar joint space measuring 0.7 cm in size. Workstation ID: [id number] Narrative 09/18/2024 1:52 PM EDT EXAMINATION: XR ANKLE LEFT 3+ VIEWS (STANDARD) HISTORY: Patient discharge from [facility] , Dr. Wilks due to no shows 02/2024 Injury/Trauma or Illness?:Injury/Trauma ORDERING SYSTEM PROVIDED HISTORY: ankle pain, TECHNOLOGIST PROVIDED HISTORY: Injury/Trauma Reason for exam: ankle pain Cancer History: u Surgery, RadiationHistory: pacemaker Encounter Type: Initial Mechanism of injury: fall ORDERING SYSTEM PROVIDED DIAGNOSIS CODES: COMPARISON: CT left foot 03/31/2024 Procedure Note To, Jaguar Yan MD - 09/18/2024 EXAMINATION: XR ANKLE LEFT 3+ VIEWS (STANDARD) HISTORY: Patient discharge from [facility] , Dr. Wilks due to no shows02/2024 Injury/Trauma or Illness?:Injury/Trauma ORDERING SYSTEM PROVIDED HISTORY:ankle pain, TECHNOLOGIST PROVIDED HISTORY: Injury/Trauma Reason for exam: ankle pain Cancer History: u Surgery, RadiationHistory: pacemaker Encounter Type: Initial Mechanism of injury: fall ORDERING SYSTEM PROVIDED DIAGNOSIS CODES: COMPARISON: CT left foot 03/31/2024 IMPRESSION: Plate and screw fixation of the distal fibula. Probable screw track markswithin the lateral malleolus. Lateral ankle soft tissue edema. Moderatetibiotalar joint degenerative changes. No acute fracture. Osteopenia.Articular body along the anterior tibiotalar joint space measuring 0.7 cmin size. Workstation ID: [id number] Mario Pitts MD IMG DIAGNOSTIC IMAGING OR DERABLES Final Result * XR Chest 1 View (09/18/2024 1:41 PM EDT) Anatomical Region Laterality Modality Chest Computed Radiogr aphy 09/18/2024 1:51 PM EDT Impressions 09/18/2024 1:52 PM EDT No acute process identified. Stable exam. Low lung volumes. Workstation ID: [id number] Narrative 09/18/2024 1:52 PM EDT EXAMINATION: XR CHEST PA/AP HISTORY: ORDERING SYSTEM PROVIDED HISTORY: cp, TECHNOLOGIST PROVIDED HISTORY: Illness/Other Reason for exam: chest pain Cancer History: u Surgery, RadiationHistory: pacemaker Encounter Type: Initial Additional signs and symptoms: na ORDERING SYSTEM PROVIDED DIAGNOSIS CODES: COMPARISON: 03/27/2024 TECHNIQUE: AP portable view of the chest obtained. FINDINGS: Study somewhat limited due to combination of body habitus and low volumes. There is [id number] elevation the right hemidiaphragm which appears unchanged. Right-sided MediPort terminates at the level of the distal SVC. This is unchanged. There is no pneumothorax or dense of pleural effusion and there is no focal airspace opacity seen. Left-sided AICD appears unchanged. No gross evidence of any acute bony finding or interval change. Procedure Note Chico Maldonado, - 09/18/2024 EXAMINATION: XR CHEST PA/AP HISTORY: ORDERING SYSTEM PROVIDED HISTORY: cp, TECHNOLOGIST PROVIDED HISTORY: Illness/Other Reason for exam: chest pain Cancer History: u Surgery, RadiationHistory: pacemaker Encounter Type: Initial Additional signs and symptoms: na ORDERING SYSTEM PROVIDED DIAGNOSIS CODES: COMPARISON: 03/27/2024 TECHNIQUE: AP portable view of the chest obtained. FINDINGS: Study somewhat limited due to combination of body habitus and low volumes.There is [id number] elevation the right hemidiaphragm which appearsunchanged. Right-sided MediPort terminates at the level of the distalSVC. This is unchanged. There is no pneumothorax or dense of pleuraleffusion and there is no focal airspace opacity seen. Left-sided AICDappears unchanged. No gross evidence of any acute bony finding orinterval change. IMPRESSION: No acute process identified. Stable exam. Low lung volumes. Workstation ID: [id number] us Mario Pitts MD [facility] [place] OR DERABLES Final Result * (ABNORMAL) Troponin x 2 (Now and Repeat in 2 Hours) (09/18/2024 1:19 PM EDT) Pathologist [facility] [place] Troponin T 24(HH) <=14 ng/L 09/18/2024 1:54 PM EDT [facility] Troponin T Interpretation Possible acute cardiac injury. 09/18/2024 1:54 PM EDT [facility] Blood BLOOD SPECIMEN / Unknown Venipuncture / Unknown 09/18/2024 1:19 PM EDT 09/18/2024 1:23 PM EDT Mario Pitts MD LAB BLOOD ORDERABLES Ioana l Result [facility] [address] [place] [address] * Hepatitis C Ab with Reflex to HCV Virus Quantitation (08/02/2024 3:40 PM EDT) Hepatitis C Ab ([facility]) NON-REACT CORI NON-REACT CORI [facility] Comment: HCV antibody was non-reactive. There is no laboratory evidence of HCV infection. In most cases, no further action is required. However, if recent HCV exposure is suspected, a test for HCV RNA (test code 00521) is suggested. For additional information please refer to http://education.Tooth Bank/faq/EML42n0 (This link is being provided for informational/ educational purposes only.) Blood BLOOD SPECIMEN / Unknown 08/02/2024 3:40 PM EDT 08/02/2024 3:41 PM EDT Toan Nielsen PA-C LAB BLOOD ORDERABLES Ioana l Result Performing Organization Address [facility] Co de Phone Number [employer] [place] [place] [address], * HIV Antibody (HIV1/HIV2) (08/02/2024 3:40 PM EDT) Hiv Ag/Ab 4Th Gen ([facility]) NON-REACT CORI NON-REACT CORI [employer] [facility] Comment: HIV-1 antigen and HIV-1/HIV-2 antibodies were not detected. There is no [...] purpose. For additional information please refer to http://education.Wizzgo.CloudCrowd/faq/XFO284 (This link is being provided for informational/ educational purposes only.) The performance of this assay has not been clinically validated in patients less than 2 years old. Blood BLOOD SPECIMEN / Unknown 08/02/2024 3:40 PM EDT 08/02/2024 3:41 PM EDT Tona Nielsen PA-C LAB BLOOD ORDERABLES Ioana l Result Performing Organization Address [facility] Co de Phone Number [employer] [address] [phone], * (ABNORMAL) Hemoglobin A1c (08/02/2024 3:40 PM EDT) Hemoglobin A1C ([facility]) 10.6(H) <5.7 % of total Hgb [employer] [facility] [address] Comment: For someone without known diabetes, a [...] A1c for diagnosis of diabetes for children. Blood BLOOD SPECIMEN / Unknown 08/02/2024 3:40 PM EDT 08/02/2024 3:41 PM EDT Tona Nielsen PA-C LAB BLOOD ORDERABLES Ioana l Result Performing Organization Address [facility]/ZIP Co de Phone Number [employer] [facility] [address] [place] [phone], [place] * HM DIABETES FOOT EXAM (04/14/2023) 04/14/2023 Historical Provider HEALTH MAINTENANCE Final Result from Last 3 Months or Most Recently Relevant to Health Maintenance Insurance [employer] Advance Directives For more information, please contact: [phone] Documents on File Type Date Recorded Patient Firer Boiler Expl anation Advance Directives and Livin g Will 11/09/2023 8:44 PM * Full Code (Latest Code Status on File) Date Activated Date Inactivated Comments 04/27/2024 1:09 AM 04/29/2024 5:58 PM * Full Code Date Activated Date Inactivated Comments 04/26/2024 11:46 PM 04/27/2024 1:09 AM * Full Code Date Activated Date Inactivated Comments 03/25/2024 12:34 AM 04/04/2024 7:43 PM * Full Code Date Activated Date Inactivated Comments 01/12/2024 5:17 PM 01/18/2024 4:48 PM * Full Code Date Activated Date Inactivated Comments 05/10/2023 4:09 PM 05/13/2023 6:15 PM
--- OUTSIDE RECORDS SUMMARY | 2024-12-02 15:45 | XMS_ITS | Clinical Summary ---
Author Organization Manjit Borjas [facility] Address [address] [place] [address] Care Team Providers Care Pet Handler Name Role Phone George Rob DO Primary Care Provider [phone] Allergies Active Allergy Reactions Criticality Noted Date Comments Lorazepam Hallucinations 12/08/2021 Codeine Other (See Comments) 05/25/2015 Get very angry Iodides Other (See Comments) High 02/16/2017 Renal compromise Propoxyphene Nausea And Vomiting Low 05/25/2015 Ketorolac Tromethamine Other (See Comments) 05/2015 Messes with seizures Tramadol Hives 05/25/2015 Vancomycin Other (See Comments) High 02/16/2017 Shuts my kidneys down Medications insulin glargine (LANTUS) 100 UNIT/ML injection vial Inject 60 Units into the skin 2 times daily Active atorvastatin (LIPITOR) 20 MG tablet Take 20 mg by mouth daily Active fluticasone-tanya meterol (ADVAIR) 250-50 MCG/DOSE AEPB Inhale 1 puff into the lungs daily Active insulin lispro (HUMALOG) 100 UNIT/ML injection vial Inject into the skin 3 times daily (before meals) 8 am, check sugar-by scale, and by amount eaten takes insulin, do the same for lunch, and dinner Does not have scale with her Active metFORMIN (GLUCOPHAGE) 1000 MG tablet Take 1,000 mg by mouth 2 times daily (with meals) Active metoprolol (LOPRESSOR) 25 MG tablet Take 25 mg by mouth daily Active omeprazole (PRILOSEC) 20 MG capsule Take 40 mg by mouth daily Active pregabalin (LYRICA) 100 MG capsule Take 100 mg by mouth three times daily Active aspirin 81 MG chewable tablet Take 1 tablet by mouth daily 30 tablet 3 6 Active Blood Pressure Monitor KIT 1 kit by Does not apply route daily 1 kit 0 6 Active lithium 300 MG capsule Take 300 mg by mouth daily Active lithium 300 MG capsule Take 600 mg by mouth Daily with supper Active QUEtiapine (SEROQUEL XR) 50 MG extended release tablet Take 50 mg by mouth nightly Active levothyroxine (SYNTHROID) 75 MCG tablet Take 75 mcg by mouth Daily Active lisinopril (PRINIVIL;ZESTR IL) 5 MG tablet Take 5 mg by mouth daily Active nystatin (MYCOSTATIN) 438143 UNIT/GM cream Apply topically 2 times daily Apply topically 2 times daily. Active nystatin (MYCOSTATIN) 703879 UNIT/GM powder Apply topically 4 times daily Apply topically 4 times daily. Active tiZANidine (ZANAFLEX) 4 MG tablet Take 4 mg by mouth nightly Active zonisamide (ZONEGRAN) 100 MG capsule Take 200 mg by mouth daily Active diclofenac (VOLTAREN) 75 MG EC tablet Take 75 mg by mouth 2 times daily Active lidocaine-prilo karey (EMLA) 2.5-2.5 % cream Apply topically as needed for Pain Apply topically as needed. Active divalproex (DEPAKOTE) [address] tablet Take 500 mg by mouth in the morning and 500 mg before bedtime. Active levETIRAcetam (KEPPRA) 500 MG tablet Take 500 mg by mouth in the morning and 500 mg before bedtime. Active Insulin Aspart (NOVOLOG SC) Inject into the skin Via insulin pump per patient Active Active Problems Problem Noted Date Diagnosed Date Seizure disorder 05/25/2015 Syncope 05/25/2015 Visual changes 05/25/2015 Type 2 diabetes mellitus with obesity 05/25/2015 Overview (02/24/2024): Problem List Diagnosis Replacement Utility 02/23/2024 Hyponatremia 05/25/2015 Nausea and vomiting 05/25/2015 Diarrhea 05/25/2015 Sciatica of left side 05/25/2015 Non-intractable vomiting with nausea Psychogenic syncope Pacemaker Immunizations Immunization Administration Dates Next Due Influenza Virus Vaccine 05/28/2015 Family History Medical History Relation Name Comments Other Brother 2 blood disease Diabetes Father Heart Disease Father High Blood Pressure Father Other Mother epilepsy Relation Name Status Comments Brother 2 Alive Father Alive Mother Alive Social History Tobacco Use Types Packs/Day Years Used Date Smoking Tobacco: Former Cigarettes Q uit: 06/25/2015 Smokeless Tobacco: Former Tobacco Cessation:Counseling Given: Not Answered Alcohol Use Standard Drinks/Week Comments No 0 (1 standard drink = 0.6 oz pur e alcohol) Comments No Sex and Gender Information Value Date Recorded Sex Assigned at Not on file Legal Sex Female 11:49 PM EST Gender Identity Not on file Sexual Orientation Not on file Last Filed Vital Signs Vital Sign Reading Time Taken Comments Blood Pressure 104/75 12/08/2021 3:56 PM EDT Pulse 100 12/08/2021 3:56 PM EDT Temperature 37 C (98.6 F) 12/08/2021 3:19 PM EDT Respiratory Rate 16 12/08/2021 3:56 PM EDT Oxygen Saturation 98% 12/08/2021 3:56 PM EDT Inhaled Oxygen Concentration - - Weight 113.4 kg (250 lb) 12/08/2021 3:19 PM EDT Height 157.5 cm (5' 2 ) 12/08/2021 3:19 PM EDT Body Mass Index 45.73 12/08/2021 3:19 PM EDT Plan of Treatment Health Maintenance Due Date Last Done Comments Diabetic foot exam 1987 Depression Screen 1989 HIV screen 1992 Diabetic Alb to Cr ratio (uACR) test 1995 Diabetic retinal exam 1995 Hepatitis C screen 1995 DTaP/Tdap/Td vaccine (1 - Tdap) 1996 Hepatitis B vaccine (1 of 3 - 19+ 3-dose series) 1996 Lipids 05/25/2016 05/25/2015 A1C test (Diabetic or Prediabetic) 05/26/2016 05/26/2015 Breast cancer screen 2017 GFR test (Diabetes, CKD 3-4, OR last GFR 15-59) 09/01/2018 09/01/2017, 09/01/2017, 02/16/2017, Additional history exists Pneumococcal 0-49 years Vaccine (2 of 2 - PCV) 03/06/2022 03/06/2021 Colonoscopy 2022 Colorectal Cancer Screen 2022 FIT/FOBT: Average risk 2022 Fecal-DNA (Cologuard): Average risk 2022 Sigmoidoscopy/CT colonography 2022 COVID-19 Vaccine ( season) 2024 Flu vaccine (#1) 12/23/2024 03/06/2021, 04/2021, 05/25/2020, Additional history exists Hepatitis A vaccine Aged Out No longe r eligible based on patient's age to complete this topic Hib vaccine Aged Out No longer eligi ble based on patient's age to complete this topic Meningococcal (ACWY) vaccine Aged Out No longer eligible based on patient's age to complete this topic Meningococcal B vaccine Aged Out No l onger eligible based on patient's age to complete this topic Polio vaccine Aged Out No longer elig ible based on patient's age to complete this topic Procedures Procedure Name Priority Date/Time Associated Diagnosis Comments BASIC METABOLIC PANEL STAT 09/01/2017 5:20 PM EDT HEMOGLOBIN A1C Routine 05/26/2015 4:22 AM EST LIPID PANEL Routine 05/25/2015 10:35 PM EST from Last 3 Months or Most Recently Relevant to Health Maintenance Results * (ABNORMAL) Basic Metabolic Panel (09/01/2017 5:20 PM EDT) Glucose 447(HH) 70 - 99 mg/dL 09/01/2017 6:01 PM EDT [facility] BUN 9 6 - 20 mg/dL 09/01/2017 5:50 PM EDT [facility] Creatinine 0.62 0.50 - 0.90 mg/dL 09/01/2017 5:50 PM EDT [facility] BUN/Creatinine Ratio 15 9 - 20 09/01/2017 5:50 PM EDT [facility] Calcium 9.4 8.6 - 10.4 mg/dL 09/01/2017 5:50 PM EDT [facility] Sodium 135 135 - 144 mmol/L 09/01/2017 5:50 PM EDT [facility] Potassium 3.5(L) 3.7 - 5.3 mmol/L 09/01/2017 5:50 PM EDT [facility] Chloride 94(L) 98 - 107 mmol/L 09/01/2017 5:50 PM EDT [facility] CO2 20 20 - 31 mmol/L 09/01/2017 5:50 PM EDT [facility] Anion Gap 21(H) 9 - 17 mmol/L 09/01/2017 5:50 PM EDT [facility] GFR Non- >60 >60 mL/min 09/01/2017 5:50 PM EDT [facility] GFR >60 >60 mL/min 09/01/2017 5:50 PM EDT [facility] GFR Comment 09/01/2017 5:50 PM EDT [facility] Comment: Average GFR for 40-49 years old: 99 mL/min/1.73sq m Chronic Kidney Disease: <60 mL/min/1.73sq m Kidney failure: <15 mL/min/1.73sq m eGFR calculated using average adult body mass. Additional eGFR calculator available at: http://www.MedPro/multiple_crcl_2012.htm GFR Staging 09/01/2017 5:50 PM EDT [facility] Comment: Stage 1: Some kidney damage normal GFR Stage 2: Mild kidney damage GFR 60-89 Stage 3: Moderate kidney damage GFR 30-59 Stage 4: Severe kidney damage GFR 15-29 Stage 5: Severe kidney damage GFR <15 ESRD - chronic treatment by dialysis or transplant Performed at [address] [place] [address] ([phone] BLOOD SPECIMEN / Unknown 09/01/2017 5:20 PM EDT 09/01/2017 5:24 PM EDT us Cecilia Ornelas DO CHEMISTRY ORDERABLES Final Result [facility] [address] [place] [address] [place] [address], [facility] [phone] * (ABNORMAL) Hemoglobin A1C (05/26/2015 4:22 AM EST) Hemoglobin A1C 9.8(H) 4.4 - 6.4 % 05/26/2015 4:29 AM EST [facility] Estimated Avg Glucose 234(H) 70 - 126 mg/dl 05/26/2015 4:29 AM EST [facility] Comment:Performed at [facility] [address] [place] [address] Blood (substance) BLOOD SPECIMEN / Unknown 05/26/2015 4:22 AM EST 05/26/2015 4:39 AM EST Sherrie Jenkins DO CHEMISTRY ORDERABLES Ioana l Result Performing Organization Address City/State/[facility] Co de Phone Number [facility] [address] [place] [address], [facility] [phone] [facility] [address] [phone] * (ABNORMAL) Lipid Panel (05/25/2015 10:35 PM EST) Cholesterol, Total 215(H) 100 - 199 mg/dl 05/25/2015 11:31 PM [facility] Comment: <200 Desirable 200 - 239 Borderline High >239 High Triglycerides 235(H) 0 - 199 mg/dl 05/25/2015 11:31 PM EST [facility] Comment: <150 Desirable 150 - 199 Borderline High 200 - 499 High >449 Very High Ranges are based upon NCEP/ATP III guidelines. HDL 37 mg/dl 05/25/2015 11:31 PM [facility] Comment: Refer to General Chemistry for CHOL and TRIG results. HDL CLASSIFICATIONS FOR PATIENTS > 20 YEARS OLD. <40 Undesirable (Major Risk Factor) >60 Protective (Negative Risk Factor) LDL Calculated 131 mg/dl 05/25/2015 11:31 PM [facility] Comment: Refer to General Chemistry for CHOL and TRIG results. LDL CLASSIFICATIONS FOR PATIENTS >20 YEARS OLD: Determination Invalid if TRIG >400 <100 Optimal 100 - 129 Near or Above Optimal 130 - 159 Borderline High 160 - 189 High Risk >189 Very High Risk Performed at [facility] [address] [place] [address] Blood (substance) BLOOD SPECIMEN / Unknown 05/25/2015 10:35 PM EST 05/25/2015 11:13 PM EST us Sherrie Jenkins DO CHEMISTRY ORDERABLES Ioana l Result [facility] [address] [place] [address], [facility] [phone] [facility] [address] [place] [address], [facility] [phone] from Last 3 Months or Most Recently Relevant to Health Maintenance Insurance [employer] Advance Directives * Full Code (Latest Code Status on File) Date Activated Date Inactivated Comments 05/25/2015 10:03 PM 05/28/2015 9:21 PM Care Teams Pet Handler Relationship Specialty Start Date End Date George Rob DO [address] [place] [address] PCP - General Family Medicine 05/28/15
--- OUTSIDE RECORDS SUMMARY | 2024-12-02 15:45 | XMS_ITS | Clinical Summary ---
Author Organization [facility] Address [address] [place] [address] [place] [address] Care Team Providers Care Motel Operator Name Role Phone Cherelle Fierro MD Unavailable [phone] Geo Leach MD Primary Care Provider [phone] George Rob DO Unavailable Unavailable Allergies Active Allergy Reactions Criticality Noted Date Comments *Adhesive Tape 07/15/2017 Codeine And Related Aggressive Behavior Medium 008 Propoxyphene N-Apap Nausea and Vomiting Medium 008 Dye Retirement Red 3 (Erythrosine) 01/21/2017 IV DYE shuts down my kidneys Fentanyl Renal Failure High 11/09/2023 Ibuprofen Renal Failure High 11/09/2023 Iodides High 02/16/2017 Other reaction(s): Other (See Comments) Renal compromise Latex 05/01/2015 Other reaction(s): Dermatitis Linezolid Renal Failure High 11/09/2023 Lorazepam Renal Failure High 11/09/2023 Nsaids 03/30/2017 shuts my kidney's down Ketorolac Tromethamine 01/21/2017 Unsure of reaction Tramadol Seizures High 12/15/2011 Vancomycin 01/21/2017 Shut down her kidneys Medications omeprazole (PRILOSEC) 20 MG PO cap DRIndications:A- fib,Syncope Take 40 mg by mouth daily. Active TiZANidine HCl (ZANAFLEX PO)Indications:A -fib,Syncope take 4 mg by mouth 2 times daily. Active lisinopril (ZESTRIL) 5 MG PO TABSIndications: HTN (hypertension),A -fib take 1 Tab by mouth daily. 30 Tab 11 3 Active Additional Information Patient not taking.Reported on 11/09/2023 Blood Pressure Monitoring (ADULT BLOOD PRESSURE CUFF LG) XX KITIndications:H TN (hypertension),A -fib 1 Kit by Unknown route As directed. 1 Kit 0 3 Active aspirin 81 MG Chew TabIndications:A trial fibrillation, unspecified type,SSS (sick sinus syndrome) take 1 tablet by mouth daily.. 30 tablet 7 Active Additional Information Patient taking differently:81 mg OralDAILY EVERY MORNING, Reported on 03/13/2017 atorvastatin (LIPITOR) 20 MG TabIndications:A trial fibrillation, unspecified type,SSS (sick sinus syndrome) take 1 tablet by mouth daily.. 30 tablet 7 Active Additional Information Patient taking differently:20 mg OralDAILY EVERY MORNING, Reported on 03/13/2017 lithium 300 MG CapIndications:A trial fibrillation, unspecified type,SSS (sick sinus syndrome) 300mg in AM and 600mg QHS 90 capsule 7 Active Additional Information Patient not taking.Reported on 11/09/2023 metformin 1000 MG TabIndications:A trial fibrillation, unspecified type,SSS (sick sinus syndrome) take 1 tablet by mouth 2 times daily.. 60 tablet 7 Active Additional Information Patient not taking.Reported on 11/09/2023 QUEtiapine 50 MG TabIndications:A trial fibrillation, unspecified type,SSS (sick sinus syndrome) take 1 tablet by mouth at bedtime.. 30 tablet 7 Active diphenhydrAMINE 50 MG CapIndications:A trial fibrillation, unspecified type,SSS (sick sinus syndrome) Take 1 hour prior to pacemaker implant 02/23/17- 7am 1 capsule 7 Active Additional Information Patient not taking.Reported on 11/09/2023 losartan 25 MG Tab tablet take 25 mg by mouth daily every morning. Active Levothyroxine Sodium (LEVOTHYROXINE PO) Take 75 tablets by mouth daily. Active levetiracetam 500 MG Tab tablet Take 1,000 mg by mouth 2 times daily. Active pregabalin 100 MG Cap Take 100 mg by mouth at bedtime. Active insulin lispro 100 UNIT/ML vial - dose 12 units per meal, can do 6 units if having a smaller meal - also dose before meals and at bedtime for BG >150: 151-200 = 2 units 201-250 = 4 units 251-300 = 6 units 301-350 = 8 units 351-400 = 10 units 1 vial 1 7 Active insulin glargine 100 UNIT/ML Solution Pen-injector injection Inject 48 Units under the skin at bedtime. 15 mL 1 7 Active Insulin Pen Needle (PEN NEEDLES 31GX5/16 ) 31G X 8 MM Misc For use with Insulin ONCE daily. 100 Each 1 7 Active Insulin Syringe-Needle U-100 (INSULIN SYRINGE .3CC/31GX5/16 ) 31G X 5/16 0.3 ML Misc Use new syringe with each insulin injection. 120 Each 1 7 Active GLUCOSE TEST STRIPS PRESCRIPTION Use BEFORE MEALS and at BEDTIMEto test Blood Glucose 125 strip 1 7 Active GLUCOSE MONITOR LANCETS PRESCRIPTION Use BEFORE MEALS and at BEDTIME to test Blood Sugar. 150 Each 1 7 Active GLUCOSE MONITOR PRESCRIPTION Dispense ONE. Patient requires Insulin. 1 Each 1 7 Active Albuterol 108 (90 Base) MCG/ACT Aero Soln inhaler Inhale 1 puff every 6 hours as needed for Shortness of Breath. Active Chlorthalidone 25 MG tablet Take 1 tablet by mouth daily. Active Citalopram 20 MG tablet Take 1 tablet by mouth daily. Active cyanocobalamin 500 MCG tablet Take 1 tablet by mouth daily. Active Ergocalciferol 1.25 MG (75586 UT) capsule Take 1 capsule by mouth once a week. Active hydrOXYzine pamoate 25 MG capsule Take 1 capsule by mouth 3 times daily as needed for Anxiety. Active lamoTRIgine 25 MG tablet Take 1 tablet by mouth daily. Active Lisinopril 20 MG tablet Take 1.5 tablets by mouth daily. Active Metoprolol 50 MG tab regular release Take 1 tablet by mouth 2 times daily. Active Nortriptyline 25 MG capsule Take 1 capsule by mouth At bedtime. Active Ondansetron 4 MG tablet Take 1 tablet by mouth every 8 hours as needed for Nausea / Vomiting. Active pantoprazole Sodium 40 MG Pack Take 1 packet by mouth every morning before breakfast. Active Polyethylene glycol 17 g Pack packet Take 1 packet by mouth daily. Active traZODone 50 MG tablet Take 1 tablet by mouth At bedtime. Active Urea (CARMOL 40 EX) Apply topically. Active Brinzolamide-Qi monidine (Simbrinza) 1-0.2 % Suspension Apply 1 drop to eye. Pt given sample by Yuliya Puentes MD 11/09/23 Active Active Problems Problem Noted Date Diagnosed Date Type 2 diabetes mellitus wit h diabetic polyneuropathy, with long-term current use of insulin 08/25/2017 Type 2 diabetes mellitus wit h retinopathy, with long-term current use of insulin 08/25/2017 Hyperglycemia 03/31/2017 Mixed hyperlipidemia 03/31/2017 Assessment & Plan (03/31/2017 4:00 PM EST): Continue statin Benign hypertension 03/31/2017 Assessment & Plan (03/31/2017 4:01 PM EST): Moderately controlled Continue lisinopril and losartan Hypothyroid 03/31/2017 Assessment & Plan (03/31/2017 4:02 PM EST): Continue synthroid. Noncompliance 03/31/2017 Assessment & Plan (03/31/2017 4:07 PM EST): History of noncompliance with her medications per records and local pharmacy Her local pharmacy packages her pills to encourage compliance Spoke with her pharmacy and PCP office at length to clarify her current medication list. Atrial fibrillation 01/22/2017 Overview (01/22/2017): Added automatically from request for surgery [id number] Obesity: body mass index of 35.0-39.9 01/21/2017 Overview (08/25/2022): 08/23/22 IMO Update Bradycardia 01/30/2012 SSS (sick sinus syndrome) 01/30/2012 Syncope 12/15/2011 A-fib 12/11/2011 Coccydynia 03/15/2009 Sleep disorder 03/15/2009 Endometrial polyp 02/23/2009 Pseudoseizure 02/03/2009 Overview (08/25/2022): 08/23/22 IMO Update Assessment & Plan (03/31/2017 4:03 PM EST): Reported Hx of REPAIR WEAVER events with seizures, migraines, and TIA/CVA; recommended device to be upgraded to MRI compatible. S/P successful Extraction of PPM and implant of MRI PPM 03/30 without complications. Post procedure CXR: no pneumothorax Device interrogation normal Device teaching and F/U appointment provided by Device RN. Patient has a PMH of frequent wound infections: Endocrine consulted for tight BG control: wound healing. Bipolar depression 02/03/2009 Assessment & Plan (03/31/2017 3:59 PM EST): Continue home regime of lithium BID and seroquel QHS Anxiety state, unspecified 02/16/2008 Headache(784.0) 02/16/2008 Overview (02/03/2009): Multifactorial 2/2 migraines, Tension-THIBODEAUX. Scheduled for MRI on multiple occasions to eval for pseudotumor but pt has not followed through. Resolved Problems Problem Noted Date Diagnosed Date Resolved Date Left ear pain 02/23/2009 03/15/2009 Seizure 06/13/2008 02/03/2009 Pain in joint, ankle and foot 03/17/2008 02/03/2009 Other dyspnea and respiratory abnormality 03/17/2008 02/03/2009 Nausea alone 02/04/2008 02/03/2009 Vomiting 02/04/2008 02/03/2009 Abdominal pain, other specified site 02/04/2008 02/03/2009 Family History Medical History Relation Name Comments Coronary Artery Disease Father Diabetes Father Coronary Artery Disease Other Diabetes Other Hypertension Other Relation Name Status Comments Father Alive Mother Alive Other Social History Tobacco Use Types Packs/Day Years Used Date Smoking Tobacco: Former Cigarettes 0.3 15 0 11/22/1996 - 11/23/2011 Smokeless Tobacco: Never Tobacco Cessation:Counseling Given: Not Answered Comments:recently restarted Alcohol Use Standard Drinks/Week Comments No 0 (1 standard drink = 0.6 oz pur e alcohol) Comments No Sex and Gender Information Value Date Recorded Sex Assigned at Not on file Legal Sex Female 6:28 AM EST Gender Identity Female Sexual Orientation Not on file Last Filed Vital Signs Vital Sign Reading Time Taken Comments Blood Pressure 144/99 11/09/2023 3:47 PM EDT Pulse 90 11/09/2023 3:47 PM EDT Temperature 36.7 C (98 F) 09/01/2023 2:00 PM EDT Respiratory Rate 16 09/01/2023 2:00 PM EDT Oxygen Saturation 97% 09/01/2023 2:00 PM EDT Inhaled Oxygen Concentration - - Weight 81.4 kg (179 lb 7.3 oz) 04/01/2017 3:41 A M EST Height 157.5 cm (5' 2 ) 03/30/2017 5:00 PM EST Body Mass Index 32.82 03/30/2017 5:00 PM EST Plan of Treatment Upcoming Encounters Date Type Department Care Team (Late st Contact Info) Description 03/03/2025 8:00 AM EDT Office Visit [facility] [address] [place] [address] Geo Leach MD [address] [place] [phone] Health Maintenance Due Date Last Done Comments DIABETIC FOOT EXAM 1977 EYE EXAM 1977 HEPATITIS C VIRUS SCREENING 1977 TSH 1977 HIV SCREENING DISCUSSION 1992 HEP B VACCINE (1 of 3 - 19+ 3-dose series) 1996 CERVICAL CANCER SCREENING DISCUSSION 1998 URINE MICROALBUMIN TEST 06/02/2009 06/02/2008 LIPIDS 06/30/2009 06/30/2008 MAMMOGRAM SCREENING DISCUSSION 2017 POTASSIUM 04/01/2018 04/01/2017, 11/2016, 03/31/2017, Additional history exists COLORECTAL CANCER SCREENING DISCUSSION 2022 COVID-19 VACCINE (2 - 2023-2 5 season) 2024 02/16/2021 INFLUENZA VACCINE (#1) 2025 , 05/06/2023, 04/09/2022, Additional history exists HBA1C TEST 02/02/2025 08/02/2024, 02/23, 01/12/2024, Additional history exists TETANUS 02/22/2032 02/21/2022 TDAP (ADULT) Completed 02/21/2022 PNEUMOCOCCAL VACCINE SERIES Completed 04/24, 03/29/2023, 03/06/2021 Medical Devices Implanted Type Area Gym Teacher Device Identifier Shelf Expiration Date Model / Serial / Lot Lead Pace Standard Mdt 5076 45cm - S [id number] Implanted:Qty : 1 on 03/30/2017 by Fatmata Jose MD at [facility] Lead N/A: Heart [employer] PACER 01/20/2019 [id number] / [id number] / Pacer Dual Mri Advisa Chamber - [id number] Implanted:Qty : 1 on 03/30/2017 by Fatmata Jose MD at [facility] Pacemaker Left: Chest [employer] PACER 09/05/2018 [id number] / [id number] / Explanted Type Area Gym Teacher Device Identifier Shelf Expiration Date Model / Serial / Lot Lead St Justo 2087tc/46 - [id number] Implanted:Qty: 1 on 01/29/2012 by Ashish Long MD, PhD at [facility] Explanted:Qty: 1 on 03/30/2017 by Fatmata Jose MD at [facility] Lead ST JUSTO [employer] 11/21/[id number] / [id number] / Pacer Biotronik [id number] - [id number] Implanted:Qty: 1 on 01/29/2012 by Ashish Long MD, PhD at [facility] Explanted:Qty: 1 on 03/30/2017 by Geo Leach MD at [facility] Pacemaker N/A: Chest HIST BIOTRONIK 04/24/2013 [id number] / [id number] / Description:Device is set at DDD-CLS Implantable Auto Radiator Mechanic Me - [id number] Explanted:Qty: 1 on 01/29/2012 by Ashish Long MD, PhD at [facility] MEDTRONIC PACER [id number] / [id number] / Procedures Procedure Name Priority Date/Time Associated Diagnosis Comments CHEM 7 (LYTES,BUN,CREA,GLU C) Routine 04/01/2017 3:40 AM EST HEMOGLOBIN A1C Routine 03/13/2017 2:47 PM EDT Preop exam for internal medicine Atrial fibrillation, unspecified type SSS (sick sinus syndrome) Bradycardia Type 2 diabetes mellitus treated with insulin LIPID PANEL W CALCULATED LDL Routine 06/30/2008 10:11 AM EST Diabetes POCT URINE MICROALBUMIN/URINE CREAT/AL:CR Routine 06/02/2008 9:10 AM EST Diabetes from Last 3 Months or Most Recently Relevant to Health Maintenance Results * (ABNORMAL) CHEM 7 (LYTES,BUN,CREA,GLUC) (04/01/2017 3:40 AM EST) BUN 23(H) 7 - 22 mg/dL [facility] SODIUM 138 133 - 143 mmol/L [facility] Potassium 3.9 3.5 - 5.0 mmol/L [facility] CHLORIDE 107 98 - 108 mmol/L [facility] CARBON DIOXIDE (CO2) 26 22 - 30 mmol/L [facility] Glucose 94 70 - 99 mg/dL [facility] CREATININE SERUM 0.60 0.50 - 1.20 mg/dL [facility] ANION GAP 9 7 - 17 mmol/L [facility] BUN/CREA RATIO 38 [facility] OSMOLALITY (CALC) 292 278 - 305 mOsm/kg [facility] ESTIMATED GFR, NON AMER >60 >60 mL/min/1.7 3sqM [facility] ESTIMATED GFR, >60 >60 mL/min/1.7 3sqM [facility] 04/01/2017 3:40 AM EST 04/01/2017 4:01 AM EST us [place] LINTER TENDER-SUGARCANE PLANTER CHEMISTRY ORDERABLES Final Result [facility] [address] [place] [address] * (ABNORMAL) HEMOGLOBIN A1C (03/13/2017 2:47 PM EDT) HEMOGLOBIN A1C 10.2(H) 4.7 - 5.6 % [facility] Estimated Average Glucose 246 mg/dL [facility] 03/13/2017 2:47 PM EDT 03/13/2017 3:42 PM EDT Dannielle Palma LINTER TENDER-SUGARCANE PLANTER HEMATOLOGY ORDERABLES Fi nal Result Performing Organization Address [facility] Number [facility] [address] [place] [address] * (ABNORMAL) LIPID PANEL (06/30/2008 10:11 AM EST) CHOLESTEROL 168 <200 mg/dL [facility] Comment: [<200 mg/dL: Desirable] [200-239 mg/dL: Borderline High] [>239 mg/dL: High] TRIGLYCERIDES-TR IGE 331(H) <150 mg/dL [facility] Comment: [<150 mg/dL: Desirable] [150-199 mg/dL: Borderline] [200-499 mg/dL: High] [>500 mg/dL: Very High] HDL CHOLESTEROL 35(L) >60.0 mg/dL [facility] Comment: [<40 mg/dL: Low (High Risk)] [>59 mg/dL: High (Low Risk)] LDL CHOLESTEROL, CALCULATED 67 0 - 99 mg/dL [facility] Comment: [<100 mg/dL: Optimal] [100-129 mg/dL: Near Optimal] [130-159 mg/dL: Borderline High] [160-189 mg/dL: High] [>189 mg/dL: Very High] CHOLESTEROL, TOTAL/HDL 4.8(H) <4.5 [facility] Comment:[<4.5: Low risk] 06/30/2008 10:1 1 AM EST 06/30/2008 10:32 AM EST Kristi Wolf DO CHEMISTRY ORDERABLES Final Res ult Performing Organization Address City/[facility]/ZIP Co de Phone Number [facility] [address] [place] [address] * POCT URINE MICROALBUMIN (MICROAL/CR/AL:CR) (06/02/2008 9:10 AM EST) POCT URINE MICROALBUMIN 30 mg CREATININE, URINE POCT 200 mg 10 - 300 mg/dL ALBUMIN/CREATINI NE RATIO, URINE POCT 30 mg <=30 mg albumin/g creatinine Kristi Wolf DO POINT OF CARE TESTING Edited from Last 3 Months or Most Recently Relevant to Health Maintenance Insurance [facility] PLAN Advance Directives For more information, please contact: [phone] (7:30 AM - 6PM [facility], Thursday-Thursday) * Full Code (Latest Code Status on File) Date Activated Date Inactivated Comments 03/30/2017 9:46 AM 04/01/2017 3:40 PM Care Teams Motel Operator Relationship Specialty Start Date End Date DecGeo morales MD [address] [place] [phone] PCP - General Clinical Cardiac Electrophysiology 09/23/16 Cherelle Fierro MD [address] [place] [address], [address] [phone] Family Medicine 01/30/12 George Rob W, DO [address] [place] [phone] Consulting Physician Family Medicine 03/20/17
--- OUTSIDE RECORDS SUMMARY | 2024-12-02 15:45 | XMS_ITS | Clinical Summary ---
Author Organization [facility] Address [address] [place] [address] Care Team Providers Care Radiologist Physician Name Role Phone Mk Conti MD Unavailable [phone] Tona Nielsen Primary Care Provider [phone] Allergies Active Allergy Reactions Criticality Noted Date Comments Acetaminophen Other 10/01/2024 Adhesive Tape-Silicones Itching 07/15/2017 Codeine Other,Hives,Rash,GI intolerance High 02/16/2008 Get very angry Other reaction(s): Aggressive Behavior hives Fentanyl GI intolerance,Halluci nations,Nausea And Vomiting,Other High 09/22/2018 Other Reaction(s): Renal Failure Linezolid GI intolerance,Nausea And Vomiting,Other High 08/19/2022 Other Reaction(s): Renal Failure Lorazepam Hallucinations,Othe r High 12/08/2021 Other Reaction(s): Other (See Comments), Renal Failure Morphine GI intolerance,Other,R rosa High 02/16/2008 Other Reaction(s): Aggressive Behavior hives Get very angry Other reaction(s): Aggressive Behavior Nsaids (Non-Steroidal Anti-Inflammatory Drug) Unknown 03/30/2017 shuts my kidney's down Prochlorperazine Other 06/04/2023 Other Reaction(s): Other (See Comments) She reports Compazine made her feel anxious and grumpy She reports Compazine made her feel anxious and grumpy Propoxyphene GI intolerance,Nausea And Vomiting Low 05/25/2015 Propoxyphene N-Acetaminophen GI intolerance,Other Medium 02/16/2008 Tramadol GI intolerance,Other,H vera,Rash,Unknown High 12/15/2011 Other Reaction(s): Other (See Comments) seizures seizures Vancomycin Other,Hives High 01/21/2017 Other Reaction(s): Contraindication-M edical Surgical, KIDNEY & URINARY TRACT DISORDERS EXCEPT RENAL FAILURE W MAJOR CC, Other (See Comments) Shut down her kidneys Shuts my kidneys down Shuts kidney down Shuts my kidneys down Shut down her kidneys Shuts kidney down Medications ondansetron (Zofran) 4 mg tablet Take 4 mg by mouth every 8 (eight) hours if needed for nausea or vomiting. Active oxyCODONE-aceta minophen (Percocet) 5-325 mg tablet Take 1 tablet by mouth every 8 (eight) hours if needed for severe pain (8-10 pain score). Active pantoprazole (ProtoNix) 40 mg EC tablet Take 40 mg by mouth before breakfast. Do not crush, chew, or split. Active QUEtiapine (SEROquel) 400 mg tablet Take 400 mg by mouth at bedtime. Active pregabalin (Lyrica) 75 mg capsule Take 75 mg by mouth two times daily. Active diphenhydrAMINE -acetaminophen (Tylenol PM) 25-500 mg per tablet Take 1 tablet by mouth if needed at bedtime for sleep. Active levETIRAcetam (Keppra) 1,000 mg tablet Take 1,000 mg by mouth two times daily. Active tiZANidine (Zanaflex) 4 mg capsule Take 8 mg by mouth three times daily. Active aspirin 81 mg EC tablet Take 81 mg by mouth in the morning. Active levothyroxine (Synthroid, Levoxyl) 75 mcg tablet Take 75 mcg by mouth before breakfast. Active loratadine (Claritin) 10 mg tablet Take 10 mg by mouth in the morning. Active nortriptyline (Pamelor) 25 mg capsule Take 25 mg by mouth at bedtime. Active insulin lispro (HumaLOG) 100 unit/mL injection Inject under the skin with breakfast, with lunch, and with evening meal. Sliding scale Active citalopram (CeleXA) 40 mg tablet Take 40 mg by mouth in the morning. Active brexpiprazole (Rexulti) 1 mg tablet Take 1 mg by mouth in the morning. Active hydrOXYzine HCL (Atarax) 50 mg tablet Take 50 mg by mouth every 6 (six) hours if needed for itching. Active metoprolol succinate XL (Toprol-XL) 50 mg 24 hr tablet Take 50 mg by mouth in the morning. Do not crush or chew. Active urea (Carmol) 40 % cream Apply topically two times daily. Active polyethylene glycol (Glycolax) 17 gram packet Take 17 g by mouth if needed each day. Active paliperidone (Invega) 6 mg 24 hr tablet Take 6 mg by mouth in the morning. Do not crush, chew, or split. Active atorvastatin (Lipitor) 20 mg tabletIndicatio ns:NSTEMI (non-ST elevated myocardial infarction) (CMS/HCC) Take 1 tablet (20 mg) by mouth at bedtime. 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, with long-term current use of insulin 10/02/2024 Assessment & Plan (10/04/2024 12:14 PM EDT): - HgbA1C 10.7 - in insulin pump at home - Glu 96-211 - currently lantus 12 units bid - currently ISS Assessment & Plan (10/03/2024 10:35 AM EDT): - HgbA1C 10.7 - in insulin pump at home - Glu 115-413 - currently lantus 12 units bid - currently ISS - will discuss insulin dosing with pharmacy today Assessment & Plan (10/02/2024 11:21 AM EDT): - HgbA1C 10.7 - in insulin pump at home - Glu 134-249 - currently lantus 12 units bid - currently ISS Sick sinus syndrome 10/02/2024 Assessment & Plan (10/04/2024 12:14 PM EDT): - s/p pacemaker - interrogation ordered- asked RN to call rep Assessment & Plan (10/03/2024 10:35 AM EDT): - s/p pacemaker - interrogation ordered Assessment & Plan (10/02/2024 11:21 AM EDT): - s/p pacemaker - interrogation ordered Acute renal failure with acu te tubular necrosis superimposed on stage 3a chronic kidney disease 10/02/2024 Assessment & Plan (10/04/2024 12:14 PM EDT): -Cr improved today to 1.75 - renal US negative - neph consulted Assessment & Plan (10/03/2024 3:02 PM EDT): -Cr improved today to 1.89 - renal US negative - neph consulted Assessment & Plan (10/02/2024 11:21 AM EDT): - Cr 3.0 today - neph consulted Seizure 10/02/2024 Assessment & Plan (10/04/2024 12:14 PM EDT): - neuro consulted at admission - Continue LEV 1g BID at least until outpt neuro follow up - Patient will need referral to [facility] neurology (for epileptologist) at discharge. - Recommend PT/OT. - Neuro will sign off. Assessment & Plan (10/03/2024 10:35 AM EDT): - neuro consulted at admission - Continue LEV 1g BID at least until outpt neuro follow up - Patient will need referral to [facility] neurology (for epileptologist) at discharge. - Recommend PT/OT. - Neuro will sign off. Assessment & Plan (10/02/2024 11:11 AM EDT): - neuro consulted at admission - Continue LEV 1g BID at least until outpt neuro follow up - Patient will need referral to [facility] neurology (for epileptologist) at discharge. - Recommend PT/OT. - Neuro will sign off. Bipolar 1 disorder 10/02/2024 Assessment & Plan (10/04/2024 12:14 PM EDT): - continue celexa 40mg daily - continue pamelor 25mg nightly - continue seroquel 400mg nightly Assessment & Plan (10/03/2024 10:35 AM EDT): - continue celexa 40mg daily - continue pamelor 25mg nightly - continue seroquel 400mg nightly Assessment & Plan (10/02/2024 11:21 AM EDT): - continue celexa 40mg daily - continue pamelor 25mg nightly - continue seroquel 400mg nightly Acquired hypothyroidism 10/02/2024 Assessment & Plan (10/04/2024 12:14 PM EDT): - last TSH 3.71 - cont levothyroxine 75mcg daily Assessment & Plan (10/03/2024 10:35 AM EDT): - last TSH 3.71 - cont levothyroxine 75mcg daily Assessment & Plan (10/02/2024 11:21 AM EDT): - last TSH 3.71 - cont levothyroxine 75mcg daily Class 3 severe obesity due t o excess calories with serious comorbidity and body mass index (BMI) of 50.0 to 59.9 in adult 10/02/2024 Assessment & Plan (10/04/2024 12:14 PM EDT): - encourage weight loss - may benefit from a GLP-1 inhibitor, defer to PCP Assessment & Plan (10/03/2024 10:35 AM EDT): - encourage weight loss - may benefit from a GLP-1 inhibitor, defer to PCP Assessment & Plan (10/02/2024 11:21 AM EDT): - encourage weight loss - may benefit from a GLP-1 inhibitor, defer to PCP Plantar ulcer of left foot, limited to breakdown of skin 10/02/2024 Assessment & Plan (10/04/2024 12:14 PM EDT): - vascular surgery consulted No plans for debridement at this time. No antibiotics necessary. Upon inspection today this is not ulcer but rather a dry callus, no open tissue present. Recommend to keep callus clean and dry and follow up outpatient follow up with her continuity coordinator for routine callus paring. No need for paring this admission. Arterial studies done without evidence of significant occlusive disease. Recommend tight glycemic control/diabetes management. Keep feet clean and lotion daily at home Thank you for allowing us to participate in patient's care. Vascular/Wound will sign off now, please contact us with any additional concerns. No need for outpatient follow up with our service at this time Assessment & Plan (10/03/2024 3:02 PM EDT): - vascular surgery consulted No plans for debridement at this time. No antibiotics necessary. Upon inspection today this is not ulcer but rather a dry callus, no open tissue present. Recommend to keep callus clean and dry and follow up outpatient follow up with her continuity coordinator for routine callus paring. No need for paring this admission. Arterial studies done without evidence of significant occlusive disease. Recommend tight glycemic control/diabetes management. Keep feet clean and lotion daily at home Thank you for allowing us to participate in patient's care. Vascular/Wound will sign off now, please contact us with any additional concerns. No need for outpatient follow up with our service at this time Assessment & Plan (10/02/2024 11:11 AM EDT): - vascular surgery consulted No plans for debridement at this time No antibiotics necessary Wash wound daily with soap and water, keep dry Will obtain arterial studies to evaluate for peripheral vascular disease NSTEMI (non-ST elevated myocardial infarction) 0 10/01/2024 Assessment & Plan (10/04/2024 12:14 PM EDT): - cards consulted - likely demand ischemia in setting of acute kidney injury, and seizure episode and elevated lactate. [employer] device interrogation No current indication for heparin as her troponin is trending downward and patient is asymptomatic and having epistaxis. Aspirin 81 mg daily and Toprol 50 mg. Further recommendations to follow depending on echocardiogram results. Assessment & Plan (10/03/2024 10:35 AM EDT): - cards consulted - likely demand ischemia in setting of acute kidney injury, and seizure episode and elevated lactate. Medtronic device interrogation No current indication for heparin as her troponin is trending downward and patient is asymptomatic and having epistaxis. Aspirin 81 mg daily and Toprol 50 mg. Further recommendations to follow depending on echocardiogram results. Cardiology team will continue to follow Assessment & Plan (10/02/2024 11:21 AM EDT): - cards consulted - likely demand ischemia in setting of acute kidney injury, and seizure episode and elevated lactate. Obtain A1c and Lipid panel Obtain transthoracic echocardiogram Medtronic device interrogation No current indication for heparin as her troponin is trending downward and patient is asymptomatic and having epistaxis. Aspirin 81 mg daily and Toprol 50 mg. Further recommendations to follow depending on echocardiogram results. Cardiology team will continue to follow Encounters Date Type Department Care Team Description 10/01/2024 9:19 AM EDT - 10/05/2024 5:01 PM EDT Hospital Encounter [facility] [id number] Surgery Stepdown [address] [place] [address] Andrzej Henry MD Schwarz, Stephanie, DO Saad, Hani, MD NSTEMI (non-ST elevated myocardial infarction) (CMS/HCC) (Primary Dx); Seizure (CMS/[facility]) Discharge Disposition: Home-Health Care [facility] (06) 10/01/2024 Travel from Last 3 Months Social History Tobacco Use Types Packs/Day Years Used Date Smoking Tobacco: Every Day Cigarettes Smokeless Tobacco: Never Tobacco Cessation:Ready to Q uit: Not Asked; Counseling Given: Not Answered Alcohol Use Standard Drinks/Week Comments Never 0 (1 standard drink = 0.6 oz pur e alcohol) [facility] Utilities Answer Date Recorded In the past 12 months has e [employer], gas, oil, or water [employer] threatened to shut off services in your home? No 10/01/2024 Humiliation, Afraid, Rape, and Kick questionnair e Answer Date Recorded Within the last year, have y ou been afraid of your partner or ex-partner? No 10/01/2024 Emotionally Abused Not on file 10/01/2024 Physically Abused Not on file 10/01/2024 Sexually Abused Not on file 10/01/2024 Overall Financial Resource Strain (CARDIA) Answe r Date Recorded How hard is it for you to pa y for the very basics like food, housing, medical care, and heating? Not hard at all 10/01/2024 Transportation Answer Date Recorded In the past 12 months, has l ack of transportation kept you from medical appointments or from getting medications? No 10/01/2024 Lack of Transportation (Non-Medical) Not on file 10/01/2024 Housing Stability Vital Sign Answer Chacorta e Recorded In the last 12 months, was t here a time when you were not able to pay the mortgage or rent on time? No 10/01/2024 Number of Times Moved in the Last Year Not on fi le 10/01/2024 At any time in the past 12 m [facility], were you homeless or living in a jail (including now)? No 10/01/2024 Hunger Vital Sign Answer Date Recorded Within the past 12 months, y ou worried that your food would run out before you got the money to buy more. Never true 10/02/19 25 Ran Out of Food in the Last Year Not on file 10/01/2024 Comments Unknown Sex and Gender Information Value Date Recorded Sex Assigned at Not on file Legal Sex Female 9:59 PM EDT Gender Identity Not on file Sexual Orientation Not on file Last Filed Vital Signs Vital Sign Reading Time Taken Comments Blood Pressure 107/68 10/05/2024 12:00 PM EDT Pulse 60 10/05/2024 12:00 PM EDT Temperature 36.2 C (97.2 F) 10/05/2024 12:00 PM EDT Respiratory Rate 22 10/05/2024 12:00 PM EDT Oxygen Saturation 97% 10/05/2024 12:00 PM EDT Inhaled Oxygen Concentration - - Weight 140 kg (309 lb) 10/05/2024 5:00 AM EDT Height 157.5 cm (5' 2.01 ) 10/01/2024 9:31 AM ED T Body Mass Index 56.5 10/01/2024 9:31 AM EDT Plan of Treatment Health Maintenance Due Date Last Done Comments CT Colonography 1977 Colonoscopy 1977 Colorectal Cancer Screening 1977 FIT-DNA 1977 FIT 1977 FOBT 1977 Sigmoidoscopy 1977 Diabetes: Retinopathy Screening 1987 Depression Screening 1989 Hepatitis B Vaccines (1 of 3 - 19+ 3-dose series) 1996 Pap Smear 1998 Cervical Cancer Screening 2007 HPV/Cotest 2007 Mammogram 2017 COVID-19 Vaccine ( season) 2024 02/16/2021, 02/16/2021, 12/02/2020 Diabetes: Hemoglobin A1C 01/01/2025 025, 08/02/2024, 01/12/2024, Additional history exists Influenza Vaccine (#1) 2025 , 05/06/2023, 04/09/2022, Additional history exists Zoster Vaccines (1 of 2) 2027 Adult Tetanus 02/22/2032 02/21/2022 Pneumococcal Vaccine: Pediatrics (0 to 5 Years) and At-Risk Patients (6 to 64 Years) Completed 05/06/2023, 03/29/2023, 03/06/2021 HIB Vaccines Aged Out No longer eligi ble based on patient's age to complete this topic HPV Vaccines Aged Out No longer eligi ble based on patient's age to complete this topic IPV Vaccines Aged Out No longer eligi ble based on patient's age to complete this topic Meningococcal B Vaccine Aged Out No l onger eligible based on patient's age to complete this topic Meningococcal Vaccine Aged Out No tamara willem eligible based on patient's age to complete this topic Rotavirus Vaccines Aged Out No longer eligible based on patient's age to complete this topic Procedures Procedure Name Priority Date/Time Associated Diagnosis Comments POCT GLUCOSE METER UNSOLICITED RESULTS Routine 10/05/2024 11:03 AM EDT POCT GLUCOSE METER UNSOLICITED RESULTS Routine 10/05/2024 7:26 AM EDT CBC WITH AUTO DIFFERENTIAL Pending Discharge 10/05/2024 6:22 AM EDT CBC AND DIFFERENTIAL Routine 10/05/2024 6:22 AM EDT BASIC METABOLIC PANEL Pending Discharge 10/05/2024 6:22 AM EDT POCT GLUCOSE METER UNSOLICITED RESULTS Routine 10/04/2024 8:13 PM EDT POCT GLUCOSE METER UNSOLICITED RESULTS Routine 10/04/2024 5:36 PM EDT POCT GLUCOSE METER UNSOLICITED RESULTS Routine 10/04/2024 11:51 AM EDT CALCIUM, IONIZED Pending Discharge 10/04/2024 11:16 AM EDT POCT GLUCOSE METER UNSOLICITED RESULTS Routine 10/04/2024 7:32 AM EDT CBC WITH AUTO DIFFERENTIAL Pending Discharge 10/04/2024 5:24 AM EDT CBC AND DIFFERENTIAL Routine 10/04/2024 5:24 AM EDT BASIC METABOLIC PANEL Pending Discharge 10/04/2024 5:24 AM EDT POCT GLUCOSE METER UNSOLICITED RESULTS Routine 10/03/2024 8:17 PM EDT POCT GLUCOSE METER UNSOLICITED RESULTS Routine 10/03/2024 4:31 PM EDT POCT GLUCOSE METER UNSOLICITED RESULTS Routine 10/03/2024 11:33 AM EDT ALBUMIN Add-On 10/03/2024 10:44 AM EDT CBC WITH AUTO DIFFERENTIAL Routine 10/03/2024 10:44 AM EDT CBC AND DIFFERENTIAL Routine 10/03/2024 10:44 AM EDT BASIC METABOLIC PANEL Routine 10/03/2024 10:44 AM EDT VASC US LOWER EXTREMITY ARTERIAL DUPLEX BILATERAL Routine 10/03/2024 8:37 AM EDT POCT GLUCOSE METER UNSOLICITED RESULTS Routine 10/03/2024 7:21 AM EDT POCT GLUCOSE METER UNSOLICITED RESULTS Routine 10/02/2024 11:17 PM EDT POCT GLUCOSE METER UNSOLICITED RESULTS Routine 10/02/2024 8:48 PM EDT POCT GLUCOSE METER UNSOLICITED RESULTS Routine 10/02/2024 4:38 PM EDT SODIUM, URINE, RANDOM Routine 10/02/2024 1:01 PM EDT CREATININE, URINE, RANDOM Routine 10/02/2024 1:01 PM EDT PROTEIN, URINE, RANDOM Routine 10/02/2024 1:01 PM EDT URINALYSIS WITH MICROSCOPIC Routine 10/02/2024 1:01 PM EDT US RENAL COMPLETE Routine 10/02/2024 11: 58 AM EDT POCT GLUCOSE METER UNSOLICITED RESULTS Routine 10/02/2024 11:07 AM EDT POCT GLUCOSE METER UNSOLICITED RESULTS Routine 10/02/2024 7:15 AM EDT CK Add-On 10/02/2024 4:42 AM EDT LAVENDER TOP Routine 10/02/2024 4:42 AM EDT EXTRA TUBES Routine 10/02/2024 4:42 AM EDT MAGNESIUM Routine 10/02/2024 4:42 AM EDT BASIC METABOLIC PANEL Routine 10/02/2024 4:42 AM EDT POCT GLUCOSE METER UNSOLICITED RESULTS Routine 10/02/2024 12:10 AM EDT POCT GLUCOSE METER UNSOLICITED RESULTS Routine 10/01/2024 8:46 PM EDT POCT GLUCOSE METER UNSOLICITED RESULTS Routine 10/01/2024 4:05 PM EDT LIMITED ECHO (TTE) W/ LIMITED DOPPLER, COLOR FLOW AND IMAGING AGENT Routine 10/01/2024 3:20 PM EDT LACTIC ACID WITH 4 HOUR REFLEX Timed 10/01/2024 2:17 PM EDT XR CHEST 1 VIEW Routine 10/01/2024 1:28 PM EDT POCT GLUCOSE METER UNSOLICITED RESULTS Routine 10/01/2024 12:47 PM EDT HEMOGLOBIN A1C Add-On 10/01/2024 11:02 AM EDT TSH3 REFLEX TO FT4 Routine 10/01/2024 11 :02 AM EDT LIPID PANEL Routine 10/01/2024 11:02 AM EDT CBC WITH AUTO DIFFERENTIAL STAT 10/01/2024 11:02 AM EDT B-TYPE NATRIURETIC PEPTIDE STAT 10/01/2024 11:02 AM EDT LACTIC ACID WITH 4 HOUR REFLEX Routine 10/01/2024 11:02 AM EDT HIGH SENSITIVITY TROPONIN I STAT 10/01/2024 11:02 AM EDT COMPREHENSIVE METABOLIC PANEL STAT 10/01/2024 11:02 AM EDT MAGNESIUM STAT 10/01/2024 11:02 AM EDT CBC AND DIFFERENTIAL STAT 10/01/2024 11:02 AM EDT ECG 12-LEAD Routine 10/01/2024 10:26 AM EDT from Last 3 Months Results * (ABNORMAL) POCT glucose meter (10/05/2024 11:03 AM EDT) Only the most recent of19 resultswithin the time period is included. [facility] Signature Glucose POC 115(H) 70 - 105 mg/dL 10/05/2024 11:14 AM EDT [facility] ([facility]) Comment:lhagema Blood Capillary blood specimen / Unknown 10/05/2024 11:03 AM EDT 10/05/2024 11:14 AM EDT Narrative [facility] ([facility]) - 10/05/2024 11:14 AM EDT Waived Testing in the ED is performed under the ED CLIA certificate #[id number]. us Maye Negrete DO LAB BLOOD ORDERABLES Final Result [facility] ([facility]) [address] [id number] * (ABNORMAL) CBC auto differential (10/05/2024 6:22 AM EDT) Only the most recent of4 resultswithin the time period is included. Auto WBC 5.47 4.00 - 10.60 10*3/uL 10/05/2024 7:02 AM EDT [facility] ([facility]) RBC 3.36(L) 3.80 - 5.00 10*6/uL 10/05/2024 7:02 AM EDT [facility] ([facility]) Hemoglobin 10.2(L) 12.0 - 15.0 g/dL 10/05/2024 7:02 AM [facility] ([facility]) Hematocrit 31.5(L) 36.0 - 45.0 % 10/05/2024 7:02 AM [facility] ([facility]) MCV 93.8 82.0 - 98.0 fL 10/05/2024 7:02 AM [facility] ([facility]) MCH 30.4 27.0 - 33.0 pg 10/05/2024 7:02 AM [facility] ([facility]) MCHC 32.4 32.0 - 35.0 g/dL 10/05/2024 7:02 AM [facility] ([facility]) RDW 13.5 11.5 - 15.0 % 10/05/2024 7:02 AM [facility] ([facility]) Neutrophils % 45.2 40.0 - 72.0 % 10/05/2024 7:02 AM [facility] ([facility]) Lymphocytes % 41.0 20.0 - 45.0 % 10/05/2024 7:02 AM [facility] ([facility]) Monocytes % 8.8 5.0 - 12.0 % 10/05/2024 7:02 AM [facility] ([facility]) Eosinophils % 3.5 0.0 - 6.0 % 10/05/2024 7:02 AM [facility] ([facility]) Basophils % 1.1(H) 0.0 - 1.0 % 10/05/2024 7:02 AM [facility] ([facility]) Neutrophils Absolute 2.48 1.60 - 7.60 10*3/uL 10/05/2024 7:02 AM [facility] ([facility]) Lymphocytes Absolute 2.24 1.20 - 4.00 10*3/uL 10/05/2024 7:02 AM [facility] ([facility]) Monocytes Absolute 0.48 0.10 - 1.00 10*3/uL 10/05/2024 7:02 AM [facility] ([facility]) Eosinophils Absolute 0.19 0.00 - 0.50 10*3/uL 10/05/2024 7:02 AM [facility] ([facility]) Basophils Absolute 0.06 0.00 - 0.20 10*3/uL 10/05/2024 7:02 AM EDT [facility] ([facility]) Platelets 271 150 - 400 10*3/uL 10/05/2024 7:02 AM EDT [facility] ([facility]) nRBC % 0.0 0 % 10/05/2024 7:02 AM EDT [facility] ([facility]) Immature Granulocytes % 0.4 0.0 - 1.0 % 10/05/2024 7:02 AM EDT [facility] ([facility]) Immature Granulocytes Absolute 0.02 0.00 - 0.20 10*3/uL 10/05/2024 7:02 AM EDT [facility] ([facility]) Blood Venous blood specimen / Unknown Existing Catheter / Unknown 10/05/2024 6:22 AM EDT 10/05/2024 6:46 AM EDT Maye Negrete DO LAB BLOOD ORDERABLES Final Result [facility] ([facility]) [address] [place] [address] * (ABNORMAL) Basic metabolic panel (10/05/2024 6:22 AM EDT) Only the most recent of4 resultswithin the time period is included. Sodium 142 136 - 145 mmol/L 10/05/2024 7:07 AM EDT [facility] ([facility]) Potassium 4.1 3.5 - 5.1 mmol/L 10/05/2024 7:07 AM EDT [facility] ([facility]) Chloride 109(H) 98 - 107 mmol/L 10/05/2024 7:07 AM EDT [facility] ([facility]) CO2 28 21 - 31 mmol/L 10/05/2024 7:07 AM EDT [facility] ([facility]) BUN 28(H) 7 - 25 mg/dL 10/05/2024 7:07 AM EDT [facility] ([facility]) Creatinine 1.26(H) 0.60 - 1.20 mg/dL 10/05/2024 7:07 AM EDT [facility] ([facility]) Glucose 108(H) 70 - 100 mg/dL 10/05/2024 7:07 AM EDT [facility] ([facility]) Calcium 8.4(L) 8.6 - 10.3 mg/dL 10/05/2024 7:07 AM EDT [facility] ([facility]) Anion Gap 9 7 - 20 mmol/L 10/05/2024 7:07 AM EDT [facility] ([facility]) eGFR 53.0(L) >60.0 mL/min/1. 73m*2 10/05/2024 7:07 AM EDT [facility] LAB ([facility]) Comment:The [facility] s estimated glomerular filtration rate (eGFR) will no longer include consideration of race in its calculation. The [employer] s eGFR Task Force developed new recommendations for the estimation of the glomerular filtration rate in the [place] They recommend immediate implementation of the new equation refit without the race variable in all laboratories because the calculation does not include race. In addition to not including race in the calculation and reporting, it included diversity in its development, and has acceptable performance characteristics and potential consequences that do not disproportionately affect any one group of individuals. BUN/Creatinine Ratio 22.2 09/22 7:07 AM EDT [facility] ([facility]) Blood Venous blood specimen / Unknown Existing Catheter / Unknown 10/05/2024 6:22 AM EDT 10/05/2024 6:45 AM EDT Maye Negrete DO LAB BLOOD ORDERABLES Final Result [facility] ([facility]) [address] [place] [address] * Calcium, ionized (10/04/2024 11:16 AM EDT) Calcium, Ion 1.23 1.15 - 1.33 mmol/L 10/04/2024 11:22 AM EDT [facility] RESPIRATORY THERAPY Blood Blood sample taken from central line / Unknown Existing Catheter / Unknown 10/04/2024 11:16 AM EDT 10/04/2024 11:20 AM EDT us Maye Negrete DO LAB BLOOD ORDERABLES Final Result [facility] RESPIRATORY THERAPY [address] [place] [address], [place] * (ABNORMAL) Albumin (10/03/2024 10:44 AM EDT) Albumin 2.5(L) 3.5 - 5.7 g/dL 10/03/2024 12:34 PM EDT [facility] ([facility]) Blood Venous blood specimen / Unknown Existing Catheter / Unknown 10/03/2024 10:44 AM EDT 10/03/2024 10:50 AM EDT us Leonardo Moyer MD LAB BLOOD ORDERABLES Final Re sult Performing Organization Address City/[facility]/ZIP Co de Phone Number [facility] ([facility]AK[facility]) [address] [place] [address] * Vascular US lower extremity arterial duplex bilateral (10/03/2024 8:37 AM EDT) Anatomical Region Laterality Modality Lower Extremities Ultrasound 10/03/2024 8:34 AM EDT Impressions 10/03/2024 5:30 PM EDT Right: Heterogeneous plaque with multiphasic Doppler signals and no significant spectral Doppler or color flow disturbances noted in common femoral, deep femoral, superficial femoral, popliteal, posterior tibial, peroneal, anterior tibial, and dorsalis pedis arteries. Left: Heterogeneous plaque with multiphasic Doppler signals and no significant spectral Doppler or color flow disturbances noted in common femoral, deep femoral, superficial femoral, popliteal, posterior tibial, peroneal, anterior tibial, and dorsalis pedis arteries. Right: Heterogeneous plaque with multiphasic Doppler signals and no significant spectral Doppler or color flow disturbances noted in common femoral, deep femoral, superficial femoral, popliteal, posterior tibial, peroneal, anterior tibial, and dorsalis pedis arteries. Left: Heterogeneous plaque with multiphasic Doppler signals and no significant spectral Doppler or color flow disturbances noted in common femoral, deep femoral, superficial femoral, popliteal, posterior tibial, peroneal, anterior tibial, and dorsalis pedis arteries. Conclusions: No evidence of significant arterial occlusive disease both legs. Narrative 10/03/2024 5:30 PM EDT Procedure: The lower extremity arteries were evaluated by ultrasound, Doppler flow, color Doppler, spectral analysis, and velocity measurement. This included evaluation of the peak systolic velocity. The segments evaluated including the common femoral artery, proximal superficial femoral artery, mid-superficial femoral artery, distal superficial femoral artery, popliteal artery, proximally and distally all calf arteries. Evaluation performed of stent (s) if present. Procedure: The lower extremity arteries were evaluated by ultrasound, Doppler flow, color Doppler, spectral analysis, and velocity measurement. This included evaluation of the peak systolic velocity. The segments evaluated including the common femoral artery, proximal superficial femoral artery, mid-superficial femoral artery, distal superficial femoral artery, popliteal artery, proximally and distally all calf arteries. Evaluation performed of stent (s) if present. Procedure Note Handy Thompson MD - 10/03/2024 Procedure: The lower extremity arteries were evaluated by ultrasound,Doppler flow, color Doppler, spectral analysis, and velocitymeasurement. This included evaluation of the peak systolic velocity. The segmentsevaluated including the common femoral artery, proximal superficialfemoral artery, mid-superficial femoral artery, distal superficial femoralartery, popliteal artery, proximally and distally all calf arteries.Evaluation performed of stent (s) if present. Procedure: The lower extremity arteries were evaluated by ultrasound,Doppler flow, color Doppler, spectral analysis, and velocitymeasurement. This included evaluation of the peak systolic velocity. The segmentsevaluated including the common femoral artery, proximal superficialfemoral artery, mid-superficial femoral artery, distal superficial femoralartery, popliteal artery, proximally and distally all calf arteries.Evaluation performed of stent (s) if present. IMPRESSION: Right: Heterogeneous plaque with multiphasic Doppler signals and nosignificant spectral Doppler or color flow disturbances noted in commonfemoral, deep femoral, superficial femoral, popliteal, posterior tibial,peroneal, anterior tibial, and dorsalis pedis arteries. Left: Heterogeneous plaque with multiphasic Doppler signals and nosignificant spectral Doppler or color flow disturbances noted in commonfemoral, deep femoral, superficial femoral, popliteal, posterior tibial,peroneal, anterior tibial, and dorsalis pedis arteries. Right: Heterogeneous plaque with multiphasic Doppler signals and nosignificant spectral Doppler or color flow disturbances noted in commonfemoral, deep femoral, superficial femoral, popliteal, posterior tibial,peroneal, anterior tibial, and dorsalis pedis arteries. Left: Heterogeneous plaque with multiphasic Doppler signals and nosignificant spectral Doppler or color flow disturbances noted in commonfemoral, deep femoral, superficial femoral, popliteal, posterior tibial,peroneal, anterior tibial, and dorsalis pedis arteries. Conclusions: No evidence of significant arterial occlusive disease bothlegs. Handy Thompson MD IMG CV VASCULAR PROCEDURES Ioana l Result * (ABNORMAL) Urinalysis with microscopic (10/02/2024 1:01 PM EDT) Color, Urine Yellow Colorless, Yellow, Light-Yellow 10/02/2024 1:23 PM EDT [facility] ([facility]) Clarity, Urine Clear Clear 10/02/2024 1:23 PM EDT [facility] ([facility]) Specific [place], Urine 1.020 1.010 - 1.030 10/02/2024 1:23 PM EDT [facility] ([facility]) pH, Urine 5.0 5.0 - 8.0 pH 10/02/2024 1:23 PM [facility] ([facility]) Leukocytes, Urine Moderate(A) Negative 10/02/2024 1:23 PM EDT [facility] ([facility]) Nitrite, Urine Negative Negative 10/02/2024 1:23 PM EDT [facility] ([facility]) Protein, Urine 30(A) Negative mg/dL 10/02/2024 1:23 PM T [facility] ([facility]) Glucose, Urine >=1000(A) Normal mg/dL 10/02/2024 1:23 PM EDT [facility] ([facility]) Bilirubin, Urine Negative Negative 10/02/2024 1:23 PM EDT [facility] ([facility]) Ketones, Urine Negative Negative mg/dL 10/02/2024 1:23 PM EDT [facility] ([facility]) Urobilinogen, Urine Normal Normal mg/dL 10/02/2024 1:23 PM EDT [facility] ([facility]) Blood, Urine Negative Negative 10/02/2024 1:23 PM EDT [facility] ([facility]) RBC, Urine 0-2 None Seen, 0-2 /HPF 10/02/2024 1:23 PM EDT [facility] ([facility]) WBC, Urine 11-20(A) None Seen, 0-2 /HPF 10/02/2024 1:23 PM EDT [facility] ([facility]) Squamous Epithelial, Urine Occasional None Seen, Occasional, Few /LPF 10/02/2024 1:23 PM EDT [facility] ([facility]) Casts, Urine Present(A) None Seen /LPF 10/02/2024 1:23 PM EDT [facility] ([facility]) Hyaline Casts, UA 3-5(A) 0 - 2 /LPF 10/02/2024 1:23 PM EDT [facility] ([facility]) Urine Urine specimen obtained by clean catch procedure / Unknown Non-blood Collection / Unknown 10/02/2024 1:01 PM EDT 10/02/2024 1:07 PM EDT us Jo-Ann Fowler MD LAB URINE ORDERABLES Final Result [facility]) [address] [place] [address] * Sodium, urine, random (10/02/2024 1:01 PM EDT) Sodium, Ur 28 mmol/L 10/02/2024 1:23 PM EDT [facility] ([facility]) Urine Urine specimen obtained by clean catch procedure / Unknown Non-blood Collection / Unknown 10/02/2024 1:01 PM EDT 10/02/2024 1:07 PM EDT us Jo-Ann Fowler MD LAB URINE ORDERABLES Final Result [facility] ([facility]) [address] [place] [address] * Protein, urine, random (10/02/2024 1:01 PM EDT) Protein, Ur 61.3 mg/dL 10/02/2024 1:23 PM EDT [facility] ([facility]) Comment:There are no establi shed reference values for random urine specimens. Urine Urine specimen obtained by clean catch procedure / Unknown Non-blood Collection / Unknown 10/02/2024 1:01 PM EDT 10/02/2024 1:07 PM EDT us Jo-Ann Fwoler MD LAB URINE ORDERABLES Final Result [facility] ([facility]) [address] [place] [id number] * Creatinine, urine, random (10/02/2024 1:01 PM EDT) Creatinine, Ur 200.0 26 - 299 mg/dL 10/02/2024 1:23 PM EDT [facility] ([facility]) Urine Urine specimen obtained by clean catch procedure / Unknown Non-blood Collection / Unknown 10/02/2024 1:01 PM EDT 10/02/2024 1:07 PM EDT us Jo-Ann Fowler MD LAB URINE ORDERABLES Final Result [facility] ([facility]) [address] [place] [id number] * US renal complete (10/02/2024 11:58 AM EDT) Anatomical Region Laterality Modality Kidney Ultrasound 10/02/2024 12:3 1 PM EDT Impressions 10/02/2024 12:34 PM EDT Negative ultrasound of the kidneys and urinary bladder. Electronically signed: Chester Cr. Narrative 10/02/2024 12:34 PM EDT History: consuelo Exam/Technique: Ultrasound of the kidneys and urinary bladder Comparison: 10/17/2013 Findings: There is no collecting system dilatation in either kidney. No focal renal lesions are displayed on either side. The right kidney measures 10.5 centimeters in length , and the left kidney 10.7 centimeters . The full urinary bladder measures 456 ml, and displays no gross focal abnormalities. The patient is unable to void Procedure Note Chester Cr MD - 10/02/2024 History: consuelo Exam/Technique: Ultrasound of the kidneys and urinary bladder Comparison: 10/17/2013 Findings: There is no collecting system dilatation in either kidney. Nofocal renal lesions are displayed on either side. The right kidney jckicqet24.5 centimeters in length , and the left kidney 10.7 centimeters . The full urinary bladder measures 456 ml, and displays no gross focal abnormalities. The patient is unable to void IMPRESSION: Negative ultrasound of the kidneys and urinary bladder. Electronically signed: Chester Cr. us Jo-Ann Fowler MD IMG US PROCEDURES Final Re sult * Lavender Top (10/02/2024 4:42 AM EDT) Extra Tube Hold for add-ons. 10/02/2024 7:01 AM EDT [facility] ([facility]) Comment:Auto resulted. Blood Venous blood specimen / Unknown 10/02/2024 4:42 AM EDT 10/02/2024 5:52 AM EDT Andrzej Henry MD LAB BLOOD ORDERABLES Final Resul t [facility] ([facility]) [address] [place] [address] * Magnesium (10/02/2024 4:42 AM EDT) Only the most recent of2 resultswithin the time period is included. Magnesium 2.2 1.9 - 2.7 mg/dL 10/02/2024 6:59 AM EDT [facility] ([facility]) Blood Venous blood specimen / Unknown Existing Catheter / Unknown 10/02/2024 4:42 AM EDT 10/02/2024 4:58 AM EDT us Korin Ansari [employer]DER LAB BLOOD ORDERABLES Final Resu lt [facility] ([facility]) [address] [place] [address] * CK (10/02/2024 4:42 AM EDT) Total CK 56.0 30.0 - 223.0 U/L 10/02/2024 11:10 AM EDT [facility] ([facility]) Blood Venous blood specimen / Unknown Existing Catheter / Unknown 10/02/2024 4:42 AM EDT 10/02/2024 4:58 AM EDT us Jo-Ann Fowler MD LAB BLOOD ORDERABLES Final Result Performing Organization Address City/[facility]/ZIP Co de Phone Number [facility] ([facility]) [address] [place] [address] * LIMITED ECHO (TTE) W/ LIMITED DOPPLER, COLOR FLOW AND IMAGING AGENT (10/01/2024 3:20 PM EDT) Anatomical Region Laterality Modality Other 10/01/2024 3:03 PM EDT Narrative 10/02/2024 1:31 PM EDT 1 1 [facility] Heart Station [address] [place] [address] [phone] (fax) Echocardiogram-[facility] Name: LISA ORGAN Study Date: 10/01/2024 03:03 PM B/P: 127 mmHg/111 mmHg HR: Date of : 1975 Location: [facility] Height: 62 in. Age: 49 year(s) Patient Room: 5160 Weight: 297 lb. Gender: Female Patient Status: InPt BSA: 2.26 m2 Indication: Chest Pain Examination: Limited Echo/Limited Doppler, Color flow imaging, Lumason Contrast Image Quality: Poor sound transmission due to body habitus Patient Consent: Procedure explained to patient Exam Details Technical Limitations: Echocardiographic views were limited by poor acoustic window availability Conclusions Left Ventricle: The left ventricle appears normal in size. Global left ventricular systolic function is difficult to assess but appears preserved. Left ventricular wall thickness is normal. No regional wall motion abnormality. Grade 2, moderate diastolic dysfunction (pseudonormalized LV filling pattern). Right Ventricle: A pacemaker wire is seen in the right atrium and right ventricle. Doppler studies suggest normal right sided pressures. Left Atrium: The left atrium appears normal in size. Overall Conclusions: Due to suboptimal imaging Lumason contrast was administered for opacification and better delineation of endocardial borders. All 10 mL of Lumason used; however could not be appreciated Very limited windows due to patient body habitus No significant valvular abnormalities Measurements Left Ventricle Label Value Normal Value LVOT VTI 12.8 cm (18cm - 22cm) LVOT PGmax 2 mmHg LVOT PGmean 1 mmHg Mitral Valve Label Value Normal Value MV E Vmax 1.14 m/s MV A Vmax 0.92 m/s MV E/A 1.24 MV E/E' lateral 25.6 MV E' lateral 0.04 m/s Tricuspid Valve Label Value Normal Value RA Pressure 3 mmHg RVSP 12 mmHg TR Vmax 1.48 m/s Valvular Assessment LVOT 0.7 - 1.1 m/sec Aortic Valve 1.0 - 1.7 m/sec Mitral Valve 0.6 - 1.3 m/sec Tricuspid Valve 0.3 - 0.7 m/sec Pulmonic Valve 0.6 - 0.9 m/sec Regurgitation No No Trivial No Stenosis No No No No Max Velocity 0.69 m/sec 1.14 m/sec 0.87 m/s Max Gradient 3.00 mmHg Findings Left Ventricle: The left ventricle appears normal in size. Global left ventricular systolic function is difficult to assess but appears preserved. Left ventricular wall thickness is normal. No regional wall motion abnormality. Grade 2, moderate diastolic dysfunction (pseudonormalized LV filling pattern). Left atrial filling pressure is elevated. Right Ventricle: Right ventricle is poorly visualized. A pacemaker wire is seen in the right atrium and right ventricle. Doppler studies suggest normal right sided pressures. Left Atrium: The left atrium appears normal in size. Right Atrium: Right atrium is poorly visualized. Mitral Valve: Mitral valve appears normal. No mitral regurgitation. No mitral valve stenosis. Aortic Valve: Aortic valve appears normal. Aortic valve is tri-leaflet. No aortic valve regurgitation. No aortic valve stenosis. Tricuspid Valve: Normal tricuspid valve. Trivial tricuspid regurgitation. No tricuspid valve stenosis. Pulmonic Valve: Pulmonary valve appears normal. No pulmonary regurgitation. No pulmonic valve stenosis. Aorta: The aortic root exhibits normal size. Great Vessels: IVC: The IVC is not visualized. Pericardium: Anterior free space is seen; effusion versus fat pad. Procedure Staff Reading Group: [facility] Restoration Ecologist: Varsha Hyde RDCS Ordering Physician: JUAN C ONTIVEROS Procedure Note Juan C Ontiveros MD - 10/02/2024 1 1 [facility] Heart [facility] [address] [facility] [place] [address] [phone] (fax) Echocardiogram-[facility] Name: LISA ORGAN Study Date: 10/01/2024 03:03 PM B/P: 127 mmHg/111 mmHg HR: Date of : 1975 Location: [facility] Height: 62 in. Age: 49 year(s) Patient Room: 5160 Weight: 297 lb. Gender: Female Patient Status: InPt BSA: 2.26 m2 Indication: Chest Pain Examination: Limited Echo/Limited Doppler, Color flow imaging, Lumason Contrast Image Quality: Poor sound transmission due to body habitus Patient Consent: Procedure explained to patient Exam Details Technical Limitations: Echocardiographic views were limited by poor acoustic window availability Conclusions Left Ventricle: The left ventricle appears normal in size. Global left ventricular systolic function is difficult to assess but appears preserved. Left ventricular wall thickness is normal. No regional wall motion abnormality. Grade 2, moderate diastolic dysfunction (pseudonormalized LV filling pattern). Right Ventricle: A pacemaker wire is seen in the right atrium and right ventricle. Doppler studies suggest normal right sided pressures. Left Atrium: The left atrium appears normal in size. Overall Conclusions: Due to suboptimal imaging Lumason contrast was administered for opacification and better delineation of endocardial borders. All 10 mL of Lumason used; however could not be appreciated Very limited windows due to patient body habitus No significant valvular abnormalities Measurements Left Ventricle Label Value Normal Value LVOT VTI 12.8 cm (18cm - 22cm) LVOT PGmax 2 mmHg LVOT PGmean 1 mmHg Mitral Valve Label Value Normal Value MV E Vmax 1.14 m/s MV A Vmax 0.92 m/s MV E/A 1.24 MV E/E' lateral 25.6 MV E' lateral 0.04 m/s Tricuspid Valve Label Value Normal Value RA Pressure 3 mmHg RVSP 12 mmHg TR Vmax 1.48 m/s Valvular Assessment LVOT 0.7 - 1.1 m/sec Aortic Valve 1.0 - 1.7 m/sec Mitral Valve 0.6 - 1.3 m/sec Tricuspid Valve 0.3 - 0.7 m/sec Pulmonic Valve 0.6 - 0.9 m/sec Regurgitation No No Trivial No Stenosis No No No No Max Velocity 0.69 m/sec 1.14 m/sec 0.87 m/s Max Gradient 3.00 mmHg Findings Left Ventricle: The left ventricle appears normal in size. Global left ventricular systolic function is difficult to assess but appears preserved. Left ventricular wall thickness is normal. No regional wall motion abnormality. Grade 2, moderate diastolic dysfunction (pseudonormalized LV filling pattern). Left atrial filling pressure is elevated. Right Ventricle: Right ventricle is poorly visualized. A pacemaker wire is seen in the right atrium and right ventricle. Doppler studies suggest normal right sided pressures. Left Atrium: The left atrium appears normal in size. Right Atrium: Right atrium is poorly visualized. Mitral Valve: Mitral valve appears normal. No mitral regurgitation. No mitral valve stenosis. Aortic Valve: Aortic valve appears normal. Aortic valve is tri-leaflet. No aortic valve regurgitation. No aortic valve stenosis. Tricuspid Valve: Normal tricuspid valve. Trivial tricuspid regurgitation. No tricuspid valve stenosis. Pulmonic Valve: Pulmonary valve appears normal. No pulmonary regurgitation. No pulmonic valve stenosis. Aorta: The aortic root exhibits normal size. Great Vessels: IVC: The IVC is not visualized. Pericardium: Anterior free space is seen; effusion versus fat pad. Procedure Staff Reading Group: [facility] Restoration Ecologist: Varsha Hyde RDCS Ordering Physician: JUAN C ONTIVEROS Juan C Ontiveros MD CV ECHO PROCEDURES Final Result * (ABNORMAL) Lactic acid with 4 hour reflex (10/01/2024 2:17 PM EDT) Only the most recent of2 resultswithin the time period is included. Lactate 3.1(HH) 0.5 - 2.2 mmol/L 10/01/2024 2:54 PM EDT [facility] ([facility]) Comment:Previous result veri fied on 10/01/2024 1150 on specimen/case [id number] called with component Lactate blood venous for procedure Lactic acid, venous, whole blood with reflex with value 3.4 mmol/L. Blood Venous blood specimen / Unknown Existing Catheter / Unknown 10/01/2024 2:17 PM EDT 10/01/2024 2:21 PM EDT Andrzej Henry MD LAB BLOOD ORDERABLES Final Resul t [facility] ([facility]) [address] [place] [address] * XR chest 1 view (10/01/2024 1:28 PM EDT) Anatomical Region Laterality Modality Chest Computed Radiogr aphy 10/01/2024 1:49 PM EDT Impressions 10/01/2024 1:51 PM EDT No evidence of active pulmonary disease demonstrated. Electronically signed: Chester Cr. Narrative 10/01/2024 1:51 PM EDT History: Shortness of breath Exam/Technique: Portable upright AP chest Comparison: 02/17/2017 Findings: Interval revision of transvenous pacemaker with lead now suggesting a defibrillator is present. Revision of right sided central venous port with tip of current catheter in the inferior aspect of the SVC No interval change is demonstrated with no new acute pulmonary or pleural abnormalities. Cardiac and mediastinal contours display no gross abnormalities with magnification on this AP view. Procedure Note Chester Cr MD - 10/01/2024 History: Shortness of breath Exam/Technique: Portable upright AP chest Comparison: 02/17/2017 Findings: Interval revision of transvenous pacemaker with lead nowsuggesting a defibrillator is present. Revision of right sided central venous port withtip of current catheter in the inferior aspect of the SVC No interval change is demonstrated with no new acute pulmonary orpleural abnormalities. Cardiac and mediastinal contours display no gross abnormalities with magnification on this AP view. IMPRESSION: No evidence of active pulmonary disease demonstrated. Electronically signed: Chester Cr. Juan C Ontiveros MD IMG XR PROCEDURES Final Result * (ABNORMAL) High Sensitivity Troponin I (10/01/2024 11:02 AM EDT) High Sensitivity Troponin I 72(HH) <15 ng/L 10/01/2024 11:51 AM EDT [facility] ([facility]) Blood Venous blood specimen / Unknown Existing Catheter / Unknown 10/01/2024 11:02 AM EDT 10/01/2024 11:14 AM EDT Andrzej Henry MD LAB BLOOD ORDERABLES Final Resul t [facility]) [address] [place] [address] * TSH3 Reflex to FT4 (10/01/2024 11:02 AM EDT) TSH 3.71 0.34 - 5.60 mIU/L 10/01/2024 11:54 AM EDT [facility]) Blood Venous blood specimen / Unknown Existing Catheter / Unknown 10/01/2024 11:02 AM EDT 10/01/2024 11:14 AM EDT Andrzej Henry MD LAB BLOOD ORDERABLES Final Resul t [facility]) [address] [place] [address] * B-type natriuretic peptide (10/01/2024 11:02 AM EDT) BNP 19 0 - 100 pg/mL 10/01/2024 11:42 AM EDT [facility] ([facility]) Blood Venous blood specimen / Unknown Existing Catheter / Unknown 10/01/2024 11:02 AM EDT 10/01/2024 11:14 AM EDT Andrzej Henry MD LAB BLOOD ORDERABLES Final Resul t Performing Organization Address City/[facility]/ZIP Co de Phone Number [facility]) [address] [place] [address] * (ABNORMAL) Hemoglobin A1c (10/01/2024 11:02 AM EDT) Pathologist [facility] Hemoglobin A1C 10.7(H) 4.0 - 6.0 % 10/02/2024 9:31 AM EDT [facility] ([facility]) Estimated Average Glucose 260 mg/dL 10/02/2024 9:31 AM EDT [facility] ([facility]) Blood Venous blood specimen / Unknown Existing Catheter / Unknown 10/01/2024 11:02 AM EDT 10/01/2024 11:14 AM EDT Juan C Ontiveros MD LAB BLOOD ORDERABLES Final Resul t Performing Organization Address [facility] Co de Phone Number [facility]) [address] [place] [phone] * (ABNORMAL) Lipid panel (10/01/2024 11:02 AM EDT) Triglycerides 207(H) <150 mg/dL 10/01/2024 11:39 AM EDT [facility]) Comment: TRIGLYCERIDE REFERENCE RANGE: 20 YEARS AND OLDER CARDIOVASCULAR RISK LESS THAN 150 mg/dL LOW RISK 150 TO 199 mg/dL BORDERLINE RISK 200 mg/dL AND GREATER HIGH RISK Cholesterol 219(H) 120 - 200 mg/dL 10/01/2024 11:39 AM EDT [facility]) LDL Calculated 129 0 - 160 mg/dL 10/01/2024 11:39 AM EDT [facility] ([facility]) HDL 49 23 - 92 mg/dL 10/01/2024 11:39 AM EDT [facility] ([facility]) Non HDL Cholesterol 170 10/01/2024 11:39 AM EDT [facility] ([facility]) Total VLDL-C 41(H) 0 - 40 mg/dL 10/01/2024 11:39 AM EDT [facility] ([facility]) Cholesterol/HDL Ratio 4.5 mg/dL 10/01/2024 11:39 AM EDT [facility] ([facility]) Blood Venous blood specimen / Unknown Existing Catheter / Unknown 10/01/2024 11:02 AM EDT 10/01/2024 11:14 AM EDT Andrzej [place] MD LAB BLOOD ORDERABLES Final Resul t [facility]) [address] [place] [address] * (ABNORMAL) Comprehensive metabolic panel (10/01/2024 11:02 AM EDT) Sodium 131(L) 136 - 145 mmol/L 10/01/2024 11:51 AM EDT [facility] ([facility]) Potassium 4.1 3.5 - 5.1 mmol/L 10/01/2024 11:51 AM EDT [facility] ([facility]) Chloride 99 98 - 107 mmol/L 10/01/2024 11:51 AM EDT [facility] ([facility]) CO2 22 21 - 31 mmol/L 10/01/2024 11:51 AM EDT [facility] ([facility]) Anion Gap 14 7 - 20 mmol/L 10/01/2024 11:51 AM EDT [facility] ([facility]) BUN 26(H) 7 - 25 mg/dL 10/01/2024 11:51 AM EDT [facility] ([facility]) Creatinine 1.99(H) 0.60 - 1.20 mg/dL 10/01/2024 11:51 AM EDT [facility] ([facility]) BUN/Creatinine Ratio 13.1 09/22 11:51 AM EDT [facility] ([facility]) Glucose 531(HH) 70 - 100 mg/dL 10/01/2024 11:51 AM T [facility] ([facility]) Calcium 7.6(L) 8.6 - 10.3 mg/dL 10/01/2024 11:51 AM T [facility] ([facility]) AST 9(L) 13 - 39 U/L 10/01/2024 11:51 AM T [facility] ([facility]) ALT (SGPT) 11 7 - 52 U/L 10/01/2024 11:51 AM T [facility] ([facility]) Alkaline Phosphatase 104 34 - 104 U/L 10/01/2024 11:51 AM T [facility] ([facility]) Total Protein 6.1 6.0 - 8.3 g/dL 10/01/2024 11:51 AM [facility] ([facility]) Albumin 3.4(L) 3.5 - 5.7 g/dL 10/01/2024 11:51 AM [facility] ([facility]) Total Bilirubin 0.4 0.3 - 1.0 mg/dL 10/01/2024 11:51 AM [facility] ([facility]) eGFR 30.6(L) >60.0 mL/min/1. 73m*2 10/01/2024 11:51 AM [facility] ([facility]) Comment:The [facility] s estimated glomerular filtration rate (eGFR) will no longer include consideration of race in its calculation. The National [employer] s eGFR Task Force developed new recommendations for the estimation of the glomerular filtration rate in the [place] They recommend immediate implementation of the new equation refit without the race variable in all laboratories because the calculation does not include race. In addition to not including race in the calculation and reporting, it included diversity in its development, and has acceptable performance characteristics and potential consequences that do not disproportionately affect any one group of individuals. Blood Venous blood specimen / Unknown Existing Catheter / Unknown 10/01/2024 11:02 AM EDT 10/01/2024 11:14 AM EDT us Andrzej [place] MD LAB BLOOD ORDERABLES Final Resul t [facility] ([facility]) [address] [place] [address] * ECG 12 lead (10/01/2024 10:26 AM EDT) Ventricular Rate 94 BPM GE MUSE Atrial Rate 94 BPM GE MUSE LA Interval 174 ms GE MUSE QRS DURATION 88 ms GE MUSE QT Interval 384 ms GE MUSE QTC CALCULATION(BAZE TT) 480 ms GE MUSE P [place] 54 degrees GE MUSE R-[place] 12 degrees GE MUSE T Wave [place] 15 degrees GE MUSE 10/01/2024 10:1 2 AM EDT 10/02/2024 12:14 AM EDT Impressions GE MUSE - 10/02/2024 12:14 AM EDT Normal sinus rhythm Nonspecific ST abnormality Abnormal ECG Confirmed by Weston España ([id number]) on 10/02/2024 12:14:31 AM Narrative Procedure Note Krystal Chappell MD - 10/02/2024 IMPRESSION: Normal sinus rhythm Nonspecific ST abnormality Abnormal ECG Confirmed by Weston España ([id number]) on 10/02/2024 12:14:31 AM Andrzej [place] MD ECG ORDERABLES Final Result GE MUSE from Last 3 Months Insurance [facility] PL[facility] MEDICAID Advance Directives * Full Code (Latest Code Status on File) Date Activated Date Inactivated Comments 10/01/2024 9:44 AM 10/05/2024 7:01 PM Care Teams Radiologist Physician Relationship Specialty Start Date End Date Tona Nielsen PA [address] [place] [phone] PCP - General 10/05/24 Mk Conti MD [address] [place] [phone] Orthopaedic Surgery 10/05/24
[2024-12-02] MEDS: 0.9 % SODIUM CHLORIDE 1,000 ML 1000 ML IV ×2 (15:49→19:03)
[2024-12-02 16:02] LABS: Hematocrit 34.8 % (36.0-48.0); Hemoglobin 12.3 g/dL (12.0-16.0); Immature Granulocytes Abs Auto 0.03 10^3/uL (0.00-0.03); Immature Granulocytes Pct Auto 0.5 % (0.0-0.5); Lymphocytes Absolute Auto 1.4 10^3/uL (1.2-3.8); Mean Corpuscular HGB Conc 35.3 g/dL (29.9-35.2); Mean Corpuscular Hemoglobin 31.1 pg (26.7-34.0); Mean Corpuscular Volume 87.9 fL (81.0-99.0); Platelet Count 241 10^3/uL (150-450); Red Blood Count 3.96 10^6/uL (4.20-5.40); White Blood Count 5.9 10^3/uL (4.0-11.0)
[2024-12-02 16:27] LABS: Lactate/Lactic Acid 1.7 mmol/L (0.4-2.0)
[2024-12-02 16:33] LABS: Alanine Aminotransferase 18 U/L (14-59); Albumin Globulin Ratio 0.8; Albumin Level 2.9 g/dL (3.4-5.0); Alkaline Phosphatase 121 U/L (46-116); Anion Gap 15.8; Aspartate Amino Transferase 10 U/L (15-37); Blood Urea Nitrogen 21.0 mg/dL (7.0-18.0); Calcium 8.7 mg/dL (8.5-10.1); Carbon Dioxide 23.5 mmol/L (21.0-32.0); Chloride 100 mmol/L (98-107); Estimated GFR (African America 49 (>=60 mL/min/1.73m^2); Estimated GFR (Non-African Ame 40 (>=60 mL/min/1.73m^2); Globulin 3.5 g/dL; Potassium 4.3 mmol/L (3.5-5.1); Sodium 135 mmol/L (136-145); Total Protein 6.4 g/dL (6.4-8.2)
[2024-12-02 16:35] LABS: Magnesium 1.7 mg/dL (1.8-2.4)
[2024-12-02 16:36] LABS: Glucose 560 mg/dL (74-106)
[2024-12-02 16:37] LABS: pH VBG 7.364 (7.330-7.430)
[2024-12-02 16:38] LABS: PCO2 VBG 37.5 mmHg (40.0-52.0)
[2024-12-02 16:47] LABS: INR 0.96; Prothrombin Time 10.2 sec (9.0-11.6)
[2024-12-02] MEDS: INSULIN REGULAR, HUMAN (100 UNIT/ML) 10 ML MDV 10 UNIT IV (16:52)
--- NOTE | 2024-12-02 20:32 | ED.AMS1 ---
HPI - Altered Mental Status General Chief Complaint: Altered Mental Status Stated Complaint: SEIZURE Time Seen by Provider: 12/02/24 15:25 Source: other Source comment: EMS Mode of arrival: ambulance History of Present Illness HPI narrative: The patient is a 49-year-old female seen by my colleague. The patient is going to be transferred to [facility] because she has some vision changes. The stroke network was contacted and the neurologist suggested that the patient should go over for an MRI. Transfer was initiated. It was discovered however, the patient has a [employer] pacemaker. We called the local customer counter representative and discovered that the patient does not have an MRI compatible MRI. However, we are going to proceed with transfer since they do have Neurology: At the receiving facility as well as ophthalmology neither of which we have at our facility. So she still is going to a place with a higher level of care. Related Data Home Medications ?Medication ?Instructions ?Recorded ?Confirmed albuterol sulfate 90 mcg/actuation 1 puff inhalation Q4H PRN 10/23/22 09/30/24 aerosol inhaler (Ventolin HFA) shortness of breath or wheezing aspirin 81 mg tablet,delayed 81 mg PO .daily 10/23/22 09/30/24 release chlorthalidone 25 mg tablet 25 mg PO .daily 10/23/22 09/30/24 levetiracetam 750 mg tablet 750 mg PO Q12H 10/23/22 09/30/24 lisinopril 40 mg tablet 40 mg PO .daily 10/23/22 09/30/24 quetiapine 400 mg tablet 800 mg PO .daily 10/23/22 09/30/24 levothyroxine 75 mcg tablet 75 mcg PO .ACB 06/25/24 09/30/24 loratadine 10 mg tablet 10 mg PO .QD 06/25/24 09/30/24 nortriptyline 25 mg capsule 25 mg PO .QHS 06/25/24 09/30/24 blood-glucose sensor (Dexcom G6 09/30/24 09/30/24 Sensor device) brexpiprazole 1 mg tablet (Rexulti) mg 09/30/24 citalopram 40 mg tablet mg 09/30/24 hydroxyzine pamoate 50 mg capsule mg 09/30/24 insulin lispro 100 unit/mL 09/30/24 subcutaneous solution insulin pump cart,auto,BT,G6/7 09/30/24 09/30/24 (Omnipod 5 G6-G7 Pods (Gen 5) subcutaneous cartridge) levetiracetam 1,000 mg tablet mg PO 09/30/24 metoprolol succinate 50 mg mg PO 09/30/24 tablet,extended release 24 hr oxycodone-acetaminophen 5 mg-325 tab 09/30/24 mg tablet paliperidone 3 mg tablet,extended mg PO 09/30/24 release 24 hr paliperidone 6 mg tablet,extended mg PO 09/30/24 release 24 hr paliperidone 9 mg tablet,extended mg PO 09/30/24 release 24 hr pantoprazole 40 mg tablet,delayed mg PO 09/30/24 release polyethylene glycol 3350 17 gram g 09/30/24 oral powder packet pregabalin 75 mg capsule mg 09/30/24 tizanidine 4 mg tablet mg 09/30/24 urea 40 % topical cream applic topical 09/30/24 Previous Rx's ?Medication ?Instructions ?Recorded levetiracetam 750 mg tablet 750 mg PO Q12H 10 days #20 tabs 06/25/24 (Kevirginiara) Allergies Allergy/AdvReac Type Severity Reaction Status Date / Time latex Allergy Rash Verified 06/25/24 09:54 vancomycin Allergy Rash Verified 06/25/24 09:54 acetaminophen (From AdvReac Rash Verified 06/25/24 09:54 Darvocet-N) adhesive tape AdvReac Rash Verified 06/25/24 09:54 codeine AdvReac Rash Verified 06/25/24 09:54 dextrose 5 % in water (From AdvReac Rash Verified 06/25/24 09:54 Zyvox) fentanyl AdvReac Rash Verified 06/25/24 09:54 ibuprofen AdvReac Rash Verified 06/25/24 09:54 linezolid (From Zyvox) AdvReac Rash Verified 06/25/24 09:54 propoxyphene (From AdvReac Rash Verified 06/25/24 09:54 Darvocet-N) iv dye Allergy Rash Uncoded 06/25/24 09:54 PFSH PFSH Social History Smoking status: Current every day smoker Little interest or pleasure in doing things: not at all Feeling down, depressed, or hopeless: not at all Exam Constitutional Vital Signs, click to edit/add: Last Vital Signs Temp 98.2 F 12/02/24 15:28 Pulse 68 12/02/24 19:20 Resp 23 H 12/02/24 19:20 BP 123/89 12/02/24 19:01 Pulse Ox 99 12/02/24 19:10 O2 Del Method Room Air 12/02/24 15:28 Course Vital Signs Vital signs: Vital Signs Temperature 98.2 F 12/02/24 15:28 Pulse Rate 80 12/02/24 15:28 Respiratory Rate 18 12/02/24 15:28 Blood Pressure 135/81 12/02/24 15:28 Pulse Oximetry 95 12/02/24 15:28 Oxygen Delivery Method Room Air 12/02/24 15:28 Temperature 98.2 F 12/02/24 15:28 Pulse Rate 68 12/02/24 19:20 Respiratory Rate 23 H 12/02/24 19:20 Blood Pressure 123/89 12/02/24 19:01 Pulse Oximetry 99 12/02/24 19:10 Oxygen Delivery Method Room Air 12/02/24 15:28 MDM - Altered Mental Status Lab Data Labs: Lab Results 12/02/24 12/02/24 12/02/24 Range/Units 15:31 15:57 16:17 WBC 5.9 (4.0-11.0) 10^3/uL RBC 3.96 L (4.20-5.40) 10^6/uL Hgb 12.3 (12.0-16.0) g/dL Hct 34.8 L (36.0-48.0) % MCV 87.9 (81.0-99.0) fL MCH 31.1 (26.7-34.0) pg MCHC 35.3 H (29.9-35.2) g/dL RDW 12.2 (11.0-15.0) % Plt Count 241 (150-450) 10^3/uL MPV 9.6 (9.5-13.5) fL Neut % (Auto) 65.3 (43.0-75.0) % Lymph % (Auto) 24.5 (20.5-60.0) % [place] % (Auto) 6.1 (1.7-12.0) % Eos % (Auto) 2.7 (0.9-7.0) % Baso % (Auto) 0.9 (0.2-2.0) % Neut # (Auto) 3.8 (1.4-6.5) 10^3/uL Lymph # (Auto) 1.4 (1.2-3.8) 10^3/uL [place] # (Auto) 0.4 (0.3-0.8) 10^3/uL Eos # (Auto) 0.2 (0.0-0.7) 10^3/uL Baso # (Auto) 0.1 (0.0-0.1) 10^3/uL Abs Immat Gran (auto) 0.03 (0.00-0.03) 10^3/uL Imm/Tot Granulo (auto) 0.5 (0.0-0.5) % PT 10.2 (9.0-11.6) sec INR 0.96 VBG pH 7.364 (7.330-7.430) VBG pCO2 37.5 L (40.0-52.0) mmHg Sodium 135 L (136-145) mmol/L Potassium 4.3 (3.5-5.1) mmol/L Chloride 100 (98-107) mmol/L Carbon Dioxide 23.5 (21.0-32.0) mmol/L Anion Gap 15.8 BUN 21.0 H (7.0-18.0) mg/dL Creatinine 1.40 H (0.55-1.02) mg/dL Est GFR ( Amer) 49 L (>=60 mL/min/1.73m^2) Est GFR (Non-Af Amer) 40 L (>=60 mL/min/1.73m^2) BUN/Creatinine Ratio 15.0 Glucose 560 H* (74-106) mg/dL Lactate 1.7 (0.4-2.0) mmol/L Calcium 8.7 (8.5-10.1) mg/dL Magnesium 1.7 L (1.8-2.4) mg/dL Total Bilirubin 0.6 (0.2-1.0) mg/dL AST 10 L (15-37) U/L ALT 18 (14-59) U/L Alkaline Phosphatase 121 H (46-116) U/L Total Protein 6.4 (6.4-8.2) g/dL Albumin 2.9 L (3.4-5.0) g/dL Globulin 3.5 g/dL Albumin/Globulin Ratio 0.8 POC Glucose 534 H* (74-106) mg/dL 12/02/24 Range/Units 18:07 WBC (4.0-11.0) 10^3/uL RBC (4.20-5.40) 10^6/uL Hgb (12.0-16.0) g/dL Hct (36.0-48.0) % MCV (81.0-99.0) fL MCH (26.7-34.0) pg MCHC (29.9-35.2) g/dL RDW (11.0-15.0) % Plt Count (150-450) 10^3/uL MPV (9.5-13.5) fL Neut % (Auto) (43.0-75.0) % Lymph % (Auto) (20.5-60.0) % [place] % (Auto) (1.7-12.0) % Eos % (Auto) (0.9-7.0) % Baso % (Auto) (0.2-2.0) % Neut # (Auto) (1.4-6.5) 10^3/uL Lymph # (Auto) (1.2-3.8) 10^3/uL [place] # (Auto) (0.3-0.8) 10^3/uL Eos # (Auto) (0.0-0.7) 10^3/uL Baso # (Auto) (0.0-0.1) 10^3/uL Abs Immat Gran (auto) (0.00-0.03) 10^3/uL Imm/Tot Granulo (auto) (0.0-0.5) % PT (9.0-11.6) sec INR VBG pH (7.330-7.430) VBG pCO2 (40.0-52.0) mmHg Sodium (136-145) mmol/L Potassium (3.5-5.1) mmol/L Chloride (98-107) mmol/L Carbon Dioxide (21.0-32.0) mmol/L Anion Gap BUN (7.0-18.0) mg/dL Creatinine (0.55-1.02) mg/dL Est GFR ( Amer) (>=60 mL/min/1.73m^2) Est GFR (Non-Af Amer) (>=60 mL/min/1.73m^2) BUN/Creatinine Ratio Glucose (74-106) mg/dL Lactate (0.4-2.0) mmol/L Calcium (8.5-10.1) mg/dL Magnesium (1.8-2.4) mg/dL Total Bilirubin (0.2-1.0) mg/dL AST (15-37) U/L ALT (14-59) U/L Alkaline Phosphatase (46-116) U/L Total Protein (6.4-8.2) g/dL Albumin (3.4-5.0) g/dL Globulin g/dL Albumin/Globulin Ratio POC Glucose 355 H (74-106) mg/dL Discharge Plan Discharge Chief Complaint: Altered Mental Status Clinical Impression: AMS (altered mental status), Hyperglycemia, Loss of vision, Drug interaction Patient Disposition: [facility]
--- NOTE | 2024-12-02 20:42 | PC.NURSE ---
pt is waking now, asking for drink and food. Bp cuff placed back on pt and pulse ox replaced after pt removed these.
[2024-12-02] MEDS: ACETAMINOPHEN 500 MG TABLET 1000 MG PO (21:01)
== END 2024-12-02 22:36 | disposition short-term general hospital (02) ==
PROVIDERS: Emergency Provider Emergency Medicine
DX: R41.82 Altered mental status, unspecified (principal); R73.9 Hyperglycemia, unspecified; R51.9 Headache, unspecified; H54.7 Unspecified visual loss; R56.9 Unspecified convulsions; T50.995A Adverse effect of other drugs, medicaments and biological substances, initial encounter; Z95.0 Presence of cardiac pacemaker; F17.200 Nicotine dependence, unspecified, uncomplicated; Z79.4 Long term (current) use of insulin
CPT/HCPCS: 36415; 70450; 80053; 82800; 82948; 83605; 83735; 85025; 85610; 93005; 96360; 96361; 99285; J1817

== ENCOUNTER 2024-12-28 12:58 | Inpatient (IN) | payer OTHER, SELFPAY ==
--- OUTSIDE RECORDS SUMMARY | 2024-03-15 09:45 | XMS_ITS ---
Author Organization [facility] Address [address] [place] [address] Care Team Providers Care Bobbin Presser Name Role Phone Enrique Hebert Primary Care Provider Unavailtheo Smith MD, [facility] Unavailable Unavailable Mario Castillo Unavailable [phone] REASON FOR VISIT C/O SEVERE BURNING WHILE WB. WALKING ON [place] Encounters Encounter Location Date Provider Diagnosis [facility] [address] [place] [address] 03/15/2024 Mario Castillo Plan Of Treatment Next Appt Details Provider Name:Mario rockwell, 03/14/2025 01:30:00 PM, [address] [place] [address] [place], [address], Progress Notes * CAITY SANDERSOB:1975 ( 49 yo F)Acc No.[id number]:03/15/2024 Progress Notes Patient: ADDIE ZUÑIGA Provider: Joel Castillo DPM :1975 A ge:48 Y S ex:Female Date:03/15/2024 Phone: Address:[address] [place], [place] [address] Pcp:Enrique Hebert Subjective: * Chief Complaints: * C /O SEVERE BURNING WHILE WB. WALKING ON [place] * Electronic signature of Romeo Castillo DPM on 12/28/2024 at 01:19 PM EDT Sign off status: Pending * Provider: Joel Castillo DPM Date: 1 Generated for Printi ng/Faxing/eTransmitting on: 0 12/28/2024 01:19 PM EDT
--- OUTSIDE RECORDS SUMMARY | 2024-04-20 10:15 | XMS_ITS ---
Author Organization [facility] Address [address] [facility] [place] [address] Care Team Providers Care Printing Sales Representative Name Role Phone Enrique Hebert Primary Care Provider Unavailtheo Smith MD, [facility] Unavailable Unavailable Mario Castillo Unavailable [phone] REASON FOR VISIT STITCH REMOVAL Encounters Encounter Location Date Provider Diagnosis [facility] [address] [facility] [place] [address] 04/20/2024 Mario Castillo Plan Of Treatment Next Appt Details Provider Name:Mario rockwell, 03/14/2025 01:30:00 PM, [address] [place] [address] [address], [place], [address], Progress Notes * CAITY SANDERSOB:1975 ( 49 yo F)Acc No.[id number]:04/20/2024 Patient: ADDIE ZUÑIGA Provider: Joel Castillo DPM :1975 A ge:49 Y S ex:Female Date:04/20/2024 Phone: Address:[address] [place], [place] [address] Pcp:Enrique Hebert Subjective: * Chief Complaints: * S TITCH REMOVAL * Electronic signature of Romeo Castillo DPM on 12/28/2024 at 01:19 PM EDT Sign off status: Pending * Provider: Joel Castillo DPM Date: 06/20/2023 Generated for Printi ng/Faxing/eTransmitting on: 0 12/28/2024 01:19 PM EDT
--- OUTSIDE RECORDS SUMMARY | 2024-05-24 08:45 | XMS_ITS ---
Author Organization [facility] Address [address] [place] [address] [address] [address] Care Team Providers Care Network Architect Manager Name Role Phone Enrique Hebert Primary Care Provider Unavailtheo Smith MD, [place] Unavailable Unavailable Mario Castillo Unavailable [phone] Encounters Encounter Location Date Provider Diagnosis [facility] [address] [place] [address] 05/24/2024 Mario Castillo Plan Of Treatment Next Appt Details Provider Name:Mario rockwell, 03/14/2025 01:30:00 PM, [address] [place] [address] [address]WY, [place], [address], Progress Notes * BRIDGET SANDERSYDOB:1975 ( 49 yo F)Acc No.[id number]:05/24/2024 Patient: ADDIE ZUÑIGA Provider: Joel Castillo DPM :1975 A ge:49 Y S ex:Female Date:05/24/2024 Phone: Address:[address] [place], [place] [phone] Pcp:Enrique Hebert * Electronic signature of Romeo Castillo DPM on 12/28/2024 at 01:20 PM EDT Sign off status: Pending * Provider: Joel Castillo DPM Date: Generated for Printi ng/Faxing/eTransmitting on: 0 12/28/2024 01:20 PM EDT
--- OUTSIDE RECORDS SUMMARY | 2024-08-09 07:03 | XMS_ITS ---
Author Organization [facility] in [place] Address [address] [place] [address] Care Team Providers Care Photographic Specialist Name Role Phone Mario Baum DO Primary Care Provider Juanjo Snow [facility] [phone] Encounters Encounter Location Date Provider Diagnosis [facility] (PODIATRY) [address] [place] [address] [place] [address] 08/09/2024 Juanjo Amaro Plan Of Treatment No Information Progress Notes * Lisa JEAN BAPTISTE JDOB:1975 (49 yo F)Acc No.[id number]:08/09/2024 Patient: Lisa ZUÑIGA :1975 A ge:49 Y S ex:Female Address:[address] [place] [address] * true * Date: Generated for Rodney cota/Ling/eTransmitting on: 0 12/28/2024 01:19 PM EDT
[2024-12-28] VITALS (28 sets, daily range): BP systolic 82–147; BP diastolic 46–97; PULSE 90–119; TEMP 36.5–36.7; O2SAT 95–100; BMI 51.2
--- NOTE | 2024-12-28 13:11 | CT_ITS ---
The [address] [address] Patient Name: ADDIE SANDERS MRN: [id number] date: 1975 Sex: F Assigned Patient Location: ED.MAIN Current Patient Location: [place] Accession/Order Number: [id number] Exam Date: 12/28/2024 13:29 Report Date: 12/28/2024 13:34 At the request of: MELANIE MONTIEL MD Procedure: CT stroke head/brain wo con CT BRAIN WITHOUT CONTRAST: CLINICAL HISTORY: left sided weakness COMPARISON: CT brain 12/02/2024 TECHNIQUE: Contiguous axial unenhanced images were obtained through the brain. This CT exam was performed using one or more following dose reduction techniques: Automated exposure control, adjustment of the mA and/or kV according to patient size, or use of iterative reconstruction technique. FINDINGS: There is no evidence of midline shift, intra or extra-axial fluid collection, hemorrhage or CT evidence of stroke. Cortical atrophy with chronic microvascular ischemic changes. Posterior fossa appears unremarkable. Visualized intraorbital contents demonstrate no acute findings. Visualized paranasal sinuses are clear. The surrounding soft tissues are normal. CT/CT stroke head/brain wo con IMPRESSION: NO ACUTE INTRACRANIAL ABNORMALITY. Impression dictated by: Mk Gordon Jr., D.O. 12/28/2024 1:34 PM Dictation Location: [place] [address] Electronically authenticated by: [id number] Y Date: 12/28/2024 13:34
--- NOTE | 2024-12-28 13:12 | ECG_ITS ---
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 Measurements Intervals [place] Rate: 96 P: 54 ND: 172 QRS: 13 QRSD: 90 T: -30 QT: 358 QTc: 412 Interpretive Statements 1100 Sinus rhythm 3113 Cannot rule out anterior myocardial infarction, probably old 9150 abnormal ECG Compared to ECG 12/02/2024 15:35:01 Myocardial infarct finding now present Electronically Signed On 12-28-2024 22:00:29 EDT by RACHEL STUART M.D.
--- NOTE | 2024-12-28 13:12 | XR_ITS ---
The [place] [id number] Patient Name: ADDIE SANDERS MRN: [id number] date: 1975 Sex: F Assigned Patient Location: ED.MAIN Current Patient Location: ED.MAIN Accession/Order Number: [id number] Exam Date: 12/28/2024 13:35 Report Date: 12/28/2024 13:35 At the request of: MELANIE MONTIEL MD Procedure: XR chest 1V Single view chest: CLINICAL HISTORY: poss cva COMPARISON: Chest 10/01/2024 FINDINGS: Defibrillator device is in place. Right-sided port is identified tip in the SVC. Low lung volumes. Heart appears normal in size. No lung consolidation pneumothorax pleural effusion or free air. XR/XR chest 1V IMPRESSION: NO ACUTE PROCESS. Impression dictated by: Mk Gordon Jr., D.O. 12/28/2024 1:35 PM Dictation Location: [place] [address] Electronically authenticated by: [id number] Y Date: 12/28/2024 13:35
--- OUTSIDE RECORDS SUMMARY | 2024-12-28 13:19 | XMS_ITS | Patient Health Record ---
Author Organization [facility] Address [address] [place] [address] Care Team Providers Care Box Worker Name Role Phone Enrique Hebert Primary Care Provider Kash Smith [facility], [facility] Unavailable Mario Castillo Unavailable [phone] Reason For Referral No Information Encounters Encounter Location Date Provider Diagnosis [facility] [address] [place] [address] 03/15/2024 Mario Castillo Plan Of Treatment Next Appt Details Provider Name:Mario rockwell, 03/14/2025 01:30:00 PM, [address] [place] [address] [address], [address], [place], [address], Insurance Providers Payer Name Payer Address Payer Phone Subscriber Number Group Number Insured Name Patient Relationship to Insured Coverage Start Date Coverage End Date [employer] [place] [address] [facility] [place] [address] [id number] ORGAN, ADDIE Self - patient is the insured [employer] [place] [address] [place] [address] [id number] ORGAN, ADDIE Self - patient is the insured 4
--- OUTSIDE RECORDS SUMMARY | 2024-12-28 13:19 | XMS_ITS | Continuity of Care Document ---
Author Organization [facility]. Address [address] [place] [address] Phone [phone] Care Team Providers Care General Hardware Salesperson Name Role Phone Tona Nielsen PA-C Care Team Information Re ceiver [phone] Family History Date Family Member(s) Observation Comments [...] N ote .Renal Panel 04/29/2024 [facility] [phone] .Albumin 3.2 .Calcium 8.5 .Carbon Dioxide 23 .Chloride 104 .Phosphorus 4.0 .Potassium 4.5 .Sodium 137 .BUN 30 .GFR 37 .Creatinine-LC 1.73 .CBC W/O Differential 04/29/2024 [facility] [phone] .Hematocrit 29.3 .Hemoglobin Blood 9.6 .Platelet Count Blood 289 .Red Blood Count 3.10 RDW 13.4 .White Blood Count 6.78 MCH (Corpuscular Hemoglobin) 31.0 MCHC (Corpuscular Hemog Conc) 32.8 MPV 9.7 MCV (Corpuscular Volume) 94.5 .Renal Panel 04/04/2024 [facility] [phone] .Albumin 3.2 .Calcium 8.4 .Carbon Dioxide 28 .Chloride 105 .Phosphorus 3.8 .Potassium 4.0 .Sodium 141 .BUN 20 .GFR 50 .Creatinine-LC 1.34 .CBC W/O Differential 04/04/2024 [facility] [phone] .Hematocrit 26.7 .Hemoglobin Blood 8.9 .Platelet Count Blood 256 .Red Blood Count 2.86 RDW 13.1 .White Blood Count 7.11 MCH (Corpuscular Hemoglobin) 31.1 MCHC (Corpuscular Hemog Conc) 33.3 MPV 9.6 MCV (Corpuscular Volume) 93.4 .Renal Panel 03/29/2024 [facility] [phone] .Albumin 3.0 .Calcium 8.7 .Carbon Dioxide 20 .Chloride 108 .Phosphorus 4.1 .Potassium 4.8 .Sodium 137 .BUN 36 .GFR 28 .Creatinine-LC 2.19 .CBC W/O Differential 03/29/2024 [facility] [phone] .Hematocrit 28.0 .Hemoglobin Blood 8.8 .Platelet Count [...]
--- OUTSIDE RECORDS SUMMARY | 2024-12-28 13:19 | XMS_ITS | Clinical Summary ---
Author Organization [facility] Address [address] [place] [address] Care Team Providers Care Boilermaker Pipe Fitter Name Role Phone George Rob DO Primary [...] N ot on file 04/29/2020 Data from: [email or web address] Last address used for calculation Not on [...] Blood 2022 Lipid Screening 2022 Sigmoidoscopy 2022 Influenza Vaccine (#1) 2025 Insurance [employer] Care Teams Boilermaker Pipe Fitter Relationship Specialty Start Date End Date George Rob DO PCP - General Family Medicine 12/13/14 Soto Steiner [address] [place] [address] Physician Podiatry 07/17/17
--- OUTSIDE RECORDS SUMMARY | 2024-12-28 13:19 | XMS_ITS | Clinical Summary ---
Author Organization [facility] s tem Address [id number] [address] [place] [address] Care Team Providers Care Printing Machinist Name Role Phone Unavailable Primary Care Provider Unavailabl e Allergies Active Allergy Reactions Criticality Noted Date Comments Adhesive Tape-Silicones 08/17/2017 Codeine Low 08/17/2017 Propoxyphene N-Acetaminophen Vomiting Medium 018 Dye 08/17/2017 Ibuprofen 08/17/2017 Latex 08/17/2017 Ketorolac Hives Low 08/17/2017 Tramadol Hives Medium 08/17/2017 Vancomycin 08/17/2017 Medications levothyroxine (SYNTHROID, LEVOTHROID) 75 MCG tablet Take 75 mcg by mouth daily. Active pregabalin (LYRICA) 100 mg capsule Take 1 capsule (100 mg total) by mouth nightly. Active aspirin 81 mg Take 81 mg by mouth daily. Active lithium carbonate 300 mg tablet Take 300 mg by mouth every morning before breakfast. Active lithium 600 MG capsule Take 600 mg by mouth nightly. Active metFORMIN (GLUMETZA) 1000 MG (MOD) 24 hr tablet Take 1,000 mg by mouth 2 (two) times a day with meals. Active QUEtiapine (SEROquel) 200 mg tablet Take 4 tablets (800 mg total) by mouth nightly. Active tiZANidine (ZANAFLEX) 4 mg tablet Take 1 tablet (4 mg total) by mouth in the morning and 1 tablet (4 mg total) at noon and 1 tablet (4 mg total) before bedtime. Active levETIRAcetam (KEPPRA) 750 mg tablet Take 1 tablet (750 mg total) by mouth in the morning and 1 tablet (750 mg total) before bedtime. Active atorvastatin (LIPITOR) 80 mg tablet Take 1 tablet (80 mg total) by mouth in the morning. 30 tablet 2 03/10/20 Active oxyCODONE-acet aminophen (PERCOCET) 5-325 mg per tabletIndicati ons:pain Take 1 tablet by mouth every 8 (eight) hours as needed for pain Indications: pain. Max Daily Amount: 3 tablets Active insulin glargine (LANTUS) 100 unit/mL injection Inject 0.3 mL (30 Units total) under the skin in the morning and 0.3 mL (30 Units total) before bedtime. 10 mL 12/06/19 25 Active insulin lispro (HumaLOG) 100 unit/mL insulin pen Inject 2-10 Units under the skin 4 (four) times a day with meals and nightly. 15 mL 12/06/19 25 Active pen needle, diabetic (BD ULTRA-FINE JOHAN PEN NEEDLE) 32 gauge x 5/32 needle Use with insulin injections 100 each 12/06/19 25 Active insulin lispro (HumaLOG) 100 unit/mL injection Inject under the skin in the morning and at noon and in the evening. Inject before meals. 025 Discontinued(St op Taking at Discharge) insulin glargine (LANTUS) 100 unit/mL injection Inject under the skin nightly. 025 Discontinued divalproex (DEPAKOTE) 500 mg EC tablet Take 500 mg by mouth 2 (two) times a day. 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 Right leg weakness 03/05/2022 Encounters Date Type Department Care Team Description 12/06/2024 Telephone [facility] Pharmacy Medication Management [address] [facility] [place] [address] Lisa Chavira MA 12/03/2024 Travel 12/02/2024 11:49 PM EDT - 12/05/2024 5:05 PM EDT Hospital Encounter [facility] - GEN [address] Acute [address] [place] [address] Beth Vargas MD Jay, Bryanna M, MD HHS (hypothenar hammer syndrome) (Primary Dx); Hyperosmolar hyperglycemic state (HHS) (CMS-HCC) Discharge Disposition: Home Health 12/02/2024 3:30 PM EDT Ancillary Procedure [facility] External Film Storage [address] [place] [address] Pain from Last 3 Months Immunizations Immunization Administration Dates Next Due COVID-19, mRNA, LNP-S, PF, 100mcg/0.5mL Dose 12/02/2020 Influenza Tri-valent Im, Adult 02/11/2024 Influenza Whole 05/28/2015 Influenza, Im Trivalent Preservative 03/26/2014 Influenza, Injectable, Quadrivalent 02/22/2018 Influenza, Injectable, quadr ivalent (PF) 05/06/2023,04/09/2022,03/06/2021,06/05,05/25/2020 Pneumococcal Conjugate 20-valent 05/06/2023,11/0 09/2022 Pneumococcal Polysaccharide 03/06/2021 Tdap 02/21/2022 Family History Medical History Relation Name Comments Lung disease Mother Relation Name Status Comments Mother Social History Tobacco Use Types Packs/Day Years Used Date Smoking Tobacco: Every Day Cigarettes Smokeless Tobacco: Never Tobacco Cessation:Ready to Q uit: Not Asked; Counseling Given: Not Answered Comments:Vapes nicotine Alcohol Use Standard Drinks/Week Comments Not Currently 0 (1 standard drink = 0.6 oz pur e alcohol) rare [facility] Utilities Answer Date Recorded In the past 12 months has [employer], gas, oil, or water [employer]) threatened to shut off services in your home? No 12/03/2024 AUDIT-C Answer Date Recorded Q1: How often do you have a drink containing alc ohol? Monthly or less 12/03/2024 Q2: How many drinks containi ng alcohol do you have on a typical day when you are drinking? 1 or 2 12/03/2024 Q3: How often do you have si x or more drinks on one occasion? Never 12/03/2024 PHQ-2 Answer Date Recorded Total Score 2 12/03/2024 PRAPARE - Transportation Answer Date Re corded In the past 12 months, has l ack of transportation kept you from medical appointments or from getting medications? No 11/22 In the past 12 months, has l ack of transportation kept you from meetings, work, or from getting things needed for daily living? No 12/03/2024 Housing Instability Answer Date Recorde d Are you worried or concerned that in the next two months you may not have stable housing that you own, rent or stay in as a part of a household? No 12/03/2024 Childcare Answer Date Recorded Childcare Unknown 11/01/2018 Employment Answer Date Recorded Employment Unknown 11/01/2018 Hunger Screening Answer Date Recorded Within the past 12 months we worried whether our food would run out before we got money to buy more. Never True 12/04/2024 Within the past 12 months th e food we bought just didn't last and we didn't have money to get more. Never True 12/04/2024 Purpose - Life Answer Date Recorded Purpose and direction in life Unknown Comments No Sex and Gender Information Value Date Recorded Sex Assigned at Not on file Legal Sex Female 12:36 PM EDT Gender Identity Not on file Sexual Orientation Not on file Last Filed Vital Signs Vital Sign Reading Time Taken Comments Blood Pressure 149/86 12/05/2024 12:15 PM EDT Pulse 82 12/05/2024 12:15 PM EDT Temperature 37.1 C (98.7 F) 12/05/2024 12:15 PM EDT Respiratory Rate 14 12/05/2024 12:1 5 PM EDT Oxygen Saturation 94% 12/05/2024 8:12 AM EDT Inhaled Oxygen Concentration - - Weight 111.4 kg (245 lb 9.5 oz) 025 12:15 AM EDT Height 157.5 cm (5' 2.01 ) 12/03/2024 1 2:15 AM EDT Body Mass Index 44.91 12/03/2024 12:15 AM EDT Plan of Treatment Health Maintenance Due Date Last Done Comments Diabetic Ophthalmology Exam 1977 Statin Use: Diabetic 1977 Tobacco Counseling 1977 Adult BMI Follow Up Plan 1995 Diabetic Foot Exam 1995 COVID-19 Vaccine (3 - 2023-2 5 season) 2024 02/16/2021, 12/02/2020 Influenza Vaccine 01/23/2025 02/11/2024, , 04/09/2022, Additional history exists Adult BMI Screening 12/03/2025 12/03/2024 Depression Screening 12/03/2025 12/03/2024 Tobacco Screening 12/03/2025 12/03/2024 DTaP,Tdap and Td Vaccines (2 - Td or Tdap) 02/22/2032 02/21/2022 Goals Goal Patient Goal Type Associated Problems Recent Progress Patient-Stated? Author Return Home General Yes Mary Correa, RN Note: Evaluation of progress towards goal: safe discharge to [facility] with Home Care and daughter, friend support <enter goal here> General Yes Ezra Will RN Note: Evaluation of progress towards goal: home with [facility] Medical Devices Implanted Type Area Painter Apprentice Device Identifier Shelf Expiration Date Model / Serial / Lot Capsurefix Novus Mri Surescan [id number]/30/2017 Implanted:2016 (Quantity not on file) [employer] DEV[employer] [id number] / / (Not Safe)Evera Mri Xt Us_Version Implanted:2018 (Quantity not on file) [employer] [id number] / / Description:NOT SAFE DUE TO ABANDONED CAPPED LEAD PER VAN [employer]. Sprint Quattro Secure S [id number]-04/06/2019 Implanted:2018 (Quantity not on file) [employer] [id number] / / Procedures Procedure Name Priority Date/Time Associated Diagnosis Comments BEDSIDE GLUCOSE Routine 12/05/2024 12:14 PM EDT BEDSIDE GLUCOSE Routine 12/05/2024 8:30 AM EDT BASIC METABOLIC PANEL Routine 12/05/2024 5:43 AM EDT BEDSIDE GLUCOSE Routine 12/04/2024 9:27 PM EDT BEDSIDE GLUCOSE Routine 12/04/2024 3:56 PM EDT BEDSIDE GLUCOSE Routine 12/04/2024 11:54 AM EDT BEDSIDE GLUCOSE Routine 12/04/2024 9:20 AM EDT CBC WITH AUTO DIFFERENTIAL Routine 12/04/2024 4:59 AM EDT BASIC METABOLIC PANEL Routine 12/04/2024 4:59 AM EDT BEDSIDE GLUCOSE Routine 12/04/2024 12:01 AM EDT ELECTROLYTE PANEL Routine 12/03/2024 11: 56 PM EDT BEDSIDE GLUCOSE Routine 12/03/2024 9:56 PM EDT BEDSIDE GLUCOSE Routine 12/03/2024 8:12 PM EDT ELECTROLYTE PANEL Routine 12/03/2024 8:1 0 PM EDT BEDSIDE GLUCOSE Routine 12/03/2024 5:29 PM EDT BEDSIDE GLUCOSE Routine 12/03/2024 4:33 PM EDT BEDSIDE GLUCOSE Routine 12/03/2024 3:31 PM EDT BEDSIDE GLUCOSE Routine 12/03/2024 2:38 PM EDT ELECTROLYTE PANEL Routine 12/03/2024 2:3 3 PM EDT BEDSIDE GLUCOSE Routine 12/03/2024 1:24 PM EDT BEDSIDE GLUCOSE Routine 12/03/2024 12:30 PM EDT ELECTROLYTE PANEL Routine 12/03/2024 11: 57 AM EDT BEDSIDE GLUCOSE Routine 12/03/2024 11:30 AM EDT BEDSIDE GLUCOSE Routine 12/03/2024 10:31 AM EDT ELECTROLYTE PANEL Routine 12/03/2024 10: 00 AM EDT CBC WITH AUTO DIFFERENTIAL Routine 12/03/2024 10:00 AM EDT APTT Routine 12/03/2024 9:55 AM EDT BEDSIDE GLUCOSE Routine 12/03/2024 9:36 AM EDT BEDSIDE GLUCOSE Routine 12/03/2024 7:28 AM EDT BEDSIDE GLUCOSE Routine 12/03/2024 7:26 AM EDT TSH WITH REFLEX Add-On 12/03/2024 5:25 AM EDT HEMOGLOBIN A1C Add-On 12/03/2024 5:25 AM EDT CBC WITH AUTO DIFFERENTIAL Routine 12/03/2024 5:25 AM EDT COMPREHENSIVE METABOLIC PANEL Routine 12/03/2024 5:[address] BRAIN WO CONT STROKE ALERT STAT Reading 12/02/2024 3:30 PM EDT Pain from Last 3 Months Results * (ABNORMAL) Bedside Glucose *Place/Obtain serum glucose if >500 per glucometer. (12/05/2024 12:14PM EDT) Only the most recent of20 resultswithin the time period is included. Bedside Glucose (POC) 244(H) 65 - 99 mg/dL 12/05/2024 12:15 PM EDT [facility] arterial/capilla ry 12/05/2024 12:14 PM EDT 12/05/2024 12:15 PM EDT Elda Aguirre MD POINT OF CARE TEST ORDERABLES F inal Result [facility] [address] [place] [address], * (ABNORMAL) Basic Metabolic Panel (12/05/2024 5:43 AM EDT) Only the most recent of2 resultswithin the time period is included. SODIUM 139 134 - 146 mmol/L 12/05/2024 6:34 AM EDT [facility] POTASSIUM 4.6 3.5 - 5.0 mmol/L 12/05/2024 6:34 AM EDT [facility] CHLORIDE 111(H) 98 - 109 mmol/L 12/05/2024 6:34 AM EDT [facility] CARBON DIOXIDE 22 22 - 32 mmol/L 12/05/2024 6:34 AM EDT [facility] ANION GAP 6 5 - 15 mmol/L 12/05/2024 6:34 AM EDT [facility] BLOOD UREA NITROGEN 17 5 - 23 mg/dL 12/05/2024 6:34 AM EDT [facility] CREATININE 0.95 0.40 - 1.00 mg/dL 12/05/2024 6:34 AM EDT [facility] Comment:METHOD TRACEABLE TO IDMS STANDARD GLUCOSE 225(H) 65 - 99 mg/dL 12/05/2024 6:34 AM EDT [facility] CALCIUM 8.4(L) 8.5 - 10.5 mg/dL 12/05/2024 6:34 AM EDT [facility] EGFR Non-Race Dependent 74 >=60 ml/min/1.7 3sq.m 12/05/2024 6:34 AM EDT [facility] Comment: Reported eGFR is based on the CKD-EPI 2020 equation that does not use a race coefficient. Blood Venous blood / Unknown 12/05/2024 5:43 AM EDT 12/05/2024 6:01 AM EDT Hanna Mari MD LAB BLOOD ORDERABLES Final Resu lt [facility] [address] [place] [address], [place] [phone] * (ABNORMAL) CBC auto differential (12/04/2024 4:59 AM EDT) Only the most recent of3 resultswithin the time period is included. WBC 5.3 4 - 11 x10E9/L 12/04/2024 5:34 AM EDT [facility] RBC Count 3.67(L) 3.8 - 5.2 X10E12/L 12/04/2024 5:34 AM EDT [facility] Hemoglobin 11.2(L) 11.7 - 15.5 g/dL 12/04/2024 5:34 AM EDT [facility] Hematocrit 32.7(L) 35 - 47 % 12/04/2024 5:34 AM EDT [facility] MCV 89 80 - 100 fL 12/04/2024 5:34 AM EDT [facility] MCH 30.4 27 - 34 pg 12/04/2024 5:34 AM EDT [facility] MCHC 34.1 32 - 36 g/dL 12/04/2024 5:34 AM EDT [facility] RDW 13.5 11.5 - 15 % 12/04/2024 5:34 AM EDT [facility] Platelet Count 235 150 - 450 X10E9/L 12/04/2024 5:34 AM EDT [facility] MPV 7.5 7 - 12 fL 12/04/2024 5:34 AM EDT [facility] Neutrophils % 52.8 % 12/04/2024 5:34 AM EDT [facility] Lymphocytes % 38.3 % 12/04/2024 5:34 AM EDT [facility] Monocytes % 4.8 % 12/04/2024 5:34 AM EDT [facility] Eosinophils % 3.0 % 12/04/2024 5:34 AM EDT [facility] Basophils % 1.1 % 12/04/2024 5:34 AM EDT [facility] Neutrophils Absolute (A) 2.8 1.5 - 6.6 10*3/uL 12/04/2024 5:34 AM EDT [facility] Lymphocytes Absolute 2.0 1.0 - 3.5 10*3/uL 12/04/2024 5:34 AM EDT [facility] Monocytes Absolute 0.3 0.0 - 0.9 10*3/uL 12/04/2024 5:34 AM EDT [facility] Eosinophils Absolute 0.2 0.0 - 0.4 10*3/uL 12/04/2024 5:34 AM EDT [facility] Basophils Absolute 0.1 0.0 - 0.2 10*3/uL 12/04/2024 5:34 AM EDT [facility] Differential Type AUTOMATED DIFFERENTIAL 12/04/2024 5:34 AM EDT [facility] Blood Venous blood / Unknown 12/04/2024 4:59 AM EDT 12/04/2024 5:22 AM EDT Hanna Mari MD LAB BLOOD ORDERABLES Final Resu lt [facility] [address] [place] [address], * (ABNORMAL) Electrolyte panel (12/03/2024 11:56 PM EDT) Only the most recent of5 resultswithin the time period is included. SODIUM 136 134 - 146 mmol/L 12/04/2024 12:41 AM EDT [facility] POTASSIUM 4.4 3.5 - 5.0 mmol/L 12/04/2024 12:41 AM EDT [facility] CHLORIDE 110(H) 98 - 109 mmol/L 12/04/2024 12:41 AM EDT [facility] CARBON DIOXIDE 20(L) 22 - 32 mmol/L 12/04/2024 12:41 AM EDT [facility] ANION GAP 6 5 - 15 mmol/L 12/04/2024 12:41 AM EDT [facility] Blood Venous blood / Unknown 12/03/2024 11:56 PM EDT 12/04/2024 12:13 AM EDT Flaco Gentile MD LAB BLOOD ORDERABLES Final Resul t Performing Organization Address City/[facility]/ZIP Co de Phone Number [facility] [address] [place] [address], [place] [phone] * (ABNORMAL) APTT (12/03/2024 9:55 AM EDT) APTT 25(L) 26 - 37 sec 12/03/2024 10:52 AM EDT [facility] Blood Venous blood / Unknown Port / Unknown 12/03/2024 9:55 AM EDT 12/03/2024 10:14 AM EDT us Hanna Mari MD LAB BLOOD ORDERABLES Final Resu lt Performing Organization Address City/[facility] Co de Phone Number [facility] [address] [place] [address], [place] [phone] * TSH with Reflex (12/03/2024 5:25 AM EDT) TSH 3.02 0.49 - 4.67 uIU/mL 12/03/2024 10:33 AM EDT [facility] Blood Venous blood / Unknown Venipuncture / Unknown 12/03/2024 5:25 AM EDT 12/03/2024 5:26 AM EDT us Flaco Gentile MD LAB BLOOD ORDERABLES Final Resul t Performing Organization Address City/[facility]/ZIP Co de Phone Number [facility] [address] [place] [address], [place] [phone] * (ABNORMAL) Hemoglobin A1c (12/03/2024 5:25 AM EDT) HEMOGLOBIN A1C 13.6(H) 4.4 - 5.6 % 12/03/2024 10:16 AM EDT [facility] Comment: ADA Guidelines Result HgbA1c Normal : less than 5.7 % Prediabetes : 5.7 % to 6.4 % Diabetes : > 6.4 % Use with caution in patients with abnormal hemoglobin variants as the half-life of red blood cells and in vivo glycation rates are affected. EST. AVERAGE GLUCOSE 344 mg/dL 12/03/2024 10:16 AM EDT [facility] Blood Venous blood / Unknown Venipuncture / Unknown 12/03/2024 5:25 AM EDT 12/03/2024 5:26 AM EDT us Flaco Gentile MD LAB BLOOD ORDERABLES Final Resul t [facility] [address] [place] [address], * (ABNORMAL) Comprehensive metabolic panel (12/03/2024 5:25 AM EDT) SODIUM 133(L) 134 - 146 mmol/L 12/03/2024 6:23 AM EDT [facility] POTASSIUM 4.3 3.5 - 5.0 mmol/L 12/03/2024 6:23 AM EDT [facility] CHLORIDE 101 98 - 109 mmol/L 12/03/2024 6:23 AM EDT [facility] CARBON DIOXIDE 21(L) 22 - 32 mmol/L 12/03/2024 6:23 AM EDT [facility] ANION GAP 11 5 - 15 mmol/L 12/03/2024 6:23 AM EDT [facility] BLOOD UREA NITROGEN 21 5 - 23 mg/dL 12/03/2024 6:23 AM EDT [facility] CREATININE 1.40(H) 0.40 - 1.00 mg/dL 12/03/2024 6:23 AM EDT [facility] Comment:METHOD TRACEABLE TO IDFL STANDARD GLUCOSE 640(HH) 65 - 99 mg/dL 12/03/2024 6:23 AM EDT [facility] CALCIUM 8.1(L) 8.5 - 10.5 mg/dL 12/03/2024 6:23 AM EDT [facility] TOTAL PROTEIN 6.0 6.0 - 8.0 g/dL 12/03/2024 6:23 AM EDT [facility] ALBUMIN 3.4 3.2 - 5.3 g/dL 12/03/2024 6:23 AM EDT [facility] ALKALINE PHOSPHATASE 104 39 - 130 U/L 12/03/2024 6:23 AM EDT [facility] AST 11 <=41 U/L 12/03/2024 6:23 AM EDT [facility] ALT 10 <=31 U/L 12/03/2024 6:23 AM EDT [facility] BILIRUBIN,TOTAL 0.4 0.3 - 1.2 mg/dL 12/03/2024 6:23 AM EDT [facility] EGFR Non-Race Dependent 47(L) >=60 ml/min/1.7 3sq.m 12/03/2024 6:23 AM EDT [facility] Comment: Reported eGFR is based on the CKD-EPI 2020 equation that does not use a race coefficient. Blood Venous blood / Unknown Venipuncture / Unknown 12/03/2024 5:25 AM EDT 12/03/2024 5:26 AM EDT us Hanna Mari MD LAB BLOOD ORDERABLES Final Resu lt [facility] [address] [place] [address], [place] [phone] * CT brain without contrast stroke alert (12/02/2024 3:30 PM EDT) us Scanning Provider External IMG CT ORDERABLES Fin al Result from Last 3 Months Insurance [place] [employer] Advance Directives * Full Code (Latest Code Status on File) Date Activated Date Inactivated Comments 12/03/2024 7:40 AM 12/05/2024 7:18 PM * Full Code Date Activated Date Inactivated Comments 03/06/2022 2:06 AM 03/11/2022 9:21 PM
--- OUTSIDE RECORDS SUMMARY | 2024-12-28 13:20 | XMS_ITS | Patient Health Record ---
Author Organization [facility] [place] Address [address] [place] [address] Care Team Providers Care Editor Name Role Phone Mario Baum DO Primary Care Provider Juanjo Snow Unavailable [phone] Reason For Referral No Information Problems Problem Type SNOMED Code ICD Code Onset Dates Problem Status W/U Status Risk Notes Problem Peripheral venous insufficiency (69607247) Venous insufficiency (chronic) (peripheral) (I87.2) Active confirmed Problem Chronic ulcer of foot (011109283) Non-pressure chronic ulcer of other part of left foot with fat layer exposed (L97.522) Active confirmed Problem Diabetic peripheral neuropathy (083203795) Diabetic peripheral neuropathy (E11.42) Active confirmed Problem Hypertension (51020885) Hypertension (I10) Active confirmed Problem Anxiety (40731810) Anxiety (F41.9) Active confirmed Problem Type 2 diabetes mellitus (86064079) Type 2 diabetes mellitus (E11.9) Active confirmed Problem Current use of insulin (Z79.4) Active confirmed Encounters Encounter Location Date Provider Diagnosis [facility] ([facility]) [address] [place] [address] [place] [address] 08/09/2024 Juanjo Amaro Plan Of Treatment No Information Insurance Providers Payer Name Payer Address Payer Phone Subscriber Number Group Number Insured Name Patient Relationship to Insured Coverage Start Date Coverage End Date [employer] [place] [employer] [address] [place] [phone] [id number] Lisa Jean Baptiste Self - patient is the insured 3
--- OUTSIDE RECORDS SUMMARY | 2024-12-28 13:20 | XMS_ITS | Encounter Summary ---
Author Organization [employer] tem Address [id number] [address] [place] [address] Care Team Providers Care Tube Knitter Name Role Phone Radha Dias DO Primary Care Provider [phone] Reason for Referral * Diagnostic Imaging (Routine) - Closed Specialty Diagnoses / Procedures Referred By Contac t Referred To Contact Radiology Diagnoses Pain Procedures CT angiogram head [facility] [address] [place] [phone] Phone: tel: fax: Referral ID Status Reason Start Date Expiration Date Visits Re quested Visits Authorized [id number] Closed 03/05/2022 03/05/2023 1 1 * Diagnostic Imaging (Routine) - Closed Specialty Diagnoses / Procedures Referred By Contac t Referred To Contact Radiology Diagnoses Neck pain Procedures CT angiogram carotid [facility] [address] [place] [phone] Phone: tel: fax: Referral ID Status Reason Start Date Expiration Date Visits Re quested Visits Authorized [id number] Closed 03/05/2022 03/05/2023 1 1 * Diagnostic Imaging (Routine) - Closed Specialty Diagnoses / Procedures Referred By Contac t Referred To Contact Radiology Diagnoses Low back pain, non-specific Procedures CT lumbar spine without contrast [facility] [address] [place] [phone] Phone: tel: fax: Referral ID Status Reason Start Date Expiration Date Visits Re quested Visits Authorized [id number] Closed 03/05/2022 03/05/2023 1 1 * Diagnostic Imaging (Routine) - Closed Specialty Diagnoses / Procedures Referred By Richa t Referred To Contact Radiology Diagnoses Pain Procedures CT brain without contrast [facility] [address] [place] [address] Phone: tel: fax: Referral ID Status Reason Start Date Expiration Date Visits Re quested Visits Authorized [id number] Closed 03/05/2022 03/05/2023 1 1 Encounter Details Date Type Department Care Team (Late st Contact Info) Description 03/05/2022 Orders Only [facility] [address] [place] [address] Transcribe, Orders Support User Pain (Primary Dx); Low back pain, non-specific; Neck pain Social History Tobacco Use Types Packs/Day Years Used Date Smoking Tobacco: Former Smokeless Tobacco: Never Alcohol Use Standard Drinks/Week Comments No 0 (1 standard drink = 0.6 oz pur e alcohol) Childcare Answer Date Recorded Childcare Unknown 11/01/2018 Employment Answer Date Recorded Employment Unknown 11/01/2018 Purpose - Life Answer Date Recorded Purpose and direction in life Unknown Comments No Sex and Gender Information Value Date Recorded Sex Assigned at Not on file Legal Sex Female 12:36 PM EDT Gender Identity Not on file Sexual Orientation Not on file COVID-19 Exposure Response Date Recorded In the last month, have you been in contact with someone who was confirmed or suspected to have Coronavirus / COVID-19? No / Unsure 03/06/2022 2:53 PM EDT documented as of this encounter Functional Status documented as of this encounter Plan of Treatment Not on file documented as of this encounter Results * CT brain without contrast (03/05/2022 1:45 PM EDT) us Scanning Provider External IMG CT ORDERABLES Fin al Result * CT lumbar spine without contrast (03/04/2022 12:55 PM EDT) us Scanning Provider External IMG CT ORDERABLES Fin al Result * CT angiogram head (03/03/2022 10:50 PM EDT) us Scanning Provider External IMG CT ORDERABLES Fin al Result * CT angiogram carotid (03/03/2022 10:45 PM EDT) us Scanning Provider External IMG CT ORDERABLES Fin al Result * X-ray chest 1 view (03/03/2022 8:05 PM EDT) us Scanning Provider External IMG DIAGNOSTIC IMAGIN G ORDERABLES Final Result documented in this encounter Visit Diagnoses Diagnosis Pain- Primary Generalized pain Low back pain, non-specific Neck pain Cervicalgia documented in this encounter Additional Health Concerns Infection Onset Date Last Indicated Resolved Time Enteric Rule-Out Comment:cancelled 03/06/2022 03/06/2022 03/08/2022 4:18 PM E DT documented as of this encounter Care Teams Tube Knitter Relationship Specialty Start Date End Date Radha Dias DO PCP - General Family Medicine 03/10/22 12/02/24 documented as of this encounter
--- OUTSIDE RECORDS SUMMARY | 2024-12-28 13:20 | XMS_ITS | Clinical Summary ---
Author Organization [facility] Address [address] [place] [address] Care Team Providers Care Log Clerk Name Role Phone Unavailable Primary Care [...] 1 each 12/03/19 24 Active Dexcom G6 Steam Distribution Supervisor MiscIndications:T ype 2 diabetes mellitus with diabetic [...] polyneuropathy, with long-term current use of insulin ([facility]) Inject up to 150 units once [...] day . 60 tablet 09/23/19 25 Active oxyCODONE-acetami nophen (PERCOCET) 5-325 mg per tabletIndications :Chronic pain syndrome Take 1 (one) tablet by mouth 3 (three) times a day as needed for pain (Days supply per fill: 30) Start: 12/22/24. 90 tablet 12/23/19 25 2024 Active pregabalin (LYRICA) 75 MG capsuleIndication s:DDD (degenerative disc disease), lumbar,Lumbar radiculopathy Take 1 (one) capsule (75 mg total) by mouth 2 (two) times a day (Days supply per fill: 30) Start: 12/22/24. 60 capsule 12/23/19 25 2024 Active tiZANidine (Zanaflex) 4 MG tabletIndications :DDD (degenerative disc disease), lumbar Take 2 tabs p.o. nightly . 60 tablet 3 12/21/19 25 Active pregabalin (LYRICA) 75 MG capsuleIndication s:DDD (degenerative disc disease), lumbar,Lumbar radiculopathy Take 1 (one) capsule (75 mg total) by mouth 2 (two) times a day (Days supply per fill: 30) . 60 capsule 11/22/19 25 2024 Discontinu ed(Reorder (Suppress CancelRx Message to Pharmacy)) tiZANidine (Zanaflex) 4 MG tabletIndications :DDD (degenerative disc disease), lumbar Take 2 tabs p.o. nightly . 60 tablet 3 11/22/19 25 2024 Discontinu ed(Reorder (Suppress CancelRx Message to Pharmacy)) oxyCODONE-acetami nophen (PERCOCET) 5-325 mg per tabletIndications :Chronic pain syndrome Take 1 (one) tablet by mouth 3 (three) times a day as needed for pain (Days supply per fill: 30) . 90 tablet 11/22/19 25 2024 Discontinu ed(Reorder (Suppress CancelRx Message [...] maintenance therapy 05/13/2024 08/05/2024 Diabetic foot infection 04/26/2024 03/08/2024 Abdominal wound dehiscence 03/22/2024 0 08/05/2024 Weight [...] serial chem Strict I/O No need for LABORATORY TECHNOLOGIST yet. Will continue to watch for signs that LABORATORY TECHNOLOGIST is indicated. Will follow along with you [...] chin 12/01/2014 05/06/2023 Cellulitis of chin 11/30/2014 Assessment & Plan (12/08/2014 1:24 PM EDT): [...] Encounters Date Type Department Care Team Description 12/19/2024 Refill [facility] [place] [address] Morgan Velez, Chronic pain syndrome; DDD (degenerative disc disease), lumbar; Lumbar radiculopathy 11/21/2024 Refill [facility] [place] [address] Morgan Velez, DDD (degenerative disc disease), lumbar; Lumbar radiculopathy; Chronic pain syndrome 10/11/2024 Orders Only [facility] [place] [address] Morgan Velez DO 10/06/2024 Refill [facility] [place] [address] Morgan Velez, Chronic pain syndrome 09/29/2024 Documentation [facility] [place] [address] Jay Peralta MA Zynex from Last 3 Months Immunizations Immunization Administration Dates Next Due INFLUENZA IIV3 3YO OR > FLUZONE [id number] 05/06/2023 ,05/06/2023 INFLUENZA IIV4 6MO OR > FLUARIX/FLUZONE/AFLURIA [id number] 05/06/2023,06/05/2020 Influenza Whole 05/28/2015 Influenza, Injectable, Quadr [...] Unable or Declines to Respond No 04/22/2023 [facility] Utilities Answer Date Recorded In the past 12 months has e [employer], gas, oil, or water company threatened to [...] place to sleep or slept in a senior living (including now)? Yes 05/11/2023 Housing Stability Vital Sign Answer Chacorta e Recorded In the last 12 months, was t here a time when you were not able to pay the mortgage or rent on time? No 04/27/2024 In the past 12 months, how m any times have you moved where you were living? 1 04/27/2024 At any time in the past 12 m [facility], were you homeless or living in a senior living (including now)? No 04/27/2024 Comments No Sex [...] Care Team (Late st Contact Info) Description 01/05/2025 7:30 AM EDT Office Visit [facility] [address] [place] [address] Mihai Banerjee, CONTACT REPRESENTATIVE [address] [place] [address] Health Maintenance Due Date Last Done Comments CT Colonography 1977 Colonoscopy 1977 Colorectal Cancer Screening/Monitoring 1977 Fecal DNA 1977 Fecal occult blood test (FOBT,FIT) 1977 Flexible sigmoidoscopy 1977 Urine (micro)albumin/creatinine ratio - Diabetes 1987 Pap Smear 1998 HPV/Cotest 2007 Mammogram 2017 Diabetic Foot Exam 04/14/2024 04/14/2023 Wellness Visit 09/02/2024 09/03/2023 Diabetic Eye Exam 11/08/2024 11/09/2023 A1C 01/01/2025 10/01/2024, 07/23, 03/22/2024, Additional history [...] Associated Diagnosis Comments BASIC METABOLIC PANEL STAT 09/22/2024 3:11 PM EDT HIV 1/2 SCREEN (4TH GENERATION) [...] Relevant to Health Maintenance Results * (ABNORMAL) BMP (09/22/2024 3:11 PM EDT) Sodium 130(L) 135 - 145 mmol/L 09/22/2024 3:44 PM EDT [facility] Potassium 4.0 3.5 - 5.1 mmol/L 09/22/2024 3:44 PM EDT [facility] Chloride 97(L) 98 - 108 mmol/L 09/22/2024 3:44 PM EDT [facility] Bicarbonate 17(L) 21 - 32 mmol/L 09/22/2024 3:44 PM EDT [facility] Anion Gap 20 10 - 20 mmol/L 09/22/2024 3:44 PM EDT [facility] Glucose 468(HH) 65 - 99 mg/dL 09/22/2024 3:44 PM EDT [facility] BUN 30(H) 8 - 25 mg/dL 09/22/2024 3:44 PM EDT [facility] Creatinine 1.71(H) 0.40 - 1.10 mg/dL 09/22/2024 3:44 PM EDT [facility] eGFR 37(L) >=60 mL/min/1.7 3 m2 09/22/2024 3:44 PM EDT [facility] Comment:Estimated GFR was ca lculated using the 2020 CKD-EPI creatinine equation. BUN/Creatinine Ratio 17.5 10.0 - 20.0 09/22/2024 3:44 PM EDT [facility] Calcium 8.9 8.4 - 10.2 mg/dL 09/22/2024 3:44 PM EDT [facility] Blood BLOOD SPECIMEN / Unknown Venipuncture / Unknown 09/22/2024 3:11 PM EDT 09/22/2024 3:19 PM EDT [facility] - 09/22/2024 3:44 PM EDT [facility] has implemented the eGFR calculation approach that does not have a coefficient for race that conforms to the NKF-ASN Task Force Recommendations. us Mario Pitts MD LAB BLOOD ORDERABLES Ioana l Result [facility] [address] [place] [address] * Hepatitis C Ab with Reflex to HCV Virus Quantitation (08/02/2024 3:40 PM EDT) Hepatitis C Ab ([facility]) NON-REACT CORI NON-REACT CORI [facility] [place] Comment: HCV antibody was non-reactive. There is no laboratory evidence of HCV infection. In most cases, no further action is required. However, if recent HCV exposure is suspected, a test for HCV RNA (test code 09695) is suggested. For additional information please refer to http://[employer]jack[employer]/faq/BKI47h3 (This link is being provided for informational/ educational purposes only.) Blood BLOOD SPECIMEN / Unknown 08/02/2024 3:40 PM EDT 08/02/2024 3:41 PM EDT Tona Nielsen PA-C LAB BLOOD ORDERABLES Ioana l Result [facility] [address] [address], * HIV Antibody (HIV1/HIV2) (08/02/2024 3:40 PM EDT) Hiv Ag/Ab 4Th Gen ([facility]) NON-REACT CORI NON-REACT CORI [facility] Comment: HIV-1 antigen and HIV-1/HIV-2 antibodies [...] purpose. For additional information please refer to http://[employer]jack.[employer]/faq/SCY608 (This link is being provided for informational/ educational purposes only.) The performance of this assay has not been clinically validated in patients less than 2 years old. Blood BLOOD SPECIMEN / Unknown 08/02/2024 3:40 PM EDT 08/02/2024 3:41 PM EDT Tona Nielsen PA-C LAB BLOOD ORDERABLES Ioana l Result Performing Organization Address [facility]/ZIP Co de Phone Number [facility] [address] [address], [place] * (ABNORMAL) Hemoglobin A1c (08/02/2024 3:40 PM EDT) Hemoglobin A1C ([facility]) 10.6(H) <5.7 % of total Hgb [facility] Comment: For someone without known diabetes, a [...] ORDERABLES Ioana l Result Performing Organization Address [facility] Co de Phone Number [facility] [address] [address], [place] * HM DIABETES FOOT EXAM (04/14/2023) 04/14/2023 Historical Provider HEALTH MAINTENANCE Final Result from Last 3 Months or Most Recently Relevant to Health Maintenance Insurance [place] [employer] Advance Directives For more information, please contact: [phone] Documents on File Type Date Recorded Patient Energy Trading Analyst Expl anation Advance Directives and Livin g [...]
--- OUTSIDE RECORDS SUMMARY | 2024-12-28 13:20 | XMS_ITS | Clinical Summary ---
Author Organization [facility] Address [address] [place] [address] [place] [address] Care Team Providers Care Foiling Machine Operator Name Role Phone Cherelle Fierro MD Unavailable [phone] Goe Leach MD Primary Care Provider [phone] George Rob DO Unavailable Unavailable Allergies Active Allergy Reactions Criticality Noted Date Comments *Adhesive Tape 07/15/2017 Codeine And Related Aggressive Behavior Medium 008 Propoxyphene N-Apap Nausea and Vomiting Medium 008 Dye Alf Red 3 (Erythrosine) 01/21/2017 IV DYE shuts [...] by mouth daily. 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/CVA; recommended [...] Description 03/03/2025 8:00 AM EDT Office Visit [facility] [address] [place] [address] Geo Leach MD [address] [place] [phone] Health Maintenance Due Date Last Done Comments [...] 03/29/2023, 03/06/2021 Medical Devices Implanted Type Area Eap Consultant Device Identifier Shelf Expiration Date Model / Serial / Lot Lead Pace Standard Mdt 5076 45cm - S [id number] Implanted:Qty : 1 on 03/30/2017 by Fatmata Jose MD at [facility] Lead N/A: Heart [employer] PACER 01/20/2019 [id number] / [id number] / Pacer Dual Mri Advisa Chamber - [id number] Implanted:Qty : 1 on 03/30/2017 by Fatmata Jose MD at [facility] Pacemaker Left: Chest [employer] PACER 09/05/2018 [id number] / [id number] / Explanted Type Area Eap Consultant Device Identifier Shelf Expiration Date Model / Serial / Lot Lead St Justo 2087tc/46 - [id number] Implanted:Qty: 1 on 01/29/2012 by Ashish Long MD, PhD at [facility] Explanted:Qty: 1 on 03/30/2017 by Fatmata Jose MD at [facility] Lead ST JUSTO [employer] 11/21/20142087TC/46 / [id number] / Pacer Biotronik [id number] - [id number] Implanted:Qty: 1 on 01/29/2012 by Ashish Long MD, PhD at [facility] Explanted:Qty: 1 on 03/30/2017 by Geo Leach MD at [facility] Pacemaker N/A: Chest HIST BIOTRONIK 04/24/2013 [id number] / [id number] / Description:Device is set at DDD-CLS Implantable Heating And Refrigeration Inspector Me - [id number] Explanted:Qty: 1 on 01/29/2012 by Ashish Long MD, PhD at [facility] MEDTRONIC PACER [id number] / [id number] / Procedures Procedure Name Priority Date/Time [...] 04/01/2017 4:01 AM EST us Hiwot A Elmo OPTICIANRY TEACHER-ORE ROASTER CHEMISTRY ORDERABLES Final Result LAB, [facility] [address] [place] [address] * (ABNORMAL) HEMOGLOBIN A1C (03/13/2017 2:47 PM EDT) HEMOGLOBIN A1C 10.2(H) 4.7 - 5.6 % LAB, [facility] Estimated Average Glucose 246 mg/dL LAB, [facility] 03/13/2017 2:47 PM EDT 03/13/2017 3:42 PM EDT Dannielle Palma OPTICIANRY TEACHER-ORE ROASTER HEMATOLOGY ORDERABLES Fi nal Result Performing Organization Address [facility] Co de Phone Number [facility] [address] [place] [address] * (ABNORMAL) LIPID PANEL (06/30/2008 10:11 AM [...] 1 AM EST 06/30/2008 10:32 AM EST Kirsti Wolf DO CHEMISTRY ORDERABLES Final Res ult Performing Organization Address City/[facility]/ZIP Co de Phone Number [facility] [address] [place] [address] * POCT URINE MICROALBUMIN (MICROAL/CR/AL:CR) (06/02/2008 9:10 AM EST) POCT URINE MICROALBUMIN 30 mg CREATININE, URINE POCT 200 mg 10 - 300 mg/dL ALBUMIN/CREATINI NE RATIO, URINE POCT 30 mg <=30 mg albumin/g creatinine Kristi Wolf DO POINT OF CARE TESTING Edited from Last 3 Months or Most Recently Relevant to Health Maintenance Insurance [facility] Advance Directives For more information, please contact: [phone] (7:30 AM - 6PM [facility], Thursday-Thursday) * Full Code (Latest Code Status on File) Date Activated Date Inactivated Comments 03/30/2017 9:46 AM 04/01/2017 3:40 PM Care Teams Foiling Machine Operator Relationship Specialty Start Date End Date DecGeo morales MD [address] [place] [phone] PCP - General Clinical Cardiac Electrophysiology 09/23/16 Cherelle Fierro MD [address] [place] [address], [address] [phone] Family Medicine 01/30/12 George Rob W, DO [address] [place] [phone] Consulting Physician Family Medicine 03/20/17
--- OUTSIDE RECORDS SUMMARY | 2024-12-28 13:20 | XMS_ITS | Encounter Summary ---
Author Organization [facility] tem Address [id number] [address] [place] [address] Care Team Providers Care Talent Management Specialist Name Role Phone Radha Dias DO Primary Care Provider [phone] Encounter Details Date Type Department Care Team (Late st Contact Info) Description 03/07/2022 Telephone [facility] [address] [place] [phone] Rachell Roger ARRT Social History Tobacco Use Types Packs/Day Years [...] Functional Status documented as of this encounter Mental Status * Question Answer Entry Date Author Overall Cognitive Status X 03/09/2022 9:05 AM EDT Alem Yoder, OTR/L documented in this encounter Miscellaneous Notes * Telephone Encounter - JANIE Bhatia - 03/07/2022 12:59 PM EDTSummary: MRI compatibility Patient came down for their MRI. [employer] attempted to interrogate device and stated this patient had an abandoned, unsafe lead and we could not continue with the MRI. RN made aware and patient sentback upstairs. Orders to be cancelled. documented in this encounter Plan of Treatment Not on file documented as of this encounter Goals Goal Patient Goal Type Associated Problems Recent Progress Patient-Stated? Author Return Home General Yes Mary Correa RN Note: Evaluation of progress towards goal: safe discharge to [facility] with Home Care and daughter, friend support documented as of this encounter Visit Diagnoses Not on filedocumented in this encounter Additional Health Concerns Infection Onset Date Last Indicated Resolved Time Enteric Rule-Out Comment:cancelled 03/06/2022 03/06/2022 03/08/2022 4:18 PM E DT documented as of this encounter Care Teams Talent Management Specialist Relationship Specialty Start Date End Date Radha Dias DO PCP - General Family Medicine 03/10/22 12/02/24 documented as of this encounter
--- OUTSIDE RECORDS SUMMARY | 2024-12-28 13:20 | XMS_ITS | Encounter Summary ---
Author Organization [facility] Address [facility] [place] [address] Care Team Providers Care Care Professionals Name Role Phone Unavailable Primary Care Provider Unavailabl e Reason for Visit * Reason Onset Date Comments Medication Refill 12/19/2024 Encounter Details Date Type Department Care Team (Late st Contact Info) Description 12/19/2024 Refill [facility] Pain Management [address] [place] [address] Morgan Velez, [address] [place] [address] Chronic pain syndrome; DDD (degenerative disc disease), lumbar; Lumbar radiculopathy Social History Tobacco Use Types Packs/Day Years [...] Declines to Respond No 04/22/2023 [facility] Utilities Answer Date Recorded In the past [...] place to sleep or slept in a fci (including now)? Yes 05/11/2023 Housing Stability Vital Sign Answer Chacorta e Recorded In the last 12 months, was t here a time when you were not able to pay the mortgage or rent on time? No 04/27/2024 In the past 12 months, how m any times have you moved where you were living? 1 04/27/2024 At any time in the past 12 m [facility], were you homeless or living in a fci (including now)? No 04/27/2024 Comments No Sex and Gender Information Value Date Recorded Sex Assigned at Not on file Legal Sex Female 3:26 PM EDT Gender Identity Female 06/03/2020 5:59 PM EST Sexual Orientation Straight 06/03/2020 5: 59 PM EST documented as of this encounter Miscellaneous Notes * Telephone Encounter - Olivia Almonte - 12/22/2024 8:27 AM EDT Attempted to inform pt that meds were sent to [facility] * Telephone Encounter - Olivia Almonte - 12/20/2024 4:31 PM EDT Pt had to cancel appt for tomorrow through her insurance and they told her there was nobody in the area that could do it. Asking to pleAse resfill her Rx. Pt rs to 01/05/25 * Telephone Encounter - Olivia Almonte - 12/19/2024 9:34 AM EDT Adelina 09/23/24 documented in this encounter Plan of Treatment Upcoming Encounters Date Type Department Care Team (Late st Contact Info) Description 01/05/2025 7:30 AM EDT Office Visit [facility] [address] [place] [address] Mihai Banerjee CNP [address] [facility] [place] [address] documented as of this encounter Visit Diagnoses Diagnosis Chronic pain syndrome DDD (degenerative disc disease), lumbar Degeneration of lumbar or lumbosacral intervertebral disc Lumbar radiculopathy Thoracic or lumbosacral neuritis or radiculitis, unspecified documented in this encounter Additional Health Concerns Assessment Noted Time PHQ-2 Depression Total Score: 0 03/29/20 24 7:45 AM EST documented as of this encounter
--- OUTSIDE RECORDS SUMMARY | 2024-12-28 13:20 | XMS_ITS | Clinical Summary ---
Author Organization [facility] Address [address], [address] [place] [address] Care Team Providers Care Automobile Salesman Name Role Phone George Rob DO Primary Care Provider [phone] Allergies Active Allergy Reactions Criticality Noted Date [...] mg by mouth daily Active nystatin (MYCOSTATIN) 507810 UNIT/GM cream Apply topically 2 times daily Apply topically 2 times daily. Active nystatin (MYCOSTATIN) 424014 UNIT/GM powder Apply topically 4 times daily [...] 12/08/2021 3:19 PM EDT Plan of Treatment Not on file Insurance [facility] [employer] Advance Directives * Full Code (Latest Code Status on File) Date Activated Date Inactivated Comments 05/25/2015 10:03 PM 05/28/2015 9:21 PM Care Teams Automobile Salesman Relationship Specialty Start Date End Date George Rob DO [address] [place] [address] PCP - General Family Medicine 05/28/15
--- OUTSIDE RECORDS SUMMARY | 2024-12-28 13:20 | XMS_ITS | Encounter Summary ---
Author Organization [facility] Address Formerly [facility] [place] [address] Care Team Providers Care Cash Register Repairer Name Role Phone Enrique Hebert DO Primary Care Provider [phone] No, Physician Primary Care Provider Unavailabl Marcia Espinoza RN Unavailable Unavailable Marcia Reynoso RN Unavailable Unavailable Marcia Reynoso RN Unavailable Unavailable Marcia Reynoso RN Unavailable Unavailable Marcia Reynoso RN Unavailable Unavailable Marcia Reynoso RN Unavailable Unavailable Marcia Reynoso RN Unavailable Unavailable Swapnil Hooks Unavailable Unavailable Radha Davalos RD Unavailable Unavailable Tona Nielsen PA-C Primary Care Provider [phone] Encounter Details Date Type Department Care Team (Late st Contact Info) Description 03/31/2023 [facility] [address] [place], [place] [id number] Danii Rincon, RN MSN Social History Tobacco [...] place to sleep or slept in a long term (including now)? Yes 01/14/2023 Comments No Sex and Gender Information Value Date Recorded Sex Assigned at Not on file Legal Sex Female 3:26 PM EDT Gender Identity Female 06/03/2020 5:59 PM EST Sexual Orientation Straight 06/03/2020 5: 59 PM EST documented as of this encounter Miscellaneous Notes * Quick Note - Danii Rincon RN MSN - 03/31/2023 10:44 AM EST [facility] agency: Accepted or Pending Name of agency: (if [facility], include region) [facility] can accept. [facility] created for the following services: [or waiting for ____ (i.e wound care)] Yes, SN/PT/OT/aide Verify the demographics (residential address) [address] [place] [address] What is the primary number to reach you? [phone] Who is your family physician/primary care physician? [phone]: call from Rafaela/PCP office stating Dr. Hebert will follow orders. Do you have a caregiver and/or teachable caregiver (list relationship, name & phone #)? Shi Jean Baptiste (Mother) [phone] (Home Phone) Has the patient been added to capacity board/tracking sheet? ([facility] only) Velia without limitations Estimated Discharge Date (KUNAL): 03/30 documented in this encounter Plan of Treatment Upcoming Encounters Date Type Department Care Team ([facility] st Contact Info) Description 01/05/2025 7:30 AM EDT Office Visit [facility] Pain Management [place] [address] [place] [address] Mihai Banerjee CNP [address] [place] [address] documented as of this encounter Visit Diagnoses [...] documented as of this encounter Care Teams Cash Register Repairer Relationship Specialty Start Date End Date Enrique Hebert DO [address] [facility] [place] [address] PCP - General Primary Care 03/30/23 04/29/23 No, Physician [facility] PCP - General 04/30/23 05/05/23 Tona Nielsen PA-C [address] [place] [address] PCP - General Internal Medicine 05/06/23 11/14/24 Marcia Reynoso, intelligence directorSupervisor [employer] 05/14/23 06/23/23 Marcia Reynoso, intelligence directorSupervisor [employer] 07/09/23 07/13/23 Marcia Reynoso, intelligence directorSupervisor [employer] 07/24/23 07/28/23 Marcia Reynoso, intelligence directorSupervisor [employer] 07/30/23 08/05/23 Marcia Reynoso, intelligence directorSupervisor [employer] 09/21/23 09/23/23 Marcia Reynoso, intelligence directorSupervisor [employer] 09/29/23 10/01/23 Marcia Reynoso, intelligence directorSupervisor [employer] 10/16/23 10/21/23 Swapnil Hooks Community Health Worker Case Management 01/27/2403/10 Radha Davalos, JULI Dietitian Dietitian/Nutritionis t 02/04/24 02/16/24 documented as of this encounter
--- OUTSIDE RECORDS SUMMARY | 2024-12-28 13:20 | XMS_ITS | Encounter Summary ---
Author Organization [facility] Address [id number] [address] [place] [address] Care Team Providers Care Leasing Agent Name Role Phone DiasRadha DO Primary Care Provider [phone] Encounter Details Date Type Department Care Team (Late st Contact Info) Description 03/05/2022 Orders Only [facility] [address] [place] [id number] Velia Wilkinson MD Social History Tobacco Use Types Packs/Day Years [...] on file documented as of this encounter Visit Diagnoses Not on filedocumented in this encounter Additional Health Concerns Infection Onset Date Last Indicated Resolved Time Enteric Rule-Out Comment:cancelled 03/06/2022 03/06/2022 03/08/2022 4:18 PM E DT documented as of this encounter Care Teams Leasing Agent Relationship Specialty Start Date End Date Radha Dias DO PCP - General Family Medicine 03/10/22 12/02/24 documented as of this encounter
--- OUTSIDE RECORDS SUMMARY | 2024-12-28 13:20 | XMS_ITS | Encounter Summary ---
Author Organization [facility] enter Address [address] [place] [address] Care Team Providers Care Tobacco Flavorer Name Role Phone Cherelle Fierro MD Unavailable [phone] Geo Leach MD Primary Care Provider [phone] George Rob DO Unavailable Unavailable Encounter Details Date Type Department Care Team (Late st Contact Info) Description 02/02/2017 Orders Only Cardiovascular Imaging Lab [facility] [address] [place] [phone] Sushila Armendariz RN SSS (sick sinus [...] Description 03/03/2025 8:00 AM EDT Office Visit Pediatric Clinical Nurse Specialist [facility] [address] [place] [phone] Geo Leach MD [address] [place] [phone] Scheduled Orders Name Type Priority Associated Diagnoses Orde r Schedule CHEM 7 (LYTES,BUN,CREA,GLUC) Lab Routine SSS (sick sinus syndrome) ([facility]) Expected: 02/02/2017, Expires: 02/02/2018 CBC,PLATELETS Lab Routine SSS (sick sinus syndrome) ([facility]) Expected: 02/02/2017, Expires: 02/02/2018 PROTIME-INR Lab Routine SSS (sick sinus syndrome) ([facility]) Expected: 02/02/2017, Expires: 02/02/2018 TYPE AND CROSS - PREADMISSION Blood Bank Routine SSS (sick sinus syndrome) ([facility]) Expected: 02/02/2017, Expires: 02/02/2018 documented as of this encounter Visit Diagnoses Diagnosis SSS (sick sinus syndrome)- Primary Sinoatrial node dysfunction documented in this encounter Care Teams Tobacco Flavorer Relationship Specialty Start Date End Date Geo Leach MD [address] [place] [address] PCP - General Clinical Cardiac Electrophysiology 09/23/16 Cherelle Fierro MD [address] [place] [address], [address] [address] Family Medicine 01/30/12 George Rob, [address] [place] [address] Consulting Physician Family Medicine 03/20/17 documented as of this encounter
--- OUTSIDE RECORDS SUMMARY | 2024-12-28 13:20 | XMS_ITS | Clinical Summary ---
Author Organization [facility] Address [address] [place] [address] Care Team Providers Care Nutritional Services Cook Name Role Phone Mk Conti MD Unavailable [phone] Tona Nielsen Primary Care Provider [phone] Allergies Active Allergy Reactions Criticality Noted Date [...] Ca 8.2 today - daily CBC Consult PT/OT/SENIOR PRODUCT CONSULTANT Will DC ene Assessment & Plan (10/03/2024 [...] up - Patient will need referral to [facility] neurology (for epileptologist) at discharge. - Recommend PT/OT. - Neuro will sign off. Assessment & Plan (10/03/2024 10:35 AM EDT): - neuro consulted at admission - Continue LEV 1g BID at least until outpt neuro follow up - Patient will need referral to [facility] neurology (for epileptologist) at discharge. - Recommend PT/OT. - Neuro will sign off. Assessment & Plan (10/02/2024 11:11 AM EDT): - neuro consulted at admission - Continue LEV 1g BID at least until outpt neuro follow up - Patient will need referral to [facility] neurology (for epileptologist) at discharge. - [...] follow up outpatient follow up with her barrel reamer for routine callus paring. No need for [...] follow up outpatient follow up with her barrel reamer for routine callus paring. No need for [...] injury, and seizure episode and elevated lactate. [place] [facility] [employer] interrogation No current indication for heparin [...] - 10/05/2024 5:01 PM EDT Hospital Encounter [facility] 5ABCD Surgery Stepdown [address] [place] [address] Andrzej Henry MD Schwarz, Stephanie, DO Saad, Hani, MD NSTEMI (non-ST elevated myocardial infarction) (CMS/HCC) (Primary Dx); Seizure (CMS/[facility]) Discharge Disposition: Home-Health Care [facility] (06) 10/01/2024 Travel from Last 3 Months Social History Tobacco Use Types Packs/Day Years Used Date Smoking Tobacco: Every Day Cigarettes Smokeless Tobacco: Never Tobacco Cessation:Ready to Q uit: Not Asked; Counseling Given: Not Answered Alcohol Use Standard Drinks/Week Comments Never 0 (1 standard drink = 0.6 oz pur e alcohol) [facility] Utilities Answer Date Recorded In the past 12 months has e [employer], gas, oil, or water [employer] threatened to shut off services in your [...] any time in the past 12 m [facility], were you homeless or living in a long-term (including now)? No 10/01/2024 Hunger Vital Sign [...] of19 resultswithin the time period is included. [facility] Signature Glucose POC 115(H) 70 - 105 mg/dL 10/05/2024 11:14 AM EDT [facility] ([facility]) Comment:lhagema Blood Capillary blood specimen / Unknown 10/05/2024 11:03 AM EDT 10/05/2024 11:14 AM EDT Narrative [facility] ([facility]) - 10/05/2024 11:14 AM EDT Waived Testing in the ED is performed under the ED CLIA certificate #[id number]. us Maye Negrete DO LAB BLOOD ORDERABLES Final Result [facility] ([facility]) [address] [id number] * (ABNORMAL) CBC auto differential (10/05/2024 6:22 AM EDT) Only the most recent of4 resultswithin the time period is included. Auto WBC 5.47 4.00 - 10.60 10*3/uL 10/05/2024 7:02 AM EDT [facility] ([facility]) RBC 3.36(L) 3.80 - 5.00 10*6/uL 10/05/2024 7:02 AM EDT [facility] ([facility]) Hemoglobin 10.2(L) 12.0 - 15.0 g/dL 10/05/2024 7:02 AM [facility] ([facility]) Hematocrit 31.5(L) 36.0 - 45.0 % 10/05/2024 7:02 AM [facility] ([facility]) MCV 93.8 82.0 - 98.0 fL 10/05/2024 7:02 AM [facility] ([facility]) MCH 30.4 27.0 - 33.0 pg 10/05/2024 7:02 AM [facility] ([facility]) MCHC 32.4 32.0 - 35.0 g/dL 10/05/2024 7:02 AM [facility] ([facility]) RDW 13.5 11.5 - 15.0 % 10/05/2024 7:02 AM [facility] ([facility]) Neutrophils % 45.2 40.0 - 72.0 % 10/05/2024 7:02 AM [facility] ([facility]) Lymphocytes % 41.0 20.0 - 45.0 % 10/05/2024 7:02 AM [facility] ([facility]) Monocytes % 8.8 5.0 - 12.0 % 10/05/2024 7:02 AM [facility] ([facility]) Eosinophils % 3.5 0.0 - 6.0 % 10/05/2024 7:02 AM [facility] ([facility]) Basophils % 1.1(H) 0.0 - 1.0 % 10/05/2024 7:02 AM [facility] ([facility]) Neutrophils Absolute 2.48 1.60 - 7.60 10*3/uL 10/05/2024 7:02 AM [facility] ([facility]) Lymphocytes Absolute 2.24 1.20 - 4.00 10*3/uL 10/05/2024 7:02 AM [facility] ([facility]) Monocytes Absolute 0.48 0.10 - 1.00 10*3/uL 10/05/2024 7:02 AM [facility] ([facility]) Eosinophils Absolute 0.19 0.00 - 0.50 10*3/uL 10/05/2024 7:02 AM [facility] ([facility]) Basophils Absolute 0.06 0.00 - 0.20 10*3/uL 10/05/2024 7:02 AM EDT [facility] ([facility]) Platelets 271 150 - 400 10*3/uL 10/05/2024 7:02 AM EDT [facility] ([facility]) nRBC % 0.0 0 % 10/05/2024 7:02 AM EDT [facility] ([facility]) Immature Granulocytes % 0.4 0.0 - 1.0 % 10/05/2024 7:02 AM EDT [facility] ([facility]) Immature Granulocytes Absolute 0.02 0.00 - 0.20 10*3/uL 10/05/2024 7:02 AM EDT [facility] ([facility]) Blood Venous blood specimen / Unknown Existing Catheter / Unknown 10/05/2024 6:22 AM EDT 10/05/2024 6:46 AM EDT Maye Negrete DO LAB BLOOD ORDERABLES Final Result [facility] ([facility]) [address] [place] [address] * (ABNORMAL) Basic metabolic panel (10/05/2024 6:22 AM EDT) Only the most recent of4 resultswithin the time period is included. Sodium 142 136 - 145 mmol/L 10/05/2024 7:07 AM EDT [facility] ([facility]) Potassium 4.1 3.5 - 5.1 mmol/L 10/05/2024 7:07 AM EDT [facility] ([facility]) Chloride 109(H) 98 - 107 mmol/L 10/05/2024 7:07 AM EDT [facility] ([facility]) CO2 28 21 - 31 mmol/L 10/05/2024 7:07 AM EDT [facility] ([facility]) BUN 28(H) 7 - 25 mg/dL 10/05/2024 7:07 AM EDT [facility] ([facility]) Creatinine 1.26(H) 0.60 - 1.20 mg/dL 10/05/2024 7:07 AM EDT [facility] ([facility]) Glucose 108(H) 70 - 100 mg/dL 10/05/2024 7:07 AM EDT [facility] ([facility]) Calcium 8.4(L) 8.6 - 10.3 mg/dL 10/05/2024 7:07 AM EDT [facility] ([facility]) Anion Gap 9 7 - 20 mmol/L 10/05/2024 7:07 AM EDT [facility] ([facility]) eGFR 53.0(L) >60.0 mL/min/1. 73m*2 10/05/2024 7:07 AM EDT [facility] ([facility]) Comment:[facility] s estimated glomerular filtration rate (eGFR) will [...] BUN/Creatinine Ratio 22.2 09/22 7:07 AM EDT [facility] ([facility]) Blood Venous blood specimen / Unknown Existing Catheter / Unknown 10/05/2024 6:22 AM EDT 10/05/2024 6:45 AM EDT Maye Negrete DO LAB BLOOD ORDERABLES Final Result [facility] ([facility]) [address] [place] [address] * Calcium, ionized (10/04/2024 11:16 AM EDT) Calcium, Ion 1.23 1.15 - 1.33 mmol/L 10/04/2024 11:22 AM EDT [facility] RESPIRATORY THERAPY Blood Blood sample taken from central line / Unknown Existing Catheter / Unknown 10/04/2024 11:16 AM EDT 10/04/2024 11:20 AM EDT us Maye Negrete DO LAB BLOOD ORDERABLES Final Result [facility] RESPIRATORY THERAPY [address] [place] [address], [place] * (ABNORMAL) Albumin (10/03/2024 10:44 AM EDT) Albumin 2.5(L) 3.5 - 5.7 g/dL 10/03/2024 12:34 PM EDT [facility] ([facility]) Blood Venous blood specimen / Unknown Existing Catheter / Unknown 10/03/2024 10:44 AM EDT 10/03/2024 10:50 AM EDT us Leonardo Moyer MD LAB BLOOD ORDERABLES Final Re sult Performing Organization Address City/[facility]/ZIP Co de Phone Number [facility] ([facility]) [address] [place] [address] * Vascular US lower extremity arterial duplex [...] Colorless, Yellow, Light-Yellow 10/02/2024 1:23 PM EDT [facility] ([facility]) Clarity, Urine Clear Clear 10/02/2024 1:23 PM EDT [facility] ([facility]) Specific [place], Urine 1.020 1.010 - 1.030 10/02/2024 1:23 PM EDT [facility] ([facility] pH, Urine 5.0 5.0 - 8.0 pH 10/02/2024 1:23 PM [facility] ([facility]) Leukocytes, Urine Moderate(A) Negative 10/02/2024 1:23 PM EDT [facility] ([facility]) Nitrite, Urine Negative Negative 10/02/2024 1:23 PM EDT [facility] ([facility]) Protein, Urine 30(A) Negative mg/dL 10/02/2024 1:23 PM T [facility] ([facility]) Glucose, Urine >=1000(A) Normal mg/dL 10/02/2024 1:23 PM EDT [facility] ([facility]) Bilirubin, Urine Negative Negative 10/02/2024 1:23 PM EDT [facility] ([facility]) Ketones, Urine Negative Negative mg/dL 10/02/2024 1:23 PM EDT [facility] ([facility]) Urobilinogen, Urine Normal Normal mg/dL 10/02/2024 1:23 PM EDT [facility] ([facility]) Blood, Urine Negative Negative 10/02/2024 1:23 PM EDT [facility] ([facility]) RBC, Urine 0-2 None Seen, 0-2 /HPF 10/02/2024 1:23 PM EDT [facility] ([facility]) WBC, Urine 11-20(A) None Seen, 0-2 /HPF 10/02/2024 1:23 PM EDT [facility] ([facility]) Squamous Epithelial, Urine Occasional None Seen, Occasional, Few /LPF 10/02/2024 1:23 PM EDT [facility] ([facility]) Casts, Urine Present(A) None Seen /LPF 10/02/2024 1:23 PM EDT [facility] ([facility]) Hyaline Casts, UA 3-5(A) 0 - 2 /LPF 10/02/2024 1:23 PM EDT [facility] ([facility]) Urine Urine specimen obtained by clean catch procedure / Unknown Non-blood Collection / Unknown 10/02/2024 1:01 PM EDT 10/02/2024 1:07 PM EDT us Jo-Ann Fowler MD LAB URINE ORDERABLES Final Result [facility]) [address] [place] [address] * Sodium, urine, random (10/02/2024 1:01 PM EDT) Sodium, Ur 28 mmol/L 10/02/2024 1:23 PM EDT [facility] ([facility]) Urine Urine specimen obtained by clean catch procedure / Unknown Non-blood Collection / Unknown 10/02/2024 1:01 PM EDT 10/02/2024 1:07 PM EDT us Jo-Ann Fowler MD LAB URINE ORDERABLES Final Result [facility] ([facility]) [address] [place] [address] * Protein, urine, random (10/02/2024 1:01 PM EDT) Protein, Ur 61.3 mg/dL 10/02/2024 1:23 PM EDT [facility] ([facility]) Comment:There are no establi shed reference values for random urine specimens. Urine Urine specimen obtained by clean catch procedure / Unknown Non-blood Collection / Unknown 10/02/2024 1:01 PM EDT 10/02/2024 1:07 PM EDT us Jo-Ann Fowler MD LAB URINE ORDERABLES Final Result [facility] ([facility]) [address] [place] [address] * Creatinine, urine, random (10/02/2024 1:01 PM EDT) Creatinine, Ur 200.0 26 - 299 mg/dL 10/02/2024 1:23 PM EDT [facility] ([facility]) Urine Urine specimen obtained by clean catch procedure / Unknown Non-blood Collection / Unknown 10/02/2024 1:01 PM EDT 10/02/2024 1:07 PM EDT us Jo-Ann Fowler MD LAB URINE ORDERABLES Final Result [facility] ([facility]) [address] [place] [address] * US renal complete (10/02/2024 11:58 AM [...] displayed on either side. The right kidney suceqfob73.5 centimeters in length , and the left [...] Hold for add-ons. 10/02/2024 7:01 AM EDT [facility] ([facility]) Comment:Auto resulted. Blood Venous blood specimen / Unknown 10/02/2024 4:42 AM EDT 10/02/2024 5:52 AM EDT Andrzej Henry MD LAB BLOOD ORDERABLES Final Resul t [facility] ([facility]) [address] [place] [address] * Magnesium (10/02/2024 4:42 AM EDT) Only the most recent of2 resultswithin the time period is included. Magnesium 2.2 1.9 - 2.7 mg/dL 10/02/2024 6:59 AM EDT [facility] ([facility]) Blood Venous blood specimen / Unknown Existing Catheter / Unknown 10/02/2024 4:42 AM EDT 10/02/2024 4:58 AM EDT us Korin Ansari GLASS ARTIST LAB BLOOD ORDERABLES Final Resu lt [facility] ([facility]) [address] [place] [address] * CK (10/02/2024 4:42 AM EDT) Total CK 56.0 30.0 - 223.0 U/L 10/02/2024 11:10 AM EDT [facility] ([facility]) Blood Venous blood specimen / Unknown Existing Catheter / Unknown 10/02/2024 4:42 AM EDT 10/02/2024 4:58 AM EDT us Jo-Ann Fowler MD LAB BLOOD ORDERABLES Final Result Performing Organization Address City/[facility]/ZIP Co de Phone Number [facility] ([facility]) [address] [place] [address] * LIMITED ECHO (TTE) W/ LIMITED DOPPLER, COLOR FLOW AND IMAGING AGENT (10/01/2024 3:20 PM EDT) Anatomical Region Laterality Modality Other 10/01/2024 3:03 PM EDT Narrative 10/02/2024 1:31 PM EDT [facility] Heart Station [address] [place] [address] [phone] (fax) Echocardiogram-[facility] Name: LISA ORGAN Study Date: 10/01/2024 03:03 PM B/P: 127 mmHg/111 mmHg HR: Date of : 1975 Location: [facility] Height: 62 in. Age: 49 year(s) [...] versus fat pad. Procedure Staff Reading Group: [facility] Multi [facility] Claims Adjuster: Varsha Hyde RDCS Ordering Physician: JUAN C ONTIVEROS Procedure Note Juan C Ontiveros MD - 10/02/2024 1 1 [facility] [address] [facility] [place] [address] [phone] (fax) Echocardiogram-[facility] Name: LISA ORGAN Study Date: 10/01/2024 03:03 PM B/P: 127 mmHg/111 mmHg HR: Date of : 1975 Location: [facility] Height: 62 in. Age: 49 year(s) [...] versus fat pad. Procedure Staff Reading Group: [facility] Multi [facility] Claims Adjuster: Varsha Hyde RDCS Ordering Physician: JUAN C ONTIVEROS Juan C Ontiveros MD CV ECHO PROCEDURES Final Result * (ABNORMAL) Lactic acid with 4 hour reflex (10/01/2024 2:17 PM EDT) Only the most recent of2 resultswithin the time period is included. Lactate 3.1(HH) 0.5 - 2.2 mmol/L 10/01/2024 2:54 PM EDT [facility] ([facility]) Comment:Previous result veri fied on 10/01/2024 1150 on specimen/case [id number] called with component Lactate blood venous for procedure Lactic acid, venous, whole blood with reflex with value 3.4 mmol/L. Blood Venous blood specimen / Unknown Existing Catheter / Unknown 10/01/2024 2:17 PM EDT 10/01/2024 2:21 PM EDT Andrzej Henry MD LAB BLOOD ORDERABLES Final Resul t [facility] ([facility]) [address] [place] [address] * XR chest 1 view (10/01/2024 1:28 [...] 72(HH) <15 ng/L 10/01/2024 11:51 AM EDT [facility] ([facility]) Blood Venous blood specimen / Unknown Existing Catheter / Unknown 10/01/2024 11:02 AM EDT 10/01/2024 11:14 AM EDT Andrzej Henry MD LAB BLOOD ORDERABLES Final Resul t [facility]) [address] [place] [address] * TSH3 Reflex to FT4 (10/01/2024 11:02 AM EDT) TSH 3.71 0.34 - 5.60 mIU/L 10/01/2024 11:54 AM EDT [facility]) Blood Venous blood specimen / Unknown Existing Catheter / Unknown 10/01/2024 11:02 AM EDT 10/01/2024 11:14 AM EDT Andrzej Henry MD LAB BLOOD ORDERABLES Final Resul t [facility]) [address] [place] [address] * B-type natriuretic peptide (10/01/2024 11:02 AM EDT) BNP 19 0 - 100 pg/mL 10/01/2024 11:42 AM EDT [facility] ([facility]) Blood Venous blood specimen / Unknown Existing Catheter / Unknown 10/01/2024 11:02 AM EDT 10/01/2024 11:14 AM EDT Andrzej Henry MD LAB BLOOD ORDERABLES Final Resul t Performing Organization Address City/[facility]/ZIP Co de Phone Number [facility]) [address] [place] [address] * (ABNORMAL) Hemoglobin A1c (10/01/2024 11:02 AM EDT) Pathologist [facility] Hemoglobin A1C 10.7(H) 4.0 - 6.0 % 10/02/2024 9:31 AM EDT [facility] ([facility]) Estimated Average Glucose 260 mg/dL 10/02/2024 9:31 AM EDT [facility] ([facility]) Blood Venous blood specimen / Unknown Existing Catheter / Unknown 10/01/2024 11:02 AM EDT 10/01/2024 11:14 AM EDT Juan C Ontiveros MD LAB BLOOD ORDERABLES Final Resul t Performing Organization Address [facility] Co de Phone Number [facility]) [address] [place] [phone] * (ABNORMAL) Lipid panel (10/01/2024 11:02 AM EDT) Triglycerides 207(H) <150 mg/dL 10/01/2024 11:39 AM EDT [facility]) Comment: TRIGLYCERIDE REFERENCE RANGE: 20 YEARS AND OLDER CARDIOVASCULAR RISK LESS THAN 150 mg/dL LOW RISK 150 TO 199 mg/dL BORDERLINE RISK 200 mg/dL AND GREATER HIGH RISK Cholesterol 219(H) 120 - 200 mg/dL 10/01/2024 11:39 AM EDT [facility]) LDL Calculated 129 0 - 160 mg/dL 10/01/2024 11:39 AM EDT [facility] ([facility]) HDL 49 23 - 92 mg/dL 10/01/2024 11:39 AM EDT [facility] ([facility]) Non HDL Cholesterol 170 10/01/2024 11:39 AM EDT [facility] ([facility]) Total VLDL-C 41(H) 0 - 40 mg/dL 10/01/2024 11:39 AM EDT [facility] ([facility]) Cholesterol/HDL Ratio 4.5 mg/dL 10/01/2024 11:39 AM EDT [facility] ([facility]) Blood Venous blood specimen / Unknown Existing Catheter / Unknown 10/01/2024 11:02 AM EDT 10/01/2024 11:14 AM EDT Andrzej Henry MD LAB BLOOD ORDERABLES Final Resul t [facility]) [address] [place] [address] * (ABNORMAL) Comprehensive metabolic panel (10/01/2024 11:02 AM EDT) Sodium 131(L) 136 - 145 mmol/L 10/01/2024 11:51 AM EDT [facility] ([facility]) Potassium 4.1 3.5 - 5.1 mmol/L 10/01/2024 11:51 AM EDT [facility] ([facility]) Chloride 99 98 - 107 mmol/L 10/01/2024 11:51 AM EDT [facility] ([facility]) CO2 22 21 - 31 mmol/L 10/01/2024 11:51 AM EDT [facility] ([facility]) Anion Gap 14 7 - 20 mmol/L 10/01/2024 11:51 AM EDT [facility] ([facility]) BUN 26(H) 7 - 25 mg/dL 10/01/2024 11:51 AM EDT [facility] ([facility]) Creatinine 1.99(H) 0.60 - 1.20 mg/dL 10/01/2024 11:51 AM EDT [facility] ([facility]) BUN/Creatinine Ratio 13.1 09/22 11:51 AM EDT [facility] ([facility]) Glucose 531(HH) 70 - 100 mg/dL 10/01/2024 11:51 AM T [facility] ([facility]) Calcium 7.6(L) 8.6 - 10.3 mg/dL 10/01/2024 11:51 AM T [facility] ([facility]) AST 9(L) 13 - 39 U/L 10/01/2024 11:51 AM T [facility] ([facility]) ALT (SGPT) 11 7 - 52 U/L 10/01/2024 11:51 AM T [facility] ([facility]) Alkaline Phosphatase 104 34 - 104 U/L 10/01/2024 11:51 AM T [facility] ([facility]) Total Protein 6.1 6.0 - 8.3 g/dL 10/01/2024 11:51 AM [facility] ([facility]) Albumin 3.4(L) 3.5 - 5.7 g/dL 10/01/2024 11:51 AM [facility] ([facility]) Total Bilirubin 0.4 0.3 - 1.0 mg/dL 10/01/2024 11:51 AM [facility] ([facility]) eGFR 30.6(L) >60.0 mL/min/1. 73m*2 10/01/2024 11:51 AM [facility] ([facility]) Comment:[facility] s estimated glomerular filtration rate (eGFR) will [...] MD LAB BLOOD ORDERABLES Final Resul t [facility] ([facility]) [address] [place] [address] * ECG 12 lead (10/01/2024 10:26 AM EDT) Ventricular Rate 94 BPM GE MUSE Atrial Rate 94 BPM GE MUSE [place] Interval 174 ms GE MUSE QRS DURATION 88 ms GE MUSE QT Interval 384 ms GE MUSE QTC CALCULATION(BAZE TT) 480 ms GE MUSE P [place] 54 degrees GE MUSE R-[place] 12 degrees GE MUSE T Wave [place] 15 degrees GE MUSE 10/01/2024 10:1 [...] GE MUSE from Last 3 Months Insurance [employer] Advance Directives * Full Code (Latest Code Status on File) Date Activated Date Inactivated Comments 10/01/2024 9:44 AM 10/05/2024 7:01 PM Care Teams Nutritional Services Cook Relationship Specialty Start Date End Date Tona Nielsen PA [address] [place] [id number] PCP - General 10/05/24 Mk Conti MD [address] [place] [id number] Orthopaedic Surgery 10/05/24
--- NOTE | 2024-12-28 13:29 | ED.GENADUL1 ---
HPI HPI - General Adult General Chief complaint: Weakness Stated complaint: WEAKNESS Time Seen by Provider: 12/28/24 13:05 Source: patient Mode of arrival: ambulance Limitations: no limitations History of Present Illness HPI narrative: 49-year-old female presents to the emergency department because of weakness in her left arm and her left leg. She states she was like this when she woke up at 11:00 this morning, about 2-1/2 hours ago. She was not like that when she went to bed last night at midnight. She also states that when she touches her left hand with the right hand it feels like a pinprick. She states is also like that in her left leg and at her left ear. She does not complain of a headache. No fever or injury. She has had a stroke in the past, the right side but she states it mostly resolved but not completely. Related Data Home Medications ?Medication ?Instructions ?Recorded ?Confirmed albuterol sulfate 90 mcg/actuation 1 puff inhalation Q4H PRN 10/23/22 12/28/24 aerosol inhaler (Ventolin HFA) shortness of breath or wheezing aspirin 81 mg tablet,delayed 81 mg PO .daily 10/23/22 12/28/24 release chlorthalidone 25 mg tablet 25 mg PO .daily 10/23/22 12/28/24 lisinopril 40 mg tablet 40 mg PO .daily 10/23/22 12/28/24 quetiapine 400 mg tablet 800 mg PO .daily 10/23/22 12/28/24 levothyroxine 75 mcg tablet 75 mcg PO .ACB 06/25/24 12/28/24 loratadine 10 mg tablet 10 mg PO .QD 06/25/24 12/28/24 nortriptyline 25 mg capsule 25 mg PO .QHS 06/25/24 12/28/24 blood-glucose sensor (Dexcom G6 09/30/24 09/30/24 Sensor device) citalopram 40 mg tablet 40 mg PO DAILY 09/30/24 12/28/24 insulin pump cart,auto,BT,G6/7 09/30/24 12/28/24 (Omnipod 5 G6-G7 Pods (Gen 5) subcutaneous cartridge) levetiracetam 1,000 mg tablet 1,000 mg PO Q12H 09/30/24 12/28/24 metoprolol succinate 50 mg 50 mg PO DAILY 09/30/24 12/28/24 tablet,extended release 24 hr oxycodone-acetaminophen 5 mg-325 1 tab PO Q8H PRN pain 09/30/24 12/28/24 mg tablet paliperidone 9 mg tablet,extended 9 mg PO Q24H 09/30/24 12/28/24 release 24 hr pantoprazole 40 mg tablet,delayed 40 mg PO DAILY 09/30/24 12/28/24 release pregabalin 75 mg capsule 75 mg PO Q12H 09/30/24 12/28/24 tizanidine 4 mg tablet 8 mg PO BEDTIME 09/30/24 12/28/24 urea 40 % topical cream applic topical 09/30/24 hydroxyzine pamoate 100 mg capsule 100 mg PO BEDTIME 12/28/24 12/28/24 insulin glargine 100 unit/mL unit subcut DAILY 12/28/24 subcutaneous solution (Lantus U-100 Insulin) insulin lispro 100 unit/mL 1 sliding scale dose subcut ACHS 12/28/24 12/28/24 subcutaneous pen pen needle, diabetic 32 gauge x 12/28/24 12/28/24/32 (Denise 2nd Gen Pen Needle) Allergies Allergy/AdvReac Type Severity Reaction Status Date / Time latex Allergy Rash Verified 12/28/24 13:13 vancomycin Allergy Rash Verified 12/28/24 13:13 acetaminophen (From AdvReac Rash Verified 12/28/24 13:13 Darvocet-N) adhesive tape AdvReac Rash Verified 12/28/24 13:13 codeine AdvReac Rash Verified 12/28/24 13:13 dextrose 5 % in water (From AdvReac Rash Verified 12/28/24 13:13 Zyvox) fentanyl AdvReac Rash Verified 12/28/24 13:13 ibuprofen AdvReac Rash Verified 12/28/24 13:13 linezolid (From Zyvox) AdvReac Rash Verified 12/28/24 13:13 propoxyphene (From AdvReac Rash Verified 12/28/24 13:13 Darvocet-N) iv dye Allergy Rash Uncoded 12/28/24 13:13 Opioid HPI Opioid Management Most Recent Opioid Data: Last Pain Scale 10 09/30/24, 22:55 Ur Phencyclidine Scrn, (NEGATIVE) Negative Today, 13:44 Review of Systems ROS Narrative A ten point review of systems is negative except as noted above. PFSH PFSH Social History Smoking status: Current every day smoker Little interest or pleasure in doing things: not at all Feeling down, depressed, or hopeless: not at all Exam Narrative Exam Narrative: Nurses note and vital signs reviewed and patient is not hypoxic. General: The patient appears in no acute respiratory distress. She is mildly drowsy. Skin: Warm, dry, no pallor noted. There is no rash noted. Head: Normocephalic, atraumatic Eye: Normal conjunctiva, no drainage, EOMI. PERRL Ears, Nose, Mouth, and Throat: oral mucosa is moist. Nares patent. Cardiovascular: Regular Rate and Rhythm Respiratory: Patient is in no distress, no accessory muscle use, lungs are clear to auscultation, no wheezing, rales or rhonchi Back: non-tender GI: Soft and nontender Musculoskeletal: The patient has no evidence of calf tenderness, no pitting edema, symmetrical pulses noted bilaterally Neurological: The patient is awake. She can tell me her name and where she is but not the year or the month. She can tell me why she is here. I do not appreciate a facial droop. She has right arm and right leg weakness and ataxia from remote stroke, this is unchanged. She has decreased strength in all muscle groups of the left arm and the left leg compared to the right. She has limb ataxia in the left arm and the left leg. Psychiatric: Cooperative NIH score is 9, one point for 1B, one point for 4, one point for 5A, two points for 6A, two points for 7, one point foe 8, and one point for 10 Constitutional Vital Signs, click to edit/add: Last Vital Signs Temp 98.0 F 12/28/24 13:05 Pulse 93 H 12/28/24 14:30 Resp 19 12/28/24 14:30 BP 112/89 12/28/24 13:13 Pulse Ox 95 12/28/24 14:20 O2 Del Method Room Air 12/28/24 13:21 Course Vital Signs Vital signs: Vital Signs Temperature 98.0 F 12/28/24 13:05 Pulse Rate 97 H 12/28/24 13:05 Respiratory Rate 14 12/28/24 13:05 Blood Pressure 112/89 08/06/25 13:05 Pulse Oximetry 98 12/28/24 13:05 Oxygen Delivery Method Room Air 12/28/24 13:05 Temperature 98.0 F 12/28/24 13:05 Pulse Rate 93 H 12/28/24 14:30 Respiratory Rate 19 12/28/24 14:30 Blood Pressure 112/89 12/28/24 13:13 Pulse Oximetry 95 12/28/24 14:20 Oxygen Delivery Method Room Air 12/28/24 13:21 Medical Decision Making MDM Narrative Medical decision making narrative: CT per radiologist shows no acute findings. CTA cannot be performed because of severe allergy to IV contrast. She also cannot have an MRI because she has a noncompatible pacemaker. Case discussed with Dr. Maria, neurointerventional list at [facility], who recommends loading with Plavix and aspirin and a repeat CT tomorrow with admission here. He also recommended bilateral carotid Dopplers. Case discussed with Dr. Kruger, hospitalist, and the patient is admitted here. Differential Diagnosis Differential Diagnosis: CVA, substance abuse Lab Data Lab results reviewed: Yes I reviewed the patient's lab results Labs: Lab Results 12/28/24 12/28/24 Range/Units 13:40 13:44 WBC 9.7 (4.0-11.0) 10^3/uL RBC 3.95 L (4.20-5.40) 10^6/uL Hgb 12.4 (12.0-16.0) g/dL Hct 35.0 L (36.0-48.0) % MCV 88.6 (81.0-99.0) fL MCH 31.4 (26.7-34.0) pg MCHC 35.4 H (29.9-35.2) g/dL RDW 12.7 (11.0-15.0) % Plt Count 263 (150-450) 10^3/uL MPV 9.5 (9.5-13.5) fL Neut % (Auto) 70.8 (43.0-75.0) % Lymph % (Auto) 21.3 (20.5-60.0) % Becker % (Auto) 5.6 (1.7-12.0) % Eos % (Auto) 1.1 (0.9-7.0) % Baso % (Auto) 0.5 (0.2-2.0) % Neut # (Auto) 6.9 H (1.4-6.5) 10^3/uL Lymph # (Auto) 2.1 (1.2-3.8) 10^3/uL Becker # (Auto) 0.5 (0.3-0.8) 10^3/uL Eos # (Auto) 0.1 (0.0-0.7) 10^3/uL Baso # (Auto) 0.1 (0.0-0.1) 10^3/uL Abs Immat Gran (auto) 0.07 H (0.00-0.03) 10^3/uL Imm/Tot Granulo (auto) 0.7 H (0.0-0.5) % PT 10.3 (9.0-11.6) sec INR 0.97 APTT 21.4 L (22.3-36.2) sec Sodium 134 L (136-145) mmol/L Potassium 3.8 (3.5-5.1) mmol/L Chloride 97 L (98-107) mmol/L Carbon Dioxide 22.9 (21.0-32.0) mmol/L Anion Gap 17.9 BUN 31.0 H (7.0-18.0) mg/dL Creatinine 1.78 H (0.55-1.02) mg/dL Est GFR ( Amer) 37 L (>=60 mL/min/1.73m^2) Est GFR (Non-Af Amer) 31 L (>=60 mL/min/1.73m^2) BUN/Creatinine Ratio 17.4 Glucose 246 H (74-106) mg/dL Calcium 9.2 (8.5-10.1) mg/dL Urine Color Lt. yellow (YELLOW) Urine Clarity Clear (CLEAR) Urine pH 6.0 (5.0-9.0) Ur Specific [place] 1.015 (1.005-1.025) Urine Protein 30 A (NEG/TRACE) mg/dL Urine Glucose (UA) >=1000 A (NEGATIVE) mg/dL Urine Ketones Negative (NEGATIVE) mg/dL Urine Occult Blood Small A (NEGATIVE) Urine Nitrite Negative (NEGATIVE) Urine Bilirubin Negative (NEGATIVE) Urine Urobilinogen 0.2 (0.2-1.0) EU/dL Ur Leukocyte Esterase Negative (NEGATIVE) Urine RBC 2-5 A (0-2) #/HPF Urine WBC 2-5 A (NONE SEEN) #/HPF Ur Squamous Epith Cells Rare (NONE/RARE) #/LPF Urine Crystals None seen (None Seen) #/HPF Urine Bacteria Moderate A (NONE SEEN) #/HPF Urine Casts None seen (NONE SEEN) #/LPF Urine Mucus None seen (NONE SEEN) Urine Yeast Seen A (NONE SEEN) Ur Culture Indicated? Yes-[facility] [place] Urine Opiates Screen Negative (NEGATIVE) Ur Buprenorphine Scrn Negative (NEGATIVE) Ur Oxycodone Screen Positive A (NEGATIVE) Urine Methadone Screen Negative (NEGATIVE) Acetaminophen <2.0 L (10.0-30.0) ug/mL Ur Barbiturates Screen Negative (NEGATIVE) U Tricyclic Antidepress Positive A (NEGATIVE) Ur Phencyclidine Scrn Negative (NEGATIVE) Ur Amphetamines Screen Negative (NEGATIVE) U Methamphetamines Scrn Negative (NEGATIVE) U Benzodiazepines Scrn Negative (NEGATIVE) Urine Cocaine Screen Negative (NEGATIVE) U Cannabinoids Screen Negative (NEGATIVE) Ethanol Quant <3 mg/dL Imaging Data Chest x-ray: Radiologist's impression: ITS Impressions Chest X-Ray 12/28/24 13:12 IMPRESSION: NO ACUTE PROCESS. Impression dictated by: Mk Gordon Jr., D.O. 12/28/2024 1:35 PM Dictation Location: [place] [address] Electronically authenticated by: [id number] Y Date: 12/28/2024 13:35 Procedure: CT stroke head/brain wo con CT BRAIN WITHOUT CONTRAST: CLINICAL HISTORY: left sided weakness COMPARISON: CT brain 12/02/2024 TECHNIQUE: Contiguous axial unenhanced images were obtained through the brain. This CT exam was performed using one or more following dose reduction techniques: Automated exposure control, adjustment of the mA and/or kV according to patient size, or use of iterative reconstruction technique. FINDINGS: There is no evidence of midline shift, intra or extra-axial fluid collection, hemorrhage or CT evidence of stroke. Cortical atrophy with chronic microvascular ischemic changes. Posterior fossa appears unremarkable. Visualized intraorbital contents demonstrate no acute findings. Visualized paranasal sinuses are clear. The surrounding soft tissues are normal. IMPRESSION: NO ACUTE INTRACRANIAL ABNORMALITY. Impression dictated by: Mk Gordon Jr., D.O. 12/28/2024 1:34 PM Dictation Location: [facility]--23 ECG Data Attestation: I personally reviewed and interpreted this ECG as follows: (EKG on my interpretation shows sinus rhythm with rate of 96 and no acute change) Discharge Plan Discharge Chief Complaint: Weakness Clinical Impression: Acute CVA (cerebrovascular accident) Patient Disposition: Admitted As Inpatient Time of Disposition Decision: 15:26 Condition: Fair
[2024-12-28 13:51] LABS: Hematocrit 35.0 % (36.0-48.0); Hemoglobin 12.4 g/dL (12.0-16.0); Immature Granulocytes Abs Auto 0.07 10^3/uL (0.00-0.03); Immature Granulocytes Pct Auto 0.7 % (0.0-0.5); Lymphocytes Absolute Auto 2.1 10^3/uL (1.2-3.8); Mean Corpuscular HGB Conc 35.4 g/dL (29.9-35.2); Mean Corpuscular Hemoglobin 31.4 pg (26.7-34.0); Mean Corpuscular Volume 88.6 fL (81.0-99.0); Platelet Count 263 10^3/uL (150-450); Red Blood Count 3.95 10^6/uL (4.20-5.40); White Blood Count 9.7 10^3/uL (4.0-11.0)
[2024-12-28 13:57] LABS: Glucose Urine UA >=1000 mg/dL (NEGATIVE)
[2024-12-28 14:12] LABS: Cannabinoid Screen Urine NEGATIVE (NEGATIVE); Methamphetamines Screen Urine NEGATIVE (NEGATIVE); Tricyclic Antidepressant Urine POSITIVE (NEGATIVE)
[2024-12-28 14:15] LABS: INR 0.97; Partial Thromboplastin Time 21.4 sec (22.3-36.2); Prothrombin Time 10.3 sec (9.0-11.6)
[2024-12-28 14:19] LABS: Acetaminophen <2.0 ug/mL (10.0-30.0)
[2024-12-28 14:22] LABS: Cast Seen? NONE SEEN #/LPF (NONE SEEN); Crystals Seen? None Seen #/HPF (None Seen); Urine Culture Indicated YES-FRMC
[2024-12-28 14:31] LABS: Anion Gap 17.9; Blood Urea Nitrogen 31.0 mg/dL (7.0-18.0); Calcium 9.2 mg/dL (8.5-10.1); Carbon Dioxide 22.9 mmol/L (21.0-32.0); Chloride 97 mmol/L (98-107); Estimated GFR (African America 37 (>=60 mL/min/1.73m^2); Estimated GFR (Non-African Ame 31 (>=60 mL/min/1.73m^2); Glucose 246 mg/dL (74-106); Potassium 3.8 mmol/L (3.5-5.1); Sodium 134 mmol/L (136-145)
[2024-12-28] MEDS: ASPIRIN 81 MG TAB.CHEW 324 MG PO (14:39)
[2024-12-28] MEDS: CLOPIDOGREL BISULFATE 75 MG TABLET 300 MG PO (14:39)
--- NOTE | 2024-12-28 16:17 | PM.IMHP1 ---
Internal Medicine - H&P: HPI History of Present Illness Chief complaint: WEAKNESS, ACUTE CVA Narrative: Miss Jean Baptiste is a 9-year-old female with a past medical history notable for generalized seizures, uncontrolled diabetes, and prior CVA who presents hospital today with a chief complaint of left-sided weakness. Patient states that last night she had a seizure, she has seizures at home often, she does not know which neurologist she she is and she has not had any change in her Keppra dose recently. She went to bed not feeling weak, when she woke up today around 11 AM she noticed left-sided weakness in her arms and legs. She is speaking without difficulty, she noticed no facial droop or difficulty swallowing. She is a somewhat poor historian, she is not able to tell me her other medical problems or medications other than she knows she takes Keppra. Review of Systems ROS Status of ROS 10 or more systems reviewed and unremarkable except as noted in history and below PFSH PFSH Social History Smoking status: Current every day smoker Little interest or pleasure in doing things: not at all Feeling down, depressed, or hopeless: not at all Meds Home Medications and Allergies Home Medications ?Medication ?Instructions ?Recorded ?Confirmed ?Type albuterol sulfate 90 mcg/actuation 1 puff inhalation Q4H PRN 10/23/22 12/28/24 History aerosol inhaler (Ventolin HFA) shortness of breath or wheezing aspirin 81 mg tablet,delayed 81 mg PO .daily 10/23/22 12/28/24 History release chlorthalidone 25 mg tablet 25 mg PO .daily 10/23/22 12/28/24 History lisinopril 40 mg tablet 40 mg PO .daily 10/23/22 12/28/24 History quetiapine 400 mg tablet 800 mg PO .daily 10/23/22 12/28/24 History levothyroxine 75 mcg tablet 75 mcg PO .ACB 06/25/24 12/28/24 History loratadine 10 mg tablet 10 mg PO .QD 06/25/24 12/28/24 History nortriptyline 25 mg capsule 25 mg PO .QHS 06/25/24 12/28/24 History blood-glucose sensor (Dexcom G6 09/30/24 09/30/24 History Sensor device) citalopram 40 mg tablet 40 mg PO DAILY 09/30/24 12/28/24 History insulin pump cart,auto,BT,G6/7 09/30/24 12/28/24 History (Omnipod 5 G6-G7 Pods (Gen 5) subcutaneous cartridge) levetiracetam 1,000 mg tablet 1,000 mg PO Q12H 09/30/24 12/28/24 History metoprolol succinate 50 mg 50 mg PO DAILY 09/30/24 12/28/24 History tablet,extended release 24 hr oxycodone-acetaminophen 5 mg-325 1 tab PO Q8H PRN pain 09/30/24 12/28/24 History mg tablet paliperidone 9 mg tablet,extended 9 mg PO Q24H 09/30/24 12/28/24 History release 24 hr pantoprazole 40 mg tablet,delayed 40 mg PO DAILY 09/30/24 12/28/24 History release pregabalin 75 mg capsule 75 mg PO Q12H 09/30/24 12/28/24 History tizanidine 4 mg tablet 8 mg PO BEDTIME 09/30/24 12/28/24 History urea 40 % topical cream applic topical 09/30/24 History hydroxyzine pamoate 100 mg capsule 100 mg PO BEDTIME 12/28/24 12/28/24 History insulin glargine 100 unit/mL unit subcut DAILY 12/28/24 History subcutaneous solution (Lantus U-100 Insulin) insulin lispro 100 unit/mL 1 sliding scale dose subcut ACHS 12/28/24 12/28/24 History subcutaneous pen pen needle, diabetic 32 gauge x 12/28/24 12/28/24 History (Denise 2nd Gen Pen Needle) Allergies Allergy/AdvReac Type Severity Reaction Status Date / Time latex Allergy Rash Verified 12/28/24 13:13 vancomycin Allergy Rash Verified 12/28/24 13:13 acetaminophen (From AdvReac Rash Verified 12/28/24 13:13 Darvocet-N) adhesive tape AdvReac Rash Verified 12/28/24 13:13 codeine AdvReac Rash Verified 12/28/24 13:13 dextrose 5 % in water (From AdvReac Rash Verified 12/28/24 13:13 Zyvox) fentanyl AdvReac Rash Verified 12/28/24 13:13 ibuprofen AdvReac Rash Verified 12/28/24 13:13 linezolid (From Zyvox) AdvReac Rash Verified 12/28/24 13:13 propoxyphene (From AdvReac Rash Verified 12/28/24 13:13 Darvocet-N) iv dye Allergy Rash Uncoded 12/28/24 13:13 Exam Narrative Exam Narrative: General: Awake and alert, no acute distress, currently eating crackers HEENT: Normocephalic, atraumatic, no scleral icterus noted Lungs: Clear to auscultation bilaterally Cardiac: Regular rate and rhythm, no murmurs appreciated GI: Soft, nontender, regular bowel sounds. Extremities: Active and passive range of motion intact throughout, no edema Neuro: Cranial nerves II through XII intact, she is unable to extend her left arm in front of her, when this is passively extended it does drop into her lap. With the left foot, she is unable lift off the bed. There are no sensory deficits noted. Skin: No rashes or lesions, no signs of jaundice Constitutional Vital Signs, click to edit/add: Last Vital Signs Temp 98.0 F 12/28/24 13:05 Pulse 96 H 12/28/24 15:50 Resp 13 12/28/24 15:50 BP 112/89 12/28/24 13:13 Pulse Ox 95 12/28/24 14:20 O2 Del Method Room Air 12/28/24 13:21 Internal Medicine - H&P: Reslt Labs Labs: Short CBC 12/28/24 Range/Units 13:40 WBC 9.7 (4.0-11.0) 10^3/uL Hgb 12.4 (12.0-16.0) g/dL Hct 35.0 L (36.0-48.0) % Plt Count 263 (150-450) 10^3/uL BMP 12/28/24 13:40 Sodium 134 L Potassium 3.8 Chloride 97 L Carbon Dioxide 22.9 BUN 31.0 H Creatinine 1.78 H Glucose 246 H Calcium 9.2 Urine 12/28/24 Range/Units 13:44 Urine Color Lt. yellow (YELLOW) Urine Clarity Clear (CLEAR) Urine pH 6.0 (5.0-9.0) Ur Specific [place] 1.015 (1.005-1.025) Urine Protein 30 A (NEG/TRACE) mg/dL Urine Glucose (UA) >=1000 A (NEGATIVE) mg/dL Urinary Catheter Management Urinary Catheter Management Straight: Cath placed during this visit: yes Urethral indwelling: No Insertion date: 12/28/24 Insertion time: 13:51 Assessment and Plan Assessment and Plan (1) Acute CVA (cerebrovascular accident): Assessment and Plan: ? Admit to [facility], with telemetry, inpatient status ? Her NIH was 9 in the emergency room ?She is unable to have any CT angiogram secondary to a severe allergy to IV contrast ? She is unable to have an MRI secondary to her pacemaker ? Cory stroke was contacted, recommending loading with aspirin and Plavix tonight, this was done in the emergency room. ? Aspirin and Plavix daily starting tomorrow morning ?PT OT consulted ? Checking A1c and lipid profile ? Echocardiogram ordered ? Telehealth neurology consulted ?Plan for repeat CT scan without contrast of her head tomorrow morning for telehealth to review (2) Hyperglycemia: Assessment and Plan: ? A1c ordered ? Glucose checks ACHS ? Sliding scale, plan to fine-tune her insulin requirements tomorrow (3) Generalized seizure: Assessment and Plan: ? She is on Keppra 1000 twice daily as a home medication yet she is still having issues with seizures ? Increase this to 1500 mg twice daily (4) Uncontrolled diabetes mellitus: Assessment and Plan: See above (5) CKD (chronic kidney disease): Assessment and Plan: ? Stable and at her baseline Plan ? Her tox screen was positive for oxycodone and TCAs ? This is consistent with her home medications as she has oxycodone and nortriptyline ordered ? Her Tylenol level was undetectable ?DVT prophylaxis addressed ? Regular diet ? Full code
[2024-12-28 17:43] LABS: Glucose 364 mg/dL (74-106)
[2024-12-28] MEDS: INSULIN ASPART 300 UNIT/3 ML PEN SUBQ ×2 (17:52→21:10)
[2024-12-28] MEDS: ACETAMINOPHEN 325 MG TABLET 650 MG PO (21:08)
[2024-12-28] MEDS: QUETIAPINE FUMARATE 100 MG TABLET 400 MG PO (21:08)
[2024-12-28] MEDS: HEPARIN SODIUM (PORCINE) 5,000 UNIT/ML VIAL 5000 UNIT SUBQ (21:08)
[2024-12-28] MEDS: PREGABALIN 75 MG CAPSULE PO (21:09)
[2024-12-28] MEDS: LEVETIRACETAM 500 MG TABLET 1000 MG PO (21:09)
[2024-12-28] MEDS: METOPROLOL SUCCINATE 50 MG TAB.ER.24H PO (21:09)
[2024-12-28] MEDS: INSULIN GLARGINE 300 UNIT/3 ML INSULN.PEN 20 UNIT SQ (21:09)
[2024-12-28] MEDS: OXYCODONE HCL/ACETAMINOPHEN 5MG/325MG 1 TAB PO (21:13)
[2024-12-29] VITALS (16 sets, daily range): BP systolic 103–147; BP diastolic 68–97; PULSE 74–96; TEMP 36.6–37.2; O2SAT 83–94
[2024-12-29] MEDS: OXYCODONE HCL/ACETAMINOPHEN 5MG/325MG 1 TAB PO ×2 (03:14→21:22)
[2024-12-29] MEDS: HEPARIN SODIUM (PORCINE) 5,000 UNIT/ML VIAL 5000 UNIT SUBQ (03:15)
[2024-12-29 05:46] LABS: Hematocrit 32.2 % (36.0-48.0); Hemoglobin 10.9 g/dL (12.0-16.0); Mean Corpuscular HGB Conc 33.9 g/dL (29.9-35.2); Mean Corpuscular Hemoglobin 30.4 pg (26.7-34.0); Mean Corpuscular Volume 89.7 fL (81.0-99.0); Platelet Count 259 10^3/uL (150-450); Red Blood Count 3.59 10^6/uL (4.20-5.40); White Blood Count 9.4 10^3/uL (4.0-11.0)
[2024-12-29 06:05] LABS: Anion Gap 14.4; Blood Urea Nitrogen 35.0 mg/dL (7.0-18.0); Calcium 8.4 mg/dL (8.5-10.1); Carbon Dioxide 26.7 mmol/L (21.0-32.0); Chloride 101 mmol/L (98-107); Cholesterol 187 mg/dL (<=200); Estimated GFR (African America 37 (>=60 mL/min/1.73m^2); Estimated GFR (Non-African Ame 30 (>=60 mL/min/1.73m^2); Glucose 321 mg/dL (74-106); HDL Cholesterol 52 mg/dL (40-60); Magnesium 1.7 mg/dL (1.8-2.4); Potassium 4.1 mmol/L (3.5-5.1); Sodium 138 mmol/L (136-145); Triglycerides 222 mg/dL (<=150); VLDL CHOLESTEROL 44.4 mg/dL
--- NOTE | 2024-12-29 09:15 | CM.NOTE ---
Rounds made with Dr. Kruger, pt will have repeat CT head today and teleneuro to follow for further recommendations. PT and OT will evaluate pt for discharge recommendations.
[2024-12-29] MEDS: INSULIN ASPART 300 UNIT/3 ML PEN SUBQ ×2 (09:30→21:25)
[2024-12-29] MEDS: INSULIN GLARGINE 300 UNIT/3 ML INSULN.PEN 45 UNIT SQ (09:31)
[2024-12-29] MEDS: LEVETIRACETAM 500 MG TABLET 1000 MG PO ×2 (09:32→21:22)
[2024-12-29] MEDS: PANTOPRAZOLE SODIUM 40 MG TABLET.DR PO (09:32)
[2024-12-29] MEDS: MAGNESIUM SULFATE IN WATER 4 GM/100 ML PIGGYBACK IV (09:32)
[2024-12-29] MEDS: CITALOPRAM HYDROBROMIDE 20 MG TABLET 40 MG PO (09:32)
[2024-12-29] MEDS: ASPIRIN 81 MG TABLET.DR PO (09:32)
--- NOTE | 2024-12-29 11:02 | SWNOTE1 ---
SW and I stopped in pt's room to discuss d/c needs. Pt was eating breakfast. She lives at home with her daughter. She uses a cane to ambulate. I asked pt if she has home health coming in and she voiced no. I did mention that PT/OT recommends SNF for pt at this time, she voiced she will do whatever makes her daughter happy. Pt voiced she has been to [facility] in the past, but she would like to stay in [place] if she goes anywhere. SW did explain that there are 2 facilities in [place] but only 1 takes her insurance, [facility]. Pt voiced she does not want [facility]. Pt did attempt to call her daughter for us all to discuss rehab but she did not answer. SW let pt know we can come back to discuss after huddle and see doctor's plan for her. Pt was agreeable.
[2024-12-29] MEDS: INSULIN ASPART 300 UNIT/3 ML PEN 15 UNIT SUBQ (11:31)
--- NOTE | 2024-12-29 11:32 | CT_ITS ---
The [address] [address] Patient Name: ADDIE SANDERS MRN: [id number] date: 1975 Sex: F Assigned Patient Location: [place] Current Patient Location: [place] Accession/Order Number: [id number] Exam Date: 12/29/2024 11:56 Report Date: 12/29/2024 11:59 At the request of: LEIA PARKER DO Procedure: CT head/brain wo con CT BRAIN WITHOUT CONTRAST: CLINICAL HISTORY: stroke f/u . Confusion today. COMPARISON: 12/28/2024 TECHNIQUE: Contiguous axial unenhanced images were obtained through the brain. This CT exam was performed using one or more following dose reduction techniques: Automated exposure control, adjustment of the mA and/or kV according to patient size, or use of iterative reconstruction technique. FINDINGS: There is frontal atrophy. The ventricles are normal in size and position. There are no developing areas of abnormal attenuation. There is no hemorrhage, mass effect or extra-axial collections. The imaged paranasal sinuses and mastoid air cells are clear. CT/CT head/brain wo con IMPRESSION: NO ACUTE INTRACRANIAL ABNORMALITY. Impression dictated by: Hayde Byrne M.D. 12/29/2024 11:59 AM Dictation Location[email or web address] Electronically authenticated by: [id number] Y Date: 12/29/2024 11:59
--- NOTE | 2024-12-29 12:29 | P.PN_ITS ---
Progress Note: Subjective Subjective Interval history: Seen and evaluated this morning, patient is currently sitting up, she is awake. She says overall she feels like shit she is still significantly weak on the left side in her upper and lower extremities. No changes with this. She did see therapy this morning. Exam Narrative Exam Narrative: General: Awake and alert, no acute distress HEENT: Normocephalic, atraumatic, no scleral icterus noted Lungs: Clear to auscultation bilaterally Cardiac: Regular rate and rhythm, no murmurs appreciated GI: Soft, nontender, regular bowel sounds. Extremities: Her left side is essentially flaccid, she is not able to flex her left arm forward, when I place it out in front of her with the hand opposed, it falls immediately to her abdomen. She is unable to do a straight leg raise or remove her left foot and plantar dorsiflexion. She reports no sensation in the left foot. I did use my pin and push quite hard on her left foot with no response to pain. Neuro: Cranial nerves II through XII intact, no focal deficits noted Skin: No rashes or lesions, no signs of jaundice Constitutional Vital Signs, click to edit/add: Last Vital Signs Temp 98.9 F 12/29/24 09:59 Pulse 82 12/29/24 12:06 Resp 14 12/29/24 09:59 BP 103/72 12/29/24 09:59 Pulse Ox 91 L 12/29/24 09:59 O2 Del Method Room Air 12/29/24 09:59 Progress Note: Objective Labs Labs: Short CBC 12/28/24 12/29/24 Range/Units 13:40 05:22 WBC 9.7 9.4 (4.0-11.0) 10^3/uL Hgb 12.4 10.9 L (12.0-16.0) g/dL Hct 35.0 L 32.2 L (36.0-48.0) % Plt Count 263 259 (150-450) 10^3/uL BMP 12/28/24 12/28/24 12/29/24 13:40 17:22 05:22 Sodium 134 L 138 Potassium 3.8 4.1 Chloride 97 L 101 Carbon Dioxide 22.9 26.7 BUN 31.0 H 35.0 H Creatinine 1.78 H 1.80 H Glucose 246 H 364 H 321 H Calcium 9.2 8.4 L Urine 12/28/24 Range/Units 13:44 Urine Color Lt. yellow (YELLOW) Urine Clarity Clear (CLEAR) Urine pH 6.0 (5.0-9.0) Ur Specific [place] 1.015 (1.005-1.025) Urine Protein 30 A (NEG/TRACE) mg/dL Urine Glucose (UA) >=1000 A (NEGATIVE) mg/dL Progress Note: A&P Assessment and Plan (1) Acute CVA (cerebrovascular accident): Assessment and Plan: ? She is unable to have the CTA secondary to IV contrast allergy, unable to have MRI secondary to her pacemaker ? Neurology consulted ? Continue aspirin and Plavix as ordered ? Patient went for repeat CT head without contrast today to trend her CT scans, this is recommended by total stroke yesterday on admission ? Her A1c is significantly elevated at 13.4, her LDL is appropriate ?She had statin therapy ? PT OT (2) Hyperglycemia: Assessment and Plan: ? Increased her insulin to glargine 45 units nightly and aspart 15 units ACHS with sliding scale (3) Generalized seizure: Assessment and Plan: ? Continue her medications as ordered (4) Uncontrolled diabetes mellitus: Assessment and Plan: See above, her A1c is trending up over time (5) CKD (chronic kidney disease): Assessment and Plan: Stable and Plan ? DVT prophylaxis addressed ? Diabetic diet ? Full code Urinary Catheter Management Urinary Catheter Management Straight: Cath placed during this visit: yes Urethral indwelling: No Insertion date: 12/28/24 Insertion time: 13:51
--- NOTE | 2024-12-29 13:35 | SWNOTE1 ---
SW stopped in and spoke with pt and daughter in regards to discharge planning. Pt's daughter and friend in room. They are all in agreement with pt going to rehab to get stronger. They would like her to go to [facility] or [facility]. First choice is [facility]. RACQUEL explained that pt is a precert and we will call and see if they have an opening. Pt voiced she wants a private room. Pt's daughter also inquired about healthcare POA. RACQUEL offered to complete with pt. Pt in agreement. SW to come back after sending referral to complete. Referral sent to [facility]. Referral included face sheet, ED note, H&P, provider notes, case management report, nursing notes, diagnostic imaging, med list, and PT/OT notes.
--- NOTE | 2024-12-29 14:08 | SWNOTE1 ---
SW attempted to complete HCPOA with pt while family in room. Pt was falling asleep. SW offered to complete tomorrow or later. Pt in agreement and voiced she feels ill right now and felt like she was going to puke. SW provided a bag to pt's friend. SW notifired nurse.
--- NOTE | 2024-12-29 15:00 | SWNOTE1 ---
RACQUEL received an email from Ermelinda at [facility] and they are able to accept pt. They did ask when pt would be discharge ready? SW advised that pt may be ready possibly tomorrow. SW asked if they can start precert today. Waiting to hear back.
--- NOTE | 2024-12-29 15:28 | SWNOTE1 ---
RACQUEL completed PASR and sent results to Georgie at [facility]. They will start precert.
--- NOTE | 2024-12-29 15:31 | CA_ITS ---
Patient Name: ADDIE SANDERS MR#: [id number] : 1975 Exam Date: 12/29/2024 Ordering Doctor: LEIA PARKER ECHOCARDIOGRAM REPORT PROCEDURE: CA ECHO DOPPLER COMPLETE INDICATIONS: neuro symptoms, h/o CVA, pacemaker, smoker, opiod abuse COMPARISON: None. DESCRIPTION: COMPLETE ECHOCARDIOGRAM Real-time transthoracic echocardiography with 2D, M-mode, spectral and color flow Doppler performed. QUALITY: Technically difficult to obtain apical images. LEFT VENTRICLE: Normal chamber size. Mild concentric left ventricular hypertrophy. Normal left ventricular stock function without wall motion abnormalities, ejection fraction 65- 70% LV EF: Normal left ventricular ejection fraction, (>55%). DIASTOLIC: Unable to evaluate diastolic function ATRIAL SEPTUM: Appears intact LEFT ATRIUM: Normal chamber size. RIGHT ATRIUM: Not well-visualized RIGHT VENTRICLE: Right ventricle size and systolic function appear normal on subcostal views pacer wire present. TRICUSPID VALVE: Normal mobility and thickness. No stenosis with no regurgitation. Could not evaluate RVSP due to lack of measurable TR signal MITRAL VALVE: Normal mobility and thickness. No evidence of mitral valve stenosis. There is no mitral annular calcification. No mitral regurgitation. AORTIC VALVE: Normal trileaflet appearance. No visible sclerosis. Normal leaflet mobility. No evidence of aortic valve stenosis. No aortic regurgitation. AORTIC ROOT: Normal diameter and appearance. PULMONIC VALVE: Appears normal. No stenosis. No regurgitation. PERICARDIUM: No evidence of pericardial effusion. Anterior free space most likely fatty pad IVC: Not well visualized. PLEURA: CONCLUSION: Technically difficult study, could not obtain apical views Mild concentric left ventricle hypertrophy Normal left ventricular systolic function without wall motion abnormalities, ejection fraction 65 to 70% Normal right ventricle size and systolic function Pacemaker wire noted in the right ventricle No significant valvular abnormalities Adult Echocardiography Procedure Report Left Ventricle LVEDD (3.7 - 5.6 cm): 4.05 cm LVESD (2.2 - 4.0 cm): 2.40 cm LVIVS thickness (0.6 - 1.2 cm): 1.24 cm LVPW thickness (0.5 - 1.0 cm): 1.09 cm e': E - e': LVOT Max Gradient: 1.68 mm[Hg] LVOT Area (cm2): 0.65 m/s Peak Velocity (LVOT): 0.65 m/s Mean Velocity (LVOT): LVOT Diameter 2.06 cm Left Ventricular Ejection Fraction: Left Atrium LA Volume Index (2D A2C): Left Atrium Systolic Dimension: 3.26 cm Mitral Valve MV E to A Ratio: 0.67 MV Max Gradient: MV Mean Gradient: Mitral Valve A-Wave Peak Velocity: 0.59 m/s Mitral Valve E-Wave Peak Velocity: 0.39 m/s Cardiovascular Orifice Area: Right Ventricle RV Internal Diastolic Dimension: Aorta AO Root Diam: 2.85 cm Ascending Ao Diam: Aortic Valve AoV Area (Peak Fernando): 2.27 cm2, 2.27 cm2 AoV Area (VTI): Deceleration Craig: Pressure Half-Time: Peak Velocity(Antegrade Flow): 0.95 m/s Peak Gradient(Antegrade Flow): 3.62 mm[Hg] Mean Velocity(Antegrade Flow): Mean Gradient(Antegrade Flow): Velocity Time Integral: Tricuspid Valve Peak Velocity (Regurgitant Flow): Peak Velocity: Pulmonic Valve Mean Gradient: Mean Velocity: Peak Velocity: Peak Gradient: 5.48 mm[Hg], 6.15 mm[Hg] Right Atrium Right Atrium Systolic Pressure: Dictated by: Patria Ontiveros MD on 12/29/2024 at 17:57 Approved by: Patria Ontiveros MD on 12/29/2024 at 18:05
[2024-12-29] MEDS: ATORVASTATIN CALCIUM 40 MG TABLET PO (21:22)
[2024-12-29] MEDS: PREGABALIN 75 MG CAPSULE PO (21:22)
[2024-12-29] MEDS: CLOPIDOGREL BISULFATE 75 MG TABLET PO (21:22)
[2024-12-29] MEDS: QUETIAPINE FUMARATE 100 MG TABLET 400 MG PO (21:23)
[2024-12-29] MEDS: INSULIN GLARGINE 300 UNIT/3 ML INSULN.PEN 20 UNIT SQ (21:27)
[2024-12-30] VITALS (10 sets, daily range): BP systolic 108–150; BP diastolic 73–88; PULSE 74–102; TEMP 36.1–36.8; O2SAT 91–94
[2024-12-30 06:02] LABS: Anion Gap 13.1; Blood Urea Nitrogen 33.0 mg/dL (7.0-18.0); Calcium 8.8 mg/dL (8.5-10.1); Carbon Dioxide 25.8 mmol/L (21.0-32.0); Chloride 102 mmol/L (98-107); Estimated GFR (African America 41 (>=60 mL/min/1.73m^2); Estimated GFR (Non-African Ame 34 (>=60 mL/min/1.73m^2); Glucose 254 mg/dL (74-106); Magnesium 2.5 mg/dL (1.8-2.4); Potassium 3.9 mmol/L (3.5-5.1); Sodium 137 mmol/L (136-145)
[2024-12-30] MEDS: CLOPIDOGREL BISULFATE 75 MG TABLET PO (08:00)
[2024-12-30] MEDS: PANTOPRAZOLE SODIUM 40 MG TABLET.DR PO (08:00)
[2024-12-30] MEDS: PREGABALIN 75 MG CAPSULE PO (08:00)
[2024-12-30] MEDS: ASPIRIN 81 MG TABLET.DR PO (08:00)
[2024-12-30] MEDS: CITALOPRAM HYDROBROMIDE 20 MG TABLET 40 MG PO (08:01)
[2024-12-30] MEDS: LEVETIRACETAM 500 MG TABLET 1000 MG PO (08:01)
[2024-12-30] MEDS: METOPROLOL SUCCINATE 50 MG TAB.ER.24H PO (08:01)
[2024-12-30] MEDS: INSULIN ASPART 300 UNIT/3 ML PEN 15 UNIT SUBQ (08:02)
[2024-12-30] MEDS: INSULIN ASPART 300 UNIT/3 ML PEN SUBQ (08:02)
[2024-12-30] MEDS: INSULIN GLARGINE 300 UNIT/3 ML INSULN.PEN 45 UNIT SQ (08:04)
[2024-12-30] MEDS: OXYCODONE HCL/ACETAMINOPHEN 5MG/325MG 1 TAB PO (08:52)
--- NOTE | 2024-12-30 09:00 | CM.NOTE ---
Rounds made with Dr. Kruger, pt will discharge to skilled facility today. Pt will have f/u scheduled with neurology.
--- NOTE | 2024-12-30 10:04 | SWNOTE1 ---
RACQUEL received an email from Ermelinda at [facility] that pt is approved to go there skilled. RACQUEL let case management and nurse know. SW stopped back in pt's room to complete HCPOA. Pt was awake and alert and oriented. Pt put her daughter as her HCPOA and her daughter in law as an alternate agent. RACQUEL made a copy for pt and gave pt the booklet and a copy. RACQUEL also faxed copy to [facility] and placed copy in chart.
--- NOTE | 2024-12-30 10:38 | SWNOTE1 ---
SW received message from nursing and pt would like to go by stretcher due to pain. RACQUEL called and set up [facility] for 12:30. SW notified nurse, patient, [facility]. RACQUEL did fax over co med rec, diagnostic imaging, nursing notes, and vitals. Pt is going to go to [facility] skilled.
--- NOTE | 2024-12-30 10:39 | SWNOTE1 ---
SW took packet to the floor along with CRF for nurse.
--- NOTE | 2024-12-30 10:51 | SWNOTE1 ---
SW called pt's daughter and left message to update her [facility]
--- NOTE | 2024-12-30 11:23 | PM.DS1 ---
DS: Providers Provider Date of admission: 12/28/24 15:58 Primary care physician: Non-Staff Physician, Consults: 12/28/24 14:04 Consult to Telestroke Routine Reason for consultation: Left-sided weakness 12/28/24 15:35 Occupational Therapy Eval and Treat Routine Reason for consultation: evaluation and treat Physical Therapy Eval and Treat Routine Reason for consultation: evaluation and treat Discharging clinician: LEIA PARKER DS: Diagnosis Discharge Diagnosis (1) Acute CVA (cerebrovascular accident): (2) Hyperglycemia: (3) Generalized seizure: (4) Uncontrolled diabetes mellitus: (5) CKD (chronic kidney disease): DS: Summary Hospital Course Hospital Course: Miss Jean Baptiste is a 49-year-old female who was admitted the hospital the afternoon of December 28 with chief complaint of left-sided paralysis. She has a history of prior strokes, emergency room and a CT head without contrast was performed which was negative for any acute intracranial malady, unfortunately were unable to do CTA due to his severe allergy to IV dye, MRI was unable to be obtained due to her pacemaker. Given the severity of her left-sided weakness, this did include her left upper and lower extremity which were essentially limp, it was assumed to have a true ischemic event without evidence of imaging. Neurology was contacted from emergency room recommended continuing her aspirin and she was loaded with a loading dose of Plavix therapy followed by daily therapy. Telehealth neurology was consulted in the hospital, the remainder of her stroke workup was negative. She was seen by PT and OT who recommended SNF. Throughout her hospitalization her left upper extremity did regain some strength, she was able to give me thumbs up the day of discharge as well as move her index finger to the touch her thumb tip however her leg remained flaccid. Straight leg raise was unable to be done, she was not able to move her foot at all, she had no reaction to painful stimuli either. Her cholesterol panel was within normal limits, she was started on atorvastatin, her diabetes remained uncontrolled at her admission. Her A1c was 13 which is elevated from our last check, her blood sugar was elevated throughout the hospitalization despite increasing her insulin therapy. It was noted that her family visited her and was giving her food and she does request snacks often. I did have a discussion with her regarding her blood sugar going forward and that if she does not get her diabetes under control she will be at high risk and likely will have further ischemic events in the future. She was discharged the afternoon of December 30 to a detention facility. Time Spent with Patient Time attestation: Total time spent providing and/or coordinating discharge services: Exam Narrative Exam Narrative: General: Awake and alert, no acute distress, she is pleasant today HEENT: Normocephalic, atraumatic, no scleral icterus noted Lungs: Clear to auscultation bilaterally Cardiac: Regular rate and rhythm, no murmurs appreciated GI: Soft, nontender, obese, regular bowel sounds. Extremities: Active and passive range of motion in her right upper and lower extremities were normal. Her left upper extremity, she is able to give a thumbs up, she can touch her fingertips together, she can cross over her index and middle finger. She can flex her right arm forward a little bit which is a big improvement from the day prior and from admission. Her left lower extremity however it remains flaccid and unresponsive to painful stimuli. Neuro: Cranial nerves II through XII intact, no focal deficits noted Skin: No rashes or lesions, no signs of jaundice Constitutional Vital Signs, click to edit/add: Last Vital Signs Temp 97.8 F 12/30/24 07:42 Pulse 84 12/30/24 10:00 Resp 16 12/30/24 07:42 BP 150/82 H 12/30/24 07:42 Pulse Ox 93 L 12/30/24 07:42 O2 Del Method Room Air 12/30/24 07:42 DS: Data Data Completed and Pending Labs on day of discharge: Labs from last 24 hours 12/30/24 12/29/24 12/29/24 05:13 21:23 16:11 Sodium 137 Potassium 3.9 Chloride 102 Carbon Dioxide 25.8 Anion Gap 13.1 BUN 33.0 H Creatinine 1.62 H Est GFR ( Amer) 41 L Est GFR (Non-Af Amer) 34 L BUN/Creatinine Ratio 20.4 Glucose 254 H Calcium 8.8 Magnesium 2.5 H POC Glucose 266 H 108 H 12/29/24 11:30 Sodium Potassium Chloride Carbon Dioxide Anion Gap BUN Creatinine Est GFR ( Amer) Est GFR (Non-Af Amer) BUN/Creatinine Ratio Glucose Calcium Magnesium POC Glucose 254 H Preliminary micro results at discharge 12/28/24 13:44 Urine Culture - Preliminary Urine,Clean Catch Pending - Specimen sent to [facility] Discharge Plan Discharge Disposition: Xfer SNF Condition: Fair Discharge Medications: New atorvastatin 40 mg Tablet 40 mg PO QHS 90 Days Qty: 90 0RF clopidogrel 75 mg Tablet 75 mg PO QD 21 Days Qty: 21 0RF insulin aspart U-100 [Novolog FlexPen U-100 Insulin] 100 unit/mL (3 mL) Insulin Pen 3 - 15 unit subcut ACHS 90 Days Qty: 15 0RF insulin aspart U-100 [Novolog FlexPen U-100 Insulin] 100 unit/mL (3 mL) Insulin Pen 15 unit subcut ACHS 90 Days Qty: 54 0RF insulin glargine [Lantus Solostar U-100 Insulin] 100 unit/mL (3 mL) Insulin Pen 45 unit subcut BEDTIME 90 Days Qty: 15 0RF Continued citalopram 40 mg tablet 40 mg PO DAILY tizanidine 4 mg tablet 8 mg PO BEDTIME metoprolol succinate 50 mg tablet extended release 24 hr 50 mg PO DAILY pantoprazole 40 mg tablet,delayed release (DR/EC) 40 mg PO DAILY pregabalin 75 mg capsule 75 mg PO Q12H levetiracetam 1,000 mg tablet 1,000 mg PO Q12H paliperidone 9 mg tablet extended release 24hr 9 mg PO Q24H (DME) Dexcom G6 Sensor Device MISCELLANEOUS (DME) Omnipod 5 G6-G7 Pods (Gen 5) Cartridge SUBCUT hydroxyzine pamoate 100 mg capsule 100 mg PO BEDTIME (DME) pen needle, diabetic [Denise 2nd Gen Pen Needle] 32 gauge x 5/32 needle MISCELLANEOUS oxycodone-acetaminophen 5-325 mg tablet 1 tab PO Q8H PRN (Reason: pain) 3 Days Qty: 15 0RF albuterol sulfate [Ventolin HFA] 90 mcg/actuation HFA aerosol inhaler 1 puff INHALATION Q4H PRN (Reason: shortness of breath or wheezing) chlorthalidone 25 mg tablet 25 mg PO .daily aspirin 81 mg tablet,delayed release (DR/EC) 81 mg PO .daily lisinopril 40 mg tablet 40 mg PO .daily levothyroxine 75 mcg tablet 75 mcg PO .ACB loratadine 10 mg tablet 10 mg PO .QD nortriptyline 25 mg capsule 25 mg PO .QHS Changed quetiapine 400 mg tablet 400 mg PO .daily Qty: 0 0RF Discontinued insulin glargine [Lantus U-100 Insulin] 100 unit/mL solution 20 unit SUBCUT .QHS insulin lispro 100 unit/mL insulin pen 1 sliding scale dose SUBCUT ACHS 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 Forms: Portal Instructions
--- NOTE | 2024-12-30 11:41 | SWNOTE1 ---
RACQUEL sent dc summary to [facility].
--- NOTE | 2025-01-02 10:53 | PC.NURSE ---
02/06 @ 1pm with [facility] [address], [place] [phone]
== END 2024-12-30 12:46 | DRG 45 ==
LOC: ER 15:26 → MS 16:02
PROVIDERS: Admitting Provider Internal Medicine; Emergency Provider Emergency Medicine; Visit Provider Internal Medicine
DX: I63.9 Cerebral infarction, unspecified (principal); G81.04 Flaccid hemiplegia affecting left nondominant side; F17.200 Nicotine dependence, unspecified, uncomplicated; R29.709 NIHSS score 9; Z95.0 Presence of cardiac pacemaker; Z79.02 Long term (current) use of 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/antiplatelets; R56.9 Unspecified convulsions; E11.22 Type 2 diabetes mellitus with diabetic chronic kidney disease; N18.9 Chronic kidney disease, unspecified; Z79.82 Long term (current) use of aspirin; Z79.890 Hormone replacement therapy; Z79.899 Other long term (current) drug therapy; Z79.4 Long term (current) use of insulin; Z91.041 Radiographic dye allergy status; E11.65 Type 2 diabetes mellitus with hyperglycemia
CPT/HCPCS: 36415; 36591; 70450; 71045; 80048; 80061; 80307; 80320; 80329; 81001; 82947; 82948; 83036; 83735; 85025; 85027; 85610; 85730; 87086; 93005; 93306; 93880; 97161; 97165; 97530; 97535; 99285; J1644; J2405; J3475

== ENCOUNTER 2024-12-31 17:18 | Observation (INO) | payer OTHER, SELFPAY ==
--- OUTSIDE RECORDS SUMMARY | 2011-09-05 05:00 | XMS_ITS | Continuity of Care Document ---
Author Organization [facility] Address [address] [place] [address] Phone Care Team Providers Care Farm Tractor Operator Name Role Phone Liberty STEVENS, Mario Unavailable Unavailab le Medications Medication Instructions Dosage Effective Dates (start - stop) Status Comments Diflucan 150 mg Tab take 1 tablet (150MG ) by oral route once - Active nystatin-triamcinolon e 100,000 unit/gram-0.1 % Ointment apply by TOPICAL route 2 times every day to the affected area(s) - Active Procedures Procedure Date Offic/outpt E&m [place] [address] 2 Offic/outpt E&m [facility] 45 2 Advance Directives Directive Yes [...] Providers Copied on Encounter Offic/outpt E&m [facility] 45 [facility], [address], [place], [place], [address], tel:[phone] [facility] abnormal pap smear (chief complaint) CandidiasisDiab etes Mellitus Type 2, UncomplicatedOb esity, Morbid 2 Liberty Martin. [address] [place] [address], [place], [place], [address], [place]. tel:[phone] Family History Family Member Type Diagnosis Age At Onset Father Problem (finding) hypertension Father Problem (finding) diabetes melli tus in first degree relative Payers Payer name Insurance type Covered green party ID Authoringrid meza(s) Mike [id number] Social History Type Description Quantity Date Captured Comments Alcohol Use Details No Caffeine Use Details Tobacco Use Status No Information Smoking Status Never smoker Non-Smoking Tobacco Use Details : No Details Available : No Details Available Sex Female Vital Signs Date / Time: Height Weight [...]
--- OUTSIDE RECORDS SUMMARY | 2014-02-20 05:10 | XMS_ITS | Continuity of Care Document ---
Author Organization [facility] Address [address] [place] [address] Phone Care Team Providers Care Nascar Pit Crew Person Name Role Phone Fina STEVENS, Sandra Unavailable Unavailable Allergies, Adverse Reactions, Alerts Substance Reaction Status Criticality tramadol itching Active No Information PROPOXYPHENE NAPSYLATE sick to stomach Active No Information acetaminophen sick to stomach Active No Informat ion KETOROLAC TROMETHAMINE seizures Active No In formation codeine itching Active No Information Medications Medication Instructions Dosage Effective Dates (start - stop) Status Comments Humalog KwikPen 100 unit/mL subcutaneous inject by subcutaneous route as per insulin sliding scale protocol - Active Lantus Solostar 100 unit/mL (3 mL) subcutaneous insulin pen inject 55 units BID - Active methadone 5 mg tablet TID - Active nortriptyline 25 mg capsule 2 daily - Active aspirin 81 mg tablet,delayed release take 1 (81MG) by oral route every day - Active gabapentin 100 mg capsule take 1 (100MG) by oral route 3 times every day - Active gabapentin 800 mg tablet take 1 tablet b y oral route 3 times every day - Active hydrochlorothiazide 12.5 mg tablet take 1 tablet by oral route every day 12.5 MG - Active Symbicort 160 mcg-4.5 mcg/actuation HFA aerosol inhaler inhale 1 by inhalation route once in the morning and evening - Active Keppra 500 mg tablet 2 in the am/3 in the pm - Active lisinopril 20 mg tablet take 1 tablet by oral route every day - Active Bentyl 20 mg tablet take 1 tablet by oral route every day - Active Zanaflex 4 mg tablet take 1 tablet by oral route 3 times every bedtime - Active metoprolol succinate ER 25 mg tablet,extended release 24 hr take 1 tablet by oral route 2 times every day - Active metformin 500 mg tablet take 1 tablet by oral route 2 times every day with morning and evening meals 500 MG - Active Prozac 40 mg capsule take 1 capsule by oral route every day in the morning - Active Prilosec 40 mg capsule,delayed release take 1 capsule by oral route 2 times every day before a meal - Active Ambien 10 mg tablet take 1 tablet by oral route every day at bedtime 10 MG - Active Humalog 100 unit/mL subcutaneous solution inject by subcutaneous route as per insulin sliding scale protocol - No Longer Active Lantus 100 unit/mL subcutaneous solution 55 units BID - No Longer Active Procedures Procedure Date OCT New Patient, Moderate Ext Ophthalmoscopy, Initial Ext Ophthalmoscopy, Initial Advance Directives Directive Yes / No Effective Date File Name No Information Encounters Encounter Description Practice Location Reason(s) For Visit Diagnoses Date Provider Providers Copied on Encounter New Patient, Moderate [facility] , [address] [place], [address], [place] tel:[phone] [facility] Di referred by Dr. Dunn for a possible PVD (chief complaint) double vision (chief complaint) Blood pressure reading (chief complaint) DiplopiaDiabetes mellitus type 2Vitreous degenerationDry eye syndromeSecondary pigmentary degeneration of retinaSenile nuclear sclerosis 4 Orgel Sandra. [address], [address], [place], [place], [id number] , [place]. tel:[phone] Specialist : Sergio Resendez, [address], [place], [address]. tel:[phone] erring Provider: Yoseph Dunn, [address] , [place], [address]. tel:[phone] Family History Family Member Type Diagnosis Age At Onset Problem (finding) Family history of Blindness due to Diabetes-cousin Problem (finding) Family history of hyper tension Problem (finding) Family history of Heart Disease-Father Problem (finding) Family history of Diabe rodríguez mellitus Problem (finding) Family history of catar act Problem (finding) Family history of glauc margaret Payers Payer name Insurance type Covered constitution party ID Authoriza tion(s) No Information Social History Type Description Quantity Date Captured Comments Alcohol Use Details No Caffeine Use Details No Tobacco Use Status Heavy cigarette smok er (20-39 cigs/day) Smoking Status Current every day smoker Non-Smoking Tobacco Use Details : No [...] from a retinal standpoint and with the PCP/Customer Experience Intern. Related to Diabetes mellitus type 2 - [...]
--- OUTSIDE RECORDS SUMMARY | 2021-02-19 10:18 | XMS_ITS | Continuity of Care Document ---
Author Organization [facility] Address [address] [place] [address] Phone Care Team Providers Care Visual Merchandising Coordinator Name Role Phone George Arce Unavailable Unavailable Procedures Procedure Date Pfizer COVID Vaccine Admin Dose 1 COVID-19 Pfizer Pfizer COVID Vaccine Admin Dose 1 COVID-19 Pfizer Advance Directives Directive Yes / No Effective Date File Name No Information Encounters Encounter Description Practice Location Reason(s) For Visit Diagnoses Date Provider Providers Copied on Encounter [facility], [address] [place], [place], [id number], tel:[phone] [facility] No Information Eloy Diaz. [address] [place], [place], [id number], [place]. tel:[phone] [facility], [address] [place], [place], [id number], tel:[phone] [facility] Encounter for immunization Eloy DUMONT George. [address] [place], [place], [id number], [place]. tel:[phone] Family History Family Member Type Diagnosis Age At Onset No Information Immunizations Vaccine Date Status Comments Pfizer COVID administered Source: [facility] unization Record Payers Payer name Insurance [...]
--- OUTSIDE RECORDS SUMMARY | 2023-10-21 12:26 | XMS_ITS | Continuity of Care Document ---
Author Organization [facility] Address [address] [place] [address] Phone Care Team Providers Care Rod Finisher Name Role Phone Omar Brenda HENDERSON Unavailable Unavailable Allergies, Adverse Reactions, Alerts Substance [...] 40 MG - Active FreeStyle Zeinab 2 [place] Check BS twice per day - Active [...] times every day 200 MG - Active Procedures Procedure Date OFFICE/OUTPATIENT VISIT, EST NO CHARGE - PATIENT NOT SEEN OR LEFT Mar OFFICE/OUTPATIENT VISIT, NEW Advance Directives Directive Yes / No Effective Date File Name No Information Encounters Encounter Description Practice Location Reason(s) For Visit Diagnoses Date Provider Providers Copied on Encounter [facility], [address] [place] [address], [id number], [place] tel:[phone] [facility] No Information 4 Omar Gutierrez. [address] [place] [address], [id number], [place]. tel:[phone] [place] [address], [address] [place] [address], [address], [place] tel:[phone] [facility] No Information 3 [facility] Enrique. [address] [place] [address], [id number], [place]. tel:[phone] [place] [address], [address] [place] [address], [address], [place] tel:[phone] [facility] No Information 3 [facility] Enrique. [address] [place] [address], [id number], [place]. tel:[phone] [place] [address], [address] [place] [address], [address], [place] tel:[phone] [facility] No Information 3 [facility] Enrique. [address] [place] [address], [id number], [place]. tel:[phone] OFFICE/OUTPA TIENT VISIT, [facility], [address] [place] [address], [address], [place] tel:[phone] [facility] Diabetes (chief complaint) Type 2 diabetes mellitus with hyperglycemiaUrg e incontinenceBipo lar disorder, unspecifiedAnxie ty disorder, unspecifiedEssen tial (primary) hypertensionSOBH ypothyroidismIns omniaGastropares isGeneralized idiopathic epilepsy and epileptic syndromes, not intractable, with status epilepticus 3 [facility] Enrique. [address] [place] [address], [id number], [place]. tel:[phone] Referring Provider: Enrique Hebert, [address] [place] [address], [id number] . tel:[phone] [facility], [address] [place] [address], [facility], [place] tel:[phone] [facility] No Information 3 [facility] Enrique. [address] [place] [address], [id number], [place]. tel:[phone] Referring Provider: Enrique Hebert, [address] [place] [address], [id number] . tel:[phone] OFFICE/OUTPA TIENT VISIT, [facility], [address] [place] [address], [address], [place] tel:[phone] [facility] Diabetes (chief complaint) Hyperlipid emia (chief complaint) Hypertensi on (chief complaint) Type 2 diabetes mellitus with hyperglycemiaEnc ounter for screening 3 [facility] Enrique. [address] [place] [address], [id number], [place]. tel:[phone] Referring Provider: Enrique Hebert, [address] [place] [address], [id number] . tel:[phone] [facility], [address] [place] [address], [address], [place] tel:[phone] [facility] Dental examination 4 [facility], [address] [place] [address], [address], [place] tel:[phone] [facility] Nonspecific (abnormal) findings on radiological and other examination of body structure; abnormal mammogram, unspecified 3 [facility], [address] [place] [address], [address], [place] tel:[phone] [facility] Diabetes mellitus without mention of complication, type II or unspecified type, uncontrolledImpe tigoUrge incontinence 3 [facility], [address] [place] [address], [address], [place] tel:[phone] [facility] Special investigations and examinations; other specified examinations; other specified preoperative examination 3 [facility], [address] [place] [address], [address], [place] tel:[phone] [facility] Other cellulitis and abscess; other specified sitesOther specified diseases of hair and hair follicles 3 [facility], [address] [place] [address], [address], [place] tel:[phone] [facility] Symptomatic states associated with artificial menopauseSwellin g, mass, or lump in head and neckDiabetes Mellitus, Type II, UncontrolledVagi nitis and vulvovaginitis, unspecified 3 [facility], [address] [place] [address], [address], [place] tel:[phone] [facility] 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; lumbar intervertebral disc without myelopathy 3 [facility], [address] [place] [address], [address], [place] tel:[phone] [facility] Epilepsy, unspecified; without mention of intractable epilepsy 3 [facility], [address] [place] [address], [address], [place] tel:[phone] [facility] Nausea with vomitingGastropa resis 3 [facility], [address] [place] [address], [address], [place] tel:[phone] [facility] Esophageal refluxLump or mass in breastSwelling, mass, or lump in head and neckAnxiety Disorder 3 [facility], [address] [place] [address], [address], [place] tel:[phone] [facility] Other forms of epilepsy and recurrent seizures; without mention of intractable epilepsyEssentia l hypertension; unspecifiedAbdom inal pain; left lower quadrantDiabetes mellitus without mention of complication, type II or unspecified type, uncontrolledNaus ea alone 3 [facility], [address] [place] [address], [address], [place] tel:[phone] [facility] Chronic pain syndromeDiabetes Mellitus, Type II, Uncontrolled 3 [facility], [address] [place] [address], [address], [place] tel:[phone] [facility] Peripheral autonomic neuropathy in disorders classified elsewherePain in joint; handFasciitis, unspecified 3 [facility], [address] [place] [address], [address], [place] tel:[phone] [facility] HeadacheDental examination 2 [facility], [address] [place] [address], [address], [place] tel:[phone] [facility] ImpetigoDiabetes Mellitus, Type II, Uncontrolled 2 [facility], [address] [place] [address], [address], [place] tel:[phone] [facility] Major depressive disorder, recurrent episode; mildOther personal history presenting hazards to health; other specified personal history presenting hazards to health; noncompliance with medical treatmentDiabete s Mellitus, Type II 2 [facility], [address] [place] [address], [address], [place] tel:[phone] [facility] Diabetes mellitus without mention of complication, type II or unspecified type, uncontrolledChes t pain; other 2 No Information [facility], [address] [place] [address], [address], [place] tel:[phone] [facility] Blood in stoolExternal hemorrhoids with other complication 2 No Information [facility], [address] [place] [address], [address], [place] tel:[phone] [facility] Diabetes Mellitus, Type II, UncontrolledEpil epsy and recurrent seizures; Grand mal status 2 No Information [facility], [address] [place] [address], [address], [place] tel:[phone] [facility] Backache, unspecifiedDiabe rodríguez Mellitus, Type IIObesityBipolar disorder, unspecifiedChron ic pain syndromeEpilepsy and recurrent seizures; Grand mal statusAbnormal loss of weight and underweight; loss of weight No Information Family History Family Member Type Diagnosis Age At Onset Mother Problem (finding) Epilepsy Father Problem (finding) diabetes Father Problem (finding) Hypertension Father Problem (finding) heart attack Payers Payer name Insurance type Covered libertarian ID Authoriza tion(s) [employer] Medicaid [place] [id number] Wrap [place] [id number] Social History Type Description Quantity Date Captured Comments Alcohol Use Details Unknown Caffeine Use Details Unknown Tobacco Use Status No Information Smoking Status No Information Sex Female Sexual Orientation Choose not to disclose Gender Identity Female Chief Complaint And Reason For Visit No Information Reason For Referral Reason For Referral No Information Plan Of Treatment Date Type Action Status Goal BMI. Due on due Goal Urine microalbumin. Due on due Goal Diabetic eye exam. Due on due Goal Pneumococcal vaccine. Due on due Goal Unhealthy drug use screening . Due on due Goal Hemoglobin A1C. Due on due Goal Tdap. Due on due Goal Lipid panel. Due on due Goal HPV. Due on due Goal Influenza 6MOS+. Due on due Goal PAP. Due on due Goal Dilated eye exam. Due on September due Goal Pap/HPV testing. Due on due Goal Tobacco screening. Due on due Goal Hepatitis C screening. Due o n due Goal Influenza vaccine. Due on due Goal Tobacco Follow-Up. Due on due Goal Depression screening. Due on due Goal Mammogram. Due on due Goal Hep B (). Due on due Goal GFR. Due on due Goal BMI Adult Follow-Up. Due on due Goal HIV screen. Due on due Goal Foot exam. Due on due Goal Depression Follow-Up. Due on due Goal Dental exam. Due on due Goal Td vaccine. Due on due Goal Eye exam. Due on due Goal ASCVD 10 year risk. Due on due Goal HPV. Due on due Goal Hep B (1st). Due on due Goal Eye exam. Due on due Goal Influenza 6MOS+. Due on due Goal Lipid panel. Due on due Goal BMI. Due on due Goal PAP. Due on due Goal Unhealthy drug use screening . Due on due Goal Pap/HPV testing. Due on due Goal Foot exam. Due on due Goal Depression screening. Due on due Goal Td vaccine. Due on due Goal Pneumococcal vaccine. Due on due Goal ASCVD 10 year risk. Due on due Goal Tdap. Due on due Goal Influenza vaccine. Due on No due Goal Dental exam. Due on due Goal Tobacco screening. Due on due Goal Diabetic eye exam. Due on due Goal Dilated eye exam. Due on Mar due Goal BMI Adult Follow-Up. Due on due Goal Mammogram. Due on due Goal GFR. Due on due Goal Depression Follow-Up. Due on due Goal Tobacco Follow-Up. Due on No due Goal Urine microalbumin. Due on due Goal ASCVD 10 year risk. Due on due Goal Depression screening. Due on due Goal Influenza 6MOS+. Due on due Goal HPV. Due on due Goal Hep B (1st). Due on due Goal Pneumococcal vaccine. Due on due Goal Diabetic eye exam. Due on due Goal Td vaccine. Due on due Goal Dental exam. Due on due Goal GFR. Due on due Goal Influenza vaccine. Due on due Goal Tdap. Due on due Goal Unhealthy drug use screening . Due on due Goal Mammogram. Due on due Goal Depression Follow-Up. Due on due Goal PAP. Due on due Goal BMI. Due on due Goal Tobacco screening. Due on due Goal Pap/HPV testing. Due on due Goal Eye exam. Due on due Goal Urine microalbumin. Due on due Goal Dilated eye exam. Due on Mar due Goal BMI Adult Follow-Up. Due on due Goal Lipid panel. Due on due Goal Tobacco Follow-Up. Due on No due Goal Foot exam. Due on due Goal BMI. Due on due Goal ASCVD 10 year risk. Due on N due Goal Eye exam. Due on due Goal Mammogram. Due on due Goal PAP. Due on due Goal BMI Adult Follow-Up. Due on due Goal Influenza vaccine. Due on No due Goal Tdap. Due on due Goal Influenza 6MOS+. Due on due Goal Dental exam. Due on due Goal Pap/HPV testing. Due on due Goal Urine microalbumin. Due on N due Goal Dilated eye exam. Due on Mar due Goal Tobacco Follow-Up. Due on No due Goal Lipid panel. Due on due Goal Unhealthy drug use screening . Due on due Goal Pneumococcal vaccine. Due on due Goal Depression screening. Due on due Goal Foot exam. Due on due Goal Td vaccine. Due on due Goal HPV. Due on due Goal Tobacco screening. Due on No due Goal GFR. Due on due Goal Depression Follow-Up. Due on due Goal Hep B (1st). Due on due Goal Diabetic eye exam. Due on No due Goal BMI Adult Follow-Up. Due on due Goal Influenza 6MOS+. Due on due Goal BMI. Due on due Goal Mammogram. Due on due Goal Dental exam. Due on due Goal Tobacco screening. Due on No due Goal Eye exam. Due on due Goal ASCVD 10 year risk. Due on N due Goal Tdap. Due on due Goal Unhealthy drug use screening . Due on due Goal Pneumococcal vaccine. Due on due Goal HPV. Due on due Goal Td vaccine. Due on due Goal Depression screening. Due on due Goal PAP. Due on due Goal Influenza vaccine. Due on No due Goal Pap/HPV testing. Due on due Goal Tobacco Follow-Up. Due on No due Goal Lipid panel. Due on due Goal Depression Follow-Up. Due on due Goal Hep B (1st). Due on due Goal Foot exam. Due on due Goal Diabetic eye exam. Due on No due Goal Dilated eye exam. Due on Mar due Goal GFR. Due on due Goal Urine microalbumin. Due on N due Goal Depression screening. Due on due Goal BMI. Due on due Goal HPV. Due on due Goal Pap/HPV testing. Due on due Goal Influenza 6MOS+. Due on due Goal Urine microalbumin. Due on N due Goal Depression Follow-Up. Due on due Goal Td vaccine. Due on 23 due Goal PAP. Due on due Goal Lipid panel. Due on 023 due Goal ASCVD 10 year risk. Due on N due Goal Tobacco Follow-Up. Due on No due Goal Eye exam. Due on due Goal Diabetic eye exam. Due on No due Goal Foot exam. Due on 3 due Goal Hep B (1st). Due on 023 due Goal Pneumococcal vaccine. Due on due Goal Influenza vaccine. Due on No due Goal Mammogram. Due on 3 due Goal Dilated eye exam. Due on Mar due Goal Dental exam. Due on 023 due Goal Tdap. Due on due Goal Tobacco screening. Due on No due Goal Unhealthy drug use screening . Due on due Goal BMI Adult Follow-Up. Due on due Goal GFR. Due on [...] eye exam. Due on No due Goal Lipid panel. Due on 023 [...] use screening . Due on due Goal Pneumococcal vaccine. Due on due Goal BMI Adult Follow-Up. Due on due Goal Tobacco Follow-Up. Due on No due Goal Eye exam. Due on due Goal Dental exam. Due on 023 due Goal Mammogram. Due on 3 due Goal Influenza 6MOS+. Due on due History Of Present Illness [...] headache, irregular heartbeat/palpitations, tinnitus and visual disturbances. Functional Status Date Functional Assessmen t No Information Instructions Date Instruction Additional Infor susan Instructions [...] hyperglycemia Assessments Type Assessment Date No Information Patient Care Teams Name Effective Dates (start - stop) Status Members No Information
--- OUTSIDE RECORDS SUMMARY | 2024-03-15 09:45 | XMS_ITS ---
Author Organization [facility] Address [address] [facility] [address] [place] [address] Care Team Providers Care Diesel Motor Mechanic Name Role Phone Enrique Hebert Primary Care Provider Unavailtheo Smith MD, [facility] Unavailable Unavailable Mario Castillo Unavailable [phone] REASON FOR VISIT C/O SEVERE BURNING WHILE WB. WALKING [place] Encounters Encounter Location Date Provider Diagnosis [facility] [address] [facility] [address] [address] 03/15/2024 Mario Castillo Plan Of Treatment Next Appt Details Provider Name:Mario rockwell, 03/14/2025 01:30:00 PM, [address] [place] [address] [place], [address], Progress Notes * CAITY SANDERSOB:1975 ( 49 yo F)Acc No.[id number]:03/15/2024 Progress Notes Patient: ADDIE ZUÑIGA Provider: Joel Castillo DPM :1975 A ge:48 Y S ex:Female Date:03/15/2024 Phone: Address:[address] [place], [place] [address] Pcp:Enrique Hebert Subjective: * Chief Complaints: * C /O SEVERE BURNING WHILE WB. WALKING ON [place] * Electronic signature of Romeo Castillo DPM on 01/04/2025 at 06:21 PM EDT Sign off status: Pending * Provider: Joel Castillo DPM Date: 1 Generated for Printi ng/Faxing/eTransmitting on: 0 01/04/2025 06:21 PM EDT
--- OUTSIDE RECORDS SUMMARY | 2024-04-20 10:15 | XMS_ITS ---
Author Organization [facility] Address [address] [facility] [address] [address] Care Team Providers Care Respite Provider Name Role Phone Enrique Hebert Primary Care Provider Unavailtheo Smith MD, [facility] Unavailable Unavailable Mario Castillo Unavailable [phone] REASON FOR VISIT STITCH REMOVAL Encounters Encounter Location Date Provider Diagnosis [facility] [address] [facility] [place] [address] 04/20/2024 Mario Castillo Plan Of Treatment Next Appt Details Provider Name:Mario rockwell, 03/14/2025 01:30:00 PM, [address] [place] [address] [address], [place], [address], Progress Notes * CAITY SANDERSOB:1975 ( 49 yo F)Acc No.[id number]:04/20/2024 Patient: ADDIE ZUÑIGA Provider: Joel Castillo DPM :1975 A ge:49 Y S ex:Female Date:04/20/2024 Phone: Address:[address] [place], [place] [address] Pcp:Enrique Hebert Subjective: * Chief Complaints: * S TITCH REMOVAL * Electronic signature of Romeo Castillo DPM on 01/04/2025 at 06:22 PM EDT Sign off status: Pending * Provider: Joel Castillo DPM Date: 06/20/2023 Generated for Printi ng/Faxing/eTransmitting on: 0 01/04/2025 06:22 PM EDT
--- OUTSIDE RECORDS SUMMARY | 2024-05-24 08:45 | XMS_ITS ---
Author Organization [facility] Address [address] [place] [address] [address] [place] [address] Care Team Providers Care Hydrogen Power Plant Engineer Name Role Phone Enrique Hebert Primary Care Provider Unavailtheo Smith MD, Bernard[place] Unavailable Unavailable Mario Castillo Unavailable [phone] Encounters Encounter Location Date Provider Diagnosis [facility] [address] [place] [address] 05/24/2024 Mario Castillo Plan Of Treatment Next Appt Details Provider Name:Mario rockwell, 03/14/2025 01:30:00 PM, [address] [place] [address] [address], [place], [address], Progress Notes * BRIDGET SANDERSYDOB:1975 ( 49 yo F)Acc No.[id number]:05/24/2024 Patient: ADDIE ZUÑIGA Provider: Joel Castillo DPM :1975 A ge:49 Y S ex:Female Date:05/24/2024 Phone: Address:[address] [place], [place] [id number] Pcp:Enrique Hebert * Electronic signature of Romeo Castillo DPM on 01/04/2025 at 06:23 PM EDT Sign off status: Pending * Provider: Joel Castillo DPM Date: Generated for Printi ng/Faxing/eTransmitting on: 0 01/04/2025 06:23 PM EDT
--- OUTSIDE RECORDS SUMMARY | 2024-08-09 07:03 | XMS_ITS ---
Author Organization [facility] [place] Address [address] [place] [address] Care Team Providers Care Bookkeeper Assistant Name Role Phone Mario Baum DO Primary Care Provider Juanjo Snow [facility] [phone] Encounters Encounter Location Date Provider Diagnosis [facility] (PODIATRY) [address] [place] [address] [place] [address] 08/09/2024 Juanjo Amaro Plan Of Treatment No Information Progress Notes * Lisa JEAN BAPTISTE JDOB:1975 (49 yo F)Acc No.[id number]:08/09/2024 Patient: Lisa ZUÑIGA :1975 A ge:49 Y S ex:Female Address:[address] [place] [address] * true * Date: Generated for Rodney cota/Ling/eTransmitting on: 0 01/04/2025 06:22 PM EDT
[2024-12-31 17:27] VITALS: BP 130/81; PULSE 74; TEMP 36.8; O2SAT 98; BMI 51.2
[2024-12-31 20:06] VITALS: BP 176/102; PULSE 80; TEMP 36.6; O2SAT 96; BMI 46.6
[2024-12-31 20:41] VITALS: O2SAT 100
[2024-12-31] MEDS: QUETIAPINE FUMARATE 100 MG TABLET 400 MG PO (22:50)
[2024-12-31] MEDS: LEVETIRACETAM 500 MG TABLET 1000 MG PO (22:50)
[2024-12-31] MEDS: ATORVASTATIN CALCIUM 40 MG TABLET PO (22:50)
[2024-12-31] MEDS: CHLORTHALIDONE 25 MG TABLET PO (22:51)
[2024-12-31] MEDS: TIZANIDINE HCL 4 MG TABLET 8 MG PO ×2 (22:51→23:02)
[2024-12-31] MEDS: HEPARIN SODIUM (PORCINE) 5,000 UNIT/ML VIAL 5000 UNIT SUBQ (22:52)
[2024-12-31] MEDS: PREGABALIN 75 MG CAPSULE PO (22:52)
[2024-12-31] MEDS: HYDROXYZINE PAMOATE 25 MG CAPSULE 100 MG PO ×2 (22:52→23:04)
[2024-12-31] MEDS: CLOPIDOGREL BISULFATE 75 MG TABLET PO (22:52)
[2024-12-31] MEDS: LISINOPRIL 20 MG TABLET 40 MG PO (22:53)
[2024-12-31] MEDS: INSULIN GLARGINE 300 UNIT/3 ML INSULN.PEN 45 UNIT SQ ×2 (22:53→23:04)
[2024-12-31] MEDS: INSULIN ASPART 300 UNIT/3 ML PEN SUBQ ×2 (22:54→23:04)
[2024-12-31] MEDS: OXYCODONE HCL/ACETAMINOPHEN 5MG/325MG 1 TAB PO (22:58)
[2024-12-31] MEDS: ASPIRIN 81 MG TABLET.DR PO (23:01)
[2025-01-01] VITALS (10 sets, daily range): BP systolic 86–127; BP diastolic 51–77; PULSE 60–88; TEMP 36.4–36.9; O2SAT 90–97
--- NOTE | 2025-01-01 00:02 | ED.MEDCLEAR1 ---
HPI - Medical Clearance General Chief complaint: Medical Clearance Stated complaint: Medical Clearance Time Seen by Provider: 12/31/24 18:55 Source: family Mode of arrival: Wheelchair Limitations: no limitations History of Present Illness HPI Narrative: Patient is a 49-year-old female presenting to the emergency department for placement to prison. Patient was recently discharged from the hospital last week after experiencing a CVA with residual left-sided weakness. She was placed at a prison last night. However, the she was unhappy with the living conditions. Her daughter picked her up and drove her back to their home, however they have been unable to take care of the patient given her severe debility. Therefore, they presented the ED for placement to a different prison. The patient is otherwise asymptomatic with no acute complaints. She has no new weakness or neurologic deficits. Related Information Home Medications ?Medication ?Instructions ?Recorded ?Confirmed albuterol sulfate 90 mcg/actuation 1 puff inhalation Q4H PRN 10/23/22 12/31/24 aerosol inhaler (Ventolin HFA) shortness of breath or wheezing aspirin 81 mg tablet,delayed 81 mg PO .daily 10/23/22 12/31/24 release chlorthalidone 25 mg tablet 25 mg PO .daily 10/23/22 12/31/24 lisinopril 40 mg tablet 40 mg PO .daily 10/23/22 12/31/24 levothyroxine 75 mcg tablet 75 mcg PO .ACB 06/25/24 12/31/24 loratadine 10 mg tablet 10 mg PO .QD 06/25/24 12/31/24 nortriptyline 25 mg capsule 25 mg PO .QHS 06/25/24 12/31/24 blood-glucose sensor (Dexcom G6 09/30/24 12/29/24 Sensor device) citalopram 40 mg tablet 40 mg PO DAILY 09/30/24 12/31/24 insulin pump cart,auto,BT,G6/7 09/30/24 12/28/24 (Omnipod 5 G6-G7 Pods (Gen 5) subcutaneous cartridge) levetiracetam 1,000 mg tablet 1,000 mg PO Q12H 09/30/24 12/31/24 metoprolol succinate 50 mg 50 mg PO DAILY 09/30/24 12/31/24 tablet,extended release 24 hr paliperidone 9 mg tablet,extended 9 mg PO Q24H 09/30/24 12/31/24 release 24 hr pantoprazole 40 mg tablet,delayed 40 mg PO DAILY 09/30/24 12/31/24 release pregabalin 75 mg capsule 75 mg PO Q12H 09/30/24 12/31/24 tizanidine 4 mg tablet 8 mg PO BEDTIME 09/30/24 12/31/24 hydroxyzine pamoate 100 mg capsule 100 mg PO BEDTIME 12/28/24 12/31/24 pen needle, diabetic 32 gauge x 12/28/24 12/28/24 (Denise 2nd Gen Pen Needle) Previous Rx's ?Medication ?Instructions ?Recorded atorvastatin 40 mg tablet 40 mg PO QHS 90 days #90 tabs 12/30/24 clopidogrel 75 mg tablet 75 mg PO QD 21 days #21 tabs 12/30/24 insulin aspart U-100 100 unit/mL 3 - 15 unit (0.03 - 0.15 mL) 12/30/24 (3 mL) subcutaneous pen (Novolog subcut ACHS 90 days #15 mL FlexPen U-100 Insulin aspart) insulin aspart U-100 100 unit/mL 15 unit (0.15 mL) subcut ACHS 90 12/30/24 (3 mL) subcutaneous pen (Novolog days #54 mL FlexPen U-100 Insulin aspart) insulin glargine 100 unit/mL (3 45 unit (0.45 mL) subcut BEDTIME 12/30/24 mL) subcutaneous pen (Lantus 90 days #15 mL Solostar U-100 Insulin) oxycodone-acetaminophen 5 mg-325 1 tab PO Q8H PRN pain 3 days #15 12/30/24 mg tablet tabs quetiapine 400 mg tablet 400 mg PO .daily #0 tabs 12/30/24 Allergies Allergy/AdvReac Type Severity Reaction Status Date / Time latex Allergy Rash Verified 12/28/24 13:13 vancomycin Allergy Rash Verified 12/28/24 13:13 acetaminophen (From AdvReac Rash Verified 12/28/24 13:13 Darvocet-N) adhesive tape AdvReac Rash Verified 12/28/24 13:13 codeine AdvReac Rash Verified 12/28/24 13:13 dextrose 5 % in water (From AdvReac Rash Verified 12/28/24 13:13 Zyvox) fentanyl AdvReac Rash Verified 12/28/24 13:13 ibuprofen AdvReac Rash Verified 12/28/24 13:13 linezolid (From Zyvox) AdvReac Rash Verified 12/28/24 13:13 propoxyphene (From AdvReac Rash Verified 12/28/24 13:13 Darvocet-N) iv dye Allergy Rash Uncoded 12/28/24 13:13 Review of Systems ROS Status of ROS 10 or more systems reviewed and unremarkable except as noted in history and below PFSH PFS Medical History (Updated 12/31/24 @ 20:16 by Efrem Mata DO) Pacemaker ?Z95.0 - Presence of cardiac pacemaker (ICD-10) Cholecystectomy planned Hysterectomy planned CHF (congestive heart failure) ?I50.9 - Heart failure, unspecified (ICD-10) Schizo affective schizophrenia ?F25.9 - Schizoaffective disorder, unspecified (ICD-10) Bipolar 1 disorder ?F31.9 - Bipolar disorder, unspecified (ICD-10) Depressed ?F32.A - Depression, unspecified (ICD-10) Stroke ?I63.9 - Cerebral infarction, unspecified (ICD-10) Diabetes ?E11.9 - Type 2 diabetes mellitus without complications (ICD-10) Family History Father Family history of CHF (congestive heart failure) Family history of diabetes mellitus Family history of myocardial infarction Mother Family history of COPD (chronic obstructive pulmonary disease) Family history of stroke Social History (Updated 12/31/24 @ 20:17 by Ne Mejias RN) Within the past year, how often did you have a drink containing alcohol: never Score interpretation: A score less than 3 is consistent with normal alcohol consumption. Smoking status: Current every day smoker Second hand tobacco smoke exposure: Yes Non-prescribed substance use: denies use Known occupational exposures/hazards: No Highest level of school completed/degree received: 11th grade In a typical week, how many times do you talk on the telephone with family, friends, or neighbors: 3 or more times per week Little interest or pleasure in doing things: several days Feeling down, depressed, or hopeless: not at all Feel stressed/tense/nervous/anxious/difficulty sleeping: only a little Life stressors: other Life stressor details: Pt was discharged to a SNF on 12/30/2024. Was there for approx 12 hours, and family arrived to sign her out r/t pt stated complaint of that prison was not for me. Now states that she is concerned about finding a rehab. Exam Narrative Exam Narrative: CONSTITUTIONAL: No acute distress, answering questions and following commands appropriately SKIN: Was warm and dry. EYES: Sclerae white. EARS, NOSE, THROAT: Moist oral mucosa. RESPIRATORY: Clear to auscultation bilaterally, no wheezes, crackles, or stridor, no use of accessory muscles CARDIOVASCULAR: Normal rate and regular rhythm. There is no S3, S4, murmur, rub. GASTROINTESTINAL: Abdomen is nondistended. MUSCULOSKELETAL: No peripheral edema. NEUROLOGIC: Patient is awake and alert. Weakness throughout the left upper and lower extremity. Facies were symmetrical. Constitutional Vital Signs, click to edit/add: Last Vital Signs Temp 97.9 F 12/31/24 20:06 Pulse 80 12/31/24 20:06 Resp 17 12/31/24 20:06 BP 176/102 H 12/31/24 20:06 Pulse Ox 100 12/31/24 20:41 O2 Del Method Room Air 12/31/24 20:41 Course Vital Signs Vital signs: Vital Signs Temperature 98.3 F 12/31/24 17:27 Pulse Rate 74 12/31/24 17:27 Respiratory Rate 16 12/31/24 17:27 Blood Pressure 130/81 12/31/24 17:27 Pulse Oximetry 98 12/31/24 17:27 Oxygen Delivery Method Room Air 12/31/24 17:27 Temperature 97.9 F 12/31/24 20:06 Pulse Rate 80 12/31/24 20:06 Respiratory Rate 17 12/31/24 20:06 Blood Pressure 176/102 H 12/31/24 20:06 Pulse Oximetry 100 12/31/24 20:41 Oxygen Delivery Method Room Air 12/31/24 20:41 MDM - Medical Clearance MDM Narrative Medical decision making narrative: Patient is a 49-year-old female presenting to the emergency department for placement to a new prison. She was discharged from the hospital and sent to prison last week after experiencing a CVA with residual left-sided weakness. She is currently asymptomatic with no new neurologic complaints. Examination as noted above. She is afebrile and hemodynamically stable. I did discuss the patient with the hospitalist, Dr. Martini, who agreed to admit the patient to his service for placement to a nursing facility. Discharge Plan Discharge Chief Complaint: Medical Clearance Clinical Impression: Debility, Left-sided weakness Patient Disposition: Admitted As Inpatient Time of Disposition Decision: 20:16 Condition: Good Discharge Date/Time: 12/31/24 19:57
[2025-01-01 06:30] LABS: Hematocrit 30.8 % (36.0-48.0); Hemoglobin 10.2 g/dL (12.0-16.0); Immature Granulocytes Abs Auto 0.05 10^3/uL (0.00-0.03); Immature Granulocytes Pct Auto 0.7 % (0.0-0.5); Lymphocytes Absolute Auto 2.3 10^3/uL (1.2-3.8); Mean Corpuscular HGB Conc 33.1 g/dL (29.9-35.2); Mean Corpuscular Hemoglobin 31.1 pg (26.7-34.0); Mean Corpuscular Volume 93.9 fL (81.0-99.0); Platelet Count 304 10^3/uL (150-450); Red Blood Count 3.28 10^6/uL (4.20-5.40); White Blood Count 7.0 10^3/uL (4.0-11.0)
[2025-01-01 06:44] LABS: Anion Gap 11.4; Blood Urea Nitrogen 32.0 mg/dL (7.0-18.0); Calcium 8.7 mg/dL (8.5-10.1); Carbon Dioxide 27.1 mmol/L (21.0-32.0); Chloride 106 mmol/L (98-107); Estimated GFR (African America 40 (>=60 mL/min/1.73m^2); Estimated GFR (Non-African Ame 33 (>=60 mL/min/1.73m^2); Glucose 251 mg/dL (74-106); Potassium 4.5 mmol/L (3.5-5.1); Sodium 140 mmol/L (136-145)
[2025-01-01] MEDS: INSULIN ASPART 300 UNIT/3 ML PEN SUBQ ×6 (09:17→21:36)
[2025-01-01] MEDS: PANTOPRAZOLE SODIUM 40 MG TABLET.DR PO (09:18)
[2025-01-01] MEDS: HEPARIN SODIUM (PORCINE) 5,000 UNIT/ML VIAL 5000 UNIT SUBQ ×2 (09:18→21:32)
[2025-01-01] MEDS: CITALOPRAM HYDROBROMIDE 20 MG TABLET 40 MG PO (09:19)
[2025-01-01] MEDS: LEVETIRACETAM 500 MG TABLET 1000 MG PO ×2 (09:19→21:33)
[2025-01-01] MEDS: CETIRIZINE HCL 10 MG TABLET PO (09:20)
[2025-01-01] MEDS: OXYCODONE HCL/ACETAMINOPHEN 5MG/325MG 1 TAB PO ×2 (09:20→20:05)
[2025-01-01] MEDS: CLOPIDOGREL BISULFATE 75 MG TABLET PO (09:20)
[2025-01-01] MEDS: ASPIRIN 81 MG TABLET.DR PO (09:20)
[2025-01-01] MEDS: CHLORTHALIDONE 25 MG TABLET PO (09:20)
[2025-01-01] MEDS: QUETIAPINE FUMARATE 100 MG TABLET 400 MG PO (09:20)
[2025-01-01] MEDS: PREGABALIN 75 MG CAPSULE PO ×2 (09:20→21:32)
[2025-01-01] MEDS: LEVOTHYROXINE SODIUM 75 MCG TABLET PO (11:11)
--- NOTE | 2025-01-01 11:26 | PM.HP ---
HPI H&P: HPI History of Present Illness Chief complaint: admission for placement recent CVA Narrative: This is a 49-year-old woman with uncontrolled diabetes mellitus type 2, and a BMI of 46, a history of strokes in the past, and hypertension who was recently in the hospital from December 28, 2024 through December 30, 2024 for a stroke. During that hospital stay she had left-sided deficits in her arm and her leg. She was not able to get an MRI because of her pacemaker. She was not able to get a CT scan with contrast because of a reported allergy to iodinated contrast media. After that hospital stay she was discharged to [facility], but she signed herself out somehow on the night of December 30, just before midnight, and she went up in the emergency room yesterday on December 31, at around dinnertime. She expresses that she wants to go to a different retirement facility in [place], where she received care back in the year 2018. When I see her on rounds this morning she is lying in bed with the right side down. She complains of feeling crappy and pain all over. She also mostly spends most of her times talking about redness and swelling to her left earlobe. She motions to the left side of the face where she feels some numbness. I think the earlobe looks like it had a mild abrasion for several days and maybe had some pressure on it but it is not hot or warm or tender to the touch. She continues to note the left-sided body stroke feelings mostly in her left arm. She actually was able to wiggle her left toes when I looked at them underneath the blankets. She says that she does not have a regular primary care provider. I reviewed her OARRS report. She has been picking up Percocet 5/325 enough for 3 tablets a day from a pain management doctor in [facility] for the last couple years and she also gets Lyrica on a regular basis from the same office. I saw the records that she used to black pickler a continuous glucose monitor and Omnipod continuous insulin infusion systems but she does not have access to that anymore. When I ask her about this she denies having run out of any of her medications at home. She says that I see Dr. Resendez (endocrinology in [place]) for my diabetes but when I questioned her on this more she has not actually started seeing that doctor yet. I pointed out that her hemoglobin A1c is uncontrolled at 13.2 so she has had very poor control of her diabetes over time. She says that she was checked for sleep apnea back in the day and did not have sleep apnea before today but she uses (very high doses) of Seroquel at nighttime to help with sleep. Opioid HPI Opioid Management Most Recent Pain and Opioid Data: Last Pain Scale 9 Today, 10:20 Last Pain Assessment 12/29/24, 09:25 Last Pain Assessment 12/31/24, 21:00 Last MAR Pain Assessment 12/31/24, 22:58 Last ORT Total Score 2 12/31/24, 20:06 Last ORT Risk Category Low Risk 12/31/24, 20:06 Ur Phencyclidine Scrn, (NEGATIVE) Negative 12/28/24, 13:44 Review of Systems ROS Narrative A 10 point review of systems is negative except as mention above in history of present illness. PFSH PFS Medical History (Updated 01/01/25 @ 11:34 by DAYO GUILLAUME) Cholecystectomy planned Hysterectomy planned CHF (congestive heart failure) ?I50.9 - Heart failure, unspecified (ICD-10) Schizo affective schizophrenia ?F25.9 - Schizoaffective disorder, unspecified (ICD-10) Bipolar 1 disorder ?F31.9 - Bipolar disorder, unspecified (ICD-10) Depressed ?F32.A - Depression, unspecified (ICD-10) Diabetes ?E11.9 - Type 2 diabetes mellitus without complications (ICD-10) Family History Father Family history of CHF (congestive heart failure) Family history of diabetes mellitus Family history of myocardial infarction Mother Family history of COPD (chronic obstructive pulmonary disease) Family history of stroke Social History (Updated 12/31/24 @ 20:17 by Ne Mejias RN) Within the past year, how often did you have a drink containing alcohol: never Score interpretation: A score less than 3 is consistent with normal alcohol consumption. Smoking status: Current every day smoker Second hand tobacco smoke exposure: Yes Non-prescribed substance use: denies use Known occupational exposures/hazards: No Highest level of school completed/degree received: 11th grade In a typical week, how many times do you talk on the telephone with family, friends, or neighbors: 3 or more times per week Little interest or pleasure in doing things: several days Feeling down, depressed, or hopeless: not at all Feel stressed/tense/nervous/anxious/difficulty sleeping: only a little Life stressors: other Life stressor details: Pt was discharged to a SNF on 12/30/2024. Was there for approx 12 hours, and family arrived to sign her out r/t pt stated complaint of that intermediate was not for me. Now states that she is concerned about finding a rehab. Meds Home Medications and Allergies Home Medications ?Medication ?Instructions ?Recorded ?Confirmed ?Type albuterol sulfate 90 mcg/actuation 1 puff inhalation Q4H PRN 10/23/22 12/31/24 History aerosol inhaler (Ventolin HFA) shortness of breath or wheezing aspirin 81 mg tablet,delayed 81 mg PO .daily 10/23/22 12/31/24 History release chlorthalidone 25 mg tablet 25 mg PO .daily 10/23/22 12/31/24 History lisinopril 40 mg tablet 40 mg PO .daily 10/23/22 12/31/24 History levothyroxine 75 mcg tablet 75 mcg PO .ACB 06/25/24 12/31/24 History loratadine 10 mg tablet 10 mg PO .QD 06/25/24 12/31/24 History nortriptyline 25 mg capsule 25 mg PO .QHS 06/25/24 12/31/24 History blood-glucose sensor (Dexcom G6 09/30/24 01/01/25 History Sensor device) citalopram 40 mg tablet 40 mg PO DAILY 09/30/24 12/31/24 History insulin pump cart,auto,BT,G6/7 09/30/24 01/01/25 History (Omnipod 5 G6-G7 Pods (Gen 5) subcutaneous cartridge) levetiracetam 1,000 mg tablet 1,000 mg PO Q12H 09/30/24 12/31/24 History metoprolol succinate 50 mg 50 mg PO DAILY 09/30/24 12/31/24 History tablet,extended release 24 hr paliperidone 9 mg tablet,extended 9 mg PO Q24H 09/30/24 12/31/24 History release 24 hr pantoprazole 40 mg tablet,delayed 40 mg PO DAILY 09/30/24 12/31/24 History release pregabalin 75 mg capsule 75 mg PO Q12H 09/30/24 12/31/24 History tizanidine 4 mg tablet 8 mg PO BEDTIME 09/30/24 12/31/24 History hydroxyzine pamoate 100 mg capsule 100 mg PO BEDTIME 12/28/24 12/31/24 History pen needle, diabetic 32 gauge x 12/28/24 01/01/25 History /32 (Denise 2nd Gen Pen Needle) atorvastatin 40 mg tablet 40 mg PO QHS 90 days #90 tabs 12/30/24 12/31/24 Rx clopidogrel 75 mg tablet 75 mg PO QD 21 days #21 tabs 12/30/24 12/31/24 Rx insulin aspart U-100 100 unit/mL 3 - 15 unit (0.03 - 0.15 mL) 12/30/24 12/31/24 Rx (3 mL) subcutaneous pen (Novolog subcut ACHS 90 days #15 mL FlexPen U-100 Insulin aspart) insulin aspart U-100 100 unit/mL 15 unit (0.15 mL) subcut ACHS 90 12/30/24 12/31/24 Rx (3 mL) subcutaneous pen (Novolog days #54 mL FlexPen U-100 Insulin aspart) insulin glargine 100 unit/mL (3 45 unit (0.45 mL) subcut BEDTIME 12/30/24 12/31/24 Rx mL) subcutaneous pen (Lantus 90 days #15 mL Solostar U-100 Insulin) oxycodone-acetaminophen 5 mg-325 1 tab PO Q8H PRN pain 3 days #15 12/30/24 12/31/24 Rx mg tablet tabs quetiapine 400 mg tablet 400 mg PO .daily #0 tabs 12/30/24 12/31/24 Rx Allergies Allergy/AdvReac Type Severity Reaction Status Date / Time latex Allergy Rash Verified 12/28/24 13:13 vancomycin Allergy Rash Verified 12/28/24 13:13 acetaminophen (From AdvReac Rash Verified 12/28/24 13:13 Darvocet-N) adhesive tape AdvReac Rash Verified 12/28/24 13:13 codeine AdvReac Rash Verified 12/28/24 13:13 dextrose 5 % in water (From AdvReac Rash Verified 12/28/24 13:13 Zyvox) fentanyl AdvReac Rash Verified 12/28/24 13:13 ibuprofen AdvReac Rash Verified 12/28/24 13:13 linezolid (From Zyvox) AdvReac Rash Verified 12/28/24 13:13 propoxyphene (From AdvReac Rash Verified 12/28/24 13:13 Darvocet-N) iv dye Allergy Rash Uncoded 12/28/24 13:13 Exam Narrative Exam Narrative: General: Reclining in bed at 1045 the morning. Looks very sleepy. Eyes: EOMI. PERRLA. Nose: Nasal labial folds are normal. Mouth: Tongue is moist. Tongue protrudes in the midline. No facial weakness or abnormality. Neck: No thyromegaly. Pulmonary: Clear to auscultation throughout. No wheezing. No crackles. Cardiac: Regular rate and rhythm to auscultation with no murmurs to auscultation. GI: Abdomen soft, normal bowel sounds to auscultation. Lower extremities: Trace of edema on the ankles. Upper extremities: Her left arm is weak. She mostly uses her right arm. She says that she is right hand dominant. Lower extremities: She was actually able to wiggle her left toes quite well and Babinski was normal. Skin: No systemic rashes or lesions. Urine is collected by an external catheter: Pure wick is in place. Constitutional Vital Signs, click to edit/add: Last Vital Signs Temp 98.2 F 01/01/25 07:51 Pulse 60 01/01/25 07:51 Resp 16 01/01/25 07:51 BP 86/58 L 01/01/25 09:00 Pulse Ox 90 L 01/01/25 07:51 O2 Del Method Room Air 01/01/25 07:51 Results Labs Labs: Short CBC 01/01/25 Range/Units 06:08 WBC 7.0 (4.0-11.0) 10^3/uL Hgb 10.2 L (12.0-16.0) g/dL Hct 30.8 L (36.0-48.0) % Plt Count 304 (150-450) 10^3/uL BMP 01/01/25 06:08 Sodium 140 Potassium 4.5 Chloride 106 Carbon Dioxide 27.1 BUN 32.0 H Creatinine 1.67 H Glucose 251 H Calcium 8.7 Assessment and Plan Assessment and Plan (1) Stroke: Qualifiers: CVA mechanism: unspecified Qualified Code(s): I63.9 - Cerebral infarction, unspecified (2) Left-sided weakness: (3) Debility: (4) CKD (chronic kidney disease): Qualifiers: Chronic kidney disease stage: stage 3 (moderate) Chronic kidney disease stage 3 subtype: stage 3b (GFR 30-44) Qualified Code(s): N18.32 - Chronic kidney disease, stage 3b (5) Hyperglycemia: (6) Pacemaker: (7) Chronic pain: Qualifiers: Chronic pain type: other chronic pain Qualified Code(s): G89.29 - Other chronic pain Plan Assessment: Recent hospital admission for stroke with left-sided deficits due to stroke. Exact details are not able to be obtained as she cannot tolerate IV CT dye and cannot tolerate MRI of the brain due to a pacemaker.. During that time she was started on Lipitor 40 mg daily. Hemoglobin A1c is 13.1. She was recommended to use aspirin 81 mg daily and Plavix 75 mg daily. After the first hospital stay she spent a short period of time before signing herself out of the retirement facility. Longstanding issues: Diabetes mellitus type 2, with poor control, with hyperglycemia. Chronic kidney disease stage IIIb. Chronic pain. History of pacemaker. History of stroke in the past. History of generalized seizure and also focal seizure in the past. BMI of 46.6. Generalized debility. Plan: Placement of the patient in the hospital. Consult to physical therapy. Consult Occupational Therapy. Consult to speech therapy. Check blood sugars AC and at bedtime and adjust sliding scale insulin to achieve euglycemia. Tomorrow, on Thursday, when case management is able to work on her situation again efforts will be made to get her into a retirement facility. DVT prophylaxis with heparin 5000 units subcutaneously every 12 hours. I told the patient that she must establish with a primary care provider, get maximum treatment for her diabetes, and make sure her other medical issues are under good control, as her condition is likely to worsen precipitously if she has any other acute medical events/emergencies. The patient did say I am princess that the stroke did not cause too many problems. And I pointed out that at her young age 49 with her current clinical condition of another medical emergency comes along she may find herself and bedbound status for the rest of her life having to rely on people to take care of her at home. She says that she has a 20-year-old daughter and she does not want her daughter to have to bury me.
[2025-01-01] MEDS: ALBUTEROL SULFATE 2.5 MG/3 ML VIAL NEB IH (12:01)
[2025-01-01] MEDS: BACITRACIN/NEOMYCIN/POLYMYXINB OINTMENT 14 GM TUBE 1 APPLIC TOPICAL ×2 (18:46→21:34)
[2025-01-01] MEDS: TIZANIDINE HCL 4 MG TABLET 8 MG PO (21:32)
[2025-01-01] MEDS: HYDROXYZINE PAMOATE 25 MG CAPSULE 100 MG PO (21:33)
[2025-01-01] MEDS: NORTRIPTYLINE HCL 25 MG CAPSULE PO (21:33)
[2025-01-01] MEDS: ATORVASTATIN CALCIUM 40 MG TABLET PO (21:34)
[2025-01-01] MEDS: INSULIN GLARGINE 300 UNIT/3 ML INSULN.PEN 45 UNIT SQ (21:34)
[2025-01-02 04:00] VITALS: BP 92/58; PULSE 62; TEMP 36.8; O2SAT 91
[2025-01-02] MEDS: BACITRACIN/NEOMYCIN/POLYMYXINB OINTMENT 14 GM TUBE 1 APPLIC TOPICAL ×4 (05:34→21:45)
[2025-01-02] MEDS: LEVOTHYROXINE SODIUM 75 MCG TABLET PO (05:34)
[2025-01-02] MEDS: OXYCODONE HCL/ACETAMINOPHEN 5MG/325MG 1 TAB PO ×3 (05:46→21:42)
[2025-01-02 07:18] VITALS: BP 100/66; PULSE 64; TEMP 36.8; O2SAT 92
--- NOTE | 2025-01-02 08:07 | SWNOTE1 ---
RACQUEL received a call on Thursday12/31/24. Per vendor quality supervisor, pt's family signed her out [facility] and they want her placed at [facility]. Pt and family were offered all the area facilities that take her insurance at her previous stay and they decided on [facility]. RACQUEL advised the Occ Ther that the precert at [facility] would need to be cancelled and a new precert would need to be started to get her to [facility]. SW is not able to get her placed at [facility] without approval from her insurance, unless pt/family want to pay out of pocket. RACQUEL did call Soumya, Director of MED/Surge, to discuss this as well. RACQUEL did also reach out to [facility] to clarify that pt would need new precert, they did confirm. RACQUEL attempted to call someone in admissions at [facility] on Thursday, but nobody was available. RACQUEL reached out to Dannielle at [facility] and they can review once referral sent over.
--- NOTE | 2025-01-02 08:15 | SWNOTE1 ---
Referral sent to [facility]. Referral included face sheet, ED note, H&P, provider notes, case management report, nursing notes, and med list. SW to send PT/OT once evaluation complete.
--- NOTE | 2025-01-02 08:20 | CM.NOTE ---
Rounds made with Dr. Martini, no discharge today. Pt continues with L sided weakness. Discussed with pt plan of care. Pt verbalizes she understands need for skilled therapy at discharge. Pt states [facility] was dirty and she was not getting good care. Pt verbalizes she would like to try [facility] in [facility] and will call [facility] to proceed with referral.
[2025-01-02] MEDS: INSULIN ASPART 300 UNIT/3 ML PEN SUBQ ×6 (08:24→21:45)
[2025-01-02] MEDS: HEPARIN SODIUM (PORCINE) 5,000 UNIT/ML VIAL 5000 UNIT SUBQ ×2 (08:32→21:40)
[2025-01-02] MEDS: CLOPIDOGREL BISULFATE 75 MG TABLET PO (08:33)
[2025-01-02] MEDS: PREGABALIN 75 MG CAPSULE PO ×2 (08:33→21:42)
[2025-01-02] MEDS: LEVETIRACETAM 500 MG TABLET 1000 MG PO ×2 (08:33→21:41)
[2025-01-02] MEDS: CHLORTHALIDONE 25 MG TABLET PO (08:33)
[2025-01-02] MEDS: ASPIRIN 81 MG TABLET.DR PO (08:33)
[2025-01-02] MEDS: CITALOPRAM HYDROBROMIDE 20 MG TABLET 40 MG PO (08:33)
[2025-01-02] MEDS: CETIRIZINE HCL 10 MG TABLET PO (08:33)
[2025-01-02] MEDS: PANTOPRAZOLE SODIUM 40 MG TABLET.DR PO (08:33)
--- NOTE | 2025-01-02 08:59 | SWNOTE1 ---
SW spoke to pt to see what happened at [facility]? Pt voiced that her daughter came over to see her and the nurses told her daughter that she had not arrived yet, even though she had been there for 6 hours. She also stated she ordered door dash and another resident took her door dash, so her daughter signed her out. Pt does want to go to [facility]. SW let her know that SW has sent referral to [facility] and we will have to see if they can accept and then see if her insurance approves her. Pt voiced understanding.
--- NOTE | 2025-01-02 09:59 | SWNOTE1 ---
SW sent OT note to [facility].
[2025-01-02 11:26] VITALS: BP 96/61; PULSE 60; TEMP 36.8; O2SAT 93
--- NOTE | 2025-01-02 11:33 | PM.PN ---
Progress Note: Subjective Subjective Interval history: No new symptoms since yesterday. Old left arm and leg weakness. Exam Narrative Exam Narrative: [pt is awake and alert. oriented to place, time and person HEENT: [address] conjunctiva and NL buccal mucosa Neck: Supple, no tenderness Endocrine: No Thyromegaly. Vascular: No JVD or carotid bruit. Lymphatic: No cervical lymphadenopathy. Chest: CTA no DTP. Heart RRR, no extra sound or murmur. Abd: Soft, no tenderness, no rebound and no rigidity. Increase abd girth therefore clinically I could not exclude the possibility of intra abd mass or organomegaly. LE: No cyanosis or clubbing, no varices or edema. Neuro: A A O. Nl speech, comprehension and attention. Patient is able to lift up her left arm against gravity but not resistance. Patient is unable to lift upper left leg against gravity. Patient stated that her left-sided deficit is old and not worse than baseline. []] Constitutional Vital Signs, click to edit/add: Last Vital Signs Temp 98.2 F 01/02/25 11:26 Pulse 60 01/02/25 11:26 Resp 18 01/02/25 11:26 BP 96/61 01/02/25 11:26 Pulse Ox 93 L 01/02/25 11:26 O2 Del Method Room Air 01/02/25 11:26 Progress Note: A&P Assessment and Plan (1) Stroke: Qualifiers: CVA mechanism: unspecified Qualified Code(s): I63.9 - Cerebral infarction, unspecified (2) Left-sided weakness: (3) Debility: (4) CKD (chronic kidney disease): Qualifiers: Chronic kidney disease stage: stage 3 (moderate) Chronic kidney disease stage 3 subtype: stage 3b (GFR 30-44) Qualified Code(s): N18.32 - Chronic kidney disease, stage 3b (5) Hyperglycemia: (6) Pacemaker: (7) Chronic pain: Qualifiers: Chronic pain type: other chronic pain Qualified Code(s): G89.29 - Other chronic pain Plan Recent right hemispheric stroke with left-sided weakness Continue dual antiplatelet therapy as well as statin. Hypertension Blood pressure is on the low side. Reduce lisinopril dose with holding parameters. Continue beta-kathia Diabetes Mild hyperglycemia. Continue long-acting insulin as well as meal short acting insulin sliding scale. Titrate and adjust accordingly. Functional impairment secondary to her stroke. PT OT eval and treatment. The patient disliked at the previous nursing facility. She is requesting to go to a different SNF. I discussed her case with case management. Plan is in progress CKD stage III at baseline Keep patient in euvolemic state. Reduce lisinopril dose from 40 mg down to 10 mg twice a day with holding parameters. Hypothyroidism Continue Synthroid History of seizure Continue Keppra History of noncompliance Counseling and medication Chronic medical conditions not listed above, incidental findings seen on labs and imaging. These would need to be addressed. Could be addressed when time and condition are appropriate. Could be addressed in the outpatient setting by PCP collaboration with other needed outpatient providers. Urinary Catheter Management Urinary Catheter Management Pure Wick: Cath placed during this visit: no
--- NOTE | 2025-01-02 12:24 | SWNOTE1 ---
RACQUEL received email from Dannielle at [facility]. She voiced they are out of network, but the DON and weatherization administrator gave permission to move forward and attempt to get authorization. RACQUEL faxed PT note to Dannielle for precert.
--- NOTE | 2025-01-02 12:41 | SWNOTE1 ---
RACQUEL received message from Dannielle at [facility] and precert has been submitted.
[2025-01-02] MEDS: 0.9 % SODIUM CHLORIDE 1,000 ML 100 ML IV ×2 (13:34→23:46)
--- NOTE | 2025-01-02 14:46 | SWNOTE1 ---
RACQUEL received a message from Dannielle at [facility] and she voiced that her DON is checking, but they may need to have 5 denials from facilities in network before they can accept. She is waiting for a for sure answer. RACQUEL to speak with pt.
--- NOTE | 2025-01-02 15:05 | SWNOTE1 ---
At this time [facility] is not in network with her insurance. RACQUEL spoke to pt and daughter who was on the phone. RACQUEL provided them with a list of facilities that are within the area with star ratings and who accepts her insurance. They decided that [facility] is first choice, [facility] is second, and [facility] is third choice. RACQUEL called and emailed Emelyn at [facility]. RACQUEL had to leave a message. RACQUEL faxed referral to Emelyn at [facility]. Referral included face sheet, phsyician notes, PT/OT, nursing notes, med list, vitals, and case management report.
[2025-01-02 15:06] VITALS: BP 118/79; PULSE 80; TEMP 36.7; O2SAT 95
[2025-01-02 20:00] VITALS: BP 117/73; PULSE 83; TEMP 37.4; O2SAT 96
[2025-01-02] MEDS: NORTRIPTYLINE HCL 25 MG CAPSULE PO (21:41)
[2025-01-02] MEDS: ATORVASTATIN CALCIUM 40 MG TABLET PO (21:41)
[2025-01-02] MEDS: TIZANIDINE HCL 4 MG TABLET 8 MG PO (21:42)
[2025-01-02] MEDS: HYDROXYZINE PAMOATE 25 MG CAPSULE 100 MG PO (21:42)
[2025-01-02] MEDS: QUETIAPINE FUMARATE 100 MG TABLET 400 MG PO (21:42)
[2025-01-02] MEDS: INSULIN GLARGINE 300 UNIT/3 ML INSULN.PEN 45 UNIT SQ (21:43)
[2025-01-03] VITALS (7 sets, daily range): BP systolic 88–151; BP diastolic 57–92; PULSE 60–69; TEMP 36.3–36.6; O2SAT 90–93
[2025-01-03] MEDS: LEVOTHYROXINE SODIUM 75 MCG TABLET PO (06:21)
[2025-01-03] MEDS: BACITRACIN/NEOMYCIN/POLYMYXINB OINTMENT 14 GM TUBE 1 APPLIC TOPICAL ×4 (06:24→21:35)
[2025-01-03] MEDS: OXYCODONE HCL/ACETAMINOPHEN 5MG/325MG 1 TAB PO ×2 (06:24→20:35)
--- NOTE | 2025-01-03 08:10 | SWNOTE1 ---
RACQUEL received a message from Higinio at [facility] and he is required to do an on site visit with pt. RACQUEL updated nurse.
[2025-01-03] MEDS: PANTOPRAZOLE SODIUM 40 MG TABLET.DR PO (08:20)
[2025-01-03] MEDS: CHLORTHALIDONE 25 MG TABLET PO (08:20)
[2025-01-03] MEDS: INSULIN ASPART 300 UNIT/3 ML PEN SUBQ ×4 (08:20→11:56)
[2025-01-03] MEDS: HEPARIN SODIUM (PORCINE) 5,000 UNIT/ML VIAL 5000 UNIT SUBQ ×2 (08:20→20:35)
[2025-01-03] MEDS: PREGABALIN 75 MG CAPSULE PO ×2 (08:21→20:35)
[2025-01-03] MEDS: CLOPIDOGREL BISULFATE 75 MG TABLET PO (08:21)
[2025-01-03] MEDS: METOPROLOL SUCCINATE 50 MG TAB.ER.24H PO (08:21)
[2025-01-03] MEDS: ASPIRIN 81 MG TABLET.DR PO (08:21)
[2025-01-03] MEDS: CITALOPRAM HYDROBROMIDE 20 MG TABLET 40 MG PO (08:21)
[2025-01-03] MEDS: LEVETIRACETAM 500 MG TABLET 1000 MG PO ×2 (08:21→20:35)
[2025-01-03] MEDS: CETIRIZINE HCL 10 MG TABLET PO (08:21)
--- NOTE | 2025-01-03 09:06 | SWNOTE1 ---
SW received a message from Higinio at [facility] and they are able to accept. They will start precert today once they have therapy notes from today.
--- NOTE | 2025-01-03 09:59 | CM.NOTE ---
Rounds made with Dr. Martini. Continue with current treatment plan. All questions answered by Dr. Martini.
--- NOTE | 2025-01-03 11:41 | SWNOTE1 ---
SW faxed PT/OT, vitals, and nursing note to [facility] for precert.
--- NOTE | 2025-01-03 11:48 | P.DS_ITS ---
DS: Providers Provider Date of admission: 12/31/24 19:57 Primary care physician: Non-Staff Physician, Consults: 12/31/24 20:21 Occupational Therapy Eval and Treat Routine Reason for consultation: CVA Physical Therapy Eval and Treat Routine Reason for consultation: CVA DS: Diagnosis Discharge Diagnosis (1) Stroke: Qualifiers: CVA mechanism: unspecified Qualified Code(s): I63.9 - Cerebral infarction, unspecified (2) Left-sided weakness: (3) Debility: (4) CKD (chronic kidney disease): Qualifiers: Chronic kidney disease stage: stage 3 (moderate) Chronic kidney disease stage 3 subtype: stage 3b (GFR 30-44) Qualified Code(s): N18.32 - Chronic kidney disease, stage 3b (5) Hyperglycemia: (6) Pacemaker: (7) Chronic pain: Qualifiers: Chronic pain type: other chronic pain Qualified Code(s): G89.29 - Other chronic pain Plan As listed above and others that are not listed DS: Summary Hospital Course Hospital Course: Mrs Ita is a 49-year-old female with left sided weakness secondary to a stroke. Patient was discharged recently to a fdc however patient signed herself out due to dissatisfaction with the facilities hygiene and staff attitude. She was brought back to the emergency room requesting to arrange for her to be admitted to another skilled facility. Recent right hemispheric stroke with left-sided weakness Continue dual antiplatelet therapy as well as statin. Hypertension Blood pressure is on the low side. Reduced lisinopril dose with holding parameters. Continue beta-kathia Diabetes Mild hyperglycemia. Continue long-acting insulin as well as meal short acting insulin sliding scale. Titrate and adjust accordingly. Functional impairment secondary to her stroke. PT OT eval and treatment. The patient disliked at the previous nursing facility. She is requesting to go to a different SNF. I discussed her case with case management. Plan is in progress CKD stage III at baseline Keep patient in euvolemic state. Reduce lisinopril dose from 40 mg down to 10 mg twice a day with holding parameters. Hypothyroidism Continue Synthroid History of seizure Continue Keppra History of noncompliance Counseling and medication Chronic medical conditions not listed above, incidental findings seen on labs and imaging. These would need to be addressed. Could be addressed when time and condition are appropriate. Could be addressed in the outpatient setting by PCP collaboration with other needed outpatient providers. Patient will be admitted to another nursing facility once accepted. Patient has multiple complex medical issues as listed above and others that are not listed. All appear to be stable. I do not have any clear or strong clinical justification to extend inpatient hospitalization. Patient however will require close and frequent monitoring as well as additional work-up, investigation and therapeutic intervention that could take place from this point on post discharge. That is to prevent relapse, decompensation, rehospitalization and other medical implications. I instructed patient to ask her primary care doctor to obtain [facility] record entirely to address abnormalities seen on labs and imaging that I have and have not addressed during this hospitalization, follow-up on pending blood work, imaging and pathology is if available and to follow-up on needed medical care in the outpatient setting. Time Spent with Patient Time attestation: Total time spent providing and/or coordinating discharge services: Exam Narrative Exam Narrative: [pt is awake and alert. oriented to place, time and person HEENT: [place] conjunctiva and NL buccal mucosa Neck: Supple, no tenderness Endocrine: No Thyromegaly. Vascular: No JVD or carotid bruit. Lymphatic: No cervical lymphadenopathy. Chest: CTA no DTP. Heart RRR, no extra sound or murmur. Abd: Soft, no tenderness, no rebound and no rigidity. Increase abd girth therefore clinically I could not exclude the possibility of intra abd mass or organomegaly. LE: No cyanosis or clubbing, no varices or edema. Neuro: A A O. Nl speech, comprehension and attention. Left-sided weakness. Patient is able to lift up her left arm against gravity. Unable to lift upper left leg against gravity. She can move it sideways. At her baseline from prior to this admission []] Constitutional Vital Signs, click to edit/add: Last Vital Signs Temp 97.7 F 01/03/25 08:10 Pulse 67 01/03/25 08:10 Resp 16 01/03/25 08:10 BP 105/63 01/03/25 08:30 Pulse Ox 92 L 01/03/25 08:10 O2 Del Method Room Air 01/03/25 08:10 DS: Data Data Completed and Pending Labs on day of discharge: Labs from last 24 hours 01/03/25 01/02/25 01/02/25 07:49 21:11 16:09 POC Glucose 223 H 212 H 168 H Discharge Plan Discharge Disposition: Xfer SNF Condition: Good Discharge Medications: New lisinopril 10 mg Tablet 10 mg PO DAILY Qty: 0 0RF Rx Instructions: Hold for SBP < 135 calcium carbonate 200 mg calcium (500 mg) Tablet,Chewable 500 mg PO TID PRN (Reason: Indigestion or heartburn) Qty: 0 0RF docusate sodium 100 mg Capsule 100 mg PO BID PRN (Reason: Constipation) Qty: 0 0RF insulin aspart U-100 [Novolog FlexPen U-100 Insulin] 100 unit/mL (3 mL) Insulin Pen 3 - 15 unit subcut ACHS Qty: 0 0RF insulin aspart U-100 [Novolog FlexPen U-100 Insulin] 100 unit/mL (3 mL) Insulin Pen 7 unit subcut ACHS Qty: 0 0RF insulin glargine [Lantus Solostar U-100 Insulin] 100 unit/mL (3 mL) Insulin Pen 50 unit SQ QHS Qty: 0 0RF sennosides-docusate sodium [Senna Plus] 8.6-50 mg Tablet 1 tab PO QD PRN (Reason: Constipation) Qty: 0 0RF quetiapine 100 mg Tablet 400 mg PO QHS Qty: 0 0RF Continued citalopram 40 mg tablet 40 mg PO DAILY tizanidine 4 mg tablet 8 mg PO BEDTIME metoprolol succinate 50 mg tablet extended release 24 hr 50 mg PO DAILY pantoprazole 40 mg tablet,delayed release (DR/EC) 40 mg PO DAILY pregabalin 75 mg capsule 75 mg PO Q12H levetiracetam 1,000 mg tablet 1,000 mg PO Q12H paliperidone 9 mg tablet extended release 24hr 9 mg PO Q24H atorvastatin 40 mg Tablet 40 mg PO QHS 90 Days Qty: 90 0RF clopidogrel 75 mg Tablet 75 mg PO QD 21 Days Qty: 21 0RF albuterol sulfate [Ventolin HFA] 90 mcg/actuation HFA aerosol inhaler 1 puff INHALATION Q4H PRN (Reason: shortness of breath or wheezing) chlorthalidone 25 mg tablet 25 mg PO .daily aspirin 81 mg tablet,delayed release (DR/EC) 81 mg PO .daily levothyroxine 75 mcg tablet 75 mcg PO .ACB loratadine 10 mg tablet 10 mg PO .QD nortriptyline 25 mg capsule 25 mg PO .QHS oxycodone-acetaminophen 5-325 mg tablet 1 tab PO Q8H PRN (Reason: pain) 3 Days Qty: 15 0RF Discontinued (DME) Dexcom G6 Sensor Device MISCELLANEOUS (DME) Omnipod 5 G6-G7 Pods (Gen 5) Cartridge SUBCUT hydroxyzine pamoate 100 mg capsule 100 mg PO BEDTIME (DME) pen needle, diabetic [Denise 2nd Gen Pen Needle] 32 gauge x 5/32 needle MISCELLANEOUS insulin aspart U-100 [Novolog FlexPen U-100 Insulin] 100 unit/mL (3 mL) Insulin Pen 3 - 15 unit subcut ACHS 90 Days Qty: 15 0RF insulin aspart U-100 [Novolog FlexPen U-100 Insulin] 100 unit/mL (3 mL) Insulin Pen 15 unit subcut ACHS 90 Days Qty: 54 0RF insulin glargine [Lantus Solostar U-100 Insulin] 100 unit/mL (3 mL) Insulin Pen 45 unit subcut BEDTIME 90 Days Qty: 15 0RF quetiapine 400 mg tablet 400 mg PO .daily Qty: 0 0RF lisinopril 40 mg tablet 40 mg PO .daily Print Language: Yakut Activity Restrictions/Additional Instructions: I may not have addressed or treated all of your medical illnesses or the abnormal blood work or imaging studies during this hospitalization. Please ask your primary care provider to obtain [facility] records entirely to follow up on all of the abnormal physical, laboratory, and imaging findings that I have not addressed. Please return back to the emergency room or seek medical attention if your symptoms worsen or return. Check your blood sugar 3 times a day before meals. Document these numbers on a blood glucose log and bring them with you to your follow-up appointment with your primary care doctor. Communicate with your primary care doctor or mobile marketing specialist if your blood sugar is under 100 or above 300 on 2 consecutive checks. Communicate with your primary care doctor or mobile marketing specialist if you have any questions about your diabetes medications. Signs of a low blood sugar include sweating, racing heart, dizziness and/or weakness. Check your blood sugar if you have any of the symptoms. Discharging you from [facility] does not mean that your medical care ends here and now. You may still need additional monitoring, work up, investigation, and treatment plan to be handled from this point on by out patient providers including your primary care provider and specialists. For any medication question, please contact your retail pharmacist or your primary care provider. Thank you. Forms: Portal Instructions Follow Up Appointments: 02/06 @ 1pm with [facility] Neurology [address] [id number] [phone]
[2025-01-03] MEDS: 0.9 % SODIUM CHLORIDE 1,000 ML 125 ML IV (16:47)
[2025-01-03 16:58] LABS: Hematocrit 35.1 % (36.0-48.0); Hemoglobin 11.3 g/dL (12.0-16.0); Mean Corpuscular HGB Conc 32.2 g/dL (29.9-35.2); Mean Corpuscular Hemoglobin 31.2 pg (26.7-34.0); Mean Corpuscular Volume 97.0 fL (81.0-99.0); Platelet Count 291 10^3/uL (150-450); Red Blood Count 3.62 10^6/uL (4.20-5.40); White Blood Count 8.2 10^3/uL (4.0-11.0)
[2025-01-03 17:06] LABS: Anion Gap 9.5; Blood Urea Nitrogen 48.0 mg/dL (7.0-18.0); Calcium 9.0 mg/dL (8.5-10.1); Carbon Dioxide 26.4 mmol/L (21.0-32.0); Chloride 110 mmol/L (98-107); Estimated GFR (African America 31 (>=60 mL/min/1.73m^2); Estimated GFR (Non-African Ame 26 (>=60 mL/min/1.73m^2); Glucose 110 mg/dL (74-106); Potassium 4.9 mmol/L (3.5-5.1); Sodium 141 mmol/L (136-145)
[2025-01-03] MEDS: ATORVASTATIN CALCIUM 40 MG TABLET PO (21:30)
[2025-01-03] MEDS: HYDROXYZINE PAMOATE 25 MG CAPSULE 100 MG PO (21:30)
[2025-01-03] MEDS: TIZANIDINE HCL 4 MG TABLET 8 MG PO (21:30)
[2025-01-03] MEDS: QUETIAPINE FUMARATE 100 MG TABLET 400 MG PO (21:30)
[2025-01-03] MEDS: NORTRIPTYLINE HCL 25 MG CAPSULE PO (21:30)
[2025-01-03] MEDS: INSULIN GLARGINE 300 UNIT/3 ML INSULN.PEN 45 UNIT SQ (21:34)
[2025-01-04] MEDS: 0.9 % SODIUM CHLORIDE 1,000 ML 125 ML IV (00:57)
[2025-01-04 04:00] VITALS: BP 86/52; PULSE 60; TEMP 36.9; O2SAT 94
[2025-01-04 04:31] VITALS: BP 86/62
[2025-01-04] MEDS: BACITRACIN/NEOMYCIN/POLYMYXINB OINTMENT 14 GM TUBE 1 APPLIC TOPICAL ×2 (06:03→11:56)
[2025-01-04] MEDS: LEVOTHYROXINE SODIUM 75 MCG TABLET PO (06:03)
[2025-01-04] MEDS: 0.9 % SODIUM CHLORIDE 500 ML IV (06:20)
[2025-01-04 06:42] LABS: Anion Gap 10.5; Blood Urea Nitrogen 46.0 mg/dL (7.0-18.0); Calcium 8.2 mg/dL (8.5-10.1); Carbon Dioxide 25.4 mmol/L (21.0-32.0); Chloride 110 mmol/L (98-107); Estimated GFR (African America 39 (>=60 mL/min/1.73m^2); Estimated GFR (Non-African Ame 32 (>=60 mL/min/1.73m^2); Glucose 255 mg/dL (74-106); Potassium 4.9 mmol/L (3.5-5.1); Sodium 141 mmol/L (136-145)
[2025-01-04 07:25] VITALS: BP 100/67; PULSE 60; TEMP 36.9; O2SAT 94
[2025-01-04] MEDS: CETIRIZINE HCL 10 MG TABLET PO (08:16)
[2025-01-04] MEDS: PANTOPRAZOLE SODIUM 40 MG TABLET.DR PO (08:16)
[2025-01-04] MEDS: CITALOPRAM HYDROBROMIDE 20 MG TABLET 40 MG PO (08:16)
[2025-01-04] MEDS: HEPARIN SODIUM (PORCINE) 5,000 UNIT/ML VIAL 5000 UNIT SUBQ (08:16)
[2025-01-04] MEDS: PREGABALIN 75 MG CAPSULE PO (08:16)
[2025-01-04] MEDS: CLOPIDOGREL BISULFATE 75 MG TABLET PO (08:16)
[2025-01-04] MEDS: LEVETIRACETAM 500 MG TABLET 1000 MG PO (08:16)
[2025-01-04] MEDS: ASPIRIN 81 MG TABLET.DR PO (08:16)
[2025-01-04] MEDS: INSULIN ASPART 300 UNIT/3 ML PEN SUBQ ×2 (08:17→08:18)
--- NOTE | 2025-01-04 08:26 | PM.PN ---
Progress Note: Subjective Subjective Interval history: No new symptoms since yesterday. Old left arm and leg weakness. Blood pressure dropped yesterday. Patient had received IV fluid infusion. Lisinopril was placed on hold. Exam Narrative Exam Narrative: [pt is awake and alert. oriented to place, time and person HEENT: [place] conjunctiva and NL buccal mucosa Neck: Supple, no tenderness Endocrine: No Thyromegaly. Vascular: No JVD or carotid bruit. Lymphatic: No cervical lymphadenopathy. Chest: CTA no DTP. Heart RRR, no extra sound or murmur. Abd: Soft, no tenderness, no rebound and no rigidity. Increase abd girth therefore clinically I could not exclude the possibility of intra abd mass or organomegaly. LE: No cyanosis or clubbing, no varices or edema. Neuro: A A O. Nl speech, comprehension and attention. Left-sided weakness. Patient is able to lift up her left arm against gravity. Unable to lift upper left leg against gravity. She can move it sideways. At her baseline from prior to this admission []] Constitutional Vital Signs, click to edit/add: Last Vital Signs Temp 98.5 F 01/04/25 07:25 Pulse 60 01/04/25 07:25 Resp 18 01/04/25 07:25 BP 100/67 01/04/25 07:25 Pulse Ox 94 L 01/04/25 07:25 O2 Del Method Room Air 01/04/25 07:25 Progress Note: Objective Labs Labs: Short CBC 01/03/25 Range/Units 16:50 WBC 8.2 (4.0-11.0) 10^3/uL Hgb 11.3 L (12.0-16.0) g/dL Hct 35.1 L (36.0-48.0) % Plt Count 291 (150-450) 10^3/uL BMP 01/03/25 01/04/25 16:50 06:26 Sodium 141 141 Potassium 4.9 4.9 Chloride 110 H 110 H Carbon Dioxide 26.4 25.4 BUN 48.0 H 46.0 H Creatinine 2.07 H 1.72 H Glucose 110 H 255 H Calcium 9.0 8.2 L Progress Note: A&P Assessment and Plan (1) Stroke: Qualifiers: CVA mechanism: unspecified Qualified Code(s): I63.9 - Cerebral infarction, unspecified (2) Left-sided weakness: (3) Debility: (4) CKD (chronic kidney disease): Qualifiers: Chronic kidney disease stage: stage 3 (moderate) Chronic kidney disease stage 3 subtype: stage 3b (GFR 30-44) Qualified Code(s): N18.32 - Chronic kidney disease, stage 3b (5) Hyperglycemia: (6) Pacemaker: (7) Chronic pain: Qualifiers: Chronic pain type: other chronic pain Qualified Code(s): G89.29 - Other chronic pain Plan Recent right hemispheric stroke with left-sided weakness Continue dual antiplatelet therapy as well as statin. No neurodeficit. Patient signed herself out of the [facility] and came back to the emergency room requesting to be placed at another facility. Hopefully this will be completed today and the patient will be discharged to SNF for physical occupational therapy. Hypertension Blood pressure is on the low side. Reduced lisinopril dose with holding parameters. Subsequently I discontinued the lisinopril. Continue beta-kathia Blood pressure management would need to continue to take place to be handled by provider at SNF. Diabetes Mild hyperglycemia. Continue long-acting insulin as well as meal short acting insulin sliding scale. Titrate and adjust accordingly. Functional impairment secondary to her stroke. PT OT eval and treatment. The patient disliked at the previous nursing facility. She is requesting to go to a different SNF. I discussed her case with case management. Plan is in progress CKD stage III at baseline Mild SOLO, responded to IV fluid infusion Keep patient in euvolemic state. Lisinopril dose has been reduced and subsequently discontinued Hypothyroidism Continue Synthroid History of seizure Continue Keppra History of noncompliance Counseling and medication Chronic medical conditions not listed above, incidental findings seen on labs and imaging. These would need to be addressed. Could be addressed when time and condition are appropriate. Could be addressed in the outpatient setting by PCP collaboration with other needed outpatient providers. Patient has multiple complex medical issues as listed above and others that are not listed. All appear to be stable. I do not have any clear or strong clinical justification to extend inpatient hospitalization. Patient however will require close and frequent monitoring as well as additional work-up, investigation and therapeutic intervention that could take place from this point on post discharge. That is to prevent relapse, decompensation, rehospitalization and other medical implications. I instructed patient to ask her primary care doctor to obtain [facility] record entirely to address abnormalities seen on labs and imaging that I have and have not addressed during this hospitalization, follow-up on pending blood work, imaging and pathology is if available and to follow-up on needed medical care in the outpatient setting. Urinary Catheter Management Urinary Catheter Management Pure Wick: Cath placed during this visit: yes, but has since been removed by the nurse Insertion date: 01/04/25 Insertion time: 04:19 Removal date: 01/03/25 Removal time: 06:00
--- NOTE | 2025-01-04 08:47 | SWNOTE1 ---
RACQUEL reached out to Higinio at [facility], precert is still pending.
[2025-01-04] MEDS: OXYCODONE HCL/ACETAMINOPHEN 5MG/325MG 1 TAB PO (09:34)
--- NOTE | 2025-01-04 11:33 | PC.NURSE ---
Report called to Cris at [facility]. Informed that pt scheduled to be picked up by ambulance at 2:00pm
--- NOTE | 2025-01-04 11:33 | SWNOTE1 ---
RACQUEL received a call from Higinio at [facility] and pt is approved to go skilled there. RACQUEL let doctor and nurse know. RACQUEL completed PASR online. RACQUEL sent dc med rec to [facility]. RACQUEL called and set up [facility] for pt to go to [facility]. Transport set for 2:00. RACQUEL let nurse and [facility] know time. RACQUEL called daughter and updated her. RACQUEL took packet to the floor for nurse. RACQUEL completed [facility] paperwork. Pt
[2025-01-04] MEDS: HEPARIN SODIUM (PORCINE) PF LOCK FLUSH 500 UNIT/5 ML SYRINGE IV (11:58)
--- OUTSIDE RECORDS SUMMARY | 2025-01-04 18:22 | XMS_ITS | Clinical Summary ---
Author Organization [facility] Address [address] [place] [address] Care Team Providers Care Solar Electric/Photovoltaic Installer Name Role Phone George Rob DO Primary [...] N ot on file 04/29/2020 Data from: [email or web address] Last address used for calculation Not [...] (#1) 2025 Insurance [employer] Care Teams Solar Electric/Photovoltaic Installer Relationship Specialty Start Date End Date George Rob DO PCP - General Family Medicine 12/13/14 Soto Steiner [address] [place] [address] Physician Podiatry 07/17/17
--- OUTSIDE RECORDS SUMMARY | 2025-01-04 18:22 | XMS_ITS | Patient Health Record ---
Author Organization [facility] Address [address] [address] Care Team Providers Care Electric Razor Assembler Name Role Phone Enrique Hebert Primary Care Provider Kash Smith [facility], [facility] Un[facility] Unavailable Mario Castillo Unavailable [phone] Reason For Referral No Information Encounters Encounter Location Date Provider Diagnosis [facility] [address] [address] 03/15/2024 Mario Castillo Plan Of Treatment Next Appt Details Provider Name:Mario rockwell, 03/14/2025 01:30:00 PM, [address] [place] [address] [address], [place] [address], [place], [address], Insurance Providers Payer Name Payer Address Payer Phone Subscriber Number Group Number Insured Name Patient Relationship to Insured Coverage Start Date Coverage End Date [employer] [place] [address] [place] [address] [id number] ORGAN, ADDIE Self - patient is the insured [employer] [place] [address] [place] [address] [id number] ORGAN, ADDIE Self - patient is the insured 4
--- OUTSIDE RECORDS SUMMARY | 2025-01-04 18:22 | XMS_ITS | Clinical Summary ---
Author Organization [facility] Address [address] [place] [address] Care Team Providers Care Driver Supervisor Name Role Phone George Rob DO Primary Care Provider [phone] Allergies Active Allergy Reactions Criticality Noted Date [...] mg by mouth daily Active nystatin (MYCOSTATIN) 914207 UNIT/GM cream Apply topically 2 times daily Apply topically 2 times daily. Active nystatin (MYCOSTATIN) 925379 UNIT/GM powder Apply topically 4 times daily [...] Plan of Treatment Not on file Insurance [facility] [employer] Advance Directives * Full Code (Latest Code Status on File) Date Activated Date Inactivated Comments 05/25/2015 10:03 PM 05/28/2015 9:21 PM Care Teams Driver Supervisor Relationship Specialty Start Date End Date George Rob DO [address] [place] [address] PCP - General Family Medicine 05/28/15
--- OUTSIDE RECORDS SUMMARY | 2025-01-04 18:22 | XMS_ITS | Clinical Summary ---
Author Organization [employer] Address [id number] [address] [place] [address] Care Team Providers Care Lace Roller Operator Name Role Phone Unavailable Primary Care [...] mouth in the morning. 30 tablet 2 2 Active oxyCODONE-aceta minophen (PERCOCET) 5-325 mg per tabletIndicatio ns:pain Take 1 tablet by mouth every 8 (eight) hours as needed for pain Indications: pain. Max Daily Amount: 3 tablets Active insulin glargine (LANTUS) 100 unit/mL injection Inject 0.3 mL (30 Units total) under the skin in the morning and 0.3 mL (30 Units total) before bedtime. 10 mL 12 5 Active insulin lispro (HumaLOG) 100 unit/mL insulin pen Inject 2-10 Units under the skin 4 (four) times a day with meals and nightly. 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 Right leg weakness 03/05/2022 Encounters Date Type Department Care Team Description 12/06/2024 Telephone [facility] - Pharmacy Medication Management [address] [place] [id number] Lisa Chavira MA 12/03/2024 Travel 12/02/2024 11:49 PM EDT - 12/05/2024 5:05 PM EDT Hospital Encounter [facility] - GEN [address] Acute [address] [place] [address] Beth Vargas MD Jay, Bryanna M, MD HHS (hypothenar hammer syndrome) (Primary Dx); Hyperosmolar hyperglycemic state (HHS) ([facility]) Discharge Disposition: Home Health 12/02/2024 3:30 PM EDT Ancillary Procedure [facility] [address] [place] [address] Pain from Last 3 Months Immunizations Immunization Administration Dates Next Due COVID-19, mRNA, LNP-S, PF, 100mcg/0.5mL Dose 12/02/2020 Influenza Tri-valent Im, Adult 02/11/2024 Influenza Whole 05/28/2015 Influenza, Im Trivalent Preservative 03/26/2014 Influenza, Injectable, Quadrivalent 02/22/2018 Influenza, Injectable, quadr ivalent (PF) 05/06/2023,04/09/2022,03/06/2021,06/05,05/25/2020 Pneumococcal Conjugate 20-valent 05/06/2023,1109/2022 Pneumococcal Polysaccharide 03/06/2021 Tdap 02/21/2022 Family History [...] = 0.6 oz pur e alcohol) rare AirDroids[employer] Answer Date Recorded In the past 12 months has [employer], gas, oil, or water [employer] threatened to shut off services in your [...] Last Done Comments Diabetic Ophthalmology Exam 1977 Tobacco Counseling 1977 Adult BMI Follow Up Plan 1995 Diabetic Foot Exam 1995 COVID-19 Vaccine (2023- 5 season) 2024 02/16/2021, 12/02/2020 Influenza Vaccine 01/23/2025 02/11/2024, , 04/09/2022, Additional history exists Statin Use: Diabetic 10/05/2025 10/05/2024 Adult BMI Screening 12/03/2025 12/03/2024 Depression Screening 12/03/2025 12/03/2024 Tobacco Screening 12/03/2025 12/03/2024 DTaP,Tdap and Td Vaccines (2 - Td or Tdap) 02/22/2032 02/21/2022 Goals Goal Patient Goal Type Associated Problems Recent Progress Patient-Stated? Author Return Home General Yes Mary Correa, RN Note: Evaluation of progress towards goal: safe discharge to [facility] with Home Care and daughter, friend support <enter goal here> General Yes Ezra Will, RN Note: Evaluation of progress towards goal: home with [facility] Medical Devices Implanted Type Area Shredded Filler Cutter Operator Device Identifier Shelf Expiration Date Model / Serial / Lot Capsurefix Novus Mri Surescan [id number]/30/2017 Implanted:2016 (Quantity not on file) [employer] CARD RHYTHM DEVICES [id number] / / (Not Safe)Evera Mri Xt Us_Version Implanted:2018 (Quantity not on file) [employer]ARD [employer]HY[employer] DEVICES [id number] / / Description:NOT SAFE DUE TO ABANDONED CAPPED LEAD PER VAN [employer]. Sprint Quattro Secure S [id number]-04/06/2019 Implanted:2018 (Quantity not on file) [employer]HY[employer] DEV[employer] [id number] / / Procedures Procedure Name Priority Date/Time [...] of20 resultswithin the time period is included. [facility] Bedside Glucose (POC) 244(H) 65 - 99 mg/dL 12/05/2024 12:15 PM EDT [facility] arterial/capilla ry 12/05/2024 12:14 PM EDT 12/05/2024 12:15 PM EDT us Elda Aguirre MD POINT OF CARE TEST ORDERABLES F inal Result [facility] [address] [place] [address], * (ABNORMAL) Basic Metabolic Panel (12/05/2024 5:43 AM EDT) Only the most recent of2 resultswithin the time period is included. [facility] SODIUM 139 134 - 146 mmol/L 12/05/2024 6:34 AM EDT [facility] POTASSIUM 4.6 3.5 - 5.0 mmol/L 12/05/2024 6:34 AM EDT [facility] CHLORIDE 111(H) 98 - 109 mmol/L 12/05/2024 6:34 AM EDT [facility] CARBON DIOXIDE 22 22 - 32 mmol/L 12/05/2024 6:34 AM EDT [facility] ANION GAP 6 5 - 15 mmol/L 12/05/2024 6:34 AM EDT [facility] BLOOD UREA NITROGEN 17 5 - 23 mg/dL 12/05/2024 6:34 AM EDT [facility] CREATININE 0.95 0.40 - 1.00 mg/dL 12/05/2024 6:34 AM EDT [facility] Comment:METHOD TRACEABLE TO IDMS STANDARD GLUCOSE 225(H) 65 - 99 mg/dL 12/05/2024 6:34 AM EDT [facility] CALCIUM 8.4(L) 8.5 - 10.5 mg/dL 12/05/2024 6:34 AM EDT [facility] EGFR Non-Race Dependent 74 >=60 ml/min/1.7 3sq.m 12/05/2024 6:34 AM EDT [facility] Comment: Reported eGFR is based on the CKD-EPI 2020 equation that does not use a race coefficient. Blood Venous blood / Unknown 12/05/2024 5:43 AM EDT 12/05/2024 6:01 AM EDT us Hanna Mari MD LAB BLOOD ORDERABLES Final Resu lt [facility] [address] [place] [address], [place] [phone] * (ABNORMAL) CBC auto differential (12/04/2024 4:59 AM EDT) Only the most recent of3 resultswithin the time period is included. WBC 5.3 4 - 11 x10E9/L 12/04/2024 5:34 AM EDT [facility] RBC Count 3.67(L) 3.8 - 5.2 X10E12/L 12/04/2024 5:34 AM EDT [facility] Hemoglobin 11.2(L) 11.7 - 15.5 g/dL 12/04/2024 5:34 AM EDT [facility] Hematocrit 32.7(L) 35 - 47 % 12/04/2024 5:34 AM EDT [facility] MCV 89 80 - 100 fL 12/04/2024 5:34 AM EDT [facility] MCH 30.4 27 - 34 pg 12/04/2024 5:34 AM EDT [facility] MCHC 34.1 32 - 36 g/dL 12/04/2024 5:34 AM EDT [facility] RDW 13.5 11.5 - 15 % 12/04/2024 5:34 AM EDT [facility] Platelet Count 235 150 - 450 X10E9/L 12/04/2024 5:34 AM EDT [facility] MPV 7.5 7 - 12 fL 12/04/2024 5:34 AM EDT [facility] Neutrophils % 52.8 % 12/04/2024 5:34 AM EDT [facility] Lymphocytes % 38.3 % 12/04/2024 5:34 AM EDT [facility] Monocytes % 4.8 % 12/04/2024 5:34 AM EDT [facility] Eosinophils % 3.0 % 12/04/2024 5:34 AM EDT [facility] Basophils % 1.1 % 12/04/2024 5:34 AM EDT [facility] Neutrophils Absolute (A) 2.8 1.5 - 6.6 10*3/uL 12/04/2024 5:34 AM EDT [facility] Lymphocytes Absolute 2.0 1.0 - 3.5 10*3/uL 12/04/2024 5:34 AM EDT [facility] Monocytes Absolute 0.3 0.0 - 0.9 10*3/uL 12/04/2024 5:34 AM EDT [facility] Eosinophils Absolute 0.2 0.0 - 0.4 10*3/uL 12/04/2024 5:34 AM EDT [facility] Basophils Absolute 0.1 0.0 - 0.2 10*3/uL 12/04/2024 5:34 AM EDT [facility] Differential Type AUTOMATED DIFFERENTIAL 12/04/2024 5:34 AM EDT [facility] Blood Venous blood / Unknown 12/04/2024 4:59 AM EDT 12/04/2024 5:22 AM EDT us Hanna Mari MD LAB BLOOD ORDERABLES Final Resu lt [facility] [address] [place] [address], [place] [phone] * (ABNORMAL) Electrolyte panel (12/03/2024 11:56 PM EDT) Only the most recent of5 resultswithin the time period is included. SODIUM 136 134 - 146 mmol/L 12/04/2024 12:41 AM EDT [facility] POTASSIUM 4.4 3.5 - 5.0 mmol/L 12/04/2024 12:41 AM EDT [facility] CHLORIDE 110(H) 98 - 109 mmol/L 12/04/2024 12:41 AM EDT [facility] CARBON DIOXIDE 20(L) 22 - 32 mmol/L 12/04/2024 12:41 AM EDT [facility] ANION GAP 6 5 - 15 mmol/L 12/04/2024 12:41 AM EDT [facility] Blood Venous blood / Unknown 12/03/2024 11:56 PM EDT 12/04/2024 12:13 AM EDT us Flaco Gentile MD LAB BLOOD ORDERABLES Final Resul t Performing Organization Address City/[facility]/ZIP Co de Phone Number [facility] [address] [place] [address], * (ABNORMAL) APTT (12/03/2024 9:55 AM EDT) APTT 25(L) 26 - 37 sec 12/03/2024 10:52 AM EDT [facility] Blood Venous blood / Unknown Port / Unknown 12/03/2024 9:55 AM EDT 12/03/2024 10:14 AM EDT Hanna Mari MD LAB BLOOD ORDERABLES Final Resu lt Performing Organization Address [facility] Co de Phone Number [facility] [address] [place] [address], * TSH with Reflex (12/03/2024 5:25 AM EDT) Pathologist [facility] TSH 3.02 0.49 - 4.67 uIU/mL 12/03/2024 10:33 AM EDT [facility] Blood Venous blood / Unknown Venipuncture / Unknown 12/03/2024 5:25 AM EDT 12/03/2024 5:26 AM EDT Flaco Gentile MD LAB BLOOD ORDERABLES Final Resul t Performing Organization Address City/[facility]/ZIP Co de Phone Number [facility] [address] [place] [address], * (ABNORMAL) Hemoglobin A1c (12/03/2024 5:25 AM EDT) HEMOGLOBIN A1C 13.6(H) 4.4 - 5.6 % 12/03/2024 10:16 AM EDT [facility] Comment: ADA Guidelines Result HgbA1c Normal : less than 5.7 % Prediabetes : 5.7 % to 6.4 % Diabetes : > 6.4 % Use with caution in patients with abnormal hemoglobin variants as the half-life of red blood cells and in vivo glycation rates are affected. EST. AVERAGE GLUCOSE 344 mg/dL 12/03/2024 10:16 AM EDT [facility] Blood Venous blood / Unknown Venipuncture / Unknown 12/03/2024 5:25 AM EDT 12/03/2024 5:26 AM EDT us Flaco Gentile MD LAB BLOOD ORDERABLES Final Resul t [facility] [address] [place] [address], * (ABNORMAL) Comprehensive metabolic panel (12/03/2024 5:25 AM EDT) SODIUM 133(L) 134 - 146 mmol/L 12/03/2024 6:23 AM EDT [facility] POTASSIUM 4.3 3.5 - 5.0 mmol/L 12/03/2024 6:23 AM EDT [facility] CHLORIDE 101 98 - 109 mmol/L 12/03/2024 6:23 AM EDT [facility] CARBON DIOXIDE 21(L) 22 - 32 mmol/L 12/03/2024 6:23 AM EDT [facility] ANION GAP 11 5 - 15 mmol/L 12/03/2024 6:23 AM EDT [facility] BLOOD UREA NITROGEN 21 5 - 23 mg/dL 12/03/2024 6:23 AM EDT [facility] CREATININE 1.40(H) 0.40 - 1.00 mg/dL 12/03/2024 6:23 AM EDT [facility] Comment:METHOD TRACEABLE TO IDMS STANDARD GLUCOSE 640(HH) 65 - 99 mg/dL 12/03/2024 6:23 AM EDT [facility] CALCIUM 8.1(L) 8.5 - 10.5 mg/dL 12/03/2024 6:23 AM EDT [facility] TOTAL PROTEIN 6.0 6.0 - 8.0 g/dL 12/03/2024 6:23 AM EDT [facility] ALBUMIN 3.4 3.2 - 5.3 g/dL 12/03/2024 6:23 AM EDT [facility] ALKALINE PHOSPHATASE 104 39 - 130 U/L 12/03/2024 6:23 AM EDT [facility] AST 11 <=41 U/L 12/03/2024 6:23 AM EDT [facility] ALT 10 <=31 U/L 12/03/2024 6:23 AM EDT [facility] BILIRUBIN,TOTAL 0.4 0.3 - 1.2 mg/dL 12/03/2024 6:23 AM EDT [facility] EGFR Non-Race Dependent 47(L) >=60 ml/min/1.7 3sq.m 12/03/2024 6:23 AM EDT [facility] Comment: Reported eGFR is based on the CKD-EPI 2020 equation that does not use a race coefficient. Blood Venous blood / Unknown Venipuncture / Unknown 12/03/2024 5:25 AM EDT 12/03/2024 5:26 AM EDT Hanna Mari MD LAB BLOOD ORDERABLES Final Resu lt [facility] [address] [place] [address], * CT brain without contrast stroke alert [...]
--- OUTSIDE RECORDS SUMMARY | 2025-01-04 18:22 | XMS_ITS | Continuity of Care Document ---
Author Organization [facility]. Address [address] [place] [address] Phone [phone] Care Team Providers Care Imager Name Role Phone Tona Nielsen PA-C Care Team Information Re ceiver [phone] Family History Date Family Member(s) Observation Comments [...] N ote .Renal Panel 04/29/2024 [facility] [phone] .Albumin 3.2 .Calcium 8.5 .Carbon Dioxide 23 .Chloride 104 .Phosphorus 4.0 .Potassium 4.5 .Sodium 137 .BUN 30 .GFR 37 .Creatinine-LC 1.73 .CBC W/O Differential 04/29/2024 [facility] [phone] .Hematocrit 29.3 .Hemoglobin Blood 9.6 .Platelet Count Blood 289 .Red Blood Count 3.10 RDW 13.4 .White Blood Count 6.78 MCH (Corpuscular Hemoglobin) 31.0 MCHC (Corpuscular Hemog Conc) 32.8 MPV 9.7 MCV (Corpuscular Volume) 94.5 .Renal Panel 04/04/2024 [facility] [phone] .Albumin 3.2 .Calcium 8.4 .Carbon Dioxide 28 .Chloride 105 .Phosphorus 3.8 .Potassium 4.0 .Sodium 141 .BUN 20 .GFR 50 .Creatinine-LC 1.34 .CBC W/O Differential 04/04/2024 [facility] [phone] .Hematocrit 26.7 .Hemoglobin Blood 8.9 .Platelet Count Blood 256 .Red Blood Count 2.86 RDW 13.1 .White Blood Count 7.11 MCH (Corpuscular Hemoglobin) 31.1 MCHC (Corpuscular Hemog Conc) 33.3 MPV 9.6 MCV (Corpuscular Volume) 93.4 .Renal Panel 03/29/2024 [facility] [phone] .Albumin 3.0 .Calcium 8.7 .Carbon Dioxide 20 .Chloride 108 .Phosphorus 4.1 .Potassium 4.8 .Sodium 137 .BUN 36 .GFR 28 .Creatinine-LC 2.19 .CBC W/O Differential 03/29/2024 [facility] [phone] .Hematocrit 28.0 .Hemoglobin Blood 8.8 .Platelet Count [...]
--- OUTSIDE RECORDS SUMMARY | 2025-01-04 18:23 | XMS_ITS | Encounter Summary ---
Author Organization [facility] Address [facility] [place] [address] Care Team Providers Care Job Superintendent Name Role Phone Unavailable Primary Care Provider Unavailabl e Reason for Visit * Reason Onset Date Comments Medication Refill 12/19/2024 Encounter Details Date Type Department Care Team (Late st Contact Info) Description 12/19/2024 Refill [facility] Pain Management [address] [place] [address] Morgan Velez, [address] [place] [address] Chronic pain syndrome; DDD (degenerative disc disease), lumbar; Lumbar radiculopathy Social History Tobacco Use Types Packs/Day Years Used Date Smoking Tobacco: Former Cigarettes 1 19.1 S tarted: 09/30/2014 Passive Smoke Exposure: Current Smokeless Tobacco: Never Comments:Vaping 6 mg nicotin e Alcohol Use Standard Drinks/Week Comments No 0 (1 standard drink = 0.6 oz pur e alcohol) OASIS A1250: Transportation Answer Date Recorded Lack of Transportation (Medical) No 04/22/2023 Lack of Transportation (Non-Medical) No 04/22/2023 Patient Unable or Declines to Respond No 04/22/2023 [facility] Utilities Answer Date Recorded In the past 12 months has th e electric, gas, oil, or water company [...] place to sleep or slept in a prison (including now)? Yes 05/11/2023 Housing Stability Vital Sign Answer Chacorta e Recorded In the last 12 months, was t here a time when you were not able to pay the mortgage or rent on time? No 04/27/2024 In the past 12 months, how m any times have you moved where you were living? 1 04/27/2024 At any time in the past 12 m [facility], were you homeless or living in a prison (including now)? No 04/27/2024 Comments No Sex [...]
--- OUTSIDE RECORDS SUMMARY | 2025-01-04 18:23 | XMS_ITS | Encounter Summary ---
Author Organization [facility] Address [facility] [place] [address] Care Team Providers Care Senior Analytical Chemist Name Role Phone Enrique Hebert DO Primary Care Provider [phone] No, Physician Primary Care Provider Unavailabl Marcia Espinoza RN Unavailable Unavailable Marcia Reynoso RN Unavailable Unavailable Marcia Reynoso RN Unavailable Unavailable Marcia Reynoso RN Unavailable Unavailable Marcia Reynoso RN Unavailable Unavailable Marcia Reynoso RN Unavailable Unavailable Marcia Reynoso RN Unavailable Unavailable Swapnil Hooks Unavailable Unavailable Radha Davalos RD Unavailable Unavailable Tona Nielsen PA-C Primary Care Provider [phone] Encounter Details Date Type Department Care Team (Late st Contact Info) Description 03/31/2023 [facility] [address] [place], [place] [id number] Danii Rincon, RN MSN Social History Tobacco [...] place to sleep or slept in a penitentiary (including now)? Yes 01/14/2023 Comments No Sex and Gender Information Value Date Recorded Sex Assigned at Not on file Legal Sex Female 3:26 PM EDT Gender Identity Female 06/03/2020 5:59 PM EST Sexual Orientation Straight 06/03/2020 5: 59 PM EST documented as of this encounter Miscellaneous Notes * Quick Note - Danii Rincon RN MSN - 03/31/2023 10:44 AM EST [facility] agency: Accepted or Pending Name of agency: (if [facility], include region) [facility] can accept. [facility] created for the following services: [or waiting for ____ (i.e wound care)] Yes, SN/PT/OT/aide Verify the demographics (residential address) [address] [place] [address] What is the primary number to reach you? [phone] Who is your family physician/primary care physician? [phone]: call from Rafaela/PCP office stating Dr. Hebert will follow orders. Do you have a caregiver and/or teachable caregiver (list relationship, name & phone #)? Shi Jean Baptiste (Mother) [phone] (Home Phone) Has the patient been added to capacity board/tracking sheet? ([facility] only) Velia without limitations Estimated Discharge Date [...] documented as of this encounter Care Teams Senior Analytical Chemist Relationship Specialty Start Date End Date Enrique Hebert DO [address] [place] [address] PCP - General Primary Care 03/30/23 04/29/23 No, Physician [facility] PCP - General 04/30/23 05/05/23 Tona Nielsen PA-C [facility] [place] [address] PCP - General Internal Medicine 05/06/23 11/14/24 Marcia Reynoso, oil refinery operatorRnfa 05/14/23 06/23/23 Marcia Reynoso, oil refinery operatorRnfa 07/09/23 07/13/23 Marcia Reynoso, oil refinery operatorRnfa 07/24/23 07/28/23 Marcia Reynoso, oil refinery operatorRnfa 07/30/23 08/05/23 Marcia Reynoso, oil refinery operatorRnfa 09/21/23 09/23/23 Marcia Reynoso, oil refinery operatorRnfa 09/29/23 10/01/23 Marcia Reynoso, oil refinery operatorRnfa 10/16/23 10/21/23 Swapnil Hooks Community Health Worker Case Management 01/27/2403/10 Radha Davalos, JULI Dietitian Dietitian/Nutritionis t 02/04/24 02/16/24 documented as of this encounter
--- OUTSIDE RECORDS SUMMARY | 2025-01-04 18:23 | XMS_ITS | Encounter Summary ---
Author Organization [facility] enter Address [address] [place] [address] Care Team Providers Care Hand Inspector Name Role Phone Cherelle Fierro MD Unavailable [phone] Geo Leach MD Primary Care Provider [phone] George Rob DO Unavailable Unavailable Encounter Details Date Type Department Care Team (Late st Contact Info) Description 02/02/2017 Orders Only Cardiovascular Imaging Lab [facility] [address] [place] [phone] Sushila Armendariz RN SSS (sick sinus [...] Description 03/03/2025 8:00 AM EDT Office Visit Medical Detailist Center [facility] [address] [place] [address] Geo Leach MD [address] [place] [phone] Scheduled Orders Name Type Priority Associated Diagnoses Orde r Schedule CHEM 7 (LYTES,BUN,CREA,GLUC) Lab Routine SSS (sick sinus syndrome) ([facility]) Expected: 02/02/2017, Expires: 02/02/2018 CBC,PLATELETS Lab Routine SSS (sick sinus syndrome) ([facility]) Expected: 02/02/2017, Expires: 02/02/2018 PROTIME-INR Lab Routine SSS (sick sinus syndrome) ([facility]) Expected: 02/02/2017, Expires: 02/02/2018 TYPE AND CROSS - PREADMISSION Blood Bank Routine SSS (sick sinus syndrome) ([facility]) Expected: 02/02/2017, Expires: 02/02/2018 documented as of this encounter Visit Diagnoses Diagnosis SSS (sick sinus syndrome)- Primary Sinoatrial node dysfunction documented in this encounter Care Teams Hand Inspector Relationship Specialty Start Date End Date Geo Leach MD [address] [place] [address] PCP - General Clinical Cardiac Electrophysiology 09/23/16 Cherelle Fierro MD [address] [place] [address] Family Medicine 01/30/12 George Rob DO [address] [place] [address] Consulting Physician Family Medicine 03/20/17 documented as of this encounter
--- OUTSIDE RECORDS SUMMARY | 2025-01-04 18:23 | XMS_ITS | Encounter Summary ---
Author Organization [facility] tem Address [id number] [address] [place] [address] Care Team Providers Care Outbound Sales Consultant Name Role Phone Radha Dias DO Primary Care Provider [phone] Encounter Details Date Type Department Care Team (Late st Contact Info) Description 03/07/2022 Telephone [facility] [address] [place] [id number] Rachell Roger ARRT Social History Tobacco Use [...] of progress towards goal: safe discharge to [facility] with Home Care and daughter, friend support documented as of this encounter Visit Diagnoses Not on filedocumented in this encounter Additional Health Concerns Infection Onset Date Last Indicated Resolved Time Enteric Rule-Out Comment:cancelled 03/06/2022 03/06/2022 03/08/2022 4:18 PM E DT documented as of this encounter Care Teams Outbound Sales Consultant Relationship Specialty Start Date End Date Radha Dias DO PCP - General Family Medicine 03/10/22 12/02/24 documented as of this encounter
--- OUTSIDE RECORDS SUMMARY | 2025-01-04 18:23 | XMS_ITS | Clinical Summary ---
Author Organization [facility] Address [address] [place] [address] [place] [address] Care Team Providers Care Sap Security Consultant Name Role Phone Cherelle Fierro MD Unavailable [phone] Geo Leach MD Primary Care Provider [phone] George Rob DO Unavailable Unavailable Allergies Active Allergy Reactions Criticality Noted Date Comments *Adhesive Tape 07/15/2017 Codeine And Related Aggressive Behavior Medium 008 Propoxyphene N-Apap Nausea and Vomiting Medium 008 Dye Longterm Red 3 (Erythrosine) 01/21/2017 IV DYE shuts [...] by mouth daily. 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 Lead N/A: Heart [employer] PACER 01/20/2019 5076-45 / [id number] / Pacer Dual Mri Advisa Chamber - [id number] Implanted:Qty : 1 on 03/30/2017 by Fatmata Jose MD at [facility] Pacemaker Left: Chest [employer] PACER 09/05/2018 [id number] / [id number] / Explanted Type Area Retail Management Trainee Device Identifier Shelf Expiration Date Model / Serial / Lot Lead St Justo 2087tc/46 - [id number] Implanted:Qty: 1 on 01/29/2012 by Ashish Long MD, PhD at [facility] Explanted:Qty: 1 on 03/30/2017 by Fatmata Jose MD at [facility] Lead ST JUSTO MED[employer] 11/21/20142087TC/46 / [id number] / Pacer Biotronik [id number] - [id number] Implanted:Qty: 1 on 01/29/2012 by Ashish Long MD, PhD at [facility] Explanted:Qty: 1 on 03/30/2017 by Geo Leach MD at [facility] Pacemaker N/A: Chest HIST BIOTRONIK 04/24/2013 [id number] / [id number] / Description:Device is set at [employer] Implantable Livestock Commission Agent Me - [id number] Explanted:Qty: 1 on 01/29/2012 by Ashish Long MD, PhD at [facility] MEDTRONIC PACER 9529 / [id number] / Procedures Procedure Name Priority Date/Time [...] 4:01 AM EST us Hiwot A Elmo URBAN DESIGNER-APPLICATIONS ARCHITECT CHEMISTRY ORDERABLES Final Result LAB, [facility] [address] [place] [address] * (ABNORMAL) HEMOGLOBIN A1C (03/13/2017 2:47 PM EDT) HEMOGLOBIN A1C 10.2(H) 4.7 - 5.6 % LAB, [facility] Estimated Average Glucose 246 mg/dL [facility], [facility] 03/13/2017 2:47 PM EDT 03/13/2017 3:42 PM EDT Dannielle Palma URBAN DESIGNER-APPLICATIONS ARCHITECT HEMATOLOGY ORDERABLES Fi nal Result Performing Organization Address [facility] de Phone Number [facility] [address] [place] [address] * (ABNORMAL) LIPID PANEL (06/30/2008 10:11 AM [...] Final Res ult Performing Organization Address City/[facility]/ZIP Co de Phone Number [facility] [address] [place] [address] * POCT URINE MICROALBUMIN (MICROAL/CR/AL:CR) (06/02/2008 9:10 AM EST) POCT URINE MICROALBUMIN 30 mg CREATININE, URINE POCT 200 mg 10 - 300 mg/dL ALBUMIN/CREATINI NE RATIO, URINE POCT 30 mg <=30 mg albumin/g creatinine Kristi Wolf DO POINT OF CARE TESTING Edited from Last 3 Months or Most Recently Relevant to Health Maintenance Insurance [facility] Plan Advance Directives For more information, please contact: [phone] (7:30 AM - 6PM [facility], Thursday-Thursday) * Full Code (Latest Code Status on File) Date Activated Date Inactivated Comments 03/30/2017 9:46 AM 04/01/2017 3:40 PM Care Teams Sap Security Consultant Relationship Specialty Start Date End Date DecGeo morales MD [address] [place] [address], [address] [address] PCP - General Clinical Cardiac Electrophysiology 09/23/16 Cherelle Fierro MD [address] [facility] [place], [facility] [address] [place] [address] Family Medicine 01/30/12 George Rob, [address] [facility] [place], [facility] [address] [place] [address] Consulting Physician Family Medicine 03/20/17
--- OUTSIDE RECORDS SUMMARY | 2025-01-04 18:23 | XMS_ITS | Patient Health Record ---
Author Organization [facility] [place] Address [address] [place] [address] Care Team Providers Care Cultural Centre Manager Name Role Phone Mario Baum DO Primary Care Provider Juanjo Snow Unavailable [phone] Reason For Referral No Information Problems Problem Type SNOMED Code ICD Code Onset Dates Problem Status W/U Status Risk Notes Problem Peripheral venous insufficiency (56050954) Venous insufficiency (chronic) (peripheral) (I87.2) Active confirmed Problem Chronic ulcer of foot (756571334) Non-pressure chronic ulcer of other part of left foot with fat layer exposed (L97.522) Active confirmed Problem Diabetic peripheral neuropathy (891564917) Diabetic peripheral neuropathy (E11.42) Active confirmed Problem Hypertension (06770240) Hypertension (I10) Active confirmed Problem Anxiety (96608960) Anxiety (F41.9) Active confirmed Problem Type 2 diabetes mellitus (95390872) Type 2 diabetes mellitus (E11.9) Active confirmed Problem Long-term current use of insulin (979017017) Current use of insulin (Z79.4) Active confirmed Encounters Encounter Location Date Provider Diagnosis [facility] [address] [place] [address] [place] [address] 08/09/2024 Juanjo Amaro Plan Of Treatment No Information Insurance Providers Payer Name Payer Address Payer Phone Subscriber Number Group Number Insured Name Patient Relationship to Insured Coverage Start Date Coverage End Date [employer] [place] [employer] [address] [place] [address] [id number] Lisa Jean Baptiste Self - patient is the insured 3
--- OUTSIDE RECORDS SUMMARY | 2025-01-04 18:23 | XMS_ITS | Encounter Summary ---
Author Organization [employer] Address [id number] [address] [place] [address] Care Team Providers Care Scroll Machine Operator Name Role Phone Radha Dias DO Primary Care Provider [phone] Reason for Referral * Diagnostic Imaging (Routine) - Closed Specialty Diagnoses / Procedures Referred By Contac t Referred To Contact Radiology Diagnoses Pain Procedures CT angiogram head [facility] [address] [place] [phone] Phone: tel: fax: Referral ID Status Reason Start Date Expiration Date Visits Re quested Visits Authorized [id number] Closed 03/05/2022 03/05/2023 1 1 * Diagnostic Imaging (Routine) - Closed Specialty Diagnoses / Procedures Referred By Contac t Referred To Contact Radiology Diagnoses Neck pain Procedures CT angiogram carotid [facility] [address] [place] [address] Phone: tel: fax: Referral ID Status Reason Start Date Expiration Date Visits Re quested Visits Authorized [id number] Closed 03/05/2022 03/05/2023 1 1 * Diagnostic Imaging (Routine) - Closed Specialty Diagnoses / Procedures Referred By Contac t Referred To Contact Radiology Diagnoses Low back pain, non-specific Procedures CT lumbar spine without contrast [facility] [address] [place] [address] Phone: tel: fax: Referral ID Status Reason Start Date Expiration Date Visits Re quested Visits Authorized [id number] Closed 03/05/2022 03/05/2023 1 1 * Diagnostic Imaging (Routine) - Closed Specialty Diagnoses / Procedures Referred By Richa t Referred To Contact Radiology Diagnoses Pain Procedures CT brain without contrast [facility] [address] [place] [address] Phone: tel: fax: Referral ID Status Reason Start Date Expiration Date Visits Re quested Visits Authorized [id number] Closed 03/05/2022 03/05/2023 1 1 Encounter Details Date Type Department Care Team (Late st Contact Info) Description 03/05/2022 Orders Only [facility] [address] [place] [address] Transcribe, Orders Support User Pain [...] documented as of this encounter Care Teams Scroll Machine Operator Relationship Specialty Start Date End Date Radha Dias DO PCP - General Family Medicine 03/10/22 12/02/24 documented as of this encounter
--- OUTSIDE RECORDS SUMMARY | 2025-01-04 18:23 | XMS_ITS | Encounter Summary ---
Author Organization [facility] Address [facility] [place] [id number] [address] [place] [address] Care Team Providers Care Payroll Machine Operator Name Role Phone DiasRadha DO Primary Care Provider [phone] Encounter Details Date Type Department Care Team (Late st Contact Info) Description 03/05/2022 Orders Only [facility] [address] [place] [phone] Velia Wilkinson MD Social History Tobacco Use [...] documented as of this encounter Care Teams Payroll Machine Operator Relationship Specialty Start Date End Date Radha Dias DO PCP - General Family Medicine 03/10/22 12/02/24 documented as of this encounter
--- OUTSIDE RECORDS SUMMARY | 2025-01-04 18:23 | XMS_ITS | Clinical Summary ---
Author Organization [facility] Address [address] [place] [address] Care Team Providers Care Pr Specialist Name Role Phone Unavailable Primary Care Provider [...] 1 each 12/03/19 24 Active Dexcom G6 Anime Designer MiscIndications:T ype 2 diabetes mellitus with diabetic [...] polyneuropathy, with long-term current use of insulin ([facility]) Inject up to 150 units once daily [...] serial chem Strict I/O No need for JOB SUPERINTENDENT yet. Will continue to watch for signs that JOB SUPERINTENDENT is indicated. Will follow along with you [...] Type Department Care Team Description 12/19/2024 Refill [facility] [place] [address] Morgan Velez, Chronic pain syndrome; DDD (degenerative disc disease), lumbar; Lumbar radiculopathy 11/21/2024 Refill [facility] [place] [address] Morgan Velez DO DDD (degenerative disc disease), lumbar; Lumbar radiculopathy; Chronic pain syndrome 10/11/2024 Orders Only [facility] [place] [address] Morgan Velez DO 10/06/2024 Refill [facility] [place] [address] Morgan Velez, Chronic pain syndrome from Last 3 Months Immunizations Immunization Administration Dates Next Due INFLUENZA IIV3 5YO OR > FLUZONE [id number] 05/06/2023 ,05/06/2023 INFLUENZA IIV4 6MO OR > FLUARIX/FLUZONE/AFLURIA [id number] 05/06/2023,06/05/2020 Influenza Whole 05/28/2015 Influenza, Injectable, Quadr [...] Unable or Declines to Respond No 04/22/2023 [facility] Utilities Answer Date Recorded In the past [...] place to sleep or slept in a group home (including now)? Yes 05/11/2023 Housing Stability Vital Sign Answer Chacorta e Recorded In the last 12 months, was t here a time when you were not able to pay the mortgage or rent on time? No 04/27/2024 In the past 12 months, how m any times have you moved where you were living? 1 04/27/2024 At any time in the past 12 m [facility] were you homeless or living in a group home (including now)? No 04/27/2024 Comments No Sex [...] 09/18/2024 12:58 PM EDT Plan of Treatment Health Maintenance [...] 3:40 PM EDT Encounter for health-related screening HM DIABETES FOOT EXAM Routine 04/14/2023 from Last 3 Months or Most Recently Relevant to Health Maintenance Results * (ABNORMAL) BMP (09/22/2024 3:11 PM EDT) Sodium 130(L) 135 - 145 mmol/L 09/22/2024 3:44 PM EDT [facility] Potassium 4.0 3.5 - 5.1 mmol/L 09/22/2024 3:44 PM EDT [facility] Chloride 97(L) 98 - 108 mmol/L 09/22/2024 3:44 PM EDT [facility] Bicarbonate 17(L) 21 - 32 mmol/L 09/22/2024 3:44 PM EDT [facility] Anion Gap 20 10 - 20 mmol/L 09/22/2024 3:44 PM EDT [facility] Glucose 468(HH) 65 - 99 mg/dL 09/22/2024 3:44 PM EDT [facility] BUN 30(H) 8 - 25 mg/dL 09/22/2024 3:44 PM EDT [facility] Creatinine 1.71(H) 0.40 - 1.10 mg/dL 09/22/2024 3:44 PM EDT [facility] eGFR 37(L) >=60 mL/min/1.7 3 m2 09/22/2024 3:44 PM EDT [facility] Comment:Estimated GFR was ca lculated using the 2020 CKD-EPI creatinine equation. BUN/Creatinine Ratio 17.5 10.0 - 20.0 09/22/2024 3:44 PM EDT [facility] Calcium 8.9 8.4 - 10.2 mg/dL 09/22/2024 3:44 PM EDT [facility] Blood BLOOD SPECIMEN / Unknown Venipuncture / Unknown 09/22/2024 3:11 PM EDT 09/22/2024 3:19 PM EDT Narrative [facility] - 09/22/2024 3:44 PM EDT [facility] has implemented the eGFR calculation approach that does not have a coefficient for race that conforms to the NKF-ASN Task Force Recommendations. us Mario Pitts MD LAB BLOOD ORDERABLES Ioana l Result [facility] [address] [place] [address] * Hepatitis C Ab with Reflex to HCV Virus Quantitation (08/02/2024 3:40 PM EDT) Hepatitis C Ab ([facility]) NON-REACT CORI NON-REACT CORI [facility] Comment: HCV antibody was non-reactive. There is no laboratory evidence of HCV infection. In most cases, no further action is required. However, if recent HCV exposure is suspected, a test for HCV RNA (test code 33356) is suggested. For additional information please refer to http://[employer]/faq/RGW35j5 (This link is being provided for informational/ educational purposes only.) Blood BLOOD SPECIMEN / Unknown 08/02/2024 3:40 PM EDT 08/02/2024 3:41 PM EDT Tona Nielsen PA-C LAB BLOOD ORDERABLES Ioana l Result Performing Organization Address [facility]/ZIP Co de Phone Number [facility] [address] [place] [address], [place] * HIV Antibody (HIV1/HIV2) (08/02/2024 3:40 PM EDT) [facility] Hiv Ag/Ab 4Th Gen ([facility]) NON-REACT CORI NON-REACT CORI [facility] Comment: HIV-1 antigen and HIV-1/HIV-2 antibodies were [...] purpose. For additional information please refer to http://[employer]/faq/AAF040 (This link is being provided for informational/ educational purposes only.) The performance of this assay has not been clinically validated in patients less than 2 years old. Blood BLOOD SPECIMEN / Unknown 08/02/2024 3:40 PM EDT 08/02/2024 3:41 PM EDT Tona Nielsen PA-C LAB BLOOD ORDERABLES Ioana l Result Performing Organization Address [facility]/ZIP Co de Phone Number [employer] [address] [place] [address], [place] * (ABNORMAL) Hemoglobin A1c (08/02/2024 3:40 PM EDT) Hemoglobin A1C ([facility]) 10.6(H) <5.7 % of total Hgb [facility] Comment: For someone without known diabetes, a [...] Tona Nielsen PA-C LAB BLOOD ORDERABLES Ioana horn Result [facility] [place] [address] [place] [address], [place] * DIABETES FOOT EXAM (04/14/2023) 04/14/2023 Historical Provider HEALTH MAINTENANCE Final Result from Last 3 Months or Most Recently Relevant to Health Maintenance Insurance [employer] [employer] Advance Directives For more information, please contact: [phone] Documents on File Type Date Recorded Patient Waste Treatment Operator Expl anation Advance Directives and Livin g [...]
--- OUTSIDE RECORDS SUMMARY | 2025-01-04 18:33 | XMS_ITS | CCD ---
Author Organization [facility] CliniSyde Care Team Providers Care Educator Senior Clinical Name Role Phone Cem Mario Unavailable Unavailable KEYLA PRATT Unavailable Unavailable CEM MARIO Unavailable Unavailable CEM MARIO Unavailable Unavailable TIMOTHY NUÑEZ Unavailable Unavailable BEN DE JESUS Unavailable Unavailab le CEM MARIO Unavailable Unavailable PHYSICAN, NONE Admitting Unavailable DANIEL GALLEGOS Attending Unavailable PHYSICAN, NONE Primary Care Unavailable CÉSAR RICE Consulting Unavailable POLO PORTER Consulting Unavailable DANIEL GALLEGOS Consulting Unavailable PRESTON ESPINO Consulting Unavailable Shameka Baum Primary Care Physician Unavail able Shameka Baum Attending Physician UnavailAMBROCIO Kaufman Admitting Unavailable AMBROCIO CHAVEZ Attending Unavailable SELF, REFERRED Referring Unavailable CALVIN HEADLEY Primary Care Unavailable System, Provider Not In Primary Care Provider Un available Italo Headley Primary Care Physician [phone] Sarita Feliz Unavailable Unavailable Breanna Gu Primary Care Physician Winnie [place] Unavailable Unavailable Herlinda June Unavailable Cem Mario DO Primary Care Provider CEM MARIO Primary Care Unavailable ANTOINE SOSA Attending Unavailable Radha Dias Primary Care Physician [phone] Pool Heath Primary Care Physician [phone] LOLI Franco Primary Care Provider DO Jacob Farfan Emergency Provider [phone] DO Ezekiel Mathew Admit Provider DO Ezekiel Mathew Attending Provider MD Jeana Martini Attending Provider [phone] MD Lawrence Kim Other Provider LUPE Castillo Other Provider MD Shameka Romero Other Provider LOLI Franco Primary Care Provider DO Jacob Farfan Emergency Provider [phone] DO Ezekiel Mathew Admit Provider MD Lawrence Kim Other Provider LUPE Castillo Other Provider MD Shameka Romero Other Provider MD Jeana Martini Attending Provider LAURENT FRANCO Primary Care Physician Shameka Romero Unavailable MD Shameka Romero Attending Provider [phone] Unavailable Primary Care Provider Unavailabl e PROVIDER, UNKNOWN Admitting Unavailable PRESTON LUGO Referring Unavailable PROVIDER, UNKNOWN Attending Unavailable PROVIDER, UNKNOWN Admitting Unavailable HEATHER RAJPUT Attending Unavailable PRESTON LUGO Referring Unavailable YESENIA GRACIA Admitting Unavailable YOAN, DR POLO Lazcano Consulting Unavailable KALLIE, DR AGUILERA Primary Care Unavailable YESENIA GRACIA Attending Unavailable POOL ALMANZA Consulting Unavailab RAFAELA Hernandez Attending Unavailable KALLIE, DR AGUILERA Primary Care Unavailable MACKINAW, DR KO Bravo Consulting Unavailable KWADWO .RAFAELA Admitting Unavailable KHADAR GEORGE Consulting Unavailtheo REYES, HOLGER Consulting Unavailable KIRK CABALLERO Consulting Unavailable KWADWO Pollock, RAFAELA Consulting Unavailable KALLIE, DR AGUILERA Primary Care Unavailable DR AUGUSTINE WHITTEN Admitting Unavailable DR AUGUSTINE WHITTEN Attending Unavailable DR AUGUSTINE WHITTEN Consulting Unavailable YOAN, DR POLO Lazcano Consulting Unavailable CARISA STILES Consulting Unavailable POLO ROLON Consulting Unavailable LISA HELM Consulting Unavailable KO HANSON Consulting Unavailable VELIA NAGEL Consulting Unavailable LAWRENCE HESTER Consulting Unavailable PETAR QUEZADAARET Consulting Unavailable ROBB ., YESENIA Consulting Unavailable [...] Consulting Unavailable ROBB ., YESENIA Consulting Unavailable KLYM, MONIQUE Consulting Unavailable SISTER, EZEQUIEL Consulting Unavailable DIAS, AMY Primary Care Unavailable LINSEY, CARISA Consulting Unavailable LINSEY, CARISA Admitting Unavailable LINSEY, CARISA Attending Unavailable AHDOOT, WENDIE Consulting Unavailable ROBB ., YESENIA Admitting Unavailable ROBB ., YESENIA Attending Unavailable MISC, DR AGUILERA Primary Care Unavailable LINSEY, CARISA Consulting Unavailable AHDOOT, WENDIE Consulting Unavailable POLO ROLON Consulting Unavailable ROBB ., YESENIA Consulting Unavailable LINSEY, CARISA Consulting Unavailable LINSEY, CARISA Admitting Unavailable LINSEY, CARISA Attending Unavailable MISC, DR AGUILERA Primary Care Unavailable CHAYA, JUAN Consulting Unavailable VEE SEWELL Consulting Unavailable MISC, DR AGUILERA Primary Care Unavailable HAY ., DR JONES Admitting Unavailable HAY ., DR JONES Attending Unavailable HAY ., DR JONES Consulting Unavailable MISC, DR AGUILERA Primary Care Unavailable HAY ., DR JONES Admitting Unavailable LAMB, DR LAURA Lazcano Consulting Unavailable HAY ., DR JONES Attending Unavailable HAY ., DR JONES Consulting Unavailable ED POND Consulting Unavailable MISC, DR AGUILERA Primary Care Unavailable MEDARDO, DR TIMBO Harding Admitting Unavailabl e DURAN ., MR SHAMEKA Consulting Unavailable MEDARDO, DR TIMBO Harding Attending Unavailabl e HAY ., DR JONES Admitting Unavailable DIAS, RADHA Primary Care Unavailable HAY ., DR JONES Attending Unavailable HAY ., DR JONES Consulting Unavailable LINSEY, CARISA Consulting Unavailable DIAS, RADHA Primary Care Unavailable MARKER ., DR BORDEN Admitting Unavailable MARKER ., DR BORDEN Attending Unavailable MARKER ., DR BORDEN Consulting Unavailable TROTTI, GIROLAMO Consulting Unavailable ZIEBER, DR POLO Lazcano Consulting Unavailable MISC, DR AGUILERA Primary Care Unavailable HAY ., DR JONES Admitting Unavailable HAY ., DR JONES Attending Unavailable HAY ., DR JONES Consulting Unavailable MARKER ., DR BORDEN Attending Unavailable MARKER ., DR BORDEN Consulting Unavailable MISC, DR AGUILERA Primary Care Unavailable MARKER ., DR BORDEN Admitting Unavailable POLO ROLON Consulting Unavailable LAWRENCE COOPER Unavailable MISC, DR AGUILERA Primary Care Unavailable HAY ., DR JONES Attending Unavailable HAY ., DR JONES Admitting Unavailable HAY ., DR JONES Consulting Unavailable GRECHNY .KHADAR Consulting Unavailabl e MISC, DR AGUILERA Primary Care Unavailable HAY ., DR JONES Admitting Unavailable HAY ., DR JONES Attending Unavailable KO CHAVEZ Consulting Unavailable MARISEL MARY Consulting Unavailable JULIA THOMAS Attending Unavailable MISC, DR AGUILERA Primary Care Unavailable JULIA THOMAS Admitting Unavailable System, Provider Not In Primary Care Provider Un available BREANNA BOLIVAR Consulting Unavailable BRIDGER GARNER Attending Unavailab le BRIDGER GARNER Admitting Unavailab le SYSTEM, PROVIDER NOT IN Primary Care Unavaila ble System, Provider Not In Primary Care Provider Un available [facility] Primary Care Provider [facility] Primary Care Unavailable XIMENA RINCON Attending Unavailable [facility] Primary Care Provider No, Physician Primary Care Provider Unavailtheo Pelayo PA-C, Stephany Noriega Primary Care Provider Angeles ELDER, Marcia Unavailable Unavailable Doctor, No Referring Unavailable Doctor, No Primary Care Unavailable Idalia Bruner Attending Unavailable Idalia Bruner Consulting Unavailable Angeles ELDER, Marcia Unavailable Unavailable Cherelle Fierro MD Unavailable Lexy Leach MD Primary Care Provider Cem Mario DO Unavailable Angeles ELDER, Marcia Unavailable Unavailable Angeles ELDER, Marcia Unavailable Unavailable Jacob Damon Admitting Unavailable Juliette PIZANO Attending Unavailable Judy, Lawrence S Consulting Unavailable Sagar Kim Lawrence S Consulting Unavailable Blank, Lawrence S Consulting Unavailable Blank, Lawrence S Consulting Unavailable Blank, Lawrence S Consulting Unavailable Blank, Lawrence S Consulting Unavailable Blank, Lawrence S Consulting Unavailable Blank, Lawrence S Consulting Unavailable Blank, Lawrence S Consulting Unavailable Blank, Lawrence S Consulting Unavailable Maico Hooksolas R Unavailable Unavailable Radha Davalos RD Unavailable Unavailable Jessee, Swapnil R Unavailable Unavailable [facility] Primary Care Unavailable HARSHAD RIZZO Referring Unavailable STEPHANY PELAYO Primary Care Unavailable HARSHAD RIZZO Referring Unavailable Stephany Pelayo PA-C Primary Care Provider Unavailable Primary Care Provider Unavailtheo Finklocatraheem STEVENS, Natalia Provider Primary Care Provi arlene Jim Velez MD Unavailable SOTO BOX Attending Unavailable Doctor, No Primary Care Provider UnavailVerena Bassett CNP Emergency Provider Doctor, No Consulting Unavailable Doctor, No Primary Care Unavailable Verena Kuhn Attending Unavailable Stephany Pelayo PA-C Primary Care Provider CARISA STILES Referring Unavailable LARISSA JENKINS Admitting Unavailable MAYE ORTIZ Attending Unavailable JUAN F NAVARRO Referring Unavailable BROJUA NC GARDUNO Referring Unavailable BRO SAMQUINTEN Referring Unavailable ELISABETH FOWLER Referring Unavailable YURY SHAH Referring Unavailable STEPHANY PELAYO Primary Care Unavailable JIM VELEZ Attending STEPHANY Seth Attending Unavailable STEPHANY PELAYO Primary Care Unavailable STEPHANY PELAYO Attending Unavailable STEPHANY PELAYO Primary Care Unavailable ROSARIO SANCHEZ Attending UnavailSTEPHANY Triana Primary Care Unavailable STEPHANY PELAYO Attending Unavailable JIM VELEZ Attending STEPHANY Seth Primary Care Unavailable JIM VELEZ Attending STEPHANY Seth Primary Care Unavailable STEPHANY PELAYO Primary Care Unavailable JIM VELEZ Attending STEPHANY Seth Primary Care Unavailable SAHARA SANCHEZ Attending Unavailable JIM VELEZ Attending STEPHANY Seth Primary Care Unavailable STEPHANY PELAYO Primary Care Unavailable MIHAI ELIZALDE Attending Unavailab STEPHANY Graham Attending Unavailable STEPHANY PELAYO Primary Care Unavailable STEPHANY PELAYO Attending Unavailable STEPHANY PELAYO Primary Care Unavailable STEPHANY PELAYO Primary Care Unavailable JIM VELEZ Attending STEPHANY Seth Primary Care Unavailable RAFAELA MEDRANO Attending Unavailable STEPHANY PELAYO Attending Unavailable GITA, STEPHAYN NORIEGA Referring Unavailable GITA, STEPHANY NORIEGA Primary Care Unavailable MCCMANUELA, STEPHANY NORIEGA Primary Care Unavailable GITA, STEPHANY NORIEGA Attending Unavailable GITA, STEPHANY NORIEGA Primary Care Unavailable GITA, STEPHANY NORIEGA Referring Unavailable AGUSTIN, JIM WONG Attending STEPHANY Seth Admitting Unavailable GITA, STEPHANY NORIEGA Primary Care Unavailable GITA, STEPHANY NORIEGA Referring Unavailable AGUSTIN, JIM WONG Attending STEPHANY Seth Admitting Unavailable GITA, STEPHANY NORIEGA Primary Care Unavailable GITA, STEPHANY NORIEGA Referring Unavailable DONESAHARA RODRIGUEZ Attending Unavailable GITA, STEPHANY NORIEGA Attending Unavailable GITA, STEPHANY NORIEGA Primary Care Unavailable Cem Mario DO Unavailable Unavailable JESSICA ROMEO Attending Unavailable STEPHANY PELAYO Referring Unavailable LEXY LEACH Primary Care Unavailable GITA, STEPHANY NORIEGA Primary Care Unavailable STEFANIE JORGENSEN Attending Unavaila harpal PELAYO, STEPHANY NORIEGA Primary Care Unavailable AMANDA GREENFIELD Attending Unavailable GITA, STEPHANY NORIEGA Primary Care Unavailable LAWSON, JUWAN FOWLER Admitting Unavailable [facility] Consulting RUTHY Schmitz Attending Unavailable SHAMEKA CASTILLO Consulting Unavailable MALCOLM LANE Attending Unavailable STEPHANY PELAYO Primary Care Unavailable SHAMEKA CASTILLO Consulting Unavailable HARSHAD RIZZO Admitting Unavailable [facility] Consulting Annavakayy alarcon JUDY, SILESHKayy ADMASSU Admitting Unavailab STEPHANY Graham Primary Care Unavailable [facility] Consulting Unavai labivan RIZZO HARSHAD MARI Attending Unavailable FLOYD CASTILLO Consulting Unavailable STEPHANY PELAYO Primary Care Unavailable AGAPITO SCHULER Attending Unavailab AGAPITO Stahl Referring Unavailab STEPHANY Graham Attending Unavailable STEPHANY PELAYO Referring Unavailable STEPHANY PELAYO Primary Care Unavailable GITA, STEPHANY NORIEGA Primary Care Unavailable STEPHANY PELAYO Primary Care Unavailable Mery ROBLES Attending Unavailable Mery ROBLES Referring Unavailable SHAMEKA PALOMO Attending Unavailable STEPHANY PELAYO Primary Care Unavailable SHAMEKA PALOMO Attending Unavailable STEPHANY PELAYO Primary Care Unavailable SHAMEKA PALOMO Attending Unavailable STEPHANY PELAYO Primary Care Unavailable Unavailable Primary Care Provider UnavailStephany Triana PA-C Primary Care Provider Radha Dias DO Primary Care Provider [phone] Unavailable Primary Care Provider UnavailVANESSA Nielsen Admitting Unavailable YARELIS HAMILTON AHCLEOPATRA Referring Unavailable RADHA DIAS Primary Care Unavailable BLAIRE FREITAS Consulting Unavailable ELDA AGUIRRE Attending Unavailable ESVIN IBRAHIM Consulting Unavailable LIANNE MCCORMICK Consulting Unavailable RADHA DIAS Referring Unavailable RADHA DIAS Primary Care Unavailable Ben Honr DO Attending Provider [phone] Ben Horn Attending Unavailable Ben Horn Admitting Unavailable Allergies Allergy Classification Reported Allergen(s) Allergy Type Date of Onset Reaction(s) Facility (20 sources) codeine; Translations: [codeine] Propensity to adverse reactions to drug 02-16-20 08 Vomiting (disorder), hives, Other (See Comments) [facility] Work Phone: Comment on above: hives hives (20 sources) ketorolac; Translations: [ketorolac] Propensity to adverse reactions to drug 10-09-19 11 Hives, Other (See Comments), Rash, GI Intolerance, [facility] (disorder) [facility]: Comment on above: hives hives (20 sources) Latex; Translations: [LATEX] Propensity to adverse reactions to drug 05-01-20 15 Dermatitis [facility] Work Phone: (20 sources) traMADol; Translations: [tramadol] Propensity to adverse reactions to drug 12-15-19 12 Hives, Rash, Other (See Comments), GI Intolerance, Vomiting (disorder), Seizures, Unknown [facility] Work Phone: Comment on above: seizures seizures (20 sources) PROPOXYPHENE N-ACETAMINOPHEN; Translations: [PROPOXYPHENE N-ACETAMINOPHEN] Propensity to adverse reactions to drug 02-16-20 08 GI Intolerance, Vomiting [facility] Work Phone: (1 source) Acetaminophen / Propoxyphene Drug Allergy [facility] Repository (20 sources) Adhesive agent; Translations: [ADHESIVE] Drug allergy (disorder) 07-17-19 18 Itching [facility] Rep[facility] (1 source) Codeine Drug Allergy [facility] (7 sources) Ketorolac; Translations: [Toradol] Drug Allergy 10-09-19 11 hives/seizures [facility] (4 sources) Latex Drug allergy (disorder) 12-21-19 16 [facility] (4 sources) traMADol Drug Allergy 10-01-19 13 [facility] (18 sources) Vancomycin; Translations: [VANCOMYCIN] Drug Allergy 12-15-19 15 Unknown Reaction, Unknown Reaction, [facility] Rep[facility] Comment on above: shuts down my kidne ys . (3 sources) IV Dye, Iodine Containing Drug allergy (disorder) 12-15-19 15 [facility] Repository (9 sources) Adhesive Tape; Translations: [adhesive tape] Allergy to Substance 11-03-19 14 [facility] Repository (20 sources) Ibuprofen; Translations: [ibuprofen] Drug Allergy 08-18-19 18 Other (See Comments), Renal Failure, [facility] Comment on above: shuts down my kidne ys . (20 sources) Propoxyphene; Translations: [PROPOXYPHENE] Drug Allergy 05-25-19 16 GI Intolerance, Nausea And Vomiting [facility] (11 sources) Iodinated Contrast Media; Translations: [Iodinated Contrast Media] Allergy to Substance 02-17-20 17 Other, Unknown [facility] Comment on above: shuts down my kidne ys . (3 sources) Codeine Drug Allergy 10-08-19 11 [facility] Repository (1 source) Contrast media; Translations: [IVP DYE] Propensity to adverse reactions (disorder) 06-18-19 17 [facility] Rep[facility] (14 sources) fentaNYL; Translations: [FENTANYL] Drug Allergy 09-23-19 19 [facility] Repository (1 source) Vancomycin Drug Allergy 06-18-19 17 [facility] Repository (6 sources) DARVOCET-N 100; Translations: [Darvocet-N 100] Drug allergy (disorder) 10-08-19 11 hives [facility] Repository (20 sources) fentaNYL; Translations: [fentanyl] Drug Allergy 04-11-20 19 Renal Failure, GI intolerance [facility] (20 sources) NSAIDs; Translations: [NSAIDS (NON-STEROIDAL ANTI-INFLAMMATOR Y DRUG)] Propensity to adverse reactions to drug 03-30-20 17 [facility] (20 sources) Vancomycin; Translations: [vancomycin] Drug Allergy 01-22-20 17 Other (See Comments), hives [facility] (20 sources) Ct: Iodinated Contrast- Oral And Iv Dye; Translations: [CT: IODINATED CONTRAST- ORAL AND IV DYE] Propensity to adverse reactions to drug 09-07-19 19 Other (See Comments) [facility] (20 sources) acetaminophen / propoxyphene; Translations: [acetaminophen-p ropoxyphene] Drug Allergy 02-16-20 08 Vomiting (disorder), Nausea and Vomiting [facility] (20 sources) Contrast media; Translations: [Contrast Dye] Drug allergy Renal failure syndrome (disorder) [facility] (20 sources) insect stings; Translations: [insect stings] Allergy to substance swelling [facility] (20 sources) opsite; Translations: [opsite] Allergy to substance redness,blisters [facility] (7 sources) Tape 5 Propensity to adverse reactions to substance Eruption of skin (disorder) [facility] Comment on above: blisters (20 sources) Tape 2 Propensity to adverse reactions to substance Eruption of skin (disorder) [facility] Comment on above: blisters blisters (3 sources) FENTENOL Propensity to adverse reactions 09-09-19 23 Unknown [facility] (3 sources) adhesive tape, iv dye, latex Propensity to adverse reactions 09-09-19 23 itchy [facility] (1 source) Tape 4 Propensity to adverse reactions to substance Eruption of skin (disorder) [facility] Comment on above: blisters (2 sources) Ketorolac Drug Allergy 05-25-19 16 Other (See Comments) [facility] (20 sources) LORazepam; Translations: [LORAZEPAM] Drug Allergy 12-09-19 22 Hallucinations, Other (See Comments) [facility] (20 sources) Iodides; Translations: [IODIDES] Propensity to adverse reactions to drug 02-17-20 17 Other (See Comments) [facility] (20 sources) linezolid; Translations: [linezolid] Drug Allergy 08-20-19 23 Nausea and vomiting (disorder), Nausea And Vomiting, GI Intolerance, Renal Failure [facility] (4 sources) dextrose 5 % in water; Translations: [dextrose 5 % in water] Propensity to adverse reactions 08-20-19 23 Vomiting [facility] (1 source) Vancomycin Drug Allergy [facility] Other (1 source) linezolid Drug Allergy 06-25-19 23 [facility] Repository (20 sources) Adhesive agent Propensity to adverse reactions to drug 07-17-19 18 Itching [facility] Work Phone: (2 sources) Adhesive agent Drug allergy (disorder) 11-29-19 23 [facility] Repository (2 sources) Codeine Drug Allergy 11-29-19 23 [facility] Repository (2 sources) fentaNYL Drug Allergy 11-29-19 23 [facility] Repository (2 sources) fosphenytoin Drug Allergy 11-29-19 23 [facility] Repository (2 sources) Ketorolac Drug Allergy 11-29-19 23 [facility] Repository (2 sources) Latex Drug allergy (disorder) 11-29-19 23 [facility] Repository (3 sources) Propoxyphene Drug Allergy 11-29-19 23 Unknown [facility] Rep[facility] (3 sources) traMADol Drug Allergy 11-29-19 23 Unknown [facility] Repository (2 sources) Vancomycin Drug Allergy 11-29-19 23 [facility] Repository (3 sources) ibuproxam Drug allergy (disorder) 11-29-19 23 [facility] Repository (3 sources) bug bites; Translations: [bug bites] Propensity to adverse reactions (disorder) 11-29-19 23 Unknown [facility] Repository (20 sources) Prochlorperazine ; Translations: [PROCHLORPERAZIN E] Drug Allergy 06-04-19 24 Other (See Comments[facility] Ketorolac trometamol Propensity to adverse reactions to drug 01-22-20 17 [facility] (5 sources) Latex Propensity to adverse reactions to drug 05-01-20 15 Dermatitis, Hives, Rash [facility] (5 sources) Non-steroidal anti-inflammator y agent Propensity to adverse reactions to drug 03-30-20 17 [facility] (3 sources) *Adhesive Tape Propensity to adverse reactions 07-15-19 18 [facility] Work Phone: (3 sources) Codeine And Related Propensity to adverse reactions to drug 02-16-20 08 Aggressive Behavior [facility] (3 sources) Dye Usp Red 3 (Erythrosine) Propensity to adverse reactions to drug 01-22-20 17 [facility] (1 source) Adhesive Tape; Translations: [Tape] Propensity to adverse reactions (disorder) [facility] Repository (1 source) traMADol; Translations: [Ultram] Drug Allergy [facility] Repository (4 sources) Lorazepam Propensity to adverse reactions to drug 12-09-19 22 Renal Failure, Hallucinations [facility] (2 sources) Morphine And Codeine Drug Intolerance 02-16-20 08 Other, Rash, GI intolerance [facility] (1 source) Adhesive agent Allergy to substance 08-30-19 25 [facility] Work Phone: (1 source) fosphenytoin Drug Allergy 08-30-19 25 Itching [facility] Work Phone: (2 sources) Acetaminophen; Translations: [ACETAMINOPHEN] Drug Allergy 09-09-19 23 hives [facility] Repository (1 source) Morphine; Translations: [MORPHINE] Drug Allergy 02-16-20 08 [facility] Repository (5 sources) ADHESIVE TAPE-SILICONES; Translations: [ADHESIVE TAPE-SILICONES] Propensity to adverse reactions to drug (disorder) 07-15-19 18 [facility] Repository (4 sources) Contrast media; Translations: [DYE] Propensity to adverse reactions to drug 08-18-19 18 [facility] Medications Current Medications Medication Drug Class(es) Dates Sig (Normalized) Sig (Original) acetaminophen 325 mg / oxyCODONE hydrochloride 5 mg oral tablet (20 sources) Opioid Agonist Start: 12-03-2024 End: 12-05-2024 1 tablet, oral, Every 8 hours PRN, severe pain - pain scale 7-10, Starting on 12/03/24 at 0253, Look-alike/sound-a like medication - verify indication for use., Indications: pain Start: 11-21-2024 End: 01-21-2025 take 1 tablet by mouth three times daily as needed for pain oxyCODONE-acetaminophen (PERCOCET) 5-325 mg per tablet Indications: Chronic pain syndrome Take 1 (one) tablet by mouth 3 (three) times a day as needed for pain (Days supply per fill: 30) Start: 12/22/24. 90 tablet 12/22/2024 01/21/2025 Active Start: 10-23-2024 End: 10-10-2024 take 1 tablet by mouth three times daily as needed for pain oxyCODONE-acetaminophen (PERCOCET) 5-325 mg per tablet Indications: Chronic pain syndrome Take 1 (one) tablet by mouth 3 (three) times a day as needed for pain (Days supply per fill: 14) Start: 10/23/24. 42 tablet 10/23/2024 10/10/2024 Discontinued (Reorder (Suppress CancelRx Message to Pharmacy)) Start: 10-23-2024 End: 10-10-2024 take 1 tablet by mouth three times daily as needed for pain oxyCODONE-acetaminophen (PERCOCET) 5-325 mg per tablet Indications: Chronic pain syndrome Take 1 (one) tablet by mouth 3 (three) times a day as needed for pain (Days supply per fill: 14) Start: 10/23/24. 42 tablet 10/23/2024 10/10/2024 Discontinued (Reorder (Suppress CancelRx Message to Pharmacy)) Start: 10-11-2024 End: 11-21-2024 take 1 tablet by mouth three times daily as needed for pain oxyCODONE-acetaminophen (PERCOCET) 5-325 mg per tablet Indications: Chronic pain syndrome Take 1 (one) tablet by mouth 3 (three) times a day as needed for pain (Days supply per fill: 30) . 90 tablet 10/11/2024 11/21/2024 Discontinued (Reorder (Suppress CancelRx Message to Pharmacy)) Start: 09-23-2024 End: 10-07-2024 take 1 tablet by mouth three times daily as needed for pain oxyCODONE-acetaminophen (PERCOCET) 5-325 mg per tablet Indications: Chronic pain syndrome Take 1 (one) tablet by mouth 3 (three) times a day as needed for pain (Days supply per fill: 14) . 42 tablet 09/23/2024 10/06/2024 Discontinued (Reorder (Suppress CancelRx Message to Pharmacy)) Start: 08-29-2024 Oxycodone-Acet aminophen 5-325 mg tablet [...] puff(s) by in halation every six hours Start: 08-08-2022 take 1 puff(s) by mo ut every four hours as needed Ventolin HFA [...] Cough and Congestion, 18 gm, Refill(s) 0, [facility], 158, cm, 10/09/21 15:33:00 EDT, Height/Length [...] breath or wheezing, 180 mL, Refill(s) 0, [facility], 162, cm, 04/06/22 20:38:00 EST, Height/Length Dosing, 112, kg, 04/06/22 20:38:00 EST, Weight Dosing Start Date: 04/08/22 Status: Ordered aspirin 81 mg delayed release oral tablet (20 sources) Platelet Aggregation Inhibitor, Nonsteroidal Anti-inflammatory Drug Start: 08-22-2022 take 1 tablet by mouth once daily Start: 07-23-2018 End: 08-20-2022 take 1 tablet by mouth once daily Aspirin (Aspir-81) 81 mg Tablet,Delayed Release (Dr/Ec) Discontinued 81 MG PO Daily July 23, 2018 1:00am August 20, 2022 3:10am Start: 05-28-2015 End: 08-29-2024 aspirin 81 MG Chew Tab Indic ations: Atrial fibrillation, unspecified type , SSS (sick sinus syndrome) take 1 tablet by mouth daily.. 30 tablet 01/21/2017 Active azithromycin 250 mg oral tablet (2 sources) Macrolide Antimicrobial Start: 04-09-2022 End: 04-11-2022 take 1 tablet by mouth once daily azithromycin 250 mg Tab 250 mg = 1 tab(s), Oral, Daily, X 2 day(s), # 2 tab(s), Refills(s) 0, Pharmacy: [facility], 162, cm, 04/06/22 20:38:00 EST, [...] (ADULT BLOOD PRESSURE CUFF LG) XX KIT (3 sources) Start: 07-02-2012 Blood-Glucose Sensor (Dexcom G6 Sensor) device (1 source) Start: 08-29-2024 Blood-Glucose Sensor (Dexcom G6 Sensor) device Active EACH August 29, 2024 12:00am brexpiprazole 1 mg oral tablet (19 sources) Atypical Antipsychotic Start: 06-26-2024 Rexulti 1 mg Tab TAKE 1 TABLET DAILY FOR 7 DAYS, THEN 2 DAILY FOR 7 DAYS AND AFTER IF TOLERATED FOR PSYCHOSIS 06/26/2024 Active brimonidine tartrate 2 mg/ml / brinzolamide 10 mg/ml ophthalmic suspension (2 sources) Carbonic Anhydrase Inhibitor, alpha-Adrenergic Agonist Start: 11-09-2023 Brinzolamide-Brimon idine (Simbrinza) 1-0.2 % Suspension Apply 1 drop to eye. Pt given sample by Jessica Puentes MD 11/09/23 11/09/2023 Active brompheniramine maleate 0.4 mg/ml / dextromethorphan hydrobromide 2 mg/ml / pseudoephedrine hydrochloride 6 mg/ml oral solution (15 sources) alpha-Adrenergic Agonist, Uncompetitive P-hqflwq-O-asparta te Receptor Antagonist, Sigma-1 Agonist Start: 10-09-2021 [...] 1 tablet by mouth once daily cholecalciferol 0.025 mg oral tablet (7 sources) Vitamin D Start: 04-08-2022 take 1 tablet by mouth once daily cholecalciferol 1000 intl units (25 mcg) oral tablet 25 mcg = 1 tab(s), Oral, Daily, # 30 tab(s), Refills(s) 0, Pharmacy: [facility], 162, cm, 04/06/22 20:38:00 EST, [...] Antibacterial Start: 04-04-2024 End: 04-08-2024 Dexcom G6 Hide Buyer Misc (20 sources) Start: 12-03-2023 Dexcom G6 [...] (20 sources) Start: 12-03-2023 Dexcom G6 Kelley smitter Simran Indications: Type 2 diabetes mellitus with diabetic polyneuropathy, with long-term current use of insulin (HCC) Use as directed for continuous glucose monitoring change every 3 months . 1 each 12/03/2023 Start: 12-03-2023 Dexcom G6 Kelley smitter Simran Indications: Type 2 diabetes mellitus with diabetic polyneuropathy, with long-term current use of insulin (HCC) Use as directed for continuous glucose monitoring change every 3 months . 1 each 12/03/2023 Suspended Start: 12-03-2023 Dexcom G6 Kelley smitter Simran Indications: Type 2 diabetes mellitus with [...] QID, # 20 cap(s), Refills(s) 0, Pharmacy: [facility], 157, cm, 05/04/22 15:39:00 EST, Height/Length Dosing, 130, kg, 05/04/22 15:39:00 EST, Weight Dosing Start Date: 05/04/22 Status: Ordered Start: 01-24-2022 End: 01-31-2022 take 1 tablet by mouth three times daily dicyclomine 20 mg Tab 20 mg = 1 tab(s), Oral, TID, X 7 day(s), # 21 tab(s), Refills(s) 0, Pharmacy: [facility], 157, cm, 01/24/22 10:48:00 EDT, Height/Length Dosing, 115, kg, 01/24/22 10:48:00 EDT, Weight Dosing Start Date: 01/24/22 Stop Date: 01/31/22 Status: Ordered diphenhydrAMINE hydrochloride 25 mg oral tablet (11 sources) Histamine-1 Receptor Antagonist Start: 05-13-2023 End: [...] 01/27/2024 02/06/2024 Start: 08-20-2022 End: 08-22-2022 take 1 tablet by mouth twice daily Doxycycline Hyclate 100 mg tablet Discontinued 100 MG PO Twice daily August 20, 2022 12:00am August 22, 2022 1:34pm Start: 08-19-2022 End: 08-29-2022 take 1 tablet by mouth every twelve hours doxycycline hyclate 100 mg Tab 100 mg = 1 tab(s), Oral, q12hr, X 10 day(s), # 20 tab(s), Refills(s) 0, Pharmacy: [facility], 157, cm, 08/19/22 17:10:00 EDT, Height/Length Dosing, [...] at pharmacy - [facility] [place] . 0 06/01/2020 Active fluconazole 150 mg [...] pick it up tomorrow at pharmacy - [facility] [place] . 0 06/01/2020 02/17/2023 Discontinued GLUCOSE MONITOR PRESCRIPTION (3 sources) Start: 04-01-2017 GLUCOSE MONITO R PRESCRIPTION Dispense ONE. Patient requires Insulin. 1 Each 1 04/01/2017 Active Handicap placard (14 sources) Start: 09-30-[address] Handicap placard, See Instructions, 1 EA, 0, Dispense handicap placard, good for 5 years., Supply Start Date: 09/30/21 [...] 1 each 2 03/10/2024 03/10/2025 Active insulin glargine 100 unt/ml injectable solution (20 sources) Insulin Analogue Start: 12-05-2024 inject 0.3 mL by subcutaneous injection in the morning insulin glargine (LANTUS) 100 unit/mL injection Inject 0.3 mL (30 Units total) under the skin in the morning and 0.3 mL (30 Units total) before bedtime. 10 mL 12 12/05/2024 Active Start: 12-05-2024 End: 12-05-2024 25 Units, subcutaneous, 2 ti mes daily, First dose (after last modification) on 12/05/24 at 0900, Look-alike/sound-alike medication - verify indication for use. Prime with 2 units of insulin prior to administration. Basal (long acting) insulin for subcutaneous administration only. Do not mix with any other insulin. Pre-filled pens stable 28 days at room temperature. Start: 12-04-2024 End: 12-05-2024 20 Units, subcutaneous, 2 ti mes daily, First dose (after last modification) on Thu12/04/24 at 0900, Look-alike/sound-alike medication - verify indication for use. Prime with 2 units of insulin prior to administration. Basal (long acting) insulin for subcutaneous administration only. Do not mix with any other insulin. Pre-filled pens stable 28 days at room temperature. Start: 12-03-2024 End: 12-04-2024 15 Units, subcutaneous, 2 ti mes daily, First dose on 12/03/24 at 1700, Look-alike/sound-alike medication - verify indication for use. Prime with 2 units of insulin prior to administration. Basal (long acting) insulin for subcutaneous administration only. Do not mix with any other insulin. Pre-filled pens stable 28 days at room temperature. Start: 04-27-2024 End: 04-28-2024 45 Units, Subcutaneous, [...] insulin without notifying physician Start: 03-29-2024 End: 12-05-2024 60 Units, Subcutaneous, Nigh tly, First dose (after last modification) on Thu04/28/24 at 2100, If patient NPO and BG LESS than 100 before procedure, administer half (rounded up to nearest unit) of the glargine insulin (LANTUS) dose; if BG is GREATER than 100, administer the full dose unless otherwise instructed by ordering physician Do not mix with other insulins in a syringe. Do NOT hold basal insulin without notifying physician Start: 03-29-2023 End: 03-30-2023 inject 25 [IU] [...] completed) Start: 04-01-2017 inject 48 [IU] by subcutaneous injection at bedtime insulin glargine 100 UNIT/ML Solution Pen-injector injection Inject 48 Units under the skin at bedtime. 15 mL 1 04/01/2017 Active Start: 03-29-2015 inject 55 [IU] by subcutaneous injection twice daily in the evening, then [...] the skin 2 times daily 0 Active Insulin Lispro (Admelog U-10 0 [...] Active insulin lispro 100 UNIT/ML v ial (3 sources) Start: 04-01-2017 insulin lispro 100 UNIT/ML [...] Discontinued (Reorder (Suppress CancelRx Message to Pharmacy)) lisinopril 40 mg oral tablet (20 sources) [...] First dose on Thu02/18/23 at 1200 Start: 09-15-2022 End: 09-15-2022 lisinopril 20 mg Tab 40 mg = 2 tab(s), Tab, Oral, Start date 09/15/22 9:00:00 EDT, 09/12/22 17:37:00 EDT Start Date: 09/15/22 Stop Date: 09/15/22 Status: Completed Start: 08-20-2022 End: 02-28-2023 Lisinopril 40 mg tablet Disc ontinued 40 MG PO As Directed 60 August 22, 2022 1:31pm September 12, 2022 7:09am Take half a tablet daily for 2 days then 1 tablet daily Start: 07-02-2012 End: 08-29-2024 take 1 tablet by mouth once daily lisinopril (ZESTRIL) 5 MG PO TABS Indications: HTN (hypertension) , A-fib take 1 Tab by mouth daily. 30 Tab 11 07/02/2012 Active take 1.5 tablets by mouth once daily Lisinopril 20 MG tablet Take 1.5 tablets by mouth daily. Active lithium carbonate 300 mg ora l capsule (11 sources) Start: 01-21-2017 lithium 300 MG Cap Indications: Atrial fibrillation, unspecified type , SSS (sick sinus syndrome) 300mg in AM and 600mg QHS 90 capsule 01/21/2017 Active take 1 tablet by eduardo th once daily before breakfast lithium carbonate 300 mg tablet Take 300 mg by mouth every morning before breakfast. Active take 1 capsule by mouth once orly ly lithium 600 MG capsule Take 600 mg by mouth nightly. Active take 2 capsules by mouth once [...] day(s), # 90 tab(s), Refills(s) 0, Pharmacy: [facility], 158, cm, 09/30/21 14:00:00 EDT, Height/Length Dosing, 112.8, kg, 09/30/21 14:00:00 EDT, Weight Dosing Start Date: 09/30/21 Stop Date: 12/29/21 Status: Ordered Start: 07-14-2017 End: 03-24-2019 take 1 tablet by mouth once daily Losartan 25 mg tablet Discontinued 25 MG PO Daily July 23, 2018 1:00am March 24, 2019 8:31am meclizine hydrochloride 25 mg oral tablet (20 sources) Antiemetic Start: 09-30-2021 take 1 tablet by mouth three times daily as needed for dizziness meclizine 25 mg Tab 25 mg = 1 tab(s), Oral, TID, PRN as needed for dizziness, # 30 tab(s), Refills(s) 0, Pharmacy: [facility] 1986, 158, cm, 09/30/21 14:00:00 EDT, Height/Length Dosing, 112.8, kg, 09/30/21 14:00:00 EDT, Weight Dosing Start Date: 09/30/21 Status: Ordered Start: 11-14-2020 take 1 tablet by eduardo th three times daily as needed for dizziness meclizine 25 mg Tab 25 mg = 1 tab(s), Oral, TID, PRN as needed for dizziness, # 30 tab(s), Refills(s) 0, Pharmacy: [facility], 157, cm, 11/14/20 15:53:00 EDT, Height/Length Dosing, 117.1, kg, 11/14/20 15:53:00 EDT, Weight Dosing Start Date: 11/14/20 Status: Ordered meloxicam 15 mg oral tablet (20 sources) Nonsteroidal Anti-inflammatory Drug Start: 09-30-2021 End: 12-29-2021 take 1 tablet by mouth once daily meloxicam 15 mg Tab 15 mg = 1 tab(s), Oral, Daily, X 90 day(s), # 90 tab(s), Refills(s) 0, Pharmacy: [facility], 158, cm, 09/30/21 14:00:00 EDT, Height/Length Dosing, 112.8, kg, 09/30/21 14:00:00 EDT, Weight Dosing Start Date: 09/30/21 Stop Date: 12/29/21 Status: Ordered Start: 07-14-2017 End: 03-24-2019 take 1 tablet by mouth once daily as needed for pain Meloxicam 15 mg Tablet Discontinued 15 MG PO Daily as needed for pain 0 January 29, 2019 11:26am March 24, 2019 8:32am metFORMIN hydrochloride 1000 mg oral tablet (20 sources) Biguanide Start: 03-29-2015 End: 07-25-2024 take 1 tablet by mouth twice daily Start: 08-22-2012 End: 08-29-2024 take 2 tablets by mouth twice daily Metformin 500 MG tablet Discontinued 1000 MG PO TWO TIMES DAILY August 22, 2012 12:00am August 29, 2024 1:56pm take 1 tablet by eduardo th twice daily at mealtime metFORMIN (GLUMETZA) 1000 MG (MOD) 24 hr tablet Take 1,000 mg by mouth 2 (two) times a day with meals. Active methocarbamol 500 mg oral tablet (1 source) Muscle Relaxant Start: 06-02-2022 End: 06-05-2022 take 1 tablet by mouth three times daily Robaxin 500 mg Tab 500 mg = 1 tab(s), Oral, TID, X 3 day(s), # 9 tab(s), Refills(s) 0, Pharmacy: [facility], 157, cm, 06/02/22 15:53:00 EST, [...] at 2330 Start: 01-29-2019 End: 08-20-2022 take 1 tablet by mouth once daily Metoprolol Succinate 50 mg Tablet Extended Release 24 Hr Discontinued 50 MG PO Daily 0 January 29, 2019 12:00am August 20, 2022 3:13am Start: 07-23-2018 End: 01-18-2024 take 1 tablet by mouth twice daily Start: 08-22-2012 End: 08-29-2024 Metoprolol Tartrate 25 [...] day(s), # 10 cap(s), Refills(s) 0, Pharmacy: [facility], 158, cm, 10/30/21 13:11:00 [...] day(s), # 90 cap(s), Refills(s) 0, Pharmacy: [facility] 1986, 158, cm, 09/30/21 14:00:00 EDT, Height/Length Dosing, 112.8, kg, 09/30/21 14:00:00 EDT, Weight Dosing Start Date: 09/30/21 Stop Date: 12/29/21 Status: Ordered Start: 07-23-2018 take 40 mg by mouth once daily Omeprazole Magnesium [Prilosec] 40 MG Oral Daily July 23, 2018 Active Start: 07-23-2018 take 40 mg by mouth once daily Start: 07-23-2018 take 40 mg by mouth [...] day(s), # 90 cap(s), Refills(s) 0, Pharmacy: [facility], 158, cm, 09/30/21 14:00:00 EDT, [...] Omnipod 5 G6-G7 Pods, Gen 5, Crtg (20 sources) Start: 06-01-2024 Omnipod 5 G6-G 7 Pods, Gen 5, Crtg 06/01/2024 Active Omnipod Insulin Refill Crtg (20 sources) Start: 04-16-2020 Omnipod Insuli n Refill Crtg 04/16/2020 Start: 04-16-2020 Omnipod Insuli n Refill Crtg 04/16/2020 Suspended Start: 04-16-2020 Omnipod Insuli n Refill Crtg 04/16/2020 Active Start: 04-16-2020 Omnipod Insuli n Refill Crtg 24 hr paliperidone 6 mg extended release oral tablet (17 sources) Atypical Antipsychotic Start: 07-27-2024 take 1 [...] before breakfast, First dose on Thu02/18/23 at 0730 DO NOT CRUSH OR CHEW. [...] Oral, 2 times daily, First dose on Thu06/03/20 at 2100 DO NOT CRUSH OR CHEW. take 1 dose by mouth once daily before breakfast pantoprazole Sodium 40 MG Pack Take 1 packet by mouth every morning before breakfast. Active Pen Braggs 10/07 (2 sources) Start: 03-06-2018 Pen Braggs as directed twice daily Feb, Active petrolatum 0.57 mg/mg / zinc oxide 0.17 mg/mg paste (17 sources) Start: 08-02-2024 zinc oxide-whi te petrolatum 17-57 % Pste Apply 1 Application topically daily . 113 g 2 08/02/2024 Active polyethylene glycol 3350 73814 mg powder for oral solution (20 sources) [...] day(s), # 15 tab(s), Refills(s) 0, Pharmacy: [facility], 158, cm, 10/09/21 15:33:00 EDT, Height/Length Dosing, 112.8, kg, 10/09/21 15:33:00 EDT, Weight Dosing Start Date: 10/09/21 Stop Date: 10/14/21 Status: Ordered pregabalin 75 mg oral capsule (20 sources) Start: 12-03-2024 End: 12-05-2024 take 100 mg by mouth once daily 100 mg, oral, Nightly, First dose on 12/03/24 at 2200, Look-alike/sound-al carmen medication. Verify indication for use Start: 07-14-2024 End: 01-21-2025 take 1 capsule by mouth twice daily pregabalin (LYRICA) 75 MG capsule Indications: DDD (degenerative disc disease), lumbar , Lumbar radiculopathy Take 1 (one) capsule (75 mg total) by mouth 2 (two) times a day (Days supply per fill: 30) . 60 capsule 11/21/2024 12/19/2024 Discontinued (Reorder (Suppress CancelRx Message to Pharmacy)) Start: 01-13-2024 End: 07-12-2024 take 1 capsule [...] (LYRICA) capsule 150 mg Start: 08-04-2019 take 1 capsule by mo [facility] at bedtime Start: 01-29-2019 take 100 mg by mouth [...] 2024 1:56pm take 1 capsule by mo [facility] at bedtime pregabalin 100 MG Cap Take 100 mg by mouth at bedtime. Active vitamin with Ca-Iron-FA 27-1 mg [...] (one) tablet by mouth daily . Active saccharomyces boulardii 250 mg oral capsule (8 sources) Start: 08-22-2022 take 1 capsule by mouth twice daily at mealtime [employer] - (2 sources) Start: 05-19-2018 [...] (20 sources) Central alpha-2 Adrenergic Agonist Start: 12-03-2024 End: 12-05-2024 take 4 mg by mouth three times daily 4 mg, oral, 3 times daily, First dose on 12/03/24 at 0800, Look-alike/sound-al carmen medication - verify indication for use. Start: 08-29-2024 Tizanidine 4 m g tablet Active MG TABLET August 29, 2024 12:00am Start: 07-14-2024 End: 12-19-2024 take 2 tablets by mouth once daily tiZANidine (Zanaflex) 4 MG tablet Indications: DDD (degenerative disc disease), lumbar Take 2 tabs p.o. nightly . 60 tablet 3 12/20/2024 Active Start: 06-12-2024 End: 07-12-2024 take 2 [...] 2022 12:00am Start: 08-20-2022 End: 09-12-2022 take 1 tablet by mouth three times daily as needed for muscle spasms Tizanidine 4 mg tablet Discontinued 4 MG PO Three times daily as needed for Muscle Spasm August 20, 2022 12:00am September 12, 2022 7:07am Start: 12-29-2021 take 3 tablets by [facility] once daily at bedtime Zanaflex 4 mg Tab 12 mg = 3 tab(s), Oral, Once a day (at bedtime), # 30 tab(s), Refills(s) 1, Pharmacy: [facility], 157, cm, 12/12/21 16:54:00 EDT, Height/Length Dosing, 114.8, kg, 12/12/21 16:54:00 EDT, Weight Dosing Start Date: 12/29/21 Status: Ordered Start: 12-12-2021 take 3 tablets by mo [facility] once daily at bedtime Zanaflex 4 mg Tab 12 mg = 3 tab(s), Oral, Once a day (at bedtime), # 30 tab(s), Refills(s) 1, Pharmacy: [facility], 157, cm, 12/12/21 16:54:00 EDT, Height/Length Dosing, 114.8, kg, 12/12/21 16:54:00 EDT, Weight Dosing Start Date: 12/12/21 Status: Ordered Start: 10-28-2021 take 3 tablets by [facility] once daily at bedtime Zanaflex 4 mg Tab 12 mg = 3 tab(s), Oral, Once a day (at bedtime), # 30 tab(s), Refills(s) 0, Pharmacy: [facility], 158, cm, 10/09/21 15:33:00 EDT, Height/Length Dosing, 112.8, kg, 10/09/21 15:33:00 EDT, Weight Dosing Start Date: 10/28/21 Status: Ordered Start: 09-30-2021 take 3 tablets by [facility] once daily at bedtime Zanaflex 4 mg Tab 12 mg = 3 tab(s), Oral, Once a day (at bedtime), # 30 tab(s), Refills(s) 0, Pharmacy: [facility], 158, cm, 09/30/21 14:00:00 EDT, Height/Length Dosing, 112.8, kg, 09/30/21 14:00:00 EDT, Weight Dosing Start Date: 09/30/21 Status: Ordered Start: 07-31-2021 take 3 tablets by [facility] once daily at bedtime Zanaflex 4 mg Tab 12 mg = 3 tab(s), Oral, Once a day (at bedtime), # 30 tab(s), Refills(s) 0, Pharmacy: [facility], 157.5, cm, 07/29/21 14:55:00 EST, Height/Length Dosing, 110.1, kg, 07/29/21 14:55:00 EST, Weight Dosing Start Date: 07/31/21 Status: Ordered Start: 05-09-2020 End: 02-17-2023 tiZANidine (ZANAFLEX) 2 MG t ablet Start: 01-22-2019 End: 01-29-2019 take 3 tablets by mouth three times daily as needed for headache Tizanidine 4 mg tablet Discontinued 12 MG PO Three times daily as needed for Headache January 22, 2019 3:40pm January 29, 2019 11:28am Start: 01-22-2019 End: 01-29-2019 take 12 mg by mouth three times daily Tizanidine Discontinued 12 MG PO Three times daily January 22, 2019 3:40pm January 29, 2019 11:28am Start: 09-07-2018 End: 01-22-2019 take 6 mg by mouth three times daily Tizanidine Discontinued 6 MG PO Three times daily 60 September 09, 2018 12:00am January 22, 2019 3:41pm Start: 09-07-2018 End: 01-22-2019 take 6 mg by mouth three times daily as needed for headache Tizanidine 4 mg Tablet Discontinued 6 MG PO Three times daily as needed for Headache 60 September 09, 2018 12:00am January 22, 2019 3:41pm Start: 07-23-2018 End: 09-07-2018 take 2 tablets by mouth at bedtime Tizanidine 4 mg tablet Discontinued 8 MG PO Bedtime July 23, 2018 1:00am September 07, 2018 2:59pm Start: 07-23-2018 End: 09-07-2018 take 8 mg [...] 0 02/17/2023 Discontinued take 2 tablets by mo ut three times daily as needed for muscle spasms Zanaflex 4 MG 2 tablet Orally Three times a day as needed for muscle spasm for 30 days Active traZODone hydrochloride 100 mg oral tablet [...] Oral, Nightly PRN, sl eep, Starting on Thu04/26/24 at 2343, May repeat [...] PRN, sleep, Starting on Thu02/18/23 at 0028 zolpidem tartrate 5 mg oral tablet (5 [...] tablet 1 tablet 1 tablet, Oral, Once, 06/26/17 at 2200, For 1 dose Given 06/26/2017 [...] Tricyclic Antidepressant Start: 08-19-2018 End: 08-20-2022 take 1 tablet by mouth once daily at bedtime Amitriptyline 25 mg Tablet Discontinued 25 MG PO Daily at bedtime [...] mg / clavulanate 125 mg oral tablet (11 sources) Penicillin-class Antibacterial Start: 07-05-2024 End: 07-15-2024 [...] by mouth every eight hours Amoxicillin-Pot Clavulanate 500-125 mg tablet Discontinued 1 TAB PO Q8H 30 August 21, 2022 12:00am September 12, 2022 7:00am ARIPiprazole 10 mg oral tablet (2 sources) Atypical Antipsychotic End: 06-05-2020 take 1 tablet by mouth once daily ARIPiprazole (ABILIFY) 10 MG tablet Take 10 mg by mouth daily. 0 06/05/2020 Discontinued (Stop Taking at Discharge) atorvastatin 40 mg oral tablet (20 sources) HMG-CoA Reductase Inhibitor Start: 12-03-2024 End: 12-05-2024 take 80 mg by mouth once daily 80 mg, oral, Daily, First dose on 12/03/24 at 0900, Look-alike/sound-a like medication - verify indication for use. Start: 03-10-2022 take 1 tablet by eduardo th once daily atorvastatin (LIPITOR) 80 MG tablet Take 1 (one) tablet (80 mg total) by mouth daily . 90 tablet 1 08/05/2024 Active Start: 06-03-2020 End: 06-05-2020 take 20 mg by mouth once daily 20 mg, Oral, Nightly, F irst dose on 06/03/20 at 2330 Start: 06-15-2015 End: 08-29-2024 take 1 tablet by mouth once daily Atorvastatin 10 MG tablet Discontinued 10 MG PO DAILY June 15, 2015 1:00am August 29, 2024 1:56pm Start: 03-08-2015 End: 08-05-2024 take 1 tablet by mouth once daily in the evening Start: 03-08-2015 End: 08-20-2022 take 1 tablet by mouth once daily Atorvastatin 20 mg tablet Discontinued 20 MG PO Daily July 23, 2018 1:00am August 20, 2022 3:10am bisacodyl 10 mg rectal suppository (2 sources) Stimulant Laxative Start: 02-18-2023 End: 02-20-2023 take 10 mg rectal route once daily as needed for constipation 10 mg, Rectal, Daily PRN, constipation, Starting on Thu02/18/23 at 0028 Try oral medications first for constipation. Try [...] day(s), # 14 cap(s), Refills(s) 0, Pharmacy: [facility], 158, cm, 11/04/21 11:29:00 EDT, Height/Length Dosing, 113, kg, 11/04/21 11:29:00 EDT, Weight Dosing Start Date: 11/06/21 Stop Date: 11/13/21 Status: Ordered cefepime 2000 mg injection (1 source) Cephalosporin Antibacterial Start: 01-12-2024 End: 01-12-2024 2,000 mg, Intravenous, at 100 mL/hr, Once, On Thu01/12/24 at 1700, For 1 dose, Indication: Other: (specify), Indication: diabetic foot infection cephalexin 500 mg oral capsule (10 sources) Cephalosporin Antibacterial Start: 04-28-2023 End: 05-08-2023 take 1 capsule by mouth four times daily cephALEXin (KEFLEX) 500 MG capsule Take 1 (one) capsule (500 mg total) by mouth 4 (four) times a day for 10 days . 40 capsule 0 04/28/2023 05/06/2023 Discontinued (Therapy completed) Start: 08-05-2019 End: 09-22-2019 take 1 capsule by mouth twice daily Cephalexin 500 mg capsule Discontinued 500 MG PO Twice daily 10 August 05, 2019 12:00am September 22, 2019 8:10am End: 06-05-2020 take 1 capsule by mouth four times daily cephALEXin (KEFLEX) 500 MG capsule Take 500 mg by mouth 4 (four) times a day . 0 06/05/2020 Discontinued (Stop Taking at Discharge) chlorhexidine gluconate 40 mg/ml medicated liquid soap (7 sources) Start: 09-07-2018 End: 03-24-2019 Chlorhexidine Gluconate [...] 20 mg/ml oral solution (4 sources) Uncompetitive R-icisik-Y-aspartat e Receptor Antagonist, Sigma-1 Agonist Start: 05-15-2023 [...] at Discharge) Start: 08-22-2022 End: 09-12-2022 take 1 capsule by mouth every week Start: 04-08-2022 End: 05-20-2022 ergocalciferol 50,000 intl u nits Cap 50,000 International_Unit = 1 cap(s), Oral, q7day, X 6 week(s), # 6 cap(s), Refills(s) 0, Pharmacy: [facility], 162, cm, 04/06/22 20:38:00 EST, [...] (Suppress CancelRx Message to Pharmacy)) flu vacc [id number] 6mos up(PF) (FLUZONE QUAD/FLULAVAL QUAD/FLUARIX QUAD) syringe 0.5 mL (1 source) Start: 06-03-2020 End: 06-05-2020 inject 0.5 mL by intramuscular injection every twenty-four hours as needed flu vacc [id number] 6mos up(PF) (FLUZONE QUAD/FLULAVAL QUAD/FLUARIX QUAD) syringe 0.5 mL flu vacc [id number] 6mos up(PF) (FLUZONE QUAD/FLULAVAL QUAD/FLUARIX QUAD) syringe Syrg 0.5 mL (1 source) Start: 03-29-2023 End: 03-30-2023 inject 0.5 mL by intramuscular injection every twenty-four hours as needed flu vacc [id number] 6mos up(PF) (FLUZONE QUAD/FLULAVAL QUAD/FLUARIX QUAD) syringe [...] on Thu02/18/23 at 0900 FreeStyle Zeinab 2 [place] Misc (20 sources) Start: 04-01-2023 End: 12-02-2023 FreeStyle Zeinab 2 [place] Misc Indications: Type 2 diabetes mellitus with diabetic polyneuropathy, with long-term current use of insulin (HCC) Inject 1 each under the skin 2 (two) times a day . 04/01/2023 12/02/2023 Discontinued (Alternate therapy) Start: 04-01-2023 FreeStyle Libr e 2 [place] Misc Indications: Type 2 diabetes mellitus with diabetic polyneuropathy, with long-term current use of insulin (HCC) Inject 1 each under the skin 2 (two) times a day . 04/01/2023 Active Start: 04-01-2023 FreeStyle Libr e 2 [place] Misc Indications: Type 2 diabetes mellitus with diabetic polyneuropathy, with long-term current use of insulin (HCC) Inject 1 each under the skin 2 (two) times a day . 0 04/01/2023 Suspended Start: 04-01-2023 FreeStyle Libr e 2 [place] Mis Indications: Type 2 diabetes mellitus with [...] . 0 03/31/2023 05/06/2023 Discontinued (Therapy completed) glucagon (rdna) 1 mg injection (20 sources) Antihypoglycemic Agent Start: 12-03-2024 End: 12-05-2024 1 mg, intramuscular, As needed, low blood sugar, blood glucose less than 70 mg/dL and unconscious or NPO without IV access., Starting on 12/03/24 at 1655, If conscious and not NPO, immediately follow with meal tray or high protein (7Grams) snack if tray not available. If NPO, initiate IV 5% Dextrose/Water at 100 mL/hr and contact prescriber for additional orders. If blood glucose is not greater than 70 mg/dL after initial treatment, repeat treatment. Start: 12-03-2023 End: 12-03-2023 glucagon (Gvoke HypoPen 2-Pa ck) 1 mg/0.2 mL AtIn Indications: Type 2 diabetes mellitus with diabetic polyneuropathy, with long-term current use of insulin (HCC) Inject 0.2 mL (1 mg total) under the skin as needed . 2 mL 1 12/03/2023 Active Start: 12-03-2023 50 ml glucose 500 mg/ml prefilled syringe (2 sources) Start: 12-03-2024 End: 12-05-2024 15 g, oral, As needed, low b lood sugar, blood glucose less than 70 mg/dL, Starting on 12/03/24 at 1655, If patient conscious and taking PO. If blood glucose is not greater than 70 mg/dL after initial treatment, repeat treatment. Start: 12-03-2024 End: 12-05-2024 25 mL, intravenous, As neede d, low blood sugar, blood glucose less than 70 mg/dL and unconscious or NPO with IV access, Starting on 12/03/24 at 1655, Push over 1-3 minutes STAT. If conscious and not NPO, immediately follow with meal tray or high protein (7 grams) snack if tray not available. If NPO, initiate 5% dextrose in water at 100 mL/hr and contact prescriber for additional orders. If blood glucose is not greater than 70 mg/dL after initial treatment, repeat treatment. VESICANT (RED) Warning: HYPERTONIC solution. 1000 ml glucose 50 mg/ml / potassium chloride 0.02 meq/ml / sodium chloride 9 mg/ml injection (1 source) Start: 12-03-2024 End: 12-03-2024 take 250 mg intravenously every hour as needed 250 mL/hr, intravenous, Continuous PRN, for blood glucose 250mg/dL or less, Starting on 12/03/24 at 0740, For 1 day, Once IV fluid is changed to dextrose-containing formulation, DO NOT change to [id number] IV fluid if blood glucose exceeds 250 mg/dL. 12 hr guaiFENesin 600 mg extended release [...] Discontinued Start: 04-08-2022 take 2 tablets by [facility] twice daily Mucinex 600 mg Tab-ER 1,200 mg = 2 tab(s), Oral, BID, # 30 tab(s), Refills(s) 0, Pharmacy: [facility] 1984, 162, cm, 04/06/22 20:38:00 EST, [...] tablet 0 05/04/2023 05/06/2023 Discontinued (Therapy completed) 1 ml heparin sodium, porcine 5000 unt/ml injection (7 sources) Unfractionated Heparin, Anti-coagulant Start: 12-03-2024 End: 12-05-2024 5,000 Units, subcutaneous, Every 12 hours scheduled, First dose on Thu12/03/24 at 1800, Notify prescriber if INR greater than 1.9, hemoglobin less than 10 mg/dL, aPTT greater than 40 seconds, and/or platelet count less than 100,000/mm Look-alike/sound-alike medication - verify indication for use. Observe for bleeding. Start: 04-29-2024 End: 04-29-2024 500 Units, Intravenous, [...] ml insulin detemir 100 unt/ml pen injector (16 sources) Insulin Analog Start: 01-29-2019 End: 08-05-2019 inject 10 [IU] by subcutaneous injection once daily Insulin Detemir U-100 (Levemir Flextouch U100 Insulin) 100 unit/mL (3 mL) Insulin Pen Discontinued [...] [IU] by ramirez bcutaneous injection once daily 3 ml insulin lispro 100 unt/ml pen injector (20 sources) Insulin Analogue Start: 12-05-2024 End: 12-05-2024 inject 400 mg by subcutaneous injection once daily, then inject 2 [IU] by subcutaneous injection 15 minutes after mealtime 2-8 Units, subcutaneous, Nightly, First dose (after last modification) on Thu12/05/24 at 2200, Bedtime hyperglycemia dosing. For blood glucose 201-250 mg/dL, give 2 unit. For blood glucose 251-300 mg/dL, give 4 units. For blood glucose 301-350 mg/dL, give 6 units. For blood glucose 351-400 mg/dL, give 8 units. Give even if NPO or meals skipped. Do NOT give more often than every 4 hours when NPO. Notify prescriber if blood glucose greater than 400 mg/dL. Look-alike/sound-alike medication - verify indication for use. Prime with 2 units of insulin prior to administration. Prandial/supplemental Insulin. Pre-filled pens stable 28 days at room temperature. Insulin lispro should be administered within 15 minutes before or immediately after a meal. Start: 12-05-2024 inject 2-10 [IU] by subcutaneous injection four times daily at mealtime insulin lispro (HumaLOG) 100 unit/mL insulin pen Inject 2-10 Units under the skin 4 (four) times a day with meals and nightly. 15 mL 12 12/05/2024 Active Start: 12-03-2024 End: 12-05-2024 inject 400 mg by subcutaneous injection once daily, then inject 2 [IU] by subcutaneous injection 15 minutes after mealtime 1-4 Units, subcutaneous, Nightly, First dose on 12/03/24 at 2200, Bedtime hyperglycemia dosing. For blood glucose 201-250 mg/dL, give 1 unit. For blood glucose 251-300 mg/dL, give 2 units. For blood glucose 301-350 mg/dL, give 3 units. For blood glucose 351-400 mg/dL, give 4 units. Give even if NPO or meals skipped. Do NOT give more often than every 4 hours when NPO. Notify prescriber if blood glucose greater than 400 mg/dL. Look-alike/sound-alike medication - verify indication for use. Prime with 2 units of insulin prior to administration. Prandial/supplemental Insulin. Pre-filled pens stable 28 days at room temperature. Insulin lispro should be administered within 15 minutes before or immediately after a meal. Start: 12-03-2024 End: 12-05-2024 inject 400 mg by subcutaneous injection three times daily at mealtime, then inject 2 [IU] by subcutaneous injection 15 minutes after mealtime 2-10 Units, subcutaneous, 3 times daily with meals, First dose (after last modification) on 12/04/24 at 1700, Daytime hyperglycemia dosing. For blood glucose 151-200 mg/dL, give 2 unit. For blood glucose 201-250 mg/dL, give 4 units. For blood glucose 251-300 mg/dL, give 6 units. For blood glucose 301-350 mg/dL, give 8 units. For blood glucose 351-400 mg/dL, give 10 units. Give even if NPO or meals skipped. Do NOT give more often than every 4 hours when NPO. Notify prescriber if blood glucose greater than 400 mg/dL. Look-alike/sound-alike medication - verify indication for use. Prime with 2 units of insulin prior to administration. Prandial/supplemental Insulin. Pre-filled pens stable 28 days at room temperature. Insulin lispro should be administered within 15 minutes before or immediately after a meal. Start: 04-28-2024 inject 10 [IU] by ramirez bcutaneous injection once 10 Units, Subcutaneous, Once, On Danelle 04/28/24 at 0630, For 1 dose Start: 04-27-2024 End: 04-29-2024 0-30 Units, Subcutaneous, 3 times daily before meals, First dose (after last modification) on 04/27/24 at 0730, * Dose should be given [...] Calculator, use: Insulin SC MEALtime PREprandial Start: 02-18-2023 End: 02-20-2023 0-30 Units, Subcutaneous, 3 times daily before meals, First dose on 02/18/23 at 0730 Continue to administer as long [...] Date: 04/07/22 Status: Completed Start: 09-07-2018 End: 12-05-2024 Start: 09-07-2018 Start: 09-07-2018 Insulin Lispro (Admelog U-100 Insulin [...] day before meals Sliding Scale 0 Active insulin lispro (AdmeLOG,HumaLOG) injection 0-15 Units (1 source) Start: 04-27-2024 End: 04-29-2024 insulin lispro (AdmeLOG,HumaLOG) injection 0-15 Units Insulin Pump Cart,Auto,Bt,G6/7 (Omnipod 5 G6-G7 Pods (Gen 5)) cartridge (1 source) Start: 08-29-2024 End: 08-29-2024 Insulin Pump Cart,Auto,Bt,G6/7 (Omnipod 5 G6-G7 Pods (Gen 5)) cartridge Discontinued EACH SQ August 29, 2024 12:00am August 29, 2024 1:56pm 100 ml insulin, regular, human 1 unt/ml injection (2 sources) Insulin Start: 12-03-2024 End: 12-03-2024 inject 400 mg by subcutaneous injection every hour 0.2-54 Units/hr (0.2-54 mL/hr), intravenous, Continuous, Starting on 12/03/24 at 0745, Insulin Infusion Orders: Initiating Infusion: Use the patient's current blood glucose result and guidelines in Table A Column 2 to initiate infusion. If subcutaneous rapid-acting insulin is administered with meals, stay in the same column at the same rate for the next 2 hours. Rules for Column changes after initiating drip: Determine hourly drip rate by comparing the current blood glucose result to previous blood glucose result with guidelines in Table B to adjust insulin infusion. Rules for Column 7-9 changes: use the patient's current blood glucose result and guidelines in Table B and Table C to adjust high dose insulin infusion. Stop Insulin Infusion for potassium level 3.3 mmol/L or less. *Do not change insulin drip rate for 2 hours if correction scale given for meal. Notify prescriber if blood glucose greater than 400 mg/dL. Look-alike/sound-alike medication. Verify indication for use. Start: 03-24-2024 End: 03-25-2024 iohexol (OMNIPAQUE) 300 MG/ML injection (1 source) Start: 10-07-2022 End: 10-07-2022 iohexol (OMNIPAQUE) 300 MG/ML injection levETIRAcetam 500 mg oral tablet (20 sources) Anti-epilepti c Agent Start: 12-03-2024 End: 12-05-2024 take 750 mg by mouth twice daily 750 mg, oral, 2 times daily, First dose on Thu12/03/24 at 0900, Look-alike/sound-al carmen medication - verify indication for use. Start: 01-14-2024 End: 01-18-2024 take 1000 mg by mouth twice daily 1,000 mg, Oral, 2 times daily, First dose on Danelle 01/14/24 at 1100 Start: 03-29-2023 End: 03-30-2023 1,000 mg, Oral, 2 times mike y, First dose on Thu03/29/23 at 2100 Do Not Crush or Chew [...] times a day . 60 tablet 09/22/2024 Active Start: 09-12-2022 take 1 tablet by [...] BID, # 60 tab(s), Refills(s) 0, Pharmacy: [facility] 1986, 157, cm, 02/27/22 12:02:00 EDT, Height/Length [...] Start Date: 03/14/21 Status: Ordered Start: 08-04-2019 Start: 08-04-2019 take 750 mg by mouth [...] Active take 1 tablet by eduardo th in the morning, then take 1 tablet by mouth at bedtime levETIRAcetam (KEPPRA) 750 mg tablet Take 1 tablet (750 mg total) by mouth in the morning and 1 tablet (750 mg total) before bedtime. Active levothyroxine sodium 0.075 mg oral tablet (20 sources) l-Thyroxine Start: 12-03-2024 End: 12-05-2024 75 mcg, oral, Daily, First d ose on 12/03/24 at 0900, Look-alike/sound-alike medication. Verify indication for use Administer on empty stomach at least ONE hour before or TWO hours after food Enteral Feeding: For 7 days or less of tube feeding- do NOT hold tube feedings, after 7 days- hold tube feedings ONE hour before and ONE hour after administration DOES NOT APPLY TO NEONATES Monitor thyroid function tests weekly Start: 04-27-2024 End: 04-29-2024 take 30 mL [...] 1 tablet by eduardo th once daily Synthroid 75 mcg (0.075 mg) Tab 75 mcg = 1 tab(s), Oral, Daily, # 30 tab(s), Refills(s) 0 Start Date: 04/07/22 Status: Ordered Start: 09-30-2021 End: 12-29-2021 Synthroid 75 mcg Tab 75 mcg = 1 tab(s), Oral, Daily, take on an empty stomach from meds, vitamins, food by 60 minutes, X 90 day(s), # 90 tab(s), Refills(s) 0, Pharmacy: [facility] 1986, 158, cm, 09/30/21 14:00:00 EDT, Height/Length Dosing, 112.8, kg, 09/30... Start Date: 09/30/21 Stop Date: 12/29/21 Status: Ordered Start: 06-04-2020 End: 06-05-2020 take 75 ug by mouth once daily 75 mcg, Oral, Daily, First dose on 06/04/20 at 1400 For patients on continuous tube feed: Hold TF from 1 hr before until 1 hr after each dose. TF rate may need adjustment to meet caloric needs. Start: 04-26-2016 End: 08-02-2024 take 1 tablet by mouth once daily Levothyroxine So dium (LEVOTHYROXINE PO) Take 75 tablets by mouth daily. Active lidocaine 40 mg/ml topical cream (20 sources) Antiarrhythmic, Amide Local Anesthetic Start: 09-22-2023 End: 09-21-2024 lidocaine (LMX) 4 % cream Apply topically 3 (three) times a day . 90 g 3 09/22/2023 08/02/2024 Discontinued (Therapy completed) Start: 09-07-2018 End: 03-24-2019 Lidocaine 5 % Ointment Disco ntinued 1 APPLIC TOPICAL Twice daily as needed for Pain September 07, 2018 12:00am March 24, 2019 [...] 01-29-2019 Lurasidone (Latuda) 20 mg tablet Discontinued January 22, 2019 12:00am January 29, 2019 [...] Oral, Nightly PRN, Sle ep, Starting on Thu01/12/24 at 1823, If still awake in 1 [...] 2014 1:01pm micafungin sodium 100 mg injection (7 sources) Echinocandin Antifungal Start: 01-29-2019 End: 03-24-2019 Micafungin 100 mg recon soln Discontinued 100 MG IV Q24H 10 January [...] morphine syringe 4 mg Start: 06-03-2020 End: 06-03-2020 morphine syringe 4 mg Start: 06-26-2017 End: [...] 29, 2024 1:56pm naloxone (NARCAN) 4 mg/actuation [place] (13 sources) Start: 04-14-2024 End: 08-02-2024 naloxone (NARCAN) 4 mg/actua tion [place] Administer 1 spray into one nostril for known or suspected opioid overdose. If patient worsens or does not respond, may repeat in 2-3 minutes. . 2 each 04/14/2024 08/02/2024 Discontinued (Therapy completed) Start: 04-14-2024 naloxone (NARC AN) 4 mg/actuation [place] Administer 1 spray into one nostril for known or suspected opioid overdose. If patient worsens or does not respond, may repeat in 2-3 minutes. . 2 each 04/14/2024 Start: 04-14-2024 naloxone (NARC AN) 4 mg/actuation [place] Administer 1 spray into one nostril for known or suspected opioid overdose. If patient worsens or does not respond, may repeat in 2-3 minutes. . 2 each 04/14/2024 Suspended Start: 04-14-2024 naloxone (NARC AN) 4 mg/actuation [place] Administer 1 spray into one nostril for [...] 0.1 mg naratriptan 2.5 mg oral tablet (7 sources) Serotonin-1b and Serotonin-1d Receptor Agonist Start: 07-23-2018 End: 09-07-2018 Naratriptan 2.5 mg Tablet Discontinued As Directed July 23, 2018 1:00am September 07, 2018 2:57pm Start: 07-23-2018 End: 09-07-2018 Naratriptan Discontinued TAB LET As Directed July 23, 2018 1:00am September [...] PRN, chest pain, Starting on 03/29/23 at 1432 For chest pain. May give [...] 5 DAYS 09/26/2022 Active nystatin (MYCOST ATIN) 709591 UNIT/GM cream Apply topically 2 times daily Apply topically 2 times daily. 0 Active nystatin (MYCOST ATIN) 625544 UNIT/GM powder Apply topically 4 times daily [...] Discontinued (Non-compliance (Suppress CancelRx Message to Pharmacy)) 2 ml ondansetron 2 mg/ml injection (20 sources) Serotonin-3 Receptor Antagonist Start: 12-04-2024 End: 12-05-2024 take 4 mg intravenously every six hours as needed for nausea and vomiting 4 mg, intravenous, Every 6 hours PRN, nausea, vomiting, Starting on 12/04/24 at 1245, Intravenous administration preferred to be given over 2-5 minutes. Start: 04-27-2024 End: 04-29-2024 take 4 mg intravenously every six hours as needed for nausea and vomiting 4 mg, Intravenous, Every 6 hours PRN, nausea, vomiting, Starting on 04/27/24 at 0109 Start: 03-25-2024 End: 04-04-2024 take [...] Nausea/Vomiting, # 6 tab(s), Refills(s) 0, Pharmacy: [facility] [place] [id number] Start Date: 11/23/18 Status: Ordered Start: 07-23-2018 End: 09-07-2018 take 1 tablet by mouth four times daily as needed for nausea and vomiting Ondansetron 4 mg Tablet,Disintegrating Discontinued 4 MG PO Four times daily as needed for Nausea And Vomiting July 23, 2018 1:00am September 07, 2018 2:58pm Start: 07-06-2014 End: 02-22-2015 take 2 tablets by mouth every eight hours as needed for nausea Ondansetron Hcl (Zofran) 4 MG tablet Discontinued 8 MG PO Q8H as needed for Nausea / Vomiting July 06, 2014 2:53pm February 22, 2015 7:34pm ondansetron (ZOFRAN-ODT) disintegrating tablet 4 mg (4 [...] injection 60 mg 60 mg, Intramuscular, Once, 06/26/17 at 1920, For 1 dose Given 06/26/2017 19:23 EST 60 mg Left Ventrogluteal oxybutynin chloride 5 mg oral tablet (20 sources) Cholinergic Muscarinic Antagonist Start: 10-20-2017 End: 03-24-2019 take 1 tablet by mouth twice daily Oxybutynin Chloride 5 mg Tablet Discontinued 5 MG PO Twice daily September [...] chloride 20 meq extended release oral tablet (15 sources) Start: 03-31-2024 End: 03-31-2024 Start: 10-03-2021 End: 10-17-2021 take 1 tablet by mouth twice daily at mealtime potassium chloride 20 mEq ER Tab 20 mEq = 1 tab(s), Oral, BID, with a full glass of water with food, X 14 day(s), # 28 tab(s), Refills(s) 0, Pharmacy: [facility] 1984, 158, cm, 09/30/21 14:00:00 EDT, Height/Length Dosing, 112.8, kg, 09/30/21 14:00:00 EDT, Weight Dosing Start Date: 10/03/21 Stop Date: 10/17/21 Status: Ordered Start: 08-05-2019 End: 06-05-2020 potassium chloride 20 mEq Tb ER 20 mEq . 0 08/05/2019 06/05/2020 Discontinued (Stop Taking at Discharge) Start: 08-05-2019 End: 08-20-2022 take 1 tablet by mouth once daily potassium chloride 20 mEq tablet Discontinued 20 MEQ PO Daily August 05, 2019 12:00am August 05, 2019 3:09pm take 1 capsule by [facility] every twenty-four hours Potassium Chloride 10 MEQ 1 capsule with food Orally Once a day Active 1000 ml potassium chloride 0.02 meq/ml / sodium chloride 9 mg/ml injection (1 source) Start: 12-03-2024 End: 12-04-2024 take 100 mL intravenously every hour 100 mL/hr, intravenous, Continuous, Starting on 12/03/24 at 0745, For 1 day, For blood glucose greater than 250mg/dL. Once IV fluid is changed to dextrose-containing formulation, DO NOT change to [id number] IV fluid if blood glucose exceeds 250 mg/dL. promethazine hydrochloride 25 mg oral tablet (20 sources) Phenothiazine Start: 08-20-2022 End: 10-13-2023 take 1 tablet by mouth every six hours as needed for nausea promethazine (PHENERGAN) 25 MG tablet Take 1 (one) tablet (25 mg total) by mouth every 6 (six) hours as needed for nausea . 10 tablet 07/31/2023 10/13/2023 Discontinued (Therapy completed) Start: 08-20-2022 Promethazine A ctive MG TABLET August 20, 2022 12:00am Start: 01-24-2022 take 1 tablet by eduardo th three times daily promethazine 25 mg Tab 25 mg = 1 tab(s), Oral, TID, # 15 tab(s), Refills(s) 0, Pharmacy: [id number], 157, cm, 01/24/22 10:48:00 EDT, Height/Length Dosing, 115, kg, 01/24/22 10:48:00 EDT, Weight Dosing Start Date: 01/24/22 Status: Ordered Start: 07-23-2018 End: 09-07-2018 take 1 tablet by mouth every six hours as needed for nausea Promethazine 25 mg Tablet Discontinued 25 MG PO Every 6 hours as needed for Nausea July 23, 2018 1:00am September 07, 2018 2:59pm promethazine (Ph energan) 25 MG tablet every 12 (twelve) hours. Active QUEtiapine 200 mg oral tablet (20 sources) Atypical Antipsychotic Start: 12-03-2024 End: 12-05-2024 take 800 mg by mouth once daily 800 mg, oral, Nightly, First dose on 12/03/24 at 2200, Look-alike/sound-alike medication - verify indication for use. Start: 08-29-2024 Quetiapine 400 mg tablet Active MG TABLET August [...] day(s), # 8 tab(s), Refills(s) 0, Pharmacy: [facility] 1986, 157, cm, 02/21/22 14:56:00 EDT, Height/Length Dosing, 115, kg, 02/21/22 14:56:00 EDT, Weight Dosing Start Date: 02/21/22 Stop Date: 02/25/22 Status: Ordered Start: 06-04-2020 End: 06-05-2020 take 800 mg by mouth once daily 800 mg, Oral, Nightly, First dose on Thu06/04/20 at 2100 May cause QT interval prolongation. Start: 08-04-2019 End: 05-27-2024 take 2 tablets by mouth once daily QUEtiapine (SEROQUEL) 400 MG tablet Indications: Bipolar 1 disorder (HCC) , Insomnia, unspecified type Take 2 (two) tablets (800 mg total) by mouth nightly . 60 tablet 05/27/2024 Active Start: 08-04-2019 take 800 mg by mouth at bedtim e Quetiapine Active 800 MG PO Bedtime August 04, 2019 12:00am Start: 01-29-2019 End: 08-04-2019 take 2 tablets by mouth once daily at bedtime Quetiapine 25 mg Tablet Discontinued 50 MG PO Daily at bedtime 0 January 29, 2019 12:00am August 04, 2019 8:20pm Start: 01-29-2019 End: 08-04-2019 take 50 mg by mouth once daily at bedtime Quetiapine Discontinued 50 MG PO Daily at bedtime 0 January 29, 2019 12:00am August 04, 2019 8:20pm Start: 07-23-2018 End: 01-29-2019 take 600 mg by mouth at bedtime Quetiapine Discontinue d 600 MG PO Bedtime July 23, 2018 1:00am January 29, 2019 11:28am Start: 10-20-2017 End: 01-29-2019 take 2 tablets by mouth at bedtime Quetiapine 300 mg tablet Discontinued 600 MG PO Bedtime July 23, 2018 1:00am January 29, 2019 11:28am Start: 01-21-2017 QUEtiapine 50 MG Tab Indications: Atrial fibrillation, unspecified type , SSS (sick sinus syndrome) take 1 tablet by mouth at bedtime.. 30 tablet 01/21/2017 Active take 4 tablets by mo uth once daily QUEtiapine (SEROquel) 200 mg tablet Take 4 tablets (800 mg total) by mouth nightly. Active take 1 tablet by eduardo th once daily QUEtiapine (SEROQUEL XR) 50 MG extended release tablet Take 50 mg by mouth nightly 0 Active take 1 tablet by eduardo th every twenty-four hours QUEtiapine Fumarate 300 MG 1 tablet Orally Once a day for 30 day(s) Active regadenoson (LEXISCAN) injection 0.4 mg (1 [...] source) Anticholinergic Start: 03-25-2024 End: 03-28-2024 sennosides, detention 8.6 mg oral tablet (4 sources) Start: 04-27-2024 End: 04-29-2024 take 1 tablet by mouth once daily 17.2 mg (2 tablet), Oral, Nightly, First dose on Thu04/27/24 at 0200, For 5 days Start: 01-12-2024 End: 01-18-2024 Start: 03-29-2023 End: 03-30-2023 take 1 tablet by mouth twice daily as needed for constipation 8.6 mg (1 tablet), Oral, 2 times daily PRN, constipation, Starting on Thu03/29/23 at 1432 Start: 02-18-2023 End: 02-20-2023 take 1 tablet by mouth twice daily as needed for constipation 8.6 mg (1 tablet), Oral, 2 times daily PRN, constipation, Starting on Thu02/18/23 at 0028 Sodium Chloride (20 sources) Start: 12-05-2024 End: 12-05-2024 sodium chloride 0.9 % flush 20 mL Start: 12-03-2024 End: 12-04-2024 take 100 mL intravenously every hour 100 mL/hr, intravenous, Continuous, Starting on 12/03/24 at 1715, For 1 day Start: 12-03-2024 End: 12-03-2024 1,000 mL, intravenous, at 49 2 mL/hr, Administer over 122 Minutes, Once, On 12/03/24 at 1715, For 1 dose Start: 12-03-2024 End: 12-05-2024 3 mL, intravenous, Every 12 hours scheduled, First dose on 12/03/24 at 0230 Start: 12-03-2024 End: 12-05-2024 3 mL, intravenous, As needed , line care, before and after each intermittent use, Starting on 12/03/24 at 0216 Start: 12-03-2024 End: 12-05-2024 take 25 mL intravenously every hour as needed 25 mL, intravenous, at 100 mL/hr, Administer over 15 Minutes, As needed, line care, line care after IVPB administration, Starting on 12/03/24 at 0216 Start: 04-29-2024 End: 04-29-2024 Starting on Thu04/29/24 at 1 345, For 1 dose, YVETTE CANCHOLA: cabinet override [...] 0, START TONIGHT; drink plenty of fluids, [facility] 1986, 157, cm, 09/12/22 13:52:00 EDT, Height/Length Dosing, 113, kg, 09/12/22 13:52:00 EDT, Weight Dosing Start Date: 09/15/22 Stop Date: 09/20/22 Status: Ordered Start: 05-15-2022 End: 05-22-2022 take 1 tablet by mouth twice daily Bactrim D.S. 800 mg-160 mg Tab 1 tab(s), Oral, BID for 7 day(s), 14 tab(s), Refill(s) 0, [facility] 1985, 157, cm, 05/15/22 16:23:00 EST, [...] PO Q8H as needed for pain 7 3 November 28, 2022 12:00am August 29, 2024 1:56pm Start: 09-12-2022 take 1 tablet by eduardo th once daily as needed for pain traMADOL 50 mg Tab 50 mg = 1 tab(s), Oral, Daily, PRN for pain, # 30 tab(s), Refills(s) 0 Start Date: 09/12/22 Status: Ordered urea 400 mg/ml topical cream (7 sources) Start: 10-23-2023 End: 11-22-2023 urea (CARMOL) [...] Date: 11/05/18 Status: Ordered Start: 09-09-2018 End: 07-12-2025 take 1 tablet by mouth twice daily Divalproex 500 mg Tablet,Delayed Release (Dr/Ec) Discontinued 500 MG PO Twice daily 60 September 09, 2018 12:00am August 20, 2022 3:10am Start: 09-07-2018 End: 09-09-2018 take 1 tablet by mouth twice daily Divalproex 250 mg Tablet,Delayed Release (Dr/Ec) Discontinued 250 MG PO Twice daily September 07, 2018 12:00am September 09, 2018 1:12pm 250 ml vancomycin 5 mg/ml injection (8 sources) Glycopeptide Antibacterial Start: 03-25-2024 End: 03-26-2024 take 1250 mg intravenously every twenty-four hours Start: 01-29-2019 End: 03-24-2019 take 1 g intravenously every eight hours Vancomycin 1.5 gram recon soln Discontinued 1 GM IV Q8H 10 January 29, 2019 12:00am March 24, 2019 8:31am Start: 01-29-2019 End: 03-24-2019 take 1 g intravenously every eight hours Vancomycin Discontinued 1 GM IV Q8H 10 January 29, 2019 12:00am March 24, 2019 8:31am 24 hr venlafaxine 150 mg extended release oral capsule (20 sources) Serotonin and Norepinephrine Reuptake Inhibitor Start: 10-20-2017 take 1 capsule by mouth once daily venlafaxine 150 mg Cap-ER 150 mg = 1 cap(s), Oral, Daily, Depression Start Date: 10/20/17 Status: Ordered Start: 10-20-2017 End: 03-24-2019 take 1 capsule by mouth once daily Venlafaxine 150 mg capsule,extended release 24hr Discontinued 150 MG PO Daily July 23, 2018 1:00am March 24, 2019 8:33am vitamin b12 1 mg oral tablet (20 sources) Vitamin B12 Start: 09-03-2023 End: 03-22-2024 take 1 tablet by mouth once daily cyanocobalamin (B-12) 1000 MCG tablet Indications: [facility] Take 1 (one) tablet (1,000 mcg total) by mouth daily Reasons: [facility]. 90 tablet 1 02/11/2024 03/22/2024 Discontinued (Therapy completed) take 1 tablet by mouth once mike y cyanocobalamin 500 MCG tablet Take 1 tablet by mouth daily. Active zinc oxide 50 mg/ml topical cream (1 source) Start: 08-02-2024 End: 08-02-2024 zinc oxide 5 % Crea Apply 1 Application topically daily . 177.4 mL 08/02/2024 08/02/2024 Discontinued (Therapy completed) zonisamide 100 mg oral capsule (8 sources) Anti-epilepti c Agent Start: 07-23-2018 End: [...] Signed Summary: Routine, Until discontinued, Starting on 03/27/24 at [...] the secondary infusion, Starting on Thu03/25/24 at 4, Run as Primary IV. NOT intended for [...] or stenosis of small artery] 09-16-2023 Chronic Acute myocardial infarction (2 sources) Non-ST elevation (NSTEMI) myocardial infarction; Translations: [Non-ST elevation (NSTEMI) myocardial infarction] Onset: 5 Chronic Adjustment disorders (1 source) Family tension; Translations: [Reaction to severe stress, unspecified] Chronic Administrative/social admission (2 sources) Encounter for issue of repeat prescription; Translations: [Drug seeking behavior ] Onset: 3 Episodic Anxiety disorders (20 sources) Anxiety; Translations: [Psychogenic syncope] Onset: 8 08-05-2013 Chronic Bacterial infection; unspecified site (20 sources) Other bacterial infections of unspecified site; Translations: [History of methicillin resistant Staphylococcus aureus infection] Onset: 5 Resolved: 3 08-05-2019 Episodic Blindness and vision defects (20 sources) Visual impairment; Translations: [Unqualified visual loss, left eye, normal vision right eye] Onset: 3 05-17-2023 Chronic Blindness and vision defects (7 sources) Eye / vision finding; Translations: [Unspecified visual disturbance] Onset: 6 05-25-2015 Episodic Cali (1 source) Burn Episodic Calculus of [...] Coronary atherosclerosis; Translations: [Atherosclerotic heart disease of sitka coronary artery without angina pectoris] Onset: 2 Chronic Diabetes mellitus with complications (20 sources) Type II diabetes mellitus uncontrolled; Translations: [Neuropathy due to diabetes mellitus] Onset: 5 Resolved: 5 06-04-2020 Chronic Diabetes mellitus without complication (20 sources) Type 2 diabetes mellitus; Translations: [Diabetes mellitus] Onset: 5 12-03-2014 Chronic Disorders of lipid metabolism (20 sources) Dyslipidemia; [...] Translations: [Essential hypertension] Onset: 5 12-03-2014 Chronic Fluid and electrolyte disorders (20 sources) Metabolic acidosis, normal anion gap (NAG); Translations: [Hypokalemia] Onset: 5 Resolved: 3 12-03-2014 Episodic Gastritis and duodenitis (2 sources) Gastritis; Translations: [...] SM] Onset: 2 Chronic Headache; including migraine (6 sources) Headache; including migraine; Translations: [HEADACHE UNSPECIFIED] Onset: 3 Hypertension with complications and secondary hypertension (20 sources) Hypertensive heart failure; Translations: [Hypertensive heart disease with heart failure] Onset: 1 12-02-2021 Chronic Infective arthritis and osteomyelitis (except that caused by tuberculosis or sexually transmitted disease) (20 sources) Osteomyelitis of forefoot; Translations: [Osteomyelitis, unspecified] Onset: 4 03-25-2024 Chronic Malaise and fatigue (20 sources) Left hemiparesis; Translations: [Weakness] Onset: 2 09-08-2018 Episodic Menopausal disorders (1 source) Hormone replacement therapy; Translations: [HORMONE REPLACEMENT THERAPY] Onset: 3 Episodic Miscellaneous mental health disorders (5 sources) Confusional state; 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] Onset: [...] sources) Long-term current use of insulin; Translations: [residential (current) use of insulin] Episodic Other aftercare (1 source) residential (current) use of aspirin; Translations: [PATTERNMAKER METAL CURRENT USE OF ASPIRIN] Onset: 3 Episodic Other aftercare (3 sources) Other medical terminologist (current) drug therapy; Translations: [OTH DETENTION CURRENT DRUG THERAPY] Onset: 3 Episodic Other aftercare (1 source) residential (current) use of oral hypoglycemic drugs; Translations: [DETENTION USE ORAL HYPOGLYCEMIC DX] Onset: 3 Episodic Other circulatory disease (2 sources) Device in situ; Translations: [Presence of other vascular implants and grafts] Chronic Other circulatory disease (4 sources) Hypothenar hammer syndrome; Translations: [Other specified peripheral vascular diseases] Onset: 5 12-05-2024 Chronic Other circulatory disease (1 source) Other specified peripheral vascular diseases; Translations: [Other specified peripheral vascular diseases] Onset: 5 Chronic Other circulatory disease (1 source) History [...] [Repeated falls] Episodic Other connective tissue disease (7 sources) Pain in left toe(s); Translations: [Pain [...] leg] 08-26-2023 Episodic Other connective tissue disease (1 source) Pain of toe of left foot; Translations: [Pain in left toe(s)] 08-20-2022 Episodic Other ear and sense organ disorders [...] Onset: 4 Chronic Other nervous system disorders (6 sources) Abnormal gait; Translations: [Unspecified abnormalities of [...] instability, left ankle] Onset: 2 Episodic Other nutritional; endocrine; and metabolic disorders (5 sources) Hypomagnesemia; Translations: [Disorders of magnesium metabolism] [...] Chronic Other nutritional; endocrine; and metabolic disorders (6 sources) Hypomagnesemia; Translations: [Hypomagnesemia] Onset: 2 Chronic Other nutritional; endocrine; and metabolic disorders (4 sources) Hypophosphatemia; Translations: [Other disorders of phosphorus metabolism] 08-21-2022 Chronic Other nutritional; endocrine; and metabolic disorders (3 sources) Other disorders of phosphorus metabolism; Translations: [Disorders of phosphorus metabolism] 08-22-2022 Chronic Other nutritional; endocrine; and metabolic [...] nutritional; endocrine; and metabolic disorders (3 sources) Severe obesity; Translations: [Morbid (severe) obesity due to excess calories] Onset: 7 08-25-2022 Chronic Other screening for suspected conditions (not mental disorders or infectious disease) (20 sources) Abnormal quantity of physiologic substance; Translations: [Culture positive for methicillin resistant Staphylococcus aureus] Onset: 5 04-26-2016 Episodic Comment on above: 2015- armpit and chi n- treated at [facility] in [place] 2014- armpit and chi n- treated at [facility] in [place] Other skin disorders (4 sources) Ingrowing nail; Translations: [Ingrowing nail] 08-20-2022 Episodic Other skin disorders (3 sources) Ingrowing nail; Translations: [Ingrowing nail] 08-22-2022 Episodic Otitis media and related conditions (3 sources) Acute suppurative otitis media without spontaneous rupture of ear drum; Translations: [Acute suppurative otitis media without spontaneous rupture of ear drum, left ear] 05-08-2023 Episodic Paralysis (1 source) Left hemiparesis Chronic Peripheral and visceral atherosclerosis (7 sources) Peripheral vascular disease; Translations: [Peripheral vascular disease, unspecified] 08-21-2022 Chronic Residual codes; unclassified (20 sources) Obstructive sleep apnea syndrome; Translations: [Obstructive sleep apnea (adult) (pediatric)] Onset: 2 07-29-2021 Chronic Residual codes; unclassified (20 sources) Sleep apnea 01-14-2016 Chronic Residual codes; unclassified (1 source) Insomnia; Translations: [Other insomnia] Chronic Residual codes; unclassified (1 source) Sleep apnea, unspecified; Translations: [SLEEP APNEA UNSPECIFIED] Onset: 3 Chronic Residual codes; unclassified (7 sources) Noncompliance with medication regimen; Translations: [Patient's other noncompliance with medication regimen] Onset: 2 Episodic Residual codes; unclassified (1 source) Altered mental status Episodic Residual codes; unclassified (6 sources) Pain; Translations: [Pain, unspecified] 09-07-2018 Episodic [...] conditions] Onset: 2 Episodic Residual codes; unclassified (5 sources) Staring; Translations: [Transient alteration of awareness] 09-06-2018 Episodic Residual codes; unclassified (1 source) Acquired absence of other specified parts of digestive tract; Translations: [ACQ ABSENCE OTH PART DIGESTV TRACT] Onset: 3 Episodic Residual codes; unclassified (1 source) Failed encounter; Translations: [No-show for appointment] 11-07-2024 Episodic Residual codes; unclassified (1 source) Pain, unspecified; Translations: [Pain, unspecified] Onset: 5 Episodic Retinal detachments; defects; vascular occlusion; and retinopathy (20 sources) Hemorrhage of left retina; Translations: [Retinal hemorrhage, left eye] Onset: 4 12-10-2023 Chronic Schizophrenia and other psychotic disorders (20 sources) Schizophrenia; Translations: [Schizophrenia, unspecified] Onset: 2 12-02-2021 Chronic Screening and history of mental health and substance abuse codes (1 source) Personal history of nicotine dependence; Translations: [PERSONAL HISTORY OF NICOTINE DEPEND] Onset: 3 Episodic Septicemia (20 sources) Sepsis; Translations: [Bacteremia caused by Gram-positive bacteria] Onset: 5 Resolved: 5 12-07-2014 Episodic Skin and subcutaneous tissue infections (20 sources) Cellulitis of chin ; Translations: [Abscess of chin] Onset: 5 Resolved: 3 12-07-2014 Episodic Spondylosis; intervertebral disc disorders; other back [...] [Contusion of left knee] Onset: 2 Episodic Syncope (20 sources) Syncope and collapse; Translations: [Syncope] Onset: 2 11-05-2018 Episodic Thyroid disorders (20 sources) Hypothyroidism; Translations: [Hypothyroidism, unspecified] Onset: 7 01-22-2019 Chronic Unclassified (3 sources) Suspected infectious disease; Translations: [MRSA (methicillin-resistant Staph aureus) carrier/suspected carrier] Onset: 5 12-01-2014 Unclassified (1 source) NICOTINE DEPEND CIGARETTES UNCOMP Onset: 9 Unclassified (1 source) OTH PATTERNMAKER METAL CURRENT DRUG THERAPY Onset: 9 Unclassified (1 source) TYPE 2 DM WITHOUT COMPLICATIONS Onset: 9 Unclassified (1 source) DETENTION CURRENT USE OF INSULIN Onset: 9 Unclassified (1 source) PATTERNMAKER METAL USE ORAL HYPOGLYCEMIC DX Onset: 9 Unclassified (1 source) PATTERNMAKER METAL CURRENT USE OF ASPIRIN Onset: 9 Unclassified (20 sources) Patient encounter status 08-22-2021 Unclassified (18 sources) Pain of joint of knee Onset: 2 12-02-2021 Unclassified (1 source) CONTACT W/AND (SUSP) EXPOS COVID-19; Translations: [CONTACT W/AND (SUSP) EXPOS COVID-19] Onset: 3 Unclassified (4 sources) COUGH, UNSPECIFIED; Translations: [COUGH, UNSPECIFIED] Onset: 3 Unclassified (1 source) LOW BACK PAIN, UNSPECIFIED; Translations: [LOW BACK PAIN, UNSPECIFIED] Onset: 3 Unclassified (1 source) Finding of sensation of abdomen 03-22-2024 Unclassified (1 source) Chronic pain of both knees 08-05-2024 Unclassified (1 source) Other intervertebral disc degeneration, [...] [Cough, unspecified] Onset: 4 Unclassified (1 source) Patient's noncompliance with other medical treatment and regimen due to unspecified reason; Translations: [Patient's noncompliance with other medical treatment and regimen due to unspecified reason] Onset: 5 Unclassified (1 source) Low back pain, unspecified; Translations: [Low back pain, unspecified] Onset: 5 Unclassified (1 source) Sudden vision loss Onset: 5 Urinary tract infections (20 sources) Acute cystitis with hematuria; Translations: [Urinary tract infectious disease] Onset: 7 Episodic Viral infection (20 sources) Human papilloma virus infection 11-14-2013 Episodic Past or Other Problems Problem Classification Problem Date Documented Da te Episodic/Chronic Abdominal pain (20 sources) Right lower quadrant pain; Translations: [Lower abdominal pain] Onset: 02-04-2008 Resolved: 02-03-2009 10-30-2021 Episodic Acute and unspecified renal failure (20 sources) Acute kidney failure, unspecified; Translations: [Acute injury of kidney] Onset: 12-03-2014 Resolved: 05-06-2023 12-07-2014 Episodic Cardiac dysrhythmias (20 sources) Palpitations; Translations: [Bradycardia] Onset: 01-30-2012 11-05-2018 Episodic Complications of surgical procedures or medical care (20 sources) Wound dehiscence; Translations: [Abdominal wound dehiscence, initial encounter] Onset: 03-22-2024 Resolved: 08-05-2024 03-22-2024 Episodic Conditions associated with dizziness or vertigo (20 sources) Dizziness; Translations: [Dizziness and giddiness] Onset: 01-01-2022 11-14-2020 Episodic Diabetes mellitus without complication (20 sources) Hyperglycemia, unspecified; Translations: [Insulin pump present] Onset: 03-31-2017 Episodic E Codes: Fall (1 source) Unspecified fall, initial encounter; Translations: [UNSPECIFIED FALL INITIAL ENCOUNTER] Onset: 12-02-2021 Episodic Headache; including migraine (20 sources) Headache; Translations: [Headache] Onset: 02-16-2008 11-14-2020 Episodic Immunizations and screening for infectious disease (20 sources) Contact with and (suspected) exposure to other viral communicable diseases; Translations: [Carrier or suspected carrier of Methicillin resistant Staphylococcus aureus] Onset: 12-01-2014 Resolved: 05-06-2023 Episodic Intestinal infection (1 source) Viral intestinal infection, unspecified; Translations: [VIRAL INTESTINAL INFECTION UNSPEC] Onset: 04-24-2022 Episodic Medical examination/evaluation (1 source) Encounter for preprocedural cardiovascular examination; Translations: [Encounter for preprocedural cardiovascular examination] Onset: 07-17-2017 Episodic Mood disorders (20 sources) Mood disorders Onset: 03-29-2024 Resolved: 12-03-2024 03-29-2024 Nausea and vomiting (12 sources) Nausea; Translations: [Nausea] Onset: 02-04-2008 Resolved: 02-03-2009 05-25-2015 Episodic Nonspecific chest pain (20 sources) Chest pain, unspecified; Translations: [Other chest pain] Onset: 02-16-2017 Resolved: 05-06-2023 Episodic Nutritional deficiencies (20 sources) Cobalamin deficiency; Translations: [Deficiency of other specified B group vitamins] Onset: 05-08-2023 05-08-2023 Episodic Other aftercare (7 sources) residential (current) use of insulin; Translations: [DETENTION CURRENT USE OF INSULIN] Onset: 10-22-2022 Episodic Other aftercare (1 source) terminal manager (current) use of 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/antip latelets; Translations: [DETENTION ANTITHROMBOT/ANTIPLAT LETS] Onset: 04-02-2022 Episodic Other aftercare (20 sources) Long-term current use of drug therapy; Translations: [Encounter for therapeutic drug level monitoring] Onset: 05-13-2024 Resolved: 08-05-2024 05-13-2024 Episodic Other aftercare (2 sources) Encounter for therapeutic drug level monitoring; Translations: [Encounter for therapeutic drug level monitoring] Onset: 05-13-2024 Episodic Other aftercare (2 sources) terminal manager (current) use of opiate analgesic; Translations: [terminal manager (current) use of opiate analgesic] Onset: 05-13-2024 [...] 09-09-2021 12-02-2021 Episodic Other connective tissue disease (5 sources) Pain in toe; Translations: [Pain in left toe(s)] Onset: 01-09-2024 08-20-2022 Episodic Other connective tissue disease (1 source) [...] [Other muscle spasm] Onset: 05-06-2023 Episodic Other connective tissue disease (2 sources) Other specified soft tissue disorders; Translations: [Other specified soft tissue disorders] Onset: 05-23-2024 Episodic Other connective tissue disease (2 sources) Other symptoms and signs involving the musculoskeletal system; Translations: [Other musculoskeletal symptoms referable to limbs] Onset: 03-05-2022 03-05-2022 Episodic Other ear and sense organ disorders (3 sources) Otalgia, left ear; Translations: [Otalgia, unspecified] Onset: 02-23-2009 Resolved: 03-15-2009 03-15-2009 Episodic Other female genital disorders (3 sources) Polyp of corpus uteri; Translations: [Polyp [...] Onset: 03-24-2024 Episodic Other lower respiratory disease (3 sources) Finding of respiration; Translations: [Other forms of dyspnea] Onset: 03-17-2008 Resolved: 02-03-2009 02-03-2009 Episodic Other lower respiratory disease (2 sources) Pleurodynia; Translations: [Pleurodynia] Onset: 02-11-2024 Episodic Other nervous system disorders (3 sources) Anesthesia of skin; Translations: [ANESTHESIA OF SKIN] Onset: 03-31-2022 Episodic Other non-traumatic joint disorders (20 sources) Pain in right knee; Translations: [Pain in joint, lower leg] Onset: 03-22-2024 02-04-2023 Episodic Other non-traumatic joint disorders (3 sources) Arthralgia of the ankle and/or foot; Translations: [Pain in unspecified ankle and joints of unspecified foot] Onset: 03-17-2008 Resolved: 02-03-2009 02-03-2009 Episodic Other non-traumatic joint disorders (4 sources) Pain in left knee; Translations: [Pain in left knee] Onset: 03-22-2024 Episodic Other nutritional; endocrine; and metabolic disorders [...] REGIMEN] Onset: 12-06-2021 Episodic Residual codes; unclassified (3 sources) Sleep disorder; Translations: [Sleep disorder, unspecified] Onset: 03-15-2009 03-15-2009 Episodic Residual codes; unclassified (3 sources) Noncompliance with treatment; Translations: [Noncompliance] Onset: 03-31-2017 03-31-2017 Episodic Residual codes; unclassified (20 sources) Family history of disorder of lung; Translations: [Family history of other diseases of the respiratory system] Onset: 09-03-2023 09-03-2023 Episodic Residual codes; unclassified (20 sources) Family history of dementia; Translations: [Family history of other mental and behavioral disorders] Onset: 09-03-2023 09-03-2023 Episodic Unclassified (1 source) Family history of ischemic heart disease and other diseases of the circulatory system; Translations: [Family history of ischemic heart disease and other diseases of the circulatory system] Onset: 02-16-2017 Episodic Unclassified (20 sources) Bipolar (qualifier value) 10-09-2021 Unclassified (2 sources) COUGH, UNSPECIFIED; Translations: [COUGH, UNSPECIFIED] Onset: 07-30-2022 Unclassified (1 source) Onset: 08-26-2023 08-26-2023 Unclassified (1 source) Other intervertebral disc degeneration, [...] initial encounter] Onset: 03-22-2024 Unclassified (1 source) Patient's noncompliance with other medical treatment and regimen due to unspecified reason; Translations: [Patient's noncompliance with other medical treatment and regimen due to unspecified reason] Onset: 11-04-2024 Unclassified (1 source) Low back pain, unspecified; Translations: [Low back pain, unspecified] Onset: 09-23-2024 Viral infection (1 source) COVID-19 Onset: 06-14-2021 Resolved: 06-14-2021 Results Test Name Value Interpretation Reference Range Facility Urine Cultureon 12-28-2024 Bacteria identified Cx Nom (U) <9,000 colonies/ml mixed bacterial skin contaminants 2 Days PERFORMED BY: [place] [address] PATHOLOGIST PODIATRIC ASSISTANT HARESH Cardenas [facility] Comment on above: Performed By: #### C UU #### [address] BASIC METABOLIC PANELon 11-22 Anion gap [Moles/Vol] 6 mmol/L Normal 5-15 [facility] Comment on above: Performed By: #### B EDG #### [facility] ([facility]) [address] [place] [address] VIR Calcium [Mass/Vol] 8.4 mg/dL Low 8.5-10.5 [facility] Comment on above: Performed By: #### B EDG #### [facility] ([facility]) [address] [place] [address] VIR Chloride [Moles/Vol] 111 mmol/L High 98-109 [facility] Comment on above: Performed By: #### B EDG #### [facility] ([facility]) [address] [place] [address] VIR CO2 [Moles/Vol] 22 mmol/L Normal 22-32 [facility] Comment on above: Performed By: #### B EDG #### [facility] ([facility]) [address] [place] [address] VIR Creatinine [Mass/Vol] 0.95 mg/dL Normal 0.40-1.00 [facility] Comment on above: Result Comment: METH OD TRACEABLE TO IDMS STANDARD Performed By: #### B EDG #### [facility] ([facility]) [address] [place] [address] VIR GFR/1.73 sq M.predicted among non-blacks MDRD (S/P/Bld) [Vol rate/Area] 74 mL/min/{1.73_m2} Normal >=60 [facility] Comment on above: Result Comment: Repo rted eGFR is based on the CKD-EPI 2020 equation that does not use a race coefficient. Performed By: #### B EDG #### [facility] ([facility]) [address] [place] [address] VIR Glucose [Mass/Vol] 225 mg/dL High 65-99 [facility] Comment on above: Performed By: #### B EDG #### [facility] ([facility]) [address] [place] [address] VIR Potassium [Moles/Vol] 4.6 mmol/L Normal 3.5-5.0 [facility] Comment on above: Performed By: #### B EDG #### [facility] ([facility]) [address] [place] [address] VIR Sodium [Moles/Vol] 139 mmol/L Normal 134-146 [facility] Comment on above: Performed By: #### B EDG #### [facility] ([facility]) [address] [place] [address] VIR Urea nitrogen [Mass/Vol] 17 mg/dL Normal 5-23 [facility] Comment on above: Performed By: #### B EDG #### [facility] ([facility]) [address] [place] [address] VIR BEDSIDE GLUCOSEon 12-05-2024 Glucose [Mass/Vol] 244 mg/dL High 65-99 [facility] Comment on above: Performed By: #### B EDG #### [facility] ([facility]) [address] [place] [address] VIR Glucose [Mass/Vol] 265 mg/dL High 65-99 [facility] Comment on above: Performed By: #### B EDG #### [facility] ([facility]) [address] [place] [address] VIR Basic Metabolic Panelon 11-22 Anion gap [Moles/Vol] 6 mmol/L 5 - 15 mmol/L [facility] Calcium [Mass/Vol] 8.4 mg/dL Low 8.5 - 10. 5 mg/dL [facility] Chloride [Moles/Vol] 111 mmol/L High 98 - 10 9 mmol/L [facility] CO2 [Moles/Vol] 22 mmol/L 22 - 32 mmol/L [facility] Creatinine [Mass/Vol] 0.95 mg/dL 0.40 - 1.00 mg/dL [facility] Comment on above: METHOD TRACEABLE TO IDMS STANDARD EGFR Non-Race Dependent 74 - PINF [facility] Comment on above: Reported eGFR is bas ed on the CKD-EPI 2020 equation that does not use a race coefficient. Glucose [Mass/Vol] 225 mg/dL High 65 - 99 mg/dL [facility] Interpretation and review of laboratory results Abnormal [facility] Potassium [Moles/Vol] 4.6 mmol/L 3.5 - 5.0 mmol/L [facility] Sodium [Moles/Vol] 139 mmol/L 134 - 146 mmol/L [facility] Urea nitrogen [Mass/Vol] 17 mg/dL 5 - 23 mg/dL [facility] Bedside Glucose *Place/Obtai n serum glucose if >500 per glucometer.on 12-05-2024 Glucose [Mass/Vol] 244 mg/dL High 65 - 99 mg/dL [facility] Interpretation and review of laboratory results Abnormal [facility] Glucose [Mass/Vol] 265 mg/dL High 65 - 99 mg/dL [facility] Interpretation and review of laboratory results Abnormal [facility] BASIC METABOLIC PANELon 11-22 Anion gap [Moles/Vol] 8 mmol/L Normal 5-15 [facility] Comment on above: Performed By: #### B EDG #### [facility] ([facility]) [address] [place] [address] VIR Calcium [Mass/Vol] 7.6 mg/dL Low 8.5-10.5 [facility] Comment on above: Performed By: #### B EDG #### [facility] (TT) [address] [place] [address] VIR Chloride [Moles/Vol] 111 mmol/L High 98-109 [facility] Comment on above: Performed By: #### B EDG #### [facility] ([facility]) [address] [place] [address] VIR CO2 [Moles/Vol] 20 mmol/L Low 22-32 [facility] Comment on above: Performed By: #### B EDG #### [facility] ([facility]) [address] [place] [address] VIR Creatinine [Mass/Vol] 0.89 mg/dL Normal 0.40-1.00 [facility] Comment on above: Result Comment: METH OD TRACEABLE TO IDMS STANDARD Performed By: #### B EDG #### [facility] ([facility]) [address] [place] [address] VIR GFR/1.73 sq M.predicted among non-blacks MDRD (S/P/Bld) [Vol rate/Area] 80 mL/min/{1.73_m2} Normal >=60 [facility] Comment on above: Result Comment: [facility] eGFR is based on the CKD-EPI 2020 equation that does not use a race coefficient. Performed By: #### B EDG #### [facility] ([facility]) [address] [place] [address] VIR Glucose [Mass/Vol] 253 mg/dL High 65-99 [facility] Comment on above: Performed By: #### B EDG #### [facility] ([facility]) [address] [place] [address] VIR Potassium [Moles/Vol] 4.3 mmol/L Normal 3.5-5.0 [facility] Comment on above: Performed By: #### B EDG #### [facility] ([facility]) [address] [place] [address] VIR Sodium [Moles/Vol] 139 mmol/L Normal 134-146 [facility] Comment on above: Performed By: #### B EDG #### [facility] ([facility]) [address] [place] [address] VIR Urea nitrogen [Mass/Vol] 15 mg/dL Normal 5-23 [facility] Comment on above: Performed By: #### B EDG #### [facility] ([facility]) [address] [place] [address] VIR BEDSIDE GLUCOSEon 12-04-2024 Glucose [Mass/Vol] 348 mg/dL High [address] [place] [address] Comment on above: Performed By: #### B EDG #### [facility] ([facility]) [address] [place] [address] VIR Glucose [Mass/Vol] 200 mg/dL High [address] [place] [address] Comment on above: Performed By: #### B EDG #### [facility] ([facility]) [address] [place] [address] VIR Glucose [Mass/Vol] 348 mg/dL High [address] [place] [address] Comment on above: Performed By: #### B EDG #### [facility] ([facility]) [address] [place] [address] VIR Glucose [Mass/Vol] 251 mg/dL High [address] [place] [address] Comment on above: Performed By: #### B EDG #### [facility] ([facility]) [address] [place] [address] VIR Glucose [Mass/Vol] 262 mg/dL High [address] [place] [address] Comment on above: Performed By: #### B EDG #### [facility] ([facility]) [address] [place] [address] VIR Basic Metabolic Panelon 11-22 Anion gap [Moles/Vol] 8 mmol/L 5 - 15 mmol/L [facility] Calcium [Mass/Vol] 7.6 mg/dL Low 8.5 - 10. 5 mg/dL [facility] Chloride [Moles/Vol] 111 mmol/L High 98 - 10 9 mmol/L [facility] CO2 [Moles/Vol] 20 mmol/L Low 22 - 32 mmol/L [facility] Creatinine [Mass/Vol] 0.89 mg/dL 0.40 - 1.00 mg/dL [facility] Comment on above: METHOD TRACEABLE TO IDMS STANDARD EGFR Non-Race Dependent 80 - PINF [facility] Comment on above: Reported eGFR is bas ed on the CKD-EPI 2020 equation that does not use a race coefficient. Glucose [Mass/Vol] 253 mg/dL High 65 - 99 mg/dL [facility] Interpretation and review of laboratory results Abnormal [facility] Potassium [Moles/Vol] 4.3 mmol/L 3.5 - 5.0 mmol/L [facility] Sodium [Moles/Vol] 139 mmol/L 134 - 146 mmol/L [facility] Urea nitrogen [Mass/Vol] 15 mg/dL 5 - 23 mg/dL [facility] Bedside Glucose *Place/Obtai n serum glucose if >500 per glucometer.on 12-04-2024 Glucose [Mass/Vol] 348 mg/dL High 65 - 99 mg/dL [facility] Interpretation and review of laboratory results Abnormal [facility] Glucose [Mass/Vol] 200 mg/dL High 65 - 99 mg/dL [facility] Interpretation and review of laboratory results Abnormal [facility] Glucose [Mass/Vol] 348 mg/dL High 65 - 99 mg/dL [facility] Interpretation and review of laboratory results Abnormal [facility] Glucose [Mass/Vol] 251 mg/dL High 65 - 99 mg/dL [facility] Interpretation and review of laboratory results Abnormal [facility] Glucose [Mass/Vol] 257 mg/dL High 65 - 99 mg/dL [facility] Interpretation and review of laboratory results Abnormal [facility] Glucose [Mass/Vol] 262 mg/dL High 65 - 99 mg/dL [facility] Interpretation and review of laboratory results Abnormal [facility] CBC WITH AUTO DIFFERENTIALon 12-04-2024 BASOPHILS ABSOLUTE COUNT (10*3/UL) BY AUTOMATED COUNT 0.1 10*3/uL Normal 0.0-0.2 [facility] Comment on above: Performed By: #### B EDG #### [facility] (TT) [address] [place] [address] VIR BASOPHILS RELATIVE PERCENT BY AUTOMATED COUNT 1.1 % Normal [facility] Comment on above: Performed By: #### B EDG #### [facility] ([facility]) [address] [place] [address] VIR CELLAVISION DIFFERENTIAL TYPE AUTOMATED DIFFERENTIAL Normal [facility] Comment on above: Performed By: #### B EDG #### [facility] ([facility]) [address] [place] [address] VIR Eosinophils (Bld) [#/Vol] 0.2 10*3/uL Normal 0.0-0.4 [facility] Comment on above: Performed By: #### B EDG #### [facility] ([facility]) [address] [place] [address] VIR EOSINOPHILS RELATIVE PERCENT BY AUTOMATED COUNT 3.0 % Normal [facility] Comment on above: Performed By: #### B EDG #### [facility] ([facility]) [address] [place] [address] VIR Erythrocyte distribution width (RBC) [Ratio] 13.5 % Normal 11.5-15 [facility] Comment on above: Performed By: #### B EDG #### [facility] ([facility]) [address] [place] [address] VIR Hematocrit (Bld) [Volume fraction] 32.7 % Low 35-47 [facility] Comment on above: Performed By: #### B EDG #### [facility] ([facility]) [address] [place] [address] VIR Hemoglobin (Bld) [Mass/Vol] 11.2 g/dL Low 11.7-15.5 [facility] Comment on above: Performed By: #### B EDG #### [facility] ([facility]) [address] [place] [address] VIR LYMPHOCYTES ABSOLUTE COUNT (10*3/UL) BY AUTOMATED COUNT 2.0 10*3/uL Normal 1.0-3.5 [facility] Comment on above: Performed By: #### B EDG #### [facility] ([facility]) [address] [place] [address] VIR LYMPHOCYTES RELATIVE PERCENT BY AUTOMATED COUNT 38.3 % Normal [facility] Comment on above: Performed By: #### B EDG #### [facility] ([facility]) [address] [place] [address] VIR MCH (RBC) [Entitic mass] 30.4 pg Normal 27-34 [facility] Comment on above: Performed By: #### B EDG #### [facility] ([facility]) [address] [place] [address] VIR MCHC (RBC) [Mass/Vol] 34.1 g/dL Normal 32-36 [facility] Comment on above: Performed By: #### B EDG #### [facility] ([facility]) [address] [place] [address] VIR MCV (RBC) [Entitic vol] 89 fL Normal 80-100 [facility] Comment on above: Performed By: #### B EDG #### [facility] ([facility]) [address] [place] [address] VIR MONOCYTES ABSOLUTE COUNT (10*3/UL) BY AUTOMATED COUNT 0.3 10*3/uL Normal 0.0-0.9 [facility] Comment on above: Performed By: #### B EDG #### [facility] ([facility]) [address] [place] [address] VIR MONOCYTES RELATIVE PERCENT BY AUTOMATED COUNT 4.8 % Normal [facility] Comment on above: Performed By: #### B EDG #### [facility] ([facility]) [address] [place] [address] VIR NEUTROPHILS ABSOLUTE COUNT BY AUTOMATED COUNT 2.8 10*3/uL Normal 1.5-6.6 [facility] Comment on above: Performed By: #### B EDG #### [facility] ([facility]) [address] [place] [address] VIR NEUTROPHILS RELATIVE PERCENT BY AUTOMATED COUNT 52.8 % Normal [facility] Comment on above: Performed By: #### B EDG #### [facility] ([facility]) [address] [place] [address] VIR Platelet mean volume (Bld) [Entitic vol] 7.5 fL Normal 7-12 [facility] Comment on above: Performed By: #### B EDG #### [facility] ([facility]) [address] [place] [address] VIR Platelets (Bld) [#/Vol] 235 10*3/uL Normal 150-450 [facility] Comment on above: Performed By: #### B EDG #### [facility] ([facility]) [address] [place] [address] VIR RBC COUNT 3.67 X10E12/L Low 3.8-5.2 [facility] Comment on above: Performed By: #### B EDG #### [facility] ([facility]) [address] [place] [address] VIR WBC (Bld) [#/Vol] 5.3 10*3/uL Normal 4-11 [facility] Comment on above: Performed By: #### B EDG #### [facility] ([facility]) [address] [place] [address] VIR CBC auto differentialon 11-22 Basophils (Bld) [#/Vol] 0.1 10*3/uL 0.0 - 0.2 10*3/uL [facility] Basophils/100 WBC (Bld) 1.1 % [facility] Differential cell count method Nom (Bld) AUTOMATED DIFFERENTIAL [facility] Eosinophils (Bld) [#/Vol] 0.2 10*3/uL 0.0 - 0.4 10*3/uL [facility] Eosinophils/100 WBC (Bld) 3 % [facility] Erythrocyte distribution width (RBC) [Ratio] 13.5 % 11.5 - 15 % [facility] Hematocrit (Bld) [Volume fraction] 32.7 % Low 35 - 47 % [facility] Hemoglobin (Bld) [Mass/Vol] 11.2 g/dL Low 11.7 - 15.5 g/dL [facility] Interpretation and review of laboratory results Abnormal [facility] Lymphocytes (Bld) [#/Vol] 2 10*3/uL 1.0 - 3.5 10*3/uL [facility] Lymphocytes/100 WBC (Bld) 38.3 % [facility] MCH (RBC) [Entitic mass] 30.4 pg 27 - 34 pg [facility] MCHC (RBC) [Mass/Vol] 34.1 g/dL 32 - 3 6 g/dL [facility] MCV (RBC) [Entitic vol] 89 fL 80 - 100 fL [facility] Monocytes (Bld) [#/Vol] 0.3 10*3/uL 0.0 - 0.9 10*3/uL [facility] Monocytes/100 WBC (Bld) 4.8 % [facility] Neutrophils (Bld) [#/Vol] 2.8 10*3/uL 1.5 - 6.6 10*3/uL [facility] Neutrophils/100 WBC (Bld) 52.8 % [facility] Platelet mean volume (Bld) [Entitic vol] 7.5 fL 7 - 12 fL [facility] Platelets (Bld) [#/Vol] 235 10*3/uL [facility] RBC (Bld) [#/Vol] 3.67 10*6/uL Low [facility] WBC LM Ql (Sput) 5.3 [facility] Electrolyte panelon 12-05-19 25 Anion gap [Moles/Vol] 6 mmol/L 5 - 15 mmol/L [facility] Chloride [Moles/Vol] 110 mmol/L High 98 - 10 9 mmol/L [facility] CO2 [Moles/Vol] 20 mmol/L Low 22 - 32 mmol/L [facility] Interpretation and review of laboratory results Abnormal [facility] Potassium [Moles/Vol] 4.4 mmol/L 3.5 - 5.0 mmol/L [facility] Sodium [Moles/Vol] 136 mmol/L 134 - 146 mmol/L [facility] APTTon 12-03-2024 aPTT Coag (PPP) [Time] 25 s Low [facility] Interpretation and review of laboratory results Abnormal [facility] aPTT Coag (Bld) [Time] 25 s Low 26-37 [facility] Comment on above: Performed By: #### C MP #### [facility] ([facility]) [address] [place] [address] VIR BEDSIDE GLUCOSEon 12-03-2024 Glucose [Mass/Vol] 257 mg/dL High 65-[address] [place] [address] Comment on above: Performed By: #### B EDG #### [facility] ([facility]) [address] [place] [address] VIR Glucose [Mass/Vol] 238 mg/dL High [address] [place] [address] Comment on above: Performed By: #### B EDG #### [facility] ([facility]) [address] [place] [address] VIR Glucose [Mass/Vol] 114 mg/dL High [address] [place] [address] Comment on above: Performed By: #### B EDG #### [facility] ([facility]) [address] [place] [address] VIR Glucose [Mass/Vol] 237 mg/dL High [address] [place] [address] Comment on above: Performed By: #### C MP #### [facility] ([facility]) [address] [place] [address] VIR Glucose [Mass/Vol] 269 mg/dL High [address] [place] [address] Comment on above: Performed By: #### C MP #### [facility] ([facility]) [address] [place] [address] VIR Glucose [Mass/Vol] 281 mg/dL High 65-99 [facility] Comment on above: Performed By: #### C MP #### [facility] ([facility]) [address] [place] [address] VIR Glucose [Mass/Vol] 301 mg/dL High [address] [place] [address] Comment on above: Performed By: #### C MP #### [facility] ([facility]) [address] [place] [address] VIR Glucose [Mass/Vol] 287 mg/dL High [address] [place] [address] Comment on above: Performed By: #### C MP #### [facility] ([facility]) [address] [place] [address] VIR Glucose [Mass/Vol] 344 mg/dL High [address] [place] [address] Comment on above: Performed By: #### C MP #### [facility] ([facility]) [address] [place] [address] VIR Glucose [Mass/Vol] 318 mg/dL High [address] [place] [address] Comment on above: Performed By: #### B EDG #### [facility] ([facility]) [address] [place] [address] VIR Glucose [Mass/Vol] 409 mg/dL Critically high [address] [place] [address] Comment on above: Performed By: #### B EDG #### [facility] ([facility]) [address] [place] [address] VIR BEDSIDE GLUCOSE BEDG >^500 Critically high [address] [place] [address] Comment on above: Performed By: #### B EDG #### [facility] ([facility]) [address] [place] [address] VIR BEDSIDE GLUCOSE BEDG >^500 Critically high [address] [place] [address] Comment on above: Performed By: #### B EDG #### [facility] ([facility]) [address] [place] [address] VIR Bedside Glucose *Place/Obtai n serum glucose if >500 per glucometer.on 12-03-2024 Glucose [Mass/Vol] 238 mg/dL High 65 - 99 mg/dL [facility] Interpretation and review of laboratory results Abnormal [facility] Glucose [Mass/Vol] 114 mg/dL High 65 - 99 mg/dL [facility] Interpretation and review of laboratory results Abnormal [facility] Glucose [Mass/Vol] 269 mg/dL High 65 - 99 mg/dL [facility] Glucose [Mass/Vol] 237 mg/dL High 65 - 99 mg/dL [facility] Glucose [Mass/Vol] 281 mg/dL High 65 - 99 mg/dL [facility] Interpretation and review of laboratory results Abnormal [facility] Glucose [Mass/Vol] 301 mg/dL High 65 - 99 mg/dL [facility] Interpretation and review of laboratory results Abnormal [facility] Glucose [Mass/Vol] 287 mg/dL High 65 - 99 mg/dL [facility] Interpretation and review of laboratory results Abnormal [facility] Glucose [Mass/Vol] 344 mg/dL High 65 - 99 mg/dL [facility] Interpretation and review of laboratory results Abnormal [facility] Glucose [Mass/Vol] 318 mg/dL High 65 - 99 mg/dL [facility] Interpretation and review of laboratory results Abnormal [facility] Glucose [Mass/Vol] 409 mg/dL Critically high 65 - 9 9 mg/dL [facility] Interpretation and review of laboratory results Abnormal [facility] Glucose [Mass/Vol] mg/dL Critically high 65 - 9 9 mg/dL [facility] Interpretation and review of laboratory results Abnormal [facility] Glucose [Mass/Vol] mg/dL Critically high 65 - 9 9 mg/dL [facility] Interpretation and review of laboratory results Abnormal [facility] CBC WITH AUTO DIFFERENTIALon 12-03-2024 BASOPHILS ABSOLUTE COUNT (10*3/UL) BY AUTOMATED COUNT 0.1 10*3/uL Normal 0.0-0.2 [facility] Comment on above: Performed By: #### C BCA #### [facility] ([facility]) [address] [place] [address] VIR BASOPHILS RELATIVE PERCENT BY AUTOMATED COUNT 1.5 % Normal [facility] Comment on above: Performed By: #### C BCA #### [facility] ([facility]) [address] [place] [address] VIR CELLAVISION DIFFERENTIAL TYPE AUTOMATED DIFFERENTIAL Normal [facility] Comment on above: Performed By: #### C BCA #### [facility] ([facility]) [address] [place] [address] VIR Eosinophils (Bld) [#/Vol] 0.2 10*3/uL Normal 0.0-0.4 [facility] Comment on above: Performed By: #### C BCA #### [facility] ([facility]) [address] [place] [address] VIR EOSINOPHILS RELATIVE PERCENT BY AUTOMATED COUNT 2.3 % Normal [facility] Comment on above: Performed By: #### C BCA #### [facility] ([facility]) [address] [place] [address] VIR Erythrocyte distribution width (RBC) [Ratio] 13.5 % Normal 11.5-15 [facility] Comment on above: Performed By: #### C BCA #### [facility] ([facility]) [address] [place] [address] VIR Hematocrit (Bld) [Volume fraction] 34.1 % Low 35-47 [facility] Comment on above: Performed By: #### C BCA #### [facility] ([facility]) [address] [place] [address] VIR Hemoglobin (Bld) [Mass/Vol] 11.7 g/dL Normal 11.7-15.5 [facility] Comment on above: Performed By: #### C BCA #### [facility] ([facility]) [address] [place] [address] VIR LYMPHOCYTES ABSOLUTE COUNT (10*3/UL) BY AUTOMATED COUNT 2.6 10*3/uL Normal 1.0-3.5 [facility] Comment on above: Performed By: #### C BCA #### [facility] ([facility]) [address] [place] [address] VIR LYMPHOCYTES RELATIVE PERCENT BY AUTOMATED COUNT 33.5 % Normal [facility] Comment on above: Performed By: #### C BCA #### [facility] ([facility]) [address] [place] [address] VIR MCH (RBC) [Entitic mass] 30.7 pg Normal 27-34 [facility] Comment on above: Performed By: #### C BCA #### [facility] ([facility]) [address] [place] [address] VIR MCHC (RBC) [Mass/Vol] 34.3 g/dL Normal 32-36 [facility] Comment on above: Performed By: #### C BCA #### [facility] ([facility]) [address] [place] [address] VIR MCV (RBC) [Entitic vol] 89 fL Normal 80-100 [facility] Comment on above: Performed By: #### C BCA #### [facility] ([facility]) [address] [place] [address] VIR MONOCYTES ABSOLUTE COUNT (10*3/UL) BY AUTOMATED COUNT 0.5 10*3/uL Normal 0.0-0.9 [facility] Comment on above: Performed By: #### C BCA #### [facility] ([facility]) [address] [place] [address] VIR MONOCYTES RELATIVE PERCENT BY AUTOMATED COUNT 6.3 % Normal [facility] Comment on above: Performed By: #### C BCA #### [facility] [facility] ([facility]) [address] [place] [address] VIR NEUTROPHILS ABSOLUTE COUNT BY AUTOMATED COUNT 4.4 10*3/uL Normal 1.5-6.6 [facility] Comment on above: Performed By: #### C BCA #### [facility] ([facility]) [address] [place] [address] VIR NEUTROPHILS RELATIVE PERCENT BY AUTOMATED COUNT 56.4 % Normal [facility] Comment on above: Performed By: #### C BCA #### [facility] ([facility]) [address] [place] [address] VIR Platelet mean volume (Bld) [Entitic vol] 7.5 fL Normal 7-12 [facility] Comment on above: Performed By: #### C BCA #### [facility] ([facility]) [address] [place] [address] VIR Platelets (Bld) [#/Vol] 244 10*3/uL Normal 150-450 [facility] Comment on above: Performed By: #### C BCA #### [facility] ([facility]) [address] [place] [address] VIR RBC COUNT 3.81 X10E12/L Normal 3.8-5.2 [facility] Comment on above: Performed By: #### C BCA #### [facility] ([facility]) [address] [place] [address] VIR WBC (Bld) [#/Vol] 7.7 10*3/uL Normal 4-11 [facility] Comment on above: Performed By: #### C BCA #### [facility] ([facility]) [address] [place] [address] VIR BASOPHILS ABSOLUTE COUNT (10*3/UL) BY AUTOMATED COUNT 0.1 10*3/uL Normal 0.0-0.2 [facility] Comment on above: Performed By: #### C BCA #### [facility] ([facility]) [address] [place] [address] VIR BASOPHILS RELATIVE PERCENT BY AUTOMATED COUNT 1.0 % Normal [facility] Comment on above: Performed By: #### C BCA #### [facility] ([facility]) [address] [place] [address] VIR CELLAVISION DIFFERENTIAL TYPE AUTOMATED DIFFERENTIAL Normal [facility] Comment on above: Performed By: #### C BCA #### [facility] ([facility]) [address] [place] [address] VIR Eosinophils (Bld) [#/Vol] 0.1 10*3/uL Normal 0.0-0.4 [facility] Comment on above: Performed By: #### C BCA #### [facility] ([facility]) [address] [place] [address] VIR EOSINOPHILS RELATIVE PERCENT BY AUTOMATED COUNT 2.1 % Normal [facility] Comment on above: Performed By: #### C BCA #### [facility] ([facility]) [address] [place] [address] VIR Erythrocyte distribution width (RBC) [Ratio] 13.5 % Normal 11.5-15 [facility] Comment on above: Performed By: #### C BCA #### [facility] ([facility]) [address] [place] [address] VIR Hematocrit (Bld) [Volume fraction] 38.7 % Normal 35-47 [facility] Comment on above: Performed By: #### C BCA #### [facility] ([facility]) [address] [place] [address] VIR Hemoglobin (Bld) [Mass/Vol] 13.2 g/dL Normal 11.7-15.5 [facility] Comment on above: Performed By: #### C BCA #### [facility] ([facility]) [address] [place] [address] VIR LYMPHOCYTES ABSOLUTE COUNT (10*3/UL) BY AUTOMATED COUNT 1.7 10*3/uL Normal 1.0-3.5 [facility] Comment on above: Performed By: #### C BCA #### [facility] ([facility]) [address] [place] [address] VIR LYMPHOCYTES RELATIVE PERCENT BY AUTOMATED COUNT 24.3 % Normal [facility] Comment on above: Performed By: #### C BCA #### [facility] ([facility]) [address] [place] [address] VIR MCH (RBC) [Entitic mass] 31.0 pg Normal 27-34 [facility] Comment on above: Performed By: #### C BCA #### [facility] ([facility]) [address] [place] [address] VIR MCHC (RBC) [Mass/Vol] 34.0 g/dL Normal 32-36 [facility] Comment on above: Performed By: #### C BCA #### [facility] ([facility]) [address] [place] [address] VIR MCV (RBC) [Entitic vol] 91 fL Normal 80-100 [facility] Comment on above: Performed By: #### C BCA #### [facility] ([facility]) [address] [place] [address] VIR MONOCYTES ABSOLUTE COUNT (10*3/UL) BY AUTOMATED COUNT 0.4 10*3/uL Normal 0.0-0.9 [facility] Comment on above: Performed By: #### C BCA #### [facility] ([facility]) [address] [place] [address] VIR MONOCYTES RELATIVE PERCENT BY AUTOMATED COUNT 6.1 % Normal [facility] Comment on above: Performed By: #### C BCA #### [facility] ([facility]) [address] [place] [address] VIR NEUTROPHILS ABSOLUTE COUNT BY AUTOMATED COUNT 4.7 10*3/uL Normal 1.5-6.6 [facility] Comment on above: Performed By: #### C BCA #### [facility] ([facility]) [address] [place] [address] VIR NEUTROPHILS RELATIVE PERCENT BY AUTOMATED COUNT 66.5 % Normal [facility] Comment on above: Performed By: #### C BCA #### [facility] ([facility]) [address] [place] [address] VIR Platelet mean volume (Bld) [Entitic vol] 8.2 fL Normal 7-12 [facility] Comment on above: Performed By: #### C BCA #### [facility] ([facility]) [address] [facility] [address] [place] [address] VIR Platelets (Bld) [#/Vol] 234 10*3/uL Normal 150-450 [facility] Comment on above: Performed By: #### C BCA #### [facility] ([facility]) [address] [facility] [address] [place] [address] VIR RBC COUNT 4.24 X10E12/L Normal 3.8-5.2 [facility] Comment on above: Performed By: #### C BCA #### [facility] ([facility]) [address] [facility] [address] [place] [address] VIR WBC (Bld) [#/Vol] 7.1 10*3/uL Normal 4-11 [facility] Comment on above: Performed By: #### C BCA #### [facility] ([facility]) [address] [facility] [address] [place] [address] VIR CBC auto differentialon 11-22 Basophils (Bld) [#/Vol] 0.1 10*3/uL 0.0 - 0.2 10*3/uL [facility] Basophils/100 WBC (Bld) 1.5 % [facility] Differential cell count method Nom (Bld) AUTOMATED DIFFERENTIAL [facility] Eosinophils (Bld) [#/Vol] 0.2 10*3/uL 0.0 - 0.4 10*3/uL [facility] Eosinophils/100 WBC (Bld) 2.3 % [facility] Erythrocyte distribution width (RBC) [Ratio] 13.5 % 11.5 - 15 % [facility] Hematocrit (Bld) [Volume fraction] 34.1 % Low 35 - 47 % [facility] Hemoglobin (Bld) [Mass/Vol] 11.7 g/dL 11.7 - 15.5 g/dL [facility] Interpretation and review of laboratory results Abnormal [facility] Lymphocytes (Bld) [#/Vol] 2.6 10*3/uL 1.0 - 3.5 10*3/uL [facility] Lymphocytes/100 WBC (Bld) 33.5 % [facility] MCH (RBC) [Entitic mass] 30.7 pg 27 - 34 pg [facility] MCHC (RBC) [Mass/Vol] 34.3 g/dL 32 - 3 6 g/dL [facility] MCV (RBC) [Entitic vol] 89 fL 80 - 100 fL [facility] Monocytes (Bld) [#/Vol] 0.5 10*3/uL 0.0 - 0.9 10*3/uL [facility] Monocytes/100 WBC (Bld) 6.3 % [facility] Neutrophils (Bld) [#/Vol] 4.4 10*3/uL 1.5 - 6.6 10*3/uL [facility] Neutrophils/100 WBC (Bld) 56.4 % [facility] Platelet mean volume (Bld) [Entitic vol] 7.5 fL 7 - 12 fL [facility] Platelets (Bld) [#/Vol] 244 10*3/uL [facility] RBC (Bld) [#/Vol] 3.81 10*6/uL [facility] WBC LM Ql (Sput) 7.7 [facility] Basophils (Bld) [#/Vol] 0.1 10*3/uL 0.0 - 0.2 10*3/uL [facility] Basophils/100 WBC (Bld) 1 % [facility] Differential cell count method Nom (Bld) AUTOMATED DIFFERENTIAL [facility] Eosinophils (Bld) [#/Vol] 0.1 10*3/uL 0.0 - 0.4 10*3/uL [facility] Eosinophils/100 WBC (Bld) 2.1 % [facility] Erythrocyte distribution width (RBC) [Ratio] 13.5 % 11.5 - 15 % [facility] Hematocrit (Bld) [Volume fraction] 38.7 % 35 - 47 % [facility] Hemoglobin (Bld) [Mass/Vol] 13.2 g/dL 11.7 - 15.5 g/dL [facility] Lymphocytes (Bld) [#/Vol] 1.7 10*3/uL 1.0 - 3.5 10*3/uL [facility] Lymphocytes/100 WBC (Bld) 24.3 % [facility] MCH (RBC) [Entitic mass] 31 pg 27 - 34 pg [facility] MCHC (RBC) [Mass/Vol] 34 g/dL 32 - 3 6 g/dL [facility] MCV (RBC) [Entitic vol] 91 fL 80 - 100 fL [facility] Monocytes (Bld) [#/Vol] 0.4 10*3/uL 0.0 - 0.9 10*3/uL [facility] Monocytes/100 WBC (Bld) 6.1 % [facility] Neutrophils (Bld) [#/Vol] 4.7 10*3/uL 1.5 - 6.6 10*3/uL [facility] Neutrophils/100 WBC (Bld) 66.5 % [facility] Platelet mean volume (Bld) [Entitic vol] 8.2 fL 7 - 12 fL [facility] Platelets (Bld) [#/Vol] 234 10*3/uL [facility] RBC (Bld) [#/Vol] 4.24 10*6/uL [facility] WBC LM Ql (Sput) 7.1 [facility] COMPREHENSIVE METABOLIC PANE [place] 12-03-2024 Albumin [Mass/Vol] 3.4 g/dL Normal 3.2-5.3 [facility] Comment on above: Performed By: #### C MP #### [facility] ([facility]) [address] [place] [address] VIR ALP [Catalytic activity/Vol] 104 U/L Normal 39-130 [facility] Comment on above: Performed By: #### C MP #### [facility] ([facility]) [address] [place] [address] VIR ALT [Catalytic activity/Vol] 10 U/L Normal <=31 [facility] Comment on above: Performed By: #### C MP #### [facility] ([facility]) [address] [place] [address] VIR Anion gap [Moles/Vol] 11 mmol/L Normal 5-15 [facility] Comment on above: Performed By: #### C MP #### [facility] ([facility]) [address] [place] [address] VIR AST [Catalytic activity/Vol] 11 U/L Normal <=41 [facility] Comment on above: Performed By: #### C MP #### [facility] ([facility]) [address] [place] [address] VIR Bilirubin [Mass/Vol] 0.4 mg/dL Normal 0.3-1.2 [facility] Comment on above: Performed By: #### C MP #### [facility] ([facility]) [address] [place] [address] VIR Calcium [Mass/Vol] 8.1 mg/dL Low 8.5-10.5 [facility] Comment on above: Performed By: #### C MP #### [facility] ([facility]) [address] [place] [address] VIR Chloride [Moles/Vol] 101 mmol/L Normal 98-109 [facility] Comment on above: Performed By: #### C MP #### [facility] ([facility]) [address] [place] [address] VIR CO2 [Moles/Vol] 21 mmol/L Low 22-32 [facility] Comment on above: Performed By: #### C MP #### [facility] ([facility]) [address] [place] [address] VIR Creatinine [Mass/Vol] 1.40 mg/dL High 0.40-1.00 [facility] Comment on above: Result Comment: METH OD TRACEABLE TO IDMS STANDARD Performed By: #### C MP #### [facility] ([facility]) [address] [place] [address] VIR GFR/1.73 sq M.predicted among non-blacks MDRD (S/P/Bld) [Vol rate/Area] 47 mL/min/{1.73_m2} Low >=60 [facility] Comment on above: Result Comment: Repo rted eGFR is based on the CKD-EPI 2020 equation that does not use a race coefficient. Performed By: #### C MP #### [facility] ([facility]) [address] [place] [address] VIR Glucose [Mass/Vol] 640 mg/dL Critically high 65-99 [facility] Comment on above: Performed By: #### C MP #### [facility] ([facility]) [address] [place] [address] VIR Potassium [Moles/Vol] 4.3 mmol/L Normal 3.5-5.0 [facility] Comment on above: Performed By: #### C MP #### [facility] ([facility]) [address] [place] [address] VIR Protein [Mass/Vol] 6.0 g/dL Normal 6.0-8.0 [facility] Comment on above: Performed By: #### C MP #### [facility] ([facility]) [address] [place] [address] VIR Sodium [Moles/Vol] 133 mmol/L Low 134-146 [facility] Comment on above: Performed By: #### C MP #### [facility] ([facility]) [address] [place] [address] VIR Urea nitrogen [Mass/Vol] 21 mg/dL Normal 5-23 [facility] Comment on above: Performed By: #### C MP #### [facility] ([facility]) [address] [place] [address] VIR Comprehensive metabolic pane lOrdered By: Etelvina Richards on 12-03-2024 Albumin [Mass/Vol] 3.4 g/dL 3.2 - 5.3 g/dL [facility] ALP [Catalytic activity/Vol] 104 U/L 39 - 130 U/L [facility] ALT No additional P-5'-P [Catalytic activity/Vol] 10 U/L NINF - 31 U/L [facility] Anion gap [Moles/Vol] 11 mmol/L 5 - 15 mmol/L [facility] AST [Catalytic activity/Vol] 11 U/L NINF - 41 U/L [facility] Bilirubin [Mass/Vol] 0.4 mg/dL 0.3 - 1 .2 mg/dL [facility] Calcium [Mass/Vol] 8.1 mg/dL Low 8.5 - 10. 5 mg/dL [facility] Chloride [Moles/Vol] 101 mmol/L 98 - 10 9 mmol/L [facility] CO2 [Moles/Vol] 21 mmol/L Low 22 - 32 mmol/L [facility] Creatinine [Mass/Vol] 1.4 mg/dL High 0.40 - 1.00 mg/dL [facility] Comment on above: METHOD TRACEABLE TO IDMS STANDARD EGFR Non-Race Dependent 47 Low - PINF [facility] Comment on above: Reported eGFR is bas ed on the CKD-EPI 2020 equation that does not use a race coefficient. Glucose [Mass/Vol] 640 mg/dL Critically high 65 - 9 9 mg/dL [facility] Interpretation and review of laboratory results Abnormal [facility] Potassium [Moles/Vol] 4.3 mmol/L 3.5 - 5.0 mmol/L [facility] Protein [Mass/Vol] 6 g/dL 6.0 - 8.0 g/dL [facility] Sodium [Moles/Vol] 133 mmol/L Low 134 - 146 mmol/L [facility] Urea nitrogen [Mass/Vol] 21 mg/dL 5 - 23 mg/dL [facility] ELECTROLYTE PANELon 12-04-19 25 Anion gap [Moles/Vol] 6 mmol/L Normal 5-15 [facility] Comment on above: Performed By: #### B EDG #### [facility] ([facility]) [address] [place] [address] VIR Chloride [Moles/Vol] 110 mmol/L High 98-109 [facility] Comment on above: Performed By: #### B EDG #### [facility] ([facility]) [address] [place] [address] VIR CO2 [Moles/Vol] 20 mmol/L Low 22-32 [facility] Comment on above: Performed By: #### B EDG #### [facility] ([facility]) [address] [place] [address] VIR Potassium [Moles/Vol] 4.4 mmol/L Normal 3.5-5.0 [facility] Comment on above: Performed By: #### B EDG #### [facility] ([facility]) [address] [place] [address] VIR Sodium [Moles/Vol] 136 mmol/L Normal 134-146 [facility] Comment on above: Performed By: #### B EDG #### [facility] ([facility]) [address] [place] [address] VIR ELECTROLYTE PANEL ELEC ELECTROLYTE KENDRICK EL Cancelled Normal [facility] Comment on above: Order Comment: See 2 [id number] Anion gap [Moles/Vol] 7 mmol/L Normal 5-15 [facility] Comment on above: Performed By: #### B EDG #### [facility] ([facility]) [address] [place] [address] VIR Chloride [Moles/Vol] 109 mmol/L Normal 98-109 [facility] Comment on above: Performed By: #### B EDG #### [facility] ([facility]) [address] [place] [address] VIR CO2 [Moles/Vol] 21 mmol/L Low 22-32 [facility] Comment on above: Performed By: #### B EDG #### [facility] ([facility]) [address] [place] [address] VIR Potassium [Moles/Vol] 4.4 mmol/L Normal 3.5-5.0 [facility] Comment on above: Performed By: #### B EDG #### [facility] ([facility]) [address] [place] [address] VIR Sodium [Moles/Vol] 137 mmol/L Normal 134-146 [facility] Comment on above: Performed By: #### B EDG #### [facility] ([facility]) [address] [place] [address] VIR Anion gap [Moles/Vol] 8 mmol/L Normal 5-15 [facility] Comment on above: Performed By: #### C MP #### [facility] ([facility]) [address] [place] [address] VIR Chloride [Moles/Vol] 107 mmol/L Normal 98-109 [facility] Comment on above: Performed By: #### C MP #### [facility] ([facility]) [address] [place] [address] VIR CO2 [Moles/Vol] 23 mmol/L Normal 22-32 [facility] Comment on above: Performed By: #### C MP #### [facility] ([facility]) [address] [place] [address] VIR Potassium [Moles/Vol] 4.2 mmol/L Normal 3.5-5.0 [facility] Comment on above: Performed By: #### C MP #### [facility] ([facility]) [address] [place] [address] VIR Sodium [Moles/Vol] 138 mmol/L Normal 134-146 [facility] Comment on above: Performed By: #### C MP #### [facility] ([facility]) [address] [place] [address] VIR Anion gap [Moles/Vol] 7 mmol/L Normal 5-15 [facility] Comment on above: Performed By: #### C MP #### [facility] ([facility]) [address] [place] [address] VIR Chloride [Moles/Vol] 106 mmol/L Normal 98-109 [facility] Comment on above: Performed By: #### C MP #### [facility] ([facility]) [address] [place] [address] VIR CO2 [Moles/Vol] 24 mmol/L Normal 22-32 [facility] Comment on above: Performed By: #### C MP #### [facility] ([facility]) [address] [place] [address] VIR Potassium [Moles/Vol] 4.2 mmol/L Normal 3.5-5.0 [facility] Comment on above: Performed By: #### C MP #### [facility] ([facility]) [address] [place] [address] VIR Sodium [Moles/Vol] 137 mmol/L Normal 134-146 [facility] Comment on above: Performed By: #### C MP #### [facility] ([facility]) [address] [place] [address] VIR Anion gap [Moles/Vol] 11 mmol/L Normal 5-15 [facility] Comment on above: Performed By: #### C MP #### [facility] ([facility]) [address] [place] [address] VIR Chloride [Moles/Vol] 105 mmol/L Normal 98-109 [facility] Comment on above: Performed By: #### C MP #### [facility] ([facility]) [address] [place] [address] VIR CO2 [Moles/Vol] 21 mmol/L Low 22-32 [facility] Comment on above: Performed By: #### C MP #### [facility] ([facility]) [address] [place] [address] VIR Potassium [Moles/Vol] 3.8 mmol/L Normal 3.5-5.0 [facility] Comment on above: Performed By: #### C MP #### [facility] ([facility]) [address] [place] [address] VIR Sodium [Moles/Vol] 137 mmol/L Normal 134-146 [facility] Comment on above: Performed By: #### C MP #### [facility] ([facility]) [address] [place] [address] VIR ELECTROLYTE PANEL ELEC ELECTROLYTE KENDRICK EL Cancelled Normal [facility] Electrolyte panelon 12-04-19 25 Anion gap [Moles/Vol] 7 mmol/L 5 - 15 mmol/L [facility] Chloride [Moles/Vol] 109 mmol/L 98 - 10 9 mmol/L [facility] CO2 [Moles/Vol] 21 mmol/L Low 22 - 32 mmol/L [facility] Interpretation and review of laboratory results Abnormal [facility] Potassium [Moles/Vol] 4.4 mmol/L 3.5 - 5.0 mmol/L [facility] Sodium [Moles/Vol] 137 mmol/L 134 - 146 mmol/L [facility] Anion gap [Moles/Vol] 8 mmol/L 5 - 15 mmol/L [facility] Chloride [Moles/Vol] 107 mmol/L 98 - 10 9 mmol/L [facility] CO2 [Moles/Vol] 23 mmol/L 22 - 32 mmol/L [facility] Interpretation and review of laboratory results Normal [facility] Potassium [Moles/Vol] 4.2 mmol/L 3.5 - 5.0 mmol/L [facility] Sodium [Moles/Vol] 138 mmol/L 134 - 146 mmol/L [facility] Anion gap [Moles/Vol] 7 mmol/L 5 - 15 mmol/L [facility] Chloride [Moles/Vol] 106 mmol/L 98 - 10 9 mmol/L [facility] CO2 [Moles/Vol] 24 mmol/L 22 - 32 mmol/L [facility] Interpretation and review of laboratory results Normal [facility] Potassium [Moles/Vol] 4.2 mmol/L 3.5 - 5.0 mmol/L [facility] Sodium [Moles/Vol] 137 mmol/L 134 - 146 mmol/L [facility] Anion gap [Moles/Vol] 11 mmol/L 5 - 15 mmol/L [facility] Chloride [Moles/Vol] 105 mmol/L 98 - 10 9 mmol/L [facility] CO2 [Moles/Vol] 21 mmol/L Low 22 - 32 mmol/L [facility] Interpretation and review of laboratory results Abnormal [facility] Potassium [Moles/Vol] 3.8 mmol/L 3.5 - 5.0 mmol/L [facility] Sodium [Moles/Vol] 137 mmol/L 134 - 146 mmol/L [facility] HEMOGLOBIN A1Con 12-03-2024 Glucose [Mass/Vol] 344 mg/dL Normal [facility] Comment on above: Performed By: #### H A1C #### [facility] ([facility]) [address] [place] [address] VIR HbA1c (Bld) [Mass fraction] 13.6 % High 4.4-5.6 [facility] Comment on above: Result Comment: ADA Guidelines Result HgbA1c Normal : less than 5.7 % Prediabetes : 5.7 % to 6.4 % Diabetes : > 6.4 % Use with caution in patients with abnormal hemoglobin variants as the half-life of red blood cells and in vivo glycation rates are affected. Performed By: #### H A1C #### [facility] ([facility]) [address] [place] [address] VIR Hemoglobin A1con 12-03-2024 Average glucose Estimated from glycated hemoglobin (Bld) [Mass/Vol] 344 mg/dL [facility] HbA1c (Bld) [Mass fraction] 13.6 % High 4.4 - 5.6 % [facility] Comment on above: ADA Guidelines Result HgbA1c Normal : less than 5.7 % Prediabetes : 5.7 % to 6.4 % Diabetes : > 6.4 % Use with caution in patients with abnormal hemoglobin variants as the half-life of red blood cells and in vivo glycation rates are affected. Interpretation and review of laboratory results Abnormal [facility] No Panel Informationon 12-03 Interpretation and review of laboratory results Abnormal [facility] TSH WITH REFLEXon 12-03-2024 TSH 3.02 uIU/mL Normal 0.49-4.67 [facility] Comment on above: Performed By: #### T SHR #### [facility] ([facility]) [address] [place] [address] VIR TSH with Reflexon 12-03-2024 Interpretation and review of laboratory results Normal [facility] TSH Qn 3.02 m[IU]/L [facility] 30on 10-05-2024 30 The patient is Moder ately Stable - Low risk of patient condition declining or worsening The patient's goals for the shift include comfort The clinical goals for the shift include safety Normal [facility] BASIC METABOLIC PANELon 09-22 Anion gap [Moles/Vol] 9 mmol/L Normal 7-20 [facility] Comment on above: Performed By: #### L [id number] #### [facility] ([facility]) [address] [place] [address] Calcium [Mass/Vol] 8.4 mg/dL Low 8.6-10.3 [facility] Comment on above: Performed By: #### L [id number] #### [facility] ([facility]) [address] [place] [address] Chloride [Moles/Vol] 109 mmol/L High 98-107 [facility] Comment on above: Performed By: #### L [id number] #### [facility] ([facility]) [address] [place] [address] CO2 [Moles/Vol] 28 mmol/L Normal 21-31 [facility] Comment on above: Performed By: #### L [id number] #### [facility] ([facility]) [address] [place] [address] Creatinine [Mass/Vol] 1.26 mg/dL High 0.60-1.20 [facility] Comment on above: Performed By: #### L [id number] #### [facility] ([facility]) [address] [address] GLOMERULAR FILTRATION RATE ML/MIN/1.73 SQ M.PREDICTED 53.0 mL/min/1.73m*2 Low >60.0 [facility] Comment on above: Result Comment: The [facility]???s estimated glomerular filtration rate (eGFR) will no longer include consideration of race in its calculation. The National Kidney Foundation???s eGFR Task Force developed new recommendations for [...] disproportionately affect any one group of individuals. Performed By: #### L [id number] #### [facility] ([facility]) [address] [place] [address] Glucose [Mass/Vol] 108 mg/dL High 70-100 [facility] Comment on above: Performed By: #### L [id number] #### [facility] ([facility]) [address] [place] [address] Potassium [Moles/Vol] 4.1 mmol/L Normal 3.5-5.1 [facility] Comment on above: Performed By: #### L [id number] #### [facility] [address] [address] Sodium [Moles/Vol] 142 mmol/L Normal 136-145 [facility] Comment on above: Performed By: #### L [id number] #### [facility] ([facility]) [address] [place] [address] Urea nitrogen [Mass/Vol] 28 mg/dL High 7-25 [facility] Comment on above: Performed By: #### L [id number] #### [facility] ([facility]) [address] [place] [address] UREA NITROGEN/CREATININE (MASS RATIO) IN SER/PLAS 22.2 Normal [facility] Comment on above: Performed By: #### L [id number] #### [facility] ([facility]) [address] [place] [address] CBC WITH AUTO DIFFERENTIALon 10-05-2024 Basophils (Bld) [#/Vol] 0.06 10*3/uL Normal 0.00-0.20 [facility] Comment on above: Performed By: #### L [id number] ####[facility] ([facility])[address] [place] [address] Basophils/100 WBC (Bld) 1.1 % High 0.0-1.0 [facility] Comment on above: Performed By: #### L [id number] ####[facility] [place] [address] Eosinophils (Bld) [#/Vol] 0.19 10*3/uL Normal 0.00-0.50 [facility] Comment on above: Performed By: #### L [id number] ####[facility] [place] [address] Eosinophils/100 WBC (Bld) 3.5 % Normal 0.0-6.0 [facility] Comment on above: Performed By: #### L [id number] ####[facility] ([facility])[address] [place] [address] Erythrocyte distribution width (RBC) [Ratio] 13.5 % Normal 11.5-15.0 [facility] Comment on above: Performed By: #### L [id number] ####[facility] ([facility])[address] [place] [address] ERYTHROCYTE MEAN CORPUSCULAR HEMOGLOBIN CONCENTRATION (G/DL) BY AUTOMATED 32.4 g/dL Normal 32.0-35.0 [facility] Comment on above: Performed By: #### L [id number] ####[facility] ([facility])[address] [place] [address] Hematocrit (Bld) [Volume fraction] 31.5 % Low 36.0-45.0 [facility] Comment on above: Performed By: #### L [id number] ####[facility] [place], [place] [address] Hemoglobin (Bld) [Mass/Vol] 10.2 g/dL Low 12.0-15.0 [facility] Comment on above: Performed By: #### L [id number] ####[facility] ([facility])[address] [place], [place] [address] Immature granulocytes (Bld) [#/Vol] 0.02 10*3/uL Normal 0.00-0.20 [facility] Comment on above: Performed By: #### L [id number] ####[facility] ([facility])[address] [place], [place] [address] Immature granulocytes/100 WBC (Bld) 0.4 % Normal 0.0-1.0 [facility] Comment on above: Performed By: #### L [id number] ####[facility] ([facility])[address] [place], [place] [address] Lymphocytes (Bld) [#/Vol] 2.24 10*3/uL Normal 1.20-4.00 [facility] Comment on above: Performed By: #### L [id number] ####[facility] ([facility])[address] [place] [address] Lymphocytes/100 WBC (Bld) 41.0 % Normal 20.0-45.0 [facility] Comment on above: Performed By: #### L [id number] ####[facility] ([facility])[address] [place] [address] MCH (RBC) [Entitic mass] 30.4 pg Normal 27.0-33.0 [facility] Comment on above: Performed By: #### L [id number] ####[facility] [place] [address] MCV (RBC) [Entitic vol] 93.8 fL Normal 82.0-98.0 [facility] Comment on above: Performed By: #### L [id number] ####[facility] ([facility])[address] [place] [address] Monocytes (Bld) [#/Vol] 0.48 10*3/uL Normal 0.10-1.00 [facility] Comment on above: Performed By: #### L [id number] ####[facility] ([facility])[address] [place] [address] Monocytes/100 WBC (Bld) 8.8 % Normal 5.0-12.0 [facility] Comment on above: Performed By: #### L [id number] ####[facility] ([facility])[address] [place] [address] Neutrophils (Bld) [#/Vol] 2.48 10*3/uL Normal 1.60-7.60 [facility] Comment on above: Performed By: #### L [id number] ####[facility] ([facility])[address] [place] [address] Neutrophils/100 WBC (Bld) 45.2 % Normal 40.0-72.0 [facility] Comment on above: Performed By: #### L [id number] ####[facility] ([facility])[address] [place] [address] NRBC (PER 100 WBCS) BY AUTOMATED COUNT 0.0 % Normal 0 [facility] Comment on above: Performed By: #### L [id number] ####[facility] ([facility])[address] [place] [address] PLATELETS (10*3/UL) IN BLOOD AUTOMATED COUNT 271 10*3/uL Normal 150-400 [facility] Comment on above: Performed By: #### L [id number] ####[facility] ([facility])[address] [place] [address] RBC (Bld) [#/Vol] 3.36 10*6/uL Low 3.80-5.00 [facility] Comment on above: Performed By: #### L [id number] ####[facility] ([facility])[address] [place] [address] WBC (Bld) [#/Vol] 5.47 10*3/uL Normal 4.00-10.60 [facility] Comment on above: Performed By: #### L [id number] ####[facility] ([facility])[address] [place] [address] POCT GLUCOSE METER UNSOLICIT ED RESULTSon 10-05-2024 Glucose [Mass/Vol] 115 mg/dL High 70-105 [facility] Comment on above: Order Comment: Waive d Testing in the ED is performed under the ED CLIA certificate #[id number]. Result Comment: [email or web address] Performed By: #### L [id number] #### [facility] ([facility]) [address] [place] [address] Glucose [Mass/Vol] 123 mg/dL High 70-105 [facility] Comment on above: Order Comment: Waive d Testing in the ED is performed under the ED CLIA certificate #[id number]. Result Comment: [email or web address] Performed By: #### L [id number] ####[facility] ([facility])[address] [place] [address] BASIC METABOLIC PANELon 05- Anion gap [Moles/Vol] 10 mmol/L Normal 7-20 [facility] Comment on above: Performed By: #### L [id number] #### [facility] ([facility]) [address] [place] [address] Calcium [Mass/Vol] 8.2 mg/dL Low 8.6-10.3 [facility] Comment on above: Performed By: #### L [id number] #### [facility] ([facility]) [address] [place] [address] Chloride [Moles/Vol] 106 mmol/L Normal 98-107 [facility] Comment on above: Performed By: #### L [id number] #### [facility] ([facility]) [address] [place] [address] CO2 [Moles/Vol] 26 mmol/L Normal 21-31 [facility] Comment on above: Performed By: #### L [id number] #### [facility] ([facility]) [address] [place] [address] Creatinine [Mass/Vol] 1.75 mg/dL High 0.60-1.20 [facility] Comment on above: Performed By: #### L [id number] #### [facility] ([facility]) [address] [place] [address] GLOMERULAR FILTRATION RATE ML/MIN/1.73 SQ M.PREDICTED 35.7 mL/min/1.73m*2 Low >60.0 [facility] Comment on above: Result Comment: The [facility]???s estimated glomerular filtration rate (eGFR) will no longer include consideration of race in its calculation. The National Kidney Foundation???s eGFR Task Force developed new recommendations for [...] disproportionately affect any one group of individuals. Performed By: #### L [id number] #### [facility] ([facility]) [address] [place] [address] Glucose [Mass/Vol] 134 mg/dL High 70-100 [facility] Comment on above: Performed By: #### L [id number] #### [facility] ([facility]) [address] [place] [address] Potassium [Moles/Vol] 4.0 mmol/L Normal 3.5-5.1 [facility] Comment on above: Performed By: #### L [id number] #### [facility] ([facility]) [address] [place] [address] Sodium [Moles/Vol] 138 mmol/L Normal 136-145 [facility] Comment on above: Performed By: #### L [id number] #### [facility] ([facility]) [address] [place] [address] Urea nitrogen [Mass/Vol] 36 mg/dL High 7-25 [facility] Comment on above: Performed By: #### L [id number] #### [facility] ([facility]) [address] [place] [address] UREA NITROGEN/CREATININE (MASS RATIO) IN SER/PLAS 20.6 Normal [facility] Comment on above: Performed By: #### L [id number] #### [facility] ([facility]) [address] [place] [address] CALCIUM, IONIZEDon CALCIUM IONIZED (MMOL/L) IN BLOOD 1.23 mmol/L Normal 1.15-1.33 [facility] Comment on above: Performed By: #### L [id number] #### [facility] ([facility]) [address] [place] [address] CBC WITH AUTO DIFFERENTIALon 10-04-2024 Basophils (Bld) [#/Vol] 0.04 10*3/uL Normal 0.00-0.20 [facility] Comment on above: Performed By: #### L [id number] #### [facility] ([facility]) [address] [place] [address] Basophils/100 WBC (Bld) 0.6 % Normal 0.0-1.0 [facility] Comment on above: Performed By: #### L [id number] #### [facility] ([facility]) [address] [place] [address] Eosinophils (Bld) [#/Vol] 0.17 10*3/uL Normal 0.00-0.50 [facility] Comment on above: Performed By: #### L [id number] #### [facility] ([facility]) [address] [place] [address] Eosinophils/100 WBC (Bld) 2.7 % Normal 0.0-6.0 [facility] Comment on above: Performed By: #### L [id number] #### [facility] ([facility]) [address] [place] [address] Erythrocyte distribution width (RBC) [Ratio] 13.4 % Normal 11.5-15.0 [facility] Comment on above: Performed By: #### L [id number] #### [facility] ([facility]) [address] [place] [address] ERYTHROCYTE MEAN CORPUSCULAR HEMOGLOBIN CONCENTRATION (G/DL) BY AUTOMATED 31.9 g/dL Low 32.0-35.0 [facility] Comment on above: Performed By: #### L [id number] #### [facility] ([facility]) [address] [place] [address] Hematocrit (Bld) [Volume fraction] 31.3 % Low 36.0-45.0 [facility] Comment on above: Performed By: #### L [id number] #### [facility] ([facility]) [address] [address] Hemoglobin (Bld) [Mass/Vol] 10.0 g/dL Low 12.0-15.0 [facility] Comment on above: Performed By: #### L [id number] #### [facility] ([facility]) [address] [place] [address] Immature granulocytes (Bld) [#/Vol] 0.02 10*3/uL Normal 0.00-0.20 [facility] Comment on above: Performed By: #### L [id number] #### [facility] [address] [place] [address] Immature granulocytes/100 WBC (Bld) 0.3 % Normal 0.0-1.0 [facility] Comment on above: Performed By: #### L [id number] #### [facility] [address] [place] [address] Lymphocytes (Bld) [#/Vol] 1.83 10*3/uL Normal 1.20-4.00 [facility] Comment on above: Performed By: #### L [id number] #### [facility] [address] [place] [address] Lymphocytes/100 WBC (Bld) 29.5 % Normal 20.0-45.0 [facility] Comment on above: Performed By: #### L [id number] #### [facility] [address] [place] [address] MCH (RBC) [Entitic mass] 30.2 pg Normal 27.0-33.0 [facility] Comment on above: Performed By: #### L [id number] #### [facility] ([facility]) [address] [place] [address] MCV (RBC) [Entitic vol] 94.6 fL Normal 82.0-98.0 [facility] Comment on above: Performed By: #### L [id number] #### [facility] ([facility]) [address] [place] [address] Monocytes (Bld) [#/Vol] 0.49 10*3/uL Normal 0.10-1.00 [facility] Comment on above: Performed By: #### L [id number] #### [facility] ([facility]) [address] [place] [address] Monocytes/100 WBC (Bld) 7.9 % Normal 5.0-12.0 [facility] Comment on above: Performed By: #### L [id number] #### [facility] ([facility]) [address] [place] [address] Neutrophils (Bld) [#/Vol] 3.66 10*3/uL Normal 1.60-7.60 [facility] Comment on above: Performed By: #### L [id number] #### [facility] ([facility]) [address] [place] [address] Neutrophils/100 WBC (Bld) 59.0 % Normal 40.0-72.0 [facility] Comment on above: Performed By: #### L [id number] #### [facility] ([facility]) [address] [place] [address] NRBC (PER 100 WBCS) BY AUTOMATED COUNT 0.0 % Normal 0 [facility] Comment on above: Performed By: #### L [id number] #### [facility] ([facility]) [address] [place] [address] PLATELETS (10*3/UL) IN BLOOD AUTOMATED COUNT 242 10*3/uL Normal 150-400 [facility] Comment on above: Performed By: #### L [id number] #### [facility] ([facility]) [address] [place] [address] RBC (Bld) [#/Vol] 3.31 10*6/uL Low 3.80-5.00 [facility] Comment on above: Performed By: #### L [id number] #### [facility] ([facility]) [address] [place] [address] WBC (Bld) [#/Vol] 6.21 10*3/uL Normal 4.00-10.60 [facility] Comment on above: Performed By: #### L [id number] #### [facility] ([facility]) [address] [place] [address] POCT GLUCOSE METER UNSOLICIT ED RESULTSon 10-04-2024 Glucose [Mass/Vol] 237 mg/dL High 70-105 [facility] Comment on above: Order Comment: Waive d Testing in the ED is performed under the ED CLIA certificate #[id number]. Result Comment: [email or web address] Critical Value Noted Performed By: #### L [id number] ####[facility] ([facility])[address] [facility] [place] [address] Glucose [Mass/Vol] 213 mg/dL High 70-105 [facility] Comment on above: Order Comment: Waive d Testing in the ED is performed under the ED CLIA certificate #[id number]. Result Comment: [email or web address] Performed By: #### L [id number] #### [facility] ([facility]) [address] [place] [address] Glucose [Mass/Vol] 211 mg/dL High 70-105 [facility] Comment on above: Order Comment: Waive d Testing in the ED is performed under the ED CLIA certificate #[id number]. Result Comment: [email or web address] Performed By: #### L [id number] #### [facility] ([facility]) [address] [address] Glucose [Mass/Vol] 160 mg/dL High 70-105 [facility] Comment on above: Order Comment: Waive d Testing in the ED is performed under the ED CLIA certificate #[id number]. Result Comment: [email or web address] Performed By: #### L [id number] #### [facility] ([facility]) [address] [place] [address] ALBUMINon 10-03-2024 Albumin [Mass/Vol] 2.5 g/dL Low 3.5-5.7 [facility] Comment on above: Performed By: #### L [id number] ####[facility] ([facility])[address] [facility] [place] [address] BASIC METABOLIC PANELon 09-22 Anion gap [Moles/Vol] 9 mmol/L Normal 7-20 [facility] Comment on above: Performed By: #### L [id number] ####[facility] [place] [address] Calcium [Mass/Vol] 6.6 mg/dL Low 8.6-10.3 [facility] Comment on above: Performed By: #### L [id number] ####[facility] [place] [address] Chloride [Moles/Vol] 110 mmol/L High 98-107 [facility] Comment on above: Performed By: #### L [id number] ####[facility] ([facility])[address] [place] [address] CO2 [Moles/Vol] 23 mmol/L Normal 21-31 [facility] Comment on above: Performed By: #### L [id number] ####[facility] ([facility])[address] [place] [address] Creatinine [Mass/Vol] 1.89 mg/dL High 0.60-1.20 [facility] Comment on above: Performed By: #### L [id number] ####[facility] ([facility])[address] [place] [address] GLOMERULAR FILTRATION RATE ML/MIN/1.73 SQ M.PREDICTED 32.6 mL/min/1.73m*2 Low >60.0 [facility] Comment on above: Result Comment: [facility]???s estimated glomerular filtration rate (eGFR) will no longer include consideration of race in its calculation. The National Kidney Foundation???s eGFR Task Force developed new recommendations for [...] disproportionately affect any one group of individuals. Performed By: #### L [id number] ####[facility] [place] [address] Glucose [Mass/Vol] 164 mg/dL High 70-100 [facility] Comment on above: Performed By: #### L [id number] ####[facility] ([facility])[address] [place] [address] Potassium [Moles/Vol] 3.7 mmol/L Normal 3.5-5.1 [facility] Comment on above: Performed By: #### L [id number] ####[facility] ([facility])[address] [place] [address] Sodium [Moles/Vol] 138 mmol/L Normal 136-145 [facility] Comment on above: Performed By: #### L [id number] ####[facility] ([facility])[address] [place] [address] Urea nitrogen [Mass/Vol] 32 mg/dL High 7-25 [facility] Comment on above: Performed By: #### L [id number] ####[facility] ([facility])[address] [place] [address] UREA NITROGEN/CREATININE (MASS RATIO) IN SER/PLAS 16.9 Normal [facility] Comment on above: Performed By: #### L [id number] ####[facility] ([facility])[address] [place] [address] CBC WITH AUTO DIFFERENTIALon 10-03-2024 Basophils (Bld) [#/Vol] 0.04 10*3/uL Normal 0.00-0.20 [facility] Comment on above: Performed By: #### L [id number] ####[facility] ([facility])[address] [place] [address] Basophils/100 WBC (Bld) 0.5 % Normal 0.0-1.0 [facility] Comment on above: Performed By: #### L [id number] ####[facility] ([facility])[address] [place] [address] Eosinophils (Bld) [#/Vol] 0.09 10*3/uL Normal 0.00-0.50 [facility] Comment on above: Performed By: #### L [id number] ####[facility] ([facility])[address] [place] [address] Eosinophils/100 WBC (Bld) 1.2 % Normal 0.0-6.0 [facility] Comment on above: Performed By: #### L [id number] ####[facility] ([facility])[address] [place] [address] Erythrocyte distribution width (RBC) [Ratio] 13.5 % Normal 11.5-15.0 [facility] Comment on above: Performed By: #### L [id number] ####[facility] [place] [address] ERYTHROCYTE MEAN CORPUSCULAR HEMOGLOBIN CONCENTRATION (G/DL) BY AUTOMATED 32.7 g/dL Normal 32.0-35.0 [facility] Comment on above: Performed By: #### L [id number] ####[facility] ([facility] [place] [address] Hematocrit (Bld) [Volume fraction] 26.6 % Low 36.0-45.0 [facility] Comment on above: Performed By: #### L [id number] ####[facility] ([facility])[address] [place] [address] Hemoglobin (Bld) [Mass/Vol] 8.7 g/dL Low 12.0-15.0 [facility] Comment on above: Performed By: #### L [id number] ####[facility] ([facility])[address] [place] [address] Immature granulocytes (Bld) [#/Vol] 0.03 10*3/uL Normal 0.00-0.20 [facility] Comment on above: Performed By: #### L [id number] ####[facility] ([facility])[address] [place] [address] Immature granulocytes/100 WBC (Bld) 0.4 % Normal 0.0-1.0 [facility] Comment on above: Performed By: #### L [id number] ####[facility] ([facility])[address] [place] [address] Lymphocytes (Bld) [#/Vol] 1.44 10*3/uL Normal 1.20-4.00 [facility] Comment on above: Performed By: #### L [id number] ####[facility] [facility] ([facility] [place] [address] Lymphocytes/100 WBC (Bld) 19.6 % Low 20.0-45.0 [facility] Comment on above: Performed By: #### L [id number] ####[facility] ([facility])[address] [place] [address] MCH (RBC) [Entitic mass] 30.4 pg Normal 27.0-33.0 [facility] Comment on above: Performed By: #### L [id number] ####[facility] ([facility])[address] [place] [address] MCV (RBC) [Entitic vol] 93.0 fL Normal 82.0-98.0 [facility] Comment on above: Performed By: #### L [id number] ####[facility] ([facility])[address] [place] [address] Monocytes (Bld) [#/Vol] 0.49 10*3/uL Normal 0.10-1.00 [facility] Comment on above: Performed By: #### L [id number] ####[facility] ([facility])[address] [place] [address] Monocytes/100 WBC (Bld) 6.7 % Normal 5.0-12.0 [facility] Comment on above: Performed By: #### L [id number] ####[facility] ([facility])[address] [place] [address] Neutrophils (Bld) [#/Vol] 5.26 10*3/uL Normal 1.60-7.60 [facility] Comment on above: Performed By: #### L [id number] ####[facility] ([facility])[address] [place] [address] Neutrophils/100 WBC (Bld) 71.6 % Normal 40.0-72.0 [facility] Comment on above: Performed By: #### L [id number] ####[facility] ([facility])[address] [place] [address] NRBC (PER 100 WBCS) BY AUTOMATED COUNT 0.0 % Normal 0 [facility] Comment on above: Performed By: #### L [id number] ####[facility] ([facility])[address] [place] [address] PLATELETS (10*3/UL) IN BLOOD AUTOMATED COUNT 224 10*3/uL Normal 150-400 [facility] Comment on above: Performed By: #### L [id number] ####[facility] ([facility])[address] [place] [address] RBC (Bld) [#/Vol] 2.86 10*6/uL Low 3.80-5.00 [facility] Comment on above: Performed By: #### L [id number] ####[facility] ([facility])[address] [place] [address] WBC (Bld) [#/Vol] 7.35 10*3/uL Normal 4.00-10.60 [facility] Comment on above: Performed By: #### L [id number] ####[facility] ([facility])[address] [place] [address] POCT GLUCOSE METER UNSOLICIT ED RESULTSon 10-03-2024 Glucose [Mass/Vol] 168 mg/dL High 70-105 [facility] Comment on above: Order Comment: Waive d Testing in the ED is performed under the ED CLIA certificate #[id number]. Result Comment: [email or web address] Critical Value Noted Performed By: #### L [id number] #### [facility] ([facility]) [address] [place] [address] Glucose [Mass/Vol] 96 mg/dL Normal 70-105 [facility] Comment on above: Order Comment: Waive d Testing in the ED is performed under the ED CLIA certificate #[id number]. Result Comment: [email or web address] Performed By: #### L [id number] ####[facility] ([facility])[address] [place] [address] Glucose [Mass/Vol] 171 mg/dL High 70-105 [facility] Comment on above: Order Comment: Waive d Testing in the ED is performed under the ED CLIA certificate #[id number]. Result Comment: [email or web address] Performed By: #### L [id number] ####[facility] [place] [address] Glucose [Mass/Vol] 105 mg/dL Normal 70-105 [facility] Comment on above: Order Comment: Waive d Testing in the ED is performed under the ED CLIA certificate #[id number]. Result Comment: [email or web address] Performed By: #### L [id number] ####[facility] ([facility])[address] [place] [address] BASIC METABOLIC PANELon 05- Anion gap [Moles/Vol] 13 mmol/L Normal 7-20 [facility] Comment on above: Performed By: #### L [id number] #### [facility] [address] [place] [address] Calcium [Mass/Vol] 7.3 mg/dL Low 8.6-10.3 [facility] Comment on above: Performed By: #### L [id number] #### [facility] [address] [place] [address] Chloride [Moles/Vol] 105 mmol/L Normal 98-107 [facility] Comment on above: Performed By: #### L [id number] #### [facility] ([facility]) [address] [place] [address] CO2 [Moles/Vol] 20 mmol/L Low 21-31 [facility] Comment on above: Performed By: #### L [id number] #### [facility] ([facility]) [address] [place] [address] Creatinine [Mass/Vol] 3.00 mg/dL High 0.60-1.20 [facility] Comment on above: Performed By: #### L [id number] #### [facility] ([facility]) [address] [place] [address] GLOMERULAR FILTRATION RATE ML/MIN/1.73 SQ M.PREDICTED 18.7 mL/min/1.73m*2 Low >60.0 [facility] Comment on above: Result Comment: The [facility]???s estimated glomerular filtration rate (eGFR) will no longer include consideration of race in its calculation. The National Kidney Foundation???s eGFR Task Force developed new recommendations for [...] disproportionately affect any one group of individuals. Performed By: #### L [id number] #### [facility] ([facility]) [address] [facility] [place] [address] Glucose [Mass/Vol] 239 mg/dL High 70-100 [facility] Comment on above: Performed By: #### L [id number] #### [facility] ([facility]) [address] [place] [address] Potassium [Moles/Vol] 4.2 mmol/L Normal 3.5-5.1 [facility] Comment on above: Performed By: #### L [id number] #### [facility] ([facility]) [address] [facility] [place] [address] Sodium [Moles/Vol] 134 mmol/L Low 136-145 [facility] Comment on above: Performed By: #### L [id number] #### [facility] ([facility]) [address] [facility] [place] [address] Urea nitrogen [Mass/Vol] 29 mg/dL High 7-25 [facility] Comment on above: Performed By: #### L [id number] #### [facility] ([facility]) [address] [place] [address] UREA NITROGEN/CREATININE (MASS RATIO) IN SER/PLAS 9.7 Normal [facility] Comment on above: Performed By: #### L [id number] #### [facility] ([facility]) [address] [place] [address] CKon 10-02-2024 CREATINE KINASE (U/L) IN SER/PLAS 56.0 U/L Normal 30.0-223.0 [facility] Comment on above: Performed By: #### L [id number] #### [facility] ([facility]) [address] [place] [address] CONSULTon 10-02-2024 CONSULT ----- ----- Attestation signed by Elisabeth Fowler MD at 10/03/2024 8:51 AM I personally saw and examined the patient on the same date of service as resident/fellow John Correa MD. I discussed the findings and therapeutic plan with the John Correa MD. I agree with the documentation, except for any edits/updates below. Continue to monitor kidney function and electrolytes. Avoid nephrotoxic medications. Elisabeth Fowler MD Faculty, Division of Nephrology, Department of Medicine, [facility]. ----- Nephrology Consult Note Patient : Addie Montes Organ; 49 y.o. Location: 5160/5160-01 Attending: Maye Ortiz DO Admit Date: 10/01/2024 Hospital Day: 1 Reason for Consult: SOLO on CKD3. History of Present Illness: Addie Jean Baptiste is an 49 y.o. 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 Patient has a known seizure disorder and is on chronic maintenance therapy with the Keppra 1 g twice daily. She states that the seizures episodes happen with frequently multiple times a week. She also reports of having episodes of intermittent substernal chest discomfort over the past week, moderate intensity /10, aching in nature sometimes lasting for few hours, self resolving, nonradiating, not associated other cardiac symptoms. She also reports generalized pain fibromyalgia/myofascial syndrome has been follows with pain medicine for pain control. She has a history of sick sinus syndrome status post pacemaker implantation in 2011, s/p right atrial extraction due to insulation break. She denies of having home transmitter system for the pacemaker system and had not had follow-up with the cardiology team over the past several years. Had a Lexiscan stress test in 02/18/2023 which showed a normal myocardial perfusion imaging. Last transthoracic echo done at outside hospital showed normal LV systolic function with EF 60 to 65%, no wall motion abnormalities, no significant valvular abnormalities. Her weight is a notable for blood pressure of 90/48 mmHg, pulse rate 92 bpm, temperature 97.9, SpO2 97% on room air. Basic labs notable for CBC with normal WBC, hemoglobin 12.8 g/dL, normal platelets. BMP notable for sodium 133/potassium 3.6, bicarb 26, creatinine 2.04, glucose 154 mg/dL, elevated lactate of 3.2. EKG showed sinus rhythm with nonspecific ST-T changes, right atrial enlargement. High sensitive troponin levels were noted to be elevated 180-->166 pg/mL. [facility] Cardiology was consulted from [place] ED and she is transferred here for further management. She has not been initiated on heparin infusion. Review of Systems: Review of Systems Constitutional: Negative for chills, fatigue and fever. Respiratory: Negative for cough and shortness of breath. Cardiovascular: Positive for chest pain. Negative for palpitations and leg swelling. Gastrointestinal: Negative for abdominal distention, abdominal pain, blood in stool, constipation, diarrhea, nausea and vomiting. Endocrine: Negative for polyuria. Genitourinary: Negative for decreased urine volume, dysuria and urgency. Musculoskeletal: Negative for arthralgias and back pain. Neurological: Negative for syncope, weakness and headaches. Input/Output: I/O last 3 completed shifts: In: 750 (5.5 mL/kg) [I.V.:700 (5.2 mL/kg); IV Piggyback:50] Out: - (0 mL/kg) Weight: 135.5 kg Vital Signs: Temperature: Temp: 37.1 ???C (98.7 ???F) TMax: Temp (24hrs), Av.6 ???C (97.8 ???F), Min:36.1 ???C (96.9 ???F), Max:37.1 ???C (98.7 ???F) Respirations: Resp: 15 Pulse: Heart Rate: 60 BP: BP: 98/63 BP Range: Systolic (24hrs), Av , Min:85 , Max:110 Diastolic (24hrs), Av, Min:52, Max:91 Wt Readings from Last 3 Encounters: 10/02/24 135 kg (298 lb 11.2 oz) 09/29/19 99.8 kg (220 lb) Physical Examination: Physical Exam Constitutional: Appearance: Normal appearance. HENT: Head: Normocephalic and atraumatic. Cardiovascular: Rate and Rhythm: Normal rate and regular rhythm. Pulses: Normal pulses. Heart sounds: Normal heart sounds. Pulmonary: Breath sounds: Normal breath sounds. Abdominal: General: Abdomen is flat. Palpations: Abdomen is soft. Musculoskeletal: Right lower leg: No edema. Left lower leg: No edema. Neurolog (more content not included)... Normal [facility] CREATININE, URINE, RANDOMon 10-02-2024 Creatinine (U) [Mass/Vol] 200.0 mg/dL Normal 26-299 [facility] Comment on above: Performed By: #### L [id number] #### [facility] ([facility]) [address] [place] [address] MAGNESIUMon 10-02-2024 Magnesium [Mass/Vol] 2.2 mg/dL Normal 1.9-2.7 [facility] Comment on above: Performed By: #### L [id number] #### [facility] ([facility]) [address] [place] [address] POCT GLUCOSE METER UNSOLICIT ED RESULTSon 10-02-2024 Glucose [Mass/Vol] 314 mg/dL High 70-105 [facility] Comment on above: Order Comment: Waive d Testing in the ED is performed under the ED CLIA certificate #[id number]. Result Comment: [email or web address] [email or web address] Performed By: #### L [id number] #### [facility] ([facility]) [address] [place] [address] Glucose [Mass/Vol] 413 mg/dL High 70-105 [facility] Comment on above: Order Comment: Waive d Testing in the ED is performed under the ED CLIA certificate #[id number]. Result Comment: [email or web address] Performed By: #### L [id number] #### [facility] ([facility]) [address] [place] [address] Glucose [Mass/Vol] 221 mg/dL High 70-105 [facility] Comment on above: Order Comment: Waive d Testing in the ED is performed under the ED CLIA certificate #[id number]. Result Comment: [email or web address] Performed By: #### L [id number] ####[facility] ([facility])[address] [place] [address] Glucose [Mass/Vol] 225 mg/dL High 70-105 [facility] Comment on above: Order Comment: Waive d Testing in the ED is performed under the ED CLIA certificate #[id number]. Result Comment: [email or web address] Performed By: #### L [id number] ####[facility] ([facility])[address] [place] [address] Glucose [Mass/Vol] 249 mg/dL High 70-105 [facility] Comment on above: Order Comment: Waive d Testing in the ED is performed under the ED CLIA certificate #[id number]. Result Comment: [email or web address] [email or web address] Performed By: #### L [id number] #### [facility] ([facility]) [address] [place] [address] Glucose [Mass/Vol] 213 mg/dL High 70-105 [facility] Comment on above: Order Comment: Waive d Testing in the ED is performed under the ED CLIA certificate #[id number]. Result Comment: [email or web address] [email or web address] Performed By: #### L [id number] #### [facility] ([facility]) [address] [place] [address] PROTEIN, URINE, RANDOMon Protein (U) [Mass/Vol] 61.3 mg/dL Normal [facility] Comment on above: Result Comment: Ther e are no established reference values for random urine specimens. Performed By: #### L [id number] ####[facility] ([facility])[address] [place] [address] SODIUM, URINE, RANDOMon 09-22 Sodium (U) [Moles/Vol] 28 mmol/L Normal [facility] Comment on above: Performed By: #### L [id number] #### [facility] ([facility]) [address] [place] [address] URINALYSIS WITH MICROSCOPICo n 10-02-2024 BILIRUBIN, TOTAL PRESENCE IN URINE Negative Normal Negative [facility] Comment on above: Performed By: #### L [id number] #### [facility] ([facility]) [address] [place] [address] CASTS IN URINE Present Abnormal None Seen [facility] Comment on above: Performed By: #### L [id number] #### [facility] ([facility]) [address] [place] [address] Clarity (U) Clear Normal Clear [facility] Comment on above: Performed By: #### L [id number] #### [facility] ([facility]) [address] [place] [address] Color (U) Yellow Normal Colorless, Yellow, Light-Yello w [facility] Comment on above: Performed By: #### L [id number] #### [facility] ([facility]) [address] [place] [address] Glucose (U) [Mass/Vol] mg/dL Abnormal Normal [facility] Comment on above: Performed By: #### L [id number] #### [facility] ([facility]) [address] [place] [address] HEMOGLOBIN PRESENCE IN URINE Negative Normal Negative [facility] Comment on above: Performed By: #### L [id number] #### [facility] ([facility]) [address] [place] [address] HYALINE CASTS GRADED/LPF IN URINE SEDIMENT BY MICROSCOPY 3-5 Abnormal 0-2 [facility] Comment on above: Performed By: #### L [id number] #### [facility] ([facility]) [address] [place] [address] Ketones Ql (U) Negative Normal Negative [facility] Comment on above: Performed By: #### L [id number] #### [facility] ([facility]) [address] [place] [address] LEUKOCYTE ESTERASE PRESENCE IN URINE BY TEST STRIP Moderate Abnormal Negative [facility] Comment on above: Performed By: #### L [id number] #### [facility] ([facility]) [address] [place] [address] NITRITE PRESENCE IN URINE Negative Normal Negative [facility] Comment on above: Performed By: #### L [id number] #### [facility] ([facility]) [address] [place] [address] pH (U) 5.0 [pH] Normal 5.0-8.0 [facility] Comment on above: Performed By: #### L [id number] #### [facility] ([facility]) [address] [place] [address] Protein (U) [Mass/Vol] 30 mg/dL Abnormal Negative [facility] Comment on above: Performed By: #### L [id number] #### [facility] ([facility]) [address] [place] [address] RBC (#/HPF) IN URINE SEDIMENT 0-2 Normal None Seen, 0-2 [facility] Comment on above: Performed By: #### L [id number] #### [facility] ([facility]) [address] [place] [address] Specific gravity (U) [Rel density] 1.020 Normal 1.010-1.030 [facility] Comment on above: Performed By: #### L [id number] #### [facility] ([facility]) [address] [place] [address] SQUAMOUS EPITHELIAL CELLS (#/LPF) IN URINE SEDIMENT Occasional Normal None Seen, Occasional, Few [facility] Comment on above: Performed By: #### L [id number] #### [facility] ([facility]) [address] [place] [address] UROBILINOGEN (MG/DL) IN URINE Normal Normal Normal [facility] Comment on above: Performed By: #### L [id number] #### [facility] ([facility]) [address] [place] [address] WBC (LEUKOCYTE) (#/HPF) IN URINE SEDIMENT 11-20 Abnormal None Seen, 0-2 [facility] Comment on above: Performed By: #### L [id number] #### [facility] ([facility]) [address] [place] [address] B-TYPE NATRIURETIC PEPTIDEon 10-01-2024 Natriuretic peptide B (Bld) [Mass/Vol] 19 pg/mL Normal 0-100 [facility] Comment on above: Performed By: #### L [id number] ####[facility] ([facility])[address] [place] [address] CBC WITH AUTO DIFFERENTIALon 10-01-2024 Basophils (Bld) [#/Vol] 0.07 10*3/uL Normal 0.00-0.20 [facility] Comment on above: Performed By: #### L [id number] ####[facility] [place] [address] Basophils/100 WBC (Bld) 0.9 % Normal 0.0-1.0 [facility] Comment on above: Performed By: #### L [id number] ####[facility] [place] [address] Eosinophils (Bld) [#/Vol] 0.12 10*3/uL Normal 0.00-0.50 [facility] Comment on above: Performed By: #### L [id number] ####[facility] ([facility])[address] [place] [address] Eosinophils/100 WBC (Bld) 1.5 % Normal 0.0-6.0 [facility] Comment on above: Performed By: #### L [id number] ####[facility] ([facility])[address] [place] [address] Erythrocyte distribution width (RBC) [Ratio] 14.1 % Normal 11.5-15.0 [facility] Comment on above: Performed By: #### L [id number] ####[facility] [place] [address] ERYTHROCYTE MEAN CORPUSCULAR HEMOGLOBIN CONCENTRATION (G/DL) BY AUTOMATED 33.6 g/dL Normal 32.0-35.0 [facility] Comment on above: Performed By: #### L [id number] ####[facility] [place] [address] Hematocrit (Bld) [Volume fraction] 34.8 % Low 36.0-45.0 [facility] Comment on above: Performed By: #### L [id number] ####[facility] ([facility])[address] [place] [address] Hemoglobin (Bld) [Mass/Vol] 11.7 g/dL Low 12.0-15.0 [facility] Comment on above: Performed By: #### L [id number] ####[facility] ([facility])[address] [place] [address] Immature granulocytes (Bld) [#/Vol] 0.04 10*3/uL Normal 0.00-0.20 [facility] Comment on above: Performed By: #### L [id number] ####[facility] ([facility])[address] [place] [address] Immature granulocytes/100 WBC (Bld) 0.5 % Normal 0.0-1.0 [facility] Comment on above: Performed By: #### L [id number] ####[facility] ([facility])[address] [place] [address] Lymphocytes (Bld) [#/Vol] 1.88 10*3/uL Normal 1.20-4.00 [facility] Comment on above: Performed By: #### L [id number] ####[facility] ([facility])[address] [place] [address] Lymphocytes/100 WBC (Bld) 23.2 % Normal 20.0-45.0 [facility] Comment on above: Performed By: #### L [id number] ####[facility] ([facility])[address] [place] [address] MCH (RBC) [Entitic mass] 30.5 pg Normal 27.0-33.0 [facility] Comment on above: Performed By: #### L [id number] ####[facility] ([facility])[address] [place] [address] MCV (RBC) [Entitic vol] 90.9 fL Normal 82.0-98.0 [facility] Comment on above: Performed By: #### L [id number] ####[facility] ([facility])[address] [place] [address] Monocytes (Bld) [#/Vol] 0.57 10*3/uL Normal 0.10-1.00 [facility] Comment on above: Performed By: #### L [id number] ####[facility] [place] [address] Monocytes/100 WBC (Bld) 7.0 % Normal 5.0-12.0 [facility] Comment on above: Performed By: #### L [id number] ####[facility] ([facility])[address] [place] [address] Neutrophils (Bld) [#/Vol] 5.41 10*3/uL Normal 1.60-7.60 [facility] Comment on above: Performed By: #### L [id number] ####[facility] [place] [address] Neutrophils/100 WBC (Bld) 66.9 % Normal 40.0-72.0 [facility] Comment on above: Performed By: #### L [id number] ####[facility] ([facility])[address] [place] [address] NRBC (PER 100 WBCS) BY AUTOMATED COUNT 0.0 % Normal 0 [facility] Comment on above: Performed By: #### L [id number] ####[facility] [place] [address] PLATELETS (10*3/UL) IN BLOOD AUTOMATED COUNT 325 10*3/uL Normal 150-400 [facility] Comment on above: Performed By: #### L [id number] ####[facility] [place] [address] RBC (Bld) [#/Vol] 3.83 10*6/uL Normal 3.80-5.00 [facility] Comment on above: Performed By: #### L [id number] ####[facility] ([facility])[address] [place] [address] WBC (Bld) [#/Vol] 8.09 10*3/uL Normal 4.00-10.60 [facility] Comment on above: Performed By: #### L [id number] ####[facility] ([facility])[address] [place] [address] COMPREHENSIVE METABOLIC PANE [place] 10-01-2024 Albumin [Mass/Vol] 3.4 g/dL Low 3.5-5.7 [facility] Comment on above: Performed By: #### L [id number] ####[facility] ([facility])[address] [place] [address] ALP [Catalytic activity/Vol] 104 U/L Normal 34-104 [facility] Comment on above: Performed By: #### L [id number] ####[facility] ([facility])[address] [place] [address] ALT [Catalytic activity/Vol] 11 U/L Normal 7-52 [facility] Comment on above: Performed By: #### L [id number] ####[facility] CENTER)[address] [place] [address] Anion gap [Moles/Vol] 14 mmol/L Normal 7-20 [facility] Comment on above: Performed By: #### L [id number] ####[facility] ([facility])[address] [place] [address] AST [Catalytic activity/Vol] 9 U/L Low 13-39 [facility] Comment on above: Performed By: #### L [id number] ####[facility] ([facility])[address] [place] [address] Bilirubin [Mass/Vol] 0.4 mg/dL Normal 0.3-1.0 [facility] Comment on above: Performed By: #### L [id number] ####[facility] ([facility])[address] [place] [address] Calcium [Mass/Vol] 7.6 mg/dL Low 8.6-10.3 [facility] Comment on above: Performed By: #### L [id number] ####[facility] ([facility])[address] [place] [address] Chloride [Moles/Vol] 99 mmol/L Normal 98-107 [facility] Comment on above: Performed By: #### L [id number] ####[facility] ([facility])[address] [place] [address] CO2 [Moles/Vol] 22 mmol/L Normal 21-31 [facility] Comment on above: Performed By: #### L [id number] ####[facility] ([facility])[address] [place] [address] Creatinine [Mass/Vol] 1.99 mg/dL High 0.60-1.20 [facility] Comment on above: Performed By: #### L [id number] ####[facility] ([facility])[address] [place] [address] GLOMERULAR FILTRATION RATE ML/MIN/1.73 SQ M.PREDICTED 30.6 mL/min/1.73m*2 Low >60.0 [facility] Comment on above: Result Comment: The [facility]???s estimated glomerular filtration rate (eGFR) will no longer include consideration of race in its calculation. The National Kidney Foundation???s eGFR Task Force developed new recommendations for [...] disproportionately affect any one group of individuals. Performed By: #### L [id number] ####[facility] ([facility])[address] [place] [address] Glucose [Mass/Vol] 531 mg/dL Critically high 70-100 [facility] Comment on above: Performed By: #### L [id number] ####[facility] ([facility])[address] [place] [address] Potassium [Moles/Vol] 4.1 mmol/L Normal 3.5-5.1 [facility] Comment on above: Performed By: #### L [id number] ####[facility] (BE[facility])[address] [place] [address] Protein [Mass/Vol] 6.1 g/dL Normal 6.0-8.3 [facility] Comment on above: Performed By: #### L [id number] ####[facility] ([facility])[address] [facility] [address] Sodium [Moles/Vol] 131 mmol/L Low 136-145 [facility] Comment on above: Performed By: #### L [id number] ####[facility] ([facility])[address] [place] [address] Urea nitrogen [Mass/Vol] 26 mg/dL High 7-25 [facility] Comment on above: Performed By: #### L [id number] ####[facility] ([facility])[address] [place] [address] UREA NITROGEN/CREATININE (MASS RATIO) IN SER/PLAS 13.1 Normal [facility] Comment on above: Performed By: #### L [id number] ####[facility] ([facility])[address] [place] [address] CONSULTon 10-01-2024 CONSULT [facility] Vascular/Endovascular Surgery Marketing Technology Coordinator Complaint Left foot wound History and Present Illness Addie Jean Baptiste is a 49 y.o. White female with history of HTN, T2DM, seizure disorder, left hallux amputation for osteomyelitis who presents with left foot plantar ulcer. She is currently secondary to chest pains. She does have a small ulcer of the underside of her left foot. The ulcer appears stable with no active drainage, no erythema. She denies any fevers or chills. Past Medical History Past Medical History: Diagnosis Date Anxiety Bipolar 1 disorder (CMS/HCC) Cardiac arrest (CMS/HCC) 2019 Chronic back pain Chronic kidney disease Coronary artery disease Depression Diabetes mellitus (CMS/HCC) Hypertension Insomnia Pacemaker Schizoaffective disorder (CMS/HCC) Seizures (CMS/HCC) Stroke (CMS/HCC) Past Surgical History Past Surgical History: Procedure Laterality Date CARDIAC PACEMAKER PLACEMENT CHOLECYSTECTOMY HYSTERECTOMY TOE AMPUTATION Allergies Allergies Allergen Reactions Codeine Other, Hives, Rash and GI intolerance Get very angry Other reaction(s): Aggressive Behavior hives Fentanyl GI intolerance, Hallucinations, Nausea And Vomiting and Other Other Reaction(s): Renal Failure Linezolid GI intolerance, Nausea And Vomiting and Other Other Reaction(s): Renal Failure Lorazepam Hallucinations and Other Other Reaction(s): Other (See Comments), Renal Failure Morphine GI intolerance, Other and Rash Other Reaction(s): Aggressive Behavior hives Get very angry Other reaction(s): Aggressive Behavior Tramadol GI intolerance, Other, Hives, Rash and Unknown Other Reaction(s): Other (See Comments) seizures seizures Vancomycin Other and Hives Other Reaction(s): Contraindication-Medical Surgical, KIDNEY & URINARY TRACT DISORDERS EXCEPT RENAL FAILURE W MAJOR CC, Other (See Comments) Shut down her kidneys Shuts my kidneys down Shuts kidney down Shuts my kidneys down Shut down her kidneys Shuts kidney down Propoxyphene N-Acetaminophen GI intolerance and Other Acetaminophen Other Adhesive Tape-Silicones Itching Nsaids (Non-Steroidal Anti-Inflammatory Drug) Unknown shuts my kidney's down Prochlorperazine Other Other Reaction(s): Other (See Comments) She reports Compazine made her feel anxious and grumpy She reports Compazine made her feel anxious and grumpy Propoxyphene GI intolerance and Nausea And Vomiting Current Medications aspirin, 81 mg, oral, Daily atorvastatin, 20 mg, oral, Nightly brexpiprazole, 1 mg, oral, Daily cefTRIAXone, 2 g, intravenous, q24h citalopram, 40 mg, oral, Daily enoxaparin, 40 mg, subcutaneous, Daily insulin glargine, 12 Units, subcutaneous, BID insulin lispro, 0-10 Units, subcutaneous, TID with meals And insulin lispro, 0-8 Units, subcutaneous, Nightly levETIRAcetam, 1,000 mg, oral, BID [START ON 10/02/2024] levothyroxine, 75 mcg, oral, Daily before breakfast metoprolol succinate XL, 50 mg, oral, Daily nortriptyline, 25 mg, oral, Nightly paliperidone, 9 mg, oral, q AM [START ON 10/02/2024] pantoprazole, 40 mg, oral, Daily before breakfast pregabalin, 75 mg, oral, BID QUEtiapine, 400 mg, oral, Nightly sennosides-docusate sodium, 1 tablet, oral, Nightly tiZANidine, 4 mg, oral, TID Home Medications Medications Prior to Admission Medication Sig Dispense Refill Last Dose aspirin 81 mg EC tablet Take 81 mg by mouth in the morning. brexpiprazole (Rexulti) 1 mg tablet Take 1 mg by mouth in the morning. chlorthalidone (Hygroton) 25 mg tablet Take 25 mg by mouth in the morning. citalopram (CeleXA) 40 mg tablet Take 40 mg by mouth in the morning. diphenhydrAMINE-acetamino phen (Tylenol PM) 25-500 mg per tablet Take 1 tablet by mouth if needed at bedtime for sleep. hydrOXYzine HCL (Atarax) 50 mg tablet Take 50 mg by mouth every 6 (six) hours if needed for itching. insulin lispro (HumaLOG) 100 unit/mL injection Inject under the skin with breakfast, with lunch, and with evening meal. Sliding scale levETIRAcetam (Keppra) 1,000 mg tablet Take 1,000 mg by mouth two times daily. levothyroxine (Synthroid, Levoxyl) 75 mcg tablet Take 75 mcg by mouth before breakfast. lisinopril 40 mg tablet Take 40 mg by mouth in the morning. loratadine (Claritin) 10 mg tablet Take 10 mg by mouth in the morning. metoprolol succinate XL (Toprol-XL) 50 mg 24 hr tablet Take 50 mg by mouth in the morning. Do not crush or chew. nortriptyline (Pamelor) 25 mg capsule Take 25 mg by mouth at bedtime. ondansetron (Zofran) 4 mg tablet Take 4 mg by mouth every 8 (eight) hours if needed for nausea or vomiting. oxyCODONE-acetaminophen (Percocet) 5-325 mg tablet Take 1 tablet by mouth every 8 (eight) hours if needed for severe pain (8-10 pain score). paliperidone (Invega) 6 mg 24 hr tablet Take 6 mg by mouth in the morning. Do not crush, chew, or split. pantoprazole (ProtoNix) 40 mg EC (more content not included)... [facility] CONSULT ----- ----- Attestation with edits by Juan C Crabtree MD at 10/01/2024 11:36 PM I personally saw and examined the patient on the same date of service as resident/fellow Dr Ho. I discussed the findings and therapeutic plan with the resident/fellow Dr ho. I agree with the documentation, except for any edits/updates below. Teaching Physician's Revisions: None Juan C Crabtree MD, [facility] ----- Cardiology Consult Note Reason for Consult: Elevated troponin HPI: Addie Jean Baptiste is a 49 y.o. female with past history remarkable for primary hypertension, mixed hyperlipidemia, type 2 diabetes mellitus, sick sinus syndrome s/p PPM placement around 2011, she had a generator replacement few years later for a MRI compatible generator, she reported that the device was upgraded to ICD later in [facility] but we could not find record of that. She also has seizure disorder. She presented to [facility] as transfer from [facility] where she initially presented after a seizure episode associated with vomiting.patient reports 2 seizures episodes prior to this the last couple days. Patient reports that she has been having frequent seizure episodes and she was going to [place] for further evaluation. Her initial labs were remarkable for slightly elevated troponin, elevated lactate, and creatinine of 2.04. He reports episodes of chest pain at rest not related to exertion on and off which last for few minutes. No chest pain in association with that she is seizure disorder. The patient reports chronic exertional dyspnea. She denies orthopnea or paroxysmal nocturnal dyspnea. She reports that she has sleep apnea but she does not wear CPAP. She denies dizziness or palpitations or legs edema. Upon presentation to [facility], she was afebrile and hemodynamically stable, labs remarkable for Glucose greater than 500, and creatinine of 1.9. Cardiology team consulted given elevated troponin. She is a longtime smoker of cigarettes at least 1 pack a day but currently she vapes nicotine. She denies alcohol or illicit drugs Cardiology ROS: Review of Systems Constitutional: Positive for fatigue. Negative for activity change and appetite change. Respiratory: Negative for chest tightness, shortness of breath and wheezing. Cardiovascular: Negative for chest pain, palpitations and leg swelling. Gastrointestinal: Negative for abdominal pain, nausea and vomiting. Neurological: Positive for seizures. Negative for dizziness and light-headedness. Past Medical History She has a past medical history of Anxiety, Bipolar 1 disorder ([facility]), Cardiac arrest ([facility]) (2019), Chronic back pain, Chronic kidney disease, Coronary artery disease, Depression, Diabetes mellitus ([facility]), Hypertension, Insomnia, Pacemaker, Schizoaffective disorder ([facility]), Seizures ([facility]), and Stroke ([facility]). Surgical History She has a past surgical history that includes Cholecystectomy; Hysterectomy; Cardiac pacemaker placement; and Toe amputation. Social History She reports that she has been smoking cigarettes. She has never used smokeless tobacco. She reports that she does not drink alcohol and does not use drugs. Family History Family History Family history unknown: Yes Allergies Codeine, Fentanyl, Linezolid, Lorazepam, Morphine, Tramadol, Vancomycin, Propoxyphene n-acetaminophen, Acetaminophen, Adhesive tape-silicones, Nsaids (non-steroidal anti-inflammatory drug), Prochlorperazine, and Propoxyphene Medications Current Outpatient Medications Medication Instructions aspirin 81 mg, oral, Daily brexpiprazole (REXULTI) 1 mg, oral, Daily chlorthalidone (HYGROTON) 25 mg, oral, Daily citalopram (CELEXA) 40 mg, oral, Daily diphenhydrAMINE-acetamino phen (Tylenol PM) 25-500 mg per tablet 1 tablet, oral, Nightly PRN hydrOXYzine HCL (ATARAX) 50 mg, oral, Every 6 hours PRN insulin lispro (HumaLOG) 100 unit/mL injection subcutaneous, 3 times daily with meals, Sliding scale levETIRAcetam (KEPPRA) 1,000 mg, oral, 2 times daily levothyroxine (SYNTHROID, LEVOXYL) 75 mcg, oral, Daily before breakfast lisinopril 40 mg, oral, Daily loratadine (CLARITIN) 10 mg, oral, Daily metoprolol succinate XL (TOPROL-XL) 50 mg, oral, Daily, Do not crush or chew. nortriptyline (PAMELOR) 25 mg, oral, Nightly ondansetron (ZOFRAN) 4 mg, oral, Every 8 hours PRN oxyCODONE-acetaminophen (Percocet) 5-325 mg tablet 1 tablet, oral, Every 8 hours PRN paliperidone (INVEGA) 6 mg, oral, Every morning, Do not crush, chew, or split. pantoprazole (PROTONIX) 40 mg, oral, Daily before breakfast, Do not crush, chew, or split. polyethylene glycol (GLYCOLAX) 17 g, oral, Daily PRN pregabalin (LYRICA) 75 mg, oral, 2 times daily QUEtiapine (SEROQUEL) 400 mg, oral, Nightly tiZANidine (ZANAFLEX) 8 mg, oral, 3 times daily urea (more content not included)... Normal [facility] HEMOGLOBIN A1Con 10-01-2024 Glucose [Mass/Vol] 260 mg/dL Normal [facility] Comment on above: Performed By: #### L [id number] #### [facility] ([facility]) [address] [place] [address] HbA1c (Bld) [Mass fraction] 10.7 % High 4.0-6.0 [facility] Comment on above: Performed By: #### L [id number] #### [facility] ([facility]) [address] [place] [address] HIGH SENSITIVITY TROPONIN Io n 10-01-2024 HS TROPONIN I (NG/L) 72 ng/L Critically high <15 [facility] Comment on above: Performed By: #### L [id number] #### [facility] ([facility]) [address] [place] [address] LACTIC ACID WITH 4 HOUR REFL EXon 10-01-2024 LACTATE (MMOL/L) IN SER/PLAS 3.1 mmol/L Critically high 0.5-2.2 [facility] Comment on above: Result Comment: Prev ious result verified on 10/01/2024 1150 on specimen/case [id number] called with component Lactate blood venous for procedure Lactic acid, venous, whole blood with reflex with value 3.4 mmol/L. Performed By: #### L [id number] #### [facility] ([facility]) [address] [place] [address] LACTATE (MMOL/L) IN SER/PLAS 3.4 mmol/L Critically high 0.5-2.2 [facility] Comment on above: Performed By: #### L [id number] ####[facility] ([facility])[address] [place] [address] LIPID PANELon 10-01-2024 CHOL/HDL 4.5 mg/dL Normal [facility] Comment on above: Performed By: #### L [id number] ####[facility] ([facility])[address] [place] [address] Cholesterol [Mass/Vol] 219 mg/dL High 120-200 [facility] Comment on above: Performed By: #### L [id number] ####[facility] ([facility])[address] [place] [address] Magnesium [Mass/Vol] 207 mg/dL High <150 [facility] Comment on above: Result Comment: TRIG LYCERIDE REFERENCE RANGE: 20 YEARS AND OLDER CARDIOVASCULAR RISK LESS THAN 150 mg/dL LOW RISK 150 TO 199 mg/dL BORDERLINE RISK 200 mg/dL AND GREATER HIGH RISK Performed By: #### L [id number] ####[facility] ([facility])[address] [place] [address] Magnesium [Mass/Vol] 129 mg/dL Normal 0-160 [facility] Comment on above: Performed By: #### L [id number] ####[facility] ([facility])[address] [place] [address] Magnesium [Mass/Vol] 49 mg/dL Normal 23-92 [facility] Comment on above: Performed By: #### L [id number] ####[facility] [place] [address] NON HDL CHOL. (LDL+VLDL) 170 Normal [facility] Comment on above: Performed By: #### L [id number] ####[facility] ([facility])[address] [place] [address] TOTAL VLDL-C 41 mg/dL High 0-40 [facility] Comment on above: Performed By: #### L [id number] ####[facility] ([facility])[address] [place] [address] MAGNESIUMon 10-01-2024 Magnesium [Mass/Vol] 1.5 mg/dL Low 1.9-2.7 [facility] Comment on above: Performed By: #### L [id number] ####[facility] ([facility])[address] [place] [address] POCT GLUCOSE METER UNSOLICIT ED RESULTSon 10-01-2024 Glucose [Mass/Vol] 134 mg/dL High 70-105 [facility] Comment on above: Order Comment: Waive d Testing in the ED is performed under the ED CLIA certificate #[id number]. Result Comment: amcn [email or web address] Performed By: #### L [id number] ####[facility] ([facility])[address] [place] [address] Glucose [Mass/Vol] 294 mg/dL High 70-105 [facility] Comment on above: Order Comment: Waive d Testing in the ED is performed under the ED CLIA certificate #[id number]. Result Comment: tsmi di2 Performed By: #### L [id number] #### [facility] ([facility]) [address] [place] [address] Glucose [Mass/Vol] 406 mg/dL High 70-105 [facility] Comment on above: Order Comment: Waive d Testing in the ED is performed under the ED CLIA certificate #[id number]. Result Comment: tsmi di2 Performed By: #### L [id number] #### [facility] ([facility]) [address] [place] [address] TSH3 REFLEX TO FT4on 025 THYROTROPIN (MIU/L) IN SER/PLAS BY DETECTION LIMIT <= 0.05 MIU/L 3.71 mIU/L Normal 0.34-5.60 [facility] Comment on above: Performed By: #### L [id number] #### [facility] ([facility]) [address] [place] [address] XR LUMBAR SPINE 2-3 VIEWS (S TANDARD)on 09-23-2024 XR LUMBAR SPINE 2-3 VIEWS (STANDARD) Normal [facility] Comment on above: Order Comment: Stand ing AND AP LateralInjury/Trauma or Illness?:Illness/OtherHow long have you had these symptoms (acute/chronic)?:UnknownReason for exam?:Lumbar painHistory of cancer?:uSurgeries, chemotherapy, or radiation?:pacemakerType of Exam?:UnknownAdditional signs and symptoms?:none BASIC METABOLIC PANELon Anion gap [Moles/Vol] 20 mmol/L Normal 10-20 [facility] Comment on above: Order Comment: [facility] has implemented the eGFR calculation approach that does not have a coefficient for race that conforms to the NKF-ASN Task Force Recommendations. Performed By: #### [id number] ####[facility] [address] [place], [place] [address] Abbi Choudhary M.D. [id number] Calcium [Mass/Vol] 8.9 mg/dL Normal 8.4-10.2 [facility] Comment on above: Order Comment: [facility] has implemented the eGFR calculation approach that does not have a coefficient for race that conforms to the NKF-ASN Task Force Recommendations. Performed By: #### [id number] ####[facility] [address] [place], [place] [address] Abbi Choudhary M.D. [id number] Chloride [Moles/Vol] 97 mmol/L Low 98-108 [facility] Comment on above: Order Comment: [facility] has implemented the eGFR calculation approach that does not have a coefficient for race that conforms to the NKF-ASN Task Force Recommendations. Performed By: #### [id number] ####[facility] [address] [place], [place] [address] Abbi Choudhary M.D. [id number] Creatinine [Mass/Vol] 1.71 mg/dL High 0.40-1.10 [facility] Comment on above: Order Comment: [facility] has implemented the eGFR calculation approach that does not have a coefficient for race that conforms to the NKF-ASN Task Force Recommendations. Performed By: #### [id number] ####[facility] [address] [place], [place] [address] Abbi Choudhary M.D. [id number] EGFR 37 mL/min/1.73 m2 Low >=60 [facility] Comment on above: Order Comment: [facility] has implemented the eGFR calculation approach that does not have a coefficient for race that conforms to the NKF-ASN Task Force Recommendations. Result Comment: Lorie mated GFR was calculated using the 2020 CKD-EPI creatinine equation. Performed By: #### [id number] ####[facility] [address] [place], [place] [address] Abbi Choudhary M.D. [id number] Glucose [Mass/Vol] 468 mg/dL Off scale high 65-99 [facility] Comment on above: Order Comment: [facility] has implemented the eGFR calculation approach that does not have a coefficient for race that conforms to the NKF-ASN Task Force Recommendations. Performed By: #### [id number] ####[facility] [address] [place], [place] [address] Abbi Choudhary M.D. [id number] HCO3 (Bld) [Moles/Vol] 17 mmol/L Low 21-32 [facility] Comment on above: Order Comment: [facility] has implemented the eGFR calculation approach that does not have a coefficient for race that conforms to the NKF-ASN Task Force Recommendations. Performed By: #### [id number] ####[facility] [address] [place], [place] [address] Abbi Choudhary M.D. [id number] Potassium [Moles/Vol] 4.0 mmol/L Normal 3.5-5.1 [facility] Comment on above: Order Comment: [facility] has implemented the eGFR calculation approach that does not have a coefficient for race that conforms to the NKF-ASN Task Force Recommendations. Performed By: #### [id number] ####[facility] [address] [place], [place] [address] Abbi Choudhary M.D. [id number] Sodium [Moles/Vol] 130 mmol/L Low 135-145 [facility] Comment on above: Order Comment: [facility] has implemented the eGFR calculation approach that does not have a coefficient for race that conforms to the NKF-ASN Task Force Recommendations. Performed By: #### [id number] ####[facility] [address] [place] [address] Abbi Choudhary M.D. [id number] Urea nitrogen [Mass/Vol] 30 mg/dL High 8-25 [facility] Comment on above: Order Comment: [facility] has implemented the eGFR calculation approach that does not have a coefficient for race that conforms to the NKF-ASN Task Force Recommendations. Performed By: #### [id number] ####[facility] [address] [place] [address] Abbi Choudhary M.D. [id number] Urea nitrogen/Creatinine [Mass ratio] 17.5 mg/mg Normal 10.0-20.0 [facility] Comment on above: Order Comment: [facility] has implemented the eGFR calculation approach that does not have a coefficient for race that conforms to the NKF-ASN Task Force Recommendations. Performed By: #### [id number] ####[facility] [address] [place], [place] [address] Abbi Choudhary M.D. [id number] CBC WITH AUTO DIFFERENTIALon 09-22-2024 AUTO NRBC 0.0 % Normal [facility] Comment on above: Performed By: #### L [id number] ####[facility] [address] [place], [place] [address] Abbi Choudhary M.D. [id number] AUTO NRBC ABS COUNT 0.00 K/mcL Normal 0.00-0.00 [facility] Comment on above: Performed By: #### L [id number] ####[facility] [address] [place], [place] [address] Abbi Choudhary M.D. [id number] BASOPHILS ABSOLUTE COUNT 0.05 K/mcL Normal 0.00-0.30 [facility] Comment on above: Performed By: #### L [id number] ####[facility] [address] [place], [place] [address] Abbi Choudhary M.D. [id number] Basophils/100 WBC (Bld) 0.6 % Normal [facility] Comment on above: Performed By: #### L [id number] ####[facility] [address] [place] [address] Abbi Choudhary M.D. [id number] Eosinophils (Bld) [#/Vol] 0.08 10*3/uL Normal 0.00-0.50 [facility] Comment on above: Performed By: #### L [id number] ####[facility] [address] [place] [address] Abbi Choudhary M.D. [id number] Eosinophils/100 WBC (Bld) 0.9 % Normal [facility] Comment on above: Performed By: #### L [id number] ####[facility] [address] [place] [address] Abbi Choudhary M.D. [id number] Erythrocyte distribution width (RBC) [Ratio] 13.3 % Normal 11.6-14.8 [facility] Comment on above: Performed By: #### L [id number] ####[facility] [address] [place] [address] Abbi Choudhary M.D. [id number] Hematocrit (Bld) [Volume fraction] 35.3 % Low 36.0-46.0 [facility] Comment on above: Performed By: #### L [id number] ####[facility] [address] [place] [address] Abbi Choudhary M.D. [id number] Hemoglobin (Bld) [Mass/Vol] 12.1 g/dL Normal 12.0-16.0 [facility] Comment on above: Performed By: #### L [id number] ####[facility] [address] [place], [place] [address] Abbi Choudhary M.D. [id number] IG ABSOLUTE 0.04 K/mcL Normal 0.00-0.30 [facility] Comment on above: Performed By: #### L [id number] ####[facility] [address] [place] [address] Abbi Choudhary M.D. [id number] IG PERCENT 0.40 % Normal [facility] Comment on above: Result Comment: The IG parameter is the percentage of metamyelocytes, myelocytes and promyelocytes. An immature granulocyte count (IG) of 1% or more suggests the possibility of infection, an IG count of 3% is very likely related to an infection. Performed By: #### L [id number] ####[facility] [address] [place] [address] Abbi Choudhary M.D. [id number] Lymphocytes (Bld) [#/Vol] 1.49 10*3/uL Normal 0.90-4.00 [facility] Comment on above: Performed By: #### L [id number] ####[facility] [address] [place] [address] Abbi Choudhary M.D. [id number] Lymphocytes/100 WBC (Bld) 16.7 % Normal [facility] Comment on above: Performed By: #### L [id number] ####[facility] [address] [place] [address] Abbi Choudhary M.D. [id number] MCH (RBC) [Entitic mass] 30.5 pg Normal 26.0-34.0 [facility] Comment on above: Performed By: #### L [id number] ####[facility] [address] [place] [address] Abbi Choudhary M.D. [id number] MCV (RBC) [Entitic vol] 88.9 fL Normal 80.0-100.0 [facility] Comment on above: Performed By: #### L [id number] ####[facility] [address] [place] [address] Abbi Choudhary M.D. [id number] MEAN CORPUSCULAR HEMOGLOBIN CONC 34.3 g/dL Normal 31.0-37.0 [facility] Comment on above: Performed By: #### L [id number] ####[facility] [address] [place], [place] [address] Abbi Choudhary M.D. [id number] Monocytes (Bld) [#/Vol] 0.41 10*3/uL Normal 0.30-0.90 [facility] Comment on above: Performed By: #### L [id number] ####[facility] [address] [place], [place] [address] Abbi Choudhary M.D. [id number] Monocytes/100 WBC (Bld) 4.6 % Normal [facility] Comment on above: Performed By: #### L [id number] ####[facility] [address] [place] [address] Abbi Choudhary M.D. [id number] NEUTROPHILS ABSOLUTE COUNT 6.83 K/mcL Normal 1.70-7.00 [facility] Comment on above: Performed By: #### L [id number] ####[facility] [address] [place] [address] Abbi Choudhary M.D. [id number] Neutrophils/100 WBC (Bld) 76.8 % Normal [facility] Comment on above: Performed By: #### L [id number] ####[facility] [address] [place] [address] Abbi Choudhary M.D. [id number] Platelet mean volume (Bld) [Entitic vol] 9.7 fL Normal 9.4-12.4 [facility] Comment on above: Performed By: #### L [id number] ####[facility] [address] [place], [place] [address] Abbi Choudhary M.D. [id number] Platelets (Bld) [#/Vol] 283 10*3/uL Normal 150-400 [facility] Comment on above: Performed By: #### L [id number] ####[facility] [address] [place] [address] Abbi Choudhary M.D. [id number] RBC (Bld) [#/Vol] 3.97 10*6/uL Low 4.00-5.20 [facility] Comment on above: Performed By: #### L [id number] ####[facility] [address] [place] [address] Abbi Choudhary M.D. [id number] WBC (Bld) [#/Vol] 8.90 10*3/uL Normal 4.50-11.00 [facility] Comment on above: Performed By: #### L [id number] ####[facility] [address] [place] [address] Abbi Choudhary M.D. [id number] DRUGS OF ABUSE SCREEN, URINE on 09-22-2024 AMPHETAMINE SCREEN, URINE Not detected Normal None Detected [facility] Comment on above: Order Comment: Scree n results should be used for treatment purposes only. Result Comment: Urin e Amphetamine Cutoff: < 1000 ng/mL = None Detected Performed By: #### 4 [id number] ####[facility] [address] [place] [address] Abbi Choudhary M.D. [id number] BARBITURATE SCREEN URINE Not detected Normal None Detected [facility] Comment on above: Order Comment: Scree n results should be used for treatment purposes only. Result Comment: Urin e Barbiturates Cutoff: < 200 ng/mL = None Detected Performed By: #### 4 [id number] ####[facility] [address] [place] [address] Abbi Choudhary M.D. [id number] BENZODIAZEPINE SCREEN, URINE Not detected Normal None Detected [facility] Comment on above: Order Comment: Scree n results should be used for treatment purposes only. Result Comment: Urin e Benzodiazepine Cutoff: < 200 ng/mL = None Detected Performed By: #### 4 6965 ####[facility] [address] [place] [address] Abbi Choudhary M.D. [id number] BUPRENORPHINE, URINE Not detected Normal None Detected [facility] Comment on above: Order Comment: Scree n results should be used for treatment purposes only. Result Comment: Urin e Buprenorphine Cutoff: < 5 ng/mL = None Detected Performed By: #### 4 6965 ####[facility] [address] [place] [address] Abbi Choudhary M.D. [id number] CANNABINOID SCREEN URINE Not detected Normal None Detected [facility] Comment on above: Order Comment: Scree n results should be used for treatment purposes only. Result Comment: Urin e Cannabinoids Cutoff: < 50 ng/mL = None Detected Performed By: #### 4 [id number] ####[facility] [address] [place] [address] Abbi Choudhary M.D. [id number] COCAINE, SCREEN URINE Not detected Normal None Detected [facility] Comment on above: Order Comment: Scree n results should be used for treatment purposes only. Result Comment: Urin e Cocaine Cutoff: < 300 ng/mL = None Detected Performed By: #### 4 6965 ####[facility] [address] [place] [address] Abbi Choudhary M.D. [id number] FENTANYL, URINE Not detected Normal None Detected [facility] Comment on above: Order Comment: Scree n results should be used for treatment purposes only. Result Comment: Urin e Fentanyl Cutoff: < 1 ng/mL = None Detected Performed By: #### 4 [id number] ####[facility] [address] [place] [address] Abbi Choudhary M.D. [id number] METHADONE SCREEN, URINE Not detected Normal None Detected [facility] Comment on above: Order Comment: Scree n results should be used for treatment purposes only. Result Comment: Urin e Methadone Cutoff: < 300 ng/mL = None Detected Performed By: #### 4 [id number] ####[facility] [address] [place] [address] Abbi Choudhary M.D. [id number] OPIATE SCREEN URINE Not detected Normal None Detected [facility] Comment on above: Order Comment: Scree n results should be used for treatment purposes only. Result Comment: Urin e Opiates Cutoff: < 300 ng/mL = None Detected Performed By: #### 4 6965 ####[facility] [address] [place] [address] Abbi Choudhary M.D. [id number] OXYCODONE SCREEN, URINE Not detected Normal None Detected [facility] Comment on above: Order Comment: Scree n results should be used for treatment purposes only. Result Comment: Debora farrell Oxycodone Cutoff: < 100 ng/mL = None Detected Performed By: #### 4 6965 ####[facility] [address] [place], [place] [address] Abbi Choudhary M.D. [id number] ED Prov Noteon 09-22-2024 ED Prov Note Normal [facility] HEPATIC FUNCTION PANELon Albumin [Mass/Vol] 3.5 g/dL Normal 3.2-5.2 [facility] Comment on above: Performed By: #### 4 5866 ####[facility] [address] [place], [place] [address] Abbi Choudhary M.D. [id number] ALP [Catalytic activity/Vol] 107 U/L Normal 40-150 [facility] Comment on above: Performed By: #### 4 5866 ####[facility] [address] [place], [place] [address] Abbi Choudhary M.D. [id number] ALT [Catalytic activity/Vol] 11 U/L Normal 0-35 U/L [facility] Comment on above: Performed By: #### 4 5866 ####[facility] [address] [place], [place] [address] Abbi Choudhary M.D. [id number] AST [Catalytic activity/Vol] 12 U/L Normal 0-35 U/L [facility] Comment on above: Performed By: #### 4 5866 ####[facility] [address] [place], [place] [address] Abbi Choudhary M.D. [id number] Bilirubin [Mass/Vol] 0.3 mg/dL Normal 0.0-1.3 [facility] Comment on above: Performed By: #### 4 5866 ####[facility] [address] [place], [place] [address] Abbi Choudhary M.D. [id number] Bilirubin.indirect [Mass/Vol] 0.2 mg/dL Normal 0.0-0.4 [facility] Comment on above: Performed By: #### 4 [id number] ####[facility] [address] [place], [place] [address] Abbi Choudhary M.D. [id number] Protein [Mass/Vol] 6.5 g/dL Normal 6.0-8.0 [facility] Comment on above: Performed By: #### 4 [id number] ####[facility] [address] [place], [place] [address] Abbi Choudhary M.D. [id number] LEVETIRACETAM LEVELon 2024 LEVETIRACETAM < Low 6.0-46.0 [facility] Comment on above: Performed By: #### 4 7512 ####[facility] [address] [place], [place] [address] Swapnil Brewer M.D. [id number] MORPHOLOGYon 09-22-2024 PLATELET ESTIMATE Normal Normal Normal [facility] Comment on above: Performed By: #### L [id number] ####[facility] [address] [place] [address] Abbi Choudhary M.D. [id number] RBC MORPH SCAN Normal Normal [facility] Comment on above: Result Comment: RBC Indices confirmed with manual peripheral smear review. Performed By: #### L [id number] ####[facility] [address] [place], [place] [address] Abbi Choudhary M.D. [id number] URINALYSISon 09-22-2024 BACTERIA, URINE Few Abnormal None Seen [facility] Comment on above: Order Comment: Micro scopic examination is performed on all urinalysis samples and only positive findings are reported. The test for blood on the chemical analytic portion of urinalysis may also be positive due to hemoglobinuria and myoglobinuria and if red blood cells are present they are quantified by microscopic examination. Performed By: #### 4 6625 ####[facility] [address] [place] [address] Abbi Choudhary M.D. [id number] BILIRUBIN, URINE Negative Normal Negative [facility] Comment on above: Order Comment: Micro scopic examination is performed on all urinalysis samples and only positive findings are reported. The test for blood on the chemical analytic portion of urinalysis may also be positive due to hemoglobinuria and myoglobinuria and if red blood cells are present they are quantified by microscopic examination. Performed By: #### 4 6625 ####[facility] [address] [place], [place] [address] Abbi Choudhary M.D. [id number] BLOOD, URINE Small Abnormal Negative [facility] Comment on above: Order Comment: Micro scopic examination is performed on all urinalysis samples and only positive findings are reported. The test for blood on the chemical analytic portion of urinalysis may also be positive due to hemoglobinuria and myoglobinuria and if red blood cells are present they are quantified by microscopic examination. Performed By: #### 4 6625 ####[facility] [address] [place], [place] [address] Abbi Choudhary M.D. [id number] Clarity (U) Hazy Abnormal Clear [facility] Comment on above: Order Comment: Micro scopic examination is performed on all urinalysis samples and only positive findings are reported. The test for blood on the chemical analytic portion of urinalysis may also be positive due to hemoglobinuria and myoglobinuria and if red blood cells are present they are quantified by microscopic examination. Performed By: #### 4 6625 ####[facility] [address] [place], [place] [address] Abbi Choudhary M.D. [id number] Color (U) Yellow Normal Colorless, Yellow [facility] Comment on above: Order Comment: Micro scopic examination is performed on all urinalysis samples and only positive findings are reported. The test for blood on the chemical analytic portion of urinalysis may also be positive due to hemoglobinuria and myoglobinuria and if red blood cells are present they are quantified by microscopic examination. Performed By: #### 4 6625 ####[facility] [address] [place], [place] [address] Abbi Choudhary M.D. [id number] Glucose Ql (U) >=500 Abnormal Negative [facility] Comment on above: Order Comment: Micro scopic examination is performed on all urinalysis samples and only positive findings are reported. The test for blood on the chemical analytic portion of urinalysis may also be positive due to hemoglobinuria and myoglobinuria and if red blood cells are present they are quantified by microscopic examination. Performed By: #### 4 6625 ####[facility] [address] [place] [address] Abbi Choudhary M.D. [id number] Hyaline casts LM Ql (Urine sed) 0-2 Normal 0-2 [facility] Comment on above: Order Comment: Micro scopic examination is performed on all urinalysis samples and only positive findings are reported. The test for blood on the chemical analytic portion of urinalysis may also be positive due to hemoglobinuria and myoglobinuria and if red blood cells are present they are quantified by microscopic examination. Performed By: #### 4 6625 ####[facility] [address] [place] [address] Abbi Choudhary M.D. [id number] Ketones Ql (U) Negative Normal Negative [facility] Comment on above: Order Comment: Micro scopic examination is performed on all urinalysis samples and only positive findings are reported. The test for blood on the chemical analytic portion of urinalysis may also be positive due to hemoglobinuria and myoglobinuria and if red blood cells are present they are quantified by microscopic examination. Performed By: #### 4 6625 ####[facility] [address] [place], [place] [address] Abbi Choudhary M.D. [id number] Leukocyte esterase Test strip Ql (U) Negative Normal Negative [facility] Comment on above: Order Comment: Micro scopic examination is performed on all urinalysis samples and only positive findings are reported. The test for blood on the chemical analytic portion of urinalysis may also be positive due to hemoglobinuria and myoglobinuria and if red blood cells are present they are quantified by microscopic examination. Performed By: #### 4 6625 ####[facility] [address] [place], [place] [address] Abbi Choudhary M.D. [id number] NITRITE, URINE Negative Normal Negative [facility] Comment on above: Order Comment: Micro scopic examination is performed on all urinalysis samples and only positive findings are reported. The test for blood on the chemical analytic portion of urinalysis may also be positive due to hemoglobinuria and myoglobinuria and if red blood cells are present they are quantified by microscopic examination. Performed By: #### 4 6625 ####[facility] [address] [place], [place] [address] Abbi Choudhary M.D. [id number] pH (U) 5.0 [pH] Normal 5.0-7.0 [facility] Comment on above: Order Comment: Micro scopic examination is performed on all urinalysis samples and only positive findings are reported. The test for blood on the chemical analytic portion of urinalysis may also be positive due to hemoglobinuria and myoglobinuria and if red blood cells are present they are quantified by microscopic examination. Performed By: #### 4 6625 ####[facility] [address] [place] [address] Abbi Choudhary M.D. [id number] Protein (U) [Mass/Vol] 100 mg/dL Abnormal Negative [facility] Comment on above: Order Comment: Micro scopic examination is performed on all urinalysis samples and only positive findings are reported. The test for blood on the chemical analytic portion of urinalysis may also be positive due to hemoglobinuria and myoglobinuria and if red blood cells are present they are quantified by microscopic examination. Performed By: #### 4 6625 ####[facility] [address] [place], [place] [address] Abbi Choudhary M.D. [id number] RBC LM.HPF (Urine sed) [#/Area] 1 /[HPF] Normal 0-3 [facility] Comment on above: Order Comment: Micro scopic examination is performed on all urinalysis samples and only positive findings are reported. The test for blood on the chemical analytic portion of urinalysis may also be positive due to hemoglobinuria and myoglobinuria and if red blood cells are present they are quantified by microscopic examination. Performed By: #### 4 6625 ####[facility] [address] [place], [place] [address] Abbi Choudhary M.D. [id number] Specific gravity (U) [Rel density] 1.017 Normal 1.005-1.025 [facility] Comment on above: Order Comment: Micro scopic examination is performed on all urinalysis samples and only positive findings are reported. The test for blood on the chemical analytic portion of urinalysis may also be positive due to hemoglobinuria and myoglobinuria and if red blood cells are present they are quantified by microscopic examination. Performed By: #### 4 6625 ####[facility] [address] [place], [place] [address] Abbi Choudhary M.D. [id number] SQUAMOUS EPITHELIAL 1 /hpf Normal 0-4 [facility] Comment on above: Order Comment: Micro scopic examination is performed on all urinalysis samples and only positive findings are reported. The test for blood on the chemical analytic portion of urinalysis may also be positive due to hemoglobinuria and myoglobinuria and if red blood cells are present they are quantified by microscopic examination. Performed By: #### 4 6625 ####[facility] [address] [place], [place] [address] Abbi Choudhary M.D. [id number] UROBILINOGEN, URINE <2.0 Normal <2.0 [facility] Comment on above: Order Comment: Micro scopic examination is performed on all urinalysis samples and only positive findings are reported. The test for blood on the chemical analytic portion of urinalysis may also be positive due to hemoglobinuria and myoglobinuria and if red blood cells are present they are quantified by microscopic examination. Performed By: #### 4 6625 ####[facility] [address] [place], [place] [address] Abbi Choudhary M.D. [id number] WBC LM.HPF (Urine sed) [#/Area] 6 /[HPF] High 0-5 [facility] Comment on above: Order Comment: Micro scopic examination is performed on all urinalysis samples and only positive findings are reported. The test for blood on the chemical analytic portion of urinalysis may also be positive due to hemoglobinuria and myoglobinuria and if red blood cells are present they are quantified by microscopic examination. Performed By: #### 4 6625 ####[facility] [address] [place], [place] [address] Abbi Choudhary M.D. [id number] BASIC METABOLIC PANELon 04- Anion gap [Moles/Vol] 15 mmol/L Normal 10-20 [facility] Comment on above: Order Comment: [facility] has implemented the eGFR calculation approach that does not have a coefficient for race that conforms to the NKF-ASN Task Force Recommendations. Performed By: #### 4 6124 ####[facility] [address] [place], [place] [address] Abbi Choudhary M.D. [id number] Calcium [Mass/Vol] 9.4 mg/dL Normal 8.4-10.2 [facility] Comment on above: Order Comment: [facility] has implemented the eGFR calculation approach that does not have a coefficient for race that conforms to the NKF-ASN Task Force Recommendations. Performed By: #### 4 6124 ####[facility] [address] [place], [place] [address] Abbi Choudhary M.D. [id number] Chloride [Moles/Vol] 102 mmol/L Normal 98-108 [facility] Comment on above: Order Comment: [facility] has implemented the eGFR calculation approach that does not have a coefficient for race that conforms to the NKF-ASN Task Force Recommendations. Performed By: #### 4 6124 ####[facility] [address] [place], [place] [address] Abbi Choudhary M.D. [id number] Creatinine [Mass/Vol] 1.75 mg/dL High 0.40-1.10 [facility] Comment on above: Order Comment: [facility] has implemented the eGFR calculation approach that does not have a coefficient for race that conforms to the NKF-ASN Task Force Recommendations. Performed By: #### 4 6124 ####[facility] [address] [place], [place] [address] Abbi Choudhary M.D. [id number] EGFR 36 mL/min/1.73 m2 Low >=60 [facility] Comment on above: Order Comment: [facility] has implemented the eGFR calculation approach that does not have a coefficient for race that conforms to the NKF-ASN Task Force Recommendations. Result Comment: Lorie mated GFR was calculated using the 2020 CKD-EPI creatinine equation. Performed By: #### 4 6124 ####[facility] [address] [place], [place] [address] Abbi Choudhary M.D. [id number] Glucose [Mass/Vol] 237 mg/dL High 65-99 [facility] Comment on above: Order Comment: [facility] has implemented the eGFR calculation approach that does not have a coefficient for race that conforms to the NKF-ASN Task Force Recommendations. Performed By: #### 4 6124 ####[facility] [address] [place], [place] [address] Abbi Choudhary M.D. [id number] HCO3 (Bld) [Moles/Vol] 23 mmol/L Normal 21-32 [facility] Comment on above: Order Comment: [facility] has implemented the eGFR calculation approach that does not have a coefficient for race that conforms to the NKF-ASN Task Force Recommendations. Performed By: #### 4 6124 ####[facility] [address] [place], [place] [address] Abbi Choudhary M.D. [id number] Potassium [Moles/Vol] 3.7 mmol/L Normal 3.5-5.1 [facility] Comment on above: Order Comment: [facility] has implemented the eGFR calculation approach that does not have a coefficient for race that conforms to the NKF-ASN Task Force Recommendations. Performed By: #### 4 6124 ####[facility] [address] [place], [place] [address] Abbi Choudhary M.D. [id number] Sodium [Moles/Vol] 136 mmol/L Normal 135-145 [facility] Comment on above: Order Comment: [facility] has implemented the eGFR calculation approach that does not have a coefficient for race that conforms to the NKF-ASN Task Force Recommendations. Performed By: #### 4 6124 ####[facility] [address] [place], [place] [address] Abbi Choudhary M.D. [id number] Urea nitrogen [Mass/Vol] 26 mg/dL High 8-25 [facility] Comment on above: Order Comment: [facility] has implemented the eGFR calculation approach that does not have a coefficient for race that conforms to the NKF-ASN Task Force Recommendations. Performed By: #### 4 6124 ####[place] [facility] [address] [address] Abbi Choudhary M.D. [id number] Urea nitrogen/Creatinine [Mass ratio] 14.9 mg/mg Normal 10.0-20.0 [facility] Comment on above: Order Comment: [facility] Services has implemented the eGFR calculation approach that does not have a coefficient for race that conforms to the NKF-ASN Task Force Recommendations. Performed By: #### 4 [id number] ####[facility] [address] [place] [address] Abbi Choudhary M.D. [id number] CBC WITH AUTO DIFFERENTIALon 09-18-2024 AUTO NRBC 0.0 % Normal [facility] Comment on above: Performed By: #### L [id number] ####[facility] [address] [address] Abbi Choudhary M.D. [id number] AUTO NRBC ABS COUNT 0.00 K/mcL Normal 0.00-0.00 [facility] Comment on above: Performed By: #### L [id number] ####[facility] [address] [address] Abbi Choudhary M.D. [id number] BASOPHILS ABSOLUTE COUNT 0.05 K/mcL Normal 0.00-0.30 [facility] Comment on above: Performed By: #### L [id number] ####[facility] [address] [address] Abbi Choudhary M.D. [id number] Basophils/100 WBC (Bld) 0.5 % Normal [facility] Comment on above: Performed By: #### L [id number] ####[facility] [address] [address] Abbi Choudhary M.D. [id number] Eosinophils (Bld) [#/Vol] 0.19 10*3/uL Normal 0.00-0.50 [facility] Comment on above: Performed By: #### L [id number] ####[facility] [address] [address] Abbi Choudhary M.D. [id number] Eosinophils/100 WBC (Bld) 2.1 % Normal [facility] Comment on above: Performed By: #### L [id number] ####[facility] [address] [address] Abbi Choudhary M.D. [id number] Erythrocyte distribution width (RBC) [Ratio] 12.6 % Normal 11.6-14.8 [facility] Comment on above: Performed By: #### L [id number] ####[facility] [address] [address] Abbi Choudhary M.D. [id number] Hematocrit (Bld) [Volume fraction] 33.5 % Low 36.0-46.0 [facility] Comment on above: Performed By: #### L [id number] ####[facility] [address] [address] Abbi Choudhary M.D. [id number] Hemoglobin (Bld) [Mass/Vol] 11.6 g/dL Low 12.0-16.0 [facility] Comment on above: Performed By: #### L [id number] ####[facility] [address] [address] Abbi Choudhary M.D. [id number] IG ABSOLUTE 0.07 K/mcL Normal 0.00-0.30 [facility] Comment on above: Performed By: #### L [id number] ####[facility] [address] [address] Abbi Choudhary M.D. [id number] IG PERCENT 0.80 % Normal [facility] Comment on above: Result Comment: The IG parameter is the percentage of metamyelocytes, myelocytes and promyelocytes. An immature granulocyte count (IG) of 1% or more suggests the possibility of infection, an IG count of 3% is very likely related to an infection. Performed By: #### L [id number] ####[facility] [address] [place] [address] Abbi Choudhary M.D. [id number] Lymphocytes (Bld) [#/Vol] 2.26 10*3/uL Normal 0.90-4.00 [facility] Comment on above: Performed By: #### L [id number] ####[facility] [address] [address] Abbi Choudhary M.D. [id number] Lymphocytes/100 WBC (Bld) 24.4 % Normal [facility] Comment on above: Performed By: #### L [id number] ####[facility] [address] [address] Abbi Choudhary M.D. [id number] MCH (RBC) [Entitic mass] 30.4 pg Normal 26.0-34.0 [facility] Comment on above: Performed By: #### L [id number] ####[facility] [address] [address] Abbi Choudhary M.D. [id number] MCV (RBC) [Entitic vol] 87.7 fL Normal 80.0-100.0 [facility] Comment on above: Performed By: #### L [id number] ####[facility] [address] [address] Abbi Choudhary M.D. [id number] MEAN CORPUSCULAR HEMOGLOBIN CONC 34.6 g/dL Normal 31.0-37.0 [facility] Comment on above: Performed By: #### L [id number] ####[facility] [address] [address] Abbi Choudhary M.D. [id number] Monocytes (Bld) [#/Vol] 0.54 10*3/uL Normal 0.30-0.90 [facility] Comment on above: Performed By: #### L [id number] ####[facility] [address] [place], [place] [address] Abbi Choudhary M.D. [id number] Monocytes/100 WBC (Bld) 5.8 % Normal [facility] Comment on above: Performed By: #### L [id number] ####[facility] [address] [place], [place] [address] Abbi Choudhary M.D. [id number] NEUTROPHILS ABSOLUTE COUNT 6.15 K/mcL Normal 1.70-7.00 [facility] Comment on above: Performed By: #### L [id number] ####[facility] [address] [place], [place] [address] Abbi Choudhary M.D. [id number] Neutrophils/100 WBC (Bld) 66.4 % Normal [facility] Comment on above: Performed By: #### L [id number] ####[facility] [address] [place], [place] [address] Abbi Choudhary M.D. [id number] Platelet mean volume (Bld) [Entitic vol] 9.2 fL Low 9.4-12.4 [facility] Comment on above: Performed By: #### L [id number] ####[facility] [address] [address] Abbi Choudhary M.D. [id number] Platelets (Bld) [#/Vol] 290 10*3/uL Normal 150-400 [facility] Comment on above: Performed By: #### L [id number] ####[facility] [address] [place], [place] [address] Abbi Choudhary M.D. [id number] RBC (Bld) [#/Vol] 3.82 10*6/uL Low 4.00-5.20 [facility] Comment on above: Performed By: #### L [id number] ####[facility] [address] [place], [place] [address] Abbi Choudhary M.D. [id number] WBC (Bld) [#/Vol] 9.26 10*3/uL Normal 4.50-11.00 [facility] Comment on above: Performed By: #### L [id number] ####[facility] [address] [place], [place] [address] Abbi Choudhary M.D. [id number] ED Prov Noteon 09-18-2024 ED Prov Note Normal [facility] TROPONIN X 2 (NOW AND REPEAT IN 2 HOURS)on 09-18-2024 BASELINE TROPONIN T NG/L 24 ng/L Off scale high <=14 [facility] Comment on above: Performed By: #### 4 6608 ####[facility] [address] [place], [place] [address] Abbi Choudhary M.D. [id number] TROPONIN T INTERPRETATION Possible acute cardiac injury. Normal [facility] Comment on above: Performed By: #### 4 6608 ####[facility] [address] [place], [place] [address] Abbi Choudhary M.D. [id number] XR ANKLE LEFT 3+ VIEWS (LARISA DARD)on 09-18-2024 XR ANKLE LEFT 3+ VIEWS (STANDARD) Normal [facility] Comment on above: Order Comment: Injur y/Trauma or Illness?:Injury/TraumaHow long have you had these symptoms (acute/chronic)?:AcuteReason for exam?:ankle painHistory of cancer?:uSurgeries, chemotherapy, or radiation?:pacemakerType of Exam?:InitialMechanism of injury?:fall XR CHEST PA/APon 09-18-2024 XR CHEST PA/AP [facility] Comment on above: Order Comment: Injur y/Trauma or Illness?:Illness/OtherHow long have you had these symptoms (acute/chronic)?:AcuteReason for exam?:chest painHistory of cancer?:uSurgeries, chemotherapy, or radiation?:pacemakerType of Exam?:InitialAdditional signs and symptoms?:na XR KNEE LEFT 2 VIEWS ([address] RD)on 09-18-2024 XR KNEE LEFT 2 VIEWS (STANDARD) [facility] Comment on above: Order Comment: Injur y/Trauma or Illness?:Injury/TraumaHow long have you had these symptoms (acute/chronic)?:AcuteReason for exam?:knee painHistory of cancer?:uSurgeries, chemotherapy, or radiation?:pacemakerType of Exam?:InitialMechanism of injury?:fall [facility] 0 08-29-2024 [facility]gent [place] [address] - 2 ORGAN,ADDIE J 1975 (49 F) [id number] Verena Kuhn USABILITY SPECIALIST URG Report #: [id number] (Signed) PCP: No Doctor Urgent Care Clinic [...] coming to . 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 Associated Symptoms: bleeding, controlled Date of Onset (approx): 08/29/24 Time of Onset (approx): 17:30 [address] of Occurrence: home Context: accidental and sharp object use Improves With: applying pressure Worsens With: movement Treatment OLIVE BRINE TESTER: none Provider HPI Details Patient presents today [...] nose Card (more content not included)... Normal [facility] CBC (INCLUDES DIFF/PLT)on Basophils (Bld) [#/Vol] 0.093 10*3/uL Normal 0-200 [facility] Comment on above: Performed By: #### 9 1431, 53086, 866, 899, 496, 6399, 21402 #### [facility] [address] [address] Mailing Machine Assistant: Dean Maddox MD Basophils/100 WBC (Bld) 0.8 % Normal [facility] Comment on above: Performed By: #### 9 1431, 52285, 866, 899, 496, 6399, 63045 #### [facility] [address] [place] [address] Mailing Machine Assistant: Dean Maddox MD Eosinophils (Bld) [#/Vol] 0.22 10*3/uL Normal 15-500 [facility] Comment on above: Performed By: #### 9 1431, 48972, 866, 899, 496, 6399, 36407 #### [facility] [address], [address] [place] [address] Mailing Machine Assistant: Dean Maddox MD Eosinophils/100 WBC (Bld) 1.9 % Normal [facility] Comment on above: Performed By: #### 9 1431, 21475, 866, 899, 496, 6399, 27469 #### [facility] [address] [place] [address] Mailing Machine Assistant: Dean Maddox MD Erythrocyte distribution width (RBC) [Ratio] 12.8 % Normal 11.0-15.0 [facility] Comment on above: Performed By: #### 9 1431, 91416, 866, 899, 496, 6399, 36355 #### [facility] of [address] [address] Mailing Machine Assistant: Dean Maddox MD Hematocrit (Bld) [Volume fraction] 41.1 % Normal 35.0-45.0 [facility] Comment on above: Performed By: #### 9 1431, 72015, 866, 899, 496, 6399, 88665 #### [facility] of [address] [address] Mailing Machine Assistant: Dean Maddox MD Hemoglobin (Bld) [Mass/Vol] 13.8 g/dL Normal 11.7-15.5 [facility] Comment on above: Performed By: #### 9 1431, 40186, 866, 899, 496, 6399, 40693 #### [facility] of [address] [address] Mailing Machine Assistant: Dean Maddox MD Lymphocytes (Bld) [#/Vol] 2.401 10*3/uL Normal 850-3900 [facility] Comment on above: Performed By: #### 9 1431, 61397, 866, 899, 496, 6399, 46361 #### [facility] of [address] [address] Mailing Machine Assistant: Dean Maddox MD Lymphocytes/100 WBC (Bld) 20.7 % Normal [facility] Comment on above: Performed By: #### 9 1431, 55141, 866, 899, 496, 6399, 25950 #### [facility] of [address] [place] [address] Mailing Machine Assistant: Dean Maddox MD MCH (RBC) [Entitic mass] 30.1 pg Normal 27.0-33.0 [facility] Comment on above: Performed By: #### 9 1431, 08393, 866, 899, 496, 6399, 30775 #### [facility] of [address] [address] Mailing Machine Assistant: Dean Maddox MD MCHC (RBC) [Mass/Vol] 33.6 [...] clinical condition. Performed By: #### 9 1431, 40825, 866, 899, 496, 6399, 82993 #### [facility] of [address] [place] [address] Mailing Machine Assistant: Dean Maddox MD MCV (RBC) [Entitic vol] 89.7 fL Normal 80.0-100.0 [facility] Comment on above: Performed By: #### 9 1431, 38544, 866, 899, 496, 6399, 26835 #### [facility] of [address] [place] [address] Mailing Machine Assistant: Dean Maddox MD Monocytes (Bld) [#/Vol] 0.661 10*3/uL Normal 200-950 [facility] Comment on above: Performed By: #### 9 1431, 72263, 866, 899, 496, 6399, 13020 #### [facility] of [address] [place] [address] Mailing Machine Assistant: Dean Maddox MD Monocytes/100 WBC (Bld) 5.7 % Normal [facility] Comment on above: Performed By: #### 9 1431, 06056, 866, 899, 496, 6399, 72031 #### [facility] of [address] [place] [address] Mailing Machine Assistant: Dean Maddox MD Neutrophils (Bld) [#/Vol] 8.224 10*3/uL High 6223-0788 [facility] Comment on above: Performed By: #### 9 1431, 24776, 866, 899, 496, 6399, 21702 #### [facility] of [address] [place] [address] Mailing Machine Assistant: Dean Maddox MD Neutrophils/100 WBC (Bld) 70.9 % Normal [facility] Comment on above: Performed By: #### 9 1431, 62395, 866, 899, 496, 6399, 93928 #### [facility] of [place] [address] Mailing Machine Assistant: Dean Maddox MD Platelet mean volume (Bld) [Entitic vol] 8.9 fL Normal 7.5-12.5 [facility] Comment on above: Performed By: #### 9 1431, 50428, 866, 899, 496, 6399, 40257 #### [facility] of [place] [address] Mailing Machine Assistant: Dean Maddox MD Platelets (Bld) [#/Vol] 404 10*3/uL High 140-400 [facility] Comment on above: Performed By: #### 9 1431, 18119, 866, 899, 496, 6399, 36629 #### [facility] of [place] [address] Mailing Machine Assistant: Dean Maddox MD RBC (Bld) [#/Vol] 4.58 10*6/uL Normal 3.80-5.10 [facility] Comment on above: Performed By: #### 9 1431, 42453, 866, 899, 496, 6399, 01956 #### [facility] of [place] [address] Mailing Machine Assistant: Dean Maddox MD WBC (Bld) [#/Vol] 11.6 10*3/uL High 3.8-10.8 [facility] Comment on above: Performed By: #### 9 1431, 88253, 866, 899, 496, 6399, 05195 #### [facility] [address] [facility], [address] [place] [address] Mailing Machine Assistant: Dean Maddox MD CBC Auto Differentialon 07-23 Basophils (Bld) [#/Vol] 93 10*3/uL [facility] Basophils/100 WBC (Bld) 0.8 % [facility] Eosinophils (Bld) [#/Vol] 220 10*3/uL [facility] Eosinophils/100 WBC (Bld) 1.9 % [facility] Erythrocyte distribution width (RBC) [Ratio] 12.8 % 11.0 - 15.0 % [facility] Hematocrit (Bld) [Volume fraction] 41.1 % 35.0 - 45.0 % [facility] Hemoglobin (Bld) [Mass/Vol] 13.8 g/dL 11.7 - 15.5 g/dL [facility] Interpretation and review of laboratory results Abnormal [facility] Lymphocytes (Bld) [#/Vol] 2401 10*3/uL [facility] Lymphocytes/100 WBC (Bld) 20.7 % [facility] MCH (RBC) [Entitic mass] 30.1 pg 27.0 - 33.0 pg [facility] MCHC (RBC) [Mass/Vol] 33.6 g/dL 32.0 - 36.0 g/dL [facility] Comment on above: For adults, a slight decrease in the calculated MCHC value (in the range of 30 to 32 g/dL) is most likely not clinically significant; however, it should be interpreted with caution in correlation with other red cell parameters and the patient's clinical condition. MCV (RBC) [Entitic vol] 89.7 fL 80.0 - 100.0 fL [facility] Monocytes (Bld) [#/Vol] 661 10*3/uL [facility] Monocytes/100 WBC (Bld) 5.7 % [facility] Neutrophils (Bld) [#/Vol] 8224 10*3/uL High [facility] Neutrophils/100 WBC (Bld) 70.9 % [facility] Platelet mean volume (Bld) [Entitic vol] 8.9 fL 7.5 - 12.5 fL [facility] Platelets (Bld) [#/Vol] 404 10*3/uL High [facility] RBC (Bld) [#/Vol] 4.58 10*6/uL [facility] WBC (Bld) [#/Vol] 11.6 10*3/uL [facility] COMPREHENSIVE METABOLIC PANE L W/ANION GAPon 08-03-2024 Albumin [Mass/Vol] 4.1 g/dL Normal 3.6-5.1 [facility] Comment on above: Performed By: #### 9 1431, 49278, 866, 899, 496, 6399, 71475 #### [facility] of [address], [address] [place] [address] Mailing Machine Assistant: Dean Maddox MD ALP [Catalytic activity/Vol] 98 U/L Normal 31-125 [facility] Comment on above: Performed By: #### 9 1431, 60004, 866, 899, 496, 6399, 17521 #### [facility] of [address], [address] [place] [address] Mailing Machine Assistant: Dean Maddox MD ALT [Catalytic activity/Vol] 11 U/L Normal 6-29 [facility] Comment on above: Performed By: #### 9 1431, 11506, 866, 899, 496, 6399, 88809 #### [facility] of [place] [address] Mailing Machine Assistant: Dean Maddox MD AST [Catalytic activity/Vol] 10 U/L Normal 10-35 [facility] Comment on above: Performed By: #### 9 1431, 61580, 866, 899, 496, 6399, 74579 #### [facility] of [address], [address] [place] [address] Mailing Machine Assistant: Dean Maddox MD Bilirubin [Mass/Vol] 0.4 mg/dL Normal 0.2-1.2 [facility] Comment on above: Performed By: #### 9 1431, 21418, 866, 899, 496, 6399, 96799 #### [facility] of [address], [address] [place] [address] Mailing Machine Assistant: Daen Maddox MD Calcium [Mass/Vol] 9.6 mg/dL Normal 8.6-10.2 [facility] Comment on above: Performed By: #### 9 1431, 85103, 866, 899, 496, 6399, 42755 #### [facility] [address], [address] [place] [address] Mailing Machine Assistant: Dean Maddox MD Chloride [Moles/Vol] 105 mmol/L Normal 98-110 [facility] Comment on above: Performed By: #### 9 1431, 92516, 866, 899, 496, 6399, 02323 #### [facility] [place] [address] Mailing Machine Assistant: Dean Maddox MD CO2 [Moles/Vol] 20 mmol/L Normal 20-32 [facility] Comment on above: Performed By: #### 9 1431, 46477, 866, 899, 496, 6399, 66930 #### [facility] [place] [address] Mailing Machine Assistant: Dean Maddox MD Creatinine [Mass/Vol] 1.30 mg/dL High 0.50-0.[address] [facility] Comment on above: Performed By: #### 9 1431, 45785, 866, 899, 496, 6399, 98035 #### [facility] [place] [address] Mailing Machine Assistant: Dean Maddox MD ELECTROLYTE BALANCE 11 mmol/L (calc) Normal 7-17 [facility] Comment on above: Performed By: #### 9 1431, 75373, 866, 899, 496, 6399, 78336 #### [facility] [place] [address] Mailing Machine Assistant: Dean Maddox MD GFR/1.73 sq M.predicted among non-blacks MDRD (S/P/Bld) [Vol rate/Area] 51 mL/min/{1.73_m2} Low > OR = 60 [facility] Comment on above: Performed By: #### 9 1431, 00451, 866, 899, 496, 6399, 25425 #### [facility] [place] [address] Mailing Machine Assistant: Dean Maddox MD Glucose [Mass/Vol] 214 mg/dL High 65-99 [facility] Comment on above: Result Comment: Fasting reference interval For someone without known diabetes, a glucose value >125 mg/dL indicates that they may have diabetes and this should be confirmed with a follow-up test. Performed By: #### 9 1431, 66709, 866, 899, 496, 6399, 87876 #### [facility] [place] [address] Mailing Machine Assistant: Dean Maddox MD Potassium [Moles/Vol] 4.9 mmol/L Normal 3.5-5.[address] [facility] Comment on above: Performed By: #### 9 1431, 18624, 866, 899, 496, 6399, 15632 #### [facility] [place] [address] Mailing Machine Assistant: Dean Maddox MD Protein [Mass/Vol] 7.0 g/dL Normal 6.1-8.1 [facility] Comment on above: Performed By: #### 9 1431, 76313, 866, 899, 496, 6399, 97274 #### [facility] [place] [address] Mailing Machine Assistant: Dean Maddox MD Sodium [Moles/Vol] 136 mmol/L Normal 135-146 [facility] Comment on above: Performed By: #### 9 1431, 83899, 866, 899, 496, 6399, 12027 #### [facility] [place] [address] Mailing Machine Assistant: Dean Maddox MD Urea nitrogen [Mass/Vol] 30 mg/dL High 7-25 [facility] Comment on above: Performed By: #### 9 1471, 20374, 866, 896, 512, 7794, 64612 #### [facility] [address] [facility], [address] [place] [address] Mailing Machine Assistant: Dean Maddox MD Comprehensive metabolic 2000 panelon 08-03-2024 Albumin [Mass/Vol] 4.1 g/dL 3.6 - 5.1 g/dL [facility] ALP [Catalytic activity/Vol] 98 U/L 31 - 125 U/L [facility] ALT [Catalytic activity/Vol] 11 U/L 6 - 29 U/L [facility] Anion gap [Moles/Vol] 11 mmol/L [facility] AST [Catalytic activity/Vol] 10 U/L 10 - 35 U/L [facility] Bilirubin [Mass/Vol] 0.4 mg/dL 0.2 - 1 .2 mg/dL [facility] Calcium [Mass/Vol] 9.6 mg/dL 8.6 - 10. 2 mg/dL [facility] Chloride [Moles/Vol] 105 mmol/L 98 - 11 0 mmol/L [facility] CO2 [Moles/Vol] 20 mmol/L 20 - 32 mmol/L [facility] Creatinine [Mass/Vol] 1.3 mg/dL High 0.50 - 0.99 mg/dL [facility] GFR/1.73 sq M.predicted among non-blacks MDRD (S/P/Bld) [Vol rate/Area] 51 mL/min/{1.73_m2} Low > OR = 60 mL/min/1.73 m2 [facility] Glucose [Mass/Vol] 214 mg/dL High 65 - 99 mg/dL [facility] Comment on above: Fasting reference interval For someone without known diabetes, a glucose value >125 mg/dL indicates that they may have diabetes and this should be confirmed with a follow-up test. Potassium [Moles/Vol] 4.9 mmol/L 3.5 - 5.3 mmol/L [facility] Protein [Mass/Vol] 7 g/dL 6.1 - 8.1 g/dL [facility] Sodium [Moles/Vol] 136 mmol/L 135 - 146 mmol/L [facility] Urea nitrogen [Mass/Vol] 30 mg/dL High 7 - 25 mg/dL [facility] HEMOGLOBIN A1con 08-03-2024 HEMOGLOBIN A1c 10.6 [...] for children. Performed By: #### 9 1431, 41835, 866, 899, 496, 6399, 81197 #### [facility] [address] [place] [address], [address] [place] [address] Mailing Machine Assistant: Dean Maddox MD HEPATITIS C AB W/REFL TO HCV RNA, QN, PCRon 08-03-2024 HEPATITIS C ANTIBODY Normal [facility] Comment on above: Performed By: #### 9 1431, 92208, 866, 899, 496, 6399, 14262 #### [facility] [address] [place], [place] [address] , [address] [place] [address] Mailing Machine Assistant: Dean Maddox MD HIV 1/2 ANTIGEN/ANTIBODY,FOU RTH GENERATION W/RFLon 08-03-2024 HIV AG/AB, 4TH GEN Normal [facility] Comment on above: Performed By: #### 9 1431, 83804, 866, 899, 496, 6399, 78791 #### [facility] [address], [address] [place] [address] Mailing Machine Assistant: Dean Maddox MD HIV Antibody (HIV1/HIV2)on 0 08-03-2024 HIV 1+2 Ab+HIV1 p24 Ag IA Ql Non-Reactive NON-REACTIV E [facility] Comment on above: HIV-1 antigen and [...] purpose. For additional information please refer to http://openPeople.Vedicis/faq/BMA504 (This link is being provided for informational/ educational purposes only.) The performance of this assay has not been clinically validated in patients less than 2 years old. HbA1c (Bld) [Mass fraction]o n 08-03-2024 Interpretation and review of laboratory results Abnormal [facility] Hemoglobin A1con 08-03-2024 HbA1c (Bld) [Mass fraction] 10.6 % High [facility] Comment on above: For someone without known [...] HCV Ab IA Ql Non-Reactive NON-REACTIV E [facility] Comment on above: HCV antibody was non-reactive. There is no laboratory evidence of HCV infection. In most cases, no further action is required. However, if recent HCV exposure is suspected, a test for HCV RNA (test code 17676) is suggested. For additional information please refer to http://education.IDbyME.[employer] Technologies/faq/ABP23u5 (This link is being provided for informational/ educational purposes only.) LIPID PANEL WITH REFLEX TO D IRECT LDLon 08-03-2024 Cholesterol [Mass/Vol] 232 mg/dL High <200 [facility] Comment on above: Performed By: #### 9 1431, 24856, 866, 899, 496, 6399, 24002 #### [facility] [place] [address] [place] [address] Mailing Machine Assistant: Dean Maddox MD Cholesterol in HDL [Mass/Vol] 58 mg/dL Normal > OR = 50 [facility] Comment on above: Performed By: #### 9 1431, 41969, 866, 899, 496, 6399, 76426 #### [facility] [place] [address] Mailing Machine Assistant: Dean Maddox MD Cholesterol in LDL [Mass/Vol] [...] equation in the estimation of LDL-C. Antoine GREGG et al. CHOLO. 2013;310(19): 1325-2171 (http://education.Hunch.[employer]/faq/NZD475) Performed By: #### 9 1431, 31075, 866, 899, 496, 6399, 18871 #### [facility] [place] [address] Mailing Machine Assistant: Dean Maddox MD Cholesterol.total/Cho lesterol in HDL [Mass ratio] 4.0 {ratio} Normal <5.0 [facility] Comment on above: Performed By: #### 9 1431, 77310, 866, 899, 496, 6399, 38233 #### [facility] [place] [address] Mailing Machine Assistant: Dean Maddox MD NON HDL CHOLESTEROL 174 mg/dL (calc) High <130 [facility] Comment on above: Result Comment: For patients with diabetes plus 1 major ASCVD risk factor, treating to a non-HDL-C goal of <100 mg/dL (LDL-C of <70 mg/dL) is considered a therapeutic option. Performed By: #### 9 1431, 76492, 866, 899, 496, 6399, 52112 #### [facility] [address], [address] [place] [address] Mailing Machine Assistant: Dean Maddox MD Triglyceride [Mass/Vol] 167 mg/dL High <150 [facility] Comment on above: Performed By: #### 9 1431, 12244, 866, 899, 496, 6399, 98221 #### [facility] [address], [address] [place] [address] Mailing Machine Assistant: Dean Maddox MD Lipid 1996 panelon 5 Cholesterol [Mass/Vol] 232 mg/dL High [facility] - 200 mg/dL [facility] Cholesterol in HDL [Mass/Vol] 58 mg/dL > OR = 50 [facility] Cholesterol in LDL [Mass/Vol] 144 mg/dL High mg/dL (calc) [facility] Comment on above: Reference range: <10 [...] LDL-C. Antoine SS et al. CHOLO. 2013;310(19): 7697-6933 (http://education.MetaModix/faq/LPZ189) Cholesterol non HDL [Mass/Vol] 174 mg/dL High [facility] Comment on above: For patients with di abetes plus 1 major ASCVD risk factor, treating to a non-HDL-C goal of <100 mg/dL (LDL-C of <70 mg/dL) is considered a therapeutic option. Cholesterol.total/Cho lesterol in HDL [Mass ratio] 4 {ratio} [facility] Triglyceride [Mass/Vol] 167 mg/dL High [facility] - 150 mg/dL [facility] No Panel Informationon 08-03 [facility] Interpretation and review of laboratory results Abnormal [facility] T4, FREEon 08-03-2024 Free T4 [Mass/Vol] 0.9 ng/dL Normal 0.8-1.8 [employer] Comment on above: Performed By: #### 9 1431, 17898, 866, 899, 496, 6399, 95150 #### [facility] [address], [address] [place] [address] Mailing Machine Assistant: Dean Maddox MD T4, Freeon 08-03-2024 Free T4 [Mass/Vol] 0.9 ng/dL 0.8 - 1.8 ng/dL [facility] TSHon 08-03-2024 TSH Qn 3.54 m[IU]/L Normal [facility] Comment on above: Result Comment: Refe rence Range > or = 20 Years 0.40-4.50 Ranges First trimester 0.26-2.66 Second trimester 0.55-2.73 Third trimester 0.43-2.91 Performed By: #### 9 1431, 93602, 866, 899, 496, 4087, 30799 #### [facility] [address], [address] [place] [address] Mailing Machine Assistant: Dean Maddox MD TSH DL <= 0.005 mIU/L Qnon 0 08-03-2024 TSH Qn 3.54 m[IU]/L mIU/L [facility] Comment on above: Reference Range > or = 20 Years 0.40-4.50 Ranges First trimester 0.26-2.66 Second trimester 0.55-2.73 Third trimester 0.43-2.91 XR KNEES BILATERAL 2 VIEWS E ACH (STANDARD)on 08-02-2024 XR KNEES BILATERAL 2 VIEWS EACH (STANDARD) Normal [facility] Comment on above: Order Comment: Injur y/Trauma or Illness?:Illness/OtherHow long have you had these symptoms (acute/chronic)?:UnknownReason for exam?:Bilateral knee painHistory of cancer?:uSurgeries, chemotherapy, or radiation?:pacemakerType of Exam?:UnknownAdditional signs and symptoms?:none ED Prov Noteon 05-23-2024 ED Prov Note Normal [facility] XR HAND LEFT 3+ VIEWS (STAND ILIA)on 05-23-2024 XR HAND LEFT 3+ VIEWS (STANDARD) Normal [facility] Comment on above: Order Comment: Injur y/Trauma or Illness?:Illness/OtherHow long have you had these symptoms (acute/chronic)?:AcuteReason for exam?:Lt hand pain with swellingHistory of cancer?:uSurgeries, chemotherapy, or radiation?:pacemakerType of Exam?:InitialAdditional signs and symptoms?:Lt hand pain with swelling CBCon 04-29-2024 AUTO NRBC 0.0 % Normal [facility] Comment on above: Performed By: #### 4 [id number] ####[facility] [address] [place], [place] [address] Abbi Choudhary M.D. [id number] AUTO NRBC ABS COUNT 0.00 K/mcL Normal 0.00-0.00 [facility] Comment on above: Performed By: #### 4 [id number] ####[facility] [address] [place], [place] [address] Abbi Choudhary M.D. [id number] Erythrocyte distribution width (RBC) [Ratio] 13.4 % Normal 11.6-14.8 [facility] Comment on above: Performed By: #### 4 [id number] ####[facility] [address] [place], [place] [address] Abbi Choudhary M.D. [id number] Hematocrit (Bld) [Volume fraction] 29.3 % Low 36.0-46.0 [facility] Comment on above: Performed By: #### 4 [id number] ####[facility] [address] [place], [place] [address] Abbi Choudhary M.D. [id number] Hemoglobin (Bld) [Mass/Vol] 9.6 g/dL Low 12.0-16.0 [facility] Comment on above: Performed By: #### 4 [id number] ####[facility] [address] [place], [place] [address] Abbi Choudhary M.D. [id number] MCH (RBC) [Entitic mass] 31.0 pg Normal 26.0-34.0 [facility] Comment on above: Performed By: #### 4 [id number] ####[facility] [address] [place], [place] [address] Abbi Choudhary M.D. [id number] MCV (RBC) [Entitic vol] 94.5 fL Normal 80.0-100.0 [facility] Comment on above: Performed By: #### 4 [id number] ####[facility] [address] [place], [place] [address] Abbi Choudhary M.D. [id number] MEAN CORPUSCULAR HEMOGLOBIN CONC 32.8 g/dL Normal 31.0-37.0 [facility] Comment on above: Performed By: #### 4 [id number] ####[facility] [address] [place], [place] [address] Abbi Choudhary M.D. [id number] Platelet mean volume (Bld) [Entitic vol] 9.7 fL Normal 9.4-12.4 [facility] Comment on above: Performed By: #### 4 [id number] ####[facility] [address] [place], [place] [address] Abbi Choudhary M.D. [id number] Platelets (Bld) [#/Vol] 289 10*3/uL Normal 150-400 [facility] Comment on above: Performed By: #### 4 [id number] ####[facility] [address] [place], [place] [address] Abbi Choudhary M.D. [id number] RBC (Bld) [#/Vol] 3.10 10*6/uL Low 4.00-5.20 [facility] Comment on above: Performed By: #### 4 [id number] ####[facility] [address] [place], [place] [address] Abbi Choudhary M.D. [id number] WBC (Bld) [#/Vol] 6.78 10*3/uL Normal 4.50-11.00 [facility] Comment on above: Performed By: #### 4 [id number] ####[facility] [address] [place], [place] [address] Abbi Choudhary M.D. [id number] CBC panel Auto (Bld)on 04-29 Erythrocyte distribution width (RBC) [Entitic vol] 13.4 % 11.6 - 14.8 % [facility] Hematocrit (Bld) [Volume fraction] 29.3 % Low 36.0 - 46.0 % [facility] Hemoglobin (Bld) [Mass/Vol] 9.6 g/dL Low 12.0 - 16.0 g/dL [facility] Interpretation and review of laboratory results Abnormal [facility] MCH (RBC) [Entitic mass] 31 pg 26.0 - 34.0 pg [facility] MCHC (RBC) [Mass/Vol] 32.8 g/dL 31.0 - 37.0 g/dL [facility] MCV (RBC) [Entitic vol] 94.5 fL 80.0 - 100.0 fL [facility] Nucleated RBC (Bld) [#/Vol] 0 10*3/uL [facility] Nucleated RBC/100 WBC (Bld) [Ratio] 0 % [facility] Platelet mean volume (Bld) [Entitic vol] 9.7 fL 9.4 - 12.4 fL [facility] Platelets (Bld) [#/Vol] 289 10*3/uL [facility] RBC (Bld) [#/Vol] 3.1 10*6/uL Low [facility] alth WBC (Bld) [#/Vol] 6.78 10*3/uL [facility] Disch Summon 04-29-2024 Disch Summ Normal [facility] Glucose (Bld) [Mass/Vol]on 1 06-30-2023 Glucose [Mass/Vol] 240 mg/dL High 65 - 99 mg/dL [facility] Interpretation and review of laboratory results Abnormal [facility] Glucose [Mass/Vol] 340 mg/dL High 65 - 99 mg/dL [facility] Interpretation and review of laboratory results Abnormal [facility] POC GLUCOSE - [facility] 024 Glucose [Mass/Vol] 240 mg/dL High 65-99 [facility] Comment on above: Performed By: #### 4 6932 ####[facility] [address] [place], [place] [address] Abbi Choudhary M.D. [id number] Glucose [Mass/Vol] 340 mg/dL High 65-99 [facility] Comment on above: Performed By: #### 4 6932 ####[facility] [address] [place], [place] [address] Abbi Choudhary M.D. [id number] RENAL FUNCTION PANELon 04-29 Albumin [Mass/Vol] 3.2 g/dL Normal 3.2-5.2 [facility] Comment on above: Order Comment: [facility] has implemented the eGFR calculation approach that does not have a coefficient for race that conforms to the NKF-ASN Task Force Recommendations. Performed By: #### 4 6449 ####[facility] [address] [place], [place] [address] Abbi Choudhary M.D. [id number] Anion gap [Moles/Vol] 15 mmol/L Normal 10-20 [facility] Comment on above: Order Comment: [facility] has implemented the eGFR calculation approach that does not have a coefficient for race that conforms to the NKF-ASN Task Force Recommendations. Performed By: #### 4 6449 ####[facility] [address] [place], [place] [address] Abbi Choudhary M.D. [id number] Calcium [Mass/Vol] 8.5 mg/dL Normal 8.4-10.2 [facility] Comment on above: Order Comment: [facility] has implemented the eGFR calculation approach that does not have a coefficient for race that conforms to the NKF-ASN Task Force Recommendations. Performed By: #### 4 6449 ####[facility] [address] [place], [place] [address] Abbi Choudhary M.D. [id number] Chloride [Moles/Vol] 104 mmol/L Normal 98-108 [facility] Comment on above: Order Comment: [facility] has implemented the eGFR calculation approach that does not have a coefficient for race that conforms to the NKF-ASN Task Force Recommendations. Performed By: #### 4 6449 ####[facility] [address] [place], [place] [address] Abbi Choudhary M.D. [id number] Creatinine [Mass/Vol] 1.72 mg/dL High 0.40-1.10 [facility] Comment on above: Order Comment: [facility] has implemented the eGFR calculation approach that does not have a coefficient for race that conforms to the NKF-ASN Task Force Recommendations. Performed By: #### 4 6449 ####[facility] [address] [place], [place] [address] Abbi Choudhary M.D. [id number] EGFR 37 mL/min/1.73 m2 Low >=60 [facility] Comment on above: Order Comment: [facility] has implemented the eGFR calculation approach that does not have a coefficient for race that conforms to the NKF-ASN Task Force Recommendations. Result Comment: Lorie mated GFR was calculated using the 2020 CKD-EPI creatinine equation. Performed By: #### 4 6449 ####[facility] [address] [place], [place] [address] Abbi Choudhary M.D. [id number] Glucose [Mass/Vol] 358 mg/dL High 65-99 [facility] Comment on above: Order Comment: [facility] has implemented the eGFR calculation approach that does not have a coefficient for race that conforms to the NKF-ASN Task Force Recommendations. Performed By: #### 4 6449 ####[facility] [address] [place], [place] [address] Abbi Choudhary M.D. [id number] HCO3 (Bld) [Moles/Vol] 23 mmol/L Normal 21-32 [facility] Comment on above: Order Comment: [facility] has implemented the eGFR calculation approach that does not have a coefficient for race that conforms to the NKF-ASN Task Force Recommendations. Performed By: #### 4 6449 ####[facility] [address] [place], [place] [address] Abbi Choudhary M.D. [id number] Phosphate [Mass/Vol] 4.0 mg/dL Normal 2.7-4.5 [facility] Comment on above: Order Comment: [facility] has implemented the eGFR calculation approach that does not have a coefficient for race that conforms to the NKF-ASN Task Force Recommendations. Performed By: #### 4 6449 ####[facility] [address] [place], [place] [address] Abbi Choudhary M.D. [id number] Potassium [Moles/Vol] 4.5 mmol/L Normal 3.5-5.1 [facility] Comment on above: Order Comment: [facility] has implemented the eGFR calculation approach that does not have a coefficient for race that conforms to the NKF-ASN Task Force Recommendations. Performed By: #### 4 6449 ####[facility] [address] [place], [place] [address] Abbi Choudhary M.D. [id number] Sodium [Moles/Vol] 137 mmol/L Normal 135-145 [facility] Comment on above: Order Comment: [facility] has implemented the eGFR calculation approach that does not have a coefficient for race that conforms to the NKF-ASN Task Force Recommendations. Performed By: #### 4 6449 ####[facility] [address] [place], [place] [address] Abbi Choudhary M.D. [id number] Urea nitrogen [Mass/Vol] 30 mg/dL High 8-25 [facility] Comment on above: Order Comment: [facility] has implemented the eGFR calculation approach that does not have a coefficient for race that conforms to the NKF-ASN Task Force Recommendations. Performed By: #### 4 6449 ####[facility] [address] [place], [place] [address] Abbi Choudhary M.D. [id number] Urea nitrogen/Creatinine [Mass ratio] 17.4 mg/mg Normal 10.0-20.0 [facility] Comment on above: Order Comment: [facility] has implemented the eGFR calculation approach that does not have a coefficient for race that conforms to the NKF-ASN Task Force Recommendations. Performed By: #### 4 6449 ####[facility] [address] [place], [place] [address] Abbi Choudhary M.D. [id number] Renal function 2000 [facility] 04-29-2024 Albumin [Mass/Vol] 3.2 g/dL 3.2 - 5.2 g/dL [facility] Anion gap [Moles/Vol] 15 mmol/L 10 - 2 0 mmol/L [facility] Calcium [Mass/Vol] 8.5 mg/dL 8.4 - 10. 2 mg/dL [facility] Chloride [Moles/Vol] 104 mmol/L 98 - 10 8 mmol/L [facility] Creatinine [Mass/Vol] 1.72 mg/dL High 0.40 - 1.10 mg/dL [facility] GFR/1.73 sq M.predicted CKD-EPI (S/P/Bld) [Vol rate/Area] 37 Low - PINF [facility] Comment on above: Estimated GFR was ca lculated using the 2020 CKD-EPI creatinine equation. Glucose [Mass/Vol] 358 mg/dL High 65 - 99 mg/dL [facility] HCO3 [Moles/Vol] 23 mmol/L 21 - 32 mmol/L [facility] Interpretation and review of laboratory results Abnormal [facility] Phosphate [Mass/Vol] 4 mg/dL 2.7 - 4 .5 mg/dL [facility] Potassium [Moles/Vol] 4.5 mmol/L 3.5 - 5.1 mmol/L [facility] Sodium [Moles/Vol] 137 mmol/L 135 - 145 mmol/L [facility] Urea nitrogen [Mass/Vol] 30 mg/dL High 8 - 25 mg/dL [facility] Urea nitrogen/Creatinine [Mass ratio] 17.4 mg/mg 10.0 - 20.0 [facility] has implemented the eGFR calculation approach that does not have a coefficient for race that conforms to the NKF-ASN Task Force Recommendations. [facility] CBCon 04-28-2024 AUTO NRBC 0.0 % Normal [facility] Comment on above: Performed By: #### 4 [id number] ####[facility] [address] [place], [place] [address] Abbi Choudhary M.D. [id number] AUTO NRBC ABS COUNT 0.00 K/mcL Normal 0.00-0.00 [facility] Comment on above: Performed By: #### 4 5218 ####[facility] [address] [place], [place] [address] Abbi Choudhary M.D. [id number] Erythrocyte distribution width (RBC) [Ratio] 13.2 % Normal 11.6-14.8 [facility] Comment on above: Performed By: #### 4 5218 ####[facility] [address] [place], [place] [address] Abbi Choudhary M.D. [id number] Hematocrit (Bld) [Volume fraction] 27.7 % Low 36.0-46.0 [facility] Comment on above: Performed By: #### 4 5218 ####[facility] [address] [place], [place] [address] Abbi Choudhary M.D. [id number] Hemoglobin (Bld) [Mass/Vol] 9.4 g/dL Low 12.0-16.0 [facility] Comment on above: Performed By: #### 4 5218 ####[facility] [address] [place], [place] [address] Abbi Choudhary M.D. [id number] MCH (RBC) [Entitic mass] 31.9 pg Normal 26.0-34.0 [facility] Comment on above: Performed By: #### 4 5218 ####[facility] [address] [place], [place] [address] Abbi Choudhary M.D. [id number] MCV (RBC) [Entitic vol] 93.9 fL Normal 80.0-100.0 [facility] Comment on above: Performed By: #### 4 5218 ####[facility] [address] [place], [place] [address] Abbi Choudhary M.D. [id number] MEAN CORPUSCULAR HEMOGLOBIN CONC 33.9 g/dL Normal 31.0-37.0 [facility] Comment on above: Performed By: #### 4 5218 ####[facility] [address] [place], [place] [address] Abbi Choudhary M.D. [id number] Platelet mean volume (Bld) [Entitic vol] 9.7 fL Normal 9.4-12.4 [facility] Comment on above: Performed By: #### 4 5218 ####[facility] [address] [place], [place] [address] Abbi Choudhary M.D. [id number] Platelets (Bld) [#/Vol] 277 10*3/uL Normal 150-400 [facility] Comment on above: Performed By: #### 4 5218 ####[facility] [address] [place], [place] [address] Abbi Choudhary M.D. [id number] RBC (Bld) [#/Vol] 2.95 10*6/uL Low 4.00-5.20 [facility] Comment on above: Performed By: #### 4 5218 ####[facility] [address] [place], [place] [address] Abbi Choudhary M.D. [id number] WBC (Bld) [#/Vol] 8.19 10*3/uL Normal 4.50-11.00 [facility] Comment on above: Performed By: #### 4 5218 ####[facility] [address] [place] [address] Abbi Choudhary M.D. [id number] CBC panel Auto (Bld)on 04-28 Erythrocyte distribution width (RBC) [Entitic vol] 13.2 % 11.6 - 14.8 % [facility] Hematocrit (Bld) [Volume fraction] 27.7 % Low 36.0 - 46.0 % [facility] Hemoglobin (Bld) [Mass/Vol] 9.4 g/dL Low 12.0 - 16.0 g/dL [facility] Interpretation and review of laboratory results Abnormal [facility] MCH (RBC) [Entitic mass] 31.9 pg 26.0 - 34.0 pg [facility] MCHC (RBC) [Mass/Vol] 33.9 g/dL 31.0 - 37.0 g/dL [facility] MCV (RBC) [Entitic vol] 93.9 fL 80.0 - 100.0 fL [facility] Nucleated RBC (Bld) [#/Vol] 0 10*3/uL [facility] Nucleated RBC/100 WBC (Bld) [Ratio] 0 % [facility] Platelet mean volume (Bld) [Entitic vol] 9.7 fL 9.4 - 12.4 fL [facility] Platelets (Bld) [#/Vol] 277 10*3/uL [facility] RBC (Bld) [#/Vol] 2.95 10*6/uL Low [facility] WBC (Bld) [#/Vol] 8.19 10*3/uL [facility] Glucose (Bld) [Mass/Vol]on 06-29-2023 Glucose [Mass/Vol] 236 mg/dL High 65 - 99 mg/dL [facility] Interpretation and review of laboratory results Abnormal [facility] Glucose [Mass/Vol] 282 mg/dL High 65 - 99 mg/dL [facility] Interpretation and review of laboratory results Abnormal [facility] Glucose [Mass/Vol] 267 mg/dL High 65 - 99 mg/dL [facility] Interpretation and review of laboratory results Abnormal [facility] Glucose [Mass/Vol] 315 mg/dL High 65 - 99 mg/dL [facility] Interpretation and review of laboratory results Abnormal [facility] POC GLUCOSE - RALSon 024 Glucose [Mass/Vol] 236 mg/dL High [address] [place] [address] Comment on above: Performed By: #### 4 6932 ####[facility] [address] [place], [place] [address] Abbi Choudhary M.D. [id number] Glucose [Mass/Vol] 282 mg/dL [address] Comment on above: Performed By: #### 4 6932 ####[facility] [address] [place], [place] [address] Abbi Choudhary M.D. [id number] Glucose [Mass/Vol] 267 mg/dL [address] Comment on above: Performed By: #### 4 6932 ####[facility] [address] [place], [place] [address] Abbi Choudhary M.D. [id number] Glucose [Mass/Vol] 315 mg/dL [address] Comment on above: Performed By: #### 4 6932 ####[facility] [address] [place], [place] [address] Abbi Choudhary M.D. [id number] RENAL FUNCTION PANEL 04-28 Albumin [Mass/Vol] 3.1 g/dL Low 3.2-5.2 [facility] Comment on above: Order Comment: [facility] has implemented the eGFR calculation approach that does not have a coefficient for race that conforms to the NKF-ASN Task Force Recommendations. Performed By: #### 4 6449 ####[facility] [address] [place], [place] [address] Abbi Choudhary M.D. [id number] Anion gap [Moles/Vol] 15 mmol/L Normal - [facility] Comment on above: Order Comment: [facility] has implemented the eGFR calculation approach that does not have a coefficient for race that conforms to the NKF-ASN Task Force Recommendations. Performed By: #### 4 6449 ####[facility] [address] [place], [place] [address] Abbi Choudhary M.D. [id number] Calcium [Mass/Vol] 8.7 mg/dL Normal 8.4-10.2 [facility] Comment on above: Order Comment: [facility] has implemented the eGFR calculation approach that does not have a coefficient for race that conforms to the NKF-ASN Task Force Recommendations. Performed By: #### 4 6449 ####[facility] [address] [place], [place] [address] Abbi Choudhary M.D. [id number] Chloride [Moles/Vol] 102 mmol/L Normal 98-108 [facility] Comment on above: Order Comment: [facility] has implemented the eGFR calculation approach that does not have a coefficient for race that conforms to the NKF-ASN Task Force Recommendations. Performed By: #### 4 6449 ####[facility] [address] [place], [place] [address] Abbi Choudhary M.D. [id number] Creatinine [Mass/Vol] 1.68 mg/dL High 0.40-1.10 [facility] Comment on above: Order Comment: [facility] has implemented the eGFR calculation approach that does not have a coefficient for race that conforms to the NKF-ASN Task Force Recommendations. Performed By: #### 4 6449 ####[facility] [address] [place], [place] [address] Abbi Choudhary M.D. [id number] EGFR 38 mL/min/1.73 m2 Low >=60 [facility] Comment on above: Order Comment: [facility] has implemented the eGFR calculation approach that does not have a coefficient for race that conforms to the NKF-ASN Task Force Recommendations. Result Comment: Lorie mated GFR was calculated using the 2020 CKD-EPI creatinine equation. Performed By: #### 4 6449 ####[facility] [address] [place], [place] [address] Abbi Choudhary M.D. [id number] Glucose [Mass/Vol] 408 mg/dL Off scale high 65-99 [facility] Comment on above: Order Comment: [facility] has implemented the eGFR calculation approach that does not have a coefficient for race that conforms to the NKF-ASN Task Force Recommendations. Performed By: #### 4 6449 ####[facility] [address] [place], [place] [address] Abbi Choudhary M.D. [id number] HCO3 (Bld) [Moles/Vol] 24 mmol/L Normal 21-32 [facility] Comment on above: Order Comment: [facility] has implemented the eGFR calculation approach that does not have a coefficient for race that conforms to the NKF-ASN Task Force Recommendations. Performed By: #### 4 6449 ####[facility] [address] [place], [place] [address] Abbi Choudhary M.D. [id number] Phosphate [Mass/Vol] 3.8 mg/dL Normal 2.7-4.5 [facility] Comment on above: Order Comment: [facility] has implemented the eGFR calculation approach that does not have a coefficient for race that conforms to the NKF-ASN Task Force Recommendations. Performed By: #### 4 [id number] ####[facility] [address] [place], [place] [address] Abbi Choudhary M.D. [id number] Potassium [Moles/Vol] 4.5 mmol/L Normal 3.5-5.1 [facility] Comment on above: Order Comment: [facility] has implemented the eGFR calculation approach that does not have a coefficient for race that conforms to the NKF-ASN Task Force Recommendations. Performed By: #### 4 6449 ####[facility] [address] [place], [place] [address] Abbi Choudhary M.D. [id number] Sodium [Moles/Vol] 136 mmol/L Normal 135-145 [facility] Comment on above: Order Comment: [facility] has implemented the eGFR calculation approach that does not have a coefficient for race that conforms to the NKF-ASN Task Force Recommendations. Performed By: #### 4 6449 ####[facility] [address] [place], [place] [address] Abbi Choudhary M.D. [id number] Urea nitrogen [Mass/Vol] 27 mg/dL High 8-25 [facility] Comment on above: Order Comment: [facility] has implemented the eGFR calculation approach that does not have a coefficient for race that conforms to the NKF-ASN Task Force Recommendations. Performed By: #### 4 6449 ####[facility] [address] [place], [place] [address] Abbi Choudhary M.D. [id number] Urea nitrogen/Creatinine [Mass ratio] 16.1 mg/mg Normal 10.0-20.0 [facility] Comment on above: Order Comment: [facility] has implemented the eGFR calculation approach that does not have a coefficient for race that conforms to the NKF-ASN Task Force Recommendations. Performed By: #### 4 [id number] ####[facility] [address] [place], [place] [address] Abbi Choudhary M.D. [id number] Renal function 2000 panelOrd ered By: Navneet Parr on 04-28-2024 Albumin [Mass/Vol] 3.1 g/dL Low 3.2 - 5.2 g/dL [facility] Anion gap [Moles/Vol] 15 mmol/L 10 - 2 0 mmol/L [facility] Calcium [Mass/Vol] 8.7 mg/dL 8.4 - 10. 2 mg/dL [facility] Chloride [Moles/Vol] 102 mmol/L 98 - 10 8 mmol/L [facility] Creatinine [Mass/Vol] 1.68 mg/dL High 0.40 - 1.10 mg/dL [facility] GFR/1.73 sq M.predicted CKD-EPI (S/P/Bld) [Vol rate/Area] 38 Low - PINF [facility] Comment on above: Estimated GFR was ca lculated using the 2020 CKD-EPI creatinine equation. Glucose [Mass/Vol] 408 mg/dL Critically high 65 - 9 9 mg/dL [facility] HCO3 [Moles/Vol] 24 mmol/L 21 - 32 mmol/L [facility] Interpretation and review of laboratory results Abnormal [facility] Phosphate [Mass/Vol] 3.8 mg/dL 2.7 - 4 .5 mg/dL [facility] Potassium [Moles/Vol] 4.5 mmol/L 3.5 - 5.1 mmol/L [facility] Sodium [Moles/Vol] 136 mmol/L 135 - 145 mmol/L [facility] Urea nitrogen [Mass/Vol] 27 mg/dL High 8 - 25 mg/dL [facility] Urea nitrogen/Creatinine [Mass ratio] 16.1 mg/mg 10.0 - 20.0 [facility] has implemented the eGFR calculation approach that does not have a coefficient for race that conforms to the NKF-ASN Task Force Recommendations. [facility] CBCon 04-27-2024 AUTO NRBC 0.0 % Normal [facility] Comment on above: Performed By: #### 4 [id number] ####[facility] [address] [place] [address] Abbi Choudhary M.D. [id number] AUTO NRBC ABS COUNT 0.00 K/mcL Normal 0.00-0.00 [facility] Comment on above: Performed By: #### 4 [id number] ####[facility] [address] [place] [address] Abbi Choudhary M.D. [id number] Erythrocyte distribution width (RBC) [Ratio] 13.0 % Normal 11.6-14.8 [facility] Comment on above: Performed By: #### 4 [id number] ####[facility] [address] [place], [place] [address] Abbi Choudhary M.D. [id number] Hematocrit (Bld) [Volume fraction] 33.0 % Low 36.0-46.0 [facility] Comment on above: Performed By: #### 4 [id number] ####[facility] [address] [place] [address] Abbi Choudhary M.D. [id number] Hemoglobin (Bld) [Mass/Vol] 11.3 g/dL Low 12.0-16.0 [facility] Comment on above: Performed By: #### 4 [id number] ####[facility] [address] [place], [place] [address] Abbi Choudhary M.D. [id number] MCH (RBC) [Entitic mass] 31.1 pg Normal 26.0-34.0 [facility] Comment on above: Performed By: #### 4 [id number] ####[facility] [address] [place], [place] [address] Abbi Choudhary M.D. [id number] MCV (RBC) [Entitic vol] 90.9 fL Normal 80.0-100.0 [facility] Comment on above: Performed By: #### 4 [id number] ####[facility] [address] [place], [place] [address] Abbi Choudhary M.D. [id number] MEAN CORPUSCULAR HEMOGLOBIN CONC 34.2 g/dL Normal 31.0-37.0 [facility] Comment on above: Performed By: #### 4 [id number] ####[facility] [address] [place], [place] [address] Abbi Choudhary M.D. [id number] Platelet mean volume (Bld) [Entitic vol] 9.6 fL Normal 9.4-12.4 [facility] Comment on above: Performed By: #### 4 [id number] ####[facility] [address] [place] [address] Abbi Choudhary M.D. [id number] Platelets (Bld) [#/Vol] 287 10*3/uL Normal 150-400 [facility] Comment on above: Performed By: #### 4 [id number] ####[facility] [address] [place], [place] [address] Abbi Choudhary M.D. [id number] RBC (Bld) [#/Vol] 3.63 10*6/uL Low 4.00-5.20 [facility] Comment on above: Performed By: #### 4 [id number] ####[facility] [address] [place], [place] [address] Abbi Choudhary M.D. [id number] WBC (Bld) [#/Vol] 9.85 10*3/uL Normal 4.50-11.00 [facility] Comment on above: Performed By: #### 4 [id number] ####[facility] [address] [place], [place] [address] Abbi Choudhary M.D. [id number] CBC panel Auto (Bld)on 04-27 Erythrocyte distribution width (RBC) [Entitic vol] 13 % 11.6 - 14.8 % [facility] Hematocrit (Bld) [Volume fraction] 33 % Low 36.0 - 46.0 % [facility] Hemoglobin (Bld) [Mass/Vol] 11.3 g/dL Low 12.0 - 16.0 g/dL [facility] Interpretation and review of laboratory results Abnormal [facility] MCH (RBC) [Entitic mass] 31.1 pg 26.0 - 34.0 pg [facility] MCHC (RBC) [Mass/Vol] 34.2 g/dL 31.0 - 37.0 g/dL [facility] MCV (RBC) [Entitic vol] 90.9 fL 80.0 - 100.0 fL [facility] Nucleated RBC (Bld) [#/Vol] 0 10*3/uL [facility] Nucleated RBC/100 WBC (Bld) [Ratio] 0 % [facility] Platelet mean volume (Bld) [Entitic vol] 9.6 fL 9.4 - 12.4 fL [facility] Platelets (Bld) [#/Vol] 287 10*3/uL [facility] RBC (Bld) [#/Vol] 3.63 10*6/uL Low [facility] WBC (Bld) [#/Vol] 9.85 10*3/uL [facility] eah [facility] CONSULTon 04-27-2024 CONSULT Normal [facility] Glucose (Bld) [Mass/Vol]on 1 06-28-2023 Glucose [Mass/Vol] 241 mg/dL High 65 - 99 mg/dL [facility] Interpretation and review of laboratory results Abnormal [facility] Glucose [Mass/Vol] 191 mg/dL High 65 - 99 mg/dL [facility] Interpretation and review of laboratory results Abnormal [facility] Glucose [Mass/Vol] 184 mg/dL High 65 - 99 mg/dL [facility] Interpretation and review of laboratory results Abnormal [facility] Glucose [Mass/Vol] 315 mg/dL High 65 - 99 mg/dL [facility] Interpretation and review of laboratory results Abnormal [facility] Glucose [Mass/Vol] 355 mg/dL High 65 - 99 mg/dL [facility] Interpretation and review of laboratory results Abnormal [facility] Glucose [Mass/Vol] 336 mg/dL High 65 - 99 mg/dL [facility] Interpretation and review of laboratory results Abnormal [facility] Gold Topon 04-27-2024 Extra Tube Hold for add-ons. [facility] Comment on above: Auto resulted. [facility] POC GLUCOSE - [facility] 024 Glucose [Mass/Vol] 241 mg/dL High [address] [place] [address] Comment on above: Performed By: #### 4 [id number] ####[facility] [address] [place], [place] [address] Abbi Choudhary M.D. [id number] Glucose [Mass/Vol] 191 mg/dL [address] Comment on above: Performed By: #### 4 6932 ####[facility] [address] [place], [place] [address] Abbi Choudhary M.D. [id number] Glucose [Mass/Vol] 184 mg/dL [address] Comment on above: Performed By: #### 4 6932 ####[facility] [address] [place], [place] [address] Abbi Choudhary M.D. [id number] Glucose [Mass/Vol] 315 mg/dL [address] Comment on above: Performed By: #### 4 6932 ####[facility] [address] [place], [place] [address] Abbi Choudhary M.D. [id number] Glucose [Mass/Vol] 355 mg/dL [address] Comment on above: Performed By: #### 4 [id number] ####[facility] [address] [place], [place] [address] Abbi Choudhary M.D. [id number] Glucose [Mass/Vol] 336 mg/dL [address] Comment on above: Performed By: #### 4 [id number] ####[facility] [address] [place], [place] [address] Abbi Choudhary M.D. [id number] RENAL FUNCTION PANELon 04-27 Albumin [Mass/Vol] 3.7 g/dL Normal 3.2-5.2 [facility] Comment on above: Order Comment: [facility] has implemented the eGFR calculation approach that does not have a coefficient for race that conforms to the NKF-ASN Task Force Recommendations. Performed By: #### 4 6449 ####[facility] [address] [place], [place] [address] Abbi Choudhary M.D. [id number] Anion gap [Moles/Vol] 17 mmol/L Normal 10-20 [facility] Comment on above: Order Comment: [facility] has implemented the eGFR calculation approach that does not have a coefficient for race that conforms to the NKF-ASN Task Force Recommendations. Performed By: #### 4 6449 ####[facility] [address] [place], [place] [address] Abbi Choudhary M.D. [id number] Calcium [Mass/Vol] 8.7 mg/dL Normal 8.4-10.2 [facility] Comment on above: Order Comment: [facility] has implemented the eGFR calculation approach that does not have a coefficient for race that conforms to the NKF-ASN Task Force Recommendations. Performed By: #### 4 [id number] ####[facility] [address] [place], [place] [address] Abbi Choudhary M.D. [id number] Chloride [Moles/Vol] 99 mmol/L Normal 98-108 [facility] Comment on above: Order Comment: [facility] has implemented the eGFR calculation approach that does not have a coefficient for race that conforms to the NKF-ASN Task Force Recommendations. Performed By: #### 4 6449 ####[facility] [address] [place], [place] [address] Abbi Choudhary M.D. [id number] Creatinine [Mass/Vol] 1.34 mg/dL High 0.40-1.10 [facility] Comment on above: Order Comment: [facility] has implemented the eGFR calculation approach that does not have a coefficient for race that conforms to the NKF-ASN Task Force Recommendations. Performed By: #### 4 6449 ####[facility] [address] [place], [place] [address] Abbi Choudhary M.D. [id number] EGFR 49 mL/min/1.73 m2 Low >=60 [facility] Comment on above: Order Comment: [facility] has implemented the eGFR calculation approach that does not have a coefficient for race that conforms to the NKF-ASN Task Force Recommendations. Result Comment: Lorie mated GFR was calculated using the 2020 CKD-EPI creatinine equation. Performed By: #### 4 [id number] ####[facility] [address] [place], [place] [address] Abbi Choudhary M.D. [id number] Glucose [Mass/Vol] 361 mg/dL High 65-99 [facility] Comment on above: Order Comment: [facility] has implemented the eGFR calculation approach that does not have a coefficient for race that conforms to the NKF-ASN Task Force Recommendations. Performed By: #### 4 6449 ####[facility] [address] [place], [place] [address] Abbi Choudhary M.D. [id number] HCO3 (Bld) [Moles/Vol] 23 mmol/L Normal 21-32 [facility] Comment on above: Order Comment: [facility] has implemented the eGFR calculation approach that does not have a coefficient for race that conforms to the NKF-ASN Task Force Recommendations. Performed By: #### 4 6449 ####[facility] [address] [place], [place] [address] Abbi Choudhary M.D. [id number] Phosphate [Mass/Vol] 2.4 mg/dL Low 2.7-4.5 [facility] Comment on above: Order Comment: [facility] has implemented the eGFR calculation approach that does not have a coefficient for race that conforms to the NKF-ASN Task Force Recommendations. Performed By: #### 4 6449 ####[facility] [address] [place], [place] [address] Abbi Choudhary M.D. [id number] Potassium [Moles/Vol] 4.3 mmol/L Normal 3.5-5.1 [facility] Comment on above: Order Comment: [facility] has implemented the eGFR calculation approach that does not have a coefficient for race that conforms to the NKF-ASN Task Force Recommendations. Performed By: #### 4 6449 ####[facility] [address] [place], [place] [address] Abbi Choudhary M.D. [id number] Sodium [Moles/Vol] 135 mmol/L Normal 135-145 [facility] Comment on above: Order Comment: [facility] has implemented the eGFR calculation approach that does not have a coefficient for race that conforms to the NKF-ASN Task Force Recommendations. Performed By: #### 4 6449 ####[facility] [address] [place], [place] [address] Abbi Choudhary M.D. [id number] Urea nitrogen [Mass/Vol] 26 mg/dL High 8-25 [facility] Comment on above: Order Comment: [facility] has implemented the eGFR calculation approach that does not have a coefficient for race that conforms to the NKF-ASN Task Force Recommendations. Performed By: #### 4 6449 #### LAB [address] [place], [place] [address] Abbi Choudhary M.D. [id number] Urea nitrogen/Creatinine [Mass ratio] 19.4 mg/mg Normal 10.0-20.0 [facility] Comment on above: Order Comment: [facility] has implemented the eGFR calculation approach that does not have a coefficient for race that conforms to the NKF-ASN Task Force Recommendations. Performed By: #### 4 6449 #### LAB [address] [place], [place] [address] Abbi Choudhary M.D. [id number] [facility] Albumin [Mass/Vol] 3.7 g/dL 3.2 - 5.2 g/dL [facility] Anion gap [Moles/Vol] 17 mmol/L 10 - 2 0 mmol/L [facility] Calcium [Mass/Vol] 8.7 mg/dL 8.4 - 10. 2 mg/dL [facility] Chloride [Moles/Vol] 99 mmol/L 98 - 10 8 mmol/L [facility] Creatinine [Mass/Vol] 1.34 mg/dL High 0.40 - 1.10 mg/dL [facility] GFR/1.73 sq M.predicted CKD-EPI (S/P/Bld) [Vol rate/Area] 49 Low - PINF [facility] Comment on above: Estimated GFR was ca lculated using the 2020 CKD-EPI creatinine equation. Glucose [Mass/Vol] 361 mg/dL High 65 - 99 mg/dL [facility] HCO3 [Moles/Vol] 23 mmol/L 21 - 32 mmol/L [facility] Interpretation and review of laboratory results Abnormal [facility] Phosphate [Mass/Vol] 2.4 mg/dL Low 2.7 - 4 .5 mg/dL [facility] Potassium [Moles/Vol] 4.3 mmol/L 3.5 - 5.1 mmol/L [facility] Sodium [Moles/Vol] 135 mmol/L 135 - 145 mmol/L [facility] Urea nitrogen [Mass/Vol] 26 mg/dL High 8 - 25 mg/dL [facility] Urea nitrogen/Creatinine [Mass ratio] 19.4 mg/mg 10.0 - 20.0 [facility] has implemented the eGFR calculation approach that does not have a coefficient for race that conforms to the NKF-ASN Task Force Recommendations. [facility] BASIC METABOLIC PANELon 12-0 -2023 Anion gap [Moles/Vol] 19 mmol/L Normal 10-20 [facility] Comment on above: Order Comment: [facility] has implemented the eGFR calculation approach that does not have a coefficient for race that conforms to the NKF-ASN Task Force Recommendations. Performed By: #### 4 [id number] ####[facility] [address] [place], [place] [address] Abbi Choudhary M.D. [id number] Calcium [Mass/Vol] 8.9 mg/dL Normal 8.4-10.2 [facility] Comment on above: Order Comment: [facility] has implemented the eGFR calculation approach that does not have a coefficient for race that conforms to the NKF-ASN Task Force Recommendations. Performed By: #### 4 6124 ####[facility] [address] [place], [place] [address] Abbi Choudhary M.D. [id number] Chloride [Moles/Vol] 99 mmol/L Normal 98-108 [facility] Comment on above: Order Comment: [facility] has implemented the eGFR calculation approach that does not have a coefficient for race that conforms to the NKF-ASN Task Force Recommendations. Performed By: #### 4 6124 ####[facility] [address] [place], [place] [address] Abbi Choudhary M.D. [id number] Creatinine [Mass/Vol] 1.66 mg/dL High 0.40-1.10 [facility] Comment on above: Order Comment: [facility] has implemented the eGFR calculation approach that does not have a coefficient for race that conforms to the NKF-ASN Task Force Recommendations. Performed By: #### 4 6124 ####[facility] [address] [place], [place] [address] Abbi Choudhary M.D. [id number] EGFR 38 mL/min/1.73 m2 Low >=60 [facility] Comment on above: Order Comment: [facility] has implemented the eGFR calculation approach that does not have a coefficient for race that conforms to the NKF-ASN Task Force Recommendations. Result Comment: Lorie mated GFR was calculated using the 2020 CKD-EPI creatinine equation. Performed By: #### 4 [id number] ####[facility] [address] [place] [address] Abbi Choudhary M.D. [id number] Glucose [Mass/Vol] 293 mg/dL High 65-99 [facility] Comment on above: Order Comment: [facility] has implemented the eGFR calculation approach that does not have a coefficient for race that conforms to the NKF-ASN Task Force Recommendations. Performed By: #### 4 6124 ####[facility] [address] [place], [place] [address] Abbi Choudhary M.D. [id number] HCO3 (Bld) [Moles/Vol] 24 mmol/L Normal 21-32 [facility] Comment on above: Order Comment: [facility] has implemented the eGFR calculation approach that does not have a coefficient for race that conforms to the NKF-ASN Task Force Recommendations. Performed By: #### 4 6124 ####[facility] [address] [place], [place] [address] Abbi Choudhary M.D. [id number] Potassium [Moles/Vol] 4.3 mmol/L Normal 3.5-5.1 [facility] Comment on above: Order Comment: [facility] has implemented the eGFR calculation approach that does not have a coefficient for race that conforms to the NKF-ASN Task Force Recommendations. Performed By: #### 4 6124 ####[facility] [address] [place], [place] [address] Abbi Choudhary M.D. [id number] Sodium [Moles/Vol] 138 mmol/L Normal 135-145 [facility] Comment on above: Order Comment: [facility] has implemented the eGFR calculation approach that does not have a coefficient for race that conforms to the NKF-ASN Task Force Recommendations. Performed By: #### 4 [id number] ####[facility] [address] [place], [place] [address] Abbi Choudhary M.D. [id number] Urea nitrogen [Mass/Vol] 30 mg/dL High 8-25 [facility] Comment on above: Order Comment: [facility] has implemented the eGFR calculation approach that does not have a coefficient for race that conforms to the NKF-ASN Task Force Recommendations. Performed By: #### 4 [id number] ####[facility] [address] [place], [place] [address] Abbi Choudhary M.D. [id number] Urea nitrogen/Creatinine [Mass ratio] 18.1 mg/mg Normal 10.0-20.0 [facility] Comment on above: Order Comment: [facility] has implemented the eGFR calculation approach that does not have a coefficient for race that conforms to the NKF-ASN Task Force Recommendations. Performed By: #### 4 [id number] ####[facility] [address] [place], [place] [address] Abbi Choudhary M.D. [id number] Basic metabolic 2000 panelon 04-26-2024 Anion gap [Moles/Vol] 19 mmol/L 10 - 2 0 mmol/L [facility] Calcium [Mass/Vol] 8.9 mg/dL 8.4 - 10. 2 mg/dL [facility] Chloride [Moles/Vol] 99 mmol/L 98 - 10 8 mmol/L [facility] Creatinine [Mass/Vol] 1.66 mg/dL High 0.40 - 1.10 mg/dL [facility] GFR/1.73 sq M.predicted CKD-EPI (S/P/Bld) [Vol rate/Area] 38 Low - PINF [facility] Comment on above: Estimated GFR was ca lculated using the 2020 CKD-EPI creatinine equation. Glucose [Mass/Vol] 293 mg/dL High 65 - 99 mg/dL [facility] HCO3 [Moles/Vol] 24 mmol/L 21 - 32 mmol/L [facility] Potassium [Moles/Vol] 4.3 mmol/L 3.5 - 5.1 mmol/L [facility] Sodium [Moles/Vol] 138 mmol/L 135 - 145 mmol/L [facility] Urea nitrogen [Mass/Vol] 30 mg/dL High 8 - 25 mg/dL [facility] Urea nitrogen/Creatinine [Mass ratio] 18.1 mg/mg 10.0 - 20.0 [facility] has implemented the eGFR calculation approach that does not have a coefficient for race that conforms to the NKF-ASN Task Force Recommendations. [facility] CBC Auto Differentialon 12-0 Basophils (Bld) [#/Vol] 0.05 10*3/uL [facility] Basophils/100 WBC (Bld) 0.5 % [facility] Eosinophils (Bld) [#/Vol] 0.18 10*3/uL [facility] Eosinophils/100 WBC (Bld) 1.7 % [facility] Erythrocyte distribution width (RBC) [Entitic vol] 13.2 % 11.6 - 14.8 % [facility] Hematocrit (Bld) [Volume fraction] 34.9 % Low 36.0 - 46.0 % [facility] Hemoglobin (Bld) [Mass/Vol] 11.9 g/dL Low 12.0 - 16.0 g/dL [facility] Immature granulocytes (Bld) [#/Vol] 0.09 10*3/uL [facility] Immature granulocytes/100 WBC (Bld) 0.9 % [facility] Comment on above: The IG parameter is the percentage of metamyelocytes, myelocytes and promyelocytes. An immature granulocyte count (IG) of 1% or more suggests the possibility of infection, an IG count of 3% is very likely related to an infection. Interpretation and review of laboratory results Abnormal [facility] Lymphocytes (Bld) [#/Vol] 1.6 10*3/uL [facility] Lymphocytes/100 WBC (Bld) 15.3 % [facility] MCH (RBC) [Entitic mass] 31.2 pg 26.0 - 34.0 pg [facility] MCHC (RBC) [Mass/Vol] 34.1 g/dL 31.0 - 37.0 g/dL [facility] MCV (RBC) [Entitic vol] 91.4 fL 80.0 - 100.0 fL [facility] Monocytes (Bld) [#/Vol] 0.5 10*3/uL [facility] Monocytes/100 WBC (Bld) 4.8 % [facility] Neutrophils (Bld) [#/Vol] 8.04 10*3/uL High [facility] Neutrophils/100 WBC (Bld) 76.8 % [facility] Nucleated RBC (Bld) [#/Vol] 0 10*3/uL [facility] Nucleated RBC/100 WBC (Bld) [Ratio] 0 % [facility] Platelet mean volume (Bld) [Entitic vol] 9.8 fL 9.4 - 12.4 fL [facility] Platelets (Bld) [#/Vol] 294 10*3/uL [facility] RBC (Bld) [#/Vol] 3.82 10*6/uL Low [facility] WBC (Bld) [#/Vol] 10.46 10*3/uL [facility] CBC WITH AUTO DIFFERENTIALon 04-26-2024 AUTO NRBC 0.0 % Normal [facility] Comment on above: Performed By: #### L [id number] ####[facility] [address] [address] Abbi Choudhary M.D. [id number] AUTO NRBC ABS COUNT 0.00 K/mcL Normal 0.00-0.00 [facility] Comment on above: Performed By: #### L [id number] ####[facility] [address] [address] Abbi Choudhary M.D. [id number] BASOPHILS ABSOLUTE COUNT 0.05 K/mcL Normal 0.00-0.30 [facility] Comment on above: Performed By: #### L [id number] ####[facility] [address] [address] Abbi Choudhary M.D. [id number] Basophils/100 WBC (Bld) 0.5 % Normal [facility] Comment on above: Performed By: #### L [id number] ####[facility] [address] [address] Abbi Choudhary M.D. [id number] Eosinophils (Bld) [#/Vol] 0.18 10*3/uL Normal 0.00-0.50 [facility] Comment on above: Performed By: #### L [id number] ####[facility] [address] [address] Abbi Choudhary M.D. [id number] Eosinophils/100 WBC (Bld) 1.7 % Normal [facility] Comment on above: Performed By: #### L [id number] ####[facility] [address] [address] Abbi Choudhary M.D. [id number] Erythrocyte distribution width (RBC) [Ratio] 13.2 % Normal 11.6-14.8 [facility] Comment on above: Performed By: #### L [id number] ####[facility] [address] [address] Abbi Choudhary M.D. [id number] Hematocrit (Bld) [Volume fraction] 34.9 % Low 36.0-46.0 [facility] Comment on above: Performed By: #### L [id number] ####[facility] [address] [address] Abbi Choudhary M.D. [id number] Hemoglobin (Bld) [Mass/Vol] 11.9 g/dL Low 12.0-16.0 [facility] Comment on above: Performed By: #### L [id number] ####[facility] [address] [address] Abbi Choudhary M.D. [id number] IG ABSOLUTE 0.09 K/mcL Normal 0.00-0.30 [facility] Comment on above: Performed By: #### L [id number] ####[facility] [address] [place] [address] Abbi Choudhary M.D. [id number] IG PERCENT 0.90 % Normal [facility] Comment on above: Result Comment: The IG parameter is the percentage of metamyelocytes, myelocytes and promyelocytes. An immature granulocyte count (IG) of 1% or more suggests the possibility of infection, an IG count of 3% is very likely related to an infection. Performed By: #### L [id number] ####[facility] [address] [address] Abbi Choudhary M.D. [id number] Lymphocytes (Bld) [#/Vol] 1.60 10*3/uL Normal 0.90-4.00 [facility] Comment on above: Performed By: #### L [id number] ####[facility] [address] [address] Abbi Choudhary M.D. [id number] Lymphocytes/100 WBC (Bld) 15.3 % Normal [facility] Comment on above: Performed By: #### L [id number] ####[facility] [address] [address] Abbi Choudhary M.D. [id number] MCH (RBC) [Entitic mass] 31.2 pg Normal 26.0-34.0 [facility] Comment on above: Performed By: #### L [id number] ####[facility] [address] [address] Abbi Choudhary M.D. [id number] MCV (RBC) [Entitic vol] 91.4 fL Normal 80.0-100.0 [facility] Comment on above: Performed By: #### L [id number] ####[facility] [address] [address] Abbi Choudhary M.D. [id number] MEAN CORPUSCULAR HEMOGLOBIN CONC 34.1 g/dL Normal 31.0-37.0 [facility] Comment on above: Performed By: #### L [id number] ####[facility] [address] [address] Abbi Choudhary M.D. [id number] Monocytes (Bld) [#/Vol] 0.50 10*3/uL Normal 0.30-0.90 [facility] Comment on above: Performed By: #### L [id number] ####[facility] [address] [place] [address] Abbi Choudhary M.D. [id number] Monocytes/100 WBC (Bld) 4.8 % Normal [facility] Comment on above: Performed By: #### L [id number] ####[facility] [address] [place], [place] [address] Abbi Choudhary M.D. [id number] NEUTROPHILS ABSOLUTE COUNT 8.04 K/mcL High 1.70-7.00 [facility] Comment on above: Performed By: #### L [id number] ####[facility] [address] [address] Abbi Choudhary M.D. [id number] Neutrophils/100 WBC (Bld) 76.8 % Normal [facility] Comment on above: Performed By: #### L [id number] ####[facility] [address] [place], [place] [address] Abbi Choudhary M.D. [id number] Platelet mean volume (Bld) [Entitic vol] 9.8 fL Normal 9.4-12.4 [facility] Comment on above: Performed By: #### L [id number] ####[facility] [address] [place], [place] [address] Abbi Choudhary M.D. [id number] Platelets (Bld) [#/Vol] 294 10*3/uL Normal 150-400 [facility] Comment on above: Performed By: #### L [id number] ####[facility] [address] [place], [place] [address] Abbi Choudhary M.D. [id number] RBC (Bld) [#/Vol] 3.82 10*6/uL Low 4.00-5.20 [facility] Comment on above: Performed By: #### L [id number] ####[facility] [address] [place], [place] [address] Abbi Choudhary M.D. [id number] WBC (Bld) [#/Vol] 10.46 10*3/uL Normal 4.50-11.00 [facility] Comment on above: Performed By: #### L [id number] ####[facility] [address] [place], [place] [address] Abbi Choudhary M.D. [id number] CRP, INFLAMMATIONon 04-26-20 24 CRP [Mass/Vol] 91.8 mg/L High 0.0-10.0 [facility] Comment on above: Performed By: #### 4 [id number] ####[facility] [address] [place], [place] [address] Abbi Choudhary M.D. [id number] CRP, Inflammationon 04-26-20 24 CRP [Mass/Vol] 91.8 mg/L High 0.0 - 10.0 mg/L [facility] Dark Green TopOrdered By: Sa sabrina Aguilar on 04-26-2024 Extra Tube n [facility] ED Prov Noteon 04-26-2024 ED Prov Note Normal [facility] ESR Westergren method (Bld) [Velocity]on 04-26-2024 ESR (Bld) [Velocity] 58 mm/h High [facility] Interpretation and review of laboratory results Abnormal [facility] H AND Paulino 04-26-2024 H AND P Normal [facility] No Panel Informationon 04-26 Extra Tube Hold for add-ons. [facility] Comment on above: Auto resulted. [facility] Interpretation and review of laboratory results Abnormal [facility] SEDIMENTATION RATEon 024 SEDIMENTATION RATE, ERYTHROCYTE 58 mm/hr High 0 [facility] Comment on above: Performed By: #### 4 [id number] ####[facility] [address] [place], [place] [address] Abbi Choudhary M.D. [id number] XR FOOT LEFT 3+ VIEWS (STAND ILIA)on 04-26-2024 XR FOOT LEFT 3+ VIEWS (STANDARD) Normal [facility] Comment on above: Order Comment: Injur y/Trauma or Illness?:Illness/OtherPatient arrives with EMS ([facility]). She ambulated off of EMS cot with [...] symptoms (acute/chronic)?:AcuteReason for exam?:Patient arrives with EMS ([facility]). She ambulated off of EMS cot with [...] Exam?:InitialAdditional signs and symptoms?:Patient arrives with EMS ([facility]). She ambulated off of EMS cot with [...] bony abnormality is seen. Workstation ID: [id number] [facility] EXAMINATION: XR FOOT LEFT 3+ VIEWS (STANDARD) 04/26/2024 8:26 pm HISTORY: ORDERING SYSTEM PROVIDED HISTORY: post op eval, TECHNOLOGIST PROVIDED HISTORY: Illness/Other Reason for exam: Patient arrives with EMS ([facility]). She ambulated off of EMS cot with [...] signs and symptoms: Patient arrives with EMS ([facility]). She ambulated off of EMS cot with [...] ORDERING SYSTEM PROVIDED DIAGNOSIS CODES: COMPARISON: 04/01/2024. Agustin Easton MD - 04/26/2024 EXAMINATION: XR FOOT LEFT 3+ VIEWS (STANDARD) 04/26/2024 8:26 pm HISTORY: ORDERING SYSTEM PROVIDED HISTORY: post op eval, TECHNOLOGIST PROVIDED HISTORY: Illness/Other Reason for exam: Patient arrives with EMS ([facility]). She ambulated off of EMS cot with [...] signs and symptoms: Patient arrives with EMS ([facility]). She ambulated off of EMS cot with [...] bony abnormality is seen. Workstation ID: [id number] [facility] Radiology Study observation (narrative) [facility] XR Foot - left 3 ViewsOrdere d By: Agustin Andrea on 04-26-2024 [facility] Work Phone: CBCon 04-04-2024 AUTO NRBC 0.0 % Normal [facility] Comment on above: Performed By: #### 4 [id number] ####[facility] [address] [place], [place] [address] Abbi Choudhary M.D. [id number] AUTO NRBC ABS COUNT 0.00 K/mcL Normal 0.00-0.00 [facility] Comment on above: Performed By: #### 4 [id number] ####[facility] [address] [place], [place] [address] Abbi Choudhary M.D. [id number] Erythrocyte distribution width (RBC) [Ratio] 13.1 % Normal 11.6-14.8 [facility] Comment on above: Performed By: #### 4 [id number] ####[facility] [address] [place], [place] [address] Abbi Choudhary M.D. [id number] Hematocrit (Bld) [Volume fraction] 26.7 % Low 36.0-46.0 [facility] Comment on above: Performed By: #### 4 [id number] ####[facility] [address] [place], [place] [address] Abbi Choudhary M.D. [id number] Hemoglobin (Bld) [Mass/Vol] 8.9 g/dL Low 12.0-16.0 [facility] Comment on above: Performed By: #### 4 [id number] ####[facility] [address] [place], [place] [address] Abbi Choudhary M.D. [id number] MCH (RBC) [Entitic mass] 31.1 pg Normal 26.0-34.0 [facility] Comment on above: Performed By: #### 4 [id number] ####[facility] [address] [place], [place] [address] Abbi Choudhary M.D. [id number] MCV (RBC) [Entitic vol] 93.4 fL Normal 80.0-100.0 [facility] Comment on above: Performed By: #### 4 [id number] ####[facility] [address] [place], [place] [address] Abbi Choudhary M.D. [id number] MEAN CORPUSCULAR HEMOGLOBIN CONC 33.3 g/dL Normal 31.0-37.0 [facility] Comment on above: Performed By: #### 4 [id number] ####[facility] [address] [place], [place] [address] Abbi Choudhary M.D. [id number] Platelet mean volume (Bld) [Entitic vol] 9.6 fL Normal 9.4-12.4 [facility] Comment on above: Performed By: #### 4 [id number] ####[facility] [address] [place], [place] [address] Abbi Choudhary M.D. [id number] Platelets (Bld) [#/Vol] 256 10*3/uL Normal 150-400 [facility] Comment on above: Performed By: #### 4 [id number] ####[facility] [address] [place], [place] [address] Abbi Choudhary M.D. [id number] RBC (Bld) [#/Vol] 2.86 10*6/uL Low 4.00-5.20 [facility] Comment on above: Performed By: #### 4 [id number] ####[facility] [address] [place], [place] [address] Abbi Choudhary M.D. [id number] WBC (Bld) [#/Vol] 7.11 10*3/uL Normal 4.50-11.00 [facility] Comment on above: Performed By: #### 4 [id number] ####[facility] [address] [place], [place] [address] Abbi Choudhary M.D. [id number] CBC panel Auto (Bld)on 04-04 Erythrocyte distribution width (RBC) [Entitic vol] 13.1 % 11.6 - 14.8 % [facility] Hematocrit (Bld) [Volume fraction] 26.7 % Low 36.0 - 46.0 % [facility] Hemoglobin (Bld) [Mass/Vol] 8.9 g/dL Low 12.0 - 16.0 g/dL [facility] Interpretation and review of laboratory results Abnormal [facility] MCH (RBC) [Entitic mass] 31.1 pg 26.0 - 34.0 pg [facility] MCHC (RBC) [Mass/Vol] 33.3 g/dL 31.0 - 37.0 g/dL [facility] MCV (RBC) [Entitic vol] 93.4 fL 80.0 - 100.0 fL [facility] Nucleated RBC (Bld) [#/Vol] 0 10*3/uL [facility] Nucleated RBC/100 WBC (Bld) [Ratio] 0 % [facility] Platelet mean volume (Bld) [Entitic vol] 9.6 fL 9.4 - 12.4 fL [facility] Platelets (Bld) [#/Vol] 256 10*3/uL [facility] RBC (Bld) [#/Vol] 2.86 10*6/uL Low [facility] WBC (Bld) [#/Vol] 7.11 10*3/uL [facility] 04-04-2024 Disch Sum[facility] Normal [facility] RENAL FUNCTION PANELon 04-04 Albumin [Mass/Vol] 3.2 g/dL Normal 3.2-5.2 [facility] Comment on above: Order Comment: [facility] Laboratory Services has implemented the eGFR calculation approach that does not have a coefficient for race that conforms to the NKF-ASN Task Force Recommendations. Performed By: #### 4 6449 ####[facility] [address] [address] Abbi Choudhary M.D. [id number] Anion gap [Moles/Vol] 12 mmol/L Normal 10-20 [facility] Comment on above: Order Comment: [facility] Services has implemented the eGFR calculation approach that does not have a coefficient for race that conforms to the NKF-ASN Task Force Recommendations. Performed By: #### 4 6449 ####[facility] [address] [place], [place] [address] Abbi Choudhary M.D. [id number] Calcium [Mass/Vol] 8.4 mg/dL Normal 8.4-10.2 [facility] Comment on above: Order Comment: [facility] Laboratory [facility] has implemented the eGFR calculation approach that does not have a coefficient for race that conforms to the NKF-ASN Task Force Recommendations. Performed By: #### 4 6449 ####[facility] [address] [place], [place] [address] Abbi Choudhary M.D. [id number] Chloride [Moles/Vol] 105 mmol/L Normal 98-108 [facility] Comment on above: Order Comment: [facility] Laboratory [facility] has implemented the eGFR calculation approach that does not have a coefficient for race that conforms to the NKF-ASN Task Force Recommendations. Performed By: #### 4 6449 ####[facility] [address] [place], [place] [address] Abbi Choudhary M.D. [id number] Creatinine [Mass/Vol] 1.34 mg/dL High 0.40-1.10 [facility] Comment on above: Order Comment: [facility] Laboratory [facility] has implemented the eGFR calculation approach that does not have a coefficient for race that conforms to the NKF-ASN Task Force Recommendations. Performed By: #### 4 6449 ####[facility] [address] [place], [place] [address] Abbi Choudhary M.D. [id number] EGFR 50 mL/min/1.73 m2 Low >=60 [facility] Comment on above: Order Comment: [facility] Services has implemented the eGFR calculation approach that does not have a coefficient for race that conforms to the NKF-ASN Task Force Recommendations. Result Comment: Lorie mated GFR was calculated using the 2020 CKD-EPI creatinine equation. Performed By: #### 4 6449 ####[facility] [address] [place], [place] [address] Abbi Choudhary M.D. [id number] Glucose [Mass/Vol] 245 mg/dL High 65-99 [facility] Comment on above: Order Comment: [facility] Laboratory Services has implemented the eGFR calculation approach that does not have a coefficient for race that conforms to the NKF-ASN Task Force Recommendations. Performed By: #### 4 6449 ####[facility] [address] [place], [place] [address] Abbi Choudhary M.D. [id number] HCO3 (Bld) [Moles/Vol] 28 mmol/L Normal 21-32 [facility] Comment on above: Order Comment: [facility] Laboratory [facility] has implemented the eGFR calculation approach that does not have a coefficient for race that conforms to the NKF-ASN Task Force Recommendations. Performed By: #### 4 6449 ####[facility] [address] [place], [place] [address] Abbi Choudhary M.D. [id number] Phosphate [Mass/Vol] 3.8 mg/dL Normal 2.7-4.5 [facility] Comment on above: Order Comment: [facility] Laboratory [facility] has implemented the eGFR calculation approach that does not have a coefficient for race that conforms to the NKF-ASN Task Force Recommendations. Performed By: #### 4 6449 ####[facility] [address] [place], [place] [address] Abbi Choudhary M.D. [id number] Potassium [Moles/Vol] 4.0 mmol/L Normal 3.5-5.1 [facility] Comment on above: Order Comment: [facility] Laboratory [facility] has implemented the eGFR calculation approach that does not have a coefficient for race that conforms to the NKF-ASN Task Force Recommendations. Performed By: #### 4 6449 ####[facility] [address] [place], [place] [address] Abbi Choudhary M.D. [id number] Sodium [Moles/Vol] 141 mmol/L Normal 135-145 [facility] Comment on above: Order Comment: [facility] Laboratory [facility] has implemented the eGFR calculation approach that does not have a coefficient for race that conforms to the NKF-ASN Task Force Recommendations. Performed By: #### 4 6449 ####[facility] [address] [place], [place] [address] Abbi Choudhary M.D. [id number] Urea nitrogen [Mass/Vol] 20 mg/dL Normal 8-25 [facility] Comment on above: Order Comment: [facility] Services has implemented the eGFR calculation approach that does not have a coefficient for race that conforms to the NKF-ASN Task Force Recommendations. Performed By: #### 4 6449 ####[facility] [address] [place], [place] [address] Abbi Choudhary M.D. [id number] Urea nitrogen/Creatinine [Mass ratio] 14.9 mg/mg Normal 10.0-20.0 [facility] Comment on above: Order Comment: [facility] Services has implemented the eGFR calculation approach that does not have a coefficient for race that conforms to the NKF-ASN Task Force Recommendations. Performed By: #### 4 6449 #### LAB [address] [place], [place] [address] Abbi Choudhary M.D. [id number] Renal function 2000 [facility] 04-04-2024 Albumin [Mass/Vol] 3.2 g/dL 3.2 - 5.2 g/dL [facility] Anion gap [Moles/Vol] 12 mmol/L 10 - 2 0 mmol/L [facility] Calcium [Mass/Vol] 8.4 mg/dL 8.4 - 10. 2 mg/dL [facility] Chloride [Moles/Vol] 105 mmol/L 98 - 10 8 mmol/L [facility] Creatinine [Mass/Vol] 1.34 mg/dL High 0.40 - 1.10 mg/dL [facility] GFR/1.73 sq M.predicted CKD-EPI (S/P/Bld) [Vol rate/Area] 50 Low - PINF [facility] Glucose [Mass/Vol] 245 mg/dL High 65 - 99 mg/dL [facility] HCO3 [Moles/Vol] 28 mmol/L 21 - 32 mmol/L [facility] Interpretation and review of laboratory results Abnormal [facility] Phosphate [Mass/Vol] 3.8 mg/dL 2.7 - 4 .5 mg/dL [facility] Potassium [Moles/Vol] 4 mmol/L 3.5 - 5.1 mmol/L [facility] Sodium [Moles/Vol] 141 mmol/L 135 - 145 mmol/L [facility] Urea nitrogen [Mass/Vol] 20 mg/dL 8 - 25 mg/dL [facility] Urea nitrogen/Creatinine [Mass ratio] 14.9 mg/mg 10.0 - 20.0 [facility] Aerobic Cultur eOrdered By: Maria T Matamoros on 04-04-2024 Bacteria identified Aer cx Nom (Unsp spec) Rare growth Staphylococcus epidermidis Abnormal [facility] Interpretation and review of laboratory results Abnormal [facility] Microscopic observation Gram stain Nom (Unsp spec) Many WBC [facility] Microscopic observation Gram stain Nom (Unsp spec) Many RBC [facility] Microscopic observation Gram stain Nom (Unsp spec) No Organisms Seen [facility] CBCon 04-03-2024 AUTO NRBC 0.0 % Normal [facility] Comment on above: Performed By: #### 4 [id number] ####[facility] [address] [place], [place] [address] Abbi Choudhary M.D. [id number] AUTO NRBC ABS COUNT 0.00 K/mcL Normal 0.00-0.00 [facility] Comment on above: Performed By: #### 4 [id number] ####[facility] [address] [place], [place] [address] Abbi Choudhary M.D. [id number] Erythrocyte distribution width (RBC) [Ratio] 13.5 % Normal 11.6-14.8 [facility] Comment on above: Performed By: #### 4 [id number] ####[facility] [address] [place], [place] [address] Abbi Choudhary M.D. [id number] Hematocrit (Bld) [Volume fraction] 26.8 % Low 36.0-46.0 [facility] Comment on above: Performed By: #### 4 [id number] ####[facility] [address] [place], [place] [address] Abbi Choudhary M.D. [id number] Hemoglobin (Bld) [Mass/Vol] 8.8 g/dL Low 12.0-16.0 [facility] Comment on above: Performed By: #### 4 [id number] ####[facility] [address] [place], [place] [address] Abbi Choudhary M.D. [id number] MCH (RBC) [Entitic mass] 31.1 pg Normal 26.0-34.0 [facility] Comment on above: Performed By: #### 4 5218 ####[facility] [address] [place], [place] [address] Abbi Choudhary M.D. [id number] MCV (RBC) [Entitic vol] 94.7 fL Normal 80.0-100.0 [facility] Comment on above: Performed By: #### 4 [id number] ####[facility] [address] [place] [address] Abbi Choudhary M.D. [id number] MEAN CORPUSCULAR HEMOGLOBIN CONC 32.8 g/dL Normal 31.0-37.0 [facility] Comment on above: Performed By: #### 4 5218 ####[facility] [address] [place], [place] [address] Abbi Choudhary M.D. [id number] Platelet mean volume (Bld) [Entitic vol] 9.5 fL Normal 9.4-12.4 [facility] Comment on above: Performed By: #### 4 [id number] ####[facility] [address] [place], [place] [address] Abbi Choudhary M.D. [id number] Platelets (Bld) [#/Vol] 277 10*3/uL Normal 150-400 [facility] Comment on above: Performed By: #### 4 [id number] ####[facility] [address] [place], [place] [address] Abbi Choudhary M.D. [id number] RBC (Bld) [#/Vol] 2.83 10*6/uL Low 4.00-5.20 [facility] Comment on above: Performed By: #### 4 [id number] ####[facility] [address] [place], [place] [address] Abbi Choudhary M.D. [id number] WBC (Bld) [#/Vol] 7.63 10*3/uL Normal 4.50-11.00 [facility] Comment on above: Performed By: #### 4 5218 ####[facility] [address] [place] [address] Abbi Choudhary M.D. [id number] CBC panel Auto (Bld)on 04-03 Erythrocyte distribution width (RBC) [Entitic vol] 13.5 % 11.6 - 14.8 % [facility] Hematocrit (Bld) [Volume fraction] 26.8 % Low 36.0 - 46.0 % [facility] Hemoglobin (Bld) [Mass/Vol] 8.8 g/dL Low 12.0 - 16.0 g/dL [facility] Interpretation and review of laboratory results Abnormal [facility] MCH (RBC) [Entitic mass] 31.1 pg 26.0 - 34.0 pg [facility] MCHC (RBC) [Mass/Vol] 32.8 g/dL 31.0 - 37.0 g/dL [facility] MCV (RBC) [Entitic vol] 94.7 fL 80.0 - 100.0 fL [facility] Nucleated RBC (Bld) [#/Vol] 0 10*3/uL [facility] Nucleated RBC/100 WBC (Bld) [Ratio] 0 % [facility] Platelet mean volume (Bld) [Entitic vol] 9.5 fL 9.4 - 12.4 fL [facility] Platelets (Bld) [#/Vol] 277 10*3/uL [facility] RBC (Bld) [#/Vol] 2.83 10*6/uL Low [facility] WBC (Bld) [#/Vol] 7.63 10*3/uL [facility] RENAL FUNCTION PANELon 04-03 Albumin [Mass/Vol] 3.2 g/dL Normal 3.2-5.2 [facility] Comment on above: Order Comment: [facility] Laboratory Services has implemented the eGFR calculation approach that does not have a coefficient for race that conforms to the NKF-ASN Task Force Recommendations. Performed By: #### 4 [id number] ####[facility] [address] [place], [place] [address] Abbi Choudhary M.D. [id number] Anion gap [Moles/Vol] 11 mmol/L Normal 10-20 [facility] Comment on above: Order Comment: [facility] Laboratory Services has implemented the eGFR calculation approach that does not have a coefficient for race that conforms to the NKF-ASN Task Force Recommendations. Performed By: #### 4 [id number] ####[facility] [address] [place], [place] [address] Abbi Choudhary M.D. [id number] Calcium [Mass/Vol] 8.2 mg/dL Low 8.4-10.2 [facility] Comment on above: Order Comment: [facility] Laboratory Services has implemented the eGFR calculation approach that does not have a coefficient for race that conforms to the NKF-ASN Task Force Recommendations. Performed By: #### 4 [id number] ####[facility] [address] [place], [place] [address] Abbi Choudhary M.D. [id number] Chloride [Moles/Vol] 106 mmol/L Normal 98-108 [facility] Comment on above: Order Comment: [facility] Laboratory Services has implemented the eGFR calculation approach that does not have a coefficient for race that conforms to the NKF-ASN Task Force Recommendations. Performed By: #### 4 [id number] ####[facility] [address] [place], [place] [address] Abbi Choudhary M.D. [id number] Creatinine [Mass/Vol] 1.65 mg/dL High 0.40-1.10 [facility] Comment on above: Order Comment: [facility] Laboratory Services has implemented the eGFR calculation approach that does not have a coefficient for race that conforms to the NKF-ASN Task Force Recommendations. Performed By: #### 4 [id number] ####[facility] [address] [place], [place] [address] Abbi Choudhary M.D. [id number] EGFR 39 mL/min/1.73 m2 Low >=60 [facility] Comment on above: Order Comment: [facility] Laboratory Services has implemented the eGFR calculation approach that does not have a coefficient for race that conforms to the NKF-ASN Task Force Recommendations. Result Comment: Lorie mated GFR was calculated using the 2020 CKD-EPI creatinine equation. Performed By: #### 4 [id number] ####[facility] [address] [place], [place] [address] Abbi Choudhary M.D. [id number] Glucose [Mass/Vol] 206 mg/dL High 65-99 [facility] Comment on above: Order Comment: [facility] Laboratory Services has implemented the eGFR calculation approach that does not have a coefficient for race that conforms to the NKF-ASN Task Force Recommendations. Performed By: #### 4 [id number] ####[facility] [address] [place], [place] [address] Abbi Choudhary M.D. [id number] HCO3 (Bld) [Moles/Vol] 28 mmol/L Normal 21-32 [facility] Comment on above: Order Comment: [facility] Laboratory [facility] has implemented the eGFR calculation approach that does not have a coefficient for race that conforms to the NKF-ASN Task Force Recommendations. Performed By: #### 4 [id number] ####[facility] [address] [place], [place] [address] Abbi Choudhary M.D. [id number] Phosphate [Mass/Vol] 4.4 mg/dL Normal 2.7-4.5 [facility] Comment on above: Order Comment: [facility] Laboratory [facility] has implemented the eGFR calculation approach that does not have a coefficient for race that conforms to the NKF-ASN Task Force Recommendations. Performed By: #### 4 [id number] ####[facility] [address] [place], [place] [address] Abbi Choudhary M.D. [id number] Potassium [Moles/Vol] 3.7 mmol/L Normal 3.5-5.1 [facility] Comment on above: Order Comment: [facility] Laboratory [facility] has implemented the eGFR calculation approach that does not have a coefficient for race that conforms to the NKF-ASN Task Force Recommendations. Performed By: #### 4 [id number] ####[facility] [address] [place], [place] [address] Abbi Choudhary M.D. [id number] Sodium [Moles/Vol] 141 mmol/L Normal 135-145 [facility] Comment on above: Order Comment: [facility] Laboratory [facility] has implemented the eGFR calculation approach that does not have a coefficient for race that conforms to the NKF-ASN Task Force Recommendations. Performed By: #### 4 [id number] ####[facility] [address] [place], [place] [address] Abbi Choudhary M.D. [id number] Urea nitrogen [Mass/Vol] 19 mg/dL Normal 8-25 [facility] Comment on above: Order Comment: [facility] Laboratory Services has implemented the eGFR calculation approach that does not have a coefficient for race that conforms to the NKF-ASN Task Force Recommendations. Performed By: #### 4 [id number] ####[facility] [address] [place], [place] [address] Abbi Choudhary M.D. [id number] Urea nitrogen/Creatinine [Mass ratio] 11.5 mg/mg Normal 10.0-20.0 [facility] Comment on above: Order Comment: [facility] Laboratory Services has implemented the eGFR calculation approach that does not have a coefficient for race that conforms to the NKF-ASN Task Force Recommendations. Performed By: #### 4 [id number] ####[facility] [address] [place], [place] [address] Abbi Choudhary M.D. [id number] Renal function 2000 [facility] 04-03-2024 Albumin [Mass/Vol] 3.2 g/dL 3.2 - 5.2 g/dL [facility] Anion gap [Moles/Vol] 11 mmol/L 10 - 2 0 mmol/L [facility] Calcium [Mass/Vol] 8.2 mg/dL Low 8.4 - 10. 2 mg/dL [facility] Chloride [Moles/Vol] 106 mmol/L 98 - 10 8 mmol/L [facility] Creatinine [Mass/Vol] 1.65 mg/dL High 0.40 - 1.10 mg/dL [facility] GFR/1.73 sq M.predicted CKD-EPI (S/P/Bld) [Vol rate/Area] 39 Low - PINF [facility] Glucose [Mass/Vol] 206 mg/dL High 65 - 99 mg/dL [facility] HCO3 [Moles/Vol] 28 mmol/L 21 - 32 mmol/L [facility] Interpretation and review of laboratory results Abnormal [facility] Phosphate [Mass/Vol] 4.4 mg/dL 2.7 - 4 .5 mg/dL [facility] Potassium [Moles/Vol] 3.7 mmol/L 3.5 - 5.1 mmol/L [facility] Sodium [Moles/Vol] 141 mmol/L 135 - 145 mmol/L [facility] Urea nitrogen [Mass/Vol] 19 mg/dL 8 - 25 mg/dL [facility] Urea nitrogen/Creatinine [Mass ratio] 11.5 mg/mg 10.0 - 20.0 [facility] CBCon 04-02-2024 AUTO NRBC 0.0 % Normal [facility] Comment on above: Performed By: #### 4 [id number] ####[facility] [address] [place], [place] [address] Abbi Choudhary M.D. [id number] AUTO NRBC ABS COUNT 0.00 K/mcL Normal 0.00-0.00 [facility] Comment on above: Performed By: #### 4 [id number] ####[facility] [address] [place] [address] Abbi Choudhary M.D. [id number] Erythrocyte distribution width (RBC) [Ratio] 13.1 % Normal 11.6-14.8 [facility] Comment on above: Performed By: #### 4 [id number] ####[facility] [address] [place], [place] [address] Abbi Choudhary M.D. [id number] Hematocrit (Bld) [Volume fraction] 26.0 % Low 36.0-46.0 [facility] Comment on above: Performed By: #### 4 [id number] ####[facility] [address] [place], [place] [address] Abbi Choudhary M.D. [id number] Hemoglobin (Bld) [Mass/Vol] 8.9 g/dL Low 12.0-16.0 [facility] Comment on above: Performed By: #### 4 [id number] ####[facility] [address] [place], [place] [address] Abbi Choudhary M.D. [id number] MCH (RBC) [Entitic mass] 31.2 pg Normal 26.0-34.0 [facility] Comment on above: Performed By: #### 4 [id number] ####[facility] [address] [place], [place] [address] Abbi Choudhary M.D. [id number] MCV (RBC) [Entitic vol] 91.2 fL Normal 80.0-100.0 [facility] Comment on above: Performed By: #### 4 [id number] ####[facility] [address] [place], [place] [address] Abbi Choudhary M.D. [id number] MEAN CORPUSCULAR HEMOGLOBIN CONC 34.2 g/dL Normal 31.0-37.0 [facility] Comment on above: Performed By: #### 4 [id number] ####[facility] [address] [place] [address] Abbi Choudhary M.D. [id number] Platelet mean volume (Bld) [Entitic vol] 9.2 fL Low 9.4-12.4 [facility] Comment on above: Performed By: #### 4 [id number] ####[facility] [address] [place], [place] [address]Alisia Choudhary M.D. [id number] Platelets (Bld) [#/Vol] 277 10*3/uL Normal 150-400 [facility] Comment on above: Performed By: #### 4 [id number] ####[facility] [address] [place] [address] Abbi Choudhary M.D. [id number] RBC (Bld) [#/Vol] 2.85 10*6/uL Low 4.00-5.20 [facility] Comment on above: Performed By: #### 4 [id number] ####[facility] [address] [place] [address] Abbi Choudhary M.D. [id number] WBC (Bld) [#/Vol] 7.42 10*3/uL Normal 4.50-11.00 [facility] Comment on above: Performed By: #### 4 [id number] ####[facility] [address] [place], [place] [address] Abbi Choudhary M.D. [id number] CBC panel Auto (Bld)on 04-02 Erythrocyte distribution width (RBC) [Entitic vol] 13.1 % 11.6 - 14.8 % [facility] Hematocrit (Bld) [Volume fraction] 26 % Low 36.0 - 46.0 % [facility] Hemoglobin (Bld) [Mass/Vol] 8.9 g/dL Low 12.0 - 16.0 g/dL [facility] Interpretation and review of laboratory results Abnormal [facility] MCH (RBC) [Entitic mass] 31.2 pg 26.0 - 34.0 pg [facility] MCHC (RBC) [Mass/Vol] 34.2 g/dL 31.0 - 37.0 g/dL [facility] MCV (RBC) [Entitic vol] 91.2 fL 80.0 - 100.0 fL [facility] Nucleated RBC (Bld) [#/Vol] 0 10*3/uL [facility] Nucleated RBC/100 WBC (Bld) [Ratio] 0 % [facility] Platelet mean volume (Bld) [Entitic vol] 9.2 fL Low 9.4 - 12.4 fL [facility] Platelets (Bld) [#/Vol] 277 10*3/uL [facility] RBC (Bld) [#/Vol] 2.85 10*6/uL Low [facility] WBC (Bld) [#/Vol] 7.42 10*3/uL [facility] Glucose (Bld) [Mass/Vol]on 06-02-2023 Glucose [Mass/Vol] 239 mg/dL High 65 - 99 mg/dL [facility] Interpretation and review of laboratory results Abnormal [facility] Glucose [Mass/Vol] 239 mg/dL High 65-99 [facility] Comment on above: Performed By: #### 4 6932 ####[facility] [address] [place], [place] [address] Abbi Choudhary M.D. [id number] RENAL FUNCTION PANELon 04-02 Albumin [Mass/Vol] 3.2 g/dL Normal 3.2-5.2 [facility] Comment on above: Order Comment: [facility] Services has implemented the eGFR calculation approach that does not have a coefficient for race that conforms to the NKF-ASN Task Force Recommendations. Performed By: #### 4 [id number] ####[facility] [address] [place], [place] [address] Abbi Choudhary M.D. [id number] Anion gap [Moles/Vol] 11 mmol/L Normal 10-20 [facility] Comment on above: Order Comment: [facility] Laboratory Services has implemented the eGFR calculation approach that does not have a coefficient for race that conforms to the NKF-ASN Task Force Recommendations. Performed By: #### 4 [id number] ####[facility] [address] [place], [place] [address] Abbi Choudhary M.D. [id number] Calcium [Mass/Vol] 8.3 mg/dL Low 8.4-10.2 [facility] Comment on above: Order Comment: [facility] Laboratory [facility] has implemented the eGFR calculation approach that does not have a coefficient for race that conforms to the NKF-ASN Task Force Recommendations. Performed By: #### 4 [id number] ####[facility] [address] [place], [place] [address] Abbi Choudhary M.D. [id number] Chloride [Moles/Vol] 107 mmol/L Normal 98-108 [facility] Comment on above: Order Comment: [facility] Laboratory [facility] has implemented the eGFR calculation approach that does not have a coefficient for race that conforms to the NKF-ASN Task Force Recommendations. Performed By: #### 4 [id number] ####[facility] [address] [place], [place] [address] Abbi Choudhary M.D. [id number] Creatinine [Mass/Vol] 1.63 mg/dL High 0.40-1.10 [facility] Comment on above: Order Comment: [facility] Laboratory [facility] has implemented the eGFR calculation approach that does not have a coefficient for race that conforms to the NKF-ASN Task Force Recommendations. Performed By: #### 4 [id number] ####[facility] [address] [place], [place] [address] Abbi Choudhary M.D. [id number] EGFR 39 mL/min/1.73 m2 Low >=60 [facility] Comment on above: Order Comment: [facility] Laboratory [facility] has implemented the eGFR calculation approach that does not have a coefficient for race that conforms to the NKF-ASN Task Force Recommendations. Result Comment: Lorie mated GFR was calculated using the 2020 CKD-EPI creatinine equation. Performed By: #### 4 [id number] ####[facility] [address] [place], [place] [address]Alisia Choudhary M.D. [id number] Glucose [Mass/Vol] 233 mg/dL High 65-99 [facility] Comment on above: Order Comment: [facility] Laboratory [facility] has implemented the eGFR calculation approach that does not have a coefficient for race that conforms to the NKF-ASN Task Force Recommendations. Performed By: #### 4 [id number] ####[facility] [address] [place], [place] [address] Abbi Choudhary M.D. [id number] HCO3 (Bld) [Moles/Vol] 29 mmol/L Normal 21-32 [facility] Comment on above: Order Comment: [facility] Laboratory [facility] has implemented the eGFR calculation approach that does not have a coefficient for race that conforms to the NKF-ASN Task Force Recommendations. Performed By: #### 4 [id number] ####[facility] [address] [place], [place] [address] Abbi Choudhary M.D. [id number] Phosphate [Mass/Vol] 3.8 mg/dL Normal 2.7-4.5 [facility] Comment on above: Order Comment: [facility] Laboratory [facility] has implemented the eGFR calculation approach that does not have a coefficient for race that conforms to the NKF-ASN Task Force Recommendations. Performed By: #### 4 [id number] ####[facility] [address] [place], [place] [address] Abbi Choudhary M.D. [id number] Potassium [Moles/Vol] 3.7 mmol/L Normal 3.5-5.1 [facility] Comment on above: Order Comment: [facility] Laboratory [facility] has implemented the eGFR calculation approach that does not have a coefficient for race that conforms to the NKF-ASN Task Force Recommendations. Performed By: #### 4 [id number] ####[facility] [address] [place], [place] [address] Abbi Choudhary M.D. [id number] Sodium [Moles/Vol] 143 mmol/L Normal 135-145 [facility] Comment on above: Order Comment: [facility] Laboratory [facility] has implemented the eGFR calculation approach that does not have a coefficient for race that conforms to the NKF-ASN Task Force Recommendations. Performed By: #### 4 [id number] ####[facility] [address] [place], [place] [address] Abbi Choudhary M.D. [id number] Urea nitrogen [Mass/Vol] 14 mg/dL Normal 8-25 [facility] Comment on above: Order Comment: [facility] Services has implemented the eGFR calculation approach that does not have a coefficient for race that conforms to the NKF-ASN Task Force Recommendations. Performed By: #### 4 [id number] ####[facility] [address] [place], [place] [address] Abbi Choudhary M.D. [id number] Urea nitrogen/Creatinine [Mass ratio] 8.6 mg/mg Low 10.0-20.0 [facility] Comment on above: Order Comment: [facility] Services has implemented the eGFR calculation approach that does not have a coefficient for race that conforms to the NKF-ASN Task Force Recommendations. Performed By: #### 4 [id number] ####[facility] [address] [place], [place] [address] Abbi Choudhary M.D. [id number] [facility] Albumin [Mass/Vol] 3.2 g/dL 3.2 - 5.2 g/dL [facility] Anion gap [Moles/Vol] 11 mmol/L 10 - 2 0 mmol/L [facility] Calcium [Mass/Vol] 8.3 mg/dL Low 8.4 - 10. 2 mg/dL [facility] Chloride [Moles/Vol] 107 mmol/L 98 - 10 8 mmol/L [facility] Creatinine [Mass/Vol] 1.63 mg/dL High 0.40 - 1.10 mg/dL [facility] GFR/1.73 sq M.predicted CKD-EPI (S/P/Bld) [Vol rate/Area] 39 Low - PINF [facility] Glucose [Mass/Vol] 233 mg/dL High 65 - 99 mg/dL [facility] HCO3 [Moles/Vol] 29 mmol/L 21 - 32 mmol/L [facility] Interpretation and review of laboratory results Abnormal [facility] Phosphate [Mass/Vol] 3.8 mg/dL 2.7 - 4 .5 mg/dL [facility] Potassium [Moles/Vol] 3.7 mmol/L 3.5 - 5.1 mmol/L [facility] Sodium [Moles/Vol] 143 mmol/L 135 - 145 mmol/L [facility] Urea nitrogen [Mass/Vol] 14 mg/dL 8 - 25 mg/dL [facility] Urea nitrogen/Creatinine [Mass ratio] 8.6 mg/mg Low 10.0 - 20.0 [facility] XR Foot - left 3 [employer]son GE RIS GE RIS [facility] XR Foot - left 3 ViewsOrdere d By: Augustine Mittal on 04-02-2024 [facility] Work Phone: CBCon 04-01-2024 AUTO NRBC 0.0 % Normal [facility] Comment on above: Performed By: #### 4 [id number] ####[facility] [address] [place], [place] [address] Abbi Choudhary M.D. [id number] AUTO NRBC ABS COUNT 0.00 K/mcL Normal 0.00-0.00 [facility] Comment on above: Performed By: #### 4 [id number] ####[facility] [address] [place], [place] [address] Abbi Choudhary M.D. [id number] Erythrocyte distribution width (RBC) [Ratio] 13.0 % Normal 11.6-14.8 [facility] Comment on above: Performed By: #### 4 [id number] ####[facility] [address] [place], [place] [address] Abbi Choudhary M.D. [id number] Hematocrit (Bld) [Volume fraction] 27.2 % Low 36.0-46.0 [facility] Comment on above: Performed By: #### 4 [id number] ####[facility] [address] [place], [place] [address] Abbi Choudhary M.D. [id number] Hemoglobin (Bld) [Mass/Vol] 9.2 g/dL Low 12.0-16.0 [facility] Comment on above: Performed By: #### 4 [id number] ####[facility] [address] [place], [place] [address] Abbi Choudhary M.D. [id number] MCH (RBC) [Entitic mass] 30.9 pg Normal 26.0-34.0 [facility] Comment on above: Performed By: #### 4 [id number] ####[facility] [address] [place], [place] [address] Abbi Choudhary M.D. [id number] MCV (RBC) [Entitic vol] 91.3 fL Normal 80.0-100.0 [facility] Comment on above: Performed By: #### 4 [id number] ####[facility] [address] [place], [place] [address] Abbi Choudhary M.D. [id number] MEAN CORPUSCULAR HEMOGLOBIN CONC 33.8 g/dL Normal 31.0-37.0 [facility] Comment on above: Performed By: #### 4 [id number] ####[facility] [address] [place], [place] [address] Abbi Choudhary M.D. [id number] Platelet mean volume (Bld) [Entitic vol] 8.8 fL Low 9.4-12.4 [facility] Comment on above: Performed By: #### 4 [id number] ####[facility] [address] [place], [place] [address] Abbi Choudhary M.D. [id number] Platelets (Bld) [#/Vol] 252 10*3/uL Normal 150-400 [facility] Comment on above: Performed By: #### 4 [id number] ####[facility] [address] [place], [place] [address] Abbi Choudhary M.D. [id number] RBC (Bld) [#/Vol] 2.98 10*6/uL Low 4.00-5.20 [facility] Comment on above: Performed By: #### 4 [id number] ####[facility] [address] [place], [place] [address] Abbi Choudhary M.D. [id number] WBC (Bld) [#/Vol] 6.99 10*3/uL Normal 4.50-11.00 [facility] Comment on above: Performed By: #### 4 [id number] ####[facility] [address] [place], [place] [address] Abbi Choudhary M.D. [id number] CBC panel Auto (Bld)on 04-01 Erythrocyte distribution width (RBC) [Entitic vol] 13 % 11.6 - 14.8 % [facility] Hematocrit (Bld) [Volume fraction] 27.2 % Low 36.0 - 46.0 % [facility] Hemoglobin (Bld) [Mass/Vol] 9.2 g/dL Low 12.0 - 16.0 g/dL [facility] Interpretation and review of laboratory results Abnormal [facility] MCH (RBC) [Entitic mass] 30.9 pg 26.0 - 34.0 pg [facility] MCHC (RBC) [Mass/Vol] 33.8 g/dL 31.0 - 37.0 g/dL [facility] MCV (RBC) [Entitic vol] 91.3 fL 80.0 - 100.0 fL [facility] Nucleated RBC (Bld) [#/Vol] 0 10*3/uL [facility] Nucleated RBC/100 WBC (Bld) [Ratio] 0 % [facility] Platelet mean volume (Bld) [Entitic vol] 8.8 fL Low 9.4 - 12.4 fL [facility] Platelets (Bld) [#/Vol] 252 10*3/uL [facility] RBC (Bld) [#/Vol] 2.98 10*6/uL Low [facility] WBC (Bld) [#/Vol] 6.99 10*3/uL [facility] ealth [facility] CT Foot - left WO contraston 04-01-2024 GE RIS GE RIS [facility] CT Foot - left WO contrastOr dered By: Kavin Duncan on 04-01-2024 [facility] Work Phone: Glucose (Bld) [Mass/Vol]on 06-01-2023 Glucose [Mass/Vol] 253 mg/dL High 65 - 99 mg/dL [facility] Interpretation and review of laboratory results Abnormal [facility] Glucose [Mass/Vol] 92 mg/dL 65 - 99 mg/dL [facility] Interpretation and review of laboratory results Normal [facility] OP NOTEon 04-01-2024 OP NOTE Normal [facility] POC GLUCOSE - Micky 024 Glucose [Mass/Vol] 253 mg/dL High 65-99 [facility] Comment on above: Performed By: #### 4 [id number] ####[facility] [address] [place], [place] [address] Abbi Choudhary M.D. [id number] Glucose [Mass/Vol] 92 mg/dL Normal 65-99 [facility] Comment on above: Performed By: #### 4 6932 ####[facility] [address] [place], [place] [address] Abbi Choudhary M.D. [id number] RENAL FUNCTION PANELon 04-01 Albumin [Mass/Vol] 3.3 g/dL Normal 3.2-5.2 [facility] Comment on above: Order Comment: [facility] Laboratory Services has implemented the eGFR calculation approach that does not have a coefficient for race that conforms to the NKF-ASN Task Force Recommendations. Performed By: #### 4 [id number] ####[facility] [address] [place], [place] [address] Abbi Choudhary M.D. [id number] Anion gap [Moles/Vol] 12 mmol/L Normal 10-20 [facility] Comment on above: Order Comment: [facility] has implemented the eGFR calculation approach that does not have a coefficient for race that conforms to the NKF-ASN Task Force Recommendations. Performed By: #### 4 [id number] ####[facility] [address] [place], [place] [address] Abbi Choudhary M.D. [id number] Calcium [Mass/Vol] 8.6 mg/dL Normal 8.4-10.2 [facility] Comment on above: Order Comment: [facility] has implemented the eGFR calculation approach that does not have a coefficient for race that conforms to the NKF-ASN Task Force Recommendations. Performed By: #### 4 6449 ####[facility] [address] [place], [place] [address] Abbi Choudhary M.D. [id number] Chloride [Moles/Vol] 108 mmol/L Normal 98-108 [facility] Comment on above: Order Comment: [facility] has implemented the eGFR calculation approach that does not have a coefficient for race that conforms to the NKF-ASN Task Force Recommendations. Performed By: #### 4 [id number] ####[facility] [address] [place], [place] [address] Abbi Choudhary M.D. [id number] Creatinine [Mass/Vol] 1.28 mg/dL High 0.40-1.10 [facility] Comment on above: Order Comment: [facility] has implemented the eGFR calculation approach that does not have a coefficient for race that conforms to the NKF-ASN Task Force Recommendations. Performed By: #### 4 [id number] ####[facility] [address] [place], [place] [address] Abbi Choudhary M.D. [id number] EGFR 52 mL/min/1.73 m2 Low >=60 [facility] Comment on above: Order Comment: [facility] has implemented the eGFR calculation approach that does not have a coefficient for race that conforms to the NKF-ASN Task Force Recommendations. Result Comment: Lorie mated GFR was calculated using the 2020 CKD-EPI creatinine equation. Performed By: #### 4 [id number] ####[facility] [address] [place], [place] [address] Abbi Choudhary M.D. [id number] Glucose [Mass/Vol] 162 mg/dL High 65-99 [facility] Comment on above: Order Comment: [facility] has implemented the eGFR calculation approach that does not have a coefficient for race that conforms to the NKF-ASN Task Force Recommendations. Performed By: #### 4 [id number] ####[facility] [address] [place], [place] [address] Abbi Choudhary M.D. [id number] HCO3 (Bld) [Moles/Vol] 27 mmol/L Normal 21-32 [facility] Comment on above: Order Comment: [facility] has implemented the eGFR calculation approach that does not have a coefficient for race that conforms to the NKF-ASN Task Force Recommendations. Performed By: #### 4 [id number] ####[facility] [address] [place], [place] [address] Abbi Choudhary M.D. [id number] Phosphate [Mass/Vol] 2.8 mg/dL Normal 2.7-4.5 [facility] Comment on above: Order Comment: [facility] has implemented the eGFR calculation approach that does not have a coefficient for race that conforms to the NKF-ASN Task Force Recommendations. Performed By: #### 4 [id number] ####[facility] [address] [place], [place] [address] Abbi Choudhary M.D. [id number] Potassium [Moles/Vol] 3.5 mmol/L Normal 3.5-5.1 [facility] Comment on above: Order Comment: [facility] has implemented the eGFR calculation approach that does not have a coefficient for race that conforms to the NKF-ASN Task Force Recommendations. Performed By: #### 4 [id number] ####[facility] [address] [place], [place] [address] Abbi Choudhary M.D. [id number] Sodium [Moles/Vol] 143 mmol/L Normal 135-145 [facility] Comment on above: Order Comment: [facility] has implemented the eGFR calculation approach that does not have a coefficient for race that conforms to the NKF-ASN Task Force Recommendations. Performed By: #### 4 [id number] ####[facility] [address] [place], [place] [address] Abbi Choudhary M.D. [id number] Urea nitrogen [Mass/Vol] 14 mg/dL Normal 8-25 [facility] Comment on above: Order Comment: [facility] has implemented the eGFR calculation approach that does not have a coefficient for race that conforms to the NKF-ASN Task Force Recommendations. Performed By: #### 4 [id number] ####[facility] [address] [place], [place] [address] Abbi Choudhary M.D. [id number] Urea nitrogen/Creatinine [Mass ratio] 10.9 mg/mg Normal 10.0-20.0 [facility] Comment on above: Order Comment: [facility] has implemented the eGFR calculation approach that does not have a coefficient for race that conforms to the NKF-ASN Task Force Recommendations. Performed By: #### 4 [id number] ####[facility] [address] [place], [place] [address] Abbi Choudhary M.D. [id number] Renal function 2000 panelon 04-01-2024 Albumin [Mass/Vol] 3.3 g/dL 3.2 - 5.2 g/dL [facility] Anion gap [Moles/Vol] 12 mmol/L 10 - 2 0 mmol/L [facility] Calcium [Mass/Vol] 8.6 mg/dL 8.4 - 10. 2 mg/dL [facility] Chloride [Moles/Vol] 108 mmol/L 98 - 10 8 mmol/L [facility] Creatinine [Mass/Vol] 1.28 mg/dL High 0.40 - 1.10 mg/dL [facility] GFR/1.73 sq M.predicted CKD-EPI (S/P/Bld) [Vol rate/Area] 52 Low - PINF [facility] Glucose [Mass/Vol] 162 mg/dL High 65 - 99 mg/dL [facility] HCO3 [Moles/Vol] 27 mmol/L 21 - 32 mmol/L [facility] Interpretation and review of laboratory results Abnormal [facility] Phosphate [Mass/Vol] 2.8 mg/dL 2.7 - 4 .5 mg/dL [facility] Potassium [Moles/Vol] 3.5 mmol/L 3.5 - 5.1 mmol/L [facility] Sodium [Moles/Vol] 143 mmol/L 135 - 145 mmol/L [facility] Urea nitrogen [Mass/Vol] 14 mg/dL 8 - 25 mg/dL [facility] Urea nitrogen/Creatinine [Mass ratio] 10.9 mg/mg 10.0 - 20.0 [facility] SURGICAL SITE AEROBIC CULTUR Turner 04-01-2024 SURGICAL SITE AEROBIC CULTURE AEROBIC CULTURE STAPHYLOCOCCUS EPIDERMIDIS Rare growth Staphylococcus epidermidis See susceptibility from same source/same date. GRAM STAIN RESULT Many WBC Many RBC No Organisms Seen Abnormal [facility] Comment on above: Performed By: #### L [id number] ####[facility] [address] [place] [address] Swapnil Brewer M.D. [id number] TISSUE EXAMon 04-01-2024 TISSUE EXAM Normal [facility] Comment on above: Performed By: #### 4 [id number] ####[facility] [address] [place], [place] [address] Abbi Choudhary M.D. [id number] [address] [place] [address] Swapnil Brewer M.D. [id number] Wound Aerobic And Anaerobic CultureOrdered By: Gayla Cook on 04-01-2024 Bacteria identified Aer cx Nom (Unsp spec) No Anaerobic Growth after 5 days [facility] Bacteria identified Aer cx Nom (Unsp spec) Light Growth Staphylococcus aureus Abnormal [facility] Bacteria identified Aer cx Nom (Unsp spec) Light Growth Normal Skin Eric [facility] Interpretation and review of laboratory results Abnormal [facility] Microscopic observation Gram stain Nom (Unsp spec) No WBC Seen [facility] Microscopic observation Gram stain Nom (Unsp spec) No Organisms Seen [facility] XR FOOT LEFT 3+ VIEWS (STAND ILIA)on 04-01-2024 XR FOOT LEFT 3+ VIEWS (STANDARD) Normal [facility] Comment on above: Order Comment: Injur y/Trauma or Illness?:Illness/OtherHow long have you had these symptoms (acute/chronic)?:AcuteReason for exam?:Status post amputation left hallux distal phalanxHistory of cancer?:uSurgeries, chemotherapy, or radiation?:pacemakerType of Exam?:InitialAdditional signs and symptoms?:Status post amputation left hallux distal phalanx XR Foot - left 3 [facility] Radiology Study observation (narrative) [facility] CBCon 03-31-2024 AUTO NRBC 0.0 % Normal [facility] Comment on above: Performed By: #### [id number] #### LAB [address] [place], [place] [address] Abbi Choudhary M.D. [id number] AUTO NRBC ABS COUNT 0.00 K/mcL Normal 0.00-0.00 [facility] Comment on above: Performed By: #### 4 [id number] ####[facility] [address] [place], [place] [address] Abbi Choudhary M.D. [id number] Erythrocyte distribution width (RBC) [Ratio] 12.6 % Normal 11.6-14.8 [facility] Comment on above: Performed By: #### 4 [id number] ####[facility] [address] [place], [place] [address] Abbi Choudhary M.D. [id number] Hematocrit (Bld) [Volume fraction] 26.9 % Low 36.0-46.0 [facility] Comment on above: Performed By: #### 4 [id number] ####[facility] [address] [place], [place] [address] Abbi Choudhary M.D. [id number] Hemoglobin (Bld) [Mass/Vol] 9.1 g/dL Low 12.0-16.0 [facility] Comment on above: Performed By: #### 4 [id number] ####[facility] [address] [place], [place] [address] Abbi Choudhary M.D. [id number] MCH (RBC) [Entitic mass] 31.8 pg Normal 26.0-34.0 [facility] Comment on above: Performed By: #### 4 [id number] ####[facility] [address] [place], [place] [address] Abbi Choudhary M.D. [id number] MCV (RBC) [Entitic vol] 94.1 fL Normal 80.0-100.0 [facility] Comment on above: Performed By: #### 4 [id number] ####[facility] [address] [place], [place] [address] Abbi Choudhary M.D. [id number] MEAN CORPUSCULAR HEMOGLOBIN CONC 33.8 g/dL Normal 31.0-37.0 [facility] Comment on above: Performed By: #### 4 [id number] ####[facility] [address] [place], [place] [address] Abbi Choudhary M.D. [id number] Platelet mean volume (Bld) [Entitic vol] 9.6 fL Normal 9.4-12.4 [facility] Comment on above: Performed By: #### 4 [id number] ####[facility] [address] [place], [place] [address] Abbi Choudhary M.D. [id number] Platelets (Bld) [#/Vol] 266 10*3/uL Normal 150-400 [facility] Comment on above: Performed By: #### 4 [id number] ####[facility] [address] [place], [place] [address] Abbi Choudhary M.D. [id number] RBC (Bld) [#/Vol] 2.86 10*6/uL Low 4.00-5.20 [facility] Comment on above: Performed By: #### 4 [id number] ####[facility] [address] [place], [place] [address] Abbi Choudhary M.D. [id number] WBC (Bld) [#/Vol] 6.83 10*3/uL Normal 4.50-11.00 [facility] Comment on above: Performed By: #### 4 [id number] ####[facility] [address] [place], [place] [address] Abbi Choudhary M.D. [id number] CBC panel Auto (Bld)on 03-31 Erythrocyte distribution width (RBC) [Entitic vol] 12.6 % 11.6 - 14.8 % [facility] Hematocrit (Bld) [Volume fraction] 26.9 % Low 36.0 - 46.0 % [facility] Hemoglobin (Bld) [Mass/Vol] 9.1 g/dL Low 12.0 - 16.0 g/dL [facility] Interpretation and review of laboratory results Abnormal [facility] MCH (RBC) [Entitic mass] 31.8 pg 26.0 - 34.0 pg [facility] MCHC (RBC) [Mass/Vol] 33.8 g/dL 31.0 - 37.0 g/dL [facility] MCV (RBC) [Entitic vol] 94.1 fL 80.0 - 100.0 fL [facility] Nucleated RBC (Bld) [#/Vol] 0 10*3/uL [facility] Nucleated RBC/100 WBC (Bld) [Ratio] 0 % [facility] Platelet mean volume (Bld) [Entitic vol] 9.6 fL 9.4 - 12.4 fL [facility] Platelets (Bld) [#/Vol] 266 10*3/uL [facility] RBC (Bld) [#/Vol] 2.86 10*6/uL Low [facility] WBC (Bld) [#/Vol] 6.83 10*3/uL [facility] ABDOMEN PELVIS WITHOUT CO NTRASTon 03-31-2024 CT ABDOMEN PELVIS WITHOUT CONTRAST Normal [facility] Comment on above: Order Comment: Injur y/Trauma or Illness?:Illness/OtherHow long have you had these symptoms (acute/chronic)?:AcuteReason for exam?:Abdominal/flank pain, stone suspectedType of Exam?:InitialAdditional signs and symptoms?:Abdominal/flank pain, stone suspected CT Abdomen and Pelvis WO con traston 03-31-2024 GE RIS GE RIS [facility] Radiology Study observation (narrative) [facility] CT Abdomen and Pelvis WO con trastOrdered By: Lawrence Coronado on 03-31-2024 [facility] Work Phone: CT FOOT LEFT WITHOUT CONTRAS Ton 03-31-2024 CT FOOT LEFT WITHOUT CONTRAST Normal [facility] Comment on above: Order Comment: Injur y/Trauma or Illness?:Illness/OtherHow long have you had these symptoms (acute/chronic)?:AcuteReason for exam?:osteomyelitisType of Exam?:InitialAdditional signs and symptoms?:foot pain CT Foot - left WO contraston 03-31-2024 Radiology Study observation (narrative) [facility] RENAL FUNCTION PANELon 03-31 Albumin [Mass/Vol] 3.1 g/dL Low 3.2-5.2 [facility] Comment on above: Order Comment: [facility] has implemented the eGFR calculation approach that does not have a coefficient for race that conforms to the NKF-ASN Task Force Recommendations. Performed By: #### 4 [id number] ####[facility] [address] [place], [place] [address] Abbi Choudhary M.D. [id number] Anion gap [Moles/Vol] 9 mmol/L Low 10-20 [facility] Comment on above: Order Comment: [facility] has implemented the eGFR calculation approach that does not have a coefficient for race that conforms to the NKF-ASN Task Force Recommendations. Performed By: #### 4 [id number] ####[facility] [address] [place], [place] [address] Abbi Choudhary M.D. [id number] Calcium [Mass/Vol] 8.9 mg/dL Normal 8.4-10.2 [facility] Comment on above: Order Comment: [facility] has implemented the eGFR calculation approach that does not have a coefficient for race that conforms to the NKF-ASN Task Force Recommendations. Performed By: #### 4 [id number] ####[facility] [address] [place], [place] [address] Abbi Choudhary M.D. [id number] Chloride [Moles/Vol] 109 mmol/L High 98-108 [facility] Comment on above: Order Comment: [facility] has implemented the eGFR calculation approach that does not have a coefficient for race that conforms to the NKF-ASN Task Force Recommendations. Performed By: #### 4 [id number] ####[facility] [address] [place], [place] [address] Abbi Choudhary M.D. [id number] Creatinine [Mass/Vol] 1.22 mg/dL High 0.40-1.10 [facility] Comment on above: Order Comment: [facility] has implemented the eGFR calculation approach that does not have a coefficient for race that conforms to the NKF-ASN Task Force Recommendations. Performed By: #### 4 [id number] ####[facility] [address] [place], [place] [address] Abbi Choudhary M.D. [id number] EGFR 56 mL/min/1.73 m2 Low >=60 [facility] Comment on above: Order Comment: [facility] has implemented the eGFR calculation approach that does not have a coefficient for race that conforms to the NKF-ASN Task Force Recommendations. Result Comment: Lorie mated GFR was calculated using the 2020 CKD-EPI creatinine equation. Performed By: #### 4 [id number] ####[facility] [address] [place], [place] [address] bAbi Choudhary M.D. [id number] Glucose [Mass/Vol] 139 mg/dL High 65-99 [facility] Comment on above: Order Comment: [facility] has implemented the eGFR calculation approach that does not have a coefficient for race that conforms to the NKF-ASN Task Force Recommendations. Performed By: #### 4 [id number] ####[facility] [address] [place], [place] [address] Abbi Choudhary M.D. [id number] HCO3 (Bld) [Moles/Vol] 28 mmol/L Normal 21-32 [facility] Comment on above: Order Comment: [facility] has implemented the eGFR calculation approach that does not have a coefficient for race that conforms to the NKF-ASN Task Force Recommendations. Performed By: #### 4 [id number] ####[facility] [address] [place], [place] [address] Abbi Choudhary M.D. [id number] Phosphate [Mass/Vol] 2.7 mg/dL Normal 2.7-4.5 [facility] Comment on above: Order Comment: [facility] has implemented the eGFR calculation approach that does not have a coefficient for race that conforms to the NKF-ASN Task Force Recommendations. Performed By: #### 4 6449 ####[facility] [address] [place], [place] [address] Abbi Choudhary M.D. [id number] Potassium [Moles/Vol] 3.4 mmol/L Low 3.5-5.1 [facility] Comment on above: Order Comment: [facility] has implemented the eGFR calculation approach that does not have a coefficient for race that conforms to the NKF-ASN Task Force Recommendations. Performed By: #### 4 [id number] ####[facility] [address] [place] [address] Abbi Choudhary M.D. [id number] Sodium [Moles/Vol] 143 mmol/L Normal 135-145 [facility] Comment on above: Order Comment: [facility] has implemented the eGFR calculation approach that does not have a coefficient for race that conforms to the NKF-ASN Task Force Recommendations. Performed By: #### 4 6449 ####[facility] [address] [place], [place] [address] Abbi Choudhary M.D. [id number] Urea nitrogen [Mass/Vol] 20 mg/dL Normal 8-25 [facility] Comment on above: Order Comment: [facility] has implemented the eGFR calculation approach that does not have a coefficient for race that conforms to the NKF-ASN Task Force Recommendations. Performed By: #### 4 6449 ####[facility] [address], [place] [address]Alisia Choudhary M.D. [id number] Urea nitrogen/Creatinine [Mass ratio] 16.4 mg/mg Normal 10.0-20.0 [facility] Comment on above: Order Comment: [facility] has implemented the eGFR calculation approach that does not have a coefficient for race that conforms to the NKF-ASN Task Force Recommendations. Performed By: #### 4 [id number] ####[facility] [address] [place] [address] Abbi Choudhary M.D. [id number] Renal function 2000 panelon 03-31-2024 Albumin [Mass/Vol] 3.1 g/dL Low 3.2 - 5.2 g/dL [facility] Anion gap [Moles/Vol] 9 mmol/L Low 10 - 2 0 mmol/L [facility] Calcium [Mass/Vol] 8.9 mg/dL 8.4 - 10. 2 mg/dL [facility] Chloride [Moles/Vol] 109 mmol/L High 98 - 10 8 mmol/L [facility] Creatinine [Mass/Vol] 1.22 mg/dL High 0.40 - 1.10 mg/dL [facility] GFR/1.73 sq M.predicted CKD-EPI (S/P/Bld) [Vol rate/Area] 56 Low - PINF [facility] Glucose [Mass/Vol] 139 mg/dL High 65 - 99 mg/dL [facility] HCO3 [Moles/Vol] 28 mmol/L 21 - 32 mmol/L [facility] Interpretation and review of laboratory results Abnormal [facility] Phosphate [Mass/Vol] 2.7 mg/dL 2.7 - 4 .5 mg/dL [facility] Potassium [Moles/Vol] 3.4 mmol/L Low 3.5 - 5.1 mmol/L [facility] Sodium [Moles/Vol] 143 mmol/L 135 - 145 mmol/L [facility] Urea nitrogen [Mass/Vol] 20 mg/dL 8 - 25 mg/dL [facility] Urea nitrogen/Creatinine [Mass ratio] 16.4 mg/mg 10.0 - 20.0 [facility] Bacteria identified Cx Nom ( Bld)on 03-30-2024 Interpretation and review of laboratory results Normal [facility] CBCon 03-30-2024 AUTO NRBC 0.0 % Normal [facility] Comment on above: Performed By: #### 4 [id number] ####[facility] [address] [place], [place] [address] Abbi Choudhary M.D. [id number] AUTO NRBC ABS COUNT 0.00 K/mcL Normal 0.00-0.00 [facility] Comment on above: Performed By: #### 4 [id number] ####[facility] [address] [place], [place] [address] Abbi Choudhary M.D. [id number] Erythrocyte distribution width (RBC) [Ratio] 12.6 % Normal 11.6-14.8 [facility] Comment on above: Performed By: #### 4 [id number] ####[facility] [address] [place], [place] [address] Abbi Choudhary M.D. [id number] Hematocrit (Bld) [Volume fraction] 29.7 % Low 36.0-46.0 [facility] Comment on above: Performed By: #### 4 [id number] ####[facility] [address] [place], [place] [address] Abbi Choudhary M.D. [id number] Hemoglobin (Bld) [Mass/Vol] 9.4 g/dL Low 12.0-16.0 [facility] Comment on above: Performed By: #### 4 [id number] ####[facility] [address] [place], [place] [address] Abbi Choudhary M.D. [id number] MCH (RBC) [Entitic mass] 30.2 pg Normal 26.0-34.0 [facility] Comment on above: Performed By: #### 4 [id number] ####[facility] [address] [place], [place] [address] Abbi Choudhary M.D. [id number] MCV (RBC) [Entitic vol] 95.5 fL Normal 80.0-100.0 [facility] Comment on above: Performed By: #### 4 [id number] ####[facility] [address] [place], [place] [address] Abbi Choudhary M.D. [id number] MEAN CORPUSCULAR HEMOGLOBIN CONC 31.6 g/dL Normal 31.0-37.0 [facility] Comment on above: Performed By: #### 4 [id number] ####[facility] [address] [place], [place] [address] Abbi Choudhary M.D. [id number] Platelet mean volume (Bld) [Entitic vol] 9.6 fL Normal 9.4-12.4 [facility] Comment on above: Performed By: #### 4 [id number] ####[facility] [address] [place], [place] [address] Abbi Choudhary M.D. [id number] Platelets (Bld) [#/Vol] 263 10*3/uL Normal 150-400 [facility] Comment on above: Performed By: #### 4 [id number] ####[facility] [address] [place] [address] Abbi Choudhary M.D. [id number] RBC (Bld) [#/Vol] 3.11 10*6/uL Low 4.00-5.20 [facility] Comment on above: Performed By: #### 4 [id number] ####[facility] [address] [place] [address] Abbi Choudhary M.D. [id number] WBC (Bld) [#/Vol] 6.90 10*3/uL Normal 4.50-11.00 [facility] Comment on above: Performed By: #### 4 [id number] ####[facility] [address] [place], [place] [address] Abbi Choudhary M.D. [id number] CBC panel Auto (Bld)on 03-30 Erythrocyte distribution width (RBC) [Entitic vol] 12.6 % 11.6 - 14.8 % [facility] Hematocrit (Bld) [Volume fraction] 29.7 % Low 36.0 - 46.0 % [facility] Hemoglobin (Bld) [Mass/Vol] 9.4 g/dL Low 12.0 - 16.0 g/dL [facility] Interpretation and review of laboratory results Abnormal [facility] MCH (RBC) [Entitic mass] 30.2 pg 26.0 - 34.0 pg [facility] MCHC (RBC) [Mass/Vol] 31.6 g/dL 31.0 - 37.0 g/dL [facility] MCV (RBC) [Entitic vol] 95.5 fL 80.0 - 100.0 fL [facility] Nucleated RBC (Bld) [#/Vol] 0 10*3/uL [facility] Nucleated RBC/100 WBC (Bld) [Ratio] 0 % [facility] Platelet mean volume (Bld) [Entitic vol] 9.6 fL 9.4 - 12.4 fL [facility] Platelets (Bld) [#/Vol] 263 10*3/uL [facility] RBC (Bld) [#/Vol] 3.11 10*6/uL Low [facility] ealth WBC (Bld) [#/Vol] 6.9 10*3/uL [facility] alth [facility] CONSULTon 03-30-2024 CONSULT Normal [facility] Glucose (Bld) [Mass/Vol]on 05-30-2023 Glucose [Mass/Vol] 250 mg/dL High 65 - 99 mg/dL [facility] Interpretation and review of laboratory results Abnormal [facility] Glucose [Mass/Vol] 102 mg/dL High 65 - 99 mg/dL [facility] Interpretation and review of laboratory results Abnormal [facility] Glucose [Mass/Vol] 183 mg/dL High 65 - 99 mg/dL [facility] Interpretation and review of laboratory results Abnormal [facility] Glucose [Mass/Vol] 285 mg/dL High 65 - 99 mg/dL [facility] Interpretation and review of laboratory results Abnormal [facility] Laboratory - Microbiology an d Antimicrobial susceptibilityon 03-30-2024 Bacteria identified Cx Nom (Bld) No Growth after 5 days [facility] h POC GLUCOSE - [facility] 024 Glucose [Mass/Vol] 250 mg/dL [address] Comment on above: Performed By: #### 4 [id number] ####[facility] [address] [place], [place] [address] Abbi Choudhary M.D. [id number] Glucose [Mass/Vol] 102 mg/dL [address] Comment on above: Performed By: #### 4 [id number] ####[facility] [address] [place], [place] [address] Abbi Choudhary M.D. [id number] Glucose [Mass/Vol] 183 mg/dL [address] Comment on above: Performed By: #### 4 [id number] ####[facility] [address] [place], [place] [address] Abbi Choudhary M.D. [id number] Glucose [Mass/Vol] 285 mg/dL High 65-99 [facility] Comment on above: Performed By: #### 4 [id number] ####[facility] [address] [place], [place] [address] Abbi Choudhary M.D. [id number] RENAL FUNCTION PANELon 03-30 Albumin [Mass/Vol] 3.3 g/dL Normal 3.2-5.2 [facility] Comment on above: Order Comment: [facility] has implemented the eGFR calculation approach that does not have a coefficient for race that conforms to the NKF-ASN Task Force Recommendations. Performed By: #### 4 [id number] ####[facility] [address] [place], [place] [address] Abbi Choudhary M.D. [id number] Anion gap [Moles/Vol] 11 mmol/L Normal 10-20 [facility] Comment on above: Order Comment: [facility] has implemented the eGFR calculation approach that does not have a coefficient for race that conforms to the NKF-ASN Task Force Recommendations. Performed By: #### 4 [id number] ####[facility] [address] [place], [place] [address] Abbi Choudhary M.D. [id number] Calcium [Mass/Vol] 9.1 mg/dL Normal 8.4-10.2 [facility] Comment on above: Order Comment: [facility] has implemented the eGFR calculation approach that does not have a coefficient for race that conforms to the NKF-ASN Task Force Recommendations. Performed By: #### 4 [id number] ####[facility] [address] [place], [place] [address] Abbi Choudhary M.D. [id number] Chloride [Moles/Vol] 108 mmol/L Normal 98-108 [facility] Comment on above: Order Comment: [facility] has implemented the eGFR calculation approach that does not have a coefficient for race that conforms to the NKF-ASN Task Force Recommendations. Performed By: #### 4 [id number] ####[facility] [address] [place], [place] [address] Abbi Choudhary M.D. [id number] Creatinine [Mass/Vol] 1.67 mg/dL High 0.40-1.10 [facility] Comment on above: Order Comment: [facility] has implemented the eGFR calculation approach that does not have a coefficient for race that conforms to the NKF-ASN Task Force Recommendations. Performed By: #### 4 [id number] ####[facility] [address] [place], [place] [address] Abbi Choudhary M.D. [id number] EGFR 38 mL/min/1.73 m2 Low >=60 [facility] Comment on above: Order Comment: [facility] has implemented the eGFR calculation approach that does not have a coefficient for race that conforms to the NKF-ASN Task Force Recommendations. Result Comment: Lorie mated GFR was calculated using the 2020 CKD-EPI creatinine equation. Performed By: #### 4 [id number] ####[facility] [address] [place], [place] [address] Abbi Choudhary M.D. [id number] Glucose [Mass/Vol] 301 mg/dL High 65-99 [facility] Comment on above: Order Comment: [facility] has implemented the eGFR calculation approach that does not have a coefficient for race that conforms to the NKF-ASN Task Force Recommendations. Performed By: #### 4 [id number] ####[facility] [address] [place], [place] [address] Abbi Choudhary M.D. [id number] HCO3 (Bld) [Moles/Vol] 24 mmol/L Normal 21-32 [facility] Comment on above: Order Comment: [facility] has implemented the eGFR calculation approach that does not have a coefficient for race that conforms to the NKF-ASN Task Force Recommendations. Performed By: #### 4 [id number] ####[facility] [address] [place], [place] [address] Abbi Choudhary M.D. [id number] Phosphate [Mass/Vol] 3.0 mg/dL Normal 2.7-4.5 [facility] Comment on above: Order Comment: [facility] Laboratory [facility] has implemented the eGFR calculation approach that does not have a coefficient for race that conforms to the NKF-ASN Task Force Recommendations. Performed By: #### 4 [id number] ####[facility] [address] [place], [place] [address] Abbi Choudhary M.D. [id number] Potassium [Moles/Vol] 4.1 mmol/L Normal 3.5-5.1 [facility] Comment on above: Order Comment: [facility] Laboratory [facility] has implemented the eGFR calculation approach that does not have a coefficient for race that conforms to the NKF-ASN Task Force Recommendations. Performed By: #### 4 [id number] ####[facility] [address] [place], [place] [address] Abbi Choudhary M.D. [id number] Sodium [Moles/Vol] 139 mmol/L Normal 135-145 [facility] Comment on above: Order Comment: [facility] Laboratory [facility] has implemented the eGFR calculation approach that does not have a coefficient for race that conforms to the NKF-ASN Task Force Recommendations. Performed By: #### 4 [id number] ####[facility] [address] [place], [place] [address] Abbi Choudhary M.D. [id number] Urea nitrogen [Mass/Vol] 29 mg/dL High 8-25 [facility] Comment on above: Order Comment: [facility] Laboratory [facility] has implemented the eGFR calculation approach that does not have a coefficient for race that conforms to the NKF-ASN Task Force Recommendations. Performed By: #### 4 [id number] ####[facility] [address] [place], [place] [address] Abbi Choudhary M.D. [id number] Urea nitrogen/Creatinine [Mass ratio] 17.4 mg/mg Normal 10.0-20.0 [facility] Comment on above: Order Comment: [facility] Laboratory [facility] has implemented the eGFR calculation approach that does not have a coefficient for race that conforms to the NKF-ASN Task Force Recommendations. Performed By: #### 4 [id number] ####[facility] [address] [place], [place] [address] Abbi Choudhary M.D. [id number] Renal function 2000 panelon 03-30-2024 Albumin [Mass/Vol] 3.3 g/dL 3.2 - 5.2 g/dL [facility] Anion gap [Moles/Vol] 11 mmol/L 10 - 2 0 mmol/L [facility] Calcium [Mass/Vol] 9.1 mg/dL 8.4 - 10. 2 mg/dL [facility] Chloride [Moles/Vol] 108 mmol/L 98 - 10 8 mmol/L [facility] Creatinine [Mass/Vol] 1.67 mg/dL High 0.40 - 1.10 mg/dL [facility] GFR/1.73 sq M.predicted CKD-EPI (S/P/Bld) [Vol rate/Area] 38 Low - PINF [facility] Glucose [Mass/Vol] 301 mg/dL High 65 - 99 mg/dL [facility] HCO3 [Moles/Vol] 24 mmol/L 21 - 32 mmol/L [facility] Interpretation and review of laboratory results Abnormal [facility] Phosphate [Mass/Vol] 3 mg/dL 2.7 - 4 .5 mg/dL [facility] Potassium [Moles/Vol] 4.1 mmol/L 3.5 - 5.1 mmol/L [facility] Sodium [Moles/Vol] 139 mmol/L 135 - 145 mmol/L [facility] Urea nitrogen [Mass/Vol] 29 mg/dL High 8 - 25 mg/dL [facility] Urea nitrogen/Creatinine [Mass ratio] 17.4 mg/mg 10.0 - 20.0 [facility] Wound Aerobic And Anaerobic CultureOrdered By: Zayda Smith on 03-30-2024 Bacteria identified Aer cx Nom (Unsp spec) No Growth after 5 days [facility] h Microscopic observation Gram stain Nom (Unsp spec) Few WBC [facility] Microscopic observation Gram stain Nom (Unsp spec) Many RBC [facility] Microscopic observation Gram stain Nom (Unsp spec) [facility] CBCon 03-29-2024 AUTO NRBC 0.0 % Normal [facility] Comment on above: Performed By: #### 4 [id number] ####[facility] [address] [place] [address] Abbi Choudhary M.D. [id number] AUTO NRBC ABS COUNT 0.00 K/mcL Normal 0.00-0.00 [facility] Comment on above: Performed By: #### 4 [id number] ####[facility] [address] [place], [place] [address] Abbi Choudhary M.D. [id number] Erythrocyte distribution width (RBC) [Ratio] 12.7 % Normal 11.6-14.8 [facility] Comment on above: Performed By: #### 4 [id number] ####[facility] [address] [place], [place] [address] Abbi Choudhary M.D. [id number] Hematocrit (Bld) [Volume fraction] 28.0 % Low 36.0-46.0 [facility] Comment on above: Performed By: #### 4 [id number] ####[facility] [address] [place], [place] [address] Abbi Choudhary M.D. [id number] Hemoglobin (Bld) [Mass/Vol] 8.8 g/dL Low 12.0-16.0 [facility] Comment on above: Performed By: #### 4 [id number] ####[facility] [address] [place], [place] [address] Abbi Choudhary M.D. [id number] MCH (RBC) [Entitic mass] 30.6 pg Normal 26.0-34.0 [facility] Comment on above: Performed By: #### 4 [id number] ####[facility] [address] [place], [place] [address] bAbi Choudhary M.D. [id number] MCV (RBC) [Entitic vol] 97.2 fL Normal 80.0-100.0 [facility] Comment on above: Performed By: #### 4 [id number] ####[facility] [address] [place], [place] [address] Abbi Choudhary M.D. [id number] MEAN CORPUSCULAR HEMOGLOBIN CONC 31.4 g/dL Normal 31.0-37.0 [facility] Comment on above: Performed By: #### 4 [id number] ####[facility] [address] [place], [place] [address] Abbi Choudhary M.D. [id number] Platelet mean volume (Bld) [Entitic vol] 9.5 fL Normal 9.4-12.4 [facility] Comment on above: Performed By: #### 4 [id number] ####[facility] [address] [place], [place] [address] Abbi Choudhary M.D. [id number] Platelets (Bld) [#/Vol] 264 10*3/uL Normal 150-400 [facility] Comment on above: Performed By: #### 4 [id number] ####[facility] [address] [place], [place] [address] Abbi Choudhary M.D. [id number] RBC (Bld) [#/Vol] 2.88 10*6/uL Low 4.00-5.20 [facility] Comment on above: Performed By: #### 4 [id number] ####[facility] [address] [place], [place] [address] Abbi Choudhary M.D. [id number] WBC (Bld) [#/Vol] 7.18 10*3/uL Normal 4.50-11.00 [facility] Comment on above: Performed By: #### 4 [id number] ####[facility] [address] [place], [place] [address] Abbi Choudhary M.D. [id number] CBC panel Auto (Bld)on 03-29 Erythrocyte distribution width (RBC) [Entitic vol] 12.7 % 11.6 - 14.8 % [facility] Hematocrit (Bld) [Volume fraction] 28 % Low 36.0 - 46.0 % [facility] Hemoglobin (Bld) [Mass/Vol] 8.8 g/dL Low 12.0 - 16.0 g/dL [facility] Interpretation and review of laboratory results Abnormal [facility] MCH (RBC) [Entitic mass] 30.6 pg 26.0 - 34.0 pg [facility] MCHC (RBC) [Mass/Vol] 31.4 g/dL 31.0 - 37.0 g/dL [facility] MCV (RBC) [Entitic vol] 97.2 fL 80.0 - 100.0 fL [facility] Nucleated RBC (Bld) [#/Vol] 0 10*3/uL [facility] Nucleated RBC/100 WBC (Bld) [Ratio] 0 % [facility] Platelet mean volume (Bld) [Entitic vol] 9.5 fL 9.4 - 12.4 fL [facility] Platelets (Bld) [#/Vol] 264 10*3/uL [facility] RBC (Bld) [#/Vol] 2.88 10*6/uL Low [facility] WBC (Bld) [#/Vol] 7.18 10*3/uL [facility] Glucose (Bld) [Mass/Vol]on 05-29-2023 Glucose [Mass/Vol] 245 mg/dL High 65 - 99 mg/dL [facility] Interpretation and review of laboratory results Abnormal [facility] Glucose [Mass/Vol] 172 mg/dL High 65 - 99 mg/dL [facility] Interpretation and review of laboratory results Abnormal [facility] Glucose [Mass/Vol] 177 mg/dL High 65 - 99 mg/dL [facility] Interpretation and review of laboratory results Abnormal [facility] Glucose [Mass/Vol] 186 mg/dL High 65 - 99 mg/dL [facility] Interpretation and review of laboratory results Abnormal [facility] Glucose [Mass/Vol] 268 mg/dL High 65 - 99 mg/dL [facility] Interpretation and review of laboratory results Abnormal [facility] POC GLUCOSE - [facility] 024 Glucose [Mass/Vol] 245 mg/dL High [address] [place] [address] Comment on above: Performed By: #### 4 [id number] ####[facility] [address] [place] [address] Abbi Choudhary M.D. [id number] Glucose [Mass/Vol] 172 mg/dL [address] Comment on above: Performed By: #### 4 [id number] ####[facility] [address] [place], [place] [address] Abbi Choudhary M.D. [id number] Glucose [Mass/Vol] 177 mg/dL [address] Comment on above: Performed By: #### 4 6932 ####[facility] [address] [place], [place] [address] Abbi Choudhary M.D. [id number] Glucose [Mass/Vol] 186 mg/dL [address] Comment on above: Performed By: #### 4 6932 ####[facility] [address] [place], [place] [address] Abbi Choudhary M.D. [id number] Glucose [Mass/Vol] 268 mg/dL High 65-99 [facility] Comment on above: Performed By: #### 4 6932 ####[facility] [address] [place], [place] [address] Abbi Choudhary M.D. [id number] RENAL FUNCTION PANELon 03-29 Albumin [Mass/Vol] 3.0 g/dL Low 3.2-5.2 [facility] Comment on above: Order Comment: [facility] has implemented the eGFR calculation approach that does not have a coefficient for race that conforms to the NKF-ASN Task Force Recommendations. Performed By: #### 4 [id number] ####[facility] [address] [place], [place] [address] Abbi Choudhary M.D. [id number] Anion gap [Moles/Vol] 14 mmol/L Normal 10-20 [facility] Comment on above: Order Comment: [facility] Laboratory [facility] has implemented the eGFR calculation approach that does not have a coefficient for race that conforms to the NKF-ASN Task Force Recommendations. Performed By: #### 4 [id number] ####[facility] [address] [place], [place] [address] Abbi Choudhary M.D. [id number] Calcium [Mass/Vol] 8.7 mg/dL Normal 8.4-10.2 [facility] Comment on above: Order Comment: [facility] Laboratory [facility] has implemented the eGFR calculation approach that does not have a coefficient for race that conforms to the NKF-ASN Task Force Recommendations. Performed By: #### 4 6449 ####[facility] [address] [place], [place] [address] Abbi Choudhary M.D. [id number] Chloride [Moles/Vol] 108 mmol/L Normal 98-108 [facility] Comment on above: Order Comment: [facility] Services has implemented the eGFR calculation approach that does not have a coefficient for race that conforms to the NKF-ASN Task Force Recommendations. Performed By: #### 4 6449 ####[facility] [address] [place] [address] Abbi Choudhary M.D. [id number] Creatinine [Mass/Vol] 2.19 mg/dL High 0.40-1.10 [facility] Comment on above: Order Comment: [facility] Services has implemented the eGFR calculation approach that does not have a coefficient for race that conforms to the NKF-ASN Task Force Recommendations. Performed By: #### 4 [id number] ####[facility] [address] [place], [place] [address] Abbi Choudhary M.D. [id number] EGFR 28 mL/min/1.73 m2 Low >=60 [facility] Comment on above: Order Comment: [facility] Services has implemented the eGFR calculation approach that does not have a coefficient for race that conforms to the NKF-ASN Task Force Recommendations. Result Comment: Lorie mated GFR was calculated using the 2020 CKD-EPI creatinine equation. Performed By: #### 4 [id number] ####[facility] [address] [place], [place] [address] Abbi Choudhary M.D. [id number] Glucose [Mass/Vol] 288 mg/dL High 65-99 [facility] Comment on above: Order Comment: [facility] Laboratory [facility] has implemented the eGFR calculation approach that does not have a coefficient for race that conforms to the NKF-ASN Task Force Recommendations. Performed By: #### 4 [id number] ####[facility] [address] [place], [place] [address] Abbi Choudhary M.D. [id number] HCO3 (Bld) [Moles/Vol] 20 mmol/L Low 21-32 [facility] Comment on above: Order Comment: [facility] Services has implemented the eGFR calculation approach that does not have a coefficient for race that conforms to the NKF-ASN Task Force Recommendations. Performed By: #### 4 6449 ####[facility] [address] [place], [place] [address] Abbi Choudhary M.D. [id number] Phosphate [Mass/Vol] 4.1 mg/dL Normal 2.7-4.5 [facility] Comment on above: Order Comment: [facility] Services has implemented the eGFR calculation approach that does not have a coefficient for race that conforms to the NKF-ASN Task Force Recommendations. Performed By: #### 4 6449 ####[facility] [address] [place], [place] [address] Abbi Choudhary M.D. [id number] Potassium [Moles/Vol] 4.8 mmol/L Normal 3.5-5.1 [facility] Comment on above: Order Comment: [facility] Services has implemented the eGFR calculation approach that does not have a coefficient for race that conforms to the NKF-ASN Task Force Recommendations. Performed By: #### 4 [id number] ####[facility] [address] [place], [place] [address] Abbi Choudhary M.D. [id number] Sodium [Moles/Vol] 137 mmol/L Normal 135-145 [facility] Comment on above: Order Comment: [facility] has implemented the eGFR calculation approach that does not have a coefficient for race that conforms to the NKF-ASN Task Force Recommendations. Performed By: #### 4 [id number] ####[facility] [address] [place], [place] [address] Abbi Choudhary M.D. [id number] Urea nitrogen [Mass/Vol] 36 mg/dL High 8-25 [facility] Comment on above: Order Comment: [facility] Laboratory [facility] has implemented the eGFR calculation approach that does not have a coefficient for race that conforms to the NKF-ASN Task Force Recommendations. Performed By: #### 4 [id number] ####[facility] [address] [place], [place] [address] Abbi Choudhary M.D. [id number] Urea nitrogen/Creatinine [Mass ratio] 16.4 mg/mg Normal 10.0-20.0 [facility] Comment on above: Order Comment: [facility] has implemented the eGFR calculation approach that does not have a coefficient for race that conforms to the NKF-ASN Task Force Recommendations. Performed By: #### 4 [id number] ####[facility] [address] [place], [place] Julio Choudhary M.D. [id number] Renal function 2000 panelon 03-29-2024 Albumin [Mass/Vol] 3 g/dL Low 3.2 - 5.2 g/dL [facility] Anion gap [Moles/Vol] 14 mmol/L 10 - 2 0 mmol/L [facility] Calcium [Mass/Vol] 8.7 mg/dL 8.4 - 10. 2 mg/dL [facility] Chloride [Moles/Vol] 108 mmol/L 98 - 10 8 mmol/L [facility] Creatinine [Mass/Vol] 2.19 mg/dL High 0.40 - 1.10 mg/dL [facility] GFR/1.73 sq M.predicted CKD-EPI (S/P/Bld) [Vol rate/Area] 28 Low - PINF [facility] Glucose [Mass/Vol] 288 mg/dL High 65 - 99 mg/dL [facility] HCO3 [Moles/Vol] 20 mmol/L Low 21 - 32 mmol/L [facility] Interpretation and review of laboratory results Abnormal [facility] Phosphate [Mass/Vol] 4.1 mg/dL 2.7 - 4 .5 mg/dL [facility] Potassium [Moles/Vol] 4.8 mmol/L 3.5 - 5.1 mmol/L [facility] Sodium [Moles/Vol] 137 mmol/L 135 - 145 mmol/L [facility] Urea nitrogen [Mass/Vol] 36 mg/dL High 8 - 25 mg/dL [facility] Urea nitrogen/Creatinine [Mass ratio] 16.4 mg/mg 10.0 - 20.0 [facility] CBCon 03-28-2024 AUTO NRBC 0.0 % Normal [facility] Comment on above: Performed By: #### 4 [id number] ####[facility] [address] [place] [address] Abbi Choudhary M.D. [id number] AUTO NRBC ABS COUNT 0.00 K/mcL Normal 0.00-0.00 [facility] Comment on above: Performed By: #### 4 [id number] ####[facility] [address] [place], [place] [address] Abbi Choudhary M.D. [id number] Erythrocyte distribution width (RBC) [Ratio] 13.1 % Normal 11.6-14.8 [facility] Comment on above: Performed By: #### 4 [id number] ####[facility] [address] [place], [place] [address] Abbi Choudhary M.D. [id number] Hematocrit (Bld) [Volume fraction] 29.5 % Low 36.0-46.0 [facility] Comment on above: Performed By: #### 4 [id number] ####[facility] [address] [place], [place] [address] Abbi Choudhary M.D. [id number] Hemoglobin (Bld) [Mass/Vol] 9.2 g/dL Low 12.0-16.0 [facility] Comment on above: Performed By: #### 4 [id number] ####[facility] [address] [place] [address] Abbi Choudhary M.D. [id number] MCH (RBC) [Entitic mass] 30.8 pg Normal 26.0-34.0 [facility] Comment on above: Performed By: #### 4 [id number] ####[facility] [address] [place], [place] [address] Abbi Choudhary M.D. [id number] MCV (RBC) [Entitic vol] 98.7 fL Normal 80.0-100.0 [facility] Comment on above: Performed By: #### 4 [id number] ####[facility] [address] [place], [place] [address] Abbi Choudhary M.D. [id number] MEAN CORPUSCULAR HEMOGLOBIN CONC 31.2 g/dL Normal 31.0-37.0 [facility] Comment on above: Performed By: #### 4 [id number] ####[facility] [address] [place], [place] [address] Abbi Choudhary M.D. [id number] Platelet mean volume (Bld) [Entitic vol] 9.4 fL Normal 9.4-12.4 [facility] Comment on above: Performed By: #### 4 [id number] ####[facility] [address] [place], [place] [address] Abbi Choudhary M.D. [id number] Platelets (Bld) [#/Vol] 282 10*3/uL Normal 150-400 [facility] Comment on above: Performed By: #### 4 [id number] ####[facility] [address] [place], [place] [address] Abbi Choudhary M.D. [id number] RBC (Bld) [#/Vol] 2.99 10*6/uL Low 4.00-5.20 [facility] Comment on above: Performed By: #### 4 [id number] ####[facility] [address] [place], [place] [address] Abbi Choudhary M.D. [id number] WBC (Bld) [#/Vol] 7.07 10*3/uL Normal 4.50-11.00 [facility] Comment on above: Performed By: #### 4 [id number] ####[facility] [address] [place], [place] [address] Abbi Choudhary M.D. [id number] CBC panel Auto (Bld)on 03-28 Erythrocyte distribution width (RBC) [Entitic vol] 13.1 % 11.6 - 14.8 % [facility] Hematocrit (Bld) [Volume fraction] 29.5 % Low 36.0 - 46.0 % [facility] Hemoglobin (Bld) [Mass/Vol] 9.2 g/dL Low 12.0 - 16.0 g/dL [facility] Interpretation and review of laboratory results Abnormal [facility] MCH (RBC) [Entitic mass] 30.8 pg 26.0 - 34.0 pg [facility] MCHC (RBC) [Mass/Vol] 31.2 g/dL 31.0 - 37.0 g/dL [facility] MCV (RBC) [Entitic vol] 98.7 fL 80.0 - 100.0 fL [facility] Nucleated RBC (Bld) [#/Vol] 0 10*3/uL [facility] Nucleated RBC/100 WBC (Bld) [Ratio] 0 % [facility] Platelet mean volume (Bld) [Entitic vol] 9.4 fL 9.4 - 12.4 fL [facility] Platelets (Bld) [#/Vol] 282 10*3/uL [facility] RBC (Bld) [#/Vol] 2.99 10*6/uL Low [facility] WBC (Bld) [#/Vol] 7.07 10*3/uL [facility] Glucose (Bld) [Mass/Vol]on 05-28-2023 Glucose [Mass/Vol] 170 mg/dL High 65 - 99 mg/dL [facility] Interpretation and review of laboratory results Abnormal [facility] Glucose [Mass/Vol] 226 mg/dL High 65 - 99 mg/dL [facility] Interpretation and review of laboratory results Abnormal [facility] Glucose [Mass/Vol] 248 mg/dL High 65 - 99 mg/dL [facility] Interpretation and review of laboratory results Abnormal [facility] Glucose [Mass/Vol] 275 mg/dL High 65 - 99 mg/dL [facility] Interpretation and review of laboratory results Abnormal [facility] Glucose [Mass/Vol] 274 mg/dL High 65 - 99 mg/dL [facility] Interpretation and review of laboratory results Abnormal [facility] POC GLUCOSE - [facility] 024 Glucose [Mass/Vol] 170 mg/dL High [address] [place] [address] Comment on above: Performed By: #### 4 [id number] ####[facility] [address] [place], [place] [address] Abbi Choudhary M.D. [id number] Glucose [Mass/Vol] 226 mg/dL [address] Comment on above: Performed By: #### 4 [id number] ####[facility] [address] [place], [place] [address] Abbi Choudhary M.D. [id number] Glucose [Mass/Vol] 248 mg/dL [address] Comment on above: Performed By: #### 4 [id number] ####[facility] [address] [place], [place] [address] Abbi Choudhary M.D. [id number] Glucose [Mass/Vol] 274 mg/dL [address] Comment on above: Performed By: #### 4 [id number] ####[facility] [address] [place], [place] [address] Abbi Choudhary M.D. [id number] RENAL FUNCTION PANELon 03-28 Albumin [Mass/Vol] 3.3 g/dL Normal 3.2-5.2 [facility] Comment on above: Order Comment: [facility] has implemented the eGFR calculation approach that does not have a coefficient for race that conforms to the NKF-ASN Task Force Recommendations. Performed By: #### 4 [id number] ####[facility] [address] [place], [place] [address] Abbi Choudhary M.D. [id number] Anion gap [Moles/Vol] 15 mmol/L Normal 10-20 [facility] Comment on above: Order Comment: [facility] has implemented the eGFR calculation approach that does not have a coefficient for race that conforms to the NKF-ASN Task Force Recommendations. Performed By: #### 4 [id number] ####[facility] [address] [place], [place] [address] Abbi Choudhary M.D. [id number] Calcium [Mass/Vol] 8.5 mg/dL Normal 8.4-10.2 [facility] Comment on above: Order Comment: [facility] has implemented the eGFR calculation approach that does not have a coefficient for race that conforms to the NKF-ASN Task Force Recommendations. Performed By: #### 4 [id number] ####[facility] [address] [place], [place] [address] Abbi Choudhary M.D. [id number] Chloride [Moles/Vol] 107 mmol/L Normal 98-108 [facility] Comment on above: Order Comment: [facility] has implemented the eGFR calculation approach that does not have a coefficient for race that conforms to the NKF-ASN Task Force Recommendations. Performed By: #### 4 [id number] ####[facility] [address] [place], [place] [address] Abbi Choudhary M.D. [id number] Creatinine [Mass/Vol] 2.47 mg/dL High 0.40-1.10 [facility] Comment on above: Order Comment: [facility] has implemented the eGFR calculation approach that does not have a coefficient for race that conforms to the NKF-ASN Task Force Recommendations. Performed By: #### 4 [id number] ####[facility] [address] [place], [place] [address] Abbi Choudhary M.D. [id number] EGFR 24 mL/min/1.73 m2 Low >=60 [facility] Comment on above: Order Comment: [facility] has implemented the eGFR calculation approach that does not have a coefficient for race that conforms to the NKF-ASN Task Force Recommendations. Result Comment: Lorie mated GFR was calculated using the 2020 CKD-EPI creatinine equation. Performed By: #### 4 [id number] ####[facility] [address] [place], [place] [address] Abbi Choudhary M.D. [id number] Glucose [Mass/Vol] 281 mg/dL High 65-99 [facility] Comment on above: Order Comment: [facility] has implemented the eGFR calculation approach that does not have a coefficient for race that conforms to the NKF-ASN Task Force Recommendations. Performed By: #### 4 [id number] ####[facility] [address] [place], [place] [address] Abbi Choudhary M.D. [id number] HCO3 (Bld) [Moles/Vol] 20 mmol/L Low 21-32 [facility] Comment on above: Order Comment: [facility] has implemented the eGFR calculation approach that does not have a coefficient for race that conforms to the NKF-ASN Task Force Recommendations. Performed By: #### 4 6449 ####[facility] [address] [place], [place] [address] Abbi Choudhary M.D. [id number] Phosphate [Mass/Vol] 4.8 mg/dL High 2.7-4.5 [facility] Comment on above: Order Comment: [facility] has implemented the eGFR calculation approach that does not have a coefficient for race that conforms to the NKF-ASN Task Force Recommendations. Performed By: #### 4 6449 ####[facility] [address] [place], [place] [address] Abbi Choudhary M.D. [id number] Potassium [Moles/Vol] 5.3 mmol/L High 3.5-5.1 [facility] Comment on above: Order Comment: [facility] has implemented the eGFR calculation approach that does not have a coefficient for race that conforms to the NKF-ASN Task Force Recommendations. Performed By: #### 4 [id number] ####[facility] [address] [place], [place] [address] Abbi Choudhary M.D. [id number] Sodium [Moles/Vol] 137 mmol/L Normal 135-145 [facility] Comment on above: Order Comment: [facility] has implemented the eGFR calculation approach that does not have a coefficient for race that conforms to the NKF-ASN Task Force Recommendations. Performed By: #### 4 [id number] ####[facility] [address] [place], [place] [address] Abbi Choudhary M.D. [id number] Urea nitrogen [Mass/Vol] 34 mg/dL High 8-25 [facility] Comment on above: Order Comment: [facility] has implemented the eGFR calculation approach that does not have a coefficient for race that conforms to the NKF-ASN Task Force Recommendations. Performed By: #### 4 [id number] ####[facility] [address] [place], [place] [address] Abbi Choudhary M.D. [id number] Urea nitrogen/Creatinine [Mass ratio] 13.8 mg/mg Normal 10.0-20.0 [facility] Comment on above: Order Comment: [facility] has implemented the eGFR calculation approach that does not have a coefficient for race that conforms to the NKF-ASN Task Force Recommendations. Performed By: #### 4 [id number] #### LAB [address] [place], [place] [address] Abbi Choudhary M.D. [id number] Renal function 2000 [facility] 03-28-2024 Albumin [Mass/Vol] 3.3 g/dL 3.2 - 5.2 g/dL [facility] Anion gap [Moles/Vol] 15 mmol/L 10 - 2 0 mmol/L [facility] Calcium [Mass/Vol] 8.5 mg/dL 8.4 - 10. 2 mg/dL [facility] Chloride [Moles/Vol] 107 mmol/L 98 - 10 8 mmol/L [facility] Creatinine [Mass/Vol] 2.47 mg/dL High 0.40 - 1.10 mg/dL [facility] GFR/1.73 sq M.predicted CKD-EPI (S/P/Bld) [Vol rate/Area] 24 Low - PINF [facility] Glucose [Mass/Vol] 281 mg/dL High 65 - 99 mg/dL [facility] HCO3 [Moles/Vol] 20 mmol/L Low 21 - 32 mmol/L [facility] Interpretation and review of laboratory results Abnormal [facility] Phosphate [Mass/Vol] 4.8 mg/dL High 2.7 - 4 .5 mg/dL [facility] Potassium [Moles/Vol] 5.3 mmol/L High 3.5 - 5.1 mmol/L [facility] Sodium [Moles/Vol] 137 mmol/L 135 - 145 mmol/L [facility] Urea nitrogen [Mass/Vol] 34 mg/dL High 8 - 25 mg/dL [facility] Urea nitrogen/Creatinine [Mass ratio] 13.8 mg/mg 10.0 - 20.0 [facility] Kidney - bilateral and Ur inary bladderon 03-28-2024 GE RIS GE RIS [facility] Kidney - bilateral and Ur inary bladderOrdered By: Leena Chiu on 03-28-2024 [facility] Work Phone: Bacteria identified Aer cx N om (Unsp spec)Ordered By: Keyla Guerrero on 03-27-2024 Interpretation and review of laboratory results Abnormal [facility] CBCon 03-27-2024 AUTO NRBC 0.0 % Normal [facility] Comment on above: Performed By: #### 4 [id number] ####[facility] [address] [place] [address] Abbi Choudhary M.D. [id number] AUTO NRBC ABS COUNT 0.00 K/mcL Normal 0.00-0.00 [facility] Comment on above: Performed By: #### 4 [id number] ####[facility] [address] [place], [place] [address] Abbi Choudhary M.D. [id number] Erythrocyte distribution width (RBC) [Ratio] 13.2 % Normal 11.6-14.8 [facility] Comment on above: Performed By: #### 4 [id number] ####[facility] [address] [place], [place] [address] Abbi Choudhary M.D. [id number] Hematocrit (Bld) [Volume fraction] 30.8 % Low 36.0-46.0 [facility] Comment on above: Performed By: #### 4 [id number] ####[facility] [address] [place], [place] [address] Abbi Choudhary M.D. [id number] Hemoglobin (Bld) [Mass/Vol] 9.6 g/dL Low 12.0-16.0 [facility] Comment on above: Performed By: #### 4 [id number] ####[facility] [address] [place], [place] [address] Abbi Choudhary M.D. [id number] MCH (RBC) [Entitic mass] 30.6 pg Normal 26.0-34.0 [facility] Comment on above: Performed By: #### 4 [id number] ####[facility] [address] [place], [place] [address] Abbi Choudhary M.D. [id number] MCV (RBC) [Entitic vol] 98.1 fL Normal 80.0-100.0 [facility] Comment on above: Performed By: #### 4 [id number] ####[facility] [address] [place], [place] [address] Abbi Choudhary M.D. [id number] MEAN CORPUSCULAR HEMOGLOBIN CONC 31.2 g/dL Normal 31.0-37.0 [facility] Comment on above: Performed By: #### 4 [id number] ####[facility] [address] [place], [place] [address] Abbi Choudhary M.D. [id number] Platelet mean volume (Bld) [Entitic vol] 9.4 fL Normal 9.4-12.4 [facility] Comment on above: Performed By: #### 4 [id number] ####[facility] [address] [place], [place] [address] Abbi Choudhary M.D. [id number] Platelets (Bld) [#/Vol] 308 10*3/uL Normal 150-400 [facility] Comment on above: Performed By: #### 4 [id number] ####[facility] [address] [place], [place] [address] Abbi Choudhary M.D. [id number] RBC (Bld) [#/Vol] 3.14 10*6/uL Low 4.00-5.20 [facility] Comment on above: Performed By: #### 4 [id number] ####[facility] [address] [place], [place] [address] Abbi Choudhary M.D. [id number] WBC (Bld) [#/Vol] 7.80 10*3/uL Normal 4.50-11.00 [facility] Comment on above: Performed By: #### 4 [id number] ####[facility] [address] [place], [place] [address] Abbi Choudhary M.D. [id number] CBC panel Auto (Bld)on 03-27 Erythrocyte distribution width (RBC) [Entitic vol] 13.2 % 11.6 - 14.8 % [facility] Hematocrit (Bld) [Volume fraction] 30.8 % Low 36.0 - 46.0 % [facility] Hemoglobin (Bld) [Mass/Vol] 9.6 g/dL Low 12.0 - 16.0 g/dL [facility] Interpretation and review of laboratory results Abnormal [facility] MCH (RBC) [Entitic mass] 30.6 pg 26.0 - 34.0 pg [facility] MCHC (RBC) [Mass/Vol] 31.2 g/dL 31.0 - 37.0 g/dL [facility] MCV (RBC) [Entitic vol] 98.1 fL 80.0 - 100.0 fL [facility] Nucleated RBC (Bld) [#/Vol] 0 10*3/uL [facility] Nucleated RBC/100 WBC (Bld) [Ratio] 0 % [facility] Platelet mean volume (Bld) [Entitic vol] 9.4 fL 9.4 - 12.4 fL [facility] Platelets (Bld) [#/Vol] 308 10*3/uL [facility] RBC (Bld) [#/Vol] 3.14 10*6/uL Low [facility] WBC (Bld) [#/Vol] 7.8 10*3/uL [facility] alth [facility] CK [Catalytic activity/Vol]o n 03-27-2024 Interpretation and review of laboratory results Normal [facility] COMPREHENSIVE METABOLIC PANE [place] 03-27-2024 Albumin [Mass/Vol] 3.1 g/dL Low 3.2-5.2 [facility] Comment on above: Order Comment: [facility] has implemented the eGFR calculation approach that does not have a coefficient for race that conforms to the NKF-ASN Task Force Recommendations. Performed By: #### 4 [id number] ####[facility] [address] [place], [place] [address] Abbi Choudhary M.D. [id number] ALP [Catalytic activity/Vol] 91 U/L Normal 40-150 [facility] Comment on above: Order Comment: [facility] has implemented the eGFR calculation approach that does not have a coefficient for race that conforms to the NKF-ASN Task Force Recommendations. Performed By: #### 4 [id number] ####[facility] [address] [place], [place] [address] Abbi Choudhary M.D. [id number] ALT [Catalytic activity/Vol] 11 U/L Normal 0-35 U/L [facility] Comment on above: Order Comment: [facility] has implemented the eGFR calculation approach that does not have a coefficient for race that conforms to the NKF-ASN Task Force Recommendations. Performed By: #### 4 [id number] ####[facility] [address] [place], [place] [address] Abbi Choudhary M.D. [id number] Anion gap [Moles/Vol] 14 mmol/L Normal 10-20 [facility] Comment on above: Order Comment: [facility] has implemented the eGFR calculation approach that does not have a coefficient for race that conforms to the NKF-ASN Task Force Recommendations. Performed By: #### 4 [id number] ####[facility] [address] [place], [place] [address] Abbi Choudhary M.D. [id number] AST [Catalytic activity/Vol] 11 U/L Normal 0-35 U/L [facility] Comment on above: Order Comment: [facility] has implemented the eGFR calculation approach that does not have a coefficient for race that conforms to the NKF-ASN Task Force Recommendations. Performed By: #### 4 [id number] ####[facility] [address] [place], [place] [address] Abbi Choudhary M.D. [id number] Bilirubin [Mass/Vol] 0.3 mg/dL Normal 0.0-1.3 [facility] Comment on above: Order Comment: [facility] has implemented the eGFR calculation approach that does not have a coefficient for race that conforms to the NKF-ASN Task Force Recommendations. Performed By: #### 4 [id number] ####[facility] [address] [place], [place] [address] Abbi Choudhary M.D. [id number] Calcium [Mass/Vol] 8.2 mg/dL Low 8.4-10.2 [facility] Comment on above: Order Comment: [facility] has implemented the eGFR calculation approach that does not have a coefficient for race that conforms to the NKF-ASN Task Force Recommendations. Performed By: #### 4 [id number] ####[facility] [address] [place], [place] [address] Abbi Choudhary M.D. [id number] Chloride [Moles/Vol] 110 mmol/L High 98-108 [facility] Comment on above: Order Comment: [facility] has implemented the eGFR calculation approach that does not have a coefficient for race that conforms to the NKF-ASN Task Force Recommendations. Performed By: #### 4 [id number] ####[facility] [address] [place], [place] [address] Abbi Choudhary M.D. [id number] Creatinine [Mass/Vol] 2.53 mg/dL High 0.40-1.10 [facility] Comment on above: Order Comment: [facility] has implemented the eGFR calculation approach that does not have a coefficient for race that conforms to the NKF-ASN Task Force Recommendations. Performed By: #### 4 [id number] ####[facility] [address] [place], [place] [address] Abbi Choudhary M.D. [id number] EGFR 23 mL/min/1.73 m2 Low >=60 [facility] Comment on above: Order Comment: [facility] has implemented the eGFR calculation approach that does not have a coefficient for race that conforms to the NKF-ASN Task Force Recommendations. Result Comment: Lorie mated GFR was calculated using the 2020 CKD-EPI creatinine equation. Performed By: #### 4 [id number] ####[facility] [address] [place], [place] [address] Abbi Choudhary M.D. [id number] Glucose [Mass/Vol] 161 mg/dL High 65-99 [facility] Comment on above: Order Comment: [facility] has implemented the eGFR calculation approach that does not have a coefficient for race that conforms to the NKF-ASN Task Force Recommendations. Performed By: #### 4 [id number] ####[facility] [address] [place], [place] [address] Abbi Choudhary M.D. [id number] HCO3 (Bld) [Moles/Vol] 21 mmol/L Normal 21-32 [facility] Comment on above: Order Comment: [facility] has implemented the eGFR calculation approach that does not have a coefficient for race that conforms to the NKF-ASN Task Force Recommendations. Performed By: #### 4 [id number] ####[facility] [address] [place] [address] Abbi Choudhary M.D. [id number] Potassium [Moles/Vol] 4.8 mmol/L Normal 3.5-5.1 [facility] Comment on above: Order Comment: [facility] has implemented the eGFR calculation approach that does not have a coefficient for race that conforms to the NKF-ASN Task Force Recommendations. Performed By: #### 4 [id number] ####[facility] [address] [place], [place] [address] Abbi Choudhary M.D. [id number] Protein [Mass/Vol] 5.9 g/dL Low 6.0-8.0 [facility] Comment on above: Order Comment: [facility] has implemented the eGFR calculation approach that does not have a coefficient for race that conforms to the NKF-ASN Task Force Recommendations. Performed By: #### 4 [id number] ####[facility] [address] [place], [place] [address] Abbi Choudhary M.D. [id number] Sodium [Moles/Vol] 140 mmol/L Normal 135-145 [facility] Comment on above: Order Comment: [facility] has implemented the eGFR calculation approach that does not have a coefficient for race that conforms to the NKF-ASN Task Force Recommendations. Performed By: #### 4 [id number] ####[facility] [address] [place], [place] [address] Abbi Choudhary M.D. [id number] Urea nitrogen [Mass/Vol] 32 mg/dL High 8-25 [facility] Comment on above: Order Comment: [facility] has implemented the eGFR calculation approach that does not have a coefficient for race that conforms to the NKF-ASN Task Force Recommendations. Performed By: #### 4 [id number] ####[facility] [address] [place], [place] [address] Abbi Choudhary M.D. [id number] Urea nitrogen/Creatinine [Mass ratio] 12.6 mg/mg Normal 10.0-20.0 [facility] Comment on above: Order Comment: [facility] has implemented the eGFR calculation approach that does not have a coefficient for race that conforms to the NKF-ASN Task Force Recommendations. Performed By: #### 4 [id number] ####[facility] [address] [place], [place] [address] Abbi Choudhary M.D. [id number] CONSULTon 03-27-2024 CONSULT Normal [facility] CONSULT Normal [facility] CPKon 03-27-2024 CPK 56 U/L Normal 40-170 [facility] Comment on above: Performed By: #### 4 [id number] ####[facility] [address] [place], [place] [address] Abbi Choudhary M.D. [id number] CPK NO MBon 03-27-2024 CK [Catalytic activity/Vol] 56 U/L 40 - 170 U/L [facility] Comprehensive metabolic 2000 panelon 03-27-2024 Albumin [Mass/Vol] 3.1 g/dL Low 3.2 - 5.2 g/dL [facility] ALP [Catalytic activity/Vol] 91 U/L 40 - 150 U/L [facility] ALT [Catalytic activity/Vol] 11 U/L 0-35 U/L [facility] Anion gap [Moles/Vol] 14 mmol/L 10 - 2 0 mmol/L [facility] AST [Catalytic activity/Vol] 11 U/L 0-35 U/L [facility] Bilirubin [Mass/Vol] 0.3 mg/dL 0.0 - 1 .3 mg/dL [facility] Calcium [Mass/Vol] 8.2 mg/dL Low 8.4 - 10. 2 mg/dL [facility] Chloride [Moles/Vol] 110 mmol/L High 98 - 10 8 mmol/L [facility] Creatinine [Mass/Vol] 2.53 mg/dL High 0.40 - 1.10 mg/dL [facility] GFR/1.73 sq M.predicted CKD-EPI (S/P/Bld) [Vol rate/Area] 23 Low - PINF [facility] Glucose [Mass/Vol] 161 mg/dL High 65 - 99 mg/dL [facility] HCO3 [Moles/Vol] 21 mmol/L 21 - 32 mmol/L [facility] Interpretation and review of laboratory results Abnormal [facility] Potassium [Moles/Vol] 4.8 mmol/L 3.5 - 5.1 mmol/L [facility] Protein [Mass/Vol] 5.9 g/dL Low 6.0 - 8.0 g/dL [facility] Sodium [Moles/Vol] 140 mmol/L 135 - 145 mmol/L [facility] Urea nitrogen [Mass/Vol] 32 mg/dL High 8 - 25 mg/dL [facility] Urea nitrogen/Creatinine [Mass ratio] 12.6 mg/mg 10.0 - 20.0 [facility] Glucose (Bld) [Mass/Vol]on 05-27-2023 Glucose [Mass/Vol] 131 mg/dL High 65 - 99 mg/dL [facility] Interpretation and review of laboratory results Abnormal [facility] Glucose [Mass/Vol] 177 mg/dL High 65 - 99 mg/dL [facility] Interpretation and review of laboratory results Abnormal [facility] Glucose [Mass/Vol] 223 mg/dL High 65 - 99 mg/dL [facility] Interpretation and review of laboratory results Abnormal [facility] Glucose [Mass/Vol] 267 mg/dL High 65 - 99 mg/dL [facility] Interpretation and review of laboratory results Abnormal [facility] Glucose [Mass/Vol] 135 mg/dL High 65 - 99 mg/dL [facility] Interpretation and review of laboratory results Abnormal [facility] Glucose [Mass/Vol] 275 mg/dL High 65 - 99 mg/dL [facility] Interpretation and review of laboratory results Abnormal [facility] POC GLUCOSE - RALSon 024 Glucose [Mass/Vol] 131 mg/dL High [address] [place] [address] Comment on above: Performed By: #### 4 6932 ####[facility] [address] [place], [place] [address] Abbi Choudhary M.D. [id number] Glucose [Mass/Vol] 177 mg/dL [address] Comment on above: Performed By: #### 4 6932 ####[facility] [address] [place], [place] [address] Abbi Choudhary M.D. [id number] Glucose [Mass/Vol] 223 mg/dL [address] Comment on above: Performed By: #### 4 6932 ####[facility] [address] [place], [place] [address] Abbi Choudhary M.D. [id number] Glucose [Mass/Vol] 267 mg/dL [address] Comment on above: Performed By: #### 4 6932 ####[facility] [address] [place], [place] [address] Abbi Choudhary M.D. [id number] Glucose [Mass/Vol] 135 mg/dL [address] Comment on above: Performed By: #### 4 6932 ####[facility] [address] [place], [place] [address] Abbi Choudhary M.D. [id number] Glucose [Mass/Vol] 275 mg/dL [address] Comment on above: Performed By: #### 4 6932 ####[facility] [address] [place], [place] [address] Abbi Choudhary M.D. [id number] US Kidney - bilateral and Ur inary bladderon 03-27-2024 Radiology Study observation (narrative) [facility] US RENAL AND BLADDERon 03-27 US RENAL AND BLADDER Normal [facility] Comment on above: Order Comment: Injur y/Trauma or Illness?:Illness/OtherHow long have you had these symptoms (acute/chronic)?:UnknownReason for exam?:Renal failureHistory of cancer?:uSurgeries, chemotherapy, or radiation?:pacemakerType of Exam?:UnknownAdditional signs and symptoms?:no Urine Aerobic CultureOrdered By: Keyla Guerrero on 03-27-2024 Bacteria identified Aer cx Nom (Unsp spec) 50,000-100,000 CFU/mL Escherichia coli Abnormal [facility] XR CHEST LATERAL LEFTon XR CHEST LATERAL LEFT Normal [facility] Comment on above: Order Comment: Injur y/Trauma or Illness?:Illness/OtherHow long have you had these symptoms (acute/chronic)?:AcuteReason for exam?:Eval depth of port access needleHistory of cancer?:uSurgeries, chemotherapy, or radiation?:pacemakerType of Exam?:OngoingAdditional signs and symptoms?:unable to get blood return XR CHEST PA/APon 03-27-2024 XR CHEST PA/AP Normal [facility] Comment on above: Order Comment: Injur y/Trauma or Illness?:Illness/OtherHow long have you had these symptoms (acute/chronic)?:AcuteReason for exam?:port varifictionHistory of cancer?:uSurgeries, chemotherapy, or radiation?:pacemakerType of Exam?:UnknownAdditional signs and symptoms?:no XR Chest AP left lateral-dec ubituson 03-27-2024 GE RIS GE RIS [facility] Radiology Study observation (narrative) [facility] XR Chest PA and Abdomen APon 03-27-2024 GE RIS GE RIS [facility] Radiology Study observation (narrative) [facility] XR Chest PA and Abdomen APOr dered By: Jermaine Peralta on 03-27-2024 [facility] Work Phone: BASIC METABOLIC PANELon Anion gap [Moles/Vol] 16 mmol/L Normal 10-20 [facility] Comment on above: Order Comment: [facility] has implemented the eGFR calculation approach that does not have a coefficient for race that conforms to the NKF-ASN Task Force Recommendations. Performed By: #### 4 6111 ####[facility] [address] [place] [address] Abbi Choudhary M.D. [id number] Calcium [Mass/Vol] 8.3 mg/dL Low 8.4-10.2 [facility] Comment on above: Order Comment: [facility] has implemented the eGFR calculation approach that does not have a coefficient for race that conforms to the NKF-ASN Task Force Recommendations. Performed By: #### 4 6124 ####[facility] [address] [place], [place] [address] Abbi Choudhary M.D. [id number] Chloride [Moles/Vol] 106 mmol/L Normal 98-108 [facility] Comment on above: Order Comment: [facility] has implemented the eGFR calculation approach that does not have a coefficient for race that conforms to the NKF-ASN Task Force Recommendations. Performed By: #### 4 6124 ####[facility] [address] [place] [address] Abbi Choudhary M.D. [id number] Creatinine [Mass/Vol] 2.52 mg/dL High 0.40-1.10 [facility] Comment on above: Order Comment: [facility] has implemented the eGFR calculation approach that does not have a coefficient for race that conforms to the NKF-ASN Task Force Recommendations. Performed By: #### 4 6124 ####[facility] [address] [place], [place] [address] Abbi Choudhary M.D. [id number] EGFR 23 mL/min/1.73 m2 Low >=60 [facility] Comment on above: Order Comment: [facility] has implemented the eGFR calculation approach that does not have a coefficient for race that conforms to the NKF-ASN Task Force Recommendations. Result Comment: Lorie mated GFR was calculated using the 2020 CKD-EPI creatinine equation. Performed By: #### 4 6124 ####[facility] [address] [place], [place] [address] Abbi Choudhary M.D. [id number] Glucose [Mass/Vol] 333 mg/dL High 65-99 [facility] Comment on above: Order Comment: [facility] has implemented the eGFR calculation approach that does not have a coefficient for race that conforms to the NKF-ASN Task Force Recommendations. Performed By: #### 4 6124 ####[facility] [address] [place], [place] [address] Abbi Choudhary M.D. [id number] HCO3 (Bld) [Moles/Vol] 20 mmol/L Low 21-32 [facility] Comment on above: Order Comment: [facility] has implemented the eGFR calculation approach that does not have a coefficient for race that conforms to the NKF-ASN Task Force Recommendations. Performed By: #### 4 6124 ####[facility] [address] [place], [place] [address] Abbi Choudhary M.D. [id number] Potassium [Moles/Vol] 4.8 mmol/L Normal 3.5-5.1 [facility] Comment on above: Order Comment: [facility] has implemented the eGFR calculation approach that does not have a coefficient for race that conforms to the NKF-ASN Task Force Recommendations. Performed By: #### 4 6124 ####[facility] [address] [place], [place] [address] Abbi Choudhary M.D. [id number] Sodium [Moles/Vol] 137 mmol/L Normal 135-145 [facility] Comment on above: Order Comment: [facility] has implemented the eGFR calculation approach that does not have a coefficient for race that conforms to the NKF-ASN Task Force Recommendations. Performed By: #### 4 6124 ####[facility] [address] [place], [place] [address] Abbi Choudhary M.D. [id number] Urea nitrogen [Mass/Vol] 30 mg/dL High 8-25 [facility] Comment on above: Order Comment: [facility] has implemented the eGFR calculation approach that does not have a coefficient for race that conforms to the NKF-ASN Task Force Recommendations. Performed By: #### 4 6124 ####[facility] [address] [place], [place] [address] Abbi Choudhary M.D. [id number] Urea nitrogen/Creatinine [Mass ratio] 11.9 mg/mg Normal 10.0-20.0 [facility] Comment on above: Order Comment: [facility] has implemented the eGFR calculation approach that does not have a coefficient for race that conforms to the NKF-ASN Task Force Recommendations. Performed By: #### 4 6124 ####[facility] [address] [place], [place] [address] Abbi Choudhary M.D. [id number] BETA-HYDROXYBUTYRATEon 03-26 BETA-HYDROXYBUTYRATE < Normal 0.0-0.3 [facility] Comment on above: Performed By: #### 4 5139 ####[facility] [address] [place], [place] [address] Abbi Choudhary M.D. [id number] Basic metabolic 2000 panelOr dered By: Wai Villatoro on 03-26-2024 Anion gap [Moles/Vol] 16 mmol/L 10 - 2 0 mmol/L [facility] Calcium [Mass/Vol] 8.3 mg/dL Low 8.4 - 10. 2 mg/dL [facility] Chloride [Moles/Vol] 106 mmol/L 98 - 10 8 mmol/L [facility] Creatinine [Mass/Vol] 2.52 mg/dL High 0.40 - 1.10 mg/dL [facility] GFR/1.73 sq M.predicted CKD-EPI (S/P/Bld) [Vol rate/Area] 23 Low - PINF [facility] Glucose [Mass/Vol] 333 mg/dL High 65 - 99 mg/dL [facility] HCO3 [Moles/Vol] 20 mmol/L Low 21 - 32 mmol/L [facility] Interpretation and review of laboratory results Abnormal [facility] Potassium [Moles/Vol] 4.8 mmol/L 3.5 - 5.1 mmol/L [facility] Sodium [Moles/Vol] 137 mmol/L 135 - 145 mmol/L [facility] Urea nitrogen [Mass/Vol] 30 mg/dL High 8 - 25 mg/dL [facility] Urea nitrogen/Creatinine [Mass ratio] 11.9 mg/mg 10.0 - 20.0 [facility] Beta hydroxybutyrate [Moles/ Vol]on 03-26-2024 Interpretation and review of laboratory results Normal [facility] Beta-Hydroxybutyrateon 03-26 Beta hydroxybutyrate [Moles/Vol] mmol/L 0.0 - 0.3 mmol/L [facility] CBC (INCLUDES DIFF/PLT)on Basophils (Bld) [#/Vol] 0.073 10*3/uL Normal 0-200 [facility] Comment on above: Performed By: #### 9 1431, 72854, 866, 899, 496, 6399, 28367 #### [facility] of [place] [address] Mailing Machine Assistant: Dean Maddox MD Basophils/100 WBC (Bld) 0.7 % Normal [facility] Comment on above: Performed By: #### 9 1431, 82969, 866, 899, 496, 6399, 78512 #### [facility] of [place] [address] Mailing Machine Assistant: Dean Maddox MD Eosinophils (Bld) [#/Vol] 0.354 10*3/uL Normal 15-500 [facility] Comment on above: Performed By: #### 9 1431, 20468, 866, 899, 496, 6399, 02163 #### [facility] of [place] [address] Mailing Machine Assistant: Dean Maddox MD Eosinophils/100 WBC (Bld) 3.4 % Normal [facility] Comment on above: Performed By: #### 9 1431, 51225, 866, 899, 496, 6399, 64715 #### [facility] of [place] [address] Mailing Machine Assistant: Dean Maddox MD Erythrocyte distribution width (RBC) [Ratio] 13.0 % Normal 11.0-15.0 [facility] Comment on above: Performed By: #### 9 1431, 86805, 866, 899, 496, 6399, 05111 #### [facility] of [place] [address] Mailing Machine Assistant: Dean Maddox MD Hematocrit (Bld) [Volume fraction] 40.1 % Normal 35.0-45.0 [facility] Comment on above: Performed By: #### 9 1431, 14658, 866, 899, 496, 6399, 42992 #### [facility] of [place] [address] Mailing Machine Assistant: Dean Maddox MD Hemoglobin (Bld) [Mass/Vol] 12.8 g/dL Normal 11.7-15.5 [facility] Comment on above: Performed By: #### 9 1431, 33462, 866, 899, 496, 6399, 19634 #### [facility] [place] [address] Mailing Machine Assistant: Dean Maddox MD Lymphocytes (Bld) [#/Vol] 2.007 10*3/uL Normal 850-3900 [facility] Comment on above: Performed By: #### 9 1431, 95384, 866, 899, 496, 6399, 65143 #### [facility] of [place] [address] Mailing Machine Assistant: Dean Maddox MD Lymphocytes/100 WBC (Bld) 19.3 % Normal [facility] Comment on above: Performed By: #### 9 1431, 87372, 866, 899, 496, 6399, 86164 #### [facility] of [place] [address] Mailing Machine Assistant: Dean Maddox MD MCH (RBC) [Entitic mass] 30.0 pg Normal 27.0-33.0 [facility] Comment on above: Performed By: #### 9 1431, 40755, 866, 899, 496, 6399, 06392 #### [facility] of [place] [address] Mailing Machine Assistant: Dean Maddox MD MCHC (RBC) [Mass/Vol] 31.9 [...] clinical condition. Performed By: #### 9 1431, 43682, 866, 899, 496, 6399, 27225 #### [facility] of [place] [address] Mailing Machine Assistant: Dean Maddox MD MCV (RBC) [Entitic vol] 94.1 fL Normal 80.0-100.0 [facility] Comment on above: Performed By: #### 9 1431, 06015, 866, 899, 496, 6399, 39854 #### [facility] of [place] [address] Mailing Machine Assistant: Dean Maddox MD Monocytes (Bld) [#/Vol] 0.478 10*3/uL Normal 200-950 [facility] Comment on above: Performed By: #### 9 1431, 75043, 866, 899, 496, 6399, 25093 #### [facility] of [place] [address] Mailing Machine Assistant: Dean Maddox MD Monocytes/100 WBC (Bld) 4.6 % Normal [facility] Comment on above: Performed By: #### 9 1431, 92807, 866, 899, 496, 6399, 53293 #### [facility] of [place] [address] Mailing Machine Assistant: Dean Maddox MD Neutrophils (Bld) [#/Vol] 7.488 10*3/uL Normal 8507-1486 [facility] Comment on above: Performed By: #### 9 1431, 38182, 866, 899, 496, 6399, 42981 #### [facility] of [place] [address] Mailing Machine Assistant: Dean Maddox MD Neutrophils/100 WBC (Bld) 72 % Normal [facility] Comment on above: Performed By: #### 9 1431, 07932, 866, 899, 496, 6399, 69859 #### [facility] of [place] [address] [place] [address] Mailing Machine Assistant: Dean Maddox MD Platelet mean volume (Bld) [Entitic vol] 9.6 fL Normal 7.5-12.5 [facility] Comment on above: Performed By: #### 9 1431, 95974, 866, 899, 496, 6399, 62396 #### [facility] [place] [address] Mailing Machine Assistant: Dean Maddox MD Platelets (Bld) [#/Vol] 367 10*3/uL Normal 140-400 [facility] Comment on above: Performed By: #### 9 1431, 72647, 866, 899, 496, 6399, 11741 #### [facility] [place] [address] Mailing Machine Assistant: Dean Maddox MD RBC (Bld) [#/Vol] 4.26 10*6/uL Normal 3.80-5.10 [facility] Comment on above: Performed By: #### 9 1431, 15486, 866, 899, 496, 6399, 85745 #### [facility] [place] [address] Mailing Machine Assistant: Dean Maddox MD WBC (Bld) [#/Vol] 10.4 10*3/uL Normal 3.8-10.8 [facility] Comment on above: Performed By: #### 9 1431, 45736, 866, 899, 496, 6399, 86411 #### [facility] of [place] [address] Mailing Machine Assistant: Dean Maddox MD [facility]ABOL[facility] 03-26-2024 Albumin [Mass/Vol] 4.1 g/dL Normal 3.6-5.1 [facility] Comment on above: Order Comment: COLLE CTION KIT GIVEN TO PATIENT. PATIENT ADVISED TO RETURN. Performed By: #### 9 1431, 50545, 866, 899, 496, 6399, 59367 #### [facility] of [facility] [address], [address] [place] [address] Mailing Machine Assistant: Dean Maddox MD Albumin/Globulin [Mass ratio] 1.3 {ratio} Normal 1.0-2.5 [facility] Comment on above: Order Comment: COLLE CTION KIT GIVEN TO PATIENT. PATIENT ADVISED TO RETURN. Performed By: #### 9 1431, 49700, 866, 899, 496, 6399, 25168 #### [facility] [place] [address] Mailing Machine Assistant: Dean Maddox MD ALP [Catalytic activity/Vol] 114 U/L Normal 31-125 [facility] Comment on above: Order Comment: COLLE CTION KIT GIVEN TO PATIENT. PATIENT ADVISED TO RETURN. Performed By: #### 9 1431, 04460, 866, 899, 496, 6399, 96113 #### [facility] [place] [address] Mailing Machine Assistant: Dean Maddox MD ALT [Catalytic activity/Vol] 11 U/L Normal 6-29 [facility] Comment on above: Order Comment: COLLE CTION KIT GIVEN TO PATIENT. PATIENT ADVISED TO RETURN. Performed By: #### 9 1431, 23638, 866, 899, 496, 6399, 80136 #### [facility] [place] [address] Mailing Machine Assistant: Dean Maddox MD AST [Catalytic activity/Vol] 9 U/L Low 10-35 [facility] Comment on above: Order Comment: COLLE CTION KIT GIVEN TO PATIENT. PATIENT ADVISED TO RETURN. Performed By: #### 9 1431, 62791, 866, 899, 496, 6399, 51035 #### [facility] [place] [address] Mailing Machine Assistant: Dean Maddox MD Bilirubin [Mass/Vol] 0.5 mg/dL Normal 0.2-1.2 [facility] Comment on above: Order Comment: COLLE CTION KIT GIVEN TO PATIENT. PATIENT ADVISED TO RETURN. Performed By: #### 9 1431, 73446, 866, 899, 496, 6399, 17566 #### [facility] [address], [address] [place] [address] Mailing Machine Assistant: Dean Maddox MD Calcium [Mass/Vol] 9.8 mg/dL Normal 8.6-10.2 [facility] Comment on above: Order Comment: COLLE CTION KIT GIVEN TO PATIENT. PATIENT ADVISED TO RETURN. Performed By: #### 9 1431, 59861, 866, 899, 496, 6399, 27457 #### [facility] [address], [address] [place] [address] Mailing Machine Assistant: Dean Maddox MD Chloride [Moles/Vol] 106 mmol/L Normal 98-110 [facility] Comment on above: Order Comment: COLLE CTION KIT GIVEN TO PATIENT. PATIENT ADVISED TO RETURN. Performed By: #### 9 1431, 76513, 866, 899, 496, 6399, 35735 #### [facility] [address], [address] [place] [address] Mailing Machine Assistant: Dean Maddox MD CO2 [Moles/Vol] 23 mmol/L Normal 20-32 [facility] Comment on above: Order Comment: COLLE CTION KIT GIVEN TO PATIENT. PATIENT ADVISED TO RETURN. Performed By: #### 9 1431, 16644, 866, 899, 496, 6399, 07533 #### [facility] [address], [address] [place] [address] Mailing Machine Assistant: Dean Maddox MD Creatinine [Mass/Vol] 1.28 mg/dL High 0.50-0.[address] [facility] Comment on above: Order Comment: COLLE CTION KIT GIVEN TO PATIENT. PATIENT ADVISED TO RETURN. Performed By: #### 9 1431, 96061, 866, 899, 496, 6399, 38776 #### [facility] [address], [address] [place] [address] Mailing Machine Assistant: Dean Maddox MD GFR/1.73 sq M.predicted among non-blacks MDRD (S/P/Bld) [Vol rate/Area] 52 mL/min/{1.73_m2} Low > OR = 60 [facility] Comment on above: Order Comment: COLLE CTION KIT GIVEN TO PATIENT. PATIENT ADVISED TO RETURN. Performed By: #### 9 1431, 56792, 866, 899, 496, 6399, 43697 #### [facility] [address], [address] [place] [address] Mailing Machine Assistant: Dean Maddox MD Globulin (S) [Mass/Vol] 3.1 g/dL Normal 1.9-3.7 [facility] Comment on above: Order Comment: COLLE CTION KIT GIVEN TO PATIENT. PATIENT ADVISED TO RETURN. Performed By: #### 9 1431, 77256, 866, 899, 496, 6399, 91836 #### [facility] [address], [address] [place] [address] Mailing Machine Assistant: Dean Maddox MD Glucose [Mass/Vol] 239 mg/dL High 65-99 [facility] Comment on above: Order Comment: COLLE CTION KIT GIVEN TO PATIENT. PATIENT ADVISED TO RETURN. Result Comment: Fasting reference interval For someone without known diabetes, a glucose value >125 mg/dL indicates that they may have diabetes and this should be confirmed with a follow-up test. Performed By: #### 9 1431, 29899, 866, 899, 496, 6399, 90298 #### [facility] [address], [address] [place] [address] Mailing Machine Assistant: Dean Maddox MD Potassium [Moles/Vol] 4.3 mmol/L Normal 3.5-5.[address] [facility] Comment on above: Order Comment: COLLE CTION KIT GIVEN TO PATIENT. PATIENT ADVISED TO RETURN. Performed By: #### 9 1431, 50543, 866, 899, 496, 6399, 28151 #### [facility] [address], [address] [place] [address] Mailing Machine Assistant: Dean Maddox MD Protein [Mass/Vol] 7.2 g/dL Normal 6.1-8.1 [facility] Comment on above: Order Comment: COLLE CTION KIT GIVEN TO PATIENT. PATIENT ADVISED TO RETURN. Performed By: #### 9 1431, 99923, 866, 899, 496, 6399, 25826 #### [facility] [address], [address] [place] [address] Mailing Machine Assistant: Dean Maddox MD Sodium [Moles/Vol] 138 mmol/L Normal 135-146 [facility] Comment on above: Order Comment: COLLE CTION KIT GIVEN TO PATIENT. PATIENT ADVISED TO RETURN. Performed By: #### 9 1431, 49186, 866, 899, 496, 6399, 99639 #### [facility] [address], [address] [place] [address] Mailing Machine Assistant: Dean Maddox MD Urea nitrogen [Mass/Vol] 34 mg/dL High 7-25 [facility] Comment on above: Order Comment: COLLE CTION KIT GIVEN TO PATIENT. PATIENT ADVISED TO RETURN. Performed By: #### 9 1431, 43925, 866, 899, 496, 6399, 11142 #### [facility] [address], [address] [place] [address] Mailing Machine Assistant: Dean Maddox MD Urea nitrogen/Creatinine [Mass ratio] 27 mg/mg High 6-22 [facility] Comment on above: Order Comment: COLLE CTION KIT GIVEN TO PATIENT. PATIENT ADVISED TO RETURN. Performed By: #### 9 1431, 94008, 866, 899, 496, 6399, 48799 #### [facility] [address], [address] [place] [address] Mailing Machine Assistant: Dean Maddox MD CREATININE, SERUMon 03-26-20 24 Creatinine [Mass/Vol] 1.67 mg/dL High 0.40-1.10 [facility] Comment on above: Order Comment: For m onitoring while on vancomycin therapy[facility] has implemented the eGFR calculation approach that does not have a coefficient for race that conforms to the NKF-ASN Task Force Recommendations. Performed By: #### 4 5336 ####[facility] [address] [place], [place] [address] Abbi Choudhary M.D. [id number] EGFR 38 mL/min/1.73 m2 Low >=60 [facility] Comment on above: Order Comment: For m onitoring while on vancomycin therapyAs[facility] has implemented the eGFR calculation approach that does not have a coefficient for race that conforms to the NKF-ASN Task Force Recommendations. Result Comment: Lorie mated GFR was calculated using the 2020 CKD-EPI creatinine equation. Performed By: #### 4 5336 ####[facility] [address] [place], [place] [address] Abbi Choudhary M.D. [id number] Creatinine [Mass/Vol]on GFR/1.73 sq M.predicted CKD-EPI (S/P/Bld) [Vol rate/Area] 38 [facility] Interpretation and review of laboratory results Abnormal [facility] Creatinine, Serumon 03-26-20 Creatinine [Mass/Vol] 1.67 mg/dL High 0.40 - 1.10 mg/dL [facility] Glucose (Bld) [Mass/Vol]on 05-26-2023 Glucose [Mass/Vol] 328 mg/dL High 65 - 99 mg/dL [facility] Interpretation and review of laboratory results Abnormal [facility] Glucose [Mass/Vol] 312 mg/dL High 65 - 99 mg/dL [facility] Interpretation and review of laboratory results Abnormal [facility] Glucose [Mass/Vol] 214 mg/dL High 65 - 99 mg/dL [facility] Interpretation and review of laboratory results Abnormal [facility] Glucose [Mass/Vol] 101 mg/dL High 65 - 99 mg/dL [facility] Interpretation and review of laboratory results Abnormal [facility] Glucose [Mass/Vol] 72 mg/dL 65 - 99 mg/dL [facility] Interpretation and review of laboratory results Normal [facility] LEVETIRACETAMon 03-26-2024 levETIRAcetam [Mass/Vol] ug/mL Low [facility] Comment on above: Result Comment: Refe rence Range: 12.0-46.0 Toxic level is not well established. Interpretation should include a clinical evaluation. For additional information, please refer to http://education.[employer]/faq/KTX309 (This link is being provided for informational/educational purposes only.) This test was developed and its analytical performance characteristics have been determined by [employer]. It has not been cleared or approved by the FDA. This assay has been validated pursuant to the CLIA regulations and is used for clinical purposes. Performed By: #### 9 1431, 60312, 866, 899, 496, 6399, 33764 #### [facility] [address] [facility], [address] [place] [address] Mailing Machine Assistant: Dean Zimmer 03-26-2024 Extra Tube Hold for add-ons. [facility] POC GLUCOSE - [facility] 024 Glucose [Mass/Vol] 328 mg/dL High [address] [place] [address] Comment on above: Performed By: #### 4 6932 ####[facility] [address] [place], [place] [address] Abbi Choudhary M.D. [id number] Glucose [Mass/Vol] 312 mg/dL High [address] [place] [address] Comment on above: Performed By: #### 4 6932 ####[facility] [address] [place], [place] [address] Abbi Choudhary M.D. [id number] Glucose [Mass/Vol] 214 mg/dL [address] Comment on above: Performed By: #### 4 6932 ####[facility] [address] [place], [place] [address] Abbi Choudhary M.D. [id number] Glucose [Mass/Vol] 101 mg/dL High [address] [place] [address] Comment on above: Performed By: #### 4 6932 ####[facility] [address] [place], [place] [address] Abbi Choudhary M.D. [id number] Glucose [Mass/Vol] 72 mg/dL Normal [address] [place] [address] Comment on above: Performed By: #### 4 6932 ####[facility] [address] [place], [place] [address] Abbi Choudhary M.D. [id number] BASIC METABOLIC PANELon 11-0 Anion gap [Moles/Vol] 15 mmol/L Normal 10-20 [facility] Comment on above: Order Comment: [facility] has implemented the eGFR calculation approach that does not have a coefficient for race that conforms to the NKF-ASN Task Force Recommendations. Performed By: #### 4 6124 ####[facility] [address] [place], [place] [address] Abbi Choudhary M.D. [id number] Calcium [Mass/Vol] 8.3 mg/dL Low 8.4-10.2 [facility] Comment on above: Order Comment: [facility] has implemented the eGFR calculation approach that does not have a coefficient for race that conforms to the NKF-ASN Task Force Recommendations. Performed By: #### 4 6124 ####[facility] [address] [place], [place] [address] Abbi Choudhary M.D. [id number] Chloride [Moles/Vol] 105 mmol/L Normal 98-108 [facility] Comment on above: Order Comment: [facility] has implemented the eGFR calculation approach that does not have a coefficient for race that conforms to the NKF-ASN Task Force Recommendations. Performed By: #### 4 6124 ####[facility] [address] [place], [place] [address] Abbi Choudhary M.D. [id number] Creatinine [Mass/Vol] 1.35 mg/dL High 0.40-1.10 [facility] Comment on above: Order Comment: [facility] has implemented the eGFR calculation approach that does not have a coefficient for race that conforms to the NKF-ASN Task Force Recommendations. Performed By: #### 4 6124 ####[facility] [address] [place], [place] [address] Abbi Choudhary M.D. [id number] EGFR 49 mL/min/1.73 m2 Low >=60 [facility] Comment on above: Order Comment: [facility] has implemented the eGFR calculation approach that does not have a coefficient for race that conforms to the NKF-ASN Task Force Recommendations. Result Comment: Lorie mated GFR was calculated using the 2020 CKD-EPI creatinine equation. Performed By: #### 4 6124 ####[facility] [address] [place], [place] [address] Abbi Choudhary M.D. [id number] Glucose [Mass/Vol] 345 mg/dL High 65-99 [facility] Comment on above: Order Comment: [facility] has implemented the eGFR calculation approach that does not have a coefficient for race that conforms to the NKF-ASN Task Force Recommendations. Performed By: #### 4 6124 ####[facility] [address] [place], [place] [address] Abbi Choudhary M.D. [id number] HCO3 (Bld) [Moles/Vol] 22 mmol/L Normal 21-32 [facility] Comment on above: Order Comment: [facility] has implemented the eGFR calculation approach that does not have a coefficient for race that conforms to the NKF-ASN Task Force Recommendations. Performed By: #### 4 6124 ####[facility] [address] [place], [place] [address] Abbi Choudhary M.D. [id number] Potassium [Moles/Vol] 4.3 mmol/L Normal 3.5-5.1 [facility] Comment on above: Order Comment: [facility] has implemented the eGFR calculation approach that does not have a coefficient for race that conforms to the NKF-ASN Task Force Recommendations. Performed By: #### 4 6124 ####[facility] [address] [place], [place] [address] Abbi Choudhary M.D. [id number] Sodium [Moles/Vol] 138 mmol/L Normal 135-145 [facility] Comment on above: Order Comment: [facility] has implemented the eGFR calculation approach that does not have a coefficient for race that conforms to the NKF-ASN Task Force Recommendations. Performed By: #### 4 6124 ####[facility] [address] [place], [place] [address] Abbi Choudhary M.D. [id number] Urea nitrogen [Mass/Vol] 23 mg/dL Normal 8-25 [facility] Comment on above: Order Comment: [facility] has implemented the eGFR calculation approach that does not have a coefficient for race that conforms to the NKF-ASN Task Force Recommendations. Performed By: #### 4 6124 ####[facility] [address] [place], [place] [address] Abbi Choudhary M.D. [id number] Urea nitrogen/Creatinine [Mass ratio] 17.0 mg/mg Normal 10.0-20.0 [facility] Comment on above: Order Comment: [facility] has implemented the eGFR calculation approach that does not have a coefficient for race that conforms to the NKF-ASN Task Force Recommendations. Performed By: #### 4 6124 ####[facility] [address] [place], [place] [address] Abbi Choudhary M.D. [id number] BLOOD CULTURE AEROBIC/ANAERO [facility] 03-25-2024 BLOOD CULTURE AEROBIC/ANAEROBIC BLOOD CULTURE No Growth after 5 days Normal [facility] Comment on above: Performed By: #### 4 4014 ####[facility] [address] [place] [address] Swapnil Brewer M.D. [id number] Basic metabolic 2000 panelon 03-25-2024 Anion gap [Moles/Vol] 15 mmol/L 10 - 2 0 mmol/L [facility] Calcium [Mass/Vol] 8.3 mg/dL Low 8.4 - 10. 2 mg/dL [facility] Chloride [Moles/Vol] 105 mmol/L 98 - 10 8 mmol/L [facility] Creatinine [Mass/Vol] 1.35 mg/dL High 0.40 - 1.10 mg/dL [facility] GFR/1.73 sq M.predicted CKD-EPI (S/P/Bld) [Vol rate/Area] 49 Low - PINF [facility] Glucose [Mass/Vol] 345 mg/dL High 65 - 99 mg/dL [facility] HCO3 [Moles/Vol] 22 mmol/L 21 - 32 mmol/L [facility] Interpretation and review of laboratory results Abnormal [facility] Potassium [Moles/Vol] 4.3 mmol/L 3.5 - 5.1 mmol/L [facility] Sodium [Moles/Vol] 138 mmol/L 135 - 145 mmol/L [facility] Urea nitrogen [Mass/Vol] 23 mg/dL 8 - 25 mg/dL [facility] Urea nitrogen/Creatinine [Mass ratio] 17 mg/mg 10.0 - 20.0 [facility] CBCon 03-25-2024 AUTO NRBC 0.0 % Normal [facility] Comment on above: Performed By: #### 4 [id number] ####[facility] [address] [place], [place] [address] Abbi Choudhary M.D. [id number] AUTO NRBC ABS COUNT 0.00 K/mcL Normal 0.00-0.00 [facility] Comment on above: Performed By: #### 4 [id number] ####[facility] [address] [place] [address] Abbi Choudhary M.D. [id number] Erythrocyte distribution width (RBC) [Ratio] 13.0 % Normal 11.6-14.8 [facility] Comment on above: Performed By: #### 4 [id number] ####[facility] [address] [place], [place] [address] Abbi Choudhary M.D. [id number] Hematocrit (Bld) [Volume fraction] 29.7 % Low 36.0-46.0 [facility] Comment on above: Performed By: #### 4 [id number] ####[facility] [address] [place], [place] [address] Abbi Choudhary M.D. [id number] Hemoglobin (Bld) [Mass/Vol] 10.2 g/dL Low 12.0-16.0 [facility] Comment on above: Performed By: #### 4 [id number] ####[facility] [address] [place], [place] [address] Abbi Choudhary M.D. [id number] MCH (RBC) [Entitic mass] 30.7 pg Normal 26.0-34.0 [facility] Comment on above: Performed By: #### 4 [id number] ####[facility] [address] [place], [place] [address] Abbi Choudhary M.D. [id number] MCV (RBC) [Entitic vol] 89.5 fL Normal 80.0-100.0 [facility] Comment on above: Performed By: #### 4 [id number] ####[facility] [address] [place], [place] [address] Abbi Choudhary M.D. [id number] MEAN CORPUSCULAR HEMOGLOBIN CONC 34.3 g/dL Normal 31.0-37.0 [facility] Comment on above: Performed By: #### 4 [id number] ####[facility] [address] [place], [place] [address] Abbi Choudhary M.D. [id number] Platelet mean volume (Bld) [Entitic vol] 9.0 fL Low 9.4-12.4 [facility] Comment on above: Performed By: #### 4 [id number] ####[facility] [address] [place], [place] [address] Abbi Choudhary M.D. [id number] Platelets (Bld) [#/Vol] 297 10*3/uL Normal 150-400 [facility] Comment on above: Performed By: #### 4 [id number] ####[facility] [address] [place], [place] [address] Abbi Choudhary M.D. [id number] RBC (Bld) [#/Vol] 3.32 10*6/uL Low 4.00-5.20 [facility] Comment on above: Performed By: #### 4 [id number] ####[facility] [address] [place], [place] [address] Abbi Choudhary M.D. [id number] WBC (Bld) [#/Vol] 8.66 10*3/uL Normal 4.50-11.00 [facility] Comment on above: Performed By: #### 4 [id number] ####[facility] [address] [place], [place] [address] Abbi Choudhary M.D. [id number] CBC panel Auto (Bld)on 03-25 Erythrocyte distribution width (RBC) [Entitic vol] 13 % 11.6 - 14.8 % [facility] Hematocrit (Bld) [Volume fraction] 29.7 % Low 36.0 - 46.0 % [facility] Hemoglobin (Bld) [Mass/Vol] 10.2 g/dL Low 12.0 - 16.0 g/dL [facility] Interpretation and review of laboratory results Abnormal [facility] MCH (RBC) [Entitic mass] 30.7 pg 26.0 - 34.0 pg [facility] MCHC (RBC) [Mass/Vol] 34.3 g/dL 31.0 - 37.0 g/dL [facility] MCV (RBC) [Entitic vol] 89.5 fL 80.0 - 100.0 fL [facility] Nucleated RBC (Bld) [#/Vol] 0 10*3/uL [facility] Nucleated RBC/100 WBC (Bld) [Ratio] 0 % [facility] Platelet mean volume (Bld) [Entitic vol] 9 fL Low 9.4 - 12.4 fL [facility] Platelets (Bld) [#/Vol] 297 10*3/uL [facility] RBC (Bld) [#/Vol] 3.32 10*6/uL Low [facility] WBC (Bld) [#/Vol] 8.66 10*3/uL [facility] ealth [facility] CONSULTon 03-25-2024 CONSULT Normal [facility] ECG 12- Leadon 03-25-2024 Atrial Rate 109 BPM [facility] P Addison 51 degrees [facility] P-R Interval 176 ms [facility] Q-T Interval 328 ms [facility] QRS Duration 82 ms [facility] QTC Calculation (Bezet) 441 ms [facility] R Addison 14 degrees [facility] T Addison 37 degrees [facility] Ventricular Rate 109 BPM [facility] MUSE [facility] EKGon 03-25-2024 [facility] Glucose (Bld) [Mass/Vol]on 05-25-2023 Glucose [Mass/Vol] 117 mg/dL High 65 - 99 mg/dL [facility] Interpretation and review of laboratory results Abnormal [facility] Glucose [Mass/Vol] 142 mg/dL High 65 - 99 mg/dL [facility] Interpretation and review of laboratory results Abnormal [facility] Glucose [Mass/Vol] 148 mg/dL High 65 - 99 mg/dL [facility] Interpretation and review of laboratory results Abnormal [facility] Glucose [Mass/Vol] 286 mg/dL High 65 - 99 mg/dL [facility] Interpretation and review of laboratory results Abnormal [facility] Glucose [Mass/Vol] 343 mg/dL High 65 - 99 mg/dL [facility] Interpretation and review of laboratory results Abnormal [facility] Glucose [Mass/Vol] 469 mg/dL Critically high 65 - 9 9 mg/dL [facility] Interpretation and review of laboratory results Abnormal [facility] Glucose [Mass/Vol] mg/dL Critically high 65 - 9 9 mg/dL [facility] Interpretation and review of laboratory results Abnormal [facility] Gold Topon 03-25-2024 Extra Tube Hold for add-ons. [facility] AND Paulino 03-25-2024 H AND P Normal [facility] LACTIC ACID, PLASMAon 2023 LACTIC ACID, PLASMA 2.1 mmol/L High 0.6-2.0 [facility] Comment on above: Performed By: #### 4 6053 ####[facility] [address] [place], [place] [address] Abbi Choudhary M.D. [id number] Lactate [Moles/Vol]on 2023 Interpretation and review of laboratory results Abnormal [facility] Lactic Acid, Plasmaon 2023 Lactate [Moles/Vol] 2.1 mmol/L High 0.6 - 2. 0 mmol/L [facility] Glucose [Mass/Vol] 117 mg/dL [address] Comment on above: Performed By: #### 4 6932 ####[facility] [address] [place], [place] [address] Abbi Choudhary M.D. [id number] Glucose [Mass/Vol] 142 mg/dL [address] Comment on above: Performed By: #### 4 6932 ####[facility] [address] [place], [place] [address] Abbi Choudhary M.D. [id number] Glucose [Mass/Vol] 148 mg/dL [address] Comment on above: Performed By: #### 4 6932 ####[facility] [address] [place], [place] [address] Abbi Choudhary M.D. [id number] Glucose [Mass/Vol] 286 mg/dL [address] Comment on above: Performed By: #### 4 6932 ####[facility] [address] [place], [place] [address] Abbi Choudhary M.D. [id number] Glucose [Mass/Vol] 343 mg/dL [address] Comment on above: Performed By: #### 4 6932 ####[facility] [address] [place], [place] [address] Abbi Choudhary M.D. [id number] Glucose [Mass/Vol] 469 mg/dL Off scale [address] Comment on above: Order Comment: Criti marquita result acted upon time of test. Test performed at bedside. Performed By: #### 4 6932 ####[facility] [address] [place], [place] [address] Abbi Choudhary M.D. [id number] POC GLUCOSE > Off scale [address] Comment on above: Order Comment: Criti marquita result acted upon time of test. Test performed at bedside. Performed By: #### 4 6932 ####[facility] [address] [place], [place] [address] Abbi Choudhary M.D. [id number] REFLEX LACTIC ACID, PLASMAon 03-25-2024 LACTIC ACID, PLASMA 1.2 mmol/L Normal 0.6-2.0 [facility] Comment on above: Performed By: #### L [id number] ####[facility] [address] [place], [place] [address] Abbi Choudhary M.D. [id number] LACTIC ACID, PLASMA 2.2 mmol/L High 0.6-2.0 [facility] Comment on above: Performed By: #### L [id number] ####[facility] [address] [place], [place] [address] Abbi Choudhary M.D. [id number] Reflex Lactic Acid, Plasmaon 03-25-2024 Interpretation and review of laboratory results Normal [facility] Lactate [Moles/Vol] 1.2 mmol/L 0.6 - 2. 0 mmol/L [facility] Interpretation and review of laboratory results Abnormal [facility] Lactate [Moles/Vol] 2.2 mmol/L High 0.6 - 2. 0 mmol/L [facility] URINALYSISon 03-25-2024 BACTERIA, URINE Rare Abnormal None Seen [facility] Comment on above: Order Comment: Micro scopic examination is performed on all urinalysis samples and only positive findings are reported. The test for blood on the chemical analytic portion of urinalysis may also be positive due to hemoglobinuria and myoglobinuria and if red blood cells are present they are quantified by microscopic examination. Performed By: #### 4 6625 ####[facility] [address] [place] [address] Abbi Choudhary M.D. [id number] BILIRUBIN, URINE Negative Normal Negative [facility] Comment on above: Order Comment: Micro scopic examination is performed on all urinalysis samples and only positive findings are reported. The test for blood on the chemical analytic portion of urinalysis may also be positive due to hemoglobinuria and myoglobinuria and if red blood cells are present they are quantified by microscopic examination. Performed By: #### 4 6625 ####[facility] [address] [place] [address] Abbi Choudhary M.D. [id number] BLOOD, URINE Moderate Abnormal Negative [facility] Comment on above: Order Comment: Micro scopic examination is performed on all urinalysis samples and only positive findings are reported. The test for blood on the chemical analytic portion of urinalysis may also be positive due to hemoglobinuria and myoglobinuria and if red blood cells are present they are quantified by microscopic examination. Performed By: #### 4 6625 ####[facility] [address] [place], [place] [address] Abbi Choudhary M.D. [id number] Clarity (U) Clear Normal Clear [facility] Comment on above: Order Comment: Micro scopic examination is performed on all urinalysis samples and only positive findings are reported. The test for blood on the chemical analytic portion of urinalysis may also be positive due to hemoglobinuria and myoglobinuria and if red blood cells are present they are quantified by microscopic examination. Performed By: #### 4 6625 ####[facility] [address] [place] [address] Abbi Choudhary M.D. [id number] Color (U) Yellow Normal Colorless, Yellow [facility] Comment on above: Order Comment: Micro scopic examination is performed on all urinalysis samples and only positive findings are reported. The test for blood on the chemical analytic portion of urinalysis may also be positive due to hemoglobinuria and myoglobinuria and if red blood cells are present they are quantified by microscopic examination. Performed By: #### 4 6625 ####[facility] [address] [place], [place] [address] Abbi Choudhary M.D. [id number] Glucose Ql (U) >=500 Abnormal Negative [facility] Comment on above: Order Comment: Micro scopic examination is performed on all urinalysis samples and only positive findings are reported. The test for blood on the chemical analytic portion of urinalysis may also be positive due to hemoglobinuria and myoglobinuria and if red blood cells are present they are quantified by microscopic examination. Performed By: #### 4 6625 ####[facility] [address] [place], [place] [address] Abbi Choudhary M.D. [id number] Ketones Ql (U) Negative Normal Negative [facility] Comment on above: Order Comment: Micro scopic examination is performed on all urinalysis samples and only positive findings are reported. The test for blood on the chemical analytic portion of urinalysis may also be positive due to hemoglobinuria and myoglobinuria and if red blood cells are present they are quantified by microscopic examination. Performed By: #### 4 6625 ####[facility] [address] [place], [place] [address] Abbi Choudhary M.D. [id number] Leukocyte esterase Test strip Ql (U) Negative Normal Negative [facility] Comment on above: Order Comment: Micro scopic examination is performed on all urinalysis samples and only positive findings are reported. The test for blood on the chemical analytic portion of urinalysis may also be positive due to hemoglobinuria and myoglobinuria and if red blood cells are present they are quantified by microscopic examination. Performed By: #### 4 6625 ####[facility] [address] [place], [place] [address] Abbi Choudhary M.D. [id number] MUCUS, URINE Rare Normal None Seen, Rare [facility] Comment on above: Order Comment: Micro scopic examination is performed on all urinalysis samples and only positive findings are reported. The test for blood on the chemical analytic portion of urinalysis may also be positive due to hemoglobinuria and myoglobinuria and if red blood cells are present they are quantified by microscopic examination. Performed By: #### 4 6625 ####[facility] [address] [place], [place] [address] Abbi Choudhary M.D. [id number] NITRITE, URINE Negative Normal Negative [facility] Comment on above: Order Comment: Micro scopic examination is performed on all urinalysis samples and only positive findings are reported. The test for blood on the chemical analytic portion of urinalysis may also be positive due to hemoglobinuria and myoglobinuria and if red blood cells are present they are quantified by microscopic examination. Performed By: #### 4 6625 ####[facility] [address] [place], [place] [address] Abbi Choudhary M.D. [id number] pH (U) 5.0 [pH] Normal 5.0-7.0 [facility] Comment on above: Order Comment: Micro scopic examination is performed on all urinalysis samples and only positive findings are reported. The test for blood on the chemical analytic portion of urinalysis may also be positive due to hemoglobinuria and myoglobinuria and if red blood cells are present they are quantified by microscopic examination. Performed By: #### 4 6625 ####[facility] [address] [place], [place] [address] Abbi Choudhary M.D. [id number] Protein (U) [Mass/Vol] 100 mg/dL Abnormal Negative [facility] Comment on above: Order Comment: Micro scopic examination is performed on all urinalysis samples and only positive findings are reported. The test for blood on the chemical analytic portion of urinalysis may also be positive due to hemoglobinuria and myoglobinuria and if red blood cells are present they are quantified by microscopic examination. Performed By: #### 4 6625 ####[facility] [address] [place], [place] [address] Abbi Choudhary M.D. [id number] RBC LM.HPF (Urine sed) [#/Area] 2 /[HPF] Normal 0-3 [facility] Comment on above: Order Comment: Micro scopic examination is performed on all urinalysis samples and only positive findings are reported. The test for blood on the chemical analytic portion of urinalysis may also be positive due to hemoglobinuria and myoglobinuria and if red blood cells are present they are quantified by microscopic examination. Performed By: #### 4 6625 ####[facility] [address] [place] [address] Abbi Choudhary M.D. [id number] Specific gravity (U) [Rel density] 1.021 Normal 1.005-1.025 [facility] Comment on above: Order Comment: Micro scopic examination is performed on all urinalysis samples and only positive findings are reported. The test for blood on the chemical analytic portion of urinalysis may also be positive due to hemoglobinuria and myoglobinuria and if red blood cells are present they are quantified by microscopic examination. Performed By: #### 4 6625 ####[facility] [address] [place] [address] Abbi Choudhary M.D. [id number] SQUAMOUS EPITHELIAL 2 /hpf Normal 0-4 [facility] Comment on above: Order Comment: Micro scopic examination is performed on all urinalysis samples and only positive findings are reported. The test for blood on the chemical analytic portion of urinalysis may also be positive due to hemoglobinuria and myoglobinuria and if red blood cells are present they are quantified by microscopic examination. Performed By: #### 4 6625 ####[facility] [address] [address] Abbi Choudhary M.D. [id number] UROBILINOGEN, URINE <2.0 Normal <2.0 [facility] Comment on above: Order Comment: Micro scopic examination is performed on all urinalysis samples and only positive findings are reported. The test for blood on the chemical analytic portion of urinalysis may also be positive due to hemoglobinuria and myoglobinuria and if red blood cells are present they are quantified by microscopic examination. Performed By: #### 4 6625 ####[facility] [address] [address] Abbi Choudhary M.D. [id number] WBC LM.HPF (Urine sed) [#/Area] 5 /[HPF] Normal 0-5 [facility] Comment on above: Order Comment: Micro scopic examination is performed on all urinalysis samples and only positive findings are reported. The test for blood on the chemical analytic portion of urinalysis may also be positive due to hemoglobinuria and myoglobinuria and if red blood cells are present they are quantified by microscopic examination. Performed By: #### 4 6625 ####[facility] [address] [place], [place] [address] Abbi Choudhary M.D. [id number] URINE AEROBIC CULTUREon URINE AEROBIC CULTURE Abnormal [facility] Comment on above: Performed By: #### 4 4053 ####[facility] [address], [place] [address] Swapnil Brewer M.D. [id number] UrinalysisOrdered By: Navneet Parr on 03-25-2024 Bacteria Auto Ql (U) Rare Abnormal None Se en /hpf [facility] Bilirubin Ql (U) Negative [facility] Clarity Refractometry automated (U) Clear Clear [facility] Color (U) Yellow Colorless, Yellow [facility] Epithelial cells.squamous Auto (Urine sed) [#/Area] 2 [facility] Glucose Auto test strip (U) [Mass/Vol] >=500 Abnormal Negative mg/dL [facility] Hemoglobin Auto test strip Ql (U) Moderate Abnormal Negative [facility] Interpretation and review of laboratory results Abnormal [facility] Ketones (U) [Mass/Vol] Negative Negative mg/dL [facility] Leukocyte esterase Auto test strip Ql (U) Negative Negative [facility] Mucus Auto (Urine sed) [#/Area] Rare None Seen, Rare /lpf [facility] Nitrite Auto test strip Ql (U) Negative Negative [facility] pH (U) 5 [pH] 5.0 - 7.0 [facility] Protein (U) [Mass/Vol] 100 mg/dL Abnormal Negative [facility] RBC Auto (Urine sed) [#/Area] 2 [facility] Specific gravity (U) [Rel density] 1.021 1.005 - 1.025 [facility] Urobilinogen (U) [Mass/Vol] mg/dL NINF - 2.0 mg/dL [facility] WBC Auto (Urine sed) [#/Area] 5 [facility] WOUND AEROBIC AND ANAEROBIC CULTUREon 03-25-2024 WOUND AEROBIC AND ANAEROBIC CULTURE CULTURE No Growth after 5 days GRAM STAIN RESULT Few WBC Many RBC No Organisms Seen Normal [facility] Comment on above: Performed By: #### 4 [id number] ####[facility] [address] [place] [address] Swapnil Brewer M.D. [id number] WOUND AEROBIC AND ANAEROBIC CULTURE Abnormal [facility] Comment on above: Performed By: #### 4 4287 ####[facility], [place] [address] Swapnil Brewer M.D. [id number] BASIC METABOLIC PANELon 10-3 Anion gap [Moles/Vol] 20 mmol/L Normal 10-20 [facility] Comment on above: Order Comment: [facility] has implemented the eGFR calculation approach that does not have a coefficient for race that conforms to the NKF-ASN Task Force Recommendations. Performed By: #### 4 6124 ####[facility] [address] [place], [place] [address] Abbi Choudhary M.D. [id number] Calcium [Mass/Vol] 9.3 mg/dL Normal 8.4-10.2 [facility] Comment on above: Order Comment: [facility] has implemented the eGFR calculation approach that does not have a coefficient for race that conforms to the NKF-ASN Task Force Recommendations. Performed By: #### 4 6124 #### LAB [address] [place], [place] [address] Abbi Choudhary M.D. [id number] Chloride [Moles/Vol] 97 mmol/L Low 98-108 [facility] Comment on above: Order Comment: [facility] has implemented the eGFR calculation approach that does not have a coefficient for race that conforms to the NKF-ASN Task Force Recommendations. Performed By: #### 4 6124 #### LAB [address] [place], [place] [address] Abbi Choudhary M.D. [id number] Creatinine [Mass/Vol] 1.44 mg/dL High 0.40-1.10 [facility] Comment on above: Order Comment: [facility] has implemented the eGFR calculation approach that does not have a coefficient for race that conforms to the NKF-ASN Task Force Recommendations. Performed By: #### 4 6124 ####[facility] [address] [place], [place] [address] Abbi Choudhary M.D. [id number] EGFR 46 mL/min/1.73 m2 Low >=60 [facility] Comment on above: Order Comment: [facility] has implemented the eGFR calculation approach that does not have a coefficient for race that conforms to the NKF-ASN Task Force Recommendations. Result Comment: Lorie mated GFR was calculated using the 2020 CKD-EPI creatinine equation. Performed By: #### 4 6124 ####[facility] [address], [place] [address]Alisia Choudhary M.D. [id number] Glucose [Mass/Vol] 646 mg/dL Off scale high 65-99 [facility] Comment on above: Order Comment: [facility] has implemented the eGFR calculation approach that does not have a coefficient for race that conforms to the NKF-ASN Task Force Recommendations. Performed By: #### 4 6124 ####[facility] [address] [place], [place] [address] Abbi Choudhary M.D. [id number] HCO3 (Bld) [Moles/Vol] 22 mmol/L Normal 21-32 [facility] Comment on above: Order Comment: [facility] has implemented the eGFR calculation approach that does not have a coefficient for race that conforms to the NKF-ASN Task Force Recommendations. Performed By: #### 4 6124 ####[facility] [address] [place], [place] [address] Abbi Choudhary M.D. [id number] Potassium [Moles/Vol] 4.6 mmol/L Normal 3.5-5.1 [facility] Comment on above: Order Comment: [facility] has implemented the eGFR calculation approach that does not have a coefficient for race that conforms to the NKF-ASN Task Force Recommendations. Performed By: #### 4 6124 ####[facility] [address] [place], [place] [address] Abbi Choudhary M.D. [id number] Sodium [Moles/Vol] 134 mmol/L Low 135-145 [facility] Comment on above: Order Comment: [facility] has implemented the eGFR calculation approach that does not have a coefficient for race that conforms to the NKF-ASN Task Force Recommendations. Performed By: #### 4 6124 ####[facility] [address] [place], [place] [address] Abbi Choudhary M.D. [id number] Urea nitrogen [Mass/Vol] 24 mg/dL Normal 8- [facility] Comment on above: Order Comment: [facility] has implemented the eGFR calculation approach that does not have a coefficient for race that conforms to the NKF-ASN Task Force Recommendations. Performed By: #### 4 6124 ####[facility] [address] [place], [place] [address] Abbi Choudhary M.D. [id number] Urea nitrogen/Creatinine [Mass ratio] 16.7 mg/mg Normal 10.0-20.0 [facility] Comment on above: Order Comment: [facility] has implemented the eGFR calculation approach that does not have a coefficient for race that conforms to the NKF-ASN Task Force Recommendations. Performed By: #### 4 6124 ####[facility] [address] [place], [place] [address] Abbi Choudhary M.D. [id number] BLOOD GAS, VENOUSon 03-24-20 24 BASE EXCESS, VENOUS -3.8 Low -2.0-2.0 [facility] Comment on above: Performed By: #### 4 6733 ####[facility] [address] [place], [place] [address] Abbi Choudhary M.D. [id number] HCO3 (Bld) [Moles/Vol] 22.3 mmol/L Low 24.0-28.0 [facility] Comment on above: Performed By: #### 4 6733 ####[facility] [address] [place], [place] [address] Abbi Choudhary M.D. [id number] Hematocrit (Bld) [Volume fraction] 40.0 % Normal 36.0-46.0 [facility] Comment on above: Performed By: #### 4 6733 ####[facility] [address] [place], [place] [address] Abbi Choudhary M.D. [id number] Hemoglobin (Bld) [Mass/Vol] 13.0 g/dL Normal 12.0-16.0 [facility] Comment on above: Performed By: #### 4 6733 ####[facility] [address] [address] Abbi Choudhary M.D. [id number] Oxygen saturation in Blood 69.9 % Normal 40.0-70.0 [facility] Comment on above: Performed By: #### 4 6733 ####[facility] [address] [address] Abbi Choudhary M.D. [id number] PCO2 VENOUS 47.4 mm Hg Normal 41.0-51.0 [facility] Comment on above: Performed By: #### 4 [id number] ####[facility] [address] [address] Abbi Choudhary M.D. [id number] PH VENOUS 7.30 Low 7.32-7.42 [facility] Comment on above: Performed By: #### 4 6733 ####[facility] [address] [address] Abbi Choudhary M.D. [id number] PO2 VENOUS 41 mm Hg High 25-40 [facility] Comment on above: Performed By: #### 4 6733 ####[facility] [address] [place], [place] [address] Abbi Choudhary M.D. [id number] Basic metabolic 2000 panelOr dered By: Kendra Bae on 03-24-2024 Anion gap [Moles/Vol] 20 mmol/L 10 - 2 0 mmol/L [facility] Calcium [Mass/Vol] 9.3 mg/dL 8.4 - 10. 2 mg/dL [facility] Chloride [Moles/Vol] 97 mmol/L Low 98 - 10 8 mmol/L [facility] Creatinine [Mass/Vol] 1.44 mg/dL High 0.40 - 1.10 mg/dL [facility] GFR/1.73 sq M.predicted CKD-EPI (S/P/Bld) [Vol rate/Area] 46 Low - PINF [facility] Glucose [Mass/Vol] 646 mg/dL Critically high 65 - 9 9 mg/dL [facility] HCO3 [Moles/Vol] 22 mmol/L 21 - 32 mmol/L [facility] Interpretation and review of laboratory results Abnormal [facility] Potassium [Moles/Vol] 4.6 mmol/L 3.5 - 5.1 mmol/L [facility] Sodium [Moles/Vol] 134 mmol/L Low 135 - 145 mmol/L [facility] Urea nitrogen [Mass/Vol] 24 mg/dL 8 - 25 mg/dL [facility] Urea nitrogen/Creatinine [Mass ratio] 16.7 mg/mg 10.0 - 20.0 [facility] CBC Auto Differentialon 02-24 Basophils (Bld) [#/Vol] 0.06 10*3/uL [facility] Basophils/100 WBC (Bld) 0.6 % [facility] Eosinophils (Bld) [#/Vol] 0.33 10*3/uL [facility] Eosinophils/100 WBC (Bld) 3.5 % [facility] Erythrocyte distribution width (RBC) [Entitic vol] 13 % 11.6 - 14.8 % [facility] Hematocrit (Bld) [Volume fraction] 37.6 % 36.0 - 46.0 % [facility] Hemoglobin (Bld) [Mass/Vol] 12.5 g/dL 12.0 - 16.0 g/dL [facility] Immature granulocytes (Bld) [#/Vol] 0.05 10*3/uL [facility] Immature granulocytes/100 WBC (Bld) 0.5 % [facility] Interpretation and review of laboratory results Abnormal [facility] Lymphocytes (Bld) [#/Vol] 1.34 10*3/uL [facility] Lymphocytes/100 WBC (Bld) 14 % [facility] MCH (RBC) [Entitic mass] 30.3 pg 26.0 - 34.0 pg [facility] MCHC (RBC) [Mass/Vol] 33.2 g/dL 31.0 - 37.0 g/dL [facility] MCV (RBC) [Entitic vol] 91 fL 80.0 - 100.0 fL [facility] Monocytes (Bld) [#/Vol] 0.43 10*3/uL [facility] Monocytes/100 WBC (Bld) 4.5 % [facility] Neutrophils (Bld) [#/Vol] 7.35 10*3/uL High [facility] Neutrophils/100 WBC (Bld) 76.9 % [facility] Nucleated RBC (Bld) [#/Vol] 0 10*3/uL [facility] Nucleated RBC/100 WBC (Bld) [Ratio] 0 % [facility] Platelet mean volume (Bld) [Entitic vol] 9.4 fL 9.4 - 12.4 fL [facility] Platelets (Bld) [#/Vol] 371 10*3/uL [facility] RBC (Bld) [#/Vol] 4.13 10*6/uL [facility] WBC (Bld) [#/Vol] 9.56 10*3/uL [facility] CBC WITH AUTO DIFFERENTIALon 03-24-2024 AUTO NRBC 0.0 % [facility] Comment on above: Performed By: #### L [id number] ####[facility] [address] [place], [place] [address] Abbi Choudhary M.D. [id number] AUTO NRBC ABS COUNT 0.00 K/mcL Normal 0.00-0.00 [facility] Comment on above: Performed By: #### L [id number] ####[facility] [address] [place], [place] [address] Abbi Choudhary M.D. [id number] BASOPHILS ABSOLUTE COUNT 0.06 K/mcL Normal 0.00-0.30 [facility] Comment on above: Performed By: #### L [id number] ####[facility] [address] [place], [place] [address] Abbi Choudhary M.D. [id number] Basophils/100 WBC (Bld) 0.6 % Normal [facility] Comment on above: Performed By: #### L [id number] ####[facility] [address] [place], [place] [address] Abbi Choudhary M.D. [id number] Eosinophils (Bld) [#/Vol] 0.33 10*3/uL Normal 0.00-0.50 [facility] Comment on above: Performed By: #### L [id number] ####[facility] [address] [address] Abbi Choudhary M.D. [id number] Eosinophils/100 WBC (Bld) 3.5 % Normal [facility] Comment on above: Performed By: #### L [id number] ####[facility] [address] [address] Abbi Choudhary M.D. [id number] Erythrocyte distribution width (RBC) [Ratio] 13.0 % Normal 11.6-14.8 [facility] Comment on above: Performed By: #### L [id number] ####[facility] [address] [address] Abbi Choudhary M.D. [id number] Hematocrit (Bld) [Volume fraction] 37.6 % Normal 36.0-46.0 [facility] Comment on above: Performed By: #### L [id number] ####[facility] [address] [address] Abbi Choudhary M.D. [id number] Hemoglobin (Bld) [Mass/Vol] 12.5 g/dL Normal 12.0-16.0 [facility] Comment on above: Performed By: #### L [id number] ####[facility] [address] [address] Abbi Choudhary M.D. [id number] IG ABSOLUTE 0.05 K/mcL Normal 0.00-0.30 [facility] Comment on above: Performed By: #### L [id number] ####[facility] [address] [address] Abbi Choudhary M.D. [id number] IG PERCENT 0.50 % Normal [facility] Comment on above: Result Comment: The IG parameter is the percentage of metamyelocytes, myelocytes and promyelocytes. An immature granulocyte count (IG) of 1% or more suggests the possibility of infection, an IG count of 3% is very likely related to an infection. Performed By: #### L [id number] ####[facility] [address] [place], [place] [address] Abbi Choudhary M.D. [id number] Lymphocytes (Bld) [#/Vol] 1.34 10*3/uL Normal 0.90-4.00 [facility] Comment on above: Performed By: #### L [id number] ####[facility] [address] [place], [place] [address] Abbi Choudhary M.D. [id number] Lymphocytes/100 WBC (Bld) 14.0 % Normal [facility] Comment on above: Performed By: #### L [id number] ####[facility] [address] [place], [place] [address] Abbi Choudhary M.D. [id number] MCH (RBC) [Entitic mass] 30.3 pg Normal 26.0-34.0 [facility] Comment on above: Performed By: #### L [id number] ####[facility] [address] [place], [place] [address] Abbi Choudhary M.D. [id number] MCV (RBC) [Entitic vol] 91.0 fL Normal 80.0-100.0 [facility] Comment on above: Performed By: #### L [id number] ####[facility] [address] [place], [place] [address] Abbi Choudhary M.D. [id number] MEAN CORPUSCULAR HEMOGLOBIN CONC 33.2 g/dL Normal 31.0-37.0 [facility] Comment on above: Performed By: #### L [id number] ####[facility] [address] [address] Abbi Choudhary M.D. [id number] Monocytes (Bld) [#/Vol] 0.43 10*3/uL Normal 0.30-0.90 [facility] Comment on above: Performed By: #### L [id number] ####[facility] [address] [place], [place] [address] Abbi Choudhary M.D. [id number] Monocytes/100 WBC (Bld) 4.5 % Normal [facility] Comment on above: Performed By: #### L [id number] ####[facility] [address] [place], [place] [address] Abbi Choudhary M.D. [id number] NEUTROPHILS ABSOLUTE COUNT 7.35 K/mcL High 1.70-7.00 [facility] Comment on above: Performed By: #### L [id number] ####[facility] [address] [place], [place] [address] Abbi Choudhary M.D. [id number] Neutrophils/100 WBC (Bld) 76.9 % Normal [facility] Comment on above: Performed By: #### L [id number] ####[facility] [address] [place], [place] [address] Abbi Choudhary M.D. [id number] Platelet mean volume (Bld) [Entitic vol] 9.4 fL Normal 9.4-12.4 [facility] Comment on above: Performed By: #### L [id number] ####[facility] [address] [place], [place] [address] bAbi Choudhary M.D. [id number] Platelets (Bld) [#/Vol] 371 10*3/uL Normal 150-400 [facility] Comment on above: Performed By: #### L [id number] ####[facility] [address] [place], [place] [address] Abbi Choudhary M.D. [id number] RBC (Bld) [#/Vol] 4.13 10*6/uL Normal 4.00-5.20 [facility] Comment on above: Performed By: #### L [id number] ####[facility] [address] [place], [place] [address] Abbi Choudhary M.D. [id number] WBC (Bld) [#/Vol] 9.56 10*3/uL Normal 4.50-11.00 [facility] Comment on above: Performed By: #### L [id number] ####[facility] [address] [place], [place] [address] Abbi Choudhary M.D. [id number] CRP [Mass/Vol]on 10-31-2024 Interpretation and review of laboratory results Abnormal [facility] CRP, INFLAMMATIONon 03-24-20 CRP [Mass/Vol] 15.1 mg/L High 0.0-10.0 [facility] Comment on above: Performed By: #### 4 5334 ####[facility] [address] [place], [place] [address] Abbi Choudhary M.D. [id number] CRP, Inflammationon 03-24-20 CRP [Mass/Vol] 15.1 mg/L High 0.0 - 10.0 mg/L [facility] ED Prov Noteon 03-24-2024 ED Prov Note Normal [facility] ESR Westergren method (Bld) [Velocity]on 03-24-2024 ESR (Bld) [Velocity] 62 mm/h High [facility] Interpretation and review of laboratory results Abnormal [facility] Gas panel (BldV)on Base excess Calc (BldV) [Moles/Vol] -3.8000 mmol/L Low -2.0 - 2.0 [facility] CO2 (BldV) [Partial pressure] 47.4 mm[Hg] [facility] HCO3 (Bld) [Moles/Vol] 22.3 mmol/L Low 24.0 - 28.0 mmol/L [facility] Hematocrit (BldA) [Volume fraction] 40 % 36.0 - 46.0 % [facility] Hemoglobin (Bld) [Mass/Vol] 13 g/dL 12.0 - 16.0 g/dL [facility] Interpretation and review of laboratory results Abnormal [facility] Oxygen (BldV) [Partial pressure] 41 mm[Hg] High [facility] Oxygen saturation in Venous blood 69.9 % 40.0 - 70.0 % [facility] pH (BldV) 7.3 [pH] Low 7.32 - 7.42 [facility] HEPATIC FUNCTION PANELon Albumin [Mass/Vol] 4.2 g/dL Normal 3.2-5.2 [facility] Comment on above: Performed By: #### 4 5866 ####[facility] [address] [place], [place] [address] Abbi Choudhary M.D. [id number] ALP [Catalytic activity/Vol] 139 U/L Normal 40-150 [facility] Comment on above: Performed By: #### 4 5866 ####[facility] [address] [place], [place] [address] Abbi Choudhary M.D. [id number] ALT [Catalytic activity/Vol] 16 U/L Normal 0-35 U/L [facility] Comment on above: Performed By: #### 4 5866 ####[facility] [address] [place], [place] [address] Abbi Choudhary M.D. [id number] AST [Catalytic activity/Vol] 16 U/L Normal 0-35 U/L [facility] Comment on above: Performed By: #### 4 5866 ####[facility] [address] [place], [place] [address] Abbi Choudhary M.D. [id number] Bilirubin [Mass/Vol] 0.5 mg/dL Normal 0.0-1.3 [facility] Comment on above: Performed By: #### 4 5866 ####[facility] [address] [place] [address] Abbi Choudhary M.D. [id number] BILIRUBIN, DIRECT < Normal 0.0-0.4 [facility] Comment on above: Performed By: #### 4 5866 ####[facility] [address] [place], [place] [address] Abbi Choudhary M.D. [id number] Protein [Mass/Vol] 8.1 g/dL High 6.0-8.0 [facility] Comment on above: Performed By: #### 4 5866 ####[facility] [address] [place], [place] [address] Abbi Choudhary M.D. [id number] Hepatic function 2000 panelo n 03-24-2024 Albumin [Mass/Vol] 4.2 g/dL 3.2 - 5.2 g/dL [facility] ALP [Catalytic activity/Vol] 139 U/L 40 - 150 U/L [facility] ALT [Catalytic activity/Vol] 16 U/L 0-35 U/L [facility] AST [Catalytic activity/Vol] 16 U/L 0-35 U/L [facility] Bilirubin [Mass/Vol] 0.5 mg/dL 0.0 - 1 .3 mg/dL [facility] Bilirubin.conjugated [Mass/Vol] mg/dL 0.0 - 0.4 mg/dL [facility] Interpretation and review of laboratory results Abnormal [facility] Protein [Mass/Vol] 8.1 g/dL High 6.0 - 8.0 g/dL [facility] LACTIC ACID, WHOLE BLOODon 1 LACTIC ACID, WHOLE BLOOD 3.0 mmol/L High 0.6-2.0 [facility] Comment on above: Performed By: #### 1 1929 ####[facility] [address] [place], [place] [address] Abbi Choudhary M.D. [id number] Lactate (Bld) [Moles/Vol]on 03-24-2024 Interpretation and review of laboratory results Abnormal [facility] Lactate [Moles/Vol] 3 mmol/L High 0.6 - 2. 0 mmol/L [facility] Light Blue Topon 03-24-2024 Extra Tube Hold for add-ons. [facility] No Panel Informationon 03-24 [facility] SEDIMENTATION RATEon 024 SEDIMENTATION RATE, ERYTHROCYTE 62 mm/hr High 0-20 [facility] Comment on above: Performed By: #### 4 6477 ####[facility] [address] [place], [place] [address] Abbi Choudhary M.D. [id number] TROPONINon 03-24-2024 BASELINE TROPONIN T NG/L 22 ng/L Off scale high <=14 [facility] Comment on above: Performed By: #### 4 6608 ####[facility] [address] [place], [place] [address]Alisia Choudhary M.D. [id number] TROPONIN T INTERPRETATION Possible acute cardiac injury. Normal [facility] Comment on above: Performed By: #### 4 6608 ####[facility] [address] [place], [place] [address] Abbi Choudhary M.D. [id number] Troponinon 03-24-2024 Interpretation and review of laboratory results Abnormal [facility] Troponin T 22 ng/L Critically high NINF - 14 ng/L [facility] Troponin T Interpretation Possible acute cardiac injury. [facility] XR Finger - left 2 Viewson 1 0-31-2024 GE RIS GE RIS [facility] Radiology Study observation (narrative) [facility] XR Finger - left 2 ViewsOrde red By: Mayco Cortez on 03-24-2024 [facility] Work Phone: XR TOE(S) LEFT 2+ VIEWSon XR TOE(S) LEFT 2+ VIEWS Normal [facility] Comment on above: Order Comment: Injur y/Trauma [...] for children. Performed By: #### 4 96, [id number] #### [facility] [address], [address] [place] [id number] Mailing Machine Assistant: Dean Maddox MD VITAMIN D,25-[place],TOTAL,IAon 1 VITAMIN [...] D, (D2,D3), LC/MS/MS is recommended: order code 77867 (patients >2yrs). See Note 1 Note 1 For additional information, please refer to [email or web address] Technologies/faq/[id number] (This link is being provided for informational/ educational purposes only.) Performed By: #### 4 96, [id number] #### [facility] [address], [address] [place] [address] Mailing Machine Assistant: Dean Maddox MD B12/FOLATEon 02-11-2024 Cobalamin (Vitamin B12) [Mass/Vol] 203 pg/mL Low 232-1245 [facility] Comment on above: Performed By: #### 4 6967 ####[facility] [address] [place], [place] [address] Abbi Choudhary M.D. [id number] FOLATE 9.1 ng/mL Normal 3.1-17.5 [facility] Comment on above: Result Comment: Defi cient <2.2Borderline 2.2 - 3.0Excessive >17.5 Performed By: #### 4 6967 ####[facility] [address] [place], [place] [address] Abbi Choudhary M.D. [id number] B12/Folateon 02-11-2024 Cobalamin (Vitamin B12) [Mass/Vol] 203 pg/mL Low 232 - 1245 pg/mL [facility] Folate [Mass/Vol] 9.1 ng/mL 3.1 - 17.5 ng/mL [facility] Comment on above: Deficient <2.2 Borderline 2.2 - 3.0 Excessive >17.5 Interpretation and review of laboratory results Abnormal [facility] HEPATIC FUNCTION PANELon Albumin [Mass/Vol] 4.0 g/dL Normal 3.2-5.2 [facility] Comment on above: Performed By: #### 4 5866 ####[facility] [address] [place], [place] [address] Abbi Choudhary M.D. [id number] ALP [Catalytic activity/Vol] 139 U/L Normal 40-150 [facility] Comment on above: Performed By: #### 4 5866 ####[facility] [address] [place], [place] [address] Abbi Choudhary M.D. [id number] ALT [Catalytic activity/Vol] 13 U/L Normal 0-35 U/L [facility] Comment on above: Performed By: #### 4 5866 ####[facility] [address] [place], [place] [address] Abbi Choudhary M.D. [id number] AST [Catalytic activity/Vol] 17 U/L Normal 0-35 U/L [facility] Comment on above: Result Comment: Slig htly Hemolyzed Performed By: #### 4 5866 ####[facility] [address] [place], [place] [address] Abbi Choudhary M.D. [id number] Bilirubin [Mass/Vol] 0.4 mg/dL Normal 0.0-1.3 [facility] Comment on above: Performed By: #### 4 5866 ####[facility] [address] [place], [place] [address] Abbi Choudhary M.D. [id number] BILIRUBIN, DIRECT < Normal 0.0-0.4 [facility] Comment on above: Performed By: #### 4 5866 ####[facility] [address] [place], [place] [address] Abbi Choudhary M.D. [id number] Protein [Mass/Vol] 7.3 g/dL Normal 6.0-8.0 [facility] Comment on above: Performed By: #### 4 5866 ####[facility] [address] [place], [place] [address] Abbi Cohudhary M.D. [id number] Hepatic function 2000 panelO rdered By: Shy Chou on 02-11-2024 Albumin [Mass/Vol] 4.0 g/dL 3.2 - 5.2 g/dL [facility] ALP [Catalytic activity/Vol] 139 U/L 40 - 150 U/L [facility] ALT [Catalytic activity/Vol] 13 U/L 0-35 U/L [facility] AST [Catalytic activity/Vol] 17 U/L 0-35 U/L [facility] Comment on above: Slightly Hemolyzed Bilirubin [Mass/Vol] 0.4 mg/dL 0.0 - 1 .3 mg/dL [facility] Bilirubin.conjugated [Mass/Vol] mg/dL 0.0 - 0.4 mg/dL [facility] Interpretation and review of laboratory results Normal [facility] Protein [Mass/Vol] 7.3 g/dL 6.0 - 8.0 g/dL [facility] T4, FREEon 02-11-2024 Free T4 [Mass/Vol] 0.9 ng/dL Normal 0.7-1.7 [facility] Comment on above: Performed By: #### 4 6567 ####[facility] [address] [place] [address] Abbi Choudhary M.D. [id number] TSH WITH REFLEX FREE T4on TSH Qn 4.58 m[IU]/L High 0.27-4.20 [facility] Comment on above: Performed By: #### 4 6612 ####[facility] [address] [place] [address] Abbi Choudhary M.D. [id number] CBCon 01-18-2024 AUTO NRBC 0.0 % Normal [facility] Comment on above: Performed By: #### 4 5218 ####[facility] [address] [place] [address] Abbi Choudhary M.D. [id number] AUTO NRBC ABS COUNT 0.00 K/mcL Normal 0.00-0.00 [facility] Comment on above: Performed By: #### 4 5218 ####[facility] [address] [place] [address] Abbi Choudhary M.D. [id number] Erythrocyte distribution width (RBC) [Ratio] 12.9 % Normal 11.6-14.8 [facility] Comment on above: Performed By: #### 4 5218 ####[facility] [address] [place], [place] [address] Abbi Choudhary M.D. [id number] Hematocrit (Bld) [Volume fraction] 29.3 % Low 36.0-46.0 [facility] Comment on above: Performed By: #### 4 5218 ####[facility] [address] [place] [address] Abbi Choudhary M.D. [id number] Hemoglobin (Bld) [Mass/Vol] 9.1 g/dL Low 12.0-16.0 [facility] Comment on above: Performed By: #### 4 5218 ####[facility] [address] [place], [place] [address] Abbi Choudhary M.D. [id number] MCH (RBC) [Entitic mass] 30.2 pg Normal 26.0-34.0 [facility] Comment on above: Performed By: #### 4 5218 ####[facility] [address] [place], [place] [address] Abbi Choudhary M.D. [id number] MCV (RBC) [Entitic vol] 97.3 fL Normal 80.0-100.0 [facility] Comment on above: Performed By: #### 4 [id number] ####[facility] [address] [place], [place] [address] Abbi Choudhary M.D. [id number] MEAN CORPUSCULAR HEMOGLOBIN CONC 31.1 g/dL Normal 31.0-37.0 [facility] Comment on above: Performed By: #### 4 5218 ####[facility] [address] [place], [place] [address] Abbi Choudhary M.D. [id number] Platelet mean volume (Bld) [Entitic vol] 9.1 fL Low 9.4-12.4 [facility] Comment on above: Performed By: #### 4 5218 ####[facility] [address] [place], [place] [address] Abbi Choudhary M.D. [id number] Platelets (Bld) [#/Vol] 255 10*3/uL Normal 150-400 [facility] Comment on above: Performed By: #### 4 5218 ####[facility] [address] [place], [place] [address] Abbi Choudhary M.D. [id number] RBC (Bld) [#/Vol] 3.01 10*6/uL Low 4.00-5.20 [facility] Comment on above: Performed By: #### 4 5218 ####[facility] [address] [place], [place] [address] Abbi Choudhary M.D. [id number] WBC (Bld) [#/Vol] 7.67 10*3/uL Normal 4.50-11.00 [facility] Comment on above: Performed By: #### 4 [id number] ####[facility] [address] [place] [address] Abbi Choudhary M.D. [id number] CBC panel Auto (Bld)on 01-17 Erythrocyte distribution width (RBC) [Entitic vol] 12.9 % 11.6 - 14.8 % [facility] Hematocrit (Bld) [Volume fraction] 29.3 % Low 36.0 - 46.0 % [facility] Hemoglobin (Bld) [Mass/Vol] 9.1 g/dL Low 12.0 - 16.0 g/dL [facility] Interpretation and review of laboratory results Abnormal [facility] MCH (RBC) [Entitic mass] 30.2 pg 26.0 - 34.0 pg [facility] MCHC (RBC) [Mass/Vol] 31.1 g/dL 31.0 - 37.0 g/dL [facility] MCV (RBC) [Entitic vol] 97.3 fL 80.0 - 100.0 fL [facility] Nucleated RBC (Bld) [#/Vol] 0.00 10*3/uL [facility] Nucleated RBC/100 WBC (Bld) [Ratio] 0.0 % [facility] Platelet mean volume (Bld) [Entitic vol] 9.1 fL Low 9.4 - 12.4 fL [facility] Platelets (Bld) [#/Vol] 255 10*3/uL [facility] RBC (Bld) [#/Vol] 3.01 10*6/uL Low [facility] WBC (Bld) [#/Vol] 7.67 10*3/uL [facility] eah [facility] Disch Summon 01-18-2024 Disch Summ Normal [facility] Glucose (Bld) [Mass/Vol]on 0 01-18-2024 Glucose [Mass/Vol] 82 mg/dL 65 - 99 mg/dL [facility] Interpretation and review of laboratory results Normal [facility] Glucose [Mass/Vol] 71 mg/dL 65 - 99 mg/dL [facility] Interpretation and review of laboratory results Normal [facility] Glucose [Mass/Vol] 66 mg/dL 65 - 99 mg/dL [facility] Interpretation and review of laboratory results Normal [facility] Glucose [Mass/Vol] 82 mg/dL Normal 65-99 [facility] Comment on above: Performed By: #### 4 6932 ####[facility] [address] [place], [place] [address] Abbi Choudhary M.D. [id number] Glucose [Mass/Vol] 71 mg/dL Normal 65- [facility] Comment on above: Performed By: #### 4 6932 ####[facility] [address] [place], [place] [address] Abbi Choudhary M.D. [id number] Glucose [Mass/Vol] 66 mg/dL Normal 65-[address] [place] [address] Comment on above: Performed By: #### 4 6932 ####[facility] [address] [place], [place] [address] Abbi Choudhary M.D. [id number] RENAL FUNCTION PANEL 01-17 Albumin [Mass/Vol] 3.2 g/dL Normal 3.2-5.2 [facility] Comment on above: Order Comment: [facility] Services has implemented the eGFR calculation approach that does not have a coefficient for race that conforms to the NKF-ASN Task Force Recommendations. Performed By: #### 4 6449 ####[facility] [address] [place], [place] [address] Abbi Choudhary M.D. [id number] Anion gap [Moles/Vol] 12 mmol/L Normal 10-20 [facility] Comment on above: Order Comment: [facility] has implemented the eGFR calculation approach that does not have a coefficient for race that conforms to the NKF-ASN Task Force Recommendations. Performed By: #### 4 6449 ####[facility] [address] [place], [place] [address] Abbi Choudhary M.D. [id number] Calcium [Mass/Vol] 8.6 mg/dL Normal 8.4-10.2 [facility] Comment on above: Order Comment: [facility] Services has implemented the eGFR calculation approach that does not have a coefficient for race that conforms to the NKF-ASN Task Force Recommendations. Performed By: #### 4 6449 ####[facility] [address] [place], [place] [address] Abbi Choudhary M.D. [id number] Chloride [Moles/Vol] 112 mmol/L High 98-108 [facility] Comment on above: Order Comment: [facility] Services has implemented the eGFR calculation approach that does not have a coefficient for race that conforms to the NKF-ASN Task Force Recommendations. Performed By: #### 4 6449 ####[facility] [address] [place], [place] [address] Abbi Choudhary M.D. [id number] Creatinine [Mass/Vol] 1.67 mg/dL High 0.40-1.10 [facility] Comment on above: Order Comment: [facility] Services has implemented the eGFR calculation approach that does not have a coefficient for race that conforms to the NKF-ASN Task Force Recommendations. Performed By: #### 4 6449 ####[facility] [address] [place], [place] [address] Abbi Choudhary M.D. [id number] EGFR 38 mL/min/1.73 m2 Low >=60 [facility] Comment on above: Order Comment: [facility] Services has implemented the eGFR calculation approach that does not have a coefficient for race that conforms to the NKF-ASN Task Force Recommendations. Result Comment: Lorie mated GFR was calculated using the 2020 CKD-EPI creatinine equation. Performed By: #### 4 6449 ####[facility] [address] [place], [place] [address] Abbi Choudhary M.D. [id number] Glucose [Mass/Vol] 78 mg/dL Normal 65-99 [facility] Comment on above: Order Comment: [facility] Services has implemented the eGFR calculation approach that does not have a coefficient for race that conforms to the NKF-ASN Task Force Recommendations. Performed By: #### 4 6449 ####[facility] [address] [place], [place] [address] Abbi Choudhary M.D. [id number] HCO3 (Bld) [Moles/Vol] 24 mmol/L Normal 21-32 [facility] Comment on above: Order Comment: [facility] has implemented the eGFR calculation approach that does not have a coefficient for race that conforms to the NKF-ASN Task Force Recommendations. Performed By: #### 4 6449 ####[facility] [address] [place], [place] [address] Abbi Choudhary M.D. [id number] Phosphate [Mass/Vol] 3.9 mg/dL Normal 2.7-4.5 [facility] Comment on above: Order Comment: [facility] Laboratory [facility] has implemented the eGFR calculation approach that does not have a coefficient for race that conforms to the NKF-ASN Task Force Recommendations. Performed By: #### 4 6449 ####[facility] [address] [place], [place] [address] Abbi Choudhary M.D. [id number] Potassium [Moles/Vol] 4.6 mmol/L Normal 3.5-5.1 [facility] Comment on above: Order Comment: [facility] Laboratory [facility] has implemented the eGFR calculation approach that does not have a coefficient for race that conforms to the NKF-ASN Task Force Recommendations. Performed By: #### 4 6449 ####[facility] [address] [place], [place] [address] Abbi Choudhary M.D. [id number] Sodium [Moles/Vol] 143 mmol/L Normal 135-145 [facility] Comment on above: Order Comment: [facility] has implemented the eGFR calculation approach that does not have a coefficient for race that conforms to the NKF-ASN Task Force Recommendations. Performed By: #### 4 6449 ####[facility] [address] [place], [place] [address] Abbi Choudhary M.D. [id number] Urea nitrogen [Mass/Vol] 34 mg/dL High 8-25 [facility] Comment on above: Order Comment: [facility] Laboratory [facility] has implemented the eGFR calculation approach that does not have a coefficient for race that conforms to the NKF-ASN Task Force Recommendations. Performed By: #### 4 6449 ####[facility] [address] [place], [place] [address]Alisia Choudhary M.D. [id number] Urea nitrogen/Creatinine [Mass ratio] 20.4 mg/mg High 10.0-20.0 [facility] Comment on above: Order Comment: [facility] has implemented the eGFR calculation approach that does not have a coefficient for race that conforms to the NKF-ASN Task Force Recommendations. Performed By: #### 4 6449 ####[facility] [address] [place] [address] Abbi Choudhary M.D. [id number] [facility] Albumin [Mass/Vol] 3.2 g/dL 3.2 - 5.2 g/dL [facility] Anion gap [Moles/Vol] 12 mmol/L 10 - 2 0 mmol/L [facility] Calcium [Mass/Vol] 8.6 mg/dL 8.4 - 10. 2 mg/dL [facility] Chloride [Moles/Vol] 112 mmol/L High 98 - 10 8 mmol/L [facility] Creatinine [Mass/Vol] 1.67 mg/dL High 0.40 - 1.10 mg/dL [facility] GFR/1.73 sq M.predicted CKD-EPI (S/P/Bld) [Vol rate/Area] 38 [facility] Comment on above: Estimated GFR was ca lculated using the 2020 CKD-EPI creatinine equation. Glucose [Mass/Vol] 78 mg/dL 65 - 99 mg/dL [facility] HCO3 [Moles/Vol] 24 mmol/L 21 - 32 mmol/L [facility] Interpretation and review of laboratory results Abnormal [facility] Phosphate [Mass/Vol] 3.9 mg/dL 2.7 - 4 .5 mg/dL [facility] Potassium [Moles/Vol] 4.6 mmol/L 3.5 - 5.1 mmol/L [facility] Sodium [Moles/Vol] 143 mmol/L 135 - 145 mmol/L [facility] Urea nitrogen [Mass/Vol] 34 mg/dL High 8 - 25 mg/dL [facility] Urea nitrogen/Creatinine [Mass ratio] 20.4 mg/mg High 10.0 - 20.0 [facility] Laborator y Services has implemented the eGFR calculation approach that does not have a coefficient for race that conforms to the NKF-ASN Task Force Recommendations. [facility] US Kidney - bilateral and Ur inary bladderon 01-18-2024 1. Normal renal ultrasound. [employer] Workstation ID: [id number] EXAMINATION: US RENAL AND BLADDER HISTORY: SOLO [...] bladder filling defects. Bladder volume: [address] [facility] Anant Bonds MD - 01/18/2024 EXAMINATION: US [...] 80 mL IMPRESSION: 1. Normal renal ultrasound. [employer]andseek Workstation ID: [id number] [facility] US Kidney - bilateral and Ur inary bladderOrdered By: Anant Bonds on 01-18-2024 [facility] Work Phone: CBCon 01-17-2024 AUTO NRBC 0.0 % Normal [facility] Comment on above: Performed By: #### 4 [id number] ####[facility] [address] [place] [address] Abbi Choudhary M.D. [id number] AUTO NRBC ABS COUNT 0.00 K/mcL Normal 0.00-0.00 [facility] Comment on above: Performed By: #### 4 5218 ####[facility] [address] [place], [place] [address] Abbi Choudhary M.D. [id number] Erythrocyte distribution width (RBC) [Ratio] 13.1 % Normal 11.6-14.8 [facility] Comment on above: Performed By: #### 4 5218 ####[facility] [address] [place], [place] [address] Abbi Choudhary M.D. [id number] Hematocrit (Bld) [Volume fraction] 28.9 % Low 36.0-46.0 [facility] Comment on above: Performed By: #### 4 5218 ####[facility] [address] [place], [place] [address] Abbi Choudhary M.D. [id number] Hemoglobin (Bld) [Mass/Vol] 9.3 g/dL Low 12.0-16.0 [facility] Comment on above: Performed By: #### 4 5218 ####[facility] [address] [place], [place] [address] Abbi Choudhary M.D. [id number] MCH (RBC) [Entitic mass] 30.9 pg Normal 26.0-34.0 [facility] Comment on above: Performed By: #### 4 5218 ####[facility] [address] [place], [place] [address] Abbi Choudhary M.D. [id number] MCV (RBC) [Entitic vol] 96.0 fL Normal 80.0-100.0 [facility] Comment on above: Performed By: #### 4 5218 ####[facility] [address] [place], [place] [address] Abbi Choudhary M.D. [id number] MEAN CORPUSCULAR HEMOGLOBIN CONC 32.2 g/dL Normal 31.0-37.0 [facility] Comment on above: Performed By: #### 4 5218 ####[facility] [address] [place], [place] [address] Abbi Choudhary M.D. [id number] Platelet mean volume (Bld) [Entitic vol] 9.9 fL Normal 9.4-12.4 [facility] Comment on above: Performed By: #### 4 5218 ####[facility] [address] [place], [place] [address] Abbi Choudhary M.D. [id number] Platelets (Bld) [#/Vol] 259 10*3/uL Normal 150-400 [facility] Comment on above: Performed By: #### 4 5218 ####[facility] [address] [place], [place] [address] Abbi Choudhary M.D. [id number] RBC (Bld) [#/Vol] 3.01 10*6/uL Low 4.00-5.20 [facility] Comment on above: Performed By: #### 4 5218 ####[facility] [address] [place], [place] [address] Abbi Choudhary M.D. [id number] WBC (Bld) [#/Vol] 7.74 10*3/uL Normal 4.50-11.00 [facility] Comment on above: Performed By: #### 4 5218 ####[facility] [address] [place], [place] [address] Abbi Choudhary M.D. [id number] CBC panel Auto (Bld)on 01-16 Erythrocyte distribution width (RBC) [Entitic vol] 13.1 % 11.6 - 14.8 % [facility] Hematocrit (Bld) [Volume fraction] 28.9 % Low 36.0 - 46.0 % [facility] Hemoglobin (Bld) [Mass/Vol] 9.3 g/dL Low 12.0 - 16.0 g/dL [facility] Interpretation and review of laboratory results Abnormal [facility] MCH (RBC) [Entitic mass] 30.9 pg 26.0 - 34.0 pg [facility] MCHC (RBC) [Mass/Vol] 32.2 g/dL 31.0 - 37.0 g/dL [facility] MCV (RBC) [Entitic vol] 96.0 fL 80.0 - 100.0 fL [facility] Nucleated RBC (Bld) [#/Vol] 0.00 10*3/uL [facility] Nucleated RBC/100 WBC (Bld) [Ratio] 0.0 % [facility] Platelet mean volume (Bld) [Entitic vol] 9.9 fL 9.4 - 12.4 fL [facility] Platelets (Bld) [#/Vol] 259 10*3/uL [facility] RBC (Bld) [#/Vol] 3.01 10*6/uL Low [facility] WBC (Bld) [#/Vol] 7.74 10*3/uL [facility] CT HEAD WITHOUT CONTRAST (ST [place])on 01-17-2024 CT HEAD WITHOUT CONTRAST (STROKE) Normal [facility] Comment on above: Order Comment: Injur y/Trauma or Illness?:Illness/OtherHow long have you had these symptoms (acute/chronic)?:AcuteReason for exam?:L sided parathesias, change in mentationType of Exam?:InitialAdditional signs and symptoms?:na CT Head WO contraston 2023 Negative for acute hemorrhage or acute intracranial process. 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, limited to breakdown of skin ([facility]) L97.521 Diabetic ulcer of toe of left foot associated with type 2 diabetes mellitus, limited to breakdown of skin ([facility]) E11.621 Diabetic ulcer of left great toe ([facility]) L97.529 Diabetic ulcer of left great toe ([facility]) R56.9 Seizures ([facility]) E11.42 Type 2 diabetes mellitus with diabetic polyneuropathy, with long-term current use of insulin ([facility]) Z79.4 Type 2 diabetes mellitus with diabetic polyneuropathy, with long-term current use of insulin ([facility]) COMPARISON: CTA head and neck 11/07/2023 TECHNIQUE: [...] There are no abnormal extraaxial fluid collections. [facility] Elvis Mae MD - 01/17/2024 EXAMINATION: CT [...] or acute intracranial process. Workstation ID: [id number] [facility] Radiology Study observation (narrative) [facility] CT Head WO contrastOrdered B y: Elvis Mae on 01-17-2024 [facility] Work Phone: Glucose (Bld) [Mass/Vol]on 0 01-17-2024 Glucose [Mass/Vol] 87 mg/dL 65 - 99 mg/dL [facility] Interpretation and review of laboratory results Normal [facility] Glucose [Mass/Vol] 255 mg/dL High 65 - 99 mg/dL [facility] Interpretation and review of laboratory results Abnormal [facility] Glucose [Mass/Vol] 93 mg/dL 65 - 99 mg/dL [facility] Interpretation and review of laboratory results Normal [facility] Glucose [Mass/Vol] 58 mg/dL Low 65 - 99 mg/dL [facility] Interpretation and review of laboratory results Abnormal [facility] Glucose [Mass/Vol] 86 mg/dL 65 - 99 mg/dL [facility] Interpretation and review of laboratory results Normal [facility] POC GLUCOSE - [facility] 024 Glucose [Mass/Vol] 87 mg/dL Normal 65-99 [facility] Comment on above: Performed By: #### 4 6932 ####[facility] [address] [place], [place] [address] Abbi Choudhary M.D. [id number] Glucose [Mass/Vol] 255 mg/dL High 65- [facility] Comment on above: Performed By: #### 4 6932 ####[facility] [address] [place], [place] [address] Abbi Choudhary M.D. [id number] Glucose [Mass/Vol] 93 mg/dL Normal 65-99 [facility] Comment on above: Performed By: #### 4 6932 ####[facility] [address] [place], [place] [address] Abbi Choudhary M.D. [id number] Glucose [Mass/Vol] 58 mg/dL Low [address] [place] [address] Comment on above: Performed By: #### 4 6932 ####[facility] [address] [place], [place] [address] Abbi Choudhary M.D. [id number] Glucose [Mass/Vol] 86 mg/dL Normal [address] [place] [address] Comment on above: Performed By: #### 4 6932 ####[facility] [address] [place], [place] [address] Abbi Choudhary M.D. [id number] RENAL FUNCTION PANELon 01-16 Albumin [Mass/Vol] 3.2 g/dL Normal 3.2-5.2 [facility] Comment on above: Order Comment: [facility] Laboratory Services has implemented the eGFR calculation approach that does not have a coefficient for race that conforms to the NKF-ASN Task Force Recommendations. Performed By: #### 4 [id number] ####[facility] [address] [place], [place] [address] Abbi Choudhary M.D. [id number] Anion gap [Moles/Vol] 12 mmol/L Normal 10-20 [facility] Comment on above: Order Comment: [facility] has implemented the eGFR calculation approach that does not have a coefficient for race that conforms to the NKF-ASN Task Force Recommendations. Performed By: #### 4 [id number] ####[facility] [address] [place], [place] [address] Abbi Choudhary M.D. [id number] Calcium [Mass/Vol] 8.6 mg/dL Normal 8.4-10.2 [facility] Comment on above: Order Comment: [facility] has implemented the eGFR calculation approach that does not have a coefficient for race that conforms to the NKF-ASN Task Force Recommendations. Performed By: #### 4 [id number] ####[facility] [address] [place], [place] [address] Abbi Choudhary M.D. [id number] Chloride [Moles/Vol] 113 mmol/L High 98-108 [facility] Comment on above: Order Comment: [facility] has implemented the eGFR calculation approach that does not have a coefficient for race that conforms to the NKF-ASN Task Force Recommendations. Performed By: #### 4 6449 ####[facility] [address] [place], [place] [address] Abbi Choudhary M.D. [id number] Creatinine [Mass/Vol] 1.69 mg/dL High 0.40-1.10 [facility] Comment on above: Order Comment: [facility] has implemented the eGFR calculation approach that does not have a coefficient for race that conforms to the NKF-ASN Task Force Recommendations. Performed By: #### 4 6449 ####[facility] [address] [place], [place] [address] Abbi Choudhary M.D. [id number] EGFR 38 mL/min/1.73 m2 Low >=60 [facility] Comment on above: Order Comment: [facility] has implemented the eGFR calculation approach that does not have a coefficient for race that conforms to the NKF-ASN Task Force Recommendations. Result Comment: Lorie mated GFR was calculated using the 2020 CKD-EPI creatinine equation. Performed By: #### 4 [id number] ####[facility] [address] [place], [place] [address] Abbi Choudhary M.D. [id number] Glucose [Mass/Vol] 127 mg/dL High 65-99 [facility] Comment on above: Order Comment: [facility] has implemented the eGFR calculation approach that does not have a coefficient for race that conforms to the NKF-ASN Task Force Recommendations. Performed By: #### 4 [id number] ####[facility] [address] [place], [place] [address] Abbi Choudhary M.D. [id number] HCO3 (Bld) [Moles/Vol] 23 mmol/L Normal 21-32 [facility] Comment on above: Order Comment: [facility] has implemented the eGFR calculation approach that does not have a coefficient for race that conforms to the NKF-ASN Task Force Recommendations. Performed By: #### 4 [id number] ####[facility] [address] [place], [place] [address] Abbi Choudhary M.D. [id number] Phosphate [Mass/Vol] 3.7 mg/dL Normal 2.7-4.5 [facility] Comment on above: Order Comment: [facility] has implemented the eGFR calculation approach that does not have a coefficient for race that conforms to the NKF-ASN Task Force Recommendations. Performed By: #### 4 6449 ####[facility] [address] [place], [place] [address] Abbi Choudhary M.D. [id number] Potassium [Moles/Vol] 4.8 mmol/L Normal 3.5-5.1 [facility] Comment on above: Order Comment: [facility] has implemented the eGFR calculation approach that does not have a coefficient for race that conforms to the NKF-ASN Task Force Recommendations. Result Comment: Slig htly Hemolyzed Performed By: #### 4 6449 ####[facility] [address] [place], [place] [address] Abbi Choudhary M.D. [id number] Sodium [Moles/Vol] 143 mmol/L Normal 135-145 [facility] Comment on above: Order Comment: [facility] has implemented the eGFR calculation approach that does not have a coefficient for race that conforms to the NKF-ASN Task Force Recommendations. Performed By: #### 4 [id number] ####[facility] [address] [place], [place] [address] Abbi Choudhary M.D. [id number] Urea nitrogen [Mass/Vol] 30 mg/dL High 01-16 [facility] Comment on above: Order Comment: [facility] has implemented the eGFR calculation approach that does not have a coefficient for race that conforms to the NKF-ASN Task Force Recommendations. Performed By: #### 4 [id number] ####[facility] [address] [place], [place] [address] Abbi Choudhary M.D. [id number] Urea nitrogen/Creatinine [Mass ratio] 17.8 mg/mg Normal 10.0-20.0 [facility] Comment on above: Order Comment: [facility] has implemented the eGFR calculation approach that does not have a coefficient for race that conforms to the NKF-ASN Task Force Recommendations. Performed By: #### 4 [id number] ####[facility] [address] [place], [place] [address] Abbi Choudhary M.D. [id number] Renal function 2000 panelOrd ered By: Janelle Juarez on 01-17-2024 Albumin [Mass/Vol] 3.2 g/dL 3.2 - 5.2 g/dL [facility] Anion gap [Moles/Vol] 12 mmol/L 10 - 2 0 mmol/L [facility] Calcium [Mass/Vol] 8.6 mg/dL 8.4 - 10. 2 mg/dL [facility] Chloride [Moles/Vol] 113 mmol/L High 98 - 10 8 mmol/L [facility] Creatinine [Mass/Vol] 1.69 mg/dL High 0.40 - 1.10 mg/dL [facility] GFR/1.73 sq M.predicted CKD-EPI (S/P/Bld) [Vol rate/Area] 38 Low - PINF [facility] Comment on above: Estimated GFR was ca lculated using the 2020 CKD-EPI creatinine equation. Glucose [Mass/Vol] 127 mg/dL High 65 - 99 mg/dL [facility] HCO3 [Moles/Vol] 23 mmol/L 21 - 32 mmol/L [facility] Interpretation and review of laboratory results Abnormal [facility] Phosphate [Mass/Vol] 3.7 mg/dL 2.7 - 4 .5 mg/dL [facility] Potassium [Moles/Vol] 4.8 mmol/L 3.5 - 5.1 mmol/L [facility] Comment on above: Slightly Hemolyzed Sodium [Moles/Vol] 143 mmol/L 135 - 145 mmol/L [facility] Urea nitrogen [Mass/Vol] 30 mg/dL High 8 - 25 mg/dL [facility] Urea nitrogen/Creatinine [Mass ratio] 17.8 mg/mg 10.0 - 20.0 [facility] has implemented the eGFR calculation approach that does not have a coefficient for race that conforms to the NKF-ASN Task Force Recommendations. [facility] CBCon 01-16-2024 AUTO NRBC 0.0 % Normal [facility] Comment on above: Performed By: #### 4 [id number] ####[facility] [address] [place] [address] Abbi Choudhary M.D. [id number] AUTO NRBC ABS COUNT 0.00 K/mcL Normal 0.00-0.00 [facility] Comment on above: Performed By: #### 4 [id number] ####[facility] [address] [place], [place] [address] Abbi Choudhary M.D. [id number] Erythrocyte distribution width (RBC) [Ratio] 13.1 % Normal 11.6-14.8 [facility] Comment on above: Performed By: #### 4 [id number] ####[facility] [address] [place], [place] [address] Abbi Choudhary M.D. [id number] Hematocrit (Bld) [Volume fraction] 30.1 % Low 36.0-46.0 [facility] Comment on above: Performed By: #### 4 [id number] ####[facility] [address] [place], [place] [address] Abbi Choudhary M.D. [id number] Hemoglobin (Bld) [Mass/Vol] 9.4 g/dL Low 12.0-16.0 [facility] Comment on above: Performed By: #### 4 [id number] ####[facility] [address] [place], [place] [address] Abbi Choudhary M.D. [id number] MCH (RBC) [Entitic mass] 30.1 pg Normal 26.0-34.0 [facility] Comment on above: Performed By: #### 4 [id number] ####[facility] [address] [place], [place] [address] Abbi Choudhary M.D. [id number] MCV (RBC) [Entitic vol] 96.5 fL Normal 80.0-100.0 [facility] Comment on above: Performed By: #### 4 [id number] ####[facility] [address] [place], [place] [address] Abbi Choudhary M.D. [id number] MEAN CORPUSCULAR HEMOGLOBIN CONC 31.2 g/dL Normal 31.0-37.0 [facility] Comment on above: Performed By: #### 4 [id number] ####[facility] [address] [place], [place] [address] Abbi Choudhary M.D. [id number] Platelet mean volume (Bld) [Entitic vol] 9.1 fL Low 9.4-12.4 [facility] Comment on above: Performed By: #### 4 [id number] ####[facility] [address] [place], [place] [address] Abbi Choudhary M.D. [id number] Platelets (Bld) [#/Vol] 285 10*3/uL Normal 150-400 [facility] Comment on above: Performed By: #### 4 [id number] ####[facility] [address] [place], [place] [address] Abbi Choudhary M.D. [id number] RBC (Bld) [#/Vol] 3.12 10*6/uL Low 4.00-5.20 [facility] Comment on above: Performed By: #### 4 [id number] ####[facility] [address] [place], [place] [address] Abbi Choudhary M.D. [id number] WBC (Bld) [#/Vol] 8.82 10*3/uL Normal 4.50-11.00 [facility] Comment on above: Performed By: #### 4 [id number] ####[facility] [address] [place], [place] [address] Abbi Choudhary M.D. [id number] CBC panel Auto (Bld)on 01-15 Erythrocyte distribution width (RBC) [Entitic vol] 13.1 % 11.6 - 14.8 % [facility] Hematocrit (Bld) [Volume fraction] 30.1 % Low 36.0 - 46.0 % [facility] Hemoglobin (Bld) [Mass/Vol] 9.4 g/dL Low 12.0 - 16.0 g/dL [facility] Interpretation and review of laboratory results Abnormal [facility] MCH (RBC) [Entitic mass] 30.1 pg 26.0 - 34.0 pg [facility] MCHC (RBC) [Mass/Vol] 31.2 g/dL 31.0 - 37.0 g/dL [facility] MCV (RBC) [Entitic vol] 96.5 fL 80.0 - 100.0 fL [facility] Nucleated RBC (Bld) [#/Vol] 0.00 10*3/uL [facility] Nucleated RBC/100 WBC (Bld) [Ratio] 0.0 % [facility] Platelet mean volume (Bld) [Entitic vol] 9.1 fL Low 9.4 - 12.4 fL [facility] Platelets (Bld) [#/Vol] 285 10*3/uL [facility] RBC (Bld) [#/Vol] 3.12 10*6/uL Low [facility] WBC (Bld) [#/Vol] 8.82 10*3/uL [facility]-16-2024 CONSULT Normal [facility] Glucose (Bld) [Mass/Vol]on 0 01-16-2024 Glucose [Mass/Vol] 211 mg/dL High 65 - 99 mg/dL [facility] Interpretation and review of laboratory results Abnormal [facility] Glucose [Mass/Vol] 106 mg/dL High 65 - 99 mg/dL [facility] Interpretation and review of laboratory results Abnormal [facility] Glucose [Mass/Vol] 222 mg/dL High 65 - 99 mg/dL [facility] Interpretation and review of laboratory results Abnormal [facility] Glucose [Mass/Vol] 69 mg/dL 65 - 99 mg/dL [facility] Interpretation and review of laboratory results Normal [facility] POC GLUCOSE - [facility] 024 Glucose [Mass/Vol] 211 mg/dL High [address] [place] [address] Comment on above: Performed By: #### 4 [id number] ####[facility] [address] [place], [place] [address] Abbi Choudhary M.D. [id number] Glucose [Mass/Vol] 106 mg/dL High [address] [place] [address] Comment on above: Performed By: #### 4 [id number] ####[facility] [address] [place], [place] [address] Abbi Choudhary M.D. [id number] Glucose [Mass/Vol] 222 mg/dL High [address] [place] [address] Comment on above: Performed By: #### 4 [id number] ####[facility] [address] [place], [place] [address] Abbi Choudhary M.D. [id number] Glucose [Mass/Vol] 69 mg/dL Normal [address] [place] [address] Comment on above: Performed By: #### 4 [id number] ####[facility] [address] [place], [place] [address] Abbi Choudhary M.D. [id number] RENAL FUNCTION PANEL 01-15 Albumin [Mass/Vol] 3.3 g/dL Normal 3.2-5.2 [facility] Comment on above: Order Comment: [facility] has implemented the eGFR calculation approach that does not have a coefficient for race that conforms to the NKF-ASN Task Force Recommendations. Performed By: #### 4 [id number] ####[facility] [address] [place], [place] [address] Abbi Choudhary M.D. [id number] Anion gap [Moles/Vol] 12 mmol/L Normal - [facility] Comment on above: Order Comment: [facility] has implemented the eGFR calculation approach that does not have a coefficient for race that conforms to the NKF-ASN Task Force Recommendations. Performed By: #### 4 [id number] ####[facility] [address], [place] [address]Alisia Choudhary M.D. [id number] Calcium [Mass/Vol] 8.8 mg/dL Normal 8.4-10.2 [facility] Comment on above: Order Comment: [facility] has implemented the eGFR calculation approach that does not have a coefficient for race that conforms to the NKF-ASN Task Force Recommendations. Performed By: #### 4 6449 ####[facility] [address] [place], [place] [address] Abbi Choudhary M.D. [id number] Chloride [Moles/Vol] 111 mmol/L High 98-108 [facility] Comment on above: Order Comment: [facility] has implemented the eGFR calculation approach that does not have a coefficient for race that conforms to the NKF-ASN Task Force Recommendations. Performed By: #### 4 6449 ####[facility] [address] [place], [place] [address] Abbi Choudhary M.D. [id number] Creatinine [Mass/Vol] 1.63 mg/dL High 0.40-1.10 [facility] Comment on above: Order Comment: [facility] has implemented the eGFR calculation approach that does not have a coefficient for race that conforms to the NKF-ASN Task Force Recommendations. Performed By: #### 4 6449 ####[facility] [address] [place], [place] [address] Abbi Choudhary M.D. [id number] EGFR 39 mL/min/1.73 m2 Low >=60 [facility] Comment on above: Order Comment: [facility] has implemented the eGFR calculation approach that does not have a coefficient for race that conforms to the NKF-ASN Task Force Recommendations. Result Comment: Lorie mated GFR was calculated using the 2020 CKD-EPI creatinine equation. Performed By: #### 4 [id number] ####[facility] [address] [place], [place] [address] Abbi Choudhary M.D. [id number] Glucose [Mass/Vol] 103 mg/dL High 65-99 [facility] Comment on above: Order Comment: [facility] has implemented the eGFR calculation approach that does not have a coefficient for race that conforms to the NKF-ASN Task Force Recommendations. Performed By: #### 4 6449 ####[facility] [address] [place], [place] [address] Abbi Choudhary M.D. [id number] HCO3 (Bld) [Moles/Vol] 25 mmol/L Normal 21-32 [facility] Comment on above: Order Comment: [facility] has implemented the eGFR calculation approach that does not have a coefficient for race that conforms to the NKF-ASN Task Force Recommendations. Performed By: #### 4 6449 ####[facility] [address] [place], [place] [address] Abbi Choudhary M.D. [id number] Phosphate [Mass/Vol] 4.1 mg/dL Normal 2.7-4.5 [facility] Comment on above: Order Comment: [facility] has implemented the eGFR calculation approach that does not have a coefficient for race that conforms to the NKF-ASN Task Force Recommendations. Performed By: #### 4 6449 ####[facility] [address] [place], [place] [address] Abbi Choudhary M.D. [id number] Potassium [Moles/Vol] 4.5 mmol/L Normal 3.5-5.1 [facility] Comment on above: Order Comment: [facility] has implemented the eGFR calculation approach that does not have a coefficient for race that conforms to the NKF-ASN Task Force Recommendations. Performed By: #### 4 6449 ####[facility] [address] [place], [place] [address] Abbi Choudhary M.D. [id number] Sodium [Moles/Vol] 143 mmol/L Normal 135-145 [facility] Comment on above: Order Comment: [facility] has implemented the eGFR calculation approach that does not have a coefficient for race that conforms to the NKF-ASN Task Force Recommendations. Performed By: #### 4 6449 ####[facility] [address] [place], [place] [address] Abbi Choudhary M.D. [id number] Urea nitrogen [Mass/Vol] 27 mg/dL High 8-25 [facility] Comment on above: Order Comment: [facility] has implemented the eGFR calculation approach that does not have a coefficient for race that conforms to the NKF-ASN Task Force Recommendations. Performed By: #### 4 [id number] ####[facility] [address] [place], [place] [address] Abbi Choudhary M.D. [id number] Urea nitrogen/Creatinine [Mass ratio] 16.6 mg/mg Normal 10.0-20.0 [facility] Comment on above: Order Comment: [facility] has implemented the eGFR calculation approach that does not have a coefficient for race that conforms to the NKF-ASN Task Force Recommendations. Performed By: #### 4 [id number] ####[facility] [address] [place], [place] [address] Abbi Choudhary M.D. [id number] Renal function 2000 [facility] 01-16-2024 Albumin [Mass/Vol] 3.3 g/dL 3.2 - 5.2 g/dL [facility] Anion gap [Moles/Vol] 12 mmol/L 10 - 2 0 mmol/L [facility] Calcium [Mass/Vol] 8.8 mg/dL 8.4 - 10. 2 mg/dL [facility] Chloride [Moles/Vol] 111 mmol/L High 98 - 10 8 mmol/L [facility] Creatinine [Mass/Vol] 1.63 mg/dL High 0.40 - 1.10 mg/dL [facility] GFR/1.73 sq M.predicted CKD-EPI (S/P/Bld) [Vol rate/Area] 39 Low - PINF [facility] Comment on above: Estimated GFR was ca lculated using the 2020 CKD-EPI creatinine equation. Glucose [Mass/Vol] 103 mg/dL High 65 - 99 mg/dL [facility] HCO3 [Moles/Vol] 25 mmol/L 21 - 32 mmol/L [facility] Interpretation and review of laboratory results Abnormal [facility] Phosphate [Mass/Vol] 4.1 mg/dL 2.7 - 4 .5 mg/dL [facility] Potassium [Moles/Vol] 4.5 mmol/L 3.5 - 5.1 mmol/L [facility] Sodium [Moles/Vol] 143 mmol/L 135 - 145 mmol/L [facility] Urea nitrogen [Mass/Vol] 27 mg/dL High 8 - 25 mg/dL [facility] Urea nitrogen/Creatinine [Mass ratio] 16.6 mg/mg 10.0 - 20.0 [facility] has implemented the eGFR calculation approach that does not have a coefficient for race that conforms to the NKF-ASN Task Force Recommendations. [facility] URINALYSISon 01-16-2024 BACTERIA, URINE Rare Abnormal None Seen [facility] Comment on above: Order Comment: Micro scopic examination is performed on all urinalysis samples and only positive findings are reported. The test for blood on the chemical analytic portion of urinalysis may also be positive due to hemoglobinuria and myoglobinuria and if red blood cells are present they are quantified by microscopic examination. Performed By: #### 4 [id number] ####[facility] [address] [place] [address] Abbi Choudhary M.D. [id number] BILIRUBIN, URINE Negative Normal Negative [facility] Comment on above: Order Comment: Micro scopic examination is performed on all urinalysis samples and only positive findings are reported. The test for blood on the chemical analytic portion of urinalysis may also be positive due to hemoglobinuria and myoglobinuria and if red blood cells are present they are quantified by microscopic examination. Performed By: #### 4 [id number] ####[facility] [address] [place], [place] [address] Abbi Choudhary M.D. [id number] BLOOD, URINE Negative Normal Negative [facility] Comment on above: Order Comment: Micro scopic examination is performed on all urinalysis samples and only positive findings are reported. The test for blood on the chemical analytic portion of urinalysis may also be positive due to hemoglobinuria and myoglobinuria and if red blood cells are present they are quantified by microscopic examination. Performed By: #### 4 [id number] ####[facility] [address] [place] [address] Abbi Choudhary M.D. [id number] Clarity (U) Clear Normal Clear [facility] Comment on above: Order Comment: Micro scopic examination is performed on all urinalysis samples and only positive findings are reported. The test for blood on the chemical analytic portion of urinalysis may also be positive due to hemoglobinuria and myoglobinuria and if red blood cells are present they are quantified by microscopic examination. Performed By: #### 4 [id number] ####[facility] [address] [place], [place] [address] Abbi Choudhary M.D. [id number] Color (U) Yellow Normal Colorless, Yellow [facility] Comment on above: Order Comment: Micro scopic examination is performed on all urinalysis samples and only positive findings are reported. The test for blood on the chemical analytic portion of urinalysis may also be positive due to hemoglobinuria and myoglobinuria and if red blood cells are present they are quantified by microscopic examination. Performed By: #### 4 6625 ####[facility] [address] [place] [address] Abbi Choudhary M.D. [id number] Glucose Ql (U) 50 mg/dL Abnormal Negative [facility] Comment on above: Order Comment: Micro scopic examination is performed on all urinalysis samples and only positive findings are reported. The test for blood on the chemical analytic portion of urinalysis may also be positive due to hemoglobinuria and myoglobinuria and if red blood cells are present they are quantified by microscopic examination. Performed By: #### 4 6625 ####[facility] [address] [place], [place] [address] Abbi Choudhary M.D. [id number] Hyaline casts LM Ql (Urine sed) 3-5 Abnormal 0-2 [facility] Comment on above: Order Comment: Micro scopic examination is performed on all urinalysis samples and only positive findings are reported. The test for blood on the chemical analytic portion of urinalysis may also be positive due to hemoglobinuria and myoglobinuria and if red blood cells are present they are quantified by microscopic examination. Performed By: #### 4 [id number] ####[facility] [address] [place] [address] Abbi Choudhary M.D. [id number] Ketones Ql (U) Negative Normal Negative [facility] Comment on above: Order Comment: Micro scopic examination is performed on all urinalysis samples and only positive findings are reported. The test for blood on the chemical analytic portion of urinalysis may also be positive due to hemoglobinuria and myoglobinuria and if red blood cells are present they are quantified by microscopic examination. Performed By: #### 4 [id number] ####[facility] [address] [place], [place] [address] Abbi Choudhary M.D. [id number] Leukocyte esterase Test strip Ql (U) Negative Normal Negative [facility] Comment on above: Order Comment: Micro scopic examination is performed on all urinalysis samples and only positive findings are reported. The test for blood on the chemical analytic portion of urinalysis may also be positive due to hemoglobinuria and myoglobinuria and if red blood cells are present they are quantified by microscopic examination. Performed By: #### 4 [id number] ####[facility] [address] [address] Abbi Choudhary M.D. [id number] MUCUS, URINE Rare Normal None Seen, Rare [facility] Comment on above: Order Comment: Micro scopic examination is performed on all urinalysis samples and only positive findings are reported. The test for blood on the chemical analytic portion of urinalysis may also be positive due to hemoglobinuria and myoglobinuria and if red blood cells are present they are quantified by microscopic examination. Performed By: #### 4 [id number] ####[facility] [address] [place], [place] [address] Abbi Choudhary M.D. [id number] NITRITE, URINE Negative Normal Negative [facility] Comment on above: Order Comment: Micro scopic examination is performed on all urinalysis samples and only positive findings are reported. The test for blood on the chemical analytic portion of urinalysis may also be positive due to hemoglobinuria and myoglobinuria and if red blood cells are present they are quantified by microscopic examination. Performed By: #### 4 6625 ####[facility] [address] [place], [place] [address] Abbi Choudhary M.D. [id number] pH (U) 5.0 [pH] Normal 5.0-7.0 [facility] Comment on above: Order Comment: Micro scopic examination is performed on all urinalysis samples and only positive findings are reported. The test for blood on the chemical analytic portion of urinalysis may also be positive due to hemoglobinuria and myoglobinuria and if red blood cells are present they are quantified by microscopic examination. Performed By: #### 4 6625 ####[facility] [address] [address] Abbi Choudhary M.D. [id number] Protein (U) [Mass/Vol] 100 mg/dL Abnormal Negative [facility] Comment on above: Order Comment: Micro scopic examination is performed on all urinalysis samples and only positive findings are reported. The test for blood on the chemical analytic portion of urinalysis may also be positive due to hemoglobinuria and myoglobinuria and if red blood cells are present they are quantified by microscopic examination. Performed By: #### 4 [id number] ####[facility] [address] [place] [address] Abbi Choudhary M.D. [id number] RBC LM.HPF (Urine sed) [#/Area] 2 /[HPF] Normal 0-3 [facility] Comment on above: Order Comment: Micro scopic examination is performed on all urinalysis samples and only positive findings are reported. The test for blood on the chemical analytic portion of urinalysis may also be positive due to hemoglobinuria and myoglobinuria and if red blood cells are present they are quantified by microscopic examination. Performed By: #### 4 [id number] ####[facility] [address] [place], [place] [address] Abbi Choudhary M.D. [id number] Specific gravity (U) [Rel density] 1.013 Normal 1.005-1.025 [facility] Comment on above: Order Comment: Micro scopic examination is performed on all urinalysis samples and only positive findings are reported. The test for blood on the chemical analytic portion of urinalysis may also be positive due to hemoglobinuria and myoglobinuria and if red blood cells are present they are quantified by microscopic examination. Performed By: #### 4 [id number] ####[facility] [address] [place], [place] [address] Abbi Choudhary M.D. [id number] SQUAMOUS EPITHELIAL 2 /hpf Normal 0-4 [facility] Comment on above: Order Comment: Micro scopic examination is performed on all urinalysis samples and only positive findings are reported. The test for blood on the chemical analytic portion of urinalysis may also be positive due to hemoglobinuria and myoglobinuria and if red blood cells are present they are quantified by microscopic examination. Performed By: #### 4 6625 ####[facility] [address] [address] Abbi Choudhary M.D. [id number] UROBILINOGEN, URINE <2.0 Normal <2.0 [facility] Comment on above: Order Comment: Micro scopic examination is performed on all urinalysis samples and only positive findings are reported. The test for blood on the chemical analytic portion of urinalysis may also be positive due to hemoglobinuria and myoglobinuria and if red blood cells are present they are quantified by microscopic examination. Performed By: #### 4 6625 ####[facility] [address] [place], [place] [address] Abbi Choudhary M.D. [id number] WBC LM.HPF (Urine sed) [#/Area] 1 /[HPF] Normal 0-5 [facility] Comment on above: Order Comment: Micro scopic examination is performed on all urinalysis samples and only positive findings are reported. The test for blood on the chemical analytic portion of urinalysis may also be positive due to hemoglobinuria and myoglobinuria and if red blood cells are present they are quantified by microscopic examination. Performed By: #### 4 [id number] ####[facility] [address] [place], [place] [address] Abbi Choudhary M.D. [id number] US Kidney - bilateral and Ur inary bladderon 01-16-2024 Radiology Study observation (narrative) [facility] US RENAL AND BLADDERon 01-15 US RENAL AND BLADDER Normal [facility] Comment on above: Order Comment: Injur y/Trauma or Illness?:Illness/OtherHow long have you had these symptoms (acute/chronic)?:AcuteReason for exam?:akiHistory of cancer?:uSurgeries, chemotherapy, or radiation?:pacemakerType of Exam?:InitialAdditional signs and symptoms?:none UrinalysisOrdered By: Mayela Schmitt on 01-16-2024 Bacteria Auto Ql (U) Rare Abnormal None Se en /hpf [facility] Bilirubin Ql (U) Negative [facility] Ref[facility] automated (U) Clear Clear [facility] Color (U) Yellow Colorless, Yellow [facility] Epithelial cells.squamous Auto (Urine sed) [#/Area] 2 [facility] Glucose Auto test strip (U) [Mass/Vol] 50 mg/dL Abnormal Negative [facility] Hemoglobin Auto test strip Ql (U) Negative Negative [facility] Hyaline casts Auto (Urine sed) [#/Area] 3-5 Abnormal [facility] Interpretation and review of laboratory results Abnormal [facility] Ketones (U) [Mass/Vol] Negative Negative mg/dL [facility] Leukocyte esterase Auto test strip Ql (U) Negative Negative [facility] Mucus Auto (Urine sed) [#/Area] Rare None Seen, Rare /lpf [facility] Nitrite Auto test strip Ql (U) Negative Negative [facility] pH (U) 5.0 [pH] 5.0 - 7.0 [facility] Protein (U) [Mass/Vol] 100 mg/dL Abnormal Negative [facility] RBC Auto (Urine sed) [#/Area] 2 [facility] Specific gravity (U) [Rel density] 1.013 1.005 - 1.025 [facility] Urobilinogen (U) [Mass/Vol] mg/dL NINF - 2.0 mg/dL [facility] WBC Auto (Urine sed) [#/Area] 1 [facility] Microscopic examinat ion is performed on all urinalysis samples and only positive findings are reported. The test for blood on the chemical analytic portion of urinalysis may also be positive due to hemoglobinuria and myoglobinuria and if red blood cells are present they are quantified by microscopic examination. [facility] CBCon 01-15-2024 AUTO NRBC 0.0 % Normal [facility] Comment on above: Performed By: #### 4 [id number] ####[facility] [address] [address] Abbi Choudhary M.D. [id number] AUTO NRBC ABS COUNT 0.00 K/mcL Normal 0.00-0.00 [facility] Comment on above: Performed By: #### 4 [id number] ####[facility] [address] [place], [place] [address] Abbi Choudhary M.D. [id number] Erythrocyte distribution width (RBC) [Ratio] 13.1 % Normal 11.6-14.8 [facility] Comment on above: Performed By: #### 4 [id number] ####[facility] [address] [place], [place] [address] Abbi Choudhary M.D. [id number] Hematocrit (Bld) [Volume fraction] 31.2 % Low 36.0-46.0 [facility] Comment on above: Performed By: #### 4 [id number] ####[facility] [address] [place], [place] [address] Abbi Choudhary M.D. [id number] Hemoglobin (Bld) [Mass/Vol] 9.9 g/dL Low 12.0-16.0 [facility] Comment on above: Performed By: #### 4 [id number] ####[facility] [address] [place], [place] [address] Abbi Choudhary M.D. [id number] MCH (RBC) [Entitic mass] 30.6 pg Normal 26.0-34.0 [facility] Comment on above: Performed By: #### 4 [id number] ####[facility] [address] [place], [place] [address] Abbi Choudhary M.D. [id number] MCV (RBC) [Entitic vol] 96.3 fL Normal 80.0-100.0 [facility] Comment on above: Performed By: #### 4 [id number] ####[facility] [address] [place], [place] [address] Abbi Choudhary M.D. [id number] MEAN CORPUSCULAR HEMOGLOBIN CONC 31.7 g/dL Normal 31.0-37.0 [facility] Comment on above: Performed By: #### 4 [id number] ####[facility] [address] [place], [place] [address] Abbi Choudhary M.D. [id number] Platelet mean volume (Bld) [Entitic vol] 9.3 fL Low 9.4-12.4 [facility] Comment on above: Performed By: #### 4 [id number] ####[facility] [address] [place], [place] [address] Abbi Choudhary M.D. [id number] Platelets (Bld) [#/Vol] 266 10*3/uL Normal 150-400 [facility] Comment on above: Performed By: #### 4 [id number] ####[facility] [address] [address] Abbi Choudhary M.D. [id number] RBC (Bld) [#/Vol] 3.24 10*6/uL Low 4.00-5.20 [facility] Comment on above: Performed By: #### 4 [id number] ####[facility] [address] [address] Abbi Choudhary M.D. [id number] WBC (Bld) [#/Vol] 7.12 10*3/uL Normal 4.50-11.00 [facility] Comment on above: Performed By: #### 4 [id number] ####[facility] [address] [place], [place] [address] Abbi Choudhary M.D. [id number] CBC panel Auto (Bld)on 01-14 Erythrocyte distribution width (RBC) [Entitic vol] 13.1 % 11.6 - 14.8 % [facility] Hematocrit (Bld) [Volume fraction] 31.2 % Low 36.0 - 46.0 % [facility] Hemoglobin (Bld) [Mass/Vol] 9.9 g/dL Low 12.0 - 16.0 g/dL [facility] Interpretation and review of laboratory results Abnormal [facility] MCH (RBC) [Entitic mass] 30.6 pg 26.0 - 34.0 pg [facility] MCHC (RBC) [Mass/Vol] 31.7 g/dL 31.0 - 37.0 g/dL [facility] MCV (RBC) [Entitic vol] 96.3 fL 80.0 - 100.0 fL [facility] Nucleated RBC (Bld) [#/Vol] 0.00 10*3/uL [facility] Nucleated RBC/100 WBC (Bld) [Ratio] 0.0 % [facility] Platelet mean volume (Bld) [Entitic vol] 9.3 fL Low 9.4 - 12.4 fL [facility] Platelets (Bld) [#/Vol] 266 10*3/uL [facility] RBC (Bld) [#/Vol] 3.24 10*6/uL Low [facility] eah WBC (Bld) [#/Vol] 7.12 10*3/uL [facility] Glucose (Bld) [Mass/Vol]on 0 01-15-2024 Glucose [Mass/Vol] 233 mg/dL High 65 - 99 mg/dL [facility] Interpretation and review of laboratory results Abnormal [facility] Glucose [Mass/Vol] 103 mg/dL High 65 - 99 mg/dL [facility] Interpretation and review of laboratory results Abnormal [facility] Glucose [Mass/Vol] 89 mg/dL 65 - 99 mg/dL [facility] Interpretation and review of laboratory results Normal [facility] Glucose [Mass/Vol] 104 mg/dL High 65 - 99 mg/dL [facility] Interpretation and review of laboratory results Abnormal [facility] POC GLUCOSE - [facility] 024 Glucose [Mass/Vol] 233 mg/dL High 65-[address] [place] [address] Comment on above: Performed By: #### 4 6932 ####[facility] [address] [place], [place] [address] Abbi Choudhary M.D. [id number] Glucose [Mass/Vol] 103 mg/dL High [address] [place] [address] Comment on above: Performed By: #### 4 6932 ####[facility] [address] [place], [place] [address] Abbi Choudhary M.D. [id number] Glucose [Mass/Vol] 89 mg/dL Normal [address] [place] [address] Comment on above: Performed By: #### 4 6932 ####[facility] [address] [place], [place] [address] Abbi Choudhary M.D. [id number] Glucose [Mass/Vol] 104 mg/dL High [address] [place] [address] Comment on above: Performed By: #### 4 6932 ####[facility] [address] [place], [place] [address] Abbi Choudhary M.D. [id number] RENAL FUNCTION PANELon 01-14 Albumin [Mass/Vol] 3.4 g/dL Normal 3.2-5.2 [facility] Comment on above: Order Comment: [facility] has implemented the eGFR calculation approach that does not have a coefficient for race that conforms to the NKF-ASN Task Force Recommendations. Performed By: #### 4 6449 ####[facility] [address] [place], [place] [address] Abbi Choudhary M.D. [id number] Anion gap [Moles/Vol] 13 mmol/L Normal 10-20 [facility] Comment on above: Order Comment: [facility] has implemented the eGFR calculation approach that does not have a coefficient for race that conforms to the NKF-ASN Task Force Recommendations. Performed By: #### 4 6449 ####[facility] [address] [place] [address] Abbi Choudhary M.D. [id number] Calcium [Mass/Vol] 8.7 mg/dL Normal 8.4-10.2 [facility] Comment on above: Order Comment: [facility] has implemented the eGFR calculation approach that does not have a coefficient for race that conforms to the NKF-ASN Task Force Recommendations. Performed By: #### 4 6449 ####[facility] [address] [place], [place] [address] Abbi Choudhary M.D. [id number] Chloride [Moles/Vol] 109 mmol/L High 98-108 [facility] Comment on above: Order Comment: [facility] has implemented the eGFR calculation approach that does not have a coefficient for race that conforms to the NKF-ASN Task Force Recommendations. Performed By: #### 4 6449 ####[facility] [address] [place], [place] [address] Abbi Choudhary M.D. [id number] Creatinine [Mass/Vol] 1.59 mg/dL High 0.40-1.10 [facility] Comment on above: Order Comment: [facility] has implemented the eGFR calculation approach that does not have a coefficient for race that conforms to the NKF-ASN Task Force Recommendations. Performed By: #### 4 6449 ####[facility] [address] [place], [place] [address] Abbi Choudhary M.D. [id number] EGFR 40 mL/min/1.73 m2 Low >=60 [facility] Comment on above: Order Comment: [facility] has implemented the eGFR calculation approach that does not have a coefficient for race that conforms to the NKF-ASN Task Force Recommendations. Result Comment: Lorie mated GFR was calculated using the 2020 CKD-EPI creatinine equation. Performed By: #### 4 6449 ####[facility] [address] [place], [place] [address] Abbi Choudhary M.D. [id number] Glucose [Mass/Vol] 102 mg/dL High 65-99 [facility] Comment on above: Order Comment: [facility] has implemented the eGFR calculation approach that does not have a coefficient for race that conforms to the NKF-ASN Task Force Recommendations. Performed By: #### 4 6449 ####[facility] [address] [place], [place] [address] Abbi Choudhary M.D. [id number] HCO3 (Bld) [Moles/Vol] 25 mmol/L Normal 21-32 [facility] Comment on above: Order Comment: [facility] has implemented the eGFR calculation approach that does not have a coefficient for race that conforms to the NKF-ASN Task Force Recommendations. Performed By: #### 4 6449 ####[facility] [address] [place], [place] [address] Abbi Choudhary M.D. [id number] Phosphate [Mass/Vol] 4.8 mg/dL High 2.7-4.5 [facility] Comment on above: Order Comment: [facility] has implemented the eGFR calculation approach that does not have a coefficient for race that conforms to the NKF-ASN Task Force Recommendations. Performed By: #### 4 6449 ####[facility] [address] [place], [place] [address] Abbi Choudhary M.D. [id number] Potassium [Moles/Vol] 4.2 mmol/L Normal 3.5-5.1 [facility] Comment on above: Order Comment: [facility] has implemented the eGFR calculation approach that does not have a coefficient for race that conforms to the NKF-ASN Task Force Recommendations. Performed By: #### 4 6449 ####[facility] [address] [place], [place] [address] Abbi Choudhary M.D. [id number] Sodium [Moles/Vol] 143 mmol/L Normal 135-145 [facility] Comment on above: Order Comment: [facility] has implemented the eGFR calculation approach that does not have a coefficient for race that conforms to the NKF-ASN Task Force Recommendations. Performed By: #### 4 6449 ####[facility] [address] [place], [place] [address] Abbi Choudhary M.D. [id number] Urea nitrogen [Mass/Vol] 27 mg/dL High 8-25 [facility] Comment on above: Order Comment: [facility] has implemented the eGFR calculation approach that does not have a coefficient for race that conforms to the NKF-ASN Task Force Recommendations. Performed By: #### 4 6449 ####[facility] [address] [place], [place] [address] Abbi Choudhary M.D. [id number] Urea nitrogen/Creatinine [Mass ratio] 17.0 mg/mg Normal 10.0-20.0 [facility] Comment on above: Order Comment: [facility] has implemented the eGFR calculation approach that does not have a coefficient for race that conforms to the NKF-ASN Task Force Recommendations. Performed By: #### 4 6449 ####[facility] [address] [place], [place] [address] Abbi Choudhary M.D. [id number] Renal function 2000 [facility] 01-15-2024 Albumin [Mass/Vol] 3.4 g/dL 3.2 - 5.2 g/dL [facility] Anion gap [Moles/Vol] 13 mmol/L 10 - 2 0 mmol/L [facility] Calcium [Mass/Vol] 8.7 mg/dL 8.4 - 10. 2 mg/dL [facility] Chloride [Moles/Vol] 109 mmol/L High 98 - 10 8 mmol/L [facility] Creatinine [Mass/Vol] 1.59 mg/dL High 0.40 - 1.10 mg/dL [facility] GFR/1.73 sq M.predicted CKD-EPI (S/P/Bld) [Vol rate/Area] 40 Low - PINF [facility] Comment on above: Estimated GFR was ca lculated using the 2020 CKD-EPI creatinine equation. Glucose [Mass/Vol] 102 mg/dL High 65 - 99 mg/dL [facility] HCO3 [Moles/Vol] 25 mmol/L 21 - 32 mmol/L [facility] Interpretation and review of laboratory results Abnormal [facility] Phosphate [Mass/Vol] 4.8 mg/dL High 2.7 - 4 .5 mg/dL [facility] Potassium [Moles/Vol] 4.2 mmol/L 3.5 - 5.1 mmol/L [facility] Sodium [Moles/Vol] 143 mmol/L 135 - 145 mmol/L [facility] Urea nitrogen [Mass/Vol] 27 mg/dL High 8 - 25 mg/dL [facility] Urea nitrogen/Creatinine [Mass ratio] 17.0 mg/mg 10.0 - 20.0 [facility] has implemented the eGFR calculation approach that does not have a coefficient for race that conforms to the NKF-ASN Task Force Recommendations. [facility] CBCon 01-14-2024 AUTO NRBC 0.0 % Normal [facility] Comment on above: Performed By: #### 4 [id number] ####[facility] [address] [place], [place] [address] Abbi Choudhary M.D. [id number] AUTO NRBC ABS COUNT 0.00 K/mcL Normal 0.00-0.00 [facility] Comment on above: Performed By: #### 4 [id number] ####[facility] [address] [place], [place] [address] Abbi Choudhary M.D. [id number] Erythrocyte distribution width (RBC) [Ratio] 13.2 % Normal 11.6-14.8 [facility] Comment on above: Performed By: #### 4 [id number] ####[facility] [address] [place], [place] [address] Abbi Choudhary M.D. [id number] Hematocrit (Bld) [Volume fraction] 29.6 % Low 36.0-46.0 [facility] Comment on above: Performed By: #### 4 [id number] ####[facility] [address] [place], [place] [address] Abbi Choudhary M.D. [id number] Hemoglobin (Bld) [Mass/Vol] 9.7 g/dL Low 12.0-16.0 [facility] Comment on above: Performed By: #### 4 5218 ####[facility] [address] [place], [place] [address] Abbi Choudhary M.D. [id number] MCH (RBC) [Entitic mass] 30.8 pg Normal 26.0-34.0 [facility] Comment on above: Performed By: #### 4 [id number] ####[facility] [address] [place], [place] [address] Abbi Choudhary M.D. [id number] MCV (RBC) [Entitic vol] 94.0 fL Normal 80.0-100.0 [facility] Comment on above: Performed By: #### 4 5218 ####[facility] [address] [place], [place] [address] Abbi Choudhary M.D. [id number] MEAN CORPUSCULAR HEMOGLOBIN CONC 32.8 g/dL Normal 31.0-37.0 [facility] Comment on above: Performed By: #### 4 5218 ####[facility] [address] [place], [place] [address] Abbi Choudhary M.D. [id number] Platelet mean volume (Bld) [Entitic vol] 9.0 fL Low 9.4-12.4 [facility] Comment on above: Performed By: #### 4 [id number] ####[facility] [address] [place], [place] [address] Abbi Choudhary M.D. [id number] Platelets (Bld) [#/Vol] 264 10*3/uL Normal 150-400 [facility] Comment on above: Performed By: #### 4 [id number] ####[facility] [address] [place], [place] [address] Abbi Choudhary M.D. [id number] RBC (Bld) [#/Vol] 3.15 10*6/uL Low 4.00-5.20 [facility] Comment on above: Performed By: #### 4 [id number] ####[facility] [address] [place], [place] [address] Abbi Choudhary M.D. [id number] WBC (Bld) [#/Vol] 7.49 10*3/uL Normal 4.50-11.00 [facility] Comment on above: Performed By: #### 4 [id number] ####[facility] [address] [place], [place] [address] Abbi Choudhary M.D. [id number] CBC panel Auto (Bld)on 01-13 Erythrocyte distribution width (RBC) [Entitic vol] 13.2 % 11.6 - 14.8 % [facility] Hematocrit (Bld) [Volume fraction] 29.6 % Low 36.0 - 46.0 % [facility] Hemoglobin (Bld) [Mass/Vol] 9.7 g/dL Low 12.0 - 16.0 g/dL [facility] Interpretation and review of laboratory results Abnormal [facility] MCH (RBC) [Entitic mass] 30.8 pg 26.0 - 34.0 pg [facility] MCHC (RBC) [Mass/Vol] 32.8 g/dL 31.0 - 37.0 g/dL [facility] MCV (RBC) [Entitic vol] 94.0 fL 80.0 - 100.0 fL [facility] Nucleated RBC (Bld) [#/Vol] 0.00 10*3/uL [facility] Nucleated RBC/100 WBC (Bld) [Ratio] 0.0 % [facility] Platelet mean volume (Bld) [Entitic vol] 9.0 fL Low 9.4 - 12.4 fL [facility] Platelets (Bld) [#/Vol] 264 10*3/uL [facility] RBC (Bld) [#/Vol] 3.15 10*6/uL Low [facility] WBC (Bld) [#/Vol] 7.49 10*3/uL [facility] CK [Catalytic activity/Vol]o n 01-14-2024 Interpretation and review of laboratory results Normal [facility] CPKon 01-14-2024 CPK 57 U/L Normal 40-170 [facility] Comment on above: Performed By: #### 4 [id number] ####[facility] [address] [place], [place] [address] Abbi Choudhary M.D. [id number] CPK NO MBon 01-14-2024 CK [Catalytic activity/Vol] 57 U/L 40 - 170 U/L [facility] Glucose (Bld) [Mass/Vol]on 0 01-14-2024 Glucose [Mass/Vol] 194 mg/dL High 65 - 99 mg/dL [facility] Interpretation and review of laboratory results Abnormal [facility] Glucose [Mass/Vol] 77 mg/dL 65 - 99 mg/dL [facility] Interpretation and review of laboratory results Normal [facility] Glucose [Mass/Vol] 239 mg/dL High 65 - 99 mg/dL [facility] Interpretation and review of laboratory results Abnormal [facility] Glucose [Mass/Vol] 99 mg/dL 65 - 99 mg/dL [facility] Interpretation and review of laboratory results Normal [facility] POC GLUCOSE - [facility] 024 Glucose [Mass/Vol] 194 mg/dL High 65-[address] [place] [address] Comment on above: Performed By: #### 4 6932 ####[facility] [address] [place], [place] [address] Abbi Choudhary M.D. [id number] Glucose [Mass/Vol] 77 mg/dL Normal [address] [place] [address] Comment on above: Performed By: #### 4 6932 ####[facility] [address] [place], [place] [address] Abbi Choudhary M.D. [id number] Glucose [Mass/Vol] 239 mg/dL High [address] [place] [address] Comment on above: Performed By: #### 4 6932 ####[facility] [address] [place], [place] [address] Abbi Choudhary M.D. [id number] Glucose [Mass/Vol] 99 mg/dL Normal [address] [place] [address] Comment on above: Performed By: #### 4 6932 ####[facility] [address] [place], [place] [address] Abbi Choudhary M.D. [id number] RENAL FUNCTION PANELon 01-13 Albumin [Mass/Vol] 3.4 g/dL Normal 3.2-5.2 [facility] Comment on above: Order Comment: [facility] Laboratory [facility] has implemented the eGFR calculation approach that does not have a coefficient for race that conforms to the NKF-ASN Task Force Recommendations. Performed By: #### 4 6449 ####[facility] [address] [place], [place] [address] Abbi Choudhary M.D. [id number] Anion gap [Moles/Vol] 13 mmol/L Normal 10-20 [facility] Comment on above: Order Comment: [facility] Laboratory [facility] has implemented the eGFR calculation approach that does not have a coefficient for race that conforms to the NKF-ASN Task Force Recommendations. Performed By: #### 4 6449 ####[facility] [address] [place], [place] [address] Abbi Choudhary M.D. [id number] Calcium [Mass/Vol] 8.5 mg/dL Normal 8.4-10.2 [facility] Comment on above: Order Comment: [facility] Laboratory [facility] has implemented the eGFR calculation approach that does not have a coefficient for race that conforms to the NKF-ASN Task Force Recommendations. Performed By: #### 4 6449 ####[facility] [address] [place], [place] [address] Abbi Choudhary M.D. [id number] Chloride [Moles/Vol] 107 mmol/L Normal 98-108 [facility] Comment on above: Order Comment: [facility] has implemented the eGFR calculation approach that does not have a coefficient for race that conforms to the NKF-ASN Task Force Recommendations. Performed By: #### 4 6449 ####[facility] [address] [place], [place] [address] Abbi Choudhary M.D. [id number] Creatinine [Mass/Vol] 1.59 mg/dL High 0.40-1.10 [facility] Comment on above: Order Comment: [facility] has implemented the eGFR calculation approach that does not have a coefficient for race that conforms to the NKF-ASN Task Force Recommendations. Performed By: #### 4 6449 ####[facility] [address] [place], [place] [address] Abbi Choudhary M.D. [id number] EGFR 40 mL/min/1.73 m2 Low >=60 [facility] Comment on above: Order Comment: [facility] Services has implemented the eGFR calculation approach that does not have a coefficient for race that conforms to the NKF-ASN Task Force Recommendations. Result Comment: Lorie mated GFR was calculated using the 2020 CKD-EPI creatinine equation. Performed By: #### 4 6449 ####[facility] [address] [place], [place] [address] Abbi Choudhary M.D. [id number] Glucose [Mass/Vol] 149 mg/dL High 65-99 [facility] Comment on above: Order Comment: [facility] has implemented the eGFR calculation approach that does not have a coefficient for race that conforms to the NKF-ASN Task Force Recommendations. Performed By: #### 4 6449 ####[facility] [address] [place], [place] [address] Abbi Choudhary M.D. [id number] HCO3 (Bld) [Moles/Vol] 25 mmol/L Normal 21-32 [facility] Comment on above: Order Comment: [facility] has implemented the eGFR calculation approach that does not have a coefficient for race that conforms to the NKF-ASN Task Force Recommendations. Performed By: #### 4 6449 ####[facility] [address] [place], [place] [address] Abbi Choudhary M.D. [id number] Phosphate [Mass/Vol] 4.7 mg/dL High 2.7-4.5 [facility] Comment on above: Order Comment: [facility] has implemented the eGFR calculation approach that does not have a coefficient for race that conforms to the NKF-ASN Task Force Recommendations. Performed By: #### 4 6449 ####[facility] [address] [place], [place] [address] Abbi Choudhary M.D. [id number] Potassium [Moles/Vol] 4.1 mmol/L Normal 3.5-5.1 [facility] Comment on above: Order Comment: [facility] has implemented the eGFR calculation approach that does not have a coefficient for race that conforms to the NKF-ASN Task Force Recommendations. Performed By: #### 4 6449 ####[facility] [address] [place], [place] [address] Abbi Choudhary M.D. [id number] Sodium [Moles/Vol] 141 mmol/L Normal 135-145 [facility] Comment on above: Order Comment: [facility] Services has implemented the eGFR calculation approach that does not have a coefficient for race that conforms to the NKF-ASN Task Force Recommendations. Performed By: #### 4 6449 #### LAB [address] [place], [place] [address] Abbi Choudhary M.D. [id number] Urea nitrogen [Mass/Vol] 28 mg/dL High 8-25 [facility] Comment on above: Order Comment: [facility] has implemented the eGFR calculation approach that does not have a coefficient for race that conforms to the NKF-ASN Task Force Recommendations. Performed By: #### 4 6449 ####[facility] [address] [place], [place] [address] Abbi Choudhary M.D. [id number] Urea nitrogen/Creatinine [Mass ratio] 17.6 mg/mg Normal 10.0-20.0 [facility] Comment on above: Order Comment: [facility] has implemented the eGFR calculation approach that does not have a coefficient for race that conforms to the NKF-ASN Task Force Recommendations. Performed By: #### 4 6449 ####[facility] [address] [place], [place] [address] Abbi Choudhary M.D. [id number] Renal function 2000 [facility] 01-14-2024 Albumin [Mass/Vol] 3.4 g/dL 3.2 - 5.2 g/dL [facility] Anion gap [Moles/Vol] 13 mmol/L 10 - 2 0 mmol/L [facility] Calcium [Mass/Vol] 8.5 mg/dL 8.4 - 10. 2 mg/dL [facility] Chloride [Moles/Vol] 107 mmol/L 98 - 10 8 mmol/L [facility] Creatinine [Mass/Vol] 1.59 mg/dL High 0.40 - 1.10 mg/dL [facility] GFR/1.73 sq M.predicted CKD-EPI (S/P/Bld) [Vol rate/Area] 40 Low - PINF [facility] Comment on above: Estimated GFR was ca lculated using the 2020 CKD-EPI creatinine equation. Glucose [Mass/Vol] 149 mg/dL High 65 - 99 mg/dL [facility] HCO3 [Moles/Vol] 25 mmol/L 21 - 32 mmol/L [facility] Interpretation and review of laboratory results Abnormal [facility] Phosphate [Mass/Vol] 4.7 mg/dL High 2.7 - 4 .5 mg/dL [facility] Potassium [Moles/Vol] 4.1 mmol/L 3.5 - 5.1 mmol/L [facility] Sodium [Moles/Vol] 141 mmol/L 135 - 145 mmol/L [facility] Urea nitrogen [Mass/Vol] 28 mg/dL High 8 - 25 mg/dL [facility] Urea nitrogen/Creatinine [Mass ratio] 17.6 mg/mg 10.0 - 20.0 [facility] Laborator y Services has implemented the eGFR calculation approach that does not have a coefficient for race that conforms to the NKF-ASN Task Force Recommendations. [facility] URINALYSISon 01-14-2024 BACTERIA, URINE None Seen Normal None Seen [facility] Comment on above: Order Comment: Micro scopic examination is performed on all urinalysis samples and only positive findings are reported. The test for blood on the chemical analytic portion of urinalysis may also be positive due to hemoglobinuria and myoglobinuria and if red blood cells are present they are quantified by microscopic examination. Performed By: #### 4 6625 ####[facility] [address] [place], [place] [address] Abbi Choudhary M.D. [id number] BILIRUBIN, URINE Negative Normal Negative [facility] Comment on above: Order Comment: Micro scopic examination is performed on all urinalysis samples and only positive findings are reported. The test for blood on the chemical analytic portion of urinalysis may also be positive due to hemoglobinuria and myoglobinuria and if red blood cells are present they are quantified by microscopic examination. Performed By: #### 4 6625 ####[facility] [address] [place], [place] [address] Abbi Choudhary M.D. [id number] BLOOD, URINE Negative Normal Negative [facility] Comment on above: Order Comment: Micro scopic examination is performed on all urinalysis samples and only positive findings are reported. The test for blood on the chemical analytic portion of urinalysis may also be positive due to hemoglobinuria and myoglobinuria and if red blood cells are present they are quantified by microscopic examination. Performed By: #### 4 6625 ####[facility] [address] [place] [address] Abbi Choudhary M.D. [id number] Clarity (U) Clear Normal Clear [facility] Comment on above: Order Comment: Micro scopic examination is performed on all urinalysis samples and only positive findings are reported. The test for blood on the chemical analytic portion of urinalysis may also be positive due to hemoglobinuria and myoglobinuria and if red blood cells are present they are quantified by microscopic examination. Performed By: #### 4 6625 ####[facility] [address] [place] [address] Abbi Choudhary M.D. [id number] Color (U) Yellow Normal Colorless, Yellow [facility] Comment on above: Order Comment: Micro scopic examination is performed on all urinalysis samples and only positive findings are reported. The test for blood on the chemical analytic portion of urinalysis may also be positive due to hemoglobinuria and myoglobinuria and if red blood cells are present they are quantified by microscopic examination. Performed By: #### 4 6625 ####[facility] [address] [place] [address] Abbi Choudhary M.D. [id number] Glucose Ql (U) 150 mg/dL Abnormal Negative [facility] Comment on above: Order Comment: Micro scopic examination is performed on all urinalysis samples and only positive findings are reported. The test for blood on the chemical analytic portion of urinalysis may also be positive due to hemoglobinuria and myoglobinuria and if red blood cells are present they are quantified by microscopic examination. Performed By: #### 4 6625 ####[facility] [address] [place] [address] Abbi Choudhary M.D. [id number] Ketones Ql (U) Negative Normal Negative [facility] Comment on above: Order Comment: Micro scopic examination is performed on all urinalysis samples and only positive findings are reported. The test for blood on the chemical analytic portion of urinalysis may also be positive due to hemoglobinuria and myoglobinuria and if red blood cells are present they are quantified by microscopic examination. Performed By: #### 4 6625 #### LAB [address] [place] [address] Abbi Choudhary M.D. [id number] Leukocyte esterase Test strip Ql (U) Negative Normal Negative [facility] Comment on above: Order Comment: Micro scopic examination is performed on all urinalysis samples and only positive findings are reported. The test for blood on the chemical analytic portion of urinalysis may also be positive due to hemoglobinuria and myoglobinuria and if red blood cells are present they are quantified by microscopic examination. Performed By: #### 4 6625 ####[facility] [address] [place] [address] Abbi Choudhary M.D. [id number] MUCUS, URINE Rare Normal None Seen, Rare [facility] Comment on above: Order Comment: Micro scopic examination is performed on all urinalysis samples and only positive findings are reported. The test for blood on the chemical analytic portion of urinalysis may also be positive due to hemoglobinuria and myoglobinuria and if red blood cells are present they are quantified by microscopic examination. Performed By: #### 4 6625 ####[facility] [address] [place] [address] Abbi Choudhary M.D. [id number] NITRITE, URINE Negative Normal Negative [facility] Comment on above: Order Comment: Micro scopic examination is performed on all urinalysis samples and only positive findings are reported. The test for blood on the chemical analytic portion of urinalysis may also be positive due to hemoglobinuria and myoglobinuria and if red blood cells are present they are quantified by microscopic examination. Performed By: #### 4 6625 ####[facility] [address] [place] [address] Abbi Choudhary M.D. [id number] pH (U) 5.0 [pH] Normal 5.0-7.0 [facility] Comment on above: Order Comment: Micro scopic examination is performed on all urinalysis samples and only positive findings are reported. The test for blood on the chemical analytic portion of urinalysis may also be positive due to hemoglobinuria and myoglobinuria and if red blood cells are present they are quantified by microscopic examination. Performed By: #### 4 6625 ####[facility] [address] [place] [address] Abbi Choudhary M.D. [id number] Protein (U) [Mass/Vol] 100 mg/dL Abnormal Negative [facility] Comment on above: Order Comment: Micro scopic examination is performed on all urinalysis samples and only positive findings are reported. The test for blood on the chemical analytic portion of urinalysis may also be positive due to hemoglobinuria and myoglobinuria and if red blood cells are present they are quantified by microscopic examination. Performed By: #### 4 6625 ####[facility] [address] [place] [address] Abbi Choudhary M.D. [id number] RBC LM.HPF (Urine sed) [#/Area] 1 /[HPF] Normal 0-3 [facility] Comment on above: Order Comment: Micro scopic examination is performed on all urinalysis samples and only positive findings are reported. The test for blood on the chemical analytic portion of urinalysis may also be positive due to hemoglobinuria and myoglobinuria and if red blood cells are present they are quantified by microscopic examination. Performed By: #### 4 6625 ####[facility] [address] [place] [address] Abbi Choudhary M.D. [id number] Specific gravity (U) [Rel density] 1.017 Normal 1.005-1.025 [facility] Comment on above: Order Comment: Micro scopic examination is performed on all urinalysis samples and only positive findings are reported. The test for blood on the chemical analytic portion of urinalysis may also be positive due to hemoglobinuria and myoglobinuria and if red blood cells are present they are quantified by microscopic examination. Performed By: #### 4 6625 ####[facility] [address] [place], [place] [address] Abbi Choudhary M.D. [id number] SQUAMOUS EPITHELIAL < Normal 0-4 [facility] Comment on above: Order Comment: Micro scopic examination is performed on all urinalysis samples and only positive findings are reported. The test for blood on the chemical analytic portion of urinalysis may also be positive due to hemoglobinuria and myoglobinuria and if red blood cells are present they are quantified by microscopic examination. Performed By: #### 4 6625 ####[facility] [address] [place], [place] [address] Abbi Choudhary M.D. [id number] UROBILINOGEN, URINE <2.0 Normal <2.0 [facility] Comment on above: Order Comment: Micro scopic examination is performed on all urinalysis samples and only positive findings are reported. The test for blood on the chemical analytic portion of urinalysis may also be positive due to hemoglobinuria and myoglobinuria and if red blood cells are present they are quantified by microscopic examination. Performed By: #### 4 6625 ####[facility] [address] [place], [place] [address] Abbi Choudhary M.D. [id number] WBC LM.HPF (Urine sed) [#/Area] 1 /[HPF] Normal 0-5 [facility] Comment on above: Order Comment: Micro scopic examination is performed on all urinalysis samples and only positive findings are reported. The test for blood on the chemical analytic portion of urinalysis may also be positive due to hemoglobinuria and myoglobinuria and if red blood cells are present they are quantified by microscopic examination. Performed By: #### 4 6625 ####[facility] [address] [place], [place] [address] Abbi Choudhary M.D. [id number] UrinalysisOrdered By: Jessie Bae on 01-14-2024 Bacteria Auto Ql (U) None Seen None Se en /hpf [facility] Bilirubin Ql (U) Negative Negative [facility] Clarity Refractometry automated (U) Clear Clear [facility] Color (U) Yellow Colorless, Yellow [facility] Epithelial cells.squamous Auto (Urine sed) [#/Area] [facility] Glucose Auto test strip (U) [Mass/Vol] 150 mg/dL Abnormal Negative [facility] Hemoglobin Auto test strip Ql (U) Negative Negative [facility] Interpretation and review of laboratory results Abnormal [facility] Ketones (U) [Mass/Vol] Negative Negative mg/dL [facility] Leukocyte esterase Auto test strip Ql (U) Negative Negative [facility] Mucus Auto (Urine sed) [#/Area] Rare None Seen, Rare /lpf [facility] Nitrite Auto test strip Ql (U) Negative Negative [facility] pH (U) 5.0 [pH] 5.0 - 7.0 [facility] Protein (U) [Mass/Vol] 100 mg/dL Abnormal Negative [facility] RBC Auto (Urine sed) [#/Area] 1 [facility] Specific gravity (U) [Rel density] 1.017 1.005 - 1.025 [facility] Urobilinogen (U) [Mass/Vol] mg/dL NINF - 2.0 mg/dL [facility] WBC Auto (Urine sed) [#/Area] 1 [facility] Microscopic examinat ion is performed on all urinalysis samples and only positive findings are reported. The test for blood on the chemical analytic portion of urinalysis may also be positive due to hemoglobinuria and myoglobinuria and if red blood cells are present they are quantified by microscopic examination. [facility] CBCon 01-13-2024 AUTO NRBC 0.0 % Normal [facility] Comment on above: Performed By: #### 4 [id number] #### LAB [address] [place], [place] [address] Abbi Choudhary M.D. [id number] AUTO NRBC ABS COUNT 0.00 K/mcL Normal 0.00-0.00 [facility] Comment on above: Performed By: #### 4 [id number] ####[facility] [address] [place], [place] [address] Abbi Choudhary M.D. [id number] Erythrocyte distribution width (RBC) [Ratio] 13.1 % Normal 11.6-14.8 [facility] Comment on above: Performed By: #### 4 [id number] #### LAB [address] [place], [place] [address] Abbi Choudhary M.D. [id number] Hematocrit (Bld) [Volume fraction] 27.5 % Low 36.0-46.0 [facility] Comment on above: Performed By: #### 4 [id number] ####[facility] [address] [place], [place] [address] Abbi Choudhary M.D. [id number] Hemoglobin (Bld) [Mass/Vol] 9.3 g/dL Low 12.0-16.0 [facility] Comment on above: Performed By: #### 4 5218 ####[facility] [address] [place], [place] [address] Abbi Choudhary M.D. [id number] MCH (RBC) [Entitic mass] 31.1 pg Normal 26.0-34.0 [facility] Comment on above: Performed By: #### 4 [id number] ####[facility] [address] [place], [place] [address] Abbi Choudhary M.D. [id number] MCV (RBC) [Entitic vol] 92.0 fL Normal 80.0-100.0 [facility] Comment on above: Performed By: #### 4 5218 ####[facility] [address] [place], [place] [address] Abbi Choudhary M.D. [id number] MEAN CORPUSCULAR HEMOGLOBIN CONC 33.8 g/dL Normal 31.0-37.0 [facility] Comment on above: Performed By: #### 4 [id number] ####[facility] [address] [place], [place] [address] Abbi Choudhary M.D. [id number] Platelet mean volume (Bld) [Entitic vol] 8.6 fL Low 9.4-12.4 [facility] Comment on above: Performed By: #### 4 [id number] ####[facility] [address] [place], [place] [address] Abbi Choudhary M.D. [id number] Platelets (Bld) [#/Vol] 238 10*3/uL Normal 150-400 [facility] Comment on above: Performed By: #### 4 [id number] ####[facility] [address] [place], [place] [address] Abbi Choudhary M.D. [id number] RBC (Bld) [#/Vol] 2.99 10*6/uL Low 4.00-5.20 [facility] Comment on above: Performed By: #### 4 [id number] ####[facility] [address] [place], [place] [address] Abbi Choudhary M.D. [id number] WBC (Bld) [#/Vol] 7.09 10*3/uL Normal 4.50-11.00 [facility] Comment on above: Performed By: #### 4 [id number] ####[facility] [address] [place], [place] [address] Abbi Choudhary M.D. [id number] CBC panel Auto (Bld)on 01-12 Erythrocyte distribution width (RBC) [Entitic vol] 13.1 % 11.6 - 14.8 % [facility] Hematocrit (Bld) [Volume fraction] 27.5 % Low 36.0 - 46.0 % [facility] Hemoglobin (Bld) [Mass/Vol] 9.3 g/dL Low 12.0 - 16.0 g/dL [facility] Interpretation and review of laboratory results Abnormal [facility] MCH (RBC) [Entitic mass] 31.1 pg 26.0 - 34.0 pg [facility] MCHC (RBC) [Mass/Vol] 33.8 g/dL 31.0 - 37.0 g/dL [facility] MCV (RBC) [Entitic vol] 92.0 fL 80.0 - 100.0 fL [facility] Nucleated RBC (Bld) [#/Vol] 0.00 10*3/uL [facility] Nucleated RBC/100 WBC (Bld) [Ratio] 0.0 % [facility] Platelet mean volume (Bld) [Entitic vol] 8.6 fL Low 9.4 - 12.4 fL [facility] Platelets (Bld) [#/Vol] 238 10*3/uL [facility] RBC (Bld) [#/Vol] 2.99 10*6/uL Low [facility] WBC (Bld) [#/Vol] 7.09 10*3/uL [facility] ealth [facility] CONSULTon 01-13-2024 CONSULT Normal [facility] CT FOOT LEFT WITHOUT CONTRAS Ton 01-13-2024 CT FOOT LEFT WITHOUT CONTRAST Normal [facility] Comment on above: Order Comment: Injur y/Trauma [...] as described above. TROY/xochitl Workstation ID: [id number] EXAMINATION: CT FOOT LEFT WITHOUT CONTRAST HISTORY: [...] The hardware is incompletely included on the [id number] for this study. There is cystic change [...] CT for evaluation of the soft tissues. [facility] Preston Rajan MD - 01/13/2024 EXAMINATION: CT [...] The hardware is incompletely included on the [id number] for this study. There is cystic change [...] as described above. TROY/xochitl Workstation ID: [id number] [facility] Radiology Study observation (narrative) [facility] CT Foot - left WO contrastOr dered By: Preston Rajan on 01-13-2024 [facility] Work Phone: ECG 12 Leadon 01-13-2024 Atrial Rate 97 BPM [facility] P [place]ison 55 degrees [facility] P-R Interval 190 ms [facility] Q-T Interval 346 ms [facility] QRS Duration 84 ms [facility] QTC Calculation (Bezet) 439 ms [facility] R Addison 18 degrees [facility] T Addison 27 degrees [facility] Ventricular Rate 97 BPM [facility] Normal sinus rhythm Possible Left atrial enlargement Confirmed by Monique Pillai MD ([id number]) on 01/13/2024 8:52:41 AM [facility] Glucose (Bld) [Mass/Vol]on 0 01-13-2024 Glucose [Mass/Vol] 177 mg/dL High 65 - 99 mg/dL [facility] Interpretation and review of laboratory results Abnormal [facility] Glucose [Mass/Vol] 119 mg/dL High 65 - 99 mg/dL [facility] Interpretation and review of laboratory results Abnormal [facility] Glucose [Mass/Vol] 116 mg/dL High 65 - 99 mg/dL [facility] Interpretation and review of laboratory results Abnormal [facility] Glucose [Mass/Vol] 103 mg/dL High 65 - 99 mg/dL [facility] Interpretation and review of laboratory results Abnormal [facility] Glucose [Mass/Vol] 122 mg/dL High 65 - 99 mg/dL [facility] Interpretation and review of laboratory results Abnormal [facility] POC GLUCOSE - RALSon 024 Glucose [Mass/Vol] 177 mg/dL High [address] [place] [address] Comment on above: Performed By: #### 4 [id number] ####[facility] [address] [place], [place] [address] Abbi Choudhary M.D. [id number] Glucose [Mass/Vol] 119 mg/dL High [address] [place] [address] Comment on above: Performed By: #### 4 [id number] ####[facility] [address] [place], [place] [address] Abbi Choudhary M.D. [id number] Glucose [Mass/Vol] 116 mg/dL [address] Comment on above: Performed By: #### 4 [id number] ####[facility] [address] [place], [place] [address] Abbi Choudhary M.D. [id number] Glucose [Mass/Vol] 103 mg/dL [address] Comment on above: Performed By: #### 4 [id number] ####[facility] [address] [place], [place] [address] Abbi Choudhary M.D. [id number] Glucose [Mass/Vol] 122 mg/dL [address] Comment on above: Performed By: #### 4 [id number] ####[facility] [address] [place], [place] [address] Abbi Choudhary M.D. [id number] RENAL FUNCTION PANEL 01-12 Albumin [Mass/Vol] 3.1 g/dL Low 3.2-5.2 [facility] Comment on above: Order Comment: [facility] Services has implemented the eGFR calculation approach that does not have a coefficient for race that conforms to the NKF-ASN Task Force Recommendations. Performed By: #### 4 6449 ####[facility] [address] [place], [place] [address]Alisia Choudhary M.D. [id number] Anion gap [Moles/Vol] 16 mmol/L Normal 10-20 [facility] Comment on above: Order Comment: [facility] Laboratory [facility] has implemented the eGFR calculation approach that does not have a coefficient for race that conforms to the NKF-ASN Task Force Recommendations. Performed By: #### 4 [id number] ####[facility] [address] [place], [place] [address] Abbi Choudhary M.D. [id number] Calcium [Mass/Vol] 8.4 mg/dL Normal 8.4-10.2 [facility] Comment on above: Order Comment: [facility] has implemented the eGFR calculation approach that does not have a coefficient for race that conforms to the NKF-ASN Task Force Recommendations. Performed By: #### 4 [id number] ####[facility] [address] [place], [place] [address] Abbi Choudhary M.D. [id number] Chloride [Moles/Vol] 105 mmol/L Normal 98-108 [facility] Comment on above: Order Comment: [facility] has implemented the eGFR calculation approach that does not have a coefficient for race that conforms to the NKF-ASN Task Force Recommendations. Performed By: #### 4 6449 ####[facility] [address] [place], [place] [address] Abbi Choudhary M.D. [id number] Creatinine [Mass/Vol] 1.32 mg/dL High 0.40-1.10 [facility] Comment on above: Order Comment: [facility] has implemented the eGFR calculation approach that does not have a coefficient for race that conforms to the NKF-ASN Task Force Recommendations. Performed By: #### 4 6449 ####[facility] [address] [place], [place] [address] Abbi Choudhary M.D. [id number] EGFR 51 mL/min/1.73 m2 Low >=60 [facility] Comment on above: Order Comment: [facility] has implemented the eGFR calculation approach that does not have a coefficient for race that conforms to the NKF-ASN Task Force Recommendations. Result Comment: Lorie mated GFR was calculated using the 2020 CKD-EPI creatinine equation. Performed By: #### 4 [id number] ####[facility] [address] [place], [place] [address] Abbi Choudhary M.D. [id number] Glucose [Mass/Vol] 157 mg/dL High 65-99 [facility] Comment on above: Order Comment: [facility] has implemented the eGFR calculation approach that does not have a coefficient for race that conforms to the NKF-ASN Task Force Recommendations. Performed By: #### 4 6449 ####[facility] [address] [place], [place] [address] Abbi Choudhary M.D. [id number] HCO3 (Bld) [Moles/Vol] 21 mmol/L Normal 21-32 [facility] Comment on above: Order Comment: [facility] has implemented the eGFR calculation approach that does not have a coefficient for race that conforms to the NKF-ASN Task Force Recommendations. Performed By: #### 4 6449 ####[facility] [address] [place], [place] [address] Abbi Choudhary M.D. [id number] Phosphate [Mass/Vol] 3.7 mg/dL Normal 2.7-4.5 [facility] Comment on above: Order Comment: [facility] has implemented the eGFR calculation approach that does not have a coefficient for race that conforms to the NKF-ASN Task Force Recommendations. Performed By: #### 4 6449 ####[facility] [address] [place], [place] [address] Abbi Choduhary M.D. [id number] Potassium [Moles/Vol] 4.1 mmol/L Normal 3.5-5.1 [facility] Comment on above: Order Comment: [facility] has implemented the eGFR calculation approach that does not have a coefficient for race that conforms to the NKF-ASN Task Force Recommendations. Result Comment: Slig htly Hemolyzed Performed By: #### 4 6449 ####[facility] [address] [place], [place] [address] Abbi Choudhary M.D. [id number] Sodium [Moles/Vol] 138 mmol/L Normal 135-145 [facility] Comment on above: Order Comment: [facility] has implemented the eGFR calculation approach that does not have a coefficient for race that conforms to the NKF-ASN Task Force Recommendations. Performed By: #### 4 6449 ####[facility] [address] [place], [place] [address] Abbi Choudhary M.D. [id number] Urea nitrogen [Mass/Vol] 27 mg/dL High 8-25 [facility] Comment on above: Order Comment: [facility] has implemented the eGFR calculation approach that does not have a coefficient for race that conforms to the NKF-ASN Task Force Recommendations. Performed By: #### 4 6449 ####[facility] [address] [place], [place] [address] Abbi Choudhary M.D. [id number] Urea nitrogen/Creatinine [Mass ratio] 20.5 mg/mg High 10.0-20.0 [facility] Comment on above: Order Comment: [facility] Services has implemented the eGFR calculation approach that does not have a coefficient for race that conforms to the NKF-ASN Task Force Recommendations. Performed By: #### 4 6449 ####[facility] [address] [place], [place] [address] Abbi Choudhary M.D. [id number] Renal function 2000 panelOrd ered By: Alberta Vo on 01-13-2024 Albumin [Mass/Vol] 3.1 g/dL Low 3.2 - 5.2 g/dL [facility] Anion gap [Moles/Vol] 16 mmol/L 10 - 2 0 mmol/L [facility] Calcium [Mass/Vol] 8.4 mg/dL 8.4 - 10. 2 mg/dL [facility] Chloride [Moles/Vol] 105 mmol/L 98 - 10 8 mmol/L [facility] Creatinine [Mass/Vol] 1.32 mg/dL High 0.40 - 1.10 mg/dL [facility] GFR/1.73 sq M.predicted CKD-EPI (S/P/Bld) [Vol rate/Area] 51 Low - PINF [facility] Comment on above: Estimated GFR was ca lculated using the 2020 CKD-EPI creatinine equation. Glucose [Mass/Vol] 157 mg/dL High 65 - 99 mg/dL [facility] HCO3 [Moles/Vol] 21 mmol/L 21 - 32 mmol/L [facility] Interpretation and review of laboratory results Abnormal [facility] Phosphate [Mass/Vol] 3.7 mg/dL 2.7 - 4 .5 mg/dL [facility] Potassium [Moles/Vol] 4.1 mmol/L 3.5 - 5.1 mmol/L [facility] Comment on above: Slightly Hemolyzed Sodium [Moles/Vol] 138 mmol/L 135 - 145 mmol/L [facility] Urea nitrogen [Mass/Vol] 27 mg/dL High 8 - 25 mg/dL [facility] Urea nitrogen/Creatinine [Mass ratio] 20.5 mg/mg High 10.0 - 20.0 [facility] Services has implemented the eGFR calculation approach that does not have a coefficient for race that conforms to the NKF-ASN Task Force Recommendations. [facility] BASIC METABOLIC PANELon 08-2 -2023 Anion gap [Moles/Vol] 14 mmol/L Normal 10-20 [facility] Comment on above: Order Comment: [facility] has implemented the eGFR calculation approach that does not have a coefficient for race that conforms to the NKF-ASN Task Force Recommendations. Performed By: #### 4 6124 ####[facility] [address] [place], [place] [address] Abbi Choudhary M.D. [id number] Calcium [Mass/Vol] 9.0 mg/dL Normal 8.4-10.2 [facility] Comment on above: Order Comment: [facility] has implemented the eGFR calculation approach that does not have a coefficient for race that conforms to the NKF-ASN Task Force Recommendations. Performed By: #### 4 6124 ####[facility] [address] [place], [place] [address] Abbi Choudhary M.D. [id number] Chloride [Moles/Vol] 104 mmol/L Normal 98-108 [facility] Comment on above: Order Comment: [facility] has implemented the eGFR calculation approach that does not have a coefficient for race that conforms to the NKF-ASN Task Force Recommendations. Performed By: #### 4 6124 ####[facility] [address] [place], [place] [address] Abbi Choudhary M.D. [id number] Creatinine [Mass/Vol] 1.06 mg/dL Normal 0.40-1.10 [facility] Comment on above: Order Comment: [facility] has implemented the eGFR calculation approach that does not have a coefficient for race that conforms to the NKF-ASN Task Force Recommendations. Performed By: #### 4 6124 ####[facility] [address] [place], [place] [address] Abbi Choudhary M.D. [id number] EGFR 66 mL/min/1.73 m2 Normal >=60 [facility] Comment on above: Order Comment: [facility] has implemented the eGFR calculation approach that does not have a coefficient for race that conforms to the NKF-ASN Task Force Recommendations. Result Comment: Lorie mated GFR was calculated using the 2020 CKD-EPI creatinine equation. Performed By: #### 4 [id number] ####[facility] [address] [place] [address] Abbi Choudhary M.D. [id number] Glucose [Mass/Vol] 109 mg/dL High 65-99 [facility] Comment on above: Order Comment: [facility] has implemented the eGFR calculation approach that does not have a coefficient for race that conforms to the NKF-ASN Task Force Recommendations. Performed By: #### 4 6124 ####[facility] [address] [place], [place] [address] Abbi Choudhary M.D. [id number] HCO3 (Bld) [Moles/Vol] 26 mmol/L Normal 21-32 [facility] Comment on above: Order Comment: [facility] has implemented the eGFR calculation approach that does not have a coefficient for race that conforms to the NKF-ASN Task Force Recommendations. Performed By: #### 4 6124 ####[facility] [address] [place], [place] [address] Abbi Choudhary M.D. [id number] Potassium [Moles/Vol] 4.1 mmol/L Normal 3.5-5.1 [facility] Comment on above: Order Comment: [facility] Services has implemented the eGFR calculation approach that does not have a coefficient for race that conforms to the NKF-ASN Task Force Recommendations. Performed By: #### 4 6124 ####[facility] [address] [place], [place] [address] Abbi Choudhary M.D. [id number] Sodium [Moles/Vol] 140 mmol/L Normal 135-145 [facility] Comment on above: Order Comment: [facility] Services has implemented the eGFR calculation approach that does not have a coefficient for race that conforms to the NKF-ASN Task Force Recommendations. Performed By: #### 4 6124 ####[facility] [address] [place], [place] [address] Abbi Choudhary M.D. [id number] Urea nitrogen [Mass/Vol] 24 mg/dL Normal 8-25 [facility] Comment on above: Order Comment: [facility] Services has implemented the eGFR calculation approach that does not have a coefficient for race that conforms to the NKF-ASN Task Force Recommendations. Performed By: #### 4 6124 ####[facility] [address] [place], [place] [address] Abbi Choudhary M.D. [id number] Urea nitrogen/Creatinine [Mass ratio] 22.6 mg/mg High 10.0-20.0 [facility] Comment on above: Order Comment: [facility] has implemented the eGFR calculation approach that does not have a coefficient for race that conforms to the NKF-ASN Task Force Recommendations. Performed By: #### 4 [id number] ####[facility] [address] [place], [place] [address] Abbi Choudhary M.D. [id number] Basic metabolic 2000 panelon 01-12-2024 Anion gap [Moles/Vol] 14 mmol/L 10 - 2 0 mmol/L [facility] Calcium [Mass/Vol] 9.0 mg/dL 8.4 - 10. 2 mg/dL [facility] Chloride [Moles/Vol] 104 mmol/L 98 - 10 8 mmol/L [facility] Creatinine [Mass/Vol] 1.06 mg/dL 0.40 - 1.10 mg/dL [facility] GFR/1.73 sq M.predicted CKD-EPI (S/P/Bld) [Vol rate/Area] 66 - PINF [facility] Comment on above: Estimated GFR was ca lculated using the 2020 CKD-EPI creatinine equation. Glucose [Mass/Vol] 109 mg/dL High 65 - 99 mg/dL [facility] HCO3 [Moles/Vol] 26 mmol/L 21 - 32 mmol/L [facility] Interpretation and review of laboratory results Abnormal [facility] Potassium [Moles/Vol] 4.1 mmol/L 3.5 - 5.1 mmol/L [facility] Sodium [Moles/Vol] 140 mmol/L 135 - 145 mmol/L [facility] Urea nitrogen [Mass/Vol] 24 mg/dL 8 - 25 mg/dL [facility] Urea nitrogen/Creatinine [Mass ratio] 22.6 mg/mg High 10.0 - 20.0 [facility] has implemented the eGFR calculation approach that does not have a coefficient for race that conforms to the NKF-ASN Task Force Recommendations. [facility] CBC Auto Differentialon 12-24 Basophils (Bld) [#/Vol] 0.06 10*3/uL [facility] Basophils/100 WBC (Bld) 0.6 % [facility] Eosinophils (Bld) [#/Vol] 0.63 10*3/uL High [facility] Eosinophils/100 WBC (Bld) 6.5 % [facility] Erythrocyte distribution width (RBC) [Entitic vol] 12.9 % 11.6 - 14.8 % [facility] Hematocrit (Bld) [Volume fraction] 34.6 % Low 36.0 - 46.0 % [facility] Hemoglobin (Bld) [Mass/Vol] 11.7 g/dL Low 12.0 - 16.0 g/dL [facility] Immature granulocytes (Bld) [#/Vol] 0.05 10*3/uL [facility] Immature granulocytes/100 WBC (Bld) 0.50 % [facility] Comment on above: The IG parameter is the percentage of metamyelocytes, myelocytes and promyelocytes. An immature granulocyte count (IG) of 1% or more suggests the possibility of infection, an IG count of 3% is very likely related to an infection. Interpretation and review of laboratory results Abnormal [facility] Lymphocytes (Bld) [#/Vol] 1.77 10*3/uL [facility] Lymphocytes/100 WBC (Bld) 18.3 % [facility] MCH (RBC) [Entitic mass] 31.0 pg 26.0 - 34.0 pg [facility] MCHC (RBC) [Mass/Vol] 33.8 g/dL 31.0 - 37.0 g/dL [facility] MCV (RBC) [Entitic vol] 91.5 fL 80.0 - 100.0 fL [facility] Monocytes (Bld) [#/Vol] 0.47 10*3/uL [facility] Monocytes/100 WBC (Bld) 4.9 % [facility] Neutrophils (Bld) [#/Vol] 6.70 10*3/uL [facility] Neutrophils/100 WBC (Bld) 69.2 % [facility] Nucleated RBC (Bld) [#/Vol] 0.00 10*3/uL [facility] Nucleated RBC/100 WBC (Bld) [Ratio] 0.0 % [facility] Platelet mean volume (Bld) [Entitic vol] 9.1 fL Low 9.4 - 12.4 fL [facility] Platelets (Bld) [#/Vol] 291 10*3/uL [facility] RBC (Bld) [#/Vol] 3.78 10*6/uL Low [facility] WBC (Bld) [#/Vol] 9.68 10*3/uL [facility] eah [facility] CBC WITH AUTO DIFFERENTIALon 01-12-2024 AUTO NRBC 0.0 % Normal [facility] Comment on above: Performed By: #### L [id number] ####[facility] [address] [place] [address] Abbi Choudhary M.D. [id number] AUTO NRBC ABS COUNT 0.00 K/mcL Normal 0.00-0.00 [facility] Comment on above: Performed By: #### L [id number] ####[facility] [address] [place], [place] [address] Abbi Choudhary M.D. [id number] BASOPHILS ABSOLUTE COUNT 0.06 K/mcL Normal 0.00-0.30 [facility] Comment on above: Performed By: #### L [id number] ####[facility] [address] [place], [place] [address] Abbi Choudhary M.D. [id number] Basophils/100 WBC (Bld) 0.6 % Normal [facility] Comment on above: Performed By: #### L [id number] ####[facility] [address] [place] [address] Abbi Choudhary M.D. [id number] Eosinophils (Bld) [#/Vol] 0.63 10*3/uL High 0.00-0.50 [facility] Comment on above: Performed By: #### L [id number] ####[facility] [address] [place] [address] Abbi Choudhary M.D. [id number] Eosinophils/100 WBC (Bld) 6.5 % Normal [facility] Comment on above: Performed By: #### L [id number] ####[facility] [address] [place] [address] Abbi Choudhary M.D. [id number] Erythrocyte distribution width (RBC) [Ratio] 12.9 % Normal 11.6-14.8 [facility] Comment on above: Performed By: #### L [id number] ####[facility] [address] [place] [address] Abbi Choudhary M.D. [id number] Hematocrit (Bld) [Volume fraction] 34.6 % Low 36.0-46.0 [facility] Comment on above: Performed By: #### L [id number] ####[facility] [address] [place] [address] Abbi Choudhary M.D. [id number] Hemoglobin (Bld) [Mass/Vol] 11.7 g/dL Low 12.0-16.0 [facility] Comment on above: Performed By: #### L [id number] ####[facility] [address] [place] [address] Abbi Choudhary M.D. [id number] IG ABSOLUTE 0.05 K/mcL Normal 0.00-0.30 [facility] Comment on above: Performed By: #### L [id number] ####[facility] [address] [place] [address] Abbi Choudhary M.D. [id number] IG PERCENT 0.50 % Normal [facility] Comment on above: Result Comment: The IG parameter is the percentage of metamyelocytes, myelocytes and promyelocytes. An immature granulocyte count (IG) of 1% or more suggests the possibility of infection, an IG count of 3% is very likely related to an infection. Performed By: #### L [id number] ####[facility] [address] [place] [address] Abbi Choudhary M.D. [id number] Lymphocytes (Bld) [#/Vol] 1.77 10*3/uL Normal 0.90-4.00 [facility] Comment on above: Performed By: #### L [id number] ####[facility] [address] [place] [address] Abbi Choudhary M.D. [id number] Lymphocytes/100 WBC (Bld) 18.3 % Normal [facility] Comment on above: Performed By: #### L [id number] ####[facility] [address] [place] [address] Abbi Choudhary M.D. [id number] MCH (RBC) [Entitic mass] 31.0 pg Normal 26.0-34.0 [facility] Comment on above: Performed By: #### L [id number] ####[facility] [address] [place] [address] Abbi Choudhary M.D. [id number] MCV (RBC) [Entitic vol] 91.5 fL Normal 80.0-100.0 [facility] Comment on above: Performed By: #### L [id number] ####[facility] [address] [place] [address] Abbi Choudhary M.D. [id number] MEAN CORPUSCULAR HEMOGLOBIN CONC 33.8 g/dL Normal 31.0-37.0 [facility] Comment on above: Performed By: #### L [id number] ####[facility] [address] [place] [address] Abbi Choudhary M.D. [id number] Monocytes (Bld) [#/Vol] 0.47 10*3/uL Normal 0.30-0.90 [facility] Comment on above: Performed By: #### L [id number] ####[facility] [address] [place], [place] [address] Abbi Choudhary M.D. [id number] Monocytes/100 WBC (Bld) 4.9 % Normal [facility] Comment on above: Performed By: #### L [id number] ####[facility] [address] [place], [place] [address] Abbi Choudhary M.D. [id number] NEUTROPHILS ABSOLUTE COUNT 6.70 K/mcL Normal 1.70-7.00 [facility] Comment on above: Performed By: #### L [id number] ####[facility] [address] [place], [place] [address] Abbi Choudhary M.D. [id number] Neutrophils/100 WBC (Bld) 69.2 % Normal [facility] Comment on above: Performed By: #### L [id number] ####[facility] [address] [place], [place] [address] Abbi Choudhary M.D. [id number] Platelet mean volume (Bld) [Entitic vol] 9.1 fL Low 9.4-12.4 [facility] Comment on above: Performed By: #### L [id number] ####[facility] [address] [place], [place] [address] Abbi Choudhary M.D. [id number] Platelets (Bld) [#/Vol] 291 10*3/uL Normal 150-400 [facility] Comment on above: Performed By: #### L [id number] ####[facility] [address] [place], [place] [address] Abbi Choudhary M.D. [id number] RBC (Bld) [#/Vol] 3.78 10*6/uL Low 4.00-5.20 [facility] Comment on above: Performed By: #### L [id number] ####[facility] [address] [place], [place] [address] Abbi Choudhary M.D. [id number] WBC (Bld) [#/Vol] 9.68 10*3/uL Normal 4.50-11.00 [facility] Comment on above: Performed By: #### L [id number] ####[facility] [address] [place], [place] [address] Abbi Choudhary M.D. [id number] CRP [Mass/Vol]on 01-12-2024 Interpretation and review of laboratory results Normal [facility] CRP, INFLAMMATIONon 01-12-20 CRP [Mass/Vol] 8.2 mg/L Normal 0.0-10.0 [facility] Comment on above: Performed By: #### 4 [id number] ####[facility] [address] [place], [place] [address] Abbi Choudhary M.D. [id number] CRP, Inflammationon 01-12-20 CRP [Mass/Vol] 8.2 mg/L 0.0 - 10.0 mg/L [facility] ED Prov Noteon 01-12-2024 ED Prov Note Normal [facility] ESR Westergren method (Bld) [Velocity]on 01-12-2024 ESR (Bld) [Velocity] 40 mm/h [facility] Interpretation and review of laboratory results Abnormal [facility] Glucose (Bld) [Mass/Vol]on 0 01-12-2024 Glucose [Mass/Vol] 92 mg/dL 65 - 99 mg/dL [facility] Interpretation and review of laboratory results Normal [facility] Gold Topon 01-12-2024 Extra Tube Hold for add-ons. [facility] Comment on above: Auto resulted. [facility] H AND Paulino 01-12-2024 H AND P Normal [facility] HEMOGLOBIN A1Con 01-12-2024 Glucose [Mass/Vol] 220 mg/dL High 74-114 [facility] Comment on above: Performed By: #### 4 8202 ####[facility] [address] [place], [place] [address] Abbi Choudhary M.D. [id number] HbA1c (Bld) [Mass fraction] 9.3 % [facility] 4.2-5.6 [facility] Comment on above: Performed By: #### 4 8202 ####[facility] [address] [place], [place] [address] Abbi Choudhary M.D. [id number] HbA1c (Bld) [Mass fraction]o n 01-12-2024 Average glucose Estimated from glycated hemoglobin (Bld) [Mass/Vol] 220 mg/dL High 74 - 114 mg/dL [facility] Interpretation and review of laboratory results Abnormal [facility] Hemoglobin A1con 01-12-2024 HbA1c (Bld) [Mass fraction] 9.3 % High 4.2 - 5.6 % [facility] No Panel Informationon 01-11 Extra Tube Hold for add-ons. [facility] Comment on above: Auto resulted. [facility] POC GLUCOSE - RALSon 024 Glucose [Mass/Vol] 92 mg/dL Normal 65-99 [facility] Comment on above: Performed By: #### 4 6932 ####[facility] [address] [place], [place] [address] Abbi Choudhary M.D. [id number] SEDIMENTATION RATEon 024 SEDIMENTATION RATE, ERYTHROCYTE 40 mm/hr High 0-20 [facility] Comment on above: Performed By: #### 4 6477 ####[facility] [address] [place], [place] [address] Abbi Choudhary M.D. [id number] XR FOOT LEFT 3+ VIEWS (STAND ILIA)on 01-12-2024 XR FOOT LEFT 3+ VIEWS (STANDARD) Normal [facility] Comment on above: Order Comment: Injur y/Trauma [...] which is more sensitive. Workstation ID: [id number] EXAMINATION: XR FOOT LEFT 3+ VIEWS (STANDARD) [...] or bony demineralization. Forefoot soft tissue swelling. Vic Sam, DO - 01/12/2024 EXAMINATION: XR FOOT LEFT [...] which is more sensitive. Workstation ID: [id number] [facility] Radiology Study observation (narrative) [facility] XR Foot - left 3 ViewsOrdere d By: Vic Mac on 01-12-2024 [facility] Work Phone: ED Prov Noteon 01-10-2024 ED Prov Note Normal [facility] XR FOOT LEFT 3+ VIEWS (STAND ILIA)on 01-09-2024 XR FOOT LEFT 3+ VIEWS (STANDARD) Normal [facility] Comment on above: Order Comment: Injur y/Trauma or Illness?:Illness/OtherHow long have you had these symptoms (acute/chronic)?:AcuteReason for exam?:1st toe painHistory of cancer?:uSurgeries, chemotherapy, or radiation?:pacemakerType of Exam?:InitialAdditional signs and symptoms?:1st toe pain BASIC METABOLIC PANELon 11-22 Anion gap [Moles/Vol] 15 mmol/L Normal 10-20 [facility] Comment on above: Order Comment: [facility] has implemented the eGFR calculation approach that does not have a coefficient for race that conforms to the NKF-ASN Task Force Recommendations. Performed By: #### 4 6124 ####[facility] [address] [place], [place] [address] Abbi Choudhary M.D. [id number] Calcium [Mass/Vol] 9.0 mg/dL Normal 8.4-10.2 [facility] Comment on above: Order Comment: [facility] has implemented the eGFR calculation approach that does not have a coefficient for race that conforms to the NKF-ASN Task Force Recommendations. Performed By: #### 4 6124 ####[facility] [address] [place], [place] [address] Abbi Choudhary M.D. [id number] Chloride [Moles/Vol] 100 mmol/L Normal 98-108 [facility] Comment on above: Order Comment: [facility] has implemented the eGFR calculation approach that does not have a coefficient for race that conforms to the NKF-ASN Task Force Recommendations. Performed By: #### 4 6124 ####[facility] [address] [place], [place] [address] Abbi Choudhary M.D. [id number] Creatinine [Mass/Vol] 1.27 mg/dL High 0.40-1.10 [facility] Comment on above: Order Comment: [facility] has implemented the eGFR calculation approach that does not have a coefficient for race that conforms to the NKF-ASN Task Force Recommendations. Performed By: #### 4 6124 ####[facility] [address] [place], [place] [address] Abbi Choudhary M.D. [id number] EGFR 53 mL/min/1.73 m2 Low >=60 [facility] Comment on above: Order Comment: [facility] has implemented the eGFR calculation approach that does not have a coefficient for race that conforms to the NKF-ASN Task Force Recommendations. Result Comment: Lorie mated GFR was calculated using the 2020 CKD-EPI creatinine equation. Performed By: #### 4 6124 ####[facility] [address] [place], [place] [address] Abbi Choudhary M.D. [id number] Glucose [Mass/Vol] 487 mg/dL Off scale high 65-99 [facility] Comment on above: Order Comment: [facility] has implemented the eGFR calculation approach that does not have a coefficient for race that conforms to the NKF-ASN Task Force Recommendations. Performed By: #### 4 6124 ####[facility] [address] [place], [place] [address] Abbi Choudhary M.D. [id number] HCO3 (Bld) [Moles/Vol] 23 mmol/L Normal 21-32 [facility] Comment on above: Order Comment: [facility] has implemented the eGFR calculation approach that does not have a coefficient for race that conforms to the NKF-ASN Task Force Recommendations. Performed By: #### 4 6124 ####[facility] [address] [place], [place] [address] Abbi Choudhary M.D. [id number] Potassium [Moles/Vol] 5.0 mmol/L Normal 3.5-5.1 [facility] Comment on above: Order Comment: [facility] has implemented the eGFR calculation approach that does not have a coefficient for race that conforms to the NKF-ASN Task Force Recommendations. Performed By: #### 4 6124 ####[facility] [address] [place], [place] [address] Abbi Choudhary M.D. [id number] Sodium [Moles/Vol] 133 mmol/L Low 135-145 [facility] Comment on above: Order Comment: [facility] has implemented the eGFR calculation approach that does not have a coefficient for race that conforms to the NKF-ASN Task Force Recommendations. Performed By: #### 4 6124 ####[facility] [address] [place], [place] [address] Abbi Choudhary M.D. [id number] Urea nitrogen [Mass/Vol] 30 mg/dL High 8-25 [facility] Comment on above: Order Comment: [facility] has implemented the eGFR calculation approach that does not have a coefficient for race that conforms to the NKF-ASN Task Force Recommendations. Performed By: #### 4 6124 ####[facility] [address] [place] [address] Abbi Choudhary M.D. [id number] Urea nitrogen/Creatinine [Mass ratio] 23.6 mg/mg High 10.0-20.0 [facility] Comment on above: Order Comment: [facility] has implemented the eGFR calculation approach that does not have a coefficient for race that conforms to the NKF-ASN Task Force Recommendations. Performed By: #### 4 6124 ####[facility] [address] [place] [address] Abbi Choudhary M.D. [id number] CBC WITH AUTO DIFFERENTIALon 12-07-2023 AUTO NRBC 0.0 % [facility] Comment on above: Performed By: #### L [id number] ####[facility] [address] [place] [address] Abbi Choudhary M.D. [id number] AUTO NRBC ABS COUNT 0.00 K/mcL Normal 0.00-0.00 [facility] Comment on above: Performed By: #### L [id number] ####[facility] [address] [place] [address] Abbi Choudhary M.D. [id number] BASOPHILS ABSOLUTE COUNT 0.08 K/mcL Normal 0.00-0.30 [facility] Comment on above: Performed By: #### L [id number] ####[facility] [address] [place] [address] Abbi Choudhary M.D. [id number] Basophils/100 WBC (Bld) 0.8 % [facility] Comment on above: Performed By: #### L [id number] ####[facility] [address] [place] [address] Abbi Choudhary M.D. [id number] Eosinophils (Bld) [#/Vol] 0.26 10*3/uL Normal 0.00-0.50 [facility] Comment on above: Performed By: #### L [id number] ####[facility] [address] [place] [address] Abbi Choudhary M.D. [id number] Eosinophils/100 WBC (Bld) 2.7 % Normal [facility] Comment on above: Performed By: #### L [id number] ####[facility] [address] [place] [address] Abbi Choudhary M.D. [id number] Erythrocyte distribution width (RBC) [Ratio] 12.6 % Normal 11.6-14.8 [facility] Comment on above: Performed By: #### L [id number] ####[facility] [address] [place] [address] Abbi Choudhary M.D. [id number] Hematocrit (Bld) [Volume fraction] 33.1 % Low 36.0-46.0 [facility] Comment on above: Performed By: #### L [id number] ####[facility] [address] [place] [address] Abbi Choudhary M.D. [id number] Hemoglobin (Bld) [Mass/Vol] 11.2 g/dL Low 12.0-16.0 [facility] Comment on above: Performed By: #### L [id number] ####[facility] [address] [place] [address] Abbi Choudhary M.D. [id number] IG ABSOLUTE 0.05 K/mcL Normal 0.00-0.30 [facility] Comment on above: Performed By: #### L [id number] ####[facility] [address] [place] [address] Abbi Choudhary M.D. [id number] IG PERCENT 0.50 % Normal [facility] Comment on above: Result Comment: The IG parameter is the percentage of metamyelocytes, myelocytes and promyelocytes. An immature granulocyte count (IG) of 1% or more suggests the possibility of infection, an IG count of 3% is very likely related to an infection. Performed By: #### L [id number] ####[facility] [address] [place] [address] Abbi Choudhary M.D. [id number] Lymphocytes (Bld) [#/Vol] 2.06 10*3/uL Normal 0.90-4.00 [facility] Comment on above: Performed By: #### L [id number] ####[facility] [address] [place] [address] Abbi Choudhary M.D. [id number] Lymphocytes/100 WBC (Bld) 21.3 % Normal [facility] Comment on above: Performed By: #### L [id number] ####[facility] [address] [place] [address] Abbi Choudhary M.D. [id number] MCH (RBC) [Entitic mass] 30.5 pg Normal 26.0-34.0 [facility] Comment on above: Performed By: #### L [id number] ####[facility] [address] [place] [address] Abbi Choudhary M.D. [id number] MCV (RBC) [Entitic vol] 90.2 fL Normal 80.0-100.0 [facility] Comment on above: Performed By: #### L [id number] ####[facility] [address] [place] [address] Abbi Choudhary M.D. [id number] MEAN CORPUSCULAR HEMOGLOBIN CONC 33.8 g/dL Normal 31.0-37.0 [facility] Comment on above: Performed By: #### L [id number] ####[facility] [address] [place] [address] Abbi Choudhary M.D. [id number] Monocytes (Bld) [#/Vol] 0.54 10*3/uL Normal 0.30-0.90 [facility] Comment on above: Performed By: #### L [id number] ####[facility] [address] [place] [address] Abbi Choudhary M.D. [id number] Monocytes/100 WBC (Bld) 5.6 % Normal [facility] Comment on above: Performed By: #### L [id number] ####[facility] [address] [place], [place] [address] Abbi Choudhary M.D. [id number] NEUTROPHILS ABSOLUTE COUNT 6.67 K/mcL Normal 1.70-7.00 [facility] Comment on above: Performed By: #### L [id number] ####[facility] [address] [place], [place] [address] Abbi Choudhary M.D. [id number] Neutrophils/100 WBC (Bld) 69.1 % Normal [facility] Comment on above: Performed By: #### L [id number] ####[facility] [address] [place], [place] [address] Abbi Choudhary M.D. [id number] Platelet mean volume (Bld) [Entitic vol] 8.9 fL Low 9.4-12.4 [facility] Comment on above: Performed By: #### L [id number] ####[facility] [address] [place], [place] [address] Abbi Choudhary M.D. [id number] Platelets (Bld) [#/Vol] 271 10*3/uL Normal 150-400 [facility] Comment on above: Performed By: #### L [id number] ####[facility] [address] [place], [place] [address] Abbi Choudhary M.D. [id number] RBC (Bld) [#/Vol] 3.67 10*6/uL Low 4.00-5.20 [facility] Comment on above: Performed By: #### L [id number] ####[facility] [address] [place], [place] [address] Abbi Choudhary M.D. [id number] WBC (Bld) [#/Vol] 9.66 10*3/uL Normal 4.50-11.00 [facility] Comment on above: Performed By: #### L [id number] ####[facility] [address] [place] [address] Abbi Choudhary M.D. [id number] D-DIMER, QUANTITATIVEon 11-22 D-DIMER QUANTITATIVE 0.42 mcg/mL FEU Normal 0.27-0.49 [facility] Comment on above: Order Comment: A D-d [...] D-dimer alone. Performed By: #### 4 5434 #### LAB [address] [place], [place] [address] Abbi Choudhary M.D. [id number] ED Prov Noteon 12-07-2023 ED Prov Note Normal [facility] NT PRO BNPon 12-07-2023 Natriuretic peptide B (Bld) [Mass/Vol] 124 pg/mL Normal 0-300 [facility] Comment on above: Order Comment: Pride Study Cut-offsRule In:< /= 50 Years >450 pg/mL51 Years - 75 Years >900 pg/mL76 Years - 99 Years >1800 pg/mLRule Out:All patients <300 pg/mL Performed By: #### 4 7395 ####[facility] [address] [place], [place] [address] Abbi Choudhary M.D. [id number] POC GLUCOSE - [facility] 024 Glucose [Mass/Vol] 339 mg/dL High 65-99 [facility] Comment on above: Performed By: #### 4 6932 #### LAB [address] [place], [place] [address] Abbi Choudhary M.D. [id number] Glucose [Mass/Vol] 454 mg/dL Off scale high 65-99 [facility] Comment on above: Order Comment: Criti marquita result acted upon time of test. Test performed at bedside. Performed By: #### 4 6932 ####[facility] [address] [place], [place] [address] Abbi Choudhary M.D. [id number] TROPONINon 12-07-2023 TROPONIN T DELTA CHANGE INTERPRETATION Delta troponin requires at least 3 hours between collections. Normal [facility] Comment on above: Performed By: #### 4 6608 ####[facility] [address] [place] [address] Abbi Choudhary M.D. [id number] TROPONIN T NG/L 17 ng/L Off scale high <=14 [facility] Comment on above: Performed By: #### 4 6608 ####[facility] [address] [place] [address] Abbi Choudhary M.D. [id number] BASELINE TROPONIN T NG/L 18 ng/L Off scale high <=14 [facility] Comment on above: Performed By: #### 4 6608 ####[facility] [address] [place] [address] Abbi Choudhary M.D. [id number] TROPONIN T INTERPRETATION Possible acute cardiac injury. [facility] Comment on above: Performed By: #### 4 6608 ####[facility] [address] [place] [address] Abbi Choudhary M.D. [id number] XR CHEST PA/APon 12-07-2023 XR CHEST PA/AP [facility] Comment on above: Order Comment: Injur y/Trauma or Illness?:Illness/OtherHow long have you had these symptoms (acute/chronic)?:AcuteReason for exam?:cpHistory of cancer?:uSurgeries, chemotherapy, or radiation?:pacemakerType of Exam?:InitialAdditional signs and symptoms?:Pt arrived via ems from home with c/o 7/10 mid sternal chest pain that started 2 hours ago. COVID-19, MOLECULARon 2023 SARS-CoV-2 (COVID-19) Ab IA Ql Not detected Normal Not Detected [facility] Comment on above: Result Comment: [...] EBONIE+probe Ql (Resp) Not detected Not Detected [facility] Comment on above: Testing was performe d using the [employer] ID NOW COVID-19 assay on the ID NOW platform. This test has not been approved for use in asymptomatic patients and its performance in this patient population has not been evaluated. Negative results do not rule out the presence of SARS-CoV-2/COVID-19. POC Influenza Aon 12-01-2023 FLUAV Ag Ql (Nph) Negative Negative [facility] POC Influenza Bon 12-01-2023 FLUBV Ag Ql (Nph) Negative Negative [facility] SARS-CoV-2 (COVID-19) RdRp g braden EBONIE+probe Ql (Resp)on 12-01-2023 Interpretation and review of laboratory results Normal [facility] Eye - left US 2Don [facility] Radiology Study observation (narrative) [facility] FUNDUS PHOTOGRAPHY-OUon 10-23 Right Eye Clear. Disc findings include normal observations. Vessel findings include A/V crossing changes, arteriole narrowing. Macula findings include microaneurysms, dot/blot hemorrhages. Cotton Wool Spots, Dot/Blot Hemorrhages. Interval change is baseline. Left Eye Vitreous Hemorrhage. Interval change is baseline. RADIOLOGY [facility] Radiology Study observation (narrative) [facility] C[facility] Summary.on 10-29-2023 Coding Summary. [id number]#1.00TIFF Normal [facility] Coding Summary. [id number]#1.00TIFF Normal [facility] Comment on above: Other Comment: repla sarah with updated mock Coding Summary.on 10-28-2023 Coding Summary. [id number]#1.00TIFF Normal [facility] Comment on above: Other Comment: wrong pt. No Panel Informationon 08-25 IMPRESSION: Soft tissue swelling. No acute fracture evident. Healed, internally fixated distal fibular fracture with sequela of remote collateral ligamentous trauma at the ankle. OLOGY EXAM: XR FOOT LEFT 3 + VIEWS, XR ANKLE LEFT 3+ VIEWS, XR TIBIA AND FIBULA LEFT 2 VIEWS, 08/26/2023 18:44 PM (accession [id number]), 08/26/2023 18:46 PM (accession [id number]), 08/26/2023 18:46 PM (accession [id number]) COMPARISON: Ankle radiographs dated May 16, 2008 [...] LEFT 2 VIEWS, 08/26/2023 18:44 PM (accession [id number]), 08/26/2023 18:46 PM (accession [id number]), 08/26/2023 18:46 PM (accession [id number]) COMPARISON: Ankle radiographs dated May 16, 2008 [...] remote collateral ligamentous trauma at the ankle. [facility] No Panel InformationOrdered By: Kwaku Jay on 08-26-2023 [facility] Work Phone: XR Ankle - left 3 [facility] Radiology Study observation (narrative) [facility] XR Foot - left 3 [facility] Radiology Study observation (narrative) [facility] XR Tibia and Fibula - left V [facility] 08-26-2023 Radiology Study observation (narrative) [facility] CBC panel Auto (Bld)on 03-30 Erythrocyte distribution width (RBC) [Entitic vol] 13.2 % 11.6 - 14.8 % [facility] Hematocrit (Bld) [Volume fraction] 32.6 % Low 36.0 - 46.0 % [facility] Hemoglobin (Bld) [Mass/Vol] 10.5 g/dL Low 12.0 - 16.0 g/dL [facility] Interpretation and review of laboratory results Abnormal [facility] MCH (RBC) [Entitic mass] 30.1 pg 26.0 - 34.0 pg [facility] MCHC (RBC) [Mass/Vol] 32.2 g/dL 31.0 - 37.0 g/dL [facility] MCV (RBC) [Entitic vol] 93.4 fL 80.0 - 100.0 fL [facility] Nucleated RBC (Bld) [#/Vol] 0.00 10*3/uL [facility] Nucleated RBC/100 WBC (Bld) [Ratio] 0.0 % [facility] Platelet mean volume (Bld) [Entitic vol] 8.7 fL Low 9.4 - 12.4 fL [facility] Platelets (Bld) [#/Vol] 296 10*3/uL [facility] RBC (Bld) [#/Vol] 3.49 10*6/uL Low [facility] eah WBC (Bld) [#/Vol] 7.46 10*3/uL [facility] Gl[facility] (Bld) [Mass/Vol]on 05-30-2022 Glucose [Mass/Vol] 232 mg/dL High 65 - 99 mg/dL [facility] Interpretation and review of laboratory results Abnormal [facility] Glucose [Mass/Vol] 306 mg/dL High 65 - 99 mg/dL [facility] Interpretation and review of laboratory results Abnormal [facility] Renal function 2000 panelon 03-30-2023 Albumin [Mass/Vol] 3.2 g/dL 3.2 - 5.2 g/dL [facility] Anion gap [Moles/Vol] 10 mmol/L 10 - 2 0 mmol/L [facility] Calcium [Mass/Vol] 8.7 mg/dL 8.4 - 10. 2 mg/dL [facility] Chloride [Moles/Vol] 106 mmol/L 98 - 10 8 mmol/L [facility] Creatinine [Mass/Vol] 1.29 mg/dL High 0.40 - 1.10 mg/dL [facility] GFR/1.73 sq M.predicted CKD-EPI (S/P/Bld) [Vol rate/Area] 52 Low - PINF [facility] Comment on above: Estimated GFR was ca lculated using the 2020 CKD-EPI creatinine equation. Glucose [Mass/Vol] 338 mg/dL High 65 - 99 mg/dL [facility] HCO3 [Moles/Vol] 25 mmol/L 21 - 32 mmol/L [facility] Interpretation and review of laboratory results Abnormal [facility] Phosphate [Mass/Vol] 3.7 mg/dL 2.7 - 4 .5 mg/dL [facility] Potassium [Moles/Vol] 4.0 mmol/L 3.5 - 5.1 mmol/L [facility] Sodium [Moles/Vol] 137 mmol/L 135 - 145 mmol/L [facility] Urea nitrogen [Mass/Vol] 22 mg/dL 8 - 25 mg/dL [facility] Urea nitrogen/Creatinine [Mass ratio] 17.1 mg/mg 10.0 - 20.0 [facility] Services has implemented the eGFR calculation approach that does not have a coefficient for race that conforms to the NKF-ASN Task Force Recommendations. [facility] Basic metabolic 2000 panelon 03-29-2023 Anion gap [Moles/Vol] 13 mmol/L 10 - 2 0 mmol/L [facility] Calcium [Mass/Vol] 9.2 mg/dL 8.4 - 10. 2 mg/dL [facility] Chloride [Moles/Vol] 106 mmol/L 98 - 10 8 mmol/L [facility] Creatinine [Mass/Vol] 1.07 mg/dL 0.40 - 1.10 mg/dL [facility] GFR/1.73 sq M.predicted CKD-EPI (S/P/Bld) [Vol rate/Area] 65 - PINF [facility] Comment on above: Estimated GFR was ca lculated using the 2020 CKD-EPI creatinine equation. Glucose [Mass/Vol] 122 mg/dL High 65 - 99 mg/dL [facility] HCO3 [Moles/Vol] 25 mmol/L 21 - 32 mmol/L [facility] Interpretation and review of laboratory results Abnormal [facility] Potassium [Moles/Vol] 3.9 mmol/L 3.5 - 5.1 mmol/L [facility] Sodium [Moles/Vol] 140 mmol/L 135 - 145 mmol/L [facility] Urea nitrogen [Mass/Vol] 15 mg/dL 8 - 25 mg/dL [facility] Urea nitrogen/Creatinine [Mass ratio] 14.0 mg/mg 10.0 - 20.0 [facility] has implemented the eGFR calculation approach that does not have a coefficient for race that conforms to the NKF-ASN Task Force Recommendations. [facility] CBC Auto Differentialon 11-0 Basophils (Bld) [#/Vol] 0.06 10*3/uL [facility] Basophils/100 WBC (Bld) 0.6 % [facility] Eosinophils (Bld) [#/Vol] 0.14 10*3/uL [facility] Eosinophils/100 WBC (Bld) 1.5 % [facility] Erythrocyte distribution width (RBC) [Entitic vol] 13.1 % 11.6 - 14.8 % [facility] Hematocrit (Bld) [Volume fraction] 35.1 % Low 36.0 - 46.0 % [facility] Hemoglobin (Bld) [Mass/Vol] 11.9 g/dL Low 12.0 - 16.0 g/dL [facility] Immature granulocytes (Bld) [#/Vol] 0.05 10*3/uL [facility] Immature granulocytes/100 WBC (Bld) 0.50 % [facility] Comment on above: The IG parameter is the percentage of metamyelocytes, myelocytes and promyelocytes. An immature granulocyte count (IG) of 1% or more suggests the possibility of infection, an IG count of 3% is very likely related to an infection. Interpretation and review of laboratory results Abnormal [facility] Lymphocytes (Bld) [#/Vol] 1.49 10*3/uL [facility] Lymphocytes/100 WBC (Bld) 15.8 % [facility] MCH (RBC) [Entitic mass] 30.5 pg 26.0 - 34.0 pg [facility] MCHC (RBC) [Mass/Vol] 33.9 g/dL 31.0 - 37.0 g/dL [facility] MCV (RBC) [Entitic vol] 90.0 fL 80.0 - 100.0 fL [facility] Monocytes (Bld) [#/Vol] 0.49 10*3/uL [facility] Monocytes/100 WBC (Bld) 5.2 % [facility] Neutrophils (Bld) [#/Vol] 7.21 10*3/uL High [facility] Neutrophils/100 WBC (Bld) 76.4 % [facility] Nucleated RBC (Bld) [#/Vol] 0.00 10*3/uL [facility] Nucleated RBC/100 WBC (Bld) [Ratio] 0.0 % [facility] Platelet mean volume (Bld) [Entitic vol] 8.7 fL Low 9.4 - 12.4 fL [facility] Platelets (Bld) [#/Vol] 306 10*3/uL [facility] RBC (Bld) [#/Vol] 3.90 10*6/uL Low [facility] WBC (Bld) [#/Vol] 9.44 10*3/uL [facility] CT Chest Abdomen Pelvis With out Contraston 03-29-2023 1. Normal caliber of the aorta of without evidence of aneurysm. 2. No acute CT findings of the chest, abdomen or pelvis. 3. Chronic findings as detailed above. Workstation ID: [id number] EXAMINATION: CT CHEST ABDOMEN PELVIS WITHOUT CONTRAST [...] degenerative changes. Pelvis: No acute osseous abnormality. [facility] Indra Serna MD - 03/29/2023 EXAMINATION: CT [...] findings as detailed above. Workstation ID: [id number] [facility] Radiology Study observation (narrative) [facility] CT Chest Abdomen Pelvis With out ContrastOrdered By: Indra Serna on 03-29-2023 [facility] Work Phone: EKGon 03-29-2023 [facility] Glucose (Bld) [Mass/Vol]on 1 05-29-2022 Glucose [Mass/Vol] 260 mg/dL High 65 - 99 mg/dL [facility] Interpretation and review of laboratory results Abnormal [facility] Glucose [Mass/Vol] 88 mg/dL 65 - 99 mg/dL [facility] Interpretation and review of laboratory results Normal [facility] HbA1c (Bld) [Mass fraction]o n 03-29-2023 Average glucose Estimated from glycated hemoglobin (Bld) [Mass/Vol] 235 mg/dL High 74 - 114 mg/dL [facility] Interpretation and review of laboratory results Abnormal [facility] Hemoglobin A1con 03-29-2023 HbA1c (Bld) [Mass fraction] 9.8 % High 4.2 - 5.6 % [facility] Hepatic function 2000 panelo n 03-29-2023 Albumin [Mass/Vol] 3.8 g/dL 3.2 - 5.2 g/dL [facility] ALP [Catalytic activity/Vol] 108 U/L 40 - 150 U/L [facility] ALT [Catalytic activity/Vol] 7 U/L 0-35 U/L [facility] AST [Catalytic activity/Vol] 8 U/L 0-35 U/L [facility] Bilirubin [Mass/Vol] 0.3 mg/dL 0.0 - 1 .3 mg/dL [facility] Bilirubin.conjugated [Mass/Vol] mg/dL 0.0 - 0.4 mg/dL [facility] Protein [Mass/Vol] 6.8 g/dL 6.0 - 8.0 g/dL [facility] Lipaseon 03-29-2023 Lipase [Catalytic activity/Vol] 37 U/L 15 - 65 U/L [facility] No Panel Informationon 03-29 Extra Tube Hold for add-ons. [facility] Comment on above: Auto resulted. [facility] Interpretation and review of laboratory results Normal [facility] TSH DL <= 0.005 mIU/L Qnon 1 05-29-2022 Interpretation and review of laboratory results Normal [facility] TSH Qn 2.94 m[IU]/L [facility] TroponinOrdered By: Shy crawford on 03-29-2023 Delta Difference Troponin T -1 ng/L < = -/+ 7 change [facility] Interp Troponin T Delta Change Probable non-acute cardiac injury or late presentation of acute injury. [facility] Troponin T 14 ng/L NINF - 14 ng/L [facility] TroponinOrdered By: Charisse chapa on 03-29-2023 Interpretation and review of laboratory results Abnormal [facility] Troponin T 15 ng/L Critically high NINF - 14 ng/L [facility] Troponin T Interpretation Possible acute cardiac injury. [facility] XR Chest 1 Viewon 03-29-2023 Low lung volumes and small effusion suspected. MA/hb Workstation ID: [id number] EXAMINATION: XR CHEST PA/AP 03/29/2023 10:34 am [...] present. There is a transvenous defibrillator present. [facility] Laura Hodge MD - 03/29/2023 EXAMINATION: XR [...] small effusion suspected. MA/hb Workstation ID: [id number] [facility] Radiology Study observation (narrative) [facility] XR Chest 1 ViewOrdered By: Joel Hodge on 03-29-2023 [facility] Work Phone: Basic metabolic 2000 panelon 02-20-2023 Anion gap [Moles/Vol] 14 mmol/L 10 - 2 0 mmol/L [facility] Calcium [Mass/Vol] 7.8 mg/dL Low 8.4 - 10. 2 mg/dL [facility] Chloride [Moles/Vol] 110 mmol/L High 98 - 10 8 mmol/L [facility] Creatinine [Mass/Vol] 1.19 mg/dL High 0.40 - 1.10 mg/dL [facility] GFR/1.73 sq M.predicted CKD-EPI (S/P/Bld) [Vol rate/Area] 58 Low - PINF [facility] Comment on above: Estimated GFR was ca lculated using the 2020 CKD-EPI creatinine equation. Glucose [Mass/Vol] 227 mg/dL High 65 - 99 mg/dL [facility] HCO3 [Moles/Vol] 20 mmol/L Low 21 - 32 mmol/L [facility] Interpretation and review of laboratory results Abnormal [facility] Potassium [Moles/Vol] 4.6 mmol/L 3.5 - 5.1 mmol/L [facility] Sodium [Moles/Vol] 139 mmol/L 135 - 145 mmol/L [facility] Urea nitrogen [Mass/Vol] 27 mg/dL High 8 - 25 mg/dL [facility] Urea nitrogen/Creatinine [Mass ratio] 22.7 mg/mg High 10.0 - 20.0 [facility] has implemented the eGFR calculation approach that does not have a coefficient for race that conforms to the NKF-ASN Task Force Recommendations. [facility] Glucose (Bld) [Mass/Vol]on 0 02-20-2023 Glucose [Mass/Vol] 187 mg/dL High 65 - 99 mg/dL [facility] Interpretation and review of laboratory results Abnormal [facility] Glucose [Mass/Vol] 257 mg/dL High 65 - 99 mg/dL [facility] Interpretation and review of laboratory results Abnormal [facility] Basic metabolic 1999 panelOr dered By: Jayna Hart on 02-19-2023 Anion gap [Moles/Vol] 15 mmol/L 10 - 2 0 mmol/L [facility] Calcium [Mass/Vol] 8.6 mg/dL 8.4 - 10. 2 mg/dL [facility] Chloride [Moles/Vol] 107 mmol/L 98 - 10 8 mmol/L [facility] Creatinine [Mass/Vol] 2.04 mg/dL High 0.40 - 1.10 mg/dL [facility] GFR/1.73 sq M.predicted CKD-EPI (S/P/Bld) [Vol rate/Area] 30 Low - PINF [facility] Comment on above: Estimated GFR was ca lculated using the 2020 CKD-EPI creatinine equation. Glucose [Mass/Vol] 62 mg/dL Low 65 - 99 mg/dL [facility] HCO3 [Moles/Vol] 20 mmol/L Low 21 - 32 mmol/L [facility] Interpretation and review of laboratory results Abnormal [facility] Potassium [Moles/Vol] 4.3 mmol/L 3.5 - 5.1 mmol/L [facility] Sodium [Moles/Vol] 138 mmol/L 135 - 145 mmol/L [facility] Urea nitrogen [Mass/Vol] 23 mg/dL 8 - 25 mg/dL [facility] Urea nitrogen/Creatinine [Mass ratio] 11.3 mg/mg 10.0 - 20.0 [facility] has implemented the eGFR calculation approach that does not have a coefficient for race that conforms to the NKF-ASN Task Force Recommendations. [facility] CBC panel Auto (Bld)on 02-19 Erythrocyte distribution width (RBC) [Entitic vol] 13.7 % 11.6 - 14.8 % [facility] Hematocrit (Bld) [Volume fraction] 33.9 % Low 36.0 - 46.0 % [facility] Hemoglobin (Bld) [Mass/Vol] 11.4 g/dL Low 12.0 - 16.0 g/dL [facility] Interpretation and review of laboratory results Abnormal [facility] MCH (RBC) [Entitic mass] 30.2 pg 26.0 - 34.0 pg [facility] MCHC (RBC) [Mass/Vol] 33.6 g/dL 31.0 - 37.0 g/dL [facility] MCV (RBC) [Entitic vol] 89.7 fL 80.0 - 100.0 fL [facility] Nucleated RBC (Bld) [#/Vol] 0.00 10*3/uL [facility] Nucleated RBC/100 WBC (Bld) [Ratio] 0.0 % [facility] Platelet mean volume (Bld) [Entitic vol] 9.4 fL 9.4 - 12.4 fL [facility] Platelets (Bld) [#/Vol] 304 10*3/uL [facility] RBC (Bld) [#/Vol] 3.78 10*6/uL Low [facility] WBC (Bld) [#/Vol] 8.21 10*3/uL [facility] completeOrder ed By: Yan Jones on 02-19-2023 Aortic valve area 3.28824 cm [facility] Work Phone: AV mean gradient 3.77657 mmHg [facility] Work Phone: AV peak gradient 5.24671 mmHg [facility] Work Phone: EF 49.5637 % [facility] Work Phone: [facility] Work Phone: Echocardiogram completeon Patient Info Name: ADDIE ORGAN Age: 47 years : 1975 Gender: Female Ht: 157 cm Wt: 114 kg BSA: 2.30 m2 BP: 82 / 62 mmHg Technical Quality: Fair Exam Date: 02/18/2023 6:42 PM Patient Status: Inpatient Treasury Associate: Babs Barnes RDCS Exam Type: ECHOCARDIOGRAM COMPLETE Study Info Indications - Chest pain - Evaluate LV function Attending Physician: [facility] Referring Physician: JUDY Noble; [id number] BMI: 45.91 kg/m2 Summary 1. Normal LV [...] Peak Gradient 3 mmHg PV Regurgitation Doppler NV Peak Velocity 111.88 cm/s NV Peak Gradient 5 mmHg Mitral Valve Name Value Normal MV Doppler (more content not included)... FUJI SYNAPSE Yan Palacios MD - 02/19/2023 Patient Info Name: ADDIE ORGAN Age: 47 years : 1975 Gender: Female Ht: 157 cm Wt: 114 kg BSA: 2.30 m2 BP: 82 / 62 mmHg Technical Quality: Fair Exam Date: 02/18/2023 6:42 PM Patient Status: Inpatient Treasury Associate: Babs Barnes RDCS Exam Type: ECHOCARDIOGRAM COMPLETE Study Info Indications - Chest pain - Evaluate LV function Attending Physician: [facility] Referring Physician: [id number] Mckeon; [id number] BMI: 45.91 kg/m2 Summary 1. Normal LV [...] Peak Gradient 3 mmHg PV Regurgitation Doppler NV Peak Velocity 111.88 cm/s NV Peak Gradient 5 mmHg Mitral Valve Name Value Normal MV Doppler MV Decel Anderson 375 cm/s2 MV PHT 77 ms MV Area (PHT) 2.9 cm2 4.0-5.0 MV Diastolic Function MV E Peak Velocity 0.99 m/s MV A Peak Velocity 0.91 m/s MV E/A 1.1 MV Decel Time 265 ms MV Annular TDI MV Septal e' Velocity 8.2 cm/s >=8.0 MV E/e' (Septal) 12.1 <=8.0 MV Lateral e' Velo (more content not included)... [facility] Glucose (Bld) [Mass/Vol]on 0 02-19-2023 Glucose [Mass/Vol] 332 mg/dL High 65 - 99 mg/dL [facility] Interpretation and review of laboratory results Abnormal [facility] Glucose [Mass/Vol] 267 mg/dL High 65 - 99 mg/dL [facility] Interpretation and review of laboratory results Abnormal [facility] Glucose [Mass/Vol] 162 mg/dL High 65 - 99 mg/dL [facility] Interpretation and review of laboratory results Abnormal [facility] Glucose [Mass/Vol] 63 mg/dL Low 65 - 99 mg/dL [facility] Interpretation and review of laboratory results Abnormal [facility] Glucose [Mass/Vol] 80 mg/dL 65 - 99 mg/dL [facility] Interpretation and review of laboratory results Normal [facility] Lactate [Moles/Vol]on 2022 Interpretation and review of laboratory results Normal [facility] Lactic Acid, Plasmaon 2022 Lactate [Moles/Vol] 1.7 mmol/L 0.6 - 2. 0 mmol/L [facility] Troponin x 2 (Now and Repeat in 3 hours)on 02-19-2023 Interpretation and review of laboratory results Abnormal [facility] Troponin T 33 ng/L Critically high NINF - 14 ng/L [facility] Troponin T Interpretation Possible acute cardiac injury. [facility] Basic metabolic 2000 panelon 02-18-2023 Anion gap [Moles/Vol] 15 mmol/L 10 - 2 0 mmol/L [facility] Calcium [Mass/Vol] 8.9 mg/dL 8.4 - 10. 2 mg/dL [facility] Chloride [Moles/Vol] 105 mmol/L 98 - 10 8 mmol/L [facility] Creatinine [Mass/Vol] 0.99 mg/dL 0.40 - 1.10 mg/dL [facility] GFR/1.73 sq M.predicted CKD-EPI (S/P/Bld) [Vol rate/Area] 72 - PINF [facility] Comment on above: Estimated GFR was ca lculated using the 2020 CKD-EPI creatinine equation. Glucose [Mass/Vol] 144 mg/dL High 65 - 99 mg/dL [facility] HCO3 [Moles/Vol] 23 mmol/L 21 - 32 mmol/L [facility] Interpretation and review of laboratory results Abnormal [facility] Potassium [Moles/Vol] 3.8 mmol/L 3.5 - 5.1 mmol/L [facility] Sodium [Moles/Vol] 139 mmol/L 135 - 145 mmol/L [facility] Urea nitrogen [Mass/Vol] 15 mg/dL 8 - 25 mg/dL [facility] Urea nitrogen/Creatinine [Mass ratio] 15.2 mg/mg 10.0 - 20.0 [facility] has implemented the eGFR calculation approach that does not have a coefficient for race that conforms to the NKF-ASN Task Force Recommendations. [facility] CBC Auto Differentialon 01-24 Basophils (Bld) [#/Vol] 0.05 10*3/uL [facility] Basophils/100 WBC (Bld) 0.6 % [facility] Eosinophils (Bld) [#/Vol] 0.21 10*3/uL [facility] Eosinophils/100 WBC (Bld) 2.4 % [facility] Erythrocyte distribution width (RBC) [Entitic vol] 13.0 % 11.6 - 14.8 % [facility] Hematocrit (Bld) [Volume fraction] 36.9 % 36.0 - 46.0 % [facility] Hemoglobin (Bld) [Mass/Vol] 12.3 g/dL 12.0 - 16.0 g/dL [facility] Immature granulocytes (Bld) [#/Vol] 0.04 10*3/uL [facility] Immature granulocytes/100 WBC (Bld) 0.50 % [facility] Comment on above: The IG parameter is the percentage of metamyelocytes, myelocytes and promyelocytes. An immature granulocyte count (IG) of 1% or more suggests the possibility of infection, an IG count of 3% is very likely related to an infection. Lymphocytes (Bld) [#/Vol] 2.80 10*3/uL [facility] Lymphocytes/100 WBC (Bld) 32.6 % [facility] MCH (RBC) [Entitic mass] 29.4 pg 26.0 - 34.0 pg [facility] MCHC (RBC) [Mass/Vol] 33.3 g/dL 31.0 - 37.0 g/dL [facility] MCV (RBC) [Entitic vol] 88.1 fL 80.0 - 100.0 fL [facility] Monocytes (Bld) [#/Vol] 0.45 10*3/uL [facility] Monocytes/100 WBC (Bld) 5.2 % [facility] Neutrophils (Bld) [#/Vol] 5.03 10*3/uL [facility] Neutrophils/100 WBC (Bld) 58.7 % [facility] Nucleated RBC (Bld) [#/Vol] 0.00 10*3/uL [facility] Nucleated RBC/100 WBC (Bld) [Ratio] 0.0 % [facility] Platelet mean volume (Bld) [Entitic vol] 9.5 fL 9.4 - 12.4 fL [facility] Platelets (Bld) [#/Vol] 312 10*3/uL [facility] RBC (Bld) [#/Vol] 4.19 10*6/uL [facility] WBC (Bld) [#/Vol] 8.58 10*3/uL [facility] EKGon 02-18-2023 [facility] Echocardiogram completeon Radiology Study observation (narrative) [facility] Glucose (Bld) [Mass/Vol]on 0 02-18-2023 Glucose [Mass/Vol] 204 mg/dL High 65 - 99 mg/dL [facility] Interpretation and review of laboratory results Abnormal [facility] Glucose [Mass/Vol] 401 mg/dL Critically high 65 - 9 9 mg/dL [facility] Interpretation and review of laboratory results Abnormal [facility] Critical result acte d upon time of test. Test performed at bedside. [facility] Glucose [Mass/Vol] 336 mg/dL High 65 - 99 mg/dL [facility] Interpretation and review of laboratory results Abnormal [facility] Glucose [Mass/Vol] 118 mg/dL High 65 - 99 mg/dL [facility] Interpretation and review of laboratory results Abnormal [facility] Glucose [Mass/Vol] 183 mg/dL High 65 - 99 mg/dL [facility] Interpretation and review of laboratory results Abnormal [facility] NM Myocardial Perfusion Mult iple SPECTOrdered By: Inessa Rao on 02-18-2023 LV Stress Diastolic Volume 51 ml [facility] Work Phone: LV Stress Systolic Volume 7 ml [facility] Work Phone: Stress Nuc Stress EF 86 % [facility] Work Phone: [facility] Work Phone: NM Myocardial Perfusion Mult iple SPECTon 02-18-2023 Patient Info Name: ADDIE JEAN BAPTISTE Age: 47 years : 1975 Gender: Female Ht: 157 cm Wt: 114 kg BSA: 2.30 m2 Exam Date: 02/18/2023 8:50 AM Patient Status: Inpatient Acid Maker: Aravind Wright, ROGELIO, Davide Mims, RT (N), Hayden Mendieta R.T.(N), ROGELIO Exam Type: NM MYOCARDIAL PERFUSION MULTI SPECT Study Info Indications - Chest pain/anginal equiv, high CAD risk, not treadmill candidate Attending Physician: [facility] Nuclear Physician: Inessa Rao MD [id number] Primary Nurse: Sandra Sweeney RN Secondary Nurse: [...] size is normal. Radiopharmaceutical: Tc-99m Camera Used: [employer] Radiopharmaceutical: Tc-99m Camera Used: Body CentralSPECT Image Protocol Protocol: Rest/Stress 1 Day Rest [...] Date: 02/18/2023 8:50 AM Patient Status: Inpatient Acid Maker: Aravind Wright, ROGELIO, Davide Mims RT (N), Hayden Mendieta RApolinar(N), ROGELIO Exam Type: NM MYOCARDIAL PERFUSION MULTI SPECT Study Info Indications - Chest pain/anginal equiv, high CAD risk, not treadmill candidate Attending Physician: [facility] Nuclear Physician: Inessa Rao MD [id number] Primary Nurse: Sandra Sweeney RN Secondary Nurse: [...] size is normal. Radiopharmaceutical: Tc-99m Camera Used: [employer] Radiopharmaceutical: Tc-99m Camera Used: [employer] Image Protocol Protocol: Rest/Stress 1 Day Rest [...] perfusion imaging study (more content not included)... [facility] Radiology Study observation (narrative) [facility] TroponinOrdered By: Robin chauhan on 02-18-2023 Delta Difference Troponin T -1 ng/L < = -/+ 7 change [facility] Interp Troponin T Delta Change Probable non-acute cardiac injury or late presentation of acute injury. [facility] Interpretation and review of laboratory results Abnormal [facility] Troponin T 19 ng/L Critically high NINF - 14 ng/L [facility] Troponinon 02-18-2023 Interp Troponin T Delta Change Delta troponin requires at least 3 hours between collections. [facility] Interpretation and review of laboratory results Abnormal [facility] Troponin T 18 ng/L Critically high NINF - 14 ng/L [facility] Troponin x 2 (Now and Repeat in 3 hours)on 02-18-2023 Delta Difference Troponin T -2 ng/L < = -/+ 7 change [facility] Interp Troponin T Delta Change Probable non-acute cardiac injury or late presentation of acute injury. [facility] Interpretation and review of laboratory results Abnormal [facility] Troponin T 18 ng/L Critically high NINF - 14 ng/L [facility] CBC Auto Differentialon 01-24 Basophils (Bld) [#/Vol] 0.07 10*3/uL [facility] Basophils/100 WBC (Bld) 0.8 % [facility] Eosinophils (Bld) [#/Vol] 0.21 10*3/uL [facility] Eosinophils/100 WBC (Bld) 2.4 % [facility] Erythrocyte distribution width (RBC) [Entitic vol] 13.0 % 11.6 - 14.8 % [facility] Hematocrit (Bld) [Volume fraction] 37.9 % 36.0 - 46.0 % [facility] Hemoglobin (Bld) [Mass/Vol] 12.8 g/dL 12.0 - 16.0 g/dL [facility] Immature granulocytes (Bld) [#/Vol] 0.04 10*3/uL [facility] Immature granulocytes/100 WBC (Bld) 0.50 % [facility] Comment on above: The IG parameter is the percentage of metamyelocytes, myelocytes and promyelocytes. An immature granulocyte count (IG) of 1% or more suggests the possibility of infection, an IG count of 3% is very likely related to an infection. Lymphocytes (Bld) [#/Vol] 2.28 10*3/uL [facility] Lymphocytes/100 WBC (Bld) 25.9 % [facility] MCH (RBC) [Entitic mass] 29.6 pg 26.0 - 34.0 pg [facility] MCHC (RBC) [Mass/Vol] 33.8 g/dL 31.0 - 37.0 g/dL [facility] MCV (RBC) [Entitic vol] 87.5 fL 80.0 - 100.0 fL [facility] Monocytes (Bld) [#/Vol] 0.46 10*3/uL [facility] Monocytes/100 WBC (Bld) 5.2 % [facility] Neutrophils (Bld) [#/Vol] 5.76 10*3/uL [facility] Neutrophils/100 WBC (Bld) 65.2 % [facility] Nucleated RBC (Bld) [#/Vol] 0.00 10*3/uL [facility] Nucleated RBC/100 WBC (Bld) [Ratio] 0.0 % [facility] Platelet mean volume (Bld) [Entitic vol] 9.4 fL 9.4 - 12.4 fL [facility] Platelets (Bld) [#/Vol] 318 10*3/uL [facility] RBC (Bld) [#/Vol] 4.33 10*6/uL [facility] WBC (Bld) [#/Vol] 8.82 10*3/uL [facility] CT Chest Abdomen Pelvis With out Contraston 02-17-2023 1. No acute findings in the chest, abdomen, or pelvis. 2. Chronic and incidental findings as above. DEEPA/mkv Workstation ID: [id number] OmniPV EXAMINATION: CT CHEST ABDOMEN PELVIS WITHOUT CONTRAST [...] Musculoskeletal: No acute or suspicious osseous findings. Omni[employer] Bridger Webb MD - 02/17/2023 EXAMINATION: CT [...] 2. Chronic and incidental findings as above. DEEPA/abhishek Workstation ID: [id number] [facility] Radiology Study observation (narrative) [facility] CT Chest Abdomen Pelvis With out ContrastOrdered By: Bridger Webb on 02-17-2023 [facility] Work Phone: CT Head Or Brain Without Con traston 02-17-2023 1. No acute intracranial abnormality. Workstation ID: [id number] [facility] EXAMINATION: CT OF THE BRAIN. HISTORY: dizziness COMPARISON: Head CT most recently 06/11/2022 at [place] TECHNIQUE: Axial CT images were acquired from [...] Ventricles and cisternal spaces are age appropriate. [facility] Andrew Martin MD - 02/17/2023 EXAMINATION: CT OF THE BRAIN. HISTORY: dizziness COMPARISON: Head CT most recently 06/11/2022 at [place] TECHNIQUE: Axial CT images were acquired from [...] No acute intracranial abnormality. Workstation ID: [id number] [facility] Radiology Study observation (narrative) [facility] CT Head Or Brain Without Con trastOrdered By: Andrew Martin on 02-17-2023 [facility] Work Phone: Comprehensive metabolic 2000 panelon 02-17-2023 Albumin [Mass/Vol] 3.8 g/dL 3.2 - 5.2 g/dL [facility] ALP [Catalytic activity/Vol] 134 U/L 40 - 150 U/L [facility] ALT [Catalytic activity/Vol] 8 U/L 0-35 U/L [facility] Anion gap [Moles/Vol] 15 mmol/L 10 - 2 0 mmol/L [facility] AST [Catalytic activity/Vol] 9 U/L 0-35 U/L [facility] Bilirubin [Mass/Vol] 0.3 mg/dL 0.0 - 1 .3 mg/dL [facility] Calcium [Mass/Vol] 9.2 mg/dL 8.4 - 10. 2 mg/dL [facility] Chloride [Moles/Vol] 101 mmol/L 98 - 10 8 mmol/L [facility] Creatinine [Mass/Vol] 1.00 mg/dL 0.40 - 1.10 mg/dL [facility] GFR/1.73 sq M.predicted CKD-EPI (S/P/Bld) [Vol rate/Area] 71 - PINF [facility] Comment on above: Estimated GFR was ca lculated using the 2020 CKD-EPI creatinine equation. Glucose [Mass/Vol] 347 mg/dL High 65 - 99 mg/dL [facility] HCO3 [Moles/Vol] 23 mmol/L 21 - 32 mmol/L [facility] Interpretation and review of laboratory results Abnormal [facility] Potassium [Moles/Vol] 4.3 mmol/L 3.5 - 5.1 mmol/L [facility] Protein [Mass/Vol] 6.7 g/dL 6.0 - 8.0 g/dL [facility] Sodium [Moles/Vol] 135 mmol/L 135 - 145 mmol/L [facility] Urea nitrogen [Mass/Vol] 14 mg/dL 8 - 25 mg/dL [facility] Urea nitrogen/Creatinine [Mass ratio] 14.0 mg/mg 10.0 - 20.0 [facility] Laborator y Services has implemented the eGFR calculation approach that does not have a coefficient for race that conforms to the NKF-ASN Task Force Recommendations. [facility] ECG 12 Leadon 02-17-2023 Interpretation and review of laboratory results Abnormal [facility] Hayde Pickering DO 02/18/2023 12:40 AM ECG 12 Lead Date/Time: 02/17/2023 9:36 PM Performed by: Hayde Pickering DO Authorized by: Hayde Pickering DO Interpreted by ED attending physician Comparison: compared with previous ECG Rhythm: sinus rhythm BPM: 96 Other findings: LELA Clinical impression: abnormal ECG MUSE [facility] Lipaseon 02-17-2023 Lipase [Catalytic activity/Vol] 35 U/L 15 - 65 U/L [facility] Lipase [Catalytic activity/V ol]on 02-17-2023 Interpretation and review of laboratory results Normal [facility] No Panel Informationon 02-17 Extra Tube Hold for add-ons. [facility] Comment on above: Auto resulted. [facility] Troponin x 2 (Now and Repeat in 3 hours)Ordered By: Zainab Echeverria on 02-17-2023 Interpretation and review of laboratory results Abnormal [facility] Troponin T 20 ng/L Critically high NINF - 14 ng/L [facility] Troponin T Interpretation Possible acute cardiac injury. [facility] UrinalysisOrdered By: Jessie Bae on 02-17-2023 Bacteria Auto Ql (U) None Seen None Se en /hpf [facility] Bilirubin Ql (U) Negative Negative [facility] th Clarity Refractometry automated (U) Hazy Abnormal Clear [facility] Color (U) Yellow Colorless, Yellow [facility] Epithelial cells.squamous Auto (Urine sed) [#/Area] 3 [facility] Glucose Auto test strip (U) [Mass/Vol] >=500 Abnormal Negative mg/dL [facility] Hemoglobin Auto test strip Ql (U) Small Abnormal Negative [facility] Hyaline casts Auto (Urine sed) [#/Area] 3-5 Abnormal [facility] Interpretation and review of laboratory results Abnormal [facility] Ketones (U) [Mass/Vol] Negative Negative mg/dL [facility] Leukocyte clumps Auto (Urine sed) [#/Area] Rare Abnormal None Seen /hpf [facility] Leukocyte esterase Auto test strip Ql (U) Negative Negative [facility] Mucus Auto (Urine sed) [#/Area] Rare None Seen, Rare /lpf [facility] Nitrite Auto test strip Ql (U) Negative Negative [facility] pH (U) 5.0 [pH] 5.0 - 7.0 [facility] Protein (U) [Mass/Vol] 100 mg/dL Abnormal Negative [facility] RBC Auto (Urine sed) [#/Area] 2 [facility] Specific gravity (U) [Rel density] 1.025 1.005 - 1.025 [facility] Urobilinogen (U) [Mass/Vol] mg/dL NINF - 2.0 mg/dL [facility] WBC Auto (Urine sed) [#/Area] 11 High [facility] Microscopic examinat ion is performed on all urinalysis samples and only positive findings are reported. The test for blood on the chemical analytic portion of urinalysis may also be positive due to hemoglobinuria and myoglobinuria and if red blood cells are present they are quantified by microscopic examination. [facility] XR Chest 1 Viewon 02-17-2023 Low lung volumes with bronchovascular crowding. No airspace consolidation. Workstation ID: [id number] EXAMINATION: XR CHEST PA/AP HISTORY: ORDERING SYSTEM [...] superior vena cava. Left-sided pacemaker device noted. [facility] Elvis Mae M D - 02/17/2023 EXAMINATION: [...] crowding. No airspace consolidation. Workstation ID: [id number] [facility] Radiology Study observation (narrative) [facility] XR Chest 1 ViewOrdered By: Bud Mae on 02-17-2023 [facility] Work Phone: Insurance Correspondence Off iceon 02-16-2023 Insurance Correspondence Office [id number]#1.00CD:12 7 Normal [facility] Coding Queryon 11-13-2022 Coding Query - From: Elisabet Ocampo RN [facility]; Cc: Leann Vasquez; Sent: 11/05/2022 14:53:56 EDT [...] Caller Number: H Refer to dc addendum [facility] Coding Query - From: Elisabet Ocampo RN To: [facility]; Cc: Leann Vasquez; Sent: 11/05/2022 14:50:07 EDT [...] removal of hardware by Dr. Amaro in [facility] however she was declined transfer to [place] when ED attempted to do so and [...] or expected. Thank you! Elisabet [phone] [facility] To: Damaris ELDER, Elisabet; Sent: 11/13/2022 12:30:57 EDT Subject: RE: Coding Query Caller Name: ADDIE JEAN BAPTISTE; Caller Number: H refer to addendum Normal [facility] Insurance Correspondence Off ice11-04-2022 Insurance Correspondence Office [id number]#1.00CD:12 7 Normal [facility] Discharge Instructionson Discharge Instructions [id number]#1.00CD:1 27 Normal [facility] Transfer Documentson 023 Transfer Documents [id number]#1.00CD:1 27 Normal [facility] Capillary Glucose POCon 10-23 Glucose [Mass/Vol] 233 mg/dL High 55-99 [facility] Comment on above: Result Comment: Peter yeh RN/ Performed By: #### 2 [id number] #### [facility] [address] [place] [address] Glucose [Mass/Vol] 162 mg/dL High 55-99 [facility] Comment on above: Result Comment: Peter SERNA Performed By: #### 2 [id number], [id number], [id number], [id number] #### [facility] [address] [place] [address] Inpatient Clinical Summaryon 11-02-2022 Inpatient Clinical Summary [address] [address] Clinical Summary Person Information: Name: ADDIE JEAN BAPTISTE Age: 47 Years : 1975 Sex: Female PCP: LAURENT FRANCO CNP Marital Status: Phone: [phone] Race: White Ethnicity: Non- or Language: Sierra Leonean Visit Id: Visit Reason: Foot pain-swelling; Skin problem; Post surgical problem; SOLO, CELLULITIS OF FOOT, SEPSIS Speciality: Acuity: Enc Type: Inpatient Med Service: Medical Arrival: 10/28/2022 17:37:45 Discharge: Dispo Type: Admitted as IP to this Hosp Address: [facility] [id number] Provider Notes: Diagnosis: 1:Sepsis; 2:Cellulitis of foot; 3:UTI (urinary tract infection); 4:Acute kidney injury superimposed on CKD; 5:Nausea with vomiting; 6:Smoker; 7:Chronic anemia; 8:Insulin dependent type 2 diabetes mellitus; 9:Congestive heart failure; 10:HTN (hypertension); 11:Hyperlipemia; 12:Hypothyroid; 13:SEMAJ (obstructive sleep apnea); 14:Seizure disorder; 15:Schizophrenia; 16:Depression; 17:RLS (restless legs syndrome); 18:Chronic GERD; 19:Morbid obesity; 20:History of MRSA infection; 21:On deep vein thrombosis (DVT) prophylaxis; terminal manager (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 Normal [facility] Inpatient Patient Summaryon 11-02-2022 Inpatient Patient Summary [address] [address] Patient Discharge Instructions PERSON INFORMATION Name: ADDIE [...] 21:On deep vein thrombosis (DVT) prophylaxis; terminal manager (current) use of insulin Condition at Discharge: [...] wound care With: Address: When: MARISEL AMARO [address] [place] [address] [address] [place] [address] [facility] () Within 1 to 2 days Comments: Call for followup appointment - update office on your recent hospital discharge and that you need an urgent follow up appts. Dr. Jarrell aware that you were here. With: Address: When: LAURENT Sanz, [place] [address] Business (1) 11/17/2022 1:15 PM In the event that this physician does not participate in your insurance network, please consult with your insurance company to find a nearby participating provider. Comment: I, MARILYN, ADDIE Montes, have received the attached patient education materials/instructions and have verbalized understanding: Patient Signature ____ Date Clinican/Nurse Signature Date HERE ARE THE MEDICATION CHANGES THAT OCCURRED DURING YOUR HOSPITAL STAY New Medications [facility] 1984, [address] [place], [place] [id number], [phone] acetaminophen-oxycodone (Percocet 5 mg-325 mg oral tablet) [...] Mouth 2 time (more content not included)... Normal [facility] Interdisciplinary Note - Say e Manageron 11-02-2022 Interdisciplinary Note - Light Fixture Servicer CRM spoke with patient. Patient was previous rounded on by Nory HENDERSON today and will discharge home today. No family in room. Patient is alert and oriented. Whiteboard updated and CRM contact # provided. Patient states she has a home H/H RN from [facility] that comes for wound care and will continue at discharge. She also states she does not have a ride. Discussed she can call her [employer] for a ride. CRM also updated JAEL Randall on need to call insurance for ride or if too long a wait can use shuttle. Patient denies other needs. Normal [facility] Comment on above: Result Comment: Elec tronically Signed By: Jonas ELDER, Michela\.br\Date and Time Signed: 11/02/22 09:39 EDT Monitor Recordon 11-02-2022 Monitor Record [id number]#1.00CD:1 27 [facility] Monitor Record [id number]#1.00CD:1 27 [facility] Monitor Record [id number]#1.00CD:1 27 [facility] Progress Note-Physicianon Progress Note-Physician Assessment/Plan Dr. Jarrell [phone] who is an associate of Dr. Amaro ([place]) who is the recreation specialist who performed this patient's foot surgery on 10/23 - would like to be updated if pt. is taken to OR -Orthopedic team at [place] denied transfer as they do not have ID 1. Sepsis (A41.9: Sepsis, unspecified organism) POA 2/2 R foot cellulitis s/p sx. removal of hardware (placed in the 90's) & UTI -> resolved, -Aggressive IVF - [...] deep vein thrombosis (DVT) prophylaxis (Z79.899: Other senior care (current) drug therapy) -Hold heparin sq 2/2 [...] cap(s), Cap, Ora (more content not included)... [facility] Comment on above: Result Comment: Elec [...] 10/30/2022 11:10 EDT FREE TEXT SOURCE: Nory BURGESS, Nory FINAL REPORTS Final Report [] Verified Date/Time: [...] Locations R1: This test was performed at: [facility], [address] [place] [address], [address] , , [facility] Comment on above: Performed By: #### 2 [id number], [id number], [id number], [id number] #### [facility] [address] [place] [address] Capillary Glucose POCon 06- 0-3 Glucose [Mass/Vol] 329 mg/dL High 55-99 [facility] Comment on above: Result Comment: Peter SERNA Performed By: #### 2 [id number] ####[facility] [address] [place] [address] Glucose [Mass/Vol] 295 mg/dL High 55-99 [facility] Comment on above: Result Comment: Peter SERNA Performed By: #### 2 933126, 7620973, 6782438, 12634071 #### [facility] [address] [place] [address] Glucose [Mass/Vol] 208 mg/dL High 55-99 [facility] Comment on above: Result Comment: Peter yeh RN/ Performed By: #### 2 [id number] ####[facility] [address] [place] [address] Glucose [Mass/Vol] 156 mg/dL High 55-99 [facility] Comment on above: Result Comment: Peter yeh RN/ Performed By: #### 2 946368, 1550674, 5799175, [id number] #### [facility] [address] [place] [address] Lyteson 11-01-2022 Anion gap [Moles/Vol] 12 mmol/L Normal 6-16 [facility] Comment on above: Performed By: #### 2 436400 #### [facility] [address] [place] [address] Chloride [Moles/Vol] 105 mmol/L Normal 101-111 [facility] Comment on above: Performed By: #### 2 [id number] #### [facility] [address] [place] [address] CO2 [Moles/Vol] 26 mmol/L Normal 21-31 [facility] Comment on above: Performed By: #### 2 690566 #### [facility] [address] [place] [address] Potassium [Moles/Vol] 3.7 mmol/L Normal 3.5-5.3 [facility] Comment on above: Performed By: #### 2 947817 #### [facility] [address] [place] [address] Sodium [Moles/Vol] 139 mmol/L Normal 135-145 [facility] Comment on above: Performed By: #### 2 649556 #### [facility] [address] [place] [address] Monitor Recordon 11-01-2022 Monitor Record [id number]#1.00CD:1 27 Normal [facility] Monitor Record [id number]#1.00CD:1 27 Normal [facility] Monitor Record [id number]#1.00CD:1 27 Normal [facility] Monitor Record [id number]#1.00CD:1 27 Normal [facility] BMPon 10-31-2022 Anion gap [Moles/Vol] 8 mmol/L Normal 6-16 [facility] Comment on above: Performed By: #### 2 [id number] #### [facility] [address] [place] [address] Calcium [Mass/Vol] 8.8 mg/dL Low 8.9-11.1 [facility] Comment on above: Performed By: #### 2 [id number] #### [facility] [address] [place] [address] Chloride [Moles/Vol] 108 mmol/L Normal 101-111 [facility] Comment on above: Performed By: #### 2 [id number] #### [facility] [address] [place] [address] CO2 [Moles/Vol] 26 mmol/L Normal 21-31 [facility] Comment on above: Performed By: #### 2 [id number] #### [facility] [address] [place] [address] Creatinine [Mass/Vol] 1.0 mg/dL Normal 0.5-1.3 [facility] Comment on above: Performed By: #### 2 [id number] #### [facility] [address] [place] [address] Glucose [Mass/Vol] 175 mg/dL Normal 55-199 [facility] Comment on above: Result Comment: If t his glucose result represents a fasting glucose, interpretation should refer to the following reference range: 55-99 mg/dL Performed By: #### 2 [id number] #### [facility] [address] [place] [address] Potassium [Moles/Vol] 4.1 mmol/L Normal 3.5-5.3 [facility] Comment on above: Performed By: #### 2 [id number] #### [facility] [address] [place] [address] Sodium [Moles/Vol] 138 mmol/L Normal 135-145 [facility] Comment on above: Performed By: #### 2 [id number] #### [facility] [address] [place] [address] Urea nitrogen [Mass/Vol] 24 mg/dL High 5-21 [facility] Comment on above: Performed By: #### 2 [id number] #### [facility] [address] [place] [address] Urea nitrogen/Creatinine [Mass ratio] 24 No Units High 10-20 [facility] Comment on above: Performed By: #### 2 [id number] #### [facility] [address] [place] [address] CT Lower Extremity w/o Contr ast Righton [...] MD Transcribed by: JAS Technologist: ORB Normal [facility] Capillary Glucose POCon Glucose [Mass/Vol] 225 mg/dL High 55-99 [facility] Comment on above: Result Comment: Peter SERNA Performed By: #### 2 [id number] #### [facility] [address] [place] [address] Glucose [Mass/Vol] 195 mg/dL High 55-99 [facility] Comment on above: Result Comment: Peter SERNA Performed By: #### 2 [id number] #### [facility] [address] [place] [address] Glucose [Mass/Vol] 258 mg/dL High 55-99 [facility] Comment on above: Result Comment: Peter SERNA Performed By: #### 2 798339, 6476127, 4018589, 04152443 #### [facility] [address] [place] [address] Glucose [Mass/Vol] 197 mg/dL High 55-99 [facility] Comment on above: Result Comment: Peter SERNA Performed By: #### 2 [id number] ####[facility] [address] [place] [address] Consultation Noteon 11-01-19 Consultation Note Patient: BRIDGET JEAN BAPTISTE Age: 47 years Sex: Female : 1975 Associated Diagnoses: None Author: Lawrence Kim M.D History of Present Illness Patient is known to me from a previous evaluation of her left hallux in which she had superficial cultures taken from some denuded skin that had grown MRSA. She was seen at [facility] and discharged on some oral antibiotics. Apparently she had bunion surgery on the right hallux/foot years ago and recently had the hardware removed at [place]. She developed a postoperative cellulitis she therefore came to [facility] and is currently on IV antibiotics. She [...] 12 seizures a year / SNOMED CT 9602293895 / Confirmed last 2 weeks just staring spells has been 6 Abdominal pain / SNOMED CT 88966958 / Confirmed Ankle instability / SNOMED CT 8849897 / Confirmed Arthritis / SNOMED CT 3705589 / Confirmed Bipolar disorder / SNOMED CT 77847187 / Confirmed BMI 45.0-49.9, adult / SNOMED CT 0953818911 / Confirmed Pacemaker / SNOMED CT 8092766453 / Confirmed Cellulitis / SNOMED CT 613675654 / Confirmed Chronic back pain / SNOMED CT 933326661 / Confirmed Depression / SNOMED CT 901863605 / Confirmed Diabetes / SNOMED CT 915373445 / Confirmed Diabetic neuropathy / SNOMED CT 381583660 / Confirmed Diarrhea / SNOMED CT 284078765 / Confirmed Dizziness / SNOMED CT 6978974904 / Confirmed Current every day vaping / SNOMED CT 1621305641 / Confirmed Fibromyalgia / SNOMED CT 458995143 / Confirmed Gastric ulcer / SNOMED CT 4733456067 / Confirmed Chronic GERD / SNOMED CT 172902029 / Confirmed Headache / SNOMED CT 48763104 / Confirmed Hyperlipemia / SNOMED CT 08680581 / Confirmed Hypertensive heart failure / SNOMED CT 86564821 / Confirmed Hypothyroid / SNOMED CT 36119688 / Confirmed Groin pain / SNOMED CT 703498470 / Confirmed Left ankle instability / SNOMED CT 8869357828 / Confirmed Insulin pump status / SNOMED CT 1557691223 / Confirmed Lactose intolerance / SNOMED CT 2730883869 / Confirmed Kidney stones / SNOMED CT 580536310 / Confirmed Morbid obesity / SNOMED CT 444911996 / Confirmed SEMAJ (obstructive sleep apnea) / SNOMED CT 875096899 / Confirmed Pain of joint of knee / SNOMED CT 1450707730 / Confirmed Palpitations / SNOMED CT 512077133 / Confirmed Preop examination / SNOMED CT 846974962 / Confirmed Plantar fasciitis of left foot / SNOMED CT 410775336 / Confirmed Plantar fasciitis, left / SNOMED CT 331219492 / Confirmed Poly (more content not included)... Normal [facility] Comment on above: Result Comment: Elec tronically Signed By: Lawrence Kim M.D\Date and Time Signed: 10/31/22 09:20 EDT Hct & Hgbon 10-31-2022 Hematocrit (Bld) [Volume fraction] 27.2 % Low 34.0-46.0 [facility] Comment on above: Performed By: #### 2 [id number] #### [facility] [address] [place] [address] Hemoglobin (Bld) [Mass/Vol] 9.4 g/dL Low 12.0-16.0 [facility] Comment on above: Performed By: #### 2 [id number] #### [facility] [address] [place] [address] Interdisciplinary Note - Say e Manageron 10-31-2022 Interdisciplinary Note - Light Fixture Servicer Pt is awake and alert in bed, [...] Contact information provided and white board updated. [facility] Comment on above: Result Comment: Elec [...] daily attempts. No OT eval completed. Normal [facility] Monitor Recordon 10-31-2022 Monitor Record [id number]#1.00CD:1 27 [facility] Monitor Record [id number]#1.00CD:1 27 [facility] Outside Recordson 10-31-2022 Outside Records [id number]#1.00CD:12 7 [facility] Progress Note-Physicianon Progress Note-Physician Assessment/Plan Dr. Jarrell [phone] who is an associate of Dr. Amaro ([place]) who is the recreation specialist who performed this patient's foot surgery on 10/23 - would like to be updated if pt. is taken to [place] -Orthopedic team at [place] denied transfer as they do not have [...] deep vein thrombosis (DVT) prophylaxis (Z79.899: Other senior care (current) drug therapy) -Hold heparin sq 2/2 [...] made to ensure accuracy, however, inadvertently computerized spinning lathe operator hydraulic mistakes may be present. Subjective No acute events overnight. Patient voices no complaints this a.m. Pt. denies CP, pressure, palpitations, N/V, SOB or paresthesia. Review of Systems Constitutional: Negative Eye: Negative. Ear/Nose/Mouth/Throat: Negative. Respiratory: Negative Cardiovascular: Negative. Gastrointestinal: Denies abd pain. Passing flatus. Last bowel movement: unknown - no BM documented since TOA, pt. states 10/29 (more content not included)... [facility] Comment on above: Result Comment: Elec [...] Patient denies any questions, emotional support provided. [facility] Comment on above: Result Comment: Elec tronically Signed By: Nory BURGESS\.br\Date and Time Signed: 10/30/22 13:26 EDT\.br\Electronically Co-Signed By: Juliette PIZANO MD\.br\Date and Time Co-Signed: 10/31/22 08:19 EDT Progress Note-Physician Assessment/Plan Dr. Jarrell [phone] who is an associate of Dr. Amaro ([place]) who is the recreation specialist who performed this patient's foot surgery on 10/23 - would like to be updated if pt. is taken to OR -Orthopedic team at [place] denied transfer as they do not have ID -Order for nursing to review med rec placed 1. Sepsis (A41.9: Sepsis, unspecified organism) POA 2/2 R foot cellulitis s/p sx. removal of hardware (placed in the 90's) & UTI -> resolved, -Aggressive IVF, IV Atb -Monitor closely for fl. overload -Bl. cx. - prelim - neg -See below Ordered: [facility] Care/Day Moderate 35 Minutes 22474 2. Cellulitis of foot (L03.119: Cellulitis of [...] deep vein thrombosis (DVT) prophylaxis (Z79.899: Other medical terminologist (current) drug therapy) -Hold heparin sq 2/2 [...] Routine, Star (more content not included)... Normal [facility] Comment on above: Result Comment: Elec tronically Signed By: Nory BURGESS\.br\Date and Time Signed: 10/31/22 08:04 EDT\.br\Electronically Co-Signed By: Juliette PIZANO MD\.br\Date and Time Co-Signed: 10/31/22 08:18 EDT eGFRon 10-31-2022 GFR/1.73 sq M.predicted among non-blacks MDRD (S/P/Bld) [Vol rate/Area] 71 mL/min/1.73 m2 Normal >=59 [facility] Comment on above: Order Comment: Order added by Discern Expert. Result Comment: Dictaphone Mechanic odell kidney disease could be indicated at eGFR's of less than 60 mL/min/1.73m2. Kidney failure is indicated at less than 15 mL/min/1.73m2. Performed By: #### 2 [id number] #### [facility] [address] [place] [address] Auto Diffon 10-30-2022 Basophils/100 WBC (Bld) 0.7 % Normal 0.0-2.0 [facility] Comment on above: Order Comment: Order Added by Discern Expert. Performed By: #### 2 673582, 6021037, 9432525, [id number] #### [facility] [address] [place] [address] Basophils/Leukocytes Auto (Bld) [Pure # fraction] 0.1 E9/L Normal 0.0-0.2 [facility] Comment on above: Order Comment: Order Added by Discern Expert. Performed By: #### 2 799892, 2952941, 9309308, [id number] #### [facility] [address] [place] [address] Eosinophils/100 WBC (Bld) 2.3 % Normal 0.0-8.0 [facility] Comment on above: Order Comment: Order Added by Discern Expert. Performed By: #### 2 075023, 5462577, 8146372, 11219646 #### [facility] [address] [place] [address] Eosinophils/Leukocyte s Auto (Bld) [Pure # fraction] 0.2 E9/L Normal 0.0-0.5 [facility] Comment on above: Order Comment: Order Added by Discern Expert. Performed By: #### 2 626832, 8811535, 0034685, [id number] #### [facility] [address] [place] [address] 19994 Lymphocytes/100 WBC (Bld) 25.8 % Normal 14.0-50.0 [facility] Comment on above: Order Comment: Order Added by Discern Expert. Performed By: #### 2 166228, 9494153, 0183079, 77577507 #### [facility] [address] [place] [address] Lymphocytes/Leukocyte s Auto (Bld) [Pure # fraction] 2.2 E9/L Normal 1.0-4.0 [facility] Comment on above: Order Comment: Order Added by Discern Expert. Performed By: #### 2 105566, 6648675, 1798242, 74836146 #### [facility] [address] [place] [address] 33[address] Monocytes/100 WBC (Bld) 5.3 % Normal 4.0-14.0 [facility] Comment on above: Order Comment: Order Added by Discern Expert. Performed By: #### 2 660871, 0897547, 7984758, 82609796 #### [facility] [address] [place] [address] Monocytes/Leukocytes Auto (Bld) [Pure # fraction] 0.5 E9/L Normal 0.2-1.0 [facility] Comment on above: Order Comment: Order Added by Discern Expert. Performed By: #### 2 493286, 1464840, 9354104, 74671776 #### [facility] [address] [place] [address] Neutrophils/100 WBC (Bld) 65.9 % Normal 36.0-75.0 [facility] Comment on above: Order Comment: Order Added by Discern Expert. Performed By: #### 2 456421, 2760721, 6171899, 49986329 #### [facility] [address] [place] [address] Neutrophils/Leukocyte s Auto (Bld) [Pure # fraction] 5.7 E9/L Normal 2.0-7.5 [facility] Comment on above: Order Comment: Order Added by Discern Expert. Performed By: #### 2 939705, 0153910, 1315364, 08097137 #### [facility] [address] [place] [address] BMPon 10-30-2022 Anion gap [Moles/Vol] 7 mmol/L Normal 6-16 [facility] Comment on above: Performed By: #### 2 114605, 7671696, 9157267, 59785790 #### [facility] [address] [place] [address] Calcium [Mass/Vol] 8.4 mg/dL Low 8.9-11.1 [facility] Comment on above: Performed By: #### 2 400937, 4571882, 3466680, 75166679 #### [facility] [address] [place] [address] Chloride [Moles/Vol] 109 mmol/L Normal 101-111 [facility] Comment on above: Performed By: #### 2 262975, 9874100, 7124634, 95734782 #### [facility] [address] [place] [address] CO2 [Moles/Vol] 25 mmol/L Normal 21-31 [facility] Comment on above: Performed By: #### 2 561693, 6859794, 6805767, 74963580 #### [facility] [address] [place] [address] Creatinine [Mass/Vol] 1.2 mg/dL Normal 0.5-1.3 [facility] Comment on above: Performed By: #### 2 053447, 7591542, 3061292, 59016337 #### [facility] [address] [place] [address] Glucose [Mass/Vol] 236 mg/dL High 55-199 [facility] Comment on above: Result Comment: If t his glucose result represents a fasting glucose, interpretation should refer to the following reference range: 55-99 mg/dL Performed By: #### 2 956950, 0913780, 0841028, 19783674 #### [facility] [address] [place] [address] Potassium [Moles/Vol] 4.6 mmol/L Normal 3.5-5.3 [facility] Comment on above: Performed By: #### 2 598185, 8325303, 4262286, 59346786 #### [facility] [address] [place] [address] Sodium [Moles/Vol] 136 mmol/L Normal 135-145 [facility] Comment on above: Performed By: #### 2 905481, 0634925, 1821027, 68439249 #### [facility] [address] [place] [address] Urea nitrogen [Mass/Vol] 32 mg/dL High 5-21 [facility] Comment on above: Performed By: #### 2 803637, 3738002, 1279483, 52485939 #### [facility] [address] [place] [address] Urea nitrogen/Creatinine [Mass ratio] 27 No Units High 10-20 [facility] Comment on above: Performed By: #### 2 527116, 1108185, 2112433, 15403681 #### [facility] [address] [place] [address] CBC w/ Auto Diffon 3 Erythrocyte distribution width (RBC) [Ratio] 12.7 % Normal 10.9-14.2 [facility] Comment on above: Performed By: #### 2 557349, 7493131, 6885993, 96134363 #### [facility] [address] [place] [address] Hematocrit (Bld) [Volume fraction] 26.0 % Low 34.0-46.0 [facility] Comment on above: Performed By: #### 2 637719, 1466412, 6297525, 66747103 #### [facility] [address] [place] [address] Hemoglobin (Bld) [Mass/Vol] 8.9 g/dL Low 12.0-16.0 [facility] Comment on above: Performed By: #### 2 467371, 5608394, 5484254, 19439660 #### [facility] [address] [place] [address] MCH (RBC) [Entitic mass] 30.3 pg Normal 27.0-34.0 [facility] Comment on above: Performed By: #### 2 864126, 9111365, 9882258, 88077456 #### [facility] [address] [place] [address] MCHC (RBC) [Mass/Vol] 34.1 g/dL Normal 31.4-36.0 [facility] Comment on above: Performed By: #### 2 306243, 5364161, 5661327, 75496998 #### [facility] [address] [place] [address] MCV (RBC) [Entitic vol] 88.9 fL Normal 80.0-100.0 [facility] Comment on above: Performed By: #### 2 343295, 5999149, 5525576, 57759724 #### [facility] [address] [place] [address] Platelet mean volume (Bld) [Entitic vol] 7.8 fL Normal 6.4-10.8 [facility] Comment on above: Performed By: #### 2 623505, 7009882, 6153940, 15913348 #### [facility] [address] [place] [address] Platelets (Bld) [#/Vol] 420.0 E9/L Normal 150.0-500.0 [facility] Comment on above: Performed By: #### 2 330408, 7649803, 8212570, 01197681 #### [facility] [address] [place] [address] RBC (Bld) [#/Vol] 2.9 E12/L Low 4.3-5.9 [facility] Comment on above: Performed By: #### 2 224266, 5447066, 5583483, 85085212 #### [facility] [address] [place] [address] WBC corrected for nucl RBC Auto (Bld) [#/Vol] 8.6 E9/L Normal 4.0-11.0 [facility] Comment on above: Performed By: #### 2 485533, 2472220, 8073333, 09216923 #### [facility] [address] [place] [address] Capillary Glucose POCon 060 Glucose [Mass/Vol] 211 mg/dL High 55-99 [facility] Comment on above: Result Comment: Peter yeh RN/ Performed By: #### 2 011200, 7341744, 3073885, 88068791 #### [facility] [address] [place] [address] Glucose [Mass/Vol] 212 mg/dL High 55-99 [facility] Comment on above: Result Comment: Peter yeh RN/ Performed By: #### 2 074130, 1228851, 6705927, 80579736 #### [facility] [address] [place] [address] Glucose [Mass/Vol] 260 mg/dL High 55-99 [facility] Comment on above: Result Comment: Peter yeh RN/ Performed By: #### 2 86735489 ####[facility] [address] [place] [address] Glucose [Mass/Vol] 247 mg/dL High 55-[address] [place] [address] Comment on above: Result Comment: Peter SERNA Performed By: #### 2 35018735 ####[facility] [address] [place] [address] Glucose [Mass/Vol] 242 mg/dL High 55-[address] [place] [address] Comment on above: Performed By: #### 2 191228, 4854201, 2780921, 94259418 #### [facility] [address] [place] [address] Discharge Note-Nursingon Discharge Note-Nursing per BEATRIZ Cueto request, I responded to patients room to discuss her abdominal xray and treatment that FINANCIAL RECORDING CLERK wanted to provide. I informed her that her xray showed she was full of stool and it is likely what is causing her nausea and vomiting. FINANCIAL RECORDING CLERK wants her to take Miralax (refused earlier today) or a suppository to help relive the constipation. Patient refused both treatment options at this time. Will continued to monitor. Normal [facility] Ferritinon 10-30-2022 Ferritin [Mass/Vol] 36 ng/mL Normal 11-307 [facility] Comment on above: Result Comment: NORM ALS MEN <30 YRS 16-132 ng/mL MEN >30 YRS 8-338 ng/mL WOMEN (PREMEN) 6-104 ng/mL WOMEN (POSTMEN) 12-210 ng/mL Performed By: #### 2 402591, 4985621, 8350179, 61656248 #### [facility] [address] [place] [address] Folateon 10-30-2022 Folate [Mass/Vol] 15.0 ng/mL Normal >=6.7 [facility] Comment on above: Performed By: #### 2 767796, 4594714, 1031635, 98767391 #### [facility] [address] [place] [address] Interdisciplinary Note - Say e Manageron 10-30-2022 Interdisciplinary Note - Light Fixture Servicer Pt is awake in bed, states does not want to be bothered at this time, no family present. Await Podiatry to see and pending therapy andreasals, Nupur following for needs. Normal [facility] Comment on above: Result Comment: Elec tronically Signed By: Taniya ELDER, Michi\.br\Date and Time Signed: 10/30/22 09:28 EDT Interdisciplinary Note - Roberta n 10-30-2022 Interdisciplinary Note - OT 10/30: OT eval attempted, Pt refuses. Will try again tomorrow. Normal [facility] Interdisciplinary Note - PTo n 10-30-2022 Interdisciplinary Note - PT Attempted, but pt refused due to illness. Will also hold an await Podiatry consult with their recommendations prior to beginning Normal [facility] Ironon 10-30-2022 Iron [Mass/Vol] 47 microgram/dL Normal 35-153 [facility] Comment on above: Performed By: #### 2 571304, 6797451, 5091608, 70131056 #### [facility] [address] [place] [address] LDHon 10-30-2022 LDH [Catalytic activity/Vol] 119 Int._Unit/L Normal 93-218 [facility] Comment on above: Performed By: #### 2 153794, 0231762, 4074046, 99593930 #### [facility] [address] [place] [address] Monitor Recordon 10-30-2022 Monitor Record [id number]#[id number]:1 27 Normal [facility] Monitor Record [id number]#[id number]:1 27 Normal [facility] Patient Education - Texton 0 10-30-2022 Patient Education - Text Normal [facility] Progress Note-Nurseon 2022 Progress Note-Nurse Patient reported she wanted to leave AMA. Nory, USABILITY SPECIALIST bedside, discussed risks and benefits of leaving A up to and including and dismemberment. Patient acknowledged same and decided to stay at this time. Normal [facility] Retic Counton 10-30-2022 Reticulocytes/100 RBC (Bld) 1.7 % High 0.5-1.5 [facility] Comment on above: Result Comment: This Reticulocyte Count Has Been Corrected For Anemia Performed By: #### 2 578000, 2593109, 2570622, 78723325 #### [facility] [address] [place] [address] TIBC Calculatedon 10-30-2022 Iron binding capacity [Mass/Vol] 258 microgram/dL Normal 250-400 [facility] Comment on above: Performed By: #### 2 708865, 6229604, 6069546, 37017203 #### [facility] [address] [place] [address] Transferrin [Mass/Vol] 184 mg/dL Low 200-370 [facility] Comment on above: Performed By: #### 2 116450, 7852689, 4282768, 89702944 #### [facility] [address] [place] [address] UA With Cult Reflexon 2022 Bacteria LM Ql (Urine sed) 3+ /HPF Abnormal Trace [facility] Comment on above: Performed By: #### 2 964471, 3254541, 4099678, 67861069 #### [facility] [address] [place] [address] Bilirubin Ql (U) Negative Normal Negative [facility] Comment on above: Performed By: #### 2 368607, 5183738, 8002891, 62872620 #### [facility] [address] [place] [address] Clarity (U) CLOUDY Abnormal Clear [facility] Comment on above: Performed By: #### 2 013565, 4272991, 1642733, 12025340 #### [facility] [address] [place] [address] Color (U) YELLOW Normal Yellow [facility] Comment on above: Performed By: #### 2 690793, 5701293, 4290656, 15301527 #### [facility] [address] [place] [address] Epithelial cells.squamous LM.HPF (Urine sed) [#/Area] 0-2 Normal 0-2 [facility] Comment on above: Performed By: #### 2 652493, 3470143, 6939606, 75311630 #### [facility] [address] [place] [address] Glucose Test strip (U) [Mass/Vol] TRACE Abnormal Negative [facility] Comment on above: Performed By: #### 2 292845, 6682190, 3244455, 00932587 #### [facility] [address] [place] [address] Hemoglobin Ql (U) TRACE Abnormal Negative [facility] Comment on above: Performed By: #### 2 591954, 0473805, 4342171, 23703463 #### [facility] [address] [place] [address] Ketones (U) [Mass/Vol] Negative Normal Negative [facility] Comment on above: Performed By: #### 2 810753, 9954018, 9725019, 64189715 #### [facility] [address] [place] [address] Ina.plasma/Lithiu m.RBC (Bld) [Mass ratio] 4-20 Normal 0-3 [facility] Comment on above: Performed By: #### 2 868498, 1135212, 7126599, 68469852 #### [facility] [address] [place] [address] Mucus Ql (Urine sed) TRACE Normal [facility] Comment on above: Performed By: #### 2 812507, 9877568, 9296819, 22503906 #### [facility] [address] [place] [address] Nitrite Ql (U) Negative Normal Negative [facility] Comment on above: Performed By: #### 2 532828, 8556089, 8715351, 13047744 #### [facility] [address] [place] [address] pH (U) 6.0 [pH] Invalid Interpretation Code 5.0-9.0 [facility] Comment on above: Performed By: #### 2 588429, 3171392, 4565498, 95341040 #### [facility] [address] [place] [address] Protein (U) [Mass/Vol] Negative Normal Negative [facility] Comment on above: Performed By: #### 2 137848, 2912884, 7351703, 31731734 #### [facility] [address] [place] [address] Specific gravity (U) [Rel density] 1.025 Invalid Interpretation Code 1.005-1.030 [facility] Comment on above: Performed By: #### 2 566972, 4980525, 2983282, 62487690 #### [facility] [address] [place] [address] Type of Urine collection method Clean Catch Normal [facility] Comment on above: Performed By: #### 2 048770, 4838036, 5533431, 90812062 #### [facility] [address] [place] [address] Urobilinogen Qn (U) 0.2 {Sheyla'U}/dL Normal 0.0-1.0 [facility] Comment on above: Performed By: #### 2 885299, 6219494, 8814125, 65500446 #### [facility] [address] [place] [address] WBC Auto Ql (U) 1+ Abnormal Negative [facility] Comment on above: Performed By: #### 2 211109, 0270381, 1720000, 65511732 #### [facility] [address] [place] [address] WBC LM.HPF (Urine sed) [#/Area] /[HPF] Abnormal 0-5 [facility] Comment on above: Performed By: #### 2 629200, 2215918, 9672132, 76687400 #### [facility] [address] [place] [address] Vit B12on 10-30-2022 Cobalamin (Vitamin B12) [Mass/Vol] 97 pg/mL Normal 50-1500 [facility] Comment on above: Performed By: #### 2 166609, 3202182, 8885868, 55485880 #### [facility] [address] [place] [address] XR Abdomen 1 Viewon 10-31-19 23 XR [...] mGy = na DAP = na Normal [facility] eGFRon 10-30-2022 GFR/1.73 sq M.predicted among non-blacks MDRD (S/P/Bld) [Vol rate/Area] 57 mL/min/1.73 m2 Low >=59 [facility] Comment on above: Order Comment: Order added by Discern Expert. Result Comment: Dictaphone Mechanic odell kidney disease could be indicated at eGFR's of less than 60 mL/min/1.73m2. Kidney failure is indicated at less than 15 mL/min/1.73m2. Performed By: #### 2 585342, 9816304, 2162452, 45334435 #### [facility] [address] [place] [address] Auto Diffon 10-29-2022 Basophils/100 WBC (Bld) 0.7 % Normal 0.0-2.0 [facility] Comment on above: Order Comment: Order Added by Abena Expert. Performed By: #### 2 978714, 2435179, 2204802, 86021297 ####[facility] [address] [place] [address] Basophils/Leukocytes Auto (Bld) [Pure # fraction] 0.1 E9/L Normal 0.0-0.2 [facility] Comment on above: Order Comment: Order Added by Discern Expert. Performed By: #### 2 550826, 8919077, 8876531, 75906462 ####[facility] [address] [place] [address] Eosinophils/100 WBC (Bld) 2.2 % Normal 0.0-8.0 [facility] Comment on above: Order Comment: Order Added by Discern Expert. Performed By: #### 2 492192, 9660024, 1732145, 31829421 ####[facility] [address] [place] [address] Eosinophils/Leukocyte s Auto (Bld) [Pure # fraction] 0.2 E9/L Normal 0.0-0.5 [facility] Comment on above: Order Comment: Order Added by Discern Expert. Performed By: #### 2 593323, 9150818, 1332348, 55392524 ####[address] [place] [address] Lymphocytes/100 WBC (Bld) 24.1 % Normal 14.0-50.0 [facility] Comment on above: Order Comment: Order Added by Discern Expert. Performed By: #### 2 320837, 5839968, 2731318, 95358021 ####[address] [address] Lymphocytes/Leukocyte s Auto (Bld) [Pure # fraction] 2.6 E9/L Normal 1.0-4.0 [facility] Comment on above: Order Comment: Order Added by Discern Expert. Performed By: #### 2 005469, 6191522, 6959195, 76231929 ####[address] [address] Monocytes/100 WBC (Bld) 6.5 % Normal 4.0-14.0 [facility] Comment on above: Order Comment: Order Added by Discern Expert. Performed By: #### 2 668018, 8658823, 3591031, 89612142 ####[address] [address] Monocytes/Leukocytes Auto (Bld) [Pure # fraction] 0.7 E9/L Normal 0.2-1.0 [facility] Comment on above: Order Comment: Order Added by Abena Expert. Performed By: #### 2 836509, 1382088, 6094107, 44599704 ####[address] [address] Neutrophils/100 WBC (Bld) 66.5 % Normal 36.0-75.0 [facility] Comment on above: Order Comment: Order Added by Discern Expert. Performed By: #### 2 881277, 6903853, 9241656, 70349055 ####[address] [place] [address] Neutrophils/Leukocyte s Auto (Bld) [Pure # fraction] 7.1 E9/L Normal 2.0-7.5 [facility] Comment on above: Order Comment: Order Added by Discern Expert. Performed By: #### 2 361777, 5251829, 0398952, 28922249 ####[facility] [address] [place] [address] BMPon 10-29-2022 Anion gap [Moles/Vol] 12 mmol/L Normal 6-16 [facility] Comment on above: Order Comment: pt thibodeaux s a line and per phleb Joyeli line packet was given to nursing staff [facility] 10/29/2022 08:38:27 EDT Performed By: #### 2 663826, 8776480, 6511045, 22741246 ####[facility] [address] [place] [address] Calcium [Mass/Vol] 8.5 mg/dL Low 8.9-11.1 [facility] Comment on above: Order Comment: pt thibodeaux s a line and per phleb Joyeli line packet was given to nursing staff [facility] 10/29/2022 08:38:27 EDT Performed By: #### 2 443499, 4564505, 0750735, 85642579 ####[facility] [address] [place] [address] Chloride [Moles/Vol] 104 mmol/L Normal 101-111 [facility] Comment on above: Order Comment: pt thibodeaux s a line and per phleb Joyeli line packet was given to nursing staff [facility] 10/29/2022 08:38:27 EDT Performed By: #### 2 410430, 1764235, 0670755, 82250290 ####[facility] [address] [place] [address] CO2 [Moles/Vol] 26 mmol/L Normal 21-31 [facility] Comment on above: Order Comment: pt thibodeaux s a line and per phleb Joyeli line packet was given to nursing staff [facility] 10/29/2022 08:38:27 EDT Performed By: #### 2 288428, 9427002, 5368492, 92502468 ####[facility] [address] [place] [address] Creatinine [Mass/Vol] 1.6 mg/dL High 0.5-1.3 [facility] Comment on above: Order Comment: pt thibodeaux s a line and per phleb Joyeli line packet was given to nursing staff [facility] 10/29/2022 08:38:27 EDT Performed By: #### 2 339860, 9502068, 3259150, 90688082 ####[facility] [address] [place] [address] Glucose [Mass/Vol] 219 mg/dL High 55-199 [facility] Comment on above: Order Comment: pt thibodeaux s a line and per phleb Joyeli line packet was given to nursing staff [facility] 10/29/2022 08:38:27 EDT Result Comment: If t his glucose result represents a fasting glucose, interpretation should refer to the following reference range: 55-99 mg/dL Performed By: #### 2 884796, 6005330, 0430066, 86387067 ####[facility] [address] [place] [address] Potassium [Moles/Vol] 4.6 mmol/L Normal 3.5-5.3 [facility] Comment on above: Order Comment: pt thibodeaux s a line and per phleb Joyeli line packet was given to nursing staff [facility] 10/29/2022 08:38:27 EDT Performed By: #### 2 798568, 0516966, 7292429, 80471478 ####[facility] [address] [place] [address] Sodium [Moles/Vol] 137 mmol/L Normal 135-145 [facility] Comment on above: Order Comment: pt thibodeaux s a line and per phleb Joyeli line packet was given to nursing staff [facility] 10/29/2022 08:38:27 EDT Performed By: #### 2 579171, 5592812, 2289773, 78421583 ####[facility] [address] [place] [address] Urea nitrogen [Mass/Vol] 41 mg/dL High 5-21 [facility] Comment on above: Order Comment: pt thibodeaux s a line and per phleb Joyeli line packet was given to nursing staff [email or web address] 10/29/2022 08:38:27 EDT Performed By: #### 2 384681, 3883469, 5375990, 06158020 ####[facility] [address] [place] [address] Urea nitrogen/Creatinine [Mass ratio] 26 No Units High 10-20 [facility] Comment on above: Order Comment: pt thibodeaux s a line and per phleb Joyeli line packet was given to nursing staff [id number] 10/29/2022 08:38:27 EDT Performed By: #### 2 437998, 0257244, 5358746, 90332425 ####[facility] [address] [place] [address] CBC w/ Auto Diffon Erythrocyte distribution width (RBC) [Ratio] 12.7 % Normal 10.9-14.2 [facility] Comment on above: Performed By: #### 2 141194, 4988237, 2645719, 96556771 ####[facility] [address] [place] [address] Hematocrit (Bld) [Volume fraction] 31.1 % Low 34.0-46.0 [facility] Comment on above: Performed By: #### 2 991765, 7017855, 6282914, 99586990 ####[address] [address] Hemoglobin (Bld) [Mass/Vol] 10.3 g/dL Low 12.0-16.0 [facility] Comment on above: Performed By: #### 2 683374, 6790651, 3122174, 81608465 ####[facility] [address] [place] [address] MCH (RBC) [Entitic mass] 29.9 pg Normal 27.0-34.0 [facility] Comment on above: Performed By: #### 2 163957, 2086025, 6011452, 67774936 ####[address] [address] MCHC (RBC) [Mass/Vol] 33.1 g/dL Normal 31.4-36.0 [facility] Comment on above: Performed By: #### 2 402740, 3352112, 7202647, 79882518 ####[facility] [address] [place] [address] MCV (RBC) [Entitic vol] 90.2 fL Normal 80.0-100.0 [facility] Comment on above: Performed By: #### 2 582585, 5672982, 9443751, 98336238 ####[facility] [address] [place] [address] Platelet mean volume (Bld) [Entitic vol] 7.3 fL Normal 6.4-10.8 [facility] Comment on above: Performed By: #### 2 [id number], [id number], [id number], [id number] ####[address] [address] Platelets (Bld) [#/Vol] 480.0 E9/L Normal 150.0-500.0 [facility] Comment on above: Performed By: #### 2 104430, [id number], [id number], [id number] ####[address] [address] RBC (Bld) [#/Vol] 3.4 E12/L Low 4.3-5.9 [facility] Comment on above: Performed By: #### 2 757423, 7855845, [id number], [id number] ####[address] [address] WBC corrected for nucl RBC Auto (Bld) [#/Vol] 10.7 E9/L Normal 4.0-11.0 [facility] Comment on above: Performed By: #### 2 727674, [id number], [id number], [id number] ####[address] [address] Capillary Glucose POCon 06-0 Glucose [Mass/Vol] 205 mg/dL High 55-99 [facility] Comment on above: Result Comment: Peter yeh RN/ Performed By: #### 2 [id number] ####[facility] [address] [place] [address] Glucose [Mass/Vol] 267 mg/dL High 55-99 [facility] Comment on above: Result Comment: Peter yeh RN/ Performed By: #### 2 415242, [id number], [id number], [id number] #### [facility] [address] [place] [address] Glucose [Mass/Vol] 201 mg/dL High 55-99 [facility] Comment on above: Result Comment: Peter yeh RN/ Performed By: #### 2 [id number] ####[facility] [address] [place] [address] Glucose [Mass/Vol] 257 mg/dL High 55-99 [facility] Comment on above: Result Comment: Peter yeh RN/ Performed By: #### 2 776249, 0608195, [id number], [id number] #### [facility] [address] [place] [address] [employer] [address] [employer] Education Videoon [employer] Education Video Yes Patient Avoiding Infections in the Hospital [facility] Insurance Correspondence Off iceon 10-29-2022 Insurance Correspondence Office [id number]#[id number]:1 27 [facility] Interdisciplinary Note - Say e Manageron 10-29-2022 Interdisciplinary Note - Light Fixture Servicer Pt is awake and alert in bed, previously rounded with Yarely USABILITY SPECIALIST. pt is from home with daughter and she or Boyfriend will transport at [place]. Inpatient status reviewed, Pending therapy evals. Pt had ankle surgery in [place] on . Podiatry and wound and ID to see. Pt is aware of plan to stay in hospital for several days, Inpatient status reviewed. Declines any concerns or DC needs. CRM following . PCP verified and insurance information reviewed and DME discussed. Contact information provided and white board updated. Normal [facility] Comment on above: Result Comment: Elec tronically Signed By: Taniya ELDER, Michi\bryant\Date and Time Signed: 10/29/22 09:10 EDT Interdisciplinary Note - Gorge ivey 10-29-2022 Interdisciplinary Note - Nursing Wound consult completed, no open areas noted. Yarely Elizondo USABILITY SPECIALIST in room during assessment. Agreed with no open areas. R foot surgical wound noted. Sutures intact. Incision line well approximated. Noted on Left great toe and left heel, scabbing. No open areas, no drainage. Normal [facility] Interdisciplinary Note - Roberta n 10-29-2022 Interdisciplinary Note - OT 10/29: OT orders received, chart reviewed. Holding OT eval this date pending podiatry consult and WB status of R LE. Will check back tomorrow. Normal [facility] Monitor Recordon 10-29-2022 Monitor Record [id number]:1 27 Normal [facility] Monitor Record [id number]#[id number]:1 27 Normal [facility] Progress Note-Nurseon 2022 Progress Note-Nurse RN called [facility] regarding patient's evening quetiapine dose of 800 mg to clarify before giving as it is a large dose. Dannielle confirmed dose is okay to give as this is patient's home dose and it is a recent prescription. Normal [facility] Progress Note-Physicianon Progress Note-Physician Patient seen at bedside sitting up in bed this morning. Patient with significant erythema with warmness to top of right foot. Her sutures are dry and intact. Complains of pain to site. No drainage is noted. Patient denies any fevers, chills, chest pain, shortness of breath. He did receive a phone call from Dr. Jarrell [phone] who is an associate of Dr. Amaro who is the recreation specialist who performed this patient's foot surgery on [...] age, normal judgement, normal psychiatric thoughts Normal [facility] Comment on above: Result Comment: Elec tronically Signed By: Valeri HICKEY\.br\Date and Time Signed: 10/29/22 11:07 EDT\.br\Electronically Co-Signed By: Juliette PIZANO MD\.br\Date and Time Co-Signed: 10/29/22 11:51 EDT eGFRon 10-29-2022 GFR/1.73 sq M.predicted among non-blacks MDRD (S/P/Bld) [Vol rate/Area] 40 mL/min/1.73 m2 Low >=59 [facility] Comment on above: Order Comment: Order added by Discern Expert. Result Comment: Dictaphone Mechanic odell kidney disease could be indicated at eGFR's of less than 60 mL/min/1.73m2. Kidney failure is indicated at less than 15 mL/min/1.73m2. Performed By: #### 2 [id number], [id number], [id number], [id number] ####[facility] [address] [place] [address] Auto Diffon 10-28-2022 Basophils/100 WBC (Bld) 0.6 % Normal 0.0-2.0 [facility] Comment on above: Order Comment: Order Added by Discern Expert. Performed By: #### 2 [id number] #### [facility] [address] [place] [address] Basophils/Leukocytes Auto (Bld) [Pure # fraction] 0.1 E9/L Normal 0.0-0.2 [facility] Comment on above: Order Comment: Order Added by Discern Expert. Performed By: #### 2 [id number] #### [facility] [address] [place] [address] Eosinophils/100 WBC (Bld) 1.4 % Normal 0.0-8.0 [facility] Comment on above: Order Comment: Order Added by Discern Expert. Performed By: #### 2 [id number] #### [facility] [address] [place] [address] Eosinophils/Leukocyte s Auto (Bld) [Pure # fraction] 0.2 E9/L Normal 0.0-0.5 [facility] Comment on above: Order Comment: Order Added by Discern Expert. Performed By: #### 2 [id number] #### [facility] [address] [place] [address] Lymphocytes/100 WBC (Bld) 14.1 % Normal 14.0-50.0 [facility] Comment on above: Order Comment: Order Added by Discern Expert. Performed By: #### 2 [id number] #### [facility] [address] [place] [address] Lymphocytes/Leukocyte s Auto (Bld) [Pure # fraction] 1.9 E9/L Normal 1.0-4.0 [facility] Comment on above: Order Comment: Order Added by Discern Expert. Performed By: #### 2 [id number] #### [facility] [address] [place] [address] Monocytes/100 WBC (Bld) 4.1 % Normal 4.0-14.0 [facility] Comment on above: Order Comment: Order Added by Discern Expert. Performed By: #### 2 [id number] #### [facility] [address] [place] [address] Monocytes/Leukocytes Auto (Bld) [Pure # fraction] 0.6 E9/L Normal 0.2-1.0 [facility] Comment on above: Order Comment: Order Added by Discern Expert. Performed By: #### 2 [id number] #### [facility] [address] [place] [address] Neutrophils/100 WBC (Bld) 79.8 % High 36.0-75.0 [facility] Comment on above: Order Comment: Order Added by Discern Expert. Performed By: #### 2 [id number] #### [facility] [address] [place] [address] Neutrophils/Leukocyte s Auto (Bld) [Pure # fraction] 10.8 E9/L High 2.0-7.5 [facility] Comment on above: Order Comment: Order Added by Discern Expert. Performed By: #### 2 [id number] #### [facility] [address] [place] [address] CBC w/ Auto Diffon 3 Erythrocyte distribution width (RBC) [Ratio] 12.8 % Normal 10.9-14.2 [facility] Comment on above: Performed By: #### 2 [id number] #### [facility] [address] [place] [address] Hematocrit (Bld) [Volume fraction] 34.7 % Normal 34.0-46.0 [facility] Comment on above: Performed By: #### 2 [id number] #### [facility] [address] [place] [address] Hemoglobin (Bld) [Mass/Vol] 11.6 g/dL Low 12.0-16.0 [facility] Comment on above: Performed By: #### 2 [id number] #### [facility] [address] [place] [address] MCH (RBC) [Entitic mass] 29.7 pg Normal 27.0-34.0 [facility] Comment on above: Performed By: #### 2 [id number] #### [facility] [address] [place] [address] MCHC (RBC) [Mass/Vol] 33.3 g/dL Normal 31.4-36.0 [facility] Comment on above: Performed By: #### 2 [id number] #### [facility] [address] [place] [address] MCV (RBC) [Entitic vol] 89.0 fL Normal 80.0-100.0 [facility] Comment on above: Performed By: #### 2 [id number] #### [facility] [address] [place] [address] Platelet mean volume (Bld) [Entitic vol] 7.9 fL Normal 6.4-10.8 [facility] Comment on above: Performed By: #### 2 [id number] #### [facility] [address] [place] [address] Platelets (Bld) [#/Vol] 458.0 E9/L Normal 150.0-500.0 [facility] Comment on above: Result Comment: Slid e reviewed by ts Unable to obtain accurate platelet count due to platelet clumping. Platelet count estimate appears increased on slide.. Performed By: #### 2 [id number] #### [facility] [address] [place] [address] RBC (Bld) [#/Vol] 3.9 E12/L Low 4.3-5.9 [facility] Comment on above: Performed By: #### 2 [id number] #### [facility] [address] [place] [address] WBC corrected for nucl RBC Auto (Bld) [#/Vol] 13.5 E9/L High 4.0-11.0 [facility] Comment on above: Performed By: #### 2 [id number] #### [facility] [address] [place] [address] CMPon 10-28-2022 Albumin [Mass/Vol] 3.4 g/dL Normal 3.3-5.0 [facility] Comment on above: Performed By: #### 2 [id number] #### [facility] [address] [place] [address] Albumin/Globulin (S) [Mass conc ratio] 0.8 Low 1.1-2.2 [facility] Comment on above: Performed By: #### 2 [id number] #### [facility] [address] [place] [address] ALP [Catalytic activity/Vol] 130 Int._Unit/L High 21-98 [facility] Comment on above: Performed By: #### 2 [id number] #### [facility] [address] [place] [address] ALT No additional P-5'-P [Catalytic activity/Vol] 15 Int._Unit/L Normal 6-46 [facility] Comment on above: Performed By: #### 2 [id number] #### [facility] [address] [place] [address] AST [Catalytic activity/Vol] 12 Int._Unit/L Normal 5-43 [facility] Comment on above: Performed By: #### 2 [id number] #### [facility] [address] [place] [address] Bilirubin [Mass/Vol] 0.4 mg/dL Normal 0.0-1.1 [facility] Comment on above: Performed By: #### 2 [id number] #### [facility] [address] [place] [address] Creatinine [Mass/Vol] 1.7 mg/dL High 0.5-1.3 [facility] Comment on above: Performed By: #### 2 [id number] #### [facility] [address] [place] [address] Globulin (S) [Mass/Vol] 4.5 g/dL High 1.4-4.0 [facility] Comment on above: Performed By: #### 2 [id number] #### [facility] [address] [place] [address] Protein [Mass/Vol] 7.9 g/dL High 6.0-7.8 [facility] Comment on above: Performed By: #### 2 [id number] #### [facility] [address] [place] [address] Urea nitrogen [Mass/Vol] 29 mg/dL High 5-21 [facility] Comment on above: Performed By: #### 2 [id number] #### [facility] [address] [place] [address] Urea nitrogen/Creatinine [Mass ratio] 17 No Units Normal 10-20 [facility] Comment on above: Performed By: #### 2 [id number] #### [facility] [address] [place] [address] Anion gap [Moles/Vol] 17 mmol/L High 6-16 [facility] Comment on above: Performed By: #### 2 [id number] #### [facility] [address] [place] [address] Calcium [Mass/Vol] 8.8 mg/dL Low 8.9-11.1 [facility] Comment on above: Performed By: #### 2 [id number] #### [facility] [address] [place] [address] Chloride [Moles/Vol] 96 mmol/L Low 101-111 [facility] Comment on above: Performed By: #### 2 [id number] #### [facility] [address] [place] [address] CO2 [Moles/Vol] 25 mmol/L Normal 21-31 [facility] Comment on above: Performed By: #### 2 [id number] #### [facility] [address] [place] [address] Glucose [Mass/Vol] 354 mg/dL High 55-199 [facility] Comment on above: Result Comment: If t his glucose result represents a fasting glucose, interpretation should refer to the following reference range: 55-99 mg/dL Performed By: #### 2 [id number] #### [facility] [address] [place] [address] Potassium [Moles/Vol] 3.7 mmol/L Normal 3.5-5.3 [facility] Comment on above: Performed By: #### 2 [id number] #### [facility] [address] [place] [address] Sodium [Moles/Vol] 134 mmol/L Low 135-145 [facility] Comment on above: Performed By: #### 2 [id number] #### [facility] [address] [place] [address] Consent for Treatmenton 0 Consent for Treatment [id number]:1 27 Normal [facility] ED Clinical Summaryon 2022 ED Clinical Summary (Inserted Image. Anna ble to display) [address] [address] ED Clinical Summary Person Information Name: ORGAN, ADDIE J Laura/[facility] Age: 47 Years : 1975 Sex: Female Language: Sierra Leonean PCP: LAURENT FRANCO CNP Marital Status: Phone: [phone] Visit Id: Visit Reason: Foot pain-swelling; Skin problem; Post surgical problem; INFECTION Speciality: Acuity: 3 Enc Type: Observation Med Service: Emergency Arrival: 10/28/2022 17:37:45 Discharge: LOS: 000 05:18 Checkin: 10/28/2022 17:37:45 Checkout: 10/28/2022 22:55:17 Dispo Type: Admitted as IP to this [facility] EVENTS: Event Name Event Status Request [...] 10/28/2022 22:55:17 10/28/2022 22:55:17 10/28/2022 22:55:17 ADDRESS: [address] [place] [id number] PHYS DOC NOTES: MEDICAL INFORMATION: Prescriptions Given: Medications [...] kidney injury); Cellulitis of foot; Sepsis Normal [facility] ED Note-Physicianon 10-29-19 ED Note-Physician Patient was signed o ut to me by the outgoing physician. She presented to the ED for concerns of possible infection of the right foot which she had an operation on at [place] last week. At time of signout she [...] operation and her orthopedic surgeon are at [place] we attempted to have her transferred to [place] for further care. I was informed that the hospitalist at [place] had spoken to the orthopedic fellow Dr. Mcneal and after their conversation they declined the transfer of the patient due to not having infectious disease on-call at their facility. We attempted to reach back out to Dr. Mcneal or Dr. Amaro to discuss this as it is a localized infection to their postoperative site. Dr. Mcneal called our ammunition assembly laborer back and told her that he had [...] case with the hospitalist on-call here at [facility] and they accepted the patient into their care for further medical treatment and possible reevaluation of future transfer for evaluation by orthopedic surgeon. Dismal ED diagnoses: sepsis; acute kidney injury Normal [facility] Comment on above: Result Comment: Elec tronically Signed By: Amador Nickerson DO\.br\Date and Time Signed: 10/28/22 21:36 EDT ED Note-Physician Basic Information Time Seen: Preston Lugo DO 10/28/2022 17:38 Chief Complaint Pt had hardware removed from R foot by [facility] in [place] on . Surgical site now appears infected and is painful. Pt also has wounds to L foot that are painful. Tramadol at 1430. History of Present Illness 47 female presents emergency department by EMS with concern for infected right foot. Patient states that she just had surgery recently at [place] after having some hardware removed from her right foot as there was concern that this hardware may be contributing to her infection. She was hospitalized discharged home on Augmentin and Bactrim. Patient states that despite this she continues to have redness and body aches and chills and is concerned about continued infection in that right foot. Patient did have this procedure at [place] its unclear why she came here today other than she was dissatisfied with [place]. She has been taking which she describes [...] Hysterectomy, inserti (more content not included)... Normal [facility] Comment on above: Result Comment: Elec tronically Signed By: Preston Lugo DO\.br\Date and Time Signed: 10/28/22 18:30 EDT ED Patient Education Noteon 10-28-2022 ED Patient Education Note Normal [facility] ED Patient Summaryon 023 ED Patient Summary (Inserted Image. Anna ble to display) [place] [id number] Patient Discharge Instructions Person Information Name: MARILYNADDIE Jyoti Age: 47 Years Arrival Date: 10/28/2022 17:37:45 Discharge Diagnosis: SOLO (acute kidney injury); Cellulitis of foot; Sepsis Primary Care Physician: LAURENT FRANCO CNP Provider Information Primary Provider: Preston Lugo DO Advanced Web Feeder:None The exam and treatment you received in the Emergency Department were for an urgent problem and are not intended as complete care. It is important that you follow up with a doctor, nurse practitioner, or physician?s business banking sales assistant for ongoing care. If your symptoms [...] opioids can be used to help relieve jkoxmhkz-zp-cuzpyz pain and are often prescribed following a [...] be struggling with addiction, tell your health client care manager and ask for guidance or call [facility]?S National Helpline at 9-069-122-[facility]. l Source: [place] Department of Health and Human Services/Center for Disease Control & Prevention [facility] Medications Given: Medic (more content not included)... Normal [facility] Lactic Acidon 10-28-2022 Lactate [Mass/Vol] 1.6 mmol/L Normal 0.5-2.2 [facility] Comment on above: Performed By: #### 2 [id number] #### [facility] [address] [place] [address] PT & PTTon 10-28-2022 aPTT Coag (PPP) [Time] 29.9 second(s) Normal 25.1-36.5 [facility] Comment on above: Result Comment: Para meter 15 days - 4 weeks 1 - 5 months 6 - 11 months 1 - 5 years 6 - 10 years 11 - 17 years PTT Mean: 35.4 (27.6-45.6) Mean: 33.5 (24.8-40.7) Mean: 32.4 (25.1-40.7) Mean: 31.6 (24.0-39.2) Mean: 31.6 (26.9-38.7) Mean: 31.0 (24.6-38.4) Pediatric Reference ranges were obtained from a study by Brown Palafox et al. prepared from 1437 samples obtained at 7 different centers using the same coagulation reagent and instrumentation as [facility]. Currently there are no coagulation studies available worldwide for children to 14 days, and no normal ranges. Heparin therapeutic range (represented by Anti-Factor Xa activity of 0.2 - 0.4 U/mL) corresponds to PTT of 56.6 - 109.0 sec. Performed By: #### 2 [id number] #### [facility] [address] [place] [address] INR Coag (PPP) [Relative time] 1.2 {INR} Invalid Interpretation Code [facility] Comment on above: Result Comment: INR results are specifically intended to assess patients stabilized on long-term Anticoagulation therapy suggested INR?s ?Less Intensive Anticoagulation? 2.0 ? 3.0 Conventional Range 3.0 ? 4.5 Performed By: #### 2 [id number] #### [facility] [address] [place] [address] PT Coag (PPP) [Time] 13.1 second(s) High 9.4-12.5 [facility] Comment on above: Result Comment: 15 [...] ranges were obtained from a study by Brown Palafox et al. prepared from 1437 samples obtained at 7 different centers using the same coagulation reagent and instrumentation as [facility]. Currently there are no coagulation studies available worldwide for children to 14 days, and no normal ranges. Performed By: #### 2 [id number] #### [facility] [address] [place] [address] Pre-Arrival Noteon 3 Pre-Arrival Note Pre-Arrival Summary Name: [facility], Current Date: 10/28/2022 17:42:54 EDT Gender: Female Date of : Age: 47 Pre-Arrival Type: EMS ETA: 10/28/2022 18:00:00 EDT Primary Care Physician: Presenting Problem: Infected Surgical Site--RM 6 Pre-Arrival User: Milly Long Referring Source: Location: [place] Completion Date/Time: 10/28/2022 00:00:00 [facility] Emergency Department Pre-Hospital Report Form ____ Vital Signs: Pre-Hospital Report: Treatment in Route: Response to Treatment: Misc. Issues: Normal [facility] eGFRon 10-28-2022 GFR/1.73 sq M.predicted among non-blacks MDRD (S/P/Bld) [Vol rate/Area] 37 mL/min/1.73 m2 Low >=59 [facility] Comment on above: Order Comment: Order added by Discern Expert. Result Comment: Dictaphone Mechanic odell kidney disease could be indicated at eGFR's of less than 60 mL/min/1.73m2. Kidney failure is indicated at less than 15 mL/min/1.73m2. Performed By: #### 2 [id number] #### [facility] [address] [place] [address] CBC AUTO DIFFon 10-22-2022 BASO # 0.1 103/ul Normal 0.0-0.1 [facility] Comment on above: Performed By: #### C BC ####[facility] [address] [place] [id number]. Devin Suresh Basophils/100 WBC (Bld) 0.6 % Normal 0.2-2.0 [facility] Comment on above: Performed By: #### C BC ####[facility] [address] [place], [place] [address]Vz. Devin Suresh EO # 0.2 103/ul Normal 0.0-0.7 [facility] Comment on above: Performed By: #### C BC ####[facility] [address] [place] [address]Dr. Devin Suresh Eosinophils/100 WBC (Bld) 1.8 % Normal 0.9-7.0 [facility] Comment on above: Performed By: #### C BC ####[facility] [address] [place] [address]Dr. Devin Suresh Erythrocyte distribution width (RBC) [Ratio] 12.0 % Normal 11.0-15.0 [facility] Comment on above: Performed By: #### C BC ####[facility] [address] [place], [place] [address]Dr. Devin Suresh Hematocrit (Bld) [Volume fraction] 28.3 % Critically low 36.0-48.0 [facility] Comment on above: Performed By: #### C BC ####[facility] [address] [place], [place] [address]Dr. Devin Suresh Hemoglobin (Bld) [Mass/Vol] 9.5 g/dL Critically low 12.0-16.0 [facility] Comment on above: Performed By: #### C BC ####[facility] [address] [place], [place] [address]Dr. Devin Suresh IG # 0.05 10e3/ul Critically high 0.00-0.03 [facility] Comment on above: Performed By: #### C BC ####[facility] [address] [place], [place] [address]Dr. Devin Suresh IG % 0.6 % Critically high 0.0-0.5 [facility] Comment on above: Performed By: #### C BC ####[facility] [address] [place], [place] [address]Dr. Devin Suresh LYMPH # 1.9 103/ul Normal 1.2-3.8 [facility] Comment on above: Performed By: #### C BC ####[facility] [facility] Yqitwssvyw[address] [place], [place] [address]DrMaris Suresh Lymphocytes/100 WBC (Bld) 20.4 % Critically low 20.5-60.0 [facility] Comment on above: Performed By: #### C BC ####[facility] Coifzlmvxr[address] [place] [address]DrMaris Suresh MANUAL DIFF REQ NO Normal [facility] Comment on above: Performed By: #### C BC ####[facility] Hylsjzjimm1101 [place] [address]DrMaris Suresh MCH (RBC) [Entitic mass] 30.6 pg Normal 26.7-34.0 [facility] Comment on above: Performed By: #### C BC ####[facility] Ysejxusqig[address] [place], [place] [address]DrMaris Suresh MCHC (RBC) [Mass/Vol] 33.6 g/dL Normal 29.9-35.2 [facility] Comment on above: Performed By: #### C BC ####[facility] Dzbbrhpurv[address] [place], [place] [address]DrMaris Suresh MCV (RBC) [Entitic vol] 91.3 fL Normal 81.0-99.0 [facility] Comment on above: Performed By: #### C BC ####[facility] Gejeepyqwz[address] [place], [place] [address]DrMaris Suresh MONO # 0.6 103/ul Normal 0.3-0.8 [facility] Comment on above: Performed By: #### C BC ####[facility] Mndzlmwugq[address] [place], [place] [address]DrMaris Suresh Monocytes/100 WBC (Bld) 7.1 % Normal 1.7-12.0 [facility] Comment on above: Performed By: #### C BC ####[facility] Llpubtsqxm8[address] [place], [place] [address]DrMaris Suresh NEUT # 6.3 103/ul Normal 1.4-6.5 [facility] Comment on above: Performed By: #### C BC ####[facility] Bqzrxuiznw7[address] [place], [place] [address]DrMaris Suresh Neutrophils/100 WBC (Bld) 69.5 % Normal 43.0-75.0 [facility] Comment on above: Performed By: #### C BC ####[facility] Orlwerzgsi45[address] [place] [address]Dr. Devin Suresh Platelet mean volume (Bld) [Entitic vol] 9.5 fL Normal 9.5-13.5 [facility] Comment on above: Performed By: #### C BC ####[facility] Rdpfshdnka5075 [place] [address]Dr. Devin Suresh PLT 309 103/ul Normal 150-450 [facility] Comment on above: Performed By: #### C BC ####[facility] Refhmyexyg0218[address] [place], [place] [address]Dr. Devin Suresh RBC 3.10 106/ul Critically low 4.20-5.40 [facility] Comment on above: Performed By: #### C BC ####[facility] Jmkaanhalp7[address] [place], [place] [address]Dr. Devin Kerwin WBC 9.1 103/ul Normal 4.0-11.0 [facility] Comment on above: Performed By: #### C BC ####[facility] Aobljietux9369[address] [place], [place] [address]Dr. Devin Kerwin CT FOOT RT WO CONon 10-23-[address] FOOT RT WO CON Normal [facility] DRUG SCREEN RAPID (URINE)on 10-22-2022 AMP Negative Normal NEGATIVE [facility] Comment on above: Performed By: #### D RUGRPD ####[facility] Gahzhaknic[address] [place] [id number]. Devin Suresh BAR Negative Normal NEGATIVE [facility] Comment on above: Performed By: #### D RUGRPD ####[facility] Vdjpexaytv[address] [place], [place] [id number]. Devin Suresh BUP Negative Normal NEGATIVE [facility] Comment on above: Performed By: #### D RUGRPD ####[facility] Nuqqhawraz1514 [place] [id number]. Devin Suresh BZO Negative Normal NEGATIVE [facility] Comment on above: Performed By: #### D RUGRPD ####[facility] Kzayfevgho1375 [place] [address]Dr. Devin Suresh KATHY Negative Normal NEGATIVE [facility] Comment on above: Performed By: #### D RUGRPD ####[facility] Bnlhviikwr2247 [place] [phone]. Devin Suresh CUT-OFFS SEE BELOW Normal [facility] Comment on above: Result Comment: AMP (Amphetamine): 500ng/mL, BAR (Barbituates): 200 ng/mL, BZO (Benzodiazepines): 150 ng/mL, BUP (Buprenorphine): 10 ng/mL, KATHY (Cocaine): 150 ng/mL, mAMP (Methamphetamine): 500 ng/mL, MTD (Methadone): 200 ng/mL, OPI (Opiates): 100 ng/mL, OXY (Oxycodone): 100 ng/mL, PCP (Phencyclidine): 25 ng/mL, PPX (Propoxyphene): 300 ng/mL, THC (Cannabinoids): 50 ng/mL, TCA (Trycyclic Antidepressants): 300 ng/mL Performed By: #### D RUGRPD ####[facility] Iricsdbbjl[address] [place], [place] [address]Dr. Devin Suresh DRUG CUT HEADER DRUG CLASS TEST SYST EM CUT-OFF CONCENTRATIONS ARE FOLLOWS: Normal [facility] Comment on above: Performed By: #### D RUGRPD ####[facility] Srhgbafndm[address] [place], [place] [address]Dr. Devin Suresh mAMP Negative Normal NEGATIVE [facility] Comment on above: Performed By: #### D RUGRPD ####[facility] Wrmkkjdudr7[address] [place], [place] [address]Dr. Devin Suresh MTD Negative Normal NEGATIVE [facility] Comment on above: Performed By: #### D RUGRPD ####[facility] Fckmzsehwn88[address] [place], [place] [address]Dr. Devin Suresh OPI Negative Normal NEGATIVE [facility] Comment on above: Performed By: #### D RUGRPD ####[facility] Vztgpwsaih26[address] [place], [place] [address]Dr. Devin Suresh OXY Negative Normal NEGATIVE [facility] Comment on above: Performed By: #### D RUGRPD ####[facility] Hcaowyhdzz7977 [place] [address]Dr. Devin Suresh PCP Negative Normal NEGATIVE [facility] Comment on above: Performed By: #### D RUGRPD ####[facility] Lbawnmwrfp5185 [place] [address]Dr. Devin Suresh PPX Negative Normal NEGATIVE [facility] Comment on above: Performed By: #### D RUGRPD ####[facility] Qlosipxics9927 [place] [address]Dr. Devin Suresh TCA Positive Abnormal NEGATIVE [facility] Comment on above: Performed By: #### D RUGRPD ####[facility] Bircvxcnhw1462 [place] [address]Dr. Devin Suresh THC Negative Normal NEGATIVE [facility] Comment on above: Performed By: #### D RUGRPD ####[facility] Hxbjytawdc9004 [place] [address]Dr. Devin Suresh POINT OF CARE GLUCOSEon 05-3 Glucose [Mass/Vol] 400 mg/dL Critically high [address] [place] [address] Comment on above: Performed By: #### P OCGLUC ####[facility] Dtacvayras8331 [place] [address]Dr. Devin Suresh Glucose [Mass/Vol] 284 mg/dL Critically high -106 [facility] Comment on above: Performed By: #### P OCGLUC ####[facility] Jgmozzizpb6588 [place] [address]Dr. Devin Suresh Glucose [Mass/Vol] 161 mg/dL Critically high -106 [facility] Comment on above: Performed By: #### P OCGLUC ####[facility] Tpdziwqxpk5327 [place] [address]Dr. Devin Suresh Glucose [Mass/Vol] 283 mg/dL Critically high -[address] [place] [address] Comment on above: Performed By: #### P OCGLUC ####[facility] Zwfelizflx0647 [place] [address]Dr. Devin Suresh Glucose [Mass/Vol] 316 mg/dL Critically high 74-106 T [facility] Comment on above: Performed By: #### P OCGLUC ####[facility] Mdorzllmlg8617[address] [place], [place] [address]Dr. Devin Suresh PROF 14(COMP METB)on 023 Albumin [Mass/Vol] 2.4 g/dL Critically low 3.4-5.0 [facility] Comment on above: Performed By: #### C MP ####[facility] Qhlanpldgp[address] [place], [place] [address]Dr. Devin Suresh Albumin/Globulin [Mass ratio] 0.6 {ratio} Normal [facility] Comment on above: Performed By: #### C MP ####[facility] Epemdiyakp6834[address] [place], [place] [address]Dr. Devin Suresh ALP [Catalytic activity/Vol] 115 U/L Normal 46-116 [facility] Comment on above: Performed By: #### C MP ####[facility] Ffaabzbshd7346[address] [place], [place] [address]Dr. Devin Suresh ALT [Catalytic activity/Vol] 17 U/L Normal 14-59 [facility] Comment on above: Performed By: #### C MP ####[facility] Dwrmepnqwn9[address] [place], [place] [address]Dr. Devin Suresh Anion gap [Moles/Vol] 12.2 mmol/L Normal [facility] Comment on above: Performed By: #### C MP ####[facility] Pmnseptqya33[address] [place], [place] [address]Dr. Dvein Suresh AST [Catalytic activity/Vol] 15 U/L Normal 15-37 [facility] Comment on above: Performed By: #### C MP ####[facility] Brjedfuohj30[address] [place], [place] [address]Dr. Devin Suresh Bilirubin [Mass/Vol] 0.3 mg/dL Normal 0.2-1.0 [facility] Comment on above: Performed By: #### C MP ####[facility] Gdsyoukdly6932 [place] [phone]. Devin Suresh Calcium [Mass/Vol] 8.6 mg/dL Normal 8.5-10.1 The [facility] Comment on above: Performed By: #### C MP ####[facility] Fstebsokni3497 [place] [phone]. Devin Kerwin Chloride [Moles/Vol] 104 mmol/L Normal 98-107 [facility] Comment on above: Performed By: #### C MP ####[facility] Dnztsmsijt3271 [place] [address]Dr. Devin Kerwin CO2 [Moles/Vol] 25.7 mmol/L Normal 21.0-32.0 [facility] Comment on above: Performed By: #### C MP ####[facility] Gbedllqmrz6113 [place] [address]Dr. Devin Kerwin Creatinine [Mass/Vol] 1.17 mg/dL Critically high 0.55-1.02 [facility] Comment on above: Performed By: #### C MP ####[facility] Ykcvtsmzzj1276 [place] [phone]. Devin Kerwin EGFR-AF LUXEMBOURGER >60 Normal >=60 [facility] Comment on above: Performed By: #### C MP ####[facility] Onejpjriuj8950 [place] [address]Dr. Devin Kerwin EGFR-NON AF LUXEMBOURGER 50 mL/min/1.73m2 Critically low >=60 [facility] Comment on above: Performed By: #### C MP ####[facility] Qggexxhwdz0425 [place] [address]Dr. Tishemily Suresh Globulin (S) [Mass/Vol] 4.1 g/dL Normal [facility] Comment on above: Performed By: #### C MP ####[facility] Qrcuzqyjhl8642 [place] [address]Dr. Tishemily Kerwin Glucose [Mass/Vol] 262 mg/dL Critically high 74-106 [facility] Comment on above: Performed By: #### C MP ####[facility] Belfwkzkao[address] [place], [place] [address]Dr. Devin Suresh Potassium [Moles/Vol] 3.9 mmol/L Normal 3.5-5.1 [facility] Comment on above: Performed By: #### C MP ####[facility] Tyjikvvbpp0734 [place] [address]Dr. Devin Suresh Protein [Mass/Vol] 6.5 g/dL Normal 6.4-8.2 The [facility] Comment on above: Performed By: #### C MP ####[facility] Umaocjmune264[address] [place], [place] [address]Dr. Devin Suresh Sodium [Moles/Vol] 138 mmol/L Normal 136-145 The [facility] Comment on above: Performed By: #### C MP ####[facility] Btcggsedwv14[address] [place], [place] [address]Dr. Devin Suresh Urea nitrogen [Mass/Vol] 23.0 mg/dL Critically high 7.0-18.0 [facility] Comment on above: Performed By: #### C MP ####[facility] Szobuqvryp6[address] [place], [place] [address]Dr. Devin Suresh Urea nitrogen/Creatinine [Mass ratio] 19.7 mg/mg Normal [facility] Comment on above: Performed By: #### C MP ####[facility] Vmorvpmvja6474[address] [place], [place] [address]Dr. Devin Suresh ACETONE SERUMon 10-21-2022 ACETONE Negative Normal NEGATIVE [facility] Comment on above: Performed By: #### A CETON ####[facility] Xtuolaabhr50[address] [place], [place] [address]Dr. Devin Suresh CBC AUTO DIFFon 10-21-2022 BASO # 0.1 103/ul Normal 0.0-0.1 [facility] Comment on above: Performed By: #### C BC ####[facility] Fzogpltprp0134[address] [place], [place] [address]Dr. Devin Suresh Basophils/100 WBC (Bld) 0.4 % Normal 0.2-2.0 [facility] Comment on above: Performed By: #### C BC ####[facility] Iajiaofxea1120 [place] [address]Dr. Devin Suresh EO # 0.2 103/ul Normal 0.0-0.7 [facility] Comment on above: Performed By: #### C BC ####[facility] Gslbsbsqta8034[address] [place], [place] [address]Dr. Devin Suresh Eosinophils/100 WBC (Bld) 1.1 % Normal 0.9-7.0 [facility] Comment on above: Performed By: #### C BC ####[facility] Wxazbbkxch06[address] [place], [place] [address]Dr. Devin Suresh Erythrocyte distribution width (RBC) [Ratio] 12.0 % Normal 11.0-15.0 [facility] Comment on above: Performed By: #### C BC ####[facility] Bpsojjyjfo3818[address] [place], [place] [address]Dr. Devin Suresh Hematocrit (Bld) [Volume fraction] 34.1 % Critically low 36.0-48.0 [facility] Comment on above: Performed By: #### C BC ####[facility] Hjocwzbqrd89[address] [place], [place] [address]Dr. Devin Suresh Hemoglobin (Bld) [Mass/Vol] 11.4 g/dL Critically low 12.0-16.0 [facility] Comment on above: Performed By: #### C BC ####[facility] Ygcgaycnyq215[address] [place], [place] [address]Dr. Devin Suresh IG # 0.05 10e3/ul Critically high 0.00-0.03 [facility] Comment on above: Performed By: #### C BC ####[facility] Kydajahsvt8[address] [place], [place] [address]Dr. Devin Suresh IG % 0.4 % Normal 0.0-0.5 [facility] Comment on above: Performed By: #### C BC ####[facility] Uauvfdghat[address] [place], [place] [address]Dr. Devin Suresh LYMPH # 1.6 103/ul Normal 1.2-3.8 [facility] Comment on above: Performed By: #### C BC ####[facility] Vvtjkscmlh4603 [place] [phone]. Devin Suresh Lymphocytes/100 WBC (Bld) 11.9 % Critically low 20.5-60.0 [facility] Comment on above: Performed By: #### C BC ####[facility] Wmizwumqtt8847 [place] [phone]. Devin Kerwin MANUAL DIFF REQ NO Normal [facility] Comment on above: Performed By: #### C BC ####[facility] Dmsrrcunke0630 [place] [address]Dr. Devin Kerwin MCH (RBC) [Entitic mass] 30.5 pg Normal 26.7-34.0 [facility] Comment on above: Performed By: #### C BC ####[facility] Zhzlzzmwqp1979 [place] [address]Dr. Devin Kerwin MCHC (RBC) [Mass/Vol] 33.4 g/dL Normal 29.9-35.2 [facility] Comment on above: Performed By: #### C BC ####[facility] Gtqvwboiex1814 [place] [address]Dr. Devin Kerwin MCV (RBC) [Entitic vol] 91.2 fL Normal 81.0-99.0 [facility] Comment on above: Performed By: #### C BC ####[facility] Nivglxxnwd[address] [place], [place] [address]Dr. Tishemily Kerwin MONO # 0.7 103/ul Normal 0.3-0.8 [facility] Comment on above: Performed By: #### C BC ####[facility] Tclysvjqdd0022 [place] [address]Dr. Tishemily Suresh Monocytes/100 WBC (Bld) 5.4 % Normal 1.7-12.0 [facility] Comment on above: Performed By: #### C BC ####[facility] Niwrkjrmpt0799[address] [place], [place] [address]Dr. Devin Suresh NEUT # 11.0 103/ul Critically high 1.4-6.5 [facility] Comment on above: Performed By: #### C BC ####[facility] Oejhhpavum8778 [place] [phone]. Devin Suresh Neutrophils/100 WBC (Bld) 80.8 % Critically high 43.0-75.0 [facility] Comment on above: Performed By: #### C BC ####[facility] Nadgkuuovs1916 [place] [phone]. Devin Suresh Platelet mean volume (Bld) [Entitic vol] 9.1 fL Critically low 9.5-13.5 [facility] Comment on above: Performed By: #### C BC ####[facility] Qoysvpwwcz6584 [place] [phone]. Devin Suresh PLT 315 103/ul Normal 150-450 [facility] Comment on above: Performed By: #### C BC ####[facility] Fqlgbdzmpg6919 [place] [phone]. Devin Suresh RBC 3.74 106/ul Critically low 4.20-5.40 [facility] Comment on above: Performed By: #### C BC ####[facility] Mojponqosv2790 [place] [phone]. Devin Suresh WBC 13.6 103/ul Critically high 4.0-11.0 [facility] Comment on above: Performed By: #### C BC ####[facility] Zdaktffhzz5229 [place] [phone]. Devin Suresh CRPon 10-21-2022 CRP 12.8 mg/dL Critically high <=1.0 [facility] Comment on above: Performed By: #### C MP, CRP ####[facility] Yngfhmjqtu0997 [place] [phone]. Devin Suresh LACTATE/LACTIC ACIDon 2022 Lactate [Moles/Vol] 1.6 mmol/L Normal 0.4-2.0 [facility] Comment on above: Performed By: #### L ACT ####[facility] Vjqotunvsu3389 [place] [phone]. Devin Suresh PH VENOUS BLOODon 10-21-2022 PCO2 VENOUS 49.5 mmHg Normal 40.0-52.0 [facility] Comment on above: Performed By: #### P HVEN ####[facility] Otxqgmceic5891 [place] [address]Dr. Devin Suresh pH VENOUS 7.334 Normal 7.330-7.430 [facility] Comment on above: Performed By: #### P HVEN ####[facility] Jrzpnhvxws9489 [place] [address]Dr. Devin Suresh POINT OF CARE GLUCOSEon 09-24 Glucose [Mass/Vol] 151 mg/dL Critically high 74-106 [facility] Comment on above: Performed By: #### P OCGLUC ####[facility] Vqtkstmpyv[address] [place], [place] [address]Dr. Devin Suresh PROF 14(COMP METB)on 023 Albumin [Mass/Vol] 3.1 g/dL Critically low 3.4-5.0 [facility] Comment on above: Performed By: #### C MP, CRP ####[facility] Hzomqzqgfm928[address] [place], [place] [address]Dr. Devin Suresh Albumin/Globulin [Mass ratio] 0.6 {ratio} Normal [facility] Comment on above: Performed By: #### C MP, CRP ####[facility] Rcslzivemb584[address] [place], [place] [address]Dr. Devin Suresh ALP [Catalytic activity/Vol] 132 U/L Critically high 46-116 [facility] Comment on above: Performed By: #### C MP, CRP ####[facility] Rhhoefexem5974 [place] [address]Dr. Devin Suresh ALT [Catalytic activity/Vol] 20 U/L Normal 14-59 [facility] Comment on above: Performed By: #### C MP, CRP ####[facility] Wljxrjfdeh66[address] [place], [place] [address]Dr. Devin Suresh Anion gap [Moles/Vol] 14.4 mmol/L Normal [facility] Comment on above: Performed By: #### C MP, CRP ####[facility] Tigtzqcvhy872[address] [place], [place] [address]Dr. Devin Suresh AST [Catalytic activity/Vol] 20 U/L Normal 15-37 [facility] Comment on above: Performed By: #### C MP, CRP ####[facility] Vrldxnvphp7[address] [place], [place] [address]Dr. Devin Suresh Bilirubin [Mass/Vol] 0.3 mg/dL Normal 0.2-1.0 [facility] Comment on above: Performed By: #### C MP, CRP ####[facility] Pyztljzclt74[address] [place], [place] [address]Dr. Devin Suresh Calcium [Mass/Vol] 9.2 mg/dL Normal 8.5-10.1 [facility] Comment on above: Performed By: #### C MP, CRP ####[facility] Jwzoitzvgo9544[address] [place], [place] [address]Dr. Devin Suresh Chloride [Moles/Vol] 101 mmol/L Normal 98-107 [facility] Comment on above: Performed By: #### C MP, CRP ####[facility] Txpjppotfp220[address] [place], [place] [address]Dr. Devin Suresh CO2 [Moles/Vol] 26.6 mmol/L Normal 21.0-32.0 [facility] Comment on above: Performed By: #### C MP, CRP ####[facility] Gidsysssnn84[address] [place], [place] [address]Dr. Devin Suresh Creatinine [Mass/Vol] 1.34 mg/dL Critically high 0.55-1.02 [facility] Comment on above: Performed By: #### C MP, CRP ####[facility] Tucfaobfhf[address] [place], [place] [address]Dr. Devin Suresh EGFR-AF LUXEMBOURGER 52 mL/min/1.73m2 Critically low >=60 [facility] Comment on above: Performed By: #### C MP, CRP ####[facility] Xkgavzjgkq[address] [place], [place] [address]Dr. Devin Suresh EGFR-NON AF LUXEMBOURGER 43 mL/min/1.73m2 Critically low >=60 [facility] Comment on above: Performed By: #### C MP, CRP ####[facility] [id number] [place] [address]Dr. Devin Suresh Globulin (S) [Mass/Vol] 4.9 g/dL Normal [facility] Comment on above: Performed By: #### C MP, CRP ####[facility] [address]we[address] [place], [place] [address]Dr. Devin Suresh Glucose [Mass/Vol] 210 mg/dL Critically high 74-106 T [facility] Comment on above: Performed By: #### C MP, CRP ####[facility] B[address]xlksn[address] [place], [place] [address]Dr. Devin Suresh Potassium [Moles/Vol] 4.0 mmol/L Normal 3.5-5.1 [facility] Comment on above: Performed By: #### C MP, CRP ####[facility] Gud[address] [place], [place] [address]Dr. Devin Suresh Protein [Mass/Vol] 8.0 g/dL Normal 6.4-8.2 The [facility] Comment on above: Performed By: #### C MP, CRP ####[facility] D[address]kyrwhtk[address] [place], [place] [address]Dr. Devin Suresh Sodium [Moles/Vol] 138 mmol/L Normal 136-145 [facility] Comment on above: Performed By: #### C MP, CRP ####[facility] Qezqhpbpxd[address] [place], [place] [address]Dr. Devin Suresh Urea nitrogen [Mass/Vol] 29.0 mg/dL Critically high 7.0-18.0 [facility] Comment on above: Performed By: #### C MP, CRP ####[facility] Oewuycxouj[address] [place], [place] [address]Dr. Devin Suresh Urea nitrogen/Creatinine [Mass ratio] 21.6 mg/mg Normal [facility] Comment on above: Performed By: #### C MP, CRP ####[facility] [address]he[address] [place], [place] [address]Dr. Devin Suresh SED RATE [facility] 2022 SED RATE 88 mm/hr Critically high <=20 The [facility] Comment on above: Performed By: #### S EDR ####[facility] Vecnaccqbu6644 [place], [place] [address]AoMaris Suresh XR ELBOW RT MIN 3 VIEWSon XR ELBOW RT MIN 3 VIEWS Normal The [facility] XR FOOT RT MIN 3 VIEWSon XR FOOT RT MIN 3 VIEWS Normal The [facility] BASIC METABOLIC PANELon 09-22 Anion gap [Moles/Vol] 14 mmol/L Normal 10-20 [facility] Comment on above: Performed By: #### C H8, CRP, MG ####[facility] [id number] [place], [place], Calcium [Mass/Vol] 9.1 mg/dL Normal 8.4-10.4 [facility] Comment on above: Performed By: #### C H8, CRP, MG ####[facility] [id number] [place], [place], Chloride [Moles/Vol] 104 mmol/L Normal 97-111 [facility] Comment on above: Performed By: #### C H8, CRP, MG ####[facility] [id number] [place], CO2 [Moles/Vol] 27 mmol/L Normal 21-30 [facility] Comment on above: Performed By: #### C H8, CRP, MG ####[facility] [id number] [place], Creatinine [Mass/Vol] 0.90 mg/dL Normal 0.50-1.10 [facility] Comment on above: Performed By: #### C H8, CRP, MG ####[facility] [id number] [place], ESTIMATED GFR (CKD-EPI) 80 mL/min/1.73sqm Normal >=60 [facility] Comment on above: Result Comment: 2020 CKD EPI Equation using Creatinine without Race Comment: Estimated glomerular filtration rate (eGFR) is calculated without a race coefficient. Values should be interpreted in the context of the patient's full clinical presentation. Reference: 1. German Whyte, Negrita M, Jomar MEJÍA, et al.. A Unifying Approach for GFR Estimation: Recommendations of the NKF-ASN Task Force on Reassessing the Inclusion of Race in Diagnosing Kidney Disease. Chinese Journal of Kidney Diseases 2021;79(2):268-88.e1. 2. N Engl J Med 2020 Vol. 385 Issue 19 Pages 5085-2876 Performed By: #### C H8, CRP, MG ####[facility] [id number] [place], Glucose [Mass/Vol] 82 mg/dL Normal 68-110 [facility] Comment on above: Performed By: #### C H8, CRP, MG ####[facility] [id number] [place], Potassium [Moles/Vol] 3.6 mmol/L Normal 3.3-5.3 [facility] Comment on above: Performed By: #### C H8, CRP, MG ####[facility] [id number] [place], Sodium [Moles/Vol] 141 mmol/L Normal 135-148 The [facility] Comment on above: Performed By: #### C H8, CRP, MG ####[facility] [id number] [place], Urea nitrogen [Mass/Vol] 18 mg/dL Normal 8-22 [facility] Comment on above: Performed By: #### C H8, CRP, MG ####[facility] [id number] [place], [place], C-REACTIVE PROTEINon 023 CRP 0.8 mg/dL High <0.8 [facility] Comment on above: Performed By: #### C H8, CRP, MG ####[facility] [id number] [place], [place], CBC WITH DIFFERENTIALon 09-22 Basophils (Bld) [#/Vol] 0.11 10*3/uL Normal 0.00-0.20 [facility] Comment on above: Performed By: #### C BCDSAT, ESR ####[facility] [id number] [place], Basophils/100 WBC (Bld) 0.9 % Normal <=1.9 [facility] Comment on above: Performed By: #### C CINDAAT, ESR ####S PATHOLOGY [id number] [place], Eosinophils (Bld) [#/Vol] 0.23 10*3/uL Normal 0.00-0.70 [facility] Comment on above: Performed By: #### C BCDSAT, ESR ####[facility] PATHOLOGY [id number] [place], Eosinophils/100 WBC (Bld) 1.9 % Normal 0.1-4.0 [facility] Comment on above: Performed By: #### C CINDAAT, ESR ####[facility] PATHOLOGY [id number] [place], Erythrocyte distribution width (RBC) [Ratio] 12.6 % Normal 11.5-14.5 [facility] Comment on above: Performed By: #### C CINDAAT, ESR ####[facility] PATHOLOGY [id number] [place], Hematocrit (Bld) [Volume fraction] 37.9 % Normal 36.0-46.0 [facility] Comment on above: Performed By: #### C BCSAMYAT, ESR ####[facility] PATHOLOGY [id number] [place], Hemoglobin (Bld) [Mass/Vol] 12.6 g/dL Normal 12.0-15.0 [facility] Comment on above: Performed By: #### C BCDSAT, ESR ####[facility] PATHOLOGY [id number] [place], Lymphocytes (Bld) [#/Vol] 3.20 10*3/uL Normal 1.00-4.80 [facility] Comment on above: Performed By: #### C BCDSAT, ESR ####[facility] PATHOLOGY [id number] [place], Lymphocytes/100 WBC (Bld) 26.2 % Normal 24.0-44.0 The [facility] Comment on above: Performed By: #### Isabell STARK, ESR ####S PATHOLOGY [id number] [place], MCH (RBC) [Entitic mass] 30.1 pg Normal 26.0-34.0 [facility] Comment on above: Performed By: #### Isabell STARK, ESR ####[facility] PATHOLOGY [id number] [place], MCHC (RBC) [Mass/Vol] 33.2 g/dL Normal 32.0-35.9 The [facility] Comment on above: Performed By: #### Isabell STARK, ESR ####S PATHOLOGY [id number] [place], MCV (RBC) [Entitic vol] 91 fL Normal 80-100 The [facility] Comment on above: Performed By: #### Isabell STARK, ESR ####[facility] PATHOLOGY [id number] [place] [address], MONOCYTE DISTRIBUTION WIDTH 21 High <=20 The [facility] Comment on above: Performed By: #### Isabell STARK, ESR ####[facility] PATHOLOGY [id number] [place] [address], Monocytes (Bld) [#/Vol] 0.62 10*3/uL Normal 0.20-1.00 [facility] Comment on above: Performed By: #### Isabell STARK, ESR ####S PATHOLOGY [id number] [place], Monocytes/100 WBC (Bld) 5.1 % Normal 2.0-11.0 The [facility] System Comment on above: Performed By: #### Isabell STARK, ESR ####S PATHOLOGY [id number] [place] [address], Neutrophils (Bld) [#/Vol] 8.05 10*3/uL High 1.50-8.00 [facility] Comment on above: Performed By: #### Isabell STARK, ESR ####S PATHOLOGY [id number] [place] [address], Neutrophils/100 WBC (Bld) 66.0 % Normal 31.0-76.0 The [facility] Comment on above: Performed By: #### Isabell STARK, ESR ####[facility] PATHOLOGY [id number] [place], Platelet mean volume (Bld) [Entitic vol] 7.3 fL Low 7.5-11.2 The [facility] Comment on above: Performed By: #### Isabell STARK, ESR ####[facility] PATHOLOGY [id number] [place], Platelets (Bld) [#/Vol] 380 10*3/uL Normal 150-400 [facility] Comment on above: Performed By: #### Isabell STARK, ESR ####[facility] PATHOLOGY [id number] [place], RBC (Bld) [#/Vol] 4.18 10*6/uL Normal 4.00-5.20 [facility] Comment on above: Performed By: #### Isabell STARK, ESR ####[facility] PATHOLOGY [id number] [place], WBC (Bld) [#/Vol] 12.2 10*3/uL High 4.5-11.5 [facility] Comment on above: Performed By: #### Isabell STARK, ESR ####[facility] PATHOLOGY [id number] [place], [place], CT C-SPINE W/ CONTRASTon CT C-SPINE W/ CONTRAST EXAMINATION: CT C-SPINE W/ CONTRAST 10/07/2022 04:29 AM CLINICAL HISTORY: cauda equina ASSOCIATED DIAGNOSIS: cauda equina ORDERING PROVIDER: NIKKO KENDRICK TECHNOLOGISTS NOTE: COMPARISON: None TECHNIQUE: Thin isotropic axial [...] neural foraminal narrowing. MACRO: None Normal [facility] CT Cervical spine W contrast [place] 10-07-2022 EXAMINATION: CT C-SP INE W/ CONTRAST 10/07/2022 04:29 AM CLINICAL HISTORY: cauda equina ASSOCIATED DIAGNOSIS: cauda equina ORDERING PROVIDER: NIKKO KENDRICK TECHNKENNETH NOTE: COMPARISON: None TECHNIQUE: Thin isotropic axial [...] bulging without neural foraminal narrowing. MACRO: None RADIOLOGY Kwaku Herman MD - 10/07/2022 EXAMINATION: CT C-SPINE W/ CONTRAST 10/07/2022 04:29 AM CLINICAL HISTORY: cauda equina ASSOCIATED DIAGNOSIS: cauda equina ORDERING PROVIDER: NIKKO KENDRICK TECHNKENNETH NOTE: COMPARISON: None TECHNIQUE: Thin isotropic axial [...] bulging without neural foraminal narrowing. MACRO: None [facility] CT Cervical spine W contrast IVOrdered By: Kwaku Herman on 10-07-2022 [facility] Work Phone: CT T-SPINE/L-SPINE W/ CONTRA STon [...] or nerve impingement. MACRO: None Normal [facility] CT Thoracic and lumbar spine W contrast [place] 10-07-2022 EXAMINATION: CT T-SPINE/L-SPINE W/ CONTRAST 10/07/2022 04:29 AM CLINICAL HISTORY: cauda equina ASSOCIATED DIAGNOSIS: cauda equina ORDERING PROVIDER: NIKKO DING NOTE: COMPARISON: None TECHNIQUE: Thin axial images [...] NIKKO DING NOTE: COMPARISON: None TECHNIQUE: Thin axial images [...] canal stenosis or nerve impingement. 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 Antiplatelet/Anticoagulan [...] please include ALL residents below in any [facility] Chat communications: Ortho Trauma Team A: Courtney Jessica PGY1 ([phone]) Jacob Lo PGY3 ([phone]) After 5pm, weekends, and holidays please page Ortho consult pager, [phone] Normal The [facility] ED Provider Noteson 10-08-19 [employer]eral [employer] Teacher Authentication Interface Message Text ED RESIDENT CONTINUATION [...] diabetes mellitus with diabetic neuropathy, unspecified whether senior care insulin use (HCC) [E11.40] Disposition: Home The [...] precautions listed on the discharge paperwork. Kylee Brown DO Rotating Resident, PGY-1 Normal [facility] ERYTHROCYTE SEDIMENTATION RA Estephania 10-07-2022 ESR (Bld) [Velocity] 48 mm/h High <=30 [facility] Comment on above: Performed By: #### C BCDSAT, ESR ####[facility] [id number] [place], [address] MAGNESIUMon 10-07-2022 Magnesium [Mass/Vol] 1.4 mg/dL Low 1.6-2.8 [facility] Comment on above: Performed By: #### C H8, CRP, MG ####S PATHOLOGY [id number] [place], [place], No Panel Informationon 10-07 Radiology Study observation (narrative) [facility] PROTHROMBIN TIME AND INRon 0 10-07-2022 INR Coag (PPP) [Relative time] 1.12 {INR} High 0.90-1.10 [facility] Comment on above: Performed By: #### P T #### S PATHOLOGY LABORATORY [address] [place], [place], PT Coag (PPP) [Time] 12.6 s Normal 9.7-12.9 [facility] Comment on above: Performed By: #### P T #### [facility] LABORATORY [address], [place], INR Coag (PPP) [Relative time] 1.12 {INR} High 0.90 - 1.10 [facility] Interpretation and review of laboratory results Abnormal [facility] PT Coag (PPP) [Time] 12.6 s [facility] TYPE AND SCREENon 10-07-2022 ABO and Rh group Nom (Bld) Blood group A Rh(D) positive [facility] ABO and Rh group Nom (Bld) No Previous Results [facility] Blood group antibody screen Ql Negative [facility] ABO and Rh group Nom (Bld) Blood group A Rh(D) positive Normal [facility] Comment on above: Performed By: #### T S #### S PATHOLOGY LABORATORY [address], [place], ABO and Rh group Nom (Bld) No Previous Results Normal [facility] Comment on above: Performed By: #### T S #### S PATHOLOGY LABORATORY [address], [place], ABSC INT Negative Normal [facility] Comment on above: Performed By: #### T S #### S PATHOLOGY LABORATORY [address], [place], Basic metabolic 2000 panelon 10-06-2022 Anion gap [Moles/Vol] 14 mmol/L 10 - 20 Met [facility] Calcium [Mass/Vol] 9.1 mg/dL 8.4 - 10. [...] Inclusion of Race in Diagnosing Kidney Disease. Chinese Journal of Kidney Diseases 2021;79(2):268-88.e1. 2. N Engl J Med 2020 Vol. 385 Issue 19 Pages 1207-5477 Glucose [Mass/Vol] 82 mg/dL 68 - 110 mg/dL [facility] Interpretation and review of laboratory results Normal [facility] Potassium [Moles/Vol] 3.6 mmol/L 3.3 - 5.3 mmol/L [facility] Sodium [Moles/Vol] 141 mmol/L 135 - 148 mmol/L [facility] Urea nitrogen [Mass/Vol] 18 mg/dL 8 - 22 mg/dL [facility] C-REACTIVE PROTEINon 023 CRP [Mass/Vol] 0.8 mg/dL High NINF [...] (Bld) 66.0 % 31.0 - 76.0 % [facility] Platelet mean volume (Bld) [Entitic vol] 7.3 fL Low 7.5 - 11.2 fL [facility] Platelets (Bld) [#/Vol] 380 10*3/uL 150 - 400 K/uL [facility] RBC (Bld) [#/Vol] 4.18 10*6/uL [facility] WBC (Bld) [#/Vol] 12.2 10*3/uL High 4.5 - 11.5 K/uL [facility] CHEMISTRYOrdered By: SYSTEM SYSTEM on 10-06-2022 Albumin [Mass/Vol] 3.5 g/dL Normal 3.3 - 5.0 gm/dL [facility] Remisol Albumin/Globulin [Mass ratio] 0.9 {ratio} Low [...] 71 mL/min/1.73 m2 Normal >=59mL/min/ 1.73 m2 [facility] Chem S Globulin (S) [Mass/Vol] 3.8 g/dL Normal 1.4 - 4.0 gm/dL [facility] Remisol Glucose [Mass/Vol] 223 mg/dL High 55 - 199 mg/dL [facility] Potassium [Moles/Vol] 3.7 mmol/L Normal 3.5 - 5.3 mmol/L [facility] Protein [Mass/Vol] 7.3 g/dL Normal 6.0 - 7.8 gm/dL [facility] Sodium [Moles/Vol] 137 mmol/L Normal 135 - 145 mmol/L [facility] Urea nitrogen [Mass/Vol] 20 mg/dL Normal 5 - 21 mg/dL [facility] Urea nitrogen/Creatinine [Mass ratio] 20 mg/mg Normal 10 - 20 [facility] CHEMISTRYOrdered By: Lab ROP User on 10-06-2022 Glucose [Mass/Vol] 229 mg/dL High 55 - 99 mg/dL [facility] POC Subsection Comment on above: Result Comment: Peter yeh RN/ POC Device SN [id number] Invalid Interpretation Code [facility] POC Subsection POC User ID [id number] Invalid Interpretation Code [facility] POC Subsection POC Username BROOKLYNN BURCIAGA Invalid Interpretation Code [facility] POC Subsection ED Provider Noteson 10-07-19 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 Signed out at 2300 awaiting spine eval and discussion with or [employer] regarding device compatibility. I saw and evaluated [...] Complaint Patient presents with Chart Transfer from [facility] for MRI Director Of Restaurant Operations: not needed - patient preferred language is Sierra Leonean. The history is provided by the Patient. Addie Jean Baptiste is a 47 year old female PMH DM2 c/b severe diabetic neuropathy, retention, hypothyroidism, bipolar presenting to the ED for lower extremity weakness and incontinence. Patient was transferred from [facility] for concerns of cauda equina syndrome. Patient [...] to CT myelogram Discussion with External Provider: Professional Services Manager from spine service recommends MRI or CT myelogram. Negative CT myelogram - recommend to follow up outpatient Discussion with External Provider: Professional Services Manager from IR service recommends CT myelogram as cardiology cannot interrogate pacemaker due to another emergent procedure. Secondary Considerations / Diagnoses Addressed During this Visit: DM assessed and could be contributing to patient's weakness from neuropathy. Evaluated (more content not included)... Normal [facility] ERYTHROCYTE SEDIMENTATION RA Estephania 10-06-2022 ESR (Bld) [Velocity] 48 mm/h High [facility] Interpretation and review of laboratory results Abnormal [facility] HEMATOLOGYOrdered By: SYSTEM SYSTEM on [...] 6.8 fL Normal 6.4 - 10.8 fL [facility] HemeAutoSS Platelets (Bld) [#/Vol] 332.0 E9/L Normal 150.0 - 500.0 E9/L [facility] HemeAutoSS RBC (Bld) [#/Vol] 4.2 E12/L Low 4.3 - 5.9 E12/L [facility] HemeAutoSS WBC corrected for nucl RBC Auto (Bld) [#/Vol] 11.8 E9/L High 4.0 - 11.0 E9/L [facility] HemeAutoSS MAGNESIUMon 10-06-2022 Magnesium [Mass/Vol] 1.4 mg/dL Low 1.6 - 2 .8 mg/dL [facility] No Panel Informationon 10-06 Interpretation and review of laboratory results Abnormal [facility] XR KUB 1 VIEWon 09-18-2022 XR KUB 1 VIEW Normal The [facility] CHEMISTRYOrdered By: Lab ROP User on 09-15-2022 Glucose [Mass/Vol] 166 mg/dL High 55 - 99 mg/dL [facility] POC Subsection Comment on above: Result Comment: Peter SERNA POC Device SN [id number] Invalid Interpretation Code [facility] POC Subsection POC User ID [id number] Invalid Interpretation Code [facility] POC Subsection POC Username Michi Huynh Invalid Interpretation Code [facility] POC Subsection Glucose [Mass/Vol] 172 mg/dL High 55 - 99 mg/dL [facility] POC Subsection Comment on above: Result Comment: Peter SERNA POC Device SN [id number] Invalid Interpretation Code [facility] POC Subsection POC User ID [id number] Invalid Interpretation Code [facility] POC Subsection POC Username Michi Huynh Invalid Interpretation Code [facility] POC Subsection CHEMISTRYOrdered By: SYSTEM SYSTEM on 09-15-2022 Anion gap [Moles/Vol] 10 mmol/L Normal 6 - 16 mEq/L [facility] Chloride [Moles/Vol] 105 mmol/L Normal 101 - 1 11 mmol/L [facility] CO2 [Moles/Vol] 27 mmol/L Normal 21 - 31 mmol/L [facility] Potassium [Moles/Vol] 4.8 mmol/L Normal 3.5 - 5.3 mmol/L [facility] Sodium [Moles/Vol] 137 mmol/L Normal 135 - 145 mmol/L [facility] Remisol CHEMISTRYOrdered By: Lab ROP User on 09-14-2022 Glucose [Mass/Vol] 219 mg/dL High 55 - 99 mg/dL [facility] POC Subsection Comment on above: Result Comment: Prema saldaña Meter POC Device SN [id number] Invalid Interpretation Code [facility] POC Subsection POC User ID [id number] Invalid Interpretation Code [facility] POC Subsection POC Username TONIA BARBOSA Invalid Interpretation Code [facility] POC Subsection CHEMISTRYOrdered By: Elizabeth gorman on 09-14-2022 HbA1c (Bld) [Mass fraction] 9.4 % High <=5.9% [facility] ChemAutoSS CHEMISTRYOrdered By: SYSTEM SYSTEM on 09-14-2022 Anion gap [Moles/Vol] 8 mmol/L Normal 6 - 16 mEq/L [facility] Remisol Calcium [Mass/Vol] 8.0 mg/dL Low 8.9 - 11. 1 mg/dL [facility] Remisol Chloride [Moles/Vol] 108 mmol/L Normal 101 - 1 11 mmol/L [facility] Remisol CO2 [Moles/Vol] 26 mmol/L Normal 21 - 31 mmol/L [facility] Remisol Creatinine [Mass/Vol] 1.1 mg/dL Normal 0.5 - 1.3 mg/dL [facility] Remisol GFR/1.73 sq M.predicted among blacks MDRD (S/P/Bld) [Vol rate/Area] mL/min/1.73 m2 Normal >=59mL/min/ 1.73 m2 [facility] Chem S GFR/1.73 sq M.predicted among non-blacks MDRD (S/P/Bld) [Vol rate/Area] 54 mL/min/1.73 m2 Low >=59mL/min/ 1.73 m2 [facility] Chem S Glucose [Mass/Vol] 152 mg/dL Normal 55 - 199 mg/dL [facility] Potassium [Moles/Vol] 4.2 mmol/L Normal 3.5 - 5.3 mmol/L [facility] Remisol Sodium [Moles/Vol] 138 mmol/L Normal 135 - 145 mmol/L [facility] Remisol Urea nitrogen [Mass/Vol] 27 mg/dL High 5 - 21 mg/dL [facility] Remisol Urea nitrogen/Creatinine [Mass ratio] 24 mg/mg High 10 - 20 [facility]isol HEMATOLOGYOrdered By: SYSTEM SYSTEM on 09-14-2022 Basophils/100 WBC (Bld) 0.8 [...] 92.3 fL Normal 80.0 - 100.0 fL [facility] Platelet mean volume (Bld) [Entitic vol] 7.0 fL Normal 6.4 - 10.8 fL [facility]SS Platelets (Bld) [#/Vol] 325.0 E9/L Normal 150.0 - 500.0 E9/L [facility] RBC (Bld) [#/Vol] 3.5 E12/L Low 4.3 - 5.9 E12/L [facility] WBC corrected for nucl RBC Auto (Bld) [#/Vol] 8.0 E9/L Normal 4.0 - 11.0 E9/L [facility]eAutoSS CHEMISTRYOrdered By: SYSTEM SYSTEM on 09-13-2022 Anion gap [Moles/Vol] 11 mmol/L Normal 6 - 16 mEq/L [facility] Calcium [Mass/Vol] 8.3 mg/dL Low 8.9 - 11. 1 mg/dL [facility] Chloride [Moles/Vol] 105 mmol/L Normal 101 - 1 11 mmol/L [facility] CK [Catalytic activity/Vol] 43 [iU]/d Normal 14 - 261 Int._Unit/L [facility] CO2 [Moles/Vol] 25 mmol/L Normal 21 - 31 mmol/L [facility] Creatinine [Mass/Vol] 1.3 mg/dL Normal 0.5 - 1.3 mg/dL [facility] Remisol GFR/1.73 sq M.predicted among blacks MDRD (S/P/Bld) [Vol rate/Area] 54 mL/min/1.73 m2 Low >=59mL/min/ 1.73 m2 [facility] Chem S GFR/1.73 sq M.predicted among non-blacks MDRD (S/P/Bld) [Vol rate/Area] 44 mL/min/1.73 m2 Low >=59mL/min/ 1.73 m2 [facility] Chem S Glucose [Mass/Vol] 98 mg/dL Normal 55 - 199 mg/dL [facility] Potassium [Moles/Vol] 4.3 mmol/L Normal 3.5 - 5.3 mmol/L [facility] Sodium [Moles/Vol] 137 mmol/L Normal 135 - 145 mmol/L [facility] Urea nitrogen [Mass/Vol] 26 mg/dL High 5 - 21 mg/dL [facility] Urea nitrogen/Creatinine [Mass ratio] 20 mg/mg Normal 10 - 20 [facility] Lactate [Mass/Vol] 1.0 mmol/L Normal 0.5 - 2.2 mmol/L [facility] HEMATOLOGYOrdered By: SYSTEM SYSTEM on 09-13-2022 [...] 74.7 % Normal 36.0 - 75.0 % [facility] HemeAutoSS Neutrophils/Leukocyte s Auto (Bld) [Pure # fraction] 6.9 E9/L Normal 2.0 - 7.5 E9/L [facility] [facility] HEMATOLOGYOrdered By: Mansi Cortez on 09-13-2022 Erythrocyte distribution width (RBC) [Ratio] 13.5 % Normal 10.9 - 14.2 % [facility] Hematocrit (Bld) [Volume fraction] 32.0 % Low 34.0 - 46.0 % [facility] Hemoglobin (Bld) [Mass/Vol] 10.8 g/dL Low 12.0 - 16.0 gm/dL [facility] MCH (RBC) [Entitic mass] 30.7 pg Normal 27.0 - 34.0 pg [facility] MCHC (RBC) [Mass/Vol] 33.7 g/dL Normal 31.4 - 36.0 gm/dL [facility] MCV (RBC) [Entitic vol] 91.1 fL Normal 80.0 - 100.0 fL [facility] Platelet mean volume (Bld) [Entitic vol] 7.0 fL Normal 6.4 - 10.8 fL [facility] Platelets (Bld) [#/Vol] 335.0 E9/L Normal 150.0 - 500.0 E9/L [facility] RBC (Bld) [#/Vol] 3.5 E12/L Low 4.3 - 5.9 E12/L [facility] WBC corrected for nucl RBC Auto (Bld) [#/Vol] 9.3 E9/L Normal 4.0 - 11.0 E9/L [facility] CHEMISTRYOrdered By: SYSTEM SYSTEM on 09-12-2022 [...] rate/Area] mL/min/1.73 m2 Normal >=59mL/min/ 1.73 m2 [facility] Chem S GFR/1.73 sq M.predicted among non-blacks MDRD (S/P/Bld) [Vol rate/Area] mL/min/1.73 m2 Normal >=59mL/min/ 1.73 m2 [facility] Chem S Globulin (S) [Mass/Vol] 3.6 g/dL Normal 1.4 - 4.0 gm/dL [facility] Remisol Glucose [Mass/Vol] 405 mg/dL High 55 - 199 mg/dL [facility] Remisol Lactate [Mass/Vol] 1.2 mmol/L Normal 0.5 - 2.2 mmol/L [facility] Remisol Protein [Mass/Vol] 7.1 g/dL Normal 6.0 - 7.8 gm/dL [facility] Remisol Troponin I.cardiac [Mass/Vol] 5.20 pg/mL Low 10.10 - 27.10 pg/mL [facility] Remisol Urea nitrogen [Mass/Vol] 22 mg/dL High 5 - 21 mg/dL [facility] Remisol Urea nitrogen/Creatinine [Mass ratio] 24 mg/mg High 10 - 20 [facility] Remisol COAGULATIONOrdered By: Glynn Bryant on 09-12-2022 aPTT Coag (PPP) [Time] 31.1 s Normal 25.1 - 36.5 second(s) [facility] Auto Coag INR Coag (PPP) [Relative time] 1.0 {INR} Invalid Interpretation Code [facility] Auto Coag PT Coag (PPP) [Time] 11.7 s Normal 9.4 - 1 2.5 second(s) [facility] Auto Coag Glucose Glucometer (BldC) [M ass/Vol]Ordered By: Shameka Romero on 09-12-2022 Glucose [Mass/Vol] 459 mg/dL [facility] Comment on above: Random Glucose Refer ence Range is dependent on time and content of last meal. Glucose of more than 200 mg/dL in a nonstressed, ambulatory subject supports the diagnosis of Diabetes Mellitus. HEMATOLOGYOrdered By: SYSTEM SYSTEM on 09-12-2022 Basophils/100 WBC (Bld) 1.0 % Normal 0.0 - 2.0 % [facility] Basophils/Leukocytes Auto (Bld) [Pure # fraction] 0.1 E9/L Normal 0.0 - 0.2 E9/L [facility] Eosinophils/100 WBC (Bld) 1.5 % Normal 0.0 - 8.0 % [facility] Eosinophils/Leukocyte s Auto (Bld) [Pure # fraction] 0.1 E9/L Normal 0.0 - 0.5 E9/L [facility] Lymphocytes/100 WBC (Bld) 21.4 % Normal [...] E9/L [facility] No Panel InformationOrdered By: ANGPROCESSSERVER MICROBIOLOGY on 09-12-2022 Blood Culture Charcoal No growth at 3 days. Final to follow at 7 days. [facility] Blood Culture Charcoal No growth at 3 days. Final to follow at 7 days. [facility] No Panel InformationOrdered By: Shameka Romero on 09-12-2022 Bedside Glucose #[address]/rn [facility] Bedside Glucose Comment Glu2: cleaned meter [facility] CHEMISTRYOrdered By: SYSTEM SYSTEM on 08-29-2022 Albumin [...] 60 mL/min/1.73 m2 Normal >=59mL/min/ 1.73 m2 [facility] S Globulin (S) [Mass/Vol] 3.9 g/dL [...] 7.7 E9/L High 2.0 - 7.5 E9/L [facility] HEMATOLOGYOrdered By: Mansi Cortez on 08-29-2022 Erythrocyte distribution width (RBC) [Ratio] 14.1 % Normal 10.9 - 14.2 % [facility] Hematocrit (Bld) [Volume fraction] 37.6 % Normal 34.0 - 46.0 % [facility] Hemoglobin (Bld) [Mass/Vol] 12.4 g/dL Normal 12.0 - 16.0 gm/dL [facility] MCH (RBC) [Entitic mass] 30.4 pg Normal 27.0 - 34.0 pg [facility] MCHC (RBC) [Mass/Vol] 33.0 g/dL Normal 31.4 - 36.0 gm/dL [facility] MCV (RBC) [Entitic vol] 92.1 fL Normal 80.0 - 100.0 fL [facility] Platelet mean volume (Bld) [Entitic vol] 7.0 fL Normal 6.4 - 10.8 fL [facility] Platelets (Bld) [#/Vol] 446.0 E9/L Normal 150.0 - 500.0 E9/L [facility] RBC (Bld) [#/Vol] 4.1 E12/L Low 4.3 - 5.9 E12/L [facility] WBC corrected for nucl RBC Auto (Bld) [#/Vol] 10.5 E9/L Normal 4.0 - 11.0 E9/L [facility] Calcium [Mass/volume] in Ser um or PlasmaOrdered By: Jeana Martini on 08-22-2022 Calcium [Mass/Vol] 8.1 mg/dL 8.6-10.3 [facility] Carbon dioxide, total [Moles /volume] in Serum or PlasmaOrdered By: Jeana Martini on 08-22-2022 CO2 [Moles/Vol] 25.9 mmol/L 21.0-31.0 [facility] Chloride [Moles/volume] in S hellen or PlasmaOrdered By: Jeana Martini on 08-22-2022 Chloride [Moles/Vol] 111 mmol/L 98-107 [facility] Creatinine [Mass/volume] in Serum or PlasmaOrdered By: Jeana Martini on 08-22-2022 Creatinine [Mass/Vol] 1.22 mg/dL 0.60-1.20 [facility] Glucose Glucometer (BldC) [M ass/Vol]Ordered By: Jeana Martini on 08-22-2022 Glucose [Mass/Vol] 207 mg/dL [facility] Comment on above: Random Glucose Refer ence Range is dependent on time and content of last meal. Glucose of more than 200 mg/dL in a nonstressed, ambulatory subject supports the diagnosis of Diabetes Mellitus. Glucose [Mass/volume] in Ser um or PlasmaOrdered By: Jeana Martini on 08-22-2022 Glucose [Mass/Vol] 141 mg/dL 70-100 [facility] Comment on above: ADA recommended refe rence rangeRandom Glucose Reference Range is dependent on time and content of last meal. Glucose of more than 200 mg/dL in a nonstressed, ambulatory subject supports the diagnosis of Diabetes Mellitus. Magnesium [Mass/volume] in S hellen or PlasmaOrdered By: Jeana Martini on 08-22-2022 Magnesium [Mass/Vol] 1.6 mg/dL 1.9-2.7 [facility] No Panel InformationOrdered By: Jeana Martini on 08-22-2022 Bedside Glucose Comment Glu2: cleaned meter [facility] Estimated GFR (CKD-EPI) 55.771 mL/Min [facility] Creatinine Clearance (Chem 70.62 [facility] Phosphate [Mass/volume] in S hellen or PlasmaOrdered By: Jeana Martini on 08-22-2022 Phosphate [Mass/Vol] 3.8 mg/dL 3.7-7.2 [facility] Potassium [Moles/volume] in Serum or PlasmaOrdered By: Jeana Martini on 08-22-2022 Potassium [Moles/Vol] 4.0 mmol/L 3.5-5.1 [facility] Serum or plasma anion gap de terminationOrdered By: Jeana Martini on 08-22-2022 Anion gap [Moles/Vol] 10.1 mmol/L 6.0-15.0 [facility] Sodium [Moles/volume] in Ser um or PlasmaOrdered By: Jeana Martini on 08-22-2022 Sodium [Moles/Vol] 143 mmol/L 136-145 [facility] Urea nitrogen [Mass/volume] in Serum or PlasmaOrdered By: Jeana Martini on 08-22-2022 Urea nitrogen [Mass/Vol] 20 mg/dL 7-25 [facility] Basophils Auto (Bld) [#/Vol] Ordered By: Jeana Martini on 08-21-2022 Basophils (Bld) [#/Vol] 0.1 10*3/uL 0.0-0.2 [facility] Basophils/100 WBC Auto (Bld) Ordered By: Jeana Martini on 08-21-2022 Basophils/100 WBC (Bld) 0.8 % . [facility] Eosinophils Auto (Bld) [#/Vo l]Ordered By: Jeana Martini on 08-21-2022 Eosinophils (Bld) [#/Vol] 0.2 10*3/uL 0.0-0.45 [facility] Eosinophils/100 WBC Auto (Bl d)Ordered By: Jeana Martini on 08-21-2022 Eosinophils/100 WBC (Bld) 1.8 % . [facility] Erythrocyte distribution wid th Auto (RBC) [Ratio]Ordered By: Jeana Martini on 08-21-2022 Erythrocyte distribution width (RBC) [Ratio] 14.5 % 11.9-15.3 [facility] Hematocrit Auto (Bld) [Volum e fraction]Ordered By: Jeana Martini on 08-21-2022 Hematocrit (Bld) [Volume fraction] 31.3 % 34.0-46.4 [facility] Hemoglobin [Mass/volume] in BloodOrdered By: Jeana Martini on 08-21-2022 Hemoglobin (Bld) [Mass/Vol] 10.7 g/dL 11.8-15.4 [facility] Leukocytes [#/volume] correc shantel for nucleated erythrocytes in Blood by Automated counOrdered By: Jeana Martini on 08-21-2022 WBC corrected for nucl RBC Auto (Bld) [#/Vol] 8.2 10*3/uL 3.8-11.6 [facility] Lymphocytes Auto (Bld) [#/Vo l]Ordered By: Jeana Martini on 08-21-2022 Lymphocytes (Bld) [#/Vol] 1.7 10*3/uL 1.00-4.8 [facility] Lymphocytes/100 WBC Auto (Bl d)Ordered By: Jeana Martini on 08-21-2022 Lymphocytes/100 WBC (Bld) 20.6 % . [facility] MCH Auto (RBC) [Entitic mass ]Ordered By: Jeana Martini on 08-21-2022 MCH (RBC) [Entitic mass] 31.5 pg 24.7-34.3 [facility] MCHC Auto (RBC) [Mass/Vol]Or dered By: Jeana Martini on 08-21-2022 MCHC (RBC) [Mass/Vol] 34.3 g/dL 32.0-35.0 [facility] MCV Auto (RBC) [Entitic vol] Ordered By: Jeana Martini on 08-21-2022 MCV (RBC) [Entitic vol] 91.8 fL 80-100 [facility] Monocytes Auto (Bld) [#/Vol] Ordered By: Jeana Martini on 08-21-2022 Monocytes (Bld) [#/Vol] 0.6 10*3/uL 0.0-0.8 [facility] Monocytes/100 WBC Auto (Bld) Ordered By: Jeana Martini on 08-21-2022 Monocytes/100 WBC (Bld) 7.4 % . [facility] Neutrophils Auto (Bld) [#/Vo l]Ordered By: Jeana Martini on 08-21-2022 Neutrophils (Bld) [#/Vol] 5.7 10*3/uL 1.8-7.7 [facility] Neutrophils/100 WBC Auto (Bl d)Ordered By: Jeana Martini on 08-21-2022 Neutrophils/100 WBC (Bld) 69.4 % . [facility] Nucleated erythrocytes [Pres ence] in Blood by Automated countOrdered By: Jeana Martini on 08-21-2022 Nucleated RBC Auto Ql (Bld) 0.0 /100{WBC} 0-0.5 [facility] Platelet mean volume Auto (B ld) [Entitic vol]Ordered By: Jeana Martini on 08-21-2022 Platelet mean volume (Bld) [Entitic vol] 6.9 fL 6.3-10.7 [facility] Platelets Auto (Bld) [#/Vol] Ordered By: Jeana Martini on 08-21-2022 Platelets (Bld) [#/Vol] 291 10*3/uL 150-450 [facility] RBC Auto (Bld) [#/Vol]Ordere d By: Jeana Martini on 08-21-2022 RBC (Bld) [#/Vol] 3.41 10*6/uL 3.60-5.00 [facility] WBC Auto (Bld) [#/Vol]Ordere d By: Jeana Martini on 08-21-2022 WBC (Bld) [#/Vol] 8.2 10*3/uL 3.8-11.6 [facility] Activated partial thrombopla stin time (aPTT) in platelet poor plasma by coagulation aOrdered By: Jacob Farfan on 08-20-2022 aPTT Coag (PPP) [Time] 62.3 s 25.1-36.5 [facility] Alanine aminotransferase [En zymatic activity/volume] in Serum or PlasmaOrdered By: Jacob Farfan on 08-20-2022 ALT [Catalytic activity/Vol] 7 U/L 7-52 [facility] Albumin [Mass/volume] in Ser um or Plasma by Bromocresol green (BCG) dye binding methoOrdered By: Jacob Farfan on 08-20-2022 Albumin BCG dye [Mass/Vol] 3.6 g/dL 3.5-5.7 [facility] Alkaline phosphatase [Enzyma tic activity/volume] in Serum or PlasmaOrdered By: Jacob Farfan on 08-20-2022 ALP [Catalytic activity/Vol] 82 U/L 34-104 [facility] Amphetamine Screen Ql (U)Ord ered By: Jacob Farfan on 08-20-2022 Amphetamines Ql (U) Negative Negative [facility] Aspartate aminotransferase [ Enzymatic activity/volume] in Serum or PlasmaOrdered By: Jacob Farfan on 08-20-2022 AST [Catalytic activity/Vol] 9 U/L 13-39 [facility] Automated erythrocytes count in urine sediment (number/area)Ordered By: Jacob Farfan on 08-20-2022 RBC Auto (Urine sed) [#/Area] 5-9 [HPF] 0-4 [facility] Automated leukocytes count i n urine sediment (number/area)Ordered By: Jacob Farfan on 08-20-2022 WBC Auto (Urine sed) [#/Area] 10-19 [HPF] 0-4 [facility] Bacterial blood cultureOrder ed By: Jeana Martini on 08-20-2022 Bacteria identified Cx Nom (Bld) NO GROWTH 5 DAYS [facility] Barbiturates [Presence] in U rine by Screen methodOrdered By: Jacob Farfan on 08-20-2022 Barbiturates Screen Ql (U) Negative Negative [facility] Basophils Auto (Bld) [#/Vol] Ordered By: Jacob Farfan on 08-20-2022 Basophils (Bld) [#/Vol] 0.1 10*3/uL 0.0-0.2 [facility] Basophils/100 WBC Auto (Bld) Ordered By: Jacob Farfan on 08-20-2022 Basophils/100 WBC (Bld) 0.7 % . [facility] Benzodiazepines Screen Ql (U )Ordered By: Jacob Farfan on 08-20-2022 Benzodiazepines Ql (U) Negative Negative [facility] Benzoylecgonine [Presence] i n Urine by Screen methodOrdered By: Jacob Farfan on 08-20-2022 Benzoylecgonine Screen Ql (U) Negative Negative [facility] Bilirubin Test strip Ql (U)O rdered By: Jacob Farfan on 08-20-2022 Bilirubin Ql (U) Negative Negative [facility] Bilirubin.total [Mass/volume ] in Serum or PlasmaOrdered By: Jacob Farfan on 08-20-2022 Bilirubin [Mass/Vol] 0.4 mg/dL 0.3-1.0 [facility] C reactive protein [Mass/vol ume] in Serum or PlasmaOrdered By: Jeana Martini on 08-20-2022 CRP [Mass/Vol] 1.5 mg/dL 0.0-0.5 [facility] C reactive protein [Mass/vol ume] in Serum or PlasmaOrdered By: Jacob Farfan on 08-20-2022 CRP [Mass/Vol] 1.9 mg/dL 0.0-0.5 [facility] Calcium [Mass/volume] in Ser um or PlasmaOrdered By: Jacob Farfan on 08-20-2022 Calcium [Mass/Vol] 9.2 mg/dL 8.6-10.3 [facility] Cannabinoids [Presence] in U rine by Screen methodOrdered By: Jacob Farfan on 08-20-2022 Cannabinoids Screen Ql (U) Negative Negative [facility] Comment on above: These are unconfirme d results and should not be used for legal purposes. Drug Cut-Off Concentration: AMPH 1000 ng/mL DIANE 200 ng/mL ALICE 200 ng/mL COCM 300 ng/mL OP 300 ng/mL PCP 25 ng/mL THC 20 ng/mL Carbon dioxide, total [Moles /volume] in Serum or PlasmaOrdered By: Jacob Farfan on 08-20-2022 CO2 [Moles/Vol] 28.0 mmol/L 21.0-31.0 [facility] Chloride [Moles/volume] in S hellen or PlasmaOrdered By: Jacob Farfan on 08-20-2022 Chloride [Moles/Vol] 105 mmol/L 98-107 [facility] Color Auto (U)Ordered By: Lenin Farfan on 08-20-2022 Color (U) Yellow Yellow [facility] Creatinine [Mass/volume] in Serum or PlasmaOrdered By: Jacob Farfan on 08-20-2022 Creatinine [Mass/Vol] 0.93 mg/dL 0.60-1.20 [facility] Eosinophils Auto (Bld) [#/Vo l]Ordered By: Jacob Farfan on 08-20-2022 Eosinophils (Bld) [#/Vol] 0.1 10*3/uL 0.0-0.45 [facility] Eosinophils/100 WBC Auto (Bl d)Ordered By: Jacob Farfan on 08-20-2022 Eosinophils/100 WBC (Bld) 1.3 % . [facility] Erythrocyte distribution wid th Auto (RBC) [Ratio]Ordered By: Jacob Farfan on 08-20-2022 Erythrocyte distribution width (RBC) [Ratio] 14.5 % 11.9-15.3 [facility] Erythrocyte sedimentation ra te by Photometric methodOrdered By: Jacob Farfan on 08-20-2022 ESR Photometric method (d) [Velocity] 47 mm/hr 0-19 [facility] Globulin Calc (S) [Mass/Vol] Ordered By: Jacob Farfan on 08-20-2022 Globulin (S) [Mass/Vol] 2.8 g/dL [facility] Glucose Glucometer (BldC) [M ass/Vol]Ordered By: Jacob Farfan on 08-20-2022 Glucose [Mass/Vol] 226 mg/dL [facility] Comment on above: Random Glucose Refer ence Range is dependent on time and content of last meal. Glucose of more than 200 mg/dL in a nonstressed, ambulatory subject supports the diagnosis of Diabetes Mellitus. Glucose [Mass/volume] in Ser um or PlasmaOrdered By: Jacob Farfan on 08-20-2022 Glucose [Mass/Vol] 234 mg/dL 70-100 [facility] Comment on above: ADA recommended refe rence rangeRandom Glucose Reference Range is dependent on time and content of last meal. Glucose of more than 200 mg/dL in a nonstressed, ambulatory subject supports the diagnosis of Diabetes Mellitus. Glucose mean value [Mass/vol ume] in Blood Estimated from glycated hemoglobinOrdered By: Ezekiel Mathew on 08-20-2022 Average glucose Estimated from glycated hemoglobin (Bld) [Mass/Vol] 220 mg/dL [facility] Hematocrit Auto (Bld) [Volum e fraction]Ordered By: Jacob Farfan on 08-20-2022 Hematocrit (Bld) [Volume fraction] 34.4 % 34.0-46.4 [facility] Hemoglobin A1c percentageOrd ered By: Ezekiel Mathew on 08-20-2022 HbA1c (Bld) [Mass fraction] 9.3 % 4.3-5.6 [facility] Comment on above: Increased risk for d iabetes: 5.7 - 6.4diabetes: >6.4glycemic control for adults with diabetes: <7.0 Hemoglobin [Mass/volume] in BloodOrdered By: Jacob Farfan on 08-20-2022 Hemoglobin (Bld) [Mass/Vol] 11.6 g/dL 11.8-15.4 [facility] Ketones Auto test strip (U) [Mass/Vol]Ordered By: Jacob Farfan on 08-20-2022 Ketones (U) [Mass/Vol] Negative Negative [facility] Laboratory - Chemistry and C hemistry - challengeOrdered By: Jacob Farfan on 08-20-2022 GFR/1.73 sq M.predicted MDRD (S/P/Bld) [Vol rate/Area] mL/min/{1.73_m2} [facility] Laboratory - CoagulationOrde red By: Jacob Farfan on 08-20-2022 PT Coag (PPP) [Time] 12.2 s 9.0-12.9 [facility] Laboratory - UrinalysisOrder ed By: Jacob Farfan on 08-20-2022 Hyaline casts LM Ql (Urine sed) 0-8 [LPF] 0-8 [facility] Leukocytes [#/volume] correc shantel for nucleated erythrocytes in Blood by Automated counOrdered By: Jacob Farfan on 08-20-2022 WBC corrected for nucl RBC Auto (Bld) [#/Vol] 8.5 10*3/uL 3.8-11.6 [facility] Lymphocytes Auto (Bld) [#/Vo l]Ordered By: Jacob Farfan on 08-20-2022 Lymphocytes (Bld) [#/Vol] 2.3 10*3/uL 1.00-4.8 [facility] Lymphocytes/100 WBC Auto (Bl d)Ordered By: Jacob Farfan on 08-20-2022 Lymphocytes/100 WBC (Bld) 27.3 % . [facility] MCH Auto (RBC) [Entitic mass ]Ordered By: Jacob Farfan on 08-20-2022 MCH (RBC) [Entitic mass] 30.8 pg 24.7-34.3 [facility] MCHC Auto (RBC) [Mass/Vol]Or dered By: Jacob Farfan on 08-20-2022 MCHC (RBC) [Mass/Vol] 33.8 g/dL 32.0-35.0 [facility] MCV Auto (RBC) [Entitic vol] Ordered By: Jacob Farfan on 08-20-2022 MCV (RBC) [Entitic vol] 91.2 fL 80-100 [facility] Magnesium [Mass/volume] in S hellen or PlasmaOrdered By: Jacob Farfan on 08-20-2022 Magnesium [Mass/Vol] 1.2 mg/dL 1.9-2.7 [facility] Monocyte distribution width [Entitic volume] in Blood by AutomatedOrdered By: Jacob Farfan on 08-20-2022 Monocyte distribution width Auto (Bld) [Entitic vol] 20.72 % 0.00-20.00 [facility] Comment on above: For adults in ED, MD W > 20.0 may be associated with a higher risk of sepsis during the first 12 hrs of hospital admission Monocytes Auto (Bld) [#/Vol] Ordered By: Jacob Farfan on 08-20-2022 Monocytes (Bld) [#/Vol] 0.5 10*3/uL 0.0-0.8 [facility] Monocytes/100 WBC Auto (Bld) Ordered By: Jacob Farfan on 08-20-2022 Monocytes/100 WBC (Bld) 6.0 % . [facility] Neutrophils Auto (Bld) [#/Vo l]Ordered By: Jacob Farfan on 08-20-2022 Neutrophils (Bld) [#/Vol] 5.5 10*3/uL 1.8-7.7 [facility] Neutrophils/100 WBC Auto (Bl d)Ordered By: Jacob Farfan on 08-20-2022 Neutrophils/100 WBC (Bld) 64.7 % . [facility] Nitrite Test strip Ql (U)Ord ered By: Jacob Farfan on 08-20-2022 Nitrite Ql (U) Negative Negative [facility] No Panel InformationOrdered By: Jeana Martini on 08-20-2022 Bedside Glucose #2 Comment Cleaned meter [facility] No Panel InformationOrdered By: Jacob Farfan on 08-20-2022 Pharmacy Creatinine Clearance (Chem 91.29 [facility] Nucleated erythrocytes [Pres ence] in Blood by Automated countOrdered By: Jacob Farfan on 08-20-2022 Nucleated RBC Auto Ql (Bld) 0.0 /100{WBC} 0-0.5 [facility] Opiates [Presence] in Urine by Screen methodOrdered By: Jacob Farfan on 08-20-2022 Opiates Screen Ql (U) Negative Negative [facility] Phencyclidine Screen Ql (U)O rdered By: Jacob Farfan on 08-20-2022 Phencyclidine Ql (U) Negative Negative [facility] Platelet mean volume Auto (B ld) [Entitic vol]Ordered By: Jacob Farfan on 08-20-2022 Platelet mean volume (Bld) [Entitic vol] 6.9 fL 6.3-10.7 [facility] Platelet poor plasma interna tional normalized ratio (INR) by coagulation assay (relatOrdered By: Jacob Farfan on 08-20-2022 INR Coag (PPP) [Relative time] 1.1 {INR} [facility] Comment on above: INR Therapeutic Rang e [...] Platelets Auto (Bld) [#/Vol] Ordered By: Jacob Farfan on 08-20-2022 Platelets (Bld) [#/Vol] 326 10*3/uL 150-450 [facility] Potassium [Moles/volume] in Serum or PlasmaOrdered By: Jacob Farfan on 08-20-2022 Potassium [Moles/Vol] 3.3 mmol/L 3.5-5.1 [facility] Protein Auto test strip (U) [Mass/Vol]Ordered By: Jacob Farfan on 08-20-2022 Protein (U) [Mass/Vol] 100 mg/dL Negative [facility] Protein [Mass/volume] in Ser um or PlasmaOrdered By: Jacob Farfan on 08-20-2022 Protein [Mass/Vol] 6.4 g/dL 6.4-8.9 [facility] RBC Auto (Bld) [#/Vol]Ordere d By: Jacob Farfan on 08-20-2022 RBC (Bld) [#/Vol] 3.77 10*6/uL 3.60-5.00 [facility] Serum or plasma albumin/glob ulin mass ratioOrdered By: Jacob Farfan on 08-20-2022 Albumin/Globulin [Mass ratio] 1.3 {ratio} [facility] Serum or plasma anion gap de terminationOrdered By: Jacob Farfan on 08-20-2022 Anion gap [Moles/Vol] 11.3 mmol/L 6.0-15.0 [facility] Sodium [Moles/volume] in Ser um or PlasmaOrdered By: Jacob Farfan on 08-20-2022 Sodium [Moles/Vol] 141 mmol/L 136-145 [facility] Specific gravity Auto test s trip (U) [Rel density]Ordered By: Jacob Farfan on 08-20-2022 Specific gravity (U) [Rel density] 1.017 1.001-1.030 [facility] Squamous epithelial cells de tection in urine sediment by light microscopyOrdered By: Jacob Farfan on 08-20-2022 Epithelial cells.squamous LM Ql (Urine sed) 3-4 [HPF] 0-2 [facility] Troponin I.cardiac [Mass/vol ume] in Serum or Plasma by Detection limit <= 0.01 ng/Ordered By: Jacob Farfan on 08-20-2022 Troponin I.cardiac DL <= 0.01 ng/mL [Mass/Vol] 8.2 pg/mL 0.0-15.0 [facility] Urea nitrogen [Mass/volume] in Serum or PlasmaOrdered By: Jacob Farfan on 08-20-2022 Urea nitrogen [Mass/Vol] 15 mg/dL 7-25 [facility] Urine bacteria detection by automated methodOrdered By: Jacob Farfan on 08-20-2022 Bacteria Auto Ql (U) 1+ None Seen [facility] Urine clarity by refractomet ry automatedOrdered By: Jacob Farfan on 08-20-2022 Clarity Refractometry automated (U) Clear Clear [facility] Urine glucose measurement by automated test strip (mass/volume)Ordered By: Jacob Farfan on 08-20-2022 Glucose Auto test strip (U) [Mass/Vol] >=1000 mg/dL Normal [facility] Urine hemoglobin detection b y automated test stripOrdered By: Jacob Farfan on 08-20-2022 Hemoglobin Auto test strip Ql (U) Trace Negative [facility] Urine leukocyte esterase det ection by automated test stripOrdered By: Jacob Farfan on 08-20-2022 Leukocyte esterase Auto test strip Ql (U) Negative Negative [facility] Urobilinogen Auto test strip (U) [Mass/Vol]Ordered By: Jacob Farfan on 08-20-2022 Urobilinogen (U) [Mass/Vol] Normal mg/dL Normal [facility] Vitamin D+Metabolites [Mass/ volume] in Serum or PlasmaOrdered By: Ezekiel Mathew on 08-20-2022 Vitamin D+Metabolites [Mass/Vol] < 7.0 ng/mL 30-100 [facility] Comment on above: VITAMIN D STATUS 25( [place])VITAMIN D RANGE (ng/mL) Deficient <20 Insufficient 20 to <30Sufficient 30 to 100Reference: Bernie MF,Hina ARELLANO, Tran THIBODEAUX, et al. Evaluation,treatment, and prevention of vitamin D deficiency; an Endocrine Society clinical practice guideline. JCEM. 2010; 96(7):1911-30. WBC Auto (Bld) [#/Vol]Ordere d By: Jacob Farfan on 08-20-2022 WBC (Bld) [#/Vol] 8.5 10*3/uL 3.8-11.6 [facility] pH Auto test strip (U)Ordere d By: Jacob Farfan on 08-20-2022 pH (U) 6.5 [pH] 5.0-9.0 [facility] CHEMISTRYOrdered By: SYSTEM SYSTEM on 08-19-2022 Albumin [Mass/Vol] 3.6 g/dL Normal 3.3 - 5.0 gm/dL [facility] [...] m2 [facility] S Globulin (S) [Mass/Vol] 3.3 g/dL Normal 1.4 - 4.0 gm/dL [facility] Remisol Glucose [Mass/Vol] 204 mg/dL High 55 - 199 mg/dL [facility] Remisol Lactate [Mass/Vol] 1.2 mmol/L Normal 0.5 - 2.2 mmol/L [facility] Remisol Magnesium [Mass/Vol] 1.3 mg/dL Normal 1.3 - 2 .4 mg/dL [facility] Rem[facility] Potassium [Moles/Vol] 3.1 mmol/L Low 3.5 - 5.3 mmol/L [facility] Remisol Protein [Mass/Vol] 6.9 g/dL Normal 6.0 [...] 0.7 % Normal 0.0 - 8.0 % [facility] HemeAutoSS Eosinophils/Leukocyte s Auto (Bld) [Pure # [...] 9.2 E9/L Normal 4.0 - 11.0 E9/L [facility] HemeAutoSS CBC AUTO DIFFon 08-06-2022 BASO # 0.0 103/ul Normal 0.0-0.1 [facility] Comment on above: Performed By: #### C BC ####[facility] Ev[address]om[address] [place] [address]Dr. Devin Suresh Basophils/100 WBC (Bld) 0.5 % Normal 0.2-2.0 [facility] Comment on above: Performed By: #### C BC ####[facility] R[address]akqroh[address] [place], [place] [address]Dr. Devin Suresh EO # 0.1 103/ul Normal 0.0-0.7 [facility] Comment on above: Performed By: #### C BC ####[facility] Ijxshguhgj[address] [place], [place] [address]Dr. Devin Suresh Eosinophils/100 WBC (Bld) 1.6 % Normal 0.9-7.0 [facility] Comment on above: Performed By: #### C BC ####[facility] Bzyjgelpap[address] [place], [place] [address]Dr. Devin Suresh Erythrocyte distribution width (RBC) [Ratio] 13.3 % Normal 11.0-15.0 [facility] Comment on above: Performed By: #### C BC ####[facility] Tkzvngempu[address] [place], [place] [address]Dr. Devin Suresh Hematocrit (Bld) [Volume fraction] 30.1 % Critically low 36.0-48.0 [facility] Comment on above: Performed By: #### C BC ####[facility] Zethutefih[address] [place], [place] [address]Dr. Devin Suresh Hemoglobin (Bld) [Mass/Vol] 10.6 g/dL Critically low 12.0-16.0 [facility] Comment on above: Performed By: #### C BC ####[facility] Cbkkuoxybv6320[address] [place], [place] [address]Dr. Devin Suresh IG # 0.04 10e3/ul Critically high 0.00-0.03 [facility] Comment on above: Performed By: #### C BC ####[facility] Hmgmbnuhjg[address] [place] [id number] Devin Suresh IG % 0.6 % Critically high 0.0-0.5 [facility] Comment on above: Performed By: #### C BC ####[facility] Payrupwenr[address] [place] [address]DrMaris Devin Kerwin LYMPH # 2.3 103/ul Normal 1.2-3.8 [facility] Comment on above: Performed By: #### C BC ####[facility] Vxbvknawlk[address] [place], [place] [address]DrMaris Devin Kerwin Lymphocytes/100 WBC (Bld) 36.0 % Normal 20.5-60.0 [facility] Comment on above: Performed By: #### C BC ####[facility] Fzslpjxevh[address] [place], [place] [address]DrMaris Devin Kerwin MANUAL DIFF REQ NO Normal [facility] Comment on above: Performed By: #### C BC ####[facility] Atvqcxglwa9[address] [place], [place] [address]DrMaris Devin Suresh MCH (RBC) [Entitic mass] 31.1 pg Normal 26.7-34.0 [facility] Comment on above: Performed By: #### C BC ####[facility] [address]jwuhffafe[address] [place] [id number] Devin Kerwin MCHC (RBC) [Mass/Vol] 35.2 g/dL Normal 29.9-35.2 [facility] Comment on above: Performed By: #### C BC ####[facility] Eywemqwj[address] [place], [place] [id number] Devin Kerwin MCV (RBC) [Entitic vol] 88.3 fL Normal 81.0-99.0 [facility] Comment on above: Performed By: #### C BC ####[facility] Jsztqmzekj[address] [place], [place] [address]DrMaris Tishemily Suresh MONO # 0.4 103/ul Normal 0.3-0.8 [facility] Comment on above: Performed By: #### C BC ####[facility] Vdgqehjluy[address] [place] [address]Dr. Devin Suresh Monocytes/100 WBC (Bld) 6.1 % Normal 1.7-12.0 [facility] Comment on above: Performed By: #### C BC ####[facility] Zglmfkfjrt[address] [place] [address]Dr. Devin Suresh NEUT # 3.5 103/ul Normal 1.4-6.5 [facility] Comment on above: Performed By: #### C BC ####[facility] Mhggsaokck[address] [place] [address]Dr. Devin Suresh Neutrophils/100 WBC (Bld) 55.2 % Normal 43.0-75.0 [facility] Comment on above: Performed By: #### C BC ####[facility] Ubkwiitwdp[address] [place] [address]Dr. Devin Suresh Platelet mean volume (Bld) [Entitic vol] 8.3 fL Critically low 9.5-13.5 [facility] Comment on above: Performed By: #### C BC ####[facility] Kedqvmeiiz[address] [place] [address]Dr. Devin Suresh PLT 244 103/ul Normal 150-450 [facility] Comment on above: Performed By: #### C BC ####[facility] Jlgojbmwwn35[address] [place] [address]Dr. Devin Suresh RBC 3.41 106/ul Critically low 4.20-5.40 [facility] Comment on above: Performed By: #### C BC ####[facility] Ulengaazwe[address] [place] [id number]. Deivn Suresh WBC 6.3 103/ul Normal 4.0-11.0 [facility] Comment on above: Performed By: #### C BC ####[facility] Mjwpqpkntf3299 [place] [id number]. Devin Suresh POINT OF CARE GLUCOSEon 07-23 Glucose [Mass/Vol] 209 mg/dL Critically high 74-106 T [facility] Comment on above: Performed By: #### P OCGLUC ####[facility] Zcwlkikpga[address] [place], [place] [address]Dr. Devin Suresh PROF 14(COMP METB)on 023 Albumin [Mass/Vol] 3.2 g/dL Critically low 3.4-5.0 [facility] Comment on above: Performed By: #### C MP ####[facility] Pgxlpsytlf[address] [place], [place] [address]Dr. Devin Suresh Albumin/Globulin [Mass ratio] 1.1 {ratio} Normal [facility] Comment on above: Performed By: #### C MP ####[facility] Uuzdaaxufr8[address] [place], [place] [address]Dr. Devin Suresh ALP [Catalytic activity/Vol] 85 U/L Normal 46-116 [facility] Comment on above: Performed By: #### C MP ####[facility] Vnnolrfuzb5711[address] [place], [place] [address]Dr. Devin Suresh ALT [Catalytic activity/Vol] 14 U/L Normal 14-59 [facility] Comment on above: Performed By: #### C MP ####[facility] Fiyrcrlvqj4430[address] [place], [place] [address]Dr. Devin Suresh Anion gap [Moles/Vol] 12.7 mmol/L Normal [facility] Comment on above: Performed By: #### C MP ####[facility] Wzazrhxhst7[address] [place], [place] [address]Dr. Devin Suresh AST [Catalytic activity/Vol] 14 U/L Critically low 15-37 [facility] Comment on above: Performed By: #### C MP ####[facility] Nwzrhkwhig687[address] [place], [place] [address]Dr. Devin Suresh Bilirubin [Mass/Vol] 0.4 mg/dL Normal 0.2-1.0 [facility] Comment on above: Performed By: #### C MP ####[facility] Nbuzvkkldi37[address] [place], [place] [address]Dr. Devin Suresh Calcium [Mass/Vol] 7.9 mg/dL Critically low 8.5-10.1 Th [facility] Comment on above: Performed By: #### C MP ####[facility] Hgwkyqlwie[address] [place] [address]Dr. Devin Suresh Chloride [Moles/Vol] 106 mmol/L Normal 98-107 [facility] Comment on above: Performed By: #### C MP ####[facility] Lneccaxfay7[address] [place], [place] [address]Dr. Devin Suresh CO2 [Moles/Vol] 23.5 mmol/L Normal 21.0-32.0 [facility] Comment on above: Performed By: #### C MP ####[facility] Gmrfzyiqzr17[address] [place], [place] [address]Dr. Devin Suresh Creatinine [Mass/Vol] 0.88 mg/dL Normal 0.55-1.02 [facility] Comment on above: Performed By: #### C MP ####[facility] Oxiiyigxbc044[address] [place], [place] [address]Dr. Devin Suresh EGFR-AF LUXEMBOURGER >60 Normal >=60 [facility] Comment on above: Performed By: #### C MP ####[facility] Bzvrccfpoo[address] [place], [place] [address]Dr. Devin Suresh EGFR-NON AF LUXEMBOURGER >60 Normal >=60 [facility] Comment on above: Performed By: #### C MP ####[facility] Optapwsasn[address] [place], [place] [address]Dr. Devin Suresh Globulin (S) [Mass/Vol] 2.8 g/dL Normal [facility] Comment on above: Performed By: #### C MP ####[facility] Gcslmcrdtr[address] [place] [address]Dr. Devin Suresh Glucose [Mass/Vol] 165 mg/dL Critically high 74-106 T [facility] Comment on above: Performed By: #### C MP ####[facility] Pyavnldnlu6[address] [place] [address]Dr. Tishemily Kerwin Potassium [Moles/Vol] 3.2 mmol/L Critically low 3.5-5.1 [facility] Comment on above: Performed By: #### C MP ####[facility] Qnwfrumjxp3686 [place] [address]Dr. Devin Suresh Protein [Mass/Vol] 6.0 g/dL Critically low 6.4-8.2 Th e [facility] Comment on above: Performed By: #### C MP ####[facility] Zpibjaifvc[address] [place], [place] [address]Dr. Tishemily Suresh Sodium [Moles/Vol] 139 mmol/L Normal 136-145 [facility] Comment on above: Performed By: #### C MP ####[facility] Htnvorqhqb[address] [place], [place] [address]Dr. Devin Kerwin Urea nitrogen [Mass/Vol] 5.0 mg/dL Critically low 7.0-18.0 [facility] Comment on above: Performed By: #### C MP ####[facility] Arrsdmvbgj1156[address] [place], [place] [address]Dr. Devin Kerwin Urea nitrogen/Creatinine [Mass ratio] 5.6 mg/mg Normal [facility] Comment on above: Performed By: #### C MP ####[facility] Ixrrbcxvno14[address] [place], [place] [address]Dr. Devin Kerwin CBC AUTO DIFFon 08-05-2022 BASO # 0.0 103/ul Normal 0.0-0.1 [facility] Comment on above: Performed By: #### C BC ####[facility] Vtbihujhze26[address] [place], [place] [address]Dr. Devin Suresh Basophils/100 WBC (Bld) 0.3 % Normal 0.2-2.0 [facility] Comment on above: Performed By: #### C BC ####[facility] Xtiwnudexs[address] [place], [place] [address]Dr. Devin Suresh EO # 0.1 103/ul Normal 0.0-0.7 [facility] Comment on above: Performed By: #### C BC ####[facility] Vqckyfppif[address] [place], [place] [address]Dr. Devin Suresh Eosinophils/100 WBC (Bld) 1.7 % Normal 0.9-7.0 [facility] Comment on above: Performed By: #### C BC ####[facility] Lmhnnnwmxa[address]16[address] [place], [place] [address]Dr. Devin Suresh Erythrocyte distribution width (RBC) [Ratio] 13.4 % Normal 11.0-15.0 [facility] Comment on above: Performed By: #### C BC ####[facility] Tzaqknngru7360[address] [place], [place] [address]Dr. Devin Suresh Hematocrit (Bld) [Volume fraction] 28.6 % Critically low 36.0-48.0 [facility] Comment on above: Performed By: #### C BC ####[facility] Zuwqnrlkjp7550[address] [place], [place] [address]Dr. Devin Suresh Hemoglobin (Bld) [Mass/Vol] 9.8 g/dL Critically low 12.0-16.0 [facility] Comment on above: Performed By: #### C BC ####[facility] Ugoycgjxkt18[address] [place], [place] [address]Dr. Devin Suresh IG # 0.04 10e3/ul Critically high 0.00-0.03 [facility] Comment on above: Performed By: #### C BC ####[facility] Ooiwogyfxp[address] [place], [place] [address]Dr. Devin Suresh IG % 0.7 % Critically high 0.0-0.5 [facility] Comment on above: Performed By: #### C BC ####[facility] Wjzfoelxvk7925[address] [place], [place] [address]DrMaris Suresh LYMPH # 1.8 103/ul Normal 1.2-3.8 [facility] Comment on above: Performed By: #### C BC ####[facility] Ehqhsgepot399[address] [place], [place] [address]DrMaris Suresh Lymphocytes/100 WBC (Bld) 30.9 % Normal 20.5-60.0 [facility] Comment on above: Performed By: #### C BC ####[facility] Ktotgpcclp[address] [place], [place] [address]DrMaris Suresh MANUAL DIFF REQ NO Normal [facility] Comment on above: Performed By: #### C BC ####[facility] Ggrkyaqbxf3308 [place] [address]Dr. Devin Suresh MCH (RBC) [Entitic mass] 30.0 pg Normal 26.7-34.0 [facility] Comment on above: Performed By: #### C BC ####[facility] Hcvcelltcz9207 [place] [address]Dr. Devin Suresh MCHC (RBC) [Mass/Vol] 34.3 g/dL Normal 29.9-35.2 [facility] Comment on above: Performed By: #### C BC ####[facility] Zwksrlzhbs3[address] [place], [place] [address]DrMaris Suresh MCV (RBC) [Entitic vol] 87.5 fL Normal 81.0-99.0 [facility] Comment on above: Performed By: #### C BC ####[facility] Gdpjaktzuy05[address] [place], [place] [address]DrMaris Suresh MONO # 0.3 103/ul Normal 0.3-0.8 [facility] Comment on above: Performed By: #### C BC ####[facility] Klivlodwti79[address] [place], [place] [address]DrMaris Suresh Monocytes/100 WBC (Bld) 4.3 % Normal 1.7-12.0 [facility] Comment on above: Performed By: #### C BC ####[facility] Aovblutcph10[address] [place], [place] [address]DrMaris Suresh NEUT # 3.6 103/ul Normal 1.4-6.5 [facility] Comment on above: Performed By: #### C BC ####[facility] Eaydulszpt[address] [place], [place] [address]DrMaris Suresh Neutrophils/100 WBC (Bld) 62.1 % Normal 43.0-75.0 [facility] Comment on above: Performed By: #### C BC ####[facility] Ihkdmcprpz[address] [place], [place] [address]DrMaris Suresh Platelet mean volume (Bld) [Entitic vol] 8.5 fL Critically low 9.5-13.5 [facility] Comment on above: Performed By: #### C BC ####[facility] Kpqkuavfjz08[address] [place] [address]Dr. Devin Suresh PLT 211 103/ul Normal 150-450 [facility] Comment on above: Performed By: #### C BC ####[facility] Twrjjrqpyv[address] [place] [address]Dr. Devin Suresh RBC 3.27 106/ul Critically low 4.20-5.40 [facility] Comment on above: Performed By: #### C BC ####[facility] Nodbruhjxy85[address] [place], [place] [address]Dr. Devin Suresh WBC 5.9 103/ul Normal 4.0-11.0 [facility] Comment on above: Performed By: #### C BC ####[facility] Oyakiujxal2[address] [place], [place] [address]Dr. Devin Suresh CBC W MANUAL DIFFon 08-06-19 23 ANISOCYTOSIS 2+ Normal [facility] Comment on above: Performed By: #### C BCMAN ####[facility] Nvnnoixvhk[address] [place], [place] [address]Dr. Devin Suresh ATYPICAL LYMPH # Normal [facility] Comment on above: Performed By: #### C BCMAN ####[facility] Azwplvwobb004[address] [place], [place] [address]Dr. Devin Kerwin ATYPICAL LYMPH % Normal [facility] Comment on above: Performed By: #### C BCMAN ####[facility] Iiudkynmvf[address] [place], [place] [address]Dr. Devin Suresh BAND # 0.1 103/ul Normal 0.0-0.3 [facility] Comment on above: Performed By: #### C BCMAN ####[facility] Ttblsanuii3424[address] [place], [place] [address]Dr. Devin Suresh BAND % 1 % Normal 0-5 [facility] Comment on above: Performed By: #### C BCMAN ####[facility] Fgoswafkwp0120 [place] [phone]. Devin Suresh BASOM # 0.10 103/ul Normal 0.00-0.10 [facility] Comment on above: Performed By: #### C BCMAN ####[facility] Rlwxdhnwfp4034 [place] [id number]. Devin Suresh BASOM % 2.0 % Normal 0.2-2.0 [facility] Comment on above: Performed By: #### C BCMAN ####[facility] Bcmxozsmfz95[address] [place] [phone]. Devin Suresh BLAST # Normal [facility] Comment on above: Performed By: #### C BCMAN ####[facility] Pmnqlsdswk[address] [place] [address]Dr. Devin Suresh BLAST % Normal [facility] Comment on above: Performed By: #### C BCMARLEE ####[facility] Inblptmwym23[address] [place], [place] [address]Dr. Devin Suresh CORRECTED WBC Normal 4.0-11.0 [facility] Comment on above: Performed By: #### C BCMAN ####[facility] Iaydzyiwom[address] [place], [place] [address]Dr. Devin Suresh EOS # 0.40 103/ul Normal 0.00-0.70 [facility] Comment on above: Performed By: #### C BCMAN ####[facility] Ocbovblrmq[address] [place] [address]Dr. Devin Suresh EOS% 8.0 % Critically high 0.9-7.0 [facility] Comment on above: Performed By: #### C BCMAN ####[facility] Iddtkyiyco4[address] [place] [phone]. Devin Suresh HCT 29.5 % Critically low 36.0-48.0 [facility] Comment on above: Performed By: #### C BCMAN ####[facility] Tmnbsuytlk6249 [place] [phone]. Devin Suresh HGB 10.0 g/dl Critically low 12.0-16.0 [facility] Comment on above: Performed By: #### Isabell DELGADILLO ####[facility] Iosdmtzosw9080 [place] [phone]. Devin Suresh LYMPHM # 0.35 103/ul Critically low 1.20-3.80 [facility] Comment on above: Performed By: #### C ELIE ####[facility] Fnvlwvucjk7340 [place] [phone]. Devin Suresh LYMPHM% 7.0 % Critically low 20.5-60.0 [facility] Comment on above: Performed By: #### C ELIE ####[facility] Gpvwsbqvru4873 [place] [phone]. Devin Suresh MCH 30.0 pg Normal 26.7-34.0 [facility] Comment on above: Performed By: #### C ELIE ####[facility] Akzquxgcer[address] [place] [address]Dr. Devin Suresh MCHC 33.9 g/dl Normal 29.9-35.2 [facility] Comment on above: Performed By: #### Isabell DELGADILLO ####[facility] Qvpskkqeuo7266 [place] [phone]. Devin Suresh MCV 88.6 fL Normal 81.0-99.0 [facility] Comment on above: Performed By: #### Isabell DELGADILLO ####[facility] Bhmertuiuz0491 [place] [phone]. Devin Suresh METAMYELOCYTE # 0.1 103/ul Normal [facility] Comment on above: Performed By: #### Isabell DELGADILLO ####[facility] Ucbygamrkb4445 [place] [phone]. Devin Suresh METAMYELOCYTE % 2 % Normal [facility] Comment on above: Performed By: #### Isabell DELGADILLO ####[facility] Pvmhkwjmwl[address] [place], [place] [address]Dr. Devin Suresh MONOM# 0.05 103/ul Critically low 0.30-0.80 [facility] Comment on above: Performed By: #### Isabell DELGADILLO ####[facility] X[address] [place] [address]Ge. Devin Suresh MONOM% 1.0 % Critically low 1.7-12.0 [facility] Comment on above: Performed By: #### Isabell DELGADILLO ####[facility] Ccicujbads0039 [place] [phone]. Devin Suresh MPV 8.5 fL Critically low 9.5-13.5 [facility] Comment on above: Performed By: #### C ELIE ####[facility] Bddahodggy6869 [place] [phone]. Devin Suresh MYELOCYTE # Normal [facility] Comment on above: Performed By: #### Isabell DELGADILLO ####[facility] Wagtzdssqj[address] [place], [place] [address]Dr. Devin Suresh MYELOCYTE % Normal [facility] Comment on above: Performed By: #### Isabell DELGADILLO ####[facility] Zitempibtw[address] [place] [address]Dr. Devin Suresh NRBC Normal [facility] Comment on above: Performed By: #### C ELIE ####[facility] Fyhjzzzksk0196 [place] [phone]. Devin Suresh PLT 207 103/ul Normal 150-450 [facility] Comment on above: Performed By: #### C ELIE ####[facility] Kiiruqukhc9522 [place] [phone]. Devin Suresh POIKILOCYTOSIS 2+ Normal [facility] Comment on above: Performed By: #### C ELIE ####[facility] [facility] Hcjpjqjzcm3623 [place] [id number]. Devin Suresh RBC 3.33 106/ul Critically low 4.20-5.40 [facility] Comment on above: Performed By: #### C ELIE ####[facility] Fhagzrhvuq2602 [place] [phone]. Devin Suresh RDW 13.3 % Normal 11.0-15.0 [facility] Comment on above: Performed By: #### Isabell DELGADILLO ####[facility] Ztbjgyhfmw4[address] [place] [address]Dr. Devin Suresh SEG # 3.95 103/ul Normal 1.40-6.50 [facility] Comment on above: Performed By: #### C BCMAN ####[facility] Tyekqinfoe57[address] [place] [address]Dr. Devin Suresh SEG % 79.0 % Critically high 43.0-75.0 [facility] Comment on above: Performed By: #### C BCMAN ####[facility] Ekdzbiyfwr1689 [place] [address]Dr. Devin Suresh WBC 5.0 103/ul Normal 4.0-11.0 [facility] Comment on above: Performed By: #### C ELIE ####[facility] Qfldlfuyvb4025 [place] [address]Dr. Devin Suresh ECHOCARDIO M/2D COMPLETEon 0 08-05-2022 ECHOCARDIO M/2D COMPLETE Normal [facility] POINT OF CARE GLUCOSEon 07-23 Glucose [Mass/Vol] 151 mg/dL Critically high -106 [facility] Comment on above: Performed By: #### P OCGLUC ####[facility] Ospsiajmka5135 [place] [address]Dr. Devin Suresh Glucose [Mass/Vol] 188 mg/dL Critically high [address] [place] [address] Comment on above: Performed By: #### P OCGLUC ####[facility] Ecmmvmjoaw9002 [place] [address]Dr. Devin Suresh Glucose [Mass/Vol] 243 mg/dL Critically high -106 [facility] Comment on above: Performed By: #### P OCGLUC ####[facility] Samcffmzho6114 [place] [address]Dr. Devin Suresh Glucose [Mass/Vol] 259 mg/dL Critically high [facility]106 [facility] Comment on above: Performed By: #### P OCGLUC ####[facility] Rztjqvfqyh1477 [place] [address]Dr. Tishemily Suresh PROF 14(COMP METB)on 023 Albumin [Mass/Vol] 3.1 g/dL Critically low 3.4-5.0 [facility] Comment on above: Performed By: #### C MP ####[facility] Glrispnnpo6988 [place] [address]Dr. Devin Suresh Albumin/Globulin [Mass ratio] 1.1 {ratio} Normal [facility] Comment on above: Performed By: #### C MP ####[facility] Xtihhdwgbd1443 [place] [address]Dr. Devin Suresh ALP [Catalytic activity/Vol] 86 U/L Normal 46-116 [facility] Comment on above: Performed By: #### C MP ####[facility] Auobsefyqx[address] [place], [place] [address]Dr. Devin Suresh ALT [Catalytic activity/Vol] 12 U/L Critically low 14-59 [facility] Comment on above: Performed By: #### C MP ####[facility] Orqxawulxd[address] [place], [place] [address]Dr. Devin Suresh Anion gap [Moles/Vol] 13.2 mmol/L Normal [facility] Comment on above: Performed By: #### C MP ####[facility] Hhzxvmqwqa[address] [place], [place] [address]Dr. Devin Suresh AST [Catalytic activity/Vol] 13 U/L Critically low 15-37 [facility] Comment on above: Performed By: #### C MP ####[facility] Ekpjdlqjkf[address] [place], [place] [address]Dr. Devin Suresh Bilirubin [Mass/Vol] 0.4 mg/dL Normal 0.2-1.0 [facility] Comment on above: Performed By: #### C MP ####[facility] Yctqmzmgzr[address] [place], [place] [address]Dr. Devin Suresh Calcium [Mass/Vol] 8.0 mg/dL Critically low 8.5-10.1 [facility] Comment on above: Performed By: #### C MP ####[facility] Gnoixgfjcr157[address] [place], [place] [address]Dr. Devin Suresh Chloride [Moles/Vol] 108 mmol/L Critically high 98-107 [facility] Comment on above: Performed By: #### C MP ####[facility] Lwgaouridx8768 [place] [address]Dr. Devin Suresh CO2 [Moles/Vol] 21.3 mmol/L Normal 21.0-32.0 [facility] Comment on above: Performed By: #### C MP ####[facility] Uwvyrhfwmt4037 [place] [phone]. Devin Suresh Creatinine [Mass/Vol] 0.76 mg/dL Normal 0.55-1.02 [facility] Comment on above: Performed By: #### C MP ####[facility] Myqqrrqosw3495 [place] [address]Dr. Devin Suresh EGFR-AF LUXEMBOURGER >60 Normal >=60 [facility] Comment on above: Performed By: #### C MP ####[facility] Lnhxpfbgvz4001 [place] [address]Dr. Devin Suresh EGFR-NON AF LUXEMBOURGER >60 Normal >=60 [facility] Comment on above: Performed By: #### C MP ####[facility] Kojhwktiww5194 [place] [address]Dr. Devin Suresh Globulin (S) [Mass/Vol] 2.8 g/dL Normal [facility] Comment on above: Performed By: #### C MP ####[facility] Smvepulyol8202 [place] [address]Dr. Devin Suresh Glucose [Mass/Vol] 235 mg/dL Critically high 74-106 [facility] Comment on above: Performed By: #### C MP ####[facility] Vzrrfwzmac1605 [place] [phone]. Devin Suresh Potassium [Moles/Vol] 3.5 mmol/L Normal 3.5-5.1 [facility] Comment on above: Performed By: #### C MP ####[facility] Suzbeogerc8329 [place] [address]Dr. Devin Suresh Protein [Mass/Vol] 5.9 g/dL Critically low 6.4-8.2 [facility] Comment on above: Performed By: #### C MP ####[facility] Itnqbxasoq9657 [place] [phone]. Devin Suresh Sodium [Moles/Vol] 139 mmol/L Normal 136-145 [facility] Comment on above: Performed By: #### C MP ####[facility] Kqquekhwvx8688 [place] [phone]. Devin Suresh Urea nitrogen [Mass/Vol] 4.0 mg/dL Critically low 7.0-18.0 [facility] Comment on above: Performed By: #### C MP ####[facility] Yrjncvfhtg4365 [place] [phone]. Devin Suresh Urea nitrogen/Creatinine [Mass ratio] 5.3 mg/mg Normal [facility] Comment on above: Performed By: #### C MP ####[facility] Sitvvzetee6200 [place] [address]Dr. Devin Suresh TROPONIN, HIGH SENSITIVITYon 08-05-2022 HSTROP 5.5 pg/mL Normal 4.0-51.3 [facility] Comment on above: Result Comment: CUT- OFF POINTS HAVE BEEN ESTABLISHED BASED ON THE FOURTH UNIVERSAL DEFINITIONS OF MYOCARDIALINFARCTION. THE UPPER REFERENCE LIMIT (URL) OF TROPONIN, DEFINED THE 99TH PERCENTILE OFcTnI DISTRIBUTION IN A REFERENCE POPULATION, HAS BEEN CONFIRMED THE DECISION THRESHOLDFOR MS DIAGNOSIS. Performed By: #### H STROPN ####[facility] Vvamlzkmed2873 [place] [phone]. Devin Suresh HSTROP 7.5 pg/mL Normal 4.0-51.3 [facility] Comment on above: Result Comment: CUT- OFF POINTS HAVE BEEN ESTABLISHED BASED ON THE FOURTH UNIVERSAL DEFINITIONS OF MYOCARDIALINFARCTION. THE UPPER REFERENCE LIMIT (URL) OF TROPONIN, DEFINED THE 99TH PERCENTILE OFcTnI DISTRIBUTION IN A REFERENCE POPULATION, HAS BEEN CONFIRMED THE DECISION THRESHOLDFOR MS DIAGNOSIS. Performed By: #### H STROPN ####[facility] Angmccwjzj6486 [place] [phone]. Devin Suresh HSTROP 6.9 pg/mL Normal 4.0-51.3 [facility] Comment on above: Result Comment: CUT- OFF POINTS HAVE BEEN ESTABLISHED BASED ON THE FOURTH UNIVERSAL DEFINITIONS OF MYOCARDIALINFARCTION. THE UPPER REFERENCE LIMIT (URL) OF TROPONIN, DEFINED THE 99TH PERCENTILE OFcTnI DISTRIBUTION IN A REFERENCE POPULATION, HAS BEEN CONFIRMED THE DECISION THRESHOLDFOR MS DIAGNOSIS. Performed By: #### H STROPN ####[facility] Ndvwgywkot2090 [place] [address]Dr. Devin Kerwin CBC AUTO DIFFon 08-04-2022 BASO # 0.0 103/ul Normal 0.0-0.1 [facility] Comment on above: Performed By: #### C BC ####[facility] Jkvdjnngii6199 [place] [address]Dr. Devin Suresh Basophils/100 WBC (Bld) 0.4 % Normal 0.2-2.0 [facility] Comment on above: Performed By: #### C BC ####[facility] Exzbfbbkbp[address] [place], [place] [address]Dr. Devin Suresh EO # 0.1 103/ul Normal 0.0-0.7 [facility] Comment on above: Performed By: #### C BC ####[facility] Zxrwxtzbmu6[address] [place], [place] [address]Dr. Tishemily Suresh Eosinophils/100 WBC (Bld) 2.3 % Normal 0.9-7.0 [facility] Comment on above: Performed By: #### C BC ####[facility] Clizuiyzux[address] [place], [place] [address]Dr. Devin Suresh Erythrocyte distribution width (RBC) [Ratio] 13.8 % Normal 11.0-15.0 [facility] Comment on above: Performed By: #### C BC ####[facility] Rjqvktoomo[address] [place], [place] [address]Dr. Devin Suresh Hematocrit (Bld) [Volume fraction] 29.6 % Critically low 36.0-48.0 [facility] Comment on above: Performed By: #### C BC ####[facility] Dbucbkjoui[address] [place], [place] [address]Dr. Devin Suresh Hemoglobin (Bld) [Mass/Vol] 10.0 g/dL Critically low 12.0-16.0 [facility] Comment on above: Performed By: #### C BC ####[facility] Zfjdwgwwmv8275 [place] [address]Dr. Devin Suresh IG # 0.02 10e3/ul Normal 0.00-0.03 [facility] Comment on above: Performed By: #### C BC ####[facility] Uxvuqdtavr0509 [place] [address]Dr. Devin Suresh IG % 0.4 % Normal 0.0-0.5 [facility] Comment on above: Performed By: #### C BC ####[facility] Twqhvyhvmf0832 [place] [address]Dr. Devin Suresh LYMPH # 2.4 103/ul Normal 1.2-3.8 [facility] Comment on above: Performed By: #### C BC ####[facility] Fohvawpecs3913 [place] [address]DrMaris Suresh Lymphocytes/100 WBC (Bld) 46.2 % Normal 20.5-60.0 [facility] Comment on above: Performed By: #### C BC ####[facility] Dxgjdmrwhq6838 [place] [address]DrMaris Suresh MANUAL DIFF REQ NO Normal [facility] Comment on above: Performed By: #### C BC ####[facility] Xxckgrfscm7458 [place] [address]Dr. Devin Suresh MCH (RBC) [Entitic mass] 30.7 pg Normal 26.7-34.0 [facility] Comment on above: Performed By: #### C BC ####[facility] Qlgmuqddbv8590 [place] [address]Dr. Devin Suresh MCHC (RBC) [Mass/Vol] 33.8 g/dL Normal 29.9-35.2 [facility] Comment on above: Performed By: #### C BC ####[facility] Cmhelnyriq9453 [place] [address]Dr. Devin Suresh MCV (RBC) [Entitic vol] 90.8 fL Normal 81.0-99.0 [facility] Comment on above: Performed By: #### C BC ####[facility] Gleaxrksnn0644 [place] [phone]. Devin Suresh MONO # 0.4 103/ul Normal 0.3-0.8 [facility] Comment on above: Performed By: #### C BC ####[facility] Gvywobladj5092 [place] [phone]. Devin Suresh Monocytes/100 WBC (Bld) 7.6 % Normal 1.7-12.0 [facility] Comment on above: Performed By: #### C BC ####[facility] Ouservcgld9581 [place] [phone]. Devin Suresh NEUT # 2.2 103/ul Normal 1.4-6.5 [facility] Comment on above: Performed By: #### C BC ####[facility] Pihvqzhyop1256 [place] [address]Dr. Devin Suresh Neutrophils/100 WBC (Bld) 43.1 % Normal 43.0-75.0 [facility] Comment on above: Performed By: #### C BC ####[facility] Cytfkwxyfy1897 [place] [phone]. Devin Suresh Platelet mean volume (Bld) [Entitic vol] 8.7 fL Critically low 9.5-13.5 [facility] Comment on above: Performed By: #### C BC ####[facility] Kyljnblbgx3906 [place] [phone]. Devin Suresh PLT 188 103/ul Normal 150-450 [facility] Comment on above: Performed By: #### C BC ####[facility] Ubjobhoyky7474 [place] [phone]. Devin Suresh RBC 3.26 106/ul Critically low 4.20-5.40 [facility] Comment on above: Performed By: #### C BC ####[facility] Ultdrxgrna5094 [place] [phone]. Devin Suresh WBC 5.1 103/ul Normal 4.0-11.0 [facility] Comment on above: Performed By: #### C BC ####[facility] Nfnxzuoxcn6928 [place] [phone]. Tishemily Kerwin POINT OF CARE GLUCOSEon 07-23 Glucose [Mass/Vol] 129 mg/dL Critically high [address] [place] [address] Comment on above: Performed By: #### P OCGLUC ####[facility] Unudvzzxte1355 [place] [phone]. Devin Suresh Glucose [Mass/Vol] 157 mg/dL Critically high -106 [facility] Comment on above: Performed By: #### P OCGLUC ####[facility] Gdnhhvdudl6868 [place] [phone]. Tishemily Suresh Glucose [Mass/Vol] 228 mg/dL Critically high [address] [place] [address] Comment on above: Performed By: #### P OCGLUC ####[facility] Wdbbbdqjqt9016 [place] [address]Dr. Devin Suresh Glucose [Mass/Vol] 327 mg/dL Critically high [address] [place] [address] Comment on above: Performed By: #### P OCGLUC ####[facility] Ubkjrvqkdd2520 [place] [phone]. Devin Suresh PROF 14(COMP METB)on 023 Albumin [Mass/Vol] 2.9 g/dL Critically low 3.4-5.0 Th [facility] Comment on above: Performed By: #### C MP ####[facility] Joksgzyjnm4120 [place] [address]Dr. Devin Suresh Albumin/Globulin [Mass ratio] 1.1 {ratio} Normal [facility] Comment on above: Performed By: #### C MP ####[facility] Rkpooqdeso2351 [place] [address]Dr. Devin Suresh ALP [Catalytic activity/Vol] 85 U/L Normal 46-116 [facility] Comment on above: Performed By: #### C MP ####[facility] Ifwsfwkmgb0245 [place] [address]Dr. Devin Suresh ALT [Catalytic activity/Vol] 14 U/L Normal 14-59 [facility] Comment on above: Performed By: #### C MP ####[facility] Dtdbmazgmw6513 [place] [phone]. Devin Suresh Anion gap [Moles/Vol] 13.3 mmol/L Normal Th [facility] Comment on above: Performed By: #### C MP ####[facility] Nkfanyukst4492 [place] [phone]. Devin Suresh AST [Catalytic activity/Vol] 11 U/L Critically low 15-37 [facility] Comment on above: Performed By: #### C MP ####[facility] Yococpteli2109 [place] [phone]. Devin Kerwin Bilirubin [Mass/Vol] 0.2 mg/dL Normal 0.2-1.0 [facility] Comment on above: Performed By: #### C MP ####[facility] Zdqmehonse3921 [place] [phone]. Devin Suresh Calcium [Mass/Vol] 7.5 mg/dL Critically low 8.5-10.1 [facility] Comment on above: Performed By: #### C MP ####[facility] Kwyghqidph0095 [place] [address]Dr. Devin Kerwin Chloride [Moles/Vol] 109 mmol/L Critically high 98-107 [facility] Comment on above: Performed By: #### C MP ####[facility] Qnojxgrhwp7374 [place] [phone]. Tishemily Kerwin CO2 [Moles/Vol] 21.6 mmol/L Normal 21.0-32.0 [facility] Comment on above: Performed By: #### C MP ####[facility] Erlurwbvwa9475 [place] [phone]. Devin Kerwin Creatinine [Mass/Vol] 1.15 mg/dL Critically high 0.55-1.02 [facility] Comment on above: Performed By: #### C MP ####[facility] Gbwzhajacu5142 [place] [phone]. Devin Kerwin EGFR-AF LUXEMBOURGER >60 Normal >=60 [facility] Comment on above: Performed By: #### C MP ####[facility] Nmifowaitv1728 [place] [phone]. Devin Suresh EGFR-NON AF LUXEMBOURGER 51 mL/min/1.73m2 Critically low >=60 [facility] Comment on above: Performed By: #### C MP ####[facility] Jneqoootex7325 [place] [address]Dr. Devin Suresh Globulin (S) [Mass/Vol] 2.6 g/dL Normal [facility] Comment on above: Performed By: #### C MP ####[facility] Qwpohzwdtd5861 [place] [address]Dr. Devin Suresh Glucose [Mass/Vol] 268 mg/dL Critically high 74-106 [facility] Comment on above: Performed By: #### C MP ####[facility] Sjxoxwpqmu9613 [place] [address]Dr. Devin Suresh Potassium [Moles/Vol] 3.9 mmol/L Normal 3.5-5.1 [facility] Comment on above: Performed By: #### C MP ####[facility] Hjqpbqyiki[address] [place], [place] [address]Dr. Devin Suresh Protein [Mass/Vol] 5.5 g/dL Critically low 6.4-8.2 Th [facility] Comment on above: Performed By: #### C MP ####[facility] Cmcaafvkbq8[address] [place], [place] [address]Dr. Devin Suresh Sodium [Moles/Vol] 140 mmol/L Normal 136-145 [facility] Comment on above: Performed By: #### C MP ####[facility] Lnwyfcpsqh4168 [place] [address]Dr. Devin Suresh Urea nitrogen [Mass/Vol] 13.0 mg/dL Normal 7.0-18.0 [facility] Comment on above: Performed By: #### C MP ####[facility] Vmufejqthz5638 [place] [address]Dr. Devin Suresh Urea nitrogen/Creatinine [Mass ratio] 11.3 mg/mg Normal [facility] Comment on above: Performed By: #### C MP ####[facility] Gifnoixwma3812 [place] [phone]. Devin Suresh CBC AUTO DIFFon 08-03-2022 BASO # 0.0 103/ul Normal 0.0-0.1 [facility] Comment on above: Performed By: #### C BC ####[facility] Ugxwbgqkap2058 [place] [phone]. Devin Suresh Basophils/100 WBC (Bld) 0.6 % Normal 0.2-2.0 [facility] Comment on above: Performed By: #### C BC ####[facility] Txbjkualbg[address] [place], [place] [address]Dr. Devin Suresh EO # 0.1 103/ul Normal 0.0-0.7 [facility] Comment on above: Performed By: #### C BC ####[facility] Drjhhgldao80[address] [place], [place] [address]Dr. Devin Kerwin Eosinophils/100 WBC (Bld) 3.1 % Normal 0.9-7.0 [facility] Comment on above: Performed By: #### C BC ####[facility] Kyysgaltjw[address] [place], [place] [address]Dr. Devin Suresh Erythrocyte distribution width (RBC) [Ratio] 13.6 % Normal 11.0-15.0 [facility] Comment on above: Performed By: #### C BC ####[facility] Augbvgkero57[address] [place], [place] [address]Dr. Devin Suresh Hematocrit (Bld) [Volume fraction] 27.8 % Critically low 36.0-48.0 [facility] Comment on above: Performed By: #### C BC ####[facility] Kjteungayi[address] [place], [place] [address]Dr. Devin Suresh Hemoglobin (Bld) [Mass/Vol] 9.6 g/dL Critically low 12.0-16.0 [facility] Comment on above: Performed By: #### C BC ####[facility] Ejxbagxicl[address] [place], [place] [address]Dr. Devin Suresh IG # 0.01 10e3/ul Normal 0.00-0.03 [facility] Comment on above: Performed By: #### C BC ####[facility] Evrzagixcx7970 [place] [address]Dr. Tishemily Suresh IG % 0.3 % Normal 0.0-0.5 [facility] Comment on above: Performed By: #### C BC ####[facility] Doxdmsdusc0169 [place] [phone] Tishemily Suresh LYMPH # 1.5 103/ul Normal 1.2-3.8 [facility] Comment on above: Performed By: #### C BC ####[facility] Masmlethtf5832 [place] [address]Dr. Tishemily Suresh Lymphocytes/100 WBC (Bld) 41.2 % Normal 20.5-60.0 [facility] Comment on above: Performed By: #### C BC ####[facility] U[address]emvwoztn[address] [place], [place] [address]DrMaris Suresh MANUAL DIFF REQ NO Normal [facility] Comment on above: Performed By: #### C BC ####[facility] Jfbbbsleot5911 [place] [phone]. Devin Kerwin MCH (RBC) [Entitic mass] 31.0 pg Normal 26.7-34.0 [facility] Comment on above: Performed By: #### C BC ####[facility] Vsexjmfpgi[address] [place], [place] [phone]. Devin Kerwin MCHC (RBC) [Mass/Vol] 34.5 g/dL Normal 29.9-35.2 [facility] Comment on above: Performed By: #### C BC ####[facility] [address]yay[address]arcf[address] [place], [place] [phone] Tishemily Suresh MCV (RBC) [Entitic vol] 89.7 fL Normal 81.0-99.0 [facility] Comment on above: Performed By: #### C BC ####[facility] Rpkzepnoul2394 [place] [phone] Suresh MONO # 0.4 103/ul Normal 0.3-0.8 [facility] Comment on above: Performed By: #### C BC ####[facility] Uypctxdzdd9100 [place] [phone]. Devin Suresh Monocytes/100 WBC (Bld) 10.0 % Normal 1.7-12.0 [facility] Comment on above: Performed By: #### C BC ####[facility] Bfwyszaseu4368 [place] [phone]. Devin Suresh NEUT # 1.6 103/ul Normal 1.4-6.5 [facility] Comment on above: Performed By: #### C BC ####[facility] Rmwphpmwbr9233 [place] [phone]. Devin Suresh Neutrophils/100 WBC (Bld) 44.8 % Normal 43.0-75.0 [facility] Comment on above: Performed By: #### C BC ####[facility] [facility] [address] [place] [id number]. Devin Suresh Platelet mean volume (Bld) [Entitic vol] 8.7 fL Critically low 9.5-13.5 [facility] Comment on above: Performed By: #### C BC ####[facility] Yzkdjnvxbn7[address] [place] [id number]. Devin Suresh PLT 185 103/ul Normal 150-450 [facility] Comment on above: Performed By: #### C BC ####[facility] Vbmjaznuhc9199 [place] [id number]. Devin Suresh RBC 3.10 106/ul Critically low 4.20-5.40 [facility] Comment on above: Performed By: #### C BC ####[facility] Nfjbxyhcws7[address] [place] [id number]. Devin Suresh WBC 3.6 103/ul Critically low 4.0-11.0 The [facility] Comment on above: Performed By: #### C BC ####[facility] Bjzkhxtzuo88[address] [place] [phone]. Devin Suresh GI PANEL (PCR)on 08-03-2022 Adenovirus F 40/41 Not detected Normal NOT DETECTED [facility] Comment on above: Performed By: #### G IPANEL ####[facility] Opsynntccc[address] [place], [place] [address]Dr. Devin Suresh Astrovirus Not detected Normal NOT DETECTED [facility] Comment on above: Performed By: #### G IPANEL ####[facility] Aindlfgqle362[address] [place], [place] [address]Dr. Devin Suresh C. Diff toxin A/B Not detected Normal NOT DETECTED [facility] Comment on above: Performed By: #### G IPANEL ####[facility] Tzswzgsofb[address] [place], [place] [address]Dr. Devin Suresh Campylobacter Not detected Normal NOT DETECTED [facility] Comment on above: Performed By: #### G IPANEL ####[facility] Ahizlcwlwt9813[address] [place], [place] [address]Dr. Devin Suresh Cryptosporidium Not detected Normal NOT DETECTED [facility] Comment on above: Performed By: #### G IPANEL ####[facility] Hrxpvpysva[address] [place], [place] [address]Dr. Devin Suresh Cyclos. Cayetanensis Not detected Normal NOT DETECTED [facility] Comment on above: Performed By: #### G IPANEL ####[facility] Tdnsptcvag8[address] [place], [place] [address]Dr. Devin Suresh E. Coli O157 Not Applicable Normal Not Applicable [facility] Comment on above: Performed By: #### G IPANEL ####[facility] Qdcdztxscb[address] [place], [place] [address]Dr. Devin Suresh E. histolytica Not detected Normal NOT DETECTED [facility] Comment on above: Performed By: #### G IPANEL ####[facility] Fjemasngud9[address] [place], [place] [address]Dr. Devin Suresh EAEC Not detected Normal NOT DETECTED [facility] Comment on above: Performed By: #### G IPANEL ####[facility] Tjptgvxkww[address] [place], [place] [address]Dr. Devin Suresh EIEC Not detected Normal NOT DETECTED [facility] Comment on above: Performed By: #### G IPANEL ####[facility] Noicdseubk[address] [place] [address]Dr. Devin Suresh EPEC Not detected Normal NOT DETECTED [facility] Comment on above: Performed By: #### G IPANEL ####[facility] Svtuqvdtll0[address] [place] [address]Dr. Devin Suresh ETEC Not detected Normal NOT DETECTED [facility] Comment on above: Performed By: #### G IPANEL ####[facility] Uynwpnvvzi[address] [place] [address]Dr. Devin Suresh G. Lamblia Not detected Normal NOT DETECTED [facility] Comment on above: Performed By: #### G IPANEL ####[facility] Zyslwgpsqq4[address] [place], [place] [address]Dr. Devin Suresh GIPANEL CONTROLS PASSED Normal [facility] Comment on above: Performed By: #### G IPANEL ####[facility] Qefajuxvkg034[address] [place], [place] [address]Dr. Devin Suresh [facility] HEADER GI PANEL BACTERIA Normal T [facility] Comment on above: Performed By: #### G IPANEL ####[facility] Mujsmfnbep7[address] [place], [place] [address]Dr. Devin Suresh [facility] SHAWHD ECOLI GI PANEL DIARRHEAGEN IC E.COLI / SHIGELLA Normal [facility] Comment on above: Performed By: #### G IPANEL ####[facility] Okapwrasrg7059[address] [place], [place] [address]Dr. Devin Suresh [facility] SEE BELOW Normal [facility] Comment on above: Result Comment: EAEC - Enteroaggregative E. Coli EPEC- Enteropathogenic E. Coli ETEC- Enterotoxigenic E. Coli lt/st STEC- Shigella-like toxin-producing E. Coli stx1/stx2 EIEC- Shigella/Enteroinvasive E. Coli Performed By: #### G IPANEL ####[facility] Mnxxwkqcuf[address] [place], [place] [address]Dr. Devin Suresh GIPNLHD PARASITES GI PANEL PARASITES Normal [facility] Comment on above: Performed By: #### G IPANEL ####[facility] Vnujejlfwi614[address] [place], [place] [address]Dr. Devin Suresh GIPNLHD VIRUS GI PANEL VIRUSES Normal The [facility] Comment on above: Performed By: #### G IPANEL ####[facility] Uskfnzurxe7060[address] [place], [place] [address]Dr. Devin Suresh Norovirus GI/GII Not detected Normal NOT DETECTED [facility] Comment on above: Performed By: #### G IPANEL ####[facility] Xeltxgakub2297[address] [place], [place] [address]Dr. Tishemily Suresh P. Shigelloides Not detected Normal NOT DETECTED [facility] Comment on above: Performed By: #### G IPANEL ####[facility] Mhoksdisjb[address] [place], [place] [address]Dr. Tishemily Suresh Rotavirus A Not detected Normal NOT DETECTED [facility] Comment on above: Performed By: #### G IPANEL ####[facility] Xxlenxmhlo[address] [place], [place] [address]Dr. Devin Suresh Salmonella Not detected Normal NOT DETECTED [facility] Comment on above: Performed By: #### G IPANEL ####[facility] Treaxvinpk[address] [place], [place] [address]Dr. Tishemily Suresh Sapovirus Not detected Normal NOT DETECTED [facility] Comment on above: Performed By: #### G IPANEL ####[facility] Pcvxbyvynp[address] [place], [place] [address]Dr. Tishemily Suresh STEC Not detected Normal NOT DETECTED [facility] Comment on above: Performed By: #### G IPANEL ####[facility] Qguhsndtxb39[address] [place], [place] [address]Dr. Tishemily Suresh Vibrio Not detected Normal NOT DETECTED [facility] Comment on above: Performed By: #### G IPANEL ####[facility] Wvpxrketud1099[address] [place], [place] [address]Dr. Tishemily Suresh Vibrio Cholera Not detected Normal NOT DETECTED [facility] Comment on above: Performed By: #### G IPANEL ####[facility] Wntfxerpgq8045[address] [place], [place] [address]Dr. Devin Suresh Y. Enterocolitica Not detected Normal NOT DETECTED [facility] Comment on above: Performed By: #### G IPANEL ####[facility] Fktznjqnyc[address] [place] [address]Dr. Devin Suresh POINT OF CARE GLUCOSEon 07-23 Glucose [Mass/Vol] 199 mg/dL Critically high 74-106 [facility] Comment on above: Performed By: #### P OCGLUC ####[facility] Wuonpzfemy[address] [place] [address]Dr. Devin Suresh Glucose [Mass/Vol] 193 mg/dL Critically high 74-106 [facility] Comment on above: Performed By: #### P OCGLUC ####[facility] Hfxbamzsgn[address] [place], [place] [address]Dr. Devin Suresh Glucose [Mass/Vol] 276 mg/dL Critically high 74-106 [facility] Comment on above: Performed By: #### P OCGLUC ####[facility] Bnkfhsfycn74[address] [place], [place] [address]Dr. Devin Suresh PROF 14(COMP METB)on 023 Albumin [Mass/Vol] 2.8 g/dL Critically low 3.4-5.0 Th [facility] Comment on above: Performed By: #### C MP ####[facility] Bnqudsqpii[address] [place] [address]Dr. Devin Suresh Albumin/Globulin [Mass ratio] 1.1 {ratio} Normal [facility] Comment on above: Performed By: #### C MP ####[facility] W[address]afstzdga[address] [place] [address]Dr. Devin Suresh ALP [Catalytic activity/Vol] 85 U/L Normal 46-116 [facility] Comment on above: Performed By: #### C MP ####[facility] Tcxurbonhf7[address] [place], [place] [address]Dr. Devin Suresh ALT [Catalytic activity/Vol] 13 U/L Critically low 14-59 [facility] Comment on above: Performed By: #### C MP ####[facility] Emogcdfysr9[address] [place], [place] [address]Dr. Devin Suresh Anion gap [Moles/Vol] 10.2 mmol/L Normal [facility] Comment on above: Performed By: #### C MP ####[facility] Fqfcyylxtw498[address] [place], [place] [address]Dr. Devin Kerwin AST [Catalytic activity/Vol] 12 U/L Critically low 15-37 [facility] Comment on above: Performed By: #### C MP ####[facility] Axqawaiucx[address] [place], [place] [address]Dr. Devin Suresh Bilirubin [Mass/Vol] 0.3 mg/dL Normal 0.2-1.0 [facility] Comment on above: Performed By: #### C MP ####[facility] Geyxaqdabn[address] [place], [place] [address]Dr. Devin Suresh Calcium [Mass/Vol] 7.4 mg/dL Critically low 8.5-10.1 [facility] Comment on above: Performed By: #### C MP ####[facility] Cgiokdsgdx4664[address] [place], [place] [address]Dr. Devin Suresh Chloride [Moles/Vol] 107 mmol/L Normal 98-107 [facility] Comment on above: Performed By: #### C MP ####[facility] Dhrantfatv524850 [address] [place], [place] [address]Dr. Devin Suresh CO2 [Moles/Vol] 23.4 mmol/L Normal 21.0-32.0 [facility] Comment on above: Performed By: #### C MP ####[facility] Dyabogncwe1478[address] [place], [place] [address]Dr. Devin Suresh Creatinine [Mass/Vol] 1.23 mg/dL Critically high 0.55-1.02 [facility] Comment on above: Performed By: #### C MP ####[facility] Pwqafntjvp[address] [place], [place] [address]Dr. Devin Suresh EGFR-AF LUXEMBOURGER 57 mL/min/1.73m2 Critically low >=60 [facility] Comment on above: Performed By: #### C MP ####[facility] Clfzmmscxa2859[address] [place], [place] [address]Dr. Devin Suresh EGFR-NON AF LUXEMBOURGER 47 mL/min/1.73m2 Critically low >=60 [facility] Comment on above: Performed By: #### C MP ####[facility] Grrr[address]fe[address] [place] [address]Dr. Tishemily Kerwin Globulin (S) [Mass/Vol] 2.5 g/dL Normal [facility] Comment on above: Performed By: #### C MP ####[facility] Cscppiqtux66[address] [place], [place] [address]Dr. Devin Suresh Glucose [Mass/Vol] 284 mg/dL Critically high 74-106 T [facility] Comment on above: Performed By: #### C MP ####[facility] Crcaauqsew[address] [place], [place] [address]Dr. Devin Suresh Potassium [Moles/Vol] 3.6 mmol/L Normal 3.5-5.1 [facility] Comment on above: Performed By: #### C MP ####[facility] Jfffvyaqxg6716[address] [place], [place] [address]Dr. Devin Suresh Protein [Mass/Vol] 5.3 g/dL Critically low 6.4-8.2 Th [facility] Comment on above: Performed By: #### C MP ####[facility] Aytqdxqflw5[address] [place], [place] [address]Dr. Devin Suresh Sodium [Moles/Vol] 137 mmol/L Normal 136-145 [facility] Comment on above: Performed By: #### C MP ####[facility] Owwnypockp[address] [place], [place] [address]Dr. Devin Suresh Urea nitrogen [Mass/Vol] 14.0 mg/dL Normal 7.0-18.0 [facility] Comment on above: Performed By: #### C MP ####[facility] Zgdefbnhyc33[address] [place], [place] [address]Dr. Devin Suresh Urea nitrogen/Creatinine [Mass ratio] 11.4 mg/mg Normal [facility] Comment on above: Performed By: #### C MP ####[facility] Wgrhzusblz0[address] [place], [place] [address]Dr. Devin Suresh BNPon 08-02-2022 Natriuretic peptide B (Bld) [Mass/Vol] 84.0 pg/mL Normal <=450.0 [facility] Comment on above: Performed By: #### C MADM, CMP, BNP, CRP ####[facility] Ag[address]qwgry[address] [place] [address]Dr. Devin Suresh CARDIAC LAURA ADMITon 023 CK [Catalytic activity/Vol] 46 U/L Normal 26-192 [facility] Comment on above: Performed By: #### C MADM, CMP, BNP, CRP ####[facility] Fbpsvnqsku[address] [place] [address]Dr. Devin Suresh CK.MB [Mass/Vol] ng/mL Normal <=3.60 [facility] Comment on above: Performed By: #### C MADM, CMP, BNP, CRP ####[facility] Bqjlkuujtb[address] [place] [address]Dr. Devin Suresh HSTROP 6.5 pg/mL Normal 4.0-51.3 [facility] Comment on above: Result Comment: CUT- OFF POINTS HAVE BEEN ESTABLISHED BASED ON THE FOURTH UNIVERSAL DEFINITIONS OF MYOCARDIALINFARCTION. THE UPPER REFERENCE LIMIT (URL) OF TROPONIN, DEFINED THE 99TH PERCENTILE OFcTnI DISTRIBUTION IN A REFERENCE POPULATION, HAS BEEN CONFIRMED THE DECISION THRESHOLDFOR MS DIAGNOSIS. Performed By: #### C MADM, CMP, BNP, CRP ####[facility] Azrcufvitv2240 [place] [address]Dr. Devin Suresh MELANIE 75 ng/mL Normal 9-82 [facility] Comment on above: Performed By: #### C MADM, CMP, BNP, CRP ####[facility] Dgzypvxvxi[address] [place] [address]Dr. Devin Suresh CBC AUTO DIFFon 08-02-2022 BASO # 0.0 103/ul Normal 0.0-0.1 [facility] Comment on above: Performed By: #### C BC ####[facility] Gsfpopomhc[address] [place] [address]Dr. Devin Suresh Basophils/100 WBC (Bld) 0.4 % Normal 0.2-2.0 The [facility] Comment on above: Performed By: #### C BC ####[facility] Tdypkvlrre[address] [place] [address]Dr. Devin Suresh EO # 0.1 103/ul Normal 0.0-0.7 [facility] Comment on above: Performed By: #### C BC ####[facility] Yhihjomuau[address] [place], [place] [address]Dr. Tishemily Suresh Eosinophils/100 WBC (Bld) 1.4 % Normal 0.9-7.0 [facility] Comment on above: Performed By: #### C BC ####[facility] Urvqfacpfj8[address] [place], [place] [address]Dr. Tishemily Suresh Erythrocyte distribution width (RBC) [Ratio] 13.3 % Normal 11.0-15.0 [facility] Comment on above: Performed By: #### C BC ####[facility] Exofisgdjn[address] [place], [place] [address]Dr. Tishemily Suresh Hematocrit (Bld) [Volume fraction] 33.4 % Critically low 36.0-48.0 [facility] Comment on above: Performed By: #### C BC ####[facility] Hssdgohcfx[address] [place], [place] [address]Dr. Devin Kerwin Hemoglobin (Bld) [Mass/Vol] 11.6 g/dL Critically low 12.0-16.0 [facility] Comment on above: Performed By: #### C BC ####[facility] Ndtthcgvvc23[address] [place], [place] [address]Dr. Devin Suresh IG # 0.01 10e3/ul Normal 0.00-0.03 [facility] Comment on above: Performed By: #### C BC ####[facility] Xoxnxznpar8039[address] [place], [place] [address]Dr. Devin Suresh IG % 0.2 % Normal 0.0-0.5 [facility] Comment on above: Performed By: #### C BC ####[facility] Rhqataosqu9[address] [place], [place] [address]DrMaris Suresh LYMPH # 1.3 103/ul Normal 1.2-3.8 [facility] Comment on above: Performed By: #### C BC ####[facility] Xteudhgdgx9554 [place] [address]Dr. Devin Suresh Lymphocytes/100 WBC (Bld) 24.5 % Normal 20.5-60.0 [facility] Comment on above: Performed By: #### C BC ####[facility] Uvfqxwppbm13[address] [place] [address]Dr. Devin Suresh MANUAL DIFF REQ NO Normal [facility] Comment on above: Performed By: #### C BC ####[facility] Ueovrowpxz0654 [place] [phone]. Devin Suresh MCH (RBC) [Entitic mass] 30.5 pg Normal 26.7-34.0 [facility] Comment on above: Performed By: #### C BC ####[facility] Efldkzecwt[address] [place], [place] [address]Dr. Devin Suresh MCHC (RBC) [Mass/Vol] 34.7 g/dL Normal 29.9-35.2 [facility] Comment on above: Performed By: #### C BC ####[facility] Eoouufnpgm[address] [place], [place] [address]Dr. Devin Suresh MCV (RBC) [Entitic vol] 87.9 fL Normal 81.0-99.0 [facility] Comment on above: Performed By: #### C BC ####[facility] Xfkrhypqke[address] [place] [address]Dr. Devin Suresh MONO # 0.4 103/ul Normal 0.3-0.8 [facility] Comment on above: Performed By: #### C BC ####[facility] Rf[address]ornlen[address] [place], [place] [address]Dr. Devin Suresh Monocytes/100 WBC (Bld) 8.4 % Normal 1.7-12.0 [facility] Comment on above: Performed By: #### C BC ####[facility] Cy[address] [place], [place] [address]DrMaris Suresh NEUT # 3.4 103/ul Normal 1.4-6.5 [facility] Comment on above: Performed By: #### C BC ####[facility] Fevsehiaki[address] [place] [phone]. Devin Suresh Neutrophils/100 WBC (Bld) 65.1 % Normal 43.0-75.0 [facility] Comment on above: Performed By: #### C BC ####[facility] Hxpxgbkhyc09[address] [place] [phone]. Devin Suresh Platelet mean volume (Bld) [Entitic vol] 8.8 fL Critically low 9.5-13.5 [facility] Comment on above: Performed By: #### C BC ####[facility] Wrcrkmrnvi[address] [place] [address]Dr. Devin Suresh PLT 218 103/ul Normal 150-450 [facility] Comment on above: Performed By: #### C BC ####[facility] Okhkkimbhx[address] [place] [address]Dr. Devin Suresh RBC 3.80 106/ul Critically low 4.20-5.40 [facility] Comment on above: Performed By: #### C BC ####[facility] Rgiwjwrdzo57[address] [place] [phone]. Devin Suresh WBC 5.1 103/ul Normal 4.0-11.0 [facility] Comment on above: Performed By: #### C BC ####[facility] Opoupbhdai[address] [place] [phone]. Devin Suresh CRPon 08-02-2022 CRP 2.4 mg/dL Critically high <=1.0 [facility] Comment on above: Performed By: #### C MADM, CMP, BNP, CRP ####[facility] Gqfelvtouc[address] [place] [phone]. Devin Suresh CULTURE BLOODon 08-02-2022 Microscopic examination of blood, culture Culture Observations: NO GROWTH AT 5 DAYS. Normal [facility] Comment on above: Performed By: #### B LDCX2 ####[facility] Qunirltufm[address] [place] [phone]. Devin Suresh Microscopic examination of blood, culture Culture Observations: NO GROWTH AT 5 DAYS. Normal [facility] Comment on above: Performed By: #### B LDCX1 ####[facility] Crbmrtwwki6[address] [place] [phone]. Devin Suresh CULTURE URINEon 08-02-2022 CULTURE URINE Culture Observations : LIGHT GROWTH OF MIXED GENITAL ERIC. NO POTENTIAL PATHOGENS SEEN. Normal [facility] Comment on above: Performed By: #### U RCX ####[facility] Exzjcijvnf64[address] [place] [phone]. Devin Suresh Covid-19 PCR (CVDTBH)on 07-23 SARS-CoV-2 (COVID-19) RNA EBONIE+probe Ql (Unsp spec) Not detected Normal NOT DETECTED [facility] Comment on above: Result Comment: When [...] for this test is supported by the Front Desk Person of Health and Human Service's declaration that [...] be used). Performed By: #### C VDTBH ####[facility] Jxgjzmuhhv4[address] [place] [phone]. Devin Suresh ER URINE PROFILEon 3 Bilirubin Ql (U) Negative Normal NEGATIVE [facility] Comment on above: Performed By: #### E CHUCKY ALLEN ####[facility] Lcruekmhdt[address] [place] [phone]. Devin Suresh Clarity (U) CLEAR Normal CLEAR [facility] Comment on above: Performed By: #### REAGAN STARRRO ####[facility] Pw[address]yzhmar[address] [place] [address]Dr. Devin Suresh Color (U) LT. YELLOW Normal YELLOW [facility] Comment on above: Performed By: #### REAGAN STARRRO ####[facility] Udrwtxyotn[address] [place] [address]Dr. Devin Suresh ERUAHD A micrscopic examina tion will be performed if indicated. Normal [facility] Comment on above: Performed By: #### REAGAN STARRRO ####[facility] Sxsntrsnpn[address] [place], [place] [address]Dr. Devin Suresh Glucose Ql (U) >1000 Abnormal NEGATIVE [facility] Comment on above: Performed By: #### REAGAN STARRRO ####[facility] Dqihdtlzjd[address] [place], [place] [address]Dr. Devin Suresh Hemoglobin Ql (U) TRACE-LYSED Abnormal NEGATIVE The [facility] Comment on above: Performed By: #### REAGAN STARRRO ####[facility] Vsjklezalf[address] [place], [place] [address]Dr. Devin Suresh Ketones Ql (U) Negative Normal NEGATIVE [facility] Comment on above: Performed By: #### REAGAN STARRRO ####[facility] Yqrtaozqjs[address] [place], [place] [address]Dr. Devin Suresh LEUKOCYTES Negative Normal NEGATIVE The [facility] Comment on above: Performed By: #### REAGAN STARRRO ####[facility] Cwaxvd[address]zu[address] [place], [place] [address]Dr. Devin Suresh Nitrite Ql (U) Negative Normal NEGATIVE [facility] Comment on above: Performed By: #### REAGAN SATRRRO ####[facility] Lxvrazibcw0[address] [place], [place] [address]Dr. Devin Suresh pH (U) 6.0 [pH] Normal 5-9 The [facility] Comment on above: Performed By: #### REAGAN STARRRO ####[facility] [address] [place] [address]Dr. Devin Suresh SPEC GRAVITY 1.010 Normal 1.005-<=1.0 25 [facility] Comment on above: Performed By: #### CHUCKY STARR ####[facility] Vktcdeylvr[address] [place] [address]Dr. Devin Suresh UA PROTEIN Negative Normal NEGATIVE/ TRACE The [facility] Comment on above: Performed By: #### CHUCKY STARR ####[facility] Sbwfmmpwye[address] [place] [address]Dr. Devin Suresh UR MICRO IND INDICATED Normal [facility] Comment on above: Performed By: #### CHUCKY STARR ####[facility] Rtltjwehlm[address] [place] [address]Dr. Devin Suresh Urobilinogen Qn (U) 0.2 {Sheyla'U}/dL Normal 0.2 - 1. 0 [facility] Comment on above: Performed By: #### CHUCKY STARR ####[facility] Lvmxaavbqy14[address] [place] [address]Dr. Devin Suresh LACTATE/LACTIC ACIDon 2022 Lactate [Moles/Vol] 1.2 mmol/L Normal 0.4-2.0 [facility] Comment on above: Performed By: #### L ACT ####[facility] Jaygvozxsp[address] [place] [address]Dr. Devin Suresh Lactate [Moles/Vol] 3.1 mmol/L Critically high 0.4-2.0 [facility] Comment on above: Performed By: #### L ACT ####[facility] Uhdcaykflm[address] [place], [place] [address]Dr. Devin Suresh POINT OF CARE GLUCOSEon 07-23 Glucose [Mass/Vol] 293 mg/dL Critically high 74-106 [facility] Comment on above: Performed By: #### P OCGLUC ####[facility] Fldsbzvmst[address] [place], [place] [address]Dr. Devin Suresh POCGLUC >600 Critically high 74-106 [facility] Comment on above: Result Comment: Lab Draw Ordered Performed By: #### P OCGLUC ####[facility] Wnyvdxvmmf[address] [place] [address]Dr. Devin Suresh PROF 14(COMP METB)on 023 Albumin [Mass/Vol] 3.6 g/dL Normal 3.4-5.0 [facility] Comment on above: Performed By: #### C MADM, CMP, BNP, CRP ####[facility] Wleaciocnh[address] [place] [address]Dr. Devin Suresh Albumin/Globulin [Mass ratio] 1.2 {ratio} Normal [facility] Comment on above: Performed By: #### C MADM, CMP, BNP, CRP ####[facility] Csmcjlnhbf[address] [place] [address]Dr. Deivn Suresh ALP [Catalytic activity/Vol] 113 U/L Normal 46-116 [facility] Comment on above: Performed By: #### C MADM, CMP, BNP, CRP ####[facility] Jyzyefvida[address] [place] [address]Dr. Devin Suresh ALT [Catalytic activity/Vol] 12 U/L Critically low 14-59 [facility] Comment on above: Performed By: #### C MADM, CMP, BNP, CRP ####[facility] Dcimrkokuc[address] [place] [address]Dr. Devin Suresh Anion gap [Moles/Vol] 15.4 mmol/L Normal [facility] Comment on above: Performed By: #### C MADM, CMP, BNP, CRP ####[facility] Wavlhtdwud14[address] [place] [address]Dr. Devin Suresh AST [Catalytic activity/Vol] 13 U/L Critically low 15-37 [facility] Comment on above: Performed By: #### C MADM, CMP, BNP, CRP ####[facility] Hftutkuboz[address] [place] [address]Dr. Devin Suresh Bilirubin [Mass/Vol] 0.5 mg/dL Normal 0.2-1.0 [facility] Comment on above: Performed By: #### C MADM, CMP, BNP, CRP ####[facility] Dhwbjgsnkq34[address] [place] [address]Dr. Devin Suresh Calcium [Mass/Vol] 8.4 mg/dL Critically low 8.5-10.1 Th e [facility] Comment on above: Performed By: #### C MADM, CMP, BNP, CRP ####[facility] Oeidysqwla20[address] [place] [address]Dr. Devin Suresh Chloride [Moles/Vol] 96 mmol/L Critically low 98-107 The [facility] Comment on above: Performed By: #### C MADM, CMP, BNP, CRP ####[facility] Osdjeztmzf4[address] [place] [address]Dr. Devin Suresh CO2 [Moles/Vol] 21.8 mmol/L Normal 21.0-32.0 [facility] Comment on above: Performed By: #### C MADM, CMP, BNP, CRP ####[facility] Wrddspbifo[address] [place], [place] [address]Dr. Devin Suresh Creatinine [Mass/Vol] 1.54 mg/dL Critically high 0.55-1.02 [facility] Comment on above: Performed By: #### C MADM, CMP, BNP, CRP ####[facility] Rygtrzbitm[address] [place], [place] [address]Dr. Devin Suresh EGFR-AF LUXEMBOURGER 44 mL/min/1.73m2 Critically low >=60 The [facility] Comment on above: Performed By: #### C MADM, CMP, BNP, CRP ####[facility] Pirvavakdh[address] [place], [place] [address]Dr. Devin Suresh EGFR-NON AF LUXEMBOURGER 36 mL/min/1.73m2 Critically low >=60 The [facility] Comment on above: Performed By: #### C MADM, CMP, BNP, CRP ####[facility] Frimtjhxir30[address] [place] [address]Dr. Devin Suresh Globulin (S) [Mass/Vol] 3.1 g/dL Normal [facility] Comment on above: Performed By: #### C MADM, CMP, BNP, CRP ####[facility] Ompcxcsfbi4[address] [place] [address]Dr. Devin Suresh Glucose [Mass/Vol] 562 mg/dL Critically high 74-106 T [facility] Comment on above: Performed By: #### C MADM, CMP, BNP, CRP ####[facility] Qwctajwncx7[address] [place] [address]Dr. Devin Suresh Potassium [Moles/Vol] 4.2 mmol/L Normal 3.5-5.1 [facility] Comment on above: Performed By: #### C MADM, CMP, BNP, CRP ####[facility] Izznqspjte[address] [place] [address]Dr. Devin Suresh Protein [Mass/Vol] 6.7 g/dL Normal 6.4-8.2 [facility] Comment on above: Performed By: #### C MADM, CMP, BNP, CRP ####[facility] Eghabigxgx[address] [place] [address]Dr. Devin Suresh Sodium [Moles/Vol] 129 mmol/L Critically low 136-145 Th [facility] Comment on above: Performed By: #### C MADM, CMP, BNP, CRP ####[facility] Htygpyqken[address] [place], [place] [address]Dr. Devin Suresh Urea nitrogen [Mass/Vol] 18.0 mg/dL Normal 7.0-18.0 [facility] Comment on above: Performed By: #### C MADM, CMP, BNP, CRP ####[facility] Ggrquzbado33[address] [place], [place] [address]Dr. Devin Suresh Urea nitrogen/Creatinine [Mass ratio] 11.7 mg/mg Normal [facility] Comment on above: Performed By: #### C MADM, CMP, BNP, CRP ####[facility] Nfuqxdtkdx[address] [place], [place] [address]Dr. Devin Suresh PROTIMEon 08-02-2022 INR Coag (PPP) [Relative time] 0.96 {INR} Normal [facility] Comment on above: Performed By: #### P T, PTT ####[facility] Xsdqfrzana[address] [place], [place] [address]Dr. Devin Suresh INR GUIDELINES SEE BELOW Normal [facility] Comment on above: Result Comment: EVA RED INR: 2.0 - 3.0 CONDITIONS NOT LISTED BELOW 2.5 - 3.5 FOR PROSTHETIC HEART VALVE REPLACEMENT 2.5 - 3.5 RECURRENT THROMBOSIS Performed By: #### P T, PTT ####[facility] Zpbrkkokxm[address] [place], [place] [address]Dr. Devin Suresh PT Coag (PPP) [Time] 10.2 s Normal 9.0-11.6 The [facility] Comment on above: Performed By: #### P T, PTT ####[facility] Smvczghjqg[address] [place], [place] [address]Dr. Devin Suresh PTTon 08-02-2022 aPTT Coag (Bld) [Time] 26.4 s Normal 22.3-36.2 The [facility] Comment on above: Performed By: #### P T, PTT ####[facility] Vgwhcewxwb8090[address] [place], [place] [address]Dr. Devin Suresh [facility] SED [facility] 22 mm/hr Critically high <=20 The [facility] Comment on above: Performed By: #### S EDR ####[facility] Xyxoamkmpf[address] [place], [place] [address]Dr. Devin Suresh URINE MICROSCOPIC ONLYon BACTERIA TRACE Abnormal NONE SEEN The [facility] Comment on above: Performed By: #### REAGAN STARRRO ####[facility] Xzrejgzpez[address] [place], [place] [address]Dr. Devin Suresh Bacteria identified Cx Nom (U) INDICATED Normal The [facility] Comment on above: Performed By: #### REAGAN STARRRO ####[facility] Yfiobjnwvd[address]27[address] [place], [place] [address]Dr. Devin Suresh CAST NONE SEEN Normal NONE SEEN The [facility] Comment on above: Performed By: #### GEORGE STARRICRO ####[facility] Tzsgiwmrgl[address] [place], [place] [address]Dr. Devin Suresh Crystals LM Nom (Urine sed) NONE SEEN Normal NONE SEEN The [facility] Comment on above: Performed By: #### E ALEJANDRO UMICRO ####[facility] Pbzsozxsfz37[address] [place] [address]Dr. Devin Suresh Epithelial cells LM Ql (Urine sed) RARE Normal NONE SEEN /RARE The [facility] Comment on above: Performed By: #### E RUNeno UMICRO ####[facility] Ombawkfzhc[address] [place] [address]Dr. Devin Suresh MUCOUS NONE SEEN Normal NONE SEEN The [facility] Comment on above: Performed By: #### E RUNeno UMICRO ####[facility] Gxlnscmozb34[address] [place], [place] [address]Dr. Devin Suresh RBC 0-2 Normal 0-2 The [facility] Comment on above: Performed By: #### Bud RUNeno UMICRO ####[facility] Wuddgjkoxk2[address] [place], [place] [address]Dr. Devin Suresh WBC NONE SEEN Normal NONE SEEN The [facility] Comment on above: Performed By: #### Bud ALLEN UMICRO ####[facility] Sqjlvjlkso[address] [place], [place] [address]Dr. Devin Suresh YEAST PRESENT Abnormal NONE SEEN The [facility] Comment on above: Performed By: #### E RUNeno UMICRO ####[facility] Kagmrkaffb7[address] [place], [place] [address]Dr. Devin Suresh XR CHEST 1 Von 08-02-2022 XR CHEST 1 V Normal The [facility] XR FOOT LT MIN 3 VIEWSon XR FOOT LT MIN 3 VIEWS Normal The [facility] BLOOD CULTURE ID PANELon A. baumannii Not detected Normal NOT DETECTED The [facility] Comment on above: Performed By: #### B CID2 ####[facility] Hpyqbihaja[address] [place], [place] [address]Dr. Devin Suresh Bacteriodes fragilis Not detected Normal NOT DETECTED The [facility] Comment on above: Performed By: #### B CID2 ####[facility] Bwokvkopah[address] [place], [place] [address]Dr. Yilan Suresh BCID CONTROLS PASSED Normal The [facility] Comment on above: Performed By: #### B CID2 ####[facility] [address]beeaxnr[address] [place] [id number]. Yiemily Suresh BCIDBTHD BLOOD CULTURE BOTTLE INFORMATION Normal The [facility] Comment on above: Performed By: #### B CID2 ####[facility] Rsbaxkicob[address] [place] [id number]. Yiemily Suresh BCIDHD1 ANTIMICROBIAL RESIST ANCE GENES [facility] Comment on above: Performed By: #### B CID2 ####[facility] Vzqeuipzmg67[address] [place] [address]Dr. Yilan Suresh BCIDHD2 SEE BELOW [facility] Comment on above: Result Comment: Note : Antimicrobial resitance can occur via multiple mechanisms. A Not Detected result for the [employer] antomicrobial resistance gene assays does not indicate antimicrobial susceptibility. Subculturing is required for species identification and susceptibility testing of isolates. Performed By: #### B CID2 ####[facility] Yojkvpgaok4[address] [place] [address]Dr. Yiemily Suresh BCIDHD3 Positive [facility] Comment on above: Performed By: #### B CID2 ####[facility] Miupvjiqsi[address] [place], [place] [address]Dr. Yiemily Suresh BCIDHD4 Negative [facility] Comment on above: Performed By: #### B CID2 ####[facility] Szupgzxqcd[address] [place] [address]Dr. Yiemily Suresh BCIDHD5 YEAST Normal The [facility] Comment on above: Performed By: #### B CID2 ####[facility] Ihteyfkwdt6200 [place] [address]Dr. Yilan Suresh Bottle Set: Set 2 Normal The [facility] Comment on above: Performed By: #### B CID2 ####[facility] Dustukzwon36[address] [place] [address]Dr. Yilan Suresh Bottle: Anaerobic Normal [facility] Comment on above: Performed By: #### B CID2 ####[facility] Zhgvhlnfgq0[address] [place], [place] [id number]. Yilan Suresh C. neoformans/gattii Not detected Normal NOT DETECTED The [facility] Comment on above: Performed By: #### B CID2 ####[facility] Uvyoyblgsp[address] [place], [place] [address]Dr. Yilan Suresh Jackelyn albicans Not detected Normal NOT DETECTED The [facility] Comment on above: Performed By: #### B CID2 ####[facility] Pxjvlrlooa4[address] [place], [place] [address]Dr. Yilan Suresh Jackelyn auris Not detected Normal NOT DETECTED The [facility] Comment on above: Performed By: #### B CID2 ####[facility] Wsqmogbncl7[address] [place], [place] [address]Dr. Yilan Suresh Jackelyn glabrata Not detected Normal NOT DETECTED The [facility] Comment on above: Performed By: #### B CID2 ####[facility] Qdftdvrwav3[address] [place], [place] [address]Dr. Yilan [facility] Jackelyn Krusei Not detected Normal NOT DETECTED The [facility] Comment on above: Performed By: #### B CID2 ####[facility] Yaqlqupctl2104[address] [place], [place] [address]Dr. Yilan Suresh Jackelyn Parapsilosis Not detected Normal NOT DETECTED The [facility] Comment on above: Performed By: #### B CID2 ####[facility] Crxlonblvc446[address] [place], [place] [address]Dr. Yilan [facility] Jackelyn Tropicalis Not detected Normal NOT DETECTED The [facility] Comment on above: Performed By: #### B CID2 ####[facility] Qmvfuptaeg8[address] [place], [place] [address]Dr. Devin Suresh CTX-M Resistant Gene Not Applicable Normal NOT DETECTED The [facility] Comment on above: Performed By: #### B CID2 ####[facility] Lawtphwocu[address] [place], [place] [address]Dr. Yilan Suresh E. Cloacae complex Not detected Normal NOT DETECTED The [facility] Comment on above: Performed By: #### B CID2 ####[facility] Pgutxfkgoi4037[address] [place], [place] [address]Dr. Yilan Suresh E. faecalis Not detected Normal NOT DETECTED The [facility] Comment on above: Performed By: #### B CID2 ####[facility] Dggwkixtib3083[address] [place], [place] [address]Dr. Devin Suresh E. faecium Not detected Normal NOT DETECTED The [facility] Comment on above: Performed By: #### B CID2 ####[facility] Pjzgteycfu3516[address] [place], [place] [address]Dr. Yilan Suresh Enterobacteriaceae Not detected Normal NOT DETECTED The [facility] Comment on above: Performed By: #### B CID2 ####[facility] Sfhbiipbrn[address] [place], [place] [address]Dr. Devin Suresh Escherichia coli Not detected Normal NOT DETECTED The [facility] Comment on above: Performed By: #### B CID2 ####[facility] Sqkwbbnebe8196[address] [place], [place] [address]Dr. Devin Suresh H. influenzae Not detected Normal NOT DETECTED The [facility] Comment on above: Performed By: #### B CID2 ####[facility] Ealexuwwso9[address] [place], [place] [address]Dr. Devin Suresh IMP Resistant Gene Not Applicable Normal NOT DETECTED The [facility] Comment on above: Performed By: #### B CID2 ####[facility] Pvonwfqkmt8854[address] [place], [place] [address]Dr. Devin Suresh K. oxytoca Not detected Normal NOT DETECTED The [facility] Comment on above: Performed By: #### B CID2 ####[facility] Ojlzkthqjp5057[address] [place], [place] [address]Dr. Yiemily Suresh K. pneumoniae Not detected Normal NOT DETECTED The [facility] Comment on above: Performed By: #### B CID2 ####[facility] Vnwqonsyiw[address] [place], [place] [address]Dr. Yilan Suresh Klebsiella aerogenes Not detected Normal NOT DETECTED The [facility] Comment on above: Performed By: #### B CID2 ####[facility] Shyuxhjemc[address] [place], [place] [address]Dr. Devin Suresh KPC Resistant Gene Not Applicable Normal NOT DETECTED The [facility] Comment on above: Performed By: #### B CID2 ####[facility] Ifuwjvmckm582[address] [place], [place] [address]Dr. Devin Suresh List. monocytogenes Not detected Normal NOT DETECTED The [facility] Comment on above: Performed By: #### B CID2 ####[facility] Kkezhxlipu0535[address] [place], [place] [address]Dr. Devin Suresh Mcr-1 Resistant Gene Not Applicable Normal NOT DETECTED The [facility] Comment on above: Performed By: #### B CID2 ####[facility] Ykinyeeawp1827[address] [place], [place] [address]Dr. Devin Suresh mecA/C Not Applicable Normal NOT DETECTED The [facility] Comment on above: Performed By: #### B CID2 ####[facility] Zypbvfxhyi797[address] [place], [place] [address]Dr. Devin Suresh mecA/C MREJ Not Applicable Normal NOT DETECTED The [facility] Comment on above: Performed By: #### B CID2 ####[facility] Znpuolxghp9715[address] [place], [place] [address]Dr. Devin Suresh N. meningitidis Not detected Normal NOT DETECTED The [facility] Comment on above: Performed By: #### B CID2 ####[facility] Mdrwiyimrd9766[address] [place], [place] [address]Dr. Devin Suresh NDM Resistant Gene Not Applicable Normal NOT DETECTED The [facility] Comment on above: Performed By: #### B CID2 ####[facility] Tvvzxgpbvf44[address] [place], [place] [address]Dr. Devin Suresh Oxa-48-like Not Applicable Normal NOT DETECTED The [facility] Comment on above: Performed By: #### B CID2 ####[facility] Cdwalkvmze985[address] [place], [place] [address]Dr. Devin Suresh Proteus Not detected Normal NOT DETECTED The [facility] Comment on above: Performed By: #### B CID2 ####[facility] Trvnylzwik7[address] [place], [place] [address]Dr. Devin Suresh Pseud. aeruginosa Not detected Normal NOT DETECTED The [facility] Comment on above: Performed By: #### B CID2 ####[facility] Cbsxrkqsdt68[address] [place], [place] [address]Dr. Devin Suresh S. maltophilia Not detected Normal NOT DETECTED The [facility] Comment on above: Performed By: #### B CID2 ####[facility] Lpjlomkobf[address] [place], [place] [address]Dr. Devin Suresh Salmonella Not detected Normal NOT DETECTED The [facility] Comment on above: Performed By: #### B CID2 ####[facility] Lfibsnqnuf12[address] [place], [place] [address]Dr. Devin Suresh Seratia marcescens Not detected Normal NOT DETECTED The [facility] Comment on above: Performed By: #### B CID2 ####[facility] Irpcwaiwgd[address] [place], [place] [address]Dr. Devin Suresh Site: RAC Normal [facility] Comment on above: Performed By: #### B CID2 ####[facility] Zeylqusgoe[address] [place], [place] [address]Dr. Devin Suresh Staph. aureus Not detected Normal NOT DETECTED [facility] Comment on above: Performed By: #### B CID2 ####[facility] Cpbprfyddd468[address] [place], [place] [address]Dr. Devin Suresh Staph. epidermidis Not detected Normal NOT DETECTED [facility] Comment on above: Performed By: #### B CID2 ####[facility] Dsfcnjkxid70[address] [place], [place] [address]Dr. Devin Suresh Staph. lugdunensis Not detected Normal NOT DETECTED [facility] Comment on above: Performed By: #### B CID2 ####[facility] Nfvzzkbhdg18[address] [place], [place] [address]Dr. Devin Suresh Staphylococcus Not detected Normal NOT DETECTED [facility] Comment on above: Performed By: #### B CID2 ####[facility] Oeslgakeqi87[address] [place], [place] [address]Dr. Devin Suresh Strep. agalactiae Not detected Normal NOT DETECTED [facility] Comment on above: Performed By: #### B CID2 ####[facility] Gasfyiwcmb7186[address] [place], [place] [address]Dr. Devin Suresh Strep. pneumoniae Not detected Normal NOT DETECTED [facility] Comment on above: Performed By: #### B CID2 ####[facility] Jcwmmhywzw20[address] [place], [place] [address]Dr. Devin Suresh Strep. pyogenes Not detected Normal NOT DETECTED [facility] Comment on above: Performed By: #### B CID2 ####[facility] Ymdydrfsia12[address] [place], [place] [address]Dr. Devin Suresh Streptococcus Not detected Normal NOT DETECTED [facility] Comment on above: Performed By: #### B CID2 ####[facility] Ufyobsgonb2763[address] [place], [place] [address]Dr. Devin Suresh Rich/B Resist. Gene Not Applicable Normal NOT DETECTED [facility] Comment on above: Performed By: #### B CID2 ####[facility] Dxhaexwmzs727[address] [place], [place] [address]Dr. Devin Suresh VIM Resistant Gene Not Applicable Normal NOT DETECTED [facility] Comment on above: Performed By: #### B CID2 ####[facility] Vpdufvdqni9[address] [place], [place] [address]Dr. Devin Suresh CBC AUTO DIFFon 07-30-2022 BASO # 0.0 103/ul Normal 0.0-0.1 [facility] Comment on above: Performed By: #### C BC ####[facility] Lothfibmwx13[address] [place], [place] [address]Dr. Devin Kerwin Basophils/100 WBC (Bld) 0.5 % Normal 0.2-2.0 [facility] Comment on above: Performed By: #### C BC ####[facility] Icpiimmbdv59[address] [place], [place] [address]Dr. Devin Suresh EO # 0.1 103/ul Normal 0.0-0.7 [facility] Comment on above: Performed By: #### C BC ####[facility] Pjsryyuyyg2325[address] [place], [place] [address]Dr. Devin Suresh Eosinophils/100 WBC (Bld) 2.3 % Normal 0.9-7.0 [facility] Comment on above: Performed By: #### C BC ####[facility] Ph[address]qumjhbf16[address] [place] [id number]. Devin Suresh Erythrocyte distribution width (RBC) [Ratio] 13.4 % Normal 11.0-15.0 [facility] Comment on above: Performed By: #### C BC ####[facility] Exjujdhiov9[address] [place] [id number]. Devin Suresh Hematocrit (Bld) [Volume fraction] 36.9 % Normal 36.0-48.0 [facility] Comment on above: Performed By: #### C BC ####[facility] Xtcjtfqhim4719 [place] [address]Dr. Devin Suresh Hemoglobin (Bld) [Mass/Vol] 12.9 g/dL Normal 12.0-16.0 [facility] Comment on above: Performed By: #### C BC ####[facility] Dvrrjxdxkc3137 [place] [address]Dr. Devin Suresh IG # 0.02 10e3/ul Normal 0.00-0.03 [facility] Comment on above: Performed By: #### C BC ####[facility] Fapkghdfda36[address] [place] [address]Dr. Devin Suresh IG % 0.4 % Normal 0.0-0.5 [facility] Comment on above: Performed By: #### C BC ####[facility] Brltgbxgkf2657 [place] [address]Dr. Devin Suresh LYMPH # 0.9 103/ul Critically low 1.2-3.8 [facility] Comment on above: Performed By: #### C BC ####[facility] Aqldwywcow9188 [place] [address]Dr. Devin Suresh Lymphocytes/100 WBC (Bld) 16.4 % Critically low 20.5-60.0 [facility] Comment on above: Performed By: #### C BC ####[facility] Lrmcgsvwln2336 [place] [address]Dr. Devin Suresh MANUAL DIFF REQ NO Normal [facility] Comment on above: Performed By: #### C BC ####[facility] Raiomjsmlg7909 [place] [id number]. Devin Suresh MCH (RBC) [Entitic mass] 30.9 pg Normal 26.7-34.0 [facility] Comment on above: Performed By: #### C BC ####[facility] Mewvexotzm4866 [place] [id number]. Devin Suresh MCHC (RBC) [Mass/Vol] 35.0 g/dL Normal 29.9-35.2 [facility] Comment on above: Performed By: #### C BC ####[facility] Uswarntmnq9749 [place] [id number]. Devin Suresh MCV (RBC) [Entitic vol] 88.3 fL Normal 81.0-99.0 [facility] Comment on above: Performed By: #### C BC ####[facility] Stpzpceiie4[address] [place], [place] [address]Dr. Devin Suresh MONO # 0.4 103/ul Normal 0.3-0.8 [facility] Comment on above: Performed By: #### C BC ####[facility] Mfbgmaabyj9059 [place] [address]Dr. Devin Suresh Monocytes/100 WBC (Bld) 6.9 % Normal 1.7-12.0 [facility] Comment on above: Performed By: #### C BC ####[facility] Zwigbdytxu6[address] [place], [place] [address]Dr. Tishemily Suresh NEUT # 4.2 103/ul Normal 1.4-6.5 [facility] Comment on above: Performed By: #### C BC ####[facility] Gfruidlure[address] [place], [place] [id number]. Devin Suresh Neutrophils/100 WBC (Bld) 73.5 % Normal 43.0-75.0 [facility] Comment on above: Performed By: #### C BC ####[facility] Mmnpwjzvon889[address] [place], [place] [address]Dr. Devin Suresh Platelet mean volume (Bld) [Entitic vol] 8.6 fL Critically low 9.5-13.5 [facility] Comment on above: Performed By: #### C BC ####[facility] Upizdlskbr7133 [place], [place] [address]Sz. Devin Suresh PLT 290 103/ul Normal 150-450 [facility] Comment on above: Performed By: #### C BC ####[facility] Ukyuvegxgt0337 [place], [place] [address]Ry. Devin Suresh RBC 4.18 106/ul Critically low 4.20-5.40 [facility] Comment on above: Performed By: #### C BC ####[facility] Dajeyhmapm5724 [place], [place] [address]Oy. Devin Suresh WBC 5.7 103/ul Normal 4.0-11.0 [facility] Comment on above: Performed By: #### C BC ####[facility] Prllwlqrnl8954 [place], [place] [address]Pf. Devin Suresh CULTURE BLOODon 07-30-2022 Microscopic examination of blood, culture Culture Observations: NO GROWTH AT 5 DAYS. Normal [facility] Comment on above: Performed By: #### B LDCX1 ####[facility] Qlkvgnxkpi5552 [place], [place] [address]Yn. Devin Suresh [facility]on SARS-CoV-2 (COVID-19) RNA EBONIE+probe Ql (Unsp spec) Not detected Normal NOT DETECTED [facility] Comment on above: Result Comment: When [...] for this test is supported by the [place] of Health and Human Service's declaration that [...] longer be used). Performed By: #### C VDTB ####[facility] Gjlceazkxn[address] [place], [place] [address]Dr. Devin Suresh LACTATE/LACTIC ACIDon 2022 Lactate [Moles/Vol] 1.2 mmol/L Normal 0.4-1.9 [facility] Comment on above: Performed By: #### L ACT ####[facility] Mffsocutot9094[address] [place], [place] [address]Dr. Devin Suresh PROF 14(COMP METB)on 023 Albumin [Mass/Vol] 4.1 g/dL Normal 3.4-5.0 [facility] Comment on above: Performed By: #### C MP ####[facility] Ezplaeudzk4379[address] [place], [place] [address]Dr. Devin Suresh Albumin/Globulin [Mass ratio] 1.2 {ratio} Normal [facility] Comment on above: Performed By: #### C MP ####[facility] Yevjnhuepx7200[address] [place], [place] [address]Dr. Devin Suresh ALP [Catalytic activity/Vol] 114 U/L Normal 46-116 [facility] Comment on above: Performed By: #### C MP ####[facility] Jdudoldnbv99[address] [place], [place] [address]Dr. Devin Suresh ALT [Catalytic activity/Vol] 20 U/L Normal 14-59 [facility] Comment on above: Performed By: #### C MP ####[facility] Btxtousxgo498250 [address] [place], [place] [address]Dr. Devin Suresh Anion gap [Moles/Vol] 13.5 mmol/L Normal [facility] Comment on above: Performed By: #### C MP ####[facility] Beytwvrdxo1573[address] [place], [place] [address]Dr. Devin Suresh AST [Catalytic activity/Vol] 12 U/L Critically low 15-37 [facility] Comment on above: Performed By: #### C MP ####[facility] Tgawkxffpt3666 [place] [address]Dr. Devin Suresh Bilirubin [Mass/Vol] 0.4 mg/dL Normal 0.2-1.0 [facility] Comment on above: Performed By: #### C MP ####[facility] Izvjpxgrap7103 [place] [address]Dr. Devin Suresh Calcium [Mass/Vol] 9.3 mg/dL Normal 8.5-10.1 [facility] Comment on above: Performed By: #### C MP ####[facility] Jqxqixgvdg3868 [place] [address]Dr. Devin Suresh Chloride [Moles/Vol] 105 mmol/L Normal 98-107 [facility] Comment on above: Performed By: #### C MP ####[facility] Hxumyjutow4884 [place] [address]Dr. Devin Suresh CO2 [Moles/Vol] 27.3 mmol/L Normal 21.0-32.0 [facility] Comment on above: Performed By: #### C MP ####[facility] Lskybfnpos7809[address] [place], [place] [address]Dr. Devin Kerwin Creatinine [Mass/Vol] 0.90 mg/dL Normal 0.55-1.02 [facility] Comment on above: Performed By: #### C MP ####[facility] Qvkrliirww6461 [place] [address]Dr. Devin Kerwin EGFR-AF LUXEMBOURGER >60 Normal >=60 [facility] Comment on above: Performed By: #### C MP ####[facility] Gcsltqmtri1478 [place] [address]Dr. Devin Suresh EGFR-NON AF LUXEMBOURGER >60 Normal >=60 [facility] Comment on above: Performed By: #### C MP ####[facility] Jnszhyusxq1946[address] [place], [place] [address]Dr. Devin Suresh Globulin (S) [Mass/Vol] 3.5 g/dL Normal [facility] Comment on above: Performed By: #### C MP ####[facility] Utpemrddhq[address] [place], [place] [address]Dr. Devin Suresh Glucose [Mass/Vol] 114 mg/dL Critically high 74-106 [facility] Comment on above: Performed By: #### C MP ####[facility] Kwjiybdgnp3715 [place] [address]Dr. Devin Suresh Potassium [Moles/Vol] 3.8 mmol/L Normal 3.5-5.1 [facility] Comment on above: Performed By: #### C MP ####[facility] Ubvhgijlnx4603 [place] [address]Dr. Devin Suresh Protein [Mass/Vol] 7.6 g/dL Normal 6.4-8.2 [facility] Comment on above: Performed By: #### C MP ####[facility] Vskpngmkbp6340[address] [place], [place] [address]Dr. Devin Suresh Sodium [Moles/Vol] 142 mmol/L Normal 136-145 [facility] Comment on above: Performed By: #### C MP ####[facility] Pagzxprjlb664550 [address] [place], [place] [address]Dr. Devin Suresh Urea nitrogen [Mass/Vol] 12.0 mg/dL Normal 7.0-18.0 [facility] Comment on above: Performed By: #### C MP ####[facility] Qvldgkagqb832950 [address] [place], [place] [address]Dr. Devin Suresh Urea nitrogen/Creatinine [Mass ratio] 13.3 mg/mg Normal [facility] Comment on above: Performed By: #### C MP ####[facility] Nfnoavusce7978[address] [place], [place] [address]Dr. Devin Suresh XR CHEST 1 Von 07-30-2022 XR CHEST 1 V Normal [facility] XR FOOT LT MIN 3 VIEWSon XR FOOT LT MIN 3 VIEWS Normal [facility] ACETAMINOPHENon 07-10-2022 Acetaminophen [Mass/Vol] ug/mL Critically low 10.0-30.0 [facility] Comment on above: Performed By: #### A CETRHEA ####[facility] Apeqsbpflm9905[address] [place], [place] [address]Dr. Devin Kerwin CBC AUTO DIFFon 07-10-2022 BASO # 0.1 103/ul Normal 0.0-0.1 [facility] Comment on above: Performed By: #### C BC ####[facility] Avjuckbchg8810 [place] [address]Dr. Devin Suresh Basophils/100 WBC (Bld) 0.8 % Normal 0.2-2.0 [facility] Comment on above: Performed By: #### C BC ####[facility] Shlbjgvmru539[address] [place], [place] [address]Dr. Tishemily Kerwin EO # 0.2 103/ul Normal 0.0-0.7 [facility] Comment on above: Performed By: #### C BC ####[facility] Pksfjkmcxo[address] [place], [place] [address]Dr. Devin Kerwin Eosinophils/100 WBC (Bld) 1.6 % Normal 0.9-7.0 [facility] Comment on above: Performed By: #### C BC ####[facility] Buehohrnim69[address] [place], [place] [address]Dr. Devin Suresh Erythrocyte distribution width (RBC) [Ratio] 12.9 % Normal 11.0-15.0 [facility] Comment on above: Performed By: #### C BC ####[facility] Ljanaquerd3370[address] [place], [place] [address]Dr. Devin Suresh Hematocrit (Bld) [Volume fraction] 35.5 % Critically low 36.0-48.0 [facility] Comment on above: Performed By: #### C BC ####[facility] Evnbpsdecq935550 [address] [place], [place] [address]Dr. Tishemily Suresh Hemoglobin (Bld) [Mass/Vol] 12.4 g/dL Normal 12.0-16.0 [facility] Comment on above: Performed By: #### C BC ####[facility] Foeivizuee6953[address] [place], [place] [address]Dr. Devin Suresh IG # 0.03 10e3/ul Normal 0.00-0.03 [facility] Comment on above: Performed By: #### C BC ####[facility] Djjynqwpfv8615 [place] [address]Dr. Tishemily Suresh IG % 0.3 % Normal 0.0-0.5 [facility] Comment on above: Performed By: #### C BC ####[facility] Edhukhkyxk1825[address] [place], [place] [address]Dr. Devin Suresh LYMPH # 1.8 103/ul Normal 1.2-3.8 [facility] Comment on above: Performed By: #### C BC ####[facility] Heupmumvsm[address] [place], [place] [address]Dr. Devin Suresh Lymphocytes/100 WBC (Bld) 19.5 % Critically low 20.5-60.0 [facility] Comment on above: Performed By: #### C BC ####[facility] Tgjyiowmpl339[address] [place], [place] [address]Dr. Devin Suresh MANUAL DIFF REQ NO Normal [facility] Comment on above: Performed By: #### C BC ####[facility] Ibeytznkvn4608[address] [place], [place] [address]Dr. Devin Kerwin MCH (RBC) [Entitic mass] 31.2 pg Normal 26.7-34.0 [facility] Comment on above: Performed By: #### C BC ####[facility] Baaowvxzgm3378[address] [place], [place] [address]Dr. Devin Kerwin MCHC (RBC) [Mass/Vol] 34.9 g/dL Normal 29.9-35.2 [facility] Comment on above: Performed By: #### C BC ####[facility] Unbolicoua6196[address] [place], [place] [address]DrMaris Suresh MCV (RBC) [Entitic vol] 89.2 fL Normal 81.0-99.0 [facility] Comment on above: Performed By: #### C BC ####[facility] Nvewgviqql101[address] [place], [place] [address]DrMaris Suresh MONO # 0.5 103/ul Normal 0.3-0.8 [facility] Comment on above: Performed By: #### C BC ####[facility] Thxgpjkgdp1820[address] [place], [place] [address]Dr. Devin Suresh Monocytes/100 WBC (Bld) 5.0 % Normal 1.7-12.0 [facility] Comment on above: Performed By: #### C BC ####[facility] Esyqusihiy6450 [place] [address]Dr. Devin Suresh NEUT # 6.8 103/ul Critically high 1.4-6.5 [facility] Comment on above: Performed By: #### C BC ####[facility] Kmkjlfwxtm1946 [place] [address]Dr. Devin Suresh Neutrophils/100 WBC (Bld) 72.8 % Normal 43.0-75.0 [facility] Comment on above: Performed By: #### C BC ####[facility] Wqntnzzioa432350 [address] [place], [place] [address]Dr. Devin Suresh Platelet mean volume (Bld) [Entitic vol] 8.6 fL Critically low 9.5-13.5 [facility] Comment on above: Performed By: #### C BC ####[facility] Hfplbcpmqm9954[address] [place], [place] [address]Dr. Devin Suresh PLT 303 103/ul Normal 150-450 [facility] Comment on above: Performed By: #### C BC ####[facility] Nnowznatif4720[address] [place], [place] [address]Dr. Devin Suresh RBC 3.98 106/ul Critically low 4.20-5.40 [facility] Comment on above: Performed By: #### C BC ####[facility] Q[address]qkhdlpv[address] [place], [place] [address]Dr. Devin Suresh WBC 9.3 103/ul Normal 4.0-11.0 [facility] Comment on above: Performed By: #### C BC ####[facility] [address]yghzxfgwj[address] [place], [place] [address]Dr. Devin Kerwin DRUG SCREEN RAPID (URINE)on 07-10-2022 AMP Negative Normal NEGATIVE [facility] Comment on above: Performed By: #### D RUGRPD ####[facility] Cjjxnihjfj8[address] [place], [place] [address]Dr. Devin Suresh BAR Negative Normal NEGATIVE [facility] Comment on above: Performed By: #### D RUGRPD ####[facility] Jqeibjuchu8486 [place] [id number]. Tishemily Suresh BUP Negative Normal NEGATIVE [facility] Comment on above: Performed By: #### D RUGRPD ####[facility] Wukylnomrh5694 [place] [id number]. Devin Suresh BZO Negative Normal NEGATIVE [facility] Comment on above: Performed By: #### D RUGRPD ####[facility] Bataswtupu6429 [place] [id number]. Devin Suresh KATHY Negative Normal NEGATIVE [facility] Comment on above: Performed By: #### D RUGRPD ####[facility] Rjyrpgywtf[address] [place], [place] [id number]. Devin Suresh CUT-OFFS SEE BELOW Normal [facility] Comment on above: Result Comment: AMP (Amphetamine): 500ng/mL, BAR (Barbituates): 200 ng/mL, BZO (Benzodiazepines): 150 ng/mL, BUP (Buprenorphine): 10 ng/mL, KATHY (Cocaine): 150 ng/mL, mAMP (Methamphetamine): 500 ng/mL, MTD (Methadone): 200 ng/mL, OPI (Opiates): 100 ng/mL, OXY (Oxycodone): 100 ng/mL, PCP (Phencyclidine): 25 ng/mL, PPX (Propoxyphene): 300 ng/mL, THC (Cannabinoids): 50 ng/mL, TCA (Trycyclic Antidepressants): 300 ng/mL Performed By: #### D RUGRPD ####[facility] Jjvxbialgf8194 [place] [phone]. Devin Suresh DRUG CUT HEADER DRUG CLASS TEST SYST EM CUT-OFF CONCENTRATIONS ARE FOLLOWS: Normal [facility] Comment on above: Performed By: #### D RUGRPD ####[facility] Qnyubeydyc5056 [place] [phone]. Devin Suresh mAMP Negative Normal NEGATIVE [facility] Comment on above: Performed By: #### D RUGRPD ####[facility] Eubrortfzo6692 [place] [id number]. Devin Suresh MTD Negative Normal NEGATIVE [facility] Comment on above: Performed By: #### D RUGRPD ####[facility] Coxbyuufsz0588 [place] [address]Dr. Yiemily Suresh OPI Negative Normal NEGATIVE [facility] Comment on above: Performed By: #### D RUGRPD ####[facility] Psuhzgbgkq3899 [place] [address]Dr. Yiemily Suresh OXY Negative Normal NEGATIVE [facility] Comment on above: Performed By: #### D RUGRPD ####[facility] Bflrvcrgnf[address] [place], [place] [address]Dr. Devin Kerwin PCP Negative Normal NEGATIVE [facility] Comment on above: Performed By: #### D RUGRPD ####[facility] Tdqbkaluat8139[address] [place], [place] [address]Dr. Tishemily Suresh PPX Negative Normal NEGATIVE [facility] Comment on above: Performed By: #### D RUGRPD ####[facility] Jxjrannrqo30[address] [place], [place] [address]Dr. Devin Kerwin TCA Positive Abnormal NEGATIVE The [facility] Comment on above: Performed By: #### D RUGRPD ####[facility] Xzfctmzhil[address] [place], [place] [address]Dr. Devin Kerwin THC Negative Normal NEGATIVE The [facility] Comment on above: Performed By: #### D RUGRPD ####[facility] Qzqvezjehp468[address] [place], [place] [address]Dr. Devin Kerwin ER URINE PROFILEon 3 Bilirubin Ql (U) Negative Normal NEGATIVE The [facility] Comment on above: Performed By: #### E RUR ####[facility] Rnlradvicw7574[address] [place], [place] [address]Dr. Devin Suresh Clarity (U) CLEAR Normal CLEAR The [facility] Comment on above: Performed By: #### E RUR ####[facility] Iqwvnsagzx380[address] [place], [place] [address]Dr. Devin Suresh Color (U) LT. YELLOW Normal YELLOW The [facility] Comment on above: Performed By: #### E RUR ####[facility] Ndjmrgunuw912[address] [place], [place] [address]Dr. Devin VELAZQUEZ A micrscopic examina tion will be performed if indicated. Normal The [facility] Comment on above: Performed By: #### E RUR ####[facility] Kktoxmiodx97[address] [place], [place] [address]Dr. Devin Suresh Glucose Ql (U) 500 mg/dl Abnormal NEGATIVE The [facility] Comment on above: Performed By: #### E RUR ####[facility] Snpoctxkay6266[address] [place], [place] [address]Dr. Devin Suresh Hemoglobin Ql (U) TRACE-INTACT Abnormal NEGATIVE [facility] Comment on above: Performed By: #### E RUR ####[facility] Sslqednhdm09[address] [place], [place] [address]Dr. Devin Suresh Ketones Ql (U) Negative Normal NEGATIVE [facility] Comment on above: Performed By: #### E RUR ####[facility] Roybndlpio285[address] [place], [place] [address]Dr. Devin Suresh LEUKOCYTES Negative Normal NEGATIVE [facility] Comment on above: Performed By: #### E RUR ####[facility] Ycjiesxotm585[address] [place], [place] [address]Dr. Devin Suresh Nitrite Ql (U) Negative Normal NEGATIVE [facility] Comment on above: Performed By: #### E RUR ####[facility] Cqrlednxiz9820[address] [place], [place] [address]Dr. Devin Suresh pH (U) 6.0 [pH] Normal 5-9 [facility] Comment on above: Performed By: #### E RUR ####[facility] Nxmxfirjqd8911[address] [place], [place] [address]Dr. Devin Suresh SPEC GRAVITY 1.025 Normal 1.005-<=1.0 25 [facility] Comment on above: Performed By: #### E RUR ####[facility] Zcfsmzpynw693[address] [place], [place] [address]Dr. Devin Suresh UA PROTEIN TRACE Normal NEGATIVE/ TRACE [facility] Comment on above: Performed By: #### E RUR ####[facility] Mzruspnxmz[address] [place] [address]Dr. Devin Suresh UR MICRO IND NOT INDICATED Normal [facility] Comment on above: Performed By: #### E RUR ####[facility] Ljdghovrlg0991 [place] [address]Dr. Devin Suresh Urobilinogen Qn (U) 0.2 {Sheyla'U}/dL Normal 0.2 - 1. 0 [facility] Comment on above: Performed By: #### E RUR ####[facility] Warcazqows9257[address] [place], [place] [address]DrMairs Suresh ETHANOL (BLD ALC)on 07-10-19 ALC NOTE NOTE: 80 mg/dl is th e legal limit for a blood alcohol level Normal [facility] Comment on above: Performed By: #### E TH ####[facility] Jvdmkpuujn109[address] [place], [place] [address]Dr. Devin Suresh Ethanol [Mass/Vol] mg/dL Normal [facility] Comment on above: Performed By: #### E TH ####[facility] Nthwjlgvqo55[address] [place], [place] [address]DrMaris Suresh PROF CHEM 8 (BAS METB)on Anion gap [Moles/Vol] 12.4 mmol/L Normal Th e [facility] Comment on above: Performed By: #### B MP ####[facility] Horsemoptd84[address] [place], [place] [address]DrMaris Suresh Calcium [Mass/Vol] 8.6 mg/dL Normal 8.5-10.1 The [facility] Comment on above: Performed By: #### B MP ####[facility] Dagtswxqiw6007[address] [place], [place] [address]DrMaris Suresh Chloride [Moles/Vol] 103 mmol/L Normal 98-107 [facility] Comment on above: Performed By: #### B MP ####[facility] Lcrbnumwzm299[address] [place], [place] [address]DrMaris Suresh CO2 [Moles/Vol] 27.5 mmol/L Normal 21.0-32.0 [facility] Comment on above: Performed By: #### B MP ####[facility] Wwbxmfuoop2315[address] [place], [place] [address]Dr. Devin Suresh Creatinine [Mass/Vol] 1.10 mg/dL Critically high 0.55-1.02 [facility] Comment on above: Performed By: #### B MP ####[facility] Nlxumjpevk29[address] [place] [address]Dr. Devin Kerwin EGFR-AF LUXEMBOURGER >60 Normal >=60 [facility] Comment on above: Performed By: #### B MP ####[facility] Mpwqytoeyk[address] [place], [place] [address]Dr. Tishemily Kerwin EGFR-NON AF LUXEMBOURGER 54 mL/min/1.73m2 Critically low >=60 [facility] Comment on above: Performed By: #### B MP ####[facility] Twgsaennol422[address] [place], [place] [address]Dr. Devin Kerwin Glucose [Mass/Vol] 253 mg/dL Critically high 74-106 T [facility] Comment on above: Performed By: #### B MP ####[facility] Lvondjpgbp4740[address] [place], [place] [address]Dr. Tishemily Suresh Potassium [Moles/Vol] 3.9 mmol/L Normal 3.5-5.1 [facility] Comment on above: Performed By: #### B MP ####[facility] Hthbkaloor9716[address] [place], [place] [address]Dr. Devin Suresh Sodium [Moles/Vol] 139 mmol/L Normal 136-145 [facility] Comment on above: Performed By: #### B MP ####[facility] Hwidjgvdfn447[address] [place], [place] [address]Dr. Devin Suresh Urea nitrogen [Mass/Vol] 18.0 mg/dL Normal 7.0-18.0 [facility] Comment on above: Performed By: #### B MP ####[facility] Tlmgequrro0795[address] [place], [place] [address]Dr. Devin Suresh Urea nitrogen/Creatinine [Mass ratio] 16.4 mg/mg Normal The [facility] Comment on above: Performed By: #### B MP ####[facility] Pjhajidsjw4580[address] [place], [place] [address]Dr. eDvin Suresh SALICYLATEon 07-10-2022 SALICYLATE <2.8 Normal <=19.9 The [facility] Comment on above: Performed By: #### A RHEA CAMPUZANO ####[facility] Litoqvvswm0464[address] [place], [place] [address]Dr. Devin Suresh CBC AUTO DIFFon 06-21-2022 BASO # 0.1 103/ul Normal 0.0-0.1 The [facility] Comment on above: Performed By: #### C BC ####[facility] Dpgcrktenn[address] [place], [place] [address]Dr. Tishemily Suresh Basophils/100 WBC (Bld) 0.8 % Normal 0.2-2.0 The [facility] Comment on above: Performed By: #### C BC ####[facility] Yaekwzwrip6[address] [place], [place] [address]Dr. Devin Suresh EO # 0.2 103/ul Normal 0.0-0.7 The [facility] Comment on above: Performed By: #### C BC ####[facility] Bxuscpwroe75[address] [place], [place] [address]Dr. Devin Suresh Eosinophils/100 WBC (Bld) 2.1 % Normal 0.9-7.0 The [facility] Comment on above: Performed By: #### C BC ####[facility] Lbgmgowdzy627[address] [place], [place] [address]Dr. Devin Suresh Erythrocyte distribution width (RBC) [Ratio] 12.6 % Normal 11.0-15.0 The [facility] Comment on above: Performed By: #### C BC ####[facility] Rdscqtajeb8096[address] [place], [place] [address]Dr. Devin Suresh Hematocrit (Bld) [Volume fraction] 34.9 % Critically low 36.0-48.0 The [facility] Comment on above: Performed By: #### C BC ####[facility] Khayvuyxhe[address] [place] [address]Dr. Devin Suresh Hemoglobin (Bld) [Mass/Vol] 12.3 g/dL Normal 12.0-16.0 The [facility] Comment on above: Performed By: #### C BC ####[facility] Lmcahzrrfu[address] [place] [address]Dr. Devin Suresh IG # 0.03 10e3/ul Normal 0.00-0.03 The [facility] Comment on above: Performed By: #### C BC ####[facility] Pibwmrqfhd7[address] [place] [address]Dr. Devin Suresh IG % 0.4 % Normal 0.0-0.5 The [facility] Comment on above: Performed By: #### C BC ####[facility] Mblxhvxrrq4064 [place] [address]Dr. Devin Suresh LYMPH # 1.7 103/ul Normal 1.2-3.8 The [facility] Comment on above: Performed By: #### C BC ####[facility] Cmckylmaqj0739 [place] [address]Dr. Devin Suresh Lymphocytes/100 WBC (Bld) 20.0 % Critically low 20.5-60.0 The [facility] Comment on above: Performed By: #### C BC ####[facility] Qvzsegglbn9990 [place] [address]Dr. Devin Suresh MANUAL DIFF REQ NO Normal [facility] Comment on above: Performed By: #### C BC ####[facility] Bhxzgwisdz8817 [place] [id number]. Devin Suresh MCH (RBC) [Entitic mass] 29.6 pg Normal 26.7-34.0 The [facility] Comment on above: Performed By: #### C BC ####[facility] T[address]fqrrscbw[address] [place], [place] [address]Dr. Devin Suresh MCHC (RBC) [Mass/Vol] 35.2 g/dL Normal 29.9-35.2 The [facility] Comment on above: Performed By: #### C BC ####[facility] Aivgzuykmf0130[address] [place], [place] [address]Dr. Devin Kerwin MCV (RBC) [Entitic vol] 83.9 fL Normal 81.0-99.0 The [facility] Comment on above: Performed By: #### C BC ####[facility] Pkxvqairuo6[address] [place] [address]Dr. Devin Kerwin MONO # 0.4 103/ul Normal 0.3-0.8 The [facility] Comment on above: Performed By: #### C BC ####[facility] Dfsfyrmwhj0855 [place] [address]Dr. Devin Suresh Monocytes/100 WBC (Bld) 5.2 % Normal 1.7-12.0 The [facility] Comment on above: Performed By: #### C BC ####[facility] Xfgwocskvc5838[address] [place], [place] [address]Dr. Tishemily Kerwin NEUT # 6.0 103/ul Normal 1.4-6.5 The [facility] Comment on above: Performed By: #### C BC ####[facility] Tztbabgqms0660[address] [place], [place] [address]Dr. Tishemily Suresh Neutrophils/100 WBC (Bld) 71.5 % Normal 43.0-75.0 The [facility] Comment on above: Performed By: #### C BC ####[facility] Apvulogrvh24[address] [place], [place] [address]Dr. Devin Suresh Platelet mean volume (Bld) [Entitic vol] 8.4 fL Critically low 9.5-13.5 The [facility] Comment on above: Performed By: #### C BC ####[facility] Eszmwzrnhf569[address] [place], [place] [address]Dr. Devin Suresh PLT 296 103/ul Normal 150-450 The [facility] Comment on above: Performed By: #### C BC ####[facility] Uercdxucnd5176 [place] [id number]. Devin Suresh RBC 4.16 106/ul Critically low 4.20-5.40 [facility] Comment on above: Performed By: #### C BC ####[facility] Utxuofpywn2225[address] [place], [place] [address]Dr. Devin Suresh WBC 8.4 103/ul Normal 4.0-11.0 [facility] Comment on above: Performed By: #### C BC ####[facility] Olcoecgtru60[address] [place] [address]DrMaris Suresh PROF 14(COMP METB)on 023 Albumin [Mass/Vol] 3.4 g/dL Normal 3.4-5.0 [facility] Comment on above: Performed By: #### C MP ####[facility] Stuvjbjfax[address] [place] [address]Dr. Devin Suresh Albumin/Globulin [Mass ratio] 1.0 {ratio} Normal [facility] Comment on above: Performed By: #### C MP ####[facility] Uphpkinfzr3904 [place] [address]Dr. Devin Suresh ALP [Catalytic activity/Vol] 108 U/L Normal 46-116 [facility] Comment on above: Performed By: #### C MP ####[facility] Cwwfnftcwe3148[address] [place], [place] [address]Dr. Devin Suresh ALT [Catalytic activity/Vol] 15 U/L Normal 14-59 [facility] Comment on above: Performed By: #### C MP ####[facility] Kdhndbemap4949[address] [place], [place] [address]Dr. Devin Suresh Anion gap [Moles/Vol] 14.6 mmol/L Normal [facility] Comment on above: Performed By: #### C MP ####[facility] Ecebhcyfxj8307[address] [place], [place] [address]Dr. Devin Suresh AST [Catalytic activity/Vol] 11 U/L Critically low 15-37 [facility] Comment on above: Performed By: #### C MP ####[facility] Vdyyatbtum[address] [place], [place] [address]DrMaris Suresh Bilirubin [Mass/Vol] 0.4 mg/dL Normal 0.2-1.0 [facility] Comment on above: Performed By: #### C MP ####[facility] Njknxrjazo073[address] [place], [place] [address]Dr. Devin Suresh Calcium [Mass/Vol] 8.8 mg/dL Normal 8.5-10.1 [facility] Comment on above: Performed By: #### C MP ####[facility] Vvcmvzuodw5530 [place] [address]Dr. Devin Kerwin Chloride [Moles/Vol] 104 mmol/L Normal 98-107 [facility] Comment on above: Performed By: #### C MP ####[facility] Myggbcubil2749[address] [place], [place] [address]Dr. Devin Kerwin CO2 [Moles/Vol] 24.2 mmol/L Normal 21.0-32.0 [facility] Comment on above: Performed By: #### C MP ####[facility] Qdhqldudek1586[address] [place], [place] [address]Dr. Devin Suresh Creatinine [Mass/Vol] 1.35 mg/dL Critically high 0.55-1.02 [facility] Comment on above: Performed By: #### C MP ####[facility] Nwijtljoaz942[address] [place], [place] [address]Dr. Devin Kerwin EGFR-AF LUXEMBOURGER 51 mL/min/1.73m2 Critically low >=60 [facility] Comment on above: Performed By: #### C MP ####[facility] Pvhjnnhxks4593[address] [place], [place] [address]Dr. Devin Kerwin EGFR-NON AF LUXEMBOURGER 42 mL/min/1.73m2 Critically low >=60 [facility] Comment on above: Performed By: #### C MP ####[facility] Eenyxopqse6056[address] [place], [place] [address]Dr. Devin Kerwin Globulin (S) [Mass/Vol] 3.5 g/dL Normal [facility] Comment on above: Performed By: #### C MP ####[facility] Cghjmbmmtr25[address] [place], [place] [address]Dr. Devin Suresh Glucose [Mass/Vol] 265 mg/dL Critically high 74-106 T [facility] Comment on above: Performed By: #### C MP ####[facility] Kmhlopcphn46[address] [place], [place] [address]Dr. Devin Suresh Potassium [Moles/Vol] 3.8 mmol/L Normal 3.5-5.1 The [facility] Comment on above: Performed By: #### C MP ####[facility] Ywoaqzihvt9996[address] [place], [place] [address]Dr. Devin Suresh Protein [Mass/Vol] 6.9 g/dL Normal 6.4-8.2 [facility] Comment on above: Performed By: #### C MP ####[facility] Rwklctxmyi[address] [place], [place] [address]Dr. Devin Kerwin Sodium [Moles/Vol] 139 mmol/L Normal 136-145 The [facility] Comment on above: Performed By: #### C MP ####[facility] Rtupeszunc8856[address] [place], [place] [address]Dr. Devin Kerwin Urea nitrogen [Mass/Vol] 23.0 mg/dL Critically high 7.0-18.0 The [facility] Comment on above: Performed By: #### C MP ####[facility] Rrbkwbcqpo[address]28[address] [place], [place] [address]Dr. Devin Kerwin Urea nitrogen/Creatinine [Mass ratio] 17.0 mg/mg Normal [facility] Comment on above: Performed By: #### C MP ####[facility] Seiijqhrje9633[address] [place], [place] [address]Dr. Devin Kerwin CBC AUTO DIFFon 06-11-2022 BASO # 0.1 103/ul Normal 0.0-0.1 The [facility] Comment on above: Performed By: #### C BC ####[facility] Mqfpfugkmi352[address] [place], [place] [address]Dr. Devin Kerwin Basophils/100 WBC (Bld) 0.7 % Normal 0.2-2.0 The [facility] Comment on above: Performed By: #### C BC ####[facility] Ezlzvxxxgf474[address] [place], [place] [address]Dr. Devin Suresh EO # 0.2 103/ul Normal 0.0-0.7 The [facility] Comment on above: Performed By: #### C BC ####[facility] Rgamyitbbr70[address] [place] [address]Dr. Devin Suresh Eosinophils/100 WBC (Bld) 2.2 % Normal 0.9-7.0 The [facility] Comment on above: Performed By: #### C BC ####[facility] Vtrtbmuhgj5767[address] [place], [place] [address]Dr. Devin Suresh Erythrocyte distribution width (RBC) [Ratio] 12.5 % Normal 11.0-15.0 The [facility] Comment on above: Performed By: #### C BC ####[facility] Jujohjiipa[address] [place], [place] [address]Dr. Devin Suresh Hematocrit (Bld) [Volume fraction] 40.2 % Normal 36.0-48.0 The [facility] Comment on above: Performed By: #### C BC ####[facility] Rxgotgadvt656[address] [place], [place] [address]Dr. Devin Suresh Hemoglobin (Bld) [Mass/Vol] 13.8 g/dL Normal 12.0-16.0 The [facility] Comment on above: Performed By: #### C BC ####[facility] Lubjrwxbwr[address] [place], [place] [address]Dr. Devin Suresh IG # 0.03 10e3/ul Normal 0.00-0.03 The [facility] Comment on above: Performed By: #### C BC ####[facility] Vmuqslmvva7[address] [place], [place] [address]Dr. Devin Suresh IG % 0.3 % Normal 0.0-0.5 The [facility] Comment on above: Performed By: #### C BC ####[facility] Lcrrgclavb[address] [place], [place] [address]Dr. Devin Suresh LYMPH # 2.7 103/ul Normal 1.2-3.8 The [facility] Comment on above: Performed By: #### C BC ####[facility] Zmircqtqcu5[address] [place], [place] [address]Dr. Devin Suresh Lymphocytes/100 WBC (Bld) 26.4 % Normal 20.5-60.0 The [facility] Comment on above: Performed By: #### C BC ####[facility] Divvvlbstv8948 [place] [address]Dr. Devin Kerwin MANUAL DIFF REQ NO Normal [facility] Comment on above: Performed By: #### C BC ####[facility] Dphnrirhna32[address] [place] [address]Dr. Devin Suresh MCH (RBC) [Entitic mass] 30.0 pg Normal 26.7-34.0 The [facility] Comment on above: Performed By: #### C BC ####[facility] Sftbdpieox9247 [place] [address]Dr. Devin Kerwin MCHC (RBC) [Mass/Vol] 34.3 g/dL Normal 29.9-35.2 The [facility] Comment on above: Performed By: #### C BC ####[facility] Llhalbcbeh9242 [place] [address]Dr. Tishemily Suresh MCV (RBC) [Entitic vol] 87.4 fL Normal 81.0-99.0 The [facility] Comment on above: Performed By: #### C BC ####[facility] Wovctxzxlq6[address] [place], [place] [address]Dr. Devin Kerwin MONO # 0.6 103/ul Normal 0.3-0.8 The [facility] Comment on above: Performed By: #### C BC ####[facility] Kjnbeisbqv[address] [place], [place] [address]Dr. Tishemily Suresh Monocytes/100 WBC (Bld) 5.8 % Normal 1.7-12.0 The [facility] Comment on above: Performed By: #### C BC ####[facility] Hharrrwabg[address] [place] [address]Dr. Devin Suresh NEUT # 6.7 103/ul Critically high 1.4-6.5 [facility] Comment on above: Performed By: #### C BC ####[facility] Muxypgkflo4747[address] [place], [place] [address]Dr. Devin Suresh Neutrophils/100 WBC (Bld) 64.6 % Normal 43.0-75.0 The [facility] Comment on above: Performed By: #### C BC ####[facility] Nfvcmoxvbn3392 [place] [address]Dr. Devin Suresh Platelet mean volume (Bld) [Entitic vol] 8.7 fL Critically low 9.5-13.5 [facility] Comment on above: Performed By: #### C BC ####[facility] Ikcbzdpbyk74[address] [place] [id number]. Devin Kerwin PLT 345 103/ul Normal 150-450 [facility] Comment on above: Performed By: #### C BC ####[facility] Gqbjackyxh2568 [place] [address]Dr. Tishemily Kerwin RBC 4.60 106/ul Normal 4.20-5.40 [facility] Comment on above: Performed By: #### C BC ####[facility] Titehamiqc[address] [place], [place] [address]Dr. Tishemily Kerwin WBC 10.3 103/ul Normal 4.0-11.0 [facility] Comment on above: Performed By: #### C BC ####[facility] Ndevvegqma[address] [place] [address]Dr. Devin Suresh CT HEAD WO CONon 06-11-2022 CT HEAD WO CON Normal [facility] LACTATE/LACTIC ACIDon 2022 Lactate [Moles/Vol] 1.9 mmol/L Normal 0.4-1.9 [facility] Comment on above: Performed By: #### L ACT ####[facility] Dprwkhurvv[address] [place], [place] [address]Dr. Devin Suresh POINT OF CARE GLUCOSEon 05-25 Glucose [Mass/Vol] 245 mg/dL Critically high 74-106 [facility] Comment on above: Performed By: #### P OCGLUC ####[facility] Xgkqvjhqbw[address] [place], [place] [address]Dr. Devin Suresh PROF 14(COMP METB)on 023 Albumin [Mass/Vol] 3.7 g/dL Normal 3.4-5.0 [facility] Comment on above: Performed By: #### C MP, HSTROPN ####[facility] Hlfcwvyixy[address] [place] [address]Dr. Devin Suresh Albumin/Globulin [Mass ratio] 1.0 {ratio} Normal [facility] Comment on above: Performed By: #### C STU, HSTROPN ####[facility] Iqlemtdyct[address] [place] [address]Dr. Tishemily Suresh ALP [Catalytic activity/Vol] 123 U/L Critically high 46-116 [facility] Comment on above: Performed By: #### C STU, HSTROPN ####[facility] Fpeoaffyfy[address] [place] [address]Dr. Devin Suresh ALT [Catalytic activity/Vol] 15 U/L Normal 14-59 [facility] Comment on above: Performed By: #### C STU, HSTROPN ####[facility] Cffiyrrfpn[address] [place], [place] [address]Dr. Devin Suresh Anion gap [Moles/Vol] 12.7 mmol/L Normal [facility] Comment on above: Performed By: #### C STU, HSTROPN ####[facility] Pmokpinlnh[address] [place], [place] [address]Dr. Devin Suresh AST [Catalytic activity/Vol] 11 U/L Critically low 15-37 [facility] Comment on above: Performed By: #### C STU, HSTROPN ####[facility] Pl[address]zcwv[address] [place], [place] [address]Dr. Devin Suresh Bilirubin [Mass/Vol] 0.4 mg/dL Normal 0.2-1.0 [facility] Comment on above: Performed By: #### C STU, HSTROPN ####[facility] Ndcagsxnyd62[address] [place] [address]Dr. Devin Suresh Calcium [Mass/Vol] 9.5 mg/dL Normal 8.5-10.1 [facility] Comment on above: Performed By: #### C STU, HSTROPN ####[facility] Aihkvrempj[address] [place], [place] [address]Dr. Devin Suresh Chloride [Moles/Vol] 105 mmol/L Normal 98-107 [facility] Comment on above: Performed By: #### C MP, HSTROPN ####[facility] Prqiwybksk[address] [place] [address]Dr. Devin Suresh CO2 [Moles/Vol] 27.5 mmol/L Normal 21.0-32.0 [facility] Comment on above: Performed By: #### C MP, HSTROPN ####[facility] Eqswrwwjbl13[address] [place] [address]Dr. Devin Suresh Creatinine [Mass/Vol] 0.83 mg/dL Normal 0.55-1.02 [facility] Comment on above: Performed By: #### C MP, HSTROPN ####[facility] Adoaidusqf[address] [place] [address]Dr. Deivn Suresh EGFR-AF LUXEMBOURGER >60 Normal >=60 [facility] Comment on above: Performed By: #### C MP, HSTROPN ####[facility] Huucmmacjf[address] [place], [place] [address]Dr. Devin Suresh EGFR-NON AF LUXEMBOURGER >60 Normal >=60 [facility] Comment on above: Performed By: #### C MP, HSTROPN ####[facility] Cbljsgnmiy[address] [place], [place] [address]Dr. Devin Suresh Globulin (S) [Mass/Vol] 3.7 g/dL Normal [facility] Comment on above: Performed By: #### C MP, HSTROPN ####[facility] Sowmbieapl[address] [place] [address]Dr. Devin Suresh Glucose [Mass/Vol] 66 mg/dL Critically low 74-106 [facility] Comment on above: Performed By: #### C MP, HSTROPN ####[facility] Uwxbbkntbs[address] [place] [address]Dr. Devin Suresh Potassium [Moles/Vol] 3.2 mmol/L Critically low 3.5-5.1 [facility] Comment on above: Performed By: #### C MP, HSTROPN ####[facility] Zxwfocsmbq4782 [place] [address]Dr. Devin Suresh Protein [Mass/Vol] 7.4 g/dL Normal 6.4-8.2 [facility] Comment on above: Performed By: #### C MP, HSTROPN ####[facility] Kqckmlzttb[address] [place] [address]Dr. Devin Suresh Sodium [Moles/Vol] 142 mmol/L Normal 136-145 [facility] Comment on above: Performed By: #### C MP, HSTROPN ####[facility] Etvnvvpvwm38[address] [place] [address]Dr. Devin Suresh Urea nitrogen [Mass/Vol] 15.0 mg/dL Normal 7.0-18.0 The [facility] Comment on above: Performed By: #### C STU, HSTROPN ####[facility] Wjwktlqcnu9783 [place] [address]Dr. Devin Suresh Urea nitrogen/Creatinine [Mass ratio] 18.1 mg/mg Normal [facility] Comment on above: Performed By: #### C STU, HSTROPN ####[facility] Jwkubzivcz[address] [place], [place] [address]Dr. Devin Suresh TROPONIN, HIGH SENSITIVITYon 06-11-2022 HSTROP 5.5 pg/mL Normal 4.0-51.3 The [facility] Comment on above: Result Comment: CUT- OFF POINTS HAVE BEEN ESTABLISHED BASED ON THE FOURTH UNIVERSAL DEFINITIONS OF MYOCARDIALINFARCTION. THE UPPER REFERENCE LIMIT (URL) OF TROPONIN, DEFINED THE 99TH PERCENTILE OFcTnI DISTRIBUTION IN A REFERENCE POPULATION, HAS BEEN CONFIRMED THE DECISION THRESHOLDFOR MS DIAGNOSIS. Performed By: #### H STROPN ####[facility] Dnkttpi[address] [place], [place] [address]Dr. Devin Suresh HSTROP 5.1 pg/mL Normal 4.0-51.3 The [facility] Comment on above: Result Comment: CUT- OFF POINTS HAVE BEEN ESTABLISHED BASED ON THE FOURTH UNIVERSAL DEFINITIONS OF MYOCARDIALINFARCTION. THE UPPER REFERENCE LIMIT (URL) OF TROPONIN, DEFINED THE 99TH PERCENTILE OFcTnI DISTRIBUTION IN A REFERENCE POPULATION, HAS BEEN CONFIRMED THE DECISION THRESHOLDFOR MS DIAGNOSIS. Performed By: #### C MP, HSTROPN ####[facility] [address] [place], [place] [address]Hl. Devin Suresh XR CHEST 1 Von 06-11-2022 XR CHEST 1 V Normal [facility] CHEMISTRYOrdered By: Lab ROP User on 06-02-2022 Glucose [Mass/Vol] 269 mg/dL High 55 - 99 mg/dL [facility] POC Subsection Comment on above: Result Comment: Noti fied RN/MD POC Device SN [id number] Invalid Interpretation Code [facility] POC Subsection POC User ID [id number] Invalid Interpretation Code [facility] POC Subsection POC Username ANETTE MURO Invalid Interpretation Code [facility] POC Subsection Glucose [Mass/Vol] 378 mg/dL High 55 - 99 mg/dL [facility] POC Subsection Comment on above: Result Comment: Prema piper Meter POC Device SN [id number] Invalid Interpretation Code [facility] POC Subsection POC User ID [id number] Invalid Interpretation Code [facility] POC Subsection POC Username JANIE SCHERER Invalid Interpretation Code [facility] POC Subsection Glucose [Mass/Vol] 492 mg/dL Invalid Interpretation Code 55 - 99 mg/dL [facility] POC Subsection POC Device SN [id number] Invalid Interpretation Code [facility] POC Subsection POC User ID [id number] Invalid Interpretation Code [facility] POC Subsection POC Username DWAYNE HEIDY Invalid Interpretation Code [facility] POC Subsection CHEMISTRYOrdered [...] mg/dL Normal 0.0 - 1 .1 mg/dL [facility] Bilirubin.direct [Mass/Vol] 0.2 mg/dL Normal 0.1 [...] rate/Area] mL/min/1.73 m2 Normal >=59mL/min/ 1.73 m2 [facility] Chem S GFR/1.73 sq M.predicted among non-blacks MDRD (S/P/Bld) [Vol rate/Area] mL/min/1.73 m2 Normal >=59mL/min/ 1.73 m2 [facility] Chem S Globulin (S) [Mass/Vol] 3.5 g/dL [...] Auto Coag HEMATOLOGYOrdered By: SYSTEM SYSTEM on 06-02-2022 Basophils/100 WBC (Bld) 0.7 [...] Interpretation Code Negative [facility] UA Auto SS Ina.plasma/Lithiu m.RBC (Bld) [Mass ratio] 0-3 /HPF Normal 0-3/HPF [facility] UA Auto SS Nitrite Ql (U) Negative (06/02/22 6:10 PM) Normal Negative [facility] UA Auto SS pH (U) 5.5 *NA* (06/02/22 6:10 PM) Invalid Interpretation Code 5.0 - 9.0 [facility] UA Auto SS Protein (U) [Mass/Vol] Negative (06/02/22 6:10 PM) Normal Negative [facility] UA Auto SS Specific gravity (U) [Rel density] 1.010 *NA* (06/02/22 6:10 PM) Invalid Interpretation Code 1.005 - 1.030 [facility] UA Auto SS UA Spec Desc Clean Catch (06/02/22 6:10 PM) Normal [facility] UA Auto SS Urobilinogen Qn (U) 0.4923409 {Sheyla'U}/dL Normal 0.0 - 1.0 EU/dL [facility] UA Auto SS WBC Auto Ql (U) Negative (06/02/22 6:10 PM) Normal Negative [facility] UA Auto SS WBC LM.HPF (Urine sed) [#/Area] 0-5 /HPF Normal 0-5/HPF [facility] Auto SS Yeast LM Ql (Urine sed) Trace (06/02/22 6:10 PM) Normal [facility] UA Auto SS CULTURE URINEon 04-23-2022 CULTURE URINE Normal [facility] Comment on above: Performed By: #### U RCX ####[facility] Qwxmqayneb[address]409 [place] [address]DrMaris Suresh POINT OF CARE GLUCOSEon 03-26 Glucose [Mass/Vol] 359 mg/dL Critically high 74-106 [facility] Comment on above: Performed By: #### P OCGLUC ####[facility] Zexkytylxu[address] [place] [address]DrMaris Suresh AMYLASEon 04-20-2022 Amylase [Catalytic activity/Vol] 15 U/L Critically low 25-115 [facility] Comment on above: Performed By: #### L WASHINGTON, RADHA, CMP ####[facility] Yuoimfmaxj7355 [place] [address]Dr. Devin Suresh CBC AUTO DIFFon 04-20-2022 BASO # 0.0 103/ul Normal 0.0-0.1 [facility] Comment on above: Performed By: #### C BC ####[facility] Zjktnygrzb[address] [place], [place] [address]Dr. Devin Suresh Basophils/100 WBC (Bld) 0.2 % Normal 0.2-2.0 The [facility] Comment on above: Performed By: #### C BC ####[facility] Ygdjbqzkaw[address] [place], [place] [address]Dr. Devin Suresh EO # 0.1 103/ul Normal 0.0-0.7 The [facility] Comment on above: Performed By: #### C BC ####[facility] Ndlgdxsnmo[address] [place], [place] [address]Dr. Devin Suresh Eosinophils/100 WBC (Bld) 0.7 % Critically low 0.9-7.0 The [facility] Comment on above: Performed By: #### C BC ####[facility] Horkslwxcn[address] [place], [place] [address]Dr. Devin Suresh Erythrocyte distribution width (RBC) [Ratio] 12.7 % Normal 11.0-15.0 [facility] Comment on above: Performed By: #### C BC ####[facility] Whgcmpqsgw[address] [place], [place] [address]Dr. Devin Suresh Hematocrit (Bld) [Volume fraction] 34.7 % Critically low 36.0-48.0 The [facility] Comment on above: Performed By: #### C BC ####[facility] Uggpijwkzz[address] [place], [place] [address]Dr. Devin Suresh Hemoglobin (Bld) [Mass/Vol] 12.1 g/dL Normal 12.0-16.0 The [facility] Comment on above: Performed By: #### C BC ####[facility] Zxqmwwmepe[address] [place] [address]Dr. Devin Suresh IG # 0.05 10e3/ul Critically high 0.00-0.03 The [facility] Comment on above: Performed By: #### C BC ####[facility] Weyjwjkxep[address] [place] [address]Dr. Devin Kerwin IG % 0.4 % Normal 0.0-0.5 The [facility] Comment on above: Performed By: #### C BC ####[facility] Bdxxipyxlh6[address] [place] [address]Dr. Tishemily Kerwin LYMPH # 0.3 103/ul Critically low 1.2-3.8 The [facility] Comment on above: Performed By: #### C BC ####[facility] Wehgirrcoo0296 [place] [address]Dr. Devin Suresh Lymphocytes/100 WBC (Bld) 2.6 % Critically low 20.5-60.0 The [facility] Comment on above: Performed By: #### C BC ####[facility] Nrlxfpfpap7[address] [place] [address]Dr. Tishemily Suresh MANUAL DIFF REQ NO Normal The [facility] Comment on above: Performed By: #### C BC ####[facility] Edurnxqeed8574 [place] [address]Dr. Devin Suresh MCH (RBC) [Entitic mass] 30.6 pg Normal 26.7-34.0 The [facility] Comment on above: Performed By: #### C BC ####[facility] Wanpkxpncq119[address] [place] [address]Dr. Devin Suresh MCHC (RBC) [Mass/Vol] 34.9 g/dL Normal 29.9-35.2 The [facility] Comment on above: Performed By: #### C BC ####[facility] Uwdlktxgco8[address] [place] [address]Dr. Devin Kerwin MCV (RBC) [Entitic vol] 87.6 fL Normal 81.0-99.0 The [facility] Comment on above: Performed By: #### C BC ####[facility] B[address]encvxhs[address] [place] [address]Dr. Devin Suresh MONO # 0.3 103/ul Normal 0.3-0.8 The [facility] Comment on above: Performed By: #### C BC ####[facility] Skndmhqkef29[address] [place] [address]Dr. Devin Suresh Monocytes/100 WBC (Bld) 2.5 % Normal 1.7-12.0 The [facility] Comment on above: Performed By: #### C BC ####[facility] Fiornttfiu7[address] [place] [address]Dr. Devin Suresh NEUT # 11.9 103/ul Critically high 1.4-6.5 The [facility] Comment on above: Performed By: #### C BC ####[facility] Bcszciqfah5786 [place] [address]Dr. Devin Suresh Neutrophils/100 WBC (Bld) 93.6 % Critically high 43.0-75.0 The [facility] Comment on above: Performed By: #### C BC ####[facility] Lwmdhkuecr[address] [place] [address]Dr. Devin Suresh Platelet mean volume (Bld) [Entitic vol] 9.2 fL Critically low 9.5-13.5 The [facility] Comment on above: Performed By: #### C BC ####[facility] Luycdilzhe[address] [place] [address]Dr. Devin Suresh PLT 288 103/ul Normal 150-450 [facility] Comment on above: Performed By: #### C BC ####[facility] Mkbzttqrbt8564 [place] [address]Dr. Devin Suresh RBC 3.96 106/ul Critically low 4.20-5.40 [facility] Comment on above: Performed By: #### C BC ####[facility] [address] [place], [place] [address]Dr. Devin Suresh WBC 12.8 103/ul Critically high 4.0-11.0 The [facility] Comment on above: Performed By: #### C BC ####[facility] Efjmoeuedm[address] [place], [place] [address]Dr. Devin Suresh Covid-19 PCR (CVDTBH)on 03-26 SARS-CoV-2 (COVID-19) RNA EBONIE+probe Ql (Unsp spec) Not detected Normal NOT DETECTED [facility] Comment on above: Result Comment: When [...] for this test is supported by the [place] of Health and Human Service's declaration that [...] longer be used). Performed By: #### C VDTB ####[facility] Iapjcgsnsx[address] [place], [place] [address]Dr. Devin Suresh ER URINE PROFILEon Bilirubin Ql (U) Negative Normal NEGATIVE The [facility] Comment on above: Performed By: #### REAGAN STARRRO ####[facility] Ygcqbxgnli[address] [place], [place] [address]Dr. Devin Suresh Clarity (U) CLEAR Normal CLEAR [facility] Comment on above: Performed By: #### REAGAN STARRRO ####[facility] Yzdcsnhhsz8[address] [place], [place] [address]Dr. Devin Suresh Color (U) LT. YELLOW Normal YELLOW The [facility] Comment on above: Performed By: #### Bud ALLEN UMICRO ####[facility] Fopcqiaudl[address] [place], [place] [address]Dr. Devin Suresh ERUAHD A micrscopic examina tion will be performed if indicated. Normal The [facility] Comment on above: Performed By: #### CHUCKY STARR ####[facility] Qhkmsfieoe7137 [place] [address]Dr. Devin Suresh Glucose Ql (U) >1000 Abnormal NEGATIVE The [facility] Comment on above: Performed By: #### CHUCKY STARR ####[facility] Pptdphordd1536 [place] [address]Dr. Tishemily Suresh Hemoglobin Ql (U) TRACE-INTACT Abnormal NEGATIVE [facility] Comment on above: Performed By: #### CHUCKY STARR ####[facility] Lfvuwrneye[address] [place], [place] [address]Dr. Devin Suresh Ketones Ql (U) TRACE Abnormal NEGATIVE [facility] Comment on above: Performed By: #### CHUCKY STARR ####[facility] Qrrgllkikm[address] [place], [place] [address]Dr. Devin Suresh LEUKOCYTES Negative Normal NEGATIVE [facility] Comment on above: Performed By: #### CHUCKY STARR ####[facility] Wcmzeiaflb[address] [place], [place] [address]Dr. Tishemily Suresh Nitrite Ql (U) Positive Abnormal NEGATIVE [facility] Comment on above: Performed By: #### CHUCKY STARR ####[facility] Vyreujancn[address] [place], [place] [address]Dr. Tishemily Suresh pH (U) 5.0 [pH] Normal 5-9 [facility] Comment on above: Performed By: #### CHUCKY STARR ####[facility] C[address]kzhyvbs[address] [place], [place] [address]Dr. Tishemily Kerwin SPEC GRAVITY 1.015 Normal 1.005-<=1.0 25 [facility] Comment on above: Performed By: #### CHUCKY STARR ####[facility] Swcqzlgtac[address] [place], [place] [address]Dr. Devin Suresh UA PROTEIN Negative Normal NEGATIVE/ TRACE The [facility] Comment on above: Performed By: #### CHUCKY STARR ####[facility] Rflidflchb64[address] [place], [place] [address]Dr. Devin Suresh UR MICRO IND INDICATED Normal [facility] Comment on above: Performed By: #### CHUCKY STARR ####[facility] Rbnlnhcaqm[address] [place], [place] [address]Dr. Devin Suresh Urobilinogen Qn (U) 0.2 {Sheyla'U}/dL Normal 0.2 - 1. 0 [facility] Comment on above: Performed By: #### CHUCKY STARR ####[facility] Ifrifbibnq[address] [place], [place] [address]Dr. Devin Suresh INFLUENZA A AND B AGon 04-20 INFLUENZA A AG Negative Normal NEGATIVE SEE COMMENT [facility] Comment on above: Performed By: #### R MONICA, INFLUAB ####[facility] Otipnbfhue[address] [place], [place] [address]Dr. Devin Suresh INFLUENZA B AG Negative Normal NEGATIVE SEE COMMENT [facility] Comment on above: Performed By: #### R SV, INFLUAB ####[facility] Jrqjugfuct159[address] [place], [place] [address]Dr. Devin Suresh INFLUPOSH SEE BELOW Normal [facility] Comment on above: Result Comment: NOTE : Live attenuated influenzae vaccine viruses can cause a positive result for a rapid influenza diagnostic test if administered up to 7 days prior to rapid testing. Performed By: #### R SV, INFLUAB ####[facility] Erbqyocham[address] [place], [place] [address]Dr. Devin Suresh INFLUPOSHB SEE BELOW Normal [facility] Comment on above: Result Comment: NOTE : Live attenuated influenzae vaccine viruses can cause a positive result for a rapid influenza diagnostic test if administered up to 7 days prior to rapid testing. Performed By: #### R SV, INFLUAB ####[facility] [address]yfuj[address] [place], [place] [address]Dr. Devin Suresh INTERNAL CONTROLS Within Normal Limits Normal Wi thin Normal Limits The [facility] Comment on above: Performed By: #### R SV, INFLUAB ####[facility] Ephmxdhkub8[address] [place], [place] [address]Dr. Devin Suresh LACTATE/LACTIC ACIDon 2021 Lactate [Moles/Vol] 1.9 mmol/L Normal 0.4-1.9 [facility] Comment on above: Performed By: #### L ACT ####[facility] Lfxialykmc5105 [place] [address]Dr. Devin Suresh LIPASEon 04-20-2022 Lipase [Catalytic activity/Vol] 111.0 U/L Normal 73.0-393.0 [facility] Comment on above: Performed By: #### L RADHA DELAROSA, CMP ####[facility] Budypllewa7368 [place] [address]Dr. Devin Suresh POINT OF CARE GLUCOSEon 03-26 Glucose [Mass/Vol] 573 mg/dL Critically high 74-106 [facility] Comment on above: Result Comment: Lab Draw Ordered Performed By: #### P OCGLUC ####[facility] Wfuhxunhhi[address] [place], [place] [address]DrMaris Suresh PROF 14(COMP METB)on 022 Albumin [Mass/Vol] 3.4 g/dL Normal 3.4-5.0 [facility] Comment on above: Performed By: #### L RADHA DELAROSA, CMP ####[facility] Meyndtpebl[address] [place], [place] [address]Dr. Devin Suresh Albumin/Globulin [Mass ratio] 0.9 {ratio} Normal [facility] Comment on above: Performed By: #### L RADHA DELAROSA, CMP ####[facility] Gkpthtmjpp4[address] [place] [address]Dr. Devin Suresh ALP [Catalytic activity/Vol] 132 U/L Critically high 46-116 [facility] Comment on above: Performed By: #### L RADHA DELAROSA, CMP ####[facility] Dkosjzkmfd4836 [place] [address]Dr. Devin Suresh ALT [Catalytic activity/Vol] 16 U/L Normal 14-59 [facility] Comment on above: Performed By: #### L RADHA DELAROSA, CMP ####[facility] Poyvgsipdj1480 [place] [address]Dr. Devin Suresh Anion gap [Moles/Vol] 12.3 mmol/L Normal Th [facility] Comment on above: Performed By: #### L RADHA DELAROSA, CMP ####[facility] Gxsxkexczw84[address] [place] [address]Dr. Devin Suresh AST [Catalytic activity/Vol] 9 U/L Critically low 15-37 [facility] Comment on above: Performed By: #### L RADHA DELAROSA, CMP ####[facility] Vnjwnaszeg35[address] [place] [address]Dr. Devin Suresh Bilirubin [Mass/Vol] 0.9 mg/dL Normal 0.2-1.0 [facility] Comment on above: Performed By: #### L RADHA DELAROSA, CMP ####[facility] [address]ifblgohhn[address] [place], [place] [address]Dr. Devin Suresh Calcium [Mass/Vol] 9.0 mg/dL Normal 8.5-10.1 [facility] Comment on above: Performed By: #### L RADHA DELAROSA, CMP ####[facility] [address] [place], [place] [address]Dr. Devin Suresh Chloride [Moles/Vol] 96 mmol/L Critically low 98-107 [facility] Comment on above: Performed By: #### L RADHA DELAROSA, CMP ####[facility] Tabgfpvbok[address] [place], [place] [address]Dr. Devin Suresh CO2 [Moles/Vol] 26.0 mmol/L Normal 21.0-32.0 [facility] Comment on above: Performed By: #### L RADHA DELAROSA, CMP ####[facility] Dqfsqgbage34[address] [place] [address]Dr. Devin Suresh Creatinine [Mass/Vol] 1.15 mg/dL Critically high 0.55-1.02 [facility] Comment on above: Performed By: #### L RADHA DELAROSA, CMP ####[facility] Ltacpfjslf[address] [place] [address]Dr. Devin Suresh EGFR-AF LUXEMBOURGER >60 Normal >=60 [facility] Comment on above: Performed By: #### L RADHA DELAROSA, CMP ####[facility] Kzpnttruml[address] [place] [id number]. Devin Suresh EGFR-NON AF LUXEMBOURGER 51 mL/min/1.73m2 Critically low >=60 [facility] Comment on above: Performed By: #### L RADHA DELAROSA, CMP ####[facility] Elpqfxzsfk260[address] [place] [address]Dr. Devin Suresh Globulin (S) [Mass/Vol] 3.7 g/dL Normal [facility] Comment on above: Performed By: #### L RADHA DELAROSA, CMP ####[facility] Pkdogdjifr[address] [place] [address]Dr. Devin Suresh Glucose [Mass/Vol] 590 mg/dL Critically high 74-106 T [facility] Comment on above: Performed By: #### L RADHA DELAROSA, CMP ####[facility] Phtbuitunm[address] [place] [address]Dr. Devin Suresh Potassium [Moles/Vol] 4.3 mmol/L Normal 3.5-5.1 [facility] Comment on above: Performed By: #### L RADHA DELAROSA, CMP ####[facility] Ymtjwbvhci8476 [place] [address]Dr. Devin Suresh Protein [Mass/Vol] 7.1 g/dL Normal 6.4-8.2 [facility] Comment on above: Performed By: #### L RADHA DELAROSA, CMP ####[facility] Chnuaokkna[address] [place] [address]Dr. Devin Suresh Sodium [Moles/Vol] 130 mmol/L Critically low 136-145 Th [facility] Comment on above: Performed By: #### L RADHA DELAROSA, CMP ####[facility] Taffqzsxby[address] [place] [address]Dr. Devin Suresh Urea nitrogen [Mass/Vol] 22.0 mg/dL Critically high 7.0-18.0 [facility] Comment on above: Performed By: #### L RADHA DELAROSA, CMP ####[facility] Iggqqpztuf[address] [place] [address]Dr. Devin Suresh Urea nitrogen/Creatinine [Mass ratio] 19.1 mg/mg Normal [facility] Comment on above: Performed By: #### L IPA, RADHA, CMP ####[facility] Nxphfpfppt549[address] [place] [address]Dr. Devin Suresh RSVon 04-20-2022 RSV AG Negative Normal NEGATIVE [facility] Comment on above: Performed By: #### R SV, INFLUAB ####[facility] Ztrkdzbrvl[address] [place], [place] [address]Dr. Tishemily Kerwin URINE MICROSCOPIC ONLYon BACTERIA MODERATE Abnormal NONE SEEN [facility] Comment on above: Performed By: #### E RUR, UMICRO ####[facility] Amskzymlul[address] [place], [place] [address]Dr. Devin Suresh Bacteria identified Cx Nom (U) INDICATED Normal The [facility] Comment on above: Performed By: #### E RUR, UMICRO ####[facility] Zyj[address]pr[address]fu[address] [place], [place] [address]Dr. Devin Suresh CAST NONE SEEN Normal NONE SEEN The [facility] Comment on above: Performed By: #### E RUR, UMICRO ####[facility] Vlhipfs[address] [place], [place] [address]Dr. Devin Suresh Crystals LM Nom (Urine sed) NONE SEEN Normal NONE SEEN [facility] Comment on above: Performed By: #### E RUR, UMICRO ####[facility] Amiyzeemoe[address] [place], [place] [address]Dr. Devin Suresh Epithelial cells LM Ql (Urine sed) RARE Normal NONE SEEN /RARE [facility] Comment on above: Performed By: #### E RUR, UMICRO ####[facility] Uhpqwaleow[address] [place], [place] [address]Dr. Devin Suresh MUCOUS NONE SEEN Normal NONE SEEN The [facility] Comment on above: Performed By: #### E RUR, UMICRO ####[facility] Ejouhrnlpl[address] [place] [address]Dr. Devin Suresh RBC NONE SEEN Abnormal 0-2 [facility] Comment on above: Performed By: #### E RUR, UMICRO ####[facility] Yioy[address]zver5168 [place], [place] [address]Kj. Devin Suresh WBC 2-5 Abnormal NONE SEEN The [facility] Comment on above: Performed By: #### CHUCKY STARR ####[facility] Gbkyefoitd4497 [place], [place] [address]Qg. Devin Suresh XR CHEST 2 Von 04-20-2022 XR CHEST 2 V Normal [facility] CHEMISTRYOrdered By: Lab ROP User on 04-09-2022 Glucose [Mass/Vol] 105 mg/dL High 55 - 99 mg/dL [facility] POC Subsection Comment on above: Result Comment: Peter yeh RN/ POC Device SN [id number] Invalid Interpretation Code [facility] POC Subsection POC User ID [id number] Invalid Interpretation Code [facility] POC Subsection POC Username Michi Huynh Invalid Interpretation Code [facility] POC Subsection Glucose [Mass/Vol] 50 mg/dL Low 55 - 99 mg/dL [facility] POC Subsection Comment on above: Result Comment: Peter yeh RN/ POC Device SN [id number] Invalid Interpretation Code [facility] POC Subsection POC User ID [id number] Invalid Interpretation Code [facility] POC Subsection POC Username Michi Huynh Invalid Interpretation Code [facility] POC Subsection Glucose [Mass/Vol] 53 mg/dL Low 55 - 99 mg/dL [facility] POC Subsection Comment on above: Result Comment: Peter yeh RN/ POC Device SN [id number] Invalid Interpretation Code [facility] POC Subsection POC User ID [id number] Invalid Interpretation Code [facility] POC Subsection POC Username Michi Huynh Invalid Interpretation Code [facility] POC Subsection CHEMISTRYOrdered By: SYSTEM SYSTEM on 04-08-2022 Anion gap [Moles/Vol] 4 mmol/L Low 6 - 16 mEq/L [facility] Remisol Calcium [Mass/Vol] 8.5 mg/dL Low 8.9 - 11. 1 mg/dL [facility] Chloride [Moles/Vol] 112 mmol/L High 101 - 1 11 mmol/L [facility] CO2 [Moles/Vol] 25 mmol/L Normal 21 - 31 mmol/L [facility] Creatinine [Mass/Vol] 1.1 mg/dL Normal 0.5 - 1.3 mg/dL [facility] GFR/1.73 sq M.predicted among blacks MDRD (S/P/Bld) [Vol rate/Area] mL/min/1.73 m2 Normal >=59mL/min/ 1.73 m2 [facility] Chem S GFR/1.73 sq M.predicted among non-blacks MDRD (S/P/Bld) [Vol rate/Area] 54 mL/min/1.73 m2 Low >=59mL/min/ 1.73 m2 [facility] Chem S Glucose [Mass/Vol] 122 mg/dL Normal 55 - 199 mg/dL [facility] Remisol Magnesium [Mass/Vol] 2.6 mg/dL High 1.3 - 2 .4 mg/dL [facility] Potassium [Moles/Vol] 3.7 mmol/L Normal 3.5 - 5.3 mmol/L [facility] Sodium [Moles/Vol] 137 mmol/L Normal 135 - 145 mmol/L [facility] Remisol Urea nitrogen [Mass/Vol] 27 mg/dL High 5 - 21 mg/dL [facility] Remisol Urea nitrogen/Creatinine [Mass ratio] 24 mg/mg High 10 - 20 [facility] Remisol CHEMISTRYOrdered By: SYSTEM SYSTEM on 04-07-2022 Anion gap [Moles/Vol] 11 mmol/L Normal 6 - 16 mEq/L [facility] Remisol Calcium [Mass/Vol] 8.8 mg/dL Low 8.9 - 11. 1 mg/dL [facility] Remisol Chloride [Moles/Vol] 102 mmol/L Normal 101 - 1 11 mmol/L [facility] Remisol CO2 [Moles/Vol] 22 mmol/L Normal 21 - 31 mmol/L [facility] Remisol Creatinine [Mass/Vol] 1.0 mg/dL Normal 0.5 - 1.3 mg/dL [facility] Remisol GFR/1.73 sq M.predicted among blacks MDRD (S/P/Bld) [Vol rate/Area] mL/min/1.73 m2 Normal >=59mL/min/ 1.73 m2 [facility] Chem S GFR/1.73 sq M.predicted among non-blacks MDRD (S/P/Bld) [Vol rate/Area] 60 mL/min/1.73 m2 Normal >=59mL/min/ 1.73 m2 [facility] Chem S Glucose [Mass/Vol] 372 mg/dL High 55 - 199 mg/dL [facility] Remisol Potassium [Moles/Vol] 4.4 mmol/L Normal 3.5 - 5.3 mmol/L [facility] Remisol Sodium [Moles/Vol] 131 mmol/L Low 135 - 145 mmol/L [facility] Remisol Urea nitrogen [Mass/Vol] 19 mg/dL [...] rate/Area] mL/min/1.73 m2 Normal >=59mL/min/ 1.73 m2 [facility] Chem S GFR/1.73 sq M.predicted among non-blacks MDRD (S/P/Bld) [Vol rate/Area] mL/min/1.73 m2 Normal >=59mL/min/ 1.73 m2 [facility] Chem S Globulin (S) [Mass/Vol] 3.2 g/dL Normal 1.4 - 4.0 gm/dL [facility] Remisol Glucose [Mass/Vol] 419 mg/dL High 55 - 199 mg/dL [facility] Remisol Lipase [Catalytic activity/Vol] 22 U/L Normal 13 - 58 unit/L [facility] Remisol Magnesium [Mass/Vol] 1.5 mg/dL Normal 1.3 - 2 .4 mg/dL [facility]isol Phosphate [Mass/Vol] 3.7 mg/dL Normal 1.9 - 4 .6 mg/dL [facility] Remisol Potassium [Moles/Vol] 4.2 mmol/L Normal 3.5 - 5.3 mmol/L [facility] Remisol Protein [Mass/Vol] 6.6 g/dL Normal 6.0 - 7.8 gm/dL [facility] Remisol Sodium [Moles/Vol] 133 mmol/L Low 135 - 145 mmol/L [facility] Remisol Urea nitrogen [Mass/Vol] 19 mg/dL Normal 5 - 21 mg/dL [facility] Remisol Urea nitrogen/Creatinine [Mass ratio] 21 mg/mg High 10 - 20 [facility] Remisol Beta hydroxybutyrate [Moles/Vol] 0.51 mmol/L High 0.02 - 0.27 mmol/L [facility] Remisol CHEMISTRYOrdered By: Don Montes on 04-07-2022 HbA1c (Bld) [Mass fraction] 9.7 % High <=5.9% [facility] ChemAutoSS CHEMISTRYOrdered By: Mary Lou Salas on 04-06-2022 Natriuretic peptide B (Bld) [Mass/Vol] 11 pg/mL Normal 5 - 80 pg/mL [facility] HemeManSS CHEMISTRYOrdered By: SYSTEM SYSTEM on 04-06-2022 Troponin I.cardiac [Mass/Vol] 4.50 pg/mL Low 10.10 - 27.10 pg/mL [facility] Remisol HEMATOLOGYOrdered By: SYSTEM SYSTEM on 04-06-2022 Basophils/100 WBC (Bld) 1.6 % Normal 0.0 - 2.0 % [facility] [...] - 7.5 E9/L [facility] HemeAutoSS HEMATOLOGYOrdered By: Jesusiso n Maritza on 04-06-2022 Erythrocyte distribution width (RBC) [Ratio] [...] 34.2 g/dL Normal 31.4 - 36.0 gm/dL [facility] HemeAutoSS MCV (RBC) [Entitic vol] 88.1 fL Normal 80.0 - 100.0 fL [facility] HemeAutoSS Platelet mean volume (Bld) [Entitic vol] 7.3 fL Normal 6.4 - 10.8 fL [facility] HemeAutoSS Platelets (Bld) [#/Vol] 279.0 E9/L Normal 150.0 - 500.0 E9/L [facility] HemeAutoSS RBC (Bld) [#/Vol] 4.4 E12/L Normal 4.3 - 5.9 E12/L [facility] HemeAutoSS WBC corrected for nucl RBC Auto (Bld) [#/Vol] 5.7 E9/L Normal 4.0 - 11.0 E9/L [facility] HemeAutoSS No Panel InformationOrdered By: ANGPROCESSSERVER MICROBIOLOGY on 04-06-2022 Blood Culture Charcoal No growth at 2 days. Final to follow at 7 days. [facility] CT STROKE HEAD WOon 03-31-20 CT STROKE HEAD WO Normal [facility] POINT OF CARE GLUCOSEon Glucose [Mass/Vol] 178 mg/dL Critically high 74-106 T he [facility] Comment on above: Performed By: #### P OCGLUC ####[facility] [address]cp[address] [place] [address]Dr. Devin Suresh XR CHEST 1 Von 03-31-2022 XR CHEST 1 V Normal [facility] CBC AUTO DIFFon 03-05-2022 BASO # 0.0 103/ul Normal 0.0-0.1 [facility] Comment on above: Performed By: #### C BC ####[facility] [address]xr[address] [place] [phone]. Devin Suresh Basophils/100 WBC (Bld) 0.2 % Normal 0.2-2.0 [facility] Comment on above: Performed By: #### C BC ####[facility] Pzjwififpq[address] [place] [phone]. Devin Suresh EO # 0.0 103/ul Normal 0.0-0.7 [facility] Comment on above: Performed By: #### C BC ####[facility] Zrjngdadve0233 [place] [phone]. Devin Suresh Eosinophils/100 WBC (Bld) 0.1 % Critically low 0.9-7.0 [facility] Comment on above: Performed By: #### C BC ####[facility] Qmmxwgrwwv0565 [place] [phone]. Devin Suresh Erythrocyte distribution width (RBC) [Ratio] 13.0 % Normal 11.0-15.0 [facility] Comment on above: Performed By: #### C BC ####[facility] Rdyynucvtj4131 [place] [phone]. Devin Suresh Hematocrit (Bld) [Volume fraction] 35.3 % Critically low 36.0-48.0 [facility] Comment on above: Performed By: #### C BC ####[facility] [address]st[address] [place], [place] [address]Dr. Devin Suresh Hemoglobin (Bld) [Mass/Vol] 11.9 g/dL Critically low 12.0-16.0 [facility] Comment on above: Performed By: #### C BC ####[facility] Sw[address]wywxrtf[address] [place], [place] [address]Dr. Devin Suresh IG # 0.09 10e3/ul Critically high 0.00-0.03 [facility] Comment on above: Performed By: #### C BC ####[facility] [address]qcfckmwix[address] [place], [place] [address]Dr. Devin Suresh IG % 0.7 % Critically high 0.0-0.5 [facility] Comment on above: Performed By: #### C BC ####[facility] Tjtjbdjvrj90[address] [place] [address]Dr. Devin Suresh LYMPH # 2.3 103/ul Normal 1.2-3.8 [facility] Comment on above: Performed By: #### C BC ####[facility] [address]zlhvecr[address] [place], [place] [address]Dr. Devin Suresh Lymphocytes/100 WBC (Bld) 17.3 % Critically low 20.5-60.0 [facility] Comment on above: Performed By: #### C BC ####[facility] Zllidqtmcj0819 [place] [phone]. Devin Suresh MANUAL DIFF REQ NO Normal [facility] Comment on above: Performed By: #### C BC ####[facility] Woaarlgpxj8546 [place] [phone]. Devin Kerwin MCH (RBC) [Entitic mass] 30.9 pg Normal 26.7-34.0 [facility] Comment on above: Performed By: #### C BC ####[facility] Mbqyvwvrtc7678 [place] [phone]. Devin Kerwin MCHC (RBC) [Mass/Vol] 33.7 g/dL Normal 29.9-35.2 [facility] Comment on above: Performed By: #### C BC ####[facility] Naskrexc[address] [place], [place] [address]Dr. Tishemily Suresh MCV (RBC) [Entitic vol] 91.7 fL Normal 81.0-99.0 [facility] Comment on above: Performed By: #### C BC ####[facility] [address] [place], [place] [address]Dr. Devin Kerwin MONO # 0.6 103/ul Normal 0.3-0.8 [facility] Comment on above: Performed By: #### C BC ####[facility] Vcekdkwbup58[address] [place] [address]Dr. Devin Suresh Monocytes/100 WBC (Bld) 4.6 % Normal 1.7-12.0 [facility] Comment on above: Performed By: #### C BC ####[facility] Gmznrueyeo0396 [place] [phone]. Devin Suresh NEUT # 10.2 103/ul Critically high 1.4-6.5 [facility] Comment on above: Performed By: #### C BC ####[facility] [address] [place], [place] [id number]. Devin Suresh Neutrophils/100 WBC (Bld) 77.1 % Critically high 43.0-75.0 [facility] Comment on above: Performed By: #### C BC ####[facility] Ttvacnwqlx0422 [place], [place] [address]Go. Devin Suresh Platelet mean volume (Bld) [Entitic vol] 9.4 fL Critically low 9.5-13.5 [facility] Comment on above: Performed By: #### C BC ####[facility] Szgshhgyiy5704 [place], [place] [address]Sd. Devin Suresh PLT 382 103/ul Normal 150-450 [facility] Comment on above: Performed By: #### C BC ####[facility] Hnrmupzgrh2259 [place], [place] [address]Gj. Devin Suresh RBC 3.85 106/ul Critically low 4.20-5.40 [facility] Comment on above: Performed By: #### C BC ####[facility] Kovxljgvsw3459 [place] [phone]. Devin Suresh WBC 13.2 103/ul Critically high 4.0-11.0 [facility] Comment on above: Performed By: #### C BC ####[facility] Dkbnrigxgz9427 [place], [place] [address]Fk. Devin Suresh CT HEAD WO CONon 03-05-2022 CT HEAD WO CON Normal The [facility] CTA HEAD WO W CONon 03-05-20 CTA HEAD WO W CON Normal [facility] GLYCOHEMOGLOBIN A1Con 2021 ADA RECOMMENDATION SEE BELOW Normal The [facility] Comment on above: Result Comment: ADA RECOMMENDED LIMIT 4.0 - 6.0 ADA THERAPEUTIC TARGET < 7.0 ACTION SUGGESTED > 7.0 Performed By: #### A 1C ####[facility] Sqaenxxdgh[address] [place] [phone]. Devin Suresh Glucose [Mass/Vol] 249 mg/dL Normal The [facility] Comment on above: Performed By: #### A 1C ####[facility] Gefblxbfsm5581 [place], [place] [address]Tz. Devin Suresh HbA1c (Bld) [Mass fraction] 10.3 % Critically high 4.5-6.2 [facility] Comment on above: Performed By: #### A 1C ####[facility] Ewmqmdfrbq7456 [place] [address]Dr. Devin Suresh POINT OF CARE GLUCOSEon 02-22 Glucose [Mass/Vol] 276 mg/dL Critically high -106 [facility] Comment on above: Performed By: #### P OCGLUC ####[facility] Szwrdzgqla6962 [place] [address]Dr. Tishemily Kerwin Glucose [Mass/Vol] 209 mg/dL Critically high 74-106 [facility] Comment on above: Performed By: #### P OCGLUC ####[facility] Snuqypyeqi95[address] [place] [address]Dr. Devin Suresh Glucose [Mass/Vol] 286 mg/dL Critically high -106 [facility] Comment on above: Performed By: #### P OCGLUC ####[facility] Ogslzvasza[address] [place] [address]Dr. Devin Suresh PROF 14(COMP METB)on 022 Albumin [Mass/Vol] 2.9 g/dL Critically low 3.4-5.0 [facility] Comment on above: Performed By: #### C MP ####[facility] Eodtcewsrn2[address] [place] [address]Dr. Devin Suresh Albumin/Globulin [Mass ratio] 0.9 {ratio} Normal [facility] Comment on above: Performed By: #### C MP ####[facility] Ehhfojiwak26[address] [place] [address]Dr. Devin Suresh ALP [Catalytic activity/Vol] 109 U/L Normal 46-116 [facility] Comment on above: Performed By: #### C MP ####[facility] Cvjukhswqi59[address] [place] [address]Dr. Devin Suresh ALT [Catalytic activity/Vol] 13 U/L Critically low 14-59 [facility] Comment on above: Performed By: #### C MP ####[facility] Ytjzzqirtm0316 [place] [address]Dr. Devin Suresh Anion gap [Moles/Vol] 12.1 mmol/L Normal Th [facility] Comment on above: Performed By: #### C MP ####[facility] Cjtyudqlky5493 [place] [phone]. Devin Suresh AST [Catalytic activity/Vol] 6 U/L Critically low 15-37 [facility] Comment on above: Performed By: #### C MP ####[facility] Alvicwlsdz3950 [place] [phone]. Devin Suresh Bilirubin [Mass/Vol] 0.4 mg/dL Normal 0.2-1.0 [facility] Comment on above: Performed By: #### C MP ####[facility] Ihjyxelnvx3666 [place] [phone]. Devin Suresh Calcium [Mass/Vol] 8.6 mg/dL Normal 8.5-10.1 [facility] Comment on above: Performed By: #### C MP ####[facility] [address]uy[address]ra[address] [place], [place] [address]Dr. Devin Suresh Chloride [Moles/Vol] 105 mmol/L Normal 98-107 [facility] Comment on above: Performed By: #### C MP ####[facility] Vunvhnrmca6618 [place] [phone]. Devin Suresh CO2 [Moles/Vol] 25.4 mmol/L Normal 21.0-32.0 [facility] Comment on above: Performed By: #### C MP ####[facility] Qcbgupvykj9345 [place] [phone]. Devin Suresh Creatinine [Mass/Vol] 1.38 mg/dL Critically high 0.55-1.02 [facility] Comment on above: Performed By: #### C MP ####[facility] Vtccxtyuhg8828 [place] [phone]. Devin Kerwin EGFR-AF LUXEMBOURGER 50 mL/min/1.73m2 Critically low >=60 [facility] Comment on above: Performed By: #### C MP ####[facility] Yciqdixbxy3250 [place] [phone]. Tishemily Kerwin EGFR-NON AF LUXEMBOURGER 42 mL/min/1.73m2 Critically low >=60 [facility] Comment on above: Performed By: #### C MP ####[facility] Oeakojpexv110[address] [place] [address]Dr. Devin Suresh Globulin (S) [Mass/Vol] 3.3 g/dL Normal [facility] Comment on above: Performed By: #### C MP ####[facility] Jacpfiiekf4792 [place] [phone]. Devin Suresh Glucose [Mass/Vol] 258 mg/dL Critically high 74-106 [facility] Comment on above: Performed By: #### C MP ####[facility] Qljbkeoafd9108 [place] [phone]. Devin Kerwin Potassium [Moles/Vol] 4.5 mmol/L Normal 3.5-5.1 [facility] Comment on above: Performed By: #### C MP ####[facility] Bxjriuhtim79[address] [place] [address]Dr. Devin Suresh Protein [Mass/Vol] 6.2 g/dL Critically low 6.4-8.2 Th [facility] Comment on above: Performed By: #### C MP ####[facility] Subadbiuzm[address] [place] [address]Dr. Devin Kerwin Sodium [Moles/Vol] 138 mmol/L Normal 136-145 [facility] Comment on above: Performed By: #### C MP ####[facility] Mfbayuwbdn9141 [place] [address]Dr. Devin Suresh Urea nitrogen [Mass/Vol] 22.0 mg/dL Critically high 7.0-18.0 [facility] Comment on above: Performed By: #### C MP ####[facility] Rpnycxshgi5578 [place] [address]Dr. Devin Kerwin Urea nitrogen/Creatinine [Mass ratio] 15.9 mg/mg Normal [facility] Comment on above: Performed By: #### C MP ####[facility] Hhlbxrjspo6443 [place] [phone]. Devin Kerwin CARDIAC LAURA 3-6on 2 CK [Catalytic activity/Vol] 46 U/L Normal 26-192 [facility] Comment on above: Performed By: #### C MREP ####[facility] Oxhdyxxvyc43[address] [place] [address]Dr. Devin Suresh CK.MB [Mass/Vol] 0.87 ng/mL Normal <=3.60 [facility] Comment on above: Performed By: #### C MREP ####[facility] [address]ep[address] [place] [address]Dr. Devin Suresh HSTROP 8.1 pg/mL Normal 4.0-51.3 [facility] Comment on above: Result Comment: CUT- OFF POINTS HAVE BEEN ESTABLISHED BASED ON THE FOURTH UNIVERSAL DEFINITIONS OF MYOCARDIALINFARCTION. THE UPPER REFERENCE LIMIT (URL) OF TROPONIN, DEFINED THE 99TH PERCENTILE OFcTnI DISTRIBUTION IN A REFERENCE POPULATION, HAS BEEN CONFIRMED THE DECISION THRESHOLDFOR MS DIAGNOSIS. Performed By: #### C MREP ####[facility] Ligjroyiwe[address] [place] [address]Dr. Devin Suresh CK [Catalytic activity/Vol] 51 U/L Normal 26-192 [facility] Comment on above: Performed By: #### C MREP ####[facility] Uhvhcdebsh[address] [place] [address]Dr. Devin Suresh CK.MB [Mass/Vol] 0.85 ng/mL Normal <=3.60 [facility] Comment on above: Performed By: #### C MREP ####[facility] Peqmbdnevx64[address] [place] [address]Dr. Devin Suresh HSTROP 10.8 pg/mL Normal 4.0-51.3 [facility] Comment on above: Result Comment: CUT- OFF POINTS HAVE BEEN ESTABLISHED BASED ON THE FOURTH UNIVERSAL DEFINITIONS OF MYOCARDIALINFARCTION. THE UPPER REFERENCE LIMIT (URL) OF TROPONIN, DEFINED THE 99TH PERCENTILE OFcTnI DISTRIBUTION IN A REFERENCE POPULATION, HAS BEEN CONFIRMED THE DECISION THRESHOLDFOR MS DIAGNOSIS. Performed By: #### C MREP ####[facility] Fudzqhyxog[address] [place] [address]Dr. Devin Suresh CBC AUTO DIFFon 03-04-2022 BASO # 0.1 103/ul Normal 0.0-0.1 [facility] Comment on above: Performed By: #### C BC ####[facility] Hyemjlkums[address] [place] [address]Dr. Devin Kerwin Basophils/100 WBC (Bld) 0.8 % Normal 0.2-2.0 [facility] Comment on above: Performed By: #### C BC ####[facility] Fvrlpbylcb1423 [place] [address]Dr. Tishemily Kerwin EO # 0.2 103/ul Normal 0.0-0.7 [facility] Comment on above: Performed By: #### C BC ####[facility] Pqbuz[address] [place], [place] [address]Dr. Devin Suresh Eosinophils/100 WBC (Bld) 2.0 % Normal 0.9-7.0 [facility] Comment on above: Performed By: #### C BC ####[facility] Wegntbnmae[address] [place], [place] [address]Dr. Tishemily Kerwin Erythrocyte distribution width (RBC) [Ratio] 13.1 % Normal 11.0-15.0 [facility] Comment on above: Performed By: #### C BC ####[facility] Zswmebxktq[address] [place], [place] [address]Dr. Tishemily Kerwin Hematocrit (Bld) [Volume fraction] 35.0 % Critically low 36.0-48.0 [facility] Comment on above: Performed By: #### C BC ####[facility] Ktnqzagitt[address] [place], [place] [address]Dr. Tishemily Kerwin Hemoglobin (Bld) [Mass/Vol] 11.9 g/dL Critically low 12.0-16.0 [facility] Comment on above: Performed By: #### C BC ####[facility] Yunovypvvo[address] [place], [place] [address]Dr. Devin Suresh IG # 0.05 10e3/ul Critically high 0.00-0.03 [facility] Comment on above: Performed By: #### C BC ####[facility] Vaghfjqhhs[address] [place], [place] [address]Dr. Devin Suresh IG % 0.5 % Normal 0.0-0.5 [facility] Comment on above: Performed By: #### C BC ####[facility] Shuhjwpgdw5[address] [place] [address]DrMaris Suresh LYMPH # 3.4 103/ul Normal 1.2-3.8 [facility] Comment on above: Performed By: #### C BC ####[facility] Ormjvhnwef3794 [place] [address]DrMaris Suresh Lymphocytes/100 WBC (Bld) 34.2 % Normal 20.5-60.0 [facility] Comment on above: Performed By: #### C BC ####[facility] Ttevakxsua[address] [place], [place] [address]DrMaris Suresh MANUAL DIFF REQ NO Normal [facility] Comment on above: Performed By: #### C BC ####[facility] Ukofylaxdk16[address] [place] [address]Dr. Devin Suresh MCH (RBC) [Entitic mass] 30.6 pg Normal 26.7-34.0 [facility] Comment on above: Performed By: #### C BC ####[facility] Tokyyasoui[address] [place], [place] [address]Dr. Devin Suresh MCHC (RBC) [Mass/Vol] 34.0 g/dL Normal 29.9-35.2 [facility] Comment on above: Performed By: #### C BC ####[facility] Nalwlolddy[address] [place], [place] [address]DrMaris Suresh MCV (RBC) [Entitic vol] 90.0 fL Normal 81.0-99.0 [facility] Comment on above: Performed By: #### C BC ####[facility] S[address]seyjbht[address] [place], [place] [address]DrMaris Suresh MONO # 0.7 103/ul Normal 0.3-0.8 [facility] Comment on above: Performed By: #### C BC ####[facility] Uaiirkqoxe[address] [place], [place] [address]DrMaris Suresh Monocytes/100 WBC (Bld) 6.6 % Normal 1.7-12.0 [facility] Comment on above: Performed By: #### C BC ####[facility] Avfvlvcasw[address] [place] [address]Dr. Devin Suresh NEUT # 5.6 103/ul Normal 1.4-6.5 [facility] Comment on above: Performed By: #### C BC ####[facility] Wxngrvhgop6320 [place] [address]Dr. Devin Suresh Neutrophils/100 WBC (Bld) 55.9 % Normal 43.0-75.0 [facility] Comment on above: Performed By: #### C BC ####[facility] Hcevishjed[address] [place], [place] [address]Dr. Devin Suresh Platelet mean volume (Bld) [Entitic vol] 9.1 fL Critically low 9.5-13.5 [facility] Comment on above: Performed By: #### C BC ####[facility] Xzgqvuewku[address] [place], [place] [address]Dr. Devin Suresh PLT 334 103/ul Normal 150-450 [facility] Comment on above: Performed By: #### C BC ####[facility] [address] [place], [place] [id number]. Devin Suresh RBC 3.89 106/ul Critically low 4.20-5.40 [facility] Comment on above: Performed By: #### C BC ####[facility] Lzrqc[address] [place], [place] [id number]. Devin Suresh WBC 10.0 103/ul Normal 4.0-11.0 [facility] Comment on above: Performed By: #### C BC ####[facility] Btfngazaqk[address] [place], [place] [address]Dr. Devin Suresh CT LSPINE WO CONon CT LSPINE WO CON Normal [facility] Covid-19 PCR (CVDTB)on 02-22 SARS-CoV-2 (COVID-19) RNA EBONIE+probe Ql (Unsp spec) Not detected Normal NOT DETECTED [facility] Comment on above: Result Comment: When [...] for this test is supported by the Front Desk Person of Health and Human Service's declaration that [...] longer be used). Performed By: #### C VDTB ####[facility] [address]js[address] [place] [id number]. Devin Suresh LIPID PROFILEon 03-04-2022 CHOL-HDL RATIO NORM SEE BELOW Normal [facility] Comment on above: Result Comment: 3.3 - 4.4 LOW RISK 4.4 - 7.1 AVERAGE RISK 7.1 - 11.0 MODERATE RISK >11.0 HIGH RISK Performed By: #### L IPID, TSH ####[facility] Aihydwglow[address] [place], [place] [address]Lo. Devin Suresh Cholesterol [Mass/Vol] 231 mg/dL Critically high <=200 [facility] Comment on above: Performed By: #### L IPID, TSH ####[facility] Orbetdkdel[address]349 [place], [place] [address]Ae. Devin Suresh Cholesterol in HDL [Mass/Vol] 52 mg/dL Normal 40-60 [facility] Comment on above: Performed By: #### L IPID, TSH ####[facility] Amfwgslibx5845 [place], [place] [address]Pa. Devin Suresh Cholesterol in LDL [Mass/Vol] 156.6 mg/dL Normal [facility] Comment on above: Performed By: #### L IPID, TSH ####[facility] Yjduneyoqm[address] [place] [address]Dr. Tishemily Suresh Cholesterol.total/Cho lesterol in HDL [Mass ratio] 4.4 {ratio} Normal [facility] Comment on above: Performed By: #### L IPID, TSH ####[facility] Les[address]aq[address] [place] [address]Dr. Devin Suresh HDL NORMAL > or = 60 mg/dl - LO W CARDIOVASCULAR RISK <40 mg/dl - HIGH CARDIOVASCULAR RISK Normal [facility] Comment on above: Performed By: #### L IPID, TSH ####[facility] Xkceqdrzhe[address] [place] [address]Dr. Devin Suresh LDL CALC NORMAL SEE BELOW Normal [facility] Comment on above: Result Comment: <100 mg/dl OPTIMAL 100 - 129 mg/dl NEAR OR ABOVE OPTIMAL 130 - 159 mg/dl BORDERLINE HIGH 160 - 189 mg/dl HIGH >190 mg/dl VERY HIGH Performed By: #### L IPID, TSH ####[facility] Rjiwspnura[address] [place] [address]Dr. Devin Suresh Triglyceride [Mass/Vol] 112 mg/dL Normal <=150 [facility] Comment on above: Performed By: #### L IPID, TSH ####[facility] Vnepoyqmko74[address] [place] [address]Dr. Devin Suresh VLDL CALC 22.4 mg/dL Normal [facility] Comment on above: Performed By: #### L IPID, TSH ####[facility] Disxuhjsnx[address] [place] [address]Dr. Devin Suresh POINT OF CARE GLUCOSEon 10- Glucose [Mass/Vol] 295 mg/dL Critically high 74-106 [facility] Comment on above: Performed By: #### P OCGLUC ####[facility] Fnnffokmpy28[address] [place] [address]Dr. Devin Suresh Glucose [Mass/Vol] 157 mg/dL Critically high 74-106 [facility] Comment on above: Performed By: #### P OCGLUC ####[facility] Xykqzwhzgj8228 [place] [address]Dr. Devin Suresh Glucose [Mass/Vol] 172 mg/dL Critically high 74-106 [facility] Comment on above: Performed By: #### P OCGLUC ####[facility] Pjedinimzt[address] [place] [address]Dr. Devin Suresh Glucose [Mass/Vol] 178 mg/dL Critically high 74-106 [facility] Comment on above: Performed By: #### P OCGLUC ####[facility] Fdxpwekxhs3[address] [place] [address]Dr. Devin Suresh Glucose [Mass/Vol] 241 mg/dL Critically high 74-106 [facility] Comment on above: Performed By: #### P OCGLUC ####[facility] Iuxmszwnko[address] [place] [address]Dr. Devin Kerwin PROF 14(COMP METB)on 022 Albumin [Mass/Vol] 3.1 g/dL Critically low 3.4-5.0 [facility] Comment on above: Performed By: #### C MP ####[facility] Djjvyitixa[address] [place] [address]Dr. Devin Kerwin Albumin/Globulin [Mass ratio] 0.9 {ratio} Normal [facility] Comment on above: Performed By: #### C MP ####[facility] Clfbkhppmg4176 [place] [address]Dr. Devin Kerwin ALP [Catalytic activity/Vol] 114 U/L Normal 46-116 [facility] Comment on above: Performed By: #### C MP ####[facility] Hfkczxskhb56[address] [place] [address]Dr. Devin Kerwin ALT [Catalytic activity/Vol] 9 U/L Critically low 14-59 [facility] Comment on above: Performed By: #### C MP ####[facility] Ikrzbbgpze32[address] [place] [address]Dr. Devin Kerwin Anion gap [Moles/Vol] 12.3 mmol/L Normal [facility] Comment on above: Performed By: #### C MP ####[facility] Jhgycfilch6248 [place] [address]Dr. Devin Suresh AST [Catalytic activity/Vol] 7 U/L Critically low 15-37 [facility] Comment on above: Performed By: #### C MP ####[facility] Gywwpcollr3747 [place] [address]Dr. Devin Suresh Bilirubin [Mass/Vol] 0.4 mg/dL Normal 0.2-1.0 [facility] Comment on above: Performed By: #### C MP ####[facility] Incqpjihjs6838 [place] [address]Dr. Devin Suresh Calcium [Mass/Vol] 8.3 mg/dL Critically low 8.5-10.1 Th e [facility] Comment on above: Performed By: #### C MP ####[facility] Czkejvqazy[address] [place] [address]Dr. Devin Suresh Chloride [Moles/Vol] 103 mmol/L Normal 98-107 [facility] Comment on above: Performed By: #### C MP ####[facility] Topmzdmzda84[address] [place] [address]Dr. Devin Suresh CO2 [Moles/Vol] 27.2 mmol/L Normal 21.0-32.0 [facility] Comment on above: Performed By: #### C MP ####[facility] Rgjvsdppoh9726 [place] [address]Dr. Devin Suresh Creatinine [Mass/Vol] 0.95 mg/dL Normal 0.55-1.02 [facility] Comment on above: Performed By: #### C MP ####[facility] Kflrrxqioy8218 [place] [address]Dr. Devin Suresh EGFR-AF LUXEMBOURGER >60 Normal >=60 [facility] Comment on above: Performed By: #### C MP ####[facility] Natgicdyxq7848 [place] [address]Dr. Devin Kerwin EGFR-NON AF LUXEMBOURGER >60 Normal >=60 [facility] Comment on above: Performed By: #### C MP ####[facility] Loqztggcfj3001 [place] [address]Dr. Yiemily Suresh Globulin (S) [Mass/Vol] 3.3 g/dL Normal [facility] Comment on above: Performed By: #### C MP ####[facility] Sqgfjzhvuw8940 [place] [address]Dr. Devin Suresh Glucose [Mass/Vol] 186 mg/dL Critically high 74-106 [facility] Comment on above: Performed By: #### C MP ####[facility] Nluqusdkay9007 [place] [address]Dr. Devin Suresh Potassium [Moles/Vol] 3.5 mmol/L Normal 3.5-5.1 [facility] Comment on above: Performed By: #### C MP ####[facility] Nvcpbpawee[address] [place], [place] [address]Dr. Devin Suresh Protein [Mass/Vol] 6.4 g/dL Normal 6.4-8.2 [facility] Comment on above: Performed By: #### C MP ####[facility] Yjcfxdaecc[address] [place], [place] [address]Dr. Devin Suresh Sodium [Moles/Vol] 139 mmol/L Normal 136-145 [facility] Comment on above: Performed By: #### C MP ####[facility] Vgjujckyex[address] [place], [place] [address]Dr. Devin Suresh Urea nitrogen [Mass/Vol] 22.0 mg/dL Critically high 7.0-18.0 [facility] Comment on above: Performed By: #### C MP ####[facility] [address]xexzswrkd[address] [place], [place] [address]Dr. Devin Suresh Urea nitrogen/Creatinine [Mass ratio] 23.2 mg/mg Normal [facility] Comment on above: Performed By: #### C MP ####[facility] Plpcdkqpzs[address] [place], [place] [address]Dr. Devin Suresh TSHon 03-04-2022 TSH 4.081 uIU/mL Critically high 0.358-3.740 [facility] Comment on above: Performed By: #### L IPID, TSH ####[facility] Rexjgrdvtt[address] [place], [place] [address]Dr. Devin Suresh CARDIAC LAURA ADMITon 022 CK [Catalytic activity/Vol] 58 U/L Normal 26-192 [facility] Comment on above: Performed By: #### ALEXIA LARKIN ####[facility] Ujfkbrhmoe58[address] [place] [phone]. Devin Suresh CK.MB [Mass/Vol] 0.80 ng/mL Normal <=3.60 [facility] Comment on above: Performed By: #### ALEXIA LARKIN ####[facility] Bworzdrbnp8[address] [place] [address]Dr. Devin Suresh HSTROP 7.9 pg/mL Normal 4.0-51.3 [facility] Comment on above: Result Comment: CUT- OFF POINTS HAVE BEEN ESTABLISHED BASED ON THE FOURTH UNIVERSAL DEFINITIONS OF MYOCARDIALINFARCTION. THE UPPER REFERENCE LIMIT (URL) OF TROPONIN, DEFINED THE 99TH PERCENTILE OFcTnI DISTRIBUTION IN A REFERENCE POPULATION, HAS BEEN CONFIRMED THE DECISION THRESHOLDFOR MS DIAGNOSIS. Performed By: #### ALEXIA LARKIN ####[facility] Zqgxmxghcq0085 [place] [address]Dr. Devin Suresh MELANIE 48 ng/mL Normal 9-82 [facility] Comment on above: Performed By: #### ALEXIA LARKIN ####[facility] Npioswsjvx0604 [place] [phone]. Devin Suresh CBC AUTO DIFFon 03-03-2022 BASO # 0.1 103/ul Normal 0.0-0.1 [facility] Comment on above: Performed By: #### C BC ####[facility] Tenovjkbeh3078 [place] [phone]. Devin Kerwin Basophils/100 WBC (Bld) 0.8 % Normal 0.2-2.0 [facility] Comment on above: Performed By: #### C BC ####[facility] Ibqvwupbiu67[address] [place] [address]Dr. Devin Kerwin EO # 0.1 103/ul Normal 0.0-0.7 [facility] Comment on above: Performed By: #### C BC ####[facility] Vyendxvkvt3100 [place] [phone]. Devin Suresh Eosinophils/100 WBC (Bld) 1.1 % Normal 0.9-7.0 [facility] Comment on above: Performed By: #### C BC ####[facility] Jrgkloqabp3356 [place] [address]Dr. Devin Suresh Erythrocyte distribution width (RBC) [Ratio] 12.9 % Normal 11.0-15.0 [facility] Comment on above: Performed By: #### C BC ####[facility] Bsclzefaxp[address] [place], [place] [address]Dr. Devin Suresh Hematocrit (Bld) [Volume fraction] 37.6 % Normal 36.0-48.0 [facility] Comment on above: Performed By: #### C BC ####[facility] Wpflornnrw[address] [place], [place] [address]Dr. Devin Suresh Hemoglobin (Bld) [Mass/Vol] 12.9 g/dL Normal 12.0-16.0 [facility] Comment on above: Performed By: #### C BC ####[facility] Zwuwfhtvov6251 [place] [address]Dr. Devin Suresh IG # 0.06 10e3/ul Critically high 0.00-0.03 [facility] Comment on above: Performed By: #### C BC ####[facility] Cipsqfwpxf18[address] [place] [address]Dr. Devin Suresh IG % 0.6 % Critically high 0.0-0.5 [facility] Comment on above: Performed By: #### C BC ####[facility] Cxbpmjvujh8204 [place] [address]Dr. Devin Suresh LYMPH # 2.4 103/ul Normal 1.2-3.8 [facility] Comment on above: Performed By: #### C BC ####[facility] Gnxy[address]adbe[address] [place], [place] [address]Dr. Devin Suresh Lymphocytes/100 WBC (Bld) 22.2 % Normal 20.5-60.0 [facility] Comment on above: Performed By: #### C BC ####[facility] Pkowxpfjce0733 [place] [phone]. Devin Suresh MANUAL DIFF REQ NO Normal [facility] Comment on above: Performed By: #### C BC ####[facility] Jwgfsnlhad0324 [place] [phone]. Devin Suresh MCH (RBC) [Entitic mass] 30.7 pg Normal 26.7-34.0 [facility] Comment on above: Performed By: #### C BC ####[facility] [address] [place], [place] [id number]. Devin Suresh MCHC (RBC) [Mass/Vol] 34.3 g/dL Normal 29.9-35.2 [facility] Comment on above: Performed By: #### C BC ####[facility] E[address]rgxuuvb[address] [place], [place] [address]Dr. Devin Suresh MCV (RBC) [Entitic vol] 89.5 fL Normal 81.0-99.0 [facility] Comment on above: Performed By: #### C BC ####[facility] Mfauainzdl0048 [place] [phone]. Devin Suresh MONO # 0.6 103/ul Normal 0.3-0.8 [facility] Comment on above: Performed By: #### C BC ####[facility] Parcxyfzvt3096 [place] [phone]. Devin Kerwin Monocytes/100 WBC (Bld) 5.3 % Normal 1.7-12.0 [facility] Comment on above: Performed By: #### C BC ####[facility] Mjywginvmb4287 [place] [phone]. Devin Suresh NEUT # 7.4 103/ul Critically high 1.4-6.5 [facility] Comment on above: Performed By: #### C BC ####[facility] K[address]xqpm[address] [place], [place] [address]Dr. Devin Kerwin Neutrophils/100 WBC (Bld) 70.0 % Normal 43.0-75.0 [facility] Comment on above: Performed By: #### C BC ####[facility] Prcjldjigx6215 [place] [phone]. Devin Suresh Platelet mean volume (Bld) [Entitic vol] 9.6 fL Normal 9.5-13.5 [facility] Comment on above: Performed By: #### C BC ####[facility] Yvotlkphln1023 [place] [phone]. Devin Suresh PLT 382 103/ul Normal 150-450 [facility] Comment on above: Performed By: #### C BC ####[facility] Buhcvvctyv8713 [place] [phone]. Devin Suresh RBC 4.20 106/ul Normal 4.20-5.40 [facility] Comment on above: Performed By: #### C BC ####[facility] Viyvshrpkk7017 [place] [phone]. Devin Suresh WBC 10.6 103/ul Normal 4.0-11.0 [facility] Comment on above: Performed By: #### C BC ####[facility] Jvfkziwszq9210 [place] [phone]. Devin Suresh CT STROKE HEAD WOon 03-03-[address] STROKE HEAD WO Normal [facility] POINT OF CARE GLUCOSEon 02-22 Glucose [Mass/Vol] 453 mg/dL Critically high 74-106 [facility] Comment on above: Performed By: #### P OCGLUC ####[facility] Owpmaqemly2298 [place] [phone] Suresh PROF CHEM 8 (BAS METB)on Anion gap [Moles/Vol] 11.1 mmol/L Normal [facility] Comment on above: Performed By: #### C CITLALLI, BMP ####[facility] Azzauwrdto6077 [place] [phone] Suresh Calcium [Mass/Vol] 8.6 mg/dL Normal 8.5-10.1 [facility] Comment on above: Performed By: #### C CITLALLI, BMP ####[facility] [address] [place] [id number]. Devin Suresh Chloride [Moles/Vol] 98 mmol/L Normal 98-107 [facility] Comment on above: Performed By: #### Isabell LENNON, BMP ####[facility] [address] [place] [address]Dr. Devin Suresh CO2 [Moles/Vol] 29.0 mmol/L Normal 21.0-32.0 [facility] Comment on above: Performed By: #### Isabell LENNON, BMP ####[facility] [address] [place] [address]Dr. Devin Suresh Creatinine [Mass/Vol] 1.16 mg/dL Critically high 0.55-1.02 [facility] Comment on above: Performed By: #### Isabell LENNON, BMP ####[facility] Ducpnklap[address] [place], [place] [address]Dr. Devin Suresh EGFR-AF LUXEMBOURGER >60 Normal >=60 [facility] Comment on above: Performed By: #### Isabell LENNON, BMP ####[facility] Ks[address]ke[address] [place], [place] [address]Dr. Devin Suresh EGFR-NON AF LUXEMBOURGER 51 mL/min/1.73m2 Critically low >=60 [facility] Comment on above: Performed By: #### Isabell LENNON, BMP ####[facility] [address] [place], [place] [address]Dr. Devin Suresh Glucose [Mass/Vol] 428 mg/dL Critically high 74-106 [facility] Comment on above: Performed By: #### Isabell LENNON, BMP ####[facility] [address] [place] [address]Dr. Devin Suresh Potassium [Moles/Vol] 4.1 mmol/L Normal 3.5-5.1 [facility] Comment on above: Performed By: #### Isabell LENNON, BMP ####[facility] [address] [place] [address]Dr. Devin Suresh Sodium [Moles/Vol] 134 mmol/L Critically low 136-145 [facility] Comment on above: Performed By: #### Isabell LENNON, BMP ####[facility] Lcrsis[address]ibf[address] [place], [place] [address]Zl. Devin Suresh Urea nitrogen [Mass/Vol] 23.0 mg/dL Critically high 7.0-18.0 [facility] Comment on above: Performed By: #### C CITLALLI, BMP ####[facility] [address]vc[address] [place], [place] [address]Qx. Devin Suresh Urea nitrogen/Creatinine [Mass ratio] 19.8 mg/mg Normal [facility] Comment on above: Performed By: #### C CITLALLI, BMP ####[facility] Ppqoccicgl1204 [place], [place] [address]Em. Devin Suresh XR CHEST 1 Von 03-03-2022 XR CHEST 1 V Normal [facility] CHEMISTRYOrdered By: SYSTEM SYSTEM on 02-27-2022 Troponin I.cardiac [Mass/Vol] 4.30 pg/mL Low 10.10 - 27.10 pg/mL [facility] Anion gap [Moles/Vol] 13 mmol/L Normal 6 - 16 mEq/L [facility] Calcium [Mass/Vol] 9.2 mg/dL Normal 8.9 - 11. 1 mg/dL [facility] Chloride [Moles/Vol] 97 mmol/L Low 101 - 1 11 mmol/L [facility] CO2 [Moles/Vol] 26 mmol/L Normal 21 - 31 mmol/L [facility] Creatinine [Mass/Vol] 0.9 mg/dL Normal 0.5 - 1.3 mg/dL [facility] GFR/1.73 sq M.predicted among blacks MDRD (S/P/Bld) [Vol rate/Area] mL/min/1.73 m2 Normal >=59mL/min/ 1.73 m2 [facility] Chem S GFR/1.73 sq M.predicted among non-blacks MDRD (S/P/Bld) [Vol rate/Area] mL/min/1.73 m2 Normal >=59mL/min/ 1.73 m2 [facility] Chem S Glucose [Mass/Vol] 310 mg/dL High 55 - 199 mg/dL [facility] Potassium [Moles/Vol] 3.5 mmol/L [...] 13.4 % Normal 10.9 - 14.2 % [facility] Hematocrit (Bld) [Volume fraction] 38.3 % Normal 34.0 - 46.0 % [facility] Hemoglobin (Bld) [Mass/Vol] 13.0 g/dL Normal 12.0 - 16.0 gm/dL [facility]eAutoSS MCH (RBC) [Entitic mass] 29.7 pg Normal 27.0 - 34.0 pg [facility] HemeAutoSS MCHC (RBC) [Mass/Vol] 33.9 g/dL Normal 31.4 - 36.0 gm/dL [facility] HemeAutoSS MCV (RBC) [Entitic vol] 87.6 fL Normal 80.0 - 100.0 fL [facility] HemeAutoSS Platelet mean volume (Bld) [Entitic vol] 7.5 fL Normal 6.4 - 10.8 fL [facility] HemeAutoSS Platelets (Bld) [#/Vol] 343.0 E9/L Normal 150.0 - 500.0 E9/L [facility] HemeAutoSS RBC (Bld) [#/Vol] 4.4 E12/L Normal 4.3 - 5.9 E12/L [facility] HemeAutoSS WBC corrected for nucl RBC Auto (Bld) [#/Vol] 9.5 E9/L Normal 4.0 - 11.0 E9/L [facility] HemeAutoSS CULTURE URINEon 02-20-2022 CULTURE URINE Normal [facility] Comment on above: Performed By: #### U RCX ####[facility] [address] [place] [id number]. Devin Suresh ACETONE SERUMon 02-18-2022 ACETONE Negative Normal NEGATIVE [facility] Comment on above: Performed By: #### A CETON ####[facility] R[address] [place], [place] [address]Av. Devin Suresh CBC AUTO DIFFon 02-18-2022 BASO # 0.0 103/ul Normal 0.0-0.1 [facility] Comment on above: Performed By: #### C BC ####[facility] [address] [place] [id number]. Devin Suresh Basophils/100 WBC (Bld) 0.4 % Normal 0.2-2.0 [facility] Comment on above: Performed By: #### C BC ####[facility] [address] [place] [address]Dr. Devin Suresh EO # 0.1 103/ul Normal 0.0-0.7 [facility] Comment on above: Performed By: #### C BC ####[facility] B[address] [place] [address]Dr. Devin Suresh Eosinophils/100 WBC (Bld) 1.0 % Normal 0.9-7.0 [facility] Comment on above: Performed By: #### C BC ####[facility] Gtaqtmxctz[address] [place] [address]Dr. Devin Kerwin Erythrocyte distribution width (RBC) [Ratio] 12.3 % Normal 11.0-15.0 [facility] Comment on above: Performed By: #### C BC ####[facility] Azp[address] [place], [place] [address]Dr. Devin Suresh Hematocrit (Bld) [Volume fraction] 34.4 % Critically low 36.0-48.0 [facility] Comment on above: Performed By: #### C BC ####[facility] [address] [place], [place] [address]Dr. Devin Suresh Hemoglobin (Bld) [Mass/Vol] 11.7 g/dL Critically low 12.0-16.0 [facility] Comment on above: Performed By: #### C BC ####[facility] U[address]qf[address] [place], [place] [address]DrMaris Tishemily Suresh IG # 0.09 10e3/ul Critically high 0.00-0.03 [facility] Comment on above: Performed By: #### C BC ####[facility] Yyqm[address] [place], [place] [address]Dr. Tishemily Suresh IG % 0.9 % Critically high 0.0-0.5 [facility] Comment on above: Performed By: #### C BC ####[facility] Uqhofxkqu[address] [place], [place] [address]DrMaris Suresh LYMPH # 2.0 103/ul Normal 1.2-3.8 [facility] Comment on above: Performed By: #### C BC ####[facility] [address]jjt[address] [place] [address]Dr. Devin Suresh Lymphocytes/100 WBC (Bld) 19.8 % Critically low 20.5-60.0 [facility] Comment on above: Performed By: #### C BC ####[facility] [address]zp[address]dnfoah[address] [place] [address]DrMaris Suresh MANUAL DIFF REQ NO Normal [facility] Comment on above: Performed By: #### C BC ####[facility] Kaxazoqsql[address] [place] [address]Dr. Devin Suresh MCH (RBC) [Entitic mass] 30.2 pg Normal 26.7-34.0 [facility] Comment on above: Performed By: #### C BC ####[facility] Joijanykaq[address] [place], [place] [address]Dr. Devin Suresh MCHC (RBC) [Mass/Vol] 34.0 g/dL Normal 29.9-35.2 [facility] Comment on above: Performed By: #### C BC ####[facility] L[address] [place], [place] [address]DrMaris Suresh MCV (RBC) [Entitic vol] 88.9 fL Normal 81.0-99.0 [facility] Comment on above: Performed By: #### C BC ####[facility] Tv[address] [place], [place] [address]Dr. Devin Suresh MONO # 0.6 103/ul Normal 0.3-0.8 [facility] Comment on above: Performed By: #### C BC ####[facility] Ppedcp[address]wi[address] [place], [place] [address]Dr. Devin Suresh Monocytes/100 WBC (Bld) 6.4 % Normal 1.7-12.0 [facility] Comment on above: Performed By: #### C BC ####[facility] [address] [place], [place] [address]DrMaris Suresh NEUT # 7.0 103/ul Critically high 1.4-6.5 [facility] Comment on above: Performed By: #### C BC ####[facility] Et[address]zwo[address] [place] [address]Dr. Devin Suresh Neutrophils/100 WBC (Bld) 71.5 % Normal 43.0-75.0 [facility] Comment on above: Performed By: #### C BC ####[facility] Xsttvrswky[address] [place] [address]Dr. Devin Suresh Platelet mean volume (Bld) [Entitic vol] 8.4 fL Critically low 9.5-13.5 [facility] Comment on above: Performed By: #### C BC ####[facility] W[address]kmue[address] [place] [address]Dr. Devin Suresh PLT 333 103/ul Normal 150-450 [facility] Comment on above: Performed By: #### C BC ####[facility] Cxxvgloyyt[address] [place] [address]Dr. Devin Suresh RBC 3.87 106/ul Critically low 4.20-5.40 [facility] Comment on above: Performed By: #### C BC ####[facility] Ulegsludgm[address] [place] [address]Dr. Devin Suresh WBC 9.8 103/ul Normal 4.0-11.0 [facility] Comment on above: Performed By: #### C BC ####[facility] Tc[address]fdr[address] [place] [address]. Dev[address] Suresh CT HEAD WO CONon 02-18-2022 CT HEAD WO CON Normal [facility] DEPAKENE/VALPROICon 02-19-20 22 DEPAKENE <3.0 Critically low 50.0-100.0 [facility] Comment on above: Performed By: #### C MP, VALP, HSTROPN ####[facility] Ogxxjgb[address] [place] [address]Dr. Devin Suresh ER URINE PROFILEon 2 Bilirubin Ql (U) Negative Normal NEGATIVE [facility] Comment on above: Performed By: #### U MICRO, ERUR ####[facility] Ulkdwvxxsl[address] [place] [address]Dr. Devin Suresh Clarity (U) CLEAR Normal CLEAR [facility] Comment on above: Performed By: #### U MICRO, ERUR ####[facility] Sz[address]uv[address] [place], [place] [address]Dr. Devin Suresh Color (U) LT. YELLOW Normal YELLOW [facility] Comment on above: Performed By: #### U MICRO, ERUR ####[facility] [address] [place], [place] [address]Dr. Devin Suresh ERUAHD A micrscopic examina tion will be performed if indicated. Normal [facility] Comment on above: Performed By: #### U MICRO, ERUR ####[facility] Ttrulfucdt[address] [place], [place] [address]Dr. Devin Suresh Glucose Ql (U) >1000 Abnormal NEGATIVE [facility] Comment on above: Performed By: #### U MICRO, ERUR ####[facility] Lcvfjdikmi[address] [place], [place] [address]Dr. Devin Suresh Hemoglobin Ql (U) SMALL Abnormal NEGATIVE [facility] Comment on above: Performed By: #### U MICRO, ERUR ####[facility] Ynin[address]dqig[address] [place], [place] [address]Dr. Devin Suresh Ketones Ql (U) 40 mg/dl Abnormal NEGATIVE [facility] Comment on above: Performed By: #### U MICRO, ERUR ####[facility] [address] [place], [place] [address]Dr. Devin Suresh LEUKOCYTES TRACE Abnormal NEGATIVE [facility] Comment on above: Performed By: #### U MICRO, ERUR ####[facility] Ifvvmahopp[address] [place], [place] [address]Dr. Devin Suresh Nitrite Ql (U) Positive Abnormal NEGATIVE [facility] Comment on above: Performed By: #### U MICRO, ERUR ####[facility] Obpsytuwai[address] [place], [place] [address]Dr. Devin Suresh pH (U) 7.0 [pH] Normal 5-9 [facility] Comment on above: Performed By: #### U MICRO, ERUR ####[facility] Ffiguycbzl[address] [place] [address]Dr. Devin Suresh Protein (U) [Mass/Vol] 100 mg/dL Abnormal NEGATIVE/ TRACE [facility] Comment on above: Performed By: #### U MICRO, ERUR ####[facility] A[address]twtu[address] [place] [address]Dr. Devin Suresh SPEC GRAVITY 1.020 Normal 1.005-<=1.[address] [place] [address] Comment on above: Performed By: #### U MICRO, ERUR ####[facility] [address] [place], [place] [address]Dr. Devin Suresh UR MICRO IND INDICATED Normal [facility] Comment on above: Performed By: #### U MICRO, ERUR ####[facility] Tsekxrvzz[address] [place], [place] [address]Dr. Devin Suresh Urobilinogen Qn (U) 1.0 {Sheyla'U}/dL Normal 0.2 - 1. 0 [facility] Comment on above: Performed By: #### U MICRO, ERUR ####[facility] Qmvrcrliug[address] [place], [place] [address]Dr. Devin Suresh LACTATE/LACTIC ACIDon 2021 Lactate [Moles/Vol] 0.9 mmol/L Normal 0.4-1.9 [facility] Comment on above: Performed By: #### L ACT ####[facility] Gcxzaclgbr[address] [place], [place] [address]Dr. Devin Suresh POINT OF CARE GLUCOSEon 01-24 Glucose [Mass/Vol] 346 mg/dL Critically high 74-106 [facility] Comment on above: Performed By: #### P OCGLUC ####[facility] Ozuigwrown[address] [place], [place] [address]Dr. Devin Suresh Glucose [Mass/Vol] 272 mg/dL Critically high 74-106 [facility] Comment on above: Performed By: #### P OCGLUC ####[facility] Eqlsxyjixg[address] [place], [place] [address]Dr. Devin Suresh PROF 14(COMP METB)on 022 Albumin [Mass/Vol] 3.3 g/dL Critically low 3.4-5.0 [facility] Comment on above: Performed By: #### C MP, VALP, HSTROPN ####[facility] Vzwpyskfvz[address] [place] [address]Dr. Devin Suresh Albumin/Globulin [Mass ratio] 0.9 {ratio} Normal [facility] Comment on above: Performed By: #### C MP, VALP, HSTROPN ####[facility] Feqiepkosl[address] [place] [address]Dr. Devin Suresh ALP [Catalytic activity/Vol] 130 U/L Critically high 46-116 [facility] Comment on above: Performed By: #### C MP, VALP, HSTROPN ####[facility] Gosmcpxzen[address] [place] [address]Dr. Devin Suresh ALT [Catalytic activity/Vol] 22 U/L Normal 14-59 [facility] Comment on above: Performed By: #### C MP, VALP, HSTROPN ####[facility] Xveoqtmffu65[address] [place] [address]Dr. Devin Suresh Anion gap [Moles/Vol] 10.9 mmol/L Normal [facility] Comment on above: Performed By: #### C MP, VALP, HSTROPN ####[facility] Zqdgojpgiq13[address] [place] [address]Dr. Devin Suresh AST [Catalytic activity/Vol] 11 U/L Critically low 15-37 [facility] Comment on above: Performed By: #### C MP, VALP, HSTROPN ####[facility] [address]ofmwknv[address] [place] [address]Dr. Devin Suresh Bilirubin [Mass/Vol] 0.9 mg/dL Normal 0.2-1.0 [facility] Comment on above: Performed By: #### C MP, VALP, HSTROPN ####[facility] [address]aszjm[address] [place] [address]Dr. Devin Suresh Calcium [Mass/Vol] 8.7 mg/dL Normal 8.5-10.1 The [facility] Comment on above: Performed By: #### C MP, VALP, HSTROPN ####[facility] Tlnzqtumje[address] [place] [address]Dr. Dvein Suresh Chloride [Moles/Vol] 100 mmol/L Normal 98-107 [facility] Comment on above: Performed By: #### C MP, VALP, HSTROPN ####[facility] Izkikpfrco[address] [place] [address]Dr. Devin Suresh CO2 [Moles/Vol] 29.4 mmol/L Normal 21.0-32.0 [facility] Comment on above: Performed By: #### C MP, VALP, HSTROPN ####[facility] Dgpheviray[address] [place] [address]Dr. Devin Suresh Creatinine [Mass/Vol] 0.87 mg/dL Normal 0.55-1.02 [facility] Comment on above: Performed By: #### C MP, VALP, HSTROPN ####[facility] [address]rcnpdlt[address] [place], [place] [address]Dr. Devin Suresh EGFR-AF LUXEMBOURGER >60 Normal >=60 [facility] Comment on above: Performed By: #### C MP, VALP, HSTROPN ####[facility] [address]abwnloce[address] [place], [place] [address]Dr. Devin Suresh EGFR-NON AF LUXEMBOURGER >60 Normal >=60 [facility] Comment on above: Performed By: #### C MP, VALP, HSTROPN ####[facility] Eloetcecmz[address] [place] [address]Dr. Devin Suresh Globulin (S) [Mass/Vol] 3.8 g/dL Normal [facility] Comment on above: Performed By: #### C MP, VALP, HSTROPN ####[facility] Wpykbtfkco[address] [place] [address]Dr. Devin Suresh Glucose [Mass/Vol] 282 mg/dL Critically high 74-106 [facility] Comment on above: Performed By: #### C MP, VALP, HSTROPN ####[facility] Dkifanqbat23[address] [place] [address]Dr. Devin Suresh Potassium [Moles/Vol] 3.3 mmol/L Critically low 3.5-5.1 [facility] Comment on above: Performed By: #### C MP, VALP, HSTROPN ####[facility] Truaaajtpi[address] [place] [address]Dr. Devin Suresh Protein [Mass/Vol] 7.1 g/dL Normal 6.4-8.2 The [facility] Comment on above: Performed By: #### C MP, VALP, HSTROPN ####[facility] Ebruqzoheq[address] [place], [place] [address]Dr. Devin Suresh Sodium [Moles/Vol] 137 mmol/L Normal 136-145 The [facility] Comment on above: Performed By: #### C MP, VALP, HSTROPN ####[facility] Guvwniekvx264[address] [place] [address]Dr. Devin Suresh Urea nitrogen [Mass/Vol] 14.0 mg/dL Normal 7.0-18.0 [facility] Comment on above: Performed By: #### C MP, VALP, HSTROPN ####[facility] Zwqxoxaqfk56[address] [place] [address]Dr. Devin Suresh Urea nitrogen/Creatinine [Mass ratio] 16.1 mg/mg Normal [facility] Comment on above: Performed By: #### C MP, VALP, HSTROPN ####[facility] [address]ncortxyo[address] [place], [place] [address]Dr. Devin Suresh TROPONIN, HIGH SENSITIVITYon 02-18-2022 HSTROP 11.4 pg/mL Normal 4.0-51.3 [facility] Comment on above: Result Comment: CUT- OFF POINTS HAVE BEEN ESTABLISHED BASED ON THE FOURTH UNIVERSAL DEFINITIONS OF MYOCARDIALINFARCTION. THE UPPER REFERENCE LIMIT (URL) OF TROPONIN, DEFINED THE 99TH PERCENTILE OFcTnI DISTRIBUTION IN A REFERENCE POPULATION, HAS BEEN CONFIRMED THE DECISION THRESHOLDFOR MS DIAGNOSIS. Performed By: #### C MP, VALP, HSTROPN ####[facility] Ojedcsdpsd[address] [place] [address]Dr. Devin Suresh URINE MICROSCOPIC ONLYon BACTERIA MODERATE Abnormal NONE SEEN [facility] Comment on above: Performed By: #### U MICRO, ERUR ####[facility] K[address]uvsjsmta[address] [place] [address]Dr. Devin Suresh Bacteria identified Cx Nom (U) INDICATED Normal [facility] Comment on above: Performed By: #### U MICRO, ERUR ####[facility] Btzeftgfgv[address] [place] [address]Dr. Devin Suresh CAST NONE SEEN Normal NONE SEEN [facility] Comment on above: Performed By: #### U MICRO, ERUR ####[facility] Pugxyycnuc6[address] [place] [address]Dr. Devin Suresh Crystals LM Nom (Urine sed) SEEN Abnormal NONE SEEN [facility] Comment on above: Performed By: #### U MICRO, ERUR ####[facility] [address]ks[address]zpef[address] [place], [place] [address]Dr. Devin Suresh Epithelial cells LM Ql (Urine sed) FEW Abnormal NONE SEEN /RARE [facility] Comment on above: Performed By: #### U MICRO, ERUR ####[facility] Abcjxyfdai14[address] [place] [address]Dr. Devin Suresh MUCOUS NONE SEEN Normal NONE SEEN [facility] Comment on above: Performed By: #### U MICRO, ERUR ####[facility] [address] [place], [place] [address]Dr. Devin Suresh RBC 2-5 Abnormal 0-2 [facility] Comment on above: Performed By: #### U MICRO, ERUR ####[facility] [address]xyrq[address] [place], [place] [address]Dr. eDvin Suresh WBC (U) [#/Vol] /uL Abnormal NONE SEEN [facility] Comment on above: Performed By: #### U MICRO, ERUR ####[facility] [address] [place], [place] [address]DrMaris Suresh XR CHEST 1 Von 02-18-2022 XR CHEST 1 V Normal [facility] CT HEAD WO CONon 02-06-2022 CT HEAD WO CON Normal [facility] CHEMISTRYOrdered By: Lab ROP User on 01-24-2022 Glucose [Mass/Vol] 66 mg/dL Normal 55 - 99 mg/dL [facility] POC Subsection Comment on above: Result Comment: Peter yhe RN/ POC Device SN [id number] Invalid Interpretation Code FT POC Subsection POC User ID [id number] Invalid Interpretation Code FT POC Subsection POC Username LAURA BRYANT Invalid Interpretation Code FT POC Subsection CHEMISTRYOrdered [...] m2 FT Chem S Globulin (S) [Mass/Vol] 3.1 g/dL Normal 1.4 - 4.0 gm/dL [facility] Remisol Glucose [Mass/Vol] 81 mg/dL Normal 55 - 199 mg/dL [facility] Lipase [Catalytic activity/Vol] 29 U/L Normal [...] 11.0 E9/L [facility] HemeAutoSS SEROLOGYOrdered By: Lawrence Natarajan on 01-24-2022 Beta hCG Ql Negative (01/24/22 11:10 AM) Normal [facility] Sero URINALYSISOrdered By: Marvin Natarajan on [...] PM) Normal Negative [facility] UA Auto SS Ina.plasma/Lithiu m.RBC (Bld) [Mass ratio] 0-3 /HPF Normal 0-3/HPF [facility]A Auto SS Nitrite Ql (U) Negative (01/24/22 12:40 PM) Normal Negative [facility] UA Auto SS pH (U) 6.0 *NA* (01/24/22 12:40 PM) Invalid Interpretation Code 5.0 - 9.0 [facility]A Auto SS Protein (U) [Mass/Vol] Trace *ABN* (01/24/22 12:40 PM) Invalid Interpretation Code Negative [facility] UA Auto SS Specific gravity (U) [Rel density] 1.010 *NA* (01/24/22 12:40 PM) Invalid Interpretation Code 1.005 - 1.030 [facility] UA Auto SS UA Spec Desc Clean Catch (01/24/22 12:40 PM) Normal FT [facility]A Auto SS Urobilinogen Qn (U) 0.9991665 {Sheyla'U}/dL Normal 0.0 - 1.0 EU/dL [facility] [...] rate/Area] mL/min/1.73 m2 Normal >=59mL/min/ 1.73 m2 [facility] Chem S GFR/1.73 sq M.predicted among non-blacks MDRD (S/P/Bld) [Vol rate/Area] mL/min/1.73 m2 Normal >=59mL/min/ 1.73 m2 [facility] Chem S Globulin (S) [Mass/Vol] 2.9 g/dL Normal 1.4 - 4.0 gm/dL [facility] Remisol Glucose [Mass/Vol] 137 mg/dL Normal 55 - 199 mg/dL [facility] Remisol Magnesium [Mass/Vol] 1.2 mg/dL Low 1.3 - 2 .4 mg/dL [facility] Remisol Potassium [Moles/Vol] 3.5 mmol/L Normal 3.5 - 5.3 mmol/L [facility] Remisol Protein [Mass/Vol] 6.2 g/dL Normal 6.0 - 7.8 gm/dL [facility] Remisol Sodium [Moles/Vol] 139 mmol/L Normal 135 - 145 mmol/L [facility] Remisol Troponin I.cardiac [Mass/Vol] 5.40 pg/mL Low 10.10 - 27.10 pg/mL [facility] Remisol Urea nitrogen [Mass/Vol] 13 mg/dL Normal 5 - 21 mg/dL [facility] Remisol Urea nitrogen/Creatinine [Mass ratio] 16 mg/mg Normal 10 - 20 [facility] Remisol CHEMISTRYOrdered By: Desi ROP User on 01-09-2022 Glucose [Mass/Vol] 178 mg/dL High 55 - 99 mg/dL [facility] POC Subsection POC Device SN [id number] Invalid Interpretation Code [facility] POC Subsection POC User ID [id number] Invalid Interpretation Code [facility] POC Subsection POC Username DANNIELLE HUFF Invalid Interpretation Code [facility] POC Subsection CHEMISTRYOrdered By: Shannen shipley on 01-09-2022 Natriuretic peptide B (Bld) [Mass/Vol] 17 pg/mL Normal 5 - 80 pg/mL [facility] HemeManSS COAGULATIONOrdered By: Richa Murphy on 01-09-2022 aPTT Coag (PPP) [Time] 36.7 s High 25.1 - 36.5 second(s) [facility] Auto Coag Fibrin D-dimer FEU (PPP) [Mass/Vol] 494 ng/mL FEU Normal 215 - 500 ng/mL FEU [facility] Auto Coag INR Coag (PPP) [Relative time] 1.0 {INR} Invalid Interpretation Code [facility] Auto Coag PT Coag (PPP) [Time] 10.5 [...] 38.6 % Normal 34.0 - 46.0 % [facility] [...] PM) Normal Negative [facility] UA Auto SS Ina.plasma/Lithiu m.RBC (Bld) [Mass ratio] 0-3 /HPF Normal [...] Desc Clean Catch (01/09/22 1:58 PM) Normal FT UA Auto SS Urobilinogen Qn (U) 0.5433467 {Sheyla'U}/dL Normal 0.0 - 1.0 EU/dL [facility] UA Auto SS WBC Auto Ql (U) Negative (01/09/22 1:58 PM) Normal Negative [facility] Auto SS WBC LM.HPF (Urine sed) [#/Area] 0-5 /HPF Normal 0-5/HPF [facility] UA Auto SS CULTURE URINEon 01-04-2022 CULTURE URINE Normal [facility] Comment on above: Performed By: #### U RCX ####[facility] [address] [place] [address]DrMaris Suresh CARDIAC LAURA 3-6on 2 CK [Catalytic activity/Vol] 38 U/L Normal 26-192 [facility] Comment on above: Performed By: #### C MREP ####[facility] [address] [place] [address]DrMaris Suresh CK.MB [Mass/Vol] 0.86 ng/mL Normal <=3.60 [facility] Comment on above: Performed By: #### C MREP ####[facility] Teuemdpiop[address] [place] [address]DrMaris Suresh HSTROP 7.8 pg/mL Normal 4.0-51.3 [facility] Comment on above: Result Comment: CUT- OFF POINTS HAVE BEEN ESTABLISHED BASED ON THE FOURTH UNIVERSAL DEFINITIONS OF MYOCARDIALINFARCTION. THE UPPER REFERENCE LIMIT (URL) OF TROPONIN, DEFINED THE 99TH PERCENTILE OFcTnI DISTRIBUTION IN A REFERENCE POPULATION, HAS BEEN CONFIRMED THE DECISION THRESHOLDFOR MS DIAGNOSIS. Performed By: #### C MREP ####[facility] [address] [place] [address]Dr[address] Dev[address] Suresh CT ABD/PELVIS WO CONon 01-02 CT ABD/PELVIS WO CON Normal [facility] CT HEAD WO CONon 01-02-2022 CT HEAD WO CON Normal [facility] ER URINE PROFILEon 2 Bilirubin Ql (U) SMALL Abnormal NEGATIVE [facility] Comment on above: Performed By: #### U MICRO, ERUR ####[facility] [address]rt[address] [place], [place] [address]Dr. Devin Suresh Clarity (U) CLEAR Normal CLEAR [facility] Comment on above: Performed By: #### U MICRO, ERUR ####[facility] Rmqnrcyqql[address] [place], [place] [address]Dr. Devin Suresh Color (U) YELLOW Normal YELLOW [facility] Comment on above: Performed By: #### U MICRO, ERUR ####[facility] Grsekybkdm[address] [place], [place] [address]Dr. Devin Suresh ERUAHD A micrscopic examina tion will be performed if indicated. Normal [facility] Comment on above: Performed By: #### U MICRO, ERUR ####[facility] [address] [place] [address]Dr. Devin Suresh Glucose Ql (U) >1000 Abnormal NEGATIVE [facility] Comment on above: Performed By: #### U MICRO, ERUR ####[facility] Efcxiap[address] [place], [place] [address]Dr. Devin Suresh Hemoglobin Ql (U) SMALL Abnormal NEGATIVE [facility] Comment on above: Performed By: #### U MICRO, ERUR ####[facility] [address] [place], [place] [address]Dr. Devin Suresh Ketones Ql (U) 15 mg/dl Abnormal NEGATIVE [facility] Comment on above: Performed By: #### U MICRO, ERUR ####[facility] Ctlgbsteui[address] [place], [place] [address]Dr. Devin Suresh LEUKOCYTES SMALL Abnormal NEGATIVE [facility] Comment on above: Performed By: #### U MICRO, ERUR ####[facility] Jsq[address]qujl[address] [place] [address]Dr. Devin Suresh Nitrite Ql (U) Positive Abnormal NEGATIVE [facility] Comment on above: Performed By: #### U MICRO, ERUR ####[facility] [address]rfu[address] [place] [address]Dr. Devin Suresh pH (U) 5.0 [pH] Normal 5-9 [facility] Comment on above: Performed By: #### U MICRO, ERUR ####[facility] Ncssozfpox[address] [place] [address]Dr. Devin Suresh Protein (U) [Mass/Vol] 100 mg/dL Abnormal NEGATIVE/ TRACE [facility] Comment on above: Performed By: #### U MICRO, ERUR ####[facility] Basuruuieq[address] [place], [place] [address]Dr. Devin Suresh SPEC GRAVITY >=1.030 Abnormal 1.005-<=1.0 25 [facility] Comment on above: Performed By: #### U MICRO, ERUR ####[facility] Esyuxrjme[address] [place], [place] [address]Dr. Devin Suresh UR MICRO IND INDICATED Normal [facility] Comment on above: Performed By: #### U MICRO, ERUR ####[facility] Hztxtlbxaq[address] [place] [address]Dr. Devin Suresh Urobilinogen Qn (U) 0.2 {Sheyla'U}/dL Normal 0.2 - 1. 0 [facility] Comment on above: Performed By: #### U MICRO, ERUR ####[facility] Btiprjenwa[address] [place], [place] [address]Dr. Devin Suresh LACTATE/LACTIC ACIDon 2021 Lactate [Moles/Vol] 1.1 mmol/L Normal 0.4-1.9 [facility] Comment on above: Performed By: #### L ACT ####[facility] [address] [place], [place] [address]Dr. Dvein Kerwin URINE MICROSCOPIC ONLYon BACTERIA LARGE Abnormal NONE SEEN [facility] Comment on above: Performed By: #### U MICRO, ERUR ####[facility] [address] [place] [address]Dr. Devin Suresh Bacteria identified Cx Nom (U) INDICATED Normal [facility] Comment on above: Performed By: #### U MICRO, ERUR ####[facility] [address]srofcskpb[address] [place] [address]Dr. Devin Suresh CAST NONE SEEN Normal NONE SEEN [facility] Comment on above: Performed By: #### U MICRO, ERUR ####[facility] Z[address]asjb[address] [place] [address]Dr. Devin Suresh Crystals LM Nom (Urine sed) NONE SEEN Normal NONE SEEN [facility] Comment on above: Performed By: #### U MICRO, ERUR ####[facility] [address] [place] [address]Dr. Devin Suresh Epithelial cells LM Ql (Urine sed) FEW Abnormal NONE SEEN /RARE [facility] Comment on above: Performed By: #### U MICRO, ERUR ####[facility] [address] [place] [address]Dr. Devin Suresh MUCOUS NONE SEEN Normal NONE SEEN [facility] Comment on above: Performed By: #### U MICRO, ERUR ####[facility] Uxecz[address]mpd[address] [place] [address]Dr. Devin Suresh RBC 0-2 Normal 0-2 [facility] Comment on above: Performed By: #### U MICRO, ERUR ####[facility] Brfsuaaiaa[address] [place] [address]Dr. Devin Suresh WBC 5-10 Abnormal NONE SEEN [facility] Comment on above: Performed By: #### U MICRO, ERUR ####[facility] Nifksnavkr[address] [place] [address]Dr. Devin Suresh XR CHEST 1 Von 01-02-2022 XR CHEST 1 V Normal [facility] CARDIAC LAURA ADMITon 022 CK [Catalytic activity/Vol] 40 U/L Normal 26-192 [facility] Comment on above: Performed By: #### B HOWARD PERAZA ####[facility] [address] [place] [address]Dr. Devin Suresh CK.MB [Mass/Vol] 0.95 ng/mL Normal <=3.60 [facility] Comment on above: Performed By: #### B HOWARD PERAZA ####[facility] [address]xxsa[address] [place] [address]Dr. Devin Suresh HSTROP 6.7 pg/mL Normal 4.0-51.3 [facility] Comment on above: Result Comment: CUT- OFF POINTS HAVE BEEN ESTABLISHED BASED ON THE FOURTH UNIVERSAL DEFINITIONS OF MYOCARDIALINFARCTION. THE UPPER REFERENCE LIMIT (URL) OF TROPONIN, DEFINED THE 99TH PERCENTILE OFcTnI DISTRIBUTION IN A REFERENCE POPULATION, HAS BEEN CONFIRMED THE DECISION THRESHOLDFOR MS DIAGNOSIS. Performed By: #### HOWARD Elizondo MP ####[facility] [address]owgcny[address] [place] [address]Dr. Devin Suresh MELANIE 53 ng/mL Normal 9-82 [facility] Comment on above: Performed By: #### HOWARD Elizondo MP ####[facility] Onfbwwivih[address] [place], [place] [address]Dr. Devin Suresh CBC AUTO DIFFon 01-01-2022 BASO # 0.1 103/ul Normal 0.0-0.1 [facility] Comment on above: Performed By: #### C BC ####[facility] Dmbqcudxyw[address] [place], [place] [address]Dr. Devin Suresh Basophils/100 WBC (Bld) 0.5 % Normal 0.2-2.0 [facility] Comment on above: Performed By: #### C BC ####[facility] Eyfurhapmk[address] [place], [place] [address]Dr. Devin Suresh EO # 0.1 103/ul Normal 0.0-0.7 [facility] Comment on above: Performed By: #### C BC ####[facility] Whoacbdoqt23[address] [place], [place] [address]Dr. Devin Suresh Eosinophils/100 WBC (Bld) 0.7 % Critically low 0.9-7.0 [facility] Comment on above: Performed By: #### C BC ####[facility] Bgwzloulkh[address] [place], [place] [address]Dr. Devin Suresh Erythrocyte distribution width (RBC) [Ratio] 12.5 % Normal 11.0-15.0 [facility] Comment on above: Performed By: #### C BC ####[facility] Atrxvhfhcg[address] [place], [place] [address]Dr. Devin Suresh Hematocrit (Bld) [Volume fraction] 43.0 % Normal 36.0-48.0 [facility] Comment on above: Performed By: #### C BC ####[facility] Mlmiidmjgg[address] [place], [place] [address]Dr. Devin Suresh Hemoglobin (Bld) [Mass/Vol] 15.2 g/dL Normal 12.0-16.0 [facility] Comment on above: Performed By: #### C BC ####[facility] Raihhpngta[address] [place], [place] [address]Dr. Devin Suresh IG # 0.05 10e3/ul Critically high 0.00-0.03 [facility] Comment on above: Performed By: #### C BC ####[facility] Tofvvqxuyc[address] [place], [place] [address]Dr. Devin Suresh IG % 0.4 % Normal 0.0-0.5 [facility] Comment on above: Performed By: #### C BC ####[facility] Irgbuczvad[address] [place], [place] [address]Dr. Devin Suresh LYMPH # 2.0 103/ul Normal 1.2-3.8 [facility] Comment on above: Performed By: #### C BC ####[facility] Dhozpxeowo[address] [place], [place] [address]Dr. Devin Suresh Lymphocytes/100 WBC (Bld) 15.1 % Critically low 20.5-60.0 [facility] Comment on above: Performed By: #### C BC ####[facility] Msayonjwvx[address] [place], [place] [address]Dr. Devin Suresh MANUAL DIFF REQ NO Normal [facility] Comment on above: Performed By: #### C BC ####[facility] Bdtkkbwyvw4236 [place] [address]DrMaris Suresh MCH (RBC) [Entitic mass] 30.2 pg Normal 26.7-34.0 [facility] Comment on above: Performed By: #### C BC ####[facility] Hmthxnimkj[address] [place] [address]DrMaris Suresh MCHC (RBC) [Mass/Vol] 35.3 g/dL Critically high 29.9-35.2 [facility] Comment on above: Performed By: #### C BC ####[facility] Mlfsckdgjq[address] [place], [place] [address]DrMaris Suresh MCV (RBC) [Entitic vol] 85.3 fL Normal 81.0-99.0 [facility] Comment on above: Performed By: #### C BC ####[facility] Momwzrlumr[address] [place], [place] [address]DrMaris Suresh MONO # 0.7 103/ul Normal 0.3-0.8 [facility] Comment on above: Performed By: #### C BC ####[facility] Lzwukiglny[address] [place], [place] [address]DrMaris Suresh Monocytes/100 WBC (Bld) 5.6 % Normal 1.7-12.0 [facility] Comment on above: Performed By: #### C BC ####[facility] Tg[address]qybqk[address] [place], [place] [address]DrMaris Suresh NEUT # 10.2 103/ul Critically high 1.4-6.5 [facility] Comment on above: Performed By: #### C BC ####[facility] Jzghoradre[address] [place], [place] [address]DrMaris Suresh Neutrophils/100 WBC (Bld) 77.7 % Critically high 43.0-75.0 [facility] Comment on above: Performed By: #### C BC ####[facility] Ctraejeycp[address] [place], [place] [address]DrMaris Suresh Platelet mean volume (Bld) [Entitic vol] 9.1 fL Critically low 9.5-13.5 [facility] Comment on above: Performed By: #### C BC ####[facility] [address] [place], [place] [address]Ba. Devin Suresh PLT 420 103/ul Normal 150-450 [facility] Comment on above: Performed By: #### C BC ####[facility] Mbchla[address]jr[address] [place], [place] [address]Iw. Devin Suresh RBC 5.04 106/ul Normal 4.20-5.40 [facility] Comment on above: Performed By: #### C BC ####[facility] Xgllovfgjc4878 [place], [place] [address]Ks. Devin Suresh WBC 13.1 103/ul Critically high 4.0-11.0 [facility] Comment on above: Performed By: #### C BC ####[facility] Abihmb[address]ud[address] [place], [place] [address]Ee. Devin Suresh [facility]on 12-23 SARS-CoV-2 (COVID-19) RNA EBONIE+probe Ql (Unsp spec) Not detected Normal NOT DETECTED [facility] Comment on above: Result Comment: When [...] for this test is supported by the [place] of Health and Human Service's declaration that [...] longer be used). Performed By: #### C VDTB ####[facility] [address] [place] [address]Dr. Devin Suresh D-DIMERon 01-01-2022 D-DIMER 0.36 mg/L FEU Normal <=0.59 [facility] Comment on above: Performed By: #### D DIM ####[facility] [address]tguupqbna[address] [place] [address]Dr. Devin Suresh D-DIMER COMMENTS SEE BELOW Normal [facility] Comment on above: Result Comment: [...] generalized hospitalization. Performed By: #### D DIM ####[facility] Qzthltjcwq[address] [place], [place] [address]Dr. Devin Suresh LACTATE/LACTIC ACIDon 2021 Lactate [Moles/Vol] 1.8 mmol/L Normal 0.4-1.9 [facility] Comment on above: Performed By: #### L ACT ####[facility] Hhvudrystv[address] [place], [place] [address]Dr. Devin Suresh PROF CHEM 8 (BAS METB)on Anion gap [Moles/Vol] 16.5 mmol/L Normal [facility] Comment on above: Performed By: #### B HOWARD PERAZA ####[facility] S[address]rmppwn[address] [place] [address]Dr. Devin Suresh Calcium [Mass/Vol] 9.9 mg/dL Normal 8.5-10.1 [facility] Comment on above: Performed By: #### B HOWARD PERAZA ####[facility] Sphmhfhfso[address] [place] [address]Dr. Devin Suresh Chloride [Moles/Vol] 98 mmol/L Normal 98-107 [facility] Comment on above: Performed By: #### B HOWARD PERAZA ####[facility] Aisbf[address]gojn[address] [place] [address]Dr. Devin Suresh CO2 [Moles/Vol] 25.6 mmol/L Normal 21.0-32.0 [facility] Comment on above: Performed By: #### B STU, CMADM ####[facility] Y[address]rf[address]buu[address] [place] [address]Dr. Devin Suresh Creatinine [Mass/Vol] 1.18 mg/dL Critically high 0.55-1.02 [facility] Comment on above: Performed By: #### B STU, CMAJONNY ####[facility] Jc[address]wckpql[address] [place] [address]Dr. Devin Suresh EGFR-AF LUXEMBOURGER 60 mL/min/1.73m2 Normal >=60 [facility] Comment on above: Performed By: #### B STU CMAJONNY ####[facility] Cl[address]jjemze[address] [place], [place] [address]Dr. Devin Suresh EGFR-NON AF LUXEMBOURGER 50 mL/min/1.73m2 Critically low >=60 [facility] Comment on above: Performed By: #### B HOWARD PERAZA ####[facility] Zofdflskjo[address] [place], [place] [address]Dr. Devin Suresh Glucose [Mass/Vol] 166 mg/dL Critically high 74-106 [facility] Comment on above: Performed By: #### B STU, CMAJONNY ####[facility] Urtt[address] [place], [place] [address]Dr. Devin Suresh Potassium [Moles/Vol] 3.1 mmol/L Critically low 3.5-5.1 [facility] Comment on above: Performed By: #### B HOWARD PERAZA ####[facility] [address]qypwbzqv[address] [place], [place] [address]Dr. Devin Suresh Sodium [Moles/Vol] 137 mmol/L Normal 136-145 [facility] Comment on above: Performed By: #### B STU CMAJONNY ####[facility] [address]ioyh[address] [place], [place] [address]Dr. Devin Suresh Urea nitrogen [Mass/Vol] 12.0 mg/dL Normal 7.0-18.0 [facility] Comment on above: Performed By: #### B HOWARD PERAZA ####[facility] Lsz[address]imiw[address] [place], [place] [address]Kr. Devin Suresh Urea nitrogen/Creatinine [Mass ratio] 10.2 mg/mg Normal [facility] Comment on above: Performed By: #### B HOWARD PERAZA ####[facility] Dmszeojfns2598 [place], [place] [address]Bv. Dvein Suresh CHEMISTRYOrdered By: SYSTEM SYSTEM on 12-08-2021 [...] rate/Area] mL/min/1.73 m2 Normal >=59mL/min/ 1.73 m2 [facility] Chem S GFR/1.73 sq M.predicted among non-blacks MDRD (S/P/Bld) [Vol rate/Area] mL/min/1.73 m2 Normal >=59mL/min/ 1.73 m2 [facility] Chem S Glucose [Mass/Vol] 236 mg/dL High 55 - 199 mg/dL [facility] Magnesium [Mass/Vol] 1.4 mg/dL Normal 1.3 - 2 .4 mg/dL [facility] Potassium [Moles/Vol] 3.8 mmol/L Normal 3.5 - 5.3 mmol/L [facility] Sodium [Moles/Vol] 138 mmol/L Normal 135 - 145 mmol/L [facility] Urea nitrogen [Mass/Vol] 16 mg/dL Normal 5 - 21 mg/dL [facility] Remisol Urea nitrogen/Creatinine [Mass ratio] 18 mg/mg Normal 10 - 20 [facility] HEMATOLOGYOrdered By: SYSTEM SYSTEM on 12-08-2021 [...] 39.5 % Normal 34.0 - 46.0 % [facility] HemeAutoSS Hemoglobin (Bld) [Mass/Vol] 13.7 g/dL Normal 12.0 - 16.0 gm/dL [facility] HemeAutoSS MCH (RBC) [Entitic mass] 30.5 pg Normal 27.0 - 34.0 pg [facility] HemeAutoSS MCHC (RBC) [Mass/Vol] 34.7 g/dL Normal 31.4 - 36.0 gm/dL [facility] HemeAutoSS MCV (RBC) [Entitic vol] 87.7 fL Normal 80.0 - 100.0 fL [facility] HemeAutoSS Platelet mean volume (Bld) [Entitic vol] 7.3 fL Normal 6.4 - 10.8 fL [facility] HemeAutoSS Platelets (Bld) [#/Vol] 306.0 E9/L Normal 150.0 - 500.0 E9/L [facility] HemeAutoSS RBC (Bld) [#/Vol] 4.5 E12/L Normal 4.3 - 5.9 E12/L [facility] HemeAutoSS WBC corrected for nucl RBC Auto (Bld) [#/Vol] 7.7 E9/L Normal 4.0 - 11.0 E9/L [facility] HemeAutoSS Microscopic Urinalysison Bacteria, UA FEW Abnormal Negative /HPF [facility] Epithelial Cells, UA 3-5 /HPF [facility] RBC, UA 0-2 [facility] WBC, UA 3-5 [facility] No Panel Informationon 12-08 Interpretation and review of laboratory results Abnormal [facility] UR Drug Screen Rapidon 12-08 Drug Screen Comment see below Normal [facility] Comment on above: Result Comment: This method is a screening test to detect only these drug classes as part of a medical workup. Confirmatory testing by another method should be ordered if clinically indicated. Performed By: #### U DSNC #### [facility] [address] [place] [address] UR Amphetamines Rapid Screen Negative Normal Negative < [facility] Comment on above: Result Comment: Effe ctive: 12/07/17 Methodology and/or Reference Range-Cutoff has changed. Performed By: #### U DSNC #### [facility] [address] [place] [address] UR Barbiturates Rapid Screen Negative Normal Negative < [facility] Comment on above: Result Comment: Effe ctive: 12/07/17 Methodology and/or Reference Range-Cutoff has changed. Performed By: #### U DSNC #### [facility] [address] [place] [address] UR Benzo Rapid Screen Negative Normal Negative < [facility] Comment on above: Result Comment: Effe ctive: 12/07/17 Methodology and/or Reference Range-Cutoff has changed. Performed By: #### U DSNC #### [facility] [address] [place] [address] UR Cannabinoids Rapid Screen Negative Normal Negative < [facility] Comment on above: Performed By: #### U DSNC #### [facility] [address] [place] [address] UR Cocaine Rapid Screen Negative Normal Negative < [facility] Comment on above: Result Comment: Effe ctive: 12/07/17 Methodology and/or Reference Range-Cutoff has changed. Performed By: #### U DSNC #### [facility] [address] [place] [address] UR Opiates Rapid Screen Negative Normal Negative < [facility] Comment on above: Result Comment: Effe ctive: 12/07/17 Methodology and/or Reference Range-Cutoff has changed. Performed By: #### U DSNC #### [facility] [address] [place] [address] UR PCP Rapid Screen Negative Normal Negative < [facility] Comment on above: Performed By: #### U DSNC #### [facility] [address] [place] [address] UR Tricyclics Rapid Screen - Rapid Positive Abnormal Negative < [facility] Comment on above: Result Comment: Effe ctive: 12/07/17 Methodology and/or Reference Range-Cutoff has changed. Performed By: #### U DSNC #### [facility] [address] [place] [address] Urinalysis with Reflex to Cu ltureon 12-08-2021 Bilirubin Urine Negative Negative [facility] Blood, Urine Negative Negative [facility] Clarity, UA Clear Clear [facility] Color, UA Yellow Straw/Yello w [facility] Glucose, Ur 250 mg/dL Abnormal Negative [facility] Ketones Ql (U) Negative Negative mg/dL [facility] Leukocyte esterase Test strip Ql (U) TRACE Abnormal Negative [facility] Nitrite, Urine Negative Negative [facility] pH, UA 5.0 5 - 9 [facility] Protein, UA Negative Negative mg/dL [facility] Specific [place], UA 1.015 1.005 - 1.03 [facility] Urine Reflex to Culture Not Indicated [facility] Urobilinogen, Urine 0.2 [facility] Urinalysis, reflex to cultur turner 12-08-2021 Urine Reflexed to Culture Not Indicated Normal [facility] Comment on above: Performed By: #### U AR #### [facility] [address] [place] [address] Bilirubin Ql (U) Negative Normal Negative [facility] Comment on above: Performed By: #### U AR #### [facility] [address] [place] [address] Clarity (U) Clear Normal Clear [facility] Comment on above: Performed By: #### U AR #### [facility] [address] [place] [address] Color (U) Yellow Normal Straw/Wise [facility] Comment on above: Performed By: #### U AR #### [facility] [address] [place] [address] Glucose Ql (U) 250 mg/dL Abnormal Negative [facility] Comment on above: Performed By: #### U AR #### [facility] [address] [place] [address] Hemoglobin Ql (U) Negative Normal Negative [facility] Comment on above: Performed By: #### U AR #### [facility] [address] [place] [address] Ketones Ql (U) Negative Normal Negative [facility] Comment on above: Performed By: #### U AR #### [facility] [address] [place] [address] Leukocyte esterase Test strip Ql (U) TRACE Abnormal Negative [facility] Comment on above: Performed By: #### U AR #### [facility] [address] [place] [address] Nitrite Ql (U) Negative Normal Negative [facility] Comment on above: Performed By: #### U AR #### [facility] [address] [place] [address] pH (U) 5.0 [pH] Normal 5.0-9.0 [facility] Comment on above: Performed By: #### U AR #### [facility] [address] [place] [address] Protein Ql (U) Negative Normal Negative [facility] Comment on above: Performed By: #### U AR #### [facility] [address] [place] [address] Specific gravity (U) [Rel density] 1.015 Normal 1.005-1.03 [facility] Comment on above: Performed By: #### U AR #### [facility] [address] [place] [address] Urobilinogen Qn (U) 0.2 {Sheyla'U}/dL Normal < 2.0 [facility] Comment on above: Performed By: #### U AR #### [facility] [address] [place] [address] Urine Drug Screen, Comprehen siveon 12-08-2021 Amphetamine Screen, Urine Negative Negative <500 ng/mL [facility] Comment on above: Effective: 12/07/17 Methodology and/or Reference Range-Cutoff has changed. Barbiturate Screen, Ur Negative Negative <200 ng/mL [facility] Comment on above: Effective: 12/07/17 Methodology and/or Reference Range-Cutoff has changed. Benzodiazepine Screen, Urine Negative Negative <150 ng/mL [facility] Comment on above: Effective: 12/07/17 Methodology and/or Reference Range-Cutoff has changed. Cannabinoid Scrn, Ur Negative Negativ e <50 ng/mL [facility] Cocaine Metabolite Screen, Urine Negative Negative <150 ng/mL [facility] Comment on above: Effective: 12/07/17 Methodology and/or Reference Range-Cutoff has changed. Drug Screen Comment: see below [facility] Comment on above: This method is a scr eening test to detect only these drug classes as part of a medical workup. Confirmatory testing by another method should be ordered if clinically indicated. Interpretation and review of laboratory results Abnormal [facility] Opiate Scrn, Ur Negative Negative <100 ng/mL [facility] Comment on above: Effective: 12/07/17 Methodology and/or Reference Range-Cutoff has changed. PCP Screen, Urine Negative Negative <25 ng/mL [facility] Tricyclic Positive Abnormal Negative <300 ng/mL [facility] Comment on above: Effective: 12/07/17 Methodology and/or Reference Range-Cutoff has changed. [facility] Urine Microscopicon 12-09-19 22 Epithelial cells LM Ql (Urine sed) 3-5 Normal [facility] Comment on above: Performed By: #### U DOMENIC #### [facility] [address] [place] [address] Urine Bacteria FEW Abnormal Negative [facility] Comment on above: Performed By: #### U DOMENIC #### [facility] [address] [place] [address] Urine RBC 0-2 Normal 0-2 [facility] Comment on above: Performed By: #### U DOMENIC #### [facility] [address] [place] [address] Urine WBC 3-5 Normal 0-5 [facility] Comment on above: Performed By: #### U DOMENIC #### [facility] [address] [place] [address] HEP B SURFACE ANTIGEN SCREEN on 12-05-2021 HBsAg Screen Negative Normal Negative [facility] Comment on above: Performed By: #### H BSANS ####[facility] [address] [place] [phone]. Devin Suresh HEPATITIS C ANTIBODYon 12-05 Hep C Virus Ab 0.1 s/co ratio Normal 0.0-0.9 [facility] Comment on above: Result Comment: Nega tive: < 0.8 Indeterminate: 0.8 - 0.9 Positive: > 0.9 . HCV antibody alone does not differentiate between previous resolved infection and active infection. The CDC and current clinical guidelines recommend that a positive HCV antibody result be followed up with an HCV RNA test to support the diagnosis of acute HCV infection. [facility] Hepatitis C Virus (HCV) RNA, Diagnosis, EBONIE (882999) and Hepatitis C Virus (HCV) Antibody with reflex to Quantitative Real-time PCR (116208). Performed By: #### H CV ####[facility] [address] [place] [phone]. Devin Suresh HIV 1 AND 2 WITH REFLEXon HIV Screen 4th Generation wRfx Non-Reactive Normal Non Reactive [facility] Comment on above: Result Comment: HIV NegativeHIV-1/HIV-2 antibodies and HIV-1 p24 antigen were NOT detected.There is no laboratory evidence of HIV infection. Performed By: #### H IV12 ####[facility] [address] [place] [phone]. Devin Suresh RPR QUANTon 12-05-2021 Rapid Plasma Reagin, Quant Non-Reactive Normal NonRea<1:1 [facility] Comment on above: Result Comment: Plea se Note: This test does not meet current guidelines forscreening and diagnosis of syphilis. This test is intended forfollowing treatment response in patients being treated forsyphilis infection. To screen for syphilis infection, a reflexcascade that includes both RPR and a treponema-specific assayshould be utilized, such as Treponema pallidum (Syphilis)Screening [place] (975210) or Rapid Plasma Reagin (RPR) TestWith Reflex to Quantitative RPR and Confirmatory Treponemapallidum Antibodies (587424). Performed By: #### R PRQ ####[facility] [address] [place], [place] [address]Dr. Devin Suresh CBC AUTO DIFFon 12-04-2021 BASO # 0.1 103/ul Normal 0.0-0.1 [facility] Comment on above: Performed By: #### C BC ####[facility] [address] [place], [place] [address]Dr. Devin Suresh Basophils/100 WBC (Bld) 0.9 % Normal 0.2-2.0 [facility] Comment on above: Performed By: #### C BC ####[facility] [address] [place], [place] [address]Dr. Devin Suresh EO # 0.2 103/ul Normal 0.0-0.7 [facility] Comment on above: Performed By: #### C BC ####[facility] [address] [place], [place] [address]Dr. Devin Suresh Eosinophils/100 WBC (Bld) 2.8 % Normal 0.9-7.0 [facility] Comment on above: Performed By: #### C BC ####[facility] [address] [place], [place] [address]Dr. Devin Suresh Erythrocyte distribution width (RBC) [Ratio] 12.0 % Normal 11.0-15.0 [facility] Comment on above: Performed By: #### C BC ####[facility] [address] [place], [place] [address]Dr. Devin Suresh Hematocrit (Bld) [Volume fraction] 34.6 % Critically low 36.0-48.0 [facility] Comment on above: Performed By: #### C BC ####[facility] [address] [place] [address]Dr. Devin Suresh Hemoglobin (Bld) [Mass/Vol] 11.7 g/dL Critically low 12.0-16.0 [facility] Comment on above: Performed By: #### C BC ####[facility] [address] [place] [address]Dr. Devin Suresh IG # 0.04 10e3/ul Critically high 0.00-0.03 [facility] Comment on above: Performed By: #### C BC ####[facility] [address] [place] [address]Dr. Devin Kerwin IG % 0.6 % Critically high 0.0-0.5 [facility] Comment on above: Performed By: #### C BC ####[facility] [address] [place], [place] [address]Dr. Tishemily Kerwin LYMPH # 2.0 103/ul Normal 1.2-3.8 [facility] Comment on above: Performed By: #### C BC ####[facility] [address] [place], [place] [address]Dr. Devin Kerwin Lymphocytes/100 WBC (Bld) 31.2 % Normal 20.5-60.0 [facility] Comment on above: Performed By: #### C BC ####[facility] [address] [place] [address]Dr. Tishemily Suresh MANUAL DIFF REQ NO Normal [facility] Comment on above: Performed By: #### C BC ####[facility] [address] [place], [place] [address]Dr. Devin Kerwin MCH (RBC) [Entitic mass] 30.8 pg Normal 26.7-34.0 [facility] Comment on above: Performed By: #### C BC ####[facility] [address] [place] [address]Dr. Devin Suresh MCHC (RBC) [Mass/Vol] 33.8 g/dL Normal 29.9-35.2 [facility] Comment on above: Performed By: #### C BC ####[facility] [address] [place] [phone]. Devin Suresh MCV (RBC) [Entitic vol] 91.1 fL Normal 81.0-99.0 [facility] Comment on above: Performed By: #### C BC ####[facility] [address] [place] [phone]. Devin Kerwin MONO # 0.4 103/ul Normal 0.3-0.8 [facility] Comment on above: Performed By: #### C BC ####[facility] [address] [place] [address]Dr. Devin Kerwin Monocytes/100 WBC (Bld) 6.6 % Normal 1.7-12.0 [facility] Comment on above: Performed By: #### C BC ####[facility] [address] [place], [place] [address]Dr. Devin Suresh NEUT # 3.7 103/ul Normal 1.4-6.5 [facility] Comment on above: Performed By: #### C BC ####[facility] [address] [place], [place] [address]Dr. Tishemily Suresh Neutrophils/100 WBC (Bld) 57.9 % Normal 43.0-75.0 [facility] Comment on above: Performed By: #### C BC ####[facility] Af[address] [place], [place] [address]Dr. Devin Kerwin Platelet mean volume (Bld) [Entitic vol] 9.0 fL Critically low 9.5-13.5 The [facility] Comment on above: Performed By: #### C BC ####[facility] [address] [place], [place] [address]Dr. Devin Suresh PLT 272 103/ul Normal 150-450 [facility] Comment on above: Performed By: #### C BC ####[facility] [address] [place] [phone]. Devin Suresh RBC 3.80 106/ul Critically low 4.20-5.40 [facility] Comment on above: Performed By: #### C BC ####[facility] [address] [place] [phone]. Devin Suresh WBC 6.4 103/ul Normal 4.0-11.0 [facility] Comment on above: Performed By: #### C BC ####[facility] [address] [place] [phone]. Devin Suresh HIV 1/2 RAPID (EXPOSURE ONLY )on 12-04-2021 HIV AB Negative Normal [facility] Comment on above: Performed By: #### R PDHIV ####[facility] [address] [place] [phone]. Devin Suresh HIV AG Negative Normal [facility] Comment on above: Performed By: #### R PDHIV ####[facility] [address] [place] [phone]. Devin Suresh INTERNAL CONTROLS Within Normal Limits Normal Wi thin Normal Limits [facility] Comment on above: Performed By: #### R PDHIV ####[facility] [address] [place] [phone]. Devin Suresh RAPID HIV INFO SEE BELOW Normal [facility] Comment on above: Result Comment: This test is used for the initial screening of the exposure source. Confirmation of all results will be obtained through reference lab testing. Performed By: #### R PDHIV ####[facility] [address] [place] [phone]. Devin Suresh PROF 14(COMP METB)on 022 Albumin [Mass/Vol] 2.7 g/dL Critically low 3.4-5.0 Th e [facility] Comment on above: Performed By: #### C MP ####[facility] [address] [place] [phone]. Devin Suresh Albumin/Globulin [Mass ratio] 0.9 {ratio} Normal [facility] Comment on above: Performed By: #### C MP ####[facility] [address] [place] [phone]. Devin Suresh ALP [Catalytic activity/Vol] 98 U/L Normal 46-116 [facility] Comment on above: Performed By: #### C MP ####[facility] [address] [place] [phone]. Devin Suresh ALT [Catalytic activity/Vol] 17 U/L Normal 14-59 [facility] Comment on above: Performed By: #### C MP ####[facility] Rx[address]ilib[address] [place] [phone]. Devin Suresh Anion gap [Moles/Vol] 12.0 mmol/L Normal Th [facility] Comment on above: Performed By: #### C MP ####[facility] [address]vr[address] [place] [phone]. Devin Kerwin AST [Catalytic activity/Vol] 6 U/L Critically low 15-37 [facility] Comment on above: Performed By: #### C MP ####[facility] [address] [place] [address]Dr. Devin Kerwin Bilirubin [Mass/Vol] 0.3 mg/dL Normal 0.2-1.0 [facility] Comment on above: Performed By: #### C MP ####[facility] [address] [place] [phone]. Devin Kerwin Calcium [Mass/Vol] 8.1 mg/dL Critically low 8.5-10.1 [facility] Comment on above: Performed By: #### C MP ####[facility] [address] [place] [phone]. Devin Suresh Chloride [Moles/Vol] 108 mmol/L Critically high 98-107 [facility] Comment on above: Performed By: #### C MP ####[facility] [address] [place] [phone]. Devin Kerwin CO2 [Moles/Vol] 25.4 mmol/L Normal 21.0-32.0 [facility] Comment on above: Performed By: #### C MP ####[facility] L[address]ws[address] [place] [phone]. Devin Kerwin Creatinine [Mass/Vol] 0.80 mg/dL Normal 0.55-1.02 [facility] Comment on above: Performed By: #### C MP ####[facility] [address] [place] [address]Dr. Devin Suresh EGFR-AF LUXEMBOURGER >60 Normal >=60 [facility] Comment on above: Performed By: #### C MP ####[facility] [address] [place] [phone]. Devin Suresh EGFR-NON AF LUXEMBOURGER >60 Normal >=60 [facility] Comment on above: Performed By: #### C MP ####[facility] [address] [place] [phone]. Devin Suresh Globulin (S) [Mass/Vol] 3.0 g/dL Normal [facility] Comment on above: Performed By: #### C MP ####[facility] [address] [place] [address]Dr. Devin Suresh Glucose [Mass/Vol] 153 mg/dL Critically high 74-106 [facility] Comment on above: Performed By: #### C MP ####[facility] [address] [place] [address]Dr. Devin Suresh Potassium [Moles/Vol] 3.4 mmol/L Critically low 3.5-5.1 [facility] Comment on above: Performed By: #### C MP ####[facility] [address] [place] [address]Dr. Devin Suresh Protein [Mass/Vol] 5.7 g/dL Critically low 6.4-8.2 [facility] Comment on above: Performed By: #### C MP ####[facility] [address] [place] [address]Dr. Devin Suresh Sodium [Moles/Vol] 142 mmol/L Normal 136-145 [facility] Comment on above: Performed By: #### C MP ####[facility] [address] [place] [address]Dr. Devin Suresh Urea nitrogen [Mass/Vol] 16.0 mg/dL Normal 7.0-18.0 [facility] Comment on above: Performed By: #### C MP ####[facility] [address] [place], [place] [address]Ns. Devin Suresh Urea nitrogen/Creatinine [Mass ratio] 20.0 mg/mg Normal [facility] Comment on above: Performed By: #### C MP ####[facility] [address] [place], [place] [address]Ev. Devin Suresh XR SACRUM_COCCYXon XR SACRUM_COCCYX Normal [facility] CHEMISTRYOrdered By: Lab ROP User on 11-06-2021 Glucose [Mass/Vol] 123 mg/dL High 55 - 99 mg/dL [facility] POC Subsection Comment on above: Result Comment: Peter yeh RN/ POC Device SN [id number] Invalid Interpretation Code [facility] POC Subsection POC User ID [id number] Invalid Interpretation Code [facility] POC Subsection POC Username LATONYA LORENZO Invalid Interpretation Code [facility] POC Subsection Glucose [Mass/Vol] 94 mg/dL Normal 55 - 99 mg/dL [facility] POC Subsection Comment on above: Result Comment: Peter yeh RN/ POC Device SN [id number] Invalid Interpretation Code [facility] POC Subsection POC User ID [id number] Invalid Interpretation Code [facility] POC Subsection POC Username LATONYA LORENZO Invalid Interpretation Code [facility] POC Subsection CHEMISTRYOrdered By: Lab ROP User on 11-05-2021 Glucose [Mass/Vol] 130 mg/dL High 55 - 99 mg/dL [facility] POC Subsection Comment on above: Result Comment: Prema pipre Meter POC Device SN [id number] Invalid Interpretation Code [facility] POC Subsection POC User ID [id number] Invalid Interpretation Code [facility] POC Subsection POC Username WALE KERN Invalid Interpretation Code [facility] POC Subsection CHEMISTRYOrdered By: SYSTEM SYSTEM on 11-05-2021 HCG.beta subunit Qn 9 m[IU]/mL High 1 - 3 mIU/mL [facility] Remisol CEFEPIME:SUSC:PT:ISOLATE:ORD QN:MICon 11-04-2021 Cefepime DOMENIC [Susc] 10,000 cfu/ml Proteu s mirabilis 50,000 cfu/ml Staphylococcus species [facility] CHEMISTRYOrdered By: SYSTEM SYSTEM on 11-04-2021 Albumin [...] m2 [facility] Chem S Globulin (S) [Mass/Vol] 3.5 g/dL [...] DOMENIC [Susc]on 2021 Proteus mirabilis Proteus mirabilis [facility] HEMATOLOGYOrdered By: SYSTEM SYSTEM on 11-04-2021 Basophils/100 [...] (Urine sed) [#/Area] 5-8 /HPF Normal 0-2/HPF [facility] UA Aut o SS Glucose Test strip (U) [Mass/Vol] 3+ *ABN* (11/04/21 12:55 PM) Invalid Interpretation Code Negative [facility] UA Auto SS Hemoglobin Ql (U) Trace *ABN* (11/04/21 12:55 PM) Invalid Interpretation Code Negative [facility] UA Auto SS Ketones (U) [Mass/Vol] Negative (11/04/21 12:55 PM) Normal Negative [facility] UA Auto SS Ina.plasma/Lithiu m.RBC (Bld) [Mass ratio] 0-3 /HPF Normal 0-3/HPF [facility] UA Auto SS Mucus Ql (Urine sed) Trace (11/04/21 12:55 PM) Normal [facility] UA Auto SS Nitrite Ql (U) Positive *ABN* (11/04/21 12:55 PM) Invalid Interpretation Code Negative [facility] UA Auto SS pH (U) 6.0 *NA* (11/04/21 12:55 PM) Invalid Interpretation Code 5.0 - 9.0 [facility] UA Auto SS Protein (U) [Mass/Vol] Negative (11/04/21 12:55 PM) Normal Negative [facility] UA Auto SS Specific gravity (U) [Rel density] >=1.030 *NA* (11/04/21 12:55 PM) Invalid Interpretation Code 1.005 - 1.030 [facility] UA Auto SS UA Spec Desc Clean Catch (11/04/21 12:55 PM) Normal [facility] UA Auto SS Urobilinogen Qn (U) 0.6044383 {Sheyla'U}/dL Normal 0.0 - 1.0 EU/dL [facility] UA Auto SS WBC Auto Ql (U) Negative (11/04/21 12:55 PM) Normal Negative [facility] UA Auto SS WBC casts LM.LPF (Urine sed) [#/Area] 0-3 (11/04/21 12:55 PM) Normal [facility] UA Auto SS WBC LM.HPF (Urine sed) [#/Area] 0-5 /HPF Normal 0-5/HPF [facility] UA Auto SS CHEMISTRYOrdered By: SYSTEM SYSTEM on 10-09-2021 Anion gap [Moles/Vol] 14 mmol/L Normal 6 - 16 mEq/L [facility] Remisol Calcium [Mass/Vol] 8.5 mg/dL Low 8.9 - 11. 1 mg/dL [facility] Remisol Chloride [Moles/Vol] 103 mmol/L Normal 101 [...] 60 mL/min/1.73 m2 Normal >=59mL/min/ 1.73 m2 [facility] S Glucose [Mass/Vol] 158 mg/dL Normal 55 - 199 mg/dL [facility] Rem[facility] Potassium [Moles/Vol] 3.7 mmol/L Normal 3.5 - 5.3 mmol/L [facility] Sodium [Moles/Vol] 135 mmol/L Normal 135 - 145 mmol/L [facility] Urea nitrogen [Mass/Vol] 13 mg/dL Normal 5 - 21 mg/dL [facility] Urea nitrogen/Creatinine [Mass ratio] 13 mg/mg Normal 10 - 20 [facility] HEMATOLOGYOrdered By: SYSTEM SYSTEM on 10-09-2021 [...] Ag Negative (10/09/21 4:48 PM) Normal Negative [facility] Sero Influenzae B Ag Negative (10/09/21 4:48 PM) Normal Negative [facility] Man Sero Rapid COV Int NEG Ctl Pass (10/09/21 4:48 PM) Normal FT Man Sero Rapid COV Int POS Ctl Pass (10/09/21 4:48 PM) Normal [facility] Man Sero SARS-CoV+SARS-CoV-2 (COVID-19) Ag IA.rapid Ql (Resp) Not Detected (10/09/21 4:48 PM) Normal Not Detected [facility]ero SEROLOGYOrdered By: Shannen evans on 10-09-2021 Beta hCG Ql Positive (10/09/21 4:48 PM) Normal [facility] Man [facility]ero CHEMISTRYOrdered By: SYSTEM SYSTEM on [...] 60 mL/min/1.73 m2 Normal >=59mL/min/ 1.73 m2 [facility] Chem S Globulin (S) [Mass/Vol] 3.2 g/dL Normal 1.4 - 4.0 gm/dL [facility] Glucose [Mass/Vol] 71 mg/dL Normal 55 - 199 mg/dL [facility] Potassium [Moles/Vol] 2.9 mmol/L Low 3.5 - 5.3 mmol/L [facility] Protein [Mass/Vol] 7.0 g/dL Normal 6.0 [...] (Bld) [Mass fraction] 9.1 % High <=5.9% [facility] ChemAutoSS CHEMISTRYOrdered By: Breanna Hammond on 10-03-2021 [...] verified using smear estimate Slide reviewed by BREA. RBC (Bld) [#/Vol] 4.4 E12/L Normal 4.3 - 5.9 E12/L [facility] HemeAutoSS WBC corrected for nucl RBC Auto (Bld) [#/Vol] 8.9 E9/L Normal 4.0 - 11.0 E9/L [facility] HemeAutoSS CHEMISTRYOrdered By: SYSTEM SYSTEM on 09-27-2021 Anion gap [Moles/Vol] 17 mmol/L High 6 - 16 mEq/L [facility] Remisol Calcium [Mass/Vol] 9.0 mg/dL Normal [...] 60 mL/min/1.73 m2 Normal >=59mL/min/ 1.73 m2 [facility] S Glucose [Mass/Vol] 228 mg/dL High 55 - 199 mg/dL [facility] Remisol Potassium [Moles/Vol] 3.5 mmol/L Normal 3.5 - 5.3 mmol/L [facility] Sodium [Moles/Vol] 142 mmol/L Normal 135 - 145 mmol/L [facility] Urea nitrogen [Mass/Vol] 21 mg/dL Normal 5 - 21 mg/dL [facility]isol Urea nitrogen/Creatinine [Mass ratio] 21 mg/mg High 10 - 20 [facility] Remisol HEMATOLOGYOrdered By: Chapis Cuellar on 09-27-2021 Erythrocyte distribution width (RBC) [Ratio] 13.2 % Normal 10.9 - 14.2 % [facility] Hematocrit (Bld) [Volume fraction] 38.8 % Normal 34.0 - 46.0 % [facility] Hemoglobin (Bld) [Mass/Vol] 13.6 g/dL Normal 12.0 - 16.0 gm/dL [facility] HemeAutoSS MCH (RBC) [Entitic mass] 31.5 pg Normal 27.0 - 34.0 pg [facility] MCHC (RBC) [Mass/Vol] 35.0 g/dL Normal 31.4 - 36.0 gm/dL [facility] HemeAutoSS MCV (RBC) [Entitic vol] 90.2 fL Normal 80.0 - 100.0 fL [facility] HemeAutoSS Platelet mean volume (Bld) [Entitic vol] 7.5 fL Normal 6.4 - 10.8 fL [facility] Platelets (Bld) [#/Vol] 358.0 E9/L Normal 150.0 - 500.0 E9/L [facility] HemeAutoSS RBC (Bld) [#/Vol] 4.3 E12/L Normal 4.3 - 5.9 E12/L [facility] HemeAutoSS WBC corrected for nucl RBC Auto (Bld) [#/Vol] 7.5 E9/L Normal 4.0 - 11.0 E9/L [facility] COVID Quick Testingon 2021 Result Positive [employer] Other Basic Metabolic Panelon 05-25 Anion gap [Moles/Vol] 9 mmol/L Low 10 - 2 0 mmol/L [facility] Calcium [Mass/Vol] 7.8 mg/dL Low 8.4 - 10. 2 mg/dL [facility] Chloride [Moles/Vol] 119 mmol/L High 98 - 10 8 mmol/L [facility] Creatinine [Mass/Vol] 0.72 mg/dL 0.40 - 1.10 [facility] GFR/1.73 sq M predicted among non-blacks MDRD (S/P/Bld) [Vol rate/Area] The eGFR should be used for monitoring renal function only and not for medication dosing. [facility] GFR/1.73 sq M.predicted CKD-EPI (S/P/Bld) [Vol rate/Area] 103 >=60 mL/min/1.73 m2 [facility] Glucose [Mass/Vol] 70 mg/dL 65 - 99 mg/dL [facility] HCO3 [Moles/Vol] 22 mmol/L 21 - 32 mmol/L [facility] Interpretation and review of laboratory results Abnormal [facility] Potassium [Moles/Vol] 3.5 mmol/L 3.5 - 5.1 mmol/L [facility] Sodium [Moles/Vol] 146 mmol/L High 135 - 145 mmol/L [facility] Urea nitrogen [Mass/Vol] 8 mg/dL 8 - 25 mg/dL [facility] Urea nitrogen/Creatinine [Mass ratio] 11.1 mg/mg [facility] CBCon 06-05-2020 Erythrocyte distribution width (RBC) [Entitic vol] 12.2 % 11.6 - 14.8 % [facility] Hematocrit (Bld) [Volume fraction] 35.1 % Low 36 - 46 % [facility] Hemoglobin (Bld) [Mass/Vol] 11.4 g/dL Low 12 - 16 g/dL [facility] Interpretation and review of laboratory results Abnormal [facility] MCH (RBC) [Entitic mass] 30.6 pg 26 - 34 pg [facility] MCHC (RBC) [Mass/Vol] 32.5 g/dL 31 - 3 7 g/dL [facility] MCV (RBC) [Entitic vol] 94.4 fL 80 - 100 fL [facility] Nucleated RBC (Bld) [#/Vol] 0.00 10*3/uL [facility] Nucleated RBC/100 WBC (Bld) [Ratio] 0.0 % [facility] Platelet mean volume (Bld) [Entitic vol] 9.4 fL 9.4 - 12.4 fL [facility] Platelets (Bld) [#/Vol] 191 10*3/uL [facility] RBC (Bld) [#/Vol] 3.72 10*6/uL Low [facility] ealth WBC (Bld) [#/Vol] 5.46 10*3/uL [facility] Lactic Acid, Plasmaon 2020 Interpretation and review of laboratory results Normal [facility] Lactate [Moles/Vol] 1.9 mmol/L 0.6 - 2 mmol/L [facility] Magnesiumon 06-05-2020 Magnesium [Mass/Vol] 1.8 mg/dL 1.6 - 2 .4 mg/dL [facility] Otheron 06-05-2020 Interpretation and review of laboratory results Normal [facility] POC Glucoseon 06-05-2020 Glucose [Mass/Vol] 201 mg/dL High 65 - 99 mg/dL [facility] Interpretation and review of laboratory results Abnormal [facility] Glucose [Mass/Vol] 143 mg/dL High 65 - 99 mg/dL [facility] Interpretation and review of laboratory results Abnormal [facility] Glucose [Mass/Vol] 93 mg/dL 65 - 99 mg/dL [facility] TSHon 06-05-2020 Interpretation and review of laboratory results Normal [facility] TSH Qn 2.35 m[IU]/L [facility] Basic Metabolic Panelon 05-25 Anion gap [Moles/Vol] 11 mmol/L 10 - 2 0 mmol/L [facility] Calcium [Mass/Vol] 7.8 mg/dL Low 8.4 - 10. 2 mg/dL [facility] Chloride [Moles/Vol] 115 mmol/L High 98 - 10 8 mmol/L [facility] Creatinine [Mass/Vol] 0.90 mg/dL 0.40 - 1.10 [facility] GFR/1.73 sq M predicted among non-blacks MDRD (S/P/Bld) [Vol rate/Area] The eGFR should be used for monitoring renal function only and not for medication dosing. [facility] GFR/1.73 sq M.predicted CKD-EPI (S/P/Bld) [Vol rate/Area] 79 >=60 mL/min/1.73 m2 [facility] Glucose [Mass/Vol] 107 mg/dL High 65 - 99 mg/dL [facility] HCO3 [Moles/Vol] 22 mmol/L 21 - 32 mmol/L [facility] Interpretation and review of laboratory results Abnormal [facility] Potassium [Moles/Vol] 3.7 mmol/L 3.5 - 5.1 mmol/L [facility] Sodium [Moles/Vol] 144 mmol/L 135 - 145 mmol/L [facility] Urea nitrogen [Mass/Vol] 14 mg/dL 8 - 25 mg/dL [facility] Urea nitrogen/Creatinine [Mass ratio] 15.6 mg/mg [facility] CBC WITH AUTO DIFFERENTIALon 06-04-2020 Basophils (Bld) [#/Vol] 0.08 10*3/uL [facility] Basophils/100 WBC (Bld) 1.1 % [facility] Eosinophils (Bld) [#/Vol] 0.16 10*3/uL [facility] Eosinophils/100 WBC (Bld) 2.2 % [facility] Erythrocyte distribution width (RBC) [Entitic vol] 12.3 % 11.6 - 14.8 % [facility] Hematocrit (Bld) [Volume fraction] 36.0 % 36 - 46 % [facility] Hemoglobin (Bld) [Mass/Vol] 11.8 g/dL Low 12 - 16 g/dL [facility] Immature granulocytes (Bld) [#/Vol] 0.02 10*3/uL [facility] Immature granulocytes/100 WBC (Bld) 0.30 % [facility] Comment on above: The IG parameter is the percentage of metamyelocytes, myelocytes and promyelocytes. An immature granulocyte count (IG) of 1% or more suggests the possibility of infection, an IG count of 3% is very likely related to an infection. Interpretation and review of laboratory results Abnormal [facility] Lymphocytes (Bld) [#/Vol] 2.82 10*3/uL [facility] Lymphocytes/100 WBC (Bld) 39.6 % [facility] MCH (RBC) [Entitic mass] 31.1 pg 26 - 34 pg [facility] MCHC (RBC) [Mass/Vol] 32.8 g/dL 31 - 3 7 g/dL [facility] MCV (RBC) [Entitic vol] 95.0 fL 80 - 100 fL [facility] Monocytes (Bld) [#/Vol] 0.45 10*3/uL [facility] Monocytes/100 WBC (Bld) 6.3 % [facility] Neutrophils (Bld) [#/Vol] 3.59 10*3/uL [facility] Neutrophils/100 WBC (Bld) 50.5 % [facility] Nucleated RBC (Bld) [#/Vol] 0.00 10*3/uL [facility] Nucleated RBC/100 WBC (Bld) [Ratio] 0.0 % [facility] Platelet mean volume (Bld) [Entitic vol] 9.7 fL 9.4 - 12.4 fL [facility] Platelets (Bld) [#/Vol] 234 10*3/uL [facility] RBC (Bld) [#/Vol] 3.79 10*6/uL Low [facility] ealth WBC (Bld) [#/Vol] 7.12 10*3/uL [facility] ealt Hemoglobin A1con 06-04-2020 Average glucose Estimated from glycated hemoglobin mass conc (Bld) 246 mg/dL High 68 - 114 mg/dL [facility] HbA1c (Bld) [Mass fraction] 10.2 % High 4 - 5.6 % [facility] Interpretation and review of laboratory results Abnormal [facility] Normal: 4.0% - 5.6% Increased risk for diabetes: 5.7% - 6.4% Diabetes: >= 6.5% Pediatrics: No established reference range Estimated average glucose: 68-114 mg/dL [facility] Magnesiumon 06-04-2020 Interpretation and review of laboratory results Normal [facility] Magnesium [Mass/Vol] 1.6 mg/dL 1.6 - 2 .4 mg/dL [facility] POC Glucoseon 06-04-2020 Glucose [Mass/Vol] 79 mg/dL 65 - 99 mg/dL [facility] Interpretation and review of laboratory results Normal [facility] Glucose [Mass/Vol] 108 mg/dL High 65 - 99 mg/dL [facility] Interpretation and review of laboratory results Abnormal [facility] Glucose [Mass/Vol] 134 mg/dL High 65 - 99 mg/dL [facility] Interpretation and review of laboratory results Abnormal [facility] Glucose [Mass/Vol] 118 mg/dL High 65 - 99 mg/dL [facility] Interpretation and review of laboratory results Abnormal [facility] Reflex Lactic Acid, Plasmaon 06-04-2020 Interpretation and review of laboratory results Abnormal [facility] Lactate [Moles/Vol] 2.1 mmol/L High 0.6 - 2 mmol/L [facility] CBC WITH AUTO DIFFERENTIALon 06-03-2020 Basophils (Bld) [#/Vol] 0.06 10*3/uL [facility] Basophils/100 WBC (Bld) 0.8 % [facility] Eosinophils (Bld) [#/Vol] 0.11 10*3/uL [facility] Eosinophils/100 WBC (Bld) 1.4 % [facility] Erythrocyte distribution width (RBC) [Entitic vol] 12.3 % 11.6 - 14.8 % [facility] Hematocrit (Bld) [Volume fraction] 38.8 % 36 - 46 % [facility] Hemoglobin (Bld) [Mass/Vol] 13.1 g/dL 12 - 16 g/dL [facility] Immature granulocytes (Bld) [#/Vol] 0.02 10*3/uL [facility] Immature granulocytes/100 WBC (Bld) 0.30 % [facility] Comment on above: The IG parameter is the percentage of metamyelocytes, myelocytes and promyelocytes. An immature granulocyte count (IG) of 1% or more suggests the possibility of infection, an IG count of 3% is very likely related to an infection. Lymphocytes (Bld) [#/Vol] 1.86 10*3/uL [facility] Lymphocytes/100 WBC (Bld) 24.1 % [facility] MCH (RBC) [Entitic mass] 30.8 pg 26 - 34 pg [facility] MCHC (RBC) [Mass/Vol] 33.8 g/dL 31 - 3 7 g/dL [facility] MCV (RBC) [Entitic vol] 91.1 fL 80 - 100 fL [facility] Monocytes (Bld) [#/Vol] 0.37 10*3/uL [facility] Monocytes/100 WBC (Bld) 4.8 % [facility] Neutrophils (Bld) [#/Vol] 5.29 10*3/uL [facility] Neutrophils/100 WBC (Bld) 68.6 % [facility] Nucleated RBC (Bld) [#/Vol] 0.00 10*3/uL [facility] Nucleated RBC/100 WBC (Bld) [Ratio] 0.0 % [facility] Platelet mean volume (Bld) [Entitic vol] 9.7 fL 9.4 - 12.4 fL [facility] Platelets (Bld) [#/Vol] 253 10*3/uL [facility] RBC (Bld) [#/Vol] 4.26 10*6/uL [facility] eah WBC (Bld) [#/Vol] 7.71 10*3/uL [facility] COVID-19, Molecularon 2020 Interpretation and review of laboratory results Normal [facility] SARS-CoV-2 Not Detected Not Detected [facility] Comment on above: This test was [...] at the following links: For Healthcare Providers: https://www.fda.gov/media/177128/download For Patients: https://www.fda.gov/media/649268/download CRITICAL CAREon 06-03-2020 Joel Pickett 06/03/2020 4:35 [...] radiographic studies and re-evaluation of patient's condition. [facility] CT Foot Left Without Contras ton [...] ankle as described above. Workstation ID: [id number] [facility] Interface, Rad In Fu ji Speechq [...] ankle as described above. Workstation ID: [id number] [facility] EXAMINATION: CT scan left foot and [...] No focal fluid density collection is identified. [facility] Chem 7on 06-03-2020 Anion gap [Moles/Vol] 11 mmol/L 10 - 2 0 mmol/L [facility] Chloride [Moles/Vol] 109 mmol/L High 98 - 10 8 mmol/L [facility] Creatinine [Mass/Vol] 1.28 mg/dL High 0.40 - 1.10 [facility] GFR/1.73 sq M predicted among non-blacks MDRD (S/P/Bld) [Vol rate/Area] The eGFR should be used for monitoring renal function only and not for medication dosing. [facility] GFR/1.73 sq M.predicted CKD-EPI (S/P/Bld) [Vol rate/Area] 51 Low >=60 mL/min/1.73 m2 [facility] Glucose [Mass/Vol] 288 mg/dL High 65 - 99 mg/dL [facility] HCO3 [Moles/Vol] 27 mmol/L 21 - 32 mmol/L [facility] Interpretation and review of laboratory results Abnormal [facility] Potassium [Moles/Vol] 3.9 mmol/L 3.5 - 5.1 mmol/L [facility] Sodium [Moles/Vol] 143 mmol/L 135 - 145 mmol/L [facility] Urea nitrogen [Mass/Vol] 16 mg/dL 8 - 25 mg/dL [facility] Urea nitrogen/Creatinine [Mass ratio] 12.5 mg/mg [facility] Lactic Acid, Plasmaon 2020 Interpretation and review of laboratory results Abnormal [facility] Lactate [Moles/Vol] 2.6 mmol/L High 0.6 - 2 mmol/L [facility] Otheron 06-03-2020 Extra Tube Hold for add-ons. [facility] Comment on above: Auto resulted. POC Glucoseon 06-03-2020 Glucose [Mass/Vol] 288 mg/dL High 65 - 99 mg/dL [facility] Interpretation and review of laboratory results Abnormal [facility] CBC W/DIFFon 08-10-2019 ABS BASOPHILS 0.1 10*3/uL Normal 0.0-0.2 [facility] Comment on above: Performed By: #### 5 0103 #### [facility] [address] [place] [address], [facility] ABS IMM GRANS 0.0 10*3/uL Normal 0.0-0.2 [facility] Comment on above: Performed By: #### 5 0103 #### [facility] [address] [place] [address], [facility] ABS NEUTROPHILS 7.5 10*3/uL Normal 1.6-7.6 [facility] Comment on above: Performed By: #### 5 0103 #### [facility] [address] [place] [address], [facility] Basophils/100 WBC (Bld) 0.7 % Normal 0.0-1.0 [facility] Comment on above: Performed By: #### 0103 #### [facility] [address] [address], [facility] Eosinophils (Bld) [#/Vol] 0.2 10*3/uL Normal 0.0-0.5 [facility] Comment on above: Performed By: #### 5 0103 #### [facility] [address] [place] [address], [facility] Eosinophils/100 WBC (Bld) 1.5 % Normal 0.0-6.0 [facility] Comment on above: Performed By: #### 5 0103 #### [facility] [address] [facility] [address], [facility] Erythrocyte distribution width (RBC) [Ratio] 12.0 % Normal 11.5-15.0 [facility] Comment on above: Performed By: #### 5 3 #### [facility] [address] [address], [facility] Hematocrit (Bld) [Volume fraction] 40.4 % Normal 36.0-45.0 [facility] Comment on above: Performed By: #### 5 3 #### [facility] [address] [place] [address], [facility] Hemoglobin (Bld) [Mass/Vol] 13.5 g/dL Normal 12.0-15.0 [facility] Comment on above: Performed By: #### 5 3 #### [facility] [address] IMMATURE GRANS 0.4 % Normal 0.0-1.0 [facility] Comment on above: Performed By: #### 5 102 #### [facility] [address] Lymphocytes (Bld) [#/Vol] 2.3 10*3/uL Normal 1.2-4.0 [facility] Comment on above: Performed By: #### 3 #### [facility] [address] Lymphocytes/100 WBC (Bld) 21.5 % Normal 20.0-45.0 [facility] Comment on above: Performed By: #### 102 #### [facility] [address] MCH (RBC) [Entitic mass] 29.9 pg Normal 27.0-33.0 [facility] Comment on above: Performed By: #### 3 #### [facility] [address] MCHC (RBC) [Mass/Vol] 33.4 g/dL Normal 32.0-35.0 [facility] Comment on above: Performed By: #### 3 #### [facility] [address] MCV (RBC) [Entitic vol] 89.6 fL Normal 82.0-98.0 [facility] Comment on above: Performed By: #### 102 #### [facility] [address] [place] [address], [facility] Monocytes (Bld) [#/Vol] 0.6 10*3/uL Normal 0.1-1.0 [facility] Comment on above: Performed By: #### 3 #### [facility] [address] [place] [id number], [facility] MONOS 5.6 % Normal 5.0-12.0 [facility] Comment on above: Performed By: #### 102 #### [facility] [address] [place] [address], [facility] Neutrophils/100 WBC (Bld) 70.3 % Normal 40.0-72.0 [facility] Comment on above: Performed By: #### 102 #### [facility] [address] [place] [address], [facility] Nucleated RBC/100 WBC (Bld) [Ratio] 0 % Normal 0-0 [facility] Comment on above: Performed By: #### 102 #### [facility] [address] [facility] [address], [facility] PLAT CNT 422 10*3/uL High 150-400 [facility] Comment on above: Performed By: #### 102 #### [facility] [address] [facility] [place] [address], [facility] RBC (Bld) [#/Vol] 4.51 10*6/uL Normal 3.80-5.00 [facility] Comment on above: Performed By: #### 102 #### [facility] [address] [facility] [place] [id number], [facility] WBC (Bld) [#/Vol] 10.63 10*3/uL High 4.00-10.60 [facility] Comment on above: Performed By: #### 3 #### [facility] [address] [facility] [place] [address], [facility] COMP METABOLIC PANELon 08-09 Albumin [Mass/Vol] 4.2 g/dL Normal 3.5-5.7 [facility] Comment on above: Performed By: #### 0 0121 #### [facility] [address] [facility] [place] [address], [place] ALKALINE PHOSPH 90 IU/L Normal 34-104 [facility] Comment on above: Performed By: #### 0 0121 #### [facility] [address] [place] [address], [place] ALT [Catalytic activity/Vol] 6 U/L Low 7-52 [facility] Comment on above: Performed By: #### 0 0121 #### [facility] [address] [place] [address], [place] AST [Catalytic activity/Vol] 9 U/L Low 13-39 [facility] Comment on above: Performed By: #### 0 0121 #### [facility] [address] [place] [address], [place] Bilirubin [Mass/Vol] 0.3 mg/dL Normal 0.3-1.0 [facility] Comment on above: Performed By: #### 0 0121 #### [facility] [address] [place] [address], [place] Calcium [Mass/Vol] 9.4 mg/dL Normal 8.6-10.3 [facility] Comment on above: Performed By: #### 0 0121 #### [facility] [address] [place] [address], [place] Chloride [Moles/Vol] 104 mmol/L Normal 98-107 [facility] Comment on above: Performed By: #### 0 0121 #### [facility] [address] [place] [address], [place] CO2 [Moles/Vol] 25 mmol/L Normal 21-31 [facility] Comment on above: Performed By: #### 0 0121 #### [facility] [address] [place] [address], [place] Creatinine [Mass/Vol] 0.89 mg/dL Normal 0.60-1.20 [facility] Comment on above: Performed By: #### 0 0121 #### [facility] [address] [place] [address], [place] GFR/1.73 sq M predicted among blacks MDRD (S/P/Bld) [Vol rate/Area] mL/min/{1.73_m2} Normal >60 [facility] Comment on above: Performed By: #### 0 0121 #### [facility] [address] [place] [address], [place] GFR/1.73 sq M predicted among non-blacks MDRD (S/P/Bld) [Vol rate/Area] mL/min/{1.73_m2} Normal >60 [facility] Comment on above: Performed By: #### 0 0121 #### [facility] [address] [place] [address], [place] Glucose [Mass/Vol] 155 mg/dL High 70-100 [facility] Comment on above: Performed By: #### 0 0121 #### [facility] [address] [place] [address], [place] Potassium [Moles/Vol] 4.3 mmol/L Normal 3.5-5.1 [facility] Comment on above: Performed By: #### 0 0121 #### [facility] [address] [place] [address], [place] Protein [Mass/Vol] 7.2 g/dL Normal 6.0-8.3 [facility] Comment on above: Performed By: #### 0 0121 #### [facility] [address] [place] [address], [place] Sodium [Moles/Vol] 138 mmol/L Normal 136-145 [facility] Comment on above: Performed By: #### 0 0121 #### [facility] [address] [place] [address], [place] Urea nitrogen [Mass/Vol] 24 mg/dL Normal 7-25 [facility] Comment on above: Performed By: #### 0 0121 #### [address] LUMBAR SPINE WO CONTRASTo n 08-10-2019 CT LUMBAR SPINE WO [facility] Department of Radiology [address] [place] [id number] Patient Name: ADDIE JEAN BAPTISTE : 1975 Sex: F Age: Race: White Pt. Location: [facility] Patient Status: E Ordered Date: 08/10/2019 7:30:00 PM Completed Date: 08/10/2019 08:04 PM Requesting Provider: AMBROCIO CHAVEZ Attending Provider: ABMROCIO CHAVEZ Report Copy To: Signs & Symptoms: Back [...] achievable Electronically signed: Carie Sanchez. Transcribed by: [id number], User Resident: Electronically Signed by: CARIE SANCHEZ @ 08/10/2019 08:35 PM Normal [facility] Comment on above: Order Comment: Spina l Stenosis KEPPRA ILon 08-10-2019 IL Normal [facility] Comment on above: Result Comment: Test Performed by [facility] [address] [place] [address] - Released 08/10/2019 22:25 KEPPRA 10 ug/mL Normal [facility] Comment on above: Result Comment: A [...] and toxicity is not known. LITHIUMon 08-10-2019 Ina [Moles/Vol] Normal [facility] Comment on above: Result Comment: Test Performed by [facility] [address] [place] [address] - Released 08/10/2019 22:35 Result changed by IF on 08/10/2019 22:35. The previous value was Test Performed by [facility] [address] [place] [address] [phone] Ina [Moles/Vol] mmol/L Low 0.6-1.2 [facility] POC URINE PREGNANCYon 2019 Beta HCG ( test) Ql (U) Negative Normal NEGATIVE [facility] Comment on above: Result Comment: Perf ormed in Emergency Department. Performed By: #### 8 4140 #### [facility] [address] TOX PANEL URINEon 08-10-2019 50 THC Negative Normal NEGATIVE [facility] Comment on above: Performed By: #### 3 1079 #### [facility] [address] [place] [address], [facility] BARBITURATES Negative Normal NEGATIVE [facility] Comment on above: Performed By: #### 3 1079 #### [facility] [address] [place] [address], [facility] Benzodiazepines Ql (U) Negative Normal NEGATIVE [facility] Comment on above: Performed By: #### 3 1079 #### [facility] [address] [place] [address], [facility] Cocaine Ql (U) Negative Normal NEGATIVE [facility] Comment on above: Performed By: #### 3 1079 #### [facility] [address] [place] [address], [facility] Methadone Ql (U) Negative Normal NEGATIVE [facility] Comment on above: Performed By: #### 3 1079 #### [facility] [address] [place] [address], [facility] MONO AMPHET Negative Normal NEGATIVE [facility] Comment on above: Performed By: #### 3 1079 #### [facility] [address] [place] [address], [facility] Opiates Ql (U) Negative Normal NEGATIVE [facility] Comment on above: Performed By: #### 3 1079 #### [facility] [address] [place] [address], [facility] Phencyclidine Ql (U) Negative Normal NEGATIVE [facility] Comment on above: Performed By: #### 3 1079 #### [facility] [address] [place] [address], [facility] PROPOXYPHENE Negative Normal NEGATIVE [facility] Comment on above: Performed By: #### 3 1079 #### [facility] [address] [place] [address], [facility] TRICYCLICS Positive Abnormal NEGATIVE [facility] Comment on above: Performed By: #### 3 1079 #### [facility] [address] [place] [address], [facility] VALPROIC ACIDon 08-10-2019 VALPROIC ACID (DEPAKOTE) 57 mcg/mL Low 60-100 [facility] Comment on above: Performed By: #### 4 6956 #### [facility] [address] CHEST 2 VIEW PA AND LATon CHEST 2 VIEW PA AND LAT Patient Name: ORGAN, ADDIE STUDY: TH CHEST 2 VIEW PA AND LAT; 04/07/2019 7:13 am INDICATION: Pneumothorax. COMPARISON: 04/06/2019 ACCESSION NUMBER(S): [id number] ORDERING CLINICIAN: RADHA STEELE FINDINGS: There is [...] Electronically signed by: MK HERNANDEZ MD Normal [facility] Discharge [id number] Discharge Profile2 Discharge Orders: Problem List: [...] dual chamber ICD upgrade currently with a [employer] [id number] Evera MRI XT DR device. See full [...] 3 month follow up with EP in [facility] office, CXR, and device check. Provider FINAL REVIEW of Orders: Final Review: Final Review of Medication Reconciliation and Orders Completedby FIELD SERVICE COORDINATOR Reviewing ProviderMARY Baez at 07-Apr-2019 13:43:42 Appointments: Follow-Up Appointment 01: Physician/Dept/Kyle Sevilla office Reason for Referralwound check Scheduled Date/[id number]-5255 02:30 Phone [phone] Follow-Up App[facility]ment [facility] Reason for Referralchest X-Ray Scheduled Date/[id number]-Nhk-9322 02:15 Phone [phone] Follow-Up Appointment 03[facility] Reason for Referraldevice check Scheduled Date/[id number]-[id number]-9691 03:00 Phone [phone] Follow-Up Appointment 04: Physician/Dept/ServiceDr. Noble Scheduled Date/[id number]-Cia-1276 03:40 Phone [phone] Electronic Signatures: aRdha Steele (FIELD SERVICE COORDINATOR-USABILITY SPECIALIST) (Signed 07-Apr-2019 13:51) Authored: Discharge Orders, Hospital Course (Home Care/Gold Form), Provider FINAL REVIEW of Orders, Gold Form - Brick Baker Summary Ida Brand (CN) (Signed 07-Apr-2019 13:50) Authored: Appointments Last Updated: 07-Apr-2019 13:51 by Radha Steele (FIELD SERVICE COORDINATOR-USABILITY SPECIALIST) Normal [facility] GLUCOSE-POCTon 04-07-2019 Glucose [Mass/Vol] 150 mg/dL High 74 - 99 [facility] Comment on above: Performed By: #### C BC #### [address] [address] Glucose [Mass/Vol] 205 mg/dL High 74 - 99 [facility] Comment on above: Performed By: #### C BC #### [address] [address] Glucose [Mass/Vol] 365 mg/dL High 74 - 99 [facility] Comment on above: Performed By: #### C BC #### [address] [address] BASIC METABOLIC PANELon 03-25 Anion gap [Moles/Vol] 17 mmol/L Normal 10 - 20 [facility] Comment on above: Performed By: #### B MP #### [address] [address] Calcium [Mass/Vol] 8.8 mg/dL Normal 8.6 - 10.3 [facility] Comment on above: Performed By: #### B MP #### [address] [address] Chloride [Moles/Vol] 97 mmol/L Low 98 - 107 [facility] Comment on above: Performed By: #### B MP #### [address] [address] Creatinine [Mass/Vol] 0.80 mg/dL Normal 0.50 - 1.05 [facility] Comment on above: Performed By: #### B MP #### [address] [address] GFR- AM. >60 Normal >60 [facility] Comment on above: Result Comment: CALC ULATIONS OF ESTIMATED GFR ARE PERFORMED USING THE MDRD STUDY EQUATION FOR THE IDMS-TRACEABLE CREATININE METHODS. CLIN CHEM 2007;53:766-72 Performed By: #### B MP #### [address] [address] GFR-NON AM. >60 Normal >60 [facility] Comment on above: Performed By: #### B MP #### [address] [address] Glucose [Mass/Vol] 429 mg/dL High 74 - 99 [facility] Comment on above: Performed By: #### B MP #### [address] [address] HCO3 (Bld) [Moles/Vol] 21 mmol/L Normal 21 - 32 [facility] Comment on above: Performed By: #### B MP #### [address] [address] Potassium [Moles/Vol] 3.8 mmol/L Normal 3.5 - 5.3 [facility] Comment on above: Performed By: #### B MP #### [address] [address] Sodium [Moles/Vol] 131 mmol/L Low 136 - 145 [facility] Comment on above: Performed By: #### B MP #### [address] [address] Urea nitrogen [Mass/Vol] 16 mg/dL Normal 6 - 23 [facility] Comment on above: Performed By: #### B MP #### [address] [address] CBCon 04-06-2019 Erythrocyte distribution width (RBC) [Ratio] 11.7 % Normal 11.5 - 14.5 [facility] Comment on above: Performed By: #### C BC #### [address] [address] Hematocrit (Bld) [Volume fraction] 40.2 % Normal 36.0 - 46.0 [facility] Comment on above: Performed By: #### C BC #### [address] [address] Hemoglobin (Bld) [Mass/Vol] 13.9 g/dL Normal 12.0 - 16.0 [facility] Comment on above: Performed By: #### C BC #### [address] [address] MCHC (RBC) [Mass/Vol] 34.6 g/dL Normal 32.0 - 36.0 [facility] Comment on above: Performed By: #### C BC #### [address] [address] MCV (RBC) [Entitic vol] 88 fL Normal 80 - 100 [facility] Comment on above: Performed By: #### C BC #### [address] [address] Platelets (Bld) [#/Vol] 306 10*3/uL Normal 150 - 450 [facility] Comment on above: Performed By: #### C BC #### [address] [address] RBC (Bld) [#/Vol] 4.57 x10E12/L Normal 4.00 - 5.20 [facility] Comment on above: Performed By: #### C BC #### [address] [address] WBC (Bld) [#/Vol] 9.4 10*3/uL Normal 4.4 - 11.3 [facility] Comment on above: Performed By: #### C BC #### [address] [address] CHEST 2 VIEW PA AND LATon CHEST 2 VIEW PA AND LAT Patient Name: ORGAN, ADDIE STUDY: TH CHEST 2 VIEW PA AND LAT; 04/06/2019 8:05 am INDICATION: SVT, preop implant. COMPARISON: None. ACCESSION NUMBER(S): [id number] ORDERING CLINICIAN: ROSALIA NOBLE FINDINGS: CARDIOMEDIASTINAL SILHOUETTE: [...] Electronically signed by: SHAMEKA PEREZ MD Normal [facility] COAGULATION SCREENon 019 aPTT Coag (Bld) [Time] 29 s Normal 28 - 38 [facility] Comment on above: Result Comment: THE APTT IS NO LONGER USED FOR MONITORING UNFRACTIONATED HEPARIN THERAPY. FOR MONITORING HEPARIN THERAPY, USE THE HEPARIN ASSAY. Performed By: #### C OAGS #### [address] [address] INR Coag (PPP) [Relative time] 1.0 {INR} Normal 0.9 - 1.1 [facility] Comment on above: Performed By: #### C OAGS #### [address] [address] PT Coag (PPP) [Time] 10.8 s Normal 9.7 - 12.7 [facility] Comment on above: Performed By: #### C OAGS #### [address] [address] Daily Progress Note-Electrop hysiologyon 04-06-2019 Daily Progress [...] of infection. The patient should call the firearms specialist immediately if symptoms recur, or for any problems. The patient and mother(message left on phone with HIPPA consent) have been instructed accordingly. 2.Follow up with [facility] office in seven days for post-operative wound assessment. 3.Follow up with Device Clinic in twelve weeks for routine device analysis and reprogramming if necessary. Remote monitoring will be instituted and released from [facility] to [facility] as per patient request. Procedures: Complete electrophysiologic [...] pouch was placed. 11.A dual-chamber cardioverter defibrillator (Med [id number] #[id number]) was attached to the leads and implanted. [...] 6 Fr high RA, CS Bpst Sci [place] new access Right femoral vein 6 Fr His-bundle (right side) Eddy Sci Vikingnew access Right femoral vein 6 Fr RV apex, RVOT [place] [facility] [place] new access Complications: The patient tolerated the procedure without any complications or incident. EBL 0 cc Specimens obtained: No Prepared and signed by. Electronic Signatures: Rosalia Noble) (Signed 06-Apr-2019 16:32) Authored: Service, Objective Data, Assessment and Plan, Signature/Cosignature/Att estation Last Updated: 06-Apr-2019 16:32 by Rosalia Noble) Normal [facility] GLUCOSE-POCTon 04-06-2019 Glucose [Mass/Vol] 409 mg/dL High 74 - 99 [facility] Comment on above: Performed By: #### C BC #### [address] [address] Glucose [Mass/Vol] 136 mg/dL High 74 - 99 [facility] Comment on above: Performed By: #### C BC #### [address] [address] Glucose [Mass/Vol] 167 mg/dL High 74 - 99 [facility] Comment on above: Performed By: #### C BC #### [address] [address] Glucose [Mass/Vol] 218 mg/dL High 74 - 99 [facility] Comment on above: Performed By: #### C BC #### [address] [address] Glucose [Mass/Vol] 338 mg/dL High 74 - 99 [facility] Comment on above: Performed By: #### G EMELY #### [facility] [address] [place] [address] Glucose [Mass/Vol] 415 mg/dL High 74 - 99 [facility] Comment on above: Performed By: #### G EMELY #### [facility] [address] [place] [address] HCG,SERUM QUALITATIVEon 03-25 HCG,SERUM QUALITATIVE Negative Normal Negative [facility] Comment on above: Performed By: #### H CGS #### [address] [address] Patient Profile - Preop v2on 04-06-2019 Patient Profile - Preop v2 Profile: Initial Info: How to be AddressedCathy Spoken Language PreferredEnglish Source of Informationpatient; family Are you currently using the Personal Electronic Health Record or FrontbackPogojono Are you interested in learning more about FrontbackPogojo for the management of your healthnot at this time Stated Reason for AdmissionEPS Primary Contact Name and NumberSharon Organ [phone] Limitations on Visitors/Phone Callsnone Patient Belongingsremains with patient Patient Belongings Remaining with Patientcell phone/electronics; clothing Medications Brought to Hospitalyes General Health: Weight in kg91.1 kilogram(s) Weight in dqe778.8 pound(s) Weight Methodstated Scale Typestanding Height in cm157.4 centimeter(s) Height in feet5 feet Height in inches2 inch(es) Height Methodstated BMI (kg/m2)36.771 square meter Patient or Family Member Reaction to Anesthesiano previous reaction Equipment Currently Used at Homecane, quad/straight Blood Avoidance/Restrictionsnon e Previous Transfusion Reactionno Health Mgmt: Symptoms/Conditions Managed at [facility] Are You Currently Breastfeedingno Barriers to Managing Healthnone Relationship/Environ: Resource/Environmental Concernsnone Services Anticipated at Transitionnone Lives Withspouse Living Arrangementshouse [facility] Sub[facility]: Current or Former Substance Use never: [...] Learning Preferencesindividual instruction Cultural Considerationsnone Developmental Considerationsnone Christianity Considerationsnone Other learner availableno [place] RiskPatient location auto qualifies him/her for HIGH RISK. Are there any cultural, spiritual, congregation practices/values/needs that are important for us to knowno Do you want a visit/item from [facility] Would you like your Presto Log Operator/Housefellow notifiedno Pain Scalenumerical 0-10 Pain Scale Educationteaching [...] Information Last Updated: 06-Apr-2019 07:39 by Kristi Soriano (JAEL) Normal [facility] Preop Checkliston 04-06-2019 Preop Checklist Preop Checklist: Preop Checklist: Arrival [id number] Arrival Time06:38 Temperature C36.1 degrees C Temperature F96.9 degrees F Heart Rate60 beats per minute Respiratory Rate18 breath per minute Blood Pressure Tbyjemuy16 mm/Hg Blood Pressure Fnfptzped55 mm/Hg NPO [id number] 23:00 ID Band Onyes Allergy Bandyes H&P Completeyes EKG Performedyes Chest X-Ray Performedyes HCG Urine TestN/A Chlorhexadine Bath Givennot applicable Nasal Antiseptic Appliednot applicable Hair Washednot applicable Soap and water bath with hair shampoo the night before surgerynot applicable Hat placed on prior to transportnot applicable SCD's Appliednot applicable SHANTEL Hose Appliednot ordered Denturesat home Prostheticsnot applicable Hearing Aidsnot applicable Valuables Securednot applicable Glasses / Contactsnot applicable Electronic Signatures: Kristi Soriano (JAEL) (Signed 06-Apr-2019 07:42) Authored: Preop Checklist Last Updated: 06-Apr-2019 07:42 by Kristi Soriano (JAEL) Normal [facility] UA MICROSCOPICon 04-06-2019 BACTERIA 1+ /HPF Abnormal [facility] Comment on above: Performed By: #### C BC #### [address] [address] MUCUS 1+ /LPF Normal [facility] Comment on above: Performed By: #### C BC #### [address] [address] RBC 3 /HPF Normal 0-5 [facility] Comment on above: Performed By: #### C BC #### [address] [address] SQUAMOUS EPITH. CELLS 3 /HPF Normal [facility] Comment on above: Performed By: #### C BC #### [address] [address] WBC 8 /HPF Abnormal 0-5 [facility] Comment on above: Performed By: #### C BC #### [address] [address] URINALYSISon 04-06-2019 Appearance (U) CLEAR Normal CLEAR [facility] Comment on above: Performed By: #### U A #### [address] [address] Bilirubin (U) [Mass/Vol] Negative Normal NEGATIVE [facility] Comment on above: Performed By: #### U A #### [address] [address] BLOOD Negative Normal NEGATIVE [facility] Comment on above: Performed By: #### U A #### [address] [address] Color (U) YELLOW Normal STRAW,YELLO W [facility] Comment on above: Performed By: #### U A #### [address] [address] Glucose [Mass/Vol] >=500 (3+) Abnormal NEGATIVE [facility] Comment on above: Performed By: #### U A #### [address] [address] Ketones Ql (U) Negative Normal NEGATIVE [facility] Comment on above: Performed By: #### U A #### [address] [address] Leukocyte esterase Test strip Ql (U) TRACE Abnormal NEGATIVE [facility] Comment on above: Performed By: #### U A #### [address] [address] Nitrite Ql (U) Positive Abnormal NEGATIVE [facility] Comment on above: Performed By: #### U A #### [address] [address] pH (Bld) 5.0 Normal 5.0 - 8.0 [facility] Comment on above: Performed By: #### U A #### [address] [address] Protein (U) [Mass/Vol] Negative Normal NEGATIVE [facility] Comment on above: Performed By: #### U A #### [address] [address] Specific gravity (U) [Rel density] 1.031 Normal 1.005 - 1.035 [facility] Comment on above: Performed By: #### U A #### [facility] [address] [place] [address] Urobilinogen Qn (U) <2.0 Normal 0.0 - 1.9 [facility] Comment on above: Performed By: #### U A #### [facility] [address] [place] [address] Laboratory Studieson 019 Calcium [Mass/Vol] 9.8 mg/dL 8.2-10.2 [facility] Chloride [Moles/Vol] 98 mmol/L 95-114 [facility] CO2 [Moles/Vol] 19.7 mmol/L Low 22.0-30.0 [facility] Creatinine [Mass/Vol] 0.88 mg/dL 0.44-1.03 [facility] GFR/1.73 sq M predicted among non-blacks MDRD (S/P/Bld) [Vol rate/Area] mL/min/{1.73_m2} [facility] GFR/1.73 sq M.predicted MDRD (S/P/Bld) [Vol rate/Area] mL/min/{1.73_m2} [facility] Comment on above: GFR estimated refere nce range: According to KDOQI guidelines, <60 ml/min/1.73m2 is sufficient to diagnose a patient with chronic kidney disease. Glucose [Mass/Vol] 436 mg/dL High 70-100 [facility] Comment on above: ADA recommended refe rence range Random Glucose Reference Range is dependent on time and content of last meal. Glucose of more than 200 mg/dL in a nonstressed, ambulatory subject supports the diagnosis of Diabetes Mellitus. Pharmacy Creatinine Clearance (Chem N/A [facility] Potassium [Moles/Vol] 4.3 mmol/L 3.5-5.1 [facility] Sodium [Moles/Vol] 134 mmol/L Low 136-146 [facility] Urea nitrogen [Mass/Vol] 13 mg/dL 9- [facility] Laboratory Studieson 019 Glucose [Mass/Vol] 148 mg/dL [facility] Comment on above: Random Glucose Refer ence Range is dependent on time and content of last meal. Glucose of more than 200 mg/dL in a nonstressed, ambulatory subject supports the diagnosis of Diabetes Mellitus. Basophils (Bld) [#/Vol] 0.1 10*3/uL 0.0-0.2 [facility] Basophils/100 WBC (Bld) 0.4 % [facility] Eosinophils (Bld) [#/Vol] 0.2 10*3/uL 0.0-0.45 [facility] Eosinophils/100 WBC (Bld) 1.6 % [facility] Erythrocyte distribution width (RBC) [Ratio] 12.7 % 11.9-15.3 [facility] Hematocrit (Bld) [Volume fraction] 33.9 % Low 34.0-46.4 [facility] Hemoglobin (Bld) [Mass/Vol] 11.5 g/dL Low 11.8-15.4 [facility] Lymphocytes (Bld) [#/Vol] 3.2 10*3/uL 1.00-4.8 [facility] Lymphocytes/100 WBC (Bld) 25.2 % [facility] MCH (RBC) [Entitic mass] 31.2 pg 24.7-34.3 [facility] MCHC (RBC) [Mass/Vol] 34.0 g/dL 32.0-35.0 [facility] MCV (RBC) [Entitic vol] 92.0 fL 80-100 [facility] Monocytes (Bld) [#/Vol] 0.6 10*3/uL 0.0-0.8 [facility] Monocytes/100 WBC (Bld) 4.3 % [facility] Neutrophils (Bld) [#/Vol] 8.7 10*3/uL High 1.8-7.7 [facility] Neutrophils/100 WBC (Bld) 68.5 % [facility] Nucleated RBC/100 WBC (Bld) [Ratio] 0.0 % 0-0.5 [facility] Platelet mean volume (Bld) [Entitic vol] 7.3 fL 6.3-10.7 [facility] Platelets (Bld) [#/Vol] 297 10*3/uL 150-450 [facility] RBC (Bld) [#/Vol] 3.68 10*6/uL 3.60-5.00 [facility] WBC (Bld) [#/Vol] 12.7 10*3/uL High 4.5-11.0 [facility] Glucose [Mass/Vol] Glu2: cleaned meter [facility] Laboratory Studieson 019 Glucose [Mass/Vol] Will notify dr/rn [facility] Albumin [Mass/Vol] 3.0 g/dL Low 3.2-5.5 [facility] Albumin/Globulin [Mass ratio] 1.1 {ratio} [facility] ALP [Catalytic activity/Vol] 68 U/L 32-92 [facility] ALT No additional P-5'-P [Catalytic activity/Vol] 12 U/L 10-60 [facility] AST [Catalytic activity/Vol] 17 U/L 10-42 [facility] Bilirubin [Mass/Vol] 0.6 mg/dL 0.3-1.2 [facility] Cholesterol [Mass/Vol] 123 mg/dL Low 140-200 [facility] Comment on above: Chol less than 200 m g/dl low risk Chol 201-239 mg/dl borderline risk Chol 240 mg/dl and greater high risk Cholesterol in HDL [Mass/Vol] 51 mg/dL 35-85 [facility] Comment on above: HDL CHOL ATP-III CLA SSIFICATION Cardiovascular Risk HDL > or equal to 60 mg/dL LOW HDL < 40 mg/dL HIGH Cholesterol in LDL [Mass/Vol] 57 mg/dL 0-100 [facility] Comment on above: LDL ATP III CLASSIFI CATION LDL less than 100 mg/dL Optimal LDL 100-129 mg/dL Near or above optimal LDL 130-159 mg/dL Borderline high LDL 160-189 mg/dL High LDL greater than 189 mg/dL Very high Cholesterol in VLDL [Mass/Vol] 15 mg/dL [facility] Cholesterol.total/Cho lesterol in HDL [Mass ratio] 2.4 {ratio} [facility] Globulin (S) [Mass/Vol] 2.7 g/dL [facility] Protein [Mass/Vol] 5.7 g/dL Low 6.1-7.9 [facility] Triglyceride [Mass/Vol] 75 mg/dL 35-149 [facility] Comment on above: TRIG ATP III CLASSIF ICATION TRIG less than 150 mg/dL Normal TRIG 150-199 mg/dL Borderline high TRIG 200-500 mg/dL High TRIG greater than 500 mg/dL Very high Standard traceable to the Center for Disease Conrtrol and Prevention (CDC) test method. Laboratory Studieson 019 Lactate [Moles/Vol] 1.4 mmol/L [facility] CK [Catalytic activity/Vol] 35 U/L 22-269 [facility] INR Coag (PPP) [Relative time] 1.0 {INR} [facility] Comment on above: INR Therapeutic Rang [...] - 4.5 Prolactin [Mass/Vol] 6.20 ng/mL 3.34-26.72 [facility] PT Coag (PPP) [Time] 11.0 s 9.0-12.9 [facility] Troponin I.cardiac [Mass/Vol] ng/mL 0-0.02 [facility] Comment on above: KEISHA MS Cut off value > or equal to 0.03 ng/mL in conjunction with clinical conditions of myocardial infarction. ([email or web address].org/guidelines) Amphetamines Ql (U) Negative [facility] Barbiturates Ql (U) Negative [facility] Benzodiazepines Ql (U) Negative [facility] Bilirubin Ql (U) Negative [facility] Cannabinoids Screen Ql (U) Negative [facility] Comment on above: These are unconfirme d results and should not be used for legal purposes. Drug Cut-Off Concentration: AMPH 1000 ng/mL DIANE 200 ng/mL ALICE 200 ng/mL COCM 300 ng/mL OP 300 ng/mL PCP 25 ng/mL THC 20 ng/mL Clarity Refractometry automated (U) Clear [facility] Cocaine Ql (U) Negative [facility] Color (U) Yellow [facility] Glucose Auto test strip (U) [Mass/Vol] 500 mg/dL High [facility] HCG ( test) Ql (U) Negative [facility] Hemoglobin Auto test strip Ql (U) Negative [facility] Ketones (U) [Mass/Vol] Negative [facility] Leukocyte esterase Auto test strip Ql (U) Negative [facility] Nitrite Ql (U) Negative [facility] Opiates Ql (U) Negative [facility] pH (U) 6.0 [pH] 5.0-9.0 [facility] Phencyclidine Ql (U) Negative [facility] Protein (U) [Mass/Vol] Negative [facility] Specific gravity (U) [Rel density] 1.020 1.001-1.030 [facility] Urobilinogen (U) [Mass/Vol] Normal mg/dL [facility] Microbiology Studieson 07-16 Staphylococcus aureus Staphylococcus aureus [facility] BASIC METABOLIC PANELon Glucose mass conc 565 mg/dL Critically high 70-100 [facility] Comment on above: Order Comment: GARCIA D ER 06/25/2018, 15:09, KJD, Called with verbal read back by Romeo Castillo. Result Comment: RESU LTS REPEATED AND CONFIRMED Performed By: #### B ASIC #### [address] [address] Anion gap molar conc 15.6 mmol/L Normal 10-14 [facility] [place], [place] Comment on above: Order Comment: GARCIA D ER 06/25/2018, 15:09, KJD, Called with verbal read back by Romeo Castillo. Performed By: #### B ASIC #### [address] [address] Calcium mass conc 9.8 mg/dL Normal 8.4-10.2 [facility] Comment on above: Order Comment: GARCIA D ER 06/25/2018, 15:09, KJD, Called with verbal read back by Romeo Castillo. Performed By: #### B ASIC #### [address] [address] CO2 molar conc 25.0 mm/Hg Normal 22.0-30.0 [facility] Comment on above: Order Comment: GARCIA D ER 06/25/2018, 15:09, KJD, Called with verbal read back by Romeo Castillo. Performed By: #### B ASIC #### [address] [address] Urea nitrogen mass conc 11 mg/dL Normal 7-22 [facility] Comment on above: Order Comment: GARCIA D ER 06/25/2018, 15:09, KJD, Called with verbal read back by Romeo Castillo. Performed By: #### B ASIC #### [address] [address] Creatinine mass conc 0.70 mg/dL Normal 0.70-1.20 [facility] [place] Comment on above: Order Comment: GARCIA D ER 06/25/2018, 15:09, KJD, Called with verbal read back by Romeo Castillo. Performed By: #### B ASIC #### [address] [address] GFR/1.73 sq M predicted among non-blacks MDRD vol rate/area (S/P/Bld) 98 mL/min/1.73 m2 Normal >60 [facility] Comment on above: Order Comment: GARCIA [...] OR very young -Races other than or -Chinese -People with acute illnesses, amputations, or acute kidney failure. Estimated GFR should be interpreted in clinical context and an alternative method such as a timed urine collection for creatinine clearance used to verify questionable results. (Ref. [employer] 2015) Performed By: #### B ASIC #### [address] [address] Chloride molar conc 94 mmol/L Low 100-110 [facility] Comment on above: Order Comment: GARCIA D ER 06/25/2018, 15:09, KJD, Called with verbal read back by Romeo Castillo. Performed By: #### B ASIC #### [address] [address] Potassium molar conc 4.1 mmol/L Normal 3.5-5.0 [facility] Comment on above: Order Comment: GARCIA D ER 06/25/2018, 15:09, KJD, Called with verbal read back by Romeo Castillo. Performed By: #### B ASIC #### [address] [address] Sodium molar conc 135 mmol/L Low 136-145 [facility] Comment on above: Order Comment: GARCIA D ER 06/25/2018, 15:09, KJD, Called with verbal read back by Romeo Castillo. Performed By: #### B ASIC #### [address] [address] CARP1 0 HR DRAWon 06-25-2018 Troponin I.cardiac mass conc ng/mL Normal 0.012-0.120 [facility] Comment on above: Order Comment: GARCIA D ER 06/25/2018, 15:09, KJD, Called with verbal read back by Romeo Castillo. Result Comment: RE FERENCE RANGE IS 0.012 - 0.120 ng/ml cTnI - The cutoff of 0.120 ng/ml is recommended for diagnosis of AMI, yielding optimal performance of 95% sensitivity and 93% specificity. Performed By: #### C TP0 #### [address] [address] CARP1 3 HR DRAWon 06-25-2018 Troponin I.cardiac mass conc ng/mL Normal 0.012-0.120 [facility] Comment on above: Result Comment: RE FERENCE RANGE IS 0.012 - 0.120 ng/ml cTnI - The cutoff of 0.120 ng/ml is recommended for diagnosis of AMI, yielding optimal performance of 95% sensitivity and 93% specificity. Performed By: #### C TP3 #### [address] [address] CBC WITH DIFFERENTIALon - Basophils #/vol (Bld) 0.07 10*3/uL Normal 0.00-0.20 [facility] Comment on above: Performed By: #### C BCD #### [address] [address] Basophils #/vol (Bld) 0.7 % Normal 0.0-2.0 [facility] [place], [place] Comment on above: Performed By: #### C BCD #### [address] [address] Eosinophils #/vol (Bld) 0.12 10*3/uL Normal 0.00-0.50 [facility] Comment on above: Performed By: #### C BCD #### [address] [address] Eosinophils/100 WBC (Bld) 1.2 % Normal 0.0-4.0 [facility] Comment on above: Performed By: #### C BCD #### [address] [address] Erythrocyte distribution width Ratio (RBC) 11.5 % Normal 11.5-14.5 [facility] Comment on above: Performed By: #### C BCD #### [address] [address] Hematocrit Volume Fraction (Bld) 42.3 % Normal 35.0-47.0 [facility] Comment on above: Performed By: #### C BCD #### [address] [address] Hemoglobin mass conc (Bld) 14.8 g/dL Normal 12.0-16.0 [facility] Comment on above: Performed By: #### C BCD #### [address] [address] Lymphocytes #/vol (Bld) 1.60 10*3/uL Normal 1.00-4.80 [facility] Comment on above: Performed By: #### C BCD #### [address] [address] Lymphocytes/100 WBC (Bld) 15.6 % Low 24.0-44.0 [facility] Comment on above: Performed By: #### C BCD #### [address] [address] MCH Entitic mass (RBC) 31.1 pg Normal 25.6-32.2 [facility] Comment on above: Performed By: #### C BCD #### [address] [address] MCHC mass conc (RBC) 35.0 g/dL Normal 32.0-36.0 [facility] Comment on above: Performed By: #### C BCD #### [address] [address] MCV Entitic volume (RBC) 88.9 fL Normal 82.0-98.0 [facility] Comment on above: Performed By: #### C BCD #### [address] [address] Monocytes #/vol (Bld) 0.56 10*3/uL Normal 0.20-1.20 [facility] Comment on above: Performed By: #### C BCD #### [address] [address] Monocytes/100 WBC (Bld) 5.5 % Normal 5.0-12.0 [facility] Comment on above: Performed By: #### C BCD #### [address] [address] Neutrophils #/vol (Bld) 7.84 10*3/uL High 2.00-7.50 [facility] Comment on above: Performed By: #### C BCD #### [address] [address] Neutrophils/100 WBC (Bld) 76.6 % High 36.0-66.0 [facility] Comment on above: Performed By: #### C BCD #### [address] [address] NRBC COUNT 0.00 Normal 0.00-0.50 [facility] Comment on above: Performed By: #### C BCD #### [address] [address] Nucleated RBC/100 WBC Ratio (Bld) 0.0 % Normal [facility] Comment on above: Performed By: #### C BCD #### [address] [address] Platelet mean volume Entitic volume (Bld) 9.7 fL Normal 9.4-12.4 [facility] Comment on above: Performed By: #### C BCD #### [address] [address] Platelets #/vol (Bld) 314 10*3/uL Normal 150-400 [facility] Comment on above: Performed By: #### C BCD #### [address] [address] RBC #/vol (Bld) 4.76 10*6/uL Normal 3.80-5.10 [facility] Comment on above: Performed By: #### C BCD #### [address] [address] WBC #/vol (Bld) 10.23 10*3/uL Normal 4.80-10.80 [facility] Comment on above: Performed By: #### C BCD #### [address] [address] CULTURE-URINEon 06-25-2018 CULTURE-URINE PATIENT: BRIDGET JEAN BAPTISTE LOCATION: Ani#: [id number] : 1975 AGE: 43 SEX: F ORDER# [id number] ORDERED BY: PRESTON ESPINO Source: URI Collected: [...] S Tobramycin <=4 S Trimeth/Sulfa <=2/ S Normal [facility] Comment on above: Performed By: #### C KYLEEIN #### [address] [address] D-DIMER QUANTITATIVEon 06-25 D-DIMER QUANTITATIVE 0.32 mg/L FEU Normal 0.00-0.50 [facility] Comment on above: Result Comment: 06-16 D-DIMER QUANTITATIVE REFERENCE INTERVAL: Anticoagulant therapy decreases the D-dimer levels and may generate false negative results Quantitative D-dimer performed on the Sysmex [id number] analyzer. Cutoff value is 0.50 mg/L FEU in an attempt to obtain a negative predictive value close to 100 percent. (for DVT and PE). Non-VTE causes of elevated D-dimer include: trauma, MS, stroke, sepsis, DIC, active collagen diseases, post-surgery, cancer, thrombolytic therapy, large hematoma, diabetes, and post-. Clinical data and imaging studies may be used in order to confirm a positive D-dimer test. The above D-dimer assay may be used for DIC screening in conjunction with other coagulation procedures (PT, PTT, fibrinogen and platelet count). Pathology consultation is available. 06-16-16 Performed By: #### D DIME #### [address] [address] MAGNESIUMon 06-25-2018 Magnesium mass conc 1.4 mg/dL Low 1.7-2.2 [facility] Comment on above: Order Comment: RADHA Long ER 06/25/2018, 15:09, KJD, Called with verbal read back by Romeo Castillo. Performed By: #### M AG #### [address] [address] UA COMPLETE AND REFLEX TO CU LTUREon 06-25-2018 BACTERIA 4+ /hpf Abnormal NONE [facility] Comment on above: Performed By: #### U RINR #### [address] [address] HYALINE CASTS NONE Normal NONE [facility] Comment on above: Performed By: #### U RINR #### [address] [address] RBC - URINE 7 /hpf High 0-2 [facility] Comment on above: Performed By: #### U RINR #### [address] [address] URINE EPITHELIAL CELLS 1 /hpf Normal 0-5 [facility] Comment on above: Performed By: #### U RINR #### [address] [address] URINE REFLEX CASTS NORMAL Normal [facility] Comment on above: Performed By: #### U RINR #### [address] [address] URINE REFLEX CELLS NORMAL Normal [facility] Comment on above: Performed By: #### U RINR #### [address] [address] URINE REFLEX CRYSTALS NORMAL Normal [facility] [place], [place] Comment on above: Performed By: #### U RINR #### [address] [address] URINE REFLEX YEAST NORMAL Normal [facility] Comment on above: Performed By: #### U RINR #### [address] [address] WBC - URINE 92 /hpf High 0-5 [facility] Comment on above: Performed By: #### U RINR #### [address] [address] Bilirubin.direct mass conc Negative Normal NEGATIVE [facility] Comment on above: Performed By: #### U RINR #### [address] [address] BLOOD Negative Normal NEGATIVE [facility] Comment on above: Performed By: #### U RINR #### [address] [address] Color Nom (U) LIGHT YELLOW Normal [facility] Comment on above: Performed By: #### U RINR #### [address] [address] Glucose Ql (U) >2000 Abnormal NEGATIVE [facility] Comment on above: Performed By: #### U RINR #### [address] [address] Ketones Ql (U) Negative Normal NEGATIVE [facility] Comment on above: Performed By: #### U RINR #### [address] [address] Leukocyte esterase Test strip Ql (U) MODERATE Abnormal NEGATIVE [facility] Comment on above: Performed By: #### U RINR #### [address] [address] NITRITES URINE 2+ mg/dL Abnormal NEGATIVE [facility] Comment on above: Performed By: #### U RINR #### [address] [address] pH (U) 5.5 [pH] Normal 6.0-8.5 [facility] Comment on above: Performed By: #### U RINR #### [address] [address] Protein mass conc (U) Negative Normal NEG/TRACE [facility] Comment on above: Performed By: #### U RINR #### [address] [address] Specific gravity Relative Density (U) 1.033 Normal 1.010 - 1.030 [facility] Comment on above: Performed By: #### U RINR #### [address] [address] TURBIDITY CLEAR [facility] Comment on above: Performed By: #### U RINR #### [address] [address] UROBILINOGEN URINE 0.2 mg/dL Normal <2.0 [facility] Comment on above: Performed By: #### U RINR #### [address] [address] METHOD OF COLLECTING URINE Not stated Normal [facility] Comment on above: Performed By: #### U RINR #### [address] [address] XR-Chest Xray - Portable One Viewon 06-25-2018 [...] cardiopulmonary disease. Read By: CÉSAR RICE DO [facility] Urinalysis, Routineon 2017 Acetaminophen mass conc Negative Normal NEG [facility] Comment on above: Performed By: #### C DP, BMP, BNP, TROPI, DIME, PT, PTT ####[address] [place] [address] Bilirubin (direct) Negative Normal NEG [facility] Comment on above: Performed By: #### C DP, BMP, BNP, TROPI, DIME, PT, PTT ####[facility] [address] [place] [address] Hemoglobin mass conc (Bld) Negative Normal NEG [facility] Comment on above: Performed By: #### C DP, BMP, BNP, TROPI, DIME, PT, PTT ####[address] [place] [address] Nitrite,Ur Positive Abnormal NEG [facility] Comment on above: Performed By: #### C DP, BMP, BNP, TROPI, DIME, PT, PTT ####[address] [place] [address] Turbidity SLIGHTLY CLOUDY Abnormal CLEAR [facility] Comment on above: Performed By: #### C DP, BMP, BNP, TROPI, DIME, PT, PTT ####[address] [place] [address] Urine, color YELLOW Normal YEL [facility] Comment on above: Performed By: #### C DP, BMP, BNP, TROPI, DIME, PT, PTT ####[address] [place] [address] Urine, glucose presence 3+ Abnormal NEG [facility] Comment on above: Performed By: #### C DP, BMP, BNP, TROPI, DIME, PT, PTT ####[address] [place] [address] Urine, leukocyte esterase presence Negative Normal NEG [facility] Comment on above: Result Comment: Perf ormed at [address] [place] [address] Performed By: #### C DP, BMP, BNP, TROPI, DIME, PT, PTT ####[address] [place] [address] Urine, pH 5.5 [pH] Normal 5.0-9.0 [facility] Comment on above: Performed By: #### C DP, BMP, BNP, TROPI, DIME, PT, PTT ####[address] [place] [address] Urine, protein presence Negative Normal NEG [facility] Comment on above: Performed By: #### C DP, BMP, BNP, TROPI, DIME, PT, PTT ####[address] [place] [address] Urine, specific gravity 1.020 Normal 1.010-1.020 [facility] Comment on above: Performed By: #### C DP, BMP, BNP, TROPI, DIME, PT, PTT ####[address] [place] [address] Urobilinogen,Ur Normal Normal NORM [facility] Comment on above: Performed By: #### C DP, BMP, BNP, TROPI, DIME, PT, PTT ####[address] [place] [address] Urinalysis,Microon 8 ----- Normal [facility] Comment on above: Performed By: #### C DP, BMP, BNP, TROPI, DIME, PT, PTT ####[address] [place] [address] Urine WBC's 10 TO 20 Normal 0-5 [facility] Comment on above: Performed By: #### C DP, BMP, BNP, TROPI, DIME, PT, PTT ####[address] [place] [address] Urine, bacteria in sediment 3+ Abnormal NONE [facility] Comment on above: Result Comment: Perf ormed at [address] [place] [address] Performed By: #### C DP, BMP, BNP, TROPI, DIME, PT, PTT ####[address] [place] [address] Urine, epithelial cells in sediment 0 TO 2 Normal 0-25 [facility] Comment on above: Performed By: #### C DP, BMP, BNP, TROPI, DIME, PT, PTT ####[address] [place] [address] Urine, erythrocytes 0 TO 2 Normal 0-2 [facility] Comment on above: Performed By: #### C DP, BMP, BNP, TROPI, DIME, PT, PTT ####[address] [place] [address] Basic Metabolic Profon 09-01 (cont.) Normal [facility] Comment on above: Result Comment: Aver age GFR for 40-49 years old: 99 mL/min/1.73sq mChronic Kidney Disease: <60 mL/min/1.73sq mKidney failure: <15 mL/min/1.73sq meGFR calculated using average adult body mass. Additional eGFR calculator available at:http://www.[employer]/multiple_crcl_2012.htm Performed By: #### C DP, BMP, BNP, TROPI, DIME, PT, PTT ####[address] [place] [address] Anion gap 18 mmol/L High 9-17 [facility] Comment on above: Performed By: #### C DP, BMP, BNP, TROPI, DIME, PT, PTT ####[address] [place] [address] BUN/CRE Ratio 12 Normal 9-20 [facility] Comment on above: Performed By: #### C DP, BMP, BNP, TROPI, DIME, PT, PTT ####[address] [place] [address] Calcium 7.9 mg/dL Low 8.6-10.4 [facility] Comment on above: Performed By: #### C DP, BMP, BNP, TROPI, DIME, PT, PTT ####[address] [facility]83 Chloride 101 mmol/L Normal 98-107 [facility] Comment on above: Performed By: #### C DP, BMP, BNP, TROPI, DIME, PT, PTT ####[address] , [facility] CO2 20 mmol/L Normal 20-31 [facility] Comment on above: Performed By: #### C DP, BMP, BNP, TROPI, DIME, PT, PTT ####[address] , [place] [address] Creatinine 0.60 mg/dL Normal 0.50-0.90 [facility] Comment on above: Performed By: #### C DP, BMP, BNP, TROPI, DIME, PT, PTT ####[address] , [facility]83 eGFR (non-black) mL/min/{1.73_m2} Normal >60 [facility] Comment on above: Performed By: #### C DP, BMP, BNP, TROPI, DIME, PT, PTT ####[address] [place] [address] Glucose mass conc 297 mg/dL High 70-99 [facility] Comment on above: Performed By: #### C DP, BMP, BNP, TROPI, DIME, PT, PTT ####[address] , [facility]83 Potassium molar conc 3.3 mmol/L Low 3.7-5.3 [facility] Comment on above: Performed By: #### C DP, BMP, BNP, TROPI, DIME, PT, PTT ####[address] , [facility]83 Sodium 139 mmol/L Normal 135-144 [facility] Comment on above: Performed By: #### C DP, BMP, BNP, TROPI, DIME, PT, PTT ####[address] [place] [address] Staging: Normal [facility] Comment on above: Result Comment: Stag e 1: Some kidney damage normal GFRStage 2: Mild kidney damage GFR 60-89Stage 3: Moderate kidney damage GFR 30-59Stage 4: Severe kidney damage GFR 15-29Stage 5: Severe kidney damage GFR <15ESRD - chronic treatment by dialysis or transplantPerformed at [address] [place] [address] Performed By: #### C DP, BMP, BNP, TROPI, DIME, PT, PTT ####[address] [place] [address] Urea nitrogen 7 mg/dL Normal 6-20 [facility] Comment on above: Performed By: #### C DP, BMP, BNP, TROPI, DIME, PT, PTT ####[address] [place] [address] Glucose mass conc 447 mg/dL Critically high 70-99 [facility] Comment on above: Performed By: #### C DP, BMP, BNP, TROPI, DIME, PT, PTT ####[address] [place] [address] (cont.) Normal [facility] Comment on above: Result Comment: Aver age GFR for 40-49 years old: 99 mL/min/1.73sq mChronic Kidney Disease: <60 mL/min/1.73sq mKidney failure: <15 mL/min/1.73sq meGFR calculated using average adult body mass. Additional eGFR calculator available at:http://www.[employer].com/multiple_crcl_2012.htm Performed By: #### C DP, BMP, BNP, TROPI, DIME, PT, PTT ####[address] [place] [address] Anion gap 21 mmol/L High 9-17 [facility] Comment on above: Performed By: #### C DP, BMP, BNP, TROPI, DIME, PT, PTT ####[address] , [place] [address] BUN/CRE Ratio 15 Normal 9-20 [facility] Comment on above: Performed By: #### C DP, BMP, BNP, TROPI, DIME, PT, PTT ####[address] , [facility]83 Calcium 9.4 mg/dL Normal 8.6-10.4 [facility] Comment on above: Performed By: #### C DP, BMP, BNP, TROPI, DIME, PT, PTT ####[address] , [facility]83 Chloride 94 mmol/L Low 98-107 [facility] Comment on above: Performed By: #### C DP, BMP, BNP, TROPI, DIME, PT, PTT ####[address] , [place] [address] CO2 20 mmol/L Normal 20-31 [facility] Comment on above: Performed By: #### C DP, BMP, BNP, TROPI, DIME, PT, PTT ####[address] [place] [address] Creatinine 0.62 mg/dL Normal 0.50-0.90 [facility] Comment on above: Performed By: #### C DP, BMP, BNP, TROPI, DIME, PT, PTT ####[address] , [facility]83 eGFR (non-black) mL/min/{1.73_m2} Normal >60 [facility] Comment on above: Performed By: #### C DP, BMP, BNP, TROPI, DIME, PT, PTT ####[address] , [place] [address] Potassium molar conc 3.5 mmol/L Low 3.7-5.3 [facility] Comment on above: Performed By: #### C DP, BMP, BNP, TROPI, DIME, PT, PTT ####[address] , [place] [address] Sodium 135 mmol/L Normal 135-144 [facility] Comment on above: Performed By: #### C DP, BMP, BNP, TROPI, DIME, PT, PTT ####[address] [place] [address] Staging: Normal [facility] Comment on above: Result Comment: Stag e 1: Some kidney damage normal GFRStage 2: Mild kidney damage GFR 60-89Stage 3: Moderate kidney damage GFR 30-59Stage 4: Severe kidney damage GFR 15-29Stage 5: Severe kidney damage GFR <15ESRD - chronic treatment by dialysis or transplantPerformed at [address] [place] [address] Performed By: #### C DP, BMP, BNP, TROPI, DIME, PT, PTT ####[address] [place] [address] Urea nitrogen 9 mg/dL Normal 6-20 [facility] Comment on above: Performed By: #### C DP, BMP, BNP, TROPI, DIME, PT, PTT ####[address] [place] [address] Beta Hydroxybutyrateon 09-01 Beta Hydroxybutyrate 0.74 mmol/L High 0.02-0.27 [facility] Comment on above: Result Comment: Perf ormed at [address] [place] [address] Performed By: #### C DP, BMP, BNP, TROPI, DIME, PT, PTT ####[address] [place] [address] CBCon 09-01-2017 Erythrocyte distribution width Auto Ratio (RBC) 12.6 % Normal 11.8-14.4 [facility] Comment on above: Performed By: #### C DP, BMP, BNP, TROPI, DIME, PT, PTT ####[address] [place] [address] Erythrocytes (RBC) 4.39 10*6/uL Normal 3.95-5.11 [facility] Comment on above: Performed By: #### C DP, BMP, BNP, TROPI, DIME, PT, PTT ####[address] [place] [address] Erythrocytes (RBC) 0.0 per 100 WBC Normal 0.0 M [facility] Comment on above: Result Comment: Perf ormed at [address] [id number] [phone] Performed By: #### C DP, BMP, BNP, TROPI, DIME, PT, PTT ####[address] [place] [address] Hematocrit (HCT) 39.2 % Normal 36.3-47.1 [facility] Comment on above: Performed By: #### C DP, BMP, BNP, TROPI, DIME, PT, PTT ####[address] [place] [address] Hemoglobin mass conc (Bld) 13.7 g/dL Normal 11.9-15.1 [facility] Comment on above: Performed By: #### C DP, BMP, BNP, TROPI, DIME, PT, PTT ####[address] [place] [address] MCH 31.2 pg Normal 25.2-33.5 [facility] Comment on above: Performed By: #### C DP, BMP, BNP, TROPI, DIME, PT, PTT ####[address] [place] [address] MCHC mass conc (RBC) 34.9 g/dL High 28.4-34.8 [facility] Comment on above: Performed By: #### C DP, BMP, BNP, TROPI, DIME, PT, PTT ####[address] [place] [address] MCV 89.3 fL Normal 82.6-102.9 [facility] Comment on above: Performed By: #### C DP, BMP, BNP, TROPI, DIME, PT, PTT ####[address] [place] [address] Platelet mean volume (PMV) 9.3 fL Normal 8.1-13.5 [facility] Comment on above: Performed By: #### C DP, BMP, BNP, TROPI, DIME, PT, PTT ####[address] [place] [address] Platelets 317 10*3/uL Normal 138-453 [facility] Comment on above: Performed By: #### C DP, BMP, BNP, TROPI, DIME, PT, PTT ####[address] [place] [address] WBC (Leukocytes) 9.0 10*3/uL Normal 3.5-11.3 [facility] Comment on above: Performed By: #### C DP, BMP, BNP, TROPI, DIME, PT, PTT ####[address] [place] [address] D-Dimer Teston 09-01-2017 D-Dimer Test 0.23 mg/L FEU Normal 0.19-0.50 [facility] Comment on above: Result Comment: [...] PE (negative predictive value of 98%).Performed at [address] 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 Lithiumon 09-01-2017 Ina 0.8 mmol/L Normal 0.6-1.2 [facility] Comment on above: Result Comment: Perf ormed at [address] [place] [address] Performed By: #### C DP, BMP, BNP, TROPI, DIME, PT, PTT ####[address] [place] [address] Date last dose, NOT REPORTED Normal [facility] Comment on above: Performed By: #### C DP, BMP, BNP, TROPI, DIME, PT, PTT ####[address] [place] [address] Dose amount, NOT REPORTED Normal [facility] Comment on above: Performed By: #### C DP, BMP, BNP, TROPI, DIME, PT, PTT ####[address] [place] [address] Time last dose, NOT REPORTED Normal [facility] Comment on above: Performed By: #### C DP, BMP, BNP, TROPI, DIME, PT, PTT ####[address] [place] [address] Magnesiumon 09-01-2017 Magnesium 1.5 mg/dL Low 1.6-2.6 [facility] Comment on above: Result Comment: Perf ormed at [address] [place] [address] Performed By: #### C DP, BMP, BNP, TROPI, DIME, PT, PTT ####[address] [place] [address] Troponinon 09-01-2017 Troponin I.cardiac mass conc Normal [facility] Comment on above: Result Comment: Refe rence Range: <0.03 Within reference range. 0.03-0.09 Possible myocardial damage.Repeat at appropriate intervals to rule out chronic elevation. >= 0.10 Indicative of myocardial damage.Patients with high levels of Biotin oral intake (i.e >5mg/day) may have falsely decreased Troponin T levels. Samples collected within 8 hours of biotin intake may require additional information for diagnosis.Performed at [address] [place] [address] Performed By: #### C DP, BMP, BNP, TROPI, DIME, PT, PTT ####[address] [place] [address] Troponin T.cardiac mass conc ug/L Normal <0.03 [facility] Comment on above: Result Comment: Trop onin T results cannot be compared to Troponin-I results. Performed By: #### C DP, BMP, BNP, TROPI, DIME, PT, PTT ####[address] [place] [address] Urinalysis, Routineon 2017 Comment NOT REPORTED Normal [facility] Comment on above: Performed By: #### C DP, BMP, BNP, TROPI, DIME, PT, PTT ####[address] [place] [address] Urinalysis,Microon 8 Epithelial, Renal NOT REPORTED Normal 0 [facility] Comment on above: Performed By: #### C DP, BMP, BNP, TROPI, DIME, PT, PTT ####[address] [place] [address] Mucus Strands NOT REPORTED Normal NONE [facility] Comment on above: Performed By: #### C DP, BMP, BNP, TROPI, DIME, PT, PTT ####[address] [place] [address] Other Observations NOT REPORTED [facility] Comment on above: Performed By: #### C DP, BMP, BNP, TROPI, DIME, PT, PTT ####[address] [place] [address] Trichomonas NOT REPORTED Normal NONE [facility] Comment on above: Performed By: #### C DP, BMP, BNP, TROPI, DIME, PT, PTT ####[address] [place] [address] Urine, amorphous sediment presence in sediment NOT REPORTED Normal [facility] Comment on above: Performed By: #### C DP, BMP, BNP, TROPI, DIME, PT, PTT ####[address] [place] [address] Urine, casts in sediment NOT REPORTED Normal [facility] Comment on above: Performed By: #### C DP, BMP, BNP, TROPI, DIME, PT, PTT ####[address] [place] [address] Urine, crystals in sediment NOT REPORTED Normal [facility] Comment on above: Performed By: #### C DP, BMP, BNP, TROPI, DIME, PT, PTT ####[address] [place] [address] Urine, yeast presence in sediment NOT REPORTED Normal [facility] Comment on above: Performed By: #### C DP, BMP, BNP, TROPI, DIME, PT, PTT ####[address] [place] [address] Venous Blood Gaseson 018 Bicarbonate (HCO3) 21.2 mmol/L Low 24.0-30.0 [facility] Comment on above: Performed By: #### C DP, BMP, BNP, TROPI, DIME, PT, PTT ####[address] [place] [address] Body Temp. 37.[address] [facility] Comment on above: Result Comment: Perf ormed at [address] [place] [address] Performed By: #### C DP, BMP, BNP, TROPI, DIME, PT, PTT ####[address] [place] [address] CO2 35.0 mmol/L Low 39-55 [facility] Comment on above: Performed By: #### C DP, BMP, BNP, TROPI, DIME, PT, PTT ####[address] [place] [address] Negative Base Excess 2.8 mmol/L High 0.0-2.0 [facility] Comment on above: Performed By: #### C DP, BMP, BNP, TROPI, DIME, PT, PTT ####[address] [place] [address] O2 saturation 67.0 % Normal 60.0-85.0 [facility] Comment on above: Performed By: #### C DP, BMP, BNP, TROPI, DIME, PT, PTT ####[address] [place] [address] Oxygen in arterial blood 34.6 mm[Hg] Normal 30.0-50.0 [facility] Comment on above: Performed By: #### C DP, BMP, BNP, TROPI, DIME, PT, PTT ####[address] [place] [address] pH of blood 7.400 [pH] Normal 7.32-7.42 [facility] Comment on above: Performed By: #### C DP, BMP, BNP, TROPI, DIME, PT, PTT ####[address] [place] [address] Chuckie Test NOT REPORTED Normal [facility] Comment on above: Performed By: #### C DP, BMP, BNP, TROPI, DIME, PT, PTT ####[address] [place] [address] CO2 NOT REPORTED Normal 39.0-55.0 [facility] Comment on above: Performed By: #### C DP, BMP, BNP, TROPI, DIME, PT, PTT ####[address] [place] [address] FIO2 NOT REPORTED Normal [facility] Comment on above: Performed By: #### C DP, BMP, BNP, TROPI, DIME, PT, PTT ####[address] [place] [address] Hemoglobin mass conc (Bld) NOT REPORTED Normal 95.0-98.0 [facility] Comment on above: Performed By: #### C DP, BMP, BNP, TROPI, DIME, PT, PTT ####[address] [place] [address] Mode NOT REPORTED Normal [facility] Comment on above: Performed By: #### C DP, BMP, BNP, TROPI, DIME, PT, PTT ####[address] [place] [address] Notification Time NOT REPORTED Normal [facility] Comment on above: Performed By: #### C DP, BMP, BNP, TROPI, DIME, PT, PTT ####[address] [place] [address] Notification: NOT REPORTED Normal [facility] Comment on above: Performed By: #### C DP, BMP, BNP, TROPI, DIME, PT, PTT ####[address] [place] [address] O2 Device/Flow/% NOT REPORTED Normal [facility] Comment on above: Performed By: #### C DP, BMP, BNP, TROPI, DIME, PT, PTT ####[address] [place] [address] PEEP/CPAP NOT REPORTED Normal [facility] Comment on above: Performed By: #### C DP, BMP, BNP, TROPI, DIME, PT, PTT ####[address] [place] [address] pH Adjst'd for Temp. NOT REPORTED Normal 7.320-7.420 M [facility] Comment on above: Performed By: #### C DP, BMP, BNP, TROPI, DIME, PT, PTT ####[address] [place] [address] pO2 Adj'd for Temp. NOT REPORTED Normal 30.0-50.0 [facility] Comment on above: Performed By: #### C DP, BMP, BNP, TROPI, DIME, PT, PTT ####[address] [place] [address] Positive Base Excess NOT REPORTED Normal 0.0-2.0 [facility] Comment on above: Performed By: #### C DP, BMP, BNP, TROPI, DIME, PT, PTT ####[address] [place] [address] PSV NOT REPORTED Normal [facility] Comment on above: Performed By: #### C DP, BMP, BNP, TROPI, DIME, PT, PTT ####[address] [place] [address] Pt. Position NOT REPORTED Normal [facility] Comment on above: Performed By: #### C DP, BMP, BNP, TROPI, DIME, PT, PTT ####[address] [place] [address] Respiratory rate NOT REPORTED Normal [facility] Comment on above: Performed By: #### C DP, BMP, BNP, TROPI, DIME, PT, PTT ####[address] [place] [address] Set Rate NOT REPORTED Normal [facility] Comment on above: Performed By: #### C DP, BMP, BNP, TROPI, DIME, PT, PTT ####[address] [place] [id number] Site Drawn NOT REPORTED Normal [facility] Comment on above: Performed By: #### C DP, BMP, BNP, TROPI, DIME, PT, PTT ####[address] [place] [address] Text for Respiratory NOT REPORTED Normal [facility] Comment on above: Performed By: #### C DP, BMP, BNP, TROPI, DIME, PT, PTT ####[address] [place] [address] Total Hb NOT REPORTED Normal 12.0-16.0 [facility] Comment on above: Performed By: #### C DP, BMP, BNP, TROPI, DIME, PT, PTT ####[address] , [place] [address] Total Rate NOT REPORTED Normal [facility] Comment on above: Performed By: #### C DP, BMP, BNP, TROPI, DIME, PT, PTT ####[address] , [place] [address] VT NOT REPORTED Normal [facility] Comment on above: Performed By: #### C DP, BMP, BNP, TROPI, DIME, PT, PTT ####[address] [place] [id number] XR CHEST (2 VW)on 09-01-2017 XR CHEST (2 VW) FINAL REPORTEXAM: XR CHEST (2 VW)HISTORY: shortness of breath TECHNIQUE: Two-view chest PRIORS: None.FINDINGS: Lung marquez are clear. No consolidation, pleural effusion, or pneumothorax. Cardio mediastinal silhouette is unremarkable. Chest port and pacer noted. IMPRESSION: Impression: No acute disease. Interpreted by:LUIS Dykesigned by:Ko Lua MD09/01/17inal result Normal [facility] PROGRESSon 07-17-2017 PROGRESS HNO ID: [id number] thor: Ben MurphyheyService: (none)Author Type: PhysicianType: Progress NotesFiled: 07/17/2017 10:07 AMNote Text:Heart and Vascular InstituteRobert and Pretty [facility] Department of Cardiovascular MedicineOUTPATIENT VISIT DATE 07/17/17OUTPATIENT VISIT TYPENEWPRATRIUM HEALTH CLEVELANDRY CARE PHYSICIAN:Cem Mario [id number] [facility] [address]Jsuta: [phone]: [phone] COMPLAINT:Patient presents with:Cardiac ClearanceHISTORY OF PRESENT ILLNESS:Addie Jean Baptiste is a 42 year old female with a 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 The patient is facingankle surgery in the near future. The patient is usually seen at [facility] cardiology practice. She states that she was [...] follow-up checkup in the near future in [place]. The patient hasnot had any problems with [...] 251-300 = 6 units 301-350 = 8 -851 = 10 unitsinsulin lispro (HUMALOG) 100 unit/mL [...] kg (196 lb) SpO2 96% BMI 35.85 kg/w0Wxkjicx: Well appearing, in no acute distress.Eyes: Conjunctiva [...] There there is no evidence of previous MS.I have personally reviewed the above Cardiovascular Medicine [...] first checkup of recently changed generator at [facility].4. Controlled type 2 diabetes mellitus without complication, [...] diet.Follow-up with her primary cardiology provider at [facility] aspreviously directed.A copy of this consultation note will be provided to the requestingphysician by way of shared medical record or to the requesting physicianvia U.S. Mail.This document was generated utilizing [employer]. I have reviewedand verified that the contents of the document are accurate with theexception of minor grammatical, spelling and punctuation errors.CONTACT INFORMATION:Thank you for allowing us to participate in the care of this very pleasantpatient. Please free to contact us if we can be of any furtherassistance.Ben De Jesus MD, FACCRobert and Pretty ZeeDepartment of Cardiovascular MedicineKettering Health Troyrt and Vascular Institute[address] [address]Mqirdp: [phone] Normal [facility] XR Lumbar Spine 2-3 Views (S tandard)on 06-26-2017 XR Lumbar Spine 2-3 Views (Standard) No acute osseous abnormality. If symptoms persist, further evaluation with MRI would be recommended. [facility]/jenn Workstation ID: [id number] Invalid Interpretation Code [employer] [facility] XR Lumbar Spine 2-3 Views (Standard) EXAMINATION: [...] Lumbar radiographs 01/30/2014. FINDINGS: There are 5 fom-flw-mpstzxs lumbar-type vertebral bodies in anatomic alignment. Mineralization is within normal limits. No acute fracture or dislocation. The sacroiliac joint spaces are unremarkable. Surgical clips are seen within the right upper quadrant of the abdomen. Invalid Interpretation Code [employer] [facility] XR Lumbar Spine 2-3 Views (Standard) Interface, Rad In Pacs Powerscribe - 06/27/2017 12:48 AM EST EXAMINATION: XR LUMBAR SPINE 2-3 VIEWS (STANDARD) HISTORY: ORDERING SYSTEM PROVIDED HISTORY: back pain, TECHNOLOGIST PROVIDED HISTORY: Reason for exam: Pt states she was at [email or web address] eating and then upon leaving went to [...] Lumbar radiographs 01/30/2014. FINDINGS: There are 5 mvz-sdh-zpoaatv lumbar-type vertebral bodies in anatomic alignment. Mineralization is within normal limits. No acute fracture or dislocation. The sacroiliac joint spaces are unremarkable. Surgical clips are seen within the right upper quadrant of the abdomen. IMPRESSION: No acute osseous abnormality. If symptoms persist, further evaluation with MRI would be recommended. [facility] Workstation ID: [id number] Invalid Interpretation Code [employer] [facility] XR Thoracic Spine 3 Views (S tandard)on 06-26-2017 XR Thoracic Spine 3 Views (Standard) No acute bony abnormalities. [facility] Workstation ID: [id number] Invalid Interpretation Code [employer]Cast [facility] XR Thoracic Spine 3 Views (Standard) EXAMINATION: XR THORACIC SPINE 3 VIEWS (STANDARD) HISTORY: ORDERING SYSTEM PROVIDED HISTORY: back pain, TECHNOLOGIST PROVIDED HISTORY: Reason for exam: Pt states she was at [email or web address] eating and then upon leaving went to [...] acute fractures or dislocations. Invalid Interpretation Code [employer] [facility] XR Thoracic Spine 3 Views (Standard) Interface, Rad In Pacs Powerscribe - 06/26/2017 9:04 PM EST EXAMINATION: XR THORACIC SPINE 3 VIEWS (STANDARD) HISTORY: ORDERING SYSTEM PROVIDED HISTORY: back pain, TECHNOLOGIST PROVIDED HISTORY: Reason for exam: Pt states she was [place] and then upon leaving went to [...] or dislocations. IMPRESSION: No acute bony abnormalities. [employer] Workstation ID: [id number] Invalid Interpretation Code [employer]Cast [facility] Cult,Urineon 02-17-2017 Cult,Urine Specimen Description .URINE Performed at [address] [place] [address] ([phone] Special Requests NOT REPORTEDCulture ESCHERICHIA COLI >[id number] CFU/ML Performed at [facility] Data [address] [place] [phone] Report Status FINAL 02/17/2017SUSCEPTIBILITYO rganism ECMethod MICAmikacin [...] SUSCEPTIBLETrimethoprim/S ulfa >=320 RESISTANTPiperacillin/Louis obactam <=4 SUSCEPTIBLE [place] Comment on above: Performed By: #### C DP, BMP, BNP, TROPI, DIME, PT, PTT ####[address] [place] [address] APTTon 02-16-2017 aPTT 23.1 s Low 23.2-34.4 [facility] Comment on above: Result Comment: Perf ormed at [address] [place] [address] ([phone] Performed By: #### C DP, BMP, BNP, TROPI, DIME, PT, PTT ####[address] [place] [address] Basic Metabolic Profon 02-16 (cont.) Normal [facility] Comment on above: Result Comment: Aver age GFR for 30-39 years old: 107 mL/min/1.73sq mChronic Kidney Disease: <60 mL/min/1.73sq mKidney failure: <15 mL/min/1.73sq meGFR calculated using average adult body mass. Additional eGFR calculator available at:http://www.[employer]/multiple_crcl_2012.htm Performed By: #### C DP, BMP, BNP, TROPI, DIME, PT, PTT ####[address] [place] [address] Anion gap 20 mmol/L High 9-17 [facility] Comment on above: Performed By: #### C DP, BMP, BNP, TROPI, DIME, PT, PTT ####[address] [place] [address] BUN/CRE Ratio 11 Normal 9-20 [facility] Comment on above: Performed By: #### C DP, BMP, BNP, TROPI, DIME, PT, PTT ####[address] [place] [address] Calcium 9.7 mg/dL Normal 8.6-10.4 [facility] Comment on above: Performed By: #### C DP, BMP, BNP, TROPI, DIME, PT, PTT ####[address] [place] [address] Chloride 94 mmol/L Low 98-107 [facility] Comment on above: Performed By: #### C DP, BMP, BNP, TROPI, DIME, PT, PTT ####[address] [place] [address] CO2 20 mmol/L Normal 20-31 [facility] Comment on above: Performed By: #### C DP, BMP, BNP, TROPI, DIME, PT, PTT ####[address] [place] [address] Creatinine 0.71 mg/dL Normal 0.50-0.90 [facility] Comment on above: Performed By: #### C DP, BMP, BNP, TROPI, DIME, PT, PTT ####[address] [place] [address] eGFR (non-black) mL/min/{1.73_m2} Normal >60 [facility] Comment on above: Performed By: #### C DP, BMP, BNP, TROPI, DIME, PT, PTT ####[address] [place] [address] Glucose mass conc 396 mg/dL High 70-99 [facility] Comment on above: Performed By: #### C DP, BMP, BNP, TROPI, DIME, PT, PTT ####[address] [place] [address] Potassium molar conc 4.3 mmol/L Normal 3.7-5.3 [facility] Comment on above: Performed By: #### C DP, BMP, BNP, TROPI, DIME, PT, PTT ####[address] [place] [address] Sodium 134 mmol/L Low 135-144 [facility] Comment on above: Performed By: #### C DP, BMP, BNP, TROPI, DIME, PT, PTT ####[address] [place] [address] Staging: Normal [facility] Comment on above: Result Comment: Stag e 1: Some kidney damage normal GFRStage 2: Mild kidney damage GFR 60-89Stage 3: Moderate kidney damage GFR 30-59Stage 4: Severe kidney damage GFR 15-29Stage 5: Severe kidney damage GFR <15ESRD - chronic treatment by dialysis or transplantPerformed at [address] [place] [address] Performed By: #### C DP, BMP, BNP, TROPI, DIME, PT, PTT ####[address] [place] [address] Urea nitrogen 8 mg/dL Normal 6-20 [facility] Comment on above: Performed By: #### C DP, BMP, BNP, TROPI, DIME, PT, PTT ####[address] [place] [address] Brain Natri. Peptideon 02-[address] [facility] Comment on above: Result Comment: Pro- BNP Reference Range:Rule Out: <300Grey Zone: Age <50 300-450 Age 50-75 300-900 Age >75 300-1800Usually represents mild to moderate HF but other cardiopulmonary causes cannot be ruled out.Rule In: Age <50 >450 Age 50-75 >900 Age >75 >1800Performed at [address] [place] [address] Performed By: #### C DP, BMP, BNP, TROPI, DIME, PT, PTT ####[address] [place] [address] BNP 117 pg/mL Normal <300 [facility] Comment on above: Result Comment: Pro- BNP results cannot be compared to BNP results. Performed By: #### C DP, BMP, BNP, TROPI, DIME, PT, PTT ####[address] [place] [address] CBC with Diffon 02-16-2017 Abs. Basophil 0.00 k/uL Normal 0.0-0.2 [facility] Comment on above: Result Comment: Perf ormed at [address] [place] [address] Performed By: #### C DP, BMP, BNP, TROPI, DIME, PT, PTT ####[address] [place] [address] Abs.Neutrophil (Seg) 8.70 k/uL High 1.8-7.7 [facility] Comment on above: Performed By: #### C DP, BMP, BNP, TROPI, DIME, PT, PTT ####[address] [place] [address] Basophils/100 WBC Auto (Bld) 0 % Normal [facility] Comment on above: Performed By: #### C DP, BMP, BNP, TROPI, DIME, PT, PTT ####[address] [facility]83 Eosinophils 0.10 10*3/uL Normal 0.0-0.4 [facility] Comment on above: Performed By: #### C DP, BMP, BNP, TROPI, DIME, PT, PTT ####[address] , [facility]83 Eosinophils/100 leukocytes 1 % Normal [facility] Comment on above: Performed By: #### C DP, BMP, BNP, TROPI, DIME, PT, PTT ####[address] , [place] [address] Erythrocyte distribution width Auto Ratio (RBC) 11.9 % Low 12.1-15.2 [facility] Comment on above: Performed By: #### C DP, BMP, BNP, TROPI, DIME, PT, PTT ####[address] , [place] [address] Erythrocytes (RBC) 5.01 10*6/uL Normal 4.0-5.2 [facility] Comment on above: Performed By: #### C DP, BMP, BNP, TROPI, DIME, PT, PTT ####[address] , [place] [address] Hematocrit (HCT) 45.2 % Normal 36-46 [facility] Comment on above: Performed By: #### C DP, BMP, BNP, TROPI, DIME, PT, PTT ####[address] , [place] [address] Hemoglobin mass conc (Bld) 15.5 g/dL Normal 12.0-16.0 [facility] Comment on above: Performed By: #### C DP, BMP, BNP, TROPI, DIME, PT, PTT ####[address] , [facility]83 Lymphocytes 2.00 10*3/uL Normal 1.0-4.8 [facility] Comment on above: Performed By: #### C DP, BMP, BNP, TROPI, DIME, PT, PTT ####[address] , [place] [address] Lymphocytes/100 leukocytes 18 % Normal [facility] Comment on above: Performed By: #### C DP, BMP, BNP, TROPI, DIME, PT, PTT ####[address] , [place] [address] MCH 31.0 pg Normal 26-34 [facility] Comment on above: Performed By: #### C DP, BMP, BNP, TROPI, DIME, PT, PTT ####[address] [place] [address] MCHC mass conc (RBC) 34.4 g/dL Normal 31-37 [facility] Comment on above: Performed By: #### C DP, BMP, BNP, TROPI, DIME, PT, PTT ####[address] , [place] [address] MCV 90.4 fL Normal 80-100 [facility] Comment on above: Performed By: #### C DP, BMP, BNP, TROPI, DIME, PT, PTT ####[address] , [place] [address] Monocytes 0.40 10*3/uL Normal 0.2-0.8 [facility] Comment on above: Performed By: #### C DP, BMP, BNP, TROPI, DIME, PT, PTT ####[address] , [place] [address] Monocytes/100 leukocytes 4 % Normal [facility] Comment on above: Performed By: #### C DP, BMP, BNP, TROPI, DIME, PT, PTT ####[address] , [place] [address] Neutrophil (Seg) 77 % Normal [facility] Comment on above: Performed By: #### C DP, BMP, BNP, TROPI, DIME, PT, PTT ####[address] [place] [address] Platelet mean volume (PMV) 8.1 fL Normal 6.0-12.0 [facility] Comment on above: Performed By: #### C DP, BMP, BNP, TROPI, DIME, PT, PTT ####[address] [place] [address] Platelets 340 10*3/uL Normal 140-450 [facility] Comment on above: Performed By: #### C DP, BMP, BNP, TROPI, DIME, PT, PTT ####[address] [place] [address] WBC (Leukocytes) 11.2 10*3/uL High 3.5-11.0 [facility] Comment on above: Performed By: #### C DP, BMP, BNP, TROPI, DIME, PT, PTT ####[address] [place] [address] Auto Diff Performed NOT REPORTED Normal [facility] Comment on above: Performed By: #### C DP, BMP, BNP, TROPI, DIME, PT, PTT ####[address] [place] [address] Erythrocyte morphology NOT REPORTED Normal [facility] Comment on above: Performed By: #### C DP, BMP, BNP, TROPI, DIME, PT, PTT ####[address] [place] [address] Platelets NOT REPORTED Normal [facility] Comment on above: Performed By: #### C DP, BMP, BNP, TROPI, DIME, PT, PTT ####[address] [place] [address] WBC Morphology NOT REPORTED Normal [facility] Comment on above: Performed By: #### C DP, BMP, BNP, TROPI, DIME, PT, PTT ####[address] [place] [address] D-Dimer Teston 02-16-2017 D-Dimer Test 0.26 mg/L FEU Normal 0.19-0.50 [facility] Comment on above: Result Comment: [...] PE (negative predictive value of 98%).Performed at [address] [place] [address] [phone] Performed By: #### C DP, BMP, BNP, TROPI, DIME, PT, PTT ####[address] [place] [address] ED Noteon 02-16-2017 HIM IP Note OR Mineral Industry Teacher Normal [facility] HIM IP Note OR Mineral Industry Teacher Normal [facility] HIM IP Note OR Mineral Industry Teacher Normal [facility] HIM IP Note OR Mineral Industry Teacher Normal [facility] HIM IP Note OR Mineral Industry Teacher Normal [facility] HIM IP Note OR Mineral Industry Teacher Normal [facility] HIM IP Note OR Mineral Industry Teacher Normal [facility] HIM IP Note OR Mineral Industry Teacher Normal [facility] IP Note OR Mineral Industry Teacher Normal [facility] HIM IP Note OR Mineral Industry Teacher Normal [facility] IP Note OR Mineral Industry Teacher Normal [facility] ED Provider Noteon 7 HIM IP Note OR Mineral Industry Teacher Normal [facility] PTon 02-16-2017 INR Coag RelTime (PPP) 0.9 {INR} Normal 0.9-1.2 [facility] Comment on above: Result Comment: Perf ormed at [address] [place] [address] [phone] Performed By: #### C DP, BMP, BNP, TROPI, DIME, PT, PTT ####[address] [address] Prothrombin time (PT) Coag time (PPP) 9.7 s Normal 9.7-12.2 [facility] Comment on above: Performed By: #### C DP, BMP, BNP, TROPI, DIME, PT, PTT ####[address] [place] [address] Troponinon 02-16-2017 Troponin I.cardiac mass conc Normal [facility] Comment on above: Result Comment: Refe rence Range: <0.03 Within reference range. 0.03-0.09 Possible myocardial damage.Repeat at appropriate intervals to rule out chronic elevation. >= 0.10 Indicative of myocardial damage.Performed at [address] [place] [address] Performed By: #### C DP, BMP, BNP, TROPI, DIME, PT, PTT ####[address] [place] [address] Troponin T.cardiac mass conc ug/L Normal <0.03 [facility] Comment on above: Result Comment: Trop onin T results cannot be compared to Troponin-I results. Performed By: #### C DP, BMP, BNP, TROPI, DIME, PT, PTT ####[address] [place] [address] Troponin I.cardiac mass conc Normal [facility] Comment on above: Result Comment: Refe rence Range: <0.03 Within reference range. 0.03-0.09 Possible myocardial damage.Repeat at appropriate intervals to rule out chronic elevation. >= 0.10 Indicative of myocardial damage.Performed at [address] [place] [address] Performed By: #### C DP, BMP, BNP, TROPI, DIME, PT, PTT ####[address] [place] [id number] Troponin T.cardiac mass conc ug/L Normal <0.03 [facility] Comment on above: Result Comment: Trop onin T results cannot be compared to Troponin-I results. Performed By: #### C DP, BMP, BNP, TROPI, DIME, PT, PTT ####[address] , [place] [address] UA w/Reflex Cultureon 2016 Acetaminophen mass conc 1+ Abnormal NEG [facility] Comment on above: Performed By: #### C DP, BMP, BNP, TROPI, DIME, PT, PTT ####[address] , [place] [address] Bilirubin (direct) Negative Normal NEG [facility] Comment on above: Performed By: #### C DP, BMP, BNP, TROPI, DIME, PT, PTT ####[address] , [place] [address] Hemoglobin mass conc (Bld) TRACE Abnormal NEG [facility] Comment on above: Performed By: #### C DP, BMP, BNP, TROPI, DIME, PT, PTT ####[address] [place] [address] Nitrite,Ur Positive Abnormal NEG [facility] Comment on above: Performed By: #### C DP, BMP, BNP, TROPI, DIME, PT, PTT ####[address] [place] [address] Turbidity SLIGHTLY CLOUDY Abnormal CLEAR [facility] Comment on above: Performed By: #### C DP, BMP, BNP, TROPI, DIME, PT, PTT ####[address] [place] [address] Urine, color YELLOW Normal YEL [facility] Comment on above: Performed By: #### C DP, BMP, BNP, TROPI, DIME, PT, PTT ####[address] [place] [address] Urine, glucose presence 3+ Abnormal NEG [facility] Comment on above: Performed By: #### C DP, BMP, BNP, TROPI, DIME, PT, PTT ####[address] [place] [address] Urine, leukocyte esterase presence TRACE Abnormal NEG [facility] Comment on above: Result Comment: Perf ormed at [address] [place] [address] Performed By: #### C DP, BMP, BNP, TROPI, DIME, PT, PTT ####[address] [place] [address] Urine, pH 7.0 [pH] Normal 5.0-9.0 [facility] Comment on above: Performed By: #### C DP, BMP, BNP, TROPI, DIME, PT, PTT ####[address] [place] [address] Urine, protein presence Negative Normal NEG [facility] Comment on above: Performed By: #### C DP, BMP, BNP, TROPI, DIME, PT, PTT ####[address] [place] [address] Urine, specific gravity 1.010 Normal 1.010-1.020 [facility] Comment on above: Performed By: #### C DP, BMP, BNP, TROPI, DIME, PT, PTT ####[address] [place] [address] Urobilinogen,Ur Normal Normal NORM [facility] Comment on above: Performed By: #### C DP, BMP, BNP, TROPI, DIME, PT, PTT ####[address] [place] [address] Comment NOT REPORTED Normal [facility] Comment on above: Performed By: #### C DP, BMP, BNP, TROPI, DIME, PT, PTT ####[address] [place] [address] Urinalysis,Microon 7 ----- Normal [facility] Comment on above: Performed By: #### C DP, BMP, BNP, TROPI, DIME, PT, PTT ####[address] [place] [address] Urine WBC's 10 TO 20 Normal 0-5 [facility] Comment on above: Performed By: #### C DP, BMP, BNP, TROPI, DIME, PT, PTT ####[address] [place] [address] Urine, bacteria in sediment 3+ Abnormal NONE [facility] Comment on above: Result Comment: Perf ormed at [address] [place] [address] Performed By: #### C DP, BMP, BNP, TROPI, DIME, PT, PTT ####[address] [place] [address] Urine, epithelial cells in sediment 2 TO 5 Normal 0-25 [facility] Comment on above: Performed By: #### C DP, BMP, BNP, TROPI, DIME, PT, PTT ####[address] [place] [address] Urine, erythrocytes 0 TO 2 Normal 0-2 [facility] Comment on above: Performed By: #### C DP, BMP, BNP, TROPI, DIME, PT, PTT ####[address] [place] [address] Epithelial, Renal NOT REPORTED Normal 0 [facility] Comment on above: Performed By: #### C DP, BMP, BNP, TROPI, DIME, PT, PTT ####[address] [place] [address] Mucus Strands NOT REPORTED Normal NONE [facility] Comment on above: Performed By: #### C DP, BMP, BNP, TROPI, DIME, PT, PTT ####[address] [place] [address] Other Observations NOT REPORTED [facility] Comment on above: Performed By: #### C DP, BMP, BNP, TROPI, DIME, PT, PTT ####[address] [place] [address] Trichomonas NOT REPORTED Normal [facility] Comment on above: Performed By: #### C DP, BMP, BNP, TROPI, DIME, PT, PTT ####[address] [place] [address] Urine, amorphous sediment presence in sediment NOT REPORTED Normal [facility] Comment on above: Performed By: #### C DP, BMP, BNP, TROPI, DIME, PT, PTT ####[address] [place] [address] Urine, casts in sediment NOT REPORTED Normal [facility] Comment on above: Performed By: #### C DP, BMP, BNP, TROPI, DIME, PT, PTT ####[address] [place] [address] Urine, crystals in sediment NOT REPORTED Normal [facility] Comment on above: Performed By: #### C DP, BMP, BNP, TROPI, DIME, PT, PTT ####[address] [place] [address] Urine, yeast presence in sediment NOT REPORTED Normal [facility] Comment on above: Performed By: #### C DP, BMP, BNP, TROPI, DIME, PT, PTT ####[address] [place] [address] XR CHEST PORTABLEon 02-17-20 17 XR CHEST PORTABLE REPORT: Chest PA and [...] Migueligned by:Stephany Villafana MD02/16/17Final result Normal [facility] Laboratory Studieson -18-2 017 Urine Drug Screen (T) Final [facility] Comment on above: ==== TOXASSURE COMP DRUG [...] . ==== Urine Drug Screen Interpretation . [facility] Comment on above: See report. Scanned copy available in EMR. Performed at: [facility] [employer] [address] [place] [id number] Motion Designer: Laura Damon MD, Phone: [phone] Vital Signs Date Time Vital Sign Value Performing Clinician Carol hansen 12-05-2024 12:15-0400 Body temperature 98.71 [degF] Elda gAuirre MD Work Phone: [facility] 12-05-2024 12:15-0400 Diastolic blood pressure 86 mm[Hg] Elda Aguirre MD Work Phone: [facility] 12-05-2024 12:15-0400 Heart rate 82 /min Elda Aguirre MD Work Phone: [facility] 12-05-2024 12:15-0400 Respiratory rate 14 /min Elda Aguirre MD Work Phone: [facility] 12-05-2024 12:15-0400 Systolic blood pressure 149 mm[Hg] Elda Aguirre MD Work Phone: [facility] 12-05-2024 08:12-0400 SaO2% (BldA) [Mass fraction] 94 % Elda Aguirre MD Work Phone: [facility] 12-03-2024 00:15-0400 Body height 157.5 cm Elda Aguirre MD Work Phone: [facility] 12-03-2024 00:15-0400 Body mass index (BMI) [Ratio] 44.91 kg/m2 Elda Aguirre MD Work Phone: [facility] 12-03-2024 00:15-0400 Body weight 111.4 kg Elda Aguirre MD Work Phone: [facility] 09-23-2024 10:55-0400 Diastolic blood pressure 84 mm[Hg] Jim Agustin DO Work Phone: [facility] 09-23-2024 10:55-0400 Heart rate 110 /min Jim Velez Work Phone: [facility] 09-23-2024 10:55-0400 SaO2% (BldA) [Mass fraction] 98 % Bridgerchandni Velez DO Work Phone: [facility] 09-23-2024 10:55-0400 Systolic blood pressure 121 mm[Hg] Jim Agustin DUMONT Work Phone: [facility] 08-29-2024 13:49-0400 Body height 157.48 cm No Doctor [facility] Work Phone: 08-29-2024 13:49-0400 Body mass index (BMI) [Ratio] 51.2 kg/m2 No [facility] Work Phone: 08-29-2024 13:49-0400 Body temperature 97.6 [degF] No [facility] Work Phone: 08-29-2024 13:49-0400 Body weight 127.01 kg No [facility] Work Phone: 08-29-2024 13:49-0400 Diastolic blood pressure 90 mm[Hg] No [facility] Work Phone: 08-29-2024 13:49-0400 Heart rate 94 /min No Doctor [facility] Work Phone: 08-29-2024 13:49-0400 Respiratory rate 16 /min [facility] Work Phone: 08-29-2024 13:49-0400 SaO2% (BldA) [Mass fraction] 99 % No Doctor [facility] Work Phone: 08-29-2024 13:49-0400 Systolic blood pressure 193 mm[Hg] No Doctor [facility] Work Phone: 08-02-2024 15:13-0400 Diastolic blood pressure 83 mm[Hg] Stephany McCague PA-C Work Phone: [facility] 08-02-2024 15:13-0400 Systolic blood pressure 122 mm[Hg] Stephany McCague PA-C Work Phone: [facility] 08-02-2024 14:25-0400 Body height 157.5 cm Stephany McCague PA-C Work Phone: [facility] 08-02-2024 14:25-0400 Heart rate 88 /min Stephany McCague PA-C Work Phone: [facility] 08-02-2024 14:25-0400 SaO2% (BldA) [Mass fraction] 95 % Stephany McCague PA-C Work Phone: [facility] 07-15-2024 10:57-0500 Body height 157.5 cm Stephany McCague PA-C Work Phone: [facility] 07-15-2024 10:57-0500 Diastolic blood pressure 88 mm[Hg] Stephany McCague PA-C Work Phone: [facility] 07-15-2024 10:57-0500 Heart rate 87 /min Stephany McCague PA-C Work Phone: [facility] 07-15-2024 10:57-0500 SaO2% (BldA) [Mass fraction] 98 % Stephany RUBALCAVA-C Work Phone: [facility] 07-15-2024 10:57-0500 Systolic blood pressure 116 mm[Hg] Stephany Pelayo PA-C Work Phone: [facility] 07-05-2024 08:26-0500 Body height 157.5 cm Soto Box DPM FACFA S Work Phone: [facility] 07-05-2024 08:26-0500 Body mass index (BMI) [Ratio] 42.62 kg/m2 Soto Box DPM FACFAS Work Phone: [facility] 07-05-2024 08:26-0500 Body weight 105.69 kg Soto Box DPM FACFA S Work Phone: [facility] 07-05-2024 08:26-0500 Diastolic blood pressure 75 mm[Hg] Soto Box DPM FACFAS Work Phone: [facility] 07-05-2024 08:26-0500 Heart rate 77 /min Soto Box DPM FACFA S Work Phone: [facility] 07-05-2024 08:26-0500 Systolic blood pressure 128 mm[Hg] Soto Box DPM FACFAS Work Phone: [facility] 05-13-2024 08:32-0500 Body height 157.5 cm Mihai Lavonne USABILITY SPECIALIST Work Phone: [facility] 05-13-2024 08:32-0500 Body mass index (BMI) [Ratio] 51.32 kg/m2 Mihai Lavonne USABILITY SPECIALIST Work Phone: [facility] 05-13-2024 08:32-0500 Body weight 127.28 kg Mihai Lavonne USABILITY SPECIALIST Work Phone: [facility] 05-13-2024 08:32-0500 Diastolic blood pressure 109 mm[Hg] Mihai Lavonne USABILITY SPECIALIST Work Phone: [facility] 05-13-2024 08:32-0500 Heart rate 90 /min Mihai Lavonne USABILITY SPECIALIST Work Phone: [facility] 05-13-2024 08:32-0500 Systolic blood pressure 173 mm[Hg] Mihai Elizalde USABILITY SPECIALIST Work Phone: [facility] 04-29-2024 13:41-0500 Respiratory rate 16 /min Ali Kamille DO Work Phone: [facility] 04-29-2024 11:37-0500 Body temperature 97.5 [degF] Ali Kamille DO Work Phone: [facility] 04-29-2024 11:37-0500 Diastolic blood pressure 73 mm[Hg] Ali Kamille DO Work Phone: [facility] 04-29-2024 11:37-0500 Heart rate 78 /min Ali Kamille DO Work Phone: [facility] 04-29-2024 11:37-0500 SaO2% (BldA) [Mass fraction] 98 % Ali Kamille DO Work Phone: [facility] 04-29-2024 11:37-0500 Systolic blood pressure 114 mm[Hg] Ali Kamille DO Work Phone: [facility] 04-29-2024 03:00-0500 Body mass index (BMI) [Ratio] 51.73 kg/m2 Ali Kamille DO Work Phone: [facility] 04-29-2024 03:00-0500 Body weight 128.3 kg Ali Kamille DO Work Phone: [facility] 04-27-2024 01:27-0500 Body height 157.5 cm Ali Kamille DO Work Phone: [facility] 04-04-2024 15:44-0500 Diastolic blood pressure 87 mm[Hg] Ruthy Dong MD Work Phone: [facility] 04-04-2024 15:44-0500 Heart rate 66 /min Ruthy Dong MD Work Phone: [facility] 04-04-2024 15:44-0500 Respiratory rate 18 /min Ruthy Dong MD Work Phone: [facility] 04-04-2024 15:44-0500 SaO2% (BldA) [Mass fraction] 94 % Ruthy Dong MD Work Phone: [facility] 04-04-2024 15:44-0500 Systolic blood pressure 149 mm[Hg] Ruthy Dong MD Work Phone: [facility] 04-04-2024 11:24-0500 Body temperature 97.81 [degF] Ruthy Dong MD Work Phone: [facility] 03-30-2024 04:29-0500 Body mass index (BMI) [Ratio] 49.84 kg/m2 Ruthy Dong MD Work Phone: [facility] 03-30-2024 04:29-0500 Body weight 123.6 kg Ruthy Dong MD Work Phone: [facility] 03-25-2024 01:58-0400 Body height 157.5 cm Ruthy Dong MD Work Phone: [facility] 03-22-2024 11:23-0400 Diastolic blood pressure 94 mm[Hg] Stephany Pelayo PA-C Work Phone: [facility] 03-22-2024 11:23-0400 Systolic blood pressure 142 mm[Hg] Stephany Pelayo PA-C Work Phone: [facility] 03-22-2024 10:41-0400 Body height 157.5 cm Stephany Pelayo PA-C Work Phone: [facility] 03-22-2024 10:41-0400 Heart rate 103 /min Stephany Pelayo PA-C Work Phone: [facility] 03-22-2024 10:41-0400 SaO2% (BldA) [Mass fraction] 98 % Stephany Pelayo PA-C Work Phone: [facility] 02-11-2024 11:41-0400 Diastolic blood pressure 126 mm[Hg] Stephany Pelayo PA-C Work Phone: [facility] 02-11-2024 11:41-0400 Systolic blood pressure 193 mm[Hg] Stephany Pelayo PA-C Work Phone: [facility] 02-11-2024 11:03-0400 Body height 157.5 cm Stephany Pelayo PA-C Work Phone: [facility] 02-11-2024 11:03-0400 Heart rate 89 /min Stephany Pelayo PA-C Work Phone: [facility] 02-11-2024 11:03-0400 SaO2% (BldA) [Mass fraction] 97 % Stephany Pelayo PA-C Work Phone: [facility] 02-02-2024 16:04-0400 Body mass index (BMI) [Ratio] 51.21 kg/m2 Jim Velez DO Work Phone: [facility] 02-02-2024 16:04-0400 Body weight 127.01 kg Jim Velez DO Work Phone: [facility] 02-02-2024 16:04-0400 Diastolic blood pressure 108 mm[Hg] Jim Velez DO Work Phone: [facility] 02-02-2024 16:04-0400 Heart rate 96 /min Jim Velez DO Work Phone: [facility] 02-02-2024 16:04-0400 Respiratory rate 18 /min Jim Velez DO Work Phone: [facility] 02-02-2024 16:04-0400 SaO2% (BldA) [Mass fraction] 96 % Jim Velez DO Work Phone: [facility] 02-02-2024 16:04-0400 Systolic blood pressure 181 mm[Hg] Jim Velez DO Work Phone: [facility] 01-27-2024 13:36-0400 Body height 157.5 cm Rafaela Medrano CNP Work Phone: [facility] Comment on above: per pt 09-04-2024 13:36-0400 Body mass index (BMI) [Ratio] 51.03 kg/m2 Rafaela Medrano USABILITY SPECIALIST Work Phone: [facility] 01-27-2024 13:36-0400 Body weight 126.55 kg Rafaela Medrano USABILITY SPECIALIST Work Phone: [facility] 01-27-2024 13:36-0400 Diastolic blood pressure 90 mm[Hg] Rafaela Ventural USABILITY SPECIALIST Work Phone: [facility] 01-27-2024 13:36-0400 Heart rate 90 /min Rafaela Ventural USABILITY SPECIALIST Work Phone: [facility] 01-27-2024 13:36-0400 SaO2% (BldA) [Mass fraction] 94 % Rafaela Medrano USABILITY SPECIALIST Work Phone: [facility] 01-27-2024 13:36-0400 Systolic blood pressure 139 mm[Hg] Rafaela Ventural USABILITY SPECIALIST Work Phone: [facility] 01-18-2024 08:56-0400 Respiratory rate 16 /min Harshad Rizzo MD Work Phone: [facility] 01-18-2024 08:18-0400 Body temperature 97.7 [degF] Harshad Rizzo MD Work Phone: [facility] 01-18-2024 08:18-0400 Diastolic blood pressure 78 mm[Hg] Harshad Rizzo MD Work Phone: [facility] 01-18-2024 08:18-0400 Heart rate 65 /min Harshad Rizzo MD Work Phone: [facility] 01-18-2024 08:18-0400 Systolic blood pressure 140 mm[Hg] Harshad Rizzo MD Work Phone: [facility] 01-18-2024 02:58-0400 Body mass index (BMI) [Ratio] 52.62 kg/m2 Harshad Rizzo MD Work Phone: [facility] 01-18-2024 02:58-0400 Body weight 130.5 kg Harshad Rizzo MD Work Phone: [facility] 01-18-2024 02:58-0400 SaO2% (BldA) [Mass fraction] 94 % Harshad Rizzo MD Work Phone: [facility] 01-12-2024 14:36-0400 Body height 157.5 cm Harshad Rizzo MD Work Phone: [facility] 01-12-2024 13:59-0400 Diastolic blood pressure 93 mm[Hg] tSephany Pelayo PA-C Work Phone: [facility] 01-12-2024 13:59-0400 Systolic blood pressure 139 mm[Hg] Stephany Pelayo PA-C Work Phone: [facility] 01-12-2024 13:38-0400 Body height 157.5 cm Stephany Pelayo PA-C Work Phone: [facility] 01-12-2024 13:38-0400 Heart rate 96 /min Stephany Pelayo PA-C Work Phone: [facility] 01-12-2024 13:38-0400 SaO2% (BldA) [Mass fraction] 95 % Stephany Pelayo PA-C Work Phone: [facility] 12-08-2023 13:53-0400 Body mass index (BMI) [Ratio] 47.55 kg/m2 Jim Velez DO Work Phone: [facility] 12-08-2023 13:53-0400 Body weight 117.94 kg Jim Velez DO Work Phone: [facility] 12-08-2023 13:53-0400 Diastolic blood pressure 113 mm[Hg] Jim Velez DO Work Phone: [facility] 12-08-2023 13:53-0400 Heart rate 91 /min Jim Velez DO Work Phone: [facility] 12-08-2023 13:53-0400 Respiratory rate 18 /min Jim Velez DO Work Phone: [facility] 12-08-2023 13:53-0400 SaO2% (BldA) [Mass fraction] 93 % Jim Velez DO Work Phone: [facility] 12-08-2023 13:53-0400 Systolic blood pressure 166 mm[Hg] Jim Agustin DO Work Phone: [facility] 12-02-2023 13:53-0400 Body height 157.5 cm Sahara Sanchez MD Work Phone: [facility] 12-02-2023 13:53-0400 Body mass index (BMI) [Ratio] 49.93 kg/m2 Sahara Sanchez MD Work Phone: [facility] 12-02-2023 13:53-0400 Body weight 123.83 kg Sahara Sanchez MD Work Phone: [facility] 12-02-2023 13:53-0400 Diastolic blood pressure 92 mm[Hg] Sahara Sanchez MD Work Phone: [facility] 12-02-2023 13:53-0400 Heart rate 92 /min Sahara Sanchez MD Work Phone: [facility] 12-02-2023 13:53-0400 Respiratory rate 16 /min Sahara Sanchez MD Work Phone: [facility] 12-02-2023 13:53-0400 Systolic blood pressure 153 mm[Hg] Sahara Sanchez MD Work Phone: [facility] 12-01-2023 15:34-0400 Body height 157.5 cm Stephany Pelayo PA-C Work Phone: [facility] 12-01-2023 15:34-0400 Body temperature 98.01 [degF] Stephany Pelayo PA-C Work Phone: [facility] 12-01-2023 15:34-0400 Diastolic blood pressure 72 mm[Hg] Stephany Pelayo PA-C Work Phone: [facility] 12-01-2023 15:34-0400 Heart rate 106 /min Stephany Pelayo PA-C Work Phone: [facility] 12-01-2023 15:34-0400 SaO2% (BldA) [Mass fraction] 98 % Stephany Gita PA-C Work Phone: [facility] 12-01-2023 15:34-0400 Systolic blood pressure 131 mm[Hg] Stephany Pelayo PA-C Work Phone: [facility] 11-09-2023 15:47-0400 Diastolic blood pressure 99 mm[Hg] Anders London MD Work Phone: [facility] 11-09-2023 15:47-0400 Heart rate 90 /min Anders London MD Work Phone: [facility] 11-09-2023 15:47-0400 Systolic blood pressure 144 mm[Hg] Anders London MD Work Phone: [facility] 10-13-2023 11:49-0400 Diastolic blood pressure 109 mm[Hg] Stephany Pelayo PA-C Work Phone: [facility] 10-13-2023 11:49-0400 Systolic blood pressure 169 mm[Hg] Stephany McCmanuela PA-C Work Phone: [facility] 10-13-2023 11:24-0400 Body temperature 97 [degF] Stephany Pelayo PA-C Work Phone: [facility] 10-13-2023 11:24-0400 Heart rate 93 /min Stephany Pelayo PA-C Work Phone: [facility] 10-13-2023 11:24-0400 SaO2% (BldA) [Mass fraction] 95 % Stephany McCmanuela PA-C Work Phone: [facility] 10-07-2023 15:04-0400 Diastolic blood pressure 91 mm[Hg] Rosario Sanchez MD Work Phone: [facility] 10-07-2023 15:04-0400 Heart rate 98 /min Rosario Sanchez MD Work Phone: [facility] 10-07-2023 15:04-0400 SaO2% (BldA) [Mass fraction] 96 % Rosario Sanchez MD Work Phone: [facility] 10-07-2023 15:04-0400 Systolic blood pressure 169 mm[Hg] Rosario Sanchez MD Work Phone: [facility] 09-16-2023 13:07-0400 Diastolic blood pressure 100 mm[Hg] Virgen Campos MD Work Phone: [facility] 09-16-2023 13:07-0400 Heart rate 97 /min Virgen Campos MD Work Phone: [facility] 09-16-2023 13:07-0400 SaO2% (BldA) [Mass fraction] 97 % Virgen Campos MD Work Phone: [facility] 09-16-2023 13:07-0400 Systolic blood pressure 166 mm[Hg] Virgen Campos MD Work Phone: [facility] 09-03-2023 14:30-0400 Diastolic blood pressure 88 mm[Hg] Stephany Pelayo PA-C Work Phone: [facility] 09-03-2023 14:30-0400 Systolic blood pressure 138 mm[Hg] Stephany Pelayo PA-C Work Phone: [facility] 09-03-2023 13:43-0400 Body height 157.5 cm Stephany Pelayo PA-C Work Phone: [facility] 09-03-2023 13:43-0400 Body mass index (BMI) [Ratio] 50.66 kg/m2 Stephany Pelayo PA-C Work Phone: [facility] 09-03-2023 13:43-0400 Body temperature 97.7 [degF] Stephany Pelayo PA-C Work Phone: [facility] 09-03-2023 13:43-0400 Body weight 125.65 kg Stephany Pelayo PA-C Work Phone: [facility] 09-03-2023 13:43-0400 Heart rate 91 /min Stephany Pelayo PA-C Work Phone: [facility] 09-03-2023 13:43-0400 SaO2% (BldA) [Mass fraction] 98 % Stephany Pelayo PA-C Work Phone: [facility] 08-26-2023 19:31-0400 Diastolic blood pressure 93 mm[Hg] Floyd Mercado MD Work Phone: [facility] 08-26-2023 19:31-0400 Systolic blood pressure 154 mm[Hg] Floyd Mercado MD Work Phone: [facility] 08-26-2023 17:47-0400 Body temperature 97.39 [degF] Floyd Mercado MD Work Phone: [facility] 08-26-2023 17:47-0400 Heart rate 100 /min Floyd Mercado MD Work Phone: [facility] [facility] 08-26-2023 17:47-0400 Respiratory rate 15 /min Floyd Mercado MD Work Phone: [facility] 08-26-2023 17:47-0400 SaO2% (BldA) [Mass fraction] 99 % Floyd Mercado MD Work Phone: [facility] 08-03-2023 14:22-0400 Diastolic blood pressure 90 mm[Hg] Rosario Sanchez MD Work Phone: [facility] 08-03-2023 14:22-0400 Heart rate 103 /min Rosario Sanchez MD Work Phone: [facility] 08-03-2023 14:22-0400 Systolic blood pressure 140 mm[Hg] Rosario Sanchez MD Work Phone: [facility] 06-22-2023 14:54-0500 Diastolic blood pressure 91 mm[Hg] Harris Bhat MD Work Phone: [facility] 06-22-2023 14:54-0500 Systolic blood pressure 162 mm[Hg] Harris Bhat MD Work Phone: [facility] 06-22-2023 14:40-0500 Body height 157.5 cm Harris Bhat MD Work Phone: [facility] 06-22-2023 14:40-0500 Body temperature 97.39 [degF] Harris Bhat MD Work Phone: [facility] 06-22-2023 14:40-0500 Heart rate 96 /min Harris Bhat MD Work Phone: [facility] 06-22-2023 14:40-0500 SaO2% (BldA) [Mass fraction] 98 % Harris Bhat MD Work Phone: [facility] 05-15-2023 15:09-0500 Body height 157.5 cm Stephany Pelayo PA-C Work Phone: [facility] 05-15-2023 15:09-0500 Body mass index (BMI) [Ratio] 47.55 kg/m2 Stephany Pelayo PA-C Work Phone: [facility] 05-15-2023 15:09-0500 Body temperature 97.3 [degF] Stephany Pelayo PA-C Work Phone: [facility] 05-15-2023 15:09-0500 Body weight 117.94 kg Stephany Pelayo PA-C Work Phone: [facility] 05-15-2023 15:09-0500 Diastolic blood pressure 78 mm[Hg] Stephany Pelayo PA-C Work Phone: [facility] 05-15-2023 15:09-0500 Heart rate 95 /min Stephany Pelayo PA-C Work Phone: [facility] 05-15-2023 15:09-0500 SaO2% (BldA) [Mass fraction] 97 % Stephany Pelayo PA-C Work Phone: [facility] 05-15-2023 15:09-0500 Systolic blood pressure 138 mm[Hg] Stephany Pelayo PA-C Work Phone: [facility] 05-06-2023 11:40-0500 Diastolic blood pressure 102 mm[Hg] Stephany Pelayo PA-C Work Phone: [facility] 05-06-2023 11:40-0500 Systolic blood pressure 182 mm[Hg] Stephany Pelayo PA-C Work Phone: [facility] 05-06-2023 11:31-0500 Body mass index (BMI) [Ratio] 47.76 kg/m2 Stephany Pelayo PA-C Work Phone: [facility] 05-06-2023 11:31-0500 Body temperature 96.3 [degF] Stephany Pelayo PA-C Work Phone: [facility] 05-06-2023 11:31-0500 Body weight 118.43 kg Stephany Pelayo PA-C Work Phone: [facility] 05-06-2023 11:31-0500 Heart rate 94 /min Stephany Pelayo PA-C Work Phone: [facility] 05-06-2023 11:31-0500 SaO2% (BldA) [Mass fraction] 98 % Stephany Pelayo PA-C Work Phone: [facility] 04-15-2023 15:45-0500 Body temperature 97.81 [degF] Ama Wilcox RN [facility] 04-15-2023 15:45-0500 Diastolic blood pressure 108 mm[Hg] Ama Wilcox RN [facility] 04-15-2023 15:45-0500 Heart rate 72 /min Ama Wilcox RN [facility] 04-15-2023 15:45-0500 Respiratory rate 18 /min Ama Wilcox RN [facility] 04-15-2023 15:45-0500 SaO2% (BldA) [Mass fraction] 96 % Ama Wilcox RN [facility] 04-15-2023 15:45-0500 Systolic blood pressure 136 mm[Hg] Ama Wilcox RN [facility] 04-15-2023 15:14-0500 Body temperature 97.5 [degF] Keyla Jhonson [facility] 04-15-2023 15:14-0500 Diastolic blood pressure 108 mm[Hg] Keyla Johnson [facility] 04-15-2023 15:14-0500 Heart rate 87 /min Keyla Johnson [facility] 04-15-2023 15:14-0500 Respiratory rate 13 /min Keyla Johnson [facility] 04-15-2023 15:14-0500 SaO2% (BldA) [Mass fraction] 97 % Keyla Johnsno [facility] 04-15-2023 15:14-0500 Systolic blood pressure 136 mm[Hg] Keyla Johnson [facility] 04-14-2023 16:30-0500 Body temperature 98.1 [degF] Cece Colin [facility] 04-14-2023 16:30-0500 Diastolic blood pressure 77 mm[Hg] Cece Colin [facility] 04-14-2023 16:30-0500 Heart rate 90 /min Cece Colin [facility] 04-14-2023 16:30-0500 Respiratory rate 17 /min Cece Colin [facility] 04-14-2023 16:30-0500 SaO2% (BldA) [Mass fraction] 98 % Cece Colin [facility] 04-14-2023 16:30-0500 Systolic blood pressure 148 mm[Hg] Cece Colin [facility] 04-14-2023 09:33-0500 Body temperature 98.4 [degF] Nikko Pratt [facility] 04-14-2023 09:33-0500 Diastolic blood pressure 99 mm[Hg] Nikko Pratt [facility] 04-14-2023 09:33-0500 Heart rate 77 /min Nikko Pratt [facility] 04-14-2023 09:33-0500 Respiratory rate 17 /min Nikko Pratt [facility] 04-14-2023 09:33-0500 SaO2% (BldA) [Mass fraction] 96 % Nikko Pratt [facility] 04-14-2023 09:33-0500 Systolic blood pressure 160 mm[Hg] Nikko Pratt [employer]IVE [employer]INE TE[employer] [facility] 04-08-2023 12:04-0500 Body temperature 98.1 [degF] Lisa Padron PT [facility] 04-08-2023 12:04-0500 Diastolic blood pressure 74 mm[Hg] Lisa Padron PT [facility] 04-08-2023 12:04-0500 Heart rate 78 /min Lisa Padron PT [facility] 04-08-2023 12:04-0500 Respiratory rate 13 /min Lisa Padron PT [facility] 04-08-2023 12:04-0500 SaO2% (BldA) [Mass fraction] 99 % Lisa Padron PT [facility] 04-08-2023 12:04-0500 Systolic blood pressure 134 mm[Hg] Lisa Padron PT [facility] 04-08-2023 11:18-0500 Body temperature 98.71 [degF] Carlitos Carrera [facility] 04-08-2023 11:18-0500 Diastolic blood pressure 84 mm[Hg] Carlitos Carrera [facility] 04-08-2023 11:18-0500 Heart rate 76 /min Carlitos Carrera [facility] 04-08-2023 11:18-0500 Respiratory rate 16 /min Carlitos Carrera [facility] 04-08-2023 11:18-0500 SaO2% (BldA) [Mass fraction] 99 % Carlitos Carrera [facility] 04-08-2023 11:18-0500 Systolic blood pressure 126 mm[Hg] Carlitos Carrera [facility] 04-01-2023 00:00-0500 Body temperature 98.6 [degF] Kassidy Wick RN [facility] 04-01-2023 00:00-0500 Diastolic blood pressure 94 mm[Hg] Kassidy Wick RN [facility] 04-01-2023 00:00-0500 Heart rate 60 /min Kassidy Wick RN [facility] 04-01-2023 00:00-0500 Respiratory rate 16 /min Kassidy Wick RN [facility] 04-01-2023 00:00-0500 SaO2% (BldA) [Mass fraction] 100 % Kassidy Wick RN [facility] 04-01-2023 00:00-0500 Systolic blood pressure 142 mm[Hg] Kassidy Wick RN [facility] 03-30-2023 11:57-0500 Body temperature 97.81 [degF] Harshad Rizzo MD Work Phone: [facility] 03-30-2023 11:57-0500 Diastolic blood pressure 62 mm[Hg] Harshad Rizzo MD Work Phone: [facility] 03-30-2023 11:57-0500 Heart rate 65 /min Harshad Rizzo MD Work Phone: [facility] 03-30-2023 11:57-0500 SaO2% (BldA) [Mass fraction] 98 % Harshad Rizzo MD Work Phone: [facility] 03-30-2023 11:57-0500 Systolic blood pressure 97 mm[Hg] Harshad Rizzo MD Work Phone: [facility] 03-30-2023 07:23-0500 Respiratory rate 15 /min Harshad Rizzo MD Work Phone: [facility] 03-29-2023 14:38-0500 Body height 157.5 cm Harshad Rizzo MD Work Phone: [facility] 03-29-2023 14:38-0500 Body mass index (BMI) [Ratio] 46.81 kg/m2 Harshad Rizzo MD Work Phone: [facility] 03-29-2023 14:38-0500 Body weight 116.1 kg Harshad Rizzo MD Work Phone: [facility] 02-20-2023 08:00-0400 Respiratory rate 16 /min Harshad Rizzo MD Work Phone: [facility] 02-20-2023 07:36-0400 Body temperature 97.9 [degF] Harshad Rizzo MD Work Phone: [facility] 02-20-2023 07:36-0400 Diastolic blood pressure 78 mm[Hg] Harshad Rizzo MD Work Phone: [facility] 02-20-2023 07:36-0400 Heart rate 89 /min Harshad Rizzo MD Work Phone: [facility] 02-20-2023 07:36-0400 SaO2% (BldA) [Mass fraction] 99 % Harshad Rizzo MD Work Phone: [facility] 02-20-2023 07:36-0400 Systolic blood pressure 111 mm[Hg] Harshad Rizzo MD Work Phone: [facility] 02-20-2023 04:34-0400 Body mass index (BMI) [Ratio] 46.53 kg/m2 Harshad Rizzo MD Work Phone: [facility] 02-20-2023 04:34-0400 Body weight 115.4 kg Harshad Rizzo MD Work Phone: [facility] 02-18-2023 02:46-0400 Body height 157.5 cm Harshad Rizzo MD Work Phone: [facility] 02-09-2023 15:24-0400 Body height 157.5 cm Josué Mellis DO Work Phone: [facility] 02-09-2023 15:24-0400 Body mass index (BMI) [Ratio] 45.73 kg/m2 Josué Mellis DO Work Phone: [facility] 02-09-2023 15:24-0400 Body weight 113.4 kg Josué Mellis DO Work Phone: [facility] 10-07-2022 06:43-0400 Diastolic blood pressure 51 mm[Hg] Jocelyn Bowen MD Work Phone: [facility] 10-07-2022 06:43-0400 Heart rate 62 /min Jocelyn Bowen MD Work Phone: [facility] 10-07-2022 06:43-0400 SaO2% (BldA) [Mass fraction] 96 % Jocelyn Bowen MD Work Phone: [facility] 10-07-2022 06:43-0400 Systolic blood pressure 99 mm[Hg] Jocelyn Bowen MD Work Phone: [facility] 10-06-2022 19:48-0400 Body temperature 97.59 [degF] Jocelyn Bowen MD Work Phone: [facility] 10-06-2022 19:48-0400 Respiratory rate 17 /min Jocelyn Bowen MD Work Phone: [facility] 10-06-2022 18:21-0400 Diastolic blood pressure 118 mm[Hg] Preston Jonese [facility] 10-06-2022 18:21-0400 Heart rate 109 /min Preston Charli [facility] 10-06-2022 18:21-0400 Mean blood pressure 129 mm[Hg] Preston Charli [facility] 10-06-2022 18:21-0400 Respiratory rate 18 /min Preston Charli [facility] 10-06-2022 18:21-0400 SaO2% (BldA) [Mass fraction] 99 % Preston Charli [facility] 10-06-2022 18:21-0400 Systolic blood pressure 152 mm[Hg] Preston Charli [facility] 10-06-2022 17:00-0400 Diastolic blood pressure 113 mm[Hg] Preston Charli [facility] 10-06-2022 17:00-0400 Heart rate 106 /min Preston Jonese [facility] 10-06-2022 17:00-0400 Mean blood pressure 126 mm[Hg] Preston Charli [facility] 10-06-2022 17:00-0400 Respiratory rate 16 /min Preston Jonese [facility] 10-06-2022 17:00-0400 SaO2% (BldA) [Mass fraction] 97 % Preston Charli [facility] 05-15-2023 16:00-0400 Diastolic blood pressure 100 mm[Hg] Preston Lugo [facility] 10-06-2022 16:00-0400 Mean blood pressure 109 mm[Hg] Preston Lugo [facility] 10-06-2022 16:00-0400 SaO2% (BldA) [Mass fraction] 100 % Preston Lugo [facility] 10-06-2022 16:00-0400 Systolic blood pressure 126 mm[Hg] Preston Lugo [facility] 10-06-2022 14:26-0400 Body temperature 98.24 [degF] Preston Lugo [facility] 10-06-2022 14:26-0400 Heart rate 112 /min Preston Lugo [facility] 09-15-2022 15:00-0400 Hourly Rounding Pepe Kinza [facility] 09-15-2022 15:00-0400 Promise to Return Pepe Kinza [facility] 09-15-2022 14:00-0400 Hourly Rounding Pepe Kinza [facility] 09-15-2022 14:00-0400 Promise to Return Pepe Kinza [facility] 09-15-2022 13:00-0400 Hourly Rounding Pepe Kinza [facility] 09-15-2022 13:00-0400 Promise to Return Pepe Kinza [facility] 09-15-2022 12:00-0400 Blood Pressure Location Pepe Kinza [facility] 09-15-2022 12:00-0400 Body temperature 98.06 [degF] Pepe Kinza [facility] 09-15-2022 12:00-0400 Diastolic blood pressure 80 mm[Hg] Pepe Kinza [facility] 09-15-2022 12:00-0400 Heart rate 59 /min Pepe Kinza [facility] 09-15-2022 12:00-0400 Mean blood pressure 94 mm[Hg] Pepe Kinza [facility] 09-15-2022 12:00-0400 Respiratory rate 16 /min Pepe Kinza [facility] 09-15-2022 12:00-0400 SaO2% (BldA) [Mass fraction] 96 % Pepe Kinza [facility] 09-15-2022 12:00-0400 Systolic blood pressure 122 mm[Hg] Pepe Kinza [facility] 09-15-2022 08:35-0400 Diastolic blood pressure 81 mm[Hg] Pepe Kinza [facility] 09-15-2022 08:35-0400 Heart rate 72 /min Pepe Kinza [facility] 09-15-2022 08:35-0400 Systolic blood pressure 170 mm[Hg] Pepe Kinza [facility] 09-15-2022 08:00-0400 Heart rate 68 /min Pepe Kinza [facility] 09-15-2022 08:00-0400 Mean blood pressure 111 mm[Hg] Pepe Kinza [facility] 09-15-2022 08:00-0400 SaO2% (BldA) [Mass fraction] 94 % Pepe Kinza [facility] 09-15-2022 01:00-0400 Body temperature 97.88 [degF] Pepe Kinza [facility] 09-15-2022 01:00-0400 Heart rate 61 /min Pepe Kinza [facility] 09-15-2022 01:00-0400 SaO2% (BldA) [Mass fraction] 96 % Pepe Kinza [facility] 09-14-2022 16:00-0400 Blood Pressure Location Pepe Kinza [facility] 09-14-2022 16:00-0400 Heart rate 94 /min Pepe Kinza [facility] 09-14-2022 16:00-0400 Mean blood pressure 135 mm[Hg] Pepe Kinza [facility] 09-14-2022 12:00-0400 Heart rate 106 /min Pepe Kinza [facility] 09-14-2022 07:00-0400 Heart rate 90 /min Pepe Kinza [facility] 09-13-2022 23:58-0400 Heart rate 91 /min Pepe Kinza [facility] 09-13-2022 21:01-0400 Heart rate 92 /min Pepe Kinza [facility] 09-13-2022 16:08-0400 gluc 132 mg/dL Pepe Kinza [facility] 09-13-2022 12:30-0400 gluc 85 mg/dL Pepe Kinza [facility] 09-13-2022 07:21-0400 gluc 122 mg/dL Pepe Kinza [facility] 09-12-2022 19:20-0400 Mean blood pressure 114 mm[Hg] Pepe Clearyer [facility] 09-12-2022 16:45-0400 Respiratory rate 18 /min Pepe Clearyer [facility] 09-12-2022 07:12-0400 Body height 157.48 cm FINANCIAL RECORDING CLERK-C Kip Soviak Work Phone: [facility] 09-12-2022 07:12-0400 Body temperature 98 [degF] FINANCIAL RECORDING CLERK-C Kip Soviak Work Phone: [facility] 09-12-2022 07:12-0400 Body weight 113.39 kg FINANCIAL RECORDING CLERK-C Kip Soviak Work Phone: [facility] 09-12-2022 07:12-0400 Diastolic blood pressure 98 mm[Hg] FINANCIAL RECORDING CLERK-C Kip Soviak Work Phone: [facility] 09-12-2022 07:12-0400 Heart rate 98 /min FINANCIAL RECORDING CLERK-C Kip Soviak Work Phone: [facility] 09-12-2022 07:12-0400 Respiratory rate 16 /min FINANCIAL RECORDING CLERK-C Kip Soviak Work Phone: [facility] 09-12-2022 07:12-0400 SaO2% (BldA) [Mass fraction] 97 % FINANCIAL RECORDING CLERK-C Kip Soviak Work Phone: [facility] 09-12-2022 07:12-0400 Systolic blood pressure 144 mm[Hg] FINANCIAL RECORDING CLERK-C Kip Soviak Work Phone: [facility] 08-22-2022 14:55-0400 Body temperature 98.2 [degF] FINANCIAL RECORDING CLERK-C Kip Soviak Work Phone: [facility] 08-22-2022 14:55-0400 Diastolic blood pressure 90 mm[Hg] FINANCIAL RECORDING CLERK-C Kip Soviak Work Phone: [facility] 08-22-2022 14:55-0400 Heart rate 77 /min FINANCIAL RECORDING CLERK-C Kip Soviak Work Phone: [facility] 08-22-2022 14:55-0400 Respiratory rate 20 /min FINANCIAL RECORDING CLERK-C Kip Soviak Work Phone: [facility] 08-22-2022 14:55-0400 SaO2% (BldA) [Mass fraction] 96 % FINANCIAL RECORDING CLERK-C Kip Soviak Work Phone: [facility] 08-22-2022 14:55-0400 Systolic blood pressure 144 mm[Hg] FINANCIAL RECORDING CLERK-C Kip Soviak Work Phone: [facility] 08-22-2022 06:00-0400 Body weight 118 kg FINANCIAL RECORDING CLERK-C Kip Soviak Work Phone: [facility] 08-20-2022 16:45-0400 Body height 157.48 cm FINANCIAL RECORDING CLERK-C Kip Soviak Work Phone: [facility] 08-20-2022 02:34-0400 Diastolic blood pressure 96 mm[Hg] FINANCIAL RECORDING CLERK-C Kip Soviak Work Phone: [facility] 08-20-2022 02:34-0400 Heart rate 72 /min FINANCIAL RECORDING CLERK-C Kip Soviak Work Phone: [facility] 08-20-2022 02:34-0400 Respiratory rate 18 /min FINANCIAL RECORDING CLERK-C Kip Soviak Work Phone: [facility] 08-20-2022 02:34-0400 SaO2% (BldA) [Mass fraction] 100 % FINANCIAL RECORDING CLERK-C Kip Soviak Work Phone: [facility] 08-20-2022 02:34-0400 Systolic blood pressure 194 mm[Hg] FINANCIAL RECORDING CLERK-C Kip Soviak Work Phone: [facility] 08-19-2022 21:42-0400 Body height 157.48 cm FINANCIAL RECORDING CLERK-C Kip Soviak Work Phone: [facility] 08-19-2022 21:42-0400 Body temperature 97.6 [degF] FINANCIAL RECORDING CLERK-C Laurent Soviak Work Phone: [facility] 08-19-2022 21:42-0400 Body weight 114.1 kg FINANCIAL RECORDING CLERK-C Laurent Soviak Work Phone: [facility] 08-19-2022 20:27-0400 Diastolic blood pressure 136 mm[Hg] Santos Velez [facility] 08-19-2022 20:27-0400 Heart rate 104 /min Santos Velez [facility] 08-19-2022 20:27-0400 Mean blood pressure 154 mm[Hg] Santos Velez [facility] 08-19-2022 20:27-0400 Respiratory rate 23 /min Santos Velez [facility] 08-19-2022 20:27-0400 SaO2% (BldA) [Mass fraction] 97 % Santos Velez [facility] 08-19-2022 20:27-0400 Systolic blood pressure 189 mm[Hg] Santos Velez [facility] 08-19-2022 18:00-0400 Diastolic blood pressure 98 mm[Hg] Santos Velez [facility] 08-19-2022 18:00-0400 Respiratory rate 18 /min Santos Veelz [facility] 08-19-2022 18:00-0400 Systolic blood pressure 164 mm[Hg] Santos Velez [facility] 08-19-2022 17:04-0400 Body temperature 97.7 [degF] Santos Velez [facility] 08-19-2022 17:04-0400 Diastolic blood pressure 124 mm[Hg] Santos Velez [facility] 08-19-2022 17:04-0400 Heart rate 108 /min Santos Velez [facility] 08-19-2022 17:04-0400 Respiratory rate 16 /min Santos Velez [facility] 08-19-2022 17:04-0400 SaO2% (BldA) [Mass fraction] 98 % Santos Velez [facility] 08-19-2022 17:04-0400 Systolic blood pressure 183 mm[Hg] Santos Velez [facility] 06-02-2022 20:00-0500 Diastolic blood pressure 88 mm[Hg] [facility] 06-02-2022 20:00-0500 Heart rate 92 /min [facility] 06-02-2022 20:00-0500 Mean blood pressure 109 mm[Hg] [facility] 06-02-2022 20:00-0500 Respiratory rate 17 /min [facility] 06-02-2022 20:00-0500 SaO2% (BldA) [Mass fraction] 100 % [facility] 06-02-2022 20:00-0500 Systolic blood pressure 150 mm[Hg] [facility] 06-02-2022 19:00-0500 Diastolic blood pressure 95 mm[Hg] [facility] 06-02-2022 19:00-0500 Heart rate 97 /min [facility] 06-02-2022 19:00-0500 Mean blood pressure 115 mm[Hg] [facility] 06-02-2022 19:00-0500 SaO2% (BldA) [Mass fraction] 99 % [facility] 06-02-2022 19:00-0500 Systolic blood pressure 154 mm[Hg] [facility] 06-02-2022 18:00-0500 Diastolic blood pressure 94 mm[Hg] [facility] 06-02-2022 18:00-0500 Heart rate 96 /min [facility] 06-02-2022 18:00-0500 Mean blood pressure 122 mm[Hg] [facility] 06-02-2022 18:00-0500 SaO2% (BldA) [Mass fraction] 98 % [facility] 06-02-2022 18:00-0500 Systolic blood pressure 178 mm[Hg] [facility] 06-02-2022 15:50-0500 Body temperature 97.7 [degF] [facility] 06-02-2022 15:50-0500 Heart rate 100 /min [facility] 06-02-2022 15:50-0500 Respiratory rate 18 /min [facility] 05-15-2022 16:18-0500 Body temperature 98.24 [degF] Santos Velez [facility] 05-15-2022 16:18-0500 Diastolic blood pressure 85 mm[Hg] Santos Velez [facility] 05-15-2022 16:18-0500 Heart rate 99 /min Santos Velez [facility] 05-15-2022 16:18-0500 Respiratory rate 18 /min Santos Velez [facility] 05-15-2022 16:18-0500 SaO2% (BldA) [Mass fraction] 97 % Santos Velez [facility] 05-15-2022 16:18-0500 Systolic blood pressure 135 mm[Hg] Santos Velez [facility] 04-09-2022 10:00-0500 Hourly Rounding Ashutosh SAILAJA [facility] 04-09-2022 10:00-0500 Promise to Return Ashutosh SAILAJA [facility] 04-09-2022 09:00-0500 Hourly Rounding Ashutosh SAILAJA [facility] 04-09-2022 09:00-0500 Promise to Return Ashutosh SAILAJA [facility] 04-09-2022 08:51-0500 Diastolic blood pressure 64 mm[Hg] Ashutosh SAILAJA [facility] 04-09-2022 08:51-0500 Systolic blood pressure 91 mm[Hg] Ashutosh SAILAJA [facility] 04-09-2022 08:19-0500 Heart rate 63 /min Ashutosh SAILAJA [facility] 04-09-2022 08:19-0500 Respiratory rate 18 /min Ashutosh SAILAJA [facility] 04-09-2022 08:14-0500 Heart rate 61 /min Ashutosh SAILAJA [facility] 04-09-2022 08:14-0500 Respiratory rate 18 /min Ashutosh SAILAJA [facility] 04-09-2022 08:03-0500 Blood Pressure Location Ashutosh SAILAJA [facility] 04-09-2022 08:03-0500 Body temperature 97.52 [degF] Ashutosh SAILAJA [facility] 04-09-2022 08:03-0500 BP/Pulse Patient Position Ashutoshnickie MORELOSSLIN [facility] 04-09-2022 08:03-0500 Diastolic blood pressure 64 mm[Hg] Ashutosh SAILAJA [facility] 04-09-2022 08:03-0500 Heart rate 62 /min Ashutosh SAILAJA [facility] 04-09-2022 08:03-0500 Mean blood pressure 73 mm[Hg] Ashutosh SAILAJA [facility] 04-09-2022 08:03-0500 Respiratory rate 18 /min Ashutosh SAILAJA [facility] 04-09-2022 08:03-0500 SaO2% (BldA) [Mass fraction] 96 % Ashutoshnickie MORELOSSLIN [facility] 04-09-2022 08:03-0500 Systolic blood pressure 91 mm[Hg] Ashutosh SAILAJA [facility] 04-09-2022 08:00-0500 Hourly Rounding Ashutoshnickie MORELOSSLIN [facility] 04-09-2022 08:00-0500 Promise to Return Ashutoshnickie MORELOSSLIN [facility] 04-09-2022 04:30-0500 Blood Pressure Location Ashutosh SAILAJA [facility] 04-09-2022 04:30-0500 Body temperature 96.8 [degF] Ashutosh SAILAJA [facility] 04-09-2022 04:30-0500 BP/Pulse Patient Position Ashutosh SAILAJA [facility] 04-09-2022 04:30-0500 Diastolic blood pressure 76 mm[Hg] Ashutosh SAILAJA [facility] 04-09-2022 04:30-0500 SaO2% (BldA) [Mass fraction] 95 % Ashutosh MORELOSSLIN [facility] 04-09-2022 04:30-0500 Systolic blood pressure 109 mm[Hg] Ashutosh BENSONLIN [facility] 04-08-2022 22:36-0500 Blood Pressure Location Ashutosh MENARD [facility] 04-08-2022 22:36-0500 Body temperature 97.16 [degF] Ashutosh MORELOSSLIN [facility] 04-08-2022 22:36-0500 BP/Pulse Patient Position Ashutosh MENARD [facility] 04-08-2022 22:36-0500 Mean blood pressure 91 mm[Hg] Ashutosh MENARD [facility] 04-08-2022 22:36-0500 SaO2% (BldA) [Mass fraction] 97 % Ashutosh MENARD [facility] 04-08-2022 20:27-0500 Body temperature 97.7 [degF] Ashutosh MENARD [facility] 04-08-2022 20:27-0500 Mean blood pressure 97 mm[Hg] Ashutoshnickie MORELOSSLIN [facility] 04-08-2022 16:55-0500 Mean blood pressure 66 mm[Hg] Ashutosh MOREOLSSLIN [facility] 04-08-2022 12:18-0500 gluc 133 mg/dL Ashutoshnickie MORELOSSLIN [facility] 04-08-2022 11:39-0500 Body temperature 98.06 [degF] Ashutosh SAILAJA [facility] 04-08-2022 04:35-0500 Mean blood pressure 73 mm[Hg] Ashutosh SAILAJA [facility] 04-08-2022 04:00-0500 gluc 124 mg/dL Ashutosh SAILAJA [facility] 04-08-2022 01:00-0500 Mean blood pressure 70 mm[Hg] Ashutosh SAILAJA [facility] 04-07-2022 16:28-0500 gluc 383 mg/dL Ashutosh SAILAJA [facility] 04-07-2022 07:00-0500 Heart rate 80 /min Ashutosh SAILAJA [facility] 04-07-2022 03:54-0500 Heart rate 95 /min Ashutosh SAILAJA [facility] 04-07-2022 03:02-0500 Diastolic Blood Pressure Invasive 103 mm[Hg] Ashutosh SAILAJA [facility] 04-07-2022 03:02-0500 Heart rate 95 /min Ashutosh SAILAJA [facility] 04-07-2022 03:02-0500 Mean blood pressure 120 mm[Hg] Ashutosh SAILAJA [facility] 04-07-2022 03:02-0500 Respiratory rate 18 /min Ashutosh SAILAJA [facility] 04-07-2022 03:02-0500 Systolic blood pressure 153 mm[Hg] Ashutosh SAILAJA [facility] 04-07-2022 02:28-0500 Diastolic Blood Pressure Invasive 107 mm[Hg] Ashutosh SAILAJA [facility] 04-07-2022 02:28-0500 Mean blood pressure 119 mm[Hg] Ashutosh BENSONLIN [facility] 04-07-2022 02:28-0500 Respiratory rate 12 /min Ashutosh MENARD [facility] 04-07-2022 02:28-0500 Systolic blood pressure 143 mm[Hg] Ashutosh MENARD [facility] 04-07-2022 01:05-0500 Diastolic Blood Pressure Invasive 98 mm[Hg] Ashutosh MENARD [facility] 04-07-2022 01:05-0500 Mean blood pressure 111 mm[Hg] Ashutosh MENARD [facility] 04-07-2022 01:05-0500 Respiratory rate 17 /min Ashutosh MENARD [facility] 04-07-2022 01:05-0500 Systolic blood pressure 138 mm[Hg] Ashutosh MENARD [facility] 02-27-2022 17:30-0400 Diastolic blood pressure 93 mm[Hg] Gui Gilmar [facility] 02-27-2022 17:30-0400 Heart rate 100 /min Gui Gilmar [facility] 02-27-2022 17:30-0400 Mean blood pressure 103 mm[Hg] Gui Gilmar [facility] 02-27-2022 17:30-0400 Respiratory rate 13 /min Gui Gilmar [facility] 02-27-2022 17:30-0400 SaO2% (BldA) [Mass fraction] 99 % Gui Gilmar [facility] 02-27-2022 17:30-0400 Systolic blood pressure 124 mm[Hg] Gui Gilmar [facility] 02-27-2022 17:00-0400 Diastolic blood pressure 148 mm[Hg] Gui Gilmar [facility] 02-27-2022 17:00-0400 Heart rate 92 /min Gui Gilmar [facility] 02-27-2022 17:00-0400 Mean blood pressure 151 mm[Hg] Gui Gilmar [facility] 02-27-2022 17:00-0400 SaO2% (BldA) [Mass fraction] 98 % Gui Gilmar [facility] 02-27-2022 17:00-0400 Systolic blood pressure 158 mm[Hg] Gui Gilmar [facility] 02-27-2022 16:30-0400 Diastolic blood pressure 112 mm[Hg] Gui Gilmar [facility] 02-27-2022 16:30-0400 Heart rate 96 /min Gui Gilmar [facility] 02-27-2022 16:30-0400 Mean blood pressure 130 mm[Hg] Gui Gilmar [facility] 02-27-2022 16:30-0400 Respiratory rate 24 /min Gui Gilmar [facility] 02-27-2022 16:30-0400 SaO2% (BldA) [Mass fraction] 97 % Gui Gilmar [facility] 02-27-2022 16:30-0400 Systolic blood pressure 167 mm[Hg] Gui Gilmar [facility] 02-27-2022 12:31-0400 gluc 256 mg/dL Gui Gilmar [facility] 02-27-2022 12:31-0400 gluc Gui Schafer [facility] 02-27-2022 11:57-0400 Body temperature 97.88 [degF] Gui Gilmar [facility] 02-27-2022 11:57-0400 Heart rate 99 /min Gui Gilmar [facility] 02-27-2022 11:57-0400 Respiratory rate 18 /min Gui Gilmar [facility] 02-21-2022 14:53-0400 Body temperature 98.24 [degF] Santos Velez [facility] 02-21-2022 14:53-0400 Diastolic blood pressure 110 mm[Hg] Santos Agustin [facility] 02-21-2022 14:53-0400 Heart rate 100 /min Santos Velez [facility] 02-21-2022 14:53-0400 Respiratory rate 18 /min Santos Velez [facility] 02-21-2022 14:53-0400 SaO2% (BldA) [Mass fraction] 97 % Santos Agustin [facility] 02-21-2022 14:53-0400 Systolic blood pressure 177 mm[Hg] Santos Agustin [facility] 01-24-2022 14:21-0400 Diastolic blood pressure 101 mm[Hg] Preston Lugo [facility] 01-24-2022 14:21-0400 Heart rate 89 /min Preston Lugo [facility] 01-24-2022 14:21-0400 Mean blood pressure 113 mm[Hg] Preston Lugo [facility] 01-24-2022 14:21-0400 Respiratory rate 16 /min Preston Jonese [facility] 01-24-2022 14:21-0400 SaO2% (BldA) [Mass fraction] 99 % Preston Charli [facility] 01-24-2022 14:21-0400 Systolic blood pressure 136 mm[Hg] Preston Charli [facility] 01-24-2022 12:55-0400 Diastolic blood pressure 100 mm[Hg] Preston Charli [facility] 01-24-2022 12:55-0400 Heart rate 87 /min Preston Charli [facility] 01-24-2022 12:55-0400 Mean blood pressure 112 mm[Hg] Preston Charli [facility] 01-24-2022 12:55-0400 Respiratory rate 16 /min Preston Charli [facility] 01-24-2022 12:55-0400 SaO2% (BldA) [Mass fraction] 99 % Preston Charli [facility] 01-24-2022 12:55-0400 Systolic blood pressure 137 mm[Hg] Preston Charli [facility] 01-24-2022 12:30-0400 Hourly Rounding Preston Jonese [facility] 01-24-2022 12:30-0400 Promise to Return Preston Jonese [facility] 01-24-2022 10:46-0400 Body temperature 98.78 [degF] Preston Charli [facility] 01-24-2022 10:46-0400 Diastolic blood pressure 86 mm[Hg] Preston Charli [facility] 01-24-2022 10:46-0400 Heart rate 89 /min Preston Lugo [facility] 01-24-2022 10:46-0400 Mean blood pressure 100 mm[Hg] Preston Lugo [facility] 01-24-2022 10:46-0400 Respiratory rate 18 /min Preston Lugo [facility] 01-24-2022 10:46-0400 SaO2% (BldA) [Mass fraction] 99 % Preston Lugo [facility] 01-24-2022 10:46-0400 Systolic blood pressure 129 mm[Hg] Preston Lugo [facility] 01-09-2022 22:00-0400 Hourly Rounding [facility] 01-09-2022 22:00-0400 Promise to Return [facility] 01-09-2022 21:47-0400 Hourly Rounding [facility] 01-09-2022 21:47-0400 Promise to Return [facility] 01-09-2022 20:00-0400 Hourly Rounding [facility] 01-09-2022 20:00-0400 Promise to Return [facility] 01-09-2022 18:00-0400 Diastolic blood pressure 98 mm[Hg] [facility] 01-09-2022 18:00-0400 Heart rate 94 /min [facility] 01-09-2022 18:00-0400 Mean blood pressure 115 mm[Hg] [facility] 01-09-2022 18:00-0400 SaO2% (BldA) [Mass fraction] 98 % [facility] 01-09-2022 18:00-0400 Systolic blood pressure 149 mm[Hg] [facility] 01-09-2022 15:38-0400 Body temperature 98.78 [degF] [facility] 01-09-2022 15:38-0400 Diastolic blood pressure 129 mm[Hg] [facility] 01-09-2022 15:38-0400 Heart rate 92 /min [facility] 01-09-2022 15:38-0400 SaO2% (BldA) [Mass fraction] 99 % [facility] 01-09-2022 15:38-0400 Systolic blood pressure 168 mm[Hg] [facility] 01-09-2022 15:32-0400 SaO2% (BldA) [Mass fraction] 99 % [facility] 01-09-2022 15:28-0400 Blood Pressure Location [facility] 01-09-2022 15:28-0400 BP/Pulse Patient Position [facility] 01-09-2022 15:28-0400 Diastolic blood pressure 129 mm[Hg] [facility] 01-09-2022 15:28-0400 Heart rate 92 /min [facility] 01-09-2022 15:28-0400 Mean blood pressure 142 mm[Hg] [facility] 01-09-2022 15:28-0400 Systolic blood pressure 168 mm[Hg] [facility] 01-09-2022 14:56-0400 Heart rate 93 /min [facility] 01-09-2022 14:56-0400 Mean blood pressure 133 mm[Hg] [facility] 01-09-2022 14:56-0400 Respiratory rate 16 /min [facility] 01-09-2022 14:15-0400 Respiratory rate 18 /min [facility] 01-09-2022 14:00-0400 Mean blood pressure 158 mm[Hg] [facility] 01-09-2022 13:20-0400 Heart rate 97 /min [facility] 01-09-2022 12:45-0400 Heart rate 102 /min [facility] 01-09-2022 12:15-0400 Body temperature 97.88 [degF] [facility] 01-09-2022 12:15-0400 Respiratory rate 20 /min [facility] 12-12-2021 16:48-0400 Blood Pressure Location Breannaafia Herediaell [facility] 12-12-2021 16:48-0400 Body temperature 98.06 [degF] Breanna Herediaell [facility] 12-12-2021 16:48-0400 Diastolic blood pressure 82 mm[Hg] Breanna Gu [facility] 12-12-2021 16:48-0400 Heart rate 100 /min Breannaafia Herediaell [facility] 12-12-2021 16:48-0400 SaO2% (BldA) [Mass fraction] 97 % Breannaafia Herediaell [facility] 12-12-2021 16:48-0400 Systolic blood pressure 136 mm[Hg] Breanna Gu [facility] 12-08-2021 15:56-0400 Diastolic blood pressure 75 mm[Hg] Antoine Sosa MD Work Phone: [facility] [employer] 12-08-2021 15:56-0400 Heart rate 100 /min Antoine Sosa MD [facility] 12-08-2021 15:56-0400 Respiratory rate 16 /min Antoine Sosa MD Work Phone: [facility] 12-08-2021 15:56-0400 SaO2% (BldA) [Mass fraction] 98 % Antoine Sosa MD Work Phone[facility] 12-08-2021 15:56-0400 Systolic blood pressure 104 mm[Hg] Antoine Sosa MD Work Phone[facility] 12-08-2021 15:19-0400 Body height 157.5 cm Antoine Sosa MD Work Phone[facility] 12-08-2021 15:19-0400 Body mass index (BMI) [Ratio] 45.73 kg/m2 Antoine Sosa MD Work Phone[facility] 12-08-2021 15:19-0400 Body temperature 98.6 [degF] Antoine Sosa MD Work Phone: [facility] 12-08-2021 15:19-0400 Body weight 113.4 kg Antoine Sosa MD Work Phone: [facility] 12-08-2021 12:44-0400 Diastolic blood pressure 108 mm[Hg] Santos Moreno [facility] 12-08-2021 12:44-0400 Heart rate 99 /min Santos Josh [facility] 12-08-2021 12:44-0400 Mean blood pressure 127 mm[Hg] Santos Moreno [facility] 12-08-2021 12:44-0400 Respiratory rate 17 /min Santos Moreno [facility] 12-08-2021 12:44-0400 SaO2% (BldA) [Mass fraction] 98 % Santos Moreno [facility] 12-08-2021 12:44-0400 Systolic blood pressure 166 mm[Hg] Santos Josh [facility] 12-08-2021 12:20-0400 Diastolic blood pressure 83 mm[Hg] Santos Josh [facility] 12-08-2021 12:20-0400 Heart rate 88 /min Santos Josh [facility] 12-08-2021 12:20-0400 Mean blood pressure 93 mm[Hg] Santos Josh [facility] 12-08-2021 12:20-0400 Respiratory rate 17 /min Santos Josh [facility] 12-08-2021 12:20-0400 Respiratory rate 18 /min Santos Josh [facility] 12-08-2021 12:20-0400 SaO2% (BldA) [Mass fraction] 99 % Santos Josh [facility] 12-08-2021 12:20-0400 Systolic blood pressure 114 mm[Hg] Santos Josh [facility] 12-08-2021 11:41-0400 Diastolic blood pressure 87 mm[Hg] Santos Josh [facility] 12-08-2021 11:41-0400 Heart rate 89 /min Santos Josh [facility] 12-08-2021 11:41-0400 Mean blood pressure 99 mm[Hg] Santos Josh [facility] 12-08-2021 11:41-0400 Respiratory rate 18 /min Santos Josh [facility] 12-08-2021 11:41-0400 SaO2% (BldA) [Mass fraction] 99 % Santos Moreno [facility] 12-08-2021 11:41-0400 Systolic blood pressure 122 mm[Hg] Santos Moreno [facility] 12-08-2021 10:01-0400 Body temperature 97.7 [degF] Santos Moreno [facility] 12-08-2021 10:01-0400 Heart rate 101 /min Santos Moreno [facility] 12-08-2021 10:01-0400 Respiratory rate 18 /min Santos Moreno [facility] 11-06-2021 13:03-0400 Hourly Rounding [facility] 11-06-2021 13:03-0400 Promise to Return [facility] 11-06-2021 12:05-0400 Hourly Rounding [facility] 11-06-2021 12:05-0400 [facility] 11-06-2021 11:05-0400 [facility] 11-06-2021 11:05-0400 [facility] 11-06-2021 11:00-0400 Diastolic blood pressure 72 mm[Hg] [facility] 11-06-2021 11:00-0400 Heart rate 72 /min [facility] 11-06-2021 11:00-0400 SaO2% (BldA) [Mass fraction] 98 % [facility] 11-06-2021 11:00-0400 Systolic blood pressure 142 mm[Hg] [facility] 11-06-2021 08:04-0400 Body temperature 98.06 [degF] [facility] 11-06-2021 08:04-0400 Diastolic blood pressure 97 mm[Hg] [facility] 11-06-2021 08:04-0400 Heart rate 94 /min [facility] 11-06-2021 08:04-0400 Mean blood pressure 122 mm[Hg] [facility] 11-06-2021 08:04-0400 SaO2% (BldA) [Mass fraction] 99 % [facility] 11-06-2021 08:04-0400 Systolic blood pressure 171 mm[Hg] [facility] 11-06-2021 08:00-0400 Blood Pressure Location [facility] 11-06-2021 08:00-0400 BP/Pulse Patient Position [facility] 11-05-2021 23:33-0400 FIO2 21 % [facility] 11-05-2021 23:33-0400 Heart rate 60 /min [facility] 11-05-2021 23:33-0400 Respiratory rate 12 /min [facility] 11-05-2021 23:33-0400 SaO2% (BldA) [Mass fraction] 97 % [facility] 11-05-2021 23:00-0400 Body temperature 97.88 [degF] [facility] 11-05-2021 23:00-0400 Diastolic blood pressure 66 mm[Hg] [facility] 11-05-2021 23:00-0400 Systolic blood pressure 94 mm[Hg] [facility] 11-05-2021 20:41-0400 Mean blood pressure 109 mm[Hg] [facility] 11-05-2021 20:23-0400 Respiratory rate 18 /[facility]-05-2021 15:53-0400 Blood [facility] 11-05-2021 15:53-0400 BP/Pulse [facility] 11-05-2021 15:53-0400 Mean blood pressure 105 mm[Hg] [facility] 11-05-2021 14:57-0400 Heart rate 104 /min [facility] 11-05-2021 11:08-0400 Blood Pressure [facility] 11-05-2021 11:08-0400 BP/Pulse [facility] 11-05-2021 00:25-0400 Heart rate 65 /min [facility] 11-05-2021 00:25-0400 Mean blood pressure 59 mm[Hg] [facility] 11-04-2021 19:15-0400 Mean blood pressure 104 mm[Hg] [facility] 11-04-2021 18:49-0400 Heart rate 112 /min [facility] 11-04-2021 17:44-0400 Mean blood pressure 91 mm[Hg] [facility] 10-09-2021 17:57-0400 Diastolic blood pressure 87 mm[Hg] Santos Velez [facility] 10-09-2021 17:57-0400 Heart rate 102 /min Santos Velez [facility] 10-09-2021 17:57-0400 Mean blood pressure 105 mm[Hg] Santos Velez [facility] 10-09-2021 17:57-0400 Respiratory rate 16 /min Santos Velez [facility] 10-09-2021 17:57-0400 SaO2% (BldA) [Mass fraction] 97 % Santos Agustin [facility] 10-09-2021 17:57-0400 Systolic blood pressure 141 mm[Hg] Santos Agustin [facility] 10-09-2021 17:40-0400 Hourly Rounding Santos Agustin [facility] 10-09-2021 17:40-0400 Promise to Return Santos Agustin [facility] 10-09-2021 17:38-0400 Diastolic blood pressure 88 mm[Hg] Santos Agustin [facility] 10-09-2021 17:38-0400 Heart rate 104 /min Santos Agustin [facility] 10-09-2021 17:38-0400 Mean blood pressure 105 mm[Hg] Santos Agustin [facility] 10-09-2021 17:38-0400 Respiratory rate 16 /min Santos Agustin [facility] 10-09-2021 17:38-0400 SaO2% (BldA) [Mass fraction] 96 % Santos Agustin [facility] 10-09-2021 17:38-0400 Systolic blood pressure 140 mm[Hg] Santos Agustin [facility] 10-09-2021 16:10-0400 Diastolic blood pressure 75 mm[Hg] Santos Agustin [facility] 10-09-2021 16:10-0400 Heart rate 107 /min Santos Agustin [facility] 10-09-2021 16:10-0400 Hourly Rounding Santos Agustin [facility] 10-09-2021 16:10-0400 Mean blood pressure 97 mm[Hg] Santos Velez [facility] 10-09-2021 16:10-0400 Promise to Return Santos Velez [facility] 10-09-2021 16:10-0400 Respiratory rate 16 /min Santos Velez [facility] 10-09-2021 16:10-0400 SaO2% (BldA) [Mass fraction] 96 % Santos Velez [facility] 10-09-2021 16:10-0400 Systolic blood pressure 141 mm[Hg] Santos Velez [facility] 10-09-2021 15:29-0400 Body temperature 98.6 [degF] Santos Velez [facility] 10-09-2021 15:29-0400 Heart rate 109 /min Santos Velez [facility] 09-30-2021 13:53-0400 Blood Pressure Location Breanna Herediaell [facility] 09-30-2021 13:53-0400 Body temperature 97.7 [degF] Breanna Gu [facility] 09-30-2021 13:53-0400 Diastolic blood pressure 70 mm[Hg] Breanna Gu [facility] 09-30-2021 13:53-0400 Heart rate 72 /min Breanna Gu [facility] 09-30-2021 13:53-0400 SaO2% (BldA) [Mass fraction] 98 % Breanna Gu [facility] 09-30-2021 13:53-0400 Systolic blood pressure 122 mm[Hg] Breanna Gu [facility] 09-02-2021 14:55-0400 Blood Pressure Location Kirk Abbott [facility] 09-02-2021 14:55-0400 Diastolic blood pressure 76 mm[Hg] Kirk Woodallofferson [facility] 09-02-2021 14:55-0400 Heart rate 67 /min Kirk Christofferson [facility] 09-02-2021 14:55-0400 Respiratory rate 18 /min Kirk Woodallofferson [facility] 09-02-2021 14:55-0400 SaO2% (BldA) [Mass fraction] 100 % Kirk Jose Coffisak [facility] 09-02-2021 14:55-0400 Systolic blood pressure 109 mm[Hg] Kirk Abbott [facility] 06-14-2021 19:00-0500 Body height 157.48 cm Herlinda June Other [employer] [facility] [employer] Other 06-14-2021 19:00-0500 Body mass index (BMI) [Ratio] 42.06 kg/m2 Herlinda June Other [employer] Other 06-14-2021 19:00-0500 Body temperature 96.1 [degF] Herlinda June Other [employer] Other 06-14-2021 19:00-0500 Body weight 104.33 kg Herlinda June Other [employer] Other 06-14-2021 19:00-0500 SaO2% (BldA) [Mass fraction] 97 % Herlinda June Other [employer] Other 06-05-2020 15:11-0500 Body Temperature 97.9 [degF] [facility] 06-05-2020 15:11-0500 BP Diastolic 77 mm[Hg] [facility] 06-05-2020 15:11-0500 BP Systolic 110 mm[Hg] [facility] 06-05-2020 15:11-0500 Pulse (Heart Rate) 79 /min [facility] 06-05-2020 15:11-0500 Pulse Oximetry 96 % [facility] 06-05-2020 15:11-0500 Respiratory Rate 15 /min [facility] 06-03-2020 14:24-0500 BMI (Body Mass Index) 48.29 kg/m2 [facility] 06-03-2020 14:24-0500 Body weight 119.75 kg [facility] 06-03-2020 14:24-0500 Height 157.5 cm [facility] 09-09-2018 13:59-0400 Body Temperature 97.3 [degF] Shameka Baum [facility] 09-09-2018 13:59-0400 BP Diastolic 83 mm[Hg] Shameka Baum [facility] 09-09-2018 13:59-0400 BP Systolic 113 mm[Hg] Shameka Baum [facility] 09-09-2018 13:59-0400 Pulse (Heart Rate) 98 /[facility] 13:59-0400 Pulse Oximetry 100 % Shameka Alemanmer [facility] 09-09-2018 13:59-0400 Respiratory Rate 16 /min Shameka Baum [facility] 09-09-2018 08:00-0400 Body weight 110.8 [facility] 09-07-2018 14:20-0400 Height 157.48 cm [facility] 09-06-2018 19:43-0400 BMI (Body Mass Index) 42.1 kg/m2 [facility] 06-26-2017 21:27-0500 BP Diastolic 105 mm[Hg] Michi San [facility] Work Phone: 06-26-2017 21:27-0500 BP Systolic 122 mm[Hg] Michi [facility] Work Phone: 06-26-2017 21:27-0500 Pulse (Heart Rate) 91 /min Michi [facility] Work Phone: 06-26-2017 21:27-0500 Pulse Oximetry 100 % [facility]i [facility] Work Phone: 06-26-2017 21:27-0500 Respiratory Rate 17 /min Michi [facility] Work Phone: 06-26-2017 18:34-0500 BMI (Body Mass Index) 36.58 kg/m2 Michi [facility] Work Phone: 06-26-2017 18:34-0500 Body Temperature 98.4 [degF] Michi [facility] Work Phone: 06-26-2017 18:34-0500 Height 157.5 cm Michi [facility] Work Phone: 06-26-2017 18:34-0500 Weight 90.72 kg Michi Sna [facility] Work Phone: Encounters Encounter Date Encounter Type Care Provider Facility Start: 12-28-2024 End: 12-28-2024 ambulatory Ben Horn [facility] Work Phone: Start: 12-28-2024 End: 12-28-2024 Departed Referred Ben Long DO -[facility] Start: 12-19-2024 End: 12-22-2024 Refill Jim Velez DO Work Phone: [facility] [place] Comment on above: Chronic pain syndrom e; DDD (degenerative disc disease), lumbar; Lumbar radiculopathy Start: 12-06-2024 End: 12-06-2024 Telephone encounter Addie Chavira MA [facility] - Pharmacy Medication Management Start: 12-02-2024 End: 12-05-2024 Evaluation and management of inpatient Vanessa Vargas MD Work Phone: [facility] - GEN 8 Acute Comment on above: HHS (hypothenar zeus er syndrome) (Primary Dx); Hyperosmolar hyperglycemic state (HHS) (CMS-HCC) Start: 12-02-2024 ambulatory RADHA Long [facility] Start: 11-21-2024 End: 11-21-2024 Refill Jim Velez DO Work Phone: [facility] [place] Comment on above: DDD (degenerative di sc disease), lumbar; Lumbar radiculopathy; Chronic pain syndrome Start: 11-04-2024 End: 11-04-2024 Patient encounter procedure Jessica Romeo PA-C Work Phone: [facility] Comment on above: No-show for appointm ent (Primary Dx) Start: 11-04-2024 ambulatory JESSICA ROMEO Facili ty:[facility] Start: 10-11-2024 End: 10-11-2024 Orders Only Jim Velez DO Work Phone: [facility] [place] Start: 10-06-2024 End: 10-11-2024 Refill Jim Velez DO Work Phone: [facility] [place] Comment on above: Chronic pain syndrom e Start: 10-03-2024 Evaluation and management of inpatient YURY SHAH [facility] Start: 10-02-2024 Evaluation and management of inpatient ELISABETH RAMIREZ [facility] Start: 10-01-2024 Evaluation and management of inpatient JUAN C CRABTREE [facility] Start: 10-01-2024 Evaluation and management of inpatient JUAN C CRABTREE [facility] Start: 10-01-2024 End: 10-05-2024 Evaluation and management of inpatient CARISA STILES [facility] Start: 09-29-2024 End: 09-29-2024 Documentation procedure Jay Peralta MA [facility] Management [place] Comment on above: Zynex Start: 09-28-2024 ambulatory STEPHANY NORIEGA [facility] Start: 09-23-2024 End: 11-23-2024 Refill Jim Velez DO Work Phone: [facility] [place] Comment on above: Chronic pain syndrom e 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 (Primary Dx); Lumbar radiculopathy; Chronic pain syndrome Levetiracetam Level Start: 09-23-2024 End: 09-23-2024 Office outpatient visit 25 minutes Jim Velez DO Work Phone: [facility] [place] Comment on above: Myofascial pain synd sudarshan (Primary Dx); DDD (degenerative disc disease), lumbar; Lumbar radiculopathy; Chronic pain syndrome Start: 09-23-2024 End: 09-23-[address] [facility] Start: 09-22-2024 End: 09-22-2024 Emergency department patient visit SHAMEKA SPARKS [facility] Start: 09-22-2024 End: 10-07-2024 Documentation procedure Karon Beard PA-C Work Phone: [facility] Primary Care Physicians Comment on above: Chronic pain syndrom e Start: 09-22-2024 ambulatory STEPHANY NORIEGA [facility] Start: 09-18-2024 End: 09-18-2024 Emergency department patient visit SHAMEKA BRIDGER PALOMO [facility] Start: 08-29-2024 End: 08-29-2024 Emergency department patient visit No Doctor [facility] Start: 08-24-2024 End: 08-24-2024 Documentation procedure Mihai Elizalde CNP Work Phone: [facility] [place] Start: 08-18-2024 End: 08-19-2024 Orders Only Mery Robles MD Work Phone: [facility] Orthopedics Comment on above: Pain in both knees, unspecified chronicity (Primary Dx) DDD (degenerative di sc disease), lumbar; Lumbar radiculopathy; Chronic pain syndrome Start: 08-08-2024 End: 08-09-2024 Orders Only Agapito Schuler PA-C Work Phone: [facility] Spine Surgery Comment on above: Lumbar pain (Primary Dx) Start: 08-04-2024 End: 08-04-2024 Documentation procedure Rafaela Castillo MA [facility] Primary Care Physicians Comment on above: Pulse ox Start: 08-02-2024 End: 08-02-2024 ambulatory STEPHANY NORIEGA [facility] Start: 08-02-2024 End: 08-02-2024 Office outpatient visit 25 minutes Stephany Pelayo PA-C Work Phone: [facility] Primary Care Physicians Comment on [...] Hypothyroidism, unspecified type; History of stroke; Seizures ([facility]); Hypercholesterolemia; Urinary incontinence, unspecified type; Gastroesophageal reflux disease, unspecified whether esophagitis present; Family history of pulmonary fibrosis; Candidiasis of breast; Insomnia, unspecified type; Vitamin B12 deficiency; Vitamin D deficiency; Encounter for screening mammogram for malignant neoplasm of breast; Encounter for health-related screening Start: 08-02-2024 End: 08-02-2024 ambulatory STEPHANY LEANN [facility] Start: 07-21-2024 End: 07-21-2024 Documentation procedure Rafaela Castillo MA [facility] Primary Care Physicians Comment on above: shower chair Start: 07-15-2024 End: 07-15-2024 Office outpatient visit 25 minutes Stephany Pelayo PA-C Work Phone: [facility] Primary Care Physicians Comment on above: Seizures (HCC) (Prim margoth Dx); Chronic nonintractable headache, unspecified headache type; Primary hypertension; Sick sinus syndrome (HCC); Type 2 diabetes mellitus with diabetic polyneuropathy, with long-term current use of insulin (HCC); Gastroesophageal reflux disease, unspecified whether esophagitis present Start: 07-15-2024 End: 07-15-2024 ambulatory STEPHANY PELAYO [facility] Start: 07-12-2024 End: 07-25-2024 Refill Mihai Shaun Lavonne USABILITY SPECIALIST Work Phone: [facility] [place] Comment [...] foot Start: 07-05-2024 End: 07-05-2024 ambulatory SOTO Long DOLCE Not Available Start: 06-10-2024 End: 06-23-2024 Refill Mihai Shaun Lavonne USABILITY SPECIALIST Work Phone: [facility] [place] Comment on above: Chronic pain syndrom e; DDD (degenerative disc disease), lumbar; Lumbar radiculopathy Start: 06-06-2024 End: 06-07-2024 Documentation procedure Rafaela Castillo MA [facility] Primary Care Physicians Comment on above: incontinence supplie s Start: 05-31-2024 End: 05-31-2024 Documentation procedure Karon Meng LPN [facility] Start: 05-27-2024 End: 05-27-2024 Refill Stephany Pelayo PA-C Work Phone: [facility] Primary Care Physicians Comment on above: Bipolar 1 disorder ( HCC); Insomnia, unspecified type Start: 05-23-2024 End: 05-23-2024 Emergency department patient visit SHAMEKA BRIDGER PALOMO [facility] Start: 05-13-2024 End: 05-13-2024 Office outpatient visit 25 minutes Mihai Elizalde CNP Work Phone: [facility] [place] Comment on above: Lumbar radiculopathy (Primary Dx); Chronic pain syndrome; DDD (degenerative disc disease), lumbar; Encounter for monitoring opioid maintenance therapy; Other chronic pain; Myofascial pain syndrome Start: 05-13-2024 End: 05-13-2024 ambulatory STEPHANY PELAYO [facility] Start: 04-28-2024 End: 04-29-2024 Refill Mihai Elizalde CNP Work Phone: [facility] [place] Comment on above: Chronic pain syndrom e Start: 04-26-2024 End: 04-29-2024 ambulatory [facility] Start: 04-26-2024 End: 04-29-2024 Evaluation and management of inpatient Jacoby Dooley MD Work Phone: [facility] Start: 04-12-2024 End: 04-13-2024 Refill Jim Velez DO Work Phone: [facility] [place] Comment on above: DDD (degenerative di sc disease), lumbar; Lumbar radiculopathy Chronic pain syndrom e Start: 03-30-2024 End: 03-30-2024 Documentation procedure Maite Adams LPN [facility] Endocrinology Comment on above: [facility] Start: 03-25-2024 End: 03-25-2024 Orders Only Stephany Pelayo PA-C Work Phone: [facility] Primary Care Physicians Start: 03-24-2024 End: 04-04-2024 Evaluation and management of inpatient Ko Aaron MD Work Phone: [facility] Surgical [facility] [place] Start: 03-24-2024 End: 03-24-2024 Orders Only Stephany Pelayo PA-C Work Phone: [facility] Primary Care Physicians Start: 03-22-2024 End: 03-22-2024 Office outpatient visit 25 minutes Stephany Pelayo PA-C Work Phone: [facility] Primary Care Physicians Comment on above: Primary hypertension (Primary Dx); Diarrhea, unspecified type; Abdominal cramping; Abdominal wound dehiscence, initial encounter; Bipolar 1 disorder (HCC); Seizures ([facility]); Chronic pain of both knees; Urinary incontinence, unspecified type; Candidiasis; Abnormal pigmentation of skin Start: 03-22-2024 End: 03-25-2024 Refill Jim Velez DO Work Phone: [facility] [place] Comment on above: Chronic pain syndrom e Start: 03-08-2024 End: 03-10-2024 Refill Mihai Elizalde CNP Work Phone: [facility] [place] Comment on above: DDD (degenerative di sc disease), lumbar; Lumbar radiculopathy Start: 02-11-2024 End: 02-15-2024 ambulatory [place] LEANN [facility] Start: 02-11-2024 End: 02-11-2024 Office outpatient visit 25 minutes Stephany Pelayo PA-C Work Phone: [facility] Primary Care Physicians Comment on above: Diabetic ulcer of le ft great toe (HCC) (Primary Dx); Hypertensive urgency; Chronic nonintractable headache, unspecified headache type; Abnormal pigmentation of skin; Pleuritic chest pain; Type 2 diabetes mellitus with diabetic polyneuropathy, with long-term current use of insulin (HCC); Chronic obstructive pulmonary disease, unspecified COPD type (HCC); Hypothyroidism, unspecified type; History of stroke; Seizures (HCC); Hypercholesterolemia; Chronic pain syndrome; Urinary incontinence, unspecified type; Bipolar 1 disorder ([facility]); Insomnia, unspecified type; Gastroesophageal reflux disease, unspecified whether esophagitis present; Family history of pulmonary fibrosis; Vitamin B12 deficiency; Vitamin D deficiency; Cigarette nicotine dependence without complication; Need for vaccination Start: 02-11-2024 End: 02-11-2024 ambulatory STEPHANY PELAYO [facility] Start: 02-08-2024 End: 02-08-2024 Refill Laura Child MA [facility] Psych Comment on above: Bipolar 1 disorder ( [facility]); Insomnia, unspecified type Start: 02-04-2024 End: 02-04-2024 Orders Only Jim Velez DO Work Phone: [facility] [place] Comment on above: DDD (degenerative di sc disease), lumbar; Lumbar radiculopathy Start: 02-03-2024 End: 02-03-2024 Refill Jim Velez DO Work Phone: [facility] [place] Comment on above: DDD (degenerative di sc disease), lumbar; Lumbar radiculopathy Start: 02-02-2024 End: 02-02-2024 Office outpatient visit 25 minutes Jim Velez DO Work Phone: [facility] [place] Comment on above: Chronic pain syndrom e (Primary Dx); DDD (degenerative disc disease), lumbar; Lumbar radiculopathy; Other chronic pain; Myofascial pain syndrome; Debilitated patient Start: 02-02-2024 End: 02-02-2024 ambulatory STEPHANY PELAYO [facility] Start: 01-27-2024 End: 01-27-2024 Transitional care manage srvc 14 day discharge Rafaela Medrano USABILITY SPECIALIST Work Phone: [facility] Primary Care Physicians Comment on above: Diabetic ulcer of ri ght foot associated with type 2 diabetes mellitus, unspecified part of foot, unspecified ulcer stage (HCC) (Primary Dx); Primary hypertension; SOLO (acute kidney injury) (HCC); Hypothyroidism, unspecified type; Hyperlipidemia, unspecified hyperlipidemia type Start: 01-27-2024 End: 01-28-2024 ambulatory Swapnil Hooks [facility] Primary Care Comment on above: Chronic pain syndrom e Start: 01-12-2024 End: 01-18-2024 Evaluation and management of inpatient Jacoby Dooley MD Work Phone: [facility] Start: 01-12-2024 End: 01-12-2024 Office outpatient visit 25 minutes Stephany Pelayo PA-C Work Phone: [facility] Primary Care Physicians Comment on above: Diabetic ulcer of le ft great toe (HCC) (Primary Dx) Start: 01-12-2024 End: 01-12-2024 ambulatory STEPHANY PELAYO [facility] Start: 01-11-2024 End: 01-13-2024 Refill Jim Velez DO Work Phone: [facility] [place] Comment on above: DDD (degenerative di sc disease), lumbar; Lumbar radiculopathy; Muscle spasms of both lower extremities Start: 01-09-2024 End: 01-10-2024 Emergency department patient visit STEPHANY PELAYO [facility] Start: 12-21-2023 End: 12-22-2023 Refill Mihai Elizalde CNP Work Phone: [facility] [place] Comment on above: Chronic pain syndrom e Start: 12-18-2023 ambulatory JIM VELEZ [facility] Start: 12-15-2023 ambulatory JIM VELEZ [facility] Start: 12-14-2023 End: 12-14-2023 Documentation procedure Rafaela Castillo MA [facility] Primary Care Comment on above: nebulizer supplies Start: 12-08-2023 End: 12-08-2023 Office outpatient new 45 minutes Stephany Pelayo PA-C Work Phone: [facility] [place] Comment on above: Chronic pain syndrom e (Primary Dx); Muscle spasms of both lower extremities; DDD (degenerative disc disease), lumbar; Lumbar radiculopathy; Other chronic pain; Myofascial pain syndrome; Debilitated patient Start: 12-08-2023 End: 12-10-2023 Refill Moo Pressley MA [facility] Endocrinology Start: 12-07-2023 End: 12-07-2023 Emergency department patient visit STEPHANY ANN [facility] Start: 12-07-2023 End: 12-08-2023 Refill Moo Pressley MA [facility] Endocrinology Comment on above: Type 2 diabetes chelly itus with diabetic polyneuropathy, with long-term current use of insulin (HCC) Start: 12-03-2023 End: 12-03-2023 Refill Sahara Sanchez MD Work Phone: [facility] Endocrinology Comment on above: Type 2 diabetes chelly itus with diabetic polyneuropathy, with long-term current use of insulin (HCC) Start: 12-02-2023 End: 12-02-2023 Office outpatient new 60 minutes Stephany Pelayo PA-C Work Phone: [facility] Endocrinology Comment on above: Type 2 diabetes chelly itus with diabetic polyneuropathy, with long-term current use of insulin (HCC) (Primary Dx); Proliferative diabetic retinopathy associated with type 2 diabetes mellitus, unspecified laterality, unspecified proliferative retinopathy type (HCC); Dyslipidemia; Essential hypertension; Obesity, unspecified classification, unspecified obesity type, unspecified whether serious comorbidity present Start: 12-02-2023 End: 12-03-2023 Refill Maite Adams LPN [facility] Endocrinology Comment on above: Type 2 diabetes chelly itus with diabetic polyneuropathy, with long-term current use of insulin (HCC) (Primary Dx) Start: 12-01-2023 End: 12-01-2023 Office outpatient visit 25 minutes Stephany Pelayo PA-C Work Phone: [facility] Primary Care Comment on above: Primary hypertension (Primary Dx); Upper respiratory tract infection, unspecified type; Chronic obstructive pulmonary disease, unspecified COPD type (HCC); Family history of pulmonary fibrosis; Retinal hemorrhage of left eye Start: 12-01-2023 End: 12-01-2023 ambulatory STEPHANY PELAYO [facility] Start: 11-17-2023 ambulatory STEPHANY PELAYO [facility] Start: 11-12-2023 Refill Stephany ro PA-C Work Phone: [facility] Primary Care Comment on above: Muscle spasms of bot h lower extremities; Type 2 diabetes mellitus with diabetic polyneuropathy, with long-term current use of insulin (HCC) Start: 11-09-2023 End: 11-09-2023 Office outpatient new 45 minutes Anders London MD Work Phone: [facility] [place] Comment on above: Vision loss of left eye (Primary Dx); Ocular hypertension of left eye; Proliferative diabetic retinopathy of left eye associated with type 2 diabetes mellitus, unspecified proliferative retinopathy type; Nonproliferative diabetic retinopathy of right eye; Pseudophakia; Dry eye syndrome of bilateral lacrimal glands Start: 10-30-2023 Refill Rosario willoughby MD Work Phone: [facility] Psych Start: 10-29-2023 End: 01-12-2024 Orders Only Shaye Gloria MA [facility] Primary Care Start: 10-28-2023 Orders Only Stephany ro PA-C Work Phone: [facility] Primary Care Comment on above: Subacute cough (Prim margoth Dx); Family history of pulmonary fibrosis Start: 10-23-2023 Orders Only Shameka salas DPM Work Phone: [facility] Start: 10-13-2023 End: 10-13-2023 Office outpatient visit 25 minutes Stephany Pelayo PA-C Work Phone: [facility] Primary Care Comment on above: Primary hypertension (Primary Dx); Subacute cough; RUQ abdominal pain; Type 2 diabetes mellitus with diabetic polyneuropathy, with long-term current use of insulin (HCC); Family history of pulmonary fibrosis Start: 10-07-2023 End: 10-07-2023 Office outpatient visit 25 minutes Rosario Sanchez MD Work Phone: [facility] Psych Comment on above: Bipolar 1 disorder ( HCC) (Primary Dx); Post traumatic stress disorder (PTSD); Generalized anxiety disorder; Insomnia, unspecified type Start: 10-07-2023 Documentation procedure Magnolia Chavira LPN [facility] Psych Start: 10-06-2023 Refill Stephany ro PA-C Work Phone: [facility] Primary Care Comment on above: Muscle spasms of bot h lower extremities Start: 09-22-2023 Orders Only Shameka salas DPM Work Phone: [facility] Comment on above: Right foot ulcer, wi th fat layer exposed (HCC) (Primary Dx) Start: 09-16-2023 End: 09-16-2023 Office outpatient visit 40 minutes Virgen Campos MD Work Phone: [facility] Neurology Comment on above: Hearing loss of left ear, unspecified hearing loss type (Primary Dx); Lacunar stroke (HCC); Seizure (HCC) Start: 09-15-2023 Refill Laura Child [facility] Psych Start: 09-10-2023 Documentation procedure Rafaela rockwell MA [facility] Primary Care Comment on above: DME Start: 09-07-2023 Refill Maye Ramirez LPN [facility] Primary Care Comment on above: Muscle spasms of bot h lower extremities Start: 09-03-2023 End: 09-03-2023 Periodic preventive med est patient 40-64yrs Stephany Pelayo PA-C Work Phone: [facility] Primary Care Comment on above: [...] deficiency; Cigarette nicotine dependence without complication Start: 08-26-2023 End: 08-26-2023 Emergency department patient visit Floyd Mercado MD Work Phone: [facility] Emergency Department Start: 08-11-2023 Refill Rafaela Colmenares USABILITY SPECIALIST Work Phone: [facility] Primary Care Comment on above: Muscle spasms of bot h lower extremities Start: 08-10-2023 Refill Rafaela Colmenares USABILITY SPECIALIST Work Phone: [facility] Primary Care Comment on above: Type 2 diabetes chelly itus with diabetic polyneuropathy, with long-term current use of insulin (HCC) (Primary Dx); Muscle spasms of both lower extremities Start: 08-03-2023 End: 08-03-2023 Office outpatient new 60 minutes Stephany Pelayo PA-C Work Phone: [facility] Psych Comment on above: Post traumatic stres s disorder (PTSD) (Primary Dx); Bipolar 1 disorder (HCC); Insomnia, unspecified type; Generalized anxiety disorder Start: 06-22-2023 End: 06-22-2023 Office outpatient visit 25 minutes Harris Bhat MD Work Phone: [facility] Primary [facility] Comment on above: Bipolar 1 disorder ( HCC) (Primary Dx); Type 2 diabetes mellitus with diabetic polyneuropathy, with long-term current use of insulin (HCC); Seizures (HCC); Incontinence in female Start: 06-22-2023 Refill Maye Ramirez LPN [facility] Comment on above: Bipolar 1 disorder ( HCC) (Primary Dx) Start: 05-27-2023 ambulatory Marcia [facility] Comment on above: High Risk Outreach f or High Risk Start: 05-15-2023 End: 05-15-2023 Home visit Jackelyn Wasserman RN [facility] Comment on above: SN HH NON ADMIT VISI T Start: 05-15-2023 End: 05-15-2023 Office outpatient visit 25 minutes Stephany Pelayo PA-C Work Phone: [facility] Primary Care Comment on above: Left-sided weakness (Primary Dx); Visual loss, left eye; Acute effusion of left ear; Diabetic ulcer of right foot associated with type 2 diabetes mellitus, unspecified part of foot, unspecified ulcer stage ([facility]); Gastroesophageal reflux disease, unspecified whether esophagitis present; Weight gain Start: 05-15-2023 ambulatory Faustina Severino RN [facility] Primary Care Comment on above: High Risk Outreach f or High Risk Start: 05-15-2023 Documentation procedure Rafaela rockwell [facility] Primary Care Comment on above: hosp bed Start: 05-14-2023 ambulatory Swapnil Hooks [facility] Start: 05-11-2023 ambulatory [facility] Start: 05-06-2023 End: 05-06-2023 Office outpatient new 45 minutes Stephany Pelayo PA-C Work Phone: [facility] Primary Care Comment on above: Non-recurrent acute suppurative otitis media of left ear without spontaneous rupture of tympanic membrane (Primary Dx); Type 2 diabetes mellitus with diabetic polyneuropathy, with long-term current use of insulin (HCC); Diabetic ulcer of right foot associated with type 2 diabetes mellitus, unspecified part of foot, unspecified ulcer stage (HCC); Diabetic peripheral neuropathy (HCC); Hypertensive urgency; Chronic obstructive pulmonary disease, unspecified COPD type (HCC); Chronic chest pain; S/P placement of cardiac pacemaker; Hypothyroidism, unspecified type; Seizures (HCC); Bipolar 1 disorder (HCC); Insomnia, unspecified type; [...] 04-29-2023 End: 04-29-2023 Home visit Cece Colin OT [facility] [facility] Comment on above: OT NON-OASIS/DISCIPL INE DISCHARGE Start: 04-29-2023 End: 04-29-2023 Home visit Karen Prather PT [facility] Comment on above: PT NON-OASIS/DISCIPL INE DISCHARGE Start: 04-27-2023 Home visit Nikko Pratt OLIVE BRINE TESTER [facility] Comment on above: OLIVE BRINE TESTER MISSED VISIT Start: 04-24-2023 End: 04-24-2023 Home visit Radha Jameson [facility] Comment on above: RETANA MISSED VISIT OLIVE BRINE TESTER MISSED VISIT Start: 04-23-2023 End: 04-23-2023 Home visit Radha Jameson [facility] Comment on above: RETANA MISSED VISIT Start: 04-22-2023 End: 04-22-2023 Home visit Ama Wilcox RN [facility] Comment on above: SN HH OASIS DISCHARG E Start: 04-21-2023 End: 04-21-2023 Home visit Nikko Pratt [facility] Comment on above: OLIVE BRINE TESTER MISSED VISIT CASE COMMUNICATION CARE CONFERENCE Start: 04-20-2023 End: 04-20-2023 Home visit Ama Wilcox RN [facility] Comment on above: SN MISSED VISIT Start: 04-17-2023 Home visit Sharla Paulino [facility] Comment on above: PREDICTIVE MAINTENANCE TECHNICIAN MISSED VISIT Start: 04-15-2023 End: 04-15-2023 Home visit Tiny Arias [facility] Comment on above: CASE COMMUNICATION SN HH ROUTINE VISIT RETANA ROUTINE VISIT Start: 04-14-2023 End: 04-14-2023 Home visit Carolina Boston [facility] Comment on above: PREDICTIVE MAINTENANCE TECHNICIAN HH ROUTINE Start: 04-14-2023 End: 04-14-2023 Home visit Nikko Pratt [facility] Comment on above: OLIVE BRINE TESTER ROUTINE VISIT OT INITIAL EVALUATIO N Start: 04-10-2023 Home visit Cece Colin OT [facility] Comment on above: CASE COMMUNICATION Start: 04-09-2023 End: 04-09-2023 Home visit Carolina Boston [facility] Comment on above: PREDICTIVE MAINTENANCE TECHNICIAN HH ROUTINE Start: 04-08-2023 End: 04-08-2023 Home visit Carlitos Carrera SCIENTIFIC MANAGER [facility] Comment on above: SCIENTIFIC MANAGER HH ROUTINE Start: 04-08-2023 End: 04-08-2023 Home visit Lisa Padron PT [facility] Comment on above: PT INITIAL EVALUATIO N Start: 04-07-2023 Home visit Lisa Padron PT [facility] Comment on above: CASE COMMUNICATION PREDICTIVE MAINTENANCE TECHNICIAN MISSED VISIT Start: 04-01-2023 End: 04-01-2023 Home visit Kassidy Wick RN [facility] Comment on above: SN HH OASIS START OF CARE Start: 03-31-2023 ambulatory [facility] Start: 03-30-2023 End: 04-22-2023 ambulatory [facility] Start: 03-29-2023 End: 03-30-2023 Emergency department patient visit Ko Aaron MD Work Phone: [facility] Start: 02-17-2023 End: 02-20-2023 Evaluation and management of inpatient Hayde Agrawalkodak Pickering DO Work Phone: [facility] [address] [place] Start: 02-09-2023 End: 02-09-2023 Office outpatient new 20 minutes Josué Christianson DO Work Phone: [facility] Comment on above: Strain of right hams tring, initial encounter (Primary Dx); Strain of right knee, initial encounter; Other specified diabetes mellitus with other specified complication, unspecified whether medical terminologist insulin use (HCC) Start: 02-04-2023 Orders Only Josué Christianson DO Work Phone: [facility] Comment on above: Right knee pain, uns pecified chronicity (Primary Dx) Start: 12-12-2022 ambulatory No Doctor Facility:[facility] Start: 10-29-2022 End: 11-02-2022 Evaluation and management of inpatient Jacob PierceMaris Nelson Facility[facility] Start: 10-21-2022 Evaluation and management of inpatient RAFAELA Pollock Facility: Start: 10-11-2022 End: 10-11-[address] DOCTOR ARREGUIN Facility:[facility] Start: 10-07-2022 Emergency department patient visit UNKNOWN PROVIDER Facility:[facility] Start: 10-06-2022 End: 10-07-2022 Emergency department patient visit UNKNOWN PROVIDER Facility:[facility] Start: 10-06-2022 End: 10-07-2022 Emergency department patient visit Jocelyn Bowen MD Work Phone: [facility] Comment on above: Chart (Transfer from [facility] for MRI) Start: 10-06-2022 End: 10-06-2022 Emergency department patient visit Preston Lugo [facility] Start: 09-18-2022 End: 09-18-2022 ambulatory YESENIA ZAMUDIO . Facility:[facility] Start: 09-12-2022 End: 09-15-2022 Evaluation and management of inpatient Pepe Echols [facility] Start: 09-12-2022 End: 09-12-2022 Admission to same day surgery center FINANCIAL RECORDING CLERK-C Laurent Franco Work Phone: [facility] [place] Start: 09-12-2022 End: 09-12-2022 ambulatory FINANCIAL RECORDING CLERK-C Laurent Franco Work Phone: [facility] Work Phone: Start: 09-09-2022 End: 09-09-2022 ambulatory SANTOS VELEZ . Facility:[facility] Start: 09-07-2022 End: 09-07-[address] DOCTOR ARREGUIN Facility:[facility] Start: 09-02-2022 End: 09-02-2022 ambulatory Shameka Romero Other [employer] Other Start: 09-02-2022 Telephone encounter Shameka Duong [facility] Start: 08-29-2022 End: 08-29-2022 Patient encounter procedure LAURENT FRANCO [facility] Start: 08-20-2022 End: 08-22-2022 Evaluation and management of inpatient FINANCIAL RECORDING CLERK-C Kip Sorandyak Work Phone: [facility] [place] [facility] Work Phone: Start: 08-20-2022 End: 08-22-2022 Evaluation and management of inpatient FINANCIAL RECORDING CLERK-C Kip Soviak Work Phone: [facility] [place] [facility] Work Phone: Start: 08-20-2022 observation encounter FINANCIAL RECORDING CLERK-C Kip W Sorandyak Work Phone: [facility] Work Phone: Start: 08-19-2022 End: 08-19-2022 Emergency department patient visit Santos Velez [facility] Start: 08-14-2022 ambulatory JULIA CHAPA . Facility: [facility] Start: 08-02-2022 End: 08-06-2022 Evaluation and management of inpatient DR POLO MILTON Facility:[facility] Start: 07-30-2022 End: 07-30-2022 ambulatory KHADAR ROQUE . Facility:[facility] Start: 07-10-2022 End: 07-11-2022 ambulatory YESENIA ZAMUDIO . Facility:[facility] Start: 06-21-2022 End: 06-21-[address] ROBERT LUX . Facility:[facility] Start: 06-11-2022 End: 06-12-2022 ambulatory RADHA DIAS Facility:[facility] Start: 06-02-2022 End: 06-02-2022 Emergency department patient visit Bridgett Gillespie [facility] Start: 05-15-2022 End: 05-15-2022 Emergency department patient visit Santos Velez [facility] Start: 04-20-2022 End: 04-21-2022 ambulatory RADHA DIAS Facility:[facility] Start: 04-06-2022 End: 04-09-2022 Evaluation and management of inpatient Ashutosh MENARD [facility] Start: 03-31-2022 End: 03-31-2022 ambulatory YESENIA ZAMUDIO . Facility:[facility] Start: 03-04-2022 End: 03-06-[address] DOCTOR ARREGUIN Facility:[facility] Start: 02-27-2022 End: 02-27-2022 Emergency department patient visit Gui Schafer [facility] Start: 02-21-2022 End: 02-21-2022 Emergency department patient visit Santos Velez [facility] Start: 02-17-2022 End: 02-18-[address] MICHI MENDEZ . Facility:[facility] Start: 02-06-2022 End: 02-06-[address] POLO MILTON Facility:[facility] Start: 01-24-2022 End: 01-24-2022 Emergency department patient visit Preston Jonese [facility] Start: 01-09-2022 End: 01-09-2022 Observation Juan GONZALEZ [facility] Start: 01-01-2022 End: 01-02-2022 ambulatory CARISA STILES Facility:[facility] Start: 01-01-2022 End: 01-01-2022 Patient encounter procedure Breanna Gu [facility] Start: 12-12-2021 End: 12-12-2021 Patient encounter procedure Breanna Gu [facility] Start: 12-08-2021 End: 12-08-2021 Emergency department patient visit CEM MARIO [facility] Start: 12-08-2021 End: 12-08-2021 Emergency department patient visit Antoine Sosa MD Work Phone: [facility] Comment on above: Other insomnia (Prim margoth Dx) Start: 12-08-2021 End: 12-08-2021 Emergency department patient visit Santos Moreno [facility] Start: 12-04-2021 End: 12-04-[address] DOCTOR ARREGUIN Facility:[facility] Start: 12-02-2021 End: 12-02-2021 Patient encounter procedure Breanna Gu [facility] Start: 11-28-2021 End: 11-28-[address] DOCTOR ARREGUIN Facility:[facility] Start: 11-27-2021 End: 11-27-2021 Patient encounter procedure Breanna Gu [facility] Start: 11-04-2021 End: 11-06-2021 Evaluation and management of inpatient Diamondd Evelyn [facility] Start: 10-30-2021 End: 10-30-2021 Lab Drop off Breanna Gu [facility] Start: 10-10-2021 End: 02-01-2022 Pre-admission assessment Nancy GUTIERREZ [facility] Start: 10-09-2021 End: 10-09-2021 Emergency department patient visit Santos Velez [facility] Start: 10-03-2021 End: 10-03-2021 Patient encounter procedure Breanna Gu [facility] Start: 09-30-2021 End: 09-30-2021 Patient encounter procedure Breanna Gu [facility] Start: 09-30-2021 End: 09-30-2021 Preprocedural examination done Breanna Gu [facility] Start: 09-27-2021 End: 09-27-2021 Patient encounter procedure Soto Bhandariha [facility] Start: 09-02-2021 End: 11-21-2021 Pre-admission assessment Nancy GUTIERREZ [facility] Start: 09-02-2021 End: 09-02-2021 Patient encounter procedure Kirk Abbott [facility] Start: 08-29-2021 End: 08-29-2021 Patient encounter procedure Breanna Gu [facility] Start: 06-14-2021 End: 06-14-2021 ambulatory Herlinda June Other [employer] Other Start: 06-14-2021 Office outpatient vi sit 15 minutes Herlinda June [facility] Start: 08-02-2020 End: 08-02-2020 Orders Only Daniel Baxter Work Phone: [facility] Start: 06-03-2020 End: 06-05-2020 Evaluation and management of inpatient BREANNA NORIEGA [facility] Start: 06-03-2020 Critical care ill/injured patient init 30-74 min Ko Hankins Work Phone: [facility] Start: 06-03-2020 End: 06-05-2020 Evaluation and management of inpatient Ko Hankins Work Phone: [address] Comment on above: Type 2 diabetes chelly itus with left diabetic foot infection (HCC) (Primary Dx); Diabetic infection of left foot (HCC); Abscess of chin Start: 08-10-2019 End: 08-11-2019 Emergency department patient visit AMBROCIO Thuy CHAVEZ Facility:[facility] Start: 11-29-2018 End: 11-29-2018 Patient encounter procedure Shameka Baum [facility] Start: 09-07-2018 End: 09-09-2018 Evaluation and management of inpatient Shameka Baum [facility] Start: 07-29-2018 Registered Recurring Shameka [facility] Start: 07-23-2018 End: 08-31-2018 Discharged Recurring Shameka [facility] Start: 06-25-2018 End: 06-25-2018 Patient encounter procedure NONE MJ Facility: Start: 05-04-2018 End: 05-04-2018 Patient encounter procedure Shameka Baum [facility] Start: 09-01-2017 End: 09-02-2017 Emergency department patient visit CEM MARIO [facility] Start: 07-17-2017 End: 07-23-2017 Ambulatory BEN DE JESUS [facility] Start: 06-26-2017 End: 06-26-2017 Emergency department patient visit Michi San Work Phone: [facility] Start: 06-23-2017 End: 06-23-2017 Patient encounter procedure Shameka Baum [facility] Start: 02-16-2017 End: 02-16-2017 Emergency department patient visit KEYLA PRATT [facility] Start: 02-09-2017 End: 02-09-2017 Departed Referred Shameka Baum [facility] Start: 01-16-2016 End: 01-16-2016 Admission to day surgery Shameka Baum [facility] Start: 10-02-2012 End: 10-02-2012 Emergency department patient visit Shameka Baum [facility] Start: 04-23-2012 End: 04-23-2012 Departed Referred Shameka Baum [facility] Start: 12-23-2009 End: 12-23-2009 Departed Referred Shameka Baum [facility] Start: 12-21-2002 End: 12-21-2002 Emergency department patient visit Shameka Baum [facility] Start: 08-25-2002 End: 08-25-2002 Emergency department patient visit Shameka Baum [facility] Start: 06-27-2002 End: 06-27-2002 [facility] Start: 05-08-2002 End: 05-08-2002 Emergency department patient visit Shameka Baum [facility] Start: 10-25-2001 End: 10-25-2001 Patient encounter procedure Shameka Baum [facility] Start: 10-27-1999 End: 10-27-1999 Emergency department patient visit Shameka Baum [facility] Start: 09-10-1999 End: 09-10-1999 Emergency department patient visit Shameka Baum [facility] Procedures Date Procedure Procedure Detail Performing Clinician Start: 12-05-2024 BEDSIDE GLUCOSE Elda Aguirre MD Work Phone: Start: 12-05-2024 BEDSIDE GLUCOSE Elda Aguirre MD Work Phone: Start: 12-05-2024 Basic metabolic panel calcium total Hanna Mari MD Work Phone: Start: 12-04-2024 BEDSIDE GLUCOSE Elda Aguirre MD Work Phone: Start: 12-04-2024 BEDSIDE GLUCOSE Elda Aguirre MD Work Phone: Start: 12-04-2024 BEDSIDE GLUCOSE Elda Aguirre MD Work Phone: Start: 12-04-2024 BEDSIDE GLUCOSE Elda Aguirre MD Work Phone: Start: 12-04-2024 Basic metabolic panel calcium total Hanna Mari MD Work Phone: Start: 12-04-2024 BEDSIDE GLUCOSE Vanessa Vargas MD Work Phone: Start: 12-03-2024 BEDSIDE GLUCOSE Vanessa Vargas MD Work Phone: Start: 12-03-2024 BEDSIDE GLUCOSE Vanessa Vargas MD Work Phone: Start: 12-03-2024 End: 12-03-2024 BEDSIDE GLUCOSE Vanessa Vargas MD Work Phone: Start: 12-03-2024 End: 12-03-2024 BEDSIDE GLUCOSE Vanessa Vargas MD Work Phone: Start: 12-03-2024 BEDSIDE GLUCOSE Vanessa Vargas MD Work Phone: Start: 12-03-2024 End: 12-03-2024 BEDSIDE GLUCOSE Vanessa Vargas MD Work Phone: Start: 12-03-2024 End: 12-03-2024 Electrolyte panel Lianne Mccormick MD Work Phone: Start: 12-03-2024 End: 12-03-2024 BEDSIDE GLUCOSE Vanessa Vargas MD Work Phone: Start: 12-03-2024 End: 12-03-2024 BEDSIDE GLUCOSE Vanessa Vargas MD Work Phone: Start: 12-03-2024 Adult depression screening assessment Addie Chavira MA Start: 09-22-2024 Follow-up visit Follow-up STEPHANY PELAYO Start: 08-02-2024 Comprehensive metabolic panel Stephany Pelayo [...] measurement Generic [facility] Work Phone: Start: 04-26-2024 Radex foot complete minimum 3 views Jacoby Dooley MD Work Phone: Start: 04-26-2024 Basic metabolic panel calcium total Jacoby Dooley MD Work Phone: Start: 04-26-2024 C-reactive protein Jacoby Dooley MD Work Phone: Start: 04-26-2024 DARK GREEN TOP Jacoby Dooley MD Work Phone: Start: 04-26-2024 LAVENDER TOP Jacoby Doloey MD Work Phone: Start: 04-26-2024 LIGHT BLUE [...] Work Phone: Start: 04-02-2024 Glucose measurement Generic [facility] Work Phone: Start: 04-02-2024 Renal function panel Julia Hendrix DO Work Phone: Start: 04-01-2024 Glucose measurement Generic [facility] Work Phone: Start: 04-01-2024 Radex foot complete minimum 3 views Shameka Castillo DP Work Phone: Start: 04-01-2024 End: 04-01-2024 Cul bact xcpt urine blood/stool aerobic isol Shameka Castillo DPM Work Phone: Start: 04-01-2024 End: 04-01-2024 Amputation toe metatarsophalangeal joint Shameka Castillo DPM Work Phone: Start: 04-01-2024 Glucose measurement [facility] Work Phone: Start: 04-01-2024 Renal function panel Julia Hendrix DO Work Phone: Start: 03-31-2024 Ct lower extremity w/o contrast material Shameka Castillo DPM Work Phone: Start: 03-31-2024 Ct [...] Phone: Start: 03-30-2024 Renal function panel Julia Hendrix DO Work Phone: Start: 03-29-2024 Glucose measurement Generic [...] Phone: Start: 03-28-2024 Renal function panel Julia Simeon DO Work Phone: Start: 03-27-2024 Glucose measurement [facility] Work Phone: Start: 03-27-2024 Us retroperitoneal real time w/image complete Misha Serrato MD Work Phone: Start: 03-27-2024 Glucose measurement [facility] Work Phone: Start: 03-27-2024 Glucose measurement Generic [facility] Work Phone: Start: 03-27-2024 Glucose measurement [facility] Work Phone: Start: 03-27-2024 End: 03-27-2024 Radiologic exam chest single view Julia hearn DO Work Phone: Start: 03-27-2024 Glucose measurement [facility] Work Phone: Start: 03-27-2024 Comprehensive metabolic panel Jennifer Ortega John USABILITY SPECIALIST Work Phone: Start: 03-27-2024 Glucose measurement [facility] Work Phone: Start: 03-26-2024 Basic metabolic panel calcium total John Chaparro MD Work Phone: Start: 03-26-2024 Glucose measurement [facility] Work Phone: Start: 03-26-2024 Glucose measurement Generic [facility] Work Phone: Start: 03-26-2024 Glucose measurement [facility] Work Phone: Start: 03-26-2024 End: 03-26-2024 Glucose measurement Generic [facility] Work Phone: Start: 03-26-2024 Creatinine blood Lisa Hammond [facility],PharmD Start: 03-26-2024 LAVENDER TOP Jennifer Lopez USABILITY SPECIALIST Work Phone: Start: 03-26-2024 RAINBOW DRAW Jennifer Lopez USABILITY SPECIALIST Work Phone: Start: 03-25-2024 Glucose measurement Generic [facility] Work Phone: Start: 03-25-2024 Glucose measurement Generic [facility] Work Phone: Start: 03-25-2024 Assay of lactate Ani Gonzales USABILITY SPECIALIST Work Phone: Start: 03-25-2024 Cul bact xcpt urine blood/stool aerobic isol Avila Rajan PA-C Work Phone: Start: 03-25-2024 Glucose measurement Generic [facility] Work Phone: Start: 03-25-2024 Assay of lactate Ani Gonzales USABILITY SPECIALIST Work Phone: Start: 03-25-2024 Electrocardiogram Generic [facility] Work Phone: Start: 03-25-2024 End: 03-25-2024 Basic metabolic panel calcium total Imran Malcolm Smith MD Work Phone: Start: 03-25-2024 End: 03-25-2024 Glucose measurement Generic [facility] Work Phone: Start: 03-25-2024 End: 03-25-2024 Glucose measurement Ko Aaron MD Work Phone: Start: 03-25-2024 Culture bacterial quanttative colony count urine Ani Gonzales USABILITY SPECIALIST Work Phone: Start: 03-25-2024 Ecg routine ecg w/least 12 lds trcg only w/o i&r Ani Gonzales USABILITY SPECIALIST Work Phone: Start: 03-24-2024 Comprehensive metabolic panel Ani Gonzales USABILITY SPECIALIST Work Phone: Start: 03-24-2024 Gases blood ph direct jordin xcpt pulse oximitry Ani Gonzales USABILITY SPECIALIST Work Phone: Start: 03-24-2024 GOLD TOP Ko Aaron MD Work Phone: Start: 03-24-2024 Hepatic function panel Ani Correia Christian [employer] SPECIALIST Work Phone: Start: 03-24-2024 LIGHT BLUE TOP Ko Aaron MD Work Phone: Start: 03-24-2024 OBTAIN VENOUS BLOOD GASES AND PERFORM Ani Correia Christian [employer]ABILITY SPECIALIST Work Phone: Start: 03-24-2024 RAINBOW DRAW Ko Aaron MD Work Phone: Start: 03-24-2024 Radex toe minimum 2 views Ko Castaneda MD Work Phone: Start: 01-18-2024 End: 01-18-2024 Glucose measurement [facility] Work Phone: Start: 01-18-2024 Renal function panel Enrique Lainez PA-C Work Phone: Start: 01-17-2024 Glucose [...] Work Phone: Start: 01-17-2024 Renal function panel Enrique Lainez PA-C Work Phone: Start: 01-16-2024 Glucose measurement [facility] Work Phone: Start: 01-16-2024 Urnls dip stick/tablet reagent auto microscopy Mary Lou Castillo USABILITY SPECIALIST Work Phone: Start: 01-16-2024 Glucose measurement [facility] Work Phone: Start: 01-16-2024 Us retroperitoneal real time w/image complete Mary Lou Castillo USABILITY SPECIALIST Work Phone: Start: 01-16-2024 Glucose measurement [facility] Work Phone: Start: 01-16-2024 Glucose measurement [facility] Work Phone: Start: 01-16-2024 Renal function panel Enrique Lainez PA-C Work Phone: Start: 01-15-2024 End: 01-15-2024 Glucose measurement [facility] Work Phone: Start: 01-15-2024 Renal function panel Enrique Lainez PA-C Work Phone: Start: 01-14-2024 Urnls dip stick/tablet reagent auto microscopy Ruthy Dong MD Work Phone: Start: 01-14-2024 Glucose measurement [facility] Work Phone: Start: 01-14-2024 Glucose measurement [facility] Work Phone: Start: 01-14-2024 Glucose measurement [facility] Work Phone: Start: 01-14-2024 Glucose measurement [facility] Work Phone: Start: 01-14-2024 Renal function panel Enrique Lainez PA-C Work Phone: Start: 01-13-2024 Glucose measurement [facility] Work Phone: Start: 01-13-2024 End: 01-13-2024 Glucose measurement Generic [facility] Work Phone: Start: 01-13-2024 Ct lower extremity w/o contrast material Shameka Aguirre Jonathan DPM Work Phone: Start: 01-13-2024 Glucose measurement Generic [facility] Work Phone: Start: 01-13-2024 Glucose measurement Generic [facility] Work Phone: Start: 01-13-2024 Blood count complete automated Enrique Bailey PA-C Work Phone: Start: 01-13-2024 Renal function panel Enrique Lainez PA-C Work Phone: Start: 01-12-2024 Ecg routine ecg w/least 12 lds trcg only w/o i&r Mk Leigh MD Work Phone: Start: 01-12-2024 Glucose measurement Generic [facility] Work Phone: Start: 01-12-2024 Radex foot complete minimum 3 views Matheus Chavira PA-C Work Phone: Start: 01-12-2024 Basic metabolic panel calcium total Matheus Chavira PA-C Work Phone: Start: 01-12-2024 C-reactive protein Matheus Chavira PA-C Work Phone: Start: 01-12-2024 LAVENDER TOP Jacoby Dooley MD Work Phone: Start: 01-12-2024 LIGHT BLUE TOP Jacoby Dooley MD Work Phone: Start: 01-12-2024 LIGHT GREEN TOP Jacoby Dooley MD Work Phone: Start: 01-12-2024 MINT GREEN TOP Jacoby Dooley MD Work Phone: Start: 01-12-2024 RAINBOW DRAW Jacoby Dooley MD Work Phone: Start: 12-01-2023 Iaadiadoo influenza [...] Work Phone: Start: 03-30-2023 Glucose measurement Generic [facility] Work Phone: Start: 03-30-2023 Renal function panel Enrique Lainez PA-C Work Phone: Start: 03-29-2023 Glucose measurement Generic [facility] Work Phone: Start: 03-29-2023 Assay of troponin quantitative Ko Aaron MD Work Phone: Start: 03-29-2023 Electrocardiogram Ko Aaron MD Work Phone: Start: 03-29-2023 Glucose measurement Generic [facility] Work Phone: Start: 03-29-2023 Comprehensive metabolic [...] Work Phone: Start: 02-18-2023 Glucose measurement Generic [facility] Work Phone: Start: 02-18-2023 Glucose measurement Generic [facility] Work Phone: Start: 02-18-2023 Myocardial spect multiple studies Andrea King MD Work Phone: Start: 02-18-2023 Glucose measurement Generic [facility] Work Phone: Start: 02-18-2023 Assay of troponin quantitative Ambrosio Butcher MD Work Phone: Start: 02-18-2023 Electrocardiogram [facility] Work Phone: Start: 02-18-2023 End: 02-18-2023 Basic metabolic panel calcium total Ambrosio Butcher MD Work Phone: Start: 02-18-2023 Glucose measurement Generic [facility] Work Phone: Start: 02-18-2023 Assay of [...] Ecg routine ecg w/least 12 lds w/i&r Hayde Pickering DO Work Phone: Start: 10-07-2022 Ct [...] Blood culture for bacteria, including anaerobic screen FINANCIAL RECORDING CLERK-C Laurent Franco Work Phone: Start: 08-20-2022 Pulse volume recorder pneumoplethysmography FINANCIAL RECORDING CLERK-C Laurent Franco Work Phone: Start: 08-19-2022 X-ray of left foot FINANCIAL RECORDING CLERK-C Laurent Luzak Work Phone: Start: 08-07-2022 Microscopic examination of blood, culture YESENIA ZAMUDIO . Comment on above: Performed By: #### [id number] ####Mary Kay Rivera [facility] [address] [place], [place] [address]DrMaris Devin Suresh Start: 12-08-2021 Drug screen, qualitate/multi Antoine todd MD Work Phone: Start: 12-08-2021 Urinalysis microscopic only Antoine narayanan MD Work Phone: Start: 12-08-2021 Urnls dip stick/tablet rgnt auto w/o microscopy Antoine Sosa MD Work Phone: Start: 06-05-2020 Glucose [Mass/volume] in Blood Bridger villeda Work Phone: Start: 06-05-2020 Aerobic microbial culture Lisa Agrawalbritta thuy Hendrickson Work Phone: Start: 06-05-2020 Glucose [Mass/volume] [...] Lactate [Moles/volume] in Serum or Plasma Bridger Garner Work Phone: Start: 06-04-2020 Glucose [Mass/volume] in Blood Bridger villeda Work Phone: Start: 06-04-2020 Glucose [Mass/volume] in Blood Bridger villeda Work Phone: Start: 06-04-2020 Glucose [Mass/volume] in Blood Breanna Bolivar Work Phone: Start: 06-04-2020 Glucose [Mass/volume] in Blood Breanna Bolivar Work Phone: Start: 06-04-2020 Basic metabolic 2000 panel - Serum or Plasma Breanna Leann Shaniqueteresita Work Phone: Start: 06-04-2020 Complete blood count with white cell differential, automated Breanna Leann Sheldon Work Phone: Start: 06-04-2020 Complete blood count with white cell differential, manual Breanna Leann Sheldon Work Phone: Start: 06-04-2020 Hemoglobin A1c/Hemoglobin.total in Blood Jessica Carvalho Start: 06-04-2020 Magnesium [Mass/volume] in Serum or Plasma Breanna Noriega Shaniqueteresita Work Phone: Start: 06-03-2020 Assay of lactate Ko Hankins Work Phone: Start: 06-03-2020 Glucose [Mass/volume] in Blood Breanna arechiga Shaniqueteresita Work Phone: Start: 06-03-2020 COVID-19, MOLECULAR Ko [...] Start: 09-01-2017 TROPONIN KEYLA PRATT Start: 09-01-2017 NUMERICAL CONTROL NESTING OPERATOR KEYLA PRATT Start: 09-01-2017 INSERT PERIPHERAL IV KEYLA PRATT Start: 09-01-2017 EKG 12-LEAD KEYLA PRATT Start: 07-23-2017 Division of fascia Breanna Gu Comment on above: PLANTAR FASCIOTOMY ENDOSCOPIC, Left. wit h ankle lateral stabilization. PLANTAR FASCIOTOMY E NDOSCOPIC, Left. with ankle lateral stabilization. Start: 06-23-2017 Radiography of cervical spine Shameka Medina dmer Start: 02-16-2017 Microscopic urinalysis KEYLA PRATT Start: 02-16-2017 UA W/REFLEX CULTURE KEYLA PRATT Start: 02-16-2017 URINE CULTURE KEYLA PRATT Start: 02-16-2017 TROPONIN KEYLA PRATT Start: 02-16-2017 Chest x-ray 1 view frontal KEYLA PATELS Start: 02-16-2017 INSERT PERIPHERAL IV KEYLA PRATT Start: 02-16-2017 EKG 12-LEAD KEYLA PRATT Start: 02-16-2017 APTT KEYLA PRATT Start: 02-16-2017 BASIC METABOLIC PANEL KEYLA PRATT Start: 02-16-2017 BRAIN NATRIURETIC PEPTIDE KEYLA GUERRA Start: 02-16-2017 CBC WITH AUTO DIFFERENTIAL JOSE CANAND Long JESS Start: 02-16-2017 D-DIMER, QUANTITATIVE KEYLA PRATT Start: 02-16-2017 PROTIME-INR KEYLA PRATT Start: 02-16-2017 TROPONIN KEYLA PRATT Start: 01-24-2016 Right Plantar Fasciotomy Breanna Gu Start: 05-27-2012 Microalbumin [Mass/volume] in Urine by Test strip Ko Nhi Ankle Breanna Gu ankle surgery ORIF 3 Breanna Gu Comment on above: bilateral bilateral Cholecystectomy Breanna cline Colonoscopy Breanna Riccardo Dentition (body structure) K paece Gu Esophagogastroduodenoscopy K peace Gu Hysterectomy Breanna Gu insertion of Infusaport 4 Ka clareadalgisa Riccardo Comment on above: right chest right chest Laparoscopy Breanna Gu Loop electrosurgical excision procedure of cervix Breanna Gu pacemaker 5 Breanna Gu Comment on above: Jan 2012- [facility] Jan 2012- [facility] Structure of eye pro per (body structure) Breanna Gu Plan of Treatment Date Care Activity Detail Author Start: 02-22-2032 DTaP,Tdap and Td Vaccines (2 - Td or Tdap) DTaP,Tdap and Td Vaccines (2 - Td or Tdap) [facility] Start: 02-22-2032 Tetanus vaccination [facility] Start: 2027 Shingles (RZV) Vaccine (1 of 2) Shingles (RZV) Vaccine (1 of 2) [facility] Start: 03-06-2027 Cholesterol [Mass/volume] in Serum or Plasma Cholesterol [facility] Start: 12-03-2025 Adult BMI Screening Adult BMI Screening [facility] Start: 12-03-2025 Depression Screening Depression Screening [facility] Start: 12-03-2025 Tobacco Screening Tobacco Screening [facility] Start: 08-02-2025 Urine screening for protein eGFR Diabetes [facility] Start: 04-04-2025 Urine screening for protein eGFR Diabetes [facility] Start: 03-25-2025 eGFR Diabetes eGFR Diabetes [facility] Start: 03-25-2025 Urine screening for protein eGFR Diabetes [facility] Start: 03-22-2025 Urine screening for protein eGFR Diabetes [facility] Start: 03-03-2025 End: 03-03-2025 Patient encounter procedure 03/03/2025 8:00 AM EDT Office Visit [facility] [address] [address] Lexy Leach MD [address] [address] [facility] Start: 02-14-2025 COVID-19 Vaccine ( season) COVID-19 Vaccine ( season) [facility] Comment on above: Postponed from 01/24/2024 (Treatment Not Available) Start: 02-14-2025 COVID-19 Vaccine ( season) COVID-19 Vaccine ( season) [facility] Comment on above: Postponed from 01/24/2024 (Treatment Not Available) Start: 02-02-2025 Hemoglobin A1c measurement HBA1C TEST [facility] Start: 01-23-2025 Influenza vaccination [facility] Start: 01-17-2025 Urine screening for protein eGFR Diabetes [facility] Start: 01-05-2025 End: 01-05-2025 Patient encounter procedure 01/05/2025 7:30 AM EDT Office Visit [facility] [place] [address] [place] [address] Mihai Elizalde, USABILITY SPECIALIST [address] [place] [address] [facility] [place] Start: 01-01-2025 Hemoglobin A1c measurement A1C [facility] Start: 12-28-2024 Bacteria identified in Urine by Culture Urine Culture [facility] Start: 12-28-2024 Urine culture [facility] Start: 12-21-2024 End: 12-21-2024 Patient encounter procedure 12/21/2024 10:40 AM EDT Office Visit [facility] [place] [address] [place] [address] Mihai Elizalde, USABILITY SPECIALIST [address] [place] [address] [facility] [place] Start: 12-12-2024 End: 12-12-2024 Patient encounter procedure 12/12/2024 3:30 PM EDT Office Visit [facility] End[facility] [address] [place] [address] Sahara Sanchez MD [address] [place] [address] [facility] Start: 12-07-2024 End: 12-07-2024 Patient encounter procedure 12/07/2024 10:00 AM EDT Office Visit [facility] [address] [facility] [place] [address] Lindsay Johnson APRN-USABILITY SPECIALIST [address] [place] [address], [place] [address] [facility] Start: 12-05-2024 End: 12-05-2024 Patient encounter procedure 12/05/2024 2:20 PM EDT Office Visit [facility] Primary Care Physicians [address] [place] [address] Stephany Pelayo PA-C [address] [place] [address] [facility] Start: 12-04-2024 Diabetic foot examination Diabetic Foot Exam [facility] Start: 11-08-2024 Glaucoma screening [facility] Start: 11-02-2024 Hemoglobin A1c measurement A1C [facility] Start: 10-28-2024 Urine screening for protein eGFR Diabetes [facility] Start: 10-14-2024 End: 10-14-2024 Patient encounter procedure 10/14/2024 8:40 AM EDT Office Visit [facility] Primary Care Physicians [facility] [place] [address] Setphany Pelayo PA-C [address] [place] [address] [facility] Start: 10-11-2024 End: 10-11-2024 Patient encounter procedure 10/11/2024 2:30 PM EDT Office Visit [facility] Orthopedics [facility] [place] [address] Mery Robles MD [facility] [place] [address] [facility] Start: 10-10-2024 End: 10-10-2024 Patient encounter procedure 10/10/2024 3:40 PM EDT Office Visit [facility] Primary Care Physicians [facility] [place] [address] Stephany Pelayo PA-C [address] [place] [address] [facility] Start: 09-28-2024 End: 09-28-2024 Patient encounter procedure 09/28/2024 9:45 AM EDT Office Visit [facility] Endocrinology [address] [place] [address] Sahara Sanchez MD [address] [facility] [place] [address] [facility] Start: 09-27-2024 Urine screening for protein eGFR Diabetes [facility] Start: 09-23-2024 End: 09-23-2025 External Lab Urine Drug Screen External Lab Urine Drug Screen Lab Routine Lumbar radiculopathy Chronic pain syndrome Expected: 09/23/2024, Expires: 09/23/2025 [facility] Work Phone: Comment on above: Expected: 09/23/2024, Expires: Start: 09-23-2024 End: 09-23-2024 Patient encounter procedure 09/23/2024 10:30 AM EDT Office Visit [facility] [place] [address] [place] [address] Jim Velez DO [address] [place] [address] [facility] [place] Start: 09-02-2024 History and physical examination, annual for health maintenance Wellness Visit [facility] Start: 09-02-2024 Screening for malignant neoplasm of colon Colorectal Cancer Screening/Monitoring [facility] Comment on above: Postponed from 1977 (Patient Refus ed) Start: 09-02-2024 Urine screening for protein Urine Microalbumin [facility] Start: 08-23-2024 End: 08-23-2024 Patient encounter procedure [facility] Start: 08-22-2024 End: 08-22-2024 Patient encounter procedure 08/22/2024 1:30 PM EDT Office Visit [facility] Primary Care Physicians [address] [place] [address] Rafaela Medrano, USABILITY SPECIALIST [address] [place] [address] [facility] Start: 08-10-2024 End: 08-10-2024 Patient encounter procedure [facility] Spine Surgery Start: 08-09-2024 End: 08-09-2024 Patient encounter procedure 08/09/2024 4:00 PM EDT Office Visit [facility] [place] [address] [place] [address] Jim Velez DO [address] [place] [address] [facility] [place] Start: 07-28-2024 End: 07-28-2024 Patient encounter procedure 07/28/2024 2:20 PM EST Office Visit [facility] Primary Care Physicians [address] [place], [place] [address] [address] Stephany Pelayo PA-C [address] [facility] 2 [place] [address] [facility] Start: 07-26-2024 End: 07-26-2024 ambulatory [facility] Start: 07-26-2024 End: 07-26-2024 Patient encounter procedure 07/26/2024 11:00 AM EST Office Visit [facility] Primary [facility] Physicians [address] [place], [place] [address] [address] Stephany Pelayo PA-C [address] [facility] [address] [place] [address] [facility] Start: 07-20-2024 Urine screening for protein eGFR Diabetes [facility] Start: 07-08-2024 End: 07-08-2024 Patient encounter procedure 07/08/2024 8:50 AM EST Office Visit [facility] [address] [place] [address] Soto Box, DPM FACFAS [address] [place] [address] [facility] Start: 07-07-2024 End: 07-07-2024 Patient encounter procedure 07/07/2024 2:20 PM EST Office Visit [facility] Primary Care Physicians [address] [place] [phone] Stephany Pelayo PA-C [address] [place] [address] [facility] Start: 07-05-2024 End: 07-05-2024 Patient encounter procedure 07/05/2024 8:20 AM EST Office Visit [facility] [address] [facility] [place] [address] Soto Box, DPM FACFAS [address] [place] [address] Arrived [facility] Comment on above: Arrived Start: 06-22-2024 Hemoglobin A1c measurement [facility] Start: 06-20-2024 End: 06-20-2024 Patient encounter procedure 06/20/2024 9:40 AM EST Office Visit [facility] Neurology [address] [address] Virgen Campos MD [address] [place] [address] [facility] Start: 05-11-2024 End: 05-11-2024 ambulatory [facility] End[facility] Start: 05-11-2024 End: 05-11-2024 Patient encounter procedure 05/11/2024 2:15 PM EST Office Visit [facility] End[facility]in[facility] [address] [place] [address] Sahara Sanchez MD [address] [place] [address] [facility] Start: 05-11-2024 End: 05-11-2024 ambulatory [facility] Start: 05-11-2024 End: 05-11-2024 Patient encounter procedure 05/11/2024 10:15 AM EST Office Visit [facility] [address] [place] [address] Ramiro Hale MD [address] [facility] [address] [place] [address] Discharge Disposition: Home [facility] Start: 05-06-2024 COVID-19 Vaccine () COVID-19 Vaccine () [facility] Comment on above: Postponed from 01/23/2023 (Patient Refus ed) Start: 05-06-2024 Hepatitis C screening Hepatitis C Screening [facility] Comment on above: Postponed from 1995 (Patient Refus ed) Start: 05-06-2024 HIV screening HIV Screening [facility] Comment on above: Postponed from 1992 (Patient Refus ed) Start: 05-06-2024 Screening for malignant neoplasm of cervix Pap Smear [facility] Comment on above: Postponed from 1998 (Patient Refus ed) Start: 05-05-2024 End: 05-05-2024 Patient encounter procedure 05/05/2024 11:40 AM EST Office Visit [facility] [place] [address] [place] [address] Mihai Elizalde, BEATRIZ [address] [facility] [place] [address] [facility] [place] Start: 04-27-2024 End: 04-27-2024 ambulatory [facility] [place] Start: 04-27-2024 End: 04-27-2024 Patient encounter procedure 04/27/2024 3:40 PM EST Office Visit [facility] [place] [address] [place] [address] Mihai Elizalde, USABILITY SPECIALIST [address] [place] [address] [facility] [place] Start: 04-19-2024 End: 04-19-2024 Patient encounter procedure 04/19/2024 8:40 AM EST Office Visit [facility] [place] [address] [place] [address] Mihai Elizalde, USABILITY SPECIALIST [address] [place] [address] [facility] [place] Start: 04-14-2024 Diabetic foot examination Diabetic Foot Exam [facility] Start: 04-13-2024 Hemoglobin A1c measurement A1C [facility] Start: 04-01-2024 End: 04-01-2024 Patient encounter procedure 04/01/2024 11:00 AM EST Office Visit [facility] Primary [facility] Physicians [address] [place] [address] Stephany Pelayo PA-C [address] [place] [address] [facility] Start: 03-22-2024 End: 03-22-2024 Patient encounter procedure 03/22/2024 11:00 AM EDT Office Visit [facility] Primary [facility] Physicians [address] [place] [address] Stephany Pelayo PA-C [address] [place] [address] [facility] Start: 03-03-2024 End: 03-03-2024 Patient encounter procedure [facility] Primary Care Start: 03-01-2024 End: 03-01-2024 Patient encounter procedure 03/01/2024 11:30 AM EDT Office Visit [facility] Psych [address] [place] [address] Rosario Sanchez MD [address] [place] [address] [facility] Psych Start: 02-17-2024 End: 02-17-2024 Patient encounter procedure 02/17/2024 1:40 PM EDT Office Visit [facility] Neurology [address] [place] [address] Virgen Campos MD [address] [place] [address] [facility] Start: 02-10-2024 End: 02-10-2024 Patient encounter procedure 02/10/2024 1:00 PM EDT Office Visit [facility] Primary Care Physicians [address] [facility] [place] [address] Rafaela Medrano, USABILITY SPECIALIST [address] [place] [address] [facility] Start: 02-02-2024 End: 02-02-2024 Patient encounter procedure 02/02/2024 4:00 PM EDT Office Visit [facility] [place] [address] [facility] [place] [address] Jim Velez, [address] [facility] [place] [address] [facility] [place] Start: 01-28-2024 End: 01-28-2024 Patient encounter procedure 01/28/2024 2:00 PM EDT Office Visit [facility] Psych [address] [place] [address] Rosario Sanchez MD [address] [place] [address] [facility] Psych Start: 01-27-2024 End: 01-27-2024 Patient encounter procedure 01/27/2024 1:30 PM EDT Office Visit [facility] Physicians [address] [facility] [place] [address] Rafaela Medrano, USABILITY SPECIALIST [address] [place] [address] [facility] Start: 01-24-2024 COVID-19 VACCINE ( season) COVID-19 VACCINE ( season) [facility] Start: 01-24-2024 COVID-19 Vaccine ( season) COVID-19 Vaccine ( season) [facility] Start: 01-24-2024 COVID-19 Vaccine ( season) COVID-19 Vaccine ( season) [facility] Start: 01-24-2024 Influenza vaccination Influenza Vaccine (#1) [facility] Start: 01-19-2024 End: 01-19-2024 Patient encounter procedure 01/19/2024 11:30 AM EDT Office Visit [facility] Psych [address] [facility] [address] [place] [address] Rosario Sanchez MD [address] [place] [address] [facility] Psych Start: 01-15-2024 Hemoglobin A1c measurement A1C [facility] Start: 12-23-2023 End: 12-23-2023 ambulatory 12/23/2023 3:15 PM EDT Evaluation [facility] Physical Therapy [address] [facility] [place] [address] Jim Velez, DO [address] [facility] [place] [address] Mary Wells, PT Discharge Disposition: Home [facility] Therapy Start: 12-22-2023 End: 12-22-2023 Patient encounter procedure 12/22/2023 2:00 PM EDT Office Visit [facility] Physician [facility] Urology [address] [place] [address] Sharla Camara PA-C [address] [place] [address] [facility] Start: 12-21-2023 End: 12-21-2023 Patient encounter procedure 12/21/2023 2:00 PM EDT Office Visit [facility] Neurology [address] [place] [address] Virgen Campos MD [address] [place] [address] [facility] Start: 12-14-2023 End: 12-14-2023 Patient encounter procedure 12/14/2023 10:00 AM EDT Office Visit [facility] Endocrinology [address] [place] [address] Sahara Sanchez MD [address] [place] [address] [facility] Start: 12-08-2023 End: 12-08-2023 Patient encounter procedure 12/08/2023 2:00 PM EDT Office Visit [facility] [place] [address] [place] [address] Stephany Pelayo PA-C [address] [place] [address] Jim Velez DO [address] [place] [address] [facility] [place] Start: 12-03-2023 End: 12-03-2023 Patient encounter procedure 12/03/2023 2:00 PM EDT Office Visit [facility] [place] [address] [place] [address] Jim Velez DO [address] [place] [address] [facility] [place] Start: 12-02-2023 End: 12-02-2023 Patient encounter procedure 12/02/2023 1:45 PM EDT Office Visit [facility] Endocrinology [address] [place] [address] Stephany Pelayo PA-C [address] [place] [address] Sahara Sanchez MD [address] [place] [address] [facility] Start: 11-19-2023 End: 11-19-2023 Patient encounter procedure 11/19/2023 12:40 PM EDT Office Visit [facility] Primary Care [address] [place] [address] Stephany Pelayo PA-C [address] [place] [address] [facility] Primary Care Start: 11-19-2023 End: 11-19-2023 ambulatory 11/19/2023 9:00 AM EDT Evaluation [facility] Ophthalmology [address] [place] [address] Stephany Pelayo PA-C [address] [place] [address] Karon Monzon, [address] [place] [address] [facility] Start: 10-13-2023 End: 10-13-2023 Patient encounter procedure 10/13/2023 11:20 AM EDT Office Visit [facility] Primary Care [address] [place] [address] Stephany Pelayo, PAKandi [address] [place] [address] [facility] Primary Care Start: 10-08-2023 End: 10-08-2023 Patient encounter procedure 10/08/2023 7:00 AM EDT Appointment [facility] EEG [address] [place] [address] Virgen Campos MD [address] [place] [address] [facility] EEG Start: 10-07-2023 End: 10-07-2023 Patient encounter procedure [facility] Psych Start: 10-03-2023 Glaucoma screening Diabetic Eye Exam [facility] Comment on above: Postponed from 1987 (Per Other [facility] Practice Guidelines) Start: 09-16-2023 End: 09-16-2023 Patient encounter procedure 09/16/2023 1:00 PM EDT Office Visit [facility] Neurology [address] [place] [address] Virgen Campos MD [address] [place] [address] [facility] Neu[facility] Start: 09-03-2023 End: 09-03-2023 Patient encounter procedure 09/03/2023 2:00 PM EDT Office Visit [facility] Primary Care [address] [place] [address] Stephany Pelayo, BHARAT [address] [place] [address] [facility] Start: 08-19-2023 End: 08-19-2023 Patient encounter procedure 08/19/2023 2:00 PM EDT Office Visit [facility] Urology [address] [place] [address] Sharla Camara PA-C [address] [place] [address] [facility] Start: 08-09-2023 Hemoglobin A1c measurement A1C [facility] Start: 08-03-2023 End: 08-03-2023 Patient encounter procedure 08/03/2023 2:30 PM EDT Initial consult [facility] Psych [address] [place] [address] Stephany Pelayo PA-C [address] [place] [address] Rosario Sanchez MD [address] [place] [address] [facility] Start: 07-23-2023 Diabetic foot examination Diabetic Foot Exam [facility] Comment on above: Postponed from 1987 (Per Other [facility] Practice Guidelines) Start: 07-03-2023 End: 07-03-2023 ambulatory 07/03/2023 9:00 AM EST Evaluation [facility] Ophthalmology [address] [place] [address] Stephany Pelayo PA-C [address] [place] [address] Karon Monzon DO [address] [place] [address] [facility] Ophthal[facility] Start: 06-29-2023 Hemoglobin A1c measurement A1C [facility] Start: 06-29-2023 End: 06-29-2023 Patient encounter procedure 06/29/2023 10:00 AM EST Office Visit [facility] Cardiology [address] [place] [address] Dakota Edward MD [address] [place] [address] [facility] Card[facility] Start: 06-23-2023 End: 06-23-2023 Patient encounter procedure 06/23/2023 8:15 AM EST Office Visit [facility] Endocrinology [address] [place] [phone] Stephany Pelayo PA-C [address] [place] [address] Sahara Sanchez MD [address] [place] [address] [facility] Endocrin[facility] Start: 06-22-2023 End: 06-22-2023 ambulatory 06/22/2023 2:30 PM EST Evaluation [facility] Ophthalmology [address] [place] [address] Karon Monzon, [address] [place] [address] [facility] Ophthal[facility] Start: 06-22-2023 End: 06-22-2024 Bacteria identified in Unspecified specimen by Aerobe culture Urine Aerobic Culture Microbiology Routine Incontinence in female Expected: 06/22/2023 (Approximate), Expires: 06/22/2024 [facility] Comment on above: Expected: 06/22/2023 (Approximate), Expi res: 06/22/2024 Start: 06-22-2023 End: 06-21-2024 Urinalysis Urinalysis with microscopic Lab Routine Incontinence in female Expected: 06/22/2023 (Approximate), Expires: 06/21/2024 [facility] Work Phone: Comment on above: Expected: 06/22/2023 (Approximate), Expi res: 06/21/2024 Start: 06-11-2023 End: 06-11-2023 Patient encounter procedure 06/11/2023 9:00 AM EST Office Visit [facility] Neurology [address] [place] [address] Virgen Campos MD [address] [place] [address] [facility] Neu[facility] Start: 06-03-2023 End: 06-03-2023 Patient encounter procedure 06/03/2023 11:00 AM EST Office Visit [facility] Card[facility] [address] [facility] [place] [address] Stephany Pelayo PA-C [address] [place] [address] Cristy Najera MD [address] [facility] [place] [address] [facility] Start: 05-28-2023 End: 05-28-2023 Home visit 05/28/2023 8:00 AM EST Home Care Visit [facility] [address] [place] [address] Sharla Paulino PSA [facility] Start: 05-26-2023 End: 05-26-2023 Home visit 05/26/2023 8:00 AM EST Home Care Visit [facility] [address] [place] [address] Sharla Paulino PSA [facility] Start: 05-23-2023 Glaucoma screening Diabetic Eye Exam [facility] Comment on above: Postponed from 1987 (Per Other [facility] t Practice Guidelines) Start: 05-21-2023 End: 05-21-2023 Home visit 05/21/2023 8:00 AM EST Home Care Visit [facility] [address] [place] [address] Sharla Paulino PSA [facility] Start: 05-19-2023 End: 05-19-2023 Home visit 05/19/2023 8:45 AM EST Home Care Visit [facility] [address] [place] [address] Sharla Paulino PSA [facility] Start: 05-15-2023 End: 05-15-2023 Patient encounter procedure [facility] Start: 05-14-2023 End: 05-14-2023 Home visit 05/14/2023 8:00 AM EST Home Care Visit [place] [address] [place] [address] Sharla Paulino PSA [facility] Start: 05-12-2023 End: 05-12-2023 Home visit 05/12/2023 8:45 AM EST Home Care Visit [place] [address] [place] [address] Sharla Paulino PSA [facility] Start: 05-07-2023 End: 05-07-2023 Patient encounter procedure 05/07/2023 1:00 PM EST Office Visit [facility] Neurology [address] [place] [address] [address] [place] [address] Virgen Campos MD [address] [place] [address] [address] [place] [address] [facility] Neu[facility] Start: 05-07-2023 End: 05-07-2023 Home visit 05/07/2023 8:00 AM EST Home Care Visit [facility] [address] [place] [address] Sharla Paulino PSA [facility] Start: 05-05-2023 End: 05-05-2023 Home visit 05/05/2023 8:45 AM EST Home Care Visit [place] [address] [place] [address] Sharla Paulino PSA [facility] Start: 04-30-2023 End: 05-01-2023 Home visit [facility] Start: 04-29-2023 End: 04-29-2023 Home visit [facility] Start: 04-28-2023 End: 04-28-2023 Home visit 04/28/2023 10:15 AM EST Home Care Visit [facility] [address] [place] [address] Sharla Paulino PSA [facility] Start: 04-27-2023 End: 04-28-2023 Home visit [facility] Start: 04-27-2023 End: 04-27-2023 Home visit 04/27/2023 4:30 AM EST Home Care Visit [place] [address] [place] [address] Carlitos Carrera LPN [facility] Start: 04-24-2023 End: 04-24-2023 Home visit 04/24/2023 7:30 AM EST Home Care Visit [facility] [address] [place] [address] Carlitos Carrera LPN [facility] Start: 04-23-2023 End: 04-23-2023 Home visit 04/23/2023 12:30 PM EST Home Care Visit [facility] [address] [place] [address] Radha Jameson OTA [facility] Start: 04-23-2023 End: 04-23-2023 Home visit 04/23/2023 9:15 AM EST Home Care Visit [place] [address] [place] [address] Sharla Paulino PSA [facility] Start: 04-22-2023 End: 04-22-2023 Home visit [facility] Start: 04-21-2023 End: 04-21-2023 Home visit 04/21/2023 3:30 PM EST Home Care Visit [facility] [address] [place] [address] Tiny Arias PTA [facility] Start: 04-21-2023 End: 04-21-2023 Home visit 04/21/2023 12:30 PM EST Home Care Visit [facility] [address] [place] [address] Radha Jameson OTA [facility] Start: 04-21-2023 End: 04-21-2023 Home visit [facility] Start: 04-20-2023 End: 04-20-2023 Home visit [facility] Start: 04-17-2023 End: 04-17-2023 Home visit [facility] Start: 04-15-2023 End: 04-15-2023 Home visit [facility] Start: 04-14-2023 Hemoglobin A1c measurement A1C [facility] Start: 04-14-2023 End: 04-14-2023 Home visit 04/14/2023 12:15 PM EST Home Care Visit [facility] [address] [place] [address] Carolina Boston PSA [facility] Start: 04-14-2023 End: 04-14-2023 Home visit 04/14/2023 10:15 AM EST Home Care Visit [facility] [address] [place] [address] Sharla Paulino PSA [facility] Start: 04-13-2023 End: 04-13-2023 Home visit 04/13/2023 Home Care Visit [facility] [address] [place] [address] Tiny Arias PTA [facility] Start: 04-10-2023 End: 04-10-2023 Home visit 04/10/2023 5:45 AM EST Home Care Visit [facility] [address] [place] [address] Cece Colin OT [facility] Start: 04-09-2023 End: 04-09-2023 Home visit [facility] Start: 04-08-2023 End: 04-08-2023 Home visit 04/08/2023 11:30 AM EST Home Care Visit [facility] [address] [place] [address] Carlitos Carrera LPN [facility] Start: 04-07-2023 End: 04-08-2023 Home visit [facility] Start: 04-03-2023 End: 04-03-2023 Home visit 04/03/2023 11:15 AM EST Home Care Visit [facility] [address] [place] [address] Sharla Paulino PSA [facility] Start: 04-03-2023 End: 04-03-2023 Home visit 04/03/2023 8:30 AM EST Home Care Visit [facility] [address] [place] [address] Cece Colin OT [facility] Start: 04-03-2023 End: 04-03-2023 Home visit 04/03/2023 4:30 AM EST Home Care Visit [facility] [address] [place] [address] Karen Prather PT [facility] Start: 02-09-2023 End: 02-09-2023 Patient encounter procedure 02/09/2023 2:45 PM EDT Office Visit [facility] [address] [facility] [place] [address] Josué Christianson DO [address] [facility] [place] [address] [facility] Start: 01-23-2023 COVID-19 VACCINE (2022-24 season) COVID-19 VACCINE ( season) [facility] Start: 01-23-2023 COVID-19 VACCINE ( season) COVID-19 VACCINE ( season) [facility] Start: 01-23-2023 COVID-19 Vaccine ( season) COVID-19 Vaccine ( season) [facility] Start: 01-23-2023 Influenza vaccination Sequential Influenza Vaccine (#1) [facility] Start: 09-12-2022 [facility] Start: 09-12-2022 OR DSA (Angiogram) W/TLA/Stent Left Leg (Left) OR DSA (Angiogram) W/TLA/Stent Left Leg (Left) [facility] Start: 08-22-2022 [facility] Start: 08-22-2022 Lower limb angiography IR Angiogram Left Leg (Left) [facility] Start: 08-21-2022 Referral to vascular surgeon [facility] Start: 08-20-2022 Blood culture for bacteria, including anaerobic screen Blood Culture [facility] Start: 08-20-2022 Drainage of Left Foot Skin, External Approach Drainage of Left Foot Skin, External Approach [facility] Start: 08-20-2022 Referral to infectious diseases physician [facility] Start: 08-20-2022 Hospital admission [facility] Start: 08-20-2022 [address] specialist [facility] Start: 08-19-2022 Plain chest X-ray XR chest 1V portable [facility] Start: 08-19-2022 X-ray of left foot XR foot LT min 3V* [facility] Start: 08-19-2022 XR Chest Single view [facility] Start: 08-19-2022 XR Foot - left GE 3 Views [facility] Start: 2022 Screening for malignant neoplasm of colon [facility] Start: 03-06-2022 Pneumococcal Vaccine: Ped or At-Risk (2 - PCV) Pneumococcal Vaccine: Ped or At-Risk (2 - PCV) [facility] Start: 01-23-2022 Influenza vaccination Flu vaccine (#1) [facility] Start: 04-13-2021 COVID-19 Vaccine (2 - Pfizer series) COVID-19 Vaccine (2 - Pfizer series) [facility] Start: 04-13-2021 COVID-19 Vaccine (3 - Mixed Product series) COVID-19 Vaccine (3 - Mixed Product series) [facility] Start: 12-02-2020 HbA1c (Bld) [Mass fraction] A1C [facility] Start: 04-01-2018 Potassium [Moles/volume] in Serum or Plasma POTASSIUM [facility] Start: 09-11-2017 Hemoglobin A1c measurement HBA1C TEST [facility] Start: 2017 Screening for malignant neoplasm of breast [facility] Start: 01-23-2017 Influenza vaccination SEQUENTIAL INFLUENZA VACCINE (#1) [facility] Work Phone: Start: 05-25-2016 Lipid panel Lipids [facility] Start: 04-02-2014 HbA1c HEMOGLOBIN A1C [facility] Work Phone: Start: 05-27-2013 Urine screening for protein Urine Microalbumin [facility] Start: 05-27-2013 Urine, microalbumin URINE MICROALBUMIN [facility] Work Phone: Start: 06-30-2009 Lipid panel LIPIDS [facility] Start: 06-02-2009 Urine screening for protein [facility] Start: 2007 Screening for malignant neoplasm of cervix [facility] Start: 1998 Screening for malignant neoplasm of cervix [facility] Start: 1996 DTaP/Tdap/Td vaccine (1 - Tdap) DTaP/Tdap/Td vaccine (1 - Tdap) [facility] Start: 1996 Hepatitis B vaccination HEP B VACCINE (1 of 3 - 19+ 3-dose series) [facility] Start: 1995 Adult BMI Follow Up Plan Adult BMI Follow Up Plan [facility] Start: 1995 Hepatitis C antibody, confirmatory test Hepatitis C Screening [facility] Start: 1995 Hepatitis C screening [facility] Start: 1993 COVID-19 Vaccine (1 of 2) COVID-19 Vaccine (1 of 2) [facility] Start: 1992 [facility] Start: 1989 Depression Screen [facility] Screen [facility] Start: 1987 Diabetic foot examination (regime/therapy) [facility] Start: 1987 Glaucoma screening [facility] Start: 1987 Ophthalmic examination and evaluation OPHTHALMOLOGY EXAM [facility] Work Phone: Start: 1987 Urine screening for protein Urine (micro)albumin/creatini ne ratio - Diabetes [facility] Start: 1980 History and physical examination, annual for health maintenance Wellness Visit [facility] Start: 1977 COVID-19 Vaccine (#1) COVID-19 Vaccine (#1) [facility] Start: 1977 Diabetic foot examination [facility] Start: 1977 Glaucoma screening EYE EXAM [facility] Start: 1977 Hepatitis C screening HEPATITIS C VIRUS SCREENING [facility] Start: 1977 Screening for malignant neoplasm of cervix PAP SMEAR [facility] Work Phone: Start: 1977 Screening for malignant neoplasm of colon [facility] Start: 1977 Screening mammography Mammogram [facility] Start: 1977 Tetanus vaccination [facility] Work Phone: Start: 1977 Thyroid stimulating hormone measurement TSH [facility] Start: 1977 Tobacco Counseling Tobacco Counseling [facility] Aerobic microbial culture Wound Aerobic Culture Microbiology Routine 06/05/2020 11:32 AM EST [facility] Bacteria identified Cx Nom (Bld) Blood Culture Aerobic/Anaerobic Microbiology Routine 06/03/2020 2:39 PM EST [facility] Bacteria identified in Blood by Culture [facility] Work Phone: Bacteria identified in Unspecified specimen by Anaerobe culture [facility] End: 09-02-2024 Basic metabolic 2000 panel - Serum or Plasma Basic Metabolic Panel Lab Routine Primary hypertension 1 Occurrences starting 09/03/2023 until 09/02/2024 [facility] Comment on above: 1 Occurrences starting 09/03/2023 until 09/02/2024 End: 01-26-2025 Basic metabolic 2000 panel - Serum or Plasma Basic Metabolic Panel Lab Routine SOLO (acute kidney injury) (HCC) 1 Occurrences starting 01/27/2024 until 01/26/2025 [facility] Work Phone: Comment on above: 1 Occurrences starting 01/27/2024 until 01/26/2025 End: 10-07-2022 Blood typing serologic abo ABO RH TYPE Lab STAT One time for 1 Occurrences starting 10/07/2022 until 10/07/2022 [facility] Comment on above: One time for 1 Occurrences starting 09/22 until 10/07/2022 End: 03-22-2025 Clostridium difficile toxin assay Clostridium Difficile Testing Microbiology Routine Diarrhea, unspecified type 1 Occurrences starting 03/22/2024 until 03/22/2025 [facility] Comment on above: 1 Occurrences starting 03/22/2024 until 03/22/2025 End: 03-22-2025 Complete blood count with white cell differential, manual CBC and Differential Lab Routine Diarrhea, unspecified type Abdominal cramping 1 Occurrences starting 03/22/2024 until 03/22/2025 [facility] Comment on above: 1 Occurrences starting 03/22/2024 until 03/22/2025 End: 08-02-2025 Complete blood count with white cell differential, manual CBC and Differential Lab Routine Primary hypertension 1 Occurrences starting 08/02/2024 until 08/02/2025 [facility] Work Phone: Comment on above: 1 Occurrences starting 08/02/2024 until 08/02/2025 End: 10-12-2024 Comprehensive metabolic 2000 panel - Serum or Plasma Comprehensive Metabolic Panel Lab Routine RUQ abdominal pain 1 Occurrences starting 10/13/2023 until 10/12/2024 [facility] Comment on above: 1 Occurrences starting 10/13/2023 until 10/12/2024 End: 03-22-2025 Comprehensive metabolic 2000 panel - Serum or Plasma Comprehensive Metabolic Panel Lab Routine Diarrhea,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 ([facility]). This was my first attempt to reach the patient and unable to leave a message due to voicemail being full. Patient will be asked to bring PPMM Additional Info: Medication List, Medication Bottles, 6 month medication dispense history (patient should obtain from their pharmacy), Blood Glucose Meter, Blood Sugar Log, and Weight Log. Referral was added to spreadsheet. Referring provider: Elda Aguirre MD documented in this encounter [facility] 12-06-2024 Telephone encounter Note [facility]ICATION MANAGEMENT [address] [facility] [id number] New referral received by [facility] Medication Management for adherence & access, diabetes, and weight management. Patient was contacted to schedule appointment at [facility]ication [facility] ([facility]). This was my first attempt to reach the patient and unable to leave a message due to voicemail being full. Patient will be asked to bring PPMM Additional Info: Medication List, Medication Bottles, 6 month medication dispense history (patient should obtain from their pharmacy), Blood Glucose Meter, Blood Sugar Log, and Weight Log. Referral was added to spreadsheet. Referring provider: Elda Aguirre MD [facility] 12-05-2024 Progress note Formatting of t his note might be different from the original. DISCHARGE PLANNING NOTE CRF/Med Rec sent to. [address] (P# ; F# ); [place] (P# [phone] ; F# [phone]) [facility] 12-05-2024 Miscellaneous Notes DISCHARGE PLANNING NOTE CRF/Med Rec sent to. [address] (P# ; F# ); [place] (P# [phone] ; F# [phone]) DISCHARGE PLANNING NOTE Referral to [facility]- P# ; F# , [address] (P# ; F# ) , [facility] - [facility] (P# ; F# ) Physical Therapy Evaluation Discharge Recommendations for Safe Patient Transition Discharge Recommendations: Post acute - moderate Post Acute Moderate Rehab Needs: Recommend moderate intensity rehab, Tolerate 1-2 hrs of therapy 3-5 days/wk, Subacute or chronic functional impairment Current Impairments Informing Therapy Recommendation: Ambulation status/safety, Fall risk, Endurance level Therapy Plan Need for skilled Physical Therapy to address deficits in functional mobility due to a status decline resulting from hospital admission 12/02/24 from OSH with sudden onset vision loss B eyes. 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 w/c or bedside chair)?: A lot To walk in hospital room?: A lot Climbing 3-5 steps with a railing?: Total Scoring 6 Clicks: Basic Mobility Raw Score: 14 [facility] G Code Modifier: CK PT Treatment/Interventions: Functional transfer training, LE strengthening/ROM, Endurance training, Patient/family training, Equipment eval/education, Balance, Bed mobility, Gait training, Functional activities PT Frequency: 4-5days/week PT Duration: LOS Assessment Patient Assessment Therapy Problem List: Decreased balance, Decreased endurance, Decreased mobility, Decreased safe judgement during ADL, Decreased LE strength Patient Response to Treatment: Tolerated evaluation without adverse reaction, Slow progress, decreased activity tolerance Mood/Affect: Flat (pt irritated with therapy team) Rehab Prognosis: Good, With continued PT status post acute discharge Visit RN Communication: Yes Medical Record Reviewed: Yes PT Type of Visit: Evaluation Precautions Activity: ealry mobility: pass ,ok per Rafael RN for PT eval Equipment: RW, gait belt, ex cath Telemetry/Entry Level Installation Technician: Yes Oxygen Used: room air Other: (S) fall risk, blurry vision B eyes, bed alarm Pain Assessment Pain Assessment: 0-10 Pain Score: 9 Pain Location: Throat Pain Intervention(s): Repositioned, Ambulation/increased activity Response to Interventions: Quiet Home Living Type of Home: House Home Layout: Two level Other : Pt became irritated with questions regarding home envirnonment, despite education on importance of being aware of any barriers to safe return home. Pt when asked if she lived in a house, pt responded, No, I live in a cardboard box. Yes I live in a house Remaining questions deferred due to pt's agitation. Prior Function Lives With: Daughter Other: Unable to obtain PLOF as pt continued to exhibit irritation with questions. Hearing / Speech / Vision Hearing: Within Functional Limits Speech: Within Functional Limits Current Vision: (pt c/o continued blurred vision) Cognition Overall Cognitive Status: Within Functional Limits Sensation Overall Sensation Status: Within Functional Limits Bed Mobility Supine to Sit: Stand by assist (with HOB elevated and use of bed rail) Sit to Supine: Min assist (to move BLE into bed) Other: Pt required increased time/effort to complete all phases of bed mobility. Transfers Sit to Stand: Min assist Stand to Sit: Min assist Other: Initial sit>stand attempt, pt exhibited sudden posterior LOB and returned to seated position at EOB. Second trial, pt was able to complete transfer without LOB. Gait Base of Support: Within Functional Limits Pattern: Decreased cristo, L Decreased heel strike, R Decreased heel strike, R Decreased foot clearance, L Decreased foot clearance Gait Assistance: Min assist (+2) Assistive Device: Rolling walker Gait Distance: 15 ft Limiting Factors to Gait: Fatigue, Weakness, Decreased safety, Other (comment) (pt c/o blurred vision and dizziness) Other: Pt ambulates with unsteady cristo and required physical assist to navigate doorway to bathroom. Balance Sitting Balance: Static: Good Sitting Balance: Dynamic: Fair ((+)) Standing Balance: Static: Fair Standing Balance: Dynamic: Fair ((-)) Other: Pt able to sit EOB unsupported but benefits from BUE support on RW while ambulating RUE Assessment: (see OT eval) LUE Assessment: (see OT eval) RLE Assessment: (grossly 4-/5) LLE Assessment: (grossly 4-/5) Activity Tolerance Endurance: Tolerates <30 minutes activity WITHOUT vital sign changes Other: Activity limited due to pt's irritation Plan Physical Therapy Care Plan Physical Therapy Care Plan (Active) Template: PT - Physical Therapy Problem: Activity Tolerance Dates: Start: 12/05/24 Disciplines: PT Goal: Tolerate > 30 minutes of activity WITH rest breaks Dates: Start: 12/05/24 Expected End: 12/22/24 Description: To improve overall strength and endurance for functional mobility. Disciplines: PT Problem: Bed Mobility Dates: Start: 12/05/24 Disciplines: PT Goal: Patient will perform bed mobility with Modified Garrett Dates: Start: 12/05/24 Expected End: 12/22/24 Description: Goal Description: Disciplines: PT Problem: Gait Dates: Start: 12/05/24 Disciplines: PT Goal: Patient will perform gait with Stand By Assist Dates: Start: 12/05/24 Expected End: 12/22/24 Description: With__RW__,_150___feet for safe household ambulation Goal Description: Disciplines: PT Problem: Standing Balance Dates: Start: 12/05/24 Disciplines: PT Goal: Improve balance to good Dates: Start: 12/05/24 Expected End: 12/22/24 Description: With use of AD to reduce fall risk during ambulation Disciplines: PT Problem: Strength Dates: Start: 12/05/24 Disciplines: PT Goal: Improve strength Dates: Start: 12/05/24 Expected End: 12/22/24 Description: Pt will complete 15 reps AROM BLE exercises to facilitate increased independence with transfers Disciplines: PT Problem: Transfers Dates: Start: 12/05/24 Disciplines: PT Goal: Patient will perform transfers with Stand By Assist Dates: Start: 12/05/24 Expected End: 12/22/24 Description: Goal Description: Disciplines: PT Physical Therapy Care Plan (Resolved) There are no resolved problems. Principal Problem: Sudden loss of vision Active Problems: Hyperosmolar hyperglycemic state (HHS) ([facility]) SOLO (acute kidney injury) HHS (hypothenar hammer syndrome) Ongoing Assessment for Discharge Needs Reviewed discharge milestones and patient needs related to discharge plan. Current estimated discharge date of Dec 07, 2024 has been reviewed by treatment team. Ongoing Assessment for Discharge Needs Flowsheet Row Most Recent Value Services Requested Patient expects to be discharged to: home vs home with home care Does the patient wish to have family/friend/caregiver involved in their discharge planning? No, the patient does not wish to have family/friend/caregiver involved in their discharge planning Discharge Disposition Home with home health services Patient choice offered Yes List Provided Yes [facility] List Provided Home Care Per RN during discharge transition rounds, barriers to discharge are: PT/OT charis, needs to follow up with endocinologist, and new PCP appt was made by [facility]. . Discharge Plan: Home with Home care. CN met with patient. Patient provided choices for Home care CN tasked to send referrals to [address] and [facility] home care. Patient stated she lives on the first floor of her daughter's home off the dining room and her son lives in the basement. Lapping Machine Set Up Operator will continue to follow for any discharge needs. - Crista Leung RN 12/05/24 11:52 AM Addendum: PT/OT rec SNF. CN met with patient and discussed therapy recommendation. Patient stated NO to SNF option. [address] is possibly accepting for home care. Waiting on final decision from [address] Patient insists she lives on the first floor and her son is the one who lives In the basement bedroom. CN tried to call daughter. - Crista Leung RN 12/05/24 1:04 PM Blood sugars have stablized and patient will be discharged today.. CN met with patient to discuss that [address] home care could accept referral and patient stated she will have to Call Medicaid provider for transport. CN stayed to verify with Medicaid transport provider that the patient is discharging from [facility] going home, cab transport arranged for 4pm at enterance A. Nurse and attending physician notified . DC CRF completed and [facility] tasked to send DC orders to [address] Home care. - Crista Leung RN 12/05/24 3:35 PM Occupational Therapy Evaluation Discharge Recommendations for Safe Patient Transition Discharge Recommendations: Post acute - moderate Post Acute Moderate Rehab Needs: Recommend moderate intensity rehab, Tolerate 1-2 hrs of therapy 3-5 days/wk, Subacute or chronic functional impairment Current Impairments Informing Therapy Recommendation: Ambulation status/safety, Fall risk, ADL status, Endurance level 6 Clicks: Daily Activity Putting on and taking off regular lower body clothing?: A lot Bathing (including washing, rinsing, drying)?: A lot Toileting, which includes using toilet, bedpan or urinal?: A lot Putting on and taking off regular upper body clothing?: A little Taking care of personal grooming such as brushing teeth?: A little Eating meals?: None Scoring Daily Activity Raw Score: 16 [facility] G Code Modifier: CK Therapy Plan Need for skilled Occupational Therapy to address deficits in ADL independence and functional mobility due to a status decline resulting from B vision loss Pt admitted 12/02 from OSH with sudden onset vision loss B eyes. 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 Meningitis Sudden loss of vision 12/02/2024 Past Surgical History: Procedure Laterality Date CHOLECYSTECTOMY FOOT SURGERY Left HYSTERECTOMY LAPAROSCOPY PORT CLAVICLE RT OT Treatment/Interventions: ADL retraining, Functional transfer training, UE strengthening/ROM, Endurance training, Patient/family training, Equipment eval/education, Balance, Bed mobility, Compensatory technique education, Functional activities OT Frequency: 3-4days/week OT Duration: LOS Assessment Patient Assessment Therapy Problem List: Decreased balance, Decreased ADL status, Decreased endurance, Decreased high-level ADLs, Decreased mobility, Decreased safe judgement during ADL, Decreased self-care trans, Decreased UE strength Patient Response to Treatment: Tolerated evaluation without adverse reaction Mood/Affect: Flat (irritated) Rehab Prognosis: Good, With continued OT status post acute discharge Visit RN Communication: Yes Medical Record Reviewed: Yes OT Type of Visit: Evaluation Precautions Activity: early mobility pass- ok to see per RN Equipment: RW, gait belt, ex cath Telemetry/Entry Level Installation Technician: Yes Oxygen Used: room air Other: fall risk, blurry vision B eyes, bed alarm Pain Assessment Pain Assessment: 0-10 Pain Score: 9 Pain Location: Throat Pain Intervention(s): Repositioned, Ambulation/increased activity Response to Interventions: Quiet Home Living Type of Home: House Home Layout: Two level Other : Attempted to obtain home information but pt very irritated with questions being asked. When asked if pt lives in a house, she reported No, I live in a cardboard box. YES I live in a house. Other home questions deferred as pt with increasing irritation. Per RN, pt lives in dtrs basement Prior Function Lives With: Daughter Other: Pt very irritated with home and PLOF questions ADL / IADL Eating Assistance: Independent Grooming Assistance: Contact guard assist Bathing/Showering Assistance: Mod assist Toilet/Commode Assistance: Mod assist UE Dressing Assistance: Min assist LE Dressing Assistance: Mod assist Footwear Assistance: Mod assist Other: ADL's deferred as pt with irritation Home Management - IADL Other: ADL's deferred as pt with irritation Hearing / Speech / Vision Hearing: Within Functional Limits Speech: Within Functional Limits Other: Blurry vision B eyes Cognition Overall Cognitive Status: Within Functional Limits Sensation Overall Sensation Status: Within Functional Limits Bed Mobility Supine to Sit: Stand by assist Sit to Supine: Min assist Other: SBA for supine to sit with HOB elevated. MIn assist to B LE's for sit to supine. Pt declined to sit in chair. Pt in bed at end of session with call light in reach Transfers Sit to Stand: Min assist Stand to Sit: Min assist Other: On initial transfer from bed, pt required min assist but was dizzy and sat back down on bed. On second transfers, min assist again and pt able to complete ambulation. cues for hand placement Gait Gait Assistance: Min assist (x2) Assistive Device: Rolling walker Gait Distance: 15 ft Limiting Factors to Gait: Fatigue, Weakness, Decreased safety, Other (comment) (dizziness; blurry vision) Other: Pt completed functional mobility within room short distance. Min assist x2 as pt unsteady and with blurry vision/dizziness. B UE support from Balance Balance Evaluation: Exceptions to Functional Limits Sitting Balance: Static: Good Sitting Balance: Dynamic: Fair (+) Standing Balance: Static: Fair Standing Balance: Dynamic: Fair (-) Other: Pt sat EOB in preparation for transfer. B UE support from RW RUE Assessment: (4/5 grossly) LUE Assessment: (4/5 grossly) Activity Tolerance Endurance: Tolerates <30 minutes activity WITHOUT vital sign changes Other: Activity limited due to pt's irritation Plan Occupational Therapy Care Plan Occupational Therapy Care Plan (Active) Template: OT - Occupational Therapy Problem: Activity Tolerance Dates: Start: 12/05/24 Disciplines: OT Goal: Tolerate > 30 minutes of activity WITH rest breaks Dates: Start: 12/05/24 Expected End: 01/02/25 Description: Goal Description: Disciplines: OT Problem: Bed Mobility Dates: Start: 12/05/24 Disciplines: OT Goal: Patient will perform bed mobility with Supervision Dates: Start: 12/05/24 Expected End: 01/02/25 Description: Goal Description: Disciplines: OT Problem: Functional Mobility Dates: Start: 12/05/24 Disciplines: OT Goal: Patient will perform functional mobility with Supervision Dates: Start: 12/05/24 Expected End: 01/02/25 Description: Goal Description: Disciplines: OT Problem: Other (Customize) Dates: Start: 12/05/24 Disciplines: OT Goal: Improve Dates: Start: 12/05/24 Expected End: 01/03/25 Description: Pt will complete ADL's with supervision or less Disciplines: OT Problem: Sitting Balance Dates: Start: 12/05/24 Disciplines: OT Goal: Improve balance to good Dates: Start: 12/05/24 Expected End: 01/02/25 Description: Static Dynamic Disciplines: OT Problem: Standing Balance Dates: Start: 12/05/24 Disciplines: OT Goal: Improve balance to good Dates: Start: 12/05/24 Expected End: 01/02/25 Description: Static Dynamic Disciplines: OT Problem: Strength Dates: Start: 12/05/24 Disciplines: OT Goal: Improve strength Dates: Start: 12/05/24 Expected End: 01/02/25 Description: Pt will show independence in performing BUE HEP for increased strength for completion of ADL's and IADL's. Disciplines: OT Problem: Toilet Transfers Dates: Start: 12/05/24 Disciplines: OT Goal: Patient will perform toilet transfers with Supervision Dates: Start: 12/05/24 Expected End: 01/02/25 Description: Goal Description: Disciplines: OT Problem: Transfers Dates: Start: 12/05/24 Disciplines: OT Goal: Patient will perform transfers with Supervision Dates: Start: 12/05/24 Expected End: 01/02/25 Description: Goal Description: Disciplines: OT Occupational Therapy Care Plan (Resolved) There are no resolved problems. Principal Problem: Sudden loss of vision Active Problems: Hyperosmolar hyperglycemic state (HHS) ([facility]) SOLO (acute kidney injury) HHS (hypothenar hammer syndrome) Problem: Pain Goal: Patient goal is pain score less than 4, able to rest, and participant in treatment plan as appropriate Description: INTERVENTIONS: 1. Encourage patient or legal regional sales representative to report early pain and ask for pain medicine when needed 2. Assess pain using appropriate pain scale and include the scale used when documenting 3. Administer analgesics based on type and severity of pain and evaluate response within appropriate time frame 4. Implement non-pharmacological measures as appropriate and evaluate response 5. Consider cultural and social influences on pain and pain management 6. Notify LIP if interventions ineffective or patient reports new pain 7. Monitor vital signs including pulse ox, end-tidal CO2 based on pain intervention 8. Reassess pain per policy 9. Teach patient or legal regional sales representative interventions for comforting Outcome: Progressing Note: Evaluation of progress towards goal: Patient notifies nursing staff of pain characteristics, location, duration, and severity. Patient reports 0/10 pain. Problem: Safety Goal: Patient will be injury free during hospitalization Description: INTERVENTIONS: 1. Assess patient's risk for falls and implement fall prevention plan of care per policy 2. Provide and maintain a safe environment 3. Proper use of double Identifiers 4. Medication administration using the 5 rights 5. Hand hygiene 6. Specimens are labeled at the bedside 7. Instruct patient/ patient regional sales representative about use of safety devices 8. Include patient/ patient regional sales representative in decisions related to safety Outcome: Progressing Note: Evaluation of progress towards goal: Patient remains injury-free amid hospitalization due to proper safety precautions. Rafael Chavira RN Problem: Glucose Imbalance Goal: Clinical indication of glucose balance is achieved Description: Patient's goal is: INTERVENTIONS 1. Monitor blood glucose levels as ordered 2. Administer medications as ordered 3. Notify physician of ineffective treatment plan Outcome: Not Progressing Note: Evaluation of progress towards goal: glucose imbalance present Problem: Urinary Incontinence Goal: Perineal skin integrity is maintained or improved Description: INTERVENTIONS 1. Assess genitourinary system, perineal skin, labs (urinalysis), and history of incontinence to include past management, aggravating, and alleviating factors 2. Keep skin clean and dry 3. Apply skin protectant 4. Develop skin care regimen 5. Provide privacy when changing patients incontinence device to maintain their dignity 6. Consider placing an indwelling catheter 7. Collaborate with interdisciplinary team and initiate plans and interventions as needed Outcome: Not Progressing Note: Evaluation of progress towards goal: Patient insisted on using external catheter instead of ambulating to bathroom; perineal skin is maintained Problem: Potential for Compromised Skin Integrity Goal: Skin integrity is maintained or improved Description: Patient's goal is: INTERVENTIONS 1. Perform initial skin assessment on admission and as needed 2. Turn patient every 2 hours and PRN 3. Relieve pressure to bony prominences 4. Avoid shearing 5. Keep skin clean and dry 6. Alternate a full bath with partial baths for elderly 7. Apply lotion/moisturizer on skin 8. Monitor patient's hygiene practices 9. Float heels 10. Collaborate with interdisciplinary team and initiate plans and interventions as needed Outcome: Progressing Note: Evaluation of progress towards goal: skin integrity is maintained Problem: Moderate - High Risk Fall Score Description: Fried Fall Score of =/> 25 or indicated by [facility] Rehab Assessment Goal: Patient should be free from fall Description: Interventions: 1. [place] to environment 2. Hourly rounds addressing the 4 P's (Pain, Positioning, Possessions, Potty) 3. Clear area of hazards (spills, clutter, electrical cords, unnecessary equipment) 4. Place equipment (bed & TV controls, call light, phone, urinal) within reach 5. Encourage patient to wear glasses and hearing aides as appropriate 6. Maintain bed in lowest position 7. Lock wheels on bed/wheelchair 8. Provide adequate lighting, including night light 9. Assess need for additional bedding, food/fluids, pain med's prior to sleep/routinely 10. Provide gripper slippers or personal non-skid footwear 11. Teach patient and patient regional sales representative to maintain environment for safety and engage in all aspects of fall prevention program 12. Remind patient to call for help before getting out of bed 13. Initiate bed/chair/exit alarms supportive devices as appropriate, (chair wedge, no-skid floor mat, raised edge mattress, hip protectors) 14. Locate patient bed assignment for optimal visualization 15. Evaluate and identify Safe Patient Handling Equipment needs 16. Provide supervision when out of bed or chair 17. Utilize gait belt as needed to assist with ambulation 18. Place adaptive equipment (cane, walker) within reach 19. Request patient regional sales representative bring adaptive equipment/mobility aids from home or obtain and provide as needed 20. Consult pharmacy regarding effects of med's affecting mobility, cognition, and alternatives 21. Obtain physician order for PT if risk factors associated with mobility are present 22. Obtain physician order for OT as appropriate 23. Utilize diversional activities 24. Educate patient and patient regional sales representative how to maintain a safe environment during visitation times (notify nurse prior to leaving bedside) 25. Consider appropriateness of medical or non-medical office receptionist 26. Set up voiding schedule as appropriate (every 2 hours) Outcome: Progressing Note: Evaluation of progress towards goal: Bed locked and lowered to lowest setting. Call greco within reach, personal items within reach. Problem: Pain Goal: Patient goal is pain score less than 4, able to rest, and participant in treatment plan as appropriate Description: INTERVENTIONS: 1. Encourage patient or legal regional sales representative to report early pain and ask for pain medicine when needed 2. Assess pain using appropriate pain scale and include the scale used when documenting 3. Administer analgesics based on type and severity of pain and evaluate response within appropriate time frame 4. Implement non-pharmacological measures as appropriate and evaluate response 5. Consider cultural and social influences on pain and pain management 6. Notify LIP if interventions ineffective or patient reports new pain 7. Monitor vital signs including pulse ox, end-tidal CO2 based on pain intervention 8. Reassess pain per policy 9. Teach patient or legal regional sales representative interventions for comforting Outcome: Progressing Note: Evaluation of progress towards goal: Patient able to rate pain on a scale of 1-10. Prn meds available. Problem: Safety Goal: Patient will be injury free during hospitalization Description: INTERVENTIONS: 1. Assess patient's risk for falls and implement fall prevention plan of care per policy 2. Provide and maintain a safe environment 3. Proper use of double Identifiers 4. Medication administration using the 5 rights 5. Hand hygiene 6. Specimens are labeled at the bedside 7. Instruct patient/ patient regional sales representative about use of safety devices 8. Include patient/ patient regional sales representative in decisions related to safety Outcome: Progressing Note: Evaluation of progress towards goal: Medication administered using 5 rights; dual identifiers used with each patient interaction, and fall risks interventions implemented to prevent safety issues Problem: Infection Goal: Absence of infection during hospitalization Description: INTERVENTIONS 1. Assess and monitor for signs and symptoms of infection. 2. Monitor lab/diagnostic results. 3. Monitor all insertion sites i.e., indwelling lines, tubes and drains. 4. Monitor endotracheal (as able) and nasal secretions for changes in amount and color. 5. Administer medications as ordered. 6. Instruct and encourage patient and family to use good hand hygiene technique. 7. Identify and instruct patient/patient regional sales representative in use of appropriate isolation precautions for identified infection/symptoms. 8. Provide and discuss with patient/patient regional sales representative on educational MDRO sheet. 9. Encourage and monitor nutritional status daily and consult manager cable if indicated. 10. Implement neutropenic guidelines as needed. Outcome: Progressing Note: Evaluation of progress towards goal: Patient has no current signs and symptoms of infection; monitoring vitals and labs Problem: Knowledge Deficit Goal: Patient/patient regional sales representative demonstrates understanding of disease process, treatment plan, medications, and discharge instructions Description: INTERVENTIONS 1. Complete learning assessment and assess knowledge base 2. Provide teaching at level of understanding 3. Provide teaching via preferred learning method(s) Outcome: Progressing Note: Evaluation of progress towards goal: Patient verbalizes understanding of treatment plan, medications, and discharge plans. DISCHARGE PLANNING NOTE Dec 07, 2024 10:00 AM (Arrive by 9:45 AM) New Patient with [facility] ([place] [address]) [address] [place] [address] D [facility] [id number] Images from the original note were not included. Initial Assessment Initial Assessment Flowsheet Row Most Recent Value Patient Information Initial Pre-Hospitalization Assessment Completed? Completed Primary Caregiver Self Support System Children Discharge Planning Living Arrangements Adult Child(dell), Private Residence Assistance Needed mild adls Type of Residence House Private Residence 2 story Home Care Services No Stressors Income Information Income Information Unemployed IP Hunger/Food Insecurity Screening Within the past 12 months we worried whether our food would run out before we got money to buy more. Never True Within the past 12 months the food we bought just didn't last and we didn't have money to get more. Never True Hunger Screening Complete? Yes Pt. Eligible for Food / Voucher No Caregiver/Family Member Caregiver/Family Member daughter Caregiver/Family Member Involved with Current Plan of Care No Caregiver/Support System Limitations Patient/Caregiver Goals Patient/Caregiver Goals Home with Home Care Community Provider Referral Services Requested Patient expects to be discharged to: home vs home with home care Does the patient wish to have family/friend/caregiver involved in their discharge planning? No, the patient does not wish to have family/friend/caregiver involved in their discharge planning Discharge Disposition Home with home health services Patient choice offered Yes List Provided Yes CarePort List Provided Home Care [employer] met with patient, introduced self, and explained role. Patient educated on safe discharge plan. 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 Medical equipment patient used prior to admission includes: Cane. Patient denies need for transportation/ food/ prescription medication assistance resources. Patient's caregiver has been assessed to determine readiness, skills, capabilities, and resources to provide post hospital care. Caregiver's pre-stroke responsibilities include patient lives with her daughter. Caregiver's personal limitations include patient states dtr stays upstairs mostly, but does not work. Other than named caregiver, other support system includes patient would like to be set up with home care agency. . Caregiver is willing both physically and emotionally to provide care patient will require. Caregiver is prepared to provide skills needed to assist with patient's personal care. Discharge home and needed durable medical equipment has been assessed and obtained. Financial, food, and transportation needs have been assessed and resources provided if needed. Patient's need for ongoing services have been assessed and resources provided. Discharge plan home with [facility]. PCP: No primary care provider on file. Pharmacy:[facility] PCP and pharmacy confirmed with patient. CN offered to assist with follow up appointment arrangements; patient agreeable, tasked appointment to [facility]. No primary care provider on file. added to Follow Up Providers for Summary of Care communication. Per patient self-report: Drug use: denies Smokinppd ETOH Use: denies Current discharge plan is: Home with daughter support and home care services. Choice list given for home care agencies. Tasked [facility] to assist with finding patient new PCP. Services Requested: Services Requested Patient expects to be discharged to:: home vs home with home care Does the patient wish to have family/friend/caregiver involved in their discharge planning?: No, the patient does not wish to have family/friend/caregiver involved in their discharge planning Discharge Disposition: Home with home health services Patient choice offered: Yes List Provided: Yes CarePort List Provided: Home Care Goals: Goals <enter goal here> (pt-stated) Evaluation of progress towards goal: home with [facility] Return Home (pt-stated) Evaluation of progress towards goal: safe discharge to [facility] with Home Care and daughter, friend support Will continue to follow as plan of care develops. CN discussed benefits and importance of medication compliance and follow ups. Please feel free to reach out for any discharge planning questions. - Ezra Will RN 12/04/24 12:42 PM Problem: Glucose Imbalance Goal: Clinical indication of glucose balance is achieved Description: Patient's goal is: INTERVENTIONS 1. Monitor blood glucose levels as ordered 2. Administer medications as ordered 3. Notify physician of ineffective treatment plan Outcome: Progressing Note: Evaluation of progress towards goal: pt off insulin drip, continue education and s/s coverage blood glucose improved but still elevated Problem: Glucose Imbalance Goal: Clinical indication of glucose balance is achieved Description: Patient's goal is: INTERVENTIONS 1. Monitor blood glucose levels as ordered 2. Administer medications as ordered 3. Notify physician of ineffective treatment plan Outcome: Progressing Note: Evaluation of progress towards goal: Goal: Patient's discharge needs are met Description: Patient's goal is: INTERVENTIONS 1. Assess patient for self-management skills 2. Encourage participation in diabetes management 3. Identify potential discharge barriers on admission and throughout hospital stay 4. Involve patient/S.O. in discharge planning process 5. Communicate referral to hand cooper helper as appropriate 6. Communicate referral to manager cable as appropriate 7. Collaborate with case management/social organization professor for discharge needs Outcome: Progressing Note: Evaluation of progress towards goal: [facility] Transfer Accept Note I have received a request for transfer of primary service for this patient from the neurology team. Clinical handoff report was given. [facility] will assume care as primary team of this patient starting 12/04/24 at 7:00 am. LIANNE MCCORMICK MD 12/03/2024 Problem: Glucose Imbalance Goal: Clinical indication of glucose balance is achieved Description: Patient's goal is: INTERVENTIONS 1. Monitor blood glucose levels as ordered 2. Administer medications as ordered 3. Notify physician of ineffective treatment plan Outcome: Progressing Note: Evaluation of progress towards goal: started on insulin drip Goal: Patient's discharge needs are met Description: Patient's goal is: INTERVENTIONS 1. Assess patient for self-management skills 2. Encourage participation in diabetes management 3. Identify potential discharge barriers on admission and throughout hospital stay 4. Involve patient/S.O. in discharge planning process 5. Communicate referral to hand cooper helper as appropriate 6. Communicate referral to manager cable as appropriate 7. Collaborate with case management/social organization professor for discharge needs Note: Evaluation of progress towards goal: pt request to meet dialysis social worker documented in this encounter [facility] 12-05-2024 Hospital course Narrative Images from the original note were not included. [facility] Medicine Discharge Summary Patient Name: Addie Jean Baptiste : 1975 PCP: No primary care provider on file. DATE OF ADMISSION: 12/02/2024 DATE OF DISCHARGE: 12/05/2024 PRIMARY DISCHARGE DIAGNOSIS: Acute onset bilateral vision loss secondary to hyperglycemia SECONDARY DISCHARGE DIAGNOSIS: Uncontrolled type 2 diabetes mellitus Hyperglycemia in setting of above Diabetic retinopathy Plex-yo-srgpnome diabetic macular edema right eye Seizure-like episode SOLO, resolved Elevated anion gap, resolved CONSULTANTS: Neurology, Ophthalmology HPI/HOSPITAL COURSE SUMMARY: Addie Jean Baptiste is a 49 y.o. female who presented to the hospital on 12/03 with chief complaint of vision loss. She was evaluated by the Neurology team. CT brain was negative, CTA head and neck was refused by the patient. She was evaluated by ophthalmology who thought her vision loss was secondary to hyperglycemic refractive error and that she should returned to baseline in 2-4 weeks. She needs to follow up closely with ophthalmology. Additionally, should follow up closely with her outpatient biochemical development engineer and neurologist. Patient was evaluated by [facility] recommended retirement facility, patient refusing at this time. Therefore we will be discharged home with home care. Blood glucose under good control at time of discharge. DISCHARGE INSTRUCTIONS: Disposition: discharge to home with home care Condition: good Activity: as tolerated Diet: Adult diet Regular Texture; Consistent Carb 150 grams (1200 kcal) Code Status: full FOLLOW-UP: Follow up with primary care provider within 1-2 weeks of discharge Follow up with Endocrinology, Neurology, Ophthalmology Referrals and Follow-ups to Schedule [facility] ([facility]) - [place], [place] Disease States/Services: Diabetes Adherence & Access Transitions of Care Weight Management Anticoagulation - Please use [facility]ication [facility] Warfarin or Non-Coumadin referrals The patient was seen and examined on the day of discharge. All questions answered to patient's satisfaction. The patient was counseled regarding impressions, instructions for management, and to seek medical attention for new, worsening, or unimproved symptoms. Physical Exam: BP 149/86 Pulse 82 Temp 37.1 C (98.7 F) (Oral) Resp 14 Ht 157.5 cm (5' 2.01 ) Wt 111.4 kg (245 lb 9.5 oz) SpO2 94% BMI 44.91 kg/m General appearance: obese,alert, oriented, in no acute distress Skin: warm and dry to touch HEENT: atraumatic, EOM's intact, sclera non icteric, no erythema, no exudate Neck: no JVD, neck supple, no lymphadenopathy Lungs: clear to ausculation bilaterally, no use of accessory muscles Heart: RRR, normal S1 and S2, no murmurs Abdomen: soft, non-distended, non-tender, bowel sounds normal Extremities: no edema Neurologic: no focal motor or sensory deficits Psychiatric: appropriate affect Intake/output: Net IO Since Admission: 1,825.13 mL [12/05/24 1459] Labs: Results from last 7 days Lab Units 12/04/24 0459 12/03/24 1000 12/03/24 0525 WBC x10E9/L 5.3 7.7 7.1 HEMOGLOBIN g/dL 11.2* 11.7 13.2 HEMATOCRIT % 32.7* 34.1* 38.7 PLATELETS X10E9/L 235 244 234 Results from last 7 days Lab Units 12/03/24 0955 APTT sec 25* Results from last 7 days Lab Units 12/05/24 0543 12/04/24 0459 12/03/24 2356 12/03/24 1000 12/03/24 0525 SODIUM mmol/L 139 139 136 < > 133* POTASSIUM mmol/L 4.6 4.3 4.4 < > 4.3 CHLORIDE mmol/L 111* 111* 110* < > 101 CO2 mmol/L 22 20* 20* < > 21* BUN mg/dL 17 15 -- -- 21 CREATININE mg/dL 0.95 0.89 -- -- 1.40* CALCIUM mg/dL 8.4* 7.6* -- -- 8.1* < > = values in this interval not displayed. Results from last 7 days Lab Units 12/03/24 0525 ALBUMIN g/dL 3.4 PROTEIN TOTAL g/dL 6.0 ALT U/L 10 AST U/L 11 ALK PHOS U/L 104 Results from last 7 days Lab Units 12/05/24 1214 12/05/24 0830 12/05/24 0543 BEDSIDE GLUCOSE mg/dL 244* 265* -- GLUCOSE mg/dL -- -- 225* Lab Results Component Value Date HGBA1C 13.6 (H) 12/03/2024 No results found for: WBCU , SPECIFICGRA , LEUKOCYTE , NITRITEN , PHNUR , PROTEINNUR , KETONESNUR , UROBILINOGEN , BLOODHGBNU Imaging No results found. Last Echo Echo complete W/3D Recon Independ wkstn Result Date: 10/02/[address] [facility] Heart Station [address] [place] [address] [phone] (fax) Echocardiogram-[facility] Name: ADDIE ORGAN Study Date: 10/01/2024 03:03 PM B/P: 127 mmHg/111 mmHg HR: Date of : 1975 Location: [facility] Height: 62 in. Age: 49 year(s) Patient Room: [facility] Weight: 297 lb. Gender: Female Patient Status: [...] versus fat pad. Procedure Staff Reading Group: [facility] Treasury Associate: Varsha Hyde RDCS Ordering Physician: JUAN C CRABTREE Cultures Microbiology Results No results found for the last 168 hours. DISCHARGE MEDICATIONS: Your medication list START taking these medications Instructions Last Dose Given Next Dose Due aspirin 81 mg atorvastatin 80 mg tablet Commonly known as: LIPITOR Take 1 tablet (80 mg total) by mouth in the morning. insulin lispro 100 unit/mL insulin pen Commonly known as: HumaLOG Replaces: insulin lispro 100 unit/mL injection Inject 2-10 Units under the skin 4 (four) times a day with meals and nightly. levETIRAcetam 750 mg tablet Commonly known as: KEPPRA metFORMIN 1000 MG (MOD) 24 hr tablet Commonly known as: GLUMETZA pen needle, diabetic 32 gauge x 5/32 needle Commonly known as: BD ULTRA-FINE JOHAN PEN NEEDLE Use with insulin injections CHANGE how you take these medications Instructions Last Dose Given Next Dose Due insulin glargine 100 unit/mL injection Commonly known as: LANTUS What changed: how much to take when to take this Inject 0.3 mL (30 Units total) under the skin in the morning and 0.3 mL (30 Units total) before bedtime. CONTINUE taking these medications Instructions Last Dose Given Next Dose Due oxyCODONE-acetaminophen 5-325 mg per tablet Commonly known as: PERCOCET pregabalin 100 mg capsule Commonly known as: LYRICA QUEtiapine 200 mg tablet Commonly known as: SEROquel tiZANidine 4 mg tablet Commonly known as: ZANAFLEX STOP taking these medications insulin lispro 100 unit/mL injection Commonly known as: HumaLOG Replaced by: insulin lispro 100 unit/mL insulin pen ASK your doctor about these medications Instructions Last Dose Given Next Dose Due levothyroxine 75 MCG tablet Commonly known as: SYNTHROID, LEVOTHROID lithium carbonate 300 mg tablet lithium 600 MG capsule Where to Get Your Medications These medications were sent to [facility]/pharmacy #[id number] AT [place] [address] insulin glargine 100 unit/mL injection insulin lispro 100 unit/mL insulin pen pen needle, diabetic 32 gauge x 5/32 needle 37 minutes were spent on discharging this patient. Elda Aguirre MD documented in this encounter [facility] 12-05-2024 Hospital Discharge instructions Elda Aguirre MD - 12/05/2024 2:51 PM EDT If you have any questions regarding care after discharge please call your doctor. Please seek medical attention for symptoms that are worsening or not improving. If you are experiencing an emergency, call [phone] Follow up with your primary care physician within 1-2 weeks of discharge please follow up with Neurology and Ophthalmology. Please follow up with her outpatient biochemical development engineer Please follow your medication reconciliation carefully for new medications, changes in doses or medications that were stopped. If new medications are prescribed at discharge you can find further information about these medications in your discharge paperwork. Rick Thomas - 12/04/2024 3:50 PM EDT YOUR SCHEDULED APPOINTMENTS Dec 07, 2024 10:00 AM (Arrive by 9:45 AM) New Patient with Lindsay Johnson APRN-BEATRIZ [facility] ([place] [address]) [address] [place] [phone] Pt. should bring the following to appointment; Discharge paperwork Picture ID, Insurance card, co-pay, and all current medications in their bottles. Please provide a 24 hour notice for cancellation. Failure to do so will result in the practice declining to see pt. in the future. If you have insurance copay you must bring with you to the appointment. Please arrive about 15 minutes prior to appointment for check-in/registration. For NEW PATIENT APPOINTMENTS, please arrive 30 minutes early to complete new patient paperwork. For NEW patients, MD will not prescribe medical terminologist pain medication. The following attachments cannot be sent through Care Everywhere.Checking your blood sugar at home ([place])Insulin Lispro, ADULT ([place])Insulin Glargine, ADULT ([place])Aspirin, ADULT ([place])Atorvastatin, ADULT ([place])Metformin, ADULT ([place])Levetiracetam, ADULT ([place])documented in this encounter [facility] 12-05-2024 Progress note Formatting of t his note might be different from the original. DISCHARGE PLANNING NOTE Referral to [facility]- P# ; F# , [address] [facility] [place] (P# ; F# ) , [facility] - [facility] (P# ; F# ) [employer] [employer] [facility] 12-05-2024 Progress note Formatting of t his note is different from the original. Physical Therapy Evaluation Discharge Recommendations for Safe Patient Transition Discharge Recommendations: Post acute - moderate Post Acute Moderate Rehab Needs: Recommend moderate intensity rehab, Tolerate 1-2 hrs of therapy 3-5 days/wk, Subacute or chronic functional impairment Current Impairments Informing Therapy Recommendation: Ambulation status/safety, Fall risk, Endurance level Therapy Plan Need for skilled Physical Therapy to address deficits in functional mobility due to a status decline resulting from hospital admission 12/02/24 from OSH with sudden onset vision loss B eyes. 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 w/c or bedside chair)?: A lot To walk in hospital room?: A lot Climbing 3-5 steps with a railing?: Total Scoring 6 Clicks: Basic Mobility Raw Score: 14 [facility] G Code Modifier: CK PT Treatment/Interventions: Functional transfer training, LE strengthening/ROM, Endurance training, Patient/family training, Equipment eval/education, Balance, Bed mobility, Gait training, Functional activities PT Frequency: 4-5days/week PT Duration: LOS Assessment Patient Assessment Therapy Problem List: Decreased balance, Decreased endurance, Decreased mobility, Decreased safe judgement during ADL, Decreased LE strength Patient Response to Treatment: Tolerated evaluation without adverse reaction, Slow progress, decreased activity tolerance Mood/Affect: Flat (pt irritated with therapy team) Rehab Prognosis: Good, With continued PT status post acute discharge Visit RN Communication: Yes Medical Record Reviewed: Yes PT Type of Visit: Evaluation Precautions Activity: ealry mobility: pass ,ok per Rafael RN for PT eval Equipment: RW, gait belt, ex cath Telemetry/Entry Level Installation Technician: Yes Oxygen Used: room air Other: (S) fall risk, blurry vision B eyes, bed alarm Pain Assessment Pain Assessment: 0-10 Pain Score: 9 Pain Location: Throat Pain Intervention(s): Repositioned, Ambulation/increased activity Response to Interventions: Quiet Home Living Type of Home: House Home Layout: Two level Other : Pt became irritated with questions regarding home envirnonment, despite education on importance of being aware of any barriers to safe return home. Pt when asked if she lived in a house, pt responded, No, I live in a cardboard box. Yes I live in a house Remaining questions deferred due to pt's agitation. Prior Function Lives With: Daughter Other: Unable to obtain PLOF as pt continued to exhibit irritation with questions. Hearing / Speech / Vision Hearing: Within Functional Limits Speech: Within Functional Limits Current Vision: (pt c/o continued blurred vision) Cognition Overall Cognitive Status: Within Functional Limits Sensation Overall Sensation Status: Within Functional Limits Bed Mobility Supine to Sit: Stand by assist (with HOB elevated and use of bed rail) Sit to Supine: Min assist (to move BLE into bed) Other: Pt required increased time/effort to complete all phases of bed mobility. Transfers Sit to Stand: Min assist Stand to Sit: Min assist Other: Initial sit>stand attempt, pt exhibited sudden posterior LOB and returned to seated position at EOB. Second trial, pt was able to complete transfer without LOB. Gait Base of Support: Within Functional Limits Pattern: Decreased cristo, L Decreased heel strike, R Decreased heel strike, R Decreased foot clearance, L Decreased foot clearance Gait Assistance: Min assist (+2) Assistive Device: Rolling walker Gait Distance: 15 ft Limiting Factors to Gait: Fatigue, Weakness, Decreased safety, Other (comment) (pt c/o blurred vision and dizziness) Other: Pt ambulates with unsteady cristo and required physical assist to navigate doorway to bathroom. Balance Sitting Balance: Static: Good Sitting Balance: Dynamic: Fair ((+)) Standing Balance: Static: Fair Standing Balance: Dynamic: Fair ((-)) Other: Pt able to sit EOB unsupported but benefits from BUE support on RW while ambulating RUE Assessment: (see OT eval) LUE Assessment: (see OT eval) RLE Assessment: (grossly 4-/5) LLE Assessment: (grossly 4-/5) Activity Tolerance Endurance: Tolerates <30 minutes activity WITHOUT vital sign changes Other: Activity limited due to pt's irritation Plan Physical Therapy Care Plan Physical Therapy Care Plan (Active) Template: PT - Physical Therapy Problem: Activity Tolerance Dates: Start: 12/05/24 Disciplines: PT Goal: Tolerate > 30 minutes of activity WITH rest breaks Dates: Start: 12/05/24 Expected End: 12/22/24 Description: To improve overall strength and endurance for functional mobility. Disciplines: PT Problem: Bed Mobility Dates: Start: 12/05/24 Disciplines: PT Goal: Patient will perform bed mobility with Modified Garrett Dates: Start: 12/05/24 Expected End: 12/22/24 Description: Goal Description: Disciplines: PT Problem: Gait Dates: Start: 12/05/24 Disciplines: PT Goal: Patient will perform gait with Stand By Assist Dates: Start: 12/05/24 Expected End: 12/22/24 Description: With__RW__,_150___feet for safe household ambulation Goal Description: Disciplines: PT Problem: Standing Balance Dates: Start: 12/05/24 Disciplines: PT Goal: Improve balance to good Dates: Start: 12/05/24 Expected End: 12/22/24 Description: With use of AD to reduce fall risk during ambulation Disciplines: PT Problem: Strength Dates: Start: 12/05/24 Disciplines: PT Goal: Improve strength Dates: Start: 12/05/24 Expected End: 12/22/24 Description: Pt will complete 15 reps AROM BLE exercises to facilitate increased independence with transfers Disciplines: PT Problem: Transfers Dates: Start: 12/05/24 Disciplines: PT Goal: Patient will perform transfers with Stand By Assist Dates: Start: 12/05/24 Expected End: 12/22/24 Description: Goal Description: Disciplines: PT Physical Therapy Care Plan (Resolved) There are no resolved problems. Principal Problem: Sudden loss of vision Active Problems: Hyperosmolar hyperglycemic state (HHS) ([facility] SOLO (acute kidney injury) HHS (hypothenar hammer syndrome) [facility] [employer] [facility] 12-05-2024 Progress note Formatting of t his note is different from the original. Ongoing Assessment for Discharge Needs Reviewed discharge milestones and patient needs related to discharge plan. Current estimated discharge date of Dec 07, 2024 has been reviewed by treatment team. Ongoing Assessment for Discharge Needs Flowsheet Row Most Recent Value Services Requested Patient expects to be discharged to: home vs home with home care Does the patient wish to have family/friend/caregiver involved in their discharge planning? No, the patient does not wish to have family/friend/caregiver involved in their discharge planning Discharge Disposition Home with home health services Patient choice offered Yes List Provided Yes [facility] List Provided Home Care Per RN during discharge transition rounds, barriers to discharge are: PT/OT charis, needs to follow up with endocinologist, and new PCP appt was made by [facility]. . Discharge Plan: Home with Home care. CN met with patient. Patient provided choices for Home care [facility] tasked to send referrals to [address] and [facility] care. Patient stated she lives on the first floor of her daughter's home off the dining room and her son lives in the basement. Lapping Machine Set Up Operator will continue to follow for any discharge needs. - Crista Leung RN 12/05/24 11:52 AM Addendum: PT/OT rec SNF. CN met with patient and discussed therapy recommendation. Patient stated NO to SNF option. [address] is possibly accepting for home care. Waiting on final decision from [address] Patient insists she lives on the first floor and her son is the one who lives In the basement bedroom. CN tried to call daughter. - Crista Leung RN 12/05/24 1:04 PM Blood sugars have stablized and patient will be discharged today.. CN met with patient to discuss that [address] home care could accept referral and patient stated she will have to Call Medicaid provider for transport. CN stayed to verify with Medicaid transport provider that the patient is discharging from [facility] going home, cab transport arranged for 4pm at enterance A. Nurse and attending physician notified . DC CRF completed and [facility] tasked to send DC orders to [address] care. - Crista Leung RN 12/05/24 3:35 PM [facility] Progress note Formatting of t his note is different from the original. Occupational Therapy Evaluation Discharge Recommendations for Safe Patient Transition Discharge Recommendations: Post acute - moderate Post Acute Moderate Rehab Needs: Recommend moderate intensity rehab, Tolerate 1-2 hrs of therapy 3-5 days/wk, Subacute or chronic functional impairment Current Impairments Informing Therapy Recommendation: Ambulation status/safety, Fall risk, ADL status, Endurance level 6 Clicks: Daily Activity Putting on and taking off regular lower body clothing?: A lot Bathing (including washing, rinsing, drying)?: A lot Toileting, which includes using toilet, bedpan or urinal?: A lot Putting on and taking off regular upper body clothing?: A little Taking care of personal grooming such as brushing teeth?: A little Eating meals?: None Scoring Daily Activity Raw Score: 16 [facility] G Code Modifier: CK Therapy Plan Need for skilled Occupational Therapy to address deficits in ADL independence and functional mobility due to a status decline resulting from B vision loss Pt admitted 12/02 from OSH with sudden onset vision loss B eyes. 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 Meningitis Sudden loss of vision 12/02/2024 Past Surgical History: Procedure Laterality Date CHOLECYSTECTOMY FOOT SURGERY Left HYSTERECTOMY LAPAROSCOPY PORT CLAVICLE RT OT Treatment/Interventions: ADL retraining, Functional transfer training, UE strengthening/ROM, Endurance training, Patient/family training, Equipment eval/education, Balance, Bed mobility, Compensatory technique education, Functional activities OT Frequency: 3-4days/week OT Duration: LOS Assessment Patient Assessment Therapy Problem List: Decreased balance, Decreased ADL status, Decreased endurance, Decreased high-level ADLs, Decreased mobility, Decreased safe judgement during ADL, Decreased self-care trans, Decreased UE strength Patient Response to Treatment: Tolerated evaluation without adverse reaction Mood/Affect: Flat (irritated) Rehab Prognosis: Good, With continued OT status post acute discharge Visit RN Communication: Yes Medical Record Reviewed: Yes OT Type of Visit: Evaluation Precautions Activity: early mobility pass- ok to see per RN Equipment: RW, gait belt, ex cath Telemetry/Entry Level Installation Technician: Yes Oxygen Used: room air Other: fall risk, blurry vision B eyes, bed alarm Pain Assessment Pain Assessment: 0-10 Pain Score: 9 Pain Location: Throat Pain Intervention(s): Repositioned, Ambulation/increased activity Response to Interventions: Quiet Home Living Type of Home: House Home Layout: Two level Other : Attempted to obtain home information but pt very irritated with questions being asked. When asked if pt lives in a house, she reported No, I live in a cardboard box. YES I live in a house. Other home questions deferred as pt with increasing irritation. Per RN, pt lives in dtrs basement Prior Function Lives With: Daughter Other: Pt very irritated with home and PLOF questions ADL / IADL Eating Assistance: Independent Grooming Assistance: Contact guard assist Bathing/Showering Assistance: Mod assist Toilet/Commode Assistance: Mod assist UE Dressing Assistance: Min assist LE Dressing Assistance: Mod assist Footwear Assistance: Mod assist Other: ADL's deferred as pt with irritation Home Management - IADL Other: ADL's deferred as pt with irritation Hearing / Speech / Vision Hearing: Within Functional Limits Speech: Within Functional Limits Other: Blurry vision B eyes Cognition Overall Cognitive Status: Within Functional Limits Sensation Overall Sensation Status: Within Functional Limits Bed Mobility Supine to Sit: Stand by assist Sit to Supine: Min assist Other: SBA for supine to sit with HOB elevated. MIn assist to B LE's for sit to supine. Pt declined to sit in chair. Pt in bed at end of session with call light in reach Transfers Sit to Stand: Min assist Stand to Sit: Min assist Other: On initial transfer from bed, pt required min assist but was dizzy and sat back down on bed. On second transfers, min assist again and pt able to complete ambulation. cues for hand placement Gait Gait Assistance: Min assist (x2) Assistive Device: Rolling walker Gait Distance: 15 ft Limiting Factors to Gait: Fatigue, Weakness, Decreased safety, Other (comment) (dizziness; blurry vision) Other: Pt completed functional mobility within room short distance. Min assist x2 as pt unsteady and with blurry vision/dizziness. B UE support from RW Balance Balance Evaluation: Exceptions to Functional Limits Sitting Balance: Static: Good Sitting Balance: Dynamic: Fair (+) Standing Balance: Static: Fair Standing Balance: Dynamic: Fair (-) Other: Pt sat EOB in preparation for transfer. B UE support from RW RUE Assessment: (4/5 grossly) LUE Assessment: (4/5 grossly) Activity Tolerance Endurance: Tolerates <30 minutes activity WITHOUT vital sign changes Other: Activity limited due to pt's irritation Plan Occupational Therapy Care Plan Occupational Therapy Care Plan (Active) Template: OT - Occupational Therapy Problem: Activity Tolerance Dates: Start: 12/05/24 Disciplines: OT Goal: Tolerate > 30 minutes of activity WITH rest breaks Dates: Start: 12/05/24 Expected End: 01/02/25 Description: Goal Description: Disciplines: OT Problem: Bed Mobility Dates: Start: 12/05/24 Disciplines: OT Goal: Patient will perform bed mobility with Supervision Dates: Start: 12/05/24 Expected End: 01/02/25 Description: Goal Description: Disciplines: OT Problem: Functional Mobility Dates: Start: 12/05/24 Disciplines: OT Goal: Patient will perform functional mobility with Supervision Dates: Start: 12/05/24 Expected End: 01/02/25 Description: Goal Description: Disciplines: OT Problem: Other (Customize) Dates: Start: 12/05/24 Disciplines: OT Goal: Improve Dates: Start: 12/05/24 Expected End: 01/03/25 Description: Pt will complete ADL's with supervision or less Disciplines: OT Problem: Sitting Balance Dates: Start: 12/05/24 Disciplines: OT Goal: Improve balance to good Dates: Start: 12/05/24 Expected End: 01/02/25 Description: Static Dynamic Disciplines: OT Problem: Standing Balance Dates: Start: 12/05/24 Disciplines: OT Goal: Improve balance to good Dates: Start: 12/05/24 Expected End: 01/02/25 Description: Static Dynamic Disciplines: OT Problem: Strength Dates: Start: 12/05/24 Disciplines: OT Goal: Improve strength Dates: Start: 12/05/24 Expected End: 01/02/25 Description: Pt will show independence in performing BUE HEP for increased strength for completion of ADL's and IADL's. Disciplines: OT Problem: Toilet Transfers Dates: Start: 12/05/24 Disciplines: OT Goal: Patient will perform toilet transfers with Supervision Dates: Start: 12/05/24 Expected End: 01/02/25 Description: Goal Description: Disciplines: OT Problem: Transfers Dates: Start: 12/05/24 Disciplines: OT Goal: Patient will perform transfers with Supervision Dates: Start: 12/05/24 Expected End: 01/02/25 Description: Goal Description: Disciplines: OT Occupational Therapy Care Plan (Resolved) There are no resolved problems. Principal Problem: Sudden loss of vision Active Problems: Hyperosmolar hyperglycemic state (HHS) ([facility]) SOLO (acute kidney injury) HHS (hypothenar hammer syndrome) [facility] 12-05-2024 Plan of care note Problem: Pain Goal: Patient goal is pain score less than 4, able to rest, and participant in treatment plan as appropriate Description: INTERVENTIONS: 1. Encourage patient or legal regional sales representative to report early pain and ask for pain medicine when needed 2. Assess pain using appropriate pain scale and include the scale used when documenting 3. Administer analgesics based on type and severity of pain and evaluate response within appropriate time frame 4. Implement non-pharmacological measures as appropriate and evaluate response 5. Consider cultural and social influences on pain and pain management 6. Notify LIP if interventions ineffective or patient reports new pain 7. Monitor vital signs including pulse ox, end-tidal CO2 based on pain intervention 8. Reassess pain per policy 9. Teach patient or legal regional sales representative interventions for comforting Outcome: Progressing Note: Evaluation of progress towards goal: Patient notifies nursing staff of pain characteristics, location, duration, and severity. Patient reports 0/10 pain. Problem: Safety Goal: Patient will be injury free during hospitalization Description: INTERVENTIONS: 1. Assess patient's risk for falls and implement fall prevention plan of care per policy 2. Provide and maintain a safe environment 3. Proper use of double Identifiers 4. Medication administration using the 5 rights 5. Hand hygiene 6. Specimens are labeled at the bedside 7. Instruct patient/ patient regional sales representative about use of safety devices 8. Include patient/ patient regional sales representative in decisions related to safety Outcome: Progressing Note: Evaluation of progress towards goal: Patient remains injury-free amid hospitalization due to proper safety precautions. Rafael Chavira RN [facility] 12-05-2024 Plan of care note Problem: Glucose Imbalance Goal: Clinical indication of glucose balance is achieved Description: Patient's goal is: INTERVENTIONS 1. Monitor blood glucose levels as ordered 2. Administer medications as ordered 3. Notify physician of ineffective treatment plan Outcome: Not Progressing Note: Evaluation of progress towards goal: glucose imbalance present Problem: Urinary Incontinence Goal: Perineal skin integrity is maintained or improved Description: INTERVENTIONS 1. Assess genitourinary system, perineal skin, labs (urinalysis), and history of incontinence to include past management, aggravating, and alleviating factors 2. Keep skin clean and dry 3. Apply skin protectant 4. Develop skin care regimen 5. Provide privacy when changing patients incontinence device to maintain their dignity 6. Consider placing an indwelling catheter 7. Collaborate with interdisciplinary team and initiate plans and interventions as needed Outcome: Not Progressing Note: Evaluation of progress towards goal: Patient insisted on using external catheter instead of ambulating to bathroom; perineal skin is maintained Problem: Potential for Compromised Skin Integrity Goal: Skin integrity is maintained or improved Description: Patient's goal is: INTERVENTIONS 1. Perform initial skin assessment on admission and as needed 2. Turn patient every 2 hours and PRN 3. Relieve pressure to bony prominences 4. Avoid shearing 5. Keep skin clean and dry 6. Alternate a full bath with partial baths for elderly 7. Apply lotion/moisturizer on skin 8. Monitor patient's hygiene practices 9. Float heels 10. Collaborate with interdisciplinary team and initiate plans and interventions as needed Outcome: Progressing Note: Evaluation of progress towards goal: skin integrity is maintained Problem: Moderate - High Risk Fall Score Description: Fried Fall Score of =/> 25 or indicated by [facility] Rehab Assessment Goal: Patient should be free from fall Description: Interventions: 1. [place] to environment 2. Hourly rounds addressing the 4 P's (Pain, Positioning, Possessions, Potty) 3. Clear area of hazards (spills, clutter, electrical cords, unnecessary equipment) 4. Place equipment (bed & TV controls, call light, phone, urinal) within reach 5. Encourage patient to wear glasses and hearing aides as appropriate 6. Maintain bed in lowest position 7. Lock wheels on bed/wheelchair 8. Provide adequate lighting, including night light 9. Assess need for additional bedding, food/fluids, pain med's prior to sleep/routinely 10. Provide gripper slippers or personal non-skid footwear 11. Teach patient and patient regional sales representative to maintain environment for safety and engage in all aspects of fall prevention program 12. Remind patient to call for help before getting out of bed 13. Initiate bed/chair/exit alarms supportive devices as appropriate, (chair wedge, no-skid floor mat, raised edge mattress, hip protectors) 14. Locate patient bed assignment for optimal visualization 15. Evaluate and identify Safe Patient Handling Equipment needs 16. Provide supervision when out of bed or chair 17. Utilize gait belt as needed to assist with ambulation 18. Place adaptive equipment (cane, walker) within reach 19. Request patient regional sales representative bring adaptive equipment/mobility aids from home or obtain and provide as needed 20. Consult pharmacy regarding effects of med's affecting mobility, cognition, and alternatives 21. Obtain physician order for PT if risk factors associated with mobility are present 22. Obtain physician order for OT as appropriate 23. Utilize diversional activities 24. Educate patient and patient regional sales representative how to maintain a safe environment during visitation times (notify nurse prior to leaving bedside) 25. Consider appropriateness of medical or non-medical office receptionist 26. Set up voiding schedule as appropriate (every 2 hours) Outcome: Progressing Note: Evaluation of progress towards goal: Bed locked and lowered to lowest setting. Call greco within reach, personal items within reach. Problem: Pain Goal: Patient goal is pain score less than 4, able to rest, and participant in treatment plan as appropriate Description: INTERVENTIONS: 1. Encourage patient or legal regional sales representative to report early pain and ask for pain medicine when needed 2. Assess pain using appropriate pain scale and include the scale used when documenting 3. Administer analgesics based on type and severity of pain and evaluate response within appropriate time frame 4. Implement non-pharmacological measures as appropriate and evaluate response 5. Consider cultural and social influences on pain and pain management 6. Notify LIP if interventions ineffective or patient reports new pain 7. Monitor vital signs including pulse ox, end-tidal CO2 based on pain intervention 8. Reassess pain per policy 9. Teach patient or legal regional sales representative interventions for comforting Outcome: Progressing Note: Evaluation of progress towards goal: Patient able to rate pain on a scale of 1-10. Prn meds available. Problem: Safety Goal: Patient will be injury free during hospitalization Description: INTERVENTIONS: 1. Assess patient's risk for falls and implement fall prevention plan of care per policy 2. Provide and maintain a safe environment 3. Proper use of double Identifiers 4. Medication administration using the 5 rights 5. Hand hygiene 6. Specimens are labeled at the bedside 7. Instruct patient/ patient regional sales representative about use of safety devices 8. Include patient/ patient regional sales representative in decisions related to safety Outcome: Progressing Note: Evaluation of progress towards goal: Medication administered using 5 rights; dual identifiers used with each patient interaction, and fall risks interventions implemented to prevent safety issues Problem: Infection Goal: Absence of infection during hospitalization Description: INTERVENTIONS 1. Assess and monitor for signs and symptoms of infection. 2. Monitor lab/diagnostic results. 3. Monitor all insertion sites i.e., indwelling lines, tubes and drains. 4. Monitor endotracheal (as able) and nasal secretions for changes in amount and color. 5. Administer medications as ordered. 6. Instruct and encourage patient and family to use good hand hygiene technique. 7. Identify and instruct patient/patient regional sales representative in use of appropriate isolation precautions for identified infection/symptoms. 8. Provide and discuss with patient/patient regional sales representative on educational MDRO sheet. 9. Encourage and monitor nutritional status daily and consult manager cable if indicated. 10. Implement neutropenic guidelines as needed. Outcome: Progressing Note: Evaluation of progress towards goal: Patient has no current signs and symptoms of infection; monitoring vitals and labs Problem: Knowledge Deficit Goal: Patient/patient regional sales representative demonstrates understanding of disease process, treatment plan, medications, and discharge instructions Description: INTERVENTIONS 1. Complete learning assessment and assess knowledge base 2. Provide teaching at level of understanding 3. Provide teaching via preferred learning method(s) Outcome: Progressing Note: Evaluation of progress towards goal: Patient verbalizes understanding of treatment plan, medications, and discharge plans. [facility] 12-04-2024 Progress note Formatting of t his note is different from the original. DISCHARGE PLANNING NOTE Dec 07, 2024 10:00 AM (Arrive by 9:45 AM) New Patient with Lindsay Johnson, FIELD SERVICE COORDINATOR-USABILITY SPECIALIST [facility] ([facility]) [address] [place] [address] [address] [facility] [id number] [facility] 12-04-2024 History of Present illness Narrative Images from the original note were not included. [facility] [facility] Hospitalists Progress Note Subjective SUBJECTIVE No acute events reported overnight. Patient was seen and examined at bedside this morning. Endorsing she is still has some blurry vision this morning and she has a mildly sore throat with no other acute complaints. Objective OBJECTIVE Vital Signs: Temp: [36.3 C (97.3 F)-36.4 C (97.6 F)] 36.4 C (97.6 F) Pulse: [60-77] 77 Resp: [9-17] 17 BP: (93-132)/(57-72) 132/72 SpO2: [97 %-98 %] 98 % O2 Device: None (Room air) O2 Flow Rate (L/min): [0 L/min] 0 L/min Weight: Body mass index is 44.91 kg/m . Admission weight: 111.4 kg (245 lb 9.5 oz) Wt Readings from Last 3 Encounters: 12/03/24 111.4 kg (245 lb 9.5 oz) 03/11/22 111.4 kg (245 lb 9.5 oz) 12/24/18 86.2 kg (190 lb) Input/Output: Intake/Output Summary (Last 24 hours) at 12/04/2024 1449 Last data filed at 12/04/2024 0952 Gross per 24 hour Intake 2365.63 ml Output 1900 ml Net 465.63 ml Physical Exam: General appearance: alert, oriented, in no apparent distress HEENT: atraumatic, EOM intact, sclera anicteric, no erythema/exudate Neck: supple, without lymphadenopathy Lungs: clear to auscultation bilaterally, no use of accessory muscles Heart: RRR, normal S1 and S2, no murmurs Abdomen: soft, non-distended, non-tender, normoactive bowel sounds Extremities: no edema, no rash Neurologic: no focal motor or sensory deficits noted Psychiatric: appropriate mood and affect Labs/Imaging: Recent Results (from the past 24 hours) Bedside Glucose *Place/Obtain serum glucose if >500 per glucometer. Collection Time: 12/03/24 3:31 PM Result Value Ref Range Bedside Glucose (POC) 269 (H) 65 - 99 mg/dL Bedside Glucose *Place/Obtain serum glucose if >500 per glucometer. Collection Time: 12/03/24 4:33 PM Result Value Ref Range Bedside Glucose (POC) 237 (H) 65 - 99 mg/dL Bedside Glucose *Place/Obtain serum glucose if >500 per glucometer. Collection Time: 12/03/24 5:29 PM Result Value Ref Range Bedside Glucose (POC) 114 (H) 65 - 99 mg/dL Electrolyte panel Collection Time: 12/03/24 8:10 PM Result Value Ref Range SODIUM 137 134 - 146 mmol/L POTASSIUM 4.4 3.5 - 5.0 mmol/L CHLORIDE 109 98 - 109 mmol/L CARBON DIOXIDE 21 (L) 22 - 32 mmol/L ANION GAP 7 5 - 15 mmol/L Bedside Glucose *Place/Obtain serum glucose if >500 per glucometer. Collection Time: 12/03/24 8:12 PM Result Value Ref Range Bedside Glucose (POC) 238 (H) 65 - 99 mg/dL Bedside Glucose *Place/Obtain serum glucose if >500 per glucometer. Collection Time: 12/03/24 9:56 PM Result Value Ref Range Bedside Glucose (POC) 257 (H) 65 - 99 mg/dL Electrolyte panel Collection Time: 12/03/24 11:56 PM Result Value Ref Range SODIUM 136 134 - 146 mmol/L POTASSIUM 4.4 3.5 - 5.0 mmol/L CHLORIDE 110 (H) 98 - 109 mmol/L CARBON DIOXIDE 20 (L) 22 - 32 mmol/L ANION GAP 6 5 - 15 mmol/L Bedside Glucose *Place/Obtain serum glucose if >500 per glucometer. Collection Time: 12/04/24 12:01 AM Result Value Ref Range Bedside Glucose (POC) 262 (H) 65 - 99 mg/dL Basic Metabolic Panel Collection Time: 12/04/24 4:59 AM Result Value Ref Range SODIUM 139 134 - 146 mmol/L POTASSIUM 4.3 3.5 - 5.0 mmol/L CHLORIDE 111 (H) 98 - 109 mmol/L CARBON DIOXIDE 20 (L) 22 - 32 mmol/L ANION GAP 8 5 - 15 mmol/L BLOOD UREA NITROGEN 15 5 - 23 mg/dL CREATININE 0.89 0.40 - 1.00 mg/dL GLUCOSE 253 (H) 65 - 99 mg/dL CALCIUM 7.6 (L) 8.5 - 10.5 mg/dL EGFR Non-Race Dependent 80 >=60 ml/min/1.73sq.m CBC auto differential Collection Time: 12/04/24 4:59 AM Result Value Ref Range WBC 5.3 4 - 11 x10E9/L RBC Count 3.67 (L) 3.8 - 5.2 X10E12/L Hemoglobin 11.2 (L) 11.7 - 15.5 g/dL Hematocrit 32.7 (L) 35 - 47 % MCV 89 80 - 100 fL MCH 30.4 27 - 34 pg MCHC 34.1 32 - 36 g/dL RDW 13.5 11.5 - 15 % Platelet Count 235 150 - 450 X10E9/L MPV 7.5 7 - 12 fL Neutrophils % 52.8 % Lymphocytes % 38.3 % Monocytes % 4.8 % Eosinophils % 3.0 % Basophils % 1.1 % Neutrophils Absolute (A) 2.8 1.5 - 6.6 10*3/uL Lymphocytes Absolute 2.0 1.0 - 3.5 10*3/uL Monocytes Absolute 0.3 0.0 - 0.9 10*3/uL Eosinophils Absolute 0.2 0.0 - 0.4 10*3/uL Basophils Absolute 0.1 0.0 - 0.2 10*3/uL Differential Type AUTOMATED DIFFERENTIAL Bedside Glucose *Place/Obtain serum glucose if >500 per glucometer. Collection Time: 12/04/24 9:20 AM Result Value Ref Range Bedside Glucose (POC) 251 (H) 65 - 99 mg/dL Bedside Glucose *Place/Obtain serum glucose if >500 per glucometer. Collection Time: 12/04/24 11:54 AM Result Value Ref Range Bedside Glucose (POC) 348 (H) 65 - 99 mg/dL All available laboratory, imaging, and microbiology data has been personally reviewed in detail, and accessible in full per EMR. Medications: atorvastatin, 80 mg, oral, Daily heparin (porcine), 5,000 Units, subcutaneous, Q12H SAMEER insulin glargine, 20 Units, subcutaneous, BID insulin lispro, 1-4 Units, subcutaneous, Nightly insulin lispro, 2-10 Units, subcutaneous, TID with meals insulin lispro, 2-10 Units, subcutaneous, TID with meals levETIRAcetam, 750 mg, oral, BID levothyroxine, 75 mcg, oral, Daily pregabalin, 100 mg, oral, Nightly QUEtiapine, 800 mg, oral, Nightly sodium chloride, 3 mL, intravenous, Q12H SAMEER tiZANidine, 4 mg, oral, TID ASSESSMENT Bilateral acute onset vision loss secondary to hyperglycemia Diabetic retinopathy [id number] diabetic macular edema right eye Seizure-like episode Type 2 diabetes mellitus, uncontrolled Acute kidney injury, resolved Elevated anion gap, resolved PLAN Lantus 20 units b.i.d. with medium correction scale a.c. HS and carb coverage. Further insulin adjustments as needed. Patient reports she had an insulin pump at home with no supplies. We will require close endocrinology follow up as an outpatient Continue home Keppra, atorvastatin, Synthroid, Lyrica, Seroquel PTOT to evaluate DVT prophylaxis: Heparin Discharge planning: tbd Elda Aguirre MD documented in this encounter [facility] 12-04-2024 Progress note Formatting of t his note is different from the original. Images from the original note were not included. Initial Assessment Initial Assessment Flowsheet Row Most Recent Value Patient Information Initial Pre-Hospitalization Assessment Completed? Completed Primary Caregiver Self Support System Children Discharge Planning Living Arrangements Adult Child(dell), Private Residence Assistance Needed mild adls Type of Residence House Private Residence 2 story Home Care Services No Stressors Income Information Income Information Unemployed IP Hunger/Food Insecurity Screening Within the past 12 months we worried whether our food would run out before we got money to buy more. Never True Within the past 12 months the food we bought just didn't last and we didn't have money to get more. Never True Hunger Screening Complete? Yes Pt. Eligible for Food / Voucher No Caregiver/Family Member Caregiver/Family Member daughter Caregiver/Family Member Involved with Current Plan of Care No Caregiver/Support System Limitations Patient/Caregiver Goals Patient/Caregiver Goals Home with Home Care Community Provider Referral Services Requested Patient expects to be discharged to: home vs home with home care Does the patient wish to have family/friend/caregiver involved in their discharge planning? No, the patient does not wish to have family/friend/caregiver involved in their discharge planning Discharge Disposition Home with home health services Patient choice offered Yes List Provided Yes CarePort List Provided Home Care [employer] met with patient, introduced self, and explained role. Patient educated on safe discharge plan. 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 Medical equipment patient used prior to admission includes: Cane. Patient denies need for transportation/ food/ prescription medication assistance resources. Patient's caregiver has been assessed to determine readiness, skills, capabilities, and resources to provide post hospital care. Caregiver's pre-stroke responsibilities include patient lives with her daughter. Caregiver's personal limitations include patient states dtr stays upstairs mostly, but does not work. Other than named caregiver, other support system includes patient would like to be set up with home care agency. . Caregiver is willing both physically and emotionally to provide care patient will require. Caregiver is prepared to provide skills needed to assist with patient's personal care. Discharge home and needed durable medical equipment has been assessed and obtained. Financial, food, and transportation needs have been assessed and resources provided if needed. Patient's need for ongoing services have been assessed and resources provided. Discharge plan home with [facility]. PCP: No primary care provider on file. Pharmacy:[facility] PCP and pharmacy confirmed with patient. CN offered to assist with follow up appointment arrangements; patient agreeable, tasked appointment to CN. No primary care provider on file. added to Follow Up Providers for Summary of Care communication. Per patient self-report: Drug use: denies Smokinppd ETOH Use: denies Current discharge plan is: Home with daughter support and home care services. Choice list given for home care agencies. Tasked [facility] to assist with finding patient new PCP. Services Requested: Services Requested Patient expects to be discharged to:: home vs home with home care Does the patient wish to have family/friend/caregiver involved in their discharge planning?: No, the patient does not wish to have family/friend/caregiver involved in their discharge planning Discharge Disposition: Home with home health services Patient choice offered: Yes List Provided: Yes CarePort List Provided: Home Care Goals: Goals (pt-stated) Evaluation of progress towards goal: home with HHC Return Home (pt-stated) Evaluation of progress towards goal: safe discharge to [facility] with Home Care and daughter, friend support Will continue to follow as plan of care develops. CN discussed benefits and importance of medication compliance and follow ups. Please feel free to reach out for any discharge planning questions. - Ezra Will RN 12/04/24 12:42 PM T [facility] [employer] [facility] 12-04-2024 Plan of care note Problem: Glucose Imbalance Goal: Clinical indication of glucose balance is achieved Description: Patient's goal is: INTERVENTIONS 1. Monitor blood glucose levels as ordered 2. Administer medications as ordered 3. Notify physician of ineffective treatment plan Outcome: Progressing Note: Evaluation of progress towards goal: pt off insulin drip, continue education and s/s coverage blood glucose improved but still elevated [facility] [employer] [facility] 12-04-2024 Plan of care note Problem: Glucose Imbalance Goal: Clinical indication of glucose balance is achieved Description: Patient's goal is: INTERVENTIONS 1. Monitor blood glucose levels as ordered 2. Administer medications as ordered 3. Notify physician of ineffective treatment plan Outcome: Progressing Note: Evaluation of progress towards goal: Goal: Patient's discharge needs are met Description: Patient's goal is: INTERVENTIONS 1. Assess patient for self-management skills 2. Encourage participation in diabetes management 3. Identify potential discharge barriers on admission and throughout hospital stay 4. Involve patient/S.O. in discharge planning process 5. Communicate referral to hand cooper helper as appropriate 6. Communicate referral to manager cable as appropriate 7. Collaborate with case management/social organization professor for discharge needs Outcome: Progressing Note: Evaluation of progress towards goal: [facility] 12-03-2024 Progress note Formatting of t his note might be different from the original. [facility] Transfer Accept Note I have received a request for transfer of primary service for this patient from the neurology team. Clinical handoff report was given. [facility] will assume care as primary team of this patient starting 12/04/24 at 7:00 am. LIANNE MCCORMICK MD 12/03/2024 [facility] 12-03-2024 Consult note Formatting of th is note might be different from the original. Date: Reason for consult: I have been asked to evaluate the eyes of this 49-year-old lady who reported sudden onset of profound onset blurred vision/complete blindness in both eyes 24 hours ago. This afternoon she indicates that she can see but is still blurry. She has a history of diabetes and management of this has been extremely poor. She denies any light flashes or floaters. Addie Jean Baptiste is a 49 y.o. 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 She was admitted by neurology team. She reports that she could not see any movement or light in both eyes. Symptoms started yesterday when she stood up and felt that her legs were wobbly. Vision loss started in both eyes at the same time and she started running into fenton. Denies any headaches, jaw pain or claudications. No fevers or chills. It is also reported that the patient had a 2nd seizure when EMS arrived? Past Ocular History: The patient has significant past eye History consistent of cataract surgery left eye and and she is aware of diabetic macular edema secondary to diabetic retinopathy. H&P Reviewed: Pt is seen at bedside. Patient communicates appropriately & oriented to self space & time. Examination: Vision: OD 20/70 , OS 20/ 200 Physical Exam External: : Normal Lids: Right: Normal position. No Ptosis. Left: Normal No ptosis Extra Ocular Movements: Right: Full No restrictions. No strabismus No nystagmus Left: Full No restrictions No strabismus. No nystagmus. Orbits: OD: Intact orbital rim.: OS: Intact Orbital rim: Right: Cr N 2-7 Normal Left Cr N 0 2-7 Normal Visual Marquez: OD Confrontation: Full : OS: Confrontation:Full Anterior Segment Conjunctiva: : OD: Normal OS: Normal Sclera: : OD: Clear OS: Clear: Cornea: OD Clear OS: Clear : Anterior Chamber: : OD:Deep & Clear OS: Deep & Clear Lens: : OD:Clear OS: IOL Pupils: OD Size 3mm, Round, Reacts 3+, No affarent defect. OS Size 3mm, Round, Reacts 3+, No affarent defect. Intra Ocular Pressure: OD: mmHg - Tonopen: OD: Normotensive: OS MmHg - Tonopen OS: Normotensive Vitreous: Clear Floaters Hemorrhage Fundi: Dilated using 2.5% Anibal-Synephrine and 1% Mydriacyl OU [place] sharp margins OU Cup/Disc Ratio 0.3 OU . Vessels: Normal in size and distribution OU Macula: Normal in appearance OU. Both macular areas exhibit background diabetic retinopathy characterized by flame hemorrhages microaneurysms and lipid deposits. This can result in some degree of diabetic macular edema secondary to diabetic retinopathy. Retina: Evidence of non proliferative background diabetic OU. OD: Non proliferative background diabetic retinopathy. OS: Stable proliferative diabetic retinopathy. There is numerous panretinal photocoagulation scars in the peripheral retina the left eye. Fully attached in all quadrants.OU Retina Periphery: No holes or tears or retina detachment. OU. Note is made of the panretinal photocoagulation scars 360 in the periphery of the left fundus. 1. Impression & Recommendations: OD: Background diabetic retinopathy with mild to moderate diabetic macular edema right eye. OS: Stable proliferative diabetic retinopathy with additional background diabetic retinopathy and possible [id number] diabetic macular edema. The patient's profound visual complaints most likely was secondary to hyperglycemic refractive error. With control of the patient's diabetes vision is suspected to returned to baseline level in 2-4 weeks. The vision has been advised to follow-up with retina specialist Dr. Jonas Casey at [facility] and also to see regular eyeglass frames inspector for refractive care.. Thanks Esvin Ibrahim MD, FACS. [facility] [employer] [facility] 12-03-2024 Consult note Formatting of th is note might be different from the original. Date: Reason for consult: I have been asked to evaluate the eyes of this 49-year-old lady who reported sudden onset of profound onset blurred vision/complete blindness in both eyes 24 hours ago. This afternoon she indicates that she can see but is still blurry. She has a history of diabetes and management of this has been extremely poor. She denies any light flashes or floaters. Addie Jean Baptiste is a 49 y.o. 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 She was admitted by neurology team. She reports that she could not see any movement or light in both eyes. Symptoms started yesterday when she stood up and felt that her legs were wobbly. Vision loss started in both eyes at the same time and she started running into fenton. Denies any headaches, jaw pain or claudications. No fevers or chills. It is also reported that the patient had a 2nd seizure when EMS arrived? Past Ocular History: The patient has significant past eye History consistent of cataract surgery left eye and and she is aware of diabetic macular edema secondary to diabetic retinopathy. H&P Reviewed: Pt is seen at bedside. Patient communicates appropriately & oriented to self space & time. Examination: Vision: OD 20/70 , OS 20/ 200 Physical Exam External: : Normal Lids: Right: Normal position. No Ptosis. Left: Normal No ptosis Extra Ocular Movements: Right: Full No restrictions. No strabismus No nystagmus Left: Full No restrictions No strabismus. No nystagmus. Orbits: OD: Intact orbital rim.: OS: Intact Orbital rim: Right: Cr N 2-7 Normal Left Cr N 0 2-7 Normal Visual Marquez: OD Confrontation: Full : OS: Confrontation:Full Anterior Segment Conjunctiva: : OD: Normal OS: Normal Sclera: : OD: Clear OS: Clear: Cornea: OD Clear OS: Clear : Anterior Chamber: : OD:Deep & Clear OS: Deep & Clear Lens: : OD:Clear OS: IOL Pupils: OD Size 3mm, Round, Reacts 3+, No affarent defect. OS Size 3mm, Round, Reacts 3+, No affarent defect. Intra Ocular Pressure: OD: mmHg - Tonopen: OD: Normotensive: OS MmHg - Tonopen OS: Normotensive Vitreous: Clear Floaters Hemorrhage Fundi: Dilated using 2.5% Anibal-Synephrine and 1% Mydriacyl OU [place] sharp margins OU Cup/Disc Ratio 0.3 OU . Vessels: Normal in size and distribution OU Macula: Normal in appearance OU. Both macular areas exhibit background diabetic retinopathy characterized by flame hemorrhages microaneurysms and lipid deposits. This can result in some degree of diabetic macular edema secondary to diabetic retinopathy. Retina: Evidence of non proliferative background diabetic OU. OD: Non proliferative background diabetic retinopathy. OS: Stable proliferative diabetic retinopathy. There is numerous panretinal photocoagulation scars in the peripheral retina the left eye. Fully attached in all quadrants.OU Retina Periphery: No holes or tears or retina detachment. OU. Note is made of the panretinal photocoagulation scars 360 in the periphery of the left fundus. 1. Impression & Recommendations: OD: Background diabetic retinopathy with mild to moderate diabetic macular edema right eye. OS: Stable proliferative diabetic retinopathy with additional background diabetic retinopathy and possible avbm-ag-cahfcuie diabetic macular edema. The patient's profound visual complaints most likely was secondary to hyperglycemic refractive error. With control of the patient's diabetes vision is suspected to returned to baseline level in 2-4 weeks. The vision has been advised to follow-up with retina specialist Dr. Jonas Casey at [facility] and also to see regular eyeglass frames inspector for refractive care.. Thanks Esvin Ibrahim MD, FACS. Associated Order(s): IP CONSULT TO INTERNAL MEDICINE Images from the original note were not included. [facility] Hospitalists Consultation 12/03/2024 Patient Name: Addie Jean Baptiste : 1975 Reason for Consultation: hyperglycemia Referring Physician/Team: Dr. Sam CHARLES Addie Jean Baptiste is a 49 y.o. 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 She was admitted by neurology team. She reports that she could not see any movement or light in both eyes. Symptoms started yesterday when she stood up and felt that her legs were wobbly. Vision loss started in both eyes at the same time and she started running into fenton. Denies any headaches, jaw pain or claudications. No fevers or chills. It is also reported that the patient had a 2nd seizure when EMS arrived? Upon arrival to ER the patient was slightly tachycardic with heart rate of 101. Blood work was significant for a glucose of 640, CO2 of 21 and creatinine of 1.4. Her sodium was 133. CT brain without contrast was done and was negative for acute changes CTA head and neck could not be obtained due to contrast allergy and patient refusal. - Internal medicine was consulted this morning due to severe hyperglycemia. - Upon my evaluation this morning the patient reports that her vision has improved but it is still blurry. She is able to see light and movement in both eyes. She denies any headaches. - she informed me that she currently uses insulin NovoLog 30 units subQ b.i.d. at home and does not check her blood glucose at all. She had an insulin pump that malfunctioned few months ago and she has been off the insulin pump ever since. She states that new pump was delivered to her place but she was not able to assemble the pump on her own. She also had a Dexcom in the past and needs refills. Past Medical History: Diagnosis Date Arrhythmia Arthritis Bipolar disorder [place] Bronchitis, chronic ([facility] Chronic constipation Chronic kidney disease Depression Diabetes mellitus type 2, controlled ([facility]) Meningitis Sudden loss of vision 12/02/2024 Past Surgical History: Procedure Laterality Date CHOLECYSTECTOMY FOOT SURGERY Left HYSTERECTOMY LAPAROSCOPY PORT CLAVICLE RT Allergy: Darvocet a500 [propoxyphene n-acetaminophen], Tramadol, Adhesive tape-silicones, Dye, Ibuprofen, Latex, Vancomycin, Codeine, and Toradol [ketorolac] Prior to Admission medications Medication Sig Start Date End Date Taking? Authorizing Provider insulin glargine (LANTUS) 100 unit/mL injection Inject under the skin nightly. Yes Not In System Ref Prov insulin lispro (HumaLOG) 100 unit/mL injection Inject under the skin in the morning and at noon and in the evening. Inject before meals. Yes Not In System Ref Prov oxyCODONE-acetaminophen (PERCOCET) 5-325 mg per tablet Take 1 tablet by mouth every 8 (eight) hours as needed for pain Indications: pain. Max Daily Amount: 3 tablets Yes Not In System Ref Prov pregabalin (LYRICA) 100 mg capsule Take 1 capsule (100 mg total) by mouth nightly. Yes Not In System Ref Prov QUEtiapine (SEROquel) 200 mg tablet Take 4 tablets (800 mg total) by mouth nightly. Yes Not In System Ref Prov tiZANidine (ZANAFLEX) 4 mg tablet Take 1 tablet (4 mg total) by mouth in the morning and 1 tablet (4 mg total) at noon and 1 tablet (4 mg total) before bedtime. Yes Not In System Ref Prov aspirin 81 mg Take 81 mg by mouth daily. Patient not taking: Reported on 12/03/2024 Not In System Ref Prov atorvastatin (LIPITOR) 80 mg tablet Take 1 tablet (80 mg total) by mouth in the morning. Patient not taking: Reported on 12/03/2024 03/10/22 Milton Vazquez MD levETIRAcetam (KEPPRA) 750 mg tablet Take 1 tablet (750 mg total) by mouth in the morning and 1 tablet (750 mg total) before bedtime. Patient not taking: Reported on 12/03/2024 Not In System Ref Prov levothyroxine (SYNTHROID, LEVOTHROID) 75 MCG tablet Take 75 mcg by mouth daily. Patient not taking: Reported on 12/03/2024 Not In System Ref Prov lithium 600 MG capsule Take 600 mg by mouth nightly. Patient not taking: Reported on 12/03/2024 Not In System Ref Prov lithium carbonate 300 mg tablet Take 300 mg by mouth every morning before breakfast. Patient not taking: Reported on 12/03/2024 Not In System Ref Prov metFORMIN (GLUMETZA) 1000 MG (MOD) 24 hr tablet Take 1,000 mg by mouth 2 (two) times a day with meals. Patient not taking: Reported on 12/03/2024 Not In System Ref Prov Social History: reports that she has been smoking cigarettes. She has never used smokeless tobacco. She reports that she does not currently use alcohol. She reports that she does not use drugs. Family History Problem Relation Age of Onset Lung disease Mother Review of Systems Review of Systems: Constitutional: no fevers or chills. No diaphoresis. No weight loss. Eyes: Positive for bilateral vision loss. No eye pain. No photophobia. HENT: no ear pain, discharge or tinnitus. No hearing loss. CV: No CP, No Palpitations. No leg swelling. Respiratory: No SOB No cough. No wheezing. GI: No pain, no nausea, no diarrhea Extremities: No pain no edema Skin: no rash. No itchiness. Musculoskeletal: No muscle pain no aches : Increased urinary frequency. Endocrine: No easy bruising /bleed. No polydipsia. Neuro: No headache. No weakness. No sensation changes PSYCH: No hallucination no memory loss. As per HPI; otherwise reviewed and negative per 10-pt review. Exam Vitals: Blood pressure 146/84, pulse 98, temperature 36.6 C (97.8 F), temperature source Oral, resp. rate (!) 26, height 157.5 cm (5' 2.01 ), weight 111.4 kg (245 lb 9.5 oz), SpO2 97%. @LASTSAO2(3)@ Oxygen Therapy SpO2: 97 % O2 Device: None (Room air) O2 Flow Rate (L/min): 0 L/min Intake/Output Summary (Last 24 hours) at 12/03/2024 0935 Last data filed at 12/03/2024 0831 Gross per 24 hour Intake 2.15 ml Output -- Net 2.15 ml General appearance: Alert, cooperative, no distress. Head: Normocephalic, without obvious abnormality, atraumatic Eyes: PERRLA, EOM's intact Conjunctiva/corneas moist and clear, no pallor or icterus. ENT: Oropharynx clear with moist mucous membranes and no mucosal ulcerations. No thrush. External ears and nose are normal without lesions or scars. Neck: Supple, symmetrical, trachea midline, no adenopathy Thyroid: not enlarged, symmetric, no tenderness/mass/nodules. Respiratory: Normal work of breathing. No use of accessory muscles. No wheezing, rhonchi or crackles. Chest Wall: No tenderness or deformity. Cardiovascular: Regular rate and rhythm, S1, S2 normal, no murmur, rub or gallop. No LE edema. Normal radial, ulnar, DP and PT pulses. Abdomen: Soft, non-tender, no masses. No hernia. No hepatosplenomegaly. Musculoskeletal: Normal range of motion. No clubbing, cyanosis, petechiae or ischemia. Skin: Extremities are warm and have brisk capillary refill. No rashes, lesions or ulcers. No induration or subcutaneous nodules. Lymph nodes: Cervical and supraclavicular nodes normal Neurologic the: CN 2-12 Grossly intact. DTRs +2 throughout. Sensation to touch is intact. Psychiatric: Mood and affect appropriate, Appropriate judgment and insight. Alert and oriented. : Recent Results (from the past 24 hours) Comprehensive metabolic panel Collection Time: 12/03/24 5:25 AM Result Value Ref Range SODIUM 133 (L) 134 - 146 mmol/L POTASSIUM 4.3 3.5 - 5.0 mmol/L CHLORIDE 101 98 - 109 mmol/L CARBON DIOXIDE 21 (L) 22 - 32 mmol/L ANION GAP 11 5 - 15 mmol/L BLOOD UREA NITROGEN 21 5 - 23 mg/dL CREATININE 1.40 (H) 0.40 - 1.00 mg/dL GLUCOSE 640 (HH) 65 - 99 mg/dL CALCIUM 8.1 (L) 8.5 - 10.5 mg/dL TOTAL PROTEIN 6.0 6.0 - 8.0 g/dL ALBUMIN 3.4 3.2 - 5.3 g/dL ALKALINE PHOSPHATASE 104 39 - 130 U/L AST 11 <=41 U/L ALT 10 <=31 U/L BILIRUBIN,TOTAL 0.4 0.3 - 1.2 mg/dL EGFR Non-Race Dependent 47 (L) >=60 ml/min/1.73sq.m CBC auto differential Collection Time: 12/03/24 5:25 AM Result Value Ref Range WBC 7.1 4 - 11 x10E9/L RBC Count 4.24 3.8 - 5.2 X10E12/L Hemoglobin 13.2 11.7 - 15.5 g/dL Hematocrit 38.7 35 - 47 % MCV 91 80 - 100 fL MCH 31.0 27 - 34 pg MCHC 34.0 32 - 36 g/dL RDW 13.5 11.5 - 15 % Platelet Count 234 150 - 450 X10E9/L MPV 8.2 7 - 12 fL Neutrophils % 66.5 % Lymphocytes % 24.3 % Monocytes % 6.1 % Eosinophils % 2.1 % Basophils % 1.0 % Neutrophils Absolute (A) 4.7 1.5 - 6.6 10*3/uL Lymphocytes Absolute 1.7 1.0 - 3.5 10*3/uL Monocytes Absolute 0.4 0.0 - 0.9 10*3/uL Eosinophils Absolute 0.1 0.0 - 0.4 10*3/uL Basophils Absolute 0.1 0.0 - 0.2 10*3/uL Differential Type AUTOMATED DIFFERENTIAL Bedside Glucose *Place/Obtain serum glucose if >500 per glucometer. Collection Time: 12/03/24 7:26 AM Result Value Ref Range Bedside Glucose (POC) >500 (HH) 65 - 99 mg/dL Bedside Glucose *Place/Obtain serum glucose if >500 per glucometer. Collection Time: 12/03/24 7:28 AM Result Value Ref Range Bedside Glucose (POC) >500 (HH) 65 - 99 mg/dL Bedside Glucose *Place/Obtain serum glucose if >500 per glucometer. Collection Time: 12/03/24 9:36 AM Result Value Ref Range Bedside Glucose (POC) 409 (HH) 65 - 99 mg/dL Imaging Imaging has been reviewed in detail and can be seen in full via EMR. Echo complete W/ contrast Left Ventricle: Left ventricle appears normal in size. There is mild increased wall thickness/hypertrophy. Systolic function is normal with an ejection fraction of 60-65%. Left Atrium: Left atrium is normal in size. The left atrial volume index is 18.1 mL/m2. Agitated saline bubble study revealed no evidence of right to left interatrial shunting . No significant valvular stenosis or regurgitation. Assessment and Plan Active Hospital Problems Diagnosis Date Noted Sudden loss of vision 12/03/2024 Hyperosmolar hyperglycemic state (HHS) (CMS-HCC) 12/03/2024 SOLO (acute kidney injury) 12/03/2024 Resolved Problems No resolved problems to display. - HHS - BG 640 - uncontrolled diabetes mellitus type 2 with noncompliance - previously on insulin pump now has been off for few months and self manages with insulin NovoLog 30 units subQ b.i.d. at home without checking blood glucose? - Check HbA1c. - I started the patient on insulin drip and IV fluids. Monitor blood glucose q.1 hour. Monitor electrolytes q.2 hours x3 then q.4 hours afterwards. We will have to adjust the IV fluids accordingly. - Once her hyperglycemia has improved and symptoms resolved we will transition her to basal-prandial insulin here at the hospital. - She will need to establish care with endocrinology as outpatient. She is interested in following up with [facility]. If she is able to bring he insulin pump to the hospital then we can consult endocrinology and see if the can restart her pump prior to discharge. - Acute onset painless bilateral vision loss - History of left eye vision loss due to retinal hemorrhage - I think her symptoms are very likely related to the hyperglycemia/HHS. CT brain is negative for acute changes CTA head and neck was not done due to contrast allergy and patient refusal Management is per primary neurology team. MRI brain was ordered Ophthalmology was consulted. - SOLO: - Non-anion gap metabolic acidosis: This is likely prerenal in the setting of HHS /hypovolemic state IV fluid resuscitation Avoid nephrotoxic agents. Monitor BMP. Hypothyroidism Check TSH levels. Synthroid 75 mcg p.o. daily Obesity class 3 BMI 44.9 Counseling DVT prophylaxis: Heparin 5000 units subQ b.i.d.. Code Status: Full code. Disposition: To be determined later. Current care plan discussed in detail with the patient. She verbalized understanding. Further management will follow based on the clinical course of the patient and results of ongoing evaluation Thank you Dr. Vargas for allowing me to participate in the care of your patient. Electronically signed by: LIANNE MCCORMICK MD 12/03/2024 Preferred contact method: #1. Epic chat #2. [facility] team pager Available from 7 am to 7 pm documented in this encounter [facility] 12-03-2024 Plan of care note Problem: Glucose Imbalance Goal: Clinical indication of glucose balance is achieved Description: Patient's goal is: INTERVENTIONS 1. Monitor blood glucose levels as ordered 2. Administer medications as ordered 3. Notify physician of ineffective treatment plan Outcome: Progressing Note: Evaluation of progress towards goal: started on insulin drip Goal: Patient's discharge needs are met Description: Patient's goal is: INTERVENTIONS 1. Assess patient for self-management skills 2. Encourage participation in diabetes management 3. Identify potential discharge barriers on admission and throughout hospital stay 4. Involve patient/S.O. in discharge planning process 5. Communicate referral to hand cooper helper as appropriate 6. Communicate referral to manager cable as appropriate 7. Collaborate with case management/social organization professor for discharge needs Note: Evaluation of progress towards goal: pt request to meet dialysis social worker [facility] 12-03-2024 Consult note Associated Order (s): IP CONSULT TO INTERNAL MEDICINE Images from the original note were not included. [facility] Hospitalists Consultation 12/03/2024 Patient Name: Addie Jean Baptiste : 1975 Reason for Consultation: hyperglycemia Referring Physician/Team: Dr. Sam CHARLES Addie Jean Baptiste is a 49 y.o. 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 She was admitted by neurology team. She reports that she could not see any movement or light in both eyes. Symptoms started yesterday when she stood up and felt that her legs were wobbly. Vision loss started in both eyes at the same time and she started running into fenton. Denies any headaches, jaw pain or claudications. No fevers or chills. It is also reported that the patient had a 2nd seizure when EMS arrived? Upon arrival to ER the patient was slightly tachycardic with heart rate of 101. Blood work was significant for a glucose of 640, CO2 of 21 and creatinine of 1.4. Her sodium was 133. CT brain without contrast was done and was negative for acute changes CTA head and neck could not be obtained due to contrast allergy and patient refusal. - Internal medicine was consulted this morning due to severe hyperglycemia. - Upon my evaluation this morning the patient reports that her vision has improved but it is still blurry. She is able to see light and movement in both eyes. She denies any headaches. - she informed me that she currently uses insulin NovoLog 30 units subQ b.i.d. at home and does not check her blood glucose at all. She had an insulin pump that malfunctioned few months ago and she has been off the insulin pump ever since. She states that new pump was delivered to her place but she was not able to assemble the pump on her own. She also had a Dexcom in the past and needs refills. Past Medical History: Diagnosis Date Arrhythmia Arthritis Bipolar disorder [place] Bronchitis, chronic ([facility] Chronic constipation Chronic kidney disease Depression Diabetes mellitus type 2, controlled ([facility]) Meningitis Sudden loss of vision 12/02/2024 Past Surgical History: Procedure Laterality Date CHOLECYSTECTOMY FOOT SURGERY Left HYSTERECTOMY LAPAROSCOPY PORT CLAVICLE RT Allergy: Darvocet a500 [propoxyphene n-acetaminophen], Tramadol, Adhesive tape-silicones, Dye, Ibuprofen, Latex, Vancomycin, Codeine, and Toradol [ketorolac] Prior to Admission medications Medication Sig Start Date End Date Taking? Authorizing Provider insulin glargine (LANTUS) 100 unit/mL injection Inject under the skin nightly. Yes Not In System Ref Prov insulin lispro (HumaLOG) 100 unit/mL injection Inject under the skin in the morning and at noon and in the evening. Inject before meals. Yes Not In System Ref Prov oxyCODONE-acetaminophen (PERCOCET) 5-325 mg per tablet Take 1 tablet by mouth every 8 (eight) hours as needed for pain Indications: pain. Max Daily Amount: 3 tablets Yes Not In System Ref Prov pregabalin (LYRICA) 100 mg capsule Take 1 capsule (100 mg total) by mouth nightly. Yes Not In System Ref Prov QUEtiapine (SEROquel) 200 mg tablet Take 4 tablets (800 mg total) by mouth nightly. Yes Not In System Ref Prov tiZANidine (ZANAFLEX) 4 mg tablet Take 1 tablet (4 mg total) by mouth in the morning and 1 tablet (4 mg total) at noon and 1 tablet (4 mg total) before bedtime. Yes Not In System Ref Prov aspirin 81 mg Take 81 mg by mouth daily. Patient not taking: Reported on 12/03/2024 Not In System Ref Prov atorvastatin (LIPITOR) 80 mg tablet Take 1 tablet (80 mg total) by mouth in the morning. Patient not taking: Reported on 12/03/2024 03/10/22 Milton Vazquez MD levETIRAcetam (KEPPRA) 750 mg tablet Take 1 tablet (750 mg total) by mouth in the morning and 1 tablet (750 mg total) before bedtime. Patient not taking: Reported on 12/03/2024 Not In System Ref Prov levothyroxine (SYNTHROID, LEVOTHROID) 75 MCG tablet Take 75 mcg by mouth daily. Patient not taking: Reported on 12/03/2024 Not In System Ref Prov lithium 600 MG capsule Take 600 mg by mouth nightly. Patient not taking: Reported on 12/03/2024 Not In System Ref Prov lithium carbonate 300 mg tablet Take 300 mg by mouth every morning before breakfast. Patient not taking: Reported on 12/03/2024 Not In System Ref Prov metFORMIN (GLUMETZA) 1000 MG (MOD) 24 hr tablet Take 1,000 mg by mouth 2 (two) times a day with meals. Patient not taking: Reported on 12/03/2024 Not In System Ref Prov Social History: reports that she has been smoking cigarettes. She has never used smokeless tobacco. She reports that she does not currently use alcohol. She reports that she does not use drugs. Family History Problem Relation Age of Onset Lung disease Mother Review of Systems Review of Systems: Constitutional: no fevers or chills. No diaphoresis. No weight loss. Eyes: Positive for bilateral vision loss. No eye pain. No photophobia. HENT: no ear pain, discharge or tinnitus. No hearing loss. CV: No CP, No Palpitations. No leg swelling. Respiratory: No SOB No cough. No wheezing. GI: No pain, no nausea, no diarrhea Extremities: No pain no edema Skin: no rash. No itchiness. Musculoskeletal: No muscle pain no aches : Increased urinary frequency. Endocrine: No easy bruising /bleed. No polydipsia. Neuro: No headache. No weakness. No sensation changes PSYCH: No hallucination no memory loss. As per HPI; otherwise reviewed and negative per 10-pt review. Exam Vitals: Blood pressure 146/84, pulse 98, temperature 36.6 C (97.8 F), temperature source Oral, resp. rate (!) 26, height 157.5 cm (5' 2.01 ), weight 111.4 kg (245 lb 9.5 oz), SpO2 97%. @LASTSAO2(3)@ Oxygen Therapy SpO2: 97 % O2 Device: None (Room air) O2 Flow Rate (L/min): 0 L/min Intake/Output Summary (Last 24 hours) at 12/03/2024 0955 Last data filed at 12/03/2024 0831 Gross per 24 hour Intake 2.15 ml Output -- Net 2.15 ml General appearance: Alert, cooperative, no distress. Head: Normocephalic, without obvious abnormality, atraumatic Eyes: PERRLA, EOM's intact Conjunctiva/corneas moist and clear, no pallor or icterus. ENT: Oropharynx clear with moist mucous membranes and no mucosal ulcerations. No thrush. External ears and nose are normal without lesions or scars. Neck: Supple, symmetrical, trachea midline, no adenopathy Thyroid: not enlarged, symmetric, no tenderness/mass/nodules. Respiratory: Normal work of breathing. No use of accessory muscles. No wheezing, rhonchi or crackles. Chest Wall: No tenderness or deformity. Cardiovascular: Regular rate and rhythm, S1, S2 normal, no murmur, rub or gallop. No LE edema. Normal radial, ulnar, DP and PT pulses. Abdomen: Soft, non-tender, no masses. No hernia. No hepatosplenomegaly. Musculoskeletal: Normal range of motion. No clubbing, cyanosis, petechiae or ischemia. Skin: Extremities are warm and have brisk capillary refill. No rashes, lesions or ulcers. No induration or subcutaneous nodules. Lymph nodes: Cervical and supraclavicular nodes normal Neurologic the: CN 2-12 Grossly intact. DTRs +2 throughout. Sensation to touch is intact. Psychiatric: Mood and affect appropriate, Appropriate judgment and insight. Alert and oriented. : Recent Results (from the past 24 hours) Comprehensive metabolic panel Collection Time: 12/03/24 5:25 AM Result Value Ref Range SODIUM 133 (L) 134 - 146 mmol/L POTASSIUM 4.3 3.5 - 5.0 mmol/L CHLORIDE 101 98 - 109 mmol/L CARBON DIOXIDE 21 (L) 22 - 32 mmol/L ANION GAP 11 5 - 15 mmol/L BLOOD UREA NITROGEN 21 5 - 23 mg/dL CREATININE 1.40 (H) 0.40 - 1.00 mg/dL GLUCOSE 640 (HH) 65 - 99 mg/dL CALCIUM 8.1 (L) 8.5 - 10.5 mg/dL TOTAL PROTEIN 6.0 6.0 - 8.0 g/dL ALBUMIN 3.4 3.2 - 5.3 g/dL ALKALINE PHOSPHATASE 104 39 - 130 U/L AST 11 <=41 U/L ALT 10 <=31 U/L BILIRUBIN,TOTAL 0.4 0.3 - 1.2 mg/dL EGFR Non-Race Dependent 47 (L) >=60 ml/min/1.73sq.m CBC auto differential Collection Time: 12/03/24 5:25 AM Result Value Ref Range WBC 7.1 4 - 11 x10E9/L RBC Count 4.24 3.8 - 5.2 X10E12/L Hemoglobin 13.2 11.7 - 15.5 g/dL Hematocrit 38.7 35 - 47 % MCV 91 80 - 100 fL MCH 31.0 27 - 34 pg MCHC 34.0 32 - 36 g/dL RDW 13.5 11.5 - 15 % Platelet Count 234 150 - 450 X10E9/L MPV 8.2 7 - 12 fL Neutrophils % 66.5 % Lymphocytes % 24.3 % Monocytes % 6.1 % Eosinophils % 2.1 % Basophils % 1.0 % Neutrophils Absolute (A) 4.7 1.5 - 6.6 10*3/uL Lymphocytes Absolute 1.7 1.0 - 3.5 10*3/uL Monocytes Absolute 0.4 0.0 - 0.9 10*3/uL Eosinophils Absolute 0.1 0.0 - 0.4 10*3/uL Basophils Absolute 0.1 0.0 - 0.2 10*3/uL Differential Type AUTOMATED DIFFERENTIAL Bedside Glucose *Place/Obtain serum glucose if >500 per glucometer. Collection Time: 12/03/24 7:26 AM Result Value Ref Range Bedside Glucose (POC) >500 (HH) 65 - 99 mg/dL Bedside Glucose *Place/Obtain serum glucose if >500 per glucometer. Collection Time: 12/03/24 7:28 AM Result Value Ref Range Bedside Glucose (POC) >500 (HH) 65 - 99 mg/dL Bedside Glucose *Place/Obtain serum glucose if >500 per glucometer. Collection Time: 12/03/24 9:36 AM Result Value Ref Range Bedside Glucose (POC) 409 (HH) 65 - 99 mg/dL Imaging Imaging has been reviewed in detail and can be seen in full via EMR. Echo complete W/ contrast Left Ventricle: Left ventricle appears normal in size. There is mild increased wall thickness/hypertrophy. Systolic function is normal with an ejection fraction of 60-65%. Left Atrium: Left atrium is normal in size. The left atrial volume index is 18.1 mL/m2. Agitated saline bubble study revealed no evidence of right to left interatrial shunting . No significant valvular stenosis or regurgitation. Assessment and Plan Active Hospital Problems Diagnosis Date Noted Sudden loss of vision 12/03/2024 Hyperosmolar hyperglycemic state (HHS) ([facility]) 12/03/2024 SOLO (acute kidney injury) 12/03/2024 Resolved Problems No resolved problems to display. - HHS - BG 640 - uncontrolled diabetes mellitus type 2 with noncompliance - previously on insulin pump now has been off for few months and self manages with insulin NovoLog 30 units subQ b.i.d. at home without checking blood glucose? - Check HbA1c. - I started the patient on insulin drip and IV fluids. Monitor blood glucose q.1 hour. Monitor electrolytes q.2 hours x3 then q.4 hours afterwards. We will have to adjust the IV fluids accordingly. - Once her hyperglycemia has improved and symptoms resolved we will transition her to basal-prandial insulin here at the hospital. - She will need to establish care with endocrinology as outpatient. She is interested in following up with [facility]. If she is able to bring he insulin pump to the hospital then we can consult endocrinology and see if the can restart her pump prior to discharge. - Acute onset painless bilateral vision loss - History of left eye vision loss due to retinal hemorrhage - I think her symptoms are very likely related to the hyperglycemia/HHS. CT brain is negative for acute changes CTA head and neck was not done due to contrast allergy and patient refusal Management is per primary neurology team. MRI brain was ordered Ophthalmology was consulted. - SOLO: - Non-anion gap metabolic acidosis: This is likely prerenal in the setting of HHS /hypovolemic state IV fluid resuscitation Avoid nephrotoxic agents. Monitor BMP. Hypothyroidism Check TSH levels. Synthroid 75 mcg p.o. daily Obesity class 3 BMI 44.9 Counseling DVT prophylaxis: Heparin 5000 units subQ b.i.d.. Code Status: Full code. Disposition: To be determined later. Current care plan discussed in detail with the patient. She verbalized understanding. Further management will follow based on the clinical course of the patient and results of ongoing evaluation Thank you Dr. Vargas for allowing me to participate in the care of your patient. Electronically signed by: LIANNE MCCORMICK MD 12/03/2024 Preferred contact method: #1. Epic chat #2. PPH team pager Available from 7 am to 7 pm [facility] 12-03-2024 History and physical note Images from the original note were not included. [facility] Neurology General Neurology Primary Admission Note Primary Neurology service: [phone] Chief Complaint: Vision loss History: Addie Jean Baptiste is a 49 y.o. year old female who was admitted to inpatient Neurology for chief complaint of vision loss. 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 Patient initially presented to outside ER for sudden onset vision loss. She states that today when she attempted to stand up, her legs felt like wet noodles . She states that she developed vision loss in both eyes at the same time. She states that she was running into [place] and subsequently called her son for help. She notes that her vision completely blacked out and she was not able to see anything. She denies any associated headache or pain in the eyes. Patient additionally states that when EMS arrived, she had a witnessed seizure was reportedly lasted for around [address] brain at outside facility was negative for any acute intracranial pathologies. CTA head and neck could not be obtained due to contrast allergy and patient refusal. Per intake note, patient was very sleepy at the outside facility. Patient had reported that she can not see any movement, color or light through her eyes. Patient was additionally noticed to be very hyperglycemic at [facility]. Patient was transferred to [facility] for further management. Upon arrival to [facility], patient notes that her vision is still very blurry but it has improved significantly. Per chart review, patient had episode of left eye vision loss in October 2023 when she was seen at [facility]. There was concern for macular edema and retinal hemorrhage at that time. Patient was advised to go to the ER for stroke workup at that time, however the MRI brain available in the system for review afterwards. She states that her vision had improved in the left eye afterwards. Regarding her history of seizures, she states that she has frequent staring episodes. She notes that she has not been compliant with the medications for the last 1-2 months. She notes that she is on Keppra for management of seizures. Past Medical History/Surgical History: Active Ambulatory Problems Diagnosis Date Noted Right leg weakness 03/05/2022 Resolved Ambulatory Problems Diagnosis Date Noted No Resolved Ambulatory Problems Past Medical History: Diagnosis Date Arrhythmia Arthritis Bipolar disorder ([facility]) Bronchitis, chronic ([facility]) Chronic constipation Chronic kidney disease Depression Diabetes mellitus type 2, controlled ([facility]) Meningitis Family History: No family history on file. Social History: Social History Socioeconomic History Marital status: Spouse name: Not on file Number of children: Not on file Years of education: Not on file Highest education level: Not on file Occupational History Not on file Tobacco Use Smoking status: Former Smokeless tobacco: Never Substance and Sexual Activity Alcohol use: No Drug use: No Sexual activity: Defer Other Topics Concern Not on file Social History Narrative Not on file Social Drivers of Health Financial Resource Strain: Low Risk (10/01/2024) Received from [facility] Overall Financial Resource Strain (CARDIA) Difficulty of Paying Living Expenses: Not hard at all Food Insecurity: No Food Insecurity (10/01/2024) Received from [facility] Hunger Vital Sign Within the past 12 months, you worried that your food would run out before you got the money to buy more.: Never true Ran Out of Food in the Last Year: Not on file Transportation Needs: No Transportation Needs (10/01/2024) Received from [facility] Transportation In the past 12 months, has lack of transportation kept you from medical appointments or from getting medications?: No Lack of Transportation (Non-Medical): Not on file Physical Activity: Not on file Stress: Not on file Social Connections: Not on file Interpersonal Safety: Unknown (10/01/2024) Received from [facility] Humiliation, Afraid, Rape, and Kick questionnaire Fear of Current or Ex-Partner: No Emotionally Abused: Not on file Physically Abused: Not on file Sexually Abused: Not on file Housing Instability: Low Risk (10/01/2024) Received from [facility] Housing Stability Vital Sign In the last 12 months, was there a time when you were not able to pay the mortgage or rent on time?: No Number of Times Moved in the Last Year: Not on file At any time in the past 12 months, were you homeless or living in a fci (including now)?: No Medications: None Allergies: Allergies Allergen Reactions Darvocet A500 [Propoxyphene N-Acetaminophen] Vomiting Tramadol Hives Adhesive Tape-Silicones Dye Ibuprofen Latex Vancomycin Codeine Toradol [Ketorolac] Hives Complete Review of Systems: Constitutional: No Weight Change, No Fever, No Chills, No Night Sweats, No Fatigue/Malaise Eyes: No Eye Pain, No Redness, No Discharge, No Vision Changes, No blurred vision, no double vision Cardiovascular: No Chest Pain, No SOB, No PND, No Orthopnea, No Palpitations Respiratory: No Cough, No Sputum, No Wheezing, No Dyspnea Gastrointestinal: No Nausea/Vomiting, No Diarrhea, No Constipation, No Dysphagia, No Hematochezia/Melena Genitourinary: No Dysuria, No Urinary Frequency, No Hematuria, No Incontinence, No Urgency, No Urinary Flow Changes Musculoskeletal: No Arthralgias, No Myalgias, No Joint Swelling/Joint Stiffness, No Back Pain, No Neck Pain Neuro: No Weakness, No Numbness, No Paresthesias, No Loss of Consciousness, No Syncope, No Dizziness, No Headache, No Recent Falls Psych: No Anxiety/Panic, No Depression, No Insomnia, No Personality Changes, No Delusions, No Rumination, No SI/HI, No Memory Changes Heme/Lymph: No Bruising, No Bleeding Physical Exam Vital Signs: There were no vitals filed for this visit. General: Normotensive, in no acute distress. Cardiac Examination: Heart: RRR, no murmurs, no rubs, no gallops. Carotids: No bruit Peripheral Vascular System: Peripheral pulses intact Neurological Examination: Higher Mental Function: Orientated to time, place, person Attention span and concentration intact Recent and Remote Memory Intact Language intact Fund of knowledge appropriate Ophthalmological Examination: Clear conjunctiva, no cataracts. Undilated ophthalmoscopic examination unrevealing. Cranial Nerve Examination: II: Normal tracking, patient was difficulty with the finger counting through both eyes. Color desaturation noted, only able to read 1 plate. Visual acuity 20/200 in the left eye, 20/70 in the right eye. III, IV, & : EOM intact, no ptosis, no nystagmus seen. Pupils are equal and reactive to light. V: Facial sensation is intact. VII: no facial asymmetry, facial movement intact. VIII: hearing is normal. IX-X: Palate elevates in the midline. XI: Normal trapezius strength and/or movement. XII: Tongue movement is normal, position is midline and no fasciculations are observed. Tongue strength intact. Motor: Power -- No focal motor weakness noted in BL upper or lower extremities. Bulk and muscle tone are intact in BL upper and lower extremities. No rigidity or spasticity. No atrophy or abnormal movements noted. No dystonia, or motor tics. No bradykinesia, postural or kinetic tremor noted. No fasciculation or myotonia noted. No abnormal movements noticed. No evidence of pseudo bulbar paralysis; no sialorrhea, difficulties swallowing. There were no tremors seen Deep Tendon Reflexes: 1/4 throughout Sensory examination: Intact to light touch throughout. 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 Patient presented to an outside facility due to sudden-onset vision loss in both eyes not associated with pain. CT brain was negative for any acute intracranial pathologies. CTA head and neck not obtained due to contrast allergy and patient refusal. Impression: Bilateral vision loss, unclear etiology Plan: Admit the patient to general Neurology. Obtain MRI brain with and without contrast. Consult Ophthalmology, appreciate recommendations. Consult Medicine for management of hyperglycemia, appreciate recommendations. Resume home Keppra 750 mg b.i.d. Daily CBC, BMP. Hanna Mari MD PGY3 Neurology [facility] Staffed with: (Dr Vargas) This patient is being followed by the Neurology Resident service. Contact attending directly during these hours: Thursday to 7:30-8:30 A.M. to Thursday 12-1:00 p.m. Primary Neurology service: [phone] Consult neurology service: [phone] Resident Stroke Service: [phone] If the patient belongs to the Stroke [facility] service please contact the Stroke [facility] directly. Cosigned by Vanessa Vargas MD at 12/03/2024 6:02 PM EDT Associated attestation - Vanessa Vargas MD - 12/03/2024 6:02 PM EDT I reviewed the resident's note and discussed the case with the resident. This specific service will not be billed. Additional findings/notes: case was discussed over the phone [employer] Work Phone: 12-03-2024 History and physical note Images from the original note were not included. [facility] Neurology General Neurology Primary Admission Note Primary Neurology service: [phone] Chief Complaint: Vision loss History: Addie Jean Baptiste is a 49 y.o. year old female who was admitted to inpatient Neurology for chief complaint of vision loss. 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 Patient initially presented to outside ER for sudden onset vision loss. She states that today when she attempted to stand up, her legs felt like wet noodles . She states that she developed vision loss in both eyes at the same time. She states that she was running into [place] and subsequently called her son for help. She notes that her vision completely blacked out and she was not able to see anything. She denies any associated headache or pain in the eyes. Patient additionally states that when EMS arrived, she had a witnessed seizure was reportedly lasted for around [address] brain at outside facility was negative for any acute intracranial pathologies. CTA head and neck could not be obtained due to contrast allergy and patient refusal. Per intake note, patient was very sleepy at the outside facility. Patient had reported that she can not see any movement, color or light through her eyes. Patient was additionally noticed to be very hyperglycemic at [facility]. Patient was transferred to [facility] for further management. Upon arrival to [facility], patient notes that her vision is still very blurry but it has improved significantly. Per chart review, patient had episode of left eye vision loss in October 2023 when she was seen at [facility]. There was concern for macular edema and retinal hemorrhage at that time. Patient was advised to go to the ER for stroke workup at that time, however the MRI brain available in the system for review afterwards. She states that her vision had improved in the left eye afterwards. Regarding her history of seizures, she states that she has frequent staring episodes. She notes that she has not been compliant with the medications for the last 1-2 months. She notes that she is on Keppra for management of seizures. Past Medical History/Surgical History: Active Ambulatory Problems Diagnosis Date Noted Right leg weakness 03/05/2022 Resolved Ambulatory Problems Diagnosis Date Noted No Resolved Ambulatory Problems Past Medical History: Diagnosis Date Arrhythmia Arthritis Bipolar disorder ([facility]) Bronchitis, chronic ([facility]) Chronic constipation Chronic kidney disease Depression Diabetes mellitus type 2, controlled ([facility]) Meningitis Family History: No family history on file. Social History: Social History Socioeconomic History Marital status: Spouse name: Not on file Number of children: Not on file Years of education: Not on file Highest education level: Not on file Occupational History Not on file Tobacco Use Smoking status: Former Smokeless tobacco: Never Substance and Sexual Activity Alcohol use: No Drug use: No Sexual activity: Defer Other Topics Concern Not on file Social History Narrative Not on file Social Drivers of Health Financial Resource Strain: Low Risk (10/01/2024) Received from [facility] Overall Financial Resource Strain (CARDIA) Difficulty of Paying Living Expenses: Not hard at all Food Insecurity: No Food Insecurity (10/01/2024) Received from [facility] Hunger Vital Sign Within the past 12 months, you worried that your food would run out before you got the money to buy more.: Never true Ran Out of Food in the Last Year: Not on file Transportation Needs: No Transportation Needs (10/01/2024) Received from [facility] Transportation In the past 12 months, has lack of transportation kept you from medical appointments or from getting medications?: No Lack of Transportation (Non-Medical): Not on file Physical Activity: Not on file Stress: Not on file Social Connections: Not on file Interpersonal Safety: Unknown (10/01/2024) Received from [facility] Humiliation, Afraid, Rape, and Kick questionnaire Fear of Current or Ex-Partner: No Emotionally Abused: Not on file Physically Abused: Not on file Sexually Abused: Not on file Housing Instability: Low Risk (10/01/2024) Received from [facility] Housing Stability Vital Sign In the last 12 months, was there a time when you were not able to pay the mortgage or rent on time?: No Number of Times Moved in the Last Year: Not on file At any time in the past 12 months, were you homeless or living in a fci (including now)?: No Medications: None Allergies: Allergies Allergen Reactions Darvocet A500 [Propoxyphene N-Acetaminophen] Vomiting Tramadol Hives Adhesive Tape-Silicones Dye Ibuprofen Latex Vancomycin Codeine Toradol [Ketorolac] Hives Complete Review of Systems: Constitutional: No Weight Change, No Fever, No Chills, No Night Sweats, No Fatigue/Malaise Eyes: No Eye Pain, No Redness, No Discharge, No Vision Changes, No blurred vision, no double vision Cardiovascular: No Chest Pain, No SOB, No PND, No Orthopnea, No Palpitations Respiratory: No Cough, No Sputum, No Wheezing, No Dyspnea Gastrointestinal: No Nausea/Vomiting, No Diarrhea, No Constipation, No Dysphagia, No Hematochezia/Melena Genitourinary: No Dysuria, No Urinary Frequency, No Hematuria, No Incontinence, No Urgency, No Urinary Flow Changes Musculoskeletal: No Arthralgias, No Myalgias, No Joint Swelling/Joint Stiffness, No Back Pain, No Neck Pain Neuro: No Weakness, No Numbness, No Paresthesias, No Loss of Consciousness, No Syncope, No Dizziness, No Headache, No Recent Falls Psych: No Anxiety/Panic, No Depression, No Insomnia, No Personality Changes, No Delusions, No Rumination, No SI/HI, No Memory Changes Heme/Lymph: No Bruising, No Bleeding Physical Exam Vital Signs: There were no vitals filed for this visit. General: Normotensive, in no acute distress. Cardiac Examination: Heart: RRR, no murmurs, no rubs, no gallops. Carotids: No bruit Peripheral Vascular System: Peripheral pulses intact Neurological Examination: Higher Mental Function: Orientated to time, place, person Attention span and concentration intact Recent and Remote Memory Intact Language intact Fund of knowledge appropriate Ophthalmological Examination: Clear conjunctiva, no cataracts. Undilated ophthalmoscopic examination unrevealing. Cranial Nerve Examination: II: Normal tracking, patient was difficulty with the finger counting through both eyes. Color desaturation noted, only able to read 1 plate. Visual acuity 20/200 in the left eye, 20/70 in the right eye. III, IV, & : EOM intact, no ptosis, no nystagmus seen. Pupils are equal and reactive to light. V: Facial sensation is intact. VII: no facial asymmetry, facial movement intact. VIII: hearing is normal. IX-X: Palate elevates in the midline. XI: Normal trapezius strength and/or movement. XII: Tongue movement is normal, position is midline and no fasciculations are observed. Tongue strength intact. Motor: Power -- No focal motor weakness noted in BL upper or lower extremities. Bulk and muscle tone are intact in BL upper and lower extremities. No rigidity or spasticity. No atrophy or abnormal movements noted. No dystonia, or motor tics. No bradykinesia, postural or kinetic tremor noted. No fasciculation or myotonia noted. No abnormal movements noticed. No evidence of pseudo bulbar paralysis; no sialorrhea, difficulties swallowing. There were no tremors seen Deep Tendon Reflexes: 1/4 throughout Sensory examination: Intact to light touch throughout. 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 Patient presented to an outside facility due to sudden-onset vision loss in both eyes not associated with pain. CT brain was negative for any acute intracranial pathologies. CTA head and neck not obtained due to contrast allergy and patient refusal. Impression: Bilateral vision loss, unclear etiology Plan: Admit the patient to general Neurology. Obtain MRI brain with and without contrast. Consult Ophthalmology, appreciate recommendations. Consult Medicine for management of hyperglycemia, appreciate recommendations. Resume home Keppra 750 mg b.i.d. Daily CBC, BMP. Hanna Mari MD PGY3 Neurology [facility] Staffed with: (Dr Vargas) This patient is being followed by the Neurology Resident service. Contact attending directly during these hours: Thursday to 7:30-8:30 A.M. to Thursday 12-1:00 p.m. Primary Neurology service: [phone] Consult neurology service: [phone] Resident Stroke Service: [phone] If the patient belongs to the Stroke [facility] service please contact the Stroke [facility] directly. Cosigned by Vanessa Vargas MD at 12/03/2024 6:02 PM EDT Associated attestation - Vanessa Vargas MD - 12/03/2024 6:02 PM EDT I reviewed the resident's note and discussed the case with the resident. This specific service will not be billed. Additional findings/notes: case was discussed over the phone documented in this encounter [facility] 11-21-2024 Telephone encounter Note Adelina 10/24/24 [facility] 11-21-2024 Miscellaneous Notes Adelina 10/24/24 documented in this encounter [facility] 11-04-2024 History of Present illness Narrative Opened for pre-charting. Patient not seen today, no show. documented in this encounter [facility] 10-11-2024 Telephone encounter Note Pt informed of rx sent. Pharmacy updated to verify new rx and verbalized understanding. Will fill for pt today. [facility] 10-11-2024 Miscellaneous Notes Pt informed of rx sent. Pharmacy updated to verify new rx and verbalized understanding. Will fill for pt today. Patient was given 14 day supply on 09/23/24 pending UDS results (in media, consistent) so she would have been due to fill on 10/07/24. This RX is written to be filled on 10/23/24, ALSO - it is also only written for 14 day supply. Please correct and resend. Pt is asking for a prior auth for water therapy in [place] where [place] lives now. pt will call back with information of faclity. Adelina 09/23/24 documented in this encounter [facility] 10-10-2024 Telephone encounter Note Patient was given 14 day supply on 09/23/24 pending UDS results (in media, consistent) so she would have been due to fill on 10/07/24. This RX is written to be filled on 10/23/24, ALSO - it is also only written for 14 day supply. Please correct and resend. [facility] 10-06-2024 Telephone encounter Note Pt is asking for a prior auth for water therapy [place] This is where pt lives now. pt will call back with information of faclity. [facility] 10-06-2024 Telephone encounter Note Adelina 09/23/24 [facility] 10-05-2024 Note RACQUEL notified that grace reis is ready for discharge. Dtr cannot transport her home. Pt called [employer] transportation line and speaker call made to schedule transport home. Address corrected in [facility] system to [facility]. Updates sent to [facility] providers to seek out accepting provider with new home address. Awaiting accepting provider. SW added information to AVS that we will call patient once we receive responses from [facility]. 5pm. Patient missed [facility]. She tried to reach out to insurance again but placed on hold. sheet metal supervisor agreed to call [employer] for patient to get her home. Th10/06/24 SW has not rec'd any accepting [facility] out of 22 referrals. SW attempted to call patient -VM was full unable to leave a message. SW attempted to call dtr-no answer. No home health has been located for this patient. [facility] 10-05-2024 Note Physical Therapy Physical Therapy Treatment Patient Name: Addie Jean Baptiste : 1975 Today's Date: 10/05/2024 Patient Active Problem List Diagnosis NSTEMI (non-ST elevated myocardial infarction) ([facility]) Type 2 diabetes mellitus with circulatory disorder, with long-term current use of insulin ([facility]) Sick sinus syndrome ([facility]) Acute renal failure with acute tubular necrosis superimposed on stage 3a chronic kidney disease ([facility] Seizure ([facility] Bipolar 1 disorder ([facility]) Acquired hypothyroidism Class 3 severe obesity due to excess calories with serious comorbidity and body mass index (BMI) of 50.0 to 59.9 in adult Plantar ulcer of left foot, limited to breakdown of skin ([facility]) Hypocalcemia Start Time: 1348 Stop Time: 1407 Time Calculation (min): 19 min PT Therapeutic Procedures Time Entry Therapeutic Activity Time Entry: 19 Objective General Visit Information: PT Last Visit PT Received On: 10/05/24 General Subjective: I was hoping to take a nap. Pt has d/c orders and summary completed. Isael ELDER reports pt is leaving and dtr will be coming to pick pt up. Pt is noted to be sleepy with delayed processing. Pt reports w/c does not fit in bathroom and ambulates with cane short distances. Pt reports RW will fit in bathroom; RW already delivered to room. Session Comments: Pt is sleepy throughout but ambulates to chair to eat lunch then will call for assistance back to bed. Pt denies concerns for discharge home and reports adult dtr is available to assist at all times, including on 3-4 steps to enter home. Pt becomes frustrated with typewriter operator automatic's questions re: PLOF, home safety, assistance needs and states I'm not an invalid. I'm not a baby . Precautions Precautions Medical Precautions: bed alarm, chair alarm, fall risk, telemetry Pain Pain Assessment Pain Assessment: No/denies pain Pain Score: 0 - No pain Cognition Cognition Overall Cognitive Status: Impaired Arousal/Alertness: Delayed responses to stimuli Following Commands: Follows one step commands with increased time Safety Judgment: Decreased awareness of need for safety Awareness of Errors: Decreased awareness of errors, Assistance required to identify errors made Deficits: Decreased awareness of deficits Attention Span: Appears intact Problem Solving: Assistance required to identify errors made, Assistance required to generate solutions Communication: Intact General Assessment Static Sitting Balance Static Sitting Balance Static Sitting-Balance Support: Feet supported Static Sitting-Level of Assistance: Close supervision Dynamic Sitting Balance Dynamic Sitting Balance Dynamic Sitting-Balance Support: Feet supported Dynamic Sitting Balance-Level of Assistance: Close supervision Static Standing Balance Static Standing Balance Static Standing-Balance Support: Right upper extremity supported, Left upper extremity supported, With device (RW) Static Standing-Level of Assistance: Close supervision Dynamic Standing Balance Dynamic Standing Balance Dynamic Standing-Balance Support: Right upper extremity supported, Left upper extremity supported, With device (RW) Dynamic Standing Balance-Level of Assistance: Close supervision General Assessments: Activity Tolerance Endurance: Stage II Activity Tolerance Comments: Pt is able to stay awake and follows cues during session although sleepy and wants to take a nap. Cognition Overall Cognitive Status: Impaired Arousal/Alertness: Delayed responses to stimuli Following Commands: Follows one step commands with increased time Safety Judgment: Decreased awareness of need for safety Awareness of Errors: Decreased awareness of errors, Assistance required to identify errors made Deficits: Decreased awareness of deficits Attention Span: Appears intact Problem Solving: Assistance required to identify errors made, Assistance required to generate solutions Communication: Intact Treatment: Therapeutic Activity Therapeutic Activity Time Entry: 19 Ambulation Ambulation: Yes Ambulation 1 Surface 1: Level tile Device 1: Rolling walker Assistance 1: Close supervision Quality of Gait 1: Pt takes few steps bed to chair with RW ~3 ft. No LOB, cues for hand placement and alignment with chair. Stairs Stairs: No (Pt defers stair training. Reports she will have dtr's assistance and denies concerns) Bed Mobility Bed Mobility: Yes Bed Mobility 1 Bed Mobility From 1: Supine (HOB slightly elevated) Bed Mobility Type 1: To Bed Mobility to 1: Short sit Level of Assistance 1: Close supervision (Increased time and effort required. Uses bed rail for coming to upright position. Reports she sleeps on couch at home) Transfers Ambulation comments: Pt ambulates bed to chair with RW SBA ~3 ft Transfer: Yes Transfer 1 Transfer From 1: Bed Transfer Type 1: To Transfer to 1: Stand Techniq (more content not included)... [facility] 10-05-2024 Note Attestation signed by Leonardo Moyer MD at 10/05/2024 5:33 PM By using the attestations below, the signing clinician agrees that I have read and verify that the documentation has been personally reviewed by me and ensure that the documentation accurately reflects the encounter. GC: I personally saw this patient with Dr. John Correa at 1100 hours on the day of the encounter, performed the mckinnon portion(s) of the service and participated in the management and confirm the resident's documentation. Please note there may be additional personal documentation from me. Patient is sitting in chair no acute distress. Patient denies any new complaints. The creatinine is down to 1.28. We will sign off. Please call as needed. Leonardo Moyer MD, PhD Nephrology Progress Note Patient : Addie Jean Baptiste; 49 y.o. Location: 5160/5160-01 Attending: Maye rOtiz DO Admit Date: 10/01/2024 Hospital Day: 4 Reason for Consult: SOLO on CKD3 Subjective: Addie Jean Baptiste is an 49 y.o. 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 Patient has a known seizure disorder and is on chronic maintenance therapy with the Keppra 1 g twice daily. She states that the seizures episodes happen with frequently multiple times a week. She also reports of having episodes of intermittent substernal chest discomfort over the past week, moderate intensity 9/10, aching in nature sometimes lasting for few hours, self resolving, nonradiating, not associated other cardiac symptoms. She also reports generalized pain fibromyalgia/myofascial syndrome has been follows with pain medicine for pain control. She has a history of sick sinus syndrome status post pacemaker implantation in 2011, s/p right atrial extraction due to insulation break. She denies of having home transmitter system for the pacemaker system and had not had follow-up with the cardiology team over the past several years. Had a Lexiscan stress test in 02/18/2023 which showed a normal myocardial perfusion imaging. Last transthoracic echo done at outside hospital showed normal LV systolic function with EF 60 to 65%, no wall motion abnormalities, no significant valvular abnormalities. Her weight is a notable for blood pressure of 90/48 mmHg, pulse rate 92 bpm, temperature 97.9, SpO2 97% on room air. Basic labs notable for CBC with normal WBC, hemoglobin 12.8 g/dL, normal platelets. BMP notable for sodium 133/potassium 3.6, bicarb 26, creatinine 2.04, glucose 154 mg/dL, elevated lactate of 3.2. EKG showed sinus rhythm with nonspecific ST-T changes, right atrial enlargement. High sensitive troponin levels were noted to be elevated 180-->166 pg/mL. [facility] Cardiology was consulted from [place] ED and she is transferred here for further management. She has not been initiated on heparin infusion. Interval history: 10/05/24 Patient seen and examined. No acute events. Renal function continues to improve with lowering of serum creatinine. Plan for discharge today Objective: Input/Output: Intake/Output Summary (Last 24 hours) at 10/05/2024 1229 Last data filed at 10/04/2024 1706 Gross per 24 hour Intake 240 ml Output 500 ml Net -260 ml I/O last 3 completed shifts: In: 720 (5.1 mL/kg) [P.O.:720] Out: 1050 (7.5 mL/kg) [Urine:1050 (0.2 mL/kg/hr)] Weight: 140.2 kg Vital signs: Temperature: Temp: 36.1 ???C (97 ???F) TMax: Temp (24hrs), Av.4 ???C (97.5 ???F), Min:36.1 ???C (97 ???F), Max:36.8 ???C (98.2 ???F) Respirations: Resp: 12 Pulse: Heart Rate: 60 BP: BP: 103/67 BP Range: Systolic (24hrs), Av , Min:96 , Max:119 Diastolic (24hrs), Av, Min:47, Max:67 Wt Readings from Last 3 Encounters: 10/05/24 (!) 140 kg (309 lb) 09/29/19 99.8 kg (220 lb) Physical Exam Constitutional: Appearance: Normal appearance. HENT: Head: Normocephalic and atraumatic. Cardiovascular: Rate and Rhythm: Normal rate and regular rhythm. Pulses: Normal pulses. Heart sounds: Normal heart sounds. Pulmonary: Breath sounds: Normal breath sounds. Abdominal: General: Abdomen is flat. Palpations: Abdomen is soft. Musculoskeletal: Right lower leg: No edema. Left lower leg: No edema. Neurological: Mental Status: She is alert. Current Medications: Scheduled Meds: aspirin, 81 m (more content not included)... [facility] 10-05-2024 Note Hospital Medicine Discharge Summary Final Discharge Diagnosis: NSTEMI (non-ST elevated myocardial infarction) (CMS/HCC) due to demand ischemia Type 2 diabetes mellitus with circulatory disorder, with long-term current use of insulin (CMS/HCC) Sick sinus syndrome (CMS/HCC) Acute renal failure with acute tubular necrosis superimposed on stage 3a chronic kidney disease (CMS/HCC) Seizure (CMS/HCC) Bipolar 1 disorder (CMS/HCC) Acquired hypothyroidism Class 3 severe obesity due to excess calories with serious comorbidity and body mass index (BMI) of 50.0 to 59.9 in adult Plantar ulcer of left foot, limited to breakdown of skin ([facility]) Hypocalcemia Admission Diagnosis: NSTEMI (non-ST elevated myocardial infarction) ([facility]/HCC) [I21.4] Hospital course: Addie Jean Baptiste is an 49 y.o. 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 Patient has a known seizure disorder and is on chronic maintenance therapy with the Keppra 1 g twice daily. She states that the seizures episodes happen with frequently multiple times a week. She also reports of having episodes of intermittent substernal chest discomfort over the past week, moderate intensity 9/10, aching in nature sometimes lasting for few hours, self resolving, nonradiating, not associated other cardiac symptoms. Basic labs notable for CBC with normal WBC, hemoglobin 12.8 g/dL, normal platelets. BMP notable for sodium 133/potassium 3.6, bicarb 26, creatinine 2.04, glucose 154 mg/dL, elevated lactate of 3.2. EKG showed sinus rhythm with nonspecific ST-T changes, right atrial enlargement. High sensitive troponin levels were noted to be elevated 180-->166 pg/mL. NSTEMI (non-ST elevated myocardial infarction) ([facility]/HCC) - cards consulted - likely demand ischemia in setting of acute kidney injury, and seizure episode and elevated lactate. No current indication for heparin as her troponin is trending downward and patient is asymptomatic and having epistaxis. Aspirin 81 mg daily and Toprol 50 mg. Echo was done, Left Ventricle: The left ventricle appears normal [...] Very limited windows due to patient body Type 2 diabetes mellitus with circulatory disorder, with long-term current use of insulin ([facility]) - HgbA1C 10.7 - in insulin pump at home - may resume medications at discharge Sick sinus syndrome ([facility]) - s/p pacemaker - interrogation ordered- did review interrogation report with cardiology. Report is stable. No issues seen on report Acute renal failure with acute tubular necrosis superimposed on stage 3a chronic kidney disease ([facility]) -Cr improved today to 1.26 - renal US negative - neph consulted during the stay. Patient did improve. Recommend to follow up outpatient Seizure ([facility]) - neuro consulted at admission - Continue LEV 1g BID at least until outpt neuro follow up - Patient will need referral to [facility] neurology (for epileptologist) at discharge. - Neuro will sign off. Bipolar 1 disorder ([facility]) - continue celexa 40mg daily - continue pamelor 25mg nightly - continue seroquel 400mg nightly Acquired hypothyroidism - last TSH 3.71 - cont levothyroxine 75mcg daily Class 3 severe obesity due to excess calories with serious comorbidity and body mass index (BMI) of 50.0 to 59.9 in adult - encourage weight loss - may benefit from a GLP-1 inhibitor, defer to PCP Plantar ulcer of left foot, limited to breakdown of skin ([facility]) - vascular surgery consulted No plans for debridement at this time. No antibiotics necessary. Upon inspection today this is not ulcer but rather a dry callus, no open tissue present. Recommend to keep callus clean and dry and follow up outpatient follow up with her recreation specialist for routine callus paring. No need for paring this admission. Arter (more content not included)... [facility] 10-04-2024 Note SW requested with gudelia alvarado consult today for [facility]. Patient has hx of a provider that served [employer] that drove the [employer] . She said it was [place] something . Referral made to [facility]. Patient states she doesn't have current svs and is ok even if they were not the previous provider. SW following. Note: patient has a wheelchair at home but states she does not have a walker. She thinks she had one but no longer has one. Wheelchair rec'd 2-3 yrs ago. She will be unable to get one through insurance due to 5 yr look back. SW advised she will look for donated walker for discharge if available. [facility] 10-04-2024 Note Occupational Therapy Occupational Therapy Evaluation Patient Name: Addie Jean Baptiste : 1975 Today's Date: 10/04/2024 Start Time: 1345 Stop Time: 1413 Time Calculation (min): 28 min OT Evaluation Time Entry OT Evaluation (Moderate) Time Entry: 28 General Subjective: Patient stated she was recently evicted from her home in [place]. Patient is now living with her sister in [place]. Patient agreed to get up to the chair with encouragement. Patient reported she was very tired and did not want to remain in the chair. At conclusion, patient returned to chair. Patient Summary: Patient is a 49 year old female who presented to ER on 10/01/24 following tonic-clonic seizure and episode of vomitting. Patient also reported sternal chest discomfort forlast week and was found to have NSTEMI. Patient has diagnosis of NSTEMI, DM2, Sick Sinus Syndrome, ARF, Seizures, Bipolar, Hypothyroid, Plantar ulcer L foot OT Diagnosis: Decreased independence with ADLS and Mobility secondary to weakness, seizures. Patient Active Problem List Diagnosis NSTEMI (non-ST elevated myocardial infarction) ([facility]) Type 2 diabetes mellitus with circulatory disorder, with long-term current use of insulin ([facility]) Sick sinus syndrome ([facility]/HCC) Acute renal failure with acute tubular necrosis superimposed on stage 3a chronic kidney disease ([facility]/HCC) Seizure ([facility]/HCC) Bipolar 1 disorder ([facility]/HCC) Acquired hypothyroidism Class 3 severe obesity due to excess calories with serious comorbidity and body mass index (BMI) of 50.0 to 59.9 in adult Plantar ulcer of left foot, limited to breakdown of skin ([facility]/HCC) Hypocalcemia Past Medical History: Diagnosis Date Anxiety Bipolar 1 disorder (CMS/HCC) Cardiac arrest ([facility]/HCC) 2019 Chronic back pain Chronic kidney disease Coronary artery disease Depression Diabetes mellitus (CMS/HCC) Hypertension Insomnia Pacemaker Schizoaffective disorder (CMS/HCC) Seizures ([facility]/HCC) Stroke ([facility]/HCC) Past Surgical History: Procedure Laterality Date CARDIAC PACEMAKER PLACEMENT CHOLECYSTECTOMY HYSTERECTOMY TOE AMPUTATION Precautions Precautions Medical Precautions: bed alarm, chair alarm, fall risk, luque, IV, telemetry Pain Pain Assessment Pain Assessment: 0-10 Pain Score: 9 Pain Type: Chronic pain Pain Location: Foot Pain Orientation: Right, Left Cognition Cognition Overall Cognitive Status: Impaired Arousal/Alertness: Delayed responses to stimuli (Patient was lethargic) Orientation Level: Oriented X4 Following Commands: Follows one step commands with increased time, Follows one step commands with repetition Safety Judgment: Decreased awareness of need for assistance, Decreased awareness of need for safety Awareness of Errors: Assistance required to identify errors made, Assistance required to correct errors made Deficits: Decreased awareness of deficits Attention Span: Attends with cues to redirect, Difficulty attending to directions Memory: Decreased recall of precautions, Decreased short term memory Problem Solving: Assistance required to identify errors made, Assistance required to generate solutions, Assistance required to implement solutions Communication: Intact General Assessment General Assessment Hearing: WFL Skin Integrity: Patient had a plantar ulcer which looked like a hard callus on bottom of L foot. Patient had small scabbed area on middle of chest. Edema: Mild edema in B LE Hand Dominance: Right Home Living Home Living Type of Home: House Lives With: Family (Patient, her son and Daughter n law recently moved in with her daughter last week.) Home Adaptive Equipment: Cane, Wheelchair-manual Home Living Comments: Patient reports she sleeps on couch on first floor Home Layout: Two level, Able to live on main level with bedroom/bathroom Home Access: Stairs to enter with rails Entrance Stairs-Rails: Both Entrance Stairs-Number of Steps: 4 Bathroom Shower/Tub: Tub/shower unit, Curtain (Claw tub) Bathroom Toilet: Standard Bathroom Equipment: Grab bars in shower, Shower chair with back, Hand-held shower Bathroom Accessibility: Power w/c does not fit into bathroom Prior Level of Function Prior Function Level of Garrett: Independent with ADLs and functional transfers, Needs assistance with homemaking Prior Functional Mobility: Independent with wheelchair, Independent with cane (Patient reports she uses a PWC most of time but does use cane to walk into bathroom and occasionally outside.) History of Falls: Patient reports 6 falls in last 6 months. Patient reports her last fall was while walking across the yard with her cane and she stepped on uneven ground. Patient reports she needs a left TKA and occasionally her knees buckle causing her to fall. Receives Help From: Family ADL Assistance: Independent (Daughter supervises patient's shower but patient perfo (more content not included)... [facility] 10-04-2024 Note Physical Therapy Physical Therapy Evaluation Patient Name: Addie Jean Baptiste : 1975 Today's Date: 10/04/2024 Start Time: 1345 Stop Time: 1412 Time Calculation (min): 27 min PT Evaluation Time Entry PT Evaluation (Moderate) Time Entry: 27 General Subjective: I was hoping to take a nap. Session okay per RN. Pt supine in bed upon arrival, agreeable to PT session. Performed bed mobility, transfers, and minimal ambulation this date. Returned to supine in bed with bed alarm on, call lightt/tray nearby. RN aware Patient Summary: Pt is 49 y.o female presenting to [facility] ED following tonic-clonic seizure and episodes of vomiting. Pt has known seizure disorder and is on chronic maintenance therapy. States they happen multiple times a week. Also reports intermittent substernal chest discomfort for the last week. Pt with history of SSS s/p pacemaker. Found NSTEMI, likely demand ischemia in setting of SOLO, seizure episode, and elevated lactate PT Diagnosis: Decreased safety and independence with functional mobility Patient Active Problem List Diagnosis NSTEMI (non-ST elevated myocardial infarction) ([facility]) Type 2 diabetes mellitus with circulatory disorder, with long-term current use of insulin ([facility]/HCC) Sick sinus syndrome ([facility]/HCC) Acute renal failure with acute tubular necrosis superimposed on stage 3a chronic kidney disease (CMS/HCC) Seizure (CMS/HCC) Bipolar 1 disorder (CMS/HCC) Acquired hypothyroidism Class 3 severe obesity due to excess calories with serious comorbidity and body mass index (BMI) of 50.0 to 59.9 in adult Plantar ulcer of left foot, limited to breakdown of skin (CMS/HCC) Hypocalcemia Past Medical History: Diagnosis Date Anxiety Bipolar 1 disorder (CMS/HCC) Cardiac arrest (CMS/HCC) 2019 Chronic back pain Chronic kidney disease Coronary artery disease Depression Diabetes mellitus (CMS/HCC) Hypertension Insomnia Pacemaker Schizoaffective disorder (CMS/HCC) Seizures (CMS/HCC) Stroke (CMS/[facility]) Past Surgical History: Procedure Laterality Date CARDIAC PACEMAKER PLACEMENT CHOLECYSTECTOMY HYSTERECTOMY TOE AMPUTATION Precautions Precautions Medical Precautions: bed alarm, chair alarm, fall risk, luque, IV, telemetry Pain Pain Assessment Pain Assessment: 0-10 Pain Score: 9 Pain Type: Chronic pain Pain Location: Foot Pain Orientation: Right, Left Cognition Cognition Overall Cognitive Status: Impaired Arousal/Alertness: Delayed responses to stimuli Orientation Level: Oriented X4 Following Commands: Follows multistep commands with increased time, Follows multistep commands with repetition Safety Judgment: Decreased awareness of need for safety, Decreased awareness of need for assistance Awareness of Errors: Assistance required to identify errors made, Assistance required to correct errors made Deficits: Decreased awareness of deficits Attention Span: Attends with cues to redirect, Difficulty dividing attention Memory: Decreased short term memory, Decreased recall of precautions Problem Solving: Assistance required to identify errors made, Assistance required to generate solutions Communication: Intact Cognition Comments: Pt with significant increase in lethargy General Assessment General Assessment Hearing: WFL Skin Integrity: Scabbed area noted to middle chest Edema: Minimal to BLEs Hand Dominance: Right Home Living Home Living Type of Home: House Lives With: Family (Daughter, son, and [id number]) Home Living Comments: Pt states she was living with her son and DIL in [place] however the landlord kicked them out within the past week so they moved to [place] into her daughter's Home Layout: Two level, Able to live on main level with bedroom/bathroom Home Access: Stairs to enter with rails Entrance Stairs-Rails: Both Entrance Stairs-Number of Steps: 4 Bathroom Shower/Tub: Tub/shower unit (Clawfoot tub) Bathroom Toilet: Standard Bathroom Equipment: Grab bars in shower, Shower chair with back, Hand-held shower Bathroom Accessibility: Pt states PWC does not fit into bathroom Prior Level of Function Prior Function Level of Garrett: Independent with ADLs and functional transfers, Needs assistance with homemaking Prior Functional Mobility: Independent with wheelchair, Independent with cane (PWC most of the time. Cane where PWC does not fit) History of Falls: Pt reports 6 falls in the past 6 months Receives Help From: Family ADL Assistance: Independent (Daughter does supervise showers) Homemaking Assistance: Needs assistance (Family completes) Vision Basic Assessment Vision - Basic Assessment Visual History: Other (Comment) (Blind in L eye) Patient Visual Report: (Blurred vision with reading food menu in room) General Assessments Activity Tolerance Endurance: Stage II Stage II (METs 1.4-2.0) - Sittin-20 mins Number of Rest Breaks: 2 Act (more content not included)... [facility] 10-04-2024 Note - s/p pacemaker - interrogation ordered- asked RN to call rep [facility] 10-04-2024 Note - HgbA1C 10.7 - in insulin pump at home - Glu 96-211 - currently lantus 12 units bid - currently ISS [facility] 10-04-2024 Note - continue celexa 40 mg daily - continue pamelor 25mg nightly - continue seroquel 400mg nightly [facility] 10-04-2024 Note - encourage weight l oss - may benefit from a GLP-1 inhibitor, defer to PCP [facility] 10-04-2024 Note - cards consulted - likely demand ischemia in setting of acute kidney injury, and seizure episode and elevated lactate. [employer] device interrogation No current indication for heparin as her troponin is trending downward and patient is asymptomatic and having epistaxis. Aspirin 81 mg daily and Toprol 50 mg. Further recommendations to follow depending on echocardiogram results. [facility] 10-04-2024 Note - neuro consulted at admission - Continue LEV 1g BID at least until outpt neuro follow up - Patient will need referral to [facility] neurology (for epileptologist) at discharge. - Recommend PT/OT. - Neuro will sign off. [facility] 10-04-2024 Note - last TSH 3.71 - cont levothyroxine 75mcg daily [facility] 10-04-2024 Note - vascular surgery c onsulted No plans for debridement at this time. No antibiotics necessary. Upon inspection today this is not ulcer but rather a dry callus, no open tissue present. Recommend to keep callus clean and dry and follow up outpatient follow up with her recreation specialist for routine callus paring. No need for [...] up with our service at this time [facility] 10-04-2024 Note -Cr improved today t o 1.75 - renal US negative - neph consulted [facility] 10-04-2024 Note - Ca 8.2 today - daily CBC Consult PT/OT/BOX TENDER Will DC ene [facility] 10-04-2024 Note Hospital Medicine Daily Progress Note - 10/04/2024 12:12 PM; Room: [address] [place] [address] Admission: 10/01/2024 9:19 AM; Length of stay: 3 days THE HOSPITALIST TEAM PREFERS TO USE [employer] FOR NON-URGENT COMMUNICATION 7AM-7PM. IF I DO NOT RESPOND WITHIN 20 MINUTES OR URGENT MATTERS, PLEASE CALL THROUGH THE 3RD MATE. FROM 7PM-7AM, PLEASE PAGE [phone](COVR). Code Status: Full Code Barriers to Discharge: sleepiness, Expected Discharge Date: 2 - 3 days Discharge Destination: home Overview Addie Jean Baptiste is an 49 y.o. 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 Patient has a known seizure disorder and is on chronic maintenance therapy with the Keppra 1 g twice daily. She states that the seizures episodes happen with frequently multiple times a week. She also reports of having episodes of intermittent substernal chest discomfort over the past week, moderate intensity 9/10, aching in nature sometimes lasting for few hours, self resolving, nonradiating, not associated other cardiac symptoms. Basic labs notable for CBC with normal WBC, hemoglobin 12.8 g/dL, normal platelets. BMP notable for sodium 133/potassium 3.6, bicarb 26, creatinine 2.04, glucose 154 mg/dL, elevated lactate of 3.2. EKG showed sinus rhythm with nonspecific ST-T changes, right atrial enlargement. High sensitive troponin levels were noted to be elevated 180-->166 pg/mL. Subjective Currently in bed Family on facetime and did discusss with them and they report she does still seem groggy today. They report she does not move much around home and want to see her do more. They do not know last time her PM was interrogated. Patient denies CP, SOB Physical Exam Visit Vitals BP 100/65 (BP Location: Right wrist, Patient Position: Lying) Pulse 60 Temp 37.3 ???C (99.2 ???F) (Oral) Resp 17 Intake/Output Summary (Last 24 hours) at 10/04/2024 1212 Last data filed at 10/04/2024 0938 Gross per 24 hour Intake 1906.25 ml Output 850 ml Net 1056.25 ml Physical Exam Constitutional: Appearance: She is obese. HENT: Mouth/Throat: Mouth: Mucous membranes are dry. Eyes: Pupils: Pupils are equal, round, and reactive to light. Cardiovascular: Rate and Rhythm: Normal rate and regular rhythm. Pulmonary: Effort: Pulmonary effort is normal. Abdominal: General: Abdomen is flat. Musculoskeletal: Comments: Right foot plantar ulcer, no drainage, no erythema Neurological: Mental Status: She is alert and oriented to person, place, and time. Estimated body mass index is 55.75 kg/m??? as calculated from the following: Height as of this encounter: 1.575 m (5' 2.01 ). Weight as of this encounter: 138 kg (304 lb 14.3 oz). Assessment and Plan Assessment & Plan NSTEMI (non-ST elevated myocardial infarction) ([facility]) - cards consulted - likely demand ischemia in setting of acute kidney injury, and seizure episode and elevated lactate. Neurosearchtronic device interrogation No current indication for heparin as her troponin is trending downward and patient is asymptomatic and having epistaxis. Aspirin 81 mg daily and Toprol 50 mg. Further recommendations to follow depending on echocardiogram results. Type 2 diabetes mellitus with circulatory disorder, with long-term current use of insulin ([facility]) - HgbA1C 10.7 - in insulin pump at home - Glu 96-211 - currently lantus 12 units bid - currently ISS Sick sinus syndrome ([facility]) - s/p pacemaker - interrogation ordered- asked RN to call rep Acute renal failure with acute tubular necrosis superimposed on stage 3a chronic kidney disease ([facility]) -Cr improved today to 1.75 - renal US negative - neph consulted Seizure ([facility]) - neuro consulted at admission - Continue LEV 1g BID at least until outpt neuro follow up - Patient will need referral to [facility] neurology (for epileptologist) at discharge. - Recommend PT/OT. - Neuro will sign off. Bipolar 1 disorder ([facility]) - continue celexa 40mg daily - continue pamelor 25mg nightly - continue seroquel 400mg nightly Acquired hypothyroidism - last TSH 3.71 - cont levothyroxine 75mcg daily Class 3 severe obesity due to excess calories with serious comorbidity and body mass index (BMI) of 50.0 to 59.9 in adult - encourage weight loss - may benefit from a GLP-1 inhibitor, defer to PCP Plantar ulcer of left foot, limited to breakdown of skin ([facility]) - vascular surgery consulted No plans for debridement at th (more content not included)... [facility] 10-03-2024 Note Ca 6.6 - albumin 2.5, corrected calcium 7.4 - will give one gram of calcium [facility] 10-03-2024 Note -Cr improved today t o 1.89 - renal US negative - neph consulted [facility] 10-03-2024 Note - vascular surgery c onsulted No plans for debridement at this time. No antibiotics necessary. Upon inspection today this is not ulcer but rather a dry callus, no open tissue present. Recommend to keep callus clean and dry and follow up outpatient follow up with her recreation specialist for routine callus paring. No need for [...] up with our service at this time [facility] 10-03-2024 Note Attestation with edits by Leonardo Moyer MD at 10/03/2024 5:12 PM By using the attestations below, the signing clinician agrees that I have read and verify that the documentation has been personally reviewed by me and ensure that the documentation accurately reflects the encounter. GC: I personally saw this patient with Dr. John Correa at 1025 hours on the day of the encounter, performed the mckinnon portion(s) of the service and participated in the management and confirm the resident's documentation. Please note there may be additional personal documentation from me. Patient is in bed in no acute distress. The creatinine yesterday was 3.0. It is down to 1.89. Patient's baseline creatinine lately has been approximately 1.7. This is consistent to CKD 3B. Agree with oral hydration at this point. Leonardo Moyer MD, PhD Nephrology Progress Note Patient : Addie Jean Baptiste; 49 y.o. Location: 5160/5160-01 Attending: Maye Ortiz DO Admit Date: 10/01/2024 Hospital Day: 2 Reason for Consult: SOLO on CKD3 Subjective: Addie Jean Baptiste is an 49 y.o. 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 Patient has a known seizure disorder and is on chronic maintenance therapy with the Keppra 1 g twice daily. She states that the seizures episodes happen with frequently multiple times a week. She also reports of having episodes of intermittent substernal chest discomfort over the past week, moderate intensity 9/10, aching in nature sometimes lasting for few hours, self resolving, nonradiating, not associated other cardiac symptoms. She also reports generalized pain fibromyalgia/myofascial syndrome has been follows with pain medicine for pain control. She has a history of sick sinus syndrome status post pacemaker implantation in 2011, s/p right atrial extraction due to insulation break. She denies of having home transmitter system for the pacemaker system and had not had follow-up with the cardiology team over the past several years. Had a Lexiscan stress test in 02/18/2023 which showed a normal myocardial perfusion imaging. Last transthoracic echo done at outside hospital showed normal LV systolic function with EF 60 to 65%, no wall motion abnormalities, no significant valvular abnormalities. Her weight is a notable for blood pressure of 90/48 mmHg, pulse rate 92 bpm, temperature 97.9, SpO2 97% on room air. Basic labs notable for CBC with normal WBC, hemoglobin 12.8 g/dL, normal platelets. BMP notable for sodium 133/potassium 3.6, bicarb 26, creatinine 2.04, glucose 154 mg/dL, elevated lactate of 3.2. EKG showed sinus rhythm with nonspecific ST-T changes, right atrial enlargement. High sensitive troponin levels were noted to be elevated 180-->166 pg/mL. [facility] Cardiology was consulted from [place] [facility] and she is transferred here for further management. She has not been initiated on heparin infusion. Interval history: 10/03/24 Patient seen and examined. No acute events. Reports eating and drinking okay. Renal function improving with IVF Objective: Input/Output: Intake/Output Summary (Last 24 hours) at 10/03/2024 1348 Last data filed at 10/03/2024 1234 Gross per 24 hour Intake 2268.75 ml Output 950 ml Net 1318.75 ml I/O last 3 completed shifts: In: 1302.5 (9.2 mL/kg) [P.O.:180; I.V.:1122.5 (7.9 mL/kg)] Out: 750 (5.3 mL/kg) [Urine:750 (0.1 mL/kg/hr)] Weight: 141.6 kg Vital signs: Temperature: Temp: 36.6 ???C (97.8 ???F) TMax: Temp (24hrs), Av.7 ???C (98.1 ???F), Min:36.4 ???C (97.6 ???F), Max:37 ???C (98.6 ???F) Respirations: Resp: 11 Pulse: Heart Rate: 60 BP: BP: (!) 119/96 BP Range: Systolic (24hrs), Av , Min:90 , Max:125 Diastolic (24hrs), Av, Min:55, Max:96 Wt Readings from Last 3 Encounters: 10/03/24 (!) 138 kg (304 lb 10.8 oz) 09/29/19 99.8 kg (220 lb) Physical Exam Constitutional: Appearance: Normal appearance. HENT: Head: Normocephalic and atraumatic. Cardiovascular: Rate and Rhythm: Normal rate and regular rhythm. Pulses: Normal pulses. Heart sounds: Normal heart sounds. Pulmonary: Breath sounds: Normal breath sounds. Abdominal: General: Abdomen is flat. Palpations: Abdomen is soft. Musculoskeletal: Right lower leg: No edema. Left lower leg: No edema. N (more content not included)... [facility] 10-03-2024 Note - neuro consulted at admission - Continue LEV 1g BID at least until outpt neuro follow up - Patient will need referral to [facility] neurology (for epileptologist) at discharge. - Recommend PT/OT. - Neuro will sign off. [facility] 10-03-2024 Note - last TSH 3.71 - cont levothyroxine 75mcg daily [facility] 10-03-2024 Note - encourage weight l oss - may benefit from a GLP-1 inhibitor, defer to PCP [facility] 10-03-2024 Note - continue celexa 40 mg daily - continue pamelor 25mg nightly - continue seroquel 400mg nightly [facility] 10-03-2024 Note - HgbA1C 10.7 - in insulin pump at home - Glu 115-413 - currently lantus 12 units bid - currently ISS - will discuss insulin dosing with pharmacy today [facility] 10-03-2024 Note - s/p pacemaker - interrogation ordered [facility] 10-03-2024 Note - cards consulted - likely demand ischemia in setting of acute kidney injury, and seizure episode and elevated lactate. Medtronic device interrogation No current indication for heparin as her troponin is trending downward and patient is asymptomatic and having epistaxis. Aspirin 81 mg daily and Toprol 50 mg. Further recommendations to follow depending on echocardiogram results. Cardiology team will continue to follow [facility] 10-03-2024 Note Hospital Medicine Daily Progress Note - 10/03/2024 10:32 AM; Room: [address] [place] [address] Admission: 10/01/2024 9:19 AM; Length of stay: 2 days THE HOSPITALIST TEAM PREFERS TO USE [employer] FOR NON-URGENT COMMUNICATION 7AM-7PM. IF I DO NOT RESPOND WITHIN 20 MINUTES OR URGENT MATTERS, PLEASE CALL THROUGH THE 3RD MATE. FROM 7PM-7AM, PLEASE PAGE [phone](COVR). Code Status: Full Code Barriers to Discharge: sleepiness, trop, renal function Expected Discharge Date: 2 - 3 days Discharge Destination: home Overview Addie Jean Baptiste is an 49 y.o. 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 Patient has a known seizure disorder and is on chronic maintenance therapy with the Keppra 1 g twice daily. She states that the seizures episodes happen with frequently multiple times a week. She also reports of having episodes of intermittent substernal chest discomfort over the past week, moderate intensity 9/10, aching in nature sometimes lasting for few hours, self resolving, nonradiating, not associated other cardiac symptoms. Basic labs notable for CBC with normal WBC, hemoglobin 12.8 g/dL, normal platelets. BMP notable for sodium 133/potassium 3.6, bicarb 26, creatinine 2.04, glucose 154 mg/dL, elevated lactate of 3.2. EKG showed sinus rhythm with nonspecific ST-T changes, right atrial enlargement. High sensitive troponin levels were noted to be elevated 180-->166 pg/mL. Subjective Currently in bed Went down for US this AM Reports she has a slight headache Reports she did not sleep well last night Physical Exam Visit Vitals BP 101/64 (BP Location: Right wrist, Patient Position: Lying) Pulse 77 Temp 36.4 ???C (97.6 ???F) (Oral) Resp 13 Intake/Output Summary (Last 24 hours) at 10/03/2024 1032 Last data filed at 10/03/2024 0900 Gross per 24 hour Intake 1342.5 ml Output 950 ml Net 392.5 ml Physical Exam Constitutional: Appearance: She is obese. HENT: Mouth/Throat: Mouth: Mucous membranes are dry. Eyes: Pupils: Pupils are equal, round, and reactive to light. Cardiovascular: Rate and Rhythm: Normal rate and regular rhythm. Pulmonary: Effort: Pulmonary effort is normal. Abdominal: General: Abdomen is flat. Musculoskeletal: Comments: Right foot plantar ulcer, no drainage, no erythema Neurological: Mental Status: She is alert and oriented to person, place, and time. Estimated body mass index is 57.09 kg/m??? as calculated from the following: Height as of this encounter: 1.575 m (5' 2.01 ). Weight as of this encounter: 142 kg (312 lb 3.2 oz). Assessment and Plan Assessment & Plan NSTEMI (non-ST elevated myocardial infarction) ([facility]) - cards consulted - likely demand ischemia in setting of acute kidney injury, and seizure episode and elevated lactate. Medtronic device interrogation No current indication for heparin as her troponin is trending downward and patient is asymptomatic and having epistaxis. Aspirin 81 mg daily and Toprol 50 mg. Further recommendations to follow depending on echocardiogram results. Cardiology team will continue to follow Type 2 diabetes mellitus with circulatory disorder, with long-term current use of insulin ([facility]) - HgbA1C 10.7 - in insulin pump at home - Glu 115-413 - currently lantus 12 units bid - currently ISS - will discuss insulin dosing with pharmacy today Sick sinus syndrome ([facility]) - s/p pacemaker - interrogation ordered Acute renal failure with acute tubular necrosis superimposed on stage 3a chronic kidney disease ([facility]) -Cr improved today to 1.89 - renal US negative - neph consulted Seizure ([facility]) - neuro consulted at admission - Continue LEV 1g BID at least until outpt neuro follow up - Patient will need referral to [facility] neurology (for epileptologist) at discharge. - Recommend PT/OT. - Neuro will sign off. Bipolar 1 disorder ([facility]) - continue celexa 40mg daily - continue pamelor 25mg nightly - continue seroquel 400mg nightly Acquired hypothyroidism - last TSH 3.71 - cont levothyroxine 75mcg daily Class 3 severe obesity due to excess calories with serious comorbidity and body mass index (BMI) of 50.0 to 59.9 in adult - encourage weight loss - may benefit from a GLP-1 inhibitor, defer to PCP Plantar ulcer of left foot, limited to breakdown of skin ([facility]) - vascular surgery consulted No plans for debridement at this time. No antibiotics necessary. Upon inspection tod (more content not included)... [facility] 10-03-2024 Note Attestation signed by Kelley Liang RD at 10/03/2024 2:16 PM I attest that I was present for nutrition assessment and agree with internal audit director's nutrition interventions and goals for pt. Adult Nutrition Assessment: Name: Addie Jean Baptiste Date: 1975 Date of Visit: 10/03/24 Admission Dx: NSTEMI (non-ST elevated myocardial infarction) ([facility]) [I21.4] Reason for assessment: high risk (L DFU) Information obtained from: patient, medical record, and nursing Past Medical History: Diagnosis Date Anxiety Bipolar 1 disorder ([facility]) Cardiac arrest ([facility]) 2019 Chronic back pain Chronic kidney disease Coronary artery disease Depression Diabetes mellitus ([facility]) Hypertension Insomnia Pacemaker Schizoaffective disorder ([facility]) Seizures ([facility]) Stroke ([facility]) Current Medications: aspirin, 81 mg, oral, Daily atorvastatin, 20 mg, oral, Nightly brexpiprazole, 1 mg, oral, Daily cefTRIAXone, 2 g, intravenous, q24h citalopram, 40 mg, oral, Daily enoxaparin, 40 mg, subcutaneous, Daily insulin glargine, 12 Units, subcutaneous, BID insulin lispro, 0-10 Units, subcutaneous, TID with meals And insulin lispro, 0-8 Units, subcutaneous, Nightly insulin lispro, 4 Units, subcutaneous, TID with meals levETIRAcetam, 1,000 mg, oral, BID levothyroxine, 75 mcg, oral, Daily before breakfast metoprolol succinate XL, 50 mg, oral, Daily nortriptyline, 25 mg, oral, Nightly paliperidone, 9 mg, oral, q AM pantoprazole, 40 mg, oral, Daily before breakfast pregabalin, 75 mg, oral, BID QUEtiapine, 400 mg, oral, Nightly sennosides-docusate sodium, 1 tablet, oral, Nightly tiZANidine, 4 mg, oral, TID Labs: 0 Lab Value Date/Time POCGLU 171 (H) 10/03/2024 1133 BUN 32 (H) 10/03/2024 1044 CREATININE 1.89 (H) 10/03/2024 1044 NA 138 10/03/2024 1044 K 3.7 10/03/2024 1044 MG 2.2 10/02/2024 0442 HGBA1C 10.7 (H) 10/01/2024 1102 HGB 8.7 (L) 10/03/2024 1044 WBC 7.35 10/03/2024 1044 CHOL 219 (H) 10/01/2024 1102 HDL 49 10/01/2024 1102 POC: 105-413 Troponin 10/01: 72 Allergies: Allergies Allergen Reactions Codeine Other, Hives, Rash and GI intolerance Get very angry Other reaction(s): Aggressive Behavior hives Fentanyl GI intolerance, Hallucinations, Nausea And Vomiting and Other Other Reaction(s): Renal Failure Linezolid GI intolerance, Nausea And Vomiting and Other Other Reaction(s): Renal Failure Lorazepam Hallucinations and Other Other Reaction(s): Other (See Comments), Renal Failure Morphine GI intolerance, Other and Rash Other Reaction(s): Aggressive Behavior hives Get very angry Other reaction(s): Aggressive Behavior Tramadol GI intolerance, Other, Hives, Rash and Unknown Other Reaction(s): Other (See Comments) seizures seizures Vancomycin Other and Hives Other Reaction(s): Contraindication-Medical Surgical, KIDNEY & URINARY TRACT DISORDERS EXCEPT RENAL FAILURE W MAJOR CC, Other (See Comments) Shut down her kidneys Shuts my kidneys down Shuts kidney down Shuts my kidneys down Shut down her kidneys Shuts kidney down Propoxyphene N-Acetaminophen GI intolerance and Other Acetaminophen Other Adhesive Tape-Silicones Itching Nsaids (Non-Steroidal Anti-Inflammatory Drug) Unknown shuts my kidney's down Prochlorperazine Other Other Reaction(s): Other (See Comments) She reports Compazine made her feel anxious and grumpy She reports Compazine made her feel anxious and grumpy Propoxyphene GI intolerance and Nausea And Vomiting Nutrition Problems: Swallowing Assessment: pt denies difficulty swallowing Mouth: Upper/Lower dentures, pt denies difficulty chewing Abdominal Assessment: last BM: 09/28/24 Pt denies N/V/D Pt endorses constipation, bowel regimen in place I/O: Net fluid: +1.1 L Urine output: 750 ml (10/02/24) Appetite: poor per pt; good per pt RN Cognition: A/O x4 Feeding Skills: pt is able to feed herself, good access to food States that her family shops/cooks for her Skin Integrity: L DFU Edema: non-pitting generalized Nutrition Data/Clinical Indicators of Nutrition Status: Height: 157.5 cm (5' 2.01 ) Weight: (!) 138 kg (304 lb 10.8 oz) BMI (Calculated): 55.71 Wt Readings from Last 10 Encounters: 10/03/24 138.2 kg bed scale 10/02/24 135.5 kg bed scale 07/05/24 106 kg office visit 05/23/24 127 kg ED 04/26/24 128.3 kg admission 03/24/24 123.6 kg admission 11/09/23 115.7 kg ED 10/15/23 115.7 kg ED 09/29/19 99.8 kg (220 lb) IBW: 50 kg Nutrition Assessment: Pt reports that her appetite is not good for the past several days. She states she has not eaten since admission; per RN she ate all of her breakfast this morning (yakut muffin, wick, juice/coffee). Pt states she has had diabetes (more content not included)... [facility] 10-03-2024 Note [facility] Vascular Surgery DAILY PROGRESS NOTE Subjective Patient was seen and evaluated at the bedside, they report no acute events overnight. She has no pain to her LLE. She's been minimally ambulatory, tolerating regular diet. Does report she sees podiatry routinely outpatient. Denies claudication symptoms at baseline. Arterial studies this am were done without evidence of significant occlusive disease No questions or concerns at this time. Objective Vitals: Vitals: 10/03/24 0400 BP: 90/67 Pulse: 63 Resp: 14 Temp: 36.9 ???C (98.4 ???F) SpO2: 93% I/O last 3 completed shifts: In: 1302.5 (9.2 mL/kg) [P.O.:180; I.V.:1122.5 (7.9 mL/kg)] Out: 750 (5.3 mL/kg) [Urine:750 (0.1 mL/kg/hr)] Weight: 141.6 kg No intake/output data recorded. Physical Exam Constitutional: General: She is not in acute distress. Appearance: Normal appearance. She is normal weight. She is not ill-appearing. Cardiovascular: Rate and Rhythm: Normal rate and regular rhythm. Pulmonary: Effort: Pulmonary effort is normal. No respiratory distress. Abdominal: General: Abdomen is flat. There is no distension. Palpations: Abdomen is soft. There is no mass. Tenderness: There is no abdominal tenderness. There is no guarding or rebound. Hernia: No hernia is present. Musculoskeletal: Comments: Dry callus to plantar surface of left foot, adherent without concern for underlying ulceration Skin: General: Skin is warm and dry. Neurological: General: No focal deficit present. Mental Status: She is alert and oriented to person, place, and time. Psychiatric: Mood and Affect: Mood normal. Behavior: Behavior normal. Labs: Results from last 7 days Lab Units 10/01/24 1102 WBC AUTO 10*3/uL 8.09 HEMOGLOBIN g/dL 11.7* HEMATOCRIT % 34.8* PLATELETS AUTO 10*3/uL 325 Results from last 7 days Lab Units 10/02/24 0442 10/01/24 1102 SODIUM mmol/L 134* 131* POTASSIUM mmol/L 4.2 4.1 CO2 mmol/L 20* 22 BUN mg/dL 29* 26* CREATININE mg/dL 3.00* 1.99* Medications: aspirin, 81 mg, oral, Daily atorvastatin, 20 mg, oral, Nightly brexpiprazole, 1 mg, oral, Daily cefTRIAXone, 2 g, intravenous, q24h citalopram, 40 mg, oral, Daily enoxaparin, 40 mg, subcutaneous, Daily insulin glargine, 12 Units, subcutaneous, BID insulin lispro, 0-10 Units, subcutaneous, TID with meals And insulin lispro, 0-8 Units, subcutaneous, Nightly levETIRAcetam, 1,000 mg, oral, BID levothyroxine, 75 mcg, oral, Daily before breakfast metoprolol succinate XL, 50 mg, oral, Daily nortriptyline, 25 mg, oral, Nightly paliperidone, 9 mg, oral, q AM pantoprazole, 40 mg, oral, Daily before breakfast pregabalin, 75 mg, oral, BID QUEtiapine, 400 mg, oral, Nightly sennosides-docusate sodium, 1 tablet, oral, Nightly tiZANidine, 4 mg, oral, TID sodium bicarbonate 75 mEq in sodium chloride 0.45 % 1,000 mL infusion, 75 mL/hr, Last Rate: 75 mL/hr (10/03/24 0108) Imaging: Limited Echo (TTE) w/wo Limited Doppler, Color Flow, Imaging Agent, Strain, 3D, Bubble Study [address] [facility] Heart [facility] [address] [place] [address] [phone] (fax) Echocardiogram-[facility] Name: ADDIE ORGAN Study Date: 10/01/2024 03:03 PM B/P: 127 mmHg/111 mmHg HR: Date of : 1975 Location: [facility] Height: 62 in. Age: 49 [...] Pressure 3 mmHg RVSP 12 mmHg TR V (more content not included)... [facility] 10-02-2024 Note - last TSH 3.71 - cont levothyroxine 75mcg daily [facility] 10-02-2024 Note - encourage weight l oss - may benefit from a GLP-1 inhibitor, defer to PCP [facility] 10-02-2024 Note - Cr 3.0 today - neph consulted [facility] 10-02-2024 Note - HgbA1C 10.7 - in insulin pump at home - Glu 134-249 - currently lantus 12 units bid - currently ISS [facility] 10-02-2024 Note - cards consulted - likely demand ischemia [...] results. Cardiology team will continue to follow [facility] 10-02-2024 Note - s/p pacemaker - interrogation ordered [facility] 10-02-2024 Note - continue celexa 40 mg daily - continue pamelor 25mg nightly - continue seroquel 400mg nightly [facility] 10-02-2024 Note - vascular surgery c onsulted No plans for debridement at this time No antibiotics necessary Wash wound daily with soap and water, keep dry Will obtain arterial studies to evaluate for peripheral vascular disease [facility] 10-02-2024 Note - neuro consulted at admission - Continue LEV 1g BID at least until outpt neuro follow up - Patient will need referral to [facility] neurology (for epileptologist) at discharge. - Recommend PT/OT. - Neuro will sign off. [facility] 10-02-2024 Note Hospital Medicine Daily Progress Note - 10/02/2024 10:59 AM; Room: [address] [place] [address] Admission: 10/01/2024 9:19 AM; Length of stay: 1 days THE HOSPITALIST TEAM PREFERS TO USE [employer] FOR NON-URGENT COMMUNICATION 7AM-7PM. IF I DO NOT RESPOND WITHIN 20 MINUTES OR URGENT MATTERS, PLEASE CALL THROUGH THE 3RD MATE. FROM 7PM-7AM, PLEASE PAGE [phone](COVR). Code Status: Full Code Barriers to Discharge: sleepiness, trop, renal function Expected Discharge Date: 2 - 3 days Discharge Destination: home Overview Addie Jean Baptiste is an 49 y.o. 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 Patient has a known seizure disorder and is on chronic maintenance therapy with the Keppra 1 g twice daily. She states that the seizures episodes happen with frequently multiple times a week. She also reports of having episodes of intermittent substernal chest discomfort over the past week, moderate intensity 9/10, aching in nature sometimes lasting for few hours, self resolving, nonradiating, not associated other cardiac symptoms. Basic labs notable for CBC with normal WBC, hemoglobin 12.8 g/dL, normal platelets. BMP notable for sodium 133/potassium 3.6, bicarb 26, creatinine 2.04, glucose 154 mg/dL, elevated lactate of 3.2. EKG showed sinus rhythm with nonspecific ST-T changes, right atrial enlargement. High sensitive troponin levels were noted to be elevated 180-->166 pg/mL. Subjective RN at bedside getting her up to chair. This AM was very sleepy for RN. Able to tell me where she is what year it is and why she is here Physical Exam Visit Vitals BP 98/63 Pulse 60 Temp 37.1 ???C (98.7 ???F) (Oral) Resp 15 Intake/Output Summary (Last 24 hours) at 10/02/2024 1059 Last data filed at 10/02/2024 0011 Gross per 24 hour Intake 750 ml Output -- Net 750 ml Physical Exam Constitutional: Appearance: She is obese. HENT: Mouth/Throat: Mouth: Mucous membranes are dry. Eyes: Pupils: Pupils are equal, round, and reactive to light. Cardiovascular: Rate and Rhythm: Normal rate and regular rhythm. Pulmonary: Effort: Pulmonary effort is normal. Abdominal: General: Abdomen is flat. Musculoskeletal: Comments: Right foot plantar ulcer, no drainage, no erythema Neurological: Mental Status: She is alert and oriented to person, place, and time. Estimated body mass index is 54.62 kg/m??? as calculated from the following: Height as of this encounter: 1.575 m (5' 2.01 ). Weight as of this encounter: 135 kg (298 lb 11.2 oz). Assessment and Plan Assessment & Plan NSTEMI (non-ST elevated myocardial infarction) ([facility]) - cards consulted - likely demand ischemia [...] results. Cardiology team will continue to follow Type 2 diabetes mellitus with circulatory disorder, with long-term current use of insulin ([facility]) - HgbA1C 10.7 - in insulin pump at home - Glu 134-249 - currently lantus 12 units bid - currently ISS Sick sinus syndrome ([facility]) - s/p pacemaker - interrogation ordered Acute renal failure with acute tubular necrosis superimposed on stage 3a chronic kidney disease ([facility]) - Cr 3.0 today - neph consulted Seizure ([facility]) - neuro consulted at admission - Continue LEV 1g BID at least until outpt neuro follow up - Patient will need referral to [facility] neurology (for epileptologist) at discharge. - Recommend PT/OT. - Neuro will sign off. Bipolar 1 disorder ([facility]) - continue celexa 40mg daily - continue pamelor 25mg nightly - continue seroquel 400mg nightly Acquired hypothyroidism - last TSH 3.71 - cont levothyroxine 75mcg daily Class 3 severe obesity due to excess calories with serious comorbidity and body mass index (BMI) of 50.0 to 59.9 in adult - encourage weight loss - may benefit from a GLP-1 inhibitor, defer to PCP Plantar ulcer of left foot, limited to breakdown of skin ([facility]) - vascular surgery consulted No plans for debridement at this time No antibiotics necessary Wash wound daily with soap and water, keep dry Will obtain arterial studies to evalua (more content not included)... [facility] 10-02-2024 Note Attestation with edits by Juan C Crabtree MD at 10/02/2024 4:35 PM I personally saw and examined the patient on the same date of service as resident/fellow Dr Ho. I discussed the findings and therapeutic plan with the resident/fellow Dr Ho. I agree with the documentation, except for any edits/updates below. Teaching Physician's Revisions: None Juan C Crabtree MD, [facility] Cardiology Progress Note Subjective Subjective: Patient was seen and examined, reported doing ok, she still complaining of generalized pain over her body, no other complaints. Remained afebrile and hemodynamically stable.Nurse reports she was placed on O2 during the night due to drop in O2 sat while sleeping Objective Current Facility-Administered Medications: aspirin chewable tablet 81 mg, 81 mg, oral, Daily, Malika Catnu MD, 81 mg at 10/01/24 1220 atorvastatin (Lipitor) tablet 20 mg, 20 mg, oral, Nightly, Malika Cantu MD, 20 mg at 10/01/245 brexpiprazole (Rexulti) tablet 1 mg, 1 mg, oral, Daily, Malika Cantu MD, 1 mg at 10/01/24 1225 cefTRIAXone (Rocephin) IVPB 2 g in NS 50 mL (Mini-Bag Plus), 2 g, intravenous, q24h, Malika Cantu MD, Stopped at 10/01/24 1250 citalopram (CeleXA) tablet 40 mg, 40 mg, oral, Daily, Malika Cantu MD, 40 mg at 10/01/24 1220 glucose chewable tablet 24 g, 24 g, oral, q15 min PRN OR dextrose 50 % in water (D50W) syringe 25 g, 25 g, intravenous, q15 min PRN, Malika Cantu MD enoxaparin (Lovenox) syringe 40 mg, 40 mg, subcutaneous, Daily, Malika Cantu MD, 40 mg at 10/01/24 1219 insulin glargine (Lantus) injection vial 12 Units, 12 Units, subcutaneous, BID, Malika Cantu MD, 12 Units at 10/01/24 2126 insulin lispro (HumaLOG) injection 0-10 Units, 0-10 Units, subcutaneous, TID with meals, 6 Units at 10/01/24 1610 AND insulin lispro (HumaLOG) injection 0-8 Units, 0-8 Units, subcutaneous, Nightly, Malika Cantu MD levETIRAcetam (Keppra) tablet 1,000 mg, 1,000 mg, oral, BID, Malika Cantu MD, 1,000 mg at 10/01/242124 levothyroxine (Synthroid, Levoxyl) tablet 75 mcg, 75 mcg, oral, Daily before breakfast, Malika Cantu MD melatonin tablet 5 mg, 5 mg, oral, Nightly PRN, Malika Cantu MD metoprolol succinate XL (Toprol-XL) 24 hr tablet 50 mg, 50 mg, oral, Daily, Malika Cantu MD, 50 mg at 10/01/24 1220 nortriptyline (Pamelor) capsule 25 mg, 25 mg, oral, Nightly, Malika Cantu MD, 25 mg at 10/01/24 2125 ondansetron ODT (Zofran-ODT) disintegrating tablet 4 mg, 4 mg, oral, q8h PRN OR ondansetron HCl (PF) (Zofran) injection 4 mg, 4 mg, intravenous, q6h PRN, Malika Cantu MD, 4 mg at 10/01/24 1040 oxyCODONE-acetaminophen (Percocet) 5-325 mg per tablet 1 tablet, 1 tablet, oral, q8h PRN, Malika Cantu MD, 1 tablet at 10/01/24 1359 paliperidone (Invega) 24 hr tablet 9 mg, 9 mg, oral, q AM, Malika Cantu MD, 9 mg at 10/01/24 1307 pantoprazole (ProtoNix) EC tablet 40 mg, 40 mg, oral, Daily before breakfast, Malika Cantu MD pregabalin (Lyrica) capsule 75 mg, 75 mg, oral, BID, Malika Cantu MD, 75 mg at 10/01/242124 QUEtiapine (SEROquel) tablet 400 mg, 400 mg, oral, Nightly, Malika Cantu MD, 400 mg at 10/01/242124 sennosides-docusate sodium (Gema-Colace) 8.6-50 mg per tablet 1 tablet, 1 tablet, oral, Nightly, Malika Cantu MD, 1 tablet at 10/01/242124 sodium chloride 0.9 % infusion, 75 mL/hr, intravenous, Continuous, Malika Cantu MD, Last Rate: 75 mL/hr at 10/02/24 0252, 75 mL/hr at 10/02/24 025 Insert peripheral IV, , , Once AND Saline lock IV, , , Once AND sodium chloride flush 10 mL, 10 mL, intravenous, q8h PRN, Malika Cantu MD tiZANidine (Zanaflex) tablet 4 mg, 4 mg, oral, TID, Malika Cantu MD, 4 mg at 10/01/24 220 Objective: Patient Vitals for the past 24 hrs: BP Temp Temp src Pulse Resp SpO2 Height Weight 10/02/24 0800 98/63 37.1 ???C (98.7 ???F) Oral 60 15 100 % -- -- 10/02/24 0413 93/60 -- -- 60 20 99 % -- 135 kg (298 lb 11.2 oz) 10/02/24 0406 85/57 36.1 ???C (96.9 ???F) Axillary 61 18 99 % -- -- 10/02/24 0404 88/52 -- -- 62 17 98 % -- -- 10/02/24 0008 110/75 36.6 ???C (97.9 ???F) Axillary 88 22 96 % -- -- 10/01/242030 (!) 103/91 36.4 ???C (97.5 ???F) Oral 61 15 93 % -- -- 10/01/24 0931 -- -- -- -- -- -- 1.575 m (5' 2.01 ) 135 kg (297 lb 8 oz) Physical Examination: Physical Exam Constitutional: General: She is not in acute distress. Appearanc (more content not included)... [facility] 10-01-2024 Note [facility] General Neurology Consultation Initial Note DATE OF ADMISSION 10/01/2024 9:19 AM REASON FOR ADMISSION: Trop elevation REFERRING PHYSICIAN: Pepe PCP: No primary care provider on file. HISTORY OF PRESENT ILLNESS: Addie Jean Baptiste is a 49 y.o. old female who was seen on 10/01/2024 for a new inpatient neurology consult for a chief complaint of seizure, consult for [facility] management. Addie Jean Baptiste is an 49 y.o. female with a PMH of left diabetic toe osteomyelitis s/p amputation 04/01, chronic kidney disease stage III, T2DM on insulin pump, Diabetic peripheral neuropathy, Hypertension, Hyperlipidemia, Sick sinus syndrome s/p PPM implantation in 2011/ In 2017 underwent MRI compatible PPM placement at [facility], Bipolar disorder, known HUSEYIN captured in [facility] 2008 EEG study with possible comorbid epilepsy (no record of abnormal EEGs or verification of any electrical seizures) who presented to [facility] after having a generalized tonic-clonic seizure and episodes of vomiting yesterday. She is currently admitted for chest pain with nonspecific ST changes, SOLO, and seizure. She states that the seizures episodes happen with frequently multiple times a week. She has no recollection of the events. She does not know how long they last. She never bites her tongue or urinates (though interestingly she sometimes gets incontinence while awake due to having a weak bladder. ) She can feel sore and/or sluggish for up to a few hours afterwards. She feels that she can tell when she had a seizure in her sleep because she wakes up with stuttering. She took herself off LEV about 6 months ago. She cannot tell me why. She denies SE. She reports that she previously had had good seizure control on LEV. She would like to restart this. Basic labs in the ED notable for CBC with normal WBC, hemoglobin 12.8 g/dL, normal platelets. BMP notable for sodium 133/potassium 3.6, bicarb 26, creatinine 2.04, glucose 154 mg/dL, elevated lactate of 3.2 (improved with fluids). EKG showed sinus rhythm with nonspecific ST-T changes, right atrial enlargement. High sensitive troponin levels were noted to be elevated 180-->166 pg/mL. [facility] Cardiology was consulted from [facility] and she is transferred here for further management. A summary from her [facility] neurologist on 08/2023 noted: 2008 - VIDEO EEG - 3 nonepileptic event - [facility] 2016 - EEG - low voltage, otherwise normal 12/2022 - ER - 3 seizures 08/2023 - ER - [facility] - few seizures, may have missed medications, left AMA She is on keppra 1000mg BID from previous neurologists. She also had an admission [facility] in 04/2023 for left sided weakness, but no stroke on MRI. Neurology consulted and suspected functional versus migraine. This resolved on its own. She reports to me that she had had years of BLE which is stable. MEDICATIONS: Scheduled Meds:aspirin, 81 mg, oral, Daily atorvastatin, 20 mg, oral, Nightly brexpiprazole, 1 mg, oral, Daily cefTRIAXone, 2 g, intravenous, q24h citalopram, 40 mg, oral, Daily enoxaparin, 40 mg, subcutaneous, Daily insulin lispro, 0-10 Units, subcutaneous, TID with meals And insulin lispro, 0-8 Units, subcutaneous, Nightly levETIRAcetam, 1,000 mg, oral, BID [START ON 10/02/2024] levothyroxine, 75 mcg, oral, Daily before breakfast metoprolol succinate XL, 50 mg, oral, Daily nortriptyline, 25 mg, oral, Nightly paliperidone, 9 mg, oral, q AM [START ON 10/02/2024] pantoprazole, 40 mg, oral, Daily before breakfast pregabalin, 75 mg, oral, BID QUEtiapine, 400 mg, oral, Nightly sennosides-docusate sodium, 1 tablet, oral, Nightly tiZANidine, 4 mg, oral, TID Continuous Infusions:sodium chloride, 75 mL/hr PRN Meds:.PRN medications: glucose OR dextrose 50 % in water (D50W), melatonin, ondansetron ODT OR ondansetron, oxyCODONE-acetaminophen, Insert peripheral IV AND Saline lock IV AND sodium chloride PAST MEDICAL HISTORY: Past Medical History: Diagnosis Date Anxiety Bipolar 1 disorder ([facility]) Cardiac arrest ([facility]) 2019 Chronic back pain Chronic kidney disease Coronary artery disease Depression Diabetes mellitus ([facility]) Hypertension Insomnia Pacemaker Schizoaffective disorder ([facility]) Seizures ([facility]) Stroke ([facility]) PAST SURGICAL HISTORY: Past Surgical History: Procedure Laterality Date CARDIAC PACEMAKER PLACEMENT CHOLECYSTECTOMY HYSTERECTOMY TOE AMPUTATION ALLERGIES: Allergies Allergen Reactions Codeine Other, Hives, Rash and GI intolerance Get very angry Other reaction(s): Aggressive Behavior hives Fentanyl GI intolerance, Hallucinations, Nausea And Vomiting and Other Other Reaction(s): Renal Failure Linezolid GI intolerance, Nausea And Vomiting and Other Other Reaction(s): Renal Failure Lorazepam Hallucinations and Other Other Reaction(s): Other (See Comments), Renal Failure Morphine GI intolerance, Other and Rash O (more content not included)... [facility] 10-01-2024 Note Hospital Medicine History and Physical 10/01/2024 9:31 AM THE HOSPITALIST TEAM PREFERS TO USE [employer] FOR NON-URGENT COMMUNICATION 7AM-7PM. IF I DO NOT RESPOND WITHIN 20 MINUTES OR URGENT MATTERS, PLEASE CALL THROUGH THE 3RD MATE. FROM 7PM-7AM, PLEASE PAGE [phone](COVR). Chief Complaint Intermittent anginal episodes, elevated troponin History of Present Illness Addie Jean Baptiste is an 49 y.o. 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 Patient has a known seizure disorder and is on chronic maintenance therapy with the Keppra 1 g twice daily. She states that the seizures episodes happen with frequently multiple times a week. She also reports of having episodes of intermittent substernal chest discomfort over the past week, moderate intensity 9/10, aching in nature sometimes lasting for few hours, self resolving, nonradiating, not associated other cardiac symptoms. She also reports generalized pain fibromyalgia/myofascial syndrome has been follows with pain medicine for pain control. She has a history of sick sinus syndrome status post pacemaker implantation in 2011, s/p right atrial extraction due to insulation break. She denies of having home transmitter system for the pacemaker system and had not had follow-up with the cardiology team over the past several years. Had a Lexiscan stress test in 02/18/2023 which showed a normal myocardial perfusion imaging. Last transthoracic echo done at outside hospital showed normal LV systolic function with EF 60 to 65%, no wall motion abnormalities, no significant valvular abnormalities. Her weight is a notable for blood pressure of 90/48 mmHg, pulse rate 92 bpm, temperature 97.9, SpO2 97% on room air. Basic labs notable for CBC with normal WBC, hemoglobin 12.8 g/dL, normal platelets. BMP notable for sodium 133/potassium 3.6, bicarb 26, creatinine 2.04, glucose 154 mg/dL, elevated lactate of 3.2. EKG showed sinus rhythm with nonspecific ST-T changes, right atrial enlargement. High sensitive troponin levels were noted to be elevated 180-->166 pg/mL. [facility] Cardiology was consulted from [place] [facility] and she is transferred here for further management. She has not been initiated on heparin infusion. Review of System and Physical Exam BP (!) 127/111 (BP Location: Left wrist, Patient Position: Lying) Pulse 97 Temp 36.3 ???C (97.4 ???F) (Oral) Resp 10 Ht 1.575 m (5' 2.01 ) Wt 135 kg (297 lb 8 oz) SpO2 98% BMI 54.40 kg/m??? Physical Exam: Constitutional: General: She is a morbidly obese female sitting up in the bed. Appearance: not ill-appearing. Eyes: bilateral pupils equally reacting to light and accommodation, extraocular movements intact, bilateral conjunctiva clear, no pallor, HENT: Head: Normocephalic and atraumatic. Right Ear: External ear normal. Left Ear: External ear normal. Nose: Nose normal. Mouth: Mucous membranes are moist. Neck: No tenderness on C spine, thyroid normal, trachea midline, no carotid bruit Cardiovascular: Rate and Rhythm: Normal rate and regular rhythm. Pacemaker site over the left chest appears clean and dry, scar intact Pulses: Normal pulses. JVD not visible, Heart sounds: S1S2 heard, Normal heart sounds. Peripheral pulses: 2+ bilateral radial, 2+ dorsalis pedis/posterior tibial, carotid pulse volume good bilaterally Pulmonary: Effort: Pulmonary effort is normal. No respiratory distress. Breath sounds: Normal breath sounds. Abdomen: Soft, no tenderness, bowel sounds active, no hepatosplenomegaly, no masses palpable, Musculoskeletal: General: Normal range of motion. Left foot: Dried ulcer with induration noted over the head of the left first metatarsal with slight fluctuance suspicious for abscess Lymphadenopathy: Cervical: No cervical adenopathy. Neurological: Mental Status: alert. Clinically no focal deficits, no change in sensation Psychiatric: Mood and Affect: Mood normal. Behavior: Behavior normal. Thought Content: Thought content normal. Review of Systems: Constitutional: Positive for generalized weakness no fever, no night sweats, no significant weight changes, no chills, fatigue Eyes: Positive for left eye blindness due to retinal hemorrhage, has macular edema No change in vision, photophobia, no recent eye infection ENMT- Ears: no difficulty hearing, no ear pain, no tinnitus Nose: no frequent nosebleeds, no nose/sinus problems, no sinus problems, no radha (more content not included)... [facility] 09-29-2024 History of Present illness Narrative Faxed rx e-stim 09/28/24 documented in this encounter [facility] 09-27-2024 Note error AUTHENTICATED BY JIM VELEZ ON 09/27/2024 21:37:15 [facility] 09-26-2024 Note Erroneous encounter, patient not seen for office visit on this date. See documentation regarding seizure episodes in office lobby and transportation to ED. AUTHENTICATED BY STEPHANY PELAYO, ON 09/26/2024 08:41:02 [facility] 09-23-2024 Instructions Jim Velez DO [...] screen Please call Refill Line or send [facility] Refill Request to Pain Management office 7 days before each fill date, every month. Order physical therapy. Will complete MRI lumbar spine without contrast after physical therapy is completed Reorder TENS unit documented in this encounter [facility] 09-23-2024 History of Present illness Narrative General Pain Index Questionnaire- [facility] Date: 09/23/24 Patient Name: ___Cathy Organ We would like to know how [...] Totally unable to function Score ____50 (60) [facility] Interventional Pain Management Office Note Patient Name: Addie Organ Referring Physician: Stephany ePlayo PA-C Date of : 1975 PCP: Stephany [...] referral, TENS unit, and follow-up with new recreation specialist. -Addie has scheduled an appointment with a new recreation specialist, Dr. Sun, on the , as she [...] a hand injury from a fall early Jean Marie morning. -She is incontinent of both stool [...] ORTHOPEDIC SURGERY left foot surgery PACEMAKER INSERTION NV AMPUTATION TOE METATARSOPHALANGEAL JOINT Left 04/01/2024 Procedure: AMPUTATION LEFT HALLUX; Surgeon: Shameka Castillo DPM; Location: [facility] Main OR; Service: Podiatry Social History Social [...] total) by mouth daily . Dexcom G6 Hide Buyer Misc Use as directed for continuous glucose [...] OPIOIDS Jim Velez DO Interventional Pain Management [facility] documented in this encounter [facility] 09-23-2024 Note [facility] Interventional Pain Management Office Note Patient Name: Addie JeanB aptiste Referring Physician: Stephany Pelayo PA-C Date of [...] referral, TENS unit, and follow-up with new recreation specialist. -Addie has scheduled an appointment with a new recreation specialist, Dr. Sun, on the , as she [...] Diagnosis Date Anx (more content not included)... [facility] 09-22-2024 Note Addie Jean Baptiste is a 49- year-old female patient of Stephany Pelayo PA-C who is presenting for follow-up visit. She does present in a wheelchair. I was walking a patient of mine out to the lobby when her machine records units supervisor flagged me down saying that she was losing consciousness in the lobby. When I approached patient she had her eyes open but was unresponsive. At that time I did call for assistance. Within about a minute patient did start talking to me and said that she has not been feeling good and has been dizzy and shaking. The machine records units supervisor with her said that he is not seeing her unresponsive like she was until just now. Staff members were able to start taking blood pressure at 2:18 PM with blood pressure at 139/85, heart rate 89 and oxygen was reading approximately 76% but patient has dark nail moroccan on. EMS was initiated at this time. [...] when EMS arrived. [facility]. During each episode, [...] AUTHENTICATED BY KARON BEARD, ON 09/22/2024 16:04:57 [facility] 09-22-2024 History of Present illness Narrative Addie Jean Baptiste is a 49-year-old female patient of Stephany Pelayo PA-C who is presenting for follow-up visit. She does present in a wheelchair. I was walking a patient of mine out to the lobby when her machine records units supervisor flagged me down saying that she was losing consciousness in the lobby. When I approached patient she had her eyes open but was unresponsive. At that time I did call for assistance. Within about a minute patient did start talking to me and said that she has not been feeling good and has been dizzy and shaking. The machine records units supervisor with her said that he is not seeing her unresponsive like she was until just now. Staff members were able to start taking blood pressure at 2:18 PM with blood pressure at 139/85, heart rate 89 and oxygen was reading approximately 76% but patient has dark nail moroccan on. EMS was initiated at this time. [...] when EMS arrived. [facility] and [facility]. During each episode, [...] EMS took over. documented in this encounter [facility] 09-22-2024 Telephone encounter Note Pt had appt today but was sent to ED by pcp due to seizure in her office. She is out of Percocet. She didn't call for refill due to appt today. Appt rescheduled for tomorrow morning. [facility] 09-22-2024 Miscellaneous Notes Pt had appt today but was sent to ED by pcp due to seizure in her office. She is out of Percocet. She didn't call for refill due to appt today. Appt rescheduled for tomorrow morning. documented in this encounter [facility] 08-24-2024 History of Present illness Narrative Called pt to reschedule frida , unable to lvm documented in this encounter [facility] 08-04-2024 History of Present illness Narrative Pulse ox order faxed to [facility]. documented in this encounter [facility] 08-02-2024 Instructions Rafaela Castillo MA - 08/02/2024 3:12 PM EDT Call Neurology for your refills at [phone] Call [facility] to check on referrals at [phone] documented in this encounter [facility] 08-02-2024 Note [facility] [place] [address] Subjective Patient ID: Addie Jean Baptiste is [...] She has been receiving telehealth consultations from [facility], which she reports as beneficial. [...] scan, and is interested in seeing a post closing specialist. She reports difficulty in ambulating due to foot pain, which is exacerbated by the formation of new blisters with each attempt to walk. She has an upcoming appointment with her recreation specialist on 08/12/2024 for multiple diabetic foot wounds and likely planning for surgery. She has not been performing any wound care at home. She reports the presence of blisters under both breasts, which are non-pruritic but cause a burning sensation. She is concerned about the potential development of ulcers.She has been using a wheelchair for mobility and continues to see a hand painter. She has an upcoming appointment with an biochemical development engineer at [facility]. Not routinely checking BG. She [...] ORTHOPEDIC SURGERY left foot surgery PACEMAKER INSERTION NV AMPUTATION TOE METATARSOPHALANGEAL JOINT Left 04/01/2024 Procedure: AMPUTATION LEFT HALLUX; Surgeon: Shameka Castillo DPM; Location: [facility] Main OR; Service: Podiatry Family History Problem [...] (two) times a day . Dexcom G6 Hide Buyer Misc Use as directed for continuous glucose [...] directed . ame (more content not included)... [facility] 08-02-2024 History of Present illness Narrative [facility] INTERNAL MEDICINE [address] [place] [address] Subjective Patient ID: Addie Jean Baptiste is [...] She has been receiving telehealth consultations from [facility], which she reports as beneficial. [...] scan, and is interested in seeing a post closing specialist. She reports difficulty in ambulating due to foot pain, which is exacerbated by the formation of new blisters with each attempt to walk. She has an upcoming appointment with her recreation specialist on 08/12/2024 for multiple diabetic foot wounds and likely planning for surgery. She has not been performing any wound care at home. She reports the presence of blisters under both breasts, which are non-pruritic but cause a burning sensation. She is concerned about the potential development of ulcers.She has been using a wheelchair for mobility and continues to see a hand painter. She has an upcoming appointment with an biochemical development engineer at [facility]. Not routinely checking BG. She [...] ORTHOPEDIC SURGERY left foot surgery PACEMAKER INSERTION NV AMPUTATION TOE METATARSOPHALANGEAL JOINT Left 04/01/2024 Procedure: AMPUTATION LEFT HALLUX; Surgeon: Shameka Castillo DPM; Location: [facility] Main OR; Service: Podiatry Family History Problem [...] (two) times a day . Dexcom G6 Hide Buyer Misc Use as directed for continuous glucose [...] With worsening anxiety/panic attacks. Continue follow-up with [facility]. Continue current medications as prescribed. Discharged from [facility] due to no-shows. 2. Chronic Pain of [...] supposed to be establishing with an external custom wood stair builder for evaluation. 18. Candidiasis Continue nystatin powder PRN 19. Insomnia Continue trazodone 100mg qhs PRN 20. B12 Deficiency Continue supplementation. 21. Vitamin D Deficiency Continue supplementation. 22. Health Maintenance. A mammogram will be ordered. Blood work will be ordered to monitor her overall health, including A1c levels. Diagnoses and all orders for this visit: Bipolar 1 disorder (HCC) - citalopram (CELEXA) 40 MG tablet; Take 1 (one) tablet (40 mg total) by mouth daily . Chronic pain of both knees - Ambulatory Ref to [facility] (PT/OT/ST); Future Degeneration of intervertebral disc of lumbar region with discogenic back pain - Ambulatory referral to Spine Surgery; Future Chronic pain syndrome Diabetic ulcer of left great toe ([facility]) Type 2 diabetes mellitus with diabetic polyneuropathy, with long-term current use of insulin ([facility]) - Hemoglobin A1c; Future - Hemoglobin A1c [...] Chronic obstructive pulmonary disease, unspecified COPD type ([facility]) - albuterol (PROVENTIL) 2.5 mg /3 mL [...] Stephany Pelayo PA-C documented in this encounter [facility] 07-21-2024 History of Present illness Narrative Shower chair order, ins card and OV note faxed to [employer]. documented in this encounter [facility] 07-15-2024 Note [facility] [address] [place] [address] Subjective Patient ID: Addie Jean Baptiste is [...] her foot next week with podiatry in [place] for diabetic foot ulcer. She has been [...] She has requested referrals to a neurologist, talent development consultant, and biochemical development engineer at [facility]. She has a history of [...] ORTHOPEDIC SURGERY left foot surgery PACEMAKER INSERTION NV AMPUTATION TOE METATARSOPHALANGEAL JOINT Left 04/01/2024 Procedure: AMPUTATION LEFT HALLUX; Surgeon: Shameka Castillo DPM; Location: [facility] Main OR; Service: Podiatry Family History Problem [...] (two) times a day . Dexcom G6 Hide Buyer Misc Use as directed for continuous glucose [...] total) by mouth (more content not included)... [facility] 07-15-2024 History of Present illness Narrative [facility] INTERNAL MEDICINE [address] [place] [address]. [place] [address] Subjective Patient ID: Addie Jean Baptiste is a 49 y.o. female here for Chief Complaint Patient presents with Acute Visit [facility] for shower chair After discussing the use [...] her foot next week with podiatry in [place] for diabetic foot ulcer. She has been [...] She has requested referrals to a neurologist, talent development consultant, and biochemical development engineer at [facility]. She has a history of [...] ORTHOPEDIC SURGERY left foot surgery PACEMAKER INSERTION NV AMPUTATION TOE METATARSOPHALANGEAL JOINT Left 04/01/2024 Procedure: AMPUTATION LEFT HALLUX; Surgeon: Shameka Castillo DPM; Location: [facility] Main OR; Service: Podiatry Family History Problem [...] (two) times a day . Dexcom G6 Hide Buyer Misc Use as directed for continuous glucose [...] 60 tablet 2 naloxone (NARCAN) 4 mg/actuation [place] Administer 1 spray into one nostril for [...] Stephany Pelayo PA-C documented in this encounter [facility] 07-14-2024 Telephone encounter Note Percocet can remain at BID dosing for now. She can discuss this with Dr Velez in July [facility] 07-14-2024 Miscellaneous Notes Percocet can remain [...] normally. Noted slightly slurred speech. Encounter in [facility] dated today with PCP addressing seizure. Pt called to check on rx request. She states that her recreation specialist was supposed to call our office to [...] She verbalized understanding. documented in this encounter [facility] 07-14-2024 Telephone encounter Note Pt lvm [...] normally. Noted slightly slurred speech. Encounter in [facility] dated today with PCP addressing seizure. [facility] 07-13-2024 Telephone encounter Note Pt called to check on rx request. She states that her recreation specialist was supposed to call our office to [...] more than a year. She verbalized understanding. [facility] 07-05-2024 History of Present illness Narrative Images from the original note were not included. Patient: Addie Jean Baptiste : 1975 PCP: Noms Provider MD Jeanne SUBJECTIVE This is a [...] History: Diagnosis Date Diabetes mellitus (CMS/HCC) Hypertension (CMS/[facility]) Medications: Current Outpatient Medications: amoxicillin-clavulanate (Augmentin) 875-125 [...] , Rfl: ergocalciferol (Vitamin D2) 1.25 MG (07494 UT) capsule, Take 1 capsule by mouth [...] Resource Strain: Medium Risk (01/13/2024) Received from [facility] Overall Financial Resource Strain (CARDIA) Difficulty of Paying Living Expenses: Somewhat hard Food Insecurity: No Food Insecurity (04/27/2024) Received from [facility] Hunger Vital Sign Worried About Running Out of Food in the Last Year: Never true Ran Out of Food in the Last Year: Never true Transportation Needs: No Transportation Needs (04/27/2024) Received from [facility] PRAPARE - Transportation Lack of Transportation (Medical): No Lack of Transportation (Non-Medical): No Physical Activity: Not on file Stress: Not on file Social Connections: Not on file Intimate Partner Violence: Not At Risk (04/27/2024) Received from [facility] Humiliation, Afraid, Rape, and Kick questionnaire Fear of Current or Ex-Partner: No Emotionally Abused: No Physically Abused: No Sexually Abused: No Housing Stability: Low Risk (04/27/2024) Received from [facility] Housing Stability Vital Sign Unable to [...] noted mild venous stasis disease noted Neuro: [place] 5.07 monofilament absent Vibratory sensation diminished Musculoskeletal: [...] procedure. LUPE Capellan documented in this encounter [facility] 06-07-2024 History of Present illness Narrative Confirmation received. Pending scanning. Received fax from [employer] for incontinence supplies. Forms completed, signed and faxed. Waiting for confirmation. documented in this encounter [facility] 05-31-2024 History of Present illness Narrative error documented in this encounter [facility] 05-27-2024 Telephone encounter Note Pt is scheduled for appt with [facility] [facility] on 06/08/24. [facility] 05-27-2024 Miscellaneous Notes Pt is scheduled for appt with [employer] on 06/08/24. ----- Message from Arcelia Whyte sent at 05/27/2024 1:23 PM EST ----- Regarding: Calling back with updated information Contact: Patient Patient called in [facility] and then call back with that information. Patient advised she is now scheduled for 06/08/24 at 1:20 and is requesting that her QUEtiapine (SEROQUEL) 400 MG tablet () be filled. Patient states she was not aware that the office closed early today but needs the fill as soon as possible. Requesting a call back at [phone]. Thanks documented in this encounter [facility] 05-27-2024 Telephone encounter Note ----- Message from Arcelia Whyte sent at 05/27/2024 1:23 PM EST ----- Regarding: Calling back with updated information Contact: Patient Patient called in [facility] was suppose to call her [facility] and make an appointment and then call back with that information. Patient advised she is now scheduled for 06/08/24 at 1:20 and is requesting that her QUEtiapine (SEROQUEL) 400 MG tablet () be filled. Patient states she was not aware that the office closed early today but needs the fill as soon as possible. Requesting a call back at [phone]. Thanks [facility] 05-13-2024 Instructions Mihai Elizalde CNP - [...] in 3 months documented in this encounter [facility] 05-13-2024 Note [facility] Interventional Pain Management Office [...] - She mentions a previous hospitalization at [facility], where a foot amputation was considered [...] ORTHOPEDIC SURGERY left foot surgery PACEMAKER INSERTION NV AMPUTATION TOE METATARSOPHA (more content not included)... [facility] 05-13-2024 History of Present illness Narrative [facility] Interventional Pain Management Office [...] - She mentions a previous hospitalization at [facility], where a foot amputation was considered [...] ORTHOPEDIC SURGERY left foot surgery PACEMAKER INSERTION NV AMPUTATION TOE METATARSOPHALANGEAL JOINT Left 04/01/2024 Procedure: AMPUTATION LEFT HALLUX; Surgeon: Shameka Castillo DPM; Location: [facility] Main OR; Service: Podiatry Social History Social [...] total) by mouth daily . Dexcom G6 Hide Buyer Misc Use as directed for continuous glucose [...] route daily . naloxone (NARCAN) 4 mg/actuation [place] Administer 1 spray into one nostril for [...] screen Please call Refill Line or send [place]art Refill Request to Pain Management office 7 [...] OPIOIDS Mihai Elizalde CNP Interventional Pain Management [facility] documented in this encounter [facility] 04-29-2024 Progress note Formatting of t his note might be different from the original. Spoke with Dr. Floyd Castillo, No dressing needed for patients foot. Leave open to air , Any drainage recommend neosporin and band-aid [facility] 04-29-2024 Miscellaneous Notes Spoke with Dr. [...] Outcome: Partially Met documented in this encounter [facility] 04-29-2024 Plan of care note Problem: [...] Absence of physical injury Outcome: Partially Met [facility] 04-29-2024 Note [facility] 04-29-2024 History of Present illness Narrative [facility] NOTE ASSESSMENT: [...] BID Harshad Rizzo MD 30 mg at 04/29/24 0831 ceFAZolin (ANCEF) IVPB 2 g (premix) 2,000 [...] injection 60 Units 60 Units Subcutaneous Nightly GrayLucina, USABILITY SPECIALIST 60 Units at 04/28/242107 insulin lispro (AdmeLOG,HumaLOG) [...] tablet 75 mcg 75 mcg Oral Daily Harsahd Rizzo MD 75 mcg at 04/29/24 0541 [...] Nightly Harshad Rizzo MD 25 mg at 04/28/242119 ondansetron (ZOFRAN) injection 4 mg 4 mg Intravenous Q6H PRN Harshad Rizzo MD 4 mg at 04/27/24 0310 oxyCODONE-acetaminophen (PERCOCET) 5-325 mg per tablet 1 tablet 1 tablet Oral Q4H PRN Harshad Rizzo MD 1 tablet at 04/29/24 08 pantoprazole (PROTONIX) EC tablet 40 mg 40 [...] daily . 90 tablet 1 Dexcom G6 Hide Buyer Misc Use as directed for continuous glucose [...] 100 each 2 naloxone (NARCAN) 4 mg/actuation [place] Administer 1 spray into one nostril for [...] -- 128.3 kg (282 lb 13.6 oz) 04/28/24 2353 -- -- -- -- 18 -- -- 04/28/241940 -- -- -- -- 18 -- -- 04/28/24 191 (!) 148/81 97.5 F (36.4 C) Oral [...] Reason for exam: Patient arrives with EMS ([facility]). She ambulated off of EMS cot with [...] signs and symptoms: Patient arrives with EMS ([facility]). She ambulated off of EMS cot with [...] EST I agree with assessment and plan. [facility] PROGRESS NOTE Assessment and Plan Addie Jean Baptiste is a 48 y.o. female patient of Stephany Pelayo PA-C with history of T2DM, HTN, bipolar disorder, and chronic back pain presented to [facility] on 01/12/2024 with left toe wound. Postop [...] Location: home Quality Measures DVT Prophylaxis: lovenox Luque Catheter: absent Code Status Full code Primary [...] normal coloration Psych: normal mood and affect [facility] PRO[facility]ESS NOTE Assessment and Plan Addie Jean Baptiste is a 48 y.o. female patient of Stephany Pelayo PA-C with history of T2DM, HTN, bipolar disorder, and chronic back pain presented to [facility] on 01/12/2024 with left toe wound. Postop [...] Location: home Quality Measures DVT Prophylaxis: lovenox Luque Catheter: absent Code Status Full code Primary [...] mood and affect documented in this encounter [facility] 04-29-2024 Hospital course Narrative Images from the original note were not included. [facility] DISCHARGE SUMMARY -- [facility] Addie Jean Baptiste Admitted: 04/26/2024 Discharge Date: 04/29/24 PCP Handoff Recommended Outpatient Testing Follow up with podiatry Results Pending At Discharge NONE Clinical Summary Addie Jean Baptiste is a 48 y.o. female patient of Stephany Pelayo PA-C with history of T2DM, HTN, bipolar disorder, and chronic back pain presented to [facility] on 01/12/2024 with left toe wound. Postop [...] daily . Quantity: 90 tablet Dexcom G6 Hide Buyer Misc Generic drug: blood-glucose meter,continuous Use as [...] . Quantity: 100 each naloxone 4 mg/actuation [place] Commonly known as: NARCAN Administer 1 spray [...] 04/29/24, 8:26 AM documented in this encounter [facility] 04-28-2024 Telephone encounter Note Pt in hospital, infection in toe amputation site. Due for refill on 04/22/24. [facility] 04-28-2024 Miscellaneous Notes Pt in hospital, infection in toe amputation site. Due for refill on 04/22/24. documented in this encounter [facility] 04-28-2024 Stephan Rivera [facility] 04-28-2024 Plan of care note Problem: Actual [...] Absence of pressure injury Outcome: Partially [facility] 04-28-2024 Note [facility] 04-27-2024 Consult note Associated Order (s): IP CONSULT TO PODIATRY Images from the original note were not included. [facility] H&P/CONSULT ASSESSMENT: Diabetes [...] removing the stitches. Betadine dry sterile dressing change analyst the amputation site. -- OR Plans: None - ABX: cefazolin based on recent surgical cultures, per primary - DSG: Betadine dry sterile dressing change analyst the amputation site. - WBS: Heel weightbearing [...] PMH listed below who WAS ADMITTED TO [facility] ON 04/26/2024 WITH postop toe infection Chief [...] ORTHOPEDIC SURGERY left foot surgery PACEMAKER INSERTION NV AMPUTATION TOE METATARSOPHALANGEAL JOINT Left 04/01/2024 Procedure: AMPUTATION LEFT HALLUX; Surgeon: Shameka Castillo DPM; Location: [facility] Main OR; Service: Podiatry FAMILY MEDICAL HISTORY: [...] Units 45 Units Subcutaneous Nightly Lucina Preciado, USABILITY SPECIALIST insulin lispro (AdmeLOG,HumaLOG) injection 0-15 Units 0-15 [...] daily . 90 tablet 1 Dexcom G6 Hide Buyer Misc Use as directed for continuous glucose [...] 100 each 2 naloxone (NARCAN) 4 mg/actuation [place] Administer 1 spray into one nostril for [...] Reason for exam: Patient arrives with EMS ([facility]). She ambulated off of EMS cot with [...] signs and symptoms: Patient arrives with EMS ([facility]). She ambulated off of EMS cot with [...] Castillo DPM at 04/28/2024 8:17 AM EST [facility] 04-27-2024 Consult note Associated Order (s): IP CONSULT TO PODIATRY Images from the original note were not included. [facility] [place] [facility] H&P/CONSULT ASSESSMENT: Diabetes [...] removing the stitches. Betadine dry sterile dressing change analyst the amputation site. -- OR Plans: None - ABX: cefazolin based on recent surgical cultures, per primary - DSG: Betadine dry sterile dressing change analyst the amputation site. - WBS: Heel weightbearing [...] PMH listed below who WAS ADMITTED TO [facility] ON 04/26/2024 WITH postop toe infection Chief [...] ORTHOPEDIC SURGERY left foot surgery PACEMAKER INSERTION NV AMPUTATION TOE METATARSOPHALANGEAL JOINT Left 04/01/2024 Procedure: AMPUTATION LEFT HALLUX; Surgeon: Shameka Castillo DPM; Location: [facility] Main OR; Service: Podiatry FAMILY MEDICAL HISTORY: [...] Units 45 Units Subcutaneous Nightly Lucina Preciado, USABILITY SPECIALIST insulin lispro (AdmeLOG,HumaLOG) injection 0-15 Units 0-15 Units Subcutaneous at bedtime Harshad Rizzo MD 9 Units at 04/27/24 0242 insulin lispro (AdmeLOG,HumaLOG) injection 0-30 Units 0-30 Units Subcutaneous TID AC Harshad Rizoz MD 18 Units at 04/27/24 1137 lamoTRIgine [...] capsule 75 mg 75 mg Oral BID Hrashad Rizzo MD 75 mg at 04/27/24 0803 [...] daily . 90 tablet 1 Dexcom G6 Hide Buyer Misc Use as directed for continuous glucose [...] 100 each 2 naloxone (NARCAN) 4 mg/actuation [place] Administer 1 spray into one nostril for [...] Reason for exam: Patient arrives with EMS ([facility]). She ambulated off of EMS cot with [...] signs and symptoms: Patient arrives with EMS ([facility]). She ambulated off of EMS cot with [...] 8:17 AM EST documented in this encounter [facility] 04-27-2024 Note [facility] ostal 04-27-2024 Plan of care note Problem: Actual [...] Absence of pressure injury Outcome: Partially Met [facility] 04-26-2024 History and physical note [facility] -- [facility] Patient Name: Addie Jean Baptiste : 1975 MR #: [id number] Admit Date: 04/26/2024 Physicians: Stephany Pelayo PA-C (Family); No ref. provider found (Referring) Addie Jean Baptiste is a 48 y.o. female patient of Stephany Pelayo PA-C with history of T2DM, HTN, bipolar disorder, and chronic back pain presented to [facility] on 01/12/2024 with left toe wound. Assessment [...] ED no Quality Measures DVT Prophylaxis: lovenox Luque Catheter: absent Medication Reconciliation: Verified Risk variables [...] ORTHOPEDIC SURGERY left foot surgery PACEMAKER INSERTION NV AMPUTATION TOE METATARSOPHALANGEAL JOINT Left 04/01/2024 Procedure: AMPUTATION LEFT HALLUX; Surgeon: Shameka Castillo DPM; Location: [facility] Main OR; Service: Podiatry Family History Family [...] 04/26/24 11:47 PM Medications 04/26/24 11:47 PM [facility] 04-26-2024 History and physical note [facility] -- [facility] Patient Name: Addie Jean Baptiste : 1975 MR #: [id number] Admit Date: 04/26/2024 Physicians: Stephany Pelayo PA-C (Family); No ref. provider found (Referring) Addie Jean Baptiste is a 48 y.o. female patient of Stephany Pelayo PA-C with history of T2DM, HTN, bipolar disorder, and chronic back pain presented to [facility] on 01/12/2024 with left toe wound. Assessment [...] tighter glycemic control Hypertension Continue metoprolol and HSAJI inhibitor Seizure disorder Continue home keppra Obesity Body mass index is 45.73 kg/m . Discussed dietary and lifestyle modifications Residence prior to admission: house or apartment Was patient transferred from outlying hospital or ED no Quality Measures DVT Prophylaxis: lovenox Luque Catheter: absent Medication Reconciliation: Verified Risk variables [...] ORTHOPEDIC SURGERY left foot surgery PACEMAKER INSERTION NV AMPUTATION TOE METATARSOPHALANGEAL JOINT Left 04/01/2024 Procedure: AMPUTATION LEFT HALLUX; Surgeon: Shameka Castillo DPM; Location: [facility] Main OR; Service: Podiatry Family History Family [...] 04/26/24 11:47 PM documented in this encounter [facility] 04-26-2024 Physician Emergency department Note [facility] EMERGENCY DEPARTMENT ED Provider Note: Name: Addie Jean Baptiste CHIEF COMPLAINT: Chief Complaint Patient presents with Post-op Problem Toe Pain PCP: Stephany Pelayo PA-C HPI: Addie Jean Baptiste is a 49 y.o. female presents with left first toe swelling after surgery, Mar[place]ella reports that her left big toe was recently operated on, she had a partial amputation for signs of osteomyelitis. She reports Shamekacheng Castillo performed a partial amputation in early [...] History: Diagnosis Date Anxiety Bipolar 1 disorder ([facility]) Chronic back pain Chronic kidney disease, stage 3 unspecified ([facility]) Coronary artery disease Depression Diabetes mellitus ([facility]) Hypertension MRSA (methicillin resistant Staphylococcus aureus) Pacemaker Seizures ([facility]) Stroke ([facility]) Patient Active Problem List Diagnosis Hypertension S/P placement of cardiac pacemaker Type 2 diabetes mellitus with diabetic polyneuropathy, with long-term current use of insulin ([facility]) Bipolar 1 disorder ([facility]) Seizures ([facility]) Chronic chest pain GERD (gastroesophageal reflux disease) Hypothyroidism Diabetic peripheral neuropathy ([facility]) Insomnia Generalized weakness Muscle spasms of both lower extremities Bowel incontinence Vitamin B12 deficiency Vitamin D deficiency Cigarette nicotine dependence COPD (chronic obstructive pulmonary disease) ([facility]) Left-sided weakness History of stroke Visual loss, left eye Family history of pulmonary fibrosis Family history of dementia Urinary incontinence Chronic headaches Hypercholesterolemia CKD (chronic kidney disease) Retinal hemorrhage Diabetic ulcer of left great toe ([facility]) Hypertensive urgency Chronic pain syndrome Chronic pain of both knees Abdominal wound dehiscence Candidiasis Abnormal pigmentation of skin Toe osteomyelitis ([facility]) Postoperative infection PSurg: Past Surgical History: Procedure Laterality Date CHOLECYSTECTOMY FOOT SURGERY HYSTERECTOMY ORTHOPEDIC SURGERY left foot surgery PACEMAKER INSERTION NV AMPUTATION TOE METATARSOPHALANGEAL JOINT Left 04/01/2024 Procedure: AMPUTATION LEFT HALLUX; Surgeon: Shameka Castillo DPM; Location: [facility] Main OR; Service: Podiatry Allergies: Iodides, Ketorolac, [...] total) by mouth daily . Dexcom G6 Hide Buyer Misc Use as directed for continuous glucose [...] route daily . naloxone (NARCAN) 4 mg/actuation [place] Administer 1 spray into one nostril for [...] All other components within normal limits Narrative: [facility] has implemented the eGFR [...] Procedure Abnormality Status --------- ------ CBC Auto Differential[[id number]] Abnormal Final result Please view results for [...] call required?: No Jacoby Dooley MD 04/26/24 5637 Health 04-26-2024 Emergency department Note [facility] EMERGENCY DEPARTMENT ED Provider Note: Name: Addie [...] History: Diagnosis Date Anxiety Bipolar 1 disorder ([facility]) Chronic back pain Chronic kidney disease, stage 3 unspecified ([facility]) Coronary artery disease Depression Diabetes mellitus ([facility]) Hypertension MRSA (methicillin resistant Staphylococcus aureus) Pacemaker Seizures ([facility]) Stroke ([facility]) Patient Active Problem List Diagnosis Hypertension S/P placement of cardiac pacemaker Type 2 diabetes mellitus with diabetic polyneuropathy, with long-term current use of insulin ([facility]) Bipolar 1 disorder ([facility]) Seizures ([facility]) Chronic chest pain GERD (gastroesophageal reflux disease) Hypothyroidism Diabetic peripheral neuropathy ([facility]) Insomnia Generalized weakness Muscle spasms of both lower extremities Bowel incontinence Vitamin B12 deficiency Vitamin D deficiency Cigarette nicotine dependence COPD (chronic obstructive pulmonary disease) ([facility]) Left-sided weakness History of stroke Visual loss, left eye Family history of pulmonary fibrosis Family history of dementia Urinary incontinence Chronic headaches Hypercholesterolemia CKD (chronic kidney disease) Retinal hemorrhage Diabetic ulcer of left great toe ([facility]) Hypertensive urgency Chronic pain syndrome Chronic pain of both knees Abdominal wound dehiscence Candidiasis Abnormal pigmentation of skin Toe osteomyelitis ([facility]) Postoperative infection PSurg: Past Surgical History: Procedure Laterality Date CHOLECYSTECTOMY FOOT SURGERY HYSTERECTOMY ORTHOPEDIC SURGERY left foot surgery PACEMAKER INSERTION NV AMPUTATION TOE METATARSOPHALANGEAL JOINT Left 04/01/2024 Procedure: AMPUTATION LEFT HALLUX; Surgeon: Shameka Castillo DPM; Location: [facility] Main OR; Service: Podiatry Allergies: Iodides, Ketorolac, [...] total) by mouth daily . Dexcom G6 Hide Buyer Misc Use as directed for continuous glucose [...] 2 (two) times a day . lancets Mis 1 Lancet by Miscellaneous [...] by mouth daily . miscellaneous medical supply [facility] 1 each by Miscellaneous route daily . naloxone (NARCAN) 4 mg/actuation [place] Administer 1 spray into one nostril for [...] All other components within normal limits Narrative: [facility] has implemented the eGFR [...] Procedure Abnormality Status --------- ------ CBC Auto Differential[[id number]] Abnormal Final result Please view results for [...] amputation for signs of osteomyelitis. She reports Shamekacheng Castillo performed a partial amputation in early [...] call required?: No Jacoby Dooley MD 04/26/24 1482 Pt reports not taking her BP medication today Patient reports 10/10 pain and states she took her last percocet yesterday. Patient also reports that she does take medication for high blood pressure. Patient arrives with EMS ([facility]). She ambulated off of EMS cot with [...] arrival: Comments: 29 documented in this encounter [facility] 04-26-2024 Emergency department Note Pt reports not taking her BP medication today [facility] 04-26-2024 Emergency department Note Patient reports 10/10 pain and states she took her last percocet yesterday. Patient also reports that she does take medication for high blood pressure. [facility] 04-26-2024 Emergency department Triage note Patient arrives with EMS ([facility]). She ambulated off of EMS cot with [...] She reports redness, pain and clear drainage. [facility] 04-26-2024 Emergency department Note Bed: 18 Expected date: Expected time: Means of arrival: Comments: 29 [facility] 04-14-2024 Note Addended by: Jyoti ELIZALDE on: 04/14/2024 11:03 AM Modules accepted: Orders [facility] 04-14-2024 Miscellaneous Notes Addended by: MIHAI [...] 1 tablet left. documented in this encounter [facility] 04-12-2024 Telephone encounter Note Already sent remaining 15 tabs [facility] 04-12-2024 Miscellaneous Notes Already sent remaining 15 tabs Pt had to fill 15 tablets and pay oop due to insurance would not cover. Jean is trying to resubmit to insurance with updated info. But will need new rx for remaining 45 tablets. She only received 1 1/2 day supply and only has 1 tablet left. documented in this encounter [facility] 04-12-2024 Telephone encounter Note Pt had to fill 15 tablets and pay oop due to insurance would not cover. Jean is trying to resubmit to insurance with updated info. But will need new rx for remaining 45 tablets. She only received 1 1/2 day supply and only has 1 tablet left. [facility] 04-06-2024 History of Present illness Narrative PA request from [facility] for Omnipod faxed [facility] prescription request form complete for Omnipod / faxed documented in this encounter [facility] 04-04-2024 Hospital course Narrative Images from the original note were not included. [facility] DISCHARGE SUMMARY Addie Jean Baptiste Admitted: 03/24/2024 [...] disorder, and chronic back pain presented to [facility] on 03/25/2024 with left toe wound. Sepsis [...] dos eot 35U qHs Diabetic diet Consulted lumber estimator: Resume insulin pump at discharge, verified insulin [...] daily . Quantity: 90 tablet Dexcom G6 Hide Buyer Misc Generic drug: blood-glucose meter,continuous Use as [...] Disposition: Home with Home Health I saw Addei Jean Baptiste in person and spent > 30 min total on day of discharge Discharge instructions (including activity) provided to patient/family prior to leaving Completed by: Ruthy Dong MD on 04/04/24, 12:23 PM documented in this encounter [facility] 04-04-2024 Note [facility] 04-04-2024 History of Present illness Narrative [facility] [place] [facility] NOTE ASSESSMENT [...] capsule 500 mg 500 mg Oral Q12H Enrique Gonzales, BEATRIZ 500 mg at 11/10/24 2125 citalopram (CELEXA) tablet 40 mg 40 mg Oral Daily Juwan Smith MD 40 mg at 04/04/24 0857 enoxaparin (LOVENOX) syringe 40 mg 40 mg Subcutaneous BID Lowell Roberts [facility],PharmD 40 mg at 04/04/24 0856 hydrALAZINE (APRESOLINE) injection 10 mg 10 mg Intravenous Q6H PRN Leticia Rajput MD insulin glargine (LANTUS) injection 35 Units 35 Units Subcutaneous Nightly Leticia Rajput MD 35 Units at 04/03/242124 insulin lispro (AdmeLOG,HumaLOG) injection 0-15 Units 0-15 [...] mg 0.1 mg Intravenous PRN Floyd Rubin [facility],PharmD 0.1 mg at 03/28/24 0520 And naloxone (NARCAN) injection 0.4 mg 0.4 mg Intravenous PRN Floyd Rubin RPh,PharmD 0.4 mg at 03/26/24 2300 nicotine (NICODERM [...] Verio . 100 strip 5 Dexcom G6 Hide Buyer Misc Use as directed for continuous glucose [...] days Lab Units 04/04/24 0435 04/03/24 0440 04/02/24437 GLUCOSE mg/dL 245* 206* 233* BUN mg/dL [...] Abnormal ECG Confirmed by Inessa Rao MD ([id number]) on 03/25/2024 8:01:09 AM XR Toe(s) Left [...] with the assessment and plan as documented. [facility] PROGRESS NOTE Assessment and Plan Addie Jean Baptiste is a 48 y.o. female patient of Stephany Pelayo PA-C with history of T2DM, HTN, bipolar disorder, and chronic back pain presented to [facility] on 03/25/2024 with left toe wound. Sepsis [...] dos eot 35U qHs Diabetic diet Consulted lumber estimator: Resume insulin pump at discharge, verified insulin [...] 04/04 Patient requires continued hospitalization due to: Procurement Inspector request Discharge Location:home Quality Measures DVT Prophylaxis: lovenox Luque Catheter: absent Code Status Full Primary Contact [...] normal coloration Psych: normal mood and affect [facility] PROGRESS NOTE Assessment and Plan Addie Jean Baptiste is a 48 y.o. female patient of Stephany Pelayo PA-C with history of T2DM, HTN, bipolar disorder, and chronic back pain presented to [facility] on 03/25/2024 with left toe wound. Sepsis [...] night Blood sugar improving Diabetic diet Consult lumber estimator: Hypertension Hyperlipidemia Continue to hold SHAJI inhibitor, [...] 04/04 Patient requires continued hospitalization due to: Procurement Inspector request Discharge Location:home Quality Measures DVT Prophylaxis: lovenox Luque Catheter: absent Code Status Full Primary Contact [...] and affect [facility] PROGRESS NOTE ASSESSMENT AND PLAN: Diabetes [...] Jean Baptiste Admit Date: [id number] MR #: [id number] : 1975 Perpetual Assessment: Addie Jean Baptiste [...] 9.1 PHOSPHORUS mg/dL 2.8 2.7 3.0 Urinalysis [facility] PROGRESS NOTE Assessment and Plan Addie Organ is a 48 y.o. female patient of Stephany Pelayo PA-C with history of T2DM, HTN, bipolar disorder, and chronic back pain presented to [facility] on 03/25/2024 with left toe wound. Sepsis [...] night Blood sugar improving Diabetic diet Consult lumber estimator: Hypertension Hyperlipidemia Continue to hold SHAJI inhibitor, [...] Discharge Location:home Quality Measures DVT Prophylaxis: lovenox Luque Catheter: absent Code Status Full Primary Contact Information Subjective Patient seen and examined this morning. Back pain improved. Patient states she is requested amputation per recreation specialist Objective BP 138/82 (BP Location: Left arm, [...] pain Nutrition Related Allergies/Intolerances: latex Cultural or Christianity Dietary Needs :No Cultural or Christianity Dietary needs noted Patient/family comments:Deferred: Pt sleeping [...] Inhibitors (Chronic Use) [place] [address] [place] Office [phone] Images from the original note were not included. [facility] [place] [facility]ESS NOTE ASSESSMENT [...] capsule 500 mg 500 mg Oral Q12H Enrique Gonzales, BEATRIZ 500 mg at 03/31/24902 citalopram (CELEXA) tablet 40 mg 40 mg Oral Daily Juwan Smith MD 40 mg at 03/31/24902 enoxaparin (LOVENOX) syringe 40 mg 40 mg Subcutaneous BID Lowell Roberts, Francesco,PharmD 40 mg at 03/31/24902 insulin glargine (LANTUS) injection 30 Units 30 Units Subcutaneous Nightly Leticia Rajput MD 30 Units at 03/30/248 insulin lispro (AdmeLOG,HumaLOG) injection 0-15 Units 0-15 Units Subcutaneous at bedtime Merrick Almanza MD insulin lispro (AdmeLOG,HumaLOG) injection 0-30 Units 0-30 Units Subcutaneous TID AC Merrick Almanza MD 9 Units at 03/30/24 1130 lamoTRIgine (LAMICTAL) tablet 25 mg 25 mg Oral BID Juwan Smith MD 25 mg at 03/31/24 0903 levothyroxine (SYNTHROID, LEVOTHROID) tablet 75 mcg 75 mcg Oral Daily Juwan Smith MD 75 mcg at 03/31/24 0618 naloxone (NARCAN) injection 0.1 mg 0.1 mg Intravenous PRN Floyd Rubin [facility],PharmD 0.1 mg at 03/28/24 0520 And naloxone (NARCAN) injection 0.4 mg 0.4 mg Intravenous PRN Floyd Rubin [facility],PharmD 0.4 mg at 03/26/24 2300 nicotine (NICODERM CQ) 14 mg/24 hr 1 patch 1 patch Transdermal Daily Maya Franklin PA-C 1 patch at 03/31/24 0903 nortriptyline (PAMELOR) capsule 25 mg 25 mg Oral Nightly Juwan Smith MD 25 mg at 03/30/248 ondansetron (ZOFRAN) injection 4 mg 4 mg Intravenous Q6H PRN Jennifer Lopez CNP 4 mg at 03/30/24 1508 oxyCODONE-acetaminophen (PERCOCET) 5-325 mg per tablet 1 tablet 1 tablet Oral Q4H PRN Juwan Smith MD 1 tablet at 03/31/24 1033 pantoprazole (PROTONIX) EC tablet 40 mg 40 mg Oral QAM AC Juwan Smith MD 40 mg at 03/31/24 0902 pregabalin (LYRICA) capsule 75 mg 75 mg Oral BID Juwan Smith MD 75 mg at 03/31/24 0902 QUEtiapine (SEROQUEL) tablet 800 mg 800 mg Oral Nightly Juwan Smith MD 800 mg at 03/30/24 2128 sodium chloride (PF) (NS) flush 5 mL [...] Verio . 100 strip 5 Dexcom G6 Hide Buyer [facility] Use as directed for continuous glucose monitoring [...] Abnormal ECG Confirmed by Inessa Rao MD ([id number]) on 03/25/2024 8:01:09 AM XR Toe(s) Left [...] coordination of care and direct patient management. [facility] PROGRESS NOTE Assessment and Plan Addie Organ is a 48 y.o. female patient of Stephany Pelayo PA-C with history of T2DM, HTN, bipolar disorder, and chronic back pain presented to [facility] on 03/25/2024 with left toe wound. Right [...] night Blood sugar improving Diabetic diet Consult lumber estimator: Hypertension Hyperlipidemia Continue to hold metoprolol and [...] Discharge Location:home Quality Measures DVT Prophylaxis: lovenox Luque Catheter: absent Code Status Full Primary Contact [...] Addie Organ Admit Date: 10300628 MR #: [id number] : 1975 Perpetual Assessment: Addie Jean Baptiste [...] Units 03/31/24 0616 03/30/24 0549 03/29/24 043 WBC K/mcL 6.83 6.90 7.18 HGB g/dL 9.1* 9.4* 8.8* HCT % 26.9* 29.7* 28.0* PLT K/mcL 266 263 264 Results from last 7 days Lab Units 03/31/24 0616 03/30/24 0549 03/29/24 0431 SODIUM mmol/L 143 139 137 POTASSIUM mmol/L [...] UR /hpf 5 BACTERIA, UR /hpf Rare* [facility] PROGRESS NOTE Assessment and Plan Addie Organ is a 48 y.o. female patient of Stephany Pelayo PA-C with history of T2DM, HTN, bipolar disorder, and chronic back pain presented to [facility] on 03/25/2024 with left toe wound. Sepsis [...] 30 units at night Diabetic diet Consult lumber estimator: Hypertension Hyperlipidemia Continue to hold metoprolol and [...] Location: TBD Quality Measures DVT Prophylaxis: lovenox Luque Catheter: absent Code Status Full Primary Contact [...] Jean Baptiste Admit Date: [id number] MR #: [id number] : 1975 Perpetual Assessment: Addie Jean Baptiste [...] not included. [facility] [place] [facility] NOTE ASSESSMENT [...] Units 0-30 Units Subcutaneous TID AC Merrick Alamnza MD 15 Units at 03/30/24 0720 lamoTRIgine (LAMICTAL) tablet 25 mg 25 mg Oral BID Juwan Smith MD 25 mg at 03/30/24 0714 levothyroxine (SYNTHROID, LEVOTHROID) tablet 75 mcg 75 mcg Oral Daily Juwan Smith MD 75 mcg at 03/30/24 0511 naloxone (NARCAN) injection 0.1 mg 0.1 mg Intravenous PRN Floyd Rubin RPh,PharmD 0.1 mg at 03/28/24 0520 And naloxone [...] mL/hr at 03/30/24 0718 3.375 g at 03/30/24 0718 pregabalin (LYRICA) capsule 75 mg 75 mg Oral BID Juwan Smith MD 75 mg at 03/30/24 0715 QUEtiapine (SEROQUEL) tablet 800 mg 800 mg Oral Nightly Juwan Smith MD 800 mg at 03/29/244 sodium chloride (PF) (NS) flush 5 mL [...] Verio . 100 strip 5 Dexcom G6 Hide Buyer Misc Use as directed for continuous glucose [...] Abnormal ECG Confirmed by Inessa Rao MD ([id number]) on 03/25/2024 8:01:09 AM XR Toe(s) Left [...] Jean Baptiste Admit Date: [id number] MR #: [id number] : 1975 Perpetual Assessment: Addie Jean Baptiste [...] Results from last 7 days Lab Units 03/29/2443003/28/24 03003/27/24 043 SODIUM mmol/L 137 137 140 POTASSIUM [...] UR /hpf 5 BACTERIA, UR /hpf Rare* [facility] PROGRESS NOTE Assessment and Plan Addie Organ is a 48 y.o. female patient of Stephany Pelayo PA-C with history of T2DM, HTN, bipolar disorder, and chronic back pain presented to [facility] on 03/25/2024 with left toe wound. Sepsis [...] with 50-100 K colonies of E. Coli Claudiasyn T2DM on insulin pump Diabetic peripheral neuropathy Last A1c 9.9 % in 03/22/2024 Home insulin regimen: insulin pump Pump with no insuline, will start Lantus 20u at night today Diabetic diet Consult lumber estimator: Hypertension Hyperlipidemia Continue to hold metoprolol and [...] Location: TBD Quality Measures DVT Prophylaxis: lovenox Luque Catheter: absent Code Status Full Primary Contact [...] normal coloration Psych: normal mood and affect [facility] PRO[facility]ESS NOTE Assessment and Plan Addie Jean Baptiste is a 48 y.o. female patient of Stephany Pelayo PA-C with history of T2DM, HTN, bipolar disorder, and chronic back pain presented to [facility] on 03/25/2024 with left toe wound. Hypotension [...] to continue insulin pump Diabetic diet Consult lumber estimator: Admits that she has not been bolusing [...] Location: TBD Quality Measures DVT Prophylaxis: lovenox Luque Catheter: absent Code Status Full Primary Contact [...] Jean Baptiste Admit Date: [id number] MR #: [id number] : 1975 Perpetual Assessment: Addie Jean Baptiste [...] /hpf Rare* [facility] [place] [facility] SURGICAL PROGRESS NOTE ASSESSMENT [...] mg 30 mg Subcutaneous Daily Radha Castillo, [facility],PharmD insulin lispro (AdmeLOG,HumaLOG) injection 0-15 Units [...] 50 mg 50 mg Oral Nightly PRN Jwuan Smith MD Medications Prior to Admission Medication [...] Verio . 100 strip 5 Dexcom G6 Hide Buyer Mis Use as directed for continuous glucose [...] (!) 11 97 % 03/28/24 0742 (!) 96/ 98.4 F (36.9 C) Oral 78 (!) [...] Abnormal ECG Confirmed by Inessa Rao MD ([id number]) on 03/25/2024 8:01:09 AM XR Toe(s) Left [...] with the assessment and plan as documented. [facility] PROGRESS NOTE Assessment and Plan Addie Jean Baptiste is a 48 y.o. female patient of Stephany Pelayo PA-C with history of T2DM, HTN, bipolar disorder, and chronic back pain presented to [facility] on 03/25/2024 with left toe wound. Hypotension, [...] to continue insulin pump Diabetic diet Consult lumber estimator: Admits that she has not been bolusing [...] Location: TBD Quality Measures DVT Prophylaxis: lovenox Luque Catheter: absent Code Status Full Primary Contact [...] services and availability. Rev. Fawn Hinton MDiv, [facility] Staff Data Collection Associate [facility] Patients Response to Pastoral Care: Appeared to be well-engaged Planning for Future Visits: PRN 03/27/24 1040 Visit Background Visit With Patient Visit By Staff Data Collection Associate Visit Progression Introduction Visit Requested By Data Collection Associate Initiated Visit Source Data Collection Associate Initiated Visit Type Inpatient;Rounding Visit Circumstances and Events Routine Visit Visit Length (minutes) 30 Patient's Response to Pastoral Care Appeared to be well-engaged Visit Planning PRN Spiritual Assessment Assessed during this visit Christianity Assessment Not assessed during this visit Family assessment provided? Not assessed during this visit Patient Spiritual Needs Assessment Sources of Connection Daughter;Granddaughter;Grandson;So n Belief Practices Not Discussed Coping Mechanisms Family Support Spiritual Diagnosis Disconnected from Sources of Support Facilitated Interventions Active Listening;Explained Role of the Data Collection Associate;Goal Setting Spiritual/Emotional Outcomes Appears less anxious;Appears more [...] Denies needs. [facility] [place] INPATIENT PROGRESS NOTE ASSESSMENT AND PLAN: Diabetes [...] 8.1* ALT U/L 16 AST U/L 16 [facility] PROGRESS NOTE Assessment and Plan Addie Jean Baptiste is a 48 y.o. female patient of Stephany Pelayo PA-C with history of T2DM, HTN, bipolar disorder, and chronic back pain presented to [facility] on 03/25/2024 with left toe wound. Left [...] to continue insulin pump Diabetic diet Consult lumber estimator: Admits that she has not been bolusing [...] Location: TBD Quality Measures DVT Prophylaxis: lovenox Luque Catheter: absent Code Status Full Primary Contact [...] Staphylococcus aureus) Pacemaker Seizures (HCC) Stroke (HCC) Objective: Estimated Creatinine Clearance: 38.6 mL/min (A) [...] (H) Pharmacist: Floyd Rubin RPh,PharmD Contact Number: [phone] Spoke with MD regarding right chest port. [...] distress. Care continues. documented in this encounter [facility] 04-04-2024 Miscellaneous Notes Problem: Actual or [...] (48 y.o.) Date of Service: 04/01/2024 CSN: [id number] Procedure(s): AMPUTATION LEFT HALLUX IPJ Pre-Operative Diagnoses: * osteomyelitis Post-Operative Diagnoses: * Same as Pre-Op Diagnosis Surgeons and Role: * Shameka Castillo DPM - Primary Anesthesiologist: Mk [place] MD MINERAL ECONOMIST: Monique Palomares CRNA Icu Nurse: Agueda Hunt RN Scrub Person: Monique Cheatham [...] 03/29/24 0929 Area % Change 0 03/29/24 0929 Wound Progress Initial exam 03/29/24 0929 Drainage Amount Scant 03/31/241933 Drainage Description Red [...] Chlorhexadine 03/31/24 06 Primary Dressing Adhesive bandage 03/31/24 0758 Secondary Dressing Adhesive bandage 03/31/24 075 Compression Dressing Not Applicable 03/30/24 1926 Wound 04/01/24 Incision Toe Left (Active) Wound [...] or if patient needs to be reassessed. Enrique Anthony CNP [facility] - Infectious Diseases Office: [phone] Attempted to call report and phone was [...] Reduced pain sensation Outcome: Partially Met Notified [facility]/Dr rBar that patient's BP was 71/46 with slurred speech and Blood sugar of 348. Dr Brar came to the floor and seen patient. See new orders. [facility] Significant Event Note Reason for Call: Hypotension [...] - admitting glucose 646 HgbA1c 9.9 Consult lumber estimator Lactic acidosis LA 3.0 - 2.1 IVF [...] Outcome: Partially Met documented in this encounter [facility] 04-03-2024 Note [facility] 04-02-2024 Note [facility] 04-01-2024 Note [facility] 04-01-2024 Note [facility] 04-01-2024 Note [facility] 03-31-2024 Note [facility] 03-31-2024 Consult note Associated Order (s): [...] medical history of Anxiety, Bipolar 1 disorder ([facility]), Chronic back pain, Chronic kidney disease, stage 3 unspecified ([facility]), Coronary artery disease, Depression, Diabetes mellitus ([facility]), Hypertension, MRSA (methicillin resistant Staphylococcus aureus), Pacemaker, Seizures ([facility]), and Stroke ([facility]). Left DFI with ?OM: podiatry following with [...] or discussed with Dr. Bean Anthony CNP [facility] - Infectious Diseases Office: [phone] Inpatient consult to Infectious Diseases Consult performed by: Enrique Anthony CNP Consult ordered by: Leticia Rajput MD Reason for consult: osteo big toe Chief Complaint: Toe pain HPI: Addie Jean Baptiste is a 48 y.o. female has a past medical history of Anxiety, Bipolar 1 disorder ([facility]), Chronic back pain, Chronic kidney disease, stage 3 unspecified ([facility]), Coronary artery disease, Depression, Diabetes mellitus ([facility]), Hypertension, MRSA (methicillin resistant Staphylococcus aureus), Pacemaker, Seizures ([facility]), and Stroke ([facility]). . She presented on 03/24/2024 with toe [...] Verio . 100 strip 5 Dexcom G6 Hide Buyer Misc Use as directed for continuous glucose monitoring . 1 each 0 Dexcom G6 Sensor Ismran Use as directed for continuous glucose monitoring [...] Patient Name: Addie Jean Baptiste MR #: [id number] : 1975 Requesting provider: hospitalist Reason for [...] sugar. One Touch Verio . Dexcom G6 Hide Buyer Misc Use as directed for continuous glucose [...] I have reviewed Progress Notes in the [facility] EHR and CareEverywhere. [x] I have interpreted/reviewed lab tests and radiography data in the [facility] EHR. [x] I have discussed the case with the primary service. [x] I have ordered appropriate tests/labs Comments: Thank you for allowing us to participate in the care of this patient. We will continue to follow. Please call if questions or concerns arise. Associated Order(s): IP CONSULT TO ROTATING EQUIPMENT ENGINEER Critical Care Consult Note Reason for Consultation: [...] total) by mouth nightly . 01/27/24 Yes Rafaela Medrano CNP busPIRone (BUSPAR) 30 MG tablet Take 1 (one) tablet (30 mg total) by mouth 2 (two) times a day . Yes Rosario Sanchez MD chlorthalidone (HYGROTON) 25 MG tablet Take [...] times a day . 02/08/24 Yes Rosario Sanchez MD levETIRAcetam (KEPPRA) 1000 MG tablet Take [...] fill: 30) . 03/24/24 04/23/24 Yes Jim Velez, pantoprazole (PROTONIX) 40 MG tablet Take 1 [...] (one) tablet by mouth daily . Yes ProviderManuel MD QUEtiapine (SEROQUEL) 400 MG tablet Take 2 (two) tablets (800 mg total) by mouth nightly . 02/08/24 05/08/24 Yes Rosario Sanchez MD timolol (TIMOPTIC) 0.5 % ophthalmic solution Administer 1 (one) drop into the left eye daily . 12/15/23 Yes ProviderManuel MD tiZANidine (Zanaflex) 4 MG tablet Take 2 tabs p.o. nightly . 03/09/24 Yes Mihai Elizalde CNP traZODone (DESYREL) 50 MG tablet Take 1 (one) tablet (50 mg total) by mouth nightly as needed . 02/08/24 Yes Rosario Sanchez MD alcohol swabs PadM Apply 1 (one) Swab. topically 5 (five) times a day Clean area before administering insulin. . 12/08/23 06/05/24 Sahara Sanchez MD blood sugar diagnostic (glucose blood) strips by Miscellaneous route 3 (three) times a day As a backup to CGM to test blood sugar. One Touch Verio . 12/08/23 06/05/24 Sahara Sanchez MD Dexcom G6 Hide Buyer Misc Use as directed for continuous glucose [...] Gen 5, Crtg 01/29/24 Provider, MD Manuel Omnipod Insulin Refill Crtg 04/16/20 Provider, MD Manuel [...] further details. Associated Order(s): IP CONSULT TO CONE EXAMINER; IP CONSULT TO CONE EXAMINER Admission Dx: Reviewed H&P, Chart Review and [...] not included. [facility] [place] ASSESSMENT AND PLAN: Diabetes T2 with neuropathy [...] y.o. YEAR OLD female WAS ADMITTED TO [facility] ON 03/24/2024 WITH Chief Complaint Patient presents [...] age undetermined Abnormal ECG Confirmed by Inessa aRo MD ([id number]) on 03/25/2024 8:01:09 AM XR Toe(s) Left [...] this for BASAL RATE DOCUMENTATIONS) Miscellaneous Q12H [facility] Juwan Smith MD And Subcutaneous Insulin Pump [...] 250 mL 1,250 mg Intravenous Q24H Floyd Rubin, [facility],PharmD Medications Prior to Admission Medication Sig [...] daily . 90 tablet 1 Dexcom G6 Hide Buyer Misc Use as directed for continuous glucose [...] needed . 90 tablet 0 Shameka Castillo DPM documented in this encounter [facility] 03-31-2024 Note [facility] 03-31-2024 [facility] 03-30-2024 History of Present illness Narrative [facility] prescription request form complete for Omnipod / faxed documented in this encounter [facility] 03-30-2024 Note [facility] 03-30-2024 Note [facility] 03[facility]30-2024 Note [facility] 03-29-2024 [facility] 03-29-2024 [facility] 03-28-2024 Note [facility] 03-28-2024 Note [facility] 03-28-2024 Note [facility] 03-27-2024 Note [facility] 03-26-2024 Note [facility] 03-26-2024 Note [facility] 03-25-2024 History and physical note Images from the original note were not included. [facility] HISTORY AND PHYSICAL -- [facility] Patient Name: Addie Jean Baptiste : 1975 MR #: [id number] Admit Date: 03/24/2024 Physicians: Stephany Pelayo PA-C (Family); No ref. provider found (Referring) Addie Jean Baptiste is a 48 y.o. female patient of Stephany Pelayo PA-C with history of T2DM, HTN, bipolar disorder, and chronic back pain presented to [facility] on 03/25/2024 with left toe wound. Left [...] ED no Quality Measures DVT Prophylaxis: lovenox Luque Catheter: absent Medication Reconciliation: Verified Admitted with [...] expedite correspondence this note was generated by [employer] voice recognition software. The voice recognition software is inherently subject to errors including those of syntax and sound-alike substitutions which may escape proofreading. If such errors are discovered, or if there are any questions or concerns regarding the recommendations/plan of care, please contact the author of the note prior to undertaking the recommendations/plan of care. documented in this encounter [facility] 03-24-2024 Emergency department Note Associated Order(s): ECG 12- Lead Images from the original note were not included. [place] [id number] NAME: Addie Jean Baptiste AGE: 48 y.o. PCP: Stephany Pelayo PA-C CSN: [id number] Chief Complaint: Toe Pain CLINICAL IMPRESSION: 1. [...] available in inpatient encounters. Please contact a cable systems installer. --- HISTORY Chief Complaint: Toe Pain History [...] total) by mouth daily . Dexcom G6 Hide Buyer Misc Use as directed for continuous glucose [...] All other components within normal limits Narrative: [facility] has implemented the eGFR [...] Procedure Abnormality Status --------- ------ CBC Auto Differential[[id number]] Abnormal Final result Please view results for [...] sinus rhythm and sinus tachycardia BPM: 109 NV Interval: 176 QRS Interval: 82 QT Interval: 328 Clinical impression: abnormal ECG and sinus tachycardia SUKI Valera, WAREHOUSING TECHNICIAN-BC, ENP-C Emergency Department Nurse Practitioner [facility] Emergency Department (Please note that portions of [...] Ctiy medic 29 documented in this encounter [facility] 03-24-2024 Telephone encounter Note Pt called - Jean is out of Percocet. Pharmacy changed [facility] on refill request. Pt asked to let you know she is seeing recreation specialist on Thursday for possible surgery. [facility] 03-24-2024 Miscellaneous Notes Pt called - Jean is out of Percocet. Pharmacy [facility] on refill request. Pt asked to let you know she is seeing recreation specialist on Thursday for possible surgery. documented in this encounter [facility] 03-22-2024 Note [facility] [address] [place] [address] Subjective Patient ID: Addie Jean Baptiste is [...] daily . 90 tablet 1 Dexcom G6 Hide Buyer Misc Use as directed for continuous glucose monitoring . 1 each 0 Dexcom G6 Sensor Simran Use as directed for continuous glucose monitoring change every 10 days . 3 each 11 Dexcom G6 Transmitter Simran Use as directed for continuous glucose monitoring change every 3 months . 1 each 3 glucagon (Gv (more content not included)... [facility] 03-22-2024 History of Present illness Narrative [facility] [address] [place] [id number] Subjective Patient ID: Addie Jean Baptiste is [...] daily . 90 tablet 1 Dexcom G6 Hide Buyer Misc Use as directed for continuous glucose [...] . 90 tablet 1 miscellaneous medical supply [facility] 1 each by Miscellaneous route daily . [...] day . I am managing and treating [facility]'s complex chronic condition(s) serving as the focal [...] Stephany Pelayo PA-C documented in this encounter [facility] 03-08-2024 Telephone encounter Note Per med list, patient not taking Tizanadine. But she requested a refill. [facility] 03-08-2024 Miscellaneous Notes Per med list, patient not taking Tizanadine. But she requested a refill. documented in this encounter [facility] 03-01-2024 Note PROGRESS :This repor t has been cancelled. [facility] 02-11-2024 Note [facility] [place] [address] Patient: Addie Jean Baptiste is a 48 y.o. female. Chief Complaint Patient presents with Follow-up Check b12 level, supplies for toe Heartburn worse-can we increase med dose HPI: Patient in seen and examined in the office for her routine 3-month followup. Patient was discharged from [facility] on January 17 and subsequently saw Rafaela [...] machine and supplies to be sent to [employer]. Patient states she continues to have issues [...] for pain management and follows with Dr. Sanchez for her history of bipolar disorder. Given [...] daily . 30 tablet 2 Dexcom G6 Hide Buyer Misc Use as directed for continuous glucose [...] (SYNTHROID, LEVOTHROID) 75 (more content not included)... [facility] 02-08-2024 Telephone encounter Note Patient [...] mg total) by mouth daily. 10/07/23 Pharmacy: [facility] pharmacy Patient last seen: 10/07/23 Patient next scheduled appt: 03/01/24 [facility] 02-08-2024 Miscellaneous Notes Patient asking for [...] mg total) by mouth daily. 10/07/23 Pharmacy: [facility] pharmacy Patient last seen: 10/07/23 Patient next scheduled appt: 03/01/24 documented in this encounter [facility] 02-03-2024 Telephone encounter Note PA requires tablets please double check the rx I sent you please. [facility] 02-03-2024 Miscellaneous Notes PA requires tablets please double check the rx I sent you please. Rcvd call from pharmacist at [facility]. RX states to take 1 capsule 2 times a day as needed, then it says 2 tabs p.o. nightly. Qty 60. Please correct and resend. documented in this encounter [facility] 02-03-2024 Telephone encounter Note Rcvd call from pharmacist at [facility]. RX states to take 1 capsule 2 times a day as needed, then it says 2 tabs p.o. nightly. Qty 60. Please correct and resend. [facility] 02-02-2024 Instructions Jim Velez DO - [...] p.o. nightly only documented in this encounter [facility] 02-02-2024 Note [facility] Interventional Pain Management Office [...] - She mentions a previous hospitalization at [facility], where a foot amputation was considered [...] and L5-S1. OARRS/NARxCheck: REVIEWED ON TODAY'S OV controlled substance agreement signed: 12/08/23 Date of [...] Pre-filled or refillabl (more content not included)... [facility] 02-02-2024 History of Present illness Narrative [facility] Interventional Pain Management Office [...] - She mentions a previous hospitalization at [facility], where a foot amputation was considered [...] and L5-S1. OARRS/NARxCheck: REVIEWED ON TODAY'S OV controlled substance agreement signed: 12/08/23 Date of [...] (1,000 mcg total) by mouth daily Reasons: [facility]. Dexcom G6 Hide Buyer Misc Use as directed for continuous glucose [...] OPIOIDS Jim Velez D.O. Interventional Pain Management [facility] documented in this encounter [facility] 01-27-2024 Note HPI Addie Jean Baptiste is a 48 y.o. female Chief Complaint Patient presents with Follow-up Hosp follow up-left big toe Addie Jean Baptiste presents for hospital follow-up. She was seen at [facility] on 01/12/24 - 01/18/24 with L diabetic [...] She has not been to pharmacy to brick picker her antibiotic. Reports she is in [...] bandage - WBS: heel weight bearing with bridgett shoe - XR : reviewed. CT reviewed, [...] use of insulin (HCC) Bipolar 1 disorder ([facility]) Seizures ([facility]) Chronic chest pain GERD (gastroesophageal reflux disease) Hypothyroidism Diabetic peripheral neuropathy ([facility]) Insomnia Generalized weakness Diabetic ulcer of right foot associated with type 2 diabetes mellitus ([facility]) Muscle spasms of both lower extremities Bowel incontinence Vitamin B12 deficiency Vitamin D deficiency Cigarette nicotine dependence COPD (chronic obstructive pulmonary disease) ([facility]) Left-sided weakness History of stroke Visual loss, left eye Weight gain Family history of pulmonary fibrosis Family history of dementia Urinary incontinence Chronic headaches Hypercholesterolemia CKD (chronic kidney disease) Retinal hemorrhage Diabetic ulcer of left great toe ([facility]) Current Outpatient Medications: albuterol (PROVENTIL) 2.5 mg [...] (1,000 mcg total) by mouth daily Reasons: [facility]., Disp: 90 tablet, Rfl: 1 Dexcom G6 Hide Buyer [facility], Use as directed for continuous glucose monitoring ., Disp: 1 each, Rfl: 0 Dexcom G6 Sensor Simran, Use as direct (more content not included)... [facility] 01-27-2024 History of Present illness Narrative MELVIN Jean Baptiste is a 48 y.o. female Chief Complaint Patient presents with Follow-up Hosp follow up-left big toe Addie Jean Baptiste presents for hospital follow-up. She was seen at [facility] on 01/12/24 - 01/18/24 with L diabetic [...] She has not been to pharmacy to brick picker her antibiotic. Reports she is in [...] bandage - WBS: heel weight bearing with bridgett shoe - XR : reviewed. CT reviewed, [...] use of insulin (HCC) Bipolar 1 disorder ([facility]) Seizures ([facility]) Chronic chest pain GERD (gastroesophageal reflux disease) Hypothyroidism Diabetic peripheral neuropathy ([facility]) Insomnia Generalized weakness Diabetic ulcer of right [...] hemorrhage Diabetic ulcer of left great toe ([facility]) Current Outpatient Medications: albuterol (PROVENTIL) 2.5 mg [...] (1,000 mcg total) by mouth daily Reasons: [facility]., Disp: 90 tablet, Rfl: 1 Dexcom G6 Hide Buyer [facility], Use as directed for continuous glucose monitoring [...] smoking as needed, last use thursday Social Determinants of Health Financial Resource Strain: [...] this upon discharge, missed last day to brick picker from pharmacy Medications refilled as needed [...] to the patient. documented in this encounter [facility] 01-18-2024 History of Present illness Narrative AVS reviewed with patient. All requested supplies given to patient. Education on wound care provided to patient. Patient escorted to sister's car via wheelchair. All questions answered at this time. Barriers to finding accepting [facility] agency: pt's home location (not many [facility] agencies in area), insurance not widely accepted [facility] agency: Accepted or Pending Name of agency: Accepted [facility] Referrals sent to: (names of agencies) Declined: [facility] - [facility] - [facility] - [facility] [place] - [facility] [place] - [facility] - [facility] - staffing [facility] - no PT/OT [facility] Please be aware [facility] agencies have up to 24hours to respond. Many [facility] agencies closed on weekends, may take until Thursday to receive responses. [facility] created for the following services: yes - SN/PT/OT Verify the demographics (residential address) [address] [place], [place] [address] What is the primary number to reach you? [phone] Who is your family physician/primary care physician? Stephany Pelayo PA-C [phone] Following physician will be: (list first name/last [...] Jean Baptiste Admit Date: [id number] MR #: [id number] : 1975 Perpetual Assessment: Addie Jean Baptiste [...] II/IIIa: Pt dos not follow with a mix mill tender in the OP setting. Risk factors for [...] created by dictation via voice recognition software ([employer]). The completed note was reviewed for accuracy. [...] 3:55 PM EDT I personally performed a aike-pt-tniw encounter and discussed in detail with the [...] created by dictation via voice recognition software (BuyNow WorldWide). The completed note was reviewed for accuracy. [...] Stability: Added to AVS, Other (CHW referral) [facility] PROGRESS NOTE Assessment and Plan Addie Jean Baptiste is a 48 y.o. female patient of Stephany Pelayo PA-C with history of T2DM, HTN, bipolar disorder, and chronic back pain presented to [facility] on 01/12/2024 with left toe wound. Left [...] modifications Quality & Disposition DVT ppx: None Luque: N Status: Full Code Discharge location: KUNAL: [...] from last 7 days Lab Units 01/17/2445301/16/24 0354 01/15/24 0528 WBC K/mcL 7.74 8.82 7.12 HGB g/dL 9.3* 9.4* 9.9* PLT K/mcL 259 285 266 Results from [...] from last 7 days Lab Units 01/17/2445301/16/24 0354 01/15/24 0528 ALBUMIN g/dL 3.2 3.3 3.4 Home [...] (1,000 mcg total) by mouth daily Reasons: [facility]. Dexcom G6 Hide Buyer Misc Use as directed for continuous glucose [...] 100 mL/hr (01/14/24 1256) subcutaneous insulin pump [facility] PROGRESS NOTE Assessment and Plan Addie Jean Baptiste is a 48 y.o. female patient of Stephany Pelayo PA-C with history of T2DM, HTN, bipolar disorder, and chronic back pain presented to [facility] on 01/12/2024 with left toe wound. Left [...] modifications Quality & Disposition DVT ppx: None Luque: N Status: Full Code Discharge location: KUNAL: [...] at 01/16/2024 0804 Last data filed at 01/15/2024 204 Gross per 24 hour Intake 240 ml [...] (1,000 mcg total) by mouth daily Reasons: [facility]. Dexcom G6 Hide Buyer [facility] Use as directed for continuous glucose monitoring [...] Visit With Patient;Healthcare Provider Visit By Staff Data Collection Associate Visit Progression Attempt Visit Requested By Data Collection Associate Initiated Visit Source Data Collection Associate Initiated Visit Type Inpatient;Rounding Visit Circumstances and Events Routine Visit Visit Length (minutes) 5 Patient's Response to Pastoral Care Timing of Visit Not Optimal. Visit Rescheduled (Patient care needed) Visit Planning PRN Spiritual Assessment Unable to Assess during this visit Christianity Assessment Unable to Assess during this visit Family assessment provided? Unable to asess during this visit Rev. Addie Bland MDiv. Staff Data Collection Associate [facility] Contact Care Management Progress Note Date: 01/15/2024 Time: 4:21 PM Patient Name: Addie Jean Baptiste Date of : 1975 Discharge Plan: Plan A: Home Health Care Services Plan B: Home Health Care Services Discharging Transportation Plan: Discharge Plan Status: Met with pt and her family, confirmed discharge plan. Informed pt that home health is arranged, start of care will be on Thursday, she is agreeable to this. She denies [...] Stability: Added to AVS, Other (CHW referral) [facility] PRO[facility]ESS NOTE Assessment and Plan Addie Jean Baptiste is a 48 y.o. female patient of Stephany Pelayo PA-C with history of T2DM, HTN, bipolar disorder, and chronic back pain presented to [facility] on 01/12/2024 with left toe wound. Left [...] SSI. Hypoglycemic protocol. Seizure disorder Continue home yahairapp Obesity Body mass index is 45.73 kg/m . Discussed dietary and lifestyle modifications Quality & Disposition DVT ppx: None Luque: N Status: Full Code Discharge location: KUNAL: [...] (1,000 mcg total) by mouth daily Reasons: [facility]. Dexcom G6 Hide Buyer Misc Use as directed for continuous glucose [...] Other (CHW referral) Barriers to finding accepting [facility] agency: pt's home location (not many [facility] agencies in area), insurance not widely accepted HH agency: Accepted or Pending Name of agency: Accepted but cannot open for SOC until 01/18 [facility] Referrals sent to: (names of agencies) Declined: [facility] [place] - [facility] [place] - [place] [facility]- [facility] - staffing [facility]- no pt/ot [facility] Please be aware [facility] agencies have up to 24hours to respond. Many [facility] agencies closed on weekends, may take until Thursday to receive responses. [facility] created for the following services: yes - SN/PT/OT Verify the demographics (residential address) [address] [place] [address] What is the primary number to reach you? [phone] Who is your family physician/primary care physician? Stephany Pelayo PA-C [phone] Do you have a caregiver and/or teachable caregiver (list relationship, name & phone #)? lives with family Estimated Discharge Date (KUNAL): 01/14 If discharge needs change, please reach out to Hub Liaison assigned on treatment team as hub is not notified of additional consults to [facility] once team is following. [facility] INPATIENT PROGRESS NOTE ASSESSMENT AND PLAN: Diabetes [...] bandage - WBS: heel weight bearing with bridgett shoe - XR : reviewed. CT reviewed, [...] % -- -- 6.5 Invalid input(s): LABALBU [facility] PRO[facility]ESS NOTE Assessment and Plan Addie Jean Baptiste is a 48 y.o. female patient of Stephany Pelayo PA-C with history of T2DM, HTN, bipolar disorder, and chronic back pain presented to [facility] on 01/12/2024 with left toe wound. Left [...] modifications Quality & Disposition DVT ppx: None Luque: N Status: Full Code Discharge location: KUNAL: [...] (1,000 mcg total) by mouth daily Reasons: [facility]. Dexcom G6 Hide Buyer Misc Use as directed for continuous glucose [...] More referrals sent. Barriers to finding accepting [facility] agency: pt's home location (not many [facility] agencies in area), insurance not widely accepted [facility] agency: Accepted or Pending Name of agency: PENDING [facility] - call ringing and then not going through [facility] [address] Accepted but cannot open for SOC until 01/18 [facility] Referrals sent to: (names of agencies) Declined: [facility] - [facility] - [facility] [place] - [facility] - staffing Please be aware [facility] agencies have up to 24hours to respond. Many [facility] agencies closed on weekends, may take until Thursday to receive responses. [facility] created for the following services: yes - SN/PT/OT Verify the demographics (residential address) [address] [place] [address] What is the primary number to reach you? [phone] Who is your family physician/primary care physician? Stephany Pelayo PA-C [phone] Following physician will be: (list first name/last name) Do you have a caregiver and/or teachable caregiver (list relationship, name & phone #)? lives with family Estimated Discharge Date (KUNAL): 01/14 If discharge needs change, please reach out to Hub Liaison assigned on treatment team as hub is not notified of additional consults to [facility] once team is following. Thank you. 01/13/241820 Provider Notification Reason for Communication Change in status Provider Name Judy Provider Role Hospitalist Notification Method Call Response En route Notification Time 182 [facility] PRO[facility]ESS [facility] Assessment and Plan Addie Jean Baptiste is a 48 y.o. female patient of Stephany Pelayo PA-C with history of T2DM, HTN, bipolar disorder, and chronic back pain presented to [facility] on 01/12/2024 with left toe wound. Left [...] modifications Quality & Disposition DVT ppx: None Luque: N Status: Full Code Discharge location: KUNAL: [...] (1,000 mcg total) by mouth daily Reasons: [facility]. Dexcom G6 Hide Buyer Misc Use as directed for continuous glucose [...] not been spiked, are well within the substance abuse rn expiration date and have been stored at room temperature (<28 days). Continue with insulin regimen as written. Please call pharmacy with any questions. Pharmacist: Yolie Knott RPh,PharmD Date: 01/12/2024 Contact Information: [phone] documented in this encounter [facility] 01-18-2024 Hospital course Narrative Images from the original note were not included. [facility] DISCHARGE SUMMARY Addie Jean Baptiste Admitted: 01/12/2024 Discharge Date: 01/18/24 PCP Handoff Recommended Outpatient Testing None Results Pending At Discharge None Clinical Summary Addie Jean Baptiste is a 48 y.o. female patient of Stephany Pelayo PA-C with history of T2DM, HTN, bipolar disorder, and chronic back pain presented to [facility] on 01/12/2024 with left toe wound. Assessment [...] (1,000 mcg total) by mouth daily Reasons: [facility]. Quantity: 90 tablet Dexcom G6 Hide Buyer [facility] Generic drug: blood-glucose meter,continuous Use as directed [...] ZANAFLEX Physician(s) Follow Up: Stephany Pelayo PA-C [facility] [address] [address] Follow up [facility] Address: [address] [place] [address] Servicing Counties: [facility] [phone] Shameka Castillo DPM [address] [facility] [address] Schedule an appointment as soon as [...] 01/18/24, 11:00 AM documented in this encounter [facility] 01-18-2024 Hospital Discharge instructions Pippa Quiles RN - 01/18/2024 10:12 AM EDT Haven Pope RN - 01/13/2024 2:31 [place] [address] Call [phone] ext. [phone] for more information -Summer Reading Program provides an individualized reading program during the summer months. -The [facility] Rx Program is a unique collaborative program in [facility]. The program assists [place] residents to obtain prescriptions in an affordable manner for immediate and ongoing needs. -The Volunteer Income Tax Assistance (KASSY) is a free tax preparation service for low to moderate-income individuals and families. Federal and State tax returns can be completed and electronically filed. -The Emergency Food and Nursing Home Program (EFSP) is funded by the Department of [employer] [employer] to assist with emergency food and fci programs. Further information can be obtained by -The Rapid Rehousing and Homeless Prevention Programs are here to help those struggling with homelessness or who are in danger of becoming homeless. -The Payee Program assists individuals with managing their Social Security, [employer], or VA benefits. This program provides free payee services to individuals. Please note, we do not take on guardianship of the individual. -The Emergency Senior Funding is a melly from the [facility] [place] on Aging to assist those 60 and over with needs that are not met by other services in [place]. The funds are meant to help with [...] Everywhere.Caregiving: Foot and Toenail Care: General Info (Sierra Leonean)Chronic Wound: Healing: General Info ([place]an)documented in this encounter [facility] 01-17-2024 Note [facility] Note [facility] 01-16-2024 Consult note Associated Order (s): IP CONSULT TO NEPHROLOGY NEPHROLOGY CONSULTATION [facility] Patient Name: Addie Jean Baptiste MR #: [id number] : 1975 Requesting physician: Hospitalist Reason for [...] II/IIIa: Pt dos not follow with a mix mill tender in the OP setting. Risk factors for [...] bipolar disorder, back pain who presented to [facility] with left toe wound. Per documentation, patient [...] (1,000 mcg total) by mouth daily Reasons: [facility]. Dexcom G6 Hide Buyer Misc Use as directed for continuous glucose [...] 01/16/2024 1055 Last data filed at 01/15/2024 204 Gross per 24 hour Intake 240 ml [...] Neuro: Drowsy Psych: Normal affect. : [] Luque present [x] Luque not present Results/Medications Reviewed: 01/16/24 10:55 AM: [...] I have reviewed Progress Notes in the [facility] EHR and CareEverywhere. [x] I have interpreted/reviewed lab tests and radiography data in the [facility] EHR. [x] I have discussed the case with the primary service. [x] I have ordered appropriate tests/labs Comments: Thank you for allowing us to participate in the care of this patient. We will continue to follow. Please call if questions or concerns arise. Potential limitations of the note: Parts of this note were created by dictation via voice recognition software (BuyNow WorldWide). The completed note was reviewed for accuracy. [...] 4:07 PM EDT I personally performed a vcnr-yj-ckhb encounter and discussed in detail with the [...] has acute kidney injury. She had previous OSLO episodes that resolved. She likely has underlying [...] created by dictation via voice recognition software (BuyNow WorldWide). The completed note was reviewed for accuracy. However, there may be subtle errors that were not found during the review. If such errors are discovered, or if there are any questions or concerns regarding the recommendations/plan of care, please contact the author of the note prior to undertaking the recommendations/plan of care. [facility] 01-16-2024 Consult note Associated Order (s): IP CONSULT TO NEPHROLOGY NEPHROLOGY CONSULTATION [facility] Patient Name: Addie Jean Baptiste MR #: [id number] : 1975 Requesting physician: Hospitalist Reason for [...] or remainder of the foot. -Per podiatry, kathie Fernández on discharge. 3. ?CKD stage II/IIIa: Pt dos not follow with a mix mill tender in the OP setting. Risk factors for [...] bipolar disorder, back pain who presented to [facility] with left toe wound. Per documentation, patient [...] (1,000 mcg total) by mouth daily Reasons: [facility]. Dexcom G6 Hide Buyer Misc Use as directed for continuous glucose [...] Oral Nightly busPIRone 30 mg Oral Q12H SAEMER citalopram 20 mg Oral Daily doxycycline 100 [...] Neuro: Drowsy Psych: Normal affect. : [] Luque present [x] Luque not present Results/Medications Reviewed: 01/16/24 10:55 AM: [...] I have reviewed Progress Notes in the [facility] EHR and CareEverywhere. [x] I have interpreted/reviewed lab tests and radiography data in the [facility] EHR. [x] I have discussed the case with the primary service. [x] I have ordered appropriate tests/labs Comments: Thank you for allowing us to participate in the care of this patient. We will continue to follow. Please call if questions or concerns arise. Potential limitations of the note: Parts of this note were created by dictation via voice recognition software (BuyNow WorldWide). The completed note was reviewed for accuracy. [...] 4:07 PM EDT I personally performed a hjig-hm-lgcy encounter and discussed in detail with the [...] from last 7 days Lab Units 01/16/24 03501/15/24 0528 01/14/24 0541 WBC K/mcL 8.82 7.12 7.49 HGB g/dL 9.4* 9.9* 9.7* HCT % 30.1* 31.2* 29.6* PLT K/mcL 285 266 264 Results from last 7 days Lab Units 01/16/24 03501/15/24 0528 01/14/24 0541 SODIUM mmol/L 143 143 [...] created by dictation via voice recognition software (BuyNow WorldWide). The completed note was reviewed for accuracy. [...] Assessment Limitations Including: Pain, Mechanical Barriers Are cabinet installer Therapy Services Needed After Discharge: Yes Intensity of cabinet installer Therapy: 2-3 days per week Anticipated Duration of cabinet installer Therapy: Duration 10 - 30 days PT [...] Precautions Orthotic Devices: Yes Lower Extremity: Left ([place] shoe on) Weight Bearing Status: X LLE: Partial Wt bearing (Heel WB) General Rehab Precautions: Fall risk Balance Assessment Sitting Balance - Static: Independent Sitting Balance - Dynamic: Independent Standing Balance - Static: Minimal assist Inclusion Special Educator - Standing Static: BUE Standing Balance - Dynamic: Minimal assist, 2 person Inclusion Special Educator - Standing Dynamic: same physical therapist aide used for static standing tasks Bed Mobility Supine to Sit: (NT- Patient was up in chair before and After PT eval) Transfers Sit to Stand: Contact guard assist Bed to Chair: Contact guard assist Inclusion Special Educator: BUE (Patient uses cane, but reports that [...] Function Receives Help From: Family Level of Garrett - Transfers/Ambulation/Mobility: Independent with functional transfers, Independent with household ambulation Level of Garrett - ADLs: Needs assistance Level of Garrett - Homemaking: Independent Past Medical History: Diagnosis [...] motivation. The patient's home setup is a energy conservation technician, family / caregiver support is a energy conservation technician for return to prior level of function. The patient's education level is a energy conservation technician, compliance is a energy conservation technician to return to prior level of function. [...] Precautions Orthotic Devices: Yes Lower Extremity: Left ([place] Shoe) Weight Bearing Status: X LLE: Partial [...] assist Supine to Sit: Contact guard assist Inclusion Special Educator: bedrails Functional Transfers Sit to Stand: Contact guard assist Bed to Chair Transfers: Contact guard assist Stand Pivot Transfers: Contact guard assist Inclusion Special Educator: (gait belt, shoe, sock) Additional Assessment Details [...] Function Receives Help From: Family Level of Garrett - Transfers/Ambulation/Mobility: Independent with functional transfers Level of Garrett - ADLs: Needs assistance Level of Garrett - Homemaking: Independent Past Medical History: Diagnosis [...] received a [facility] consult for [facility] needs. Patient's agency choice is no preference (would prefer not [facility]) Barriers to finding accepting [facility] agency: pt's home location (not many [facility] agencies in area), insurance not widely accepted [facility] agency: Accepted or Pending Name of agency: PENDING [facility] Referrals sent to: (names of agencies) Declined: [facility] [place] [facility] [place] Please be aware [facility] agencies have up to 24hours to respond. Many [facility] agencies closed on weekends, may take until Thursday to receive responses. [facility] created for the following services: yes - SN/PT/OT Verify the demographics (residential address) [address] [place] [address] What is the primary number to reach you? [phone] Who is your family physician/primary care physician? Stephany Pelayo PA-C [phone] Following physician will be: (list first name/last name) Do you have a caregiver and/or teachable caregiver (list relationship, name & phone #)? lives with family Estimated Discharge Date (KUNAL): 01/14 If discharge needs change, please reach out to [facility] Liaison assigned on treatment team as [facility] is not notified of additional consults to [facility] once team is following. Thank you. Associated [...] needs. Pt lives with her son and [id number], they provide support. She states that she [...] agency but does not wish to have [facility]. Referral to [facility] entered. Plan A: Pt will return home [...] bandage - WBS: heel weight bearing with bridgett shoe - XR : reviewed. CT ordered, [...] y.o. YEAR OLD female WAS ADMITTED TO [facility] ON 01/12/2024 WITH Chief Complaint Patient presents [...] tablet 30 mg 30 mg Oral Q12H [facility] Mk Leigh MD 30 mg at 01/12/24 2218 chlorthalidone (HYGROTON) tablet 25 mg 25 mg Oral Daily Mk Leigh MD citalopram (CELEXA) tablet 20 mg 20 mg Oral Daily Mk Leigh MD divalproex (DEPAKOTE) delayed release (DR) tablet 500 mg 500 mg Oral Q12H [facility] Mk Leigh MD hydrOXYzine (ATARAX) tablet 50 mg 50 mg Oral TID PRN Mk Leigh MD melatonin Tab 5 mg 5 mg Oral Nightly PRN Enrique Lainez PA-C naloxone (NARCAN) injection 0.1 mg 0.1 mg Intravenous PRN Enrique Lainez PA-C And naloxone (NARCAN) injection 0.4 mg 0.4 mg Intravenous PRN Enrique Lainez PA-C ondansetron (ZOFRAN-ODT) disintegrating tablet 4 mg 4 mg Oral Q6H PRN Enrique Lainez PA-C Or ondansetron (ZOFRAN) injection 4 mg 4 mg Intravenous Q6H PRN Enrique Lainez PA-C oxyCODONE-acetaminophen (PERCOCET) 5-325 mg per tablet 1 tablet 1 tablet Oral Q6H PRN Enrique Lainez PA-C piperacillin-tazobactam (ZOSYN) IVPB 3.375 g (premix) 3.375 g Intravenous Q8H Enrique Lainez PA-C 12.5 mL/hr at 01/13/24 0450 3.375 g at 01/13/24 0450 pregabalin (LYRICA) capsule 150 mg 150 mg Oral Nightly Mk Leigh MD 150 mg at 01/12/24 2218 QUEtiapine (SEROQUEL) tablet 800 mg 800 mg Oral Nightly Mk Leigh MD 800 mg at 01/12/24 2218 senna (SENOKOT) tablet 8.6 mg 1 tablet Oral BID PRN Enrique Lainez PA-C sodium chloride (PF) (NS) flush 5 mL 5 mL Intravenous PRN Enrique Lainez PA-C And sodium chloride (PF) (NS) flush 5 mL 5 mL Intravenous Q8H SAMEER Enrique Lainez PA-C And sodium chloride 0.9% (NS) 0-150 mL/hr Intravenous PRN Enrique Lainez PA-C sodium chloride 0.9% (NS) 100 mL/hr Intravenous Continuous Matheus Chavira PA-C 100 mL/hr at 01/12/24 1841 100 mL/hr at 01/12/24 1841 subcutaneous insulin pump Misc Miscellaneous Continuous Mk Leigh MD 2 Units/hr at 01/12/24 2215 tiZANidine (ZANAFLEX) tablet 8 mg 8 mg Oral Nightly Mk Leigh MD 8 mg at 01/12/248 traZODone (DESYREL) tablet 50 mg 50 mg Oral Nightly PRN Enrique Lainez PA-C Medications Prior to Admission Medication [...] (1,000 mcg total) by mouth daily Reasons: [facility]. 90 tablet 1 Dexcom G6 Hide Buyer Misc Use as directed for continuous glucose [...] Shameka Castillo DPM documented in this encounter [facility] 01-16-2024 Note [facility] 01-15-2024 Note Formatting of this [...] Absence of physical injury Outcome: Partially Met [facility] 01-15-2024 Miscellaneous Notes Problem: Actual or [...] Outcome: Partially Met documented in this encounter [facility] 01-15-2024 Note [facility] 01-14-2024 Note [facility] 01-14-2024 Note [facility] 01-14-2024 Consult note Formatting of th is note is different from the original. Physical Therapy PHYSICAL THERAPY EVALUATION Skilled Therapy Needs After Discharge Anticipate Resolution of Current Assessment Limitations Including: Pain, Mechanical Barriers Are cabinet installer Therapy Services Needed After Discharge: Yes Intensity of cabinet installer Therapy: 2-3 days per week Anticipated Duration of cabinet installer Therapy: Duration 10 - 30 days PT [...] Precautions Orthotic Devices: Yes Lower Extremity: Left ([place] shoe on) Weight Bearing Status: X LLE: Partial Wt bearing (Heel WB) General Rehab Precautions: Fall risk Balance Assessment Sitting Balance - Static: Independent Sitting Balance - Dynamic: Independent Standing Balance - Static: Minimal assist Inclusion Special Educator - Standing Static: BUE Standing Balance - Dynamic: Minimal assist, 2 person Inclusion Special Educator - Standing Dynamic: same physical therapist aide used for static standing tasks Bed Mobility Supine to Sit: (NT- Patient was up in chair before and After PT eval) Transfers Sit to Stand: Contact guard assist Bed to Chair: Contact guard assist Inclusion Special Educator: BUE (Patient uses cane, but reports that [...] Function Receives Help From: Family Level of Garrett - Transfers/Ambulation/Mobility: Independent with functional transfers, Independent with household ambulation Level of Garrett - ADLs: Needs assistance Level of Garrett - Homemaking: Independent Past Medical History: Diagnosis [...] hospital or completion of Physical Therapy Plan. [facility] 01-14-2024 Consult note Formatting of th [...] motivation. The patient's home setup is a energy conservation technician, family / caregiver support is a energy conservation technician for return to prior level of function. The patient's education level is a energy conservation technician, compliance is a energy conservation technician to return to prior level of function. [...] Precautions Orthotic Devices: Yes Lower Extremity: Left ([place] Shoe) Weight Bearing Status: X LLE: Partial [...] assist Supine to Sit: Contact guard assist Inclusion Special Educator: bedrails Functional Transfers Sit to Stand: Contact guard assist Bed to Chair Transfers: Contact guard assist Stand Pivot Transfers: Contact guard assist Inclusion Special Educator: (gait belt, shoe, sock) Additional Assessment Details [...] Function Receives Help From: Family Level of Garrett - Transfers/Ambulation/Mobility: Independent with functional transfers Level of Garrett - ADLs: Needs assistance Level of Garrett - Homemaking: Independent Past Medical History: Diagnosis [...] completion of Occupational Therapy Plan of Care. [facility] 01-13-2024 Note Formatting of this n ote might be different from the original. I performed a substantive part of the MDM during the patient's E/M visit. I personally made or approved the documented management plan and acknowledge its risk of complications Management/test interpretation discussed with midlevel provider. [facility] Work Phone: 01-13-2024 Consult note Associated Order (s): IP CONSULT TO HOME HEALTH HUB 01/13/24 2:37 PM - Liaison received a Home Health Hub consult for [facility] needs. Patient's agency choice is no preference (would prefer not [place]) Barriers to finding accepting [facility] agency: pt's home location (not many C agencies in area), insurance not widely accepted HHC agency: Accepted or Pending Name of agency: PENDING [facility] Matters Referrals sent to: (names of agencies) Declined: [facility] - [facility] Please be aware [facility] agencies have up to 24hours to respond. Many [facility] agencies closed on weekends, may take until Thursday to receive responses. [facility] created for the following services: yes - SN/PT/OT Verify the demographics (residential address) [address] [address] What is the primary number to reach you? [phone] Who is your family physician/primary care physician? Stephany Pelayo PA-C [phone] Following physician will be: (list first name/last name) Do you have a caregiver and/or teachable caregiver (list relationship, name & phone #)? lives with family Estimated Discharge Date (KUNAL): 01/14 If discharge needs change, please reach out to [facility] Liaison assigned on treatment team as hub is not notified of additional consults to [facility] once team is following. Thank you. [facility] 01-13-2024 Consult note Associated Order (s): [...] needs. Pt lives with her son and [id number], they provide support. She states that she [...] agency but does not wish to have [facility]. Referral to Hub entered. Plan A: Pt will return home with her family, home health services to be arranged. Plan B: Will follow pt for any additional needs. Assessment and Background Information: Living Arrangements: Family members Support Systems: Family members Assistance Needed: n/a Type of Residence: Private residence Prior to Admission Home Care Services: No Current Home Equipment: (Electric scooter) [facility] 01-13-2024 Note Formatting of this n ote might be different from the original. PHYSICAL THERAPY VISIT VARIANCE NOTE Attempted to see patient at this time, but unable secondary to: Patient Unavailable (comment) (currently BHAVNA for CAT scan). Will follow up as appropriate. [facility] 01-13-2024 Note Formatting of this n ote might be different from the original. Patient has an ICD that is MRI compatible but she does not follow up with anyone for her device check. We do not have anyone to send MRI cardiology order form. [facility] 01-13-2024 Note Formatting of this n [...] level of psychosocial functioning Outcome: Partially Met T [facility] 01-13-2024 Note [facility] 01-13-2024 Consult note Associated Order [...] wound bed and gema wound is red. [facility] 01-13-2024 Consult note Associated Order (s): [...] bandage - WBS: heel weight bearing with bridgett shoe - XR : reviewed. CT ordered, [...] y.o. YEAR OLD female WAS ADMITTED TO [facility] ON 01/12/2024 WITH Chief Complaint Patient presents [...] tablet 30 mg 30 mg Oral Q12H [facility] Mk Leigh MD 30 mg at 01/12/24 2218 chlorthalidone (HYGROTON) tablet 25 mg 25 mg Oral Daily Mk Legih MD citalopram (CELEXA) tablet 20 mg 20 mg Oral Daily Mk Liegh MD divalproex (DEPAKOTE) delayed release (DR) tablet 500 mg 500 mg Oral Q12H [facility] Mk Leigh MD hydrOXYzine (ATARAX) tablet 50 mg 50 mg Oral TID PRN Mk Leigh MD melatonin Tab 5 mg 5 mg Oral Nightly PRN Enrique Lainez PA-C naloxone (NARCAN) injection 0.1 mg 0.1 mg Intravenous PRN Enrique Lainez PA-C And naloxone (NARCAN) injection 0.4 mg 0.4 mg Intravenous PRN Enrique Lainez PA-C ondansetron (ZOFRAN-ODT) disintegrating tablet 4 mg 4 mg Oral Q6H PRN Enrique Lainez PA-C Or ondansetron (ZOFRAN) injection 4 mg 4 mg Intravenous Q6H PRN Enrique Lainez PA-C oxyCODONE-acetaminophen (PERCOCET) 5-325 mg per tablet 1 tablet 1 tablet Oral Q6H PRN Enrique Lainez PA-C piperacillin-tazobactam (ZOSYN) IVPB 3.375 g (premix) 3.375 g Intravenous Q8H Enrique Lainez PA-C 12.5 mL/hr at 01/13/24 0450 3.375 g at 01/13/24 0450 pregabalin (LYRICA) capsule 150 mg 150 mg Oral Nightly Mk Leigh MD 150 mg at 01/12/24 2218 QUEtiapine (SEROQUEL) tablet 800 mg 800 mg Oral Nightly Mk Leigh MD 800 mg at 01/12/24 2218 senna (SENOKOT) tablet 8.6 mg 1 tablet Oral BID PRN Enrique Lainez PA-C sodium chloride (PF) (NS) flush 5 mL 5 mL Intravenous PRN Enrique Lainez PA-C And sodium chloride (PF) (NS) flush 5 mL 5 mL Intravenous Q8H SAMEER Enrique Lainez PA-C And sodium chloride 0.9% (NS) 0-150 mL/hr Intravenous PRN Enrique Lainez PA-C sodium chloride 0.9% (NS) 100 [...] 50 mg 50 mg Oral Nightly PRN Enrique Lainez PA-C Medications Prior to Admission Medication [...] (1,000 mcg total) by mouth daily Reasons: [facility]. 90 tablet 1 Dexcom G6 Hide Buyer Misc Use as directed for continuous glucose [...] 12/24/23. 30 tablet 0 Shameka Castillo DPM [facility] 01-12-2024 History and physical note [facility] -- [facility] Patient Name: Addie Jean Baptiste : 1975 MR #: [id number] Admit Date: 01/12/2024 Physicians: Stephany Pelayo PA-C (Family); No ref. provider found (Referring) Addie Jean Baptiste is a 48 y.o. female patient of Stephany Pelayo PA-C with history of T2DM, HTN, bipolar disorder, and chronic back pain presented to [facility] on 01/12/2024 with left toe wound. Left [...] Measures DVT Prophylaxis: SCDs and ambulation only Luque Catheter: absent Medication Reconciliation: Verified Admitted with [...] disorder, and chronic back pain presented to [facility] on 01/12/2024 with left toe wound. Pt [...] 2, diabetic peripheral neuropathy Seizure disorder Obesity [facility] 01-12-2024 History and physical note [facility] -- [facility] Patient Name: Addie Jean Baptiste : 1975 MR #: [id number] Admit Date: 01/12/2024 Physicians: Stephany Pelayo PA-C (Family); No ref. provider found (Referring) Addie Jean Baptiste is a 48 y.o. female patient of Stephany Pelayo PA-C with history of T2DM, HTN, bipolar disorder, and chronic back pain presented to [facility] on 01/12/2024 with left toe wound. Left [...] Measures DVT Prophylaxis: SCDs and ambulation only Luque Catheter: absent Medication Reconciliation: Verified Admitted with [...] disorder, and chronic back pain presented to [facility] on 01/12/2024 with left toe wound. Pt [...] Hennessy MD - 01/12/2024 6:33 PM EDT [facility] NOTE ADDENDUM I saw and examined the [...] Seizure disorder Obesity documented in this encounter [facility] 01-12-2024 Emergency department Note Hourly rounding completed. Patient updated on plan on care. Comfort measures offered, patient given water and a warm blanket. No other needs at this time. [facility] 01-12-2024 Emergency department Note Hourly rounding completed. Patient updated on plan on care. Comfort measures offered, patient given water and a warm blanket. No other needs at this time. ED PROVIDER NOTE [facility] EMERGENCY DEPARTMENT NAME: Addie Organ AGE: 48 y.o. : 1975 VISIT DATE: 01/12/2024 CSN: [id number] PCP: Stephany Pelayo PA-C Clinical Impression: 1. [...] and MRI. I discussed this case with [facility] and they are willing to admit patient. [...] precipitated this pain. 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 Dexcom G6 Hide Buyer Misc Use as directed for continuous glucose [...] PA-C 01/12/24 1702 Pt was brought in [facility] from [facility]. Pt was seeing primary doc and was referred to our ED for a Lt great toe inf. Pt had an ongoing toe inf-- last Thursday skin/toe nail came off tip of toe. No drainage/odor noted at this time. Bed: 02 Expected date: Expected time: Means of arrival: Comments: 28: 48F toe infection documented in this encounter [facility] 01-12-2024 Physician Emergency department Note ED PROVIDER NOTE [facility] EMERGENCY DEPARTMENT NAME: Addie Organ AGE: 48 y.o. : 1975 VISIT DATE: 01/12/2024 CSN: [id number] PCP: Stephany Pelayo PA-C Clinical Impression: 1. [...] and MRI. I discussed this case with [facility] and they are willing to admit patient. [...] precipitated this pain. 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 Dexcom G6 Hide Buyer Misc Use as directed for continuous glucose [...] BHARAT Austin Zachary Joel, PA-C 01/12/24 1702 [facility] 01-12-2024 Note [facility] INTERNAL MEDICINE [address] [place] [id number] Patient: Addie Jean Baptiste is a 48 [...] (1,000 mcg total) by mouth daily Reasons: [facility]. 90 tablet 1 Dexcom G6 Hide Buyer Misc Use as directed for continuous glucose [...] (50 mg total) (more content not included)... [facility] 01-12-2024 History of Present illness Narrative [facility] [address] [place] [address] Patient: Addie Jean Baptiste is a 48 [...] (1,000 mcg total) by mouth daily Reasons: [facility]. 90 tablet 1 Dexcom G6 Hide Buyer [facility] Use as directed for continuous glucose monitoring [...] (HCC) Note: This dictation was generated using [employer] voice recognition software. Please excuse any grammatical [...] Stephany Pelayo PA-C documented in this encounter [facility] 01-12-2024 Emergency department Note Pt was brought in [facility] from the [facility]. Pt was seeing primary doc and was referred to our ED for a Lt great toe inf. Pt had an ongoing toe inf-- last Thursday skin/toe nail came off tip of toe. No drainage/odor noted at this time. [facility] 01-12-2024 Emergency department Note Bed: 02 Expected date: Expected time: Means of arrival: Comments: 28: 48F toe infection [facility] 01-11-2024 Telephone encounter Note Last UDS 12/08/23 Last OV 12/08/23 Next OV 02/02/24 [facility] 01-11-2024 Miscellaneous Notes Last UDS 12/08/23 Last OV 12/08/23 Next OV 02/02/24 documented in this encounter [facility] 12-21-2023 Telephone encounter Note Pt states Percocet is helping a lot with pain. Requesting 30 day supply. [facility] 12-21-2023 Miscellaneous Notes Pt states Percocet is helping a lot with pain. Requesting 30 day supply. documented in this encounter [facility] 12-16-2023 Note UDS CONSISTENT AUTHENTICATED BY JIM VELEZ ON 12/16/2023 11:03:43 [facility] 12-14-2023 History of Present illness Narrative Ne supplies order faxed to [employer]. Confirmation received. documented in this encounter [facility] 12-10-2023 Note Addie Organ 48 y.o. [...] as well as wet wipes through to [employer] so I will see if I can order these. Patient wants to see Dr. Dominguez in [place] of Pulmonology for her family history of pulmonary fibrosis. We will plan to update the referral. Patient was seen in the [facility] ER on November 06 for left-sided visual loss and was ultimately referred to Ophthalmology. She was seen by [facility] towboat captain, Dr. London, on November 08 and suspected [...] as well as new nebulizer supplies through [employer]. 4. Family history of pulmonary fibrosis. Will update patient's pulmonology referral to reflect that she wants to see Dr. Dominguez in [place]. 5. 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 I am managing and [...] Chronic obstructive pulmonary disease, unspecified COPD type ([facility]) J44.9 496 albuterol 90 mcg/actuation inhaler Home [...] 3 mL (2.5 (more content not included)... [facility] 12-08-2023 Telephone encounter Note Refill DM medications. Dexcom downloaded for review and insulin RX needs completed [facility] 12-08-2023 Miscellaneous Notes Refill DM medications. Dexcom downloaded for review and insulin RX needs completed documented in this encounter [facility] 12-08-2023 Telephone encounter Note duplicate [facility] 12-08-2023 Miscellaneous Notes duplicate documented in this encounter [facility] 12-08-2023 Jim Berrios DO - 12/08/2023 [...] nightly only . documented in this encounter [facility] 12-08-2023 Note [facility] Interventional Pain Management Office Note Patient Name: Addie Jean Baptiste Referring Physician: Stephany Pelayo PA-C Date of : 1975 PCP: Stephany Pelayo PA-C Date of Service: 12/09/23 This is a 48 y.o. female who presents to [facility] for an initial consultation. After [...] smoking as n (more content not included)... [facility] 12-08-2023 History of Present illness Narrative [facility] Interventional Pain Management Office Note Patient Name: Addie Organ Referring Physician: Stephany Pelayo PA-C Date of : 1975 PCP: Stephany Pelayo PA-C Date of Service: 12/09/23 This is a 48 y.o. female who presents to [facility] for an initial consultation. After [...] (1,000 mcg total) by mouth daily Reasons: [facility]. Dexcom G6 Hide Buyer Misc Use as directed for continuous glucose [...] OPIOIDS Jim Velez D.O. Interventional Pain Management [facility] documented in this encounter [facility] 12-02-2023 Instructions Sahara Sanchez MD - 12/02/2023 3:18 PM EDT Thank you for choosing the [facility] Endocrinology. Please get labs on [...] if you are interested in seeing a lumber estimator/dietitian. Please call our office at [phone] or send a Nanoference message if you have any questions or [...] and bedtime CGM documented in this encounter [facility] 12-02-2023 Note [facility] END[facility]CRIN[facility] [address] [facility] [phone] Addie Organ is a 48 y.o. female being seen for Diabetes Mellitus PCP: Stephany Pelayo PA-C Referring Physician: Stephany Pelayo PA-C HPI: She is here for consultation regarding management of type 1 diabetes that was diagnosed at 23 years of age. Started on insulin in 2004, switch to OmniPod several years ago. Currently on OmniPod 5. She has relocated from [facility] to [place] in 2022, was following up with endocrinology while in [place]. She is in a wheelchair for today's visit, has difficulty walking due to diabetic neuropathy. Current Diabetic Regimen: Omnipod 5 with Zeinab 2 --unable to download OmniPod 5 as she did not bring her PDM, she is going to bring it on Thursday. 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 [facility] 12-02-2023 History of Present illness Narrative Images from the original note were not included. [facility] [address] [place] [address] Addie Jean Baptiste is a 48 y.o. female being seen for Diabetes Mellitus PCP: Stephany Pelayo PA-C Referring Physician: Stephany Pelayo PA-C HPI: She is here for consultation regarding management of type 1 diabetes that was diagnosed at 23 years of age. Started on insulin in 2004, switch to OmniPod several years ago. Currently on OmniPod 5. She has relocated from [facility] to [place] in 2022, was following up with endocrinology while in [place]. She is in a wheelchair for today's visit, has difficulty walking due to diabetic neuropathy. Current Diabetic Regimen: Omnipod 5 with Zeinab 2 --unable to download OmniPod 5 as she did not bring her PDM, she is going to bring it on Thursday. 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 90 tablet 1 ergocalciferol (Vitamin D2) 1,250 [...] needed . 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 [...] MD Note: This dictation was generated using [employer] voice recognition software. Please excuse any grammatical or spelling errors that may have occurred using the system. documented in this encounter [facility] 11-12-2023 Telephone encounter Note Patient also requested alcohol pads (not on med sheet, or previously discontinued) Citalopram is by another provider and was prescribed 5/15 for 30 days with 2 refills. [facility]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 total) by mouth daily Reasons: [facility]. ergocalciferol (Vitamin D2) 1,250 mcg (50,000 unit) capsule Take 1.25 mcg by mouth once a week . flu vaccine [id number],6mos up, (FLUZONE QUAD/AFLURIA QUAD) injection Sign this order in conjunction with the immunization order to satisfy [place] Board [employer] Pharmacy Positive ID requirements for immunization orders. . 0.5 mL 0 fluticasone-salmeterol (ADVAIR DISKUS) 250-50 mcg/dose diskus inhaler Inhale 1 (one) puff 2 (two) times a day . FreeStyle Zeinab 2 [place] Misc Inject 1 each under the skin [...] Comments: Agitated, tangential documented in this encounter [facility] 04-27-2023 manager corporate strategy Note NO OT services provided this date due to patient refused due to illness. [facility] 04-27-2023 Miscellaneous Notes NO OT services provided this date due to patient refused due to illness. documented in this encounter [facility] 03-30-2023 Miscellaneous Notes Pt port de-accessed per Dr order without complication. No bleeding, or sign of infection present. This nurse read over AVS with patient, who had no questions at this time. Pt declined staff transport via wheelchair for discharge. Pt daughter- in- law transported via wheelchair for discharge. Pt discharged in stable condition. [id number] ENCOUNTER FOR HOME MEDICAL EQUIPMENT PATIENT: Addie Jean Baptiste : 1975 Statement of Care: I certify that Addie Jean Baptiste is under my care and that I had a cvkk-xw-affo encounter with this patient today to evaluate and discuss the need for home medical equipment. I certify that based on the findings of this evaluation, which included but was not limited to the tuds-la-dgbo requirements, the following home medical equipment is [...] Outcome: Partially Met documented in this encounter [facility] 03-30-2023 Note Formatting of this n [...] for discharge. Pt discharged in stable condition. [facility] 03-30-2023 Hospital course Narrative [facility] DISCHARGE SUMMARY Addie Jean Baptiste Admitted: 03/29/2023 Discharge Date: 03/30/23 PCP Handoff Recommended Outpatient Testing None Results Pending At Discharge None Clinical Summary Addie Jean Baptiste is a 47 y.o. female patient of System, Provider Not In with history of T2DM, seizure disorder, HTN, and chronic back pain presented to [facility] with chest pain. Assessment and Plan Atypical [...] . Quantity: 30 tablet Physician(s) Follow Up: [facility] Address: [facility]: [facility] Morgan, Velai, Red, [facility] [phone] Condition at Discharge: Stable Disposition: Home On day of discharge, I performed a final bedside evaluation including a physical exam. I reviewed discharge recommendations with the patient in person. Patient instructions, including activity, were given to the patient/family at discharge. Time spent on discharge: > 30 minutes Completed by: Harshad Rizzo on 03/30/23, 12:52 PM documented in this encounter [facility] 03-30-2023 Consult note Associated Order (s): IP CONSULT TO HOME HEALTH HUB [facility] agency: Accepted or Pending Name of agency: (if [facility], include region) TIA Gunn can accept. [facility] created for the following services: [or waiting for ____ (i.e wound care)] Yes, SN/PT/OT/aide Verify the demographics (residential address) [address] [place] [address] What is the primary number to reach you? [phone] Who is your family physician/primary care physician? PCP Sheng [facility] [phone] Message left with office Do you have a caregiver and/or teachable caregiver (list relationship, name & phone #)? Shi Jean Baptiste (Mother) [phone] (Home Phone) Has the patient been added to capacity board/tracking sheet? ([place] only) Velia without limitations Estimated Discharge Date (KUNAL): 03/30 If discharge needs change, please reach out to liaison assigned on treatment team as hub is not notified of new consults once team is following. Thank you. [facility] 03-30-2023 Consult note Associated Order (s): IP CONSULT TO HOME HEALTH HUB [facility] agency: Accepted or Pending Name of agency: (if [facility], include region) [facility] Gunn can accept. [facility] created for the following services: [or waiting for ____ (i.e wound care)] Yes, SN/PT/OT/aide Verify the demographics (residential address) [address] [place] [address] What is the primary number to reach you? [phone] Who is your family physician/primary care physician? PCP Sheng [facility] [phone] Message left with office Do you have a caregiver and/or teachable caregiver (list relationship, name & phone #)? Shi Jean Baptiste (Mother) [phone] (Home Phone) Has the patient been added to capacity board/tracking sheet? ([facility] only) Velia without limitations Estimated Discharge Date [...] Current Admission?: Yes Post-Acute Patient Choice 1: [facility] Post-Acute Patient Choice 2: no preference HME: [...] need SN for medication management, PT/OT, and PREDICTIVE MAINTENANCE TECHNICIAN. After review of options, patient chose [facility] [...] this time. CM called and spoke with [facility] Residential Assistant, Ashley [phone], she confirmed that patient has established with [...] January, a Waiver application was sent to [facility], but patient stated that no one ever contacted her regarding the application. CHW consulted to submit a new Waiver application, as patient could benefit from long-term PREDICTIVE MAINTENANCE TECHNICIAN, medication management, and incontinence supplies. CHW Ravi [...] chronic pain:: Yes documented in this encounter [facility] 03-30-2023 Note Formatting of this n ote might be different from the original. HNOP-NL-VESA ENCOUNTER FOR HOME MEDICAL EQUIPMENT PATIENT: Addie Jean Baptiste : 1975 Statement of Care: I certify that Addie Jean Baptiste is under my care and that I had a kfig-nh-kpyx encounter with this patient today to evaluate and discuss the need for home medical equipment. I certify that based on the findings of this evaluation, which included but was not limited to the uzqa-yd-ogqz requirements, the following home medical equipment is medically necessary: Transport wheelchair for the treatment of mobility limitations to enable participation in mobility-related activities of daily living (MRADL) in the home. Based on the current evaluation, patient can safely use prescribed equipment to perform mobility-related activities of daily living (MRADL) in the home.. Signed by: Harshad Rizzo MD on 03/30/2023 [facility] 03-30-2023 Consult note Associated Order (s): IP CONSULT TO CARE MANAGEMENT Care Management Consult Note Date: 03/30/2023 Time: 11:37 AM Patient Name: Addie Jean Baptiste Date of : 1975 Reason for Consult: Discharge Needs Discharge Plan: D/C Disposition: Home Health Care Services Related to Current Admission?: Yes Post-Acute Patient Choice 1: [facility] Post-Acute Patient Choice 2: no preference HME: [...] need SN for medication management, PT/OT, and PREDICTIVE MAINTENANCE TECHNICIAN. After review of options, patient chose [facility] [...] this time. CM called and spoke with [facility] Residential Assistant, Ashley [phone], she confirmed that patient has established with [...] January, a Waiver application was sent to [facility], but patient stated that no one ever contacted her regarding the application. CHW consulted to submit a new Waiver application, as patient could benefit from long-term PREDICTIVE MAINTENANCE TECHNICIAN, medication management, and incontinence supplies. CHW Ravi [...] routine activities due to chronic pain:: Yes Health 03-29-2023 Note Formatting of this n ote [...] of comfort function goal Outcome: Partially Met [facility] 03-29-2023 History and physical note [facility]ICAL -- [facility] Patient Name: Addie Jean Baptiste : 1975 MR #: [id number] Admit Date: 03/29/2023 Physicians: System, Provider Not In (Family); No ref. provider found (Referring) Addie Jean Baptiste is a 47 y.o. female patient of System, Provider Not In with history of T2DM, seizure disorder, HTN, and chronic back pain presented to [facility] with chest pain. Atypical chest pain Elevated [...] Measures DVT Prophylaxis: heparin subcutaneous and SCDs Luque Catheter: absent Medication Reconciliation: Verified Risk variables [...] HTN, and chronic back pain presented to [facility] with chest pain. Pt states that her [...] Hennessy MD - 03/29/2023 2:56 PM EST [facility] NOTE ADDENDUM I saw and examined the [...] Diabetic peripheral neuropathy Seizure disorder Morbid obesity [facility] 03-29-2023 History and physical note [facility] -- [facility] Patient Name: Addie Jean Baptiste : 1975 MR #: [id number] Admit Date: 03/29/2023 Physicians: System, Provider Not In (Family); No ref. provider found (Referring) Addie Jean Baptiste is a 47 y.o. female patient of System, Provider Not In with history of T2DM, seizure disorder, HTN, and chronic back pain presented to [facility] with chest pain. Atypical chest pain Elevated [...] Measures DVT Prophylaxis: heparin subcutaneous and SCDs Luque Catheter: absent Medication Reconciliation: Verified Risk variables [...] HTN, and chronic back pain presented to [facility] with chest pain. Pt states that her [...] disorder Morbid obesity documented in this encounter [facility] 03-29-2023 Emergency department Note Called lab for HFP, and lipase- not troponin at this time. [facility] 03-29-2023 Emergency department Note Hourly rounding completed. Comfort measures and needs addressed. Pt resting on cot (notable chest rise and fall) with call light in reach. Pt updated on plan of care. [facility] 03-29-2023 Emergency department Note Called lab [...] arrival: Comments: 26 documented in this encounter [facility] 03-29-2023 Emergency department Note Hourly rounding completed. Comfort measures and needs addressed. Pt resting on cot (notable chest rise and fall) with call light in reach. Pt updated on plan of care. [facility] 03-29-2023 Emergency department Note Called lab for blood work again [facility] 03-29-2023 Emergency department Note Lab called for blood draw [facility] 03-29-2023 Emergency department Note Pt states I have right sided sharp pain on the side of my stomach also. Health 03-29-2023 Emergency department Triage note Per EMS She has had chest pain for 4 days. We have Asprin and nitroglycerin in route. She is paced on the 4 lead. Pt states mid sternal chest pain 01/01 Health 03-29-2023 Emergency department Note Bed: 17 Expected date: Expected time: Means of arrival: Comments: 26 Health 02-20-2023 Hospital course Narrative [facility] DIS[facility]GE SUMMARY Addie Jean Baptiste Admitted: 02/17/2023 Discharge Date: 02/20/23 Clinical Summary Addie Jean Baptiste is a 47 y.o. female patient of System, Provider Not In with history of diabetes, hypertension, hypothyroidism, COPD, and GERD, now presented to [facility] with chest pain. Assessment and Plan Chest [...] 02/20/23, 12:04 PM documented in this encounter [facility] 02-20-2023 Note Formatting of this n ote might be different from the original. Noted monitoring of Cr. Clinical Indicators: Admitted with chest pain then had stress test done on Receiving 0.9NS at 100 ml/hr and did get two 500 ml fluid boluses of 0.9*NS Cr 0.99 2.04 1.19 Please document the corresponding diagnosis reflective of these findings. For Example: SOLO, resolving Elevated Cr due to (please specify) Other (please specify) Unable to determine Thank you Sole Noel RN, BSN Clinical Power Manager [phone] After business hours you may contact Shannen Manley at [phone] (Weekdays until 10 PM and weekends 8 AM -10 PM) [facility] 02-20-2023 Miscellaneous Notes Noted monitoring of Cr. Clinical Indicators: Admitted with chest pain then had stress test done on Receiving 0.9NS at 100 ml/hr and did get two 500 ml fluid boluses of 0.9*NS Cr 0.99 2.04 1.19 Please document the corresponding diagnosis reflective of these findings. For Example: SOLO, resolving Elevated Cr due to (please specify) Other (please specify) Unable to determine Thank you Sole Noel RN BSN Clinical Power Manager [phone] After business hours you may contact Shannen Manley at [phone] (Weekdays until 10 PM and weekends 8 AM -10 PM) [facility] Utilization Review Notes EMERGENCY TEMPLATE HISTORY OF PRESENT ILLNESS: 47 y.o. female patient of System, Provider Not In with history of diabetes, hypertension, hypothyroidism, COPD, and GERD, now presented to [facility] with chest pain. Beginning around 4 PM, [...] Outcome: Partially Met documented in this encounter [facility] 02-20-2023 Consult note Associated Order (s): IP CONSULT TO CONE EXAMINER Attempted to meet with patient for Diabetes Education this am. She refused stating, I want no part of it . Patient also refused education at her December admission. [facility] 02-20-2023 Consult note Associated Order (s): IP CONSULT TO CONE EXAMINER Attempted to meet with patient for Diabetes [...] are currently staying in a motel in [place]. Pt asking for help with housing. SW [...] she is also wanting to get an Fish [employer] Wildlife Scientific Aid here in [place] as hers is still in [place]. Pt is agreeable to Waiver referral. SW also suggested looking into [employer] Sleeping rooms, or other affordable housing options. She did report she is able to make calls to places. Agreeable to housing help info on [employer]. SW faxed Waiver Referral. SW placed housing options on [facility] Community Resource Packet provided to pt. SW placed ambulatory referral to Endocrinology. Assessment and Background Information: Living Arrangements: Homeless Support Systems: Family members Assistance Needed: denies Type of Residence: ([facility]) Prior to Admission Home Care Services: No documented in this encounter [facility] 02-19-2023 Note Formatting of this n ote might be different from the original. Central UR Utilization Review Notes EMERGENCY TEMPLATE HISTORY OF PRESENT ILLNESS: 47 y.o. female patient of System, Provider Not In with history of diabetes, hypertension, hypothyroidism, COPD, and GERD, now presented to [facility] with chest pain. Beginning around 4 PM, [...] NS IV AT 100 ML/HR DISPO: TBD [facility] 02-19-2023 History of Present illness Narrative [facility] PROGRESS NOTE Addie Jean Baptiste is a 47 y.o. female patient of System, Provider Not In with history of diabetes, hypertension, hypothyroidism, COPD, and GERD, now presented to [facility] with chest pain. Assessment and Plan Chest [...] Outpatient Testing: Quality Measures DVT Prophylaxis: lovenox Luque Catheter: absent Code Status Full Code; code [...] not been spiked, are well within the substance abuse rn expiration date and have been stored at room temperature (<28 days). Continue with insulin regimen as written. Please call pharmacy with any questions. Pharmacist: Dannielle Barrett Date: 02/18/2023 Contact Information: [phone] documented in this encounter [facility] 02-19-2023 Consult note Formatting of th is note might be different from the original. Attempted to meet with patient this am for Diabetes Education. Per primary nurse, the patient is not clinically appropriate at this time. She is drowsy and hard to arouse. Will check back at a later time. [facility] 02-19-2023 Note Formatting of this n [...] primarily medication induced, low suspicion for infection. [facility] Work Phone: 02-18-2023 Hospital Discharge instructions Jalyn Yanes ANA LAURA - 02/18/2023 3:30 PM EDT ADDITIONAL HOUSING INFORMATION FOR AFFORDABLE HOUSING OPTIONS: [facility] Mobile Home Nunes [facility] [address] [facility] [address] [phone] 1-3 bedroom metro accepted [place] [address] [place] [address] [phone] [phone] [place] [address] [facility] [address] [phone] [facility] [address] [facility] [address] [phone] 1-3 bedroom subsidized housing [place] [address] [facility] E [phone] [employer] [address] [phone] [place] [address] [facility] [address] [facility] [phone] [place] [facility] [address] [phone] [place] [address] [facility] [phone] [place] [address] [phone] [place] [place] [address] [facility] [phone] [facility] [address] [phone] [facility] [phone] 1 & 2 bedrooms metro accepted [place] [address] [facility] [address] [phone] 1 & 2 bedrooms metro accepted [employer] [address] [phone] [employer] [address] [facility] [address] [phone] [facility] [address] [facility] [phone] [address] [phone] 1-3 bedroom metro accepted Residential Noa Lopez [address] [facility] [address] [phone] 1-3 bedroom metro accepted [address] [phone] [phone] [facility] halfway [address] [facility] [phone] [place] [address] [phone] 1-3 bedroom available [facility] [address] [phone] 1-3 bedroom metro accepted [address] [place] [address] [phone] [place] [address] [phone] [phone] [facility] [address] [phone] [employer] and [employer]ouses [address] [phone] Johnny Wall [phone] [employer] [address] [phone] Karen Stauffer [phone] [facility] Properties [address] [phone] Zonia Maldonado [phone] [employer] [address] [phone] Maximinopattie Cardonaen [phone] [facility] [address] [phone] [employer] [place] [facility] [phone] Dominique [place] [phone] Nikos Thomas [phone] Maricruz Sanchez [facility] [phone] Robert Duran [phone] WARREN Calhoun [phone] [facility] Housing [address] Gui Higuera [phone] We Rent Velia (Chris Matamoros) [phone] Income Based Housing Pierron Mello [email or web address] [email or web address] [address] (Section 8) Bill Your [phone] [address] (Section 8) Sleeping Rooms [facility] (Section 8) [employer] [phone] [employer] Tere[address] ( must be senior or disabled) [place] Sleeping Rooms [phone] [address] (must be senior or disabled) [facility] Sleeping Rooms - [phone] ( must be senior or disabled) Caryn Mario - [phone] Maximino Portillo - [phone] Refer.com Groups Websites to find Rentals https://www.[employer]/groups/25 6891899028654/ www.rent.[employer] https://www.[employer]/groups/21 1017350503611 www.apartments.com https://www.[employer]/groups/13 76094373935836/ www.rentals.com https://www.[employer]/groups/55 1472001869229/ CloudPay/yahmkl-vjoced-op/re ntals/ [facility] FOOD ASSISTANCE [facility] [phone] By appointment only Thursday-Thursday between 10am and 3pm ([address] [facility]. Must provide photo ID and proof of address) [facility] [phone] , Wed, Fri, Sat 10a to 12p. 3p to 5p. ([address] [facility]. Photo ID and proof of address required) [facility] [phone] 3rd Sat of each month, 10a to 12p ([address] [facility]. photo ID and proof of address required) Life (LINK) [phone] 4th of each month. Call on Thursday between 10a and 2p to schedule ([address]) Chuy/German Community Pantry [phone] Thursday 2pm-6pm Thursday Produce 2pm to 4pm [facility] [phone] ([address] [facility]. Call to inquire) [facility] [phone] Monthly giveaway, call for info ([address] [facility]) [facility] [phone] Wednesdays 830am to 10am bread giveaway only ([address] [facility]) Breaking [employer] Food Pantry [phone] 3p to 5p ([address] [facility]. Photo ID and proof of address required) [employer] [phone] call for info ([address] [facility]) Helping Hands Helping Others Food Pantry [phone] Mondays and Thu 4p to 7p, soup kitchen Tuesdays 530p to 6p ([address] [facility]. Photo ID and proof of address required) [facility] Food Pantry [phone] call for info ([address] budSaint [facility]) [facility] Commodity Supplemental Food Program Contact Fatimah at [phone] Food box distribution for income eligible [facility] seniors 60+ ([address] Hamilton[facility]) The following attachments cannot be sent through Care Everywhere.Chest Pain (Sierra Leonean)documented in this encounter [facility] 02-18-2023 Consult note Associated Order (s): [...] are currently staying in a motel in [place]. Pt asking for help with housing. SW [...] she is also wanting to get an Fish [employer] Wildlife Scientific Aid here in [place] as hers is still in [place]. Pt is agreeable to Waiver referral. SW also suggested looking into [employer] Sleeping rooms, or other affordable housing options. She did report she is able to make calls to places. Agreeable to housing help info on [facility]. SW faxed Waiver Referral. SW placed housing options on [facility] Community Resource Packet provided to pt. SW placed ambulatory referral to Endocrinology. Assessment and Background Information: Living Arrangements: Homeless Support Systems: Family members Assistance Needed: denies Type of Residence: (Hotel) Prior to Admission Home Care Services: No [facility] 02-18-2023 Note Formatting of this n [...] echo Rest of management as per H&P [facility] 02-18-2023 Note Formatting of this n [...] Goal: Absence of falls Outcome: Partially Met [facility] 02-18-2023 Physician Emergency department Note Associated Order(s): ECG 12 Lead Images from the original note were not included. ED PROVIDER NOTE [facility] EMERGENCY [facility]PARTMENT NAME: Addie Organ AGE: 47 y.o. : 1975 VISIT DATE: 02/17/2023 CSN: [id number] PCP: System, Provider Not In Clinical Impression: 1. Chest pain, unspecified type 2. Flank pain ED Disposition ED Disposition Hospitalize Condition -- Comment Recommended Level of Care: Med Surg Phone call required?: No Follow-up Information Follow-up information has not been specified. Contact information for after-discharge care Follow-up information has not been specified. Medical Decision Making I reviewed prior [facility] records, patient is agreeable to labs [...] plan, .I reviewed the patient's case with [facility] hospitalist whom accepted the patient for further [...] MRSA (methicillin resistant Staphylococcus aureus) Pacemaker Seizures ([facility] [facility] Stroke (HCC) Past Surgical History: Procedure Laterality [...] Temp src Pulse Resp SpO2 Height Weight 02/17/232258 (!) 151/109 -- -- 91 18 98 [...] or performed during the hospital encounter of 09/26/23 Troponin x 2 (Now and Repeat in [...] Yellow Clarity, Urine Hazy (A) Clear Specific [place] 1.025 1.005 - 1.025 pH, Urine 5.0 [...] 2. Chronic and incidental findings as above. /v Workstation ID: [id number] CT Head Or Brain [...] Ladan Gonzalez Karen Michelle, DO 02/18/23 0040 [facility] 02-18-2023 Emergency department Note Associated Order(s): ECG 12 Lead Images from the original note were not included. ED PROVIDER NOTE [facility] EMERGENCY DEPARTMENT NAME: Addie Jean Baptiste AGE: 47 y.o. : 1975 VISIT DATE: 02/17/2023 CSN: [id number] PCP: System, Provider Not In Clinical Impression: 1. Chest pain, unspecified type 2. Flank pain ED Disposition ED Disposition Hospitalize Condition -- Comment Recommended Level of Care: Med Surg Phone call required?: No Follow-up Information Follow-up information has not been specified. Contact information for after-discharge care Follow-up information has not been specified. Medical Decision Making I reviewed prior [facility] records, patient is agreeable to labs [...] plan, .I reviewed the patient's case with [facility] hospitalist whom accepted the patient for further [...] High Risk (01/14/2023) Overall Financial Resource Strain (CARDI) Difficulty of Paying Living Expenses: Hard Housing [...] Temp src Pulse Resp SpO2 Height Weight 02/17/239 (!) 151/109 -- -- 91 18 98 % -- -- 02/17/232257 -- -- -- -- 16 -- -- -- 02/17/23 2231 (!) 158/103 -- -- 88 -- 96 [...] Yellow Clarity, Urine Hazy (A) Clear Specific [place] 1.025 1.005 - 1.025 pH, Urine 5.0 [...] her back. Patient arrived from home via [facility] EMS report Patient has been complaining of some chest tightness and SOB since around 4pm. Patient indicated that she feels that her chest is tight and the room is spinning. Patient had normal vitals in route. Asprin and nitroglycerin given in route. See EMS report Bed: 10 Expected date: Expected time: Means of arrival: Comments: 26- CP documented in this encounter [facility] 02-18-2023 History and physical note [facility] HISTORY AND PHYSICAL -- [facility] Patient Name: Addie Jean Baptiste : 1975 MR #: [id number] Admit Date: 02/17/2023 Physicians: System, Provider Not In (Family); No ref. provider found (Referring) Addie Jean Baptiste is a 47 y.o. female patient of System, Provider Not In with history of diabetes, hypertension, hypothyroidism, COPD, and GERD, now presented to [facility] with chest pain. Chest pain Admit patient. [...] ED no Quality Measures DVT Prophylaxis: lovenox Luque Catheter: absent Medication Reconciliation: Verified Risk variables [...] hypothyroidism, COPD, and GERD, now presented to [facility] with chest pain. Beginning around 4 PM, [...] normal coloration Psych: normal mood and affect [facility] 02-18-2023 History and physical note [facility] HISTORY AND PHYSICAL -- [facility] Patient Name: Addie Jean Baptiste : 1975 MR #: [id number] Admit Date: 02/17/2023 Physicians: System, Provider Not In (Family); No ref. provider found (Referring) Addie Jean Baptiste is a 47 y.o. female patient of System, Provider Not In with history of diabetes, hypertension, hypothyroidism, COPD, and GERD, now presented to [facility] with chest pain. Chest pain Admit patient. [...] ED no Quality Measures DVT Prophylaxis: lovenox Luque Catheter: absent Medication Reconciliation: Verified Risk variables [...] hypothyroidism, COPD, and GERD, now presented to [facility] with chest pain. Beginning around 4 PM, [...] mood and affect documented in this encounter [facility] 02-17-2023 Emergency department Note Patient is complaining of chest pain all over, a headache, and right sided abdominal pain that radiates to her back. [facility] 02-17-2023 Emergency department Note Patient arrived from home via [facility] EMS report Patient has been complaining of some chest tightness and SOB since around 4pm. Patient indicated that she feels that her chest is tight and the room is spinning. Patient had normal vitals in route. Asprin and nitroglycerin given in route. See EMS report [facility] 02-17-2023 Emergency department Note Bed: 10 Expected date: Expected time: Means of arrival: Comments: 26- CP [facility] 02-09-2023 Instructions Josué Christianson, - 02/09/2023 [...] repeat 10 to 20 times. Developed by [employer]. Published by [facility]. 2009 [facility] and/or its affiliates. All Rights Reserved. documented in this encounter [facility] 02-09-2023 History of Present illness Narrative CC: Knee pain HPI HISTORY: Addie Jean Baptiste who is a 47 y.o. female that presents for evaluation of a chief complaint: Chief Complaint Patient presents with Right Knee - Pain NEW PATIENT RT KNEE PAIN, fell 01/19/23 went to [facility] ER No notes on file It is [...] needed for muscle spasms. 06/26/17 Michi San, DO diclofenac sodium 3 % Gel Apply 1 application. topically 2 (two) times a day for 5 days . 01/31/23 02/05/23 Cecilia Liu MD divalproex (DEPAKOTE) 500 MG delayed release (DR) tablet Take 1 (one) tablet (500 mg total) by mouth 2 (two) times a day . 05/31/20 Manuel Cardona MD Emgality Pen 120 mg/mL Pen every 30 (thirty) days For headaches, had 04/2020; states need to pick it up tomorrow at pharmacy - uses [facility] in [place] . 06/01/20 Manuel Cardona MD fluticasone-salmeterol (ADVAIR [...] needed for nausea . 01/25/23 02/01/23 Ani Gonzales, BEATRIZ pregabalin (LYRICA) 75 MG capsule Take 1 [...] mg total) by mouth daily . 05/31/20 Manuel Cardona MD Family History Problem Relation Age of Onset [...] normal Alignment: normal Other FractureNegative BMP Order: [id number] Status: Final result Visible to patient: No ([facility] Result Notes Component Ref Range & [...] mellitus with other specified complication, unspecified whether senior care insulin use (HCC) We a long discussion [...] 40 MG tablet documented in this encounter [facility] 11-13-2022 Note Admission and Discha rge [...] removal of hardware by Dr. Amaro in [facility] however she was declined transfer to [place] when ED attempted to do so and [...] Dr. Box - case d/w Dr. Olivia oBx via phone unable to see pt. as [...] home health care wound care nurse from [facility] as soon as she returns home [...] be reviewed and discussed with PCP or manufacturing applications engineer MD once the hospital knitting machine operator helper is able to reach him/her. I spent a lengthy amount of time with the patient and/or family reviewing discharge instructions, medications, medication use. Patient to follow-up with PCP and specialty providers as scheduled on discharge. Patient being discharged in medically/hemodynamically stable cond. with instructions to return to the hospital if sympto (more content not included)... [facility] Comment on above: Result Comment: Elec [...] Locations R1: This test was performed at: [facility], [address] [place] [address], [address] [place] [address], [facility] Comment on above: Performed By: #### [id number] ####[facility] [address] [place] [address] 11-05-2022 Note Microbiology PROCEDURE: Blood Culture Charcoal [R1] SOURCE: Blood BODY SITE: Chest COLLECTED DATE/TIME: 10/28/2022 19:18 EDT RECEIVED DATE/TIME: 10/28/2022 20:37 EDT START DATE/TIME: 10/28/2022 20:37 EDT FREE TEXT SOURCE: Preston Lugo DO, DO, John FINAL REPORTS Final Report [] Verified Date/Time: 11/05/2022 07:00 EDT No growth at 7 days. Performing Locations R1: This test was performed at: [facility], [address] [place] [address], [address] [place] [address], [facility] Comment on above: Performed By: #### 1 [id number] ####[facility] [address] [address] 10-31-2022 Note Attempted PT Evaluat ion x 3 days, but pt denies any PT needs and states she has been up walking to the bathroom Independently. No evaluation given Please re-order PT services if any changes to WB status [facility] 10-29-2022 Note Order received and isabell box reviewed. Will Hold PT Evaluation and await Podiatry consult prior to beginning [facility] 10-29-2022 Note Basic Information Admit Date/Time:10/29/2022 00:01 Pt had hardware removed from R foot by [facility] in [place] on . Surgical site now appears infected [...] 15. GERD 16. History of MRSA; sees recreation specialist Dr. Box Patient was hospitalized at [facility] last because her right foot was red and swollen. She was taken to [place] and she was admitted for cellulitis of [...] are essentially unremarkable. ER reached out to [place] to be transferred to where she had [...] hysterectomy 5. Status post pacemaker placement 6. Ujdrge-z-Vvkf placed 7. LEEP procedure FAMILY HISTORY Mother [...] touch; sutures intact; (more content not included)... [facility] Comment on above: Result Comment: Elec tronically Signed By: Jacob Damon DO\.br\Date and Time Signed: 10/29/22 01:49 EDT 10-07-2022 [...] DIAGNOSIS: cauda equina ORDERING PROVIDER: KEYLA CLAY TECHNOLOGISTS NOTE: FLUOROSCOPIST: BRIDGER BARNES FLUORO TIME: 2.6 [...] the critical portions of the procedure. [facility] 10-07-2022 Hospital Discharge instructions Nikko Kendrick, - 10/07/2022 7:16 AM EDT Tylenol (acetaminophen) [...] see your Primary Care Physician (or call [phone] if you do not have a PCP) for follow up in the next 5-7 days. TRANSPORTATION TO [facility] FOR AN APPOINTMENT: PLEASE CALL [phone]. Extremity Injury Instructions: Return to the ED [...] sent through Care Everywhere.Urinary Incontinence Discharge Instructions (Sierra Leonean)Diabetic Neuropathy ([place] Leonean)documented in this encounter [facility] 10-07-2022 Note POST-PROCEDURE NOTE Procedure: Myelogram Pre-operative [...] the procedure. Sonia Beach MD Radiology [facility] 10-07-2022 Note Pre-Procedure Note HISTORY: Procedure: Myelogram [...] Directives (Living will, health care power of estate planning attorney): none Patient Recent Code Status: No Order Code Status For This Procedure: Full Code Sonia Beach MD Radiology [facility] 10-06-2022 Evaluation + Plan note Extrac shantel [...] NM Myocardial Spect Rest/Stress 1 Day 12/16/21 [facility]04-24-2023 Hospital Discharge instructions Patient Education 09/15/2022 12:14:10 [...] cut, a sore, or an invasive medical economics consultant, it can cause a serious infection. What are the causes? This condition is caused by staph bacteria. Illness may develop after exposure to the bacteria through: Qqan-ul-zbyd contact with someone who is infected with MRSA. Touching surfaces that have the bacteria on them. Having a procedure or using equipment that allows MRSA to enter the body. Having MRSA that lives on your skin and then enters your body through: ?A cut or scratch. ?A surgery or procedure. ?The use of a medical economics consultant. Contact with the bacteria may occur: During a stay in a hospital, rehabilitation facility, fci, or other health care facility (health care associated MRSA). In daily activities where there is close contact with others, such as sports, child welfare caseworker centers, or at home (community-associated MRSA). What [...] system (immune system). Play sports that involve kgmf-hu-tdgv contact. Live in a crowded place, like a dormitory or [employer] games barracks. Share towels, razors, or sports equipment [...] Follow these instructions at home: Medicines Take ygqz-yba-mzchqga and prescription medicines only as told by [...] are not available, use an alcohol-based hand electrolysis needle operator. Avoid close contact with those around you [...] provider. Document Revised: 07/28/2019 Document Reviewed: 07/29/2019 Elsevier Patient Education 2022 [employer]. 09/15/2022 12:14:10 Cellulitis, Adult Cellulitis, Adult Cellulitis [...] Follow these instructions at home: Medicines Take gici-xvq-zlmmqbn and prescription medicines only as told by [...] such as antibiotic medicines or antihistamines. Take anog-lnn-ygsfqpg and prescription medicines only as told by [...] provider. Document Revised: 02/20/2022 Document Reviewed: 02/20/2022 [employer] Patient Education 2022 [employer]. Follow Up Care 09/12/2022 13:40:51 With:LAURENT FRANCO Address: [address], [place] [address]- Business (1) When: Unknown Comments:Appointment line is out of service. Please contact your PCP for an appointment. Thank you! With:Soto Box Address: [facility] [address] [place] [address]- 0 Business (1) When:3 to 5 days Comments:Call for followup appointment [facility]04-24-2023 Evaluation + Plan noteExtracted from: Title:Discharge Note [...] Oral, Daily ergocalciferol 50,000 intl units Cap, 39812 International_Unit= 1 cap(s), Oral, Thursday hydrOXYzine pamoate [...] Soto Box Within 3 to 5 days [facility] [address] [place] [place] [address]- 0 Business (1) Additional Instructions: LAURENT FRANCO In 0 days [address] [place] [address] [place] [address]- Business (1) Additional Instructions: MRSA Infection, Diagnosis, Adult Cellulitis, Adult Extracted from: Title:APSO Note Author:Stone HICKEY Date:09/14/22 PLAN 1. Cellulitis (L03.90: Cellulitis, unspecified) Patiently recently admitted to [facility] and underwent an incision and drainage of [...] shoe follow-up next week Her cultures at [facility] was positive for MRSA Blood culture negative Wound culture positive for staph coag positive prelim Pain control when patient's blood pressure stable/normotensive. 2. Hypertensive heart failure (I11.0: Hypertensive heart disease with heart failure) Is received 2 L of IV fluid since admission we will give 1 more today as patient is still hypotensive 3. CAD (coronary artery disease) (I25.10: Atherosclerotic heart disease of [place] coronary artery without angina pectoris) history of VT with AICD placed per Dr Noble in [place]. Statin, aspirin, BB 4. HTN (hypertension) (I10: [...] (L03.90: Cellulitis, unspecified) Patiently recently admitted to [facility] and underwent an incision and drainage of [...] pending. Consult podiatry pending Her cultures at [facility] was positive for MRSA Blood culture pending Wound culture positive for staph coag positive prelim Pain control when patient's blood pressure stable/normotensive. 2. Hypertensive heart failure (I11.0: Hypertensive heart disease with heart failure) Is received 2 L of IV fluid since admission we will give 1 more today as patient is still hypotensive 3. CAD (coronary artery disease) (I25.10: Atherosclerotic heart disease of [place] coronary artery without angina pectoris) history of VT with AICD placed per Dr Noble in [place]. Statin, aspirin, BB 4. HTN (hypertension) (I10: [...] Consult to Infectious Disease Physician Consult to Procurement Inspector Continuous Pulse Oximetry Diabetic/Calorie Control Diet Elevate [...] NM Myocardial Spect Rest/Stress 1 Day 12/16/21 [facility]03-31-2023 Discharge summary Author Jeana Martini [facility] August 22, 2022 1:35pm Note Date/Time August 22, 2022 1:3 0pm [facility] [address] [place] [address] Discharge Summary Signed Patient: Addie Jean Baptiste MR#: [id number] : 1975 Acct:[id number] Age/Sex: 47 / F Adm Date: 3 Loc: Room: [address] [place] [address]: Jeana Martini MD Copies to: Laurent Martini MD~ Providers Date of Discharge: 08/22/22 [...] on intravenous antibiotic Patient was seen by recreation specialist who recommended and performed bedside incision and [...] place, time and person, morbidly obese HEENT: [place] conjunctiva and NL buccal mucosa Neck: Supple, [...] ask your primary care provider to obtain [facility] records entirely to follow up on all of the abnormal physical, laboratory, and imaging findings that I have not addressed. Please follow-up with Dr. Romero to evaluate your circulation Please return back to the emergency room or seek medical attention if your symptoms worsen or return. Discharging you from [facility] does not mean that your [...] to 2 weeks. Please call for appointment.) [facility] [Physician] - 08/25/22 10:15 am (Follow-up with your Primary Care Provider, call office to reschedule if needed. ) Documented By: Jeana Martini MD 08/22/22 1325 Signed By: <Electronically signed by Jeana Martini MD> 08/22/22 1335 [facility] Work Phone: 1(650) 854-445403-31-2023 Hospital Discharge instructionsAmbulatory Orders* Initiate Home Health Time Frame: 08/22/22, Location: Determined By Patient Additional Instructions I may not have addressed or treated all of your medical illnesses or the abnormal blood work or imaging studies during this hospitalization. Please ask your primary care provider to obtain [facility] records entirely to follow up on all of the abnormal physical, laboratory, and imaging findings that I have not addressed. Please follow-up with Dr. Romero to evaluate your circulation Please return back to the emergency room or seek medical attention if your symptoms worsen or return. Discharging you from [facility] does not mean that your [...] Assist with medication management and [facility] Work Phone: 1(601) 823-878403-31-2023 Progress note Author Shameka Romero [facility] August 22, 2022 9:56am Note Date/Time August 22, 2022 9:5 6am [facility] [address] [place] [address] Vascular Surgery Progress Note Signed Patient: Addie Jean Baptiste MR#: [id number] : 1975 Acct:[id number] Age/Sex: 47 / F Adm Date: 3 Loc: Room: [address] [place] [address] Type: ADM IN Attending Dr: Jeana Martini [...] to the special suite and placed her [facility] angiography table. She is extremely anxious and [...] signed by Shameka Romero MD> 08/22/22 0956 [facility] Work Phone: 1(356) 598-696703-31-2023 Progress note Author Jeana Martini [facility] August 22, 2022 9:54am Note Date/Time August 22, 2022 9:5 5am [facility] [address] [place] [address] Hospitalist Progress Note Signed Patient: Addie Jean Baptiste MR#: [id number] : 1975 Acct:[id number] Age/Sex: 47 / F Adm Date: 3 Loc: 3T Room: [address] [place] [address] Type: ADM IN Attending Dr: Jeana Martini [...] place, time and person, morbidly obese HEENT: [place] conjunctiva and NL buccal mucosa Neck: Supple, [...] Insuln.Pen SUBCUT 08/20/23 11:59 Not Given TID.WM.HS [facility] Protocol Levetiracetam 750 mg 08/20/22 09:00 08/22/22 [...] Peripheral vascular disease Discussed this with Dr. Langenberg. He is recommending angiogram. Continue IV fluid hydration. Hypomagnesemia and hypophosphatemia. Phosphorus and magnesium supplementation. Diabetes. Sliding scale coverage. Counseling about diabetes and diet Hypertension, BP on the low side requiring holding her BP meds DVT prophylaxis Lovenox subcu injection. Documented By: Jeana Martini MD 08/22/2253 Signed By: <Electronically signed by Jeana Martini MD> 08/22/22 0954 [facility] Work Phone: [phone]) 228-678903-30-2023 Consult note Author Shameka Romero [facility] August 21, 2022 4:02pm Note Date/Time August 21, 2022 4:0 0pm [facility] [address] [place] [address] Vascular Surgery Consult Note Signed Patient: Addie Jean Baptiste MR#: [id number] : 1975 Acct:[id number] Age/Sex: 47 / F Adm Date: 3 Loc: Room: [address] [place] [address] Type: ADM IN Attending Dr: Jeana Martini [...] date: 08/21/2022 Requesting Physician: Jeana Martini MD [facility] Vaccinated for COVID-19?: Yes Medical History Anxiety [...] % (Auto) 69.4 Lymph % (Auto) 20.6 [place] % (Auto) 7.4 Eos % (Auto) 1.8 Baso % (Auto) 0.8 Nucleat RBC Rel Count 0.0 Neut # (Auto) 5.7 Lymph # (Auto) 1.7 [place] # (Auto) 0.6 Eos # (Auto) 0.2 [...] MPV Neut % (Auto) Lymph % (Auto) [place] % (Auto) Eos % (Auto) Baso % (Auto) Nucleat RBC Rel Count Neut # (Auto) Lymph # (Auto) [place] # (Auto) Eos # (Auto) Baso # [...] Acute Documented By: Shameka Romero MD 08/21/22 1559 Signed By: <Electronically signed by Shameka Romero MD> 08/21/22 1600 [facility] Work Phone: [phone]) 894-532703-30-2023 Progress note Author Lawrence Kim [facility] August 21, 2022 11:22am Note Date/Time August 21, 2022 11: 22am [facility] [address] [place] [address] Infect. Disease Progress Note Signed Patient: Addie Jean Baptiste MR#: [id number] : 1975 Acct:[id number] Age/Sex: 47 / F Adm Date: 3 Loc: Room: [address] [place] [address] Type: ADM IN Attending Dr: Jeana Martini [...] IV-PUSH PRN PRN PRN Reason: Hypoglycemia Stop: 03/28/24 10:20 Enoxaparin Sodium (Enoxaparin 40 Mg/0.4 Ml Syringe) 40 mg SUBCUT DAILY@1000 [facility] Stop: 08/20/23 09:59 Last Admin: 08/21/22 09:01 Dose: 40 mg Ergocalciferol (Ergocalciferol 1,250 Mcg (50,000 Units) Capsule) 1,250 mcg PO Q7D [facility] Stop: 08/20/23 09:44 Last Admin: 08/20/22 14:44 Dose: Not Given Furosemide (Furosemide 20 Mg Tablet) 20 mg PO DAILY.8A [facility] Stop: 08/20/23 07:59 Last Admin: 08/21/22 09:00 [...] 300 Units/3 Ml Insuln.Pen) 0 units SUBCUT TID.[facility]; Protocol Stop: 08/20/23 11:59 Last Admin: 08/21/22 09:03 Dose: Not Given Levetiracetam (Levetiracetam 250 Mg Tablet) 750 mg PO BID [facility] Stop: 08/20/23 08:59 Last Admin: 08/21/22 08:59 Dose: 750 mg Levothyroxine Sodium (Levothyroxine 75 Mcg Tablet) 75 mcg PO DAILY@0630 [facility] Stop: 08/20/23 06:29 Last Admin: 08/21/22 06:09 Dose: 75 mcg Lisinopril (Lisinopril 40 Mg Tablet) 40 mg PO DAILY [facility] Stop: 08/20/23 08:59 Last Admin: 08/21/22 09:01 Dose: 40 mg Metformin HCl (Metformin 500 Mg Tablet) 1,000 mg PO BID.WITH.MEALS [facility] Stop: 08/20/23 07:59 Last Admin: 08/21/22 09:00 Dose: 1,000 mg Pantoprazole Sodium (Pantoprazole 40 Mg Tablet.Dr) 40 mg PO DAILY [facility] Stop: 08/21/23 08:59 Last Admin: 08/21/22 09:01 Dose: 40 mg Pregabalin (Pregabalin 150 Mg Capsule) 150 mg PO HS [facility] Stop: 02/16/23 03:44 Last Admin: 08/20/22 21:12 Dose: 150 mg Quetiapine Fumarate (Quetiapine Fumarate 200 Mg Tablet) 800 mg PO HS [facility] Stop: 08/20/23 03:59 Last Admin: 08/20/22 21:12 Dose: 800 mg Saccharomyces Boulardii (Saccharomyces Boulardii 250 Mg Capsule) 250 mg PO BID.WITH.MEALS [facility] Stop: 08/20/23 07:59 Last Admin: 08/21/22 08:59 [...] signed by MD Lawrence Kim> 08/21/22 1122 [facility] Work Phone: [phone]) 461-789103-30-2023 Progress note Author Jeana Martini [facility] August 21, 2022 10:10am Note Date/Time August 21, 2022 10: 10am [facility] [facility] [address] [place], [place] [id number] Hospitalist Progress Note Signed Patient: Addie Jean Baptiste MR#: [id number] : 1975 Acct:[id number] Age/Sex: 47 / F Adm Date: 3 Loc: 3T Room: [address] [place] [address] Type: ADM IN Attending Dr: Jeana Martini [...] place, time and person, morbidly obese HEENT: [place] conjunctiva and NL buccal mucosa Neck: Supple, [...] signed by Jeana Martini MD> 08/21/22 1010 [facility] Work Phone: 1(643) 965-194303-29-2023 Consult note Author Swapnil Castillo [facility] August 20, 2022 1:14pm Note Date/Time August 20, 2022 1:1 3pm [facility] [address] [place] [address] Podiatry Consult Note Signed Patient: Addie Jean Baptiste MR#: [id number] : 1975 Acct:[id number] Age/Sex: 47 / F Adm Date: 3 Loc: Room: [address] [place] [address] Type: ADM IN Attending Dr: Jeana Martini [...] <Electronically signed by LUPE Castillo> 08/20/22 1314 [facility] Work Phone: 1(496) 801-742103-29-2023 Consult note Author Lawrence Kim [facility] August 20, 2022 10:27am Note Date/Time August 20, 2022 10: 26am [facility] [address] [place] [address] Infect. Disease Consult Note Signed Patient: Addie Jean Baptiste MR#: [id number] : 1975 Acct:[id number] Age/Sex: 47 / F Adm Date: 3 Loc: Room: [address] [place] [address] Type: ADM INOo Attending Dr: Jeana Martini [...] me she was hospitalized in July at [facility] for 4 days for this. She apparently also seePatriciarMaris Box. On consulted due to this ulceration. Patient states it started as ablister that then popped. She is having a lot of pain and asked me for strongerpain medication. She is currently on IV Unasyn. CC: Jeana Martini MD Review of Systems Review of Systems All other systems reviewed & are negative unless noted below or in HPI [facility] Attestation Statement: The following information was validated [...] mg PO DAILY [facility] Stop: 08/20/23 09:39 Clonidine HCl (Clonidine 0.1 Mg Tablet) 0.1 mg PO Q4H PRN PRN Reason: Hypertension Stop: 08/20/23 03:40 Dextrose (Dextrose 50% In Water 25 Gm/50 Ml Syringe) 0 gm IV-PUSH PRN PRN PRN Reason: Hypoglycemia Stop: 08/20/23 03:40 Enoxaparin Sodium (Enoxaparin 40 Mg/0.4 Ml Syringe) 40 mg SUBCUT DAILY@1000 [facility] Stop: 08/20/23 09:59 Last Admin: 08/20/22 09:29 Dose: 40 mg Ergocalciferol (Ergocalciferol 1,250 Mcg (50,000 Units) Capsule) 1,250 mcg PO Q7D [facility] Stop: 08/20/23 09:44 Furosemide (Furosemide 20 Mg Tablet) 20 mg PO DAILY.8A [facility] Stop: 08/20/23 07:59 Last Admin: 08/20/22 09:26 Dose: 20 mg Glucose (Dextrose 40% Gel 15 Gm Tube) 0 gm PO PRN PRN PRN Reason: Hypoglycemia Stop: 08/20/23 03:40 Ampicillin Sodium/Sulbactam Sodium (Unasyn) 3 gm in 100 mls @ 200 mls/hr IV Q6HSCH Last Admin: 08/20/22 09:27 Dose: 200 mls/hr Levetiracetam (Levetiracetam 250 Mg Tablet) 750 mg PO BID [facility] Stop: 08/20/23 08:59 Last Admin: 08/20/22 08:24 Dose: 750 mg Levothyroxine Sodium (Levothyroxine 75 Mcg Tablet) 75 mcg PO DAILY@0630 [facility] Stop: 08/20/23 06:29 Last Admin: 08/20/22 06:15 Dose: 75 mcg Lisinopril (Lisinopril 40 Mg Tablet) 40 mg PO DAILY [facility] Stop: 08/20/23 08:59 Last Admin: 08/20/22 08:25 Dose: 40 mg Metformin HCl (Metformin 500 Mg Tablet) 1,000 mg PO BID.WITH.MEALS [facility] Stop: 08/20/23 07:59 Last Admin: 08/20/22 08:25 Dose: 1,000 mg Pantoprazole Sodium (Pantoprazole 40 Mg Tablet.Dr) 40 mg PO DAILY [facility] Stop: 08/21/23 08:59 Pregabalin (Pregabalin 150 Mg Capsule) 150 mg PO HS [facility] Stop: 02/16/23 03:44 Last Admin: 08/20/22 04:09 Dose: 150 mg Quetiapine Fumarate (Quetiapine Fumarate 200 Mg Tablet) 800 mg PO HS [facility] Stop: 08/20/23 03:59 Last Admin: 08/20/22 04:09 Dose: 800 mg Saccharomyces Boulardii (Saccharomyces Boulardii 250 Mg Capsule) 250 mg PO BID.WITH.MEALS [facility] Stop: 08/20/23 07:59 Last Admin: 08/20/22 08:26 [...] % (Auto) 64.7 Lymph % (Auto) 27.3 [place] % (Auto) 6.0 Eos % (Auto) 1.3 Baso % (Auto) 0.7 Nucleat RBC Rel Count 0.0 Neut # (Auto) 5.5 Lymph # (Auto) 2.3 Butler # (Auto) 0.5 Eos # (Auto) 0.1 [...] Color Urine Appearance Urine pH Ur Specific [place] Urine Protein Urine Glucose (UA) Urine Ketones [...] MPV Neut % (Auto) Lymph % (Auto) Butler % (Auto) Eos % (Auto) Baso % (Auto) Nucleat RBC Rel Count Neut # (Auto) Lymph # (Auto) Butler # (Auto) Eos # (Auto) Baso # [...] Appearance Clear Urine pH 6.5 Ur Specific [place] 1.017 Urine Protein 100 H Urine Glucose [...] % (Auto) 68.9 Lymph % (Auto) 22.6 Butler % (Auto) 6.9 Eos % (Auto) 1.1 Baso % (Auto) 0.5 Nucleat RBC Rel Count 0.2 Neut # (Auto) 6.2 Lymph # (Auto) 2.0 Butler # (Auto) 0.6 Eos # (Auto) 0.1 [...] Color Urine Appearance Urine pH Ur Specific [place] Urine Protein Urine Glucose (UA) Urine Ketones [...] MPV Neut % (Auto) Lymph % (Auto) Butler % (Auto) Eos % (Auto) Baso % (Auto) Nucleat RBC Rel Count Neut # (Auto) Lymph # (Auto) Butler # (Auto) Eos # (Auto) Baso # [...] Color Urine Appearance Urine pH Ur Specific [place] Urine Protein Urine Glucose (UA) Urine Ketones [...] MPV Neut % (Auto) Lymph % (Auto) [place] % (Auto) Eos % (Auto) Baso % (Auto) Nucleat RBC Rel Count Neut # (Auto) Lymph # (Auto) Butler # (Auto) Eos # (Auto) Baso # [...] Color Urine Appearance Urine pH Ur Specific [place] Urine Protein Urine Glucose (UA) Urine Ketones [...] <Electronically signed by MD Lawrence Kim> 08/20/22 1028 [facility] Work Phone: [phone]) [phone] Progress note Author Jeana Martini [facility] August 20, 2022 9:48am Note Date/Time August 20, 2022 9:4 8am [facility] [address] [place] [address] Hospitalist Progress Note Signed Patient: Addie Jean Baptiste MR#: [id number] : 1975 Acct:[id number] Age/Sex: 47 / F Adm Date: 3 Loc: 3T Room: [address] [place] [address] Type: ADM INOo Attending Dr: Jeana Martini [...] place, time and person, morbidly obese HEENT: [place] conjunctiva and NL buccal mucosa Neck: Supple, [...] subcu injection. Documented By: Jeana Martini MD 08/20/2246 Signed By: <Electronically signed by Jeana Martini MD> 08/20/2248 [facility] Work Phone: 1(316) [phone] History and physical note Author Ezekiel Mathew [facility] August 20, 2022 3:56am Note Date/Time August 20, 2022 3:5 6am [facility] [address] [place] [address] Hospitalist H&P Signed Patient: Addie Jean Baptiste MR#: [id number] : 1975 Acct:[id number] Age/Sex: 47 / F Adm Date: 3 Loc: Room: [address] [place] [address] Type: ADM INOo Attending Dr: Ezekiel Mathew [...] % (Auto) 27.3 % (.) 08/20/22 00:19 Butler % (Auto) 6.0 % (.) 08/20/22 00:19 Eos % (Auto) 1.3 % (.) 08/20/22 00:19 Baso % (Auto) 0.7 % (.) 08/20/22 00:19 Nucleat RBC Rel Count 0.0 /100 WBC (0-0.5) 08/20/22 00:19 Neut # (Auto) 5.5 x10E3/uL (1.8-7.7) 08/20/22 00:19 Lymph # (Auto) 2.3 x10E3/uL (1.00-4.8) 08/20/22 00:19 Butler # (Auto) 0.5 x10E3/uL (0.0-0.8) 08/20/22 00:19 [...] pH 6.5 (5.0-9.0) 08/20/22 01:07 Ur Specific [place] 1.017 (1.001-1.030) 08/20/22 01:07 Urine Protein 100 [...] She states that she does have a recreation specialist with Dr. Box. Since his partner Dr. [...] signed by Ezekiel Mathew DO> 08/20/22 0356 [facility] Work Phone: 1([phone]) 664-273003-28-2023 Hospital Discharge instructions Patient Education 08/19/2022 20:32:56 [...] and water are not available, 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 ?Change your dressing as told by your [...] antibiotic even if your condition improves. Take mvyg-ing-dadlxlo and prescription medicines only as told by [...] 02/17/2009 Document Revised: 08/29/2019 Document Reviewed: 11/25/2016 [employer] Patient Education 2020 [employer]. 08/19/2022 20:32:56 Type 2 Diabetes Mellitus, Self Care, Adult, Pcrq-vm-Atjf Type 2 Diabetes Mellitus, Self Care, Adult [...] oil, and canola oil. Meet with a fresh foods technician (dietitian). He or she can help you [...] for cuts, bruises, redness, blisters, or sores. Bullock your teeth and gums two times a day. Floss one or more times a day. Go to the dentist one or more times every 6 months. Stay at a healthy weight. General instructions Take peux-syc-qgvfaig and prescription medicines only as told by your doctor. Share your diabetes care plan with: ?Your work or school. ?People you live with. Carry a card or wear jewelry that says you have diabetes. Keep all follow-up visits as told by your doctor. This is important. Questions to ask your doctor Do I need to meet with a hand cooper helper? Where can I find a support group for people with diabetes? Where to find more information To learn more about diabetes, visit: [employer] Diabetes Association: www.diabetes.org Chinese Association of Diabetes Educators: www.diabeteseducator.org Summary When [...] 09/01/2016 Document Revised: 11/01/2018 Document Reviewed: 06/13/2016 [employer] Patient Education 2020 [employer]. Follow Up Care 08/19/2022 17:03:41 With:Pool Heath Address: [address] [place] [address] Business (1) When:08/22/2022 20:16:55 [facility]03-28-2023 Evaluation + Plan note Diagnostic Tests Pending * Blood Culture Charcoal 08/19/22 * Blood Culture Charcoal 08/19/22 * UA With Cult Reflex 08/19/22 * Wound Culture 08/19/22 Future Scheduled Tests Laboratory* Fecal WBC Lactoferrin 10/30/21 * Enteric Panel by PCR 10/30/21 Radiology* NM Myocardial Spect Rest/Stress 1 Day 12/16/21 * Echo Transthoracic Complete 09/03/21 [facility]01-09-2023 Hospital Discharge instructions Patient Education 06/02/2022 20:35:11 Seizure, Adult, Nzyr-fh-Qxrj Seizure, Adult A seizure is a sudden [...] Follow these instructions at home: Medicines Take omtm-fau-llqmame and prescription medicines only as told by [...] [place] ask your local DMV (department of [place]) when you can drive. Get plenty of [...] 10/27/2008 Document Revised: 07/29/2019 Document Reviewed: 07/29/2019 [employer] Patient Education 2020 [employer] 06/02/2022 20:35:11 Abdominal Pain, Adult, Teeg-pi-Whql Abdominal Pain, Adult Many things can cause belly (abdominal) pain. Most times, belly pain is not dangerous. Many cases of belly pain can be watched and treated at home. Sometimes, though, belly pain is serious. Your doctor will try to find the cause of your belly pain. Follow these instructions at home: Medicines Take tyhx-ldr-awatiin and prescription medicines only as told by [...] your belly pain for any changes. Take rdkc-xel-ascfncm and prescription medicines only as told by [...] 10/27/2008 Document Revised: 09/19/2019 Document Reviewed: 09/19/2019 [employer] Patient Education 2020 [employer]. Follow Up Care 06/02/2022 15:49:02 With:Pool Heath Address: [address] [place] [address] ELEN Higuera [phone] Business (1) When:06/05/2022 20:05:40 Comments:Take your medications as prescribed. Please follow-up with your primary care doctor in addition to your neurologist for further evaluation management. Please return to ED for any new or worsening symptoms. [facility]01-09-2023 Evaluation + Plan noteExtracted from: Title:ED Note Author:Jose Miguel Burciaga, Bridgett Velasquez te:06/02/22 1. Recurrent seizures (G40.9 09: Epilepsy, [...] Abdomen/Pelvis w/o Contrast eGFR Hepatic Function Panel Keppra Lvl Lipase Level PT & PTT UA With [...] or worsening symptoms. Diagnostic Tests Pending * Keppra Lvl 06/02/22 Future Scheduled Tests Laboratory* Fecal WBC Lactoferrin 10/30/21 * HgbA1c 07/29/21 * Enteric Panel by PCR 10/30/21 * Thyroid Stimulating Hormone 07/29/21 Radiology* NM Myocardial Spect Rest/Stress 1 Day 12/16/21 * Echo Transthoracic Complete 09/03/21 [facility]12-22-2022 Hospital Discharge instructions Patient Education 05/15/2022 16:59:08 Paronychia, Biav-xk-Hqyh Paronychia Paronychia is an infection of the [...] cannot use soap and water, 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 ?Change your bandage as told by your doctor. If you had a fluid-filled bump and your doctor drained it, check the area every day for signs of infection. Check for: ?Redness, swelling, or pain. ?Fluid or blood. ?Warmth. ?Pus or a bad smell. Medicines Take msyg-mvl-xncssam and prescription medicines only as told by [...] ?Wear gloves if your hands might touch cio or chemicals. ?Avoid injuring your nails or [...] 04/29/2010 Document Revised: 05/28/2018 Document Reviewed: 05/24/2018 [employer] Patient Education 2020 [employer]. Follow Up Care 05/15/2022 16:12:54 With:Pool Heath Address: [address] [place] [address] Business (1) When:Within 3 Day(s) [facility]12-22-2022 Evaluation + Plan noteExtracted from: Title:ED Note Author:Heather Ortega PA-C [place] e:05/15/22 1. Paronychia, finger (L03.0 19: Cellulitis of unspecified finger) Orders: sulfamethoxazole-trimethoprim, 1 tab(s), Oral, BID for 7 day(s), 14 tab(s), Refill(s) 0, [facility], 157, cm, 05/15/22 16:23:00 EST, [...] Day 12/16/21 * Echo Transthoracic Complete 09/03/21 [facility]11-16-2022 Evaluation + Plan noteExtracted from: Title:Discharge Note Author:Pepe Echols MD Date:04/09/22 Discharge To, Anticipated II - Home [...] QID, PRN ergocalciferol 50,000 intl units Cap, 80629 International_Unit= 1 cap(s), Oral, q7day Keppra 250 [...] SAMUEL Jaimes Within 2 to 4 weeks [address] [place] [address]- Additional Instructions: Radha Dias DO Within 2 to 4 days [address] [place] [address]- Additional Instructions: Diabetes Mellitus and Nutrition, Adult Diabetes Mellitus and Foot Care Diabetes Mellitus and Exercise Extracted from: Title:Discharge Note Author:Pepe Echols MD Date:04/08/22 Discharge To, Anticipated II - Home [...] Oral, Daily ergocalciferol 50,000 intl units Cap, 28853 International_Unit= 1 cap(s), Oral, q7day insulin glargine [...] MD, [facility]U Within 2 to 4 weeks [address] [place] [address]- Additional Instructions: Radha Disa DO Within 2 to 4 days [address] [place] [address]- Additional Instructions: Diabetes Mellitus and Nutrition, Adult Diabetes Mellitus and Foot Care Diabetes Mellitus and Exercise Addendum by Kinza STEVENS [facility] on April 08, 2022 13:12:55 EST Add [...] extremity. Patient walks with FWW Addendum by Kinza STEVENS [facility] on April 08, 2022 14:09:08 EST For [...] of symptom onset she was evaluated at [facility] and had a stroke work-up, results of which are unclear. CT head here does not show any obvious areas of subacute ischemia. Could also consider lumbar radiculopathy as a potential explanation given her known lumbar spondylosis. Nondermatomal sensory loss and nonmyotomal pattern of weakness. Very questionable effort. 3. Chronic diabetic polyneuropathy. PLAN: 1. Obtaining hospital records from [facility] to ensure they looked into stroke as [...] were abnormal. An additional EEG will not exchange specialist. 1. DKA (diabetic ketoacidosis) (E11.10: Type 2 [...] of symptom onset she was evaluated at [facility] and had a stroke work-up, results of which are unclear. CT head here does not show any obvious areas of subacute ischemia. Could also consider lumbar radiculopathy as a potential explanation given her known lumbar spondylosis. Nondermatomal sensory loss and nonmyotomal pattern of weakness. 3. Chronic diabetic polyneuropathy. PLAN: 1. Obtaining hospital records from [facility] 2. Continue the Keppra at 750 mg [...] were abnormal. An additional EEG will not exchange specialist. 1. DKA (diabetic ketoacidosis) (E11.10: Type 2 [...] 2 diabetes mellitus with ketoacidosis without coma) Novelty to be mild versus nonketotic hyperosmolar state [...] deficits) Patient states she was hospitalized at [facility] with right leg weakness and numbness 3 weeks ago. Curiously she states she had been on aspirin previously and there was no change in her therapy. We will obtain records from [facility] in regards to her recent hospitalization. Continue [...] she did have an ICD placed at [facility] in 2019 denies any recent discharge of [...] Level myStation Chronic Obstructive Pulmonary Disease COPD (ADRIANE:[id number]) Notify Provider Vital Signs Notify Provider Vital [...] Day 12/16/21 * Echo Transthoracic Complete 09/03/21 [facility]11-14-2022 Hospital Discharge instructions Patient Education 04/07/2022 07:24:34 [...] that you work with a diet and community nutrition educator (dietitian) tomake a meal plan that is [...] care provider. Work with a counselor or hand cooper helper to identify strategies to manage stress and any emotional and social challenges. Questions to ask a health care provider Do I need to meet with a hand cooper helper? Do I need to meet with a dietitian? What number can I call if I have questions? When are the best times to check my blood glucose? Where to find more information: Chinese Diabetes Association: diabetes.org Academy of Nutrition and Dietetics: www.eatright.org National [place] of Diabetes and Digestive and Kidney Diseases (NIH): www.niddk.nih.gov Summary A healthy meal plan will help you control your blood glucose and maintain a healthy lifestyle. Working with a diet and community nutrition educator (dietitian) can help you make a meal [...] 02/05/2006 Document Revised: 04/23/2018 Document Reviewed: 06/15/2017 [employer] Patient Education 2020 [employer]ax. 04/07/2022 07:24:34 Diabetes Mellitus and Foot Care Diabetes Mellitus and Foot Care Foot care is an important part of your health, especially when you have diabetes. Diabetes may cause you to have problems because of poor blood flow (circulation) to your feet and legs, which can cause your skin to: Become thinner and glue drier operator. Break more easily. Heal more slowly. Peel [...] 05/08/2001 Document Revised: 06/23/2018 Document Reviewed: 06/12/2017 [employer] Patient Education 2020 [employer]. 04/07/2022 07:24:32 Diabetes Mellitus and Exercise Diabetes [...] activity plan? Your health care provider or board certified behavioral analyst can help you make a plan for [...] and stress. Your health care provider or board certified behavioral analyst can help you make a plan for [...] 07/31/2004 Document Revised: 12/03/2017 Document Reviewed: 10/20/2016 [employer] Patient Education 2020 [employer]. Follow Up Care 04/06/2022 20:30:13 With:Polo Bo MD, [facility] Address: [address] [place] [address] [place] [address] [facility] (1) When:05/01/2022 12:40:00 With:Radha Dias DO Address: [address] , [address] [address]- When:04/23/2022 12:45:00 [facility]10-06-2022 Hospital Discharge instructions Patient Education 02/27/2022 17:35:47 Nonspecific Chest Pain, Adult, Dqzq-du-Gmia Nonspecific Chest Pain Chest pain can be [...] Follow these instructions at home: Medicines Take yipy-fvv-hbwcwte and prescription medicines only as told by [...] ?Eating a heart-healthy diet. A diet and community nutrition educator (dietitian) can help you to learn healthy [...] 10/27/2008 Document Revised: 11/11/2018 Document Reviewed: 11/11/2018 [employer] Patient Education 2020 [employer] 02/27/2022 17:35:47 Seizure, Adult, Tkao-mq-Flid Seizure, Adult A seizure is a sudden [...] Follow these instructions at home: Medicines Take jmud-adg-inehltu and prescription medicines only as told by [...] [place]., ask your local DMV (department of e[place]ukTuk) when you can drive. Get plenty of [...] 10/27/2008 Document Revised: 07/29/2019 Document Reviewed: 07/29/2019 [employer] Patient Education 2019 [employer]. Follow Up Care 02/27/2022 11:56:29 With:[facility] with [facility] next [facility] Address:Unknown When: Unknown With:Radha Dias Address: [address] [facility] [address] [place] [id number] Business (1) When:Within 3 Day(s) [facility]10-06-2022 Evaluation + Plan noteExtracted from: Title:ED Note [...] BID, # 60 tab(s), Refills(s) 0, Pharmacy: [facility], 157, cm, 02/27/22 12:02:00 EDT, [...] Day 12/16/21 * Echo Transthoracic Complete 09/03/21 [facility]09-30-2022 Hospital Discharge instructions Patient Education 02/21/2022 15:44:29 [...] and water are not available, 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 Keep the wound clean and dry. If [...] falls off the skin. General instructions Take jlqf-iuk-dlqgykq and prescription medicines only as told by [...] 05/11/2006 Document Revised: 07/09/2018 Document Reviewed: 05/31/2018 [employer] Patient Education 2020 [employer]. Follow Up Care 02/21/2022 14:51:18 With:Radha Dias Address: [address], [address] [address]- Business (1) When:02/24/2022 15:15:47 Comments:Follow-up with your primary care provider in 3 to 5 days. If symptoms worsen, do not improve, or new symptoms arise please report back to emergency department for further evaluation. Sutures to be removed in 10 days. [facility]09-02-2022 Hospital Discharge instructions Patient Education 01/24/2022 14:32:12 [...] water added (diluted fruit juice). Eat bland, cflq-fr-cabdkx foods in small amounts as you are able. These foods include bananas, applesauce, rice, lean meats, toast, and crackers. Avoid fluids that contain a lot of sugar or caffeine, such as energy drinks, sports drinks, and soda. Avoid alcohol. Avoid spicy or fatty foods. General instructions Take jher-aps-dclefxz and prescription medicines only as told by your health care provider. Drink enough fluid to keep your urine pale yellow. Wash your hands often using soap and water. If soap and water are not available, 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 Make sure that all people in your [...] eating and drinking to prevent dehydration. Take vwcw-epu-vlwiuep and prescription medicines only as told by [...] 05/11/2006 Document Revised: 09/02/2019 Document Reviewed: 10/19/2018 [employer] Patient Education 2020 [employer]. 01/24/2022 14:32:12 Diarrhea, Adult Diarrhea, Adult Diarrhea [...] oral rehydration solution (ORS). This is an vcmg-ytl-jxbcfxz medicine that helps return your body to [...] drinks, sports drinks, and soda. Eat bland, ssss-hr-xemsco foods in small amounts as you are able. These foods include bananas, applesauce, rice, lean meats, toast, and crackers. Avoid alcohol. Avoid spicy or fatty foods. Medicines Take zahw-tcw-ogthrch and prescription medicines only as told by your health care provider. If you were prescribed an antibiotic medicine, take it as told by your health care provider. Do notstop using the antibiotic even if you start to feel better. General instructions Wash your hands often using soap and water. If soap and water are not available, use a hand electrolysis needle operator. Others in the household should wash their [...] soap and water are not available, usehand electrolysis needle operator. Contact a health care provider if your diarrhea gets worse or you have new symptoms. Get help right away if you have signs of dehydration. This information is not intended to replace advice given to you by your health care provider. Make sure you discuss any questions you have with your health care provider. Document Released: 05/01/2003 Document Revised: 09/27/2019 Document Reviewed: 10/15/2018 [employer] Patient Education 2020 [employer]. 01/24/2022 14:32:12 Acute Pain, Adult Acute Pain, [...] Follow these instructions at home: Medicines Take siin-rof-xeeugkc and prescription medicines only as told by [...] pain is severe. ?Do not take other vlwm-php-jkbagko pain medicines in addition to prescription pain [...] grains, and fresh fruits and vegetables. ?Take eoya-ujn-ceqlpzp or prescription medicines. ?Limit foods that are [...] or you are no longer ill. Take thgt-fux-vswlcmy and prescription medicines only as told by [...] 05/25/2016 Document Revised: 09/26/2019 Document Reviewed: 09/26/2019 [employer] Patient Education 2019 [employer]. Follow Up Care 01/24/2022 10:45:45 With:Radha Dias Address: [address], [facility] [address] [place] [address]- [facility] (1) When:01/27/2022 14:08:11 [facility]08-18-2022 Hospital Discharge instructions Patient Education 01/09/2022 17:03:20 [...] exercise. Managing pain, stiffness, and swelling Take xvyt-lfd-bktnlmk and prescription medicines only as told by [...] 05/11/2006 Document Revised: 04/23/2018 Document Reviewed: 06/10/2017 [employer] Patient Education 2020 [employer] 01/09/2022 17:03:20 Chest Wall Pain Chest Wall [...] are safe for you. General instructions Take pltn-bys-juziujs and prescription medicines only as told by [...] 05/11/2006 Document Revised: 11/11/2018 Document Reviewed: 11/11/2018 [employer] Patient Education 2020 [employer]. Follow Up Care 01/09/2022 12:14:58 With:Kirk Abbott Address: [address] [place] [address]- Business (1) When:1 to 2 weeks Comments:Call for [...] scheduling to schedule a 2-day stress test. Wind Plant Manager evaluated you during your hospital stay and they cleared you for discharge. Please follow-up with talent development consultant after stress test is complete. Please do not delay the stress test any further. Keep taking the medications as you are taking as we are not changing anything.[facility]. [facility] Evaluation + Plan noteExtracted from: Title:Consult Note [...] prophylactic measures, unspecified) Extracted from: Title:Discharge Note Author:LISA STEVENS, Juan Velasquez te:01/09/22 Discharged to - Home with family [...] Kirk Abbott Within 1 to [address] [place] [id number] [facility] (1) Additional Instructions: Call for followup appointment [...] scheduling to schedule a 2-day stress test. Wind Plant Manager evaluated you during your hospital stay and they cleared you for discharge. Please follow-up with talent development consultant after stress test is complete. Please do not delay the stress test any further. Keep taking the medications as you are taking as we are not changing anything. Dr. Juan Gonzalez Hospitalist at [facility] Musculoskeletal Pain Chest Wall Pain Extracted from: [...] times, Routine, Start date 01/09/22 14:30:00 EDT, 01/09/22 14:30:00 EDT ondansetron, 4 mg = 2 [...] made to ensure accuracy, however, inadvertently computerized spinning lathe operator hydraulic mistakes may be present. Dr. Juan Gonzalez Hospitalist at [facility] Extracted from: Title:ED Note Author:Jose Miguel Burciaga, [...] Day 12/16/21 * Echo Transthoracic Complete 09/03/21 [facility]07-21-2022 Hospital Discharge instructions Patient Education 12/12/2021 17:14:21 [...] 06/18/2005 Document Revised: 04/23/2018 Document Reviewed: 08/06/2017 [employer] Patient Education 2020 [employer]. 12/12/2021 17:14:19 BMI for Adults BMI for [...] height. This can be done either in [place] ([place] or metric measurements. Note that charts are available to help you find your BMI quickly and easily without having to do these calculations yourself. To calculate your BMI in [place] measurements, your health care provider will: [...] medical problems. BMI can be measured using [place] measurements or metric measurements. To interpret your [...] 01/20/2005 Document Revised: 04/23/2018 Document Reviewed: 03/24/2018 [employer] Patient Education 2020 [employer]ax. 12/12/2021 17:04:18 Lactose Intolerance, Adult Lactose Intolerance, [...] you eat milk products. Lactase tablets are mrxf-izm-uyfkxka medicines that help to improve lactose digestion. [...] contain: ?Lactose. ?Milk solids. ?Casein. ?Whey. Take frbq-ekc-oqrcpob and prescription medicines (including lactase tablets) only as told by your health care provider. If you stop eating and drinking dairy products (eliminate dairy from your diet), make sure to get enough protein, calcium, and vitamin D from other foods. Work with your health care provider or a diet and community nutrition educator (dietitian) to make sure you get enough [...] 05/11/2006 Document Revised: 04/23/2018 Document Reviewed: 12/25/2017 [employer] Patient Education 2020 [employer]. Follow Up Care 12/12/2021 12:11:17 With:Breanna Gu CNP Address: When: only if needed [facility] Primary [facility] 07-17-2022 Hospital Discharge instructions Patient [...] hard liquor (44 mL). General instructions Take dlaa-kzp-jiufgzo and prescription medicines only as told by your health care provider. Practice techniques for relaxation and managing anxiety at times you are not challenged by social anxiety. Return to social activities using techniques you have learned, as you feel ready to do so. Avoid caffeine and certain szmb-ljz-boxguek cold medicines. These may make you feel worse. Ask yourpharmacists which medicines to avoid. Keep all follow-up visits as told by your health care provider. This is important. Where to find more information National [place] on Mental Illness (AVA): https://www.ava.org Social Anxiety [...] 04/09/2006 Document Revised: 10/12/2019 Document Reviewed: 10/12/2019 [employer] Patient Education 2019 [employer]. 12/08/2021 14:29:40 Seizure, Adult Seizure, Adult A [...] of having seen or heard something before (lauren jordan). Odd tastes or smells. Changes in vision, [...] Follow these instructions at home: Medicines Take lryz-iei-yjzrphc and prescription medicines only as told by [...] check with your local DMV (department of motor vehicles) to find out aboutlocal driving laws. Each [...] medicines are used to treat seizures. Take vpjg-flf-wrdjkyo and prescription medicines only astold by your health care provider. This information is not intended to replace advice given to you by your health care provider. Make sure you discuss any questions you have with your health care provider. Document Released: 05/08/2001 Document Revised: 07/29/2019 Document Reviewed: 07/29/2019 [employer] Patient Education 2019 [employer]Vax. Follow Up Care 12/08/2021 09:53:20 With:Polo Bo Address: [address] [place] [address]- Business (1) When:12/11/2021 13:49:13 Comments:If you do not have a neurologist, follow-up with Dr. Bo. With:Breanna Gu Address: [address] [place] [address] [address] [place] [address] [phone] Business (1) When:12/11/2021 13:48:53 Comments:Follow-up with your primary care provider in 3 to 5 days. If symptoms worsen, do not improve, or new symptoms arise please report back to emergency department for further evaluation. Follow-up with your neurologist immediately. [facility]06-15-2022 Evaluation + Plan noteExtracted from: Title:Discharge Note [...] cap(s), Oral, Daily With When Contact Information Breanna Gu In 0 days Additional Instructions: Extracted from: Title:Admission H & P Author:Evelyn STEVENS, Ahmad Date:11/04/21 UTI -Failed out patient treatment, will [...] Date:11/14/2021 10:00:00 AM Scheduled Provider:Breanna Gu CNP Location:[facility] Appointment Type: ER/Hospital Follow Up Appointment Date:11/14/2021 12:15:00 PM Scheduled Provider: [facility] Type:NM Myocard Spect Multi Rest/Stress-Res Appointment Date:11/14/2021 01:15:00 PM Scheduled Provider: [facility] Appointment Type:NM Myocard Spect Multi Rest/Stress - R Appointment Date:11/14/2021 01:45:00 PM Scheduled Provider: [facility] Appointment Type:NM Myocard Spect Multi Rest/Stress-Str Appointment Date:11/14/2021 02:45:00 PM Scheduled Provider: [facility] Appointment Type:NM Myocar Spect Multi Rest/Stress - St Appointment Date:11/20/2021 11:45:00 AM Scheduled Provider:Yuriy Fraser MD [facility] Type:Cardiology Follow Up (FT) Appointment Date:01/01/2022 02:00:00 PM Scheduled Provider:Breanna Gu CNP Location:[facility] Appointment Type: Open Future Scheduled Tests Laboratory* Fecal WBC Lactoferrin 10/30/21 * HgbA1c 07/29/21 * Enteric Panel by PCR 10/30/21 * Thyroid Stimulating Hormone 07/29/21 Radiology* NM Myocardial Spect Rest/Stress 1 Day 11/14/21 * Echo Transthoracic Complete 09/03/21 [facility]06-15-2022 Hospital Discharge instructions Patient Education 11/06/2021 11:33:32 Urinary Tract Infection, Adult, Hxti-el-Nezk Urinary Tract Infection, Adult A urinary tract [...] Follow these instructions at home: Medicines Take vnov-uar-ukgurqq and prescription medicines only as told by [...] 10/27/2008 Document Revised: 04/28/2019 Document Reviewed: 11/18/2018 [employer] Patient Education 2020 [employer]ax. 11/06/2021 11:33:32 Urinary Tract Infection, Adult, Pizm-ji-Diot Urinary Tract Infection, Adult A urinary tract [...] Follow these instructions at home: Medicines Take uuab-gca-xozcpsr and prescription medicines only as told by [...] 10/27/2008 Document Revised: 04/28/2019 Document Reviewed: 11/18/2018 [employer] Patient Education 2020 In[employer]Vax. 11/06/2021 11:33:28 Antibiotic Medicine, Adult, Oshk-bi-Zkrf Antibiotic Medicine, Adult Antibiotic medicines treat infections [...] 02/17/2009 Document Revised: 06/17/2019 Document Reviewed: 05/13/2017 [employer] Patient Education 2020 [employer]Vax. 11/06/2021 11:33:28 Antibiotic Medicine, Adult, Rcvt-su-Habu Antibiotic Medicine, Adult Antibiotic medicines treat infections [...] 02/17/2009 Document Revised: 06/17/2019 Document Reviewed: 05/13/2017 [employer] Patient Education 2020 [employer]. Follow Up Care 11/04/2021 11:24:24 With:Breanna Gu Address:Unknown When: Unknown [facility]06-08-2022 Evaluation + Plan note Future Scheduled Tests Laboratory* Fecal WBC Lactoferrin 10/30/21 * HgbA1c 07/29/21 * Enteric Panel by PCR 10/30/21 * Thyroid Stimulating Hormone 07/29/21 Radiology* NM Myocardial Spect Rest/Stress 1 Day 12/16/21 * Echo Transthoracic Complete 09/03/21 [facility] [phone] Evaluation + Plan note Future Scheduled Tests Laboratory* Fecal WBC Lactoferrin 10/30/21 * Enteric Panel by PCR 10/30/21 Radiology* NM Myocardial Spect Rest/Stress 1 Day 12/16/21 * Echo Transthoracic Complete 09/03/21 [facility]05-18-2022 Hospital Discharge instructions Patient Education 10/09/2021 17:53:37 [...] Follow these instructions at home: Medicines Take mych-dcw-uwmiefk and prescription medicines only as told by [...] and water are not available, 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 Avoid contact with people who have cold [...] 06/18/2005 Document Revised: 03/24/2019 Document Reviewed: 10/29/2016 [employer] Patient Education 2020 [employer]ax. Follow Up Care 10/09/2021 15:26:41 With:Breanna Gu [...] legs, or any new or worsening symptoms. [facility]05-09-2022 Hospital Discharge instructions Patient Education 09/30/2021 14:51:24 [...] ?Hypothyroidism. ?Polycystic ovarian syndrome (PCOS). ?Binge-eating disorder. ?Jorge syndrome. Taking certain medicines, such as steroids, [...] food choices, such as grocery stores and farmers' markets. What are the signs or symptoms? The [...] and how much exercise you get. Take gogj-tdb-smfgxqf and prescription medicines only as told by [...] 06/18/2005 Document Revised: 01/13/2019 Document Reviewed: 01/13/2019 [employer] Patient Education 2020 [employer] 09/30/2021 14:51:20 Hypothyroidism Hypothyroidism Hypothyroidism is when [...] away. Follow these instructions at home: Take fxnj-qoh-zbdtuyv and prescription medicines only as told by [...] 05/11/2006 Document Revised: 04/23/2018 Document Reviewed: 04/21/2018 [employer] Patient Education 2020 [employer]. 09/30/2021 14:51:16 Preventing Diabetes Mellitus Complications Preventing [...] lead to tooth loss. To prevent this: [place] your teeth twice a day. Floss at [...] 01/27/2012 Document Revised: 08/09/2018 Document Reviewed: 02/07/2017 [employer] Patient Education 2020 [employer]. 09/30/2021 14:51:12 General Anesthesia, Adult General Anesthesia, [...] including vitamins, herbs, eye drops, creams, and mbca-sew-sbpxend medicines. Any problems you or family members [...] provider tells you to take them. Taking lrff-kme-wzaifre medicines, vitamins, herbs, and supplements. Do not [...] 08/17/2008 Document Revised: 09/28/2018 Document Reviewed: 12/25/2017 [employer] Patient Education 2020 [employer]. [facility] 01-21-2022 Evaluation note* Encounter Date [...] Patient care instructions given in writting by [facility] Care At Home document. [employer] Other Consult note Author Lawrence Kim [facility] August 20, 2022 10:27am Note Date/Time August 20, 2022 10: 26am [facility] [address] [place] [address] Infect. Disease Consult Note Signed Patient: Addie Jean Baptiste MR#: [id number] : 1975 Acct:[id number] Age/Sex: 47 / F Adm Date: 3 Loc: 3T Room: [address] [place] [address] Type: ADM INOo Attending Dr: Jeana Martini [...] me she was hospitalized in July at [place] for 4 days for this. She apparently also seePatriciarMaris Box. On consulted due to this ulceration. Patient states it started as ablister that then popped. She is having a lot of pain and asked me for strongerpain medication. She is currently on IV Unasyn. CC: Jeana Martini MD Review of Systems Review of Systems All other systems reviewed & are negative unless noted below or in HPI [facility] Attestation Statement: The following information was validated [...] 5 Mg Tablet) 5 mg PO DAILY [facility] Stop: 08/20/23 09:39 Clonidine HCl (Clonidine 0.1 Mg Tablet) 0.1 mg PO Q4H PRN PRN Reason: Hypertension Stop: 08/20/23 03:40 Dextrose (Dextrose 50% In Water 25 Gm/50 Ml Syringe) 0 gm IV-PUSH PRN PRN PRN Reason: Hypoglycemia Stop: 08/20/23 03:40 Enoxaparin Sodium (Enoxaparin 40 Mg/0.4 Ml Syringe) 40 mg SUBCUT DAILY@1000 [facility] Stop: 08/20/23 09:59 Last Admin: 08/20/22 09:29 Dose: 40 mg Ergocalciferol (Ergocalciferol 1,250 Mcg (50,000 Units) Capsule) 1,250 mcg PO Q7D [facility] Stop: 08/20/23 09:44 Furosemide (Furosemide 20 Mg Tablet) 20 mg PO DAILY.8A [facility] Stop: 08/20/23 07:59 Last Admin: 08/20/22 09:26 Dose: 20 mg Glucose (Dextrose 40% Gel 15 Gm Tube) 0 gm PO PRN PRN PRN Reason: Hypoglycemia Stop: 08/20/23 03:40 Ampicillin Sodium/Sulbactam Sodium (Unasyn) 3 gm in 100 mls @ 200 mls/hr IV Q6HSCH Last Admin: 08/20/22 09:27 Dose: 200 mls/hr Levetiracetam (Levetiracetam 250 Mg Tablet) 750 mg PO BID [facility] Stop: 08/20/23 08:59 Last Admin: 08/20/22 08:24 Dose: 750 mg Levothyroxine Sodium (Levothyroxine 75 Mcg Tablet) 75 mcg PO DAILY@0630 [facility] Stop: 08/20/23 06:29 Last Admin: 08/20/22 06:15 Dose: 75 mcg Lisinopril (Lisinopril 40 Mg Tablet) 40 mg PO DAILY [facility] Stop: 08/20/23 08:59 Last Admin: 08/20/22 08:25 Dose: 40 mg Metformin HCl (Metformin 500 Mg Tablet) 1,000 mg PO BID.WITH.MEALS [facility] Stop: 08/20/23 07:59 Last Admin: 08/20/22 08:25 Dose: 1,000 mg Pantoprazole Sodium (Pantoprazole 40 Mg Tablet.Dr) 40 mg PO DAILY [facility] Stop: 08/21/23 08:59 Pregabalin (Pregabalin 150 Mg Capsule) 150 mg PO HS [facility] Stop: 02/16/23 03:44 Last Admin: 08/20/22 04:09 Dose: 150 mg Quetiapine Fumarate (Quetiapine Fumarate 200 Mg Tablet) 800 mg PO HS [facility] Stop: 08/20/23 03:59 Last Admin: 08/20/22 04:09 Dose: 800 mg Saccharomyces Boulardii (Saccharomyces Boulardii 250 Mg Capsule) 250 mg PO BID.WITH.MEALS [facility] Stop: 08/20/23 07:59 Last Admin: 08/20/22 08:26 [...] % (Auto) 64.7 Lymph % (Auto) 27.3 [place] % (Auto) 6.0 Eos % (Auto) 1.3 Baso % (Auto) 0.7 Nucleat RBC Rel Count 0.0 Neut # (Auto) 5.5 Lymph # (Auto) 2.3 Butler # (Auto) 0.5 Eos # (Auto) 0.1 [...] Color Urine Appearance Urine pH Ur Specific [place] Urine Protein Urine Glucose (UA) Urine Ketones [...] MPV Neut % (Auto) Lymph % (Auto) [place] % (Auto) Eos % (Auto) Baso % (Auto) Nucleat RBC Rel Count Neut # (Auto) Lymph # (Auto) Butler # (Auto) Eos # (Auto) Baso # [...] Appearance Clear Urine pH 6.5 Ur Specific [place] 1.017 Urine Protein 100 H Urine Glucose [...] % (Auto) 68.9 Lymph % (Auto) 22.6 [place] % (Auto) 6.9 Eos % (Auto) 1.1 Baso % (Auto) 0.5 Nucleat RBC Rel Count 0.2 Neut # (Auto) 6.2 Lymph # (Auto) 2.0 Butler # (Auto) 0.6 Eos # (Auto) 0.1 [...] Color Urine Appearance Urine pH Ur Specific [place] Urine Protein Urine Glucose (UA) Urine Ketones [...] MPV Neut % (Auto) Lymph % (Auto) Butler % (Auto) Eos % (Auto) Baso % (Auto) Nucleat RBC Rel Count Neut # (Auto) Lymph # (Auto) [place] # (Auto) Eos # (Auto) Baso # [...] Color Urine Appearance Urine pH Ur Specific [place] Urine Protein Urine Glucose (UA) Urine Ketones [...] MPV Neut % (Auto) Lymph % (Auto) [place] % (Auto) Eos % (Auto) Baso % (Auto) Nucleat RBC Rel Count Neut # (Auto) Lymph # (Auto) Butler # (Auto) Eos # (Auto) Baso # [...] Color Urine Appearance Urine pH Ur Specific [place] Urine Protein Urine Glucose (UA) Urine Ketones [...] antibiotic. Documented By: Lawrence Kim MD 08/20/22 102 Signed By: <Electronically signed by MD Lawrence Kim> 08/20/22 1029 [facility] Work Phone: Consult note Author Swapnil Castillo [facility] August 20, 2022 1:14pm Note Date/Time August 20, 2022 1:1 3pm [facility] [address] [place] [address] Podiatry Consult Note Signed Patient: Addie Jean Baptiste MR#: [id number] : 1975 Acct:[id number] Age/Sex: 47 / F Adm Date: 3 Loc: Room: [address] [place] [address] Type: ADM IN Attending Dr: Jeana Martini [...] <Electronically signed by LUPE Castillo> 08/20/22 1314 [facility] Work Phone: Consult note Author Shameka Romero [facility] August 21, 2022 4:02pm Note Date/Time August 21, 2022 4:0 0pm [facility] [address] [place] [address] Vascular Surgery Consult Note Signed Patient: Addie Jean Baptiste MR#: [id number] : 1975 Acct:[id number] Age/Sex: 47 / F Adm Date: 3 Loc: Room: [address] [place] [address] Type: ADM IN Attending Dr: Jeana Martini [...] % (Auto) 69.4 Lymph % (Auto) 20.6 Butler % (Auto) 7.4 Eos % (Auto) 1.8 Baso % (Auto) 0.8 Nucleat RBC Rel Count 0.0 Neut # (Auto) 5.7 Lymph # (Auto) 1.7 Butler # (Auto) 0.6 Eos # (Auto) 0.2 [...] MPV Neut % (Auto) Lymph % (Auto) [place] % (Auto) Eos % (Auto) Baso % (Auto) Nucleat RBC Rel Count Neut # (Auto) Lymph # (Auto) Butler # (Auto) Eos # (Auto) Baso # [...] Acute Documented By: Shameka Romero MD 08/21/22 1559 Signed By: <Electronically signed by Shameka Romero MD> 08/21/22 1602 [facility] Work Phone: Discharge summary Author Jeana Martini [facility] August 22, 2022 1:35pm Note Date/Time August 22, 2022 1:3 0pm [facility] [address] [place] [address] Discharge Summary Signed Patient: Addie Jean Baptiste MR#: [id number] : 1975 Acct:[id number] Age/Sex: 47 / F Adm Date: 3 Loc: Room: [address] [place] [address]: Jeana Martini MD Copies to: Laurent Franco FINANCIAL RECORDING CLERKCheC Jeana Martini MD~ Providers Date of Discharge: 08/22/22 [...] on intravenous antibiotic Patient was seen by recreation specialist who recommended and performed bedside incision and [...] place, time and person, morbidly obese HEENT: [place] conjunctiva and NL buccal mucosa Neck: Supple, [...] ask your primary care provider to obtain [facility] records entirely to follow up on all of the abnormal physical, laboratory, and imaging findings that I have not addressed. Please follow-up with Dr. Romero to evaluate your circulation Please return back to the emergency room or seek medical attention if your symptoms worsen or return. Discharging you from [facility] does not mean that your [...] to 2 weeks. Please call for appointment.) [facility] [Physician] - 08/25/22 10:15 am (Follow-up with your Primary Care Provider, call office to reschedule if needed. ) Documented By: Jeana Martini MD 08/22/22 1325 Signed By: <Electronically signed by Jeana Martini MD> 08/22/22 1335 [facility] Work Phone: Evaluation + Plan note Future Appointments Appointment Date:09/02/2021 02:45:00 PM Scheduled Provider:Kirk Abbott MD Location:[facility] Appointment Type:Cardiology New Patient (FT) Appointment Date:10/30/2021 03:40:00 PM Scheduled Provider:Breanna Gu CNP Location:[facility] Appointment Type:FM Open Future Scheduled Tests Laboratory* HgbA1c 07/29/21 * Microalbumin Level Urine 07/29/21 * CBC w/ Auto Diff 07/29/21 * Comprehensive Metabolic Panel 07/29/21 * Lipid Panel 07/29/21 * Thyroid Stimulating Hormone [facility]21 [facility] Appointment Date:10/15/2021 01:00:00 PM Scheduled Provider:Nancy GUTIERREZ CNP [facility] Type:Cardiology Follow Up (FT) Appointment Date:10/30/2021 03:40:00 PM Scheduled Provider:Breanna Gu CNP Location:[facility] Appointment Type:FM Open Future Scheduled Tests Laboratory* HgbA1c 07/29/21 * Microalbumin Level Urine 07/29/21 * CBC w/ Auto Diff 07/29/21 * Comprehensive Metabolic Panel 07/29/21 * Lipid Panel 07/29/21 * Thyroid Stimulating Hormone 07/29/21 [facility] App[facility]ments Appointment Date:09/30/2021 02:00:00 PM Scheduled Provider:Breanna Gu CNP Location:[facility] Appointment Type:FM Open Appointment Date:10/15/2021 01:00:00 PM Scheduled Provider:Nancy GUTIERREZ CNP [facility] Type:Cardiology Follow Up (FT) Appointment Date:10/30/2021 03:40:00 PM Scheduled Provider:Breanna Gu CNP Location:[facility] Appointment Type:FM Open Future Scheduled Tests Laboratory* HgbA1c 07/29/21 * Microalbumin Level Urine 07/29/21 * CBC w/ Auto Diff 07/29/21 * Comprehensive Metabolic Panel 07/29/21 * Lipid Panel 07/29/21 * Thyroid Stimulating Hormone 07/29/21 Radiology* Echo Transthoracic [facility] App[facility]ments Appointment Date:10/15/2021 01:00:00 PM Scheduled Provider:Nancy GUTIERREZ CNP [facility] Type:Cardiology Follow Up (FT) Appointment Date:01/01/2022 02:00:00 PM Scheduled Provider:Breanna Gu CNP Location:[facility] Appointment Type:FM Open Future Scheduled Tests Laboratory* HgbA1c 09/30/21 * HgbA1c 07/29/21 * Microalbumin Level Urine 07/29/21 * CBC w/ Auto Diff 07/29/21 * Comprehensive Metabolic Panel 07/29/21 * Lipid Panel 07/29/21 * Thyroid Stimulating Hormone 09/30/21 * Thyroid Stimulating Hormone 07/29/21 Radiology* Echo Transthoracic Complete 09/03/21 [facility] Evaluation + Plan note Future Appointments Appointment Date:10/15/2021 01:00:00 PM Scheduled Provider:Nancy GUTIERREZ CNP [facility] Type:Cardiology Follow Up (FT) Appointment Date:01/01/2022 02:00:00 PM Scheduled Provider:Breanna Gu CNP Location:[facility] Appointment Type:FM Open Future Scheduled Tests Laboratory* HgbA1c 07/29/21 * Thyroid Stimulating Hormone 07/29/21 Radiology* Echo Tran[facility]horacic [facility] Appointment Date:10/15/2021 01:00:00 PM Scheduled Provider:Nancy GUTIERREZ CNP [facility] Type:Cardiology Follow Up (FT) Appointment Date:01/01/2022 02:00:00 PM Scheduled Provider:Breanna Gu CNP Location:[facility] Appointment Type:FM Open Future Scheduled Tests Laboratory* HgbA1c 07/29/21 * Thyroid Stimulating Hormone 07/29/21 Radiology* NM Myocardial Spect Rest/Stress 1 Day 10/07/21 * Echo Transthoracic [facility]03/21 [facility] Future Appointments Appointment Date:11/14/2021 12:15:00 PM Scheduled Provider: [facility] App[facility] Type:NM Myocard Spect Multi Rest/Stress-Res Appointment Date:11/14/2021 01:15:00 PM Scheduled Provider: [facility] Appoint[facility] Type:NM Myocard Spect Multi Rest/Stress - R Appointment Date:11/14/2021 01:45:00 PM Scheduled Provider: [facility] Appointment Type:NM Myocard Spect Multi Rest/Stress-Str Appointment Date:11/14/2021 02:45:00 PM Scheduled Provider: [facility] Appointment Type:NM Myocar Spect Multi Rest/Stress - St Appointment Date:11/20/2021 11:45:00 AM Scheduled Provider:Yuriy Fraser MD [facility] Type:Cardiology Follow Up (FT) Appointment Date:01/01/2022 02:00:00 PM Scheduled Provider:Breanna Gu CNP Location:[facility] Appointment Type:FM Open Diagnostic Tests Pending * Urine Culture 10/30/21 Future Scheduled Tests Laboratory* Fecal WBC Lactoferrin 10/30/21 * HgbA1c 07/29/21 * Enteric Panel by PCR 10/30/21 * Thyroid Stimulating Hormone 07/29/21 Radiology* NM Myocardial Spect Rest/Stress 1 Day 11/14/21 * Echo Transthoracic [facility]03/21 [facility] Future Appointments Appointment Date:11/20/2021 11:45:00 AM Scheduled Provider:Yuriy Fraser MD [facility] Type:Cardiology Follow Up (FT) Appointment Date:12/02/2021 10:00:00 AM Scheduled Provider:Breanna Gu CNP Location:[facility] Appointment Type: ER/Hospital Follow Up Appointment Date:01/01/2022 02:00:00 PM Scheduled Provider:Breanna Gu CNP Location:[facility] Appointment Type:FM Open Future Scheduled Tests Laboratory* Fecal WBC Lactoferrin 10/30/21 * HgbA1c 07/29/21 * Enteric Panel by PCR 10/30/21 * Thyroid Stimulating Hormone 07/29/21 Radiology* Echo Transthoracic Complete 09[facility]03/21 [facility] Future Appointments Appointment Date:12/02/2021 10:00:00 AM Scheduled Provider:Breanna Gu CNP Location:[facility] Appointment Type:FM ER/Hospital Follow Up Appointment Date:01/01/2022 02:00:00 PM Scheduled Provider:Breanna Gu CNP Location:[facility] Appointment Type:FM Open Future Scheduled Tests Laboratory* Fecal WBC Lactoferrin 10/30/21 * HgbA1c 07/29/21 * Enteric Panel by PCR 10/30/21 * Thyroid Stimulating Hormone 07/29/21 Radiology* Echo Transthoracic Complete 09/03/21 [facility] Future Appointments Appointment Date:12/16/2021 08:30:00 AM Scheduled Provider: [facility] Appointment Type:NM Myocard Spect Multi Rest/Stress-Res Appointment Date:12/16/2021 09:30:00 AM Scheduled Provider: [facility] Appointment Type:NM Myocard Spect Multi Rest/Stress - R Appointment Date:12/16/2021 10:00:00 AM Scheduled Provider: [facility] Appointment Type:NM Myocard Spect Multi Rest/Stress-Str Appointment Date:12/16/2021 11:00:00 AM Scheduled Provider: [facility] Appointment Type:NM Myocar Spect Multi Rest/Stress - St Appointment Date:01/01/2022 02:00:00 PM Scheduled Provider:Breanna Gu CNP Location:[facility] Appointment Type:FM Open Future Scheduled Tests Laboratory* Fecal WBC Lactoferrin 10/30/21 * HgbA1c 07/29/21 * Enteric Panel by PCR 10/30/21 * Thyroid Stimulating Hormone 07/29/21 Radiology* NM Myocardial Spect Rest/Stress 1 Day 12/16/21 * Echo Transthoracic Complete 09/03/21 [facility] + Plan note Future Appointments Appointment Date:01/01/2022 02:00:00 PM Scheduled Provider:Breanna Gu CNP Location:[facility] Appointment Type:FM Open Future Scheduled Tests Laboratory* Fecal WBC Lactoferrin 10/30/21 * HgbA1c 07/29/21 * Enteric Panel by PCR 10/30/21 * Thyroid Stimulating Hormone 07/29/21 Radiology* NM Myocardial Spect Rest/Stress 1 Day 12/16/21 * Echo Transthoracic Complete 09/03/21 [facility]* Diagnosis Other insomnia- Primary documented in this encounter [facility] Work Phone: evaluation note* Diagnosis Onset Date Resolution Status Diabetic foot infection acut e Hypertension acute Hypokalemia acute Hypomagnesemia acute [facility] Work Phone: Evaluation note* Diagnosis Onset Date Resolution Status Abscess of toenail on left foot acute Cellulitis of left foot acut e [id number] acute Diabetic foot infection acut e Hypertension acute Hypokalemia acute Hypomagnesemia acute Hypophosphatemia acute Onychocryptosis acute Peripheral vascular disease acute Toe infection acute Toe pain, left acute Diabetes chronic Nicotine dependence chronic [facility] Work Phone: Evaluation noteNo [employer] [place] Other Evaluation note* Diagnosis Weakness of lower extremity, unspecified laterality- Primary Urinary incontinence, unspecified type Saddle anesthesia Disturbance of skin sensation Type 2 diabetes mellitus with diabetic neuropathy, unspecified whether medical terminologist insulin use ([facility]) [facility] Diagnosis Right knee pain, unspecified chronicity- Primary [facility]* Diagnosis Strain of right hamstring, initial encounter- Primary Strain of right knee, initial encounter Other specified diabetes mellitus with other specified complication, unspecified whether medical terminologist insulin use (HCC) [facility] Diagnosis Chest pain, unspecified type- Primary Chest pain, unspecified type Flank pain Abdominal pain, unspecified site Type 2 diabetes mellitus with other specified complication, unspecified whether medical terminologist insulin use (HCC) Seizure (HCC) Other convulsions [facility] Diagnosis Chest pain- Primary Unspecified chest [...] gap (NAG) Acidosis SOLO (acute kidney injury) (HCC) Abscess of chin Cellulitis and abscess of face Pacemaker Cardiac pacemaker in situ History of MRSA infection Hypertension, unspecified type Cellulitis of chin Cellulitis and abscess of face [facility] Diagnosis Non-recurrent acute suppurative otitis media [...] Bipolar 1 disorder (HCC) Insomnia, unspecified type Gastroesophageal reflux disease, unspecified [...] Encounter for vaccination [facility]* Diagnosis Left-sided weakness- Primary Visual loss, [...] long-term current use of insulin (HCC)- Primary Muscle spasms of both lower extremities [facility]* Diagnosis Muscle spasms of both lower extremities [facility]* Diagnosis Pain of left lower leg- Primary Pain in limb [facility] Diagnosis Muscle spasms of both lower extremities [facility] Diagnosis Chronic pain syndrome- Primary Muscle spasms of both lower extremities Urinary incontinence, unspecified type Chronic nonintractable headache, unspecified headache type Chronic obstructive pulmonary disease, unspecified COPD type (HCC) Type 2 diabetes mellitus with diabetic polyneuropathy, with long-term current use of insulin ([facility]) Diabetic peripheral neuropathy (HCC) Type II or unspecified type diabetes mellitus with neurological manifestations, not stated as uncontrolled Diabetic ulcer of right foot associated with type 2 diabetes mellitus, unspecified part of foot, unspecified ulcer stage ([facility]) Hypothyroidism, unspecified type Primary hypertension Unspecified essential hypertension Hypercholesterolemia Pure hypercholesterolemia S/P placement of cardiac pacemaker Seizures (HCC) Other convulsions Bipolar 1 disorder (HCC) Gastroesophageal reflux disease, unspecified whether esophagitis present Vitamin D deficiency Vitamin B12 deficiency Other B-complex deficiencies Cigarette nicotine dependence without complication [facility] Diagnosis Right foot ulcer, with fat layer exposed ([facility])- Primary [facility] Diagnosis Chronic pain syndrome- Primary Muscle [...] dependence without complication [facility] Diagnosis Muscle spasms of both lower extremities [facility]* Diagnosis Bipolar 1 disorder (HCC)- Primary Post traumatic stress disorder (PTSD) Generalized anxiety disorder Insomnia, unspecified type [facility] Diagnosis Primary hypertension- Primary Unspecified essential hypertension Subacute cough RUQ abdominal pain Abdominal pain, right upper quadrant Type 2 diabetes mellitus with diabetic polyneuropathy, with long-term current use of insulin (HCC) Family history of pulmonary fibrosis documented in [...] film insufficiency, unspecified [facility] Diagnosis Muscle spasms of both lower extremities Type 2 diabetes mellitus with diabetic polyneuropathy, with long-term current use of insulin (HCC) [facility]* Diagnosis Hearing loss of left ear, unspecified hearing loss type- Primary Lacunar stroke (HCC) Unspecified cerebral artery occlusion with cerebral infarction Seizure (HCC) Other convulsions [facility]* Diagnosis Type 2 diabetes mellitus with diabetic polyneuropathy, with long-term current use of insulin (HCC)- Primary [facility]* Diagnosis Type 2 diabetes mellitus with diabetic polyneuropathy, with long-term current use of insulin (HCC) [facility]* Diagnosis Type 2 diabetes mellitus with [...] with long-term current use of insulin (HCC) [facility]* Diagnosis Chronic pain syndrome- Primary Muscle [...] Chronic obstructive pulmonary disease, unspecified COPD type ([facility]) Family history of pulmonary fibrosis Retinal hemorrhage [...] both lower extremities [facility] Diagnosis Diabetic ulcer of left great toe ([facility])- Primary Diabetic ulcer of toe of left foot associated with type 2 diabetes mellitus, limited to breakdown of skin ([facility]) Diabetic ulcer of left great toe ([facility]) Seizures ([facility]) Other convulsions Type 2 diabetes mellitus with diabetic polyneuropathy, with long-term current use of insulin ([facility]) [facility] Diagnosis Diabetic ulcer of right foot associated with type 2 diabetes mellitus, unspecified part of foot, unspecified ulcer stage ([facility])- Primary Primary hypertension Unspecified essential hypertension SOLO (acute kidney injury) ([facility]) Hypothyroidism, unspecified type Hyperlipidemia, unspecified hyperlipidemia type [facility] Diagnosis Chronic pain syndrome [facility]* Diagnosis DDD (degenerative disc disease), lumbar Degeneration of lumbar or lumbosacral intervertebral disc Lumbar radiculopathy Thoracic or lumbosacral neuritis or radiculitis, unspecified [facility] Diagnosis DDD (degenerative disc disease), lumbar Degeneration of lumbar or lumbosacral intervertebral disc Lumbar radiculopathy Thoracic or lumbosacral neuritis or radiculitis, unspecified [facility]* Diagnosis Diabetic ulcer of left great toe (HCC)- Primary [facility]* Diagnosis Bipolar 1 disorder ([facility]) Insomnia, unspecified type [facility]* Diagnosis Chronic pain syndrome- Primary DDD (degenerative disc disease), lumbar Degeneration of lumbar or lumbosacral intervertebral disc Lumbar radiculopathy Thoracic or lumbosacral neuritis or radiculitis, unspecified Other chronic pain Myofascial pain syndrome Unspecified myalgia and myositis Debilitated patient Unspecified debility [facility]* Diagnosis Diabetic ulcer of left great toe (HCC)- Primary Hypertensive urgency Chronic nonintractable headache, unspecified headache type Abnormal pigmentation of skin Pleuritic chest pain Painful respiration Type 2 diabetes mellitus with diabetic polyneuropathy, with long-term current use of insulin (HCC) Chronic obstructive pulmonary disease, unspecified COPD type (HCC) Hypothyroidism, unspecified type History of stroke Transient ischemic attack (TIA), and cerebral infarction without residual deficits Seizures (HCC) Other convulsions Hypercholesterolemia Pure hypercholesterolemia Chronic pain syndrome Urinary incontinence, unspecified type Bipolar 1 disorder ([facility]) Insomnia, unspecified type Gastroesophageal reflux disease, unspecified whether esophagitis present Family history of pulmonary fibrosis Vitamin B12 deficiency Other B-complex deficiencies Vitamin D deficiency Cigarette nicotine dependence without complication Need for vaccination Need for prophylactic vaccination and inoculation against unspecified single disease [facility] Diagnosis DDD (degenerative disc disease), lumbar Degeneration of lumbar or lumbosacral intervertebral disc Lumbar radiculopathy Thoracic or lumbosacral neuritis or radiculitis, unspecified [facility]* Diagnosis Cellulitis of chin- Primary Cellulitis [...] pigmentation of skin [facility]* Diagnosis Cellulitis of chin- Primary Cellulitis [...] or radiculitis, unspecified [facility]* Diagnosis Type II diabetes mellitus with neurological manifestations (CMS/HCC)- Primary Type II or unspecified type diabetes mellitus with neurological manifestations, not stated as uncontrolled Chronic foot ulcer with fat layer exposed, left (CMS/HCC) Cellulitis of left foot [facility] Diagnosis Cellulitis of chin- Primary Cellulitis [...] whether esophagitis present [facility]* Diagnosis Cellulitis of chin- Primary Cellulitis [...] Chronic pain syndrome [facility]* Diagnosis Cellulitis of chin- Primary Cellulitis [...] for health-related screening [facility]* Diagnosis Cellulitis of chin- Primary Cellulitis [...] pain- Primary Lumbago [facility]* Diagnosis Cellulitis of chin- Primary Cellulitis [...] unspecified chronicity- Primary [facility]* Diagnosis Cellulitis of chin- Primary Cellulitis [...] in [facility]No assessment information [facility] Work Phone: Evaluation note* Diagnosis Cellulitis of [...] Chronic pain syndrome [facility]* Diagnosis Cellulitis of chin- Primary Cellulitis [...] Chronic pain syndrome [facility]* Diagnosis Hyperglycemia- Primary Other abnormal glucose SSS (sick sinus syndrome) Sinoatrial node dysfunction Hyperglycemia Other abnormal glucose Chronic back pain, unspecified back location, unspecified back pain laterality Uncontrolled type 2 diabetes mellitus with diabetic neuropathy, with long-term current use of insulin Uncontrolled type 2 diabetes mellitus with retinopathy, with long-term current use of insulin, macular edema presence unspecified, unspecified laterality, unspecified retinopathy severity Bipolar depression Bipolar I disorder, most recent episode (or current) depressed, unspecified Benign hypertension Essential hypertension, benign Hypothyroid Unspecified hypothyroidism Noncompliance Personal history of noncompliance with medical treatment, presenting hazards to health No-show for appointment- Primary [facility] Diagnosis Cellulitis of chin- Primary [...] Chronic pain syndrome [facility]* Diagnosis Sudden loss of vision- Primary Sudden visual loss HHS (hypothenar hammer syndrome) Hyperosmolar hyperglycemic state (HHS) ([facility]) Hyperosmolar hyperglycemic state (HHS) ([facility]) SOLO (acute kidney injury) HHS (hypothenar hammer syndrome) [facility]* Diagnosis Cellulitis of chin- Primary Cellulitis [...] or radiculitis, unspecified [facility] Author Ezekiel Mathew [facility] August 20, 2022 3:56am Note Date/Time August 20, 2022 3:5 6am [facility] [address] [place] [address] Hospitalist H&P Signed Patient: Addie Jean Baptiste MR#: [id number] : 1975 Acct:[id number] Age/Sex: 47 / F Adm Date: 3 Loc: Room: [address] [place] [address] Type: ADM INOo Attending Dr: Ezekiel Mathew [...] Medical History (Updated 08/20/22 @ 03:53 by Ezekeil Mathew DO) Anxiety Arthritis Bipolar disorder Cardiac [...] % (Auto) 27.3 % (.) 08/20/22 00:19 Butler % (Auto) 6.0 % (.) 08/20/22 00:19 Eos % (Auto) 1.3 % (.) 08/20/22 00:19 Baso % (Auto) 0.7 % (.) 08/20/22 00:19 Nucleat RBC Rel Count 0.0 /100 WBC (0-0.5) 08/20/22 00:19 Neut # (Auto) 5.5 x10E3/uL (1.8-7.7) 08/20/22 00:19 Lymph # (Auto) 2.3 x10E3/uL (1.00-4.8) 08/20/22 00:19 Butler # (Auto) 0.5 x10E3/uL (0.0-0.8) 08/20/22 00:19 [...] pH 6.5 (5.0-9.0) 08/20/22 01:07 Ur Specific [place] 1.017 (1.001-1.030) 08/20/22 01:07 Urine Protein 100 [...] She states that she does have a recreation specialist with Dr. Box. Since his partner Dr. [...] Signed By: <Electronically signed by Ezekiel Mathew, > 08/20/22 0356 [facility] Work Phone: history general Narrative - Reported* Type Description Date [...] Pain 07/2012 Hospitalization History [facility] 12/2013 Hospitalization History [facility] 2017 Hospitalization History Seizures [facility] [employer] Other history general Narrative - Reported* Type Description Date [...] Pain 07/2012 Hospitalization History [facility] 12/2013 Hospitalization History [facility] 2017 Hospitalization History Seizures Hospitalization History toe infection 08/2022 [employer] Other Hospital course Narrative No data available for this section [facility] Discharge instructions No data available for this section [facility] Discharge instructions* Attachments The following attachments cannot be sent through Care Everywhere. * Insomnia ([place]) * Video: Sleeping Better ([place]) * Video: Sleep and Your Health ([place]) * Video: When You're Not Sleeping Well ([place]) [facility]: Hospital Discharge instructions Additional Instructions Please follow up with your nurse practitioner re: blood sugars and Aicd evaluation. Call Dr. Romero's office to reschedule and to schedule a PST appointment before surgery.[facility] Work Phone: Hospital Discharge instructions* Attachments The following attachments cannot be sent through Care Everywhere. * Toe Amputation: Post-op ([place]) [facility] Discharge instructions Additional [...] with any concerns. Thank you for choosing [facility] Work Phone: InstructionsNot on filedocumented in this encounter [facility] Plan of care note* Visit Details Visit Type -SN HH OASIS Star t of Care Discipline -Detention Problems Problem Start Date Status Goals Interventions Psychosocial Health Disciplines: Detention 04/01/2023 Active 1 goal linked to scheduled/documented intervention 1 goal intervention scheduled/documented in this visit Neurological Disciplines: Detention 04/01/2023 Active 1 goal linked to scheduled/documented intervention 1 goal intervention scheduled/documented in this visit Respiratory Disciplines: Detention 04/01/2023 Active 1 goal linked to scheduled/documented intervention 1 goal intervention scheduled/documented in this visit Cardiac Disciplines: Detention 04/01/2023 Active 1 goal linked to scheduled/documented intervention 1 goal intervention scheduled/documented in this visit Diabetes Disciplines: Detention 04/01/2023 Active 1 goal linked to scheduled/documented intervention 1 goal intervention scheduled/documented in this visit Assess and Instruct Home Visit Disciplines: Detention 04/01/2023 Active 1 goal linked to scheduled/documented intervention 3 goal interventions scheduled/documented in this visit Medication Management Disciplines: Detention 04/01/2023 Active 1 goal linked to scheduled/documented intervention 1 goal intervention scheduled/documented in this visit Pain Management Disciplines: Detention 04/01/2023 Active 1 goal linked to scheduled/documented intervention 1 goal intervention scheduled/documented in this visit Assess POC Synopsis Disciplines: Detention 04/01/2023 Active 2 goals linked to scheduled/documented [...] Problem:Psychosocial Health Goal:Depression Completed Patient reports: see educational administration teacher taught: patient Clinician instructed on: follow current [...] Medication education completed today on medlist from avs medication(s). Patient/caregiver is able to teach back 25% of instruction. Patient to brick picker meds from pharmacy and follow medlist [...] interest in teaching [facility]* Visit Details Visit Type -SN HH [facility] Fisher t of Care Discipline -Detention Problems Problem Start Date Status Goals Interventions Psychosocial Health Disciplines: Detention 04/01/2023 Active 1 goal linked to scheduled/documented intervention 1 goal intervention scheduled/documented in this visit Neurological Disciplines: Detention 04/01/2023 Active 1 goal linked to scheduled/documented intervention 1 goal intervention scheduled/documented in this visit Respiratory Disciplines: Detention 04/01/2023 Active 1 goal linked to scheduled/documented intervention 1 goal intervention scheduled/documented in this visit Cardiac Disciplines: Detention 04/01/2023 Active 1 goal linked to scheduled/documented intervention 1 goal intervention scheduled/documented in this visit Diabetes Disciplines: Detention 04/01/2023 Active 1 goal linked to scheduled/documented intervention 1 goal intervention scheduled/documented in this visit Assess and Instruct Home Visit Disciplines: Detention 04/01/2023 Active 1 goal linked to scheduled/documented intervention 3 goal interventions scheduled/documented in this visit Medication Management Disciplines: Detention 04/01/2023 Active 1 goal linked to scheduled/documented intervention 1 goal intervention scheduled/documented in this visit Pain Management Disciplines: Detention 04/01/2023 Active 1 goal linked to scheduled/documented intervention 1 goal intervention scheduled/documented in this visit Assess POC Synopsis Disciplines: Detention 04/01/2023 Active 2 goals linked to scheduled/documented [...] Problem:Psychosocial Health Goal:Depression Completed Patient reports: see educational administration teacher taught: patient Clinician instructed on: follow current [...] Medication education completed today on medlist from avs medication(s). Patient/caregiver is able to teach back 25% of instruction. Patient to brick picker meds from pharmacy and follow medlist [...] interest in teaching [facility] Visit Details Visit Type -SN HH OASIS Fisher t of Care Discipline -Detention Problems Problem Start Date Status Goals Interventions Psychosocial Health Disciplines: Detention 04/01/2023 Active 1 goal linked to scheduled/documented intervention 1 goal intervention scheduled/documented in this visit Neurological Disciplines: Detention 04/01/2023 Active 1 goal linked to scheduled/documented intervention 1 goal intervention scheduled/documented in this visit Respiratory Disciplines: Detention 04/01/2023 Active 1 goal linked to scheduled/documented intervention 1 goal intervention scheduled/documented in this visit Cardiac Disciplines: Detention 04/01/2023 Active 1 goal linked to scheduled/documented intervention 1 goal intervention scheduled/documented in this visit Diabetes Disciplines: Detention 04/01/2023 Active 1 goal linked to scheduled/documented intervention 1 goal intervention scheduled/documented in this visit Assess and Instruct Home Visit Disciplines: Detention 04/01/2023 Active 1 goal linked to scheduled/documented intervention 3 goal interventions scheduled/documented in this visit Medication Management Disciplines: Detention 04/01/2023 Active 1 goal linked to scheduled/documented intervention 1 goal intervention scheduled/documented in this visit Pain Management Disciplines: Detention 04/01/2023 Active 1 goal linked to scheduled/documented intervention 1 goal intervention scheduled/documented in this visit Assess POC Synopsis Disciplines: Detention 04/01/2023 Active 2 goals linked to scheduled/documented [...] Problem:Psychosocial Health Goal:Depression Completed Patient reports: see educational administration teacher taught: patient Clinician instructed on: follow current [...] Medication education completed today on medlist from avs medication(s). Patient/caregiver is able to teach back 25% of instruction. Patient to brick picker meds from pharmacy and follow medlist [...] interest in teaching [facility] Visit Details Visit Type -SN HH OASIS Fisher t of Care Discipline -Detention Problems Problem Start Date Status Goals Interventions Psychosocial Health Disciplines: Detention 04/01/2023 Active 1 goal linked to scheduled/documented intervention 1 goal intervention scheduled/documented in this visit Neurological Disciplines: Detention 04/01/2023 Active 1 goal linked to scheduled/documented intervention 1 goal intervention scheduled/documented in this visit Respiratory Disciplines: Detention 04/01/2023 Active 1 goal linked to scheduled/documented intervention 1 goal intervention scheduled/documented in this visit Cardiac Disciplines: Detention 04/01/2023 Active 1 goal linked to scheduled/documented intervention 1 goal intervention scheduled/documented in this visit Diabetes Disciplines: Detention 04/01/2023 Active 1 goal linked to scheduled/documented intervention 1 goal intervention scheduled/documented in this visit Assess and Instruct Home Visit Disciplines: Detention 04/01/2023 Active 1 goal linked to scheduled/documented intervention 3 goal interventions scheduled/documented in this visit Medication Management Disciplines: Detention 04/01/2023 Active 1 goal linked to scheduled/documented intervention 1 goal intervention scheduled/documented in this visit Pain Management Disciplines: Detention 04/01/2023 Active 1 goal linked to scheduled/documented intervention 1 goal intervention scheduled/documented in this visit Assess POC Synopsis Disciplines: Detention 04/01/2023 Active 2 goals linked to scheduled/documented [...] Problem:Psychosocial Health Goal:Depression Completed Patient reports: see educational administration teacher taught: patient Clinician instructed on: follow current [...] Medication education completed today on medlist from avs medication(s). Patient/caregiver is able to teach back 25% of instruction. Patient to brick picker meds from pharmacy and follow medlist [...] interest in teaching documented in this encounter [facility] Plan of care note* Visit Details Visit Type -PREDICTIVE MAINTENANCE TECHNICIAN Missed Visit Discipline -Home Health Aide Problems [...] Aide Goal:Hygiene/Safety Scheduled [facility] Visit [...] Care Plan Scheduled [facility] Visit Details Visit Type -SCIENTIFIC MANAGER Routine Discipline -Detention Problems Problem Start Date Status Goals Interventions Assess and Instruct Home Visit Disciplines: Detention 04/01/2023 Active 1 goal linked to scheduled/documented intervention 4 goal interventions scheduled/documented in this visit Medication Management Disciplines: Detention 04/01/2023 Active 1 goal linked to scheduled/documented intervention 1 goal intervention scheduled/documented in this visit Pain Management Disciplines: Detention 04/01/2023 Active 1 goal linked to scheduled/documented [...] rugs, safe cord/tubing management (O2, IV, Electrical, Luque), non-slip mats in tubs/showers, handrails/grab bar placement, [...] Management Goal:Pain Completed documented in this encounter [facility] home Plan of care note* Visit Details Visit Type -[facility] Visi t Discipline -Home Health Aide [...] Aide Goal:Hygiene/Safety Completed documented in this encounter [facility] Plan of care note* Visit [facility] A[facility] Problems Problem [...] Aide Goal:Hygiene/Safety Completed [facility] Visit Details Visit Type -OLIVE BRINE TESTER Routine Visi t Discipline -Physical Therapy Problems [...] Type -SN HH Routine Vi sit Discipline -Detention Problems Problem Start Date Status Goals Interventions Psychosocial Health Disciplines: Detention 04/01/2023 Active 1 goal linked to scheduled/documented intervention 1 goal intervention scheduled/documented in this visit Neurological Disciplines: Detention 04/01/2023 Active 1 goal linked to scheduled/documented intervention 1 goal intervention scheduled/documented in this visit Respiratory Disciplines: Detention 04/01/2023 Active 1 goal linked to scheduled/documented intervention 1 goal intervention scheduled/documented in this visit Cardiac Disciplines: Detention 04/01/2023 Active 1 goal linked to scheduled/documented intervention 1 goal intervention scheduled/documented in this visit Diabetes Disciplines: Detention 04/01/2023 Active 1 goal linked to scheduled/documented intervention 1 goal intervention scheduled/documented in this visit Assess and Instruct Home Visit Disciplines: Detention 04/01/2023 Active 1 goal linked to scheduled/documented intervention 4 goal interventions scheduled/documented in this visit Medication Management Disciplines: Detention 04/01/2023 Active 1 goal linked to scheduled/documented intervention 1 goal intervention scheduled/documented in this visit Pain Management Disciplines: Detention 04/01/2023 Active 1 goal linked to scheduled/documented intervention 1 goal intervention scheduled/documented in this visit Assess POC Synopsis Disciplines: Detention 04/01/2023 Active 2 goals linked to scheduled/documented interventions 2 goal interventions scheduled/documented in this visit Wound Care and/or Skin Problems Disciplines: Detention 04/15/2023 Active 1 goal linked to scheduled/documented [...] getting set up in dose packs from [place] [facility]. Assess Pain Characteristics and Current Pain Regimen and Instruct Methods of Pain Relief Problem:Pain Management Goal:Pain Completed Assess and Address Symptoms of Depression Problem:Assess POC Synopsis Goal:Depression Assessment Completed Assess Feet and Provide Diabetic Foot Education Problem:Assess POC Synopsis Goal:Diabetic Foot Education Completed Wound/Incision Problem:Wound Care and/or Skin Problems Goal:Wound/Incision Scheduled documented in this encounter [facility] Plan of care note* Visit Details Visit Type -PREDICTIVE MAINTENANCE TECHNICIAN Missed Visit Discipline -Home Health Aide Problems [...] Aide Goal:Hygiene/Safety Scheduled documented in this encounter [facility] Plan of care note* Visit Details Visit Type -SN Missed Visit Discipline -Detention Problems Problem Start Date Status Goals Interventions Assess and Instruct Home Visit Disciplines: Detention 04/01/2023 Active 1 goal linked to scheduled/documented intervention 3 goal interventions scheduled/documented in this visit Medication Management Disciplines: Detention 04/01/2023 Active 1 goal linked to scheduled/documented intervention 1 goal intervention scheduled/documented in this visit Pain Management Disciplines: Detention 04/01/2023 Active 1 goal linked to scheduled/documented intervention 1 goal intervention scheduled/documented in this visit Wound Care and/or Skin Problems Disciplines: Detention 04/15/2023 Active 1 goal linked to scheduled/documented [...] Problems Goal:Wound/Incision Scheduled [facility] Visit Details Visit Type -OLIVE BRINE TESTER Missed Visit Discipline -Physical Therapy Problems Problem [...] Care Plan Scheduled documented in this encounter [facility] Plan of care note* Visit Details [...] Care Plan Scheduled documented in this encounter [facility] Plan of care note* Visit Details Visit Type -SN HH OASIS Disc harge Discipline -Detention Problems Problem Start Date Status Goals Interventions Assess and Instruct Home Visit Disciplines: Detention 04/01/2023 Active 1 goal linked to scheduled/documented intervention 3 goal interventions scheduled/documented in this visit Medication Management Disciplines: Detention 04/01/2023 Active 1 goal linked to scheduled/documented intervention 1 goal intervention scheduled/documented in this visit Pain Management Disciplines: Detention 04/01/2023 Active 1 goal linked to scheduled/documented intervention 1 goal intervention scheduled/documented in this visit Wound Care and/or Skin Problems Disciplines: Detention 04/15/2023 Active 1 goal linked to scheduled/documented [...] Problems Goal:Wound/Incision Scheduled [facility] Visit Details Visit Type -OLIVE BRINE TESTER Missed Visit Discipline -Physical Therapy Problems Problem [...] CARE ADMISSION (including facility stays and dates): [facility] 03/29-03/30/23 for: Atypical chest pain, resolved Elevated troponin, chronic - to follow up outpatient with cardiology T2DM, uncontrolled Diabetic peripheral neuropathy obesity seizure disorder Side/site of body affected (dominant hand if neuro diagnosis): cardiac Comorbidities with potential to affect the Plan of Care: DM and CAD Additional Disciplines requested: none Disciplines referred and declined by patient/caregiver: agreeable to all ordered services: SN,PT,OT,PREDICTIVE MAINTENANCE TECHNICIAN Prior functional level: indpendent with adls/ questionable management of meds as none in home at time of admission/dependent for iadls Current functional level: needs assist with learning meds/disease process Fall Risk: MAHC-10 score 7, 4-10 Patient IS at risk for falls (a score of 6 or greater is a predictor of future falls) Medication Issues: no meds in home, patient agreed to brick picker all meds from pharmacy on day [...] training, therex, HEP. [facility]* Actions Homebound Status Criteria 1: Assistive Device(s): None Needs assistance of at least 1 to leave home Criteria 2: Patient confined to home due to unsteady gait/poor balance Type of Home: split level / walkout [facility] Patient s goals for HomeCare: Be stronger What skill(s) will be provided by your discipline: ADL retraining, ther exercises, ther activity Rehab Potential: good HISTORY OF PRESENT ILLNESS LEADING UP TO HOME CARE ADMISSION (including facility stays and dates): [facility] 03/29-03/30/23 for: Atypical chest pain, resolved elevated [...] unsteady gait/poor balance [facility]* Narratives Pt declined further care to RN. RN completed OASIS D/C. Home PT non-billable discharge completed. [facility] No data available for this section [facility] Author Jeana Martini [facility] August 20, 2022 9:48am Note Date/Time August 20, 2022 9:4 8am [facility] [address] [place] [address] Hospitalist Progress Note Signed Patient: Addei Jean Baptiste MR#: [id number] : 1975 Acct:[id number] Age/Sex: 47 / F Adm Date: 3 Loc: Room: [address] [place] [address] Type: ADM INOo Attending Dr: Jeana Martini [...] place, time and person, morbidly obese HEENT: [place] conjunctiva and NL buccal mucosa Neck: Supple, [...] 40 mg 08/21/22 09:00 Pantoprazole 40 Mg Tablet. PO 08/21/23 08:59 DAILY SAMEER Pregabalin 150 [...] subcu injection. Documented By: Jeana Martini MD 08/20/2246 Signed By: <Electronically signed by Jeana Martini MD> 08/20/2248 [facility] Work Phone: Progress note Author Jeana Martini [facility] August 21, 2022 10:10am Note Date/Time August 21, 2022 10: 10am [facility] [address] [place] [address] Hospitalist Progress Note Signed Patient: Addie Jean Baptiste MR#: [id number] : 1975 Acct:[id number] Age/Sex: 47 / F Adm Date: 3 Loc: 3T Room: [address] [place] [address] Type: ADM IN Attending Dr: Jeana Martini [...] place, time and person, morbidly obese HEENT: [place] conjunctiva and NL buccal mucosa Neck: Supple, [...] signed by Jeana Martini MD> 08/21/22 1010 [facility] Work Phone: Progress note Author Lawrence Kim [facility] August 21, 2022 11:22am Note Date/Time August 21, 2022 11: 22am [facility] [address] [place] [address] Infect. Disease Progress Note Signed Patient: Addie Jean Baptiste MR#: [id number] : 1975 Acct:[id number] Age/Sex: 47 / F Adm Date: 3 Loc: Room: [address] [place] [address] Type: ADM IN Attending Dr: Jeana Martini [...] 5 Mg Tablet) 5 mg PO DAILY [facility] Stop: 08/20/23 09:39 Last Admin: 08/21/22 09:00 [...] 20 Mg Tablet) 20 mg PO DAILY.8A [facility] Stop: 08/20/23 07:59 Last Admin: 08/21/22 09:00 [...] 300 Units/3 Ml Insuln.Pen) 0 units SUBCUT TID.[facility]; Protocol Stop: 08/20/23 11:59 Last Admin: 08/21/22 09:03 Dose: Not Given Levetiracetam (Levetiracetam 250 Mg Tablet) 750 mg PO BID [facility] Stop: 08/20/23 08:59 Last Admin: 08/21/22 08:59 Dose: 750 mg Levothyroxine Sodium (Levothyroxine 75 Mcg Tablet) 75 mcg PO DAILY@0630 SAMEER Stop: 08/20/23 06:29 Last Admin: 08/21/22 06:09 Dose: 75 mcg Lisinopril (Lisinopril 40 Mg Tablet) 40 mg PO DAILY [facility] Stop: 08/20/23 08:59 Last Admin: 08/21/22 09:01 Dose: 40 mg Metformin HCl (Metformin 500 Mg Tablet) 1,000 mg PO BID.WITH.MEALS [facility] Stop: 08/20/23 07:59 Last Admin: 08/21/22 09:00 Dose: 1,000 mg Pantoprazole Sodium (Pantoprazole 40 Mg Tablet.Dr) 40 mg PO DAILY [facility] Stop: 08/21/23 08:59 Last Admin: 08/21/22 09:01 Dose: 40 mg Pregabalin (Pregabalin 150 Mg Capsule) [address] [facility] Stop: 02/16/23 03:44 Last Admin: 08/20/22 21:12 Dose: 150 mg Quetiapine Fumarate (Quetiapine Fumarate 200 Mg Tablet) [address] [facility] Stop: 08/20/23 03:59 Last Admin: 08/20/22 21:12 Dose: 800 mg Saccharomyces Boulardii (Saccharomyces Boulardii 250 Mg Capsule) 250 mg PO BID.WITH.MEALS [facility] Stop: 08/20/23 07:59 Last Admin: 08/21/22 08:59 [...] signed by MD Lawrence Kim> 08/21/22 1122 [facility] Work Phone: Progress note Author Jeana Martini [facility] August 22, 2022 9:54am Note Date/Time August 22, 2022 9:5 5am [facility] [address] [place] [address] Hospitalist Progress Note Signed Patient: Addie Jean Baptiste MR#: [id number] : 1975 Acct:[id number] Age/Sex: 47 / F Adm Date: 3 Loc: Room: 9O2002-3 Type: ADM IN Attending Dr: Jeana Martini [...] place, time and person, morbidly obese HEENT: [place] conjunctiva and NL buccal mucosa Neck: Supple, [...] Reaction linezolid [From Zyvox] Adverse Reaction (Verified 03/28/23 21:48) Vomiting Active Meds: Active Medications Generic [...] signed by Jeana Martini MD> 08/22/22 0954 [facility] Work Phone: Progress note Author Shameka Romero [facility] August 22, 2022 9:56am Note Date/Time August 22, 2022 9:5 6am [facility] [address] [place] [address] Vascular Surgery Progress Note Signed Patient: Addie Jean Baptiste MR#: [id number] : 1975 Acct:[id number] Age/Sex: 47 / F Adm Date: 3 Loc: 3T Room: [address] [place] [address] Type: ADM IN Attending Dr: Jeana Martini [...] to the special suite and placed her [facility] angiography table. She is extremely anxious and [...] signed by Shameka Romero MD> 08/22/22 0956 [facility] Work Phone: Remzvu for referral (narrative)* Consultation (Routine) - New Request Specialty Diagnoses / Procedures Referred By Dougac t Referred To [facility] Primary [facility] Sports Diagnoses Pain of left lower leg Tonia Ridley, LYLE-USABILITY SPECIALIST [address] [place] [phone] Referral ID Status Reason Start Date Expiration Date V isits Requested Visits Authorized [id number] New Request 08/26/2023 09/19/2024 1 1 [facility]No reason for referral information availableAs[facility]ula [facility] Work Phone: Remlvg for visit Narrativewondering about R/S for [facility] Other Reawai for visit Narrative* Auth/Cert Specialty Diagnoses / Procedures Referred By Contac t Referred To Contact Diagnoses Sudden vision loss Vanessa Vargas MD [address] [facility] [address] [place] [address] Phone: tel: fax: Referral ID Status Reason Start Date Expiration Date Visits Re quested Visits Authorized [id number] 1 1 [facility] Assessments Diagnosis Acute exacerbation of chroni c [...] Heart disease Unknown mother Rheumatoid arthritis Unknown Relationship Condition Age at Onset Recorded Date/T mgean father Coronary artery disease Unknown Diabetes mellitus Unknown Hypertension Unknown mother Seizure Unknown brother Blood disorder Unknown father Diabetes mellitus Unknown Heart disease Unknown grandparent Unknown mother Family history of thyroid disease Unknown Advance Directives No Advanced Directives Records FoundDocuments on File Type Date Recorded Patient Bellows Tester Expl anation Advance Directives and Livin g [...] Documents on File Type Date Recorded Patient Bellows Tester Expl anation Advance Directives and Livin g Will 07/08/2023 8:24 PM Documents on File Type Date Recorded Patient Bellows Tester Expl anation Advance Directives and Livin g [...] Documents on File Type Date Recorded Patient Bellows Tester Expl anation Advance Directives and Livin g Will 11/09/2023 8:44 PM Documents on File Type Date Recorded Patient Bellows Tester Expl anation Advance Directives and Livin g [...] Recorded Date/ Time Living Will No July 05 12:07pm Health Care POA No July 05 12:07pm DNR CC/CCA Form Complete No r 2014 12:07pm Organ Donor No July 05, 015 12:07pm Date Activated Date Inactivated Comments 12/03/2024 7:40 AM 12/05/2024 7:18 PM Date Activated Date Inactivated Comments 03/06/2022 2:06 AM 03/11/2022 9:21 PM Date Activated Date Inactivated Comments 12/03/2024 7:40 AM 12/05/2024 7:18 PM Date Activated Date Inactivated Comments 03/06/2022 2:06 AM 03/11/2022 9:21 PM Hospital Course Note Send Summary: Discharge Summ margoth Providers: Provider RoleProvider Name Rosalia Mendez Samuel E AttendingQuan, Kara Note Recipients: Rosalia Noble MD - [id number] [preferred] Italo Headley MD - [id number] [] Discharge: Summary: Admission Date: .06-Apr-2019 06:38:00 Discharge Date: 07-Apr-2019 Attending Physician at Discharge: Rosalia Noble Admission Reason: sustained ventricular tachycardia Final Discharge Diagnoses: sustained ventricular tachycardia dual chamber ICD Procedures: electrophysiology studies and dual chamber PPM upgrade to dual chamber ICD Condition at Discharge: Satisfactory Disposition at Discharge: .Home Vital Signs: T PRBPSpO2 [id number]/8395% Date/Time04/07 8: 8: 8: 8: 8:00 Range(36.2C [...] Log into your personal health record on [email or web address] and enter A739 in the Education box to learn more about Diabetes Foot Health: Care Instructions. Current as of: January 23, 2020 Content Version: 12.7 [employer]. Care instructions adapted under license by your healthcare professional. If you have questions about a medical condition or this instruction, always ask your healthcare professional. [employer] disclaims any warranty or liability for your [...] so she went to Emergency Department in [place], subsequently came to [facility] and was admitted for cellulitis [...] at pharmacy - uses [facility] in [place] . FLUoxetine (PROZAC) 40 MG capsule Take [...] file Gets together: Not on file Attends congregation service: Not on file Active member of [...] with #316 blade. Nail border removed with leather cutter and hemostats under digital anesthesia. All necrotic [...] If there are any questions, please call. [phone]. * Nikko Wasserman, PT - 06/04/2020 4:00 [...] level Prior Level of Function Level of Garrett: Independent with ADLs and functional transfers, Independent [...] 10.2-worsened since 06/28/2019. She reports that her biochemical development engineer is Dr Resendez-office number [phone]. Spoke with office staff this am and [...] pt and pt has notbeen seen by biochemical development engineer in almost 1 year. MD did refill [...] Infusions: sodium chloride 0.9 % Stopped (06/03/20 5469) sodium chloride 0.9 % 100 mL/hr (06/04/20 [...] n left foot Cellulitis of left foot [id number] Diabetic foot infection Hypertension Hypokalemia Hypomagnesemia Hypophosphatemia Onychocryptosis Peripheral vascular disease Toe infection Toe pain, left Diabetes Nicotine dependence Chief Complaint L foot pain PAD w/left great toe ulcer Reason for Visit Abscess of toenail o n left foot Cellulitis of left foot [id number] Diabetic foot infection Hypertension Hypokalemia Hypomagnesemia Hypophosphatemia Onychocryptosis Peripheral vascular disease Toe infection Toe pain, left Diabetes Nicotine dependence Chief Complaint Admit Date FINGER LAC August 29, 2024 1:44 pm Chief Complaint Admit Date Unknown December 28, 2024 1:4 4pm Reason for Referral Specialty Diagnoses / Procedures Referred By Richa t Referred To Contact Neurology Diagnoses Chronic nonintractable headache, unspecified headache type Stephany Pelayo PA-C [address] [place] [address] Virgen Campos MD [address] [address] Referral ID Status Reason Start Date Expiration Date V isits Requested Visits Authorized [id number] Authorized 02/11/2024 02/10/2025 1 1 Specialty Diagnoses / Procedures Referred By Contac t Referred To Contact Diagnoses Chronic obstructive pulmonary disease, unspecified COPD type (HCC) Stephany Pelayo PA-C [address] [address] Referral ID Status Reason Start Date Expiration Date Visits Re quested Visits Authorized [id number] Closed 1 1 Specialty Diagnoses / Procedures Referred By Contac t Referred To Contact Rehabilitation Diagnoses Chronic pain syndrome DDD (degenerative disc disease), lumbar Lumbar radiculopathy Jim Velez DO [address] [place] [address] Referral ID Status Reason Start Date Expiration Date V isits Requested Visits Authorized [id number] Authorized 12/08/2023 12/07/2024 1 1 Specialty Diagnoses / Procedures Referred By Contac t Referred To Contact Diagnoses Type 2 diabetes mellitus with diabetic polyneuropathy, with long-term current use of insulin (HCC) Sahara Sanchez MD [address] [place] [address] Referral ID Status Reason Start Date Expiration Date V isits Requested Visits Authorized [id number] Pending Review 1 1 Specialty Diagnoses / Procedures Referred By Contac t Referred To Contact Diagnoses Lacunar stroke ([facility]) Procedures Thrombotic Risk Screen Virgen Campos MD [address] [place] [address] Referral ID Status Reason Start Date Expiration Date V isits Requested Visits Authorized [id number] Pending Review 09/16/2023 09/15/2024 1 1 Specialty Diagnoses / Procedures Referred By Contac t Referred To Contact Otolaryngology Diagnoses Hearing loss of left ear, unspecified hearing loss type Virgen Campos MD [address] [facility] 2 [place] [address] Map Ent [place] [address] [facility] 1 [place] [address] Referral ID Status Reason Start Date Expiration Date Visits Requested Visits Authorized [id number] Authorized Specialty Services Required/Pat ient's Best Interest 09/16/2023 09/15/2024 1 1 Specialty Diagnoses / Procedures Referred By Contac t Referred To Contact Neurology Diagnoses Seizure (HCC) Procedures EEG (Standard) Virgen Campos MD [address] [address] Referral ID Status Reason Start Date Expiration Date V isits Requested Visits Authorized [id number] Pending Review 09/16/2023 09/15/2024 1 1 Specialty Diagnoses / Procedures Referred By Contac t Referred To Contact Pulmonary Disease Diagnoses Subacute cough Family history of pulmonary fibrosis Stephany Pelayo PA-C [address] [address] Neida Dominguez MD [address] [place] [address] Referral ID Status Reason Start Date Expiration Date Visits Requested Visits Authorized [id number] Authorized Patient Preference 10/29/2023 10/28/2024 1 1 Specialty Diagnoses / Procedures Referred By Contac t Referred To Contact Radiology Diagnoses RUQ abdominal pain Procedures US Abdomen Complete Stephany Pelayo PA-C [address] [address] Central Scheduling [address] [place] [address] Referral ID Status Reason Start Date Expiration Date V isits Requested Visits Authorized [id number] Authorized 10/13/2023 10/12/2024 1 1 Specialty Diagnoses / Procedures Referred By Contac t Referred To Contact Pulmonology Diagnoses Subacute cough Family history of pulmonary fibrosis Stephany Pelayo PA-C [address] [place] [address] Merrick Almanza MD [address] [place] [address] Referral ID Status Reason Start Date Expiration Date Visits Re quested Visits Authorized [id number] Closed 10/13/2023 10/12/2024 1 1 Specialty Diagnoses / Procedures Referred By Contac t Referred To Contact Urology Diagnoses Incontinence in female AwastyHarris MD [address] [place] [address] [facility] [place] [address] [place] [address] Referral ID Status Reason Start Date Expiration Date V isits Requested Visits Authorized [id number] Authorized 06/22/2023 06/21/2024 1 1 Specialty Diagnoses / Procedures Referred By Contac t Referred To Contact Home Health Services Diagnoses Diabetic ulcer of right foot associated with type 2 diabetes mellitus, unspecified part of foot, unspecified ulcer stage (HCC) Left-sided weakness Visual loss, left eye Stephany Pelayo PA-C [address] [place] [address] Referral ID Status Reason Start Date Expiration Date Visits Requested Visits Authorized [id number] Pending Review Patient Preference 3 05/14/2024 1 1 Specialty Diagnoses / Procedures Referred By Contac t Referred To Contact Home Health Services Diagnoses Generalized weakness Diabetic ulcer of right foot associated with type 2 diabetes mellitus, unspecified part of foot, unspecified ulcer stage (HCC) Muscle spasms of both lower extremities Stephany Pelayo PA-C [address] [address] Referral ID Status Reason Start Date Expiration Date Visits Requested Visits Authorized [id number] Pending Review Specialty Services Required/Pat ient's Best Interest 05/05/2024 1 1 Specialty Diagnoses / Procedures Referred By Contac t Referred To Contact Obstetrics/Gynecology Diagnoses Screening for cervical cancer Stephany Pelayo PA-C [address] [address] Timothy Banegas MD [address] [place] [address] Referral ID Status Reason Start Date Expiration Date Visits Requested Visits Authorized [id number] Closed Patient Preference 05/06/2023 05/05/2024 1 1 Specialty Diagnoses / Procedures Referred By Contac t Referred To Contact Ophthalmology Diagnoses Type 2 diabetes mellitus with diabetic polyneuropathy, with long-term current use of insulin (HCC) Stephany Pelayo PA-C [address] [address] [facility] [address] [place] [address] Referral ID Status Reason Start Date Expiration Date V isits Requested Visits Authorized [id number] Authorized 05/06/2023 05/05/2024 1 1 Specialty Diagnoses / Procedures Referred By Contac t Referred To Contact Radiology Diagnoses Encounter for screening mammogram for malignant neoplasm of breast Procedures Mammography Screening [place] Bilateral Stephany Pelayo PA-C [address] [address] Central Scheduling [facility] [place] [address] Referral ID Status Reason Start Date Expiration Date V isits Requested Visits Authorized [id number] Authorized 05/06/2023 05/05/2024 1 1 Specialty Diagnoses / Procedures Referred By Contac t Referred To Contact Cardiology Diagnoses S/P placement of cardiac pacemaker Chronic chest pain Stephany Pelayo PA-C [address] [address] Map Cardio [facility] 1 [address] [place] [address] Referral ID Status Reason Start Date Expiration Date V isits Requested Visits Authorized [id number] Authorized 05/06/2023 05/05/2024 1 1 Specialty Diagnoses / Procedures Referred By Contac t Referred To Contact Endocrinology Diagnoses Type 2 diabetes mellitus with diabetic polyneuropathy, with long-term current use of insulin (HCC) Diabetic peripheral neuropathy (HCC) Stephany Pelayo PA-C [address] [place] [address] Map Endo [facility] [address] [place] [address] Referral ID Status Reason Start Date Expiration Date V isits Requested Visits Authorized [id number] Authorized 05/06/2023 05/05/2024 1 1 Specialty Diagnoses / Procedures Referred By Contac t Referred To Contact Stephany Pelayo PA-C [address] [place] [address] Referral ID Status Reason Start Date Expiration Date Visits Re quested Visits Authorized [id number] Closed 1 1 Specialty Diagnoses / Procedures Referred By Contac t Referred To Contact Psychiatry Diagnoses Bipolar 1 disorder (HCC) Insomnia, unspecified type Stephany Pelayo PA-C [address] [place] [address] [facility] [place] [address] [place] [address] Referral ID Status Reason Start Date Expiration Date V isits Requested Visits Authorized [id number] Authorized 05/06/2023 05/05/2024 1 1 Specialty Diagnoses [...] Cellulitis of chin Harshad Rizzo MD [address] [place] [address] Referral ID Status Reason Start Date Expiration Date Visits Requested Visits Authorized [id number] Authorized Patient Preference 03/31/2023 03/30/2024 1 1 Specialty Diagnoses / Procedures Referred By Contac t Referred To Contact Care Management Diagnoses Chest pain, moderate coronary artery risk Diabetic peripheral neuropathy (HCC) Seizure disorder (HCC) Morbid obesity (HCC) Harshad Rizzo MD [address] [id number] [facility] Coordin [address] [facility] [place] [address] Referral ID Status Reason Start Date Expiration Date V isits Requested Visits Authorized [id number] Authorized 03/30/2023 03/29/2024 1 1 Specialty Diagnoses / Procedures Referred By Contac t Referred To Contact Endocrinology Diagnoses Type 2 diabetes mellitus with other specified complication, unspecified whether medical terminologist insulin use ([facility]) Harshad Rizzo MD [address] [place] [address] [place] [address] [place] [address] Referral ID Status Reason Start Date Expiration Date Visits Requested Visits Authorized [id number] Pending Review Specialty Services Required/Pat ient's Best Interest 02/18/2023 02/18/2024 1 1 Additional Source Comments ED Notes - Rita Bland, JAEL - 06/26/2017 9:39 PM GARCIA Provider Notes - Michi San DO - 06/26/2017 8:07 PM ESTED Notes - Rita Bland RN - 06/26/2017 7:59 PM EST Miscellaneous Notes (unrecog nized section and content) Radiology called to ask about the status on pt's xray results. Radiology said they would call [place]. Formatting of this note may be different from the original. ED PROVIDER NOTE [facility] EMERGENCY DEPARTMENT NAME: Addie Jean Baptiste AGE: 42 y.o. : 1975 VISIT DATE: 06/26/2017 CSN: [id number] PCP: Cem Mario DO Clinical Impression: SNOMED CT(R) 1. Acute exacerbation of chronic low back pain CHRONIC LOW BACK PAIN Follow-up Information 1. Cem Mario DO. Specialty: Family Medicine [address] [place] [address] Contact information for after-discharge care Follow-up information [...] reports that she was eating dinner at [place] and when she was leaving she lifted [...] BP Temp Pulse Resp SpO2 Height Weight 06/26/17 2127 (!) 122/105 - 91 17 100 % - - 06/26/17 210 (!) 128/109 - 88 17 99 % [...] (Standard) Final Result No acute bony abnormalities. [facility] [place] ID: [id number] [id number] Lumbar Spine 2-3 Views (Standard) (Results Pending) Procedures . New Prescriptions CYCLOBENZAPRINE (FLEXERIL) 10 MG TABLET Take 1 (one) tablet (10 mg total) by mouth 3 (three) times a day as needed for muscle spasms. Michi San DO, FACEP Attending Physician [facility] Emergency Department Michi Thrasher DO Jaswinder 06/26/172158 Pt back from radiology Pt to radiology Report received from JAEL Franks. Pt resting on cot, texting. Pt tearful, states that her pain is 10/10 between her shoulders and down her back. Denies needs at this time, call light within reach. Report given to: Rita ELDER Pt states she was at [place] eating and then upon leaving went to [...] This RN was notified by pharmacist that [facility] does not carry vraylar and could the patient have her home vraylar brought to the hospital. Pt states that her boyfriend will bring that medication today. Pt gave herself 15.25units for FSBS 134 Associated Problem(s): Seizures (HCC) Continue home ping depakote Associated Problem(s): Bipolar 1 disorder (HCC) [...] section and content) DATE CREATED AUTHOR 11/12/2017 Anna gutierrez DATE CREATED AUTHOR AUTHOR'S ORGANIZ ATION 11/13/2017 [facility] DATE CREATED AUTHOR AUTHOR'S ORGANIZ ATION 07/13/2018 [facility] DATE CREATED AUTHOR AUTHOR'S ORGANIZ ATION 04/12/2019 [facility] DATE CREATED AUTHOR AUTHOR'S ORGANIZ ATION 08/22/2019 [facility] DATE CREATED AUTHOR AUTHOR'S ORGANIZ ATION 12/12/2021 [facility] DATE CREATED AUTHOR AUTHOR'S ORGANIZ ATION 10/08/2022 [facility] DATE CREATED AUTHOR AUTHOR'S ORGANIZ ATION 11/05/2022 [facility] DATE CREATED AUTHOR AUTHOR'S ORGANIZ ATION 02/26/2023 [facility] DATE CREATED AUTHOR AUTHOR'S ORGANIZ ATION 04/01/2023 [facility] DATE CREATED AUTHOR AUTHOR'S ORGANIZ ATION 05/22/2023 [facility] Professional Services DATE CREATED AUTHOR AUTHOR'S ORGANIZ ATION 10/29/2023 [facility] DATE CREATED AUTHOR AUTHOR'S ORGANIZ ATION 03/26/2024 Home[facility] DATE CREATED AUTHOR AUTHOR'S ORGANIZ ATION 07/06/2024 [facility] EPIC DATE CREATED AUTHOR AUTHOR'S ORGANIZ ATION 08/05/2024 [facility] DATE CREATED AUTHOR AUTHOR'S ORGANIZ ATION 09/04/2024 [facility] DATE CREATED AUTHOR AUTHOR'S ORGANIZ ATION 10/21/2024 [facility] DATE CREATED AUTHOR AUTHOR'S ORGANIZ ATION 10/30/2024 [facility] DATE CREATED AUTHOR AUTHOR'S ORGANIZ ATION 11/13/2024 [facility] DATE CREATED AUTHOR AUTHOR'S ORGANIZ ATION 11/19/2024 [facility] DATE CREATED AUTHOR AUTHOR'S ORGANIZ ATION 12/07/2024 [facility] DATE CREATED AUTHOR AUTHOR'S ORGANIZ ATION 12/11/2024 [facility] DATE CREATED AUTHOR AUTHOR'S ORGANIZ ATION 12/31/2024 [facility] Reason for Visit (unrecogniz ed section and content) Reason Comments Weakness Specialty Diagnoses / Procedures Referred By Contac t Referred To Contact Referral ID Status Reason Start Date Expiration Date Visits Re quested Visits Authorized [id number] 1 1 Reason Comments Diabetes Reason Comments Wound Infection Status Reason Specialty Diagnoses / Procedures Referre d By Contact Referred To Contact Diagnoses Diabetic foot infection (HCC) Type 2 diabetes mellitus with left diabetic foot infection (HCC) Diabetic infection of left foot (HCC) Reason Comments Seizures Patient reports that she had 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 Reason Comments Chart Transfer from [facility] Fitz[facility] for MRI Reason Comments Pain NEW PATIENTRT KNEE P AIN, fell 01/19/23 went to [facility] Reason Comments Chest Pain Specialty Diagnoses / Procedures Referred By Contac t Referred To Contact Diagnoses Flank pain Chest pain, unspecified type Referral ID Status Reason Start Date Expiration Date Visits Re quested Visits Authorized [id number] 1 1 Reason Comments Chest Pain Specialty Diagnoses / Procedures Referred By Contac t Referred To Contact Diagnoses Chest pain Chest pain, moderate coronary artery risk Referral ID Status Reason Start Date Expiration Date Visits Re quested Visits Authorized [id number] 1 1 Specialty Diagnoses / Procedures Referred [...] unspecified type Stephany Pelayo PA-C [address] [place] [address] [facility] [place] [address] [facility] [address] [place] [address] Referral ID Status Reason Start Date Expiration Date Visits Re quested Visits Authorized [id number] Closed 05/06/2023 05/05/2024 1 1 Reason Onset [...] laterality, unspecified retinopathy severity Jessica Puentes MD [address] [place] [address] [facility] [address] [place] [address] Referral ID Status Reason Start Date Expiration Date V isits Requested Visits Authorized [id number] New Request 11/09/2023 12/03/2024 1 1 Reason Onset Date Comments Medication Refill 11/12/2023 Reason Comments Establish Care seizures Specialty Diagnoses / Procedures Referred By Richa ruff Referred To Contact Neurology Diagnoses Seizures (HCC) Fab Head MD [address] [address] Virgen Campos MD [address] [address] Referral ID Status Reason Start Date Expiration Date V isits Requested Visits Authorized [id number] Pending Review 01/14/2023 01/15/2024 1 1 Reason Onset Date Comments Medication Refill 12/02/2023 Reason Comments Med Change Request Reason Comments Diabetes Mellitus Gap Closure (Health Maintenance) There a re no preventive care reminders to display for this patient. Specialty Diagnoses / Procedures Referred By Richa ruff Referred To Contact Endocrinology Diagnoses Type 2 diabetes mellitus with diabetic polyneuropathy, with long-term current use of insulin (HCC) Diabetic peripheral neuropathy (HCC) Stephany Pelayo PA-C [address] [place] [address] [facility] [address] [place] [address] Referral ID Status Reason Start Date Expiration Date Visits Re quested Visits Authorized [id number] Closed 05/06/2023 05/05/2024 1 1 Reason Onset Date Comments Medication Refill 12/07/2023 Reason Comments Pain VAS= 9/10 ANIA CONSENT YES Back Pain Thoracic to lumbar p ain Specialty Diagnoses / Procedures Referred By Richa t Referred To Contact Pain Medicine Diagnoses Chronic pain syndrome Muscle spasms of both lower extremities Stephany Pelayo PA-C [facility] S [facility] 2 [place] [address] [facility] Pain [address] [place] [address] Referral ID Status Reason Start Date Expiration Date Visits Re quested Visits Authorized [id number] Closed 09/03/2023 09/02/2024 1 1 Reason Onset Date Comments Medication Refill 12/08/2023 Reason Comments Acute Visit Cough, sore throat x 1 week Reason Onset Date Comments nebulizer supplies 12/14/2023 Reason Onset Date Comments Medication Refill 12/21/2023 Reason Onset Date Comments Medication Refill 01/11/2024 Reason Comments Toe Injury Wound Check Specialty Diagnoses / Procedures Referred By Richa ruff Referred To Contact Diagnoses Diabetic ulcer of left great toe (HCC) Diabetic ulcer of toe of left foot associated with type 2 diabetes mellitus, limited to breakdown of skin (HCC) Referral ID Status Reason Start Date Expiration Date Visits Re quested Visits Authorized [id number] 1 1 Reason Onset Date Comments Care [...] Medication Refill 03/22/2024 Reason Onset Date Comments [facility] 03/30/2024 Reason Comments Toe Pain Specialty Diagnoses / Procedures Referred By Richa t Referred To Contact Diagnoses Elevated troponin SIRS (systemic inflammatory response syndrome) (HCC) Toe osteomyelitis (HCC) Diabetes mellitus due to underlying condition with hyperglycemia, with long-term current use of insulin (HCC) Osteomyelitis of great toe (HCC) Referral ID Status Reason Start Date Expiration Date Visits Re quested Visits Authorized [id number] 1 1 Reason Onset Date Comments Medication Refill 04/12/2024 Reason Onset Date Comments Medication Refill 04/28/2024 Reason Comments Post-op Problem Toe Pain Specialty Diagnoses / Procedures Referred By Richa t Referred To Contact Diagnoses Diabetic foot infection (HCC) Postoperative infection, unspecified type, initial encounter Referral ID Status Reason Start Date Expiration Date Visits Re quested Visits Authorized [id number] 1 1 Reason Comments Pain VAS 8/10 [...] 10/10 Reason Onset Date Comments Zynex 09/29/2024 Reason Onset Date Comments Medication Refill 09/22/2024 Reason Onset Date Comments Medication Refill 10/06/2024 Reason Comments No Show Specialty Diagnoses / Procedures Referred By Richa t Referred To Contact Endocrinology, Diabetes & Metabolism Diagnoses Type 2 diabetes mellitus with diabetic polyneuropathy, with long-term current use of insulin Stephany Pelayo PA-C Phone: tel: fax: [facility] [address] [place] [address] Referral ID Status Reason Start Date Expiration Date V isits Requested Visits Authorized [id number] Pending Review 07/19/2024 08/13/2025 1 1 Reason Onset Date Comments Medication Refill 11/21/2024 Reason Onset Date Comments Medication Refill 12/19/2024 Bridger Garner MD - 06/04/2020 1:07 PM EST H&P Notes (unrecognized sect ion and content) HISTORY AND PHYSICAL Patient Name: Addie Jean Baptiste Admit Date: [id number] MR #: [id number] : 1975 Physicians: Provider Not in System [...] PT/OT Hibiclens Lactate elevated, will monitor Seizures ([facility]) Assessment & Plan Continue home keppra, depakote Bipolar 1 disorder ([facility]) Assessment & Plan No evidence of denys at this time Continue home seroquel, buspar, vraylar Hypertension Assessment & Plan Continue home lopressor Diabetes mellitus type II, uncontrolled ([facility]) Assessment & Plan A1c 10.2% On insulin [...] file Gets together: Not on file Attends congregation service: Not on file Active member of [...] pick it up tomorrow at pharmacy - [facility] in [place] . FLUoxetine (PROZAC) 40 MG capsule Take [...] Associated Order(s): Critical Care ED [facility] NAME: Addie Jean Baptiste AGE: 45 y.o. : 1975 VISIT DATE: 06/03/2020 CSN: [id number] PCP: Provider Not in System Chief Complaint Patient presents with Wound Infection For the past week her left first toe has been inflamed. Two days ago she became aware of some serous drainage from her toe. On 06/02/2020 she was seen at [facility], and was started on Keflex at [...] file Gets together: Not on file Attends congregation service: Not on file Active member of [...] toe. Pt verbalizes was at [facility] yesterday and they did nothing for me . Pt did acknowledge she got antibiotics. Pt in nad Called [facility] [phone] to see if they could fax me records from yesterdays ER visit, talked to Emma states she will fax the records documented in this encounter Care Team (unrecognized sect ion and content) Team Status: Active Member Role Status Dates Laurent Franco NP-C Primary Care Provider Active Team Status: Inactive Member Role Status Dates Laurent Franco NP-C Primary Care Provider Active Jacob Farfan DO Emergency Provider Active Ezekiel Mathew DO Admit Provider Active Jeana Martini MD Attending Provider Active Lawrence Kim MD Other Provider Active JAS PlattM Other Provider Active Shameka Romero MD Other Provider Active Educator Senior Clinical Relationship Specialty Start Date End Date Cem Mario DO [address] [place] [address] PCP - General Family Medicine 05/28/15 Team Status: Active Member Role Status Dates Kip W [place] , FINANCIAL RECORDING CLERK-C Primary Care Provider Active Jacob Farfan , DO Emergency Provider Active Ezekiel Mathew , DO Admit Provider, Attending Pr ovidgabriela Active Team Status: Inactive Member Role Status Dates Kip W [place] , FINANCIAL RECORDING CLERK-C Primary Care Provider Active Jacob Farfan , DO Emergency Provider Active Ezekiel Mathew , DO Admit Provider Active Lawrence Kim MD Other Provider Active Swapnil Castillo DPM Other Provider Active Shameka Romero MD Other Provider Active Jeana Martini MD Attending Provider Active Team Status: Inactive Member Role Status Dates Kip W Nattyruma , FINANCIAL RECORDING CLERK-C Primary Care Provider Active Shameka Romero MD Attending Provider Active Educator Senior Clinical Relationship Specialty Start Date End Date System, Provider Not In PCP - General 01/12/23 Educator Senior Clinical Relationship Specialty Start Date End Date System, Provider Not In PCP - General 01/12/23 Educator Senior Clinical Relationship Specialty Start Date End Date System, Provider Not In PCP - General 01/12/23 Educator Senior Clinical Relationship Specialty Start Date End Date System, Provider Not In PCP - General 01/12/23 03/29/23 Enrique Hebert DO [address] [place] [address] PCP - General Primary Care 03/30/23 Educator Senior Clinical Relationship Specialty Start Date End Date Enrique Hebert DO [address] [place] [address] PCP - General Primary Care 03/30/23 Educator Senior Clinical Relationship Specialty Start Date End Date Enrique Hebert DO [address] [place] [address] PCP - General Primary Care 03/30/23 Educator Senior Clinical Relationship Specialty Start Date End Date Enrique pisano DO [address] [place] [address] PCP - General Primary Care 03/30/23 Educator Senior Clinical Relationship Specialty Start Date End Date Enrique Hebert DO [address] [place] [address] PCP - General Primary Care 03/30/23 Educator Senior Clinical Relationship Specialty Start Date End Date Enrique Hebert DO [address] [place] [address] PCP - General Primary Care 03/30/23 Educator Senior Clinical Relationship Specialty Start Date End Date Enrique Hebert DO [address] [place] [address] PCP - General Primary Care 03/30/23 Educator Senior Clinical Relationship Specialty Start Date End Date Enrique Hebert DO [address] [place] [address] PCP - General Primary Care 03/30/23 Educator Senior Clinical Relationship Specialty Start Date End Date Enrique Hebert DO [address] [place] [address] PCP - General Primary Care 03/30/23 Educator Senior Clinical Relationship Specialty Start Date End Date Enrique Hebert DO [address] [place] [address] PCP - General Primary Care 03/30/23 Educator Senior Clinical Relationship Specialty Start Date End Date Enrique Hebert DO [address] [place] [address] PCP - General Primary Care 03/30/23 Educator Senior Clinical Relationship Specialty Start Date End Date Enrique Hebert DO [address] [place] [address] [place] [address] PCP - General Primary Care 03/30/23 Educator Senior Clinical Relationship Specialty Start Date End Date Enrique pisano DO [address] [place] [address] PCP - General Primary Care 03/30/23 Educator Senior Clinical Relationship Specialty Start Date End Date Enrique pisano DO [address] [place] [address] PCP - General Primary Care 03/30/23 Educator Senior Clinical Relationship Specialty Start Date End Date aliyaEnrique DO [address] [place] [address] PCP - General Primary Care 03/30/23 Educator Senior Clinical Relationship Specialty Start Date End Date aliya Enrique, DO [address] [place] [address] PCP - General Primary Care 03/30/23 Educator Senior Clinical Relationship Specialty Start Date End Date aliay DO Enrique [address] [place] [address] PCP - General Primary Care 03/30/23 Educator Senior Clinical Relationship Specialty Start Date End Date Sheng pisanoDO jim [address] [place] [address] PCP - General Primary Care 03/30/23 Educator Senior Clinical Relationship Specialty Start Date End Date aliya DO Enrique [address] [place] [address] PCP - General Primary Care 03/30/23 Educator Senior Clinical Relationship Specialty Start Date End Date Enrique Hebert DO [address] [place] [address] PCP - General Primary Care 03/30/23 Educator Senior Clinical Relationship Specialty Start Date End Date Enrique Hebert DO [address] [place] [address] PCP - General Primary Care 03/30/23 04/29/23 No, Physician [facility] PCP - General 04/30/23 05/05/23 Stephany Pelayo PA-C [address] [place] [address] PCP - General Internal Medicine 05/06/23 Educator Senior Clinical Relationship Specialty Start Date End Date Stephany Pelayo PA-C [address] [place] [address] PCP - General Internal Medicine 05/06/23 Educator Senior Clinical Relationship Specialty Start Date End Date Stephany Pelayo PA-C [address] [place] [address] PCP - General Internal Medicine 05/06/23 Marcia Reynoso, program arrangerSenior Environmental Engineer 05/14/23 Educator Senior Clinical Relationship Specialty Start Date End Date Stephany Pealyo PA-C [address] [place] [address] PCP - General Internal Medicine 05/06/23 Marcia Reynoso, program arrangerSenior Environmental Engineer 05/14/23 Educator Senior Clinical Relationship Specialty Start Date End Date Stephany Pelayo PA-C [address] [place] [address] PCP - General Internal Medicine 05/06/23 Marcia Reynoso, program arrangerSenior Environmental Engineer 05/14/23 Educator Senior Clinical Relationship Specialty Start Date End Date Stephany Pelayo PA-C [address] [place] [address] PCP - General Internal Medicine 05/06/23 Marcia Reynoso, program arrangerSenior Environmental Engineer 05/14/23 Educator Senior Clinical Relationship Specialty Start Date End Date Stephany Pelayo PA-C [address] [place] [address] PCP - General Internal Medicine 05/06/23 Marcia Reynoso, program arrangerSenior Environmental Engineer 05/14/23 Educator Senior Clinical Relationship Specialty Start Date End Date Enrique Hebert [address] [place] [address] PCP - General Primary Care 03/30/23 04/29/23 No, Physician [facility] PCP - General 04/30/23 05/05/23 Stephany Pelayo PA-C [address] [place] [address] PCP - General Internal Medicine 05/06/23 Marcia Reynoso, program arrangerSenior Environmental Engineer 05/14/23 Educator Senior Clinical Relationship Specialty Start Date End Date Stephany Pelayo PA-C [address] [place] [address] PCP - General Internal Medicine 05/06/23 Marcia Reynoso, program arrangerSenior Environmental Engineer 05/14/23 Educator Senior Clinical Relationship Specialty Start Date End Date Stephany Pelayo PA-C [address] [place] [address] PCP - General Internal Medicine 05/06/23 Marcia Reynoso, program arrangerSenior Environmental Engineer 05/14/23 Educator Senior Clinical Relationship Specialty Start Date End Date Stephany Pelayo PA-C [address] [place] [address] PCP - General Internal Medicine 05/06/23 Marcia Reynoso, program arrangerSenior Environmental Engineer 07/30/23 Educator Senior Clinical Relationship Specialty Start Date End Date Stephany Pelayo PA-C [address] [place] [address] PCP - General Internal Medicine 05/06/23 Educator Senior Clinical Relationship Specialty Start Date End Date Lexy Leach MD [address] [place] [phone] PCP - General Clinical Cardiac Electrophysiology 09/23/16 Cherelle Fierro MD [address] [place] [address], [address] [phone] Family Medicine 01/30/12 Cem Mario DO [address] [place] [address] Consulting Physician Family Medicine 03/20/17 Educator Senior Clinical Relationship Specialty Start Date End Date Stephany Pelayo PA-C [address] [place] [address] PCP - General Internal Medicine 05/06/23 Educator Senior Clinical Relationship Specialty Start Date End Date Stephany Pelayo PA-C [address] [place] [address] PCP - General Internal Medicine 05/06/23 Educator Senior Clinical Relationship Specialty Start Date End Date Stephany Pelayo PA-C [address] [facility] [address] [place] [address] PCP - General Internal Medicine 05/06/23 Educator Senior Clinical Relationship Specialty Start Date End Date Stephany Pelayo PA-C [address] [place] [address] 2 [place] [address] PCP - General Internal Medicine 05/06/23 Educator Senior Clinical Relationship Specialty Start Date End Date Stephany Pelayo PA-C [address] [place] [address] 2 [place] [address] PCP - General Internal Medicine 05/06/23 Marcia Reynoso, program arrangerSenior Environmental Engineer 09/21/23 Educator Senior Clinical Relationship Specialty Start Date End Date Stephany Pelayo PA-C [address] [place] [address] 2 [place] [address] PCP - General Internal Medicine 05/06/23 Marcia Reynoso, program arrangerSenior Environmental Engineer 09/21/23 09/23/23 Educator Senior Clinical Relationship Specialty Start Date End Date Stephany Pelayo PA-C [address] [place] [address], [place] [address] PCP - General Internal Medicine 05/06/23 Educator Senior Clinical Relationship Specialty Start Date End Date Stephany Pelayo PA-C [address] [place] [address] 2 [place] [address] PCP - General Internal Medicine 05/06/23 Educator Senior Clinical Relationship Specialty Start Date End Date Stephany Pelayo PA-C [facility] [address] [facility] [address] [place] [address] PCP - General Internal Medicine 05/06/23 Educator Senior Clinical Relationship Specialty Start Date End Date Stephany Pelayo PA-C [address] [address] PCP - General Internal Medicine 05/06/23 Educator Senior Clinical Relationship Specialty Start Date End Date Stephany Pelayo PA-C [address] [place] [address] PCP - General Internal Medicine 05/06/23 Educator Senior Clinical Relationship Specialty Start Date End Date Stephany Pelayo PA-C [address] [place] [address] PCP - General Internal Medicine 05/06/23 Educator Senior Clinical Relationship Specialty Start Date End Date Stephany Pelayo PA-C [address] [place] [address] PCP - General Internal Medicine 05/06/23 Educator Senior Clinical Relationship Specialty Start Date End Date Lexy Leach MD [address] [place] [phone] PCP - General Clinical Cardiac Electrophysiology 09/23/16 Cherelle Fierro MD [address] [place] [address], [address] [phone] Family Medicine 01/30/12 Cem Mario DO [address] [facility] [place] [address] Consulting Physician Family Medicine 03/20/17 Educator Senior Clinical Relationship Specialty Start Date End Date Stephany Pelayo PA-C [address] [place] [address] PCP - General Internal Medicine 05/06/23 Educator Senior Clinical Relationship Specialty Start Date End Date Stephany Pelayo PA-C [address] [place] [address] PCP - General Internal Medicine 05/06/23 Educator Senior Clinical Relationship Specialty Start Date End Date Stephany Pelayo PA-C [address] [place] [address] PCP - General Internal Medicine 05/06/23 Educator Senior Clinical Relationship Specialty Start Date End Date Stephany Pelayo PA-C [address] [place] [address] PCP - General Internal Medicine 05/06/23 Educator Senior Clinical Relationship Specialty Start Date End Date Stephany Pelayo PA-C [address] [place] [address] PCP - General Internal Medicine 05/06/23 Educator Senior Clinical Relationship Specialty Start Date End Date Stephany Pelayo PA-C [address] [facility] [address] [place] [address] PCP - General Internal Medicine 05/06/23 Educator Senior Clinical Relationship Specialty Start Date End Date Stephany Pelayo PA-C [address] [place] [address] PCP - General Internal Medicine 05/06/23 Educator Senior Clinical Relationship Specialty Start Date End Date Stephany Pelayo PA-C [address] [place] [address] PCP - General Internal Medicine 05/06/23 Educator Senior Clinical Relationship Specialty Start Date End Date Stephany Pelayo PA-C [address] [facility] [address] [place] [address] PCP - General Internal Medicine 05/06/23 Educator Senior Clinical Relationship Specialty Start Date End Date Stephany Pelayo PA-C [address] [facility] [address] [place] [address] PCP - General Internal Medicine 05/06/23 Educator Senior Clinical Relationship Specialty Start Date End Date Stephany Pelayo PA-C [address] [facility] [address] [place] [address] PCP - General Internal Medicine 05/06/23 Educator Senior Clinical Relationship Specialty Start Date End Date Stephany Pelayo PA-C [address] [facility] [address] [place] [address] PCP - General Internal Medicine 05/06/23 Educator Senior Clinical Relationship Specialty Start Date End Date Stephany Pelayo PA-C [address] [facility] [address] [place] [address] PCP - General Internal Medicine 05/06/23 Educator Senior Clinical Relationship Specialty Start Date End Date Stephany Pelayo PA-C [address] [facility] 2 [place] [address] PCP - General Internal Medicine 05/06/23 Swapnil Hooks Community Health Worker Case Management 01/27/24 Educator Senior Clinical Relationship Specialty Start Date End Date Stephany Pelayo PA-C [address] [facility] 2 [place] [address] PCP - General Internal Medicine 05/06/23 Jessee, Swapnil R Community Health Worker Case Management 01/27/24 Educator Senior Clinical Relationship Specialty Start Date End Date Stephany Pelayo PA-C [address] [place] [address] PCP - General Internal Medicine 05/06/23 Swapnil Hooks Community Health Worker Case Management 01/27/24 Educator Senior Clinical Relationship Specialty Start Date End Date Stephany Pelayo PA-C [address] [place] [address] PCP - General Internal Medicine 05/06/23 Swapnil Hooks Community Health Worker Case Management 01/27/24 Educator Senior Clinical Relationship Specialty Start Date End Date Stephany Pelayo PA-C [address] [place] [address] PCP - General Internal Medicine 05/06/23 Swapnil Hooks Community Health Worker Case Management 01/27/24 Educator Senior Clinical Relationship Specialty Start Date End Date Stephany Pelayo PA-C [address] [place] [address] PCP - General Internal Medicine 05/06/23 Educator Senior Clinical Relationship Specialty Start Date End Date Stephany Pelayo PA-C [address] [place] [address] PCP - General Internal Medicine 05/06/23 Swapnil Hooks Community Health Worker Case Management 01/27/[address] Dietitian Dietitian/Nutritionis t 02/04/24 Educator Senior Clinical Relationship Specialty Start Date End Date Stephany Pelayo PA-C [address] [place] [address] PCP - General Internal Medicine 05/06/23 Swapnil Hooks Community Health Worker Case Management 01/27/24 Educator Senior Clinical Relationship Specialty Start Date End Date Stephany Pelayo PA-C [address] [facility] [address] [place] [address] PCP - General Internal Medicine 05/06/23 Swapnil Hooks Community Health Worker Case Management 01/27/24 Radha Davalos, JULI Dietitian Dietitian/Nutritionis t 02/04/24 Educator Senior Clinical Relationship Specialty Start Date End Date Stephany Pelayo PA-C [address] [place] [address] PCP - General Internal Medicine 05/06/23 Swapnil Hooks Community Health Worker Case Management 01/27/2403/10 Educator Senior Clinical Relationship Specialty Start Date End Date Stephany Pelayo PA-C [address] [facility] 2 [place] [address] PCP - General Internal Medicine 05/06/23 Educator Senior Clinical Relationship Specialty Start Date End Date Stephany Pelayo PA-C [address] [facility] [address] [place] [address] PCP - General Internal Medicine 05/06/23 Educator Senior Clinical Relationship Specialty Start Date End Date Stephany Pelayo PA-C [address] [facility] [address] [place] [address] PCP - General Internal Medicine 05/06/23 Educator Senior Clinical Relationship Specialty Start Date End Date Stephany Pelayo PA-C [address] [facility] [address] [place] [address] PCP - General Internal Medicine 05/06/23 Educator Senior Clinical Relationship Specialty Start Date End Date Stephany Pelayo PA-C [address] [place] [address] PCP - General Internal Medicine 05/06/23 Educator Senior Clinical Relationship Specialty Start Date End Date Stephany Pelayo PA-C [address] [place] [address] PCP - General Internal Medicine 05/06/23 Educator Senior Clinical Relationship Specialty Start Date End Date Stephany Pelayo PA-C [address] [place] [address] PCP - General Internal Medicine 05/06/23 Educator Senior Clinical Relationship Specialty Start Date End Date Stephany Pelayo PA-C [address] [place] [address] PCP - General Internal Medicine 05/06/23 Educator Senior Clinical Relationship Specialty Start Date End Date Stephany Pelayo PA-C [address] [place] [address] PCP - General Internal Medicine 05/06/23 Educator Senior Clinical Relationship Specialty Start Date End Date Stephany Pelayo PA-C [address] [place] [address] PCP - General Internal Medicine 05/06/23 Educator Senior Clinical Relationship Specialty Start Date End Date Stephany Pelayo PA-C [address] [place] [address] PCP - General Internal Medicine 05/06/23 Educator Senior Clinical Relationship Specialty Start Date End Date Stephany Pelayo PA-C [address] [place] [address] PCP - General Internal Medicine 05/06/23 Educator Senior Clinical Relationship Specialty Start Date End Date Stephany Pelayo PA-C [address] [place] [address] PCP - General Internal Medicine 05/06/23 Educator Senior Clinical Relationship Specialty Start Date End Date Stephany Pelayo PA-C [address] [place] [address] PCP - General Internal Medicine 05/06/23 Educator Senior Clinical Relationship Specialty Start Date End Date Stephany Pelayo PA-C [address] [place] [address] PCP - General Internal Medicine 05/06/23 Educator Senior Clinical Relationship Specialty Start Date End Date Unallocated, Noms Brendan, [address] [place] [address] PCP - General Family Medicine 07/05/24 Jim Velez MD [address] [place] [address] Referring Physician Pain Medicine 07/05/24 Educator Senior Clinical Relationship Specialty Start Date End Date Stephany Pelayo PA-C [address] [place] [address] PCP - General Internal Medicine 05/06/23 Educator Senior Clinical Relationship Specialty Start Date End Date Stephany Pelayo PA-C [address] [place] [address] PCP - General Internal Medicine 05/06/23 Educator Senior Clinical Relationship Specialty Start Date End Date Stephany Pelayo PA-C [address] [facility] [address] [place] [address] PCP - General Internal Medicine 05/06/23 Educator Senior Clinical Relationship Specialty Start Date End Date Stephany Pelayo PA-C [address] [facility] [address] [place] [address] PCP - General Internal Medicine 05/06/23 Educator Senior Clinical Relationship Specialty Start Date End Date Stephany Pelayo PA-C [address] [facility] [address] [place] [address] PCP - General Internal Medicine 05/06/23 Educator Senior Clinical Relationship Specialty Start Date End Date Stephany Pelayo PA-C [address] [facility] [address] [place] [address] PCP - General Internal Medicine 05/06/23 Educator Senior Clinical Relationship Specialty Start Date End Date Stephany Pelayo PA-C [address] [facility] [address] [place] [address] PCP - General Internal Medicine 05/06/23 Educator Senior Clinical Relationship Specialty Start Date End Date Stephany Pelayo PA-C [address] [facility] [address] [place] [address] PCP - General Internal Medicine 05/06/23 Educator Senior Clinical Relationship Specialty Start Date End Date Stephany Pelayo PA-C [address] [facility] [address] [place] [address] PCP - General Internal Medicine 05/06/23 Educator Senior Clinical Relationship Specialty Start Date End Date Stephany Pelayo PA-C [address] [place] [address] PCP - General Internal Medicine 05/06/23 Educator Senior Clinical Relationship Specialty Start Date End Date Stephany Pelayo PA-C [address] [place] [address] PCP - General Internal Medicine 05/06/23 Educator Senior Clinical Relationship Specialty Start Date End Date Stephany Pelayo PA-C [address] [place] [address] PCP - General Internal Medicine 05/06/23 Educator Senior Clinical Relationship Specialty Start Date End Date Lexy sultana MD [address] [place] [address] PCP - General Clinical Cardiac Electrophysiology 09/23/16 Cherelle Fierro MD [address] [place] [phone] Family Medicine 01/30/12 Cem Mario, [address] [place] [phone] Consulting Physician Family Medicine 03/20/17 Educator Senior Clinical Relationship Specialty Start Date End Date Stephany Pelayo PA-C [address] [place] [address] PCP - General Internal Medicine 05/06/23 11/14/24 Educator Senior Clinical Relationship Specialty Start Date End Date Radha Dias DO PCP - General Family Medicine 03/10/22 12/02/24 Team Status: Inactive Member Role Status Dates Ben D Katko , DO Attending Provider Active S tart: December 28, 2024 End: December 28, 2024 Ordered Prescriptions (unrec ognized section and content) [...] dose, Starting on Thu10/07/22 at 0341, Until 10/07/22 at 0341, Imaging Protocol Orders 0341 (Given [...] at Radiology exam, 1 dose, Starting on e 10/07/22 at 0427, Until Discontinued, Imaging Protocol Orders [...] Casarez LPN)2152 (Given - Provider: Dannielle Jeong, JAEL) 1018 (Given - Provider: Swapnil Maldonado RN) levothyroxine (SYNTHROID, LEVOTHROID) tablet 75 mcg [...] psych meds.) 0803 (Given - Provider: Swapnil Maldonado RN) mometasone-formoterol (DULERA) 200-5 mcg/actuation inhaler 2 puff [...] (after last modification) on Thu02/19/23 at 2100 2159 (Given - Provider: Dannielle Jeong RN) 1017 [...] Nightly, First dose (after last modification) on Thu02/19/23 at 2100, May cause QT interval prolongation. 2151 (Given - Provider: Dannielle Jeong RN) QUEtiapine (SEROQUEL) tablet 800 mg (CANCELED) 800 mg, Oral, Nightly, First dose on Thu02/18/23 at 0400, May cause QT interval prolongation. 0404 (Given - Provider: Monique Grande RN)2153 (Given - Provider: Monique Grande RN) regadenoson (LEXISCAN) injection 0.4 mg (COMPLETED) 0.4 mg, Intravenous, Once, On Thu02/18/23 at 0945, For 1 dose 0920 (Given - Provider: Sandra Lorenzo, JAEL) sodium chloride (PF) (NS) flush 5 mL(Linked Group 1) 5 mL, Intravenous, Every 8 hours scheduled, First dose on Thu02/18/23 at 0030, Saline lock 0415 (Given - Provider: Monique Grande RN - Comment: not verified prior)0600 (Canceled Entry - Provider: Monique Grande RN)1400 (Given - Provider: Sandra Raman, JAEL)2151 (Given - Provider: Monique Grande RN) 0600 (Canceled Entry - Provider: Rafaela Casarez LPN)1400 (Canceled Entry - Provider: Rafaela Casarez LPN)2200 (Not Given - Provider: Dannielle Jeong RN - Reason: Order parameters not met - Comment: IV infusing) 0600 (Not Given - Provider: Dannielle Jeong RN - Reason: Order parameters not met - Comment: IV infusing)1400 (Not Given - Provider: Swapnil Maldonado RN - Reason: Other - Comment: discharging) sodium chloride 0.9% (NS) bolus 500 mL (COMPLETED) 500 mL, Intravenous, at 967.7 mL/hr, Once, On Danelle 02/19/23 at 0500, For 1 dose 0442 (New [...] () 100 mL/hr, Intravenous, Continuous, Starting on Danelle 02/19/23 at 0700, For 10 hours 0700 (Canceled Entry - Provider: Rafaela Casarez LPN)0905 (New Bag - Provider: Rafaela Casarez LPN)0920 (Rate/Dose Change - Provider: Rafaela Casarez LPN - Comment: per verbal)1135 (Rate/Dose Verify - Provider: Rafaela Casarez LPN)1217 (Rate/Dose Change - Provider: Rafaela Casarez LPN)1344 (Rate/Dose Verify - Provider: Rafaela Casarez LPN) sodium chloride 0.9% (NS) 100 mL/hr, Intravenous, Continuous, Starting on Danelle 02/19/23 at 1415, For 24 hours 1415 (Canceled Entry - Provider: Rafaela Casarez LPN - Comment: duplicate)6181 (New Bag - Provider: Dannielle Jeong, RN) PRN Medication Order 02/18/2023 02/19/2023 02/20/2023 [...] PRN, anxiety, Starting on Danelle 02/19/23 at 6395 7808 (Given - Provider: Dannielle Jeong, JAEL) magnesium hydroxide (MOM) 400 mg/5 mL suspension [...] NOT CRUSH OR CHEW. 0357 (Return to Cabinet - Provider: Monique Grande RN) ondansetron (ZOFRAN) [...] 25 Units, Subcutaneous, Nightly, First dose on 03/29/23 at 2100, Do not mix with other [...] 1 dose 1419 (Given - Provider: Karon Desai, JAEL) pantoprazole (PROTONIX) EC tablet 40 mg 40 mg, Oral, Daily, First dose on 03/30/23 at 0900, DO NOT CRUSH OR CHEW. 09 (Given - Provid er: Emily Granados LPN) pregabalin (LYRICA) capsule 75 mg 75 mg, Oral, 2 times daily, First dose on 03/29/23 at 2100 2010 (Given - Provider: Dannielle Bui RN) 0933 (Given - Provider: Emily Granados LPN) QUEtiapine [...] PRN, indigestion, heartburn, Starting on 03/29/23 at 2024, Give with Food flu vacc [id number] 6mos up(PF) (FLUZONE QUAD/FLULAVAL QUAD/FLUARIX QUAD) syringe [...] 232 (Given - Provider: Laura Lechuga RN) busPIRone (BUSPAR) tablet 30 mg 30 mg, Oral, Every 12 hours scheduled, First dose on Thu01/12/24 at 2200 0905 (Given - Provider: Laura Levin RN)2310 (Given - Provider: Donnell Fowler RN) 09 (Given - Provider: Laura Levin RN)232 (Given - Provider: Laura Lechuga RN) 09 (Given - Provider: Kvng Portlilo) citalopram (CELEXA) tablet 20 mg 20 mg, Oral, Daily, First dose on Thu01/13/24 at 0900 0905 (Given - Provider: Laura Levin RN) 09 (Given - Provider: Laura Levin RN) 09 (Given - Provider: Kvng Portillo) dextrose (GLUTOSE) [...] Infection 0614 (Given - Provider: Gely Rincon LPN)231 (Given - Provider: Donnell Fowler RN) 06 (Given - Provider: Donnell Fowler RN)232 (Given - Provider: Laura Lechuga RN) 0616 [...] 1100 0905 (Given - Provider: Laura Levin RN)231 (Given - Provider: Donnell Fowler RN) 09 (Given - Provider: Laura Levin RN)232 (Given - Provider: Laura Lechuga RN) 0914 [...] at 2300, May cause QT interval prolongation. 231 (Given - Provider: Donnell Fowler RN) 232 [...] Laura Levin RN)2200 (Given - Provider: Laura Lechuga, RN) 0617 (Given - Provider: Laura Lechuga [...] daily PRN, anxiety, Starting on Thu01/12/24 at 2113 melatonin Tab 5 mg 5 mg, Oral, Nightly PRN, Sleep, Starting on Thu01/12/24 at 1823, If still awake in 1 hour proceed to trazodone (Desyrel) 2036 (Given - Provider: Donnell Fowler RN) naloxone (NARCAN) injection 0.1 mg(Linked Group 2) 0.1 mg, Intravenous, As needed, opioid reversal, For respiratory rate less than or equal to 8 per minute., Starting on Thu01/12/24 at 182, Mix nalOXone (NARCAN) 0.4 mg (1mL) with 9 mL of Normal Saline to total 10 mL. Administer 0.1 mg (2.5mL) IV Push every 2 minutes until respiratory rate is 10 or greater. naloxone (NARCAN) injection 0.4 mg(Linked Group 2) 0.4 mg, Intravenous, As needed, opioid reversal, patient is pulseless, breathless, and unresponsive, Starting on Thu01/12/24 at 182, Call a code first, then administer naloxone dose undiluted IV Push over 30 seconds. ondansetron (ZOFRAN) injection 4 mg(Linked Group 3) 4 mg, Intravenous, Every 6 hours PRN, nausea, vomiting, Starting on Thu01/12/24 at 1823, Use oral route first, if tolerated. ondansetron [...] severe pain, Starting on Thu01/12/24 at 1823 1216 (Given - Provider: Laura Levin RN)2036 (Given - Provider: Donnell Fowler RN) 0504 (Given - Provider: Donnell Fowler RN)1225 (Given - Provider: Laura Levin, RN)1828 (Given - Provider: Laura Levin, JAEL) 0049 (Given - Provider: Laura Lechuga, RN)0856 (Given - Provider: Pippa Quiles RN) senna (SENOKOT) tablet 8.6 mg 8.6 mg (1 tablet), Oral, 2 times daily PRN, constipation, Starting on Thu01/12/24 at 1823 sodium chloride (PF) (NS) flush 5 mL(Linked Group 1) 5 mL, Intravenous, As needed, line care, Starting on Thu01/12/24 at 1823 sodium chloride 0.9% (NS)(Linked Group 1) 0-150 mL/hr, Intravenous, As needed, To flush line after IV infusions when no maintenance IV ordered or a compatibility issue. Infuse 20ml at the same rate as the secondary infusion, Starting on Thu01/12/24 at 1823, Run as Primary IV. NOT intended for KVO. traZODone (DESYREL) tablet 50 mg 50 mg, Oral, Nightly PRN, sleep, Starting on Thu01/12/24 at 1823, To be administered 1 hour after melatonin if still awake. May repeat x 1 dose in 30 minutes if still awake. Linked Groups Order Group 1: Saline lock IV (CANCELED) Routine, Continuous, Starting on Thu01/12/24 at 1824, Until Specified And sodium chloride (PF) (NS) flush 5 mLJump to med 5 mL, Intravenous, As needed, line care, Starting on Thu01/12/24 at 1823 And sodium chloride (PF) (NS) flush 5 [...] the secondary infusion, Starting on Thu01/12/24 at 1823, Run as Primary IV. NOT intended for [...] Lujan RN) 2122 (Given - Provider: Dannielle Jeong RN) busPIRone (BUSPAR) tablet 30 mg 30 mg, Oral, 2 times daily, First dose on Thu03/25/24 at 0900 0905 (Given - Provider: Nicolette Coffey RN)2036 (Given - Provider: Ruby Lujan RN) 826 (Given - Provider: Nicolette Coffey RN)2123 (Given - Provider: Dannielle Jeong, RN) 0857 (Given - Provider: Ifeoma Waterman, RN) cefadroxil (DURICEF) capsule 500 mg 500 mg, Oral, Every 12 hours scheduled, First dose on Thu03/30/24 at 1500, Indication: Skin/Soft Tissue Infection 904 (Given - Provider: Nicolette Coffey, RN)2036 (Given - Provider: Ruby Lujan RN) 08 (Given - Provider: Nicolette Coffey RN)2124 (Given - Provider: Dannielle Jeong, JAEL) 1130 (Given - Provider: Ifeoma Waterman, RN) citalopram (CELEXA) tablet 40 mg 40 mg, Oral, Daily, First dose on Thu03/25/24 at 0900 09 (Given - Provider: Nicolette Coffey RN) 0828 (Given - Provider: Nicolette Coffey, JAEL) 0857 (Given - Provider: Ifeoma Waterman, JAEL) enoxaparin (LOVENOX) syringe 40 mg 40 mg, Subcutaneous, 2 times daily, First dose (after last modification) on Thu03/30/24 at 1000, Administer in abdomen unless otherwise directed by prescriber. Notify physician if patient refuses., Indication: VTE Prophylaxis 904 (Given - Provider: Nicolette Coffey RN)2039 (Given - Provider: Ruby Lujan RN) 08 (Given - Provider: Nicolette Coffey RN)2125 (Given - Provider: Dannielle Jeong, JAEL) 0856 (Given - Provider: Ifeoma Waterman, JAEL) [...] physician 2124 (Given - Provider: Dannielle Jeong, RN) insulin lispro (AdmeLOG,HumaLOG) injection 0-15 Units(Linked [...] For Downtime Calculator, use: Insulin SC NIGHTtime 2099 (Given - Provider: Ruby Luajn, RN) 2131 (Not Given - Provider: Dannielle Jeong, RN - Reason: Order parameters not met) insulin [...] Reason: Contraindicated) 0858 (Given - Provider: Ifeoma Waterman, JAEL)1130 (Given - Provider: Ifeoma Waterman RN - Comment: BS from pump) lamoTRIgine (LAMICTAL) tablet 25 mg 25 mg, Oral, 2 times daily, First dose on Thu03/25/24 at 0900 0905 (Given - Provider: Nicolette Coffey RN)2038 (Given - Provider: Ruby Lujan RN) 0828 (Given - Provider: Nicolette Coffey RN)2127 (Given - Provider: Dannielle Jeong, JAEL) 0857 (Given - Provider: Ifeoma Waterman, JAEL) levothyroxine (SYNTHROID, LEVOTHROID) tablet 75 mcg 75 [...] RN) 0637 (Given - Provider: Dannielle Jeong, RN) metoprolol tartrate (LOPRESSOR) tablet 25 mg 25 mg, Oral, 2 times daily, First dose on Thu04/01/24 at 2100 0905 (Given - Provider: Nicolette Coffey RN)2037 (Given - Provider: Ruby Lujan RN) 827 (Given - Provider: Nicolette Coffey RN)2123 (Given - Provider: Dannielle Jeong, RN) 0857 (Given - Provider: Ifeoma Waterman, JAEL) nicotine (NICODERM CQ) 14 mg/24 hr 1 patch 1 patch, Transdermal, Administer over 24 Hours, Daily, First dose (after last modification) on Thu03/30/24 at 2130, U/P Listed Hazardous Drug. 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 904 (Given - Provider: Nicolette Coffey RN) 0849 (Given - Provider: Nicolette Coffey RN) 0857 (Given - Provider: Ifeoma Waterman, JAEL) pregabalin (LYRICA) capsule 75 mg 75 mg, Oral, 2 times daily, First dose on Thu03/25/24 at 0400 0905 (Given - Provider: Nicolette Coffey RN)2036 (Given - Provider: Ruby Lujan RN) 08 (Given - Provider: Nicolette Coffey RN)2122 (Given - Provider: Dannielle Jeong, JAEL) 0857 (Given - Provider: Ifeoma Waterman, JAEL) QUEtiapine (SEROQUEL) tablet 800 mg 800 mg, Oral, Nightly, First dose on Thu03/25/24 at 0400, May cause QT interval prolongation. 2036 (Given - Provider: Ruby Lujan RN) 2124 (Given - Provider: Dannielle Jeong, RN) sodium chloride (PF) (NS) flush 5 mL(Linked Group 2) 5 mL, Intravenous, Every 8 hours scheduled, First dose on Thu03/25/24 at 0600, Saline lock 0527 (Given - Provider: Ruby Lujan RN)1400 (Canceled Entry - Provider: Nicolette Coffey, JAEL)2200 (Given - Provider: Ruby Lujan RN) 0600 (Given - Provider: Ruby Lujan RN)1400 (Canceled Entry - Provider: Nicolette Coffey, JAEL)212 (Given - Provider: Dannielle Jeong, RN) 0600 (Not Given - Provider: Dannielle Jeong, JAEL - Reason: Order parameters not met)1400 (Canceled Entry - Provider: Ifeoma Waterman, JAEL - Comment: no peripherial line) timolol (TIMOPTIC) 0.5 % ophthalmic solution 1 drop 1 drop, Left Eye, Daily, First dose on Thu03/25/24 at 0900 0910 (Given - Provider: Nicolette Coffey, JAEL) 0829 (Given - Provider: Nicolette Coffey, JAEL) 0858 (Given - Provider: Ifeoma Waterman, JAEL) tiZANidine (ZANAFLEX) tablet 4 mg 4 mg, Oral, Nightly, First dose (after last modification) on Thu03/25/24 at 0400 2152 (Given - Provider: Ruby Lujan, JAEL) 2123 (Given - Provider: Dannielle Jeong, RN) PRN Medication Order 04/02/2024 04/03/2024 04/04/2024 albuterol [...] Ruby Lujan RN)0904 (Given - Provider: Nicolette Coffey RN)1313 (Given - Provider: Socorro Zepeda RN)1721 (Given - Provider: Nicolette Coffey, JAEL)2152 (Given - Provider: Ruby Lujan RN) 0828 (Given - Provider: Nicolette Coffey, JAEL)1244 (Given - Provider: iNcolette Coffey, JAEL)1757 (Given - Provider: Nicolette Coffey RN)2137 (Given - Provider: Dannielle Jeong, JAEL) 0422 (Given - Provider: Dannielle Jeong, RN)0857 (Given - Provider: Ifeoma Waterman, JAEL)1335 (Given - Provider: Ifeoma Waterman, RN) sodium chloride (PF) (NS) flush 5 mL(Linked Group 4) 5 mL, Intravenous, As needed, line care, Starting on Danelle 03/24/24 at 2020 sodium chloride (PF) (NS) flush 5 mL(Linked Group 2) 5 mL, Intravenous, As needed, line care, Starting on Thu03/25/24 at 0134 0859 (Given - Provider: Ifeoma Waterman RN) sodium chloride 0.9% (NS)(Linked Group 4) 0-150 [...] Saline lock IV (CANCELED) SEKOU, Once, On Danelle 03/24/24 at 2024, For 1 occurrence And sodium chloride (PF) (NS) flush 5 mLJump to med 5 mL, Intravenous, As needed, line care, Starting on Danelle 03/24/24 at 2019 And sodium chloride 0.9% (NS)Jump to med 0-150 mL/hr, Intravenous, As needed, To flush line after IV infusions when no maintenance IV ordered or a compatibility issue. Infuse 20ml at the same rate as the secondary infusion, Starting on Danelle 03/24/24 at 2019, Run as Primary IV. NOT intended for KVO. Scheduled Medication Order 04/27/2024 04/28/2024 04/29/2024 atorvastatin (LIPITOR) tablet 40 mg 40 mg, Oral, Nightly, First dose (after last modification) on Thu04/27/24 at 0200 0242 (Given - Provider: Kyrie Gonzalez RN)2020 (Given - Provider: Kinza Plascencia LPN) 2106 (Given - Provider: Aleyda Villegas RN) busPIRone (BUSPAR) tablet 30 mg 30 mg, Oral, 2 times daily, First dose (after last modification) on Thu04/27/24 at 0900 0803 (Given - Provider: Zuly Benjamin RN)2021 (Given - Provider: Kinza Plascencia LPN) 08 (Given - Provider: Yvette Canchola RN)2107 (Given - Provider: Aleyda Villegas, JAEL) 0831 (Given - Provider: Yvette Canchola RN) ceFAZolin [...] RN)2106 (Given - Provider: Aleyda Villegas RN) 0835 (Not Given - Provider: Yvette Canchola RN [...] NOT hold basal insulin without notifying physician 0241 (Given - Provider: Kyrie Gonzalez RN) insulin [...] Nightly, First dose (after last modification) on Thu04/28/24 at 2100, If patient NPO and BG LESS than 100 before procedure, administer half (rounded up to nearest unit) of the glargine insulin (LANTUS) dose; if BG is GREATER than 100, administer the full dose unless otherwise instructed by ordering physician Do not mix with other insulins in a syringe. Do NOT hold basal insulin without notifying physician 2107 (Given - Provider: Aleyda Villegas, JAEL) insulin lispro (AdmeLOG,HumaLOG) injection 0-15 Units(Linked [...] 0900 0804 (Given - Provider: Zuly Benjamin RN)2021 (Given - Provider: Kinza Plascencia LPN) 08 (Given - Provider: Yvette Canchola RN)210 (Given - Provider: Aleyda Villegas RN) 0831 [...] meet caloric needs. 0544 (Given - Provider: Kyrie Gonzalez RN) 0614 (Given - Provider: Kinza Plascencia LPN) 0541 (Given - Provider: Aleyda Villegas RN) metoprolol tartrate (LOPRESSOR) tablet 25 mg 25 mg, Oral, 2 times daily, First dose (after last modification) on Thu04/27/24 at 0900 0804 (Given - Provider: Zuly Benjamin RN)2021 (Given - Provider: Kinza Plascencia LPN) 08 (Not Given - Provider: Yvette Canchola [...] - Reason: Other - Comment: No patch on)08 (Not Given - Provider: Yvette Canchola RN - Reason: Patient/family refused) 0836 (Not Given - Provider: Yvette Canchola RN - Reason: Patient/family refused) nortriptyline (PAMELOR) capsule 25 mg 25 mg, Oral, Nightly, First dose (after last modification) on Thu04/27/24 at 0300, May cause QT interval prolongation. 0241 (Given - Provider: Kyrie Gonzalez RN)2020 (Given - Provider: Kinza Plascencia LPN) 2119 (Given - Provider: Aleyda Villegas, JAEL) pantoprazole (PROTONIX) EC tablet 40 mg [...] RN)2106 (Given - Provider: Aleyda Villegas RN) 0831 (Given - Provider: Yvette Canchola RN) QUEtiapine (SEROQUEL) tablet 800 mg 800 mg, Oral, Nightly, First dose (after last modification) on Thu04/27/24 at 0200, May cause QT interval prolongation. 024 (Given - Provider: Kyrie Gonzalez RN)2021 (Given - Provider: Kinza Plascencia LPN) 2106 (Given - Provider: Aleyda Villegas RN) senna (SENOKOT) tablet 17.2 mg 17.2 mg (2 tablet), Oral, Nightly, First dose on Thu04/27/24 at 0200, For 5 days 0241 (Given - Provider: Kyrie Gonzalez RN)2020 (Given [...] (after last modification) on Thu04/27/24 at 0200 0241 (Given - Provider: Kyrie Gonzalez RN)2021 (Given - Provider: Kinza Plascencia LPN) 2107 (Given - Provider: Aleyda Villegas RN) Continuous Medication Order 04/27/2024 04/28/2024 04/29/2024 sodium chloride 0.9% (NS) () 100 mL/hr, Intravenous, Continuous, Starting on Thu04/26/24 at 2350, For 10 hours 0306 (New Bag - Provider: Kyrie Gonzalez RN)0900 (Stopped - Provider: Zuly Benjamin RN) PRN Medication Order 04/27/2024 04/28/2024 04/29/2024 albuterol [...] Zuly Benjamin, JAEL)1703 (Given - Provider: Zuly Benjamin RN)2134 (Given - Provider: Kinza Plascencia LPN) 0614 (Given - Provider: Kinza Plascencia LPN)1032 (Given - Provider: Shawna Telles RN)1432 (Given - Provider: Yvette Canchola RN)1941 [...] dose undiluted IV Push over 30 seconds. Scheduled Medication Order 12/03/2024 12/04/2024 12/05/2024 atorvastatin (LIPITOR) tablet 80 mg 80 mg, oral, Daily, First dose on 12/03/24 at 0900, Look-alike/sound-alike medication - verify indication for use. 0753 (Given - Provider: Uzma Mcpherson RN) 0906 (Given - Provider: Uzma Mcpherson RN) 0835 (Given - Provider: Rafael Chavira RN) heparin (porcine) injection 5,000 Units 5,000 Units, subcutaneous, Every 12 hours scheduled, First dose on 12/03/24 at 1800, Notify prescriber if INR greater than 1.9, hemoglobin less than 10 mg/dL, aPTT greater than 40 seconds, and/or platelet count less than 100,000/mm Look-alike/sound-alike medication - verify indication for use. Observe for bleeding. 221 (Given - Provider: Shawna Carrington RN) 09 (Given - Provider: Uzma Mcpherson RN)2127 (Given - Provider: Ellen Valera, RN) 0835 (Given - Provider: Rfaael Chavira, RN) insulin glargine (LANTUS, SEMGLEE) injection pen 15 Units (CANCELED) 15 Units, subcutaneous, 2 times daily, First dose on 12/03/24 at 1700, Look-alike/sound-alike medication - verify indication for use. Prime with 2 units of insulin prior to administration. Basal (long acting) insulin for subcutaneous administration only. Do not mix with any other insulin. Pre-filled pens stable 28 days at room temperature. 173 (Given - Provider: Uzma Mcpherson RN) insulin glargine (LANTUS, SEMGLEE) injection pen 20 Units (CANCELED) 20 Units, subcutaneous, 2 times daily, First dose (after last modification) on Thu12/04/24 at 0900, Look-alike/sound-alike medication - verify indication for use. Prime with 2 units of insulin prior to administration. Basal (long acting) insulin for subcutaneous administration only. Do not mix with any other insulin. Pre-filled pens stable 28 days at room temperature. 0932 (Given - Provider: Uzma Mcpherson RN)2128 (Given - Provider: Ellen Valera, RN) insulin glargine (LANTUS, SEMGLEE) injection pen 25 Units 25 Units, subcutaneous, 2 times daily, First dose (after last modification) on Thu12/05/24 at 0900, Look-alike/sound-alike medication - verify indication for use. Prime with 2 units of insulin prior to administration. Basal (long acting) insulin for subcutaneous administration only. Do not mix with any other insulin. Pre-filled pens stable 28 days at room temperature. 0835 (Given - Provider: Rafael Chavira, JAEL) insulin lispro (HumaLOG) injection 1-4 Units (CANCELED) 1-4 Units, subcutaneous, Nightly, First dose on 12/03/24 at 2200, Bedtime hyperglycemia dosing. For blood glucose 201-250 mg/dL, give 1 unit. For blood glucose 251-300 mg/dL, give 2 units. For blood glucose 301-350 mg/dL, give 3 units. For blood glucose 351-400 mg/dL, give 4 units. Give even if NPO or meals skipped. Do NOT give more often than every 4 hours when NPO. Notify prescriber if blood glucose greater than 400 mg/dL. Look-alike/sound-alike medication - verify indication for use. Prime with 2 units of insulin prior to administration. Prandial/supplemental Insulin. Pre-filled pens stable 28 days at room temperature. Insulin lispro should be administered within 15 minutes before or immediately after a meal. 2211 (Given - Provider: Shawna Carrington RN) 2127 (Given - Provider: Ellen Valera RN) insulin lispro (HumaLOG) injection 1-5 Units (CANCELED) 1-5 Units, subcutaneous, 3 times daily with meals, First dose on 12/03/24 at 1700, Please give 1 units per 15 grams of carbohydrates up to 5 units per 75 grams of carbohydrates within 15 minutes of finishing meals together with correction insulin when needed. Notify prescriber if blood glucose greater than 400 mg/dL. Look-alike/sound-alike medication - verify indication for use. Prime with 2 units of insulin prior to administration. Prandial/supplemental Insulin. Pre-filled pens stable 28 days at room temperature. Insulin lispro should be administered within 15 minutes before or immediately after a meal. 2015 (Given - Provider: Shawna Carrington RN) 0800 (Not Given - Provider: Uzma Mcpherson RN - Reason: Other - Comment: pt did not eat)1232 (Given - Provider: Uzma Mcpherson RN) insulin lispro (HumaLOG) injection 1-5 Units (CANCELED) 1-5 Units, subcutaneous, 3 times daily with meals, First dose on 12/03/24 at 1700, Daytime hyperglycemia dosing. For blood glucose 151-200 mg/dL, give 1 unit. For blood glucose 201-250 mg/dL, give 2 units. For blood glucose 251-300 mg/dL, give 3 units. For blood glucose 301-350 mg/dL, give 4 units. For blood glucose 351-400 mg/dL, give 5 units. Give even if NPO or meals skipped. Do NOT give more often than every 4 hours when NPO. Notify prescriber if blood glucose greater than 400 mg/dL. Look-alike/sound-alike medication - verify indication for use. Prime with 2 units of insulin prior to administration. Prandial/supplemental Insulin. Pre-filled pens stable 28 days at room temperature. Insulin lispro should be administered within 15 minutes before or immediately after a meal. 1700 (Not Given - Provider: Uzma Mcpherson RN - Reason: Order parameters not met - Comment: bs 114) 1113 (Given - Provider: Uzma Mcpherson RN)1231 (Given - Provider: Uzma Mcpherson RN) insulin lispro (HumaLOG) injection 2-10 Units 2-10 Units, subcutaneous, 3 times daily with meals, First dose (after last modification) on 12/04/24 at 1700, Please give 2 units per 15 grams of carbohydrates up to 10 units per 75 grams of carbohydrates within 15 minutes of finishing meals together with correction insulin when needed. Notify prescriber if blood glucose greater than 400 mg/dL. Look-alike/sound-alike medication - verify indication for use. Prime with 2 units of insulin prior to administration. Prandial/supplemental Insulin. Pre-filled pens stable 28 days at room temperature. Insulin lispro should be administered within 15 minutes before or immediately after a meal. 1608 (Given - Provider: Uzma Mcpherson RN) 0800 (Not Given - Provider: Rafael Chavira RN - Reason: Other - Comment: Pt skipping breakfast)1344 (Given - Provider: Shi Saldivar RN)1700 (Due) insulin lispro (HumaLOG) injection 2-10 Units 2-10 Units, subcutaneous, 3 times daily with meals, First dose (after last modification) on 12/04/24 at 1700, Daytime hyperglycemia dosing. For blood glucose 151-200 mg/dL, give 2 unit. For blood glucose 201-250 mg/dL, give 4 units. For blood glucose 251-300 mg/dL, give 6 units. For blood glucose 301-350 mg/dL, give 8 units. For blood glucose 351-400 mg/dL, give 10 units. Give even if NPO or meals skipped. Do NOT give more often than every 4 hours when NPO. Notify prescriber if blood glucose greater than 400 mg/dL. Look-alike/sound-alike medication - verify indication for use. Prime with 2 units of insulin prior to administration. Prandial/supplemental Insulin. Pre-filled pens stable 28 days at room temperature. Insulin lispro should be administered within 15 minutes before or immediately after a meal. 1608 (Given - Provider: Uzma Mcpherson, RN) 0836 (Given - Provider: Rafael Chavira, RN)1343 (Given - Provider: Shi Saldivar RN)1700 (Due) insulin lispro (HumaLOG) injection 2-8 Units 2-8 Units, subcutaneous, Nightly, First dose (after last modification) on Thu12/05/24 at 2200, Bedtime hyperglycemia dosing. For blood glucose 201-250 mg/dL, give 2 unit. For blood glucose 251-300 mg/dL, give 4 units. For blood glucose 301-350 mg/dL, give 6 units. For blood glucose 351-400 mg/dL, give 8 units. Give even if NPO or meals skipped. Do NOT give more often than every 4 hours when NPO. Notify prescriber if blood glucose greater than 400 mg/dL. Look-alike/sound-alike medication - verify indication for use. Prime with 2 units of insulin prior to administration. Prandial/supplemental Insulin. Pre-filled pens stable 28 days at room temperature. Insulin lispro should be administered within 15 minutes before or immediately after a meal. levETIRAcetam (KEPPRA) tablet 750 mg 750 mg, oral, 2 times daily, First dose on 12/03/24 at 0900, Look-alike/sound-alike medication - verify indication for use. 0753 (Given - Provider: Uzma Mcpherson RN)2220 (Given - Provider: Shawna Carrington RN) 0905 (Given - Provider: Uzma Mcpherson, RN)2128 (Given - Provider: Ellen Valera RN) 0835 (Given - Provider: Rafael Chavira, RN) levothyroxine (SYNTHROID, LEVOTHROID) tablet 75 mcg 75 mcg, oral, Daily, First dose on 12/03/24 at 0900, Look-alike/sound-alike medication. Verify indication for use Administer on empty stomach at least ONE hour before or TWO hours after food Enteral Feeding: For 7 days or less of tube feeding- do NOT hold tube feedings, after 7 days- hold tube feedings ONE hour before and ONE hour after administration DOES NOT APPLY TO NEONATES Monitor thyroid function tests weekly 811 (Given - Provider: Uzma Mcpherson RN) 905 (Given - Provider: Uzma Mcpherson RN) 834 (Given - Provider: Rafael Chavira RN) pregabalin (LYRICA) capsule 100 mg 100 mg, oral, Nightly, First dose on 12/03/24 at 2200, Look-alike/sound-alike medication. Verify indication for use 2219 (Given - Provider: Shawna Carrington RN) 2127 (Given - Provider: Ellen Valera, RN) QUEtiapine (SEROquel) tablet 800 mg 800 mg, oral, Nightly, First dose on 12/03/24 at 2200, Look-alike/sound-alike medication - verify indication for use. 2219 (Given - Provider: Shawna Carrington RN) 2127 (Given - Provider: Ellen Valera, RN) sodium chloride 0.9 % bolus (COMPLETED) 1,000 mL, intravenous, at 1,935.5 mL/hr, Administer over 31 Minutes, Once, On 12/03/24 at 1200, For 1 dose 1158 (New Bag - Provider: Uzma Mcpherson RN)1229 (Stop Bag - Provider: Uzma Mcpherson RN) sodium chloride 0.9 % bolus (COMPLETED) 1,000 mL, intravenous, at 492 mL/hr, Administer over 122 Minutes, Once, On 12/03/24 at 1715, For 1 dose 1725 (New Bag - Provider: Uzma Mcpherson, RN)1927 (Stop Bag - Provider: Shawna Carrington RN) sodium chloride 0.9 % flush 10 mL(Linked Group 1) 10 mL, intravenous, 2 times daily, First dose (after last modification) on Thu12/05/24 at 0900, Implanted Ports. When deaccessing, check for patency and flush with 20 mL NS, utilizing the push/pause technique, every 4 weeks when not in use. 0840 (Given - Provider: Rafael Chavira, RN) sodium chloride 0.9 % flush 3 mL 3 mL, intravenous, Every 12 hours scheduled, First dose on 12/03/24 at 0230 0230 (Given - Provider: Shawna Carrington RN)0755 (Given - Provider: Uzma Mcpherson RN)2223 (Given - Provider: Shawna Carrington, RN) 0907 (Given - Provider: Uzma Mcpherson RN)2109 (Given - Provider: Ellen Valera, RN) 0835 (Given - Provider: Rafael Chavira, RN) tiZANidine (ZANAFLEX) tablet 4 mg 4 mg, oral, 3 times daily, First dose on 12/03/24 at 0800, Look-alike/sound-alike medication - verify indication for use. 0812 (Given - Provider: Uzma Mcpherson RN)1336 (Given - Provider: Uzma Mcpherson, RN)2220 (Given - Provider: Shawna Carrington RN) 0906 (Given - Provider: Uzma Mcpherson RN)1604 (Given - Provider: Uzma Mcpherson, RN)2128 (Given - Provider: Ellen Valera, RN) 0541 (Given - Provider: Ellen Valera, RN)1434 (Given - Provider: Rafael Chavira, RN) Continuous Medication Order 12/03/2024 12/04/2024 12/05/2024 insulin regular (MYXREDLIN) infusion 100 units/100 mL in sodium chloride 0.9% (1 unit/mL premix) (CANCELED) 0.2-54 Units/hr (0.2-54 mL/hr), intravenous, Continuous, Starting on 12/03/24 at 0745, Insulin Infusion Orders: Initiating Infusion: Use the patient's current blood glucose result and guidelines in Table A Column 2 to initiate infusion. If subcutaneous rapid-acting insulin is administered with meals, stay in the same column at the same rate for the next 2 hours. Rules for Column changes after initiating drip: Determine hourly drip rate by comparing the current blood glucose result to previous blood glucose result with guidelines in Table B to adjust insulin infusion. Rules for Column 7-9 changes: use the patient's current blood glucose result and guidelines in Table B and Table C to adjust high dose insulin infusion. Stop Insulin Infusion for potassium level 3.3 mmol/L or less. *Do not change insulin drip rate for 2 hours if correction scale given for meal. Notify prescriber if blood glucose greater than 400 mg/dL. Look-alike/sound-alike medication. Verify indication for use. 0835 (New Bag - Provider: Uzma Mcpherson RN)0941 (Rate/Dose Change - Provider: Uzma Mcpherson RN)0943 (Rate/Dose Verify - Provider: Uzma Mcpherson RN)1031 (Rate/Dose Change - Provider: Uzma Mcpherson RN)1034 (Rate/Dose Verify - Provider: Uzma Mcpherson RN)1131 (Rate/Dose Change - Provider: Uzma Mcpherson RN)1133 (Rate/Dose Verify - Provider: Uzma Mcpherson RN)1231 (Rate/Dose Change - Provider: Uzma Mcpherson RN)1232 (Rate/Dose Verify - Provider: Uzma Mcpherson RN - Comment: [Action automatically changed])1236 (Rate/Dose Verify - Provider: Uzma Mcpherson RN)1326 (Rate/Dose Change - Provider: Uzma Mcpherson RN)1327 (Rate/Dose Verify - Provider: Uzma Mcpherson RN)1441 (Rate/Dose Change - Provider: Uzma Mcpherson RN)1442 (Rate/Dose Verify - Provider: Uzma Mcpherson RN - Comment: [Action automatically changed])1534 (Rate/Dose Change - Provider: Uzma Mcpherson RN)1538 (Rate/Dose Verify - Provider: Uzma Mcpherson RN)1635 (Rate/Dose Change - Provider: Uzma Mcpherson RN)1636 (Rate/Dose Verify - Provider: Uzma Mcpherson RN)1656 (Stop Bag - Provider: Uzma Mcpherson RN - Comment: [Order ends at this time. Document the following action when infusion is complete: Stop Bag]) sodium chloride 0.9 % infusion () 100 mL/hr, intravenous, Continuous, Starting on 12/03/24 at 1715, For 1 day 1728 (New Bag - Provider: Uzma Mcpherson RN)2002 (Paused - Provider: Uzma Mcpherson RN)2005 (Restarted - Provider: Uzma Mcpherson RN)2006 (Paused - Provider: Uzma Mcpherson RN)2008 (Restarted - Provider: Uzma Mcpherson RN)2358 (Paused - Provider: Uzma Mcpherson RN) 0000 (Restarted - Provider: Uzma Mcpherson RN)0356 (Paused - Provider: Uzma Mcpherson RN)0510 (Restarted - Provider: Uzma Mcpherson RN)0626 (Rate/Dose Verify - Provider: Umza Mcpherson RN)0907 (Rate/Dose Change - Provider: Uzma Mcpherson RN)0909 (Stop Bag - Provider: Uzma Mcpherson RN)0911 (New Bag - Provider: Uzma Mcpherson RN - Comment: [Order ends at this time. Document the following action when infusion is complete: Stop Bag])0922 (Stop Bag - Provider: Uzma Mcpherson RN)0923 (Restarted - Provider: Uzma Mcpherson RN)1727 (Stop Bag - Provider: Uzma Mcpehrson RN - Comment: [Order ends at this time. Document the following action when infusion is complete: Stop Bag]) sodium chloride 0.9 % with KCl 20 mEq/L infusion () 100 mL/hr, intravenous, Continuous, Starting on 12/03/24 at 0745, For 1 day, For blood glucose greater than 250mg/dL. Once IV fluid is changed to dextrose-containing formulation, DO NOT change to goy-idutbpnl-ndpulvolmw IV fluid if blood glucose exceeds 250 mg/dL. 0843 (New Bag - Provider: Uzma Mcpherson RN)0956 (Paused - Provider: Uzma Mcpherson RN)0958 (Restarted - Provider: Uzma Mcpherson RN)1236 (Rate/Dose Verify - Provider: Uzma Mcpherson RN)1724 (Stop Bag - Provider: Uzma Mcpherson RN) 0502 (New Bag - Provider: Shawna Carrington RN)0626 (Rate/Dose Verify - Provider: Uzma Mcpherson RN)0842 (Stop Bag - Provider: Uzma Mcpherson RN - Comment: [Order ends at this time. Document the following action when infusion is complete: Stop Bag]) PRN Medication Order 12/03/2024 12/04/2024 12/05/2024 dextrose (GLUTOSE) 40 % gel 15 g 15 g, oral, As needed, low blood sugar, blood glucose less than 70 mg/dL, Starting on 12/03/24 at 1655, If patient conscious and taking PO. If blood glucose is not greater than 70 mg/dL after initial treatment, repeat treatment. dextrose 5 % and sodium chloride 0.9 % with KCl 20 mEq/L infusion (CANCELED) 250 mL/hr, intravenous, Continuous PRN, for blood glucose 250mg/dL or less, Starting on 12/03/24 at 0740, For 1 day, Once IV fluid is changed to dextrose-containing formulation, DO NOT change to ywu-ltlhvgsb-mrpdnlifir IV fluid if blood glucose exceeds 250 mg/dL. 0816 (New Bag - Provider: Uzma Mcpherson, RN)0816 (Paused - Provider: Uzma Mcpherson, RN)0818 (Paused - Provider: Uzma Mcpherson, RN)0829 (Restarted - Provider: Uzma Mcpherson, RN)0830 (Stop Bag - Provider: Uzma Mcpherson RN) dextrose 50 % in water (D50W) 50% solution 25 mL 25 mL, intravenous, As needed, low blood sugar, blood glucose less than 70 mg/dL and unconscious or NPO with IV access, Starting on 12/03/24 at 1655, Push over 1-3 minutes STAT. If conscious and not NPO, immediately follow with meal tray or high protein (7 grams) snack if tray not available. If NPO, initiate 5% dextrose in water at 100 mL/hr and contact prescriber for additional orders. If blood glucose is not greater than 70 mg/dL after initial treatment, repeat treatment. VESICANT (RED) Warning: HYPERTONIC solution. glucagon HCL injection 1 mg 1 mg, intramuscular, As needed, low blood sugar, blood glucose less than 70 mg/dL and unconscious or NPO without IV access., Starting on 12/03/24 at 1655, If conscious and not NPO, immediately follow with meal tray or high protein (7Grams) snack if tray not available. If NPO, initiate IV 5% Dextrose/Water at 100 mL/hr and contact prescriber for additional orders. If blood glucose is not greater than 70 mg/dL after initial treatment, repeat treatment. ondansetron (PF) (ZOFRAN) injection 4 mg 4 mg, intravenous, Every 6 hours PRN, nausea, vomiting, Starting on 12/04/24 at 1245, Intravenous administration preferred to be given over 2-5 minutes. 214 (Given - Provider: Ellen Valera, RN) oxyCODONE-acetaminophen (PERCOCET) 5-325 mg per tablet 1 tablet 1 tablet, oral, Every 8 hours PRN, severe pain - pain scale 7-10, Starting on 12/03/24 at 0253, Look-alike/sound-alike medication - verify indication for use., Indications: pain 0533 (Given - Provider: Shawna Carrington, RN)1336 (Given - Provider: Uzma Mcpherson, RN)2220 (Given - Provider: Shawna Carrington RN) 0916 (Given - Provider: Uzma Mcpherson, RN)213 (Given - Provider: Ellen Valera, RN) sodium chloride 0.9 % flush 20 mL(Linked Group 1) 20 mL, intravenous, As needed, line care, Starting on Thu12/05/24 at 0624, Implanted Ports. 20 mL IVP to port before and after use, utilizing the push/pause technique. When deaccessing, check for patency and flush with 20 mL NS, utilizing the push/pause technique, every 4 weeks when not in use. sodium chloride 0.9 % flush 3 mL 3 mL, intravenous, As needed, line care, before and after each intermittent use, Starting on 12/03/24 at 0216 sodium chloride 0.9 % flush bag 25 mL, intravenous, at 100 mL/hr, Administer over 15 Minutes, As needed, line care, line care after IVPB administration, Starting on 12/03/24 at 0216 Linked Groups Order Group 1: sodium chloride 0.9 % flush 20 mLJump to med 20 mL, intravenous, As needed, line care, Starting on Thu12/05/24 at 0624, Implanted Ports. 20 mL IVP to port before and after use, utilizing the push/pause technique. When deaccessing, check for patency and flush with 20 mL NS, utilizing the push/pause technique, every 4 weeks when not in use. And sodium chloride 0.9 % flush 10 mLJump to med 10 mL, intravenous, 2 times daily, First dose (after last modification) on Thu12/05/24 at 0900, Implanted Ports. When deaccessing, check for patency and flush with 20 mL NS, utilizing the push/pause technique, every 4 weeks when not in use. Goals (unrecognized section and content) Goals may [...] BE BASED ON THE PRIMARY CLINICAL RECORDS. [facility] [employer] [facility]. provides no warranty or guarantee of the accuracy or completeness of information in this document.
--- OUTSIDE RECORDS SUMMARY | 2025-01-04 18:41 | XMS_ITS | CCD ---
Author Organization [facility] Care Team Providers Care Radiator Fitter Name Role Phone Cem Mario Unavailable Unavailable [...] Un available Italo Headley Primary Care Physician [phone] Sarita Feliz Unavailable Unavailable Breanna Gu Primary Care Physician Winnie Grande Unavailable Unavailable Herlinda June Unavailable Cem Mario DO Primary Care Provider CEM MARIO Primary Care Unavailable ANTOINE SOSA Attending Unavailable Radha Dias Primary Care Physician [phone] Pool Heath Primary Care Physician LOLI Franco Primary Care Provider DO Jacob Farfan Emergency Provider DO Ezekiel Mathew Admit Provider DO Ezekiel Mathew Attending Provider [phone] MD Jeana Martini Attending Provider MD Lawrence Kim Other Provider LUPE Castillo Other Provider MD Shameka Romero Other Provider LOLI Franco Primary Care Provider DO Jaocb Farfan Emergency Provider DO Ezekiel Mathew Admit Provider MD Lawrence Kim Other Provider LUPE Castillo Other Provider [phone] MD Shameka Romero Other Provider [phone] MD Jeana Martini Attending Provider LAURENT FRANCO Primary Care Physician Shameka Romero Unavailable MD Shameka Romero Attending Provider [phone] Unavailable Primary Care Provider Unavailabl e PROVIDER, [...] Unavailable KALLIE, DR AGUILERA Primary Care Unavailable FERNDALE, DR KO Bravo Consulting Unavailable KWADWO .RAFAELA [...] Not In Primary Care Provider Un available [facility] Primary Care Provider [phone] [facility] Primary Care Unavailable XIMENA RINCON Attending Unavailable [facility] Primary Care Provider [phone] No, Physician Primary Care Provider Unavailtheo Pelayo PA-C, Stephany Noriega Primary Care Provider Angeles ELDER, Marcia Unavailable Unavailable Doctor, No Referring Unavailable Doctor, No Primary Care Unavailable Idalia Bruner Attending Unavailable Idalia Bruner Consulting Unavailable Angeles ELDER, Marcia Unavailable Unavailable Cherelle Fierro MD Unavailable Lexy Leach MD Primary Care Provider [phone] Cem Mario DO Unavailable Angeles ELDER, Marcia [...] Unavailable Unavailable Jessee, Swapnil R Unavailable Unavailable [facility] Primary Care Unavailable HARSHAD RIZZO Referring Unavailable STEPHANY PELAYO Primary Care Unavailable HARSHAD RIZZO Referring Unavailable Stephany Pelayo PA-C Primary Care Provider Unavailable Primary Care Provider Unavailtheo Finklocatraheem STEVENS, Natalia Provider Primary Care Provi arlene Jim Velez MD Unavailable [phone] [place] Attending Unavailable Doctor, No Primary Care Provider UnavailVerena Bassett CNP Emergency Provider Doctor, No Consulting Unavailable Doctor, No Primary Care Unavailable Verena Kuhn Attending Unavailable Stephany Pelayo PA-C Primary Care Provider CARISA STILES Referring Unavailable LARISSA JENKINS Admitting Unavailable MAYE ORTIZ Attending Unavailable JUAN F NAVARRO Referring Unavailable BROJUAN C GARDUNO Referring Unavailable BRO SAMQUINTEN Referring Unavailable [...] STEPHANY PELAYO Attending Unavailable GITA, STEPHANY NORIEGA Referring Unavailable GITA, [...] Care Unavailable LAWSON, JUWAN FOWLER Admitting Unavailable [facility] Consulting RUTHY Schmitz Attending Unavailable SHAMEKA CASTILLO Consulting Unavailable MALCOLM L[address] Attending Unavailable STEPHANY PELAYO Primary Care Unavailable SHAMEKA CASTILLO Consulting Unavailable HARSHAD RIZZO Admitting Unavailable [facility] Consulting Annavakayy alarcon JUDY, SILESHKayy ADMASSU Admitting Unavailab STEPHANY Graham Primary Care Unavailable [facility] Consulting Unavai labivan RIZZO HARSHAD [...] Provider Radha Dias DO Primary Care Provider Unavailable Primary Care Provider UnavailVANESSA Nielsen Admitting Unavailable YARELIS HAMILTON AHCLEOPATRA Referring Unavailable RADHA DIAS Primary Care Unavailable BLAIRE FREITAS Consulting Unavailable ELDA AGUIRRE Attending Unavailable ESVIN IBRAHIM Consulting Unavailable LIANNE MCCORMICK Consulting Unavailable RADHA DIAS Referring Unavailable RADHA DIAS Primary Care Unavailable Ben Horn DO Attending Provider Ben Horn Attending Unavailable Ben Horn Admitting Unavailable Allergies Allergy Classification Reported Allergen(s) Allergy Type Date of Onset Reaction(s) Facility (20 sources) codeine; Translations: [codeine] Propensity to adverse reactions to drug 02-16-20 08 Vomiting (disorder), hives, Other (See Comments) [facility] Work Phone: Comment on above: hives hives (20 sources) ketorolac; Translations: [ketorolac] Propensity to adverse reactions to drug 10-09-19 11 Hives, Other (See Comments), Rash, GI Intolerance, Vomiting (disorder) [facility] Work Phone: Comment on above: hives hives (20 sources) Latex; Translations: [LATEX] Propensity to adverse reactions to drug 05-01-20 15 Dermatitis [facility] Work Phone: (20 sources) traMADol; Translations: [tramadol] Propensity to adverse reactions to drug 12-15-19 12 Hives, Rash, Other (See Comments), GI Intolerance, Vomiting (disorder), Seizures, Unknown [facility] Work Phone: Comment on above: seizures seizures (20 sources) PROPOXYPHENE N-ACETAMINOPHEN; Translations: [PROPOXYPHENE N-ACETAMINOPHEN] Propensity to adverse reactions to drug 02-16-20 08 GI Intolerance, Vomiting [facility] Work Phone: (1 source) Acetaminophen / Propoxyphene Drug Allergy [facility] Rep[facility] (20 sources) Adhesive agent; Translations: [ADHESIVE] Drug allergy (disorder) 07-17-19 18 Itching [facility] (1 source) Codeine Drug Allergy [facility] (7 sources) Ketorolac; Translations: [Toradol] Drug Allergy 10-09-19 11 hives/seizures [facility] (4 sources) Latex Drug allergy (disorder) 12-21-19 16 [facility] (4 sources) traMADol Drug Allergy 10-01-19 13 [facility] (18 sources) Vancomycin; Translations: [VANCOMYCIN] Drug Allergy 12-15-19 15 Unknown Reaction, Unknown Reaction, [facility] Rep[facility] Comment on above: shuts down my kidne ys . (3 sources) IV Dye, Iodine Containing Drug allergy (disorder) 12-15-19 15 [facility] Rep[facility] (9 sources) Adhesive Tape; Translations: [adhesive tape] Allergy to Substance 11-03-19 14 [facility] Rep[facility] (20 sources) Ibuprofen; Translations: [ibuprofen] Drug Allergy 08-18-19 18 Other (See Comments), Renal Failure, [facility] Comment on above: shuts down my kidne ys . (20 sources) Propoxyphene; Translations: [PROPOXYPHENE] Drug Allergy 05-25-19 16 GI Intolerance, Nausea And Vomiting [facility] (11 sources) Iodinated Contrast Media; Translations: [Iodinated Contrast Media] Allergy to Substance 02-17-20 17 Other, Unknown [facility] Comment on above: shuts down my kidne ys . (3 sources) Codeine Drug Allergy 10-08-19 11 [facility] Rep[facility] (1 source) Contrast media; Translations: [IVP DYE] Propensity to adverse reactions (disorder) 06-18-19 17 [facility] Rep[facility] (14 sources) fentaNYL; Translations: [FENTANYL] Drug Allergy 09-23-19 19 [facility] Rep[facility] (1 source) Vancomycin Drug Allergy 06-18-19 17 [facility] Repository (6 sources) DARVOCET-N 100; Translations: [Darvocet-N 100] Drug allergy (disorder) 10-08-19 11 hives [facility] Rep[facility] (20 sources) fentaNYL; Translations: [fentanyl] Drug Allergy 04-11-20 19 Renal Failure, GI intolerance [facility] (20 sources) NSAIDs; Translations: [NSAIDS (NON-STEROIDAL ANTI-INFLAMMATOR Y DRUG)] Propensity to adverse reactions to drug 03-30-20 17 [facility] (20 sources) Vancomycin; Translations: [vancomycin] Drug Allergy 01-22-20 17 Other (See Comments), hives [facility] (20 sources) Ct: Iodinated Contrast- Oral And Iv Dye; Translations: [CT: IODINATED CONTRAST- ORAL AND IV DYE] Propensity to adverse reactions to drug 09-07-19 19 Other (See Comments) [facility] (20 sources) acetaminophen / propoxyphene; Translations: [acetaminophen-p ropoxyphene] Drug Allergy 02-16-20 08 Vomiting (disorder), Nausea and Vomiting [facility] (20 sources) Contrast media; Translations: [Contrast Dye] Drug allergy Renal failure syndrome (disorder) [facility] (20 sources) insect stings; Translations: [insect stings] Allergy to substance swelling [facility] (20 sources) opsite; Translations: [opsite] Allergy to substance redness,blisters [facility] (7 sources) Tape 5 Propensity to adverse reactions to substance Eruption of skin (disorder) [facility] Comment on above: blisters (20 sources) Tape 2 Propensity to adverse reactions to substance Eruption of skin (disorder) [facility] Comment on above: blisters blisters (3 sources) FENTENOL Propensity to adverse reactions 09-09-19 23 Unknown [facility] (3 sources) adhesive tape, iv dye, latex Propensity to adverse reactions 09-09-19 23 itchy [facility] (1 source) Tape 4 Propensity to adverse reactions to substance Eruption of skin (disorder) [facility] Comment on above: blisters (2 sources) Ketorolac Drug Allergy 05-25-19 16 Other (See Comments) [facility]: (20 sources) LORazepam; Translations: [LORAZEPAM] Drug Allergy 12-09-19 22 Hallucinations, Other (See Comments) [facility] (20 sources) Iodides; Translations: [IODIDES] Propensity to adverse reactions to drug 02-17-20 17 Other (See Comments) [facility] (20 sources) linezolid; Translations: [linezolid] Drug Allergy 08-20-19 23 Nausea and vomiting (disorder), Nausea And Vomiting, GI Intolerance, Renal Failure [facility] (4 sources) dextrose 5 % in water; Translations: [dextrose 5 % in water] Propensity to adverse reactions 08-20-19 23 Vomiting [facility] (1 source) Vancomycin Drug Allergy [employer] Other (1 source) linezolid Drug Allergy 06-25-19 23 [facility] Repository (20 sources) Adhesive agent Propensity to adverse reactions to drug 07-17-19 18 Itching [facility] Work Phone: (2 sources) Adhesive agent Drug allergy (disorder) 11-29-19 23 [facility] (2 sources) Codeine Drug Allergy 11-29-19 23 [facility] (2 sources) fentaNYL Drug Allergy 11-29-19 23 [facility] (2 sources) fosphenytoin Drug Allergy 11-29-19 23 [facility] (2 sources) Ketorolac Drug Allergy 11-29-19 23 [facility] (2 sources) Latex Drug allergy (disorder) 11-29-19 23 [facility] (3 sources) Propoxyphene Drug Allergy 11-29-19 23 Unknown [facility] (3 sources) traMADol Drug Allergy 11-29-19 23 Unknown [facility] (2 sources) Vancomycin Drug Allergy 11-29-19 23 [facility] (3 sources) ibuproxam Drug allergy (disorder) 11-29-19 23 [facility] (3 sources) bug bites; Translations: [bug bites] Propensity to adverse reactions (disorder) 11-29-19 23 Unknown [facility] (20 sources) Prochlorperazine ; Translations: [PROCHLORPERAZIN E] Drug Allergy 06-04-19 24 Other (See Comments) [facility] (3 sources) Ketorolac trometamol Propensity to adverse reactions to drug 01-22-20 17 [facility] (5 sources) Latex Propensity to adverse reactions to drug 05-01-20 15 Dermatitis, Hives, Rash [facility] (5 sources) Non-steroidal anti-inflammator y agent Propensity to adverse reactions to drug 03-30-20 17 [facility] (3 sources) *Adhesive Tape Propensity to adverse reactions 07-15-19 18 [facility] Work Phone: (3 sources) Codeine And Related Propensity to adverse reactions to drug 02-16-20 08 Aggressive Behavior [facility] (3 sources) Dye Shelter Red 3 (Erythrosine) Propensity to adverse reactions to drug 01-22-20 17 [facility] (1 source) Adhesive Tape; Translations: [Tape] Propensity to adverse reactions (disorder) [facility] Rep[facility] (1 source) traMADol; Translations: [Ultram] Drug Allergy [facility] (4 sources) Lorazepam Propensity to adverse reactions to drug 12-09-19 22 Renal Failure, Hallucinations [facility] (2 sources) Morphine And Codeine Drug Intolerance 02-16-20 08 Other, Rash, GI intolerance [facility] (1 source) Adhesive agent Allergy to substance 08-30-19 25 [facility] Work Phone: (1 source) fosphenytoin Drug Allergy 08-30-19 25 Itching [facility] Work Phone: (2 sources) Acetaminophen; Translations: [ACETAMINOPHEN] Drug Allergy 09-09-19 23 hives [facility] Rep[facility] (1 source) Morphine; Translations: [MORPHINE] Drug Allergy 02-16-20 08 [facility] Rep[facility] (5 sources) ADHESIVE TAPE-SILICONES; Translations: [ADHESIVE TAPE-SILICONES] Propensity to adverse reactions to drug (disorder) 07-15-19 18 [facility] Rep[facility] (4 sources) Contrast media; Translations: [DYE] Propensity to adverse reactions to drug 08-18-19 18 [facility] Medications Current Medications Medication Drug Class(es) [...] Cough and Congestion, 18 gm, Refill(s) 0, [facility], 158, cm, 10/09/21 15:33:00 EDT, Height/Length [...] breath or wheezing, 180 mL, Refill(s) 0, [facility] 1986, 162, cm, 04/06/22 20:38:00 EST, Height/Length [...] day(s), # 2 tab(s), Refills(s) 0, Pharmacy: [facility], 162, cm, 04/06/22 20:38:00 EST, [...] oral solution (15 sources) alpha-Adrenergic Agonist, Uncompetitive Y-fvpwdh-U-asparta te Receptor Antagonist, Sigma-1 Agonist Start: 10-09-2021 [...] Daily, # 30 tab(s), Refills(s) 0, Pharmacy: [facility], 162, cm, 04/06/22 20:38:00 EST, [...] Antibacterial Start: 04-04-2024 End: 04-08-2024 Dexcom G6 Administrative And Program Specialist Misc (20 sources) Start: 12-03-2023 Dexcom G6 [...] QID, # 20 cap(s), Refills(s) 0, Pharmacy: [facility] 1986, 157, cm, 05/04/22 15:39:00 EST, Height/Length Dosing, 130, kg, 05/04/22 15:39:00 EST, Weight Dosing Start Date: 05/04/22 Status: Ordered Start: 01-24-2022 End: 01-31-2022 take 1 tablet by mouth three times daily dicyclomine 20 mg Tab 20 mg = 1 tab(s), Oral, TID, X 7 day(s), # 21 tab(s), Refills(s) 0, Pharmacy: [facility], 157, cm, 01/24/22 10:48:00 EDT, Height/Length [...] day(s), # 20 tab(s), Refills(s) 0, Pharmacy: [facility] 1986, 157, cm, 08/19/22 17:10:00 EDT, Height/Length [...] at pharmacy - [facility] [place] . 0 06/01/2020 Active fluconazole 150 mg [...] pick it up tomorrow at pharmacy - [facility] [place] . 0 06/01/2020 02/17/2023 Discontinued GLUCOSE MONITOR [...] day(s), # 90 tab(s), Refills(s) 0, Pharmacy: [facility], 158, cm, 09/30/21 14:00:00 EDT, [...] dizziness, # 30 tab(s), Refills(s) 0, Pharmacy: [facility], 158, cm, 09/30/21 14:00:00 EDT, Height/Length Dosing, 112.8, kg, 09/30/21 14:00:00 EDT, Weight Dosing Start Date: 09/30/21 Status: Ordered Start: 11-14-2020 take 1 tablet by eduardo th three times daily as needed for dizziness meclizine 25 mg Tab 25 mg = 1 tab(s), Oral, TID, PRN as needed for dizziness, # 30 tab(s), Refills(s) 0, Pharmacy: [facility]5, 157, cm, 11/14/20 15:53:00 EDT, Height/Length Dosing, 117.1, kg, 11/14/20 15:53:00 EDT, Weight Dosing Start Date: 11/14/20 Status: Ordered meloxicam 15 mg oral tablet (20 sources) Nonsteroidal Anti-inflammatory Drug Start: 09-30-2021 End: 12-29-2021 take 1 tablet by mouth once daily meloxicam 15 mg Tab 15 mg = 1 tab(s), Oral, Daily, X 90 day(s), # 90 tab(s), Refills(s) 0, Pharmacy: [facility] 1986, 158, cm, 09/30/21 14:00:00 EDT, Height/Length [...] day(s), # 9 tab(s), Refills(s) 0, Pharmacy: [facility] 1986, 157, cm, 06/02/22 15:53:00 EST, [...] day(s), # 10 cap(s), Refills(s) 0, Pharmacy: [facility], 158, cm, 10/30/21 13:11:00 EDT, Height/Length [...] day(s), # 90 cap(s), Refills(s) 0, Pharmacy: [facility] 1986, 158, cm, 09/30/21 14:00:00 EDT, [...] day(s), # 90 cap(s), Refills(s) 0, Pharmacy: [facility] 1986, 158, cm, 09/30/21 14:00:00 EDT, [...] mouth every morning before breakfast. Active [place] 10/07 (2 sources) Start: 03-06-2018 [place] as directed twice daily Feb, Active petrolatum 0.57 mg/mg / zinc oxide 0.17 mg/mg paste (17 sources) Start: 08-02-2024 zinc oxide-whi te petrolatum 17-57 % Pste Apply 1 Application topically daily . 113 g 2 08/02/2024 Active polyethylene glycol 3350 70873 mg powder for oral solution (20 sources) [...] day(s), # 15 tab(s), Refills(s) 0, Pharmacy: [facility], 158, cm, 10/09/21 15:33:00 EDT, [...] Start: 08-04-2019 take 1 capsule by mo [facility] at bedtime Start: 01-29-2019 take 100 mg [...] 7:07am Start: 12-29-2021 take 3 tablets by [facility] once daily at bedtime Zanaflex 4 mg Tab 12 mg = 3 tab(s), Oral, Once a day (at bedtime), # 30 tab(s), Refills(s) 1, Pharmacy: [facility], 157, cm, 12/12/21 16:54:00 EDT, Height/Length Dosing, 114.8, kg, 12/12/21 16:54:00 EDT, Weight Dosing Start Date: 12/29/21 Status: Ordered Start: 12-12-2021 take 3 tablets by mo [facility] once daily at bedtime Zanaflex 4 mg Tab 12 mg = 3 tab(s), Oral, Once a day (at bedtime), # 30 tab(s), Refills(s) 1, Pharmacy: [facility]5, 157, cm, 12/12/21 16:54:00 EDT, Height/Length Dosing, 114.8, kg, 12/12/21 16:54:00 EDT, Weight Dosing Start Date: 12/12/21 Status: Ordered Start: 10-28-2021 take 3 tablets by [facility] once daily at bedtime Zanaflex 4 mg Tab 12 mg = 3 tab(s), Oral, Once a day (at bedtime), # 30 tab(s), Refills(s) 0, Pharmacy: [facility], 158, cm, 10/09/21 15:33:00 EDT, Height/Length Dosing, 112.8, kg, 10/09/21 15:33:00 EDT, Weight Dosing Start Date: 10/28/21 Status: Ordered Start: 09-30-2021 take 3 tablets by [facility] once daily at bedtime Zanaflex 4 mg Tab 12 mg = 3 tab(s), Oral, Once a day (at bedtime), # 30 tab(s), Refills(s) 0, Pharmacy: [facility], 158, cm, 09/30/21 14:00:00 EDT, Height/Length Dosing, 112.8, kg, 09/30/21 14:00:00 EDT, Weight Dosing Start Date: 09/30/21 Status: Ordered Start: 07-31-2021 take 3 tablets by [facility] once daily at bedtime Zanaflex 4 mg Tab 12 mg = 3 tab(s), Oral, Once a day (at bedtime), # 30 tab(s), Refills(s) 0, Pharmacy: [facility], 157.5, cm, 07/29/21 14:55:00 EST, [...] day(s), # 14 cap(s), Refills(s) 0, Pharmacy: [facility], 158, cm, 11/04/21 11:29:00 EDT, Height/Length [...] 20 mg/ml oral solution (4 sources) Uncompetitive B-yuqmwu-W-aspartat e Receptor Antagonist, Sigma-1 Agonist Start: 05-15-2023 [...] week(s), # 6 cap(s), Refills(s) 0, Pharmacy: [facility] 1986, 162, cm, 04/06/22 20:38:00 EST, Height/Length [...] (Suppress CancelRx Message to Pharmacy)) flu vacc [id number] 6mos up(PF) (FLUZONE QUAD/FLULAVAL QUAD/FLUARIX QUAD) syringe 0.5 mL (1 source) Start: 06-03-2020 End: 06-05-2020 inject 0.5 mL by intramuscular injection every twenty-four hours as needed flu vacc [id number] 6mos up(PF) (FLUZONE QUAD/FLULAVAL QUAD/FLUARIX QUAD) syringe 0.5 mL flu vacc [id number] 6mos up(PF) (FLUZONE QUAD/FLULAVAL QUAD/FLUARIX QUAD) syringe Syrg 0.5 mL (1 source) Start: 03-29-2023 End: 03-30-2023 inject 0.5 mL by intramuscular injection every twenty-four hours as needed flu vacc [id number] 6mos up(PF) (FLUZONE QUAD/FLULAVAL QUAD/FLUARIX QUAD) syringe [...] on Thu02/18/23 at 0900 FreeStyle Zeinab 2 [place] Misc (20 sources) Start: 04-01-2023 End: 12-02-2023 FreeStyle Zeinab 2 [place] Misc Indications: Type 2 diabetes mellitus with diabetic polyneuropathy, with long-term current use of insulin (HCC) Inject 1 each under the skin 2 (two) times a day . 04/01/2023 12/02/2023 Discontinued (Alternate therapy) Start: 04-01-2023 FreeStyle Libr e 2 [place] Misc Indications: Type 2 diabetes mellitus with diabetic polyneuropathy, with long-term current use of insulin (HCC) Inject 1 each under the skin 2 (two) times a day . 04/01/2023 Active Start: 04-01-2023 FreeStyle Libr e 2 [place] Misc Indications: Type 2 diabetes mellitus with diabetic polyneuropathy, with long-term current use of insulin (HCC) Inject 1 each under the skin 2 (two) times a day . 0 04/01/2023 Suspended Start: 04-01-2023 FreeStyle Libr e 2 [place] Mis Indications: Type 2 diabetes mellitus with [...] to dextrose-containing formulation, DO NOT change to [id number] IV fluid if blood glucose exceeds 250 [...] Discontinued Start: 04-08-2022 take 2 tablets by [facility] twice daily Mucinex 600 mg Tab-ER 1,200 mg = 2 tab(s), Oral, BID, # 30 tab(s), Refills(s) 0, Pharmacy: [facility] 1986, 162, cm, 04/06/22 20:38:00 EST, Height/Length [...] BID, # 60 tab(s), Refills(s) 0, Pharmacy: [facility], 157, cm, 02/27/22 12:02:00 EDT, [...] day(s), # 90 tab(s), Refills(s) 0, Pharmacy: [facility], 158, cm, 09/30/21 14:00:00 EDT, [...] 29, 2024 1:56pm naloxone (NARCAN) 4 mg/actuation [place] (13 sources) Start: 04-14-2024 End: 08-02-2024 naloxone (NARCAN) 4 mg/actua tion [place] Administer 1 spray into one nostril for known or suspected opioid overdose. If patient worsens or does not respond, may repeat in 2-3 minutes. . 2 each 04/14/2024 08/02/2024 Discontinued (Therapy completed) Start: 04-14-2024 naloxone (NARC AN) 4 mg/actuation [place] Administer 1 spray into one nostril for known or suspected opioid overdose. If patient worsens or does not respond, may repeat in 2-3 minutes. . 2 each 04/14/2024 Start: 04-14-2024 naloxone (NARC AN) 4 mg/actuation [place] Administer 1 spray into one nostril for known or suspected opioid overdose. If patient worsens or does not respond, may repeat in 2-3 minutes. . 2 each 04/14/2024 Suspended Start: 04-14-2024 naloxone (NARC AN) 4 mg/actuation [place] Administer 1 spray into one nostril for [...] 5 DAYS 09/26/2022 Active nystatin (MYCOST ATIN) 957247 UNIT/GM cream Apply topically 2 times daily Apply topically 2 times daily. 0 Active nystatin (MYCOST ATIN) 548355 UNIT/GM powder Apply topically 4 times daily [...] # 6 tab(s), Refills(s) 0, Pharmacy: [facility] [place] [address] Start Date: 11/23/18 Status: Ordered Start: 07-23-2018 [...] day(s), # 28 tab(s), Refills(s) 0, Pharmacy: [facility], 158, cm, 09/30/21 14:00:00 EDT, [...] 05, 2019 3:09pm take 1 capsule by [facility] every twenty-four hours Potassium Chloride 10 MEQ [...] to dextrose-containing formulation, DO NOT change to [id number] IV fluid if blood glucose exceeds 250 [...] TID, # 15 tab(s), Refills(s) 0, Pharmacy: [facility], 157, cm, 01/24/22 10:48:00 EDT, Height/Length [...] day(s), # 8 tab(s), Refills(s) 0, Pharmacy: [facility] 1986, 157, cm, 02/21/22 14:56:00 EDT, [...] source) Anticholinergic Start: 03-25-2024 End: 03-28-2024 sennosides, shelter 8.6 mg oral tablet (4 sources) Start: [...] 0, START TONIGHT; drink plenty of fluids, [facility], 157, cm, 09/12/22 13:52:00 EDT, Height/Length Dosing, 113, kg, 09/12/22 13:52:00 EDT, Weight Dosing Start Date: 09/15/22 Stop Date: 09/20/22 Status: Ordered Start: 05-15-2022 End: 05-22-2022 take 1 tablet by mouth twice daily Bactrim D.S. 800 mg-160 mg Tab 1 tab(s), Oral, BID for 7 day(s), 14 tab(s), Refill(s) 0, [facility] 1985, 157, cm, 05/15/22 16:23:00 EST, [...] daily cyanocobalamin (B-12) 1000 MCG tablet Indications: [facility] Take 1 (one) tablet (1,000 mcg total) by mouth daily Reasons: [facility]. 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 CURRENT USE OF ASPIRIN] Onset: 3 Episodic Other aftercare (3 sources) Other press tender long goods (current) drug therapy; Translations: [OTH JAIL CURRENT DRUG THERAPY] Onset: 3 Episodic Other aftercare (1 source) assisted (current) use of oral hypoglycemic drugs; Translations: [JAIL USE ORAL HYPOGLYCEMIC DX] Onset: 3 Episodic [...] 2015- armpit and chi n- treated at [facility] in [place] 2014- armpit and chi n- treated at [facility] [place] Other skin disorders (4 sources) Ingrowing nail; [...] UNCOMP Onset: 9 Unclassified (1 source) OTH 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 CURRENT DRUG THERAPY Onset: 9 Unclassified (1 source) TYPE 2 DM WITHOUT COMPLICATIONS Onset: 9 Unclassified (1 source) JAIL CURRENT USE OF INSULIN Onset: 9 Unclassified (1 source) 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 USE ORAL HYPOGLYCEMIC DX Onset: 9 Unclassified (1 source) 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 CURRENT 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 OF ASPIRIN Onset: 9 Unclassified [...] 05-08-2023 05-08-2023 Episodic Other aftercare (7 sources) assisted (current) use of insulin; Translations: [JAIL CURRENT USE OF INSULIN] Onset: 10-22-2022 Episodic Other aftercare (1 source) 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/antip latelets; Translations: [JAIL ANTITHROMBOT/ANTIPLAT LETS] Onset: 04-02-2022 Episodic Other aftercare (20 sources) Long-term current use of drug therapy; Translations: [Encounter for therapeutic drug level monitoring] Onset: 05-13-2024 Resolved: 08-05-2024 05-13-2024 Episodic Other aftercare (2 sources) Encounter for therapeutic drug level monitoring; Translations: [Encounter for therapeutic drug level monitoring] Onset: 05-13-2024 Episodic Other aftercare (2 sources) 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; 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] Onset: 05-13-2024 [...] bacterial skin contaminants 2 Days PERFORMED BY: [place] [address] PATHOLOGIST BODY DESIGNER HARESH Cardenas [facility] Comment on above: Performed By: #### C UU #### [address] BASIC METABOLIC PANELon 11-22 Anion gap [Moles/Vol] 6 mmol/L Normal 5-15 [facility] Comment on above: Performed By: #### B EDG #### [facility] ([facility]) [address] [place] [address] VIR Calcium [Mass/Vol] 8.4 mg/dL Low 8.5-10.5 [facility] Comment on above: Performed By: #### B EDG #### [facility] ([facility]) [address] [place] [address] VIR Chloride [Moles/Vol] 111 mmol/L High 98-109 [facility] Comment on above: Performed By: #### B EDG #### [facility] ([facility]) [address] [place] [address] VIR CO2 [Moles/Vol] 22 mmol/L Normal 22-32 [facility] Comment on above: Performed By: #### B EDG #### [facility] ([facility]) [address] [place] [address] VIR Creatinine [Mass/Vol] 0.95 mg/dL Normal 0.40-1.00 [facility] Comment on above: Result Comment: METH OD TRACEABLE TO IDMS STANDARD Performed By: #### B EDG #### [facility] ([facility]) [address] [place] [address] VIR GFR/1.73 sq M.predicted among non-blacks MDRD (S/P/Bld) [Vol rate/Area] 74 mL/min/{1.73_m2} Normal >=60 [facility] Comment on above: Result Comment: Repo rted eGFR is based on the CKD-EPI 2020 equation that does not use a race coefficient. Performed By: #### B EDG #### [facility] ([facility]) [address] [place] [address] VIR Glucose [Mass/Vol] 225 mg/dL High 65-99 [facility] Comment on above: Performed By: #### B EDG #### [facility] ([facility]) [address] [place] [address] VIR Potassium [Moles/Vol] 4.6 mmol/L Normal 3.5-5.0 [facility] Comment on above: Performed By: #### B EDG #### [facility] ([facility]) [address] [place] [address] VIR Sodium [Moles/Vol] 139 mmol/L Normal 134-146 [facility] Comment on above: Performed By: #### B EDG #### [facility] ([facility]) [address] [place] [address] VIR Urea nitrogen [Mass/Vol] 17 mg/dL Normal 5-23 [facility] Comment on above: Performed By: #### B EDG #### [facility] ([facility]) [address] [place] [address] VIR BEDSIDE GLUCOSEon 12-05-2024 Glucose [Mass/Vol] 244 mg/dL High 65-99 [facility] Comment on above: Performed By: #### B EDG #### [facility] ([facility]) [address] [place] [address] VIR Glucose [Mass/Vol] 265 mg/dL High 65-99 [facility] Comment on above: Performed By: #### B EDG #### [facility] ([facility]) [address] [place] [address] VIR Basic Metabolic Panelon 11-22 Anion gap [Moles/Vol] 6 mmol/L 5 - 15 mmol/L [facility] Calcium [Mass/Vol] 8.4 mg/dL Low 8.5 - 10. 5 mg/dL [facility] Chloride [Moles/Vol] 111 mmol/L High 98 - 10 9 mmol/L [facility] CO2 [Moles/Vol] 22 mmol/L 22 - 32 mmol/L [facility] Creatinine [Mass/Vol] 0.95 mg/dL 0.40 - 1.00 mg/dL [facility] Comment on above: METHOD TRACEABLE TO IDMS STANDARD EGFR Non-Race Dependent 74 - PINF [facility] Comment on above: Reported eGFR is bas ed on the CKD-EPI 2020 equation that does not use a race coefficient. Glucose [Mass/Vol] 225 mg/dL High 65 - 99 mg/dL [facility] Interpretation and review of laboratory results Abnormal [facility] Potassium [Moles/Vol] 4.6 mmol/L 3.5 - 5.0 mmol/L [facility] Sodium [Moles/Vol] 139 mmol/L 134 - 146 mmol/L [facility] Urea nitrogen [Mass/Vol] 17 mg/dL 5 - 23 mg/dL [facility] Bedside Glucose *Place/Obtai n serum glucose if >500 per glucometer.on 12-05-2024 Glucose [Mass/Vol] 244 mg/dL High 65 - 99 mg/dL [facility] Interpretation and review of laboratory results Abnormal [facility] Glucose [Mass/Vol] 265 mg/dL High 65 - 99 mg/dL [facility] Interpretation and review of laboratory results Abnormal [facility] BASIC METABOLIC PANELon 11-22 Anion gap [Moles/Vol] 8 mmol/L Normal 5-15 [facility] Comment on above: Performed By: #### B EDG #### [facility] ([facility]) [address] [place] [address] VIR Calcium [Mass/Vol] 7.6 mg/dL Low 8.5-10.5 [facility] Comment on above: Performed By: #### B EDG #### [facility] ([facility]) [address] [place] [address] VIR Chloride [Moles/Vol] 111 mmol/L High 98-109 [facility] Comment on above: Performed By: #### B EDG #### [facility] ([facility]) [address] [place] [address] VIR CO2 [Moles/Vol] 20 mmol/L Low 22-32 [facility] Comment on above: Performed By: #### B EDG #### [facility] ([facility]) [address] [place] [address] VIR Creatinine [Mass/Vol] 0.89 mg/dL Normal 0.40-1.00 [facility] Comment on above: Result Comment: METH OD TRACEABLE TO IDMS STANDARD Performed By: #### B EDG #### [facility] ([facility]) [address] [place] [address] VIR GFR/1.73 sq M.predicted among non-blacks MDRD (S/P/Bld) [Vol rate/Area] 80 mL/min/{1.73_m2} Normal >=60 [facility] Comment on above: Result Comment: [facility] eGFR is based on the CKD-EPI 2020 equation that does not use a race coefficient. Performed By: #### B EDG #### [facility] ([facility]) [address] [place] [address] VIR Glucose [Mass/Vol] 253 mg/dL High 65-99 [facility] Comment on above: Performed By: #### B EDG #### [facility] ([facility]) [address] [place] [address] VIR Potassium [Moles/Vol] 4.3 mmol/L Normal 3.5-5.0 [facility] Comment on above: Performed By: #### B EDG #### [facility] ([facility]) [address] [place] [address] VIR Sodium [Moles/Vol] 139 mmol/L Normal 134-146 [facility] Comment on above: Performed By: #### B EDG #### [facility] ([facility]) [address] [place] [address] VIR Urea nitrogen [Mass/Vol] 15 mg/dL Normal 5-23 [facility] Comment on above: Performed By: #### B EDG #### [facility] ([facility]) [address] [place] [address] VIR BEDSIDE GLUCOSEon 12-04-2024 Glucose [Mass/Vol] 348 mg/dL High [address] [place] [address] Comment on above: Performed By: #### B EDG #### [facility] ([facility]) [address] [place] [address] VIR Glucose [Mass/Vol] 200 mg/dL High [address] [place] [address] Comment on above: Performed By: #### B EDG #### [facility] ([facility]) [address] [place] [address] VIR Glucose [Mass/Vol] 348 mg/dL High [address] [place] [address] Comment on above: Performed By: #### B EDG #### [facility] ([facility]) [address] [place] [address] VIR Glucose [Mass/Vol] 251 mg/dL High [address] [place] [address] Comment on above: Performed By: #### B EDG #### [facility] ([facility]) [address] [place] [address] VIR Glucose [Mass/Vol] 262 mg/dL High [address] [place] [address] Comment on above: Performed By: #### B EDG #### [facility] ([facility]) [address] [place] [address] VIR Basic Metabolic Panelon 11-22 Anion gap [Moles/Vol] 8 mmol/L 5 - 15 mmol/L [facility] Calcium [Mass/Vol] 7.6 mg/dL Low 8.5 - 10. 5 mg/dL [facility] Chloride [Moles/Vol] 111 mmol/L High 98 - 10 9 mmol/L [facility] CO2 [Moles/Vol] 20 mmol/L Low 22 - 32 mmol/L [facility] Creatinine [Mass/Vol] 0.89 mg/dL 0.40 - 1.00 mg/dL [facility] Comment on above: METHOD TRACEABLE TO IDMS STANDARD EGFR Non-Race Dependent 80 - PINF [facility] Comment on above: Reported eGFR is bas ed on the CKD-EPI 2020 equation that does not use a race coefficient. Glucose [Mass/Vol] 253 mg/dL High 65 - 99 mg/dL [facility] Interpretation and review of laboratory results Abnormal [facility] Potassium [Moles/Vol] 4.3 mmol/L 3.5 - 5.0 mmol/L [facility] Sodium [Moles/Vol] 139 mmol/L 134 - 146 mmol/L [facility] Urea nitrogen [Mass/Vol] 15 mg/dL 5 - 23 mg/dL [facility] Bedside Glucose *Place/Obtai n serum glucose if >500 per glucometer.on 12-04-2024 Glucose [Mass/Vol] 348 mg/dL High 65 - 99 mg/dL [facility] Interpretation and review of laboratory results Abnormal [facility] Glucose [Mass/Vol] 200 mg/dL High 65 - 99 mg/dL [facility] Interpretation and review of laboratory results Abnormal [facility] Glucose [Mass/Vol] 348 mg/dL High 65 - 99 mg/dL [facility] Interpretation and review of laboratory results Abnormal [facility] Glucose [Mass/Vol] 251 mg/dL High 65 - 99 mg/dL [facility] Interpretation and review of laboratory results Abnormal [facility] Glucose [Mass/Vol] 257 mg/dL High 65 - 99 mg/dL [facility] Interpretation and review of laboratory results Abnormal [facility] Glucose [Mass/Vol] 262 mg/dL High 65 - 99 mg/dL [facility] Interpretation and review of laboratory results Abnormal [facility] CBC WITH AUTO DIFFERENTIALon 12-04-2024 BASOPHILS ABSOLUTE COUNT (10*3/UL) BY AUTOMATED COUNT 0.1 10*3/uL Normal 0.0-0.2 [facility] Comment on above: Performed By: #### B EDG #### [facility] ([facility]) [address] [place] [address] VIR BASOPHILS RELATIVE PERCENT BY AUTOMATED COUNT 1.1 % Normal [facility] Comment on above: Performed By: #### B EDG #### [facility] ([facility]) [address] [place] [address] VIR CELLAVISION DIFFERENTIAL TYPE AUTOMATED DIFFERENTIAL Normal [facility] Comment on above: Performed By: #### B EDG #### [facility] ([facility]) [address] [place] [address] VIR Eosinophils (Bld) [#/Vol] 0.2 10*3/uL Normal 0.0-0.4 [facility] Comment on above: Performed By: #### B EDG #### [facility] ([facility]) [address] [place] [address] VIR EOSINOPHILS RELATIVE PERCENT BY AUTOMATED COUNT 3.0 % Normal [facility] Comment on above: Performed By: #### B EDG #### [facility] ([facility]) [address] [place] [address] VIR Erythrocyte distribution width (RBC) [Ratio] 13.5 % Normal 11.5-15 [facility] Comment on above: Performed By: #### B EDG #### [facility] ([facility]) [address] [place] [address] VIR Hematocrit (Bld) [Volume fraction] 32.7 % Low 35-47 [facility] Comment on above: Performed By: #### B EDG #### [facility] ([facility]) [address] [place] [address] VIR Hemoglobin (Bld) [Mass/Vol] 11.2 g/dL Low 11.7-15.5 [facility] Comment on above: Performed By: #### B EDG #### [facility] ([facility]) [address] [place] [address] VIR LYMPHOCYTES ABSOLUTE COUNT (10*3/UL) BY AUTOMATED COUNT 2.0 10*3/uL Normal 1.0-3.5 [facility] Comment on above: Performed By: #### B EDG #### [facility] ([facility]) [address] [place] [address] VIR LYMPHOCYTES RELATIVE PERCENT BY AUTOMATED COUNT 38.3 % Normal [facility] Comment on above: Performed By: #### B EDG #### [facility] ([facility]) [address] [place] [address] VIR MCH (RBC) [Entitic mass] 30.4 pg Normal 27-34 [facility] Comment on above: Performed By: #### B EDG #### [facility] ([facility]) [address] [place] [address] VIR MCHC (RBC) [Mass/Vol] 34.1 g/dL Normal 32-36 [facility] Comment on above: Performed By: #### B EDG #### [facility] ([facility]) [address] [place] [address] VIR MCV (RBC) [Entitic vol] 89 fL Normal 80-100 [facility] Comment on above: Performed By: #### B EDG #### [facility] ([facility]) [address] [place] [address] VIR MONOCYTES ABSOLUTE COUNT (10*3/UL) BY AUTOMATED COUNT 0.3 10*3/uL Normal 0.0-0.9 [facility] Comment on above: Performed By: #### B EDG #### [facility] ([facility]) [address] [place] [address] VIR MONOCYTES RELATIVE PERCENT BY AUTOMATED COUNT 4.8 % Normal [facility] Comment on above: Performed By: #### B EDG #### [facility] ([facility]) [address] [place] [address] VIR NEUTROPHILS ABSOLUTE COUNT BY AUTOMATED COUNT 2.8 10*3/uL Normal 1.5-6.6 [facility] Comment on above: Performed By: #### B EDG #### [facility] ([facility]) [address] [place] [address] VIR NEUTROPHILS RELATIVE PERCENT BY AUTOMATED COUNT 52.8 % Normal [facility] Comment on above: Performed By: #### B EDG #### [facility] ([facility]) [address] [place] [address] VIR Platelet mean volume (Bld) [Entitic vol] 7.5 fL Normal 7-12 [facility] Comment on above: Performed By: #### B EDG #### [facility] ([facility]) [address] [place] [address] VIR Platelets (Bld) [#/Vol] 235 10*3/uL Normal 150-450 [facility] Comment on above: Performed By: #### B EDG #### [facility] ([facility]) [address] [place] [address] VIR RBC COUNT 3.67 X10E12/L Low 3.8-5.2 [facility] Comment on above: Performed By: #### B EDG #### [facility] ([facility]) [address] [place] [address] VIR WBC (Bld) [#/Vol] 5.3 10*3/uL Normal 4-11 [facility] Comment on above: Performed By: #### B EDG #### [facility] ([facility]) [address] [place] [address] VIR CBC auto differentialon 11-22 Basophils (Bld) [#/Vol] 0.1 10*3/uL 0.0 - 0.2 10*3/uL [facility] Basophils/100 WBC (Bld) 1.1 % [facility] Differential cell count method Nom (Bld) AUTOMATED DIFFERENTIAL [facility] Eosinophils (Bld) [#/Vol] 0.2 10*3/uL 0.0 - 0.4 10*3/uL [facility] Eosinophils/100 WBC (Bld) 3 % [facility] Erythrocyte distribution width (RBC) [Ratio] 13.5 % 11.5 - 15 % [facility] Hematocrit (Bld) [Volume fraction] 32.7 % Low 35 - 47 % [facility] Hemoglobin (Bld) [Mass/Vol] 11.2 g/dL Low 11.7 - 15.5 g/dL [facility] Interpretation and review of laboratory results Abnormal [facility] Lymphocytes (Bld) [#/Vol] 2 10*3/uL 1.0 - 3.5 10*3/uL [facility] Lymphocytes/100 WBC (Bld) 38.3 % [facility] MCH (RBC) [Entitic mass] 30.4 pg 27 - 34 pg [facility] MCHC (RBC) [Mass/Vol] 34.1 g/dL 32 - 3 6 g/dL [facility] MCV (RBC) [Entitic vol] 89 fL 80 - 100 fL [facility] Monocytes (Bld) [#/Vol] 0.3 10*3/uL 0.0 - 0.9 10*3/uL [facility] Monocytes/100 WBC (Bld) 4.8 % [facility] Neutrophils (Bld) [#/Vol] 2.8 10*3/uL 1.5 - 6.6 10*3/uL [facility] Neutrophils/100 WBC (Bld) 52.8 % [facility] Platelet mean volume (Bld) [Entitic vol] 7.5 fL 7 - 12 fL [facility] Platelets (Bld) [#/Vol] 235 10*3/uL [facility] RBC (Bld) [#/Vol] 3.67 10*6/uL Low [facility] WBC LM Ql (Sput) 5.3 [facility] Electrolyte panelon 12-05-19 25 Anion gap [Moles/Vol] 6 mmol/L 5 - 15 mmol/L [facility] Chloride [Moles/Vol] 110 mmol/L High 98 - 10 9 mmol/L [facility] CO2 [Moles/Vol] 20 mmol/L Low 22 - 32 mmol/L [facility] Interpretation and review of laboratory results Abnormal [facility] Potassium [Moles/Vol] 4.4 mmol/L 3.5 - 5.0 mmol/L [facility] Sodium [Moles/Vol] 136 mmol/L 134 - 146 mmol/L [facility] APTTon 12-03-2024 aPTT Coag (PPP) [Time] 25 s Low [facility] Interpretation and review of laboratory results Abnormal [facility] aPTT Coag (Bld) [Time] 25 s Low 26-37 [facility] Comment on above: Performed By: #### C MP #### [facility] ([facility]) [address] [place] [address] VIR BEDSIDE GLUCOSEon 12-03-2024 Glucose [Mass/Vol] 257 mg/dL High [address] [place] [address] Comment on above: Performed By: #### B EDG #### [facility] ([facility]) [address] [place] [address] VIR Glucose [Mass/Vol] 238 mg/dL High [address] [place] [address] Comment on above: Performed By: #### B EDG #### [facility] ([facility]) [address] [place] [address] VIR Glucose [Mass/Vol] 114 mg/dL High [address] [place] [address] Comment on above: Performed By: #### B EDG #### [facility] ([facility]) [address] [place] [address] VIR Glucose [Mass/Vol] 237 mg/dL High [address] [place] [address] Comment on above: Performed By: #### C MP #### [facility] ([facility]) [address] [place] [address] VIR Glucose [Mass/Vol] 269 mg/dL High [address] [place] [address] Comment on above: Performed By: #### C MP #### [facility] ([facility]) [address] [place] [address] VIR Glucose [Mass/Vol] 281 mg/dL High 65-99 [facility] Comment on above: Performed By: #### C MP #### [facility] ([facility]) [address] [place] [address] VIR Glucose [Mass/Vol] 301 mg/dL High [address] [place] [address] Comment on above: Performed By: #### C MP #### [facility] ([facility]) [address] [place] [address] VIR Glucose [Mass/Vol] 287 mg/dL High [address] [place] [address] Comment on above: Performed By: #### C MP #### [facility] ([facility]) [address] [place] [address] VIR Glucose [Mass/Vol] 344 mg/dL High [address] [place] [address] Comment on above: Performed By: #### C MP #### [facility] ([facility]) [address] [place] [address] VIR Glucose [Mass/Vol] 318 mg/dL High [address] [place] [address] Comment on above: Performed By: #### B EDG #### [facility] ([facility]) [address] [place] [address] VIR Glucose [Mass/Vol] 409 mg/dL Critically high [address] [place] [address] Comment on above: Performed By: #### B EDG #### [facility] ([facility]) [address] [place] [address] VIR BEDSIDE GLUCOSE BEDG >^500 Critically high [address] [place] [address] Comment on above: Performed By: #### B EDG #### [facility] ([facility]) [address] [place] [address] VIR BEDSIDE GLUCOSE BEDG >^500 Critically high [address] [place] [address] Comment on above: Performed By: #### B EDG #### [facility] ([facility]) [address] [place] [address] VIR Bedside Glucose *Place/Obtai n serum glucose if >500 per glucometer.on 12-03-2024 Glucose [Mass/Vol] 238 mg/dL High 65 - 99 mg/dL [facility] Interpretation and review of laboratory results Abnormal [facility] Glucose [Mass/Vol] 114 mg/dL High 65 - 99 mg/dL [facility] Interpretation and review of laboratory results Abnormal [facility] Glucose [Mass/Vol] 269 mg/dL High 65 - 99 mg/dL [facility] Glucose [Mass/Vol] 237 mg/dL High 65 - 99 mg/dL [facility] Glucose [Mass/Vol] 281 mg/dL High 65 - 99 mg/dL [facility] Interpretation and review of laboratory results Abnormal [facility] Glucose [Mass/Vol] 301 mg/dL High 65 - 99 mg/dL [facility] Interpretation and review of laboratory results Abnormal [facility] Glucose [Mass/Vol] 287 mg/dL High 65 - 99 mg/dL [facility] Interpretation and review of laboratory results Abnormal [facility] Glucose [Mass/Vol] 344 mg/dL High 65 - 99 mg/dL [facility] Interpretation and review of laboratory results Abnormal [facility] Glucose [Mass/Vol] 318 mg/dL High 65 - 99 mg/dL [facility] Interpretation and review of laboratory results Abnormal [facility] Glucose [Mass/Vol] 409 mg/dL Critically high 65 - 9 9 mg/dL [facility] Interpretation and review of laboratory results Abnormal [facility] Glucose [Mass/Vol] mg/dL Critically high 65 - 9 9 mg/dL [facility] Interpretation and review of laboratory results Abnormal [facility] Glucose [Mass/Vol] mg/dL Critically high 65 - 9 9 mg/dL [facility] Interpretation and review of laboratory results Abnormal [facility] CBC WITH AUTO DIFFERENTIALon 12-03-2024 BASOPHILS ABSOLUTE COUNT (10*3/UL) BY AUTOMATED COUNT 0.1 10*3/uL Normal 0.0-0.2 [facility] Comment on above: Performed By: #### C BCA #### [facility] ([facility]) [address] [place] [address] VIR BASOPHILS RELATIVE PERCENT BY AUTOMATED COUNT 1.5 % Normal [facility] Comment on above: Performed By: #### C BCA #### [facility] ([facility]) [address] [place] [address] VIR CELLAVISION DIFFERENTIAL TYPE AUTOMATED DIFFERENTIAL Normal [facility] Comment on above: Performed By: #### C BCA #### [facility] ([facility]) [address] [place] [address] VIR Eosinophils (Bld) [#/Vol] 0.2 10*3/uL Normal 0.0-0.4 [facility] Comment on above: Performed By: #### C BCA #### [facility] ([facility]) [address] [place] [address] VIR EOSINOPHILS RELATIVE PERCENT BY AUTOMATED COUNT 2.3 % Normal [facility] Comment on above: Performed By: #### C BCA #### [facility] ([facility]) [address] [place] [address] VIR Erythrocyte distribution width (RBC) [Ratio] 13.5 % Normal 11.5-15 [facility] Comment on above: Performed By: #### C BCA #### [facility] ([facility]) [address] [place] [address] VIR Hematocrit (Bld) [Volume fraction] 34.1 % Low 35-47 [facility] Comment on above: Performed By: #### C BCA #### [facility] ([facility]) [address] [place] [address] VIR Hemoglobin (Bld) [Mass/Vol] 11.7 g/dL Normal 11.7-15.5 [facility] Comment on above: Performed By: #### C BCA #### [facility] ([facility]) [address] [place] [address] VIR LYMPHOCYTES ABSOLUTE COUNT (10*3/UL) BY AUTOMATED COUNT 2.6 10*3/uL Normal 1.0-3.5 [facility] Comment on above: Performed By: #### C BCA #### [facility] ([facility]) [address] [place] [address] VIR LYMPHOCYTES RELATIVE PERCENT BY AUTOMATED COUNT 33.5 % Normal [facility] Comment on above: Performed By: #### C BCA #### [facility] ([facility]) [address] [place] [address] VIR MCH (RBC) [Entitic mass] 30.7 pg Normal 27-34 [facility] Comment on above: Performed By: #### C BCA #### [facility] ([facility]) [address] [place] [address] VIR MCHC (RBC) [Mass/Vol] 34.3 g/dL Normal 32-36 [facility] Comment on above: Performed By: #### C BCA #### [facility] ([facility]) [address] [place] [address] VIR MCV (RBC) [Entitic vol] 89 fL Normal 80-100 [facility] Comment on above: Performed By: #### C BCA #### [facility] ([facility]) [address] [place] [address] VIR MONOCYTES ABSOLUTE COUNT (10*3/UL) BY AUTOMATED COUNT 0.5 10*3/uL Normal 0.0-0.9 [facility] Comment on above: Performed By: #### C BCA #### [facility] ([facility]) [address] [place] [address] VIR MONOCYTES RELATIVE PERCENT BY AUTOMATED COUNT 6.3 % Normal [facility] Comment on above: Performed By: #### C BCA #### [facility] ([facility]) [address] [place] [address] VIR NEUTROPHILS ABSOLUTE COUNT BY AUTOMATED COUNT 4.4 10*3/uL Normal 1.5-6.6 [facility] Comment on above: Performed By: #### C BCA #### [facility] ([facility]) [address] [place] [address] VIR NEUTROPHILS RELATIVE PERCENT BY AUTOMATED COUNT 56.4 % Normal [facility] Comment on above: Performed By: #### C BCA #### [facility] ([facility]) [address] [place] [address] VIR Platelet mean volume (Bld) [Entitic vol] 7.5 fL Normal 7-12 [facility] Comment on above: Performed By: #### C BCA #### [facility] ([facility]) [address] [place] [address] VIR Platelets (Bld) [#/Vol] 244 10*3/uL Normal 150-450 [facility] Comment on above: Performed By: #### C BCA #### [facility] ([facility]) [address] [place] [address] VIR RBC COUNT 3.81 X10E12/L Normal 3.8-5.2 [facility] Comment on above: Performed By: #### C BCA #### [facility] ([facility]) [address] [place] [address] VIR WBC (Bld) [#/Vol] 7.7 10*3/uL Normal 4-11 [facility] Comment on above: Performed By: #### C BCA #### [facility] ([facility]) [address] [place] [address] VIR BASOPHILS ABSOLUTE COUNT (10*3/UL) BY AUTOMATED COUNT 0.1 10*3/uL Normal 0.0-0.2 [facility] Comment on above: Performed By: #### C BCA #### [facility] ([facility]) [address] [place] [address] VIR BASOPHILS RELATIVE PERCENT BY AUTOMATED COUNT 1.0 % Normal [facility] Comment on above: Performed By: #### C BCA #### [facility] ([facility]) [address] [place] [address] VIR CELLAVISION DIFFERENTIAL TYPE AUTOMATED DIFFERENTIAL Normal [facility] Comment on above: Performed By: #### C BCA #### [facility] ([facility]) [address] [place] [address] VIR Eosinophils (Bld) [#/Vol] 0.1 10*3/uL Normal 0.0-0.4 [facility] Comment on above: Performed By: #### C BCA #### [facility] ([facility]) [address] [place] [address] VIR EOSINOPHILS RELATIVE PERCENT BY AUTOMATED COUNT 2.1 % Normal [facility] Comment on above: Performed By: #### C BCA #### [facility] ([facility]) [address] [place] [address] VIR Erythrocyte distribution width (RBC) [Ratio] 13.5 % Normal 11.5-15 [facility] Comment on above: Performed By: #### C BCA #### [facility] ([facility]) [address] [place] [address] VIR Hematocrit (Bld) [Volume fraction] 38.7 % Normal 35-47 [facility] Comment on above: Performed By: #### C BCA #### [facility] ([facility]) [address] [place] [address] VIR Hemoglobin (Bld) [Mass/Vol] 13.2 g/dL Normal 11.7-15.5 [facility] Comment on above: Performed By: #### C BCA #### [facility] ([facility]) [address] [place] [address] VIR LYMPHOCYTES ABSOLUTE COUNT (10*3/UL) BY AUTOMATED COUNT 1.7 10*3/uL Normal 1.0-3.5 [facility] Comment on above: Performed By: #### C BCA #### [facility] ([facility]) [address] [place] [address] VIR LYMPHOCYTES RELATIVE PERCENT BY AUTOMATED COUNT 24.3 % Normal [facility] Comment on above: Performed By: #### C BCA #### [facility] ([facility]) [address] [place] [address] VIR MCH (RBC) [Entitic mass] 31.0 pg Normal 27-34 [facility] Comment on above: Performed By: #### C BCA #### [facility] ([facility]) [address] [place] [address] VIR MCHC (RBC) [Mass/Vol] 34.0 g/dL Normal 32-36 [facility] Comment on above: Performed By: #### C BCA #### [facility] ([facility]) [address] [place] [address] VIR MCV (RBC) [Entitic vol] 91 fL Normal 80-100 [facility] Comment on above: Performed By: #### C BCA #### [facility] ([facility]) [address] [place] [address] VIR MONOCYTES ABSOLUTE COUNT (10*3/UL) BY AUTOMATED COUNT 0.4 10*3/uL Normal 0.0-0.9 [facility] Comment on above: Performed By: #### C BCA #### [facility] ([facility]) [address] [place] [address] VIR MONOCYTES RELATIVE PERCENT BY AUTOMATED COUNT 6.1 % Normal [facility] Comment on above: Performed By: #### C BCA #### [facility] ([facility]) [address] [place] [address] VIR NEUTROPHILS ABSOLUTE COUNT BY AUTOMATED COUNT 4.7 10*3/uL Normal 1.5-6.6 [facility] Comment on above: Performed By: #### C BCA #### [facility] ([facility]) [address] [place] [address] VIR NEUTROPHILS RELATIVE PERCENT BY AUTOMATED COUNT 66.5 % Normal [facility] Comment on above: Performed By: #### C BCA #### [facility] ([facility]) [address] [place] [address] VIR Platelet mean volume (Bld) [Entitic vol] 8.2 fL Normal 7-12 [facility] Comment on above: Performed By: #### C BCA #### [facility] ([facility]) [address] [facility] [address] [place] [address] VIR Platelets (Bld) [#/Vol] 234 10*3/uL Normal 150-450 [facility] Comment on above: Performed By: #### C BCA #### [facility] ([facility]) [address] [facility] [address] [place] [address] VIR RBC COUNT 4.24 X10E12/L Normal 3.8-5.2 [facility] Comment on above: Performed By: #### C BCA #### [facility] ([facility]) [address] [facility] [address] [place] [address] VIR WBC (Bld) [#/Vol] 7.1 10*3/uL Normal 4-11 [facility] Comment on above: Performed By: #### C BCA #### [facility] ([facility]) [address] [facility] [address] [place] [address] VIR CBC auto differentialon 11-22 Basophils (Bld) [#/Vol] 0.1 10*3/uL 0.0 - 0.2 10*3/uL [facility] Basophils/100 WBC (Bld) 1.5 % [facility] Differential cell count method Nom (Bld) AUTOMATED DIFFERENTIAL [facility] Eosinophils (Bld) [#/Vol] 0.2 10*3/uL 0.0 - 0.4 10*3/uL [facility] Eosinophils/100 WBC (Bld) 2.3 % [facility] Erythrocyte distribution width (RBC) [Ratio] 13.5 % 11.5 - 15 % [facility] Hematocrit (Bld) [Volume fraction] 34.1 % Low 35 - 47 % [facility] Hemoglobin (Bld) [Mass/Vol] 11.7 g/dL 11.7 - 15.5 g/dL [facility] Interpretation and review of laboratory results Abnormal [facility] Lymphocytes (Bld) [#/Vol] 2.6 10*3/uL 1.0 - 3.5 10*3/uL [facility] Lymphocytes/100 WBC (Bld) 33.5 % [facility] MCH (RBC) [Entitic mass] 30.7 pg 27 - 34 pg [facility] MCHC (RBC) [Mass/Vol] 34.3 g/dL 32 - 3 6 g/dL [facility] MCV (RBC) [Entitic vol] 89 fL 80 - 100 fL [facility] Monocytes (Bld) [#/Vol] 0.5 10*3/uL 0.0 - 0.9 10*3/uL [facility] Monocytes/100 WBC (Bld) 6.3 % [facility] Neutrophils (Bld) [#/Vol] 4.4 10*3/uL 1.5 - 6.6 10*3/uL [facility] Neutrophils/100 WBC (Bld) 56.4 % [facility] Platelet mean volume (Bld) [Entitic vol] 7.5 fL 7 - 12 fL [facility] Platelets (Bld) [#/Vol] 244 10*3/uL [facility] RBC (Bld) [#/Vol] 3.81 10*6/uL [facility] WBC LM Ql (Sput) 7.7 [facility] Basophils (Bld) [#/Vol] 0.1 10*3/uL 0.0 - 0.2 10*3/uL [facility] Basophils/100 WBC (Bld) 1 % [facility] Differential cell count method Nom (Bld) AUTOMATED DIFFERENTIAL [facility] Eosinophils (Bld) [#/Vol] 0.1 10*3/uL 0.0 - 0.4 10*3/uL [facility] Eosinophils/100 WBC (Bld) 2.1 % [facility] Erythrocyte distribution width (RBC) [Ratio] 13.5 % 11.5 - 15 % [facility] Hematocrit (Bld) [Volume fraction] 38.7 % 35 - 47 % [facility] Hemoglobin (Bld) [Mass/Vol] 13.2 g/dL 11.7 - 15.5 g/dL [facility] Lymphocytes (Bld) [#/Vol] 1.7 10*3/uL 1.0 - 3.5 10*3/uL [facility] Lymphocytes/100 WBC (Bld) 24.3 % [facility] MCH (RBC) [Entitic mass] 31 pg 27 - 34 pg [facility] MCHC (RBC) [Mass/Vol] 34 g/dL 32 - 3 6 g/dL [facility] MCV (RBC) [Entitic vol] 91 fL 80 - 100 fL [facility] Monocytes (Bld) [#/Vol] 0.4 10*3/uL 0.0 - 0.9 10*3/uL [facility] Monocytes/100 WBC (Bld) 6.1 % [facility] Neutrophils (Bld) [#/Vol] 4.7 10*3/uL 1.5 - 6.6 10*3/uL [facility] Neutrophils/100 WBC (Bld) 66.5 % [facility] Platelet mean volume (Bld) [Entitic vol] 8.2 fL 7 - 12 fL [facility] Platelets (Bld) [#/Vol] 234 10*3/uL [facility] RBC (Bld) [#/Vol] 4.24 10*6/uL [facility] WBC LM Ql (Sput) 7.1 [facility] COMPREHENSIVE METABOLIC PANE [place] 12-03-2024 Albumin [Mass/Vol] 3.4 g/dL Normal 3.2-5.3 [facility] Comment on above: Performed By: #### C MP #### [facility] ([facility]) [address] [place] [address] VIR ALP [Catalytic activity/Vol] 104 U/L Normal 39-130 [facility] Comment on above: Performed By: #### C MP #### [facility] ([facility]) [address] [place] [address] VIR ALT [Catalytic activity/Vol] 10 U/L Normal <=31 [facility] Comment on above: Performed By: #### C MP #### [facility] ([facility]) [address] [place] [address] VIR Anion gap [Moles/Vol] 11 mmol/L Normal 5-15 [facility] Comment on above: Performed By: #### C MP #### [facility] ([facility]) [address] [place] [address] VIR AST [Catalytic activity/Vol] 11 U/L Normal <=41 [facility] Comment on above: Performed By: #### C MP #### [facility] ([facility]) [address] [place] [address] VIR Bilirubin [Mass/Vol] 0.4 mg/dL Normal 0.3-1.2 [facility] Comment on above: Performed By: #### C MP #### [facility] ([facility]) [address] [place] [address] VIR Calcium [Mass/Vol] 8.1 mg/dL Low 8.5-10.5 [facility] Comment on above: Performed By: #### C MP #### [facility] ([facility]) [address] [place] [address] VIR Chloride [Moles/Vol] 101 mmol/L Normal 98-109 [facility] Comment on above: Performed By: #### C MP #### [facility] ([facility]) [address] [place] [address] VIR CO2 [Moles/Vol] 21 mmol/L Low 22-32 [facility] Comment on above: Performed By: #### C MP #### [facility] ([facility]) [address] [place] [address] VIR Creatinine [Mass/Vol] 1.40 mg/dL High 0.40-1.00 [facility] Comment on above: Result Comment: METH OD TRACEABLE TO IDMS STANDARD Performed By: #### C MP #### [facility] ([facility]) [address] [address] [place] [address] VIR GFR/1.73 sq M.predicted among non-blacks MDRD (S/P/Bld) [Vol rate/Area] 47 mL/min/{1.73_m2} Low >=60 [facility] Comment on above: Result Comment: Repo rted eGFR is based on the CKD-EPI 2020 equation that does not use a race coefficient. Performed By: #### C MP #### [facility] ([facility]) [address] [place] [address] VIR Glucose [Mass/Vol] 640 mg/dL Critically high 65-99 [facility] Comment on above: Performed By: #### C MP #### [facility] ([facility]) [address] [place] [address] VIR Potassium [Moles/Vol] 4.3 mmol/L Normal 3.5-5.0 [facility] Comment on above: Performed By: #### C MP #### [facility] ([facility]) [address] [place] [address] VIR Protein [Mass/Vol] 6.0 g/dL Normal 6.0-8.0 [facility] Comment on above: Performed By: #### C MP #### [facility] ([facility]) [address] [place] [address] VIR Sodium [Moles/Vol] 133 mmol/L Low 134-146 [facility] Comment on above: Performed By: #### C MP #### [facility] ([facility]) [address] [place] [address] VIR Urea nitrogen [Mass/Vol] 21 mg/dL Normal 5-23 [facility] Comment on above: Performed By: #### C MP #### [facility] ([facility]) [address] [place] [address] VIR Comprehensive metabolic pane lOrdered By: Etelvina Richards on 12-03-2024 Albumin [Mass/Vol] 3.4 g/dL 3.2 - 5.3 g/dL [facility] ALP [Catalytic activity/Vol] 104 U/L 39 - 130 U/L [facility] ALT No additional P-5'-P [Catalytic activity/Vol] 10 U/L NINF - 31 U/L [facility] Anion gap [Moles/Vol] 11 mmol/L 5 - 15 mmol/L [facility] AST [Catalytic activity/Vol] 11 U/L NINF - 41 U/L [facility] Bilirubin [Mass/Vol] 0.4 mg/dL 0.3 - 1 .2 mg/dL [facility] Calcium [Mass/Vol] 8.1 mg/dL Low 8.5 - 10. 5 mg/dL [facility] Chloride [Moles/Vol] 101 mmol/L 98 - 10 9 mmol/L [facility] CO2 [Moles/Vol] 21 mmol/L Low 22 - 32 mmol/L [facility] Creatinine [Mass/Vol] 1.4 mg/dL High 0.40 - 1.00 mg/dL [facility] Comment on above: METHOD TRACEABLE TO IDMS STANDARD EGFR Non-Race Dependent 47 Low - PINF [facility] Comment on above: Reported eGFR is bas ed on the CKD-EPI 2020 equation that does not use a race coefficient. Glucose [Mass/Vol] 640 mg/dL Critically high 65 - 9 9 mg/dL [facility] Interpretation and review of laboratory results Abnormal [facility] Potassium [Moles/Vol] 4.3 mmol/L 3.5 - 5.0 mmol/L [facility] Protein [Mass/Vol] 6 g/dL 6.0 - 8.0 g/dL [facility] Sodium [Moles/Vol] 133 mmol/L Low 134 - 146 mmol/L [facility] Urea nitrogen [Mass/Vol] 21 mg/dL 5 - 23 mg/dL [facility] ELECTROLYTE PANELon 12-04-19 25 Anion gap [Moles/Vol] 6 mmol/L Normal 5-15 [facility] Comment on above: Performed By: #### B EDG #### [facility] ([facility]) [address] [place] [address] VIR Chloride [Moles/Vol] 110 mmol/L High 98-109 [facility] Comment on above: Performed By: #### B EDG #### [facility] ([facility]) [address] [place] [address] VIR CO2 [Moles/Vol] 20 mmol/L Low 22-32 [facility] Comment on above: Performed By: #### B EDG #### [facility] ([facility]) [address] [place] [address] VIR Potassium [Moles/Vol] 4.4 mmol/L Normal 3.5-5.0 [facility] Comment on above: Performed By: #### B EDG #### [facility] ([facility]) [address] [place] [address] VIR Sodium [Moles/Vol] 136 mmol/L Normal 134-146 [facility] Comment on above: Performed By: #### B EDG #### [facility] ([facility]) [address] [place] [address] VIR ELECTROLYTE PANEL ELEC ELECTROLYTE KENDRICK EL Cancelled Normal [facility] Comment on above: Order Comment: See 2 [id number] Anion gap [Moles/Vol] 7 mmol/L Normal 5-15 [facility] Comment on above: Performed By: #### B EDG #### [facility] ([facility]) [address] [place] [address] VIR Chloride [Moles/Vol] 109 mmol/L Normal 98-109 [facility] Comment on above: Performed By: #### B EDG #### [facility] ([facility]) [address] [place] [address] VIR CO2 [Moles/Vol] 21 mmol/L Low 22-32 [facility] Comment on above: Performed By: #### B EDG #### [facility] ([facility]) [address] [facility] [place] [address] VIR Potassium [Moles/Vol] 4.4 mmol/L Normal 3.5-5.0 [facility] Comment on above: Performed By: #### B EDG #### [facility] ([facility]) [address] [place] [place] [address] VIR Sodium [Moles/Vol] 137 mmol/L Normal 134-146 [facility] Comment on above: Performed By: #### B EDG #### [facility] ([facility]) [address] [place] [place] [address] VIR Anion gap [Moles/Vol] 8 mmol/L Normal 5-15 [facility] Comment on above: Performed By: #### C MP #### [facility] ([facility]) [address] [place] [address] VIR Chloride [Moles/Vol] 107 mmol/L Normal 98-109 [facility] Comment on above: Performed By: #### C MP #### [facility] ([facility]) [address] [place] [address] VIR CO2 [Moles/Vol] 23 mmol/L Normal 22-32 [facility] Comment on above: Performed By: #### C MP #### [facility] ([facility]) [address] [place] [address] VIR Potassium [Moles/Vol] 4.2 mmol/L Normal 3.5-5.0 [facility] Comment on above: Performed By: #### C MP #### [facility] ([facility]) [address] [place] [address] VIR Sodium [Moles/Vol] 138 mmol/L Normal 134-146 [facility] Comment on above: Performed By: #### C MP #### [facility] ([facility]) [address] [place] [address] VIR Anion gap [Moles/Vol] 7 mmol/L Normal 5-15 [facility] Comment on above: Performed By: #### C MP #### [facility] ([facility]) [address] [place] [address] VIR Chloride [Moles/Vol] 106 mmol/L Normal 98-109 [facility] Comment on above: Performed By: #### C MP #### [facility] ([facility]) [address] [place] [address] VIR CO2 [Moles/Vol] 24 mmol/L Normal 22-32 [facility] Comment on above: Performed By: #### C MP #### [facility] ([facility]) [address] [place] [address] VIR Potassium [Moles/Vol] 4.2 mmol/L Normal 3.5-5.0 [facility] Comment on above: Performed By: #### C MP #### [facility] ([facility]) [address] [place] [address] VIR Sodium [Moles/Vol] 137 mmol/L Normal 134-146 [facility] Comment on above: Performed By: #### C MP #### [facility] ([facility]) [address] [place] [address] VIR Anion gap [Moles/Vol] 11 mmol/L Normal 5-15 [facility] Comment on above: Performed By: #### C MP #### [facility] ([facility]) [address] [place] [address] VIR Chloride [Moles/Vol] 105 mmol/L Normal 98-109 [facility] Comment on above: Performed By: #### C MP #### [facility] ([facility]) [address] [place] [address] VIR CO2 [Moles/Vol] 21 mmol/L Low 22-32 [facility] Comment on above: Performed By: #### C MP #### [facility] ([facility]) [address] [place] [address] VIR Potassium [Moles/Vol] 3.8 mmol/L Normal 3.5-5.0 [facility] Comment on above: Performed By: #### C MP #### [facility] ([facility]) [address] [place] [address] VIR Sodium [Moles/Vol] 137 mmol/L Normal 134-146 [facility] Comment on above: Performed By: #### C MP #### [facility] ([facility]) [address] [place] [address] VIR ELECTROLYTE PANEL ELEC ELECTROLYTE KENDRICK EL Cancelled Normal [facility] Electrolyte panelon 12-04-19 25 Anion gap [Moles/Vol] 7 mmol/L 5 - 15 mmol/L [facility] Chloride [Moles/Vol] 109 mmol/L 98 - 10 9 mmol/L [facility] CO2 [Moles/Vol] 21 mmol/L Low 22 - 32 mmol/L [facility] Interpretation and review of laboratory results Abnormal [facility] Potassium [Moles/Vol] 4.4 mmol/L 3.5 - 5.0 mmol/L [facility] Sodium [Moles/Vol] 137 mmol/L 134 - 146 mmol/L [facility] Anion gap [Moles/Vol] 8 mmol/L 5 - 15 mmol/L [facility] Chloride [Moles/Vol] 107 mmol/L 98 - 10 9 mmol/L [facility] CO2 [Moles/Vol] 23 mmol/L 22 - 32 mmol/L [facility] Interpretation and review of laboratory results Normal [facility] Potassium [Moles/Vol] 4.2 mmol/L 3.5 - 5.0 mmol/L [facility] Sodium [Moles/Vol] 138 mmol/L 134 - 146 mmol/L [facility] Anion gap [Moles/Vol] 7 mmol/L 5 - 15 mmol/L [facility] Chloride [Moles/Vol] 106 mmol/L 98 - 10 9 mmol/L [facility] CO2 [Moles/Vol] 24 mmol/L 22 - 32 mmol/L [facility] Interpretation and review of laboratory results Normal [facility] Potassium [Moles/Vol] 4.2 mmol/L 3.5 - 5.0 mmol/L [facility] Sodium [Moles/Vol] 137 mmol/L 134 - 146 mmol/L [facility] Anion gap [Moles/Vol] 11 mmol/L 5 - 15 mmol/L [facility] Chloride [Moles/Vol] 105 mmol/L 98 - 10 9 mmol/L [facility] CO2 [Moles/Vol] 21 mmol/L Low 22 - 32 mmol/L [facility] Interpretation and review of laboratory results Abnormal [facility] Potassium [Moles/Vol] 3.8 mmol/L 3.5 - 5.0 mmol/L [facility] Sodium [Moles/Vol] 137 mmol/L 134 - 146 mmol/L [facility] HEMOGLOBIN A1Con 12-03-2024 Glucose [Mass/Vol] 344 mg/dL Normal [facility] Comment on above: Performed By: #### H A1C #### [facility] ([facility]) [address] [place] [address] VIR HbA1c (Bld) [Mass fraction] 13.6 % High 4.4-5.6 [facility] Comment on above: Result Comment: ADA Guidelines Result HgbA1c Normal : less than 5.7 % Prediabetes : 5.7 % to 6.4 % Diabetes : > 6.4 % Use with caution in patients with abnormal hemoglobin variants as the half-life of red blood cells and in vivo glycation rates are affected. Performed By: #### H A1C #### [facility] ([facility]) [address] [place] [address] VIR Hemoglobin A1con 12-03-2024 Average glucose Estimated from glycated hemoglobin (Bld) [Mass/Vol] 344 mg/dL [facility] HbA1c (Bld) [Mass fraction] 13.6 % High 4.4 - 5.6 % [facility] Comment on above: ADA Guidelines Result HgbA1c Normal : less than 5.7 % Prediabetes : 5.7 % to 6.4 % Diabetes : > 6.4 % Use with caution in patients with abnormal hemoglobin variants as the half-life of red blood cells and in vivo glycation rates are affected. Interpretation and review of laboratory results Abnormal [facility] No Panel Informationon 12-03 Interpretation and review of laboratory results Abnormal [facility] TSH WITH REFLEXon 12-03-2024 TSH 3.02 uIU/mL Normal 0.49-4.67 [facility] Comment on above: Performed By: #### T SHR #### [facility] ([facility]) [address] [place] [address] VIR TSH with Reflexon 12-03-2024 Interpretation and review of laboratory results Normal [facility] TSH Qn 3.02 m[IU]/L [facility] 30on 10-05-2024 30 The patient is Moder ately Stable - Low risk of patient condition declining or worsening The patient's goals for the shift include comfort The clinical goals for the shift include safety Normal [facility] BASIC METABOLIC PANELon 09-22 Anion gap [Moles/Vol] 9 mmol/L Normal 7-20 [facility] Comment on above: Performed By: #### L [id number] #### [facility] [address] [place] [address] Calcium [Mass/Vol] 8.4 mg/dL Low 8.6-10.3 [facility] Comment on above: Performed By: #### L [id number] #### [facility] ([facility]) [address] [place] [address] Chloride [Moles/Vol] 109 mmol/L High 98-107 [facility] Comment on above: Performed By: #### L [id number] #### [facility] ([facility]) [address] [place] [address] CO2 [Moles/Vol] 28 mmol/L Normal 21-31 [facility] Comment on above: Performed By: #### L [id number] #### [facility] ([facility]) [address] [place] [address] Creatinine [Mass/Vol] 1.26 mg/dL High 0.60-1.20 [facility] Comment on above: Performed By: #### L [id number] #### [facility] ([facility]) [address] [place] [address] GLOMERULAR FILTRATION RATE ML/MIN/1.73 SQ M.PREDICTED 53.0 mL/min/1.73m*2 Low >60.0 [facility] Comment on above: Result Comment: [facility]???s estimated glomerular filtration rate (eGFR) will [...] group of individuals. Performed By: #### L [id number] #### [facility] ([facility]) [address] [place] [address] Glucose [Mass/Vol] 108 mg/dL High 70-100 [facility] Comment on above: Performed By: #### L [id number] #### [facility] ([facility]) [address] [place] [address] Potassium [Moles/Vol] 4.1 mmol/L Normal 3.5-5.1 [facility] Comment on above: Performed By: #### L [id number] #### [facility] ([facility]) [address] [place] [address] Sodium [Moles/Vol] 142 mmol/L Normal 136-145 [facility] Comment on above: Performed By: #### L [id number] #### [facility] ([facility]) [address] [place] [address] Urea nitrogen [Mass/Vol] 28 mg/dL High 7-25 [facility] Comment on above: Performed By: #### L [id number] #### [facility] ([facility]) [address] [place] [address] UREA NITROGEN/CREATININE (MASS RATIO) IN SER/PLAS 22.2 Normal [facility] Comment on above: Performed By: #### L [id number] #### [facility] ([facility]) [address] [place] [address] CBC WITH AUTO DIFFERENTIALon 10-05-2024 Basophils (Bld) [#/Vol] 0.06 10*3/uL Normal 0.00-0.20 [facility] Comment on above: Performed By: #### L [id number] ####[facility] ([facility])[address] [place] [address] Basophils/100 WBC (Bld) 1.1 % High 0.0-1.0 [facility] Comment on above: Performed By: #### L [id number] ####[facility] ([facility])[address] [place] [address] Eosinophils (Bld) [#/Vol] 0.19 10*3/uL Normal 0.00-0.50 [facility] Comment on above: Performed By: #### L [id number] ####[facility] ([facility])[address] [place] [address] Eosinophils/100 WBC (Bld) 3.5 % Normal 0.0-6.0 [facility] Comment on above: Performed By: #### L [id number] ####[facility] ([facility])[address] [place] [address] Erythrocyte distribution width (RBC) [Ratio] 13.5 % Normal 11.5-15.0 [facility] Comment on above: Performed By: #### L [id number] ####[facility] ([facility])[address] [place] [address] ERYTHROCYTE MEAN CORPUSCULAR HEMOGLOBIN CONCENTRATION (G/DL) BY AUTOMATED 32.4 g/dL Normal 32.0-35.0 [facility] Comment on above: Performed By: #### L [id number] ####[facility] ([facility])[address] [place] [address] Hematocrit (Bld) [Volume fraction] 31.5 % Low 36.0-45.0 [facility] Comment on above: Performed By: #### L [id number] ####[facility] ([facility])[address] [place], [place] [address] Hemoglobin (Bld) [Mass/Vol] 10.2 g/dL Low 12.0-15.0 [facility] Comment on above: Performed By: #### L [id number] ####[facility] ([facility])[address] [place], [place] [address] Immature granulocytes (Bld) [#/Vol] 0.02 10*3/uL Normal 0.00-0.20 [facility] Comment on above: Performed By: #### L [id number] ####[facility] ([facility])[address] [place], [place] [address] Immature granulocytes/100 WBC (Bld) 0.4 % Normal 0.0-1.0 [facility] Comment on above: Performed By: #### L [id number] ####[facility] ([facility])[address] [place], [place] [address] Lymphocytes (Bld) [#/Vol] 2.24 10*3/uL Normal 1.20-4.00 [facility] Comment on above: Performed By: #### L [id number] ####[facility] ([facility])[address] [place] [address] Lymphocytes/100 WBC (Bld) 41.0 % Normal 20.0-45.0 [facility] Comment on above: Performed By: #### L [id number] ####[facility] ([facility])[address] [place] [address] MCH (RBC) [Entitic mass] 30.4 pg Normal 27.0-33.0 [facility] Comment on above: Performed By: #### L [id number] ####[facility] ([facility])[address] [place] [address] MCV (RBC) [Entitic vol] 93.8 fL Normal 82.0-98.0 [facility] Comment on above: Performed By: #### L [id number] ####[facility] ([facility])[address] [place] [address] Monocytes (Bld) [#/Vol] 0.48 10*3/uL Normal 0.10-1.00 [facility] Comment on above: Performed By: #### L [id number] ####[facility] ([facility])[address] [place] [address] Monocytes/100 WBC (Bld) 8.8 % Normal 5.0-12.0 [facility] Comment on above: Performed By: #### L [id number] ####[facility] ([facility])[address] [place] [address] Neutrophils (Bld) [#/Vol] 2.48 10*3/uL Normal 1.60-7.60 [facility] Comment on above: Performed By: #### L [id number] ####[facility] ([facility])[address] [place] [address] Neutrophils/100 WBC (Bld) 45.2 % Normal 40.0-72.0 [facility] Comment on above: Performed By: #### L [id number] ####[facility] ([facility])[address] [place] [address] NRBC (PER 100 WBCS) BY AUTOMATED COUNT 0.0 % Normal 0 [facility] Comment on above: Performed By: #### L [id number] ####[facility] ([facility])[address] [place] [address] PLATELETS (10*3/UL) IN BLOOD AUTOMATED COUNT 271 10*3/uL Normal 150-400 [facility] Comment on above: Performed By: #### L [id number] ####[facility] ([facility])[address] [place] [address] RBC (Bld) [#/Vol] 3.36 10*6/uL Low 3.80-5.00 [facility] Comment on above: Performed By: #### L [id number] ####[facility] ([facility])[address] [place] [address] WBC (Bld) [#/Vol] 5.47 10*3/uL Normal 4.00-10.60 [facility] Comment on above: Performed By: #### L [id number] ####[facility] ([facility])[address] [place] [address] POCT GLUCOSE METER UNSOLICIT ED RESULTSon 10-05-2024 Glucose [Mass/Vol] 115 mg/dL High 70-105 [facility] Comment on above: Order Comment: Waive d Testing in the ED is performed under the ED CLIA certificate #[id number]. Result Comment: [email or web address] Performed By: #### L [id number] #### [facility] ([facility]) [address] [place] [address] Glucose [Mass/Vol] 123 mg/dL High 70-105 [facility] Comment on above: Order Comment: Waive d Testing in the ED is performed under the ED CLIA certificate #[id number]. Result Comment: [email or web address] Performed By: #### L [id number] ####[facility] ([facility])[address] [place] [address] BASIC METABOLIC PANELon 05- Anion gap [Moles/Vol] 10 mmol/L Normal 7-20 [facility] Comment on above: Performed By: #### L [id number] #### [facility] ([facility]) [address] [place] [address] Calcium [Mass/Vol] 8.2 mg/dL Low 8.6-10.3 [facility] Comment on above: Performed By: #### L [id number] #### [facility] ([facility]) [address] [place] [address] Chloride [Moles/Vol] 106 mmol/L Normal 98-107 [facility] Comment on above: Performed By: #### L [id number] #### [facility] ([facility]) [address] [place] [address] CO2 [Moles/Vol] 26 mmol/L Normal 21-31 [facility] Comment on above: Performed By: #### L [id number] #### [facility] ([facility]) [address] [place] [address] Creatinine [Mass/Vol] 1.75 mg/dL High 0.60-1.20 [facility] Comment on above: Performed By: #### L [id number] #### [facility] ([facility]) [address] [place] [address] GLOMERULAR FILTRATION RATE ML/MIN/1.73 SQ M.PREDICTED 35.7 mL/min/1.73m*2 Low >60.0 [facility] Comment on above: Result Comment: [facility]???s estimated glomerular filtration rate (eGFR) will [...] group of individuals. Performed By: #### L [id number] #### [facility] ([facility]) [address] [place] [address] Glucose [Mass/Vol] 134 mg/dL High 70-100 [facility] Comment on above: Performed By: #### L [id number] #### [facility] ([facility]) [address] [place] [address] Potassium [Moles/Vol] 4.0 mmol/L Normal 3.5-5.1 [facility] Comment on above: Performed By: #### L [id number] #### [facility] ([facility]) [address] [place] [address] Sodium [Moles/Vol] 138 mmol/L Normal 136-145 [facility] Comment on above: Performed By: #### L [id number] #### [facility] ([facility]) [address] [place] [address] Urea nitrogen [Mass/Vol] 36 mg/dL High 7-25 [facility] Comment on above: Performed By: #### L [id number] #### [facility] ([facility]) [address] [place] [address] UREA NITROGEN/CREATININE (MASS RATIO) IN SER/PLAS 20.6 Normal [facility] Comment on above: Performed By: #### L [id number] #### [facility] ([facility]) [address] [place] [address] CALCIUM, IONIZEDon CALCIUM IONIZED (MMOL/L) IN BLOOD 1.23 mmol/L Normal 1.15-1.33 [facility] Comment on above: Performed By: #### L [id number] #### [facility] ([facility]) [address] [place] [address] CBC WITH AUTO DIFFERENTIALon 10-04-2024 Basophils (Bld) [#/Vol] 0.04 10*3/uL Normal 0.00-0.20 [facility] Comment on above: Performed By: #### L [id number] #### [facility] ([facility]) [address] [place] [address] Basophils/100 WBC (Bld) 0.6 % Normal 0.0-1.0 [facility] Comment on above: Performed By: #### L [id number] #### [facility] ([facility]) [address] [place] [address] Eosinophils (Bld) [#/Vol] 0.17 10*3/uL Normal 0.00-0.50 [facility] Comment on above: Performed By: #### L [id number] #### [facility] ([facility]) [address] [place] [address] Eosinophils/100 WBC (Bld) 2.7 % Normal 0.0-6.0 [facility] Comment on above: Performed By: #### L [id number] #### [facility] ([facility]) [address] [address] Erythrocyte distribution width (RBC) [Ratio] 13.4 % Normal 11.5-15.0 [facility] Comment on above: Performed By: #### L [id number] #### [facility] ([facility]) [address] [place] [address] ERYTHROCYTE MEAN CORPUSCULAR HEMOGLOBIN CONCENTRATION (G/DL) BY AUTOMATED 31.9 g/dL Low 32.0-35.0 [facility] Comment on above: Performed By: #### L [id number] #### [facility] ([facility]) [address] [place] [address] Hematocrit (Bld) [Volume fraction] 31.3 % Low 36.0-45.0 [facility] Comment on above: Performed By: #### L [id number] #### [facility] ([facility]) [address] [place] [address] Hemoglobin (Bld) [Mass/Vol] 10.0 g/dL Low 12.0-15.0 [facility] Comment on above: Performed By: #### L [id number] #### [facility] ([facility]) [address] [place] [address] Immature granulocytes (Bld) [#/Vol] 0.02 10*3/uL Normal 0.00-0.20 [facility] Comment on above: Performed By: #### L [id number] #### [facility] ([facility]) [address] [place] [address] Immature granulocytes/100 WBC (Bld) 0.3 % Normal 0.0-1.0 [facility] Comment on above: Performed By: #### L [id number] #### [facility] ([facility]) [address] [place] [address] Lymphocytes (Bld) [#/Vol] 1.83 10*3/uL Normal 1.20-4.00 [facility] Comment on above: Performed By: #### L [id number] #### [facility] ([facility]) [address] [place] [address] Lymphocytes/100 WBC (Bld) 29.5 % Normal 20.0-45.0 [facility] Comment on above: Performed By: #### L [id number] #### [facility] ([facility]) [address] [place] [address] MCH (RBC) [Entitic mass] 30.2 pg Normal 27.0-33.0 [facility] Comment on above: Performed By: #### L [id number] #### [facility] ([facility]) [address] [place] [address] MCV (RBC) [Entitic vol] 94.6 fL Normal 82.0-98.0 [facility] Comment on above: Performed By: #### L [id number] #### [facility] ([facility]) [address] [place] [address] Monocytes (Bld) [#/Vol] 0.49 10*3/uL Normal 0.10-1.00 [facility] Comment on above: Performed By: #### L [id number] #### [facility] ([facility]) [address] [place] [address] Monocytes/100 WBC (Bld) 7.9 % Normal 5.0-12.0 [facility] Comment on above: Performed By: #### L [id number] #### [facility] ([facility]) [address] [place] [address] Neutrophils (Bld) [#/Vol] 3.66 10*3/uL Normal 1.60-7.60 [facility] Comment on above: Performed By: #### L [id number] #### [facility] ([facility]) [address] [place] [address] Neutrophils/100 WBC (Bld) 59.0 % Normal 40.0-72.0 [facility] Comment on above: Performed By: #### L [id number] #### [facility] ([facility]) [address] [place] [address] NRBC (PER 100 WBCS) BY AUTOMATED COUNT 0.0 % Normal 0 [facility] Comment on above: Performed By: #### L [id number] #### [facility] ([facility]) [address] [place] [address] PLATELETS (10*3/UL) IN BLOOD AUTOMATED COUNT 242 10*3/uL Normal 150-400 [facility] Comment on above: Performed By: #### L [id number] #### [facility] ([facility]) [address] [place] [address] RBC (Bld) [#/Vol] 3.31 10*6/uL Low 3.80-5.00 [facility] Comment on above: Performed By: #### L [id number] #### [facility] ([facility]) [address] [place] [address] WBC (Bld) [#/Vol] 6.21 10*3/uL Normal 4.00-10.60 [facility] Comment on above: Performed By: #### L [id number] #### [facility] ([facility]) [address] [place] [address] POCT GLUCOSE METER UNSOLICIT ED RESULTSon 10-04-2024 Glucose [Mass/Vol] 237 mg/dL High 70-105 [facility] Comment on above: Order Comment: Waive d Testing in the ED is performed under the ED CLIA certificate #[id number]. Result Comment: [email or web address] [email or web address] Critical Value Noted Performed By: #### L [id number] ####[facility] ([facility])[address] [address] Glucose [Mass/Vol] 213 mg/dL High 70-105 [facility] Comment on above: Order Comment: Waive d Testing in the ED is performed under the ED CLIA certificate #[id number]. Result Comment: [email or web address] [email or web address] Performed By: #### L [id number] #### [facility] ([facility]) [address] [place] [address] Glucose [Mass/Vol] 211 mg/dL High 70-105 [facility] Comment on above: Order Comment: Waive d Testing in the ED is performed under the ED CLIA certificate #[id number]. Result Comment: [email or web address] Performed By: #### L [id number] #### [facility] ([facility]) [address] [place] [address] Glucose [Mass/Vol] 160 mg/dL High 70-105 [facility] Comment on above: Order Comment: Waive d Testing in the ED is performed under the ED CLIA certificate #[id number]. Result Comment: [email or web address] Performed By: #### L [id number] #### [facility] ([facility]) [address] [place] [address] ALBUMINon 10-03-2024 Albumin [Mass/Vol] 2.5 g/dL Low 3.5-5.7 [facility] Comment on above: Performed By: #### L [id number] ####[facility] ([facility])[address] [place] [address] BASIC METABOLIC PANELon 09-22 Anion gap [Moles/Vol] 9 mmol/L Normal 7-20 [facility] Comment on above: Performed By: #### L [id number] ####[facility] ([facility])[address] [place] [address] Calcium [Mass/Vol] 6.6 mg/dL Low 8.6-10.3 [facility] Comment on above: Performed By: #### L [id number] ####[facility] ([facility])[address] [place] [address] Chloride [Moles/Vol] 110 mmol/L High 98-107 [facility] Comment on above: Performed By: #### L [id number] ####[facility] ([facility])[address] [place] [address] CO2 [Moles/Vol] 23 mmol/L Normal 21-31 [facility] Comment on above: Performed By: #### L [id number] ####[facility] ([facility])[address] [place] [address] Creatinine [Mass/Vol] 1.89 mg/dL High 0.60-1.20 [facility] Comment on above: Performed By: #### L [id number] ####[facility] ([facility])[address] [place] [address] GLOMERULAR FILTRATION RATE ML/MIN/1.73 SQ M.PREDICTED 32.6 mL/min/1.73m*2 Low >60.0 [facility] Comment on above: Result Comment: [facility]???s estimated glomerular filtration rate (eGFR) will [...] of individuals. Performed By: #### L [id number] ####[facility] ([facility])[address] [place] [address] Glucose [Mass/Vol] 164 mg/dL High 70-100 [facility] Comment on above: Performed By: #### L [id number] ####[facility] ([facility])[address] [place] [address] Potassium [Moles/Vol] 3.7 mmol/L Normal 3.5-5.1 [facility] Comment on above: Performed By: #### L [id number] ####[facility] ([facility])[address] [place] [address] Sodium [Moles/Vol] 138 mmol/L Normal 136-145 [facility] Comment on above: Performed By: #### L [id number] ####[facility] ([facility])[address] [place] [address] Urea nitrogen [Mass/Vol] 32 mg/dL High 7-25 [facility] Comment on above: Performed By: #### L [id number] ####[facility] ([facility])[address] [place] [address] UREA NITROGEN/CREATININE (MASS RATIO) IN SER/PLAS 16.9 Normal [facility] Comment on above: Performed By: #### L [id number] ####[facility] ([facility])[address] [place] [address] CBC WITH AUTO DIFFERENTIALon 10-03-2024 Basophils (Bld) [#/Vol] 0.04 10*3/uL Normal 0.00-0.20 [facility] Comment on above: Performed By: #### L [id number] ####[facility] ([facility])[address] [place] [address] Basophils/100 WBC (Bld) 0.5 % Normal 0.0-1.0 [facility] Comment on above: Performed By: #### L [id number] ####[facility] ([facility])[address] [place] [address] Eosinophils (Bld) [#/Vol] 0.09 10*3/uL Normal 0.00-0.50 [facility] Comment on above: Performed By: #### L [id number] ####[facility] ([facility])[address] [place] [address] Eosinophils/100 WBC (Bld) 1.2 % Normal 0.0-6.0 [facility] Comment on above: Performed By: #### L [id number] ####[facility] ([facility])[address] [place] [address] Erythrocyte distribution width (RBC) [Ratio] 13.5 % Normal 11.5-15.0 [facility] Comment on above: Performed By: #### L [id number] ####[facility] ([facility])[address] [place] [address] ERYTHROCYTE MEAN CORPUSCULAR HEMOGLOBIN CONCENTRATION (G/DL) BY AUTOMATED 32.7 g/dL Normal 32.0-35.0 [facility] Comment on above: Performed By: #### L [id number] ####[facility] ([facility])[address] [place] [address] Hematocrit (Bld) [Volume fraction] 26.6 % Low 36.0-45.0 [facility] Comment on above: Performed By: #### L [id number] ####[facility] ([facility])[address] [place] [address] Hemoglobin (Bld) [Mass/Vol] 8.7 g/dL Low 12.0-15.0 [facility] Comment on above: Performed By: #### L [id number] ####[facility] ([facility])[address] [place] [address] Immature granulocytes (Bld) [#/Vol] 0.03 10*3/uL Normal 0.00-0.20 [facility] Comment on above: Performed By: #### L [id number] ####[facility] ([facility])[address] [place] [address] Immature granulocytes/100 WBC (Bld) 0.4 % Normal 0.0-1.0 [facility] Comment on above: Performed By: #### L [id number] ####[facility] ([facility])[address] [place] [address] Lymphocytes (Bld) [#/Vol] 1.44 10*3/uL Normal 1.20-4.00 [facility] Comment on above: Performed By: #### L [id number] ####[facility] ([facility])[address] [place] [address] Lymphocytes/100 WBC (Bld) 19.6 % Low 20.0-45.0 [facility] Comment on above: Performed By: #### L [id number] ####[facility] ([facility])[address] [place] [address] MCH (RBC) [Entitic mass] 30.4 pg Normal 27.0-33.0 [facility] Comment on above: Performed By: #### L [id number] ####[facility] ([facility])[address] [place] [address] MCV (RBC) [Entitic vol] 93.0 fL Normal 82.0-98.0 [facility] Comment on above: Performed By: #### L [id number] ####[facility] ([facility])[address] [place] [address] Monocytes (Bld) [#/Vol] 0.49 10*3/uL Normal 0.10-1.00 [facility] Comment on above: Performed By: #### L [id number] ####[facility] ([facility])[address] [place] [address] Monocytes/100 WBC (Bld) 6.7 % Normal 5.0-12.0 [facility] Comment on above: Performed By: #### L [id number] ####[facility] ([facility])[address] [place] [address] Neutrophils (Bld) [#/Vol] 5.26 10*3/uL Normal 1.60-7.60 [facility] Comment on above: Performed By: #### L [id number] ####[facility] ([facility])[address] [place] [address] Neutrophils/100 WBC (Bld) 71.6 % Normal 40.0-72.0 [facility] Comment on above: Performed By: #### L [id number] ####[facility] ([facility])[address] [place] [address] NRBC (PER 100 WBCS) BY AUTOMATED COUNT 0.0 % Normal 0 [facility] Comment on above: Performed By: #### L [id number] ####[facility] ([facility])[address] [place] [address] PLATELETS (10*3/UL) IN BLOOD AUTOMATED COUNT 224 10*3/uL Normal 150-400 [facility] Comment on above: Performed By: #### L [id number] ####[facility] ([facility])[address] [place] [address] RBC (Bld) [#/Vol] 2.86 10*6/uL Low 3.80-5.00 [facility] Comment on above: Performed By: #### L [id number] ####[facility] ([facility])[address] [place] [address] WBC (Bld) [#/Vol] 7.35 10*3/uL Normal 4.00-10.60 [facility] Comment on above: Performed By: #### L [id number] ####[facility] ([facility])[address] [place] [address] POCT GLUCOSE METER UNSOLICIT ED RESULTSon 10-03-2024 Glucose [Mass/Vol] 168 mg/dL High 70-105 [facility] Comment on above: Order Comment: Waive d Testing in the ED is performed under the ED CLIA certificate #[id number]. Result Comment: [email or web address] [email or web address] Critical Value Noted Performed By: #### L [id number] #### [facility] ([facility]) [address] [place] [address] Glucose [Mass/Vol] 96 mg/dL Normal 70-105 [facility] Comment on above: Order Comment: Waive d Testing in the ED is performed under the ED CLIA certificate #[id number]. Result Comment: [email or web address] [email or web address] Performed By: #### L [id number] ####[facility] ([facility])[address] [place] [address] Glucose [Mass/Vol] 171 mg/dL High 70-105 [facility] Comment on above: Order Comment: Waive d Testing in the ED is performed under the ED CLIA certificate #[id number]. Result Comment: [email or web address] [email or web address] Performed By: #### L [id number] ####[facility] ([facility])[address] [place] [address] Glucose [Mass/Vol] 105 mg/dL Normal 70-105 [facility] Comment on above: Order Comment: Waive d Testing in the ED is performed under the ED CLIA certificate #[id number]. Result Comment: [email or web address] [email or web address] Performed By: #### L [id number] ####[facility] ([facility])[address] [place] [address] BASIC METABOLIC PANELon 05- Anion gap [Moles/Vol] 13 mmol/L Normal 7-20 [facility] Comment on above: Performed By: #### L [id number] #### [facility] ([facility]) [address] [place] [address] Calcium [Mass/Vol] 7.3 mg/dL Low 8.6-10.3 [facility] Comment on above: Performed By: #### L [id number] #### [facility] ([facility]) [address] [place] [address] Chloride [Moles/Vol] 105 mmol/L Normal 98-107 [facility] Comment on above: Performed By: #### L [id number] #### [facility] ([facility]) [address] [place] [address] CO2 [Moles/Vol] 20 mmol/L Low 21-31 [facility] Comment on above: Performed By: #### L [id number] #### [facility] ([facility]) [address] [place] [address] Creatinine [Mass/Vol] 3.00 mg/dL High 0.60-1.20 [facility] Comment on above: Performed By: #### L [id number] #### [facility] ([facility]) [address] [place] [address] GLOMERULAR FILTRATION RATE ML/MIN/1.73 SQ M.PREDICTED 18.7 mL/min/1.73m*2 Low >60.0 [facility] Comment on above: Result Comment: [facility]???s estimated glomerular filtration rate (eGFR) will [...] group of individuals. Performed By: #### L [id number] #### [facility] ([facility]) [address] [place] [address] Glucose [Mass/Vol] 239 mg/dL High 70-100 [facility] Comment on above: Performed By: #### L [id number] #### [facility] ([facility]) [address] [place] [address] Potassium [Moles/Vol] 4.2 mmol/L Normal 3.5-5.1 [facility] Comment on above: Performed By: #### L [id number] #### [facility] ([facility]) [address] [place] [address] Sodium [Moles/Vol] 134 mmol/L Low 136-145 [facility] Comment on above: Performed By: #### L [id number] #### [facility] ([facility]) [address] [place] [place] [address] Urea nitrogen [Mass/Vol] 29 mg/dL High 7-25 [facility] Comment on above: Performed By: #### L [id number] #### [facility] ([facility]) [address] [place] [address] UREA NITROGEN/CREATININE (MASS RATIO) IN SER/PLAS 9.7 Normal [facility] Comment on above: Performed By: #### L [id number] #### [facility] ([facility]) [address] [place] [address] CKon 10-02-2024 CREATINE KINASE (U/L) IN SER/PLAS 56.0 U/L Normal 30.0-223.0 [facility] Comment on above: Performed By: #### L [id number] #### [facility] ([facility]) [address] [place] [address] CONSULTon 10-02-2024 CONSULT ----- ----- Attestation signed [...] Faculty, Division of Nephrology, Department of Medicine, [facility]. ----- Nephrology [...] edema, morbid obesity who was taken to [facility] ED as she was noted to [...] were noted to be elevated 180-->166 pg/mL. [facility] Cardiology was consulted from [place] ED and she is transferred here for [...] edema. Neurolog (more content not included)... Normal [facility] CREATININE, URINE, RANDOMon 10-02-2024 Creatinine (U) [Mass/Vol] 200.0 mg/dL Normal 26-299 [facility] Comment on above: Performed By: #### L [id number] #### [facility] ([facility]) [address] [place] [address] MAGNESIUMon 10-02-2024 Magnesium [Mass/Vol] 2.2 mg/dL Normal 1.9-2.7 [facility] Comment on above: Performed By: #### L [id number] #### [facility] ([facility]) [address] [place] [address] POCT GLUCOSE METER UNSOLICIT ED RESULTSon 10-02-2024 Glucose [Mass/Vol] 314 mg/dL High 70-105 [facility] Comment on above: Order Comment: Waive d Testing in the ED is performed under the ED CLIA certificate #[id number]. Result Comment: [email or web address] [email or web address] Performed By: #### L [id number] #### [facility] ([facility]) [address] [place] [address] Glucose [Mass/Vol] 413 mg/dL High 70-105 [facility] Comment on above: Order Comment: Waive d Testing in the ED is performed under the ED CLIA certificate #[id number]. Result Comment: [email or web address] Performed By: #### L [id number] #### [facility] ([facility]) [address] [place] [address] Glucose [Mass/Vol] 221 mg/dL High 70-105 [facility] Comment on above: Order Comment: Waive d Testing in the ED is performed under the ED CLIA certificate #[id number]. Result Comment: [email or web address] [email or web address] Performed By: #### L [id number] ####[facility] ([facility])[address] [place] [address] Glucose [Mass/Vol] 225 mg/dL High 70-105 [facility] Comment on above: Order Comment: Waive d Testing in the ED is performed under the ED CLIA certificate #[id number]. Result Comment: [email or web address] [email or web address] Performed By: #### L [id number] ####[facility] ([facility])[address] [place] [address] Glucose [Mass/Vol] 249 mg/dL High 70-105 [facility] Comment on above: Order Comment: Waive d Testing in the ED is performed under the ED CLIA certificate #[id number]. Result Comment: [email or web address] [email or web address] Performed By: #### L [id number] #### [facility] ([facility]) [address] [place] [address] Glucose [Mass/Vol] 213 mg/dL High 70-105 [facility] Comment on above: Order Comment: Waive d Testing in the ED is performed under the ED CLIA certificate #[id number]. Result Comment: [email or web address] [email or web address] Performed By: #### L [id number] #### [facility] ([facility]) [address] [place] [address] PROTEIN, URINE, RANDOMon Protein (U) [Mass/Vol] 61.3 mg/dL Normal [facility] Comment on above: Result Comment: Ther e are no established reference values for random urine specimens. Performed By: #### L [id number] ####[facility] ([facility])[address] [place] [address] SODIUM, URINE, RANDOMon 09-22 Sodium (U) [Moles/Vol] 28 mmol/L Normal [facility] Comment on above: Performed By: #### L [id number] #### [facility] ([facility]) [address] [place] [address] URINALYSIS WITH MICROSCOPICo n 10-02-2024 BILIRUBIN, TOTAL PRESENCE IN URINE Negative Normal Negative [facility] Comment on above: Performed By: #### L [id number] #### [facility] ([facility]) [address] [place] [address] CASTS IN URINE Present Abnormal None Seen [facility] Comment on above: Performed By: #### L [id number] #### [facility] ([facility]) [address] [place] [address] Clarity (U) Clear Normal Clear [facility] Comment on above: Performed By: #### L [id number] #### [facility] ([facility]) [address] [place] [address] Color (U) Yellow Normal Colorless, Yellow, Light-Yello w [facility] Comment on above: Performed By: #### L [id number] #### [facility] ([facility]) [address] [place] [address] Glucose (U) [Mass/Vol] mg/dL Abnormal Normal [facility] Comment on above: Performed By: #### L [id number] #### [facility] ([facility]) [address] [place] [address] HEMOGLOBIN PRESENCE IN URINE Negative Normal Negative [facility] Comment on above: Performed By: #### L [id number] #### [facility] ([facility]) [address] [place] [address] HYALINE CASTS GRADED/LPF IN URINE SEDIMENT BY MICROSCOPY 3-5 Abnormal 0-2 [facility] Comment on above: Performed By: #### L [id number] #### [facility] ([facility]) [address] [place] [address] Ketones Ql (U) Negative Normal Negative [facility] Comment on above: Performed By: #### L [id number] #### [facility] ([facility]) [address] [place] [address] LEUKOCYTE ESTERASE PRESENCE IN URINE BY TEST STRIP Moderate Abnormal Negative [facility] Comment on above: Performed By: #### L [id number] #### [facility] ([facility]) [address] [place] [address] NITRITE PRESENCE IN URINE Negative Normal Negative [facility] Comment on above: Performed By: #### L [id number] #### [facility] ([facility]) [address] [place] [address] pH (U) 5.0 [pH] Normal 5.0-8.0 [facility] Comment on above: Performed By: #### L [id number] #### [facility] ([facility]) [address] [place] [address] Protein (U) [Mass/Vol] 30 mg/dL Abnormal Negative [facility] Comment on above: Performed By: #### L [id number] #### [facility] ([facility]) [address] [place] [address] RBC (#/HPF) IN URINE SEDIMENT 0-2 Normal None Seen, 0-2 [facility] Comment on above: Performed By: #### L [id number] #### [facility] ([facility]) [address] [place] [address] Specific gravity (U) [Rel density] 1.020 Normal 1.010-1.030 [facility] Comment on above: Performed By: #### L [id number] #### [facility] ([facility]) [address] [place] [address] SQUAMOUS EPITHELIAL CELLS (#/LPF) IN URINE SEDIMENT Occasional Normal None Seen, Occasional, Few [facility] Comment on above: Performed By: #### L [id number] #### [facility] ([facility]) [address] [place] [address] UROBILINOGEN (MG/DL) IN URINE Normal Normal Normal [facility] Comment on above: Performed By: #### L [id number] #### [facility] ([facility]) [address] [place] [address] WBC (LEUKOCYTE) (#/HPF) IN URINE SEDIMENT 11-20 Abnormal None Seen, 0-2 [facility] Comment on above: Performed By: #### L [id number] #### [facility] ([facility]) [address] [place] [address] B-TYPE NATRIURETIC PEPTIDEon 10-01-2024 Natriuretic peptide B (Bld) [Mass/Vol] 19 pg/mL Normal 0-100 [facility] Comment on above: Performed By: #### L [id number] ####[facility] ([facility])[address] [place] [address] CBC WITH AUTO DIFFERENTIALon 10-01-2024 Basophils (Bld) [#/Vol] 0.07 10*3/uL Normal 0.00-0.20 [facility] Comment on above: Performed By: #### L [id number] ####[facility] ([facility])[address] [place] [address] Basophils/100 WBC (Bld) 0.9 % Normal 0.0-1.0 [facility] Comment on above: Performed By: #### L [id number] ####[facility] ([facility])[address] [place] [address] Eosinophils (Bld) [#/Vol] 0.12 10*3/uL Normal 0.00-0.50 [facility] Comment on above: Performed By: #### L [id number] ####[facility] ([facility])[address] [place] [address] Eosinophils/100 WBC (Bld) 1.5 % Normal 0.0-6.0 [facility] Comment on above: Performed By: #### L [id number] ####[facility] ([facility])[address] [place] [address] Erythrocyte distribution width (RBC) [Ratio] 14.1 % Normal 11.5-15.0 [facility] Comment on above: Performed By: #### L [id number] ####[facility] ([facility])[address] [place] [address] ERYTHROCYTE MEAN CORPUSCULAR HEMOGLOBIN CONCENTRATION (G/DL) BY AUTOMATED 33.6 g/dL Normal 32.0-35.0 [facility] Comment on above: Performed By: #### L [id number] ####[facility] ([facility])[address] [place] [address] Hematocrit (Bld) [Volume fraction] 34.8 % Low 36.0-45.0 [facility] Comment on above: Performed By: #### L [id number] ####[facility] ([facility])[address] [place] [address] Hemoglobin (Bld) [Mass/Vol] 11.7 g/dL Low 12.0-15.0 [facility] Comment on above: Performed By: #### L [id number] ####[facility] ([facility])[address] [place] [address] Immature granulocytes (Bld) [#/Vol] 0.04 10*3/uL Normal 0.00-0.20 [facility] Comment on above: Performed By: #### L [id number] ####[facility] ([facility])[address] [place] [address] Immature granulocytes/100 WBC (Bld) 0.5 % Normal 0.0-1.0 [facility] Comment on above: Performed By: #### L [id number] ####[facility] ([facility])[address] [place] [address] Lymphocytes (Bld) [#/Vol] 1.88 10*3/uL Normal 1.20-4.00 [facility] Comment on above: Performed By: #### L [id number] ####[facility] ([facility])[address] [place] [address] Lymphocytes/100 WBC (Bld) 23.2 % Normal 20.0-45.0 [facility] Comment on above: Performed By: #### L [id number] ####[facility] ([facility])[address] [place] [address] MCH (RBC) [Entitic mass] 30.5 pg Normal 27.0-33.0 [facility] Comment on above: Performed By: #### L [id number] ####[facility] ([facility])[address] [place] [address] MCV (RBC) [Entitic vol] 90.9 fL Normal 82.0-98.0 [facility] Comment on above: Performed By: #### L [id number] ####[facility] ([facility])[address] [place] [address] Monocytes (Bld) [#/Vol] 0.57 10*3/uL Normal 0.10-1.00 [facility] Comment on above: Performed By: #### L [id number] ####[facility] ([facility])[address] [place] [address] Monocytes/100 WBC (Bld) 7.0 % Normal 5.0-12.0 [facility] Comment on above: Performed By: #### L [id number] ####[facility] ([facility])[address] [place] [address] Neutrophils (Bld) [#/Vol] 5.41 10*3/uL Normal 1.60-7.60 [facility] Comment on above: Performed By: #### L [id number] ####[facility] ([facility])[address] [place] [address] Neutrophils/100 WBC (Bld) 66.9 % Normal 40.0-72.0 [facility] Comment on above: Performed By: #### L [id number] ####[facility] ([facility])[address] [place] [address] NRBC (PER 100 WBCS) BY AUTOMATED COUNT 0.0 % Normal 0 [facility] Comment on above: Performed By: #### L [id number] ####[facility] ([facility])[address] [place] [address] PLATELETS (10*3/UL) IN BLOOD AUTOMATED COUNT 325 10*3/uL Normal 150-400 [facility] Comment on above: Performed By: #### L [id number] ####[facility] ([facility])[address] [place] [address] RBC (Bld) [#/Vol] 3.83 10*6/uL Normal 3.80-5.00 [facility] Comment on above: Performed By: #### L [id number] ####[facility] ([facility])[address] [place] [address] WBC (Bld) [#/Vol] 8.09 10*3/uL Normal 4.00-10.60 [facility] Comment on above: Performed By: #### L [id number] ####[facility] ([facility])[address] [place] [address] COMPREHENSIVE METABOLIC PANE Tapan 10-01-2024 Albumin [Mass/Vol] 3.4 g/dL Low 3.5-5.7 [facility] Comment on above: Performed By: #### L [id number] ####[facility] ([facility])[address] [place] [address] ALP [Catalytic activity/Vol] 104 U/L Normal 34-104 [facility] Comment on above: Performed By: #### L [id number] ####[facility] ([facility])[address] [place] [address] ALT [Catalytic activity/Vol] 11 U/L Normal 7-52 [facility] Comment on above: Performed By: #### L [id number] ####[facility] ([facility])[address] [place] [address] Anion gap [Moles/Vol] 14 mmol/L Normal 7-20 [facility] Comment on above: Performed By: #### L [id number] ####[facility] ([facility])[address] [place] [address] AST [Catalytic activity/Vol] 9 U/L Low 13-39 [facility] Comment on above: Performed By: #### L [id number] ####[facility] ([facility])[address] [place] [address] Bilirubin [Mass/Vol] 0.4 mg/dL Normal 0.3-1.0 [facility] Comment on above: Performed By: #### L [id number] ####[facility] ([facility])[address] [place] [address] Calcium [Mass/Vol] 7.6 mg/dL Low 8.6-10.3 [facility] Comment on above: Performed By: #### L [id number] ####[facility] ([facility])[address] [place] [address] Chloride [Moles/Vol] 99 mmol/L Normal 98-107 [facility] Comment on above: Performed By: #### L [id number] ####[facility] ([facility])[address] [place] [address] CO2 [Moles/Vol] 22 mmol/L Normal 21-31 [facility] Comment on above: Performed By: #### L [id number] ####[facility] ([facility])[address] [place] [address] Creatinine [Mass/Vol] 1.99 mg/dL High 0.60-1.20 [facility] Comment on above: Performed By: #### L [id number] ####[facility] ([facility])[address] [place] [address] GLOMERULAR FILTRATION RATE ML/MIN/1.73 SQ M.PREDICTED 30.6 mL/min/1.73m*2 Low >60.0 [facility] Comment on above: Result Comment: [facility]???s estimated glomerular filtration rate (eGFR) will [...] of individuals. Performed By: #### L [id number] ####[facility] ([facility])[address] [place] [address] Glucose [Mass/Vol] 531 mg/dL Critically high 70-100 [facility] Comment on above: Performed By: #### L [id number] ####[facility] ([facility])[address] [place] [address] Potassium [Moles/Vol] 4.1 mmol/L Normal 3.5-5.1 [facility] Comment on above: Performed By: #### L [id number] ####[facility] ([facility])[address] [place] [address] Protein [Mass/Vol] 6.1 g/dL Normal 6.0-8.3 [facility] Comment on above: Performed By: #### L [id number] ####[facility] ([facility])[address] [facility] [place] [address] Sodium [Moles/Vol] 131 mmol/L Low 136-145 [facility] Comment on above: Performed By: #### L [id number] ####[facility] ([facility])[address] [place] [address] Urea nitrogen [Mass/Vol] 26 mg/dL High 7-25 [facility] Comment on above: Performed By: #### L [id number] ####[facility] ([facility])[address] [place] [address] UREA NITROGEN/CREATININE (MASS RATIO) IN SER/PLAS 13.1 Normal [facility] Comment on above: Performed By: #### L [id number] ####[facility] ([facility])[address] [place] [address] CONSULTon 10-01-2024 CONSULT [facility] Vascular/Endovascular Surgery Bottom Stop Attacher Complaint Left foot wound History and Present [...] Physician's Revisions: None Juan C Crabtree MD, [facility] ----- Cardiology Consult Note Reason for Consult: Elevated troponin HPI: Addie Jean Baptiste is a 49 y.o. female with past history remarkable for primary hypertension, mixed hyperlipidemia, type 2 diabetes mellitus, sick sinus syndrome s/p PPM placement around 2011, she had a generator replacement few years later for a MRI compatible generator, she reported that the device was upgraded to ICD later in [facility] but we could not find record of that. She also has seizure disorder. She presented to [facility] as transfer from [facility] where she initially presented after a seizure episode associated with vomiting.patient reports 2 seizures episodes prior to this the last couple days. Patient reports that she has been having frequent seizure episodes and she was going to [facility] for further evaluation. Her initial labs were [...] palpitations or legs edema. Upon presentation to [facility], she was afebrile and hemodynamically stable, labs [...] medical history of Anxiety, Bipolar 1 disorder ([facility]), Cardiac arrest ([facility]) (2019), Chronic back pain, Chronic kidney disease, Coronary artery disease, Depression, Diabetes mellitus ([facility]), Hypertension, Insomnia, Pacemaker, Schizoaffective disorder ([facility]), Seizures ([facility]), and Stroke ([facility]). Surgical History She has a past surgical [...] daily urea (more content not included)... Normal [facility] HEMOGLOBIN A1Con 10-01-2024 Glucose [Mass/Vol] 260 mg/dL Normal [facility] Comment on above: Performed By: #### L [id number] #### [facility] ([facility]) [address] [place] [address] HbA1c (Bld) [Mass fraction] 10.7 % High 4.0-6.0 [facility] Comment on above: Performed By: #### L [id number] #### [facility] ([facility]) [address] [place] [address] HIGH SENSITIVITY TROPONIN Io n 10-01-2024 HS TROPONIN I (NG/L) 72 ng/L Critically high <15 [facility] Comment on above: Performed By: #### L [id number] #### [facility] ([facility]) [address] [place] [address] LACTIC ACID WITH 4 HOUR REFL EXon 10-01-2024 LACTATE (MMOL/L) IN SER/PLAS 3.1 mmol/L Critically high 0.5-2.2 [facility] Comment on above: Result Comment: Prev ious result verified on 10/01/2024 1150 on specimen/case [id number] called with component Lactate blood venous for procedure Lactic acid, venous, whole blood with reflex with value 3.4 mmol/L. Performed By: #### L [id number] #### [facility] ([facility]) [address] [place] [address] LACTATE (MMOL/L) IN SER/PLAS 3.4 mmol/L Critically high 0.5-2.2 [facility] Comment on above: Performed By: #### L [id number] ####[facility] ([facility])[address] [place] [address] LIPID PANELon 10-01-2024 CHOL/HDL 4.5 mg/dL Normal [facility] Comment on above: Performed By: #### L [id number] ####[facility] ([facility])[address] [place] [address] Cholesterol [Mass/Vol] 219 mg/dL High 120-200 [facility] Comment on above: Performed By: #### L [id number] ####[facility] ([facility])[address] [facility] [address] Magnesium [Mass/Vol] 207 mg/dL High <150 [facility] Comment on above: Result Comment: TRIG LYCERIDE REFERENCE RANGE: 20 YEARS AND OLDER CARDIOVASCULAR RISK LESS THAN 150 mg/dL LOW RISK 150 TO 199 mg/dL BORDERLINE RISK 200 mg/dL AND GREATER HIGH RISK Performed By: #### L [id number] ####[facility] ([facility])[address] [place] [address] Magnesium [Mass/Vol] 129 mg/dL Normal 0-160 [facility] Comment on above: Performed By: #### L [id number] ####[facility] ([facility])[address] [place] [address] Magnesium [Mass/Vol] 49 mg/dL Normal 23-92 [facility] Comment on above: Performed By: #### L [id number] ####[facility] ([facility])[address] [place] [address] NON HDL CHOL. (LDL+VLDL) 170 Normal [facility] Comment on above: Performed By: #### L [id number] ####[facility] ([facility])[address] [place] [address] TOTAL VLDL-C 41 mg/dL High 0-40 [facility] Comment on above: Performed By: #### L [id number] ####[facility] ([facility])[address] [facility] [place] [address] MAGNESIUMon 10-01-2024 Magnesium [Mass/Vol] 1.5 mg/dL Low 1.9-2.7 [facility] Comment on above: Performed By: #### L [id number] ####[facility] ([facility])[address] [place] [address] POCT GLUCOSE METER UNSOLICIT ED RESULTSon 10-01-2024 Glucose [Mass/Vol] 134 mg/dL High 70-105 [facility] Comment on above: Order Comment: Waive d Testing in the ED is performed under the ED CLIA certificate #[id number]. Result Comment: amcn [email or web address] Performed By: #### L [id number] ####[facility] ([facility])[address] [facility] [place] [address] Glucose [Mass/Vol] 294 mg/dL High 70-105 [facility] Comment on above: Order Comment: Waive d Testing in the ED is performed under the ED CLIA certificate #[id number]. Result Comment: tsmi di2 Performed By: #### L [id number] #### [facility] ([facility]) [address] [place] [address] Glucose [Mass/Vol] 406 mg/dL High 70-105 [facility] Comment on above: Order Comment: Waive d Testing in the ED is performed under the ED CLIA certificate #[id number]. Result Comment: tsmi di2 Performed By: #### L [id number] #### [facility] ([facility]) [address] [place] [address] TSH3 REFLEX TO FT4on 025 THYROTROPIN (MIU/L) IN SER/PLAS BY DETECTION LIMIT <= 0.05 MIU/L 3.71 mIU/L Normal 0.34-5.60 [facility] Comment on above: Performed By: #### L [id number] #### [facility] ([facility]) [address] [place] [address] XR LUMBAR SPINE 2-3 VIEWS (S TANDARD)on 09-23-2024 XR LUMBAR SPINE 2-3 VIEWS (STANDARD) Normal [facility] Comment on above: Order Comment: Stand ing AND AP LateralInjury/Trauma or Illness?:Illness/OtherHow long have you had these symptoms (acute/chronic)?:UnknownReason for exam?:Lumbar painHistory of cancer?:uSurgeries, chemotherapy, or radiation?:pacemakerType of Exam?:UnknownAdditional signs and symptoms?:none BASIC METABOLIC PANELon Anion gap [Moles/Vol] 20 mmol/L Normal 10-20 [facility] Comment on above: Order Comment: [facility] has implemented the eGFR calculation approach that does not have a coefficient for race that conforms to the NKF-ASN Task Force Recommendations. Performed By: #### [id number] ####[facility] [address] [place], [place] [address] Abbi Choudhary M.D. [id number] Calcium [Mass/Vol] 8.9 mg/dL Normal 8.4-10.2 [facility] Comment on above: Order Comment: [facility] has implemented the eGFR calculation approach that does not have a coefficient for race that conforms to the NKF-ASN Task Force Recommendations. Performed By: #### [id number] ####[facility] [address] [place], [place] [address] Abbi Choudhary M.D. [id number] Chloride [Moles/Vol] 97 mmol/L Low 98-108 [facility] Comment on above: Order Comment: [facility] has implemented the eGFR calculation approach that does not have a coefficient for race that conforms to the NKF-ASN Task Force Recommendations. Performed By: #### [id number] ####[facility] [address] [place], [place] [address] Abbi Choudhary M.D. [id number] Creatinine [Mass/Vol] 1.71 mg/dL High 0.40-1.10 [facility] Comment on above: Order Comment: [facility] has implemented the eGFR calculation approach that does not have a coefficient for race that conforms to the NKF-ASN Task Force Recommendations. Performed By: #### [id number] ####[facility] [address] [place], [place] [address] Abbi Choudhary M.D. [id number] EGFR 37 mL/min/1.73 m2 Low >=60 [facility] Comment on above: Order Comment: [facility] has implemented the eGFR calculation approach that does not have a coefficient for race that conforms to the NKF-ASN Task Force Recommendations. Result Comment: Lorie mated GFR was calculated using the 2020 CKD-EPI creatinine equation. Performed By: #### [id number] ####[facility] [address] [place], [place] [address] Abbi Choudhary M.D. [id number] Glucose [Mass/Vol] 468 mg/dL Off scale high 65-99 [facility] Comment on above: Order Comment: [facility] has implemented the eGFR calculation approach that does not have a coefficient for race that conforms to the NKF-ASN Task Force Recommendations. Performed By: #### [id number] ####[facility] [address] [place], [place] [address] Abbi Choudhary M.D. [id number] HCO3 (Bld) [Moles/Vol] 17 mmol/L Low 21-32 [facility] Comment on above: Order Comment: [facility] has implemented the eGFR calculation approach that does not have a coefficient for race that conforms to the NKF-ASN Task Force Recommendations. Performed By: #### [id number] ####[facility] [address] [place], [place] [address] Abbi Choudhary M.D. [id number] Potassium [Moles/Vol] 4.0 mmol/L Normal 3.5-5.1 [facility] Comment on above: Order Comment: [facility] has implemented the eGFR calculation approach that does not have a coefficient for race that conforms to the NKF-ASN Task Force Recommendations. Performed By: #### [id number] ####[facility] [address] [place], [place] [address] Abbi Choudhary M.D. [id number] Sodium [Moles/Vol] 130 mmol/L Low 135-145 [facility] Comment on above: Order Comment: [facility] has implemented the eGFR calculation approach that does not have a coefficient for race that conforms to the NKF-ASN Task Force Recommendations. Performed By: #### 4 [id number] ####[facility] [address] [address] Abbi Choudhary M.D. [id number] Urea nitrogen [Mass/Vol] 30 mg/dL High 8-25 [facility] Comment on above: Order Comment: [facility] has implemented the eGFR calculation approach that does not have a coefficient for race that conforms to the NKF-ASN Task Force Recommendations. Performed By: #### 4 [id number] ####[facility] [address] [place] [address] Abbi Choudhary M.D. [id number] Urea nitrogen/Creatinine [Mass ratio] 17.5 mg/mg Normal 10.0-20.0 [facility] Comment on above: Order Comment: [facility] has implemented the eGFR calculation approach that does not have a coefficient for race that conforms to the NKF-ASN Task Force Recommendations. Performed By: #### 4 [id number] ####[facility] [address] [place], [place] [address] Abbi Choudhary M.D. [id number] CBC WITH AUTO DIFFERENTIALon 09-22-2024 AUTO NRBC 0.0 % Normal [facility] Comment on above: Performed By: #### L [id number] ####[facility] [address] [place], [place] [address] Abbi Choudhary M.D. [id number] AUTO NRBC ABS COUNT 0.00 K/mcL Normal 0.00-0.00 [facility] Comment on above: Performed By: #### L [id number] ####[facility] [address] [place], [place] [address] Abbi Choudhary M.D. [id number] BASOPHILS ABSOLUTE COUNT 0.05 K/mcL Normal 0.00-0.30 [facility] Comment on above: Performed By: #### L [id number] ####[facility] [address] [place], [place] [address] Abbi Choudhary M.D. [id number] Basophils/100 WBC (Bld) 0.6 % Normal [facility] Comment on above: Performed By: #### L [id number] ####[facility] [address] [address] Abbi Choudhary M.D. [id number] Eosinophils (Bld) [#/Vol] 0.08 10*3/uL Normal 0.00-0.50 [facility] Comment on above: Performed By: #### L [id number] ####[facility] [address] [address] Abbi Choudhary M.D. [id number] Eosinophils/100 WBC (Bld) 0.9 % Normal [facility] Comment on above: Performed By: #### L [id number] ####[facility] [address] [address] Abbi Choudhary M.D. [id number] Erythrocyte distribution width (RBC) [Ratio] 13.3 % Normal 11.6-14.8 [facility] Comment on above: Performed By: #### L [id number] ####[facility] [address] [address] Abbi Choudhary M.D. [id number] Hematocrit (Bld) [Volume fraction] 35.3 % Low 36.0-46.0 [facility] Comment on above: Performed By: #### L [id number] ####[facility] [address] [address] Abbi Choudhary M.D. [id number] Hemoglobin (Bld) [Mass/Vol] 12.1 g/dL Normal 12.0-16.0 [facility] Comment on above: Performed By: #### L [id number] ####[facility] [address] [place], [place] [address] Abbi Choudhary M.D. [id number] IG ABSOLUTE 0.04 K/mcL Normal 0.00-0.30 [facility] Comment on above: Performed By: #### L [id number] ####[facility] [address] [address] Abbi Choudhary M.D. [id number] IG PERCENT 0.40 % Normal [facility] Comment on above: Result Comment: The IG parameter is the percentage of metamyelocytes, myelocytes and promyelocytes. An immature granulocyte count (IG) of 1% or more suggests the possibility of infection, an IG count of 3% is very likely related to an infection. Performed By: #### L [id number] ####[facility] [address] [address] Abbi Choudhary M.D. [id number] Lymphocytes (Bld) [#/Vol] 1.49 10*3/uL Normal 0.90-4.00 [facility] Comment on above: Performed By: #### L [id number] ####[facility] [address] [address] Abbi Choudhary M.D. [id number] Lymphocytes/100 WBC (Bld) 16.7 % Normal [facility] Comment on above: Performed By: #### L [id number] ####[facility] [address] [address] Abbi Choudhary M.D. [id number] MCH (RBC) [Entitic mass] 30.5 pg Normal 26.0-34.0 [facility] Comment on above: Performed By: #### L [id number] ####[facility] [address] [address] Abbi Choudhary M.D. [id number] MCV (RBC) [Entitic vol] 88.9 fL Normal 80.0-100.0 [facility] Comment on above: Performed By: #### L [id number] ####[facility] [address] [place] [address] Abbi Choudhary M.D. [id number] MEAN CORPUSCULAR HEMOGLOBIN CONC 34.3 g/dL Normal 31.0-37.0 [facility] Comment on above: Performed By: #### L [id number] ####[facility] [address] [place], [place] [address] Abbi Choudhary M.D. [id number] Monocytes (Bld) [#/Vol] 0.41 10*3/uL Normal 0.30-0.90 [facility] Comment on above: Performed By: #### L [id number] ####[facility] [address] [place], [place] [address] Abbi Choudhary M.D. [id number] Monocytes/100 WBC (Bld) 4.6 % Normal [facility] Comment on above: Performed By: #### L [id number] ####[facility] [address] [place] [address] Abbi Choudhary M.D. [id number] NEUTROPHILS ABSOLUTE COUNT 6.83 K/mcL Normal 1.70-7.00 [facility] Comment on above: Performed By: #### L [id number] ####[facility] [address] [place] [address] Abbi Choudhary M.D. [id number] Neutrophils/100 WBC (Bld) 76.8 % Normal [facility] Comment on above: Performed By: #### L [id number] ####[facility] [address] [place] [address] Abbi Choudhary M.D. [id number] Platelet mean volume (Bld) [Entitic vol] 9.7 fL Normal 9.4-12.4 [facility] Comment on above: Performed By: #### L [id number] ####[facility] [address] [place], [place] [address] Abbi Choudhary M.D. [id number] Platelets (Bld) [#/Vol] 283 10*3/uL Normal 150-400 [facility] Comment on above: Performed By: #### L [id number] ####[facility] [address] [place] [address] Abbi Choudhary M.D. [id number] RBC (Bld) [#/Vol] 3.97 10*6/uL Low 4.00-5.20 [facility] Comment on above: Performed By: #### L [id number] ####[facility] [address] [place] [address] Abbi Choudhary M.D. [id number] WBC (Bld) [#/Vol] 8.90 10*3/uL Normal 4.50-11.00 [facility] Comment on above: Performed By: #### L [id number] ####[facility] [address] [address] Abbi Choudhary M.D. [id number] DRUGS OF ABUSE SCREEN, URINE on 09-22-2024 AMPHETAMINE SCREEN, URINE Not detected Normal None Detected [facility] Comment on above: Order Comment: Scree n results should be used for treatment purposes only. Result Comment: Urin e Amphetamine Cutoff: < 1000 ng/mL = None Detected Performed By: #### 4 [id number] ####[facility] [address] [address] Abbi Choudhary M.D. [id number] BARBITURATE SCREEN URINE Not detected Normal None Detected [facility] Comment on above: Order Comment: Scree n results should be used for treatment purposes only. Result Comment: Urin e Barbiturates Cutoff: < 200 ng/mL = None Detected Performed By: #### 4 [id number] ####[facility] [address] [address] Abbi Choudhary M.D. [id number] BENZODIAZEPINE SCREEN, URINE Not detected Normal None Detected [facility] Comment on above: Order Comment: Scree n results should be used for treatment purposes only. Result Comment: Urin e Benzodiazepine Cutoff: < 200 ng/mL = None Detected Performed By: #### 4 [id number] ####[facility] [address] [address] Abbi Choudhary M.D. [id number] BUPRENORPHINE, URINE Not detected Normal None Detected [facility] Comment on above: Order Comment: Scree n results should be used for treatment purposes only. Result Comment: Urin e Buprenorphine Cutoff: < 5 ng/mL = None Detected Performed By: #### 4 [id number] ####[facility] [address] [address] Abbi Choudhary M.D. [id number] CANNABINOID SCREEN URINE Not detected Normal None Detected [facility] Comment on above: Order Comment: Scree n results should be used for treatment purposes only. Result Comment: Urin e Cannabinoids Cutoff: < 50 ng/mL = None Detected Performed By: #### 4 [id number] ####[facility] [address] [address] Abbi Choudhary M.D. [id number] COCAINE, SCREEN URINE Not detected Normal None Detected [facility] Comment on above: Order Comment: Scree n results should be used for treatment purposes only. Result Comment: Urin e Cocaine Cutoff: < 300 ng/mL = None Detected Performed By: #### 4 [id number] ####[facility] [address] [address] Abbi Choudhary M.D. [id number] FENTANYL, URINE Not detected Normal None Detected [facility] Comment on above: Order Comment: Scree n results should be used for treatment purposes only. Result Comment: Urin e Fentanyl Cutoff: < 1 ng/mL = None Detected Performed By: #### 4 [id number] ####[facility] [address] [address] Abbi Choudhary M.D. [id number] METHADONE SCREEN, URINE Not detected Normal None Detected [facility] Comment on above: Order Comment: Scree n results should be used for treatment purposes only. Result Comment: Urin e Methadone Cutoff: < 300 ng/mL = None Detected Performed By: #### 4 [id number] ####[facility] [address] [address] Abbi Choudhary M.D. [id number] OPIATE SCREEN URINE Not detected Normal None Detected [facility] Comment on above: Order Comment: Scree n results should be used for treatment purposes only. Result Comment: Urin e Opiates Cutoff: < 300 ng/mL = None Detected Performed By: #### 4 [id number] ####[facility] [address] [address] Abbi Choudhary M.D. [id number] OXYCODONE SCREEN, URINE Not detected Normal None Detected [facility] Comment on above: Order Comment: Scree n results should be used for treatment purposes only. Result Comment: Debora farrell Oxycodone Cutoff: < 100 ng/mL = None Detected Performed By: #### 4 [id number] ####[facility] [address] [place], [place] [address] Abbi Choudhary M.D. [id number] ED Prov Noteon 09-22-2024 ED Prov Note Normal [facility] HEPATIC FUNCTION PANELon Albumin [Mass/Vol] 3.5 g/dL Normal 3.2-5.2 [facility] Comment on above: Performed By: #### 4 [id number] ####[facility] [address] [place], [place] [address] Abbi Choudhary M.D. [id number] ALP [Catalytic activity/Vol] 107 U/L Normal 40-150 [facility] Comment on above: Performed By: #### 4 [id number] ####[facility] [address] [place], [place] [address] Abbi Choudhary M.D. [id number] ALT [Catalytic activity/Vol] 11 U/L Normal 0-35 U/L [facility] Comment on above: Performed By: #### 4 [id number] ####[facility] [address] [place], [place] [address] Abbi Choudhary M.D. [id number] AST [Catalytic activity/Vol] 12 U/L Normal 0-35 U/L [facility] Comment on above: Performed By: #### 4 [id number] ####[facility] [address] [place], [place] [address] Abbi Choudhary M.D. [id number] Bilirubin [Mass/Vol] 0.3 mg/dL Normal 0.0-1.3 [facility] Comment on above: Performed By: #### 4 [id number] ####[facility] [address] [place], [place] [address] Abbi Choudhary M.D. [id number] Bilirubin.indirect [Mass/Vol] 0.2 mg/dL Normal 0.0-0.4 [facility] Comment on above: Performed By: #### 4 [id number] ####[facility] [address] [place], [place] [address] Abbi Choudhary M.D. [id number] Protein [Mass/Vol] 6.5 g/dL Normal 6.0-8.0 [facility] Comment on above: Performed By: #### 4 [id number] ####[facility] [address] [place], [place] [address] Abbi Choudhary M.D. [id number] LEVETIRACETAM LEVELon 2024 LEVETIRACETAM < Low 6.0-46.0 [facility] Comment on above: Performed By: #### 4 7512 ####[facility] [address] [place], [place] [address] Swapnil Brewer M.D. [id number] MORPHOLOGYon 09-22-2024 PLATELET ESTIMATE Normal Normal Normal [facility] Comment on above: Performed By: #### L [id number] ####[facility] [address] [address] Abbi Choudhary M.D. [id number] RBC MORPH SCAN Normal Normal [facility] Comment on above: Result Comment: RBC Indices confirmed with manual peripheral smear review. Performed By: #### L [id number] ####[facility] [address] [place], [place] [address] Abbi Choudhary M.D. [id number] URINALYSISon 09-22-2024 BACTERIA, URINE Few Abnormal None Seen [facility] Comment on above: Order Comment: Micro scopic examination is performed on all urinalysis samples and only positive findings are reported. The test for blood on the chemical analytic portion of urinalysis may also be positive due to hemoglobinuria and myoglobinuria and if red blood cells are present they are quantified by microscopic examination. Performed By: #### 4 [id number] ####[facility] [address] [address] Abbi Choudhary M.D. [id number] BILIRUBIN, URINE Negative Normal Negative [facility] Comment on above: Order Comment: Micro scopic examination is performed on all urinalysis samples and only positive findings are reported. The test for blood on the chemical analytic portion of urinalysis may also be positive due to hemoglobinuria and myoglobinuria and if red blood cells are present they are quantified by microscopic examination. Performed By: #### 4 [id number] ####[facility] [address] [place], [place] [address] Abbi Choudhary M.D. [id number] BLOOD, URINE Small Abnormal Negative [facility] Comment on above: Order Comment: Micro scopic examination is performed on all urinalysis samples and only positive findings are reported. The test for blood on the chemical analytic portion of urinalysis may also be positive due to hemoglobinuria and myoglobinuria and if red blood cells are present they are quantified by microscopic examination. Performed By: #### 4 6625 ####[facility] [address] [place], [place] [address] Abbi Choudhary M.D. [id number] Clarity (U) Hazy Abnormal Clear [facility] Comment on above: Order Comment: Micro scopic examination is performed on all urinalysis samples and only positive findings are reported. The test for blood on the chemical analytic portion of urinalysis may also be positive due to hemoglobinuria and myoglobinuria and if red blood cells are present they are quantified by microscopic examination. Performed By: #### 4 6625 ####[facility] [address] [place], [place] [address] Abbi Choudhary M.D. [id number] Color (U) Yellow Normal Colorless, Yellow [facility] Comment on above: Order Comment: Micro scopic examination is performed on all urinalysis samples and only positive findings are reported. The test for blood on the chemical analytic portion of urinalysis may also be positive due to hemoglobinuria and myoglobinuria and if red blood cells are present they are quantified by microscopic examination. Performed By: #### 4 6625 ####[facility] [address] [place], [place] [address] Abbi Choudhary M.D. [id number] Glucose Ql (U) >=500 Abnormal Negative [facility] Comment on above: Order Comment: Micro scopic examination is performed on all urinalysis samples and only positive findings are reported. The test for blood on the chemical analytic portion of urinalysis may also be positive due to hemoglobinuria and myoglobinuria and if red blood cells are present they are quantified by microscopic examination. Performed By: #### 4 6625 ####[facility] [address] [place] [id number] Abbi Choudhary M.D. [id number] Hyaline casts LM Ql (Urine sed) 0-2 Normal 0-2 [facility] Comment on above: Order Comment: Micro scopic examination is performed on all urinalysis samples and only positive findings are reported. The test for blood on the chemical analytic portion of urinalysis may also be positive due to hemoglobinuria and myoglobinuria and if red blood cells are present they are quantified by microscopic examination. Performed By: #### 4 [id number] ####[facility] [address] [address] Abbi Choudhary M.D. [id number] Ketones Ql (U) Negative Normal Negative [facility] Comment on above: Order Comment: Micro scopic examination is performed on all urinalysis samples and only positive findings are reported. The test for blood on the chemical analytic portion of urinalysis may also be positive due to hemoglobinuria and myoglobinuria and if red blood cells are present they are quantified by microscopic examination. Performed By: #### 4 6625 ####[facility] [address] [place], [place] [address] Abbi Choudhary M.D. [id number] Leukocyte esterase Test strip Ql (U) Negative Normal Negative [facility] Comment on above: Order Comment: Micro scopic examination is performed on all urinalysis samples and only positive findings are reported. The test for blood on the chemical analytic portion of urinalysis may also be positive due to hemoglobinuria and myoglobinuria and if red blood cells are present they are quantified by microscopic examination. Performed By: #### 4 6625 ####[facility] [address] [place], [place] [address] Abbi Choudhary M.D. [id number] NITRITE, URINE Negative Normal Negative [facility] Comment on above: Order Comment: Micro scopic examination is performed on all urinalysis samples and only positive findings are reported. The test for blood on the chemical analytic portion of urinalysis may also be positive due to hemoglobinuria and myoglobinuria and if red blood cells are present they are quantified by microscopic examination. Performed By: #### 4 6625 ####[facility] [address] [place], [place] [address] Abbi Choudhary M.D. [id number] pH (U) 5.0 [pH] Normal 5.0-7.0 [facility] Comment on above: Order Comment: Micro scopic examination is performed on all urinalysis samples and only positive findings are reported. The test for blood on the chemical analytic portion of urinalysis may also be positive due to hemoglobinuria and myoglobinuria and if red blood cells are present they are quantified by microscopic examination. Performed By: #### 4 6625 ####[facility] [address] [place] [address] Abbi Choudhary M.D. [id number] Protein (U) [Mass/Vol] 100 mg/dL Abnormal Negative [facility] Comment on above: Order Comment: Micro scopic examination is performed on all urinalysis samples and only positive findings are reported. The test for blood on the chemical analytic portion of urinalysis may also be positive due to hemoglobinuria and myoglobinuria and if red blood cells are present they are quantified by microscopic examination. Performed By: #### 4 [id number] ####[facility] [address] [place], [place] [address] Abbi Choudhary M.D. [id number] RBC LM.HPF (Urine sed) [#/Area] 1 /[HPF] Normal 0-3 [facility] Comment on above: Order Comment: Micro scopic examination is performed on all urinalysis samples and only positive findings are reported. The test for blood on the chemical analytic portion of urinalysis may also be positive due to hemoglobinuria and myoglobinuria and if red blood cells are present they are quantified by microscopic examination. Performed By: #### 4 6625 ####[facility] [address] [place], [place] [address] Abbi Choudhary M.D. [id number] Specific gravity (U) [Rel density] 1.017 Normal 1.005-1.025 [facility] Comment on above: Order Comment: Micro scopic examination is performed on all urinalysis samples and only positive findings are reported. The test for blood on the chemical analytic portion of urinalysis may also be positive due to hemoglobinuria and myoglobinuria and if red blood cells are present they are quantified by microscopic examination. Performed By: #### 4 6625 ####[facility] [address] [place], [place] [address] Abbi Choudhary M.D. [id number] SQUAMOUS EPITHELIAL 1 /hpf Normal 0-4 [facility] Comment on above: Order Comment: Micro scopic examination is performed on all urinalysis samples and only positive findings are reported. The test for blood on the chemical analytic portion of urinalysis may also be positive due to hemoglobinuria and myoglobinuria and if red blood cells are present they are quantified by microscopic examination. Performed By: #### 4 6625 ####[facility] [address] [place], [place] [address] Abbi Choudhary M.D. [id number] UROBILINOGEN, URINE <2.0 Normal <2.0 [facility] Comment on above: Order Comment: Micro scopic examination is performed on all urinalysis samples and only positive findings are reported. The test for blood on the chemical analytic portion of urinalysis may also be positive due to hemoglobinuria and myoglobinuria and if red blood cells are present they are quantified by microscopic examination. Performed By: #### 4 6625 ####[facility] [address] [place], [place] [address] Abbi Choudhary M.D. [id number] WBC LM.HPF (Urine sed) [#/Area] 6 /[HPF] High 0-5 [facility] Comment on above: Order Comment: Micro scopic examination is performed on all urinalysis samples and only positive findings are reported. The test for blood on the chemical analytic portion of urinalysis may also be positive due to hemoglobinuria and myoglobinuria and if red blood cells are present they are quantified by microscopic examination. Performed By: #### 4 6625 ####[facility] [address] [place], [place] [address] Abbi Choudhary M.D. [id number] BASIC METABOLIC PANELon 04- Anion gap [Moles/Vol] 15 mmol/L Normal 10-20 [facility] Comment on above: Order Comment: [facility] has implemented the eGFR calculation approach that does not have a coefficient for race that conforms to the NKF-ASN Task Force Recommendations. Performed By: #### 4 [id number] ####[facility] [address] [place], [place] [address] Abbi Choudhary M.D. [id number] Calcium [Mass/Vol] 9.4 mg/dL Normal 8.4-10.2 [facility] Comment on above: Order Comment: [facility] has implemented the eGFR calculation approach that does not have a coefficient for race that conforms to the NKF-ASN Task Force Recommendations. Performed By: #### 4 6124 ####[facility] [address] [place], [place] [address] Abbi Choudhary M.D. [id number] Chloride [Moles/Vol] 102 mmol/L Normal 98-108 [facility] Comment on above: Order Comment: [facility] has implemented the eGFR calculation approach that does not have a coefficient for race that conforms to the NKF-ASN Task Force Recommendations. Performed By: #### 4 6124 ####[facility] [address] [place], [place] [address] Abbi Choudhary M.D. [id number] Creatinine [Mass/Vol] 1.75 mg/dL High 0.40-1.10 [facility] Comment on above: Order Comment: [facility] has implemented the eGFR calculation approach that does not have a coefficient for race that conforms to the NKF-ASN Task Force Recommendations. Performed By: #### 4 6124 ####[facility] [address] [place], [place] [address] Abbi Choudhary M.D. [id number] EGFR 36 mL/min/1.73 m2 Low >=60 [facility] Comment on above: Order Comment: [facility] has implemented the eGFR calculation approach that does not have a coefficient for race that conforms to the NKF-ASN Task Force Recommendations. Result Comment: Lorie mated GFR was calculated using the 2020 CKD-EPI creatinine equation. Performed By: #### 4 [id number] ####[facility] [address] [place], [place] [address] Abbi Choudhary M.D. [id number] Glucose [Mass/Vol] 237 mg/dL High 65-99 [facility] Comment on above: Order Comment: [facility] [facility] has implemented the eGFR calculation approach that does not have a coefficient for race that conforms to the NKF-ASN Task Force Recommendations. Performed By: #### 4 [id number] ####[facility] [address] [place], [place] [address] Abbi Choudhary M.D. [id number] HCO3 (Bld) [Moles/Vol] 23 mmol/L Normal 21-32 [facility] Comment on above: Order Comment: [facility] has implemented the eGFR calculation approach that does not have a coefficient for race that conforms to the NKF-ASN Task Force Recommendations. Performed By: #### 4 6124 ####[facility] [address] [place], [place] [address] Abbi Choudhary M.D. [id number] Potassium [Moles/Vol] 3.7 mmol/L Normal 3.5-5.1 [facility] Comment on above: Order Comment: [facility] has implemented the eGFR calculation approach that does not have a coefficient for race that conforms to the NKF-ASN Task Force Recommendations. Performed By: #### 4 6124 ####[facility] [address] [place], [place] [address] Abbi Choudhary M.D. [id number] Sodium [Moles/Vol] 136 mmol/L Normal 135-145 [facility] Comment on above: Order Comment: [facility] has implemented the eGFR calculation approach that does not have a coefficient for race that conforms to the NKF-ASN Task Force Recommendations. Performed By: #### 4 6124 ####[facility] [address] [place], [place] [address] Abbi Choudhary M.D. [id number] Urea nitrogen [Mass/Vol] 26 mg/dL High 8-25 [facility] Comment on above: Order Comment: [facility] has implemented the eGFR calculation approach that does not have a coefficient for race that conforms to the NKF-ASN Task Force Recommendations. Performed By: #### 4 6124 ####[facility] [address] [place] [address] Abbi Choudhary M.D. [id number] Urea nitrogen/Creatinine [Mass ratio] 14.9 mg/mg Normal 10.0-20.0 [facility] Comment on above: Order Comment: [facility] has implemented the eGFR calculation approach that does not have a coefficient for race that conforms to the NKF-ASN Task Force Recommendations. Performed By: #### 4 6124 ####[facility] [address] [place] [address] Abbi Choudhary M.D. [id number] CBC WITH AUTO DIFFERENTIALon 09-18-2024 AUTO NRBC 0.0 % Normal [facility] Comment on above: Performed By: #### L [id number] ####[facility] [address] [place] [address] Abbi Choudhary M.D. [id number] AUTO NRBC ABS COUNT 0.00 K/mcL Normal 0.00-0.00 [facility] Comment on above: Performed By: #### L [id number] ####[facility] [address] [place] [address] Abbi Choudhary M.D. [id number] BASOPHILS ABSOLUTE COUNT 0.05 K/mcL Normal 0.00-0.30 [facility] Comment on above: Performed By: #### L [id number] ####[facility] [address] [place] [address] Abbi Choudhary M.D. [id number] Basophils/100 WBC (Bld) 0.5 % Normal [facility] Comment on above: Performed By: #### L [id number] ####[facility] [address] [place] [address] Abbi Choudhary M.D. [id number] Eosinophils (Bld) [#/Vol] 0.19 10*3/uL Normal 0.00-0.50 [facility] Comment on above: Performed By: #### L [id number] ####[facility] [address] [place] [address] Abbi Choudhary M.D. [id number] Eosinophils/100 WBC (Bld) 2.1 % Normal [facility] Comment on above: Performed By: #### L [id number] ####[facility] [address] [place] [address] Abbi Choudhary M.D. [id number] Erythrocyte distribution width (RBC) [Ratio] 12.6 % Normal 11.6-14.8 [facility] Comment on above: Performed By: #### L [id number] ####[facility] [address] [place] [address] Abbi Choudhary M.D. [id number] Hematocrit (Bld) [Volume fraction] 33.5 % Low 36.0-46.0 [facility] Comment on above: Performed By: #### L [id number] ####[facility] [address] [place] [address] Abbi Choudhary M.D. [id number] Hemoglobin (Bld) [Mass/Vol] 11.6 g/dL Low 12.0-16.0 [facility] Comment on above: Performed By: #### L [id number] ####[facility] [address] [place] [address] Abbi Choudhary M.D. [id number] IG ABSOLUTE 0.07 K/mcL Normal 0.00-0.30 [facility] Comment on above: Performed By: #### L [id number] ####[facility] [address] [place] [address] Abbi Choudhary M.D. [id number] IG PERCENT 0.80 % Normal [facility] Comment on above: Result Comment: The IG parameter is the percentage of metamyelocytes, myelocytes and promyelocytes. An immature granulocyte count (IG) of 1% or more suggests the possibility of infection, an IG count of 3% is very likely related to an infection. Performed By: #### L [id number] ####[facility] [address] [place] [address] Abbi Choudhary M.D. [id number] Lymphocytes (Bld) [#/Vol] 2.26 10*3/uL Normal 0.90-4.00 [facility] Comment on above: Performed By: #### L [id number] ####[facility] [address] [place] [address] Abbi Choudhary M.D. [id number] Lymphocytes/100 WBC (Bld) 24.4 % Normal [facility] Comment on above: Performed By: #### L [id number] ####[facility] [address] [place] [address] Abbi Choudhary M.D. [id number] MCH (RBC) [Entitic mass] 30.4 pg Normal 26.0-34.0 [facility] Comment on above: Performed By: #### L [id number] ####[facility] [address] [place] [address] Abbi Choudhary M.D. [id number] MCV (RBC) [Entitic vol] 87.7 fL Normal 80.0-100.0 [facility] Comment on above: Performed By: #### L [id number] ####[facility] [address] [place] [address] Abbi Choudhary M.D. [id number] MEAN CORPUSCULAR HEMOGLOBIN CONC 34.6 g/dL Normal 31.0-37.0 [facility] Comment on above: Performed By: #### L [id number] ####[facility] [address] [place] [address] Abbi Choudhary M.D. [id number] Monocytes (Bld) [#/Vol] 0.54 10*3/uL Normal 0.30-0.90 [facility] Comment on above: Performed By: #### L [id number] ####[facility] [address] [place], [place] [address] Abbi Choudhary M.D. [id number] Monocytes/100 WBC (Bld) 5.8 % Normal [facility] Comment on above: Performed By: #### L [id number] ####[facility] [address] [place], [place] [address] Abbi Cohudhary M.D. [id number] NEUTROPHILS ABSOLUTE COUNT 6.15 K/mcL Normal 1.70-7.00 [facility] Comment on above: Performed By: #### L [id number] ####[facility] [address] [place], [place] [address] Abbi Choudhary M.D. [id number] Neutrophils/100 WBC (Bld) 66.4 % Normal [facility] Comment on above: Performed By: #### L [id number] ####[facility] [address] [place], [place] [address] Abbi Choudhary M.D. [id number] Platelet mean volume (Bld) [Entitic vol] 9.2 fL Low 9.4-12.4 [facility] Comment on above: Performed By: #### L [id number] ####[facility] [address] [place] [address] Abbi Choudhary M.D. [id number] Platelets (Bld) [#/Vol] 290 10*3/uL Normal 150-400 [facility] Comment on above: Performed By: #### L [id number] ####[facility] [address] [place], [place] [address] Abbi Choudhary M.D. [id number] RBC (Bld) [#/Vol] 3.82 10*6/uL Low 4.00-5.20 [facility] Comment on above: Performed By: #### L [id number] ####[facility] [address] [place], [place] [address] Abbi Choudhary M.D. [id number] WBC (Bld) [#/Vol] 9.26 10*3/uL Normal 4.50-11.00 [facility] Comment on above: Performed By: #### L [id number] ####[facility] [address] [place], [place] [address] Abbi Choudhary M.D. [id number] ED Prov Noteon 09-18-2024 ED Prov Note Normal [facility] TROPONIN X 2 (NOW AND REPEAT IN 2 HOURS)on 09-18-2024 BASELINE TROPONIN T NG/L 24 ng/L Off scale high <=14 [facility] Comment on above: Performed By: #### 4 6608 ####[facility] [address] [place], [place] [address] Abbi Choudhary M.D. [id number] TROPONIN T INTERPRETATION Possible acute cardiac injury. Normal [facility] Comment on above: Performed By: #### 4 6608 ####[facility] [address] [place], [place] [address] Abbi Choudhary M.D. [id number] XR ANKLE LEFT 3+ VIEWS (LARISA DARD)on 09-18-2024 XR ANKLE LEFT 3+ VIEWS (STANDARD) Normal [facility] Comment on above: Order Comment: Injur y/Trauma or Illness?:Injury/TraumaHow long have you had these symptoms (acute/chronic)?:AcuteReason for exam?:ankle painHistory of cancer?:uSurgeries, chemotherapy, or radiation?:pacemakerType of Exam?:InitialMechanism of injury?:fall XR CHEST PA/APon 09-18-2024 XR CHEST PA/AP [facility] Comment on above: Order Comment: Injur y/Trauma or Illness?:Illness/OtherHow long have you had these symptoms (acute/chronic)?:AcuteReason for exam?:chest painHistory of cancer?:uSurgeries, chemotherapy, or radiation?:pacemakerType of Exam?:InitialAdditional signs and symptoms?:na XR KNEE LEFT 2 VIEWS ([address])on 09-18-2024 XR KNEE LEFT 2 VIEWS (STANDARD) [facility] Comment on above: Order Comment: Injur y/Trauma or Illness?:Injury/TraumaHow long have you had these symptoms (acute/chronic)?:AcuteReason for exam?:knee painHistory of cancer?:uSurgeries, chemotherapy, or radiation?:pacemakerType of Exam?:InitialMechanism of injury?:fall [facility] 08-29-2024 [place] [address] - 2 ORGAN,ADDIE J 1975 (49 F) [id number] 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 Associated Symptoms: bleeding, controlled Date of Onset (approx): 08/29/24 Time of Onset (approx): 17:30 [address] of Occurrence: home Context: accidental and sharp object use Improves With: applying pressure Worsens With: movement Treatment INTEGRATION ANALYST: none Provider HPI Details Patient presents today [...] nose Card (more content not included)... Normal [facility] CBC (INCLUDES DIFF/PLT)on Basophils (Bld) [#/Vol] 0.093 10*3/uL Normal 0-200 [facility] Comment on above: Performed By: #### 9 1431, 27195, 866, 899, 496, 6399, 15304 #### [facility] [place] [address] Adolescent Specialist: Dean Maddox MD Basophils/100 WBC (Bld) 0.8 % Normal [facility] Comment on above: Performed By: #### 9 1431, 00614, 866, 899, 496, 6399, 64683 #### [facility] [place] [address] Adolescent Specialist: Dean Maddox MD Eosinophils (Bld) [#/Vol] 0.22 10*3/uL Normal 15-500 [facility] Comment on above: Performed By: #### 9 1431, 73289, 866, 899, 496, 6399, 44915 #### [facility] [address], [address] [place] [address] Adolescent Specialist: Dean Maddox MD Eosinophils/100 WBC (Bld) 1.9 % Normal [facility] Comment on above: Performed By: #### 9 1431, 70572, 866, 899, 496, 6399, 14460 #### [facility] [place] [address] Adolescent Specialist: Dean Maddox MD Erythrocyte distribution width (RBC) [Ratio] 12.8 % Normal 11.0-15.0 [facility] Comment on above: Performed By: #### 9 1431, 26111, 866, 899, 496, 6399, 94509 #### [facility] of [place] [address] Adolescent Specialist: Dean Maddox MD Hematocrit (Bld) [Volume fraction] 41.1 % Normal 35.0-45.0 [facility] Comment on above: Performed By: #### 9 1431, 59727, 866, 899, 496, 6399, 96742 #### [facility] of [place] [address] Adolescent Specialist: Dean Maddox MD Hemoglobin (Bld) [Mass/Vol] 13.8 g/dL Normal 11.7-15.5 [facility] Comment on above: Performed By: #### 9 1431, 23425, 866, 899, 496, 6399, 09640 #### [facility] of [place] [address] Adolescent Specialist: Dean Maddox MD Lymphocytes (Bld) [#/Vol] 2.401 10*3/uL Normal 850-3900 [facility] Comment on above: Performed By: #### 9 1431, 02738, 866, 899, 496, 6399, 48212 #### [facility] of [place] [address] Adolescent Specialist: Dean Maddox MD Lymphocytes/100 WBC (Bld) 20.7 % Normal [facility] Comment on above: Performed By: #### 9 1431, 59324, 866, 899, 496, 6399, 93282 #### [facility] of [place] [address] Adolescent Specialist: Dean Maddox MD MCH (RBC) [Entitic mass] 30.1 pg Normal 27.0-33.0 [facility] Comment on above: Performed By: #### 9 1431, 46945, 866, 899, 496, 6399, 71761 #### [facility] of [place] [address] Adolescent Specialist: Dean Maddox MD MCHC (RBC) [Mass/Vol] 33.6 [...] clinical condition. Performed By: #### 9 1431, 84105, 866, 899, 496, 6399, 34016 #### [facility] of [place] [address] Adolescent Specialist: Dean Maddox MD MCV (RBC) [Entitic vol] 89.7 fL Normal 80.0-100.0 [facility] Comment on above: Performed By: #### 9 1431, 95518, 866, 899, 496, 6399, 37994 #### [facility] of [place] [address] Adolescent Specialist: Dean Maddox MD Monocytes (Bld) [#/Vol] 0.661 10*3/uL Normal 200-950 [facility] Comment on above: Performed By: #### 9 1431, 79285, 866, 899, 496, 6399, 43269 #### [facility] of [place] [address] Adolescent Specialist: Dean Maddox MD Monocytes/100 WBC (Bld) 5.7 % Normal [facility] Comment on above: Performed By: #### 9 1431, 72597, 866, 899, 496, 6399, 93586 #### [facility] of [place] [address] Adolescent Specialist: Dean Maddox MD Neutrophils (Bld) [#/Vol] 8.224 10*3/uL High 6833-1709 [facility] Comment on above: Performed By: #### 9 1431, 69911, 866, 899, 496, 6399, 44174 #### [facility] of [place] [address] Adolescent Specialist: Dean Maddox MD Neutrophils/100 WBC (Bld) 70.9 % Normal [facility] Comment on above: Performed By: #### 9 1431, 71083, 866, 899, 496, 6399, 60557 #### [facility] of [place] [address] Adolescent Specialist: Dean Maddox MD Platelet mean volume (Bld) [Entitic vol] 8.9 fL Normal 7.5-12.5 [facility] Comment on above: Performed By: #### 9 1431, 09429, 866, 899, 496, 6399, 56075 #### [facility] of [place] [address] Adolescent Specialist: Dean Maddox MD Platelets (Bld) [#/Vol] 404 10*3/uL High 140-400 [facility] Comment on above: Performed By: #### 9 1431, 09007, 866, 899, 496, 6399, 32311 #### [facility] of [place] [address] Adolescent Specialist: Dean Maddox MD RBC (Bld) [#/Vol] 4.58 10*6/uL Normal 3.80-5.10 [facility] Comment on above: Performed By: #### 9 1431, 89487, 866, 899, 496, 6399, 00845 #### [facility] of [place] [address] Adolescent Specialist: Dean Maddox MD WBC (Bld) [#/Vol] 11.6 10*3/uL High 3.8-10.8 [facility] Comment on above: Performed By: #### 9 1431, 61867, 866, 899, 496, 6399, 34063 #### [facility] [address] [facility], [address] [place] [address] Adolescent Specialist: Dean Maddox MD CBC Auto Differentialon 07-23 Basophils (Bld) [#/Vol] 93 10*3/uL [facility] Basophils/100 WBC (Bld) 0.8 % [facility] Eosinophils (Bld) [#/Vol] 220 10*3/uL [facility] Eosinophils/100 WBC (Bld) 1.9 % [facility] Erythrocyte distribution width (RBC) [Ratio] 12.8 % 11.0 - 15.0 % [facility] Hematocrit (Bld) [Volume fraction] 41.1 % 35.0 - 45.0 % [facility] Hemoglobin (Bld) [Mass/Vol] 13.8 g/dL 11.7 - 15.5 g/dL [facility] Interpretation and review of laboratory results Abnormal [facility] Lymphocytes (Bld) [#/Vol] 2401 10*3/uL [facility] Lymphocytes/100 WBC (Bld) 20.7 % [facility] MCH (RBC) [Entitic mass] 30.1 pg 27.0 - 33.0 pg [facility] MCHC (RBC) [Mass/Vol] 33.6 g/dL 32.0 - 36.0 g/dL [facility] Comment on above: For adults, a slight decrease in the calculated MCHC value (in the range of 30 to 32 g/dL) is most likely not clinically significant; however, it should be interpreted with caution in correlation with other red cell parameters and the patient's clinical condition. MCV (RBC) [Entitic vol] 89.7 fL 80.0 - 100.0 fL [facility] Monocytes (Bld) [#/Vol] 661 10*3/uL [facility] Monocytes/100 WBC (Bld) 5.7 % [facility] Neutrophils (Bld) [#/Vol] 8224 10*3/uL High [facility] Neutrophils/100 WBC (Bld) 70.9 % [facility] Platelet mean volume (Bld) [Entitic vol] 8.9 fL 7.5 - 12.5 fL [facility] Platelets (Bld) [#/Vol] 404 10*3/uL High [facility] RBC (Bld) [#/Vol] 4.58 10*6/uL [facility] WBC (Bld) [#/Vol] 11.6 10*3/uL [facility] COMPREHENSIVE METABOLIC PANE L W/ANION GAPon 08-03-2024 Albumin [Mass/Vol] 4.1 g/dL Normal 3.6-5.1 [facility] Comment on above: Performed By: #### 9 1431, 06718, 866, 899, 496, 6399, 59481 #### [facility] of [address], [address] [place] [address] Adolescent Specialist: Dean Maddox MD ALP [Catalytic activity/Vol] 98 U/L Normal 31-125 [facility] Comment on above: Performed By: #### 9 1431, 31708, 866, 899, 496, 6399, 63883 #### [facility] of [address], [address] [place] [address] Adolescent Specialist: Dean Maddox MD ALT [Catalytic activity/Vol] 11 U/L Normal 6-29 [facility] Comment on above: Performed By: #### 9 1431, 11882, 866, 899, 496, 6399, 91932 #### [facility] of [place] [address] Adolescent Specialist: Dean Maddox MD AST [Catalytic activity/Vol] 10 U/L Normal 10-35 [facility] Comment on above: Performed By: #### 9 1431, 33091, 866, 899, 496, 6399, 63152 #### [facility] of [address], [address] [place] [address] Adolescent Specialist: Dean Maddox MD Bilirubin [Mass/Vol] 0.4 mg/dL Normal 0.2-1.2 [facility] Comment on above: Performed By: #### 9 1431, 49604, 866, 899, 496, 6399, 68056 #### [facility] of [address], [address] [place] [address] Adolescent Specialist: Dean Maddox MD Calcium [Mass/Vol] 9.6 mg/dL Normal 8.6-10.2 [facility] Comment on above: Performed By: #### 9 1431, 98839, 866, 899, 496, 6399, 51464 #### [facility] [address], [address] [place] [address] Adolescent Specialist: Dean Maddox MD Chloride [Moles/Vol] 105 mmol/L Normal 98-110 [facility] Comment on above: Performed By: #### 9 1431, 46499, 866, 899, 496, 6399, 83607 #### [facility] [place] [address] Adolescent Specialist: Dean Maddox MD CO2 [Moles/Vol] 20 mmol/L Normal 20-32 [facility] Comment on above: Performed By: #### 9 1431, 78264, 866, 899, 496, 6399, 44657 #### [facility] [place] [address] Adolescent Specialist: Dean Maddox MD Creatinine [Mass/Vol] 1.30 mg/dL High 0.50-0.[address] [facility] Comment on above: Performed By: #### 9 1431, 40116, 866, 899, 496, 6399, 58529 #### [facility] [place] [address] Adolescent Specialist: Dean Maddox MD ELECTROLYTE BALANCE 11 mmol/L (calc) Normal 7-17 [facility] Comment on above: Performed By: #### 9 1431, 63676, 866, 899, 496, 6399, 52066 #### [facility] [place] [address] Adolescent Specialist: Dean Maddox MD GFR/1.73 sq M.predicted among non-blacks MDRD (S/P/Bld) [Vol rate/Area] 51 mL/min/{1.73_m2} Low > OR = 60 [facility] Comment on above: Performed By: #### 9 1431, 32311, 866, 899, 496, 6399, 46844 #### [facility] [place] [address] Adolescent Specialist: Dean Maddox MD Glucose [Mass/Vol] 214 mg/dL High 65-99 [facility] Comment on above: Result Comment: Fasting reference interval For someone without known diabetes, a glucose value >125 mg/dL indicates that they may have diabetes and this should be confirmed with a follow-up test. Performed By: #### 9 1431, 61993, 866, 899, 496, 6399, 81675 #### [facility] [place] [address] Adolescent Specialist: Dean Maddox MD Potassium [Moles/Vol] 4.9 mmol/L Normal 3.5-5.3 [facility] Comment on above: Performed By: #### 9 1431, 18105, 866, 899, 496, 6399, 18058 #### [facility] [place] [address] Adolescent Specialist: eDan Maddox MD Protein [Mass/Vol] 7.0 g/dL Normal 6.1-8.1 [facility] Comment on above: Performed By: #### 9 1431, 62865, 866, 899, 496, 6399, 30714 #### [facility] [place] [address] Adolescent Specialist: Dean Maddox MD Sodium [Moles/Vol] 136 mmol/L Normal 135-146 [facility] Comment on above: Performed By: #### 9 1431, 58962, 866, 899, 496, 6399, 50537 #### [facility] [place] [address] Adolescent Specialist: Dean Maddox MD Urea nitrogen [Mass/Vol] 30 mg/dL High 7-25 [facility] Comment on above: Performed By: #### 9 9201, 74520, 866, 897, 688, 9544, 39934 #### [facility] [address] [facility], [address] [place] [address] Adolescent Specialist: Dean Maddox MD Comprehensive metabolic 2000 panelon 08-03-2024 Albumin [Mass/Vol] 4.1 g/dL 3.6 - 5.1 g/dL [facility] ALP [Catalytic activity/Vol] 98 U/L 31 - 125 U/L [facility] ALT [Catalytic activity/Vol] 11 U/L 6 - 29 U/L [facility] Anion gap [Moles/Vol] 11 mmol/L [facility] AST [Catalytic activity/Vol] 10 U/L 10 - 35 U/L [facility] Bilirubin [Mass/Vol] 0.4 mg/dL 0.2 - 1 .2 mg/dL [facility] Calcium [Mass/Vol] 9.6 mg/dL 8.6 - 10. 2 mg/dL [facility] Chloride [Moles/Vol] 105 mmol/L 98 - 11 0 mmol/L [facility] CO2 [Moles/Vol] 20 mmol/L 20 - 32 mmol/L [facility] Creatinine [Mass/Vol] 1.3 mg/dL High 0.50 - 0.99 mg/dL [facility] GFR/1.73 sq M.predicted among non-blacks MDRD (S/P/Bld) [Vol rate/Area] 51 mL/min/{1.73_m2} Low > OR = 60 mL/min/1.73 m2 [facility] Glucose [Mass/Vol] 214 mg/dL High 65 - 99 mg/dL [facility] Comment on above: Fasting reference interval For someone without known diabetes, a glucose value >125 mg/dL indicates that they may have diabetes and this should be confirmed with a follow-up test. Potassium [Moles/Vol] 4.9 mmol/L 3.5 - 5.3 mmol/L [facility] Protein [Mass/Vol] 7 g/dL 6.1 - 8.1 g/dL [facility] Sodium [Moles/Vol] 136 mmol/L 135 - 146 mmol/L [facility] Urea nitrogen [Mass/Vol] 30 mg/dL High 7 - 25 mg/dL [facility] HEMOGLOBIN A1con 08-03-2024 HEMOGLOBIN A1c 10.6 % [...] for children. Performed By: #### 9 1431, 00657, 866, 899, 496, 6399, 61793 #### [facility] [address] [place] [address], [address] [place] [address] Adolescent Specialist: Dean Maddox MD HEPATITIS C AB W/REFL TO HCV RNA, QN, PCRon 08-03-2024 HEPATITIS C ANTIBODY Normal [facility] Comment on above: Performed By: #### 9 1431, 17459, 866, 899, 496, 6399, 57398 #### [facility] [facility] [address] [place], [place] [address] , [address] [place] [address] Adolescent Specialist: Dean Maddox MD HIV 1/2 ANTIGEN/ANTIBODY,FOU RTH GENERATION W/RFLon 08-03-2024 HIV AG/AB, 4TH GEN Normal [facility] Comment on above: Performed By: #### 9 1431, 17906, 866, 899, 496, 6399, 40013 #### [facility] [address], [address] [place] [address] Adolescent Specialist: Dean Maddox MD HIV Antibody (HIV1/HIV2)on 0 08-03-2024 HIV 1+2 Ab+HIV1 p24 Ag IA Ql Non-Reactive NON-REACTIV E [facility] Comment on above: HIV-1 antigen and HI [...] purpose. For additional information please refer to http://[employer].[address]/faq/UHH297 (This link is being provided for informational/ educational purposes only.) The performance of this assay has not been clinically validated in patients less than 2 years old. HbA1c (Bld) [Mass fraction]o n 08-03-2024 Interpretation and review of laboratory results Abnormal [facility] Hemoglobin A1con 08-03-2024 HbA1c (Bld) [Mass fraction] 10.6 % High [facility] Comment on above: For someone without known [...] HCV Ab IA Ql Non-Reactive NON-REACTIV E [facility] Comment on above: HCV antibody was non-reactive. There is no laboratory evidence of HCV infection. In most cases, no further action is required. However, if recent HCV exposure is suspected, a test for HCV RNA (test code 06553) is suggested. For additional information please refer to http://education.[employer]/faq/BBB80z5 (This link is being provided for informational/ educational purposes only.) LIPID PANEL WITH REFLEX TO D IRECT LDLon 08-03-2024 Cholesterol [Mass/Vol] 232 mg/dL High <200 [facility] Comment on above: Performed By: #### 9 1431, 30295, 866, 899, 496, 6399, 87118 #### [facility] [place] [address] , [address] [place] [address] Adolescent Specialist: Dean Maddox MD Cholesterol in HDL [Mass/Vol] 58 mg/dL Normal > OR = 50 [facility] Comment on above: Performed By: #### 9 1431, 85089, 866, 899, 496, 6399, 25781 #### [facility] [place] [address] Adolescent Specialist: Dean Maddox MD Cholesterol in LDL [Mass/Vol] [...] LDL-C. Antoine GREGG et al. CHOLO. 2013;310(19): 3385-5657 (http://education.[employer]/faq/GAS611) Performed By: #### 9 1431, 46638, 866, 899, 496, 6399, 16230 #### [facility] [place] [address] Adolescent Specialist: Dean Maddox MD Cholesterol.total/Cho lesterol in HDL [Mass ratio] 4.0 {ratio} Normal <5.0 [facility] Comment on above: Performed By: #### 9 1431, 97787, 866, 899, 496, 6399, 69685 #### [facility] [place] [address] Adolescent Specialist: Dean Maddox MD NON HDL CHOLESTEROL 174 mg/dL (calc) High <130 [facility] Comment on above: Result Comment: For patients with diabetes plus 1 major ASCVD risk factor, treating to a non-HDL-C goal of <100 mg/dL (LDL-C of <70 mg/dL) is considered a therapeutic option. Performed By: #### 9 1431, 06302, 866, 899, 496, 6399, 71963 #### [facility] [address], [address] [place] [address] Adolescent Specialist: Dean Maddox MD Triglyceride [Mass/Vol] 167 mg/dL High <150 [facility] Comment on above: Performed By: #### 9 1431, 88662, 866, 899, 496, 6399, 96278 #### [facility] [address], [address] [place] [address] Adolescent Specialist: Dean Maddox MD Lipid 1996 panelon 5 Cholesterol [Mass/Vol] 232 mg/dL High [facility] - 200 mg/dL [facility] Cholesterol in HDL [Mass/Vol] 58 mg/dL > OR = 50 [facility] Cholesterol in LDL [Mass/Vol] 144 mg/dL High mg/dL (calc) [facility] Comment on above: Reference range: <10 0 Desirable range <100 mg/dL for primary prevention; <70 mg/dL for patients with CHD or diabetic patients with > or = 2 CHD risk factors. LDL-C is now calculated using the Antoine-Linden calculation, which is a validated novel method providing better accuracy than the Friedewald equation in the estimation of LDL-C. Antoine SS et al. CHOLO. 2013;310(19): 9970-0044 (http://education.[employer]/faq/LZX766) Cholesterol non HDL [Mass/Vol] 174 mg/dL High [facility] Comment on above: For patients with di abetes plus 1 major ASCVD risk factor, treating to a non-HDL-C goal of <100 mg/dL (LDL-C of <70 mg/dL) is considered a therapeutic option. Cholesterol.total/Cho lesterol in HDL [Mass ratio] 4 {ratio} [facility] Triglyceride [Mass/Vol] 167 mg/dL High [facility] - 150 mg/dL [facility] No Panel Informationon 08-03 [facility] Interpretation and review of laboratory results Abnormal [facility] T4, FREEon 08-03-2024 Free T4 [Mass/Vol] 0.9 ng/dL Normal 0.8-1.8 [facility] Comment on above: Performed By: #### 9 1431, 30603, 866, 899, 496, 6399, 11422 #### [facility] [address], [address] [place] [phone] Adolescent Specialist: Dean Maddox MD T4, Freeon 08-03-2024 Free T4 [Mass/Vol] 0.9 ng/dL 0.8 - 1.8 ng/dL [facility] TSHon 08-03-2024 TSH Qn 3.54 m[IU]/L Normal [facility] Comment on above: Result Comment: Refe rence Range > or = 20 Years 0.40-4.50 Ranges First trimester 0.26-2.66 Second trimester 0.55-2.73 Third trimester 0.43-2.91 Performed By: #### 9 1431, 83919, 866, 899, 496, 4207, 96841 #### [facility] [address], [address] [place] [address] Adolescent Specialist: Dean Maddox MD TSH DL <= 0.005 mIU/L Qnon 0 08-03-2024 TSH Qn 3.54 m[IU]/L mIU/L [facility] Comment on above: Reference Range > or = 20 Years 0.40-4.50 Ranges First trimester 0.26-2.66 Second trimester 0.55-2.73 Third trimester 0.43-2.91 XR KNEES BILATERAL 2 VIEWS E ACH (STANDARD)on 08-02-2024 XR KNEES BILATERAL 2 VIEWS EACH (STANDARD) Normal [facility] Comment on above: Order Comment: Injur y/Trauma or Illness?:Illness/OtherHow long have you had these symptoms (acute/chronic)?:UnknownReason for exam?:Bilateral knee painHistory of cancer?:uSurgeries, chemotherapy, or radiation?:pacemakerType of Exam?:UnknownAdditional signs and symptoms?:none ED Prov Noteon 05-23-2024 ED Prov Note Normal [facility] XR HAND LEFT 3+ VIEWS (STAND ILIA)on 05-23-2024 XR HAND LEFT 3+ VIEWS (STANDARD) Normal [facility] Comment on above: Order Comment: Injur y/Trauma or Illness?:Illness/OtherHow long have you had these symptoms (acute/chronic)?:AcuteReason for exam?:Lt hand pain with swellingHistory of cancer?:uSurgeries, chemotherapy, or radiation?:pacemakerType of Exam?:InitialAdditional signs and symptoms?:Lt hand pain with swelling CBCon 04-29-2024 AUTO NRBC 0.0 % Normal [facility] Comment on above: Performed By: #### 4 [id number] ####[facility] [address] [place], [place] [address] Abbi Choudhary M.D. [id number] AUTO NRBC ABS COUNT 0.00 K/mcL Normal 0.00-0.00 [facility] Comment on above: Performed By: #### 4 5218 ####[facility] [address] [place], [place] [address] Abbi Choudhary M.D. [id number] Erythrocyte distribution width (RBC) [Ratio] 13.4 % Normal 11.6-14.8 [facility] Comment on above: Performed By: #### 4 [id number] ####[facility] [address] [place], [place] [address] Abbi Choudhary M.D. [id number] Hematocrit (Bld) [Volume fraction] 29.3 % Low 36.0-46.0 [facility] Comment on above: Performed By: #### 4 5218 ####[facility] [address] [place], [place] [address] Abbi Choudhary M.D. [id number] Hemoglobin (Bld) [Mass/Vol] 9.6 g/dL Low 12.0-16.0 [facility] Comment on above: Performed By: #### 4 5218 ####[facility] [address] [place], [place] [address] Abbi Choudhary M.D. [id number] MCH (RBC) [Entitic mass] 31.0 pg Normal 26.0-34.0 [facility] Comment on above: Performed By: #### 4 5218 ####[facility] [address] [place], [place] [address] Abbi Choudhary M.D. [id number] MCV (RBC) [Entitic vol] 94.5 fL Normal 80.0-100.0 [facility] Comment on above: Performed By: #### 4 5218 ####[facility] [address] [place], [place] [address] Abbi Choudhary M.D. [id number] MEAN CORPUSCULAR HEMOGLOBIN CONC 32.8 g/dL Normal 31.0-37.0 [facility] Comment on above: Performed By: #### 4 [id number] ####[facility] [address] [place], [place] [address] Abbi Choudhary M.D. [id number] Platelet mean volume (Bld) [Entitic vol] 9.7 fL Normal 9.4-12.4 [facility] Comment on above: Performed By: #### 4 [id number] ####[facility] [address] [place], [place] [address] Abbi Choudhary M.D. [id number] Platelets (Bld) [#/Vol] 289 10*3/uL Normal 150-400 [facility] Comment on above: Performed By: #### 4 [id number] ####[facility] [address] [place], [place] [address] Abbi Choudhary M.D. [id number] RBC (Bld) [#/Vol] 3.10 10*6/uL Low 4.00-5.20 [facility] Comment on above: Performed By: #### 4 [id number] ####[facility] [address] [place], [place] [address] Abbi Choudhary M.D. [id number] WBC (Bld) [#/Vol] 6.78 10*3/uL Normal 4.50-11.00 [facility] Comment on above: Performed By: #### 4 5218 ####[facility] [address] [place], [place] [address] Abbi Choudhary M.D. [id number] CBC panel Auto (Bld)on 04-29 Erythrocyte distribution width (RBC) [Entitic vol] 13.4 % 11.6 - 14.8 % [facility] Hematocrit (Bld) [Volume fraction] 29.3 % Low 36.0 - 46.0 % [facility] Hemoglobin (Bld) [Mass/Vol] 9.6 g/dL Low 12.0 - 16.0 g/dL [facility] Interpretation and review of laboratory results Abnormal [facility] MCH (RBC) [Entitic mass] 31 pg 26.0 - 34.0 pg [facility] MCHC (RBC) [Mass/Vol] 32.8 g/dL 31.0 - 37.0 g/dL [facility] MCV (RBC) [Entitic vol] 94.5 fL 80.0 - 100.0 fL [facility] Nucleated RBC (Bld) [#/Vol] 0 10*3/uL [facility] Nucleated RBC/100 WBC (Bld) [Ratio] 0 % [facility] Platelet mean volume (Bld) [Entitic vol] 9.7 fL 9.4 - 12.4 fL [facility] Platelets (Bld) [#/Vol] 289 10*3/uL [facility] RBC (Bld) [#/Vol] 3.1 10*6/uL Low [facility] alth WBC (Bld) [#/Vol] 6.78 10*3/uL [facility] Disch Summon 04-29-2024 Disch Summ Normal [facility] Glucose (Bld) [Mass/Vol]on 1 06-30-2023 Glucose [Mass/Vol] 240 mg/dL High 65 - 99 mg/dL [facility] Interpretation and review of laboratory results Abnormal [facility] Glucose [Mass/Vol] 340 mg/dL High 65 - 99 mg/dL [facility] Interpretation and review of laboratory results Abnormal [facility] POC GLUCOSE - [facility] 024 Glucose [Mass/Vol] 240 mg/dL High 65-99 [facility] Comment on above: Performed By: #### 4 6932 ####[facility] [address] [place], [place] [address] Abbi Choudhary M.D. [id number] Glucose [Mass/Vol] 340 mg/dL High 65-99 [facility] Comment on above: Performed By: #### 4 6932 ####[facility] [address] [place], [place] [address] Abbi Choudhary M.D. [id number] RENAL FUNCTION PANELon 04-29 Albumin [Mass/Vol] 3.2 g/dL Normal 3.2-5.2 [facility] Comment on above: Order Comment: [facility] has implemented the eGFR calculation approach that does not have a coefficient for race that conforms to the NKF-ASN Task Force Recommendations. Performed By: #### 4 6449 ####[facility] [address] [place], [place] [address] Abbi Choudhary M.D. [id number] Anion gap [Moles/Vol] 15 mmol/L Normal 10-20 [facility] Comment on above: Order Comment: [facility] has implemented the eGFR calculation approach that does not have a coefficient for race that conforms to the NKF-ASN Task Force Recommendations. Performed By: #### 4 6449 ####[facility] [address] [place], [place] [address] Abbi Choudhary M.D. [id number] Calcium [Mass/Vol] 8.5 mg/dL Normal 8.4-10.2 [facility] Comment on above: Order Comment: [facility] has implemented the eGFR calculation approach that does not have a coefficient for race that conforms to the NKF-ASN Task Force Recommendations. Performed By: #### 4 6449 ####[facility] [address] [place], [place] [address] Abbi Choudhary M.D. [id number] Chloride [Moles/Vol] 104 mmol/L Normal 98-108 [facility] Comment on above: Order Comment: [facility] has implemented the eGFR calculation approach that does not have a coefficient for race that conforms to the NKF-ASN Task Force Recommendations. Performed By: #### 4 6449 ####[facility] [address] [place], [place] [address] Abbi Choudhary M.D. [id number] Creatinine [Mass/Vol] 1.72 mg/dL High 0.40-1.10 [facility] Comment on above: Order Comment: [facility] has implemented the eGFR calculation approach that does not have a coefficient for race that conforms to the NKF-ASN Task Force Recommendations. Performed By: #### 4 6449 ####[facility] [address] [place], [place] [address] Abbi Choudhary M.D. [id number] EGFR 37 mL/min/1.73 m2 Low >=60 [facility] Comment on above: Order Comment: [facility] has implemented the eGFR calculation approach that does not have a coefficient for race that conforms to the NKF-ASN Task Force Recommendations. Result Comment: Lorie mated GFR was calculated using the 2020 CKD-EPI creatinine equation. Performed By: #### 4 6449 ####[facility] [address] [place], [place] [address] Abbi Choudhary M.D. [id number] Glucose [Mass/Vol] 358 mg/dL High 65-99 [facility] Comment on above: Order Comment: [facility] has implemented the eGFR calculation approach that does not have a coefficient for race that conforms to the NKF-ASN Task Force Recommendations. Performed By: #### 4 6449 ####[facility] [address] [place], [place] [address] Abbi Choudhary M.D. [id number] HCO3 (Bld) [Moles/Vol] 23 mmol/L Normal 21-32 [facility] Comment on above: Order Comment: [facility] has implemented the eGFR calculation approach that does not have a coefficient for race that conforms to the NKF-ASN Task Force Recommendations. Performed By: #### 4 6449 ####[facility] [address] [place], [place] [address] Abbi Choudhary M.D. [id number] Phosphate [Mass/Vol] 4.0 mg/dL Normal 2.7-4.5 [facility] Comment on above: Order Comment: [facility] has implemented the eGFR calculation approach that does not have a coefficient for race that conforms to the NKF-ASN Task Force Recommendations. Performed By: #### 4 6449 ####[facility] [address] [place], [place] [address] Abbi Choudhary M.D. [id number] Potassium [Moles/Vol] 4.5 mmol/L Normal 3.5-5.1 [facility] Comment on above: Order Comment: [facility] has implemented the eGFR calculation approach that does not have a coefficient for race that conforms to the NKF-ASN Task Force Recommendations. Performed By: #### 4 6449 ####[facility] [address] [place], [place] [address] Abib Choudhary M.D. [id number] Sodium [Moles/Vol] 137 mmol/L Normal 135-145 [facility] Comment on above: Order Comment: [facility] has implemented the eGFR calculation approach that does not have a coefficient for race that conforms to the NKF-ASN Task Force Recommendations. Performed By: #### 4 6449 ####[facility] [address] [place], [place] [address] Abbi Choudhary M.D. [id number] Urea nitrogen [Mass/Vol] 30 mg/dL High 8-25 [facility] Comment on above: Order Comment: [facility] has implemented the eGFR calculation approach that does not have a coefficient for race that conforms to the NKF-ASN Task Force Recommendations. Performed By: #### 4 6449 ####[facility] [address] [place], [place] [address] Abbi Choudhary M.D. [id number] Urea nitrogen/Creatinine [Mass ratio] 17.4 mg/mg Normal 10.0-20.0 [facility] Comment on above: Order Comment: [facility] has implemented the eGFR calculation approach that does not have a coefficient for race that conforms to the NKF-ASN Task Force Recommendations. Performed By: #### 4 6449 ####[facility] [address] [place], [place] [address] Abbi Choudhary M.D. [id number] Renal function 2000 [facility] 04-29-2024 Albumin [Mass/Vol] 3.2 g/dL 3.2 - 5.2 g/dL [facility] Anion gap [Moles/Vol] 15 mmol/L 10 - 2 0 mmol/L [facility] Calcium [Mass/Vol] 8.5 mg/dL 8.4 - 10. 2 mg/dL [facility] Chloride [Moles/Vol] 104 mmol/L 98 - 10 8 mmol/L [facility] Creatinine [Mass/Vol] 1.72 mg/dL High 0.40 - 1.10 mg/dL [facility] GFR/1.73 sq M.predicted CKD-EPI (S/P/Bld) [Vol rate/Area] 37 Low - PINF [facility] Comment on above: Estimated GFR was ca lculated using the 2020 CKD-EPI creatinine equation. Glucose [Mass/Vol] 358 mg/dL High 65 - 99 mg/dL [facility] HCO3 [Moles/Vol] 23 mmol/L 21 - 32 mmol/L [facility] Interpretation and review of laboratory results Abnormal [facility] Phosphate [Mass/Vol] 4 mg/dL 2.7 - 4 .5 mg/dL [facility] Potassium [Moles/Vol] 4.5 mmol/L 3.5 - 5.1 mmol/L [facility] Sodium [Moles/Vol] 137 mmol/L 135 - 145 mmol/L [facility] Urea nitrogen [Mass/Vol] 30 mg/dL High 8 - 25 mg/dL [facility] Urea nitrogen/Creatinine [Mass ratio] 17.4 mg/mg 10.0 - 20.0 [facility] has implemented the eGFR calculation approach that does not have a coefficient for race that conforms to the NKF-ASN Task Force Recommendations. [facility] CBCon 04-28-2024 AUTO NRBC 0.0 % Normal [facility] Comment on above: Performed By: #### 4 5218 ####[facility] [address] [place], [place] [address] Abbi Choudhary M.D. [id number] AUTO NRBC ABS COUNT 0.00 K/mcL Normal 0.00-0.00 [facility] Comment on above: Performed By: #### 4 5218 ####[facility] [address] [place], [place] [address] Abbi Choudhary M.D. [id number] Erythrocyte distribution width (RBC) [Ratio] 13.2 % Normal 11.6-14.8 [facility] Comment on above: Performed By: #### 4 5218 ####[facility] [address] [place], [place] [address] Abbi Choudhary M.D. [id number] Hematocrit (Bld) [Volume fraction] 27.7 % Low 36.0-46.0 [facility] Comment on above: Performed By: #### 4 5218 ####[facility] [address] [place], [place] [address] Abbi Choudhary M.D. [id number] Hemoglobin (Bld) [Mass/Vol] 9.4 g/dL Low 12.0-16.0 [facility] Comment on above: Performed By: #### 4 5218 ####[facility] [address] [place], [place] [address] Abbi Choudhary M.D. [id number] MCH (RBC) [Entitic mass] 31.9 pg Normal 26.0-34.0 [facility] Comment on above: Performed By: #### 4 5218 ####[facility] [address] [place], [place] [address] Abbi Choudhary M.D. [id number] MCV (RBC) [Entitic vol] 93.9 fL Normal 80.0-100.0 [facility] Comment on above: Performed By: #### 4 5218 ####[facility] [address] [place], [place] [address] Abbi Choudhary M.D. [id number] MEAN CORPUSCULAR HEMOGLOBIN CONC 33.9 g/dL Normal 31.0-37.0 [facility] Comment on above: Performed By: #### 4 5218 ####[facility] [address] [place], [place] [address] Abbi Choudhary M.D. [id number] Platelet mean volume (Bld) [Entitic vol] 9.7 fL Normal 9.4-12.4 [facility] Comment on above: Performed By: #### 4 5218 ####[facility] [address] [place], [place] [address] Abbi Choudhary M.D. [id number] Platelets (Bld) [#/Vol] 277 10*3/uL Normal 150-400 [facility] Comment on above: Performed By: #### 4 5218 ####[facility] [address] [place], [place] [address] Abbi Choudhary M.D. [id number] RBC (Bld) [#/Vol] 2.95 10*6/uL Low 4.00-5.20 [facility] Comment on above: Performed By: #### 4 5218 ####[facility] [address] [place], [place] [address] Abbi Choudhary M.D. [id number] WBC (Bld) [#/Vol] 8.19 10*3/uL Normal 4.50-11.00 [facility] Comment on above: Performed By: #### 4 5218 ####[facility] [address] [place] [address] Abbi Choudhary M.D. [id number] CBC panel Auto (Bld)on 04-28 Erythrocyte distribution width (RBC) [Entitic vol] 13.2 % 11.6 - 14.8 % [facility] Hematocrit (Bld) [Volume fraction] 27.7 % Low 36.0 - 46.0 % [facility] Hemoglobin (Bld) [Mass/Vol] 9.4 g/dL Low 12.0 - 16.0 g/dL [facility] Interpretation and review of laboratory results Abnormal [facility] MCH (RBC) [Entitic mass] 31.9 pg 26.0 - 34.0 pg [facility] MCHC (RBC) [Mass/Vol] 33.9 g/dL 31.0 - 37.0 g/dL [facility] MCV (RBC) [Entitic vol] 93.9 fL 80.0 - 100.0 fL [facility] Nucleated RBC (Bld) [#/Vol] 0 10*3/uL [facility] Nucleated RBC/100 WBC (Bld) [Ratio] 0 % [facility] Platelet mean volume (Bld) [Entitic vol] 9.7 fL 9.4 - 12.4 fL [facility] Platelets (Bld) [#/Vol] 277 10*3/uL [facility] RBC (Bld) [#/Vol] 2.95 10*6/uL Low [facility] WBC (Bld) [#/Vol] 8.19 10*3/uL [facility] Glucose (Bld) [Mass/Vol]on 06-29-2023 Glucose [Mass/Vol] 236 mg/dL High 65 - 99 mg/dL [facility] Interpretation and review of laboratory results Abnormal [facility] Glucose [Mass/Vol] 282 mg/dL High 65 - 99 mg/dL [facility] [facility] Interpretation and review of laboratory results Abnormal [facility] Glucose [Mass/Vol] 267 mg/dL High 65 - 99 mg/dL [facility] Interpretation and review of laboratory results Abnormal [facility] Glucose [Mass/Vol] 315 mg/dL High 65 - 99 mg/dL [facility] Interpretation and review of laboratory results Abnormal [facility] POC GLUCOSE - RALSon 024 Glucose [Mass/Vol] 236 mg/dL High [address] [place] [address] Comment on above: Performed By: #### 4 [id number] ####[facility] [address] [place], [place] [address] Abbi Choudhary M.D. [id number] Glucose [Mass/Vol] 282 mg/dL [address] Comment on above: Performed By: #### 4 [id number] ####[facility] [address] [place], [place] [address] Abbi Choudhary M.D. [id number] Glucose [Mass/Vol] 267 mg/dL [address] Comment on above: Performed By: #### 4 [id number] ####[facility] [address] [place], [place] [address] Abbi Choudhary M.D. [id number] Glucose [Mass/Vol] 315 mg/dL [address] Comment on above: Performed By: #### 4 [id number] ####[facility] [address] [place], [place] [address] Abbi Choudhary M.D. [id number] RENAL FUNCTION PANEL 04-28 Albumin [Mass/Vol] 3.1 g/dL Low 3.2-5.2 [facility] Comment on above: Order Comment: [facility] has implemented the eGFR calculation approach that does not have a coefficient for race that conforms to the NKF-ASN Task Force Recommendations. Performed By: #### 4 [id number] ####[facility] [address] [place], [place] [address] Abbi Choudhary M.D. [id number] Anion gap [Moles/Vol] 15 mmol/L Normal - [facility] Comment on above: Order Comment: [facility] has implemented the eGFR calculation approach that does not have a coefficient for race that conforms to the NKF-ASN Task Force Recommendations. Performed By: #### 4 [id number] ####[facility] [address] [place], [place] [address] Abbi Choudhary M.D. [id number] Calcium [Mass/Vol] 8.7 mg/dL Normal 8.4-10.2 [facility] Comment on above: Order Comment: [facility] has implemented the eGFR calculation approach that does not have a coefficient for race that conforms to the NKF-ASN Task Force Recommendations. Performed By: #### 4 [id number] ####[facility] [address] [place], [place] [address] Abbi Choudhary M.D. [id number] Chloride [Moles/Vol] 102 mmol/L Normal 98-108 [facility] Comment on above: Order Comment: [facility] has implemented the eGFR calculation approach that does not have a coefficient for race that conforms to the NKF-ASN Task Force Recommendations. Performed By: #### 4 [id number] ####[facility] [address] [place], [place] [address] Abbi Choudhary M.D. [id number] Creatinine [Mass/Vol] 1.68 mg/dL High 0.40-1.10 [facility] Comment on above: Order Comment: [facility] has implemented the eGFR calculation approach that does not have a coefficient for race that conforms to the NKF-ASN Task Force Recommendations. Performed By: #### 4 [id number] ####[facility] [address] [place], [place] [address] Abbi Choudhary M.D. [id number] EGFR 38 mL/min/1.73 m2 Low >=60 [facility] Comment on above: Order Comment: [facility] has implemented the eGFR calculation approach that does not have a coefficient for race that conforms to the NKF-ASN Task Force Recommendations. Result Comment: Lorie mated GFR was calculated using the 2020 CKD-EPI creatinine equation. Performed By: #### 4 [id number] ####[facility] [address] [place], [place] [address] Abbi Choudhary M.D. [id number] Glucose [Mass/Vol] 408 mg/dL Off scale high 65-99 [facility] Comment on above: Order Comment: [facility] has implemented the eGFR calculation approach that does not have a coefficient for race that conforms to the NKF-ASN Task Force Recommendations. Performed By: #### 4 [id number] ####[facility] [address] [place], [place] [address] Abbi Choudhary M.D. [id number] HCO3 (Bld) [Moles/Vol] 24 mmol/L Normal 21-32 [facility] Comment on above: Order Comment: [facility] has implemented the eGFR calculation approach that does not have a coefficient for race that conforms to the NKF-ASN Task Force Recommendations. Performed By: #### 4 [id number] ####[facility] [address] [place], [place] [address] Abbi Choudhary M.D. [id number] Phosphate [Mass/Vol] 3.8 mg/dL Normal 2.7-4.5 [facility] Comment on above: Order Comment: [facility] has implemented the eGFR calculation approach that does not have a coefficient for race that conforms to the NKF-ASN Task Force Recommendations. Performed By: #### 4 [id number] ####[facility] [address] [place], [place] [address] Abbi Choudhary M.D. [id number] Potassium [Moles/Vol] 4.5 mmol/L Normal 3.5-5.1 [facility] Comment on above: Order Comment: [facility] has implemented the eGFR calculation approach that does not have a coefficient for race that conforms to the NKF-ASN Task Force Recommendations. Performed By: #### 4 [id number] ####[facility] [address] [place], [place] [address] Abbi Choudhary M.D. [id number] Sodium [Moles/Vol] 136 mmol/L Normal 135-145 [facility] Comment on above: Order Comment: [facility] has implemented the eGFR calculation approach that does not have a coefficient for race that conforms to the NKF-ASN Task Force Recommendations. Performed By: #### 4 [id number] ####[facility] [address] [place], [place] [address] Abbi Choudhary M.D. [id number] Urea nitrogen [Mass/Vol] 27 mg/dL High 8-25 [facility] Comment on above: Order Comment: [facility] has implemented the eGFR calculation approach that does not have a coefficient for race that conforms to the NKF-ASN Task Force Recommendations. Performed By: #### 4 [id number] ####[facility] [address] [place], [place] [address] Abbi Choudhary M.D. [id number] Urea nitrogen/Creatinine [Mass ratio] 16.1 mg/mg Normal 10.0-20.0 [facility] Comment on above: Order Comment: [facility] has implemented the eGFR calculation approach that does not have a coefficient for race that conforms to the NKF-ASN Task Force Recommendations. Performed By: #### 4 [id number] ####[facility] [address] [place], [place] [address] Abbi Choudhary M.D. [id number] Renal function 2000 panelOrd ered By: Navneet Parr on 04-28-2024 Albumin [Mass/Vol] 3.1 g/dL Low 3.2 - 5.2 g/dL [facility] Anion gap [Moles/Vol] 15 mmol/L 10 - 2 0 mmol/L [facility] Calcium [Mass/Vol] 8.7 mg/dL 8.4 - 10. 2 mg/dL [facility] Chloride [Moles/Vol] 102 mmol/L 98 - 10 8 mmol/L [facility] Creatinine [Mass/Vol] 1.68 mg/dL High 0.40 - 1.10 mg/dL [facility] GFR/1.73 sq M.predicted CKD-EPI (S/P/Bld) [Vol rate/Area] 38 Low - PINF [facility] Comment on above: Estimated GFR was ca lculated using the 2020 CKD-EPI creatinine equation. Glucose [Mass/Vol] 408 mg/dL Critically high 65 - 9 9 mg/dL [facility] HCO3 [Moles/Vol] 24 mmol/L 21 - 32 mmol/L [facility] Interpretation and review of laboratory results Abnormal [facility] Phosphate [Mass/Vol] 3.8 mg/dL 2.7 - 4 .5 mg/dL [facility] Potassium [Moles/Vol] 4.5 mmol/L 3.5 - 5.1 mmol/L [facility] Sodium [Moles/Vol] 136 mmol/L 135 - 145 mmol/L [facility] Urea nitrogen [Mass/Vol] 27 mg/dL High 8 - 25 mg/dL [facility] Urea nitrogen/Creatinine [Mass ratio] 16.1 mg/mg 10.0 - 20.0 [facility] has implemented the eGFR calculation approach that does not have a coefficient for race that conforms to the NKF-ASN Task Force Recommendations. [facility] CBCon 04-27-2024 AUTO NRBC 0.0 % Normal [facility] Comment on above: Performed By: #### [id number] ####[facility] [address] [place] [address] Abbi Choudhary M.D. [id number] AUTO NRBC ABS COUNT 0.00 K/mcL Normal 0.00-0.00 [facility] Comment on above: Performed By: #### 4 [id number] ####[facility] [address] [place] [address] Abbi Choudhary M.D. [id number] Erythrocyte distribution width (RBC) [Ratio] 13.0 % Normal 11.6-14.8 [facility] Comment on above: Performed By: #### 4 [id number] ####[facility] [address] [place], [place] [address] Abbi Choudhary M.D. [id number] Hematocrit (Bld) [Volume fraction] 33.0 % Low 36.0-46.0 [facility] Comment on above: Performed By: #### 4 [id number] ####[facility] [address] [place] [address] Abbi Choudhary M.D. [id number] Hemoglobin (Bld) [Mass/Vol] 11.3 g/dL Low 12.0-16.0 [facility] Comment on above: Performed By: #### 4 [id number] ####[facility] [address] [place], [place] [address] Abbi Choudhary M.D. [id number] MCH (RBC) [Entitic mass] 31.1 pg Normal 26.0-34.0 [facility] Comment on above: Performed By: #### 4 [id number] ####[facility] [address] [place], [place] [address] Abbi Choudhary M.D. [id number] MCV (RBC) [Entitic vol] 90.9 fL Normal 80.0-100.0 [facility] Comment on above: Performed By: #### 4 [id number] ####[facility] [address] [place], [place] [address] Abbi Choudhary M.D. [id number] MEAN CORPUSCULAR HEMOGLOBIN CONC 34.2 g/dL Normal 31.0-37.0 [facility] Comment on above: Performed By: #### 4 [id number] ####[facility] [address] [place], [place] [address] Abbi Choudhary M.D. [id number] Platelet mean volume (Bld) [Entitic vol] 9.6 fL Normal 9.4-12.4 [facility] Comment on above: Performed By: #### 4 [id number] ####[facility] [address] [place] [address] Abbi Choudhary M.D. [id number] Platelets (Bld) [#/Vol] 287 10*3/uL Normal 150-400 [facility] Comment on above: Performed By: #### 4 [id number] ####[facility] [address] [place], [place] [address] Abbi Choudhary M.D. [id number] RBC (Bld) [#/Vol] 3.63 10*6/uL Low 4.00-5.20 [facility] Comment on above: Performed By: #### 4 [id number] ####[facility] [address] [place], [place] [address] Abbi Choudhary M.D. [id number] WBC (Bld) [#/Vol] 9.85 10*3/uL Normal 4.50-11.00 [facility] Comment on above: Performed By: #### 4 [id number] ####[facility] [address] [place], [place] [address] Abbi Choudhary M.D. [id number] CBC panel Auto (Bld)on 04-27 Erythrocyte distribution width (RBC) [Entitic vol] 13 % 11.6 - 14.8 % [facility] Hematocrit (Bld) [Volume fraction] 33 % Low 36.0 - 46.0 % [facility] Hemoglobin (Bld) [Mass/Vol] 11.3 g/dL Low 12.0 - 16.0 g/dL [facility] Interpretation and review of laboratory results Abnormal [facility] MCH (RBC) [Entitic mass] 31.1 pg 26.0 - 34.0 pg [facility] MCHC (RBC) [Mass/Vol] 34.2 g/dL 31.0 - 37.0 g/dL [facility] MCV (RBC) [Entitic vol] 90.9 fL 80.0 - 100.0 fL [facility] Nucleated RBC (Bld) [#/Vol] 0 10*3/uL [facility] Nucleated RBC/100 WBC (Bld) [Ratio] 0 % [facility] Platelet mean volume (Bld) [Entitic vol] 9.6 fL 9.4 - 12.4 fL [facility] Platelets (Bld) [#/Vol] 287 10*3/uL [facility] RBC (Bld) [#/Vol] 3.63 10*6/uL Low [facility] WBC (Bld) [#/Vol] 9.85 10*3/uL [facility] eah [facility] CONSULTon 04-27-2024 CONSULT Normal [facility] Glucose (Bld) [Mass/Vol]on 1 06-28-2023 Glucose [Mass/Vol] 241 mg/dL High 65 - 99 mg/dL [facility] Interpretation and review of laboratory results Abnormal [facility] Glucose [Mass/Vol] 191 mg/dL High 65 - 99 mg/dL [facility] Interpretation and review of laboratory results Abnormal [facility] Glucose [Mass/Vol] 184 mg/dL High 65 - 99 mg/dL [facility] Interpretation and review of laboratory results Abnormal [facility] Glucose [Mass/Vol] 315 mg/dL High 65 - 99 mg/dL [facility] Interpretation and review of laboratory results Abnormal [facility] Glucose [Mass/Vol] 355 mg/dL High 65 - 99 mg/dL [facility] Interpretation and review of laboratory results Abnormal [facility] Glucose [Mass/Vol] 336 mg/dL High 65 - 99 mg/dL [facility] Interpretation and review of laboratory results Abnormal [facility] Gold Topon 04-27-2024 Extra Tube Hold for add-ons. [facility] Comment on above: Auto resulted. [facility] POC GLUCOSE - [facility] 024 Glucose [Mass/Vol] 241 mg/dL High [address] [place] [address] Comment on above: Performed By: #### 4 [id number] ####[facility] [address] [place], [place] [address] Abbi Choudhary M.D. [id number] Glucose [Mass/Vol] 191 mg/dL [address] Comment on above: Performed By: #### 4 [id number] ####[facility] [address] [place], [place] [address] Abbi Choudhary M.D. [id number] Glucose [Mass/Vol] 184 mg/dL [address] Comment on above: Performed By: #### 4 [id number] ####[facility] [address] [place], [place] [address] Abbi Choudhary M.D. [id number] Glucose [Mass/Vol] 315 mg/dL [address] Comment on above: Performed By: #### 4 [id number] ####[facility] [address] [place], [place] [address] Abbi Choudhary M.D. [id number] Glucose [Mass/Vol] 355 mg/dL [address] Comment on above: Performed By: #### 4 [id number] ####[facility] [address] [place], [place] [address] Abbi Choudhary M.D. [id number] Glucose [Mass/Vol] 336 mg/dL [address] Comment on above: Performed By: #### 4 [id number] ####[facility] [address] [place], [place] [address] Abbi Choudhary M.D. [id number] RENAL FUNCTION PANELon 04-27 Albumin [Mass/Vol] 3.7 g/dL Normal 3.2-5.2 [facility] Comment on above: Order Comment: [facility] has implemented the eGFR calculation approach that does not have a coefficient for race that conforms to the NKF-ASN Task Force Recommendations. Performed By: #### 4 [id number] ####[facility] [address] [place], [place] [address] Abbi Choudhary M.D. [id number] Anion gap [Moles/Vol] 17 mmol/L Normal 10-20 [facility] Comment on above: Order Comment: [facility] has implemented the eGFR calculation approach that does not have a coefficient for race that conforms to the NKF-ASN Task Force Recommendations. Performed By: #### 4 [id number] ####[facility] [address] [place], [place] [address] Abbi Choudhary M.D. [id number] Calcium [Mass/Vol] 8.7 mg/dL Normal 8.4-10.2 [facility] Comment on above: Order Comment: [facility] has implemented the eGFR calculation approach that does not have a coefficient for race that conforms to the NKF-ASN Task Force Recommendations. Performed By: #### 4 [id number] ####[facility] [address] [place], [place] [address] Abbi Choudhary M.D. [id number] Chloride [Moles/Vol] 99 mmol/L Normal 98-108 [facility] Comment on above: Order Comment: [facility] has implemented the eGFR calculation approach that does not have a coefficient for race that conforms to the NKF-ASN Task Force Recommendations. Performed By: #### 4 [id number] ####[facility] [address] [place], [place] [address] Abbi Choudhary M.D. [id number] Creatinine [Mass/Vol] 1.34 mg/dL High 0.40-1.10 [facility] Comment on above: Order Comment: [facility] has implemented the eGFR calculation approach that does not have a coefficient for race that conforms to the NKF-ASN Task Force Recommendations. Performed By: #### 4 [id number] ####[facility] [address] [place], [place] [address] Abbi Choudhary M.D. [id number] EGFR 49 mL/min/1.73 m2 Low >=60 [facility] Comment on above: Order Comment: [facility] has implemented the eGFR calculation approach that does not have a coefficient for race that conforms to the NKF-ASN Task Force Recommendations. Result Comment: Lorie mated GFR was calculated using the 2020 CKD-EPI creatinine equation. Performed By: #### 4 [id number] ####[facility] [address] [place], [place] [address] Abbi Choudhary M.D. [id number] Glucose [Mass/Vol] 361 mg/dL High 65-99 [facility] Comment on above: Order Comment: [facility] has implemented the eGFR calculation approach that does not have a coefficient for race that conforms to the NKF-ASN Task Force Recommendations. Performed By: #### 4 [id number] ####[facility] [address] [place], [place] [address] Abbi Choudhary M.D. [id number] HCO3 (Bld) [Moles/Vol] 23 mmol/L Normal 21-32 [facility] Comment on above: Order Comment: [facility] has implemented the eGFR calculation approach that does not have a coefficient for race that conforms to the NKF-ASN Task Force Recommendations. Performed By: #### 4 [id number] ####[facility] [address] [place], [place] [address] Abbi Choudhary M.D. [id number] Phosphate [Mass/Vol] 2.4 mg/dL Low 2.7-4.5 [facility] Comment on above: Order Comment: [facility] has implemented the eGFR calculation approach that does not have a coefficient for race that conforms to the NKF-ASN Task Force Recommendations. Performed By: #### 4 [id number] ####[facility] [address] [place], [place] [address] Abbi Choudhary M.D. [id number] Potassium [Moles/Vol] 4.3 mmol/L Normal 3.5-5.1 [facility] Comment on above: Order Comment: [facility] has implemented the eGFR calculation approach that does not have a coefficient for race that conforms to the NKF-ASN Task Force Recommendations. Performed By: #### 4 [id number] ####[facility] [address] [place], [place] [address] Abbi Choudhary M.D. [id number] Sodium [Moles/Vol] 135 mmol/L Normal 135-145 [facility] Comment on above: Order Comment: [facility] has implemented the eGFR calculation approach that does not have a coefficient for race that conforms to the NKF-ASN Task Force Recommendations. Performed By: #### 4 [id number] ####[facility] [address] [place], [place] [address] Abbi Choudhary M.D. [id number] Urea nitrogen [Mass/Vol] 26 mg/dL High 8-25 [facility] Comment on above: Order Comment: [facility] has implemented the eGFR calculation approach that does not have a coefficient for race that conforms to the NKF-ASN Task Force Recommendations. Performed By: #### 4 [id number] #### LAB [address] [place], [place] [address] Abbi Choudhary M.D. [id number] Urea nitrogen/Creatinine [Mass ratio] 19.4 mg/mg Normal 10.0-20.0 [facility] Comment on above: Order Comment: [facility] has implemented the eGFR calculation approach that does not have a coefficient for race that conforms to the NKF-ASN Task Force Recommendations. Performed By: #### 4 [id number] #### LAB [address] [place], [place] [address] Abbi Choudhary M.D. [id number] [facility] Albumin [Mass/Vol] 3.7 g/dL 3.2 - 5.2 g/dL [facility] Anion gap [Moles/Vol] 17 mmol/L 10 - 2 0 mmol/L [facility] Calcium [Mass/Vol] 8.7 mg/dL 8.4 - 10. 2 mg/dL [facility] Chloride [Moles/Vol] 99 mmol/L 98 - 10 8 mmol/L [facility] Creatinine [Mass/Vol] 1.34 mg/dL High 0.40 - 1.10 mg/dL [facility] GFR/1.73 sq M.predicted CKD-EPI (S/P/Bld) [Vol rate/Area] 49 Low - PINF [facility] Comment on above: Estimated GFR was ca lculated using the 2020 CKD-EPI creatinine equation. Glucose [Mass/Vol] 361 mg/dL High 65 - 99 mg/dL [facility] HCO3 [Moles/Vol] 23 mmol/L 21 - 32 mmol/L [facility] Interpretation and review of laboratory results Abnormal [facility] Phosphate [Mass/Vol] 2.4 mg/dL Low 2.7 - 4 .5 mg/dL [facility] Potassium [Moles/Vol] 4.3 mmol/L 3.5 - 5.1 mmol/L [facility] Sodium [Moles/Vol] 135 mmol/L 135 - 145 mmol/L [facility] Urea nitrogen [Mass/Vol] 26 mg/dL High 8 - 25 mg/dL [facility] Urea nitrogen/Creatinine [Mass ratio] 19.4 mg/mg 10.0 - 20.0 [facility] has implemented the eGFR calculation approach that does not have a coefficient for race that conforms to the NKF-ASN Task Force Recommendations. [facility] BASIC METABOLIC PANELon 12-0 -2023 Anion gap [Moles/Vol] 19 mmol/L Normal 10-20 [facility] Comment on above: Order Comment: [facility] has implemented the eGFR calculation approach that does not have a coefficient for race that conforms to the NKF-ASN Task Force Recommendations. Performed By: #### [id number] ####[facility] [address] [place], [place] [address] Abbi Choudhary M.D. [id number] Calcium [Mass/Vol] 8.9 mg/dL Normal 8.4-10.2 [facility] Comment on above: Order Comment: [facility] has implemented the eGFR calculation approach that does not have a coefficient for race that conforms to the NKF-ASN Task Force Recommendations. Performed By: #### [id number] ####[facility] 1000 [place], [place] [address] Abbi Choudhary M.D. [id number] Chloride [Moles/Vol] 99 mmol/L Normal 98-108 [facility] Comment on above: Order Comment: [facility] has implemented the eGFR calculation approach that does not have a coefficient for race that conforms to the NKF-ASN Task Force Recommendations. Performed By: #### 4 [id number] ####[facility] [address] [place], [place] [address] Abbi Choudhary M.D. [id number] Creatinine [Mass/Vol] 1.66 mg/dL High 0.40-1.10 [facility] Comment on above: Order Comment: [facility] has implemented the eGFR calculation approach that does not have a coefficient for race that conforms to the NKF-ASN Task Force Recommendations. Performed By: #### 4 [id number] ####[facility] [address] [place], [place] [address] Abbi Choudhary M.D. [id number] EGFR 38 mL/min/1.73 m2 Low >=60 [facility] Comment on above: Order Comment: [facility] has implemented the eGFR calculation approach that does not have a coefficient for race that conforms to the NKF-ASN Task Force Recommendations. Result Comment: Lorie mated GFR was calculated using the 2020 CKD-EPI creatinine equation. Performed By: #### 4 [id number] ####[facility] [address] [place] [address] Abbi Choudhary M.D. [id number] Glucose [Mass/Vol] 293 mg/dL High 65-99 [facility] Comment on above: Order Comment: [facility] has implemented the eGFR calculation approach that does not have a coefficient for race that conforms to the NKF-ASN Task Force Recommendations. Performed By: #### 4 [id number] ####[facility] [address] [place], [place] [address] Abbi Choudhary M.D. [id number] HCO3 (Bld) [Moles/Vol] 24 mmol/L Normal 21-32 [facility] Comment on above: Order Comment: [facility] has implemented the eGFR calculation approach that does not have a coefficient for race that conforms to the NKF-ASN Task Force Recommendations. Performed By: #### 4 [id number] ####[facility] [address] [place], [place] [address] Abbi Choudhary M.D. [id number] Potassium [Moles/Vol] 4.3 mmol/L Normal 3.5-5.1 [facility] Comment on above: Order Comment: [facility] has implemented the eGFR calculation approach that does not have a coefficient for race that conforms to the NKF-ASN Task Force Recommendations. Performed By: #### 4 [id number] ####[facility] [address] [place], [place] [address] Abbi Choudhary M.D. [id number] Sodium [Moles/Vol] 138 mmol/L Normal 135-145 [facility] Comment on above: Order Comment: [facility] has implemented the eGFR calculation approach that does not have a coefficient for race that conforms to the NKF-ASN Task Force Recommendations. Performed By: #### 4 [id number] ####[facility] [address] [place], [place] [address] Abbi Choudhary M.D. [id number] Urea nitrogen [Mass/Vol] 30 mg/dL High 8-25 [facility] Comment on above: Order Comment: [facility] has implemented the eGFR calculation approach that does not have a coefficient for race that conforms to the NKF-ASN Task Force Recommendations. Performed By: #### 4 [id number] ####[facility] [address] [place], [place] [address] Abbi Choudhary M.D. [id number] Urea nitrogen/Creatinine [Mass ratio] 18.1 mg/mg Normal 10.0-20.0 [facility] Comment on above: Order Comment: [facility] has implemented the eGFR calculation approach that does not have a coefficient for race that conforms to the NKF-ASN Task Force Recommendations. Performed By: #### 4 [id number] ####[facility] [address] [place], [place] [address] Abbi Choudhary M.D. [id number] Basic metabolic 2000 panelon 04-26-2024 Anion gap [Moles/Vol] 19 mmol/L 10 - 2 0 mmol/L [facility] [place] Calcium [Mass/Vol] 8.9 mg/dL 8.4 - 10. 2 mg/dL [facility] [place] Chloride [Moles/Vol] 99 mmol/L 98 - 10 8 mmol/L [facility] [place] Creatinine [Mass/Vol] 1.66 mg/dL High 0.40 - 1.10 mg/dL [facility] [place] GFR/1.73 sq M.predicted CKD-EPI (S/P/Bld) [Vol rate/Area] 38 Low - PINF [facility] [place] Comment on above: Estimated GFR was ca lculated using the 2020 CKD-EPI creatinine equation. Glucose [Mass/Vol] 293 mg/dL High 65 - 99 mg/dL [facility] [place] HCO3 [Moles/Vol] 24 mmol/L 21 - 32 mmol/L [facility] [place] Potassium [Moles/Vol] 4.3 mmol/L 3.5 - 5.1 mmol/L [facility] [place] Sodium [Moles/Vol] 138 mmol/L 135 - 145 mmol/L [facility] [place] Urea nitrogen [Mass/Vol] 30 mg/dL High 8 - 25 mg/dL [facility] [place] Urea nitrogen/Creatinine [Mass ratio] 18.1 mg/mg 10.0 - 20.0 [facility] has implemented the eGFR calculation approach that does not have a coefficient for race that conforms to the NKF-ASN Task Force Recommendations. [facility] [place] CBC Auto Differentialon 12-0 Basophils (Bld) [#/Vol] 0.05 10*3/uL [facility] [place] Basophils/100 WBC (Bld) 0.5 % [facility] [place] Eosinophils (Bld) [#/Vol] 0.18 10*3/uL [facility] [place] Eosinophils/100 WBC (Bld) 1.7 % [facility] [place] Erythrocyte distribution width (RBC) [Entitic vol] 13.2 % 11.6 - 14.8 % [facility] [place] Hematocrit (Bld) [Volume fraction] 34.9 % Low 36.0 - 46.0 % [facility] [place] Hemoglobin (Bld) [Mass/Vol] 11.9 g/dL Low 12.0 - 16.0 g/dL [facility] [place] Immature granulocytes (Bld) [#/Vol] 0.09 10*3/uL [facility] [place] Immature granulocytes/100 WBC (Bld) 0.9 % [facility] [place] Comment on above: The IG parameter is the percentage of metamyelocytes, myelocytes and promyelocytes. An immature granulocyte count (IG) of 1% or more suggests the possibility of infection, an IG count of 3% is very likely related to an infection. Interpretation and review of laboratory results Abnormal [facility] [place] Lymphocytes (Bld) [#/Vol] 1.6 10*3/uL [facility] [place] Lymphocytes/100 WBC (Bld) 15.3 % [facility] [place] MCH (RBC) [Entitic mass] 31.2 pg 26.0 - 34.0 pg [facility] [place] MCHC (RBC) [Mass/Vol] 34.1 g/dL 31.0 - 37.0 g/dL [facility] [place] MCV (RBC) [Entitic vol] 91.4 fL 80.0 - 100.0 fL [facility] [place] Monocytes (Bld) [#/Vol] 0.5 10*3/uL [facility] [place] Monocytes/100 WBC (Bld) 4.8 % [facility] [place] Neutrophils (Bld) [#/Vol] 8.04 10*3/uL High [facility] [place] Neutrophils/100 WBC (Bld) 76.8 % [facility] [place] Nucleated RBC (Bld) [#/Vol] 0 10*3/uL [facility] [place] Nucleated RBC/100 WBC (Bld) [Ratio] 0 % [facility] Platelet mean volume (Bld) [Entitic vol] 9.8 fL 9.4 - 12.4 fL [facility] [place] Platelets (Bld) [#/Vol] 294 10*3/uL [facility] [place] RBC (Bld) [#/Vol] 3.82 10*6/uL Low [facility] WBC (Bld) [#/Vol] 10.46 10*3/uL [facility] CBC WITH AUTO DIFFERENTIALon 04-26-2024 AUTO NRBC 0.0 % Normal [facility] Comment on above: Performed By: #### L [id number] ####[facility] [address] [place] [address] Abbi Choudhary M.D. [id number] AUTO NRBC ABS COUNT 0.00 K/mcL Normal 0.00-0.00 [facility] Comment on above: Performed By: #### L [id number] ####[facility] [address] [place] [address] Abbi Choudhary M.D. [id number] BASOPHILS ABSOLUTE COUNT 0.05 K/mcL Normal 0.00-0.30 [facility] Comment on above: Performed By: #### L [id number] ####[facility] [address] [place] [address] Abbi Choudhary M.D. [id number] Basophils/100 WBC (Bld) 0.5 % Normal [facility] Comment on above: Performed By: #### L [id number] ####[facility] [address] [place] [address] Abbi Choudhary M.D. [id number] Eosinophils (Bld) [#/Vol] 0.18 10*3/uL Normal 0.00-0.50 [facility] Comment on above: Performed By: #### L [id number] ####[facility] [address] [place] [address] Abbi Choudhary M.D. [id number] Eosinophils/100 WBC (Bld) 1.7 % Normal [facility] Comment on above: Performed By: #### L [id number] ####[facility] [address] [place] [address] Abbi Choudhary M.D. [id number] Erythrocyte distribution width (RBC) [Ratio] 13.2 % Normal 11.6-14.8 [facility] Comment on above: Performed By: #### L [id number] ####[facility] [address] [place] [address] Abbi Choudhary M.D. [id number] Hematocrit (Bld) [Volume fraction] 34.9 % Low 36.0-46.0 [facility] Comment on above: Performed By: #### L [id number] ####[facility] [address] [place] [address] Abbi Choudhary M.D. [id number] Hemoglobin (Bld) [Mass/Vol] 11.9 g/dL Low 12.0-16.0 [facility] Comment on above: Performed By: #### L [id number] ####[facility] [address] [place] [address] Abbi Choudhary M.D. [id number] IG ABSOLUTE 0.09 K/mcL Normal 0.00-0.30 [facility] Comment on above: Performed By: #### L [id number] ####[facility] [address] [place] [address] Abbi Choudhary M.D. [id number] IG PERCENT 0.90 % Normal [facility] Comment on above: Result Comment: The IG parameter is the percentage of metamyelocytes, myelocytes and promyelocytes. An immature granulocyte count (IG) of 1% or more suggests the possibility of infection, an IG count of 3% is very likely related to an infection. Performed By: #### L [id number] ####[facility] [address] [place] [address] Abbi Choudhary M.D. [id number] Lymphocytes (Bld) [#/Vol] 1.60 10*3/uL Normal 0.90-4.00 [facility] Comment on above: Performed By: #### L [id number] ####[facility] [address] [place] [address] Abbi Choudhary M.D. [id number] Lymphocytes/100 WBC (Bld) 15.3 % Normal [facility] Comment on above: Performed By: #### L [id number] ####[facility] [address] [place] [address] Abbi Choudhary M.D. [id number] MCH (RBC) [Entitic mass] 31.2 pg Normal 26.0-34.0 [facility] Comment on above: Performed By: #### L [id number] ####[facility] [address] [place] [address] Abbi Choudhary M.D. [id number] MCV (RBC) [Entitic vol] 91.4 fL Normal 80.0-100.0 [facility] Comment on above: Performed By: #### L [id number] ####[facility] [address] [place] [address] Abbi Choudhary M.D. [id number] MEAN CORPUSCULAR HEMOGLOBIN CONC 34.1 g/dL Normal 31.0-37.0 [facility] Comment on above: Performed By: #### L [id number] ####[facility] [address] [place] [address] Abbi Choudhary M.D. [id number] Monocytes (Bld) [#/Vol] 0.50 10*3/uL Normal 0.30-0.90 [facility] Comment on above: Performed By: #### L [id number] ####[facility] [address] [place] [address] Abbi Choudhary M.D. [id number] Monocytes/100 WBC (Bld) 4.8 % Normal [facility] Comment on above: Performed By: #### L [id number] ####[facility] [address] [place], [place] [address] Abbi Choudhary M.D. [id number] NEUTROPHILS ABSOLUTE COUNT 8.04 K/mcL High 1.70-7.00 [facility] Comment on above: Performed By: #### L [id number] ####[facility] [address] [place] [address] Abbi Choudhary M.D. [id number] Neutrophils/100 WBC (Bld) 76.8 % Normal [facility] Comment on above: Performed By: #### L [id number] ####[facility] [address] [place], [place] [address] Abbi Choudhary M.D. [id number] Platelet mean volume (Bld) [Entitic vol] 9.8 fL Normal 9.4-12.4 [facility] Comment on above: Performed By: #### L [id number] ####[facility] [address] [place], [place] [address] Abbi Choudhary M.D. [id number] Platelets (Bld) [#/Vol] 294 10*3/uL Normal 150-400 [facility] Comment on above: Performed By: #### L [id number] ####[facility] [address] [place], [place] [address] Abbi Choudhary M.D. [id number] RBC (Bld) [#/Vol] 3.82 10*6/uL Low 4.00-5.20 [facility] Comment on above: Performed By: #### L [id number] ####[facility] [address] [place], [place] [address] Abbi Choudhary M.D. [id number] WBC (Bld) [#/Vol] 10.46 10*3/uL Normal 4.50-11.00 [facility] Comment on above: Performed By: #### L [id number] ####[facility] [address] [place], [place] [address] Abbi Choudhary M.D. [id number] CRP, INFLAMMATIONon 04-26-20 24 CRP [Mass/Vol] 91.8 mg/L High 0.0-10.0 [facility] Comment on above: Performed By: #### 4 [id number] ####[facility] [address] [place], [place] [address] Abbi Choudhary M.D. [id number] CRP, Inflammationon 04-26-20 24 CRP [Mass/Vol] 91.8 mg/L High 0.0 - 10.0 mg/L [facility] [place] Dark Green TopOrdered By: Sa sabrina Aguilar on 04-26-2024 Extra Tube n [facility] ED Prov Noteon 04-26-2024 ED Prov Note Normal [facility] ESR Westergren method (Bld) [Velocity]on 04-26-2024 ESR (Bld) [Velocity] 58 mm/h High [facility] Interpretation and review of laboratory results Abnormal [facility] H AND [place] 04-26-2024 H AND P Normal [facility] No Panel Informationon 04-26 Extra Tube Hold for add-ons. [facility] Comment on above: Auto resulted. [facility] [place] Interpretation and review of laboratory results Abnormal [facility] SEDIMENTATION RATEon 024 SEDIMENTATION RATE, ERYTHROCYTE 58 mm/hr High 0 [facility] Comment on above: Performed By: #### 4 [id number] ####[facility] [address] [place], [place] [address] Abbi Choudhary M.D. [id number] XR FOOT LEFT 3+ VIEWS (STAND ILIA)on 04-26-2024 XR FOOT LEFT 3+ VIEWS (STANDARD) Normal [facility] Comment on above: Order Comment: Injur y/Trauma or Illness?:Illness/OtherPatient arrives with EMS ([facility]). She ambulated off of EMS cot with [...] symptoms (acute/chronic)?:AcuteReason for exam?:Patient arrives with EMS ([facility]). She ambulated off of EMS cot with [...] Exam?:InitialAdditional signs and symptoms?:Patient arrives with EMS ([facility]). She ambulated off of EMS cot with [...] bony abnormality is seen. Workstation ID: [id number] [employer]Link [facility] EXAMINATION: XR FOOT LEFT 3+ VIEWS (STANDARD) 04/26/2024 8:26 pm HISTORY: ORDERING SYSTEM PROVIDED HISTORY: post op eval, TECHNOLOGIST PROVIDED HISTORY: Illness/Other Reason for exam: Patient arrives with EMS ([facility]). She ambulated off of EMS cot with [...] signs and symptoms: Patient arrives with EMS ([facility]). She ambulated off of EMS cot with [...] Reason for exam: Patient arrives with EMS ([facility]). She ambulated off of EMS cot with [...] signs and symptoms: Patient arrives with EMS ([facility]). She ambulated off of EMS cot with [...] bony abnormality is seen. Workstation ID: [id number] [facility] Radiology Study observation (narrative) [facility] XR Foot - left 3 ViewsOrdere d By: Agustin Andrea on 04-26-2024 [facility] Work Phone: CBCon 04-04-2024 AUTO NRBC 0.0 % Normal [facility] Comment on above: Performed By: #### 4 [id number] ####[facility] [address] [place], [place] [address] Abbi Choudhary M.D. [id number] AUTO NRBC ABS COUNT 0.00 K/mcL Normal 0.00-0.00 [facility] Comment on above: Performed By: #### 4 [id number] ####[facility] [address] [place], [place] [address] Abbi Choudhary M.D. [id number] Erythrocyte distribution width (RBC) [Ratio] 13.1 % Normal 11.6-14.8 [facility] Comment on above: Performed By: #### 4 [id number] ####[facility] [address] [place], [place] [address] Abbi Choudhary M.D. [id number] Hematocrit (Bld) [Volume fraction] 26.7 % Low 36.0-46.0 [facility] Comment on above: Performed By: #### 4 [id number] ####[facility] [address] [place], [place] [address] Abbi Choudhary M.D. [id number] Hemoglobin (Bld) [Mass/Vol] 8.9 g/dL Low 12.0-16.0 [facility] Comment on above: Performed By: #### 4 [id number] ####[facility] [address] [place], [place] [address] Abbi Choudhary M.D. [id number] MCH (RBC) [Entitic mass] 31.1 pg Normal 26.0-34.0 [facility] Comment on above: Performed By: #### 4 [id number] ####[facility] [address] [place], [place] [address] Abbi Choudhary M.D. [id number] MCV (RBC) [Entitic vol] 93.4 fL Normal 80.0-100.0 [facility] Comment on above: Performed By: #### 4 [id number] ####[facility] [address] [place], [place] [address] Abbi Choudhary M.D. [id number] MEAN CORPUSCULAR HEMOGLOBIN CONC 33.3 g/dL Normal 31.0-37.0 [facility] Comment on above: Performed By: #### 4 [id number] ####[facility] [address] [place], [place] [address] Abbi Choudhary M.D. [id number] Platelet mean volume (Bld) [Entitic vol] 9.6 fL Normal 9.4-12.4 [facility] Comment on above: Performed By: #### 4 [id number] ####[facility] [address] [place], [place] [address] Abbi Choudhary M.D. [id number] Platelets (Bld) [#/Vol] 256 10*3/uL Normal 150-400 [facility] Comment on above: Performed By: #### 4 [id number] ####[facility] [address] [place], [place] [address] Abbi Choudhary M.D. [id number] RBC (Bld) [#/Vol] 2.86 10*6/uL Low 4.00-5.20 [facility] Comment on above: Performed By: #### 4 [id number] ####[facility] [address] [place], [place] [address] Abbi Choudhary M.D. [id number] WBC (Bld) [#/Vol] 7.11 10*3/uL Normal 4.50-11.00 [facility] Comment on above: Performed By: #### 4 [id number] ####[facility] [address] [place], [place] [address] Abbi Choudhary M.D. [id number] CBC panel Auto (Bld)on 04-04 Erythrocyte distribution width (RBC) [Entitic vol] 13.1 % 11.6 - 14.8 % [facility] Hematocrit (Bld) [Volume fraction] 26.7 % Low 36.0 - 46.0 % [facility] Hemoglobin (Bld) [Mass/Vol] 8.9 g/dL Low 12.0 - 16.0 g/dL [facility] Interpretation and review of laboratory results Abnormal [facility] MCH (RBC) [Entitic mass] 31.1 pg 26.0 - 34.0 pg [facility] MCHC (RBC) [Mass/Vol] 33.3 g/dL 31.0 - 37.0 g/dL [facility] MCV (RBC) [Entitic vol] 93.4 fL 80.0 - 100.0 fL [facility] Nucleated RBC (Bld) [#/Vol] 0 10*3/uL [facility] Nucleated RBC/100 WBC (Bld) [Ratio] 0 % [facility] Platelet mean volume (Bld) [Entitic vol] 9.6 fL 9.4 - 12.4 fL [facility] Platelets (Bld) [#/Vol] 256 10*3/uL [facility] RBC (Bld) [#/Vol] 2.86 10*6/uL Low [facility] WBC (Bld) [#/Vol] 7.11 10*3/uL [facility] [place] 04-04-2024 Disch [place] Normal [facility] RENAL FUNCTION PANELon 04-04 Albumin [Mass/Vol] 3.2 g/dL Normal 3.2-5.2 [facility] Comment on above: Order Comment: [facility] has implemented the eGFR calculation approach that does not have a coefficient for race that conforms to the NKF-ASN Task Force Recommendations. Performed By: #### 4 6449 ####[facility] [address] [place] [address] Abbi Choudhary M.D. [id number] Anion gap [Moles/Vol] 12 mmol/L Normal 10-20 [facility] Comment on above: Order Comment: [facility] has implemented the eGFR calculation approach that does not have a coefficient for race that conforms to the NKF-ASN Task Force Recommendations. Performed By: #### 4 6449 ####[facility] [address] [place], [place] [address] Abbi Choudhary M.D. [id number] Calcium [Mass/Vol] 8.4 mg/dL Normal 8.4-10.2 [facility] Comment on above: Order Comment: [facility] has implemented the eGFR calculation approach that does not have a coefficient for race that conforms to the NKF-ASN Task Force Recommendations. Performed By: #### 4 6449 ####[facility] [address] [place], [place] [address] Abbi Choudhary M.D. [id number] Chloride [Moles/Vol] 105 mmol/L Normal 98-108 [facility] Comment on above: Order Comment: [facility] has implemented the eGFR calculation approach that does not have a coefficient for race that conforms to the NKF-ASN Task Force Recommendations. Performed By: #### 4 6449 ####[facility] [address] [place], [place] [address] Abbi Choudhary M.D. [id number] Creatinine [Mass/Vol] 1.34 mg/dL High 0.40-1.10 [facility] Comment on above: Order Comment: [facility] has implemented the eGFR calculation approach that does not have a coefficient for race that conforms to the NKF-ASN Task Force Recommendations. Performed By: #### 4 6449 ####[facility] [address] [place], [place] [address] Abbi Choudhary M.D. [id number] EGFR 50 mL/min/1.73 m2 Low >=60 [facility] Comment on above: Order Comment: [facility] has implemented the eGFR calculation approach that does not have a coefficient for race that conforms to the NKF-ASN Task Force Recommendations. Result Comment: Lorie mated GFR was calculated using the 2020 CKD-EPI creatinine equation. Performed By: #### 4 6449 ####[facility] [address] [place], [place] [address] Abbi Choudhary M.D. [id number] Glucose [Mass/Vol] 245 mg/dL High 65-99 [facility] Comment on above: Order Comment: [facility] has implemented the eGFR calculation approach that does not have a coefficient for race that conforms to the NKF-ASN Task Force Recommendations. Performed By: #### 4 6449 ####[facility] [address] [place], [place] [address] Abbi Choudhary M.D. [id number] HCO3 (Bld) [Moles/Vol] 28 mmol/L Normal 21-32 [facility] Comment on above: Order Comment: [facility] has implemented the eGFR calculation approach that does not have a coefficient for race that conforms to the NKF-ASN Task Force Recommendations. Performed By: #### [id number] ####[facility] [address] [place], [place] [address] Abbi Choudhary M.D. [id number] Phosphate [Mass/Vol] 3.8 mg/dL Normal 2.7-4.5 [facility] Comment on above: Order Comment: [facility] has implemented the eGFR calculation approach that does not have a coefficient for race that conforms to the NKF-ASN Task Force Recommendations. Performed By: #### 4 [id number] ####[facility] [address] [place], [place] [address] Abbi Choudhary M.D. [id number] Potassium [Moles/Vol] 4.0 mmol/L Normal 3.5-5.1 [facility] Comment on above: Order Comment: [facility] has implemented the eGFR calculation approach that does not have a coefficient for race that conforms to the NKF-ASN Task Force Recommendations. Performed By: #### 4 [id number] ####[facility] [address] [place], [place] [address] Abbi Choudhary M.D. [id number] Sodium [Moles/Vol] 141 mmol/L Normal 135-145 [facility] Comment on above: Order Comment: [facility] has implemented the eGFR calculation approach that does not have a coefficient for race that conforms to the NKF-ASN Task Force Recommendations. Performed By: #### 4 [id number] ####[facility] [address] [place], [place] [address] Abbi Choudhary M.D. [id number] Urea nitrogen [Mass/Vol] 20 mg/dL Normal 8-25 [facility] Comment on above: Order Comment: [facility] has implemented the eGFR calculation approach that does not have a coefficient for race that conforms to the NKF-ASN Task Force Recommendations. Performed By: #### 4 [id number] ####[facility] [address] [place], [place] [address] Abbi Choudhary M.D. [id number] Urea nitrogen/Creatinine [Mass ratio] 14.9 mg/mg Normal 10.0-20.0 [facility] Comment on above: Order Comment: [facility] has implemented the eGFR calculation approach that does not have a coefficient for race that conforms to the NKF-ASN Task Force Recommendations. Performed By: #### 4 [id number] #### LAB [address] [place], [place] [address] Abbi Choudhary M.D. [id number] Renal function [address] [facility] 04-04-2024 Albumin [Mass/Vol] 3.2 g/dL 3.2 - 5.2 g/dL [facility] [place] Anion gap [Moles/Vol] 12 mmol/L 10 - 2 0 mmol/L [facility] Calcium [Mass/Vol] 8.4 mg/dL 8.4 - 10. 2 mg/dL [facility] [place] Chloride [Moles/Vol] 105 mmol/L 98 - 10 8 mmol/L [facility] [place] Creatinine [Mass/Vol] 1.34 mg/dL High 0.40 - 1.10 mg/dL [facility] [place] GFR/1.73 sq M.predicted CKD-EPI (S/P/Bld) [Vol rate/Area] 50 Low - PINF [facility] Glucose [Mass/Vol] 245 mg/dL High 65 - 99 mg/dL [facility] HCO3 [Moles/Vol] 28 mmol/L 21 - 32 mmol/L [facility] Interpretation and review of laboratory results Abnormal [facility] Phosphate [Mass/Vol] 3.8 mg/dL 2.7 - 4 .5 mg/dL [facility] Potassium [Moles/Vol] 4 mmol/L 3.5 - 5.1 mmol/L [facility] Sodium [Moles/Vol] 141 mmol/L 135 - 145 mmol/L [facility] Urea nitrogen [Mass/Vol] 20 mg/dL 8 - 25 mg/dL [facility] Urea nitrogen/Creatinine [Mass ratio] 14.9 mg/mg 10.0 - 20.0 [facility] Aerobic Cultur eOrdered By: Maria T Matamoros on 04-04-2024 Bacteria identified Aer cx Nom (Unsp spec) Rare growth Staphylococcus epidermidis Abnormal [facility] Interpretation and review of laboratory results Abnormal [facility] Microscopic observation Gram stain Nom (Unsp spec) Many WBC [facility] Microscopic observation Gram stain Nom (Unsp spec) Many RBC [facility] Microscopic observation Gram stain Nom (Unsp spec) No Organisms Seen [facility] CBCon 04-03-2024 AUTO NRBC 0.0 % Normal [facility] Comment on above: Performed By: #### [id number] ####[facility] [address] [place], [place] [address] Abbi Choudhary M.D. [id number] AUTO NRBC ABS COUNT 0.00 K/mcL Normal 0.00-0.00 [facility] Comment on above: Performed By: #### 4 [id number] ####[facility] [address] [place], [place] [address] Abbi Choudhary M.D. [id number] Erythrocyte distribution width (RBC) [Ratio] 13.5 % Normal 11.6-14.8 [facility] Comment on above: Performed By: #### 4 [id number] ####[facility] [address] [place], [place] [address] Abbi Choudhary M.D. [id number] Hematocrit (Bld) [Volume fraction] 26.8 % Low 36.0-46.0 [facility] Comment on above: Performed By: #### 4 [id number] ####[facility] [address] [place], [place] [address] Abbi Choudhary M.D. [id number] Hemoglobin (Bld) [Mass/Vol] 8.8 g/dL Low 12.0-16.0 [facility] Comment on above: Performed By: #### 4 [id number] ####[facility] [address] [place], [place] [address] Abbi Choudhary M.D. [id number] MCH (RBC) [Entitic mass] 31.1 pg Normal 26.0-34.0 [facility] Comment on above: Performed By: #### 4 [id number] ####[facility] [address] [place], [place] [address] Abbi Choudhary M.D. [id number] MCV (RBC) [Entitic vol] 94.7 fL Normal 80.0-100.0 [facility] Comment on above: Performed By: #### 4 [id number] ####[facility] [address] [place] [address] Abbi Choudhary M.D. [id number] MEAN CORPUSCULAR HEMOGLOBIN CONC 32.8 g/dL Normal 31.0-37.0 [facility] Comment on above: Performed By: #### 4 [id number] ####[facility] [address] [place], [place] [address] Abbi Choudhary M.D. [id number] Platelet mean volume (Bld) [Entitic vol] 9.5 fL Normal 9.4-12.4 [facility] Comment on above: Performed By: #### 4 [id number] ####[facility] [address] [place], [place] [address] Abbi Choudhary M.D. [id number] Platelets (Bld) [#/Vol] 277 10*3/uL Normal 150-400 [facility] Comment on above: Performed By: #### 4 [id number] ####[facility] [address] [place], [place] [address] Abbi Choudhary M.D. [id number] RBC (Bld) [#/Vol] 2.83 10*6/uL Low 4.00-5.20 [facility] Comment on above: Performed By: #### 4 [id number] ####[facility] [address] [place], [place] [address] Abbi Choudhary M.D. [id number] WBC (Bld) [#/Vol] 7.63 10*3/uL Normal 4.50-11.00 [facility] Comment on above: Performed By: #### 4 [id number] ####[facility] [address] [place] [id number] Abbi Choudhary M.D. [id number] CBC panel Auto (Bld)on 04-03 Erythrocyte distribution width (RBC) [Entitic vol] 13.5 % 11.6 - 14.8 % [facility] [place] Hematocrit (Bld) [Volume fraction] 26.8 % Low 36.0 - 46.0 % [facility] [place] Hemoglobin (Bld) [Mass/Vol] 8.8 g/dL Low 12.0 - 16.0 g/dL [facility] [place] Interpretation and review of laboratory results Abnormal [facility] MCH (RBC) [Entitic mass] 31.1 pg 26.0 - 34.0 pg [facility] MCHC (RBC) [Mass/Vol] 32.8 g/dL 31.0 - 37.0 g/dL [facility] [place] MCV (RBC) [Entitic vol] 94.7 fL 80.0 - 100.0 fL [facility] [place] Nucleated RBC (Bld) [#/Vol] 0 10*3/uL [facility] Nucleated RBC/100 WBC (Bld) [Ratio] 0 % [facility] Platelet mean volume (Bld) [Entitic vol] 9.5 fL 9.4 - 12.4 fL [facility] [place] Platelets (Bld) [#/Vol] 277 10*3/uL [facility] [place] RBC (Bld) [#/Vol] 2.83 10*6/uL Low [facility] WBC (Bld) [#/Vol] 7.63 10*3/uL [facility] RENAL FUNCTION PANELon 04-03 Albumin [Mass/Vol] 3.2 g/dL Normal 3.2-5.2 [facility] Comment on above: Order Comment: [facility] has implemented the eGFR calculation approach that does not have a coefficient for race that conforms to the NKF-ASN Task Force Recommendations. Performed By: #### 4 [id number] ####[facility] [address] [place], [place] [address] Abbi Choudhary M.D. [id number] Anion gap [Moles/Vol] 11 mmol/L Normal 10-20 [facility] Comment on above: Order Comment: [facility] has implemented the eGFR calculation approach that does not have a coefficient for race that conforms to the NKF-ASN Task Force Recommendations. Performed By: #### 4 [id number] ####[facility] [address] [place], [place] [address] Abbi Choudhary M.D. [id number] Calcium [Mass/Vol] 8.2 mg/dL Low 8.4-10.2 [facility] Comment on above: Order Comment: [facility] has implemented the eGFR calculation approach that does not have a coefficient for race that conforms to the NKF-ASN Task Force Recommendations. Performed By: #### 4 [id number] ####[facility] [address] [place], [place] [address] Abbi Choudhary M.D. [id number] Chloride [Moles/Vol] 106 mmol/L Normal 98-108 [facility] Comment on above: Order Comment: [facility] has implemented the eGFR calculation approach that does not have a coefficient for race that conforms to the NKF-ASN Task Force Recommendations. Performed By: #### 4 [id number] ####[facility] [address] [place], [place] [address] Abbi Choudhary M.D. [id number] Creatinine [Mass/Vol] 1.65 mg/dL High 0.40-1.10 [facility] Comment on above: Order Comment: [facility] has implemented the eGFR calculation approach that does not have a coefficient for race that conforms to the NKF-ASN Task Force Recommendations. Performed By: #### 4 [id number] ####[facility] [address] [place], [place] [address] Abbi Choudhary M.D. [id number] EGFR 39 mL/min/1.73 m2 Low >=60 [facility] Comment on above: Order Comment: [facility] has implemented the eGFR calculation approach that does not have a coefficient for race that conforms to the NKF-ASN Task Force Recommendations. Result Comment: Lorie mated GFR was calculated using the 2020 CKD-EPI creatinine equation. Performed By: #### 4 [id number] ####[facility] [address] [place], [place] [address] Abbi Choudhary M.D. [id number] Glucose [Mass/Vol] 206 mg/dL High 65-99 [facility] Comment on above: Order Comment: [facility] has implemented the eGFR calculation approach that does not have a coefficient for race that conforms to the NKF-ASN Task Force Recommendations. Performed By: #### 4 [id number] ####[facility] [address] [place], [place] [address] Abbi Choudhary M.D. [id number] HCO3 (Bld) [Moles/Vol] 28 mmol/L Normal 21-32 [facility] Comment on above: Order Comment: [facility] has implemented the eGFR calculation approach that does not have a coefficient for race that conforms to the NKF-ASN Task Force Recommendations. Performed By: #### 4 [id number] ####[facility] [address] [place], [place] [address] Abbi Choudhary M.D. [id number] Phosphate [Mass/Vol] 4.4 mg/dL Normal 2.7-4.5 [facility] Comment on above: Order Comment: [facility] has implemented the eGFR calculation approach that does not have a coefficient for race that conforms to the NKF-ASN Task Force Recommendations. Performed By: #### 4 [id number] ####[facility] [address] [place], [place] [address] Abbi Choudhary M.D. [id number] Potassium [Moles/Vol] 3.7 mmol/L Normal 3.5-5.1 [facility] Comment on above: Order Comment: [facility] has implemented the eGFR calculation approach that does not have a coefficient for race that conforms to the NKF-ASN Task Force Recommendations. Performed By: #### 4 [id number] ####[facility] [address] [place], [place] [address] Abbi Choudhary M.D. [id number] Sodium [Moles/Vol] 141 mmol/L Normal 135-145 [facility] Comment on above: Order Comment: [facility] has implemented the eGFR calculation approach that does not have a coefficient for race that conforms to the NKF-ASN Task Force Recommendations. Performed By: #### 4 [id number] ####[facility] [address] [place], [place] [address] Abbi Choudhary M.D. [id number] Urea nitrogen [Mass/Vol] 19 mg/dL Normal 8-25 [facility] Comment on above: Order Comment: [facility] has implemented the eGFR calculation approach that does not have a coefficient for race that conforms to the NKF-ASN Task Force Recommendations. Performed By: #### 4 [id number] ####[facility] [address] [place], [place] [address] Abbi Choudhary M.D. [id number] Urea nitrogen/Creatinine [Mass ratio] 11.5 mg/mg Normal 10.0-20.0 [facility] Comment on above: Order Comment: [facility] has implemented the eGFR calculation approach that does not have a coefficient for race that conforms to the NKF-ASN Task Force Recommendations. Performed By: #### 4 [id number] ####[facility] [address] [place], [place] [address] Abbi Choudhary M.D. [id number] Renal function [address] [facility] 04-03-2024 Albumin [Mass/Vol] 3.2 g/dL 3.2 - 5.2 g/dL [facility] [place] Anion gap [Moles/Vol] 11 mmol/L 10 - 2 0 mmol/L [facility] Calcium [Mass/Vol] 8.2 mg/dL Low 8.4 - 10. 2 mg/dL [facility] [place] Chloride [Moles/Vol] 106 mmol/L 98 - 10 8 mmol/L [facility] [place] Creatinine [Mass/Vol] 1.65 mg/dL High 0.40 - 1.10 mg/dL [facility] [place] GFR/1.73 sq M.predicted CKD-EPI (S/P/Bld) [Vol rate/Area] 39 Low - PINF [facility] [place] Glucose [Mass/Vol] 206 mg/dL High 65 - 99 mg/dL [facility] HCO3 [Moles/Vol] 28 mmol/L 21 - 32 mmol/L [facility] Interpretation and review of laboratory results Abnormal [facility] Phosphate [Mass/Vol] 4.4 mg/dL 2.7 - 4 .5 mg/dL [facility] Potassium [Moles/Vol] 3.7 mmol/L 3.5 - 5.1 mmol/L [facility] Sodium [Moles/Vol] 141 mmol/L 135 - 145 mmol/L [facility] Urea nitrogen [Mass/Vol] 19 mg/dL 8 - 25 mg/dL [facility] Urea nitrogen/Creatinine [Mass ratio] 11.5 mg/mg 10.0 - 20.0 [facility] CBCon 04-02-2024 AUTO NRBC 0.0 % Normal [facility] Comment on above: Performed By: #### [id number] ####[facility] [address] [place], [place] [address] Abbi Choudhary M.D. [id number] AUTO NRBC ABS COUNT 0.00 K/mcL Normal 0.00-0.00 [facility] Comment on above: Performed By: #### 4 [id number] ####[facility] [address] [place] [address] Abbi Choudhary M.D. [id number] Erythrocyte distribution width (RBC) [Ratio] 13.1 % Normal 11.6-14.8 [facility] Comment on above: Performed By: #### 4 [id number] ####[facility] [address] [place], [place] [address] Abbi Choudhary M.D. [id number] Hematocrit (Bld) [Volume fraction] 26.0 % Low 36.0-46.0 [facility] Comment on above: Performed By: #### 4 [id number] ####[facility] [address] [place], [place] [address] Abbi Choudhary M.D. [id number] Hemoglobin (Bld) [Mass/Vol] 8.9 g/dL Low 12.0-16.0 [facility] Comment on above: Performed By: #### 4 [id number] ####[facility] [address] [place], [place] [address] Abbi Choudhary M.D. [id number] MCH (RBC) [Entitic mass] 31.2 pg Normal 26.0-34.0 [facility] Comment on above: Performed By: #### 4 [id number] ####[facility] [address] [place], [place] [address] Abbi Choudhary M.D. [id number] MCV (RBC) [Entitic vol] 91.2 fL Normal 80.0-100.0 [facility] Comment on above: Performed By: #### 4 [id number] ####[facility] [address] [place], [place] [address] Abbi Choudhary M.D. [id number] MEAN CORPUSCULAR HEMOGLOBIN CONC 34.2 g/dL Normal 31.0-37.0 [facility] Comment on above: Performed By: #### 4 [id number] ####[facility] [address] [place] [address] Abbi Choudhary M.D. [id number] Platelet mean volume (Bld) [Entitic vol] 9.2 fL Low 9.4-12.4 [facility] Comment on above: Performed By: #### 4 [id number] ####[facility] [address] [place], [place] [address]Alisia Choudhary M.D. [id number] Platelets (Bld) [#/Vol] 277 10*3/uL Normal 150-400 [facility] Comment on above: Performed By: #### 4 [id number] ####[facility] [address] [place] [address] Abbi Choudhary M.D. [id number] RBC (Bld) [#/Vol] 2.85 10*6/uL Low 4.00-5.20 [facility] Comment on above: Performed By: #### 4 [id number] ####[facility] [address] [place] [address] Abbi Choudhary M.D. [id number] WBC (Bld) [#/Vol] 7.42 10*3/uL Normal 4.50-11.00 [facility] Comment on above: Performed By: #### 4 [id number] ####[facility] [address] [place], [place] [address] Abbi Choudhary M.D. [id number] CBC panel Auto (Bld)on 04-02 Erythrocyte distribution width (RBC) [Entitic vol] 13.1 % 11.6 - 14.8 % [facility] Hematocrit (Bld) [Volume fraction] 26 % Low 36.0 - 46.0 % [facility] Hemoglobin (Bld) [Mass/Vol] 8.9 g/dL Low 12.0 - 16.0 g/dL [facility] Interpretation and review of laboratory results Abnormal [facility] MCH (RBC) [Entitic mass] 31.2 pg 26.0 - 34.0 pg [facility] MCHC (RBC) [Mass/Vol] 34.2 g/dL 31.0 - 37.0 g/dL [facility] MCV (RBC) [Entitic vol] 91.2 fL 80.0 - 100.0 fL [facility] Nucleated RBC (Bld) [#/Vol] 0 10*3/uL [facility] Nucleated RBC/100 WBC (Bld) [Ratio] 0 % [facility] Platelet mean volume (Bld) [Entitic vol] 9.2 fL Low 9.4 - 12.4 fL [facility] Platelets (Bld) [#/Vol] 277 10*3/uL [facility] RBC (Bld) [#/Vol] 2.85 10*6/uL Low [facility] WBC (Bld) [#/Vol] 7.42 10*3/uL [facility] Glucose (Bld) [Mass/Vol]on 06-02-2023 Glucose [Mass/Vol] 239 mg/dL High 65 - 99 mg/dL [facility] Interpretation and review of laboratory results Abnormal [facility] Glucose [Mass/Vol] 239 mg/dL High 65-99 [facility] Comment on above: Performed By: #### [id number] ####[facility] [address] [place], [place] [address] Abbi Choudhary M.D. [id number] RENAL FUNCTION PANELon 04-02 Albumin [Mass/Vol] 3.2 g/dL Normal 3.2-5.2 [facility] Comment on above: Order Comment: [facility] has implemented the eGFR calculation approach that does not have a coefficient for race that conforms to the NKF-ASN Task Force Recommendations. Performed By: #### [id number] ####[facility] [address] [place], [place] [address] Abbi Choudhary M.D. [id number] Anion gap [Moles/Vol] 11 mmol/L Normal 10-20 [facility] Comment on above: Order Comment: [facility] has implemented the eGFR calculation approach that does not have a coefficient for race that conforms to the NKF-ASN Task Force Recommendations. Performed By: #### 4 [id number] ####[facility] [address] [place], [place] [address] Abbi Choudhary M.D. [id number] Calcium [Mass/Vol] 8.3 mg/dL Low 8.4-10.2 [facility] Comment on above: Order Comment: [facility] has implemented the eGFR calculation approach that does not have a coefficient for race that conforms to the NKF-ASN Task Force Recommendations. Performed By: #### [id number] ####[facility] [address] [place], [place] [address] Abbi Choudhary M.D. [id number] Chloride [Moles/Vol] 107 mmol/L Normal 98-108 [facility] Comment on above: Order Comment: [facility] has implemented the eGFR calculation approach that does not have a coefficient for race that conforms to the NKF-ASN Task Force Recommendations. Performed By: #### [id number] ####[facility] [address] [place], [place] [address] Abbi Choudhary M.D. [id number] Creatinine [Mass/Vol] 1.63 mg/dL High 0.40-1.10 [facility] Comment on above: Order Comment: [facility] has implemented the eGFR calculation approach that does not have a coefficient for race that conforms to the NKF-ASN Task Force Recommendations. Performed By: #### 4 [id number] ####[facility] [address] [place], [place] [address] Abbi Choudhary M.D. [id number] EGFR 39 mL/min/1.73 m2 Low >=60 [facility] Comment on above: Order Comment: [facility] has implemented the eGFR calculation approach that does not have a coefficient for race that conforms to the NKF-ASN Task Force Recommendations. Result Comment: Lorie mated GFR was calculated using the 2020 CKD-EPI creatinine equation. Performed By: #### [id number] ####[facility] [address] [place], [place] [address]Alisia Choudhary M.D. [id number] Glucose [Mass/Vol] 233 mg/dL High 65-99 [facility] Comment on above: Order Comment: [facility] has implemented the eGFR calculation approach that does not have a coefficient for race that conforms to the NKF-ASN Task Force Recommendations. Performed By: #### 4 [id number] ####[facility] [address] [place], [place] [address] Abbi Choudhary M.D. [id number] HCO3 (Bld) [Moles/Vol] 29 mmol/L Normal 21-32 [facility] Comment on above: Order Comment: [facility] has implemented the eGFR calculation approach that does not have a coefficient for race that conforms to the NKF-ASN Task Force Recommendations. Performed By: #### 4 [id number] ####[facility] [address] [place], [place] [address] Abbi Choudhary M.D. [id number] Phosphate [Mass/Vol] 3.8 mg/dL Normal 2.7-4.5 [facility] Comment on above: Order Comment: [facility] has implemented the eGFR calculation approach that does not have a coefficient for race that conforms to the NKF-ASN Task Force Recommendations. Performed By: #### 4 [id number] ####[facility] [address] [place], [place] [address] Abbi Choudhary M.D. [id number] Potassium [Moles/Vol] 3.7 mmol/L Normal 3.5-5.1 [facility] Comment on above: Order Comment: [facility] has implemented the eGFR calculation approach that does not have a coefficient for race that conforms to the NKF-ASN Task Force Recommendations. Performed By: #### 4 [id number] ####[facility] [address] [place], [place] [address] Abbi Choudhary M.D. [id number] Sodium [Moles/Vol] 143 mmol/L Normal 135-145 [facility] Comment on above: Order Comment: [facility] has implemented the eGFR calculation approach that does not have a coefficient for race that conforms to the NKF-ASN Task Force Recommendations. Performed By: #### 4 [id number] ####[facility] [address] [place], [place] [address] Abbi Choudhary M.D. [id number] Urea nitrogen [Mass/Vol] 14 mg/dL Normal 8-25 [facility] Comment on above: Order Comment: [facility] has implemented the eGFR calculation approach that does not have a coefficient for race that conforms to the NKF-ASN Task Force Recommendations. Performed By: #### 4 [id number] ####[facility] [address] [place], [place] [address] Abbi Choudhary M.D. [id number] Urea nitrogen/Creatinine [Mass ratio] 8.6 mg/mg Low 10.0-20.0 [facility] Comment on above: Order Comment: [facility] has implemented the eGFR calculation approach that does not have a coefficient for race that conforms to the NKF-ASN Task Force Recommendations. Performed By: #### 4 [id number] ####[facility] [address] [place], [place] [address] Abbi Choudhary M.D. [id number] [facility] Albumin [Mass/Vol] 3.2 g/dL 3.2 - 5.2 g/dL [facility] [place] Anion gap [Moles/Vol] 11 mmol/L 10 - 2 0 mmol/L [facility] Calcium [Mass/Vol] 8.3 mg/dL Low 8.4 - 10. 2 mg/dL [facility] Chloride [Moles/Vol] 107 mmol/L 98 - 10 8 mmol/L [facility] Creatinine [Mass/Vol] 1.63 mg/dL High 0.40 - 1.10 mg/dL [facility] GFR/1.73 sq M.predicted CKD-EPI (S/P/Bld) [Vol rate/Area] 39 Low - PINF [facility] Glucose [Mass/Vol] 233 mg/dL High 65 - 99 mg/dL [facility] HCO3 [Moles/Vol] 29 mmol/L 21 - 32 mmol/L [facility] Interpretation and review of laboratory results Abnormal [facility] Phosphate [Mass/Vol] 3.8 mg/dL 2.7 - 4 .5 mg/dL [facility] Potassium [Moles/Vol] 3.7 mmol/L 3.5 - 5.1 mmol/L [facility] Sodium [Moles/Vol] 143 mmol/L 135 - 145 mmol/L [facility] Urea nitrogen [Mass/Vol] 14 mg/dL 8 - 25 mg/dL [facility] Urea nitrogen/Creatinine [Mass ratio] 8.6 mg/mg Low 10.0 - 20.0 [facility] XR Foot - left 3 [facility] GE RIS GE RIS [facility] XR Foot - left 3 ViewsOrdere d By: Augustine Mittal on 04-02-2024 [facility] Work Phone: CBCon 04-01-2024 AUTO NRBC 0.0 % Normal [facility] Comment on above: Performed By: #### [id number] ####[facility] [address] [place], [place] [address] Abbi Choudhary M.D. [id number] AUTO NRBC ABS COUNT 0.00 K/mcL Normal 0.00-0.00 [facility] Comment on above: Performed By: #### 4 [id number] ####[facility] [address] [place], [place] [address] Abbi Choudhary M.D. [id number] Erythrocyte distribution width (RBC) [Ratio] 13.0 % Normal 11.6-14.8 [facility] Comment on above: Performed By: #### 4 [id number] ####[facility] [address] [place], [place] [address] Abbi Choudhary M.D. [id number] Hematocrit (Bld) [Volume fraction] 27.2 % Low 36.0-46.0 [facility] Comment on above: Performed By: #### 4 [id number] ####[facility] [address] [place], [place] [address] Abbi Choudhary M.D. [id number] Hemoglobin (Bld) [Mass/Vol] 9.2 g/dL Low 12.0-16.0 [facility] Comment on above: Performed By: #### 4 [id number] ####[facility] [address] [place], [place] [address] Abbi Choudhary M.D. [id number] MCH (RBC) [Entitic mass] 30.9 pg Normal 26.0-34.0 [facility] Comment on above: Performed By: #### 4 [id number] ####[facility] [address] [place], [place] [address] Abbi Choudhary M.D. [id number] MCV (RBC) [Entitic vol] 91.3 fL Normal 80.0-100.0 [facility] Comment on above: Performed By: #### 4 [id number] ####[facility] [address] [place], [place] [address] Abbi Choudhary M.D. [id number] MEAN CORPUSCULAR HEMOGLOBIN CONC 33.8 g/dL Normal 31.0-37.0 [facility] Comment on above: Performed By: #### 4 [id number] ####[facility] [address] [place], [place] [address] Abbi Choudhary M.D. [id number] Platelet mean volume (Bld) [Entitic vol] 8.8 fL Low 9.4-12.4 [facility] Comment on above: Performed By: #### 4 [id number] ####[facility] [address] [place], [place] [address] Abbi Choudhary M.D. [id number] Platelets (Bld) [#/Vol] 252 10*3/uL Normal 150-400 [facility] Comment on above: Performed By: #### 4 [id number] ####[facility] [address] [place], [place] [address] Abbi Choudhary M.D. [id number] RBC (Bld) [#/Vol] 2.98 10*6/uL Low 4.00-5.20 [facility] Comment on above: Performed By: #### 4 [id number] ####[facility] [address] [place], [place] [address] Abbi Choudhary M.D. [id number] WBC (Bld) [#/Vol] 6.99 10*3/uL Normal 4.50-11.00 [facility] Comment on above: Performed By: #### 4 [id number] ####[facility] [address] [place], [place] [address] Abbi Choudhary M.D. [id number] CBC panel Auto (Bld)on 04-01 Erythrocyte distribution width (RBC) [Entitic vol] 13 % 11.6 - 14.8 % [facility] Hematocrit (Bld) [Volume fraction] 27.2 % Low 36.0 - 46.0 % [facility] Hemoglobin (Bld) [Mass/Vol] 9.2 g/dL Low 12.0 - 16.0 g/dL [facility] Interpretation and review of laboratory results Abnormal [facility] MCH (RBC) [Entitic mass] 30.9 pg 26.0 - 34.0 pg [facility] MCHC (RBC) [Mass/Vol] 33.8 g/dL 31.0 - 37.0 g/dL [facility] MCV (RBC) [Entitic vol] 91.3 fL 80.0 - 100.0 fL [facility] Nucleated RBC (Bld) [#/Vol] 0 10*3/uL [facility] Nucleated RBC/100 WBC (Bld) [Ratio] 0 % [facility] Platelet mean volume (Bld) [Entitic vol] 8.8 fL Low 9.4 - 12.4 fL [facility] Platelets (Bld) [#/Vol] 252 10*3/uL [facility] RBC (Bld) [#/Vol] 2.98 10*6/uL Low [facility] WBC (Bld) [#/Vol] 6.99 10*3/uL [facility] ealth [facility] CT Foot - left WO contraston 04-01-2024 GE RIS GE RIS [facility] CT Foot - left WO contrastOr dered By: Kavin Duncan on 04-01-2024 [facility] Work Phone: Glucose (Bld) [Mass/Vol]on 06-01-2023 Glucose [Mass/Vol] 253 mg/dL High 65 - 99 mg/dL [facility] Interpretation and review of laboratory results Abnormal [facility] Glucose [Mass/Vol] 92 mg/dL 65 - 99 mg/dL [facility] Interpretation and review of laboratory results Normal [facility] OP NOTEon 04-01-2024 OP NOTE Normal [facility] POC GLUCOSE - Micky 024 Glucose [Mass/Vol] 253 mg/dL High 65-99 [facility] Comment on above: Performed By: #### 4 [id number] ####[facility] [address] [place], [place] [address] Abbi Choudhary M.D. [id number] Glucose [Mass/Vol] 92 mg/dL Normal 65-99 [facility] Comment on above: Performed By: #### 4 6932 ####[facility] [address] [place], [place] [address] Abbi Choudhary M.D. [id number] RENAL FUNCTION PANELon 04-01 Albumin [Mass/Vol] 3.3 g/dL Normal 3.2-5.2 [facility] Comment on above: Order Comment: [facility] has implemented the eGFR calculation approach that does not have a coefficient for race that conforms to the NKF-ASN Task Force Recommendations. Performed By: #### 4 [id number] ####[facility] [address] [place], [place] [address] Abbi Choudhary M.D. [id number] Anion gap [Moles/Vol] 12 mmol/L Normal 10-20 [facility] Comment on above: Order Comment: [facility] has implemented the eGFR calculation approach that does not have a coefficient for race that conforms to the NKF-ASN Task Force Recommendations. Performed By: #### 4 [id number] ####[facility] [address] [place], [place] [address] Abbi Choudhary M.D. [id number] Calcium [Mass/Vol] 8.6 mg/dL Normal 8.4-10.2 [facility] Comment on above: Order Comment: [facility] has implemented the eGFR calculation approach that does not have a coefficient for race that conforms to the NKF-ASN Task Force Recommendations. Performed By: #### 4 [id number] ####[facility] [address] [place], [place] [address] Abbi Choudhary M.D. [id number] Chloride [Moles/Vol] 108 mmol/L Normal 98-108 [facility] Comment on above: Order Comment: [facility] has implemented the eGFR calculation approach that does not have a coefficient for race that conforms to the NKF-ASN Task Force Recommendations. Performed By: #### 4 [id number] ####[facility] [address] [place], [place] [address] Abbi Choudhary M.D. [id number] Creatinine [Mass/Vol] 1.28 mg/dL High 0.40-1.10 [facility] Comment on above: Order Comment: [facility] has implemented the eGFR calculation approach that does not have a coefficient for race that conforms to the NKF-ASN Task Force Recommendations. Performed By: #### 4 [id number] ####[facility] [address] [place], [place] [address] Abbi Choudhary M.D. [id number] EGFR 52 mL/min/1.73 m2 Low >=60 [facility] Comment on above: Order Comment: [facility] has implemented the eGFR calculation approach that does not have a coefficient for race that conforms to the NKF-ASN Task Force Recommendations. Result Comment: Lorie mated GFR was calculated using the 2020 CKD-EPI creatinine equation. Performed By: #### 4 [id number] ####[facility] [address] [place], [place] [address] Abbi Choudhary M.D. [id number] Glucose [Mass/Vol] 162 mg/dL High 65-99 [facility] Comment on above: Order Comment: [facility] has implemented the eGFR calculation approach that does not have a coefficient for race that conforms to the NKF-ASN Task Force Recommendations. Performed By: #### 4 [id number] ####[facility] [address] [place], [place] [address] Abbi Choudhary M.D. [id number] HCO3 (Bld) [Moles/Vol] 27 mmol/L Normal 21-32 [facility] Comment on above: Order Comment: [facility] has implemented the eGFR calculation approach that does not have a coefficient for race that conforms to the NKF-ASN Task Force Recommendations. Performed By: #### 4 [id number] ####[facility] [address] [place], [place] [address] Abbi Choudhary M.D. [id number] Phosphate [Mass/Vol] 2.8 mg/dL Normal 2.7-4.5 [facility] Comment on above: Order Comment: [facility] has implemented the eGFR calculation approach that does not have a coefficient for race that conforms to the NKF-ASN Task Force Recommendations. Performed By: #### 4 [id number] ####[facility] [address] [place], [place] [address] Abbi Choudhary M.D. [id number] Potassium [Moles/Vol] 3.5 mmol/L Normal 3.5-5.1 [facility] Comment on above: Order Comment: [facility] has implemented the eGFR calculation approach that does not have a coefficient for race that conforms to the NKF-ASN Task Force Recommendations. Performed By: #### 4 [id number] ####[facility] [address] [place], [place] [address] Abbi Choudhary M.D. [id number] Sodium [Moles/Vol] 143 mmol/L Normal 135-145 [facility] Comment on above: Order Comment: [facility] has implemented the eGFR calculation approach that does not have a coefficient for race that conforms to the NKF-ASN Task Force Recommendations. Performed By: #### 4 [id number] ####[facility] [address] [place], [place] [address] Abbi Choudhary M.D. [id number] Urea nitrogen [Mass/Vol] 14 mg/dL Normal 8-25 [facility] Comment on above: Order Comment: [facility] has implemented the eGFR calculation approach that does not have a coefficient for race that conforms to the NKF-ASN Task Force Recommendations. Performed By: #### 4 [id number] ####[facility] [address] [place], [place] [address] Abbi Choudhary M.D. [id number] Urea nitrogen/Creatinine [Mass ratio] 10.9 mg/mg Normal 10.0-20.0 [facility] Comment on above: Order Comment: [facility] has implemented the eGFR calculation approach that does not have a coefficient for race that conforms to the NKF-ASN Task Force Recommendations. Performed By: #### 4 [id number] ####[facility] [address] [place], [place] [address] Abbi Choudhary M.D. [id number] Renal function 2000 panelon 04-01-2024 Albumin [Mass/Vol] 3.3 g/dL 3.2 - 5.2 g/dL [facility] Anion gap [Moles/Vol] 12 mmol/L 10 - 2 0 mmol/L [facility] Calcium [Mass/Vol] 8.6 mg/dL 8.4 - 10. 2 mg/dL [facility] Chloride [Moles/Vol] 108 mmol/L 98 - 10 8 mmol/L [facility] Creatinine [Mass/Vol] 1.28 mg/dL High 0.40 - 1.10 mg/dL [facility] GFR/1.73 sq M.predicted CKD-EPI (S/P/Bld) [Vol rate/Area] 52 Low - PINF [facility] Glucose [Mass/Vol] 162 mg/dL High 65 - 99 mg/dL [facility] HCO3 [Moles/Vol] 27 mmol/L 21 - 32 mmol/L [facility] Interpretation and review of laboratory results Abnormal [facility] Phosphate [Mass/Vol] 2.8 mg/dL 2.7 - 4 .5 mg/dL [facility] Potassium [Moles/Vol] 3.5 mmol/L 3.5 - 5.1 mmol/L [facility] Sodium [Moles/Vol] 143 mmol/L 135 - 145 mmol/L [facility] Urea nitrogen [Mass/Vol] 14 mg/dL 8 - 25 mg/dL [facility] Urea nitrogen/Creatinine [Mass ratio] 10.9 mg/mg 10.0 - 20.0 [facility] SURGICAL SITE AEROBIC CULTUR Turner 04-01-2024 SURGICAL SITE AEROBIC CULTURE AEROBIC CULTURE STAPHYLOCOCCUS EPIDERMIDIS Rare growth Staphylococcus epidermidis See susceptibility from same source/same date. GRAM STAIN RESULT Many WBC Many RBC No Organisms Seen Abnormal [facility] Comment on above: Performed By: #### L [id number] ####[facility] [address] [place] [address] Swapnil Brewer M.D. [id number] TISSUE EXAMon 04-01-2024 TISSUE EXAM Normal [facility] Comment on above: Performed By: #### 4 [id number] ####[facility] [address] [place], [place] [address] Abbi Choudhary M.D. [id number] [address] [place] [address] Swapnil Brewer M.D. [id number] Wound Aerobic And Anaerobic CultureOrdered By: Gayla Cook on 04-01-2024 Bacteria identified Aer cx Nom (Unsp spec) No Anaerobic Growth after 5 days [facility] Bacteria identified Aer cx Nom (Unsp spec) Light Growth Staphylococcus aureus Abnormal [facility] Bacteria identified Aer cx Nom (Unsp spec) Light Growth Normal Skin Eric [facility] Interpretation and review of laboratory results Abnormal [facility] Microscopic observation Gram stain Nom (Unsp spec) No WBC Seen [facility] Microscopic observation Gram stain Nom (Unsp spec) No Organisms Seen [facility] XR FOOT LEFT 3+ VIEWS (STAND ILIA)on 04-01-2024 XR FOOT LEFT 3+ VIEWS (STANDARD) Normal [facility] Comment on above: Order Comment: Injur y/Trauma or Illness?:Illness/OtherHow long have you had these symptoms (acute/chronic)?:AcuteReason for exam?:Status post amputation left hallux distal phalanxHistory of cancer?:uSurgeries, chemotherapy, or radiation?:pacemakerType of Exam?:InitialAdditional signs and symptoms?:Status post amputation left hallux distal phalanx XR Foot - left 3 [facility] Radiology Study observation (narrative) [facility] CBCon 03-31-2024 AUTO NRBC 0.0 % Normal [facility] Comment on above: Performed By: #### [id number] #### LAB [address] [place], [place] [address] Abbi Choudhary M.D. [id number] AUTO NRBC ABS COUNT 0.00 K/mcL Normal 0.00-0.00 [facility] Comment on above: Performed By: #### 4 [id number] ####[facility] [address] [place], [place] [address] Abbi Choudhary M.D. [id number] Erythrocyte distribution width (RBC) [Ratio] 12.6 % Normal 11.6-14.8 [facility] Comment on above: Performed By: #### 4 [id number] ####[facility] [address] [place], [place] [address] Abbi Choudhary M.D. [id number] Hematocrit (Bld) [Volume fraction] 26.9 % Low 36.0-46.0 [facility] Comment on above: Performed By: #### 4 [id number] ####[facility] [address] [place], [place] [address] Abbi Choudhary M.D. [id number] Hemoglobin (Bld) [Mass/Vol] 9.1 g/dL Low 12.0-16.0 [facility] Comment on above: Performed By: #### 4 [id number] ####[facility] [address] [place], [place] [address] Abbi Choudhary M.D. [id number] MCH (RBC) [Entitic mass] 31.8 pg Normal 26.0-34.0 [facility] Comment on above: Performed By: #### 4 [id number] ####[facility] [address] [place], [place] [address] Abbi Choudhary M.D. [id number] MCV (RBC) [Entitic vol] 94.1 fL Normal 80.0-100.0 [facility] Comment on above: Performed By: #### 4 [id number] ####[facility] [address] [place], [place] [address] Abbi Choudhary M.D. [id number] MEAN CORPUSCULAR HEMOGLOBIN CONC 33.8 g/dL Normal 31.0-37.0 [facility] Comment on above: Performed By: #### 4 [id number] ####[facility] [address] [place], [place] [address] Abbi Choudhary M.D. [id number] Platelet mean volume (Bld) [Entitic vol] 9.6 fL Normal 9.4-12.4 [facility] Comment on above: Performed By: #### 4 [id number] ####[facility] [address] [place], [place] [address] Abbi Choudhary M.D. [id number] Platelets (Bld) [#/Vol] 266 10*3/uL Normal 150-400 [facility] Comment on above: Performed By: #### 4 [id number] ####[facility] [address] [place], [place] [address] Abbi Choudhary M.D. [id number] RBC (Bld) [#/Vol] 2.86 10*6/uL Low 4.00-5.20 [facility] Comment on above: Performed By: #### 4 [id number] ####[facility] [address] [place], [place] [address] Abbi Choudhary M.D. [id number] WBC (Bld) [#/Vol] 6.83 10*3/uL Normal 4.50-11.00 [facility] Comment on above: Performed By: #### 4 [id number] ####[facility] [address] [place], [place] [address] Abbi Choudhary M.D. [id number] CBC panel Auto (Bld)on 03-31 Erythrocyte distribution width (RBC) [Entitic vol] 12.6 % 11.6 - 14.8 % [facility] Hematocrit (Bld) [Volume fraction] 26.9 % Low 36.0 - 46.0 % [facility] Hemoglobin (Bld) [Mass/Vol] 9.1 g/dL Low 12.0 - 16.0 g/dL [facility] Interpretation and review of laboratory results Abnormal [facility] MCH (RBC) [Entitic mass] 31.8 pg 26.0 - 34.0 pg [facility] MCHC (RBC) [Mass/Vol] 33.8 g/dL 31.0 - 37.0 g/dL [facility] MCV (RBC) [Entitic vol] 94.1 fL 80.0 - 100.0 fL [facility] Nucleated RBC (Bld) [#/Vol] 0 10*3/uL [facility] Nucleated RBC/100 WBC (Bld) [Ratio] 0 % [facility] Platelet mean volume (Bld) [Entitic vol] 9.6 fL 9.4 - 12.4 fL [facility] Platelets (Bld) [#/Vol] 266 10*3/uL [facility] RBC (Bld) [#/Vol] 2.86 10*6/uL Low [facility] WBC (Bld) [#/Vol] 6.83 10*3/uL [facility] ABDOMEN PELVIS WITHOUT CO NTRASTon 03-31-2024 CT ABDOMEN PELVIS WITHOUT CONTRAST Normal [facility] Comment on above: Order Comment: Injur y/Trauma or Illness?:Illness/OtherHow long have you had these symptoms (acute/chronic)?:AcuteReason for exam?:Abdominal/flank pain, stone suspectedType of Exam?:InitialAdditional signs and symptoms?:Abdominal/flank pain, stone suspected CT Abdomen and Pelvis WO con traston 03-31-2024 GE RIS GE RIS [facility] Radiology Study observation (narrative) [facility] CT Abdomen and Pelvis WO con trastOrdered By: Lawrence Coronado on 03-31-2024 [facility] Work Phone: CT FOOT LEFT WITHOUT CONTRAS Ton 03-31-2024 CT FOOT LEFT WITHOUT CONTRAST Normal [facility] Comment on above: Order Comment: Injur y/Trauma or Illness?:Illness/OtherHow long have you had these symptoms (acute/chronic)?:AcuteReason for exam?:osteomyelitisType of Exam?:InitialAdditional signs and symptoms?:foot pain CT Foot - left WO contraston 03-31-2024 Radiology Study observation (narrative) [facility] RENAL FUNCTION PANELon 03-31 Albumin [Mass/Vol] 3.1 g/dL Low 3.2-5.2 [facility] Comment on above: Order Comment: [facility] has implemented the eGFR calculation approach that does not have a coefficient for race that conforms to the NKF-ASN Task Force Recommendations. Performed By: #### [id number] ####[facility] [address] [place], [place] [address] Abbi Choudhary M.D. [id number] Anion gap [Moles/Vol] 9 mmol/L Low 10-20 [facility] Comment on above: Order Comment: [facility] has implemented the eGFR calculation approach that does not have a coefficient for race that conforms to the NKF-ASN Task Force Recommendations. Performed By: #### 4 [id number] ####[facility] [address] [place], [place] [address] Abbi Choudhary M.D. [id number] Calcium [Mass/Vol] 8.9 mg/dL Normal 8.4-10.2 [facility] Comment on above: Order Comment: [facility] has implemented the eGFR calculation approach that does not have a coefficient for race that conforms to the NKF-ASN Task Force Recommendations. Performed By: #### [id number] ####[facility] [address] [place], [place] [address] Abbi Choudhary M.D. [id number] Chloride [Moles/Vol] 109 mmol/L High 98-108 [facility] Comment on above: Order Comment: [facility] has implemented the eGFR calculation approach that does not have a coefficient for race that conforms to the NKF-ASN Task Force Recommendations. Performed By: #### 4 [id number] ####[facility] [address] [place], [place] [address] Abbi Choudhary M.D. [id number] Creatinine [Mass/Vol] 1.22 mg/dL High 0.40-1.10 [facility] Comment on above: Order Comment: [facility] has implemented the eGFR calculation approach that does not have a coefficient for race that conforms to the NKF-ASN Task Force Recommendations. Performed By: #### 4 [id number] ####[facility] [address] [place], [place] [address] Abbi Choudhary M.D. [id number] EGFR 56 mL/min/1.73 m2 Low >=60 [facility] Comment on above: Order Comment: [facility] has implemented the eGFR calculation approach that does not have a coefficient for race that conforms to the NKF-ASN Task Force Recommendations. Result Comment: Lorie mated GFR was calculated using the 2020 CKD-EPI creatinine equation. Performed By: #### 4 [id number] ####[facility] [address] [place], [place] [address] Abbi Choudhary M.D. [id number] Glucose [Mass/Vol] 139 mg/dL High 65-99 [facility] Comment on above: Order Comment: [facility] has implemented the eGFR calculation approach that does not have a coefficient for race that conforms to the NKF-ASN Task Force Recommendations. Performed By: #### 4 [id number] ####[facility] [address] [place], [place] [address] Abbi Choudhary M.D. [id number] HCO3 (Bld) [Moles/Vol] 28 mmol/L Normal 21-32 [facility] Comment on above: Order Comment: [facility] has implemented the eGFR calculation approach that does not have a coefficient for race that conforms to the NKF-ASN Task Force Recommendations. Performed By: #### 4 [id number] ####[facility] [address] [place], [place] [address] Abbi Choudhary M.D. [id number] Phosphate [Mass/Vol] 2.7 mg/dL Normal 2.7-4.5 [facility] Comment on above: Order Comment: [facility] has implemented the eGFR calculation approach that does not have a coefficient for race that conforms to the NKF-ASN Task Force Recommendations. Performed By: #### 4 [id number] ####[facility] [address] [place], [place] [address] Abbi Choudhary M.D. [id number] Potassium [Moles/Vol] 3.4 mmol/L Low 3.5-5.1 [facility] Comment on above: Order Comment: [facility] has implemented the eGFR calculation approach that does not have a coefficient for race that conforms to the NKF-ASN Task Force Recommendations. Performed By: #### 4 [id number] ####[facility] [address] [place] [address] Abbi Choudhary M.D. [id number] Sodium [Moles/Vol] 143 mmol/L Normal 135-145 [facility] Comment on above: Order Comment: [facility] has implemented the eGFR calculation approach that does not have a coefficient for race that conforms to the NKF-ASN Task Force Recommendations. Performed By: #### 4 [id number] ####[facility] [address] [place], [place] [address] Abbi Choudhary M.D. [id number] Urea nitrogen [Mass/Vol] 20 mg/dL Normal 8-25 [facility] Comment on above: Order Comment: [facility] has implemented the eGFR calculation approach that does not have a coefficient for race that conforms to the NKF-ASN Task Force Recommendations. Performed By: #### 4 [id number] ####[facility] [address] [place], [place] [address]Alisia Choudhary M.D. [id number] Urea nitrogen/Creatinine [Mass ratio] 16.4 mg/mg Normal 10.0-20.0 [facility] Comment on above: Order Comment: [facility] has implemented the eGFR calculation approach that does not have a coefficient for race that conforms to the NKF-ASN Task Force Recommendations. Performed By: #### 4 [id number] ####[facility] [address] [place] [address] Abbi Choudhary M.D. [id number] Renal function 2000 panelon 03-31-2024 Albumin [Mass/Vol] 3.1 g/dL Low 3.2 - 5.2 g/dL [facility] Anion gap [Moles/Vol] 9 mmol/L Low 10 - 2 0 mmol/L [facility] Calcium [Mass/Vol] 8.9 mg/dL 8.4 - 10. 2 mg/dL [facility] Chloride [Moles/Vol] 109 mmol/L High 98 - 10 8 mmol/L [facility] Creatinine [Mass/Vol] 1.22 mg/dL High 0.40 - 1.10 mg/dL [facility] GFR/1.73 sq M.predicted CKD-EPI (S/P/Bld) [Vol rate/Area] 56 Low - PINF [facility] Glucose [Mass/Vol] 139 mg/dL High 65 - 99 mg/dL [facility] HCO3 [Moles/Vol] 28 mmol/L 21 - 32 mmol/L [facility] Interpretation and review of laboratory results Abnormal [facility] Phosphate [Mass/Vol] 2.7 mg/dL 2.7 - 4 .5 mg/dL [facility] Potassium [Moles/Vol] 3.4 mmol/L Low 3.5 - 5.1 mmol/L [facility] Sodium [Moles/Vol] 143 mmol/L 135 - 145 mmol/L [facility] Urea nitrogen [Mass/Vol] 20 mg/dL 8 - 25 mg/dL [facility] Urea nitrogen/Creatinine [Mass ratio] 16.4 mg/mg 10.0 - 20.0 [facility] Bacteria identified Cx Nom ( Bld)on 03-30-2024 Interpretation and review of laboratory results Normal [facility] CBCon 03-30-2024 AUTO NRBC 0.0 % Normal [facility] Comment on above: Performed By: #### [id number] ####[facility] [address] [place], [place] [address] Abbi Choudhary M.D. [id number] AUTO NRBC ABS COUNT 0.00 K/mcL Normal 0.00-0.00 [facility] Comment on above: Performed By: #### 4 [id number] ####[facility] [address] [place], [place] [address] Abbi Choudhary M.D. [id number] Erythrocyte distribution width (RBC) [Ratio] 12.6 % Normal 11.6-14.8 [facility] Comment on above: Performed By: #### 4 [id number] ####[facility] [address] [place], [place] [address] Abbi Choudhary M.D. [id number] Hematocrit (Bld) [Volume fraction] 29.7 % Low 36.0-46.0 [facility] Comment on above: Performed By: #### 4 [id number] ####[facility] [address] [place], [place] [address] Abbi Choudhary M.D. [id number] Hemoglobin (Bld) [Mass/Vol] 9.4 g/dL Low 12.0-16.0 [facility] Comment on above: Performed By: #### 4 [id number] ####[facility] [address] [place], [place] [address] Abbi Choudhary M.D. [id number] MCH (RBC) [Entitic mass] 30.2 pg Normal 26.0-34.0 [facility] Comment on above: Performed By: #### 4 [id number] ####[facility] [address] [place], [place] [address] Abbi Choudhary M.D. [id number] MCV (RBC) [Entitic vol] 95.5 fL Normal 80.0-100.0 [facility] Comment on above: Performed By: #### 4 [id number] ####[facility] [address] [place], [place] [address] Abbi Choudhary M.D. [id number] MEAN CORPUSCULAR HEMOGLOBIN CONC 31.6 g/dL Normal 31.0-37.0 [facility] Comment on above: Performed By: #### 4 [id number] ####[facility] [address] [place], [place] [address] Abbi Choudhary M.D. [id number] Platelet mean volume (Bld) [Entitic vol] 9.6 fL Normal 9.4-12.4 [facility] Comment on above: Performed By: #### 4 [id number] ####[facility] [address] [place], [place] [address] Abbi Choudhary M.D. [id number] Platelets (Bld) [#/Vol] 263 10*3/uL Normal 150-400 [facility] Comment on above: Performed By: #### 4 [id number] ####[facility] [address] [place] [address] Abbi Choudhary M.D. [id number] RBC (Bld) [#/Vol] 3.11 10*6/uL Low 4.00-5.20 [facility] Comment on above: Performed By: #### 4 [id number] ####[facility] [address] [place] [address] Abbi Choudhary M.D. [id number] WBC (Bld) [#/Vol] 6.90 10*3/uL Normal 4.50-11.00 [facility] Comment on above: Performed By: #### 4 [id number] ####[facility] [address] [place], [place] [address] Abbi Choudhary M.D. [id number] CBC panel Auto (Bld)on 03-30 Erythrocyte distribution width (RBC) [Entitic vol] 12.6 % 11.6 - 14.8 % [facility] Hematocrit (Bld) [Volume fraction] 29.7 % Low 36.0 - 46.0 % [facility] Hemoglobin (Bld) [Mass/Vol] 9.4 g/dL Low 12.0 - 16.0 g/dL [facility] Interpretation and review of laboratory results Abnormal [facility] MCH (RBC) [Entitic mass] 30.2 pg 26.0 - 34.0 pg [facility] MCHC (RBC) [Mass/Vol] 31.6 g/dL 31.0 - 37.0 g/dL [facility] MCV (RBC) [Entitic vol] 95.5 fL 80.0 - 100.0 fL [facility] Nucleated RBC (Bld) [#/Vol] 0 10*3/uL [facility] Nucleated RBC/100 WBC (Bld) [Ratio] 0 % [facility] Platelet mean volume (Bld) [Entitic vol] 9.6 fL 9.4 - 12.4 fL [facility] Platelets (Bld) [#/Vol] 263 10*3/uL [facility] RBC (Bld) [#/Vol] 3.11 10*6/uL Low [facility] ealth WBC (Bld) [#/Vol] 6.9 10*3/uL [facility] alth [facility] CONSULTon 03-30-2024 CONSULT Normal [facility] Glucose (Bld) [Mass/Vol]on 05-30-2023 Glucose [Mass/Vol] 250 mg/dL High 65 - 99 mg/dL [facility] Interpretation and review of laboratory results Abnormal [facility] Glucose [Mass/Vol] 102 mg/dL High 65 - 99 mg/dL [facility] Interpretation and review of laboratory results Abnormal [facility] Glucose [Mass/Vol] 183 mg/dL High 65 - 99 mg/dL [facility] Interpretation and review of laboratory results Abnormal [facility] Glucose [Mass/Vol] 285 mg/dL High 65 - 99 mg/dL [facility] Interpretation and review of laboratory results Abnormal [facility] - Microbiology an d Antimicrobial susceptibilityon 03-30-2024 Bacteria identified Cx Nom (Bld) No Growth after 5 days [facility] h POC GLUCOSE - [facility] 024 Glucose [Mass/Vol] 250 mg/dL [address] Comment on above: Performed By: #### [id number] ####[facility] [address] [place], [place] [address] Abbi Choudhary M.D. [id number] Glucose [Mass/Vol] 102 mg/dL [address] Comment on above: Performed By: #### 4 [id number] ####[facility] [address] [place], [place] [address] Abbi Choudhary M.D. [id number] Glucose [Mass/Vol] 183 mg/dL [address] Comment on above: Performed By: #### 4 [id number] ####[facility] [address] [place], [place] [address] Abbi Choudhary M.D. [id number] Glucose [Mass/Vol] 285 mg/dL High 65-99 [facility] Comment on above: Performed By: #### 4 [id number] ####[facility] [address] [place], [place] [address] Abbi Choudhary M.D. [id number] RENAL FUNCTION PANELon 03-30 Albumin [Mass/Vol] 3.3 g/dL Normal 3.2-5.2 [facility] Comment on above: Order Comment: [facility] has implemented the eGFR calculation approach that does not have a coefficient for race that conforms to the NKF-ASN Task Force Recommendations. Performed By: #### 4 [id number] ####[facility] [address] [place], [place] [address] Abbi Choudhary M.D. [id number] Anion gap [Moles/Vol] 11 mmol/L Normal 10-20 [facility] Comment on above: Order Comment: [facility] has implemented the eGFR calculation approach that does not have a coefficient for race that conforms to the NKF-ASN Task Force Recommendations. Performed By: #### 4 [id number] ####[facility] [address] [place], [place] [address] Abbi Choudhary M.D. [id number] Calcium [Mass/Vol] 9.1 mg/dL Normal 8.4-10.2 [facility] Comment on above: Order Comment: [facility] has implemented the eGFR calculation approach that does not have a coefficient for race that conforms to the NKF-ASN Task Force Recommendations. Performed By: #### 4 [id number] ####[facility] [address] [place], [place] [address] Abbi Choudhary M.D. [id number] Chloride [Moles/Vol] 108 mmol/L Normal 98-108 [facility] Comment on above: Order Comment: [facility] has implemented the eGFR calculation approach that does not have a coefficient for race that conforms to the NKF-ASN Task Force Recommendations. Performed By: #### 4 [id number] ####[facility] [address] [place], [place] [address] Abbi Choudhary M.D. [id number] Creatinine [Mass/Vol] 1.67 mg/dL High 0.40-1.10 [facility] Comment on above: Order Comment: [facility] has implemented the eGFR calculation approach that does not have a coefficient for race that conforms to the NKF-ASN Task Force Recommendations. Performed By: #### 4 [id number] ####[facility] [address] [place], [place] [address] Abbi Choudhary M.D. [id number] EGFR 38 mL/min/1.73 m2 Low >=60 [facility] Comment on above: Order Comment: [facility] has implemented the eGFR calculation approach that does not have a coefficient for race that conforms to the NKF-ASN Task Force Recommendations. Result Comment: Lorie mated GFR was calculated using the 2020 CKD-EPI creatinine equation. Performed By: #### 4 [id number] ####[facility] [address] [place], [place] [address] Abbi Choudhary M.D. [id number] Glucose [Mass/Vol] 301 mg/dL High 65-99 [facility] Comment on above: Order Comment: [facility] has implemented the eGFR calculation approach that does not have a coefficient for race that conforms to the NKF-ASN Task Force Recommendations. Performed By: #### 4 [id number] ####[facility] [address] [place], [place] [address] Abbi Choudhary M.D. [id number] HCO3 (Bld) [Moles/Vol] 24 mmol/L Normal 21-32 [facility] Comment on above: Order Comment: [facility] has implemented the eGFR calculation approach that does not have a coefficient for race that conforms to the NKF-ASN Task Force Recommendations. Performed By: #### 4 [id number] ####[facility] [address] [place], [place] [address] Abbi Choudhary M.D. [id number] Phosphate [Mass/Vol] 3.0 mg/dL Normal 2.7-4.5 [facility] Comment on above: Order Comment: [facility] has implemented the eGFR calculation approach that does not have a coefficient for race that conforms to the NKF-ASN Task Force Recommendations. Performed By: #### 4 [id number] ####[facility] [address] [place], [place] [address] Abbi Choudhary M.D. [id number] Potassium [Moles/Vol] 4.1 mmol/L Normal 3.5-5.1 [facility] Comment on above: Order Comment: [facility] has implemented the eGFR calculation approach that does not have a coefficient for race that conforms to the NKF-ASN Task Force Recommendations. Performed By: #### 4 [id number] ####[facility] [address] [place], [place] [address] Abbi Choudhary M.D. [id number] Sodium [Moles/Vol] 139 mmol/L Normal 135-145 [facility] Comment on above: Order Comment: [facility] has implemented the eGFR calculation approach that does not have a coefficient for race that conforms to the NKF-ASN Task Force Recommendations. Performed By: #### 4 [id number] ####[facility] [address] [place], [place] [address] Abbi Choudhary M.D. [id number] Urea nitrogen [Mass/Vol] 29 mg/dL High 8-25 [facility] Comment on above: Order Comment: [facility] has implemented the eGFR calculation approach that does not have a coefficient for race that conforms to the NKF-ASN Task Force Recommendations. Performed By: #### 4 [id number] ####[facility] [address] [place], [place] [address] Abbi Choudhary M.D. [id number] Urea nitrogen/Creatinine [Mass ratio] 17.4 mg/mg Normal 10.0-20.0 [facility] Comment on above: Order Comment: [facility] has implemented the eGFR calculation approach that does not have a coefficient for race that conforms to the NKF-ASN Task Force Recommendations. Performed By: #### 4 [id number] ####[facility] [address] [place], [place] [address] Abbi Choudhary M.D. [id number] Renal function 2000 panelon 03-30-2024 Albumin [Mass/Vol] 3.3 g/dL 3.2 - 5.2 g/dL [facility] Anion gap [Moles/Vol] 11 mmol/L 10 - 2 0 mmol/L [facility] Calcium [Mass/Vol] 9.1 mg/dL 8.4 - 10. 2 mg/dL [facility] Chloride [Moles/Vol] 108 mmol/L 98 - 10 8 mmol/L [facility] Creatinine [Mass/Vol] 1.67 mg/dL High 0.40 - 1.10 mg/dL [facility] GFR/1.73 sq M.predicted CKD-EPI (S/P/Bld) [Vol rate/Area] 38 Low - PINF [facility] Glucose [Mass/Vol] 301 mg/dL High 65 - 99 mg/dL [facility] HCO3 [Moles/Vol] 24 mmol/L 21 - 32 mmol/L [facility] Interpretation and review of laboratory results Abnormal [facility] Phosphate [Mass/Vol] 3 mg/dL 2.7 - 4 .5 mg/dL [facility] Potassium [Moles/Vol] 4.1 mmol/L 3.5 - 5.1 mmol/L [facility] Sodium [Moles/Vol] 139 mmol/L 135 - 145 mmol/L [facility] Urea nitrogen [Mass/Vol] 29 mg/dL High 8 - 25 mg/dL [facility] Urea nitrogen/Creatinine [Mass ratio] 17.4 mg/mg 10.0 - 20.0 [facility] Wound Aerobic And Anaerobic CultureOrdered By: Zayda Smith on 03-30-2024 Bacteria identified Aer cx Nom (Unsp spec) No Growth after 5 days [facility] h Microscopic observation Gram stain Nom (Unsp spec) Few WBC [facility] Microscopic observation Gram stain Nom (Unsp spec) Many RBC [facility] Microscopic observation Gram stain Nom (Unsp spec) No [facility] CBCon 03-29-2024 AUTO NRBC 0.0 % Normal [facility] Comment on above: Performed By: #### [id number] ####[facility] [address] [place] [id number] Abbi Choudhary M.D. [id number] AUTO NRBC ABS COUNT 0.00 K/mcL Normal 0.00-0.00 [facility] Comment on above: Performed By: #### 4 [id number] ####[facility] [address] [place], [place] [address] Abbi Choudhary M.D. [id number] Erythrocyte distribution width (RBC) [Ratio] 12.7 % Normal 11.6-14.8 [facility] Comment on above: Performed By: #### 4 [id number] ####[facility] [address] [place], [place] [address] Abbi Choudhary M.D. [id number] Hematocrit (Bld) [Volume fraction] 28.0 % Low 36.0-46.0 [facility] Comment on above: Performed By: #### 4 [id number] ####[facility] [address] [place], [place] [address] Abbi Choudhary M.D. [id number] Hemoglobin (Bld) [Mass/Vol] 8.8 g/dL Low 12.0-16.0 [facility] Comment on above: Performed By: #### 4 [id number] ####[facility] [address] [place], [place] [address] Abbi Choudhary M.D. [id number] MCH (RBC) [Entitic mass] 30.6 pg Normal 26.0-34.0 [facility] Comment on above: Performed By: #### 4 [id number] ####[facility] [address] [place], [place] [address] Abbi Choudhary M.D. [id number] MCV (RBC) [Entitic vol] 97.2 fL Normal 80.0-100.0 [facility] Comment on above: Performed By: #### 4 [id number] ####[facility] [address] [place], [place] [address] Abbi Choudhary M.D. [id number] MEAN CORPUSCULAR HEMOGLOBIN CONC 31.4 g/dL Normal 31.0-37.0 [facility] Comment on above: Performed By: #### 4 [id number] ####[facility] [address] [place], [place] [address] Abbi Choudhary M.D. [id number] Platelet mean volume (Bld) [Entitic vol] 9.5 fL Normal 9.4-12.4 [facility] Comment on above: Performed By: #### 4 [id number] ####[facility] [address] [place], [place] [address] Abbi Choudhary M.D. [id number] Platelets (Bld) [#/Vol] 264 10*3/uL Normal 150-400 [facility] Comment on above: Performed By: #### 4 [id number] ####[facility] [address] [place], [place] [address] Abbi Choudhary M.D. [id number] RBC (Bld) [#/Vol] 2.88 10*6/uL Low 4.00-5.20 [facility] Comment on above: Performed By: #### 4 [id number] ####[facility] [address] [place], [place] [address] Abbi Choudhary M.D. [id number] WBC (Bld) [#/Vol] 7.18 10*3/uL Normal 4.50-11.00 [facility] Comment on above: Performed By: #### 4 [id number] ####[facility] [address] [place], [place] [address] Abbi Choudhary M.D. [id number] CBC panel Auto (Bld)on 03-29 Erythrocyte distribution width (RBC) [Entitic vol] 12.7 % 11.6 - 14.8 % [facility] [place] Hematocrit (Bld) [Volume fraction] 28 % Low 36.0 - 46.0 % [facility] Hemoglobin (Bld) [Mass/Vol] 8.8 g/dL Low 12.0 - 16.0 g/dL [facility] Interpretation and review of laboratory results Abnormal [facility] MCH (RBC) [Entitic mass] 30.6 pg 26.0 - 34.0 pg [facility] MCHC (RBC) [Mass/Vol] 31.4 g/dL 31.0 - 37.0 g/dL [facility] MCV (RBC) [Entitic vol] 97.2 fL 80.0 - 100.0 fL [facility] Nucleated RBC (Bld) [#/Vol] 0 10*3/uL [facility] Nucleated RBC/100 WBC (Bld) [Ratio] 0 % [facility] Platelet mean volume (Bld) [Entitic vol] 9.5 fL 9.4 - 12.4 fL [facility] Platelets (Bld) [#/Vol] 264 10*3/uL [facility] RBC (Bld) [#/Vol] 2.88 10*6/uL Low [facility] WBC (Bld) [#/Vol] 7.18 10*3/uL [facility] Glucose (Bld) [Mass/Vol]on 05-29-2023 Glucose [Mass/Vol] 245 mg/dL High 65 - 99 mg/dL [facility] Interpretation and review of laboratory results Abnormal [facility] Glucose [Mass/Vol] 172 mg/dL High 65 - 99 mg/dL [facility] Interpretation and review of laboratory results Abnormal [facility] Glucose [Mass/Vol] 177 mg/dL High 65 - 99 mg/dL [facility] Interpretation and review of laboratory results Abnormal [facility] Glucose [Mass/Vol] 186 mg/dL High 65 - 99 mg/dL [facility] Interpretation and review of laboratory results Abnormal [facility] Glucose [Mass/Vol] 268 mg/dL High 65 - 99 mg/dL [facility] Interpretation and review of laboratory results Abnormal [facility] POC GLUCOSE - [facility] 024 Glucose [Mass/Vol] 245 mg/dL High [address] [place] [address] Comment on above: Performed By: #### 4 [id number] ####[facility] [address] [place] [address] Abbi Choudhary M.D. [id number] Glucose [Mass/Vol] 172 mg/dL [address] Comment on above: Performed By: #### 4 [id number] ####[facility] [address] [place], [place] [address] Abbi Choudhary M.D. [id number] Glucose [Mass/Vol] 177 mg/dL [address] Comment on above: Performed By: #### 4 [id number] ####[facility] [address] [place], [place] [address] Abbi Choudhary M.D. [id number] Glucose [Mass/Vol] 186 mg/dL [address] Comment on above: Performed By: #### 4 [id number] ####[facility] [address] [place], [place] [address] Abbi Choudhary M.D. [id number] Glucose [Mass/Vol] 268 mg/dL High 65-99 [facility] Comment on above: Performed By: #### 4 [id number] ####[facility] [address] [place], [place] [address] Abbi Choudhary M.D. [id number] RENAL FUNCTION PANELon 03-29 Albumin [Mass/Vol] 3.0 g/dL Low 3.2-5.2 [facility] Comment on above: Order Comment: [facility] has implemented the eGFR calculation approach that does not have a coefficient for race that conforms to the NKF-ASN Task Force Recommendations. Performed By: #### 4 [id number] ####[facility] [address] [place], [place] [address] Abbi Choudhary M.D. [id number] Anion gap [Moles/Vol] 14 mmol/L Normal 10-20 [facility] Comment on above: Order Comment: [facility] has implemented the eGFR calculation approach that does not have a coefficient for race that conforms to the NKF-ASN Task Force Recommendations. Performed By: #### 4 [id number] ####[facility] [address] [place], [place] [address] Abbi Choudhary M.D. [id number] Calcium [Mass/Vol] 8.7 mg/dL Normal 8.4-10.2 [facility] Comment on above: Order Comment: [facility] has implemented the eGFR calculation approach that does not have a coefficient for race that conforms to the NKF-ASN Task Force Recommendations. Performed By: #### 4 [id number] ####[facility] [address] [place], [place] [address] Abbi Choudhary M.D. [id number] Chloride [Moles/Vol] 108 mmol/L Normal 98-108 [facility] Comment on above: Order Comment: [facility] has implemented the eGFR calculation approach that does not have a coefficient for race that conforms to the NKF-ASN Task Force Recommendations. Performed By: #### 4 [id number] ####[facility] [address] [place] [id number] Abbi Choudhary M.D. [id number] Creatinine [Mass/Vol] 2.19 mg/dL High 0.40-1.10 [facility] Comment on above: Order Comment: [facility] has implemented the eGFR calculation approach that does not have a coefficient for race that conforms to the NKF-ASN Task Force Recommendations. Performed By: #### 4 [id number] ####[facility] [address] [place], [place] [address] Abbi Choudhary M.D. [id number] EGFR 28 mL/min/1.73 m2 Low >=60 [facility] Comment on above: Order Comment: [facility] has implemented the eGFR calculation approach that does not have a coefficient for race that conforms to the NKF-ASN Task Force Recommendations. Result Comment: Lorie mated GFR was calculated using the 2020 CKD-EPI creatinine equation. Performed By: #### 4 [id number] ####[facility] [address] [place], [place] [address] Abbi Choudhary M.D. [id number] Glucose [Mass/Vol] 288 mg/dL High 65-99 [facility] Comment on above: Order Comment: [facility] has implemented the eGFR calculation approach that does not have a coefficient for race that conforms to the NKF-ASN Task Force Recommendations. Performed By: #### 4 [id number] ####[facility] [address] [place], [place] [address] Abbi Choudhary M.D. [id number] HCO3 (Bld) [Moles/Vol] 20 mmol/L Low 21-32 [facility] Comment on above: Order Comment: [facility] has implemented the eGFR calculation approach that does not have a coefficient for race that conforms to the NKF-ASN Task Force Recommendations. Performed By: #### 4 [id number] ####[facility] [address] [place], [place] [address] Abbi Choudhary M.D. [id number] Phosphate [Mass/Vol] 4.1 mg/dL Normal 2.7-4.5 [facility] Comment on above: Order Comment: [facility] has implemented the eGFR calculation approach that does not have a coefficient for race that conforms to the NKF-ASN Task Force Recommendations. Performed By: #### 4 [id number] ####[facility] [address] [place], [place] [address] Abbi Choudhary M.D. [id number] Potassium [Moles/Vol] 4.8 mmol/L Normal 3.5-5.1 [facility] Comment on above: Order Comment: [facility] has implemented the eGFR calculation approach that does not have a coefficient for race that conforms to the NKF-ASN Task Force Recommendations. Performed By: #### 4 [id number] ####[facility] [address] [place], [place] [address] Abbi Choudhary M.D. [id number] Sodium [Moles/Vol] 137 mmol/L Normal 135-145 [facility] Comment on above: Order Comment: [facility] has implemented the eGFR calculation approach that does not have a coefficient for race that conforms to the NKF-ASN Task Force Recommendations. Performed By: #### 4 [id number] ####[facility] [address] [place], [place] [address] Abbi Choudhary M.D. [id number] Urea nitrogen [Mass/Vol] 36 mg/dL High 8-25 [facility] Comment on above: Order Comment: [facility] has implemented the eGFR calculation approach that does not have a coefficient for race that conforms to the NKF-ASN Task Force Recommendations. Performed By: #### 4 [id number] ####[facility] [address] [place], [place] [address] Abbi Choudhary M.D. [id number] Urea nitrogen/Creatinine [Mass ratio] 16.4 mg/mg Normal 10.0-20.0 [facility] Comment on above: Order Comment: [facility] has implemented the eGFR calculation approach that does not have a coefficient for race that conforms to the NKF-ASN Task Force Recommendations. Performed By: #### 4 [id number] ####[facility] [address] [place], [place] Julio Choudhary M.D. [id number] Renal function 2000 panelon 03-29-2024 Albumin [Mass/Vol] 3 g/dL Low 3.2 - 5.2 g/dL [facility] Anion gap [Moles/Vol] 14 mmol/L 10 - 2 0 mmol/L [facility] Calcium [Mass/Vol] 8.7 mg/dL 8.4 - 10. 2 mg/dL [facility] Chloride [Moles/Vol] 108 mmol/L 98 - 10 8 mmol/L [facility] Creatinine [Mass/Vol] 2.19 mg/dL High 0.40 - 1.10 mg/dL [facility] GFR/1.73 sq M.predicted CKD-EPI (S/P/Bld) [Vol rate/Area] 28 Low - PINF [facility] Glucose [Mass/Vol] 288 mg/dL High 65 - 99 mg/dL [facility] HCO3 [Moles/Vol] 20 mmol/L Low 21 - 32 mmol/L [facility] Interpretation and review of laboratory results Abnormal [facility] Phosphate [Mass/Vol] 4.1 mg/dL 2.7 - 4 .5 mg/dL [facility] Potassium [Moles/Vol] 4.8 mmol/L 3.5 - 5.1 mmol/L [facility] Sodium [Moles/Vol] 137 mmol/L 135 - 145 mmol/L [facility] Urea nitrogen [Mass/Vol] 36 mg/dL High 8 - 25 mg/dL [facility] Urea nitrogen/Creatinine [Mass ratio] 16.4 mg/mg 10.0 - 20.0 [facility] CBCon 03-28-2024 AUTO NRBC 0.0 % Normal [facility] Comment on above: Performed By: #### 4 [id number] ####[facility] [address] [place] [address] Abbi Choudhary M.D. [id number] AUTO NRBC ABS COUNT 0.00 K/mcL Normal 0.00-0.00 [facility] Comment on above: Performed By: #### 4 [id number] ####[facility] [address] [place], [place] [address] Abbi Choudhary M.D. [id number] Erythrocyte distribution width (RBC) [Ratio] 13.1 % Normal 11.6-14.8 [facility] Comment on above: Performed By: #### 4 [id number] ####[facility] [address] [place], [place] [address] Abbi Choudhary M.D. [id number] Hematocrit (Bld) [Volume fraction] 29.5 % Low 36.0-46.0 [facility] Comment on above: Performed By: #### 4 [id number] ####[facility] [address] [place], [place] [address] Abbi Choudhary M.D. [id number] Hemoglobin (Bld) [Mass/Vol] 9.2 g/dL Low 12.0-16.0 [facility] Comment on above: Performed By: #### 4 [id number] ####[facility] [address] [place] [address] Abbi Choudhary M.D. [id number] MCH (RBC) [Entitic mass] 30.8 pg Normal 26.0-34.0 [facility] Comment on above: Performed By: #### 4 [id number] ####[facility] [address] [place], [place] [address] Abbi Choudhary M.D. [id number] MCV (RBC) [Entitic vol] 98.7 fL Normal 80.0-100.0 [facility] Comment on above: Performed By: #### 4 [id number] ####[facility] [address] [place], [place] [address] Abbi Choudhary M.D. [id number] MEAN CORPUSCULAR HEMOGLOBIN CONC 31.2 g/dL Normal 31.0-37.0 [facility] Comment on above: Performed By: #### 4 [id number] ####[facility] [address] [place], [place] [address] Abbi Choudhary M.D. [id number] Platelet mean volume (Bld) [Entitic vol] 9.4 fL Normal 9.4-12.4 [facility] Comment on above: Performed By: #### 4 [id number] ####[facility] [address] [place], [place] [address] Abbi Choudhary M.D. [id number] Platelets (Bld) [#/Vol] 282 10*3/uL Normal 150-400 [facility] Comment on above: Performed By: #### 4 [id number] ####[facility] [address] [place], [place] [address] Abbi Choudhary M.D. [id number] RBC (Bld) [#/Vol] 2.99 10*6/uL Low 4.00-5.20 [facility] Comment on above: Performed By: #### 4 [id number] ####[facility] [address] [place], [place] [address] Abbi Choudhary M.D. [id number] WBC (Bld) [#/Vol] 7.07 10*3/uL Normal 4.50-11.00 [facility] Comment on above: Performed By: #### 4 [id number] ####[facility] [address] [place], [place] [address] Abbi Choudhary M.D. [id number] CBC panel Auto (Bld)on 03-28 Erythrocyte distribution width (RBC) [Entitic vol] 13.1 % 11.6 - 14.8 % [facility] Hematocrit (Bld) [Volume fraction] 29.5 % Low 36.0 - 46.0 % [facility] Hemoglobin (Bld) [Mass/Vol] 9.2 g/dL Low 12.0 - 16.0 g/dL [facility] Interpretation and review of laboratory results Abnormal [facility] MCH (RBC) [Entitic mass] 30.8 pg 26.0 - 34.0 pg [facility] MCHC (RBC) [Mass/Vol] 31.2 g/dL 31.0 - 37.0 g/dL [facility] MCV (RBC) [Entitic vol] 98.7 fL 80.0 - 100.0 fL [facility] Nucleated RBC (Bld) [#/Vol] 0 10*3/uL [facility] Nucleated RBC/100 WBC (Bld) [Ratio] 0 % [facility] Platelet mean volume (Bld) [Entitic vol] 9.4 fL 9.4 - 12.4 fL [facility] Platelets (Bld) [#/Vol] 282 10*3/uL [facility] RBC (Bld) [#/Vol] 2.99 10*6/uL Low [facility] WBC (Bld) [#/Vol] 7.07 10*3/uL [facility] Glucose (Bld) [Mass/Vol]on 05-28-2023 Glucose [Mass/Vol] 170 mg/dL High 65 - 99 mg/dL [facility] Interpretation and review of laboratory results Abnormal [facility] Glucose [Mass/Vol] 226 mg/dL High 65 - 99 mg/dL [facility] Interpretation and review of laboratory results Abnormal [facility] Glucose [Mass/Vol] 248 mg/dL High 65 - 99 mg/dL [facility] Interpretation and review of laboratory results Abnormal [facility] Glucose [Mass/Vol] 275 mg/dL High 65 - 99 mg/dL [facility] Interpretation and review of laboratory results Abnormal [facility] Glucose [Mass/Vol] 274 mg/dL High 65 - 99 mg/dL [facility] Interpretation and review of laboratory results Abnormal [facility] POC GLUCOSE - [facility] 024 Glucose [Mass/Vol] 170 mg/dL High [address] [place] [address] Comment on above: Performed By: #### 4 [id number] ####[facility] [address] [place], [place] [address] Abbi Choudhary M.D. [id number] Glucose [Mass/Vol] 226 mg/dL [address] Comment on above: Performed By: #### 4 [id number] ####[facility] [address] [place], [place] [address] Abbi Choudhary M.D. [id number] Glucose [Mass/Vol] 248 mg/dL [address] Comment on above: Performed By: #### 4 [id number] ####[facility] [address] [place], [place] [address] Abbi Choudhary M.D. [id number] Glucose [Mass/Vol] 274 mg/dL [address] Comment on above: Performed By: #### 4 [id number] ####[facility] [address] [place], [place] [address] Abbi Choudhary M.D. [id number] RENAL FUNCTION PANELon 03-28 Albumin [Mass/Vol] 3.3 g/dL Normal 3.2-5.2 [facility] Comment on above: Order Comment: [facility] has implemented the eGFR calculation approach that does not have a coefficient for race that conforms to the NKF-ASN Task Force Recommendations. Performed By: #### 4 [id number] ####[facility] [address] [place], [place] [address] Abbi Choudhary M.D. [id number] Anion gap [Moles/Vol] 15 mmol/L Normal 10-20 [facility] Comment on above: Order Comment: [facility] has implemented the eGFR calculation approach that does not have a coefficient for race that conforms to the NKF-ASN Task Force Recommendations. Performed By: #### 4 [id number] ####[facility] [address] [place], [place] [address] Abbi Choudhary M.D. [id number] Calcium [Mass/Vol] 8.5 mg/dL Normal 8.4-10.2 [facility] Comment on above: Order Comment: [facility] has implemented the eGFR calculation approach that does not have a coefficient for race that conforms to the NKF-ASN Task Force Recommendations. Performed By: #### 4 [id number] ####[facility] [address] [place], [place] [address] Abbi Choudhary M.D. [id number] Chloride [Moles/Vol] 107 mmol/L Normal 98-108 [facility] Comment on above: Order Comment: [facility] has implemented the eGFR calculation approach that does not have a coefficient for race that conforms to the NKF-ASN Task Force Recommendations. Performed By: #### 4 [id number] ####[facility] [address] [place], [place] [address] Abbi Choudhary M.D. [id number] Creatinine [Mass/Vol] 2.47 mg/dL High 0.40-1.10 [facility] Comment on above: Order Comment: [facility] has implemented the eGFR calculation approach that does not have a coefficient for race that conforms to the NKF-ASN Task Force Recommendations. Performed By: #### 4 [id number] ####[facility] [address] [place], [place] [address] Abbi Choudhary M.D. [id number] EGFR 24 mL/min/1.73 m2 Low >=60 [facility] Comment on above: Order Comment: [facility] has implemented the eGFR calculation approach that does not have a coefficient for race that conforms to the NKF-ASN Task Force Recommendations. Result Comment: Lorie mated GFR was calculated using the 2020 CKD-EPI creatinine equation. Performed By: #### 4 [id number] ####[facility] [address] [place], [place] [address] Abbi Choudhary M.D. [id number] Glucose [Mass/Vol] 281 mg/dL High 65-99 [facility] Comment on above: Order Comment: [facility] has implemented the eGFR calculation approach that does not have a coefficient for race that conforms to the NKF-ASN Task Force Recommendations. Performed By: #### 4 [id number] ####[facility] [address] [place], [place] [address] Abbi Choudhary M.D. [id number] HCO3 (Bld) [Moles/Vol] 20 mmol/L Low 21-32 [facility] Comment on above: Order Comment: [facility] has implemented the eGFR calculation approach that does not have a coefficient for race that conforms to the NKF-ASN Task Force Recommendations. Performed By: #### 4 [id number] ####[facility] [address] [place], [place] [address] Abbi Choudhary M.D. [id number] Phosphate [Mass/Vol] 4.8 mg/dL High 2.7-4.5 [facility] Comment on above: Order Comment: [facility] has implemented the eGFR calculation approach that does not have a coefficient for race that conforms to the NKF-ASN Task Force Recommendations. Performed By: #### 4 [id number] ####[facility] [address] [place], [place] [address] Abbi Choudhary M.D. [id number] Potassium [Moles/Vol] 5.3 mmol/L High 3.5-5.1 [facility] Comment on above: Order Comment: [facility] has implemented the eGFR calculation approach that does not have a coefficient for race that conforms to the NKF-ASN Task Force Recommendations. Performed By: #### 4 [id number] ####[facility] [address] [place], [place] [address] Abbi Choudhary M.D. [id number] Sodium [Moles/Vol] 137 mmol/L Normal 135-145 [facility] Comment on above: Order Comment: [facility] has implemented the eGFR calculation approach that does not have a coefficient for race that conforms to the NKF-ASN Task Force Recommendations. Performed By: #### 4 [id number] ####[facility] [address] [place], [place] [address] Abbi Choudhary M.D. [id number] Urea nitrogen [Mass/Vol] 34 mg/dL High 8-25 [facility] Comment on above: Order Comment: [facility] has implemented the eGFR calculation approach that does not have a coefficient for race that conforms to the NKF-ASN Task Force Recommendations. Performed By: #### 4 [id number] ####[facility] [address] [place], [place] [address] Abbi Choudhary M.D. [id number] Urea nitrogen/Creatinine [Mass ratio] 13.8 mg/mg Normal 10.0-20.0 [facility] Comment on above: Order Comment: [facility] has implemented the eGFR calculation approach that does not have a coefficient for race that conforms to the NKF-ASN Task Force Recommendations. Performed By: #### 4 [id number] #### LAB [address] [place], [place] [address] Abbi Choudhary M.D. [id number] Renal function 2000 [facility] 03-28-2024 Albumin [Mass/Vol] 3.3 g/dL 3.2 - 5.2 g/dL [facility] Anion gap [Moles/Vol] 15 mmol/L 10 - 2 0 mmol/L [facility] Calcium [Mass/Vol] 8.5 mg/dL 8.4 - 10. 2 mg/dL [facility] Chloride [Moles/Vol] 107 mmol/L 98 - 10 8 mmol/L [facility] Creatinine [Mass/Vol] 2.47 mg/dL High 0.40 - 1.10 mg/dL [facility] GFR/1.73 sq M.predicted CKD-EPI (S/P/Bld) [Vol rate/Area] 24 Low - PINF [facility] Glucose [Mass/Vol] 281 mg/dL High 65 - 99 mg/dL [facility] HCO3 [Moles/Vol] 20 mmol/L Low 21 - 32 mmol/L [facility] Interpretation and review of laboratory results Abnormal [facility] Phosphate [Mass/Vol] 4.8 mg/dL High 2.7 - 4 .5 mg/dL [facility] Potassium [Moles/Vol] 5.3 mmol/L High 3.5 - 5.1 mmol/L [facility] Sodium [Moles/Vol] 137 mmol/L 135 - 145 mmol/L [facility] Urea nitrogen [Mass/Vol] 34 mg/dL High 8 - 25 mg/dL [facility] Urea nitrogen/Creatinine [Mass ratio] 13.8 mg/mg 10.0 - 20.[address] [facility] Kidney - bilateral and Ur inary bladderon 03-28-2024 GE RIS GE RIS [facility] Kidney - bilateral and Ur inary bladderOrdered By: Leena Chiu on 03-28-2024 [facility] Work Phone: Bacteria identified Aer cx N om (Unsp spec)Ordered By: Keyla Guerrero on 03-27-2024 Interpretation and review of laboratory results Abnormal [facility] CBCon 03-27-2024 AUTO NRBC 0.0 % Normal [facility] Comment on above: Performed By: #### [id number] ####[facility] [address] [place] [address] Abbi Choudhary M.D. [id number] AUTO NRBC ABS COUNT 0.00 K/mcL Normal 0.00-0.00 [facility] Comment on above: Performed By: #### [id number] ####[facility] [address] [place], [place] [address] Abbi Choudhary M.D. [id number] Erythrocyte distribution width (RBC) [Ratio] 13.2 % Normal 11.6-14.8 [facility] Comment on above: Performed By: #### [id number] ####[facility] [address] [place], [place] [address] Abbi Choudhary M.D. [id number] Hematocrit (Bld) [Volume fraction] 30.8 % Low 36.0-46.0 [facility] Comment on above: Performed By: #### [id number] ####[facility] [address] [place], [place] [address] Abbi Choudhary M.D. [id number] Hemoglobin (Bld) [Mass/Vol] 9.6 g/dL Low 12.0-16.0 [facility] Comment on above: Performed By: #### 4 [id number] ####[facility] [address] [place], [place] [address] Abbi Choudhary M.D. [id number] MCH (RBC) [Entitic mass] 30.6 pg Normal 26.0-34.0 [facility] Comment on above: Performed By: #### 4 [id number] ####[facility] [address] [place], [place] [address] Abbi Choudhary M.D. [id number] MCV (RBC) [Entitic vol] 98.1 fL Normal 80.0-100.0 [facility] Comment on above: Performed By: #### 4 [id number] ####[facility] [address] [place], [place] [address] Abbi Choudhary M.D. [id number] MEAN CORPUSCULAR HEMOGLOBIN CONC 31.2 g/dL Normal 31.0-37.0 [facility] Comment on above: Performed By: #### 4 [id number] ####[facility] [address] [place], [place] [address] Abbi Choudhary M.D. [id number] Platelet mean volume (Bld) [Entitic vol] 9.4 fL Normal 9.4-12.4 [facility] Comment on above: Performed By: #### 4 [id number] ####[facility] [address] [place], [place] [address] Abbi Choudhary M.D. [id number] Platelets (Bld) [#/Vol] 308 10*3/uL Normal 150-400 [facility] Comment on above: Performed By: #### 4 [id number] ####[facility] [address] [place], [place] [address] Abbi Choudhary M.D. [id number] RBC (Bld) [#/Vol] 3.14 10*6/uL Low 4.00-5.20 [facility] Comment on above: Performed By: #### 4 [id number] ####[facility] [address] [place], [place] [address] Abbi Choudhary M.D. [id number] WBC (Bld) [#/Vol] 7.80 10*3/uL Normal 4.50-11.00 [facility] Comment on above: Performed By: #### 4 [id number] ####[facility] [address] [place], [place] [address] Abbi Choudhary M.D. [id number] CBC panel Auto (Bld)on 03-27 Erythrocyte distribution width (RBC) [Entitic vol] 13.2 % 11.6 - 14.8 % [facility] Hematocrit (Bld) [Volume fraction] 30.8 % Low 36.0 - 46.0 % [facility] Hemoglobin (Bld) [Mass/Vol] 9.6 g/dL Low 12.0 - 16.0 g/dL [facility] Interpretation and review of laboratory results Abnormal [facility] MCH (RBC) [Entitic mass] 30.6 pg 26.0 - 34.0 pg [facility] MCHC (RBC) [Mass/Vol] 31.2 g/dL 31.0 - 37.0 g/dL [facility] MCV (RBC) [Entitic vol] 98.1 fL 80.0 - 100.0 fL [facility] Nucleated RBC (Bld) [#/Vol] 0 10*3/uL [facility] Nucleated RBC/100 WBC (Bld) [Ratio] 0 % [facility] Platelet mean volume (Bld) [Entitic vol] 9.4 fL 9.4 - 12.4 fL [facility] Platelets (Bld) [#/Vol] 308 10*3/uL [facility] RBC (Bld) [#/Vol] 3.14 10*6/uL Low [facility] WBC (Bld) [#/Vol] 7.8 10*3/uL [facility] alth [facility] CK [Catalytic activity/Vol]o n 03-27-2024 Interpretation and review of laboratory results Normal [facility] COMPREHENSIVE METABOLIC PANE [place] 03-27-2024 Albumin [Mass/Vol] 3.1 g/dL Low 3.2-5.2 [facility] Comment on above: Order Comment: [facility] has implemented the eGFR calculation approach that does not have a coefficient for race that conforms to the NKF-ASN Task Force Recommendations. Performed By: #### [id number] ####[facility] [address] [place], [place] [address] Abbi Choudhary M.D. [id number] ALP [Catalytic activity/Vol] 91 U/L Normal 40-150 [facility] Comment on above: Order Comment: [facility] has implemented the eGFR calculation approach that does not have a coefficient for race that conforms to the NKF-ASN Task Force Recommendations. Performed By: #### [id number] ####[facility] [address] [place], [place] [address] Abbi Choudhary M.D. [id number] ALT [Catalytic activity/Vol] 11 U/L Normal 0-35 U/L [facility] Comment on above: Order Comment: [facility] has implemented the eGFR calculation approach that does not have a coefficient for race that conforms to the NKF-ASN Task Force Recommendations. Performed By: #### [id number] ####[facility] [address] [place], [place] [address] Abbi Choudhary M.D. [id number] Anion gap [Moles/Vol] 14 mmol/L Normal 10-20 [facility] Comment on above: Order Comment: [facility] has implemented the eGFR calculation approach that does not have a coefficient for race that conforms to the NKF-ASN Task Force Recommendations. Performed By: #### [id number] ####[facility] [address] [place], [place] [address] Abbi Choudhary M.D. [id number] AST [Catalytic activity/Vol] 11 U/L Normal 0-35 U/L [facility] Comment on above: Order Comment: [facility] has implemented the eGFR calculation approach that does not have a coefficient for race that conforms to the NKF-ASN Task Force Recommendations. Performed By: #### 4 [id number] ####[facility] [address] [place], [place] [address] Abbi Choudhary M.D. [id number] Bilirubin [Mass/Vol] 0.3 mg/dL Normal 0.0-1.3 [facility] Comment on above: Order Comment: [facility] has implemented the eGFR calculation approach that does not have a coefficient for race that conforms to the NKF-ASN Task Force Recommendations. Performed By: #### 4 [id number] ####[facility] [address] [place], [place] [address] Abbi Choudhary M.D. [id number] Calcium [Mass/Vol] 8.2 mg/dL Low 8.4-10.2 [facility] Comment on above: Order Comment: [facility] has implemented the eGFR calculation approach that does not have a coefficient for race that conforms to the NKF-ASN Task Force Recommendations. Performed By: #### [id number] ####[facility] [address] [place], [place] [address] Abbi Choudhary M.D. [id number] Chloride [Moles/Vol] 110 mmol/L High 98-108 [facility] Comment on above: Order Comment: [facility] has implemented the eGFR calculation approach that does not have a coefficient for race that conforms to the NKF-ASN Task Force Recommendations. Performed By: #### 4 [id number] ####[facility] [address] [place], [place] [address] Abbi Choudhary M.D. [id number] Creatinine [Mass/Vol] 2.53 mg/dL High 0.40-1.10 [facility] Comment on above: Order Comment: [facility] has implemented the eGFR calculation approach that does not have a coefficient for race that conforms to the NKF-ASN Task Force Recommendations. Performed By: #### [id number] ####[facility] [address] [place], [place] [address] Abbi Choudhary M.D. [id number] EGFR 23 mL/min/1.73 m2 Low >=60 [facility] Comment on above: Order Comment: [facility] has implemented the eGFR calculation approach that does not have a coefficient for race that conforms to the NKF-ASN Task Force Recommendations. Result Comment: Lorie mated GFR was calculated using the 2020 CKD-EPI creatinine equation. Performed By: #### 4 [id number] ####[facility] [address] [place], [place] [address] Abbi Choudhary M.D. [id number] Glucose [Mass/Vol] 161 mg/dL High 65-99 [facility] Comment on above: Order Comment: [facility] has implemented the eGFR calculation approach that does not have a coefficient for race that conforms to the NKF-ASN Task Force Recommendations. Performed By: #### [id number] ####[facility] [address] [place], [place] [address] Abbi Choudhary M.D. [id number] HCO3 (Bld) [Moles/Vol] 21 mmol/L Normal 21-32 [facility] Comment on above: Order Comment: [facility] has implemented the eGFR calculation approach that does not have a coefficient for race that conforms to the NKF-ASN Task Force Recommendations. Performed By: #### [id number] ####[facility] [address] [place] [address] Abbi Choudhary M.D. [id number] Potassium [Moles/Vol] 4.8 mmol/L Normal 3.5-5.1 [facility] Comment on above: Order Comment: [facility] has implemented the eGFR calculation approach that does not have a coefficient for race that conforms to the NKF-ASN Task Force Recommendations. Performed By: #### 4 [id number] ####[facility] [address] [place], [place] [address] Abbi Choudhary M.D. [id number] Protein [Mass/Vol] 5.9 g/dL Low 6.0-8.0 [facility] Comment on above: Order Comment: [facility] has implemented the eGFR calculation approach that does not have a coefficient for race that conforms to the NKF-ASN Task Force Recommendations. Performed By: #### 4 [id number] ####[facility] [address] [place], [place] [address] Abbi Choudhary M.D. [id number] Sodium [Moles/Vol] 140 mmol/L Normal 135-145 [facility] Comment on above: Order Comment: [facility] has implemented the eGFR calculation approach that does not have a coefficient for race that conforms to the NKF-ASN Task Force Recommendations. Performed By: #### [id number] ####[facility] [address] [place], [place] [address] Abbi Choudhary M.D. [id number] Urea nitrogen [Mass/Vol] 32 mg/dL High 8-25 [facility] Comment on above: Order Comment: [facility] has implemented the eGFR calculation approach that does not have a coefficient for race that conforms to the NKF-ASN Task Force Recommendations. Performed By: #### [id number] ####[facility] [address] [place], [place] [address] Abbi Choudhary M.D. [id number] Urea nitrogen/Creatinine [Mass ratio] 12.6 mg/mg Normal 10.0-20.0 [facility] Comment on above: Order Comment: [facility] has implemented the eGFR calculation approach that does not have a coefficient for race that conforms to the NKF-ASN Task Force Recommendations. Performed By: #### [id number] ####[facility] [address] [place], [place] [address] Abbi Choudhary M.D. [id number] CONSULTon 03-27-2024 CONSULT Normal [facility] CONSULT Normal [facility] CPKon 03-27-2024 CPK 56 U/L Normal 40-170 [facility] Comment on above: Performed By: #### [id number] ####[facility] [address] [place], [place] [address] Abbi Choudhary M.D. [id number] CPK NO MBon 03-27-2024 CK [Catalytic activity/Vol] 56 U/L 40 - 170 U/L [facility] Comprehensive metabolic 2000 panelon 03-27-2024 Albumin [Mass/Vol] 3.1 g/dL Low 3.2 - 5.2 g/dL [facility] ALP [Catalytic activity/Vol] 91 U/L 40 - 150 U/L [facility] ALT [Catalytic activity/Vol] 11 U/L 0-35 U/L [facility] Anion gap [Moles/Vol] 14 mmol/L 10 - 2 0 mmol/L [facility] AST [Catalytic activity/Vol] 11 U/L 0-35 U/L [facility] Bilirubin [Mass/Vol] 0.3 mg/dL 0.0 - 1 .3 mg/dL [facility] Calcium [Mass/Vol] 8.2 mg/dL Low 8.4 - 10. 2 mg/dL [facility] Chloride [Moles/Vol] 110 mmol/L High 98 - 10 8 mmol/L [facility] Creatinine [Mass/Vol] 2.53 mg/dL High 0.40 - 1.10 mg/dL [facility] GFR/1.73 sq M.predicted CKD-EPI (S/P/Bld) [Vol rate/Area] 23 Low - PINF [facility] Glucose [Mass/Vol] 161 mg/dL High 65 - 99 mg/dL [facility] HCO3 [Moles/Vol] 21 mmol/L 21 - 32 mmol/L [facility] Interpretation and review of laboratory results Abnormal [facility] Potassium [Moles/Vol] 4.8 mmol/L 3.5 - 5.1 mmol/L [facility] Protein [Mass/Vol] 5.9 g/dL Low 6.0 - 8.0 g/dL [facility] Sodium [Moles/Vol] 140 mmol/L 135 - 145 mmol/L [facility] Urea nitrogen [Mass/Vol] 32 mg/dL High 8 - 25 mg/dL [facility] Urea nitrogen/Creatinine [Mass ratio] 12.6 mg/mg 10.0 - 20.0 [facility] Glucose (Bld) [Mass/Vol]on 05-27-2023 Glucose [Mass/Vol] 131 mg/dL High 65 - 99 mg/dL [facility] Interpretation and review of laboratory results Abnormal [facility] Glucose [Mass/Vol] 177 mg/dL High 65 - 99 mg/dL [facility] Interpretation and review of laboratory results Abnormal [facility] Glucose [Mass/Vol] 223 mg/dL High 65 - 99 mg/dL [facility] Interpretation and review of laboratory results Abnormal [facility] Glucose [Mass/Vol] 267 mg/dL High 65 - 99 mg/dL [facility] Interpretation and review of laboratory results Abnormal [facility] Glucose [Mass/Vol] 135 mg/dL High 65 - 99 mg/dL [facility] Interpretation and review of laboratory results Abnormal [facility] Glucose [Mass/Vol] 275 mg/dL High 65 - 99 mg/dL [facility] Interpretation and review of laboratory results Abnormal [facility] POC GLUCOSE - RALSon 024 Glucose [Mass/Vol] 131 mg/dL High [address] [place] [address] Comment on above: Performed By: #### [id number] ####[facility] [address] [place], [place] [address] Abbi Choudhary M.D. [id number] Glucose [Mass/Vol] 177 mg/dL [address] Comment on above: Performed By: #### 4 [id number] ####[facility] [address] [place], [place] [address] Abbi Choudhary M.D. [id number] Glucose [Mass/Vol] 223 mg/dL [address] Comment on above: Performed By: #### 4 [id number] ####[facility] [address] [place], [place] [address] Abbi Choudhary M.D. [id number] Glucose [Mass/Vol] 267 mg/dL [address] Comment on above: Performed By: #### 4 [id number] ####[facility] [address] [place], [place] [address] Abbi Choudhary M.D. [id number] Glucose [Mass/Vol] 135 mg/dL [address] Comment on above: Performed By: #### 4 [id number] ####[facility] [address] [place], [place] [address] Abbi Choudhary M.D. [id number] Glucose [Mass/Vol] 275 mg/dL [address] Comment on above: Performed By: #### 4 [id number] ####[facility] [address] [place], [place] [address] Abbi Choudhary M.D. [id number] US Kidney - bilateral and Ur inary bladderon 03-27-2024 Radiology Study observation (narrative) [facility] US RENAL AND BLADDERon 03-27 US RENAL AND BLADDER Normal [facility] Comment on above: Order Comment: Injur y/Trauma or Illness?:Illness/OtherHow long have you had these symptoms (acute/chronic)?:UnknownReason for exam?:Renal failureHistory of cancer?:uSurgeries, chemotherapy, or radiation?:pacemakerType of Exam?:UnknownAdditional signs and symptoms?:no Urine Aerobic CultureOrdered By: Keyla Guerrero on 03-27-2024 Bacteria identified Aer cx Nom (Unsp spec) 50,000-100,000 CFU/mL Escherichia coli Abnormal [facility] XR CHEST LATERAL LEFTon XR CHEST LATERAL LEFT Normal [facility] Comment on above: Order Comment: Injur y/Trauma or Illness?:Illness/OtherHow long have you had these symptoms (acute/chronic)?:AcuteReason for exam?:Eval depth of port access needleHistory of cancer?:uSurgeries, chemotherapy, or radiation?:pacemakerType of Exam?:OngoingAdditional signs and symptoms?:unable to get blood return XR CHEST PA/APon 03-27-2024 XR CHEST PA/AP Normal [facility] Comment on above: Order Comment: Injur y/Trauma or Illness?:Illness/OtherHow long have you had these symptoms (acute/chronic)?:AcuteReason for exam?:port varifictionHistory of cancer?:uSurgeries, chemotherapy, or radiation?:pacemakerType of Exam?:UnknownAdditional signs and symptoms?:no XR Chest AP left lateral-dec ubituson 03-27-2024 GE RIS GE RIS [facility] Radiology Study observation (narrative) [facility] XR Chest PA and Abdomen APon 03-27-2024 GE RIS GE RIS [facility] Radiology Study observation (narrative) [facility] XR Chest PA and Abdomen APOr dered By: Jermaine Peralta on 03-27-2024 [facility] Work Phone: BASIC METABOLIC PANELon Anion gap [Moles/Vol] 16 mmol/L Normal 10-20 [facility] Comment on above: Order Comment: [facility] has implemented the eGFR calculation approach that does not have a coefficient for race that conforms to the NKF-ASN Task Force Recommendations. Performed By: #### [id number] ####[facility] [address] [place] [address] Abbi Choudhary M.D. [id number] Calcium [Mass/Vol] 8.3 mg/dL Low 8.4-10.2 [facility] Comment on above: Order Comment: [facility] has implemented the eGFR calculation approach that does not have a coefficient for race that conforms to the NKF-ASN Task Force Recommendations. Performed By: #### 4 [id number] ####[facility] [address] [place], [place] [address] Abbi Choudhary M.D. [id number] Chloride [Moles/Vol] 106 mmol/L Normal 98-108 [facility] Comment on above: Order Comment: [facility] has implemented the eGFR calculation approach that does not have a coefficient for race that conforms to the NKF-ASN Task Force Recommendations. Performed By: #### 4 [id number] ####[facility] [address] [place] [address] Abbi Choudhary M.D. [id number] Creatinine [Mass/Vol] 2.52 mg/dL High 0.40-1.10 [facility] Comment on above: Order Comment: [facility] has implemented the eGFR calculation approach that does not have a coefficient for race that conforms to the NKF-ASN Task Force Recommendations. Performed By: #### [id number] ####[facility] [address] [place], [place] [address] Abbi Choudhary M.D. [id number] EGFR 23 mL/min/1.73 m2 Low >=60 [facility] Comment on above: Order Comment: [facility] has implemented the eGFR calculation approach that does not have a coefficient for race that conforms to the NKF-ASN Task Force Recommendations. Result Comment: Lorie mated GFR was calculated using the 2020 CKD-EPI creatinine equation. Performed By: #### 4 [id number] ####[facility] [address] [place], [place] [address] Abbi Choudhary M.D. [id number] Glucose [Mass/Vol] 333 mg/dL High 65-99 [facility] Comment on above: Order Comment: [facility] has implemented the eGFR calculation approach that does not have a coefficient for race that conforms to the NKF-ASN Task Force Recommendations. Performed By: #### 4 [id number] ####[facility] [address] [place], [place] [address] Abbi Choudhary M.D. [id number] HCO3 (Bld) [Moles/Vol] 20 mmol/L Low 21-32 [facility] Comment on above: Order Comment: [facility] has implemented the eGFR calculation approach that does not have a coefficient for race that conforms to the NKF-ASN Task Force Recommendations. Performed By: #### 4 [id number] ####[facility] [address] [place], [place] [address] Abbi Choudhary M.D. [id number] Potassium [Moles/Vol] 4.8 mmol/L Normal 3.5-5.1 [facility] Comment on above: Order Comment: [facility] has implemented the eGFR calculation approach that does not have a coefficient for race that conforms to the NKF-ASN Task Force Recommendations. Performed By: #### 4 [id number] ####[facility] [address] [place], [place] [address] Abbi Choudhary M.D. [id number] Sodium [Moles/Vol] 137 mmol/L Normal 135-145 [facility] Comment on above: Order Comment: [facility] has implemented the eGFR calculation approach that does not have a coefficient for race that conforms to the NKF-ASN Task Force Recommendations. Performed By: #### [id number] ####[facility] [facility] [address] [place], [place] [address] Abbi Choudhary M.D. [id number] Urea nitrogen [Mass/Vol] 30 mg/dL High 8-25 [facility] Comment on above: Order Comment: [facility] has implemented the eGFR calculation approach that does not have a coefficient for race that conforms to the NKF-ASN Task Force Recommendations. Performed By: #### 4 [id number] ####[facility] [address] [place], [place] [address] Abbi Choudhary M.D. [id number] Urea nitrogen/Creatinine [Mass ratio] 11.9 mg/mg Normal 10.0-20.0 [facility] Comment on above: Order Comment: [facility] has implemented the eGFR calculation approach that does not have a coefficient for race that conforms to the NKF-ASN Task Force Recommendations. Performed By: #### 4 6124 ####[facility] [address] [place], [place] [address] Abbi Choudhary M.D. [id number] BETA-HYDROXYBUTYRATEon 03-26 BETA-HYDROXYBUTYRATE < Normal 0.0-0.3 [facility] Comment on above: Performed By: #### 4 5139 ####[facility] [address] [place], [place] [address] Abbi Choudhary M.D. [id number] Basic metabolic 2000 panelOr dered By: Wai Villatoro on 03-26-2024 Anion gap [Moles/Vol] 16 mmol/L 10 - 2 0 mmol/L [facility] Calcium [Mass/Vol] 8.3 mg/dL Low 8.4 - 10. 2 mg/dL [facility] Chloride [Moles/Vol] 106 mmol/L 98 - 10 8 mmol/L [facility] [place] Creatinine [Mass/Vol] 2.52 mg/dL High 0.40 - 1.10 mg/dL [facility] [place] GFR/1.73 sq M.predicted CKD-EPI (S/P/Bld) [Vol rate/Area] 23 Low - PINF [facility] Glucose [Mass/Vol] 333 mg/dL High 65 - 99 mg/dL [facility] HCO3 [Moles/Vol] 20 mmol/L Low 21 - 32 mmol/L [facility] Interpretation and review of laboratory results Abnormal [facility] Potassium [Moles/Vol] 4.8 mmol/L 3.5 - 5.1 mmol/L [facility] Sodium [Moles/Vol] 137 mmol/L 135 - 145 mmol/L [facility] Urea nitrogen [Mass/Vol] 30 mg/dL High 8 - 25 mg/dL [facility] Urea nitrogen/Creatinine [Mass ratio] 11.9 mg/mg 10.0 - 20.0 [facility] Beta hydroxybutyrate [Moles/ Vol]on 03-26-2024 Interpretation and review of laboratory results Normal [facility] Beta-Hydroxybutyrateon 03-26 Beta hydroxybutyrate [Moles/Vol] mmol/L 0.0 - 0.3 mmol/L [facility] [place] CBC (INCLUDES DIFF/PLT)on Basophils (Bld) [#/Vol] 0.073 10*3/uL Normal 0-200 [facility] Comment on above: Performed By: #### 9 1431, 15374, 866, 899, 496, 6399, 57366 #### [facility] of [place] [address] Adolescent Specialist: Dean Maddox MD Basophils/100 WBC (Bld) 0.7 % Normal [facility] Comment on above: Performed By: #### 9 1431, 06875, 866, 899, 496, 6399, 25271 #### [facility] [place] [address] Adolescent Specialist: Dean Maddox MD Eosinophils (Bld) [#/Vol] 0.354 10*3/uL Normal 15-500 [facility] Comment on above: Performed By: #### 9 1431, 75061, 866, 899, 496, 6399, 96047 #### [facility] [place] [address] Adolescent Specialist: Dean Maddox MD Eosinophils/100 WBC (Bld) 3.4 % Normal [facility] Comment on above: Performed By: #### 9 1431, 86262, 866, 899, 496, 6399, 18282 #### [facility] [place] [address] Adolescent Specialist: Dean Maddox MD Erythrocyte distribution width (RBC) [Ratio] 13.0 % Normal 11.0-15.0 [facility] Comment on above: Performed By: #### 9 1431, 49888, 866, 899, 496, 6399, 98987 #### [facility] of [place] [address] Adolescent Specialist: Dean Maddox MD Hematocrit (Bld) [Volume fraction] 40.1 % Normal 35.0-45.0 [facility] Comment on above: Performed By: #### 9 1431, 26399, 866, 899, 496, 6399, 34810 #### [facility] of [place] [address] Adolescent Specialist: Dean Maddox MD Hemoglobin (Bld) [Mass/Vol] 12.8 g/dL Normal 11.7-15.5 [facility] Comment on above: Performed By: #### 9 1431, 28739, 866, 899, 496, 6399, 37687 #### [facility] [place] [address] Adolescent Specialist: Dean Maddox MD Lymphocytes (Bld) [#/Vol] 2.007 10*3/uL Normal 850-3900 [facility] Comment on above: Performed By: #### 9 1431, 76446, 866, 899, 496, 6399, 10842 #### [facility] [place] [address] Adolescent Specialist: Dean Maddox MD Lymphocytes/100 WBC (Bld) 19.3 % Normal [facility] Comment on above: Performed By: #### 9 1431, 51628, 866, 899, 496, 6399, 84107 #### [facility] [place] [address] Adolescent Specialist: Dean Maddox MD MCH (RBC) [Entitic mass] 30.0 pg Normal 27.0-33.0 [facility] Comment on above: Performed By: #### 9 1431, 55588, 866, 899, 496, 6399, 45826 #### [facility] [place] [address] Adolescent Specialist: Dean Maddox MD MCHC (RBC) [Mass/Vol] 31.9 [...] clinical condition. Performed By: #### 9 1431, 20058, 866, 899, 496, 6399, 30234 #### [facility] [place] [address] Adolescent Specialist: Dean Maddox MD MCV (RBC) [Entitic vol] 94.1 fL Normal 80.0-100.0 [facility] Comment on above: Performed By: #### 9 1431, 90854, 866, 899, 496, 6399, 65800 #### [facility] [place] [address] Adolescent Specialist: Dean Maddox MD Monocytes (Bld) [#/Vol] 0.478 10*3/uL Normal 200-950 [facility] Comment on above: Performed By: #### 9 1431, 56894, 866, 899, 496, 6399, 31994 #### [facility] [place] [address] Adolescent Specialist: Dean Maddox MD Monocytes/100 WBC (Bld) 4.6 % Normal [facility] Comment on above: Performed By: #### 9 1431, 94613, 866, 899, 496, 6399, 11476 #### [facility] [place] [address] Adolescent Specialist: Dean Maddox MD Neutrophils (Bld) [#/Vol] 7.488 10*3/uL Normal 0258-1641 [facility] Comment on above: Performed By: #### 9 1431, 60688, 866, 899, 496, 6399, 40881 #### [facility] [place] [address] Adolescent Specialist: Dean Maddox MD Neutrophils/100 WBC (Bld) 72 % Normal [facility] Comment on above: Performed By: #### 9 1431, 51352, 866, 899, 496, 6399, 34842 #### [facility] of [place] [address] [place] [address] Adolescent Specialist: Dean Maddox MD Platelet mean volume (Bld) [Entitic vol] 9.6 fL Normal 7.5-12.5 [facility] Comment on above: Performed By: #### 9 1431, 36734, 866, 899, 496, 6399, 94038 #### [facility] [place] [address] Adolescent Specialist: Dean Maddox MD Platelets (Bld) [#/Vol] 367 10*3/uL Normal 140-400 [facility] Comment on above: Performed By: #### 9 1431, 35808, 866, 899, 496, 6399, 82745 #### [facility] [place] [address] Adolescent Specialist: Dean Maddox MD RBC (Bld) [#/Vol] 4.26 10*6/uL Normal 3.80-5.10 [facility] Comment on above: Performed By: #### 9 1431, 92208, 866, 899, 496, 6399, 47053 #### [facility] [place] [address] Adolescent Specialist: Dean Maddox MD WBC (Bld) [#/Vol] 10.4 10*3/uL Normal 3.8-10.8 [facility] Comment on above: Performed By: #### 9 1431, 63421, 866, 899, 496, 6399, 30826 #### [facility] [place] [address] Adolescent Specialist: Dean Maddox MD [facility] 03-26-2024 Albumin [Mass/Vol] 4.1 g/dL Normal 3.6-5.1 [facility] Comment on above: Order Comment: COLLE CTION KIT GIVEN TO PATIENT. PATIENT ADVISED TO RETURN. Performed By: #### 9 1431, 48238, 866, 899, 496, 6399, 95422 #### [facility] of [facility] [address], [address] [place] [address] Adolescent Specialist: Dean Maddox MD Albumin/Globulin [Mass ratio] 1.3 {ratio} Normal 1.0-2.5 [facility] Comment on above: Order Comment: COLLE CTION KIT GIVEN TO PATIENT. PATIENT ADVISED TO RETURN. Performed By: #### 9 1431, 84526, 866, 899, 496, 6399, 09382 #### [facility] [place] [address] Adolescent Specialist: Dean Maddox MD ALP [Catalytic activity/Vol] 114 U/L Normal 31-125 [facility] Comment on above: Order Comment: COLLE CTION KIT GIVEN TO PATIENT. PATIENT ADVISED TO RETURN. Performed By: #### 9 1431, 13057, 866, 899, 496, 6399, 24116 #### [facility] [place] [address] Adolescent Specialist: Dean Maddox MD ALT [Catalytic activity/Vol] 11 U/L Normal 6-29 [facility] Comment on above: Order Comment: COLLE CTION KIT GIVEN TO PATIENT. PATIENT ADVISED TO RETURN. Performed By: #### 9 1431, 57322, 866, 899, 496, 6399, 44755 #### [facility] [place] [address] Adolescent Specialist: Dean Maddox MD AST [Catalytic activity/Vol] 9 U/L Low 10-35 [facility] Comment on above: Order Comment: COLLE CTION KIT GIVEN TO PATIENT. PATIENT ADVISED TO RETURN. Performed By: #### 9 1431, 27786, 866, 899, 496, 6399, 63103 #### [facility] [place] [address] Adolescent Specialist: Dean Maddox MD Bilirubin [Mass/Vol] 0.5 mg/dL Normal 0.2-1.2 [facility] Comment on above: Order Comment: COLLE CTION KIT GIVEN TO PATIENT. PATIENT ADVISED TO RETURN. Performed By: #### 9 1431, 01097, 866, 899, 496, 6399, 54454 #### [facility] [address], [address] [place] [address] Adolescent Specialist: Dean Maddox MD Calcium [Mass/Vol] 9.8 mg/dL Normal 8.6-10.2 [facility] Comment on above: Order Comment: COLLE CTION KIT GIVEN TO PATIENT. PATIENT ADVISED TO RETURN. Performed By: #### 9 1431, 14111, 866, 899, 496, 6399, 12730 #### [facility] [address], [address] [place] [address] Adolescent Specialist: Dean Maddox MD Chloride [Moles/Vol] 106 mmol/L Normal 98-110 [facility] Comment on above: Order Comment: COLLE CTION KIT GIVEN TO PATIENT. PATIENT ADVISED TO RETURN. Performed By: #### 9 1431, 96123, 866, 899, 496, 6399, 07821 #### [facility] [address], [address] [place] [address] Adolescent Specialist: Dean Maddox MD CO2 [Moles/Vol] 23 mmol/L Normal 20-32 [facility] Comment on above: Order Comment: COLLE CTION KIT GIVEN TO PATIENT. PATIENT ADVISED TO RETURN. Performed By: #### 9 1431, 88527, 866, 899, 496, 6399, 17707 #### [facility] [address], [address] [place] [address] Adolescent Specialist: Dean Madodx MD Creatinine [Mass/Vol] 1.28 mg/dL High 0.50-0.[address] [facility] Comment on above: Order Comment: COLLE CTION KIT GIVEN TO PATIENT. PATIENT ADVISED TO RETURN. Performed By: #### 9 1431, 10706, 866, 899, 496, 6399, 75279 #### [facility] [address], [address] [place] [address] Adolescent Specialist: Dean Maddox MD GFR/1.73 sq M.predicted among non-blacks MDRD (S/P/Bld) [Vol rate/Area] 52 mL/min/{1.73_m2} Low > OR = 60 [facility] Comment on above: Order Comment: COLLE CTION KIT GIVEN TO PATIENT. PATIENT ADVISED TO RETURN. Performed By: #### 9 1431, 92131, 866, 899, 496, 6399, 14532 #### [facility] [address], [address] [place] [address] Adolescent Specialist: Dean Maddox MD Globulin (S) [Mass/Vol] 3.1 g/dL Normal 1.9-3.7 [facility] Comment on above: Order Comment: COLLE CTION KIT GIVEN TO PATIENT. PATIENT ADVISED TO RETURN. Performed By: #### 9 1431, 97991, 866, 899, 496, 6399, 52588 #### [facility] [address], [address] [place] [address] Adolescent Specialist: Dean Maddox MD Glucose [Mass/Vol] 239 mg/dL High 65-99 [facility] Comment on above: Order Comment: COLLE CTION KIT GIVEN TO PATIENT. PATIENT ADVISED TO RETURN. Result Comment: Fasting reference interval For someone without known diabetes, a glucose value >125 mg/dL indicates that they may have diabetes and this should be confirmed with a follow-up test. Performed By: #### 9 1431, 84215, 866, 899, 496, 6399, 74226 #### [facility] [address], [address] [place] [address] Adolescent Specialist: Dean Maddox MD Potassium [Moles/Vol] 4.3 mmol/L Normal 3.5-5.3 [facility] Comment on above: Order Comment: COLLE CTION KIT GIVEN TO PATIENT. PATIENT ADVISED TO RETURN. Performed By: #### 9 1431, 00673, 866, 899, 496, 6399, 60593 #### [facility] [address], [address] [place] [address] Adolescent Specialist: Dean Maddox MD Protein [Mass/Vol] 7.2 g/dL Normal 6.1-8.1 [facility] Comment on above: Order Comment: COLLE CTION KIT GIVEN TO PATIENT. PATIENT ADVISED TO RETURN. Performed By: #### 9 1431, 86308, 866, 899, 496, 6399, 55545 #### [facility] [address], [address] [place] [address] Adolescent Specialist: Dean Maddox MD Sodium [Moles/Vol] 138 mmol/L Normal 135-146 [facility] Comment on above: Order Comment: COLLE CTION KIT GIVEN TO PATIENT. PATIENT ADVISED TO RETURN. Performed By: #### 9 1431, 20457, 866, 899, 496, 6399, 87249 #### [facility] [address], [address] [place] [address] Adolescent Specialist: Dean Maddox MD Urea nitrogen [Mass/Vol] 34 mg/dL High 7-25 [facility] Comment on above: Order Comment: COLLE CTION KIT GIVEN TO PATIENT. PATIENT ADVISED TO RETURN. Performed By: #### 9 1431, 25646, 866, 899, 496, 6399, 60153 #### [facility] [address], [address] [place] [address] Adolescent Specialist: Dean Maddox MD Urea nitrogen/Creatinine [Mass ratio] 27 mg/mg High 6-22 [facility] Comment on above: Order Comment: COLLE CTION KIT GIVEN TO PATIENT. PATIENT ADVISED TO RETURN. Performed By: #### 9 1431, 75927, 866, 899, 496, 6399, 65958 #### [facility] [address], [address] [place] [address] Adolescent Specialist: Dean Maddox MD CREATININE, SERUMon 03-26-20 24 Creatinine [Mass/Vol] 1.67 mg/dL High 0.40-1.10 [facility] Comment on above: Order Comment: For m onitoring while on vancomycin therapy[facility] has implemented the eGFR calculation approach that does not have a coefficient for race that conforms to the NKF-ASN Task Force Recommendations. Performed By: #### 4 5336 ####[facility] [address] [place], [place] [address] Abbi Choudhary M.D. [id number] EGFR 38 mL/min/1.73 m2 Low >=60 [facility] Comment on above: Order Comment: For m onitoring while on vancomycin therapy[facility] has implemented the eGFR calculation approach that does not have a coefficient for race that conforms to the NKF-ASN Task Force Recommendations. Result Comment: Lorie mated GFR was calculated using the 2020 CKD-EPI creatinine equation. Performed By: #### 4 5336 ####[facility] [address] [place], [place] [address] Abbi Choudhary M.D. [id number] Creatinine [Mass/Vol]on GFR/1.73 sq M.predicted CKD-EPI (S/P/Bld) [Vol rate/Area] 38 [facility] Interpretation and review of laboratory results Abnormal [facility] Creatinine, Serumon 03-26-20 Creatinine [Mass/Vol] 1.67 mg/dL High 0.40 - 1.10 mg/dL [facility] Glucose (Bld) [Mass/Vol]on 05-26-2023 Glucose [Mass/Vol] 328 mg/dL High 65 - 99 mg/dL [facility] Interpretation and review of laboratory results Abnormal [facility] Glucose [Mass/Vol] 312 mg/dL High 65 - 99 mg/dL [facility] Interpretation and review of laboratory results Abnormal [facility] Glucose [Mass/Vol] 214 mg/dL High 65 - 99 mg/dL [facility] Interpretation and review of laboratory results Abnormal [facility] Glucose [Mass/Vol] 101 mg/dL High 65 - 99 mg/dL [facility] Interpretation and review of laboratory results Abnormal [facility] Glucose [Mass/Vol] 72 mg/dL 65 - 99 mg/dL [facility] Interpretation and review of laboratory results Normal [facility] LEVETIRACETAMon 03-26-2024 levETIRAcetam [Mass/Vol] ug/mL Low [facility] Comment on above: Result Comment: Refe rence Range: 12.0-46.0 Toxic level is not well established. Interpretation should include a clinical evaluation. For additional information, please refer to http://education.[employer]/faq/AGX107 (This link is being provided for informational/educational purposes only.) This test was developed and its analytical performance characteristics have been determined by [employer]. It has not been cleared or approved by the FDA. This assay has been validated pursuant to the CLIA regulations and is used for clinical purposes. Performed By: #### 9 1431, 59268, 866, 899, 496, 6399, 02262 #### [facility] [address] [facility], [address] [place] [address] Adolescent Specialist: Dean Zimmer 03-26-2024 Extra Tube Hold for add-ons. [facility] POC GLUCOSE - [facility] 024 Glucose [Mass/Vol] 328 mg/dL High [address] [place] [address] Comment on above: Performed By: #### 4 6932 ####[facility] [address] [place], [place] [address] Abbi Choudhary M.D. [id number] Glucose [Mass/Vol] 312 mg/dL High [address] [place] [address] Comment on above: Performed By: #### 4 6932 ####[facility] [address] [place], [place] [address] Abbi Choudhary M.D. [id number] Glucose [Mass/Vol] 214 mg/dL [address] Comment on above: Performed By: #### 4 6932 ####[facility] [address] [place], [place] [address] Abbi Choudhary M.D. [id number] Glucose [Mass/Vol] 101 mg/dL High [address] [place] [address] Comment on above: Performed By: #### 4 6932 ####[facility] [address] [place], [place] [address] Abbi Choudhary M.D. [id number] Glucose [Mass/Vol] 72 mg/dL Normal [address] [place] [address] Comment on above: Performed By: #### 4 6932 ####[facility] [address] [place], [place] [address] Abbi Choudhary M.D. [id number] BASIC METABOLIC PANELon 11-0 Anion gap [Moles/Vol] 15 mmol/L Normal 10-20 [facility] Comment on above: Order Comment: [facility] has implemented the eGFR calculation approach that does not have a coefficient for race that conforms to the NKF-ASN Task Force Recommendations. Performed By: #### 4 6124 ####[facility] [address] [place], [place] [address] Abbi Choudhary M.D. [id number] Calcium [Mass/Vol] 8.3 mg/dL Low 8.4-10.2 [facility] Comment on above: Order Comment: [facility] has implemented the eGFR calculation approach that does not have a coefficient for race that conforms to the NKF-ASN Task Force Recommendations. Performed By: #### 4 6124 ####[facility] [address] [place], [place] [address] Abbi Choudhary M.D. [id number] Chloride [Moles/Vol] 105 mmol/L Normal 98-108 [facility] Comment on above: Order Comment: [facility] has implemented the eGFR calculation approach that does not have a coefficient for race that conforms to the NKF-ASN Task Force Recommendations. Performed By: #### 4 6124 ####[facility] [address] [place], [place] [address] Abbi Choudhary M.D. [id number] Creatinine [Mass/Vol] 1.35 mg/dL High 0.40-1.10 [facility] Comment on above: Order Comment: [facility] has implemented the eGFR calculation approach that does not have a coefficient for race that conforms to the NKF-ASN Task Force Recommendations. Performed By: #### 4 6124 ####[facility] [address] [place], [place] [address] Abbi Choudhary M.D. [id number] EGFR 49 mL/min/1.73 m2 Low >=60 [facility] Comment on above: Order Comment: [facility] has implemented the eGFR calculation approach that does not have a coefficient for race that conforms to the NKF-ASN Task Force Recommendations. Result Comment: Lorie mated GFR was calculated using the 2020 CKD-EPI creatinine equation. Performed By: #### 4 6124 ####[facility] [address] [place], [place] [address] Abbi Choudhary M.D. [id number] Glucose [Mass/Vol] 345 mg/dL High 65-99 [facility] Comment on above: Order Comment: [facility] has implemented the eGFR calculation approach that does not have a coefficient for race that conforms to the NKF-ASN Task Force Recommendations. Performed By: #### 4 6124 ####[facility] [address] [place], [place] [address] Abbi Choudhary M.D. [id number] HCO3 (Bld) [Moles/Vol] 22 mmol/L Normal 21-32 [facility] Comment on above: Order Comment: [facility] has implemented the eGFR calculation approach that does not have a coefficient for race that conforms to the NKF-ASN Task Force Recommendations. Performed By: #### 4 6124 ####[facility] [address] [place], [place] [address] Abbi Choudhary M.D. [id number] Potassium [Moles/Vol] 4.3 mmol/L Normal 3.5-5.1 [facility] Comment on above: Order Comment: [facility] has implemented the eGFR calculation approach that does not have a coefficient for race that conforms to the NKF-ASN Task Force Recommendations. Performed By: #### 4 6124 ####[facility] [address] [place], [place] [address] Abbi Choudhary M.D. [id number] Sodium [Moles/Vol] 138 mmol/L Normal 135-145 [facility] Comment on above: Order Comment: [facility] has implemented the eGFR calculation approach that does not have a coefficient for race that conforms to the NKF-ASN Task Force Recommendations. Performed By: #### 4 6124 ####[facility] [address] [place], [place] [address] Abbi Choudhary M.D. [id number] Urea nitrogen [Mass/Vol] 23 mg/dL Normal 8-25 [facility] Comment on above: Order Comment: [facility] has implemented the eGFR calculation approach that does not have a coefficient for race that conforms to the NKF-ASN Task Force Recommendations. Performed By: #### 4 6124 ####[facility] [address] [place], [place] [address] Abbi Choudhary M.D. [id number] Urea nitrogen/Creatinine [Mass ratio] 17.0 mg/mg Normal 10.0-20.0 [facility] Comment on above: Order Comment: [facility] has implemented the eGFR calculation approach that does not have a coefficient for race that conforms to the NKF-ASN Task Force Recommendations. Performed By: #### 4 6124 ####[facility] [address] [place], [place] [address] Abbi Choudhary M.D. [id number] BLOOD CULTURE AEROBIC/ANAERO [facility] 03-25-2024 BLOOD CULTURE AEROBIC/ANAEROBIC BLOOD CULTURE No Growth after 5 days Normal [facility] Comment on above: Performed By: #### 4 4014 ####[facility] [address] [place] [address] Swapnil Brewer M.D. [id number] Basic metabolic 2000 panelon 03-25-2024 Anion gap [Moles/Vol] 15 mmol/L 10 - 2 0 mmol/L [facility] Calcium [Mass/Vol] 8.3 mg/dL Low 8.4 - 10. 2 mg/dL [facility] Chloride [Moles/Vol] 105 mmol/L 98 - 10 8 mmol/L [facility] [facility] Creatinine [Mass/Vol] 1.35 mg/dL High 0.40 - 1.10 mg/dL [facility] GFR/1.73 sq M.predicted CKD-EPI (S/P/Bld) [Vol rate/Area] 49 Low - PINF [facility] Glucose [Mass/Vol] 345 mg/dL High 65 - 99 mg/dL [facility] HCO3 [Moles/Vol] 22 mmol/L 21 - 32 mmol/L [facility] Interpretation and review of laboratory results Abnormal [facility] Potassium [Moles/Vol] 4.3 mmol/L 3.5 - 5.1 mmol/L [facility] Sodium [Moles/Vol] 138 mmol/L 135 - 145 mmol/L [facility] Urea nitrogen [Mass/Vol] 23 mg/dL 8 - 25 mg/dL [facility] Urea nitrogen/Creatinine [Mass ratio] 17 mg/mg 10.0 - 20.0 [facility] CBCon 03-25-2024 AUTO NRBC 0.0 % Normal [facility] Comment on above: Performed By: #### [id number] ####[facility] [address] [place], [place] [address] Abbi Choudhary M.D. [id number] AUTO NRBC ABS COUNT 0.00 K/mcL Normal 0.00-0.00 [facility] Comment on above: Performed By: #### 4 [id number] ####[facility] [address] [place] [address] Abbi Choudhary M.D. [id number] Erythrocyte distribution width (RBC) [Ratio] 13.0 % Normal 11.6-14.8 [facility] Comment on above: Performed By: #### 4 [id number] ####[facility] [address] [place], [place] [address] Abbi Choudhary M.D. [id number] Hematocrit (Bld) [Volume fraction] 29.7 % Low 36.0-46.0 [facility] Comment on above: Performed By: #### 4 [id number] ####[facility] [address] [place], [place] [address] Abbi Choudhary M.D. [id number] Hemoglobin (Bld) [Mass/Vol] 10.2 g/dL Low 12.0-16.0 [facility] Comment on above: Performed By: #### 4 [id number] ####[facility] [address] [place], [place] [address] Abbi Choudhary M.D. [id number] MCH (RBC) [Entitic mass] 30.7 pg Normal 26.0-34.0 [facility] Comment on above: Performed By: #### 4 [id number] ####[facility] [address] [place], [place] [address] Abbi Choudhary M.D. [id number] MCV (RBC) [Entitic vol] 89.5 fL Normal 80.0-100.0 [facility] Comment on above: Performed By: #### 4 [id number] ####[facility] [address] [place], [place] [address] Abbi Choudhary M.D. [id number] MEAN CORPUSCULAR HEMOGLOBIN CONC 34.3 g/dL Normal 31.0-37.0 [facility] Comment on above: Performed By: #### 4 [id number] ####[facility] [address] [place], [place] [address] Abbi Choudhary M.D. [id number] Platelet mean volume (Bld) [Entitic vol] 9.0 fL Low 9.4-12.4 [facility] Comment on above: Performed By: #### 4 [id number] ####[facility] [address] [place], [place] [address] Abbi Choudhary M.D. [id number] Platelets (Bld) [#/Vol] 297 10*3/uL Normal 150-400 [facility] Comment on above: Performed By: #### 4 [id number] ####[facility] [address] [place], [place] [address] Abbi Choudhary M.D. [id number] RBC (Bld) [#/Vol] 3.32 10*6/uL Low 4.00-5.20 [facility] Comment on above: Performed By: #### 4 [id number] ####[facility] [address] [place], [place] [address] Abbi Choudhary M.D. [id number] WBC (Bld) [#/Vol] 8.66 10*3/uL Normal 4.50-11.00 [facility] Comment on above: Performed By: #### 4 [id number] ####[facility] [address] [place], [place] [address] Abbi Choudhary M.D. [id number] CBC panel Auto (Bld)on 03-25 Erythrocyte distribution width (RBC) [Entitic vol] 13 % 11.6 - 14.8 % [facility] Hematocrit (Bld) [Volume fraction] 29.7 % Low 36.0 - 46.0 % [facility] Hemoglobin (Bld) [Mass/Vol] 10.2 g/dL Low 12.0 - 16.0 g/dL [facility] Interpretation and review of laboratory results Abnormal [facility] MCH (RBC) [Entitic mass] 30.7 pg 26.0 - 34.0 pg [facility] MCHC (RBC) [Mass/Vol] 34.3 g/dL 31.0 - 37.0 g/dL [facility] MCV (RBC) [Entitic vol] 89.5 fL 80.0 - 100.0 fL [facility] Nucleated RBC (Bld) [#/Vol] 0 10*3/uL [facility] Nucleated RBC/100 WBC (Bld) [Ratio] 0 % [facility] Platelet mean volume (Bld) [Entitic vol] 9 fL Low 9.4 - 12.4 fL [facility] Platelets (Bld) [#/Vol] 297 10*3/uL [facility] RBC (Bld) [#/Vol] 3.32 10*6/uL Low [facility] WBC (Bld) [#/Vol] 8.66 10*3/uL [facility] ealth [facility] CONSULTon 03-25-2024 CONSULT Normal [facility] ECG 12- Leadon 03-25-2024 Atrial Rate 109 BPM [facility] P [place] 51 degrees [facility] P-R Interval 176 ms [facility] Q-T Interval 328 ms [facility] QRS Duration 82 ms [facility] QTC Calculation (Bezet) 441 ms [facility] R [place] 14 degrees [facility] T [place] 37 degrees [facility] Ventricular Rate [address] [facility] MUSE [facility] EKGon 03-25-2024 [facility] Glucose (Bld) [Mass/Vol]on 05-25-2023 Glucose [Mass/Vol] 117 mg/dL High 65 - 99 mg/dL [facility] Interpretation and review of laboratory results Abnormal [facility] Glucose [Mass/Vol] 142 mg/dL High 65 - 99 mg/dL [facility] Interpretation and review of laboratory results Abnormal [facility] Glucose [Mass/Vol] 148 mg/dL High 65 - 99 mg/dL [facility] Interpretation and review of laboratory results Abnormal [facility] Glucose [Mass/Vol] 286 mg/dL High 65 - 99 mg/dL [facility] Interpretation and review of laboratory results Abnormal [facility] Glucose [Mass/Vol] 343 mg/dL High 65 - 99 mg/dL [facility] Interpretation and review of laboratory results Abnormal [facility] Glucose [Mass/Vol] 469 mg/dL Critically high 65 - 9 9 mg/dL [facility] Interpretation and review of laboratory results Abnormal [facility] Glucose [Mass/Vol] mg/dL Critically high 65 - 9 9 mg/dL [facility] Interpretation and review of laboratory results Abnormal [facility] Gold Topon 03-25-2024 Extra Tube Hold for add-ons. [facility] H AND Paulino 03-25-2024 H AND P Normal [facility] LACTIC ACID, PLASMAon 2023 LACTIC ACID, PLASMA 2.1 mmol/L High 0.6-2.0 [facility] Comment on above: Performed By: #### 4 [id number] ####[facility] [address] [place], [place] [address] Abbi Choudhary M.D. [id number] Lactate [Moles/Vol]on 2023 Interpretation and review of laboratory results Abnormal [facility] Lactic Acid, Plasmaon 2023 Lactate [Moles/Vol] 2.1 mmol/L High 0.6 - 2. 0 mmol/L [facility] POC [facility] Glucose [Mass/Vol] 117 mg/dL [address] Comment on above: Performed By: #### 4 [id number] ####[facility] [address] [place], [place] [address] Abbi Choudhary M.D. [id number] Glucose [Mass/Vol] 142 mg/dL [address] Comment on above: Performed By: #### 4 [id number] ####[facility] [address] [place], [place] [address] Abbi Choudhary M.D. [id number] Glucose [Mass/Vol] 148 mg/dL [address] Comment on above: Performed By: #### 4 [id number] ####[facility] [address] [place], [place] [address] Abbi Choudhary M.D. [id number] Glucose [Mass/Vol] 286 mg/dL [address] Comment on above: Performed By: #### 4 [id number] ####[facility] [address] [place], [place] [address] Abbi Choudhary M.D. [id number] Glucose [Mass/Vol] 343 mg/dL [address] Comment on above: Performed By: #### 4 [id number] ####[facility] [address] [place], [place] [address] Abbi Choudhary M.D. [id number] Glucose [Mass/Vol] 469 mg/dL Off scale [address] Comment on above: Order Comment: Criti marquita result acted upon time of test. Test performed at bedside. Performed By: #### 4 [id number] ####[facility] [address] [place], [place] [address] Abbi Choudhary M.D. [id number] POC GLUCOSE > Off scale [address] Comment on above: Order Comment: Criti marquita result acted upon time of test. Test performed at bedside. Performed By: #### 4 [id number] ####[facility] [address] [place], [place] [address] Abbi Choudhary M.D. [id number] REFLEX LACTIC ACID, PLASMAon 03-25-2024 LACTIC ACID, PLASMA 1.2 mmol/L Normal 0.6-2.0 [facility] Comment on above: Performed By: #### L [id number] ####[facility] [address] [place], [place] [address] Abbi Choudhary M.D. [id number] LACTIC ACID, PLASMA 2.2 mmol/L High 0.6-2.0 [facility] Comment on above: Performed By: #### L [id number] ####[facility] [address] [place], [place] [address] Abbi Choudhary M.D. [id number] Reflex Lactic Acid, Plasmaon 03-25-2024 Interpretation and review of laboratory results Normal [facility] Lactate [Moles/Vol] 1.2 mmol/L 0.6 - 2. 0 mmol/L [facility] Interpretation and review of laboratory results Abnormal [facility] Lactate [Moles/Vol] 2.2 mmol/L High 0.6 - 2. 0 mmol/L [facility] URINALYSISon 03-25-2024 BACTERIA, URINE Rare Abnormal None Seen [facility] Comment on above: Order Comment: Micro scopic examination is performed on all urinalysis samples and only positive findings are reported. The test for blood on the chemical analytic portion of urinalysis may also be positive due to hemoglobinuria and myoglobinuria and if red blood cells are present they are quantified by microscopic examination. Performed By: #### 4 [id number] ####[facility] [address] [place] [address] Abbi Choudhary M.D. [id number] BILIRUBIN, URINE Negative Normal Negative [facility] Comment on above: Order Comment: Micro scopic examination is performed on all urinalysis samples and only positive findings are reported. The test for blood on the chemical analytic portion of urinalysis may also be positive due to hemoglobinuria and myoglobinuria and if red blood cells are present they are quantified by microscopic examination. Performed By: #### 4 [id number] ####[facility] [address] [place] [address] Abbi Choudhary M.D. [id number] BLOOD, URINE Moderate Abnormal Negative [facility] Comment on above: Order Comment: Micro scopic examination is performed on all urinalysis samples and only positive findings are reported. The test for blood on the chemical analytic portion of urinalysis may also be positive due to hemoglobinuria and myoglobinuria and if red blood cells are present they are quantified by microscopic examination. Performed By: #### 4 [id number] ####[facility] [address] [place], [place] [address] Abbi Choudhary M.D. [id number] Clarity (U) Clear Normal Clear [facility] Comment on above: Order Comment: Micro scopic examination is performed on all urinalysis samples and only positive findings are reported. The test for blood on the chemical analytic portion of urinalysis may also be positive due to hemoglobinuria and myoglobinuria and if red blood cells are present they are quantified by microscopic examination. Performed By: #### 4 [id number] ####[facility] [address] [place] [address] Abbi Choudhary M.D. [id number] Color (U) Yellow Normal Colorless, Yellow [facility] Comment on above: Order Comment: Micro scopic examination is performed on all urinalysis samples and only positive findings are reported. The test for blood on the chemical analytic portion of urinalysis may also be positive due to hemoglobinuria and myoglobinuria and if red blood cells are present they are quantified by microscopic examination. Performed By: #### 4 [id number] ####[facility] [address] [place], [place] [address] Abbi Choudhary M.D. [id number] Glucose Ql (U) >=500 Abnormal Negative [facility] Comment on above: Order Comment: Micro scopic examination is performed on all urinalysis samples and only positive findings are reported. The test for blood on the chemical analytic portion of urinalysis may also be positive due to hemoglobinuria and myoglobinuria and if red blood cells are present they are quantified by microscopic examination. Performed By: #### 4 [id number] ####[facility] [address] [place], [place] [address] Abbi Choudhary M.D. [id number] Ketones Ql (U) Negative Normal Negative [facility] Comment on above: Order Comment: Micro scopic examination is performed on all urinalysis samples and only positive findings are reported. The test for blood on the chemical analytic portion of urinalysis may also be positive due to hemoglobinuria and myoglobinuria and if red blood cells are present they are quantified by microscopic examination. Performed By: #### 4 [id number] ####[facility] [address] [place], [place] [address] Abbi Choudhary M.D. [id number] Leukocyte esterase Test strip Ql (U) Negative Normal Negative [facility] Comment on above: Order Comment: Micro scopic examination is performed on all urinalysis samples and only positive findings are reported. The test for blood on the chemical analytic portion of urinalysis may also be positive due to hemoglobinuria and myoglobinuria and if red blood cells are present they are quantified by microscopic examination. Performed By: #### 4 [id number] ####[facility] [address] [place], [place] [address] Abbi Choudhary M.D. [id number] MUCUS, URINE Rare Normal None Seen, Rare [facility] Comment on above: Order Comment: Micro scopic examination is performed on all urinalysis samples and only positive findings are reported. The test for blood on the chemical analytic portion of urinalysis may also be positive due to hemoglobinuria and myoglobinuria and if red blood cells are present they are quantified by microscopic examination. Performed By: #### 4 [id number] ####[facility] [address] [place], [place] [address] Abbi Choudhary M.D. [id number] NITRITE, URINE Negative Normal Negative [facility] Comment on above: Order Comment: Micro scopic examination is performed on all urinalysis samples and only positive findings are reported. The test for blood on the chemical analytic portion of urinalysis may also be positive due to hemoglobinuria and myoglobinuria and if red blood cells are present they are quantified by microscopic examination. Performed By: #### 4 [id number] ####[facility] [address] [place], [place] [address] Abbi Choudhary M.D. [id number] pH (U) 5.0 [pH] Normal 5.0-7.0 [facility] Comment on above: Order Comment: Micro scopic examination is performed on all urinalysis samples and only positive findings are reported. The test for blood on the chemical analytic portion of urinalysis may also be positive due to hemoglobinuria and myoglobinuria and if red blood cells are present they are quantified by microscopic examination. Performed By: #### 4 6625 ####[facility] [address] [place], [place] [address] Abbi Choudhary M.D. [id number] Protein (U) [Mass/Vol] 100 mg/dL Abnormal Negative [facility] Comment on above: Order Comment: Micro scopic examination is performed on all urinalysis samples and only positive findings are reported. The test for blood on the chemical analytic portion of urinalysis may also be positive due to hemoglobinuria and myoglobinuria and if red blood cells are present they are quantified by microscopic examination. Performed By: #### 4 [id number] ####[facility] [address] [place], [place] [address] Abbi Choudhary M.D. [id number] RBC LM.HPF (Urine sed) [#/Area] 2 /[HPF] Normal 0-3 [facility] Comment on above: Order Comment: Micro scopic examination is performed on all urinalysis samples and only positive findings are reported. The test for blood on the chemical analytic portion of urinalysis may also be positive due to hemoglobinuria and myoglobinuria and if red blood cells are present they are quantified by microscopic examination. Performed By: #### 4 [id number] ####[facility] [address] [place] [address] Abbi Choudhary M.D. [id number] Specific gravity (U) [Rel density] 1.021 Normal 1.005-1.025 [facility] Comment on above: Order Comment: Micro scopic examination is performed on all urinalysis samples and only positive findings are reported. The test for blood on the chemical analytic portion of urinalysis may also be positive due to hemoglobinuria and myoglobinuria and if red blood cells are present they are quantified by microscopic examination. Performed By: #### 4 [id number] ####[facility] [address] [place] [address] Abbi Choudhray M.D. [id number] SQUAMOUS EPITHELIAL 2 /hpf Normal 0-4 [facility] Comment on above: Order Comment: Micro scopic examination is performed on all urinalysis samples and only positive findings are reported. The test for blood on the chemical analytic portion of urinalysis may also be positive due to hemoglobinuria and myoglobinuria and if red blood cells are present they are quantified by microscopic examination. Performed By: #### 4 6625 ####[facility] [address] [place] [address] Abbi Choudhary M.D. [id number] UROBILINOGEN, URINE <2.0 Normal <2.0 [facility] Comment on above: Order Comment: Micro scopic examination is performed on all urinalysis samples and only positive findings are reported. The test for blood on the chemical analytic portion of urinalysis may also be positive due to hemoglobinuria and myoglobinuria and if red blood cells are present they are quantified by microscopic examination. Performed By: #### 4 [id number] ####[facility] [address] [place] [address] Abbi Choudhary M.D. [id number] WBC LM.HPF (Urine sed) [#/Area] 5 /[HPF] Normal 0-5 [facility] Comment on above: Order Comment: Micro scopic examination is performed on all urinalysis samples and only positive findings are reported. The test for blood on the chemical analytic portion of urinalysis may also be positive due to hemoglobinuria and myoglobinuria and if red blood cells are present they are quantified by microscopic examination. Performed By: #### 4 [id number] ####[facility] [address] [place], [place] [address] Abbi Choudhary M.D. [id number] URINE AEROBIC CULTUREon URINE AEROBIC CULTURE Abnormal [facility] Comment on above: Performed By: #### 4 4053 ####[facility] [address] [place], [place] [address] Swapnil Brewer M.D. [id number] UrinalysisOrdered By: Navneet Parr on 03-25-2024 Bacteria Auto Ql (U) Rare Abnormal None Se en /hpf [facility] Bilirubin Ql (U) Negative [facility] Clarity Refractometry automated (U) Clear Clear [facility] Color (U) Yellow Colorless, Yellow [facility] Epithelial cells.squamous Auto (Urine sed) [#/Area] 2 [facility] Glucose Auto test strip (U) [Mass/Vol] >=500 Abnormal Negative mg/dL [facility] Hemoglobin Auto test strip Ql (U) Moderate Abnormal Negative [facility] Interpretation and review of laboratory results Abnormal [facility] Ketones (U) [Mass/Vol] Negative Negative mg/dL [facility] Leukocyte esterase Auto test strip Ql (U) Negative Negative [facility] Mucus Auto (Urine sed) [#/Area] Rare None Seen, Rare /lpf [facility] Nitrite Auto test strip Ql (U) Negative Negative [facility] pH (U) 5 [pH] 5.0 - 7.0 [facility] Protein (U) [Mass/Vol] 100 mg/dL Abnormal Negative [facility] RBC Auto (Urine sed) [#/Area] 2 [facility] Specific gravity (U) [Rel density] 1.021 1.005 - 1.025 [facility] Urobilinogen (U) [Mass/Vol] mg/dL NINF - 2.0 mg/dL [facility] WBC Auto (Urine sed) [#/Area] 5 [facility] WOUND AEROBIC AND ANAEROBIC CULTUREon 03-25-2024 WOUND AEROBIC AND ANAEROBIC CULTURE CULTURE No Growth after 5 days GRAM STAIN RESULT Few WBC Many RBC No Organisms Seen Normal [facility] Comment on above: Performed By: #### 4 [id number] ####[facility] [address] [place] [address] Swapnil Brewer M.D. [id number] WOUND AEROBIC AND ANAEROBIC CULTURE Abnormal [facility] Comment on above: Performed By: #### 4 4287 ####[facility] [place], [place] [address] Swapnil Brewer M.D. [id number] BASIC METABOLIC PANELon 10-3 Anion gap [Moles/Vol] 20 mmol/L Normal 10-20 [facility] Comment on above: Order Comment: [facility] has implemented the eGFR calculation approach that does not have a coefficient for race that conforms to the NKF-ASN Task Force Recommendations. Performed By: #### 4 6124 ####[facility] [address] [place], [place] [address] Abbi Choudhary M.D. [id number] Calcium [Mass/Vol] 9.3 mg/dL Normal 8.4-10.2 [facility] Comment on above: Order Comment: [facility] has implemented the eGFR calculation approach that does not have a coefficient for race that conforms to the NKF-ASN Task Force Recommendations. Performed By: #### 4 6124 #### [facility] [address] [place], [place] [address] Abbi Choudhary M.D. [id number] Chloride [Moles/Vol] 97 mmol/L Low 98-108 [facility] Comment on above: Order Comment: [facility] has implemented the eGFR calculation approach that does not have a coefficient for race that conforms to the NKF-ASN Task Force Recommendations. Performed By: #### 4 6124 #### [facility] [address] [place], [place] [address] Abbi Choudhary M.D. [id number] Creatinine [Mass/Vol] 1.44 mg/dL High 0.40-1.10 [facility] Comment on above: Order Comment: [facility] has implemented the eGFR calculation approach that does not have a coefficient for race that conforms to the NKF-ASN Task Force Recommendations. Performed By: #### 4 [id number] ####[facility] [address] [place], [place] [address] Abbi Choudhary M.D. [id number] EGFR 46 mL/min/1.73 m2 Low >=60 [facility] Comment on above: Order Comment: [facility] has implemented the eGFR calculation approach that does not have a coefficient for race that conforms to the NKF-ASN Task Force Recommendations. Result Comment: Lorie mated GFR was calculated using the 2020 CKD-EPI creatinine equation. Performed By: #### 4 [id number] ####[facility] [address] [place], [place] [address]Alisia Choudhary M.D. [id number] Glucose [Mass/Vol] 646 mg/dL Off scale high 65-99 [facility] Comment on above: Order Comment: [facility] has implemented the eGFR calculation approach that does not have a coefficient for race that conforms to the NKF-ASN Task Force Recommendations. Performed By: #### 4 [id number] ####[facility] [address] [place], [place] [address] Abbi Choudhary M.D. [id number] HCO3 (Bld) [Moles/Vol] 22 mmol/L Normal 21-32 [facility] Comment on above: Order Comment: [facility] has implemented the eGFR calculation approach that does not have a coefficient for race that conforms to the NKF-ASN Task Force Recommendations. Performed By: #### 4 [id number] ####[facility] [address] [place], [place] [address] Abbi Choudhary M.D. [id number] Potassium [Moles/Vol] 4.6 mmol/L Normal 3.5-5.1 [facility] Comment on above: Order Comment: [facility] has implemented the eGFR calculation approach that does not have a coefficient for race that conforms to the NKF-ASN Task Force Recommendations. Performed By: #### 4 [id number] ####[facility] [address] [place], [place] [address] Abbi Choudhary M.D. [id number] Sodium [Moles/Vol] 134 mmol/L Low 135-145 [facility] Comment on above: Order Comment: [facility] has implemented the eGFR calculation approach that does not have a coefficient for race that conforms to the NKF-ASN Task Force Recommendations. Performed By: #### 4 [id number] ####[facility] [address] [place], [place] [address] Abbi Choudhary M.D. [id number] Urea nitrogen [Mass/Vol] 24 mg/dL Normal 8- [facility] Comment on above: Order Comment: [facility] has implemented the eGFR calculation approach that does not have a coefficient for race that conforms to the NKF-ASN Task Force Recommendations. Performed By: #### 4 [id number] ####[facility] [address] [place], [place] [address] Abbi Choudhary M.D. [id number] Urea nitrogen/Creatinine [Mass ratio] 16.7 mg/mg Normal 10.0-20.0 [facility] Comment on above: Order Comment: [facility] has implemented the eGFR calculation approach that does not have a coefficient for race that conforms to the NKF-ASN Task Force Recommendations. Performed By: #### 4 [id number] ####[facility] [address] [place], [place] [address] Abbi Choudhary M.D. [id number] BLOOD GAS, VENOUSon 03-24-20 24 BASE EXCESS, VENOUS -3.8 Low -2.0-2.0 [facility] Comment on above: Performed By: #### 4 [id number] ####[facility] [address] [place], [place] [address] Abbi Choudhary M.D. [id number] HCO3 (Bld) [Moles/Vol] 22.3 mmol/L Low 24.0-28.0 [facility] Comment on above: Performed By: #### 4 [id number] ####[facility] [address] [place], [place] [address] Abbi Choudhary M.D. [id number] Hematocrit (Bld) [Volume fraction] 40.0 % Normal 36.0-46.0 [facility] Comment on above: Performed By: #### 4 [id number] ####[facility] [address] [place], [place] [address] Abbi Choudhary M.D. [id number] Hemoglobin (Bld) [Mass/Vol] 13.0 g/dL Normal 12.0-16.0 [facility] Comment on above: Performed By: #### 4 [id number] ####[facility] [address] [place] [address] Abbi Choudhary M.D. [id number] Oxygen saturation in Blood 69.9 % Normal 40.0-70.0 [facility] Comment on above: Performed By: #### 4 [id number] ####[facility] [address] [place] [address] Abbi Choudhary M.D. [id number] PCO2 VENOUS 47.4 mm Hg Normal 41.0-51.0 [facility] Comment on above: Performed By: #### 4 [id number] ####[facility] [address] [place] [address] Abbi Choudhary M.D. [id number] PH VENOUS 7.30 Low 7.32-7.42 [facility] Comment on above: Performed By: #### 4 [id number] ####[facility] [address] [place] [address] Abbi Choudhary M.D. [id number] PO2 VENOUS 41 mm Hg High 25-40 [facility] Comment on above: Performed By: #### 4 [id number] ####[facility] [address] [place], [place] [address] Abbi Choudhary M.D. [id number] Basic metabolic 2000 panelOr dered By: Kendra Bae on 03-24-2024 Anion gap [Moles/Vol] 20 mmol/L 10 - 2 0 mmol/L [facility] [place] Calcium [Mass/Vol] 9.3 mg/dL 8.4 - 10. 2 mg/dL [facility] [place] Chloride [Moles/Vol] 97 mmol/L Low 98 - 10 8 mmol/L [facility] [place] Creatinine [Mass/Vol] 1.44 mg/dL High 0.40 - 1.10 mg/dL [facility] [place] GFR/1.73 sq M.predicted CKD-EPI (S/P/Bld) [Vol rate/Area] 46 Low - PINF [facility] Glucose [Mass/Vol] 646 mg/dL Critically high 65 - 9 9 mg/dL [facility] HCO3 [Moles/Vol] 22 mmol/L 21 - 32 mmol/L [facility] Interpretation and review of laboratory results Abnormal [facility] Potassium [Moles/Vol] 4.6 mmol/L 3.5 - 5.1 mmol/L [facility] Sodium [Moles/Vol] 134 mmol/L Low 135 - 145 mmol/L [facility] Urea nitrogen [Mass/Vol] 24 mg/dL 8 - 25 mg/dL [facility] Urea nitrogen/Creatinine [Mass ratio] 16.7 mg/mg 10.0 - 20.0 [facility] CBC Auto Differentialon 02-24 Basophils (Bld) [#/Vol] 0.06 10*3/uL [facility] [place] Basophils/100 WBC (Bld) 0.6 % [facility] Eosinophils (Bld) [#/Vol] 0.33 10*3/uL [facility] Eosinophils/100 WBC (Bld) 3.5 % [facility] Erythrocyte distribution width (RBC) [Entitic vol] 13 % 11.6 - 14.8 % [facility] Hematocrit (Bld) [Volume fraction] 37.6 % 36.0 - 46.0 % [facility] Hemoglobin (Bld) [Mass/Vol] 12.5 g/dL 12.0 - 16.0 g/dL [facility] Immature granulocytes (Bld) [#/Vol] 0.05 10*3/uL [facility] Immature granulocytes/100 WBC (Bld) 0.5 % [facility] Interpretation and review of laboratory results Abnormal [facility] Lymphocytes (Bld) [#/Vol] 1.34 10*3/uL [facility] Lymphocytes/100 WBC (Bld) 14 % [facility] MCH (RBC) [Entitic mass] 30.3 pg 26.0 - 34.0 pg [facility] MCHC (RBC) [Mass/Vol] 33.2 g/dL 31.0 - 37.0 g/dL [facility] [place] MCV (RBC) [Entitic vol] 91 fL 80.0 - 100.0 fL [facility] Monocytes (Bld) [#/Vol] 0.43 10*3/uL [facility] Monocytes/100 WBC (Bld) 4.5 % [facility] Neutrophils (Bld) [#/Vol] 7.35 10*3/uL High [facility] Neutrophils/100 WBC (Bld) 76.9 % [facility] Nucleated RBC (Bld) [#/Vol] 0 10*3/uL [facility] Nucleated RBC/100 WBC (Bld) [Ratio] 0 % [facility] Platelet mean volume (Bld) [Entitic vol] 9.4 fL 9.4 - 12.4 fL [facility] Platelets (Bld) [#/Vol] 371 10*3/uL [facility] RBC (Bld) [#/Vol] 4.13 10*6/uL [facility] WBC (Bld) [#/Vol] 9.56 10*3/uL [facility] CBC WITH AUTO DIFFERENTIALon 03-24-2024 AUTO NRBC 0.0 % [facility] Comment on above: Performed By: #### L [id number] ####[facility] [address] [place], [place] [address] Abbi Choudhary M.D. [id number] AUTO NRBC ABS COUNT 0.00 K/mcL Normal 0.00-0.00 [facility] Comment on above: Performed By: #### L [id number] ####[facility] [address] [place], [place] [address] Abbi Choudhary M.D. [id number] BASOPHILS ABSOLUTE COUNT 0.06 K/mcL Normal 0.00-0.30 [facility] Comment on above: Performed By: #### L [id number] ####[facility] [address] [place], [place] [address] Abbi Choudhary M.D. [id number] Basophils/100 WBC (Bld) 0.6 % Normal [facility] Comment on above: Performed By: #### L [id number] ####[facility] [address] [place], [place] [address] Abbi Choudhray M.D. [id number] Eosinophils (Bld) [#/Vol] 0.33 10*3/uL Normal 0.00-0.50 [facility] Comment on above: Performed By: #### L [id number] ####[facility] [address] [place] [address] Abbi Choudhary M.D. [id number] Eosinophils/100 WBC (Bld) 3.5 % Normal [facility] Comment on above: Performed By: #### L [id number] ####[facility] [address] [place] [address] Abbi Choudhary M.D. [id number] Erythrocyte distribution width (RBC) [Ratio] 13.0 % Normal 11.6-14.8 [facility] Comment on above: Performed By: #### L [id number] ####[facility] [address] [place] [address] Abbi Choudhary M.D. [id number] Hematocrit (Bld) [Volume fraction] 37.6 % Normal 36.0-46.0 [facility] Comment on above: Performed By: #### L [id number] ####[facility] [address] [place] [address] Abbi Choudhary M.D. [id number] Hemoglobin (Bld) [Mass/Vol] 12.5 g/dL Normal 12.0-16.0 [facility] Comment on above: Performed By: #### L [id number] ####[facility] [address] [place] [address] Abbi Choudhary M.D. [id number] IG ABSOLUTE 0.05 K/mcL Normal 0.00-0.30 [facility] Comment on above: Performed By: #### L [id number] ####[facility] [address] [place] [address] Abbi Choudhary M.D. [id number] IG PERCENT 0.50 % Normal [facility] Comment on above: Result Comment: The IG parameter is the percentage of metamyelocytes, myelocytes and promyelocytes. An immature granulocyte count (IG) of 1% or more suggests the possibility of infection, an IG count of 3% is very likely related to an infection. Performed By: #### L [id number] ####[facility] [address] [place], [place] [address] Abbi Choudhary M.D. [id number] Lymphocytes (Bld) [#/Vol] 1.34 10*3/uL Normal 0.90-4.00 [facility] Comment on above: Performed By: #### L [id number] ####[facility] [address] [place], [place] [address] Abbi Choudhary M.D. [id number] Lymphocytes/100 WBC (Bld) 14.0 % Normal [facility] Comment on above: Performed By: #### L [id number] ####[facility] [address] [place], [place] [address] Abbi Choudhary M.D. [id number] MCH (RBC) [Entitic mass] 30.3 pg Normal 26.0-34.0 [facility] Comment on above: Performed By: #### L [id number] ####[facility] [address] [place], [place] [address] Abbi Choudhary M.D. [id number] MCV (RBC) [Entitic vol] 91.0 fL Normal 80.0-100.0 [facility] Comment on above: Performed By: #### L [id number] ####[facility] [address] [place], [place] [address] Abbi Choudhary M.D. [id number] MEAN CORPUSCULAR HEMOGLOBIN CONC 33.2 g/dL Normal 31.0-37.0 [facility] Comment on above: Performed By: #### L [id number] ####[facility] [address] [place] [address] Abbi Choudhary M.D. [id number] Monocytes (Bld) [#/Vol] 0.43 10*3/uL Normal 0.30-0.90 [facility] Comment on above: Performed By: #### L [id number] ####[facility] [address] [place], [place] [address] Abbi Choudhary M.D. [id number] Monocytes/100 WBC (Bld) 4.5 % Normal [facility] Comment on above: Performed By: #### L [id number] ####[facility] [address] [place], [place] [address] Abbi Choudhary M.D. [id number] NEUTROPHILS ABSOLUTE COUNT 7.35 K/mcL High 1.70-7.00 [facility] Comment on above: Performed By: #### L [id number] ####[facility] [address] [place], [place] [address] Abbi Choudhary M.D. [id number] Neutrophils/100 WBC (Bld) 76.9 % Normal [facility] Comment on above: Performed By: #### L [id number] ####[facility] [address] [place], [place] [address] Abbi Choudhary M.D. [id number] Platelet mean volume (Bld) [Entitic vol] 9.4 fL Normal 9.4-12.4 [facility] Comment on above: Performed By: #### L [id number] ####[facility] [address] [place], [place] [address] Abbi Choudhary M.D. [id number] Platelets (Bld) [#/Vol] 371 10*3/uL Normal 150-400 [facility] Comment on above: Performed By: #### L [id number] ####[facility] [address] [place], [place] [address] Abbi Choudhary M.D. [id number] RBC (Bld) [#/Vol] 4.13 10*6/uL Normal 4.00-5.20 [facility] Comment on above: Performed By: #### L [id number] ####[facility] [address] [place], [place] [address] Abbi Choudhary M.D. [id number] WBC (Bld) [#/Vol] 9.56 10*3/uL Normal 4.50-11.00 [facility] Comment on above: Performed By: #### L [id number] ####[facility] [address] [place], [place] [address] Abbi Choudhary M.D. [id number] CRP [Mass/Vol]on 10-31-2024 Interpretation and review of laboratory results Abnormal [facility] CRP, INFLAMMATIONon 03-24-20 CRP [Mass/Vol] 15.1 mg/L High 0.0-10.0 [facility] Comment on above: Performed By: #### 4 5334 ####[facility] [address] [place], [place] [address] Abbi Choudhary M.D. [id number] CRP, Inflammationon 03-24-20 CRP [Mass/Vol] 15.1 mg/L High 0.0 - 10.0 mg/L [facility] [place] ED Prov Noteon 03-24-2024 ED Prov Note Normal [facility] ESR Westergren method (Bld) [Velocity]on 03-24-2024 ESR (Bld) [Velocity] 62 mm/h High [facility] Interpretation and review of laboratory results Abnormal [facility] Gas panel (BldV)on Base excess Calc (BldV) [Moles/Vol] -3.8000 mmol/L Low -2.0 - 2.0 [facility] CO2 (BldV) [Partial pressure] 47.4 mm[Hg] [facility] HCO3 (Bld) [Moles/Vol] 22.3 mmol/L Low 24.0 - 28.0 mmol/L [facility] Hematocrit (BldA) [Volume fraction] 40 % 36.0 - 46.0 % [facility] Hemoglobin (Bld) [Mass/Vol] 13 g/dL 12.0 - 16.0 g/dL [facility] Interpretation and review of laboratory results Abnormal [facility] Oxygen (BldV) [Partial pressure] 41 mm[Hg] High [facility] Oxygen saturation in Venous blood 69.9 % 40.0 - 70.0 % [facility] pH (BldV) 7.3 [pH] Low 7.32 - 7.42 [facility] HEPATIC FUNCTION PANELon Albumin [Mass/Vol] 4.2 g/dL Normal 3.2-5.2 [facility] Comment on above: Performed By: #### 4 [id number] ####[facility] [address] [place], [place] [address] Abbi Choudhary M.D. [id number] ALP [Catalytic activity/Vol] 139 U/L Normal 40-150 [facility] Comment on above: Performed By: #### 4 [id number] ####[facility] [address] [place], [place] [address] Abbi Choudhary M.D. [id number] ALT [Catalytic activity/Vol] 16 U/L Normal 0-35 U/L [facility] Comment on above: Performed By: #### 4 [id number] ####[facility] [address] [place], [place] [address] Abbi Choudhary M.D. [id number] AST [Catalytic activity/Vol] 16 U/L Normal 0-35 U/L [facility] Comment on above: Performed By: #### 4 [id number] ####[facility] [address] [place], [place] [address] Abbi Choudhary M.D. [id number] Bilirubin [Mass/Vol] 0.5 mg/dL Normal 0.0-1.3 [facility] Comment on above: Performed By: #### 4 [id number] ####[facility] [address] [place] [address] Abbi Choudhary M.D. [id number] BILIRUBIN, DIRECT < Normal 0.0-0.4 [facility] Comment on above: Performed By: #### 4 5866 ####[facility] [address] [place], [place] [address] Abbi Choudhary M.D. [id number] Protein [Mass/Vol] 8.1 g/dL High 6.0-8.0 [facility] Comment on above: Performed By: #### 4 [id number] ####[facility] [address] [place], [place] [address] Abbi Choudhary M.D. [id number] Hepatic function 2000 panelo n 03-24-2024 Albumin [Mass/Vol] 4.2 g/dL 3.2 - 5.2 g/dL [facility] ALP [Catalytic activity/Vol] 139 U/L 40 - 150 U/L [facility] ALT [Catalytic activity/Vol] 16 U/L 0-35 U/L [facility] AST [Catalytic activity/Vol] 16 U/L 0-35 U/L [facility] Bilirubin [Mass/Vol] 0.5 mg/dL 0.0 - 1 .3 mg/dL [facility] Bilirubin.conjugated [Mass/Vol] mg/dL 0.0 - 0.4 mg/dL [facility] Interpretation and review of laboratory results Abnormal [facility] Protein [Mass/Vol] 8.1 g/dL High 6.0 - 8.0 g/dL [facility] LACTIC ACID, WHOLE BLOODon 1 LACTIC ACID, WHOLE BLOOD 3.0 mmol/L High 0.6-2.0 [facility] Comment on above: Performed By: #### 1 1929 ####[facility] [address] [place], [place] [address] Abbi Choudhary M.D. [id number] Lactate (Bld) [Moles/Vol]on 03-24-2024 Interpretation and review of laboratory results Abnormal [facility] Lactate [Moles/Vol] 3 mmol/L High 0.6 - 2. 0 mmol/L [facility] Light Blue Topon 03-24-2024 Extra Tube Hold for add-ons. [facility] No Panel Informationon 03-24 [facility] SEDIMENTATION RATEon 024 SEDIMENTATION RATE, ERYTHROCYTE 62 mm/hr High 0-20 [facility] Comment on above: Performed By: #### 4 6477 ####[facility] [address] [place], [place] [address] Abbi Choudhary M.D. [id number] TROPONINon 03-24-2024 BASELINE TROPONIN T NG/L 22 ng/L Off scale high <=14 [facility] Comment on above: Performed By: #### 4 6608 ####[facility] [address] [place], [place] [address]Alisia Choudhary M.D. [id number] TROPONIN T INTERPRETATION Possible acute cardiac injury. Normal [facility] Comment on above: Performed By: #### 4 6608 ####[facility] [address] [place], [place] [address] Abbi Choudhary M.D. [id number] Troponinon 03-24-2024 Interpretation and review of laboratory results Abnormal [facility] Troponin T 22 ng/L Critically high NINF - 14 ng/L [facility] Troponin T Interpretation Possible acute cardiac injury. [facility] XR Finger - left 2 Viewson 1 0-31-2024 GE RIS GE RIS [facility] Radiology Study observation (narrative) [facility] XR Finger - left 2 ViewsOrde red By: Mayco Cortez on 03-24-2024 [facility] Work Phone: XR TOE(S) LEFT 2+ VIEWSon XR TOE(S) LEFT 2+ VIEWS Normal [facility] Comment on above: Order Comment: Injur y/Trauma [...] for children. Performed By: #### 4 96, [id number] #### [facility] [address], [address] [place] [id number] Adolescent Specialist: Dean Maddox MD VITAMIN D,25-[place],TOTAL,IAon 1 VITAMIN [...] D, (D2,D3), LC/MS/MS is recommended: order code 11200 (patients >2yrs). See Note 1 Note 1 For additional information, please refer to [email or web address]/faq/[email or web address] (This link is being provided for informational/ educational purposes only.) Performed By: #### 4 96, [id number] #### [facility] [address], [address] [place] [address] Adolescent Specialist: Dean Maddox MD B12/FOLATEon 02-11-2024 Cobalamin (Vitamin B12) [Mass/Vol] 203 pg/mL Low 232-1245 [facility] Comment on above: Performed By: #### 4 6967 ####[facility] [address] [place], [place] [address] Abbi Choudhary M.D. [id number] FOLATE 9.1 ng/mL Normal 3.1-17.5 [facility] Comment on above: Result Comment: Defi cient <2.2Borderline 2.2 - 3.0Excessive >17.5 Performed By: #### 4 6967 ####[facility] [address] [place], [place] [address] Abbi Choudhary M.D. [id number] B12/Folateon 02-11-2024 Cobalamin (Vitamin B12) [Mass/Vol] 203 pg/mL Low 232 - 1245 pg/mL [facility] Folate [Mass/Vol] 9.1 ng/mL 3.1 - 17.5 ng/mL [facility] Comment on above: Deficient <2.2 Borderline 2.2 - 3.0 Excessive >17.5 Interpretation and review of laboratory results Abnormal [facility] HEPATIC FUNCTION PANELon Albumin [Mass/Vol] 4.0 g/dL Normal 3.2-5.2 [facility] Comment on above: Performed By: #### 4 [id number] ####[facility] [address] [place], [place] [address] Abbi Choudhary M.D. [id number] ALP [Catalytic activity/Vol] 139 U/L Normal 40-150 [facility] Comment on above: Performed By: #### 4 5866 ####[facility] [address] [place], [place] [address] Abbi Choudhary M.D. [id number] ALT [Catalytic activity/Vol] 13 U/L Normal 0-35 U/L [facility] Comment on above: Performed By: #### 4 [id number] ####[facility] [address] [place], [place] [address] Abbi Choudhary M.D. [id number] AST [Catalytic activity/Vol] 17 U/L Normal 0-35 U/L [facility] Comment on above: Result Comment: Slig htly Hemolyzed Performed By: #### 4 [id number] ####[facility] [address] [place], [place] [address] Abbi Choudhary M.D. [id number] Bilirubin [Mass/Vol] 0.4 mg/dL Normal 0.0-1.3 [facility] Comment on above: Performed By: #### 4 [id number] ####[facility] [address] [place], [place] [address] Abbi Choudhary M.D. [id number] BILIRUBIN, DIRECT < Normal 0.0-0.4 [facility] Comment on above: Performed By: #### 4 5866 ####[facility] [address] [place], [place] [address] Abbi Choudhary M.D. [id number] Protein [Mass/Vol] 7.3 g/dL Normal 6.0-8.0 [facility] Comment on above: Performed By: #### 4 [id number] ####[facility] [address] [place], [place] [address] Abbi Choudhary M.D. [id number] Hepatic function 2000 panelO rdered By: Shy Chou on 02-11-2024 Albumin [Mass/Vol] 4.0 g/dL 3.2 - 5.2 g/dL [facility] ALP [Catalytic activity/Vol] 139 U/L 40 - 150 U/L [facility] ALT [Catalytic activity/Vol] 13 U/L 0-35 U/L [facility] AST [Catalytic activity/Vol] 17 U/L 0-35 U/L [facility] Comment on above: Slightly Hemolyzed Bilirubin [Mass/Vol] 0.4 mg/dL 0.0 - 1 .3 mg/dL [facility] Bilirubin.conjugated [Mass/Vol] mg/dL 0.0 - 0.4 mg/dL [facility] Interpretation and review of laboratory results Normal [facility] Protein [Mass/Vol] 7.3 g/dL 6.0 - 8.0 g/dL [facility] T4, FREEon 02-11-2024 Free T4 [Mass/Vol] 0.9 ng/dL Normal 0.7-1.7 [facility] Comment on above: Performed By: #### 4 [id number] ####[facility] [address] [place] [address] Abbi Choudhary M.D. [id number] TSH WITH REFLEX FREE T4on TSH Qn 4.58 m[IU]/L High 0.27-4.20 [facility] Comment on above: Performed By: #### 4 6612 ####[facility] [address] [place] [address] bAbi Choudhary M.D. [id number] CBCon 01-18-2024 AUTO NRBC 0.0 % Normal [facility] [facility] Comment on above: Performed By: #### 4 [id number] ####[facility] [address] [address] Abbi Choudhary M.D. [id number] AUTO NRBC ABS COUNT 0.00 K/mcL Normal 0.00-0.00 [facility] Comment on above: Performed By: #### 4 [id number] ####[facility] [address] [address] Abbi Choudhary M.D. [id number] Erythrocyte distribution width (RBC) [Ratio] 12.9 % Normal 11.6-14.8 [facility] Comment on above: Performed By: #### 4 [id number] ####[facility] [address] [place], [place] [address] Abbi Choudhary M.D. [id number] Hematocrit (Bld) [Volume fraction] 29.3 % Low 36.0-46.0 [facility] Comment on above: Performed By: #### 4 [id number] ####[facility] [address] [place] [address] Abbi Choudhary M.D. [id number] Hemoglobin (Bld) [Mass/Vol] 9.1 g/dL Low 12.0-16.0 [facility] Comment on above: Performed By: #### 4 [id number] ####[facility] [address] [place], [place] [address] Abbi Choudhary M.D. [id number] MCH (RBC) [Entitic mass] 30.2 pg Normal 26.0-34.0 [facility] Comment on above: Performed By: #### 4 [id number] ####[facility] [address] [place], [place] [address] Abbi Choudhary M.D. [id number] MCV (RBC) [Entitic vol] 97.3 fL Normal 80.0-100.0 [facility] Comment on above: Performed By: #### 4 [id number] ####[facility] [address] [place], [place] [address] Abbi Choudhary M.D. [id number] MEAN CORPUSCULAR HEMOGLOBIN CONC 31.1 g/dL Normal 31.0-37.0 [facility] Comment on above: Performed By: #### 4 [id number] ####[facility] [address] [place], [place] [address] Abbi Choudhary M.D. [id number] Platelet mean volume (Bld) [Entitic vol] 9.1 fL Low 9.4-12.4 [facility] Comment on above: Performed By: #### 4 [id number] ####[facility] [address] [place], [place] [address] Abbi Choudhary M.D. [id number] Platelets (Bld) [#/Vol] 255 10*3/uL Normal 150-400 [facility] Comment on above: Performed By: #### 4 [id number] ####[facility] [address] [place], [place] [address] Abbi Choudhary M.D. [id number] RBC (Bld) [#/Vol] 3.01 10*6/uL Low 4.00-5.20 [facility] Comment on above: Performed By: #### 4 [id number] ####[facility] [address] [place], [place] [address] Abbi Choudhary M.D. [id number] WBC (Bld) [#/Vol] 7.67 10*3/uL Normal 4.50-11.00 [facility] Comment on above: Performed By: #### 4 [id number] ####[facility] [address] [address] Abbi Choudhary M.D. [id number] CBC panel Auto (Bld)on 01-17 Erythrocyte distribution width (RBC) [Entitic vol] 12.9 % 11.6 - 14.8 % [facility] Hematocrit (Bld) [Volume fraction] 29.3 % Low 36.0 - 46.0 % [facility] Hemoglobin (Bld) [Mass/Vol] 9.1 g/dL Low 12.0 - 16.0 g/dL [facility] Interpretation and review of laboratory results Abnormal [facility] MCH (RBC) [Entitic mass] 30.2 pg 26.0 - 34.0 pg [facility] MCHC (RBC) [Mass/Vol] 31.1 g/dL 31.0 - 37.0 g/dL [facility] MCV (RBC) [Entitic vol] 97.3 fL 80.0 - 100.0 fL [facility] Nucleated RBC (Bld) [#/Vol] 0.00 10*3/uL [facility] Nucleated RBC/100 WBC (Bld) [Ratio] 0.0 % [facility] Platelet mean volume (Bld) [Entitic vol] 9.1 fL Low 9.4 - 12.4 fL [facility] Platelets (Bld) [#/Vol] 255 10*3/uL [facility] RBC (Bld) [#/Vol] 3.01 10*6/uL Low [facility] WBC (Bld) [#/Vol] 7.67 10*3/uL [facility] eah [facility] Disch Summon 01-18-2024 Disch Summ Normal [facility] Glucose (Bld) [Mass/Vol]on 0 01-18-2024 Glucose [Mass/Vol] 82 mg/dL 65 - 99 mg/dL [facility] Interpretation and review of laboratory results Normal [facility] Glucose [Mass/Vol] 71 mg/dL 65 - 99 mg/dL [facility] Interpretation and review of laboratory results Normal [facility] Glucose [Mass/Vol] 66 mg/dL 65 - 99 mg/dL [facility] Interpretation and review of laboratory results Normal [facility] Glucose [Mass/Vol] 82 mg/dL Normal 65-99 [facility] Comment on above: Performed By: #### 4 [id number] ####[facility] [address] [place], [place] [address] Abbi Choudhary M.D. [id number] Glucose [Mass/Vol] 71 mg/dL Normal 65- [facility] Comment on above: Performed By: #### 4 [id number] ####[facility] [address] [place], [place] [address] Abbi Choudhary M.D. [id number] Glucose [Mass/Vol] 66 mg/dL Normal [address] [place] [address] Comment on above: Performed By: #### 4 [id number] ####[facility] [address] [place], [place] [address] Abbi Choudhary M.D. [id number] RENAL FUNCTION PANEL 01-17 Albumin [Mass/Vol] 3.2 g/dL Normal 3.2-5.2 [facility] Comment on above: Order Comment: [facility] has implemented the eGFR calculation approach that does not have a coefficient for race that conforms to the NKF-ASN Task Force Recommendations. Performed By: #### 4 [id number] ####[facility] [address] [place], [place] [address] Abbi Choudhary M.D. [id number] Anion gap [Moles/Vol] 12 mmol/L Normal 10-20 [facility] Comment on above: Order Comment: [facility] has implemented the eGFR calculation approach that does not have a coefficient for race that conforms to the NKF-ASN Task Force Recommendations. Performed By: #### 4 [id number] ####[facility] [address] [place], [place] [address] Abbi Choudhary M.D. [id number] Calcium [Mass/Vol] 8.6 mg/dL Normal 8.4-10.2 [facility] Comment on above: Order Comment: [facility] has implemented the eGFR calculation approach that does not have a coefficient for race that conforms to the NKF-ASN Task Force Recommendations. Performed By: #### 4 [id number] ####[facility] [address] [place], [place] [address] Abbi Choudhary M.D. [id number] Chloride [Moles/Vol] 112 mmol/L High 98-108 [facility] Comment on above: Order Comment: [facility] has implemented the eGFR calculation approach that does not have a coefficient for race that conforms to the NKF-ASN Task Force Recommendations. Performed By: #### 4 [id number] ####[facility] [address] [place], [place] [address] Abbi Choudhary M.D. [id number] Creatinine [Mass/Vol] 1.67 mg/dL High 0.40-1.10 [facility] Comment on above: Order Comment: [facility] has implemented the eGFR calculation approach that does not have a coefficient for race that conforms to the NKF-ASN Task Force Recommendations. Performed By: #### 4 [id number] ####[facility] [address] [place], [place] [address] Abbi Choudhary M.D. [id number] EGFR 38 mL/min/1.73 m2 Low >=60 [facility] Comment on above: Order Comment: [facility] has implemented the eGFR calculation approach that does not have a coefficient for race that conforms to the NKF-ASN Task Force Recommendations. Result Comment: Lorie mated GFR was calculated using the 2020 CKD-EPI creatinine equation. Performed By: #### 4 [id number] ####[facility] [address] [place], [place] [address] Abbi Choudhary M.D. [id number] Glucose [Mass/Vol] 78 mg/dL Normal 65-99 [facility] Comment on above: Order Comment: [facility] has implemented the eGFR calculation approach that does not have a coefficient for race that conforms to the NKF-ASN Task Force Recommendations. Performed By: #### 4 [id number] ####[facility] [address] [place], [place] [address] Abbi Choudhary M.D. [id number] HCO3 (Bld) [Moles/Vol] 24 mmol/L Normal 21-32 [facility] Comment on above: Order Comment: [facility] has implemented the eGFR calculation approach that does not have a coefficient for race that conforms to the NKF-ASN Task Force Recommendations. Performed By: #### 4 [id number] ####[facility] [address] [place], [place] [address] Abbi Choudhary M.D. [id number] Phosphate [Mass/Vol] 3.9 mg/dL Normal 2.7-4.5 [facility] Comment on above: Order Comment: [facility] has implemented the eGFR calculation approach that does not have a coefficient for race that conforms to the NKF-ASN Task Force Recommendations. Performed By: #### 4 [id number] ####[facility] [address] [place], [place] [address] Abbi Choudhary M.D. [id number] Potassium [Moles/Vol] 4.6 mmol/L Normal 3.5-5.1 [facility] Comment on above: Order Comment: [facility] has implemented the eGFR calculation approach that does not have a coefficient for race that conforms to the NKF-ASN Task Force Recommendations. Performed By: #### 4 [id number] ####[facility] [address] [place], [place] [address] Abbi Choudhary M.D. [id number] Sodium [Moles/Vol] 143 mmol/L Normal 135-145 [facility] Comment on above: Order Comment: [facility] has implemented the eGFR calculation approach that does not have a coefficient for race that conforms to the NKF-ASN Task Force Recommendations. Performed By: #### 4 [id number] ####[facility] [address] [place], [place] [address] Abbi Choudhary M.D. [id number] Urea nitrogen [Mass/Vol] 34 mg/dL High 8-25 [facility] Comment on above: Order Comment: [facility] has implemented the eGFR calculation approach that does not have a coefficient for race that conforms to the NKF-ASN Task Force Recommendations. Performed By: #### 4 [id number] ####[facility] [address] [place], [place] [address]Alisia Choudhary M.D. [id number] Urea nitrogen/Creatinine [Mass ratio] 20.4 mg/mg High 10.0-20.0 [facility] Comment on above: Order Comment: [facility] has implemented the eGFR calculation approach that does not have a coefficient for race that conforms to the NKF-ASN Task Force Recommendations. Performed By: #### 4 [id number] ####[facility] [address] [address] Abbi Choudhary M.D. [id number] [facility] Albumin [Mass/Vol] 3.2 g/dL 3.2 - 5.2 g/dL [facility] Anion gap [Moles/Vol] 12 mmol/L 10 - 2 0 mmol/L [facility] Calcium [Mass/Vol] 8.6 mg/dL 8.4 - 10. 2 mg/dL [facility] Chloride [Moles/Vol] 112 mmol/L High 98 - 10 8 mmol/L [facility] Creatinine [Mass/Vol] 1.67 mg/dL High 0.40 - 1.10 mg/dL [facility] GFR/1.73 sq M.predicted CKD-EPI (S/P/Bld) [Vol rate/Area] 38 [facility] Comment on above: Estimated GFR was ca lculated using the 2020 CKD-EPI creatinine equation. Glucose [Mass/Vol] 78 mg/dL 65 - 99 mg/dL [facility] HCO3 [Moles/Vol] 24 mmol/L 21 - 32 mmol/L [facility] Interpretation and review of laboratory results Abnormal [facility] Phosphate [Mass/Vol] 3.9 mg/dL 2.7 - 4 .5 mg/dL [facility] Potassium [Moles/Vol] 4.6 mmol/L 3.5 - 5.1 mmol/L [facility] Sodium [Moles/Vol] 143 mmol/L 135 - 145 mmol/L [facility] Urea nitrogen [Mass/Vol] 34 mg/dL High 8 - 25 mg/dL [facility] Urea nitrogen/Creatinine [Mass ratio] 20.4 mg/mg High 10.0 - 20.0 [facility] has implemented the eGFR calculation approach that does not have a coefficient for race that conforms to the NKF-ASN Task Force Recommendations. [facility] US Kidney - bilateral and Ur inary bladderon 01-18-2024 1. Normal renal ultrasound. [facility] Workstation ID: [id number] [employer] EXAMINATION: US RENAL AND BLADDER HISTORY: SOLO [...] bladder filling defects. Bladder volume: 80 mL [facility] Anant Bonds MD - 01/18/2024 EXAMINATION: [...] 80 mL IMPRESSION: 1. Normal renal ultrasound. [employer] Workstation ID: [id number] [facility] US Kidney - bilateral and Ur inary bladderOrdered By: Anant Bonds on 01-18-2024 [facility] Work Phone: [employer]Con 01-17-2024 AUTO NRBC 0.0 % Normal [facility] Comment on above: Performed By: #### 4 [id number] ####[facility] [address] [address] Abbi Choudhary M.D. [id number] AUTO NRBC ABS COUNT 0.00 K/mcL Normal 0.00-0.00 [facility] Comment on above: Performed By: #### 4 [id number] ####[facility] [address] [place], [place] [address] Abbi Choudhary M.D. [id number] Erythrocyte distribution width (RBC) [Ratio] 13.1 % Normal 11.6-14.8 [facility] Comment on above: Performed By: #### 4 [id number] ####[facility] [address] [place], [place] [address] Abbi Choudhary M.D. [id number] Hematocrit (Bld) [Volume fraction] 28.9 % Low 36.0-46.0 [facility] Comment on above: Performed By: #### 4 [id number] ####[facility] [address] [place], [place] [address] Abbi Choudhary M.D. [id number] Hemoglobin (Bld) [Mass/Vol] 9.3 g/dL Low 12.0-16.0 [facility] Comment on above: Performed By: #### 4 [id number] ####[facility] [address] [place], [place] [address] Abbi Choudhary M.D. [id number] MCH (RBC) [Entitic mass] 30.9 pg Normal 26.0-34.0 [facility] Comment on above: Performed By: #### 4 [id number] ####[facility] [address] [place], [place] [address] Abbi Choudhary M.D. [id number] MCV (RBC) [Entitic vol] 96.0 fL Normal 80.0-100.0 [facility] Comment on above: Performed By: #### 4 [id number] ####[facility] [address] [place], [place] [address] Abbi Choudhary M.D. [id number] MEAN CORPUSCULAR HEMOGLOBIN CONC 32.2 g/dL Normal 31.0-37.0 [facility] Comment on above: Performed By: #### 4 [id number] ####[facility] [address] [place], [place] [address] Abbi Choudhary M.D. [id number] Platelet mean volume (Bld) [Entitic vol] 9.9 fL Normal 9.4-12.4 [facility] Comment on above: Performed By: #### 4 [id number] ####[facility] [address] [place], [place] [address] Abbi Choudhary M.D. [id number] Platelets (Bld) [#/Vol] 259 10*3/uL Normal 150-400 [facility] Comment on above: Performed By: #### 4 [id number] ####[facility] [address] [place], [place] [address] Abbi Choudhary M.D. [id number] RBC (Bld) [#/Vol] 3.01 10*6/uL Low 4.00-5.20 [facility] Comment on above: Performed By: #### 4 [id number] ####[facility] [address] [place], [place] [address] Abbi Choudhary M.D. [id number] WBC (Bld) [#/Vol] 7.74 10*3/uL Normal 4.50-11.00 [facility] Comment on above: Performed By: #### 4 [id number] ####[facility] [address] [place], [place] [address] Abbi Choudhary M.D. [id number] CBC panel Auto (Bld)on 01-16 Erythrocyte distribution width (RBC) [Entitic vol] 13.1 % 11.6 - 14.8 % [facility] Hematocrit (Bld) [Volume fraction] 28.9 % Low 36.0 - 46.0 % [facility] Hemoglobin (Bld) [Mass/Vol] 9.3 g/dL Low 12.0 - 16.0 g/dL [facility] Interpretation and review of laboratory results Abnormal [facility] MCH (RBC) [Entitic mass] 30.9 pg 26.0 - 34.0 pg [facility] MCHC (RBC) [Mass/Vol] 32.2 g/dL 31.0 - 37.0 g/dL [facility] MCV (RBC) [Entitic vol] 96.0 fL 80.0 - 100.0 fL [facility] Nucleated RBC (Bld) [#/Vol] 0.00 10*3/uL [facility] Nucleated RBC/100 WBC (Bld) [Ratio] 0.0 % [facility] Platelet mean volume (Bld) [Entitic vol] 9.9 fL 9.4 - 12.4 fL [facility] Platelets (Bld) [#/Vol] 259 10*3/uL [facility] RBC (Bld) [#/Vol] 3.01 10*6/uL Low [facility] WBC (Bld) [#/Vol] 7.74 10*3/uL [facility] CT HEAD WITHOUT CONTRAST ([facility])on 01-17-2024 CT HEAD WITHOUT CONTRAST (STROKE) Normal [facility] Comment on above: Order Comment: Injur y/Trauma or Illness?:Illness/OtherHow long have you had these symptoms (acute/chronic)?:AcuteReason for exam?:L sided parathesias, change in mentationType of Exam?:InitialAdditional signs and symptoms?:na CT Head WO contraston 2023 Negative for acute hemorrhage or acute intracranial process. 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, limited to breakdown of skin ([facility]) L97.521 Diabetic ulcer of toe of left foot associated with type 2 diabetes mellitus, limited to breakdown of skin ([facility]) E11.621 Diabetic ulcer of left great toe ([facility]) L97.529 Diabetic ulcer of left great toe ([facility]) R56.9 Seizures ([facility]) E11.42 Type 2 diabetes mellitus with diabetic polyneuropathy, with long-term current use of insulin ([facility]) Z79.4 Type 2 diabetes mellitus with diabetic polyneuropathy, with long-term current use of insulin ([facility]) COMPARISON: CTA head and neck 11/07/2023 TECHNIQUE: [...] There are no abnormal extraaxial fluid collections. [facility] Elvis Mae MD - 01/17/2024 EXAMINATION: [...] or acute intracranial process. Workstation ID: [id number] [facility] Radiology Study observation (narrative) [facility] CT Head WO contrastOrdered B y: Elvis Mae on 01-17-2024 [facility] Work Phone: Glucose (Bld) [Mass/Vol]on 0 01-17-2024 Glucose [Mass/Vol] 87 mg/dL 65 - 99 mg/dL [facility] Interpretation and review of laboratory results Normal [facility] Glucose [Mass/Vol] 255 mg/dL High 65 - 99 mg/dL [facility] Interpretation and review of laboratory results Abnormal [facility] Glucose [Mass/Vol] 93 mg/dL 65 - 99 mg/dL [facility] Interpretation and review of laboratory results Normal [facility] Glucose [Mass/Vol] 58 mg/dL Low 65 - 99 mg/dL [facility] Interpretation and review of laboratory results Abnormal [facility] Glucose [Mass/Vol] 86 mg/dL 65 - 99 mg/dL [facility] Interpretation and review of laboratory results Normal [facility] POC GLUCOSE - [facility] 024 Glucose [Mass/Vol] 87 mg/dL Normal 65-99 [facility] Comment on above: Performed By: #### 4 [id number] ####[facility] [address] [place], [place] [address] Abbi Choudhary M.D. [id number] Glucose [Mass/Vol] 255 mg/dL High 65- [facility] Comment on above: Performed By: #### 4 [id number] ####[facility] [address] [place], [place] [address] Abbi Choudhary M.D. [id number] Glucose [Mass/Vol] 93 mg/dL Normal 65-99 [facility] Comment on above: Performed By: #### 4 [id number] ####[facility] [address] [place], [place] [address] Abbi Choudhary M.D. [id number] Glucose [Mass/Vol] 58 mg/dL Low [address] [place] [address] Comment on above: Performed By: #### 4 [id number] ####[facility] [address] [place], [place] [address] Abbi Choudhary M.D. [id number] Glucose [Mass/Vol] 86 mg/dL Normal [address] [place] [address] Comment on above: Performed By: #### 4 [id number] ####[facility] [address] [place], [place] [address] Abbi Choudhary M.D. [id number] RENAL FUNCTION PANELon 01-16 Albumin [Mass/Vol] 3.2 g/dL Normal 3.2-5.2 [facility] Comment on above: Order Comment: [facility] has implemented the eGFR calculation approach that does not have a coefficient for race that conforms to the NKF-ASN Task Force Recommendations. Performed By: #### 4 [id number] ####[facility] [address] [place], [place] [address] Abbi Choudhary M.D. [id number] Anion gap [Moles/Vol] 12 mmol/L Normal 10-20 [facility] Comment on above: Order Comment: [facility] has implemented the eGFR calculation approach that does not have a coefficient for race that conforms to the NKF-ASN Task Force Recommendations. Performed By: #### 4 [id number] ####[facility] [address] [place], [place] [address] Abbi Choudhary M.D. [id number] Calcium [Mass/Vol] 8.6 mg/dL Normal 8.4-10.2 [facility] Comment on above: Order Comment: [facility] has implemented the eGFR calculation approach that does not have a coefficient for race that conforms to the NKF-ASN Task Force Recommendations. Performed By: #### 4 [id number] ####[facility] [address] [place], [place] [address] Abbi Choudhary M.D. [id number] Chloride [Moles/Vol] 113 mmol/L High 98-108 [facility] Comment on above: Order Comment: [facility] has implemented the eGFR calculation approach that does not have a coefficient for race that conforms to the NKF-ASN Task Force Recommendations. Performed By: #### 4 [id number] ####[facility] [address] [place], [place] [address] Abbi Choudhary M.D. [id number] Creatinine [Mass/Vol] 1.69 mg/dL High 0.40-1.10 [facility] Comment on above: Order Comment: [facility] has implemented the eGFR calculation approach that does not have a coefficient for race that conforms to the NKF-ASN Task Force Recommendations. Performed By: #### 4 [id number] ####[facility] [address] [place], [place] [address] Abbi Choudhary M.D. [id number] EGFR 38 mL/min/1.73 m2 Low >=60 [facility] Comment on above: Order Comment: [facility] has implemented the eGFR calculation approach that does not have a coefficient for race that conforms to the NKF-ASN Task Force Recommendations. Result Comment: Lorie mated GFR was calculated using the 2020 CKD-EPI creatinine equation. Performed By: #### 4 [id number] ####[facility] [address] [place], [place] [address] Abbi Choudhary M.D. [id number] Glucose [Mass/Vol] 127 mg/dL High 65-99 [facility] Comment on above: Order Comment: [facility] has implemented the eGFR calculation approach that does not have a coefficient for race that conforms to the NKF-ASN Task Force Recommendations. Performed By: #### 4 [id number] ####[facility] [address] [place], [place] [address] Abbi Choudhary M.D. [id number] HCO3 (Bld) [Moles/Vol] 23 mmol/L Normal 21-32 [facility] Comment on above: Order Comment: [facility] has implemented the eGFR calculation approach that does not have a coefficient for race that conforms to the NKF-ASN Task Force Recommendations. Performed By: #### 4 [id number] ####[facility] [address] [place], [place] [address] Abbi Choudhary M.D. [id number] Phosphate [Mass/Vol] 3.7 mg/dL Normal 2.7-4.5 [facility] Comment on above: Order Comment: [facility] has implemented the eGFR calculation approach that does not have a coefficient for race that conforms to the NKF-ASN Task Force Recommendations. Performed By: #### 4 [id number] ####[facility] [address] [place], [place] [address] Abbi Choudhary M.D. [id number] Potassium [Moles/Vol] 4.8 mmol/L Normal 3.5-5.1 [facility] Comment on above: Order Comment: [facility] has implemented the eGFR calculation approach that does not have a coefficient for race that conforms to the NKF-ASN Task Force Recommendations. Result Comment: Slig htly Hemolyzed Performed By: #### 4 [id number] ####[facility] [address] [place], [place] [address] Abbi Choudhary M.D. [id number] Sodium [Moles/Vol] 143 mmol/L Normal 135-145 [facility] Comment on above: Order Comment: [facility] has implemented the eGFR calculation approach that does not have a coefficient for race that conforms to the NKF-ASN Task Force Recommendations. Performed By: #### 4 [id number] ####[facility] [address] [place], [place] [address] Abbi Choudhary M.D. [id number] Urea nitrogen [Mass/Vol] 30 mg/dL High 01-16 [facility] Comment on above: Order Comment: [facility] has implemented the eGFR calculation approach that does not have a coefficient for race that conforms to the NKF-ASN Task Force Recommendations. Performed By: #### 4 [id number] ####[facility] [address] [place], [place] [address] Abbi Choudhary M.D. [id number] Urea nitrogen/Creatinine [Mass ratio] 17.8 mg/mg Normal 10.0-20.0 [facility] Comment on above: Order Comment: [facility] has implemented the eGFR calculation approach that does not have a coefficient for race that conforms to the NKF-ASN Task Force Recommendations. Performed By: #### 4 [id number] ####[facility] [address] [place], [place] [address] Abbi Choudhary M.D. [id number] Renal function 2000 panelOrd ered By: Janelle Juarez on 01-17-2024 Albumin [Mass/Vol] 3.2 g/dL 3.2 - 5.2 g/dL [facility] [place] Anion gap [Moles/Vol] 12 mmol/L 10 - 2 0 mmol/L [facility] Calcium [Mass/Vol] 8.6 mg/dL 8.4 - 10. 2 mg/dL [facility] Chloride [Moles/Vol] 113 mmol/L High 98 - 10 8 mmol/L [facility] Creatinine [Mass/Vol] 1.69 mg/dL High 0.40 - 1.10 mg/dL [facility] GFR/1.73 sq M.predicted CKD-EPI (S/P/Bld) [Vol rate/Area] 38 Low - PINF [facility] Comment on above: Estimated GFR was ca lculated using the 2020 CKD-EPI creatinine equation. Glucose [Mass/Vol] 127 mg/dL High 65 - 99 mg/dL [facility] HCO3 [Moles/Vol] 23 mmol/L 21 - 32 mmol/L [facility] Interpretation and review of laboratory results Abnormal [facility] Phosphate [Mass/Vol] 3.7 mg/dL 2.7 - 4 .5 mg/dL [facility] Potassium [Moles/Vol] 4.8 mmol/L 3.5 - 5.1 mmol/L [facility] Comment on above: Slightly Hemolyzed Sodium [Moles/Vol] 143 mmol/L 135 - 145 mmol/L [facility] Urea nitrogen [Mass/Vol] 30 mg/dL High 8 - 25 mg/dL [facility] Urea nitrogen/Creatinine [Mass ratio] 17.8 mg/mg 10.0 - 20.0 [facility] has implemented the eGFR calculation approach that does not have a coefficient for race that conforms to the NKF-ASN Task Force Recommendations. [facility] CBCon 01-16-2024 AUTO NRBC 0.0 % Normal [facility] Comment on above: Performed By: #### [id number] ####[facility] [address] [place] [address] Abbi Choudhary M.D. [id number] AUTO NRBC ABS COUNT 0.00 K/mcL Normal 0.00-0.00 [facility] Comment on above: Performed By: #### 4 [id number] ####[facility] [address] [place], [place] [address] Abbi Choudhary M.D. [id number] Erythrocyte distribution width (RBC) [Ratio] 13.1 % Normal 11.6-14.8 [facility] Comment on above: Performed By: #### 4 [id number] ####[facility] [address] [place], [place] [address] Abbi Choudhary M.D. [id number] Hematocrit (Bld) [Volume fraction] 30.1 % Low 36.0-46.0 [facility] Comment on above: Performed By: #### 4 [id number] ####[facility] [address] [place], [place] [address] Abbi Choudhary M.D. [id number] Hemoglobin (Bld) [Mass/Vol] 9.4 g/dL Low 12.0-16.0 [facility] Comment on above: Performed By: #### 4 [id number] ####[facility] [address] [place], [place] [address] Abbi Choudhary M.D. [id number] MCH (RBC) [Entitic mass] 30.1 pg Normal 26.0-34.0 [facility] Comment on above: Performed By: #### 4 [id number] ####[facility] [address] [place], [place] [address] Abbi Choudhary M.D. [id number] MCV (RBC) [Entitic vol] 96.5 fL Normal 80.0-100.0 [facility] Comment on above: Performed By: #### 4 [id number] ####[facility] [address] [place], [place] [address] Abbi Choudhary M.D. [id number] MEAN CORPUSCULAR HEMOGLOBIN CONC 31.2 g/dL Normal 31.0-37.0 [facility] Comment on above: Performed By: #### 4 [id number] ####[facility] [address] [place], [place] [address] Abbi Choudhary M.D. [id number] Platelet mean volume (Bld) [Entitic vol] 9.1 fL Low 9.4-12.4 [facility] Comment on above: Performed By: #### 4 [id number] ####[facility] [address] [place], [place] [address] Abbi Choudhary M.D. [id number] Platelets (Bld) [#/Vol] 285 10*3/uL Normal 150-400 [facility] Comment on above: Performed By: #### 4 [id number] ####[facility] [address] [place], [place] [address] Abbi Choudhary M.D. [id number] RBC (Bld) [#/Vol] 3.12 10*6/uL Low 4.00-5.20 [facility] Comment on above: Performed By: #### 4 [id number] ####[facility] [address] [place], [place] [address] Abbi Choudhary M.D. [id number] WBC (Bld) [#/Vol] 8.82 10*3/uL Normal 4.50-11.00 [facility] Comment on above: Performed By: #### 4 [id number] ####[facility] [address] [place], [place] [address] Abbi Choudhary M.D. [id number] CBC panel Auto (Bld)on 01-15 Erythrocyte distribution width (RBC) [Entitic vol] 13.1 % 11.6 - 14.8 % [facility] Hematocrit (Bld) [Volume fraction] 30.1 % Low 36.0 - 46.0 % [facility] Hemoglobin (Bld) [Mass/Vol] 9.4 g/dL Low 12.0 - 16.0 g/dL [facility] Interpretation and review of laboratory results Abnormal [facility] MCH (RBC) [Entitic mass] 30.1 pg 26.0 - 34.0 pg [facility] MCHC (RBC) [Mass/Vol] 31.2 g/dL 31.0 - 37.0 g/dL [facility] MCV (RBC) [Entitic vol] 96.5 fL 80.0 - 100.0 fL [facility] Nucleated RBC (Bld) [#/Vol] 0.00 10*3/uL [facility] Nucleated RBC/100 WBC (Bld) [Ratio] 0.0 % [facility] Platelet mean volume (Bld) [Entitic vol] 9.1 fL Low 9.4 - 12.4 fL [facility] Platelets (Bld) [#/Vol] 285 10*3/uL [facility] RBC (Bld) [#/Vol] 3.12 10*6/uL Low [facility] WBC (Bld) [#/Vol] 8.82 10*3/uL [facility]-16-2024 CONSULT Normal [facility] Glucose (Bld) [Mass/Vol]on 0 01-16-2024 Glucose [Mass/Vol] 211 mg/dL High 65 - 99 mg/dL [facility] Interpretation and review of laboratory results Abnormal [facility] Glucose [Mass/Vol] 106 mg/dL High 65 - 99 mg/dL [facility] Interpretation and review of laboratory results Abnormal [facility] Glucose [Mass/Vol] 222 mg/dL High 65 - 99 mg/dL [facility] Interpretation and review of laboratory results Abnormal [facility] Glucose [Mass/Vol] 69 mg/dL 65 - 99 mg/dL [facility] Interpretation and review of laboratory results Normal [facility] POC GLUCOSE - [facility] 024 Glucose [Mass/Vol] 211 mg/dL High [address] [place] [address] Comment on above: Performed By: #### 4 [id number] ####[facility] [address] [place], [place] [address] Abbi Choudhary M.D. [id number] Glucose [Mass/Vol] 106 mg/dL High [address] [place] [address] Comment on above: Performed By: #### 4 [id number] ####[facility] [address] [place], [place] [address] Abbi Choudhary M.D. [id number] Glucose [Mass/Vol] 222 mg/dL High [address] [place] [address] Comment on above: Performed By: #### 4 [id number] ####[facility] [address] [place], [place] [address] Abbi Choudhary M.D. [id number] Glucose [Mass/Vol] 69 mg/dL Normal [address] [place] [address] Comment on above: Performed By: #### 4 [id number] ####[facility] [address] [place], [place] [address] Abbi Choudhary M.D. [id number] RENAL FUNCTION PANEL 01-15 Albumin [Mass/Vol] 3.3 g/dL Normal 3.2-5.2 [facility] Comment on above: Order Comment: [facility] has implemented the eGFR calculation approach that does not have a coefficient for race that conforms to the NKF-ASN Task Force Recommendations. Performed By: #### 4 [id number] ####[facility] [address] [place], [place] [address] Abbi Choudhary M.D. [id number] Anion gap [Moles/Vol] 12 mmol/L Normal - [facility] Comment on above: Order Comment: [facility] has implemented the eGFR calculation approach that does not have a coefficient for race that conforms to the NKF-ASN Task Force Recommendations. Performed By: #### 4 [id number] ####[facility] [address] [place], [place] [address]Alisia Choudhary M.D. [id number] Calcium [Mass/Vol] 8.8 mg/dL Normal 8.4-10.2 [facility] Comment on above: Order Comment: [facility] has implemented the eGFR calculation approach that does not have a coefficient for race that conforms to the NKF-ASN Task Force Recommendations. Performed By: #### 4 [id number] ####[facility] [address] [place], [place] [address] Abbi Choudhary M.D. [id number] Chloride [Moles/Vol] 111 mmol/L High 98-108 [facility] Comment on above: Order Comment: [facility] has implemented the eGFR calculation approach that does not have a coefficient for race that conforms to the NKF-ASN Task Force Recommendations. Performed By: #### 4 [id number] ####[facility] [address] [place], [place] [address] Abbi Choudhary M.D. [id number] Creatinine [Mass/Vol] 1.63 mg/dL High 0.40-1.10 [facility] Comment on above: Order Comment: [facility] has implemented the eGFR calculation approach that does not have a coefficient for race that conforms to the NKF-ASN Task Force Recommendations. Performed By: #### 4 [id number] ####[facility] [address] [place], [place] [address] Abbi Choudhary M.D. [id number] EGFR 39 mL/min/1.73 m2 Low >=60 [facility] Comment on above: Order Comment: [facility] has implemented the eGFR calculation approach that does not have a coefficient for race that conforms to the NKF-ASN Task Force Recommendations. Result Comment: Lorie mated GFR was calculated using the 2020 CKD-EPI creatinine equation. Performed By: #### 4 [id number] ####[facility] [address] [place], [place] [address] Abbi Choudhary M.D. [id number] Glucose [Mass/Vol] 103 mg/dL High 65-99 [facility] Comment on above: Order Comment: [facility] has implemented the eGFR calculation approach that does not have a coefficient for race that conforms to the NKF-ASN Task Force Recommendations. Performed By: #### 4 [id number] ####[facility] [address] [place], [place] [address] Abbi Choudhary M.D. [id number] HCO3 (Bld) [Moles/Vol] 25 mmol/L Normal 21-32 [facility] Comment on above: Order Comment: [facility] has implemented the eGFR calculation approach that does not have a coefficient for race that conforms to the NKF-ASN Task Force Recommendations. Performed By: #### 4 [id number] ####[facility] [address] [place], [place] [address] Abbi Choudhary M.D. [id number] Phosphate [Mass/Vol] 4.1 mg/dL Normal 2.7-4.5 [facility] Comment on above: Order Comment: [facility] has implemented the eGFR calculation approach that does not have a coefficient for race that conforms to the NKF-ASN Task Force Recommendations. Performed By: #### 4 [id number] ####[facility] [address] [place], [place] [address] Abbi Choudhary M.D. [id number] Potassium [Moles/Vol] 4.5 mmol/L Normal 3.5-5.1 [facility] Comment on above: Order Comment: [facility] has implemented the eGFR calculation approach that does not have a coefficient for race that conforms to the NKF-ASN Task Force Recommendations. Performed By: #### 4 [id number] ####[facility] [address] [place], [place] [address] Abbi Choudhary M.D. [id number] Sodium [Moles/Vol] 143 mmol/L Normal 135-145 [facility] Comment on above: Order Comment: [facility] has implemented the eGFR calculation approach that does not have a coefficient for race that conforms to the NKF-ASN Task Force Recommendations. Performed By: #### 4 [id number] ####[facility] [address] [place], [place] [address] Abbi Choudhary M.D. [id number] Urea nitrogen [Mass/Vol] 27 mg/dL High 8-25 [facility] Comment on above: Order Comment: [facility] has implemented the eGFR calculation approach that does not have a coefficient for race that conforms to the NKF-ASN Task Force Recommendations. Performed By: #### 4 [id number] ####[facility] [address] [place], [place] [address] Abbi Choudhary M.D. [id number] Urea nitrogen/Creatinine [Mass ratio] 16.6 mg/mg Normal 10.0-20.0 [facility] Comment on above: Order Comment: [facility] has implemented the eGFR calculation approach that does not have a coefficient for race that conforms to the NKF-ASN Task Force Recommendations. Performed By: #### 4 [id number] ####[facility] [address] [place], [place] [address] Abbi Choudhary M.D. [id number] Renal function 2000 [facility] 01-16-2024 Albumin [Mass/Vol] 3.3 g/dL 3.2 - 5.2 g/dL [facility] Anion gap [Moles/Vol] 12 mmol/L 10 - 2 0 mmol/L [facility] Calcium [Mass/Vol] 8.8 mg/dL 8.4 - 10. 2 mg/dL [facility] Chloride [Moles/Vol] 111 mmol/L High 98 - 10 8 mmol/L [facility] Creatinine [Mass/Vol] 1.63 mg/dL High 0.40 - 1.10 mg/dL [facility] GFR/1.73 sq M.predicted CKD-EPI (S/P/Bld) [Vol rate/Area] 39 Low - PINF [facility] Comment on above: Estimated GFR was ca lculated using the 2020 CKD-EPI creatinine equation. Glucose [Mass/Vol] 103 mg/dL High 65 - 99 mg/dL [facility] HCO3 [Moles/Vol] 25 mmol/L 21 - 32 mmol/L [facility] Interpretation and review of laboratory results Abnormal [facility] Phosphate [Mass/Vol] 4.1 mg/dL 2.7 - 4 .5 mg/dL [facility] Potassium [Moles/Vol] 4.5 mmol/L 3.5 - 5.1 mmol/L [facility] Sodium [Moles/Vol] 143 mmol/L 135 - 145 mmol/L [facility] Urea nitrogen [Mass/Vol] 27 mg/dL High 8 - 25 mg/dL [facility] Urea nitrogen/Creatinine [Mass ratio] 16.6 mg/mg 10.0 - 20.0 [facility] has implemented the eGFR calculation approach that does not have a coefficient for race that conforms to the NKF-ASN Task Force Recommendations. [facility] URINALYSISon 01-16-2024 BACTERIA, URINE Rare Abnormal None Seen [facility] Comment on above: Order Comment: Micro scopic examination is performed on all urinalysis samples and only positive findings are reported. The test for blood on the chemical analytic portion of urinalysis may also be positive due to hemoglobinuria and myoglobinuria and if red blood cells are present they are quantified by microscopic examination. Performed By: #### 4 [id number] ####[facility] [address] [place] [address] Abbi Choudhary M.D. [id number] BILIRUBIN, URINE Negative Normal Negative [facility] Comment on above: Order Comment: Micro scopic examination is performed on all urinalysis samples and only positive findings are reported. The test for blood on the chemical analytic portion of urinalysis may also be positive due to hemoglobinuria and myoglobinuria and if red blood cells are present they are quantified by microscopic examination. Performed By: #### 4 [id number] ####[facility] [address] [place], [place] [address] Abbi Choudhary M.D. [id number] BLOOD, URINE Negative Normal Negative [facility] Comment on above: Order Comment: Micro scopic examination is performed on all urinalysis samples and only positive findings are reported. The test for blood on the chemical analytic portion of urinalysis may also be positive due to hemoglobinuria and myoglobinuria and if red blood cells are present they are quantified by microscopic examination. Performed By: #### 4 [id number] ####[facility] [address] [place] [address] Abbi Choudhary M.D. [id number] Clarity (U) Clear Normal Clear [facility] Comment on above: Order Comment: Micro scopic examination is performed on all urinalysis samples and only positive findings are reported. The test for blood on the chemical analytic portion of urinalysis may also be positive due to hemoglobinuria and myoglobinuria and if red blood cells are present they are quantified by microscopic examination. Performed By: #### 4 [id number] ####[facility] [address] [place], [place] [address] Abbi Choudhary M.D. [id number] Color (U) Yellow Normal Colorless, Yellow [facility] Comment on above: Order Comment: Micro scopic examination is performed on all urinalysis samples and only positive findings are reported. The test for blood on the chemical analytic portion of urinalysis may also be positive due to hemoglobinuria and myoglobinuria and if red blood cells are present they are quantified by microscopic examination. Performed By: #### 4 [id number] ####[facility] [address] [place] [address] Abbi Choudhary M.D. [id number] Glucose Ql (U) 50 mg/dL Abnormal Negative [facility] Comment on above: Order Comment: Micro scopic examination is performed on all urinalysis samples and only positive findings are reported. The test for blood on the chemical analytic portion of urinalysis may also be positive due to hemoglobinuria and myoglobinuria and if red blood cells are present they are quantified by microscopic examination. Performed By: #### 4 [id number] ####[facility] [address] [place], [place] [address] Abbi Choudhary M.D. [id number] Hyaline casts LM Ql (Urine sed) 3-5 Abnormal 0-2 [facility] Comment on above: Order Comment: Micro scopic examination is performed on all urinalysis samples and only positive findings are reported. The test for blood on the chemical analytic portion of urinalysis may also be positive due to hemoglobinuria and myoglobinuria and if red blood cells are present they are quantified by microscopic examination. Performed By: #### 4 [id number] ####[facility] [address] [place] [id number] Abbi Choudhary M.D. [id number] Ketones Ql (U) Negative Normal Negative [facility] Comment on above: Order Comment: Micro scopic examination is performed on all urinalysis samples and only positive findings are reported. The test for blood on the chemical analytic portion of urinalysis may also be positive due to hemoglobinuria and myoglobinuria and if red blood cells are present they are quantified by microscopic examination. Performed By: #### 4 [id number] ####[facility] [address] [place], [place] [address] Abbi Choudhary M.D. [id number] Leukocyte esterase Test strip Ql (U) Negative Normal Negative [facility] Comment on above: Order Comment: Micro scopic examination is performed on all urinalysis samples and only positive findings are reported. The test for blood on the chemical analytic portion of urinalysis may also be positive due to hemoglobinuria and myoglobinuria and if red blood cells are present they are quantified by microscopic examination. Performed By: #### 4 [id number] ####[facility] [address] [place] [address] Abbi Choudhary M.D. [id number] MUCUS, URINE Rare Normal None Seen, Rare [facility] Comment on above: Order Comment: Micro scopic examination is performed on all urinalysis samples and only positive findings are reported. The test for blood on the chemical analytic portion of urinalysis may also be positive due to hemoglobinuria and myoglobinuria and if red blood cells are present they are quantified by microscopic examination. Performed By: #### 4 [id number] ####[facility] [address] [place], [place] [address] Abbi Choudhary M.D. [id number] NITRITE, URINE Negative Normal Negative [facility] Comment on above: Order Comment: Micro scopic examination is performed on all urinalysis samples and only positive findings are reported. The test for blood on the chemical analytic portion of urinalysis may also be positive due to hemoglobinuria and myoglobinuria and if red blood cells are present they are quantified by microscopic examination. Performed By: #### 4 [id number] ####[facility] [address] [place], [place] [address] Abbi Choudhary M.D. [id number] pH (U) 5.0 [pH] Normal 5.0-7.0 [facility] Comment on above: Order Comment: Micro scopic examination is performed on all urinalysis samples and only positive findings are reported. The test for blood on the chemical analytic portion of urinalysis may also be positive due to hemoglobinuria and myoglobinuria and if red blood cells are present they are quantified by microscopic examination. Performed By: #### 4 [id number] ####[facility] [address] [place] [address] Abbi Choudhary M.D. [id number] Protein (U) [Mass/Vol] 100 mg/dL Abnormal Negative [facility] Comment on above: Order Comment: Micro scopic examination is performed on all urinalysis samples and only positive findings are reported. The test for blood on the chemical analytic portion of urinalysis may also be positive due to hemoglobinuria and myoglobinuria and if red blood cells are present they are quantified by microscopic examination. Performed By: #### 4 [id number] ####[facility] [address] [place] [address] Abbi Choudhary M.D. [id number] RBC LM.HPF (Urine sed) [#/Area] 2 /[HPF] Normal 0-3 [facility] Comment on above: Order Comment: Micro scopic examination is performed on all urinalysis samples and only positive findings are reported. The test for blood on the chemical analytic portion of urinalysis may also be positive due to hemoglobinuria and myoglobinuria and if red blood cells are present they are quantified by microscopic examination. Performed By: #### 4 [id number] ####[facility] [address] [place], [place] [address] Abbi Choudhary M.D. [id number] Specific gravity (U) [Rel density] 1.013 Normal 1.005-1.025 [facility] Comment on above: Order Comment: Micro scopic examination is performed on all urinalysis samples and only positive findings are reported. The test for blood on the chemical analytic portion of urinalysis may also be positive due to hemoglobinuria and myoglobinuria and if red blood cells are present they are quantified by microscopic examination. Performed By: #### 4 [id number] ####[facility] [address] [place], [place] [address] Abbi Choudhary M.D. [id number] SQUAMOUS EPITHELIAL 2 /hpf Normal 0-4 [facility] Comment on above: Order Comment: Micro scopic examination is performed on all urinalysis samples and only positive findings are reported. The test for blood on the chemical analytic portion of urinalysis may also be positive due to hemoglobinuria and myoglobinuria and if red blood cells are present they are quantified by microscopic examination. Performed By: #### 4 [id number] ####[facility] [address] [place] [address] Abbi Choudhary M.D. [id number] UROBILINOGEN, URINE <2.0 Normal <2.0 [facility] Comment on above: Order Comment: Micro scopic examination is performed on all urinalysis samples and only positive findings are reported. The test for blood on the chemical analytic portion of urinalysis may also be positive due to hemoglobinuria and myoglobinuria and if red blood cells are present they are quantified by microscopic examination. Performed By: #### 4 [id number] ####[facility] [address] [place], [place] [address] Abbi Choudhary M.D. [id number] WBC LM.HPF (Urine sed) [#/Area] 1 /[HPF] Normal 0-5 [facility] Comment on above: Order Comment: Micro scopic examination is performed on all urinalysis samples and only positive findings are reported. The test for blood on the chemical analytic portion of urinalysis may also be positive due to hemoglobinuria and myoglobinuria and if red blood cells are present they are quantified by microscopic examination. Performed By: #### 4 [id number] ####[facility] [address] [place], [place] [address] Abbi Choudhary M.D. [id number] US Kidney - bilateral and Ur inary bladderon 01-16-2024 Radiology Study observation (narrative) [facility] US RENAL AND BLADDERon 01-15 US RENAL AND BLADDER Normal [facility] Comment on above: Order Comment: Injur y/Trauma or Illness?:Illness/OtherHow long have you had these symptoms (acute/chronic)?:AcuteReason for exam?:akiHistory of cancer?:uSurgeries, chemotherapy, or radiation?:pacemakerType of Exam?:InitialAdditional signs and symptoms?:none UrinalysisOrdered By: Mayela Schmitt on 01-16-2024 Bacteria Auto Ql (U) Rare Abnormal None Se en /hpf [facility] Bil[facility] Ql (U) [facility] Refract[facility] automated (U) Clear Clear [facility] Color (U) Yellow Colorless, Yellow [facility] Epithelial cells.squamous Auto (Urine sed) [#/Area] 2 [facility] Glucose Auto test strip (U) [Mass/Vol] 50 mg/dL Abnormal Negative [facility] Hemoglobin Auto test strip Ql (U) Negative Negative [facility] Hyaline casts Auto (Urine sed) [#/Area] 3-5 Abnormal [facility] Interpretation and review of laboratory results Abnormal [facility] Ketones (U) [Mass/Vol] Negative Negative mg/dL [facility] Leukocyte esterase Auto test strip Ql (U) Negative Negative [facility] Mucus Auto (Urine sed) [#/Area] Rare None Seen, Rare /lpf [facility] Nitrite Auto test strip Ql (U) Negative Negative [facility] pH (U) 5.0 [pH] 5.0 - 7.0 [facility] Protein (U) [Mass/Vol] 100 mg/dL Abnormal Negative [facility] RBC Auto (Urine sed) [#/Area] 2 [facility] Specific gravity (U) [Rel density] 1.013 1.005 - 1.025 [facility] Urobilinogen (U) [Mass/Vol] mg/dL NINF - 2.0 mg/dL [facility] WBC Auto (Urine sed) [#/Area] 1 [facility] Microscopic examinat ion is performed on all urinalysis samples and only positive findings are reported. The test for blood on the chemical analytic portion of urinalysis may also be positive due to hemoglobinuria and myoglobinuria and if red blood cells are present they are quantified by microscopic examination. [facility] CBCon 01-15-2024 AUTO NRBC 0.0 % Normal [facility] Comment on above: Performed By: #### 4 [id number] ####[facility] [address] [place] [address] Abbi Choudhary M.D. [id number] AUTO NRBC ABS COUNT 0.00 K/mcL Normal 0.00-0.00 [facility] Comment on above: Performed By: #### 4 [id number] ####[facility] [address] [place], [place] [address] Abbi Choudhary M.D. [id number] Erythrocyte distribution width (RBC) [Ratio] 13.1 % Normal 11.6-14.8 [facility] Comment on above: Performed By: #### 4 [id number] ####[facility] [address] [place], [place] [address] Abbi Choudhary M.D. [id number] Hematocrit (Bld) [Volume fraction] 31.2 % Low 36.0-46.0 [facility] Comment on above: Performed By: #### 4 [id number] ####[facility] [address] [place], [place] [address] Abbi Choudhary M.D. [id number] Hemoglobin (Bld) [Mass/Vol] 9.9 g/dL Low 12.0-16.0 [facility] Comment on above: Performed By: #### 4 [id number] ####[facility] [address] [place], [place] [address] Abbi Choudhary M.D. [id number] MCH (RBC) [Entitic mass] 30.6 pg Normal 26.0-34.0 [facility] Comment on above: Performed By: #### 4 [id number] ####[facility] [address] [place], [place] [address] Abbi Choudhary M.D. [id number] MCV (RBC) [Entitic vol] 96.3 fL Normal 80.0-100.0 [facility] Comment on above: Performed By: #### 4 [id number] ####[facility] [address] [place], [place] [address] Abbi Choudhary M.D. [id number] MEAN CORPUSCULAR HEMOGLOBIN CONC 31.7 g/dL Normal 31.0-37.0 [facility] Comment on above: Performed By: #### 4 [id number] ####[facility] [address] [place], [place] [address] Abbi Choudhary M.D. [id number] Platelet mean volume (Bld) [Entitic vol] 9.3 fL Low 9.4-12.4 [facility] Comment on above: Performed By: #### 4 [id number] ####[facility] [address] [place], [place] [address] Abbi Choudhary M.D. [id number] Platelets (Bld) [#/Vol] 266 10*3/uL Normal 150-400 [facility] Comment on above: Performed By: #### 4 [id number] ####[facility] [address] [place] [address] Abbi Choudhary M.D. [id number] RBC (Bld) [#/Vol] 3.24 10*6/uL Low 4.00-5.20 [facility] Comment on above: Performed By: #### 4 [id number] ####[facility] [address] [place] [address] Abbi Choudhary M.D. [id number] WBC (Bld) [#/Vol] 7.12 10*3/uL Normal 4.50-11.00 [facility] Comment on above: Performed By: #### 4 [id number] ####[facility] [address] [place], [place] [address] Abbi Choudhary M.D. [id number] CBC panel Auto (Bld)on 01-14 Erythrocyte distribution width (RBC) [Entitic vol] 13.1 % 11.6 - 14.8 % [facility] Hematocrit (Bld) [Volume fraction] 31.2 % Low 36.0 - 46.0 % [facility] Hemoglobin (Bld) [Mass/Vol] 9.9 g/dL Low 12.0 - 16.0 g/dL [facility] Interpretation and review of laboratory results Abnormal [facility] MCH (RBC) [Entitic mass] 30.6 pg 26.0 - 34.0 pg [facility] MCHC (RBC) [Mass/Vol] 31.7 g/dL 31.0 - 37.0 g/dL [facility] MCV (RBC) [Entitic vol] 96.3 fL 80.0 - 100.0 fL [facility] Nucleated RBC (Bld) [#/Vol] 0.00 10*3/uL [facility] Nucleated RBC/100 WBC (Bld) [Ratio] 0.0 % [facility] Platelet mean volume (Bld) [Entitic vol] 9.3 fL Low 9.4 - 12.4 fL [facility] Platelets (Bld) [#/Vol] 266 10*3/uL [facility] RBC (Bld) [#/Vol] 3.24 10*6/uL Low [facility] eah WBC (Bld) [#/Vol] 7.12 10*3/uL [facility] Glucose (Bld) [Mass/Vol]on 0 01-15-2024 Glucose [Mass/Vol] 233 mg/dL High 65 - 99 mg/dL [facility] Interpretation and review of laboratory results Abnormal [facility] Glucose [Mass/Vol] 103 mg/dL High 65 - 99 mg/dL [facility] Interpretation and review of laboratory results Abnormal [facility] Glucose [Mass/Vol] 89 mg/dL 65 - 99 mg/dL [facility] Interpretation and review of laboratory results Normal [facility] Glucose [Mass/Vol] 104 mg/dL High 65 - 99 mg/dL [facility] Interpretation and review of laboratory results Abnormal [facility] POC GLUCOSE - [facility] 024 Glucose [Mass/Vol] 233 mg/dL High 65-[address] [place] [address] Comment on above: Performed By: #### 4 [id number] ####[facility] [address] [place], [place] [address] Abbi Choudhary M.D. [id number] Glucose [Mass/Vol] 103 mg/dL High [address] [place] [address] Comment on above: Performed By: #### 4 6932 ####[facility] [address] [place], [place] [address] Abbi Choudhary M.D. [id number] Glucose [Mass/Vol] 89 mg/dL Normal [address] [place] [address] Comment on above: Performed By: #### 4 [id number] ####[facility] [address] [place], [place] [address] Abbi Choudhary M.D. [id number] Glucose [Mass/Vol] 104 mg/dL High [address] [place] [address] Comment on above: Performed By: #### 4 [id number] ####[facility] [address] [place], [place] [address] Abbi Choudhary M.D. [id number] RENAL FUNCTION PANELon 01-14 Albumin [Mass/Vol] 3.4 g/dL Normal 3.2-5.2 [facility] Comment on above: Order Comment: [facility] has implemented the eGFR calculation approach that does not have a coefficient for race that conforms to the NKF-ASN Task Force Recommendations. Performed By: #### 4 [id number] ####[facility] [address] [place], [place] [address] Abbi Choudhary M.D. [id number] Anion gap [Moles/Vol] 13 mmol/L Normal 10-20 [facility] Comment on above: Order Comment: [facility] has implemented the eGFR calculation approach that does not have a coefficient for race that conforms to the NKF-ASN Task Force Recommendations. Performed By: #### 4 [id number] ####[facility] [address] [place] [address] Abbi Choudhary M.D. [id number] Calcium [Mass/Vol] 8.7 mg/dL Normal 8.4-10.2 [facility] Comment on above: Order Comment: [facility] has implemented the eGFR calculation approach that does not have a coefficient for race that conforms to the NKF-ASN Task Force Recommendations. Performed By: #### 4 [id number] ####[facility] [address] [place], [place] [address] Abbi Choudhary M.D. [id number] Chloride [Moles/Vol] 109 mmol/L High 98-108 [facility] Comment on above: Order Comment: [facility] has implemented the eGFR calculation approach that does not have a coefficient for race that conforms to the NKF-ASN Task Force Recommendations. Performed By: #### 4 [id number] ####[facility] [address] [place], [place] [address] Abbi Choudhary M.D. [id number] Creatinine [Mass/Vol] 1.59 mg/dL High 0.40-1.10 [facility] Comment on above: Order Comment: [facility] has implemented the eGFR calculation approach that does not have a coefficient for race that conforms to the NKF-ASN Task Force Recommendations. Performed By: #### 4 [id number] ####[facility] [address] [place], [place] [address] Abbi Choudhary M.D. [id number] EGFR 40 mL/min/1.73 m2 Low >=60 [facility] Comment on above: Order Comment: [facility] has implemented the eGFR calculation approach that does not have a coefficient for race that conforms to the NKF-ASN Task Force Recommendations. Result Comment: Lorie mated GFR was calculated using the 2020 CKD-EPI creatinine equation. Performed By: #### 4 [id number] ####[facility] [address] [place], [place] [address] Abbi Choudhary M.D. [id number] Glucose [Mass/Vol] 102 mg/dL High 65-99 [facility] Comment on above: Order Comment: [facility] has implemented the eGFR calculation approach that does not have a coefficient for race that conforms to the NKF-ASN Task Force Recommendations. Performed By: #### 4 [id number] ####[facility] [address] [place], [place] [address] Abbi Choudhary M.D. [id number] HCO3 (Bld) [Moles/Vol] 25 mmol/L Normal 21-32 [facility] Comment on above: Order Comment: [facility] has implemented the eGFR calculation approach that does not have a coefficient for race that conforms to the NKF-ASN Task Force Recommendations. Performed By: #### 4 [id number] ####[facility] [address] [place], [place] [address] Abbi Choudhary M.D. [id number] Phosphate [Mass/Vol] 4.8 mg/dL High 2.7-4.5 [facility] Comment on above: Order Comment: [facility] has implemented the eGFR calculation approach that does not have a coefficient for race that conforms to the NKF-ASN Task Force Recommendations. Performed By: #### 4 [id number] ####[facility] [address] [place], [place] [address] Abbi Choudhary M.D. [id number] Potassium [Moles/Vol] 4.2 mmol/L Normal 3.5-5.1 [facility] Comment on above: Order Comment: [facility] has implemented the eGFR calculation approach that does not have a coefficient for race that conforms to the NKF-ASN Task Force Recommendations. Performed By: #### 4 [id number] ####[facility] [address] [place], [place] [address] Abbi Choudhary M.D. [id number] Sodium [Moles/Vol] 143 mmol/L Normal 135-145 [facility] Comment on above: Order Comment: [facility] has implemented the eGFR calculation approach that does not have a coefficient for race that conforms to the NKF-ASN Task Force Recommendations. Performed By: #### 4 [id number] ####[facility] [address] [place], [place] [address] Abbi Choudhary M.D. [id number] Urea nitrogen [Mass/Vol] 27 mg/dL High 8-25 [facility] Comment on above: Order Comment: [facility] has implemented the eGFR calculation approach that does not have a coefficient for race that conforms to the NKF-ASN Task Force Recommendations. Performed By: #### 4 [id number] ####[facility] [address] [place], [place] [address] Abbi Choudhary M.D. [id number] Urea nitrogen/Creatinine [Mass ratio] 17.0 mg/mg Normal 10.0-20.0 [facility] Comment on above: Order Comment: [facility] has implemented the eGFR calculation approach that does not have a coefficient for race that conforms to the NKF-ASN Task Force Recommendations. Performed By: #### 4 [id number] ####[facility] [address] [place], [place] [address] Abbi Choudhary M.D. [id number] Renal function 2000 [facility] 01-15-2024 Albumin [Mass/Vol] 3.4 g/dL 3.2 - 5.2 g/dL [facility] Anion gap [Moles/Vol] 13 mmol/L 10 - 2 0 mmol/L [facility] Calcium [Mass/Vol] 8.7 mg/dL 8.4 - 10. 2 mg/dL [facility] Chloride [Moles/Vol] 109 mmol/L High 98 - 10 8 mmol/L [facility] Creatinine [Mass/Vol] 1.59 mg/dL High 0.40 - 1.10 mg/dL [facility] GFR/1.73 sq M.predicted CKD-EPI (S/P/Bld) [Vol rate/Area] 40 Low - PINF [facility] Comment on above: Estimated GFR was ca lculated using the 2020 CKD-EPI creatinine equation. Glucose [Mass/Vol] 102 mg/dL High 65 - 99 mg/dL [facility] HCO3 [Moles/Vol] 25 mmol/L 21 - 32 mmol/L [facility] Interpretation and review of laboratory results Abnormal [facility] Phosphate [Mass/Vol] 4.8 mg/dL High 2.7 - 4 .5 mg/dL [facility] Potassium [Moles/Vol] 4.2 mmol/L 3.5 - 5.1 mmol/L [facility] Sodium [Moles/Vol] 143 mmol/L 135 - 145 mmol/L [facility] Urea nitrogen [Mass/Vol] 27 mg/dL High 8 - 25 mg/dL [facility] Urea nitrogen/Creatinine [Mass ratio] 17.0 mg/mg 10.0 - 20.0 [facility] has implemented the eGFR calculation approach that does not have a coefficient for race that conforms to the NKF-ASN Task Force Recommendations. [facility] CBCon 01-14-2024 AUTO NRBC 0.0 % Normal [facility] Comment on above: Performed By: #### 4 [id number] ####[facility] [address] [place], [place] [address] Abbi Choudhary M.D. [id number] AUTO NRBC ABS COUNT 0.00 K/mcL Normal 0.00-0.00 [facility] Comment on above: Performed By: #### 4 [id number] ####[facility] [address] [place], [place] [address] Abbi Choudhary M.D. [id number] Erythrocyte distribution width (RBC) [Ratio] 13.2 % Normal 11.6-14.8 [facility] Comment on above: Performed By: #### 4 [id number] ####[facility] [address] [place], [place] [address] Abbi Choudhary M.D. [id number] Hematocrit (Bld) [Volume fraction] 29.6 % Low 36.0-46.0 [facility] Comment on above: Performed By: #### 4 [id number] ####[facility] [address] [place], [place] [address] Abbi Choudhary M.D. [id number] Hemoglobin (Bld) [Mass/Vol] 9.7 g/dL Low 12.0-16.0 [facility] Comment on above: Performed By: #### 4 [id number] ####[facility] [address] [place], [place] [address] Abbi Choudhary M.D. [id number] MCH (RBC) [Entitic mass] 30.8 pg Normal 26.0-34.0 [facility] Comment on above: Performed By: #### 4 [id number] ####[facility] [address] [place], [place] [address] Abbi Choudhary M.D. [id number] MCV (RBC) [Entitic vol] 94.0 fL Normal 80.0-100.0 [facility] Comment on above: Performed By: #### 4 [id number] ####[facility] [address] [place], [place] [address] Abbi Choudhary M.D. [id number] MEAN CORPUSCULAR HEMOGLOBIN CONC 32.8 g/dL Normal 31.0-37.0 [facility] Comment on above: Performed By: #### 4 [id number] ####[facility] [address] [place], [place] [address] Abbi Choudhary M.D. [id number] Platelet mean volume (Bld) [Entitic vol] 9.0 fL Low 9.4-12.4 [facility] Comment on above: Performed By: #### 4 [id number] ####[facility] [address] [place], [place] [address] Abbi Choudhary M.D. [id number] Platelets (Bld) [#/Vol] 264 10*3/uL Normal 150-400 [facility] Comment on above: Performed By: #### 4 [id number] ####[facility] [address] [place], [place] [address] Abbi Choudhary M.D. [id number] RBC (Bld) [#/Vol] 3.15 10*6/uL Low 4.00-5.20 [facility] Comment on above: Performed By: #### 4 [id number] ####[facility] [address] [place], [place] [address] Abbi Choudhary M.D. [id number] WBC (Bld) [#/Vol] 7.49 10*3/uL Normal 4.50-11.00 [facility] Comment on above: Performed By: #### 4 [id number] ####[facility] [address] [place], [place] [address] Abbi Choudhary M.D. [id number] CBC panel Auto (Bld)on 01-13 Erythrocyte distribution width (RBC) [Entitic vol] 13.2 % 11.6 - 14.8 % [facility] Hematocrit (Bld) [Volume fraction] 29.6 % Low 36.0 - 46.0 % [facility] Hemoglobin (Bld) [Mass/Vol] 9.7 g/dL Low 12.0 - 16.0 g/dL [facility] Interpretation and review of laboratory results Abnormal [facility] MCH (RBC) [Entitic mass] 30.8 pg 26.0 - 34.0 pg [facility] MCHC (RBC) [Mass/Vol] 32.8 g/dL 31.0 - 37.0 g/dL [facility] MCV (RBC) [Entitic vol] 94.0 fL 80.0 - 100.0 fL [facility] Nucleated RBC (Bld) [#/Vol] 0.00 10*3/uL [facility] Nucleated RBC/100 WBC (Bld) [Ratio] 0.0 % [facility] Platelet mean volume (Bld) [Entitic vol] 9.0 fL Low 9.4 - 12.4 fL [facility] Platelets (Bld) [#/Vol] 264 10*3/uL [facility] RBC (Bld) [#/Vol] 3.15 10*6/uL Low [facility] WBC (Bld) [#/Vol] 7.49 10*3/uL [facility] CK [Catalytic activity/Vol]o n 01-14-2024 Interpretation and review of laboratory results Normal [facility] CPKon 01-14-2024 CPK 57 U/L Normal 40-170 [facility] Comment on above: Performed By: #### [id number] ####[facility] [address] [place], [place] [address] Abbi Choudhary M.D. [id number] CPK NO MBon 01-14-2024 CK [Catalytic activity/Vol] 57 U/L 40 - 170 U/L [facility] Glucose (Bld) [Mass/Vol]on 0 01-14-2024 Glucose [Mass/Vol] 194 mg/dL High 65 - 99 mg/dL [facility] Interpretation and review of laboratory results Abnormal [facility] Glucose [Mass/Vol] 77 mg/dL 65 - 99 mg/dL [facility] Interpretation and review of laboratory results Normal [facility] Glucose [Mass/Vol] 239 mg/dL High 65 - 99 mg/dL [facility] Interpretation and review of laboratory results Abnormal [facility] Glucose [Mass/Vol] 99 mg/dL 65 - 99 mg/dL [facility] Interpretation and review of laboratory results Normal [facility] POC GLUCOSE - [facility] 024 Glucose [Mass/Vol] 194 mg/dL High 65-[address] [place] [address] Comment on above: Performed By: #### 4 [id number] ####[facility] [address] [place], [place] [address] Abbi Choudhary M.D. [id number] Glucose [Mass/Vol] 77 mg/dL Normal [address] [place] [address] Comment on above: Performed By: #### 4 [id number] ####[facility] [address] [place], [place] [address] Abbi Choudhary M.D. [id number] Glucose [Mass/Vol] 239 mg/dL High [address] [place] [address] Comment on above: Performed By: #### 4 [id number] ####[facility] [address] [place], [place] [address] Abbi Choudhary M.D. [id number] Glucose [Mass/Vol] 99 mg/dL Normal [address] [place] [address] Comment on above: Performed By: #### 4 [id number] ####[facility] [address] [place], [place] [address] Abbi Choudhary M.D. [id number] RENAL FUNCTION PANELon 01-13 Albumin [Mass/Vol] 3.4 g/dL Normal 3.2-5.2 [facility] Comment on above: Order Comment: [facility] has implemented the eGFR calculation approach that does not have a coefficient for race that conforms to the NKF-ASN Task Force Recommendations. Performed By: #### 4 [id number] ####[facility] [address] [place], [place] [address] Abbi Choudhary M.D. [id number] Anion gap [Moles/Vol] 13 mmol/L Normal 10-20 [facility] Comment on above: Order Comment: [facility] has implemented the eGFR calculation approach that does not have a coefficient for race that conforms to the NKF-ASN Task Force Recommendations. Performed By: #### 4 [id number] ####[facility] [address] [place], [place] [address] Abbi Choudhary M.D. [id number] Calcium [Mass/Vol] 8.5 mg/dL Normal 8.4-10.2 [facility] Comment on above: Order Comment: [facility] has implemented the eGFR calculation approach that does not have a coefficient for race that conforms to the NKF-ASN Task Force Recommendations. Performed By: #### 4 [id number] ####[facility] [address] [place], [place] [address] Abbi Choudhary M.D. [id number] Chloride [Moles/Vol] 107 mmol/L Normal 98-108 [facility] Comment on above: Order Comment: [facility] has implemented the eGFR calculation approach that does not have a coefficient for race that conforms to the NKF-ASN Task Force Recommendations. Performed By: #### 4 [id number] ####[facility] [address] [place], [place] [address] Abbi Choudhary M.D. [id number] Creatinine [Mass/Vol] 1.59 mg/dL High 0.40-1.10 [facility] Comment on above: Order Comment: [facility] has implemented the eGFR calculation approach that does not have a coefficient for race that conforms to the NKF-ASN Task Force Recommendations. Performed By: #### 4 6449 ####[facility] [address] [place], [place] [address] Abbi Choudhary M.D. [id number] EGFR 40 mL/min/1.73 m2 Low >=60 [facility] Comment on above: Order Comment: [facility] has implemented the eGFR calculation approach that does not have a coefficient for race that conforms to the NKF-ASN Task Force Recommendations. Result Comment: Lorie mated GFR was calculated using the 2020 CKD-EPI creatinine equation. Performed By: #### 4 [id number] ####[facility] [address] [place], [place] [address] Abbi Choudhary M.D. [id number] Glucose [Mass/Vol] 149 mg/dL High 65-99 [facility] Comment on above: Order Comment: [facility] has implemented the eGFR calculation approach that does not have a coefficient for race that conforms to the NKF-ASN Task Force Recommendations. Performed By: #### 4 [id number] ####[facility] [address] [place], [place] [address] Abbi Choudhary M.D. [id number] HCO3 (Bld) [Moles/Vol] 25 mmol/L Normal 21-32 [facility] Comment on above: Order Comment: [facility] has implemented the eGFR calculation approach that does not have a coefficient for race that conforms to the NKF-ASN Task Force Recommendations. Performed By: #### 4 [id number] ####[facility] [address] [place], [place] [address] Abbi Choudhary M.D. [id number] Phosphate [Mass/Vol] 4.7 mg/dL High 2.7-4.5 [facility] Comment on above: Order Comment: [facility] has implemented the eGFR calculation approach that does not have a coefficient for race that conforms to the NKF-ASN Task Force Recommendations. Performed By: #### 4 6449 ####[facility] [address] [place], [place] [address] Abbi Choudhary M.D. [id number] Potassium [Moles/Vol] 4.1 mmol/L Normal 3.5-5.1 [facility] Comment on above: Order Comment: [facility] has implemented the eGFR calculation approach that does not have a coefficient for race that conforms to the NKF-ASN Task Force Recommendations. Performed By: #### 4 6449 ####[facility] [address] [place], [place] [address] Abbi Choudhary M.D. [id number] Sodium [Moles/Vol] 141 mmol/L Normal 135-145 [facility] Comment on above: Order Comment: [facility] has implemented the eGFR calculation approach that does not have a coefficient for race that conforms to the NKF-ASN Task Force Recommendations. Performed By: #### 4 6449 #### LAB [address] [place], [place] [address] Abbi Choudhary M.D. [id number] Urea nitrogen [Mass/Vol] 28 mg/dL High 8-25 [facility] Comment on above: Order Comment: [facility] has implemented the eGFR calculation approach that does not have a coefficient for race that conforms to the NKF-ASN Task Force Recommendations. Performed By: #### 4 [id number] ####[facility] [address] [place], [place] [address] Abbi Choudhary M.D. [id number] Urea nitrogen/Creatinine [Mass ratio] 17.6 mg/mg Normal 10.0-20.0 [facility] Comment on above: Order Comment: [facility] has implemented the eGFR calculation approach that does not have a coefficient for race that conforms to the NKF-ASN Task Force Recommendations. Performed By: #### 4 6449 ####[facility] [address] [place], [place] [address] Abbi Choudhary M.D. [id number] Renal function [address] [facility] 01-14-2024 Albumin [Mass/Vol] 3.4 g/dL 3.2 - 5.2 g/dL [facility] Anion gap [Moles/Vol] 13 mmol/L 10 - 2 0 mmol/L [facility] Calcium [Mass/Vol] 8.5 mg/dL 8.4 - 10. 2 mg/dL [facility] Chloride [Moles/Vol] 107 mmol/L 98 - 10 8 mmol/L [facility] Creatinine [Mass/Vol] 1.59 mg/dL High 0.40 - 1.10 mg/dL [facility] GFR/1.73 sq M.predicted CKD-EPI (S/P/Bld) [Vol rate/Area] 40 Low - PINF [facility] Comment on above: Estimated GFR was ca lculated using the 2020 CKD-EPI creatinine equation. Glucose [Mass/Vol] 149 mg/dL High 65 - 99 mg/dL [facility] HCO3 [Moles/Vol] 25 mmol/L 21 - 32 mmol/L [facility] Interpretation and review of laboratory results Abnormal [facility] Phosphate [Mass/Vol] 4.7 mg/dL High 2.7 - 4 .5 mg/dL [facility] Potassium [Moles/Vol] 4.1 mmol/L 3.5 - 5.1 mmol/L [facility] Sodium [Moles/Vol] 141 mmol/L 135 - 145 mmol/L [facility] Urea nitrogen [Mass/Vol] 28 mg/dL High 8 - 25 mg/dL [facility] Urea nitrogen/Creatinine [Mass ratio] 17.6 mg/mg 10.0 - 20.0 [facility] has implemented the eGFR calculation approach that does not have a coefficient for race that conforms to the NKF-ASN Task Force Recommendations. [facility] URINALYSISon 01-14-2024 BACTERIA, URINE None Seen Normal None Seen [facility] Comment on above: Order Comment: Micro scopic examination is performed on all urinalysis samples and only positive findings are reported. The test for blood on the chemical analytic portion of urinalysis may also be positive due to hemoglobinuria and myoglobinuria and if red blood cells are present they are quantified by microscopic examination. Performed By: #### 4 [id number] ####[facility] [address] [place], [place] [address] Abbi Choudhary M.D. [id number] BILIRUBIN, URINE Negative Normal Negative [facility] Comment on above: Order Comment: Micro scopic examination is performed on all urinalysis samples and only positive findings are reported. The test for blood on the chemical analytic portion of urinalysis may also be positive due to hemoglobinuria and myoglobinuria and if red blood cells are present they are quantified by microscopic examination. Performed By: #### 4 [id number] ####[facility] [address] [place], [place] [address] Abbi Choudhary M.D. [id number] BLOOD, URINE Negative Normal Negative [facility] Comment on above: Order Comment: Micro scopic examination is performed on all urinalysis samples and only positive findings are reported. The test for blood on the chemical analytic portion of urinalysis may also be positive due to hemoglobinuria and myoglobinuria and if red blood cells are present they are quantified by microscopic examination. Performed By: #### 4 [id number] ####[facility] [address] [place] [address] Abbi Choudhary M.D. [id number] Clarity (U) Clear Normal Clear [facility] Comment on above: Order Comment: Micro scopic examination is performed on all urinalysis samples and only positive findings are reported. The test for blood on the chemical analytic portion of urinalysis may also be positive due to hemoglobinuria and myoglobinuria and if red blood cells are present they are quantified by microscopic examination. Performed By: #### 4 [id number] ####[facility] [address] [place] [address] Abbi Choudhary M.D. [id number] Color (U) Yellow Normal Colorless, Yellow [facility] Comment on above: Order Comment: Micro scopic examination is performed on all urinalysis samples and only positive findings are reported. The test for blood on the chemical analytic portion of urinalysis may also be positive due to hemoglobinuria and myoglobinuria and if red blood cells are present they are quantified by microscopic examination. Performed By: #### 4 [id number] ####[facility] [address] [place] [address] Abbi Choudhary M.D. [id number] Glucose Ql (U) 150 mg/dL Abnormal Negative [facility] Comment on above: Order Comment: Micro scopic examination is performed on all urinalysis samples and only positive findings are reported. The test for blood on the chemical analytic portion of urinalysis may also be positive due to hemoglobinuria and myoglobinuria and if red blood cells are present they are quantified by microscopic examination. Performed By: #### 4 [id number] ####[facility] [address] [place] [address] Abbi Choudhary M.D. [id number] Ketones Ql (U) Negative Normal Negative [facility] Comment on above: Order Comment: Micro scopic examination is performed on all urinalysis samples and only positive findings are reported. The test for blood on the chemical analytic portion of urinalysis may also be positive due to hemoglobinuria and myoglobinuria and if red blood cells are present they are quantified by microscopic examination. Performed By: #### 4 [id number] #### LAB [address] [place] [address] Abbi Choudhary M.D. [id number] Leukocyte esterase Test strip Ql (U) Negative Normal Negative [facility] Comment on above: Order Comment: Micro scopic examination is performed on all urinalysis samples and only positive findings are reported. The test for blood on the chemical analytic portion of urinalysis may also be positive due to hemoglobinuria and myoglobinuria and if red blood cells are present they are quantified by microscopic examination. Performed By: #### 4 [id number] ####[facility] [address] [place] [address] Abbi Choudhary M.D. [id number] MUCUS, URINE Rare Normal None Seen, Rare [facility] Comment on above: Order Comment: Micro scopic examination is performed on all urinalysis samples and only positive findings are reported. The test for blood on the chemical analytic portion of urinalysis may also be positive due to hemoglobinuria and myoglobinuria and if red blood cells are present they are quantified by microscopic examination. Performed By: #### 4 [id number] ####[facility] [address] [place] [address] Abbi Choudhary M.D. [id number] NITRITE, URINE Negative Normal Negative [facility] Comment on above: Order Comment: Micro scopic examination is performed on all urinalysis samples and only positive findings are reported. The test for blood on the chemical analytic portion of urinalysis may also be positive due to hemoglobinuria and myoglobinuria and if red blood cells are present they are quantified by microscopic examination. Performed By: #### 4 [id number] ####[facility] [address] [place] [address] Abbi Choudhary M.D. [id number] pH (U) 5.0 [pH] Normal 5.0-7.0 [facility] Comment on above: Order Comment: Micro scopic examination is performed on all urinalysis samples and only positive findings are reported. The test for blood on the chemical analytic portion of urinalysis may also be positive due to hemoglobinuria and myoglobinuria and if red blood cells are present they are quantified by microscopic examination. Performed By: #### 4 [id number] ####[facility] [address] [place] [address] Abbi Choudhary M.D. [id number] Protein (U) [Mass/Vol] 100 mg/dL Abnormal Negative [facility] Comment on above: Order Comment: Micro scopic examination is performed on all urinalysis samples and only positive findings are reported. The test for blood on the chemical analytic portion of urinalysis may also be positive due to hemoglobinuria and myoglobinuria and if red blood cells are present they are quantified by microscopic examination. Performed By: #### 4 [id number] ####[facility] [address] [place] [address] Abbi Choudhary M.D. [id number] RBC LM.HPF (Urine sed) [#/Area] 1 /[HPF] Normal 0-3 [facility] Comment on above: Order Comment: Micro scopic examination is performed on all urinalysis samples and only positive findings are reported. The test for blood on the chemical analytic portion of urinalysis may also be positive due to hemoglobinuria and myoglobinuria and if red blood cells are present they are quantified by microscopic examination. Performed By: #### 4 [id number] ####[facility] [address] [place] [address] Abbi Choudhary M.D. [id number] Specific gravity (U) [Rel density] 1.017 Normal 1.005-1.025 [facility] Comment on above: Order Comment: Micro scopic examination is performed on all urinalysis samples and only positive findings are reported. The test for blood on the chemical analytic portion of urinalysis may also be positive due to hemoglobinuria and myoglobinuria and if red blood cells are present they are quantified by microscopic examination. Performed By: #### 4 [id number] ####[facility] [address] [place], [place] [address] Abbi Choudhary M.D. [id number] SQUAMOUS EPITHELIAL < Normal 0-4 [facility] Comment on above: Order Comment: Micro scopic examination is performed on all urinalysis samples and only positive findings are reported. The test for blood on the chemical analytic portion of urinalysis may also be positive due to hemoglobinuria and myoglobinuria and if red blood cells are present they are quantified by microscopic examination. Performed By: #### 4 [id number] ####[facility] [address] [place], [place] [address] Abbi Choudhary M.D. [id number] UROBILINOGEN, URINE <2.0 Normal <2.0 [facility] Comment on above: Order Comment: Micro scopic examination is performed on all urinalysis samples and only positive findings are reported. The test for blood on the chemical analytic portion of urinalysis may also be positive due to hemoglobinuria and myoglobinuria and if red blood cells are present they are quantified by microscopic examination. Performed By: #### 4 [id number] ####[facility] [address] [place], [place] [address] Abbi Choudhary M.D. [id number] WBC LM.HPF (Urine sed) [#/Area] 1 /[HPF] Normal 0-5 [facility] Comment on above: Order Comment: Micro scopic examination is performed on all urinalysis samples and only positive findings are reported. The test for blood on the chemical analytic portion of urinalysis may also be positive due to hemoglobinuria and myoglobinuria and if red blood cells are present they are quantified by microscopic examination. Performed By: #### 4 [id number] ####[facility] [address] [place], [place] [address] Abbi Choudhary M.D. [id number] UrinalysisOrdered By: Jessie Bae on 01-14-2024 Bacteria Auto Ql (U) None Seen None Se en /hpf [facility] Bilirubin Ql (U) Negative Negative [facility] Clarity Refractometry automated (U) Clear Clear [facility] Color (U) Yellow Colorless, Yellow [facility] Epithelial cells.squamous Auto (Urine sed) [#/Area] [facility] Glucose Auto test strip (U) [Mass/Vol] 150 mg/dL Abnormal Negative [facility] Hemoglobin Auto test strip Ql (U) Negative Negative [facility] Interpretation and review of laboratory results Abnormal [facility] Ketones (U) [Mass/Vol] Negative Negative mg/dL [facility] Leukocyte esterase Auto test strip Ql (U) Negative Negative [facility] Mucus Auto (Urine sed) [#/Area] Rare None Seen, Rare /lpf [facility] Nitrite Auto test strip Ql (U) Negative Negative [facility] pH (U) 5.0 [pH] 5.0 - 7.0 [facility] Protein (U) [Mass/Vol] 100 mg/dL Abnormal Negative [facility] RBC Auto (Urine sed) [#/Area] 1 [facility] Specific gravity (U) [Rel density] 1.017 1.005 - 1.025 [facility] Urobilinogen (U) [Mass/Vol] mg/dL NINF - 2.0 mg/dL [facility] WBC Auto (Urine sed) [#/Area] 1 [facility] Microscopic examinat ion is performed on all urinalysis samples and only positive findings are reported. The test for blood on the chemical analytic portion of urinalysis may also be positive due to hemoglobinuria and myoglobinuria and if red blood cells are present they are quantified by microscopic examination. [facility] CBCon 01-13-2024 AUTO NRBC 0.0 % Normal [facility] Comment on above: Performed By: #### [id number] #### LAB [address] [place], [place] [address] Abbi Choudhary M.D. [id number] AUTO NRBC ABS COUNT 0.00 K/mcL Normal 0.00-0.00 [facility] Comment on above: Performed By: #### 4 [id number] ####[facility] [address] [place], [place] [address] Abbi Choudhary M.D. [id number] Erythrocyte distribution width (RBC) [Ratio] 13.1 % Normal 11.6-14.8 [facility] Comment on above: Performed By: #### 4 [id number] #### LAB [address] [place], [place] [address] Abbi Choudhary M.D. [id number] Hematocrit (Bld) [Volume fraction] 27.5 % Low 36.0-46.0 [facility] Comment on above: Performed By: #### 4 [id number] ####[facility] [address] [place], [place] [address] Abbi Choudhary M.D. [id number] Hemoglobin (Bld) [Mass/Vol] 9.3 g/dL Low 12.0-16.0 [facility] Comment on above: Performed By: #### 4 [id number] ####[facility] [address] [place], [place] [address] Abbi Choudhary M.D. [id number] MCH (RBC) [Entitic mass] 31.1 pg Normal 26.0-34.0 [facility] Comment on above: Performed By: #### 4 [id number] ####[facility] [address] [place], [place] [address] Abbi Choudhary M.D. [id number] MCV (RBC) [Entitic vol] 92.0 fL Normal 80.0-100.0 [facility] Comment on above: Performed By: #### 4 [id number] ####[facility] [address] [place], [place] [address] Abbi Choudhary M.D. [id number] MEAN CORPUSCULAR HEMOGLOBIN CONC 33.8 g/dL Normal 31.0-37.0 [facility] Comment on above: Performed By: #### 4 [id number] ####[facility] [address] [place], [place] [address] Abbi Choudhary M.D. [id number] Platelet mean volume (Bld) [Entitic vol] 8.6 fL Low 9.4-12.4 [facility] Comment on above: Performed By: #### 4 [id number] ####[facility] [address] [place], [place] [address] Abbi Choudhary M.D. [id number] Platelets (Bld) [#/Vol] 238 10*3/uL Normal 150-400 [facility] Comment on above: Performed By: #### 4 [id number] ####[facility] [address] [place], [place] [address] Abbi Choudhary M.D. [id number] RBC (Bld) [#/Vol] 2.99 10*6/uL Low 4.00-5.20 [facility] Comment on above: Performed By: #### 4 [id number] ####[facility] [address] [place], [place] [address] Abbi Choudhary M.D. [id number] WBC (Bld) [#/Vol] 7.09 10*3/uL Normal 4.50-11.00 [facility] Comment on above: Performed By: #### 4 [id number] ####[facility] [address] [place], [place] [address] Abbi Choudhary M.D. [id number] CBC panel Auto (Bld)on 01-12 Erythrocyte distribution width (RBC) [Entitic vol] 13.1 % 11.6 - 14.8 % [facility] Hematocrit (Bld) [Volume fraction] 27.5 % Low 36.0 - 46.0 % [facility] Hemoglobin (Bld) [Mass/Vol] 9.3 g/dL Low 12.0 - 16.0 g/dL [facility] Interpretation and review of laboratory results Abnormal [facility] MCH (RBC) [Entitic mass] 31.1 pg 26.0 - 34.0 pg [facility] MCHC (RBC) [Mass/Vol] 33.8 g/dL 31.0 - 37.0 g/dL [facility] MCV (RBC) [Entitic vol] 92.0 fL 80.0 - 100.0 fL [facility] Nucleated RBC (Bld) [#/Vol] 0.00 10*3/uL [facility] Nucleated RBC/100 WBC (Bld) [Ratio] 0.0 % [facility] Platelet mean volume (Bld) [Entitic vol] 8.6 fL Low 9.4 - 12.4 fL [facility] Platelets (Bld) [#/Vol] 238 10*3/uL [facility] RBC (Bld) [#/Vol] 2.99 10*6/uL Low [facility] WBC (Bld) [#/Vol] 7.09 10*3/uL [facility] CONSULTon 01-13-2024 CONSULT Normal [facility] CT FOOT LEFT WITHOUT CONTRAS Ton 01-13-2024 CT FOOT LEFT WITHOUT CONTRAST Normal [facility] Comment on above: Order Comment: Injur y/Trauma [...] as described above. TROY/xochitl Workstation ID: [id number] [employer] EXAMINATION: CT FOOT LEFT WITHOUT CONTRAST HISTORY: [...] The hardware is incompletely included on the [id number]-[id number] for this study. There is cystic change [...] CT for evaluation of the soft tissues. [facility] Preston Rajan MD - 01/13/2024 EXAMINATION: [...] The hardware is incompletely included on the [id number] for this study. There is cystic change [...] as described above. TROY/xochitl Workstation ID: [id number] [facility] Radiology Study observation (narrative) [facility] CT Foot - left WO contrastOr dered By: Preston Rajan on 01-13-2024 [facility] Work Phone: ECG 12 Leadon 01-13-2024 Atrial Rate 97 BPM [facility] P [place] 55 degrees [facility] P-R Interval 190 ms [facility] Q-T Interval 346 ms [facility] QRS Duration 84 ms [facility] QTC Calculation (Bezet) 439 ms [facility] R [place] 18 degrees [facility] T [place] 27 degrees [facility] Ventricular Rate [address] [facility] Normal sinus rhythm Possible Left atrial enlargement Confirmed by Monique Pillai MD ([id number]) on 01/13/2024 8:52:41 AM [facility] Glucose (Bld) [Mass/Vol]on 0 01-13-2024 Glucose [Mass/Vol] 177 mg/dL High 65 - 99 mg/dL [facility] Interpretation and review of laboratory results Abnormal [facility] Glucose [Mass/Vol] 119 mg/dL High 65 - 99 mg/dL [facility] Interpretation and review of laboratory results Abnormal [facility] Glucose [Mass/Vol] 116 mg/dL High 65 - 99 mg/dL [facility] Interpretation and review of laboratory results Abnormal [facility] Glucose [Mass/Vol] 103 mg/dL High 65 - 99 mg/dL [facility] Interpretation and review of laboratory results Abnormal [facility] Glucose [Mass/Vol] 122 mg/dL High 65 - 99 mg/dL [facility] Interpretation and review of laboratory results Abnormal [facility] POC GLUCOSE - RALSon 024 Glucose [Mass/Vol] 177 mg/dL High [address] [place] [address] Comment on above: Performed By: #### 4 [id number] ####[facility] [address] [place], [place] [address] Abbi Choudhary M.D. [id number] Glucose [Mass/Vol] 119 mg/dL High [address] [place] [address] Comment on above: Performed By: #### 4 [id number] ####[facility] [address] [place], [place] [address] Abbi Choudhary M.D. [id number] Glucose [Mass/Vol] 116 mg/dL [address] Comment on above: Performed By: #### 4 [id number] ####[facility] [address] [place], [place] [address] Abbi Chuodhary M.D. [id number] Glucose [Mass/Vol] 103 mg/dL [address] Comment on above: Performed By: #### 4 [id number] ####[facility] [address] [place], [place] [address] Abbi Choudhary M.D. [id number] Glucose [Mass/Vol] 122 mg/dL [address] Comment on above: Performed By: #### 4 [id number] ####[facility] [address] [place], [place] [address] Abbi Choudhary M.D. [id number] RENAL FUNCTION PANEL 01-12 Albumin [Mass/Vol] 3.1 g/dL Low 3.2-5.2 [facility] Comment on above: Order Comment: [facility] has implemented the eGFR calculation approach that does not have a coefficient for race that conforms to the NKF-ASN Task Force Recommendations. Performed By: #### 4 [id number] ####[facility] [address] [place], [place] [address]Alisia Choudhary M.D. [id number] Anion gap [Moles/Vol] 16 mmol/L Normal 10-20 [facility] Comment on above: Order Comment: [facility] has implemented the eGFR calculation approach that does not have a coefficient for race that conforms to the NKF-ASN Task Force Recommendations. Performed By: #### 4 [id number] ####[facility] [address] [place], [place] [address] Abbi Choudhary M.D. [id number] Calcium [Mass/Vol] 8.4 mg/dL Normal 8.4-10.2 [facility] Comment on above: Order Comment: [facility] has implemented the eGFR calculation approach that does not have a coefficient for race that conforms to the NKF-ASN Task Force Recommendations. Performed By: #### 4 [id number] ####[facility] [address] [place], [place] [address] Abbi Choudhary M.D. [id number] Chloride [Moles/Vol] 105 mmol/L Normal 98-108 [facility] Comment on above: Order Comment: [facility] has implemented the eGFR calculation approach that does not have a coefficient for race that conforms to the NKF-ASN Task Force Recommendations. Performed By: #### 4 [id number] ####[facility] [address] [place], [place] [address] Abbi Choudhary M.D. [id number] Creatinine [Mass/Vol] 1.32 mg/dL High 0.40-1.10 [facility] Comment on above: Order Comment: [facility] has implemented the eGFR calculation approach that does not have a coefficient for race that conforms to the NKF-ASN Task Force Recommendations. Performed By: #### 4 [id number] ####[facility] [address] [place], [place] [address] Abbi Choudhary M.D. [id number] EGFR 51 mL/min/1.73 m2 Low >=60 [facility] Comment on above: Order Comment: [facility] has implemented the eGFR calculation approach that does not have a coefficient for race that conforms to the NKF-ASN Task Force Recommendations. Result Comment: Lorie mated GFR was calculated using the 2020 CKD-EPI creatinine equation. Performed By: #### 4 [id number] ####[facility] [address] [place], [place] [address] Abbi Choudhary M.D. [id number] Glucose [Mass/Vol] 157 mg/dL High 65-99 [facility] Comment on above: Order Comment: [facility] has implemented the eGFR calculation approach that does not have a coefficient for race that conforms to the NKF-ASN Task Force Recommendations. Performed By: #### 4 [id number] ####[facility] [address] [place], [place] [address] Abbi Choudhary M.D. [id number] HCO3 (Bld) [Moles/Vol] 21 mmol/L Normal 21-32 [facility] Comment on above: Order Comment: [facility] has implemented the eGFR calculation approach that does not have a coefficient for race that conforms to the NKF-ASN Task Force Recommendations. Performed By: #### 4 [id number] ####[facility] [address] [place], [place] [address] Abbi Choudhary M.D. [id number] Phosphate [Mass/Vol] 3.7 mg/dL Normal 2.7-4.5 [facility] Comment on above: Order Comment: [facility] has implemented the eGFR calculation approach that does not have a coefficient for race that conforms to the NKF-ASN Task Force Recommendations. Performed By: #### 4 [id number] ####[facility] [address] [place], [place] [address] Abbi Choudhary M.D. [id number] Potassium [Moles/Vol] 4.1 mmol/L Normal 3.5-5.1 [facility] Comment on above: Order Comment: [facility] has implemented the eGFR calculation approach that does not have a coefficient for race that conforms to the NKF-ASN Task Force Recommendations. Result Comment: Slig htly Hemolyzed Performed By: #### 4 [id number] ####[facility] [address] [place], [place] [address] Abbi Choudhary M.D. [id number] Sodium [Moles/Vol] 138 mmol/L Normal 135-145 [facility] Comment on above: Order Comment: [facility] has implemented the eGFR calculation approach that does not have a coefficient for race that conforms to the NKF-ASN Task Force Recommendations. Performed By: #### 4 [id number] ####[facility] [address] [place], [place] [address] Abbi Choudhary M.D. [id number] Urea nitrogen [Mass/Vol] 27 mg/dL High 8-25 [facility] Comment on above: Order Comment: [facility] has implemented the eGFR calculation approach that does not have a coefficient for race that conforms to the NKF-ASN Task Force Recommendations. Performed By: #### 4 [id number] ####[facility] [address] [place], [place] [address] Abbi Choudhary M.D. [id number] Urea nitrogen/Creatinine [Mass ratio] 20.5 mg/mg High 10.0-20.0 [facility] Comment on above: Order Comment: [facility] has implemented the eGFR calculation approach that does not have a coefficient for race that conforms to the NKF-ASN Task Force Recommendations. Performed By: #### 4 [id number] ####[facility] [address] [place], [place] [address] Abbi Choudhary M.D. [id number] Renal function 2000 panelOrd ered By: Alberta Vo on 01-13-2024 Albumin [Mass/Vol] 3.1 g/dL Low 3.2 - 5.2 g/dL [facility] Anion gap [Moles/Vol] 16 mmol/L 10 - 2 0 mmol/L [facility] Calcium [Mass/Vol] 8.4 mg/dL 8.4 - 10. 2 mg/dL [facility] Chloride [Moles/Vol] 105 mmol/L 98 - 10 8 mmol/L [facility] Creatinine [Mass/Vol] 1.32 mg/dL High 0.40 - 1.10 mg/dL [facility] GFR/1.73 sq M.predicted CKD-EPI (S/P/Bld) [Vol rate/Area] 51 Low - PINF [facility] Comment on above: Estimated GFR was ca lculated using the 2020 CKD-EPI creatinine equation. Glucose [Mass/Vol] 157 mg/dL High 65 - 99 mg/dL [facility] HCO3 [Moles/Vol] 21 mmol/L 21 - 32 mmol/L [facility] Interpretation and review of laboratory results Abnormal [facility] Phosphate [Mass/Vol] 3.7 mg/dL 2.7 - 4 .5 mg/dL [facility] Potassium [Moles/Vol] 4.1 mmol/L 3.5 - 5.1 mmol/L [facility] Comment on above: Slightly Hemolyzed Sodium [Moles/Vol] 138 mmol/L 135 - 145 mmol/L [facility] Urea nitrogen [Mass/Vol] 27 mg/dL High 8 - 25 mg/dL [facility] Urea nitrogen/Creatinine [Mass ratio] 20.5 mg/mg High 10.0 - 20.0 [facility] has implemented the eGFR calculation approach that does not have a coefficient for race that conforms to the NKF-ASN Task Force Recommendations. [facility] BASIC METABOLIC PANELon 08-2 -2023 Anion gap [Moles/Vol] 14 mmol/L Normal 10-20 [facility] Comment on above: Order Comment: [facility] has implemented the eGFR calculation approach that does not have a coefficient for race that conforms to the NKF-ASN Task Force Recommendations. Performed By: #### 4 [id number] ####[facility] [address] [place], [place] [address] Abbi Choudhary M.D. [id number] Calcium [Mass/Vol] 9.0 mg/dL Normal 8.4-10.2 [facility] Comment on above: Order Comment: [facility] has implemented the eGFR calculation approach that does not have a coefficient for race that conforms to the NKF-ASN Task Force Recommendations. Performed By: #### 4 [id number] ####[facility] [address] [place], [place] [address] Abbi Choudhary M.D. [id number] Chloride [Moles/Vol] 104 mmol/L Normal 98-108 [facility] Comment on above: Order Comment: [facility] has implemented the eGFR calculation approach that does not have a coefficient for race that conforms to the NKF-ASN Task Force Recommendations. Performed By: #### 4 [id number] ####[facility] [address] [place], [place] [address] Abbi Choudhary M.D. [id number] Creatinine [Mass/Vol] 1.06 mg/dL Normal 0.40-1.10 [facility] Comment on above: Order Comment: [facility] has implemented the eGFR calculation approach that does not have a coefficient for race that conforms to the NKF-ASN Task Force Recommendations. Performed By: #### 4 [id number] ####[facility] [address] [place], [place] [address] Abbi Choudhary M.D. [id number] EGFR 66 mL/min/1.73 m2 Normal >=60 [facility] Comment on above: Order Comment: [facility] has implemented the eGFR calculation approach that does not have a coefficient for race that conforms to the NKF-ASN Task Force Recommendations. Result Comment: Lorie mated GFR was calculated using the 2020 CKD-EPI creatinine equation. Performed By: #### 4 [id number] ####[facility] [address] [place] [address] Abbi Choudhary M.D. [id number] Glucose [Mass/Vol] 109 mg/dL High 65-99 [facility] Comment on above: Order Comment: [facility] has implemented the eGFR calculation approach that does not have a coefficient for race that conforms to the NKF-ASN Task Force Recommendations. Performed By: #### 4 [id number] ####[facility] [address] [place], [place] [address] Abbi Choudhary M.D. [id number] HCO3 (Bld) [Moles/Vol] 26 mmol/L Normal 21-32 [facility] Comment on above: Order Comment: [facility] has implemented the eGFR calculation approach that does not have a coefficient for race that conforms to the NKF-ASN Task Force Recommendations. Performed By: #### 4 [id number] ####[facility] [address] [place], [place] [address] Abbi Choudhary M.D. [id number] Potassium [Moles/Vol] 4.1 mmol/L Normal 3.5-5.1 [facility] Comment on above: Order Comment: [facility] has implemented the eGFR calculation approach that does not have a coefficient for race that conforms to the NKF-ASN Task Force Recommendations. Performed By: #### 4 [id number] ####[facility] [address] [place], [place] [address] Abbi Choudhary M.D. [id number] Sodium [Moles/Vol] 140 mmol/L Normal 135-145 [facility] Comment on above: Order Comment: [facility] has implemented the eGFR calculation approach that does not have a coefficient for race that conforms to the NKF-ASN Task Force Recommendations. Performed By: #### 4 [id number] ####[facility] [address] [place], [place] [address] Abbi Choudhary M.D. [id number] Urea nitrogen [Mass/Vol] 24 mg/dL Normal 8-25 [facility] Comment on above: Order Comment: [facility] has implemented the eGFR calculation approach that does not have a coefficient for race that conforms to the NKF-ASN Task Force Recommendations. Performed By: #### 4 [id number] ####[facility] [address] [place], [place] [address] Abbi Choudhary M.D. [id number] Urea nitrogen/Creatinine [Mass ratio] 22.6 mg/mg High 10.0-20.0 [facility] Comment on above: Order Comment: [facility] has implemented the eGFR calculation approach that does not have a coefficient for race that conforms to the NKF-ASN Task Force Recommendations. Performed By: #### 4 [id number] ####[facility] [address] [place], [place] [address] Abbi Choudhary M.D. [id number] Basic metabolic 2000 panelon 01-12-2024 Anion gap [Moles/Vol] 14 mmol/L 10 - 2 0 mmol/L [facility] Calcium [Mass/Vol] 9.0 mg/dL 8.4 - 10. 2 mg/dL [facility] Chloride [Moles/Vol] 104 mmol/L 98 - 10 8 mmol/L [facility] Creatinine [Mass/Vol] 1.06 mg/dL 0.40 - 1.10 mg/dL [facility] GFR/1.73 sq M.predicted CKD-EPI (S/P/Bld) [Vol rate/Area] 66 - PINF [facility] Comment on above: Estimated GFR was ca lculated using the 2020 CKD-EPI creatinine equation. Glucose [Mass/Vol] 109 mg/dL High 65 - 99 mg/dL [facility] HCO3 [Moles/Vol] 26 mmol/L 21 - 32 mmol/L [facility] Interpretation and review of laboratory results Abnormal [facility] Potassium [Moles/Vol] 4.1 mmol/L 3.5 - 5.1 mmol/L [facility] Sodium [Moles/Vol] 140 mmol/L 135 - 145 mmol/L [facility] Urea nitrogen [Mass/Vol] 24 mg/dL 8 - 25 mg/dL [facility] Urea nitrogen/Creatinine [Mass ratio] 22.6 mg/mg High 10.0 - 20.0 [facility] has implemented the eGFR calculation approach that does not have a coefficient for race that conforms to the NKF-ASN Task Force Recommendations. [facility] CBC Auto Differentialon 12-24 Basophils (Bld) [#/Vol] 0.06 10*3/uL [facility] Basophils/100 WBC (Bld) 0.6 % [facility] Eosinophils (Bld) [#/Vol] 0.63 10*3/uL High [facility] Eosinophils/100 WBC (Bld) 6.5 % [facility] Erythrocyte distribution width (RBC) [Entitic vol] 12.9 % 11.6 - 14.8 % [facility] Hematocrit (Bld) [Volume fraction] 34.6 % Low 36.0 - 46.0 % [facility] Hemoglobin (Bld) [Mass/Vol] 11.7 g/dL Low 12.0 - 16.0 g/dL [facility] Immature granulocytes (Bld) [#/Vol] 0.05 10*3/uL [facility] Immature granulocytes/100 WBC (Bld) 0.50 % [facility] Comment on above: The IG parameter is the percentage of metamyelocytes, myelocytes and promyelocytes. An immature granulocyte count (IG) of 1% or more suggests the possibility of infection, an IG count of 3% is very likely related to an infection. Interpretation and review of laboratory results Abnormal [facility] Lymphocytes (Bld) [#/Vol] 1.77 10*3/uL [facility] Lymphocytes/100 WBC (Bld) 18.3 % [facility] MCH (RBC) [Entitic mass] 31.0 pg 26.0 - 34.0 pg [facility] MCHC (RBC) [Mass/Vol] 33.8 g/dL 31.0 - 37.0 g/dL [facility] MCV (RBC) [Entitic vol] 91.5 fL 80.0 - 100.0 fL [facility] Monocytes (Bld) [#/Vol] 0.47 10*3/uL [facility] Monocytes/100 WBC (Bld) 4.9 % [facility] Neutrophils (Bld) [#/Vol] 6.70 10*3/uL [facility] Neutrophils/100 WBC (Bld) 69.2 % [facility] Nucleated RBC (Bld) [#/Vol] 0.00 10*3/uL [facility] Nucleated RBC/100 WBC (Bld) [Ratio] 0.0 % [facility] Platelet mean volume (Bld) [Entitic vol] 9.1 fL Low 9.4 - 12.4 fL [facility] Platelets (Bld) [#/Vol] 291 10*3/uL [facility] RBC (Bld) [#/Vol] 3.78 10*6/uL Low [facility] WBC (Bld) [#/Vol] 9.68 10*3/uL [facility] CBC WITH AUTO DIFFERENTIALon 01-12-2024 AUTO NRBC 0.0 % Normal [facility] Comment on above: Performed By: #### L [id number] ####[facility] [address] [place] [address] Abbi Choudhary M.D. [id number] AUTO NRBC ABS COUNT 0.00 K/mcL Normal 0.00-0.00 [facility] Comment on above: Performed By: #### L [id number] ####[facility] [address] [place], [place] [address] Abbi Choudhary M.D. [id number] BASOPHILS ABSOLUTE COUNT 0.06 K/mcL Normal 0.00-0.30 [facility] Comment on above: Performed By: #### L [id number] ####[facility] [address] [place], [place] [address] Abbi Choudhary M.D. [id number] Basophils/100 WBC (Bld) 0.6 % Normal [facility] Comment on above: Performed By: #### L [id number] ####[facility] [address] [place] [address] Abbi Choudhary M.D. [id number] Eosinophils (Bld) [#/Vol] 0.63 10*3/uL High 0.00-0.50 [facility] Comment on above: Performed By: #### L [id number] ####[facility] [address] [place] [address] Abbi Choudhary M.D. [id number] Eosinophils/100 WBC (Bld) 6.5 % Normal [facility] Comment on above: Performed By: #### L [id number] ####[facility] [address] [place] [address] Abbi Choudhary M.D. [id number] Erythrocyte distribution width (RBC) [Ratio] 12.9 % Normal 11.6-14.8 [facility] Comment on above: Performed By: #### L [id number] ####[facility] [address] [address] Abbi Choudhary M.D. [id number] Hematocrit (Bld) [Volume fraction] 34.6 % Low 36.0-46.0 [facility] Comment on above: Performed By: #### L [id number] ####[facility] [address] [address] Abbi Choudhary M.D. [id number] Hemoglobin (Bld) [Mass/Vol] 11.7 g/dL Low 12.0-16.0 [facility] Comment on above: Performed By: #### L [id number] ####[facility] [address] [address] Abbi Choudhary M.D. [id number] IG ABSOLUTE 0.05 K/mcL Normal 0.00-0.30 [facility] Comment on above: Performed By: #### L [id number] ####[facility] [address] [address] Abbi Choudhary M.D. [id number] IG PERCENT 0.50 % Normal [facility] Comment on above: Result Comment: The IG parameter is the percentage of metamyelocytes, myelocytes and promyelocytes. An immature granulocyte count (IG) of 1% or more suggests the possibility of infection, an IG count of 3% is very likely related to an infection. Performed By: #### L [id number] ####[facility] [address] [address] Abbi Choudhary M.D. [id number] Lymphocytes (Bld) [#/Vol] 1.77 10*3/uL Normal 0.90-4.00 [facility] Comment on above: Performed By: #### L [id number] ####[facility] [address] [address] Abbi Choudhary M.D. [id number] Lymphocytes/100 WBC (Bld) 18.3 % Normal [facility] Comment on above: Performed By: #### L [id number] ####[facility] [address] [address] Abbi Choudhary M.D. [id number] MCH (RBC) [Entitic mass] 31.0 pg Normal 26.0-34.0 [facility] Comment on above: Performed By: #### L [id number] ####[facility] [address] [address] Abbi Choudhary M.D. [id number] MCV (RBC) [Entitic vol] 91.5 fL Normal 80.0-100.0 [facility] Comment on above: Performed By: #### L [id number] ####[facility] [address] [address] Abbi Choudhary M.D. [id number] MEAN CORPUSCULAR HEMOGLOBIN CONC 33.8 g/dL Normal 31.0-37.0 [facility] Comment on above: Performed By: #### L [id number] ####[facility] [address] [address] Abbi Choudhary M.D. [id number] Monocytes (Bld) [#/Vol] 0.47 10*3/uL Normal 0.30-0.90 [facility] Comment on above: Performed By: #### L [id number] ####[facility] [address] [place], [place] [address] Abbi Choudhary M.D. [id number] Monocytes/100 WBC (Bld) 4.9 % Normal [facility] Comment on above: Performed By: #### L [id number] ####[facility] [address] [place], [place] [address] Abbi Choudhary M.D. [id number] NEUTROPHILS ABSOLUTE COUNT 6.70 K/mcL Normal 1.70-7.00 [facility] Comment on above: Performed By: #### L [id number] ####[facility] [address] [place], [place] [address] Abbi Choudhary M.D. [id number] Neutrophils/100 WBC (Bld) 69.2 % Normal [facility] Comment on above: Performed By: #### L [id number] ####[facility] [address] [place], [place] [address] Abbi Choudhary M.D. [id number] Platelet mean volume (Bld) [Entitic vol] 9.1 fL Low 9.4-12.4 [facility] Comment on above: Performed By: #### L [id number] ####[facility] [address] [place], [place] [address] Abbi Choudhary M.D. [id number] Platelets (Bld) [#/Vol] 291 10*3/uL Normal 150-400 [facility] Comment on above: Performed By: #### L [id number] ####[facility] [address] [place], [place] [address] Abbi Choudhary M.D. [id number] RBC (Bld) [#/Vol] 3.78 10*6/uL Low 4.00-5.20 [facility] Comment on above: Performed By: #### L [id number] ####[facility] [address] [place], [place] [address] Abbi Choudhary M.D. [id number] WBC (Bld) [#/Vol] 9.68 10*3/uL Normal 4.50-11.00 [facility] Comment on above: Performed By: #### L [id number] ####[facility] [address] [place], [place] [address] Abbi Choudhary M.D. [id number] CRP [Mass/Vol]on 01-12-2024 Interpretation and review of laboratory results Normal [facility] CRP, INFLAMMATIONon 01-12-20 CRP [Mass/Vol] 8.2 mg/L Normal 0.0-10.0 [facility] Comment on above: Performed By: #### 4 5334 ####[facility] [address] [place], [place] [address] Abbi Choudhary M.D. [id number] CRP, Inflammationon 01-12-20 CRP [Mass/Vol] 8.2 mg/L 0.0 - 10.0 mg/L [facility] ED Prov Noteon 01-12-2024 ED Prov Note Normal [facility] ESR Westergren method (Bld) [Velocity]on 01-12-2024 ESR (Bld) [Velocity] 40 mm/h [facility] Interpretation and review of laboratory results Abnormal [facility] Glucose (Bld) [Mass/Vol]on 0 01-12-2024 Glucose [Mass/Vol] 92 mg/dL 65 - 99 mg/dL [facility] Interpretation and review of laboratory results Normal [facility] Gold Topon 01-12-2024 Extra Tube Hold for add-ons. [facility] Comment on above: Auto resulted. [facility] H AND Paulino 01-12-2024 H AND P Normal [facility] HEMOGLOBIN A1Con 01-12-2024 Glucose [Mass/Vol] 220 mg/dL High 74-114 [facility] Comment on above: Performed By: #### 4 8202 ####[facility] [address] [place], [place] [address] Abbi Choudhary M.D. [id number] HbA1c (Bld) [Mass fraction] 9.3 % [facility] 4.2-5.6 [facility] Comment on above: Performed By: #### 4 8202 ####[facility] [address] [place], [place] [address] Abbi Choudhary M.D. [id number] HbA1c (Bld) [Mass fraction]o n 01-12-2024 Average glucose Estimated from glycated hemoglobin (Bld) [Mass/Vol] 220 mg/dL High 74 - 114 mg/dL [facility] Interpretation and review of laboratory results Abnormal [facility] Hemoglobin A1con 01-12-2024 HbA1c (Bld) [Mass fraction] 9.3 % High 4.2 - 5.6 % [facility] No Panel Informationon 01-11 Extra Tube Hold for add-ons. [facility] Comment on above: Auto resulted. [facility] POC GLUCOSE - RALSon 024 Glucose [Mass/Vol] 92 mg/dL Normal 65-99 [facility] Comment on above: Performed By: #### 4 6932 ####[facility] [address] [place], [place] [address] Abbi Choudhary M.D. [id number] SEDIMENTATION RATEon 024 SEDIMENTATION RATE, ERYTHROCYTE 40 mm/hr High 0-20 [facility] Comment on above: Performed By: #### 4 6477 ####[facility] [address] [place], [place] [address] Abbi Choudhary M.D. [id number] XR FOOT LEFT 3+ VIEWS (STAND ILIA)on 01-12-2024 XR FOOT LEFT 3+ VIEWS (STANDARD) Normal [facility] Comment on above: Order Comment: Injur y/Trauma [...] which is more sensitive. Workstation ID: [id number] [employer] EXAMINATION: XR FOOT LEFT 3+ VIEWS (STANDARD) [...] which is more sensitive. Workstation ID: [id number] [facility] Radiology Study observation (narrative) [facility] XR Foot - left 3 ViewsOrdere d By: Vic Mac on 01-12-2024 [facility] Work Phone: ED Prov Noteon 01-10-2024 ED Prov Note Normal [facility] XR FOOT LEFT 3+ VIEWS (STAND ILIA)on 01-09-2024 XR FOOT LEFT 3+ VIEWS (STANDARD) Normal [facility] Comment on above: Order Comment: Injur y/Trauma or Illness?:Illness/OtherHow long have you had these symptoms (acute/chronic)?:AcuteReason for exam?:1st toe painHistory of cancer?:uSurgeries, chemotherapy, or radiation?:pacemakerType of Exam?:InitialAdditional signs and symptoms?:1st toe pain BASIC METABOLIC PANELon 11-22 Anion gap [Moles/Vol] 15 mmol/L Normal 10-20 [facility] Comment on above: Order Comment: [facility] has implemented the eGFR calculation approach that does not have a coefficient for race that conforms to the NKF-ASN Task Force Recommendations. Performed By: #### 4 6124 ####[facility] [address] [place], [place] [address] Abbi Choudhary M.D. [id number] Calcium [Mass/Vol] 9.0 mg/dL Normal 8.4-10.2 [facility] Comment on above: Order Comment: [facility] has implemented the eGFR calculation approach that does not have a coefficient for race that conforms to the NKF-ASN Task Force Recommendations. Performed By: #### 4 6124 ####[facility] [address] [place], [place] [address] Abbi Choudhary M.D. [id number] Chloride [Moles/Vol] 100 mmol/L Normal 98-108 [facility] Comment on above: Order Comment: [facility] has implemented the eGFR calculation approach that does not have a coefficient for race that conforms to the NKF-ASN Task Force Recommendations. Performed By: #### 4 6124 ####[facility] [address] [place], [place] [address] Abbi Choudhary M.D. [id number] Creatinine [Mass/Vol] 1.27 mg/dL High 0.40-1.10 [facility] Comment on above: Order Comment: [facility] has implemented the eGFR calculation approach that does not have a coefficient for race that conforms to the NKF-ASN Task Force Recommendations. Performed By: #### 4 6124 ####[facility] [address] [place], [place] [address] Abbi Choudhary M.D. [id number] EGFR 53 mL/min/1.73 m2 Low >=60 [facility] Comment on above: Order Comment: [facility] has implemented the eGFR calculation approach that does not have a coefficient for race that conforms to the NKF-ASN Task Force Recommendations. Result Comment: Lorie mated GFR was calculated using the 2020 CKD-EPI creatinine equation. Performed By: #### 4 6124 ####[facility] [address] [place], [place] [address] Abbi Choudhary M.D. [id number] Glucose [Mass/Vol] 487 mg/dL Off scale high 65-99 [facility] Comment on above: Order Comment: [facility] has implemented the eGFR calculation approach that does not have a coefficient for race that conforms to the NKF-ASN Task Force Recommendations. Performed By: #### 4 6124 ####[facility] [address] [place], [place] [address] Abbi Choudhary M.D. [id number] HCO3 (Bld) [Moles/Vol] 23 mmol/L Normal 21-32 [facility] Comment on above: Order Comment: [facility] has implemented the eGFR calculation approach that does not have a coefficient for race that conforms to the NKF-ASN Task Force Recommendations. Performed By: #### 4 6124 ####[facility] [address] [place], [place] [address] Abbi Choudhary M.D. [id number] Potassium [Moles/Vol] 5.0 mmol/L Normal 3.5-5.1 [facility] Comment on above: Order Comment: [facility] has implemented the eGFR calculation approach that does not have a coefficient for race that conforms to the NKF-ASN Task Force Recommendations. Performed By: #### 4 6124 ####[facility] [address] [place], [place] [address] Abbi Choudhary M.D. [id number] Sodium [Moles/Vol] 133 mmol/L Low 135-145 [facility] Comment on above: Order Comment: [facility] has implemented the eGFR calculation approach that does not have a coefficient for race that conforms to the NKF-ASN Task Force Recommendations. Performed By: #### 4 6124 ####[facility] [address] [place], [place] [address] Abbi Choudhary M.D. [id number] Urea nitrogen [Mass/Vol] 30 mg/dL High 8-25 [facility] Comment on above: Order Comment: [facility] has implemented the eGFR calculation approach that does not have a coefficient for race that conforms to the NKF-ASN Task Force Recommendations. Performed By: #### 4 6124 ####[facility] [address] [address] Abbi Choudhary M.D. [id number] Urea nitrogen/Creatinine [Mass ratio] 23.6 mg/mg High 10.0-20.0 [facility] Comment on above: Order Comment: [facility] has implemented the eGFR calculation approach that does not have a coefficient for race that conforms to the NKF-ASN Task Force Recommendations. Performed By: #### 4 6124 ####[facility] [address] [address] Abbi Choudhary M.D. [id number] CBC WITH AUTO DIFFERENTIALon 12-07-2023 AUTO NRBC 0.0 % [facility] Comment on above: Performed By: #### L [id number] ####[facility] [address] [address] Abbi Choudhary M.D. [id number] AUTO NRBC ABS COUNT 0.00 K/mcL Normal 0.00-0.00 [facility] Comment on above: Performed By: #### L [id number] ####[facility] [address] [address] Abbi Choudhary M.D. [id number] BASOPHILS ABSOLUTE COUNT 0.08 K/mcL Normal 0.00-0.30 [facility] Comment on above: Performed By: #### L [id number] ####[facility] [address] [address] Abbi Choudhary M.D. [id number] Basophils/100 WBC (Bld) 0.8 % [facility] Comment on above: Performed By: #### L [id number] ####[facility] [address] [address] Abbi Choudhary M.D. [id number] Eosinophils (Bld) [#/Vol] 0.26 10*3/uL Normal 0.00-0.50 [facility] Comment on above: Performed By: #### L [id number] ####[facility] [address] [address] Abbi Choudhary M.D. [id number] Eosinophils/100 WBC (Bld) 2.7 % Normal [facility] Comment on above: Performed By: #### L [id number] ####[facility] [address] [address] Abbi Choudhary M.D. [id number] Erythrocyte distribution width (RBC) [Ratio] 12.6 % Normal 11.6-14.8 [facility] Comment on above: Performed By: #### L [id number] ####[facility] [address] [address] Abbi Choudhary M.D. [id number] Hematocrit (Bld) [Volume fraction] 33.1 % Low 36.0-46.0 [facility] Comment on above: Performed By: #### L [id number] ####[facility] [address] [address] Abbi Choudhary M.D. [id number] Hemoglobin (Bld) [Mass/Vol] 11.2 g/dL Low 12.0-16.0 [facility] Comment on above: Performed By: #### L [id number] ####[facility] [address] [address] Abbi Choudhary M.D. [id number] IG ABSOLUTE 0.05 K/mcL Normal 0.00-0.30 [facility] Comment on above: Performed By: #### L [id number] ####[facility] [address] [address] Abbi Choudhary M.D. [id number] IG PERCENT 0.50 % Normal [facility] Comment on above: Result Comment: The IG parameter is the percentage of metamyelocytes, myelocytes and promyelocytes. An immature granulocyte count (IG) of 1% or more suggests the possibility of infection, an IG count of 3% is very likely related to an infection. Performed By: #### L [id number] ####[facility] [address] [address] Abbi Choudhary M.D. [id number] Lymphocytes (Bld) [#/Vol] 2.06 10*3/uL Normal 0.90-4.00 [facility] Comment on above: Performed By: #### L [id number] ####[facility] [address] [place] [address] Abbi Choudhary M.D. [id number] Lymphocytes/100 WBC (Bld) 21.3 % Normal [facility] Comment on above: Performed By: #### L [id number] ####[facility] [address] [place] [address] Abbi Choudhary M.D. [id number] MCH (RBC) [Entitic mass] 30.5 pg Normal 26.0-34.0 [facility] Comment on above: Performed By: #### L [id number] ####[facility] [address] [address] Abbi Choudhary M.D. [id number] MCV (RBC) [Entitic vol] 90.2 fL Normal 80.0-100.0 [facility] Comment on above: Performed By: #### L [id number] ####[facility] [address] [place] [address] Abbi Choudhary M.D. [id number] MEAN CORPUSCULAR HEMOGLOBIN CONC 33.8 g/dL Normal 31.0-37.0 [facility] Comment on above: Performed By: #### L [id number] ####[facility] [address] [place] [address] Abbi Choudhary M.D. [id number] Monocytes (Bld) [#/Vol] 0.54 10*3/uL Normal 0.30-0.90 [facility] Comment on above: Performed By: #### L [id number] ####[facility] [address] [place] [address] Abbi Choudhary M.D. [id number] Monocytes/100 WBC (Bld) 5.6 % Normal [facility] Comment on above: Performed By: #### L [id number] ####[facility] [address] [place], [place] [address] Abbi Choudhary M.D. [id number] NEUTROPHILS ABSOLUTE COUNT 6.67 K/mcL Normal 1.70-7.00 [facility] Comment on above: Performed By: #### L [id number] ####[facility] [address] [place], [place] [address] Abbi Choudhary M.D. [id number] Neutrophils/100 WBC (Bld) 69.1 % Normal [facility] Comment on above: Performed By: #### L [id number] ####[facility] [address] [place], [place] [address] Abbi Choudhary M.D. [id number] Platelet mean volume (Bld) [Entitic vol] 8.9 fL Low 9.4-12.4 [facility] Comment on above: Performed By: #### L [id number] ####[facility] [address] [place], [place] [address] Abbi Choudhary M.D. [id number] Platelets (Bld) [#/Vol] 271 10*3/uL Normal 150-400 [facility] Comment on above: Performed By: #### L [id number] ####[facility] [address] [place], [place] [address] Abbi Choudhary M.D. [id number] RBC (Bld) [#/Vol] 3.67 10*6/uL Low 4.00-5.20 [facility] Comment on above: Performed By: #### L [id number] ####[facility] [address] [place], [place] [address] Abbi Choudhary M.D. [id number] WBC (Bld) [#/Vol] 9.66 10*3/uL Normal 4.50-11.00 [facility] Comment on above: Performed By: #### L [id number] ####[facility] [address] [place] [address] Abbi Choudhary M.D. [id number] D-DIMER, QUANTITATIVEon 11-22 D-DIMER QUANTITATIVE 0.42 mcg/mL FEU Normal 0.27-0.49 [facility] Comment on above: Order Comment: A D-d [...] By: #### 4 5434 #### LAB [address] [place], [place] [address] Abbi Choudhary M.D. [id number] ED Prov Noteon 12-07-2023 ED Prov Note Normal [facility] NT PRO BNPon 12-07-2023 Natriuretic peptide B (Bld) [Mass/Vol] 124 pg/mL Normal 0-300 [facility] Comment on above: Order Comment: Pride Study Cut-offsRule In:< /= 50 Years >450 pg/mL51 Years - 75 Years >900 pg/mL76 Years - 99 Years >1800 pg/mLRule Out:All patients <300 pg/mL Performed By: #### 4 7395 ####[facility] [address] [place], [place] [address] Abbi Choudhary M.D. [id number] POC GLUCOSE - [facility] 024 Glucose [Mass/Vol] 339 mg/dL High 65-99 [facility] Comment on above: Performed By: #### 4 6932 #### LAB [address] [place], [place] [address] Abbi Choudhary M.D. [id number] Glucose [Mass/Vol] 454 mg/dL Off scale high 65-99 [facility] Comment on above: Order Comment: Criti marquita result acted upon time of test. Test performed at bedside. Performed By: #### 4 6932 ####[facility] [address] [place], [place] [address] Abbi Choudhary M.D. [id number] TROPONINon 12-07-2023 TROPONIN T DELTA CHANGE INTERPRETATION Delta troponin requires at least 3 hours between collections. Normal [facility] Comment on above: Performed By: #### 4 6608 ####[facility] [address] [place] [address] Abbi Choudhary M.D. [id number] TROPONIN T NG/L 17 ng/L Off scale high <=14 [facility] Comment on above: Performed By: #### 4 6608 ####[facility] [address] [place] [address] Abbi Choudhary M.D. [id number] BASELINE TROPONIN T NG/L 18 ng/L Off scale high <=14 [facility] Comment on above: Performed By: #### 4 6608 ####[facility] [address] [place] [address] Abbi Choudhary M.D. [id number] TROPONIN T INTERPRETATION Possible acute cardiac injury. [facility] Comment on above: Performed By: #### 4 6608 ####[facility] [address] [place] [address] Abbi Choudhary M.D. [id number] XR CHEST PA/APon 12-07-2023 XR CHEST PA/AP [facility] Comment on above: Order Comment: Injur y/Trauma or Illness?:Illness/OtherHow long have you had these symptoms (acute/chronic)?:AcuteReason for exam?:cpHistory of cancer?:uSurgeries, chemotherapy, or radiation?:pacemakerType of Exam?:InitialAdditional signs and symptoms?:Pt arrived via ems from home with c/o 7/10 mid sternal chest pain that started 2 hours ago. COVID-19, MOLECULARon 2023 SARS-CoV-2 (COVID-19) Ab IA Ql Not detected Normal Not Detected [facility] Comment on above: Result Comment: Test [...] EBONIE+probe Ql (Resp) Not detected Not Detected [facility] Comment on above: Testing was performe d using the [employer] ID NOW COVID-19 assay on the ID NOW platform. This test has not been approved for use in asymptomatic patients and its performance in this patient population has not been evaluated. Negative results do not rule out the presence of SARS-CoV-2/COVID-19. POC Influenza Aon 12-01-2023 FLUAV Ag Ql (Nph) Negative Negative [facility] POC Influenza Bon 12-01-2023 FLUBV Ag Ql (Nph) Negative Negative [facility] SARS-CoV-2 (COVID-19) RdRp g braden EBONIE+probe Ql (Resp)on 12-01-2023 Interpretation and review of laboratory results Normal [facility] Eye - left US 2Don [facility] Radiology Study observation (narrative) [facility] FUNDUS PHOTOGRAPHY-OUon 10-23 Right Eye Clear. Disc findings include normal observations. Vessel findings include A/V crossing changes, arteriole narrowing. Macula findings include microaneurysms, dot/blot hemorrhages. Cotton Wool Spots, Dot/Blot Hemorrhages. Interval change is baseline. Left Eye Vitreous Hemorrhage. Interval change is baseline. RADIOLOGY [facility] Radiology [facility]narrative) [facility]-29-2023 Coding Summary. [id number]#1.00TIFF Normal [facility] Coding Summary. [id number]#1.00TIFF Normal [facility] Comment on above: Other Comment: repla sarah with updated mock Coding Summary.on 10-28-2023 Coding Summary. [id number]#1.00TIFF Normal [facility] Comment on above: Other Comment: wrong pt. No Panel Informationon 08-25 IMPRESSION: Soft tissue swelling. No acute fracture evident. Healed, internally fixated distal fibular fracture with sequela of remote collateral ligamentous trauma at the ankle. OLOGY EXAM: XR FOOT LEFT 3 + VIEWS, XR ANKLE LEFT 3+ VIEWS, XR TIBIA AND FIBULA LEFT 2 VIEWS, 08/26/2023 18:44 PM (accession [id number]), 08/26/2023 18:46 PM (accession [id number]), 08/26/2023 18:46 PM (accession [id number]) COMPARISON: Ankle radiographs dated May 16, 2008 [...] LEFT 2 VIEWS, 08/26/2023 18:44 PM (accession [id number]), 08/26/2023 18:46 PM (accession [id number]), 08/26/2023 18:46 PM (accession [id number]) COMPARISON: Ankle radiographs dated May 16, 2008 [...] remote collateral ligamentous trauma at the ankle. [facility] No Panel InformationOrdered By: Kwaku Jay on 08-26-2023 [facility] Work Phone: XR Ankle - left 3 [facility] Radiology Study observation (narrative) [facility] XR Foot - left 3 [facility] Radiology Study observation (narrative) [facility] XR Tibia and Fibula - left V [facility] 08-26-2023 Radiology Study observation (narrative) [facility] CBC panel Auto (Bld)on 03-30 Erythrocyte distribution width (RBC) [Entitic vol] 13.2 % 11.6 - 14.8 % [facility] Hematocrit (Bld) [Volume fraction] 32.6 % Low 36.0 - 46.0 % [facility] Hemoglobin (Bld) [Mass/Vol] 10.5 g/dL Low 12.0 - 16.0 g/dL [facility] Interpretation and review of laboratory results Abnormal [facility] MCH (RBC) [Entitic mass] 30.1 pg 26.0 - 34.0 pg [facility] MCHC (RBC) [Mass/Vol] 32.2 g/dL 31.0 - 37.0 g/dL [facility] MCV (RBC) [Entitic vol] 93.4 fL 80.0 - 100.0 fL [facility] Nucleated RBC (Bld) [#/Vol] 0.00 10*3/uL [facility] Nucleated RBC/100 WBC (Bld) [Ratio] 0.0 % [facility] Platelet mean volume (Bld) [Entitic vol] 8.7 fL Low 9.4 - 12.4 fL [facility] Platelets (Bld) [#/Vol] 296 10*3/uL [facility] RBC (Bld) [#/Vol] 3.49 10*6/uL Low [facility] eah WBC (Bld) [#/Vol] 7.46 10*3/uL [facility] Glucose (Bld) [Mass/Vol]on 05-30-2022 Glucose [Mass/Vol] 232 mg/dL High 65 - 99 mg/dL [facility] Interpretation and review of laboratory results Abnormal [facility] Glucose [Mass/Vol] 306 mg/dL High 65 - 99 mg/dL [facility] Interpretation and review of laboratory results Abnormal [facility] Renal function 2000 panelon 03-30-2023 Albumin [Mass/Vol] 3.2 g/dL 3.2 - 5.2 g/dL [facility] Anion gap [Moles/Vol] 10 mmol/L 10 - 2 0 mmol/L [facility] Calcium [Mass/Vol] 8.7 mg/dL 8.4 - 10. 2 mg/dL [facility] Chloride [Moles/Vol] 106 mmol/L 98 - 10 8 mmol/L [facility] Creatinine [Mass/Vol] 1.29 mg/dL High 0.40 - 1.10 mg/dL [facility] GFR/1.73 sq M.predicted CKD-EPI (S/P/Bld) [Vol rate/Area] 52 Low - PINF [facility] Comment on above: Estimated GFR was ca lculated using the 2020 CKD-EPI creatinine equation. Glucose [Mass/Vol] 338 mg/dL High 65 - 99 mg/dL [facility] HCO3 [Moles/Vol] 25 mmol/L 21 - 32 mmol/L [facility] Interpretation and review of laboratory results Abnormal [facility] Phosphate [Mass/Vol] 3.7 mg/dL 2.7 - 4 .5 mg/dL [facility] Potassium [Moles/Vol] 4.0 mmol/L 3.5 - 5.1 mmol/L [facility] Sodium [Moles/Vol] 137 mmol/L 135 - 145 mmol/L [facility] Urea nitrogen [Mass/Vol] 22 mg/dL 8 - 25 mg/dL [facility] Urea nitrogen/Creatinine [Mass ratio] 17.1 mg/mg 10.0 - 20.0 [facility] has implemented the eGFR calculation approach that does not have a coefficient for race that conforms to the NKF-ASN Task Force Recommendations. [facility] Basic metabolic 2000 panelon 03-29-2023 Anion gap [Moles/Vol] 13 mmol/L 10 - 2 0 mmol/L [facility] Calcium [Mass/Vol] 9.2 mg/dL 8.4 - 10. 2 mg/dL [facility] Chloride [Moles/Vol] 106 mmol/L 98 - 10 8 mmol/L [facility] Creatinine [Mass/Vol] 1.07 mg/dL 0.40 - 1.10 mg/dL [facility] GFR/1.73 sq M.predicted CKD-EPI (S/P/Bld) [Vol rate/Area] 65 - PINF [facility] Comment on above: Estimated GFR was ca lculated using the 2020 CKD-EPI creatinine equation. Glucose [Mass/Vol] 122 mg/dL High 65 - 99 mg/dL [facility] HCO3 [Moles/Vol] 25 mmol/L 21 - 32 mmol/L [facility] Interpretation and review of laboratory results Abnormal [facility] Potassium [Moles/Vol] 3.9 mmol/L 3.5 - 5.1 mmol/L [facility] Sodium [Moles/Vol] 140 mmol/L 135 - 145 mmol/L [facility] Urea nitrogen [Mass/Vol] 15 mg/dL 8 - 25 mg/dL [facility] Urea nitrogen/Creatinine [Mass ratio] 14.0 mg/mg 10.0 - 20.0 [facility] has implemented the eGFR calculation approach that does not have a coefficient for race that conforms to the NKF-ASN Task Force Recommendations. [facility] CBC Auto Differentialon 11-0 Basophils (Bld) [#/Vol] 0.06 10*3/uL [facility] Basophils/100 WBC (Bld) 0.6 % [facility] Eosinophils (Bld) [#/Vol] 0.14 10*3/uL [facility] Eosinophils/100 WBC (Bld) 1.5 % [facility] Erythrocyte distribution width (RBC) [Entitic vol] 13.1 % 11.6 - 14.8 % [facility] Hematocrit (Bld) [Volume fraction] 35.1 % Low 36.0 - 46.0 % [facility] Hemoglobin (Bld) [Mass/Vol] 11.9 g/dL Low 12.0 - 16.0 g/dL [facility] Immature granulocytes (Bld) [#/Vol] 0.05 10*3/uL [facility] Immature granulocytes/100 WBC (Bld) 0.50 % [facility] Comment on above: The IG parameter is the percentage of metamyelocytes, myelocytes and promyelocytes. An immature granulocyte count (IG) of 1% or more suggests the possibility of infection, an IG count of 3% is very likely related to an infection. Interpretation and review of laboratory results Abnormal [facility] Lymphocytes (Bld) [#/Vol] 1.49 10*3/uL [facility] Lymphocytes/100 WBC (Bld) 15.8 % [facility] MCH (RBC) [Entitic mass] 30.5 pg 26.0 - 34.0 pg [facility] MCHC (RBC) [Mass/Vol] 33.9 g/dL 31.0 - 37.0 g/dL [facility] MCV (RBC) [Entitic vol] 90.0 fL 80.0 - 100.0 fL [facility] Monocytes (Bld) [#/Vol] 0.49 10*3/uL [facility] Monocytes/100 WBC (Bld) 5.2 % [facility] Neutrophils (Bld) [#/Vol] 7.21 10*3/uL High [facility] Neutrophils/100 WBC (Bld) 76.4 % [facility] Nucleated RBC (Bld) [#/Vol] 0.00 10*3/uL [facility] Nucleated RBC/100 WBC (Bld) [Ratio] 0.0 % [facility] Platelet mean volume (Bld) [Entitic vol] 8.7 fL Low 9.4 - 12.4 fL [facility] Platelets (Bld) [#/Vol] 306 10*3/uL [facility] RBC (Bld) [#/Vol] 3.90 10*6/uL Low [facility] WBC (Bld) [#/Vol] 9.44 10*3/uL [facility] CT Chest Abdomen Pelvis With out Contraston 03-29-2023 1. Normal caliber of the aorta of without evidence of aneurysm. 2. No acute CT findings of the chest, abdomen or pelvis. 3. Chronic findings as detailed above. Workstation ID: [id number] [employer] EXAMINATION: CT CHEST ABDOMEN PELVIS WITHOUT CONTRAST [...] degenerative changes. Pelvis: No acute osseous abnormality. [facility] Indra Serna MD - 03/29/2023 EXAMINATION: [...] findings as detailed above. Workstation ID: [id number] [facility] Radiology Study observation (narrative) [facility] CT Chest Abdomen Pelvis With out ContrastOrdered By: Indra Serna on 03-29-2023 [facility] Work Phone: EKGon 03-29-2023 [facility] Glucose (Bld) [Mass/Vol]on 1 05-29-2022 Glucose [Mass/Vol] 260 mg/dL High 65 - 99 mg/dL [facility] Interpretation and review of laboratory results Abnormal [facility] Glucose [Mass/Vol] 88 mg/dL 65 - 99 mg/dL [facility] Interpretation and review of laboratory results Normal [facility] HbA1c (Bld) [Mass fraction]o n 03-29-2023 Average glucose Estimated from glycated hemoglobin (Bld) [Mass/Vol] 235 mg/dL High 74 - 114 mg/dL [facility] Interpretation and review of laboratory results Abnormal [facility] Hemoglobin A1con 03-29-2023 HbA1c (Bld) [Mass fraction] 9.8 % High 4.2 - 5.6 % [facility] Hepatic function 2000 panelo n 03-29-2023 Albumin [Mass/Vol] 3.8 g/dL 3.2 - 5.2 g/dL [facility] ALP [Catalytic activity/Vol] 108 U/L 40 - 150 U/L [facility] ALT [Catalytic activity/Vol] 7 U/L 0-35 U/L [facility] AST [Catalytic activity/Vol] 8 U/L 0-35 U/L [facility] Bilirubin [Mass/Vol] 0.3 mg/dL 0.0 - 1 .3 mg/dL [facility] Bilirubin.conjugated [Mass/Vol] mg/dL 0.0 - 0.4 mg/dL [facility] Protein [Mass/Vol] 6.8 g/dL 6.0 - 8.0 g/dL [facility] Lipaseon 03-29-2023 Lipase [Catalytic activity/Vol] 37 U/L 15 - 65 U/L [facility] No Panel Informationon 03-29 Extra Tube Hold for add-ons. [facility] Comment on above: Auto resulted. [facility] Interpretation and review of laboratory results Normal [facility] TSH DL <= 0.005 mIU/L Qnon 1 05-29-2022 Interpretation and review of laboratory results Normal [facility] TSH Qn 2.94 m[IU]/L [facility] TroponinOrdered By: Shy crawford on 03-29-2023 [employer] Difference Troponin T -1 ng/L < = -/+ 7 change [facility] Interp Troponin T Delta Change Probable non-acute cardiac injury or late presentation of acute injury. [facility] Troponin T 14 ng/L NINF - 14 ng/L [facility] TroponinOrdered By: Charisse chapa on 03-29-2023 Interpretation and review of laboratory results Abnormal [facility] Troponin T 15 ng/L Critically high NINF - 14 ng/L [facility] Troponin T Interpretation Possible acute cardiac injury. [facility] XR Chest 1 Viewon 03-29-2023 Low lung volumes and small effusion suspected. MA/hb Workstation ID: [id number] [employer] EXAMINATION: XR CHEST PA/AP 03/29/2023 10:34 am [...] present. There is a transvenous defibrillator present. [facility] Laura Hodge MD - 03/29/2023 EXAMINATION: XR [...] small effusion suspected. MA/hb Workstation ID: [id number] [facility] Radiology Study observation (narrative) [facility] XR Chest 1 ViewOrdered By: Joel Hodge on 03-29-2023 [facility] Work Phone: Basic metabolic 2000 panelon 02-20-2023 Anion gap [Moles/Vol] 14 mmol/L 10 - 2 0 mmol/L [facility] Calcium [Mass/Vol] 7.8 mg/dL Low 8.4 - 10. 2 mg/dL [facility] Chloride [Moles/Vol] 110 mmol/L High 98 - 10 8 mmol/L [facility] Creatinine [Mass/Vol] 1.19 mg/dL High 0.40 - 1.10 mg/dL [facility] GFR/1.73 sq M.predicted CKD-EPI (S/P/Bld) [Vol rate/Area] 58 Low - PINF [facility] Comment on above: Estimated GFR was ca lculated using the 2020 CKD-EPI creatinine equation. Glucose [Mass/Vol] 227 mg/dL High 65 - 99 mg/dL [facility] HCO3 [Moles/Vol] 20 mmol/L Low 21 - 32 mmol/L [facility] Interpretation and review of laboratory results Abnormal [facility] Potassium [Moles/Vol] 4.6 mmol/L 3.5 - 5.1 mmol/L [facility] Sodium [Moles/Vol] 139 mmol/L 135 - 145 mmol/L [facility] Urea nitrogen [Mass/Vol] 27 mg/dL High 8 - 25 mg/dL [facility] Urea nitrogen/Creatinine [Mass ratio] 22.7 mg/mg High 10.0 - 20.0 [facility] has implemented the eGFR calculation approach that does not have a coefficient for race that conforms to the NKF-ASN Task Force Recommendations. [facility] Glucose (Bld) [Mass/Vol]on 0 02-20-2023 Glucose [Mass/Vol] 187 mg/dL High 65 - 99 mg/dL [facility] Interpretation and review of laboratory results Abnormal [facility] Glucose [Mass/Vol] 257 mg/dL High 65 - 99 mg/dL [facility] Interpretation and review of laboratory results Abnormal [facility] Basic metabolic 1999 panelOr dered By: Jayna Hart on 02-19-2023 Anion gap [Moles/Vol] 15 mmol/L 10 - 2 0 mmol/L [facility] Calcium [Mass/Vol] 8.6 mg/dL 8.4 - 10. 2 mg/dL [facility] Chloride [Moles/Vol] 107 mmol/L 98 - 10 8 mmol/L [facility] Creatinine [Mass/Vol] 2.04 mg/dL High 0.40 - 1.10 mg/dL [facility] GFR/1.73 sq M.predicted CKD-EPI (S/P/Bld) [Vol rate/Area] 30 Low - PINF [facility] Comment on above: Estimated GFR was ca lculated using the 2020 CKD-EPI creatinine equation. Glucose [Mass/Vol] 62 mg/dL Low 65 - 99 mg/dL [facility] HCO3 [Moles/Vol] 20 mmol/L Low 21 - 32 mmol/L [facility] Interpretation and review of laboratory results Abnormal [facility] Potassium [Moles/Vol] 4.3 mmol/L 3.5 - 5.1 mmol/L [facility] Sodium [Moles/Vol] 138 mmol/L 135 - 145 mmol/L [facility] Urea nitrogen [Mass/Vol] 23 mg/dL 8 - 25 mg/dL [facility] Urea nitrogen/Creatinine [Mass ratio] 11.3 mg/mg 10.0 - 20.0 [facility] has implemented the eGFR calculation approach that does not have a coefficient for race that conforms to the NKF-ASN Task Force Recommendations. [facility] CBC panel Auto (Bld)on 02-19 Erythrocyte distribution width (RBC) [Entitic vol] 13.7 % 11.6 - 14.8 % [facility] Hematocrit (Bld) [Volume fraction] 33.9 % Low 36.0 - 46.0 % [facility] Hemoglobin (Bld) [Mass/Vol] 11.4 g/dL Low 12.0 - 16.0 g/dL [facility] Interpretation and review of laboratory results Abnormal [facility] MCH (RBC) [Entitic mass] 30.2 pg 26.0 - 34.0 pg [facility] MCHC (RBC) [Mass/Vol] 33.6 g/dL 31.0 - 37.0 g/dL [facility] MCV (RBC) [Entitic vol] 89.7 fL 80.0 - 100.0 fL [facility] Nucleated RBC (Bld) [#/Vol] 0.00 10*3/uL [facility] Nucleated RBC/100 WBC (Bld) [Ratio] 0.0 % [facility] Platelet mean volume (Bld) [Entitic vol] 9.4 fL 9.4 - 12.4 fL [facility] Platelets (Bld) [#/Vol] 304 10*3/uL [facility] RBC (Bld) [#/Vol] 3.78 10*6/uL Low [facility] ealt WBC (Bld) [#/Vol] 8.21 10*3/uL [facility] Echocardiogram completeOrder ed By: Yan Jones on 02-19-2023 Aortic valve area 3.44380 cm [facility] Work Phone: AV mean gradient 3.[address] [facility] Work Phone: AV peak gradient 5.[address] [facility] Work Phone: EF 49.5637 % [facility] Work Phone: [facility] Work Phone: Echocardiogram completeon Patient Info Name: ADDIE ORGAN Age: 47 years : 1975 Gender: Female Ht: 157 cm Wt: 114 kg BSA: 2.30 m2 BP: 82 / 62 mmHg Technical Quality: Fair Exam Date: 02/18/2023 6:42 PM Patient Status: Inpatient Security System Sales Consultant: Babs Barnes RDCS Exam Type: ECHOCARDIOGRAM COMPLETE Study Info Indications - Chest pain - Evaluate LV function Attending Physician: [facility] [place] Referring Physician: JUDY Noble; [id number] BMI: 45.91 kg/m2 Summary 1. Normal LV [...] Date: 02/18/2023 6:42 PM Patient Status: Inpatient Security System Sales Consultant: Babs Barnes RDCS Exam Type: ECHOCARDIOGRAM COMPLETE Study Info Indications - Chest pain - Evaluate LV function Attending Physician: [facility] [place] Referring Physician: [id number] Mckeon; [id number] BMI: 45.91 kg/m2 Summary 1. Normal LV [...] Name Value Normal MV Doppler MV Decel Eagle 375 cm/s2 MV PHT 77 ms MV Area (PHT) 2.9 cm2 4.0-5.0 MV Diastolic Function MV E Peak Velocity 0.99 m/s MV A Peak Velocity 0.91 m/s MV E/A 1.1 MV Decel Time 265 ms MV Annular TDI MV Septal e' Velocity 8.2 cm/s >=8.0 MV E/e' (Septal) 12.1 <=8.0 MV Lateral e' Velo (more content not included)... [facility] Glucose (Bld) [Mass/Vol]on 0 02-19-2023 Glucose [Mass/Vol] 332 mg/dL High 65 - 99 mg/dL [facility] Interpretation and review of laboratory results Abnormal [facility] Glucose [Mass/Vol] 267 mg/dL High 65 - 99 mg/dL [facility] Interpretation and review of laboratory results Abnormal [facility] Glucose [Mass/Vol] 162 mg/dL High 65 - 99 mg/dL [facility] Interpretation and review of laboratory results Abnormal [facility] Glucose [Mass/Vol] 63 mg/dL Low 65 - 99 mg/dL [facility] Interpretation and review of laboratory results Abnormal [facility] Glucose [Mass/Vol] 80 mg/dL 65 - 99 mg/dL [facility] Interpretation and review of laboratory results Normal [facility] Lactate [Moles/Vol]on 2022 Interpretation and review of laboratory results Normal [facility] Lactic Acid, Plasmaon 2022 Lactate [Moles/Vol] 1.7 mmol/L 0.6 - 2. 0 mmol/L [facility] Troponin x 2 (Now and Repeat in 3 hours)on 02-19-2023 Interpretation and review of laboratory results Abnormal [facility] Troponin T 33 ng/L Critically high NINF - 14 ng/L [facility] Troponin T Interpretation Possible acute cardiac injury. [facility] Basic metabolic 2000 panelon 02-18-2023 Anion gap [Moles/Vol] 15 mmol/L 10 - 2 0 mmol/L [facility] Calcium [Mass/Vol] 8.9 mg/dL 8.4 - 10. 2 mg/dL [facility] Chloride [Moles/Vol] 105 mmol/L 98 - 10 8 mmol/L [facility] Creatinine [Mass/Vol] 0.99 mg/dL 0.40 - 1.10 mg/dL [facility] GFR/1.73 sq M.predicted CKD-EPI (S/P/Bld) [Vol rate/Area] 72 - PINF [facility] Comment on above: Estimated GFR was ca lculated using the 2020 CKD-EPI creatinine equation. Glucose [Mass/Vol] 144 mg/dL High 65 - 99 mg/dL [facility] HCO3 [Moles/Vol] 23 mmol/L 21 - 32 mmol/L [facility] Interpretation and review of laboratory results Abnormal [facility] Potassium [Moles/Vol] 3.8 mmol/L 3.5 - 5.1 mmol/L [facility] Sodium [Moles/Vol] 139 mmol/L 135 - 145 mmol/L [facility] Urea nitrogen [Mass/Vol] 15 mg/dL 8 - 25 mg/dL [facility] Urea nitrogen/Creatinine [Mass ratio] 15.2 mg/mg 10.0 - 20.0 [facility] has implemented the eGFR calculation approach that does not have a coefficient for race that conforms to the NKF-ASN Task Force Recommendations. [facility] CBC Auto Differentialon 01-24 Basophils (Bld) [#/Vol] 0.05 10*3/uL [facility] Basophils/100 WBC (Bld) 0.6 % [facility] Eosinophils (Bld) [#/Vol] 0.21 10*3/uL [facility] Eosinophils/100 WBC (Bld) 2.4 % [facility] Erythrocyte distribution width (RBC) [Entitic vol] 13.0 % 11.6 - 14.8 % [facility] Hematocrit (Bld) [Volume fraction] 36.9 % 36.0 - 46.0 % [facility] Hemoglobin (Bld) [Mass/Vol] 12.3 g/dL 12.0 - 16.0 g/dL [facility] Immature granulocytes (Bld) [#/Vol] 0.04 10*3/uL [facility] Immature granulocytes/100 WBC (Bld) 0.50 % [facility] Comment on above: The IG parameter is the percentage of metamyelocytes, myelocytes and promyelocytes. An immature granulocyte count (IG) of 1% or more suggests the possibility of infection, an IG count of 3% is very likely related to an infection. Lymphocytes (Bld) [#/Vol] 2.80 10*3/uL [facility] Lymphocytes/100 WBC (Bld) 32.6 % [facility] MCH (RBC) [Entitic mass] 29.4 pg 26.0 - 34.0 pg [facility] MCHC (RBC) [Mass/Vol] 33.3 g/dL 31.0 - 37.0 g/dL [facility] MCV (RBC) [Entitic vol] 88.1 fL 80.0 - 100.0 fL [facility] Monocytes (Bld) [#/Vol] 0.45 10*3/uL [facility] Monocytes/100 WBC (Bld) 5.2 % [facility] Neutrophils (Bld) [#/Vol] 5.03 10*3/uL [facility] [facility] Neutrophils/100 WBC (Bld) 58.7 % [facility] Nucleated RBC (Bld) [#/Vol] 0.00 10*3/uL [facility] Nucleated RBC/100 WBC (Bld) [Ratio] 0.0 % [facility] Platelet mean volume (Bld) [Entitic vol] 9.5 fL 9.4 - 12.4 fL [facility] Platelets (Bld) [#/Vol] 312 10*3/uL [facility] RBC (Bld) [#/Vol] 4.19 10*6/uL [facility] ealth WBC (Bld) [#/Vol] 8.58 10*3/uL [facility] ealth [facility] EKGon 02-18-2023 [facility] Echocardiogram completeon Radiology Study observation (narrative) [facility] Glucose (Bld) [Mass/Vol]on 0 02-18-2023 Glucose [Mass/Vol] 204 mg/dL High 65 - 99 mg/dL [facility] Interpretation and review of laboratory results Abnormal [facility] Glucose [Mass/Vol] 401 mg/dL Critically high 65 - 9 9 mg/dL [facility] Interpretation and review of laboratory results Abnormal [facility] Critical result acte d upon time of test. Test performed at bedside. [facility] Glucose [Mass/Vol] 336 mg/dL High 65 - 99 mg/dL [facility] Interpretation and review of laboratory results Abnormal [facility] Glucose [Mass/Vol] 118 mg/dL High 65 - 99 mg/dL [facility] Interpretation and review of laboratory results Abnormal [facility] Glucose [Mass/Vol] 183 mg/dL High 65 - 99 mg/dL [facility] Interpretation and review of laboratory results Abnormal [facility] NM Myocardial Perfusion Mult iple SPECTOrdered By: Inessa Rao on 02-18-2023 LV Stress Diastolic Volume 51 ml [facility] Work Phone: LV Stress Systolic Volume 7 ml [facility] Work Phone: Stress Nuc Stress EF 86 % [facility] Work Phone: [facility] Work Phone: NM Myocardial Perfusion Mult iple SPECTon 02-18-2023 Patient Info Name: ADDIE JEAN BAPTISTE Age: 47 years : 1975 Gender: Female Ht: 157 cm Wt: 114 kg BSA: 2.30 m2 Exam Date: 02/18/2023 8:50 AM Patient Status: Inpatient Client Services Manager: Aravind Wright, ROGELIO, Davide Mims, RT (N), Hayden Mendieta R.T.(N), ROGELIO Exam Type: NM MYOCARDIAL PERFUSION MULTI SPECT Study Info Indications - Chest pain/anginal equiv, high CAD risk, not treadmill candidate Attending Physician: [facility] Nuclear Physician: Inessa Rao MD [id number] Primary Nurse: Sandra Sweeney RN Secondary Nurse: [...] size is normal. Radiopharmaceutical: Tc-99m Camera Used: [employer] Radiopharmaceutical: Tc-99m Camera Used: [employer] Image Protocol Protocol: Rest/Stress 1 Day Rest [...] Date: 02/18/2023 8:50 AM Patient Status: Inpatient Client Services Manager: Aravind Wright, ROGELIO, Davide Mims RT (N), Hayden Mendieta RApolinar(N), ROGELIO Exam Type: NM MYOCARDIAL PERFUSION MULTI SPECT Study Info Indications - Chest pain/anginal equiv, high CAD risk, not treadmill candidate Attending Physician: [facility] [place] Nuclear Physician: Inessa Rao MD [id number] Primary Nurse: Sandra Sweeney RN Secondary Nurse: [...] size is normal. Radiopharmaceutical: Tc-99m Camera Used: [email or web address] Radiopharmaceutical: Tc-99m Camera Used: [email or web address] Image Protocol Protocol: Rest/Stress 1 Day Rest [...] perfusion imaging study (more content not included)... [facility] Radiology Study observation (narrative) [facility] TroponinOrdered By: Robin chauhan on 02-18-2023 Delta Difference Troponin T -1 ng/L < = -/+ 7 change [facility] Interp Troponin T Delta Change Probable non-acute cardiac injury or late presentation of acute injury. [facility] Interpretation and review of laboratory results Abnormal [facility] Troponin T 19 ng/L Critically high NINF - 14 ng/L [facility] Troponinon 02-18-2023 Interp Troponin T Delta Change Delta troponin requires at least 3 hours between collections. [facility] Interpretation and review of laboratory results Abnormal [facility] Troponin T 18 ng/L Critically high NINF - 14 ng/L [facility] Troponin x 2 (Now and Repeat in 3 hours)on 02-18-2023 Delta Difference Troponin T -2 ng/L < = -/+ 7 change [facility] Interp Troponin T Delta Change Probable non-acute cardiac injury or late presentation of acute injury. [facility] Interpretation and review of laboratory results Abnormal [facility] Troponin T 18 ng/L Critically high NINF - 14 ng/L [facility] CBC Auto Differentialon 01-24 Basophils (Bld) [#/Vol] 0.07 10*3/uL [facility] Basophils/100 WBC (Bld) 0.8 % [facility] Eosinophils (Bld) [#/Vol] 0.21 10*3/uL [facility] Eosinophils/100 WBC (Bld) 2.4 % [facility] Erythrocyte distribution width (RBC) [Entitic vol] 13.0 % 11.6 - 14.8 % [facility] Hematocrit (Bld) [Volume fraction] 37.9 % 36.0 - 46.0 % [facility] Hemoglobin (Bld) [Mass/Vol] 12.8 g/dL 12.0 - 16.0 g/dL [facility] Immature granulocytes (Bld) [#/Vol] 0.04 10*3/uL [facility] Immature granulocytes/100 WBC (Bld) 0.50 % [facility] Comment on above: The IG parameter is the percentage of metamyelocytes, myelocytes and promyelocytes. An immature granulocyte count (IG) of 1% or more suggests the possibility of infection, an IG count of 3% is very likely related to an infection. Lymphocytes (Bld) [#/Vol] 2.28 10*3/uL [facility] Lymphocytes/100 WBC (Bld) 25.9 % [facility] MCH (RBC) [Entitic mass] 29.6 pg 26.0 - 34.0 pg [facility] MCHC (RBC) [Mass/Vol] 33.8 g/dL 31.0 - 37.0 g/dL [facility] MCV (RBC) [Entitic vol] 87.5 fL 80.0 - 100.0 fL [facility] Monocytes (Bld) [#/Vol] 0.46 10*3/uL [facility] Monocytes/100 WBC (Bld) 5.2 % [facility] Neutrophils (Bld) [#/Vol] 5.76 10*3/uL [facility] Neutrophils/100 WBC (Bld) 65.2 % [facility] Nucleated RBC (Bld) [#/Vol] 0.00 10*3/uL [facility] Nucleated RBC/100 WBC (Bld) [Ratio] 0.0 % [facility] Platelet mean volume (Bld) [Entitic vol] 9.4 fL 9.4 - 12.4 fL [facility] Platelets (Bld) [#/Vol] 318 10*3/uL [facility] RBC (Bld) [#/Vol] 4.33 10*6/uL [facility] WBC (Bld) [#/Vol] 8.82 10*3/uL [facility] CT Chest Abdomen Pelvis With out Contraston 02-17-2023 1. No acute findings in the chest, abdomen, or pelvis. 2. Chronic and incidental findings as above. DEEPA/mkv Workstation ID: [id number] [employer] EXAMINATION: CT CHEST ABDOMEN PELVIS WITHOUT CONTRAST [...] Musculoskeletal: No acute or suspicious osseous findings. [employer] Bridger Webb MD - 02/17/2023 EXAMINATION: CT [...] findings as above. DEEPA/abhishek Workstation ID: [id number] [facility] Radiology Study observation (narrative) [facility] CT Chest Abdomen Pelvis With out ContrastOrdered By: Bridger Webb on 02-17-2023 [facility] Work Phone: CT Head Or Brain Without Con traston 02-17-2023 1. No acute intracranial abnormality. Workstation ID: [id number] [employer] [facility] EXAMINATION: CT OF THE BRAIN. HISTORY: dizziness COMPARISON: Head CT most recently 06/11/2022 at [place] TECHNIQUE: Axial CT images were acquired from [...] Ventricles and cisternal spaces are age appropriate. [facility] Andrew Martin MD - 02/17/2023 EXAMINATION: CT OF THE BRAIN. HISTORY: dizziness COMPARISON: Head CT most recently 06/11/2022 at [place] TECHNIQUE: Axial CT images were acquired from [...] No acute intracranial abnormality. Workstation ID: [id number] [facility] Radiology Study observation (narrative) [facility] CT Head Or Brain Without Con trastOrdered By: Andrew Martin on 02-17-2023 [facility] Work Phone: Comprehensive metabolic 2000 panelon 02-17-2023 Albumin [Mass/Vol] 3.8 g/dL 3.2 - 5.2 g/dL [facility] ALP [Catalytic activity/Vol] 134 U/L 40 - 150 U/L [facility] ALT [Catalytic activity/Vol] 8 U/L 0-35 U/L [facility] Anion gap [Moles/Vol] 15 mmol/L 10 - 2 0 mmol/L [facility] AST [Catalytic activity/Vol] 9 U/L 0-35 U/L [facility] Bilirubin [Mass/Vol] 0.3 mg/dL 0.0 - 1 .3 mg/dL [facility] Calcium [Mass/Vol] 9.2 mg/dL 8.4 - 10. 2 mg/dL [facility] Chloride [Moles/Vol] 101 mmol/L 98 - 10 8 mmol/L [facility] Creatinine [Mass/Vol] 1.00 mg/dL 0.40 - 1.10 mg/dL [facility] GFR/1.73 sq M.predicted CKD-EPI (S/P/Bld) [Vol rate/Area] 71 - PINF [facility] Comment on above: Estimated GFR was ca lculated using the 2020 CKD-EPI creatinine equation. Glucose [Mass/Vol] 347 mg/dL High 65 - 99 mg/dL [facility] HCO3 [Moles/Vol] 23 mmol/L 21 - 32 mmol/L [facility] Interpretation and review of laboratory results Abnormal [facility] Potassium [Moles/Vol] 4.3 mmol/L 3.5 - 5.1 mmol/L [facility] Protein [Mass/Vol] 6.7 g/dL 6.0 - 8.0 g/dL [facility] Sodium [Moles/Vol] 135 mmol/L 135 - 145 mmol/L [facility] Urea nitrogen [Mass/Vol] 14 mg/dL 8 - 25 mg/dL [facility] Urea nitrogen/Creatinine [Mass ratio] 14.0 mg/mg 10.0 - 20.0 [facility] Labor[facility] y Services has implemented the eGFR calculation approach that does not have a coefficient for race that conforms to the NKF-ASN Task Force Recommendations. [facility] ECG 12 Leadon 02-17-2023 Interpretation and review of laboratory results Abnormal [facility] Hayde Pickering DO 02/18/2023 12:40 AM ECG 12 Lead Date/Time: 02/17/2023 9:36 PM Performed by: Hayde Pickering DO Authorized by: Hayde Pickering DO Interpreted by ED attending physician Comparison: compared with previous ECG Rhythm: sinus rhythm BPM: 96 Other findings: LELA Clinical impression: abnormal ECG MUSE [facility] Lipaseon 02-17-2023 Lipase [Catalytic activity/Vol] 35 U/L 15 - 65 U/L [facility] Lipase [Catalytic activity/V ol]on 02-17-2023 Interpretation and review of laboratory results Normal [facility] No Panel Informationon 02-17 Extra Tube Hold for add-ons. [facility] Comment on above: Auto resulted. [facility] Troponin x 2 (Now and Repeat in 3 hours)Ordered By: Zainab Echeverria on 02-17-2023 Interpretation and review of laboratory results Abnormal [facility] Troponin T 20 ng/L Critically high NINF - 14 ng/L [facility] Troponin T Interpretation Possible acute cardiac injury. [facility] UrinalysisOrdered By: Jessie Bae on 02-17-2023 Bacteria Auto Ql (U) None Seen None Se en /hpf [facility] Bilirubin Ql (U) Negative Negative [facility] th Clarity Refractometry automated (U) Hazy Abnormal Clear [facility] Color (U) Yellow Colorless, Yellow [facility] Epithelial cells.squamous Auto (Urine sed) [#/Area] 3 [facility] Glucose Auto test strip (U) [Mass/Vol] >=500 Abnormal Negative mg/dL [facility] Hemoglobin Auto test strip Ql (U) Small Abnormal Negative [facility] Hyaline casts Auto (Urine sed) [#/Area] 3-5 Abnormal [facility] Interpretation and review of laboratory results Abnormal [facility] Ketones (U) [Mass/Vol] Negative Negative mg/dL [facility] Leukocyte clumps Auto (Urine sed) [#/Area] Rare Abnormal None Seen /hpf [facility] Leukocyte esterase Auto test strip Ql (U) Negative Negative [facility] Mucus Auto (Urine sed) [#/Area] Rare None Seen, Rare /lpf [facility] Nitrite Auto test strip Ql (U) Negative Negative [facility] pH (U) 5.0 [pH] 5.0 - 7.0 [facility] Protein (U) [Mass/Vol] 100 mg/dL Abnormal Negative [facility] RBC Auto (Urine sed) [#/Area] 2 [facility] Specific gravity (U) [Rel density] 1.025 1.005 - 1.025 [facility] Urobilinogen (U) [Mass/Vol] mg/dL NINF - 2.0 mg/dL [facility] WBC Auto (Urine sed) [#/Area] 11 High [facility] Microscopic examinat ion is performed on all urinalysis samples and only positive findings are reported. The test for blood on the chemical analytic portion of urinalysis may also be positive due to hemoglobinuria and myoglobinuria and if red blood cells are present they are quantified by microscopic examination. [facility] XR Chest 1 Viewon 02-17-2023 Low lung volumes with bronchovascular crowding. No airspace consolidation. Workstation ID: [id number] [employer] EXAMINATION: XR CHEST PA/AP HISTORY: ORDERING SYSTEM [...] superior vena cava. Left-sided pacemaker device noted. [facility] Elvis Mae M D - 02/17/2023 [...] crowding. No airspace consolidation. Workstation ID: [id number] [facility] Radiology Study observation (narrative) [facility] XR Chest 1 ViewOrdered By: Bud Mae on 02-17-2023 [facility] Work Phone: Insurance Correspondence Off iceon 02-16-2023 Insurance Correspondence Office [id number]#1.00CD:12 7 Normal [facility] Coding Queryon 11-13-2022 Coding Query - From: Elisabet Ocampo RN To: [facility]; Cc: Leann Vasquez; Sent: 11/05/2022 14:53:56 EDT [...] Caller Number: H Refer to dc addendum [facility] Coding Query - From: Elisabet Ocampo RN To: [facility]; Cc: Leann Vasquez; Sent: 11/05/2022 14:50:07 EDT [...] removal of hardware by Dr. Amaro in [facility] however she was declined transfer to [place] when ED attempted to do so and [...] expected. Thank you! Elisabet [phone] From: [facility] To: Damaris ELDER, Elisabet; Sent: 11/13/2022 12:30:57 EDT Subject: RE: Coding Query Caller Name: ADDIE JEAN BAPTISTE; Caller Number: H refer to addendum Normal [facility] Insurance Correspondence Off ice11-04-2022 Insurance Correspondence Office [id number]#[id number]:12 7 Normal [facility] Discharge Instructionson Discharge Instructions [id number]#[id number]:1 27 Normal [facility] Transfer Documentson 023 Transfer Documents [id number]#[id number]:1 27 Normal [facility] Capillary Glucose POCon 10-23 Glucose [Mass/Vol] 233 mg/dL High 55-99 [facility] Comment on above: Result Comment: Peter yeh RN/ Performed By: #### 2 [id number] #### [facility] [address] [place] [address] Glucose [Mass/Vol] 162 mg/dL High 55-99 [facility] Comment on above: Result Comment: Peter SERNA Performed By: #### 2 [id number] #### [facility] [address] [place] [address] Inpatient Clinical Summaryon 11-02-2022 Inpatient Clinical Summary [address] [address] Clinical Summary Person Information: Name: ADDIE JEAN BAPTISTE Age: 47 Years : 1975 Sex: Female PCP: LAURENT FRANCO CNP Marital Status: Phone: [phone] Race: White Ethnicity: Non- or Language: Latvian Visit Id: Visit Reason: Foot pain-swelling; Skin problem; Post surgical problem; SOLO, CELLULITIS OF FOOT, SEPSIS Speciality: Acuity: Enc Type: Inpatient Med Service: Medical Arrival: 10/28/2022 17:37:45 Discharge: Dispo Type: Admitted as IP to this Hosp Address: [facility] [id number] Provider Notes: Diagnosis: 1:Sepsis; 2:Cellulitis of foot; 3:UTI (urinary tract infection); 4:Acute kidney injury superimposed on CKD; 5:Nausea with vomiting; 6:Smoker; 7:Chronic anemia; 8:Insulin dependent type 2 diabetes mellitus; 9:Congestive heart failure; 10:HTN (hypertension); 11:Hyperlipemia; 12:Hypothyroid; 13:SEMAJ (obstructive sleep apnea); 14:Seizure disorder; 15:Schizophrenia; 16:Depression; 17:RLS (restless legs syndrome); 18:Chronic GERD; 19:Morbid obesity; 20:History of MRSA infection; 21:On deep vein thrombosis (DVT) prophylaxis; 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 Dr. Jarrell aware that you were here. With: Address: When: LAURENT [address], [place] [address] [place] [address] Business (1) 11/17/2022 1:15 PM In [...] OCCURRED DURING YOUR HOSPITAL STAY New Medications [facility] 1984, [address] [facility] [place], [place] [id number], [phone] acetaminophen-oxycodone (Percocet 5 mg-325 mg oral tablet) [...] 2 time (more content not included)... Normal [facility] Interdisciplinary Note - Say e Manageron 11-02-2022 Interdisciplinary Note - Psychiatric Registered Nurse CRM spoke with patient. Patient was previous rounded on by Nory HENDERSON today and will discharge home today. No family in room. Patient is alert and oriented. Whiteboard updated and CRM contact # provided. Patient states she has a home H/H RN from [facility] that comes for wound care and will continue at discharge. She also states she does not have a ride. Discussed she can call her [employer] for a ride. CRM also updated JAEL Randall on need to call insurance for ride or if too long a wait can use shuttle. Patient denies other needs. Normal [facility] Comment on above: Result Comment: Elec tronically Signed By: Jonas ELDER, Michela\.br\Date and Time Signed: 11/02/22 09:39 EDT Monitor Recordon 11-02-2022 Monitor Record [id number]#[id number]:1 27 [facility] Monitor Record [id number]:1 27 [facility] Monitor Record [id number]#[id number]:1 27 [facility] Progress Note-Physicianon Progress Note-Physician Assessment/Plan Dr. Jarrell [phone] who is an associate of Dr. Amaro ([place]) who is the district court judge who performed this patient's foot surgery on 10/23 - would like to be updated if pt. is taken to [place] -Orthopedic team at [place] denied transfer as they do not have [...] deep vein thrombosis (DVT) prophylaxis (Z79.899: Other detention (current) drug therapy) -Hold heparin sq 2/2 [...] cap(s), Cap, Ora (more content not included)... [facility] Comment on above: Result Comment: Elec tronically [...] Locations R1: This test was performed at: [facility], [address] [place] [address], [id number] , , [facility] Comment on above: Performed By: #### 2 [id number], [id number], [id number], [id number] #### [facility] [address] [place] [address] Capillary Glucose POCon 06- 0-3 Glucose [Mass/Vol] 329 mg/dL High 55-99 [facility] Comment on above: Result Comment: Peter SERNA Performed By: #### 2 [id number] ####[facility] [address] [place] [address] Glucose [Mass/Vol] 295 mg/dL High 55-99 [facility] Comment on above: Result Comment: Peter SERNA Performed By: #### 2 [id number], [id number], [id number] #### [facility] [address] [place] [address] Glucose [Mass/Vol] 208 mg/dL High 55-99 [facility] Comment on above: Result Comment: Peter yeh RN/ Performed By: #### 2 [id number] ####[facility] [id number] [place] [address] Glucose [Mass/Vol] 156 mg/dL High 55-99 [facility] Comment on above: Result Comment: Peter yeh RN/ Performed By: #### 2 [id number], [id number], [id number], [id number] #### [facility] [address] [place] [address] L[place] 11-01-2022 Anion gap [Moles/Vol] 12 mmol/L Normal 6-16 [facility] Comment on above: Performed By: #### 2 [id number] #### [facility] [address] [place] [address] Chloride [Moles/Vol] 105 mmol/L Normal 101-111 [facility] Comment on above: Performed By: #### 2 026638 #### [facility] [address] [place] [address] CO2 [Moles/Vol] 26 mmol/L Normal 21-31 [facility] Comment on above: Performed By: #### 2 940416 #### [facility] [address] [place] [address] Potassium [Moles/Vol] 3.7 mmol/L Normal 3.5-5.3 [facility] Comment on above: Performed By: #### 2 538836 #### [facility] [address] [place] [address] Sodium [Moles/Vol] 139 mmol/L Normal 135-145 [facility] Comment on above: Performed By: #### 2 360918 #### [facility] [address] [place] [address] Monitor Recordon 11-01-2022 Monitor Record [id number]#1.00CD:1 27 Normal [facility] Monitor Record [id number]#1.00CD:1 27 Normal [facility] Monitor Record [id number]#1.00CD:1 27 Normal [facility] Monitor Record [id number]#1.00CD:1 27 Normal [facility] BMPon 10-31-2022 Anion gap [Moles/Vol] 8 mmol/L Normal 6-16 [facility] Comment on above: Performed By: #### 2 [id number] #### [facility] [address] [place] [address] Calcium [Mass/Vol] 8.8 mg/dL Low 8.9-11.1 [facility] Comment on above: Performed By: #### 2 [id number] #### [facility] [address] [place] [address] Chloride [Moles/Vol] 108 mmol/L Normal 101-111 [facility] Comment on above: Performed By: #### 2 [id number] #### [facility] [address] [place] [address] CO2 [Moles/Vol] 26 mmol/L Normal 21-31 [facility] Comment on above: Performed By: #### 2 [id number] #### [facility] [address] [place] [address] Creatinine [Mass/Vol] 1.0 mg/dL Normal 0.5-1.3 [facility] Comment on above: Performed By: #### 2 [id number] #### [facility] [address] [place] [address] Glucose [Mass/Vol] 175 mg/dL Normal 55-199 [facility] Comment on above: Result Comment: If t his glucose result represents a fasting glucose, interpretation should refer to the following reference range: 55-99 mg/dL Performed By: #### 2 [id number] #### [facility] [address] [place] [address] Potassium [Moles/Vol] 4.1 mmol/L Normal 3.5-5.3 [facility] Comment on above: Performed By: #### 2 75943917 #### [facility] [address] [place] [address] Sodium [Moles/Vol] 138 mmol/L Normal 135-145 [facility] Comment on above: Performed By: #### 2 15074033 #### [facility] [address] [place] [address] Urea nitrogen [Mass/Vol] 24 mg/dL High 5-21 [facility] Comment on above: Performed By: #### 2 [id number] #### [facility] [address] [place] [address] Urea nitrogen/Creatinine [Mass ratio] 24 No Units High 10-20 [facility] Comment on above: Performed By: #### 2 [id number] #### [facility] [address] [place] [address] CT Lower Extremity w/o Contr ast Righton [...] MD Transcribed by: JAS Technologist: ORB Normal [facility] Capillary Glucose POCon Glucose [Mass/Vol] 225 mg/dL High 55-99 [facility] Comment on above: Result Comment: Peter SERNA Performed By: #### 2 53675224 #### [facility] [address] [place] [address] Glucose [Mass/Vol] 195 mg/dL High 55-99 [facility] Comment on above: Result Comment: Peter SERNA Performed By: #### 2 96714326 #### [facility] [address] [place] [address] Glucose [Mass/Vol] 258 mg/dL High 55-99 [facility] Comment on above: Result Comment: Peter SERNA Performed By: #### 2 423705, 2991201, 6035623, 92925007 #### [facility] [address] [place] [address] Glucose [Mass/Vol] 197 mg/dL High 55-99 [facility] Comment on above: Result Comment: Peter SERNA Performed By: #### 2 52026446 ####[facility] [address] [place] [address] Consultation Noteon 11-01-19 Consultation Note Patient: BRIDGET JEAN BAPTISTE Age: 47 years Sex: Female : 1975 Associated Diagnoses: None Author: Lawrence Kim M.D History of Present Illness Patient is known to me from a previous evaluation of her left hallux in which she had superficial cultures taken from some denuded skin that had grown MRSA. She was seen at [facility] and discharged on some oral antibiotics. Apparently she had bunion surgery on the right hallux/foot years ago and recently had the hardware removed at [place]. She developed a postoperative cellulitis she therefore came to [facility] and is currently on IV antibiotics. She [...] 12 seizures a year / SNOMED CT 1230162077 / Confirmed last 2 weeks just staring spells has been 6 Abdominal pain / SNOMED CT 37443409 / Confirmed Ankle instability / SNOMED CT 4254769 / Confirmed Arthritis / SNOMED CT 8293598 / Confirmed Bipolar disorder / SNOMED CT 29098455 / Confirmed BMI 45.0-49.9, adult / SNOMED CT 1482384982 / Confirmed Pacemaker / SNOMED CT 5255202823 / Confirmed Cellulitis / SNOMED CT 912339844 / Confirmed Chronic back pain / SNOMED CT 658455989 / Confirmed Depression / SNOMED CT 761987851 / Confirmed Diabetes / SNOMED CT 121294051 / Confirmed Diabetic neuropathy / SNOMED CT 130557172 / Confirmed Diarrhea / SNOMED CT 747149435 / Confirmed Dizziness / SNOMED CT 2062323276 / Confirmed Current every day vaping / SNOMED CT 6232932305 / Confirmed Fibromyalgia / SNOMED CT 665609804 / Confirmed Gastric ulcer / SNOMED CT 1464529335 / Confirmed Chronic GERD / SNOMED CT 512826970 / Confirmed Headache / SNOMED CT 00294329 / Confirmed Hyperlipemia / SNOMED CT 14014452 / Confirmed Hypertensive heart failure / SNOMED CT 35327071 / Confirmed Hypothyroid / SNOMED CT 06870831 / Confirmed Groin pain / SNOMED CT 822272756 / Confirmed Left ankle instability / SNOMED CT 8978636028 / Confirmed Insulin pump status / SNOMED CT 0345341645 / Confirmed Lactose intolerance / SNOMED CT 1839166699 / Confirmed Kidney stones / SNOMED CT 531127244 / Confirmed Morbid obesity / SNOMED CT 160895601 / Confirmed SEMAJ (obstructive sleep apnea) / SNOMED CT 783404952 / Confirmed Pain of joint of knee / SNOMED CT 8959144363 / Confirmed Palpitations / SNOMED CT 077329961 / Confirmed Preop examination / SNOMED CT 313300042 / Confirmed Plantar fasciitis of left foot / SNOMED CT 923129876 / Confirmed Plantar fasciitis, left / SNOMED CT 658183313 / Confirmed Poly (more content not included)... Normal [facility] Comment on above: Result Comment: Elec tronically Signed By: Lawrence Kim M.D\Date and Time Signed: 10/31/22 09:20 EDT Hct & Hgbon 10-31-2022 Hematocrit (Bld) [Volume fraction] 27.2 % Low 34.0-46.0 [facility] Comment on above: Performed By: #### 2 45111160 #### [facility] [address] [place] [address] Hemoglobin (Bld) [Mass/Vol] 9.4 g/dL Low 12.0-16.0 [facility] Comment on above: Performed By: #### 2 35048603 #### [facility] [address] [place] [address] Interdisciplinary Note - Say e Manageron 10-31-2022 Interdisciplinary Note - Psychiatric Registered Nurse Pt is awake and alert in bed, [...] Contact information provided and white board updated. [facility] Comment on above: Result Comment: Elec tronically [...] daily attempts. No OT eval completed. Normal [facility] Monitor Recordon 10-31-2022 Monitor Record [id number]#1.00CD:1 27 [facility] Monitor Record [id number]#1.00CD:1 27 [facility] Outside Recordson 10-31-2022 Outside Records [id number]#1.00CD:12 7 [facility] Progress Note-Physicianon Progress Note-Physician Assessment/Plan Dr. Jarrell [phone] who is an associate of Dr. Amaro ([place]) who is the district court judge who performed this patient's foot surgery on 10/23 - would like to be updated if pt. is taken to [place] -Orthopedic team at [place] denied transfer as they do not have [...] deep vein thrombosis (DVT) prophylaxis (Z79.899: Other detention (current) drug therapy) -Hold heparin sq 2/2 [...] made to ensure accuracy, however, inadvertently computerized machine brusher mistakes may be present. Subjective No acute events overnight. Patient voices no complaints this a.m. Pt. denies CP, pressure, palpitations, N/V, SOB or paresthesia. Review of Systems Constitutional: Negative Eye: Negative. Ear/Nose/Mouth/Throat: Negative. Respiratory: Negative Cardiovascular: Negative. Gastrointestinal: Denies abd pain. Passing flatus. Last bowel movement: unknown - no BM documented since TOA, pt. states 10/29 (more content not included)... [facility] Comment on above: Result Comment: Elec tronically [...] Patient denies any questions, emotional support provided. [facility] Comment on above: Result Comment: Elec tronically Signed By: Nory BURGESS\.br\Date and Time Signed: 10/30/22 13:26 EDT\.br\Electronically Co-Signed By: Juliette PIZANO MD\.br\Date and Time Co-Signed: 10/31/22 08:19 EDT Progress Note-Physician Assessment/Plan Dr. Jarrell [phone] who is an associate of Dr. Amaro ([place]) who is the district court judge who performed this patient's foot surgery on 10/23 - would like to be updated if pt. is taken to [place] -Orthopedic team at [place] denied transfer as they do not have ID -Order for nursing to review med rec placed 1. Sepsis (A41.9: Sepsis, unspecified organism) POA 2/2 R foot cellulitis s/p sx. removal of hardware (placed in the 90's) & UTI -> resolved, -Aggressive IVF, IV Atb -Monitor closely for fl. overload -Bl. cx. - prelim - neg -See below Ordered: [facility] Care/Day Moderate 35 Minutes [address] 2. Cellulitis of foot (L03.119: Cellulitis of [...] deep vein thrombosis (DVT) prophylaxis (Z79.899: Other press tender long goods (current) drug therapy) -Hold heparin sq 2/2 [...] Routine, Star (more content not included)... Normal [facility] Comment on above: Result Comment: Elec tronically Signed By: Nory BURGESS\.br\Date and Time Signed: 10/31/22 08:04 EDT\.br\Electronically Co-Signed By: Juliette PIZANO MD\.br\Date and Time Co-Signed: 10/31/22 08:18 EDT eGFRon 10-31-2022 GFR/1.73 sq M.predicted among non-blacks MDRD (S/P/Bld) [Vol rate/Area] 71 mL/min/1.73 m2 Normal >=59 [facility] Comment on above: Order Comment: Order added by Discern Expert. Result Comment: Artificial Flower Maker odell kidney disease could be indicated at eGFR's of less than 60 mL/min/1.73m2. Kidney failure is indicated at less than 15 mL/min/1.73m2. Performed By: #### 2 [id number] #### [facility] [address] [place] [address] Auto Diffon 10-30-2022 Basophils/100 WBC (Bld) 0.7 % Normal 0.0-2.0 [facility] Comment on above: Order Comment: Order Added by Discern Expert. Performed By: #### 2 274329, 3389620, 5277095, 87421118 #### [facility] [address] [place] [address] Basophils/Leukocytes Auto (Bld) [Pure # fraction] 0.1 E9/L Normal 0.0-0.2 [facility] Comment on above: Order Comment: Order Added by Discern Expert. Performed By: #### 2 712371, 3231776, 2783506, 61620032 #### [facility] [address] [place] [address] Eosinophils/100 WBC (Bld) 2.3 % Normal 0.0-8.0 [facility] Comment on above: Order Comment: Order Added by Discern Expert. Performed By: #### 2 010844, 9110221, 6346089, 33203381 #### [facility] [address] [place] [address] Eosinophils/Leukocyte s Auto (Bld) [Pure # fraction] 0.2 E9/L Normal 0.0-0.5 [facility] Comment on above: Order Comment: Order Added by Discern Expert. Performed By: #### 2 308882, 0818039, 1949102, 36096821 #### [facility] [address] [place] [address] Lymphocytes/100 WBC (Bld) 25.8 % Normal 14.0-50.0 [facility] Comment on above: Order Comment: Order Added by Discern Expert. Performed By: #### 2 779866, 4794411, 3280471, 25080586 #### [facility] [address] [place] [address] Lymphocytes/Leukocyte s Auto (Bld) [Pure # fraction] 2.2 E9/L Normal 1.0-4.0 [facility] Comment on above: Order Comment: Order Added by Discern Expert. Performed By: #### 2 483280, 9047885, 0188606, 54857483 #### [facility] [address] [place] [address] Monocytes/100 WBC (Bld) 5.3 % Normal 4.0-14.0 [facility] Comment on above: Order Comment: Order Added by Discern Expert. Performed By: #### 2 576653, 3740838, 8151483, 73419241 #### [facility] [address] [place] [address] Monocytes/Leukocytes Auto (Bld) [Pure # fraction] 0.5 E9/L Normal 0.2-1.0 [facility] Comment on above: Order Comment: Order Added by Discern Expert. Performed By: #### 2 023567, 7942491, 9794081, 04402739 #### [facility] [address] [place] [address] Neutrophils/100 WBC (Bld) 65.9 % Normal 36.0-75.0 [facility] Comment on above: Order Comment: Order Added by Discern Expert. Performed By: #### 2 614841, 3459895, 5945261, 67637014 #### [facility] [address] [place] [address] Neutrophils/Leukocyte s Auto (Bld) [Pure # fraction] 5.7 E9/L Normal 2.0-7.5 [facility] Comment on above: Order Comment: Order Added by Discern Expert. Performed By: #### 2 136710, 1605977, 2637420, 65302618 #### [facility] [address] [place] [address] BMPon 10-30-2022 Anion gap [Moles/Vol] 7 mmol/L Normal 6-16 [facility] Comment on above: Performed By: #### 2 439104, 1478030, 0816286, 40945375 #### [facility] [address] [place] [address] Calcium [Mass/Vol] 8.4 mg/dL Low 8.9-11.1 [facility] Comment on above: Performed By: #### 2 706193, 1891525, 4911779, 53067307 #### [facility] [address] [place] [address] Chloride [Moles/Vol] 109 mmol/L Normal 101-111 [facility] Comment on above: Performed By: #### 2 306246, 2557919, 1911796, 55346809 #### [facility] [address] [place] [address] CO2 [Moles/Vol] 25 mmol/L Normal 21-31 [facility] Comment on above: Performed By: #### 2 535163, 7118153, 4538569, 57679388 #### [facility] [address] [place] [address] Creatinine [Mass/Vol] 1.2 mg/dL Normal 0.5-1.3 [facility] Comment on above: Performed By: #### 2 477105, 4727689, 0643556, 84047331 #### [facility] [address] [place] [address] Glucose [Mass/Vol] 236 mg/dL High 55-199 [facility] Comment on above: Result Comment: If t his glucose result represents a fasting glucose, interpretation should refer to the following reference range: 55-99 mg/dL Performed By: #### 2 481985, 4601236, 7351752, 45390306 #### [facility] [address] [place] [address] Potassium [Moles/Vol] 4.6 mmol/L Normal 3.5-5.3 [facility] Comment on above: Performed By: #### 2 949728, 8033582, 5058219, 00612236 #### [facility] [address] [place] [address] Sodium [Moles/Vol] 136 mmol/L Normal 135-145 [facility] Comment on above: Performed By: #### 2 431094, 8566378, 1221369, 73275805 #### [facility] [address] [place] [address] Urea nitrogen [Mass/Vol] 32 mg/dL High 5-21 [facility] Comment on above: Performed By: #### 2 378408, 8009143, 2397486, 96325983 #### [facility] [address] [place] [address] Urea nitrogen/Creatinine [Mass ratio] 27 No Units High 10-20 [facility] Comment on above: Performed By: #### 2 692774, 4003743, 4793679, 93989352 #### [facility] [address] [place] [address] CBC w/ Auto Diffon 3 Erythrocyte distribution width (RBC) [Ratio] 12.7 % Normal 10.9-14.2 [facility] Comment on above: Performed By: #### 2 586731, 2516302, 1724305, 53838575 #### [facility] [address] [place] [address] Hematocrit (Bld) [Volume fraction] 26.0 % Low 34.0-46.0 [facility] Comment on above: Performed By: #### 2 657530, 2942172, 7660524, 94011486 #### [facility] [address] [place] [address] Hemoglobin (Bld) [Mass/Vol] 8.9 g/dL Low 12.0-16.0 [facility] Comment on above: Performed By: #### 2 276718, 0089733, 4217129, 30330757 #### [facility] [address] [place] [address] MCH (RBC) [Entitic mass] 30.3 pg Normal 27.0-34.0 [facility] Comment on above: Performed By: #### 2 907067, 7430052, 2499403, 69576902 #### [facility] [address] [place] [address] MCHC (RBC) [Mass/Vol] 34.1 g/dL Normal 31.4-36.0 [facility] Comment on above: Performed By: #### 2 209637, 3224452, 2958240, 06822180 #### [facility] [address] [place] [address] MCV (RBC) [Entitic vol] 88.9 fL Normal 80.0-100.0 [facility] Comment on above: Performed By: #### 2 420770, 1833615, 1056497, 16452222 #### [facility] [address] [place] [address] Platelet mean volume (Bld) [Entitic vol] 7.8 fL Normal 6.4-10.8 [facility] Comment on above: Performed By: #### 2 599760, 6320097, 3434416, 10503145 #### [facility] [address] [place] [address] Platelets (Bld) [#/Vol] 420.0 E9/L Normal 150.0-500.0 [facility] Comment on above: Performed By: #### 2 535871, 9223140, 8739439, 79355652 #### [facility] [address] [place] [address] RBC (Bld) [#/Vol] 2.9 E12/L Low 4.3-5.9 [facility] Comment on above: Performed By: #### 2 560146, 7713387, 4130603, 69500535 #### [facility] [address] [place] [address] WBC corrected for nucl RBC Auto (Bld) [#/Vol] 8.6 E9/L Normal 4.0-11.0 [facility] Comment on above: Performed By: #### 2 841555, 6506073, 3605683, 59222323 #### [facility] [address] [place] [address] Capillary Glucose POCon 060 Glucose [Mass/Vol] 211 mg/dL High 55-99 [facility] Comment on above: Result Comment: Peter yeh RN/ Performed By: #### 2 556926, 7539229, 3564813, 30847855 #### [facility] [address] [place] [address] Glucose [Mass/Vol] 212 mg/dL High 55-99 [facility] Comment on above: Result Comment: Peter yeh RN/ Performed By: #### 2 926215, 0854852, 4960512, 08259870 #### [facility] [address] [place] [address] Glucose [Mass/Vol] 260 mg/dL High 55-99 [facility] Comment on above: Result Comment: Peter yeh RN/ Performed By: #### 2 35277282 ####[facility] [address] [place] [address] Glucose [Mass/Vol] 247 mg/dL High 55-[address] [place] [address] Comment on above: Result Comment: Peter SERNA Performed By: #### 2 17627504 ####[facility] [address] [place] [address] Glucose [Mass/Vol] 242 mg/dL High 55-[address] [place] [address] Comment on above: Performed By: #### 2 137270, 4549826, 5445386, 60551075 #### [facility] [address] [place] [address] Discharge Note-Nursingon Discharge Note-Nursing per BEATRIZ Cueto request, I responded to patients room to discuss her abdominal xray and treatment that GREEN CHAIN OFFBEARER wanted to provide. I informed her that her xray showed she was full of stool and it is likely what is causing her nausea and vomiting. GREEN CHAIN OFFBEARER wants her to take Miralax (refused earlier today) or a suppository to help relive the constipation. Patient refused both treatment options at this time. Will continued to monitor. Normal [facility] Ferritinon 10-30-2022 Ferritin [Mass/Vol] 36 ng/mL Normal 11-307 [facility] Comment on above: Result Comment: NORM ALS MEN <30 YRS 16-132 ng/mL MEN >30 YRS 8-338 ng/mL WOMEN (PREMEN) 6-104 ng/mL WOMEN (POSTMEN) 12-210 ng/mL Performed By: #### 2 236246, 7795119, 3710225, 04325236 #### [facility] [address] [place] [address] Folateon 10-30-2022 Folate [Mass/Vol] 15.0 ng/mL Normal >=6.7 [facility] Comment on above: Performed By: #### 2 226886, 2117012, 0112911, 93584865 #### [facility] [address] [place] [address] Interdisciplinary Note - Say e Manageron 10-30-2022 Interdisciplinary Note - Psychiatric Registered Nurse Pt is awake in bed, states does not want to be bothered at this time, no family present. Await Podiatry to see and pending therapy andreasals, Nupur following for needs. Normal [facility] Comment on above: Result Comment: Elec tronically Signed By: Taniya ELDER, Michi\.br\Date and Time Signed: 10/30/22 09:28 EDT Interdisciplinary Note - Roberta n 10-30-2022 Interdisciplinary Note - OT 10/30: OT eval attempted, Pt refuses. Will try again tomorrow. Normal [facility] Interdisciplinary Note - PTo n 10-30-2022 Interdisciplinary Note - PT Attempted, but pt refused due to illness. Will also hold an await Podiatry consult with their recommendations prior to beginning Normal [facility] Ironon 10-30-2022 Iron [Mass/Vol] 47 microgram/dL Normal 35-153 [facility] Comment on above: Performed By: #### 2 882149, 1223776, 9484080, 28820622 #### [facility] [address] [place] [address] LDHon 10-30-2022 LDH [Catalytic activity/Vol] 119 Int._Unit/L Normal 93-218 [facility] Comment on above: Performed By: #### 2 572558, 8224877, 7213310, 07259722 #### [facility] [address] [place] [address] Monitor Recordon 10-30-2022 Monitor Record [id number]#1.00CD:1 27 Normal [facility] Monitor Record [id number]#[id number]:1 27 Normal [facility] Patient Education - Texton 0 10-30-2022 Patient Education - Text Normal [facility] Progress Note-Nurseon 2022 Progress Note-Nurse Patient reported she wanted to leave AMA. Nory, SENIOR [employer]GNOS DEVELOPER bedside, discussed risks and benefits of leaving A up to and including and dismemberment. Patient acknowledged same and decided to stay at this time. Normal [facility] Retic Counton 10-30-2022 Reticulocytes/100 RBC (Bld) 1.7 % High 0.5-1.5 [facility] Comment on above: Result Comment: This Reticulocyte Count Has Been Corrected For Anemia Performed By: #### 2 024292, 4524753, 6564661, 84020430 #### [facility] [address] [place] [address] TIBC Calculatedon 10-30-2022 Iron binding capacity [Mass/Vol] 258 microgram/dL Normal 250-400 [facility] Comment on above: Performed By: #### 2 715500, 9508064, 1803132, 75067952 #### [facility] [address] [place] [address] Transferrin [Mass/Vol] 184 mg/dL Low 200-370 [facility] Comment on above: Performed By: #### 2 173861, 6347923, 3198076, 92287623 #### [facility] [address] [place] [address] UA With Cult Reflexon 2022 Bacteria LM Ql (Urine sed) 3+ /HPF Abnormal Trace [facility] Comment on above: Performed By: #### 2 720466, 3040981, 7583274, 21113407 #### [facility] [address] [place] [address] Bilirubin Ql (U) Negative Normal Negative [facility] Comment on above: Performed By: #### 2 888249, 0824432, 4824206, [id number] #### [facility] [address] [place] [address] Clarity (U) CLOUDY Abnormal Clear [facility] Comment on above: Performed By: #### 2 446763, 4912119, 6650053, 04198107 #### [facility] [address] [place] [address] Color (U) YELLOW Normal Yellow [facility] Comment on above: Performed By: #### 2 411021, 3359033, 2906631, 18632694 #### [facility] [address] [place] [address] Epithelial cells.squamous LM.HPF (Urine sed) [#/Area] 0-2 Normal 0-2 [facility] Comment on above: Performed By: #### 2 373378, 0161426, 4441435, 27765537 #### [facility] [address] [place] [address] Glucose Test strip (U) [Mass/Vol] TRACE Abnormal Negative [facility] Comment on above: Performed By: #### 2 397421, 0608868, 1510157, 66979451 #### [facility] [address] [place] [address] Hemoglobin Ql (U) TRACE Abnormal Negative [facility] Comment on above: Performed By: #### 2 827845, 3797756, 8821755, 54524729 #### [facility] [address] [place] [address] Ketones (U) [Mass/Vol] Negative Normal Negative [facility] Comment on above: Performed By: #### 2 149373, 3592945, 9968544, 07980800 #### [facility] [address] [place] [address] Powers.plasma/Lithiu m.RBC (Bld) [Mass ratio] 4-20 Normal 0-3 [facility] Comment on above: Performed By: #### 2 226134, 6682194, 0836527, 54034923 #### [facility] [address] [place] [address] Mucus Ql (Urine sed) TRACE Normal [facility] Comment on above: Performed By: #### 2 222064, 8810498, 1518368, 82204403 #### [facility] [address] [place] [address] Nitrite Ql (U) Negative Normal Negative [facility] Comment on above: Performed By: #### 2 096928, 8117762, 1375499, 60964234 #### [facility] [address] [place] [address] pH (U) 6.0 [pH] Invalid Interpretation Code 5.0-9.0 [facility] Comment on above: Performed By: #### 2 921916, 4933395, 8733961, 47271197 #### [facility] [address] [place] [address] Protein (U) [Mass/Vol] Negative Normal Negative [facility] Comment on above: Performed By: #### 2 005210, 9272246, 9698363, 30871537 #### [facility] [address] [place] [address] Specific gravity (U) [Rel density] 1.025 Invalid Interpretation Code 1.005-1.030 [facility] Comment on above: Performed By: #### 2 877950, 4287488, 1575259, 90357927 #### [facility] [address] [place] [address] Type of Urine collection method Clean Catch Normal [facility] Comment on above: Performed By: #### 2 069500, 1320188, 7515516, 74044032 #### [facility] [address] [place] [address] Urobilinogen Qn (U) 0.2 {Sheyla'U}/dL Normal 0.0-1.0 [facility] Comment on above: Performed By: #### 2 217824, 9877852, 6530914, 42293647 #### [facility] [address] [place] [address] WBC Auto Ql (U) 1+ Abnormal Negative [facility] Comment on above: Performed By: #### 2 071125, 2513462, 4095208, 92719259 #### [facility] [address] [place] [address] WBC LM.HPF (Urine sed) [#/Area] /[HPF] Abnormal 0-5 [facility] Comment on above: Performed By: #### 2 915246, 9808107, 1289674, 70284525 #### [facility] [address] [place] [address] Vit B12on 10-30-2022 Cobalamin (Vitamin B12) [Mass/Vol] 97 pg/mL Normal 50-1500 [facility] Comment on above: Performed By: #### 2 039662, 6630229, 3658300, 05632435 #### [facility] [address] [place] [address] XR Abdomen 1 Viewon 10-31-19 23 XR [...] mGy = na DAP = na Normal [facility] eGFRon 10-30-2022 GFR/1.73 sq M.predicted among non-blacks MDRD (S/P/Bld) [Vol rate/Area] 57 mL/min/1.73 m2 Low >=59 [facility] Comment on above: Order Comment: Order added by Discern Expert. Result Comment: Artificial Flower Maker odell kidney disease could be indicated at eGFR's of less than 60 mL/min/1.73m2. Kidney failure is indicated at less than 15 mL/min/1.73m2. Performed By: #### 2 033580, 8128331, 3982231, 59506462 #### [facility] [address] [place] [address] Auto Diffon 10-29-2022 Basophils/100 WBC (Bld) 0.7 % Normal 0.0-2.0 [facility] Comment on above: Order Comment: Order Added by Abena Expert. Performed By: #### 2 480544, 4730625, 4180062, 80929274 ####[facility] [address] [place] [address] Basophils/Leukocytes Auto (Bld) [Pure # fraction] 0.1 E9/L Normal 0.0-0.2 [facility] Comment on above: Order Comment: Order Added by Discern Expert. Performed By: #### 2 654246, 6821242, 6265913, 68982447 ####[facility] [address] [place] [address] Eosinophils/100 WBC (Bld) 2.2 % Normal 0.0-8.0 [facility] Comment on above: Order Comment: Order Added by Discern Expert. Performed By: #### 2 518168, 2903660, 3361728, 34008112 ####[facility] [address] [place] [address] Eosinophils/Leukocyte s Auto (Bld) [Pure # fraction] 0.2 E9/L Normal 0.0-0.5 [facility] Comment on above: Order Comment: Order Added by Discern Expert. Performed By: #### 2 376617, 7577635, 8034268, 47110011 ####[address] [place] [address] Lymphocytes/100 WBC (Bld) 24.1 % Normal 14.0-50.0 [facility] Comment on above: Order Comment: Order Added by Discern Expert. Performed By: #### 2 997271, 6357400, 9530343, 81149019 ####[address] [address] Lymphocytes/Leukocyte s Auto (Bld) [Pure # fraction] 2.6 E9/L Normal 1.0-4.0 [facility] Comment on above: Order Comment: Order Added by Discern Expert. Performed By: #### 2 280062, 5930505, 9205015, 97907111 ####[address] [address] Monocytes/100 WBC (Bld) 6.5 % Normal 4.0-14.0 [facility] Comment on above: Order Comment: Order Added by Discern Expert. Performed By: #### 2 399518, 9012185, 5097393, 20955155 ####[address] [address] Monocytes/Leukocytes Auto (Bld) [Pure # fraction] 0.7 E9/L Normal 0.2-1.0 [facility] Comment on above: Order Comment: Order Added by Abena Expert. Performed By: #### 2 193279, 4692587, 9205871, 91407844 ####[address] [address] Neutrophils/100 WBC (Bld) 66.5 % Normal 36.0-75.0 [facility] Comment on above: Order Comment: Order Added by Discern Expert. Performed By: #### 2 432256, 6499710, 2331796, 65628300 ####[address] [place] [address] Neutrophils/Leukocyte s Auto (Bld) [Pure # fraction] 7.1 E9/L Normal 2.0-7.5 [facility] Comment on above: Order Comment: Order Added by Discern Expert. Performed By: #### 2 858153, 3040824, 7991264, 53592719 ####[facility] [address] [place] [address] BMPon 10-29-2022 Anion gap [Moles/Vol] 12 mmol/L Normal 6-16 [facility] Comment on above: Order Comment: pt thibodeaux s a line and per phleb Joyeli line packet was given to nursing staff [facility] 10/29/2022 08:38:27 EDT Performed By: #### 2 643116, 1144873, 3291543, 31909749 ####[facility] [address] [place] [address] Calcium [Mass/Vol] 8.5 mg/dL Low 8.9-11.1 [facility] Comment on above: Order Comment: pt thibodeaux s a line and per phleb Joyeli line packet was given to nursing staff [facility] 10/29/2022 08:38:27 EDT Performed By: #### 2 755610, 9042893, 8385417, 07815299 ####[facility] [address] [place] [address] Chloride [Moles/Vol] 104 mmol/L Normal 101-111 [facility] Comment on above: Order Comment: pt thibodeaux s a line and per phleb Joyeli line packet was given to nursing staff [facility] 10/29/2022 08:38:27 EDT Performed By: #### 2 515414, 4243317, 9797966, 42744679 ####[facility] [address] [place] [address] CO2 [Moles/Vol] 26 mmol/L Normal 21-31 [facility] Comment on above: Order Comment: pt thibodeaux s a line and per phleb Joyeli line packet was given to nursing staff [facility] 10/29/2022 08:38:27 EDT Performed By: #### 2 097421, 3833555, 6403469, 69164481 ####[facility] [address] [place] [address] Creatinine [Mass/Vol] 1.6 mg/dL High 0.5-1.3 [facility] Comment on above: Order Comment: pt thibodeaux s a line and per phleb Joyeli line packet was given to nursing staff [facility] 10/29/2022 08:38:27 EDT Performed By: #### 2 912918, 0987455, 9732386, 03983375 ####[facility] [address] [place] [address] Glucose [Mass/Vol] 219 mg/dL High 55-199 [facility] Comment on above: Order Comment: pt thibodeaux s a line and per phleb Joyeli line packet was given to nursing staff [facility] 10/29/2022 08:38:27 EDT Result Comment: If t his glucose result represents a fasting glucose, interpretation should refer to the following reference range: 55-99 mg/dL Performed By: #### 2 641221, 5067901, 0822713, 98132910 ####[facility] [address] [place] [address] Potassium [Moles/Vol] 4.6 mmol/L Normal 3.5-5.3 [facility] Comment on above: Order Comment: pt thibodeaux s a line and per phleb Joyeli line packet was given to nursing staff [facility] 10/29/2022 08:38:27 EDT Performed By: #### 2 175754, 9496988, 1589153, 24147821 ####[facility] [address] [place] [address] Sodium [Moles/Vol] 137 mmol/L Normal 135-145 [facility] Comment on above: Order Comment: pt thibodeaux s a line and per phleb Joyeli line packet was given to nursing staff [facility] 10/29/2022 08:38:27 EDT Performed By: #### 2 421242, 2615231, 0502149, 92823811 ####[facility] [address] [place] [address] Urea nitrogen [Mass/Vol] 41 mg/dL High 5-21 [facility] Comment on above: Order Comment: pt thibodeaux s a line and per phleb Joyeli line packet was given to nursing staff [id number] 10/29/2022 08:38:27 EDT Performed By: #### 2 963562, 6100129, 1111468, 44950526 ####[facility] [address] [place] [address] Urea nitrogen/Creatinine [Mass ratio] 26 No Units High 10-20 [facility] Comment on above: Order Comment: pt thibodeaux s a line and per phleb Joyeli line packet was given to nursing staff [id number] 10/29/2022 08:38:27 EDT Performed By: #### 2 715094, 1258066, 6855042, 17553308 ####[facility] [address] [place] [address] CBC w/ Auto Diffon Erythrocyte distribution width (RBC) [Ratio] 12.7 % Normal 10.9-14.2 [facility] Comment on above: Performed By: #### 2 377137, 1810156, 6093828, 53670329 ####[facility] [address] [place] [address] Hematocrit (Bld) [Volume fraction] 31.1 % Low 34.0-46.0 [facility] Comment on above: Performed By: #### 2 009494, 7861939, 2833022, 18283908 ####[address] [address] Hemoglobin (Bld) [Mass/Vol] 10.3 g/dL Low 12.0-16.0 [facility] Comment on above: Performed By: #### 2 947646, 0351124, 2477054, 06056916 ####[facility] [address] [place] [address] MCH (RBC) [Entitic mass] 29.9 pg Normal 27.0-34.0 [facility] Comment on above: Performed By: #### 2 104161, 4482730, 0624300, 19645006 ####[address] [address] MCHC (RBC) [Mass/Vol] 33.1 g/dL Normal 31.4-36.0 [facility] Comment on above: Performed By: #### 2 722302, 4547425, 5838080, 08948189 ####[facility] [address] [place] [address] MCV (RBC) [Entitic vol] 90.2 fL Normal 80.0-100.0 [facility] Comment on above: Performed By: #### 2 641228, 2411920, 0156346, 25195051 ####[facility] [address] [place] [address] Platelet mean volume (Bld) [Entitic vol] 7.3 fL Normal 6.4-10.8 [facility] Comment on above: Performed By: #### 2 249545, 0861675, 3462936, 44773639 ####[address] [address] Platelets (Bld) [#/Vol] 480.0 E9/L Normal 150.0-500.0 [facility] Comment on above: Performed By: #### 2 769406, 5819868, 1830767, 40636262 ####[address] [address] RBC (Bld) [#/Vol] 3.4 E12/L Low 4.3-5.9 [facility] Comment on above: Performed By: #### 2 957965, 5466026, 0664164, 86458714 ####[address] [address] WBC corrected for nucl RBC Auto (Bld) [#/Vol] 10.7 E9/L Normal 4.0-11.0 [facility] Comment on above: Performed By: #### 2 040383, 5842591, 8851623, 92305062 ####[address] [address] Capillary Glucose POCon 06-0 Glucose [Mass/Vol] 205 mg/dL High 55-99 [facility] Comment on above: Result Comment: Peter yeh RN/ Performed By: #### 2 24397662 ####[facility] [address] [place] [address] Glucose [Mass/Vol] 267 mg/dL High 55-99 [facility] Comment on above: Result Comment: Peter yeh RN/ Performed By: #### 2 702703, 9297387, 7082580, 34101667 #### [facility] [address] [place] [address] Glucose [Mass/Vol] 201 mg/dL High 55-99 [facility] Comment on above: Result Comment: Peter yeh RN/ Performed By: #### 2 58708345 ####[facility] [address] [place] [address] Glucose [Mass/Vol] 257 mg/dL High 55-99 [facility] Comment on above: Result Comment: Peter yeh RN/ Performed By: #### 2 248588, 6445375, 9905927, 99839021 #### [facility] [address] [place] [address] [facility] [facility] Education Videoon [facility] Education Video Yes Patient Avoiding Infections in the Hospital [facility] Insurance Correspondence Off iceon 10-29-2022 Insurance Correspondence Office [id number]#[id number]:1 27 [facility] Interdisciplinary Note - Say e Manageron 10-29-2022 Interdisciplinary Note - Psychiatric Registered Nurse Pt is awake and alert in bed, previously rounded with Yarely [employer]IOR [employer] DEVELOPER. pt is from home with daughter and she or Boyfriend will transport at DC. Inpatient status reviewed, Pending therapy evals. Pt had ankle surgery in [place] on . Podiatry and wound and ID to see. Pt is aware of plan to stay in hospital for several days, Inpatient status reviewed. Declines any concerns or DC needs. CRM following . PCP verified and insurance information reviewed and DME discussed. Contact information provided and white board updated. Normal [facility] Comment on above: Result Comment: Elec tronically Signed By: Taniya ELDER, Michi\bryant\Date and Time Signed: 10/29/22 09:10 EDT Interdisciplinary Note - Gorge ivey 10-29-2022 Interdisciplinary Note - Nursing Wound consult completed, no open areas noted. Yarely Elizondo SENIOR COGNOS DEVELOPER in room during assessment. Agreed with no open areas. R foot surgical wound noted. Sutures intact. Incision line well approximated. Noted on Left great toe and left heel, scabbing. No open areas, no drainage. Normal [facility] Interdisciplinary Note - Roberta n 10-29-2022 Interdisciplinary Note - OT 10/29: OT orders received, chart reviewed. Holding OT eval this date pending podiatry consult and WB status of R LE. Will check back tomorrow. Normal [facility] Monitor Recordon 10-29-2022 Monitor Record [id number]#[id number]:1 27 Normal [facility] Monitor Record [id number]#[id number]:1 27 Normal [facility] Progress Note-Nurseon 2022 Progress Note-Nurse RN called [facility] regarding patient's evening quetiapine dose of 800 mg to clarify before giving as it is a large dose. Dannielle confirmed dose is okay to give as this is patient's home dose and it is a recent prescription. Normal [facility] Progress Note-Physicianon Progress Note-Physician Patient seen at bedside sitting up in bed this morning. Patient with significant erythema with warmness to top of right foot. Her sutures are dry and intact. Complains of pain to site. No drainage is noted. Patient denies any fevers, chills, chest pain, shortness of breath. He did receive a phone call from Dr. Jarrell [phone] who is an associate of Dr. Amaro who is the district court judge who performed this patient's foot surgery on [...] age, normal judgement, normal psychiatric thoughts Normal [facility] Comment on above: Result Comment: Elec tronically Signed By: Valeri HICKEY\.br\Date and Time Signed: 10/29/22 11:07 EDT\.br\Electronically Co-Signed By: Juliette PIZANO MD\.br\Date and Time Co-Signed: 10/29/22 11:51 EDT eGFRon 10-29-2022 GFR/1.73 sq M.predicted among non-blacks MDRD (S/P/Bld) [Vol rate/Area] 40 mL/min/1.73 m2 Low >=59 [facility] Comment on above: Order Comment: Order added by Discern Expert. Result Comment: Artificial Flower Maker odell kidney disease could be indicated at eGFR's of less than 60 mL/min/1.73m2. Kidney failure is indicated at less than 15 mL/min/1.73m2. Performed By: #### 2 958244, 1348938, 3603689, 22795126 ####[facility] [address] [place] [address] Auto Diffon 10-28-2022 Basophils/100 WBC (Bld) 0.6 % Normal 0.0-2.0 [facility] Comment on above: Order Comment: Order Added by Discern Expert. Performed By: #### 2 [id number] #### [facility] [address] [place] [address] Basophils/Leukocytes Auto (Bld) [Pure # fraction] 0.1 E9/L Normal 0.0-0.2 [facility] Comment on above: Order Comment: Order Added by Discern Expert. Performed By: #### 2 01054562 #### [facility] [address] [place] [address] Eosinophils/100 WBC (Bld) 1.4 % Normal 0.0-8.0 [facility] Comment on above: Order Comment: Order Added by Discern Expert. Performed By: #### 2 06910421 #### [facility] [address] [place] [address] Eosinophils/Leukocyte s Auto (Bld) [Pure # fraction] 0.2 E9/L Normal 0.0-0.5 [facility] Comment on above: Order Comment: Order Added by Discern Expert. Performed By: #### 2 12448338 #### [facility] [address] [place] [address] Lymphocytes/100 WBC (Bld) 14.1 % Normal 14.0-50.0 [facility] Comment on above: Order Comment: Order Added by Discern Expert. Performed By: #### 2 01658258 #### [facility] [address] [place] [address] Lymphocytes/Leukocyte s Auto (Bld) [Pure # fraction] 1.9 E9/L Normal 1.0-4.0 [facility] Comment on above: Order Comment: Order Added by Discern Expert. Performed By: #### 2 [id number] #### [facility] [address] [place] [address] Monocytes/100 WBC (Bld) 4.1 % Normal 4.0-14.0 [facility] Comment on above: Order Comment: Order Added by Discern Expert. Performed By: #### 2 93931628 #### [facility] [address] [place] [address] Monocytes/Leukocytes Auto (Bld) [Pure # fraction] 0.6 E9/L Normal 0.2-1.0 [facility] Comment on above: Order Comment: Order Added by Discern Expert. Performed By: #### 2 19226130 #### [facility] [address] [place] [address] Neutrophils/100 WBC (Bld) 79.8 % High 36.0-75.0 [facility] Comment on above: Order Comment: Order Added by Discern Expert. Performed By: #### 2 72184150 #### [facility] [address] [place] [address] Neutrophils/Leukocyte s Auto (Bld) [Pure # fraction] 10.8 E9/L High 2.0-7.5 [facility] Comment on above: Order Comment: Order Added by Discern Expert. Performed By: #### 2 14679472 #### [facility] [address] [place] [address] CBC w/ Auto Diffon 3 Erythrocyte distribution width (RBC) [Ratio] 12.8 % Normal 10.9-14.2 [facility] Comment on above: Performed By: #### 2 38829748 #### [facility] [address] [place] [address] Hematocrit (Bld) [Volume fraction] 34.7 % Normal 34.0-46.0 [facility] Comment on above: Performed By: #### 2 [id number] #### [facility] [address] [place] [address] Hemoglobin (Bld) [Mass/Vol] 11.6 g/dL Low 12.0-16.0 [facility] Comment on above: Performed By: #### 2 66365333 #### [facility] [address] [place] [address] MCH (RBC) [Entitic mass] 29.7 pg Normal 27.0-34.0 [facility] Comment on above: Performed By: #### 2 66366484 #### [facility] [address] [place] [address] MCHC (RBC) [Mass/Vol] 33.3 g/dL Normal 31.4-36.0 [facility] Comment on above: Performed By: #### 2 36993663 #### [facility] [address] [place] [address] MCV (RBC) [Entitic vol] 89.0 fL Normal 80.0-100.0 [facility] Comment on above: Performed By: #### 2 32833700 #### [facility] [address] [place] [address] Platelet mean volume (Bld) [Entitic vol] 7.9 fL Normal 6.4-10.8 [facility] Comment on above: Performed By: #### 2 71829453 #### [facility] [address] [place] [address] Platelets (Bld) [#/Vol] 458.0 E9/L Normal 150.0-500.0 [facility] Comment on above: Result Comment: Slid e reviewed by ts Unable to obtain accurate platelet count due to platelet clumping. Platelet count estimate appears increased on slide.. Performed By: #### 2 [id number] #### [facility] [address] [place] [address] RBC (Bld) [#/Vol] 3.9 E12/L Low 4.3-5.9 [facility] Comment on above: Performed By: #### 2 [id number] #### [facility] [address] [place] [address] WBC corrected for nucl RBC Auto (Bld) [#/Vol] 13.5 E9/L High 4.0-11.0 [facility] Comment on above: Performed By: #### 2 18226124 #### [facility] [address] [place] [address] CMPon 10-28-2022 Albumin [Mass/Vol] 3.4 g/dL Normal 3.3-5.0 [facility] Comment on above: Performed By: #### 2 02909189 #### [facility] [address] [place] [address] Albumin/Globulin (S) [Mass conc ratio] 0.8 Low 1.1-2.2 [facility] Comment on above: Performed By: #### 2 [id number] #### [facility] [address] [place] [address] ALP [Catalytic activity/Vol] 130 Int._Unit/L High 21-98 [facility] Comment on above: Performed By: #### 2 [id number] #### [facility] [address] [place] [address] ALT No additional P-5'-P [Catalytic activity/Vol] 15 Int._Unit/L Normal 6-46 [facility] Comment on above: Performed By: #### 2 75054107 #### [facility] [address] [place] [address] AST [Catalytic activity/Vol] 12 Int._Unit/L Normal 5-43 [facility] Comment on above: Performed By: #### 2 [id number] #### [facility] [address] [place] [address] Bilirubin [Mass/Vol] 0.4 mg/dL Normal 0.0-1.1 [facility] Comment on above: Performed By: #### 2 72718770 #### [facility] [address] [place] [address] Creatinine [Mass/Vol] 1.7 mg/dL High 0.5-1.3 [facility] Comment on above: Performed By: #### 2 [id number] #### [facility] [address] [place] [address] Globulin (S) [Mass/Vol] 4.5 g/dL High 1.4-4.0 [facility] Comment on above: Performed By: #### 2 [id number] #### [facility] Laboratory [address] [place] [address] Protein [Mass/Vol] 7.9 g/dL High 6.0-7.8 [facility] Comment on above: Performed By: #### 2 [id number] #### [facility] Laboratory [address] [place] [address] Urea nitrogen [Mass/Vol] 29 mg/dL High 5-21 [facility] Comment on above: Performed By: #### 2 [id number] #### [facility] Laboratory [address] [place] [address] Urea nitrogen/Creatinine [Mass ratio] 17 No Units Normal 10-20 [facility] Comment on above: Performed By: #### 2 [id number] #### [facility] Laboratory [address] [place] [address] Anion gap [Moles/Vol] 17 mmol/L High 6-16 [facility] Comment on above: Performed By: #### 2 [id number] #### [facility] Laboratory [address] [place] [address] Calcium [Mass/Vol] 8.8 mg/dL Low 8.9-11.1 [facility] Comment on above: Performed By: #### 2 [id number] #### [facility] Laboratory [address] [place] [address] Chloride [Moles/Vol] 96 mmol/L Low 101-111 [facility] Comment on above: Performed By: #### 2 [id number] #### [facility] Laboratory [address] [place] [address] CO2 [Moles/Vol] 25 mmol/L Normal 21-31 [facility] Comment on above: Performed By: #### 2 [id number] #### [facility] Laboratory [address] [place] [address] Glucose [Mass/Vol] 354 mg/dL High 55-199 [facility] Comment on above: Result Comment: If t his glucose result represents a fasting glucose, interpretation should refer to the following reference range: 55-99 mg/dL Performed By: #### 2 [id number] #### [facility] Laboratory [address] [place] [address] Potassium [Moles/Vol] 3.7 mmol/L Normal 3.5-5.3 [facility] Comment on above: Performed By: #### 2 [id number] #### [facility] Laboratory [address] [place] [address] Sodium [Moles/Vol] 134 mmol/L Low 135-145 [facility] Comment on above: Performed By: #### 2 [id number] #### [facility] Laboratory [address] [place] [address] Consent for Treatmenton 0 Consent for Treatment [id number]:1 [id number] Normal [facility] ED Clinical Summaryon 2022 ED Clinical Summary (Inserted Image. Anna ble to display) [address] [address] ED Clinical Summary Person Information Name: ORGAN, ADDIE J Laura/[facility] Age: 47 Years : 1975 Sex: Female Language: Latvian PCP: LAURENT FRANCO CNP Marital Status: Phone: [phone] Visit Id: Visit Reason: Foot pain-swelling; Skin problem; Post surgical problem; INFECTION Speciality: Acuity: 3 Enc Type: Observation Med Service: Emergency Arrival: 10/28/2022 17:37:45 Discharge: LOS: 000 05:18 Checkin: 10/28/2022 17:37:45 Checkout: 10/28/2022 22:55:17 Dispo Type: Admitted as IP to this [facility] EVENTS: Event Name Event Status Request Date/Time [...] 10/28/2022 22:55:17 10/28/2022 22:55:17 10/28/2022 22:55:17 ADDRESS: [address] [place] [phone] PHYS DOC NOTES: MEDICAL INFORMATION: Prescriptions Given: [...] kidney injury); Cellulitis of foot; Sepsis Normal [facility] ED Note-Physicianon 10-29-19 ED Note-Physician Patient was signed o ut to me by the outgoing physician. She presented to the ED for concerns of possible infection of the right foot which she had an operation on at [facility] last week. At time of signout she [...] operation and her orthopedic surgeon are at [facility] we attempted to have her transferred to [facility] for further care. I was informed that the hospitalist at [facility] had spoken to the orthopedic fellow Dr. Mcneal and after their conversation they declined the transfer of the patient due to not having infectious disease on-call at their facility. We attempted to reach back out to Dr. Mcneal or Dr. Amaro to discuss this as it is a localized infection to their postoperative site. Dr. Mcneal called our recovery unit operator back and told her that he had [...] case with the hospitalist on-call here at [facility] and they accepted the patient into their care for further medical treatment and possible reevaluation of future transfer for evaluation by orthopedic surgeon. Dismal ED diagnoses: sepsis; acute kidney injury Normal [facility] Comment on above: Result Comment: Elec tronically Signed By: Amador Nickerson DO\.br\Date and Time Signed: 10/28/22 21:36 EDT ED Note-Physician Basic Information Time Seen: Preston Lugo DO 10/28/2022 17:38 Chief Complaint Pt had hardware removed from R foot by [facility] in [place] on . Surgical site now appears infected and is painful. Pt also has wounds to L foot that are painful. Tramadol at 1430. History of Present Illness 47 female presents emergency department by EMS with concern for infected right foot. Patient states that she just had surgery recently at [facility] after having some hardware removed from her right foot as there was concern that this hardware may be contributing to her infection. She was hospitalized discharged home on Augmentin and Bactrim. Patient states that despite this she continues to have redness and body aches and chills and is concerned about continued infection in that right foot. Patient did have this procedure at [facility] its unclear why she came here today other than she was dissatisfied with [facility]. She has been taking which she describes [...] Hysterectomy, inserti (more content not included)... Normal [facility] Comment on above: Result Comment: Elec tronically Signed By: Preston Lugo DO\.br\Date and Time Signed: 10/28/22 18:30 EDT ED Patient Education Noteon 10-28-2022 ED Patient Education Note Normal [facility] ED Patient Summaryon 023 ED Patient Summary (Inserted Image. Anna ble to display) [place] [id number] Patient Discharge Instructions Person Information Name: MARILYNADDIE Jyoti Age: 47 Years Arrival Date: 10/28/2022 17:37:45 Discharge Diagnosis: SOLO (acute kidney injury); Cellulitis of foot; Sepsis Primary Care Physician: LAURENT FRANCO CNP Provider Information Primary Provider: Preston Lugo DO Advanced Billet Shearer:None The exam and treatment you received in the Emergency Department were for an urgent problem and are not intended as complete care. It is important that you follow up with a doctor, nurse practitioner, or physician?s butcher assistant for ongoing care. If your symptoms [...] opioids can be used to help relieve yhgrofgy-sn-qijgwg pain and are often prescribed following a [...] be struggling with addiction, tell your health customer care assistant and ask for guidance or call [facility]?S National Helpline at 6-117-057-DZQI. s Source: [place] Department of Health and Human Services/Center for Disease Control & Prevention [facility] Medications Given: Medic (more content not included)... Normal [facility] Lactic Acidon 10-28-2022 Lactate [Mass/Vol] 1.6 mmol/L Normal 0.5-2.2 [facility] Comment on above: Performed By: #### 2 [id number] #### [facility] Laboratory [address] [place] [address] PT & PTTon 10-28-2022 aPTT Coag (PPP) [Time] 29.9 second(s) Normal 25.1-36.5 [facility] Comment on above: Result Comment: [...] the same coagulation reagent and instrumentation [place] [facility] Currently there are no coagulation studies available worldwide for children to 14 days, and no normal ranges. Heparin therapeutic range (represented by Anti-Factor Xa activity of 0.2 - 0.4 U/mL) corresponds to PTT of 56.6 - 109.0 sec. Performed By: #### 2 [id number] #### [facility] [address] [place] [address] INR Coag (PPP) [Relative time] 1.2 {INR} Invalid Interpretation Code [facility] Comment on above: Result Comment: INR results are specifically intended to assess patients stabilized on long-term Anticoagulation therapy suggested INR?s ?Less Intensive Anticoagulation? 2.0 ? 3.0 Conventional Range 3.0 ? 4.5 Performed By: #### 2 [id number] #### [facility] [address] [place] [address] PT Coag (PPP) [Time] 13.1 second(s) High 9.4-12.5 [facility] Comment on above: Result Comment: [...] the same coagulation reagent and instrumentation [place] [facility] Currently there are no coagulation studies available worldwide for children to 14 days, and no normal ranges. Performed By: #### 2 [id number] #### [facility] Laboratory [address] [place] [address] Pre-Arrival Noteon 3 Pre-Arrival Note Pre-Arrival Summary Name: [facility], Current Date: 10/28/2022 17:42:54 EDT Gender: Female Date of : Age: 47 Pre-Arrival Type: EMS ETA: 10/28/2022 18:00:00 EDT Primary Care Physician: Presenting Problem: Infected Surgical Site--RM 6 Pre-Arrival User: Milly Long Referring Source: Location: [place] Completion Date/Time: 10/28/2022 00:00:00 [facility] Pre-Hospital Report Form ____ Vital Signs: Pre-Hospital Report: Treatment in Route: Response to Treatment: Misc. Issues: Normal [facility] eGFRon 10-28-2022 GFR/1.73 sq M.predicted among non-blacks MDRD (S/P/Bld) [Vol rate/Area] 37 mL/min/1.73 m2 Low >=59 [facility] Comment on above: Order Comment: Order added by Discern Expert. Result Comment: Artificial Flower Maker odell kidney disease could be indicated at eGFR's of less than 60 mL/min/1.73m2. Kidney failure is indicated at less than 15 mL/min/1.73m2. Performed By: #### 2 [id number] #### [facility] Laboratory [address] [place] [address] CBC AUTO DIFFon 10-22-2022 BASO # 0.1 103/ul Normal 0.0-0.1 [facility] Comment on above: Performed By: #### C BC ####[facility] [address] [place] [id number]. Devin Suresh Basophils/100 WBC (Bld) 0.6 % Normal 0.2-2.0 [facility] Comment on above: Performed By: #### C BC ####[facility] [address] [place], [place] [address]Rd. Devin Suresh EO # 0.2 103/ul Normal 0.0-0.7 [facility] Comment on above: Performed By: #### C BC ####[facility] [address] [place] [address]Dr. Devin Suresh Eosinophils/100 WBC (Bld) 1.8 % Normal 0.9-7.0 [facility] Comment on above: Performed By: #### C BC ####[facility] [address] [place] [address]Dr. Devin Suresh Erythrocyte distribution width (RBC) [Ratio] 12.0 % Normal 11.0-15.0 [facility] Comment on above: Performed By: #### C BC ####[facility] [address] [place], [place] [address]Dr. Devin Suresh Hematocrit (Bld) [Volume fraction] 28.3 % Critically low 36.0-48.0 [facility] Comment on above: Performed By: #### C BC ####[facility] [address] [place], [place] [address]Dr. Devin Suresh Hemoglobin (Bld) [Mass/Vol] 9.5 g/dL Critically low 12.0-16.0 [facility] Comment on above: Performed By: #### C BC ####[facility] [address] [place], [place] [address]Dr. Devin Suresh IG # 0.05 10e3/ul Critically high 0.00-0.03 [facility] Comment on above: Performed By: #### C BC ####[facility] [address] [place], [place] [address]Dr. Devin Suresh IG % 0.6 % Critically high 0.0-0.5 [facility] Comment on above: Performed By: #### C BC ####[facility] [address] [place], [place] [address]Dr. Devin Suresh LYMPH # 1.9 103/ul Normal 1.2-3.8 [facility] Comment on above: Performed By: #### C BC ####[facility] G[address] [place], [place] [address]DrMaris Suresh Lymphocytes/100 WBC (Bld) 20.4 % Critically low 20.5-60.0 [facility] Comment on above: Performed By: #### C BC ####[facility] [address]fr[address] [place] [address]DrMaris Suresh MANUAL DIFF REQ NO Normal [facility] Comment on above: Performed By: #### C BC ####[facility] [address] [place] [address]DrMaris Suresh MCH (RBC) [Entitic mass] 30.6 pg Normal 26.7-34.0 [facility] Comment on above: Performed By: #### C BC ####[facility] Jun[address] [place], [place] [address]DrMaris Suresh MCHC (RBC) [Mass/Vol] 33.6 g/dL Normal 29.9-35.2 [facility] Comment on above: Performed By: #### C BC ####[facility] [address] [place], [place] [address]DrMaris Suresh MCV (RBC) [Entitic vol] 91.3 fL Normal 81.0-99.0 [facility] Comment on above: Performed By: #### C BC ####[facility] [address] [place], [place] [address]DrMaris Suresh MONO # 0.6 103/ul Normal 0.3-0.8 [facility] Comment on above: Performed By: #### C BC ####[facility] [address] [place], [place] [address]DrMaris Suresh Monocytes/100 WBC (Bld) 7.1 % Normal 1.7-12.0 [facility] Comment on above: Performed By: #### C BC ####[facility] [address] [place], [place] [address]DrMaris Suresh NEUT # 6.3 103/ul Normal 1.4-6.5 [facility] Comment on above: Performed By: #### C BC ####[facility] [address] [place], [place] [address]DrMaris Suresh Neutrophils/100 WBC (Bld) 69.5 % Normal 43.0-75.0 [facility] Comment on above: Performed By: #### C BC ####[facility] Avbbf[address] [place] [address]Dr. Devin Suresh Platelet mean volume (Bld) [Entitic vol] 9.5 fL Normal 9.5-13.5 [facility] Comment on above: Performed By: #### C BC ####[facility] [address] [place] [address]Dr. Devin Suresh PLT 309 103/ul Normal 150-450 [facility] Comment on above: Performed By: #### C BC ####[facility] X[address] [place], [place] [address]Dr. Devin Suresh RBC 3.10 106/ul Critically low 4.20-5.40 [facility] Comment on above: Performed By: #### C BC ####[facility] U[address] [place], [place] [address]Dr. Devin Kerwin WBC 9.1 103/ul Normal 4.0-11.0 [facility] Comment on above: Performed By: #### C BC ####[facility] Vps[address] [place], [place] [address]Dr. Devin Kerwin CT FOOT RT WO CONon 10-23-[address] FOOT RT WO CON Normal [facility] DRUG SCREEN RAPID (URINE)on 10-22-2022 AMP Negative Normal NEGATIVE [facility] Comment on above: Performed By: #### D RUGRPD ####[facility] [address] [place] [id number]. Devin Suresh BAR Negative Normal NEGATIVE [facility] Comment on above: Performed By: #### D RUGRPD ####[facility] [address] [place], [place] [address]Dr. Devin Suresh BUP Negative Normal NEGATIVE [facility] Comment on above: Performed By: #### D RUGRPD ####[facility] [address] [place] [id number]. Devin Suresh BZO Negative Normal NEGATIVE [facility] Comment on above: Performed By: #### D RUGRPD ####[facility] [address] [place] [address]Dr. Devin Suresh KATHY Negative Normal NEGATIVE [facility] Comment on above: Performed By: #### D RUGRPD ####[facility] [address] [place] [id number]. Devin Suresh CUT-OFFS SEE BELOW Normal [facility] Comment on above: Result Comment: AMP (Amphetamine): 500ng/mL, BAR (Barbituates): 200 ng/mL, BZO (Benzodiazepines): 150 ng/mL, BUP (Buprenorphine): 10 ng/mL, KATHY (Cocaine): 150 ng/mL, mAMP (Methamphetamine): 500 ng/mL, MTD (Methadone): 200 ng/mL, OPI (Opiates): 100 ng/mL, OXY (Oxycodone): 100 ng/mL, PCP (Phencyclidine): 25 ng/mL, PPX (Propoxyphene): 300 ng/mL, THC (Cannabinoids): 50 ng/mL, TCA (Trycyclic Antidepressants): 300 ng/mL Performed By: #### D RUGRPD ####[facility] [address] [place], [place] [address]Dr. Devin Suresh DRUG CUT HEADER DRUG CLASS TEST SYST EM CUT-OFF CONCENTRATIONS ARE FOLLOWS: Normal [facility] Comment on above: Performed By: #### D RUGRPD ####[facility] [address] [place], [place] [address]Dr. eDvin Suresh mAMP Negative Normal NEGATIVE [facility] Comment on above: Performed By: #### D RUGRPD ####[facility] [address] [place], [place] [address]Dr. Devin Suresh MTD Negative Normal NEGATIVE [facility] Comment on above: Performed By: #### D RUGRPD ####[facility] [address]np[address] [place], [place] [address]Dr. Devin Suresh OPI Negative Normal NEGATIVE [facility] Comment on above: Performed By: #### D RUGRPD ####[facility] [address] [place], [place] [address]Dr. Devin Suresh OXY Negative Normal NEGATIVE [facility] Comment on above: Performed By: #### D RUGRPD ####[facility] [address] [place] [address]Dr. Devin Suresh PCP Negative Normal NEGATIVE [facility] Comment on above: Performed By: #### D RUGRPD ####[facility] [address]vc[address] [place] [address]Dr. Devin Suresh PPX Negative Normal NEGATIVE [facility] Comment on above: Performed By: #### D RUGRPD ####[facility] Fbkxdhoujk3972 [place] [address]Dr. Devin Suresh TCA Positive Abnormal NEGATIVE [facility] Comment on above: Performed By: #### D RUGRPD ####[facility] Tgonbzgaps8368 [place] [address]Dr. Devin Suresh THC Negative Normal NEGATIVE [facility] Comment on above: Performed By: #### D RUGRPD ####[facility] Zung[address]hoo[address] [place] [address]Dr. Devin Suresh POINT OF CARE GLUCOSEon 05-3 Glucose [Mass/Vol] 400 mg/dL Critically high [address] [place] [address] Comment on above: Performed By: #### P OCGLUC ####[facility] Kgmxfdjxvp4536 [place] [address]Dr. Devin Suresh Glucose [Mass/Vol] 284 mg/dL Critically high -106 [facility] Comment on above: Performed By: #### P OCGLUC ####[facility] Jfuamekoee5084 [place] [address]Dr. Devin Suresh Glucose [Mass/Vol] 161 mg/dL Critically high -106 [facility] Comment on above: Performed By: #### P OCGLUC ####[facility] Kpxqmkthah1097 [place] [address]Dr. Devin Suresh Glucose [Mass/Vol] 283 mg/dL Critically high -[address] [place] [address] Comment on above: Performed By: #### P OCGLUC ####[facility] Nyufnppfkx6630 [place] [address]Dr. Devin Suresh Glucose [Mass/Vol] 316 mg/dL Critically high 74-106 T [facility] Comment on above: Performed By: #### P OCGLUC ####[facility] [address] [place], [place] [address]Dr. Devin Suresh PROF 14(COMP METB)on 023 Albumin [Mass/Vol] 2.4 g/dL Critically low 3.4-5.0 [facility] Comment on above: Performed By: #### C MP ####[facility] [address] [place], [place] [address]Dr. Devin Suresh Albumin/Globulin [Mass ratio] 0.6 {ratio} Normal [facility] Comment on above: Performed By: #### C MP ####[facility] [address] [place], [place] [address]Dr. Devin Suresh ALP [Catalytic activity/Vol] 115 U/L Normal 46-116 [facility] Comment on above: Performed By: #### C MP ####[facility] [address]pe[address] [place], [place] [address]Dr. Devin Suresh ALT [Catalytic activity/Vol] 17 U/L Normal 14-59 [facility] Comment on above: Performed By: #### C MP ####[facility] [address] [place], [place] [address]Dr. Devin Suresh Anion gap [Moles/Vol] 12.2 mmol/L Normal [facility] Comment on above: Performed By: #### C MP ####[facility] N[address] [place], [place] [address]Dr. Devin Suresh AST [Catalytic activity/Vol] 15 U/L Normal 15-37 [facility] Comment on above: Performed By: #### C MP ####[facility] [address]wu[address] [place], [place] [address]Dr. Devin Suresh Bilirubin [Mass/Vol] 0.3 mg/dL Normal 0.2-1.0 [facility] Comment on above: Performed By: #### C MP ####[facility] Rsvczrsppi8043 [place] [id number]. Devin Suresh Calcium [Mass/Vol] 8.6 mg/dL Normal 8.5-10.1 [facility] Comment on above: Performed By: #### C MP ####[facility] Foxqcctawt3590 [place] [id number]. Devin Kerwin Chloride [Moles/Vol] 104 mmol/L Normal 98-107 [facility] Comment on above: Performed By: #### C MP ####[facility] Ldmuablkfo8233 [place] [address]Dr. Devin Kerwin CO2 [Moles/Vol] 25.7 mmol/L Normal 21.0-32.0 [facility] Comment on above: Performed By: #### C MP ####[facility] Abfqjwrgbw50[address] [place] [address]Dr. Devin Kerwin Creatinine [Mass/Vol] 1.17 mg/dL Critically high 0.55-1.02 [facility] Comment on above: Performed By: #### C MP ####[facility] Npcihhheov[address] [place] [id number]. Devin Kerwin EGFR-AF CONGOLESE >60 Normal >=60 [facility] Comment on above: Performed By: #### C MP ####[facility] Tfeaesiiip[address]051 [place] [address]Dr. Devin Kerwin EGFR-NON AF CONGOLESE 50 mL/min/1.73m2 Critically low >=60 [facility] Comment on above: Performed By: #### C MP ####[facility] Jqqimdpunf32[address] [place] [address]Dr. Tishemily Suresh Globulin (S) [Mass/Vol] 4.1 g/dL Normal [facility] Comment on above: Performed By: #### C MP ####[facility] Cmjycivlph8405 [place] [address]Dr. Tishemily Kerwin Glucose [Mass/Vol] 262 mg/dL Critically high 74-106 T [facility] Comment on above: Performed By: #### C MP ####[facility] [address] [place], [place] [address]Dr. Devin Suresh Potassium [Moles/Vol] 3.9 mmol/L Normal 3.5-5.1 [facility] Comment on above: Performed By: #### C MP ####[facility] Xxvxvinmrg1391 [place] [address]Dr. Devin Suresh Protein [Mass/Vol] 6.5 g/dL Normal 6.4-8.2 [facility] Comment on above: Performed By: #### C MP ####[facility] [address] [place], [place] [address]Dr. Devin Suresh Sodium [Moles/Vol] 138 mmol/L Normal 136-145 [facility] Comment on above: Performed By: #### C MP ####[facility] [address]iqu[address] [place], [place] [address]Dr. Devin Suresh Urea nitrogen [Mass/Vol] 23.0 mg/dL Critically high 7.0-18.0 [facility] Comment on above: Performed By: #### C MP ####[facility] Okrzmguaeq[address] [place], [place] [address]Dr. Devin Suresh Urea nitrogen/Creatinine [Mass ratio] 19.7 mg/mg Normal [facility] Comment on above: Performed By: #### C MP ####[facility] Vbhrrwtshl87[address] [place], [place] [address]Dr. Devin Suresh ACETONE SERUMon 10-21-2022 ACETONE Negative Normal NEGATIVE [facility] Comment on above: Performed By: #### A CETON ####[facility] Xyyjjakzct66[address] [place], [place] [address]Dr. Devin Suresh CBC AUTO DIFFon 10-21-2022 BASO # 0.1 103/ul Normal 0.0-0.1 [facility] Comment on above: Performed By: #### C BC ####[facility] Zzujntpwha[address] [place], [place] [address]Dr. Devin Suresh Basophils/100 WBC (Bld) 0.4 % Normal 0.2-2.0 [facility] Comment on above: Performed By: #### C BC ####[facility] [address] [place] [address]Dr. Devin Suresh EO # 0.2 103/ul Normal 0.0-0.7 [facility] Comment on above: Performed By: #### C BC ####[facility] Hwrqbouoxs[address] [place], [place] [address]Dr. Devin Suresh Eosinophils/100 WBC (Bld) 1.1 % Normal 0.9-7.0 [facility] Comment on above: Performed By: #### C BC ####[facility] Siiqllicia99[address] [place], [place] [address]Dr. Devin Suresh Erythrocyte distribution width (RBC) [Ratio] 12.0 % Normal 11.0-15.0 [facility] Comment on above: Performed By: #### C BC ####[facility] Otcdsztoin9[address] [place], [place] [address]Dr. Devin Suresh Hematocrit (Bld) [Volume fraction] 34.1 % Critically low 36.0-48.0 [facility] Comment on above: Performed By: #### C BC ####[facility] Adbibxrcnd9[address] [place], [place] [address]Dr. Devin Suresh Hemoglobin (Bld) [Mass/Vol] 11.4 g/dL Critically low 12.0-16.0 [facility] Comment on above: Performed By: #### C BC ####[facility] Tweicviayx5[address] [place], [place] [address]Dr. Devin Suresh IG # 0.05 10e3/ul Critically high 0.00-0.03 The [facility] Comment on above: Performed By: #### C BC ####[facility] Ofbjlsvksd9238[address] [place], [place] [address]Dr. Devin Suresh IG % 0.4 % Normal 0.0-0.5 [facility] Comment on above: Performed By: #### C BC ####[facility] Cshgrwwntp[address] [place], [place] [address]Dr. Devin Suresh LYMPH # 1.6 103/ul Normal 1.2-3.8 [facility] Comment on above: Performed By: #### C BC ####[facility] Cqdqulgamq45[address] [place] [id number]. Devin Suresh Lymphocytes/100 WBC (Bld) 11.9 % Critically low 20.5-60.0 [facility] Comment on above: Performed By: #### C BC ####[facility] Wobjgtdncj22[address] [place] [id number]. Devin Kerwin MANUAL DIFF REQ NO Normal [facility] Comment on above: Performed By: #### C BC ####[facility] Cfvbokxjzy8[address] [place] [address]Dr. Devin Kerwin MCH (RBC) [Entitic mass] 30.5 pg Normal 26.7-34.0 [facility] Comment on above: Performed By: #### C BC ####[facility] Aoumrygyae[address] [place] [address]Dr. Devin Kerwin MCHC (RBC) [Mass/Vol] 33.4 g/dL Normal 29.9-35.2 [facility] Comment on above: Performed By: #### C BC ####[facility] Xrldispplu32[address] [place] [address]Dr. Devin Kerwin MCV (RBC) [Entitic vol] 91.2 fL Normal 81.0-99.0 [facility] Comment on above: Performed By: #### C BC ####[facility] Ppagpnekmm57[address] [place], [place] [address]Dr. Tishemily Kerwin MONO # 0.7 103/ul Normal 0.3-0.8 [facility] Comment on above: Performed By: #### C BC ####[facility] Othdlwljqh19[address] [place] [address]Dr. Tishemily Suresh Monocytes/100 WBC (Bld) 5.4 % Normal 1.7-12.0 [facility] Comment on above: Performed By: #### C BC ####[facility] Muvreuworx3725[address] [place], [place] [address]Dr. Devin Suresh NEUT # 11.0 103/ul Critically high 1.4-6.5 The [facility] Comment on above: Performed By: #### C BC ####[facility] Mlxziunspr7387 [place] [id number]. Devin Suresh Neutrophils/100 WBC (Bld) 80.8 % Critically high 43.0-75.0 [facility] Comment on above: Performed By: #### C BC ####[facility] Nkstlisqfd2084 [place] [id number]. Devin Suresh Platelet mean volume (Bld) [Entitic vol] 9.1 fL Critically low 9.5-13.5 [facility] Comment on above: Performed By: #### C BC ####[facility] Hvpbwpcxpg5166 [place] [id number]. Devin Suresh PLT 315 103/ul Normal 150-450 [facility] Comment on above: Performed By: #### C BC ####[facility] Iqsiwdiifu4955 [place] [id number]. Devin Suresh RBC 3.74 106/ul Critically low 4.20-5.40 [facility] Comment on above: Performed By: #### C BC ####[facility] Vtvmwbncat2424 [place] [id number]. Devin Suresh WBC 13.6 103/ul Critically high 4.0-11.0 The [facility] Comment on above: Performed By: #### C BC ####[facility] Kibzjftoex56[address] [place] [phone]. Devin Suresh CRPon 10-21-2022 CRP 12.8 mg/dL Critically high <=1.0 [facility] Comment on above: Performed By: #### C MP, CRP ####[facility] Cfoyogwszv20[address] [place] [id number]. Devin Suresh LACTATE/LACTIC ACIDon 2022 Lactate [Moles/Vol] 1.6 mmol/L Normal 0.4-2.0 [facility] Comment on above: Performed By: #### L ACT ####[facility] Hrmdxacvow13[address] [place] [id number]. Devin Suresh PH VENOUS BLOODon 10-21-2022 PCO2 VENOUS 49.5 mmHg Normal 40.0-52.0 [facility] Comment on above: Performed By: #### P HVEN ####[facility] Kmnyidoegu[address] [place] [address]Dr. Devin Suresh pH VENOUS 7.334 Normal 7.330-7.430 [facility] Comment on above: Performed By: #### P HVEN ####[facility] Igmdlvydee1190 [place] [address]Dr. Devin Suresh POINT OF CARE GLUCOSEon 09-24 Glucose [Mass/Vol] 151 mg/dL Critically high 74-106 [facility] Comment on above: Performed By: #### P OCGLUC ####[facility] Efjqifsids[address] [place], [place] [address]Dr. Devin Suresh PROF 14(COMP METB)on 023 Albumin [Mass/Vol] 3.1 g/dL Critically low 3.4-5.0 [facility] Comment on above: Performed By: #### C MP, CRP ####[facility] Zxpdbxnnsg70[address] [place], [place] [address]Dr. Devin Suresh Albumin/Globulin [Mass ratio] 0.6 {ratio} Normal [facility] Comment on above: Performed By: #### C MP, CRP ####[facility] Mdmcclfpfv7717[address] [place], [place] [address]Dr. Devin Suresh ALP [Catalytic activity/Vol] 132 U/L Critically high 46-116 [facility] Comment on above: Performed By: #### C MP, CRP ####[facility] Veebcafkxh68[address] [place] [address]Dr. Devin Suresh ALT [Catalytic activity/Vol] 20 U/L Normal 14-59 [facility] Comment on above: Performed By: #### C MP, CRP ####[facility] Nseycctunj6945[address] [place], [place] [address]Dr. Devin Suresh Anion gap [Moles/Vol] 14.4 mmol/L Normal [facility] Comment on above: Performed By: #### C MP, CRP ####[facility] Jewgrxuqxx5334[address] [place], [place] [address]Dr. Devin Suresh AST [Catalytic activity/Vol] 20 U/L Normal 15-37 [facility] Comment on above: Performed By: #### C MP, CRP ####[facility] Dwfbiaxncb[address] [place], [place] [address]Dr. Devin Suresh Bilirubin [Mass/Vol] 0.3 mg/dL Normal 0.2-1.0 [facility] Comment on above: Performed By: #### C MP, CRP ####[facility] Heknlnlkfx[address] [place], [place] [address]Dr. Devin Suresh Calcium [Mass/Vol] 9.2 mg/dL Normal 8.5-10.1 [facility] Comment on above: Performed By: #### C MP, CRP ####[facility] Rsxsaegmli84[address] [place], [place] [address]Dr. Devin Suresh Chloride [Moles/Vol] 101 mmol/L Normal 98-107 [facility] Comment on above: Performed By: #### C MP, CRP ####[facility] Lvelzrznyl3204[address] [place], [place] [address]Dr. Devin Suresh CO2 [Moles/Vol] 26.6 mmol/L Normal 21.0-32.0 The [facility] Comment on above: Performed By: #### C MP, CRP ####[facility] Hvsjxkgyyr[address] [place], [place] [address]Dr. Devin Suresh Creatinine [Mass/Vol] 1.34 mg/dL Critically high 0.55-1.02 [facility] Comment on above: Performed By: #### C MP, CRP ####[facility] Dbwpjlemro[address] [place], [place] [address]Dr. Devin Suresh EGFR-AF CONGOLESE 52 mL/min/1.73m2 Critically low >=60 [facility] Comment on above: Performed By: #### C MP, CRP ####[facility] Nculofalfp5049[address] [place], [place] [address]Dr. Devin Suresh EGFR-NON AF CONGOLESE 43 mL/min/1.73m2 Critically low >=60 [facility] Comment on above: Performed By: #### C MP, CRP ####[facility] Fezhetqgri4[address] [place] [address]Dr. Devin Suresh Globulin (S) [Mass/Vol] 4.9 g/dL Normal [facility] Comment on above: Performed By: #### C MP, CRP ####[facility] Uwymfhrgws9[address] [place], [place] [address]Dr. Devin Suresh Glucose [Mass/Vol] 210 mg/dL Critically high 74-106 [facility] Comment on above: Performed By: #### C MP, CRP ####[facility] Biakjtjzwf[address]99[address] [place], [place] [address]Dr. Devin Suresh Potassium [Moles/Vol] 4.0 mmol/L Normal 3.5-5.1 [facility] Comment on above: Performed By: #### C MP, CRP ####[facility] Ilomhfoyqb5203[address] [place], [place] [address]Dr. Devin Suresh Protein [Mass/Vol] 8.0 g/dL Normal 6.4-8.2 The [facility] Comment on above: Performed By: #### C MP, CRP ####[facility] Zonxqymzuu[address] [place], [place] [address]Dr. Devin Suresh Sodium [Moles/Vol] 138 mmol/L Normal 136-145 [facility] Comment on above: Performed By: #### C MP, CRP ####[facility] Kledgozmpl64[address] [place], [place] [address]Dr. Devin Suresh Urea nitrogen [Mass/Vol] 29.0 mg/dL Critically high 7.0-18.0 [facility] Comment on above: Performed By: #### C MP, CRP ####[facility] Oqadufkzdw[address] [place], [place] [address]Dr. Devin Suresh Urea nitrogen/Creatinine [Mass ratio] 21.6 mg/mg Normal [facility] Comment on above: Performed By: #### C MP, CRP ####[facility] Qmrjkxagob8[address] [place], [place] [address]Dr. Devin Suresh SED RATE [facility] 2022 SED RATE 88 mm/hr Critically high <=20 [facility] Comment on above: Performed By: #### S EDR ####[facility] Hfjfeaeuig00[address] [place], [place] [address]KuMaris Suresh XR ELBOW RT MIN 3 VIEWSon XR ELBOW RT MIN 3 VIEWS Normal [facility] XR FOOT RT MIN 3 VIEWSon XR FOOT RT MIN 3 VIEWS Normal [facility] BASIC METABOLIC PANELon 09-22 Anion gap [Moles/Vol] 14 mmol/L Normal 10-20 [facility] Comment on above: Performed By: #### C H8, CRP, MG ####[facility] EKFQKWKINU2071 [place], [place], Calcium [Mass/Vol] 9.1 mg/dL Normal 8.4-10.4 [facility] Comment on above: Performed By: #### C H8, CRP, MG ####[facility] TSWOARVIYU3659 [place], [place], Chloride [Moles/Vol] 104 mmol/L Normal 97-111 [facility] Comment on above: Performed By: #### C H8, CRP, MG ####[facility] PZJSFOTIES5881 [place], CO2 [Moles/Vol] 27 mmol/L Normal 21-30 [facility] Comment on above: Performed By: #### C H8, CRP, MG ####[facility] QRNTVDPNSB9933 [place], Creatinine [Mass/Vol] 0.90 mg/dL Normal 0.50-1.10 [facility] Comment on above: Performed By: #### C H8, CRP, MG ####[facility] CPWYBTPEUJ4903 [place], [place], ESTIMATED GFR (CKD-EPI) 80 mL/min/1.73sqm Normal >=60 [facility] Comment on above: Result Comment: 2020 [...] Inclusion of Race in Diagnosing Kidney Disease. [place] Journal of Kidney Diseases 2021;79(2):268-88.e1. 2. N Engl J Med 2020 Vol. 385 Issue 19 Pages [phone] Performed By: #### C H8, CRP, MG ####[facility] HUMKGAPZRB7733 [place], Glucose [Mass/Vol] 82 mg/dL Normal 68-110 [facility] Comment on above: Performed By: #### C H8, CRP, MG ####[facility] WRNHLMPHCB2563 [place], Potassium [Moles/Vol] 3.6 mmol/L Normal 3.3-5.3 [facility] Comment on above: Performed By: #### C H8, CRP, MG ####[facility] NPDKNQOICT0462 [place], Sodium [Moles/Vol] 141 mmol/L Normal 135-148 [facility] Comment on above: Performed By: #### C H8, CRP, MG ####[facility] YEZOQGXMYE0524 [place], Urea nitrogen [Mass/Vol] 18 mg/dL Normal 8-22 [facility] Comment on above: Performed By: #### C H8, CRP, MG ####[facility] FITSCDERAK8226 [place], C-REACTIVE PROTEINon 023 CRP 0.8 mg/dL High <0.8 [facility] Comment on above: Performed By: #### C H8, CRP, MG ####[facility] GDAGCURJWC5900 [place], [place], CBC WITH DIFFERENTIALon 09-22 Basophils (Bld) [#/Vol] 0.11 10*3/uL Normal 0.00-0.20 [facility] Comment on above: Performed By: #### C BCDSAT, ESR ####[facility] CETISQPWOC1112 [place], Basophils/100 WBC (Bld) 0.9 % Normal <=1.9 [facility] Comment on above: Performed By: #### C CINDAAT, ESR ####S PATHOLOGY WTMXHUKZIN6204 [place], Eosinophils (Bld) [#/Vol] 0.23 10*3/uL Normal 0.00-0.70 [facility] Comment on above: Performed By: #### C BCDSAT, ESR ####[facility] PATHOLOGY SFOLVAQJAR9402 [place], Eosinophils/100 WBC (Bld) 1.9 % Normal 0.1-4.0 [facility] Comment on above: Performed By: #### C CINDAAT, ESR ####[facility] PATHOLOGY [id number] [place], Erythrocyte distribution width (RBC) [Ratio] 12.6 % Normal 11.5-14.5 [facility] Comment on above: Performed By: #### C CINDAAT, ESR ####[facility] PATHOLOGY DIYNXHYFRT9529 [place], Hematocrit (Bld) [Volume fraction] 37.9 % Normal 36.0-46.0 [facility] Comment on above: Performed By: #### C BCSAMYAT, ESR ####[facility] PATHOLOGY [id number] [place], Hemoglobin (Bld) [Mass/Vol] 12.6 g/dL Normal 12.0-15.0 [facility] Comment on above: Performed By: #### C BCDSAT, ESR ####[facility] PATHOLOGY [id number] [place], Lymphocytes (Bld) [#/Vol] 3.20 10*3/uL Normal 1.00-4.80 [facility] Comment on above: Performed By: #### C BCDSAT, ESR ####[facility] PATHOLOGY [id number] [place], Lymphocytes/100 WBC (Bld) 26.2 % Normal 24.0-44.0 The [facility] Comment on above: Performed By: #### Isabell STARK, ESR ####S PATHOLOGY [id number] [place], MCH (RBC) [Entitic mass] 30.1 pg Normal 26.0-34.0 [facility] Comment on above: Performed By: #### Isabell STARK, ESR ####[facility] PATHOLOGY [id number] [place], MCHC (RBC) [Mass/Vol] 33.2 g/dL Normal 32.0-35.9 The [facility] Comment on above: Performed By: #### Isabell STARK, ESR ####S PATHOLOGY [id number] [place], MCV (RBC) [Entitic vol] 91 fL Normal 80-100 The [facility] Comment on above: Performed By: #### Isabell STARK, ESR ####[facility] PATHOLOGY ZPRCEWRSRI[address] [place] [address], MONOCYTE DISTRIBUTION WIDTH 21 High <=20 The [facility] Comment on above: Performed By: #### Isabell STARK, ESR ####[facility] PATHOLOGY WYPGPMHCSF[address] [place] [address], Monocytes (Bld) [#/Vol] 0.62 10*3/uL Normal 0.20-1.00 [facility] Comment on above: Performed By: #### Isabell STARK, ESR ####S PATHOLOGY DUYOVWMWRW8864 [place], Monocytes/100 WBC (Bld) 5.1 % Normal 2.0-11.0 The [facility] Comment on above: Performed By: #### Isabell STARK, ESR ####S PATHOLOGY DTLUSZFNEL[address] [place] [address], Neutrophils (Bld) [#/Vol] 8.05 10*3/uL High 1.50-8.00 [facility] Comment on above: Performed By: #### Isabell STARK, ESR ####S PATHOLOGY YRFQMPXEVS[address] [place] [address], Neutrophils/100 WBC (Bld) 66.0 % Normal 31.0-76.0 [facility] Comment on above: Performed By: #### Isabell STARK, ESR ####[facility] PATHOLOGY [id number] [place], Platelet mean volume (Bld) [Entitic vol] 7.3 fL Low 7.5-11.2 [facility] Comment on above: Performed By: #### Isabell STARK, ESR ####[facility] PATHOLOGY [id number] [place], Platelets (Bld) [#/Vol] 380 10*3/uL Normal 150-400 [facility] Comment on above: Performed By: #### Isabell STARK, ESR ####[facility] PATHOLOGY [id number] [place], RBC (Bld) [#/Vol] 4.18 10*6/uL Normal 4.00-5.20 [facility] Comment on above: Performed By: #### Isabell STARK, ESR ####[facility] PATHOLOGY [id number] [place], WBC (Bld) [#/Vol] 12.2 10*3/uL High 4.5-11.5 [facility] Comment on above: Performed By: #### Isabell STARK, ESR ####[facility] PATHOLOGY [id number] [place], [place], CT C-SPINE W/ CONTRASTon CT C-SPINE [...] neural foraminal narrowing. MACRO: None Normal The [facility] CT Cervical spine W contrast [place] [...] bulging without neural foraminal narrowing. MACRO: None [facility] CT Cervical spine W contrast IVOrdered By: Kwaku Herman on 10-07-2022 [facility] Work Phone: CT T-SPINE/L-SPINE W/ CONTRA STon [...] or nerve impingement. MACRO: None Normal The [facility] CT Thoracic and lumbar spine W [...] canal stenosis or nerve impingement. MACRO: None [facility] [employer] 10-07-2022 Conditioner Tender Authentication Interface Message Text SPINE TRAUMA H [...] CT L spine myelogram in 2016 at [facility] significant for mild L4/5 foraminal stenosis. Antiplatelet/Anticoagulan [...] please include ALL residents below in any [facility] Chat communications: Ortho Trauma Team A: Courtney Jessica PGY1 ([phone]) Jacob Lo PGY3 ([phone]) After 5pm, weekends, and holidays please page Ortho consult pager, [phone] Normal The [facility] ED Provider Noteson 10-08-19 Conditioner Tender Authentication Interface Message Text ED RESIDENT CONTINUATION [...] diabetes mellitus with diabetic neuropathy, unspecified whether detention insulin use (HCC) [E11.40] Disposition: Home The [...] Brown DO Rotating Resident, PGY-1 Normal The [facility] ERYTHROCYTE SEDIMENTATION RA Estephania 10-07-2022 ESR (Bld) [Velocity] 48 mm/h High <=30 The [facility] Comment on above: Performed By: #### C BCDSAT, ESR ####[facility] [id number] [place], [address] MAGNESIUMon 10-07-2022 Magnesium [Mass/Vol] 1.4 mg/dL Low 1.6-2.8 The [facility] Comment on above: Performed By: #### C H8, CRP, MG ####S PATHOLOGY OOSHEMEWPX9162 [place], [place], No Panel Informationon 10-07 Radiology Study observation (narrative) [facility] PROTHROMBIN TIME AND INRon 0 10-07-2022 INR Coag (PPP) [Relative time] 1.12 {INR} High 0.90-1.10 [facility] Comment on above: Performed By: #### P T #### S PATHOLOGY LABORATORY [address] [place], [place], PT Coag (PPP) [Time] 12.6 s Normal 9.7-12.9 [facility] Comment on above: Performed By: #### P T #### [facility] PATHOLOGY LABORATORY [address] [place], [place], INR Coag (PPP) [Relative time] 1.12 {INR} High 0.90 - 1.10 [facility] Interpretation and review of laboratory results Abnormal [facility] PT Coag (PPP) [Time] 12.6 s [facility] TYPE AND SCREENon 10-07-2022 ABO and Rh group Nom (Bld) Blood group A Rh(D) positive [facility] ABO and Rh group Nom (Bld) No Previous Results [facility] Blood group antibody screen Ql Negative [facility] ABO and Rh group Nom (Bld) Blood group A Rh(D) positive Normal [facility] Comment on above: Performed By: #### T S #### S PATHOLOGY LABORATORY [address] [place], [place], ABO and Rh group Nom (Bld) No Previous Results Normal [facility] Comment on above: Performed By: #### T S #### S PATHOLOGY LABORATORY [address] [place], [place], ABSC INT Negative Normal [facility] Comment on above: Performed By: #### T S #### S PATHOLOGY LABORATORY [address] [place], [place], Basic metabolic 2000 panelon 10-06-2022 Anion gap [Moles/Vol] 14 mmol/L 10 - 20 Met [facility] Calcium [Mass/Vol] 9.1 mg/dL [...] Inclusion of Race in Diagnosing Kidney Disease. [place] Journal of Kidney Diseases 2021;79(2):268-88.e1. 2. N Engl J Med 2020 Vol. 385 Issue 19 Pages [phone] Glucose [Mass/Vol] 82 mg/dL 68 - 110 [...] 71 mL/min/1.73 m2 Normal >=59mL/min/ 1.73 m2 [facility] [place] Globulin (S) [Mass/Vol] 3.8 g/dL [...] 229 mg/dL High 55 - 99 mg/dL [facility] [place] Subsection Comment on above: Result Comment: Peter yeh RN/ POC Device SN [id number] Invalid Interpretation Code [facility] [place] Subsection POC User ID [id number] Invalid Interpretation Code [facility] [place] Subsection POC Username BROOKLYNN BURCIAGA Invalid Interpretation Code [facility] [place] Subsection ED Provider Noteson 10-07-19 Conditioner Tender Authentication Interface Message Text ----- Attestation with edits by Jocelyn Bowen MD at 10/07/2022 5:51 PM ATTENDING NOTE Patient transferred for MRI for concern cauda equina. Signed out at 2300 awaiting spine eval and discussion with or [employer] regarding device compatibility. I saw and evaluated [...] Complaint Patient presents with Chart Transfer from [facility] for MRI Neuropsychology Service Director: not needed - patient preferred language is Latvian. The history is provided by the Patient. Addie Jean Baptiste is a 47 year old female PMH DM2 c/b severe diabetic neuropathy, retention, hypothyroidism, bipolar presenting to the ED for lower extremity weakness and incontinence. [facility] cauda equina [facility]. [...] to CT myelogram Discussion with External Provider: Fire Management Technician from spine service recommends MRI or CT myelogram. Negative CT myelogram - recommend to follow up outpatient Discussion with External Provider: Fire Management Technician from IR service recommends CT myelogram as cardiology cannot interrogate pacemaker due to another emergent procedure. Secondary Considerations / Diagnoses Addressed During this Visit: DM assessed and could be contributing to patient's weakness from neuropathy. Evaluated (more content not included)... Normal [employer] ERYTHROCYTE SEDIMENTATION RA Estephania 10-06-2022 ESR (Bld) [Velocity] 48 mm/h High [facility] Interpretation and review of laboratory results Abnormal [facility] HEMATOLOGYOrdered By: SYSTEM SYSTEM on 10-06-2022 Basophils/100 [...] 11.8 E9/L High 4.0 - 11.0 E9/L [facility]eAutoSS MAGNESIUMon 10-06-2022 Magnesium [Mass/Vol] 1.4 mg/dL Low 1.6 - 2 .8 mg/dL [facility] No Panel Informationon 10-06 Interpretation and review of laboratory results Abnormal [facility] XR KUB 1 VIEWon 09-18-2022 XR KUB 1 VIEW Normal [facility] CHEMISTRYOrdered By: Lab ROP User on 09-15-2022 Glucose [Mass/Vol] 166 mg/dL High 55 - 99 mg/dL [facility] POC Subsection Comment on above: Result Comment: Peter SERNA POC Device SN [id number] Invalid Interpretation Code [facility] POC Subsection POC User ID [id number] Invalid Interpretation Code [facility] POC Subsection POC Username Michi Huynh Invalid Interpretation Code [facility] POC Subsection Glucose [Mass/Vol] 172 mg/dL High 55 - 99 mg/dL [facility] POC Subsection Comment on above: Result Comment: Peter SERNA POC Device SN [id number] Invalid Interpretation Code [facility] POC Subsection POC User ID [id number] Invalid Interpretation Code [facility] POC Subsection POC Username Michi Huynh Invalid Interpretation Code [facility] [place] Subsection CHEMISTRYOrdered By: SYSTEM SYSTEM on 09-15-2022 Anion gap [Moles/Vol] 10 mmol/L Normal 6 - 16 mEq/L [facility] Chloride [Moles/Vol] 105 mmol/L Normal 101 - 1 11 mmol/L [facility] CO2 [Moles/Vol] 27 mmol/L Normal 21 - 31 mmol/L [facility] Potassium [Moles/Vol] 4.8 mmol/L Normal 3.5 - 5.3 mmol/L [facility] Sodium [Moles/Vol] 137 mmol/L Normal 135 - 145 mmol/L [facility] Remisol CHEMISTRYOrdered By: Lab ROP User on 09-14-2022 Glucose [Mass/Vol] 219 mg/dL High 55 - 99 mg/dL [facility] POC Subsection Comment on above: Result Comment: Prema saldaña Meter POC Device SN [id number] Invalid Interpretation Code [facility] POC Subsection POC User ID [id number] Invalid Interpretation Code [facility] POC Subsection POC Username TONIA BARBOSA Invalid Interpretation Code [facility] POC Subsection CHEMISTRYOrdered By: Elizabeth gorman on 09-14-2022 HbA1c (Bld) [Mass fraction] 9.4 % High <=5.9% [facility] ChemAutoSS CHEMISTRYOrdered By: SYSTEM SYSTEM on 09-14-2022 Anion gap [Moles/Vol] 8 mmol/L Normal 6 - 16 mEq/L [facility] Remisol Calcium [Mass/Vol] 8.0 mg/dL Low 8.9 - 11. 1 mg/dL [facility] Remisol Chloride [Moles/Vol] 108 mmol/L Normal 101 - 1 11 mmol/L [facility] Remisol CO2 [Moles/Vol] 26 mmol/L Normal 21 - 31 mmol/L [facility] Remisol Creatinine [Mass/Vol] 1.1 mg/dL Normal 0.5 - 1.3 mg/dL [facility] Remisol GFR/1.73 sq M.predicted among blacks MDRD (S/P/Bld) [Vol rate/Area] mL/min/1.73 m2 Normal >=59mL/min/ 1.73 m2 [facility] Chem S GFR/1.73 sq M.predicted among non-blacks MDRD (S/P/Bld) [Vol rate/Area] 54 mL/min/1.73 m2 Low >=59mL/min/ 1.73 m2 [facility] Chem S Glucose [Mass/Vol] 152 mg/dL Normal 55 - 199 mg/dL [facility] Potassium [Moles/Vol] 4.2 mmol/L Normal 3.5 - 5.3 mmol/L [facility] Remisol Sodium [Moles/Vol] 138 mmol/L Normal 135 - 145 mmol/L [facility] Remisol Urea nitrogen [Mass/Vol] 27 mg/dL High 5 - 21 mg/dL [facility] Remisol Urea nitrogen/Creatinine [Mass ratio] 24 mg/mg [...] 1.3 mg/dL Normal 0.5 - 1.3 mg/dL [facility] Remisol GFR/1.73 sq M.predicted among blacks MDRD (S/P/Bld) [Vol rate/Area] 54 mL/min/1.73 m2 Low >=59mL/min/ 1.73 m2 [facility] Chem S GFR/1.73 sq M.predicted among non-blacks MDRD (S/P/Bld) [Vol rate/Area] 44 mL/min/1.73 m2 Low >=59mL/min/ 1.73 m2 [facility] Chem S Glucose [Mass/Vol] 98 mg/dL Normal [...] rate/Area] mL/min/1.73 m2 Normal >=59mL/min/ 1.73 m2 [facility] Chem S GFR/1.73 sq M.predicted among non-blacks MDRD (S/P/Bld) [Vol rate/Area] mL/min/1.73 m2 Normal >=59mL/min/ 1.73 m2 [facility] Chem S Globulin (S) [Mass/Vol] 3.6 g/dL Normal 1.4 - 4.0 gm/dL [facility] Remisol Glucose [Mass/Vol] 405 mg/dL High 55 - 199 mg/dL [facility] Remisol Lactate [Mass/Vol] 1.2 mmol/L Normal 0.5 - 2.2 mmol/L [facility] Remisol Protein [Mass/Vol] 7.1 g/dL Normal 6.0 - 7.8 gm/dL [facility] Remisol Troponin I.cardiac [Mass/Vol] 5.20 pg/mL Low 10.10 - 27.10 pg/mL [facility] Remisol Urea nitrogen [Mass/Vol] 22 mg/dL High 5 - 21 mg/dL [facility] Remisol Urea nitrogen/Creatinine [Mass ratio] 24 mg/mg High 10 - 20 [facility] Remisol COAGULATIONOrdered By: Glynn Bryant on 09-12-2022 aPTT Coag (PPP) [Time] 31.1 s Normal 25.1 - 36.5 second(s) [facility] Auto Coag INR Coag (PPP) [Relative time] 1.0 {INR} Invalid Interpretation Code [facility] Auto Coag PT Coag (PPP) [Time] 11.7 s Normal 9.4 - 1 2.5 second(s) [facility] Auto Coag Glucose Glucometer (BldC) [M ass/Vol]Ordered By: Shameka Romero on 09-12-2022 Glucose [Mass/Vol] 459 mg/dL [facility] Comment on above: Random Glucose Refer ence Range is dependent on time and content of last meal. Glucose of more than 200 mg/dL in a nonstressed, ambulatory subject supports the diagnosis of Diabetes Mellitus. HEMATOLOGYOrdered By: SYSTEM SYSTEM on 09-12-2022 Basophils/100 WBC (Bld) 1.0 % Normal 0.0 - 2.0 % [facility] HemeAutoSS Basophils/Leukocytes Auto (Bld) [Pure # fraction] [...] days. Final to follow at 7 days. [facility] Blood Culture Charcoal No growth at 3 days. Final to follow at 7 days. [facility] No Panel InformationOrdered By: Shameka Romero on 09-12-2022 Bedside Glucose #[address]/rn [facility] Bedside Glucose Comment Glu2: cleaned meter [facility] CHEMISTRYOrdered By: SYSTEM SYSTEM on 08-29-2022 Albumin [...] on 08-22-2022 Calcium [Mass/Vol] 8.1 mg/dL 8.6-10.3 [facility] Carbon dioxide, total [Moles /volume] in Serum or PlasmaOrdered By: Jeana Martini on 08-22-2022 CO2 [Moles/Vol] 25.9 mmol/L 21.0-31.[address] [facility] Chloride [Moles/volume] in S hellen or PlasmaOrdered By: Jeana Martini on 08-22-2022 Chloride [Moles/Vol] 111 mmol/L 98-107 [facility] Creatinine [Mass/volume] in Serum or PlasmaOrdered By: Jeana Martini on 08-22-2022 Creatinine [Mass/Vol] 1.22 mg/dL 0.60-1.20 [facility] Glucose Glucometer (BldC) [M ass/Vol]Ordered By: Jeana Martini on 08-22-2022 Glucose [Mass/Vol] 207 mg/dL [facility] Comment on above: Random Glucose Refer ence Range is dependent on time and content of last meal. Glucose of more than 200 mg/dL in a nonstressed, ambulatory subject supports the diagnosis of Diabetes Mellitus. Glucose [Mass/volume] in Ser um or PlasmaOrdered By: Jeana Martini on 08-22-2022 Glucose [Mass/Vol] 141 mg/dL 70-100 [facility] Comment on above: ADA recommended refe rence rangeRandom Glucose Reference Range is dependent on time and content of last meal. Glucose of more than 200 mg/dL in a nonstressed, ambulatory subject supports the diagnosis of Diabetes Mellitus. Magnesium [Mass/volume] in S hellen or PlasmaOrdered By: Jeana Martini on 08-22-2022 Magnesium [Mass/Vol] 1.6 mg/dL 1.9-2.7 [facility] No Panel InformationOrdered By: Jeana Martini on 08-22-2022 Bedside Glucose Comment Glu2: cleaned meter [facility] Estimated GFR (CKD-EPI) 55.771 mL/Min [facility] Creatinine Clearance (Chem 70.62 [facility] Phosphate [Mass/volume] in S hellen or PlasmaOrdered By: Jeana Martini on 08-22-2022 Phosphate [Mass/Vol] 3.8 mg/dL 3.7-7.2 [facility] Potassium [Moles/volume] in Serum or PlasmaOrdered By: Jeana Martini on 08-22-2022 Potassium [Moles/Vol] 4.0 mmol/L 3.5-5.1 [facility] Serum or plasma anion gap de terminationOrdered By: Jeana Martini on 08-22-2022 Anion gap [Moles/Vol] 10.1 mmol/L 6.0-15.0 [facility] Sodium [Moles/volume] in Ser um or PlasmaOrdered By: Jeana Martini on 08-22-2022 Sodium [Moles/Vol] 143 mmol/L 136-145 [facility] Urea nitrogen [Mass/volume] in Serum or PlasmaOrdered By: Jeana Martini on 08-22-2022 Urea nitrogen [Mass/Vol] 20 mg/dL 7-25 [facility] Basophils Auto (Bld) [#/Vol] Ordered By: Jeana Martini on 08-21-2022 Basophils (Bld) [#/Vol] 0.1 10*3/uL 0.0-0.2 [facility] Basophils/100 WBC Auto (Bld) Ordered By: Jeana Martini on 08-21-2022 Basophils/100 WBC (Bld) 0.8 % . [facility] Eosinophils Auto (Bld) [#/Vo l]Ordered By: Jeana Martini on 08-21-2022 Eosinophils (Bld) [#/Vol] 0.2 10*3/uL 0.0-0.45 [facility] Eosinophils/100 WBC Auto (Bl d)Ordered By: Jeana Martini on 08-21-2022 Eosinophils/100 WBC (Bld) 1.8 % . [facility] Erythrocyte distribution wid th Auto (RBC) [Ratio]Ordered By: Jeana Martini on 08-21-2022 Erythrocyte distribution width (RBC) [Ratio] 14.5 % 11.9-15.3 [facility] Hematocrit Auto (Bld) [Volum e fraction]Ordered By: Jeana Martini on 08-21-2022 Hematocrit (Bld) [Volume fraction] 31.3 % 34.0-46.4 [facility] Hemoglobin [Mass/volume] in BloodOrdered By: Jeana Martini on 08-21-2022 Hemoglobin (Bld) [Mass/Vol] 10.7 g/dL 11.8-15.4 [facility] Leukocytes [#/volume] correc shantel for nucleated erythrocytes in Blood by Automated counOrdered By: Jeana Martini on 08-21-2022 WBC corrected for nucl RBC Auto (Bld) [#/Vol] 8.2 10*3/uL 3.8-11.6 [facility] Lymphocytes Auto (Bld) [#/Vo l]Ordered By: Jeana Martini on 08-21-2022 Lymphocytes (Bld) [#/Vol] 1.7 10*3/uL 1.00-4.8 [facility] Lymphocytes/100 WBC Auto (Bl d)Ordered By: Jeana Martini on 08-21-2022 Lymphocytes/100 WBC (Bld) 20.6 % . [facility] MCH Auto (RBC) [Entitic mass ]Ordered By: Jeana Martini on 08-21-2022 MCH (RBC) [Entitic mass] 31.5 pg 24.7-34.3 [facility] MCHC Auto (RBC) [Mass/Vol]Or dered By: Jeana Martini on 08-21-2022 MCHC (RBC) [Mass/Vol] 34.3 g/dL 32.0-35.0 [facility] MCV Auto (RBC) [Entitic vol] Ordered By: Jeana Martini on 08-21-2022 MCV (RBC) [Entitic vol] 91.8 fL 80-100 [facility] Monocytes Auto (Bld) [#/Vol] Ordered By: Jeana Martini on 08-21-2022 Monocytes (Bld) [#/Vol] 0.6 10*3/uL 0.0-0.8 [facility] Monocytes/100 WBC Auto (Bld) Ordered By: Jeana Martini on 08-21-2022 Monocytes/100 WBC (Bld) 7.4 % . [facility] Neutrophils Auto (Bld) [#/Vo l]Ordered By: Jeana Martini on 08-21-2022 Neutrophils (Bld) [#/Vol] 5.7 10*3/uL 1.8-7.7 [facility] Neutrophils/100 WBC Auto (Bl d)Ordered By: Jeana Martini on 08-21-2022 Neutrophils/100 WBC (Bld) 69.4 % . [facility] Nucleated erythrocytes [Pres ence] in Blood by Automated countOrdered By: Jeana Martini on 08-21-2022 Nucleated RBC Auto Ql (Bld) 0.0 /100{WBC} 0-0.5 [facility] Platelet mean volume Auto (B ld) [Entitic vol]Ordered By: Jeana Martini on 08-21-2022 Platelet mean volume (Bld) [Entitic vol] 6.9 fL 6.3-10.7 [facility] Platelets Auto (Bld) [#/Vol] Ordered By: Jeana Martini on 08-21-2022 Platelets (Bld) [#/Vol] 291 10*3/uL 150-450 [facility] RBC Auto (Bld) [#/Vol]Ordere d By: Jeana Martini on 08-21-2022 RBC (Bld) [#/Vol] 3.41 10*6/uL 3.60-5.00 [facility] WBC Auto (Bld) [#/Vol]Ordere d By: Jeana Martini on 08-21-2022 WBC (Bld) [#/Vol] 8.2 10*3/uL 3.8-11.6 [facility] Activated partial thrombopla stin time (aPTT) in platelet poor plasma by coagulation aOrdered By: Jacob Farfan on 08-20-2022 aPTT Coag (PPP) [Time] 62.3 s 25.1-36.5 [facility] Alanine aminotransferase [En zymatic activity/volume] in Serum or PlasmaOrdered By: Jacob Farfan on 08-20-2022 ALT [Catalytic activity/Vol] 7 U/L 7-52 [facility] Albumin [Mass/volume] in Ser um or Plasma by Bromocresol green (BCG) dye binding methoOrdered By: Jacob Farfan on 08-20-2022 Albumin BCG dye [Mass/Vol] 3.6 g/dL 3.5-5.7 [facility] Alkaline phosphatase [Enzyma tic activity/volume] in Serum or PlasmaOrdered By: Jacob Farfan on 08-20-2022 ALP [Catalytic activity/Vol] 82 U/L 34-104 [facility] Amphetamine Screen Ql (U)Ord ered By: Jacob Farfan on 08-20-2022 Amphetamines Ql (U) Negative Negative [facility] Aspartate aminotransferase [ Enzymatic activity/volume] in Serum or PlasmaOrdered By: Jacob Farfan on 08-20-2022 AST [Catalytic activity/Vol] 9 U/L 13-39 [facility] Automated erythrocytes count in urine sediment (number/area)Ordered By: Jacob Farfan on 08-20-2022 RBC Auto (Urine sed) [#/Area] 5-9 [HPF] 0-4 [facility] Automated leukocytes count i n urine sediment (number/area)Ordered By: Jacob Farfan on 08-20-2022 WBC Auto (Urine sed) [#/Area] 10-19 [HPF] 0-4 [facility] Bacterial blood cultureOrder ed By: Jeana Martini on 08-20-2022 Bacteria identified Cx Nom (Bld) NO GROWTH 5 DAYS [facility] Barbiturates [Presence] in U rine by Screen methodOrdered By: Jacob Farfan on 08-20-2022 Barbiturates Screen Ql (U) Negative Negative [facility] Basophils Auto (Bld) [#/Vol] Ordered By: Jacob Farfan on 08-20-2022 Basophils (Bld) [#/Vol] 0.1 10*3/uL 0.0-0.2 [facility] Basophils/100 WBC Auto (Bld) Ordered By: Jacob Farfan on 08-20-2022 Basophils/100 WBC (Bld) 0.7 % . [facility] Benzodiazepines Screen Ql (U )Ordered By: Jacob Farfan on 08-20-2022 Benzodiazepines Ql (U) Negative Negative [facility] Benzoylecgonine [Presence] i n Urine by Screen methodOrdered By: Jacob Farfan on 08-20-2022 Benzoylecgonine Screen Ql (U) Negative Negative [facility] Bilirubin Test strip Ql (U)O rdered By: Jacob Farfan on 08-20-2022 Bilirubin Ql (U) Negative Negative [facility] Bilirubin.total [Mass/volume ] in Serum or PlasmaOrdered By: Jacob Farfan on 08-20-2022 Bilirubin [Mass/Vol] 0.4 mg/dL 0.3-1.0 [facility] C reactive protein [Mass/vol ume] in Serum or PlasmaOrdered By: Jeana Martini on 08-20-2022 CRP [Mass/Vol] 1.5 mg/dL 0.0-0.5 [facility] C reactive protein [Mass/vol ume] in Serum or PlasmaOrdered By: Jacob Farfan on 08-20-2022 CRP [Mass/Vol] 1.9 mg/dL 0.0-0.5 [facility] Calcium [Mass/volume] in Ser um or PlasmaOrdered By: Jacob Farfan on 08-20-2022 Calcium [Mass/Vol] 9.2 mg/dL 8.6-10.3 [facility] Cannabinoids [Presence] in U rine by Screen methodOrdered By: Jacob Farfan on 08-20-2022 Cannabinoids Screen Ql (U) Negative Negative [facility] Comment on above: These are unconfirme d results and should not be used for legal purposes. Drug Cut-Off Concentration: AMPH 1000 ng/mL DIANE 200 ng/mL ALICE 200 ng/mL COCM 300 ng/mL OP 300 ng/mL PCP 25 ng/mL THC 20 ng/mL Carbon dioxide, total [Moles /volume] in Serum or PlasmaOrdered By: Jacob Farfan on 08-20-2022 CO2 [Moles/Vol] 28.0 mmol/L 21.0-31.[address] [facility] Chloride [Moles/volume] in S hellen or PlasmaOrdered By: Jacob Farfan on 08-20-2022 Chloride [Moles/Vol] 105 mmol/L 98-107 [facility] Color Auto (U)Ordered By: Lenin Farfan on 08-20-2022 Color (U) Yellow Yellow [facility] Creatinine [Mass/volume] in Serum or PlasmaOrdered By: Jacob Farfan on 08-20-2022 Creatinine [Mass/Vol] 0.93 mg/dL 0.60-1.20 [facility] Eosinophils Auto (Bld) [#/Vo l]Ordered By: Jacob Farfan on 08-20-2022 Eosinophils (Bld) [#/Vol] 0.1 10*3/uL 0.0-0.45 [facility] Eosinophils/100 WBC Auto (Bl d)Ordered By: Jacob Farfan on 08-20-2022 Eosinophils/100 WBC (Bld) 1.3 % . [facility] Erythrocyte distribution wid th Auto (RBC) [Ratio]Ordered By: Jacob Farfan on 08-20-2022 Erythrocyte distribution width (RBC) [Ratio] 14.5 % 11.9-15.3 [facility] Erythrocyte sedimentation ra te by Photometric methodOrdered By: Jacob Farfan on 08-20-2022 ESR Photometric method (d) [Velocity] 47 mm/hr 0-19 [facility] Globulin Calc (S) [Mass/Vol] Ordered By: Jacob Farfan on 08-20-2022 Globulin (S) [Mass/Vol] 2.8 g/dL [facility] Glucose Glucometer (BldC) [M ass/Vol]Ordered By: Jacob Farfan on 08-20-2022 Glucose [Mass/Vol] 226 mg/dL [facility] Comment on above: Random Glucose Refer ence Range is dependent on time and content of last meal. Glucose of more than 200 mg/dL in a nonstressed, ambulatory subject supports the diagnosis of Diabetes Mellitus. Glucose [Mass/volume] in Ser um or PlasmaOrdered By: Jacob Farfan on 08-20-2022 Glucose [Mass/Vol] 234 mg/dL 70-100 [facility] Comment on above: ADA recommended refe [...] from glycated hemoglobin (Bld) [Mass/Vol] 220 mg/dL [facility] Hematocrit Auto (Bld) [Volum e fraction]Ordered By: Jacob Farfan on 08-20-2022 Hematocrit (Bld) [Volume fraction] 34.4 % 34.0-46.4 [facility] Hemoglobin A1c percentageOrd ered By: Ezekiel Mathew on 08-20-2022 HbA1c (Bld) [Mass fraction] 9.3 % 4.3-5.6 [facility] Comment on above: Increased risk for d iabetes: 5.7 - 6.4diabetes: >6.4glycemic control for adults with diabetes: <7.0 Hemoglobin [Mass/volume] in BloodOrdered By: Jacob Farfan on 08-20-2022 Hemoglobin (Bld) [Mass/Vol] 11.6 g/dL 11.8-15.4 [facility] Ketones Auto test strip (U) [Mass/Vol]Ordered By: Jacob Farfan on 08-20-2022 Ketones (U) [Mass/Vol] Negative Negative [facility] Laboratory - Chemistry and C hemistry - challengeOrdered By: Jacob Farfan on 08-20-2022 GFR/1.73 sq M.predicted MDRD (S/P/Bld) [Vol rate/Area] mL/min/{1.73_m2} [facility] - CoagulationOrde red By: Jacob Farfan on 08-20-2022 PT Coag (PPP) [Time] 12.2 s 9.0-12.9 [facility] Laboratory - UrinalysisOrder ed By: Jacob Farfan on 08-20-2022 Hyaline casts LM Ql (Urine sed) 0-8 [LPF] 0-8 [facility] Leukocytes [#/volume] correc shantel for nucleated erythrocytes in Blood by Automated counOrdered By: Jacob Farfan on 08-20-2022 WBC corrected for nucl RBC Auto (Bld) [#/Vol] 8.5 10*3/uL 3.8-11.6 [facility] Lymphocytes Auto (Bld) [#/Vo l]Ordered By: Jacob Farfan on 08-20-2022 Lymphocytes (Bld) [#/Vol] 2.3 10*3/uL 1.00-4.8 [facility] Lymphocytes/100 WBC Auto (Bl d)Ordered By: Jacob Farfan on 08-20-2022 Lymphocytes/100 WBC (Bld) 27.3 % . [facility] MCH Auto (RBC) [Entitic mass ]Ordered By: Jacob Farfan on 08-20-2022 MCH (RBC) [Entitic mass] 30.8 pg 24.7-34.3 [facility] MCHC Auto (RBC) [Mass/Vol]Or dered By: Jacob Farfan on 08-20-2022 MCHC (RBC) [Mass/Vol] 33.8 g/dL 32.0-35.0 [facility] MCV Auto (RBC) [Entitic vol] Ordered By: Jacob Farfan on 08-20-2022 MCV (RBC) [Entitic vol] 91.2 fL 80-100 [facility] Magnesium [Mass/volume] in S hellen or PlasmaOrdered By: Jacob Farfan on 08-20-2022 Magnesium [Mass/Vol] 1.2 mg/dL 1.9-2.7 [facility] Monocyte distribution width [Entitic volume] in Blood by AutomatedOrdered By: Jacob Farfan on 08-20-2022 Monocyte distribution width Auto (Bld) [Entitic vol] 20.72 % 0.00-20.00 [facility] Comment on above: For adults in ED, MD W > 20.0 may be associated with a higher risk of sepsis during the first 12 hrs of hospital admission Monocytes Auto (Bld) [#/Vol] Ordered By: Jacob Farfan on 08-20-2022 Monocytes (Bld) [#/Vol] 0.5 10*3/uL 0.0-0.8 [facility] Monocytes/100 WBC Auto (Bld) Ordered By: Jacob Farfan on 08-20-2022 Monocytes/100 WBC (Bld) 6.0 % . [facility] Neutrophils Auto (Bld) [#/Vo l]Ordered By: Jacob Farfan on 08-20-2022 Neutrophils (Bld) [#/Vol] 5.5 10*3/uL 1.8-7.7 [facility] Neutrophils/100 WBC Auto (Bl d)Ordered By: Jacob Farfan on 08-20-2022 Neutrophils/100 WBC (Bld) 64.7 % . [facility] Nitrite Test strip Ql (U)Ord ered By: Jacob Farfan on 08-20-2022 Nitrite Ql (U) Negative Negative [facility] No Panel InformationOrdered By: Jeana Martini on 08-20-2022 Bedside Glucose #2 Comment Cleaned meter [facility] No Panel InformationOrdered By: Jacob Farfan on 08-20-2022 Pharmacy Creatinine Clearance (Chem 91.29 [facility] Nucleated erythrocytes [Pres ence] in Blood by Automated countOrdered By: Jacob Farfan on 08-20-2022 Nucleated RBC Auto Ql (Bld) 0.0 /100{WBC} 0-0.5 [facility] Opiates [Presence] in Urine by Screen methodOrdered By: Jacob Farfan on 08-20-2022 Opiates Screen Ql (U) Negative Negative [facility] Phencyclidine Screen Ql (U)O rdered By: Jacob Farfan on 08-20-2022 Phencyclidine Ql (U) Negative Negative [facility] Platelet mean volume Auto (B ld) [Entitic vol]Ordered By: Jacob Farfan on 08-20-2022 Platelet mean volume (Bld) [Entitic vol] 6.9 fL 6.3-10.7 [facility] Platelet poor plasma interna tional normalized ratio (INR) by coagulation assay (relatOrdered By: Jacob Farfan on 08-20-2022 INR Coag (PPP) [Relative time] 1.1 {INR} [facility] Comment on above: INR Therapeutic Rang [...] 08-20-2022 Platelets (Bld) [#/Vol] 326 10*3/uL 150-450 [facility] Potassium [Moles/volume] in Serum or PlasmaOrdered By: Jacob Farfan on 08-20-2022 Potassium [Moles/Vol] 3.3 mmol/L 3.5-5.1 [facility] Protein Auto test strip (U) [Mass/Vol]Ordered By: Jacob Farfan on 08-20-2022 Protein (U) [Mass/Vol] 100 mg/dL Negative [facility] Protein [Mass/volume] in Ser um or PlasmaOrdered By: Jacob Farfan on 08-20-2022 Protein [Mass/Vol] 6.4 g/dL 6.4-8.9 [facility] RBC Auto (Bld) [#/Vol]Ordere d By: Jacob Farfan on 08-20-2022 RBC (Bld) [#/Vol] 3.77 10*6/uL 3.60-5.00 [facility] Serum or plasma albumin/glob ulin mass ratioOrdered By: Jacob Farfan on 08-20-2022 Albumin/Globulin [Mass ratio] 1.3 {ratio} [facility] Serum or plasma anion gap de terminationOrdered By: Jacob Farfan on 08-20-2022 Anion gap [Moles/Vol] 11.3 mmol/L 6.0-15.0 [facility] Sodium [Moles/volume] in Ser um or PlasmaOrdered By: Jacob Farfan on 08-20-2022 Sodium [Moles/Vol] 141 mmol/L 136-145 [facility] Specific gravity Auto test s trip (U) [Rel density]Ordered By: Jacob Farfan on 08-20-2022 Specific gravity (U) [Rel density] 1.017 1.001-1.030 [facility] Squamous epithelial cells de tection in urine sediment by light microscopyOrdered By: Jacob Farfan on 08-20-2022 Epithelial cells.squamous LM Ql (Urine sed) 3-4 [HPF] 0-2 [facility] Troponin I.cardiac [Mass/vol ume] in Serum or Plasma by Detection limit <= 0.01 ng/Ordered By: Jacob Farfan on 08-20-2022 Troponin I.cardiac DL <= 0.01 ng/mL [Mass/Vol] 8.2 pg/mL 0.0-15.0 [facility] Urea nitrogen [Mass/volume] in Serum or PlasmaOrdered By: Jacob Farfan on 08-20-2022 Urea nitrogen [Mass/Vol] 15 mg/dL 7-25 [facility] Urine bacteria detection by automated methodOrdered By: Jacob Farfan on 08-20-2022 Bacteria Auto Ql (U) 1+ None Seen [facility] Urine clarity by refractomet ry automatedOrdered By: Jacob Farfan on 08-20-2022 Clarity Refractometry automated (U) Clear Clear [facility] Urine glucose measurement by automated test strip (mass/volume)Ordered By: Jacob Farfan on 08-20-2022 Glucose Auto test strip (U) [Mass/Vol] >=1000 mg/dL Normal [facility] Urine hemoglobin detection b y automated test stripOrdered By: Jacob Farfan on 08-20-2022 Hemoglobin Auto test strip Ql (U) Trace Negative [facility] Urine leukocyte esterase det ection by automated test stripOrdered By: Jacob Farfan on 08-20-2022 Leukocyte esterase Auto test strip Ql (U) Negative Negative [facility] Urobilinogen Auto test strip (U) [Mass/Vol]Ordered By: Jacob Farfan on 08-20-2022 Urobilinogen (U) [Mass/Vol] Normal mg/dL Normal [facility] Vitamin D+Metabolites [Mass/ volume] in Serum or PlasmaOrdered By: Ezekiel Mathew on 08-20-2022 Vitamin D+Metabolites [Mass/Vol] < 7.0 ng/mL 30-100 [facility] Comment on above: VITAMIN D STATUS 25( OH)VITAMIN D RANGE (ng/mL) Deficient <20 Insufficient 20 to <30Sufficient 30 to 100Reference: Bernie MF,Hina ARELLANO, Tran THIBODEAUX, et al. Evaluation,treatment, and prevention of vitamin D deficiency; an Endocrine Society clinical practice guideline. JCEM. 2010; 96(7):1911-30. WBC Auto (Bld) [#/Vol]Ordere d By: Jacob Farfan on 08-20-2022 WBC (Bld) [#/Vol] 8.5 10*3/uL 3.8-11.6 [facility] pH Auto test strip (U)Ordere d By: Jacob Farfan on 08-20-2022 pH (U) 6.5 [pH] 5.0-9.0 [facility] CHEMISTRYOrdered By: SYSTEM SYSTEM on 08-19-2022 Albumin [...] 9.2 E9/L Normal 4.0 - 11.0 E9/L [facility] [place]eAutoSS CBC AUTO DIFFon 08-06-2022 BASO # 0.0 103/ul Normal 0.0-0.1 [facility] Comment on above: Performed By: #### C BC ####[facility] [address] [place] [address]Dr. Devin Suresh Basophils/100 WBC (Bld) 0.5 % Normal 0.2-2.0 [facility] Comment on above: Performed By: #### C BC ####[facility] Typpmiyqle[address] [place], [place] [address]Dr. Devin Suresh EO # 0.1 103/ul Normal 0.0-0.7 [facility] Comment on above: Performed By: #### C BC ####[facility] Vsttlgrdbc75[address] [place], [place] [address]Dr. Devin Suresh Eosinophils/100 WBC (Bld) 1.6 % Normal 0.9-7.0 [facility] Comment on above: Performed By: #### C BC ####[facility] Sygmrndmms[address] [place], [place] [address]Dr. Devin Suresh Erythrocyte distribution width (RBC) [Ratio] 13.3 % Normal 11.0-15.0 [facility] Comment on above: Performed By: #### C BC ####[facility] Fvldmajxbl[address] [place], [place] [address]Dr. Devin Suresh Hematocrit (Bld) [Volume fraction] 30.1 % Critically low 36.0-48.0 [facility] Comment on above: Performed By: #### C BC ####[facility] Fixapjjnfi6689[address] [place], [place] [address]Dr. Devin Suresh Hemoglobin (Bld) [Mass/Vol] 10.6 g/dL Critically low 12.0-16.0 [facility] Comment on above: Performed By: #### C BC ####[facility] Laazkdwcqm23[address] [place], [place] [address]Dr. Devin Suresh IG # 0.04 10e3/ul Critically high 0.00-0.03 [facility] Comment on above: Performed By: #### C BC ####[facility] Lowyfsxqfe[address] [place] [id number] Devin Suresh IG % 0.6 % Critically high 0.0-0.5 [facility] Comment on above: Performed By: #### C BC ####[facility] Lhcikpvset11[address] [place] [address]DrMaris Devin Kerwin LYMPH # 2.3 103/ul Normal 1.2-3.8 [facility] Comment on above: Performed By: #### C BC ####[facility] Csjgpwgchb16[address] [place], [place] [address]DrMaris Devin Kerwin Lymphocytes/100 WBC (Bld) 36.0 % Normal 20.5-60.0 [facility] Comment on above: Performed By: #### C BC ####[facility] Uyzflrfklw89[address] [place], [place] [address]DrMaris Devin Kerwin MANUAL DIFF REQ NO Normal [facility] Comment on above: Performed By: #### C BC ####[facility] Ovqohkvdqr46[address] [place], [place] [address]DrMaris Devin Suresh MCH (RBC) [Entitic mass] 31.1 pg Normal 26.7-34.0 [facility] Comment on above: Performed By: #### C BC ####[facility] Imzsagyxvm17[address] [place] [phone] Devin Kerwin MCHC (RBC) [Mass/Vol] 35.2 g/dL Normal 29.9-35.2 [facility] Comment on above: Performed By: #### C BC ####[facility] Gjeqtfxlhd[address] [place], [place] [id number] Devin Kerwin MCV (RBC) [Entitic vol] 88.3 fL Normal 81.0-99.0 [facility] Comment on above: Performed By: #### C BC ####[facility] Xpuxzryjwq70[address] [place], [place] [address]DrMaris Tishemliy Suresh MONO # 0.4 103/ul Normal 0.3-0.8 [facility] Comment on above: Performed By: #### C BC ####[facility] Yxipikfafi4[address] [place] [address]Dr. Devin Suresh Monocytes/100 WBC (Bld) 6.1 % Normal 1.7-12.0 [facility] Comment on above: Performed By: #### C BC ####[facility] Kyznuldain32[address] [place] [address]Dr. Devin Suresh NEUT # 3.5 103/ul Normal 1.4-6.5 [facility] Comment on above: Performed By: #### C BC ####[facility] Ranvlqodbs8730 [place] [address]Dr. Devin Suresh Neutrophils/100 WBC (Bld) 55.2 % Normal 43.0-75.0 [facility] Comment on above: Performed By: #### C BC ####[facility] Lrsotptqtl8427 [place] [address]Dr. Devin Suresh Platelet mean volume (Bld) [Entitic vol] 8.3 fL Critically low 9.5-13.5 [facility] Comment on above: Performed By: #### C BC ####[facility] Njfdbmrtgy8[address] [place] [address]Dr. Devin Suresh PLT 244 103/ul Normal 150-450 [facility] Comment on above: Performed By: #### C BC ####[facility] Bcxlielvhw66[address] [place] [address]Dr. Devin Suresh RBC 3.41 106/ul Critically low 4.20-5.40 [facility] Comment on above: Performed By: #### C BC ####[facility] Dfyilnbmok4857 [place] [phone]. Devin Suresh WBC 6.3 103/ul Normal 4.0-11.0 [facility] Comment on above: Performed By: #### C BC ####[facility] Auhjgzgzhv8761 [place] [phone]. Devin Suresh POINT OF CARE GLUCOSEon 07-23 Glucose [Mass/Vol] 209 mg/dL Critically high 74-106 T [facility] Comment on above: Performed By: #### P OCGLUC ####[facility] Kwgbdoajcl9[address] [place], [place] [address]Dr. Devin Suresh PROF 14(COMP METB)on 023 Albumin [Mass/Vol] 3.2 g/dL Critically low 3.4-5.0 [facility] Comment on above: Performed By: #### C MP ####[facility] Pucggycqvg1797[address] [place], [place] [address]Dr. Devin Sruesh Albumin/Globulin [Mass ratio] 1.1 {ratio} Normal [facility] Comment on above: Performed By: #### C MP ####[facility] Fxehzzrsdg8915[address] [place], [place] [address]Dr. Devin Suresh ALP [Catalytic activity/Vol] 85 U/L Normal 46-116 [facility] Comment on above: Performed By: #### C MP ####[facility] Omdibcrrsb2099[address] [place], [place] [address]Dr. Devin Suresh ALT [Catalytic activity/Vol] 14 U/L Normal 14-59 [facility] Comment on above: Performed By: #### C MP ####[facility] Ulezltzkbb876[address] [place], [place] [address]Dr. Devin Suresh Anion gap [Moles/Vol] 12.7 mmol/L Normal [facility] Comment on above: Performed By: #### C MP ####[facility] Ayydbeqhdp8318[address] [place], [place] [address]Dr. Devin Suresh AST [Catalytic activity/Vol] 14 U/L Critically low 15-37 [facility] Comment on above: Performed By: #### C MP ####[facility] Qzbdakhyzr5808[address] [place], [place] [address]Dr. Devin Suresh Bilirubin [Mass/Vol] 0.4 mg/dL Normal 0.2-1.0 [facility] Comment on above: Performed By: #### C MP ####[facility] Gghzdowivc376[address] [place], [place] [address]Dr. Devin Suresh Calcium [Mass/Vol] 7.9 mg/dL Critically low 8.5-10.1 Th [facility] Comment on above: Performed By: #### C MP ####[facility] Dfrwarxriu8[address] [place] [address]Dr. Devin Suresh Chloride [Moles/Vol] 106 mmol/L Normal 98-107 [facility] Comment on above: Performed By: #### C MP ####[facility] Ppyrbvgbel3144[address] [place], [place] [address]Dr. Devin Suresh CO2 [Moles/Vol] 23.5 mmol/L Normal 21.0-32.0 [facility] Comment on above: Performed By: #### C MP ####[facility] Dlvrzjkctm767[address] [place], [place] [address]Dr. Devin Suresh Creatinine [Mass/Vol] 0.88 mg/dL Normal 0.55-1.02 [facility] Comment on above: Performed By: #### C MP ####[facility] Zhagyvatwc[address] [place], [place] [address]Dr. Devin Suresh EGFR-AF CONGOLESE >60 Normal >=60 [facility] Comment on above: Performed By: #### C MP ####[facility] Itrvxxxtfl4848[address] [place], [place] [address]Dr. Devin Suresh EGFR-NON AF CONGOLESE >60 Normal >=60 [facility] Comment on above: Performed By: #### C MP ####[facility] Lhmupzedtn3087[address] [place], [place] [address]Dr. Devin Suresh Globulin (S) [Mass/Vol] 2.8 g/dL Normal [facility] Comment on above: Performed By: #### C MP ####[facility] Hnymqnbfij7049 [place] [address]Dr. Devin Suresh Glucose [Mass/Vol] 165 mg/dL Critically high 74-106 T [facility] Comment on above: Performed By: #### C MP ####[facility] Noguinpqgp3432 [place] [address]Dr. Tishemily Kerwin Potassium [Moles/Vol] 3.2 mmol/L Critically low 3.5-5.1 [facility] Comment on above: Performed By: #### C MP ####[facility] Iuxrmecsuh485[address] [place] [address]Dr. Devin Suresh Protein [Mass/Vol] 6.0 g/dL Critically low 6.4-8.2 Th e [facility] Comment on above: Performed By: #### C MP ####[facility] Dnokcigzbm2139[address] [place], [place] [address]Dr. Tishemily Suresh Sodium [Moles/Vol] 139 mmol/L Normal 136-145 [facility] Comment on above: Performed By: #### C MP ####[facility] Vyzravkyrs1514[address] [place], [place] [address]Dr. Devin Kerwin Urea nitrogen [Mass/Vol] 5.0 mg/dL Critically low 7.0-18.0 [facility] Comment on above: Performed By: #### C MP ####[facility] Ntkyzmuykh0138[address] [place], [place] [address]Dr. Devin Kerwin Urea nitrogen/Creatinine [Mass ratio] 5.6 mg/mg Normal [facility] Comment on above: Performed By: #### C MP ####[facility] Yhxrgkiwqh485[address] [place], [place] [address]Dr. Devin Kerwin CBC AUTO DIFFon 08-05-2022 BASO # 0.0 103/ul Normal 0.0-0.1 [facility] Comment on above: Performed By: #### C BC ####[facility] Eaehdgnkxq1592[address] [place], [place] [address]Dr. Devin Suresh Basophils/100 WBC (Bld) 0.3 % Normal 0.2-2.0 [facility] Comment on above: Performed By: #### C BC ####[facility] Kosstgmmjs3137[address] [place], [place] [address]Dr. Devin Suresh EO # 0.1 103/ul Normal 0.0-0.7 [facility] Comment on above: Performed By: #### C BC ####[facility] Ffkbqjydsv1679[address] [place], [place] [address]Dr. Devin Suresh Eosinophils/100 WBC (Bld) 1.7 % Normal 0.9-7.0 [facility] Comment on above: Performed By: #### C BC ####[facility] Ngwgcqenru6732[address] [place], [place] [address]Dr. Devin Suresh Erythrocyte distribution width (RBC) [Ratio] 13.4 % Normal 11.0-15.0 [facility] Comment on above: Performed By: #### C BC ####[facility] Abxubimtpd986[address] [place], [place] [address]Dr. Devin Suresh Hematocrit (Bld) [Volume fraction] 28.6 % Critically low 36.0-48.0 [facility] Comment on above: Performed By: #### C BC ####[facility] Wfgluhyhts2934[address] [place], [place] [address]Dr. Devin Suresh Hemoglobin (Bld) [Mass/Vol] 9.8 g/dL Critically low 12.0-16.0 [facility] Comment on above: Performed By: #### C BC ####[facility] Dpsfsfqzkb23[address] [place], [place] [address]Dr. Devin Suresh IG # 0.04 10e3/ul Critically high 0.00-0.03 [facility] Comment on above: Performed By: #### C BC ####[facility] Smihhdgvya7812[address] [place], [place] [address]Dr. Devin Suresh IG % 0.7 % Critically high 0.0-0.5 [facility] Comment on above: Performed By: #### C BC ####[facility] Kzyzyvmmih4[address] [place], [place] [address]DrMaris Suresh LYMPH # 1.8 103/ul Normal 1.2-3.8 [facility] Comment on above: Performed By: #### C BC ####[facility] Aviwoktwii7639[address] [place], [place] [address]DrMaris Suresh Lymphocytes/100 WBC (Bld) 30.9 % Normal 20.5-60.0 [facility] Comment on above: Performed By: #### C BC ####[facility] Yqyrbcqkve[address] [place], [place] [address]DrMaris Suresh MANUAL DIFF REQ NO Normal [facility] Comment on above: Performed By: #### C BC ####[facility] Nluqlvttzh[address] [place] [address]Dr. Devin Suresh MCH (RBC) [Entitic mass] 30.0 pg Normal 26.7-34.0 [facility] Comment on above: Performed By: #### C BC ####[facility] Elbpdngonz4826 [place] [address]Dr. Devin Suresh MCHC (RBC) [Mass/Vol] 34.3 g/dL Normal 29.9-35.2 [facility] Comment on above: Performed By: #### C BC ####[facility] Mvzmstqmbh2123[address] [place], [place] [address]DrMaris Suresh MCV (RBC) [Entitic vol] 87.5 fL Normal 81.0-99.0 [facility] Comment on above: Performed By: #### C BC ####[facility] Sveygheyju4[address] [place], [place] [address]DrMaris Suresh MONO # 0.3 103/ul Normal 0.3-0.8 [facility] Comment on above: Performed By: #### C BC ####[facility] Ynhirllfxc3536[address] [place], [place] [address]DrMaris Suresh Monocytes/100 WBC (Bld) 4.3 % Normal 1.7-12.0 [facility] Comment on above: Performed By: #### C BC ####[facility] Rbplsiboyg364[address] [place], [place] [address]DrMaris Suresh NEUT # 3.6 103/ul Normal 1.4-6.5 [facility] Comment on above: Performed By: #### C BC ####[facility] Ggffiiouqw5765[address] [place], [place] [address]DrMaris Suresh Neutrophils/100 WBC (Bld) 62.1 % Normal 43.0-75.0 [facility] Comment on above: Performed By: #### C BC ####[facility] Zrtrjygbuv9[address] [place], [place] [address]DrMaris Suresh Platelet mean volume (Bld) [Entitic vol] 8.5 fL Critically low 9.5-13.5 [facility] Comment on above: Performed By: #### C BC ####[facility] Pqqkwnqdbi4[address] [place] [address]Dr. Devin Suresh PLT 211 103/ul Normal 150-450 [facility] Comment on above: Performed By: #### C BC ####[facility] Nwpvleaboi5879 [place] [address]Dr. Devin Suresh RBC 3.27 106/ul Critically low 4.20-5.40 [facility] Comment on above: Performed By: #### C BC ####[facility] Eubaclswen0645[address] [place], [place] [address]Dr. Devin Suresh WBC 5.9 103/ul Normal 4.0-11.0 [facility] Comment on above: Performed By: #### C BC ####[facility] Giyezfjzmw[address] [place], [place] [address]Dr. Devin Suresh CBC W MANUAL DIFFon 08-06-19 23 ANISOCYTOSIS 2+ Normal [facility] Comment on above: Performed By: #### C BCMAN ####[facility] Nkwnpxmqlo18[address] [place], [place] [address]Dr. Devin Suresh ATYPICAL LYMPH # Normal [facility] Comment on above: Performed By: #### C BCMAN ####[facility] Igznzvpjtm6[address] [place], [place] [address]Dr. Devin Kerwin ATYPICAL LYMPH % Normal [facility] Comment on above: Performed By: #### C BCMAN ####[facility] Wzwobtantm29[address] [place], [place] [address]Dr. Devin Suresh BAND # 0.1 103/ul Normal 0.0-0.3 [facility] Comment on above: Performed By: #### C BCMAN ####[facility] Pwewylswgp6[address] [place], [place] [address]Dr. Devin Suresh BAND % 1 % Normal 0-5 [facility] Comment on above: Performed By: #### C BCMAN ####[facility] Grhurpuqah[address] [place] [phone]. Devin Suresh BASOM # 0.10 103/ul Normal 0.00-0.10 [facility] Comment on above: Performed By: #### C BCMAN ####[facility] Sbmfljohwr5111 [place] [phone]. Devin Suresh BASOM % 2.0 % Normal 0.2-2.0 [facility] Comment on above: Performed By: #### C BCMAN ####[facility] Acylimsxvr1248 [place] [phone]. Devin Suresh BLAST # Normal [facility] Comment on above: Performed By: #### C BCMAN ####[facility] Ouksgpdaxr0489 [place] [address]Dr. Devin Suresh BLAST % Normal [facility] Comment on above: Performed By: #### C BCMARLEE ####[facility] Dnfscknomb[address] [place], [place] [address]Dr. Devin Suresh CORRECTED WBC Normal 4.0-11.0 [facility] Comment on above: Performed By: #### C BCMAN ####[facility] Cnckopkzvu96[address] [place], [place] [address]Dr. Devin Suresh EOS # 0.40 103/ul Normal 0.00-0.70 [facility] Comment on above: Performed By: #### C BCMAN ####[facility] Snlzvkifbh6184 [place] [address]Dr. Devin Suresh EOS% 8.0 % Critically high 0.9-7.0 [facility] Comment on above: Performed By: #### C BCMAN ####[facility] Yzazqvlngi1841 [place] [phone]. Devin Suresh HCT 29.5 % Critically low 36.0-48.0 The [facility] Comment on above: Performed By: #### C BCMAN ####[facility] Fqwddcugej9249 [place] [phone]. Devin Suresh HGB 10.0 g/dl Critically low 12.0-16.0 The [facility] Comment on above: Performed By: #### Isabell DELGADILLO ####[facility] Gzrvbkboay4324 [place] [phone]. Devin Suresh LYMPHM # 0.35 103/ul Critically low 1.20-3.80 [facility] Comment on above: Performed By: #### C ELIE ####[facility] Ylauwatgtl4640 [place] [phone]. Devin Suresh LYMPHM% 7.0 % Critically low 20.5-60.0 The [facility] Comment on above: Performed By: #### C ELIE ####[facility] Zlxxdeyrcu8137 [place] [phone]. Devin Suresh MCH 30.0 pg Normal 26.7-34.0 [facility] Comment on above: Performed By: #### C ELIE ####[facility] Nyoeuhkepl4736 [place] [address]Dr. Devin Suresh MCHC 33.9 g/dl Normal 29.9-35.2 [facility] Comment on above: Performed By: #### Isabell DELGADILLO ####[facility] Xxhpdzwenk0135 [place] [phone]. Devin Suresh MCV 88.6 fL Normal 81.0-99.0 [facility] Comment on above: Performed By: #### Isabell DELGADILLO ####[facility] Txvchbpsvc4323 [place] [phone]. Devin Suresh METAMYELOCYTE # 0.1 103/ul Normal [facility] Comment on above: Performed By: #### Isabell DELGADILLO ####[facility] Rnmgqjoegl7443 [place] [phone]. Devin Suresh METAMYELOCYTE % 2 % Normal [facility] Comment on above: Performed By: #### Isabell DELGADILLO ####[facility] Vtbsuyjhan[address] [place], [place] [address]Dr. Devin Suresh MONOM# 0.05 103/ul Critically low 0.30-0.80 [facility] Comment on above: Performed By: #### Isabell DELGADILLO ####[facility] [address]ks[address] [place] [address]Yy. Devin Suresh MONOM% 1.0 % Critically low 1.7-12.0 The [facility] Comment on above: Performed By: #### Isabell DELGADILLO ####[facility] Oksahqiwid6191 [place] [phone]. Devin Suresh MPV 8.5 fL Critically low 9.5-13.5 The [facility] Comment on above: Performed By: #### C ELIE ####[facility] Sdgzpasttv1704 [place] [phone]. Devin Suresh MYELOCYTE # Normal [facility] Comment on above: Performed By: #### Isabell DELGADILLO ####[facility] Qsbtyesftx[address] [place], [place] [address]Dr. Devin Suresh MYELOCYTE % Normal [facility] Comment on above: Performed By: #### Isabell DELGADILLO ####[facility] Vdnfxjxqvn6879 [place] [address]Dr. Devin Suresh NRBC Normal [facility] Comment on above: Performed By: #### C ELIE ####[facility] Pprwxtqyfo3470 [place] [phone]. Devin Suresh PLT 207 103/ul Normal 150-450 [facility] Comment on above: Performed By: #### C ELIE ####[facility] Laghgqfuut0542 [place] [phone]. Devin Suresh POIKILOCYTOSIS 2+ Normal The [facility] Comment on above: Performed By: #### C ELIE ####[facility] Zztdynqqyj8695 [place] [phone]. Devin Suresh RBC 3.33 106/ul Critically low 4.20-5.40 [facility] Comment on above: Performed By: #### C EILE ####[facility] Genueeaagr0238 [place] [phone]. Devin Suresh RDW 13.3 % Normal 11.0-15.0 [facility] Comment on above: Performed By: #### Isabell DELGADILLO ####[facility] Jewwxqxzbl6697 [place] [address]Dr. Devin Suresh SEG # 3.95 103/ul Normal 1.40-6.50 [facility] Comment on above: Performed By: #### C BCMAN ####[facility] Maagsabwmr3016 [place] [address]Dr. Devin Suresh SEG % 79.0 % Critically high 43.0-75.0 [facility] Comment on above: Performed By: #### C BCMAN ####[facility] Jrhabebwvv4558 [place] [address]Dr. Devin Suresh WBC 5.0 103/ul Normal 4.0-11.0 [facility] Comment on above: Performed By: #### C ELIE ####[facility] Twbzpcnudc[address] [place] [address]Dr. Devin Suresh ECHOCARDIO M/2D COMPLETEon 0 08-05-2022 ECHOCARDIO M/2D COMPLETE Normal [facility] POINT OF CARE GLUCOSEon 07-23 Glucose [Mass/Vol] 151 mg/dL Critically high -106 [facility] Comment on above: Performed By: #### P OCGLUC ####[facility] Gmhmotwigc[address] [place] [address]Dr. Devin Suresh Glucose [Mass/Vol] 188 mg/dL Critically high [address] [place] [address] Comment on above: Performed By: #### P OCGLUC ####[facility] Lxybejizsb5[address] [place] [address]Dr. Devin Suresh Glucose [Mass/Vol] 243 mg/dL Critically high -106 [facility] Comment on above: Performed By: #### P OCGLUC ####[facility] Yjbhsulldp0020 [place] [address]Dr. Devin Suresh Glucose [Mass/Vol] 259 mg/dL Critically high [facility]106 [facility] Comment on above: Performed By: #### P OCGLUC ####[facility] Ktwybbnjds6119 [place] [address]Dr. Tishemily Suresh PROF 14(COMP METB)on 023 Albumin [Mass/Vol] 3.1 g/dL Critically low 3.4-5.0 [facility] Comment on above: Performed By: #### C MP ####[facility] Zrbonjulbj2397 [place] [address]Dr. Devin Suresh Albumin/Globulin [Mass ratio] 1.1 {ratio} Normal [facility] Comment on above: Performed By: #### C MP ####[facility] Emmbzpblnz2190 [place] [address]Dr. Devin Suresh ALP [Catalytic activity/Vol] 86 U/L Normal 46-116 [facility] Comment on above: Performed By: #### C MP ####[facility] Voewczaegi[address] [place], [place] [address]Dr. Devin Suresh ALT [Catalytic activity/Vol] 12 U/L Critically low 14-59 [facility] Comment on above: Performed By: #### C MP ####[facility] Aighockynt[address] [place], [place] [address]Dr. Devin Suresh Anion gap [Moles/Vol] 13.2 mmol/L Normal [facility] Comment on above: Performed By: #### C MP ####[facility] Hfhaeyjtld[address] [place], [place] [address]Dr. Devin Suresh AST [Catalytic activity/Vol] 13 U/L Critically low 15-37 [facility] Comment on above: Performed By: #### C MP ####[facility] Secgspbeyv4[address] [place], [place] [address]Dr. Devin Suresh Bilirubin [Mass/Vol] 0.4 mg/dL Normal 0.2-1.0 [facility] Comment on above: Performed By: #### C MP ####[facility] Iuhrihvluf[address] [place], [place] [address]Dr. Devin Suresh Calcium [Mass/Vol] 8.0 mg/dL Critically low 8.5-10.1 [facility] Comment on above: Performed By: #### C MP ####[facility] Fkurworiyo22[address] [place], [place] [address]Dr. Devin Suresh Chloride [Moles/Vol] 108 mmol/L Critically high 98-107 [facility] Comment on above: Performed By: #### C MP ####[facility] Zugeilijvm6430 [place] [address]Dr. Devin Suresh CO2 [Moles/Vol] 21.3 mmol/L Normal 21.0-32.0 [facility] Comment on above: Performed By: #### C MP ####[facility] Aglqvagnuq5911 [place] [phone]. Devin Suresh Creatinine [Mass/Vol] 0.76 mg/dL Normal 0.55-1.02 [facility] Comment on above: Performed By: #### C MP ####[facility] Fbcswaxjjl6155 [place] [address]Dr. Devin Suresh EGFR-AF CONGOLESE >60 Normal >=60 [facility] Comment on above: Performed By: #### C MP ####[facility] Yzixxmcsbb6023 [place] [address]Dr. Devin Suresh EGFR-NON AF CONGOLESE >60 Normal >=60 [facility] Comment on above: Performed By: #### C MP ####[facility] Dtempdgcyr6071 [place] [address]Dr. Devin Suresh Globulin (S) [Mass/Vol] 2.8 g/dL Normal [facility] Comment on above: Performed By: #### C MP ####[facility] Wiuowbukak1408 [place] [address]Dr. Devin Suresh Glucose [Mass/Vol] 235 mg/dL Critically high 74-106 [facility] Comment on above: Performed By: #### C MP ####[facility] Lwxqswhgzd9595 [place] [phone]. Devin Suresh Potassium [Moles/Vol] 3.5 mmol/L Normal 3.5-5.1 [facility] Comment on above: Performed By: #### C MP ####[facility] Annshftdqf7282 [place] [address]Dr. Devin Suresh Protein [Mass/Vol] 5.9 g/dL Critically low 6.4-8.2 [facility] Comment on above: Performed By: #### C MP ####[facility] Hnmvqlmexz8050 [place] [phone]. Devin Suresh Sodium [Moles/Vol] 139 mmol/L Normal 136-145 [facility] Comment on above: Performed By: #### C MP ####[facility] Fsdmevshcg0743 [place] [phone]. Devin Suresh Urea nitrogen [Mass/Vol] 4.0 mg/dL Critically low 7.0-18.0 [facility] Comment on above: Performed By: #### C MP ####[facility] Ycogxhgmpw1356 [place] [phone]. Devin Suresh Urea nitrogen/Creatinine [Mass ratio] 5.3 mg/mg Normal [facility] Comment on above: Performed By: #### C MP ####[facility] Mjsnocxwud0180 [place] [address]Dr. Devin Suresh TROPONIN, HIGH SENSITIVITYon 08-05-2022 HSTROP 5.5 pg/mL Normal 4.0-51.3 [facility] Comment on above: Result Comment: CUT- OFF POINTS HAVE BEEN ESTABLISHED BASED ON THE FOURTH UNIVERSAL DEFINITIONS OF MYOCARDIALINFARCTION. THE UPPER REFERENCE LIMIT (URL) OF TROPONIN, DEFINED THE 99TH PERCENTILE OFcTnI DISTRIBUTION IN A REFERENCE POPULATION, HAS BEEN CONFIRMED THE DECISION THRESHOLDFOR NM DIAGNOSIS. Performed By: #### H STROPN ####[facility] Viicujfvkc9364 [place] [phone]. Devin Suresh HSTROP 7.5 pg/mL Normal 4.0-51.3 [facility] Comment on above: Result Comment: CUT- OFF POINTS HAVE BEEN ESTABLISHED BASED ON THE FOURTH UNIVERSAL DEFINITIONS OF MYOCARDIALINFARCTION. THE UPPER REFERENCE LIMIT (URL) OF TROPONIN, DEFINED THE 99TH PERCENTILE OFcTnI DISTRIBUTION IN A REFERENCE POPULATION, HAS BEEN CONFIRMED THE DECISION THRESHOLDFOR NM DIAGNOSIS. Performed By: #### H STROPN ####[facility] Aoytsqtdse3632 [place] [phone]. Devin Suresh HSTROP 6.9 pg/mL Normal 4.0-51.3 [facility] Comment on above: Result Comment: CUT- OFF POINTS HAVE BEEN ESTABLISHED BASED ON THE FOURTH UNIVERSAL DEFINITIONS OF MYOCARDIALINFARCTION. THE UPPER REFERENCE LIMIT (URL) OF TROPONIN, DEFINED THE 99TH PERCENTILE OFcTnI DISTRIBUTION IN A REFERENCE POPULATION, HAS BEEN CONFIRMED THE DECISION THRESHOLDFOR NM DIAGNOSIS. Performed By: #### H STROPN ####[facility] Gnaxtapbqj7718 [place] [address]Dr. Devin Kerwin CBC AUTO DIFFon 08-04-2022 BASO # 0.0 103/ul Normal 0.0-0.1 [facility] Comment on above: Performed By: #### C BC ####[facility] Hrpnengptz6766 [place] [address]Dr. Devin Suresh Basophils/100 WBC (Bld) 0.4 % Normal 0.2-2.0 [facility] Comment on above: Performed By: #### C BC ####[facility] Mximeviesx[address] [place], [place] [address]Dr. Devin Suresh EO # 0.1 103/ul Normal 0.0-0.7 [facility] Comment on above: Performed By: #### C BC ####[facility] Gdaarqtlci[address] [place], [place] [address]Dr. Tishemily Suresh Eosinophils/100 WBC (Bld) 2.3 % Normal 0.9-7.0 [facility] Comment on above: Performed By: #### C BC ####[facility] Sqianzhcma[address] [place], [place] [address]Dr. Devin Suresh Erythrocyte distribution width (RBC) [Ratio] 13.8 % Normal 11.0-15.0 [facility] Comment on above: Performed By: #### C BC ####[facility] Jskehdzfzc8[address] [place], [place] [address]Dr. Devin Suresh Hematocrit (Bld) [Volume fraction] 29.6 % Critically low 36.0-48.0 [facility] Comment on above: Performed By: #### C BC ####[facility] Nocokxsgbm[address] [place], [place] [address]Dr. Devin Suresh Hemoglobin (Bld) [Mass/Vol] 10.0 g/dL Critically low 12.0-16.0 [facility] Comment on above: Performed By: #### C BC ####[facility] Osyhsjbpea0586 [place] [address]Dr. Devin Suresh IG # 0.02 10e3/ul Normal 0.00-0.03 [facility] Comment on above: Performed By: #### C BC ####[facility] Saanzejpwx1621 [place] [address]Dr. Devin uSresh IG % 0.4 % Normal 0.0-0.5 [facility] Comment on above: Performed By: #### C BC ####[facility] Bikmixpozy8594 [place] [address]Dr. Devin Suresh LYMPH # 2.4 103/ul Normal 1.2-3.8 [facility] Comment on above: Performed By: #### C BC ####[facility] Vdhyfnpcrc1809 [place] [address]DrMaris Suresh Lymphocytes/100 WBC (Bld) 46.2 % Normal 20.5-60.0 [facility] Comment on above: Performed By: #### C BC ####[facility] Irifjkeysc1981 [place] [address]DrMaris Suresh MANUAL DIFF REQ NO Normal [facility] Comment on above: Performed By: #### C BC ####[facility] Ydrjkjijca5409 [place] [address]Dr. Devin Suresh MCH (RBC) [Entitic mass] 30.7 pg Normal 26.7-34.0 [facility] Comment on above: Performed By: #### C BC ####[facility] Ptdukftesr8553 [place] [address]Dr. Devin Suresh MCHC (RBC) [Mass/Vol] 33.8 g/dL Normal 29.9-35.2 [facility] Comment on above: Performed By: #### C BC ####[facility] Gerbgqwemw2295 [place] [address]Dr. Devin Suresh MCV (RBC) [Entitic vol] 90.8 fL Normal 81.0-99.0 [facility] Comment on above: Performed By: #### C BC ####[facility] Nbpxpwrqgw0642 [place] [phone]. Devin Suresh MONO # 0.4 103/ul Normal 0.3-0.8 [facility] Comment on above: Performed By: #### C BC ####[facility] Ludzqiwsfo4909 [place] [phone]. Devin Suresh Monocytes/100 WBC (Bld) 7.6 % Normal 1.7-12.0 [facility] Comment on above: Performed By: #### C BC ####[facility] Oqdeiavjbu3544 [place] [phone]. Devin Suresh NEUT # 2.2 103/ul Normal 1.4-6.5 [facility] Comment on above: Performed By: #### C BC ####[facility] Bbmgoqalhu2525 [place] [address]Dr. Devin Suresh Neutrophils/100 WBC (Bld) 43.1 % Normal 43.0-75.0 [facility] Comment on above: Performed By: #### C BC ####[facility] Gqcburqobz8480 [place] [phone]. Devin Suresh Platelet mean volume (Bld) [Entitic vol] 8.7 fL Critically low 9.5-13.5 [facility] Comment on above: Performed By: #### C BC ####[facility] Vwshligwyk4343 [place] [phone]. Devin Suresh PLT 188 103/ul Normal 150-450 [facility] Comment on above: Performed By: #### C BC ####[facility] Zlejycgnpq2914 [place] [phone]. Devin Suresh RBC 3.26 106/ul Critically low 4.20-5.40 [facility] Comment on above: Performed By: #### C BC ####[facility] Iddjqrlzpt6541 [place] [phone]. Devin Suresh WBC 5.1 103/ul Normal 4.0-11.0 [facility] Comment on above: Performed By: #### C BC ####[facility] Xhptiyfrhk1611 [place] [phone]. Tishemily Kerwin POINT OF CARE GLUCOSEon 07-23 Glucose [Mass/Vol] 129 mg/dL Critically high [address] [place] [address] Comment on above: Performed By: #### P OCGLUC ####[facility] Gukgqzqrmw9480 [place] [phone]. Devin Suresh Glucose [Mass/Vol] 157 mg/dL Critically high -106 [facility] Comment on above: Performed By: #### P OCGLUC ####[facility] Jsxisyyiqy0512 [place] [phone]. Tishemily Suresh Glucose [Mass/Vol] 228 mg/dL Critically high [address] [place] [address] Comment on above: Performed By: #### P OCGLUC ####[facility] Ebruipmvep1440 [place] [address]Dr. Devin Suresh Glucose [Mass/Vol] 327 mg/dL Critically high [address] [place] [address] Comment on above: Performed By: #### P OCGLUC ####[facility] Jgdbghbpbs2028 [place] [phone]. Devin Suresh PROF 14(COMP METB)on 023 Albumin [Mass/Vol] 2.9 g/dL Critically low 3.4-5.0 Th [facility] Comment on above: Performed By: #### C MP ####[facility] Tlzvgkblib0016 [place] [address]Dr. Devin Suresh Albumin/Globulin [Mass ratio] 1.1 {ratio} Normal [facility] Comment on above: Performed By: #### C MP ####[facility] Ceiufwvrui6293 [place] [address]Dr. Devin Suresh ALP [Catalytic activity/Vol] 85 U/L Normal 46-116 [facility] Comment on above: Performed By: #### C MP ####[facility] Gqapbceyzn4956 [place] [address]Dr. Devin Suresh ALT [Catalytic activity/Vol] 14 U/L Normal 14-59 [facility] Comment on above: Performed By: #### C MP ####[facility] Xeusipnzgo4812 [place] [phone]. Devin Suresh Anion gap [Moles/Vol] 13.3 mmol/L Normal Th [facility] Comment on above: Performed By: #### C MP ####[facility] Tjugcjmwsq8997 [place] [phone]. Devin Suresh AST [Catalytic activity/Vol] 11 U/L Critically low 15-37 [facility] Comment on above: Performed By: #### C MP ####[facility] Eqnlqhawcx3905 [place] [phone]. Devin Kerwin Bilirubin [Mass/Vol] 0.2 mg/dL Normal 0.2-1.0 [facility] Comment on above: Performed By: #### C MP ####[facility] Zjoeqfrqmt3594 [place] [phone]. Devin Suresh Calcium [Mass/Vol] 7.5 mg/dL Critically low 8.5-10.1 [facility] Comment on above: Performed By: #### C MP ####[facility] Yyugfjjqgq1899 [place] [address]Dr. Devin Kerwin Chloride [Moles/Vol] 109 mmol/L Critically high 98-107 [facility] Comment on above: Performed By: #### C MP ####[facility] Hivouxoqog8613 [place] [phone]. Tishemily Kerwin CO2 [Moles/Vol] 21.6 mmol/L Normal 21.0-32.0 [facility] Comment on above: Performed By: #### C MP ####[facility] Orgccwtbrf0244 [place] [phone]. Devin Kerwin Creatinine [Mass/Vol] 1.15 mg/dL Critically high 0.55-1.02 [facility] Comment on above: Performed By: #### C MP ####[facility] Hpoigphrfk7798 [place] [phone]. Devin Kerwin EGFR-AF CONGOLESE >60 Normal >=60 [facility] Comment on above: Performed By: #### C MP ####[facility] Ztnjxmchsx5347 [place] [phone]. Devin Suresh EGFR-NON AF CONGOLESE 51 mL/min/1.73m2 Critically low >=60 [facility] Comment on above: Performed By: #### C MP ####[facility] Vysfwbchwk0828 [place] [address]Dr. Devin Suresh Globulin (S) [Mass/Vol] 2.6 g/dL Normal [facility] Comment on above: Performed By: #### C MP ####[facility] Nkfswwbyuv5667 [place] [address]Dr. Devin Suresh Glucose [Mass/Vol] 268 mg/dL Critically high 74-106 [facility] Comment on above: Performed By: #### C MP ####[facility] Sqdpmondzv7509 [place] [address]Dr. Devin Suresh Potassium [Moles/Vol] 3.9 mmol/L Normal 3.5-5.1 [facility] Comment on above: Performed By: #### C MP ####[facility] Gzgztfynsu6[address] [place], [place] [address]Dr. Devin Suresh Protein [Mass/Vol] 5.5 g/dL Critically low 6.4-8.2 Th [facility] Comment on above: Performed By: #### C MP ####[facility] Adgwtyhwlc89[address] [place], [place] [address]Dr. Devin Suresh Sodium [Moles/Vol] 140 mmol/L Normal 136-145 [facility] Comment on above: Performed By: #### C MP ####[facility] Fqpndvxkcw1805 [place] [address]Dr. Devin Suresh Urea nitrogen [Mass/Vol] 13.0 mg/dL Normal 7.0-18.0 [facility] Comment on above: Performed By: #### C MP ####[facility] Gshujqqbwr9341 [place] [address]Dr. Devin Suresh Urea nitrogen/Creatinine [Mass ratio] 11.3 mg/mg Normal [facility] Comment on above: Performed By: #### C MP ####[facility] Vstvbrpozg3613 [place] [phone]. Devin Suresh CBC AUTO DIFFon 08-03-2022 BASO # 0.0 103/ul Normal 0.0-0.1 [facility] Comment on above: Performed By: #### C BC ####[facility] Uqpgyvfjru1884 [place] [phone]. Devin Suresh Basophils/100 WBC (Bld) 0.6 % Normal 0.2-2.0 [facility] Comment on above: Performed By: #### C BC ####[facility] Cwvvlnklwp[address] [place], [place] [address]Dr. Devin Suresh EO # 0.1 103/ul Normal 0.0-0.7 [facility] Comment on above: Performed By: #### C BC ####[facility] Cdkrqsgloi[address] [place], [place] [address]Dr. Devin Kerwin Eosinophils/100 WBC (Bld) 3.1 % Normal 0.9-7.0 [facility] Comment on above: Performed By: #### C BC ####[facility] Qgjbyrjqxt[address] [place], [place] [address]Dr. Devin Suresh Erythrocyte distribution width (RBC) [Ratio] 13.6 % Normal 11.0-15.0 [facility] Comment on above: Performed By: #### C BC ####[facility] Ibjnygpumn232[address] [place], [place] [address]Dr. Devin Suresh Hematocrit (Bld) [Volume fraction] 27.8 % Critically low 36.0-48.0 [facility] Comment on above: Performed By: #### C BC ####[facility] Ddzyurvvxt[address] [place], [place] [address]Dr. Devin Suresh Hemoglobin (Bld) [Mass/Vol] 9.6 g/dL Critically low 12.0-16.0 [facility] Comment on above: Performed By: #### C BC ####[facility] Pqiyhelxbo[address] [place], [place] [address]Dr. Devin Suresh IG # 0.01 10e3/ul Normal 0.00-0.03 [facility] Comment on above: Performed By: #### C BC ####[facility] Vxoofpewpm8871 [place] [address]Dr. Tishemily Suresh IG % 0.3 % Normal 0.0-0.5 [facility] Comment on above: Performed By: #### C BC ####[facility] Xmkkoxeolz2357 [place] [phone] Tishemily Suresh LYMPH # 1.5 103/ul Normal 1.2-3.8 [facility] Comment on above: Performed By: #### C BC ####[facility] Khmpvjirix7726 [place] [address]Dr. Tishemily Suresh Lymphocytes/100 WBC (Bld) 41.2 % Normal 20.5-60.0 [facility] Comment on above: Performed By: #### C BC ####[facility] Pxbpbflgsy[address] [place], [place] [address]DrMaris Suresh MANUAL DIFF REQ NO Normal [facility] Comment on above: Performed By: #### C BC ####[facility] Zvgqnxmjgw4462 [place] [phone]. Devin Kerwin MCH (RBC) [Entitic mass] 31.0 pg Normal 26.7-34.0 [facility] Comment on above: Performed By: #### C BC ####[facility] Dctsijdwvw[address] [place], [place] [address]Dr. Devin Kerwin MCHC (RBC) [Mass/Vol] 34.5 g/dL Normal 29.9-35.2 [facility] Comment on above: Performed By: #### C BC ####[facility] [address]nqgwtkddh[address] [place], [place] [address]DrMaris Tishemily Suresh MCV (RBC) [Entitic vol] 89.7 fL Normal 81.0-99.0 [facility] Comment on above: Performed By: #### C BC ####[facility] Kquzdqnpwy7107 [place] [phone] Suresh MONO # 0.4 103/ul Normal 0.3-0.8 [facility] Comment on above: Performed By: #### C BC ####[facility] Kqnfsfxhlp2418 [place] [phone]. Devin Suresh Monocytes/100 WBC (Bld) 10.0 % Normal 1.7-12.0 [facility] Comment on above: Performed By: #### C BC ####[facility] Hfkauabtaj3709 [place] [phone]. Devin Suresh NEUT # 1.6 103/ul Normal 1.4-6.5 [facility] Comment on above: Performed By: #### C BC ####[facility] Rhxhwnxzrf1246 [place] [phone]. Devin Suresh Neutrophils/100 WBC (Bld) 44.8 % Normal 43.0-75.0 [facility] Comment on above: Performed By: #### C BC ####[facility] Mqwwnryppr2427 [place] [phone]. Devin Suresh Platelet mean volume (Bld) [Entitic vol] 8.7 fL Critically low 9.5-13.5 [facility] Comment on above: Performed By: #### C BC ####[facility] Bxfelgjtfc4976 [place] [phone]. Devin Suresh PLT 185 103/ul Normal 150-450 [facility] Comment on above: Performed By: #### C BC ####[facility] Vanaotpzsi6422 [place] [phone]. Devin Suresh RBC 3.10 106/ul Critically low 4.20-5.40 [facility] Comment on above: Performed By: #### C BC ####[facility] Qzqgzryfiy0970 [place] [phone]. Devin Suresh WBC 3.6 103/ul Critically low 4.0-11.0 [facility] Comment on above: Performed By: #### C BC ####[facility] Vdbltzhcom6065 [place] [phone]. Devin Suresh GI PANEL (PCR)on 08-03-2022 Adenovirus F 40/41 Not detected Normal NOT DETECTED [facility] Comment on above: Performed By: #### G IPANEL ####[facility] Ewzkippmec[address] [place], [place] [address]Dr. Devin Suresh Astrovirus Not detected Normal NOT DETECTED [facility] Comment on above: Performed By: #### G IPANEL ####[facility] Zspbjolvqu34[address] [place], [place] [address]Dr. Devin Suresh C. Diff toxin A/B Not detected Normal NOT DETECTED [facility] Comment on above: Performed By: #### G IPANEL ####[facility] Ffkgzdkchy84[address] [place], [place] [address]Dr. Devin Suresh Campylobacter Not detected Normal NOT DETECTED [facility] Comment on above: Performed By: #### G IPANEL ####[facility] Bnwrowyldm5[address] [place], [place] [address]Dr. Devin Suresh Cryptosporidium Not detected Normal NOT DETECTED [facility] Comment on above: Performed By: #### G IPANEL ####[facility] Rwabbcdsdx99[address] [place], [place] [address]Dr. Devin Suresh Cyclos. Cayetanensis Not detected Normal NOT DETECTED [facility] Comment on above: Performed By: #### G IPANEL ####[facility] Dkadsibsrn[address] [place], [place] [address]Dr. Devin Suresh E. Coli O157 Not Applicable Normal Not Applicable [facility] Comment on above: Performed By: #### G IPANEL ####[facility] Jvhzftfeny230[address] [place], [place] [address]Dr. Devin Suresh E. histolytica Not detected Normal NOT DETECTED [facility] [facility] Comment on above: Performed By: #### G IPANEL ####[facility] Xzhqsxnffm[address] [place], [place] [address]Dr. Devin Suresh EAEC Not detected Normal NOT DETECTED [facility] Comment on above: Performed By: #### G IPANEL ####[facility] Fktvoitghh17[address] [place], [place] [address]Dr. Devin Suresh EIEC Not detected Normal NOT DETECTED [facility] Comment on above: Performed By: #### G IPANEL ####[facility] My[address]dupbrj[address] [place] [address]Dr. Devin Suresh EPEC Not detected Normal NOT DETECTED [facility] Comment on above: Performed By: #### G IPANEL ####[facility] Wmubxucegc6[address] [place] [address]Dr. Devin Suresh ETEC Not detected Normal NOT DETECTED [facility] Comment on above: Performed By: #### G IPANEL ####[facility] Qdoogeqszc56[address] [place] [address]Dr. Devin Suresh G. Lamblia Not detected Normal NOT DETECTED [facility] Comment on above: Performed By: #### G IPANEL ####[facility] Oojereaxez33[address] [place], [place] [address]Dr. Devin Suresh GIPANEL CONTROLS PASSED Normal The [facility] Comment on above: Performed By: #### G IPANEL ####[facility] Wjdpdzbpze4829[address] [place], [place] [address]Dr. Devin Suresh [facility] HEADER GI PANEL BACTERIA Normal T [facility] Comment on above: Performed By: #### G IPANEL ####[facility] Xzwbzwmora11[address] [place], [place] [address]Dr. Devin Suresh [facility] DIARRHEAGEN IC E.COLI / SHIGELLA Normal [facility] Comment on above: Performed By: #### G IPANEL ####[facility] Xvjlexfwnn17[address] [place], [place] [address]Dr. Devin Suresh [facility] SEE BELOW Normal [facility] Comment on above: Result Comment: EAEC - Enteroaggregative E. Coli EPEC- Enteropathogenic E. Coli ETEC- Enterotoxigenic E. Coli lt/st STEC- Shigella-like toxin-producing E. Coli stx1/stx2 EIEC- Shigella/Enteroinvasive E. Coli Performed By: #### G IPANEL ####[facility] Wpwnciwxef[address] [place], [place] [address]Dr. Devin Suresh GIPNLHD PARASITES GI PANEL PARASITES Normal [facility] Comment on above: Performed By: #### G IPANEL ####[facility] Cdinwbgkkw9552[address] [place], [place] [address]Dr. Devin Suresh GIPNLHD VIRUS GI PANEL VIRUSES Normal The [facility] Comment on above: Performed By: #### G IPANEL ####[facility] Oicpvvymqk0617[address] [place], [place] [address]Dr. Devin Suresh Norovirus GI/GII Not detected Normal NOT DETECTED [facility] Comment on above: Performed By: #### G IPANEL ####[facility] Mtcaydqvir5158[address] [place], [place] [address]Dr. Tsihemily Suresh P. Shigelloides Not detected Normal NOT DETECTED [facility] Comment on above: Performed By: #### G IPANEL ####[facility] Lzzbqvxvrk2629[address] [place], [place] [address]Dr. Tishemily Suresh Rotavirus A Not detected Normal NOT DETECTED [facility] Comment on above: Performed By: #### G IPANEL ####[facility] Jdmbnapdnb9468[address] [place], [place] [address]Dr. Devin Suresh Salmonella Not detected Normal NOT DETECTED [facility] Comment on above: Performed By: #### G IPANEL ####[facility] Hbkkuaxnon5685[address] [place], [place] [address]Dr. Tishemily Suresh Sapovirus Not detected Normal NOT DETECTED [facility] Comment on above: Performed By: #### G IPANEL ####[facility] Djxwuyhdel0493[address] [place], [place] [address]Dr. Tishemily Suresh STEC Not detected Normal NOT DETECTED [facility] Comment on above: Performed By: #### G IPANEL ####[facility] Waigiztttx8986[address] [place], [place] [address]Dr. Tishemily Suresh Vibrio Not detected Normal NOT DETECTED [facility] Comment on above: Performed By: #### G IPANEL ####[facility] Pahwtuxdnl6489[address] [place], [place] [address]Dr. Tishemily Suresh Vibrio Cholera Not detected Normal NOT DETECTED [facility] Comment on above: Performed By: #### G IPANEL ####[facility] Nimkskxbro685[address] [place], [place] [address]Dr. Devin Suresh Y. Enterocolitica Not detected Normal NOT DETECTED The [facility] Comment on above: Performed By: #### G IPANEL ####[facility] Kjnihqjgme5[address] [place] [address]Dr. Devin Suresh POINT OF CARE GLUCOSEon 07-23 Glucose [Mass/Vol] 199 mg/dL Critically high 74-106 [facility] Comment on above: Performed By: #### P OCGLUC ####[facility] Maaksmzvew54[address] [place] [address]Dr. Devin Suresh Glucose [Mass/Vol] 193 mg/dL Critically high 74-106 [facility] Comment on above: Performed By: #### P OCGLUC ####[facility] Pclsklgxmm[address] [place], [place] [address]Dr. Devin Suresh Glucose [Mass/Vol] 276 mg/dL Critically high 74-106 [facility] Comment on above: Performed By: #### P OCGLUC ####[facility] Jjvajbwzjf29[address] [place], [place] [address]Dr. Devin Suresh PROF 14(COMP METB)on 023 Albumin [Mass/Vol] 2.8 g/dL Critically low 3.4-5.0 Th [facility] Comment on above: Performed By: #### C MP ####[facility] Vmbejloanm46[address] [place] [address]Dr. Devin Suresh Albumin/Globulin [Mass ratio] 1.1 {ratio} Normal [facility] Comment on above: Performed By: #### C MP ####[facility] Rrquyqkdvy4663 [place] [address]Dr. Devin Suresh ALP [Catalytic activity/Vol] 85 U/L Normal 46-116 [facility] Comment on above: Performed By: #### C MP ####[facility] Zkruiavlqy[address] [place], [place] [address]Dr. Devin Suresh ALT [Catalytic activity/Vol] 13 U/L Critically low 14-59 [facility] Comment on above: Performed By: #### C MP ####[facility] Fzlfkfxjjf[address] [place], [place] [address]Dr. Devin Suresh Anion gap [Moles/Vol] 10.2 mmol/L Normal [facility] Comment on above: Performed By: #### C MP ####[facility] Kfulplidjs9754[address] [place], [place] [address]Dr. Devin Kerwin AST [Catalytic activity/Vol] 12 U/L Critically low 15-37 [facility] Comment on above: Performed By: #### C MP ####[facility] Pausehuxcb7365[address] [place], [place] [address]Dr. Devin Suresh Bilirubin [Mass/Vol] 0.3 mg/dL Normal 0.2-1.0 [facility] Comment on above: Performed By: #### C MP ####[facility] Dpktuooszc3799[address] [place], [place] [address]Dr. Devin Suresh Calcium [Mass/Vol] 7.4 mg/dL Critically low 8.5-10.1 [facility] Comment on above: Performed By: #### C MP ####[facility] Hskaueliub7[address] [place], [place] [address]Dr. Devin Suresh Chloride [Moles/Vol] 107 mmol/L Normal 98-107 [facility] Comment on above: Performed By: #### C MP ####[facility] Urcffrcimc9742[address] [place], [place] [address]Dr. Devin Suresh CO2 [Moles/Vol] 23.4 mmol/L Normal 21.0-32.0 [facility] Comment on above: Performed By: #### C MP ####[facility] Svhlidqvkj6467[address] [place], [place] [address]Dr. Devin Suresh Creatinine [Mass/Vol] 1.23 mg/dL Critically high 0.55-1.02 [facility] Comment on above: Performed By: #### C MP ####[facility] Rynifklsmt3701[address] [place], [place] [address]Dr. eDvin Suresh EGFR-AF CONGOLESE 57 mL/min/1.73m2 Critically low >=60 [facility] Comment on above: Performed By: #### C MP ####[facility] Wynqtvyouq450[address] [place], [place] [address]Dr. Devin Suresh EGFR-NON AF CONGOLESE 47 mL/min/1.73m2 Critically low >=60 [facility] Comment on above: Performed By: #### C MP ####[facility] Cbyndmupli7[address] [place] [address]Dr. Tishemily Kerwin Globulin (S) [Mass/Vol] 2.5 g/dL Normal [facility] Comment on above: Performed By: #### C MP ####[facility] Ufbykojbdf0418[address] [place], [place] [address]Dr. Devin Suresh Glucose [Mass/Vol] 284 mg/dL Critically high 74-106 T [facility] Comment on above: Performed By: #### C MP ####[facility] Yikxpaotsh149[address] [place], [place] [address]Dr. Devin Suresh Potassium [Moles/Vol] 3.6 mmol/L Normal 3.5-5.1 [facility] Comment on above: Performed By: #### C MP ####[facility] Fknlpuduya[address] [place], [place] [address]Dr. Devin Suresh Protein [Mass/Vol] 5.3 g/dL Critically low 6.4-8.2 Th [facility] Comment on above: Performed By: #### C MP ####[facility] Oxmbyholfk4308[address] [place], [place] [address]Dr. Devin Suresh Sodium [Moles/Vol] 137 mmol/L Normal 136-145 [facility] Comment on above: Performed By: #### C MP ####[facility] Vwohxzutov5[address] [place], [place] [address]Dr. Devin Suresh Urea nitrogen [Mass/Vol] 14.0 mg/dL Normal 7.0-18.0 [facility] Comment on above: Performed By: #### C MP ####[facility] Zicwcrfksl[address] [place], [place] [address]Dr. Devin Suresh Urea nitrogen/Creatinine [Mass ratio] 11.4 mg/mg Normal [facility] Comment on above: Performed By: #### C MP ####[facility] Kdmgufqkjp[address] [place], [place] [address]Dr. Devin Suresh BNPon 08-02-2022 Natriuretic peptide B (Bld) [Mass/Vol] 84.0 pg/mL Normal <=450.0 [facility] Comment on above: Performed By: #### C MADM, CMP, BNP, CRP ####[facility] Yymzyqgerx66[address] [place] [address]Dr. Devin Suresh CARDIAC LAURA ADMITon 023 CK [Catalytic activity/Vol] 46 U/L Normal 26-192 [facility] Comment on above: Performed By: #### C MADM, CMP, BNP, CRP ####[facility] Lxfsrkvpqo9050 [place] [address]Dr. Devin Suresh CK.MB [Mass/Vol] ng/mL Normal <=3.60 The [facility] Comment on above: Performed By: #### C MADM, CMP, BNP, CRP ####[facility] Ngbvfheqtl3054 [place] [address]Dr. Devin Suresh HSTROP 6.5 pg/mL Normal 4.0-51.3 [facility] Comment on above: Result Comment: CUT- OFF POINTS HAVE BEEN ESTABLISHED BASED ON THE FOURTH UNIVERSAL DEFINITIONS OF MYOCARDIALINFARCTION. THE UPPER REFERENCE LIMIT (URL) OF TROPONIN, DEFINED THE 99TH PERCENTILE OFcTnI DISTRIBUTION IN A REFERENCE POPULATION, HAS BEEN CONFIRMED THE DECISION THRESHOLDFOR NM DIAGNOSIS. Performed By: #### C MADM, CMP, BNP, CRP ####[facility] Lqseynudnz80[address] [place] [address]Dr. Devin Suresh MELANIE 75 ng/mL Normal 9-82 [facility] Comment on above: Performed By: #### C MADM, CMP, BNP, CRP ####[facility] Levahcbmzu[address] [place] [address]Dr. Devin Suresh CBC AUTO DIFFon 08-02-2022 BASO # 0.0 103/ul Normal 0.0-0.1 [facility] Comment on above: Performed By: #### C BC ####[facility] Alunmfjzdc14[address] [place] [address]Dr. Devin Suresh Basophils/100 WBC (Bld) 0.4 % Normal 0.2-2.0 The [facility] Comment on above: Performed By: #### C BC ####[facility] Sotafniyiu5[address] [place] [address]Dr. Devin Suresh EO # 0.1 103/ul Normal 0.0-0.7 [facility] Comment on above: Performed By: #### C BC ####[facility] Bgmmnytqiv8924[address] [place], [place] [address]Dr. Tishemily Suresh Eosinophils/100 WBC (Bld) 1.4 % Normal 0.9-7.0 [facility] Comment on above: Performed By: #### C BC ####[facility] Ytocibqcvp8[address] [place], [place] [address]Dr. Tishemily Suresh Erythrocyte distribution width (RBC) [Ratio] 13.3 % Normal 11.0-15.0 [facility] Comment on above: Performed By: #### C BC ####[facility] Hxvzsmdfph3416[address] [place], [place] [address]Dr. Tishemily Suresh Hematocrit (Bld) [Volume fraction] 33.4 % Critically low 36.0-48.0 [facility] Comment on above: Performed By: #### C BC ####[facility] Vuscegtqwm1592[address] [place], [place] [address]Dr. Devin Kerwin Hemoglobin (Bld) [Mass/Vol] 11.6 g/dL Critically low 12.0-16.0 [facility] Comment on above: Performed By: #### C BC ####[facility] Orxjjqgyit7699[address] [place], [place] [address]Dr. Devin Suresh IG # 0.01 10e3/ul Normal 0.00-0.03 [facility] Comment on above: Performed By: #### C BC ####[facility] Lvluzkhaso7239[address] [place], [place] [address]Dr. Devin Suresh IG % 0.2 % Normal 0.0-0.5 [facility] Comment on above: Performed By: #### C BC ####[facility] Dthejwkxef8275[address] [place], [place] [address]DrMaris Suresh LYMPH # 1.3 103/ul Normal 1.2-3.8 [facility] Comment on above: Performed By: #### C BC ####[facility] Sqfmuzeufh05[address] [place] [address]Dr. Devin Suresh Lymphocytes/100 WBC (Bld) 24.5 % Normal 20.5-60.0 [facility] Comment on above: Performed By: #### C BC ####[facility] Warogdvkmq7[address] [place] [address]Dr. Devin Suresh MANUAL DIFF REQ NO Normal [facility] Comment on above: Performed By: #### C BC ####[facility] Hqtslvfnpq7929 [place] [phone]. Devin Suresh MCH (RBC) [Entitic mass] 30.5 pg Normal 26.7-34.0 [facility] Comment on above: Performed By: #### C BC ####[facility] Coqgwueosl39[address] [place], [place] [address]Dr. Devin Suresh MCHC (RBC) [Mass/Vol] 34.7 g/dL Normal 29.9-35.2 [facility] Comment on above: Performed By: #### C BC ####[facility] Qzquxbajpp5043[address] [place], [place] [address]Dr. Devin Suresh MCV (RBC) [Entitic vol] 87.9 fL Normal 81.0-99.0 [facility] Comment on above: Performed By: #### C BC ####[facility] M[address]mbhntw[address] [place] [address]Dr. Devin Suresh MONO # 0.4 103/ul Normal 0.3-0.8 [facility] Comment on above: Performed By: #### C BC ####[facility] Z[address]wfpocdrp[address] [place], [place] [address]Dr. Devin Suresh Monocytes/100 WBC (Bld) 8.4 % Normal 1.7-12.0 [facility] Comment on above: Performed By: #### C BC ####[facility] Avepqmagrg[address] [place], [place] [address]DrMaris Suresh NEUT # 3.4 103/ul Normal 1.4-6.5 The [facility] Comment on above: Performed By: #### C BC ####[facility] Prvjjkhpab5[address] [place] [phone]. Devin Suresh Neutrophils/100 WBC (Bld) 65.1 % Normal 43.0-75.0 [facility] Comment on above: Performed By: #### C BC ####[facility] Eqijwzhcla4803 [place] [phone]. Devin Suresh Platelet mean volume (Bld) [Entitic vol] 8.8 fL Critically low 9.5-13.5 [facility] Comment on above: Performed By: #### C BC ####[facility] Mznejawefk7[address] [place] [address]Dr. Devin Suresh PLT 218 103/ul Normal 150-450 [facility] Comment on above: Performed By: #### C BC ####[facility] Fhoofvfnww6820 [place] [address]Dr. Devin Suresh RBC 3.80 106/ul Critically low 4.20-5.40 [facility] Comment on above: Performed By: #### C BC ####[facility] Trzyrrtvzm7723 [place] [phone]. Devin Suresh WBC 5.1 103/ul Normal 4.0-11.0 [facility] Comment on above: Performed By: #### C BC ####[facility] Xhelxcyhnd2382 [place] [phone]. Devin Suresh CRPon 08-02-2022 CRP 2.4 mg/dL Critically high <=1.0 [facility] Comment on above: Performed By: #### C MADM, CMP, BNP, CRP ####[facility] Scjubynhld9[address] [place] [phone]. Devin Suresh CULTURE BLOODon 08-02-2022 Microscopic examination of blood, culture Culture Observations: NO GROWTH AT 5 DAYS. Normal [facility] Comment on above: Performed By: #### B LDCX2 ####[facility] Rewxksmukk60[address] [place] [phone]. Devin Suresh Microscopic examination of blood, culture Culture Observations: NO GROWTH AT 5 DAYS. Normal [facility] Comment on above: Performed By: #### B LDCX1 ####[facility] Vbgjgjfarn[address] [place] [phone]. Devin Suresh CULTURE URINEon 08-02-2022 CULTURE URINE Culture Observations : LIGHT GROWTH OF MIXED GENITAL ERIC. NO POTENTIAL PATHOGENS SEEN. Normal [facility] Comment on above: Performed By: #### U RCX ####[facility] Wtyvhobjno364[address] [place] [phone]. Devin Suresh Covid-19 PCR (CVDTBH)on 07-23 SARS-CoV-2 (COVID-19) RNA EBONIE+probe Ql (Unsp spec) Not detected Normal NOT DETECTED [facility] Comment on above: Result Comment: When [...] for this test is supported by the [employer] of Health and Human Service's declaration that [...] be used). Performed By: #### C VDTBH ####[facility] Xkskjfhauk7[address] [place] [phone]. Devin Suresh ER URINE PROFILEon 3 Bilirubin Ql (U) Negative Normal NEGATIVE The [facility] Comment on above: Performed By: #### E CHUCKY ALLEN ####[facility] Klkafdtbgd85[address] [place] [phone]. Devin Suresh Clarity (U) CLEAR Normal CLEAR [facility] Comment on above: Performed By: #### REAGAN STARRRO ####[facility] Selmjvwpbt5090 [place] [address]Dr. Devin Suresh Color (U) LT. YELLOW Normal YELLOW [facility] Comment on above: Performed By: #### REAGAN STARRRO ####[facility] Hvzmjsnbfc12[address] [place] [address]Dr. Devin Suresh ERUAHD A micrscopic examina tion will be performed if indicated. Normal [facility] Comment on above: Performed By: #### REAGAN STARRRO ####[facility] Sutjjgoqlx[address] [place], [place] [address]Dr. Devin Suresh Glucose Ql (U) >1000 Abnormal NEGATIVE The [facility] Comment on above: Performed By: #### REAGAN STARRRO ####[facility] Rxhtnepaof7[address] [place], [place] [address]Dr. Devin Suresh Hemoglobin Ql (U) TRACE-LYSED Abnormal NEGATIVE The [facility] Comment on above: Performed By: #### REAGAN STARRRO ####[facility] Fnoqcsrvdn64[address] [place], [place] [address]Dr. Devin Suresh Ketones Ql (U) Negative Normal NEGATIVE The [facility] Comment on above: Performed By: #### REAGAN STARRRO ####[facility] Zriyjsvdro[address] [place], [place] [address]Dr. Devin Suresh LEUKOCYTES Negative Normal NEGATIVE [facility] Comment on above: Performed By: #### REAGAN STARRRO ####[facility] Vwqkuclech[address] [place], [place] [address]Dr. Devin Suresh Nitrite Ql (U) Negative Normal NEGATIVE The [facility] Comment on above: Performed By: #### REAGAN STARRRO ####[facility] Xdpjoaupxe3[address] [place], [place] [address]Dr. Devin Suresh pH (U) 6.0 [pH] Normal 5-9 [facility] Comment on above: Performed By: #### REAGAN STARRRO ####[facility] Lzvxeftvdx4347 [place] [address]Dr. Devin Suresh SPEC GRAVITY 1.010 Normal 1.005-<=1.0 25 [facility] Comment on above: Performed By: #### CHUCKY STARR ####[facility] Efxeblfvyy8[address] [place] [address]Dr. Devin Suresh UA PROTEIN Negative Normal NEGATIVE/ TRACE [facility] Comment on above: Performed By: #### CHUCKY STARR ####[facility] Rzeprebigf3525 [place] [address]Dr. Devin Suresh UR MICRO IND INDICATED Normal [facility] Comment on above: Performed By: #### CHUCKY STARR ####[facility] Ahivsswtck8542 [place] [address]Dr. Devin Suresh Urobilinogen Qn (U) 0.2 {Sheyla'U}/dL Normal 0.2 - 1. 0 [facility] Comment on above: Performed By: #### CHUCKY STARR ####[facility] Zxmufmnucb0903 [place] [address]Dr. Devin Suresh LACTATE/LACTIC ACIDon 2022 Lactate [Moles/Vol] 1.2 mmol/L Normal 0.4-2.0 [facility] Comment on above: Performed By: #### L ACT ####[facility] Eghkluozlz9571 [place] [address]Dr. Devin Suresh Lactate [Moles/Vol] 3.1 mmol/L Critically high 0.4-2.0 [facility] Comment on above: Performed By: #### L ACT ####[facility] Nlgyvezkpe[address] [place], [place] [address]Dr. Devin Suresh POINT OF CARE GLUCOSEon 07-23 Glucose [Mass/Vol] 293 mg/dL Critically high 74-106 [facility] Comment on above: Performed By: #### P OCGLUC ####[facility] Ehxczawlmi[address] [place], [place] [address]Dr. Devin Suresh POCGLUC >600 Critically high 74-106 [facility] Comment on above: Result Comment: Lab Draw Ordered Performed By: #### P OCGLUC ####[facility] Sdndbkhwwh4685 [place] [address]Dr. Devin Suresh PROF 14(COMP METB)on 023 Albumin [Mass/Vol] 3.6 g/dL Normal 3.4-5.0 [facility] Comment on above: Performed By: #### C MADM, CMP, BNP, CRP ####[facility] Kgjenxfoic7946 [place] [address]Dr. Devin Suresh Albumin/Globulin [Mass ratio] 1.2 {ratio} Normal [facility] Comment on above: Performed By: #### C MADM, CMP, BNP, CRP ####[facility] Bpybkjunqk4747 [place] [address]Dr. Devin Suresh ALP [Catalytic activity/Vol] 113 U/L Normal 46-116 [facility] Comment on above: Performed By: #### C MADM, CMP, BNP, CRP ####[facility] Tsjkygdobr9966 [place] [address]Dr. Devin Suresh ALT [Catalytic activity/Vol] 12 U/L Critically low 14-59 [facility] Comment on above: Performed By: #### C MADM, CMP, BNP, CRP ####[facility] Tgvepalmhq9614 [place] [address]Dr. Devin Suresh Anion gap [Moles/Vol] 15.4 mmol/L Normal [facility] Comment on above: Performed By: #### C MADM, CMP, BNP, CRP ####[facility] Vednaohzzr4050 [place] [address]Dr. Devin Suresh AST [Catalytic activity/Vol] 13 U/L Critically low 15-37 [facility] Comment on above: Performed By: #### C MADM, CMP, BNP, CRP ####[facility] [address] [address]Dr. Devin Suresh Bilirubin [Mass/Vol] 0.5 mg/dL Normal 0.2-1.0 [facility] Comment on above: Performed By: #### C MADM, CMP, BNP, CRP ####[facility] Qi[address]zmh[address] [address]Dr. Devin Suresh Calcium [Mass/Vol] 8.4 mg/dL Critically low 8.5-10.1 Th e [facility] Comment on above: Performed By: #### C MADM, CMP, BNP, CRP ####[facility] [address] [address]Dr. Devin Suresh Chloride [Moles/Vol] 96 mmol/L Critically low 98-107 [facility] Comment on above: Performed By: #### C MADM, CMP, BNP, CRP ####[facility] Dfewsucgei[address] [address]Dr. Devin Suresh CO2 [Moles/Vol] 21.8 mmol/L Normal 21.0-32.0 [facility] Comment on above: Performed By: #### C MADM, CMP, BNP, CRP ####[facility] Wiktvucrsd[address] [place], [place] [address]Dr. Devin Suresh Creatinine [Mass/Vol] 1.54 mg/dL Critically high 0.55-1.02 [facility] Comment on above: Performed By: #### C MADM, CMP, BNP, CRP ####[facility] Fyuibfbtxe[address] [place], [place] [address]Dr. Devin Suresh EGFR-AF CONGOLESE 44 mL/min/1.73m2 Critically low >=60 [facility] Comment on above: Performed By: #### C MADM, CMP, BNP, CRP ####[facility] Mzexvroozv[address] [place], [place] [address]Dr. Devin Suresh EGFR-NON AF CONGOLESE 36 mL/min/1.73m2 Critically low >=60 The [facility] Comment on above: Performed By: #### C MADM, CMP, BNP, CRP ####[facility] [address] [address]Dr. Devin Suresh Globulin (S) [Mass/Vol] 3.1 g/dL Normal [facility] Comment on above: Performed By: #### C MADM, CMP, BNP, CRP ####[facility] Jscnpldnal[address] [address]Dr. Devin Suresh Glucose [Mass/Vol] 562 mg/dL Critically high 74-106 T [facility] Comment on above: Performed By: #### C MADM, CMP, BNP, CRP ####[facility] Upltjyctok[address] [address]Dr. Devin Suresh Potassium [Moles/Vol] 4.2 mmol/L Normal 3.5-5.1 [facility] Comment on above: Performed By: #### C MADM, CMP, BNP, CRP ####[facility] [address] [address]Dr. Devin Suresh Protein [Mass/Vol] 6.7 g/dL Normal 6.4-8.2 [facility] Comment on above: Performed By: #### C MADM, CMP, BNP, CRP ####[facility] Zeaxgwvitd[address] [address]Dr. Devin Suresh Sodium [Moles/Vol] 129 mmol/L Critically low 136-145 Th [facility] Comment on above: Performed By: #### C MADM, CMP, BNP, CRP ####[facility] Upptgwiidq[address] [place], [place] [address]Dr. Devin Suresh Urea nitrogen [Mass/Vol] 18.0 mg/dL Normal 7.0-18.0 [facility] Comment on above: Performed By: #### C MADM, CMP, BNP, CRP ####[facility] Tfxlkzbibw[address] [place], [place] [address]Dr. Devin Suresh Urea nitrogen/Creatinine [Mass ratio] 11.7 mg/mg Normal [facility] Comment on above: Performed By: #### C MADM, CMP, BNP, CRP ####[facility] Haifxbwhto[address] [place], [place] [address]Dr. Devin Suresh PROTIMEon 08-02-2022 INR Coag (PPP) [Relative time] 0.96 {INR} Normal [facility] Comment on above: Performed By: #### P T, PTT ####[facility] Jkitneroxo[address] [place], [place] [address]Dr. Devin Suresh INR GUIDELINES SEE BELOW Normal The [facility] Comment on above: Result Comment: EVA RED INR: 2.0 - 3.0 CONDITIONS NOT LISTED BELOW 2.5 - 3.5 FOR PROSTHETIC HEART VALVE REPLACEMENT 2.5 - 3.5 RECURRENT THROMBOSIS Performed By: #### P T, PTT ####[facility] Khogrweaac[address] [place], [place] [address]Dr. Devin Suresh PT Coag (PPP) [Time] 10.2 s Normal 9.0-11.6 [facility] Comment on above: Performed By: #### P T, PTT ####[facility] Jimtnifqyw[address] [place], [place] [address]Dr. Devin Suresh PTTon 08-02-2022 aPTT Coag (Bld) [Time] 26.4 s Normal 22.3-36.2 [facility] Comment on above: Performed By: #### P T, PTT ####[facility] Ccxhubllzj[address] [place], [place] [address]Dr. Devin Suresh [facility] 22 mm/hr Critically high <=20 [facility] Comment on above: Performed By: #### S EDR ####[facility] Fbtfptrtzs[address] [place], [place] [address]Dr. Devin Suresh URINE MICROSCOPIC ONLYon BACTERIA TRACE Abnormal NONE SEEN The [facility] Comment on above: Performed By: #### REAGAN STARRRO ####[facility] Biduyynahz[address] [place], [place] [address]Dr. Devin Suresh Bacteria identified Cx Nom (U) INDICATED Normal The [facility] Comment on above: Performed By: #### REAGAN STARRRO ####[facility] Zdgxzeazva6[address] [place], [place] [address]Dr. Devin Suresh CAST NONE SEEN Normal NONE SEEN The [facility] Comment on above: Performed By: #### GEORGE STARRICRO ####[facility] Egiopmqzwv[address] [place], [place] [address]Dr. Devin Suresh Crystals LM Nom (Urine sed) NONE SEEN Normal NONE SEEN The [facility] Comment on above: Performed By: #### E ALEJANDRO UMICRO ####[facility] [address] [address]Dr. Devin Suresh Epithelial cells LM Ql (Urine sed) RARE Normal NONE SEEN /RARE The [facility] Comment on above: Performed By: #### E RUNeno UMICRO ####[facility] [address]ltg[address] [address]Dr. Devin Suresh MUCOUS NONE SEEN Normal NONE SEEN The [facility] Comment on above: Performed By: #### E RUNeno UMICRO ####[facility] Gldzpfnkca[address] [place], [place] [address]Dr. Devin Suresh RBC 0-2 Normal 0-2 [facility] Comment on above: Performed By: #### Bud RUNeno UMICRO ####[facility] Snotwmtqyn[address] [place], [place] [address]Dr. Devin Suresh WBC NONE SEEN Normal NONE SEEN The [facility] Comment on above: Performed By: #### Bud ALLEN UMICRO ####[facility] Rbgqjndibv8[address] [place], [place] [address]Dr. Devin Suresh YEAST PRESENT Abnormal NONE SEEN The [facility] Comment on above: Performed By: #### E RUNeno UMICRO ####[facility] Mnpqbiudfa[address] [place], [place] [address]Dr. Devin Suresh XR CHEST 1 Von 08-02-2022 XR CHEST 1 V Normal [facility] XR FOOT LT MIN 3 VIEWSon XR FOOT LT MIN 3 VIEWS Normal The [facility] BLOOD CULTURE ID PANELon A. baumannii Not detected Normal NOT DETECTED The [facility] Comment on above: Performed By: #### B CID2 ####[facility] Qxpbghgmeg[address] [place], [place] [address]Dr. Devin Suresh Bacteriodes fragilis Not detected Normal NOT DETECTED The [facility] Comment on above: Performed By: #### B CID2 ####[facility] Ydwvgktoxw[address] [place], [place] [address]Dr. Yilan Suresh BCID CONTROLS PASSED Normal The [facility] Comment on above: Performed By: #### B CID2 ####[facility] [address] [id number]. Yiemily Suresh BCIDBTHD BLOOD CULTURE BOTTLE INFORMATION Normal The [facility] Comment on above: Performed By: #### B CID2 ####[facility] R[address]xvvns[address] [id number]. Yiemily Suresh BCIDHD1 ANTIMICROBIAL RESIST ANCE GENES [place] Comment on above: Performed By: #### B CID2 ####[facility] Vegetafgoh[address] [address]Dr. Yilan Suresh BCIDHD2 SEE BELOW [place] Comment on above: Result Comment: Note : Antimicrobial resitance can occur via multiple mechanisms. A Not Detected result for the [employer] antomicrobial resistance gene assays does not indicate antimicrobial susceptibility. Subculturing is required for species identification and susceptibility testing of isolates. Performed By: #### B CID2 ####[facility] [address] [address]Dr. Yiemily Suresh BCIDHD3 Positive [place] Comment on above: Performed By: #### B CID2 ####[facility] L[address]zfnuqee[address] [place], [place] [address]Dr. Yiemily Suresh BCIDHD4 Negative [place] Comment on above: Performed By: #### B CID2 ####[facility] [address] [address]Dr. Yiemily Suresh BCIDHD5 YEAST Normal The [facility] Comment on above: Performed By: #### B CID2 ####[facility] Ryxiwrkdpg[address] [address]Dr. Yilan Suresh Bottle Set: Set 2 Normal [facility] Comment on above: Performed By: #### B CID2 ####[facility] T[address]uf[address]ub[address] [address]Dr. Yilan Suresh Bottle: Anaerobic Normal [facility] Comment on above: Performed By: #### B CID2 ####[facility] [address] [place], [place] [address]Dr. Yilan Suresh C. neoformans/gattii Not detected Normal NOT DETECTED The [facility] Comment on above: Performed By: #### B CID2 ####[facility] Fuvxuwptyp[address] [place], [place] [address]Dr. Yilan Suresh Jackelyn albicans Not detected Normal NOT DETECTED The [facility] Comment on above: Performed By: #### B CID2 ####[facility] Faxbhszllz[address] [place], [place] [address]Dr. Yilan Suresh Jackelyn auris Not detected Normal NOT DETECTED The [facility] Comment on above: Performed By: #### B CID2 ####[facility] Pxwnyqediq[address] [place], [place] [address]Dr. Yilan Suresh Jackelyn glabrata Not detected Normal NOT DETECTED The [facility] Comment on above: Performed By: #### B CID2 ####[facility] Uglzkildhr[address] [place], [place] [address]Dr. Yilan [facility] Jackelyn Krusei Not detected Normal NOT DETECTED The [facility] Comment on above: Performed By: #### B CID2 ####[facility] Ohiitinufq[address] [place], [place] [address]Dr. Yilan Suresh Jackelyn Parapsilosis Not detected Normal NOT DETECTED The [facility] Comment on above: Performed By: #### B CID2 ####[facility] Rnykispgkp[address] [place], [place] [address]Dr. Yilan [facility] Jackelyn Tropicalis Not detected Normal NOT DETECTED The [facility] Comment on above: Performed By: #### B CID2 ####[facility] Mxsbxklxqo16[address] [place], [place] [address]Dr. Devin Suresh CTX-M Resistant Gene Not Applicable Normal NOT DETECTED The [facility] Comment on above: Performed By: #### B CID2 ####[facility] Hicvdnvcxy[address] [place], [place] [address]Dr. Yilan Suresh E. Cloacae complex Not detected Normal NOT DETECTED The [facility] Comment on above: Performed By: #### B CID2 ####[facility] Vxbqhuyjuu74[address] [place], [place] [address]Dr. Yilan Suresh E. faecalis Not detected Normal NOT DETECTED The [facility] Comment on above: Performed By: #### B CID2 ####[facility] Bmpfpcfgbp[address] [place], [place] [address]Dr. Devin Suresh E. faecium Not detected Normal NOT DETECTED The [facility] Comment on above: Performed By: #### B CID2 ####[facility] Ysujnpjkzk[address] [place], [place] [address]Dr. Yilan Suresh Enterobacteriaceae Not detected Normal NOT DETECTED The [facility] Comment on above: Performed By: #### B CID2 ####[facility] Nnolklguqn5[address] [place], [place] [address]Dr. Devin Suresh Escherichia coli Not detected Normal NOT DETECTED The [facility] Comment on above: Performed By: #### B CID2 ####[facility] Uplcdavaqg6933[address] [place], [place] [address]Dr. Devin Suresh H. influenzae Not detected Normal NOT DETECTED The [facility] Comment on above: Performed By: #### B CID2 ####[facility] Mouuoflcsf02[address] [place], [place] [address]Dr. Devin Suresh IMP Resistant Gene Not Applicable Normal NOT DETECTED The [facility] Comment on above: Performed By: #### B CID2 ####[facility] Rfjypsywju7534[address] [place], [place] [address]Dr. Devin Suresh K. oxytoca Not detected Normal NOT DETECTED The [facility] Comment on above: Performed By: #### B CID2 ####[facility] Nxzqkxxtes1752[address] [place], [place] [address]Dr. Yiemily Suresh K. pneumoniae Not detected Normal NOT DETECTED The [facility] Comment on above: Performed By: #### B CID2 ####[facility] Rqxviwqlcn[address] [place], [place] [address]Dr. Yilan Suresh Klebsiella aerogenes Not detected Normal NOT DETECTED The [facility] Comment on above: Performed By: #### B CID2 ####[facility] Mnldbltfgj[address] [place], [place] [address]Dr. Devin Suresh KPC Resistant Gene Not Applicable Normal NOT DETECTED The [facility] Comment on above: Performed By: #### B CID2 ####[facility] Bfqjnhqnwe[address] [place], [place] [address]Dr. Devin Suresh List. monocytogenes Not detected Normal NOT DETECTED The [facility] Comment on above: Performed By: #### B CID2 ####[facility] Amzdniodqg4[address] [place], [place] [address]Dr. Devin Suresh Mcr-1 Resistant Gene Not Applicable Normal NOT DETECTED The [facility] Comment on above: Performed By: #### B CID2 ####[facility] Qycqogdhne9[address] [place], [place] [address]Dr. Devin Suresh mecA/C Not Applicable Normal NOT DETECTED The [facility] Comment on above: Performed By: #### B CID2 ####[facility] Daliktsujt0[address] [place], [place] [address]Dr. Devin Suresh mecA/C MREJ Not Applicable Normal NOT DETECTED The [facility] Comment on above: Performed By: #### B CID2 ####[facility] Eesixvtldy[address] [place], [place] [address]Dr. Devin Suresh N. meningitidis Not detected Normal NOT DETECTED The [facility] Comment on above: Performed By: #### B CID2 ####[facility] Mbakpnduuf01[address] [place], [place] [address]Dr. Devin Suresh NDM Resistant Gene Not Applicable Normal NOT DETECTED The [facility] Comment on above: Performed By: #### B CID2 ####[facility] Eeowbtmsif7[address] [place], [place] [address]Dr. Devin Suresh Oxa-48-like Not Applicable Normal NOT DETECTED The [facility] Comment on above: Performed By: #### B CID2 ####[facility] Uyhwbishiy[address] [place], [place] [address]Dr. Devin Suresh Proteus Not detected Normal NOT DETECTED The [facility] Comment on above: Performed By: #### B CID2 ####[facility] Udszunhudd97[address] [place], [place] [address]Dr. Devin Suresh Pseud. aeruginosa Not detected Normal NOT DETECTED The [facility] Comment on above: Performed By: #### B CID2 ####[facility] Uzuykbtynw[address] [place], [place] [address]Dr. Devin Suresh S. maltophilia Not detected Normal NOT DETECTED The [facility] Comment on above: Performed By: #### B CID2 ####[facility] Kouwzbbkre93[address] [place], [place] [address]Dr. Devin Suresh Salmonella Not detected Normal NOT DETECTED The [facility] Comment on above: Performed By: #### B CID2 ####[facility] Xeytwraixd79[address] [place], [place] [address]Dr. Devin Suresh Seratia marcescens Not detected Normal NOT DETECTED The [facility] Comment on above: Performed By: #### B CID2 ####[facility] Slxznjjepn95[address] [place], [place] [address]Dr. Devin Suresh Site: RAC Normal [facility] Comment on above: Performed By: #### B CID2 ####[facility] Kklzomzdhw79[address] [place], [place] [address]Dr. Devin Suresh Staph. aureus Not detected Normal NOT DETECTED The [facility] Comment on above: Performed By: #### B CID2 ####[facility] Rhxgufvjmm01[address] [place], [place] [address]Dr. Devin Suresh Staph. epidermidis Not detected Normal NOT DETECTED The [facility] Comment on above: Performed By: #### B CID2 ####[facility] Hyenjancvj08[address] [place], [place] [address]Dr. Devin Suresh Staph. lugdunensis Not detected Normal NOT DETECTED The [facility] Comment on above: Performed By: #### B CID2 ####[facility] Wvfysihzbt[address] [place], [place] [address]Dr. Devin Suresh Staphylococcus Not detected Normal NOT DETECTED The [facility] Comment on above: Performed By: #### B CID2 ####[facility] Lmwejxpyze5[address] [place], [place] [address]Dr. Devin Suresh Strep. agalactiae Not detected Normal NOT DETECTED The [facility] Comment on above: Performed By: #### B CID2 ####[facility] Bpbgfvtgri2138[address] [place], [place] [address]Dr. Devin Suresh Strep. pneumoniae Not detected Normal NOT DETECTED The [facility] Comment on above: Performed By: #### B CID2 ####[facility] Rphirbrenf67[address] [place], [place] [address]Dr. Devin Suresh Strep. pyogenes Not detected Normal NOT DETECTED The [facility] Comment on above: Performed By: #### B CID2 ####[facility] Qscwnborze04[address] [place], [place] [address]Dr. Devin Suresh Streptococcus Not detected Normal NOT DETECTED The [facility] Comment on above: Performed By: #### B CID2 ####[facility] Mpvclfwjvt[address] [place], [place] [address]Dr. Devin Suresh Rich/B Resist. Gene Not Applicable Normal NOT DETECTED The [facility] Comment on above: Performed By: #### B CID2 ####[facility] Hmpbctolou[address] [place], [place] [address]Dr. Devin Suresh VIM Resistant Gene Not Applicable Normal NOT DETECTED The [facility] Comment on above: Performed By: #### B CID2 ####[facility] Cgpodhiqym15[address] [place], [place] [address]Dr. Devin Suresh CBC AUTO DIFFon 07-30-2022 BASO # 0.0 103/ul Normal 0.0-0.1 [facility] Comment on above: Performed By: #### C BC ####[facility] Lywgkuisyn[address] [place], [place] [address]Dr. Devin Kerwin Basophils/100 WBC (Bld) 0.5 % Normal 0.2-2.0 [facility] Comment on above: Performed By: #### C BC ####[facility] Vsuxoruyrh[address] [place], [place] [address]Dr. Devin Suresh EO # 0.1 103/ul Normal 0.0-0.7 [facility] Comment on above: Performed By: #### C BC ####[facility] Rybgnwpcie[address] [place], [place] [address]Dr. Devin Suresh Eosinophils/100 WBC (Bld) 2.3 % Normal 0.9-7.0 [facility] Comment on above: Performed By: #### C BC ####[facility] Xjulmjwmbe[address] [place] [id number]. Devin Suresh Erythrocyte distribution width (RBC) [Ratio] 13.4 % Normal 11.0-15.0 [facility] Comment on above: Performed By: #### C BC ####[facility] Clehaqgfcy[address] [place] [id number]. Devin Suresh Hematocrit (Bld) [Volume fraction] 36.9 % Normal 36.0-48.0 [facility] Comment on above: Performed By: #### C BC ####[facility] [address]wtbvpjyrt[address] [place] [address]Dr. Devin Suresh Hemoglobin (Bld) [Mass/Vol] 12.9 g/dL Normal 12.0-16.0 [facility] Comment on above: Performed By: #### C BC ####[facility] B[address]askcfdnt[address] [place] [address]Dr. Devin Suresh IG # 0.02 10e3/ul Normal 0.00-0.03 [facility] Comment on above: Performed By: #### C BC ####[facility] Mvfkvftwho[address] [place] [address]Dr. Devin Suresh IG % 0.4 % Normal 0.0-0.5 [facility] Comment on above: Performed By: #### C BC ####[facility] [address]ksdjf[address] [place] [address]Dr. Devin Suresh LYMPH # 0.9 103/ul Critically low 1.2-3.8 The [facility] Comment on above: Performed By: #### C BC ####[facility] Xluqfdeocc[address] [place] [address]Dr. Devin Suresh Lymphocytes/100 WBC (Bld) 16.4 % Critically low 20.5-60.0 [facility] Comment on above: Performed By: #### C BC ####[facility] Avlgdvrnis[address] [place] [address]Dr. Devin Suresh MANUAL DIFF REQ NO Normal [facility] Comment on above: Performed By: #### C BC ####[facility] Zpbtklmyia[address] [place] [id number]. Devin Suresh MCH (RBC) [Entitic mass] 30.9 pg Normal 26.7-34.0 [facility] Comment on above: Performed By: #### C BC ####[facility] Zkxhfwbmrf[address] [place] [id number]. Devin Suresh MCHC (RBC) [Mass/Vol] 35.0 g/dL Normal 29.9-35.2 [facility] Comment on above: Performed By: #### C BC ####[facility] Gyaelczgex[address] [place] [id number]. Devin Suresh MCV (RBC) [Entitic vol] 88.3 fL Normal 81.0-99.0 [facility] Comment on above: Performed By: #### C BC ####[facility] Eubpicgnvx[address] [place], [place] [address]Dr. Devin Suresh MONO # 0.4 103/ul Normal 0.3-0.8 [facility] Comment on above: Performed By: #### C BC ####[facility] Cqqpiwtzgv[address] [place] [address]Dr. Devin Suresh Monocytes/100 WBC (Bld) 6.9 % Normal 1.7-12.0 [facility] Comment on above: Performed By: #### C BC ####[facility] Jhhdriwjyy[address] [place], [place] [address]Dr. Tishemily Suresh NEUT # 4.2 103/ul Normal 1.4-6.5 [facility] Comment on above: Performed By: #### C BC ####[facility] [address]mskfs[address] [place], [place] [address]Dr. Devin Suresh Neutrophils/100 WBC (Bld) 73.5 % Normal 43.0-75.0 [facility] Comment on above: Performed By: #### C BC ####[facility] Plofjvyata[address] [place], [place] [address]Dr. Devin Suresh Platelet mean volume (Bld) [Entitic vol] 8.6 fL Critically low 9.5-13.5 [facility] Comment on above: Performed By: #### C BC ####[facility] Nmwbqlamzi0233 [place], [place] [address]Hi. Devin Suresh PLT 290 103/ul Normal 150-450 [facility] Comment on above: Performed By: #### C BC ####[facility] Zexzzeydor8114 [place], [place] [address]Ym. Devin Suresh RBC 4.18 106/ul Critically low 4.20-5.40 [facility] Comment on above: Performed By: #### C BC ####[facility] Wnalcvbnot3394 [place], [place] [address]Yq. Devin Suresh WBC 5.7 103/ul Normal 4.0-11.0 [facility] Comment on above: Performed By: #### C BC ####[facility] Pvxkglpemm0868 [place], [place] [address]Nd. Devin Suresh CULTURE BLOODon 07-30-2022 Microscopic examination of blood, culture Culture Observations: NO GROWTH AT 5 DAYS. Normal [facility] Comment on above: Performed By: #### B LDCX1 ####[facility] Wwkfzywizn5432 [place], [place] [address]Ft. Devin Suresh Covid-19 PCR ([facility])on SARS-CoV-2 (COVID-19) RNA EBONIE+probe Ql (Unsp spec) Not detected Normal NOT DETECTED [facility] Comment on above: Result Comment: When [...] for this test is supported by the [place] of Health and Human Service's declaration that [...] be used). Performed By: #### C VDTB ####[facility] Ijltoiivhf[address] [place], [place] [address]Dr. Devin Suresh LACTATE/LACTIC ACIDon 2022 Lactate [Moles/Vol] 1.2 mmol/L Normal 0.4-1.9 [facility] Comment on above: Performed By: #### L ACT ####[facility] Ykppdiwajx[address] [place], [place] [address]Dr. Devin Suresh PROF 14(COMP METB)on 023 Albumin [Mass/Vol] 4.1 g/dL Normal 3.4-5.0 [facility] Comment on above: Performed By: #### C MP ####[facility] Ocmnebqgch3[address] [place], [place] [address]Dr. Devin Suresh Albumin/Globulin [Mass ratio] 1.2 {ratio} Normal [facility] Comment on above: Performed By: #### C MP ####[facility] Rhevhzzxak58[address] [place], [place] [address]Dr. Devin Suresh ALP [Catalytic activity/Vol] 114 U/L Normal 46-116 [facility] Comment on above: Performed By: #### C MP ####[facility] Uvlwbfgzgy020[address] [place], [place] [address]Dr. Devin Suresh ALT [Catalytic activity/Vol] 20 U/L Normal 14-59 [facility] Comment on above: Performed By: #### C MP ####[facility] Ahczmuieys3909[address] [place], [place] [address]Dr. Devin Suresh Anion gap [Moles/Vol] 13.5 mmol/L Normal [facility] Comment on above: Performed By: #### C MP ####[facility] Lhebbwrhne2735[address] [place], [place] [address]Dr. Devin Suresh AST [Catalytic activity/Vol] 12 U/L Critically low 15-37 [facility] Comment on above: Performed By: #### C MP ####[facility] [address]axqsyztui[address] [place] [address]Dr. Devin Suresh Bilirubin [Mass/Vol] 0.4 mg/dL Normal 0.2-1.0 [facility] Comment on above: Performed By: #### C MP ####[facility] Msqbkleuhh4562 [place] [address]Dr. Devin Suresh Calcium [Mass/Vol] 9.3 mg/dL Normal 8.5-10.1 [facility] Comment on above: Performed By: #### C MP ####[facility] Bumkqsbgez6598 [place] [address]Dr. Devin Suresh Chloride [Moles/Vol] 105 mmol/L Normal 98-107 [facility] Comment on above: Performed By: #### C MP ####[facility] Grfoxyjfkb1416 [place] [address]Dr. Devin Suresh CO2 [Moles/Vol] 27.3 mmol/L Normal 21.0-32.0 [facility] Comment on above: Performed By: #### C MP ####[facility] Fhimzgrrna16[address] [place], [place] [address]Dr. Devin Kerwin Creatinine [Mass/Vol] 0.90 mg/dL Normal 0.55-1.02 [facility] Comment on above: Performed By: #### C MP ####[facility] Vilrnebare[address]32 [place] [address]Dr. Devin Kerwin EGFR-AF CONGOLESE >60 Normal >=60 [facility] Comment on above: Performed By: #### C MP ####[facility] Ijesycsemz0665 [place] [address]Dr. Devin Suresh EGFR-NON AF CONGOLESE >60 Normal >=60 [facility] Comment on above: Performed By: #### C MP ####[facility] Jrlmuufwui4834[address] [place], [place] [address]Dr. Devin Suresh Globulin (S) [Mass/Vol] 3.5 g/dL Normal [facility] Comment on above: Performed By: #### C MP ####[facility] Iwbsunwdzp2201[address] [place], [place] [address]Dr. Devin Suresh Glucose [Mass/Vol] 114 mg/dL Critically high 74-106 [facility] Comment on above: Performed By: #### C MP ####[facility] Xcuajietjx0937 [place] [address]Dr. Devin Suresh Potassium [Moles/Vol] 3.8 mmol/L Normal 3.5-5.1 [facility] Comment on above: Performed By: #### C MP ####[facility] Xetregtauy9974 [place] [address]Dr. Devin Suresh Protein [Mass/Vol] 7.6 g/dL Normal 6.4-8.2 [facility] Comment on above: Performed By: #### C MP ####[facility] Iezoeeafbo[address]02[address] [place], [place] [address]Dr. Devin Suresh Sodium [Moles/Vol] 142 mmol/L Normal 136-145 [facility] Comment on above: Performed By: #### C MP ####[facility] Rkszqyrhkv7203[address] [place], [place] [address]Dr. Devin Suresh Urea nitrogen [Mass/Vol] 12.0 mg/dL Normal 7.0-18.0 [facility] Comment on above: Performed By: #### C MP ####[facility] Jwthvwufhd38[address] [place], [place] [address]Dr. Devin Suresh Urea nitrogen/Creatinine [Mass ratio] 13.3 mg/mg Normal [facility] Comment on above: Performed By: #### C MP ####[facility] Htsqsauunq05[address] [place], [place] [address]Dr. Devin Suresh XR CHEST 1 Von 07-30-2022 XR CHEST 1 V Normal [facility] XR FOOT LT MIN 3 VIEWSon XR FOOT LT MIN 3 VIEWS Normal [facility] ACETAMINOPHENon 07-10-2022 Acetaminophen [Mass/Vol] ug/mL Critically low 10.0-30.0 [facility] Comment on above: Performed By: #### A CETRHEA ####[facility] Gxnqsrfbxz7409[address] [place], [place] [address]Dr. Devin Kerwin CBC AUTO DIFFon 07-10-2022 BASO # 0.1 103/ul Normal 0.0-0.1 [facility] Comment on above: Performed By: #### C BC ####[facility] Eissrxasis3310 [place] [address]Dr. Devin Suresh Basophils/100 WBC (Bld) 0.8 % Normal 0.2-2.0 [facility] Comment on above: Performed By: #### C BC ####[facility] Wugcooforc[address] [place], [place] [address]Dr. Tishemily Kerwin EO # 0.2 103/ul Normal 0.0-0.7 [facility] Comment on above: Performed By: #### C BC ####[facility] Cozgdkbcvc037[address] [place], [place] [address]Dr. Devin Kerwin Eosinophils/100 WBC (Bld) 1.6 % Normal 0.9-7.0 [facility] Comment on above: Performed By: #### C BC ####[facility] Jfjpdjocph7555[address] [place], [place] [address]Dr. Devin Suresh Erythrocyte distribution width (RBC) [Ratio] 12.9 % Normal 11.0-15.0 [facility] Comment on above: Performed By: #### C BC ####[facility] Jqmckeszvj119[address] [place], [place] [address]Dr. Devin Suresh Hematocrit (Bld) [Volume fraction] 35.5 % Critically low 36.0-48.0 [facility] Comment on above: Performed By: #### C BC ####[facility] Wkxgmczpey9432[address] [place], [place] [address]Dr. Tishemily Suresh Hemoglobin (Bld) [Mass/Vol] 12.4 g/dL Normal 12.0-16.0 [facility] Comment on above: Performed By: #### C BC ####[facility] Blffcahusc2475[address] [place], [place] [address]Dr. Devin Suresh IG # 0.03 10e3/ul Normal 0.00-0.03 [facility] Comment on above: Performed By: #### C BC ####[facility] Gzlizpxuhi2876 [place] [address]Dr. Tishemily Suresh IG % 0.3 % Normal 0.0-0.5 [facility] Comment on above: Performed By: #### C BC ####[facility] Zvwzjzsfho8259[address] [place], [place] [address]Dr. Devin Suresh LYMPH # 1.8 103/ul Normal 1.2-3.8 [facility] Comment on above: Performed By: #### C BC ####[facility] Trgaxntoit3693[address] [place], [place] [address]Dr. Devin Suresh Lymphocytes/100 WBC (Bld) 19.5 % Critically low 20.5-60.0 [facility] Comment on above: Performed By: #### C BC ####[facility] Vgnhjywdfs3399[address] [place], [place] [address]Dr. Devin Suresh MANUAL DIFF REQ NO Normal [facility] Comment on above: Performed By: #### C BC ####[facility] Chlvzukjni8056[address] [place], [place] [address]Dr. Devin Kerwin MCH (RBC) [Entitic mass] 31.2 pg Normal 26.7-34.0 [facility] Comment on above: Performed By: #### C BC ####[facility] Ceosvtrcij8159[address] [place], [place] [address]Dr. Devin Kerwin MCHC (RBC) [Mass/Vol] 34.9 g/dL Normal 29.9-35.2 [facility] Comment on above: Performed By: #### C BC ####[facility] Huriusztjq3236[address] [place], [place] [address]DrMaris Suresh MCV (RBC) [Entitic vol] 89.2 fL Normal 81.0-99.0 [facility] Comment on above: Performed By: #### C BC ####[facility] Twaamjhedz05[address] [place], [place] [address]DrMaris Suresh MONO # 0.5 103/ul Normal 0.3-0.8 [facility] Comment on above: Performed By: #### C BC ####[facility] Syhlngywri[address] [place], [place] [address]Dr. Devin Suresh Monocytes/100 WBC (Bld) 5.0 % Normal 1.7-12.0 [facility] Comment on above: Performed By: #### C BC ####[facility] Hphmiishur1051 [place] [address]Dr. Devin Suresh NEUT # 6.8 103/ul Critically high 1.4-6.5 [facility] Comment on above: Performed By: #### C BC ####[facility] Kwbgnqoszn1316 [place] [address]Dr. Devin Suresh Neutrophils/100 WBC (Bld) 72.8 % Normal 43.0-75.0 [facility] Comment on above: Performed By: #### C BC ####[facility] Dobklcgwlc23[address] [place], [place] [address]Dr. Devin Suresh Platelet mean volume (Bld) [Entitic vol] 8.6 fL Critically low 9.5-13.5 [facility] Comment on above: Performed By: #### C BC ####[facility] Yzexsnbckq[address] [place], [place] [address]Dr. Devin Suresh PLT 303 103/ul Normal 150-450 [facility] Comment on above: Performed By: #### C BC ####[facility] Kwhhbioryv7[address] [place], [place] [address]Dr. Devin Suresh RBC 3.98 106/ul Critically low 4.20-5.40 [facility] Comment on above: Performed By: #### C BC ####[facility] Zewmlawrja[address] [place], [place] [address]Dr. Devin Suresh WBC 9.3 103/ul Normal 4.0-11.0 [facility] Comment on above: Performed By: #### C BC ####[facility] Szudaothfn[address] [place], [place] [address]Dr. Devin Kerwin DRUG SCREEN RAPID (URINE)on 07-10-2022 AMP Negative Normal NEGATIVE [facility] Comment on above: Performed By: #### D RUGRPD ####[facility] Wjeepoqoxt[address] [place], [place] [address]Dr. Devin Suresh BAR Negative Normal NEGATIVE [facility] Comment on above: Performed By: #### D RUGRPD ####[facility] Bbuywzzmim70[address] [place] [id number]. Tishemily Suresh BUP Negative Normal NEGATIVE [facility] Comment on above: Performed By: #### D RUGRPD ####[facility] Lfsgxgyhwe4421 [place] [id number]. Devin Suresh BZO Negative Normal NEGATIVE [facility] Comment on above: Performed By: #### D RUGRPD ####[facility] Ygbmiaclih0256 [place] [id number]. Devin Suresh KATHY Negative Normal NEGATIVE [facility] Comment on above: Performed By: #### D RUGRPD ####[facility] Zrjlquqgjg9[address] [place], [place] [address]Dr. Devin Suresh CUT-OFFS SEE BELOW Normal [facility] Comment on above: Result Comment: AMP (Amphetamine): 500ng/mL, BAR (Barbituates): 200 ng/mL, BZO (Benzodiazepines): 150 ng/mL, BUP (Buprenorphine): 10 ng/mL, KATHY (Cocaine): 150 ng/mL, mAMP (Methamphetamine): 500 ng/mL, MTD (Methadone): 200 ng/mL, OPI (Opiates): 100 ng/mL, OXY (Oxycodone): 100 ng/mL, PCP (Phencyclidine): 25 ng/mL, PPX (Propoxyphene): 300 ng/mL, THC (Cannabinoids): 50 ng/mL, TCA (Trycyclic Antidepressants): 300 ng/mL Performed By: #### D RUGRPD ####[facility] Mhgsgepjvf6107 [place] [id number]. Devin Suresh DRUG CUT HEADER DRUG CLASS TEST SYST EM CUT-OFF CONCENTRATIONS ARE FOLLOWS: Normal [facility] Comment on above: Performed By: #### D RUGRPD ####[facility] Ujqxvagsxe5816 [place] [id number]. Devin Suresh mAMP Negative Normal NEGATIVE [facility] Comment on above: Performed By: #### D RUGRPD ####[facility] Pmdpulxzcj1474 [place] [id number]. Devin Suresh MTD Negative Normal NEGATIVE [facility] Comment on above: Performed By: #### D RUGRPD ####[facility] Nfoemrkxoe2880 [place] [address]Dr. Yiemily Suresh OPI Negative Normal NEGATIVE [facility] Comment on above: Performed By: #### D RUGRPD ####[facility] Vhktydpfxm8272 [place] [address]Dr. Yiemily Suresh OXY Negative Normal NEGATIVE [facility] Comment on above: Performed By: #### D RUGRPD ####[facility] Hedozrmpid[address] [place], [place] [address]Dr. Devin Kerwin PCP Negative Normal NEGATIVE [facility] Comment on above: Performed By: #### D RUGRPD ####[facility] Xcudiyznyt[address] [place], [place] [address]Dr. Tishemily Suresh PPX Negative Normal NEGATIVE [facility] Comment on above: Performed By: #### D RUGRPD ####[facility] Xkmfsbyeqx4469[address] [place], [place] [address]Dr. Devin Kerwin TCA Positive Abnormal NEGATIVE [facility] Comment on above: Performed By: #### D RUGRPD ####[facility] Dkuobgdaen7238[address] [place], [place] [address]Dr. Devin Kerwin THC Negative Normal NEGATIVE [facility] Comment on above: Performed By: #### D RUGRPD ####[facility] Aptumaeukb[address] [place], [place] [address]Dr. Devin Kerwin ER URINE PROFILEon 3 Bilirubin Ql (U) Negative Normal NEGATIVE [facility] Comment on above: Performed By: #### E RUR ####[facility] Cfwnpuawqu9849[address] [place], [place] [address]Dr. Devin Suresh Clarity (U) CLEAR Normal CLEAR [facility] Comment on above: Performed By: #### E RUR ####[facility] Rpkacyhnlq1874[address] [place], [place] [address]Dr. Devin Suresh Color (U) LT. YELLOW Normal YELLOW [facility] Comment on above: Performed By: #### E RUR ####[facility] Ebunzfrcje8488[address] [place], [place] [address]Dr. Devin VELAZQUEZ A micrscopic examina tion will be performed if indicated. Normal [facility] Comment on above: Performed By: #### E RUR ####[facility] Hkahxzofve3211[address] [place], [place] [address]Dr. Devin Suresh Glucose Ql (U) 500 mg/dl Abnormal NEGATIVE The [facility] Comment on above: Performed By: #### E RUR ####[facility] Fuyamddbbe9335[address] [place], [place] [address]Dr. Devin Suresh Hemoglobin Ql (U) TRACE-INTACT Abnormal NEGATIVE [facility] Comment on above: Performed By: #### E RUR ####[facility] Yebjlmgzkr028[address] [place], [place] [address]Dr. Devin Suresh Ketones Ql (U) Negative Normal NEGATIVE The [facility] Comment on above: Performed By: #### E RUR ####[facility] Eopgnfwnqy762[address] [place], [place] [address]Dr. Devin Suresh LEUKOCYTES Negative Normal NEGATIVE [facility] Comment on above: Performed By: #### E RUR ####[facility] Bzahenucpk0196[address] [place], [place] [address]Dr. Devin Suresh Nitrite Ql (U) Negative Normal NEGATIVE [facility] Comment on above: Performed By: #### E RUR ####[facility] Qkjstzxldm896[address] [place], [place] [address]Dr. Devin Suresh pH (U) 6.0 [pH] Normal 5-9 [facility] Comment on above: Performed By: #### E RUR ####[facility] Bjmdbqcoto3414[address] [place], [place] [address]Dr. Devin Suresh SPEC GRAVITY 1.025 Normal 1.005-<=1.0 25 [facility] Comment on above: Performed By: #### E RUR ####[facility] Uuutuljoic6788[address] [place], [place] [address]Dr. Devin Suresh UA PROTEIN TRACE Normal NEGATIVE/ TRACE [facility] Comment on above: Performed By: #### E RUR ####[facility] Ctbcaaoclb5732 [place] [address]Dr. Devin Suresh UR MICRO IND NOT INDICATED Normal [facility] Comment on above: Performed By: #### E RUR ####[facility] Hfloljyncd3803 [place] [address]Dr. Devin Suresh Urobilinogen Qn (U) 0.2 {Sheyla'U}/dL Normal 0.2 - 1. 0 [facility] Comment on above: Performed By: #### E RUR ####[facility] Schrmmxkmz01[address] [place], [place] [address]DrMaris Suresh ETHANOL (BLD ALC)on 07-10-19 ALC NOTE NOTE: 80 mg/dl is th e legal limit for a blood alcohol level Normal [facility] Comment on above: Performed By: #### E TH ####[facility] Gftendtczd3414[address] [place], [place] [address]Dr. Devin Suresh Ethanol [Mass/Vol] mg/dL Normal [facility] Comment on above: Performed By: #### E TH ####[facility] Hutcmvcxtz8[address] [place], [place] [address]DrMaris Suresh PROF CHEM 8 (BAS METB)on Anion gap [Moles/Vol] 12.4 mmol/L Normal Th e [facility] Comment on above: Performed By: #### B MP ####[facility] Qlvluutumr6625[address] [place], [place] [address]DrMaris Suresh Calcium [Mass/Vol] 8.6 mg/dL Normal 8.5-10.1 The [facility] Comment on above: Performed By: #### B MP ####[facility] Lhzgndngvf8847[address] [place], [place] [address]DrMaris Suresh Chloride [Moles/Vol] 103 mmol/L Normal 98-107 [facility] Comment on above: Performed By: #### B MP ####[facility] Mohszausgm[address] [place], [place] [address]DrMaris Suresh CO2 [Moles/Vol] 27.5 mmol/L Normal 21.0-32.0 [facility] Comment on above: Performed By: #### B MP ####[facility] Xyeslaguob[address] [place], [place] [address]Dr. Devin Suresh Creatinine [Mass/Vol] 1.10 mg/dL Critically high 0.55-1.02 [facility] Comment on above: Performed By: #### B MP ####[facility] Ordmowmcuv6870 [place] [address]Dr. Devin Kerwin EGFR-AF CONGOLESE >60 Normal >=60 [facility] Comment on above: Performed By: #### B MP ####[facility] Twsoreffef95[address] [place], [place] [address]Dr. Tishemily Kerwin EGFR-NON AF CONGOLESE 54 mL/min/1.73m2 Critically low >=60 [facility] Comment on above: Performed By: #### B MP ####[facility] Urtouzwpxe595[address] [place], [place] [address]Dr. Devin Kerwin Glucose [Mass/Vol] 253 mg/dL Critically high 74-106 T [facility] Comment on above: Performed By: #### B MP ####[facility] Ufwfpuqxxv2037[address] [place], [place] [address]Dr. Tishemily Suresh Potassium [Moles/Vol] 3.9 mmol/L Normal 3.5-5.1 [facility] Comment on above: Performed By: #### B MP ####[facility] Bxpuujmqwa6766[address] [place], [place] [address]Dr. Devin Suresh Sodium [Moles/Vol] 139 mmol/L Normal 136-145 [facility] Comment on above: Performed By: #### B MP ####[facility] Ilqevooema44[address] [place], [place] [address]Dr. Devin Suresh Urea nitrogen [Mass/Vol] 18.0 mg/dL Normal 7.0-18.0 [facility] Comment on above: Performed By: #### B MP ####[facility] Hkvlgvpqmt6[address] [place], [place] [address]Dr. Devin Suresh Urea nitrogen/Creatinine [Mass ratio] 16.4 mg/mg Normal [facility] Comment on above: Performed By: #### B MP ####[facility] Vfhofzfkqu[address] [place], [place] [address]Dr. Devin Suresh SALICYLATEon 07-10-2022 SALICYLATE <2.8 Normal <=19.9 [facility] Comment on above: Performed By: #### A RHEA CAMPUZANO ####[facility] Xntkyqzwgf87[address] [place], [place] [address]Dr. Devin Suresh CBC AUTO DIFFon 06-21-2022 BASO # 0.1 103/ul Normal 0.0-0.1 [facility] Comment on above: Performed By: #### C BC ####[facility] Obphracqwi[address] [place], [place] [address]Dr. Tishemily Suresh Basophils/100 WBC (Bld) 0.8 % Normal 0.2-2.0 [facility] Comment on above: Performed By: #### C BC ####[facility] Uqlgggkmbo13[address] [place], [place] [address]Dr. Devin Suresh EO # 0.2 103/ul Normal 0.0-0.7 [facility] Comment on above: Performed By: #### C BC ####[facility] Bxcgsfrbuv4406[address] [place], [place] [address]Dr. Devin Suresh Eosinophils/100 WBC (Bld) 2.1 % Normal 0.9-7.0 [facility] Comment on above: Performed By: #### C BC ####[facility] Narmlqjgwh[address] [place], [place] [address]Dr. Devin Suresh Erythrocyte distribution width (RBC) [Ratio] 12.6 % Normal 11.0-15.0 [facility] Comment on above: Performed By: #### C BC ####[facility] Lyrqjthsjp9[address] [place], [place] [address]Dr. Devin Suresh Hematocrit (Bld) [Volume fraction] 34.9 % Critically low 36.0-48.0 [facility] Comment on above: Performed By: #### C BC ####[facility] [address] [place] [id number]. Devin Suresh Hemoglobin (Bld) [Mass/Vol] 12.3 g/dL Normal 12.0-16.0 [facility] Comment on above: Performed By: #### C BC ####[facility] [address]qewurx[address] [place] [address]Dr. Devin Suresh IG # 0.03 10e3/ul Normal 0.00-0.03 [facility] Comment on above: Performed By: #### C BC ####[facility] Ywmfczbzjz[address] [place] [address]Dr. Devin Suresh IG % 0.4 % Normal 0.0-0.5 [facility] Comment on above: Performed By: #### C BC ####[facility] Kjbuiajzsz[address] [place] [address]Dr. Devin Suresh LYMPH # 1.7 103/ul Normal 1.2-3.8 [facility] Comment on above: Performed By: #### C BC ####[facility] Bgfwvrfixq750[address] [place] [address]Dr. Devin Suresh Lymphocytes/100 WBC (Bld) 20.0 % Critically low 20.5-60.0 [facility] Comment on above: Performed By: #### C BC ####[facility] Ixsdkwdkdr[address] [place] [address]Dr. Devin Suresh MANUAL DIFF REQ NO Normal [facility] Comment on above: Performed By: #### C BC ####[facility] Ynvkcyxdte6070 [place] [id number]. Devin Suresh MCH (RBC) [Entitic mass] 29.6 pg Normal 26.7-34.0 [facility] Comment on above: Performed By: #### C BC ####[facility] [address] [place], [place] [id number]. Devin Suresh MCHC (RBC) [Mass/Vol] 35.2 g/dL Normal 29.9-35.2 [facility] Comment on above: Performed By: #### C BC ####[facility] Qiktjnyofg[address] [place], [place] [address]Dr. Devin Kerwin MCV (RBC) [Entitic vol] 83.9 fL Normal 81.0-99.0 [facility] Comment on above: Performed By: #### C BC ####[facility] Uumvkwybki[address] [place] [address]Dr. Devin Kerwin MONO # 0.4 103/ul Normal 0.3-0.8 [facility] Comment on above: Performed By: #### C BC ####[facility] Wddiwxmudu7139 [place] [address]Dr. Devin Suresh Monocytes/100 WBC (Bld) 5.2 % Normal 1.7-12.0 [facility] Comment on above: Performed By: #### C BC ####[facility] Bxjomifdwo[address] [place], [place] [address]Dr. Tishemily Kerwin NEUT # 6.0 103/ul Normal 1.4-6.5 [facility] Comment on above: Performed By: #### C BC ####[facility] Utixddjymv12[address] [place], [place] [address]Dr. Tishemily Suresh Neutrophils/100 WBC (Bld) 71.5 % Normal 43.0-75.0 [facility] Comment on above: Performed By: #### C BC ####[facility] Ptkizhfnbv[address] [place], [place] [address]Dr. Devin Suresh Platelet mean volume (Bld) [Entitic vol] 8.4 fL Critically low 9.5-13.5 [facility] Comment on above: Performed By: #### C BC ####[facility] Srpbreruxp[address] [place], [place] [address]Dr. Devin Suresh PLT 296 103/ul Normal 150-450 [facility] Comment on above: Performed By: #### C BC ####[facility] Wbioaogonh0406 [place] [id number]. Devin Suresh RBC 4.16 106/ul Critically low 4.20-5.40 [facility] Comment on above: Performed By: #### C BC ####[facility] Kbftqtxnly[address] [place], [place] [address]Dr. Devin Suresh WBC 8.4 103/ul Normal 4.0-11.0 [facility] Comment on above: Performed By: #### C BC ####[facility] Oddlkpqkrj[address] [place] [address]DrMaris Suresh PROF 14(COMP METB)on 023 Albumin [Mass/Vol] 3.4 g/dL Normal 3.4-5.0 [facility] Comment on above: Performed By: #### C MP ####[facility] Sbwwjpmjvi8[address] [place] [address]Dr. Devin Suresh Albumin/Globulin [Mass ratio] 1.0 {ratio} Normal [facility] Comment on above: Performed By: #### C MP ####[facility] Piqsunurgj6446 [place] [address]Dr. Devin Suresh ALP [Catalytic activity/Vol] 108 U/L Normal 46-116 [facility] Comment on above: Performed By: #### C MP ####[facility] Nbbqdhamxq[address] [place], [place] [address]Dr. Devin Suresh ALT [Catalytic activity/Vol] 15 U/L Normal 14-59 [facility] Comment on above: Performed By: #### C MP ####[facility] Vswanxtkec15[address] [place], [place] [address]Dr. Devin Suresh Anion gap [Moles/Vol] 14.6 mmol/L Normal [facility] Comment on above: Performed By: #### C MP ####[facility] Uxxgutusvx0438[address] [place], [place] [address]Dr. Devin Suresh AST [Catalytic activity/Vol] 11 U/L Critically low 15-37 [facility] Comment on above: Performed By: #### C MP ####[facility] Xqxxapwdcx4411[address] [place], [place] [address]DrMaris Suresh Bilirubin [Mass/Vol] 0.4 mg/dL Normal 0.2-1.0 [facility] Comment on above: Performed By: #### C MP ####[facility] Jnzahamswf7425[address] [place], [place] [address]Dr. Devin Suresh Calcium [Mass/Vol] 8.8 mg/dL Normal 8.5-10.1 [facility] Comment on above: Performed By: #### C MP ####[facility] Ukjdlyapgp5499 [place] [address]Dr. Devin Kerwin Chloride [Moles/Vol] 104 mmol/L Normal 98-107 [facility] Comment on above: Performed By: #### C MP ####[facility] Hprxnkzmhp[address] [place], [place] [address]Dr. Devin Kerwin CO2 [Moles/Vol] 24.2 mmol/L Normal 21.0-32.0 [facility] Comment on above: Performed By: #### C MP ####[facility] Jsbimoxuoj18[address] [place], [place] [address]Dr. Devin Suresh Creatinine [Mass/Vol] 1.35 mg/dL Critically high 0.55-1.02 [facility] Comment on above: Performed By: #### C MP ####[facility] Jkeysfpnjn9623[address] [place], [place] [address]Dr. Devin Kerwin EGFR-AF CONGOLESE 51 mL/min/1.73m2 Critically low >=60 [facility] Comment on above: Performed By: #### C MP ####[facility] Axpeblqjos15[address] [place], [place] [address]Dr. Devin Kerwin EGFR-NON AF CONGOLESE 42 mL/min/1.73m2 Critically low >=60 [facility] Comment on above: Performed By: #### C MP ####[facility] Xkyqplbrbe60[address] [place], [place] [address]Dr. Devin Kerwin Globulin (S) [Mass/Vol] 3.5 g/dL Normal [facility] Comment on above: Performed By: #### C MP ####[facility] Bvatdihmwt6[address] [place], [place] [address]Dr. Devin Suresh Glucose [Mass/Vol] 265 mg/dL Critically high 74-106 [facility] Comment on above: Performed By: #### C MP ####[facility] Cumpgjjszp0134[address] [place], [place] [address]Dr. Devin Suresh Potassium [Moles/Vol] 3.8 mmol/L Normal 3.5-5.1 [facility] Comment on above: Performed By: #### C MP ####[facility] Dfbmwylube18[address] [place], [place] [address]Dr. Devin Suresh Protein [Mass/Vol] 6.9 g/dL Normal 6.4-8.2 [facility] Comment on above: Performed By: #### C MP ####[facility] Jwffzlxmgu12[address] [place], [place] [address]Dr. Devin Kerwin Sodium [Moles/Vol] 139 mmol/L Normal 136-145 [facility] Comment on above: Performed By: #### C MP ####[facility] Omedutsikd4062[address] [place], [place] [address]Dr. Devin Kerwin Urea nitrogen [Mass/Vol] 23.0 mg/dL Critically high 7.0-18.0 [facility] Comment on above: Performed By: #### C MP ####[facility] Rkdeuxseva68[address] [place], [place] [address]Dr. Devin Kerwin Urea nitrogen/Creatinine [Mass ratio] 17.0 mg/mg Normal [facility] Comment on above: Performed By: #### C MP ####[facility] Kwhbgxkqmu[address] [place], [place] [address]Dr. Devin Kerwin CBC AUTO DIFFon 06-11-2022 BASO # 0.1 103/ul Normal 0.0-0.1 [facility] Comment on above: Performed By: #### C BC ####[facility] Ascnzzcbey[address] [place], [place] [address]Dr. Devin Kerwin Basophils/100 WBC (Bld) 0.7 % Normal 0.2-2.0 [facility] Comment on above: Performed By: #### C BC ####[facility] Kmefxkhuop89[address] [place], [place] [address]Dr. Devin Suresh EO # 0.2 103/ul Normal 0.0-0.7 [facility] Comment on above: Performed By: #### C BC ####[facility] Nxixtzhcgw045[address] [place] [address]Dr. Devin Suresh Eosinophils/100 WBC (Bld) 2.2 % Normal 0.9-7.0 [facility] Comment on above: Performed By: #### C BC ####[facility] Amojontuiq1815[address] [place], [place] [address]Dr. Devin Suresh Erythrocyte distribution width (RBC) [Ratio] 12.5 % Normal 11.0-15.0 [facility] Comment on above: Performed By: #### C BC ####[facility] Rrrnfpzshg[address] [place], [place] [address]Dr. Devin Suresh Hematocrit (Bld) [Volume fraction] 40.2 % Normal 36.0-48.0 [facility] Comment on above: Performed By: #### C BC ####[facility] Ijwetgaopc92[address] [place], [place] [address]Dr. Devin Suresh Hemoglobin (Bld) [Mass/Vol] 13.8 g/dL Normal 12.0-16.0 [facility] Comment on above: Performed By: #### C BC ####[facility] Xkdteiotsr4[address] [place], [place] [address]Dr. Devin Suresh IG # 0.03 10e3/ul Normal 0.00-0.03 [facility] Comment on above: Performed By: #### C BC ####[facility] Nnjoonddfx99[address] [place], [place] [address]Dr. Devin Suresh IG % 0.3 % Normal 0.0-0.5 [facility] Comment on above: Performed By: #### C BC ####[facility] Rwiesoxvzw7[address] [place], [place] [address]Dr. Devin Suresh LYMPH # 2.7 103/ul Normal 1.2-3.8 [facility] Comment on above: Performed By: #### C BC ####[facility] Ldtczdxqym24[address] [place], [place] [address]Dr. Devin Suresh Lymphocytes/100 WBC (Bld) 26.4 % Normal 20.5-60.0 [facility] Comment on above: Performed By: #### C BC ####[facility] Tbnioiowcn[address] [place] [address]Dr. Devin Kerwin MANUAL DIFF REQ NO Normal [facility] Comment on above: Performed By: #### C BC ####[facility] Kozkunaauz9[address] [place] [address]Dr. Devin Suresh MCH (RBC) [Entitic mass] 30.0 pg Normal 26.7-34.0 [facility] Comment on above: Performed By: #### C BC ####[facility] Yzlvggkbvf7440 [place] [address]Dr. Devin Kerwin MCHC (RBC) [Mass/Vol] 34.3 g/dL Normal 29.9-35.2 [facility] Comment on above: Performed By: #### C BC ####[facility] Gdhtmyqbxf8834 [place] [address]Dr. Tishemily Suresh MCV (RBC) [Entitic vol] 87.4 fL Normal 81.0-99.0 [facility] Comment on above: Performed By: #### C BC ####[facility] Gyrlduljxn7[address] [place], [place] [address]Dr. Devin Kerwin MONO # 0.6 103/ul Normal 0.3-0.8 [facility] Comment on above: Performed By: #### C BC ####[facility] Bdehjaowrc1225[address] [place], [place] [address]Dr. Tishemily Suresh Monocytes/100 WBC (Bld) 5.8 % Normal 1.7-12.0 [facility] Comment on above: Performed By: #### C BC ####[facility] Vductefiaq[address] [place] [address]Dr. Devin Suresh NEUT # 6.7 103/ul Critically high 1.4-6.5 [facility] Comment on above: Performed By: #### C BC ####[facility] Evkcsxeiem10[address] [place], [place] [address]Dr. Devin Suresh Neutrophils/100 WBC (Bld) 64.6 % Normal 43.0-75.0 [facility] Comment on above: Performed By: #### C BC ####[facility] Wejleegsso4[address] [place] [address]Dr. Devin Suresh Platelet mean volume (Bld) [Entitic vol] 8.7 fL Critically low 9.5-13.5 [facility] Comment on above: Performed By: #### C BC ####[facility] Qgzxvjdjtn2950 [place] [id number]. Devin Kerwin PLT 345 103/ul Normal 150-450 [facility] Comment on above: Performed By: #### C BC ####[facility] Kgivvixltp3416 [place] [address]Dr. Tishemily Kerwin RBC 4.60 106/ul Normal 4.20-5.40 [facility] Comment on above: Performed By: #### C BC ####[facility] Keyibfzmid9[address] [place], [place] [address]Dr. Tishemily Kerwin WBC 10.3 103/ul Normal 4.0-11.0 [facility] Comment on above: Performed By: #### C BC ####[facility] Abhwbpigau6[address] [place] [address]Dr. Devin Suresh CT HEAD WO CONon 06-11-2022 CT HEAD WO CON Normal [facility] LACTATE/LACTIC ACIDon 2022 Lactate [Moles/Vol] 1.9 mmol/L Normal 0.4-1.9 [facility] Comment on above: Performed By: #### L ACT ####[facility] Cazdpdavfj32[address] [place], [place] [address]Dr. Devin Suresh POINT OF CARE GLUCOSEon 05-25 Glucose [Mass/Vol] 245 mg/dL Critically high 74-106 [facility] Comment on above: Performed By: #### P OCGLUC ####[facility] Cpgrqiecct[address] [place], [place] [address]Dr. Devin Suresh PROF 14(COMP METB)on 023 Albumin [Mass/Vol] 3.7 g/dL Normal 3.4-5.0 [facility] Comment on above: Performed By: #### C MP, HSTROPN ####[facility] Jykzlxtdpb6101 [place] [address]Dr. Devin Suresh Albumin/Globulin [Mass ratio] 1.0 {ratio} Normal [facility] Comment on above: Performed By: #### C STU, HSTROPN ####[facility] Pgbgloobdp4693 [place] [address]Dr. Tishemily Suresh ALP [Catalytic activity/Vol] 123 U/L Critically high 46-116 [facility] Comment on above: Performed By: #### C STU, HSTROPN ####[facility] Kozdtothdb7363 [place] [address]Dr. Devin Suresh ALT [Catalytic activity/Vol] 15 U/L Normal 14-59 [facility] Comment on above: Performed By: #### C STU, HSTROPN ####[facility] Vzymiioass[address] [place], [place] [address]Dr. Devin Suresh Anion gap [Moles/Vol] 12.7 mmol/L Normal [facility] Comment on above: Performed By: #### C STU, HSTROPN ####[facility] Lktnhxdbum8534[address] [place], [place] [address]Dr. Devin Suresh AST [Catalytic activity/Vol] 11 U/L Critically low 15-37 [facility] Comment on above: Performed By: #### C STU, HSTROPN ####[facility] Qqnrfjiudr[address] [place], [place] [address]Dr. Devin Suresh Bilirubin [Mass/Vol] 0.4 mg/dL Normal 0.2-1.0 [facility] Comment on above: Performed By: #### C STU, HSTROPN ####[facility] Ldkirrwdbf1850 [place] [address]Dr. Devin Suresh Calcium [Mass/Vol] 9.5 mg/dL Normal 8.5-10.1 [facility] Comment on above: Performed By: #### C STU, HSTROPN ####[facility] Ghsbyiiftn[address] [place], [place] [address]Dr. Devin Suresh Chloride [Moles/Vol] 105 mmol/L Normal 98-107 [facility] Comment on above: Performed By: #### C MP, HSTROPN ####[facility] Bxvnmpyfpx7013 [place] [address]Dr. Devin Suresh CO2 [Moles/Vol] 27.5 mmol/L Normal 21.0-32.0 [facility] Comment on above: Performed By: #### C MP, HSTROPN ####[facility] Shktfqxtbr8228 [place] [address]Dr. Devin Suresh Creatinine [Mass/Vol] 0.83 mg/dL Normal 0.55-1.02 [facility] Comment on above: Performed By: #### C MP, HSTROPN ####[facility] Qkeuxkbuvj8086 [place] [address]Dr. Devin Suresh EGFR-AF CONGOLESE >60 Normal >=60 [facility] Comment on above: Performed By: #### C MP, HSTROPN ####[facility] Afuczmrsfd6[address] [place], [place] [address]Dr. Devin Suresh EGFR-NON AF CONGOLESE >60 Normal >=60 [facility] Comment on above: Performed By: #### C MP, HSTROPN ####[facility] Kistkbmpcg9[address] [place], [place] [address]Dr. Devin Suresh Globulin (S) [Mass/Vol] 3.7 g/dL Normal [facility] Comment on above: Performed By: #### C MP, HSTROPN ####[facility] Pqmxrtpygd6422 [place] [address]Dr. Devin Suresh Glucose [Mass/Vol] 66 mg/dL Critically low 74-106 Th [facility] Comment on above: Performed By: #### C MP, HSTROPN ####[facility] Ymqgumthco9229 [place] [address]Dr. Devin Suresh Potassium [Moles/Vol] 3.2 mmol/L Critically low 3.5-5.1 [facility] Comment on above: Performed By: #### C MP, HSTROPN ####[facility] Pulfbsupqs8265 [place] [address]Dr. Devin Suresh Protein [Mass/Vol] 7.4 g/dL Normal 6.4-8.2 [facility] Comment on above: Performed By: #### C MP, HSTROPN ####[facility] Ktbqsdzyvn3133 [place] [address]Dr. Devin Suresh Sodium [Moles/Vol] 142 mmol/L Normal 136-145 [facility] Comment on above: Performed By: #### C MP, HSTROPN ####[facility] Nvbpaqcjcc4504 [place] [address]Dr. Devin Suresh Urea nitrogen [Mass/Vol] 15.0 mg/dL Normal 7.0-18.0 [facility] Comment on above: Performed By: #### C STU, HSTROPN ####[facility] Cggxeswtbo7646 [place] [address]Dr. Devin Suresh Urea nitrogen/Creatinine [Mass ratio] 18.1 mg/mg Normal [facility] Comment on above: Performed By: #### C STU, HSTROPN ####[facility] Onrbdwfhjy[address] [place], [place] [address]Dr. Devin Suresh TROPONIN, HIGH SENSITIVITYon 06-11-2022 HSTROP 5.5 pg/mL Normal 4.0-51.3 [facility] Comment on above: Result Comment: CUT- OFF POINTS HAVE BEEN ESTABLISHED BASED ON THE FOURTH UNIVERSAL DEFINITIONS OF MYOCARDIALINFARCTION. THE UPPER REFERENCE LIMIT (URL) OF TROPONIN, DEFINED THE 99TH PERCENTILE OFcTnI DISTRIBUTION IN A REFERENCE POPULATION, HAS BEEN CONFIRMED THE DECISION THRESHOLDFOR NM DIAGNOSIS. Performed By: #### H STROPN ####[facility] [address]zzzkakeng[address] [place], [place] [address]Dr. Devin Suresh HSTROP 5.1 pg/mL Normal 4.0-51.3 [facility] Comment on above: Result Comment: CUT- OFF POINTS HAVE BEEN ESTABLISHED BASED ON THE FOURTH UNIVERSAL DEFINITIONS OF MYOCARDIALINFARCTION. THE UPPER REFERENCE LIMIT (URL) OF TROPONIN, DEFINED THE 99TH PERCENTILE OFcTnI DISTRIBUTION IN A REFERENCE POPULATION, HAS BEEN CONFIRMED THE DECISION THRESHOLDFOR NM DIAGNOSIS. Performed By: #### C MP, HSTROPN ####[facility] Mbzsrmbbrp3240 [place], [place] [address]Zv. Devin Suresh XR CHEST 1 Von 06-11-2022 XR CHEST 1 V Normal [facility] CHEMISTRYOrdered By: Lab ROP User on 06-02-2022 Glucose [Mass/Vol] 269 mg/dL High 55 - 99 mg/dL [facility] POC Subsection Comment on above: Result Comment: Noti fied RN/MD POC Device SN [id number] Invalid Interpretation Code [facility] POC Subsection POC User ID [id number] Invalid Interpretation Code [facility] POC Subsection POC Username ANETTE MURO Invalid Interpretation Code [facility] POC Subsection Glucose [Mass/Vol] 378 mg/dL High 55 - 99 mg/dL [facility] POC Subsection Comment on above: Result Comment: Prema piper Meter POC Device SN [id number] Invalid Interpretation Code [facility] POC Subsection POC User ID [id number] Invalid Interpretation Code [facility] POC Subsection POC Username JANIE SCHERER Invalid Interpretation Code [facility] POC Subsection Glucose [Mass/Vol] 492 mg/dL Invalid Interpretation Code 55 - 99 mg/dL [facility] POC Subsection POC Device SN [id number] Invalid Interpretation Code [facility] POC Subsection POC User ID [id number] Invalid Interpretation Code [facility] POC Subsection POC [...] rate/Area] mL/min/1.73 m2 Normal >=59mL/min/ 1.73 m2 [facility] [place] GFR/1.73 sq M.predicted among non-blacks MDRD (S/P/Bld) [Vol rate/Area] mL/min/1.73 m2 Normal >=59mL/min/ 1.73 m2 [facility] [place] Globulin (S) [Mass/Vol] 3.5 g/dL [...] Interpretation Code Negative [facility] UA Auto SS Powers.plasma/Lithiu m.RBC (Bld) [Mass ratio] 0-3 /HPF Normal [...] [facility] UA Auto SS Urobilinogen Qn (U) 0.6462764 {Sheyla'U}/dL Normal 0.0 - 1.0 EU/dL [facility] UA Auto SS WBC Auto Ql (U) Negative (06/02/22 6:10 PM) Normal Negative [facility] UA Auto SS WBC LM.HPF (Urine sed) [#/Area] 0-5 /HPF Normal 0-5/HPF [facility] Auto SS Yeast LM Ql (Urine sed) Trace (06/02/22 6:10 PM) Normal [facility] UA Auto SS CULTURE URINEon 04-23-2022 CULTURE URINE Normal [facility] Comment on above: Performed By: #### U RCX ####[facility] Hmuokfghag[address] [place] [address]DrMaris Suresh POINT OF CARE GLUCOSEon 03-26 Glucose [Mass/Vol] 359 mg/dL Critically high 74-106 [facility] Comment on above: Performed By: #### P OCGLUC ####[facility] Fnmzymigxs0284 [place] [address]DrMaris Suresh AMYLASEon 04-20-2022 Amylase [Catalytic activity/Vol] 15 U/L Critically low 25-115 [facility] Comment on above: Performed By: #### L WASHINGTON, RADHA, CMP ####[facility] Itnqninjrx75[address] [place] [address]Dr. Devin Suresh CBC AUTO DIFFon 04-20-2022 BASO # 0.0 103/ul Normal 0.0-0.1 [facility] Comment on above: Performed By: #### C BC ####[facility] Peujyirecb[address] [place], [place] [address]Dr. Devin Suresh Basophils/100 WBC (Bld) 0.2 % Normal 0.2-2.0 [facility] Comment on above: Performed By: #### C BC ####[facility] Gztwmtmwlx[address] [place], [place] [address]Dr. Devin Suresh EO # 0.1 103/ul Normal 0.0-0.7 [facility] Comment on above: Performed By: #### C BC ####[facility] Szqtqmrdop[address] [place], [place] [address]Dr. Devin Suresh Eosinophils/100 WBC (Bld) 0.7 % Critically low 0.9-7.0 [facility] Comment on above: Performed By: #### C BC ####[facility] [address]yqxgrcbtx[address] [place], [place] [address]Dr. Devin Suresh Erythrocyte distribution width (RBC) [Ratio] 12.7 % Normal 11.0-15.0 [facility] Comment on above: Performed By: #### C BC ####[facility] Knieuiuppy[address] [place], [place] [address]Dr. Devin Suresh Hematocrit (Bld) [Volume fraction] 34.7 % Critically low 36.0-48.0 [facility] Comment on above: Performed By: #### C BC ####[facility] Mbjqozvrng0[address] [place], [place] [address]Dr. Devin Suresh Hemoglobin (Bld) [Mass/Vol] 12.1 g/dL Normal 12.0-16.0 [facility] Comment on above: Performed By: #### C BC ####[facility] [facility] [address] [place] [address]Dr. Devin Suresh IG # 0.05 10e3/ul Critically high 0.00-0.03 The [facility] Comment on above: Performed By: #### C BC ####[facility] [address]yxb[address]xc[address] [place] [address]Dr. Devin Kerwin IG % 0.4 % Normal 0.0-0.5 The [facility] Comment on above: Performed By: #### C BC ####[facility] K[address]lwsklix[address] [place] [address]Dr. Tishemily Kerwin LYMPH # 0.3 103/ul Critically low 1.2-3.8 The [facility] Comment on above: Performed By: #### C BC ####[facility] Nnmnciaqqd[address] [place] [address]Dr. Devin Suresh Lymphocytes/100 WBC (Bld) 2.6 % Critically low 20.5-60.0 The [facility] Comment on above: Performed By: #### C BC ####[facility] Udxydknggu[address] [place] [address]Dr. Tishemily Suresh MANUAL DIFF REQ NO Normal [facility] Comment on above: Performed By: #### C BC ####[facility] [address]eizjvgbk[address] [place] [address]Dr. Devin Suresh MCH (RBC) [Entitic mass] 30.6 pg Normal 26.7-34.0 The [facility] Comment on above: Performed By: #### C BC ####[facility] Miiqlpeewr[address] [place] [address]Dr. Devin Suresh MCHC (RBC) [Mass/Vol] 34.9 g/dL Normal 29.9-35.2 [facility] Comment on above: Performed By: #### C BC ####[facility] Qtkrpiolbi[address] [place] [address]Dr. Devin Kerwin MCV (RBC) [Entitic vol] 87.6 fL Normal 81.0-99.0 [facility] Comment on above: Performed By: #### C BC ####[facility] [address]ie[address] [place] [id number]. Devin Suresh MONO # 0.3 103/ul Normal 0.3-0.8 The [facility] Comment on above: Performed By: #### C BC ####[facility] Iqekomiadk[address] [place] [id number]. Devin Suresh Monocytes/100 WBC (Bld) 2.5 % Normal 1.7-12.0 The [facility] Comment on above: Performed By: #### C BC ####[facility] Qeiaqbkzfz6[address] [place] [phone]. Devin Suresh NEUT # 11.9 103/ul Critically high 1.4-6.5 The [facility] Comment on above: Performed By: #### C BC ####[facility] Ygaonfubkr[address] [place] [address]Dr. Devin Suresh Neutrophils/100 WBC (Bld) 93.6 % Critically high 43.0-75.0 The [facility] Comment on above: Performed By: #### C BC ####[facility] Tsktpvkiuy[address] [place] [address]Dr. Devin Suresh Platelet mean volume (Bld) [Entitic vol] 9.2 fL Critically low 9.5-13.5 The [facility] Comment on above: Performed By: #### C BC ####[facility] Ypgsecvwuc[address] [place] [phone]. Devin Suresh PLT 288 103/ul Normal 150-450 The [facility] Comment on above: Performed By: #### C BC ####[facility] Pnbznznljj54[address] [place] [address]Dr. Devin Suresh RBC 3.96 106/ul Critically low 4.20-5.40 [facility] Comment on above: Performed By: #### C BC ####[facility] [address]ctcin[address] [place], [place] [id number]. Devin Suresh WBC 12.8 103/ul Critically high 4.0-11.0 The [facility] Comment on above: Performed By: #### C BC ####[facility] Ym[address]ktxwpt[address] [place], [place] [id number]. Devin uSresh Covid-19 PCR (CVDTBH)on 03-26 SARS-CoV-2 (COVID-19) RNA EBONIE+probe Ql (Unsp spec) Not detected Normal NOT DETECTED The [facility] Comment on above: Result Comment: When [...] for this test is supported by the [place] of Health and Human Service's declaration that [...] be used). Performed By: #### C VDTB ####[facility] Vsl[address]xbjo[address] [place], [place] [address]Dr. Devin Suresh ER URINE PROFILEon Bilirubin Ql (U) Negative Normal NEGATIVE The [facility] Comment on above: Performed By: #### REAGAN STARRRO ####[facility] Onukataitv[address] [place], [place] [address]Dr. Devin Suresh Clarity (U) CLEAR Normal CLEAR The [facility] Comment on above: Performed By: #### REAGAN STARRRO ####[facility] Mpkhczvkgb0[address] [place], [place] [address]Dr. Devin Suresh Color (U) LT. YELLOW Normal YELLOW The [facility] Comment on above: Performed By: #### Bud ALLEN UMICRO ####[facility] Ifejzolfji[address] [place], [place] [address]Dr. Devin Suresh ERUAHD A micrscopic examina tion will be performed if indicated. Normal The [facility] Comment on above: Performed By: #### CHUCKY STARR ####[facility] Fuyvxrpmos[address] [place] [address]Dr. Devin Suresh Glucose Ql (U) >1000 Abnormal NEGATIVE The [facility] Comment on above: Performed By: #### CHUCKY STARR ####[facility] Zftblotryz[address] [place] [address]Dr. Tishemily Suresh Hemoglobin Ql (U) TRACE-INTACT Abnormal NEGATIVE [facility] Comment on above: Performed By: #### CHUCKY STARR ####[facility] Fdrcttemhz[address] [place], [place] [address]Dr. Devin Suersh Ketones Ql (U) TRACE Abnormal NEGATIVE The [facility] Comment on above: Performed By: #### CHUCKY STARR ####[facility] Jsekryjsjl[address] [place], [place] [address]Dr. Devin Suresh LEUKOCYTES Negative Normal NEGATIVE [facility] Comment on above: Performed By: #### CHUCKY STARR ####[facility] Oswgteseji7[address] [place], [place] [address]Dr. Tishemily Suresh Nitrite Ql (U) Positive Abnormal NEGATIVE The [facility] Comment on above: Performed By: #### CHUCKY STARR ####[facility] Yshlnabxtq[address] [place], [place] [address]Dr. Tishemily Suresh pH (U) 5.0 [pH] Normal 5-9 [facility] Comment on above: Performed By: #### CHUCKY STARR ####[facility] Phxuabvjvd[address] [place], [place] [address]Dr. Tishemily Kerwin SPEC GRAVITY 1.015 Normal 1.005-<=1.0 25 The [facility] Comment on above: Performed By: #### CHUCKY STARR ####[facility] Trhxkluwuc[address] [place], [place] [address]Dr. Devin Suresh UA PROTEIN Negative Normal NEGATIVE/ TRACE The [facility] Comment on above: Performed By: #### CHUCKY STARR ####[facility] Hpseawnhlc[address] [place], [place] [address]Dr. Devin Suresh UR MICRO IND INDICATED Normal [facility] Comment on above: Performed By: #### CHUCKY STARR ####[facility] Erhkzkaqyn[address] [place], [place] [address]Dr. Devin Suresh Urobilinogen Qn (U) 0.2 {Sheyla'U}/dL Normal 0.2 - 1. 0 The [facility] Comment on above: Performed By: #### CHUCKY STARR ####[facility] Qurymjxkoj[address] [place], [place] [address]Dr. Devin Suresh INFLUENZA A AND B AGon 04-20 INFLUENZA A AG Negative Normal NEGATIVE SEE COMMENT The [facility] Comment on above: Performed By: #### R MONICA, INFLUAB ####[facility] Dxqjqajzto[address] [place], [place] [address]Dr. Devin Suresh INFLUENZA B AG Negative Normal NEGATIVE SEE COMMENT The [facility] Comment on above: Performed By: #### R SV, INFLUAB ####[facility] Cfuitvawbl[address] [place], [place] [address]Dr. Devin Suresh INFLUPOSH SEE BELOW Normal The [facility] Comment on above: Result Comment: NOTE : Live attenuated influenzae vaccine viruses can cause a positive result for a rapid influenza diagnostic test if administered up to 7 days prior to rapid testing. Performed By: #### R SV, INFLUAB ####[facility] Pzjuzzwdld[address] [place], [place] [address]Dr. Devin Suresh INFLUPOSHB SEE BELOW Normal The [facility] Comment on above: Result Comment: NOTE : Live attenuated influenzae vaccine viruses can cause a positive result for a rapid influenza diagnostic test if administered up to 7 days prior to rapid testing. Performed By: #### R SV, INFLUAB ####[facility] Gfwygscegx[address] [place], [place] [address]Dr. Devin Suresh INTERNAL CONTROLS Within Normal Limits Normal Wi thin Normal Limits The [facility] Comment on above: Performed By: #### R SV, INFLUAB ####[facility] Mccgqzbhxt[address] [place], [place] [address]Dr. Devin Suresh LACTATE/LACTIC ACIDon 2021 Lactate [Moles/Vol] 1.9 mmol/L Normal 0.4-1.9 [facility] Comment on above: Performed By: #### L ACT ####[facility] [address]gsxyv[address] [place] [address]Dr. Devin Suresh LIPASEon 04-20-2022 Lipase [Catalytic activity/Vol] 111.0 U/L Normal 73.0-393.0 [facility] Comment on above: Performed By: #### L RADHA DELAROSA, CMP ####[facility] Uswxkwrzxc[address] [place] [address]Dr. Devin Suresh POINT OF CARE GLUCOSEon 03-26 Glucose [Mass/Vol] 573 mg/dL Critically high 74-106 [facility] Comment on above: Result Comment: Lab Draw Ordered Performed By: #### P OCGLUC ####[facility] [address]hw[address] [place], [place] [address]DrMaris Suresh PROF 14(COMP METB)on 022 Albumin [Mass/Vol] 3.4 g/dL Normal 3.4-5.0 [facility] Comment on above: Performed By: #### L RADHA DELAROSA, CMP ####[facility] Khtopuripe[address] [place], [place] [address]Dr. Devin Suresh Albumin/Globulin [Mass ratio] 0.9 {ratio} Normal [facility] Comment on above: Performed By: #### L RADHA DELAROSA, CMP ####[facility] W[address]rjhzvlx[address] [place] [address]Dr. Devin Suresh ALP [Catalytic activity/Vol] 132 U/L Critically high 46-116 [facility] Comment on above: Performed By: #### L RADHA DELAROSA, CMP ####[facility] Nkvvunxhqw[address] [place] [address]Dr. Devin Suresh ALT [Catalytic activity/Vol] 16 U/L Normal 14-59 [facility] Comment on above: Performed By: #### L RADHA DELAROSA, CMP ####[facility] Gkzrdwitvj[address] [place] [address]Dr. Devin Suresh Anion gap [Moles/Vol] 12.3 mmol/L Normal [facility] Comment on above: Performed By: #### L RADHA DELAROSA, CMP ####[facility] Lfduqjtgss[address] [place] [address]Dr. Devin Suresh AST [Catalytic activity/Vol] 9 U/L Critically low 15-37 [facility] Comment on above: Performed By: #### L RADHA DELAROSA, CMP ####[facility] Dwlmoxvbqu4[address] [place] [address]Dr. Devin Suresh Bilirubin [Mass/Vol] 0.9 mg/dL Normal 0.2-1.0 [facility] Comment on above: Performed By: #### L RADHA DELAROSA, CMP ####[facility] [address]pdivkafz[address] [place], [place] [address]Dr. Devin Suresh Calcium [Mass/Vol] 9.0 mg/dL Normal 8.5-10.1 [facility] Comment on above: Performed By: #### L RADHA DELAROSA, CMP ####[facility] Id[address]ktukjq[address] [place], [place] [address]Dr. Devin Suresh Chloride [Moles/Vol] 96 mmol/L Critically low 98-107 [facility] Comment on above: Performed By: #### L RADHA DELAROSA, CMP ####[facility] Atglgatieq[address] [place], [place] [address]Dr. Devin Suresh CO2 [Moles/Vol] 26.0 mmol/L Normal 21.0-32.0 The [facility] Comment on above: Performed By: #### L RADHA DELAROSA, CMP ####[facility] Kkg[address]mbwkup[address] [place] [address]Dr. Devin Suresh Creatinine [Mass/Vol] 1.15 mg/dL Critically high 0.55-1.02 [facility] Comment on above: Performed By: #### L RADHA DELAROSA, CMP ####[facility] M[address]kyrmtde[address] [place] [address]Dr. Devin Suresh EGFR-AF CONGOLESE >60 Normal >=60 The [facility] Comment on above: Performed By: #### L RADHA DELAROSA, CMP ####[facility] Hersajizvz[address] [place] [phone]. Devin Suresh EGFR-NON AF CONGOLESE 51 mL/min/1.73m2 Critically low >=60 [facility] Comment on above: Performed By: #### L RADHA DELAROSA, CMP ####[facility] Ujaupzzugv[address] [place] [address]Dr. Devin Suresh Globulin (S) [Mass/Vol] 3.7 g/dL Normal [facility] Comment on above: Performed By: #### L RADHA DELAROSA, CMP ####[facility] Qozhrqklig[address] [place] [address]Dr. Devin Suresh Glucose [Mass/Vol] 590 mg/dL Critically high 74-106 [facility] Comment on above: Performed By: #### L RADHA DELAROSA, CMP ####[facility] Lpykqtbuup216[address] [place] [address]Dr. Devin Suresh Potassium [Moles/Vol] 4.3 mmol/L Normal 3.5-5.1 [facility] Comment on above: Performed By: #### L RADHA DELAROSA, CMP ####[facility] Fnwxhtxqlp[address] [place] [address]Dr. Devin Suresh Protein [Mass/Vol] 7.1 g/dL Normal 6.4-8.2 [facility] Comment on above: Performed By: #### L RADHA DELAROSA, CMP ####[facility] Vjyeptkqyp[address] [place] [address]Dr. Devin Suresh Sodium [Moles/Vol] 130 mmol/L Critically low 136-145 Th [facility] Comment on above: Performed By: #### L RADHA DELAROSA, CMP ####[facility] Nmlhtsjctm36[address] [place] [address]Dr. Devin Suresh Urea nitrogen [Mass/Vol] 22.0 mg/dL Critically high 7.0-18.0 [facility] Comment on above: Performed By: #### L RADHA DELAROSA, CMP ####[facility] Gxaxjymadv[address] [place] [address]Dr. Devin Suresh Urea nitrogen/Creatinine [Mass ratio] 19.1 mg/mg Normal [facility] Comment on above: Performed By: #### L IPA, RADHA, CMP ####[facility] J[address]shkwxpra[address] [place] [address]Dr. Devin Suresh RSVon 04-20-2022 RSV AG Negative Normal NEGATIVE [facility] Comment on above: Performed By: #### R SV, INFLUAB ####[facility] Apffkivdsb[address] [place], [place] [address]Dr. Tishemily Kerwin URINE MICROSCOPIC ONLYon BACTERIA MODERATE Abnormal NONE SEEN The [facility] Comment on above: Performed By: #### E RUR, UMICRO ####[facility] Isyonbrxxr[address] [place], [place] [address]Dr. Devin Suresh Bacteria identified Cx Nom (U) INDICATED Normal [facility] Comment on above: Performed By: #### E RUR, UMICRO ####[facility] [address]lfc[address]ai[address] [place], [place] [address]Dr. Devin Suresh CAST NONE SEEN Normal NONE SEEN [facility] Comment on above: Performed By: #### E RUR, UMICRO ####[facility] Tsnbldqsya[address] [place], [place] [address]Dr. Devin Suresh Crystals LM Nom (Urine sed) NONE SEEN Normal NONE SEEN [facility] Comment on above: Performed By: #### E RUR, UMICRO ####[facility] [address]fjdkqzf[address] [place], [place] [address]Dr. Devin Suresh Epithelial cells LM Ql (Urine sed) RARE Normal NONE SEEN /RARE [facility] Comment on above: Performed By: #### E RUR, UMICRO ####[facility] Uklvmxdrei[address] [place], [place] [address]Dr. Devin Suresh MUCOUS NONE SEEN Normal NONE SEEN [facility] Comment on above: Performed By: #### E RUR, UMICRO ####[facility] Bvvhwurnmg[address] [place] [address]Dr. Devin Suresh RBC NONE SEEN Abnormal 0-2 [facility] Comment on above: Performed By: #### E RUR, UMICRO ####[facility] [address]cp[address] [place], [place] [address]Qu. Devin Suresh WBC 2-5 Abnormal NONE SEEN [facility] Comment on above: Performed By: #### CHUCKY STARR ####[facility] Yjtstak[address]w2[address] [place], [place] [address]Ua. Devin Suresh XR CHEST 2 Von 04-20-2022 XR CHEST 2 V Normal [facility] CHEMISTRYOrdered By: Lab ROP User on 04-09-2022 Glucose [Mass/Vol] 105 mg/dL High 55 - 99 mg/dL [facility] POC Subsection Comment on above: Result Comment: Peter yeh RN/ POC Device SN [id number] Invalid Interpretation Code [facility] POC Subsection POC User ID [id number] Invalid Interpretation Code [facility] POC Subsection POC Username Michi Huynh Invalid Interpretation Code [facility] POC Subsection Glucose [Mass/Vol] 50 mg/dL Low 55 - 99 mg/dL [facility] POC Subsection Comment on above: Result Comment: Peter yeh RN/ POC Device SN [id number] Invalid Interpretation Code [facility] POC Subsection POC User ID [id number] Invalid Interpretation Code [facility] POC Subsection POC Username Michi Huynh Invalid Interpretation Code [facility] POC Subsection Glucose [Mass/Vol] 53 mg/dL Low 55 - 99 mg/dL [facility] POC Subsection Comment on above: Result Comment: Peter yeh RN/ POC Device SN [id number] Invalid Interpretation Code [facility] POC Subsection POC User ID [id number] Invalid Interpretation Code [facility] POC Subsection POC [...] rate/Area] mL/min/1.73 m2 Normal >=59mL/min/ 1.73 m2 [facility] Chem S GFR/1.73 sq M.predicted among non-blacks MDRD (S/P/Bld) [Vol rate/Area] 54 mL/min/1.73 m2 Low >=59mL/min/ 1.73 m2 [facility] Chem S Glucose [Mass/Vol] 122 mg/dL Normal 55 - 199 mg/dL [facility] Remisol Magnesium [Mass/Vol] 2.6 mg/dL High 1.3 - 2 .4 mg/dL [facility] Remisol Potassium [Moles/Vol] 3.7 mmol/L Normal 3.5 - 5.3 mmol/L [facility] Sodium [Moles/Vol] 137 mmol/L Normal 135 - 145 mmol/L [facility] Remisol Urea nitrogen [Mass/Vol] 27 mg/dL High 5 - 21 mg/dL [facility] Remisol Urea nitrogen/Creatinine [Mass ratio] 24 mg/mg High 10 - 20 [facility] Remisol CHEMISTRYOrdered By: SYSTEM SYSTEM on 04-07-2022 Anion gap [Moles/Vol] 11 mmol/L Normal 6 - 16 mEq/L [facility] Remisol Calcium [Mass/Vol] 8.8 mg/dL Low 8.9 - 11. 1 mg/dL [facility] Remisol Chloride [Moles/Vol] 102 mmol/L Normal 101 - 1 11 mmol/L [facility] Remisol CO2 [Moles/Vol] 22 mmol/L Normal 21 - 31 mmol/L [facility] Remisol Creatinine [Mass/Vol] 1.0 mg/dL Normal 0.5 - 1.3 mg/dL [facility] Remisol GFR/1.73 sq M.predicted among blacks MDRD (S/P/Bld) [Vol rate/Area] mL/min/1.73 m2 Normal >=59mL/min/ 1.73 m2 [facility] Chem S GFR/1.73 sq M.predicted among non-blacks MDRD (S/P/Bld) [Vol rate/Area] 60 mL/min/1.73 m2 Normal >=59mL/min/ 1.73 m2 [facility] Chem S Glucose [Mass/Vol] 372 mg/dL High [...] rate/Area] mL/min/1.73 m2 Normal >=59mL/min/ 1.73 m2 [facility] Chem S GFR/1.73 sq M.predicted among non-blacks MDRD (S/P/Bld) [Vol rate/Area] mL/min/1.73 m2 Normal >=59mL/min/ 1.73 m2 [facility] Chem S Globulin (S) [Mass/Vol] 3.2 g/dL Normal 1.4 - 4.0 gm/dL [facility] Remisol Glucose [Mass/Vol] 419 mg/dL High 55 - 199 mg/dL [facility] Remisol Lipase [Catalytic activity/Vol] 22 U/L Normal 13 - 58 unit/L [facility] Remisol Magnesium [Mass/Vol] 1.5 mg/dL Normal 1.3 - 2 .4 mg/dL [facility] Remisol Phosphate [Mass/Vol] 3.7 mg/dL Normal 1.9 - 4 .6 mg/dL [facility] Remisol Potassium [Moles/Vol] 4.2 mmol/L Normal 3.5 - 5.3 mmol/L [facility] Remisol Protein [Mass/Vol] 6.6 g/dL Normal 6.0 - 7.8 gm/dL [facility] Remisol Sodium [Moles/Vol] 133 mmol/L Low 135 - 145 mmol/L [facility] Remisol Urea nitrogen [Mass/Vol] 19 mg/dL Normal 5 - 21 mg/dL [facility] Remisol Urea nitrogen/Creatinine [Mass ratio] 21 mg/mg High 10 - 20 [facility] Remisol Beta hydroxybutyrate [Moles/Vol] 0.51 mmol/L High 0.02 - 0.27 mmol/L [facility] Remisol CHEMISTRYOrdered By: Don Montes on 04-07-2022 HbA1c (Bld) [Mass fraction] 9.7 % High <=5.9% [facility] ChemAutoSS CHEMISTRYOrdered By: Mary Lou Salas on 04-06-2022 Natriuretic peptide B (Bld) [Mass/Vol] 11 pg/mL Normal 5 - 80 pg/mL [facility] HemeManSS CHEMISTRYOrdered By: SYSTEM SYSTEM on 04-06-2022 [...] 5.7 E9/L Normal 4.0 - 11.0 E9/L [facility] HemeAutoSS No Panel InformationOrdered By: ANGPROCESSSERVER MICROBIOLOGY on 04-06-2022 Blood Culture Charcoal No growth at 2 days. Final to follow at 7 days. [facility] CT STROKE HEAD WOon 03-31-20 CT STROKE HEAD WO Normal [facility] POINT OF CARE GLUCOSEon Glucose [Mass/Vol] 178 mg/dL Critically high 74-106 T he [facility] Comment on above: Performed By: #### P OCGLUC ####[facility] [address]mf[address]ockh[address] [place] [address]Dr. Devin Suresh XR CHEST 1 Von 03-31-2022 XR CHEST 1 V Normal [facility] CBC AUTO DIFFon 03-05-2022 BASO # 0.0 103/ul Normal 0.0-0.1 [facility] Comment on above: Performed By: #### C BC ####[facility] Pywcjylmyv[address] [place] [id number]. Devin Suresh Basophils/100 WBC (Bld) 0.2 % Normal 0.2-2.0 [facility] Comment on above: Performed By: #### C BC ####[facility] Uiagslhdim[address] [place] [phone]. Devin Suresh EO # 0.0 103/ul Normal 0.0-0.7 [facility] Comment on above: Performed By: #### C BC ####[facility] Cwnonwivll[address] [place] [id number]. Devin Suresh Eosinophils/100 WBC (Bld) 0.1 % Critically low 0.9-7.0 [facility] Comment on above: Performed By: #### C BC ####[facility] Ffoholouzp[address] [place] [phone]. Devin Suresh Erythrocyte distribution width (RBC) [Ratio] 13.0 % Normal 11.0-15.0 [facility] Comment on above: Performed By: #### C BC ####[facility] Eezfdtwgno[address] [place] [phone]. Devin Suresh Hematocrit (Bld) [Volume fraction] 35.3 % Critically low 36.0-48.0 [facility] Comment on above: Performed By: #### C BC ####[facility] [address]of[address] [place], [place] [address]Dr. Devin Suresh Hemoglobin (Bld) [Mass/Vol] 11.9 g/dL Critically low 12.0-16.0 [facility] Comment on above: Performed By: #### C BC ####[facility] [address]uz[address] [place], [place] [address]Dr. Devin Suresh IG # 0.09 10e3/ul Critically high 0.00-0.03 [facility] Comment on above: Performed By: #### C BC ####[facility] [address]bcjmkmv[address] [place], [place] [address]Dr. Devin Suresh IG % 0.7 % Critically high 0.0-0.5 [facility] Comment on above: Performed By: #### C BC ####[facility] [address] [place] [address]Dr. Devin Suresh LYMPH # 2.3 103/ul Normal 1.2-3.8 [facility] Comment on above: Performed By: #### C BC ####[facility] Nchxfeiicz[address] [place], [place] [address]Dr. Devin Suresh Lymphocytes/100 WBC (Bld) 17.3 % Critically low 20.5-60.0 [facility] Comment on above: Performed By: #### C BC ####[facility] Awdjzdyptv6782 [place] [phone]. Devin Suresh MANUAL DIFF REQ NO Normal [facility] Comment on above: Performed By: #### C BC ####[facility] Nnptrtzqgs6636 [place] [phone]. Devin Kerwin MCH (RBC) [Entitic mass] 30.9 pg Normal 26.7-34.0 [facility] Comment on above: Performed By: #### C BC ####[facility] Acxnmrzrua0045 [place] [phone]. Devin Kerwin MCHC (RBC) [Mass/Vol] 33.7 g/dL Normal 29.9-35.2 [facility] Comment on above: Performed By: #### C BC ####[facility] Evlwntvbln0[address] [place], [place] [address]Dr. Tishemily Suresh MCV (RBC) [Entitic vol] 91.7 fL Normal 81.0-99.0 [facility] Comment on above: Performed By: #### C BC ####[facility] Romrfhfitz[address] [place], [place] [address]Dr. Devin Kerwin MONO # 0.6 103/ul Normal 0.3-0.8 [facility] Comment on above: Performed By: #### C BC ####[facility] Xwwzcuwgpg3812 [place] [address]Dr. Devin Suresh Monocytes/100 WBC (Bld) 4.6 % Normal 1.7-12.0 [facility] Comment on above: Performed By: #### C BC ####[facility] Ktdnlrdqzd4692 [place] [phone]. Devin Suresh NEUT # 10.2 103/ul Critically high 1.4-6.5 The [facility] Comment on above: Performed By: #### C BC ####[facility] Zjijuwmpio[address] [place], [place] [address]Dr. Devin Suresh Neutrophils/100 WBC (Bld) 77.1 % Critically high 43.0-75.0 [facility] Comment on above: Performed By: #### C BC ####[facility] Gpxztolubh5297 [place], [place] [address]Wv. Devin Suresh Platelet mean volume (Bld) [Entitic vol] 9.4 fL Critically low 9.5-13.5 [facility] Comment on above: Performed By: #### C BC ####[facility] Ehzocwzlex2311 [place], [place] [address]Op. Devin Suresh PLT 382 103/ul Normal 150-450 [facility] Comment on above: Performed By: #### C BC ####[facility] Mtiueayffs0967 [place], [place] [address]Nc. Devin Suresh RBC 3.85 106/ul Critically low 4.20-5.40 [facility] Comment on above: Performed By: #### C BC ####[facility] Llcabefufz2274 [place] [phone]. Devin Suresh WBC 13.2 103/ul Critically high 4.0-11.0 [facility] Comment on above: Performed By: #### C BC ####[facility] Lorzngrycp5[address] [place], [place] [address]Eq. Devin Suresh CT HEAD WO CONon 03-05-2022 CT HEAD WO CON Normal The [facility] CTA HEAD WO W CONon 03-05-20 CTA HEAD WO W CON Normal The [facility] GLYCOHEMOGLOBIN A1Con 2021 ADA RECOMMENDATION SEE BELOW Normal The [facility] Comment on above: Result Comment: ADA RECOMMENDED LIMIT 4.0 - 6.0 ADA THERAPEUTIC TARGET < 7.0 ACTION SUGGESTED > 7.0 Performed By: #### A 1C ####[facility] Rxxvkzgfiw8491 [place] [phone]. Devin Suresh Glucose [Mass/Vol] 249 mg/dL Normal [facility] Comment on above: Performed By: #### A 1C ####[facility] Sbfxkuinhe6980 [place], [place] [address]Uq. Devin Suresh HbA1c (Bld) [Mass fraction] 10.3 % Critically high 4.5-6.2 [facility] Comment on above: Performed By: #### A 1C ####[facility] Hqjmqdfcjt5760 [place] [address]Dr. Devin Suresh POINT OF CARE GLUCOSEon 02-22 Glucose [Mass/Vol] 276 mg/dL Critically high -106 [facility] Comment on above: Performed By: #### P OCGLUC ####[facility] Ntgytniihe7144 [place] [address]Dr. Tishemily Kerwin Glucose [Mass/Vol] 209 mg/dL Critically high 74-106 [facility] Comment on above: Performed By: #### P OCGLUC ####[facility] Foglredetp2428 [place] [address]Dr. Devin Suresh Glucose [Mass/Vol] 286 mg/dL Critically high -106 [facility] Comment on above: Performed By: #### P OCGLUC ####[facility] Nntlzfglvo7049 [place] [address]Dr. Devin Suresh PROF 14(COMP METB)on 022 Albumin [Mass/Vol] 2.9 g/dL Critically low 3.4-5.0 [facility] Comment on above: Performed By: #### C MP ####[facility] Tpqcoiexyh8059 [place] [address]Dr. Devin Suresh Albumin/Globulin [Mass ratio] 0.9 {ratio} Normal [facility] Comment on above: Performed By: #### C MP ####[facility] Zimeiatpxc3111 [place] [address]Dr. Devin Suresh ALP [Catalytic activity/Vol] 109 U/L Normal 46-116 [facility] Comment on above: Performed By: #### C MP ####[facility] Pvqtikmukh4906 [place] [address]Dr. Devin Suresh ALT [Catalytic activity/Vol] 13 U/L Critically low 14-59 [facility] Comment on above: Performed By: #### C MP ####[facility] Yippshhiap7103 [place] [address]Dr. Devin Suresh Anion gap [Moles/Vol] 12.1 mmol/L Normal Th [facility] Comment on above: Performed By: #### C MP ####[facility] Guuwvtegdf3153 [place] [phone]. Devin Suresh AST [Catalytic activity/Vol] 6 U/L Critically low 15-37 [facility] Comment on above: Performed By: #### C MP ####[facility] Wlkrfmkujr6157 [place] [phone]. Devin Suresh Bilirubin [Mass/Vol] 0.4 mg/dL Normal 0.2-1.0 [facility] Comment on above: Performed By: #### C MP ####[facility] Uyhhgyxuxf3804 [place] [phone]. Devin Suresh Calcium [Mass/Vol] 8.6 mg/dL Normal 8.5-10.1 [facility] Comment on above: Performed By: #### C MP ####[facility] Qjlbpugcjb[address] [place], [place] [address]Dr. Devin Suresh Chloride [Moles/Vol] 105 mmol/L Normal 98-107 [facility] Comment on above: Performed By: #### C MP ####[facility] Jlombntwqg3259 [place] [phone]. Devin Suresh CO2 [Moles/Vol] 25.4 mmol/L Normal 21.0-32.0 [facility] Comment on above: Performed By: #### C MP ####[facility] Fyflzypgba2218 [place] [phone]. Devin Suresh Creatinine [Mass/Vol] 1.38 mg/dL Critically high 0.55-1.02 [facility] Comment on above: Performed By: #### C MP ####[facility] Odbdcblngb9632 [place] [phone]. Devin Kerwin EGFR-AF CONGOLESE 50 mL/min/1.73m2 Critically low >=60 [facility] Comment on above: Performed By: #### C MP ####[facility] Jqvlowktar2597 [place] [phone]. Tishemily Kerwin EGFR-NON AF CONGOLESE 42 mL/min/1.73m2 Critically low >=60 [facility] Comment on above: Performed By: #### C MP ####[facility] Hnmlzewfuc5904 [place] [address]Dr. Devin Suresh Globulin (S) [Mass/Vol] 3.3 g/dL Normal [facility] Comment on above: Performed By: #### C MP ####[facility] Pypudlanrq7214 [place] [phone]. Devin Suresh Glucose [Mass/Vol] 258 mg/dL Critically high 74-106 [facility] Comment on above: Performed By: #### C MP ####[facility] Edqtnoaewp3549 [place] [phone]. Devin Kerwin Potassium [Moles/Vol] 4.5 mmol/L Normal 3.5-5.1 [facility] Comment on above: Performed By: #### C MP ####[facility] Aoqmvnidas7153 [place] [address]Dr. Devin Suresh Protein [Mass/Vol] 6.2 g/dL Critically low 6.4-8.2 Th [facility] Comment on above: Performed By: #### C MP ####[facility] Mwjtzzublj4835 [place] [address]Dr. Devin Kerwin Sodium [Moles/Vol] 138 mmol/L Normal 136-145 [facility] Comment on above: Performed By: #### C MP ####[facility] Vkruextiyu5470 [place] [address]Dr. Devin Suresh Urea nitrogen [Mass/Vol] 22.0 mg/dL Critically high 7.0-18.0 [facility] Comment on above: Performed By: #### C MP ####[facility] Drtztorjhu3070 [place] [address]Dr. Devin Kerwin Urea nitrogen/Creatinine [Mass ratio] 15.9 mg/mg Normal [facility] Comment on above: Performed By: #### C MP ####[facility] Qbjwnszvoe1644 [place] [phone]. Devin Kerwin CARDIAC LAURA 3-6on 2 CK [Catalytic activity/Vol] 46 U/L Normal 26-192 [facility] Comment on above: Performed By: #### C MREP ####[facility] Rkxwvmkooq5569 [place] [address]Dr. Devin Suresh CK.MB [Mass/Vol] 0.87 ng/mL Normal <=3.60 [facility] Comment on above: Performed By: #### C MREP ####[facility] Qgmtyrclck7128 [place] [address]Dr. Devin Suresh HSTROP 8.1 pg/mL Normal 4.0-51.3 [facility] Comment on above: Result Comment: CUT- OFF POINTS HAVE BEEN ESTABLISHED BASED ON THE FOURTH UNIVERSAL DEFINITIONS OF MYOCARDIALINFARCTION. THE UPPER REFERENCE LIMIT (URL) OF TROPONIN, DEFINED THE 99TH PERCENTILE OFcTnI DISTRIBUTION IN A REFERENCE POPULATION, HAS BEEN CONFIRMED THE DECISION THRESHOLDFOR NM DIAGNOSIS. Performed By: #### C MREP ####[facility] Ecetpsrvja5653 [place] [address]Dr. Devin Suresh CK [Catalytic activity/Vol] 51 U/L Normal 26-192 [facility] Comment on above: Performed By: #### C MREP ####[facility] Mueqiaksdf2807 [place] [address]Dr. Devin Suresh CK.MB [Mass/Vol] 0.85 ng/mL Normal <=3.60 [facility] Comment on above: Performed By: #### C MREP ####[facility] Ymbgqbjbbb9565 [place] [address]Dr. Devin Suresh HSTROP 10.8 pg/mL Normal 4.0-51.3 [facility] Comment on above: Result Comment: CUT- OFF POINTS HAVE BEEN ESTABLISHED BASED ON THE FOURTH UNIVERSAL DEFINITIONS OF MYOCARDIALINFARCTION. THE UPPER REFERENCE LIMIT (URL) OF TROPONIN, DEFINED THE 99TH PERCENTILE OFcTnI DISTRIBUTION IN A REFERENCE POPULATION, HAS BEEN CONFIRMED THE DECISION THRESHOLDFOR NM DIAGNOSIS. Performed By: #### C MREP ####[facility] Hknkfhupqq9349 [place] [address]Dr. Devin Suresh CBC AUTO DIFFon 03-04-2022 BASO # 0.1 103/ul Normal 0.0-0.1 [facility] Comment on above: Performed By: #### C BC ####[facility] Jijajwlolm9917 [place] [address]Dr. Devin Kerwin Basophils/100 WBC (Bld) 0.8 % Normal 0.2-2.0 [facility] Comment on above: Performed By: #### C BC ####[facility] Divjcdnzpt6709 [place] [address]Dr. Tishemily Kerwin EO # 0.2 103/ul Normal 0.0-0.7 [facility] Comment on above: Performed By: #### C BC ####[facility] Bwxlbgnkmp[address] [place], [place] [address]Dr. Devin Suresh Eosinophils/100 WBC (Bld) 2.0 % Normal 0.9-7.0 [facility] Comment on above: Performed By: #### C BC ####[facility] Genvmgtrex24[address] [place], [place] [address]Dr. Tishemily Kerwin Erythrocyte distribution width (RBC) [Ratio] 13.1 % Normal 11.0-15.0 [facility] Comment on above: Performed By: #### C BC ####[facility] Bkyxcoxrnc[address] [place], [place] [address]Dr. Tishemily Kerwin Hematocrit (Bld) [Volume fraction] 35.0 % Critically low 36.0-48.0 [facility] Comment on above: Performed By: #### C BC ####[facility] Psjfmfdvic69[address] [place], [place] [address]Dr. Tishemily Kerwin Hemoglobin (Bld) [Mass/Vol] 11.9 g/dL Critically low 12.0-16.0 [facility] Comment on above: Performed By: #### C BC ####[facility] Tzyymilqjr[address] [place], [place] [address]Dr. Devin Suresh IG # 0.05 10e3/ul Critically high 0.00-0.03 [facility] Comment on above: Performed By: #### C BC ####[facility] Ieypxjxmfy[address] [place], [place] [address]Dr. Devin Suresh IG % 0.5 % Normal 0.0-0.5 [facility] Comment on above: Performed By: #### C BC ####[facility] Xwmolldraf5454 [place] [address]DrMaris Suresh LYMPH # 3.4 103/ul Normal 1.2-3.8 [facility] Comment on above: Performed By: #### C BC ####[facility] Xjzhmnwhrc7590 [place] [address]DrMaris Suresh Lymphocytes/100 WBC (Bld) 34.2 % Normal 20.5-60.0 [facility] Comment on above: Performed By: #### C BC ####[facility] Wdejnvwhbl3[address] [place], [place] [address]DrMaris Suresh MANUAL DIFF REQ NO Normal [facility] Comment on above: Performed By: #### C BC ####[facility] Uvfhntwhsw8338 [place] [address]Dr. Devin Suresh MCH (RBC) [Entitic mass] 30.6 pg Normal 26.7-34.0 [facility] Comment on above: Performed By: #### C BC ####[facility] Qgsysnflnf84[address] [place], [place] [address]Dr. Devin Suresh MCHC (RBC) [Mass/Vol] 34.0 g/dL Normal 29.9-35.2 [facility] Comment on above: Performed By: #### C BC ####[facility] Gcacokatoo[address] [place], [place] [address]DrMaris Suresh MCV (RBC) [Entitic vol] 90.0 fL Normal 81.0-99.0 [facility] Comment on above: Performed By: #### C BC ####[facility] Tzuoudnncx7[address] [place], [place] [address]DrMaris Suresh MONO # 0.7 103/ul Normal 0.3-0.8 [facility] Comment on above: Performed By: #### C BC ####[facility] Qiimbntddc0614[address] [place], [place] [address]DrMaris Suresh Monocytes/100 WBC (Bld) 6.6 % Normal 1.7-12.0 [facility] Comment on above: Performed By: #### C BC ####[facility] Hovbfbwsvb2641 [place] [address]Dr. Devin Suresh NEUT # 5.6 103/ul Normal 1.4-6.5 [facility] Comment on above: Performed By: #### C BC ####[facility] Mjdgtgpuft8784 [place] [address]Dr. Devin Suresh Neutrophils/100 WBC (Bld) 55.9 % Normal 43.0-75.0 [facility] Comment on above: Performed By: #### C BC ####[facility] Kztnghrvbu[address] [place], [place] [address]Dr. Devin Suresh Platelet mean volume (Bld) [Entitic vol] 9.1 fL Critically low 9.5-13.5 [facility] Comment on above: Performed By: #### C BC ####[facility] Bbbgxxrtsj[address] [place], [place] [address]Dr. Devin Suresh PLT 334 103/ul Normal 150-450 [facility] Comment on above: Performed By: #### C BC ####[facility] Ketehzmpoi[address] [place], [place] [address]Dr. Devin Suresh RBC 3.89 106/ul Critically low 4.20-5.40 [facility] Comment on above: Performed By: #### C BC ####[facility] Fisvzwpfyh[address] [place], [place] [address]Dr. Devin Suresh WBC 10.0 103/ul Normal 4.0-11.0 [facility] Comment on above: Performed By: #### C BC ####[facility] Tvugigycvq[address] [place], [place] [address]Dr. Devin Suresh CT LSPINE WO CONon CT LSPINE WO CON Normal [facility] Covid-19 PCR (CVDTB)on 02-22 SARS-CoV-2 (COVID-19) RNA EBONIE+probe Ql (Unsp spec) Not detected Normal NOT DETECTED [facility] Comment on above: Result Comment: When [...] for this test is supported by the [employer] of Health and Human Service's declaration that [...] be used). Performed By: #### C VDTB ####[facility] Jmrcexkniq0877 [place] [phone]. Devin Suresh LIPID PROFILEon 03-04-2022 CHOL-HDL RATIO NORM SEE BELOW Normal [facility] Comment on above: Result Comment: 3.3 - 4.4 LOW RISK 4.4 - 7.1 AVERAGE RISK 7.1 - 11.0 MODERATE RISK >11.0 HIGH RISK Performed By: #### L IPID, TSH ####[facility] Ozaoezsway9[address] [place], [place] [address]Bt. Devin Suresh Cholesterol [Mass/Vol] 231 mg/dL Critically high <=200 [facility] Comment on above: Performed By: #### L IPID, TSH ####[facility] Bqxaypvviq2934 [place], [place] [address]Yw. Devin Suresh Cholesterol in HDL [Mass/Vol] 52 mg/dL Normal 40-60 [facility] Comment on above: Performed By: #### L IPID, TSH ####[facility] Ctiwjlvjut9796 [place], [place] [address]Zc. Devin Suresh Cholesterol in LDL [Mass/Vol] 156.6 mg/dL Normal [facility] Comment on above: Performed By: #### L IPID, TSH ####[facility] Umfuvqqzou6244 [place] [address]Dr. Tishemily Suresh Cholesterol.total/Cho lesterol in HDL [Mass ratio] 4.4 {ratio} Normal [facility] Comment on above: Performed By: #### L IPID, TSH ####[facility] Csildxzgaz6462 [place] [address]Dr. Devin Suresh HDL NORMAL > or = 60 mg/dl - LO W CARDIOVASCULAR RISK <40 mg/dl - HIGH CARDIOVASCULAR RISK Normal [facility] Comment on above: Performed By: #### L IPID, TSH ####[facility] Dkikuygmym9877 [place] [address]Dr. Devin Suresh LDL CALC NORMAL SEE BELOW Normal [facility] Comment on above: Result Comment: <100 mg/dl OPTIMAL 100 - 129 mg/dl NEAR OR ABOVE OPTIMAL 130 - 159 mg/dl BORDERLINE HIGH 160 - 189 mg/dl HIGH >190 mg/dl VERY HIGH Performed By: #### L IPID, TSH ####[facility] Crczvoibwv3750 [place] [address]Dr. Devin Suresh Triglyceride [Mass/Vol] 112 mg/dL Normal <=150 [facility] Comment on above: Performed By: #### L IPID, TSH ####[facility] Onvcqtxupw9839 [place] [address]Dr. Devin Suresh VLDL CALC 22.4 mg/dL Normal [facility] Comment on above: Performed By: #### L IPID, TSH ####[facility] Vdwmdswxic8760 [place] [address]Dr. Devin Suresh POINT OF CARE GLUCOSEon 10- Glucose [Mass/Vol] 295 mg/dL Critically high 74-106 [facility] Comment on above: Performed By: #### P OCGLUC ####[facility] Bjfocnnyqz9079 [place] [address]Dr. Devin Suresh Glucose [Mass/Vol] 157 mg/dL Critically high 74-106 [facility] Comment on above: Performed By: #### P OCGLUC ####[facility] Xbcaghsyhw1819 [place] [address]Dr. Devin Suresh Glucose [Mass/Vol] 172 mg/dL Critically high 74-106 [facility] Comment on above: Performed By: #### P OCGLUC ####[facility] Vwmdowqewi3337 [place] [address]Dr. Devin Suresh Glucose [Mass/Vol] 178 mg/dL Critically high 74-106 [facility] Comment on above: Performed By: #### P OCGLUC ####[facility] Grqkoasezv3876 [place] [address]Dr. Devin Suresh Glucose [Mass/Vol] 241 mg/dL Critically high 74-106 [facility] Comment on above: Performed By: #### P OCGLUC ####[facility] Xbcpopdklx3907 [place] [address]Dr. Devin Kerwin PROF 14(COMP METB)on 022 Albumin [Mass/Vol] 3.1 g/dL Critically low 3.4-5.0 [facility] Comment on above: Performed By: #### C MP ####[facility] Dtlitpefbg3987 [place] [address]Dr. Devin Kerwin Albumin/Globulin [Mass ratio] 0.9 {ratio} Normal [facility] Comment on above: Performed By: #### C MP ####[facility] Atwlubogea6020 [place] [address]Dr. Devin Kerwin ALP [Catalytic activity/Vol] 114 U/L Normal 46-116 [facility] Comment on above: Performed By: #### C MP ####[facility] Mmssyugtaq4326 [place] [address]Dr. Devin Kerwin ALT [Catalytic activity/Vol] 9 U/L Critically low 14-59 [facility] Comment on above: Performed By: #### C MP ####[facility] Hkesmbaqat4900 [place] [address]Dr. Devin Kerwin Anion gap [Moles/Vol] 12.3 mmol/L Normal [facility] Comment on above: Performed By: #### C MP ####[facility] Nekxrlqgtw3916 [place] [address]Dr. Devin Suresh AST [Catalytic activity/Vol] 7 U/L Critically low 15-37 [facility] Comment on above: Performed By: #### C MP ####[facility] Wpwuweezyy9272 [place] [address]Dr. Devin Suresh Bilirubin [Mass/Vol] 0.4 mg/dL Normal 0.2-1.0 [facility] Comment on above: Performed By: #### C MP ####[facility] Turnjtbscs6098 [place] [address]Dr. Devin Suresh Calcium [Mass/Vol] 8.3 mg/dL Critically low 8.5-10.1 Th e [facility] Comment on above: Performed By: #### C MP ####[facility] Bncxkwbhko3995 [place] [address]Dr. Devin Suresh Chloride [Moles/Vol] 103 mmol/L Normal 98-107 [facility] Comment on above: Performed By: #### C MP ####[facility] Qepyleqnqv7457 [place] [address]Dr. Devin Suresh CO2 [Moles/Vol] 27.2 mmol/L Normal 21.0-32.0 [facility] Comment on above: Performed By: #### C MP ####[facility] Xwuieuzbag0965 [place] [address]Dr. Devin Suresh Creatinine [Mass/Vol] 0.95 mg/dL Normal 0.55-1.02 [facility] Comment on above: Performed By: #### C MP ####[facility] Anqolayeoo6579 [place] [address]Dr. Devin Suresh EGFR-AF CONGOLESE >60 Normal >=60 [facility] Comment on above: Performed By: #### C MP ####[facility] Txgpnnvqwn2926 [place] [address]Dr. Devin Kerwin EGFR-NON AF CONGOLESE >60 Normal >=60 [facility] Comment on above: Performed By: #### C MP ####[facility] Nfivrejraf0338 [place] [address]Dr. Yiemily Suresh Globulin (S) [Mass/Vol] 3.3 g/dL Normal [facility] Comment on above: Performed By: #### C MP ####[facility] Xajykbdncz5468 [place] [address]Dr. Devin Suresh Glucose [Mass/Vol] 186 mg/dL Critically high 74-106 [facility] Comment on above: Performed By: #### C MP ####[facility] Mskvwkbqsn6031 [place] [address]Dr. Devin Suresh Potassium [Moles/Vol] 3.5 mmol/L Normal 3.5-5.1 [facility] Comment on above: Performed By: #### C MP ####[facility] Xnfnkjiuhs[address] [place], [place] [address]Dr. Devin Suresh Protein [Mass/Vol] 6.4 g/dL Normal 6.4-8.2 [facility] Comment on above: Performed By: #### C MP ####[facility] Cwlcaziwlh[address] [place], [place] [address]Dr. Devin Suresh Sodium [Moles/Vol] 139 mmol/L Normal 136-145 [facility] Comment on above: Performed By: #### C MP ####[facility] Hkwguzqdjl[address] [place], [place] [address]Dr. Devin Suresh Urea nitrogen [Mass/Vol] 22.0 mg/dL Critically high 7.0-18.0 [facility] Comment on above: Performed By: #### C MP ####[facility] Ihoucpncqj[address] [place], [place] [address]Dr. Devin Suresh Urea nitrogen/Creatinine [Mass ratio] 23.2 mg/mg Normal [facility] Comment on above: Performed By: #### C MP ####[facility] Matbalzexp[address] [place], [place] [address]Dr. Devin Suresh TSHon 03-04-2022 TSH 4.081 uIU/mL Critically high 0.358-3.740 [facility] Comment on above: Performed By: #### L IPID, TSH ####[facility] Skdvufvbnn24[address] [place], [place] [address]Dr. Devin Suresh CARDIAC LAURA ADMITon 022 CK [Catalytic activity/Vol] 58 U/L Normal 26-192 [facility] Comment on above: Performed By: #### ALEXIA LARKIN ####[facility] Ueiqxorvrc[address] [place] [phone]. Devin Suresh CK.MB [Mass/Vol] 0.80 ng/mL Normal <=3.60 [facility] Comment on above: Performed By: #### ALEXIA LARKIN ####[facility] Djvxsjfitl264[address] [place] [address]Dr. Devin Suresh HSTROP 7.9 pg/mL Normal 4.0-51.3 [facility] Comment on above: Result Comment: CUT- OFF POINTS HAVE BEEN ESTABLISHED BASED ON THE FOURTH UNIVERSAL DEFINITIONS OF MYOCARDIALINFARCTION. THE UPPER REFERENCE LIMIT (URL) OF TROPONIN, DEFINED THE 99TH PERCENTILE OFcTnI DISTRIBUTION IN A REFERENCE POPULATION, HAS BEEN CONFIRMED THE DECISION THRESHOLDFOR NM DIAGNOSIS. Performed By: #### ALEXIA LARKIN ####[facility] Eektgqkvan[address] [place] [address]Dr. Devin Suresh MELANIE 48 ng/mL Normal 9-82 [facility] Comment on above: Performed By: #### ALEXIA LARKIN ####[facility] Rfztqrlqfz7850 [place] [phone]. Devin Suresh CBC AUTO DIFFon 03-03-2022 BASO # 0.1 103/ul Normal 0.0-0.1 [facility] Comment on above: Performed By: #### C BC ####[facility] Lsnsbxlyta2673 [place] [phone]. Devin Kerwin Basophils/100 WBC (Bld) 0.8 % Normal 0.2-2.0 [facility] Comment on above: Performed By: #### C BC ####[facility] Ranlhsonsv39[address] [place] [address]Dr. Devin Kerwin EO # 0.1 103/ul Normal 0.0-0.7 [facility] Comment on above: Performed By: #### C BC ####[facility] Wvpjssyqgn7906 [place] [phone]. Devin Suresh Eosinophils/100 WBC (Bld) 1.1 % Normal 0.9-7.0 [facility] Comment on above: Performed By: #### C BC ####[facility] Mdreyopbci9[address] [place] [address]Dr. Devin Suresh Erythrocyte distribution width (RBC) [Ratio] 12.9 % Normal 11.0-15.0 [facility] Comment on above: Performed By: #### C BC ####[facility] Ncaivuozcc[address] [place], [place] [address]Dr. Devin Suresh Hematocrit (Bld) [Volume fraction] 37.6 % Normal 36.0-48.0 [facility] Comment on above: Performed By: #### C BC ####[facility] Domtlofqzs50[address] [place], [place] [address]Dr. Devin Suresh Hemoglobin (Bld) [Mass/Vol] 12.9 g/dL Normal 12.0-16.0 [facility] Comment on above: Performed By: #### C BC ####[facility] Xikasotyzr48[address] [place] [address]Dr. Devin Suresh IG # 0.06 10e3/ul Critically high 0.00-0.03 [facility] Comment on above: Performed By: #### C BC ####[facility] Fwvrdfzocc7103 [place] [address]Dr. Devin Suresh IG % 0.6 % Critically high 0.0-0.5 [facility] Comment on above: Performed By: #### C BC ####[facility] Bettkwchvh0342 [place] [address]Dr. Devin Suresh LYMPH # 2.4 103/ul Normal 1.2-3.8 [facility] Comment on above: Performed By: #### C BC ####[facility] Icxqtlctsq[address] [place], [place] [address]Dr. Devin Suresh Lymphocytes/100 WBC (Bld) 22.2 % Normal 20.5-60.0 [facility] Comment on above: Performed By: #### C BC ####[facility] Rgejplbaif5811 [place] [phone]. Devin Suresh MANUAL DIFF REQ NO Normal [facility] Comment on above: Performed By: #### C BC ####[facility] Omloouzhng4526 [place] [phone]. Devin Suresh MCH (RBC) [Entitic mass] 30.7 pg Normal 26.7-34.0 [facility] Comment on above: Performed By: #### C BC ####[facility] Xtzbxngssi[address] [place], [place] [address]Dr. Devin Suresh MCHC (RBC) [Mass/Vol] 34.3 g/dL Normal 29.9-35.2 [facility] Comment on above: Performed By: #### C BC ####[facility] Divzjncsie4433[address] [place], [place] [address]Dr. Devin Suresh MCV (RBC) [Entitic vol] 89.5 fL Normal 81.0-99.0 [facility] Comment on above: Performed By: #### C BC ####[facility] Aepykcdeag4804 [place] [phone]. Devin Suresh MONO # 0.6 103/ul Normal 0.3-0.8 [facility] Comment on above: Performed By: #### C BC ####[facility] Nlxzpkposh6307 [place] [phone]. Devin Kerwin Monocytes/100 WBC (Bld) 5.3 % Normal 1.7-12.0 [facility] Comment on above: Performed By: #### C BC ####[facility] Wpnkhhfjpx2404 [place] [phone]. Devin Suresh NEUT # 7.4 103/ul Critically high 1.4-6.5 [facility] Comment on above: Performed By: #### C BC ####[facility] Luvxgcxaao[address] [place], [place] [address]Dr. Devin Kerwin Neutrophils/100 WBC (Bld) 70.0 % Normal 43.0-75.0 [facility] Comment on above: Performed By: #### C BC ####[facility] Xizlmqoraj1821 [place] [phone]. Devin Suresh Platelet mean volume (Bld) [Entitic vol] 9.6 fL Normal 9.5-13.5 [facility] Comment on above: Performed By: #### C BC ####[facility] Muevseujxi6849 [place] [phone]. Devin Suresh PLT 382 103/ul Normal 150-450 [facility] Comment on above: Performed By: #### C BC ####[facility] Pblvrvcouj1962 [place] [phone]. Devin Suresh RBC 4.20 106/ul Normal 4.20-5.40 [facility] Comment on above: Performed By: #### C BC ####[facility] Vgkyxldykt9238 [place] [phone]. Devin Suresh WBC 10.6 103/ul Normal 4.0-11.0 [facility] Comment on above: Performed By: #### C BC ####[facility] Htvrzsduup7228 [place] [phone]. Devin Suresh CT STROKE HEAD WOon 03-03-[address] STROKE HEAD WO Normal [facility] POINT OF CARE GLUCOSEon 02-22 Glucose [Mass/Vol] 453 mg/dL Critically high 74-106 [facility] Comment on above: Performed By: #### P OCGLUC ####[facility] Gxqgtzssqd3744 [place] [phone] Suresh PROF CHEM 8 (BAS METB)on Anion gap [Moles/Vol] 11.1 mmol/L Normal [facility] Comment on above: Performed By: #### C CITLALLI, BMP ####[facility] Afnbgkqvnl8825 [place] [phone] Suresh Calcium [Mass/Vol] 8.6 mg/dL Normal 8.5-10.1 [facility] Comment on above: Performed By: #### C CITLALLI, BMP ####[facility] Whmlxjirfv4487 [place] [phone]. Devin Suresh Chloride [Moles/Vol] 98 mmol/L Normal 98-107 [facility] Comment on above: Performed By: #### Isabell LENNON, BMP ####[facility] Zomnqcamoi8755 [place] [address]Dr. Devin Suresh CO2 [Moles/Vol] 29.0 mmol/L Normal 21.0-32.0 [facility] Comment on above: Performed By: #### Isabell LENNON, BMP ####[facility] Cyggbjpttr5857 [place] [address]Dr. Devin Suresh Creatinine [Mass/Vol] 1.16 mg/dL Critically high 0.55-1.02 [facility] Comment on above: Performed By: #### Isabell LENNON, BMP ####[facility] Dkhoubqgzt37[address] [place], [place] [address]Dr. Devin Suresh EGFR-AF CONGOLESE >60 Normal >=60 [facility] Comment on above: Performed By: #### Isabell LENNON, BMP ####[facility] Dqvkcflyss08[address] [place], [place] [address]Dr. Devin Suresh EGFR-NON AF CONGOLESE 51 mL/min/1.73m2 Critically low >=60 [facility] Comment on above: Performed By: #### Isabell LENNON, BMP ####[facility] Hpymgmhknz[address] [place], [place] [address]Dr. Devin Suresh Glucose [Mass/Vol] 428 mg/dL Critically high 74-106 [facility] Comment on above: Performed By: #### Isabell LENNON, BMP ####[facility] Psysiabful0812 [place] [address]Dr. Devin Suresh Potassium [Moles/Vol] 4.1 mmol/L Normal 3.5-5.1 [facility] Comment on above: Performed By: #### Isabell LENNON, BMP ####[facility] Rblksmykhv6605 [place] [address]Dr. Devin Suresh Sodium [Moles/Vol] 134 mmol/L Critically low 136-145 [facility] Comment on above: Performed By: #### Isabell LENNON, BMP ####[facility] Rdcsmdbtbv6086 [place], [place] [address]Ke. Devin Suresh Urea nitrogen [Mass/Vol] 23.0 mg/dL Critically high 7.0-18.0 [facility] Comment on above: Performed By: #### C CITLALLI, BMP ####[facility] Ltwraqtckz4089 [place], [place] [address]Gl. Devin Suresh Urea nitrogen/Creatinine [Mass ratio] 19.8 mg/mg Normal [facility] Comment on above: Performed By: #### C CITLALLI, BMP ####[facility] Cqxxirtxvb5062 [place], [place] [address]Ms. Devin Suresh XR CHEST 1 Von 03-03-2022 XR CHEST 1 V Normal [facility] CHEMISTRYOrdered By: SYSTEM SYSTEM on 02-27-2022 Troponin [...] rate/Area] mL/min/1.73 m2 Normal >=59mL/min/ 1.73 m2 [facility] S GFR/1.73 sq M.predicted among non-blacks MDRD (S/P/Bld) [Vol rate/Area] mL/min/1.73 m2 Normal >=59mL/min/ 1.73 m2 [facility] S Glucose [Mass/Vol] 310 mg/dL High [...] 9.5 E9/L Normal 4.0 - 11.0 E9/L [facility] HemeAutoSS CULTURE URINEon 02-20-2022 CULTURE URINE Normal [facility] Comment on above: Performed By: #### U RCX ####[facility] Figvvsosqr4490 [place] [phone]. Devin Suresh ACETONE SERUMon 02-18-2022 ACETONE Negative Normal NEGATIVE [facility] Comment on above: Performed By: #### A CETON ####[facility] Xuiqiieovm2368 [place], [place] [address]Ji. Devin Suresh CBC AUTO DIFFon 02-18-2022 BASO # 0.0 103/ul Normal 0.0-0.1 [facility] Comment on above: Performed By: #### C BC ####[facility] Znpzyngyck0307 [place] [phone]. Devin Suresh Basophils/100 WBC (Bld) 0.4 % Normal 0.2-2.0 [facility] Comment on above: Performed By: #### C BC ####[facility] Jdguadzurz4964 [place] [address]Dr. Devin Suresh EO # 0.1 103/ul Normal 0.0-0.7 [facility] Comment on above: Performed By: #### C BC ####[facility] Idtlrszpas0319 [place] [address]Dr. Devin Suresh Eosinophils/100 WBC (Bld) 1.0 % Normal 0.9-7.0 [facility] Comment on above: Performed By: #### C BC ####[facility] Xamcdmiouz8289 [place] [address]Dr. Devin Kerwin Erythrocyte distribution width (RBC) [Ratio] 12.3 % Normal 11.0-15.0 [facility] Comment on above: Performed By: #### C BC ####[facility] Ooairujgpe[address] [place], [place] [address]Dr. Devin Suresh Hematocrit (Bld) [Volume fraction] 34.4 % Critically low 36.0-48.0 [facility] Comment on above: Performed By: #### C BC ####[facility] Vmvawfebhf26[address] [place], [place] [address]Dr. Devin Suresh Hemoglobin (Bld) [Mass/Vol] 11.7 g/dL Critically low 12.0-16.0 [facility] Comment on above: Performed By: #### C BC ####[facility] Olvxjefacv2[address] [place], [place] [address]DrMaris Tishemily Suresh IG # 0.09 10e3/ul Critically high 0.00-0.03 [facility] Comment on above: Performed By: #### C BC ####[facility] Ponqomtqqg[address] [place], [place] [address]Dr. Tishemily Suresh IG % 0.9 % Critically high 0.0-0.5 [facility] Comment on above: Performed By: #### C BC ####[facility] Yfaetufeev26[address] [place], [place] [address]DrMaris Suresh LYMPH # 2.0 103/ul Normal 1.2-3.8 [facility] Comment on above: Performed By: #### C BC ####[facility] Pbwphzugrs6332 [place] [address]Dr. Devin Suresh Lymphocytes/100 WBC (Bld) 19.8 % Critically low 20.5-60.0 [facility] Comment on above: Performed By: #### C BC ####[facility] Qjytwufvia7969 [place] [address]DrMaris Suresh MANUAL DIFF REQ NO Normal [facility] Comment on above: Performed By: #### C BC ####[facility] Rjkcpsknxx9758 [place] [address]Dr. Devin Suresh MCH (RBC) [Entitic mass] 30.2 pg Normal 26.7-34.0 [facility] Comment on above: Performed By: #### C BC ####[facility] Vgrrkhlkme4[address] [place], [place] [address]Dr. Devin Suresh MCHC (RBC) [Mass/Vol] 34.0 g/dL Normal 29.9-35.2 [facility] Comment on above: Performed By: #### C BC ####[facility] Hqpllwcwbm78[address] [place], [place] [address]DrMaris Suresh MCV (RBC) [Entitic vol] 88.9 fL Normal 81.0-99.0 [facility] Comment on above: Performed By: #### C BC ####[facility] Swwqhbxvet77[address] [place], [place] [address]Dr. Devin Suresh MONO # 0.6 103/ul Normal 0.3-0.8 [facility] Comment on above: Performed By: #### C BC ####[facility] Ajxxqbhojn3[address] [place], [place] [address]Dr. Devin Suresh Monocytes/100 WBC (Bld) 6.4 % Normal 1.7-12.0 [facility] Comment on above: Performed By: #### C BC ####[facility] Rriohuyfdc9[address] [place], [place] [address]DrMaris Suresh NEUT # 7.0 103/ul Critically high 1.4-6.5 [facility] Comment on above: Performed By: #### C BC ####[facility] Wonfiyjecy5737 [place] [address]Dr. Devin Suresh Neutrophils/100 WBC (Bld) 71.5 % Normal 43.0-75.0 [facility] Comment on above: Performed By: #### C BC ####[facility] Snkosrgeno9376 [place] [address]Dr. Devin Suresh Platelet mean volume (Bld) [Entitic vol] 8.4 fL Critically low 9.5-13.5 [facility] Comment on above: Performed By: #### C BC ####[facility] Grdylfagvo6986 [place] [address]Dr. Devin Suresh PLT 333 103/ul Normal 150-450 [facility] Comment on above: Performed By: #### C BC ####[facility] Qngocrrcjz3535 [place] [address]Dr. Devin Suresh RBC 3.87 106/ul Critically low 4.20-5.40 [facility] Comment on above: Performed By: #### C BC ####[facility] Bygbnlnkul3507 [place] [address]Dr. Devin Suresh WBC 9.8 103/ul Normal 4.0-11.0 [facility] Comment on above: Performed By: #### C BC ####[facility] Hcorjoavgi4001 [place] [address]Dr. Devin S[address]h CT HEAD WO CONon 02-18-2022 CT HEAD WO CON Normal The [facility] DEPAKENE/VALPROICon 02-19-20 22 DEPAKENE <3.0 Critically low 50.0-100.0 [facility] Comment on above: Performed By: #### C MP, VALP, HSTROPN ####[facility] Uiryqlbbid5041 [place] [address]Dr. Devin Suresh ER URINE PROFILEon 2 Bilirubin Ql (U) Negative Normal NEGATIVE [facility] Comment on above: Performed By: #### U MICRO, ERUR ####[facility] Kwxwazkbnd1006 [place] [address]Dr. Devin Suresh Clarity (U) CLEAR Normal CLEAR [facility] Comment on above: Performed By: #### U MICRO, ERUR ####[facility] Ankrweeauv13[address] [place], [place] [address]Dr. Devin Surseh Color (U) LT. YELLOW Normal YELLOW [facility] Comment on above: Performed By: #### U MICRO, ERUR ####[facility] Rxtejbioqn75[address] [place], [place] [address]Dr. Devin Suresh ERUAHD A micrscopic examina tion will be performed if indicated. Normal [facility] Comment on above: Performed By: #### U MICRO, ERUR ####[facility] Etczxgqqbb5[address] [place], [place] [address]Dr. Devin Suresh Glucose Ql (U) >1000 Abnormal NEGATIVE [facility] Comment on above: Performed By: #### U MICRO, ERUR ####[facility] Rziptpmaxe[address] [place], [place] [address]Dr. Devin Suresh Hemoglobin Ql (U) SMALL Abnormal NEGATIVE [facility] Comment on above: Performed By: #### U MICRO, ERUR ####[facility] Ytxpbagzel[address] [place], [place] [address]Dr. Devin Suresh Ketones Ql (U) 40 mg/dl Abnormal NEGATIVE [facility] Comment on above: Performed By: #### U MICRO, ERUR ####[facility] Cakptmvrhd15[address] [place], [place] [address]Dr. Devin Suresh LEUKOCYTES TRACE Abnormal NEGATIVE [facility] Comment on above: Performed By: #### U MICRO, ERUR ####[facility] Ggfxrrqxbr01[address] [place], [place] [address]Dr. Devin Suresh Nitrite Ql (U) Positive Abnormal NEGATIVE [facility] Comment on above: Performed By: #### U MICRO, ERUR ####[facility] Vxadfhecca59[address] [place], [place] [address]Dr. Devin Suresh pH (U) 7.0 [pH] Normal 5-9 [facility] Comment on above: Performed By: #### U MICRO, ERUR ####[facility] Ibzgxokxny8264 [place] [address]Dr. Devin Suresh Protein (U) [Mass/Vol] 100 mg/dL Abnormal NEGATIVE/ TRACE [facility] Comment on above: Performed By: #### U MICRO, ERUR ####[facility] Mwphjcvoal4120 [place] [address]Dr. Devin Suresh SPEC GRAVITY 1.020 Normal 1.005-<=1.[address] [place] [address] Comment on above: Performed By: #### U MICRO, ERUR ####[facility] Haqyhnpdrw[address] [place], [place] [address]Dr. Devin Suresh UR MICRO IND INDICATED Normal [facility] Comment on above: Performed By: #### U MICRO, ERUR ####[facility] Ubhhrgtrxr10[address] [place], [place] [address]Dr. Devin Suresh Urobilinogen Qn (U) 1.0 {Sheyla'U}/dL Normal 0.2 - 1. 0 [facility] Comment on above: Performed By: #### U MICRO, ERUR ####[facility] Ecpewgsdhl[address] [place], [place] [address]Dr. Devin Suresh LACTATE/LACTIC ACIDon 2021 Lactate [Moles/Vol] 0.9 mmol/L Normal 0.4-1.9 [facility] Comment on above: Performed By: #### L ACT ####[facility] Egldxnexgq[address] [place], [place] [address]Dr. Devin Suresh POINT OF CARE GLUCOSEon 01-24 Glucose [Mass/Vol] 346 mg/dL Critically high 74-106 [facility] Comment on above: Performed By: #### P OCGLUC ####[facility] Hdgdivmjnt[address] [place], [place] [address]Dr. Devin Suresh Glucose [Mass/Vol] 272 mg/dL Critically high 74-106 [facility] Comment on above: Performed By: #### P OCGLUC ####[facility] Uiuevookls0[address] [place], [place] [address]Dr. Devin Suresh PROF 14(COMP METB)on 022 Albumin [Mass/Vol] 3.3 g/dL Critically low 3.4-5.0 [facility] Comment on above: Performed By: #### C MP, VALP, HSTROPN ####[facility] Eqwvmdtpzb6347 [place] [address]Dr. Devin Suresh Albumin/Globulin [Mass ratio] 0.9 {ratio} Normal [facility] Comment on above: Performed By: #### C MP, VALP, HSTROPN ####[facility] Owamwgiwbt5007 [place] [address]Dr. Devin Suresh ALP [Catalytic activity/Vol] 130 U/L Critically high 46-116 [facility] Comment on above: Performed By: #### C MP, VALP, HSTROPN ####[facility] Qpymgtiedm3978 [place] [address]Dr. Devin Suresh ALT [Catalytic activity/Vol] 22 U/L Normal 14-59 [facility] Comment on above: Performed By: #### C MP, VALP, HSTROPN ####[facility] Poewzvisuc9405 [place] [address]Dr. Devin Suresh Anion gap [Moles/Vol] 10.9 mmol/L Normal [facility] Comment on above: Performed By: #### C MP, VALP, HSTROPN ####[facility] Rtwtooieum8889 [place] [address]Dr. Devin Suresh AST [Catalytic activity/Vol] 11 U/L Critically low 15-37 [facility] Comment on above: Performed By: #### C MP, VALP, HSTROPN ####[facility] Qrrhxvqfxk7476 [place] [address]Dr. Devin Suresh Bilirubin [Mass/Vol] 0.9 mg/dL Normal 0.2-1.0 [facility] Comment on above: Performed By: #### C MP, VALP, HSTROPN ####[facility] Pncxsqoiwi7522 [place] [address]Dr. Devin Suresh Calcium [Mass/Vol] 8.7 mg/dL Normal 8.5-10.1 [facility] Comment on above: Performed By: #### C MP, VALP, HSTROPN ####[facility] Xpeibygyas9078 [place] [address]Dr. Devin Suresh Chloride [Moles/Vol] 100 mmol/L Normal 98-107 [facility] Comment on above: Performed By: #### C MP, VALP, HSTROPN ####[facility] Qzlzvxivvz3630 [place] [address]Dr. Devin Suresh CO2 [Moles/Vol] 29.4 mmol/L Normal 21.0-32.0 [facility] Comment on above: Performed By: #### C MP, VALP, HSTROPN ####[facility] Ybkcgryrjq1073 [place] [address]Dr. Devin Suresh Creatinine [Mass/Vol] 0.87 mg/dL Normal 0.55-1.02 [facility] Comment on above: Performed By: #### C MP, VALP, HSTROPN ####[facility] Ucpfgjkuxd4[address] [place], [place] [address]Dr. Devin Suresh EGFR-AF CONGOLESE >60 Normal >=60 [facility] Comment on above: Performed By: #### C MP, VALP, HSTROPN ####[facility] Tykpaiwguq5[address] [place], [place] [address]Dr. Devin Suresh EGFR-NON AF CONGOLESE >60 Normal >=60 [facility] Comment on above: Performed By: #### C MP, VALP, HSTROPN ####[facility] Gmzivizkxv9499 [place] [address]Dr. Devin Suresh Globulin (S) [Mass/Vol] 3.8 g/dL Normal [facility] Comment on above: Performed By: #### C MP, VALP, HSTROPN ####[facility] Xuwuhfiano4987 [place] [address]Dr. Devin Suresh Glucose [Mass/Vol] 282 mg/dL Critically high 74-106 [facility] Comment on above: Performed By: #### C MP, VALP, HSTROPN ####[facility] [facility] Blnbubxffs[address] [place] [address]Dr. Devin Suresh Potassium [Moles/Vol] 3.3 mmol/L Critically low 3.5-5.1 [facility] Comment on above: Performed By: #### C MP, VALP, HSTROPN ####[facility] Sffzxyzily[address] [place] [address]Dr. Devin Suresh Protein [Mass/Vol] 7.1 g/dL Normal 6.4-8.2 The [facility] Comment on above: Performed By: #### C MP, VALP, HSTROPN ####[facility] Unfaqlsolw[address] [place], [place] [address]Dr. Devin Suresh Sodium [Moles/Vol] 137 mmol/L Normal 136-145 The [facility] Comment on above: Performed By: #### C MP, VALP, HSTROPN ####[facility] Cutuzhhtjm[address] [place] [address]Dr. Devin Suresh Urea nitrogen [Mass/Vol] 14.0 mg/dL Normal 7.0-18.0 [facility] Comment on above: Performed By: #### C MP, VALP, HSTROPN ####[facility] Wakzim[address] [place] [address]Dr. Devin Suresh Urea nitrogen/Creatinine [Mass ratio] 16.1 mg/mg Normal [facility] Comment on above: Performed By: #### C MP, VALP, HSTROPN ####[facility] Ptdnumjgky[address] [place], [place] [address]Dr. Devin Suresh TROPONIN, HIGH SENSITIVITYon 02-18-2022 HSTROP 11.4 pg/mL Normal 4.0-51.3 [facility] Comment on above: Result Comment: CUT- OFF POINTS HAVE BEEN ESTABLISHED BASED ON THE FOURTH UNIVERSAL DEFINITIONS OF MYOCARDIALINFARCTION. THE UPPER REFERENCE LIMIT (URL) OF TROPONIN, DEFINED THE 99TH PERCENTILE OFcTnI DISTRIBUTION IN A REFERENCE POPULATION, HAS BEEN CONFIRMED THE DECISION THRESHOLDFOR NM DIAGNOSIS. Performed By: #### C MP, VALP, HSTROPN ####[facility] Votltitkgh[address] [place] [address]Dr. Devin Suresh URINE MICROSCOPIC ONLYon BACTERIA MODERATE Abnormal NONE SEEN [facility] Comment on above: Performed By: #### U MICRO, ERUR ####[facility] Pq[address]ne[address] [place] [address]Dr. Devin Suresh Bacteria identified Cx Nom (U) INDICATED Normal [facility] Comment on above: Performed By: #### U MICRO, ERUR ####[facility] Osqowrgpfl[address] [place] [address]Dr. Devin Suresh CAST NONE SEEN Normal NONE SEEN [facility] Comment on above: Performed By: #### U MICRO, ERUR ####[facility] Cellawgiac[address] [place] [address]Dr. Devin Suresh Crystals LM Nom (Urine sed) SEEN Abnormal NONE SEEN [facility] Comment on above: Performed By: #### U MICRO, ERUR ####[facility] Fxofczfcgi[address] [place], [place] [address]Dr. Devin Suresh Epithelial cells LM Ql (Urine sed) FEW Abnormal NONE SEEN /RARE [facility] Comment on above: Performed By: #### U MICRO, ERUR ####[facility] Pinuhsbblk[address] [place] [address]Dr. Devin Suresh MUCOUS NONE SEEN Normal NONE SEEN [facility] Comment on above: Performed By: #### U MICRO, ERUR ####[facility] Atqfq[address]duuf[address] [place], [place] [address]Dr. Devin Suresh RBC 2-5 Abnormal 0-2 [facility] Comment on above: Performed By: #### U MICRO, ERUR ####[facility] Ydiwywxqih[address] [place], [place] [address]Dr. Devin Suresh WBC (U) [#/Vol] /uL Abnormal NONE SEEN [facility] Comment on above: Performed By: #### U MICRO, ERUR ####[facility] Jdouacarsu[address] [place], [place] [address]DrMaris Suresh XR CHEST 1 Von 02-18-2022 XR CHEST 1 V Normal [facility] CT HEAD WO CONon 02-06-2022 CT HEAD WO CON Normal The [facility] CHEMISTRYOrdered By: Lab ROP User on 01-24-2022 Glucose [Mass/Vol] 66 mg/dL Normal 55 - 99 mg/dL [facility] [place] Subsection Comment on above: Result Comment: Peter yeh RN/ POC Device SN [id number] Invalid Interpretation Code FT POC Subsection POC User ID [id number] Invalid Interpretation Code FT POC Subsection POC [...] PM) Normal Negative [facility] UA Auto SS Powers.plasma/Lithiu m.RBC (Bld) [Mass ratio] 0-3 /HPF Normal [...] FT UA Auto SS Urobilinogen Qn (U) 0.3842675 {Sheyla'U}/dL Normal 0.0 - 1.0 EU/dL [facility] [...] rate/Area] mL/min/1.73 m2 Normal >=59mL/min/ 1.73 m2 [facility] Chem S GFR/1.73 sq M.predicted among non-blacks MDRD (S/P/Bld) [Vol rate/Area] mL/min/1.73 m2 Normal >=59mL/min/ 1.73 m2 [facility] Chem S Globulin (S) [Mass/Vol] 2.9 g/dL Normal 1.4 - 4.0 gm/dL [facility] Remisol Glucose [Mass/Vol] 137 mg/dL Normal 55 - 199 mg/dL [facility] Remisol Magnesium [Mass/Vol] 1.2 mg/dL Low 1.3 - 2 .4 mg/dL [facility] Remisol Potassium [Moles/Vol] 3.5 mmol/L Normal 3.5 - 5.3 mmol/L [facility] Remisol Protein [Mass/Vol] 6.2 g/dL Normal 6.0 - 7.8 gm/dL [facility] Remisol Sodium [Moles/Vol] 139 mmol/L Normal 135 - 145 mmol/L [facility] Remisol Troponin I.cardiac [Mass/Vol] 5.40 pg/mL Low 10.10 - 27.10 pg/mL [facility] Remisol Urea nitrogen [Mass/Vol] 13 mg/dL Normal 5 - 21 mg/dL [facility] Remisol Urea nitrogen/Creatinine [Mass ratio] 16 mg/mg Normal 10 - 20 [facility] Remisol CHEMISTRYOrdered By: Desi ROP User on 01-09-2022 Glucose [Mass/Vol] 178 mg/dL High 55 - 99 mg/dL [facility] POC Subsection POC Device SN [id number] Invalid Interpretation Code [facility] POC Subsection POC User ID [id number] Invalid Interpretation Code [facility] POC Subsection POC Username DANNIELLE HUFF Invalid Interpretation Code [facility] POC Subsection CHEMISTRYOrdered By: Shannen shipley on 01-09-2022 Natriuretic peptide B (Bld) [Mass/Vol] 17 pg/mL Normal 5 - 80 pg/mL [facility] HemeManSS COAGULATIONOrdered By: Richa Murphy on 01-09-2022 aPTT Coag (PPP) [Time] 36.7 s High 25.1 - 36.5 second(s) [facility] Auto Coag Fibrin D-dimer FEU (PPP) [Mass/Vol] 494 ng/mL FEU Normal 215 - 500 ng/mL FEU [facility] Auto Coag INR Coag (PPP) [Relative time] [...] PM) Normal Negative [facility] UA Auto SS Powers.plasma/Lithiu m.RBC (Bld) [Mass ratio] 0-3 /HPF Normal [...] FT UA Auto SS Urobilinogen Qn (U) 0.3456856 {Sheyla'U}/dL Normal 0.0 - 1.0 EU/dL [facility] UA Auto SS WBC Auto Ql (U) Negative (01/09/22 1:58 PM) Normal Negative [facility] Auto SS WBC LM.HPF (Urine sed) [#/Area] 0-5 /HPF Normal 0-5/HPF [facility] UA Auto SS CULTURE URINEon 01-04-2022 CULTURE URINE Normal The [facility] Comment on above: Performed By: #### U RCX ####[facility] [address]ieewbcgr[address] [place] [address]DrMaris Suresh CARDIAC LAURA 3-6on 2 CK [Catalytic activity/Vol] 38 U/L Normal 26-192 [facility] Comment on above: Performed By: #### C MREP ####[facility] Rdrwnoscrn[address] [place] [address]DrMaris Suresh CK.MB [Mass/Vol] 0.86 ng/mL Normal <=3.60 [facility] Comment on above: Performed By: #### C MREP ####[facility] Cxakcbusjj6470 [place] [address]DrMaris Suresh HSTROP 7.8 pg/mL Normal 4.0-51.3 [facility] Comment on above: Result Comment: CUT- OFF POINTS HAVE BEEN ESTABLISHED BASED ON THE FOURTH UNIVERSAL DEFINITIONS OF MYOCARDIALINFARCTION. THE UPPER REFERENCE LIMIT (URL) OF TROPONIN, DEFINED THE 99TH PERCENTILE OFcTnI DISTRIBUTION IN A REFERENCE POPULATION, HAS BEEN CONFIRMED THE DECISION THRESHOLDFOR NM DIAGNOSIS. Performed By: #### C MREP ####[facility] Mfgsrzeoct[address] [place] [address]Dr. Devin Suresh CT ABD/PELVIS WO CONon 01-02 CT ABD/PELVIS WO CON Normal [facility] CT HEAD WO CONon 01-02-2022 CT HEAD WO CON Normal The [facility] ER URINE PROFILEon 2 Bilirubin Ql (U) SMALL Abnormal NEGATIVE The [facility] Comment on above: Performed By: #### U MICRO, ERUR ####[facility] Wdzljfveii[address] [place], [place] [address]Dr. Devin Suresh Clarity (U) CLEAR Normal CLEAR [facility] Comment on above: Performed By: #### U MICRO, ERUR ####[facility] Vgfogffcci[address] [place], [place] [address]Dr. Devin Suresh Color (U) YELLOW Normal YELLOW [facility] Comment on above: Performed By: #### U MICRO, ERUR ####[facility] Spgleskpgp[address] [place], [place] [address]Dr. Devin Suresh ERUAHD A micrscopic examina tion will be performed if indicated. Normal [facility] Comment on above: Performed By: #### U MICRO, ERUR ####[facility] Ynelxtcczr[address] [place] [address]Dr. Devin Suresh Glucose Ql (U) >1000 Abnormal NEGATIVE [facility] Comment on above: Performed By: #### U MICRO, ERUR ####[facility] Cgmvjkfilk[address] [place], [place] [address]Dr. Devin Suresh Hemoglobin Ql (U) SMALL Abnormal NEGATIVE The [facility] Comment on above: Performed By: #### U MICRO, ERUR ####[facility] Ypnqztqzer[address] [place], [place] [address]Dr. Devin Suresh Ketones Ql (U) 15 mg/dl Abnormal NEGATIVE [facility] Comment on above: Performed By: #### U MICRO, ERUR ####[facility] Kzmelyxhhq[address] [place], [place] [address]Dr. Devin Suresh LEUKOCYTES SMALL Abnormal NEGATIVE [facility] Comment on above: Performed By: #### U MICRO, ERUR ####[facility] Ahitmirhsm[address] [place] [address]Dr. Devin Suresh Nitrite Ql (U) Positive Abnormal NEGATIVE [facility] Comment on above: Performed By: #### U MICRO, ERUR ####[facility] Ulifnkbgtf5[address] [place] [address]Dr. Devin Suresh pH (U) 5.0 [pH] Normal 5-9 [facility] Comment on above: Performed By: #### U MICRO, ERUR ####[facility] Nhnqltlxyv3254 [place] [address]Dr. Devin Suresh Protein (U) [Mass/Vol] 100 mg/dL Abnormal NEGATIVE/ TRACE [facility] Comment on above: Performed By: #### U MICRO, ERUR ####[facility] Lioyizxzut[address] [place], [place] [address]Dr. Devin Suresh SPEC GRAVITY >=1.030 Abnormal 1.005-<=1.0 25 [facility] Comment on above: Performed By: #### U MICRO, ERUR ####[facility] Dcefxfeusb[address] [place], [place] [address]Dr. Devin Suresh UR MICRO IND INDICATED Normal [facility] Comment on above: Performed By: #### U MICRO, ERUR ####[facility] Pjqtwezjof[address] [place] [address]Dr. Devin Suresh Urobilinogen Qn (U) 0.2 {Sheyla'U}/dL Normal 0.2 - 1. 0 [facility] Comment on above: Performed By: #### U MICRO, ERUR ####[facility] Mcatbnvhpb[address] [place], [place] [address]Dr. Devin Suresh LACTATE/LACTIC ACIDon 2021 Lactate [Moles/Vol] 1.1 mmol/L Normal 0.4-1.9 [facility] Comment on above: Performed By: #### L ACT ####[facility] Ztyjuwfsom[address] [place], [place] [address]Dr. Devin Kerwin URINE MICROSCOPIC ONLYon BACTERIA LARGE Abnormal NONE SEEN [facility] Comment on above: Performed By: #### U MICRO, ERUR ####[facility] Mfpbhybxrv65[address] [place] [address]Dr. Devin Suresh Bacteria identified Cx Nom (U) INDICATED Normal [facility] Comment on above: Performed By: #### U MICRO, ERUR ####[facility] Xuauuejsev[address] [place] [address]Dr. Devin Suresh CAST NONE SEEN Normal NONE SEEN [facility] Comment on above: Performed By: #### U MICRO, ERUR ####[facility] Nplvlzuwoo6[address] [place] [address]Dr. Devin Suresh Crystals LM Nom (Urine sed) NONE SEEN Normal NONE SEEN [facility] Comment on above: Performed By: #### U MICRO, ERUR ####[facility] Fwjdfhfnnx18[address] [place] [address]Dr. Devin Suresh Epithelial cells LM Ql (Urine sed) FEW Abnormal NONE SEEN /RARE [facility] Comment on above: Performed By: #### U MICRO, ERUR ####[facility] Cxxmnyueeg5193 [place] [address]Dr. Devin Suresh MUCOUS NONE SEEN Normal NONE SEEN [facility] Comment on above: Performed By: #### U MICRO, ERUR ####[facility] Vjwmkmtyig0690 [place] [address]Dr. Devin Suresh RBC 0-2 Normal 0-2 [facility] Comment on above: Performed By: #### U MICRO, ERUR ####[facility] Voisjtclbw[address] [place] [address]Dr. Devin Suresh WBC 5-10 Abnormal NONE SEEN [facility] Comment on above: Performed By: #### U MICRO, ERUR ####[facility] Wzjwccxwtv22[address] [place] [address]Dr. Devin Suresh XR CHEST 1 Von 01-02-2022 XR CHEST 1 V Normal [facility] CARDIAC LAURA ADMITon 022 CK [Catalytic activity/Vol] 40 U/L Normal 26-192 The [facility] Comment on above: Performed By: #### B HOWARD PERAZA ####[facility] Uhtyrbztuo[address] [place] [address]Dr. Devin Suresh CK.MB [Mass/Vol] 0.95 ng/mL Normal <=3.60 The [facility] Comment on above: Performed By: #### B HOWARD PERAZA ####[facility] Ykiscienqk32[address] [place] [address]Dr. Devin Suresh HSTROP 6.7 pg/mL Normal 4.0-51.3 [facility] Comment on above: Result Comment: CUT- OFF POINTS HAVE BEEN ESTABLISHED BASED ON THE FOURTH UNIVERSAL DEFINITIONS OF MYOCARDIALINFARCTION. THE UPPER REFERENCE LIMIT (URL) OF TROPONIN, DEFINED THE 99TH PERCENTILE OFcTnI DISTRIBUTION IN A REFERENCE POPULATION, HAS BEEN CONFIRMED THE DECISION THRESHOLDFOR NM DIAGNOSIS. Performed By: #### HOWARD Elizondo MP ####[facility] Ifgkywhhtk48[address] [place] [address]Dr. Devin Suresh MELANIE 53 ng/mL Normal 9-82 [facility] Comment on above: Performed By: #### HOWARD Elizondo MP ####[facility] Vnzrcynwvh[address] [place], [place] [address]Dr. Devin Suresh CBC AUTO DIFFon 01-01-2022 BASO # 0.1 103/ul Normal 0.0-0.1 [facility] Comment on above: Performed By: #### C BC ####[facility] Kkbrbsnpwj[address] [place], [place] [address]Dr. Devin Suresh Basophils/100 WBC (Bld) 0.5 % Normal 0.2-2.0 [facility] Comment on above: Performed By: #### C BC ####[facility] Mrbxfrljte34[address] [place], [place] [address]Dr. Devin Suresh EO # 0.1 103/ul Normal 0.0-0.7 [facility] Comment on above: Performed By: #### C BC ####[facility] Jrjbrqydlm49[address] [place], [place] [address]Dr. Devin Suresh Eosinophils/100 WBC (Bld) 0.7 % Critically low 0.9-7.0 [facility] Comment on above: Performed By: #### C BC ####[facility] Yzohzwmrcn[address] [place], [place] [address]Dr. Devin Suresh Erythrocyte distribution width (RBC) [Ratio] 12.5 % Normal 11.0-15.0 [facility] Comment on above: Performed By: #### C BC ####[facility] Wcmqbgsbwv[address] [place], [place] [address]Dr. Devin Suresh Hematocrit (Bld) [Volume fraction] 43.0 % Normal 36.0-48.0 [facility] Comment on above: Performed By: #### C BC ####[facility] Ygabjrnlht[address] [place], [place] [address]Dr. Devin Suresh Hemoglobin (Bld) [Mass/Vol] 15.2 g/dL Normal 12.0-16.0 [facility] Comment on above: Performed By: #### C BC ####[facility] Vlemqovjsu[address] [place], [place] [address]Dr. Devin Suresh IG # 0.05 10e3/ul Critically high 0.00-0.03 [facility] Comment on above: Performed By: #### C BC ####[facility] Qkejyldtti22[address] [place], [place] [address]Dr. Devin Suresh IG % 0.4 % Normal 0.0-0.5 [facility] Comment on above: Performed By: #### C BC ####[facility] Gwujuiesmn8[address] [place], [place] [address]Dr. Devin Suresh LYMPH # 2.0 103/ul Normal 1.2-3.8 [facility] Comment on above: Performed By: #### C BC ####[facility] Zexligrfsf[address] [place], [place] [address]Dr. Devin Suresh Lymphocytes/100 WBC (Bld) 15.1 % Critically low 20.5-60.0 [facility] Comment on above: Performed By: #### C BC ####[facility] Tydugggshq[address] [place], [place] [address]Dr. Devin Suresh MANUAL DIFF REQ NO Normal [facility] Comment on above: Performed By: #### C BC ####[facility] Twxzegroff9567 [place] [address]DrMaris Suresh MCH (RBC) [Entitic mass] 30.2 pg Normal 26.7-34.0 [facility] Comment on above: Performed By: #### C BC ####[facility] Btyyoytmic7183 [place] [address]DrMaris Suresh MCHC (RBC) [Mass/Vol] 35.3 g/dL Critically high 29.9-35.2 [facility] Comment on above: Performed By: #### C BC ####[facility] Qrwmsjoaop[address] [place], [place] [address]DrMaris Suresh MCV (RBC) [Entitic vol] 85.3 fL Normal 81.0-99.0 [facility] Comment on above: Performed By: #### C BC ####[facility] T[address]rsrzojgw[address] [place], [place] [address]DrMaris Suresh MONO # 0.7 103/ul Normal 0.3-0.8 [facility] Comment on above: Performed By: #### C BC ####[facility] Mzeovrahgh[address] [place], [place] [address]DrMaris Suresh Monocytes/100 WBC (Bld) 5.6 % Normal 1.7-12.0 [facility] Comment on above: Performed By: #### C BC ####[facility] Erdvamhfjc[address] [place], [place] [address]DrMaris Suresh NEUT # 10.2 103/ul Critically high 1.4-6.5 [facility] Comment on above: Performed By: #### C BC ####[facility] Zaxjwexywi50[address] [place], [place] [address]DrMaris Suresh Neutrophils/100 WBC (Bld) 77.7 % Critically high 43.0-75.0 [facility] Comment on above: Performed By: #### C BC ####[facility] Qorfrwbukx[address] [place], [place] [address]DrMaris Suresh Platelet mean volume (Bld) [Entitic vol] 9.1 fL Critically low 9.5-13.5 [facility] Comment on above: Performed By: #### C BC ####[facility] Pfibhyvuft56[address] [place], [place] [address]Qz. Devin Suresh PLT 420 103/ul Normal 150-450 [facility] Comment on above: Performed By: #### C BC ####[facility] Pymglathwv11[address] [place], [place] [address]Dh. Devin Surseh RBC 5.04 106/ul Normal 4.20-5.40 [facility] Comment on above: Performed By: #### C BC ####[facility] Uzgvcteltb0468 [place], [place] [address]Ld. Devin Suresh WBC 13.1 103/ul Critically high 4.0-11.0 [facility] Comment on above: Performed By: #### C BC ####[facility] Racfvsqyvf3606 [place], [place] [address]Dk. Devin Suresh [facility]on 12-23 SARS-CoV-2 (COVID-19) RNA EBONIE+probe Ql (Unsp spec) Not detected Normal NOT DETECTED [facility] Comment on above: Result Comment: When [...] for this test is supported by the [place] of [employer] and Human Service's declaration that [...] be used). Performed By: #### C VDTB ####[facility] Maghcthcgr[address] [place] [id number]. Devin Suresh D-DIMERon 01-01-2022 D-DIMER 0.36 mg/L FEU Normal <=0.59 [facility] Comment on above: Performed By: #### D DIM ####[facility] Yypswqjgux[address] [place] [address]Dr. Devin Suresh D-DIMER COMMENTS SEE BELOW Normal [facility] Comment on above: Result Comment: Incr [...] generalized hospitalization. Performed By: #### D DIM ####[facility] Cdxovllgoa[address] [place], [place] [address]Dr. Devin Suresh LACTATE/LACTIC ACIDon 2021 Lactate [Moles/Vol] 1.8 mmol/L Normal 0.4-1.9 [facility] Comment on above: Performed By: #### L ACT ####[facility] Xmvcfvxane[address] [place], [place] [address]Dr. Devin Suresh PROF CHEM 8 (BAS METB)on Anion gap [Moles/Vol] 16.5 mmol/L Normal [facility] Comment on above: Performed By: #### B HOWARD PERAZA ####[facility] Xlldodctxa6244 [place] [address]Dr. Devin Suresh Calcium [Mass/Vol] 9.9 mg/dL Normal 8.5-10.1 [facility] Comment on above: Performed By: #### B HOWARD PERAZA ####[facility] Hionvljzlc5739 [place] [address]Dr. Devin Suresh Chloride [Moles/Vol] 98 mmol/L Normal 98-107 [facility] Comment on above: Performed By: #### B HOWARD PERAZA ####[facility] Xowwtvytjf2061 [place] [address]Dr. Devin Suresh CO2 [Moles/Vol] 25.6 mmol/L Normal 21.0-32.0 [facility] Comment on above: Performed By: #### B STU, CMADM ####[facility] Ejtaudqlxh5468 [place] [address]Dr. Devin Suresh Creatinine [Mass/Vol] 1.18 mg/dL Critically high 0.55-1.02 [facility] Comment on above: Performed By: #### B STU, CMAJONNY ####[facility] Ebjgalrhki70[address] [place] [address]Dr. Devin Suresh EGFR-AF CONGOLESE 60 mL/min/1.73m2 Normal >=60 [facility] Comment on above: Performed By: #### B STU CMAJONNY ####[facility] Ubnjapewnu[address] [place], [place] [address]Dr. Devin Suresh EGFR-NON AF CONGOLESE 50 mL/min/1.73m2 Critically low >=60 [facility] Comment on above: Performed By: #### B HOWARD PERAZA ####[facility] Idyxrhhnzt[address] [place], [place] [address]Dr. Devin Suresh Glucose [Mass/Vol] 166 mg/dL Critically high 74-106 [facility] Comment on above: Performed By: #### B STU, CMAJONNY ####[facility] Fehlbs[address]uf[address] [place], [place] [address]Dr. Devin Suresh Potassium [Moles/Vol] 3.1 mmol/L Critically low 3.5-5.1 [facility] Comment on above: Performed By: #### B HOWARD PERAZA ####[facility] Jlvsteihin[address] [place], [place] [address]Dr. Devin Suresh Sodium [Moles/Vol] 137 mmol/L Normal 136-145 [facility] Comment on above: Performed By: #### B STU CMAJONNY ####[facility] Tuaztitwri[address] [place], [place] [address]Dr. Devin Suresh Urea nitrogen [Mass/Vol] 12.0 mg/dL Normal 7.0-18.0 [facility] Comment on above: Performed By: #### B HOWARD PERAZA ####[facility] Rralelrgpx5980 [place], [place] [address]Fx. Devin Suresh Urea nitrogen/Creatinine [Mass ratio] 10.2 mg/mg Normal [facility] Comment on above: Performed By: #### B HOWARD PERAZA ####[facility] [address] [place], [place] [address]Du. Devin Suresh CHEMISTRYOrdered By: SYSTEM SYSTEM on [...] rate/Area] mL/min/1.73 m2 Normal >=59mL/min/ 1.73 m2 [facility] [place] S GFR/1.73 sq M.predicted among non-blacks MDRD (S/P/Bld) [Vol rate/Area] mL/min/1.73 m2 Normal >=59mL/min/ 1.73 m2 [facility] [place] S Glucose [Mass/Vol] 236 mg/dL High 55 - 199 mg/dL FT Remisol Magnesium [Mass/Vol] 1.4 mg/dL Normal 1.3 - 2 .4 mg/dL FT Remisol Potassium [Moles/Vol] 3.8 mmol/L Normal 3.5 - 5.3 mmol/L FT Remisol Sodium [Moles/Vol] 138 mmol/L Normal 135 - 145 mmol/L FT Remisol Urea nitrogen [Mass/Vol] 16 mg/dL Normal 5 - 21 mg/dL [facility] Remisol Urea nitrogen/Creatinine [Mass ratio] 18 mg/mg [...] Urinalysison Bacteria, UA FEW Abnormal Negative /HPF [facility] Epithelial Cells, UA 3-5 /HPF [facility] RBC, UA 0-2 [facility] WBC, UA 3-5 [facility] No Panel Informationon 12-08 Interpretation and review of laboratory results Abnormal [facility] UR Drug Screen Rapidon 12-08 Drug Screen Comment see below Normal [facility] Comment on above: Result Comment: This method is a screening test to detect only these drug classes as part of a medical workup. Confirmatory testing by another method should be ordered if clinically indicated. Performed By: #### U DSNC #### [facility] [address] [place] [address] UR Amphetamines Rapid Screen Negative Normal Negative < [facility] Comment on above: Result Comment: Effe ctive: 12/07/17 Methodology and/or Reference Range-Cutoff has changed. Performed By: #### U DSNC #### [facility] [address] [place] [address] UR Barbiturates Rapid Screen Negative Normal Negative < [facility] Comment on above: Result Comment: Effe ctive: 12/07/17 Methodology and/or Reference Range-Cutoff has changed. Performed By: #### U DSNC #### [facility] [address] [place] [address] UR Benzo Rapid Screen Negative Normal Negative < [facility] Comment on above: Result Comment: Effe ctive: 12/07/17 Methodology and/or Reference Range-Cutoff has changed. Performed By: #### U DSNC #### [facility] [address] [place] [address] UR Cannabinoids Rapid Screen Negative Normal Negative < [facility] Comment on above: Performed By: #### U DSNC #### [facility] [address] [place] [address] UR Cocaine Rapid Screen Negative Normal Negative < [facility] Comment on above: Result Comment: Effe ctive: 12/07/17 Methodology and/or Reference Range-Cutoff has changed. Performed By: #### U DSNC #### [facility] [address] [place] [address] UR Opiates Rapid Screen Negative Normal Negative < [facility] Comment on above: Result Comment: Effe ctive: 12/07/17 Methodology and/or Reference Range-Cutoff has changed. Performed By: #### U DSNC #### [facility] [address] [place] [address] UR PCP Rapid Screen Negative Normal Negative < [facility] Comment on above: Performed By: #### U DSNC #### [facility] [address] [place] [address] UR Tricyclics Rapid Screen - Rapid Positive Abnormal Negative < [facility] Comment on above: Result Comment: Effe ctive: 12/07/17 Methodology and/or Reference Range-Cutoff has changed. Performed By: #### U DSNC #### [facility] [address] [place] [address] Urinalysis with Reflex to Cu ltureon 12-08-2021 Bilirubin Urine Negative Negative [facility] Blood, Urine Negative Negative [facility] Clarity, UA Clear Clear [facility] Color, UA Yellow Straw/Yello w [facility] Glucose, Ur 250 mg/dL Abnormal Negative [facility] Ketones Ql (U) Negative Negative mg/dL [facility] Leukocyte esterase Test strip Ql (U) TRACE Abnormal Negative [facility] Nitrite, Urine Negative Negative [facility] pH, UA 5.0 5 - 9 [facility] Protein, UA Negative Negative mg/dL [facility] Specific [place], UA 1.015 1.005 - 1.03 [facility] Urine Reflex to Culture Not Indicated [facility] Urobilinogen, Urine 0.2 NINF [facility] Urinalysis, reflex to cultur turner 12-08-2021 Urine Reflexed to Culture Not Indicated Normal [facility] Comment on above: Performed By: #### U AR #### [facility] [address] [place] [address] Bilirubin Ql (U) Negative Normal Negative [facility] Comment on above: Performed By: #### U AR #### [facility] [address] [place] [address] Clarity (U) Clear Normal Clear [facility] Comment on above: Performed By: #### U AR #### [facility] [address] [place] [address] Color (U) Yellow Normal Straw/Reno [facility] Comment on above: Performed By: #### U AR #### [facility] [address] [place] [address] Glucose Ql (U) 250 mg/dL Abnormal Negative [facility] Comment on above: Performed By: #### U AR #### [facility] [address] [place] [address] Hemoglobin Ql (U) Negative Normal Negative [facility] Comment on above: Performed By: #### U AR #### [facility] [address] [place] [address] Ketones Ql (U) Negative Normal Negative [facility] Comment on above: Performed By: #### U AR #### [facility] [address] [place] [address] Leukocyte esterase Test strip Ql (U) TRACE Abnormal Negative [facility] Comment on above: Performed By: #### U AR #### [facility] [address] [place] [address] Nitrite Ql (U) Negative Normal Negative [facility] Comment on above: Performed By: #### U AR #### [facility] [address] [place] [address] pH (U) 5.0 [pH] Normal 5.0-9.0 [facility] Comment on above: Performed By: #### U AR #### [facility] [address] [place] [address] Protein Ql (U) Negative Normal Negative [facility] Comment on above: Performed By: #### U AR #### [facility] [address] [place] [address] Specific gravity (U) [Rel density] 1.015 Normal 1.005-1.03 [facility] Comment on above: Performed By: #### U AR #### [facility] [address] [place] [address] Urobilinogen Qn (U) 0.2 {Sheyla'U}/dL Normal < 2.0 [facility] Comment on above: Performed By: #### U AR #### [facility] [address] [place] [address] Urine Drug Screen, Comprehen siveon 12-08-2021 Amphetamine Screen, Urine Negative Negative <500 ng/mL [facility] Comment on above: Effective: 12/07/17 Methodology and/or Reference Range-Cutoff has changed. Barbiturate Screen, Ur Negative Negative <200 ng/mL [facility] Comment on above: Effective: 12/07/17 Methodology and/or Reference Range-Cutoff has changed. Benzodiazepine Screen, Urine Negative Negative <150 ng/mL [facility] Comment on above: Effective: 12/07/17 Methodology and/or Reference Range-Cutoff has changed. Cannabinoid Scrn, Ur Negative Negativ e <50 ng/mL [facility] Cocaine Metabolite Screen, Urine Negative Negative <150 ng/mL [facility] Comment on above: Effective: 12/07/17 Methodology and/or Reference Range-Cutoff has changed. Drug Screen Comment: see below [facility] Comment on above: This method is a scr eening test to detect only these drug classes as part of a medical workup. Confirmatory testing by another method should be ordered if clinically indicated. Interpretation and review of laboratory results Abnormal [facility] Opiate Scrn, Ur Negative Negative <100 ng/mL [facility] Comment on above: Effective: 12/07/17 Methodology and/or Reference Range-Cutoff has changed. PCP Screen, Urine Negative Negative <25 ng/mL [facility] Tricyclic Positive Abnormal Negative <300 ng/mL [facility] Comment on above: Effective: 12/07/17 Methodology and/or Reference Range-Cutoff has changed. [facility] Urine Microscopicon 12-09-19 22 Epithelial cells LM Ql (Urine sed) 3-5 Normal [facility] Comment on above: Performed By: #### U DOMENIC #### [facility] [address] [place] [address] Urine Bacteria FEW Abnormal Negative [facility] Comment on above: Performed By: #### U DOMENIC #### [facility] [address] [place] [address] Urine RBC 0-2 Normal 0-2 [facility] Comment on above: Performed By: #### U DOMENIC #### [facility] [address] [place] [address] Urine WBC 3-5 Normal 0-5 [facility] Comment on above: Performed By: #### U DOMENIC #### [facility] [address] [place] [address] HEP B SURFACE ANTIGEN SCREEN on 12-05-2021 HBsAg Screen Negative Normal Negative [facility] Comment on above: Performed By: #### H BSANS ####[facility] [address] [place] [id number]. Devin Suresh HEPATITIS C ANTIBODYon 12-05 Hep C Virus Ab 0.1 s/co ratio Normal 0.0-0.9 [facility] Comment on above: Result Comment: Nega tive: < 0.8 Indeterminate: 0.8 - 0.9 Positive: > 0.9 . HCV antibody alone does not differentiate between previous resolved infection and active infection. The CDC and current clinical guidelines recommend that a positive HCV antibody result be followed up with an HCV RNA test to support the diagnosis of acute HCV infection. [facility] Hepatitis C Virus (HCV) RNA, Diagnosis, EBONIE (747592) and Hepatitis C Virus (HCV) Antibody with reflex to Quantitative Real-time PCR (092403). Performed By: #### H CV ####[facility] [address] [place] [phone]. Devin Suresh HIV 1 AND 2 WITH REFLEXon HIV Screen 4th Generation wRfx Non-Reactive Normal Non Reactive [facility] Comment on above: Result Comment: HIV NegativeHIV-1/HIV-2 antibodies and HIV-1 p24 antigen were NOT detected.There is no laboratory evidence of HIV infection. Performed By: #### H IV12 ####[facility] [address] [place] [phone]. Devin Suresh RPR QUANTon 12-05-2021 Rapid Plasma Reagin, Quant Non-Reactive Normal NonRea<1:1 [facility] Comment on above: Result Comment: Plea se Note: This test does not meet current guidelines forscreening and diagnosis of syphilis. This test is intended forfollowing treatment response in patients being treated forsyphilis infection. To screen for syphilis infection, a reflexcascade that includes both RPR and a treponema-specific assayshould be utilized, such as Treponema pallidum (Syphilis)Screening [place] (235243) or Rapid Plasma Reagin (RPR) TestWith Reflex to Quantitative RPR and Confirmatory Treponemapallidum Antibodies (225437). Performed By: #### R PRQ ####[facility] [address] [place], [place] [address]Dr. Devin Suresh CBC AUTO DIFFon 12-04-2021 BASO # 0.1 103/ul Normal 0.0-0.1 [facility] Comment on above: Performed By: #### C BC ####[facility] [address] [place], [place] [address]Dr. Devin Suresh Basophils/100 WBC (Bld) 0.9 % Normal 0.2-2.0 [facility] Comment on above: Performed By: #### C BC ####[facility] [address] [place], [place] [address]Dr. Devin Suresh EO # 0.2 103/ul Normal 0.0-0.7 [facility] Comment on above: Performed By: #### C BC ####[facility] [address] [place], [place] [address]Dr. Devin Suresh Eosinophils/100 WBC (Bld) 2.8 % Normal 0.9-7.0 [facility] Comment on above: Performed By: #### C BC ####[facility] [address] [place], [place] [address]Dr. Devin Suresh Erythrocyte distribution width (RBC) [Ratio] 12.0 % Normal 11.0-15.0 [facility] Comment on above: Performed By: #### C BC ####[facility] [address] [place], [place] [address]Dr. Devin Suresh Hematocrit (Bld) [Volume fraction] 34.6 % Critically low 36.0-48.0 [facility] Comment on above: Performed By: #### C BC ####[facility] [address] [place] [address]Dr. Devin Suresh Hemoglobin (Bld) [Mass/Vol] 11.7 g/dL Critically low 12.0-16.0 [facility] Comment on above: Performed By: #### C BC ####[facility] [address] [place] [address]Dr. Devin Suresh IG # 0.04 10e3/ul Critically high 0.00-0.03 [facility] Comment on above: Performed By: #### C BC ####[facility] [address] [place] [address]Dr. Devin Kerwin IG % 0.6 % Critically high 0.0-0.5 [facility] Comment on above: Performed By: #### C BC ####[facility] [address] [place], [place] [address]Dr. Tishemily Kerwin LYMPH # 2.0 103/ul Normal 1.2-3.8 [facility] Comment on above: Performed By: #### C BC ####[facility] [address] [place], [place] [address]Dr. Devin Kerwin Lymphocytes/100 WBC (Bld) 31.2 % Normal 20.5-60.0 [facility] Comment on above: Performed By: #### C BC ####[facility] [address] [place] [address]Dr. Tishemily Suresh MANUAL DIFF REQ NO Normal [facility] Comment on above: Performed By: #### C BC ####[facility] [address] [place], [place] [address]Dr. Devin Kerwin MCH (RBC) [Entitic mass] 30.8 pg Normal 26.7-34.0 [facility] Comment on above: Performed By: #### C BC ####[facility] [address] [place] [address]Dr. Devin Suresh MCHC (RBC) [Mass/Vol] 33.8 g/dL Normal 29.9-35.2 [facility] Comment on above: Performed By: #### C BC ####[facility] [address] [place] [phone]. Devin Suresh MCV (RBC) [Entitic vol] 91.1 fL Normal 81.0-99.0 [facility] Comment on above: Performed By: #### C BC ####[facility] [address] [place] [phone]. Devin Kerwin MONO # 0.4 103/ul Normal 0.3-0.8 [facility] Comment on above: Performed By: #### C BC ####[facility] [address] [place] [address]Dr. Devin Kerwin Monocytes/100 WBC (Bld) 6.6 % Normal 1.7-12.0 [facility] Comment on above: Performed By: #### C BC ####[facility] [address] [place], [place] [address]Dr. Devin Suresh NEUT # 3.7 103/ul Normal 1.4-6.5 [facility] Comment on above: Performed By: #### C BC ####[facility] [address] [place], [place] [address]Dr. Tishemily Suresh Neutrophils/100 WBC (Bld) 57.9 % Normal 43.0-75.0 [facility] Comment on above: Performed By: #### C BC ####[facility] [address] [place], [place] [address]Dr. Devin Kerwin Platelet mean volume (Bld) [Entitic vol] 9.0 fL Critically low 9.5-13.5 [facility] Comment on above: Performed By: #### C BC ####[facility] [address] [place], [place] [address]Dr. Devin Surseh PLT 272 103/ul Normal 150-450 [facility] Comment on above: Performed By: #### C BC ####[facility] [address] [place] [phone]. Devin Suresh RBC 3.80 106/ul Critically low 4.20-5.40 [facility] Comment on above: Performed By: #### C BC ####[facility] [address] [place] [phone]. Devin Suresh WBC 6.4 103/ul Normal 4.0-11.0 [facility] Comment on above: Performed By: #### C BC ####[facility] [address] [place] [phone]. Devin Suresh HIV 1/2 RAPID (EXPOSURE ONLY )on 12-04-2021 HIV AB Negative Normal [facility] Comment on above: Performed By: #### R PDHIV ####[facility] [address] [place] [phone]. Devin Suresh HIV AG Negative Normal [facility] Comment on above: Performed By: #### R PDHIV ####[facility] [address] [place] [phone]. Devin Suresh INTERNAL CONTROLS Within Normal Limits Normal Wi thin Normal Limits [facility] Comment on above: Performed By: #### R PDHIV ####[facility] [address] [place] [phone]. Devin Suresh RAPID HIV INFO SEE BELOW Normal [facility] Comment on above: Result Comment: This test is used for the initial screening of the exposure source. Confirmation of all results will be obtained through reference lab testing. Performed By: #### R PDHIV ####[facility] [address] [place] [phone]. Devin Suresh PROF 14(COMP METB)on 022 Albumin [Mass/Vol] 2.7 g/dL Critically low 3.4-5.0 Th e [facility] Comment on above: Performed By: #### C MP ####[facility] [address] [place] [phone]. Devin Suresh Albumin/Globulin [Mass ratio] 0.9 {ratio} Normal [facility] Comment on above: Performed By: #### C MP ####[facility] [address] [place] [phone]. Devin Suresh ALP [Catalytic activity/Vol] 98 U/L Normal 46-116 [facility] Comment on above: Performed By: #### C MP ####[facility] [address] [place] [phone]. Devin Suresh ALT [Catalytic activity/Vol] 17 U/L Normal 14-59 [facility] Comment on above: Performed By: #### C MP ####[facility] [address] [place] [phone]. Devin Suresh Anion gap [Moles/Vol] 12.0 mmol/L Normal Th [facility] Comment on above: Performed By: #### C MP ####[facility] [address] [place] [phone]. Devin Kerwin AST [Catalytic activity/Vol] 6 U/L Critically low 15-37 [facility] Comment on above: Performed By: #### C MP ####[facility] [address] [place] [address]Dr. Devin Kerwin Bilirubin [Mass/Vol] 0.3 mg/dL Normal 0.2-1.0 [facility] Comment on above: Performed By: #### C MP ####[facility] [address] [place] [phone]. Devin Kerwin Calcium [Mass/Vol] 8.1 mg/dL Critically low 8.5-10.1 [facility] Comment on above: Performed By: #### C MP ####[facility] [address] [place] [phone]. Devin Suresh Chloride [Moles/Vol] 108 mmol/L Critically high 98-107 [facility] Comment on above: Performed By: #### C MP ####[facility] [address] [place] [phone]. Devin Kerwin CO2 [Moles/Vol] 25.4 mmol/L Normal 21.0-32.0 [facility] Comment on above: Performed By: #### C MP ####[facility] [address] [place] [phone]. Devin Kerwin Creatinine [Mass/Vol] 0.80 mg/dL Normal 0.55-1.02 [facility] Comment on above: Performed By: #### C MP ####[facility] [address] [place] [address]Dr. Devin Suresh EGFR-AF CONGOLESE >60 Normal >=60 [facility] Comment on above: Performed By: #### C MP ####[facility] [address] [place] [phone]. Devin Suresh EGFR-NON AF CONGOLESE >60 Normal >=60 [facility] Comment on above: Performed By: #### C MP ####[facility] [address] [place] [phone]. Devin Suresh Globulin (S) [Mass/Vol] 3.0 g/dL Normal [facility] Comment on above: Performed By: #### C MP ####[facility] [address] [place] [address]Dr. Devin Suresh Glucose [Mass/Vol] 153 mg/dL Critically high 74-106 [facility] Comment on above: Performed By: #### C MP ####[facility] [address] [place] [address]Dr. Devin Suresh Potassium [Moles/Vol] 3.4 mmol/L Critically low 3.5-5.1 [facility] Comment on above: Performed By: #### C MP ####[facility] [address] [place] [address]Dr. Devin Suresh Protein [Mass/Vol] 5.7 g/dL Critically low 6.4-8.2 [facility] Comment on above: Performed By: #### C MP ####[facility] [address] [place] [address]Dr. Devin Suresh Sodium [Moles/Vol] 142 mmol/L Normal 136-145 [facility] Comment on above: Performed By: #### C MP ####[facility] [address] [place] [address]Dr. Devin Suresh Urea nitrogen [Mass/Vol] 16.0 mg/dL Normal 7.0-18.0 [facility] Comment on above: Performed By: #### C MP ####[facility] [address] [place], [place] [address]Ay. Devin Suresh Urea nitrogen/Creatinine [Mass ratio] 20.0 mg/mg Normal [facility] Comment on above: Performed By: #### C MP ####[facility] [address] [place], [place] [address]Fd. Devin Suresh XR SACRUM_COCCYXon XR SACRUM_COCCYX Normal [facility] CHEMISTRYOrdered By: Lab ROP User on 11-06-2021 Glucose [Mass/Vol] 123 mg/dL High 55 - 99 mg/dL [facility] POC Subsection Comment on above: Result Comment: Peter yeh RN/ POC Device SN [id number] Invalid Interpretation Code [facility] POC Subsection POC User ID [id number] Invalid Interpretation Code [facility] POC Subsection POC Username LATONYA LORENZO Invalid Interpretation Code [facility] POC Subsection Glucose [Mass/Vol] 94 mg/dL Normal 55 - 99 mg/dL [facility] POC Subsection Comment on above: Result Comment: Peter yeh RN/ POC Device SN [id number] Invalid Interpretation Code [facility] POC Subsection POC User ID [id number] Invalid Interpretation Code [facility] POC Subsection POC Username LATONYA LORENZO Invalid Interpretation Code [facility] POC Subsection CHEMISTRYOrdered By: Lab ROP User on 11-05-2021 Glucose [Mass/Vol] 130 mg/dL High 55 - 99 mg/dL [facility] POC Subsection Comment on above: Result Comment: Prema piper Meter POC Device SN [id number] Invalid Interpretation Code [facility] POC Subsection POC User ID [id number] Invalid Interpretation Code [facility] POC Subsection POC Username WALE KERN Invalid Interpretation Code [facility] POC Subsection CHEMISTRYOrdered By: SYSTEM SYSTEM on 11-05-2021 HCG.beta subunit Qn 9 m[IU]/mL High 1 - 3 mIU/mL [facility] Remisol CEFEPIME:SUSC:PT:ISOLATE:ORD QN:MICon 11-04-2021 Cefepime DOMENIC [Susc] 10,000 cfu/ml Proteu s mirabilis 50,000 cfu/ml Staphylococcus species [facility] CHEMISTRYOrdered By: SYSTEM SYSTEM on [...] DOMENIC [Susc]on 2021 Proteus mirabilis Proteus mirabilis [facility] HEMATOLOGYOrdered By: SYSTEM SYSTEM on [...] (Urine sed) [#/Area] 5-8 /HPF Normal 0-2/HPF [facility] Aut o SS Glucose Test strip (U) [Mass/Vol] 3+ *ABN* (11/04/21 12:55 PM) Invalid Interpretation Code Negative [facility]A Auto SS Hemoglobin Ql (U) Trace *ABN* (11/04/21 12:55 PM) Invalid Interpretation Code Negative [facility] Auto SS Ketones (U) [Mass/Vol] Negative (11/04/21 12:55 PM) Normal Negative [facility] Auto SS Powers.plasma/Lithiu m.RBC (Bld) [Mass ratio] 0-3 /HPF Normal 0-3/HPF [facility] Auto SS Mucus Ql (Urine sed) Trace (11/04/21 12:55 PM) Normal [facility] Auto SS Nitrite Ql (U) Positive *ABN* (11/04/21 12:55 PM) Invalid Interpretation Code Negative [facility] [place] Auto SS pH (U) 6.0 *NA* (11/04/21 12:55 PM) Invalid Interpretation Code 5.0 - 9.0 [facility] [place] Protein (U) [Mass/Vol] Negative (11/04/21 12:55 PM) Normal Negative [facility] [place] Auto [place] Specific gravity (U) [Rel density] >=1.030 *NA* (11/04/21 12:55 PM) Invalid Interpretation Code 1.005 - 1.030 [facility] [place] UA Spec Desc Clean Catch (11/04/21 12:55 PM) Normal [facility] [place] Auto SS Urobilinogen Qn (U) [id number] {Sheyla'U}/dL Normal 0.0 - 1.0 EU/dL [facility] [place] Auto SS WBC Auto Ql (U) Negative (11/04/21 12:55 PM) Normal Negative [facility] [place] Auto SS WBC casts LM.LPF (Urine sed) [#/Area] 0-3 (11/04/21 12:55 PM) Normal [facility] [place] Auto SS WBC LM.HPF (Urine sed) [#/Area] 0-5 /HPF Normal 0-5/HPF [facility] UA Auto SS CHEMISTRYOrdered By: SYSTEM SYSTEM on 10-09-2021 Anion gap [Moles/Vol] 14 mmol/L Normal 6 - 16 mEq/L [facility] [place] Remisol Calcium [Mass/Vol] 8.5 mg/dL Low 8.9 [...] 60 mL/min/1.73 m2 Normal >=59mL/min/ 1.73 m2 [facility] [place] Chem S Glucose [Mass/Vol] 158 mg/dL Normal [...] Ag Negative (10/09/21 4:48 PM) Normal Negative [facility] [place] Man Sero Influenzae B Ag Negative (10/09/21 [...] (Bld) [Mass fraction] 9.1 % High <=5.9% [facility] [place] ChemAutoSS CHEMISTRYOrdered By: Breanna Hammond on 10-03-2021 [...] 13.2 % Normal 10.9 - 14.2 % [facility] [place] HemeAutoSS Hematocrit (Bld) [Volume fraction] 38.8 % Normal 34.0 - 46.0 % [facility] [place] HemeAutoSS Hemoglobin (Bld) [Mass/Vol] 13.6 g/dL Normal 12.0 - 16.0 gm/dL [facility] HemeAutoSS MCH (RBC) [Entitic mass] 31.5 pg Normal 27.0 - 34.0 pg [facility] [place] HemeAutoSS MCHC (RBC) [Mass/Vol] 35.0 g/dL Normal 31.4 - 36.0 gm/dL [facility] HemeAutoSS MCV (RBC) [Entitic vol] 90.2 fL Normal 80.0 - 100.0 fL [facility] HemeAutoSS Platelet mean volume (Bld) [Entitic vol] 7.5 fL Normal 6.4 - 10.8 fL [facility] [place] [facility]eAuto[facility] Platelets (Bld) [#/Vol] 358.0 E9/L Normal 150.0 - 500.0 E9/L [facility]eAutoSS RBC (Bld) [#/Vol] 4.3 E12/L Normal 4.3 - 5.9 E12/L [facility] HemeAutoSS WBC corrected for nucl RBC Auto (Bld) [#/Vol] 7.5 E9/L Normal 4.0 - 11.0 E9/L [facility] [place] HemeAutoSS COVID Quick Testingon 2021 Result Positive [employer] Other Basic Metabolic Panelon 05-25 Anion gap [Moles/Vol] 9 mmol/L Low 10 - 2 0 mmol/L [facility] Calcium [Mass/Vol] 7.8 mg/dL Low 8.4 - 10. 2 mg/dL [facility] Chloride [Moles/Vol] 119 mmol/L High 98 - 10 8 mmol/L [facility] Creatinine [Mass/Vol] 0.72 mg/dL 0.40 - 1.10 [facility] GFR/1.73 sq M predicted among non-blacks MDRD (S/P/Bld) [Vol rate/Area] The eGFR should be used for monitoring renal function only and not for medication dosing. [facility] GFR/1.73 sq M.predicted CKD-EPI (S/P/Bld) [Vol rate/Area] 103 >=60 mL/min/1.73 m2 [facility] Glucose [Mass/Vol] 70 mg/dL 65 - 99 mg/dL [facility] HCO3 [Moles/Vol] 22 mmol/L 21 - 32 mmol/L [facility] Interpretation and review of laboratory results Abnormal [facility] Potassium [Moles/Vol] 3.5 mmol/L 3.5 - 5.1 mmol/L [facility] Sodium [Moles/Vol] 146 mmol/L High 135 - 145 mmol/L [facility] Urea nitrogen [Mass/Vol] 8 mg/dL 8 - 25 mg/dL [facility] Urea nitrogen/Creatinine [Mass ratio] 11.1 mg/mg [facility] CBCon 06-05-2020 Erythrocyte distribution width (RBC) [Entitic vol] 12.2 % 11.6 - 14.8 % [facility] Hematocrit (Bld) [Volume fraction] 35.1 % Low 36 - 46 % [facility] Hemoglobin (Bld) [Mass/Vol] 11.4 g/dL Low 12 - 16 g/dL [facility] Interpretation and review of laboratory results Abnormal [facility] MCH (RBC) [Entitic mass] 30.6 pg 26 - 34 pg [facility] MCHC (RBC) [Mass/Vol] 32.5 g/dL 31 - 3 7 g/dL [facility] MCV (RBC) [Entitic vol] 94.4 fL 80 - 100 fL [facility] Nucleated RBC (Bld) [#/Vol] 0.00 10*3/uL [facility] Nucleated RBC/100 WBC (Bld) [Ratio] 0.0 % [facility] Platelet mean volume (Bld) [Entitic vol] 9.4 fL 9.4 - 12.4 fL [facility] Platelets (Bld) [#/Vol] 191 10*3/uL [facility] RBC (Bld) [#/Vol] 3.72 10*6/uL Low [facility] ealth WBC (Bld) [#/Vol] 5.46 10*3/uL [facility] Lactic Acid, Plasmaon 2020 Interpretation and review of laboratory results Normal [facility] Lactate [Moles/Vol] 1.9 mmol/L 0.6 - 2 mmol/L [facility] Magnesiumon 06-05-2020 Magnesium [Mass/Vol] 1.8 mg/dL 1.6 - 2 .4 mg/dL [facility] Otheron 06-05-2020 Interpretation and review of laboratory results Normal [facility] POC Glucoseon 06-05-2020 Glucose [Mass/Vol] 201 mg/dL High 65 - 99 mg/dL [facility] Interpretation and review of laboratory results Abnormal [facility] Glucose [Mass/Vol] 143 mg/dL High 65 - 99 mg/dL [facility] Interpretation and review of laboratory results Abnormal [facility] Glucose [Mass/Vol] 93 mg/dL 65 - 99 mg/dL [facility] TSHon 06-05-2020 Interpretation and review of laboratory results Normal [facility] TSH Qn 2.35 m[IU]/L [facility] Basic Metabolic Panelon 05-25 Anion gap [Moles/Vol] 11 mmol/L 10 - 2 0 mmol/L [facility] Calcium [Mass/Vol] 7.8 mg/dL Low 8.4 - 10. 2 mg/dL [facility] Chloride [Moles/Vol] 115 mmol/L High 98 - 10 8 mmol/L [facility] Creatinine [Mass/Vol] 0.90 mg/dL 0.40 - 1.10 [facility] GFR/1.73 sq M predicted among non-blacks MDRD (S/P/Bld) [Vol rate/Area] The eGFR should be used for monitoring renal function only and not for medication dosing. [facility] GFR/1.73 sq M.predicted CKD-EPI (S/P/Bld) [Vol rate/Area] 79 >=60 mL/min/1.73 m2 [facility] Glucose [Mass/Vol] 107 mg/dL High 65 - 99 mg/dL [facility] HCO3 [Moles/Vol] 22 mmol/L 21 - 32 mmol/L [facility] Interpretation and review of laboratory results Abnormal [facility] Potassium [Moles/Vol] 3.7 mmol/L 3.5 - 5.1 mmol/L [facility] Sodium [Moles/Vol] 144 mmol/L 135 - 145 mmol/L [facility] Urea nitrogen [Mass/Vol] 14 mg/dL 8 - 25 mg/dL [facility] Urea nitrogen/Creatinine [Mass ratio] 15.6 mg/mg [facility] CBC WITH AUTO DIFFERENTIALon 06-04-2020 Basophils (Bld) [#/Vol] 0.08 10*3/uL [facility] Basophils/100 WBC (Bld) 1.1 % [facility] Eosinophils (Bld) [#/Vol] 0.16 10*3/uL [facility] Eosinophils/100 WBC (Bld) 2.2 % [facility] Erythrocyte distribution width (RBC) [Entitic vol] 12.3 % 11.6 - 14.8 % [facility] Hematocrit (Bld) [Volume fraction] 36.0 % 36 - 46 % [facility] Hemoglobin (Bld) [Mass/Vol] 11.8 g/dL Low 12 - 16 g/dL [facility] Immature granulocytes (Bld) [#/Vol] 0.02 10*3/uL [facility] Immature granulocytes/100 WBC (Bld) 0.30 % [facility] Comment on above: The IG parameter is the percentage of metamyelocytes, myelocytes and promyelocytes. An immature granulocyte count (IG) of 1% or more suggests the possibility of infection, an IG count of 3% is very likely related to an infection. Interpretation and review of laboratory results Abnormal [facility] Lymphocytes (Bld) [#/Vol] 2.82 10*3/uL [facility] Lymphocytes/100 WBC (Bld) 39.6 % [facility] MCH (RBC) [Entitic mass] 31.1 pg 26 - 34 pg [facility] MCHC (RBC) [Mass/Vol] 32.8 g/dL 31 - 3 7 g/dL [facility] MCV (RBC) [Entitic vol] 95.0 fL 80 - 100 fL [facility] Monocytes (Bld) [#/Vol] 0.45 10*3/uL [facility] Monocytes/100 WBC (Bld) 6.3 % [facility] Neutrophils (Bld) [#/Vol] 3.59 10*3/uL [facility] Neutrophils/100 WBC (Bld) 50.5 % [facility] Nucleated RBC (Bld) [#/Vol] 0.00 10*3/uL [facility] Nucleated RBC/100 WBC (Bld) [Ratio] 0.0 % [facility] Platelet mean volume (Bld) [Entitic vol] 9.7 fL 9.4 - 12.4 fL [facility] Platelets (Bld) [#/Vol] 234 10*3/uL [facility] RBC (Bld) [#/Vol] 3.79 10*6/uL Low [facility] ealth WBC (Bld) [#/Vol] 7.12 10*3/uL [facility] ealt Hemoglobin A1con 06-04-2020 Average glucose Estimated from glycated hemoglobin mass conc (Bld) 246 mg/dL High 68 - 114 mg/dL [facility] HbA1c (Bld) [Mass fraction] 10.2 % High 4 - 5.6 % [facility] Interpretation and review of laboratory results Abnormal [facility] Normal: 4.0% - 5.6% Increased risk for diabetes: 5.7% - 6.4% Diabetes: >= 6.5% Pediatrics: No established reference range Estimated average glucose: 68-114 mg/dL [facility] Magnesiumon 06-04-2020 Interpretation and review of laboratory results Normal [facility] Magnesium [Mass/Vol] 1.6 mg/dL 1.6 - 2 .4 mg/dL [facility] POC Glucoseon 06-04-2020 Glucose [Mass/Vol] 79 mg/dL 65 - 99 mg/dL [facility] Interpretation and review of laboratory results Normal [facility] Glucose [Mass/Vol] 108 mg/dL High 65 - 99 mg/dL [facility] Interpretation and review of laboratory results Abnormal [facility] Glucose [Mass/Vol] 134 mg/dL High 65 - 99 mg/dL [facility] Interpretation and review of laboratory results Abnormal [facility] Glucose [Mass/Vol] 118 mg/dL High 65 - 99 mg/dL [facility] Interpretation and review of laboratory results Abnormal [facility] Reflex Lactic Acid, Plasmaon 06-04-2020 Interpretation and review of laboratory results Abnormal [facility] Lactate [Moles/Vol] 2.1 mmol/L High 0.6 - 2 mmol/L [facility] CBC WITH AUTO DIFFERENTIALon 06-03-2020 Basophils (Bld) [#/Vol] 0.06 10*3/uL [facility] Basophils/100 WBC (Bld) 0.8 % [facility] Eosinophils (Bld) [#/Vol] 0.11 10*3/uL [facility] Eosinophils/100 WBC (Bld) 1.4 % [facility] Erythrocyte distribution width (RBC) [Entitic vol] 12.3 % 11.6 - 14.8 % [facility] Hematocrit (Bld) [Volume fraction] 38.8 % 36 - 46 % [facility] Hemoglobin (Bld) [Mass/Vol] 13.1 g/dL 12 - 16 g/dL [facility] Immature granulocytes (Bld) [#/Vol] 0.02 10*3/uL [facility] Immature granulocytes/100 WBC (Bld) 0.30 % [facility] Comment on above: The IG parameter is the percentage of metamyelocytes, myelocytes and promyelocytes. An immature granulocyte count (IG) of 1% or more suggests the possibility of infection, an IG count of 3% is very likely related to an infection. Lymphocytes (Bld) [#/Vol] 1.86 10*3/uL [facility] Lymphocytes/100 WBC (Bld) 24.1 % [facility] MCH (RBC) [Entitic mass] 30.8 pg 26 - 34 pg [facility] MCHC (RBC) [Mass/Vol] 33.8 g/dL 31 - 3 7 g/dL [facility] MCV (RBC) [Entitic vol] 91.1 fL 80 - 100 fL [facility] Monocytes (Bld) [#/Vol] 0.37 10*3/uL [facility] Monocytes/100 WBC (Bld) 4.8 % [facility] Neutrophils (Bld) [#/Vol] 5.29 10*3/uL [facility] Neutrophils/100 WBC (Bld) 68.6 % [facility] Nucleated RBC (Bld) [#/Vol] 0.00 10*3/uL [facility] Nucleated RBC/100 WBC (Bld) [Ratio] 0.0 % [facility] Platelet mean volume (Bld) [Entitic vol] 9.7 fL 9.4 - 12.4 fL [facility] Platelets (Bld) [#/Vol] 253 10*3/uL [facility] RBC (Bld) [#/Vol] 4.26 10*6/uL [facility] eah WBC (Bld) [#/Vol] 7.71 10*3/uL [facility] COVID-19, Molecularon 2020 Interpretation and review of laboratory results Normal [facility] SARS-CoV-2 Not Detected Not Detected [facility] Comment on above: This test was perfor [...] at the following links: For Healthcare Providers: https://www.fda.gov/media/314317/download For Patients: https://www.fda.gov/media/715587/download CRITICAL CAREon 06-03-2020 Joel Pickett 06/03/2020 4:35 [...] radiographic studies and re-evaluation of patient's condition. [facility] CT Foot Left Without Contras ton 06-03-2020 1. There appears to be a small amount of soft tissue swelling along the plantar and medial aspect of the 1st toe which may be due to a cellulitis, but this is nonspecific. There is no CT evidence of osteomyelitis. 2. There are degenerative and postsurgical changes of the ankle as described above. Workstation ID: [id number] [facility] Interface, Rad In Fu ji Speechq - [...] ankle as described above. Workstation ID: [id number] [facility] EXAMINATION: CT scan left foot and ankle [...] 11 mmol/L 10 - 2 0 mmol/L [facility] Chloride [Moles/Vol] 109 mmol/L High 98 - 10 8 mmol/L [facility] Creatinine [Mass/Vol] 1.28 mg/dL High 0.40 - 1.10 [facility] GFR/1.73 sq M predicted among non-blacks MDRD (S/P/Bld) [Vol rate/Area] The eGFR should be used for monitoring renal function only and not for medication dosing. [facility] GFR/1.73 sq M.predicted CKD-EPI (S/P/Bld) [Vol rate/Area] 51 Low >=60 mL/min/1.73 m2 [facility] Glucose [Mass/Vol] 288 mg/dL High 65 - 99 mg/dL [facility] HCO3 [Moles/Vol] 27 mmol/L 21 - 32 mmol/L [facility] Interpretation and review of laboratory results Abnormal [facility] Potassium [Moles/Vol] 3.9 mmol/L 3.5 - 5.1 mmol/L [facility] Sodium [Moles/Vol] 143 mmol/L 135 - 145 mmol/L [facility] Urea nitrogen [Mass/Vol] 16 mg/dL 8 - 25 mg/dL [facility] Urea nitrogen/Creatinine [Mass ratio] 12.5 mg/mg [facility] Lactic Acid, Plasmaon 2020 Interpretation and review of laboratory results Abnormal [facility] Lactate [Moles/Vol] 2.6 mmol/L High 0.6 - 2 mmol/L [facility] Otheron 06-03-2020 Extra Tube Hold for add-ons. [facility] Comment on above: Auto resulted. POC Glucoseon 06-03-2020 Glucose [Mass/Vol] 288 mg/dL High 65 - 99 mg/dL [facility] Interpretation and review of laboratory results Abnormal [facility] CBC W/DIFFon 08-10-2019 ABS BASOPHILS 0.1 10*3/uL Normal 0.0-0.2 [facility] Comment on above: Performed By: #### 5 0103 #### [facility] [address] [place] [address], [facility] ABS IMM GRANS 0.0 10*3/uL Normal 0.0-0.2 [facility] Comment on above: Performed By: #### 5 0103 #### [facility] [address] [place] [address], [facility] ABS NEUTROPHILS 7.5 10*3/uL Normal 1.6-7.6 [facility] Comment on above: Performed By: #### 5 0103 #### [facility] [address] [place] [address], [facility] Basophils/100 WBC (Bld) 0.7 % Normal 0.0-1.0 [facility] Comment on above: Performed By: #### 0103 #### [facility] [address] [place] [address], [facility] Eosinophils (Bld) [#/Vol] 0.2 10*3/uL Normal 0.0-0.5 [facility] Comment on above: Performed By: #### 5 0103 #### [facility] [address] [place] [address], [facility] Eosinophils/100 WBC (Bld) 1.5 % Normal 0.0-6.0 [facility] Comment on above: Performed By: #### 5 0103 #### [facility] [address] [facility] [place] [address], [facility] Erythrocyte distribution width (RBC) [Ratio] 12.0 % Normal 11.5-15.0 [facility] Comment on above: Performed By: #### 5 3 #### [facility] [address] [place] [address], [facility] Hematocrit (Bld) [Volume fraction] 40.4 % Normal 36.0-45.0 [facility] Comment on above: Performed By: #### 5 3 #### [facility] [address] [place] [address], [facility] Hemoglobin (Bld) [Mass/Vol] 13.5 g/dL Normal 12.0-15.0 [facility] Comment on above: Performed By: #### 5 3 #### [facility] [address] IMMATURE GRANS 0.4 % Normal 0.0-1.0 [facility] Comment on above: Performed By: #### 5 102 #### [facility] [address] Lymphocytes (Bld) [#/Vol] 2.3 10*3/uL Normal 1.2-4.0 [facility] Comment on above: Performed By: #### 3 #### [facility] [address] Lymphocytes/100 WBC (Bld) 21.5 % Normal 20.0-45.0 [facility] Comment on above: Performed By: #### 102 #### [facility] [address] MCH (RBC) [Entitic mass] 29.9 pg Normal 27.0-33.0 [facility] Comment on above: Performed By: #### 3 #### [facility] [address] MCHC (RBC) [Mass/Vol] 33.4 g/dL Normal 32.0-35.0 [facility] Comment on above: Performed By: #### 3 #### [facility] [address] MCV (RBC) [Entitic vol] 89.6 fL Normal 82.0-98.0 [facility] Comment on above: Performed By: #### 102 #### [facility] [address] [place] [address], [facility] Monocytes (Bld) [#/Vol] 0.6 10*3/uL Normal 0.1-1.0 [facility] Comment on above: Performed By: #### 3 #### [facility] [address] [place] [id number], [facility] MONOS 5.6 % Normal 5.0-12.0 [facility] Comment on above: Performed By: #### 102 #### [facility] [address] [place] [address], [facility] Neutrophils/100 WBC (Bld) 70.3 % Normal 40.0-72.0 [facility] Comment on above: Performed By: #### 102 #### [facility] [address] [place] [address], [facility] Nucleated RBC/100 WBC (Bld) [Ratio] 0 % Normal 0-0 [facility] Comment on above: Performed By: #### 102 #### [facility] [address] [facility] [place] [address], [facility] PLAT CNT 422 10*3/uL High 150-400 [facility] Comment on above: Performed By: #### 102 #### [facility] [address] [facility] [place] [place] [address], [facility] RBC (Bld) [#/Vol] 4.51 10*6/uL Normal 3.80-5.00 [facility] Comment on above: Performed By: #### 102 #### [facility] [address] [facility] [place] [id number], [facility] WBC (Bld) [#/Vol] 10.63 10*3/uL High 4.00-10.60 [facility] Comment on above: Performed By: #### 3 #### [facility] [address] [facility] [place] [address], [facility] COMP METABOLIC PANELon 08-09 Albumin [Mass/Vol] 4.2 g/dL Normal 3.5-5.7 [facility] Comment on above: Performed By: #### 0 0121 #### [facility] [address] [facility] [place] [place] [address], [place] ALKALINE PHOSPH 90 IU/L Normal 34-104 [facility] Comment on above: Performed By: #### 0 0121 #### [facility] [address] [place] [address], [place] ALT [Catalytic activity/Vol] 6 U/L Low 7-52 [facility] Comment on above: Performed By: #### 0 0121 #### [facility] [address] [place] [address], [place] AST [Catalytic activity/Vol] 9 U/L Low 13-39 [facility] Comment on above: Performed By: #### 0 0121 #### [facility] [address] [place] [address], [place] Bilirubin [Mass/Vol] 0.3 mg/dL Normal 0.3-1.0 [facility] Comment on above: Performed By: #### 0 0121 #### [facility] [address] [place] [address], [place] Calcium [Mass/Vol] 9.4 mg/dL Normal 8.6-10.3 [facility] Comment on above: Performed By: #### 0 0121 #### [facility] [address] [place] [address], [place] Chloride [Moles/Vol] 104 mmol/L Normal 98-107 [facility] Comment on above: Performed By: #### 0 0121 #### [facility] [address] [place] [address], [place] CO2 [Moles/Vol] 25 mmol/L Normal 21-31 [facility] Comment on above: Performed By: #### 0 0121 #### [facility] [address] [place] [address], [place] Creatinine [Mass/Vol] 0.89 mg/dL Normal 0.60-1.20 [facility] Comment on above: Performed By: #### 0 0121 #### [facility] [address] [place] [address], [place] GFR/1.73 sq M predicted among blacks MDRD (S/P/Bld) [Vol rate/Area] mL/min/{1.73_m2} Normal >60 [facility] Comment on above: Performed By: #### 0 0121 #### [facility] [address] [place] [address], [place] GFR/1.73 sq M predicted among non-blacks MDRD (S/P/Bld) [Vol rate/Area] mL/min/{1.73_m2} Normal >60 [facility] Comment on above: Performed By: #### 0 0121 #### [facility] [address] [place] [address], [place] Glucose [Mass/Vol] 155 mg/dL High 70-100 [facility] Comment on above: Performed By: #### 0 0121 #### [facility] [address] [place] [address], [place] Potassium [Moles/Vol] 4.3 mmol/L Normal 3.5-5.1 [facility] Comment on above: Performed By: #### 0 0121 #### [facility] [address] [place] [address], [place] Protein [Mass/Vol] 7.2 g/dL Normal 6.0-8.3 [facility] Comment on above: Performed By: #### 0 0121 #### [facility] [address] [place] [address], [place] Sodium [Moles/Vol] 138 mmol/L Normal 136-145 [facility] Comment on above: Performed By: #### 0 0121 #### [facility] [address] [place] [address], [place] Urea nitrogen [Mass/Vol] 24 mg/dL Normal 7-25 [facility] Comment on above: Performed By: #### 0 0121 #### [address] LUMBAR SPINE WO CONTRASTo n 08-10-2019 CT LUMBAR SPINE WO CONTRAST [facility] Department of Radiology [address] [place] [id number] Patient Name: ADDIE JEAN BAPTISTE : 1975 Sex: F Age: Race: White Pt. Location: [facility] Patient Status: E Ordered Date: 08/10/2019 7:30:00 PM Completed Date: 08/10/2019 08:04 PM Requesting Provider: AMBROCIO CHAVEZ Attending Provider: AMBROCIO CHAVEZ Report Copy To: Signs & Symptoms: [...] achievable Electronically signed: Carie Sanchez. Transcribed by: [email or web address], User Resident: Electronically Signed by: CARIE SANCHEZ @ 08/10/2019 08:35 PM Normal [facility] Comment on above: Order Comment: Spina l Stenosis KEPPRA ILon 08-10-2019 [place] Normal [facility] Comment on above: Result Comment: Test Performed by [facility] [address] [place] [address] - Released 08/10/2019 22:25 KEPPRA 10 ug/mL Normal [facility] Comment on above: Result Comment: A [...] and toxicity is not known. LITHIUMon 08-10-2019 Powers [Moles/Vol] Normal [facility] Comment on above: Result Comment: Test Performed by [facility] [address] [place] [address] - Released 08/10/2019 22:35 Result changed by IF on 08/10/2019 22:35. The previous value was Test Performed by [facility] [address] [place] [address] [phone] Powers [Moles/Vol] mmol/L Low 0.6-1.2 [facility] POC URINE PREGNANCYon 2019 Beta HCG ( test) Ql (U) Negative Normal NEGATIVE [facility] Comment on above: Result Comment: Perf ormed in Emergency Department. Performed By: #### 8 4140 #### [facility] [address] TOX PANEL URINEon 08-10-2019 50 THC Negative Normal NEGATIVE [facility] Comment on above: Performed By: #### 3 1079 #### [facility] [address] [place] [address], [facility] BARBITURATES Negative Normal NEGATIVE [facility] Comment on above: Performed By: #### 3 1079 #### [facility] [address] [place] [address], [facility] Benzodiazepines Ql (U) Negative Normal NEGATIVE [facility] Comment on above: Performed By: #### 3 1079 #### [facility] [address] [place] [address], [facility] Cocaine Ql (U) Negative Normal NEGATIVE [facility] Comment on above: Performed By: #### 3 1079 #### [facility] [address] [place] [address], [facility] Methadone Ql (U) Negative Normal NEGATIVE [facility] Comment on above: Performed By: #### 3 1079 #### [facility] [address] [place] [address], [facility] MONO AMPHET Negative Normal NEGATIVE [facility] Comment on above: Performed By: #### 3 1079 #### [facility] [address] [place] [address], [facility] Opiates Ql (U) Negative Normal NEGATIVE [facility] Comment on above: Performed By: #### 3 1079 #### [facility] [address] [place] [address], [facility] Phencyclidine Ql (U) Negative Normal NEGATIVE [facility] Comment on above: Performed By: #### 3 1079 #### [facility] [address] [place] [address], [facility] PROPOXYPHENE Negative Normal NEGATIVE [facility] Comment on above: Performed By: #### 3 1079 #### [facility] [address] [place] [address], [facility] TRICYCLICS Positive Abnormal NEGATIVE [facility] Comment on above: Performed By: #### 3 1079 #### [facility] [address] [place] [address], [facility] VALPROIC ACIDon 08-10-2019 VALPROIC ACID (DEPAKOTE) 57 mcg/mL Low 60-100 [facility] Comment on above: Performed By: #### 4 6956 #### [facility] [address] CHEST 2 VIEW PA AND LATon CHEST 2 VIEW PA AND LAT Patient Name: ORGAN, ADDIE STUDY: TH CHEST 2 VIEW PA AND LAT; 04/07/2019 7:13 am INDICATION: Pneumothorax. COMPARISON: 04/06/2019 ACCESSION NUMBER(S): [id number] ORDERING CLINICIAN: RADHA STEELE FINDINGS: There is [...] Electronically signed by: MK HERNANDEZ MD Normal [facility] Discharge [id number] Discharge Profile2 Discharge Orders: Problem List: [...] dual chamber ICD upgrade currently with a MuseStorm [id number] Evera MRI XT DR device. See full [...] 3 month follow up with EP in [facility] office, CXR, and device check. Provider FINAL REVIEW of Orders: Final Review: Final Review of Medication Reconciliation and Orders Completedby NEURO PSYCH SALES SPECIALIST Reviewing ProviderMARY Baez at 07-Apr-2019 13:43:42 Appointments: Follow-Up Appointment 01: Physician/Dept/Kyle Sevilla office Reason for Referralwound check Scheduled Date/[id number] 02:30 Phone [phone] Follow-Up Appointment 02[facility] Reason for Referralchest X-Ray Scheduled Date/[id number]-6697 02:15 Phone [phone] Follow-Up Appointment 03: [facility] Reason for Referraldevice check Scheduled Date/[id number]-Czt-3837 03:00 Phone [phone] Follow-Up Appointment 04: Physician/Dept/ServiceDr. Noble Scheduled Date/Qnyf84-Ngg-8973 03:40 Phone [phone] Electronic Signatures: Radha Steele (NEURO PSYCH SALES SPECIALIST-SENIOR COGNOS DEVELOPER) (Signed 07-Apr-2019 13:51) Authored: Discharge Orders, Hospital Course (Home Care/Gold Form), Provider FINAL REVIEW of Orders, Gold Form - Chili Powder Mixer Summary Ida Brand (CN) (Signed 07-Apr-2019 13:50) Authored: Appointments Last Updated: 07-Apr-2019 13:51 by Radha Steele (NEURO PSYCH SALES SPECIALIST-SENIOR COGNOS DEVELOPER) Normal [facility] GLUCOSE-POCTon 04-07-2019 Glucose [Mass/Vol] 150 mg/dL High 74 - 99 [facility] Comment on above: Performed By: #### C BC #### [address] [address] Glucose [Mass/Vol] 205 mg/dL High 74 - 99 [facility] Comment on above: Performed By: #### C BC #### [address] [address] Glucose [Mass/Vol] 365 mg/dL High 74 - 99 [facility] Comment on above: Performed By: #### C BC #### [address] [address] BASIC METABOLIC PANELon 03-25 Anion gap [Moles/Vol] 17 mmol/L Normal 10 - 20 [facility] Comment on above: Performed By: #### B MP #### [address] [address] Calcium [Mass/Vol] 8.8 mg/dL Normal 8.6 - 10.3 [facility] Comment on above: Performed By: #### B MP #### [address] [address] Chloride [Moles/Vol] 97 mmol/L Low 98 - 107 [facility] Comment on above: Performed By: #### B MP #### [address] [address] Creatinine [Mass/Vol] 0.80 mg/dL Normal 0.50 - 1.05 [facility] Comment on above: Performed By: #### B MP #### [address] [address] GFR- AM. >60 Normal >60 [facility] Comment on above: Result Comment: CALC ULATIONS OF ESTIMATED GFR ARE PERFORMED USING THE MDRD STUDY EQUATION FOR THE IDMS-TRACEABLE CREATININE METHODS. CLIN CHEM 2007;53:766-72 Performed By: #### B MP #### [address] [address] GFR-NON AM. >60 Normal >60 [facility] Comment on above: Performed By: #### B MP #### [address] [address] Glucose [Mass/Vol] 429 mg/dL High 74 - 99 [facility] Comment on above: Performed By: #### B MP #### [address] [address] HCO3 (Bld) [Moles/Vol] 21 mmol/L Normal 21 - 32 [facility] Comment on above: Performed By: #### B MP #### [address] [address] Potassium [Moles/Vol] 3.8 mmol/L Normal 3.5 - 5.3 [facility] Comment on above: Performed By: #### B MP #### [address] [address] Sodium [Moles/Vol] 131 mmol/L Low 136 - 145 [facility] Comment on above: Performed By: #### B MP #### [address] [address] Urea nitrogen [Mass/Vol] 16 mg/dL Normal 6 - 23 [facility] Comment on above: Performed By: #### B MP #### [address] [address] CBCon 04-06-2019 Erythrocyte distribution width (RBC) [Ratio] 11.7 % Normal 11.5 - 14.5 [facility] Comment on above: Performed By: #### C BC #### [address] [address] Hematocrit (Bld) [Volume fraction] 40.2 % Normal 36.0 - 46.0 [facility] Comment on above: Performed By: #### C BC #### [address] [address] Hemoglobin (Bld) [Mass/Vol] 13.9 g/dL Normal 12.0 - 16.0 [facility] Comment on above: Performed By: #### C BC #### [address] [address] MCHC (RBC) [Mass/Vol] 34.6 g/dL Normal 32.0 - 36.0 [facility] Comment on above: Performed By: #### C BC #### [address] [address] MCV (RBC) [Entitic vol] 88 fL Normal 80 - 100 [facility] Comment on above: Performed By: #### C BC #### [address] [address] Platelets (Bld) [#/Vol] 306 10*3/uL Normal 150 - 450 [facility] Comment on above: Performed By: #### C BC #### [address] [address] RBC (Bld) [#/Vol] 4.57 x10E12/L Normal 4.00 - 5.20 [facility] Comment on above: Performed By: #### C BC #### [address] [address] WBC (Bld) [#/Vol] 9.4 10*3/uL Normal 4.4 - 11.3 [facility] Comment on above: Performed By: #### C BC #### [address] [address] CHEST 2 VIEW PA AND LATon CHEST 2 VIEW PA AND LAT Patient Name: ORGAN, ADDIE STUDY: TH CHEST 2 VIEW PA AND LAT; 04/06/2019 8:05 am INDICATION: SVT, preop implant. COMPARISON: None. ACCESSION NUMBER(S): [id number] ORDERING CLINICIAN: ROSALIA NOBLE FINDINGS: CARDIOMEDIASTINAL SILHOUETTE: [...] Electronically signed by: SHAMEKA PEREZ MD Normal [facility] COAGULATION SCREENon 019 aPTT Coag (Bld) [Time] 29 s Normal 28 - 38 [facility] Comment on above: Result Comment: THE APTT IS NO LONGER USED FOR MONITORING UNFRACTIONATED HEPARIN THERAPY. FOR MONITORING HEPARIN THERAPY, USE THE HEPARIN ASSAY. Performed By: #### C OAGS #### [address] [address] INR Coag (PPP) [Relative time] 1.0 {INR} Normal 0.9 - 1.1 [facility] Comment on above: Performed By: #### C OAGS #### [address] [address] PT Coag (PPP) [Time] 10.8 s Normal 9.7 - 12.7 [facility] Comment on above: Performed By: #### C OAGS #### [address] [address] Daily Progress Note-Electrop hysiologyon 04-06-2019 Daily Progress [...] of infection. The patient should call the credit and loan collections supervisor immediately if symptoms recur, or for any problems. The patient and mother(message left on phone with HIPPA consent) have been instructed accordingly. 2.Follow up with [facility] office in seven days for post-operative wound assessment. 3.Follow up with Device Clinic in twelve weeks for routine device analysis and reprogramming if necessary. Remote monitoring will be instituted and released from [facility] to [facility] as per patient request. Procedures: Complete electrophysiologic [...] was placed. 11.A dual-chamber cardioverter defibrillator (Med [id number] #[id number]) was attached to the leads and implanted. [...] 6 Fr high RA, CS Bpst Sci [place] new access Right femoral vein 6 Fr His-bundle (right side) Eddy Sci Vikingnew access Right femoral vein 6 Fr RV apex, RVOT [place] [facility] [place] new access Complications: The patient tolerated the procedure without any complications or incident. EBL 0 cc Specimens obtained: No Prepared and signed by. Electronic Signatures: Rosalia Noble) (Signed 06-Apr-2019 16:32) Authored: Service, Objective Data, Assessment and Plan, Signature/Cosignature/Att estation Last Updated: 06-Apr-2019 16:32 by Rosalia Noble) Normal [facility] GLUCOSE-POCTon 04-06-2019 Glucose [Mass/Vol] 409 mg/dL High 74 - 99 [facility] Comment on above: Performed By: #### C BC #### [address] [address] Glucose [Mass/Vol] 136 mg/dL High 74 - 99 [facility] Comment on above: Performed By: #### C BC #### [address] [address] Glucose [Mass/Vol] 167 mg/dL High 74 - 99 [facility] Comment on above: Performed By: #### C BC #### [address] [address] Glucose [Mass/Vol] 218 mg/dL High 74 - 99 [facility] Comment on above: Performed By: #### C BC #### [address] [address] Glucose [Mass/Vol] 338 mg/dL High 74 - 99 [facility] Comment on above: Performed By: #### G EMELY #### [facility] [address] [place] [address] Glucose [Mass/Vol] 415 mg/dL High 74 - 99 [facility] Comment on above: Performed By: #### G EMELY #### [facility] [address] [place] [address] HCG,SERUM QUALITATIVEon 03-25 HCG,SERUM QUALITATIVE Negative Normal Negative [facility] Comment on above: Performed By: #### H CGS #### [address] [address] Patient Profile - Preop v2on 04-06-2019 Patient Profile - Preop v2 Profile: Initial Info: How to be AddressedCathy Spoken Language PreferredEnglish Source of Informationpatient; family Are you currently using the Personal Electronic Health Record or [employer] Are you interested in learning more about [employer] for the management of your healthnot at this time Stated Reason for AdmissionEPS Primary Contact Name and NumberSharon Organ [phone] Limitations on Visitors/Phone Callsnone Patient Belongingsremains with patient Patient Belongings Remaining with Patientcell phone/electronics; clothing Medications Brought to Hospitalyes General Health: Weight in kg91.1 kilogram(s) Weight in sua411.8 pound(s) Weight Methodstated Scale Typestanding Height in [...] Transitionnone Lives Withspouse Living Arrangementshouse [facility]ticipated [facility] Substance: Current or Former Substance Use never: [...] Learning Preferencesindividual instruction Cultural Considerationsnone Developmental Considerationsnone Voodoo Considerationsnone Other learner availableno [place] RiskPatient location auto qualifies him/her for HIGH RISK. Are there any cultural, spiritual, scientologist practices/values/needs that are important for us to knowno Do you want a visit/item from [facility] Would you like your Rice Drier/Channel Marketing Manager notifiedno Pain Scalenumerical 0-10 Pain Scale Educationteaching [...] 06-Apr-2019 07:39 by Kristi Soriano (JAEL) Normal [facility] Preop Checkliston 04-06-2019 Preop Checklist Preop Checklist: Preop Checklist: Arrival [id number] Arrival Time06:38 Temperature C36.1 degrees C Temperature F96.9 degrees F Heart Rate60 beats per minute Respiratory Rate18 breath per minute Blood Pressure Qrdsrzxv27 mm/Hg Blood Pressure Jnxbjwmlr05 mm/Hg NPO [id number] 23:00 ID Band Onyes Allergy Bandyes H&P [...] 06-Apr-2019 07:42 by Kristi Soriano (JAEL) Normal [facility] UA MICROSCOPICon 04-06-2019 BACTERIA 1+ /HPF Abnormal [facility] Comment on above: Performed By: #### C BC #### [address] [address] MUCUS 1+ /LPF Normal [facility] Comment on above: Performed By: #### C BC #### [address] [address] RBC 3 /HPF Normal 0-5 [facility] Comment on above: Performed By: #### C BC #### [address] [address] SQUAMOUS EPITH. CELLS 3 /HPF Normal [facility] Comment on above: Performed By: #### C BC #### [address] [address] WBC 8 /HPF Abnormal 0-5 [facility] Comment on above: Performed By: #### C BC #### [address] [address] URINALYSISon 04-06-2019 Appearance (U) CLEAR Normal CLEAR [facility] Comment on above: Performed By: #### U A #### [address] [address] Bilirubin (U) [Mass/Vol] Negative Normal NEGATIVE [facility] Comment on above: Performed By: #### U A #### [address] [address] BLOOD Negative Normal NEGATIVE [facility] Comment on above: Performed By: #### U A #### [address] [address] Color (U) YELLOW Normal STRAW,YELLO W [facility] Comment on above: Performed By: #### U A #### [address] [address] Glucose [Mass/Vol] >=500 (3+) Abnormal NEGATIVE [facility] Comment on above: Performed By: #### U A #### [address] [address] Ketones Ql (U) Negative Normal NEGATIVE [facility] Comment on above: Performed By: #### U A #### [address] [address] Leukocyte esterase Test strip Ql (U) TRACE Abnormal NEGATIVE [facility] Comment on above: Performed By: #### U A #### [address] [address] Nitrite Ql (U) Positive Abnormal NEGATIVE [facility] Comment on above: Performed By: #### U A #### [address] [address] pH (Bld) 5.0 Normal 5.0 - 8.0 [facility] Comment on above: Performed By: #### U A #### [address] [address] Protein (U) [Mass/Vol] Negative Normal NEGATIVE [facility] Comment on above: Performed By: #### U A #### [address] [address] Specific gravity (U) [Rel density] 1.031 Normal 1.005 - 1.035 [facility] Comment on above: Performed By: #### U A #### [facility] [address] [place] [address] Urobilinogen Qn (U) <2.0 Normal 0.0 - 1.9 [facility] Comment on above: Performed By: #### U A #### [facility] [address] [place] [address] Laboratory Studieson 019 Calcium [Mass/Vol] 9.8 mg/dL 8.2-10.2 [facility] Chloride [Moles/Vol] 98 mmol/L 95-114 [facility] CO2 [Moles/Vol] 19.7 mmol/L Low 22.0-30.0 [facility] Creatinine [Mass/Vol] 0.88 mg/dL 0.44-1.03 [facility] GFR/1.73 sq M predicted among non-blacks MDRD (S/P/Bld) [Vol rate/Area] mL/min/{1.73_m2} [facility] GFR/1.73 sq M.predicted MDRD (S/P/Bld) [Vol rate/Area] mL/min/{1.73_m2} [facility] Comment on above: GFR estimated refere nce range: According to KDOQI guidelines, <60 ml/min/1.73m2 is sufficient to diagnose a patient with chronic kidney disease. Glucose [Mass/Vol] 436 mg/dL High 70-100 [facility] Comment on above: ADA recommended refe rence range Random Glucose Reference Range is dependent on time and content of last meal. Glucose of more than 200 mg/dL in a nonstressed, ambulatory subject supports the diagnosis of Diabetes Mellitus. Pharmacy Creatinine Clearance (Chem N/A [facility] Potassium [Moles/Vol] 4.3 mmol/L 3.5-5.1 [facility] Sodium [Moles/Vol] 134 mmol/L Low 136-146 [facility] Urea nitrogen [Mass/Vol] 13 mg/dL 9- [facility] Laboratory Studieson 019 Glucose [Mass/Vol] 148 mg/dL [facility] Comment on above: Random Glucose Refer ence Range is dependent on time and content of last meal. Glucose of more than 200 mg/dL in a nonstressed, ambulatory subject supports the diagnosis of Diabetes Mellitus. Basophils (Bld) [#/Vol] 0.1 10*3/uL 0.0-0.2 [facility] Basophils/100 WBC (Bld) 0.4 % [facility] Eosinophils (Bld) [#/Vol] 0.2 10*3/uL 0.0-0.45 [facility] Eosinophils/100 WBC (Bld) 1.6 % [facility] Erythrocyte distribution width (RBC) [Ratio] 12.7 % 11.9-15.3 [facility] Hematocrit (Bld) [Volume fraction] 33.9 % Low 34.0-46.4 [facility] Hemoglobin (Bld) [Mass/Vol] 11.5 g/dL Low 11.8-15.4 [facility] Lymphocytes (Bld) [#/Vol] 3.2 10*3/uL 1.00-4.8 [facility] Lymphocytes/100 WBC (Bld) 25.2 % [facility] MCH (RBC) [Entitic mass] 31.2 pg 24.7-34.3 [facility] MCHC (RBC) [Mass/Vol] 34.0 g/dL 32.0-35.0 [facility] MCV (RBC) [Entitic vol] 92.0 fL 80-100 [facility] Monocytes (Bld) [#/Vol] 0.6 10*3/uL 0.0-0.8 [facility] Monocytes/100 WBC (Bld) 4.3 % [facility] Neutrophils (Bld) [#/Vol] 8.7 10*3/uL High 1.8-7.7 [facility] Neutrophils/100 WBC (Bld) 68.5 % [facility] Nucleated RBC/100 WBC (Bld) [Ratio] 0.0 % 0-0.5 [facility] Platelet mean volume (Bld) [Entitic vol] 7.3 fL 6.3-10.7 [facility] Platelets (Bld) [#/Vol] 297 10*3/uL 150-450 [facility] RBC (Bld) [#/Vol] 3.68 10*6/uL 3.60-5.00 [facility] WBC (Bld) [#/Vol] 12.7 10*3/uL High 4.5-11.0 [facility] Glucose [Mass/Vol] Glu2: cleaned meter [facility] Laboratory Studieson 019 Glucose [Mass/Vol] Will notify dr/rn [facility] Albumin [Mass/Vol] 3.0 g/dL Low 3.2-5.5 [facility] Albumin/Globulin [Mass ratio] 1.1 {ratio} [facility] ALP [Catalytic activity/Vol] 68 U/L 32-92 [facility] ALT No additional P-5'-P [Catalytic activity/Vol] 12 U/L 10-60 [facility] AST [Catalytic activity/Vol] 17 U/L 10-42 [facility] Bilirubin [Mass/Vol] 0.6 mg/dL 0.3-1.2 [facility] Cholesterol [Mass/Vol] 123 mg/dL Low 140-200 [facility] Comment on above: Chol less than 200 m g/dl low risk Chol 201-239 mg/dl borderline risk Chol 240 mg/dl and greater high risk Cholesterol in HDL [Mass/Vol] 51 mg/dL 35-85 [facility] Comment on above: HDL CHOL ATP-III CLA SSIFICATION Cardiovascular Risk HDL > or equal to 60 mg/dL LOW HDL < 40 mg/dL HIGH Cholesterol in LDL [Mass/Vol] 57 mg/dL 0-100 [facility] Comment on above: LDL ATP III CLASSIFI CATION LDL less than 100 mg/dL Optimal LDL 100-129 mg/dL Near or above optimal LDL 130-159 mg/dL Borderline high LDL 160-189 mg/dL High LDL greater than 189 mg/dL Very high Cholesterol in VLDL [Mass/Vol] 15 mg/dL [facility] Cholesterol.total/Cho lesterol in HDL [Mass ratio] 2.4 {ratio} [facility] Globulin (S) [Mass/Vol] 2.7 g/dL [facility] Protein [Mass/Vol] 5.7 g/dL Low 6.1-7.9 [facility] Triglyceride [Mass/Vol] 75 mg/dL 35-149 [facility] Comment on above: TRIG ATP III CLASSIF ICATION TRIG less than 150 mg/dL Normal TRIG 150-199 mg/dL Borderline high TRIG 200-500 mg/dL High TRIG greater than 500 mg/dL Very high Standard traceable to the Center for Disease Conrtrol and Prevention (CDC) test method. Laboratory Studieson 019 Lactate [Moles/Vol] 1.4 mmol/L [facility] CK [Catalytic activity/Vol] 35 U/L 22-269 [facility] INR Coag (PPP) [Relative time] 1.0 {INR} [facility] Comment on above: INR Therapeutic Rang [...] - 4.5 Prolactin [Mass/Vol] 6.20 ng/mL 3.34-26.72 [facility] PT Coag (PPP) [Time] 11.0 s 9.0-12.9 [facility] Troponin I.cardiac [Mass/Vol] ng/mL 0-0.02 [facility] Comment on above: KEISHA NM Cut off value > or equal to 0.03 ng/mL in conjunction with clinical conditions of myocardial infarction. (www.escardio.org/guidelines) Amphetamines Ql (U) Negative [facility] Barbiturates Ql (U) Negative [facility] Benzodiazepines Ql (U) Negative [facility] Bilirubin Ql (U) Negative [facility] Cannabinoids Screen Ql (U) Negative [facility] Comment on above: These are unconfirme d results and should not be used for legal purposes. Drug Cut-Off Concentration: AMPH 1000 ng/mL DIANE 200 ng/mL ALICE 200 ng/mL COCM 300 ng/mL OP 300 ng/mL PCP 25 ng/mL THC 20 ng/mL Clarity Refractometry automated (U) Clear [facility] Cocaine Ql (U) Negative [facility] Color (U) Yellow [facility] Glucose Auto test strip (U) [Mass/Vol] 500 mg/dL High [facility] HCG ( test) Ql (U) Negative [facility] Hemoglobin Auto test strip Ql (U) Negative [facility] Ketones (U) [Mass/Vol] Negative [facility] Leukocyte esterase Auto test strip Ql (U) Negative [facility] Nitrite Ql (U) Negative [facility] Opiates Ql (U) Negative [facility] pH (U) 6.0 [pH] 5.0-9.0 [facility] Phencyclidine Ql (U) Negative [facility] Protein (U) [Mass/Vol] Negative [facility] Specific gravity (U) [Rel density] 1.020 1.001-1.030 [facility] Urobilinogen (U) [Mass/Vol] Normal mg/dL [facility] Microbiology Studieson 07-16 Staphylococcus aureus Staphylococcus aureus [facility] BASIC METABOLIC PANELon Glucose mass conc 565 mg/dL Critically high 70-100 [facility] Comment on above: Order Comment: GARCIA D ER 06/25/2018, 15:09, KJD, Called with verbal read back by Romeo Castillo. Result Comment: RESU LTS REPEATED AND CONFIRMED Performed By: #### B ASIC #### [address] [address] Anion gap molar conc 15.6 mmol/L Normal 10-14 [facility] Comment on above: Order Comment: GARCIA D ER 06/25/2018, 15:09, KJD, Called with verbal read back by Romeo Castillo. Performed By: #### B ASIC #### [address] [address] Calcium mass conc 9.8 mg/dL Normal 8.4-10.2 [facility] Comment on above: Order Comment: GARCIA D ER 06/25/2018, 15:09, KJD, Called with verbal read back by Romeo Castillo. Performed By: #### B ASIC #### [address] [address] CO2 molar conc 25.0 mm/Hg Normal 22.0-30.0 [facility] Comment on above: Order Comment: GARCIA D ER 06/25/2018, 15:09, KJD, Called with verbal read back by Romeo Castillo. Performed By: #### B ASIC #### [address] [address] Urea nitrogen mass conc 11 mg/dL Normal 7-22 [facility] Comment on above: Order Comment: GARCIA D ER 06/25/2018, 15:09, KJD, Called with verbal read back by Romeo Castillo. Performed By: #### B ASIC #### [address] [address] Creatinine mass conc 0.70 mg/dL Normal 0.70-1.20 [facility] Comment on above: Order Comment: GARCIA D ER 06/25/2018, 15:09, KJD, Called with verbal read back by Romeo Castillo. Performed By: #### B ASIC #### [address] [address] GFR/1.73 sq M predicted among non-blacks MDRD vol rate/area (S/P/Bld) 98 mL/min/1.73 m2 Normal >60 [facility] Comment on above: Order Comment: GARCIA [...] OR very young -Races other than or -Iraqi -People with acute illnesses, amputations, or acute kidney failure. Estimated GFR should be interpreted in clinical context and an alternative method such as a timed urine collection for creatinine clearance used to verify questionable results. (Ref. National Kid[employer] Foundation 2015) Performed By: #### B ASIC #### [address] [address] Chloride molar conc 94 mmol/L Low 100-110 [facility] Comment on above: Order Comment: GARCIA D ER 06/25/2018, 15:09, KJD, Called with verbal read back by Romeo Castillo. Performed By: #### B ASIC #### [address] [address] Potassium molar conc 4.1 mmol/L Normal 3.5-5.0 [facility] Comment on above: Order Comment: GARCIA D ER 06/25/2018, 15:09, KJD, Called with verbal read back by Romeo Castillo. Performed By: #### B ASIC #### [address] [address] Sodium molar conc 135 mmol/L Low 136-145 [facility] Comment on above: Order Comment: GARCIA D ER 06/25/2018, 15:09, KJD, Called with verbal read back by Romeo Castillo. Performed By: #### B ASIC #### [address] [address] CARP1 0 HR DRAWon 06-25-2018 Troponin I.cardiac mass conc ng/mL Normal 0.012-0.120 [facility] Comment on above: Order Comment: GARCIA D ER 06/25/2018, 15:09, KJD, Called with verbal read back by Romeo Castillo. Result Comment: RE FERENCE RANGE IS 0.012 - 0.120 ng/ml cTnI - The cutoff of 0.120 ng/ml is recommended for diagnosis of AMI, yielding optimal performance of 95% sensitivity and 93% specificity. Performed By: #### C TP0 #### [address] [address] CARP1 3 HR DRAWon 06-25-2018 Troponin I.cardiac mass conc ng/mL Normal 0.012-0.120 [facility] Comment on above: Result Comment: RE FERENCE RANGE IS 0.012 - 0.120 ng/ml cTnI - The cutoff of 0.120 ng/ml is recommended for diagnosis of AMI, yielding optimal performance of 95% sensitivity and 93% specificity. Performed By: #### C TP3 #### [address] [address] CBC WITH DIFFERENTIALon - Basophils #/vol (Bld) 0.07 10*3/uL Normal 0.00-0.20 [facility] Comment on above: Performed By: #### C BCD #### [address] [address] Basophils #/vol (Bld) 0.7 % Normal 0.0-2.0 [facility] Comment on above: Performed By: #### C BCD #### [address] [address] Eosinophils #/vol (Bld) 0.12 10*3/uL Normal 0.00-0.50 [facility] Comment on above: Performed By: #### C BCD #### [address] [address] Eosinophils/100 WBC (Bld) 1.2 % Normal 0.0-4.0 [facility] Comment on above: Performed By: #### C BCD #### [address] [address] Erythrocyte distribution width Ratio (RBC) 11.5 % Normal 11.5-14.5 [facility] Comment on above: Performed By: #### C BCD #### [address] [address] Hematocrit Volume Fraction (Bld) 42.3 % Normal 35.0-47.0 [facility] Comment on above: Performed By: #### C BCD #### [address] [address] Hemoglobin mass conc (Bld) 14.8 g/dL Normal 12.0-16.0 [facility] Comment on above: Performed By: #### C BCD #### [address] [address] Lymphocytes #/vol (Bld) 1.60 10*3/uL Normal 1.00-4.80 [facility] Comment on above: Performed By: #### C BCD #### [address] [address] Lymphocytes/100 WBC (Bld) 15.6 % Low 24.0-44.0 [facility] Comment on above: Performed By: #### C BCD #### [address] [address] MCH Entitic mass (RBC) 31.1 pg Normal 25.6-32.2 [facility] Comment on above: Performed By: #### C BCD #### [address] [address] MCHC mass conc (RBC) 35.0 g/dL Normal 32.0-36.0 [facility] Comment on above: Performed By: #### C BCD #### [address] [address] MCV Entitic volume (RBC) 88.9 fL Normal 82.0-98.0 [facility] Comment on above: Performed By: #### C BCD #### [address] [address] Monocytes #/vol (Bld) 0.56 10*3/uL Normal 0.20-1.20 [facility] Comment on above: Performed By: #### C BCD #### [address] [address] Monocytes/100 WBC (Bld) 5.5 % Normal 5.0-12.0 [facility] Comment on above: Performed By: #### C BCD #### [address] [address] Neutrophils #/vol (Bld) 7.84 10*3/uL High 2.00-7.50 [facility] Comment on above: Performed By: #### C BCD #### [address] [address] Neutrophils/100 WBC (Bld) 76.6 % High 36.0-66.0 [facility] Comment on above: Performed By: #### C BCD #### [address] [address] NRBC COUNT 0.00 Normal 0.00-0.50 [facility] Comment on above: Performed By: #### C BCD #### [address] [address] Nucleated RBC/100 WBC Ratio (Bld) 0.0 % Normal [facility] Comment on above: Performed By: #### C BCD #### [address] [address] Platelet mean volume Entitic volume (Bld) 9.7 fL Normal 9.4-12.4 [facility] Comment on above: Performed By: #### C BCD #### [address] [address] Platelets #/vol (Bld) 314 10*3/uL Normal 150-400 [facility] Comment on above: Performed By: #### C BCD #### [address] [address] RBC #/vol (Bld) 4.76 10*6/uL Normal 3.80-5.10 [facility] Comment on above: Performed By: #### C BCD #### [address] [address] WBC #/vol (Bld) 10.23 10*3/uL Normal 4.80-10.80 [facility] Comment on above: Performed By: #### C BCD #### [address] [address] CULTURE-URINEon 06-25-2018 CULTURE-URINE PATIENT: BRIDGET JEAN BAPTISTE LOCATION: Ani#: [id number] : 1975 AGE: 43 SEX: F ORDER# [id number] ORDERED BY: PRESTON ESPINO Source: URI Collected: [...] Tobramycin <=4 S Trimeth/Sulfa <=2/ S Normal [facility] Comment on above: Performed By: #### C KYLEEIN #### [address] [address] D-DIMER QUANTITATIVEon 06-25 D-DIMER QUANTITATIVE 0.32 mg/L FEU Normal 0.00-0.50 [facility] Comment on above: Result Comment: 06-16 D-DIMER QUANTITATIVE REFERENCE INTERVAL: Anticoagulant therapy decreases the D-dimer levels and may generate false negative results Quantitative D-dimer performed on the Sysmex [id number] analyzer. Cutoff value is 0.50 mg/L FEU in an attempt to obtain a negative predictive value close to 100 percent. (for DVT and PE). Non-VTE causes of elevated D-dimer include: trauma, NM, stroke, sepsis, DIC, active collagen diseases, post-surgery, [...] 06-16-16 Performed By: #### D DIME #### [address] [address] MAGNESIUMon 06-25-2018 Magnesium mass conc 1.4 mg/dL Low 1.7-2.2 [facility] Comment on above: Order Comment: RADHA Long ER 06/25/2018, 15:09, KJD, Called with verbal read back by Romeo Castillo. Performed By: #### M AG #### [address] [address] UA COMPLETE AND REFLEX TO CU LTUREon 06-25-2018 BACTERIA 4+ /hpf Abnormal NONE [facility] Comment on above: Performed By: #### U RINR #### [address] [address] HYALINE CASTS NONE Normal NONE [facility] Comment on above: Performed By: #### U RINR #### [address] [address] RBC - URINE 7 /hpf High 0-2 [facility] Comment on above: Performed By: #### U RINR #### [address] [address] URINE EPITHELIAL CELLS 1 /hpf Normal 0-5 [facility] Comment on above: Performed By: #### U RINR #### [address] [address] URINE REFLEX CASTS NORMAL Normal [facility] Comment on above: Performed By: #### U RINR #### [address] [address] URINE REFLEX CELLS NORMAL Normal [facility] Comment on above: Performed By: #### U RINR #### [address] [address] URINE REFLEX CRYSTALS NORMAL Normal [facility] Comment on above: Performed By: #### U RINR #### [address] [address] URINE REFLEX YEAST NORMAL Normal [facility] Comment on above: Performed By: #### U RINR #### [address] [address] WBC - URINE 92 /hpf High 0-5 [facility] Comment on above: Performed By: #### U RINR #### [address] [address] Bilirubin.direct mass conc Negative Normal NEGATIVE [facility] Comment on above: Performed By: #### U RINR #### [address] [address] BLOOD Negative Normal NEGATIVE [facility] Comment on above: Performed By: #### U RINR #### [address] [address] Color Nom (U) LIGHT YELLOW Normal [facility] Comment on above: Performed By: #### U RINR #### [address] [address] Glucose Ql (U) >2000 Abnormal NEGATIVE [facility] Comment on above: Performed By: #### U RINR #### [address] [address] Ketones Ql (U) Negative Normal NEGATIVE [facility] Comment on above: Performed By: #### U RINR #### [address] [address] Leukocyte esterase Test strip Ql (U) MODERATE Abnormal NEGATIVE [facility] Comment on above: Performed By: #### U RINR #### [address] [address] NITRITES URINE 2+ mg/dL Abnormal NEGATIVE [facility] Comment on above: Performed By: #### U RINR #### [address] [address] pH (U) 5.5 [pH] Normal 6.0-8.5 [facility] Comment on above: Performed By: #### U RINR #### [address] [address] Protein mass conc (U) Negative Normal NEG/TRACE Mem [facility] Comment on above: Performed By: #### U RINR #### [address] [address] Specific gravity Relative Density (U) 1.033 Normal 1.010 - 1.030 [facility] Comment on above: Performed By: #### U RINR #### [address] [address] TURBIDITY CLEAR [facility] Comment on above: Performed By: #### U RINR #### [address] [address] UROBILINOGEN URINE 0.2 mg/dL Normal <2.0 [facility] Comment on above: Performed By: #### U RINR #### [address] [address] METHOD OF COLLECTING URINE Not stated Normal [facility] Comment on above: Performed By: #### U RINR #### [address] [address] XR-Chest Xray - Portable One Viewon 06-25-2018 [...] cardiopulmonary disease. Read By: CÉSAR RICE DO [facility] Urinalysis, Routineon 2017 Acetaminophen mass conc Negative Normal NEG [facility] Comment on above: Performed By: #### C DP, BMP, BNP, TROPI, DIME, PT, PTT ####[address] [place] [address] Bilirubin (direct) Negative Normal NEG [facility] Comment on above: Performed By: #### C DP, BMP, BNP, TROPI, DIME, PT, PTT ####[facility] [address] [place] [address] Hemoglobin mass conc (Bld) Negative Normal NEG [facility] Comment on above: Performed By: #### C DP, BMP, BNP, TROPI, DIME, PT, PTT ####[address] [place] [address] Nitrite,Ur Positive Abnormal NEG [facility] Comment on above: Performed By: #### C DP, BMP, BNP, TROPI, DIME, PT, PTT ####[address] [place] [address] Turbidity SLIGHTLY CLOUDY Abnormal CLEAR [facility] Comment on above: Performed By: #### C DP, BMP, BNP, TROPI, DIME, PT, PTT ####[address] [place] [address] Urine, color YELLOW Normal YEL [facility] Comment on above: Performed By: #### C DP, BMP, BNP, TROPI, DIME, PT, PTT ####[address] [place] [address] Urine, glucose presence 3+ Abnormal NEG [facility] Comment on above: Performed By: #### C DP, BMP, BNP, TROPI, DIME, PT, PTT ####[address] [place] [address] Urine, leukocyte esterase presence Negative Normal NEG [facility] Comment on above: Result Comment: Perf ormed at [address] [place] [address] Performed By: #### C DP, BMP, BNP, TROPI, DIME, PT, PTT ####[address] [place] [address] Urine, pH 5.5 [pH] Normal 5.0-9.0 [facility] Comment on above: Performed By: #### C DP, BMP, BNP, TROPI, DIME, PT, PTT ####[address] [place] [address] Urine, protein presence Negative Normal NEG [facility] Comment on above: Performed By: #### C DP, BMP, BNP, TROPI, DIME, PT, PTT ####[address] [place] [address] Urine, specific gravity 1.020 Normal 1.010-1.020 [facility] Comment on above: Performed By: #### C DP, BMP, BNP, TROPI, DIME, PT, PTT ####[address] [place] [address] Urobilinogen,Ur Normal Normal NORM [facility] Comment on above: Performed By: #### C DP, BMP, BNP, TROPI, DIME, PT, PTT ####[address] [place] [address] Urinalysis,Microon 8 ----- Normal [facility] Comment on above: Performed By: #### C DP, BMP, BNP, TROPI, DIME, PT, PTT ####[address] [place] [address] Urine WBC's 10 TO 20 Normal 0-5 [facility] Comment on above: Performed By: #### C DP, BMP, BNP, TROPI, DIME, PT, PTT ####[address] [place] [address] Urine, bacteria in sediment 3+ Abnormal NONE [facility] Comment on above: Result Comment: Perf ormed at [address] [place] [address] Performed By: #### C DP, BMP, BNP, TROPI, DIME, PT, PTT ####[address] [place] [address] Urine, epithelial cells in sediment 0 TO 2 Normal 0-25 [facility] Comment on above: Performed By: #### C DP, BMP, BNP, TROPI, DIME, PT, PTT ####[address] [place] [address] Urine, erythrocytes 0 TO 2 Normal 0-2 [facility] Comment on above: Performed By: #### C DP, BMP, BNP, TROPI, DIME, PT, PTT ####[address] [place] [address] Basic Metabolic Profon 09-01 (cont.) Normal [facility] Comment on above: Result Comment: Aver age GFR for 40-49 years old: 99 mL/min/1.73sq mChronic Kidney Disease: <60 mL/min/1.73sq mKidney failure: <15 mL/min/1.73sq meGFR calculated using average adult body mass. Additional eGFR calculator available at:http://www.HowDo.[employer]/multiple_crcl_2012.htm Performed By: #### C DP, BMP, BNP, TROPI, DIME, PT, PTT ####[address] [place] [address] Anion gap 18 mmol/L High 9-17 [facility] Comment on above: Performed By: #### C DP, BMP, BNP, TROPI, DIME, PT, PTT ####[address] [place] [address] BUN/CRE Ratio 12 Normal 9-20 [facility] Comment on above: Performed By: #### C DP, BMP, BNP, TROPI, DIME, PT, PTT ####[address] [place] [address] Calcium 7.9 mg/dL Low 8.6-10.4 [facility] Comment on above: Performed By: #### C DP, BMP, BNP, TROPI, DIME, PT, PTT ####[address] [facility] Chloride 101 mmol/L Normal 98-107 [facility] Comment on above: Performed By: #### C DP, BMP, BNP, TROPI, DIME, PT, PTT ####[address] , [facility] CO2 20 mmol/L Normal 20-31 [facility] Comment on above: Performed By: #### C DP, BMP, BNP, TROPI, DIME, PT, PTT ####[address] , [place] [address] Creatinine 0.60 mg/dL Normal 0.50-0.90 [facility] Comment on above: Performed By: #### C DP, BMP, BNP, TROPI, DIME, PT, PTT ####[address] , [facility] eGFR (non-black) mL/min/{1.73_m2} Normal >60 [facility] Comment on above: Performed By: #### C DP, BMP, BNP, TROPI, DIME, PT, PTT ####[address] [place] [address] Glucose mass conc 297 mg/dL High 70-99 [facility] Comment on above: Performed By: #### C DP, BMP, BNP, TROPI, DIME, PT, PTT ####[address] , [facility] Potassium molar conc 3.3 mmol/L Low 3.7-5.3 [facility] Comment on above: Performed By: #### C DP, BMP, BNP, TROPI, DIME, PT, PTT ####[address] , [facility] Sodium 139 mmol/L Normal 135-144 [facility] Comment on above: Performed By: #### C DP, BMP, BNP, TROPI, DIME, PT, PTT ####[address] [place] [address] Staging: Normal [facility] Comment on above: Result Comment: Stag e 1: Some kidney damage normal GFRStage 2: Mild kidney damage GFR 60-89Stage 3: Moderate kidney damage GFR 30-59Stage 4: Severe kidney damage GFR 15-29Stage 5: Severe kidney damage GFR <15ESRD - chronic treatment by dialysis or transplantPerformed at [address] [place] [address] Performed By: #### C DP, BMP, BNP, TROPI, DIME, PT, PTT ####[address] [place] [address] Urea nitrogen 7 mg/dL Normal 6-20 [facility] Comment on above: Performed By: #### C DP, BMP, BNP, TROPI, DIME, PT, PTT ####[address] [place] [address] Glucose mass conc 447 mg/dL Critically high 70-99 [facility] Comment on above: Performed By: #### C DP, BMP, BNP, TROPI, DIME, PT, PTT ####[address] [place] [address] (cont.) Normal [facility] Comment on above: Result Comment: Aver age GFR for 40-49 years old: 99 mL/min/1.73sq mChronic Kidney Disease: <60 mL/min/1.73sq mKidney failure: <15 mL/min/1.73sq meGFR calculated using average adult body mass. Additional eGFR calculator available at:http://www.HowDo.com/multiple_crcl_2012.htm Performed By: #### C DP, BMP, BNP, TROPI, DIME, PT, PTT ####[address] [place] [address] Anion gap 21 mmol/L High 9-17 [facility] Comment on above: Performed By: #### C DP, BMP, BNP, TROPI, DIME, PT, PTT ####[address] , [place] [address] BUN/CRE Ratio 15 Normal 9-20 [facility] Comment on above: Performed By: #### C DP, BMP, BNP, TROPI, DIME, PT, PTT ####[address] , [facility] Calcium 9.4 mg/dL Normal 8.6-10.4 [facility] Comment on above: Performed By: #### C DP, BMP, BNP, TROPI, DIME, PT, PTT ####[address] , [facility] Chloride 94 mmol/L Low 98-107 [facility] Comment on above: Performed By: #### C DP, BMP, BNP, TROPI, DIME, PT, PTT ####[address] , [place] [address] CO2 20 mmol/L Normal 20-31 [facility] Comment on above: Performed By: #### C DP, BMP, BNP, TROPI, DIME, PT, PTT ####[address] [place] [address] Creatinine 0.62 mg/dL Normal 0.50-0.90 [facility] Comment on above: Performed By: #### C DP, BMP, BNP, TROPI, DIME, PT, PTT ####[address] , [facility] eGFR (non-black) mL/min/{1.73_m2} Normal >60 [facility] Comment on above: Performed By: #### C DP, BMP, BNP, TROPI, DIME, PT, PTT ####[address] , [place] [address] Potassium molar conc 3.5 mmol/L Low 3.7-5.3 [facility] Comment on above: Performed By: #### C DP, BMP, BNP, TROPI, DIME, PT, PTT ####[address] , [place] [address] Sodium 135 mmol/L Normal 135-144 [facility] Comment on above: Performed By: #### C DP, BMP, BNP, TROPI, DIME, PT, PTT ####[address] [place] [address] Staging: Normal [facility] Comment on above: Result Comment: Stag e 1: Some kidney damage normal GFRStage 2: Mild kidney damage GFR 60-89Stage 3: Moderate kidney damage GFR 30-59Stage 4: Severe kidney damage GFR 15-29Stage 5: Severe kidney damage GFR <15ESRD - chronic treatment by dialysis or transplantPerformed at [address] [place] [address] Performed By: #### C DP, BMP, BNP, TROPI, DIME, PT, PTT ####[address] [place] [address] Urea nitrogen 9 mg/dL Normal 6-20 [facility] Comment on above: Performed By: #### C DP, BMP, BNP, TROPI, DIME, PT, PTT ####[address] [place] [address] Beta Hydroxybutyrateon 09-01 Beta Hydroxybutyrate 0.74 mmol/L High 0.02-0.27 [facility] Comment on above: Result Comment: Perf ormed at [address] [place] [address] Performed By: #### C DP, BMP, BNP, TROPI, DIME, PT, PTT ####[address] [place] [address] CBCon 09-01-2017 Erythrocyte distribution width Auto Ratio (RBC) 12.6 % Normal 11.8-14.4 [facility] Comment on above: Performed By: #### C DP, BMP, BNP, TROPI, DIME, PT, PTT ####[address] [place] [address] Erythrocytes (RBC) 4.39 10*6/uL Normal 3.95-5.11 [facility] Comment on above: Performed By: #### C DP, BMP, BNP, TROPI, DIME, PT, PTT ####[address] [place] [address] Erythrocytes (RBC) 0.0 per 100 WBC Normal 0.0 M [facility] Comment on above: Result Comment: Perf ormed at [address] [id number] [phone] Performed By: #### C DP, BMP, BNP, TROPI, DIME, PT, PTT ####[address] [place] [address] Hematocrit (HCT) 39.2 % Normal 36.3-47.1 [facility] Comment on above: Performed By: #### C DP, BMP, BNP, TROPI, DIME, PT, PTT ####[address] [place] [address] Hemoglobin mass conc (Bld) 13.7 g/dL Normal 11.9-15.1 [facility] Comment on above: Performed By: #### C DP, BMP, BNP, TROPI, DIME, PT, PTT ####[address] [place] [address] MCH 31.2 pg Normal 25.2-33.5 [facility] Comment on above: Performed By: #### C DP, BMP, BNP, TROPI, DIME, PT, PTT ####[address] [place] [address] MCHC mass conc (RBC) 34.9 g/dL High 28.4-34.8 [facility] Comment on above: Performed By: #### C DP, BMP, BNP, TROPI, DIME, PT, PTT ####[address] [place] [address] MCV 89.3 fL Normal 82.6-102.9 [facility] Comment on above: Performed By: #### C DP, BMP, BNP, TROPI, DIME, PT, PTT ####[address] [place] [address] Platelet mean volume (PMV) 9.3 fL Normal 8.1-13.5 [facility] Comment on above: Performed By: #### C DP, BMP, BNP, TROPI, DIME, PT, PTT ####[address] [place] [address] Platelets 317 10*3/uL Normal 138-453 [facility] Comment on above: Performed By: #### C DP, BMP, BNP, TROPI, DIME, PT, PTT ####[address] [place] [address] WBC (Leukocytes) 9.0 10*3/uL Normal 3.5-11.3 [facility] Comment on above: Performed By: #### C DP, BMP, BNP, TROPI, DIME, PT, PTT ####[address] [place] [address] D-Dimer Teston 09-01-2017 D-Dimer Test 0.23 mg/L FEU Normal 0.19-0.50 [facility] Comment on above: Result Comment: Elev ated [...] PE (negative predictive value of 98%).Performed at [address] [place] [address] Performed By: #### C DP, BMP, BNP, TROPI, DIME, PT, PTT ####[address] [place] [address] ED Provider Noteon 8 HIM IP Note OR Conditioner Tender Normal [facility] Lithiumon 09-01-2017 Powers 0.8 mmol/L Normal 0.6-1.2 [facility] Comment on above: Result Comment: Perf ormed at [address] [place] [address] Performed By: #### C DP, BMP, BNP, TROPI, DIME, PT, PTT ####[address] [place] [address] Date last dose, NOT REPORTED Normal [facility] Comment on above: Performed By: #### C DP, BMP, BNP, TROPI, DIME, PT, PTT ####[address] [place] [address] Dose amount, NOT REPORTED Normal [facility] Comment on above: Performed By: #### C DP, BMP, BNP, TROPI, DIME, PT, PTT ####[address] [place] [address] Time last dose, NOT REPORTED Normal [facility] Comment on above: Performed By: #### C DP, BMP, BNP, TROPI, DIME, PT, PTT ####[address] [place] [address] Magnesiumon 09-01-2017 Magnesium 1.5 mg/dL Low 1.6-2.6 [facility] Comment on above: Result Comment: Perf ormed at [address] [place] [address] Performed By: #### C DP, BMP, BNP, TROPI, DIME, PT, PTT ####[address] [place] [address] Troponinon 09-01-2017 Troponin I.cardiac mass conc Normal [facility] Comment on above: Result Comment: Refe rence Range: <0.03 Within reference range. 0.03-0.09 Possible myocardial damage.Repeat at appropriate intervals to rule out chronic elevation. >= 0.10 Indicative of myocardial damage.Patients with high levels of Biotin oral intake (i.e >5mg/day) may have falsely decreased Troponin T levels. Samples collected within 8 hours of biotin intake may require additional information for diagnosis.Performed at [address] [place] [address] Performed By: #### C DP, BMP, BNP, TROPI, DIME, PT, PTT ####[address] [place] [address] Troponin T.cardiac mass conc ug/L Normal <0.03 [facility] Comment on above: Result Comment: Trop onin T results cannot be compared to Troponin-I results. Performed By: #### C DP, BMP, BNP, TROPI, DIME, PT, PTT ####[address] [place] [address] Urinalysis, Routineon 2017 Comment NOT REPORTED Normal [facility] Comment on above: Performed By: #### C DP, BMP, BNP, TROPI, DIME, PT, PTT ####[address] [place] [address] Urinalysis,Microon 8 Epithelial, Renal NOT REPORTED Normal 0 [facility] Comment on above: Performed By: #### C DP, BMP, BNP, TROPI, DIME, PT, PTT ####[address] [place] [address] Mucus Strands NOT REPORTED Normal NONE [facility] Comment on above: Performed By: #### C DP, BMP, BNP, TROPI, DIME, PT, PTT ####[address] [place] [address] Other Observations NOT REPORTED [facility] Comment on above: Performed By: #### C DP, BMP, BNP, TROPI, DIME, PT, PTT ####[address] [place] [address] Trichomonas NOT REPORTED Normal NONE [facility] Comment on above: Performed By: #### C DP, BMP, BNP, TROPI, DIME, PT, PTT ####[address] [place] [address] Urine, amorphous sediment presence in sediment NOT REPORTED Normal [facility] Comment on above: Performed By: #### C DP, BMP, BNP, TROPI, DIME, PT, PTT ####[address] [place] [address] Urine, casts in sediment NOT REPORTED Normal [facility] Comment on above: Performed By: #### C DP, BMP, BNP, TROPI, DIME, PT, PTT ####[address] [place] [address] Urine, crystals in sediment NOT REPORTED Normal [facility] Comment on above: Performed By: #### C DP, BMP, BNP, TROPI, DIME, PT, PTT ####[address] [place] [address] Urine, yeast presence in sediment NOT REPORTED Normal [facility] Comment on above: Performed By: #### C DP, BMP, BNP, TROPI, DIME, PT, PTT ####[address] [place] [address] Venous Blood Gaseson 018 Bicarbonate (HCO3) 21.2 mmol/L Low 24.0-30.0 [facility] Comment on above: Performed By: #### C DP, BMP, BNP, TROPI, DIME, PT, PTT ####[address] [place] [address] Body Temp. 37.0 Normal [facility] Comment on above: Result Comment: Perf ormed at [address] [place] [address] Performed By: #### C DP, BMP, BNP, TROPI, DIME, PT, PTT ####[address] [place] [address] CO2 35.0 mmol/L Low 39-55 [facility] Comment on above: Performed By: #### C DP, BMP, BNP, TROPI, DIME, PT, PTT ####[address] [place] [address] Negative Base Excess 2.8 mmol/L High 0.0-2.0 [facility] Comment on above: Performed By: #### C DP, BMP, BNP, TROPI, DIME, PT, PTT ####[address] [place] [address] O2 saturation 67.0 % Normal 60.0-85.0 [facility] Comment on above: Performed By: #### C DP, BMP, BNP, TROPI, DIME, PT, PTT ####[address] [place] [address] Oxygen in arterial blood 34.6 mm[Hg] Normal 30.0-50.0 [facility] Comment on above: Performed By: #### C DP, BMP, BNP, TROPI, DIME, PT, PTT ####[address] [place] [address] pH of blood 7.400 [pH] Normal 7.32-7.42 [facility] Comment on above: Performed By: #### C DP, BMP, BNP, TROPI, DIME, PT, PTT ####[address] [place] [address] Chuckie Test NOT REPORTED Normal [facility] Comment on above: Performed By: #### C DP, BMP, BNP, TROPI, DIME, PT, PTT ####[address] [place] [address] CO2 NOT REPORTED Normal 39.0-55.0 [facility] Comment on above: Performed By: #### C DP, BMP, BNP, TROPI, DIME, PT, PTT ####[address] [place] [address] FIO2 NOT REPORTED Normal [facility] Comment on above: Performed By: #### C DP, BMP, BNP, TROPI, DIME, PT, PTT ####[address] [place] [address] Hemoglobin mass conc (Bld) NOT REPORTED Normal 95.0-98.0 [facility] Comment on above: Performed By: #### C DP, BMP, BNP, TROPI, DIME, PT, PTT ####[address] [place] [address] Mode NOT REPORTED Normal [facility] Comment on above: Performed By: #### C DP, BMP, BNP, TROPI, DIME, PT, PTT ####[address] [place] [address] Notification Time NOT REPORTED Normal [facility] Comment on above: Performed By: #### C DP, BMP, BNP, TROPI, DIME, PT, PTT ####[address] [place] [address] Notification: NOT REPORTED Normal [facility] Comment on above: Performed By: #### C DP, BMP, BNP, TROPI, DIME, PT, PTT ####[address] [place] [address] O2 Device/Flow/% NOT REPORTED Normal [facility] Comment on above: Performed By: #### C DP, BMP, BNP, TROPI, DIME, PT, PTT ####[address] [place] [address] PEEP/CPAP NOT REPORTED Normal [facility] Comment on above: Performed By: #### C DP, BMP, BNP, TROPI, DIME, PT, PTT ####[address] [place] [address] pH Adjst'd for Temp. NOT REPORTED Normal 7.320-7.420 M [facility] Comment on above: Performed By: #### C DP, BMP, BNP, TROPI, DIME, PT, PTT ####[address] [place] [address] pO2 Adj'd for Temp. NOT REPORTED Normal 30.0-50.0 [facility] Comment on above: Performed By: #### C DP, BMP, BNP, TROPI, DIME, PT, PTT ####[address] [place] [address] Positive Base Excess NOT REPORTED Normal 0.0-2.0 [facility] Comment on above: Performed By: #### C DP, BMP, BNP, TROPI, DIME, PT, PTT ####[address] [place] [address] PSV NOT REPORTED Normal [facility] Comment on above: Performed By: #### C DP, BMP, BNP, TROPI, DIME, PT, PTT ####[address] [place] [address] Pt. Position NOT REPORTED Normal [facility] Comment on above: Performed By: #### C DP, BMP, BNP, TROPI, DIME, PT, PTT ####[address] [place] [address] Respiratory rate NOT REPORTED Normal [facility] Comment on above: Performed By: #### C DP, BMP, BNP, TROPI, DIME, PT, PTT ####[address] [place] [address] Set Rate NOT REPORTED Normal [facility] Comment on above: Performed By: #### C DP, BMP, BNP, TROPI, DIME, PT, PTT ####[address] [place] [id number] Site Drawn NOT REPORTED Normal [facility] Comment on above: Performed By: #### C DP, BMP, BNP, TROPI, DIME, PT, PTT ####[address] [place] [address] Text for Respiratory NOT REPORTED Normal [facility] Comment on above: Performed By: #### C DP, BMP, BNP, TROPI, DIME, PT, PTT ####[address] [place] [address] Total Hb NOT REPORTED Normal 12.0-16.0 [facility] Comment on above: Performed By: #### C DP, BMP, BNP, TROPI, DIME, PT, PTT ####[address] , [place] [address] Total Rate NOT REPORTED Normal [facility] Comment on above: Performed By: #### C DP, BMP, BNP, TROPI, DIME, PT, PTT ####[address] , [place] [address] [place] NOT REPORTED Normal [facility] Comment on above: Performed By: #### C DP, BMP, BNP, TROPI, DIME, PT, PTT ####[address] [place] [id number] XR CHEST (2 VW)on 09-01-2017 XR CHEST (2 VW) FINAL REPORTEXAM: XR CHEST (2 VW)HISTORY: shortness of breath TECHNIQUE: Two-view chest PRIORS: None.FINDINGS: Lung marquez are clear. No consolidation, pleural effusion, or pneumothorax. Cardio mediastinal silhouette is unremarkable. Chest port and pacer noted. IMPRESSION: Impression: No acute disease. Interpreted by:LUIS Dykesigned by:Ko Lua MD09/01/17inal result Normal [facility] PROGRESSon 07-17-2017 PROGRESS HNO ID: [id number] thor: Ben MurphyheyService: (none)Author Type: PhysicianType: Progress NotesFiled: 07/17/2017 10:07 AMNote Text:Heart and Vascular InstituteRobert and Pretty [facility] Department of Cardiovascular MedicineOUTPATIENT VISIT DATE 07/17/17OUTPATIENT VISIT TYPENEWPRATRIUM HEALTH PINEVILLERY CARE PHYSICIAN:Cem Mario [id number] [facility] [address]Csayv: [phone]: [phone] COMPLAINT:Patient presents with:Cardiac ClearanceHISTORY OF PRESENT ILLNESS:Addie Jean Baptiste is a 42 year old female with a 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 The patient is facingankle surgery in the near future. The patient is usually seen at [facility] cardiology practice. She states that she [...] follow-up checkup in the near future in [place]. The patient hasnot had any problems with [...] 251-300 = 6 units 301-350 = 8 [id number] = 10 unitsinsulin lispro (HUMALOG) 100 unit/mL [...] kg (196 lb) SpO2 96% BMI 35.85 kg/c8Hhwmeiu: Well appearing, in no acute distress.Eyes: Conjunctiva [...] There there is no evidence of previous NM.I have personally reviewed the above Cardiovascular Medicine [...] first checkup of recently changed generator at [facility].4. Controlled type 2 diabetes mellitus without [...] diet.Follow-up with [facility] primary cardiology provider at [facility] aspreviously directed.A copy of this consultation note will be provided to the requestingphysician by way of shared medical record or to the requesting physicianvia U.S. Mail.This document was generated utilizing [employer]. I have reviewedand verified that the contents of the document are accurate with theexception of minor grammatical, spelling and punctuation errors.CONTACT INFORMATION:Thank you for allowing us to participate in the care of this very pleasantpatient. Please free to contact us if we can be of any furtherassistance.Ben De Jesus MD, FACCRobert and Pretty ZeeDepartment of Cardiovascular MedicineGlenbeigh Hospitalrt and Vascular Institute[address] [address]Uzstnk: [phone] Normal [facility] XR Lumbar Spine 2-3 Views (S tandard)on 06-26-2017 XR Lumbar Spine 2-3 Views (Standard) No acute osseous abnormality. If symptoms persist, further evaluation with MRI would be recommended. [facility]enn Workstation ID: [id number] Invalid Interpretation Code [employer] [facility] XR Lumbar Spine 2-3 Views (Standard) [...] Lumbar radiographs 01/30/2014. FINDINGS: There are 5 msa-jff-jcuhmek lumbar-type vertebral bodies in anatomic alignment. Mineralization is within normal limits. No acute fracture or dislocation. The sacroiliac joint spaces are unremarkable. Surgical clips are seen within the right upper quadrant of the abdomen. Invalid Interpretation Code [employer] [facility] XR Lumbar Spine 2-3 Views (Standard) Interface, Rad In Pacs Powerscribe - 06/27/2017 12:48 AM EST EXAMINATION: XR LUMBAR SPINE 2-3 VIEWS (STANDARD) HISTORY: ORDERING SYSTEM PROVIDED HISTORY: back pain, TECHNOLOGIST PROVIDED HISTORY: Reason for exam: Pt states she was at [employer] eating and then upon leaving went to [...] Lumbar radiographs 01/30/2014. FINDINGS: There are 5 mde-jbx-kcgbdim lumbar-type vertebral bodies in anatomic alignment. Mineralization is within normal limits. No acute fracture or dislocation. The sacroiliac joint spaces are unremarkable. Surgical clips are seen within the right upper quadrant of the abdomen. IMPRESSION: No acute osseous abnormality. If symptoms persist, further evaluation with MRI would be recommended. [facility] Workstation ID: [id number] Invalid Interpretation Code [employer]Brick [facility] XR Thoracic Spine 3 Views (S tandard)on 06-26-2017 XR Thoracic Spine 3 Views (Standard) No acute bony abnormalities. [facility] Workstation ID: [id number] Invalid Interpretation Code AppBrick [facility] XR Thoracic Spine 3 Views (Standard) EXAMINATION: XR THORACIC SPINE 3 VIEWS (STANDARD) HISTORY: ORDERING SYSTEM PROVIDED HISTORY: back pain, TECHNOLOGIST PROVIDED HISTORY: Reason for exam: Pt states she was at [employer] eating and then upon leaving went to [...] acute fractures or dislocations. Invalid Interpretation Code [employer] [facility] XR Thoracic Spine 3 Views (Standard) Interface, Rad In Pacs Powerscribe - 06/26/2017 9:04 PM EST EXAMINATION: XR THORACIC SPINE 3 VIEWS (STANDARD) HISTORY: ORDERING SYSTEM PROVIDED HISTORY: back pain, TECHNOLOGIST PROVIDED HISTORY: Reason for exam: Pt states she was at [place] eating and then upon leaving went to [...] or dislocations. IMPRESSION: No acute bony abnormalities. [employer] Workstation ID: [id number] Invalid Interpretation Code AppBrick [facility] Cult,Urineon 02-17-2017 Cult,Urine Specimen Description .URINE Performed at [address] [place] [address] ([phone] Special Requests NOT REPORTEDCulture ESCHERICHIA COLI >[id number] CFU/ML Performed at [facility] The Training Room (TTR) [address] [place] [address] [phone] Report Status FINAL 02/17/2017SUSCEPTIBILITYO rganism ECMethod MICAmikacin [...] SUSCEPTIBLETrimethoprim/S ulfa >=320 RESISTANTPiperacillin/Louis obactam <=4 SUSCEPTIBLE [facility] Comment on above: Performed By: #### C DP, BMP, BNP, TROPI, DIME, PT, PTT ####[address] [place] [address] APTTon 02-16-2017 aPTT 23.1 s Low 23.2-34.4 [facility] Comment on above: Result Comment: Perf ormed at [address] [place] [address] [phone] Performed By: #### C DP, BMP, BNP, TROPI, DIME, PT, PTT ####[address] [place] [address] Basic Metabolic Profon 02-16 (cont.) Normal [facility] Comment on above: Result Comment: Aver age GFR for 30-39 years old: 107 mL/min/1.73sq mChronic Kidney Disease: <60 mL/min/1.73sq mKidney failure: <15 mL/min/1.73sq meGFR calculated using average adult body mass. Additional eGFR calculator available at:http://www.HowDo.[employer]/multiple_crcl_2012.htm Performed By: #### C DP, BMP, BNP, TROPI, DIME, PT, PTT ####[address] [place] [address] Anion gap 20 mmol/L High 9-17 [facility] Comment on above: Performed By: #### C DP, BMP, BNP, TROPI, DIME, PT, PTT ####[address] [place] [address] BUN/CRE Ratio 11 Normal 9-20 [facility] Comment on above: Performed By: #### C DP, BMP, BNP, TROPI, DIME, PT, PTT ####[address] [place] [address] Calcium 9.7 mg/dL Normal 8.6-10.4 [facility] Comment on above: Performed By: #### C DP, BMP, BNP, TROPI, DIME, PT, PTT ####[address] [place] [address] Chloride 94 mmol/L Low 98-107 [facility] Comment on above: Performed By: #### C DP, BMP, BNP, TROPI, DIME, PT, PTT ####[address] [place] [address] CO2 20 mmol/L Normal 20-31 [facility] Comment on above: Performed By: #### C DP, BMP, BNP, TROPI, DIME, PT, PTT ####[address] [place] [address] Creatinine 0.71 mg/dL Normal 0.50-0.90 [facility] Comment on above: Performed By: #### C DP, BMP, BNP, TROPI, DIME, PT, PTT ####[address] [place] [address] eGFR (non-black) mL/min/{1.73_m2} Normal >60 [facility] Comment on above: Performed By: #### C DP, BMP, BNP, TROPI, DIME, PT, PTT ####[address] [place] [address] Glucose mass conc 396 mg/dL High 70-99 [facility] Comment on above: Performed By: #### C DP, BMP, BNP, TROPI, DIME, PT, PTT ####[address] [place] [address] Potassium molar conc 4.3 mmol/L Normal 3.7-5.3 [facility] Comment on above: Performed By: #### C DP, BMP, BNP, TROPI, DIME, PT, PTT ####[address] [place] [address] Sodium 134 mmol/L Low 135-144 [facility] Comment on above: Performed By: #### C DP, BMP, BNP, TROPI, DIME, PT, PTT ####[address] [place] [address] Staging: Normal [facility] Comment on above: Result Comment: Stag e 1: Some kidney damage normal GFRStage 2: Mild kidney damage GFR 60-89Stage 3: Moderate kidney damage GFR 30-59Stage 4: Severe kidney damage GFR 15-29Stage 5: Severe kidney damage GFR <15ESRD - chronic treatment by dialysis or transplantPerformed at [address] [place] [address] Performed By: #### C DP, BMP, BNP, TROPI, DIME, PT, PTT ####[address] [place] [address] Urea nitrogen 8 mg/dL Normal 6-20 [facility] Comment on above: Performed By: #### C DP, BMP, BNP, TROPI, DIME, PT, PTT ####[address] [place] [address] Brain Natri. Peptideon 02-16 BNP Normal [facility] Comment on above: Result Comment: Pro- BNP Reference Range:Rule Out: <300Grey Zone: Age <50 300-450 Age 50-75 300-900 Age >75 300-1800Usually represents mild to moderate HF but other cardiopulmonary causes cannot be ruled out.Rule In: Age <50 >450 Age 50-75 >900 Age >75 >1800Performed at [address] [place] [address] Performed By: #### C DP, BMP, BNP, TROPI, DIME, PT, PTT ####[address] [place] [address] BNP 117 pg/mL Normal <300 [facility] Comment on above: Result Comment: Pro- BNP results cannot be compared to BNP results. Performed By: #### C DP, BMP, BNP, TROPI, DIME, PT, PTT ####[address] [place] [address] CBC with Diffon 02-16-2017 Abs. Basophil 0.00 k/uL Normal 0.0-0.2 [facility] Comment on above: Result Comment: Perf ormed at [address] [place] [address] Performed By: #### C DP, BMP, BNP, TROPI, DIME, PT, PTT ####[address] [place] [address] Abs.Neutrophil (Seg) 8.70 k/uL High 1.8-7.7 [facility] Comment on above: Performed By: #### C DP, BMP, BNP, TROPI, DIME, PT, PTT ####[address] [place] [address] Basophils/100 WBC Auto (Bld) 0 % Normal [facility] Comment on above: Performed By: #### C DP, BMP, BNP, TROPI, DIME, PT, PTT ####[address] [facility]83 Eosinophils 0.10 10*3/uL Normal 0.0-0.4 [facility] Comment on above: Performed By: #### C DP, BMP, BNP, TROPI, DIME, PT, PTT ####[address] , [facility]83 Eosinophils/100 leukocytes 1 % Normal [facility] Comment on above: Performed By: #### C DP, BMP, BNP, TROPI, DIME, PT, PTT ####[address] , [place] [address] Erythrocyte distribution width Auto Ratio (RBC) 11.9 % Low 12.1-15.2 [facility] Comment on above: Performed By: #### C DP, BMP, BNP, TROPI, DIME, PT, PTT ####[address] , [place] [address] Erythrocytes (RBC) 5.01 10*6/uL Normal 4.0-5.2 [facility] Comment on above: Performed By: #### C DP, BMP, BNP, TROPI, DIME, PT, PTT ####[address] , [place] [address] Hematocrit (HCT) 45.2 % Normal 36-46 [facility] Comment on above: Performed By: #### C DP, BMP, BNP, TROPI, DIME, PT, PTT ####[address] , [place] [address] Hemoglobin mass conc (Bld) 15.5 g/dL Normal 12.0-16.0 [facility] Comment on above: Performed By: #### C DP, BMP, BNP, TROPI, DIME, PT, PTT ####[address] , [facility]83 Lymphocytes 2.00 10*3/uL Normal 1.0-4.8 [facility] Comment on above: Performed By: #### C DP, BMP, BNP, TROPI, DIME, PT, PTT ####[address] , [place] [address] Lymphocytes/100 leukocytes 18 % Normal [facility] Comment on above: Performed By: #### C DP, BMP, BNP, TROPI, DIME, PT, PTT ####[address] , [place] [address] MCH 31.0 pg Normal 26-34 [facility] Comment on above: Performed By: #### C DP, BMP, BNP, TROPI, DIME, PT, PTT ####[address] [place] [address] MCHC mass conc (RBC) 34.4 g/dL Normal 31-37 [facility] Comment on above: Performed By: #### C DP, BMP, BNP, TROPI, DIME, PT, PTT ####[address] , [place] [address] MCV 90.4 fL Normal 80-100 [facility] Comment on above: Performed By: #### C DP, BMP, BNP, TROPI, DIME, PT, PTT ####[address] , [place] [address] Monocytes 0.40 10*3/uL Normal 0.2-0.8 [facility] Comment on above: Performed By: #### C DP, BMP, BNP, TROPI, DIME, PT, PTT ####[address] , [place] [address] Monocytes/100 leukocytes 4 % Normal [facility] Comment on above: Performed By: #### C DP, BMP, BNP, TROPI, DIME, PT, PTT ####[address] , [place] [address] Neutrophil (Seg) 77 % Normal [facility] Comment on above: Performed By: #### C DP, BMP, BNP, TROPI, DIME, PT, PTT ####[address] [place] [address] Platelet mean volume (PMV) 8.1 fL Normal 6.0-12.0 [facility] Comment on above: Performed By: #### C DP, BMP, BNP, TROPI, DIME, PT, PTT ####[address] [place] [address] Platelets 340 10*3/uL Normal 140-450 [facility] Comment on above: Performed By: #### C DP, BMP, BNP, TROPI, DIME, PT, PTT ####[address] [place] [address] WBC (Leukocytes) 11.2 10*3/uL High 3.5-11.0 [facility] Comment on above: Performed By: #### C DP, BMP, BNP, TROPI, DIME, PT, PTT ####[address] [place] [address] Auto Diff Performed NOT REPORTED Normal [facility] Comment on above: Performed By: #### C DP, BMP, BNP, TROPI, DIME, PT, PTT ####[address] [place] [address] Erythrocyte morphology NOT REPORTED Normal [facility] Comment on above: Performed By: #### C DP, BMP, BNP, TROPI, DIME, PT, PTT ####[address] [place] [address] Platelets NOT REPORTED Normal [facility] Comment on above: Performed By: #### C DP, BMP, BNP, TROPI, DIME, PT, PTT ####[address] [place] [address] WBC Morphology NOT REPORTED Normal [facility] Comment on above: Performed By: #### C DP, BMP, BNP, TROPI, DIME, PT, PTT ####[address] [place] [address] D-Dimer Teston 02-16-2017 D-Dimer Test 0.26 mg/L FEU Normal 0.19-0.50 [facility] Comment on above: Result Comment: Elev ated [...] PE (negative predictive value of 98%).Performed at [address] [place] [address] [phone] Performed By: #### C DP, BMP, BNP, TROPI, DIME, PT, PTT ####[address] [place] [address] ED Noteon 02-16-2017 HIM IP Note OR Conditioner Tender Normal [facility] HIM IP Note OR Conditioner Tender Normal [facility] HIM IP Note OR Conditioner Tender Normal [facility] HIM IP Note OR Conditioner Tender Normal [facility] HIM IP Note OR Conditioner Tender Normal [facility] HIM IP Note OR Conditioner Tender Normal [facility] HIM IP Note OR Conditioner Tender Normal [facility] HIM IP Note OR Conditioner Tender Normal [facility] IP Note OR Conditioner Tender Normal [facility] HIM IP Note OR Conditioner Tender Normal [facility] IP Note OR Conditioner Tender Normal [facility] ED Provider Noteon 7 HIM IP Note OR Conditioner Tender Normal [facility] PTon 02-16-2017 INR Coag RelTime (PPP) 0.9 {INR} Normal 0.9-1.2 [facility] Comment on above: Result Comment: Perf ormed at [address] [place] [address] [phone] Performed By: #### C DP, BMP, BNP, TROPI, DIME, PT, PTT ####[address] [address] Prothrombin time (PT) Coag time (PPP) 9.7 s Normal 9.7-12.2 [facility] Comment on above: Performed By: #### C DP, BMP, BNP, TROPI, DIME, PT, PTT ####[address] [place] [address] Troponinon 02-16-2017 Troponin I.cardiac mass conc Normal [facility] Comment on above: Result Comment: Refe rence Range: <0.03 Within reference range. 0.03-0.09 Possible myocardial damage.Repeat at appropriate intervals to rule out chronic elevation. >= 0.10 Indicative of myocardial damage.Performed at [address] [place] [address] Performed By: #### C DP, BMP, BNP, TROPI, DIME, PT, PTT ####[address] [place] [address] Troponin T.cardiac mass conc ug/L Normal <0.03 [facility] Comment on above: Result Comment: Trop onin T results cannot be compared to Troponin-I results. Performed By: #### C DP, BMP, BNP, TROPI, DIME, PT, PTT ####[address] [place] [address] Troponin I.cardiac mass conc Normal [facility] Comment on above: Result Comment: Refe rence Range: <0.03 Within reference range. 0.03-0.09 Possible myocardial damage.Repeat at appropriate intervals to rule out chronic elevation. >= 0.10 Indicative of myocardial damage.Performed at [address] [place] [address] Performed By: #### C DP, BMP, BNP, TROPI, DIME, PT, PTT ####[address] [place] [id number] Troponin T.cardiac mass conc ug/L Normal <0.03 [facility] Comment on above: Result Comment: Trop onin T results cannot be compared to Troponin-I results. Performed By: #### C DP, BMP, BNP, TROPI, DIME, PT, PTT ####[address] , [place] [address] UA w/Reflex Cultureon 2016 Acetaminophen mass conc 1+ Abnormal NEG [facility] Comment on above: Performed By: #### C DP, BMP, BNP, TROPI, DIME, PT, PTT ####[address] , [place] [address] Bilirubin (direct) Negative Normal NEG [facility] Comment on above: Performed By: #### C DP, BMP, BNP, TROPI, DIME, PT, PTT ####[address] , [place] [address] Hemoglobin mass conc (Bld) TRACE Abnormal NEG [facility] Comment on above: Performed By: #### C DP, BMP, BNP, TROPI, DIME, PT, PTT ####[address] [place] [address] Nitrite,Ur Positive Abnormal NEG [facility] Comment on above: Performed By: #### C DP, BMP, BNP, TROPI, DIME, PT, PTT ####[address] [place] [address] Turbidity SLIGHTLY CLOUDY Abnormal CLEAR [facility] Comment on above: Performed By: #### C DP, BMP, BNP, TROPI, DIME, PT, PTT ####[address] [place] [address] Urine, color YELLOW Normal YEL [facility] Comment on above: Performed By: #### C DP, BMP, BNP, TROPI, DIME, PT, PTT ####[address] [place] [address] Urine, glucose presence 3+ Abnormal NEG [facility] Comment on above: Performed By: #### C DP, BMP, BNP, TROPI, DIME, PT, PTT ####[address] [place] [address] Urine, leukocyte esterase presence TRACE Abnormal NEG [facility] Comment on above: Result Comment: Perf ormed at [address] [place] [address] Performed By: #### C DP, BMP, BNP, TROPI, DIME, PT, PTT ####[address] [place] [address] Urine, pH 7.0 [pH] Normal 5.0-9.0 [facility] Comment on above: Performed By: #### C DP, BMP, BNP, TROPI, DIME, PT, PTT ####[address] [place] [address] Urine, protein presence Negative Normal NEG [facility] Comment on above: Performed By: #### C DP, BMP, BNP, TROPI, DIME, PT, PTT ####[address] [place] [address] Urine, specific gravity 1.010 Normal 1.010-1.020 [facility] Comment on above: Performed By: #### C DP, BMP, BNP, TROPI, DIME, PT, PTT ####[address] [place] [address] Urobilinogen,Ur Normal Normal NORM [facility] Comment on above: Performed By: #### C DP, BMP, BNP, TROPI, DIME, PT, PTT ####[address] [place] [address] Comment NOT REPORTED Normal [facility] Comment on above: Performed By: #### C DP, BMP, BNP, TROPI, DIME, PT, PTT ####[address] [place] [address] Urinalysis,Microon 7 ----- Normal [facility] Comment on above: Performed By: #### C DP, BMP, BNP, TROPI, DIME, PT, PTT ####[address] [place] [address] Urine WBC's 10 TO 20 Normal 0-5 [facility] Comment on above: Performed By: #### C DP, BMP, BNP, TROPI, DIME, PT, PTT ####[address] [place] [address] Urine, bacteria in sediment 3+ Abnormal NONE [facility] Comment on above: Result Comment: Perf ormed at [address] [place] [address] Performed By: #### C DP, BMP, BNP, TROPI, DIME, PT, PTT ####[address] [place] [address] Urine, epithelial cells in sediment 2 TO 5 Normal 0-25 [facility] Comment on above: Performed By: #### C DP, BMP, BNP, TROPI, DIME, PT, PTT ####[address] [place] [address] Urine, erythrocytes 0 TO 2 Normal 0-2 [facility] Comment on above: Performed By: #### C DP, BMP, BNP, TROPI, DIME, PT, PTT ####[address] [place] [address] Epithelial, Renal NOT REPORTED Normal 0 [facility] Comment on above: Performed By: #### C DP, BMP, BNP, TROPI, DIME, PT, PTT ####[address] [place] [address] Mucus Strands NOT REPORTED Normal NONE [facility] Comment on above: Performed By: #### C DP, BMP, BNP, TROPI, DIME, PT, PTT ####[address] [place] [address] Other Observations NOT REPORTED [facility] on above: Performed By: #### C DP, BMP, BNP, TROPI, DIME, PT, PTT ####[address] [place] [address] Trichomonas NOT REPORTED Normal [facility] Comment on above: Performed By: #### C DP, BMP, BNP, TROPI, DIME, PT, PTT ####[address] [place] [address] Urine, amorphous sediment presence in sediment NOT REPORTED Normal [facility] Comment on above: Performed By: #### C DP, BMP, BNP, TROPI, DIME, PT, PTT ####[address] [place] [address] Urine, casts in sediment NOT REPORTED Normal [facility] Comment on above: Performed By: #### C DP, BMP, BNP, TROPI, DIME, PT, PTT ####[address] [place] [address] Urine, crystals in sediment NOT REPORTED Normal [facility] Comment on above: Performed By: #### C DP, BMP, BNP, TROPI, DIME, PT, PTT ####[address] [place] [address] Urine, yeast presence in sediment NOT REPORTED Normal [facility] Comment on above: Performed By: #### C DP, BMP, BNP, TROPI, DIME, PT, PTT ####[address] [place] [address] XR CHEST PORTABLEon 02-17-20 17 XR CHEST [...] by:LUIS Migueligned by:Stephany Villafana MD02/16/17Final result Normal [facility] Laboratory Studieson -18-2 017 Urine Drug Screen (T) Final [facility] Comment on above: ==== TOXASSURE COMP [...] . ==== Urine Drug Screen Interpretation . [facility] Comment on above: See report. Scanned copy available in EMR. Performed at: [employer] [address] [place] [id number] Professor Of Forest Planning: Laura Damon MD, Phone: [phone] Vital Signs Date Time Vital Sign Value Performing Clinician Carol hansen 12-05-2024 12:15-0400 Body temperature 98.71 [degF] Elda Aguirre MD Work Phone: [email or web address] 12-05-2024 12:15-0400 Diastolic blood pressure 86 mm[Hg] Elda Aguirre MD Work Phone: [email or web address] 12-05-2024 12:15-0400 Heart rate 82 /min Elda Aguirre MD Work Phone: [email or web address] 12-05-2024 12:15-0400 Respiratory rate 14 /min Elda Aguirre MD Work Phone: [email or web address] 12-05-2024 12:15-0400 Systolic blood pressure 149 mm[Hg] Elda Aguirre MD Work Phone: [email or web address] 12-05-2024 08:12-0400 SaO2% (BldA) [Mass fraction] 94 % Elda Aguirre MD Work Phone: [facility] 12-03-2024 00:15-0400 Body height 157.5 cm Elda Aguirre MD Work Phone: [facility] 12-03-2024 00:15-0400 Body mass index (BMI) [Ratio] 44.91 kg/m2 Elda Aguirre MD Work Phone: [facility] 12-03-2024 00:15-0400 Body weight 111.4 kg Elda Aguirre MD Work Phone: [facility] 09-23-2024 10:55-0400 Diastolic blood pressure 84 mm[Hg] Jim Agustin DO Work Phone: [facility] 09-23-2024 10:55-0400 Heart rate 110 /min Jim Velez Work Phone: [facility] 09-23-2024 10:55-0400 SaO2% (BldA) [Mass fraction] 98 % Bridgerchandni Velez DO Work Phone: [facility] 09-23-2024 10:55-0400 Systolic blood pressure 121 mm[Hg] Jim Agustin DUMONT Work Phone: [facility] 08-29-2024 13:49-0400 Body height 157.48 cm No [facility] Work Phone: 08-29-2024 13:49-0400 Body mass index (BMI) [Ratio] 51.2 kg/m2 No [facility] Work Phone: 08-29-2024 13:49-0400 Body temperature 97.6 [degF] No [facility] Work Phone: 08-29-2024 13:49-0400 Body weight 127.01 kg No [facility] Work Phone: 08-29-2024 13:49-0400 Diastolic blood pressure 90 mm[Hg] No [facility] Work Phone: 08-29-2024 13:49-0400 Heart rate 94 /min No [facility] Work Phone: 08-29-2024 13:49-0400 Respiratory rate 16 /min [facility] Work Phone: 08-29-2024 13:49-0400 SaO2% (BldA) [Mass fraction] 99 % No Doctor [facility] Work Phone: 08-29-2024 13:49-0400 Systolic blood pressure 193 mm[Hg] No Doctor [facility] Work Phone: 08-02-2024 15:13-0400 Diastolic blood pressure 83 mm[Hg] Stephany McCague PA-C Work Phone: [facility] 08-02-2024 15:13-0400 Systolic blood pressure 122 mm[Hg] Stephany McCague PA-C Work Phone: [facility] 08-02-2024 14:25-0400 Body height 157.5 cm Stephany McCague PA-C Work Phone: [facility] 08-02-2024 14:25-0400 Heart rate 88 /min Stephany McCague PA-C Work Phone: [facility] 08-02-2024 14:25-0400 SaO2% (BldA) [Mass fraction] 95 % Stephany McCague PA-C Work Phone: [facility] 07-15-2024 10:57-0500 Body height 157.5 cm Stephany McCague PA-C Work Phone: [facility] 07-15-2024 10:57-0500 Diastolic blood pressure 88 mm[Hg] Stephany McCague PA-C Work Phone: [facility] 07-15-2024 10:57-0500 Heart rate 87 /min Stephany McCague PA-C Work Phone: [facility] 07-15-2024 10:57-0500 SaO2% (BldA) [Mass fraction] 98 % Stephany RUBALCAVA-C Work Phone: [facility] 07-15-2024 10:57-0500 Systolic blood pressure 116 mm[Hg] Stephany Pelayo PA-C Work Phone: [facility] 07-05-2024 08:26-0500 Body height 157.5 cm Soto Box DPM FACFA S Work Phone: [facility] 07-05-2024 08:26-0500 Body mass index (BMI) [Ratio] 42.62 kg/m2 Soto Box DPM FACFAS Work Phone: [facility] 07-05-2024 08:26-0500 Body weight 105.69 kg S[place] Box DPM FACFA S Work Phone: [facility] 07-05-2024 08:26-0500 Diastolic blood pressure 75 mm[Hg] Soto Box DPM FACFAS Work Phone: [facility] 07-05-2024 08:26-0500 Heart rate 77 /min Soto Box DPM FACFA S Work Phone: [facility] 07-05-2024 08:26-0500 Systolic blood pressure 128 mm[Hg] Soto Box DPM FACFAS Work Phone: [facility] 05-13-2024 08:32-0500 Body height 157.5 cm Mihai Lavonne [employer]IOR [employer] DEVELOPER Work Phone: [facility] 05-13-2024 08:32-0500 Body mass index (BMI) [Ratio] 51.32 kg/m2 Mihai Lavonne [employer] DEVELOPER Work Phone: [facility] 05-13-2024 08:32-0500 Body weight 127.28 kg Mihai Lavonne [employer]IOR [employer] DEVELOPER Work Phone: [facility] 05-13-2024 08:32-0500 Diastolic blood pressure 109 mm[Hg] Mihai Lavonne [employer]IOR [employer] DEVELOPER Work Phone: [facility] 05-13-2024 08:32-0500 Heart rate 90 /min Mihai Lavonne [employer]IOR [employer] DEVELOPER Work Phone: [facility] 05-13-2024 08:32-0500 Systolic blood pressure 173 mm[Hg] Mihai Elizalde [employer]IOR [employer] DEVELOPER Work Phone: [facility] 04-29-2024 13:41-0500 Respiratory rate 16 /min Ali Kamille DO Work Phone: [facility] 04-29-2024 11:37-0500 Body temperature 97.5 [degF] Ali Kamille DO Work Phone: [facility] 04-29-2024 11:37-0500 Diastolic blood pressure 73 mm[Hg] Ali Kamille DO Work Phone: [facility] 04-29-2024 11:37-0500 Heart rate 78 /min Ali Kamille DO Work Phone: [facility] 04-29-2024 11:37-0500 SaO2% (BldA) [Mass fraction] 98 % Ali Kamille DO Work Phone: [facility] 04-29-2024 11:37-0500 Systolic blood pressure 114 mm[Hg] Ali Kamille DO Work Phone: [facility] 04-29-2024 03:00-0500 Body mass index (BMI) [Ratio] 51.73 kg/m2 Ali Kamille DO Work Phone: [facility] 04-29-2024 03:00-0500 Body weight 128.3 kg Ali Kamille DO Work Phone: [facility] 04-27-2024 01:27-0500 Body height 157.5 cm Ali Kamille DO Work Phone: [facility] 04-04-2024 15:44-0500 Diastolic blood pressure 87 mm[Hg] Ruthy Dong MD Work Phone: [facility] 04-04-2024 15:44-0500 Heart rate 66 /min Ruthy Dong MD Work Phone: [facility] 04-04-2024 15:44-0500 Respiratory rate 18 /min Ruthy Dong MD Work Phone: [facility] 04-04-2024 15:44-0500 SaO2% (BldA) [Mass fraction] 94 % Ruthy Dong MD Work Phone: [facility] 04-04-2024 15:44-0500 Systolic blood pressure 149 mm[Hg] Ruthy Dong MD Work Phone: [facility] 04-04-2024 11:24-0500 Body temperature 97.81 [degF] Ruthy Dong MD Work Phone: [facility] 03-30-2024 04:29-0500 Body mass index (BMI) [Ratio] 49.84 kg/m2 Ruthy Dong MD Work Phone: [facility] 03-30-2024 04:29-0500 Body weight 123.6 kg Ruthy Dong MD Work Phone: [facility] 03-25-2024 01:58-0400 Body height 157.5 cm Ruthy Dong MD Work Phone: [facility] 03-22-2024 11:23-0400 Diastolic blood pressure 94 mm[Hg] Stephany Pelayo PA-C Work Phone: [facility] 03-22-2024 11:23-0400 Systolic blood pressure 142 mm[Hg] Stephany Pelayo PA-C Work Phone: [facility] 03-22-2024 10:41-0400 Body height 157.5 cm Stephany Pelayo PA-C Work Phone: [facility] 03-22-2024 10:41-0400 Heart rate 103 /min Stephany Pelayo PA-C Work Phone: [facility] 03-22-2024 10:41-0400 SaO2% (BldA) [Mass fraction] 98 % Stephany Pelayo PA-C Work Phone: [facility] 02-11-2024 11:41-0400 Diastolic blood pressure 126 mm[Hg] Stephany Pelayo PA-C Work Phone: [facility] 02-11-2024 11:41-0400 Systolic blood pressure 193 mm[Hg] Stephany Pelayo PA-C Work Phone: [facility] 02-11-2024 11:03-0400 Body height 157.5 cm Stephany Pelayo PA-C Work Phone: [facility] 02-11-2024 11:03-0400 Heart rate 89 /min Stephany Pelayo PA-C Work Phone: [facility] 02-11-2024 11:03-0400 SaO2% (BldA) [Mass fraction] 97 % Stephany Pelayo PA-C Work Phone: [facility] 02-02-2024 16:04-0400 Body mass index (BMI) [Ratio] 51.21 kg/m2 Jim Velez DO Work Phone: [facility] 02-02-2024 16:04-0400 Body weight 127.01 kg Jim Velez DO Work Phone: [facility] 02-02-2024 16:04-0400 Diastolic blood pressure 108 mm[Hg] Jim Velez DO Work Phone: [facility] 02-02-2024 16:04-0400 Heart rate 96 /min Jim Velez DO Work Phone: [facility] 02-02-2024 16:04-0400 Respiratory rate 18 /min Jim Velez DO Work Phone: [facility] 02-02-2024 16:04-0400 SaO2% (BldA) [Mass fraction] 96 % Jim Velez DO Work Phone: [facility] 02-02-2024 16:04-0400 Systolic blood pressure 181 mm[Hg] Jim Velez DO Work Phone: [facility] 01-27-2024 13:36-0400 Body height 157.5 cm Rafaela Medrano CNP Work Phone: [facility] Comment on above: per pt 09-04-2024 13:36-0400 Body mass index (BMI) [Ratio] 51.03 kg/m2 Rafaela Medrano [employer] DEVELOPER Work Phone: [facility] 01-27-2024 13:36-0400 Body weight 126.55 kg Rafaela Medrano [employer]IOR [employer] DEVELOPER Work Phone: [facility] 01-27-2024 13:36-0400 Diastolic blood pressure 90 mm[Hg] Rafaela Ventural [employer] DEVELOPER Work Phone: [facility] 01-27-2024 13:36-0400 Heart rate 90 /min Rafaela Ventural [employer]IOR [employer] DEVELOPER Work Phone: [facility] 01-27-2024 13:36-0400 SaO2% (BldA) [Mass fraction] 94 % Rafaela Medrano [employer]IOR [employer] DEVELOPER Work Phone: [facility] 01-27-2024 13:36-0400 Systolic blood pressure 139 mm[Hg] Rafaela Ventural [employer]IOR [employer] DEVELOPER Work Phone: [facility] 01-18-2024 08:56-0400 Respiratory rate 16 /min Harshad Rizzo MD Work Phone: [facility] 01-18-2024 08:18-0400 Body temperature 97.7 [degF] Harshad Rizzo MD Work Phone: [facility] 01-18-2024 08:18-0400 Diastolic blood pressure 78 mm[Hg] Harshad Rizzo MD Work Phone: [facility] 01-18-2024 08:18-0400 Heart rate 65 /min Harshad Rizzo MD Work Phone: [facility] 01-18-2024 08:18-0400 Systolic blood pressure 140 mm[Hg] Harshad Rizzo MD Work Phone: [facility] 01-18-2024 02:58-0400 Body mass index (BMI) [Ratio] 52.62 kg/m2 Harshad Rizzo MD Work Phone: [facility] 01-18-2024 02:58-0400 Body weight 130.5 kg Harshad Rizzo MD Work Phone: [facility] 01-18-2024 02:58-0400 SaO2% (BldA) [Mass fraction] 94 % Harshad Rizzo MD Work Phone: [facility] 01-12-2024 14:36-0400 Body height 157.5 cm Harshad Rizzo MD Work Phone: [facility] 01-12-2024 13:59-0400 Diastolic blood pressure 93 mm[Hg] Stephany Pelayo PA-C Work Phone: [facility] 01-12-2024 13:59-0400 Systolic blood pressure 139 mm[Hg] Stephany Pelayo PA-C Work Phone: [facility] 01-12-2024 13:38-0400 Body height 157.5 cm Stephany Pelayo PA-C Work Phone: [facility] 01-12-2024 13:38-0400 Heart rate 96 /min Stephany Pelayo PA-C Work Phone: [facility] 01-12-2024 13:38-0400 SaO2% (BldA) [Mass fraction] 95 % Stephany Pelayo PA-C Work Phone: [facility] 12-08-2023 13:53-0400 Body mass index (BMI) [Ratio] 47.55 kg/m2 Jim Velez DO Work Phone: [facility] 12-08-2023 13:53-0400 Body weight 117.94 kg Jim Velez DO Work Phone: [facility] 12-08-2023 13:53-0400 Diastolic blood pressure 113 mm[Hg] Jim Velez DO Work Phone: [facility] 12-08-2023 13:53-0400 Heart rate 91 /min Jim Velez DO Work Phone: [facility] 12-08-2023 13:53-0400 Respiratory rate 18 /min Jim Velez DO Work Phone: [facility] 12-08-2023 13:53-0400 SaO2% (BldA) [Mass fraction] 93 % Jim Velez DO Work Phone: [facility] 12-08-2023 13:53-0400 Systolic blood pressure 166 mm[Hg] Jim Agustin DO Work Phone: [facility] 12-02-2023 13:53-0400 Body height 157.5 cm Sahara Sanchez MD Work Phone: [facility] 12-02-2023 13:53-0400 Body mass index (BMI) [Ratio] 49.93 kg/m2 Sahara Sanchez MD Work Phone: [facility] 12-02-2023 13:53-0400 Body weight 123.83 kg Sahara Sanchez MD Work Phone: [facility] 12-02-2023 13:53-0400 Diastolic blood pressure 92 mm[Hg] Sahara Sanchez MD Work Phone: [facility] 12-02-2023 13:53-0400 Heart rate 92 /min Sahara Sanchez MD Work Phone: [facility] 12-02-2023 13:53-0400 Respiratory rate 16 /min Sahara Sanchez MD Work Phone: [facility] 12-02-2023 13:53-0400 Systolic blood pressure 153 mm[Hg] Sahara Sanchez MD Work Phone: [facility] 12-01-2023 15:34-0400 Body height 157.5 cm Stephany Pelayo PA-C Work Phone: [facility] 12-01-2023 15:34-0400 Body temperature 98.01 [degF] Stephany Pelayo PA-C Work Phone: [facility] 12-01-2023 15:34-0400 Diastolic blood pressure 72 mm[Hg] Stephany Pelayo PA-C Work Phone: [facility] 12-01-2023 15:34-0400 Heart rate 106 /min Stephany Pelayo PA-C Work Phone: [facility] 12-01-2023 15:34-0400 SaO2% (BldA) [Mass fraction] 98 % Stephany Gita PA-C Work Phone: [facility] 12-01-2023 15:34-0400 Systolic blood pressure 131 mm[Hg] Stephany Pelayo PA-C Work Phone: [facility] 11-09-2023 15:47-0400 Diastolic blood pressure 99 mm[Hg] Anders London MD Work Phone: [facility] 11-09-2023 15:47-0400 Heart rate 90 /min Anders London MD Work Phone: [facility] 11-09-2023 15:47-0400 Systolic blood pressure 144 mm[Hg] Anders London MD Work Phone: [facility] 10-13-2023 11:49-0400 Diastolic blood pressure 109 mm[Hg] Stephany Pelayo PA-C Work Phone: [facility] 10-13-2023 11:49-0400 Systolic blood pressure 169 mm[Hg] Stephany McCmanuela PA-C Work Phone: [facility] 10-13-2023 11:24-0400 Body temperature 97 [degF] Stephany Pelayo PA-C Work Phone: [facility] 10-13-2023 11:24-0400 Heart rate 93 /min Stephany Pelayo PA-C Work Phone: [facility] 10-13-2023 11:24-0400 SaO2% (BldA) [Mass fraction] 95 % Stephany McCmanuela PA-C Work Phone: [facility] 10-07-2023 15:04-0400 Diastolic blood pressure 91 mm[Hg] Rosario Sanchez MD Work Phone: [facility] 10-07-2023 15:04-0400 Heart rate 98 /min Rosario Sanchez MD Work Phone: [facility] 10-07-2023 15:04-0400 SaO2% (BldA) [Mass fraction] 96 % Rosario Sanchez MD Work Phone: [facility] 10-07-2023 15:04-0400 Systolic blood pressure 169 mm[Hg] Rosario Sanchez MD Work Phone: [facility] 09-16-2023 13:07-0400 Diastolic blood pressure 100 mm[Hg] Virgen Campos MD Work Phone: [facility] 09-16-2023 13:07-0400 Heart rate 97 /min Virgen Campos MD Work Phone: [facility] 09-16-2023 13:07-0400 SaO2% (BldA) [Mass fraction] 97 % Virgen Campos MD Work Phone: [facility] 09-16-2023 13:07-0400 Systolic blood pressure 166 mm[Hg] Virgen Campos MD Work Phone: [facility] 09-03-2023 14:30-0400 Diastolic blood pressure 88 mm[Hg] Stephany Pelayo PA-C Work Phone: [facility] 09-03-2023 14:30-0400 Systolic blood pressure 138 mm[Hg] Stephany Pelayo PA-C Work Phone: [facility] 09-03-2023 13:43-0400 Body height 157.5 cm Stephany Pelayo PA-C Work Phone: [facility] 09-03-2023 13:43-0400 Body mass index (BMI) [Ratio] 50.66 kg/m2 Stephany Pelayo PA-C Work Phone: [facility] 09-03-2023 13:43-0400 Body temperature 97.7 [degF] Stephany Pelayo PA-C Work Phone: [facility] 09-03-2023 13:43-0400 Body weight 125.65 kg Stephany Pelayo PA-C Work Phone: [facility] 09-03-2023 13:43-0400 Heart rate 91 /min Stephany Pelayo PA-C Work Phone: [facility] 09-03-2023 13:43-0400 SaO2% (BldA) [Mass fraction] 98 % Stephany Pelayo PA-C Work Phone: [facility] 08-26-2023 19:31-0400 Diastolic blood pressure 93 mm[Hg] Floyd Mercado MD Work Phone: [facility] 08-26-2023 19:31-0400 Systolic blood pressure 154 mm[Hg] Floyd Mercado MD Work Phone: [facility] 08-26-2023 17:47-0400 Body temperature 97.39 [degF] Floyd Mercado MD Work Phone: [facility] 08-26-2023 17:47-0400 Heart rate 100 /min Floyd Mercado MD Work Phone: [facility] 08-26-2023 17:47-0400 Respiratory rate 15 /min Floyd Mercado MD Work Phone: [facility] 08-26-2023 17:47-0400 SaO2% (BldA) [Mass fraction] 99 % Floyd Mercado MD Work Phone: [facility] 08-03-2023 14:22-0400 Diastolic blood pressure 90 mm[Hg] Rosario Sanchez MD Work Phone: [facility] 08-03-2023 14:22-0400 Heart rate 103 /min Rosario Sanchez MD Work Phone: [facility] 08-03-2023 14:22-0400 Systolic blood pressure 140 mm[Hg] Rosario Sanchez MD Work Phone: [facility] 06-22-2023 14:54-0500 Diastolic blood pressure 91 mm[Hg] Harris Bhat MD Work Phone: [facility] 06-22-2023 14:54-0500 Systolic blood pressure 162 mm[Hg] Harris Bhat MD Work Phone: [facility] 06-22-2023 14:40-0500 Body height 157.5 cm Harris Bhat MD Work Phone: [facility] 06-22-2023 14:40-0500 Body temperature 97.39 [degF] Harris Bhat MD Work Phone: [facility] 06-22-2023 14:40-0500 Heart rate 96 /min Harris Bhat MD Work Phone: [facility] 06-22-2023 14:40-0500 SaO2% (BldA) [Mass fraction] 98 % Harris Bhat MD Work Phone: [facility] 05-15-2023 15:09-0500 Body height 157.5 cm Stephany Pelayo PA-C Work Phone: [facility] 05-15-2023 15:09-0500 Body mass index (BMI) [Ratio] 47.55 kg/m2 Stephany Pelayo PA-C Work Phone: [facility] 05-15-2023 15:09-0500 Body temperature 97.3 [degF] Stephany Pelayo PA-C Work Phone: [facility] 05-15-2023 15:09-0500 Body weight 117.94 kg Stephany Pelayo PA-C Work Phone: [facility] 05-15-2023 15:09-0500 Diastolic blood pressure 78 mm[Hg] Stephany Pelayo PA-C Work Phone: [facility] 05-15-2023 15:09-0500 Heart rate 95 /min Stephany Pelayo PA-C Work Phone: [facility] 05-15-2023 15:09-0500 SaO2% (BldA) [Mass fraction] 97 % Stephany Pelayo PA-C Work Phone: [facility] 05-15-2023 15:09-0500 Systolic blood pressure 138 mm[Hg] Stephany Pelayo PA-C Work Phone: [facility] 05-06-2023 11:40-0500 Diastolic blood pressure 102 mm[Hg] Stephany Pelayo PA-C Work Phone: [facility] 05-06-2023 11:40-0500 Systolic blood pressure 182 mm[Hg] Stephany Pelayo PA-C Work Phone: [facility] 05-06-2023 11:31-0500 Body mass index (BMI) [Ratio] 47.76 kg/m2 Stephany Pelayo PA-C Work Phone: [facility] 05-06-2023 11:31-0500 Body temperature 96.3 [degF] Stephany Pelayo PA-C Work Phone: [facility] 05-06-2023 11:31-0500 Body weight 118.43 kg Stephany Pelayo PA-C Work Phone: [facility] 05-06-2023 11:31-0500 Heart rate 94 /min Stephany Pelayo PA-C Work Phone: [facility] 05-06-2023 11:31-0500 SaO2% (BldA) [Mass fraction] 98 % Stephany Pelayo PA-C Work Phone: [facility] 04-15-2023 15:45-0500 Body temperature 97.81 [degF] Ama Wilcox RN [facility] 04-15-2023 15:45-0500 Diastolic blood pressure 108 mm[Hg] Ama Wilcox RN [facility] 04-15-2023 15:45-0500 Heart rate 72 /min Ama Wilcox RN [facility] 04-15-2023 15:45-0500 Respiratory rate 18 /min Ama Wilcox RN [facility] 04-15-2023 15:45-0500 SaO2% (BldA) [Mass fraction] 96 % Ama Wilcox RN [facility] 04-15-2023 15:45-0500 Systolic blood pressure 136 mm[Hg] Ama Wilcox RN [facility] 04-15-2023 15:14-0500 Body temperature 97.5 [degF] Keyla Johnson [facility] 04-15-2023 15:14-0500 Diastolic blood pressure 108 mm[Hg] Keyla Johnson [facility] 04-15-2023 15:14-0500 Heart rate 87 /min Keyla Johnson [facility] 04-15-2023 15:14-0500 Respiratory rate 13 /min Keyla Johnson [facility] 04-15-2023 15:14-0500 SaO2% (BldA) [Mass fraction] 97 % Keyla Johnson [facility] 04-15-2023 15:14-0500 Systolic blood pressure 136 mm[Hg] Keyla Johnson [facility] 04-14-2023 16:30-0500 Body temperature 98.1 [degF] Cece Colin [facility] 04-14-2023 16:30-0500 Diastolic blood pressure 77 mm[Hg] Cece Colin [facility] 04-14-2023 16:30-0500 Heart rate 90 /min Cece Colin [facility] 04-14-2023 16:30-0500 Respiratory rate 17 /min Cece Colin [facility] 04-14-2023 16:30-0500 SaO2% (BldA) [Mass fraction] 98 % Cece Colin [facility] 04-14-2023 16:30-0500 Systolic blood pressure 148 mm[Hg] Cece Colin [facility] 04-14-2023 09:33-0500 Body temperature 98.4 [degF] Nikko Pratt [facility] 04-14-2023 09:33-0500 Diastolic blood pressure 99 mm[Hg] Nikko Pratt [facility] 04-14-2023 09:33-0500 Heart rate 77 /min Nikko Pratt [facility] 04-14-2023 09:33-0500 Respiratory rate 17 /min Nikko Pratt [facility] 04-14-2023 09:33-0500 SaO2% (BldA) [Mass fraction] 96 % Nikko Pratt [facility] 04-14-2023 09:33-0500 Systolic blood pressure 160 mm[Hg] Nikko Pratt [employer]TEGRATION A[employer] [facility] 04-08-2023 12:04-0500 Body temperature 98.1 [degF] Lisa Padron PT [facility] 04-08-2023 12:04-0500 Diastolic blood pressure 74 mm[Hg] Lisa Padron PT [facility] 04-08-2023 12:04-0500 Heart rate 78 /min iLsa Padron PT [facility] 04-08-2023 12:04-0500 Respiratory rate 13 /min Lisa Padron PT [facility] 04-08-2023 12:04-0500 SaO2% (BldA) [Mass fraction] 99 % Lisa Padron PT [facility] 04-08-2023 12:04-0500 Systolic blood pressure 134 mm[Hg] Lisa Padron PT [facility] 04-08-2023 11:18-0500 Body temperature 98.71 [degF] Carlitos Carrera [facility] 04-08-2023 11:18-0500 Diastolic blood pressure 84 mm[Hg] Carlitos Carrera [facility] 04-08-2023 11:18-0500 Heart rate 76 /min Carlitos Carrera [facility] 04-08-2023 11:18-0500 Respiratory rate 16 /min Carlitos Carrera [facility] 04-08-2023 11:18-0500 SaO2% (BldA) [Mass fraction] 99 % Carlitos Carrera [facility] 04-08-2023 11:18-0500 Systolic blood pressure 126 mm[Hg] Carlitos Carrera [facility] 04-01-2023 00:00-0500 Body temperature 98.6 [degF] Kassidy Wick RN [facility] 04-01-2023 00:00-0500 Diastolic blood pressure 94 mm[Hg] Kassidy Wick RN [facility] 04-01-2023 00:00-0500 Heart rate 60 /min Kassidy Wick RN [facility] 04-01-2023 00:00-0500 Respiratory rate 16 /min Kassidy Wick RN [facility] 04-01-2023 00:00-0500 SaO2% (BldA) [Mass fraction] 100 % Kassidy Wick RN [facility] 04-01-2023 00:00-0500 Systolic blood pressure 142 mm[Hg] Kassidy Wick RN [facility] 03-30-2023 11:57-0500 Body temperature 97.81 [degF] Harshad Rizzo MD Work Phone: [facility] 03-30-2023 11:57-0500 Diastolic blood pressure 62 mm[Hg] Harshad Rizzo MD Work Phone: [facility] 03-30-2023 11:57-0500 Heart rate 65 /min Harshad Rizzo MD Work Phone: [facility] 03-30-2023 11:57-0500 SaO2% (BldA) [Mass fraction] 98 % Harshad Rizzo MD Work Phone: [facility] 03-30-2023 11:57-0500 Systolic blood pressure 97 mm[Hg] Harshad Rizzo MD Work Phone: [facility] 03-30-2023 07:23-0500 Respiratory rate 15 /min Harshad Rizzo MD Work Phone: [facility] 03-29-2023 14:38-0500 Body height 157.5 cm Harshad Rizzo MD Work Phone: [facility] 03-29-2023 14:38-0500 Body mass index (BMI) [Ratio] 46.81 kg/m2 Harshad Rizzo MD Work Phone: [facility] 03-29-2023 14:38-0500 Body weight 116.1 kg Harshad Rizzo MD Work Phone: [facility] 02-20-2023 08:00-0400 Respiratory rate 16 /min Harshad Rizzo MD Work Phone: [facility] 02-20-2023 07:36-0400 Body temperature 97.9 [degF] Harshad Rizzo MD Work Phone: [facility] 02-20-2023 07:36-0400 Diastolic blood pressure 78 mm[Hg] Harshad Rizzo MD Work Phone: [facility] 02-20-2023 07:36-0400 Heart rate 89 /min Harshad Rizzo MD Work Phone: [facility] 02-20-2023 07:36-0400 SaO2% (BldA) [Mass fraction] 99 % Harshad Rizzo MD Work Phone: [facility] 02-20-2023 07:36-0400 Systolic blood pressure 111 mm[Hg] Harshad Rizzo MD Work Phone: [facility] 02-20-2023 04:34-0400 Body mass index (BMI) [Ratio] 46.53 kg/m2 Harshad Rizzo MD Work Phone: [facility] 02-20-2023 04:34-0400 Body weight 115.4 kg Harshad Rizzo MD Work Phone: [facility] 02-18-2023 02:46-0400 Body height 157.5 cm Harshad Rizzo MD Work Phone: [facility] 02-09-2023 15:24-0400 Body height 157.5 cm Josué Mellis DO Work Phone: [facility] 02-09-2023 15:24-0400 Body mass index (BMI) [Ratio] 45.73 kg/m2 Josué Mellis DO Work Phone: [facility] 02-09-2023 15:24-0400 Body weight 113.4 kg Josué Mellis DO Work Phone: [facility] 10-07-2022 06:43-0400 Diastolic blood pressure 51 mm[Hg] Jocelyn Bowen MD Work Phone: [facility] 10-07-2022 06:43-0400 Heart rate 62 /min Jocelyn Bowen MD Work Phone: [facility] 10-07-2022 06:43-0400 SaO2% (BldA) [Mass fraction] 96 % Jocelyn Bowen MD Work Phone: [facility] 10-07-2022 06:43-0400 Systolic blood pressure 99 mm[Hg] Jocelyn Bowen MD Work Phone: [facility] 10-06-2022 19:48-0400 Body temperature 97.59 [degF] Jocelyn Bowen MD Work Phone: [facility] 10-06-2022 19:48-0400 Respiratory rate 17 /min Jocelyn Bowen MD Work Phone: [facility] 10-06-2022 18:21-0400 Diastolic blood pressure 118 mm[Hg] Preston Jonese [facility] 10-06-2022 18:21-0400 Heart rate 109 /min Preston Charli [facility] 10-06-2022 18:21-0400 Mean blood pressure 129 mm[Hg] Preston Charli [facility] 10-06-2022 18:21-0400 Respiratory rate 18 /min Preston Charli [facility] 10-06-2022 18:21-0400 SaO2% (BldA) [Mass fraction] 99 % Preston Charli [facility] 10-06-2022 18:21-0400 Systolic blood pressure 152 mm[Hg] Preston Charli [facility] 10-06-2022 17:00-0400 Diastolic blood pressure 113 mm[Hg] Preston Charli [facility] 10-06-2022 17:00-0400 Heart rate 106 /min Preston Jonese [facility] 10-06-2022 17:00-0400 Mean blood pressure 126 mm[Hg] Preston Charli [facility] 10-06-2022 17:00-0400 Respiratory rate 16 /min Preston Jonese [facility] 10-06-2022 17:00-0400 SaO2% (BldA) [Mass fraction] 97 % Preston Charli [facility] 05-15-2023 16:00-0400 Diastolic blood pressure 100 mm[Hg] Preston Lugo [facility] 10-06-2022 16:00-0400 Mean blood pressure 109 mm[Hg] Preston Lugo [facility] 10-06-2022 16:00-0400 SaO2% (BldA) [Mass fraction] 100 % Preston Lugo [facility] 10-06-2022 16:00-0400 Systolic blood pressure 126 mm[Hg] Preston Lugo [facility] 10-06-2022 14:26-0400 Body temperature 98.24 [degF] Preston Lugo [facility] 10-06-2022 14:26-0400 Heart rate 112 /min Preston Lugo [facility] 09-15-2022 15:00-0400 Hourly Rounding Pepe Kinza [facility] 09-15-2022 15:00-0400 Promise to Return Pepe Kinza [facility] 09-15-2022 14:00-0400 Hourly Rounding Pepe Kinza [facility] 09-15-2022 14:00-0400 Promise to Return Pepe Kinza [facility] 09-15-2022 13:00-0400 Hourly Rounding Pepe Kinza [facility] 09-15-2022 13:00-0400 Promise to Return Pepe Kinza [facility] 09-15-2022 12:00-0400 Blood Pressure Location Pepe Kinza [facility] 09-15-2022 12:00-0400 Body temperature 98.06 [degF] Pepe Kinza [facility] 09-15-2022 12:00-0400 Diastolic blood pressure 80 mm[Hg] Pepe Kinza [facility] 09-15-2022 12:00-0400 Heart rate 59 /min Pepe Kinza [facility] 09-15-2022 12:00-0400 Mean blood pressure 94 mm[Hg] Pepe Kinza [facility] 09-15-2022 12:00-0400 Respiratory rate 16 /min Pepe Kinza [facility] 09-15-2022 12:00-0400 SaO2% (BldA) [Mass fraction] 96 % Pepe Kinza [facility] 09-15-2022 12:00-0400 Systolic blood pressure 122 mm[Hg] Pepe Kinza [facility] 09-15-2022 08:35-0400 Diastolic blood pressure 81 mm[Hg] Pepe Kinza [facility] 09-15-2022 08:35-0400 Heart rate 72 /min Pepe Kinza [facility] 09-15-2022 08:35-0400 Systolic blood pressure 170 mm[Hg] Pepe Kinza [facility] 09-15-2022 08:00-0400 Heart rate 68 /min Pepe Kinza [facility] 09-15-2022 08:00-0400 Mean blood pressure 111 mm[Hg] Pepe Kinza [facility] 09-15-2022 08:00-0400 SaO2% (BldA) [Mass fraction] 94 % Pepe Kinza [facility] 09-15-2022 01:00-0400 Body temperature 97.88 [degF] Pepe Kinza [facility] 09-15-2022 01:00-0400 Heart rate 61 /min Pepe Kinza [facility] 09-15-2022 01:00-0400 SaO2% (BldA) [Mass fraction] 96 % Pepe Kinza [facility] 09-14-2022 16:00-0400 Blood Pressure Location Pepe Kinza [facility] 09-14-2022 16:00-0400 Heart rate 94 /min Pepe Kinza [facility] 09-14-2022 16:00-0400 Mean blood pressure 135 mm[Hg] Pepe Kinza [facility] 09-14-2022 12:00-0400 Heart rate 106 /min Pepe Kinza [facility] 09-14-2022 07:00-0400 Heart rate 90 /min Pepe Kinza [facility] 09-13-2022 23:58-0400 Heart rate 91 /min Pepe Kinza [facility] 09-13-2022 21:01-0400 Heart rate 92 /min Pepe Kinza [facility] 09-13-2022 16:08-0400 gluc 132 mg/dL Pepe Kinza [facility] 09-13-2022 12:30-0400 gluc 85 mg/dL Pepe Kinza [facility] 09-13-2022 07:21-0400 gluc 122 mg/dL Pepe Kinza [facility] 09-12-2022 19:20-0400 Mean blood pressure 114 mm[Hg] Pepe Clearyer [facility] 09-12-2022 16:45-0400 Respiratory rate 18 /min Pepe Clearyer [facility] 09-12-2022 07:12-0400 Body height 157.48 cm [employer] Kip Soviak Work Phone: [facility] 09-12-2022 07:12-0400 Body temperature 98 [degF] [employer] Kip Soviak Work Phone: [facility] 09-12-2022 07:12-0400 Body weight 113.39 kg [employer] Kip Soviak Work Phone: [facility] 09-12-2022 07:12-0400 Diastolic blood pressure 98 mm[Hg] [employer] Kip Soviak Work Phone: [facility] 09-12-2022 07:12-0400 Heart rate 98 /min [employer] Kip Soviak Work Phone: [facility] 09-12-2022 07:12-0400 Respiratory rate 16 /min [employer] Kip Soviak Work Phone: [facility] 09-12-2022 07:12-0400 SaO2% (BldA) [Mass fraction] 97 % [employer] Kip Soviak Work Phone: [facility] 09-12-2022 07:12-0400 Systolic blood pressure 144 mm[Hg] [employer] Kip Soviak Work Phone: [facility] 08-22-2022 14:55-0400 Body temperature 98.2 [degF] [employer] Kip Soviak Work Phone: [facility] 08-22-2022 14:55-0400 Diastolic blood pressure 90 mm[Hg] [employer] Kip Soviak Work Phone: [facility] 08-22-2022 14:55-0400 Heart rate 77 /min [employer] Kip Soviak Work Phone: [facility] 08-22-2022 14:55-0400 Respiratory rate 20 /min [employer] Kip Soviak Work Phone: [facility] 08-22-2022 14:55-0400 SaO2% (BldA) [Mass fraction] 96 % [employer] Kip Soviak Work Phone: [facility] 08-22-2022 14:55-0400 Systolic blood pressure 144 mm[Hg] [employer] Kip Soviak Work Phone: [facility] 08-22-2022 06:00-0400 Body weight 118 kg [employer] Kip Soviak Work Phone: [facility] 08-20-2022 16:45-0400 Body height 157.48 cm [employer] Kip Soviak Work Phone: [facility] 08-20-2022 02:34-0400 Diastolic blood pressure 96 mm[Hg] [employer] Kip Soviak Work Phone: [facility] 08-20-2022 02:34-0400 Heart rate 72 /min [employer] Kip Soviak Work Phone: [facility] 08-20-2022 02:34-0400 Respiratory rate 18 /min [employer] Kip Soviak Work Phone: [facility] 08-20-2022 02:34-0400 SaO2% (BldA) [Mass fraction] 100 % [employer] Kip Soviak Work Phone: [facility] 08-20-2022 02:34-0400 Systolic blood pressure 194 mm[Hg] [employer] Kip Soviak Work Phone: [facility] 08-19-2022 21:42-0400 Body height 157.48 cm [employer] Kip Soviak Work Phone: [facility] 08-19-2022 21:42-0400 Body temperature 97.6 [degF] [employer] Laurent Soviak Work Phone: [facility] 08-19-2022 21:42-0400 Body weight 114.1 kg [employer] Laurent Soviak Work Phone: [facility] 08-19-2022 20:27-0400 Diastolic blood pressure 136 mm[Hg] Santos Velez [facility] 08-19-2022 20:27-0400 Heart rate 104 /min Santos Velez [facility] 08-19-2022 20:27-0400 Mean blood pressure 154 mm[Hg] Santos Velez [facility] 08-19-2022 20:27-0400 Respiratory rate 23 /min Santos Velez [facility] 08-19-2022 20:27-0400 SaO2% (BldA) [Mass fraction] 97 % Santos Velez [facility] 08-19-2022 20:27-0400 Systolic blood pressure 189 mm[Hg] Santos Velez [facility] 08-19-2022 18:00-0400 Diastolic blood pressure 98 mm[Hg] Santos Velez [facility] 08-19-2022 18:00-0400 Respiratory rate 18 /min Santos Velez [facility] 08-19-2022 18:00-0400 Systolic blood pressure 164 mm[Hg] Santos Velez [facility] 08-19-2022 17:04-0400 Body temperature 97.7 [degF] Santos Velez [facility] 08-19-2022 17:04-0400 Diastolic blood pressure 124 mm[Hg] Santos Velez [facility] 08-19-2022 17:04-0400 Heart rate 108 /min Santos Velez [facility] 08-19-2022 17:04-0400 Respiratory rate 16 /min Santos Velez [facility] 08-19-2022 17:04-0400 SaO2% (BldA) [Mass fraction] 98 % Santos Velez [facility] 08-19-2022 17:04-0400 Systolic blood pressure 183 mm[Hg] Santos Velez [facility] 06-02-2022 20:00-0500 Diastolic blood pressure 88 mm[Hg] [facility] 06-02-2022 20:00-0500 Heart rate 92 /min [facility] 06-02-2022 20:00-0500 Mean blood pressure 109 mm[Hg] [facility] 06-02-2022 20:00-0500 Respiratory rate 17 /min [facility] 06-02-2022 20:00-0500 SaO2% (BldA) [Mass fraction] 100 % [facility] 06-02-2022 20:00-0500 Systolic blood pressure 150 mm[Hg] [facility] 06-02-2022 19:00-0500 Diastolic blood pressure 95 mm[Hg] [facility] 06-02-2022 19:00-0500 Heart rate 97 /min [facility] 06-02-2022 19:00-0500 Mean blood pressure 115 mm[Hg] [facility] 06-02-2022 19:00-0500 SaO2% (BldA) [Mass fraction] 99 % [facility] 06-02-2022 19:00-0500 Systolic blood pressure 154 mm[Hg] [facility] 06-02-2022 18:00-0500 Diastolic blood pressure 94 mm[Hg] [facility] 06-02-2022 18:00-0500 Heart rate 96 /min [facility] 06-02-2022 18:00-0500 Mean blood pressure 122 mm[Hg] [facility] 06-02-2022 18:00-0500 SaO2% (BldA) [Mass fraction] 98 % [facility] 06-02-2022 18:00-0500 Systolic blood pressure 178 mm[Hg] [facility] 06-02-2022 15:50-0500 Body temperature 97.7 [degF] [facility] 06-02-2022 15:50-0500 Heart rate 100 /min [facility] 06-02-2022 15:50-0500 Respiratory rate 18 /min [facility] 05-15-2022 16:18-0500 Body temperature 98.24 [degF] Santos Velez [facility] 05-15-2022 16:18-0500 Diastolic blood pressure 85 mm[Hg] Santos Velez [facility] 05-15-2022 16:18-0500 Heart rate 99 /min Santos Velez [facility] 05-15-2022 16:18-0500 Respiratory rate 18 /min Santos Velez [facility] 05-15-2022 16:18-0500 SaO2% (BldA) [Mass fraction] 97 % Santos Velez [facility] 05-15-2022 16:18-0500 Systolic blood pressure 135 mm[Hg] Santos Velez [facility] 04-09-2022 10:00-0500 Hourly Rounding Ashutosh SAILAJA [facility] 04-09-2022 10:00-0500 Promise to Return Ashutosh SAILAJA [facility] 04-09-2022 09:00-0500 Hourly Rounding Ashutosh SAILAJA [facility] 04-09-2022 09:00-0500 Promise to Return Ashutosh SAILAJA [facility] 04-09-2022 08:51-0500 Diastolic blood pressure 64 mm[Hg] Ashutosh SAILAJA [facility] 04-09-2022 08:51-0500 Systolic blood pressure 91 mm[Hg] Ashutosh SAILAJA [facility] 04-09-2022 08:19-0500 Heart rate 63 /min Ashutosh SAILAJA [facility] 04-09-2022 08:19-0500 Respiratory rate 18 /min Ashutosh SAILAJA [facility] 04-09-2022 08:14-0500 Heart rate 61 /min Ashutosh SAILAJA [facility] 04-09-2022 08:14-0500 Respiratory rate 18 /min Ashutosh SAILAJA [facility] 04-09-2022 08:03-0500 Blood Pressure Location Ashutosh SAILAJA [facility] 04-09-2022 08:03-0500 Body temperature 97.52 [degF] Ashutosh SAILAJA [facility] 04-09-2022 08:03-0500 BP/Pulse Patient Position Ashutoshnickie MORELOSSLIN [facility] 04-09-2022 08:03-0500 Diastolic blood pressure 64 mm[Hg] Ashutosh SAILAJA [facility] 04-09-2022 08:03-0500 Heart rate 62 /min Ashutosh SAILAJA [facility] 04-09-2022 08:03-0500 Mean blood pressure 73 mm[Hg] Ashutosh SAILAJA [facility] 04-09-2022 08:03-0500 Respiratory rate 18 /min Ashutosh SAILAJA [facility] 04-09-2022 08:03-0500 SaO2% (BldA) [Mass fraction] 96 % Ashutoshnickie MORELOSSLIN [facility] 04-09-2022 08:03-0500 Systolic blood pressure 91 mm[Hg] Ashutosh SAILAJA [facility] 04-09-2022 08:00-0500 Hourly Rounding Ashutoshnickie MORELOSSLIN [facility] 04-09-2022 08:00-0500 Promise to Return Ashutoshnickie MORELOSSLIN [facility] 04-09-2022 04:30-0500 Blood Pressure Location Ashutosh SAILAJA [facility] 04-09-2022 04:30-0500 Body temperature 96.8 [degF] Ashutosh SAILAJA [facility] 04-09-2022 04:30-0500 BP/Pulse Patient Position Ashutosh SAILAJA [facility] 04-09-2022 04:30-0500 Diastolic blood pressure 76 mm[Hg] Ashutosh SAILAJA [facility] 04-09-2022 04:30-0500 SaO2% (BldA) [Mass fraction] 95 % Ashutosh MORELOSSLIN [facility] 04-09-2022 04:30-0500 Systolic blood pressure 109 mm[Hg] Ashutosh BENSONLIN [facility] 04-08-2022 22:36-0500 Blood Pressure Location Ashutosh MENARD [facility] 04-08-2022 22:36-0500 Body temperature 97.16 [degF] Ashutosh MORELOSSLIN [facility] 04-08-2022 22:36-0500 BP/Pulse Patient Position Ashutosh MENARD [facility] 04-08-2022 22:36-0500 Mean blood pressure 91 mm[Hg] Ashutosh MENARD [facility] 04-08-2022 22:36-0500 SaO2% (BldA) [Mass fraction] 97 % Ashutosh MENARD [facility] 04-08-2022 20:27-0500 Body temperature 97.7 [degF] Ashutosh MENARD [facility] 04-08-2022 20:27-0500 Mean blood pressure 97 mm[Hg] Ashutoshnickie MORELOSSLIN [facility] 04-08-2022 16:55-0500 Mean blood pressure 66 mm[Hg] Ashutosh MORELOSSLIN [facility] 04-08-2022 12:18-0500 gluc 133 mg/dL Ashutoshnickie MORELOSSLIN [facility] 04-08-2022 11:39-0500 Body temperature 98.06 [degF] Ashutosh SAILAJA [facility] 04-08-2022 04:35-0500 Mean blood pressure 73 mm[Hg] Ashutosh SAILAJA [facility] 04-08-2022 04:00-0500 gluc 124 mg/dL Ashutosh SAILAJA [facility] 04-08-2022 01:00-0500 Mean blood pressure 70 mm[Hg] Ashutosh SAILAJA [facility] 04-07-2022 16:28-0500 gluc 383 mg/dL Ashutosh SAILAJA [facility] 04-07-2022 07:00-0500 Heart rate 80 /min Ashutosh SAILAJA [facility] 04-07-2022 03:54-0500 Heart rate 95 /min Ashutosh SAILAJA [facility] 04-07-2022 03:02-0500 Diastolic Blood Pressure Invasive 103 mm[Hg] Ashutosh SAILAJA [facility] 04-07-2022 03:02-0500 Heart rate 95 /min Ashutosh SAILAJA [facility] 04-07-2022 03:02-0500 Mean blood pressure 120 mm[Hg] Ashutosh SAILAJA [facility] 04-07-2022 03:02-0500 Respiratory rate 18 /min Ashutosh SAILAJA [facility] 04-07-2022 03:02-0500 Systolic blood pressure 153 mm[Hg] Ashutosh SAILAJA [facility] 04-07-2022 02:28-0500 Diastolic Blood Pressure Invasive 107 mm[Hg] Ashutosh SAILAJA [facility] 04-07-2022 02:28-0500 Mean blood pressure 119 mm[Hg] Ashutosh BENSONLIN [facility] 04-07-2022 02:28-0500 Respiratory rate 12 /min Ashutosh MENARD [facility] 04-07-2022 02:28-0500 Systolic blood pressure 143 mm[Hg] Ashutosh MENARD [facility] 04-07-2022 01:05-0500 Diastolic Blood Pressure Invasive 98 mm[Hg] Ashutosh MENARD [facility] 04-07-2022 01:05-0500 Mean blood pressure 111 mm[Hg] Ashutosh MENARD [facility] 04-07-2022 01:05-0500 Respiratory rate 17 /min Ashutosh MENARD [facility] 04-07-2022 01:05-0500 Systolic blood pressure 138 mm[Hg] Ashutosh MENARD [facility] 02-27-2022 17:30-0400 Diastolic blood pressure 93 mm[Hg] Gui Gilmar [facility] 02-27-2022 17:30-0400 Heart rate 100 /min Gui Gilmar [facility] 02-27-2022 17:30-0400 Mean blood pressure 103 mm[Hg] Gui Gilmar [facility] 02-27-2022 17:30-0400 Respiratory rate 13 /min Gui Gilmar [facility] 02-27-2022 17:30-0400 SaO2% (BldA) [Mass fraction] 99 % Gui Gilmar [facility] 02-27-2022 17:30-0400 Systolic blood pressure 124 mm[Hg] Gui Gilmar [facility] 02-27-2022 17:00-0400 Diastolic blood pressure 148 mm[Hg] Gui Gilmar [facility] 02-27-2022 17:00-0400 Heart rate 92 /min Gui Gilmar [facility] 02-27-2022 17:00-0400 Mean blood pressure 151 mm[Hg] Gui Gilmar [facility] 02-27-2022 17:00-0400 SaO2% (BldA) [Mass fraction] 98 % Gui Gilmar [facility] 02-27-2022 17:00-0400 Systolic blood pressure 158 mm[Hg] Gui Gilmar [facility] 02-27-2022 16:30-0400 Diastolic blood pressure 112 mm[Hg] Gui Gilmar [facility] 02-27-2022 16:30-0400 Heart rate 96 /min Gui Gilmar [facility] 02-27-2022 16:30-0400 Mean blood pressure 130 mm[Hg] Gui Gilmar [facility] 02-27-2022 16:30-0400 Respiratory rate 24 /min Gui Gilmar [facility] 02-27-2022 16:30-0400 SaO2% (BldA) [Mass fraction] 97 % Gui Gilmar [facility] 02-27-2022 16:30-0400 Systolic blood pressure 167 mm[Hg] Gui Gilmar [facility] 02-27-2022 12:31-0400 gluc 256 mg/dL Gui Gilmar [facility] 02-27-2022 12:31-0400 gluc Gui Schafer [facility] 02-27-2022 11:57-0400 Body temperature 97.88 [degF] Gui Gilmar [facility] 02-27-2022 11:57-0400 Heart rate 99 /min Gui Gilmar [facility] 02-27-2022 11:57-0400 Respiratory rate 18 /min Gui Gilmar [facility] 02-21-2022 14:53-0400 Body temperature 98.24 [degF] Santos Velez [facility] 02-21-2022 14:53-0400 Diastolic blood pressure 110 mm[Hg] Santos Agustin [facility] 02-21-2022 14:53-0400 Heart rate 100 /min Santos Velez [facility] 02-21-2022 14:53-0400 Respiratory rate 18 /min Santos Velez [facility] 02-21-2022 14:53-0400 SaO2% (BldA) [Mass fraction] 97 % Santos Agustin [facility] 02-21-2022 14:53-0400 Systolic blood pressure 177 mm[Hg] Santos Agustin [facility] 01-24-2022 14:21-0400 Diastolic blood pressure 101 mm[Hg] Preston Lugo [facility] 01-24-2022 14:21-0400 Heart rate 89 /min Preston Lugo [facility] 01-24-2022 14:21-0400 Mean blood pressure 113 mm[Hg] Preston Lugo [facility] 01-24-2022 14:21-0400 Respiratory rate 16 /min Preston Jonese [facility] 01-24-2022 14:21-0400 SaO2% (BldA) [Mass fraction] 99 % Preston Charli [facility] 01-24-2022 14:21-0400 Systolic blood pressure 136 mm[Hg] Preston Charli [facility] 01-24-2022 12:55-0400 Diastolic blood pressure 100 mm[Hg] Preston Charli [facility] 01-24-2022 12:55-0400 Heart rate 87 /min Preston Charli [facility] 01-24-2022 12:55-0400 Mean blood pressure 112 mm[Hg] Preston Charli [facility] 01-24-2022 12:55-0400 Respiratory rate 16 /min Preston Charli [facility] 01-24-2022 12:55-0400 SaO2% (BldA) [Mass fraction] 99 % Preston Charli [facility] 01-24-2022 12:55-0400 Systolic blood pressure 137 mm[Hg] Preston Charli [facility] 01-24-2022 12:30-0400 Hourly Rounding Preston Jonese [facility] 01-24-2022 12:30-0400 Promise to Return Preston Jonese [facility] 01-24-2022 10:46-0400 Body temperature 98.78 [degF] Preston Charli [facility] 01-24-2022 10:46-0400 Diastolic blood pressure 86 mm[Hg] Preston Charli [facility] 01-24-2022 10:46-0400 Heart rate 89 /min Preston Lugo [facility] 01-24-2022 10:46-0400 Mean blood pressure 100 mm[Hg] Preston Lugo [facility] 01-24-2022 10:46-0400 Respiratory rate 18 /min Preston Lugo [facility] 01-24-2022 10:46-0400 SaO2% (BldA) [Mass fraction] 99 % Preston Lugo [facility] 01-24-2022 10:46-0400 Systolic blood pressure 129 mm[Hg] Preston Lugo [facility] 01-09-2022 22:00-0400 Hourly Rounding [facility] 01-09-2022 22:00-0400 Promise to Return [facility] 01-09-2022 21:47-0400 Hourly Rounding [facility] 01-09-2022 21:47-0400 Promise to Return [facility] 01-09-2022 20:00-0400 Hourly Rounding [facility] 01-09-2022 20:00-0400 Promise to Return [facility] 01-09-2022 18:00-0400 Diastolic blood pressure 98 mm[Hg] [facility] 01-09-2022 18:00-0400 Heart rate 94 /min [facility] 01-09-2022 18:00-0400 Mean blood pressure 115 mm[Hg] [facility] 01-09-2022 18:00-0400 SaO2% (BldA) [Mass fraction] 98 % [facility] 01-09-2022 18:00-0400 Systolic blood pressure 149 mm[Hg] [facility] 01-09-2022 15:38-0400 Body temperature 98.78 [degF] [facility] 01-09-2022 15:38-0400 Diastolic blood pressure 129 mm[Hg] [facility] 01-09-2022 15:38-0400 Heart rate 92 /min [facility] 01-09-2022 15:38-0400 SaO2% (BldA) [Mass fraction] 99 % [facility] 01-09-2022 15:38-0400 Systolic blood pressure 168 mm[Hg] [facility] 01-09-2022 15:32-0400 SaO2% (BldA) [Mass fraction] 99 % [facility] 01-09-2022 15:28-0400 Blood Pressure Location [facility] 01-09-2022 15:28-0400 BP/Pulse Patient Position [facility] 01-09-2022 15:28-0400 Diastolic blood pressure 129 mm[Hg] [facility] 01-09-2022 15:28-0400 Heart rate 92 /min [facility] 01-09-2022 15:28-0400 Mean blood pressure 142 mm[Hg] [facility] 01-09-2022 15:28-0400 Systolic blood pressure 168 mm[Hg] [facility] 01-09-2022 14:56-0400 Heart rate 93 /min [facility] 01-09-2022 14:56-0400 Mean blood pressure 133 mm[Hg] [facility] 01-09-2022 14:56-0400 Respiratory rate 16 /min [facility] 01-09-2022 14:15-0400 Respiratory rate 18 /min [facility] 01-09-2022 14:00-0400 Mean blood pressure 158 mm[Hg] [facility] 01-09-2022 13:20-0400 Heart rate 97 /min [facility] 01-09-2022 12:45-0400 Heart rate 102 /min [facility] 01-09-2022 12:15-0400 Body temperature 97.88 [degF] [facility] 01-09-2022 12:15-0400 Respiratory rate 20 /min [facility] 12-12-2021 16:48-0400 Blood Pressure Location Breannaafia [facility] 12-12-2021 16:48-0400 Body temperature 98.06 [degF] Breanna [facility] 12-12-2021 16:48-0400 Diastolic blood pressure 82 mm[Hg] Breanna Gu [facility] 12-12-2021 16:48-0400 Heart rate 100 /min Breannaafia [facility] 12-12-2021 16:48-0400 SaO2% (BldA) [Mass fraction] 97 % Breannaafia [facility] 12-12-2021 16:48-0400 Systolic blood pressure 136 mm[Hg] Breanna Gu [facility] 12-08-2021 15:56-0400 Diastolic blood pressure 75 mm[Hg] Antoine Sosa MD Work Phone: [facility] [employer] 12-08-2021 15:56-0400 Heart rate 100 /min Antoine Sosa MD Work Phone: [email or web address] 12-08-2021 15:56-0400 Respiratory rate 16 /min Antoine Sosa MD Work Phone: [email or web address] 12-08-2021 15:56-0400 SaO2% (BldA) [Mass fraction] 98 % Antoine Sosa MD Work Phone: [email or web address] 12-08-2021 15:56-0400 Systolic blood pressure 104 mm[Hg] Antoine Sosa MD Work Phone: [email or web address] 12-08-2021 15:19-0400 Body height 157.5 cm Antoine Sosa MD Work Phone: [email or web address] 12-08-2021 15:19-0400 Body mass index (BMI) [Ratio] 45.73 kg/m2 Antoine Sosa MD Work Phone: [email or web address] 12-08-2021 15:19-0400 Body temperature 98.6 [degF] Antoine Sosa MD Work Phone: [email or web address] 12-08-2021 15:19-0400 Body weight 113.4 kg Antoine Sosa MD Work Phone: [email or web address] 12-08-2021 12:44-0400 Diastolic blood pressure 108 mm[Hg] Santos Moreno [facility] 12-08-2021 12:44-0400 Heart rate 99 /min Santos Josh [facility] 12-08-2021 12:44-0400 Mean blood pressure 127 mm[Hg] Santos Moreno [facility] 12-08-2021 12:44-0400 Respiratory rate 17 /min Santos Moreno [facility] 12-08-2021 12:44-0400 SaO2% (BldA) [Mass fraction] 98 % Santos Moreno [facility] 12-08-2021 12:44-0400 Systolic blood pressure 166 mm[Hg] Santos Josh [facility] 12-08-2021 12:20-0400 Diastolic blood pressure 83 mm[Hg] Santos Josh [facility] 12-08-2021 12:20-0400 Heart rate 88 /min Santos Josh [facility] 12-08-2021 12:20-0400 Mean blood pressure 93 mm[Hg] Santos Josh [facility] 12-08-2021 12:20-0400 Respiratory rate 17 /min Santos Josh [facility] 12-08-2021 12:20-0400 Respiratory rate 18 /min Santos Josh [facility] 12-08-2021 12:20-0400 SaO2% (BldA) [Mass fraction] 99 % Santos Josh [facility] 12-08-2021 12:20-0400 Systolic blood pressure 114 mm[Hg] Santos Josh [facility] 12-08-2021 11:41-0400 Diastolic blood pressure 87 mm[Hg] Santos Josh [facility] 12-08-2021 11:41-0400 Heart rate 89 /min Santos Josh [facility] 12-08-2021 11:41-0400 Mean blood pressure 99 mm[Hg] Santos Josh [facility] 12-08-2021 11:41-0400 Respiratory rate 18 /min Santos Josh [facility] 12-08-2021 11:41-0400 SaO2% (BldA) [Mass fraction] 99 % Santos Moreno [facility] 12-08-2021 11:41-0400 Systolic blood pressure 122 mm[Hg] Santos Moreno [facility] 12-08-2021 10:01-0400 Body temperature 97.7 [degF] Santos Moreno [facility] 12-08-2021 10:01-0400 Heart rate 101 /min Santos Moreno [facility] 12-08-2021 10:01-0400 Respiratory rate 18 /min Santos Moerno [facility] 11-06-2021 13:03-0400 Hourly Rounding [facility] 11-06-2021 13:03-0400 Promise to Return [facility] 11-06-2021 12:05-0400 Hourly Rounding [facility] 11-06-2021 12:05-0400 [facility] 11-06-2021 11:05-0400 Hourly Rounding [facility] 11-06-2021 11:05-0400 Promise [facility] Return [facility] 11-06-2021 11:00-0400 Diastolic blood pressure 72 mm[Hg] [facility] 11-06-2021 11:00-0400 Heart rate 72 /min [facility] 11-06-2021 11:00-0400 SaO2% (BldA) [Mass fraction] 98 % [facility] 11-06-2021 11:00-0400 Systolic blood pressure 142 mm[Hg] [facility] 11-06-2021 08:04-0400 Body temperature 98.06 [degF] [facility] 11-06-2021 08:04-0400 Diastolic blood pressure 97 mm[Hg] [facility] 11-06-2021 08:04-0400 Heart rate 94 /min [facility] 11-06-2021 08:04-0400 Mean blood pressure 122 mm[Hg] [facility] 11-06-2021 08:04-0400 SaO2% (BldA) [Mass fraction] 99 % [facility] 11-06-2021 08:04-0400 Systolic blood pressure 171 mm[Hg] [facility] 11-06-2021 08:00-0400 Blood Pressure Location [facility] 11-06-2021 08:00-0400 BP/Pulse Patient Position [facility] 11-05-2021 23:33-0400 FIO2 21 % [facility] 11-05-2021 23:33-0400 Heart rate 60 /min [facility] 11-05-2021 23:33-0400 Respiratory rate 12 /min [facility] 11-05-2021 23:33-0400 SaO2% (BldA) [Mass fraction] 97 % [facility] 11-05-2021 23:00-0400 Body temperature 97.88 [degF] [facility] 11-05-2021 23:00-0400 Diastolic blood pressure 66 mm[Hg] [facility] 11-05-2021 23:00-0400 Systolic blood pressure 94 mm[Hg] [facility] 11-05-2021 20:41-0400 Mean blood pressure 109 mm[Hg] [facility] 11-05-2021 20:23-0400 Respiratory rate 18 /min [facility] 11-05-2021 15:53-0400 Blood [facility] 11-05-2021 15:53-0400 BP/Pulse Patient Position [facility] 11-05-2021 15:53-0400 Mean blood pressure 105 mm[Hg] [facility]d [facility] 11-05-2021 14:57-0400 Heart rate 104 /min perfectod [facility] 11-05-2021 11:08-0400 Blood Pressure [facility] 11-05-2021 11:08-0400 BP/Pulse [facility] 11-05-2021 00:25-0400 Heart rate 65 /min [facility] 11-05-2021 00:25-0400 Mean blood pressure 59 mm[Hg] [facility] 11-04-2021 19:15-0400 Mean blood pressure 104 mm[Hg] Diamondd [facility] 11-04-2021 18:49-0400 Heart rate 112 /min [facility] 11-04-2021 17:44-0400 Mean blood pressure 91 mm[Hg] Diamondd [facility] 10-09-2021 17:57-0400 Diastolic blood pressure 87 mm[Hg] Santos Velez [facility] 10-09-2021 17:57-0400 Heart rate 102 /min Santos Velez [facility] 10-09-2021 17:57-0400 Mean blood pressure 105 mm[Hg] Santos Velez [facility] 10-09-2021 17:57-0400 Respiratory rate 16 /min Santos Velez [facility] 10-09-2021 17:57-0400 SaO2% (BldA) [Mass fraction] 97 % Santos Agustin [facility] 10-09-2021 17:57-0400 Systolic blood pressure 141 mm[Hg] Santos Agustin [facility] 10-09-2021 17:40-0400 Hourly Rounding Santos Agustin [facility] 10-09-2021 17:40-0400 Promise to Return Satnos Agustin [facility] 10-09-2021 17:38-0400 Diastolic blood pressure 88 mm[Hg] Santos Agustin [facility] 10-09-2021 17:38-0400 Heart rate 104 /min Santos Agustin [facility] 10-09-2021 17:38-0400 Mean blood pressure 105 mm[Hg] Santos Agustin [facility] 10-09-2021 17:38-0400 Respiratory rate 16 /min Santos Agustin [facility] 10-09-2021 17:38-0400 SaO2% (BldA) [Mass fraction] 96 % Santos Agustin [facility] 10-09-2021 17:38-0400 Systolic blood pressure 140 mm[Hg] Santos Agustin [facility] 10-09-2021 16:10-0400 Diastolic blood pressure 75 mm[Hg] Santos Agustin [facility] 10-09-2021 16:10-0400 Heart rate 107 /min Santos Agustin [facility] 10-09-2021 16:10-0400 Hourly Rounding Santos Agustin [facility] 10-09-2021 16:10-0400 Mean blood pressure 97 mm[Hg] Santos Velez [facility] 10-09-2021 16:10-0400 Promise to Return Santos Velez [facility] 10-09-2021 16:10-0400 Respiratory rate 16 /min Santos Velez [facility] 10-09-2021 16:10-0400 SaO2% (BldA) [Mass fraction] 96 % Santos Velez [facility] 10-09-2021 16:10-0400 Systolic blood pressure 141 mm[Hg] Santos Velez [facility] 10-09-2021 15:29-0400 Body temperature 98.6 [degF] Santos Velez [facility] 10-09-2021 15:29-0400 Heart rate 109 /min Santos Velez [facility] 09-30-2021 13:53-0400 Blood Pressure Location Breanna Herediaell [facility] 09-30-2021 13:53-0400 Body temperature 97.7 [degF] Breanna Gu [facility] 09-30-2021 13:53-0400 Diastolic blood pressure 70 mm[Hg] Breanna Gu [facility] 09-30-2021 13:53-0400 Heart rate 72 /min Breanna Gu [facility] 09-30-2021 13:53-0400 SaO2% (BldA) [Mass fraction] 98 % Breanna Gu [facility] 09-30-2021 13:53-0400 Systolic blood pressure 122 mm[Hg] Breanna Gu [facility] 09-02-2021 14:55-0400 Blood Pressure Location Kirk Abbott [facility] 09-02-2021 14:55-0400 Diastolic blood pressure 76 mm[Hg] Kirk Woodallofferson [facility] 09-02-2021 14:55-0400 Heart rate 67 /min Kirk Christofferson [facility] 09-02-2021 14:55-0400 Respiratory rate 18 /min Kirk Woodallofferson [facility] 09-02-2021 14:55-0400 SaO2% (BldA) [Mass fraction] 100 % Kirk Jose Coffisak [facility] 09-02-2021 14:55-0400 Systolic blood pressure 109 mm[Hg] Kirk Abbott [facility] 06-14-2021 19:00-0500 Body height 157.48 cm Herlinda June Other [employer] [facility] [employer] Other 06-14-2021 19:00-0500 Body mass index (BMI) [Ratio] 42.06 kg/m2 Herlinda June Other [employer] Other 06-14-2021 19:00-0500 Body temperature 96.1 [degF] Herlinda June Other [employer] Other 06-14-2021 19:00-0500 Body weight 104.33 kg Herlinda June Other [employer] Other 06-14-2021 19:00-0500 SaO2% (BldA) [Mass fraction] 97 % Herlinda June Other [employer] Other 06-05-2020 15:11-0500 Body Temperature 97.9 [degF] [facility] 06-05-2020 15:11-0500 BP Diastolic 77 mm[Hg] [facility] 06-05-2020 15:11-0500 BP Systolic 110 mm[Hg] [facility] 06-05-2020 15:11-0500 Pulse (Heart Rate) 79 /min [facility] 06-05-2020 15:11-0500 Pulse Oximetry 96 % [facility] 06-05-2020 15:11-0500 Respiratory Rate 15 /min [facility] 06-03-2020 14:24-0500 BMI (Body Mass Index) 48.29 kg/m2 [facility] 06-03-2020 14:24-0500 Body weight 119.75 kg [facility] 06-03-2020 14:24-0500 Height 157.5 cm [facility] 09-09-2018 13:59-0400 Body Temperature 97.3 [degF] Shameka Baum [facility] 09-09-2018 13:59-0400 BP Diastolic 83 mm[Hg] Shameka Baum [facility] 09-09-2018 13:59-0400 BP Systolic 113 mm[Hg] Shameka Baum [facility] 09-09-2018 13:59-0400 Pulse (Heart Rate) 98 /min [facility] 09-09-2018 13:59-0400 Pulse Oximetry 100 % Shameka Alemanmer [facility] 09-09-2018 13:59-0400 Respiratory Rate 16 /min Shameka Baum [facility] 09-09-2018 08:00-0400 Body weight 110.8 [facility] 09-07-2018 14:20-0400 Height 157.48 cm [facility] 09-06-2018 19:43-0400 BMI (Body Mass Index) 42.1 kg/m2 [facility] 06-26-2017 21:27-0500 BP Diastolic 105 mm[Hg] Michi San [facility] Work Phone: 06-26-2017 21:27-0500 BP Systolic 122 mm[Hg] Michi San [facility] Work Phone: 06-26-2017 21:27-0500 Pulse (Heart Rate) 91 /min Michi San [facility] Work Phone: 06-26-2017 21:27-0500 Pulse Oximetry 100 % Michi San [facility] Work Phone: 06-26-2017 21:27-0500 Respiratory Rate 17 /min Michi San [facility] Work Phone: 06-26-2017 18:34-0500 BMI (Body Mass Index) 36.58 kg/m2 Michi San [facility] Work Phone: 06-26-2017 18:34-0500 Body Temperature 98.4 [degF] Michi San [facility] Work Phone: 06-26-2017 18:34-0500 Height 157.5 cm Michi San [facility] Work Phone: 06-26-2017 18:34-0500 Weight 90.72 kg Michi San [facility] Work Phone: Encounters Encounter Date Encounter Type Care Provider Facility Start: 12-28-2024 End: 12-28-2024 ambulatory Ben Horn [facility] Work Phone: Start: 12-28-2024 End: 12-28-2024 Departed Referred Ben Long DO -LAB [facility] Start: 12-19-2024 End: 12-22-2024 Refill Jim Velez DO Work Phone: [facility] Comment on above: Chronic pain syndrom e; DDD (degenerative disc disease), lumbar; Lumbar radiculopathy Start: 12-06-2024 End: 12-06-2024 Telephone encounter Addie Chavira MA [facility] Pharmacy Medication Management Start: 12-02-2024 End: 12-05-2024 Evaluation and management of inpatient Vanessa Vargas MD Work Phone: [facility] - GEN 8 Acute Comment on above: HHS (hypothenar zeus er syndrome) (Primary Dx); Hyperosmolar hyperglycemic state (HHS) (CMS-HCC) Start: 12-02-2024 ambulatory RADHA Long [facility] Start: 11-21-2024 End: 11-21-2024 Refill Jim Velez DO Work Phone: [facility] [place] Comment on above: DDD (degenerative di sc disease), lumbar; Lumbar radiculopathy; Chronic pain syndrome Start: 11-04-2024 End: 11-04-2024 Patient encounter procedure Jessica Romeo PA-C Work Phone: [facility] Comment on above: No-show for appointm ent (Primary Dx) Start: 11-04-2024 ambulatory JESSICA ROMEO Facili ty:[facility] Start: 10-11-2024 End: 10-11-2024 Orders Only Jim Velez DO Work Phone: [facility] Start: 10-06-2024 End: 10-11-2024 Refill Jim Velez DO Work Phone: [facility] [place] Comment on above: Chronic pain syndrom e Start: 10-03-2024 Evaluation and management of inpatient YURY SHAH [facility] Start: 10-02-2024 Evaluation and management of inpatient ELISABETH RAMIREZ [facility] Start: 10-01-2024 Evaluation and management of inpatient JUAN C CRABTREE [facility] Start: 10-01-2024 Evaluation and management of inpatient JUAN C CRABTREE [facility] Start: 10-01-2024 End: 10-05-2024 Evaluation and management of inpatient CARISA STILES [facility] Start: 09-29-2024 End: 09-29-2024 Documentation procedure Jay Peralta MA [facility] [place] Comment on above: [employer] Start: 09-28-2024 ambulatory STEPHANY NORIEGA [facility] Start: 09-23-2024 End: 11-23-2024 Refill Jim Velez DO Work Phone: [facility] [place] Comment on above: Chronic pain syndrom e 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 (Primary Dx); Lumbar radiculopathy; Chronic pain syndrome Levetiracetam Level Start: 09-23-2024 End: 09-23-2024 Office outpatient visit 25 minutes Jim Velez DO Work Phone: [facility] [place] Comment on above: Myofascial pain synd sudarshan (Primary Dx); DDD (degenerative disc disease), lumbar; Lumbar radiculopathy; Chronic pain syndrome Start: 09-23-2024 End: 09-23-2024 ambulatory [facility] Start: 09-22-2024 End: 09-22-2024 Emergency department patient visit SHAMEKA SPARKS [facility] Start: 09-22-2024 End: 10-07-2024 Documentation procedure Karon Beard PA-C Work Phone: [facility] Primary Care Physicians Comment on above: Chronic pain syndrom e Start: 09-22-2024 ambulatory STEPHANY NORIEGA [facility] Start: 09-18-2024 End: 09-18-2024 Emergency department patient visit SHAMEKA BRIDGER PALOMO [facility] Start: 08-29-2024 End: 08-29-2024 Emergency department patient visit No [facility] Start: 08-24-2024 End: 08-24-2024 Documentation procedure Mihai Elizalde CNP Work Phone: [facility] [place] Start: 08-18-2024 End: 08-19-2024 Orders Only Mery Robles MD Work Phone: [facility] Orthopedics Comment on above: Pain in both knees, unspecified chronicity (Primary Dx) DDD (degenerative di sc disease), lumbar; Lumbar radiculopathy; Chronic pain syndrome Start: 08-08-2024 End: 08-09-2024 Orders Only Agapito Schuler PA-C Work Phone: [facility] Spine Surgery Comment on above: Lumbar pain (Primary Dx) Start: 08-04-2024 End: 08-04-2024 Documentation procedure Rafaela Castillo MA [facility]icians Comment on above: Pulse ox Start: 08-02-2024 End: 08-02-2024 [facility] Start: 08-02-2024 End: 08-02-2024 Office outpatient visit 25 minutes Stephany Pelayo PA-C Work Phone: [facility] Comment on [...] Hypothyroidism, unspecified type; History of stroke; Seizures ([facility]); Hypercholesterolemia; Urinary incontinence, unspecified type; Gastroesophageal reflux disease, unspecified whether esophagitis present; Family history of pulmonary fibrosis; Candidiasis of breast; Insomnia, unspecified type; Vitamin B12 deficiency; Vitamin D deficiency; Encounter for screening mammogram for malignant neoplasm of breast; Encounter for health-related screening Start: 08-02-2024 End: 08-02-2024 ambulatory STEPHANY LEANN [facility] Start: 07-21-2024 End: 07-21-2024 Documentation procedure Rafaela Castillo MA [facility] Comment on above: shower chair Start: 07-15-2024 End: 07-15-2024 Office outpatient visit 25 minutes Stephany Pelayo PA-C Work Phone: [facility] Comment on above: Seizures (HCC) (Prim margoth Dx); Chronic nonintractable headache, unspecified headache type; Primary hypertension; Sick sinus syndrome (HCC); Type 2 diabetes mellitus with diabetic polyneuropathy, with long-term current use of insulin (HCC); Gastroesophageal reflux disease, unspecified whether esophagitis present Start: 07-15-2024 End: 07-15-2024 ambulatory STEPHANY PELAYO [facility] Start: 07-12-2024 End: 07-25-2024 Refill Mihai Shaun Lavonne [employer] Work Phone: [facility] [place] Comment on [...] 06-10-2024 End: 06-23-2024 Refill Mihai Shaun Lavonne [employer] Work Phone: [facility] [place] Comment on above: Chronic pain syndrom e; DDD (degenerative disc disease), lumbar; Lumbar radiculopathy Start: 06-06-2024 End: 06-07-2024 Documentation procedure Rafaela Castillo MA [facility] Comment on above: incontinence supplie s Start: 05-31-2024 End: 05-31-2024 Documentation procedure Karon Meng LPN [facility] Start: 05-27-2024 End: 05-27-2024 Refill Stephany Pelayo PA-C Work Phone: [facility] Comment on above: Bipolar 1 disorder ( HCC); Insomnia, unspecified type Start: 05-23-2024 End: 05-23-2024 Emergency department patient visit SHAMEKA BRIDGER PALOMO [facility] Start: 05-13-2024 End: 05-13-2024 Office outpatient visit 25 minutes Mihai Elizalde CNP Work Phone: [facility] [place] Comment on above: Lumbar radiculopathy (Primary Dx); Chronic pain syndrome; DDD (degenerative disc disease), lumbar; Encounter for monitoring opioid maintenance therapy; Other chronic pain; Myofascial pain syndrome Start: 05-13-2024 End: 05-13-2024 ambulatory STEPHANY PELAYO [facility] Start: 04-28-2024 End: 04-29-2024 Refill Mihai Elizalde CNP Work Phone: [facility] [place] Comment on above: Chronic pain syndrom e Start: 04-26-2024 End: 04-29-2024 ambulatory [facility] Start: 04-26-2024 End: 04-29-2024 Evaluation and management of inpatient Jacoby Dooley MD Work Phone: [facility] Start: 04-12-2024 End: 04-13-2024 Refill Jim Velez DO Work Phone: [facility] [place] Comment on above: DDD (degenerative di sc disease), lumbar; Lumbar radiculopathy Chronic pain syndrom e Start: 03-30-2024 End: 03-30-2024 Documentation procedure Maite Adams LPN [facility] Endocrinology Comment on above: [facility] Start: 03-25-2024 End: 03-25-2024 Orders Only Stephany Pelayo PA-C Work Phone: [facility] Start: 03-24-2024 End: 04-04-2024 Evaluation and management of inpatient Ko Aaron MD Work Phone: [facility] Surgical [address] [place] Start: 03-24-2024 End: 03-24-2024 Orders Only Stephany Pelayo PA-C Work Phone: [facility] Start: 03-22-2024 End: 03-22-2024 Office outpatient visit 25 minutes Stephany Pelayo PA-C Work Phone: [facility] Comment on above: Primary hypertension (Primary Dx); Diarrhea, unspecified type; Abdominal cramping; Abdominal wound dehiscence, initial encounter; Bipolar 1 disorder (HCC); Seizures ([facility]); Chronic pain of both knees; Urinary incontinence, unspecified type; Candidiasis; Abnormal pigmentation of skin Start: 03-22-2024 End: 03-25-2024 Refill Jim Velez DO Work Phone: [facility] [place] Comment on above: Chronic pain syndrom e Start: 03-08-2024 End: 03-10-2024 Refill Mihai Elizalde CNP Work Phone: [facility] [place] Comment on above: DDD (degenerative di sc disease), lumbar; Lumbar radiculopathy Start: 02-11-2024 End: 02-15-2024 ambulatory [facility] Start: 02-11-2024 End: 02-11-2024 Office outpatient visit 25 minutes Stephany Pelayo PA-C Work Phone: [facility] Comment on [...] Urinary incontinence, unspecified type; Bipolar 1 disorder ([facility] [facility]); Insomnia, unspecified type; Gastroesophageal reflux disease, unspecified whether esophagitis present; Family history of pulmonary fibrosis; Vitamin B12 deficiency; Vitamin D deficiency; Cigarette nicotine dependence without complication; Need for vaccination Start: 02-11-2024 End: 02-11-2024 ambulatory STEPHANY PELAYO [facility] Start: 02-08-2024 End: 02-08-2024 Refill Laura Child MA [facility] Psych Comment on above: Bipolar 1 disorder ( [facility]); Insomnia, unspecified type Start: 02-04-2024 End: 02-04-2024 Orders Only Jim Velez DO Work Phone: [facility] Pain Management Velia Comment on above: DDD (degenerative di sc disease), lumbar; Lumbar radiculopathy Start: 02-03-2024 End: 02-03-2024 Refill Jim Velez DO Work Phone: [facility] Pain Management Velia Comment on above: DDD (degenerative di sc disease), lumbar; Lumbar radiculopathy Start: 02-02-2024 End: 02-02-2024 Office outpatient visit 25 minutes Jim Velez DO Work Phone: [facility] Pain Management Velia Comment on above: Chronic pain syndrom e (Primary Dx); DDD (degenerative disc disease), lumbar; Lumbar radiculopathy; Other chronic pain; Myofascial pain syndrome; Debilitated patient Start: 02-02-2024 End: 02-02-2024 ambulatory STEPHANY PELAYO [facility] Start: 01-27-2024 End: 01-27-2024 Transitional care manage srvc 14 day discharge Rafaela Medrano SENIOR COGNOS DEVELOPER Work Phone: [facility] Primary Care Physicians Comment on above: Diabetic ulcer of ri ght foot associated with type 2 diabetes mellitus, unspecified part of foot, unspecified ulcer stage (HCC) (Primary Dx); Primary hypertension; SOLO (acute kidney injury) (HCC); Hypothyroidism, unspecified type; Hyperlipidemia, unspecified hyperlipidemia type Start: 01-27-2024 End: 01-28-2024 ambulatory Swapnil Hooks [facility] Primary Care Comment on above: Chronic pain syndrom e Start: 01-12-2024 End: 01-18-2024 Evaluation and management of inpatient Jacoby Dooley MD Work Phone: [facility] [address] Start: 01-12-2024 End: 01-12-2024 Office outpatient visit 25 minutes Stephany Pelayo PA-C Work Phone: [facility] Primary Care Physicians Comment on above: Diabetic ulcer of le ft great toe (HCC) (Primary Dx) Start: 01-12-2024 End: 01-12-2024 ambulatory STEPHANY PELAYO [facility] Start: 01-11-2024 End: 01-13-2024 Refill Jim Velez DO Work Phone: [facility] Pain Management Velia Comment on above: DDD (degenerative di sc disease), lumbar; Lumbar radiculopathy; Muscle spasms of both lower extremities Start: 01-09-2024 End: 01-10-2024 Emergency department patient visit STEPHANY PELAYO [facility] Start: 12-21-2023 End: 12-22-2023 Refill Mihai Elizalde CNP Work Phone: [facility] Pain Management [place]ia Comment on above: Chronic pain syndrom e Start: 12-18-2023 ambulatory JIM VELEZ [facility] Start: 12-15-2023 ambulatory JIM VELEZ [facility] Start: 12-14-2023 End: 12-14-2023 Documentation procedure Rafaela Castillo MA [facility] Primary Care Comment on above: nebulizer supplies Start: 12-08-2023 End: 12-08-2023 Office outpatient new 45 minutes Stephany Pelayo PA-C Work Phone: [facility] Pain Management Velia Comment on above: Chronic pain syndrom e (Primary Dx); Muscle spasms of both lower extremities; DDD (degenerative disc disease), lumbar; Lumbar radiculopathy; Other chronic pain; Myofascial pain syndrome; Debilitated patient Start: 12-08-2023 End: 12-10-2023 Refill Moo Pressley MA [facility] Endocrinology Start: 12-07-2023 End: 12-07-2023 Emergency department patient visit STEPHANY ANN [facility] Start: 12-07-2023 End: 12-08-2023 Refill Moo Pressley MA [facility] Endocrinology Comment on above: Type 2 diabetes chelly itus with diabetic polyneuropathy, with long-term current use of insulin (HCC) Start: 12-03-2023 End: 12-03-2023 Refill Sahara Sanchez MD Work Phone: [facility] Endocrinology Comment on above: Type 2 diabetes chelly itus with diabetic polyneuropathy, with long-term current use of insulin (HCC) Start: 12-02-2023 End: 12-02-2023 Office outpatient new 60 minutes Stephany Pelayo PA-C Work Phone: [facility] Endocrinology Comment on above: Type 2 diabetes chelly itus with diabetic polyneuropathy, with long-term current use of insulin (HCC) (Primary Dx); Proliferative diabetic retinopathy associated with type 2 diabetes mellitus, unspecified laterality, unspecified proliferative retinopathy type (HCC); Dyslipidemia; Essential hypertension; Obesity, unspecified classification, unspecified obesity type, unspecified whether serious comorbidity present Start: 12-02-2023 End: 12-03-2023 Refill Maite Adams LPN [facility] Endocrinology Comment on above: Type 2 diabetes chelly itus with diabetic polyneuropathy, with long-term current use of insulin (HCC) (Primary Dx) Start: 12-01-2023 End: 12-01-2023 Office outpatient visit 25 minutes Stephany Pelayo PA-C Work Phone: [facility] Primary Care Comment on above: Primary hypertension (Primary Dx); Upper respiratory tract infection, unspecified type; Chronic obstructive pulmonary disease, unspecified COPD type (HCC); Family history of pulmonary fibrosis; Retinal hemorrhage of left eye Start: 12-01-2023 End: 12-01-2023 ambulatory STEPHANY PELAYO [facility] Start: 11-17-2023 ambulatory STEPHANY PELAYO [facility] Start: 11-12-2023 Refill Stephany ro PA-C Work Phone: [facility] Primary Care Comment on above: Muscle spasms of bot h lower extremities; Type 2 diabetes mellitus with diabetic polyneuropathy, with long-term current use of insulin (HCC) Start: 11-09-2023 End: 11-09-2023 Office outpatient new 45 minutes Anders London MD Work Phone: [facility] [place] Comment on above: Vision loss of left eye (Primary Dx); Ocular hypertension of left eye; Proliferative diabetic retinopathy of left eye associated with type 2 diabetes mellitus, unspecified proliferative retinopathy type; Nonproliferative diabetic retinopathy of right eye; Pseudophakia; Dry eye syndrome of bilateral lacrimal glands Start: 10-30-2023 Refill Rosario willoughby MD Work Phone: [facility] Start: 10-29-2023 End: 01-12-2024 Orders Only Shaye Gloria MA [facility] Primary Care Start: 10-28-2023 Orders Only Stephany ro PA-C Work Phone: [facility] Primary Care Comment on above: Subacute cough (Prim margoth Dx); Family history of pulmonary fibrosis Start: 10-23-2023 Orders Only Shameka salas DPM Work Phone: [facility] Start: 10-13-2023 End: 10-13-2023 Office outpatient visit 25 minutes Stephany Pelayo PA-C Work Phone: [facility] Primary Care Comment on above: Primary hypertension (Primary Dx); Subacute cough; RUQ abdominal pain; Type 2 diabetes mellitus with diabetic polyneuropathy, with long-term current use of insulin (HCC); Family history of pulmonary fibrosis Start: 10-07-2023 End: 10-07-2023 Office outpatient visit 25 minutes Rosario Sanchez MD Work Phone: [facility] Psych Comment on above: Bipolar 1 disorder ( HCC) (Primary Dx); Post traumatic stress disorder (PTSD); Generalized anxiety disorder; Insomnia, unspecified type Start: 10-07-2023 Documentation procedure Magnolia Chavira LPN [facility] Start: 10-06-2023 Refill Stephany ro PA-C Work Phone: [facility] Primary Care Comment on above: Muscle spasms of bot h lower extremities Start: 09-22-2023 Orders Only Shameka salas DPM Work Phone: [facility] Comment on above: Right foot ulcer, wi th fat layer exposed (HCC) (Primary Dx) Start: 09-16-2023 End: 09-16-2023 Office outpatient visit 40 minutes Virgen Campos MD Work Phone: [facility] Neurology Comment on above: Hearing loss of left ear, unspecified hearing loss type (Primary Dx); Lacunar stroke (HCC); Seizure (HCC) Start: 09-15-2023 Refill Laura Child [facility] Start: 09-10-2023 Documentation procedure Rafaela rockwell MA [facility] Primary Care Comment on above: DME Start: 09-07-2023 Refill Maye Ramirez LPN [facility] Primary Care Comment on above: Muscle spasms of bot h lower extremities Start: 09-03-2023 End: 09-03-2023 Periodic preventive med est patient 40-64yrs Stephany Pelayo PA-C Work Phone: [facility] Primary Care Comment on above: [...] patient visit Floyd Mercado MD Work Phone: [facility] Start: 08-11-2023 Refill Rafaela Colmenares SENIOR [employer] DEVELOPER Work Phone: [facility] Primary Care Comment on above: Muscle spasms of bot h lower extremities Start: 08-10-2023 Refill Rafaela Colmenares SENIOR [employer] DEVELOPER Work Phone: [facility] Primary Care Comment on above: Type 2 diabetes chelly itus with diabetic polyneuropathy, with long-term current use of insulin (HCC) (Primary Dx); Muscle spasms of both lower extremities Start: 08-03-2023 End: 08-03-2023 Office outpatient new 60 minutes Stephany Pelayo PA-C Work Phone: [facility] Comment on above: Post traumatic stres s disorder (PTSD) (Primary Dx); Bipolar 1 disorder (HCC); Insomnia, unspecified type; Generalized anxiety disorder Start: 06-22-2023 End: 06-22-2023 Office outpatient visit 25 minutes Harris Bhat MD Work Phone: [facility] Primary Care Comment on above: Bipolar 1 disorder ( HCC) (Primary Dx); Type 2 diabetes mellitus with diabetic polyneuropathy, with long-term current use of insulin (HCC); Seizures (HCC); Incontinence in female Start: 06-22-2023 Refill Maye Ramirez LPN [facility] Primary Care Comment on above: Bipolar 1 disorder ( HCC) (Primary Dx) Start: 05-27-2023 ambulatory [facility] Comment on above: High Risk Outreach f or High Risk Start: 05-15-2023 End: 05-15-2023 Home visit Jackelyn Wasserman RN [facility] Comment on above: SN HH NON ADMIT VISI T Start: 05-15-2023 End: 05-15-2023 Office outpatient visit 25 minutes Stephany Pelayo PA-C Work Phone: [facility] Primary Care Comment on above: Left-sided weakness (Primary Dx); Visual loss, left eye; Acute effusion of left ear; Diabetic ulcer of right foot associated with type 2 diabetes mellitus, unspecified part of foot, unspecified ulcer stage ([facility]); Gastroesophageal reflux disease, unspecified whether esophagitis present; Weight gain Start: 05-15-2023 ambulatory Faustina Severino RN [facility] Primary Care Comment on above: High Risk Outreach f or High Risk Start: 05-15-2023 Documentation procedure Rafaela rockwell [facility] Primary Care Comment on above: hosp bed Start: 05-14-[address] [facility] Start: 05-11-2023 ambulatory STEPHANY PELAYO [facility] Start: 05-06-2023 End: 05-06-2023 Office outpatient new 45 minutes Stephany Pelayo PA-C Work Phone: [facility] Primary Care Comment on above: [...] End: 04-29-2023 Home visit Cece Colin OT [facility] Comment on above: OT NON-OASIS/DISCIPL INE DISCHARGE Start: 04-29-2023 End: 04-29-2023 Home visit Karen Prather PT [facility] Comment on above: PT NON-OASIS/DISCIPL INE DISCHARGE Start: 04-27-2023 Home visit Nikko Pratt INTEGRATION ANALYST [facility] Comment on above: INTEGRATION ANALYST MISSED VISIT Start: 04-24-2023 End: 04-24-2023 Home visit Radha Jameson [facility] Comment on above: RETANA MISSED VISIT INTEGRATION ANALYST MISSED VISIT Start: 04-23-2023 End: 04-23-2023 Home visit Radha Jameson [facility] Comment on above: RETANA MISSED VISIT Start: 04-22-2023 End: 04-22-2023 Home visit Ama Wilcox RN [facility] Comment on above: SN HH OASIS DISCHARG E Start: 04-21-2023 End: 04-21-2023 Home visit Nikko Pratt [facility] Comment on above: INTEGRATION ANALYST MISSED VISIT CASE COMMUNICATION CARE CONFERENCE Start: 04-20-2023 End: 04-20-2023 Home visit Ama Wilcox RN [facility] Comment on above: SN MISSED VISIT Start: 04-17-2023 Home visit Sharla Paulino [facility] Comment on above: PUBLIC RELATIONS ACCOUNT SUPERVISOR MISSED VISIT Start: 04-15-2023 End: 04-15-2023 Home visit Tiny Arias [facility] Comment on above: CASE COMMUNICATION SN HH ROUTINE VISIT RETANA ROUTINE VISIT Start: 04-14-2023 End: 04-14-2023 Home visit Carolina Boston [facility] Comment on above: PUBLIC RELATIONS ACCOUNT SUPERVISOR HH ROUTINE Start: 04-14-2023 End: 04-14-2023 Home visit Nikko Pratt [facility] Comment on above: INTEGRATION ANALYST ROUTINE VISIT OT INITIAL EVALUATIO N Start: 04-10-2023 Home visit Cece Colin OT [facility] Comment on above: CASE COMMUNICATION Start: 04-09-2023 End: 04-09-2023 Home visit Carolina Boston [facility] Comment on above: PUBLIC RELATIONS ACCOUNT SUPERVISOR HH ROUTINE Start: 04-08-2023 End: 04-08-2023 Home visit Carlitos Carrera TRACE EVIDENCE TECHNICIAN [facility] Comment on above: TRACE EVIDENCE TECHNICIAN HH ROUTINE Start: 04-08-2023 End: 04-08-2023 Home visit Lisa Padron PT [facility] Comment on above: PT INITIAL EVALUATIO N Start: 04-07-2023 Home visit Lisa Padron PT [facility] Comment on above: CASE COMMUNICATION PUBLIC RELATIONS ACCOUNT SUPERVISOR MISSED VISIT Start: 04-01-2023 End: 04-01-2023 Home visit Kassidy Wick RN [facility] Comment on above: SN HH OASIS START OF CARE Start: 03-31-2023 ambulatory [facility] Start: 03-30-2023 End: 04-22-2023 ambulatory [facility] Start: 03-29-2023 End: 03-30-2023 Emergency department patient visit Ko Aaron MD Work Phone: [facility] Start: 02-17-2023 End: 02-20-2023 Evaluation and management of inpatient Hayde Agrawalkodak Pickering DO Work Phone: [facility] Surgical [facility] [place] Start: 02-09-2023 End: 02-09-2023 Office outpatient new 20 minutes Josué Christianson DO Work Phone: [facility] Orthoped[facility] Comment on above: Strain of right hams tring, initial encounter (Primary Dx); Strain of right knee, initial encounter; Other specified diabetes mellitus with other specified complication, unspecified whether press tender long goods insulin use (HCC) Start: 02-04-2023 Orders Only Josué Christianson DO Work Phone: [facility] Comment on above: Right knee pain, uns pecified chronicity (Primary Dx) Start: 12-12-2022 ambulatory No Doctor Facility:[facility] Start: 10-29-2022 End: 11-02-2022 Evaluation and management of inpatient Jacob PierceMaris Nelson [facility] Start: 10-21-2022 Evaluation and management of inpatient RAFAELA Pollock Facility: Start: 10-11-2022 End: 10-11-[address] DOCTOR ARREGUIN Facility:[facility]1 Start: 10-07-2022 Emergency department patient visit UNKNOWN PROVIDER Facility:[facility] Start: 10-06-2022 End: 10-07-2022 Emergency department patient visit UNKNOWN PROVIDER Facility:[facility] Start: 10-06-2022 End: 10-07-2022 Emergency department patient visit Jocelyn Bowen MD Work Phone: [facility] Comment on above: Chart (Transfer from [facility] for MRI) Start: 10-06-2022 End: 10-06-2022 Emergency department patient visit Preston Lugo [facility] Start: 09-18-2022 End: 09-18-2022 ambulatory YESENIA ZAMUDIO . Facility:[facility] Start: 09-12-2022 End: 09-15-2022 Evaluation and management of inpatient Pepe Echols [facility] Start: 09-12-2022 End: 09-12-2022 Admission to same day surgery center GREEN CHAIN OFFBEARER-C Laurent Franco Work Phone: [facility] [place] Start: 09-12-2022 End: 09-12-2022 ambulatory GREEN CHAIN OFFBEARER-C Laurent Franco Work Phone: [facility] Work Phone: Start: 09-09-2022 End: 09-09-2022 ambulatory SANTOS VELEZ . Facility:[facility] Start: 09-07-2022 End: 09-07-[address] DOCTOR ARREGUIN Facility:[facility] Start: 09-02-2022 End: 09-02-2022 ambulatory Shameka Romero Other [employer] Other Start: 09-02-2022 Telephone encounter Shameka Duong [facility] Start: 08-29-2022 End: 08-29-2022 Patient encounter procedure LAURENT FRANCO [facility] Start: 08-20-2022 End: 08-22-2022 Evaluation and management of inpatient GREEN CHAIN OFFBEARER-C Kip Sorandyak Work Phone: [facility] Work Phone: Start: 08-20-2022 End: 08-22-2022 Evaluation and management of inpatient GREEN CHAIN OFFBEARER-C Kip Soviak Work Phone: [facility] Work Phone: Start: 08-20-2022 observation encounter GREEN CHAIN OFFBEARER-C Kip W Sorandyak Work Phone: [facility] Work Phone: Start: 08-19-2022 End: 08-19-2022 Emergency department patient visit Santos Velez [facility] Start: 08-14-2022 ambulatory JULIA CHAPA [...] 06-02-2022 Emergency department patient visit Bridgett Gillespie [facility] Start: 05-15-2022 End: 05-15-2022 Emergency department patient visit Santos Velez [facility] Start: 04-20-2022 End: 04-21-2022 ambulatory RADHA DIAS Facility:[facility] Start: 04-06-2022 End: 04-09-2022 Evaluation and management of inpatient Ashutosh MENARD [facility] Start: 03-31-2022 End: 03-31-2022 ambulatory YESENIA ZAMUDIO . Facility:[facility] Start: 03-04-2022 End: 03-06-[address] DOCTOR ARREGUIN Facility:[facility] Start: 02-27-2022 End: 02-27-2022 Emergency department patient visit Gui Schafer [facility] Start: 02-21-2022 End: 02-21-2022 Emergency department patient visit Santos Velez [facility] Start: 02-17-2022 End: 02-18-[address] MICHI MENDEZ . Facility:[facility] Start: 02-06-2022 End: 02-06-[address] POLO MILTON Facility:[facility] Start: 01-24-2022 End: 01-24-2022 Emergency department patient visit Preston Jonese [facility] Start: 01-09-2022 End: 01-09-2022 Observation Juan GONZALEZ [facility] Start: 01-01-2022 End: 01-02-2022 ambulatory CARISA STILES Facility:[facility] Start: 01-01-2022 End: 01-01-2022 Patient encounter procedure Breanna Gu [facility] Start: 12-12-2021 End: 12-12-2021 Patient encounter procedure Breanna Gu [facility] Start: 12-08-2021 End: 12-08-2021 Emergency department patient visit CEM MARIO [facility] Start: 12-08-2021 End: 12-08-2021 Emergency department patient visit Antoine Sosa MD Work Phone: [facility] Comment on above: Other insomnia (Prim margoth Dx) Start: 12-08-2021 End: 12-08-2021 Emergency department patient visit Santos Moreno [facility] Start: 12-04-2021 End: 12-04-[address] DOCTOR ARREGUIN Facility:[facility] Start: 12-02-2021 End: 12-02-2021 Patient encounter procedure Breanna Gu [facility] Start: 11-28-2021 End: 11-28-[address] DOCTOR ARREGUIN Facility:[facility]1 Start: 11-27-2021 End: 11-27-2021 Patient encounter procedure Breanna Gu [facility] Start: 11-04-2021 End: 11-06-2021 Evaluation and management of inpatient Diamondd Evelyn [facility] Start: 10-30-2021 End: 10-30-2021 Lab Drop off Breanna Gu [facility] Start: 10-10-2021 End: 02-01-2022 Pre-admission assessment Nancy GUTIERREZ [facility] Start: 10-09-2021 End: 10-09-2021 Emergency department patient visit Santos Velez [facility] Start: 10-03-2021 End: 10-03-2021 Patient encounter procedure Breanna Gu [facility] Start: 09-30-2021 End: 09-30-2021 Patient encounter procedure Breanna Gu [facility] Start: 09-30-2021 End: 09-30-2021 Preprocedural examination done Breanna Gu [facility] Start: 09-27-2021 End: 09-27-2021 Patient encounter procedure Soto Bhandariha [facility] Start: 09-02-2021 End: 11-21-2021 Pre-admission assessment Nancy GUTIERREZ [facility] Start: 09-02-2021 End: 09-02-2021 Patient encounter procedure Kirk Abbott [facility] Start: 08-29-2021 End: 08-29-2021 Patient encounter procedure Breanna Gu [facility] Start: 06-14-2021 End: 06-14-2021 ambulatory Herlinda June Other [employer] Other Start: 06-14-2021 Office outpatient vi sit 15 minutes Herlinda June [facility] Start: 08-02-2020 End: 08-02-2020 Orders Only Daniel Baxter Work Phone: [facility] Start: 06-03-2020 End: 06-05-2020 Evaluation and management of inpatient BREANNA NORIEGA [facility] Start: 06-03-2020 Critical care ill/injured patient init 30-74 min Ko Hankins Work Phone: [facility] Start: 06-03-2020 End: 06-05-2020 Evaluation and management of inpatient Ko Hankins Work Phone: [address] Comment on above: Type 2 diabetes chelly itus with left diabetic foot infection (HCC) (Primary Dx); Diabetic infection of left foot (HCC); Abscess of chin Start: 08-10-2019 End: 08-11-2019 Emergency department patient visit AMBROCIO Thuy CHAVEZ Facility:[facility] Start: 11-29-2018 End: 11-29-2018 Patient encounter procedure Shameka Baum [facility] Start: 09-07-2018 End: 09-09-2018 Evaluation and management of inpatient Shameka Baum [facility] Start: 07-29-2018 Registered Recurring Shameka [facility] Start: 07-23-2018 End: 08-31-2018 Discharged Recurring Shameka [facility] Start: 06-25-2018 End: 06-25-2018 Patient encounter procedure NONE MJ Facility: Start: 05-04-2018 End: 05-04-2018 Patient encounter procedure Shameka Baum [facility] Start: 09-01-2017 End: 09-02-2017 Emergency department patient visit CEM AMRIO [facility] Start: 07-17-2017 End: 07-23-2017 Ambulatory BEN DE JESUS [facility] Start: 06-26-2017 End: 06-26-2017 Emergency department patient visit Michi San Work Phone: [facility] Start: 06-23-2017 End: 06-23-2017 Patient encounter procedure Shameka Baum [facility] Start: 02-16-2017 End: 02-16-2017 Emergency department patient visit KEYLA PRATT [facility] Start: 02-09-2017 End: 02-09-2017 Departed Referred Shameka Baum [facility] Start: 01-16-2016 End: 01-16-2016 Admission to day surgery Shameka Baum [facility] Start: 10-02-2012 End: 10-02-2012 Emergency department patient visit Shameka Baum [facility] Start: 04-23-2012 End: 04-23-2012 Departed Referred Shameka Baum [facility] Start: 12-23-2009 End: 12-23-2009 Departed Referred Shameka Baum [facility] Start: 12-21-2002 End: 12-21-2002 Emergency department patient visit Shameka Baum [facility] Start: 08-25-2002 End: 08-25-2002 Emergency department patient visit Shameka Baum [facility] Start: 06-27-2002 End: 06-27-2002 [facility] Start: 05-08-2002 End: 05-08-2002 Emergency department patient visit Shameka Baum [facility] Start: 10-25-2001 End: 10-25-2001 Patient encounter procedure Shameka Baum [facility] Start: 10-27-1999 End: 10-27-1999 Emergency department patient visit Shameka Baum [facility] Start: 09-10-1999 End: 09-10-1999 Emergency department patient visit Shameka Baum [facility] Procedures Date Procedure Procedure Detail [...] MD Work Phone: Start: 12-04-2024 BEDSIDE GLUCOSE Elad Aguirre MD Work Phone: Start: 12-04-2024 Basic [...] Work Phone: Start: 04-02-2024 Glucose measurement Generic [facility] Work Phone: Start: 04-02-2024 Renal function panel Julia Hendrix DO Work Phone: Start: 04-01-2024 Glucose measurement [facility] Work Phone: Start: 04-01-2024 Radex foot [...] Work Phone: Start: 03-29-2024 Renal function panel Jluia Hendrix DO Work Phone: Start: 03-28-2024 Glucose [...] 03-27-2024 Comprehensive metabolic panel Jennifer Ortega John SENIOR COGNOS DEVELOPER Work Phone: Start: 03-27-2024 Glucose measurement [facility] Work Phone: Start: 03-26-2024 Basic metabolic panel calcium total John Chaparro MD Work Phone: Start: 03-26-2024 Glucose measurement [facility] Work Phone: Start: 03-26-2024 Glucose measurement [facility] Work Phone: Start: 03-26-2024 Glucose measurement [facility] Work Phone: Start: 03-26-2024 End: 03-26-2024 Glucose measurement Generic [facility] Work Phone: Start: 03-26-2024 Creatinine blood Lisa Hammond [facility],PharmD Start: 03-26-2024 LAVENDER TOP Jennifer Lopez SENIOR COGNOS DEVELOPER Work Phone: Start: 03-26-2024 RAINBOW DRAW Jennifer Lopez SENIOR COGNOS DEVELOPER Work Phone: Start: 03-25-2024 Glucose measurement Generic [facility] Work Phone: Start: 03-25-2024 Glucose measurement Generic [facility] Work Phone: Start: 03-25-2024 Assay of lactate Ani Gonzales SENIOR COGNOS DEVELOPER Work Phone: Start: 03-25-2024 Cul bact xcpt urine blood/stool aerobic isol Avila Rajan PA-C Work Phone: Start: 03-25-2024 Glucose measurement [facility] Work Phone: Start: 03-25-2024 Assay of lactate Ani Gonzales SENIOR COGNOS DEVELOPER Work Phone: Start: 03-25-2024 Electrocardiogram Generic [facility] Work Phone: Start: 03-25-2024 End: 03-25-2024 Basic metabolic panel calcium total Imran Malcolm Smith MD Work Phone: Start: 03-25-2024 End: 03-25-2024 Glucose measurement [facility] Work Phone: Start: 03-25-2024 End: 03-25-2024 Glucose measurement Ko Aaron MD Work Phone: Start: 03-25-2024 Culture bacterial quanttative colony count urine Ani Gonzales SENIOR COGNOS DEVELOPER Work Phone: Start: 03-25-2024 Ecg routine ecg w/least 12 lds trcg only w/o i&r Ani Gonzales SENIOR COGNOS DEVELOPER Work Phone: Start: 03-24-2024 Comprehensive metabolic panel Ani Gonzales SENIOR COGNOS DEVELOPER Work Phone: Start: 03-24-2024 Gases blood ph direct jordin xcpt pulse oximitry Ani Gonzales SENIOR COGNOS DEVELOPER Work Phone: Start: 03-24-2024 GOLD TOP Ko Aaron MD Work Phone: Start: 03-24-2024 Hepatic function panel Ani Correia Christian SENIOR COGNOS DEVELOPER Work Phone: Start: 03-24-2024 LIGHT BLUE TOP Ko Aaron MD Work Phone: Start: 03-24-2024 OBTAIN VENOUS BLOOD GASES AND PERFORM Ani Correia Christian SENIOR COGNOS DEVELOPER Work Phone: Start: 03-24-2024 RAINBOW DRAW Ko [...] stick/tablet reagent auto microscopy Mary Lou Castillo SENIOR COGNOS DEVELOPER Work Phone: Start: 01-16-2024 Glucose measurement [facility] Work Phone: Start: 01-16-2024 Us retroperitoneal real time w/image complete Mary Lou Castillo SENIOR COGNOS DEVELOPER Work Phone: Start: 01-16-2024 Glucose measurement Generic [...] Start: 01-13-2024 End: 01-13-2024 Glucose measurement [facility] Work Phone: Start: 01-13-2024 Ct lower extremity w/o contrast material Shameka Aguirre Jonathan DPM Work Phone: Start: 01-13-2024 Glucose measurement Generic [facility] Work Phone: Start: 01-13-2024 Glucose measurement Generic [facility] Work Phone: Start: 01-13-2024 Blood count complete automated Enrique Bailey PA-C Work Phone: Start: 01-13-2024 Renal function panel Enrique Lainez PA-C Work Phone: Start: 01-12-2024 Ecg routine ecg w/least 12 lds trcg only w/o i&r Mk Leigh MD Work Phone: Start: 01-12-2024 Glucose measurement [facility] Work Phone: Start: 01-12-2024 Radex foot [...] Work Phone: Start: 03-30-2023 Glucose measurement [facility] Work Phone: Start: 03-30-2023 Renal function panel Enrique Lainez PA-C Work Phone: Start: 03-29-2023 Glucose measurement Generic [facility] Work Phone: Start: 03-29-2023 Assay of troponin quantitative Ko Aaron MD Work Phone: Start: 03-29-2023 Electrocardiogram Ko Aaron MD Work Phone: Start: 03-29-2023 Glucose measurement Generic [facility] Work Phone: Start: 03-29-2023 Comprehensive metabolic [...] Work Phone: Start: 02-18-2023 Glucose measurement Generic [facility] Work Phone: Start: 02-18-2023 Glucose measurement Generic [facility] Work Phone: Start: 02-18-2023 Myocardial spect multiple studies Andrea King MD Work Phone: Start: 02-18-2023 Glucose measurement [facility] Work Phone: Start: 02-18-2023 Assay of troponin quantitative Ambrosio Butcher MD Work Phone: Start: 02-18-2023 Electrocardiogram [facility] Work Phone: Start: 02-18-2023 End: 02-18-2023 Basic metabolic panel calcium total Ambrosio Butcher MD Work Phone: Start: 02-18-2023 Glucose measurement Generic [facility] Work Phone: Start: 02-18-2023 Assay of [...] Blood culture for bacteria, including anaerobic screen GREEN CH[employer] OFFBEARER-C Laurent Franco Work Phone: Start: 08-20-2022 Pulse volume recorder pneumoplethysmography [employer] OFFBEARER-C Laurent Franco Work Phone: Start: 08-19-2022 X-ray of left foot [employer] OFFBEARER-C Laurent Luzak Work Phone: Start: 08-07-2022 Microscopic examination of blood, culture YESENIA ZAMUDIO . Comment on above: Performed By: #### [email or web address] ####Mary Kay Rivera [facility] [address] [place], [place] [address]DrMaris Devin Suresh Start: 12-08-2021 Drug screen, qualitate/multi [...] Baum Start: 09-06-2018 Plain chest X-ray Shameka Buam Start: 07-14-2018 Aerobic microbial culture Shameka Baum [...] Start: 09-01-2017 TROPONIN KEYLA PRATT Start: 09-01-2017 DAMPPROOFER KEYLA PRATT Start: 09-01-2017 INSERT PERIPHERAL IV [...] Colonoscopy Breanna Riccardo Dentition (body structure) K peace Gu Esophagogastroduodenoscopy K peace Gu Hysterectomy Breanna Gu insertion of Infusaport 4 Ka clareadalgisa Riccardo Comment on above: right chest right chest Laparoscopy Breanna Gu Loop electrosurgical excision procedure of cervix Breanna Gu pacemaker 5 Breanna Gu Comment on above: Jan 2012- [facility] Jan 2012- [facility] Structure of eye pro per (body structure) Breanna Gu Plan of Treatment Date Care Activity Detail Author Start: 02-22-2032 DTaP,Tdap and Td Vaccines (2 - Td or Tdap) DTaP,Tdap and Td Vaccines (2 - Td or Tdap) [facility] Start: 02-22-2032 Tetanus vaccination [facility] Start: 2027 Shingles (RZV) Vaccine (1 of 2) Shingles (RZV) Vaccine (1 of 2) [facility] Start: 03-06-2027 Cholesterol [Mass/volume] in Serum or Plasma Cholesterol [facility] Start: 12-03-2025 Adult BMI Screening Adult BMI Screening [facility] Start: 12-03-2025 Depression Screening Depression Screening [facility] Start: 12-03-2025 Tobacco Screening Tobacco Screening [facility] Start: 08-02-2025 Urine screening for protein eGFR Diabetes [facility] Start: 04-04-2025 Urine screening for protein eGFR Diabetes [facility] Start: 03-25-2025 eGFR Diabetes eGFR Diabetes [facility] Start: 03-25-2025 Urine screening for protein eGFR Diabetes [facility] Start: 03-22-2025 Urine screening for protein eGFR Diabetes [facility] Start: 03-03-2025 End: 03-03-2025 Patient encounter procedure 03/03/2025 8:00 AM EDT Office Visit [facility] [address] [address] Lexy Leach MD [address] [address] [facility] Start: 02-14-2025 COVID-19 Vaccine ( season) COVID-19 Vaccine ( season) [facility] Comment on above: Postponed from 01/24/2024 (Treatment Not Available) Start: 02-14-2025 COVID-19 Vaccine ( season) COVID-19 Vaccine ( season) [facility] Comment on above: Postponed from 01/24/2024 (Treatment Not Available) Start: 02-02-2025 Hemoglobin A1c measurement HBA1C TEST [facility] Start: 01-23-2025 Influenza vaccination [facility] Start: 01-17-2025 Urine screening for protein eGFR Diabetes [facility] Start: 01-05-2025 End: 01-05-2025 Patient encounter procedure 01/05/2025 7:30 AM EDT Office Visit [facility] [place] [address] [place] [address] Mihai Elizalde, SENIOR COGNOS DEVELOPER [address] [place] [address] [facility] Start: 01-01-2025 Hemoglobin A1c measurement A1C [facility] Start: 12-28-2024 Bacteria identified in Urine by Culture Urine Culture [facility] Start: 12-28-2024 Urine culture [facility] Start: 12-21-2024 End: 12-21-2024 Patient encounter procedure 12/21/2024 10:40 AM EDT Office Visit [facility] [place] [address] [place] [address] Mihai Elizalde, SENIOR COGNOS DEVELOPER [address] [place] [address] [facility] Start: 12-12-2024 End: 12-12-2024 Patient encounter procedure 12/12/2024 3:30 PM EDT Office Visit [facility] [address] [place] [address] Sahara Sanchez MD [address] [place] [address] [facility] Start: 12-07-2024 End: 12-07-2024 Patient encounter procedure 12/07/2024 10:00 AM EDT Office Visit [facility] [address] [facility] [place] [address] Lindsay Johnson APRN-SENIOR COGNOS DEVELOPER [address] [place] [address], [place] [address] [facility] Start: 12-05-2024 End: 12-05-2024 Patient encounter procedure 12/05/2024 2:20 PM EDT Office Visit [facility] Primary Care Physicians [address] [place] [address] Stephany Pelayo PA-C [address] [place] [address] [facility] Start: 12-04-2024 Diabetic foot examination Diabetic Foot Exam [facility] Start: 11-08-2024 Glaucoma screening [facility] Start: 11-02-2024 Hemoglobin A1c measurement A1C [facility] Start: 10-28-2024 Urine screening for protein eGFR Diabetes [facility] Start: 10-14-2024 End: 10-14-2024 Patient encounter procedure 10/14/2024 8:40 AM EDT Office Visit [facility] [place] [address] Stephany Pelayo PA-C [address] [place] [address] [facility] Start: 10-11-2024 End: 10-11-2024 Patient encounter procedure 10/11/2024 2:30 PM EDT Office Visit [facility] Orthoped[facility] [place] [address] Mery Robles MD [facility] [place] [address] [facility] Start: 10-10-2024 End: 10-10-2024 Patient encounter procedure 10/10/2024 3:40 PM EDT Office Visit [facility] [place] [address] Stephany Pelayo PA-C [address] [place] [address] [facility] Start: 09-28-2024 End: 09-28-2024 Patient encounter procedure 09/28/2024 9:45 AM EDT Office Visit [facility] End[facility]in[facility] [address] [place] [address] Sahara Sanchez MD [address] [facility] [place] [address] [facility] Start: 09-27-2024 Urine screening for protein eGFR Diabetes [facility] Start: 09-23-2024 End: 09-23-2025 External Lab Urine Drug Screen External Lab Urine Drug Screen Lab Routine Lumbar radiculopathy Chronic pain syndrome Expected: 09/23/2024, Expires: 09/23/2025 [facility] Work Phone: Comment on above: Expected: 09/23/2024, Expires: Start: 09-23-2024 End: 09-23-2024 Patient encounter procedure 09/23/2024 10:30 AM EDT Office Visit [facility] [place] [address] [place] [address] Jim Velez DO [address] [place] [address] [facility] Start: 09-02-2024 History and physical examination, annual for health maintenance Wellness Visit [facility] Start: 09-02-2024 Screening for malignant neoplasm of colon Colorectal Cancer Screening/Monitoring [facility] Comment on above: Postponed from 1977 (Patient Refus ed) Start: 09-02-2024 Urine screening for protein Urine Microalbumin [facility] Start: 08-23-2024 End: 08-23-2024 Patient encounter procedure [facility] Start: 08-22-2024 End: 08-22-2024 Patient encounter procedure 08/22/2024 1:30 PM EDT Office Visit [facility] [address] [place] [address] Rafaela Medrano, SENIOR COGNOS DEVELOPER [address] [place] [address] [facility] Start: 08-10-2024 End: 08-10-2024 Patient encounter procedure [facility] Sp[facility] Surgery Start: 08-09-2024 End: 08-09-2024 Patient encounter procedure 08/09/2024 4:00 PM EDT Office Visit [facility] [place] [address] [place] [address] Jim Velez DO [address] [place] [address] [facility] Start: 07-28-2024 End: 07-28-2024 Patient encounter procedure 07/28/2024 2:20 PM EST Office Visit [facility] [address] [place], [place] [address] [address] Stephany Pelayo PA-C [address] [facility] 2 [place] [address] [facility] Start: 07-26-2024 End: 07-26-2024 ambulatory [facility] Start: 07-26-2024 End: 07-26-2024 Patient encounter procedure 07/26/2024 11:00 AM EST Office Visit [facility] [address] [place], [place] [address] [address] Stephany Pelayo PA-C [address] [facility] [address] [place] [address] [facility] Start: 07-20-2024 Urine screening for protein eGFR Diabetes [facility] Start: 07-08-2024 End: 07-08-2024 Patient encounter procedure 07/08/2024 8:50 AM EST Office Visit [facility] [address] [place] [address] Soto Box, DPM FACFAS [address] [place] [address] [facility] Start: 07-07-2024 End: 07-07-2024 Patient encounter procedure 07/07/2024 2:20 PM EST Office Visit [facility] [address] [place] [phone] Stephany Pelayo PA-C [address] [place] [address] [facility] Start: 07-05-2024 End: 07-05-2024 Patient encounter procedure 07/05/2024 8:20 AM EST Office Visit [facility] [address] [facility] [place] [address] Soto Box, DPM FACFAS [address] [place] [address] Arrived [facility] Comment on above: Arrived Start: 06-22-2024 Hemoglobin A1c measurement [facility] Start: 06-20-2024 End: 06-20-2024 Patient encounter procedure 06/20/2024 9:40 AM EST Office Visit [facility] [address] [address] Virgen Campos MD [address] [place] [address] [facility] Start: 05-11-2024 End: 05-11-2024 ambulatory [facility] Start: 05-11-2024 End: 05-11-2024 Patient encounter procedure 05/11/2024 2:15 PM EST Office Visit [facility] [address] [place] [address] Sahara Sanchez MD [address] [place] [address] [facility] Start: 05-11-2024 End: 05-11-2024 ambulatory [facility] Start: 05-11-2024 End: 05-11-2024 Patient encounter procedure 05/11/2024 10:15 AM EST Office Visit [facility] [address] [place] [phone] Ramiro Hale MD [address] [facility] [address] [place] [address] Discharge Disposition: Home [facility] Start: 05-06-2024 COVID-19 Vaccine () COVID-19 Vaccine () [facility] Comment on above: Postponed from 01/23/2023 (Patient Refus ed) Start: 05-06-2024 Hepatitis C screening Hepatitis C Screening [facility] Comment on above: Postponed from 1995 (Patient Refus ed) Start: 05-06-2024 HIV screening HIV Screening [facility] Comment on above: Postponed from 1992 (Patient Refus ed) Start: 05-06-2024 Screening for malignant neoplasm of cervix Pap Smear [facility] Comment on above: Postponed from 1998 (Patient Refus ed) Start: 05-05-2024 End: 05-05-2024 Patient encounter procedure 05/05/2024 11:40 AM EST Office Visit [facility] [address] [place] [address] Mihai Elizalde, BEATRIZ [address] [facility] [place] [address] [facility] Start: 04-27-2024 End: 04-27-2024 ambulatory [facility] [place] Start: 04-27-2024 End: 04-27-2024 Patient encounter procedure 04/27/2024 3:40 PM EST Office Visit [facility] [place] [address] [place] [address] Mihai Elizalde, SENIOR COGNOS DEVELOPER [address] [place] [address] [facility] [place] Start: 04-19-2024 End: 04-19-2024 Patient encounter procedure 04/19/2024 8:40 AM EST Office Visit [facility] [place] [address] [place] [address] Mihai Elizalde, SENIOR COGNOS DEVELOPER [address] [place] [address] [facility] [facility] [place] Start: 04-14-2024 Diabetic foot examination Diabetic Foot Exam [facility] Start: 04-13-2024 Hemoglobin A1c measurement A1C [facility] Start: 04-01-2024 End: 04-01-2024 Patient encounter procedure 04/01/2024 11:00 AM EST Office Visit [facility] Primary Care Physicians [address] [place] [address] Stephany Pelayo PA-C [address] [place] [address] [facility]icians Start: 03-22-2024 End: 03-22-2024 Patient encounter procedure 03/22/2024 11:00 AM EDT Office Visit [facility] Primary Care Physicians [address] [place] [address] Stephany Pelayo PA-C [address] [place] [address] [facility] Physicians Start: 03-03-2024 End: 03-03-2024 Patient encounter procedure [facility] Primary Care Start: 03-01-2024 End: 03-01-2024 Patient encounter procedure 03/01/2024 11:30 AM EDT Office Visit [facility] Psych [address] [place] [address] Rosario Sanchez MD [address] [place] [address] [facility] Psych Start: 02-17-2024 End: 02-17-2024 Patient encounter procedure 02/17/2024 1:40 PM EDT Office Visit [facility] Neurology [address] [place] [address] Virgen Campos MD [address] [place] [address] [facility] Neurology Start: 02-10-2024 End: 02-10-2024 Patient encounter procedure 02/10/2024 1:00 PM EDT Office Visit [facility] Primary Care Physicians [address] [facility] [place] [address] Rafaela Medrano, SENIOR [employer] DEVELOPER [address] [place] [address] [facility] Physicians Start: 02-02-2024 End: 02-02-2024 Patient encounter procedure 02/02/2024 4:00 PM EDT Office Visit [facility] [place] [address] [facility] [place] [address] Jim Velez, [address] [facility] [place] [address] [facility] [place] Start: 01-28-2024 End: 01-28-2024 Patient encounter procedure 01/28/2024 2:00 PM EDT Office Visit [facility] Psych [address] [place] [address] Rosario Sanchez MD [address] [place] [address] [facility] Start: 01-27-2024 End: 01-27-2024 Patient encounter procedure 01/27/2024 1:30 PM EDT Office Visit [facility] Primary Care Physicians [address] [facility] [place] [address] Rafaela Medrano, SENIOR COG[employer] DEVELOPER [address] [place] [address] [facility]icians Start: 01-24-2024 COVID-19 VACCINE ( season) COVID-19 VACCINE ( season) [facility] Start: 01-24-2024 COVID-19 Vaccine ( season) COVID-19 Vaccine ( season) [facility] Start: 01-24-2024 COVID-19 Vaccine ( season) COVID-19 Vaccine ( season) [facility] Start: 01-24-2024 Influenza vaccination Influenza Vaccine (#1) [facility] Start: 01-19-2024 End: 01-19-2024 Patient encounter procedure 01/19/2024 11:30 AM EDT Office Visit [facility] Psych [address] [facility] [address] [place] [address] Rosario Sanchez MD [address] [place] [address] [facility] Psych Start: 01-15-2024 Hemoglobin A1c measurement A1C [facility] Start: 12-23-2023 End: 12-23-2023 ambulatory 12/23/2023 3:15 PM EDT Evaluation [facility] [address] [facility] [place] [address] Jim [place]elez, DO [address] [place] [address] Mary Wells, PT Discharge Disposition: Home [facility] Start: 12-22-2023 End: 12-22-2023 Patient encounter procedure 12/22/2023 2:00 PM EDT Office Visit [facility] Physician [facility] [address] [place] [address] Sharla Camara PA-C [address] [place] [address] [facility] Physician [facility] Start: 12-21-2023 End: 12-21-2023 Patient encounter procedure 12/21/2023 2:00 PM EDT Office Visit [facility] Neurology [address] [place] [address] Virgen Campos MD [address] [place] [address] [facility] Neurology Start: 12-14-2023 End: 12-14-2023 Patient encounter procedure 12/14/2023 10:00 AM EDT Office Visit [facility] Endocrinology [address] [place] [address] Sahara Sanchez MD [address] [place] [address] [facility] Endocrinology Start: 12-08-2023 End: 12-08-2023 Patient encounter procedure 12/08/2023 2:00 PM EDT Office Visit [facility] [place] [address] [place] [address] Stephany Pelayo PA-C [address] [place] [address] Jim Velez DO [address] [place] [address] [facility] [place] Start: 12-03-2023 End: 12-03-2023 Patient encounter procedure 12/03/2023 2:00 PM EDT Office Visit [facility] [place] [address] [place] [address] Jim Velez DO [address] [place] [address] [facility] [place] Start: 12-02-2023 End: 12-02-2023 Patient encounter procedure 12/02/2023 1:45 PM EDT Office Visit [facility] Endocrinology [address] [place] [address] Stephany Pelayo PA-C [address] [place] [address] Sahara Sanchez MD [address] [place] [address] [facility] Endocrinology Start: 11-19-2023 End: 11-19-2023 Patient encounter procedure 11/19/2023 12:40 PM EDT Office Visit [facility] Primary Care [address] [place] [address] Stephany Pelayo PA-C [address] [place] [address] [facility] Primary Care Start: 11-19-2023 End: 11-19-2023 ambulatory 11/19/2023 9:00 AM EDT Evaluation [facility] Ophthalmology [address] [place] [id number] Stephany Pelayo PA-C [address] [place] [address] Karon Monzon, [address] [place] [address] [facility]hthal[facility] Start: 10-13-2023 End: 10-13-2023 Patient encounter procedure 10/13/2023 11:20 AM EDT Office Visit [facility] Primary Care [address] [place] [address] Stephany Pelayo, PAKandi [address] [place] [address] [facility] Primary Care Start: 10-08-2023 End: 10-08-2023 Patient encounter procedure 10/08/2023 7:00 AM EDT Appointment [facility] [address] [place] [address] Virgen Campos MD [address] [place] [address] [facility] Start: 10-07-2023 End: 10-07-2023 Patient encounter procedure [facility] Psych Start: 10-03-2023 Glaucoma screening Diabetic Eye Exam [facility] Comment on above: Postponed from 1987 (Per Other [facility] Practice Guidelines) Start: 09-16-2023 End: 09-16-2023 Patient encounter procedure 09/16/2023 1:00 PM EDT Office Visit [facility] Neurology [address] [place] [address] Virgen Campos MD [address] [place] [address] [facility] Neurology Start: 09-03-2023 End: 09-03-2023 Patient encounter procedure 09/03/2023 2:00 PM EDT Office Visit [facility] Primary Care [address] [place] [address] Stephany Pelayo, BHARAT [address] [place] [address] [facility] Primary Care Start: 08-19-2023 End: 08-19-2023 Patient encounter procedure 08/19/2023 2:00 PM EDT Office Visit [facility] Physician [facility] [address] [place] [address] Sharla Camara PA-C [address] [place] [address] [facility] Physician [facility] Start: 08-09-2023 Hemoglobin A1c measurement A1C [facility] Start: 08-03-2023 End: 08-03-2023 Patient encounter procedure 08/03/2023 2:30 PM EDT Initial consult [facility] Psych [address] [place] [address] Stephany Pelayo PA-C [address] [place] [address] Rosario Sanchez MD [address] [place] [address] [facility] Start: 07-23-2023 Diabetic foot examination Diabetic Foot Exam [facility] Comment on above: Postponed from 1987 (Per Other [facility] Practice Guidelines) Start: 07-03-2023 End: 07-03-2023 ambulatory 07/03/2023 9:00 AM EST Evaluation [facility] Ophthalmology [address] [place] [address] Stephany Pelayo PA-C [address] [place] [address] Karon Monzon DO [address] [place] [address] [facility] Ophthal[facility] Start: 06-29-2023 Hemoglobin A1c measurement A1C [facility] Start: 06-29-2023 End: 06-29-2023 Patient encounter procedure 06/29/2023 10:00 AM EST Office Visit [facility] Cardiology [address] [place] [address] Dakota Edward MD [address] [place] [address] [facility] Start: 06-23-2023 End: 06-23-2023 Patient encounter procedure 06/23/2023 8:15 AM EST Office Visit [facility] Endocrinology [address] [place] [address] Stephany Pelayo PA-C [address] [place] [address] Sahara Sanchez MD [address] [place] [address] [facility] Endocrinology Start: 06-22-2023 End: 06-22-2023 ambulatory 06/22/2023 2:30 PM EST Evaluation [facility] Ophthalmology [address] [place] [address] Karon Monzon, [address] [place] [address] [facility] Ophthal[facility] Start: 06-22-2023 End: 06-22-2024 Bacteria identified in Unspecified specimen by Aerobe culture Urine Aerobic Culture Microbiology Routine Incontinence in female Expected: 06/22/2023 (Approximate), Expires: 06/22/2024 [facility] Comment on above: Expected: 06/22/2023 (Approximate), Expi res: 06/22/2024 Start: 06-22-2023 End: 06-21-2024 Urinalysis Urinalysis with microscopic Lab Routine Incontinence in female Expected: 06/22/2023 (Approximate), Expires: 06/21/2024 [facility] Work Phone: Comment on above: Expected: 06/22/2023 (Approximate), Expi res: 06/21/2024 Start: 06-11-2023 End: 06-11-2023 Patient encounter procedure 06/11/2023 9:00 AM EST Office Visit [facility] Neurology [address] [place] [address] Virgen Campos MD [address] [place] [address] [facility] Neurology Start: 06-03-2023 End: 06-03-2023 Patient encounter procedure 06/03/2023 11:00 AM EST Office Visit [facility] Cardiology [address] [facility] [place] [address] Stephany Pelayo PA-C [address] [place] [address] Cristy Najera MD [address] [facility] [place] [address] [facility] Card[facility] Start: 05-28-2023 End: 05-28-2023 Home visit 05/28/2023 8:00 AM EST Home Care Visit [facility] [address] [place] [address] Sharla Paulino PSA [facility] Start: 05-26-2023 End: 05-26-2023 Home visit 05/26/2023 8:00 AM EST Home Care Visit [facility] [address] [place] [address] Sharla Paulino PSA [facility] Start: 05-23-2023 Glaucoma screening Diabetic Eye Exam [facility] Comment on above: Postponed from 1987 (Per Other [facility] t Practice Guidelines) Start: 05-21-2023 End: 05-21-2023 Home visit 05/21/2023 8:00 AM EST Home Care Visit [facility] [address] [place] [address] Sharla Paulino PSA [facility] Start: 05-19-2023 End: 05-19-2023 Home visit 05/19/2023 8:45 AM EST Home Care Visit [facility] [address] [place] [address] Sharla Paulino PSA [facility] Start: 05-15-2023 End: 05-15-2023 Patient encounter procedure [facility] Primary Care Start: 05-14-2023 End: 05-14-2023 Home visit 05/14/2023 8:00 AM EST Home Care Visit [place] [address] [place] [address] Sharla Paulino PSA [facility] Start: 05-12-2023 End: 05-12-2023 Home visit 05/12/2023 8:45 AM EST Home Care Visit [place] [address] [place] [address] Sharla Paulino PSA [facility] Start: 05-07-2023 End: 05-07-2023 Patient encounter procedure 05/07/2023 1:00 PM EST Office Visit [facility] Neurology [address] [place] [address] [address] [place] [address] Virgen Campos MD [address] [place] [address] [address] [place] [address] [facility] Neurology Start: 05-07-2023 End: 05-07-2023 Home visit 05/07/2023 8:00 AM EST Home Care Visit [facility] [address] [place] [address] Sharla Paulino PSA [facility] Start: 05-05-2023 End: 05-05-2023 Home visit 05/05/2023 8:45 AM EST Home Care Visit [place] [address] [place] [address] Sharla Paulino PSA [facility] Start: 04-30-2023 End: 05-01-2023 Home visit [facility] Start: 04-29-2023 End: 04-29-2023 Home visit [facility] Start: 04-28-2023 End: 04-28-2023 Home visit 04/28/2023 10:15 AM EST Home Care Visit [facility] [address] [place] [address] Sharla Paulino PSA [facility] Start: 04-27-2023 End: 04-28-2023 Home visit [facility] Start: 04-27-2023 End: 04-27-2023 Home visit 04/27/2023 4:30 AM EST Home Care Visit [place] [address] [place] [address] Carlitos Carrera LPN [facility] Start: 04-24-2023 End: 04-24-2023 Home visit 04/24/2023 7:30 AM EST Home Care Visit [facility] [address] [place] [address] Carlitos Carrera LPN [facility] Start: 04-23-2023 End: 04-23-2023 Home visit 04/23/2023 12:30 PM EST Home Care Visit [facility] [address] [place] [address] Radha Jaemson OTA [facility] Home Health Start: 04-23-2023 End: 04-23-2023 Home visit 04/23/2023 9:15 AM EST Home Care Visit [place] [address] [place] [address] Sharla Paulino PSA [facility] Start: 04-22-2023 End: 04-22-2023 Home visit [facility] Start: 04-21-2023 End: 04-21-2023 Home visit 04/21/2023 3:30 PM EST Home Care Visit [facility] [address] [place] [address] Tiny Arias PTA [facility] Start: 04-21-2023 End: 04-21-2023 Home visit 04/21/2023 12:30 PM EST Home Care Visit [facility] [address] [place] [address] Radha Jameson OTA [facility] Start: 04-21-2023 End: 04-21-2023 Home visit [facility] Start: 04-20-2023 End: 04-20-2023 Home visit [facility] Start: 04-17-2023 End: 04-17-2023 Home visit [facility] Start: 04-15-2023 End: 04-15-2023 Home visit [facility] Start: 04-14-2023 Hemoglobin A1c measurement A1C [facility] Start: 04-14-2023 End: 04-14-2023 Home visit 04/14/2023 12:15 PM EST Home Care Visit [facility] [address] [place] [address] Carolina Boston PSA [facility] Start: 04-14-2023 End: 04-14-2023 Home visit 04/14/2023 10:15 AM EST Home Care Visit [facility] [address] [place] [address] Sharla Paulino PSA [facility] Start: 04-13-2023 End: 04-13-2023 Home visit 04/13/2023 Home Care Visit [facility] [address] [place] [address] Tiny Arias PTA [facility] Start: 04-10-2023 End: 04-10-2023 Home visit 04/10/2023 5:45 AM EST Home Care Visit [facility] [address] [place] [address] Cece Colin OT [facility] Start: 04-09-2023 End: 04-09-2023 Home visit [facility] Start: 04-08-2023 End: 04-08-2023 Home visit 04/08/2023 11:30 AM EST Home Care Visit [facility] [address] [place] [address] Carlitos Carrera LPN [facility] Start: 04-07-2023 End: 04-08-2023 Home visit [facility] Start: 04-03-2023 End: 04-03-2023 Home visit 04/03/2023 11:15 AM EST Home Care Visit [facility] [address] [place] [address] Sharla Paulino PSA [facility] Start: 04-03-2023 End: 04-03-2023 Home visit 04/03/2023 8:30 AM EST Home Care Visit [facility] [address] [place] [address] Cece Colin OT [facility] Start: 04-03-2023 End: 04-03-2023 Home visit 04/03/2023 4:30 AM EST Home Care Visit [facility] [address] [place] [address] Karen Prather PT [facility] Start: 02-09-2023 End: 02-09-2023 Patient encounter procedure 02/09/2023 2:45 PM EDT Office Visit [facility] Orthopedics [address] [facility] [place] [address] Josué Christianson DO [address] [facility] [address] [facility] Start: 01-23-2023 COVID-19 VACCINE (2022-24 season) COVID-19 VACCINE ( season) [facility] Start: 01-23-2023 COVID-19 VACCINE ( season) COVID-19 VACCINE ( season) [facility] Start: 01-23-2023 COVID-19 Vaccine ( season) COVID-19 Vaccine ( season) [facility] Start: 01-23-2023 Influenza vaccination Sequential Influenza Vaccine (#1) [facility] Start: 09-12-2022 [facility] Start: 09-12-2022 OR DSA (Angiogram) W/TLA/Stent Left Leg (Left) OR DSA (Angiogram) W/TLA/Stent Left Leg (Left) [facility] Start: 08-22-2022 [facility] Start: 08-22-2022 Lower limb angiography IR Angiogram Left Leg (Left) [facility] Start: 08-21-2022 Referral to vascular surgeon [facility] Start: 08-20-2022 Blood culture for bacteria, including anaerobic screen Blood Culture [facility] Start: 08-20-2022 Drainage of Left Foot Skin, External Approach Drainage of Left Foot Skin, External Approach [facility] Start: 08-20-2022 Referral to infectious diseases physician [facility] Start: 08-20-2022 Hospital admission [facility] Start: 08-20-[address] judge [facility] Start: 08-19-2022 Plain chest X-ray XR chest 1V portable [facility] Start: 08-19-2022 X-ray of left foot XR foot LT min 3V* [facility] Start: 08-19-2022 XR Chest Single view [facility] Start: 08-19-2022 XR Foot - left GE 3 Views [facility] Start: 2022 Screening for malignant neoplasm of colon [facility] Start: 03-06-2022 Pneumococcal Vaccine: Ped or At-Risk (2 - PCV) Pneumococcal Vaccine: Ped or At-Risk (2 - PCV) [facility] Start: 01-23-2022 Influenza vaccination Flu vaccine (#1) [facility] Start: 04-13-2021 COVID-19 Vaccine (2 - Pfizer series) COVID-19 Vaccine (2 - Pfizer series) [facility] Start: 04-13-2021 COVID-19 Vaccine (3 - Mixed Product series) COVID-19 Vaccine (3 - Mixed Product series) [facility] Start: 12-02-2020 HbA1c (Bld) [Mass fraction] A1C [facility] Start: 04-01-2018 Potassium [Moles/volume] in Serum or Plasma POTASSIUM [facility] Start: 09-11-2017 Hemoglobin A1c measurement HBA1C TEST [facility] Start: 2017 Screening for malignant neoplasm of breast [facility] Start: 01-23-2017 Influenza vaccination SEQUENTIAL INFLUENZA VACCINE (#1) [facility] Work Phone: Start: 05-25-2016 Lipid panel Lipids [facility] Start: 04-02-2014 HbA1c HEMOGLOBIN A1C [facility] Work Phone: Start: 05-27-2013 Urine screening for protein Urine Microalbumin [facility] Start: 05-27-2013 Urine, microalbumin URINE MICROALBUMIN [facility] Work Phone: Start: 06-30-2009 Lipid panel LIPIDS [facility] Start: 06-02-2009 Urine screening for protein [facility] Start: 2007 Screening for malignant neoplasm of cervix [facility] Start: 1998 Screening for malignant neoplasm of cervix [facility] Start: 1996 DTaP/Tdap/Td vaccine (1 - Tdap) DTaP/Tdap/Td vaccine (1 - Tdap) [facility] Start: 1996 Hepatitis B vaccination HEP B VACCINE (1 of 3 - 19+ 3-dose series) [facility] Start: 1995 Adult BMI Follow Up Plan Adult BMI Follow Up Plan [facility] Start: 1995 Hepatitis C antibody, confirmatory test Hepatitis C Screening [facility] Start: 1995 Hepatitis C screening [facility] Start: 1993 COVID-19 Vaccine (1 of 2) COVID-19 Vaccine (1 of 2) [facility] Start: 1992 [facility]: [facility] Depression Screen [facility] Start: 1987 Diabetic foot examination (regime/therapy) [facility] Start: 1987 Glaucoma screening [facility] Start: 1987 Ophthalmic examination and evaluation OPHTHALMOLOGY EXAM [facility] Work Phone: Start: 1987 Urine screening for protein Urine (micro)albumin/creatini ne ratio - Diabetes [facility] Start: 1980 History and physical examination, annual for health maintenance Wellness Visit [facility] Start: 1977 COVID-19 Vaccine (#1) COVID-19 Vaccine (#1) [facility] Start: 1977 Diabetic foot examination [facility] Start: 1977 Glaucoma screening EYE EXAM [facility] Start: 1977 Hepatitis C screening HEPATITIS C VIRUS SCREENING [facility] Start: 1977 Screening for malignant neoplasm of cervix PAP SMEAR [facility] Work Phone: Start: 1977 Screening for malignant neoplasm of colon [facility] Start: 1977 Screening mammography Mammogram [facility] Start: 1977 Tetanus vaccination [facility] Work Phone: Start: 1977 Thyroid stimulating hormone measurement TSH [facility] Start: 1977 Tobacco Counseling Tobacco Counseling [facility] Aerobic microbial culture Wound Aerobic Culture Microbiology Routine 06/05/2020 11:32 AM EST [facility] Bacteria identified Cx Nom (Bld) Blood Culture Aerobic/Anaerobic Microbiology Routine 06/03/2020 2:39 PM EST [facility] Bacteria identified in Blood by Culture [facility] Work Phone: Bacteria identified in Unspecified specimen by Anaerobe culture [facility] End: 09-02-2024 Basic metabolic 2000 panel - Serum or Plasma Basic Metabolic Panel Lab Routine Primary hypertension 1 Occurrences starting 09/03/2023 until 09/02/2024 [facility] Comment on above: 1 Occurrences starting 09/03/2023 until 09/02/2024 End: 01-26-2025 Basic metabolic 2000 panel - Serum or Plasma Basic Metabolic Panel Lab Routine SOLO (acute kidney injury) (HCC) 1 Occurrences starting 01/27/2024 until 01/26/2025 [facility] Work Phone: Comment on above: 1 Occurrences starting 01/27/2024 until 01/26/2025 End: 10-07-2022 Blood typing serologic abo ABO RH TYPE Lab STAT One time for 1 Occurrences starting 10/07/2022 until 10/07/2022 [facility] Comment on above: One time for 1 Occurrences starting 09/22 until 10/07/2022 End: 03-22-2025 Clostridium difficile toxin assay Clostridium Difficile Testing Microbiology Routine Diarrhea, unspecified type 1 Occurrences starting 03/22/2024 until 03/22/2025 [facility] Comment on above: 1 Occurrences starting 03/22/2024 until 03/22/2025 End: 03-22-2025 Complete blood count with white cell differential, manual CBC and Differential Lab Routine Diarrhea, unspecified type Abdominal cramping 1 Occurrences starting 03/22/2024 until 03/22/2025 [facility] Comment on above: 1 Occurrences starting 03/22/2024 until 03/22/2025 End: 08-02-2025 Complete blood count with white cell differential, manual CBC and Differential Lab Routine Primary hypertension 1 Occurrences starting 08/02/2024 until 08/02/2025 [facility] Work Phone: Comment on above: 1 Occurrences starting 08/02/2024 until 08/02/2025 End: 10-12-2024 Comprehensive metabolic 2000 panel - Serum or Plasma Comprehensive Metabolic Panel Lab Routine RUQ abdominal pain 1 Occurrences starting 10/13/2023 until 10/12/2024 [facility] Comment on above: 1 Occurrences starting 10/13/2023 until 10/12/2024 End: 03-22-2025 Comprehensive metabolic 2000 panel - Serum or Plasma Comprehensive Metabolic Panel Lab Routine Diarrhea, unspecified type Abdominal cramping 1 Occurrences starting 03/22/2024 until 03/22/2025 [facility] Comment on above: 1 Occurrences starting 03/22/2024 until 03/22/2025 End: 09-15-2024 EEG (STANDARD) EEG (Standard) Neurology Routine Seizure (HCC) 1 Occurrences starting 09/16/2023 until 09/15/2024 [facility] Work Phone: Comment on above: 1 Occurrences starting 09/16/2023 until 09/15/2024 External Lab Urine D rug Screen External Lab Urine Drug Screen Lab Routine Encounter for monitoring opioid maintenance therapy Ordered: 05/13/2024 [facility] Work Phone: Comment on above: Ordered: 05/13/2024 End: 03-22-2025 Gastrointestinal pathogens DNA and RNA panel - Stool by EBONIE with non-probe detection Stool/GI PCR Panel Microbiology Routine Diarrhea, unspecified type 1 Occurrences starting 03/22/2024 until 03/22/2025 [facility] Work Phone: Comment on above: 1 Occurrences starting 03/22/2024 until 03/22/2025 End: 09-02-2024 Hemoglobin A1c/Hemoglobin.total in Blood Hemoglobin A1c Lab Routine Type 2 diabetes mellitus with diabetic polyneuropathy, with long-term current use of insulin (HCC) 1 Occurrences starting 09/03/2023 until 09/02/2024 [facility] Work Phone: Comment on above: 1 Occurrences starting 09/03/2023 until 09/02/2024 End: 07-07-2024 MG Breast - bilateral Screening Mammography Screening [place] [facility] Routine Encounter for screening mammogram for malignant neoplasm of breast 1 Occurrences starting 05/06/2023 until 07/07/2024 [facility] Work Phone: Comment on above: 1 Occurrences starting 05/06/2023 until 07/07/2024 End: 10-02-2025 MG Breast - bilateral Screening Mammography Screening Bilateral Imaging Routine Encounter for screening mammogram for malignant neoplasm of breast 1 Occurrences starting 08/02/2024 until 10/02/2025 [facility] Comment on above: 1 Occurrences starting 08/02/2024 until 10/02/2025 Microalbumin measure ment, urine, quantitative Microalbumin, Urine, Random Lab Routine Type 2 diabetes mellitus with diabetic polyneuropathy, with long-term current use of insulin (HCC) Ordered: 12/02/2023 [facility] Work Phone: Comment on above: Ordered: 12/02/2023 Patient Education [facility] Work Phone: Patient referral [facility] Work Phone: Procedure on tissue specimen [facility] Work Phone: End: 10-07-2022 Prothrombin time PROTHROMBIN TIME AND INR Lab STAT One time, now for 1 Occurrences starting 10/07/2022 until 10/07/2022 [facility] on above: One time, now for 1 Occurrences starting 10/07/2022 until 10/07/2022 End: 10-06-2022 RF Spine epidural space Views W contrast IT [employer] Work Phone: Comment on above: One time, now for 1 Occurrences starting 10/06/2022 until 10/06/2022 End: 03-22-2025 Serum levetiracetam measurement Levetiracetam Level Lab Routine Seizures (HCC) 1 Occurrences starting 03/22/2024 until 03/22/2025 [facility] Comment on above: 1 Occurrences starting 03/22/2024 until 03/22/2025 End: 10-07-2022 Thromboplastin time partial plasma/whole blood PARTIAL THROMBOPLASTIN TIME Lab STAT One time, now for 1 Occurrences starting 10/07/2022 until 10/07/2022 [employer] Work Phone: Comment on above: One time, now for 1 Occurrences starting 10/07/2022 until 10/07/2022 End: 09-15-2024 THROMBOTIC RISK SCREEN Thrombotic Risk Screen Lab Routine Lacunar stroke (HCC) 1 Occurrences starting 09/16/2023 until 09/15/2024 [facility] Comment on above: 1 Occurrences starting 09/16/2023 until 09/15/2024 End: 01-26-2025 Thyrotropin [Units/volume] in Serum or Plasma TSH with Reflex Free T4 Lab Routine Hypothyroidism, unspecified type 1 Occurrences starting 01/27/2024 until 01/26/2025 [facility] Comment on above: 1 Occurrences starting 01/27/2024 until 01/26/2025 End: 10-12-2024 US Abdomen US Abdomen Complete Imaging Routine RUQ abdominal pain 1 Occurrences starting 10/13/2023 until 10/12/2024 [facility] Comment on above: 1 Occurrences starting 10/13/2023 until 10/12/2024 End: 09-02-2024 Vitamin D, 25-hydroxy measurement Vitamin D, Total, 25-OH Lab Routine Vitamin D deficiency 1 Occurrences starting 09/03/2023 until 09/02/2024 [facility] Comment on above: 1 Occurrences starting 09/03/2023 until 09/02/2024 End: 10-12-2024 XR Chest PA and Lateral and AP lateral-decubitus XR Chest AP/PA and LAT Imaging Routine Subacute cough 1 Occurrences starting 10/13/2023 until 10/12/2024 [facility] Work Phone: Comment on above: 1 Occurrences starting 10/13/2023 until 10/12/2024 End: 02-10-2025 XR Chest PA and Lateral and AP lateral-decubitus XR Chest AP/PA and LAT Imaging Routine Pleuritic chest pain 1 Occurrences starting 02/11/2024 until 02/10/2025 [facility] Work Phone: Comment on above: 1 Occurrences starting 02/11/2024 until 02/10/2025 End: 09-21-2024 XR Foot - right 3 Views XR Foot Right 3+ Views (Standard) Imaging Routine Right foot ulcer, with fat layer exposed (HCC) 1 Occurrences starting 09/22/2023 until 09/21/2024 [facility] Work Phone: Comment on above: 1 Occurrences starting 09/22/2023 until 09/21/2024 End: 03-22-2025 XR Knee - bilateral 2 Views XR Knees Bilateral 2 Views Each (Standard) Imaging Routine Chronic pain of both knees 1 Occurrences starting 03/22/2024 until 03/22/2025 [facility] Comment on above: 1 Occurrences starting 03/22/2024 until 03/22/2025 End: 08-18-2025 XR Knee - bilateral 4 Views XR Knees Bilateral 4+ Views Each (Specify Views in Comments) Imaging Routine Pain in both knees, unspecified chronicity 1 Occurrences starting 08/18/2024 until 08/18/2025 [facility] Work Phone: Comment on above: 1 Occurrences starting 08/18/2024 until 08/18/2025 End: 02-05-2024 XR Knee Right 4+VWS (Note in Comments) XR Knee Right 4+VWS (Note in Comments) Imaging Routine Right knee pain, unspecified chronicity 1 Occurrences starting 02/04/2023 until 02/05/2024 [facility] Work Phone: Comment on above: 1 Occurrences starting 02/04/2023 until 02/05/2024 End: 08-08-2025 XR Lumbar spine 2 or 3 Views XR Lumbar Spine 2-3 Views (Standard) Imaging Routine Lumbar pain 1 Occurrences starting 08/09/2024 until 08/08/2025 [facility] Work Phone: Comment on above: 1 Occurrences starting 08/09/2024 until 08/08/2025 Immunizations Immunization Date Immunization Notes Care Provider [facility] 02-11-2024 Seasonal, trivalent, recombinant, injectable influenza vaccine, preservative free Stephany Pelayo PA-C Work Phone: [facility] 02-11-2024 influenza virus vaccine, unspecified formulation Kiley Hanley RN [facility] 05-06-2023 influenza, injectabl e, quadrivalent, preservative free Ama Wilcox RN [facility] 05-06-2023 influenza, seasonal, injectable Maye Ramirez LPN [facility] 05-06-2023 Pneumococcal Conjuga te 20-Valent (Prevnar 20) Ama Wilcox RN [facility] 05-06-2023 flu vaccine [id number] up, (FLUZONE QUAD/AFLURIA QUAD) injection Stephany Pelayo PA-C Work Phone: [facility] 05-06-2023 flu vacc [id number] 6 mos up,PF, (FLUZONE QUAD/FLULAVAL QUAD/FLUARIX QUAD) 60 mcg (15 mcg x 4)/0.5 mL Syrg syringe Stephany Pelayo PA-C Work Phone: [facility] 05-06-2023 pneumococcal conj. 20-valent (PREVNAR 20) 0.5 mL vaccine Stephany Pelayo PA-C Work Phone: [facility] 05-06-2023 influenza virus vaccine, unspecified formulation Maite Adams TRACE EVIDENCE TECHNICIAN [facility] 03-29-2023 pneumococcal conj. 20-valent (PREVNAR 20) vaccine 0.5 mL Harshad Rizzo MD Work Phone: [facility] 03-29-2023 Pneumococcal Conjuga te 20-Valent (Prevnar 20) Maye Ramirez LPN [facility] 04-09-2022 influenza, injectabl e, quadrivalent, preservative free Josué Mellis DO Work Phone: [facility] 04-09-2022 influenza, seasonal, injectable Ashutosh BENSONLIN [facility] Comment on above: Reason for Medicatio n: Other (see comment) 02-21-2022 tetanus toxoid, redu sarah diphtheria toxoid, and acellular pertussis vaccine, adsorbed Santos Velez [facility] 03-06-2021 influenza virus vaccine, unspecified formulation Breanna Gu [facility] 03-06-2021 influenza, injectabl e, quadrivalent, preservative free Jocelyn Bowen MD Work Phone: [facility] 03-06-2021 pneumococcal polysaccharide vaccine, 23 valent Breanna Gu [facility] 02-16-2021 COVID-19 mRNA, Comirnaty (Pfizer) [employer] OFFBEARER-C Laurent Franco Work Phone: [facility] 02-16-2021 SARS-CoV-2 (COVID-19 ) Ad26 vaccine, recombinant Breanna Gu [facility] 12-02-2020 Moderna SARS-CoV-2 Vaccination Josué Mellis DO Work Phone: [facility] 06-05-2020 influenza virus vaccine, unspecified formulation Breanna Gu [facility] Comment on above: Result Comment: 2021: . Result Comment: 2021: . 06-05-2020 influenza, injectabl e, quadrivalent, preservative free Ko Hankins [facility] 05-25-2020 influenza virus vaccine, unspecified formulation Breanna Gu [facility] 05-25-2020 influenza, injectabl e, quadrivalent, preservative free Mihai Elizalde [employer]IOR [employer] DEVELOPER Work Phone: [facility] 05-25-2020 influenza, seasonal, injectable Jocelyn Bowen MD Work Phone: [facility] 02-22-2018 influenza virus vaccine, unspecified formulation Breanna Gu [facility] 02-22-2018 influenza, injectabl e, quadrivalent, contains preservative Jocelyn Bowen MD Work Phone: [facility] 02-22-2018 influenza, injectabl e, quadrivalent, preservative free Josué Mellis DO Work Phone: [facility] 05-28-2015 influenza virus vaccine, unspecified formulation Ko Hankins [facility] 05-28-2015 influenza virus vaccine, whole virus Josué Mellis DO Work Phone: [facility] 05-28-2015 influenza, whole Breanna Giovanna thomas [facility] 07-06-2014 pneumococcal polysaccharide vaccine, 23 valent No [facility] Work Phone: 03-26-2014 influenza virus vaccine, unspecified formulation Breanna Gu [facility] 03-26-2014 influenza, seasonal, injectable Jocelyn Bowen MD Work Phone: [facility] Payers Date Payer Category Payer Medicaid [place] [employer] [id number] 2023 Unknown [id number] [id number]. [id number] 2022 Self-pay 2021 Medicaid (Managed Care) 1.2. [id number] 2014 Medicaid [facility] MEDICAID [id number] 2014-Present [id number]. [id number] 2014 Medicaid [id number] 1.13.56.2.7 .[id number] 1977 Unknown [id number] 2.840.1.350731.3.579.2. 478 1977 Unknown [id number] 2.840.1.380314.3.579.2. 647 1977 Unknown [id number] 2.840.1.189094.3.579.2. 185 1977 Unknown [id number] 2.840.1.649675.3.579.2. 732 1977 Unknown [id number] 2.16840.1.025577.3.579.2. 732 1977 Unknown [id number] 2.840.1.912407.3.579.2. 732 1977 Unknown [id number] 2.16.840.1.957670.3.579.2. 593 1977 Unknown [id number] 2.16.840.1.099875.3.579.2. 593 1977 Unknown [id number] 2.16.840.1.076271.3.579.2. 593 1977 Unknown [id number] 2.16.840.1.819357.3.579.2. 593 1977 Unknown [id number] 2.16.840.1.070583.3.579.2. 593 1977 Unknown [id number] 2.16.840.1.118894.3.579.2. 593 1977 Unknown [id number] 2.16.840.1.197265.3.579.2. 593 1977 Unknown [id number] 2.16.840.1.002478.3.579.2. 593 1977 Unknown [id number] 2.16.840.1.580364.3.579.2. 593 1977 Unknown [id number] 2.16.840.1.867321.3.579.2. 593 1977 Unknown [id number] 2.16.840.1.470771.3.579.2. 593 1977 Unknown [id number] 2.16.840.1.548981.3.579.2. 593 1977 Unknown [id number] 2.16.840.1.553552.3.579.2. 593 1977 Unknown [id number] 2.16.840.1.934236.3.579.2. 593 1977 Unknown [id number] 2.16.840.1.523237.3.579.2. 593 1977 Unknown [id number] 2.16.840.1.803870.3.579.2. 593 1977 Unknown [id number] 2.16.840.1.374987.3.579.2. 593 1977 Unknown [id number] 2.16.840.1.736359.3.579.2. 593 1977 Unknown [id number] 2.16.840.1.342075.3.579.2. 593 1977 Unknown [id number] 2.16.840.1.126494.3.579.2. 903 1977 Unknown [id number] 2.16.840.1.477406.3.579.2. 900 1977 Unknown [id number] 2.16840.1.832596.3.579.2. 727 1977 Unknown [id number] 2.16840.1.589156.3.579.2. 903 1977 Unknown [id number] 2.16840.1.398565.3.579.2. 903 1977 Unknown [id number] 2.16840.1.406273.3.579.2. 1259 1977 Unknown [id number] 2.840.1.701057.3.579.2. 903 1977 Unknown [id number] 2.16.840.1.474171.3.579.2. 903 1977 Unknown [id number] 2.16840.1.387988.3.579.2. 903 1977 Unknown [id number] 2.16840.1.081477.3.579.2. 903 1977 Unknown [id number] 2.16840.1.883240.3.579.2. 90 1977 Unknown [id number] 2.16840.1.967796.3.579.2. 903 1977 Unknown [id number] 2.16.840.1.808929.3.579.2. 90 1977 Unknown [id number] 2.16.840.1.542492.3.579.2. 1977 Unknown [id number] 2.16.840.1.633652.3.579.2 1977 Unknown [id number] 2.16.840.1.173600.3.579.2 1977 Unknown [id number] 2.16.840.1.045851.3.579.2 1977 Unknown [id number] 2.16.840.1.685852.3.579.2 1977 Unknown [id number] 2.16.840.1.806299.3.579.2 1977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 ADULT (Latvian)Levetiracetam, ADULT (Latvian)documented in this encounter [facility] 12-05-2024 Progress note Formatting of t his note might be different from the original. DISCHARGE PLANNING NOTE Referral to [facility]- P# ; F# , [address] [facility] [place] (P# ; F# ) , [facility] - [facility] (P# ; F# ) [employer] [facility] 12-05-2024 Progress note Formatting of t his [...] brain (-); Blood sugar 640- transferred to [facility] Neuro- MRI brain; B vision loss likely 2/2 hyperglycemic refraction error PMH- bipolar Dx- diabetic retinopathy, mild-moderate diabetic macular edema R eye Past Medical History: Diagnosis Date Arrhythmia Arthritis Bipolar disorder ([facility]) Bronchitis, chronic ([facility]) Chronic constipation Chronic kidney disease Depression Diabetes mellitus type 2, controlled ([facility]) 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 Meningitis Sudden [...] 6 Clicks: Basic Mobility Raw Score: 14 [facility] G Code Modifier: CK PT Treatment/Interventions: Functional [...] eval Equipment: RW, gait belt, ex cath Telemetry/Pitch Worker: Yes Oxygen Used: room air Other: (S) [...] Patient will perform bed mobility with [place] Dates: Start: 12/05/24 Expected End: 12/22/24 Description: [...] vision Active Problems: Hyperosmolar hyperglycemic state (HHS) ([facility]) SOLO (acute kidney injury) HHS (hypothenar hammer syndrome) [facility] 12-05-2024 Progress note Formatting of t his [...] care [facility] tasked to send referrals to [address] and [facility] care. Patient stated she lives on the first floor of her daughter's home off the dining room and her son lives in the basement. Recyclable Products Sorter will continue to follow for any discharge needs. - Crista Leung RN 12/05/24 11:52 AM Addendum: PT/OT rec SNF. CN met with patient and discussed therapy recommendation. Patient stated NO to SNF option. [address] is possibly accepting for home care. Waiting on final decision from [address] Patient insists she lives on the first floor and her son is the one who lives In the basement bedroom. CN tried to call daughter. - Crista Leung RN 12/05/24 1:04 PM Blood sugars have stablized and patient will be discharged today.. CN met with patient to discuss that [address] home care could accept referral and patient stated she will have to Call Medicaid provider for transport. CN stayed to verify with Medicaid transport provider that the patient is discharging from [facility] going home, cab transport arranged for 4pm at enterance A. Nurse and attending physician notified . DC CRF completed and [facility] tasked to send DC orders to [address] care. - Crista Leung RN 12/05/24 3:35 PM [facility] 12-05-2024 Progress note Formatting of t his [...] None Scoring Daily Activity Raw Score: 16 [facility] G Code Modifier: CK Therapy Plan Need for skilled Occupational Therapy to address deficits in ADL independence and functional mobility due to a status decline resulting from B vision loss Pt admitted 12/02 from OSH with sudden onset vision loss B eyes. EMS witnessed seizure x5 seconds CT brain (-); Blood sugar 640- transferred to [facility] Neuro- MRI brain; B vision loss likely 2/2 hyperglycemic refraction error H- bipolar Dx- diabetic retinopathy, mild-moderate diabetic macular edema R eye Past Medical History: Diagnosis Date Arrhythmia Arthritis Bipolar disorder ([facility]) Bronchitis, chronic ([facility]) Chronic constipation Chronic kidney disease Depression Diabetes mellitus type 2, controlled ([facility]) 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 Encourage patient or legal containers sales representative to report early pain and [...] per policy 9. Teach patient or legal containers sales representative interventions for comforting Outcome: Progressing [...] at the bedside 7. Instruct patient/ patient containers sales representative about use of safety devices 8. Include patient/ patient containers sales representative in decisions related to safety Outcome: Progressing Note: Evaluation of progress towards goal: Patient remains injury-free amid hospitalization due to proper safety precautions. Rafael Chavira RN [facility] 12-05-2024 Plan of care note Problem: [...] Score of =/> 25 or indicated by [facility] Assessment Goal: Patient should be free from fall Description: Interventions: 1. [place] to environment 2. Hourly rounds addressing the [...] non-skid footwear 11. Teach patient and patient containers sales representative to maintain environment for safety [...] (cane, walker) within reach 19. Request patient containers sales representative bring adaptive equipment/mobility aids from home or obtain and provide as needed 20. Consult pharmacy regarding effects of med's affecting mobility, cognition, and alternatives 21. Obtain physician order for PT if risk factors associated with mobility are present 22. Obtain physician order for OT as appropriate 23. Utilize diversional activities 24. Educate patient and patient containers sales representative how to maintain a safe environment during visitation times (notify nurse prior to leaving bedside) 25. Consider appropriateness of medical or non-medical bill processor 26. Set up voiding schedule as appropriate (every 2 hours) Outcome: Progressing Note: Evaluation of progress towards goal: Bed locked and lowered to lowest setting. Call greco within reach, personal items within reach. Problem: Pain Goal: Patient goal is pain score less than 4, able to rest, and participant in treatment plan as appropriate Description: INTERVENTIONS: 1. Encourage patient or legal containers sales representative to report early pain and [...] per policy 9. Teach patient or legal containers sales representative interventions for comforting Outcome: Progressing [...] at the bedside 7. Instruct patient/ patient containers sales representative about use of safety devices 8. Include patient/ patient containers sales representative in decisions related to safety [...] hygiene technique. 7. Identify and instruct patient/patient containers sales representative in use of appropriate isolation precautions for identified infection/symptoms. 8. Provide and discuss with patient/patient containers sales representative on educational MDRO sheet. 9. Encourage and monitor nutritional status daily and consult plater apprentice if indicated. 10. Implement neutropenic guidelines as needed. Outcome: Progressing Note: Evaluation of progress towards goal: Patient has no current signs and symptoms of infection; monitoring vitals and labs Problem: Knowledge Deficit Goal: Patient/patient containers sales representative demonstrates understanding of disease process, treatment plan, medications, and discharge instructions Description: INTERVENTIONS 1. Complete learning assessment and assess knowledge base 2. Provide teaching at level of understanding 3. Provide teaching via preferred learning method(s) Outcome: Progressing Note: Evaluation of progress towards goal: Patient verbalizes understanding of treatment plan, medications, and discharge plans. [facility] 12-04-2024 Progress note Formatting of t his note is different from the original. DISCHARGE PLANNING NOTE Dec 07, 2024 10:00 AM (Arrive by 9:45 AM) New Patient with Lindsay Johnson, NEURO PSYCH SALES SPECIALIST-SENIOR COGNOS DEVELOPER [facility] ([facility]) [address] [place] [address] [address] [facility] [phone] [facility] 12-04-2024 History of Present illness Narrative Images from the original note were not included. [facility] Hospital[facility] Progress Note Subjective SUBJECTIVE No [...] vision loss secondary to hyperglycemia Diabetic retinopathy Pgoc-hq-grsikbct diabetic macular edema right eye Seizure-like episode [...] Elda Aguirre MD documented in this encounter [facility] 12-04-2024 Progress note Formatting of t [...] Provided Yes [employer]Port List Provided Home Care Cell Tender met with patient, introduced self, and explained role. Patient educated on safe discharge plan. 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 Discharge plan home with [facility]. PCP: No primary care provider on file. Pharmacy:[facility] PCP and pharmacy confirmed with patient. CN [...] list given for home care agencies. Tasked [facility] to assist with finding patient new [...] progress towards goal: safe discharge to [facility] Home Care and daughter, friend support Will continue to follow as plan of care develops. CN discussed benefits and importance of medication compliance and follow ups. Please feel free to reach out for any discharge planning questions. - Ezra Will RN 12/04/24 12:42 PM T [facility] 12-04-2024 Plan of care note Problem: Glucose [...] blood glucose improved but still elevated T [facility] 12-04-2024 Plan of care note Problem: Glucose [...] discharge planning process 5. Communicate referral to tobacco educator as appropriate 6. Communicate referral to plater apprentice as appropriate 7. Collaborate with case management/social welfare research worker for discharge needs Outcome: Progressing Note: Evaluation of progress towards goal: [facility] 12-03-2024 Progress note Formatting of t his note might be different from the original. [facility] Transfer Accept Note I have received a request for transfer of primary service for this patient from the neurology team. Clinical handoff report was given. [facility] will assume care as primary team of this patient starting 12/04/24 at 7:00 am. LIANNE MCCORMICK MD 12/03/2024 [facility] 12-03-2024 Consult note Formatting of th [...] using 2.5% Anibal-Synephrine and 1% Mydriacyl OU [place] sharp margins OU Cup/Disc Ratio 0.3 [...] with additional background diabetic retinopathy and possible ccad-yk-qnniglao diabetic macular edema. The patient's profound visual complaints most likely was secondary to hyperglycemic refractive error. With control of the patient's diabetes vision is suspected to returned to baseline level in 2-4 weeks. The vision has been advised to follow-up with retina specialist Dr. Jonas Casey at [facility] and also to see regular entertainment production professional for refractive care.. Thanks Esvin Ibrahim MD, FACS. [facility] 12-03-2024 Consult note Formatting of th is [...] using 2.5% Anibal-Synephrine and 1% Mydriacyl OU [place] sharp margins OU Cup/Disc Ratio 0.3 [...] with additional background diabetic retinopathy and possible btlb-yv-uucqnyxu diabetic macular edema. The patient's profound visual complaints most likely was secondary to hyperglycemic refractive error. With control of the patient's diabetes vision is suspected to returned to baseline level in 2-4 weeks. The vision has been advised to follow-up with retina specialist Dr. Jonas Casey at [facility] and also to see regular entertainment production professional for refractive care.. Thanks Esvin Ibrahim MD, FACS. Associated Order(s): IP CONSULT TO INTERNAL MEDICINE Images from the original note were not included. [facility] Hospitalists Consultation 12/03/2024 Patient Name: Addie Jean [...] History: Diagnosis Date Arrhythmia Arthritis Bipolar disorder ([facility]) Bronchitis, chronic ([facility]) Chronic constipation Chronic kidney disease Depression Diabetes mellitus type 2, controlled ([facility]) Meningitis Sudden loss of vision 12/02/2024 Past [...] Intake/Output Summary (Last 24 hours) at 12/03/2024 0932 Last data filed at 12/03/2024 0831 Gross [...] She is interested in following up with [facility]. If she is able to [...] to 7 pm documented in this encounter [facility] 12-03-2024 Plan of care note Problem: [...] discharge planning process 5. Communicate referral to tobacco educator as appropriate 6. Communicate referral to plater apprentice as appropriate 7. Collaborate with case management/social welfare research worker for discharge needs Note: Evaluation of progress towards goal: pt request to meet social welfare research worker [facility] 12-03-2024 Consult note Associated Order (s): IP CONSULT TO INTERNAL MEDICINE Images from the original note were not included. [facility] Consultation 12/03/2024 Patient Name: Addie [...] History: Diagnosis Date Arrhythmia Arthritis Bipolar disorder ([facility]) Bronchitis, chronic ([facility]) Chronic constipation Chronic kidney disease Depression Diabetes mellitus type 2, controlled ([facility]) Meningitis Sudden loss of vision 12/02/2024 Past [...] of vision 12/03/2024 Hyperosmolar hyperglycemic state (HHS) ([facility]) 12/03/2024 SOLO (acute kidney injury) 12/03/2024 Resolved [...] She is interested in following up with [facility]ology. If she is able to [...] Available from 7 am to 7 pm 24 [facility] 12-03-2024 History and physical note Images from the original note were not included. [facility] Neurology General Neurology Primary Admission Note Primary Neurology service: [phone] Chief Complaint: Vision loss History: Addie Jean [...] hyperglycemic at [facility]. Patient was transferred to [facility] for further management. Upon arrival to [facility], patient notes that her vision is [...] History: Diagnosis Date Arrhythmia Arthritis Bipolar disorder ([facility]) Bronchitis, chronic ([facility]) Chronic constipation Chronic kidney disease Depression Diabetes mellitus type 2, controlled ([facility]) Meningitis Family History: No family history on [...] Strain: Low Risk (10/01/2024) Received from [facility] Overall Financial Resource Strain (CARDIA) Difficulty of Paying Living Expenses: Not hard at all Food Insecurity: No Food Insecurity (10/01/2024) Received from [facility] Hunger Vital Sign Within the past 12 months, you worried that your food would run out before you got the money to buy more.: Never true Ran Out of Food in the Last Year: Not on file Transportation Needs: No Transportation Needs (10/01/2024) Received from [facility] Transportation In the past 12 months, has lack of transportation kept you from medical appointments or from getting medications?: No Lack of Transportation (Non-Medical): Not on file Physical Activity: Not on file Stress: Not on file Social Connections: Not on file Interpersonal Safety: Unknown (10/01/2024) Received from [facility] Humiliation, Afraid, Rape, and Kick questionnaire Fear of Current or Ex-Partner: No Emotionally Abused: Not on file Physically Abused: Not on file Sexually Abused: Not on file Housing Instability: Low Risk (10/01/2024) Received from [facility] Housing Stability Vital Sign In the last 12 months, was there a time when you were not able to pay the mortgage or rent on time?: No Number of Times Moved in the Last Year: Not on file At any time in the past 12 months, were you homeless or living in a longterm (including now)?: No Medications: None Allergies: Allergies [...] light touch throughout. Cerebellar: Able to do qsfgkb-kt-zpaw bilaterally; normal coordination Gait and station: Deferred [...] BMP. Hanna Mari MD PGY3 Neurology [facility] Staffed with: (Dr Vargas) This patient is being followed by the Neurology Resident service. Contact attending directly during these hours: Thursday to 7:30-8:30 A.M. to Thursday 12-1:00 p.m. Primary Neurology service: [phone] Consult neurology service: [phone] Resident Stroke Service: [phone] If the patient belongs to the Stroke FRIDA service please contact the Stroke FRIDA directly. Cosigned by Vanessa Vargas MD at 12/03/2024 6:02 PM EDT Associated attestation - Vanessa Vargas MD - 12/03/2024 6:02 PM EDT I reviewed the resident's note and discussed the case with the resident. This specific service will not be billed. Additional findings/notes: case was discussed over the phone [email or web address] Work Phone: 12-03-2024 History and physical note Images from the original note were not included. [facility] Neurology General Neurology Primary Admission Note Primary Neurology service: [phone] Chief Complaint: Vision loss History: Addie Jean [...] hyperglycemic at [facility]. Patient was transferred to [facility] for further management. Upon arrival to [facility], patient notes that her vision is [...] History: Diagnosis Date Arrhythmia Arthritis Bipolar disorder ([facility]) Bronchitis, chronic ([facility]) Chronic constipation Chronic kidney disease Depression Diabetes mellitus type 2, controlled ([facility]) Meningitis Family History: No family history on [...] Strain: Low Risk (10/01/2024) Received from [facility] Overall Financial Resource Strain (CARDIA) Difficulty of Paying Living Expenses: Not hard at all Food Insecurity: No Food Insecurity (10/01/2024) Received from [facility] Hunger Vital Sign Within the past 12 months, you worried that your food would run out before you got the money to buy more.: Never true Ran Out of Food in the Last Year: Not on file Transportation Needs: No Transportation Needs (10/01/2024) Received from [facility] Transportation In the past 12 months, has lack of transportation kept you from medical appointments or from getting medications?: No Lack of Transportation (Non-Medical): Not on file Physical Activity: Not on file Stress: Not on file Social Connections: Not on file Interpersonal Safety: Unknown (10/01/2024) Received from [facility] Humiliation, Afraid, Rape, and Kick questionnaire Fear of Current or Ex-Partner: No Emotionally Abused: Not on file Physically Abused: Not on file Sexually Abused: Not on file Housing Instability: Low Risk (10/01/2024) Received from [facility] Housing Stability Vital Sign In the last 12 months, was there a time when you were not able to pay the mortgage or rent on time?: No Number of Times Moved in the Last Year: Not on file At any time in the past 12 months, were you homeless or living in a longterm (including now)?: No Medications: None Allergies: Allergies [...] light touch throughout. Cerebellar: Able to do sztycl-sm-quvk bilaterally; normal coordination Gait and station: Deferred [...] BMP. Hanna Mari MD PGY3 Neurology [facility] Staffed with: (Dr Vargas) This patient is being followed by the Neurology Resident service. Contact attending directly during these hours: Thursday to 7:30-8:30 A.M. to Thursday 12-1:00 p.m. Primary Neurology service: [phone] Consult neurology service: [phone] Resident Stroke Service: [phone] If the patient belongs to the Stroke FRIDA service please contact the Stroke RFIDA directly. Cosigned by Vanessa Vargas MD at 12/03/2024 6:02 PM EDT Associated attestation - Vanessa Vargas MD - 12/03/2024 6:02 PM EDT I reviewed the resident's note and discussed the case with the resident. This specific service will not be billed. Additional findings/notes: case was discussed over the phone documented in this encounter [facility] 11-21-2024 Telephone encounter Note Adelina 10/24/24 [facility] 11-21-2024 Miscellaneous Notes Adelina 10/24/24 documented in this encounter [facility] 11-04-2024 History of Present illness Narrative Opened for pre-charting. Patient not seen today, no show. documented in this encounter [facility] 10-11-2024 Telephone encounter Note Pt informed of rx sent. Pharmacy updated to verify new rx and verbalized understanding. Will fill for pt today. [facility] 10-11-2024 Miscellaneous Notes Pt informed of rx [...] a prior auth for water therapy in [place], [place]. [place] is where pt lives now. pt will call back with information of faclity. Adelina 09/23/24 documented in this encounter [facility] 10-10-2024 Telephone encounter Note Patient was given 14 day supply on 09/23/24 pending UDS results (in media, consistent) so she would have been due to fill on 10/07/24. This RX is written to be filled on 10/23/24, ALSO - it is also only written for 14 day supply. Please correct and resend. [facility] 10-06-2024 Telephone encounter Note Pt is asking for a prior auth for water therapy in [place] This is where pt lives now. pt will call back with information of faclity. [facility] 10-06-2024 Telephone encounter Note Adelina 09/23/24 [facility] 10-05-2024 Note RACQUEL notified that grace reis is ready for discharge. Dtr cannot transport her home. Pt called [place] [employer] transportation line and speaker call made to schedule transport home. Address corrected in [facility] system to [facility]. Updates sent to [facility] providers to seek out accepting provider with new home address. Awaiting accepting provider. SW added information to AVS that we will call patient once we receive responses from [facility]. 5pm. Patient missed UBER. She tried to reach out to insurance again but placed on hold. cold working supervisor agreed to call [facility] for patient to get her home. Th10/06/24 SW has not rec'd any accepting [facility] out of 22 referrals. SW attempted to call patient -VM was full unable to leave a message. SW attempted to call dtr-no answer. No home health has been located for this patient. [facility] 10-05-2024 Note Physical Therapy Physical Therapy Treatment Patient Name: Addie Jean Baptiste : 1975 Today's Date: 10/05/2024 Patient Active Problem List Diagnosis NSTEMI (non-ST elevated myocardial infarction) ([facility]) Type 2 diabetes mellitus with circulatory disorder, with long-term current use of insulin ([facility]) Sick sinus syndrome ([facility]) Acute renal failure with acute tubular necrosis superimposed on stage 3a chronic kidney disease ([facility]) Seizure ([facility]) Bipolar 1 disorder ([facility]) Acquired hypothyroidism Class 3 severe obesity due to excess calories with serious comorbidity and body mass index (BMI) of 50.0 to 59.9 in adult Plantar ulcer of left foot, limited to breakdown of skin ([facility]) Hypocalcemia Start Time: 1348 Stop Time: 1407 [...] to enter home. Pt becomes frustrated with staff writer's questions re: PLOF, home safety, assistance needs [...] 1: [employer] (more content not included)... [facility] 10-05-2024 Note Attestation signed by Leonardo [...] Ortiz DO Admit Date: 10/01/2024 Hospital Day: 4 [...] edema, morbid obesity who was taken to [facility] ED as she was noted to [...] were noted to be elevated 180-->166 pg/mL. [facility] Cardiology was consulted from [place] [facility] and she is transferred here for [...] aspirin, 81 m (more content not included)... [facility] 10-05-2024 Note Hospital Medicine Discharge Summary [...] left foot, limited to breakdown of skin ([facility]) Hypocalcemia Admission Diagnosis: NSTEMI (non-ST elevated myocardial infarction) ([facility]) [I21.4] Hospital course: Addie Jean Baptiste is [...] edema, morbid obesity who was taken to [facility] ED as she was noted to [...] 180-->166 pg/mL. NSTEMI (non-ST elevated myocardial infarction) ([facility]) - cards consulted - likely demand ischemia [...] disorder, with long-term current use of insulin ([facility]) - HgbA1C 10.7 - in insulin pump at home - may resume medications at discharge Sick sinus syndrome ([facility]) - s/p pacemaker - interrogation ordered- did review interrogation report with cardiology. Report is stable. No issues seen on report Acute renal failure with acute tubular necrosis superimposed on stage 3a chronic kidney disease ([facility]) -Cr improved today to 1.26 - renal US negative - neph consulted during the stay. Patient did improve. Recommend to follow up outpatient Seizure ([facility]) - neuro consulted at admission - Continue LEV 1g BID at least until outpt neuro follow up - Patient will need referral to [facility] neurology (for epileptologist) at discharge. - Neuro will sign off. Bipolar 1 disorder ([facility]) - continue celexa 40mg daily - continue [...] left foot, limited to breakdown of skin ([facility]) - vascular surgery consulted No plans for debridement at this time. No antibiotics necessary. Upon inspection today this is not ulcer but rather a dry callus, no open tissue present. Recommend to keep callus clean and dry and follow up outpatient follow up with her district court judge for routine callus paring. No need for paring this admission. Arter (more content not included)... [facility] 10-04-2024 Note SW requested with gudelia alvarado consult today for [facility]. Patient has hx of a provider that served [employer] that drove the [employer] . She said it was [place] something . Referral made to [facility]. Patient states she doesn't have current svs [...] for donated walker for discharge if available. [facility] 10-04-2024 Note Occupational Therapy Occupational Therapy Evaluation Patient Name: Addie Jean Baptiste : 1975 Today's Date: 10/04/2024 Start Time: 1345 Stop Time: 1413 Time Calculation (min): 28 min OT Evaluation Time Entry OT Evaluation (Moderate) Time Entry: 28 General Subjective: Patient stated she was recently evicted from her home in [facility]. Patient is now living with her sister in [place]. Patient agreed to get up to the [...] List Diagnosis NSTEMI (non-ST elevated myocardial infarction) ([facility]) Type 2 diabetes mellitus with circulatory disorder, with long-term current use of insulin ([facility]) Sick sinus syndrome ([facility]) Acute renal failure with acute tubular necrosis superimposed on stage 3a chronic kidney disease ([facility]) Seizure ([facility]) Bipolar 1 disorder ([facility]) Acquired hypothyroidism Class 3 severe obesity due to excess calories with serious comorbidity and body mass index (BMI) of 50.0 to 59.9 in adult Plantar ulcer of left foot, limited to breakdown of skin ([facility]) Hypocalcemia Past Medical History: Diagnosis Date Anxiety Bipolar 1 disorder (CMS/HCC) Cardiac arrest ([facility]) 2019 Chronic back pain Chronic kidney disease Coronary artery disease Depression Diabetes mellitus (CMS/HCC) Hypertension Insomnia Pacemaker Schizoaffective disorder (CMS/HCC) Seizures ([facility]) Stroke ([facility]) Past Surgical History: Procedure Laterality Date CARDIAC [...] Level of Function Prior Function Level of Mills: Independent with ADLs and functional transfers, Needs [...] but patient perfo (more content not included)... [facility] 10-04-2024 Note Physical Therapy Physical Therapy [...] Pt is 49 y.o female presenting to [facility] ED following tonic-clonic seizure and episodes of [...] List Diagnosis NSTEMI (non-ST elevated myocardial infarction) ([facility]) Type 2 diabetes mellitus with circulatory disorder, with long-term current use of insulin ([facility]) Sick sinus syndrome ([facility]) Acute renal failure with acute tubular necrosis [...] Pacemaker Schizoaffective disorder (CMS/HCC) Seizures (CMS/HCC) Stroke ([facility]) Past Surgical History: Procedure Laterality Date CARDIAC [...] House Lives With: Family (Daughter, son, and [id number]) Home Living Comments: Pt states she was living with her son and DIL in [place] however the landlord kicked them out within the past week so they moved to [place] into her daughter's Home Layout: Two level, [...] Level of Function Prior Function Level of Mills: Independent with ADLs and functional transfers, Needs [...] Breaks: 2 Act (more content not included)... [facility] 10-04-2024 Note - s/p pacemaker - interrogation ordered- asked RN to call rep [facility] 10-04-2024 Note - HgbA1C 10.7 - in insulin pump at home - Glu 96-211 - currently lantus 12 units bid - currently ISS [facility] 10-04-2024 Note - continue celexa 40 mg daily - continue pamelor 25mg nightly - continue seroquel 400mg nightly [facility] 10-04-2024 Note - encourage weight l oss - may benefit from a GLP-1 inhibitor, defer to PCP [facility] 10-04-2024 Note - cards consulted - likely demand ischemia in setting of acute kidney injury, and seizure episode and elevated lactate. [employer] device interrogation No current indication for heparin as her troponin is trending downward and patient is asymptomatic and having epistaxis. Aspirin 81 mg daily and Toprol 50 mg. Further recommendations to follow depending on echocardiogram results. [facility] 10-04-2024 Note - neuro consulted at admission - Continue LEV 1g BID at least until outpt neuro follow up - Patient will need referral to [facility] neurology (for epileptologist) at discharge. - Recommend PT/OT. - Neuro will sign off. [facility] 10-04-2024 Note - last TSH 3.71 - cont levothyroxine 75mcg daily [facility] 10-04-2024 Note - vascular surgery c onsulted No plans for debridement at this time. No antibiotics necessary. Upon inspection today this is not ulcer but rather a dry callus, no open tissue present. Recommend to keep callus clean and dry and follow up outpatient follow up with her district court judge for routine callus paring. No need for [...] up with our service at this time [facility] 10-04-2024 Note -Cr improved today t o 1.75 - renal US negative - neph consulted [facility] 10-04-2024 Note - Ca 8.2 today - daily CBC Consult PT/OT/SEAT MENDER Will DC ene [facility] 10-04-2024 Note Hospital Medicine Daily Progress Note - 10/04/2024 12:12 PM; Room: [address] [place] [address] Admission: 10/01/2024 9:19 AM; Length of stay: 3 days THE HOSPITALIST TEAM PREFERS TO USE [employer] FOR NON-URGENT COMMUNICATION 7AM-7PM. IF I DO NOT RESPOND WITHIN 20 MINUTES OR URGENT MATTERS, PLEASE CALL THROUGH THE SUPERVISOR RESIDENTIAL. FROM 7PM-7AM, PLEASE PAGE [phone](COVR). Code Status: Full Code Barriers to Discharge: [...] edema, morbid obesity who was taken to [facility] ED as she was noted to [...] & Plan NSTEMI (non-ST elevated myocardial infarction) ([facility]) - cards consulted - likely demand ischemia in setting of acute kidney injury, and seizure episode and elevated lactate. [employer] device interrogation No current indication for heparin as her troponin is trending downward and patient is asymptomatic and having epistaxis. Aspirin 81 mg daily and Toprol 50 mg. Further recommendations to follow depending on echocardiogram results. Type 2 diabetes mellitus with circulatory disorder, with long-term current use of insulin ([facility]) - HgbA1C 10.7 - in insulin pump at home - Glu 96-211 - currently lantus 12 units bid - currently ISS Sick sinus syndrome ([facility]) - s/p pacemaker - interrogation ordered- asked RN to call rep Acute renal failure with acute tubular necrosis superimposed on stage 3a chronic kidney disease ([facility]) -Cr improved today to 1.75 - renal US negative - neph consulted Seizure ([facility]) - neuro consulted at admission - Continue LEV 1g BID at least until outpt neuro follow up - Patient will need referral to [facility] neurology (for epileptologist) at discharge. - Recommend PT/OT. - Neuro will sign off. Bipolar 1 disorder ([facility]) - continue celexa 40mg daily - continue [...] left foot, limited to breakdown of skin ([facility]) - vascular surgery consulted No plans for debridement at th (more content not included)... [facility] 10-03-2024 Note Ca 6.6 - albumin 2.5, corrected calcium 7.4 - will give one gram of calcium [facility] 10-03-2024 Note -Cr improved today t o 1.89 - renal US negative - neph consulted [facility] 10-03-2024 Note - vascular surgery c onsulted No plans for debridement at this time. No antibiotics necessary. Upon inspection today this is not ulcer but rather a dry callus, no open tissue present. Recommend to keep callus clean and dry and follow up outpatient follow up with her district court judge for routine callus paring. No need for [...] up with our service at this time [facility] 10-03-2024 Note Attestation with edits by [...] edema, morbid obesity who was taken to [facility] ED as she was noted to [...] were noted to be elevated 180-->166 pg/mL. [facility] Cardiology was consulted from [place] ED and she is transferred here for [...] No edema. N (more content not included)... [facility] 10-03-2024 Note - neuro consulted at admission - Continue LEV 1g BID at least until outpt neuro follow up - Patient will need referral to [facility] neurology (for epileptologist) at discharge. - Recommend PT/OT. - Neuro will sign off. [facility] 10-03-2024 Note - last TSH 3.71 - cont levothyroxine 75mcg daily [facility] 10-03-2024 Note - encourage weight l oss - may benefit from a GLP-1 inhibitor, defer to PCP [facility] 10-03-2024 Note - continue celexa 40 mg daily - continue pamelor 25mg nightly - continue seroquel 400mg nightly [facility] 10-03-2024 Note - HgbA1C 10.7 - in insulin pump at home - Glu 115-413 - currently lantus 12 units bid - currently ISS - will discuss insulin dosing with pharmacy today [facility] 10-03-2024 Note - s/p pacemaker - interrogation ordered [facility] 10-03-2024 Note - cards consulted - [...] results. Cardiology team will continue to follow [facility] 10-03-2024 Note Hospital Medicine Daily Progress Note - 10/03/2024 10:32 AM; Room: [address] [place] [address] Admission: 10/01/2024 9:19 AM; Length of stay: 2 days THE HOSPITALIST TEAM PREFERS TO USE [employer] FOR NON-URGENT COMMUNICATION 7AM-7PM. IF I DO NOT RESPOND WITHIN 20 MINUTES OR URGENT MATTERS, PLEASE CALL THROUGH THE SUPERVISOR RESIDENTIAL. FROM 7PM-7AM, PLEASE PAGE [phone](COVR). Code Status: Full Code Barriers to Discharge: [...] edema, morbid obesity who was taken to [facility] ED as she was noted to [...] & Plan NSTEMI (non-ST elevated myocardial infarction) ([facility]) - cards consulted - likely demand ischemia [...] disorder, with long-term current use of insulin ([facility]) - HgbA1C 10.7 - in insulin pump at home - Glu 115-413 - currently lantus 12 units bid - currently ISS - will discuss insulin dosing with pharmacy today Sick sinus syndrome ([facility]) - s/p pacemaker - interrogation ordered Acute renal failure with acute tubular necrosis superimposed on stage 3a chronic kidney disease ([facility]) -Cr improved today to 1.89 - renal US negative - neph consulted Seizure ([facility]) - neuro consulted at admission - Continue LEV 1g BID at least until outpt neuro follow up - Patient will need referral to [facility] neurology (for epileptologist) at discharge. - Recommend PT/OT. - Neuro will sign off. Bipolar 1 disorder ([facility]) - continue celexa 40mg daily - continue [...] left foot, limited to breakdown of skin ([facility]) - vascular surgery consulted No plans for debridement at this time. No antibiotics necessary. Upon inspection tod (more content not included)... [facility] 10-03-2024 Note Attestation signed by Kelley Liang RD at 10/03/2024 2:16 PM I attest that I was present for nutrition assessment and agree with inclusion internship's nutrition interventions and goals for pt. Adult Nutrition Assessment: Name: Addie Jean Baptiste Date: 1975 Date of Visit: 10/03/24 Admission Dx: NSTEMI (non-ST elevated myocardial infarction) ([facility]) [I21.4] Reason for assessment: high risk (L DFU) Information obtained from: patient, medical record, and nursing Past Medical History: Diagnosis Date Anxiety Bipolar 1 disorder ([facility]) Cardiac arrest ([facility]) 2019 Chronic back pain Chronic kidney disease Coronary artery disease Depression Diabetes mellitus ([facility]) Hypertension Insomnia Pacemaker Schizoaffective disorder ([facility]) [place] St[place] Current Medications: aspirin, 81 mg, oral, Daily [...] ate all of her breakfast this morning (persian muffin, wick, juice/coffee). Pt states she has had diabetes (more content not included)... [facility] 10-03-2024 Note [facility] Vascular Surgery DAILY PROGRESS NOTE Subjective Patient [...] Agent, Strain, 3D, Bubble Study [facility] Heart Station [address] [place] [address] [phone] (fax) Echocardiogram-[facility] Name: ADDIE ORGAN Study Date: 10/01/2024 03:03 PM B/P: 127 mmHg/111 mmHg HR: Date of : 1975 Location: [facility] Height: 62 in. Age: 49 year(s) Patient [...] mmHg TR V (more content not included)... [facility] 10-02-2024 Note - last TSH 3.71 - cont levothyroxine 75mcg daily [facility] 10-02-2024 Note - encourage weight l oss - may benefit from a GLP-1 inhibitor, defer to PCP [facility] 10-02-2024 Note - Cr 3.0 today - neph consulted [facility] 10-02-2024 Note - HgbA1C 10.7 - in insulin pump at home - Glu 134-249 - currently lantus 12 units bid - currently ISS [facility] 10-02-2024 Note - cards consulted - [...] results. Cardiology team will continue to follow [facility] 10-02-2024 Note - s/p pacemaker - interrogation ordered [facility] 10-02-2024 Note - continue celexa 40 mg daily - continue pamelor 25mg nightly - continue seroquel 400mg nightly [facility] 10-02-2024 Note - vascular surgery c onsulted No plans for debridement at this time No antibiotics necessary Wash wound daily with soap and water, keep dry Will obtain arterial studies to evaluate for peripheral vascular disease [facility] 10-02-2024 Note - neuro consulted at admission - Continue LEV 1g BID at least until outpt neuro follow up - Patient will need referral to [facility] neurology (for epileptologist) at discharge. - Recommend PT/OT. - Neuro will sign off. [facility] 10-02-2024 Note Hospital Medicine Daily Progress Note - 10/02/2024 10:59 AM; Room: [address] [place] [address] Admission: 10/01/2024 9:19 AM; Length of stay: 1 days THE HOSPITALIST TEAM PREFERS TO USE [employer] FOR NON-URGENT COMMUNICATION 7AM-7PM. IF I DO NOT RESPOND WITHIN 20 MINUTES OR URGENT MATTERS, PLEASE CALL THROUGH THE SUPERVISOR RESIDENTIAL. FROM 7PM-7AM, PLEASE PAGE [phone](COVR). Code Status: Full Code Barriers to Discharge: [...] edema, morbid obesity who was taken to [facility] ED as she was noted to [...] & Plan NSTEMI (non-ST elevated myocardial infarction) ([facility] - cards consulted - likely demand ischemia [...] disorder, with long-term current use of insulin ([facility] - HgbA1C 10.7 - in insulin pump at home - Glu 134-249 - currently lantus 12 units bid - currently ISS Sick sinus syndrome ([facility] - s/p pacemaker - interrogation ordered Acute renal failure with acute tubular necrosis superimposed on stage 3a chronic kidney disease ([facility]) - Cr 3.0 today - neph consulted Seizure ([facility] - neuro consulted at admission - Continue LEV 1g BID at least until outpt neuro follow up - Patient will need referral to [facility] neurology (for epileptologist) at discharge. - Recommend PT/OT. - Neuro will sign off. Bipolar 1 disorder ([facility] - continue celexa 40mg daily - continue [...] left foot, limited to breakdown of skin ([facility]) - vascular surgery consulted No plans for debridement at this time No antibiotics necessary Wash wound daily with soap and water, keep dry Will obtain arterial studies to evalua (more content not included)... [facility] 10-02-2024 Note Attestation with edits by Juan C Crabtree MD at 10/02/2024 4:35 PM I personally saw and examined the patient on the same date of service as resident/fellow Dr Ho. I discussed the findings and therapeutic plan with the resident/fellow Dr Ho. I agree with the documentation, except for any edits/updates below. Teaching Physician's Revisions: None Juan C Crabtree MD, [facility] Cardiology Progress Note Subjective Subjective: Patient was seen and examined, reported doing ok, she still complaining of generalized pain over her body, no other complaints. Remained afebrile and hemodynamically stable.Nurse reports she was placed on O2 during the night due to drop in O2 sat while sleeping Objective Current Facility-Administered Medications: aspirin chewable tablet 81 mg, 81 mg, oral, Daily, Malika Cantu MD, 81 mg at 10/01/24 1220 atorvastatin [...] acute distress. Appearanc (more content not included)... [facility] 10-01-2024 Note [facility] General Neurology Consultation Initial Note [...] seizure, consult for [facility] management. Addie Jean Bapitste is an 49 y.o. female with a [...] were noted to be elevated 180-->166 pg/mL. [facility] Cardiology was consulted from [facility] and she is transferred here for further management. A summary from her [facility] neurologist on 08/2023 noted: 2008 - [...] History: Diagnosis Date Anxiety Bipolar 1 disorder ([facility]) Cardiac arrest [place] 2019 Chronic back pain Chronic kidney disease Coronary artery disease Depression Diabetes mellitus ([facility]) Hypertension Insomnia Pacemaker Schizoaffective disorder ([facility] Se[place] St[place] PAST SURGICAL HISTORY: Past Surgical History: Procedure [...] and Rash O (more content not included)... [facility] 10-01-2024 Note Hospital Medicine History and Physical 10/01/2024 9:31 AM THE HOSPITALIST TEAM PREFERS TO USE [employer] CHAT FOR NON-URGENT COMMUNICATION 7AM-7PM. IF I DO NOT RESPOND WITHIN 20 MINUTES OR URGENT MATTERS, PLEASE CALL THROUGH THE SUPERVISOR RESIDENTIAL. FROM 7PM-7AM, PLEASE PAGE [phone](COVR). Chief Complaint Intermittent anginal episodes, elevated troponin [...] edema, morbid obesity who was taken to [facility] ED as she was noted to [...] were noted to be elevated 180-->166 pg/mL. [facility] Cardiology was consulted from [place] [facility] and she is transferred here for [...] problems, no radha (more content not included)... [facility] 09-29-2024 History of Present illness Narrative Faxed rx e-stim 09/28/24 documented in this encounter [facility] 09-27-2024 Note error AUTHENTICATED BY JIM VELEZ ON 09/27/2024 21:37:15 [facility] 09-26-2024 Note Erroneous encounter, patient not seen for office visit on this date. See documentation regarding seizure episodes in office lobby and transportation to ED. AUTHENTICATED BY STEPHANY PELAYO, ON 09/26/2024 08:41:02 [facility] 09-23-2024 Instructions Jim Velez DO - 09/23/2024 11:13 AM EDT Continue Percocet 5-325 one tablet tid prn x 2 weeks until review of UDS Continue Lyrica 75mg one capsule twice daily Continue tizanidine 4mg two tablets nightly as needed Follow up with Podiatry for further evaluation of left ankle and foot pain Complete urine drug screen Please call Refill Line or send Mosaic Mallhart Refill Request to Pain Management office 7 days before each fill date, every month. Order physical therapy. Will complete MRI lumbar spine without contrast after physical therapy is completed Reorder TENS unit documented in this encounter [facility] 09-23-2024 History of Present illness Narrative General Pain Index Questionnaire- [facility] Date: 09/23/24 Patient Name: ___Cathy [...] Totally unable to function Score ____50 (60) [facility] Interventional Pain Management Office Note [...] referral, TENS unit, and follow-up with new district court judge. -Addie has scheduled an appointment with a new district court judge, Dr. Sun, on the , as she [...] LEFT HALLUX; Surgeon: Shameka Castillo DPM; Location: [facility] Main OR; [...] total) by mouth daily . Dexcom G6 Administrative And Program Specialist Misc Use as directed for continuous glucose [...] OPIOIDS Jim Velez DO Interventional Pain Management [facility] documented in this encounter [facility] 09-23-2024 Note [facility] Interventional Pain Management Office Note [...] referral, TENS unit, and follow-up with new district court judge. -Addie has scheduled an appointment with a new district court judge, Dr. Sun, on the , as she [...] Diagnosis Date Anx (more content not included)... [facility] 09-22-2024 Note Addie Jean Baptiste is a 49- year-old female patient of Stephany Pelayo PA-C who is presenting for follow-up visit. She does present in a wheelchair. I was walking a patient of mine out to the lobby when her specimen transporter flagged me down saying that she was losing consciousness in the lobby. When I approached patient she had her eyes open but was unresponsive. At that time I did call for assistance. Within about a minute patient did start talking to me and said that she has not been feeling good and has been dizzy and shaking. The specimen transporter with her said that he is not seeing her unresponsive like she was until just now. Staff members were able to start taking blood pressure at 2:18 PM with blood pressure at 139/85, heart rate 89 and oxygen was reading approximately 76% but patient has dark nail costa rican on. EMS was initiated at this time. [...] when EMS arrived. Patient was transferred to [facility] and taken to ED. During each episode, [...] AUTHENTICATED BY KARON BEARD, ON 09/22/2024 16:04:57 [facility] 09-22-2024 History of Present illness Narrative Addie Jean Baptiste is a 49-year-old female patient of Stephany Pelayo PA-C who is presenting for follow-up visit. She does present in a wheelchair. I was walking a patient of mine out to the lobby when her specimen transporter flagged me down saying that she was losing consciousness in the lobby. When I approached patient she had her eyes open but was unresponsive. At that time I did call for assistance. Within about a minute patient did start talking to me and said that she has not been feeling good and has been dizzy and shaking. The specimen transporter with her said that he is not seeing her unresponsive like she was until just now. Staff members were able to start taking blood pressure at 2:18 PM with blood pressure at 139/85, heart rate 89 and oxygen was reading approximately 76% but patient has dark nail costa rican on. EMS was initiated at this time. [...] when EMS arrived. Patient was transferred to [facility] and taken to ED. During each episode, [...] EMS took over. documented in this encounter [facility] 09-22-2024 Telephone encounter Note Pt had appt today but was sent to ED by pcp due to seizure in her office. She is out of Percocet. She didn't call for refill due to appt today. Appt rescheduled for tomorrow morning. [facility] 09-22-2024 Miscellaneous Notes Pt had appt today but was sent to ED by pcp due to seizure in her office. She is out of Percocet. She didn't call for refill due to appt today. Appt rescheduled for tomorrow morning. documented in this encounter [facility] 08-24-2024 History of Present illness Narrative Called pt to reschedule frida , unable to lvm documented in this encounter [facility] 08-04-2024 History of Present illness Narrative Pulse ox order faxed to [facility]. documented in this encounter [facility] 08-02-2024 Instructions Rafaela Castillo MA - 08/02/2024 3:12 PM EDT Call Neurology for your refills at [phone] Call [facility] to check on referrals at [phone] documented in this encounter [facility] 08-02-2024 Note [facility] PHYS[facility] INTERNAL MEDICINE [facility] [place] [address] Subjective Patient ID: Addie Jean Baptiste is [...] She has been receiving telehealth consultations from [facility], which she reports as beneficial. Asking for [...] scan, and is interested in seeing a cheese specialist. She reports difficulty in ambulating due to foot pain, which is exacerbated by the formation of new blisters with each attempt to walk. She has an upcoming appointment with her district court judge on 08/12/2024 for multiple diabetic foot wounds and likely planning for surgery. She has not been performing any wound care at home. She reports the presence of blisters under both breasts, which are non-pruritic but cause a burning sensation. She is concerned about the potential development of ulcers.She has been using a wheelchair for mobility and continues to see a pipe bowl paint trimmer. She has an upcoming appointment with an digital technician at [facility]. Not routinely checking BG. She [...] LEFT HALLUX; Surgeon: Shameka Castillo DPM; Location: [facility] Main OR; [...] (two) times a day . Dexcom G6 Administrative And Program Specialist Misc Use as directed for continuous glucose [...] directed . ame (more content not included)... [facility] 08-02-2024 History of Present illness Narrative [facility] INTERNAL MEDICINE [address] [place] [address] Subjective Patient ID: Addie Jean Baptiste is [...] She has been receiving telehealth consultations from [facility], which she reports as beneficial. Asking for [...] scan, and is interested in seeing a cheese specialist. She reports difficulty in ambulating due to foot pain, which is exacerbated by the formation of new blisters with each attempt to walk. She has an upcoming appointment with her district court judge on 08/12/2024 for multiple diabetic foot wounds and likely planning for surgery. She has not been performing any wound care at home. She reports the presence of blisters under both breasts, which are non-pruritic but cause a burning sensation. She is concerned about the potential development of ulcers.She has been using a wheelchair for mobility and continues to see a pipe bowl paint trimmer. She has an upcoming appointment with an digital technician at [facility]. Not routinely checking BG. She [...] LEFT HALLUX; Surgeon: Shameka Castillo DPM; Location: [facility] Main OR; [...] (two) times a day . Dexcom G6 Administrative And Program Specialist Misc Use as directed for continuous glucose [...] With worsening anxiety/panic attacks. Continue follow-up with [facility]. Continue current medications as prescribed. Discharged from [facility] due to no-shows. 2. Chronic Pain [...] supposed to be establishing with an external offshore diver for evaluation. 18. Candidiasis Continue nystatin powder [...] syndrome Diabetic ulcer of left great toe ([facility]) Type 2 diabetes mellitus with diabetic polyneuropathy, with long-term current use of insulin ([facility]) - Hemoglobin A1c; Future - Hemoglobin A1c [...] Chronic obstructive pulmonary disease, unspecified COPD type ([facility]) - albuterol (PROVENTIL) 2.5 mg /3 mL [...] Stephany Pelayo PA-C documented in this encounter [facility] 07-21-2024 History of Present illness Narrative Shower chair order, ins card and OV note faxed to [facility]. documented in this encounter [facility] 07-15-2024 Note [facility] PHYS[facility]IA [facility] INTERNAL MEDICINE [address] [place] [address] Subjective Patient ID: Addie Jean Baptiste is [...] her foot next week with podiatry in [place] for diabetic foot ulcer. She has been [...] She has requested referrals to a neurologist, global sourcing manager, and digital technician at [facility]. She has a history of [...] LEFT HALLUX; Surgeon: Shameka Castillo DPM; Location: [facility] Main OR; [...] (two) times a day . Dexcom G6 Administrative And Program Specialist Misc Use as directed for continuous glucose [...] total) by mouth (more content not included)... [facility] 07-15-2024 History of Present illness Narrative [facility] INTERNAL MEDICINE [address] [place] [address]. [place] [address] Subjective Patient ID: Addie Jean Baptiste is a 49 y.o. female here for Chief Complaint Patient presents with Acute Visit [facility] for shower chair After discussing the use [...] her foot next week with podiatry in [place] for diabetic foot ulcer. She has been [...] She has requested referrals to a neurologist, global sourcing manager, and digital technician at [facility]. She has a history of [...] LEFT HALLUX; Surgeon: Shameka Castillo DPM; Location: [facility] Main OR; [...] (two) times a day . Dexcom G6 Administrative And Program Specialist Misc Use as directed for continuous glucose [...] 60 tablet 2 naloxone (NARCAN) 4 mg/actuation [place] Administer 1 spray into one nostril for [...] Stephany Pelayo PA-C documented in this encounter [facility] 07-14-2024 Telephone encounter Note Percocet can remain at BID dosing for now. She can discuss this with Dr Velez in July [facility] 07-14-2024 Miscellaneous Notes Percocet can remain at [...] normally. Noted slightly slurred speech. Encounter in [facility] dated today with PCP addressing seizure. Pt called to check on rx request. She states that her district court judge was supposed to call our office to [...] She verbalized understanding. documented in this encounter [facility] 07-14-2024 Telephone encounter Note Pt lvm asking [...] normally. Noted slightly slurred speech. Encounter in [facility] dated today with PCP addressing seizure. [facility] 07-13-2024 Telephone encounter Note Pt called to check on rx request. She states that her district court judge was supposed to call our office to [...] more than a year. She verbalized understanding. [facility] 07-05-2024 History of Present illness Narrative Images [...] History: Diagnosis Date Diabetes mellitus (CMS/HCC) Hypertension (CMS/[facility]) Medications: Current Outpatient Medications: amoxicillin-clavulanate (Augmentin) 875-125 [...] , Rfl: ergocalciferol (Vitamin D2) 1.25 MG (71645 UT) capsule, Take 1 capsule by mouth [...] Resource Strain: Medium Risk (01/13/2024) Received from [facility] Overall Financial Resource Strain (CARDIA) Difficulty of Paying Living Expenses: Somewhat hard Food Insecurity: No Food Insecurity (04/27/2024) Received from [facility] Hunger Vital Sign Worried About Running Out of Food in the Last Year: Never true Ran Out of Food in the Last Year: Never true Transportation Needs: No Transportation Needs (04/27/2024) Received from [facility] PRAPARE - Transportation Lack of Transportation (Medical): No Lack of Transportation (Non-Medical): No Physical Activity: Not on file Stress: Not on file Social Connections: Not on file Intimate Partner Violence: Not At Risk (04/27/2024) Received from [facility] Humiliation, Afraid, Rape, and Kick questionnaire Fear of Current or Ex-Partner: No Emotionally Abused: No Physically Abused: No Sexually Abused: No Housing Stability: Low Risk (04/27/2024) Received from [facility] Housing Stability Vital Sign Unable to Pay [...] noted mild venous stasis disease noted Neuro: Orient-Oniel 5.07 monofilament absent Vibratory sensation diminished Musculoskeletal: [...] procedure. LUPE Capellan documented in this encounter [facility] 06-07-2024 History of Present illness Narrative Confirmation received. Pending scanning. Received fax from [employer] for incontinence supplies. Forms completed, signed and faxed. Waiting for confirmation. documented in this encounter [facility] 05-31-2024 History of Present illness Narrative error documented in this encounter [facility] 05-27-2024 Telephone encounter Note Pt is scheduled for appt with [facility] on 06/08/24. [facility] 05-27-2024 Miscellaneous Notes Pt is scheduled for appt with [facility] on 06/08/24. ----- Message from Arcelia Whyte sent at 05/27/2024 1:23 PM EST ----- Regarding: Calling back with updated information Contact: Patient Patient called in [facility] and then call back with that information. Patient advised she is now scheduled for 06/08/24 at 1:20 and is requesting that her QUEtiapine (SEROQUEL) 400 MG tablet () be filled. Patient states she was not aware that the office closed early today but needs the fill as soon as possible. Requesting a call back at [phone]. Thanks documented in this encounter [facility] 05-27-2024 Telephone encounter Note ----- Message from Arcelia Whyte sent at 05/27/2024 1:23 PM EST ----- Regarding: Calling back with updated information Contact: Patient Patient called in [facility] was suppose to call her [facility] and make an appointment and then call back with that information. Patient advised she is now scheduled for 06/08/24 at 1:20 and is requesting that her QUEtiapine (SEROQUEL) 400 MG tablet () be filled. Patient states she was not aware that the office closed early today but needs the fill as soon as possible. Requesting a call back at [phone]. Thanks [facility] 05-13-2024 Instructions Mihai Elizalde CNP - 05/13/2024 [...] in 3 months documented in this encounter [facility] 05-13-2024 Note [facility] Interventional Pain Management Office Note Patient Name: Addie Jean Baptiste Referring Physician: No ref. provider found Date of : 1975 PCP: Stephany Pelayo PA-C Date of Service: 05/13/24 History of Present Illness Last office visit: 02/02/24 Dr Agustin MENENDEZ Narrative: Chief complaint: Lower back pain and left great toe The patient, Addei, presents with severe left foot pain due [...] - She mentions a previous hospitalization at [facility], where a foot amputation was considered [...] AMPUTATION TOE METATARSOPHA (more content not included)... [facility] 05-13-2024 History of Present illness Narrative [facility] Interventional Pain Management Office Note [...] - She mentions a previous hospitalization at [facility], where a foot amputation was considered [...] LEFT HALLUX; Surgeon: Shameka Castillo DPM; Location: [facility] Main OR; [...] total) by mouth daily . Dexcom G6 Administrative And Program Specialist Misc Use as directed for continuous glucose [...] route daily . naloxone (NARCAN) 4 mg/actuation [place] Administer 1 spray into one nostril for [...] screen Please call Refill Line or send Mosaic Mallhart Refill Request to Pain Management office 7 [...] OPIOIDS Mihai Elizalde CNP Interventional Pain Management [facility] documented in this encounter [facility] 04-29-2024 Progress note Formatting of t his note might be different from the original. Spoke with Dr. Floyd Castillo, No dressing needed for patients foot. Leave open to air , Any drainage recommend neosporin and band-aid [facility] 04-29-2024 Miscellaneous Notes Spoke with Dr. Floyd [...] Outcome: Partially Met documented in this encounter [facility] 04-29-2024 Plan of care note Problem: Actual [...] Absence of physical injury Outcome: Partially Met [facility] 04-29-2024 Note [facility] 04-29-2024 History of Present illness Narrative [facility] NOTE ASSESSMENT: [...] injection 60 Units 60 Units Subcutaneous Nightly [place], SENIOR COGNOS DEVELOPER 60 Units at 04/28/242107 insulin lispro (AdmeLOG,HumaLOG) [...] injection 0.4 mg 0.4 mg Intravenous PRN Harshda Rizzo MD nicotine (NICODERM CQ) 14 mg/24 [...] daily . 90 tablet 1 Dexcom G6 Administrative And Program Specialist Misc Use as directed for continuous glucose [...] 100 each 2 naloxone (NARCAN) 4 mg/actuation [place] Administer 1 spray into one nostril for [...] Reason for exam: Patient arrives with EMS ([facility]). She ambulated off of EMS cot with [...] signs and symptoms: Patient arrives with EMS ([facility]). She ambulated off of EMS cot with [...] EST I agree with assessment and plan. [facility] PROGRESS NOTE Assessment and Plan Addie Jean Baptiste is a 48 y.o. female patient of Stephany Pelayo PA-C with history of T2DM, HTN, bipolar disorder, and chronic back pain presented to [facility] on 01/12/2024 with left toe wound. Postop [...] normal coloration Psych: normal mood and affect [facility] PROGRESS NOTE Assessment and Plan Addie Jean Baptiste is a 48 y.o. female patient of Stephany Pelayo PA-C with history of T2DM, HTN, bipolar disorder, and chronic back pain presented to [facility] on 01/12/2024 with left toe wound. Postop [...] mood and affect documented in this encounter [facility] 04-29-2024 Hospital course Narrative Images from the original note were not included. [facility] DISCHARGE SUMMARY -- [facility] Addie Jean Baptiste Admitted: 04/26/2024 Discharge Date: 04/29/24 PCP Handoff Recommended Outpatient Testing Follow up with podiatry Results Pending At Discharge NONE Clinical Summary Addie Jean Baptiste is a 48 y.o. female patient of Stephany Pelayo PA-C with history of T2DM, HTN, bipolar disorder, and chronic back pain presented to [facility] on 01/12/2024 with left toe wound. Postop [...] daily . Quantity: 90 tablet Dexcom G6 Administrative And Program Specialist Misc Generic drug: blood-glucose meter,continuous Use as [...] . Quantity: 100 each naloxone 4 mg/actuation [place] Commonly known as: NARCAN Administer 1 spray [...] 04/29/24, 8:26 AM documented in this encounter [facility] 04-28-2024 Telephone encounter Note Pt in hospital, infection in toe amputation site. Due for refill on 04/22/24. [facility] 04-28-2024 Miscellaneous Notes Pt in hospital, infection in toe amputation site. Due for refill on 04/22/24. documented in this encounter [facility] 04-28-[address] [facility] 04-28-2024 Plan of care note Problem: [...] Absence of pressure injury Outcome: Partially Met [place] 04-28-2024 Note [facility] 04-27-2024 Consult note Associated Order (s): IP CONSULT TO PODIATRY Images from the original note were not included. [facility] H&P/CONSULT ASSESSMENT: Diabetes [...] the stitches. Betadine dry sterile dressing change control manager the amputation site. -- OR Plans: None - ABX: cefazolin based on recent surgical cultures, per primary - DSG: Betadine dry sterile dressing change control manager the amputation site. - WBS: Heel weightbearing [...] PMH listed below who WAS ADMITTED TO [facility] ON 04/26/2024 [...] LEFT HALLUX; Surgeon: Shameka Castillo DPM; Location: [facility] Main OR; [...] Units 45 Units Subcutaneous Nightly Lucina Preciado, SENIOR COGNOS DEVELOPER insulin lispro (AdmeLOG,HumaLOG) injection 0-15 Units 0-15 [...] daily . 90 tablet 1 Dexcom G6 Administrative And Program Specialist Misc Use as directed for continuous glucose [...] 100 each 2 naloxone (NARCAN) 4 mg/actuation [place] Administer 1 spray into one nostril for [...] Reason for exam: Patient arrives with EMS ([facility]). She ambulated off of EMS cot with [...] signs and symptoms: Patient arrives with EMS ([facility]). She ambulated off of EMS cot with [...] Castillo DPM at 04/28/2024 8:17 AM EST [facility] 04-27-2024 Consult note Associated Order (s): IP CONSULT TO PODIATRY Images from the original note were not included. [facility] H&P/CONSULT ASSESSMENT: Diabetes [...] the stitches. Betadine dry sterile dressing change control manager the amputation site. -- OR Plans: None - ABX: cefazolin based on recent surgical cultures, per primary - DSG: Betadine dry sterile dressing change control manager the amputation site. - WBS: Heel weightbearing [...] was provided. Thank you for the consult! vAila Rajan PA-C, Foot and Ankle Surgery 04/27/2024 HISTORY: Addie Jean Baptiste is a 49 y.o. YEAR OLD female with PMH listed below who WAS ADMITTED TO [facility] ON 04/26/2024 [...] LEFT HALLUX; Surgeon: Shameka Castillo DPM; Location: [facility] Main OR; [...] Units 45 Units Subcutaneous Nightly Lucina Preciado, SENIOR COGNOS DEVELOPER insulin lispro (AdmeLOG,HumaLOG) injection 0-15 Units 0-15 [...] daily . 90 tablet 1 Dexcom G6 Administrative And Program Specialist Misc Use as directed for continuous glucose [...] 100 each 2 naloxone (NARCAN) 4 mg/actuation [place] Administer 1 spray into one nostril for [...] Reason for exam: Patient arrives with EMS ([facility]). She ambulated off of EMS cot with [...] signs and symptoms: Patient arrives with EMS ([facility]). She ambulated off of EMS cot with [...] 8:17 AM EST documented in this encounter [facility] 04-27-2024 Note [facility] ostal 04-27-2024 Plan of care note Problem: [...] Absence of pressure injury Outcome: Partially Met [facility] 04-26-2024 History and physical note [facility] [place] [place] HISTORY AND PHYSICAL -- [facility] Patient Name: Addie Jean Baptiste : 1975 MR #: [id number] Admit Date: 04/26/2024 Physicians: Stephany Pelayo PA-C (Family); No ref. provider found (Referring) Addie Jean Baptiste is a 48 y.o. female patient of Stephany Pelayo PA-C with history of T2DM, HTN, bipolar disorder, and chronic back pain presented to [facility] on 01/12/2024 with left toe wound. Assessment [...] LEFT HALLUX; Surgeon: Shameka Castillo DPM; Location: [facility] Main OR; [...] 04/26/24 11:47 PM Medications 04/26/24 11:47 PM [facility] 04-26-2024 History and physical note [facility] [place] [place] HISTORY AND PHYSICAL -- [facility] Patient Name: Addie Jean Baptiste : 1975 MR #: [id number] Admit Date: 04/26/2024 Physicians: Stephany Pelayo PA-C (Family); No ref. provider found (Referring) Addie Jean Baptiste is a 48 y.o. female patient of Stephany Pelayo PA-C with history of T2DM, HTN, bipolar disorder, and chronic back pain presented to [facility] on 01/12/2024 with left toe wound. Assessment [...] LEFT HALLUX; Surgeon: Shameka Castillo DPM; Location: [facility] Main OR; [...] 04/26/24 11:47 PM documented in this encounter [facility] 04-26-2024 Physician Emergency department Note [facility] EMERGENCY DEPARTMENT ED Provider Note: Name: Addie [...] History: Diagnosis Date Anxiety Bipolar 1 disorder ([facility]) Chronic back pain Chronic kidney disease, stage 3 unspecified ([facility]) Coronary artery disease Depression Diabetes mellitus ([facility]) Hypertension MRSA (methicillin resistant Staphylococcus aureus) Pacemaker Seizures ([facility]) Stroke ([facility]) Patient Active Problem List Diagnosis Hypertension S/P placement of cardiac pacemaker Type 2 diabetes mellitus with diabetic polyneuropathy, with long-term current use of insulin ([facility]) Bipolar 1 disorder ([facility]) Seizures ([facility]) Chronic chest pain GERD (gastroesophageal reflux disease) Hypothyroidism Diabetic peripheral neuropathy ([facility]) Insomnia Generalized weakness Muscle spasms of both lower extremities Bowel incontinence Vitamin B12 deficiency Vitamin D deficiency Cigarette nicotine dependence COPD (chronic obstructive pulmonary disease) ([facility]) Left-sided weakness History of stroke Visual loss, left eye Family history of pulmonary fibrosis Family history of dementia Urinary incontinence Chronic headaches Hypercholesterolemia CKD (chronic kidney disease) Retinal hemorrhage Diabetic ulcer of left great toe ([facility]) Hypertensive urgency Chronic pain syndrome Chronic pain of both knees Abdominal wound dehiscence Candidiasis Abnormal pigmentation of skin Toe osteomyelitis ([facility]) Postoperative infection PSurg: Past Surgical History: Procedure Laterality Date CHOLECYSTECTOMY FOOT SURGERY HYSTERECTOMY ORTHOPEDIC SURGERY left foot surgery PACEMAKER INSERTION NM AMPUTATION TOE METATARSOPHALANGEAL JOINT Left 04/01/2024 Procedure: AMPUTATION LEFT HALLUX; Surgeon: Shameka Castillo DPM; Location: [facility] Main OR; [...] total) by mouth daily . Dexcom G6 Administrative And Program Specialist Misc Use as directed for continuous glucose [...] route daily . naloxone (NARCAN) 4 mg/actuation [place] Administer 1 spray into one nostril for [...] All other components within normal limits Narrative: [facility] Laboratory Services has implemented the eGFR calculation [...] Procedure Abnormality Status --------- ------ CBC Auto Differential[[id number]] Abnormal Final result Please view results for [...] call required?: No Jacoby Dooley MD 04/26/24 [address] [place] 04-26-2024 Emergency department Note [facility] EMERGENCY DEPARTMENT ED Provider Note: Name: Addie [...] History: Diagnosis Date Anxiety Bipolar 1 disorder ([facility]) Chronic back pain Chronic kidney disease, stage 3 unspecified ([facility]) Coronary artery disease Depression Diabetes mellitus ([facility]) Hypertension MRSA (methicillin resistant Staphylococcus aureus) Pacemaker Seizures ([facility]) Stroke ([facility]) Patient Active Problem List Diagnosis Hypertension S/P placement of cardiac pacemaker Type 2 diabetes mellitus with diabetic polyneuropathy, with long-term current use of insulin ([facility]) Bipolar 1 disorder ([facility]) Seizures ([facility]) Chronic chest pain GERD (gastroesophageal reflux disease) Hypothyroidism Diabetic peripheral neuropathy ([facility]) Insomnia Generalized weakness Muscle spasms of both lower extremities Bowel incontinence Vitamin B12 deficiency Vitamin D deficiency Cigarette nicotine dependence COPD (chronic obstructive pulmonary disease) ([facility]) Left-sided weakness History of stroke Visual loss, left eye Family history of pulmonary fibrosis Family history of dementia Urinary incontinence Chronic headaches Hypercholesterolemia CKD (chronic kidney disease) Retinal hemorrhage Diabetic ulcer of left great toe ([facility]) Hypertensive urgency Chronic pain syndrome Chronic pain of both knees Abdominal wound dehiscence Candidiasis Abnormal pigmentation of skin Toe osteomyelitis ([facility]) Postoperative infection PSurg: Past Surgical History: Procedure Laterality Date CHOLECYSTECTOMY FOOT SURGERY HYSTERECTOMY ORTHOPEDIC SURGERY left foot surgery PACEMAKER INSERTION NM AMPUTATION TOE METATARSOPHALANGEAL JOINT Left 04/01/2024 Procedure: AMPUTATION LEFT HALLUX; Surgeon: Shameka Castillo DPM; Location: [facility] Main OR; [...] total) by mouth daily . Dexcom G6 Administrative And Program Specialist Misc Use as directed for continuous glucose [...] mouth daily . miscellaneous medical supply [facility] 1 each by Miscellaneous route daily . naloxone (NARCAN) 4 mg/actuation [place] Administer 1 spray into one nostril for [...] All other components within normal limits Narrative: [facility] Laboratory Services has implemented the eGFR calculation [...] Procedure Abnormality Status --------- ------ CBC Auto Differential[[id number]] Abnormal Final result Please view results for [...] call required?: No Jacoby Dooley MD 04/26/24 5367 Pt reports not taking her BP medication today Patient reports 10/10 pain and states she took her last percocet yesterday. Patient also reports that she does take medication for high blood pressure. Patient arrives with EMS ([facility]). She ambulated off of EMS cot with [...] arrival: Comments: 29 documented in this encounter [facility] 04-26-2024 Emergency department Note Pt reports not taking her BP medication today [facility] 04-26-2024 Emergency department Note Patient reports 10/10 pain and states she took her last percocet yesterday. Patient also reports that she does take medication for high blood pressure. [facility] 04-26-2024 Emergency department Triage note Patient arrives with EMS ([facility]). She ambulated off of EMS cot with [...] She reports redness, pain and clear drainage. [facility] 04-26-2024 Emergency department Note Bed: 18 Expected date: Expected time: Means of arrival: Comments: 29 [facility] 04-14-2024 Note Addended by: Jyoti ELIZALDE on: 04/14/2024 11:03 AM Modules accepted: Orders [facility] 04-14-2024 Miscellaneous Notes Addended by: MIHAI ELIZALDE [...] 1 tablet left. documented in this encounter [facility] 04-12-2024 Telephone encounter Note Already sent remaining 15 tabs [facility] 04-12-2024 Miscellaneous Notes Already sent remaining 15 tabs Pt had to fill 15 tablets and pay oop due to insurance would not cover. Jean is trying to resubmit to insurance with updated info. But will need new rx for remaining 45 tablets. She only received 1 1/2 day supply and only has 1 tablet left. documented in this encounter [facility] 04-12-2024 Telephone encounter Note Pt had to fill 15 tablets and pay oop due to insurance would not cover. Jean is trying to resubmit to insurance with updated info. But will need new rx for remaining 45 tablets. She only received 1 1/2 day supply and only has 1 tablet left. [facility] 04-06-2024 History of Present illness Narrative PA request from [employer] for Omnipod faxed [employer] prescription request form complete for Omnipod / faxed documented in this encounter [facility] 04-04-2024 Hospital course Narrative Images from the original note were not included. [facility] [place] DISCHARGE SUMMARY Addie Jean Baptiste Admitted: 03/24/2024 [...] disorder, and chronic back pain presented to [facility] on 03/25/2024 with left toe wound. Sepsis [...] dos eot 35U qHs Diabetic diet Consulted wellness educator: Resume insulin pump at discharge, verified [...] daily . Quantity: 90 tablet Dexcom G6 Administrative And Program Specialist Misc Generic drug: blood-glucose meter,continuous Use as [...] 04/04/24, 12:23 PM documented in this encounter [facility] 04-04-2024 [facility] History of Present illness Narrative [facility] PROGRESS NOTE ASSESSMENT [...] mg 40 mg Subcutaneous BID Lowell Roberts [facility],PharmD 40 mg at 04/04/24 0856 hydrALAZINE [...] mg 0.1 mg Intravenous PRN Floyd Rubin [facility],PharmD 0.1 mg at 03/28/24 0520 And [...] Verio . 100 strip 5 Dexcom G6 Administrative And Program Specialist Misc Use as directed for continuous glucose [...] Abnormal ECG Confirmed by Inessa Rao MD ([id number]) on 03/25/2024 8:01:09 AM XR Toe(s) Left [...] with the assessment and plan as documented. [facility] [place] [place] PROGRESS NOTE Assessment and Plan Addie Jean Baptiste is a 48 y.o. female patient of Stephany Pelayo PA-C with history of T2DM, HTN, bipolar disorder, and chronic back pain presented to [facility] on 03/25/2024 with left toe wound. Sepsis [...] dos eot 35U qHs Diabetic diet Consulted wellness educator: Resume insulin pump at discharge, verified [...] 04/04 Patient requires continued hospitalization due to: Service Technician request Discharge Location:home Quality Measures DVT Prophylaxis: [...] normal coloration Psych: normal mood and affect [facility] [place] [place] PROGRESS NOTE Assessment and Plan Addie Jean Baptiste is a 48 y.o. female patient of Stephany Pelayo PA-C with history of T2DM, HTN, bipolar disorder, and chronic back pain presented to [facility] on 03/25/2024 with left toe wound. Sepsis [...] night Blood sugar improving Diabetic diet Consult wellness educator: Hypertension Hyperlipidemia Continue to hold SHAJI [...] 04/04 Patient requires continued hospitalization due to: Service Technician request Discharge Location:home Quality Measures DVT Prophylaxis: [...] and affect [facility] PROGRESS NOTE ASSESSMENT AND PLAN: Diabetes [...] Jean Baptiste Admit Date: [id number] MR #: [id number] : 1975 Perpetual Assessment: Addie Jean Baptiste [...] 9.1 PHOSPHORUS mg/dL 2.8 2.7 3.0 Urinalysis [facility] [place] [place] PROGRESS NOTE Assessment and Plan Addie Organ is a 48 y.o. female patient of Stephany Pelayo PA-C with history of T2DM, HTN, bipolar disorder, and chronic back pain presented to [facility] on 03/25/2024 with left toe wound. Sepsis [...] night Blood sugar improving Diabetic diet Consult wellness educator: Hypertension Hyperlipidemia Continue to hold SHAJI [...] Patient states she is requested amputation per district court judge Objective BP 138/82 (BP Location: Left arm, [...] pain Nutrition Related Allergies/Intolerances: latex Cultural or Voodoo Dietary Needs :No Cultural or Voodoo Dietary needs noted Patient/family comments:Deferred: Pt sleeping [...] Use) [place] [address] [place] Office [phone] Images from the original note were not included. [facility] PROGRESS NOTE ASSESSMENT [...] mg 0.1 mg Intravenous PRN Floyd Rubin [facility],PharmD 0.1 mg at 03/28/24 0520 And naloxone (NARCAN) injection 0.4 mg 0.4 mg Intravenous PRN Floyd Rubin [facility],PharmD 0.4 mg at 03/26/24 2300 nicotine [...] Verio . 100 strip 5 Dexcom G6 Administrative And Program Specialist [facility] Use as directed for [...] Abnormal ECG Confirmed by Inessa Rao MD ([id number]) on 03/25/2024 8:01:09 AM XR Toe(s) Left [...] coordination of care and direct patient management. [facility] [place] PROGRESS NOTE Assessment and Plan Addie Organ is a 48 y.o. female patient of Stephany Pelayo PA-C with history of T2DM, HTN, bipolar disorder, and chronic back pain presented to [facility] on 03/25/2024 with left toe wound. Right [...] night Blood sugar improving Diabetic diet Consult wellness educator: Hypertension Hyperlipidemia Continue to hold metoprolol [...] Addie Organ Admit Date: [id number] MR #: [id number] : 1975 Perpetual Assessment: Addie Jean Baptiste [...] UR /hpf 5 BACTERIA, UR /hpf Rare* [facility] [place] [place] PROGRESS NOTE Assessment and Plan Addie Organ is a 48 y.o. female patient of Stephany Pelayo PA-C with history of T2DM, HTN, bipolar disorder, and chronic back pain presented to [facility] on 03/25/2024 with left toe wound. Sepsis [...] 30 units at night Diabetic diet Consult wellness educator: Hypertension Hyperlipidemia Continue to hold metoprolol [...] Jean Baptiste Admit Date: [id number] MR #: [id number] : 1975 Perpetual Assessment: Addie Jean Baptiste [...] not included. [facility] PROGRESS NOTE ASSESSMENT [...] Merrick Almanza MD 15 Units at 03/30/24 0720 [email or web address] [...] Verio . 100 strip 5 Dexcom G6 Administrative And Program Specialist Misc Use as directed for continuous glucose [...] Abnormal ECG Confirmed by Inessa Rao MD ([id number]) on 03/25/2024 8:01:09 AM XR Toe(s) Left [...] Jean Baptiste Admit Date: [id number] MR #: [id number] : 1975 Perpetual Assessment: Addie Jean Baptiste [...] UR /hpf 5 BACTERIA, UR /hpf Rare* [facility] [place] [place] PROGRESS NOTE Assessment and Plan Addie Organ is a 48 y.o. female patient of Stephany Pelayo PA-C with history of T2DM, HTN, bipolar disorder, and chronic back pain presented to [facility] on 03/25/2024 with left toe wound. Sepsis [...] 20u at night today Diabetic diet Consult wellness educator: Hypertension Hyperlipidemia Continue to hold metoprolol [...] normal coloration Psych: normal mood and affect [facility] [place] [place] PROGRESS NOTE Assessment and Plan Addie Jean Baptiste is a 48 y.o. female patient of Stephany Pelayo PA-C with history of T2DM, HTN, bipolar disorder, and chronic back pain presented to [facility] on 03/25/2024 with left toe wound. Hypotension [...] to continue insulin pump Diabetic diet Consult wellness educator: Admits that she has not been [...] Jean Baptiste Admit Date: [id number] MR #: [id number] : 1975 Perpetual Assessment: Addie Jean Baptiste [...] /hpf Rare* [facility] PROGRESS NOTE ASSESSMENT [...] mg 30 mg Subcutaneous Daily Radha Castillo, [facility],PharmD insulin lispro (AdmeLOG,HumaLOG) injection 0-15 Units [...] Verio . 100 strip 5 Dexcom G6 Administrative And Program Specialist [place] Use as directed for continuous glucose [...] Abnormal ECG Confirmed by Inessa Rao MD ([id number]) on 03/25/2024 8:01:09 AM XR Toe(s) Left [...] with the assessment and plan as documented. [facility] [place] [place] PROGRESS NOTE Assessment and Plan Addie Jean Baptiste is a 48 y.o. female patient of Stephany Pelayo PA-C with history of T2DM, HTN, bipolar disorder, and chronic back pain presented to [facility] on 03/25/2024 with left toe wound. Hypotension, [...] to continue insulin pump Diabetic diet Consult wellness educator: Admits that she has not been [...] services and availability. Rev. Fawn Hinton MDiv, [facility] Staff Icer Hand [facility] Patients Response to Pastoral Care: Appeared to be well-engaged Planning for Future Visits: PRN 03/27/24 1040 Visit Background Visit With Patient Visit By Staff Icer Hand Visit Progression Introduction Visit Requested By Icer Hand Initiated Visit Source Icer Hand Initiated Visit Type Inpatient;Rounding Visit Circumstances and Events Routine Visit Visit Length (minutes) 30 Patient's Response to Pastoral Care Appeared to be well-engaged Visit Planning PRN Spiritual Assessment Assessed during this visit Voodoo Assessment Not assessed during this visit Family assessment provided? Not assessed during this visit Patient Spiritual Needs Assessment Sources of Connection Daughter;Granddaughter;Grandson;So n Belief Practices Not Discussed Coping Mechanisms Family Support Spiritual Diagnosis Disconnected from Sources of Support Facilitated Interventions Active Listening;Explained Role of the Icer Hand;Goal Setting Spiritual/Emotional Outcomes Appears less anxious;Appears more [...] Denies needs. [facility] IN[facility] PROGRESS NOTE ASSESSMENT AND PLAN: Diabetes [...] 8.1* ALT U/L 16 AST U/L 16 [facility] [place] [place] PROGRESS NOTE Assessment and Plan Addie Jean Baptiste is a 48 y.o. female patient of Stephany Pelayo PA-C with history of T2DM, HTN, bipolar disorder, and chronic back pain presented to [facility] on 03/25/2024 with left toe wound. Left [...] to continue insulin pump Diabetic diet Consult wellness educator: Admits that she has not been [...] (H) Pharmacist: Floyd Rubin RPh,PharmD Contact Number: [phone] Spoke with MD regarding right chest port. [...] distress. Care continues. documented in this encounter [facility] 04-04-2024 Miscellaneous Notes Problem: Actual or potential [...] (48 y.o.) Date of Service: 04/01/2024 CSN: [id number] Procedure(s): AMPUTATION LEFT HALLUX IPJ Pre-Operative Diagnoses: * osteomyelitis Post-Operative Diagnoses: * Same as Pre-Op Diagnosis Surgeons and Role: * Shameka Castillo DPM - Primary Anesthesiologist: Mk [place] MD DANCING MASTER: Monique Palomares CRNA Manager Maritime: Agueda Hunt RN Scrub Person: Monique Cheatham [...] needs to be reassessed. Enrique Anthony CNP [facility] Physician Group - Infectious Diseases Office: [phone] Attempted to call report and phone was [...] Reduced pain sensation Outcome: Partially Met Notified [facility] [place]/Dr Brar that patient's BP was 71/46 with slurred speech and Blood sugar of 348. Dr Brar came to the floor and seen patient. See new orders. [facility] [place] [place] Significant Event Note Reason for Call: Hypotension [...] - admitting glucose 646 HgbA1c 9.9 Consult wellness educator Lactic acidosis LA 3.0 - 2.1 [...] Outcome: Partially Met documented in this encounter [facility] 04-03-2024 Note [facility] 04-02-2024 Note [facility] 04-01-2024 Note [facility] 04-01-2024 Note [facility] 04-01-2024 Note [facility] 03-31-2024 Note [facility] 03-31-2024 Consult note Associated Order (s): [...] medical history of Anxiety, Bipolar 1 disorder ([facility]), Chronic back pain, Chronic kidney disease, stage 3 unspecified ([facility]), Coronary artery disease, Depression, Diabetes mellitus ([facility]), Hypertension, MRSA (methicillin resistant Staphylococcus aureus), Pacemaker, Seizures ([facility]), and Stroke ([facility]). Left DFI with ?OM: podiatry following with [...] or discussed with Dr. Bean Anthony CNP [facility] [facility] - Infectious Diseases Office: [phone] Inpatient consult to Infectious Diseases Consult performed by: Enrique Anthony CNP Consult ordered by: Leticia Rajput MD Reason for consult: osteo big toe Chief Complaint: Toe pain HPI: Addie Jean Baptiste is a 48 y.o. female has a past medical history of Anxiety, Bipolar 1 disorder ([facility]), Chronic back pain, Chronic kidney disease, stage 3 unspecified ([facility]), Coronary artery disease, Depression, Diabetes mellitus ([facility]), Hypertension, MRSA (methicillin resistant Staphylococcus aureus), Pacemaker, Seizures ([facility]), and Stroke ([facility]). . She presented on 03/24/2024 with toe [...] Verio . 100 strip 5 Dexcom G6 Administrative And Program Specialist Misc Use as directed for continuous glucose [...] Patient Name: Addie Jean Baptiste MR #: [id number] : 1975 Requesting provider: hospitalist Reason for [...] sugar. One Touch Verio . Dexcom G6 Administrative And Program Specialist Misc Use as directed for continuous glucose [...] I have reviewed Progress Notes in the [facility] EHR and CareEverywhere. [x] I have interpreted/reviewed lab tests and radiography data in the [facility] EHR. [x] I have discussed the case with the primary service. [x] I have ordered appropriate tests/labs Comments: Thank you for allowing us to participate in the care of this patient. We will continue to follow. Please call if questions or concerns arise. Associated Order(s): IP CONSULT TO INSTRUCTIONAL TECHNOLOGY COACH Critical Care Consult Note Reason for Consultation: [...] times a day . 03/22/24 03/22/25 Yes Stephayn Pelayo PA-C omeprazole (PRILOSEC) 40 MG capsule [...] 12/08/23 06/05/24 Sahara Sanchez MD Dexcom G6 Administrative And Program Specialist Misc Use as directed for continuous glucose [...] further details. Associated Order(s): IP CONSULT TO CASINO RUNNER; IP CONSULT TO CASINO RUNNER Admission Dx: Reviewed H&P, Chart Review and [...] not included. [facility] ASSESSMENT AND PLAN: Diabetes T2 with neuropathy [...] y.o. YEAR OLD female WAS ADMITTED TO [facility] ON 03/24/2024 [...] Abnormal ECG Confirmed by Inessa Rao MD ([id number]) on 03/25/2024 8:01:09 AM XR Toe(s) Left [...] flush 5 mL 5 mL Intravenous PRN nAi Gonzales CNP And sodium chloride 0.9% (NS) [...] this for BASAL RATE DOCUMENTATIONS) Miscellaneous Q12H [facility] Juwan Smith MD And Subcutaneous Insulin Pump [...] mL 1,250 mg Intravenous Q24H Floyd Rubin, [facility],PharmD Medications Prior to Admission Medication Sig [...] daily . 90 tablet 1 Dexcom G6 Administrative And Program Specialist Misc Use as directed for continuous glucose [...] Shameka Castillo DPM documented in this encounter [facility] 03-31-2024 [facility]24 [facility] 03-30-2024 History of Present illness Narrative [facility] prescription request form complete for Omnipod / faxed documented in this encounter [facility] 03-30-2024 Note [facility] 03-30-2024 [...] from the original note were not included. [facility] [place] HISTORY AND PHYSICAL -- [facility] Patient Name: Addie Jean Baptiste : 1975 MR #: [id number] Admit Date: 03/24/2024 Physicians: Stephany Pelayo PA-C (Family); No ref. provider found (Referring) Addie Jean Baptiste is a 48 y.o. female patient of Stephany Pelayo PA-C with history of T2DM, HTN, bipolar disorder, and chronic back pain presented to [facility] on 03/25/2024 with left toe wound. Left [...] expedite correspondence this note was generated by [employer] voice recognition software. The voice recognition software is inherently subject to errors including those of syntax and sound-alike substitutions which may escape proofreading. If such errors are discovered, or if there are any questions or concerns regarding the recommendations/plan of care, please contact the author of the note prior to undertaking the recommendations/plan of care. documented in this encounter [facility] 03-24-2024 Emergency department Note Associated Order(s): ECG 12- Lead Images from the original note were not included. [place] [id number] NAME: Addie Jean Baptiste AGE: 48 y.o. PCP: Stephany Pelayo PA-C CSN: [id number] Chief Complaint: Toe Pain CLINICAL IMPRESSION: 1. [...] available in inpatient encounters. Please contact a computer systems hardware analyst. --- HISTORY Chief Complaint: Toe Pain History [...] total) by mouth daily . Dexcom G6 Administrative And Program Specialist Misc Use as directed for continuous glucose [...] All other components within normal limits Narrative: [facility] Laboratory Services has implemented the eGFR calculation [...] Procedure Abnormality Status --------- ------ CBC Auto Differential[[id number]] Abnormal Final result Please view results for [...] abnormal ECG and sinus tachycardia SUKI Valera, FRONT ELEVATOR OPERATOR-BC, ENP-C Emergency Department Nurse Practitioner [facility] Emergency Department (Please note that portions of [...] Ctiy medic 29 documented in this encounter [facility] 03-24-2024 Telephone encounter Note Pt called - Jean is out of Percocet. Pharmacy changed [facility] on refill request. Pt asked to let you know she is seeing district court judge on Thursday for possible surgery. [facility] 03-24-2024 Miscellaneous Notes Pt called - Jean is out of Percocet. Pharmacy [facility] on refill [facility]. Pt asked to let you know she is seeing district court judge on Thursday for possible surgery. documented in this encounter [facility] 03-22-2024 Note [facility] PHYS[facility]IA [facility] INTERNAL MEDICINE [address] [place] [address] Subjective Patient ID: Addie Jean Baptiste is [...] daily . 90 tablet 1 Dexcom G6 Administrative And Program Specialist Misc Use as directed for continuous glucose monitoring . 1 each 0 Dexcom G6 Sensor Simran Use as directed for continuous glucose monitoring change every 10 days . 3 each 11 Dexcom G6 Transmitter Simran Use as directed for continuous glucose monitoring change every 3 months . 1 each 3 glucagon (Gv (more content not included)... [facility] 03-22-2024 History of Present illness Narrative [facility] PHYSICIANS [facility] INTERNAL MEDICINE [address] [place] [id number] Subjective Patient ID: Addie Jean Baptiste is [...] daily . 90 tablet 1 Dexcom G6 Administrative And Program Specialist Misc Use as directed for continuous glucose [...] 90 tablet 1 miscellaneous medical supply [facility] 1 each by Miscellaneous [...] day . I am managing and treating [facility]'s complex chronic condition(s) serving as the focal [...] Stephany Pelayo PA-C documented in this encounter [facility] 03-08-2024 Telephone encounter Note Per med list, patient not taking Tizanadine. But she requested a refill. [facility] 03-08-2024 Miscellaneous Notes Per med list, patient not taking Tizanadine. But she requested a refill. documented in this encounter [facility] 03-01-2024 Note PROGRESS :This repor t has been cancelled. [facility] 02-11-2024 Note [facility] PH[facility] INTERNAL MEDICINE [facility] [place] [address] Patient: Addie Jean Baptiste is a 48 y.o. female. Chief Complaint Patient presents with Follow-up Check b12 level, supplies for toe Heartburn worse-can we increase med dose HPI: Patient in seen and examined in the office for her routine 3-month followup. Patient was discharged from [facility] on January 17 and subsequently saw Rafaela [...] machine and supplies to be sent to [facility]. Patient states she continues to have issues [...] daily . 30 tablet 2 Dexcom G6 Administrative And Program Specialist Misc Use as directed for continuous glucose [...] (SYNTHROID, LEVOTHROID) 75 (more content not included)... [facility] 02-08-2024 Telephone encounter Note Patient asking [...] mg total) by mouth daily. 10/07/23 Pharmacy: [facility] pharmacy Patient last seen: 10/07/23 Patient next scheduled appt: 03/01/24 [facility] 02-08-2024 Miscellaneous Notes Patient asking for refill [...] mg total) by mouth daily. 10/07/23 Pharmacy: [facility] pharmacy Patient last seen: 10/07/23 Patient next scheduled appt: 03/01/24 documented in this encounter [facility] 02-03-2024 Telephone encounter Note PA requires tablets please double check the rx I sent you please. [facility] 02-03-2024 Miscellaneous Notes PA requires tablets please double check the rx I sent you please. Rcvd call from pharmacist at [facility]. RX states to take 1 capsule 2 times a day as needed, then it says 2 tabs p.o. nightly. Qty 60. Please correct and resend. documented in this encounter [facility] 02-03-2024 Telephone encounter Note Rcvd call from pharmacist at [facility]. RX states to take 1 capsule 2 times a day as needed, then it says 2 tabs p.o. nightly. Qty 60. Please correct and resend. [facility] 02-02-2024 Instructions Jim Velez DO - 02/02/2024 [...] p.o. nightly only documented in this encounter [facility] 02-02-2024 Note [facility] Interventional Pain Management Office Note [...] - She mentions a previous hospitalization at [facility], where a foot amputation was considered [...] Pre-filled or refillabl (more content not included)... [facility] 02-02-2024 History of Present illness Narrative [facility] Interventional Pain Management Office Note [...] - She mentions a previous hospitalization at [facility], where a foot amputation was considered [...] (1,000 mcg total) by mouth daily Reasons: [facility]. Dexcom G6 Administrative And Program Specialist Misc Use as directed for continuous glucose [...] OPIOIDS Jim Velez D.O. Interventional Pain Management [facility] documented in this encounter [facility] 01-27-2024 Note HPI Addie Jean Baptiste is a 48 y.o. female Chief Complaint Patient presents with Follow-up Hosp follow up-left big toe Addie Jean Baptiste presents for hospital follow-up. She was seen at [facility] on 01/12/24 [...] She has not been to pharmacy to citrus picker her antibiotic. Reports she is in [...] use of insulin (HCC) Bipolar 1 disorder ([facility]) Seizures ([facility]) Chronic chest pain GERD (gastroesophageal reflux disease) Hypothyroidism Diabetic peripheral neuropathy ([facility]) Insomnia Generalized weakness Diabetic ulcer of right foot associated with type 2 diabetes mellitus ([facility]) Muscle spasms of both lower extremities Bowel incontinence Vitamin B12 deficiency Vitamin D deficiency Cigarette nicotine dependence COPD (chronic obstructive pulmonary disease) ([facility]) Left-sided weakness History of stroke Visual loss, left eye Weight gain Family history of pulmonary fibrosis Family history of dementia Urinary incontinence Chronic headaches Hypercholesterolemia CKD (chronic kidney disease) Retinal hemorrhage Diabetic ulcer of left great toe ([facility]) Current Outpatient Medications: albuterol (PROVENTIL) 2.5 mg [...] (1,000 mcg total) by mouth daily Reasons: [facility] Disp: 90 tablet, Rfl: 1 Dexcom G6 Administrative And Program Specialist [facility], Use as directed for continuous glucose monitoring ., Disp: 1 each, Rfl: 0 Dexcom G6 Sensor Simran, Use as direct (more content not included)... [facility] 01-27-2024 History of Present illness Narrative MELVIN Jean Baptiste is a 48 y.o. female Chief Complaint Patient presents with Follow-up Hosp follow up-left big toe Addie Jean Baptiste presents for hospital follow-up. She was seen at [facility] on 01/12/24 [...] She has not been to pharmacy to citrus picker her antibiotic. Reports she is in [...] use of insulin (HCC) Bipolar 1 disorder ([facility]) Seizures ([facility]) Chronic chest pain GERD (gastroesophageal reflux disease) Hypothyroidism Diabetic peripheral neuropathy ([facility]) Insomnia Generalized weakness Diabetic ulcer of right [...] hemorrhage Diabetic ulcer of left great toe ([facility]) Current Outpatient Medications: albuterol (PROVENTIL) 2.5 mg [...] (1,000 mcg total) by mouth daily Reasons: [facility] Disp: 90 tablet, Rfl: 1 Dexcom G6 Administrative And Program Specialist [facility], Use as directed for [...] this upon discharge, missed last day to citrus picker from pharmacy Medications refilled as needed [...] to the patient. documented in this encounter [facility] 01-18-2024 History of Present illness Narrative AVS reviewed with patient. All requested supplies given to patient. Education on wound care provided to patient. Patient escorted to sister's car via wheelchair. All questions answered at this time. Barriers to finding accepting [facility] agency: pt's home location (not many [facility] agencies in area), insurance not widely accepted [facility] agency: Accepted or Pending Name of agency: Accepted [facility] PENDING [facility] Referrals sent to: (names of agencies) Declined: [facility] - [facility] [place] - [facility] [place] - [facility] [place] - [facility] - [facility] - staffing [facility] - no PT/OT [facility] Please be aware [facility] agencies have up to 24hours to respond. Many [facility] agencies closed on weekends, may take until Thursday to receive responses. [facility] created for the following services: yes - SN/PT/OT Verify the demographics (residential address) [address] [place], [place] [id number] What is the primary number to reach you? [phone] Who is your family physician/primary care physician? Stephany Pelayo PA-C [phone] Following physician will be: (list first name/last [...] Jean Baptiste Admit Date: [id number] MR #: [id number] : 1975 Perpetual Assessment: Addie Jean Baptiste [...] II/IIIa: Pt dos not follow with a safe deposit clerk in the OP setting. Risk factors for [...] created by dictation via voice recognition software ([employer]). The completed note was reviewed for accuracy. [...] 3:55 PM EDT I personally performed a [id number] encounter and discussed in detail with the [...] created by dictation via voice recognition software ([employer]). The completed note was reviewed for accuracy. [...] Stability: Added to AVS, Other (CHW referral) [facility] PROGRESS NOTE Assessment and Plan Addie Jean Baptiste is a 48 y.o. female patient of Stephany Pelayo PA-C with history of T2DM, HTN, bipolar disorder, and chronic back pain presented to [facility] on 01/12/2024 with left toe wound. Left [...] (1,000 mcg total) by mouth daily Reasons: [facility]. Dexcom G6 Administrative And Program Specialist Misc Use as directed for continuous glucose [...] 100 mL/hr (01/14/24 1256) subcutaneous insulin pump [facility] [place] PROGRESS NOTE Assessment and Plan Addie Jean Baptiste is a 48 y.o. female patient of Stephany Pelayo PA-C with history of T2DM, HTN, bipolar disorder, and chronic back pain presented to [facility] on 01/12/2024 with left toe wound. Left [...] (1,000 mcg total) by mouth daily Reasons: [facility]. Dexcom G6 Administrative And Program Specialist [facility] Use as directed for [...] Visit With Patient;Healthcare Provider Visit By Staff Icer Hand Visit Progression Attempt Visit Requested By Icer Hand Initiated Visit Source Icer Hand Initiated Visit Type Inpatient;Rounding Visit Circumstances and Events Routine Visit Visit Length (minutes) 5 Patient's Response to Pastoral Care Timing of Visit Not Optimal. Visit Rescheduled (Patient care needed) Visit Planning PRN Spiritual Assessment Unable to Assess during this visit Voodoo Assessment Unable to Assess during this visit Family assessment provided? Unable to asess during this visit Rev. Addie Bland MDiv. Staff Icer Hand [facility] Contact Care Management Progress Note Date: 01/15/2024 [...] Stability: Added to AVS, Other (CHW referral) [facility] PROGRESS NOTE Assessment and Plan Addie Jean Baptiste is a 48 y.o. female patient of Stephany Pelayo PA-C with history of T2DM, HTN, bipolar disorder, and chronic back pain presented to [facility] on 01/12/2024 with left toe wound. Left [...] (1,000 mcg total) by mouth daily Reasons: [facility]. Dexcom G6 Administrative And Program Specialist Misc Use as directed for continuous glucose [...] Other (CHW referral) Barriers to finding accepting [facility] agency: pt's home location (not many [facility] agencies in area), insurance not widely accepted HH agency: Accepted or Pending Name of agency: Accepted but cannot open for SOC until 01/18 [facility] Referrals sent to: (names of agencies) Declined: [facility]- [facility] [place] - [facility] [place] - [facility] [place] - [facility] - [facility]- [facility] - staffing [facility]- no [facility]/ot [facility] Please be aware [facility] agencies have up to 24hours to respond. Many [facility] agencies closed on weekends, may take until Thursday to receive responses. [facility] created for the following services: yes - SN/PT/OT Verify the demographics (residential address) [address] [place] [address] What is the primary number to reach you? [phone] Who is your family physician/primary care physician? Stephany Pelayo PA-C [phone] Do you have a caregiver and/or teachable caregiver (list relationship, name & phone #)? lives with family Estimated Discharge Date (KUNAL): 01/14 If discharge needs change, please reach out to Hub Liaison assigned on treatment team as hub is not notified of additional consults to [facility] once team is following. [facility] INPATIENT PROGRESS NOTE ASSESSMENT AND PLAN: Diabetes [...] % -- -- 6.5 Invalid input(s): [facility] [place] PROGRESS NOTE Assessment and Plan Addie Jean Baptiste is a 48 y.o. female patient of Stephany Pelayo PA-C with history of T2DM, HTN, bipolar disorder, and chronic back pain presented to [facility] on 01/12/2024 with left toe wound. Left [...] (1,000 mcg total) by mouth daily Reasons: [facility]. Dexcom G6 Administrative And Program Specialist Misc Use as directed for continuous glucose [...] More referrals sent. Barriers to finding accepting [facility] agency: pt's home location (not many [facility] agencies in area), insurance not widely accepted [facility] agency: Accepted or Pending Name of agency: PENDING [facility] - call ringing and then not going through [facility] [address] Accepted but cannot open for SOC until 01/18 [facility] Referrals sent to: (names of agencies) Declined: [facility] [place] - [facility] [place] - [facility] - [facility] - staffing Please be aware [facility] agencies have up to 24hours to respond. Many [facility] agencies closed on weekends, may take until Thursday to receive responses. [facility] created for the following services: yes - SN/PT/OT Verify the demographics (residential address) [address] [place] [id number] What is the primary number to reach you? [phone] Who is your family physician/primary care physician? Stephany Pelayo PA-C [phone] Following physician will be: (list first name/last name) Do you have a caregiver and/or teachable caregiver (list relationship, name & phone #)? lives with family Estimated Discharge Date (KUNAL): 01/14 If discharge needs change, please reach out to Hub Liaison assigned on treatment team as hub is not notified of additional consults to [facility] once team is following. Thank you. 01/13/241820 Provider Notification Reason for Communication Change in status Provider Name Judy Provider Role Hospitalist Notification Method Call Response En route Notification Time 182 [facility] [place] PROGRESS NOTE Assessment and Plan Addie Jean Baptiste is a 48 y.o. female patient of Stephany Pelayo PA-C with history of T2DM, HTN, bipolar disorder, and chronic back pain presented to [facility] on 01/12/2024 with left toe wound. Left [...] Luque: N Status: Full Code Discharge location: UKNAL: Subjective Patient seen and examined, no events [...] (1,000 mcg total) by mouth daily Reasons: [facility]. Dexcom G6 Administrative And Program Specialist Misc Use as directed for continuous glucose [...] not been spiked, are well within the car pick up driver expiration date and have been stored at room temperature (<28 days). Continue with insulin regimen as written. Please call pharmacy with any questions. Pharmacist: Yolie Knott RPh,PharmD Date: 01/12/2024 Contact Information: [phone] documented in this encounter [facility] 01-18-2024 Hospital course Narrative Images from the original note were not included. [facility] [place] DISCHARGE SUMMARY Addie Jean Baptiste Admitted: 01/12/2024 Discharge Date: 01/18/24 PCP Handoff Recommended Outpatient Testing None Results Pending At Discharge None Clinical Summary Addie Jean Baptiste is a 48 y.o. female patient of Stephany Pelayo PA-C with history of T2DM, HTN, bipolar disorder, and chronic back pain presented to [facility] on 01/12/2024 with left toe wound. Assessment [...] (1,000 mcg total) by mouth daily Reasons: [facility]. Quantity: 90 tablet Dexcom G6 Administrative And Program Specialist [facility] Generic drug: blood-glucose meter,continuous [...] ZANAFLEX Physician(s) Follow Up: Stephany Pelayo PA-C [facility] [address] [address] Follow up [facility] Address: [address] [place] [address] Servicing Counties: [facility] [phone] Shameka Castillo DPM [address] [facility] [phone] Schedule an appointment as soon as [...] 01/18/24, 11:00 AM documented in this encounter [facility] 01-18-2024 Hospital Discharge instructions Pippa Quiles RN - 01/18/2024 10:12 AM EDT Haven Pope RN - 01/13/2024 2:31 [place] [address] Call [phone] ext. [phone] for more information -Summer Reading Program provides an individualized reading program during the summer months. -The [facility] Rx Program is a unique collaborative program in [facility]. The program assists [place] residents to obtain prescriptions in an affordable manner for immediate and ongoing needs. -The Volunteer Income Tax Assistance (KASSY) is a free tax preparation service for low to moderate-income individuals and families. Federal and State tax returns can be completed and electronically filed. -The Emergency Food and Custodial Program (EFSP) is funded by the Department of [place] [employer] to assist with emergency food and longterm programs. Further information can be obtained by -The Rapid Rehousing and Homeless Prevention Programs are here to help those struggling with homelessness or who are in danger of becoming homeless. -The Payee Program assists individuals with managing their Social Security, [employer] Shel[employer], or VA benefits. This program provides free payee services to individuals. Please note, we do not take on guardianship of the individual. -The Emergency Senior Funding is a melly from the [facility] on Aging to assist those 60 and over with needs that are not met by other services in [place]. The funds are meant to help with [...] Everywhere.Caregiving: Foot and Toenail Care: General Info (Latvian)Chronic Wound: Healing: General Info (Latvian)documented in this encounter [facility] 01-17-2024 Note [facility] 01-17[facility]2024 Note [facility] 01-16-2024 Consult note Associated Order (s): IP CONSULT TO NEPHROLOGY NEPHROLOGY CONSULTATION [facility] Patient Name: Addie Jean Baptiste MR #: [id number] : 1975 Requesting physician: Hospitalist Reason for [...] II/IIIa: Pt dos not follow with a safe deposit clerk in the OP setting. Risk factors for [...] bipolar disorder, back pain who presented to [facility] with left toe wound. Per documentation, patient [...] (1,000 mcg total) by mouth daily Reasons: [facility]. Dexcom G6 Administrative And Program Specialist Misc Use as directed for continuous glucose [...] I have reviewed Progress Notes in the [facility] EHR and CareEverywhere. [x] I have interpreted/reviewed lab tests and radiography data in the [facility] EHR. [x] I have discussed the case with the primary service. [x] I have ordered appropriate tests/labs Comments: Thank you for allowing us to participate in the care of this patient. We will continue to follow. Please call if questions or concerns arise. Potential limitations of the note: Parts of this note were created by dictation via voice recognition software (Gini & Jony). The completed note was reviewed for accuracy. [...] 4:07 PM EDT I personally performed a [id number] encounter and discussed in detail with the [...] created by dictation via voice recognition software (Gini [employer] Jony). The completed note was reviewed for accuracy. However, there may be subtle errors that were not found during the review. If such errors are discovered, or if there are any questions or concerns regarding the recommendations/plan of care, please contact the author of the note prior to undertaking the recommendations/plan of care. [facility] 01-16-2024 Consult note Associated Order (s): IP CONSULT TO NEPHROLOGY NEPHROLOGY CONSULTATION [facility] Patient Name: Addie Jean Baptiste MR #: [id number] : 1975 Requesting physician: Hospitalist Reason for [...] II/IIIa: Pt dos not follow with a safe deposit clerk in the OP setting. Risk factors for [...] bipolar disorder, back pain who presented to [facility] with left toe wound. Per documentation, patient [...] (1,000 mcg total) by mouth daily Reasons: [facility]. Dexcom G6 Administrative And Program Specialist Misc Use as directed for continuous glucose [...] I have reviewed Progress Notes in the [facility] EHR and CareEverywhere. [x] I have interpreted/reviewed lab tests and radiography data in the [facility] EHR. [x] I have discussed the case with the primary service. [x] I have ordered appropriate tests/labs Comments: Thank you for allowing us to participate in the care of this patient. We will continue to follow. Please call if questions or concerns arise. Potential limitations of the note: Parts of this note were created by dictation via voice recognition software (Gini & Jony). The completed note was reviewed for accuracy. [...] 4:07 PM EDT I personally performed a [id number] encounter and discussed in detail with the [...] created by dictation via voice recognition software (Gini & Jony). The completed note was reviewed for accuracy. [...] Assessment Limitations Including: Pain, Mechanical Barriers Are desktop publishing specialist Therapy Services Needed After Discharge: Yes Intensity of desktop publishing specialist Therapy: 2-3 days per week Anticipated Duration of desktop publishing specialist Therapy: Duration 10 - 30 days PT [...] Precautions Orthotic Devices: Yes Lower Extremity: Left (Arboles shoe on) Weight Bearing Status: X LLE: Partial Wt bearing (Heel WB) General Rehab Precautions: Fall risk Balance Assessment Sitting Balance - Static: Independent Sitting Balance - Dynamic: Independent Standing Balance - Static: Minimal assist Ui Ux Developer - Standing Static: BUE Standing Balance - Dynamic: Minimal assist, 2 person Ui Ux Developer - Standing Dynamic: same computer aided design technician used for static standing tasks Bed Mobility Supine to Sit: (NT- Patient was up in chair before and After PT eval) Transfers Sit to Stand: Contact guard assist Bed to Chair: Contact guard assist Ui Ux Developer: BUE (Patient uses cane, but reports that [...] Function Receives Help From: Family Level of Mills - Transfers/Ambulation/Mobility: Independent with functional transfers, Independent with household ambulation Level of Mills - ADLs: Needs assistance Level of Mills - Homemaking: Independent Past Medical History: Diagnosis [...] motivation. The patient's home setup is a lead blender, family / caregiver support is a lead blender for return to prior level of function. The patient's education level is a lead blender, compliance is a lead blender to return to prior level of function. [...] Precautions Orthotic Devices: Yes Lower Extremity: Left (Arboles Shoe) Weight Bearing Status: X LLE: Partial [...] assist Supine to Sit: Contact guard assist Ui Ux Developer: bedrails Functional Transfers Sit to Stand: Contact guard assist Bed to Chair Transfers: Contact guard assist Stand Pivot Transfers: Contact guard assist Ui Ux Developer: (gait belt, shoe, sock) Additional Assessment Details [...] Function Receives Help From: Family Level of Mills - Transfers/Ambulation/Mobility: Independent with functional transfers Level of Mills - ADLs: Needs assistance Level of Mills - Homemaking: Independent Past Medical History: Diagnosis [...] received a Home Health Hub consult for [facility] needs. Patient's agency choice is no preference (would prefer not [facility]) Barriers to finding accepting [facility] agency: pt's home location (not many [facility] agencies in area), insurance not widely accepted [facility] agency: Accepted or Pending Name of agency: [facility] Referrals sent to: (names of agencies) Declined: [facility] [place] [facility] [place] [facility] [place] Please be aware [facility] agencies have up to 24hours to respond. Many [facility] agencies closed on weekends, may take until Thursday to receive responses. [facility] created for the following services: yes - SN/PT/OT Verify the demographics (residential address) [address] [place] [address] What is the primary number to reach you? [phone] Who is your family physician/primary care physician? Stephany Pelayo PA-C [phone] Following physician will be: (list first name/last name) Do you have a caregiver and/or teachable caregiver (list relationship, name & phone #)? lives with family Estimated Discharge Date (KUNAL): 01/14 If discharge needs change, please reach out to [facility] Liaison assigned on treatment team as the rehabilitation institute is not notified of additional consults to [facility] once team is following. Thank you. [...] needs. Pt lives with her son and [id number], they provide support. She states that she [...] agency but does not wish to have [facility]. Referral to [facility] entered. Plan A: Pt will return [...] y.o. YEAR OLD female WAS ADMITTED TO [facility] ON 01/12/2024 [...] tablet 30 mg 30 mg Oral Q12H [facility] Mk Leigh MD 30 mg at 01/12/24 2218 chlorthalidone (HYGROTON) tablet 25 mg 25 mg Oral Daily Mk Leigh MD citalopram (CELEXA) tablet 20 mg 20 mg Oral Daily Mk Leigh MD divalproex (DEPAKOTE) delayed release (DR) tablet 500 mg 500 mg Oral Q12H [facility] Mk Leigh MD hydrOXYzine (ATARAX) tablet 50 [...] (1,000 mcg total) by mouth daily Reasons: [facility]. 90 tablet 1 Dexcom G6 Administrative And Program Specialist Misc Use as directed for continuous glucose [...] Shameka Castillo DPM documented in this encounter [facility] 01-16-2024 Note [facility] 01-15-2024 Note Formatting of this [...] Absence of physical injury Outcome: Partially Met [facility] 01-15-2024 Miscellaneous Notes Problem: Actual or potential [...] Outcome: Partially Met documented in this encounter [facility] 01-15-2024 Note [facility] 01-14-2024 Note [facility] 01-14-2024 Note [facility] 01-14-2024 Consult note Formatting of th is note is different from the original. Physical Therapy PHYSICAL THERAPY EVALUATION Skilled Therapy Needs After Discharge Anticipate Resolution of Current Assessment Limitations Including: Pain, Mechanical Barriers Are desktop publishing specialist Therapy Services Needed After Discharge: Yes Intensity of desktop publishing specialist Therapy: 2-3 days per week Anticipated Duration of desktop publishing specialist Therapy: Duration 10 - 30 days PT [...] Precautions Orthotic Devices: Yes Lower Extremity: Left (Arboles shoe on) Weight Bearing Status: X LLE: Partial Wt bearing (Heel WB) General Rehab Precautions: Fall risk Balance Assessment Sitting Balance - Static: Independent Sitting Balance - Dynamic: Independent Standing Balance - Static: Minimal assist Ui Ux Developer - Standing Static: BUE Standing Balance - Dynamic: Minimal assist, 2 person Ui Ux Developer - Standing Dynamic: same computer aided design technician used for static standing tasks Bed Mobility Supine to Sit: (NT- Patient was up in chair before and After PT eval) Transfers Sit to Stand: Contact guard assist Bed to Chair: Contact guard assist Ui Ux Developer: BUE (Patient uses cane, but reports that [...] Function Receives Help From: Family Level of Mills - Transfers/Ambulation/Mobility: Independent with functional transfers, Independent with household ambulation Level of Mills - ADLs: Needs assistance Level of Mills - Homemaking: Independent Past Medical History: Diagnosis [...] hospital or completion of Physical Therapy Plan. [facility] 01-14-2024 Consult note Formatting of th is [...] motivation. The patient's home setup is a lead blender, family / caregiver support is a lead blender for return to prior level of function. The patient's education level is a lead blender, compliance is a lead blender to return to prior level of function. [...] Precautions Orthotic Devices: Yes Lower Extremity: Left (Arboles Shoe) Weight Bearing Status: X LLE: Partial [...] assist Supine to Sit: Contact guard assist Ui Ux Developer: bedrails Functional Transfers Sit to Stand: Contact guard assist Bed to Chair Transfers: Contact guard assist Stand Pivot Transfers: Contact guard assist Ui Ux Developer: (gait belt, shoe, sock) Additional Assessment Details [...] Function Receives Help From: Family Level of Mills - Transfers/Ambulation/Mobility: Independent with functional transfers Level of Mills - ADLs: Needs assistance Level of Mills - Homemaking: Independent Past Medical History: Diagnosis [...] completion of Occupational Therapy Plan of Care. [facility] 01-13-2024 Note Formatting of this n ote might be different from the original. I performed a substantive part of the MDM during the patient's E/M visit. I personally made or approved the documented management plan and acknowledge its risk of complications Management/test interpretation discussed with midlevel provider. [facility] Work Phone: 01-13-2024 Consult note Associated Order (s): IP CONSULT TO HOME HEALTH HUB 01/13/24 2:37 PM - Liaison received a Home Health Hub consult for [facility] needs. Patient's agency choice is no preference (would prefer not [place]) Barriers to finding accepting [facility] agency: pt's home location (not many [facility] agencies in area), insurance not widely accepted HHC agency: Accepted or Pending Name of agency: [facility] Referrals sent to: (names of agencies) Declined: [facility] [place] [facility] [place] [facility] [place] Please be aware [facility] agencies have up to 24hours to respond. Many [facility] agencies closed on weekends, may take until Thursday to receive responses. [facility] created for the following services: yes - SN/PT/OT Verify the demographics (residential address) [address] [facility] [address] What is the primary number to reach you? [phone] Who is your family physician/primary care physician? Stephany Pelayo PA-C [phone] Following physician will be: (list first name/last name) Do you have a caregiver and/or teachable caregiver (list relationship, name & phone #)? lives with family Estimated Discharge Date (KUNAL): 01/14 If discharge needs change, please reach out to [facility] Liaison assigned on treatment team as hub is not notified of additional consults to [facility] once team is following. Thank you. [facility] 01-13-2024 Consult note Associated Order (s): IP [...] needs. Pt lives with her son and [id number], they provide support. She states that she [...] agency but does not wish to have [facility]. Referral to Hub entered. Plan A: Pt will return home with her family, home health services to be arranged. Plan B: Will follow pt for any additional needs. Assessment and Background Information: Living Arrangements: Family members Support Systems: Family members Assistance Needed: n/a Type of Residence: Private residence Prior to Admission Home Care Services: No Current Home Equipment: (Electric scooter) [facility] 01-13-2024 Note Formatting of this n ote might be different from the original. PHYSICAL THERAPY VISIT VARIANCE NOTE Attempted to see patient at this time, but unable secondary to: Patient Unavailable (comment) (currently BHAVNA for CAT scan). Will follow up as appropriate. [facility] 01-13-2024 Note Formatting of this n ote might be different from the original. Patient has an ICD that is MRI compatible but she does not follow up with anyone for her device check. We do not have anyone to send MRI cardiology order form. [facility] 01-13-2024 Note Formatting of this n ote [...] of psychosocial functioning Outcome: Partially Met T [facility] 01-13-2024 Note [facility] 01-13-2024 Consult [...] wound bed and gema wound is red. [facility] 01-13-2024 Consult note Associated Order (s): IP [...] y.o. YEAR OLD female WAS ADMITTED TO [facility] ON 01/12/2024 [...] tablet 30 mg 30 mg Oral Q12H [facility] Mk Leigh MD 30 mg at 01/12/24 2218 chlorthalidone (HYGROTON) tablet 25 mg 25 mg Oral Daily Mk Leigh MD citalopram (CELEXA) tablet 20 mg 20 mg Oral Daily Mk Leigh MD divalproex (DEPAKOTE) delayed release (DR) tablet 500 mg 500 mg Oral Q12H [facility] Mk Leigh MD hydrOXYzine (ATARAX) tablet 50 [...] subcutaneous insulin pump Misc Miscellaneous Continuous Mk Legih MD 2 Units/hr at 01/12/24 2215 tiZANidine [...] (1,000 mcg total) by mouth daily Reasons: [facility]. 90 tablet 1 Dexcom G6 Administrative And Program Specialist Misc Use as directed for continuous glucose [...] 12/24/23. 30 tablet 0 Shameka Castillo DPM [facility] 01-12-2024 History and physical note [facility] [place] [place] HISTORY AND PHYSICAL -- [facility] Patient Name: Addie Jean Baptiste : 1975 MR #: [id number] Admit Date: 01/12/2024 Physicians: Stephany Pelayo PA-C (Family); No ref. provider found (Referring) Addie Jean Baptiste is a 48 y.o. female patient of Stephany Pelayo PA-C with history of T2DM, HTN, bipolar disorder, and chronic back pain presented to [facility] on 01/12/2024 with left toe wound. Left [...] disorder, and chronic back pain presented to [facility] on 01/12/2024 with left toe wound. Pt [...] 2, diabetic peripheral neuropathy Seizure disorder Obesity [facility] 01-12-2024 History and physical note [facility] [place] [place] HISTORY AND PHYSICAL -- [facility] Patient Name: Addie Jean Baptiste : 1975 MR #: [id number] Admit Date: 01/12/2024 Physicians: Stephany Pelayo PA-C (Family); No ref. provider found (Referring) Addie Jean Baptiste is a 48 y.o. female patient of Stephany Pelayo PA-C with history of T2DM, HTN, bipolar disorder, and chronic back pain presented to [facility] on 01/12/2024 with left toe wound. Left [...] disorder, and chronic back pain presented to [facility] on 01/12/2024 with left toe wound. Pt [...] Hennessy MD - 01/12/2024 6:33 PM EDT [facility] [place] [place] NOTE ADDENDUM I saw and examined the [...] Seizure disorder Obesity documented in this encounter [facility] 01-12-2024 Emergency department Note Hourly rounding completed. Patient updated on plan on care. Comfort measures offered, patient given water and a warm blanket. No other needs at this time. [facility] 01-12-2024 Emergency department Note Hourly rounding completed. Patient updated on plan on care. Comfort measures offered, patient given water and a warm blanket. No other needs at this time. ED PROVIDER NOTE [facility] NAME: Addie Organ AGE: 48 y.o. : 1975 VISIT DATE: 01/12/2024 CSN: [id number] PCP: Stephany Pelayo PA-C Clinical Impression: 1. [...] and MRI. I discussed this case with [facility] [place] [place] and they are willing to admit patient. [...] precipitated this pain. History provided by: Patient shipping technician used: No Wound Check Past Medical History: [...] blood sugar diagnostic (glucose blood) strips by Armas[employer]aneous route 3 (three) times a day As [...] (1,000 mcg total) by mouth daily Reasons: [facility]. Dexcom G6 Administrative And Program Specialist Misc Use as directed for continuous glucose [...] PA-C 01/12/24 1702 Pt was brought in [facility] from the [facility]. Pt was seeing primary doc and was referred to our ED for a Lt great toe inf. Pt had an ongoing toe inf-- last Thursday skin/toe nail came off tip of toe. No drainage/odor noted at this time. Bed: 02 Expected date: Expected time: Means of arrival: Comments: 28: 48F toe infection documented in this encounter [facility] 01-12-2024 Physician Emergency department Note ED PROVIDER NOTE [facility] NAME: Addie Organ AGE: 48 y.o. : 1975 VISIT DATE: 01/12/2024 CSN: [id number] PCP: Stephany Pelayo PA-C Clinical Impression: 1. [...] and MRI. I discussed this case with [facility] [place] [place] and they are willing to admit patient. [...] precipitated this pain. History provided by: Patient shipping technician used: No Wound Check Past Medical History: [...] (1,000 mcg total) by mouth daily Reasons: [facility]. Dexcom G6 Administrative And Program Specialist Misc Use as directed for continuous glucose [...] BHARAT Austin Zachary Joel, PA-C 01/12/24 1702 [facility] 01-12-2024 Note [facility] PHYSICIA [facility] INTERNAL MEDICINE [address] [facility]. [place] [id number] Patient: Addie Jean Baptiste is a 48 [...] (1,000 mcg total) by mouth daily Reasons: [facility]. 90 tablet 1 Dexcom G6 Administrative And Program Specialist Misc Use as directed for continuous glucose [...] (50 mg total) (more content not included)... [facility] 01-12-2024 History of Present illness Narrative [facility] PHYSICIANS [facility] INTERNAL MEDICINE [address] [place] [address] Patient: Addie Jean Baptiste is a 48 [...] (1,000 mcg total) by mouth daily Reasons: [facility]. 90 tablet 1 Dexcom G6 Administrative And Program Specialist [facility] Use as directed for [...] (HCC) Note: This dictation was generated using Gini [employer] Jony voice recognition software. Please excuse any grammatical [...] Stephany Pelayo PA-C documented in this encounter [facility] 01-12-2024 Emergency department Note Pt was brought in [facility] from the [facility]. Pt was seeing primary doc and was referred to our ED for a Lt great toe inf. Pt had an ongoing toe inf-- last Thursday skin/toe nail came off tip of toe. No drainage/odor noted at this time. [facility] 01-12-2024 Emergency department Note Bed: 02 Expected date: Expected time: Means of arrival: Comments: 28: 48F toe infection [facility] 01-11-2024 Telephone encounter Note Last UDS 12/08/23 Last OV 12/08/23 Next OV 02/02/24 [facility] 01-11-2024 Miscellaneous Notes Last UDS 12/08/23 Last OV 12/08/23 Next OV 02/02/24 documented in this encounter [facility] 12-21-2023 Telephone encounter Note Pt states Percocet is helping a lot with pain. Requesting 30 day supply. [facility] 12-21-2023 Miscellaneous Notes Pt states Percocet is helping a lot with pain. Requesting 30 day supply. documented in this encounter [facility] 12-16-2023 Note UDS CONSISTENT AUTHENTICATED BY JIM VELEZ ON 12/16/2023 11:03:43 [facility] 12-14-2023 History of Present illness Narrative Ne supplies order faxed to [employer]. Confirmation received. documented in this encounter [facility] 12-10-2023 Note Addie Organ 48 y.o. HPI [...] as well as wet wipes through to [employer] so I will see if I can order these. Patient wants to see Dr. Dominguez in [place] of Pul[facility] for her family history of pulmonary fibrosis. We will plan to update the referral. Patient was seen in the [facility] ER on November 06 for left-sided visual loss and was ultimately referred to Ophthalmology. She was seen by [facility] registered land surveyor, Dr. London, on November 08 and suspected [...] as well as new nebulizer supplies through [employer]. 4. Family history of pulmonary fibrosis. Will update patient's pulmonology referral to reflect that she wants to see Dr. Dominguez in [place]. 5. 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 I am managing [...] Chronic obstructive pulmonary disease, unspecified COPD type ([facility]) J44.9 496 albuterol 90 mcg/actuation inhaler Home [...] 3 mL (2.5 (more content not included)... [facility] 12-08-2023 Telephone encounter Note Refill DM medications. Dexcom downloaded for review and insulin RX needs completed [facility] 12-08-2023 Miscellaneous Notes Refill DM medications. Dexcom downloaded for review and insulin RX needs completed documented in this encounter [facility] 12-08-2023 Telephone encounter Note duplicate [facility] 12-08-2023 Miscellaneous Notes duplicate documented in this encounter [facility] 12-08-2023 Jim Berrios DO - 12/08/2023 2:29 [...] nightly only . documented in this encounter [facility] 12-08-2023 Note [facility] Interventional Pain Management Office Note Patient Name: Addie Jean Baptiste Referring Physician: Stephany Pelayo PA-C Date of : 1975 PCP: Stephany Pelayo PA-C Date of Service: 12/09/23 This is a 48 y.o. female who presents to [place] [facility] for an initial consultation. After [...] smoking as n (more content not included)... [facility] 12-08-2023 History of Present illness Narrative [facility] Interventional Pain Management Office Note Patient Name: Addie Organ Referring Physician: Stephany Pelayo PA-C Date of : 1975 PCP: Stephany Pelayo PA-C Date of Service: 12/09/23 This is a 48 y.o. female who presents to [facility] for an initial consultation. After [...] (1,000 mcg total) by mouth daily Reasons: [facility]. Dexcom G6 Administrative And Program Specialist Misc Use as directed for continuous glucose [...] OPIOIDS Jim Velez D.O. Interventional Pain Management [facility] documented in this encounter [facility] 12-02-2023 Instructions Sahara Sanchez MD - 12/02/2023 3:18 PM EDT Thank you for choosing the [facility]. Please get labs on [...] if you are interested in seeing a wellness educator/dietitian. Please call our office at [phone] or send a [employer] message if you have any questions or [...] and bedtime CGM documented in this encounter [facility] 12-02-2023 Note [facility] END[facility] [address] [phone] Addie Organ is a 48 y.o. female being seen for Diabetes Mellitus PCP: Stephany Pelayo PA-C Referring Physician: Stephany Pelayo PA-C HPI: She is here for consultation regarding management of type 1 diabetes that was diagnosed at 23 years of age. Started on insulin in 2004, switch to OmniPod several years ago. Currently on OmniPod 5. She has relocated from [facility] to [place] in 2022, was following up with endocrinology while in [place]. 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 [facility] 12-02-2023 History of Present illness Narrative Images from the original note were not included. [facility] ENDOCR[facility] [address] [place] [phone] Addie Jean Baptiste is a 48 y.o. female being seen for Diabetes Mellitus PCP: Stephany Pelayo PA-C Referring Physician: Stephany Pelayo PA-C HPI: She is here for consultation regarding management of type 1 diabetes that was diagnosed at 23 years of age. Started on insulin in 2004, switch to OmniPod several years ago. Currently on OmniPod 5. She has relocated from [facility] to [place] in 2022, was following up with endocrinology while in [place]. She is in a wheelchair for today's visit, has difficulty walking due to diabetic neuropathy. Current Diabetic Regimen: Omnipod 5 with Zeinab 2 --unable to download OmniPod 5 as she did not bring her PDM, she is going to bring it on Thursday. 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 90 tablet 1 ergocalciferol (Vitamin D2) 1,250 [...] needed . 90 tablet 0 Dexcom G6 Administrative And Program Specialist Misc Use as directed for continuous glucose [...] PT pulses, and absent sensations , callus 6TH GRADE TEACHER: Reveals no tremors in outstretched upper extremities. [...] MD Note: This dictation was generated using [employer] voice recognition software. Please excuse any grammatical or spelling errors that may have occurred using the system. documented in this encounter [facility] 11-12-2023 Telephone encounter Note Patient also requested alcohol pads (not on med sheet, or previously discontinued) Citalopram is by another provider and was prescribed 5/15 for 30 days with 2 refills. [facility] 11-12-2023 Miscellaneous Notes Patient also requested alcohol [...] preferred pharmacy listed below? Yes Preferred pharmacies: [facility] [address] [place] [phone] Pt Call Back Number Work Phone Not on file. Patient call back message sent to the primary care clinical pool. Jatinder Green documented in this encounter [facility] 11-12-2023 Telephone encounter Note ----- Message from [...] preferred pharmacy listed below? Yes Preferred pharmacies: [address] [address] Pt Call Back Number Work Phone Not on file. Patient call back message sent to the primary care clinical pool. Jatinder Green [facility] 11-09-2023 Note Procedure date: 11/08. Ultrasound findings [...] 03/13/2017 HGBA1C 9.1 09/27/2008 Last edited by Jcakelyn Yuen on 11/09/2023 3:20 PM. Allergies, medications & history reviewed & updated by Jackelyn Yuen REVIEW OF SYSTEMS ROS Positive for: Musculoskeletal (uses wheelchair), Eyes (decreased vision, sharp pain. black dots - OD), Allergic/Imm (seasonal allergies) Negative for: Skin, Psychiatric Last edited by Jackelyn Yuen on 11/09/2023 2:42 PM. 12 minutes of face to face time was spent with patient performing the photonics engineering technician work of this visit. Referring Physician: [...] 3:20 PM. Referring Doctor: Jessica Puentes MD [address] [place] [address] Medications: Current Outpatient Medications Medication Sig Albuterol [...] taking: Reported on 11/09/2023) Ergocalciferol 1.25 MG (16886 [place]) capsule Take 1 capsule by mouth [...] PLACEMENT 01/29/2012 Surgeon: Ashish Long MD,PhD; Location: [facility] IMPLANTABLE LOOP RECORDER 10/12/2010 ANKLE SURGERY CHOLECYSTECTOMY [...] Resource Strain: Medium Risk (05/11/2023) Received from [facility] Overall Financial Resource Strain (CARDIA) Difficulty of Paying Living Expenses: Somewhat hard Food Insecurity: Food Insecurity Present (05/11/2023) Received from [facility] Hunger Vital Sign Worried About Running Out of Food in the Last Year: Sometimes true Ran Out of Food in the Last Year: Sometimes true Transportation Needs: No Transportation Needs (05/11/2023) Received from [facility] PRAPARE - Transportation Lack of Transportation (Medical): No Lack of Transportation (Non-Medical): No Received from [facility] [place] Safety & Environment Housing Stability: High Risk (05/11/2023) Received from [facility] Housing Stability Vital Sign Unable to Pay [...] -hx of PPV/PRP OS [facility] 09/2022 -dense VH likely contributing to [...] but patient would like to present to [facility] which is closer to the patient. Discussed [...] general retina documented in this encounter [facility] 10-30-2023 Miscellaneous Notes Patient called and stated trazodone was discussed at last appt. Patient has switched pharmacies [facility] Last note states: Take trazodone 50mg;1-2 tabs as needed for insomnia. Medication pended. Called patient to notify, no answer. No VM. documented in this encounter [facility] 10-30-2023 Telephone encounter Note Patient called and stated trazodone was discussed at last appt. Patient has switched pharmacies [facility] Last note states: Take trazodone 50mg;1-2 tabs as needed for insomnia. Medication pended. Called patient to notify, no answer. No VM. [facility] 10-07-2023 History of Present illness Narrative [facility] R[facility]TA [facility]. Faxed. Copy sent to scan. documented in this encounter [facility] 10-07-2023 Instructions Rosario Sanchez MD - 10/07/2023 [...] anxiety. --Schedule for Individual therapy sessions at [facility]. --Will request records from [facility]. --Follow up with PCP as scheduled. --Please [...] days for refills. E) Please call the [facility] Behavioral Health Outpatient Services if needed, for questions, or other psychiatric concerns. F) Call 911 or present to nearest emergency room if you are feeling unsafe or suicidal. Additionally, individuals can call the Suicide Hotline locally at or nationally at . documented in this encounter [facility] 10-07-2023 History of Present illness Narrative BEHAVIORAL [...] anxiety. --Schedule for Individual therapy sessions at [facility]. --Will request records from [facility]. --Follow up with PCP as scheduled. --Please [...] last seen in July 2023. Lives in [place] with daughter in law and son. Interval [...] (1,000 mcg total) by mouth daily Reasons: [facility]., Disp: 90 tablet, Rfl: 1 ergocalciferol (Vitamin D2) 1,250 mcg (50,000 unit) capsule, Take 1 (one) capsule (50,000 Units total) by mouth once a week ., Disp: 12 capsule, Rfl: 1 FreeStyle Zeinab 2 Elmore Mis, Inject 1 each under the skin [...] by contextual derivation. documented in this encounter [facility] 10-06-2023 Telephone encounter Note Pt requesting refill as her appt was rescheduled into next week from tomorrow. [facility] 10-06-2023 Miscellaneous Notes Pt requesting refill as her appt was rescheduled into next week from tomorrow. documented in this encounter [facility] 09-16-2023 Instructions Virgen Campos MD - 09/16/2023 1:44 PM EDT Keep a blood pressure log several times a week Goal is <140/90 or ideally <130/80 documented in this encounter [facility] 09-16-2023 History of Present illness Narrative Patient Name: Addie Jean Baptiste MR #: [id number] : 1975 Date of evaluation: 09/16/2023 Referring [...] CT lumbar spine and clinical exam at [facility] - getting injections at that time [...] Chief Complaint: Chief Complaint Patient presents with [facility] FOLLOW UP 04/2023 - Hospital Consult [...] CT lumbar spine and clinical exam at [facility] - getting injections at that time [...] the patient was evaluated by neurology at [facility] on 01/13/23 for seizures. Patient has a history of seizures. Reports having seizures weekly; her last seizure was last week. Reports being compliant with her Keppra. Also, per chart review she was evaluated at [facility] 03/06/22 for right side weakness and numbness. [...] one. Patient lives with her son and [id number]. She does not drive. Reports that she does not ambulate well due to unsteadiness due to several chronic conditions. Reports that her son and [id number] care for her most of the time. [...] medical history of Anxiety, Bipolar 1 disorder ([facility]), Bipolar disorder ([facility]), Chronic back pain, Coronary artery disease, Depression, Diabetes mellitus ([facility]), Hypertension, MRSA (methicillin resistant Staphylococcus aureus), Pacemaker, Seizures ([facility]), and Stroke ([facility]). Social History She reports that she has [...] (1,000 mcg total) by mouth daily Reasons: [facility]. 90 tablet 1 ergocalciferol (Vitamin D2) 1,250 mcg (50,000 unit) capsule Take 1 (one) capsule (50,000 Units total) by mouth once a week . 12 capsule 1 FreeStyle Zeinab 2 Elmore Misc Inject 1 each under the skin [...] Calculation (Bezet) 06/18/2023 452 ms Final P [place] 06/18/2023 53 degrees Final R [place] 06/18/2023 10 degrees Final T [place] 06/18/2023 34 degrees Final Sodium 07/31/2023 137 [...] Clarity, Urine 07/31/2023 Clear Clear Final Specific [place] 07/31/2023 1.013 1.005 - 1.025 Final pH, [...] Clarity, Urine 07/28/2023 Clear Clear Final Specific [place] 07/28/2023 1.021 1.005 - 1.025 Final pH, [...] Clarity, Urine 07/12/2023 Clear Clear Final Specific [place] 07/12/2023 1.013 1.005 - 1.025 Final pH, [...] Calculation (Bezet) 07/12/2023 435 ms Final P [place] 07/12/2023 58 degrees Final R [place] 07/12/2023 12 degrees Final T [place] 07/12/2023 43 degrees Final Troponin T 07/12/2023 [...] Urine 07/08/2023 Hazy (A) Clear Final Specific [place] 07/08/2023 1.018 1.005 - 1.025 Final pH, [...] Clarity, Urine 06/18/2023 Clear Clear Final Specific [place] 06/18/2023 1.018 1.005 - 1.025 Final pH, [...] Calculation (Bezet) 06/03/2023 423 ms Final P [place] 06/03/2023 58 degrees Final R [place] 06/03/2023 14 degrees Final T [place] 06/03/2023 35 degrees Final Sodium 06/03/2023 135 [...] Calculation (Bezet) 05/10/2023 427 ms Final P [place] 05/10/2023 54 degrees Final T [place] 05/10/2023 30 degrees Final Extra Tube 05/10/2023 [...] Clarity, Urine 05/11/2023 Clear Clear Final Specific [place] 05/11/2023 1.017 1.005 - 1.025 Final pH, [...] Urine 04/28/2023 Hazy (A) Clear Final Specific [place] 04/28/2023 1.022 1.005 - 1.025 Final pH, [...] Calculation (Bezet) 04/26/2023 443 ms Final P [place] 04/26/2023 62 degrees Final R [place] 04/26/2023 76 degrees Final T [place] 04/26/2023 -7 degrees Final Sodium 04/26/2023 139 [...] are not included. documented in this encounter [facility] 09-16-2023 Telephone encounter Note Attempted to contact patient to notify of medication adjustments. [facility] 09-16-2023 Miscellaneous Notes Attempted to contact patient [...] Not sleeping well. Nausea from anxiety. [facility] [address] documented in this encounter [facility] 09-15-2023 Telephone encounter Note Yes we can have her increase the dose of Celexa to 20mg daily and for sleep adjust her nortryptlline to 50mg nightly,but she needs to discuss with her pcp as well.We can give her zyprexa 5mg;half tab twice a day as needed for anxiety/agitation. [facility] 09-15-2023 Telephone encounter Note Patient called stating that she lost her mother last week and wants something to help with her nerves. Not sleeping well. Nausea from anxiety. [facility] [address] 09-10-2023 History of Present illness Narrative Hospital bed mattress order faxed to [facility]. Confirmation received. documented in this encounter [facility] 09-03-2023 History of Present illness Narrative Addie [...] G89.4 338.4 Ambulatory referral to Pain Medicine [facility] Bed 2. Muscle spasms of both lower extremities M62.838 728.85 Ambulatory referral to Pain Medicine 3. Urinary incontinence, unspecified type R32 788.30 4. Chronic nonintractable headache, unspecified headache type R51.9 784.0 G89.29 5. Chronic obstructive pulmonary disease, unspecified COPD type ([facility]) J44.9 496 Miscellaneous DME Equipment [facility] Bed 6. Type 2 diabetes mellitus with diabetic polyneuropathy, with long-term current use of insulin ([facility]) E11.42 250.60 FreeStyle Zeinab 2 Sensor Kit [...] (1,000 mcg total) by mouth daily Reasons: [facility]. 90 tablet 1 ergocalciferol (Vitamin D2) 1,250 mcg (50,000 unit) capsule Take 1 (one) capsule (50,000 Units total) by mouth once a week . 12 capsule 1 FreeStyle Zeinab 2 Elmore Misc Inject 1 each under the skin [...] Behavior: Behavior normal. documented in this encounter [facility] 08-26-2023 Hospital Discharge instructions MARY Wen - [...] cannot be sent through Care Everywhere.Leg Pain (Latvian)documented in this encounter [facility] 08-26-2023 Physician Emergency department Note ED RE-EVALUATION NOTE CURRENT PLAN & ASSESSMENT: Left leg pain. DIAGNOSTIC RESULTS: Xrays. DISPOSITION: Pending imaging and pain control. MARY Wen 08/26/23 [id number] [facility] 08-26-2023 Emergency department Note ED RE-EVALUATION NOTE CURRENT PLAN & ASSESSMENT: Left leg pain. DIAGNOSTIC RESULTS: Xrays. DISPOSITION: Pending imaging and pain control. MARY Wen 08/26/23 [id number] HISTORY 48 y.o. year old female history [...] PLACEMENT 01/29/2012 Surgeon: Ashish Long MD,PhD; Location: [facility] EP IMPLANTABLE LOOP RECORDER 10/12/2010 ANKLE SURGERY CHOLECYSTECTOMY HEART CATHETERIZATION HYSTERECTOMY ALLERGIES Allergies Allergen Reactions Iodides Other reaction(s): Other (See Comments) Renal compromise Tramadol Seizures Codeine And Related Aggressive Behavior Darvocet [Propoxyphene N-Apap] Nausea and Vomiting Adhesive [*Adhesive Tape] Dye Shelter Red 3 (Erythrosine) IV DYE shuts down [...] Resource Strain: Medium Risk (05/11/2023) Received from [facility] Overall Financial Resource Strain (CARDIA) Difficulty of Paying Living Expenses: Somewhat hard Food Insecurity: Food Insecurity Present (05/11/2023) Received from [facility] Hunger Vital Sign Worried About Running Out of Food in the Last Year: Sometimes true Ran Out of Food in the Last Year: Sometimes true Transportation Needs: No Transportation Needs (05/11/2023) Received from [facility] PRAPARE - Transportation Lack of Transportation (Medical): No Lack of Transportation (Non-Medical): No Received from [facility] Safety & Environment Housing Stability: High Risk (05/11/2023) Received from [facility] Housing Stability Vital Sign Unable to Pay [...] on motorized chair. documented in this encounter [facility] 08-26-2023 Physician Emergency department Note [...] 01/29/2012 Surgeon: Ashish Long MD,PhD; Location: [facility] EP IMPLANTABLE LOOP RECORDER 10/12/2010 ANKLE SURGERY CHOLECYSTECTOMY HEART CATHETERIZATION HYSTERECTOMY ALLERGIES Allergies Allergen Reactions Iodides Other reaction(s): Other (See Comments) Renal compromise Tramadol Seizures Codeine And Related Aggressive Behavior Darvocet [Propoxyphene N-Apap] Nausea and Vomiting Adhesive [*Adhesive Tape] Dye Shelter Red 3 (Erythrosine) IV DYE shuts down [...] Resource Strain: Medium Risk (05/11/2023) Received from [facility] Overall Financial Resource Strain (CARDIA) Difficulty of Paying Living Expenses: Somewhat hard Food Insecurity: Food Insecurity Present (05/11/2023) Received from [facility] Hunger Vital Sign Worried About Running Out of Food in the Last Year: Sometimes true Ran Out of Food in the Last Year: Sometimes true Transportation Needs: No Transportation Needs (05/11/2023) Received from [facility] PRAPARE - Transportation Lack of Transportation (Medical): No Lack of Transportation (Non-Medical): No Received from [facility] [place] Safety & Environment Housing Stability: High Risk (05/11/2023) Received from [facility] Housing Stability Vital Sign Unable to Pay [...] Prescription drug management. Floyd Mercado MD 08/26/23 [id number] [facility] Work Phone: 08-26-2023 Emergency department Note Fell onto left knee on curb while trying to get into car a couple hours ago. Denies hitting head, anti coag use. C/o left knee, left lower leg pain with swelling. Pain worse with movement. Aox4, respirations unlabored, sitting on motorized chair. [facility] 08-11-2023 Telephone encounter Note Requested Prescriptions Signed Prescriptions Disp Refills tiZANidine (ZANAFLEX) 4 MG tablet 60 tablet 0 Sig: Take 1 (one) tablet (4 mg total) by mouth 2 (two) times a day as needed for muscle spasms . Authorizing Provider: RAFAELA MEDRANO [facility] 08-11-2023 Miscellaneous Notes Requested Prescriptions Signed Prescriptions Disp Refills tiZANidine (ZANAFLEX) 4 MG tablet 60 tablet 0 Sig: Take 1 (one) tablet (4 mg total) by mouth 2 (two) times a day as needed for muscle spasms . Authorizing Provider: RAFAELA MEDRANO Spoke to [facility] on [address] Since we received notice that a prior auth was needed on the zanaflex. They stated that the capsules just need to be changed to tablets, then no prior auth will be needed. (They have changed in the past) documented in this encounter [facility] 08-11-2023 Telephone encounter Note Spoke to pharmacy. Script needed changed to tablet then prior auth did not need to be done. [facility] 08-11-2023 Miscellaneous Notes Spoke to pharmacy. Script [...] calling. States appt is 09/02 with Stephany Pelyao. Needs refill on Zanaflex and insulin for now. [facility] [address] documented in this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 www.apartments.com https://www.Tourjive.July Systems/groups/13 90115375324565/ www.rentals.com https://www.Tourjive.July Systems/groups/55 2127792894256/ [employer]/cxjoij-kcxqzc-av/re ntals/ [facility] FOOD ASSISTANCE [facility] [phone] By appointment only Thursday-Thursday between 10am and 3pm ([address] [facility]. Must provide photo ID and proof of address) [facility] [phone] , Wed, Fri, Sat 10a to 12p. 3p to 5p. ([address] [facility]. Photo ID and proof of address required) [facility] [phone] 3rd Sat of each month, 10a to 12p ([address] [facility]. photo ID and proof of address required) Life (LINK) [phone] 4th of each month. Call on Thursday between 10a and 2p to schedule ([address]) Chuy/German Community Pantry [phone] Thursday 2pm-6pm Thursday Produce 2pm to 4pm [facility] [phone] ([address] [facility]. Call to inquire) [facility] [phone] Monthly giveaway, call for info ([address] [facility]) [facility] [phone] Wednesdays 830am to 10am bread giveaway only ([address] [facility] [facility]) Breaking Bread Food Pantry [phone] 3p to 5p ([address] [place] [facility]. Photo ID and proof of address required) Logos [facility] [phone] call for info ([address] [facility]) Helping Hands Helping Others Food Pantry [phone] Mondays and Thu 4p to 7p, soup kitchen Tuesdays 530p to 6p ([address] [facility]. Photo ID and proof of address required) [facility] Food Pantry [phone] call for info ([address] Abisai [facility]) [facility] Commodity Supplemental Food Program Contact Fatimah at [phone] Food box distribution for income eligible [facility] seniors 60+ ([address] [facility] Hospital[facility]el [facility]) The following attachments cannot be sent through Care Everywhere.Chest Pain (Latvian)documented in this encounter [facility] 02-18-2023 Consult note Associated Order (s): IP [...] are currently staying in a motel in [place]. Pt asking for help with housing. SW [...] she is also wanting to get an Automatic Washer Mechanic here in [place] as hers is still in [place]. Pt is agreeable to Waiver referral. SW also suggested looking into [employer] [employer] Sleeping rooms, or other affordable housing options. She did report she is able to make calls to places. Agreeable to housing help info on [facility]. SW faxed Waiver Referral. SW placed housing options on [facility] Community Resource Packet provided to pt. SW placed ambulatory referral to Endocrinology. Assessment and Background Information: Living Arrangements: Homeless Support Systems: Family members Assistance Needed: denies Type of Residence: (Hotel) Prior to Admission Home Care Services: No [facility] 02-18-2023 Note Formatting of this n ote [...] echo Rest of management as per H&P [facility] 02-18-2023 Note Formatting of this n ote [...] Goal: Absence of falls Outcome: Partially Met [facility] 02-18-2023 Physician Emergency department Note Associated Order(s): ECG 12 Lead Images from the original note were not included. ED PROVIDER NOTE [facility] NAME: Addie Organ AGE: 47 y.o. : 1975 VISIT DATE: 02/17/2023 CSN: [id number] PCP: System, Provider Not In Clinical Impression: 1. Chest pain, unspecified type 2. Flank pain ED Disposition ED Disposition Hospitalize Condition -- Comment Recommended Level of Care: Med Surg Phone call required?: No Follow-up Information Follow-up information has not been specified. Contact information for after-discharge care Follow-up information has not been specified. Medical Decision Making I reviewed prior [facility] records, patient is agreeable to [...] plan, .I reviewed the patient's case with [facility] [place] hospitalist whom accepted the patient for further [...] MRSA (methicillin resistant Staphylococcus aureus) Pacemaker Seizures ([facility]) Stroke (HCC) Past Surgical History: Procedure Laterality [...] Yellow Clarity, Urine Hazy (A) Clear Specific [place] 1.025 1.005 - 1.025 pH, Urine 5.0 [...] Ladan Gonzalez Karen Michelle, DO 02/18/23 0040 [facility] 02-18-2023 Emergency department Note Associated Order(s): ECG 12 Lead Images from the original note were not included. ED PROVIDER NOTE [facility] NAME: Addie Jean Baptiste AGE: 47 y.o. : 1975 VISIT DATE: 02/17/2023 CSN: [id number] PCP: System, Provider Not In Clinical Impression: 1. Chest pain, unspecified type 2. Flank pain ED Disposition ED Disposition Hospitalize Condition -- Comment Recommended Level of Care: Med Surg Phone call required?: No Follow-up Information Follow-up information has not been specified. Contact information for after-discharge care Follow-up information has not been specified. Medical Decision Making I reviewed prior [facility] records, patient is agreeable to [...] plan, .I reviewed the patient's case with [facility] [place] hospitalist whom accepted the patient for further [...] Yellow Clarity, Urine Hazy (A) Clear Specific [place] 1.025 1.005 - 1.025 pH, Urine 5.0 [...] back. Patient arrived from home via [facility] EMS report Patient has been complaining of some chest tightness and SOB since around 4pm. Patient indicated that she feels that her chest is tight and the room is spinning. Patient had normal vitals in route. Asprin and nitroglycerin given in route. See EMS report Bed: 10 Expected date: Expected time: Means of arrival: Comments: 26- CP documented in this encounter [facility] 02-18-2023 History and physical note [facility] [place] [place] HISTORY AND PHYSICAL -- [facility] Patient Name: Addie Jean Baptiste : 1975 MR #: [id number] Admit Date: 02/17/2023 Physicians: System, Provider Not In (Family); No ref. provider found (Referring) Addie Jean Baptiste is a 47 y.o. female patient of System, Provider Not In with history of diabetes, hypertension, hypothyroidism, COPD, and GERD, now presented to [facility] with chest pain. Chest pain Admit patient. [...] hypothyroidism, COPD, and GERD, now presented to [facility] with chest pain. Beginning around 4 PM, [...] normal coloration Psych: normal mood and affect [facility] 02-18-2023 History and physical note [facility] [place] [place] HISTORY AND PHYSICAL -- [facility] Patient Name: Addie Jean Baptiste : 1975 MR #: [id number] Admit Date: 02/17/2023 Physicians: System, Provider Not In (Family); No ref. provider found (Referring) Addie Jean Baptiste is a 47 y.o. female patient of System, Provider Not In with history of diabetes, hypertension, hypothyroidism, COPD, and GERD, now presented to [facility] with chest pain. Chest pain Admit patient. [...] hypothyroidism, COPD, and GERD, now presented to [facility] with chest pain. Beginning around 4 PM, [...] mood and affect documented in this encounter [facility] 02-17-2023 Emergency department Note Patient is complaining of chest pain all over, a headache, and right sided abdominal pain that radiates to her back. [facility] 02-17-2023 Emergency department Note Patient arrived from home via [facility] EMS report Patient has been complaining of some chest tightness and SOB since around 4pm. Patient indicated that she feels that her chest is tight and the room is spinning. Patient had normal vitals in route. Asprin and nitroglycerin given in route. See EMS report [facility] 02-17-2023 Emergency department Note Bed: 10 Expected date: Expected time: Means of arrival: Comments: 26- CP [facility] 02-09-2023 Instructions Josué Christianson, - 02/09/2023 3:52 [...] repeat 10 to 20 times. Developed by [employer]. Published by [employer]. 2009 [facility] and/or its affiliates. All Rights Reserved. documented in this encounter [facility] 02-09-2023 History of Present illness Narrative CC: Knee pain HPI HISTORY: Addie Jean Baptiste who is a 47 y.o. female that presents for evaluation of a chief complaint: Chief Complaint Patient presents with Right Knee - Pain NEW PATIENT RT KNEE PAIN, fell 01/19/23 went to [facility] ER No [...] at pharmacy - uses [facility] in [place] . 06/01/20 Manuel Cardona MD fluticasone-salmeterol (ADVAIR [...] normal Alignment: normal Other FractureNegative BMP Order: [id number] Status: Final result Visible to patient: No (inaccessible in [facility]) 0 Result Notes Component [...] mellitus with other specified complication, unspecified whether detention insulin use (HCC) We a long discussion [...] 40 MG tablet documented in this encounter [facility] 11-13-2022 Note Admission and Discha rge Information [...] removal of hardware by Dr. Amaro in [facility] however she was declined transfer to [place] when ED attempted to do so and [...] home health care wound care nurse from [facility] as soon as she returns home [...] be reviewed and discussed with PCP or oracle database consultant MD once the hospital roughing mill operator is able to reach him/her. I spent a lengthy amount of time with the patient and/or family reviewing discharge instructions, medications, medication use. Patient to follow-up with PCP and specialty providers as scheduled on discharge. Patient being discharged in medically/hemodynamically stable cond. with instructions to return to the hospital if sympto (more content not included)... [facility] Comment on above: Result Comment: [...] Locations R1: This test was performed at: [facility], [address] [place] [address], [address] [place] [address], [facility] Comment on above: Performed By: #### 1 [id number] ####[facility] [address] [place] [address] 11-05-2022 Note Microbiology PROCEDURE: Blood Culture Charcoal [R1] SOURCE: Blood BODY SITE: Chest COLLECTED DATE/TIME: 10/28/2022 19:18 EDT RECEIVED DATE/TIME: 10/28/2022 20:37 EDT START DATE/TIME: 10/28/2022 20:37 EDT FREE TEXT SOURCE: Preston Lugo DO, DO, John FINAL REPORTS Final Report [] Verified Date/Time: 11/05/2022 07:00 EDT No growth at 7 days. Performing Locations R1: This test was performed at: [facility], [address] [place] [address], [address] [place] [address], [facility] Comment on above: Performed By: #### 1 [id number] ####[facility] [id number] [address] 10-31-2022 Note Attempted PT Evaluat ion x 3 days, but pt denies any PT needs and states she has been up walking to the bathroom Independently. No evaluation given Please re-order PT services if any changes to WB status [facility] 10-29-2022 Note Order received and isabell box reviewed. Will Hold PT Evaluation and await Podiatry consult prior to beginning [facility] 10-29-2022 Note Basic Information Admit Date/Time:10/29/2022 00:01 Pt had hardware removed from R foot by [facility] in [place] on . Surgical site now appears infected [...] 15. GERD 16. History of MRSA; sees district court judge Dr. Box Patient was hospitalized at [facility] last because her right foot was red and swollen. She was taken to [place] and she was admitted for cellulitis of [...] are essentially unremarkable. ER reached out to [place] to be transferred to where she had [...] hysterectomy 5. Status post pacemaker placement 6. Iagpsx-m-Rsll placed 7. LEEP procedure FAMILY HISTORY Mother [...] touch; sutures intact; (more content not included)... [facility] Comment on above: Result Comment: [...] the critical portions of the procedure. [facility] 10-07-2022 Hospital Discharge instructions Nikko Kendrick, [...] see your Primary Care Physician (or call [phone] if you do not have a PCP) for follow up in the next 5-7 days. TRANSPORTATION TO [facility] FOR AN APPOINTMENT: PLEASE CALL [phone]. Extremity Injury Instructions: Return to the ED [...] sent through Care Everywhere.Urinary Incontinence Discharge Instructions (Latvian)Diabetic Neuropathy (Latvian)documented in this encounter [facility] 10-07-2022 Note POST-PROCEDURE NOTE Procedure: Myelogram [...] the procedure. Sonia Beach MD Radiology [facility] 10-07-2022 Note Pre-Procedure Note HISTORY: Procedure: [...] Directives (Living will, health care power of privacy attorney): none Patient Recent Code Status: No Order Code Status For This Procedure: Full Code Sonia Beach MD Radiology [facility] 10-06-2022 Evaluation + Plan note Extrac [...] NM Myocardial Spect Rest/Stress 1 Day 12/16/21 [facility]04-24-2023 Hospital Discharge instructions Patient Education [...] a cut, a sore, or an invasive emergency medical service coordinator, it can cause a serious infection. What are the causes? This condition is caused by staph bacteria. Illness may develop after exposure to the bacteria through: Rvfc-gl-cylv contact with someone who is infected with MRSA. Touching surfaces that have the bacteria on them. Having a procedure or using equipment that allows MRSA to enter the body. Having MRSA that lives on your skin and then enters your body through: ?A cut or scratch. ?A surgery or procedure. ?The use of a emergency medical service coordinator. Contact with the bacteria may occur: During a stay in a hospital, rehabilitation facility, assisted, or other health care facility (health care associated MRSA). In daily activities where there is close contact with others, such as sports, child development professor centers, or at home (community-associated MRSA). What [...] system (immune system). Play sports that involve hbtp-hu-skur contact. Live in a crowded place, like a dormitory or [employer] barracks. Share towels, razors, or sports equipment [...] Follow these instructions at home: Medicines Take qzel-wxb-oxjqenn and prescription medicines only as told by [...] are not available, use an alcohol-based hand roofing tile sorter. Avoid close contact with those around you [...] Document Reviewed: 07/29/2019 Elsevier Patient Education 2022 [employer]. 09/15/2022 12:14:10 Cellulitis, Adult Cellulitis, Adult Cellulitis [...] Follow these instructions at home: Medicines Take dhme-jih-otuzqkx and prescription medicines only as told by [...] such as antibiotic medicines or antihistamines. Take dkfd-yfg-tjnkmub and prescription medicines only as told by [...] provider. Document Revised: 02/20/2022 Document Reviewed: 02/20/2022 Ge[employer] Patient Education 2022 [employer]. Follow Up Care 09/12/2022 13:40:51 With:LAURENT FRANCO Address: [address] [place] [address]- Business (1) When: Unknown Comments:Appointment line is out of service. Please contact your PCP for an appointment. Thank you! With:Soto Box Address: [facility] [address] [place] [address]- 0 Business (1) When:3 to 5 days Comments:Call for followup appointment [facility]04-24-2023 Evaluation + Plan noteExtracted from: [...] Oral, Daily ergocalciferol 50,000 intl units Cap, 94394 International_Unit= 1 cap(s), Oral, Thursday hydrOXYzine pamoate [...] Soto Box Within 3 to 5 days [facility] [address] [facility] [place] [address]- 0 Business (1) Additional Instructions: LAURENT FRANCO In 0 days [address] [place] [address] [place] [address]- Business (1) Additional Instructions: MRSA Infection, Diagnosis, Adult Cellulitis, Adult Extracted from: Title:APSO Note Author:Stone HICKEY Date:09/14/22 PLAN 1. Cellulitis (L03.90: Cellulitis, unspecified) Patiently recently admitted to [facility] and underwent an incision and drainage [...] shoe follow-up next week Her cultures at [facility] was positive for MRSA Blood culture [...] artery disease) (I25.10: Atherosclerotic heart disease of [place] coronary artery without angina pectoris) history of VT with AICD placed per Dr Noble in [place]. Statin, aspirin, BB 4. HTN (hypertension) (I10: [...] (L03.90: Cellulitis, unspecified) Patiently recently admitted to [facility] and underwent an incision and drainage [...] pending. Consult podiatry pending Her cultures at [facility] was positive for MRSA Blood culture [...] artery disease) (I25.10: Atherosclerotic heart disease of [place] coronary artery without angina pectoris) history of VT with AICD placed per Dr Noble in [place]. Statin, aspirin, BB 4. HTN (hypertension) (I10: [...] Consult to Infectious Disease Physician Consult to Service Technician Continuous Pulse Oximetry Diabetic/Calorie Control Diet Elevate [...] NM Myocardial Spect Rest/Stress 1 Day 12/16/21 [facility]03-31-2023 Discharge summary Author Jeana Martini [facility] August 22, 2022 1:35pm Note Date/Time August 22, 2022 1:3 0pm [facility] [address] [place] [address] Discharge Summary Signed Patient: Addie Jean Baptiste MR#: [id number] : 1975 Acct:[id number] Age/Sex: 47 / F Adm Date: 3 Loc: Room: [address] [place] [address]: Jeana Martini MD Copies to: [...] on intravenous antibiotic Patient was seen by district court judge who recommended and performed bedside incision and [...] place, time and person, morbidly obese HEENT: [place] conjunctiva and NL buccal mucosa Neck: Supple, [...] ask your primary care provider to obtain [facility] records entirely to follow up on all of the abnormal physical, laboratory, and imaging findings that I have not addressed. Please follow-up with Dr. Romero to evaluate your circulation Please return back to the emergency room or seek medical attention if your symptoms worsen or return. Discharging you from [facility] does not mean that your medical care [...] to 2 weeks. Please call for appointment.) [facility] [place] [Physician] - 08/25/22 10:15 am (Follow-up with your Primary Care Provider, call office to reschedule if needed. ) Documented By: Jeana Martini MD 08/22/22 1325 Signed By: <Electronically signed by Jeana Martini MD> 08/22/22 1335 [facility] Work Phone: 1([phone]) 109-280103-31-2023 Hospital Discharge instructionsAmbulatory Orders* Initiate Home Health Time Frame: 08/22/22, Location: Determined By Patient Additional Instructions I may not have addressed or treated all of your medical illnesses or the abnormal blood work or imaging studies during this hospitalization. Please ask your primary care provider to obtain [facility] records entirely to follow up on all of the abnormal physical, laboratory, and imaging findings that I have not addressed. Please follow-up with Dr. Romero to evaluate your circulation Please return back to the emergency room or seek medical attention if your symptoms worsen or return. Discharging you from [facility] does not mean that your medical care [...] Assist with medication management and [facility] Work Phone: 1([phone]) 128-663603-31-2023 Progress note Author Shameka Romero [facility] August 22, 2022 9:56am Note Date/Time August 22, 2022 9:5 6am [facility] [address] [place] [address] Vascular Surgery Progress Note Signed Patient: Addie Jean Baptiste MR#: [id number] : 1975 Acct:[id number] Age/Sex: 47 / F Adm Date: 3 Loc: Room: [address] [place] [address] Type: ADM IN Attending Dr: Jeana Martini [...] to the special suite and placed her [facility] angiography table. She is extremely anxious [...] signed by Shameka Romero MD> 08/22/22 0956 [facility] Work Phone: 1([phone]) 274-822703-31-2023 Progress note Author Jeana Martini [facility] August 22, 2022 9:54am Note Date/Time August 22, 2022 9:5 5am [facility] [address] [place] [address] Hospitalist Progress Note Signed Patient: Addie Jean Baptiste MR#: [id number] : 1975 Acct:[id number] Age/Sex: 47 / F Adm Date: 3 Loc: 3T Room: [address] [place] [address] Type: ADM IN Attending Dr: Jeana Martini [...] place, time and person, morbidly obese HEENT: [place] conjunctiva and NL buccal mucosa Neck: Supple, [...] Insuln.Pen SUBCUT 08/20/23 11:59 Not Given TID.WM.HS [facility] Protocol Levetiracetam 750 mg 08/20/22 09:00 08/22/22 [...] signed by Jeana Martini MD> 08/22/22 0954 [facility] Work Phone: 1(227) 696-918203-30-2023 Consult note Author Shameka Romero [facility] August 21, 2022 4:02pm Note Date/Time August 21, 2022 4:0 0pm [facility] [address] [place] [address] Vascular Surgery Consult Note Signed Patient: Addie Jean Baptiste MR#: [id number] : 1975 Acct:[id number] Age/Sex: 47 / F Adm Date: 3 Loc: Room: [address] [place] [address] Type: ADM IN Attending Dr: Jeana Martini [...] date: 08/21/2022 Requesting Physician: Jeana Martini MD [facility] Vaccinated for COVID-19?: Yes Medical History [...] % (Auto) 69.4 Lymph % (Auto) 20.6 [place] % (Auto) 7.4 Eos % (Auto) 1.8 Baso % (Auto) 0.8 Nucleat RBC Rel Count 0.0 Neut # (Auto) 5.7 Lymph # (Auto) 1.7 [place] # (Auto) 0.6 Eos # (Auto) 0.2 [...] MPV Neut % (Auto) Lymph % (Auto) [place] % (Auto) Eos % (Auto) Baso % (Auto) Nucleat RBC Rel Count Neut # (Auto) Lymph # (Auto) [place] # (Auto) Eos # (Auto) Baso # [...] signed by Shameka Romero MD> 08/21/22 [address] [facility] Work Phone: 1(998) 631-744903-30-2023 Progress note Author Lawrence Kim [facility] August 21, 2022 11:22am Note Date/Time August 21, 2022 11: 22am [facility] [address] [place] [address] Infect. Disease Progress Note Signed Patient: Addie Jean Baptiste MR#: [id number] : 1975 Acct:[id number] Age/Sex: 47 / F Adm Date: 3 Loc: Room: [address] [place] [address] Type: ADM IN Attending Dr: Jeana Martini [...] Mg/0.4 Ml Syringe) 40 mg SUBCUT DAILY@1000 [facility] Stop: 08/20/23 09:59 Last Admin: 08/21/22 09:01 Dose: 40 mg Ergocalciferol (Ergocalciferol 1,250 Mcg (50,000 Units) Capsule) 1,250 mcg PO Q7D [facility] Stop: 08/20/23 09:44 Last Admin: 08/20/22 14:44 Dose: Not Given Furosemide (Furosemide 20 Mg Tablet) 20 mg PO DAILY.8A [facility] Stop: 08/20/23 07:59 Last Admin: 08/21/22 09:00 [...] 300 Units/3 Ml Insuln.Pen) 0 units SUBCUT TID.WM.[facility]; Protocol Stop: 08/20/23 11:59 Last Admin: 08/21/22 09:03 Dose: Not Given Levetiracetam (Levetiracetam 250 Mg Tablet) 750 mg PO BID [facility] Stop: 08/20/23 08:59 Last Admin: 08/21/22 08:59 Dose: 750 mg Levothyroxine Sodium (Levothyroxine 75 Mcg Tablet) 75 mcg PO DAILY@0630 [facility] Stop: 08/20/23 06:29 Last Admin: 08/21/22 06:09 Dose: 75 mcg Lisinopril (Lisinopril 40 Mg Tablet) 40 mg PO DAILY [facility] Stop: 08/20/23 08:59 Last Admin: 08/21/22 09:01 Dose: 40 mg Metformin HCl (Metformin 500 Mg Tablet) 1,000 mg PO BID.WITH.MEALS [facility] Stop: 08/20/23 07:59 Last Admin: 08/21/22 09:00 Dose: 1,000 mg Pantoprazole Sodium (Pantoprazole 40 Mg Tablet.Dr) 40 mg PO DAILY [facility] Stop: 08/21/23 08:59 Last Admin: 08/21/22 09:01 Dose: 40 mg Pregabalin (Pregabalin 150 Mg Capsule) 150 mg PO HS [facility] Stop: 02/16/23 03:44 Last Admin: 08/20/22 21:12 Dose: 150 mg Quetiapine Fumarate (Quetiapine Fumarate 200 Mg Tablet) 800 mg PO HS [facility] Stop: 08/20/23 03:59 Last Admin: 08/20/22 21:12 Dose: 800 mg Saccharomyces Boulardii (Saccharomyces Boulardii 250 Mg Capsule) 250 mg PO BID.WITH.MEALS [facility] Stop: 08/20/23 07:59 Last Admin: 08/21/22 08:59 [...] signed by MD Lawrence Kim> 08/21/22 1122 [facility] Work Phone: [phone] 617-881203-30-2023 Progress note Author Jeana Martini [facility] August 21, 2022 10:10am Note Date/Time August 21, 2022 10: 10am [facility] [address] [place], [place] [id number] Hospitalist Progress Note Signed Patient: Addie Jean Baptiste MR#: [id number] : 1975 Acct:[id number] Age/Sex: 47 / F Adm Date: 3 Loc: 3T Room: [address] [place] [address] Type: ADM IN Attending Dr: Jeana Martini [...] place, time and person, morbidly obese HEENT: [place] conjunctiva and NL buccal mucosa Neck: Supple, [...] signed by Jeana Martini MD> 08/21/22 1010 [facility] Work Phone: [phone]) 394-534003-29-2023 Consult note Author Swapnil Castillo [facility] August 20, 2022 1:14pm Note Date/Time August 20, 2022 1:1 3pm [facility] [address] [place] [address] Podiatry Consult Note Signed Patient: Addie Jean Baptiste MR#: [id number] : 1975 Acct:[id number] Age/Sex: 47 / F Adm Date: 3 Loc: Room: [address] [place] [address] Type: ADM IN Attending Dr: Jeana Martini [...] <Electronically signed by LUPE Castillo> 08/20/22 1314 [facility] Work Phone: [phone] 166-806803-29-2023 Consult note Author Lawrence Kim [facility] August 20, 2022 10:27am Note Date/Time August 20, 2022 10: 26am [facility] [address] [place] [address] Infect. Disease Consult Note Signed Patient: Addie Jean Baptiste MR#: [id number] : 1975 Acct:[id number] Age/Sex: 47 / F Adm Date: 3 Loc: Room: [address] [place] [address] Type: ADM INOo Attending Dr: Jeana Martini [...] me she was hospitalized in July at [facility] for 4 days for this. She apparently [...] negative unless noted below or in HPI [facility] Attestation Statement: The following information was [...] Mg/0.4 Ml Syringe) 40 mg SUBCUT DAILY@1000 [facility] Stop: 08/20/23 09:59 Last Admin: 08/20/22 09:29 Dose: 40 mg Ergocalciferol (Ergocalciferol 1,250 Mcg (50,000 Units) Capsule) 1,250 mcg PO Q7D [facility] Stop: 08/20/23 09:44 Furosemide (Furosemide 20 Mg Tablet) 20 mg PO DAILY.8A [facility] Stop: 08/20/23 07:59 Last Admin: 08/20/22 09:26 Dose: 20 mg Glucose (Dextrose 40% Gel 15 Gm Tube) 0 gm PO PRN PRN PRN Reason: Hypoglycemia Stop: 08/20/23 03:40 Ampicillin Sodium/Sulbactam Sodium (Unasyn) 3 gm in 100 mls @ 200 mls/hr IV Q6HSCH Last Admin: 08/20/22 09:27 Dose: 200 mls/hr Levetiracetam (Levetiracetam 250 Mg Tablet) 750 mg PO BID [facility] Stop: 08/20/23 08:59 Last Admin: 08/20/22 08:24 Dose: 750 mg Levothyroxine Sodium (Levothyroxine 75 Mcg Tablet) 75 mcg PO DAILY@0630 [facility] Stop: 08/20/23 06:29 Last Admin: 08/20/22 06:15 Dose: 75 mcg Lisinopril (Lisinopril 40 Mg Tablet) 40 mg PO DAILY [facility] Stop: 08/20/23 08:59 Last Admin: 08/20/22 08:25 Dose: 40 mg Metformin HCl (Metformin 500 Mg Tablet) 1,000 mg PO BID.WITH.MEALS [facility] Stop: 08/20/23 07:59 Last Admin: 08/20/22 08:25 Dose: 1,000 mg Pantoprazole Sodium (Pantoprazole 40 Mg Tablet.Dr) 40 mg PO DAILY [facility] Stop: 08/21/23 08:59 Pregabalin (Pregabalin 150 Mg Capsule) 150 mg PO HS [facility] Stop: 02/16/23 03:44 Last Admin: 08/20/22 04:09 Dose: 150 mg Quetiapine Fumarate (Quetiapine Fumarate 200 Mg Tablet) 800 mg PO HS [facility] Stop: 08/20/23 03:59 Last Admin: 08/20/22 04:09 Dose: 800 mg Saccharomyces Boulardii (Saccharomyces Boulardii 250 Mg Capsule) 250 mg PO BID.WITH.MEALS [facility] Stop: 08/20/23 07:59 Last Admin: 08/20/22 08:26 [...] % (Auto) 64.7 Lymph % (Auto) 27.3 [place] % (Auto) 6.0 Eos % (Auto) 1.3 Baso % (Auto) 0.7 Nucleat RBC Rel Count 0.0 Neut # (Auto) 5.5 Lymph # (Auto) 2.3 [place] # (Auto) 0.5 Eos # (Auto) 0.1 [...] Color Urine Appearance Urine pH Ur Specific [place] Urine Protein Urine Glucose (UA) Urine Ketones [...] MPV Neut % (Auto) Lymph % (Auto) [place] % (Auto) Eos % (Auto) Baso % (Auto) Nucleat RBC Rel Count Neut # (Auto) Lymph # (Auto) [place] # (Auto) Eos # (Auto) Baso # [...] Appearance Clear Urine pH 6.5 Ur Specific [place] 1.017 Urine Protein 100 H Urine Glucose [...] % (Auto) 68.9 Lymph % (Auto) 22.6 [place] % (Auto) 6.9 Eos % (Auto) 1.1 Baso % (Auto) 0.5 Nucleat RBC Rel Count 0.2 Neut # (Auto) 6.2 Lymph # (Auto) 2.0 [place] # (Auto) 0.6 Eos # (Auto) 0.1 [...] Color Urine Appearance Urine pH Ur Specific [place] Urine Protein Urine Glucose (UA) Urine Ketones [...] MPV Neut % (Auto) Lymph % (Auto) [place] % (Auto) Eos % (Auto) Baso % (Auto) Nucleat RBC Rel Count Neut # (Auto) Lymph # (Auto) [place] # (Auto) Eos # (Auto) Baso # [...] Color Urine Appearance Urine pH Ur Specific [place] Urine Protein Urine Glucose (UA) Urine Ketones [...] MPV Neut % (Auto) Lymph % (Auto) [place] % (Auto) Eos % (Auto) Baso % (Auto) Nucleat RBC Rel Count Neut # (Auto) Lymph # (Auto) [place] # (Auto) Eos # (Auto) Baso # [...] Color Urine Appearance Urine pH Ur Specific [place] Urine Protein Urine Glucose (UA) Urine Ketones [...] <Electronically signed by MD Lawrence Kim> 08/20/22 102 [facility] Work Phone: [phone] Progress note Author Jeana Martini [facility] August 20, 2022 9:48am Note Date/Time August 20, 2022 9:4 8am [facility] [address] [place] [address] Hospitalist Progress Note Signed Patient: Addie Jean Baptiste MR#: [id number] : 1975 Acct:[id number] Age/Sex: 47 / F Adm Date: 3 Loc: 3T Room: [address] [place] [address] Type: ADM INOo Attending Dr: Jeana Martini [...] place, time and person, morbidly obese HEENT: [place] conjunctiva and NL buccal mucosa Neck: Supple, [...] <Electronically signed by Jeana Martini MD> 08/20/2248 [facility] Work Phone: [phone]) [phone] History and physical note Author Ezekiel Mathew [facility] August 20, 2022 3:56am Note Date/Time August 20, 2022 3:5 6am [facility] [address] [place] [address] Hospitalist H&P Signed Patient: Addie Jean Baptiste MR#: [id number] : 1975 Acct:[id number] Age/Sex: 47 / F Adm Date: 3 Loc: Room: [address] [place] [address] Type: ADM INOo Attending Dr: Ezekiel Mathew [...] % (Auto) 27.3 % (.) 08/20/22 00:19 [place] % (Auto) 6.0 % (.) 08/20/22 00:19 Eos % (Auto) 1.3 % (.) 08/20/22 00:19 Baso % (Auto) 0.7 % (.) 08/20/22 00:19 Nucleat RBC Rel Count 0.0 /100 WBC (0-0.5) 08/20/22 00:19 Neut # (Auto) 5.5 x10E3/uL (1.8-7.7) 08/20/22 00:19 Lymph # (Auto) 2.3 x10E3/uL (1.00-4.8) 08/20/22 00:19 [place] # (Auto) 0.5 x10E3/uL (0.0-0.8) 08/20/22 00:19 [...] pH 6.5 (5.0-9.0) 08/20/22 01:07 Ur Specific [place] 1.017 (1.001-1.030) 08/20/22 01:07 Urine Protein 100 [...] 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 Since his partner Dr. [...] signed by Ezekiel Mathew DO> 08/20/22 0356 [facility] Work Phone: [phone] Hospital Discharge instructions Patient Education 08/19/2022 20:32:56 [...] and water are not available, 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 ?Change your dressing as told by your [...] antibiotic even if your condition improves. Take fppw-ony-qfwikxx and prescription medicines only as told by [...] 02/17/2009 Document Revised: 08/29/2019 Document Reviewed: 11/25/2016 [employer] Patient Education 2020 [employer]. 08/19/2022 20:32:56 Type 2 Diabetes Mellitus, Self Care, Adult, Iolt-qw-Omdb Type 2 Diabetes Mellitus, Self Care, Adult [...] oil, and canola oil. Meet with a seafood harvester (dietitian). He or she can help you [...] for cuts, bruises, redness, blisters, or sores. [place] your teeth and gums two times a day. Floss one or more times a day. Go to the dentist one or more times every 6 months. Stay at a healthy weight. General instructions Take srxn-ghw-tmirysf and prescription medicines only as told by your doctor. Share your diabetes care plan with: ?Your work or school. ?People you live with. Carry a card or wear jewelry that says you have diabetes. Keep all follow-up visits as told by your doctor. This is important. Questions to ask your doctor Do I need to meet with a tobacco educator? Where can I find a support group for people with diabetes? Where to find more information To learn more about diabetes, visit: [place] Diabetes Association: www.diabetes.org [place] Association of Diabetes Educators: www.diabeteseducator.org Summary When [...] 09/01/2016 Document Revised: 11/01/2018 Document Reviewed: 06/13/2016 [employer] Patient Education 2020 [employer]. Follow Up Care 08/19/2022 17:03:41 With:[facility] Address: [address] [place] [address] Business (1) When:08/22/2022 20:16:55 [facility]03-28-2023 Evaluation + Plan note Diagnostic Tests Pending * Blood Culture Charcoal 08/19/22 * Blood Culture Charcoal 08/19/22 * UA With Cult Reflex 08/19/22 * Wound Culture 08/19/22 Future Scheduled Tests Laboratory* Fecal WBC Lactoferrin 10/30/21 * Enteric Panel by PCR 10/30/21 Radiology* NM Myocardial Spect Rest/Stress 1 Day 12/16/21 * Echo Transthoracic Complete 09/03/21 [facility]01-09-2023 Hospital Discharge instructions Patient Education 06/02/2022 20:35:11 Seizure, Adult, Lxtl-zn-Hfzb Seizure, Adult A seizure is a sudden [...] Follow these instructions at home: Medicines Take ftbf-awd-zywuctc and prescription medicines only as told by [...] [place] ask your local DMV (department of [employer]) when you can drive. Get plenty of [...] 10/27/2008 Document Revised: 07/29/2019 Document Reviewed: 07/29/2019 [employer] Patient Education 2020 [employer] 06/02/2022 20:35:11 Abdominal Pain, Adult, Ckhg-fi-Ggly Abdominal Pain, Adult Many things can cause belly (abdominal) pain. Most times, belly pain is not dangerous. Many cases of belly pain can be watched and treated at home. Sometimes, though, belly pain is serious. Your doctor will try to find the cause of your belly pain. Follow these instructions at home: Medicines Take eghs-doi-jawmhyd and prescription medicines only as told by [...] your belly pain for any changes. Take irbg-bxf-yficgnr and prescription medicines only as told by [...] 10/27/2008 Document Revised: 09/19/2019 Document Reviewed: 09/19/2019 [employer] Patient Education 2020 [employer]. Follow Up Care 06/02/2022 15:49:02 With:[facility] Address: [address] [place] [address] ELEN Higuera [address] Business (1) When:06/05/2022 20:05:40 Comments:Take your medications as prescribed. Please follow-up with your primary care doctor in addition to your neurologist for further evaluation management. Please return to ED for any new or worsening symptoms. [facility]01-09-2023 Evaluation + Plan noteExtracted from: [...] Day 12/16/21 * Echo Transthoracic Complete 09/03/21 [facility]12-22-2022 Hospital Discharge instructions Patient Education 05/15/2022 16:59:08 Paronychia, Hnic-ru-Msws Paronychia Paronychia is an infection of the [...] cannot use soap and water, 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 ?Change your bandage as told by your doctor. If you had a fluid-filled bump and your doctor drained it, check the area every day for signs of infection. Check for: ?Redness, swelling, or pain. ?Fluid or blood. ?Warmth. ?Pus or a bad smell. Medicines Take yvsv-ddp-wvzwgic and prescription medicines only as told by [...] ?Wear gloves if your hands might touch social research assistant or chemicals. ?Avoid injuring your nails or [...] 04/29/2010 Document Revised: 05/28/2018 Document Reviewed: 05/24/2018 [employer] Patient Education 2020 [employer]. Follow Up Care 05/15/2022 16:12:54 With:[facility] Address: [address] [place] [address] Business (1) When:Within 3 Day(s) [facility]12-22-2022 Evaluation + Plan noteExtracted from: Title:ED Note Author:Heather Ortega PA-C [place] e:05/15/22 1. Paronychia, finger (L03.0 19: Cellulitis of unspecified finger) Orders: sulfamethoxazole-trimethoprim, 1 tab(s), Oral, BID for 7 day(s), 14 tab(s), Refill(s) 0, [facility], 157, cm, 05/15/22 16:23:00 EST, [...] Day 12/16/21 * Echo Transthoracic Complete 09/03/21 [facility]11-16-2022 Evaluation + Plan noteExtracted from: [...] QID, PRN ergocalciferol 50,000 intl units Cap, 51143 International_Unit= 1 cap(s), Oral, q7day Keppra 250 [...] SAMUEL Jaimes Within 2 to 4 weeks [address] [place] [address]- Additional Instructions: Radha Dias DO Within 2 to 4 days [address] [place] [address]- Additional Instructions: Diabetes Mellitus and Nutrition, Adult [...] Oral, Daily ergocalciferol 50,000 intl units Cap, 67889 International_Unit= 1 cap(s), Oral, q7day insulin glargine [...] MD, NEU Within 2 to 4 weeks [address] [place] [address]- Additional Instructions: Radha Dias DO Within 2 to 4 days [address] [place] [address]- Additional Instructions: Diabetes Mellitus and Nutrition, Adult Diabetes Mellitus and Foot Care Diabetes Mellitus and Exercise Addendum by Kinza STEVENS [facility] on April 08, 2022 13:12:55 [...] walks with FWW Addendum by Kinza STEVENS [facility] on April 08, 2022 14:09:08 [...] symptom onset she was evaluated at [facility] and had a stroke work-up, results of which are unclear. CT head here does not show any obvious areas of subacute ischemia. Could also consider lumbar radiculopathy as a potential explanation given her known lumbar spondylosis. Nondermatomal sensory loss and nonmyotomal pattern of weakness. Very questionable effort. 3. Chronic diabetic polyneuropathy. PLAN: 1. Obtaining hospital records from [facility] to ensure they looked into stroke as [...] spine MR imaging. She follows with Dr. Lwo. 8. EEG not needed here at this time. No concern for ongoing or subclinical seizure activity. Multiple previous abnormal EEGs that were abnormal. An additional EEG will not change control manager. 1. DKA (diabetic ketoacidosis) (E11.10: Type 2 [...] symptom onset she was evaluated at [facility] and had a stroke work-up, results of which are unclear. CT head here does not show any obvious areas of subacute ischemia. Could also consider lumbar radiculopathy as a potential explanation given her known lumbar spondylosis. Nondermatomal sensory loss and nonmyotomal pattern of weakness. 3. Chronic diabetic polyneuropathy. PLAN: 1. Obtaining hospital records from [facility] 2. Continue the Keppra at 750 mg [...] were abnormal. An additional EEG will not change control manager. 1. DKA (diabetic ketoacidosis) (E11.10: Type 2 [...] 2 diabetes mellitus with ketoacidosis without coma) [place] to be mild versus nonketotic hyperosmolar state [...] Patient states she was hospitalized at [facility] with right leg weakness and numbness 3 weeks ago. Curiously she states she had been on aspirin previously and there was no change in her therapy. We will obtain records from [facility] in regards to her recent hospitalization. Continue [...] she did have an ICD placed at [facility] in 2019 denies any recent discharge [...] Level myStation Chronic Obstructive Pulmonary Disease COPD (ADRIANE:[id number]) Notify Provider Vital Signs Notify Provider Vital [...] Day 12/16/21 * Echo Transthoracic Complete 09/03/21 [facility]11-14-2022 Hospital Discharge instructions Patient Education [...] that you work with a diet and nutrition technician (dietitian) tomake a meal plan that is [...] care provider. Work with a counselor or tobacco educator to identify strategies to manage stress and any emotional and social challenges. Questions to ask a health care provider Do I need to meet with a tobacco educator? Do I need to meet with a dietitian? What number can I call if I have questions? When are the best times to check my blood glucose? Where to find more information: [place] Diabetes Association: diabetes.org Academy of Nutrition and Dietetics: www.eatright.org National [place] of Diabetes and Digestive and Kidney Diseases (NIH): www.niddk.nih.gov Summary A healthy meal plan will help you control your blood glucose and maintain a healthy lifestyle. Working with a diet and nutrition technician (dietitian) can help you make a meal [...] 02/05/2006 Document Revised: 04/23/2018 Document Reviewed: 06/15/2017 [employer] Patient Education 2020 [employer]. 04/07/2022 07:24:34 Diabetes Mellitus and Foot Care Diabetes Mellitus and Foot Care Foot care is an important part of your health, especially when you have diabetes. Diabetes may cause you to have problems because of poor blood flow (circulation) to your feet and legs, which can cause your skin to: Become thinner and tobacco drier operator. Break more easily. Heal more [...] 05/08/2001 Document Revised: 06/23/2018 Document Reviewed: 06/12/2017 [employer] Patient Education 2020 [employer]. 04/07/2022 07:24:32 Diabetes Mellitus and Exercise Diabetes [...] plan? Your health care provider or certified physical therapist assistant can help you make a plan for [...] stress. Your health care provider or certified physical therapist assistant can help you make a plan for [...] 07/31/2004 Document Revised: 12/03/2017 Document Reviewed: 10/20/2016 [employer] Patient Education 2020 [employer]. Follow Up Care 04/06/2022 20:30:13 With:Polo Bo MD, NEU Address: [address] [place] [address] [place] [id number] [facility] (1) When:05/01/2022 12:40:00 With:Radha Dias DO Address: [address] , [address] [address]- When:04/23/2022 12:45:00 [facility]10-06-2022 Hospital Discharge instructions Patient Education 02/27/2022 17:35:47 Nonspecific Chest Pain, Adult, Xrkn-kh-Uwno Nonspecific Chest Pain Chest pain can be [...] Follow these instructions at home: Medicines Take fpkp-jzr-tuwgrci and prescription medicines only as told by [...] ?Eating a heart-healthy diet. A diet and nutrition technician (dietitian) can help you to learn healthy [...] 10/27/2008 Document Revised: 11/11/2018 Document Reviewed: 11/11/2018 [employer] Patient Education 2020 [employer] 02/27/2022 17:35:47 Seizure, Adult, Gvjc-hx-Tfrz Seizure, Adult A seizure is a sudden [...] Follow these instructions at home: Medicines Take ftom-hha-yuykhmx and prescription medicines only as told by [...] [place] ask your local DMV (department of [employer]) when you can drive. Get plenty of [...] 10/27/2008 Document Revised: 07/29/2019 Document Reviewed: 07/29/2019 [employer] Patient Education 2019 [employer]. Follow Up Care 02/27/2022 11:56:29 With:[facility] with [facility] Address:Unknown When: Unknown With:Radha Dias Address: [address], [facility] C, [address] [phone] Business (1) When:Within 3 Day(s) [facility]10-06-2022 Evaluation + Plan noteExtracted from: [...] BID, # 60 tab(s), Refills(s) 0, Pharmacy: [facility], 157, cm, 02/27/22 12:02:00 EDT, [...] Day 12/16/21 * Echo Transthoracic Complete 09/03/21 [facility]09-30-2022 Hospital Discharge instructions Patient Education [...] and water are not available, 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 Keep the wound clean and dry. If [...] falls off the skin. General instructions Take xhvq-gen-lsqrhgv and prescription medicines only as told by [...] 05/11/2006 Document Revised: 07/09/2018 Document Reviewed: 05/31/2018 [employer] Patient Education 2020 [employer]. Follow Up Care 02/21/2022 14:51:18 With:Radha Dias Address: [address], [address] [address]- Business (1) When:02/24/2022 15:15:47 Comments:Follow-up with your primary care provider in 3 to 5 days. If symptoms worsen, do not improve, or new symptoms arise please report back to emergency department for further evaluation. Sutures to be removed in 10 days. [facility]09-02-2022 Hospital Discharge instructions Patient Education [...] water added (diluted fruit juice). Eat bland, camj-me-cnykvn foods in small amounts as you are able. These foods include bananas, applesauce, rice, lean meats, toast, and crackers. Avoid fluids that contain a lot of sugar or caffeine, such as energy drinks, sports drinks, and soda. Avoid alcohol. Avoid spicy or fatty foods. General instructions Take pbbe-wsk-txobmpt and prescription medicines only as told by your health care provider. Drink enough fluid to keep your urine pale yellow. Wash your hands often using soap and water. If soap and water are not available, 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 Make sure that all people in your [...] eating and drinking to prevent dehydration. Take rwpi-rno-jgwempx and prescription medicines only as told by [...] 05/11/2006 Document Revised: 09/02/2019 Document Reviewed: 10/19/2018 [employer] Patient Education 2020 [employer]. 01/24/2022 14:32:12 Diarrhea, Adult Diarrhea, Adult Diarrhea [...] oral rehydration solution (ORS). This is an pvtq-bvk-lqvzmfy medicine that helps return your body to [...] drinks, sports drinks, and soda. Eat bland, mevl-fp-jqtajc foods in small amounts as you are able. These foods include bananas, applesauce, rice, lean meats, toast, and crackers. Avoid alcohol. Avoid spicy or fatty foods. Medicines Take mlqh-gls-yuwbmcx and prescription medicines only as told by your health care provider. If you were prescribed an antibiotic medicine, take it as told by your health care provider. Do notstop using the antibiotic even if you start to feel better. General instructions Wash your hands often using soap and water. If soap and water are not available, use a hand roofing tile sorter. Others in the household should wash their [...] soap and water are not available, usehand roofing tile sorter. Contact a health care provider if your diarrhea gets worse or you have new symptoms. Get help right away if you have signs of dehydration. This information is not intended to replace advice given to you by your health care provider. Make sure you discuss any questions you have with your health care provider. Document Released: 05/01/2003 Document Revised: 09/27/2019 Document Reviewed: 10/15/2018 [employer] Patient Education 2020 [employer]. 01/24/2022 14:32:12 Acute Pain, Adult Acute Pain, [...] Follow these instructions at home: Medicines Take wukm-dyp-hdhmscp and prescription medicines only as told by [...] pain is severe. ?Do not take other wrgv-faw-ujnqrsm pain medicines in addition to prescription pain [...] grains, and fresh fruits and vegetables. ?Take yhra-hau-zrqnpzu or prescription medicines. ?Limit foods that are [...] or you are no longer ill. Take utcj-osr-vbuqgby and prescription medicines only as told by [...] 05/25/2016 Document Revised: 09/26/2019 Document Reviewed: 09/26/2019 [employer] Patient Education 2019 [employer]. Follow Up Care 01/24/2022 10:45:45 With:Radha Dias Address: [address], [address], [facility] [address] [place] [address]- [facility] (1) When:01/27/2022 14:08:11 [facility]08-18-2022 Hospital Discharge instructions Patient Education [...] exercise. Managing pain, stiffness, and swelling Take ztyd-rlx-eugfodi and prescription medicines only as told by [...] 05/11/2006 Document Revised: 04/23/2018 Document Reviewed: 06/10/2017 [employer] Patient Education 2020 [employer] 01/09/2022 17:03:20 Chest Wall Pain Chest [...] are safe for you. General instructions Take srgu-gkn-qcngjgw and prescription medicines only as told by [...] 05/11/2006 Document Revised: 11/11/2018 Document Reviewed: 11/11/2018 [employer] Patient Education 2020 [employer]. Follow Up Care 01/09/2022 12:14:58 With:Kirk Abbott Address: [address] [place] [address]- Business (1) When:1 to 2 weeks Comments:Call [...] scheduling to schedule a 2-day stress test. [employer] evaluated you during your hospital stay and they cleared you for discharge. Please follow-up with global sourcing manager after stress test is complete. Please do not delay the stress test any further. Keep taking the medications as you are taking as we are not changing anything.Dr. [facility] Gonzalez[facility] Evaluation + Plan noteExtracted from: Title:Consult Note [...] Kirk Abbott Within 1 to [address] [place] [id number] [facility] (1) Additional Instructions: Call for followup appointment [...] scheduling to schedule a 2-day stress test. [employer] evaluated you during your hospital stay and they cleared you for discharge. Please follow-up with global sourcing manager after stress test is complete. Please do not delay the stress test any further. Keep taking the medications as you are taking as we are not changing anything. Dr. Juan Gonzalez Hospitalist at [facility] Chest Wall Pain Extracted from: [...] made to ensure accuracy, however, inadvertently computerized machine brusher mistakes may be present. Dr. Juan Gonzalez Hospitalist at [facility] Extracted from: Title:ED Note Author:Jose Miguel Burciaga, [...] Day 12/16/21 * Echo Transthoracic Complete 09/03/21 [facility]07-21-2022 Hospital Discharge instructions Patient Education [...] 06/18/2005 Document Revised: 04/23/2018 Document Reviewed: 08/06/2017 [employer] Patient Education 2020 [employer]. 12/12/2021 17:14:19 BMI for Adults BMI for [...] height. This can be done either in [place] ([place] or metric measurements. Note that charts are available to help you find your BMI quickly and easily without having to do these calculations yourself. To calculate your BMI in [place] ([place] measurements, your health care provider will: [...] medical problems. BMI can be measured using Latvian measurements or metric measurements. To interpret your [...] 01/20/2005 Document Revised: 04/23/2018 Document Reviewed: 03/24/2018 [employer] Patient Education 2020 [employer]. 12/12/2021 17:04:18 Lactose Intolerance, Adult Lactose Intolerance, [...] you eat milk products. Lactase tablets are odkq-uln-glvrkpe medicines that help to improve lactose digestion. [...] contain: ?Lactose. ?Milk solids. ?Casein. ?Whey. Take jxic-akq-lyhkhdw and prescription medicines (including lactase tablets) only as told by your health care provider. If you stop eating and drinking dairy products (eliminate dairy from your diet), make sure to get enough protein, calcium, and vitamin D from other foods. Work with your health care provider or a diet and nutrition technician (dietitian) to make sure you get enough [...] 05/11/2006 Document Revised: 04/23/2018 Document Reviewed: 12/25/2017 [employer] Patient Education 2020 [employer]. Follow Up Care 12/12/2021 12:11:17 With:Breanna Gu CNP Address: When: only if needed [facility] 07-17-2022 Hospital Discharge instructions Patient [...] hard liquor (44 mL). General instructions Take oold-gcl-kpdwgtv and prescription medicines only as told by your health care provider. Practice techniques for relaxation and managing anxiety at times you are not challenged by social anxiety. Return to social activities using techniques you have learned, as you feel ready to do so. Avoid caffeine and certain loiw-wtg-yrsdvzx cold medicines. These may make you feel worse. Ask yourpharmacists which medicines to avoid. Keep all follow-up visits as told by your health care provider. This is important. Where to find more information [employer] [place] [facility] [employer] (AVA): https://www.ava.org Social Anxiety [...] 04/09/2006 Document Revised: 10/12/2019 Document Reviewed: 10/12/2019 [employer] Patient Education 2019 [employer]. 12/08/2021 14:29:40 Seizure, Adult Seizure, Adult A [...] Follow these instructions at home: Medicines Take pozh-rvc-xsbefpj and prescription medicines only as told by [...] medicines are used to treat seizures. Take bjaw-nur-mxscafd and prescription medicines only astold by your health care provider. This information is not intended to replace advice given to you by your health care provider. Make sure you discuss any questions you have with your health care provider. Document Released: 05/08/2001 Document Revised: 07/29/2019 Document Reviewed: 07/29/2019 [employer] Patient Education 2019 [employer]. Follow Up Care 12/08/2021 09:53:20 With:Polo Bo Address: [address] [place] [address]- Business (1) When:12/11/2021 13:49:13 Comments:If you do not have a neurologist, follow-up with Dr. Bo. With:Breanna Gu Address: [address] [place] [address] [address], [place] [phone] Business (1) When:12/11/2021 13:48:53 Comments:Follow-up with your primary care provider in 3 to 5 days. If symptoms worsen, do not improve, or new symptoms arise please report back to emergency department for further evaluation. Follow-up with your neurologist immediately. [facility]06-15-2022 Evaluation + Plan noteExtracted from: [...] Date:11/14/2021 10:00:00 AM Scheduled Provider:Breanna Gu CNP Location:[facility] Appointment Type: ER/Hospital Follow Up Appointment Date:11/14/2021 12:15:00 PM Scheduled Provider: [facility] App[facility] Type:NM Myocard Spect Multi Rest/Stress-Res Appointment Date:11/14/2021 01:15:00 PM Scheduled Provider: [facility] Appoint[facility] Type:NM Myocard Spect Multi Rest/Stress - R Appointment Date:11/14/2021 01:45:00 PM Scheduled Provider: [facility] Appointment Type:NM Myocard Spect Multi Rest/Stress-Str Appointment Date:11/14/2021 02:45:00 PM Scheduled Provider: [facility] Appointment Type:NM Myocar Spect Multi Rest/Stress - St Appointment Date:11/20/2021 11:45:00 AM Scheduled Provider:Yuriy Fraser MD [facility] Type:Cardiology Follow Up (FT) Appointment Date:01/01/2022 02:00:00 PM Scheduled Provider:Breanna Gu CNP Location:[facility] Appointment Type: Open Future Scheduled Tests Laboratory* Fecal WBC Lactoferrin 10/30/21 * HgbA1c 07/29/21 * Enteric Panel by PCR 10/30/21 * Thyroid Stimulating Hormone 07/29/21 Radiology* NM Myocardial Spect Rest/Stress 1 Day 11/14/21 * Echo Transthoracic Complete 09/03/21 [facility]06-15-2022 Hospital Discharge instructions Patient Education 11/06/2021 11:33:32 Urinary Tract Infection, Adult, Dyea-un-Gbyb Urinary Tract Infection, Adult A urinary tract [...] Follow these instructions at home: Medicines Take fsoe-igk-wtozwud and prescription medicines only as told by [...] 10/27/2008 Document Revised: 04/28/2019 Document Reviewed: 11/18/2018 [employer] Patient Education 2020 [employer]. 11/06/2021 11:33:32 Urinary Tract Infection, Adult, Ppkr-uk-Obde Urinary Tract Infection, Adult A urinary tract [...] Follow these instructions at home: Medicines Take itbm-zzx-qqxixpg and prescription medicines only as told by [...] 10/27/2008 Document Revised: 04/28/2019 Document Reviewed: 11/18/2018 [employer] Patient Education 2020 [employer]. 11/06/2021 11:33:28 Antibiotic Medicine, Adult, Lzmb-fw-Pwit Antibiotic Medicine, Adult Antibiotic medicines treat infections [...] 02/17/2009 Document Revised: 06/17/2019 Document Reviewed: 05/13/2017 [employer] Patient Education 2020 [employer]. 11/06/2021 11:33:28 Antibiotic Medicine, Adult, Psja-pv-Qcvu Antibiotic Medicine, Adult Antibiotic medicines treat infections [...] 02/17/2009 Document Revised: 06/17/2019 Document Reviewed: 05/13/2017 [employer] Patient Education 2020 [employer]. Follow Up Care 11/04/2021 11:24:24 With:Breanna Gu Address:Unknown When: Unknown [facility]06-08-2022 Evaluation + Plan note Future Scheduled Tests Laboratory* Fecal WBC Lactoferrin 10/30/21 * HgbA1c 07/29/21 * Enteric Panel by PCR 10/30/21 * Thyroid Stimulating Hormone 07/29/21 Radiology* NM Myocardial Spect Rest/Stress 1 Day 12/16/21 * Echo Transthoracic Complete 09/03/21 [facility] [id number] Evaluation + Plan note Future Scheduled Tests Laboratory* Fecal WBC Lactoferrin 10/30/21 * Enteric Panel by PCR 10/30/21 Radiology* NM Myocardial Spect Rest/Stress 1 Day 12/16/21 * Echo Transthoracic Complete 09/03/21 [facility]05-18-2022 Hospital Discharge instructions Patient Education [...] Follow these instructions at home: Medicines Take lrmw-dzh-fhahbme and prescription medicines only as told by [...] and water are not available, 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 Avoid contact with people who have cold [...] 06/18/2005 Document Revised: 03/24/2019 Document Reviewed: 10/29/2016 [employer] Patient Education 2020 [employer]. Follow Up Care 10/09/2021 15:26:41 With:Breanna Gu [...] legs, or any new or worsening symptoms. [facility]05-09-2022 Hospital Discharge instructions Patient Education [...] and how much exercise you get. Take tqxl-ewc-hnfaogf and prescription medicines only as told by [...] 06/18/2005 Document Revised: 01/13/2019 Document Reviewed: 01/13/2019 [employer] Patient Education 2020 [employer] 09/30/2021 14:51:20 Hypothyroidism Hypothyroidism Hypothyroidism is [...] away. Follow these instructions at home: Take qhmj-uzn-pyhtnow and prescription medicines only as told by [...] 05/11/2006 Document Revised: 04/23/2018 Document Reviewed: 04/21/2018 [employer] Patient Education 2020 [employer]. 09/30/2021 14:51:16 Preventing Diabetes Mellitus Complications Preventing [...] lead to tooth loss. To prevent this: [place] your teeth twice a day. Floss at [...] 01/27/2012 Document Revised: 08/09/2018 Document Reviewed: 02/07/2017 [employer] Patient Education 2020 [employer]. 09/30/2021 14:51:12 General Anesthesia, Adult General Anesthesia, [...] including vitamins, herbs, eye drops, creams, and qjdf-pks-rnwwpff medicines. Any problems you or family members [...] provider tells you to take them. Taking sjuu-bbz-botdzpd medicines, vitamins, herbs, and supplements. Do not [...] 08/17/2008 Document Revised: 09/28/2018 Document Reviewed: 12/25/2017 [employer] Patient Education 2020 [employer]. [facility] 01-21-2022 Evaluation note* Encounter Date [...] Patient care instructions given in writting by [facility] Care At Home document. [employer] Other Consult note Author Lawrence Kim [facility] August 20, 2022 10:27am Note Date/Time August 20, 2022 10: 26am [facility] [address] [place] [address] Infect. Disease Consult Note Signed Patient: Addie Jean Baptiste MR#: [id number] : 1975 Acct:[id number] Age/Sex: 47 / F Adm Date: 3 Loc: 3T Room: [address] [place] [address] Type: ADM INOo Attending Dr: Jeana Martini [...] me she was hospitalized in July at [facility] for 4 days for this. She apparently [...] negative unless noted below or in HPI [facility] Attestation Statement: The following information was [...] 5 Mg Tablet) 5 mg PO DAILY [facility] Stop: 08/20/23 09:39 Clonidine HCl (Clonidine 0.1 Mg Tablet) 0.1 mg PO Q4H PRN PRN Reason: Hypertension Stop: 08/20/23 03:40 Dextrose (Dextrose 50% In Water 25 Gm/50 Ml Syringe) 0 gm IV-PUSH PRN PRN PRN Reason: Hypoglycemia Stop: 08/20/23 03:40 Enoxaparin Sodium (Enoxaparin 40 Mg/0.4 Ml Syringe) 40 mg SUBCUT DAILY@1000 [facility] Stop: 08/20/23 09:59 Last Admin: 08/20/22 09:29 Dose: 40 mg Ergocalciferol (Ergocalciferol 1,250 Mcg (50,000 Units) Capsule) 1,250 mcg PO Q7D [facility] Stop: 08/20/23 09:44 Furosemide (Furosemide 20 Mg Tablet) 20 mg PO DAILY.8A [facility] Stop: 08/20/23 07:59 Last Admin: 08/20/22 09:26 Dose: 20 mg Glucose (Dextrose 40% Gel 15 Gm Tube) 0 gm PO PRN PRN PRN Reason: Hypoglycemia Stop: 08/20/23 03:40 Ampicillin Sodium/Sulbactam Sodium (Unasyn) 3 gm in 100 mls @ 200 mls/hr IV Q6HSCH Last Admin: 08/20/22 09:27 Dose: 200 mls/hr Levetiracetam (Levetiracetam 250 Mg Tablet) 750 mg PO BID [facility] Stop: 08/20/23 08:59 Last Admin: 08/20/22 08:24 Dose: 750 mg Levothyroxine Sodium (Levothyroxine 75 Mcg Tablet) 75 mcg PO DAILY@0630 [facility] Stop: 08/20/23 06:29 Last Admin: 08/20/22 06:15 Dose: 75 mcg Lisinopril (Lisinopril 40 Mg Tablet) 40 mg PO DAILY [facility] Stop: 08/20/23 08:59 Last Admin: 08/20/22 08:25 Dose: 40 mg Metformin HCl (Metformin 500 Mg Tablet) 1,000 mg PO BID.WITH.MEALS [facility] Stop: 08/20/23 07:59 Last Admin: 08/20/22 08:25 Dose: 1,000 mg Pantoprazole Sodium (Pantoprazole 40 Mg Tablet.Dr) 40 mg PO DAILY [facility] Stop: 08/21/23 08:59 Pregabalin (Pregabalin 150 Mg Capsule) 150 mg PO HS [facility] Stop: 02/16/23 03:44 Last Admin: 08/20/22 04:09 Dose: 150 mg Quetiapine Fumarate (Quetiapine Fumarate 200 Mg Tablet) 800 mg PO HS [facility] Stop: 08/20/23 03:59 Last Admin: 08/20/22 04:09 Dose: 800 mg Saccharomyces Boulardii (Saccharomyces Boulardii 250 Mg Capsule) 250 mg PO BID.WITH.MEALS [facility] Stop: 08/20/23 07:59 Last Admin: 08/20/22 08:26 [...] % (Auto) 64.7 Lymph % (Auto) 27.3 [place] % (Auto) 6.0 Eos % (Auto) 1.3 Baso % (Auto) 0.7 Nucleat RBC Rel Count 0.0 Neut # (Auto) 5.5 Lymph # (Auto) 2.3 [place] # (Auto) 0.5 Eos # (Auto) 0.1 [...] Color Urine Appearance Urine pH Ur Specific [place] Urine Protein Urine Glucose (UA) Urine Ketones [...] MPV Neut % (Auto) Lymph % (Auto) [place] % (Auto) Eos % (Auto) Baso % (Auto) Nucleat RBC Rel Count Neut # (Auto) Lymph # (Auto) [place] # (Auto) Eos # (Auto) Baso # [...] Appearance Clear Urine pH 6.5 Ur Specific [place] 1.017 Urine Protein 100 H Urine Glucose [...] % (Auto) 68.9 Lymph % (Auto) 22.6 [place] % (Auto) 6.9 Eos % (Auto) 1.1 Baso % (Auto) 0.5 Nucleat RBC Rel Count 0.2 Neut # (Auto) 6.2 Lymph # (Auto) 2.0 [place] # (Auto) 0.6 Eos # (Auto) 0.1 [...] Color Urine Appearance Urine pH Ur Specific [place] Urine Protein Urine Glucose (UA) Urine Ketones [...] MPV Neut % (Auto) Lymph % (Auto) [place] % (Auto) Eos % (Auto) Baso % (Auto) Nucleat RBC Rel Count Neut # (Auto) Lymph # (Auto) [place] # (Auto) Eos # (Auto) Baso # [...] Color Urine Appearance Urine pH Ur Specific [place] Urine Protein Urine Glucose (UA) Urine Ketones [...] MPV Neut % (Auto) Lymph % (Auto) [place] % (Auto) Eos % (Auto) Baso % (Auto) Nucleat RBC Rel Count Neut # (Auto) Lymph # (Auto) [place] # (Auto) Eos # (Auto) Baso # [...] Color Urine Appearance Urine pH Ur Specific [place] Urine Protein Urine Glucose (UA) Urine Ketones [...] <Electronically signed by MD Lawrence Kim> 08/20/22 1022 [facility] Work Phone: Consult note Author Swapnil Castillo [facility] August 20, 2022 1:14pm Note Date/Time August 20, 2022 1:1 3pm [facility] [address] [place] [address] Podiatry Consult Note Signed Patient: Addie Jean Baptiste MR#: [id number] : 1975 Acct:[id number] Age/Sex: 47 / F Adm Date: 3 Loc: Room: [address] [place] [address] Type: ADM IN Attending Dr: Jeana Martini [...] <Electronically signed by LUPE Castillo> 08/20/22 1314 [facility] Work Phone: Consult note Author Shameka Romero [facility] August 21, 2022 4:02pm Note Date/Time August 21, 2022 4:0 0pm [facility] [address] [place] [address] Vascular Surgery Consult Note Signed Patient: Addie Jean Baptiste MR#: [id number] : 1975 Acct:[id number] Age/Sex: 47 / F Adm Date: 3 Loc: Room: [address] [place] [address] Type: ADM IN Attending Dr: Jeana Martini [...] % (Auto) 69.4 Lymph % (Auto) 20.6 [place] % (Auto) 7.4 Eos % (Auto) 1.8 Baso % (Auto) 0.8 Nucleat RBC Rel Count 0.0 Neut # (Auto) 5.7 Lymph # (Auto) 1.7 [place] # (Auto) 0.6 Eos # (Auto) 0.2 [...] MPV Neut % (Auto) Lymph % (Auto) [place] % (Auto) Eos % (Auto) Baso % (Auto) Nucleat RBC Rel Count Neut # (Auto) Lymph # (Auto) [place] # (Auto) Eos # (Auto) Baso # [...] signed by Shameka Romero MD> 08/21/22 1602 [facility] Work Phone: Discharge summary Author Jeana Martini [facility] August 22, 2022 1:35pm Note Date/Time August 22, 2022 1:3 0pm [facility] [address] [place] [address] Discharge Summary Signed Patient: Addie Jean Baptiste MR#: [id number] : 1975 Acct:[id number] Age/Sex: 47 / F Adm Date: 3 Loc: Room: [address] [place] [address]: Jeana Martini MD Copies to: Laurent Franco [employer] Jeana Martini MD~ Providers Date of Discharge: [...] on intravenous antibiotic Patient was seen by district court judge who recommended and performed bedside incision and [...] place, time and person, morbidly obese HEENT: [place] conjunctiva and NL buccal mucosa Neck: Supple, [...] ask your primary care provider to obtain [facility] records entirely to follow up on all of the abnormal physical, laboratory, and imaging findings that I have not addressed. Please follow-up with Dr. Romero to evaluate your circulation Please return back to the emergency room or seek medical attention if your symptoms worsen or return. [facility] Regional does not mean that your medical care [...] to 2 weeks. Please call for appointment.) [facility] [place] [Physician] - 08/25/22 10:15 am (Follow-up with your Primary Care Provider, call office to reschedule if needed. ) Documented By: Jeana Martini MD 08/22/22 1325 Signed By: <Electronically signed by Jeana Martini MD> 08/22/22 1335 [facility] Work Phone: Evaluation + Plan note Future Appointments Appointment Date:09/02/2021 02:45:00 PM Scheduled Provider:Kirk Abbott MD Location:[facility] Appointment Type:Cardiology New Patient (FT) Appointment Date:10/30/2021 03:40:00 PM Scheduled Provider:Breanna Gu CNP Location:[facility] Appointment Type:FM Open Future Scheduled Tests Laboratory* HgbA1c 07/29/21 * Microalbumin Level Urine 07/29/21 * CBC w/ Auto Diff 07/29/21 * Comprehensive Metabolic Panel 07/29/21 * Lipid Panel 07/29/21 * Thyroid Stimulating Hormone 07/29/21 [facility] Future Appointments Appointment Date:10/15/2021 01:00:00 PM Scheduled Provider:Nancy GUTIERREZ CNP [facility] Type:Cardiology Follow Up (FT) Appointment Date:10/30/2021 03:40:00 PM Scheduled Provider:Breanna Gu CNP Location:[facility] Appointment Type:FM Open Future Scheduled Tests Laboratory* HgbA1c 07/29/21 * Microalbumin Level Urine 07/29/21 * CBC w/ Auto Diff 07/29/21 * Comprehensive Metabolic Panel 07/29/21 * Lipid Panel 07/29/21 * Thyroid Stimulating Hormone 07/29/21 [facility] Future Appointments Appointment Date:09/30/2021 02:00:00 PM Scheduled Provider:Breanna Gu CNP Location:[facility] Appointment Type:FM Open Appointment Date:10/15/2021 01:00:00 PM Scheduled Provider:Nancy GUTIERREZ CNP [facility] Type:Cardiology Follow Up (FT) Appointment Date:10/30/2021 03:40:00 PM Scheduled Provider:Breanna Gu CNP Location:[facility] Appointment Type:FM Open Future Scheduled Tests Laboratory* HgbA1c 07/29/21 * Microalbumin Level Urine 07/29/21 * CBC w/ Auto Diff 07/29/21 * Comprehensive Metabolic Panel 07/29/21 * Lipid Panel 07/29/21 * Thyroid Stimulating Hormone 07/29/21 Radiology* Echo Transthoracic Complete 09/03/21 [facility] Future Appointments Appointment Date:10/15/2021 01:00:00 PM Scheduled Provider:Nancy GUTIERREZ CNP [facility] Type:Cardiology Follow Up (FT) Appointment Date:01/01/2022 02:00:00 PM Scheduled Provider:Breanna Gu CNP Location:[facility] Appointment Type:FM Open Future Scheduled Tests Laboratory* HgbA1c 09/30/21 * HgbA1c 07/29/21 * Microalbumin Level Urine 07/29/21 * CBC w/ Auto Diff 07/29/21 * Comprehensive Metabolic Panel 07/29/21 * Lipid Panel 07/29/21 * Thyroid Stimulating Hormone 09/30/21 * Thyroid Stimulating Hormone 07/29/21 Radiology* Echo Transthoracic Complete 09/03/21 [facility] Evaluation + Plan note Future Appointments Appointment Date:10/15/2021 01:00:00 PM Scheduled Provider:Nancy GUTIERREZ CNP [facility] Type:Cardiology Follow Up (FT) Appointment Date:01/01/2022 02:00:00 PM Scheduled Provider:Breanna Gu CNP Location:[facility] Appointment Type:FM Open Future Scheduled Tests Laboratory* HgbA1c 07/29/21 * Thyroid Stimulating Hormone 07/29/21 Radiology* Echo Transthoracic Complete 09/03/21 [facility] Future Appointments Appointment Date:10/15/2021 01:00:00 PM Scheduled Provider:Nancy GUTIERREZ CNP [facility] Type:Cardiology Follow Up (FT) Appointment Date:01/01/2022 02:00:00 PM Scheduled Provider:Breanna Gu CNP Location:[facility] Appointment Type:FM Open Future Scheduled Tests Laboratory* HgbA1c 07/29/21 * Thyroid Stimulating Hormone 07/29/21 Radiology* NM Myocardial Spect Rest/Stress 1 Day 10/07/21 * Echo Transthoracic Complete 09/03/21 [facility] Future Appointments Appointment Date:11/14/2021 12:15:00 PM Scheduled Provider: [facility] App[facility] Type:NM Myocard Spect Multi Rest/Stress-Res Appointment Date:11/14/2021 01:15:00 PM Scheduled Provider: [facility] App[facility] Type:NM Myocard Spect Multi Rest/Stress - R Appointment Date:11/14/2021 01:45:00 PM Scheduled Provider: [facility] App[facility] Type:NM Myocard Spect Multi Rest/Stress-Str Appointment Date:11/14/2021 02:45:00 PM Scheduled Provider: [facility] App[facility] Type:NM Myocar Spect Multi Rest/Stress - St Appointment Date:11/20/2021 11:45:00 AM Scheduled Provider:Yuriy Fraser MD [facility] Type:Cardiology Follow Up (FT) Appointment Date:01/01/2022 02:00:00 PM Scheduled Provider:Breanna Gu CNP Location:[facility] Appointment Type:FM Open Diagnostic Tests Pending * Urine Culture 10/30/21 Future Scheduled Tests Laboratory* Fecal WBC Lactoferrin 10/30/21 * HgbA1c 07/29/21 * Enteric Panel by PCR 10/30/21 * Thyroid Stimulating Hormone 07/29/21 Radiology* NM Myocardial Spect Rest/Stress 1 Day 11/14/21 * Echo Transthoracic Complete 09/03/21 [facility] Future Appointments Appointment Date:11/20/2021 11:45:00 AM Scheduled Provider:Yuriy Fraser MD [facility] Type:Cardiology Follow Up (FT) Appointment Date:12/02/2021 10:00:00 AM Scheduled Provider:Breanna Gu CNP Location:[facility] Appointment Type: ER/Hospital Follow Up Appointment Date:01/01/2022 02:00:00 PM Scheduled Provider:Breanna Gu CNP Location:[facility] Appointment Type:FM Open Future Scheduled Tests Laboratory* Fecal WBC Lactoferrin 10/30/21 * HgbA1c 07/29/21 * Enteric Panel by PCR 10/30/21 * Thyroid Stimulating Hormone 07/29/21 Radiology* Echo Transthoracic Complete 09/03/21 [facility] Future Appointments Appointment Date:12/02/2021 10:00:00 AM Scheduled Provider:Breanna Gu CNP Location:[facility] Appointment Type:FM ER/Hospital Follow Up Appointment Date:01/01/2022 02:00:00 PM Scheduled Provider:Breanna Gu CNP Location:[facility] Appointment Type:FM Open Future Scheduled Tests Laboratory* Fecal WBC Lactoferrin 10/30/21 * HgbA1c 07/29/21 * Enteric Panel by PCR 10/30/21 * Thyroid Stimulating Hormone 07/29/21 Radiology* Echo Transthoracic Complete 09/03/21 [facility] Future Appointments Appointment Date:12/16/2021 08:30:00 AM Scheduled Provider: [facility] App[facility] Type:NM Myocard Spect Multi Rest/Stress-Res Appointment Date:12/16/2021 09:30:00 AM Scheduled Provider: [facility] Appoint[facility] Type:NM Myocard Spect Multi Rest/Stress - R Appointment Date:12/16/2021 10:00:00 AM Scheduled Provider: [facility] Appoint[facility] Type:NM Myocard Spect Multi Rest/Stress-Str Appointment Date:12/16/2021 11:00:00 AM Scheduled Provider: [facility] Appoint[facility] Type:NM Myocar Spect Multi Rest/Stress - St Appointment Date:01/01/2022 02:00:00 PM Scheduled Provider:Breanna Gu CNP Location:[facility] Appointment Type:FM Open Future Scheduled Tests Laboratory* Fecal WBC Lactoferrin 10/30/21 * HgbA1c 07/29/21 * Enteric Panel by PCR 10/30/21 * Thyroid Stimulating Hormone 07/29/21 Radiology* NM Myocardial Spect Rest/Stress 1 Day 12/16/21 * Echo Transthoracic Complete 09/03/21 [facility] Evaluation + Plan note Future Appointments Appointment Date:01/01/2022 02:00:00 PM Scheduled Provider:Breanna Gu CNP Location:[facility] Appointment Type:FM Open Future Scheduled Tests Laboratory* Fecal WBC Lactoferrin 10/30/21 * HgbA1c 07/29/21 * Enteric Panel by PCR 10/30/21 * Thyroid Stimulating Hormone 07/29/21 Radiology* NM Myocardial Spect Rest/Stress 1 Day 12/16/21 * Echo Transthoracic Complete 09/03/21 [facility]* Diagnosis Other insomnia- Primary documented in this encounter [facility] Work Phone: evaluation note* Diagnosis Onset Date Resolution Status Diabetic foot infection acut e Hypertension acute Hypokalemia acute Hypomagnesemia acute [facility] Work Phone: Evaluation note* Diagnosis Onset Date Resolution Status Abscess of toenail on left foot acute Cellulitis of left foot acut e [id number] acute Diabetic foot infection acut e Hypertension acute Hypokalemia acute Hypomagnesemia acute Hypophosphatemia acute Onychocryptosis acute Peripheral vascular disease acute Toe infection acute Toe pain, left acute Diabetes chronic Nicotine dependence chronic [facility] Work Phone: Evaluation noteNo [employer] Other Evaluation note* Diagnosis Weakness of lower extremity, unspecified laterality- Primary Urinary incontinence, unspecified type Saddle anesthesia Disturbance of skin sensation Type 2 diabetes mellitus with diabetic neuropathy, unspecified whether press tender long goods insulin use ([facility]) [facility] Diagnosis Right knee pain, unspecified chronicity- Primary documented in this [facility] [place] [facility] Diagnosis Strain of right hamstring, initial encounter- Primary Strain of right knee, initial encounter Other specified diabetes mellitus with other specified complication, unspecified whether press tender long goods insulin use (HCC) [facility] Diagnosis Chest pain, unspecified type- Primary Chest pain, unspecified type Flank pain Abdominal pain, unspecified site Type 2 diabetes mellitus with other specified complication, unspecified whether press tender long goods insulin use (HCC) Seizure (HCC) Other convulsions documented [facility] this encounter [facility]* Diagnosis Chest pain- Primary Unspecified chest [...] Pain in limb [facility] Diagnosis Muscle spasms of both lower extremities documented [facility] this [facility]* Diagnosis Chronic pain syndrome- Primary Muscle spasms of both lower extremities Urinary incontinence, unspecified type Chronic nonintractable headache, unspecified headache type Chronic obstructive pulmonary disease, unspecified COPD type (HCC) Type 2 diabetes mellitus with diabetic polyneuropathy, with long-term current use of insulin ([facility]) Diabetic peripheral neuropathy (HCC) Type II or unspecified type diabetes mellitus with neurological manifestations, not stated as uncontrolled Diabetic ulcer of right foot associated with type 2 diabetes mellitus, unspecified part of foot, unspecified ulcer stage ([facility]) Hypothyroidism, unspecified type Primary hypertension Unspecified essential hypertension Hypercholesterolemia Pure hypercholesterolemia S/P placement of cardiac pacemaker Seizures (HCC) Other convulsions Bipolar 1 disorder (HCC) Gastroesophageal reflux disease, unspecified whether esophagitis present Vitamin D deficiency Vitamin B12 deficiency Other B-complex deficiencies Cigarette nicotine dependence without complication documented [facility] this encounter [facility]* Diagnosis Right foot ulcer, with fat layer exposed ([facility])- Primary documented in this [facility]* Diagnosis Chronic pain syndrome- Primary Muscle [...] dependence without complication [facility]* Diagnosis Muscle spasms of both lower extremities documented [facility]* Diagnosis Bipolar 1 disorder (HCC)- Primary Post traumatic stress disorder (PTSD) Generalized anxiety disorder Insomnia, unspecified type [facility] Diagnosis Primary hypertension- Primary Unspecified essential [...] insufficiency, unspecified [facility] Diagnosis Muscle spasms of both [...] of insulin (HCC) [facility]* Diagnosis Type 2 diabetes mellitus with [...] of insulin (HCC) [facility]* Diagnosis Chronic pain syndrome- Primary Muscle [...] Chronic obstructive pulmonary disease, unspecified COPD type ([facility]) Family history of pulmonary fibrosis Retinal hemorrhage [...] both lower extremities [facility]* Diagnosis Diabetic ulcer of left great toe ([facility])- Primary Diabetic ulcer of toe of left foot associated with type 2 diabetes mellitus, limited to breakdown of skin ([facility]) Diabetic ulcer of left great toe ([facility]) Seizures ([facility]) Other convulsions Type 2 diabetes mellitus with diabetic polyneuropathy, with long-term current use of insulin ([facility]) documented in this encounter [facility]* Diagnosis Diabetic ulcer of right foot associated with type 2 diabetes mellitus, unspecified part of foot, unspecified ulcer stage ([facility])- Primary Primary hypertension Unspecified essential hypertension SOLO (acute kidney injury) ([facility]) Hypothyroidism, unspecified type Hyperlipidemia, unspecified hyperlipidemia type [facility]* Diagnosis Chronic pain syndrome [facility]* Diagnosis DDD (degenerative disc disease), lumbar Degeneration of lumbar or lumbosacral intervertebral disc Lumbar radiculopathy Thoracic or lumbosacral neuritis or radiculitis, unspecified documented [facility] this [facility]* Diagnosis DDD (degenerative disc disease), lumbar Degeneration of lumbar or lumbosacral intervertebral disc Lumbar radiculopathy Thoracic or lumbosacral neuritis or radiculitis, unspecified [facility]* Diagnosis Diabetic ulcer of left great toe (HCC)- Primary [facility]* Diagnosis Bipolar 1 disorder ([facility]) Insomnia, unspecified type [facility]* Diagnosis Chronic pain syndrome- Primary DDD (degenerative disc disease), lumbar Degeneration of lumbar or lumbosacral intervertebral disc Lumbar radiculopathy Thoracic or lumbosacral neuritis or radiculitis, unspecified Other chronic pain Myofascial pain syndrome Unspecified myalgia and myositis Debilitated patient Unspecified debility [facility]* Diagnosis Diabetic ulcer of left great [...] Urinary incontinence, unspecified type Bipolar 1 disorder ([facility]) Insomnia, unspecified type Gastroesophageal reflux disease, unspecified whether esophagitis present Family history of pulmonary fibrosis Vitamin B12 deficiency Other B-complex deficiencies Vitamin D deficiency Cigarette nicotine dependence without complication Need for vaccination Need for prophylactic vaccination and inoculation against unspecified single disease documented [facility] this encounter [facility]* Diagnosis DDD (degenerative disc disease), lumbar Degeneration of lumbar or lumbosacral intervertebral disc Lumbar radiculopathy Thoracic or lumbosacral neuritis or radiculitis, unspecified [facility]* Diagnosis Cellulitis of chin- Primary Cellulitis [...] pigmentation of skin [facility]* Diagnosis Cellulitis of chin- Primary Cellulitis [...] or radiculitis, unspecified [facility]* Diagnosis Type II diabetes mellitus with neurological manifestations (CMS/HCC)- Primary Type II or unspecified type diabetes mellitus with neurological manifestations, not stated as uncontrolled Chronic foot ulcer with fat layer exposed, left (CMS/HCC) Cellulitis of left foot [facility] Diagnosis Cellulitis of chin- Primary [...] whether esophagitis present [facility]* Diagnosis Cellulitis of chin- Primary Cellulitis [...] Chronic pain syndrome [facility]* Diagnosis Cellulitis of chin- Primary Cellulitis [...] for health-related screening [facility]* Diagnosis Cellulitis of chin- Primary Cellulitis [...] pain- Primary Lumbago [facility]* Diagnosis Cellulitis of chin- Primary Cellulitis [...] unspecified chronicity- Primary [facility]* Diagnosis Cellulitis of chin- Primary Cellulitis [...] in this [facility] noteNo assessment [facility] Work Phone: Evaluation note* Diagnosis Cellulitis of [...] Chronic pain syndrome [facility]* Diagnosis Cellulitis of chin- Primary Cellulitis [...] Chronic pain syndrome [facility]* Diagnosis Hyperglycemia- Primary Other abnormal glucose [...] appointment- Primary [facility] Diagnosis Cellulitis of chin- Primary [...] Chronic pain syndrome [facility]* Diagnosis Sudden loss of vision- Primary Sudden visual loss HHS (hypothenar hammer syndrome) Hyperosmolar hyperglycemic state (HHS) ([facility]) Hyperosmolar hyperglycemic state (HHS) ([facility]) SOLO (acute kidney injury) HHS (hypothenar hammer syndrome) [facility]* Diagnosis Cellulitis of chin- Primary [...] [facility] Author Ezekiel Mathew [facility] August 20, 2022 3:56am Note Date/Time August 20, 2022 3:5 6am [facility] [address] [place] [address] Hospitalist H&P Signed Patient: Addie Jean Baptiste MR#: [id number] : 1975 Acct:[id number] Age/Sex: 47 / F Adm Date: 3 Loc: Room: [address] [place] [address] Type: ADM INOo Attending Dr: Ezekiel Mathew [...] % (Auto) 27.3 % (.) 08/20/22 00:19 [place] % (Auto) 6.0 % (.) 08/20/22 00:19 Eos % (Auto) 1.3 % (.) 08/20/22 00:19 Baso % (Auto) 0.7 % (.) 08/20/22 00:19 Nucleat RBC Rel Count 0.0 /100 WBC (0-0.5) 08/20/22 00:19 Neut # (Auto) 5.5 x10E3/uL (1.8-7.7) 08/20/22 00:19 Lymph # (Auto) 2.3 x10E3/uL (1.00-4.8) 08/20/22 00:19 [place] # (Auto) 0.5 x10E3/uL (0.0-0.8) 08/20/22 00:19 [...] pH 6.5 (5.0-9.0) 08/20/22 01:07 Ur Specific [place] 1.017 (1.001-1.030) 08/20/22 01:07 Urine Protein 100 [...] 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 Since his partner Dr. [...] signed by Ezekiel Mathew, > 08/20/22 0356 [facility] Work Phone: history general Narrative - [...] [facility] 12/2013 Hospitalization History [facility] 2017 Hospitalization History Seizures [employer] [facility] [employer] Other history general Narrative - Reported* Type [...] Pain 07/2012 Hospitalization History [facility] 12/2013 Hospitalization History [facility] 2017 Hospitalization History Seizures Hospitalization History toe infection 08/2022 [employer] Other Hospital course Narrative No data available for this section [facility] Discharge instructions No data available for this section [facility] Discharge instructions* Attachments The following attachments cannot be sent through Care Everywhere. * Insomnia (Latvian) * Video: Sleeping Better (Latvian) * Video: Sleep and Your Health (Latvian) * Video: When You're Not Sleeping Well (Latvian) [facility] Work Phone: Hospital Discharge instructions Additional Instructions Please follow up with your nurse practitioner re: blood sugars and Aicd evaluation. Call Dr. Romero's office to reschedule and to schedule a PST appointment before surgery.[facility] Work Phone: Hospital Discharge instructions* Attachments The following attachments cannot be sent through Care Everywhere. * Toe Amputation: Post-op (Latvian) [facility] Discharge instructions Additional [...] with any concerns. Thank you for choosing [facility] Urgent [facility] Work Phone: InstructionsNot on filedocumented in this encounter [facility] Plan of care note* Visit Details Visit Type -SN HH OASIS Star t of Care Discipline -Senior Care Problems Problem Start Date Status Goals Interventions Psychosocial Health Disciplines: Senior Care 04/01/2023 Active 1 goal linked to scheduled/documented intervention 1 goal intervention scheduled/documented in this visit Neurological Disciplines: Senior Care 04/01/2023 Active 1 goal linked to scheduled/documented intervention 1 goal intervention scheduled/documented in this visit Respiratory Disciplines: Senior Care 04/01/2023 Active 1 goal linked to scheduled/documented intervention 1 goal intervention scheduled/documented in this visit Cardiac Disciplines: Senior Care 04/01/2023 Active 1 goal linked to scheduled/documented intervention 1 goal intervention scheduled/documented in this visit Diabetes Disciplines: Senior Care 04/01/2023 Active 1 goal linked to scheduled/documented intervention 1 goal intervention scheduled/documented in this visit Assess and Instruct Home Visit Disciplines: Senior Care 04/01/2023 Active 1 goal linked to scheduled/documented intervention 3 goal interventions scheduled/documented in this visit Medication Management Disciplines: Senior Care 04/01/2023 Active 1 goal linked to scheduled/documented intervention 1 goal intervention scheduled/documented in this visit Pain Management Disciplines: Senior Care 04/01/2023 Active 1 goal linked to scheduled/documented intervention 1 goal intervention scheduled/documented in this visit Assess POC Synopsis Disciplines: Senior Care 04/01/2023 Active 2 goals linked to scheduled/documented [...] Problem:Psychosocial Health Goal:Depression Completed 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 Patient to citrus picker meds from pharmacy and follow medlist [...] interest in teaching [facility] Visit Details Visit Type -SN HH OASIS Graettinger t of Care Discipline -Senior Care Problems Problem Start Date Status Goals Interventions Psychosocial Health Disciplines: Senior Care 04/01/2023 Active 1 goal linked to scheduled/documented intervention 1 goal intervention scheduled/documented in this visit Neurological Disciplines: Senior Care 04/01/2023 Active 1 goal linked to scheduled/documented intervention 1 goal intervention scheduled/documented in this visit Respiratory Disciplines: Senior Care 04/01/2023 Active 1 goal linked to scheduled/documented intervention 1 goal intervention scheduled/documented in this visit Cardiac Disciplines: Senior Care 04/01/2023 Active 1 goal linked to scheduled/documented intervention 1 goal intervention scheduled/documented in this visit Diabetes Disciplines: Senior Care 04/01/2023 Active 1 goal linked to scheduled/documented intervention 1 goal intervention scheduled/documented in this visit Assess and Instruct Home Visit Disciplines: Senior Care 04/01/2023 Active 1 goal linked to scheduled/documented intervention 3 goal interventions scheduled/documented in this visit Medication Management Disciplines: Senior Care 04/01/2023 Active 1 goal linked to scheduled/documented intervention 1 goal intervention scheduled/documented in this visit Pain Management Disciplines: Senior Care 04/01/2023 Active 1 goal linked to scheduled/documented intervention 1 goal intervention scheduled/documented in this visit Assess POC Synopsis Disciplines: Senior Care 04/01/2023 Active 2 goals linked to scheduled/documented [...] Problem:Psychosocial Health Goal:Depression Completed 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 Patient to citrus picker meds from pharmacy and follow medlist [...] interest in teaching documented [facility] this [facility] Visit Details Visit Type -SN HH OASIS [place]ettinger t of Care Discipline -Senior Care Problems Problem Start Date Status Goals Interventions Psychosocial Health Disciplines: Senior Care 04/01/2023 Active 1 goal linked to scheduled/documented intervention 1 goal intervention scheduled/documented in this visit Neurological Disciplines: Senior Care 04/01/2023 Active 1 goal linked to scheduled/documented intervention 1 goal intervention scheduled/documented in this visit Respiratory Disciplines: Senior Care 04/01/2023 Active 1 goal linked to scheduled/documented intervention 1 goal intervention scheduled/documented in this visit Cardiac Disciplines: Senior Care 04/01/2023 Active 1 goal linked to scheduled/documented intervention 1 goal intervention scheduled/documented in this visit Diabetes Disciplines: Senior Care 04/01/2023 Active 1 goal linked to scheduled/documented intervention 1 goal intervention scheduled/documented in this visit Assess and Instruct Home Visit Disciplines: Senior Care 04/01/2023 Active 1 goal linked to scheduled/documented intervention 3 goal interventions scheduled/documented in this visit Medication Management Disciplines: Senior Care 04/01/2023 Active 1 goal linked to scheduled/documented intervention 1 goal intervention scheduled/documented in this visit Pain Management Disciplines: Senior Care 04/01/2023 Active 1 goal linked to scheduled/documented intervention 1 goal intervention scheduled/documented in this visit Assess POC Synopsis Disciplines: Senior Care 04/01/2023 Active 2 goals linked to scheduled/documented [...] Problem:Psychosocial Health Goal:Depression Completed 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 Patient to citrus picker meds from pharmacy and follow medlist [...] interest in teaching documented [facility] this [facility] Visit Details Visit Type -SN HH OASIS [place]ettinger t of Care Discipline -Senior Care Problems Problem Start Date Status Goals Interventions Psychosocial Health Disciplines: Senior Care 04/01/2023 Active 1 goal linked to scheduled/documented intervention 1 goal intervention scheduled/documented in this visit Neurological Disciplines: Senior Care 04/01/2023 Active 1 goal linked to scheduled/documented intervention 1 goal intervention scheduled/documented in this visit Respiratory Disciplines: Senior Care 04/01/2023 Active 1 goal linked to scheduled/documented intervention 1 goal intervention scheduled/documented in this visit Cardiac Disciplines: Senior Care 04/01/2023 Active 1 goal linked to scheduled/documented intervention 1 goal intervention scheduled/documented in this visit Diabetes Disciplines: Senior Care 04/01/2023 Active 1 goal linked to scheduled/documented intervention 1 goal intervention scheduled/documented in this visit Assess and Instruct Home Visit Disciplines: Senior Care 04/01/2023 Active 1 goal linked to scheduled/documented intervention 3 goal interventions scheduled/documented in this visit Medication Management Disciplines: Senior Care 04/01/2023 Active 1 goal linked to scheduled/documented intervention 1 goal intervention scheduled/documented in this visit Pain Management Disciplines: Senior Care 04/01/2023 Active 1 goal linked to scheduled/documented intervention 1 goal intervention scheduled/documented in this visit Assess POC Synopsis Disciplines: Senior Care 04/01/2023 Active 2 goals linked to scheduled/documented [...] Problem:Psychosocial Health Goal:Depression Completed 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 ACCOUNT SUPERVISOR Missed Visit Discipline -Home Health Aide Problems [...] Aide Goal:Hygiene/Safety Scheduled documented [facility] this [facility] Visit Details [...] Care Plan Scheduled documented in this [facility] Visit Details Visit Type -TRACE EVIDENCE TECHNICIAN Routine Discipline -Senior Care Problems Problem Start Date Status Goals Interventions Assess and Instruct Home Visit Disciplines: Senior Care 04/01/2023 Active 1 goal linked to scheduled/documented intervention 4 goal interventions scheduled/documented in this visit Medication Management Disciplines: Senior Care 04/01/2023 Active 1 goal linked to scheduled/documented intervention 1 goal intervention scheduled/documented in this visit Pain Management Disciplines: Senior Care 04/01/2023 Active 1 goal linked to scheduled/documented [...] Management Goal:Pain Completed documented in this encounter [facility] home Plan of care note* Visit Details Visit Type -[facility] t Discipline -Home Health Aide Problems [...] Aide Goal:Hygiene/Safety Completed documented in this encounter [facility] home Plan of care note* [facility] A[facility] Problems Problem [...] Aide Goal:Hygiene/Safety Completed [facility] Visit Details Visit Type -INTEGRATION ANALYST Routine Visi t Discipline -Physical Therapy Problems [...] Type -SN HH Routine Vi sit Discipline -Senior Care Problems Problem Start Date Status Goals Interventions Psychosocial Health Disciplines: Senior Care 04/01/2023 Active 1 goal linked to scheduled/documented intervention 1 goal intervention scheduled/documented in this visit Neurological Disciplines: Senior Care 04/01/2023 Active 1 goal linked to scheduled/documented intervention 1 goal intervention scheduled/documented in this visit Respiratory Disciplines: Senior Care 04/01/2023 Active 1 goal linked to scheduled/documented intervention 1 goal intervention scheduled/documented in this visit Cardiac Disciplines: Senior Care 04/01/2023 Active 1 goal linked to scheduled/documented intervention 1 goal intervention scheduled/documented in this visit Diabetes Disciplines: Senior Care 04/01/2023 Active 1 goal linked to scheduled/documented intervention 1 goal intervention scheduled/documented in this visit Assess and Instruct Home Visit Disciplines: Senior Care 04/01/2023 Active 1 goal linked to scheduled/documented intervention 4 goal interventions scheduled/documented in this visit Medication Management Disciplines: Senior Care 04/01/2023 Active 1 goal linked to scheduled/documented intervention 1 goal intervention scheduled/documented in this visit Pain Management Disciplines: Senior Care 04/01/2023 Active 1 goal linked to scheduled/documented intervention 1 goal intervention scheduled/documented in this visit Assess POC Synopsis Disciplines: Senior Care 04/01/2023 Active 2 goals linked to scheduled/documented interventions 2 goal interventions scheduled/documented in this visit Wound Care and/or Skin Problems Disciplines: Senior Care 04/15/2023 Active 1 goal linked to scheduled/documented [...] [facility] 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 SUPERVISOR Missed Visit Discipline -Home Health Aide Problems [...] Aide Goal:Hygiene/Safety Scheduled documented in this encounter [facility] home Plan of care note* Visit Details Visit Type -SN Missed Visit Discipline -Senior Care Problems Problem Start Date Status Goals Interventions Assess and Instruct Home Visit Disciplines: Senior Care 04/01/2023 Active 1 goal linked to scheduled/documented intervention 3 goal interventions scheduled/documented in this visit Medication Management Disciplines: Senior Care 04/01/2023 Active 1 goal linked to scheduled/documented intervention 1 goal intervention scheduled/documented in this visit Pain Management Disciplines: Senior Care 04/01/2023 Active 1 goal linked to scheduled/documented intervention 1 goal intervention scheduled/documented in this visit Wound Care and/or Skin Problems Disciplines: Senior Care 04/15/2023 Active 1 goal linked to scheduled/documented [...] Problems Goal:Wound/Incision Scheduled documented [facility] this [facility] Visit Details Visit Type -INTEGRATION ANALYST Missed Visit Discipline -Physical Therapy Problems Problem [...] Care Plan Scheduled documented in this encounter [facility] home Plan of care note* Visit [...] Care Plan Scheduled documented in this encounter [facility] home Plan of care note* Visit Details Visit Type -SN HH OASIS Disc harge Discipline -Senior Care Problems Problem Start Date Status Goals Interventions Assess and Instruct Home Visit Disciplines: Senior Care 04/01/2023 Active 1 goal linked to scheduled/documented intervention 3 goal interventions scheduled/documented in this visit Medication Management Disciplines: Senior Care 04/01/2023 Active 1 goal linked to scheduled/documented intervention 1 goal intervention scheduled/documented in this visit Pain Management Disciplines: Senior Care 04/01/2023 Active 1 goal linked to scheduled/documented intervention 1 goal intervention scheduled/documented in this visit Wound Care and/or Skin Problems Disciplines: Senior Care 04/15/2023 Active 1 goal linked to scheduled/documented [...] Problems Goal:Wound/Incision Scheduled [facility] Visit Details Visit Type -INTEGRATION ANALYST Missed Visit Discipline -Physical Therapy Problems Problem [...] CARE ADMISSION (including facility stays and dates): [facility] 03/29-03/30/23 for: [...] by patient/caregiver: agreeable to all ordered services: SN,PT,OT,PUBLIC RELATIONS ACCOUNT SUPERVISOR Prior functional level: indpendent with adls/ questionable management of meds as none in home at time of admission/dependent for iadls Current functional level: needs assist with learning meds/disease process Fall Risk: MAHC-10 score 7, 4-10 Patient IS at risk for falls (a score of 6 or greater is a predictor of future falls) Medication Issues: no meds in home, patient agreed to citrus picker all meds from pharmacy on day [...] training, therex, HEP. [facility]* Actions Homebound Status Criteria 1: Assistive Device(s): None Needs assistance of at least 1 to leave home Criteria 2: Patient confined to home due to unsteady gait/poor balance Type of Home: split level / walkout [facility] alejandro Patient s goals for HomeCare: Be stronger What skill(s) will be provided by your discipline: ADL retraining, ther exercises, ther activity Rehab Potential: good HISTORY OF PRESENT ILLNESS LEADING UP TO HOME CARE ADMISSION (including facility stays and dates): [facility] 03/29-03/30/23 for: [...] unsteady gait/poor balance [facility]* Narratives Pt declined further care to RN. RN completed OASIS D/C. Home PT non-billable discharge completed. [facility] this [facility] No data available for this section [facility] Author Jeana Martini [facility] August 20, 2022 9:48am Note Date/Time August 20, 2022 9:4 8am [facility] [address] [place] [address] Hospitalist Progress Note Signed Patient: Addie Jean Baptiste MR#: [id number] : 1975 Acct:[id number] Age/Sex: 47 / F Adm Date: 3 Loc: Room: [address] [place] [address] Type: ADM INOo Attending Dr: Jeana Martini [...] place, time and person, morbidly obese HEENT: [place] conjunctiva and NL buccal mucosa Neck: Supple, [...] <Electronically signed by Jeana Martini MD> 08/20/2248 [facility] Work Phone: Progress note Author Jeana Martini [facility] August 21, 2022 10:10am Note Date/Time August 21, 2022 10: 10am [facility] [address] [place] [address] Hospitalist Progress Note Signed Patient: Addie Jean Baptiste MR#: [id number] : 1975 Acct:[id number] Age/Sex: 47 / F Adm Date: 3 Loc: 3T Room: [address] [place] [address] Type: ADM IN Attending Dr: Jeana Martini [...] place, time and person, morbidly obese HEENT: [place] conjunctiva and NL buccal mucosa Neck: Supple, [...] signed by Jeana Martini MD> 08/21/22 1010 [facility] Work Phone: Progress note Author Lawrence Kim [facility] August 21, 2022 11:22am Note Date/Time August 21, 2022 11: 22am [facility] [address] [place] [address] Infect. Disease Progress Note Signed Patient: Addie Jean Baptiste MR#: [id number] : 1975 Acct:[id number] Age/Sex: 47 / F Adm Date: 3 Loc: Room: [address] [place] [address] Type: ADM IN Attending Dr: Jeana Martini [...] 5 Mg Tablet) 5 mg PO DAILY [facility] Stop: 08/20/23 09:39 Last Admin: 08/21/22 09:00 [...] 20 Mg Tablet) 20 mg PO DAILY.8A [facility] Stop: 08/20/23 07:59 Last Admin: 08/21/22 09:00 [...] 300 Units/3 Ml Insuln.Pen) 0 units SUBCUT TID.WM.[facility]; Protocol Stop: 08/20/23 11:59 Last Admin: 08/21/22 09:03 Dose: Not Given Levetiracetam (Levetiracetam 250 Mg Tablet) 750 mg PO BID [facility] Stop: 08/20/23 08:59 Last Admin: 08/21/22 08:59 Dose: 750 mg Levothyroxine Sodium (Levothyroxine 75 Mcg Tablet) 75 mcg PO DAILY@0630 [facility] Stop: 08/20/23 06:29 Last Admin: 08/21/22 06:09 Dose: 75 mcg Lisinopril (Lisinopril 40 Mg Tablet) 40 mg PO DAILY [facility] Stop: 08/20/23 08:59 Last Admin: 08/21/22 09:01 Dose: 40 mg Metformin HCl (Metformin 500 Mg Tablet) 1,000 mg PO BID.WITH.MEALS [facility] Stop: 08/20/23 07:59 Last Admin: 08/21/22 09:00 Dose: 1,000 mg Pantoprazole Sodium (Pantoprazole 40 Mg Tablet.Dr) 40 mg PO DAILY [facility] Stop: 08/21/23 08:59 Last Admin: 08/21/22 09:01 Dose: 40 mg Pregabalin (Pregabalin 150 Mg Capsule) 150 mg PO [facility] Stop: 02/16/23 03:44 Last Admin: 08/20/22 21:12 Dose: 150 mg Quetiapine Fumarate (Quetiapine Fumarate 200 Mg Tablet) 800 mg PO [facility] Stop: 08/20/23 03:59 Last Admin: 08/20/22 21:12 Dose: 800 mg Saccharomyces Boulardii (Saccharomyces Boulardii 250 Mg Capsule) 250 mg PO BID.WITH.MEALS [facility] Stop: 08/20/23 07:59 Last Admin: 08/21/22 08:59 [...] signed by MD Lawrence Kim> 08/21/22 1122 [facility] Work Phone: Progress note Author Jeana Martini [facility] August 22, 2022 9:54am Note Date/Time August 22, 2022 9:5 5am [facility] [address] [place] [address] Hospitalist Progress Note Signed Patient: Addie Jean Baptiste MR#: [id number] : 1975 Acct:[id number] Age/Sex: 47 / F Adm Date: 3 Loc: Room: 5G1050-9 Type: ADM IN Attending Dr: Jeana Martini [...] place, time and person, morbidly obese HEENT: [place] conjunctiva and NL buccal mucosa Neck: Supple, [...] signed by Jeana Martini MD> 08/22/22 0954 [facility] Work Phone: Progress note Author Shameka Romero [facility] August 22, 2022 9:56am Note Date/Time August 22, 2022 9:5 6am [facility] [address] [place] [address] Vascular Surgery Progress Note Signed Patient: Addie Jean Baptiste MR#: [id number] : 1975 Acct:[id number] Age/Sex: 47 / F Adm Date: 3 Loc: 3T Room: [address] [place] [address] Type: ADM IN Attending Dr: Jeana Martini [...] to the special suite and placed her [facility] angiography table. She is extremely anxious [...] signed by Shameka Romero MD> 08/22/22 0956 [facility] Work Phone: Rebfet for referral (narrative)* Consultation (Routine) - New Request Specialty Diagnoses / Procedures Referred By Dougac t Referred To Contact Sports Ortho and Primary Care Sports Diagnoses Pain of left lower leg Tonia Ridley, LYLE-SENIOR COGNOS DEVELOPER [address] [place] [phone] Referral ID Status Reason Start Date Expiration Date V isits Requested Visits Authorized [id number] New Request 08/26/2023 09/19/2024 1 1 [facility]No reason for referral information availablePe[facility] Work Phone: Regwrq for visit Narrativewondering about R/S for [facility] HospitalEvent[facility] Other Reihzw for visit Narrative* Auth/Cert Specialty Diagnoses / Procedures Referred By Contac t Referred To Contact Diagnoses Sudden vision loss Vanessa Vargas MD [address] [facility] [address] [place] [address] Phone: tel: fax: Referral ID Status Reason Start Date Expiration Date Visits Re quested Visits Authorized [id number] 1 1 [facility] Assessments Diagnosis [...] FoundDocuments on File Type Date Recorded Patient Maintenance Millwright Expl anation Advance Directives and Livin g [...] Documents on File Type Date Recorded Patient Maintenance Millwright Expl anation Advance Directives and Livin g Will 07/08/2023 8:24 PM Documents on File Type Date Recorded Patient Maintenance Mill[place] Expl anation Advance Directives and Livin g [...] Documents on File Type Date Recorded Patient Maintenance Millwright Expl anation Advance Directives and Livin g Will 11/09/2023 8:44 PM Documents on File Type Date Recorded Patient Maintenance Millwright Expl anation Advance Directives and Livin g [...] Kara Note Recipients: Rosalia Noble MD - [id number] [preferred] Italo Headley MD - [id number] [] Discharge: Summary: Admission Date: .06-Apr-2019 06:38:00 Discharge Date: 07-Apr-2019 Attending Physician at Discharge: Rosalia Noble Admission Reason: sustained ventricular tachycardia Final Discharge Diagnoses: sustained ventricular tachycardia dual chamber ICD Procedures: electrophysiology studies and dual chamber PPM upgrade to dual chamber ICD Condition at Discharge: Satisfactory Disposition at Discharge: .Home Vital Signs: T PRBPSpO2 [id number]/8395% Date/Time04/07 8: 8: 8: 8: 8:00 Range(36.2C [...] Log into your personal health record on [email or web address] and enter A739 in the Education box to learn more about Diabetes Foot Health: Care Instructions. Current as of: January 23, 2020 Content Version: 12.7 [employer]. Care instructions adapted under license by your healthcare professional. If you have questions about a medical condition or this instruction, always ask your healthcare professional. [employer] disclaims any warranty or liability for your [...] so she went to Emergency Department in [place], subsequently came to [facility] and was admitted for cellulitis of [...] at pharmacy - uses [facility] in [place] . FLUoxetine (PROZAC) 40 MG capsule Take [...] file Gets together: Not on file Attends scientologist service: Not on file Active member of [...] with #316 blade. Nail border removed with size cutter and hemostats under digital anesthesia. All [...] If there are any questions, please call. [phone]. * Nikko Wasserman, PT - 06/04/2020 4:00 [...] level Prior Level of Function Level of [place]: Independent with ADLs and functional transfers, Independent [...] 10.2-worsened since 06/28/2019. She reports that her digital technician is Dr Resendez-office number [phone]. Spoke with office staff this am and [...] pt and pt has notbeen seen by digital technician in almost 1 year. MD did refill [...] Infusions: sodium chloride 0.9 % Stopped (06/03/20 2829) sodium chloride 0.9 % 100 mL/hr (06/04/20 [...] n left foot Cellulitis of left foot [id number] Diabetic foot infection Hypertension Hypokalemia Hypomagnesemia Hypophosphatemia Onychocryptosis Peripheral vascular disease Toe infection Toe pain, left Diabetes Nicotine dependence Chief Complaint L foot pain PAD w/left great toe ulcer Reason for Visit Abscess of toenail o n left foot Cellulitis of left foot [id number] Diabetic foot infection Hypertension Hypokalemia Hypomagnesemia Hypophosphatemia [...] headache, unspecified headache type Stephany Pelayo PA-C [address] [place] [id number] Virgen Campos MD [address] [address] Referral ID Status Reason Start Date Expiration Date V isits Requested Visits Authorized [id number] Authorized 02/11/2024 02/10/2025 1 1 Specialty Diagnoses / Procedures Referred By Contac t Referred To Contact Diagnoses Chronic obstructive pulmonary disease, unspecified COPD type (HCC) Stephany Pelayo PA-C [address] [address] Referral ID Status Reason Start Date Expiration Date Visits Re quested Visits Authorized [id number] Closed 1 1 Specialty Diagnoses / Procedures Referred By Contac t Referred To Contact Rehabilitation Diagnoses Chronic pain syndrome DDD (degenerative disc disease), lumbar Lumbar radiculopathy Jim Velez DO [address] [place] [address] Referral ID Status Reason Start Date Expiration Date V isits Requested Visits Authorized [id number] Authorized 12/08/2023 12/07/2024 1 1 Specialty Diagnoses / Procedures Referred By Contac t Referred To Contact Diagnoses Type 2 diabetes mellitus with diabetic polyneuropathy, with long-term current use of insulin (HCC) Sahara Sanchez MD [address] [place] [address] Referral ID Status Reason Start Date Expiration Date V isits Requested Visits Authorized [id number] Pending Review 1 1 Specialty Diagnoses / Procedures Referred By Contac t Referred To Contact Diagnoses Lacunar stroke ([facility]) Procedures Thrombotic Risk Screen Virgen Campos MD [address] [place] [address] Referral ID Status Reason Start Date Expiration Date V isits Requested Visits Authorized [id number] Pending Review 09/16/2023 09/15/2024 1 1 Specialty Diagnoses / Procedures Referred By Contac t Referred To Contact Otolaryngology Diagnoses Hearing loss of left ear, unspecified hearing loss type Virgen Campos MD [address] [facility] 2 [place] [address] Map Ent [place] [address] [facility] 1 [place] [address] Referral ID Status Reason Start Date Expiration Date Visits Requested Visits Authorized [id number] Authorized Specialty Services Required/Pat ient's Best Interest 09/16/2023 09/15/2024 1 1 Specialty Diagnoses / Procedures Referred By Contac t Referred To Contact Neurology Diagnoses Seizure (HCC) Procedures EEG (Standard) Virgen Campos MD [address] [address] Referral ID Status Reason Start Date Expiration Date V isits Requested Visits Authorized [id number] Pending Review 09/16/2023 09/15/2024 1 1 Specialty Diagnoses / Procedures Referred By Contac t Referred To Contact Pulmonary Disease Diagnoses Subacute cough Family history of pulmonary fibrosis Stephany Pelayo PA-C [address] [address] Neida Dominguez MD [address] [place] [address] Referral ID Status Reason Start Date Expiration Date Visits Requested Visits Authorized [id number] Authorized Patient Preference 10/29/2023 10/28/2024 1 1 Specialty Diagnoses / Procedures Referred By Contac t Referred To Contact Radiology Diagnoses RUQ abdominal pain Procedures US Abdomen Complete Stephany Pelayo PA-C [address] [address] Central Scheduling [address] [place] [address] Referral ID Status Reason Start Date Expiration Date V isits Requested Visits Authorized [id number] Authorized 10/13/2023 10/12/2024 1 1 Specialty Diagnoses / Procedures Referred By Contac t Referred To Contact Pulmonology Diagnoses Subacute cough Family history of pulmonary fibrosis Stephany Pelayo PA-C [address] [place] [address] Merrick Almanza MD [address] [place] [address] Referral ID Status Reason Start Date Expiration Date Visits Re quested Visits Authorized [id number] Closed 10/13/2023 10/12/2024 1 1 Specialty Diagnoses / Procedures Referred By Contac t Referred To Contact Urology Diagnoses Incontinence in female AwastyHarris MD [address] [place] [address] [facility] [place] [address] [place] [address] Referral ID Status Reason Start Date Expiration Date V isits Requested Visits Authorized [id number] Authorized 06/22/2023 06/21/2024 1 1 Specialty Diagnoses / Procedures Referred By Contac t Referred To Contact Home Health Services Diagnoses Diabetic ulcer of right foot associated with type 2 diabetes mellitus, unspecified part of foot, unspecified ulcer stage (HCC) Left-sided weakness Visual loss, left eye Stephany Pelayo PA-C [address] [place] [address] Referral ID Status Reason Start Date Expiration Date Visits Requested Visits Authorized [id number] Pending Review Patient Preference 3 05/14/2024 1 1 Specialty Diagnoses / Procedures Referred By Contac t Referred To Contact Home Health Services Diagnoses Generalized weakness Diabetic ulcer of right foot associated with type 2 diabetes mellitus, unspecified part of foot, unspecified ulcer stage (HCC) Muscle spasms of both lower extremities Stephany Pelayo PA-C [address] [address] Referral ID Status Reason Start Date Expiration Date Visits Requested Visits Authorized [id number] Pending Review Specialty Services Required/Pat ient's Best Interest 05/05/2024 1 1 Specialty Diagnoses / Procedures Referred By Contac t Referred To Contact Obstetrics/Gynecology Diagnoses Screening for cervical cancer Stephany Pelayo PA-C [address] [address] Timothy Banegas MD [address] [place] [address] Referral ID Status Reason Start Date Expiration Date Visits Requested Visits Authorized [id number] Closed Patient Preference 05/06/2023 05/05/2024 1 1 Specialty Diagnoses / Procedures Referred By Contac t Referred To Contact Ophthalmology Diagnoses Type 2 diabetes mellitus with diabetic polyneuropathy, with long-term current use of insulin (HCC) Stephany Pelayo PA-C [address] [address] [facility] [address] [place] [address] Referral ID Status Reason Start Date Expiration Date V isits Requested Visits Authorized [id number] Authorized 05/06/2023 05/05/2024 1 1 Specialty Diagnoses / Procedures Referred By Contac t Referred To Contact Radiology Diagnoses Encounter for screening mammogram for malignant neoplasm of breast Procedures Mammography Screening [place] Bilateral Stephany Pelayo PA-C [address] [address] Central Scheduling [facility] [place] [address] Referral ID Status Reason Start Date Expiration Date V isits Requested Visits Authorized [id number] Authorized 05/06/2023 05/05/2024 1 1 Specialty Diagnoses / Procedures Referred By Contac t Referred To Contact Cardiology Diagnoses S/P placement of cardiac pacemaker Chronic chest pain Stephany Pelayo PA-C [address] [address] Map Cardio [facility] 1 [address] [place] [address] Referral ID Status Reason Start Date Expiration Date V isits Requested Visits Authorized [id number] Authorized 05/06/2023 05/05/2024 1 1 Specialty Diagnoses / Procedures Referred By Contac t Referred To Contact Endocrinology Diagnoses Type 2 diabetes mellitus with diabetic polyneuropathy, with long-term current use of insulin (HCC) Diabetic peripheral neuropathy (HCC) Stephany Pelayo PA-C [address] [place] [address] [place] [address] Map Endo [facility] [address] [place] [address] Referral ID Status Reason Start Date Expiration Date V isits Requested Visits Authorized [id number] Authorized 05/06/2023 05/05/2024 1 1 Specialty Diagnoses / Procedures Referred By Contac t Referred To Contact Stephany Pelayo PA-C [address] [place] [address] Referral ID Status Reason Start Date Expiration Date Visits Re quested Visits Authorized [id number] Closed 1 1 Specialty Diagnoses / Procedures Referred By Contac t Referred To Contact Psychiatry Diagnoses Bipolar 1 disorder (HCC) Insomnia, unspecified type Stephany Pelayo PA-C [address] [place] [address] [facility] Psych [place] [address] [place] [address] Referral ID Status Reason Start Date Expiration Date V isits Requested Visits Authorized [id number] Authorized 05/06/2023 05/05/2024 1 1 Specialty Diagnoses [...] Cellulitis of chin Harshad Rizzo MD [address] [place] [address] Referral ID Status Reason Start Date Expiration Date Visits Requested Visits Authorized [id number] Authorized Patient Preference 03/31/2023 03/30/2024 1 1 Specialty Diagnoses / Procedures Referred By Contac t Referred To Contact Care Management Diagnoses Chest pain, moderate coronary artery risk Diabetic peripheral neuropathy (HCC) Seizure disorder (HCC) Morbid obesity (HCC) Harshad Rizzo MD [address] [place] [id number] [facility] [address] [facility] [place] [address] Referral ID Status Reason Start Date Expiration Date V isits Requested Visits Authorized [id number] Authorized 03/30/2023 03/29/2024 1 1 Specialty Diagnoses / Procedures Referred By Contac t Referred To Contact Endocrinology Diagnoses Type 2 diabetes mellitus with other specified complication, unspecified whether press tender long goods insulin use ([facility]) Harshad Rizzo MD [address] [place] [address] [place] [address] [place] [address] Referral ID Status Reason Start Date Expiration Date Visits Requested Visits Authorized [id number] Pending Review Specialty Services Required/Pat ient's Best [...] xray results. Radiology said they would call [place]. Formatting of this note may be different from the original. ED PROVIDER NOTE [facility] NAME: Addie Jean Baptiste AGE: 42 y.o. : 1975 VISIT DATE: 06/26/2017 CSN: [id number] PCP: Cem Mario DO Clinical Impression: SNOMED CT(R) 1. Acute exacerbation of chronic low back pain CHRONIC LOW BACK PAIN Follow-up Information 1. Cem Mario DO. Specialty: Family Medicine [address] [place] [address] Contact information for after-discharge care Follow-up information [...] reports that she was eating dinner at [place] [employer] and when she was leaving she lifted [...] (Standard) Final Result No acute bony abnormalities. [facility] Workstation ID: [id number] [id number] Lumbar Spine 2-3 Views (Standard) (Results Pending) Procedures . New Prescriptions CYCLOBENZAPRINE (FLEXERIL) 10 MG TABLET Take 1 (one) tablet (10 mg total) by mouth 3 (three) times a day as needed for muscle spasms. Michi San DO, FACEP Attending Physician [facility] Emergency Department Michi Thrasher DO Jaswinder 06/26/172158 Pt back from radiology Pt to radiology Report received from JAEL Franks. Pt resting on cot, texting. Pt tearful, states that her pain is 10/10 between her shoulders and down her back. Denies needs at this time, call light within reach. Report given to: Rita ELDER Pt states she was at [place] [employer] eating and then upon leaving went to [...] This RN was notified by pharmacist that [facility] does not carry vraylar and could the [...] DATE CREATED AUTHOR AUTHOR'S ORGANIZ ATION 11/13/2017 [facility] DATE CREATED AUTHOR AUTHOR'S ORGANIZ ATION 07/13/2018 [facility] DATE CREATED AUTHOR AUTHOR'S ORGANIZ ATION 04/12/2019 [facility] DATE CREATED AUTHOR AUTHOR'S ORGANIZ ATION 08/22/2019 [facility] DATE CREATED AUTHOR AUTHOR'S ORGANIZ ATION 12/12/2021 [facility] [place] DATE CREATED AUTHOR AUTHOR'S ORGANIZ ATION 10/08/2022 [facility] DATE CREATED AUTHOR AUTHOR'S ORGANIZ ATION 11/05/2022 [facility] DATE CREATED AUTHOR AUTHOR'S ORGANIZ ATION 02/26/2023 [facility] DATE CREATED AUTHOR AUTHOR'S ORGANIZ ATION 04/01/2023 [facility] DATE CREATED AUTHOR AUTHOR'S ORGANIZ ATION 05/22/2023 [facility] Professional Services DATE CREATED AUTHOR AUTHOR'S ORGANIZ ATION 10/29/2023 [facility] DATE CREATED AUTHOR AUTHOR'S ORGANIZ ATION 03/26/2024 [facility] DATE CREATED AUTHOR AUTHOR'S ORGANIZ ATION 07/06/2024 [facility] dical Specialists EPIC DATE CREATED AUTHOR AUTHOR'S ORGANIZ ATION 08/05/2024 [facility] DATE CREATED AUTHOR AUTHOR'S ORGANIZ ATION 09/04/2024 [facility] jose a DATE CREATED AUTHOR AUTHOR'S ORGANIZ ATION 10/21/2024 [facility] DATE CREATED AUTHOR AUTHOR'S ORGANIZ ATION 10/30/2024 [facility] DATE CREATED AUTHOR AUTHOR'S ORGANIZ ATION 11/13/2024 [facility] DATE CREATED AUTHOR AUTHOR'S ORGANIZ ATION 11/19/2024 [facility] DATE CREATED AUTHOR AUTHOR'S ORGANIZ ATION 12/07/2024 [facility] DATE CREATED AUTHOR AUTHOR'S ORGANIZ ATION 12/11/2024 [facility] DATE CREATED AUTHOR AUTHOR'S ORGANIZ ATION 12/31/2024 [facility] y[facility] Reason for Visit (unrecogniz ed section and content) Reason Comments Weakness Specialty Diagnoses / Procedures Referred By Contac t Referred To Contact Referral ID Status Reason Start Date Expiration Date Visits Re quested Visits Authorized [id number] 1 1 Reason Comments Diabetes Reason Comments Wound Infection Status Reason Specialty Diagnoses / Procedures Referre d By Contact Referred To Contact Diagnoses Diabetic foot infection (HCC) Type 2 diabetes mellitus with left diabetic foot infection (HCC) Diabetic infection of left foot (HCC) Reason Comments Seizures 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 Reason Comments Chart Transfer from [facility] Fitzpatrick for MRI Reason Comments Pain NEW PATIENTRT KNEE P AIN, fell 01/19/23 went to [facility] Reason Comments Chest Pain Specialty Diagnoses / Procedures Referred By Contac t Referred To Contact Diagnoses Flank pain Chest pain, unspecified type Referral ID Status Reason Start Date Expiration Date Visits Re quested Visits Authorized [id number] 1 1 Reason Comments Chest Pain Specialty Diagnoses / Procedures Referred By Contac t Referred To Contact Diagnoses Chest pain Chest pain, moderate coronary artery risk Referral ID Status Reason Start Date Expiration Date Visits Re quested Visits Authorized [id number] 1 1 Specialty Diagnoses / Procedures Referred [...] unspecified type Stephany Pelayo PA-C [address] [place] [address] [facility] [place] [address] [facility] [address] [place] [address] Referral ID Status Reason Start Date Expiration Date Visits Re quested Visits Authorized [id number] Closed 05/06/2023 05/05/2024 1 1 Reason Onset [...] retinopathy severity Jessica Puentes MD [address] [address] [facility] [address] [place] [address] Referral ID Status Reason Start Date Expiration Date V isits Requested Visits Authorized [id number] New Request 11/09/2023 12/03/2024 1 1 Reason Onset Date Comments Medication Refill 11/12/2023 Reason Comments Establish Care seizures Specialty Diagnoses / Procedures Referred By Richa ruff Referred To Contact Neurology Diagnoses Seizures (HCC) Fab Head MD [address] [address] Virgen Campos MD [address] [address] Referral ID Status Reason Start Date Expiration Date V isits Requested Visits Authorized [id number] Pending Review 01/14/2023 01/15/2024 1 1 Reason [...] Diabetic peripheral neuropathy (HCC) Stephany Pelayo PA-C [address] [place] [address] [facility] [address] [place] [address] Referral ID Status Reason Start Date Expiration Date Visits Re quested Visits Authorized [id number] Closed 05/06/2023 05/05/2024 1 1 Reason Onset Date Comments Medication Refill 12/07/2023 Reason Comments Pain VAS= 9/10 ANIA CONSENT YES Back Pain Thoracic to lumbar p ain Specialty Diagnoses / Procedures Referred By Richa t Referred To Contact Pain Medicine Diagnoses Chronic pain syndrome Muscle spasms of both lower extremities Stephany Pelayo PA-C [facility] 2 [place] [address] [facility] [address] [place] [address] Referral ID Status Reason Start Date Expiration Date Visits Re quested Visits Authorized [id number] Closed 09/03/2023 09/02/2024 1 1 Reason Onset [...] Expiration Date Visits Re quested Visits Authorized [id number] 1 1 Reason Onset Date Comments Care [...] Medication Refill 03/22/2024 Reason Onset Date Comments [facility] 03/30/2024 Reason Comments Toe Pain Specialty Diagnoses / Procedures Referred By Richa t Referred To Contact Diagnoses Elevated troponin SIRS (systemic inflammatory response syndrome) (HCC) Toe osteomyelitis (HCC) Diabetes mellitus due to underlying condition with hyperglycemia, with long-term current use of insulin (HCC) Osteomyelitis of great toe (HCC) Referral ID Status Reason Start Date Expiration Date Visits Re quested Visits Authorized [id number] 1 1 Reason Onset Date Comments Medication Refill 04/12/2024 Reason Onset Date Comments Medication Refill 04/28/2024 Reason Comments Post-op Problem Toe Pain Specialty Diagnoses / Procedures Referred By Richa t Referred To Contact Diagnoses Diabetic foot infection (HCC) Postoperative infection, unspecified type, initial encounter Referral ID Status Reason Start Date Expiration Date Visits Re quested Visits Authorized [id number] 1 1 Reason Comments Pain VAS 8/10 [...] insulin Stephany Pelayo PA-C Phone: tel: fax: [facility] [address] [place] [address] Referral ID Status Reason Start Date Expiration Date V isits Requested Visits Authorized [id number] Pending Review 07/19/2024 08/13/2025 1 1 Reason Onset Date Comments Medication Refill 11/21/2024 Reason Onset Date Comments Medication Refill 12/19/2024 Bridger Garner MD - 06/04/2020 1:07 PM EST H&P Notes (unrecognized sect ion and content) HISTORY AND PHYSICAL Patient Name: Addie Jean Baptiste Admit Date: [id number] MR #: [id number] : 1975 Physicians: Provider Not in System [...] PT/OT Hibiclens Lactate elevated, will monitor Seizures ([facility]) Assessment & Plan Continue home keppra, depakote Bipolar 1 disorder ([facility]) Assessment & Plan No evidence of denys at this time Continue home seroquel, buspar, vraylar Hypertension Assessment & Plan Continue home lopressor Diabetes mellitus type II, uncontrolled ([facility]) Assessment & Plan A1c 10.2% On insulin [...] file Gets together: Not on file Attends scientologist service: Not on file Active member of [...] pick it up tomorrow at pharmacy - [facility] in [place] . FLUoxetine (PROZAC) 40 MG capsule Take [...] Associated Order(s): Critical Care ED PROVIDER NOTE [facility] NAME: Addie Jean Baptiste AGE: 45 y.o. : 1975 VISIT DATE: 06/03/2020 CSN: [id number] PCP: Provider Not in System Chief Complaint Patient presents with Wound Infection For the past week her left first toe has been inflamed. Two days ago she became aware of some serous drainage from her toe. On 06/02/2020 she was seen at [facility], and was started on Keflex at [...] file Gets together: Not on file Attends scientologist service: Not on file Active member of [...] injuries to toe. Pt verbalizes was at [facility] yesterday and they did nothing for me . Pt did acknowledge she got antibiotics. 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 Relationship Specialty Start Date End Date Cem Mario DO [address] [place] [address] PCP - General Family Medicine 05/28/15 Team Status: Active Member Role Status Dates Kip W [place] , GREEN CHAIN OFFBEARER-C Primary Care Provider Active Jacob Farfan , DO Emergency Provider Active Ezekiel Mathew , DO Admit Provider, Attending Pr ovidgabriela Active Team Status: Inactive Member Role Status Dates Kip W [place] , GREEN CHAIN OFFBEARER-C Primary Care Provider Active Jacob Farfan , DO Emergency Provider Active Ezekiel Mathew , DO Admit Provider Active Lawrence Kim MD Other Provider Active Swapnil Castillo DPM Other Provider Active Shameka Romero MD Other Provider Active Jeana Martini MD Attending Provider Active Team Status: Inactive Member Role Status Dates Kip W Nattyruma , GREEN CHAIN OFFBEARER-C Primary Care Provider Active Shameka Romero MD Attending Provider Active Radiator Fitter Relationship Specialty Start Date End Date System, Provider Not In PCP - General 01/12/23 Radiator Fitter Relationship Specialty Start Date End Date System, Provider Not In PCP - General 01/12/23 Radiator Fitter Relationship Specialty Start Date End Date System, Provider Not In PCP - General 01/12/23 Radiator Fitter Relationship Specialty Start Date End Date System, Provider Not In PCP - General 01/12/23 03/29/23 Enrique Hebert DO [address] [place] [address] PCP - General Primary Care 03/30/23 Radiator Fitter Relationship Specialty Start Date End Date Enrique Hebert DO [address] [place] [address] PCP - General Primary Care 03/30/23 Radiator Fitter Relationship Specialty Start Date End Date Enrique Hebert DO [address] [place] [address] PCP - General Primary Care 03/30/23 Radiator Fitter Relationship Specialty Start Date End Date Enrique pisano DO [address] [place] [address] PCP - General Primary Care 03/30/23 Radiator Fitter Relationship Specialty Start Date End Date Enrique Hebert DO [address] [place] [address] PCP - General Primary Care 03/30/23 Radiator Fitter Relationship Specialty Start Date End Date Enrique Hebert DO [address] [place] [address] PCP - General Primary Care 03/30/23 Radiator Fitter Relationship Specialty Start Date End Date Enrique Hebert DO [address] [place] [address] PCP - General Primary Care 03/30/23 Radiator Fitter Relationship Specialty Start Date End Date Enrique Hebert DO [address] [place] [address] PCP - General Primary Care 03/30/23 Radiator Fitter Relationship Specialty Start Date End Date Enrique Hebert DO [address] [place] [address] PCP - General Primary Care 03/30/23 Radiator Fitter Relationship Specialty Start Date End Date Enrique Hebert DO [address] [place] [address] PCP - General Primary Care 03/30/23 Radiator Fitter Relationship Specialty Start Date End Date Enrique Hebert DO [address] [place] [address] PCP - General Primary Care 03/30/23 Radiator Fitter Relationship Specialty Start Date End Date Enrique Hebert DO [address] [place] [address] [place] [address] PCP - General Primary Care 03/30/23 Radiator Fitter Relationship Specialty Start Date End Date Enrique pisano DO [address] [place] [address] PCP - General Primary Care 03/30/23 Radiator Fitter Relationship Specialty Start Date End Date Enrique pisano DO [address] [place] [address] PCP - General Primary Care 03/30/23 Radiator Fitter Relationship Specialty Start Date End Date aliyaEnrique DO [address] [place] [address] PCP - General Primary Care 03/30/23 Radiator Fitter Relationship Specialty Start Date End Date aliya Enrique, DO [address] [place] [address] PCP - General Primary Care 03/30/23 Radiator Fitter Relationship Specialty Start Date End Date aliya DO Enrique [address] [place] [address] PCP - General Primary Care 03/30/23 Radiator Fitter Relationship Specialty Start Date End Date Sheng pisanoDO jim [address] [place] [address] PCP - General Primary Care 03/30/23 Radiator Fitter Relationship Specialty Start Date End Date aliya DO Enrique [address] [place] [address] PCP - General Primary Care 03/30/23 Radiator Fitter Relationship Specialty Start Date End Date Enrique Hebert DO [address] [place] [address] PCP - General Primary Care 03/30/23 Radiator Fitter Relationship Specialty Start Date End Date Enrique Hebert DO [address] [place] [address] PCP - General Primary Care 03/30/23 04/29/23 No, Physician [facility] PCP - General 04/30/23 05/05/23 Stephany Pelayo PA-C [address] [place] [address] PCP - General Internal Medicine 05/06/23 Radiator Fitter Relationship Specialty Start Date End Date Stephany Pelayo PA-C [address] [place] [address] PCP - General Internal Medicine 05/06/23 Radiator Fitter Relationship Specialty Start Date End Date Stephany Pelayo PA-C [address] [place] [address] PCP - General Internal Medicine 05/06/23 Marcia Reynoso, database analystInterior Plant Caretaker 05/14/23 Radiator Fitter Relationship Specialty Start Date End Date Stephany Pelayo PA-C [address] [place] [address] PCP - General Internal Medicine 05/06/23 Marcia Reynoso, database analystInterior Plant Caretaker 05/14/23 Radiator Fitter Relationship Specialty Start Date End Date Stephany Pelayo PA-C [address] [place] [address] PCP - General Internal Medicine 05/06/23 Marcia Reynoso, database analystInterior Plant Caretaker 05/14/23 Radiator Fitter Relationship Specialty Start Date End Date Stephany Pelayo PA-C [address] [place] [address] PCP - General Internal Medicine 05/06/23 Marcia Reynoso, database analystInterior Plant Caretaker 05/14/23 Radiator Fitter Relationship Specialty Start Date End Date Stephany Pelayo PA-C [address] [place] [address] [phone] PCP - General Internal Medicine 05/06/23 Marcia Reynoso, database analystInterior Plant Caretaker 05/14/23 Radiator Fitter Relationship Specialty Start Date End Date Enrique Hebert [address] [place] [address] PCP - General Primary Care 03/30/23 04/29/23 No, Physician [facility] PCP - General 04/30/23 05/05/23 Stephany Pelayo PA-C [address] [place] [address] [phone] PCP - General Internal Medicine 05/06/23 Marcia Reynoso, database analystInterior Plant Caretaker 05/14/23 Radiator Fitter Relationship Specialty Start Date End Date Stephany Pelayo PA-C [address] [place] [address] 51058 PCP - General Internal Medicine 05/06/23 Marcia Reynoso, database analystInterior Plant Caretaker 05/14/23 Radiator Fitter Relationship Specialty Start Date End Date Stephany Pelayo PA-C [address] [place] [address] [phone] PCP - General Internal Medicine 05/06/23 Marcia Reynoso, database analystInterior Plant Caretaker 05/14/23 Radiator Fitter Relationship Specialty Start Date End Date Stephany Pelayo PA-C [address] [place] [address] 85220 PCP - General Internal Medicine 05/06/23 Marcia Reynoso, database analystInterior Plant Caretaker 07/30/23 Radiator Fitter Relationship Specialty Start Date End Date Stephany Pelayo PA-C [address] [place] [address] 24438 PCP - General Internal Medicine 05/06/23 Radiator Fitter Relationship Specialty Start Date End Date Lexy Leach MD [address] [place] [phone] PCP - General Clinical Cardiac Electrophysiology 09/23/16 Cherelle Fierro MD [address] [place] [address], [address] [phone] Family Medicine 01/30/12 Cem Mario DO [address] [place] [address] Consulting Physician Family Medicine 03/20/17 Radiator Fitter Relationship Specialty Start Date End Date Stephany Pelayo PA-C [address] [place] [address] [phone] PCP - General Internal Medicine 05/06/23 Radiator Fitter Relationship Specialty Start Date End Date Stephany Pelayo PA-C [address] [place] [address] 32603 PCP - General Internal Medicine 05/06/23 Radiator Fitter Relationship Specialty Start Date End Date Stephany Pelayo PA-C [address] [facility] [address] [place] [address] PCP - General Internal Medicine 05/06/23 Radiator Fitter Relationship Specialty Start Date End Date Stephany Pelayo PA-C [address] [place] [address] [address] [place] [address] PCP - General Internal Medicine 05/06/23 Radiator Fitter Relationship Specialty Start Date End Date Stephany Pelayo PA-C [address] [place] [address] 2 [place] [address] PCP - General Internal Medicine 05/06/23 Marcia Reynoso, database analystInterior Plant Caretaker 09/21/23 Radiator Fitter Relationship Specialty Start Date End Date Stephany Pelayo PA-C [address] [place] [address] 2 [place] [address] PCP - General Internal Medicine 05/06/23 Marcia Reynoso, database analystInterior Plant Caretaker 09/21/23 09/23/23 Radiator Fitter Relationship Specialty Start Date End Date Stephany Pelayo PA-C [address] [place] [address], [place] [address] PCP - General Internal Medicine 05/06/23 Radiator Fitter Relationship Specialty Start Date End Date Stephany Pelayo PA-C [address] [place] [address] [address] [place] [address] PCP - General Internal Medicine 05/06/23 Radiator Fitter Relationship Specialty Start Date End Date Stephany Pelayo PA-C [facility] [address] [facility] [address] [place] [address] PCP - General Internal Medicine 05/06/23 Radiator Fitter Relationship Specialty Start Date End Date Stephany Pelayo PA-C [address] [address] PCP - General Internal Medicine 05/06/23 Radiator Fitter Relationship Specialty Start Date End Date Stephany Pelayo PA-C [address] [place] [address] PCP - General Internal Medicine 05/06/23 Radiator Fitter Relationship Specialty Start Date End Date Stephany Pelayo PA-C [address] [place] [address] PCP - General Internal Medicine 05/06/23 Radiator Fitter Relationship Specialty Start Date End Date Stephany Pelayo PA-C [address] [place] [address] 37069 PCP - General Internal Medicine 05/06/23 Radiator Fitter Relationship Specialty Start Date End Date Lexy Leach MD [address] [place] [phone] PCP - General Clinical Cardiac Electrophysiology 09/23/16 Cherelle Fierro MD [address] [place] [address], [address] [phone] Family Medicine 01/30/12 Cem Mario DO [address] [facility] [place] [address] Consulting Physician Family Medicine 03/20/17 Radiator Fitter Relationship Specialty Start Date End Date Stephany Pelayo PA-C [address] [place] [phone] PCP - General Internal Medicine 05/06/23 Radiator Fitter Relationship Specialty Start Date End Date Stephany Pelayo PA-C [address] [place] [address] PCP - General Internal Medicine 05/06/23 Radiator Fitter Relationship Specialty Start Date End Date Stephany Pelayo PA-C [address] [place] [address] PCP - General Internal Medicine 05/06/23 Radiator Fitter Relationship Specialty Start Date End Date Stephany Pelayo PA-C [address] [place] [address] PCP - General Internal Medicine 05/06/23 Radiator Fitter Relationship Specialty Start Date End Date Stephany Pelayo PA-C [address] [place] [address] PCP - General Internal Medicine 05/06/23 Radiator Fitter Relationship Specialty Start Date End Date Stephany Pelayo PA-C [address] [facility] [address] [place] [address] PCP - General Internal Medicine 05/06/23 Radiator Fitter Relationship Specialty Start Date End Date Stephany Pelayo PA-C [address] [place] [address] PCP - General Internal Medicine 05/06/23 Radiator Fitter Relationship Specialty Start Date End Date Stephany Pelayo PA-C [address] [place] [address] PCP - General Internal Medicine 05/06/23 Radiator Fitter Relationship Specialty Start Date End Date Stephany Pelayo PA-C [address] [facility] [address] [place] [address] PCP - General Internal Medicine 05/06/23 Radiator Fitter Relationship Specialty Start Date End Date Stephany Pelayo PA-C [address] [facility] [address] [place] [address] PCP - General Internal Medicine 05/06/23 Radiator Fitter Relationship Specialty Start Date End Date Stephany Pelayo PA-C [address] [facility] [address] [place] [address] PCP - General Internal Medicine 05/06/23 Radiator Fitter Relationship Specialty Start Date End Date Stephany Pelayo PA-C [address] [facility] [address] [place] [address] PCP - General Internal Medicine 05/06/23 Radiator Fitter Relationship Specialty Start Date End Date Stephany Pelayo PA-C [address] [facility] [address] [place] [address] PCP - General Internal Medicine 05/06/23 Radiator Fitter Relationship Specialty Start Date End Date Stephany Pelayo PA-C [address] [facility] [address] [place] [address] PCP - General Internal Medicine 05/06/23 Swapnil Hooks Community Health Worker Case Management 01/27/24 Radiator Fitter Relationship Specialty Start Date End Date Stephany Pelayo PA-C [address] [facility] [address] [place] [address] PCP - General Internal Medicine 05/06/23 Jessee, Swapnil R Community Health Worker Case Management 01/27/24 Radiator Fitter Relationship Specialty Start Date End Date Stephany Pelayo PA-C [address] [place] [address] PCP - General Internal Medicine 05/06/23 Swapnil Hooks Community Health Worker Case Management 01/27/24 Radiator Fitter Relationship Specialty Start Date End Date Stephany Pelayo PA-C [address] [place] [address] PCP - General Internal Medicine 05/06/23 Swapnil Hooks Community Health Worker Case Management 01/27/24 Radiator Fitter Relationship Specialty Start Date End Date Stephany Pelayo PA-C [address] [place] [address] PCP - General Internal Medicine 05/06/23 Swapnil Hooks Community Health Worker Case Management 01/27/24 Radiator Fitter Relationship Specialty Start Date End Date Stephany Pelayo PA-C [address] [place] [address] PCP - General Internal Medicine 05/06/23 Radiator Fitter Relationship Specialty Start Date End Date Stephany Pelayo PA-C [address] [place] [address] PCP - General Internal Medicine 05/06/23 Swapnil Hooks Community Health Worker Case Management 01/27/[address] Dietitian Dietitian/Nutritionis t 02/04/24 Radiator Fitter Relationship Specialty Start Date End Date Stephany Pelayo PA-C [address] [place] [address] PCP - General Internal Medicine 05/06/23 Swapnil Hooks Community Health Worker Case Management 01/27/24 Radiator Fitter Relationship Specialty Start Date End Date Stephany Pelayo PA-C [address] [facility] [address] [place] [address] PCP - General Internal Medicine 05/06/23 Swapnil Hooks Community Health Worker Case Management 01/27/24 Radha Davalos, JULI Dietitian Dietitian/Nutritionis t 02/04/24 Radiator Fitter Relationship Specialty Start Date End Date Stephany Pelayo PA-C [address] [place] [address] PCP - General Internal Medicine 05/06/23 Swapnil Hooks Community Health Worker Case Management 01/27/2403/10 Radiator Fitter Relationship Specialty Start Date End Date Stephany Pelayo PA-C [address] [facility] [address] [place] [address] PCP - General Internal Medicine 05/06/23 Radiator Fitter Relationship Specialty Start Date End Date Stephany Pelayo PA-C [address] [facility] [address] [place] [address] PCP - General Internal Medicine 05/06/23 Radiator Fitter Relationship Specialty Start Date End Date Stephany Pelayo PA-C [address] [facility] [address] [place] [address] PCP - General Internal Medicine 05/06/23 Radiator Fitter Relationship Specialty Start Date End Date Stephany Pelayo PA-C [address] [facility] [address] [place] [address] PCP - General Internal Medicine 05/06/23 Radiator Fitter Relationship Specialty Start Date End Date Stephany Pelayo PA-C [address] [place] [address] PCP - General Internal Medicine 05/06/23 Radiator Fitter Relationship Specialty Start Date End Date Stephany Pelayo PA-C [address] [place] [address] PCP - General Internal Medicine 05/06/23 Radiator Fitter Relationship Specialty Start Date End Date Stephany Pelayo PA-C [address] [place] [address] PCP - General Internal Medicine 05/06/23 Radiator Fitter Relationship Specialty Start Date End Date Stephany Pelayo PA-C [address] [place] [address] PCP - General Internal Medicine 05/06/23 Radiator Fitter Relationship Specialty Start Date End Date Stephany Pelayo PA-C [address] [place] [address] PCP - General Internal Medicine 05/06/23 Radiator Fitter Relationship Specialty Start Date End Date Stephany Pelayo PA-C [address] [place] [address] PCP - General Internal Medicine 05/06/23 Radiator Fitter Relationship Specialty Start Date End Date Stephany Pelayo PA-C [address] [place] [address] PCP - General Internal Medicine 05/06/23 Radiator Fitter Relationship Specialty Start Date End Date Stephany Pelayo PA-C [address] [place] [address] PCP - General Internal Medicine 05/06/23 Radiator Fitter Relationship Specialty Start Date End Date Stephany Pelayo PA-C [address] [place] [address] 31439 PCP - General Internal Medicine 05/06/23 Radiator Fitter Relationship Specialty Start Date End Date Stephany Pelayo PA-C [address] [place] [address] 17948 PCP - General Internal Medicine 05/06/23 Radiator Fitter Relationship Specialty Start Date End Date Stephany Pelayo PA-C [address] [place] [address] 28991 PCP - General Internal Medicine 05/06/23 Radiator Fitter Relationship Specialty Start Date End Date Unallocated, Noms Brendan, [address] [place] [address] PCP - General Family Medicine 07/05/24 Jim Velez MD [address] [place] [address] Referring Physician Pain Medicine 07/05/24 Radiator Fitter Relationship Specialty Start Date End Date Stephany Pelayo PA-C [address] [place] [address] PCP - General Internal Medicine 05/06/23 Radiator Fitter Relationship Specialty Start Date End Date Stephany Pelayo PA-C [address] [place] [address] PCP - General Internal Medicine 05/06/23 Radiator Fitter Relationship Specialty Start Date End Date Stephany Pelayo PA-C [address] [facility] [address] [place] [address] PCP - General Internal Medicine 05/06/23 Radiator Fitter Relationship Specialty Start Date End Date Stephany Pelayo PA-C [address] [facility] [address] [place] [address] PCP - General Internal Medicine 05/06/23 Radiator Fitter Relationship Specialty Start Date End Date Stephany Pelayo PA-C [address] [facility] [address] [place] [address] PCP - General Internal Medicine 05/06/23 Radiator Fitter Relationship Specialty Start Date End Date Stephany Pelayo PA-C [address] [facility] [address] [place] [address] PCP - General Internal Medicine 05/06/23 Radiator Fitter Relationship Specialty Start Date End Date Stephany Pelayo PA-C [address] [facility] [address] [place] [address] PCP - General Internal Medicine 05/06/23 Radiator Fitter Relationship Specialty Start Date End Date Stephany Pelayo PA-C [address] [facility] [address] [place] [address] PCP - General Internal Medicine 05/06/23 Radiator Fitter Relationship Specialty Start Date End Date Stephany Pelayo PA-C [address] [facility] [address] [place] [address] PCP - General Internal Medicine 05/06/23 Radiator Fitter Relationship Specialty Start Date End Date Stephany Pelayo PA-C [address] [place] [address] PCP - General Internal Medicine 05/06/23 Radiator Fitter Relationship Specialty Start Date End Date Stephany Pelayo PA-C [address] [place] [address] PCP - General Internal Medicine 05/06/23 Radiator Fitter Relationship Specialty Start Date End Date Stephany Pelayo PA-C [address] [place] [address] PCP - General Internal Medicine 05/06/23 Radiator Fitter Relationship Specialty Start Date End Date Lexy sultana MD [address] [place] [address] PCP - General Clinical Cardiac Electrophysiology 09/23/16 Cherelle Fierro MD [address] [place] [phone] Family Medicine 01/30/12 Cem Mario, [address] [place] [phone] Consulting Physician Family Medicine 03/20/17 Radiator Fitter Relationship Specialty Start Date End Date Stephany Pelayo PA-C [address] [place] [address] PCP - General Internal Medicine 05/06/23 11/14/24 Radiator Fitter Relationship Specialty Start Date End Date Radha [...] hours 1415 (Canceled Entry - Provider: Rafaela Caasrez LPN - Comment: duplicate)9388 (New Bag - Provider: Dannielle Jeong, RN) [...] PRN, anxiety, Starting on Danelle 02/19/23 at 6145 5550 (Given - Provider: Dannielle Jeong, JAEL) magnesium [...] at 2024, Give with Food flu vacc [id number] 6mos up(PF) (FLUZONE QUAD/FLULAVAL QUAD/FLUARIX QUAD) syringe [...] Provider: Laura Levin RN)2310 (Given - Provider: Dnonell Fowler RN) 09 (Given - Provider: Laura Levin RN)232 (Given - Provider: Laura Lechuga RN) 09 (Given - Provider: Kvng Portillo) citalopram (CELEXA) [...] SC NIGHTtime 2099 (Given - Provider: Ruby Lujan, RN) 2131 (Not Given - Provider: Dannielle [...] Drug. Waste Must Be Disposed in [employer] 0904 (Patch Applied - Provider: [...] Dannielle Jeong, JAEL) 0857 (Given - Provider: Ifemoa Waterman, JAEL) QUEtiapine (SEROQUEL) tablet 800 mg [...] Nicolette Coffey, JAEL)1757 (Given - Provider: Nicolette Coffey [...] Provider: Kyrie Gonzalez RN)0742 (Stopped - Provider: uZly Benjamin RN)1324 (New Bag - Provider: Zuly [...] 0835 (Given - Provider: Rafael Chavira, RN) insulin glargine (LANTUS, SEMGLEE) injection [...] Uzma Mcpherson RN)0943 (Rate/Dose Verify - Provider: zUma Mcpherson RN)1031 (Rate/Dose Change - Provider: Uzma [...] Uzma Mcpherson RN)0626 (Rate/Dose Verify - Provider: Uzma Mcpherson RN)0907 (Rate/Dose Change - Provider: Uzma Mcpherson RN)0909 (Stop Bag - Provider: Uzma Mcpherson RN)0911 (New Bag - Provider: Uzma Mcpherson RN - Comment: [Order ends at this time. Document the following action when infusion is complete: Stop Bag])0922 (Stop Bag - Provider: Uzma Mcpherson RN)0923 (Restarted - Provider: Uzma Mcpherson RN)1727 (Stop Bag - Provider: Uzma Mcpherson RN [...] to dextrose-containing formulation, DO NOT change to opu-jvmeelqo-luqtnqcuep IV fluid if blood glucose exceeds 250 mg/dL. 0843 (New Bag - Provider: Uzma Mcpherson RN)0956 (Paused - Provider: Uzma Mcpherson RN)0958 (Restarted - Provider: Uzma Mcpherson RN)1236 (Rate/Dose Verify - Provider: Uzma Mcpherson RN)1724 (Stop Bag - Provider: Uzma Mcphersno RN) 0502 (New Bag - Provider: Shawna [...] to dextrose-containing formulation, DO NOT change to xcc-elbrdbpz-ihpjcvcmjc IV fluid if blood glucose exceeds 250 [...] BE BASED ON THE PRIMARY CLINICAL RECORDS. [facility] [employer] [facility]. provides no warranty or guarantee of the accuracy or completeness of information in this document.
== END 2025-01-04 14:24 ==
LOC: ER 19:00 → MS 20:15
PROVIDERS: Admitting Provider Internal Medicine; Emergency Provider Student in an Organized Health Care Education/Training Program; Visit Provider Hospitalist
DX: I69.354 Hemiplegia and hemiparesis following cerebral infarction affecting left non-dominant side (principal); Z95.0 Presence of cardiac pacemaker; F17.200 Nicotine dependence, unspecified, uncomplicated; R53.81 Other malaise; Z79.899 Other long term (current) drug therapy; Z79.4 Long term (current) use of insulin; E11.22 Type 2 diabetes mellitus with diabetic chronic kidney disease; E11.65 Type 2 diabetes mellitus with hyperglycemia; I12.9 Hypertensive chronic kidney disease with stage 1 through stage 4 chronic kidney disease, or unspecified chronic kidney disease; N18.32 Chronic kidney disease, stage 3b; G89.29 Other chronic pain; R56.9 Unspecified convulsions; E03.9 Hypothyroidism, unspecified; N17.9 Acute kidney failure, unspecified
CPT/HCPCS: 36415; 36591; 80048; 82948; 85025; 85027; 94640; 96372; 97110; 97161; 97165; 97530; 99285; G0378; J1642; J1644; Q0177

== ENCOUNTER 2025-03-01 15:51 | Outpatient (OUT) | payer OTHER, SELFPAY ==
--- OUTSIDE RECORDS SUMMARY | 2025-03-01 16:14 | XMS_ITS | CCD ---
Author Organization [facility] CliniSywv Care Team Providers Care Claims Adjudicator Name Role Phone Cem Mario Unavailable Unavailable [...] Un available Italo Headley Primary Care Physician [phone] Sarita Feliz Unavailable Unavailable Breanna Gu Primary Care Physician Winnie Grande Unavailable Unavailable Herlinda June Unavailable Cem Mario DO Primary Care Provider [phone] CEM MARIO Primary Care Unavailable ANTOINE SOSA Attending Unavailable Radha Dias Primary Care Physician [phone] Pool Heath Primary Care Physician LOLI Franco Primary Care Provider DO Jacob Farafn Emergency Provider DO Ezekiel Mathew Admit Provider DO Ezekiel Mathew Attending Provider [phone] MD Jeana Martini Attending Provider MD Lawrence Kim Other Provider LUPE Castillo Other Provider [phone] MD Shameka Romero Other Provider LOLI Franco Primary Care Provider DO Jacob Farfan Emergency Provider DO Ezekiel Mathew Admit Provider [phone] MD Lawrence Kim Other Provider LUPE Castillo Other Provider MD Shameka Romero Other Provider MD Jeana Martini Attending Provider LAURENT FRANCO Primary Care Physician Shameka Romero Unavailable MD Shameka Romero Attending Provider Unavailable Primary Care Provider Unavailabl e PROVIDER, [...] Unavailable KALLIE, DR AGUILERA Primary Care Unavailable BEDROCK, DR KO Bravo Consulting Unavailable KWADWO .RAFAELA Admitting Unavailable KHADAR GEORGE Consulting Unavailtheo REYES, HOLGER Consulting Unavailable KIRK CABALLERO Consulting Unavailable KWADWO Pollock RAFAELA Consulting Unavailable KALLIE, DR AGUILERA Primary Care Unavailable DR AUGUSTINE WHITTEN Admitting Unavailable DR AUGUSTINE WHITTEN Attending Unavailable DR AUGUSTINE WHITTEN Consulting Unavailable YOAN, DR POLO Lazcano Consulting Unavailable CARISA STILES Consulting Unavailable POLO ROLON Consulting Unavailable LISA HELM Consulting Unavailable KO HANSON Consulting Unavailable VELIA NAGEL Consulting Unavailable LAWRENCE HESTER Consulting Unavailable HILARIO QUEZADA Consulting Unavailable ROBB ., YESENIA Consulting Unavailable [...] MONIQUE Consulting Unavailable SISTER, EZEQUIEL Consulting Unavailable RADHA [...] e HAY ., DR JONES Admitting Unavailable DIAS RADHA Primary Care Unavailable HAY ., DR [...] Unavailable POLO ROLON Consulting Unavailable LAWRENCE COOPER Consulting Unavailable MISC, DR AGUILERA Primary Care Unavailable HAY ., DR JONES Attending Unavailable HAY ., DR JONES Admitting Unavailable HAY ., DR JONES Consulting Unavailable GRECHNY .KHADAR Consulting Unavailabl e MISC, DR AGUILERA Primary Care Unavailable HAY ., DR JONES Admitting Unavailable HAY ., DR JONES Attending Unavailable KLIPPKO SMITH Consulting Unavailable NEFCYMARISEL Consulting Unavailable SAMMI .JULIA Attending Unavailable MISC, DR AGUILERA Primary Care Unavailable JULIA THOMAS Admitting Unavailable System, Provider Not In Primary Care Provider Un available BREANNA BOLIVAR Consulting Unavailable BRIDGER GARNER Attending Unavailab le BRIDGER GARNER Admitting Unavailab le SYSTEM, PROVIDER NOT IN Primary Care Unavaila ble System, Provider Not In Primary Care Provider Un available [facility] [place] Primary Care Provider [facility] Primary Care Unavailable XIMENA RINCON Attending Unavailable [facility] Primary Care Provider [phone] No, Physician Primary Care Provider Unavailabl e Stephany Pelayo PA-C Primary Care Provider [phone] Angeles ELDER, Marcia Unavailable Unavailable Doctor, No Referring Unavailable Doctor, No Primary Care Unavailable Idalia Bruner Attending Unavailable Idalia Bruner Consulting Unavailable Angeles ELDER, Marcia Unavailable Unavailable Cherelle Fierro MD Unavailable Lexy Leach MD Primary Care Provider Cem Mario DO Unavailable Angeles RN, Marcia Unavailable Unavailable Angeles ELDER, Marcia Unavailable Unavailable JesseeSwapnil oliver Unavailable Unavailable Doles RD, Radha E Unavailable Unavailable JesseeSheys R Unavailable Unavailable [facility] Primary Care Unavailable HARSHAD RIZZO Referring Unavailable STEPHANY PELAYO Primary Care Unavailable HARSHAD RIZZO Referring Unavailable Stephany Pelayo PA-C Primary Care Provider Unavailable Primary Care Provider Unavailabl e Danaelobenito STEVENS, Shilas Provider Primary Care Provi arlene Jim Velez MD Unavailable Doctor, No Primary Care Provider UnavailVerena Bassett CNP Emergency Provider Doctor, No Consulting Unavailable Doctor, No Primary Care Unavailable Verena Kuhn Attending Unavailable Stephany Pelayo PA-C Primary Care Provider CARISA STILES Referring Unavailable ALICE, LARISSA Admitting Unavailable MAYE ORTIZ Attending Unavailable JUAN F NAVARRO Referring Unavailable BRO, SAMORLY Referring Unavailable BRO, SAMAR Referring Unavailable ALI, ELISABETH RAMIREZ Referring Unavailable NAZZAL, YURY Referring Unavailable Cem Mario DO Unavailable Unavailable JESSICA ROMEO Attending Unavailable STEPHANY PELAYO Referring Unavailable LEXY LEACH Primary Care Unavailable STEPHANY PELAYO Primary Care Unavailable STEFANIE JORGENSEN Attending Unavaila STEPHANY Kowalski Primary Care Unavailable AMANDA GREENFIELD Attending Unavailable STEPHANY PELAYO Primary Care Unavailable LAWSONJUWAN Admitting Unavailable [facility] Consulting Unavai lable AHMEDRUTHY Attending Unavailable SHAMEKA CASTILLO Consulting Unavailable KAMILLEMALCOLMHIR Attending Unavailable STEPHANY PELAYO Primary Care Unavailable SHAMEKA CASTILLO Consulting Unavailable HARSHAD RIZZO Admitting Unavailable [facility] Consulting Unavai lable JUDY, SILESHI ADMASSU Admitting Unavailab STEPHANY Graham Primary Care Unavailable [facility] Consulting Unavai labHARSHAD Cotto Attending Unavailable FLOYD CASTILLO Consulting Unavailable TSEPHANY PELAYO Primary Care Unavailable AGAPITO SCHULER Attending Unavailab AGAPITO Stahl Referring Unavailab STEPHANY Graham Attending Unavailable STEPHANY PELAYO Referring Unavailable STEPHANY PELAYO Primary Care Unavailable STEPHANY PELAYO Primary Care Unavailable STEPHANY PELAYO Primary Care Unavailable Mery ROBLES Attending Unavailable Mery ROBLES Referring Unavailable SHAMEKA PALOMO Attending Unavailable STEPHANY PELAYO Primary Care Unavailable SHAMEKA PALOMO Attending Unavailable STEPHANY PELAYO Primary Care Unavailable SHAMEKA PALOMO Attending Unavailable STEPHANY PELAYO Primary Care Unavailable Unavailable Primary Care Provider UnavailStephany Triana PA-C Primary Care Provider [phone] Radha Dias DO Primary Care Provider [phone] Unavailable Primary Care Provider UnavailVANESSA Nielsen Admitting Unavailable DIAB, YARELIS AHMAD Referring Unavailable DIASRADHA Farrell Primary Care Unavailable BLAIRE FREITAS Consulting Unavailable ELDA AGUIRRE Attending Unavailable ESVIN IBRAHIM Consulting Unavailable LIANNE MCCORMICK Consulting Unavailable RADHA DIAS Referring Unavailable RADHA DIAS Primary Care Unavailable Ben Horn DO Attending Provider Ben Horn Attending Unavailable Ben Horn Admitting Unavailable ALAHMADAURA Attending Unavailable ALAHMAD, ALALela Admitting Unavailable ALAHMADAURA Attending Unavailable ALAHMAD, AURA Admitting Unavailable SOTO BOX Attending Unavailable SERGIO RESENDEZ Attending Unavailable KJ DUDLEY Attending Unavailable KJ DUDLEY Admitting Unavailable Andrés Lopez DO Primary Care Provider Andrés Lopez DO Attending Provider [phone] System, Provider Not In Primary Care Provider Un available Mary Law Attending Unavailable KJ DUDLEY Admitting Unavailable DIALKJ Lozada Attending Unavailable STEPHANY PELAYO Attending Unavailable STEPHANY PELAYO Primary Care Unavailable JIM VELEZ Attending STEPHANY Seth Primary Care Unavailable JIM VELEZ Attending STEPHANY Seth Referring Unavailable STEPHANY PELAYO Primary Care Unavailable SYSTEM, PROVIDER NOT IN Primary Care Unavaila ble MIHAI ELIZALDE Attending Unavailab STEPHANY Graham Primary Care Unavailable STEPHANY PELAYO Attending Unavailable STEPHANY PELAYO Primary Care Unavailable MIHAI ELIZALDE Attending Unavailab STEPHANY Graham Attending Unavailable STEPHANY PELAYO Primary Care Unavailable STEPHANY PELAYO Attending Unavailable STEPHANY PELAYO Primary Care Unavailable STEPHANY PELAYO Attending Unavailable JIM VELEZ Attending STEPHANY Seth Primary Care Unavailable STEPHANY PELAYO Primary Care Unavailable SAHARA SANCHEZ Attending Unavailable Allergies Allergy Classification Reported Allergen(s) Allergy Type Date of Onset Reaction(s) Facility (20 sources) codeine; Translations: [codeine] Propensity to adverse reactions to drug 02-16-20 08 Vomiting (disorder), hives, Other (See Comments) [facility] Comment on above: hives hives (20 sources) ketorolac; Translations: [ketorolac] Propensity to adverse reactions to drug 10-09-19 11 Hives, Other (See Comments), Rash, GI Intolerance, Vomiting (disorder) [facility] Work Phone: Comment on above: hives hives (20 sources) Latex; Translations: [LATEX] Propensity to adverse reactions to drug 05-01-20 15 Dermatitis [facility] Work Phone: (20 sources) traMADol; Translations: [tramadol] Propensity to adverse reactions to drug 12-15-19 12 Hives, Rash, Other (See Comments), GI Intolerance, Vomiting (disorder), Seizures, Unknown [facility] Work Phone: Comment on above: seizures seizures (20 sources) PROPOXYPHENE N-ACETAMINOPHEN; Translations: [PROPOXYPHENE N-ACETAMINOPHEN] Propensity to adverse reactions to drug 02-16-20 08 GI Intolerance, Vomiting [facility] Work Phone: (1 source) Acetaminophen / Propoxyphene Drug Allergy [facility] (20 sources) Adhesive agent; Translations: [ADHESIVE] Drug allergy (disorder) 07-17-19 18 Itching [facility] (1 source) Codeine Drug Allergy [facility] (10 sources) Ketorolac; Translations: [Toradol] Drug Allergy 10-09-19 11 hives/seizures [facility] (4 sources) Latex Drug allergy (disorder) 12-21-19 16 [facility] (4 sources) traMADol Drug Allergy 10-01-19 13 [facility] (20 sources) Vancomycin; Translations: [VANCOMYCIN] Drug Allergy 12-15-19 15 Unknown Reaction, Unknown Reaction, hives [facility] Repository Comment on above: shuts down my kidne ys . (3 sources) IV Dye, Iodine Containing Drug allergy (disorder) 12-15-19 15 [facility] (10 sources) Adhesive Tape; Translations: [adhesive tape] Allergy to Substance 11-03-[address] [facility] Repository (20 sources) Ibuprofen; Translations: [ibuprofen] Drug Allergy 08-18-19 18 Other (See Comments), Renal Failure, [facility] Comment on above: shuts down my kidne ys . (20 sources) Propoxyphene; Translations: [PROPOXYPHENE] Drug Allergy 05-25-19 16 GI Intolerance, Nausea And Vomiting [facility] (15 sources) Iodinated Contrast Media; Translations: [Iodinated Contrast Media] Allergy to Substance 02-17-20 17 Other, Unknown [facility] Comment on above: shuts down my kidne ys . (3 sources) Codeine Drug Allergy 10-08-19 11 [facility] Repository (1 source) Contrast media; Translations: [IVP DYE] Propensity to adverse reactions (disorder) 06-18-19 17 [facility] Repository (18 sources) fentaNYL; Translations: [FENTANYL] Drug Allergy 09-23-[address] [facility] Repository (1 source) Vancomycin Drug Allergy 06-18-19 17 [facility] Repository (9 sources) DARVOCET-N 100; Translations: [Darvocet-N 100] Drug allergy (disorder) 10-08-19 11 [facility] Repository (20 sources) fentaNYL; Translations: [fentanyl] Drug Allergy 04-11-20 19 Renal Failure, GI intolerance [facility] (20 sources) NSAIDs; Translations: [NSAIDS (NON-STEROIDAL ANTI-INFLAMMATOR Y DRUG)] Propensity to adverse reactions to drug 03-30-20 17 [facility] (20 sources) Vancomycin; Translations: [vancomycin] Drug Allergy 01-22-20 17 Other (See Comments), [facility] (20 sources) Ct: Iodinated Contrast- Oral And Iv Dye; Translations: [CT: IODINATED CONTRAST- ORAL AND IV DYE] Propensity to adverse reactions to drug 09-07-19 19 Other (See Comments) [facility] (20 sources) acetaminophen / propoxyphene; Translations: [acetaminophen-p ropoxyphene] Drug Allergy 02-16-20 08 Vomiting (disorder), Nausea and Vomiting [facility] (20 sources) Contrast media; Translations: [Contrast Dye] Drug allergy Renal failure syndrome (disorder) [facility] (20 sources) insect stings; Translations: [insect stings] Allergy to substance swelling [facility] (20 sources) opsite; Translations: [opsite] Allergy to substance redness,blisters [facility] (7 sources) Tape 5 Propensity to adverse reactions to substance Eruption of skin (disorder) [facility] Comment on above: blisters (20 sources) Tape 2 Propensity to adverse reactions to substance Eruption of skin (disorder) [facility] Comment on above: blisters blisters (4 sources) FENTENOL Propensity to adverse reactions 09-09-19 23 Unknown, Unknown Reaction [facility] (4 sources) adhesive tape, iv dye, latex Propensity to adverse reactions 09-09-19 23 itchy [facility] (1 source) Tape 4 Propensity to adverse reactions to substance Eruption of skin (disorder) [facility] Comment on above: blisters (2 sources) Ketorolac Drug Allergy 05-25-19 16 Other (See Comments) [facility] Work Phone: (20 sources) LORazepam; Translations: [LORAZEPAM] Drug Allergy 12-09-19 22 Hallucinations, Other (See Comments) [facility] (20 sources) Iodides; Translations: [IODIDES] Propensity to adverse reactions to drug 02-17-20 17 Other (See Comments) [facility] (20 sources) linezolid; Translations: [linezolid] Drug Allergy 08-20-19 23 Nausea and vomiting (disorder), Nausea And Vomiting, GI Intolerance, Renal Failure [facility] (4 sources) dextrose 5 % in water; Translations: [dextrose 5 % in water] Propensity to adverse reactions 08-20-19 23 Vomiting [facility] (1 source) Vancomycin Drug Allergy hives [employer] Other (1 source) linezolid Drug Allergy 06-25-19 23 [facility] Repository (20 sources) Adhesive agent Propensity to adverse reactions to drug 07-17-19 18 Itching [facility] Work Phone: (2 sources) Adhesive agent Drug allergy (disorder) 11-29-19 23 [facility] Repository (2 sources) Codeine Drug Allergy 11-29-19 23 [facility] Repository (2 sources) fentaNYL Drug Allergy 11-29-19 23 [facility] Repository (2 sources) fosphenytoin Drug Allergy 11-29-19 23 [facility] Repository (2 sources) Ketorolac Drug Allergy 11-29-19 23 [facility] Repository (2 sources) Latex Drug allergy (disorder) 11-29-19 23 [facility] Repository (3 sources) Propoxyphene Drug Allergy 11-29-19 23 Unknown [facility] Repository (3 sources) traMADol Drug Allergy 11-29-19 23 Unknown [facility] Repository (2 sources) Vancomycin Drug Allergy 11-29-19 23 [facility] Repository (3 sources) ibuproxam Drug allergy (disorder) 11-29-19 23 [facility] Repository (3 sources) bug bites; Translations: [bug bites] Propensity to adverse reactions (disorder) 11-29-19 23 Unknown [facility] Repository (20 sources) Prochlorperazine ; Translations: [PROCHLORPERAZIN E] Drug Allergy 06-04-19 24 Other (See Comments) [facility] (6 sources) Ketorolac trometamol Propensity to adverse reactions to drug 01-22-20 17 Palpitations [facility] (8 sources) Latex Propensity to adverse reactions to drug 05-01-20 15 Dermatitis, Hives, Rash [facility] (8 sources) Non-steroidal anti-inflammator y agent Propensity to adverse reactions to drug 03-30-20 17 [facility] (3 sources) *Adhesive Tape Propensity to adverse reactions 07-15-19 18 [facility] Work Phone: (3 sources) Codeine And Related Propensity to adverse reactions to drug 02-16-20 08 Aggressive Behavior [facility] (3 sources) Dye Fci Red 3 (Erythrosine) Propensity to adverse reactions to drug 01-22-20 17 [facility] (7 sources) Lorazepam Propensity to adverse reactions to drug 12-09-19 22 Renal Failure, Hallucinations [facility] (5 sources) Morphine And Codeine Drug Intolerance 02-16-20 08 Other, Rash, GI intolerance [facility] (4 sources) Adhesive agent Allergy to substance 07-17-19 18 Itching [facility] Work Phone: (1 source) fosphenytoin Drug Allergy 08-30-19 25 Itching [facility] Work Phone: (3 sources) Acetaminophen; Translations: [ACETAMINOPHEN] Drug Allergy 09-09-19 23 [facility] (1 source) Morphine; Translations: [MORPHINE] Drug Allergy 02-16-20 08 [facility] Repository (5 sources) ADHESIVE TAPE-SILICONES; Translations: [ADHESIVE TAPE-SILICONES] Propensity to adverse reactions to drug (disorder) 07-15-19 18 [facility] Repository (4 sources) Contrast media; Translations: [DYE] Propensity to adverse reactions to drug 08-18-19 18 [employer] (4 sources) Adhesive Tape; Translations: [Tape] Propensity to adverse reactions (disorder) [facility] Repository (4 sources) traMADol; Translations: [Ultram] Drug Allergy [facility] Repository Medications Current Medications Medication Drug Class(es) Dates Sig (Normalized) Sig (Original) acetaminophen 325 mg / oxyCODONE hydrochloride 7.5 mg oral tablet (20 sources) Opioid Agonist Start: 02-23-2025 End: 03-25-2025 take 1 tablet by mouth three times daily as needed for pain oxyCODONE-acetamino phen (PERCOCET) 7.5-325 mg per tablet Indications: Lumbar stenosis with neurogenic claudication Take 1 (one) tablet by mouth 3 (three) times a day as needed for pain . 90 tablet 02/23/2025 03/25/2025 Active Start: 12-03-2024 End: 12-05-2024 1 tablet, oral, Every 8 hour s PRN, severe pain - pain scale 7-10, [...] fill: 30) Start: 12/22/24. 90 tablet 12/22/2024 Active Start: 10-23-2024 End: 10-10-2024 take 1 [...] in halation every six hours Start: 08-08-2022 Ventolin HFA 1 08 (90 Base) MCG/ACT inhaler 08/08/2022 Active Start: 08-08-2022 take 1 puff(s) by mo [...] Cough and Congestion, 18 gm, Refill(s) 0, [facility], 158, cm, [...] breath or wheezing, 180 mL, Refill(s) 0, Replaced By [facility] 1985, 162, cm, 04/06/22 20:38:00 EST, Height/Length Dosing, [...] day(s), # 2 tab(s), Refills(s) 0, Pharmacy: Replaced By [facility] 1986, 162, cm, 04/06/22 20:38:00 EST, Height/Length [...] Feb, Active benzonatate 200 mg oral capsule (6 sources) Non-narcotic Antitussive Start: 07-31-2022 benzonatate (Tessalon) 200 MG capsule Take 200 mg by mouth as needed in the morning and 200 mg as needed at noon and 200 mg as needed in the evening for cough. 07/31/2022 Active Blood Glucose Monitoring Suppl (OneTouch Verio Flex System) w/Device kit (3 sources) Blood Glucose Monitoring Suppl (OneTouch Verio Flex System) w/Device kit Active Blood Pressure Monitor KIT (1 source) [...] 2024 12:00am brexpiprazole 1 mg oral tablet (20 sources) Atypical Antipsychotic Start: 06-26-2024 Rexulti 1 mg Tab TAKE 1 TABLET DAILY FOR 7 DAYS, THEN 2 DAILY FOR 7 DAYS AND AFTER IF TOLERATED FOR PSYCHOSIS 06/26/2024 Active brimonidine tartrate 2 mg/ml / brinzolamide 10 mg/ml ophthalmic suspension (2 sources) Carbonic Anhydrase Inhibitor, alpha-Adrenergic Agonist Start: 11-09-2023 Brinzolamide-Brimoni dine (Simbrinza) 1-0.2 % Suspension Apply 1 drop to eye. Pt given sample by Jessica Puentes MD 11/09/23 11/09/2023 Active brompheniramine maleate 0.4 mg/ml / dextromethorphan hydrobromide 2 mg/ml / pseudoephedrine hydrochloride 6 mg/ml oral solution (15 sources) alpha-Adrenergic Agonist, Uncompetitive C-gtjlwb-V-asparta te Receptor Antagonist, Sigma-1 Agonist Start: 10-09-2021 [...] Daily, # 30 tab(s), Refills(s) 0, Pharmacy: Replaced By [facility] 1986, 162, cm, 04/06/22 20:38:00 EST, Height/Length [...] sources) Lincosamide Antibacterial Start: 04-04-2024 End: 04-08-2024 Continuous Glucose Sensor (Dexcom G6 Sensor) misc (3 sources) Start: 05-04-2024 Continuous Glu cose Sensor (Dexcom G6 Sensor) misc USE DIRECTED FOR CONTINUOUS GLUCOSE MONITORING, CHANGE EVERY 10 DAYS 05/04/2024 Active Continuous Glucose Sensor (Dexcom G7 Sensor) misc (2 sources) Start: 02-02-2025 End: 05-03-2025 Continuous Glucose Sensor (Dexcom G7 Sensor) misc Indications: Type 2 diabetes mellitus with hyperglycemia, with long-term current use of insulin (HCC) 1 Bar Every 10 (ten) days 9 each 02/02/2025 05/03/2025 Active 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 1 each 3 12/03/2023 Start: 12-03-2023 Dexcom G6 Kelley smitter Simran Indications: Type 2 diabetes mellitus with diabetic polyneuropathy, with long-term current use of insulin (HCC) Use as directed for continuous glucose monitoring change every 3 months . 1 each 3 12/03/2023 Suspended Start: 12-03-2023 Dexcom G6 Allie Khalil Indications: Type 2 diabetes mellitus with diabetic polyneuropathy, with long-term current use of insulin (HCC) Use as directed for continuous glucose monitoring change every 3 months . 1 each 3 12/03/2023 Active Diabetic supplies (17 sources) Start: [...] QID, # 20 cap(s), Refills(s) 0, [facility], 157, cm, 05/04/22 15:39:00 EST, Height/Length Dosing, 130, kg, 05/04/22 15:39:00 EST, Weight Dosing Start Date: 05/04/22 Status: Ordered Start: 01-24-2022 End: 01-31-2022 take 1 tablet by mouth three times daily dicyclomine 20 mg Tab 20 mg = 1 tab(s), Oral, TID, X 7 day(s), # 21 tab(s), Refills(s) 0, Pharmacy: [facility], 157, cm, 01/24/22 10:48:00 EDT, [...] day(s), # 20 tab(s), Refills(s) 0, [facility], 157, cm, 08/19/22 17:10:00 EDT, Height/Length [...] Oral, Every 12 hours, First dose on Thu06/04/20 at 0500 Do not crush or open. [...] at pharmacy - uses [facility] [place] . 0 06/01/2020 Active fluconazole 150 mg oral tablet (6 sources) Azole Antifungal Start: 09-26-2022 fluconazole (Diflucan) 150 MG tablet 09/26/2022 Active FreeStyle Test - (2 sources) Start: 07-14-2018 Start: 07-14-2018 FreeStyle Test - as directed In Vitro QID for 90 days Jun, Active 1 ml galcanezumab-gnlm 120 m g/ml auto-injector (9 sources) Start: 07-18-2022 Emgality 120 M G/ML auto-injector 07/18/2022 Active Start: 07-18-2022 Emgality 120 M G/ML auto-injector USE DIRECTED ONCE EVERY MONTH FOR 30 DAYS 07/18/2022 Active Start: 06-01-2020 End: 02-17-2023 Emgality Pen 120 mg/mL Pen e very 30 (thirty) days For headaches, had 04/2020; states need to pick it up tomorrow at pharmacy - uses [facility] [place] . 0 06/01/2020 02/17/2023 Discontinued GLUCOSE MONITOR [...] day as needed . 06/26/2024 Active Start: 01-12-2024 End: 01-18-2024 Start: 10-15-2023 End: [...] 02-20-2023 hydrOXYzine (ATARAX) tablet 25 mg Start: 07-11-2022 take 1 capsule by mo uth at bedtime as needed hydrOXYzine pamoate 25 mg Cap 25 mg = 1 cap(s), Oral, Bedtime, PRN Insomnia, # 40 cap(s), Refills(s) 0 Start Date: 09/12/22 Status: Ordered Start: 07-11-2022 End: 08-02-2024 take 1 capsule by mouth twice daily as needed for anxiety hydrOXYzine (VISTARIL) 25 MG capsule Take 1 (one) capsule (25 mg total) by mouth 2 (two) times a day as needed for itching or anxiety . 180 capsule 03/25/2024 08/02/2024 Discontinued (Therapy completed) Start: 07-11-2022 take 1 capsule by mo [...] . 1 each 2 03/10/2024 03/10/2025 Active Insulin Disposable Pump (Omnipod 5 G7 Intro, Gen 5,) kit (3 sources) Insulin Disposab le Pump (Omnipod 5 G7 Intro, Gen 5,) kit Active insulin glargine 100 unt/ml injectable solution (20 sources) Insulin Analogue Start: inject 0.3 mL by subcutaneous injection in [...] 2 ti mes daily, First dose on Thu12/03/24 at 1700, Look-alike/sound-alike medication - verify indication [...] Subcutaneous, Nightly, First dose on 03/29/23 at 2100 Do not mix with other [...] Start: 12-08-2023 End: 06-05-2024 alcohol swabs PadM Indications: Type 2 diabetes mellitus with diabetic polyneuropathy, with long-term current use of insulin (HCC) Apply 1 (one) Swab. topically 5 (five) times a day Clean area before administering insulin. . 150 each 5 12/08/2023 Active lamoTRIgine 25 mg oral tablet (20 sources) Mood Stabilizer, Anti-epilepti c Agent Start: 02-08-2024 End: 04-29-2024 take 1 [...] Enzyme Inhibitor Start: 03-25-2024 End: 03-26-2024 Start: 09-03-2023 End: 02-11-2024 take 1 tablet [...] Date: 09/15/22 Status: Completed Start: 08-20-2022 End: 08-02-2024 take 1 tablet by mouth once daily lisinopriL (PRINIVIL,ZESTRIL) 40 MG tablet Indications: Primary hypertension Take 1 (one) tablet (40 mg total) by mouth daily . 90 tablet 1 08/02/2024 Active Start: 07-02-2012 End: 08-29-2024 take 1 tablet [...] day(s), # 90 tab(s), Refills(s) 0, Pharmacy: [facility], 158, cm, 09/30/21 14:00:00 EDT, [...] dizziness, # 30 tab(s), Refills(s) 0, Pharmacy: [facility], 158, cm, 09/30/21 14:00:00 EDT, Height/Length Dosing, 112.8, kg, 09/30/21 14:00:00 EDT, Weight Dosing Start Date: 09/30/21 Status: Ordered Start: 11-14-2020 take 1 tablet by eduardo th three times daily as needed for dizziness meclizine 25 mg Tab 25 mg = 1 tab(s), Oral, TID, PRN as needed for dizziness, # 30 tab(s), Refills(s) 0, Pharmacy: [facility], 157, cm, 11/14/20 15:53:00 EDT, Height/Length Dosing, 117.1, kg, 11/14/20 15:53:00 EDT, Weight Dosing Start Date: 11/14/20 Status: Ordered meloxicam 15 mg oral tablet (20 sources) Nonsteroidal Anti-inflammatory Drug Start: 09-30-2021 End: 12-29-2021 take 1 tablet by mouth once daily meloxicam 15 mg Tab 15 mg = 1 tab(s), Oral, Daily, X 90 day(s), # 90 tab(s), Refills(s) 0, Pharmacy: [facility], 158, cm, 09/30/21 14:00:00 EDT, [...] day(s), # 9 tab(s), Refills(s) 0, Pharmacy: [facility], 157, cm, 06/02/22 15:53:00 EST, [...] . 90 tablet 1 08/02/2024 Active Start: 02-20-2023 End: 10-13-2023 take 1 tablet by mouth once daily metoprolol succinate (TOPROL-XL) 25 MG 24 hr tablet Indications: Hypertensive urgency Take 1 (one) tablet (25 mg total) by mouth daily . 90 tablet 1 05/06/2023 10/13/2023 Discontinued (Dose adjustment) Start: 02-18-2023 End: 02-19-2023 take 50 mg by mouth once daily 50 mg, Oral, Daily, Fir st dose on Thu02/18/23 at 0900 DO NOT CRUSH OR CHEW. [...] (Lopressor) 25 MG tablet every 12 (twelve) hours Active End: 02-20-2023 take 1 tablet by [...] # 10 cap(s), Refills(s) 0, Pharmacy: [facility], 158, cm, 10/30/21 13:11:00 EDT, Height/Length [...] 2018 2:57pm ofloxacin 3 mg/ml ophthalmic solution (6 sources) Quinolone Antimicrobial Start: 10-15-2022 ofloxa hesham (Ocuflox) 0.3 % ophthalmic solution 10/15/2022 Active Start: 10-15-2022 take 1 drop(s) into the [...] day(s), # 90 cap(s), Refills(s) 0, Pharmacy: [facility], 158, cm, 09/30/21 14:00:00 EDT, [...] day(s), # 90 cap(s), Refills(s) 0, Pharmacy: [facility], 158, cm, 09/30/21 14:00:00 EDT, [...] paliperidone 6 mg extended release oral tablet (20 sources) Atypical Antipsychotic Start: 07-27-2024 take 1 [...] take 1 tablet by eduardo once daily pantoprazole 40 mg Oral EC [...] mouth every morning before breakfast. Active Pen Norris 10/07 (2 sources) Start: 03-06-2018 Pen Norris 16 as directed twice daily Feb, Active petrolatum 0.57 mg/mg / zinc oxide 0.17 mg/mg paste (20 sources) Start: 08-02-2024 zinc oxide-whi te petrolatum 17-57 % Pste Apply 1 Application topically daily . 113 g 2 08/02/2024 Active polyethylene glycol 3350 27881 mg powder for oral solution (20 sources) [...] 8:33am prednisoLONE acetate 10 mg/ml ophthalmic suspension (6 sources) Corticosteroid Start: 10-15-2022 prednisoLONE a cetate (Pred-Forte) 1 % ophthalmic suspension 10/15/2022 Active Start: 10-15-2022 take 1 drop(s) into the [...] day(s), # 15 tab(s), Refills(s) 0, Pharmacy: [facility], 158, cm, 10/09/21 15:33:00 EDT, Height/Length Dosing, 112.8, kg, 10/09/21 15:33:00 EDT, Weight Dosing Start Date: 10/09/21 Stop Date: 10/14/21 Status: Ordered pregabalin 75 mg oral capsule (20 sources) Start: 12-03-2024 End: 12-05-2024 take 100 mg by mouth once daily 100 mg, oral, Nightly, First dose on 12/03/24 at 2200, Look-alike/sound-alike medication. Verify indication for use Start: 07-14-2024 End: 01-21-2025 take 1 capsule by mouth twice daily pregabalin (LYRICA) 75 MG capsule Indications: DDD (degenerative disc disease), lumbar , Lumbar radiculopathy Take 1 (one) capsule (75 mg total) by mouth 2 (two) times a day (Days supply per fill: 30) Start: 12/22/24. 60 capsule 12/22/2024 Active Start: 01-13-2024 End: 07-12-2024 take 1 [...] Start: 08-04-2019 take 1 capsule by mo ut at bedtime Start: 01-29-2019 take 100 mg [...] 29, 2024 1:56pm take 1 capsule by [facility] at bedtime pregabalin 100 MG Cap Take [...] (one) tablet by mouth daily . Active promethazine hydrochloride 2 5 mg oral tablet (20 sources) Phenothiazine Start: 08-20-2022 End: 10-13-2023 take 1 tablet by mouth every six hours as needed for nausea Start: 08-20-2022 Promethazine A ctive MG TABLET August 20, 2022 12:00am Start: 01-24-2022 take 1 tablet by eduardo th three times daily promethazine 25 mg Tab 25 mg = 1 tab(s), Oral, TID, # 15 tab(s), Refills(s) 0, Pharmacy: [facility], 157, cm, 01/24/22 10:48:00 EDT, [...] energan) 25 MG tablet every 12 (twelve) hours Active saccharomyces boulardii 250 mg oral capsule (12 sources) Start: 08-22-2022 take 1 capsule by mouth twice daily at mealtime 0.25 mg, 0.5 mg dose 1.5 ml semaglutide 1.34 mg/ml pen injector (2 sources) Start: 02-02-2025 End: 07-20-2025 inject 0.5 mg by subcutaneous injection every week semaglutide (Ozempic, 0.25 or 0.5 MG/DOSE,) 2 MG/1.5ML solution pen-injector Indications: Type 2 diabetes mellitus with hyperglycemia, with long-term current use of insulin (HCC) Inject 0.5 mg under the skin 1 (one) time per week 4.5 mL 1 02/02/2025 07/20/2025 Active [employer] - (2 sources) Start: 05-19-2018 [employer] - as directed for insulin pen needles/lancets/ syringes as directed QID please fill with 4 qt or 5 qt container Apr, Active terconazole 8 mg/ml vaginal cream (6 sources) Azole Antifungal Start: 09-24-2022 terconazole (Terazol 3) 0.8 % vaginal cream 09/24/2022 Active Start: 09-24-2022 terconazole (T erazol 3) 0.8 % vaginal cream INSERT ONE [...] oral, 3 times daily, First dose on Thu12/03/24 at 0800, Look-alike/sound -alike medication - verify indication for use. Start: [...] 10-06-2022 End: 10-07-2022 tizanidine (ZANAFLEX) tablet Start: 09-23-2022 tiZANidine (Za naflex) 6 MG capsule 09/23/2022 Active Start: 09-12-2022 End: 02-20-2023 take 2 capsules by mouth at bedtime Start: 09-12-2022 take 12 mg by mouth [...] bedtime), # 30 tab(s), Refills(s) 1, Pharmacy: [facility], 157, cm, 12/12/21 16:54:00 EDT, Height/Length Dosing, 114.8, kg, 12/12/21 16:54:00 EDT, Weight Dosing Start Date: 12/29/21 Status: Ordered Start: 12-12-2021 take 3 tablets by mo ut once daily at bedtime Zanaflex 4 mg Tab 12 mg = 3 tab(s), Oral, Once a day (at bedtime), # 30 tab(s), Refills(s) 1, Pharmacy: [facility], 157, cm, 12/12/21 16:54:00 EDT, Height/Length Dosing, 114.8, kg, 12/12/21 16:54:00 EDT, Weight Dosing Start Date: 12/12/21 Status: Ordered Start: 10-28-2021 take 3 tablets by ms ut once daily at bedtime Zanaflex 4 mg Tab 12 mg = 3 tab(s), Oral, Once a day (at bedtime), # 30 tab(s), Refills(s) 0, Pharmacy: [facility], 158, cm, 10/09/21 15:33:00 EDT, Height/Length Dosing, 112.8, kg, 10/09/21 15:33:00 EDT, Weight Dosing Start Date: 10/28/21 Status: Ordered Start: 09-30-2021 take 3 tablets by [facility] once daily at bedtime Zanaflex 4 mg Tab 12 mg = 3 tab(s), Oral, Once a day (at bedtime), # 30 tab(s), Refills(s) 0, Pharmacy: [facility], 158, cm, 09/30/21 14:00:00 EDT, Height/Length Dosing, 112.8, kg, 09/30/21 14:00:00 EDT, Weight Dosing Start Date: 09/30/21 Status: Ordered Start: 07-31-2021 take 3 tablets by mo akh once daily at bedtime Zanaflex 4 mg Tab 12 mg = 3 tab(s), Oral, Once a day (at bedtime), # 30 tab(s), Refills(s) 0, Pharmacy: [facility], 157.5, cm, 07/29/21 14:55:00 EST, [...] 02/17/2023 Discontinued take 2 tablets by mo uth three times daily as needed for muscle [...] mg / clavulanate 125 mg oral tablet (12 sources) Penicillin-class Antibacterial Start: 07-05-2024 End: 07-15-2024 [...] 2 times daily (RT), First dose on Thu06/03/20 at 2000 busPIRone hydrochloride 10 mg oral [...] day(s), # 14 cap(s), Refills(s) 0, Pharmacy: [facility], 158, cm, 11/04/21 11:29:00 EDT, Height/Length Dosing, 113, kg, 11/04/21 11:29:00 EDT, Weight Dosing Start Date: 11/06/21 Stop Date: 11/13/21 Status: Ordered cefepime 2000 mg injection (1 source) Cephalosporin Antibacterial Start: 01-12-2024 End: 08-20-2024 2,000 mg, Intravenous, at 100 mL/hr, Once, On Thu01/12/24 at 1700, For 1 dose, Indication: Other: (specify), Indication: diabetic foot infection cephalexin 500 mg oral capsule (11 sources) Cephalosporin Antibacterial Start: 04-28-2023 End: 05-08-2023 [...] chlorhexidine gluconate 40 mg/ml medicated liquid soap (8 sources) Start: 09-07-2018 End: 03-24-2019 Chlorhexidine Gluconate [...] 20 mg/ml oral solution (4 sources) Uncompetitive Q-rescxz-F-aspartat e Receptor Antagonist, Sigma-1 Agonist Start: 05-15-2023 [...] by mouth every week ergocalciferol (Vitamin D2) 1.25 MG (54664 UT) capsule Take 1 capsule by mouth 1 (one) time per week 08/22/2022 Active Start: 08-22-2022 End: 09-12-2022 take 1 capsule by mouth every week Start: 04-08-2022 End: 05-20-2022 ergocalciferol 50,000 intl u nits Cap 50,000 International_Unit = 1 cap(s), Oral, q7day, X 6 week(s), # 6 cap(s), Refills(s) 0, Pharmacy: [facility], 162, cm, 04/06/22 20:38:00 EST, [...] (Suppress CancelRx Message to Pharmacy)) flu vacc [id number] 6mos up(PF) (FLUZONE QUAD/FLULAVAL QUAD/FLUARIX QUAD) syringe 0.5 mL (1 source) Start: 06-03-2020 End: 06-05-2020 inject 0.5 mL by intramuscular injection every twenty-four hours as needed flu vacc [id number] 6mos up(PF) (FLUZONE QUAD/FLULAVAL QUAD/FLUARIX QUAD) syringe 0.5 mL flu vacc [id number] 6mos up(PF) (FLUZONE QUAD/FLULAVAL QUAD/FLUARIX QUAD) syringe Syrg 0.5 mL (1 source) Start: 03-29-2023 End: 03-30-2023 inject 0.5 mL by intramuscular injection every twenty-four hours as needed flu vacc [id number] 6mos up(PF) (FLUZONE QUAD/FLULAVAL QUAD/FLUARIX QUAD) syringe [...] on Thu02/18/23 at 0900 FreeStyle Zeinab 2 [place] Misc (20 sources) Start: 04-01-2023 End: 12-02-2023 FreeStyle Zeinab 2 [place] Misc Indications: Type 2 diabetes mellitus with diabetic polyneuropathy, with long-term current use of insulin (HCC) Inject 1 each under the skin 2 (two) times a day . 04/01/2023 12/02/2023 Discontinued (Alternate therapy) Start: 04-01-2023 FreeStyle Libr e 2 [place] Mis Indications: Type 2 diabetes mellitus with diabetic polyneuropathy, with long-term current use of insulin (HCC) Inject 1 each under the skin 2 (two) times a day . 04/01/2023 Active Start: 04-01-2023 FreeStyle Libr e 2 [place] Mis Indications: Type 2 diabetes mellitus with diabetic polyneuropathy, with long-term current use of insulin (HCC) Inject 1 each under the skin 2 (two) times a day . 0 04/01/2023 Suspended Start: 04-01-2023 FreeStyle Libr e 2 [place] Mis Indications: Type 2 diabetes mellitus with [...] to dextrose-containing formulation, DO NOT change to azb-leqbewin-qurdtpavyo IV fluid if blood glucose exceeds 250 [...] Discontinued Start: 04-08-2022 take 2 tablets by [facility] twice daily Mucinex 600 mg Tab-ER 1,200 mg = 2 tab(s), Oral, BID, # 30 tab(s), Refills(s) 0, Pharmacy: [facility], 162, cm, 04/06/22 20:38:00 EST, [...] ml insulin detemir 100 unt/ml pen injector (18 sources) Insulin Analog Start: 01-29-2019 End: 08-05-2019 [...] injection once 10 Units, Subcutaneous, Once, On Thu04/28/24 at 0630, For 1 dose Start: 04-27-2024 [...] 04/07/22 Status: Completed Start: 09-07-2018 End: 12-05-2024 Insulin Lispro 100 UNIT/ML solution 07/18/2022 Active Start: 09-07-2018 Start: 09-07-2018 Insulin Lispro (Admelog [...] daily, First dose on 12/03/24 at 0900, Look-alike/sound-al carmen medication - verify [...] 1 tablet by mouth every 12 (twelve) hours 08/01/2022 Active Start: 02-27-2022 take 1 tablet by eduardo th twice daily Keppra 250 mg Tab 250 mg = 1 tab(s), Oral, BID, # 60 tab(s), Refills(s) 0, Pharmacy: Replaced By [facility], 157, cm, 02/27/22 12:02:00 EDT, Height/Length [...] mcg, oral, Daily, First d ose on Thu12/03/24 at 0900, Look-alike/sound-alike medication. Verify indication for [...] day(s), # 90 tab(s), Refills(s) 0, Pharmacy: [facility], 158, cm, 09/30/21 14:00:00 EDT, [...] mg, Oral, Nightly PRN, Sleep, Starting on 02/18/23 at 0028 If still awake in 1 [...] 2014 1:01pm micafungin sodium 100 mg injection (8 sources) Echinocandin Antifungal Start: 01-29-2019 End: 03-24-2019 Micafungin 100 mg recon soln Discontinued 100 MG IV Q24H 03 03January 29, 2019 12:00am March 24, 2019 8:33am administer over 60 mins midodrine hydrochloride 5 mg oral tablet (1 source) alpha-Adrenergic Agonist Start: 02-19-2023 End: 02-20-2023 midodrine (PROAMATINE) tablet 10 mg 1 ml morphine sulfate 4 mg/ml cartridge (8 sources) Opioid Agonist Start: 04-26-2024 End: 04-26-2024 4 mg, Intravenous, Once, On 12/3/24 at 2140, For 1 dose Start: 03-24-2024 End: 03-24-2024 Start: 03-29-2023 End: 03-29-2023 morphine injection 2 mg Start: 02-17-2023 End: 02-17-2023 morphine syringe 4 mg Start: 06-03-2020 End: 06-03-2020 morphine syringe 4 mg Start: 06-26-2017 End: 06-26-2017 morphine concentrated 10 mg/ 0.5 ml oral syringe 10 mg 10 mg, Oral, Once, 06/26/17 at 1920, For 1 dose [...] 29, 2024 1:56pm naloxone (NARCAN) 4 mg/actuation [place] (13 sources) Start: 04-14-2024 End: 08-02-2024 naloxone (NARCAN) 4 mg/actua tion [place] Administer 1 spray into one nostril for known or suspected opioid overdose. If patient worsens or does not respond, may repeat in 2-3 minutes. . 2 each 04/14/2024 08/02/2024 Discontinued (Therapy completed) Start: 04-14-2024 naloxone (NARC AN) 4 mg/actuation [place] Administer 1 spray into one nostril for known or suspected opioid overdose. If patient worsens or does not respond, may repeat in 2-3 minutes. . 2 each 04/14/2024 Start: 04-14-2024 naloxone (NARC AN) 4 mg/actuation [place] Administer 1 spray into one nostril for known or suspected opioid overdose. If patient worsens or does not respond, may repeat in 2-3 minutes. . 2 each 04/14/2024 Suspended Start: 04-14-2024 naloxone (NARC AN) 4 mg/actuation [place] Administer 1 spray into one nostril for [...] 0.1 mg naratriptan 2.5 mg oral tablet (8 sources) Serotonin-1b and Serotonin-1d Receptor Agonist Start: [...] 5 min PRN, chest pain, Starting on 02/18/23 at 0028, For 3 doses For chest [...] 03-22-2025 Start: 10-06-2022 nystatin (Myco statin) ointment 10/06/2022 Active Start: 10-06-2022 nystatin (Myco statin) ointment APPLY OINTMENT TOPICALLY TWICE DAILY FOR 10 DAYS 10/06/2022 Active Start: 09-26-2022 nystatin (Myco statin) cream 09/26/2022 Active Start: 09-26-2022 nystatin (Myco statin) cream APPLY CREAM TOPICALLY TO AFFECTED AREA TWICE DAILY FOR 5 DAYS 09/26/2022 Active nystatin (MYCOST ATIN) 304252 UNIT/GM cream Apply topically 2 times daily Apply topically 2 times daily. 0 Active nystatin (MYCOST ATIN) 378732 UNIT/GM powder Apply topically 4 times daily [...] Nausea/Vomiting, # 6 tab(s), Refills(s) 0, Pharmacy: [place] [id number] Start Date: 11/23/18 Status: Ordered Start: 07-23-2018 [...] chloride 20 meq extended release oral tablet (17 sources) Start: 03-31-2024 End: 03-31-2024 Start: 10-03-2021 End: 10-17-2021 take 1 tablet by mouth twice daily at mealtime potassium chloride 20 mEq ER Tab 20 mEq = 1 tab(s), Oral, BID, with a full glass of water with food, X 14 day(s), # 28 tab(s), Refills(s) 0, Pharmacy: [facility], 158, cm, 09/30/21 14:00:00 EDT, [...] 05, 2019 3:09pm take 1 capsule by [facility] every twenty-four hours Potassium Chloride 10 [...] to dextrose-containing formulation, DO NOT change to ske-sahyetll-vgamhfwxzp IV fluid if blood glucose exceeds 250 mg/dL. QUEtiapine 200 mg oral tablet (20 sources) [...] Oral, Nightly, First dose on 03/29/23 at 2100 May cause QT interval prolongation. [...] day(s), # 8 tab(s), Refills(s) 0, Pharmacy: Replaced By [facility] 1986, 157, cm, 02/21/22 14:56:00 EDT, Height/Length [...] 0 Active take 1 tablet by eduardo every twenty-four hours QUEtiapine Fumarate 300 MG [...] source) Anticholinergic Start: 03-25-2024 End: 03-28-2024 sennosides, mcc 8.6 mg oral tablet (4 sources) Start: [...] 1 345, For 1 dose, YVETTE CANCHOLA: roscoeinet override Start: 04-26-2024 End: 04-27-2024 take 100 [...] 02-19-2023 End: 02-19-2023 sodium chloride 0.9% (NS) yadiel arash 500 mL Start: 02-18-2023 End: 09-29-2023 sodium chloride (PF) (NS) fl ush 5 [...] mg / trimethoprim 160 mg oral tablet (12 sources) Dihydrofolate Reductase Inhibitor Antibacterial, Sulfonamide Antimicrobial Start: 07-05-2024 End: 07-15-2024 take 1 tablet by mouth twice daily sulfamethoxazole-tr imethoprim (BACTRIM DS,SEPTRA DS) 800-160 mg per tablet Take 1 (one) tablet by mouth 2 (two) times a day . 07/05/2024 07/15/2024 Start: 10-24-2022 End: 07-15-2024 sulfamethoxazole-trimethopri m (Bactrim DS) 800-160 MG per tablet 10/24/2022 Active Start: 09-15-2022 End: 09-20-2022 take 1 tablet by mouth every twelve hours Bactrim D.S. 800 mg-160 mg Tab 1 tab(s), Oral, q12hr, 11 tab(s), Refill(s) 0, START TONIGHT; drink plenty of fluids, [facility], [facility], cm, 09/12/22 13:52:00 EDT, Height/Length Dosing, 113, kg, 09/12/22 13:52:00 EDT, Weight Dosing Start Date: 09/15/22 Stop Date: 09/20/22 Status: Ordered Start: 05-15-2022 End: 05-22-2022 take 1 tablet by mouth twice daily Bactrim D.S. 800 mg-160 mg Tab 1 tab(s), Oral, BID for 7 day(s), 14 tab(s), Refill(s) 0, [facility], 157, cm, 05/15/22 16:23:00 EST, Height/Length Dosing, [...] mg Start: 11-05-2018 take 1 tablet by [facility] twice daily divalproex sodium 500 mg ER Tab 500 mg = 1 tab(s), Oral, BID, Refills(s) 0, Seizure Start Date: 11/05/18 Status: Ordered Start: 09-09-2018 End: 12-03-2024 take 1 tablet by mouth twice daily Divalproex 500 mg Tablet,Delayed Release (Dr/Ec) Discontinued 500 MG PO Twice daily 60 30 September 09, 2018 12:00am August 20, 2022 3:10am Start: 09-07-2018 End: 09-09-2018 take 1 tablet by mouth twice daily Divalproex 250 mg Tablet,Delayed Release (Dr/Ec) Discontinued 250 MG PO Twice daily September 07, 2018 12:00am September 09, 2018 1:12pm 250 ml vancomycin 5 mg/ml injection (9 sources) Glycopeptide Antibacterial Start: 03-25-2024 End: 03-26-2024 [...] daily cyanocobalamin (B-12) 1000 MCG tablet Indications: [facility] Take 1 (one) tablet (1,000 mcg total) by mouth daily Reasons: [facility]. 90 tablet 1 02/11/2024 03/22/2024 Discontinued (Therapy completed) take 1 tablet by mouth once mike y cyanocobalamin 500 MCG tablet Take 1 tablet by mouth daily. Active zinc oxide 50 mg/ml topical cream (1 source) Start: 08-02-2024 End: 08-02-2024 zinc oxide 5 % Crea Apply 1 Application topically daily . 177.4 mL 08/02/2024 08/02/2024 Discontinued (Therapy completed) zonisamide 100 mg oral capsule (9 sources) Anti-epilepti c Agent Start: 07-23-2018 End: [...] peripheral IV Signed Summary: SEKOU, Once, On Danelle 03/24/24 at 2024, For 1 occurrence [Order 1 End] [Order 2 Start] Name: Saline lock IV Signed Summary: SEKOU, Once, On Danelle 03/24/24 at 2024, For 1 occurrence [Order 2 End] [Order 3 Start] Name: sodium chloride (PF) (NS) flush 5 mL Signed Summary: 5 mL, Intravenous, As needed, line care, Starting on Danelle 03/24/24 at 2019 [Order 3 End] [Order 4 [...] to severe stress, unspecified] Chronic Administrative/social admission (4 sources) Encounter for issue of repeat prescription; Translations: [Drug seeking behavior ] Onset: 3 02-02-2025 Episodic Anxiety disorders (20 sources) Anxiety; Translations: [...] Coronary atherosclerosis; Translations: [Atherosclerotic heart disease of [place] coronary artery without angina pectoris] Onset: 2 Chronic Diabetes mellitus with complications (20 sources) Type II diabetes mellitus uncontrolled; Translations: [Neuropathy due to diabetes mellitus] Onset: 5 Resolved: 5 06-04-2020 Chronic Diabetes mellitus without complication (20 sources) Type 2 diabetes mellitus; Translations: [Diabetes mellitus] Onset: 5 12-03-2014 Chronic Disorders of lipid metabolism (20 sources) Dyslipidemia; Translations: [Hyperlipidemia] Onset: 7 01-19-2019 Chronic E Codes: Fall (4 sources) Unspecified fall, initial encounter; Translations: [Fall] Onset: 2 02-23-2025 Episodic Epilepsy; convulsions (9 sources) Seizure disorder; Translations: [...] Translations: [Osteomyelitis, unspecified] Onset: 4 03-25-2024 Chronic Late effects of cerebrovascular disease (1 source) Neurogenic bladder as late effect of cerebrovascular accident; Translations: [Other sequelae of cerebral infarction] 02-20-2025 Chronic Menopausal disorders (1 source) Hormone replacement therapy; Translations: [HORMONE REPLACEMENT THERAPY] Onset: 3 Episodic Miscellaneous mental health disorders (5 sources) Confusional state; 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] Onset: 9 Chronic Mood disorders (20 sources) Bipolar I disorder; Translations: [Bipolar disorder] Onset: 9 06-04-2020 Chronic Neoplasms of unspecified nature or uncertain behavior [...] [Osteoarthritis] Onset: 2 07-29-2021 Chronic Other aftercare (4 sources) Long-term current use of insulin; Translations: [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) use of insulin] 02-02-2025 Episodic Other aftercare (1 source) nursing home (current) use of aspirin; Translations: [LONGTERM CURRENT USE OF ASPIRIN] Onset: 3 Episodic Other aftercare (1 source) 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) use of oral hypoglycemic drugs; Translations: [LONGTERM USE ORAL HYPOGLYCEMIC DX] Onset: 3 Episodic [...] toe(s)] 08-20-2022 Episodic Other connective tissue disease (1 source) Pain of left hand; Translations: [Pain in left hand] 02-23-2025 Episodic Other connective tissue disease (2 sources) Pain in left hand; Translations: [Pain in left hand] Onset: 5 Episodic Other ear and sense organ disorders [...] Onset: 4 Chronic Other nervous system disorders (7 sources) Abnormal gait; Translations: [Unspecified abnormalities of [...] nutritional; endocrine; and metabolic disorders (5 sources) Severe obesity; Translations: [Morbid (severe) obesity due to excess calories] Onset: 7 08-25-2022 Chronic Other skin disorders (4 sources) Ingrowing nail; Translations: [Ingrowing nail] 08-20-2022 Episodic Other skin disorders (3 sources) Ingrowing nail; Translations: [Ingrowing nail] 08-22-2022 Episodic Other upper respiratory infections (2 sources) Acute upper respiratory infection, unspecified; Translations: [Upper respiratory infection] Onset: 3 12-10-2023 Episodic Otitis media and related conditions (3 sources) Acute suppurative otitis media without spontaneous rupture of ear drum; Translations: [Acute suppurative otitis media without spontaneous rupture of ear drum, left ear] 05-08-2023 Episodic Paralysis (1 source) Left hemiparesis Chronic Peripheral and visceral atherosclerosis (9 sources) Peripheral vascular disease; Translations: [Peripheral vascular [...] UNSPECIFIED] Onset: 3 Chronic Residual codes; unclassified (9 sources) Noncompliance with medication regimen; Translations: [Patient's [...] conditions] Onset: 2 Episodic Residual codes; unclassified (6 sources) Staring; Translations: [Transient alteration of awareness] [...] sources) Schizophrenia; Translations: [Schizophrenia, unspecified] Onset: 2 07-11-2022 Chronic Screening and history of mental health and substance abuse codes (1 source) Personal history of nicotine dependence; Translations: [PERSONAL HISTORY OF NICOTINE DEPEND] Onset: 3 Episodic Spondylosis; intervertebral disc disorders; other back problems (20 sources) Degeneration of lumbar intervertebral disc; Translations: [Other intervertebral disc degeneration, lumbar region] Onset: 4 12-09-2023 Chronic Sprains and strains (4 sources) Injury of [...] UNCOMP Onset: 9 Unclassified (1 source) OTH LONGTERM CURRENT DRUG THERAPY Onset: 9 Unclassified (1 source) TYPE 2 DM WITHOUT COMPLICATIONS Onset: 9 Unclassified (1 source) 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 CURRENT USE OF INSULIN Onset: 9 Unclassified (1 source) 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 USE ORAL HYPOGLYCEMIC DX Onset: 9 Unclassified (1 source) LONGTERM CURRENT USE OF ASPIRIN Onset: 9 Unclassified [...] of both knees 08-05-2024 Unclassified (1 source) Patient's noncompliance with other medical treatment and regimen due to unspecified reason; Translations: [Patient's noncompliance with other medical treatment and regimen due to unspecified reason] Onset: 5 Unclassified (1 source) Low back pain, unspecified; Translations: [Low back pain, unspecified] Onset: 5 Unclassified (1 source) Sudden vision loss Onset: 5 Unclassified (1 source) Other intervertebral disc degeneration, [...] muscle or fascia, initial encounter] Onset: 4 Urinary tract infections (20 sources) Acute cystitis [...] infection] Onset: 11-30-2014 Resolved: 05-06-2023 08-05-2019 Episodic Cardiac dysrhythmias (20 sources) Palpitations; Translations: [...] Translations: [Insulin pump present] Onset: 03-31-2017 Episodic Fluid and electrolyte disorders (20 sources) [...] Mood disorders Onset: 03-29-2024 Resolved: 12-03-2024 03-29-2024 Mycoses (20 sources) Candidiasis; Translations: [Candidiasis, unspecified] Onset: 03-22-2024 08-05-2019 Episodic Nausea and vomiting (12 sources) Nausea; Translations: [Nausea] Onset: 02-04-2008 Resolved: 02-03-2009 05-25-2015 Episodic Nonspecific chest pain (20 sources) Chest pain, unspecified; Translations: [Other chest pain] Onset: 02-16-2017 Resolved: 05-06-2023 Episodic Nutritional deficiencies (20 sources) Cobalamin deficiency; Translations: [Deficiency of other specified B group vitamins] Onset: 05-08-2023 05-08-2023 Episodic Other aftercare (7 sources) nursing home (current) use of insulin; 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: [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 USE OF INSULIN] Onset: 10-22-2022 Episodic Other aftercare (3 sources) Other half-way (current) drug therapy; Translations: [OTH 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 CURRENT DRUG THERAPY] Onset: 10-22-2022 Episodic Other aftercare (1 source) nursing home (current) use of 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/antip latelets; Translations: [LONGTERM ANTITHROMBOT/ANTIPLAT LETS] Onset: 04-02-2022 Episodic Other aftercare (20 sources) Long-term current use of drug therapy; Translations: [Encounter for therapeutic drug level monitoring] Onset: 05-13-2024 Resolved: 08-05-2024 05-13-2024 Episodic Other aftercare (2 sources) Encounter for therapeutic drug level monitoring; Translations: [Encounter for therapeutic drug level monitoring] Onset: 05-13-2024 Episodic Other aftercare (2 sources) nursing home (current) use of opiate analgesic; Translations: [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] Onset: 05-13-2024 [...] Onset: 03-17-2008 Resolved: 02-03-2009 02-03-2009 Episodic Other nervous system disorders (3 sources) [...] Onset: 05-17-2023 Resolved: 02-11-2024 02-11-2024 Episodic Other screening for suspected conditions (not mental disorders or infectious disease) (20 sources) Abnormal quantity of physiologic substance; Translations: [Culture positive for methicillin resistant Staphylococcus aureus] Onset: 11-22-2014 04-26-2016 Episodic Comment on above: 2014- armpit and chi n- treated at [facility] in [place] 2014- armpit and chi n- treated at [facility] in [place] Other skin disorders (20 sources) Disorder of skin pigmentation; Translations: [Disorder of pigmentation, unspecified] Onset: 03-22-2024 02-11-2024 Episodic Residual codes; unclassified (20 sources) Insomnia; [...] and behavioral disorders] Onset: 09-03-2023 09-03-2023 Episodic Septicemia (20 sources) Sepsis; Translations: [Bacteremia caused by Gram-positive bacteria] Onset: 12-03-2014 Resolved: 12-07-2014 12-07-2014 Episodic Skin and subcutaneous tissue infections (20 sources) Cellulitis of chin ; Translations: [Abscess of chin] Onset: 11-30-2014 Resolved: 05-06-2023 12-07-2014 Episodic Spondylosis; intervertebral disc disorders; other back problems (20 sources) Sciatica; Translations: [Neck pain] Onset: 03-15-2009 12-07-2013 Episodic Unclassified (1 source) Family history of ischemic heart disease and other diseases of the circulatory system; Translations: [Family history of ischemic heart disease and other diseases of the circulatory system] Onset: 02-16-2017 Episodic Unclassified (20 sources) Bipolar (qualifier value) 10-09-2021 Unclassified (1 source) COUGH, UNSPECIFIED; Translations: [COUGH, UNSPECIFIED] Onset: 07-30-2022 Unclassified (1 source) Onset: 08-26-2023 08-26-2023 Unclassified (1 source) Patient's noncompliance with other [...] muscle or fascia, initial encounter] Onset: 03-22-2024 Viral infection (1 source) COVID-19 Onset: 06-14-2021 Resolved: 06-14-2021 Results Test Name Value Interpretation Reference Range Facility Gent Peakon 02-03-2025 Gent Pk 4.4 microgram/mL Abnormal 5.0-10.0 [facility] Comment on above: Result Comment: Crit ical Result Verified by Repeat Analysis Critical Result S_GEN_P:4.4 Called to and read back by: TONIA SIMENTAL at: 02/03/2025 12:24:23 by:ERIN Performed By: #### 2 [id number] #### [facility] [address] [place] [address] Gent Troughon 02-03-2025 Gent Tr 3.0 microgram/mL Abnormal 0.5-1.9 [facility] Comment on above: Result Comment: Crit ical Result Verified by Repeat Analysis Critical Result S_GEN_T:3.0 Called to and read back by: TONIA SIMENTAL at: 02/03/2025 12:23:11 by:ERIN Performed By: #### 2 [id number] #### [facility] [address] [place] [address] Gent Tr Dose Tm No info given Invalid Interpretation Code [facility] Comment on above: Performed By: #### 2 [id number] #### [facility] [address] [place] [address] Lab Miscellaneous-LCon 02-03 Lab Miscellaneous clerical error Invalid Interpretation Code [facility] Comment on above: Order Comment: Cleri marquita error. Cannot be cancelled [id number] 02/03/2025 10:29:36 EDT Performed By: #### 1 [id number] #### [facility] [address] [place] [address] Test Code 713893 Invalid Interpretation Code [facility] Comment on above: Order Comment: Cleri marquita error. Cannot be cancelled [id number] 02/03/2025 10:29:36 EDT Performed By: #### 1 [id number] #### [facility] [address] [place] [address] Test Name gentamicin Invalid Interpretation Code [facility] Comment on above: Order Comment: Cleri marquita error. Cannot be cancelled [id number] 02/03/2025 10:29:36 EDT Performed By: #### 1 [id number] #### [facility] [address] [place] [address] Glucose (Bld) [Mass/Vol]on 0 02-02-2025 Glucose Blood, POC 165 mg/dL [facility] HbA1c (Bld) [Mass fraction]O rdered By: Shy Hurd on 02-02-2025 [facility] - Hematology and Cell countsOrdered By: Shy Hurd on 02-02-2025 HbA1c (Bld) [Mass fraction] 8.4 % [facility] Lab Miscellaneous-LCon 01-17 Lab Miscellaneous COMMENT Invalid Interpretation Code [facility] Comment on above: Result Comment: Test Ordered: [id number] Clonazepam, Ur as Metabolite 7-Aminoclonazepam Negative ng/ml MX This test was developed and its performance characteristics determined by [facility]. It has not been cleared or approved by the Food and Drug Administration. Performed at: [address] [id number] PhD Ronel Mercado Performed By: #### 1 [id number] #### [facility] [address] [place] [address] Lab Miscellaneous-LCon 01-09 Test Code 659019 Invalid Interpretation Code [facility] Comment on above: Performed By: #### 1 [id number] #### [facility] [address] [place] [address] Test Name Clonazepam Invalid Interpretation Code [facility] Comment on above: Performed By: #### 1 [id number] #### [facility] [address] [place] [address] U Drug Screenon 01-09-2025 U Amph Scr Negative Normal NEGATIVE [facility] Comment on above: Result Comment: Nega tive Cutoff: <1000 ng/mL Performed By: #### 2 [id number] #### [facility] [address] [place] [address] U Julianna Scr Negative Normal NEGATIVE [facility] Comment on above: Result Comment: Nega tive Cutoff: <200 ng/mL Performed By: #### 2 [id number] #### [facility] [address] [place] [address] U Benzodia Scr Negative Normal NEGATIVE [facility] Comment on above: Result Comment: Nega tive Cutoff: <200 ng/mL Performed By: #### 2 [id number] #### [facility] [address] [place] [address] U Cannab Scr Negative Normal NEGATIVE [facility] Comment on above: Result Comment: Nega tive Cutoff: <50 ng/mL Performed By: #### 2 [id number] #### [facility] [address] [place] [address] U Cocaine Scr Negative Normal NEGATIVE [facility] Comment on above: Result Comment: Nega tive Cutoff: <300 ng/mL Performed By: #### 2 [id number] #### [facility] [address] [place] [address] U Fentanyl Negative Normal NEGATIVE [facility] Comment on above: Result Comment: Nega tive Cutoff: <5 ng/mL These drug screen results are to be used for medical (i.e., treatment) purposes only. Unconfirmed drug screening results must not be used for non-medical purposes (e.g., employment testing, legal testing). Performed By: #### 2 [id number] #### [facility] [address] [place] [address] U Opiate Scr Positive Abnormal NEGATIVE [facility] Comment on above: Result Comment: If c onfirmation is required, please notify the lab within 72 hours Result verified by repeat analysis, Unconfirmed by alternate method Negative Cutoff: <300 ng/mL Performed By: #### 2 [id number] #### [facility] [address] [place] [address] U PCP Scr Negative Normal NEGATIVE [facility] Comment on above: Result Comment: Nega tive Cutoff: <25 ng/mL These drug screen results are to be used for medical (i.e., treatment) purposes only. Unconfirmed drug screening results must not be used for non-medical purposes (e.g., employment testing, legal testing). Performed By: #### 2 [id number] #### [facility] [address] [place] [address] Urine Cultureon 12-28-2024 Bacteria identified Cx Nom (U) <9,000 colonies/ml mixed bacterial skin contaminants 2 Days PERFORMED BY: [place] [address] PATHOLOGIST [employer] TOPSTITCHER HARESH BANERJEE M.D. Normal [facility] Comment on above: Performed By: #### C UU #### [facility] [address] Urine cultureOrdered By: Ricardo Horn on 12-28-2024 Bacteria identified Cx Nom (U) 2 Days [facility] BASIC METABOLIC PANELon 11-22 Anion gap [Moles/Vol] 6 mmol/L Normal 5-15 [facility] Comment on above: Performed By: #### B EDG #### [facility] ([facility]) [address] [place] [address] VIR Calcium [Mass/Vol] 8.4 mg/dL Low 8.5-10.5 [facility] Comment on above: Performed By: #### B EDG #### [facility] ([facility]) [address] [place] [address] VIR Chloride [Moles/Vol] 111 mmol/L High 98-109 [facility] Comment on above: Performed By: #### B EDG #### [facility] ([facility]) [address] [place] [address] VIR CO2 [Moles/Vol] 22 mmol/L Normal 22-32 [facility] Comment on above: Performed By: #### B EDG #### [facility] ([facility]) [address] [place] [address] VIR Creatinine [Mass/Vol] 0.95 mg/dL Normal 0.40-1.00 [facility] Comment on above: Result Comment: METH OD TRACEABLE TO IDMS STANDARD Performed By: #### B EDG #### [facility] ([facility]) [address] [place] [address] VIR GFR/1.73 sq M.predicted among non-blacks MDRD (S/P/Bld) [Vol rate/Area] 74 mL/min/{1.73_m2} Normal >=60 [facility] Comment on above: Result Comment: Repo rted eGFR is based on the CKD-EPI 2020 equation that does not use a race coefficient. Performed By: #### B EDG #### [facility] ([facility]) [address] [place] [address] VIR Glucose [Mass/Vol] 225 mg/dL High 65-99 [facility] Comment on above: Performed By: #### B EDG #### [facility] ([facility]) [address] [place] [address] VIR Potassium [Moles/Vol] 4.6 mmol/L Normal 3.5-5.0 [facility] Comment on above: Performed By: #### B EDG #### [facility] ([facility]) [address] [place] [address] VIR Sodium [Moles/Vol] 139 mmol/L Normal 134-146 [facility] Comment on above: Performed By: #### B EDG #### [facility] ([facility]) [address] [place] [address] VIR Urea nitrogen [Mass/Vol] 17 mg/dL Normal 5-23 [facility] Comment on above: Performed By: #### B EDG #### [facility] ([facility]) [address] [place] [address] VIR BEDSIDE GLUCOSEon 12-05-2024 Glucose [Mass/Vol] 244 mg/dL High 65-99 [facility] Comment on above: Performed By: #### B EDG #### [facility] ([facility]) [address] [place] [address] VIR Glucose [Mass/Vol] 265 mg/dL High 65-99 [facility] Comment on above: Performed By: #### B EDG #### [facility] ([facility]) [address] [place] [address] VIR Basic Metabolic Panelon 11-22 Anion gap [Moles/Vol] 6 mmol/L 5 - 15 mmol/L [facility] Calcium [Mass/Vol] 8.4 mg/dL Low 8.5 - 10. 5 mg/dL [facility] Chloride [Moles/Vol] 111 mmol/L High 98 - 10 9 mmol/L [facility] CO2 [Moles/Vol] 22 mmol/L 22 - 32 mmol/L [facility] Creatinine [Mass/Vol] 0.95 mg/dL 0.40 - 1.00 mg/dL [facility] Comment on above: METHOD TRACEABLE TO IDMS STANDARD EGFR Non-Race Dependent 74 - PINF [facility] Comment on above: Reported eGFR is bas ed on the CKD-EPI 2020 equation that does not use a race coefficient. Glucose [Mass/Vol] 225 mg/dL High 65 - 99 mg/dL [facility] Interpretation and review of laboratory results Abnormal [facility] Potassium [Moles/Vol] 4.6 mmol/L 3.5 - 5.0 mmol/L [facility] Sodium [Moles/Vol] 139 mmol/L 134 - 146 mmol/L [facility] Urea nitrogen [Mass/Vol] 17 mg/dL 5 - 23 mg/dL [facility] Bedside Glucose *Place/Obtai n serum glucose if >500 per glucometer.on 12-05-2024 Glucose [Mass/Vol] 244 mg/dL High 65 - 99 mg/dL [facility] Interpretation and review of laboratory results Abnormal [facility] Glucose [Mass/Vol] 265 mg/dL High 65 - 99 mg/dL [facility] Interpretation and review of laboratory results Abnormal [facility] BASIC METABOLIC PANELon 11-22 Anion gap [Moles/Vol] 8 mmol/L Normal 5-15 [facility] Comment on above: Performed By: #### B EDG #### [facility] ([facility]) [address] [place] [address] VIR Calcium [Mass/Vol] 7.6 mg/dL Low 8.5-10.5 [facility] Comment on above: Performed By: #### B EDG #### [facility] ([facility]) [address] [place] [address] VIR Chloride [Moles/Vol] 111 mmol/L High 98-109 [facility] Comment on above: Performed By: #### B EDG #### [facility] ([facility]) [address] [place] [address] VIR CO2 [Moles/Vol] 20 mmol/L Low 22-32 [facility] Comment on above: Performed By: #### B EDG #### [facility] ([facility]) [address] [place] [address] VIR Creatinine [Mass/Vol] 0.89 mg/dL Normal 0.40-1.00 [facility] Comment on above: Result Comment: METH OD TRACEABLE TO IDMS STANDARD Performed By: #### B EDG #### [facility] ([facility]) [address] [place] [address] VIR GFR/1.73 sq M.predicted among non-blacks MDRD (S/P/Bld) [Vol rate/Area] 80 mL/min/{1.73_m2} Normal >=60 [facility] Comment on above: Result Comment: Repo rted eGFR is based on the CKD-EPI 2020 equation that does not use a race coefficient. Performed By: #### B EDG #### [facility] ([facility]) [address] [place] [address] VIR Glucose [Mass/Vol] 253 mg/dL High 65-99 [facility] Comment on above: Performed By: #### B EDG #### [facility] ([facility]) [address] [place] [address] VIR Potassium [Moles/Vol] 4.3 mmol/L Normal 3.5-5.0 [facility] Comment on above: Performed By: #### B EDG #### [facility] ([facility]) [address] [place] [address] VIR Sodium [Moles/Vol] 139 mmol/L Normal 134-146 [facility] Comment on above: Performed By: #### B EDG #### [facility] ([facility]) [address] [place] [address] VIR Urea nitrogen [Mass/Vol] 15 mg/dL Normal 5-23 [facility] Comment on above: Performed By: #### B EDG #### [facility] ([facility]) [address] [place] [address] VIR BEDSIDE GLUCOSEon 12-04-2024 Glucose [Mass/Vol] 348 mg/dL High 65-99 [facility] Comment on above: Performed By: #### B EDG #### [facility] ([facility]) [address] [place] [address] VIR Glucose [Mass/Vol] 200 mg/dL [address] Comment on above: Performed By: #### B EDG #### [facility] ([facility]) [address] [place] [address] VIR Glucose [Mass/Vol] 348 mg/dL [address] Comment on above: Performed By: #### B EDG #### [facility] ([facility]) [address] [place] [address] VIR Glucose [Mass/Vol] 251 mg/dL [address] Comment on above: Performed By: #### B EDG #### [facility] ([facility]) [address] [place] [address] VIR Glucose [Mass/Vol] 262 mg/dL [address] Comment on above: Performed By: #### B EDG #### [facility] ([facility]) [address] [place] [address] VIR Basic Metabolic Panelon 07- Anion gap [Moles/Vol] 8 mmol/L 5 - 15 mmol/L [facility] Calcium [Mass/Vol] 7.6 mg/dL Low 8.5 - 10. 5 mg/dL [facility] Chloride [Moles/Vol] 111 mmol/L High 98 - 10 9 mmol/L [facility] CO2 [Moles/Vol] 20 mmol/L Low 22 - 32 mmol/L [facility] Creatinine [Mass/Vol] 0.89 mg/dL 0.40 - 1.00 mg/dL [facility] Comment on above: METHOD TRACEABLE TO IDMS STANDARD EGFR Non-Race Dependent 80 - PINF [facility] Comment on above: Reported eGFR is bas ed on the CKD-EPI 2020 equation that does not use a race coefficient. Glucose [Mass/Vol] 253 mg/dL High 65 - 99 mg/dL [facility] Interpretation and review of laboratory results Abnormal [facility] Potassium [Moles/Vol] 4.3 mmol/L 3.5 - 5.0 mmol/L [facility] Sodium [Moles/Vol] 139 mmol/L 134 - 146 mmol/L [facility] Urea nitrogen [Mass/Vol] 15 mg/dL 5 - 23 mg/dL [facility] Bedside Glucose *Place/Obtai n serum glucose if >500 per glucometer.on 12-04-2024 Glucose [Mass/Vol] 348 mg/dL High 65 - 99 mg/dL [facility] Interpretation and review of laboratory results Abnormal [facility] Glucose [Mass/Vol] 200 mg/dL High 65 - 99 mg/dL [facility] Interpretation and review of laboratory results Abnormal [facility] Glucose [Mass/Vol] 348 mg/dL High 65 - 99 mg/dL [facility] Interpretation and review of laboratory results Abnormal [facility] Glucose [Mass/Vol] 251 mg/dL High 65 - 99 mg/dL [facility] Interpretation and review of laboratory results Abnormal [facility] Glucose [Mass/Vol] 257 mg/dL High 65 - 99 mg/dL [facility] Interpretation and review of laboratory results Abnormal [facility] Glucose [Mass/Vol] 262 mg/dL High 65 - 99 mg/dL [facility] Interpretation and review of laboratory results Abnormal [facility] CBC WITH AUTO DIFFERENTIALon 12-04-2024 BASOPHILS ABSOLUTE COUNT (10*3/UL) BY AUTOMATED COUNT 0.1 10*3/uL Normal 0.0-0.2 [facility] Comment on above: Performed By: #### B EDG #### [facility] ([facility]) [address] [place] [address] VIR BASOPHILS RELATIVE PERCENT BY AUTOMATED COUNT 1.1 % Normal [facility] Comment on above: Performed By: #### B EDG #### [facility] ([facility]) [address] [place] [address] VIR CELLAVISION DIFFERENTIAL TYPE AUTOMATED DIFFERENTIAL Normal [facility] Comment on above: Performed By: #### B EDG #### [facility] ([facility]) [address] [facility] [place] [address] VIR Eosinophils (Bld) [#/Vol] 0.2 10*3/uL Normal 0.0-0.4 [facility] Comment on above: Performed By: #### B EDG #### [facility] ([facility]) [address] [place] [address] VIR EOSINOPHILS RELATIVE PERCENT BY AUTOMATED COUNT 3.0 % Normal [facility] Comment on above: Performed By: #### B EDG #### [facility] ([facility]) [address] [facility] [place] [address] VIR Erythrocyte distribution width (RBC) [Ratio] 13.5 % Normal 11.5-15 [facility] Comment on above: Performed By: #### B EDG #### [facility] ([facility]) [address] [facility] [place] [address] VIR Hematocrit (Bld) [Volume fraction] 32.7 % Low 35-47 [facility] Comment on above: Performed By: #### B EDG #### [facility] ([facility]) [address] [facility] [place] [address] VIR Hemoglobin (Bld) [Mass/Vol] 11.2 g/dL Low 11.7-15.5 [facility] Comment on above: Performed By: #### B EDG #### [facility] ([facility]) [address] [facility] [place] [address] VIR LYMPHOCYTES ABSOLUTE COUNT (10*3/UL) BY AUTOMATED COUNT 2.0 10*3/uL Normal 1.0-3.5 [facility] Comment on above: Performed By: #### B EDG #### [facility] ([facility]) [address] [facility] [place] [address] VIR LYMPHOCYTES RELATIVE PERCENT BY AUTOMATED COUNT 38.3 % Normal [facility] Comment on above: Performed By: #### B EDG #### [facility] ([facility]) [address] [place] [address] VIR MCH (RBC) [Entitic mass] 30.4 pg Normal 27-34 [facility] Comment on above: Performed By: #### B EDG #### [facility] ([facility]) [address] [place] [address] VIR MCHC (RBC) [Mass/Vol] 34.1 g/dL Normal 32-36 [facility] Comment on above: Performed By: #### B EDG #### [facility] ([facility]) [address] [place] [address] VIR MCV (RBC) [Entitic vol] 89 fL Normal 80-100 [facility] Comment on above: Performed By: #### B EDG #### [facility] ([facility]) [address] [place] [address] VIR MONOCYTES ABSOLUTE COUNT (10*3/UL) BY AUTOMATED COUNT 0.3 10*3/uL Normal 0.0-0.9 [facility] Comment on above: Performed By: #### B EDG #### [facility] ([facility]) [address] [place] [address] VIR MONOCYTES RELATIVE PERCENT BY AUTOMATED COUNT 4.8 % Normal [facility] Comment on above: Performed By: #### B EDG #### [facility] ([facility]) [address] [place] [address] VIR NEUTROPHILS ABSOLUTE COUNT BY AUTOMATED COUNT 2.8 10*3/uL Normal 1.5-6.6 [facility] Comment on above: Performed By: #### B EDG #### [facility] ([facility]) [address] [place] [address] VIR NEUTROPHILS RELATIVE PERCENT BY AUTOMATED COUNT 52.8 % Normal [facility] Comment on above: Performed By: #### B EDG #### [facility] ([facility]) [address] [place] [address] VIR Platelet mean volume (Bld) [Entitic vol] 7.5 fL Normal 7-12 [facility] Comment on above: Performed By: #### B EDG #### [facility] ([facility]) [address] [place] [address] VIR Platelets (Bld) [#/Vol] 235 10*3/uL Normal 150-450 [facility] Comment on above: Performed By: #### B EDG #### [facility] ([facility]) [address] [place] [address] VIR RBC COUNT 3.67 X10E12/L Low 3.8-5.2 [facility] Comment on above: Performed By: #### B EDG #### [facility] ([facility]) [address] [place] [address] VIR WBC (Bld) [#/Vol] 5.3 10*3/uL Normal 4-11 [facility] Comment on above: Performed By: #### B EDG #### [facility] ([facility]) [address] [place] [address] VIR CBC auto differentialon 11-22 Basophils (Bld) [#/Vol] 0.1 10*3/uL 0.0 - 0.2 10*3/uL [facility] Basophils/100 WBC (Bld) 1.1 % [facility] Differential cell count method Nom (Bld) AUTOMATED DIFFERENTIAL [facility] Eosinophils (Bld) [#/Vol] 0.2 10*3/uL 0.0 - 0.4 10*3/uL [facility] Eosinophils/100 WBC (Bld) 3 % [facility] Erythrocyte distribution width (RBC) [Ratio] 13.5 % 11.5 - 15 % [facility] Hematocrit (Bld) [Volume fraction] 32.7 % Low 35 - 47 % [facility] Hemoglobin (Bld) [Mass/Vol] 11.2 g/dL Low 11.7 - 15.5 g/dL [facility] Interpretation and review of laboratory results Abnormal [facility] Lymphocytes (Bld) [#/Vol] 2 10*3/uL 1.0 - 3.5 10*3/uL [facility] Lymphocytes/100 WBC (Bld) 38.3 % [facility] MCH (RBC) [Entitic mass] 30.4 pg 27 - 34 pg [facility] MCHC (RBC) [Mass/Vol] 34.1 g/dL 32 - 3 6 g/dL [facility] MCV (RBC) [Entitic vol] 89 fL 80 - 100 fL [facility] Monocytes (Bld) [#/Vol] 0.3 10*3/uL 0.0 - 0.9 10*3/uL [facility] Monocytes/100 WBC (Bld) 4.8 % [facility] Neutrophils (Bld) [#/Vol] 2.8 10*3/uL 1.5 - 6.6 10*3/uL [facility] Neutrophils/100 WBC (Bld) 52.8 % [facility] Platelet mean volume (Bld) [Entitic vol] 7.5 fL 7 - 12 fL [facility] Platelets (Bld) [#/Vol] 235 10*3/uL [facility] RBC (Bld) [#/Vol] 3.67 10*6/uL Low [facility] WBC LM Ql (Sput) 5.3 [facility] Electrolyte panelon 12-05-19 Anion gap [Moles/Vol] 6 mmol/L 5 - 15 mmol/L [facility] Chloride [Moles/Vol] 110 mmol/L High 98 - 10 9 mmol/L [facility] CO2 [Moles/Vol] 20 mmol/L Low 22 - 32 mmol/L [facility] Interpretation and review of laboratory results Abnormal [facility] Potassium [Moles/Vol] 4.4 mmol/L 3.5 - 5.0 mmol/L [facility] Sodium [Moles/Vol] 136 mmol/L 134 - 146 mmol/L [facility] APTTon 12-03-2024 aPTT Coag (PPP) [Time] 25 s Low [facility] Interpretation and review of laboratory results Abnormal [facility] aPTT Coag (Bld) [Time] 25 s Low 26-37 [facility] Comment on above: Performed By: #### C MP #### [facility] ([facility]) [address] [place] [address] VIR BEDSIDE GLUCOSEon 12-03-2024 Glucose [Mass/Vol] 257 mg/dL High [address] Comment on above: Performed By: #### B EDG #### [facility] ([facility]) [address] [place] [address] VIR Glucose [Mass/Vol] 238 mg/dL High [address] [place] [address] Comment on above: Performed By: #### B EDG #### [facility] ([facility]) [address] [place] [address] VIR Glucose [Mass/Vol] 114 mg/dL High [address] [place] [address] Comment on above: Performed By: #### B EDG #### [facility] ([facility]) [address] [place] [address] VIR Glucose [Mass/Vol] 237 mg/dL [address] Comment on above: Performed By: #### C MP #### [facility] ([facility]) [address] [place] [address] VIR Glucose [Mass/Vol] 269 mg/dL High [address] [place] [address] Comment on above: Performed By: #### C MP #### [facility] ([facility]) [address] [place] [address] VIR Glucose [Mass/Vol] 281 mg/dL High [address] [place] [address] Comment on above: Performed By: #### C MP #### [facility] ([facility]) [address] [place] [address] VIR Glucose [Mass/Vol] 301 mg/dL High [address] [place] [address] Comment on above: Performed By: #### C MP #### [facility] ([facility]) [address] [place] [address] VIR Glucose [Mass/Vol] 287 mg/dL High [address] [place] [address] Comment on above: Performed By: #### C MP #### [facility] ([facility]) [address] [place] [address] VIR Glucose [Mass/Vol] 344 mg/dL High 65-99 [facility] Comment on above: Performed By: #### C MP #### [facility] ([facility]) [address] [place] [address] VIR Glucose [Mass/Vol] 318 mg/dL High [address] [place] [address] Comment on above: Performed By: #### B EDG #### [facility] ([facility]) [address] [place] [address] VIR Glucose [Mass/Vol] 409 mg/dL Critically high 65-99 [facility] Comment on above: Performed By: #### B EDG #### [facility] ([facility]) [address] [place] [address] VIR BEDSIDE GLUCOSE BEDG >^500 Critically high [address] [place] [address] Comment on above: Performed By: #### B EDG #### [facility] ([facility]) [address] [place] [address] VIR BEDSIDE GLUCOSE BEDG >^500 Critically high [address] [place] [address] Comment on above: Performed By: #### B EDG #### [facility] ([facility]) [address] [place] [address] VIR Bedside Glucose *Place/Obtai n serum glucose if >500 per glucometer.on 12-03-2024 Glucose [Mass/Vol] 238 mg/dL High 65 - 99 mg/dL [facility] Interpretation and review of laboratory results Abnormal [facility] Glucose [Mass/Vol] 114 mg/dL High 65 - 99 mg/dL [facility] Interpretation and review of laboratory results Abnormal [facility] Glucose [Mass/Vol] 269 mg/dL High 65 - 99 mg/dL [facility] Glucose [Mass/Vol] 237 mg/dL High 65 - 99 mg/dL [facility] Glucose [Mass/Vol] 281 mg/dL High 65 - 99 mg/dL [facility] Interpretation and review of laboratory results Abnormal [facility] Glucose [Mass/Vol] 301 mg/dL High 65 - 99 mg/dL [facility] Interpretation and review of laboratory results Abnormal [facility] Glucose [Mass/Vol] 287 mg/dL High 65 - 99 mg/dL [facility] Interpretation and review of laboratory results Abnormal [facility] Glucose [Mass/Vol] 344 mg/dL High 65 - 99 mg/dL [facility] Interpretation and review of laboratory results Abnormal [facility] Glucose [Mass/Vol] 318 mg/dL High 65 - 99 mg/dL [facility] Interpretation and review of laboratory results Abnormal [facility] Glucose [Mass/Vol] 409 mg/dL Critically high 65 - 9 9 mg/dL [facility] Interpretation and review of laboratory results Abnormal [facility] Glucose [Mass/Vol] mg/dL Critically high 65 - 9 9 mg/dL [facility] Interpretation and review of laboratory results Abnormal [facility] Glucose [Mass/Vol] mg/dL Critically high 65 - 9 9 mg/dL [facility] Interpretation and review of laboratory results Abnormal [facility] CBC WITH AUTO DIFFERENTIALon 12-03-2024 BASOPHILS ABSOLUTE COUNT (10*3/UL) BY AUTOMATED COUNT 0.1 10*3/uL Normal 0.0-0.2 [facility] Comment on above: Performed By: #### C BCA #### [facility] ([facility]) [address] [place] [address] VIR BASOPHILS RELATIVE PERCENT BY AUTOMATED COUNT 1.5 % Normal [facility] Comment on above: Performed By: #### C BCA #### [facility] ([facility]) [address] [place] [address] VIR CELLAVISION DIFFERENTIAL TYPE AUTOMATED DIFFERENTIAL Normal [facility] Comment on above: Performed By: #### C BCA #### [facility] ([facility]) [address] [place] [address] VIR Eosinophils (Bld) [#/Vol] 0.2 10*3/uL Normal 0.0-0.4 [facility] Comment on above: Performed By: #### C BCA #### [facility] ([facility]) [address] [facility] [address] [place] [address] VIR EOSINOPHILS RELATIVE PERCENT BY AUTOMATED COUNT 2.3 % Normal [facility] Comment on above: Performed By: #### C BCA #### [facility] ([facility]) [address] [place] [address] VIR Erythrocyte distribution width (RBC) [Ratio] 13.5 % Normal 11.5-15 [facility] Comment on above: Performed By: #### C BCA #### [facility] ([facility]) [address] [place] [address] VIR Hematocrit (Bld) [Volume fraction] 34.1 % Low 35-47 [facility] Comment on above: Performed By: #### C BCA #### [facility] ([facility]) [address] [place] [address] VIR Hemoglobin (Bld) [Mass/Vol] 11.7 g/dL Normal 11.7-15.5 [facility] Comment on above: Performed By: #### C BCA #### [facility] ([facility]) [address] [place] [address] VIR LYMPHOCYTES ABSOLUTE COUNT (10*3/UL) BY AUTOMATED COUNT 2.6 10*3/uL Normal 1.0-3.5 [facility] Comment on above: Performed By: #### C BCA #### [facility] ([facility]) [address] [place] [address] VIR LYMPHOCYTES RELATIVE PERCENT BY AUTOMATED COUNT 33.5 % Normal [facility] Comment on above: Performed By: #### C BCA #### [facility] ([facility]) [address] [place] [address] VIR MCH (RBC) [Entitic mass] 30.7 pg Normal 27-34 [facility] Comment on above: Performed By: #### C BCA #### [facility] ([facility]) [address] [place] [address] VIR MCHC (RBC) [Mass/Vol] 34.3 g/dL Normal 32-36 [facility] Comment on above: Performed By: #### C BCA #### [facility] ([facility]) [address] [place] [address] VIR MCV (RBC) [Entitic vol] 89 fL Normal 80-100 [facility] Comment on above: Performed By: #### C BCA #### [facility] ([facility]) [address] [place] [address] VIR MONOCYTES ABSOLUTE COUNT (10*3/UL) BY AUTOMATED COUNT 0.5 10*3/uL Normal 0.0-0.9 [facility] Comment on above: Performed By: #### C BCA #### [facility] ([facility]) [address] [place] [address] VIR MONOCYTES RELATIVE PERCENT BY AUTOMATED COUNT 6.3 % Normal [facility] Comment on above: Performed By: #### C BCA #### [facility] ([facility]) [address] [place] [address] VIR NEUTROPHILS ABSOLUTE COUNT BY AUTOMATED COUNT 4.4 10*3/uL Normal 1.5-6.6 [facility] Comment on above: Performed By: #### C BCA #### [facility] ([facility]) [address] [place] [address] VIR NEUTROPHILS RELATIVE PERCENT BY AUTOMATED COUNT 56.4 % Normal [facility] Comment on above: Performed By: #### C BCA #### [facility] ([facility]) [address] [place] [address] VIR Platelet mean volume (Bld) [Entitic vol] 7.5 fL Normal 7-12 [facility] Comment on above: Performed By: #### C BCA #### [facility] ([facility]) [address] [place] [address] VIR Platelets (Bld) [#/Vol] 244 10*3/uL Normal 150-450 [facility] Comment on above: Performed By: #### C BCA #### [facility] ([facility]) [address] [place] [address] VIR RBC COUNT 3.81 X10E12/L Normal 3.8-5.2 [facility] Comment on above: Performed By: #### C BCA #### [facility] ([facility]) [address] [facility] [address] [place] [address] VIR WBC (Bld) [#/Vol] 7.7 10*3/uL Normal 4-11 [facility] Comment on above: Performed By: #### C BCA #### [facility] ([facility]) [address] [facility] [address] [place] [address] VIR BASOPHILS ABSOLUTE COUNT (10*3/UL) BY AUTOMATED COUNT 0.1 10*3/uL Normal 0.0-0.2 [facility] Comment on above: Performed By: #### C BCA #### [facility] ([facility]) [address] [place] [address] VIR BASOPHILS RELATIVE PERCENT BY AUTOMATED COUNT 1.0 % Normal [facility] Comment on above: Performed By: #### C BCA #### [facility] ([facility]) [address] [place] [address] VIR CELLAVISION DIFFERENTIAL TYPE AUTOMATED DIFFERENTIAL Normal [facility] Comment on above: Performed By: #### C BCA #### [facility] ([facility]) [address] [place] [address] VIR Eosinophils (Bld) [#/Vol] 0.1 10*3/uL Normal 0.0-0.4 [facility] Comment on above: Performed By: #### C BCA #### [facility] ([facility]) [address] [place] [address] VIR EOSINOPHILS RELATIVE PERCENT BY AUTOMATED COUNT 2.1 % Normal [facility] Comment on above: Performed By: #### C BCA #### [facility] ([facility]) [address] [place] [address] VIR Erythrocyte distribution width (RBC) [Ratio] 13.5 % Normal 11.5-15 [facility] Comment on above: Performed By: #### C BCA #### [facility] ([facility]) [address] [place] [address] VIR Hematocrit (Bld) [Volume fraction] 38.7 % Normal 35-47 [facility] Comment on above: Performed By: #### C BCA #### [facility] ([facility]) [address] [place] [address] VIR Hemoglobin (Bld) [Mass/Vol] 13.2 g/dL Normal 11.7-15.5 [facility] Comment on above: Performed By: #### C BCA #### [facility] ([facility]) [address] [place] [address] VIR LYMPHOCYTES ABSOLUTE COUNT (10*3/UL) BY AUTOMATED COUNT 1.7 10*3/uL Normal 1.0-3.5 [facility] Comment on above: Performed By: #### C BCA #### [facility] ([facility]) [address] [place] [address] VIR LYMPHOCYTES RELATIVE PERCENT BY AUTOMATED COUNT 24.3 % Normal [facility] Comment on above: Performed By: #### C BCA #### [facility] ([facility]) [address] [place] [address] VIR MCH (RBC) [Entitic mass] 31.0 pg Normal 27-34 [facility] Comment on above: Performed By: #### C BCA #### [facility] ([facility]) [address] [place] [address] VIR MCHC (RBC) [Mass/Vol] 34.0 g/dL Normal 32-36 [facility] Comment on above: Performed By: #### C BCA #### [facility] ([facility]) [address] [place] [address] VIR MCV (RBC) [Entitic vol] 91 fL Normal 80-100 [facility] Comment on above: Performed By: #### C BCA #### [facility] ([facility]) [address] [place] [address] VIR MONOCYTES ABSOLUTE COUNT (10*3/UL) BY AUTOMATED COUNT 0.4 10*3/uL Normal 0.0-0.9 [facility] Comment on above: Performed By: #### C BCA #### [facility] ([facility]) [address] [place] [address] VIR MONOCYTES RELATIVE PERCENT BY AUTOMATED COUNT 6.1 % Normal [facility] Comment on above: Performed By: #### C BCA #### [facility] ([facility]) [address] [place] [address] VIR NEUTROPHILS ABSOLUTE COUNT BY AUTOMATED COUNT 4.7 10*3/uL Normal 1.5-6.6 [facility] Comment on above: Performed By: #### C BCA #### [facility] ([facility]) [address] [place] [address] VIR NEUTROPHILS RELATIVE PERCENT BY AUTOMATED COUNT 66.5 % Normal [facility] Comment on above: Performed By: #### C BCA #### [facility] ([facility]) [address] [place] [address] VIR Platelet mean volume (Bld) [Entitic vol] 8.2 fL Normal 7-12 [facility] Comment on above: Performed By: #### C BCA #### [facility] ([facility]) [address] [place] [address] VIR Platelets (Bld) [#/Vol] 234 10*3/uL Normal 150-450 [facility] Comment on above: Performed By: #### C BCA #### [facility] ([facility]) [address] [place] [address] VIR RBC COUNT 4.24 X10E12/L Normal 3.8-5.2 [facility] Comment on above: Performed By: #### C BCA #### [facility] ([facility]) [address] [place] [address] VIR WBC (Bld) [#/Vol] 7.1 10*3/uL Normal 4-11 [facility] Comment on above: Performed By: #### C BCA #### [facility] ([facility]) [address] [place] [address] VIR CBC auto differentialon 11-22 Basophils (Bld) [#/Vol] 0.1 10*3/uL 0.0 - 0.2 10*3/uL [facility] Basophils/100 WBC (Bld) 1.5 % [facility] Differential cell count method Nom (Bld) AUTOMATED DIFFERENTIAL [facility] Eosinophils (Bld) [#/Vol] 0.2 10*3/uL 0.0 - 0.4 10*3/uL [facility] Eosinophils/100 WBC (Bld) 2.3 % [facility] Erythrocyte distribution width (RBC) [Ratio] 13.5 % 11.5 - 15 % [facility] Hematocrit (Bld) [Volume fraction] 34.1 % Low 35 - 47 % [facility] Hemoglobin (Bld) [Mass/Vol] 11.7 g/dL 11.7 - 15.5 g/dL [facility] Interpretation and review of laboratory results Abnormal [facility] Lymphocytes (Bld) [#/Vol] 2.6 10*3/uL 1.0 - 3.5 10*3/uL [facility] Lymphocytes/100 WBC (Bld) 33.5 % [facility] MCH (RBC) [Entitic mass] 30.7 pg 27 - 34 pg [facility] MCHC (RBC) [Mass/Vol] 34.3 g/dL 32 - 3 6 g/dL [facility] MCV (RBC) [Entitic vol] 89 fL 80 - 100 fL [facility] Monocytes (Bld) [#/Vol] 0.5 10*3/uL 0.0 - 0.9 10*3/uL [facility] Monocytes/100 WBC (Bld) 6.3 % [facility] Neutrophils (Bld) [#/Vol] 4.4 10*3/uL 1.5 - 6.6 10*3/uL [facility] Neutrophils/100 WBC (Bld) 56.4 % [facility] Platelet mean volume (Bld) [Entitic vol] 7.5 fL 7 - 12 fL [facility] Platelets (Bld) [#/Vol] 244 10*3/uL [facility] RBC (Bld) [#/Vol] 3.81 10*6/uL [facility] WBC LM Ql (Sput) 7.7 [facility] Basophils (Bld) [#/Vol] 0.1 10*3/uL 0.0 - 0.2 10*3/uL [facility] Basophils/100 WBC (Bld) 1 % [facility] Differential cell count method Nom (Bld) AUTOMATED DIFFERENTIAL [facility] Eosinophils (Bld) [#/Vol] 0.1 10*3/uL 0.0 - 0.4 10*3/uL [facility] Eosinophils/100 WBC (Bld) 2.1 % [facility] Erythrocyte distribution width (RBC) [Ratio] 13.5 % 11.5 - 15 % [facility] Hematocrit (Bld) [Volume fraction] 38.7 % 35 - 47 % [facility] Hemoglobin (Bld) [Mass/Vol] 13.2 g/dL 11.7 - 15.5 g/dL [facility] Lymphocytes (Bld) [#/Vol] 1.7 10*3/uL 1.0 - 3.5 10*3/uL [facility] Lymphocytes/100 WBC (Bld) 24.3 % [facility] MCH (RBC) [Entitic mass] 31 pg 27 - 34 pg [facility] MCHC (RBC) [Mass/Vol] 34 g/dL 32 - 3 6 g/dL [facility] MCV (RBC) [Entitic vol] 91 fL 80 - 100 fL [facility] Monocytes (Bld) [#/Vol] 0.4 10*3/uL 0.0 - 0.9 10*3/uL [facility] Monocytes/100 WBC (Bld) 6.1 % [facility] Neutrophils (Bld) [#/Vol] 4.7 10*3/uL 1.5 - 6.6 10*3/uL [facility] Neutrophils/100 WBC (Bld) 66.5 % [facility] Platelet mean volume (Bld) [Entitic vol] 8.2 fL 7 - 12 fL [facility] Platelets (Bld) [#/Vol] 234 10*3/uL [facility] RBC (Bld) [#/Vol] 4.24 10*6/uL [facility] WBC LM Ql (Sput) 7.1 [facility] COMPREHENSIVE METABOLIC PANE [place] 12-03-2024 Albumin [Mass/Vol] 3.4 g/dL Normal 3.2-5.3 [facility] Comment on above: Performed By: #### C MP #### [facility] ([facility]) [address] [place] [address] VIR ALP [Catalytic activity/Vol] 104 U/L Normal 39-130 [facility] Comment on above: Performed By: #### C MP #### [facility] ([facility]) [address] [place] [address] VIR ALT [Catalytic activity/Vol] 10 U/L Normal <=31 [facility] Comment on above: Performed By: #### C MP #### [facility] ([facility]) [address] [place] [address] VIR Anion gap [Moles/Vol] 11 mmol/L Normal 5-15 [facility] Comment on above: Performed By: #### C MP #### [facility] ([facility]) [address] [place] [address] VIR AST [Catalytic activity/Vol] 11 U/L Normal <=41 [facility] Comment on above: Performed By: #### C MP #### [facility] ([facility]) [address] [place] [address] VIR Bilirubin [Mass/Vol] 0.4 mg/dL Normal 0.3-1.2 [facility] Comment on above: Performed By: #### C MP #### [facility] ([facility]) [address] [place] [address] VIR Calcium [Mass/Vol] 8.1 mg/dL Low 8.5-10.5 [facility] Comment on above: Performed By: #### C MP #### [facility] ([facility]) [address] [place] [address] VIR Chloride [Moles/Vol] 101 mmol/L Normal 98-109 [facility] Comment on above: Performed By: #### C MP #### [facility] ([facility]) [address] [place] [address] VIR CO2 [Moles/Vol] 21 mmol/L Low 22-32 [facility] Comment on above: Performed By: #### C MP #### [facility] ([facility]) [address] [place] [address] VIR Creatinine [Mass/Vol] 1.40 mg/dL High 0.40-1.00 [facility] Comment on above: Result Comment: METH OD TRACEABLE TO IDMS STANDARD Performed By: #### C MP #### [facility] ([facility]) [address] [place] [address] VIR GFR/1.73 sq M.predicted among non-blacks MDRD (S/P/Bld) [Vol rate/Area] 47 mL/min/{1.73_m2} Low >=60 [facility] Comment on above: Result Comment: Repo rted eGFR is based on the CKD-EPI 2020 equation that does not use a race coefficient. Performed By: #### C MP #### [facility] ([facility]) [address] [place] [address] VIR Glucose [Mass/Vol] 640 mg/dL Critically high 65-99 [facility] Comment on above: Performed By: #### C MP #### [facility] ([facility]) [address] [place] [address] VIR Potassium [Moles/Vol] 4.3 mmol/L Normal 3.5-5.0 [facility] Comment on above: Performed By: #### C MP #### [facility] ([facility]) [address] [place] [address] VIR Protein [Mass/Vol] 6.0 g/dL Normal 6.0-8.0 [facility] Comment on above: Performed By: #### C MP #### [facility] ([facility]) [address] [place] [address] VIR Sodium [Moles/Vol] 133 mmol/L Low 134-146 [facility] Comment on above: Performed By: #### C MP #### [facility] ([facility]) [address] [place] [address] VIR Urea nitrogen [Mass/Vol] 21 mg/dL Normal 5-23 [facility] Comment on above: Performed By: #### C MP #### [facility] ([facility]) [address] [place] [address] VIR Comprehensive metabolic pane lOrdered By: Etelvina Richards on 12-03-2024 Albumin [Mass/Vol] 3.4 g/dL 3.2 - 5.3 g/dL [facility] ALP [Catalytic activity/Vol] 104 U/L 39 - 130 U/L [facility] ALT No additional P-5'-P [Catalytic activity/Vol] 10 U/L NINF - 31 U/L [facility] Anion gap [Moles/Vol] 11 mmol/L 5 - 15 mmol/L [facility] AST [Catalytic activity/Vol] 11 U/L NINF - 41 U/L [facility] Bilirubin [Mass/Vol] 0.4 mg/dL 0.3 - 1 .2 mg/dL [facility] Calcium [Mass/Vol] 8.1 mg/dL Low 8.5 - 10. 5 mg/dL [facility] Chloride [Moles/Vol] 101 mmol/L 98 - 10 9 mmol/L [facility] CO2 [Moles/Vol] 21 mmol/L Low 22 - 32 mmol/L [facility] Creatinine [Mass/Vol] 1.4 mg/dL High 0.40 - 1.00 mg/dL [facility] Comment on above: METHOD TRACEABLE TO IDMS STANDARD EGFR Non-Race Dependent 47 Low - PINF [facility] Comment on above: Reported eGFR is bas ed on the CKD-EPI 2020 equation that does not use a race coefficient. Glucose [Mass/Vol] 640 mg/dL Critically high 65 - 9 9 mg/dL [facility] Interpretation and review of laboratory results Abnormal [facility] Potassium [Moles/Vol] 4.3 mmol/L 3.5 - 5.0 mmol/L [facility] Protein [Mass/Vol] 6 g/dL 6.0 - 8.0 g/dL [facility] Sodium [Moles/Vol] 133 mmol/L Low 134 - 146 mmol/L [facility] Urea nitrogen [Mass/Vol] 21 mg/dL 5 - 23 mg/dL [facility] ELECTROLYTE PANELon 12-04-19 25 Anion gap [Moles/Vol] 6 mmol/L Normal 5-15 [facility] Comment on above: Performed By: #### B EDG #### [facility] ([facility]) [address] [facility] [place] [address] VIR Chloride [Moles/Vol] 110 mmol/L High 98-109 [facility] Comment on above: Performed By: #### B EDG #### [facility] ([facility]) [address] [place] [address] VIR CO2 [Moles/Vol] 20 mmol/L Low 22-32 [facility] Comment on above: Performed By: #### B EDG #### [facility] ([facility]) [address] [place] [address] VIR Potassium [Moles/Vol] 4.4 mmol/L Normal 3.5-5.0 [facility] Comment on above: Performed By: #### B EDG #### [facility] ([facility]) [address] [place] [address] VIR Sodium [Moles/Vol] 136 mmol/L Normal 134-146 [facility] Comment on above: Performed By: #### B EDG #### [facility] ([facility]) [address] [place] [address] VIR ELECTROLYTE PANEL ELEC ELECTROLYTE KENDRICK EL Cancelled Normal [facility] Comment on above: Order Comment: See 2 [id number] Anion gap [Moles/Vol] 7 mmol/L Normal 5-15 [facility] Comment on above: Performed By: #### B EDG #### [facility] ([facility]) [address] [place] [address] VIR Chloride [Moles/Vol] 109 mmol/L Normal 98-109 [facility] Comment on above: Performed By: #### B EDG #### [facility] ([facility]) [address] [place] [address] VIR CO2 [Moles/Vol] 21 mmol/L Low 22-32 [facility] Comment on above: Performed By: #### B EDG #### [facility] ([facility]) [address] [facility] [place] [address] VIR Potassium [Moles/Vol] 4.4 mmol/L Normal 3.5-5.0 [facility] Comment on above: Performed By: #### B EDG #### [facility] ([facility]) [address] [place] [address] VIR Sodium [Moles/Vol] 137 mmol/L Normal 134-146 [facility] Comment on above: Performed By: #### B EDG #### [facility] ([facility]) [address] [facility] [place] [address] VIR Anion gap [Moles/Vol] 8 mmol/L Normal 5-15 [facility] Comment on above: Performed By: #### C MP #### [facility] ([facility]) [address] [place] [address] VIR Chloride [Moles/Vol] 107 mmol/L Normal 98-109 [facility] Comment on above: Performed By: #### C MP #### [facility] ([facility]) [address] [place] [address] VIR CO2 [Moles/Vol] 23 mmol/L Normal 22-32 [facility] Comment on above: Performed By: #### C MP #### [facility] ([facility]) [address] [place] [address] VIR Potassium [Moles/Vol] 4.2 mmol/L Normal 3.5-5.0 [facility] Comment on above: Performed By: #### C MP #### [facility] ([facility]) [address] [place] [address] VIR Sodium [Moles/Vol] 138 mmol/L Normal 134-146 [facility] Comment on above: Performed By: #### C MP #### [facility] ([facility]) [address] [place] [address] VIR Anion gap [Moles/Vol] 7 mmol/L Normal 5-15 [facility] Comment on above: Performed By: #### C MP #### [facility] ([facility]) [address] [place] [address] VIR Chloride [Moles/Vol] 106 mmol/L Normal 98-109 [facility] Comment on above: Performed By: #### C MP #### [facility] ([facility]) [address] [place] [address] VIR CO2 [Moles/Vol] 24 mmol/L Normal 22-32 [facility] Comment on above: Performed By: #### C MP #### [facility] ([facility]) [address] [place] [address] VIR Potassium [Moles/Vol] 4.2 mmol/L Normal 3.5-5.0 [facility] Comment on above: Performed By: #### C MP #### [facility] ([facility]) [address] [place] [address] VIR Sodium [Moles/Vol] 137 mmol/L Normal 134-146 [facility] Comment on above: Performed By: #### C MP #### [facility] ([facility]) [address] [place] [address] VIR Anion gap [Moles/Vol] 11 mmol/L Normal 5-15 [facility] Comment on above: Performed By: #### C MP #### [facility] ([facility]) [address] [place] [address] VIR Chloride [Moles/Vol] 105 mmol/L Normal 98-109 [facility] Comment on above: Performed By: #### C MP #### [facility] ([facility]) [address] [place] [address] VIR CO2 [Moles/Vol] 21 mmol/L Low 22-32 [facility] Comment on above: Performed By: #### C MP #### [facility] ([facility]) [address] [place] [address] VIR Potassium [Moles/Vol] 3.8 mmol/L Normal 3.5-5.0 [facility] Comment on above: Performed By: #### C MP #### [facility] ([facility]) [address] [place] [address] VIR Sodium [Moles/Vol] 137 mmol/L Normal 134-146 [facility] Comment on above: Performed By: #### C MP #### [facility] ([facility]) [address] [place] [address] VIR ELECTROLYTE PANEL ELEC ELECTROLYTE KENDRICK EL Cancelled Normal [facility] Electrolyte panelon 12-04-19 25 Anion gap [Moles/Vol] 7 mmol/L 5 - 15 mmol/L [facility] Chloride [Moles/Vol] 109 mmol/L 98 - 10 9 mmol/L [facility] CO2 [Moles/Vol] 21 mmol/L Low 22 - 32 mmol/L [facility] Interpretation and review of laboratory results Abnormal [facility] Potassium [Moles/Vol] 4.4 mmol/L 3.5 - 5.0 mmol/L [facility] Sodium [Moles/Vol] 137 mmol/L 134 - 146 mmol/L [facility] Anion gap [Moles/Vol] 8 mmol/L 5 - 15 mmol/L [facility] Chloride [Moles/Vol] 107 mmol/L 98 - 10 9 mmol/L [facility] CO2 [Moles/Vol] 23 mmol/L 22 - 32 mmol/L [facility] Interpretation and review of laboratory results Normal [facility] Potassium [Moles/Vol] 4.2 mmol/L 3.5 - 5.0 mmol/L [facility] Sodium [Moles/Vol] 138 mmol/L 134 - 146 mmol/L [facility] Anion gap [Moles/Vol] 7 mmol/L 5 - 15 mmol/L [facility] Chloride [Moles/Vol] 106 mmol/L 98 - 10 9 mmol/L [facility] CO2 [Moles/Vol] 24 mmol/L 22 - 32 mmol/L [facility] Interpretation and review of laboratory results Normal [facility] Potassium [Moles/Vol] 4.2 mmol/L 3.5 - 5.0 mmol/L [facility] Sodium [Moles/Vol] 137 mmol/L 134 - 146 mmol/L [facility] Anion gap [Moles/Vol] 11 mmol/L 5 - 15 mmol/L [facility] Chloride [Moles/Vol] 105 mmol/L 98 - 10 9 mmol/L [facility] CO2 [Moles/Vol] 21 mmol/L Low 22 - 32 mmol/L [facility] Interpretation and review of laboratory results Abnormal [facility] Potassium [Moles/Vol] 3.8 mmol/L 3.5 - 5.0 mmol/L [facility] Sodium [Moles/Vol] 137 mmol/L 134 - 146 mmol/L [facility] HEMOGLOBIN A1Con 12-03-2024 Glucose [Mass/Vol] 344 mg/dL Normal [facility] Comment on above: Performed By: #### H A1C #### [facility] ([facility]) [address] [place] [address] VIR HbA1c (Bld) [Mass fraction] 13.6 % High 4.4-5.6 [facility] Comment on above: Result Comment: ADA Guidelines Result HgbA1c Normal : less than 5.7 % Prediabetes : 5.7 % to 6.4 % Diabetes : > 6.4 % Use with caution in patients with abnormal hemoglobin variants as the half-life of red blood cells and in vivo glycation rates are affected. Performed By: #### H A1C #### [facility] ([facility]) [address] [place] [address] VIR Hemoglobin A1con 12-03-2024 Average glucose Estimated from glycated hemoglobin (Bld) [Mass/Vol] 344 mg/dL [facility] HbA1c (Bld) [Mass fraction] 13.6 % High 4.4 - 5.6 % [facility] Comment on above: ADA Guidelines Result HgbA1c Normal : less than 5.7 % Prediabetes : 5.7 % to 6.4 % Diabetes : > 6.4 % Use with caution in patients with abnormal hemoglobin variants as the half-life of red blood cells and in vivo glycation rates are affected. Interpretation and review of laboratory results Abnormal [facility] No Panel Informationon 12-03 Interpretation and review of laboratory results Abnormal [facility] TSH WITH REFLEXon 12-03-2024 TSH 3.02 uIU/mL Normal 0.49-4.67 [facility] Comment on above: Performed By: #### T SHR #### [facility] ([facility]) [address] [place] [address] VIR TSH with Reflexon 12-03-2024 Interpretation and review of laboratory results Normal [facility] TSH Qn 3.02 m[IU]/L [facility] 30on 10-05-2024 30 The patient is Moder ately Stable - Low risk of patient condition declining or worsening The patient's goals for the shift include comfort The clinical goals for the shift include safety Normal [facility] BASIC METABOLIC PANELon 05- Anion gap [Moles/Vol] 9 mmol/L Normal 7-20 [facility] Comment on above: Performed By: #### L [id number] #### [facility] ([facility]) [address] [place] [address] Calcium [Mass/Vol] 8.4 mg/dL Low 8.6-10.3 [facility] Comment on above: Performed By: #### L [id number] #### [facility]) [address] [place] [address] Chloride [Moles/Vol] 109 mmol/L High 98-107 [facility] Comment on above: Performed By: #### L [id number] #### [facility] [address] [place] [address] CO2 [Moles/Vol] 28 mmol/L Normal 21-31 [facility] Comment on above: Performed By: #### L [id number] #### [facility] ([facility]) [address] [place] [address] Creatinine [Mass/Vol] 1.26 mg/dL High 0.60-1.20 [facility] Comment on above: Performed By: #### L [id number] #### [facility] ([facility]) [address] [place] [address] GLOMERULAR FILTRATION RATE ML/MIN/1.73 SQ M.PREDICTED 53.0 mL/min/1.73m*2 Low >60.0 [facility] Comment on above: Result Comment: [facility]???s estimated glomerular filtration rate (eGFR) will [...] group of individuals. Performed By: #### L [id number] #### [facility] ([facility]) [address] [place] [address] Glucose [Mass/Vol] 108 mg/dL High 70-100 [facility] Comment on above: Performed By: #### L [id number] #### [facility] ([facility]) [address] [place] [address] Potassium [Moles/Vol] 4.1 mmol/L Normal 3.5-5.1 [facility] Comment on above: Performed By: #### L [id number] #### [facility] ([facility]) [address] [place] [address] Sodium [Moles/Vol] 142 mmol/L Normal 136-145 [facility] Comment on above: Performed By: #### L [id number] #### [facility] ([facility]) [address] [place] [address] Urea nitrogen [Mass/Vol] 28 mg/dL High 7-25 [facility] Comment on above: Performed By: #### L [id number] #### [facility] ([facility]) [address] [place] [address] UREA NITROGEN/CREATININE (MASS RATIO) IN SER/PLAS 22.2 Normal [facility] Comment on above: Performed By: #### L [id number] #### [facility] ([facility]) [address] [place] [address] CBC WITH AUTO DIFFERENTIALon 10-05-2024 Basophils (Bld) [#/Vol] 0.06 10*3/uL Normal 0.00-0.20 [facility] Comment on above: Performed By: #### L [id number] ####[facility] ([facility])[address] [place] [address] Basophils/100 WBC (Bld) 1.1 % High 0.0-1.0 [facility] Comment on above: Performed By: #### L [id number] ####[facility] ([facility])[address] [place] [address] Eosinophils (Bld) [#/Vol] 0.19 10*3/uL Normal 0.00-0.50 [facility] Comment on above: Performed By: #### L [id number] ####[facility] [facility] ([facility])[address] [place] [address] Eosinophils/100 WBC (Bld) 3.5 % Normal 0.0-6.0 [facility] Comment on above: Performed By: #### L [id number] ####[facility] ([facility])[address] [place] [address] Erythrocyte distribution width (RBC) [Ratio] 13.5 % Normal 11.5-15.0 [facility] Comment on above: Performed By: #### L [id number] ####[facility] ([facility])[address] [place] [address] ERYTHROCYTE MEAN CORPUSCULAR HEMOGLOBIN CONCENTRATION (G/DL) BY AUTOMATED 32.4 g/dL Normal 32.0-35.0 [facility] Comment on above: Performed By: #### L [id number] ####[facility] ([facility])[address] [place] [address] Hematocrit (Bld) [Volume fraction] 31.5 % Low 36.0-45.0 [facility] Comment on above: Performed By: #### L [id number] ####[facility] ([facility])[address] [place] [address] Hemoglobin (Bld) [Mass/Vol] 10.2 g/dL Low 12.0-15.0 [facility] Comment on above: Performed By: #### L [id number] ####[facility] ([facility])[address] [place] [address] Immature granulocytes (Bld) [#/Vol] 0.02 10*3/uL Normal 0.00-0.20 [facility] Comment on above: Performed By: #### L [id number] ####[facility] ([facility])[address] [place] [address] Immature granulocytes/100 WBC (Bld) 0.4 % Normal 0.0-1.0 [facility] Comment on above: Performed By: #### L [id number] ####[facility] ([facility])[address] [place] [address] Lymphocytes (Bld) [#/Vol] 2.24 10*3/uL Normal 1.20-4.00 [facility] Comment on above: Performed By: #### L [id number] ####[facility] ([facility])[address] [place] [address] Lymphocytes/100 WBC (Bld) 41.0 % Normal 20.0-45.0 [facility] Comment on above: Performed By: #### L [id number] ####[facility] ([facility])[address] [place] [address] MCH (RBC) [Entitic mass] 30.4 pg Normal 27.0-33.0 [facility] Comment on above: Performed By: #### L [id number] ####[facility] ([facility])[address] [place] [address] MCV (RBC) [Entitic vol] 93.8 fL Normal 82.0-98.0 [facility] Comment on above: Performed By: #### L [id number] ####[facility] ([facility])[address] [place] [address] Monocytes (Bld) [#/Vol] 0.48 10*3/uL Normal 0.10-1.00 [facility] Comment on above: Performed By: #### L [id number] ####[facility] ([facility])[address] [place] [address] Monocytes/100 WBC (Bld) 8.8 % Normal 5.0-12.0 [facility] Comment on above: Performed By: #### L [id number] ####[facility] ([facility])[address] [place] [address] Neutrophils (Bld) [#/Vol] 2.48 10*3/uL Normal 1.60-7.60 [facility] Comment on above: Performed By: #### L [id number] ####[facility] [place] [address] Neutrophils/100 WBC (Bld) 45.2 % Normal 40.0-72.0 [facility] Comment on above: Performed By: #### L [id number] ####[facility] ([facility])[address] [place] [address] NRBC (PER 100 WBCS) BY AUTOMATED COUNT 0.0 % Normal 0 [facility] Comment on above: Performed By: #### L [id number] ####[facility] ([facility])[address] [place] [address] PLATELETS (10*3/UL) IN BLOOD AUTOMATED COUNT 271 10*3/uL Normal 150-400 [facility] Comment on above: Performed By: #### L [id number] ####[facility] ([facility])[address] [place] [address] RBC (Bld) [#/Vol] 3.36 10*6/uL Low 3.80-5.00 [facility] Comment on above: Performed By: #### L [id number] ####[facility] ([facility])[address] [place] [address] WBC (Bld) [#/Vol] 5.47 10*3/uL Normal 4.00-10.60 [facility] Comment on above: Performed By: #### L [id number] ####[facility] ([facility])[address] [place] [address] POCT GLUCOSE METER UNSOLICIT ED RESULTSon 10-05-2024 Glucose [Mass/Vol] 115 mg/dL High 70-105 [facility] Comment on above: Order Comment: Waive d Testing in the ED is performed under the ED CLIA certificate #[id number]. Result Comment: [email or web address] Performed By: #### L [id number] #### [facility] ([facility]) [address] [place] [address] Glucose [Mass/Vol] 123 mg/dL High 70-105 [facility] Comment on above: Order Comment: Waive d Testing in the ED is performed under the ED CLIA certificate #[id number]. Result Comment: [email or web address] Performed By: #### L [id number] ####[facility] ([facility])[address] [place] [address] BASIC METABOLIC PANELon 09-22 Anion gap [Moles/Vol] 10 mmol/L Normal 7-20 [facility] Comment on above: Performed By: #### L [id number] #### [facility] ([facility]) [address] [place] [address] Calcium [Mass/Vol] 8.2 mg/dL Low 8.6-10.3 [facility] Comment on above: Performed By: #### L [id number] #### [facility] [address] [place] [address] Chloride [Moles/Vol] 106 mmol/L Normal 98-107 [facility] Comment on above: Performed By: #### L [id number] #### [facility] ([facility]) [address] [place] [address] CO2 [Moles/Vol] 26 mmol/L Normal 21-31 [facility] Comment on above: Performed By: #### L [id number] #### [facility] ([facility]) [address] [place] [address] Creatinine [Mass/Vol] 1.75 mg/dL High 0.60-1.20 [facility] Comment on above: Performed By: #### L [id number] #### [facility] ([facility]) [address] [place] [address] GLOMERULAR FILTRATION RATE ML/MIN/1.73 SQ M.PREDICTED 35.7 mL/min/1.73m*2 Low >60.0 [facility] Comment on above: Result Comment: The [facility]???s estimated glomerular filtration rate (eGFR) will [...] group of individuals. Performed By: #### L [id number] #### [facility] [address] [place] [address] Glucose [Mass/Vol] 134 mg/dL High 70-100 [facility] Comment on above: Performed By: #### L [id number] #### [facility] ([facility]) [address] [place] [address] Potassium [Moles/Vol] 4.0 mmol/L Normal 3.5-5.1 [facility] Comment on above: Performed By: #### L [id number] #### [facility] ([facility]) [address] [place] [address] Sodium [Moles/Vol] 138 mmol/L Normal 136-145 [facility] Comment on above: Performed By: #### L [id number] #### [facility] ([facility]) [address] [place] [address] Urea nitrogen [Mass/Vol] 36 mg/dL High 7-25 [facility] Comment on above: Performed By: #### L [id number] #### [facility] ([facility]) [address] [place] [address] UREA NITROGEN/CREATININE (MASS RATIO) IN SER/PLAS 20.6 Normal [facility] Comment on above: Performed By: #### L [id number] #### [facility] ([facility]) [address] [place] [address] CALCIUM, IONIZEDon CALCIUM IONIZED (MMOL/L) IN BLOOD 1.23 mmol/L Normal 1.15-1.33 [facility] Comment on above: Performed By: #### L [id number] #### [facility] ([facility]) [address] [place] [address] CBC WITH AUTO DIFFERENTIALon 10-04-2024 Basophils (Bld) [#/Vol] 0.04 10*3/uL Normal 0.00-0.20 [facility] Comment on above: Performed By: #### L [id number] #### [facility] ([facility]) [address] [address] Basophils/100 WBC (Bld) 0.6 % Normal 0.0-1.0 [facility] Comment on above: Performed By: #### L [id number] #### [facility] ([facility]) [address] [place] [address] Eosinophils (Bld) [#/Vol] 0.17 10*3/uL Normal 0.00-0.50 [facility] Comment on above: Performed By: #### L [id number] #### [facility] ([facility]) [address] [place] [address] Eosinophils/100 WBC (Bld) 2.7 % Normal 0.0-6.0 [facility] Comment on above: Performed By: #### L [id number] #### [facility] ([facility]) [address] [place] [address] Erythrocyte distribution width (RBC) [Ratio] 13.4 % Normal 11.5-15.0 [facility] Comment on above: Performed By: #### L [id number] #### [facility] ([facility]) [address] [place] [address] ERYTHROCYTE MEAN CORPUSCULAR HEMOGLOBIN CONCENTRATION (G/DL) BY AUTOMATED 31.9 g/dL Low 32.0-35.0 [facility] Comment on above: Performed By: #### L [id number] #### [facility] ([facility]) [address] [place] [address] Hematocrit (Bld) [Volume fraction] 31.3 % Low 36.0-45.0 [facility] Comment on above: Performed By: #### L [id number] #### [facility] ([facility]) [address] [place] [address] Hemoglobin (Bld) [Mass/Vol] 10.0 g/dL Low 12.0-15.0 [facility] Comment on above: Performed By: #### L [id number] #### [facility] ([facility]) [address] [place] [address] Immature granulocytes (Bld) [#/Vol] 0.02 10*3/uL Normal 0.00-0.20 [facility] Comment on above: Performed By: #### L [id number] #### [facility] ([facility]) [address] [place] [address] Immature granulocytes/100 WBC (Bld) 0.3 % Normal 0.0-1.0 [facility] Comment on above: Performed By: #### L [id number] #### [facility] [address] [place] [address] Lymphocytes (Bld) [#/Vol] 1.83 10*3/uL Normal 1.20-4.00 [facility] Comment on above: Performed By: #### L [id number] #### [facility] [address] [address] Lymphocytes/100 WBC (Bld) 29.5 % Normal 20.0-45.0 [facility] Comment on above: Performed By: #### L [id number] #### [facility] ([facility]) [address] [place] [address] MCH (RBC) [Entitic mass] 30.2 pg Normal 27.0-33.0 [facility] Comment on above: Performed By: #### L [id number] #### [facility] ([facility]) [address] [address] MCV (RBC) [Entitic vol] 94.6 fL Normal 82.0-98.0 [facility] Comment on above: Performed By: #### L [id number] #### [facility] ([facility]) [address] [place] [address] Monocytes (Bld) [#/Vol] 0.49 10*3/uL Normal 0.10-1.00 [facility] Comment on above: Performed By: #### L [id number] #### [facility] ([facility]) [address] [place] [address] Monocytes/100 WBC (Bld) 7.9 % Normal 5.0-12.0 [facility] Comment on above: Performed By: #### L [id number] #### [facility] ([facility]) [address] [place] [address] Neutrophils (Bld) [#/Vol] 3.66 10*3/uL Normal 1.60-7.60 [facility] Comment on above: Performed By: #### L [id number] #### [facility] ([facility]) [address] [place] [address] Neutrophils/100 WBC (Bld) 59.0 % Normal 40.0-72.0 [facility] Comment on above: Performed By: #### L [id number] #### [facility] ([facility]) [address] [place] [address] NRBC (PER 100 WBCS) BY AUTOMATED COUNT 0.0 % Normal 0 [facility] Comment on above: Performed By: #### L [id number] #### [facility] ([facility]) [address] [place] [address] PLATELETS (10*3/UL) IN BLOOD AUTOMATED COUNT 242 10*3/uL Normal 150-400 [facility] Comment on above: Performed By: #### L [id number] #### [facility] ([facility]) [address] [place] [address] RBC (Bld) [#/Vol] 3.31 10*6/uL Low 3.80-5.00 [facility] Comment on above: Performed By: #### L [id number] #### [facility] ([facility]) [address] [place] [address] WBC (Bld) [#/Vol] 6.21 10*3/uL Normal 4.00-10.60 [facility] Comment on above: Performed By: #### L [id number] #### [facility] ([facility]) [address] [place] [address] POCT GLUCOSE METER UNSOLICIT ED RESULTSon 10-04-2024 Glucose [Mass/Vol] 237 mg/dL High 70-105 [facility] Comment on above: Order Comment: Waive d Testing in the ED is performed under the ED CLIA certificate #[id number]. Result Comment: [email or web address] Critical Value Noted Performed By: #### L [id number] ####[facility] ([facility])[address] [place] [address] Glucose [Mass/Vol] 213 mg/dL High 70-105 [facility] Comment on above: Order Comment: Waive d Testing in the ED is performed under the ED CLIA certificate #[id number]. Result Comment: [email or web address] Performed By: #### L [id number] #### [facility] ([facility]) [address] [place] [address] Glucose [Mass/Vol] 211 mg/dL High 70-105 [facility] Comment on above: Order Comment: Waive d Testing in the ED is performed under the ED CLIA certificate #[id number]. Result Comment: [email or web address] Performed By: #### L [id number] #### [facility] ([facility]) [address] [place] [address] Glucose [Mass/Vol] 160 mg/dL High 70-105 [facility] Comment on above: Order Comment: Waive d Testing in the ED is performed under the ED CLIA certificate #[id number]. Result Comment: [email or web address] Performed By: #### L [id number] #### [facility] ([facility]) [address] [place] [address] ALBUMINon 10-03-2024 Albumin [Mass/Vol] 2.5 g/dL Low 3.5-5.7 [facility] Comment on above: Performed By: #### L [id number] ####[facility] ([facility])[address] [place] [address] BASIC METABOLIC PANELon 09-22 Anion gap [Moles/Vol] 9 mmol/L Normal 7-20 [facility] Comment on above: Performed By: #### L [id number] ####[facility] ([facility])[address] [place] [address] Calcium [Mass/Vol] 6.6 mg/dL Low 8.6-10.3 [facility] Comment on above: Performed By: #### L [id number] ####[facility] [place] [address] Chloride [Moles/Vol] 110 mmol/L High 98-107 [facility] Comment on above: Performed By: #### L [id number] ####[facility] ([facility])[address] [place] [address] CO2 [Moles/Vol] 23 mmol/L Normal 21-31 [facility] Comment on above: Performed By: #### L [id number] ####[facility] ([facility])[address] [place] [address] Creatinine [Mass/Vol] 1.89 mg/dL High 0.60-1.20 [facility] Comment on above: Performed By: #### L [id number] ####[facility] ([facility])[address] [place] [address] GLOMERULAR FILTRATION RATE ML/MIN/1.73 SQ M.PREDICTED 32.6 mL/min/1.73m*2 Low >60.0 [facility] Comment on above: Result Comment: [facility]???s estimated glomerular filtration rate (eGFR) will [...] of individuals. Performed By: #### L [id number] ####[facility])[address] [place] [address] Glucose [Mass/Vol] 164 mg/dL High 70-100 [facility] Comment on above: Performed By: #### L [id number] ####[facility] ([facility])[address] [place] [address] Potassium [Moles/Vol] 3.7 mmol/L Normal 3.5-5.1 [facility] Comment on above: Performed By: #### L [id number] ####[facility] ([facility])[address] [place] [address] Sodium [Moles/Vol] 138 mmol/L Normal 136-145 [facility] Comment on above: Performed By: #### L [id number] ####[facility])[address] [place] [address] Urea nitrogen [Mass/Vol] 32 mg/dL High 7-25 [facility] Comment on above: Performed By: #### L [id number] ####[facility] ([facility])[address] [place] [address] UREA NITROGEN/CREATININE (MASS RATIO) IN SER/PLAS 16.9 Normal [facility] Comment on above: Performed By: #### L [id number] ####[facility] [place] [address] CBC WITH AUTO DIFFERENTIALon 10-03-2024 Basophils (Bld) [#/Vol] 0.04 10*3/uL Normal 0.00-0.20 [facility] Comment on above: Performed By: #### L [id number] ####[facility] ([facility])[address] [place] [address] Basophils/100 WBC (Bld) 0.5 % Normal 0.0-1.0 [facility] Comment on above: Performed By: #### L [id number] ####[facility] ([facility])[address] [place] [address] Eosinophils (Bld) [#/Vol] 0.09 10*3/uL Normal 0.00-0.50 [facility] Comment on above: Performed By: #### L [id number] ####[facility] ([facility])[address] [place] [address] Eosinophils/100 WBC (Bld) 1.2 % Normal 0.0-6.0 [facility] Comment on above: Performed By: #### L [id number] ####[facility] ([facility])[address] [place] [address] Erythrocyte distribution width (RBC) [Ratio] 13.5 % Normal 11.5-15.0 [facility] Comment on above: Performed By: #### L [id number] ####[facility] ([facility])[address] [place] [address] ERYTHROCYTE MEAN CORPUSCULAR HEMOGLOBIN CONCENTRATION (G/DL) BY AUTOMATED 32.7 g/dL Normal 32.0-35.0 [facility] Comment on above: Performed By: #### L [id number] ####[facility] ([facility])[address] [place] [address] Hematocrit (Bld) [Volume fraction] 26.6 % Low 36.0-45.0 [facility] Comment on above: Performed By: #### L [id number] ####[facility] ([facility])[address] [place] [address] Hemoglobin (Bld) [Mass/Vol] 8.7 g/dL Low 12.0-15.0 [facility] Comment on above: Performed By: #### L [id number] ####[facility] ([facility])[address] [place] [address] Immature granulocytes (Bld) [#/Vol] 0.03 10*3/uL Normal 0.00-0.20 [facility] Comment on above: Performed By: #### L [id number] ####[facility] ([facility])[address] [place] [address] Immature granulocytes/100 WBC (Bld) 0.4 % Normal 0.0-1.0 [facility] Comment on above: Performed By: #### L [id number] ####[facility] [place] [address] Lymphocytes (Bld) [#/Vol] 1.44 10*3/uL Normal 1.20-4.00 [facility] Comment on above: Performed By: #### L [id number] ####[facility] ([facility])[address] [place] [address] Lymphocytes/100 WBC (Bld) 19.6 % Low 20.0-45.0 [facility] Comment on above: Performed By: #### L [id number] ####[facility] ([facility])[address] [place] [address] MCH (RBC) [Entitic mass] 30.4 pg Normal 27.0-33.0 [facility] Comment on above: Performed By: #### L [id number] ####[facility] ([facility])[address] [place] [address] MCV (RBC) [Entitic vol] 93.0 fL Normal 82.0-98.0 [facility] Comment on above: Performed By: #### L [id number] ####[facility] ([facility])[address] [place] [address] Monocytes (Bld) [#/Vol] 0.49 10*3/uL Normal 0.10-1.00 [facility] Comment on above: Performed By: #### L [id number] ####[facility] ([facility])[address] [place] [address] Monocytes/100 WBC (Bld) 6.7 % Normal 5.0-12.0 [facility] Comment on above: Performed By: #### L [id number] ####[facility] ([facility])[address] [place] [address] Neutrophils (Bld) [#/Vol] 5.26 10*3/uL Normal 1.60-7.60 [facility] Comment on above: Performed By: #### L [id number] ####[facility] ([facility])[address] [place] [address] Neutrophils/100 WBC (Bld) 71.6 % Normal 40.0-72.0 [facility] Comment on above: Performed By: #### L [id number] ####[facility] ([facility])[address] [place] [address] NRBC (PER 100 WBCS) BY AUTOMATED COUNT 0.0 % Normal 0 [facility] Comment on above: Performed By: #### L [id number] ####[facility] ([facility])[address] [place] [address] PLATELETS (10*3/UL) IN BLOOD AUTOMATED COUNT 224 10*3/uL Normal 150-400 [facility] Comment on above: Performed By: #### L [id number] ####[facility] ([facility])[address] [place] [address] RBC (Bld) [#/Vol] 2.86 10*6/uL Low 3.80-5.00 [facility] Comment on above: Performed By: #### L [id number] ####[facility] ([facility])[address] [place] [address] WBC (Bld) [#/Vol] 7.35 10*3/uL Normal 4.00-10.60 [facility] Comment on above: Performed By: #### L [id number] ####[facility] ([facility])[address] [place] [address] POCT GLUCOSE METER UNSOLICIT ED RESULTSon 10-03-2024 Glucose [Mass/Vol] 168 mg/dL High 70-105 [facility] Comment on above: Order Comment: Waive d Testing in the ED is performed under the ED CLIA certificate #[id number]. Result Comment: [email or web address] Critical Value Noted Performed By: #### L [id number] #### [facility] ([facility]) [address] [place] [address] Glucose [Mass/Vol] 96 mg/dL Normal 70-105 [facility] Comment on above: Order Comment: Waive d Testing in the ED is performed under the ED CLIA certificate #[id number]. Result Comment: [email or web address] Performed By: #### L [id number] ####[facility] ([facility])[address] [place] [address] Glucose [Mass/Vol] 171 mg/dL High 70-105 [facility] Comment on above: Order Comment: Waive d Testing in the ED is performed under the ED CLIA certificate #[id number]. Result Comment: [email or web address] Performed By: #### L [id number] ####[facility] ([facility])[address] [place] [address] Glucose [Mass/Vol] 105 mg/dL Normal 70-105 [facility] Comment on above: Order Comment: Waive d Testing in the ED is performed under the ED CLIA certificate #[id number]. Result Comment: [email or web address] Performed By: #### L [id number] ####[facility] ([facility])[address] [place] [address] BASIC METABOLIC PANELon 05- Anion gap [Moles/Vol] 13 mmol/L Normal 7-20 [facility] Comment on above: Performed By: #### L [id number] #### [facility] ([facility]) [address] [place] [address] Calcium [Mass/Vol] 7.3 mg/dL Low 8.6-10.3 [facility] Comment on above: Performed By: #### L [id number] #### [facility] ([facility]) [address] [place] [address] Chloride [Moles/Vol] 105 mmol/L Normal 98-107 [facility] Comment on above: Performed By: #### L [id number] #### [facility] ([facility]) [address] [place] [address] CO2 [Moles/Vol] 20 mmol/L Low 21-31 [facility] Comment on above: Performed By: #### L [id number] #### [facility] ([facility]) [address] [place] [address] Creatinine [Mass/Vol] 3.00 mg/dL High 0.60-1.20 [facility] Comment on above: Performed By: #### L [id number] #### [facility] ([facility]) [address] [place] [address] GLOMERULAR FILTRATION RATE ML/MIN/1.73 SQ M.PREDICTED 18.7 mL/min/1.73m*2 Low >60.0 [facility] Comment on above: Result Comment: The [facility]???s estimated glomerular filtration rate (eGFR) will [...] group of individuals. Performed By: #### L [id number] #### [facility] ([facility]) [address] [place] [address] Glucose [Mass/Vol] 239 mg/dL High 70-100 [facility] Comment on above: Performed By: #### L [id number] #### [facility] ([facility]) [address] [place] [address] Potassium [Moles/Vol] 4.2 mmol/L Normal 3.5-5.1 [facility] Comment on above: Performed By: #### L [id number] #### [facility] ([facility]) [address] [place] [address] Sodium [Moles/Vol] 134 mmol/L Low 136-145 [facility] Comment on above: Performed By: #### L [id number] #### [facility] ([facility]) [address] [place] [address] Urea nitrogen [Mass/Vol] 29 mg/dL High 7-25 [facility] Comment on above: Performed By: #### L [id number] #### [facility] ([facility]) [address] [place] [address] UREA NITROGEN/CREATININE (MASS RATIO) IN SER/PLAS 9.7 Normal [facility] Comment on above: Performed By: #### L [id number] #### [facility] ([facility]) [address] [place] [address] CKon 10-02-2024 CREATINE KINASE (U/L) IN SER/PLAS 56.0 U/L Normal 30.0-223.0 [facility] Comment on above: Performed By: #### L [id number] #### [facility] ([facility]) [address] [place] [address] CONSULTon 10-02-2024 CONSULT ----- ----- Attestation signed [...] Faculty, Division of Nephrology, Department of Medicine, [facility]. ----- Nephrology Consult [...] edema, morbid obesity who was taken to [facility] ED as she was noted to [...] were noted to be elevated 180-->166 pg/mL. [facility] Cardiology was consulted from [place] [facility] and she is transferred here for [...] edema. Neurolog (more content not included)... Normal [facility] CREATININE, URINE, RANDOMon 10-02-2024 Creatinine (U) [Mass/Vol] 200.0 mg/dL Normal 26-299 [facility] Comment on above: Performed By: #### L [id number] #### [facility] ([facility]) [address] [place] [address] MAGNESIUMon 10-02-2024 Magnesium [Mass/Vol] 2.2 mg/dL Normal 1.9-2.7 [facility] Comment on above: Performed By: #### L [id number] #### [facility] ([facility]) [address] [place] [address] POCT GLUCOSE METER UNSOLICIT ED RESULTSon 10-02-2024 Glucose [Mass/Vol] 314 mg/dL High 70-105 [facility] Comment on above: Order Comment: Waive d Testing in the ED is performed under the ED CLIA certificate #[id number]. Result Comment: [email or web address] [email or web address] Performed By: #### L [id number] #### [facility] ([facility]) [address] [place] [address] Glucose [Mass/Vol] 413 mg/dL High 70-105 [facility] Comment on above: Order Comment: Waive d Testing in the ED is performed under the ED CLIA certificate #[id number]. Result Comment: [email or web address] Performed By: #### L [id number] #### [facility] ([facility]) [address] [place] [address] Glucose [Mass/Vol] 221 mg/dL High 70-105 [facility] Comment on above: Order Comment: Waive d Testing in the ED is performed under the ED CLIA certificate #[id number]. Result Comment: [email or web address] Performed By: #### L [id number] ####[facility] ([facility])[address] [place] [address] Glucose [Mass/Vol] 225 mg/dL High 70-105 [facility] Comment on above: Order Comment: Waive d Testing in the ED is performed under the ED CLIA certificate #[id number]. Result Comment: [email or web address] Performed By: #### L [id number] ####[facility] ([facility])[address] [place] [address] Glucose [Mass/Vol] 249 mg/dL High 70-105 [facility] Comment on above: Order Comment: Waive d Testing in the ED is performed under the ED CLIA certificate #[id number]. Result Comment: [email or web address] Performed By: #### L [id number] #### [facility] ([facility]) [address] [place] [address] Glucose [Mass/Vol] 213 mg/dL High 70-105 [facility] Comment on above: Order Comment: Waive d Testing in the ED is performed under the ED CLIA certificate #[id number]. Result Comment: mhec [email or web address] Performed By: #### L [id number] #### [facility] ([facility]) [address] [place] [address] PROTEIN, URINE, RANDOMon Protein (U) [Mass/Vol] 61.3 mg/dL Normal [facility] Comment on above: Result Comment: Ther e are no established reference values for random urine specimens. Performed By: #### L [id number] ####[facility] ([facility])[address] [place] [address] SODIUM, URINE, RANDOMon 09-22 Sodium (U) [Moles/Vol] 28 mmol/L Normal [facility] Comment on above: Performed By: #### L [id number] #### [facility] ([facility]) [address] [place] [address] URINALYSIS WITH MICROSCOPICo n 10-02-2024 BILIRUBIN, TOTAL PRESENCE IN URINE Negative Normal Negative [facility] Comment on above: Performed By: #### L [id number] #### [facility] ([facility]) [address] [place] [address] CASTS IN URINE Present Abnormal None Seen [facility] Comment on above: Performed By: #### L [id number] #### [facility] ([facility]) [address] [place] [address] Clarity (U) Clear Normal Clear [facility] Comment on above: Performed By: #### L [id number] #### [facility] ([facility]) [address] [place] [address] Color (U) Yellow Normal Colorless, Yellow, Light-Yello w [facility] Comment on above: Performed By: #### L [id number] #### [facility] ([facility]) [address] [place] [address] Glucose (U) [Mass/Vol] mg/dL Abnormal Normal [facility] Comment on above: Performed By: #### L [id number] #### [facility] ([facility]) [address] [place] [address] HEMOGLOBIN PRESENCE IN URINE Negative Normal Negative [facility] Comment on above: Performed By: #### L [id number] #### [facility] ([facility]) [address] [place] [address] HYALINE CASTS GRADED/LPF IN URINE SEDIMENT BY MICROSCOPY 3-5 Abnormal 0-2 [facility] Comment on above: Performed By: #### L [id number] #### [facility] ([facility]) [address] [place] [address] Ketones Ql (U) Negative Normal Negative [facility] Comment on above: Performed By: #### L [id number] #### [facility] ([facility]) [address] [place] [address] LEUKOCYTE ESTERASE PRESENCE IN URINE BY TEST STRIP Moderate Abnormal Negative [facility] Comment on above: Performed By: #### L [id number] #### [facility] ([facility]) [address] [place] [address] NITRITE PRESENCE IN URINE Negative Normal Negative [facility] Comment on above: Performed By: #### L [id number] #### [facility] ([facility]) [address] [place] [address] pH (U) 5.0 [pH] Normal 5.0-8.0 [facility] Comment on above: Performed By: #### L [id number] #### [facility] ([facility]) [address] [place] [address] Protein (U) [Mass/Vol] 30 mg/dL Abnormal Negative [facility] Comment on above: Performed By: #### L [id number] #### [facility] ([facility]) [address] [place] [address] RBC (#/HPF) IN URINE SEDIMENT 0-2 Normal None Seen, 0-2 [facility] Comment on above: Performed By: #### L [id number] #### [facility] ([facility]) [address] [place] [address] Specific gravity (U) [Rel density] 1.020 Normal 1.010-1.030 [facility] Comment on above: Performed By: #### L [id number] #### [facility] ([facility]) [address] [place] [address] SQUAMOUS EPITHELIAL CELLS (#/LPF) IN URINE SEDIMENT Occasional Normal None Seen, Occasional, Few [facility] Comment on above: Performed By: #### L [id number] #### [facility] ([facility]) [address] [place] [address] UROBILINOGEN (MG/DL) IN URINE Normal Normal Normal [facility] Comment on above: Performed By: #### L [id number] #### [facility] ([facility]) [address] [place] [address] WBC (LEUKOCYTE) (#/HPF) IN URINE SEDIMENT 11-20 Abnormal None Seen, 0-2 [facility] Comment on above: Performed By: #### L [id number] #### [facility] ([facility]) [address] [place] [address] B-TYPE NATRIURETIC PEPTIDEon 10-01-2024 Natriuretic peptide B (Bld) [Mass/Vol] 19 pg/mL Normal 0-100 [facility] Comment on above: Performed By: #### L [id number] ####[facility] ([facility])[address] [place] [address] CBC WITH AUTO DIFFERENTIALon 10-01-2024 Basophils (Bld) [#/Vol] 0.07 10*3/uL Normal 0.00-0.20 [facility] Comment on above: Performed By: #### L [id number] ####[facility] ([facility])[address] [place] [address] Basophils/100 WBC (Bld) 0.9 % Normal 0.0-1.0 [facility] Comment on above: Performed By: #### L [id number] ####[facility] ([facility])[address] [place] [address] Eosinophils (Bld) [#/Vol] 0.12 10*3/uL Normal 0.00-0.50 [facility] Comment on above: Performed By: #### L [id number] ####[facility] [place] [address] Eosinophils/100 WBC (Bld) 1.5 % Normal 0.0-6.0 [facility] Comment on above: Performed By: #### L [id number] ####[facility] ([facility])[address] [place] [address] Erythrocyte distribution width (RBC) [Ratio] 14.1 % Normal 11.5-15.0 [facility] Comment on above: Performed By: #### L [id number] ####[facility] ([facility])[address] [place] [address] ERYTHROCYTE MEAN CORPUSCULAR HEMOGLOBIN CONCENTRATION (G/DL) BY AUTOMATED 33.6 g/dL Normal 32.0-35.0 [facility] Comment on above: Performed By: #### L [id number] ####[facility] ([facility])[address] [place] [address] Hematocrit (Bld) [Volume fraction] 34.8 % Low 36.0-45.0 [facility] Comment on above: Performed By: #### L [id number] ####[facility] ([facility])[address] [place] [address] Hemoglobin (Bld) [Mass/Vol] 11.7 g/dL Low 12.0-15.0 [facility] Comment on above: Performed By: #### L [id number] ####[facility] ([facility])[address] [place] [address] Immature granulocytes (Bld) [#/Vol] 0.04 10*3/uL Normal 0.00-0.20 [facility] Comment on above: Performed By: #### L [id number] ####[facility] ([facility])[address] [place] [address] Immature granulocytes/100 WBC (Bld) 0.5 % Normal 0.0-1.0 [facility] Comment on above: Performed By: #### L [id number] ####[facility] ([facility])[address] [place] [address] Lymphocytes (Bld) [#/Vol] 1.88 10*3/uL Normal 1.20-4.00 [facility] Comment on above: Performed By: #### L [id number] ####[facility] ([facility])[address] [place] [address] Lymphocytes/100 WBC (Bld) 23.2 % Normal 20.0-45.0 [facility] Comment on above: Performed By: #### L [id number] ####[facility] ([facility])[address] [place] [address] MCH (RBC) [Entitic mass] 30.5 pg Normal 27.0-33.0 [facility] Comment on above: Performed By: #### L [id number] ####[facility] ([facility] [place] [address] MCV (RBC) [Entitic vol] 90.9 fL Normal 82.0-98.0 [facility] Comment on above: Performed By: #### L [id number] ####[facility] ([facility])[address] [place] [address] Monocytes (Bld) [#/Vol] 0.57 10*3/uL Normal 0.10-1.00 [facility] Comment on above: Performed By: #### L [id number] ####[facility] ([facility])[address] [place] [address] Monocytes/100 WBC (Bld) 7.0 % Normal 5.0-12.0 [facility] Comment on above: Performed By: #### L [id number] ####[facility] ([facility])[address] [place] [address] Neutrophils (Bld) [#/Vol] 5.41 10*3/uL Normal 1.60-7.60 [facility] Comment on above: Performed By: #### L [id number] ####[facility] ([facility])[address] [place] [address] Neutrophils/100 WBC (Bld) 66.9 % Normal 40.0-72.0 [facility] Comment on above: Performed By: #### L [id number] ####[facility] ([facility])[address] [place] [address] NRBC (PER 100 WBCS) BY AUTOMATED COUNT 0.0 % Normal 0 [facility] Comment on above: Performed By: #### L [id number] ####[facility] ([facility])[address] [place] [address] PLATELETS (10*3/UL) IN BLOOD AUTOMATED COUNT 325 10*3/uL Normal 150-400 [facility] Comment on above: Performed By: #### L [id number] ####[facility] ([facility])[address] [place] [address] RBC (Bld) [#/Vol] 3.83 10*6/uL Normal 3.80-5.00 [facility] Comment on above: Performed By: #### L [id number] ####[facility] ([facility])[address] [place] [address] WBC (Bld) [#/Vol] 8.09 10*3/uL Normal 4.00-10.60 [facility] Comment on above: Performed By: #### L [id number] ####[facility] ([facility])[address] [place] [address] COMPREHENSIVE METABOLIC PANE [place] 10-01-2024 Albumin [Mass/Vol] 3.4 g/dL Low 3.5-5.7 [facility] Comment on above: Performed By: #### L [id number] ####[facility] ([facility])[address] [place] [address] ALP [Catalytic activity/Vol] 104 U/L Normal 34-104 [facility] Comment on above: Performed By: #### L [id number] ####[facility] ([facility] [place] [address] ALT [Catalytic activity/Vol] 11 U/L Normal 7-52 [facility] Comment on above: Performed By: #### L [id number] ####[facility] ([facility])[address] [place] [address] Anion gap [Moles/Vol] 14 mmol/L Normal 7-20 [facility] Comment on above: Performed By: #### L [id number] ####[facility] ([facility])[address] [place] [address] AST [Catalytic activity/Vol] 9 U/L Low 13-39 [facility] Comment on above: Performed By: #### L [id number] ####[facility] ([facility])[address] [place] [address] Bilirubin [Mass/Vol] 0.4 mg/dL Normal 0.3-1.0 [facility] Comment on above: Performed By: #### L [id number] ####[facility] ([facility])[address] [place] [address] Calcium [Mass/Vol] 7.6 mg/dL Low 8.6-10.3 [facility] Comment on above: Performed By: #### L [id number] ####[facility] ([facility])[address] [place] [address] Chloride [Moles/Vol] 99 mmol/L Normal 98-107 [facility] Comment on above: Performed By: #### L [id number] ####[facility] ([facility])[address] [place] [address] CO2 [Moles/Vol] 22 mmol/L Normal 21-31 [facility] Comment on above: Performed By: #### L [id number] ####[facility] [place] [address] Creatinine [Mass/Vol] 1.99 mg/dL High 0.60-1.20 [facility] Comment on above: Performed By: #### L [id number] ####[facility] ([facility])[address] [place] [address] GLOMERULAR FILTRATION RATE ML/MIN/1.73 SQ M.PREDICTED 30.6 mL/min/1.73m*2 Low >60.0 [facility] Comment on above: Result Comment: [facility]???s estimated glomerular filtration rate (eGFR) will [...] of individuals. Performed By: #### L [id number] ####[facility] ([facility])[address] [place] [address] Glucose [Mass/Vol] 531 mg/dL Critically high 70-100 [facility] Comment on above: Performed By: #### L [id number] ####[facility] ([facility])[address] [place] [address] Potassium [Moles/Vol] 4.1 mmol/L Normal 3.5-5.1 [facility] Comment on above: Performed By: #### L [id number] ####[facility] ([facility])[address] [place] [address] Protein [Mass/Vol] 6.1 g/dL Normal 6.0-8.3 [facility] Comment on above: Performed By: #### L [id number] ####[facility] ([place])[address] [place] [address] Sodium [Moles/Vol] 131 mmol/L Low 136-145 [facility] Comment on above: Performed By: #### L [id number] ####[facility] ([facility])[address] [place] [address] Urea nitrogen [Mass/Vol] 26 mg/dL High 7-25 [facility] Comment on above: Performed By: #### L [id number] ####[facility] ([facility])[address] [place] [address] UREA NITROGEN/CREATININE (MASS RATIO) IN SER/PLAS 13.1 Normal [facility] Comment on above: Performed By: #### L [id number] ####[facility] ([facility])[address] [place] [address] CONSULTon 10-01-2024 CONSULT [facility] [employer] Complaint Left foot wound History and Present [...] Anxiety Bipolar 1 disorder (CMS/HCC) Cardiac arrest ([facility]) 2019 Chronic back pain Chronic kidney disease Coronary artery disease Depression Diabetes mellitus (CMS/HCC) Hypertension Insomnia Pacemaker Schizoaffective disorder (CMS/HCC) Seizures (CMS/HCC) Stroke ([facility]) Past Surgical History Past Surgical History: Procedure [...] 40 mg EC (more content not included)... [facility] CONSULT ----- ----- Attestation with edits by Juan C Crabtree MD at 10/01/2024 11:36 PM I personally saw and examined the patient on the same date of service as resident/fellow Dr Ho. I discussed the findings and therapeutic plan with the resident/fellow Dr ho. I agree with the documentation, except for any edits/updates below. Teaching Physician's Revisions: None Juan C Crabtree MD, [facility] ----- Cardiology Consult Note Reason for [...] device was upgraded to ICD later in [facility] but we could not find record of that. She also has seizure disorder. She presented to [facility] as transfer from [facility] where she initially presented after a seizure episode associated with vomiting.patient reports 2 seizures episodes prior to this the last couple days. Patient reports that she has been having frequent seizure episodes and she was going to [place] for further evaluation. Her initial labs were [...] palpitations or legs edema. Upon presentation to [facility], she was afebrile and hemodynamically [...] medical history of Anxiety, Bipolar 1 disorder ([facility]), Cardiac arrest ([facility]) (2019), Chronic back pain, Chronic kidney disease, Coronary artery disease, Depression, Diabetes mellitus ([facility]), Hypertension, Insomnia, Pacemaker, Schizoaffective disorder ([facility]), Seizures ([facility]), and Stroke ([facility]). Surgical History She has a past surgical [...] daily urea (more content not included)... Normal [facility] HEMOGLOBIN A1Con 10-01-2024 Glucose [Mass/Vol] 260 mg/dL [facility] Comment on above: Performed By: #### L [id number] #### [facility] ([facility]) [address] [place] [address] HbA1c (Bld) [Mass fraction] 10.7 % High 4.0-6.0 [facility] Comment on above: Performed By: #### L [id number] #### [facility] ([facility]) [address] [place] [address] HIGH SENSITIVITY TROPONIN Io n 10-01-2024 HS TROPONIN I (NG/L) 72 ng/L Critically high <15 [facility] Comment on above: Performed By: #### L [id number] #### [facility] ([facility]) [address] [place] [address] LACTIC ACID WITH 4 HOUR REFL EXon 10-01-2024 LACTATE (MMOL/L) IN SER/PLAS 3.1 mmol/L Critically high 0.5-2.2 [facility] Comment on above: Result Comment: Prev ious result verified on 10/01/2024 1150 on specimen/case [id number] called with component Lactate blood venous for procedure Lactic acid, venous, whole blood with reflex with value 3.4 mmol/L. Performed By: #### L [id number] #### [facility] [address] [place] [address] LACTATE (MMOL/L) IN SER/PLAS 3.4 mmol/L Critically high 0.5-2.2 [facility] Comment on above: Performed By: #### L [id number] ####[facility] [place] [address] LIPID PANELon 10-01-2024 CHOL/HDL 4.5 mg/dL Normal [facility] Comment on above: Performed By: #### L [id number] ####[facility] ([facility])[address] [place] [address] Cholesterol [Mass/Vol] 219 mg/dL High 120-200 [facility] Comment on above: Performed By: #### L [id number] ####[facility] ([facility])[address] [place] [address] Magnesium [Mass/Vol] 207 mg/dL High <150 [facility] Comment on above: Result Comment: TRIG LYCERIDE REFERENCE RANGE: 20 YEARS AND OLDER CARDIOVASCULAR RISK LESS THAN 150 mg/dL LOW RISK 150 TO 199 mg/dL BORDERLINE RISK 200 mg/dL AND GREATER HIGH RISK Performed By: #### L [id number] ####[facility] HOSPITAL)[address] [place] [address] Magnesium [Mass/Vol] 129 mg/dL Normal 0-160 [facility] Comment on above: Performed By: #### L [id number] ####[facility] (BEAKER)[address] [place] [address] Magnesium [Mass/Vol] 49 mg/dL Normal 23-92 [facility] Comment on above: Performed By: #### L [id number] ####[facility] ([facility])[address] [place] [address] NON HDL CHOL. (LDL+VLDL) 170 Normal [facility] Comment on above: Performed By: #### L [id number] ####[facility] ([facility])[address] [place] [address] TOTAL VLDL-C 41 mg/dL High 0-40 [facility] Comment on above: Performed By: #### L [id number] ####[facility] ([facility])[address] [place] [address] MAGNESIUMon 10-01-2024 Magnesium [Mass/Vol] 1.5 mg/dL Low 1.9-2.7 [facility] Comment on above: Performed By: #### L [id number] ####[facility] ([facility])[address] [place] [address] POCT GLUCOSE METER UNSOLICIT ED RESULTSon 10-01-2024 Glucose [Mass/Vol] 134 mg/dL High 70-105 [facility] Comment on above: Order Comment: Waive d Testing in the ED is performed under the ED CLIA certificate #[id number]. Result Comment: amcn [email or web address] Performed By: #### L [id number] ####[facility] ([facility])[address] [place] [address] Glucose [Mass/Vol] 294 mg/dL High 70-105 [facility] Comment on above: Order Comment: Waive d Testing in the ED is performed under the ED CLIA certificate #[id number]. Result Comment: tsmi di2 Performed By: #### L [id number] #### [facility] ([facility]) [address] [place] [address] Glucose [Mass/Vol] 406 mg/dL High 70-105 [facility] Comment on above: Order Comment: Waive d Testing in the ED is performed under the ED CLIA certificate #[id number]. Result Comment: tsmi di2 Performed By: #### L [id number] #### [facility] ([facility]) [address] [place] [address] TSH3 REFLEX TO FT4on 025 THYROTROPIN (MIU/L) IN SER/PLAS BY DETECTION LIMIT <= 0.05 MIU/L 3.71 mIU/L Normal 0.34-5.60 [facility] Comment on above: Performed By: #### L [id number] #### [facility] ([place]) [address] [place] [address] XR LUMBAR SPINE 2-3 VIEWS (S TANDARD)on 09-23-2024 XR LUMBAR SPINE 2-3 VIEWS (STANDARD) Normal [facility] Comment on above: Order Comment: Stand ing AND AP LateralInjury/Trauma or Illness?:Illness/OtherHow long have you had these symptoms (acute/chronic)?:UnknownReason for exam?:Lumbar painHistory of cancer?:uSurgeries, chemotherapy, or radiation?:pacemakerType of Exam?:UnknownAdditional signs and symptoms?:none BASIC METABOLIC PANELon Anion gap [Moles/Vol] 20 mmol/L Normal 10-20 [facility] Comment on above: Order Comment: [facility] has implemented the eGFR calculation approach that does not have a coefficient for race that conforms to the NKF-ASN Task Force Recommendations. Performed By: #### 4 [id number] ####[facility] [address] [place], [place] [address] Abbi Choudhary M.D. [id number] Calcium [Mass/Vol] 8.9 mg/dL Normal 8.4-10.2 [facility] Comment on above: Order Comment: [facility] has implemented the eGFR calculation approach that does not have a coefficient for race that conforms to the NKF-ASN Task Force Recommendations. Performed By: #### 4 [id number] ####[facility] [address] [place], [place] [address] Abbi Choudhary M.D. [id number] Chloride [Moles/Vol] 97 mmol/L Low 98-108 [facility] Comment on above: Order Comment: [facility] has implemented the eGFR calculation approach that does not have a coefficient for race that conforms to the NKF-ASN Task Force Recommendations. Performed By: #### 4 6124 ####[facility] [address] [place], [place] [address] Abbi Choudhary M.D. [id number] Creatinine [Mass/Vol] 1.71 mg/dL High 0.40-1.10 [facility] Comment on above: Order Comment: [facility] has implemented the eGFR calculation approach that does not have a coefficient for race that conforms to the NKF-ASN Task Force Recommendations. Performed By: #### 4 [id number] ####[facility] [address] [place], [place] [address] Abbi Choudhary M.D. [id number] EGFR 37 mL/min/1.73 m2 Low >=60 [facility] Comment on above: Order Comment: [facility] has implemented the eGFR calculation approach that does not have a coefficient for race that conforms to the NKF-ASN Task Force Recommendations. Result Comment: Lorie mated GFR was calculated using the 2020 CKD-EPI creatinine equation. Performed By: #### 4 [id number] ####[facility] [address] [place], [place] [address]Alisia Choudhary M.D. [id number] Glucose [Mass/Vol] 468 mg/dL Off scale high 65-99 [facility] Comment on above: Order Comment: [facility] has implemented the eGFR calculation approach that does not have a coefficient for race that conforms to the NKF-ASN Task Force Recommendations. Performed By: #### 4 6124 ####[facility] [address] [place], [place] [address] Abbi Choudhary M.D. [id number] HCO3 (Bld) [Moles/Vol] 17 mmol/L Low 21-32 [facility] Comment on above: Order Comment: [facility] [employer] has implemented the eGFR calculation approach that does not have a coefficient for race that conforms to the NKF-ASN Task Force Recommendations. Performed By: #### 4 6124 ####[facility] [address] [place], [place] [address] Abbi Choudhary M.D. [id number] Potassium [Moles/Vol] 4.0 mmol/L Normal 3.5-5.1 [facility] Comment on above: Order Comment: [facility] has implemented the eGFR calculation approach that does not have a coefficient for race that conforms to the NKF-ASN Task Force Recommendations. Performed By: #### 4 6124 ####[facility] [address] [place], [place] [address] Abbi Choudhary M.D. [id number] Sodium [Moles/Vol] 130 mmol/L Low 135-145 [facility] Comment on above: Order Comment: [facility] has implemented the eGFR calculation approach that does not have a coefficient for race that conforms to the NKF-ASN Task Force Recommendations. Performed By: #### 4 6124 ####[facility] [address] [place], [place] [address] Abbi Choudhary M.D. [id number] Urea nitrogen [Mass/Vol] 30 mg/dL High 8-25 [facility] Comment on above: Order Comment: [facility] has implemented the eGFR calculation approach that does not have a coefficient for race that conforms to the NKF-ASN Task Force Recommendations. Performed By: #### 4 6124 ####[facility] [address] [place], [place] [address] Abbi Choudhary M.D. [id number] Urea nitrogen/Creatinine [Mass ratio] 17.5 mg/mg Normal 10.0-20.0 [facility] Comment on above: Order Comment: [facility] has implemented the eGFR calculation approach that does not have a coefficient for race that conforms to the NKF-ASN Task Force Recommendations. Performed By: #### 4 6124 ####[facility] [address] [place], [place] [address] Abbi Choudhary M.D. [id number] CBC WITH AUTO DIFFERENTIALon 09-22-2024 AUTO NRBC 0.0 % Normal [facility] Comment on above: Performed By: #### L [id number] ####[facility] [address] [place], [place] [address] Abbi Choudhary M.D. [id number] AUTO NRBC ABS COUNT 0.00 K/mcL Normal 0.00-0.00 [facility] Comment on above: Performed By: #### L [id number] ####[facility] [address] [place], [place] [address] Abbi Choudhary M.D. [id number] BASOPHILS ABSOLUTE COUNT 0.05 K/mcL Normal 0.00-0.30 [facility] Comment on above: Performed By: #### L [id number] ####[facility] [address] [place] [address] Abbi Choudhary M.D. [id number] Basophils/100 WBC (Bld) 0.6 % Normal [facility] Comment on above: Performed By: #### L [id number] ####[facility] [address] [place] [address] Abbi Choudhary M.D. [id number] Eosinophils (Bld) [#/Vol] 0.08 10*3/uL Normal 0.00-0.50 [facility] Comment on above: Performed By: #### L [id number] ####[facility] [address] [place] [address] Abbi Choudhary M.D. [id number] Eosinophils/100 WBC (Bld) 0.9 % Normal [facility] Comment on above: Performed By: #### L [id number] ####[facility] [address] [place] [address] Abbi Choudhary M.D. [id number] Erythrocyte distribution width (RBC) [Ratio] 13.3 % Normal 11.6-14.8 [facility] Comment on above: Performed By: #### L [id number] ####[facility] [address] [place] [address] Abbi Choudhary M.D. [id number] Hematocrit (Bld) [Volume fraction] 35.3 % Low 36.0-46.0 [facility] Comment on above: Performed By: #### L [id number] ####[facility] [address] [place] [address] Abbi Choudhary M.D. [id number] Hemoglobin (Bld) [Mass/Vol] 12.1 g/dL Normal 12.0-16.0 [facility] Comment on above: Performed By: #### L [id number] ####[facility] [address] [place] [address] Abbi Choudhary M.D. [id number] IG ABSOLUTE 0.04 K/mcL Normal 0.00-0.30 [facility] Comment on above: Performed By: #### L [id number] ####[facility] [address] [place] [address] Abbi Choudhary M.D. [id number] IG PERCENT 0.40 % Normal [facility] Comment on above: Result Comment: The IG parameter is the percentage of metamyelocytes, myelocytes and promyelocytes. An immature granulocyte count (IG) of 1% or more suggests the possibility of infection, an IG count of 3% is very likely related to an infection. Performed By: #### L [id number] ####[facility] [address] [place] [address] Abbi Choudhary M.D. [id number] Lymphocytes (Bld) [#/Vol] 1.49 10*3/uL Normal 0.90-4.00 [facility] Comment on above: Performed By: #### L [id number] ####[facility] [address] [place] [address] Abbi Choudhary M.D. [id number] Lymphocytes/100 WBC (Bld) 16.7 % Normal [facility] Comment on above: Performed By: #### L [id number] ####[facility] [address] [place] [address] Abbi Choudhary M.D. [id number] MCH (RBC) [Entitic mass] 30.5 pg Normal 26.0-34.0 [facility] Comment on above: Performed By: #### L [id number] ####[facility] [address] [place] [address] Abbi Choudhary M.D. [id number] MCV (RBC) [Entitic vol] 88.9 fL Normal 80.0-100.0 [facility] Comment on above: Performed By: #### L [id number] ####[facility] [address] [place] [address] Abbi Choudhary M.D. [id number] MEAN CORPUSCULAR HEMOGLOBIN CONC 34.3 g/dL Normal 31.0-37.0 [facility] Comment on above: Performed By: #### L [id number] ####[facility] [address] [place], [place] [address] Abbi Choudhary M.D. [id number] Monocytes (Bld) [#/Vol] 0.41 10*3/uL Normal 0.30-0.90 [facility] Comment on above: Performed By: #### L [id number] ####[facility] [address] [place] [address] Abbi Choudhary M.D. [id number] Monocytes/100 WBC (Bld) 4.6 % Normal [facility] Comment on above: Performed By: #### L [id number] ####[facility] [address] [place] [address] Abbi Choudhary M.D. [id number] NEUTROPHILS ABSOLUTE COUNT 6.83 K/mcL Normal 1.70-7.00 [facility] Comment on above: Performed By: #### L [id number] ####[facility] [address] [place] [address] Abbi Choudhary M.D. [id number] Neutrophils/100 WBC (Bld) 76.8 % Normal [facility] Comment on above: Performed By: #### L [id number] ####[facility] [address] [place] [address] Abbi Choudhary M.D. [id number] Platelet mean volume (Bld) [Entitic vol] 9.7 fL Normal 9.4-12.4 [facility] Comment on above: Performed By: #### L [id number] ####[facility] [address] [place] [address] bAbi Choudhary M.D. [id number] Platelets (Bld) [#/Vol] 283 10*3/uL Normal 150-400 [facility] Comment on above: Performed By: #### L [id number] ####[facility] [address] [place] [address] Abbi Choudhary M.D. [id number] RBC (Bld) [#/Vol] 3.97 10*6/uL Low 4.00-5.20 [facility] Comment on above: Performed By: #### L [id number] ####[facility] [address] [place] [address] Abbi Choudhary M.D. [id number] WBC (Bld) [#/Vol] 8.90 10*3/uL Normal 4.50-11.00 [facility] Comment on above: Performed By: #### L [id number] ####[facility] [address] [place] [address] Abbi Choudhary M.D. [id number] DRUGS OF ABUSE SCREEN, URINE on 09-22-2024 AMPHETAMINE SCREEN, URINE Not detected Normal None Detected [facility] Comment on above: Order Comment: Scree n results should be used for treatment purposes only. Result Comment: Urin e Amphetamine Cutoff: < 1000 ng/mL = None Detected Performed By: #### 4 6965 ####[facility] [address] [place] [address] Abbi Choudhary M.D. [id number] BARBITURATE SCREEN URINE Not detected Normal None Detected [facility] Comment on above: Order Comment: Scree n results should be used for treatment purposes only. Result Comment: Urin e Barbiturates Cutoff: < 200 ng/mL = None Detected Performed By: #### 4 6965 ####[facility] [address] [place] [address] Abbi Choudhary M.D. [id number] BENZODIAZEPINE SCREEN, URINE Not detected Normal None Detected [facility] Comment on above: Order Comment: Scree n results should be used for treatment purposes only. Result Comment: Urin e Benzodiazepine Cutoff: < 200 ng/mL = None Detected Performed By: #### 4 6965 ####[facility] [address] [place] [address] Abbi Choudhary M.D. [id number] BUPRENORPHINE, URINE Not detected Normal None Detected [facility] Comment on above: Order Comment: Scree n results should be used for treatment purposes only. Result Comment: Urin e Buprenorphine Cutoff: < 5 ng/mL = None Detected Performed By: #### 4 6965 ####[facility] [address] [place] [address] Abbi Choudhary M.D. [id number] CANNABINOID SCREEN URINE Not detected Normal None Detected [facility] Comment on above: Order Comment: Scree n results should be used for treatment purposes only. Result Comment: Urin e Cannabinoids Cutoff: < 50 ng/mL = None Detected Performed By: #### 4 6965 ####[facility] [address] [place] [address] Abbi Choudhary M.D. [id number] COCAINE, SCREEN URINE Not detected Normal None Detected [facility] Comment on above: Order Comment: Scree n results should be used for treatment purposes only. Result Comment: Urin e Cocaine Cutoff: < 300 ng/mL = None Detected Performed By: #### 4 6965 ####[facility] [address] [place] [address] Abbi Choudhary M.D. [id number] FENTANYL, URINE Not detected Normal None Detected [facility] Comment on above: Order Comment: Scree n results should be used for treatment purposes only. Result Comment: Urin e Fentanyl Cutoff: < 1 ng/mL = None Detected Performed By: #### 4 6965 ####[facility] [address] [place] [address] Abbi Choudhary M.D. [id number] METHADONE SCREEN, URINE Not detected Normal None Detected [facility] Comment on above: Order Comment: Scree n results should be used for treatment purposes only. Result Comment: Urin e Methadone Cutoff: < 300 ng/mL = None Detected Performed By: #### 4 6965 ####[facility] [address] [place] [address] Abbi Choudhary M.D. [id number] OPIATE SCREEN URINE Not detected Normal None Detected [facility] Comment on above: Order Comment: Scree n results should be used for treatment purposes only. Result Comment: Urin e Opiates Cutoff: < 300 ng/mL = None Detected Performed By: #### 4 6965 ####[facility] [address] [place] [address] Abbi Choudhary M.D. [id number] OXYCODONE SCREEN, URINE Not detected Normal None Detected [facility] Comment on above: Order Comment: Scree n results should be used for treatment purposes only. Result Comment: Urin e Oxycodone Cutoff: < 100 ng/mL = None Detected Performed By: #### 4 6965 ####[facility] [address] [place], [place] [address] Abbi Choudhary M.D. [id number] ED Prov Noteon 09-22-2024 ED Prov Note Normal [facility] HEPATIC FUNCTION PANELon Albumin [Mass/Vol] 3.5 g/dL Normal 3.2-5.2 [facility] Comment on above: Performed By: #### 4 5866 ####[facility] [address] [place], [place] [address] Abbi Choudhary M.D. [id number] ALP [Catalytic activity/Vol] 107 U/L Normal 40-150 [facility] Comment on above: Performed By: #### 4 5866 ####[facility] [address] [place], [place] [address] Abbi Choudhary M.D. [id number] ALT [Catalytic activity/Vol] 11 U/L Normal 0-35 U/L [facility] Comment on above: Performed By: #### 4 5866 ####[facility] [address] [place], [place] [address] Abbi Choudhary M.D. [id number] AST [Catalytic activity/Vol] 12 U/L Normal 0-35 U/L [facility] Comment on above: Performed By: #### 4 5866 ####[facility] [address] [place], [place] [address] Abbi Choudhary M.D. [id number] Bilirubin [Mass/Vol] 0.3 mg/dL Normal 0.0-1.3 [facility] Comment on above: Performed By: #### 4 5866 ####[facility] [address] [place], [place] [address] Abbi Choudhary M.D. [id number] Bilirubin.indirect [Mass/Vol] 0.2 mg/dL Normal 0.0-0.4 [facility] Comment on above: Performed By: #### 4 5866 ####[facility] [address] [place], [place] [address] Abbi Choudhary M.D. [id number] Protein [Mass/Vol] 6.5 g/dL Normal 6.0-8.0 [facility] Comment on above: Performed By: #### 4 5866 ####[facility] [address] [place], [place] [address] Abbi Choudhary M.D. [id number] LEVETIRACETAM LEVELon 2024 LEVETIRACETAM < Low 6.0-46.0 [facility] Comment on above: Performed By: #### 4 7512 ####[facility] [address] [place], [place] [address] Swapnil Brewer M.D. [id number] MORPHOLOGYon 09-22-2024 PLATELET ESTIMATE Normal Normal Normal [facility] Comment on above: Performed By: #### L [id number] ####[facility] [address] [place], [place] [address] Abbi Choudhary M.D. [id number] RBC MORPH SCAN Normal Normal [facility] Comment on above: Result Comment: RBC Indices confirmed with manual peripheral smear review. Performed By: #### L [id number] ####[facility] [address] [place], [place] [address] Abbi Choudhary M.D. [id number] URINALYSISon 09-22-2024 BACTERIA, URINE Few Abnormal None Seen [facility] Comment on above: Order Comment: Micro scopic examination is performed on all urinalysis samples and only positive findings are reported. The test for blood on the chemical analytic portion of urinalysis may also be positive due to hemoglobinuria and myoglobinuria and if red blood cells are present they are quantified by microscopic examination. Performed By: #### 4 6625 ####[facility] [address] [place] [address] Abbi Choudhary M.D. [id number] BILIRUBIN, URINE Negative Normal Negative [facility] Comment on above: Order Comment: Micro scopic examination is performed on all urinalysis samples and only positive findings are reported. The test for blood on the chemical analytic portion of urinalysis may also be positive due to hemoglobinuria and myoglobinuria and if red blood cells are present they are quantified by microscopic examination. Performed By: #### 4 6625 ####[facility] [address] [place], [place] [address] Abbi Choudhary M.D. [id number] BLOOD, URINE Small Abnormal Negative [facility] Comment on above: Order Comment: Micro scopic examination is performed on all urinalysis samples and only positive findings are reported. The test for blood on the chemical analytic portion of urinalysis may also be positive due to hemoglobinuria and myoglobinuria and if red blood cells are present they are quantified by microscopic examination. Performed By: #### 4 6625 ####[facility] [address] [place], [place] [address] Abbi Choudhary M.D. [id number] Clarity (U) Hazy Abnormal Clear [facility] Comment on above: Order Comment: Micro scopic examination is performed on all urinalysis samples and only positive findings are reported. The test for blood on the chemical analytic portion of urinalysis may also be positive due to hemoglobinuria and myoglobinuria and if red blood cells are present they are quantified by microscopic examination. Performed By: #### 4 6625 ####[facility] [address] [place], [place] [address] Abbi Choudhary M.D. [id number] Color (U) Yellow Normal Colorless, Yellow [facility] Comment on above: Order Comment: Micro scopic examination is performed on all urinalysis samples and only positive findings are reported. The test for blood on the chemical analytic portion of urinalysis may also be positive due to hemoglobinuria and myoglobinuria and if red blood cells are present they are quantified by microscopic examination. Performed By: #### 4 6625 ####[facility] [address] [place], [place] [address] Abbi Choudhary M.D. [id number] Glucose Ql (U) >=500 Abnormal Negative [facility] Comment on above: Order Comment: Micro scopic examination is performed on all urinalysis samples and only positive findings are reported. The test for blood on the chemical analytic portion of urinalysis may also be positive due to hemoglobinuria and myoglobinuria and if red blood cells are present they are quantified by microscopic examination. Performed By: #### 4 6625 ####[facility] [address] [place], [place] [address] Abbi Choudhary M.D. [id number] Hyaline casts LM Ql (Urine sed) 0-2 Normal 0-2 [facility] Comment on above: Order Comment: Micro scopic examination is performed on all urinalysis samples and only positive findings are reported. The test for blood on the chemical analytic portion of urinalysis may also be positive due to hemoglobinuria and myoglobinuria and if red blood cells are present they are quantified by microscopic examination. Performed By: #### 4 6625 ####[facility] [address] [place], [place] [address] Abbi Choudhary M.D. [id number] Ketones Ql (U) Negative Normal Negative [facility] Comment on above: Order Comment: Micro scopic examination is performed on all urinalysis samples and only positive findings are reported. The test for blood on the chemical analytic portion of urinalysis may also be positive due to hemoglobinuria and myoglobinuria and if red blood cells are present they are quantified by microscopic examination. Performed By: #### 4 6625 ####[facility] [address] [place], [place] [address] Abbi Choudhary M.D. [id number] Leukocyte esterase Test strip Ql (U) Negative Normal Negative [facility] Comment on above: Order Comment: Micro scopic examination is performed on all urinalysis samples and only positive findings are reported. The test for blood on the chemical analytic portion of urinalysis may also be positive due to hemoglobinuria and myoglobinuria and if red blood cells are present they are quantified by microscopic examination. Performed By: #### 4 6625 ####[facility] [address] [place], [place] [address] Abbi Choudhary M.D. [id number] NITRITE, URINE Negative Normal Negative [facility] Comment on above: Order Comment: Micro scopic examination is performed on all urinalysis samples and only positive findings are reported. The test for blood on the chemical analytic portion of urinalysis may also be positive due to hemoglobinuria and myoglobinuria and if red blood cells are present they are quantified by microscopic examination. Performed By: #### 4 6625 ####[facility] [address] [place], [place] [address] Abbi Choudhary M.D. [id number] pH (U) 5.0 [pH] Normal 5.0-7.0 [facility] Comment on above: Order Comment: Micro scopic examination is performed on all urinalysis samples and only positive findings are reported. The test for blood on the chemical analytic portion of urinalysis may also be positive due to hemoglobinuria and myoglobinuria and if red blood cells are present they are quantified by microscopic examination. Performed By: #### 4 6625 ####[facility] [address] [place], [place] [address] Abbi Choudhary M.D. [id number] Protein (U) [Mass/Vol] 100 mg/dL Abnormal Negative [facility] Comment on above: Order Comment: Micro scopic examination is performed on all urinalysis samples and only positive findings are reported. The test for blood on the chemical analytic portion of urinalysis may also be positive due to hemoglobinuria and myoglobinuria and if red blood cells are present they are quantified by microscopic examination. Performed By: #### 4 6625 ####[facility] [address] [place], [place] [address] Abbi Choudhary M.D. [id number] RBC LM.HPF (Urine sed) [#/Area] 1 /[HPF] Normal 0-3 [facility] Comment on above: Order Comment: Micro scopic examination is performed on all urinalysis samples and only positive findings are reported. The test for blood on the chemical analytic portion of urinalysis may also be positive due to hemoglobinuria and myoglobinuria and if red blood cells are present they are quantified by microscopic examination. Performed By: #### 4 6625 ####[facility] [address] [place], [place] [address] Abbi Choudhary M.D. [id number] Specific gravity (U) [Rel density] 1.017 Normal 1.005-1.025 [facility] Comment on above: Order Comment: Micro scopic examination is performed on all urinalysis samples and only positive findings are reported. The test for blood on the chemical analytic portion of urinalysis may also be positive due to hemoglobinuria and myoglobinuria and if red blood cells are present they are quantified by microscopic examination. Performed By: #### 4 6625 ####[facility] [address] [place], [place] [address] Abbi Choudhary M.D. [id number] SQUAMOUS EPITHELIAL 1 /hpf Normal 0-4 [facility] Comment on above: Order Comment: Micro scopic examination is performed on all urinalysis samples and only positive findings are reported. The test for blood on the chemical analytic portion of urinalysis may also be positive due to hemoglobinuria and myoglobinuria and if red blood cells are present they are quantified by microscopic examination. Performed By: #### 4 6625 ####[facility] [address] [place] [address] Abbi Choudhary M.D. [id number] UROBILINOGEN, URINE <2.0 Normal <2.0 [facility] Comment on above: Order Comment: Micro scopic examination is performed on all urinalysis samples and only positive findings are reported. The test for blood on the chemical analytic portion of urinalysis may also be positive due to hemoglobinuria and myoglobinuria and if red blood cells are present they are quantified by microscopic examination. Performed By: #### 4 6625 ####[facility] [address] [place], [place] [address] Abbi Choudhary M.D. [id number] WBC LM.HPF (Urine sed) [#/Area] 6 /[HPF] High 0-5 [facility] Comment on above: Order Comment: Micro scopic examination is performed on all urinalysis samples and only positive findings are reported. The test for blood on the chemical analytic portion of urinalysis may also be positive due to hemoglobinuria and myoglobinuria and if red blood cells are present they are quantified by microscopic examination. Performed By: #### 4 6625 ####[facility] [address] [place], [place] [address] Abbi Choudhary M.D. [id number] BASIC METABOLIC PANELon - Anion gap [Moles/Vol] 15 mmol/L Normal 10-20 [facility] Comment on above: Order Comment: [facility] has implemented the eGFR calculation approach that does not have a coefficient for race that conforms to the NKF-ASN Task Force Recommendations. Performed By: #### 4 6124 ####[facility] [address] [place], [place] [address] Abbi Choudhary M.D. [id number] Calcium [Mass/Vol] 9.4 mg/dL Normal 8.4-10.2 [facility] Comment on above: Order Comment: [facility] has implemented the eGFR calculation approach that does not have a coefficient for race that conforms to the NKF-ASN Task Force Recommendations. Performed By: #### 4 6124 ####[facility] [address] [place], [place] [address] Abbi Choudhary M.D. [id number] Chloride [Moles/Vol] 102 mmol/L Normal 98-108 [facility] Comment on above: Order Comment: [facility] has implemented the eGFR calculation approach that does not have a coefficient for race that conforms to the NKF-ASN Task Force Recommendations. Performed By: #### 4 6124 ####[facility] [address] [place], [place] [address] Abbi Choudhary M.D. [id number] Creatinine [Mass/Vol] 1.75 mg/dL High 0.40-1.10 [facility] Comment on above: Order Comment: [facility] has implemented the eGFR calculation approach that does not have a coefficient for race that conforms to the NKF-ASN Task Force Recommendations. Performed By: #### 4 6124 ####[facility] [address] [place], [place] [address]Alisia Choudhary M.D. [id number] EGFR 36 mL/min/1.73 m2 Low >=60 [facility] Comment on above: Order Comment: [facility] has implemented the eGFR calculation approach that does not have a coefficient for race that conforms to the NKF-ASN Task Force Recommendations. Result Comment: Lorie mated GFR was calculated using the 2020 CKD-EPI creatinine equation. Performed By: #### 4 6124 ####[facility] [address] [place], [place] [address]Alisia Choudhary M.D. [id number] Glucose [Mass/Vol] 237 mg/dL High 65-99 [facility] Comment on above: Order Comment: [facility] has implemented the eGFR calculation approach that does not have a coefficient for race that conforms to the NKF-ASN Task Force Recommendations. Performed By: #### 4 6124 ####[facility] [address] [place], [place] [address] Abbi Choudhary M.D. [id number] HCO3 (Bld) [Moles/Vol] 23 mmol/L Normal 21-32 [facility] Comment on above: Order Comment: [facility] has implemented the eGFR calculation approach that does not have a coefficient for race that conforms to the NKF-ASN Task Force Recommendations. Performed By: #### 4 6124 ####[facility] [address] [place] [address] Abbi Choudhary M.D. [id number] Potassium [Moles/Vol] 3.7 mmol/L Normal 3.5-5.1 [facility] Comment on above: Order Comment: [facility] has implemented the eGFR calculation approach that does not have a coefficient for race that conforms to the NKF-ASN Task Force Recommendations. Performed By: #### 4 6124 ####[facility] [address] [place], [place] [address] Abbi Choudhary M.D. [id number] Sodium [Moles/Vol] 136 mmol/L Normal 135-145 [facility] Comment on above: Order Comment: [facility] has implemented the eGFR calculation approach that does not have a coefficient for race that conforms to the NKF-ASN Task Force Recommendations. Performed By: #### 4 6124 ####[facility] [address] [place], [place] [address] Abbi Choudhary M.D. [id number] Urea nitrogen [Mass/Vol] 26 mg/dL High 8-25 [facility] Comment on above: Order Comment: [facility] has implemented the eGFR calculation approach that does not have a coefficient for race that conforms to the NKF-ASN Task Force Recommendations. Performed By: #### 4 6124 ####[facility] [address] [place], [place] [address] Abbi Choudhary M.D. [id number] Urea nitrogen/Creatinine [Mass ratio] 14.9 mg/mg Normal 10.0-20.0 [facility] Comment on above: Order Comment: [facility] has implemented the eGFR calculation approach that does not have a coefficient for race that conforms to the NKF-ASN Task Force Recommendations. Performed By: #### 4 6124 ####[facility] [address] [place] [address] Abbi Choudhary M.D. [id number] CBC WITH AUTO DIFFERENTIALon 09-18-2024 AUTO NRBC 0.0 % [facility] Comment on above: Performed By: #### L [id number] ####[facility] [address] [place] [address] Abbi Choudhary M.D. [id number] AUTO NRBC ABS COUNT 0.00 K/mcL Normal 0.00-0.00 [facility] Comment on above: Performed By: #### L [id number] ####[facility] [address] [place] [address] Abbi Choudhary M.D. [id number] BASOPHILS ABSOLUTE COUNT 0.05 K/mcL Normal 0.00-0.30 [facility] Comment on above: Performed By: #### L [id number] ####[facility] [address] [place] [address] Abbi Choudhary M.D. [id number] Basophils/100 WBC (Bld) 0.5 % Normal [facility] Comment on above: Performed By: #### L [id number] ####[facility] [address] [place] [address] Abbi Choudhary M.D. [id number] Eosinophils (Bld) [#/Vol] 0.19 10*3/uL Normal 0.00-0.50 [facility] Comment on above: Performed By: #### L [id number] ####[facility] [address] [place] [address] Abbi Choudhary M.D. [id number] Eosinophils/100 WBC (Bld) 2.1 % Normal [facility] Comment on above: Performed By: #### L [id number] ####[facility] [address] [place] [address] Abbi Choudhary M.D. [id number] Erythrocyte distribution width (RBC) [Ratio] 12.6 % Normal 11.6-14.8 [facility] Comment on above: Performed By: #### L [id number] ####[facility] [address] [place] [address] Abbi Choudhary M.D. [id number] Hematocrit (Bld) [Volume fraction] 33.5 % Low 36.0-46.0 [facility] Comment on above: Performed By: #### L [id number] ####[facility] [address] [place] [address] Abbi Choudhary M.D. [id number] Hemoglobin (Bld) [Mass/Vol] 11.6 g/dL Low 12.0-16.0 [facility] Comment on above: Performed By: #### L [id number] ####[facility] [address] [place] [address] Abbi Choudhary M.D. [id number] IG ABSOLUTE 0.07 K/mcL Normal 0.00-0.30 [facility] Comment on above: Performed By: #### L [id number] ####[facility] [address] [place] [address] Abbi Choudhary M.D. [id number] IG PERCENT 0.80 % Normal [facility] Comment on above: Result Comment: The IG parameter is the percentage of metamyelocytes, myelocytes and promyelocytes. An immature granulocyte count (IG) of 1% or more suggests the possibility of infection, an IG count of 3% is very likely related to an infection. Performed By: #### L [id number] ####[facility] [address] [place] [address] Abbi Choudhary M.D. [id number] Lymphocytes (Bld) [#/Vol] 2.26 10*3/uL Normal 0.90-4.00 [facility] Comment on above: Performed By: #### L [id number] ####[facility] [address] [place], [place] [address]Alisia Choudhary M.D. [id number] Lymphocytes/100 WBC (Bld) 24.4 % Normal [facility] Comment on above: Performed By: #### L [id number] ####[facility] [address] [place] [address] Abbi Choudhary M.D. [id number] MCH (RBC) [Entitic mass] 30.4 pg Normal 26.0-34.0 [facility] Comment on above: Performed By: #### L [id number] ####[facility] [address] [place] [address] Abbi Choudhary M.D. [id number] MCV (RBC) [Entitic vol] 87.7 fL Normal 80.0-100.0 [facility] Comment on above: Performed By: #### L [id number] ####[facility] [address] [place] [address] Abbi Choudhary M.D. [id number] MEAN CORPUSCULAR HEMOGLOBIN CONC 34.6 g/dL Normal 31.0-37.0 [facility] Comment on above: Performed By: #### L [id number] ####[facility] [address] [place] [address] Abbi Choudhary M.D. [id number] Monocytes (Bld) [#/Vol] 0.54 10*3/uL Normal 0.30-0.90 [facility] Comment on above: Performed By: #### L [id number] ####[facility] [address] [place] [address] Abbi Choudhary M.D. [id number] Monocytes/100 WBC (Bld) 5.8 % Normal [facility] Comment on above: Performed By: #### L [id number] ####[facility] [address] [place] [address] Abbi Choudhary M.D. [id number] NEUTROPHILS ABSOLUTE COUNT 6.15 K/mcL Normal 1.70-7.00 [facility] Comment on above: Performed By: #### L [id number] ####[facility] [address] [place], [place] [address] Abbi Choudhary M.D. [id number] Neutrophils/100 WBC (Bld) 66.4 % Normal [facility] Comment on above: Performed By: #### L [id number] ####[facility] [address] [place], [place] [address]Alisia Choudhary M.D. [id number] Platelet mean volume (Bld) [Entitic vol] 9.2 fL Low 9.4-12.4 [facility] Comment on above: Performed By: #### L [id number] ####[facility] [address] [place], [place] [address] Abbi Choudhary M.D. [id number] Platelets (Bld) [#/Vol] 290 10*3/uL Normal 150-400 [facility] Comment on above: Performed By: #### L [id number] ####[facility] [address] [place], [place] [address]Alisia Choudhary M.D. [id number] RBC (Bld) [#/Vol] 3.82 10*6/uL Low 4.00-5.20 [facility] Comment on above: Performed By: #### L [id number] ####[facility] [address] [place], [place] [address] Abbi Choudhary M.D. [id number] WBC (Bld) [#/Vol] 9.26 10*3/uL Normal 4.50-11.00 [facility] Comment on above: Performed By: #### L [id number] ####[facility] [address] [place], [place] [address] Abbi Choudhary M.D. [id number] ED Prov Noteon 09-18-2024 ED Prov Note Normal [facility] TROPONIN X 2 (NOW AND REPEAT IN 2 HOURS)on 09-18-2024 BASELINE TROPONIN T NG/L 24 ng/L Off scale high <=14 [facility] Comment on above: Performed By: #### 4 6608 ####[facility] [address] [place], [place] [address] Abbi Choudhary M.D. [id number] TROPONIN T INTERPRETATION Possible acute cardiac injury. Normal [facility] Comment on above: Performed By: #### 4 6608 ####[facility] [address] [place] [id number] Abbi Choudhary M.D. [id number] XR ANKLE LEFT 3+ VIEWS (LARISA DARD)on 09-18-2024 XR ANKLE LEFT 3+ VIEWS (STANDARD) Normal [facility] Comment on above: Order Comment: Injur y/Trauma or Illness?:Injury/TraumaHow long have you had these symptoms (acute/chronic)?:AcuteReason for exam?:ankle painHistory of cancer?:uSurgeries, chemotherapy, or radiation?:pacemakerType of Exam?:InitialMechanism of injury?:fall XR CHEST PA/APon 09-18-2024 XR CHEST PA/AP [facility] Comment on above: Order Comment: Injur y/Trauma or Illness?:Illness/OtherHow long have you had these symptoms (acute/chronic)?:AcuteReason for exam?:chest painHistory of cancer?:uSurgeries, chemotherapy, or radiation?:pacemakerType of Exam?:InitialAdditional signs and symptoms?:na XR KNEE LEFT 2 VIEWS ([address])on 09-18-2024 XR KNEE LEFT 2 VIEWS (STANDARD) [facility] Comment on above: Order Comment: Injur y/Trauma or Illness?:Injury/TraumaHow long have you had these symptoms (acute/chronic)?:AcuteReason for exam?:knee painHistory of cancer?:uSurgeries, chemotherapy, or radiation?:pacemakerType of Exam?:InitialMechanism of injury?:fall [facility] 0 08-29-2024 [place] [address] - [address] MARILYN,ADDIE Montes 1975 (49 F) [id number] Verena Kuhn [facility] URG Report #: [id number] (Signed) PCP: No Doctor Urgent Care Clinic [...] coming to . 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 Normal [facility] CBC (INCLUDES DIFF/PLT)on Basophils (Bld) [#/Vol] 0.093 10*3/uL Normal 0-200 [facility] Comment on above: Performed By: #### 9 1431, 54792, 866, 899, 496, 6399, 13450 #### [facility] [address], [address] [place] [address] Acrobatic Rigger: Dean Maddox MD Basophils/100 WBC (Bld) 0.8 % Normal [facility] Comment on above: Performed By: #### 9 1431, 58629, 866, 899, 496, 6399, 85351 #### [facility] [address], [address] [place] [address] Acrobatic Rigger: Dean Maddox MD Eosinophils (Bld) [#/Vol] 0.22 10*3/uL Normal 15-500 [facility] Comment on above: Performed By: #### 9 1431, 90810, 866, 899, 496, 6399, 93778 #### [facility] [address], [address] [place] [address] Acrobatic Rigger: Dean Maddox MD Eosinophils/100 WBC (Bld) 1.9 % Normal [facility] Comment on above: Performed By: #### 9 1431, 92950, 866, 899, 496, 6399, 89459 #### [facility] [place] [address] Acrobatic Rigger: Dean Maddox MD Erythrocyte distribution width (RBC) [Ratio] 12.8 % Normal 11.0-15.0 [facility] Comment on above: Performed By: #### 9 1431, 03007, 866, 899, 496, 6399, 49040 #### [facility] of [place] [address] Acrobatic Rigger: Dean Maddox MD Hematocrit (Bld) [Volume fraction] 41.1 % Normal 35.0-45.0 [facility] Comment on above: Performed By: #### 9 1431, 13300, 866, 899, 496, 6399, 56618 #### [facility] of [place] [address] Acrobatic Rigger: Dean Maddox MD Hemoglobin (Bld) [Mass/Vol] 13.8 g/dL Normal 11.7-15.5 [facility] Comment on above: Performed By: #### 9 1431, 44057, 866, 899, 496, 6399, 98335 #### [facility] of [place] [address] Acrobatic Rigger: Dean Maddox MD Lymphocytes (Bld) [#/Vol] 2.401 10*3/uL Normal 850-3900 [facility] Comment on above: Performed By: #### 9 1431, 52724, 866, 899, 496, 6399, 08559 #### [facility] of [place] [address] Acrobatic Rigger: Dean Maddox MD Lymphocytes/100 WBC (Bld) 20.7 % Normal [facility] Comment on above: Performed By: #### 9 1431, 27392, 866, 899, 496, 6399, 34184 #### [facility] of [place] [address] Acrobatic Rigger: Dean Maddox MD MCH (RBC) [Entitic mass] 30.1 pg Normal 27.0-33.0 [facility] Comment on above: Performed By: #### 9 1431, 60395, 866, 899, 496, 6399, 09870 #### [facility] of [address] [place] [address] Acrobatic Rigger: Dean Maddox MD MCHC (RBC) [Mass/Vol] 33.6 [...] clinical condition. Performed By: #### 9 1431, 61584, 866, 899, 496, 6399, 93060 #### [facility] [place] [address] Acrobatic Rigger: Dean Maddox MD MCV (RBC) [Entitic vol] 89.7 fL Normal 80.0-100.0 [facility] Comment on above: Performed By: #### 9 1431, 27942, 866, 899, 496, 6399, 51777 #### [facility] [place] [address] Acrobatic Rigger: Dean Maddox MD Monocytes (Bld) [#/Vol] 0.661 10*3/uL Normal 200-950 [facility] Comment on above: Performed By: #### 9 1431, 24043, 866, 899, 496, 6399, 85397 #### [facility] [place] [address] Acrobatic Rigger: Dean Maddox MD Monocytes/100 WBC (Bld) 5.7 % Normal [facility] Comment on above: Performed By: #### 9 1431, 30072, 866, 899, 496, 6399, 25513 #### [facility] of [place] [address] Acrobatic Rigger: Dean Maddox MD Neutrophils (Bld) [#/Vol] 8.224 10*3/uL High 8534-9447 [facility] Comment on above: Performed By: #### 9 1431, 23707, 866, 899, 496, 6399, 58933 #### [facility] of [address], [address] [place] [address] Acrobatic Rigger: Dean Maddox MD Neutrophils/100 WBC (Bld) 70.9 % Normal [facility] Comment on above: Performed By: #### 9 1431, 94757, 866, 899, 496, 6399, 44854 #### [facility] of [address], [address] [place] [address] Acrobatic Rigger: Dean Maddox MD Platelet mean volume (Bld) [Entitic vol] 8.9 fL Normal 7.5-12.5 [facility] Comment on above: Performed By: #### 9 1431, 31682, 866, 899, 496, 6399, 06531 #### [facility] of [place] [address] Acrobatic Rigger: Dean Maddox MD Platelets (Bld) [#/Vol] 404 10*3/uL High 140-400 [facility] Comment on above: Performed By: #### 9 1431, 83023, 866, 899, 496, 6399, 59418 #### [facility] of [place] [address] Acrobatic Rigger: Dean Maddox MD RBC (Bld) [#/Vol] 4.58 10*6/uL Normal 3.80-5.10 [facility] Comment on above: Performed By: #### 9 1431, 12171, 866, 899, 496, 6399, 92199 #### [facility] of [address], [address] [place] [address] Acrobatic Rigger: Dean Maddox MD WBC (Bld) [#/Vol] 11.6 10*3/uL High 3.8-10.8 [facility] Comment on above: Performed By: #### 9 1431, 21349, 866, 899, 496, 6399, 15860 #### [facility] of [address] [place] [address] Acrobatic Rigger: Dean Maddox MD CBC Auto Differentialon 07-23 Basophils (Bld) [#/Vol] 93 10*3/uL [facility] Basophils/100 WBC (Bld) 0.8 % [facility] Eosinophils (Bld) [#/Vol] 220 10*3/uL [facility] Eosinophils/100 WBC (Bld) 1.9 % [facility] Erythrocyte distribution width (RBC) [Ratio] 12.8 % 11.0 - 15.0 % [facility] Hematocrit (Bld) [Volume fraction] 41.1 % 35.0 - 45.0 % [facility] Hemoglobin (Bld) [Mass/Vol] 13.8 g/dL 11.7 - 15.5 g/dL [facility] Interpretation and review of laboratory results Abnormal [facility] Lymphocytes (Bld) [#/Vol] 2401 10*3/uL [facility] Lymphocytes/100 WBC (Bld) 20.7 % [facility] MCH (RBC) [Entitic mass] 30.1 pg 27.0 - 33.0 pg [facility] MCHC (RBC) [Mass/Vol] 33.6 g/dL 32.0 - 36.0 g/dL [facility] Comment on above: For adults, a slight decrease in the calculated MCHC value (in the range of 30 to 32 g/dL) is most likely not clinically significant; however, it should be interpreted with caution in correlation with other red cell parameters and the patient's clinical condition. MCV (RBC) [Entitic vol] 89.7 fL 80.0 - 100.0 fL [facility] Monocytes (Bld) [#/Vol] 661 10*3/uL [facility] Monocytes/100 WBC (Bld) 5.7 % [facility] Neutrophils (Bld) [#/Vol] 8224 10*3/uL High [facility] Neutrophils/100 WBC (Bld) 70.9 % [facility] Platelet mean volume (Bld) [Entitic vol] 8.9 fL 7.5 - 12.5 fL [facility] Platelets (Bld) [#/Vol] 404 10*3/uL High [facility] RBC (Bld) [#/Vol] 4.58 10*6/uL [facility] eah WBC (Bld) [#/Vol] 11.6 10*3/uL High [facility]/ANION GAPon 08-03-2024 Albumin [Mass/Vol] 4.1 g/dL Normal 3.6-5.1 [facility] Comment on above: Performed By: #### 9 1431, 00828, 866, 899, 496, 6399, 18265 #### [facility] of [place] [address] Acrobatic Rigger: Dean Maddox MD ALP [Catalytic activity/Vol] 98 U/L Normal 31-125 [facility] Comment on above: Performed By: #### 9 1431, 18395, 866, 899, 496, 6399, 19044 #### [facility] of [place] [address] Acrobatic Rigger: Dean Maddox MD ALT [Catalytic activity/Vol] 11 U/L Normal 6-29 [facility] Comment on above: Performed By: #### 9 1431, 45391, 866, 899, 496, 6399, 29167 #### [facility] of [place] [address] Acrobatic Rigger: Dean Maddox MD AST [Catalytic activity/Vol] 10 U/L Normal 10-35 [facility] Comment on above: Performed By: #### 9 1431, 03005, 866, 899, 496, 6399, 23858 #### [facility] of [place] [address] Acrobatic Rigger: Dean Maddox MD Bilirubin [Mass/Vol] 0.4 mg/dL Normal 0.2-1.2 [facility] Comment on above: Performed By: #### 9 1431, 32292, 866, 899, 496, 6399, 12373 #### [facility] of [place] [address] Acrobatic Rigger: Dean Maddox MD Calcium [Mass/Vol] 9.6 mg/dL Normal 8.6-10.2 [facility] Comment on above: Performed By: #### 9 1431, 14731, 866, 899, 496, 6399, 79249 #### [facility] of [address], [address] [place] [address] Acrobatic Rigger: Dean Maddox MD Chloride [Moles/Vol] 105 mmol/L Normal 98-110 [facility] Comment on above: Performed By: #### 9 1431, 50784, 866, 899, 496, 6399, 66513 #### [facility] [address], [address] [place] [address] Acrobatic Rigger: Dean Maddox MD CO2 [Moles/Vol] 20 mmol/L Normal 20-32 [facility] Comment on above: Performed By: #### 9 1431, 76799, 866, 899, 496, 6399, 67347 #### [facility] [place] [address] Acrobatic Rigger: Dean Maddox MD Creatinine [Mass/Vol] 1.30 mg/dL High 0.50-0.[address] [facility] Comment on above: Performed By: #### 9 1431, 00653, 866, 899, 496, 6399, 90449 #### [facility] of [address], [address] [place] [address] Acrobatic Rigger: Dean Maddox MD ELECTROLYTE BALANCE 11 mmol/L (calc) Normal 7-17 [facility] Comment on above: Performed By: #### 9 1431, 20025, 866, 899, 496, 6399, 44994 #### [facility] of [address], [address] [place] [address] Acrobatic Rigger: Dean Maddox MD GFR/1.73 sq M.predicted among non-blacks MDRD (S/P/Bld) [Vol rate/Area] 51 mL/min/{1.73_m2} Low > OR = 60 [facility] Comment on above: Performed By: #### 9 1431, 55232, 866, 899, 496, 6399, 78020 #### [facility] [place] [address] Acrobatic Rigger: Dean Maddox MD Glucose [Mass/Vol] 214 mg/dL High 65-99 [facility] Comment on above: Result Comment: Fasting reference interval For someone without known diabetes, a glucose value >125 mg/dL indicates that they may have diabetes and this should be confirmed with a follow-up test. Performed By: #### 9 1431, 15900, 866, 899, 496, 6399, 84347 #### [facility] [place] [address] Acrobatic Rigger: Dean Maddox MD Potassium [Moles/Vol] 4.9 mmol/L Normal 3.5-5.3 [facility] Comment on above: Performed By: #### 9 1431, 44467, 866, 899, 496, 6399, 95009 #### [facility] [place] [address] Acrobatic Rigger: Dean Maddox MD Protein [Mass/Vol] 7.0 g/dL Normal 6.1-8.1 [facility] Comment on above: Performed By: #### 9 1431, 85291, 866, 899, 496, 6399, 64820 #### [facility] [place] [address] Acrobatic Rigger: Dean Maddox MD Sodium [Moles/Vol] 136 mmol/L Normal 135-146 [facility] Comment on above: Performed By: #### 9 1431, 27276, 866, 899, 496, 6399, 99732 #### [facility] [place] [address] Acrobatic Rigger: Dean Maddox MD Urea nitrogen [Mass/Vol] 30 mg/dL High 7-25 [facility] Comment on above: Performed By: #### 9 1431, 25512, 866, 899, 496, 6399, 26235 #### [facility] [place] [address], [address] [facility] [place] [address] Acrobatic Rigger: Dean Maddox MD Comprehensive metabolic 2000 panelon 08-03-2024 Albumin [Mass/Vol] 4.1 g/dL 3.6 - 5.1 g/dL [facility] ALP [Catalytic activity/Vol] 98 U/L 31 - 125 U/L [facility] ALT [Catalytic activity/Vol] 11 U/L 6 - 29 U/L [facility] Anion gap [Moles/Vol] 11 mmol/L [place] AST [Catalytic activity/Vol] 10 U/L 10 - 35 U/L [facility] Bilirubin [Mass/Vol] 0.4 mg/dL 0.2 - 1 .2 mg/dL [facility] Calcium [Mass/Vol] 9.6 mg/dL 8.6 - 10. 2 mg/dL [facility] Chloride [Moles/Vol] 105 mmol/L 98 - 11 0 mmol/L [facility] CO2 [Moles/Vol] 20 mmol/L 20 - 32 mmol/L [facility] Creatinine [Mass/Vol] 1.3 mg/dL High 0.50 - 0.99 mg/dL [facility] GFR/1.73 sq M.predicted among non-blacks MDRD (S/P/Bld) [Vol rate/Area] 51 mL/min/{1.73_m2} Low > OR = 60 mL/min/1.73 m2 [facility] Glucose [Mass/Vol] 214 mg/dL High 65 - 99 mg/dL [facility] Comment on above: Fasting reference interval For someone without known diabetes, a glucose value >125 mg/dL indicates that they may have diabetes and this should be confirmed with a follow-up test. Potassium [Moles/Vol] 4.9 mmol/L 3.5 - 5.3 mmol/L [facility] Protein [Mass/Vol] 7 g/dL 6.1 - 8.1 g/dL [facility] Sodium [Moles/Vol] 136 mmol/L 135 - 146 mmol/L [facility] Urea nitrogen [Mass/Vol] 30 mg/dL High 7 - 25 mg/dL [facility] HEMOGLOBIN A1con 08-03-2024 HEMOGLOBIN A1c 10.6 % [...] for children. Performed By: #### 9 1431, 14742, 866, 899, 496, 6399, 42500 #### [facility] [address], [address] [place] [address] Acrobatic Rigger: Dean Maddox MD HEPATITIS C AB W/REFL TO HCV RNA, QN, PCRon 08-03-2024 HEPATITIS C ANTIBODY Normal [facility] Comment on above: Performed By: #### 9 1431, 30274, 866, 899, 496, 6399, 49454 #### [facility] [address], [address] [place] [address] Acrobatic Rigger: Dean Maddox MD HIV 1/2 ANTIGEN/ANTIBODY,FOU RTH GENERATION W/RFLon 08-03-2024 HIV AG/AB, 4TH GEN Normal [facility] Comment on above: Performed By: #### 9 1431, 60142, 866, 899, 496, 6399, 41948 #### [facility] [address], [address] [place] [address] Acrobatic Rigger: Dean Maddox MD HIV Antibody (HIV1/HIV2)on 0 08-03-2024 HIV 1+2 Ab+HIV1 p24 Ag IA Ql Non-Reactive NON-REACTIV E [facility] Comment on above: HIV-1 antigen and HI [...] purpose. For additional information please refer to http://education.[employer]/faq/DRJ430 (This link is being provided for informational/ educational purposes only.) The performance of this assay has not been clinically validated in patients less than 2 years old. HbA1c (Bld) [Mass fraction]o n 08-03-2024 Interpretation and review of laboratory results Abnormal [facility] Hemoglobin A1con 08-03-2024 HbA1c (Bld) [Mass fraction] 10.6 % High NINF [facility] Comment on above: For someone without known [...] HCV Ab IA Ql Non-Reactive NON-REACTIV E [facility] Comment on above: HCV antibody was non-reactive. There is no laboratory evidence of HCV infection. In most cases, no further action is required. However, if recent HCV exposure is suspected, a test for HCV RNA (test code 38953) is suggested. For additional information please refer to http://[employer]/faq/HPQ97z1 (This link is being provided for informational/ educational purposes only.) LIPID PANEL WITH REFLEX TO D IRECT LDLon 08-03-2024 Cholesterol [Mass/Vol] 232 mg/dL High <200 [facility] Comment on above: Performed By: #### 9 1431, 96171, 866, 899, 496, 9629, 68149 #### [facility] [address] [facility], [address] [place] [address] Acrobatic Rigger: Dean Maddox MD Cholesterol in HDL [Mass/Vol] 58 mg/dL Normal > OR = 50 [facility] Comment on above: Performed By: #### 9 1431, 00680, 866, 899, 496, 6399, 39775 #### [facility] [place] [address] Acrobatic Rigger: Dean Maddox MD Cholesterol in LDL [Mass/Vol] [...] LDL-C. Antoine SS et al. CHOLO. 2013;310(19): 6336-7627 (http://education.[employer]/faq/PNZ819) Performed By: #### 9 1431, 76860, 866, 899, 496, 6399, 86205 #### [facility] [place] [address] Acrobatic Rigger: Dean Maddox MD Cholesterol.total/Cho lesterol in HDL [Mass ratio] 4.0 {ratio} Normal <5.0 [facility] Comment on above: Performed By: #### 9 1431, 50366, 866, 899, 496, 6399, 08775 #### [facility] [place] [address] Acrobatic Rigger: Dean Maddox MD NON HDL CHOLESTEROL 174 mg/dL (calc) High <130 [facility] Comment on above: Result Comment: For patients with diabetes plus 1 major ASCVD risk factor, treating to a non-HDL-C goal of <100 mg/dL (LDL-C of <70 mg/dL) is considered a therapeutic option. Performed By: #### 9 1431, 32287, 866, 899, 496, 6399, 03791 #### [facility] [address], [address] [place] [address] Acrobatic Rigger: Dean Maddox MD Triglyceride [Mass/Vol] 167 mg/dL High <150 [facility] Comment on above: Performed By: #### 9 1431, 19778, 866, 899, 496, 6399, 19548 #### [facility] [place] [address] [facility], [address] [place] [address] Acrobatic Rigger: Dean Maddox MD Lipid 1996 panelon Cholesterol [Mass/Vol] 232 mg/dL High [facility] - 200 mg/dL [facility] Cholesterol in HDL [Mass/Vol] 58 mg/dL > OR = 50 [facility] Cholesterol in LDL [Mass/Vol] 144 mg/dL High mg/dL (calc) [facility] Comment on above: Reference range: <10 0 [...] LDL-C. Antoine SS et al. CHOLO. 2013;310(19): 8174-5779 (http://education.[employer]/faq/AVR899) Cholesterol non HDL [Mass/Vol] 174 mg/dL [facility] Comment on above: For patients with di abetes plus 1 major ASCVD risk factor, treating to a non-HDL-C goal of <100 mg/dL (LDL-C of <70 mg/dL) is considered a therapeutic option. Cholesterol.total/Cho lesterol in HDL [Mass ratio] 4 {ratio} [facility] Triglyceride [Mass/Vol] 167 mg/dL High [facility] - 150 mg/dL [facility] No Panel Informationon 08-03 [facility] Interpretation and review of laboratory results Abnormal [facility] T4, FREEon 08-03-2024 Free T4 [Mass/Vol] 0.9 ng/dL Normal 0.8-1.8 [facility] Comment on above: Performed By: #### 9 1431, 44052, 866, 899, 496, 6399, 38896 #### [facility] [address] [facility], [address] [place] [address] Acrobatic Rigger: Dean Maddox MD T4, Freeon 08-03-2024 Free T4 [Mass/Vol] 0.9 ng/dL 0.8 - 1.8 ng/dL [facility] TSHon 08-03-2024 TSH Qn 3.54 m[IU]/L Normal [facility] Comment on above: Result Comment: Refe rence Range > or = 20 Years 0.40-4.50 Ranges First trimester 0.26-2.66 Second trimester 0.55-2.73 Third trimester 0.43-2.91 Performed By: #### 9 1431, 36901, 866, 899, 496, 1199, 86162 #### [facility] [address] [facility], [address] [place] [address] Acrobatic Rigger: Dean Maddox MD TSH DL <= 0.005 mIU/L Qnon 0 08-03-2024 TSH Qn 3.54 m[IU]/L mIU/L [facility] Comment on above: Reference Range > or = 20 Years 0.40-4.50 Ranges First trimester 0.26-2.66 Second trimester 0.55-2.73 Third trimester 0.43-2.91 XR KNEES BILATERAL 2 VIEWS E ACH (STANDARD)on 08-02-2024 XR KNEES BILATERAL 2 VIEWS EACH (STANDARD) Normal [facility] Comment on above: Order Comment: Injur y/Trauma or Illness?:Illness/OtherHow long have you had these symptoms (acute/chronic)?:UnknownReason for exam?:Bilateral knee painHistory of cancer?:uSurgeries, chemotherapy, or radiation?:pacemakerType of Exam?:UnknownAdditional signs and symptoms?:none ED Prov Noteon 05-23-2024 ED Prov Note Normal [facility] XR HAND LEFT 3+ VIEWS (STAND ILIA)on 05-23-2024 XR HAND LEFT 3+ VIEWS (STANDARD) Normal [facility] Comment on above: Order Comment: Injur y/Trauma or Illness?:Illness/OtherHow long have you had these symptoms (acute/chronic)?:AcuteReason for exam?:Lt hand pain with swellingHistory of cancer?:uSurgeries, chemotherapy, or radiation?:pacemakerType of Exam?:InitialAdditional signs and symptoms?:Lt hand pain with swelling CBCon 04-29-2024 AUTO NRBC 0.0 % Normal [facility] Comment on above: Performed By: #### 4 [id number] ####[facility] [address] [place], [place] [address] Abbi Choudhary M.D. [id number] AUTO NRBC ABS COUNT 0.00 K/mcL Normal 0.00-0.00 [facility] Comment on above: Performed By: #### 4 5218 ####[facility] [address] [place], [place] [address] Abbi Choudhary M.D. [id number] Erythrocyte distribution width (RBC) [Ratio] 13.4 % Normal 11.6-14.8 [facility] Comment on above: Performed By: #### 4 5218 ####[facility] [address] [place], [place] [address] Abbi Choudhary M.D. [id number] Hematocrit (Bld) [Volume fraction] 29.3 % Low 36.0-46.0 [facility] Comment on above: Performed By: #### 4 5218 ####[facility] [address] [place], [place] [address] Abbi Choudhary M.D. [id number] Hemoglobin (Bld) [Mass/Vol] 9.6 g/dL Low 12.0-16.0 [facility] Comment on above: Performed By: #### 4 5218 ####[facility] [address] [place], [place] [address] Abbi Choudhary M.D. [id number] MCH (RBC) [Entitic mass] 31.0 pg Normal 26.0-34.0 [facility] Comment on above: Performed By: #### 4 5218 ####[facility] [address] [place], [place] [address] Abbi Choudhary M.D. [id number] MCV (RBC) [Entitic vol] 94.5 fL Normal 80.0-100.0 [facility] Comment on above: Performed By: #### 4 5218 ####[facility] [address] [place], [place] [address] Abbi Chuodhary M.D. [id number] MEAN CORPUSCULAR HEMOGLOBIN CONC 32.8 g/dL Normal 31.0-37.0 [facility] Comment on above: Performed By: #### 4 5218 ####[facility] [address] [place], [place] [address] Abbi Choudhary M.D. [id number] Platelet mean volume (Bld) [Entitic vol] 9.7 fL Normal 9.4-12.4 [facility] Comment on above: Performed By: #### 4 5218 ####[facility] [address] [place], [place] [address] Abbi Choudhary M.D. [id number] Platelets (Bld) [#/Vol] 289 10*3/uL Normal 150-400 [facility] Comment on above: Performed By: #### 4 5218 ####[facility] [address] [place], [place] [address] Abbi Choudhary M.D. [id number] RBC (Bld) [#/Vol] 3.10 10*6/uL Low 4.00-5.20 [facility] Comment on above: Performed By: #### 4 5218 ####[facility] [address] [place], [place] [address] Abbi Choudhary M.D. [id number] WBC (Bld) [#/Vol] 6.78 10*3/uL Normal 4.50-11.00 [facility] Comment on above: Performed By: #### 4 5218 ####[facility] [address] [place], [place] [address] Abbi Choudhary M.D. [id number] CBC panel Auto (Bld)on 04-29 Erythrocyte distribution width (RBC) [Entitic vol] 13.4 % 11.6 - 14.8 % [facility] Hematocrit (Bld) [Volume fraction] 29.3 % Low 36.0 - 46.0 % [facility] Hemoglobin (Bld) [Mass/Vol] 9.6 g/dL Low 12.0 - 16.0 g/dL [facility] Interpretation and review of laboratory results Abnormal [facility] MCH (RBC) [Entitic mass] 31 pg 26.0 - 34.0 pg [facility] MCHC (RBC) [Mass/Vol] 32.8 g/dL 31.0 - 37.0 g/dL [facility] MCV (RBC) [Entitic vol] 94.5 fL 80.0 - 100.0 fL [facility] Nucleated RBC (Bld) [#/Vol] 0 10*3/uL [facility] Nucleated RBC/100 WBC (Bld) [Ratio] 0 % [facility] Platelet mean volume (Bld) [Entitic vol] 9.7 fL 9.4 - 12.4 fL [facility] Platelets (Bld) [#/Vol] 289 10*3/uL [facility] RBC (Bld) [#/Vol] 3.1 10*6/uL Low [facility] WBC (Bld) [#/Vol] 6.78 10*3/uL [facility] Disch Summon 04-29-2024 Disch Summ Normal [facility] Glucose (Bld) [Mass/Vol]on 1 06-30-2023 Glucose [Mass/Vol] 240 mg/dL High 65 - 99 mg/dL [facility] Interpretation and review of laboratory results Abnormal [facility] Glucose [Mass/Vol] 340 mg/dL High 65 - 99 mg/dL [facility] Interpretation and review of laboratory results Abnormal [facility] POC GLUCOSE - [facility] 024 Glucose [Mass/Vol] 240 mg/dL High 65-99 [facility] Comment on above: Performed By: #### 4 6932 ####[facility] [address] [place], [place] [address] Abbi Choudhary M.D. [id number] Glucose [Mass/Vol] 340 mg/dL High 65-99 [facility] Comment on above: Performed By: #### 4 6932 ####[facility] [address] [place], [place] [address] Abbi Choudhary M.D. [id number] RENAL FUNCTION PANELon 04-29 Albumin [Mass/Vol] 3.2 g/dL Normal 3.2-5.2 [facility] Comment on above: Order Comment: [facility] has implemented the eGFR calculation approach that does not have a coefficient for race that conforms to the NKF-ASN Task Force Recommendations. Performed By: #### 4 6449 ####[facility] [address] [place], [place] [address] Abbi Choudhary M.D. [id number] Anion gap [Moles/Vol] 15 mmol/L Normal 10-20 [facility] Comment on above: Order Comment: [facility] [employer] has implemented the eGFR calculation approach that does not have a coefficient for race that conforms to the NKF-ASN Task Force Recommendations. Performed By: #### 4 6449 ####[facility] [address] [place], [place] [address] Abbi Choudhary M.D. [id number] Calcium [Mass/Vol] 8.5 mg/dL Normal 8.4-10.2 [facility] Comment on above: Order Comment: [facility] [employer] has implemented the eGFR calculation approach that does not have a coefficient for race that conforms to the NKF-ASN Task Force Recommendations. Performed By: #### 4 6449 ####[facility] [address] [place], [place] [address] Abbi Choudhary M.D. [id number] Chloride [Moles/Vol] 104 mmol/L Normal 98-108 [facility] Comment on above: Order Comment: [facility] [employer] has implemented the eGFR calculation approach that does not have a coefficient for race that conforms to the NKF-ASN Task Force Recommendations. Performed By: #### 4 6449 ####[facility] [address] [place], [place] [address] Abbi Choudhary M.D. [id number] Creatinine [Mass/Vol] 1.72 mg/dL High 0.40-1.10 [facility] Comment on above: Order Comment: [facility] [employer] has implemented the eGFR calculation approach that does not have a coefficient for race that conforms to the NKF-ASN Task Force Recommendations. Performed By: #### 4 6449 ####[facility] [address] [place], [place] [address] Abbi Choudhary M.D. [id number] EGFR 37 mL/min/1.73 m2 Low >=60 [facility] Comment on above: Order Comment: [facility] [employer] has implemented the eGFR calculation approach that does not have a coefficient for race that conforms to the NKF-ASN Task Force Recommendations. Result Comment: Lorie mated GFR was calculated using the 2020 CKD-EPI creatinine equation. Performed By: #### 4 6449 ####[facility] [address] [place], [place] [address] Abbi Choudhary M.D. [id number] Glucose [Mass/Vol] 358 mg/dL High 65-99 [facility] Comment on above: Order Comment: [facility] has implemented the eGFR calculation approach that does not have a coefficient for race that conforms to the NKF-ASN Task Force Recommendations. Performed By: #### 4 6449 ####[facility] [address] [place], [place] [address] Abbi Choudhary M.D. [id number] HCO3 (Bld) [Moles/Vol] 23 mmol/L Normal 21-32 [facility] Comment on above: Order Comment: [facility] has implemented the eGFR calculation approach that does not have a coefficient for race that conforms to the NKF-ASN Task Force Recommendations. Performed By: #### 4 6449 ####[facility] [address] [place], [place] [address] Abbi Choudhary M.D. [id number] Phosphate [Mass/Vol] 4.0 mg/dL Normal 2.7-4.5 [facility] Comment on above: Order Comment: [facility] has implemented the eGFR calculation approach that does not have a coefficient for race that conforms to the NKF-ASN Task Force Recommendations. Performed By: #### 4 6449 ####[facility] [address] [place], [place] [address] Abbi Choudhary M.D. [id number] Potassium [Moles/Vol] 4.5 mmol/L Normal 3.5-5.1 [facility] Comment on above: Order Comment: [facility] has implemented the eGFR calculation approach that does not have a coefficient for race that conforms to the NKF-ASN Task Force Recommendations. Performed By: #### 4 6449 ####[facility] [address] [place], [place] [address] Abbi Choudhary M.D. [id number] Sodium [Moles/Vol] 137 mmol/L Normal 135-145 [facility] Comment on above: Order Comment: [facility] has implemented the eGFR calculation approach that does not have a coefficient for race that conforms to the NKF-ASN Task Force Recommendations. Performed By: #### 4 6449 ####[facility] [address] [place], [place] [address] Abbi Choudhary M.D. [id number] Urea nitrogen [Mass/Vol] 30 mg/dL High 8-25 [facility] Comment on above: Order Comment: [facility] has implemented the eGFR calculation approach that does not have a coefficient for race that conforms to the NKF-ASN Task Force Recommendations. Performed By: #### 4 6449 ####[facility] [address] [place], [place] [address] Abbi Choudhary M.D. [id number] Urea nitrogen/Creatinine [Mass ratio] 17.4 mg/mg Normal 10.0-20.0 [facility] Comment on above: Order Comment: [facility] has implemented the eGFR calculation approach that does not have a coefficient for race that conforms to the NKF-ASN Task Force Recommendations. Performed By: #### 4 6449 ####[facility] [address] [place], [place] [address] Abbi Choudhary M.D. [id number] Renal function 2000 panelon 04-29-2024 Albumin [Mass/Vol] 3.2 g/dL 3.2 - 5.2 g/dL [facility] Anion gap [Moles/Vol] 15 mmol/L 10 - 2 0 mmol/L [facility] Calcium [Mass/Vol] 8.5 mg/dL 8.4 - 10. 2 mg/dL [facility] Chloride [Moles/Vol] 104 mmol/L 98 - 10 8 mmol/L [facility] Creatinine [Mass/Vol] 1.72 mg/dL High 0.40 - 1.10 mg/dL [facility] GFR/1.73 sq M.predicted CKD-EPI (S/P/Bld) [Vol rate/Area] 37 Low - PINF [facility] Comment on above: Estimated GFR was ca lculated using the 2020 CKD-EPI creatinine equation. Glucose [Mass/Vol] 358 mg/dL High 65 - 99 mg/dL [facility] HCO3 [Moles/Vol] 23 mmol/L 21 - 32 mmol/L [facility] Interpretation and review of laboratory results Abnormal [facility] Phosphate [Mass/Vol] 4 mg/dL 2.7 - 4 .5 mg/dL [facility] Potassium [Moles/Vol] 4.5 mmol/L 3.5 - 5.1 mmol/L [facility] Sodium [Moles/Vol] 137 mmol/L 135 - 145 mmol/L [facility] Urea nitrogen [Mass/Vol] 30 mg/dL High 8 - 25 mg/dL [facility] Urea nitrogen/Creatinine [Mass ratio] 17.4 mg/mg 10.0 - 20.0 [facility] has implemented the eGFR calculation approach that does not have a coefficient for race that conforms to the NKF-ASN Task Force Recommendations. [facility] CBCon 04-28-2024 AUTO NRBC 0.0 % Normal [facility] Comment on above: Performed By: #### 4 [id number] ####[facility] [address] [place] [address] bAbi Choudhary M.D. [id number] AUTO NRBC ABS COUNT 0.00 K/mcL Normal 0.00-0.00 [facility] Comment on above: Performed By: #### 4 5218 ####[facility] [address] [place] [address] Abbi Choudhary M.D. [id number] Erythrocyte distribution width (RBC) [Ratio] 13.2 % Normal 11.6-14.8 [facility] Comment on above: Performed By: #### 4 [id number] ####[facility] [address] [place] [address] Abbi Choudhary M.D. [id number] Hematocrit (Bld) [Volume fraction] 27.7 % Low 36.0-46.0 [facility] Comment on above: Performed By: #### 4 5218 ####[facility] [address] [place] [address] Abbi Choudhary M.D. [id number] Hemoglobin (Bld) [Mass/Vol] 9.4 g/dL Low 12.0-16.0 [facility] Comment on above: Performed By: #### 4 5218 ####[facility] [address] [place], [place] [address] Abbi Choudhary M.D. [id number] MCH (RBC) [Entitic mass] 31.9 pg Normal 26.0-34.0 [facility] Comment on above: Performed By: #### 4 [id number] ####[facility] [address] [place], [place] [address] Abbi Choudhary M.D. [id number] MCV (RBC) [Entitic vol] 93.9 fL Normal 80.0-100.0 [facility] [facility] Comment on above: Performed By: #### 4 [id number] ####[facility] [address] [place], [place] [address] Abbi Choudhary M.D. [id number] MEAN CORPUSCULAR HEMOGLOBIN CONC 33.9 g/dL Normal 31.0-37.0 [facility] Comment on above: Performed By: #### 4 [id number] ####[facility] [address] [place], [place] [address] Abbi Choudhary M.D. [id number] Platelet mean volume (Bld) [Entitic vol] 9.7 fL Normal 9.4-12.4 [facility] Comment on above: Performed By: #### 4 [id number] ####[facility] [address] [place], [place] [address] Abbi Choudhary M.D. [id number] Platelets (Bld) [#/Vol] 277 10*3/uL Normal 150-400 [facility] Comment on above: Performed By: #### 4 [id number] ####[facility] [address] [place], [place] [address] Abbi Choudhary M.D. [id number] RBC (Bld) [#/Vol] 2.95 10*6/uL Low 4.00-5.20 [facility] Comment on above: Performed By: #### 4 [id number] ####[facility] [address] [place], [place] [address] Abbi Choudhary M.D. [id number] WBC (Bld) [#/Vol] 8.19 10*3/uL Normal 4.50-11.00 [facility] Comment on above: Performed By: #### 4 [id number] ####[facility] [address] [place] [address] Abbi Choudhary M.D. [id number] CBC panel Auto (Bld)on 04-28 Erythrocyte distribution width (RBC) [Entitic vol] 13.2 % 11.6 - 14.8 % [facility] Hematocrit (Bld) [Volume fraction] 27.7 % Low 36.0 - 46.0 % [facility] Hemoglobin (Bld) [Mass/Vol] 9.4 g/dL Low 12.0 - 16.0 g/dL [facility] Interpretation and review of laboratory results Abnormal [facility] MCH (RBC) [Entitic mass] 31.9 pg 26.0 - 34.0 pg [facility] MCHC (RBC) [Mass/Vol] 33.9 g/dL 31.0 - 37.0 g/dL [facility] MCV (RBC) [Entitic vol] 93.9 fL 80.0 - 100.0 fL [facility] Nucleated RBC (Bld) [#/Vol] 0 10*3/uL [facility] Nucleated RBC/100 WBC (Bld) [Ratio] 0 % [facility] Platelet mean volume (Bld) [Entitic vol] 9.7 fL 9.4 - 12.4 fL [facility] Platelets (Bld) [#/Vol] 277 10*3/uL [facility] RBC (Bld) [#/Vol] 2.95 10*6/uL Low [facility] WBC (Bld) [#/Vol] 8.19 10*3/uL [facility] Glucose (Bld) [Mass/Vol]on 1 06-29-2023 Glucose [Mass/Vol] 236 mg/dL High 65 - 99 mg/dL [facility] Interpretation and review of laboratory results Abnormal [facility] Glucose [Mass/Vol] 282 mg/dL High 65 - 99 mg/dL [facility] Interpretation and review of laboratory results Abnormal [facility] Glucose [Mass/Vol] 267 mg/dL High 65 - 99 mg/dL [facility] Interpretation and review of laboratory results Abnormal [facility] Glucose [Mass/Vol] 315 mg/dL High 65 - 99 mg/dL [facility] Interpretation and review of laboratory results Abnormal [facility] POC GLUCOSE - [facility] 024 Glucose [Mass/Vol] 236 mg/dL High [address] [place] [address] Comment on above: Performed By: #### 4 [id number] ####[facility] [address] [place], [place] [address] Abbi Choudhary M.D. [id number] Glucose [Mass/Vol] 282 mg/dL [address] Comment on above: Performed By: #### 4 [id number] ####[facility] [address] [place], [place] [address] Abbi Choudhary M.D. [id number] Glucose [Mass/Vol] 267 mg/dL [address] Comment on above: Performed By: #### 4 [id number] ####[facility] [address] [place], [place] [address] Abbi Choudhary M.D. [id number] Glucose [Mass/Vol] 315 mg/dL [address] Comment on above: Performed By: #### 4 [id number] ####[facility] [address] [place], [place] [address] Abbi Choudhary M.D. [id number] RENAL FUNCTION PANEL 04-28 Albumin [Mass/Vol] 3.1 g/dL Low 3.2-5.2 [facility] Comment on above: Order Comment: [facility] has implemented the eGFR calculation approach that does not have a coefficient for race that conforms to the NKF-ASN Task Force Recommendations. Performed By: #### 4 [id number] ####[facility] [address] [place], [place] [address] Abbi Choudhary M.D. [id number] Anion gap [Moles/Vol] 15 mmol/L Normal 10-20 [facility] Comment on above: Order Comment: [facility] has implemented the eGFR calculation approach that does not have a coefficient for race that conforms to the NKF-ASN Task Force Recommendations. Performed By: #### 4 [id number] ####[facility] [address] [place], [place] [address] Abbi Choudhary M.D. [id number] Calcium [Mass/Vol] 8.7 mg/dL Normal 8.4-10.2 [facility] Comment on above: Order Comment: [facility] has implemented the eGFR calculation approach that does not have a coefficient for race that conforms to the NKF-ASN Task Force Recommendations. Performed By: #### 4 6449 ####[facility] [address] [place], [place] [address] Abbi Choudhary M.D. [id number] Chloride [Moles/Vol] 102 mmol/L Normal 98-108 [facility] Comment on above: Order Comment: [facility] has implemented the eGFR calculation approach that does not have a coefficient for race that conforms to the NKF-ASN Task Force Recommendations. Performed By: #### 4 [id number] ####[facility] [address] [place], [place] Julio Choudhary M.D. [id number] Creatinine [Mass/Vol] 1.68 mg/dL High 0.40-1.10 [facility] Comment on above: Order Comment: [facility] has implemented the eGFR calculation approach that does not have a coefficient for race that conforms to the NKF-ASN Task Force Recommendations. Performed By: #### 4 [id number] ####[facility] [address] [place], [place] [address] Abbi Choudhary M.D. [id number] EGFR 38 mL/min/1.73 m2 Low >=60 [facility] Comment on above: Order Comment: [facility] has implemented the eGFR calculation approach that does not have a coefficient for race that conforms to the NKF-ASN Task Force Recommendations. Result Comment: Lorie mated GFR was calculated using the 2020 CKD-EPI creatinine equation. Performed By: #### 4 [id number] ####[facility] [address] [place], [place] [address] Abbi Choudhary M.D. [id number] Glucose [Mass/Vol] 408 mg/dL Off scale high 65-99 [facility] Comment on above: Order Comment: [facility] has implemented the eGFR calculation approach that does not have a coefficient for race that conforms to the NKF-ASN Task Force Recommendations. Performed By: #### 4 6449 ####[facility] [address] [place], [place] [address] Abbi Choudhary M.D. [id number] HCO3 (Bld) [Moles/Vol] 24 mmol/L Normal 21-32 [facility] Comment on above: Order Comment: [facility] has implemented the eGFR calculation approach that does not have a coefficient for race that conforms to the NKF-ASN Task Force Recommendations. Performed By: #### 4 6449 ####[facility] [address] [place], [place] [address] Abbi Choudhary M.D. [id number] Phosphate [Mass/Vol] 3.8 mg/dL Normal 2.7-4.5 [facility] Comment on above: Order Comment: [facility] has implemented the eGFR calculation approach that does not have a coefficient for race that conforms to the NKF-ASN Task Force Recommendations. Performed By: #### 4 [id number] ####[facility] [address] [place] [address] bAbi Choudhary M.D. [id number] Potassium [Moles/Vol] 4.5 mmol/L Normal 3.5-5.1 [facility] Comment on above: Order Comment: [facility] has implemented the eGFR calculation approach that does not have a coefficient for race that conforms to the NKF-ASN Task Force Recommendations. Performed By: #### 4 6449 ####[facility] [address] [place] [address] Abbi Choudhary M.D. [id number] Sodium [Moles/Vol] 136 mmol/L Normal 135-145 [facility] Comment on above: Order Comment: [facility] has implemented the eGFR calculation approach that does not have a coefficient for race that conforms to the NKF-ASN Task Force Recommendations. Performed By: #### 4 [id number] ####[facility] [address] [place], [place] [address] Abbi Choudhary M.D. [id number] Urea nitrogen [Mass/Vol] 27 mg/dL High 8-25 [facility] Comment on above: Order Comment: [facility] has implemented the eGFR calculation approach that does not have a coefficient for race that conforms to the NKF-ASN Task Force Recommendations. Performed By: #### 4 6449 ####[facility] [address] [place], [place] [address] Abbi Choudhary M.D. [id number] Urea nitrogen/Creatinine [Mass ratio] 16.1 mg/mg Normal 10.0-20.0 [facility] Comment on above: Order Comment: [facility] has implemented the eGFR calculation approach that does not have a coefficient for race that conforms to the NKF-ASN Task Force Recommendations. Performed By: #### 4 [id number] ####[facility] [address] [place], [place] [address] Abbi Choudhary M.D. [id number] Renal function 2000 panelOrd ered By: Navneet Parr on 04-28-2024 Albumin [Mass/Vol] 3.1 g/dL Low 3.2 - 5.2 g/dL [facility] Anion gap [Moles/Vol] 15 mmol/L 10 - 2 0 mmol/L [facility] Calcium [Mass/Vol] 8.7 mg/dL 8.4 - 10. 2 mg/dL [facility] Chloride [Moles/Vol] 102 mmol/L 98 - 10 8 mmol/L [facility] Creatinine [Mass/Vol] 1.68 mg/dL High 0.40 - 1.10 mg/dL [facility] GFR/1.73 sq M.predicted CKD-EPI (S/P/Bld) [Vol rate/Area] 38 Low - PINF [facility] Comment on above: Estimated GFR was ca lculated using the 2020 CKD-EPI creatinine equation. Glucose [Mass/Vol] 408 mg/dL Critically high 65 - 9 9 mg/dL [facility] HCO3 [Moles/Vol] 24 mmol/L 21 - 32 mmol/L [facility] Interpretation and review of laboratory results Abnormal [facility] Phosphate [Mass/Vol] 3.8 mg/dL 2.7 - 4 .5 mg/dL [facility] Potassium [Moles/Vol] 4.5 mmol/L 3.5 - 5.1 mmol/L [facility] Sodium [Moles/Vol] 136 mmol/L 135 - 145 mmol/L [facility] Urea nitrogen [Mass/Vol] 27 mg/dL High 8 - 25 mg/dL [facility] Urea nitrogen/Creatinine [Mass ratio] 16.1 mg/mg 10.0 - 20.0 [facility] has implemented the eGFR calculation approach that does not have a coefficient for race that conforms to the NKF-ASN Task Force Recommendations. [facility] CBCon 04-27-2024 AUTO NRBC 0.0 % Normal [facility] Comment on above: Performed By: #### 4 [id number] ####[facility] [address] [place], [place] [address] Abbi Choudhary M.D. [id number] AUTO NRBC ABS COUNT 0.00 K/mcL Normal 0.00-0.00 [facility] Comment on above: Performed By: #### 4 [id number] ####[facility] [address] [place] [address] Abbi Choudhary M.D. [id number] Erythrocyte distribution width (RBC) [Ratio] 13.0 % Normal 11.6-14.8 [facility] Comment on above: Performed By: #### 4 [id number] ####[facility] [address] [place] [address] Abbi Choudhary M.D. [id number] Hematocrit (Bld) [Volume fraction] 33.0 % Low 36.0-46.0 [facility] Comment on above: Performed By: #### 4 [id number] ####[facility] [address] [place], [place] [address] Abbi Choudhary M.D. [id number] Hemoglobin (Bld) [Mass/Vol] 11.3 g/dL Low 12.0-16.0 [facility] Comment on above: Performed By: #### 4 [id number] ####[facility] [address] [place], [place] [address] Abbi Choudhary M.D. [id number] MCH (RBC) [Entitic mass] 31.1 pg Normal 26.0-34.0 [facility] Comment on above: Performed By: #### 4 [id number] ####[facility] [address] [place], [place] [address] Abbi Choudhary M.D. [id number] MCV (RBC) [Entitic vol] 90.9 fL Normal 80.0-100.0 [facility] Comment on above: Performed By: #### 4 [id number] ####[facility] [address] [place], [place] [address] Abbi Choudhary M.D. [id number] MEAN CORPUSCULAR HEMOGLOBIN CONC 34.2 g/dL Normal 31.0-37.0 [facility] Comment on above: Performed By: #### 4 [id number] ####[facility] [address] [place], [place] [address] Abbi Choudhary M.D. [id number] Platelet mean volume (Bld) [Entitic vol] 9.6 fL Normal 9.4-12.4 [facility] Comment on above: Performed By: #### 4 [id number] ####[facility] [address] [place], [place] [address] Abbi Choudhary M.D. [id number] Platelets (Bld) [#/Vol] 287 10*3/uL Normal 150-400 [facility] Comment on above: Performed By: #### 4 [id number] ####[facility] [address] [place], [place] [address] Abbi Choudhary M.D. [id number] RBC (Bld) [#/Vol] 3.63 10*6/uL Low 4.00-5.20 [facility] Comment on above: Performed By: #### 4 [id number] ####[facility] [address] [place], [place] [address] Abbi Choudhary M.D. [id number] WBC (Bld) [#/Vol] 9.85 10*3/uL Normal 4.50-11.00 [facility] Comment on above: Performed By: #### 4 [id number] ####[facility] [address] [place], [place] [address] Abbi Choudhary M.D. [id number] CBC panel Auto (Bld)on 04-27 Erythrocyte distribution width (RBC) [Entitic vol] 13 % 11.6 - 14.8 % [facility] Hematocrit (Bld) [Volume fraction] 33 % Low 36.0 - 46.0 % [facility] Hemoglobin (Bld) [Mass/Vol] 11.3 g/dL Low 12.0 - 16.0 g/dL [facility] Interpretation and review of laboratory results Abnormal [facility] MCH (RBC) [Entitic mass] 31.1 pg 26.0 - 34.0 pg [facility] MCHC (RBC) [Mass/Vol] 34.2 g/dL 31.0 - 37.0 g/dL [facility] MCV (RBC) [Entitic vol] 90.9 fL 80.0 - 100.0 fL [facility] Nucleated RBC (Bld) [#/Vol] 0 10*3/uL [facility] Nucleated RBC/100 WBC (Bld) [Ratio] 0 % [facility] Platelet mean volume (Bld) [Entitic vol] 9.6 fL 9.4 - 12.4 fL [facility] Platelets (Bld) [#/Vol] 287 10*3/uL [facility] RBC (Bld) [#/Vol] 3.63 10*6/uL Low [facility] WBC (Bld) [#/Vol] 9.85 10*3/uL [facility] eah [facility] CONSULTon 04-27-2024 CONSULT Normal [facility] Glucose (Bld) [Mass/Vol]on 1 06-28-2023 Glucose [Mass/Vol] 241 mg/dL High 65 - 99 mg/dL [facility] Interpretation and review of laboratory results Abnormal [facility] Glucose [Mass/Vol] 191 mg/dL High 65 - 99 mg/dL [facility] Interpretation and review of laboratory results Abnormal [facility] Glucose [Mass/Vol] 184 mg/dL High 65 - 99 mg/dL [facility] Interpretation and review of laboratory results Abnormal [facility] Glucose [Mass/Vol] 315 mg/dL High 65 - 99 mg/dL [facility] Interpretation and review of laboratory results Abnormal [facility] Glucose [Mass/Vol] 355 mg/dL High 65 - 99 mg/dL [facility] Interpretation and review of laboratory results Abnormal [facility] Glucose [Mass/Vol] 336 mg/dL High 65 - 99 mg/dL [facility] Interpretation and review of laboratory results Abnormal [facility] Gold Topon 04-27-2024 Extra Tube Hold for add-ons. [facility] Comment on above: Auto resulted. [facility] POC GLUCOSE - [facility] 024 Glucose [Mass/Vol] 241 mg/dL High 65-99 [facility] Comment on above: Performed By: #### 4 [id number] ####[facility] [address] [place], [place] [address] Abbi Choudhary M.D. [id number] Glucose [Mass/Vol] 191 mg/dL [address] Comment on above: Performed By: #### 4 [id number] ####[facility] [address] [place], [place] [address] Abbi Choudhary M.D. [id number] Glucose [Mass/Vol] 184 mg/dL [address] Comment on above: Performed By: #### 4 [id number] ####[facility] [address] [place], [place] [address] Abbi Choudhary M.D. [id number] Glucose [Mass/Vol] 315 mg/dL [address] Comment on above: Performed By: #### 4 [id number] ####[facility] [address] [place], [place] [address] Abbi Choudhary M.D. [id number] Glucose [Mass/Vol] 355 mg/dL [address] Comment on above: Performed By: #### 4 [id number] ####[facility] [address] [place], [place] [address] Abbi Choudhary M.D. [id number] Glucose [Mass/Vol] 336 mg/dL [address] Comment on above: Performed By: #### 4 [id number] ####[facility] [address] [place], [place] [address] Abbi Choudhary M.D. [id number] RENAL FUNCTION PANEL 04-27 Albumin [Mass/Vol] 3.7 g/dL Normal 3.2-5.2 [facility] Comment on above: Order Comment: [facility] has implemented the eGFR calculation approach that does not have a coefficient for race that conforms to the NKF-ASN Task Force Recommendations. Performed By: #### 4 [id number] ####[facility] [address] [place], [place] [address] Abbi Choudhary M.D. [id number] Anion gap [Moles/Vol] 17 mmol/L Normal 10-20 [facility] Comment on above: Order Comment: [facility] has implemented the eGFR calculation approach that does not have a coefficient for race that conforms to the NKF-ASN Task Force Recommendations. Performed By: #### 4 [id number] ####[facility] [address] [place], [place] [address] Abbi Choudhary M.D. [id number] Calcium [Mass/Vol] 8.7 mg/dL Normal 8.4-10.2 [facility] Comment on above: Order Comment: [facility] has implemented the eGFR calculation approach that does not have a coefficient for race that conforms to the NKF-ASN Task Force Recommendations. Performed By: #### 4 [id number] ####[facility] [address] [place], [place] [address] Abbi Choudhary M.D. [id number] Chloride [Moles/Vol] 99 mmol/L Normal 98-108 [facility] Comment on above: Order Comment: [facility] has implemented the eGFR calculation approach that does not have a coefficient for race that conforms to the NKF-ASN Task Force Recommendations. Performed By: #### 4 [id number] ####[facility] [address] [place], [place] [address] Abbi Choudhary M.D. [id number] Creatinine [Mass/Vol] 1.34 mg/dL High 0.40-1.10 [facility] Comment on above: Order Comment: [facility] has implemented the eGFR calculation approach that does not have a coefficient for race that conforms to the NKF-ASN Task Force Recommendations. Performed By: #### 4 [id number] ####[facility] [address] [place], [place] [address] Abbi Choudhary M.D. [id number] EGFR 49 mL/min/1.73 m2 Low >=60 [facility] Comment on above: Order Comment: [facility] has implemented the eGFR calculation approach that does not have a coefficient for race that conforms to the NKF-ASN Task Force Recommendations. Result Comment: Lorie mated GFR was calculated using the 2020 CKD-EPI creatinine equation. Performed By: #### 4 [id number] ####[facility] [address] [place], [place] [address] Abbi Choudhary M.D. [id number] Glucose [Mass/Vol] 361 mg/dL High 65-99 [facility] Comment on above: Order Comment: [facility] has implemented the eGFR calculation approach that does not have a coefficient for race that conforms to the NKF-ASN Task Force Recommendations. Performed By: #### 4 [id number] ####[facility] [address] [place], [place] [address] Abbi Choudhary M.D. [id number] HCO3 (Bld) [Moles/Vol] 23 mmol/L Normal 21-32 [facility] Comment on above: Order Comment: [facility] has implemented the eGFR calculation approach that does not have a coefficient for race that conforms to the NKF-ASN Task Force Recommendations. Performed By: #### 4 [id number] ####[facility] [address] [place], [place] [address] Abbi Choudhary M.D. [id number] Phosphate [Mass/Vol] 2.4 mg/dL Low 2.7-4.5 [facility] Comment on above: Order Comment: [facility] has implemented the eGFR calculation approach that does not have a coefficient for race that conforms to the NKF-ASN Task Force Recommendations. Performed By: #### 4 6449 ####[facility] [address] [place], [place] [address] Abbi Choudhary M.D. [id number] Potassium [Moles/Vol] 4.3 mmol/L Normal 3.5-5.1 [facility] Comment on above: Order Comment: [facility] has implemented the eGFR calculation approach that does not have a coefficient for race that conforms to the NKF-ASN Task Force Recommendations. Performed By: #### 4 [id number] ####[facility] [address] [place], [place] [address] Abbi Choudhary M.D. [id number] Sodium [Moles/Vol] 135 mmol/L Normal 135-145 [facility] Comment on above: Order Comment: [facility] has implemented the eGFR calculation approach that does not have a coefficient for race that conforms to the NKF-ASN Task Force Recommendations. Performed By: #### 4 [id number] ####[facility] [address] [place], [place] [address] Abbi Choudhary M.D. [id number] Urea nitrogen [Mass/Vol] 26 mg/dL High 8-25 [facility] Comment on above: Order Comment: [facility] has implemented the eGFR calculation approach that does not have a coefficient for race that conforms to the NKF-ASN Task Force Recommendations. Performed By: #### 4 [id number] ####[facility] [address] [place], [place] [address] Abbi Choudhary M.D. [id number] Urea nitrogen/Creatinine [Mass ratio] 19.4 mg/mg Normal 10.0-20.0 [facility] Comment on above: Order Comment: [facility] has implemented the eGFR calculation approach that does not have a coefficient for race that conforms to the NKF-ASN Task Force Recommendations. Performed By: #### 4 [id number] ####[facility] [address] [place], [place] [address] Abbi Choudhary M.D. [id number] Renal function 2000 [facility] 04-27-2024 Albumin [Mass/Vol] 3.7 g/dL 3.2 - 5.2 g/dL [facility] Anion gap [Moles/Vol] 17 mmol/L 10 - 2 0 mmol/L [facility] Calcium [Mass/Vol] 8.7 mg/dL 8.4 - 10. 2 mg/dL [facility] Chloride [Moles/Vol] 99 mmol/L 98 - 10 8 mmol/L [facility] Creatinine [Mass/Vol] 1.34 mg/dL High 0.40 - 1.10 mg/dL [facility] GFR/1.73 sq M.predicted CKD-EPI (S/P/Bld) [Vol rate/Area] 49 Low - PINF [facility] Comment on above: Estimated GFR was ca lculated using the 2020 CKD-EPI creatinine equation. Glucose [Mass/Vol] 361 mg/dL High 65 - 99 mg/dL [facility] HCO3 [Moles/Vol] 23 mmol/L 21 - 32 mmol/L [facility] Interpretation and review of laboratory results Abnormal [facility] Phosphate [Mass/Vol] 2.4 mg/dL Low 2.7 - 4 .5 mg/dL [facility] Potassium [Moles/Vol] 4.3 mmol/L 3.5 - 5.1 mmol/L [facility] Sodium [Moles/Vol] 135 mmol/L 135 - 145 mmol/L [facility] Urea nitrogen [Mass/Vol] 26 mg/dL High 8 - 25 mg/dL [facility] Urea nitrogen/Creatinine [Mass ratio] 19.4 mg/mg 10.0 - 20.0 [facility] has implemented the eGFR calculation approach that does not have a coefficient for race that conforms to the NKF-ASN Task Force Recommendations. [facility] BASIC METABOLIC PANELon 12-0 Anion gap [Moles/Vol] 19 mmol/L Normal 10-20 [facility] [facility] Services Comment on above: Order Comment: [facility] [employer] has implemented the eGFR calculation approach that does not have a coefficient for race that conforms to the NKF-ASN Task Force Recommendations. Performed By: #### 4 [id number] ####[facility] [address], [place] [address] Abbi Choudhary M.D. [id number] Calcium [Mass/Vol] 8.9 mg/dL Normal 8.4-10.2 [facility] Comment on above: Order Comment: [facility] [employer] has implemented the eGFR calculation approach that does not have a coefficient for race that conforms to the NKF-ASN Task Force Recommendations. Performed By: #### 4 6124 ####[facility] [address], [place] [address] Abbi Choudhary M.D. [id number] Chloride [Moles/Vol] 99 mmol/L Normal 98-108 [facility] Comment on above: Order Comment: [facility] [employer] has implemented the eGFR calculation approach that does not have a coefficient for race that conforms to the NKF-ASN Task Force Recommendations. Performed By: #### 4 6124 ####[facility] [address] [place], [place] [address] Abbi Choudhary M.D. [id number] Creatinine [Mass/Vol] 1.66 mg/dL High 0.40-1.10 [facility] Comment on above: Order Comment: [facility] Services has implemented the eGFR calculation approach that does not have a coefficient for race that conforms to the NKF-ASN Task Force Recommendations. Performed By: #### 4 6124 ####[facility] [address] [place], [place] [address] Abbi Choudhary M.D. [id number] EGFR 38 mL/min/1.73 m2 Low >=60 [facility] Comment on above: Order Comment: [facility] [employer] has implemented the eGFR calculation approach that does not have a coefficient for race that conforms to the NKF-ASN Task Force Recommendations. Result Comment: Lorie mated GFR was calculated using the 2020 CKD-EPI creatinine equation. Performed By: #### 4 6124 ####[facility] [address] [place], [place] [address] Abbi Choudhary M.D. [id number] Glucose [Mass/Vol] 293 mg/dL High 65-99 [facility] Comment on above: Order Comment: [facility] [employer] has implemented the eGFR calculation approach that does not have a coefficient for race that conforms to the NKF-ASN Task Force Recommendations. Performed By: #### 4 6124 ####[facility] [address] [place], [place] [address] Abbi Choudhary M.D. [id number] HCO3 (Bld) [Moles/Vol] 24 mmol/L Normal 21-32 [facility] Comment on above: Order Comment: [facility] [employer] has implemented the eGFR calculation approach that does not have a coefficient for race that conforms to the NKF-ASN Task Force Recommendations. Performed By: #### 4 6124 ####[facility] [address] [place], [place] [address] Abbi Choudhary M.D. [id number] Potassium [Moles/Vol] 4.3 mmol/L Normal 3.5-5.1 [facility] Comment on above: Order Comment: [facility] [employer] has implemented the eGFR calculation approach that does not have a coefficient for race that conforms to the NKF-ASN Task Force Recommendations. Performed By: #### 4 6124 ####[facility] [address] [place], [place] [address] Abbi Choudhary M.D. [id number] Sodium [Moles/Vol] 138 mmol/L Normal 135-145 [facility] Comment on above: Order Comment: [facility] Services has implemented the eGFR calculation approach that does not have a coefficient for race that conforms to the NKF-ASN Task Force Recommendations. Performed By: #### 4 6124 ####[facility] [address] [place], [place] [address] Abbi Choudhary M.D. [id number] Urea nitrogen [Mass/Vol] 30 mg/dL High 8-25 [facility] Comment on above: Order Comment: [facility] Services has implemented the eGFR calculation approach that does not have a coefficient for race that conforms to the NKF-ASN Task Force Recommendations. Performed By: #### 4 6124 #### LAB [address] [place], [place] [address] Abbi Choudhary M.D. [id number] Urea nitrogen/Creatinine [Mass ratio] 18.1 mg/mg Normal 10.0-20.0 [facility] Comment on above: Order Comment: [facility] has implemented the eGFR calculation approach that does not have a coefficient for race that conforms to the NKF-ASN Task Force Recommendations. Performed By: #### 4 6124 ####[facility] [address] [place], [place] [address] Abbi Choudhary M.D. [id number] Basic metabolic 2000 panelon 04-26-2024 Anion gap [Moles/Vol] 19 mmol/L 10 - 2 0 mmol/L [facility] Calcium [Mass/Vol] 8.9 mg/dL 8.4 - 10. 2 mg/dL [facility] Chloride [Moles/Vol] 99 mmol/L 98 - 10 8 mmol/L [facility] Creatinine [Mass/Vol] 1.66 mg/dL High 0.40 - 1.10 mg/dL [facility] GFR/1.73 sq M.predicted CKD-EPI (S/P/Bld) [Vol rate/Area] 38 Low - PINF [facility] Comment on above: Estimated GFR was ca lculated using the 2020 CKD-EPI creatinine equation. Glucose [Mass/Vol] 293 mg/dL High 65 - 99 mg/dL [facility] HCO3 [Moles/Vol] 24 mmol/L 21 - 32 mmol/L [facility] Potassium [Moles/Vol] 4.3 mmol/L 3.5 - 5.1 mmol/L [facility] Sodium [Moles/Vol] 138 mmol/L 135 - 145 mmol/L [facility] Urea nitrogen [Mass/Vol] 30 mg/dL High 8 - 25 mg/dL [facility] Urea nitrogen/Creatinine [Mass ratio] 18.1 mg/mg 10.0 - 20.0 [facility] has implemented the eGFR calculation approach that does not have a coefficient for race that conforms to the NKF-ASN Task Force Recommendations. [facility] CBC Auto Differentialon 12-0 Basophils (Bld) [#/Vol] 0.05 10*3/uL [facility] Basophils/100 WBC (Bld) 0.5 % [facility] Eosinophils (Bld) [#/Vol] 0.18 10*3/uL [facility] Eosinophils/100 WBC (Bld) 1.7 % [facility] Erythrocyte distribution width (RBC) [Entitic vol] 13.2 % 11.6 - 14.8 % [facility] Hematocrit (Bld) [Volume fraction] 34.9 % Low 36.0 - 46.0 % [facility] Hemoglobin (Bld) [Mass/Vol] 11.9 g/dL Low 12.0 - 16.0 g/dL [facility] Immature granulocytes (Bld) [#/Vol] 0.09 10*3/uL [facility] Immature granulocytes/100 WBC (Bld) 0.9 % [facility] Comment on above: The IG parameter is the percentage of metamyelocytes, myelocytes and promyelocytes. An immature granulocyte count (IG) of 1% or more suggests the possibility of infection, an IG count of 3% is very likely related to an infection. Interpretation and review of laboratory results Abnormal [facility] Lymphocytes (Bld) [#/Vol] 1.6 10*3/uL [facility] Lymphocytes/100 WBC (Bld) 15.3 % [facility] MCH (RBC) [Entitic mass] 31.2 pg 26.0 - 34.0 pg [facility] MCHC (RBC) [Mass/Vol] 34.1 g/dL 31.0 - 37.0 g/dL [facility] MCV (RBC) [Entitic vol] 91.4 fL 80.0 - 100.0 fL [facility] Monocytes (Bld) [#/Vol] 0.5 10*3/uL [facility] Monocytes/100 WBC (Bld) 4.8 % [facility] Neutrophils (Bld) [#/Vol] 8.04 10*3/uL High [facility] Neutrophils/100 WBC (Bld) 76.8 % [facility] Nucleated RBC (Bld) [#/Vol] 0 10*3/uL [facility] Nucleated RBC/100 WBC (Bld) [Ratio] 0 % [facility] Platelet mean volume (Bld) [Entitic vol] 9.8 fL 9.4 - 12.4 fL [facility] Platelets (Bld) [#/Vol] 294 10*3/uL [facility] RBC (Bld) [#/Vol] 3.82 10*6/uL Low [facility] WBC (Bld) [#/Vol] 10.46 10*3/uL [facility] [place] [facility] CBC WITH AUTO DIFFERENTIALon 04-26-2024 AUTO NRBC 0.0 % [facility] Comment on above: Performed By: #### L [id number] ####[facility] [address] [place], [place] [address] Abbi Choudhary M.D. [id number] AUTO NRBC ABS COUNT 0.00 K/mcL Normal 0.00-0.00 [facility] Comment on above: Performed By: #### L [id number] ####[facility] [address] [place], [place] [address] Abbi Choudhary M.D. [id number] BASOPHILS ABSOLUTE COUNT 0.05 K/mcL Normal 0.00-0.30 [facility] Comment on above: Performed By: #### L [id number] ####[facility] [address] [place], [place] [address] Abbi Choudhary M.D. [id number] Basophils/100 WBC (Bld) 0.5 % Normal [facility] Comment on above: Performed By: #### L [id number] ####[facility] [address] [place], [place] [address] Abbi Choudhary M.D. [id number] Eosinophils (Bld) [#/Vol] 0.18 10*3/uL Normal 0.00-0.50 [facility] Comment on above: Performed By: #### L [id number] ####[facility] [address] [place] [address] Abbi Choudhary M.D. [id number] Eosinophils/100 WBC (Bld) 1.7 % Normal [facility] Comment on above: Performed By: #### L [id number] ####[facility] [address] [place] [address] Abbi Choudhary M.D. [id number] Erythrocyte distribution width (RBC) [Ratio] 13.2 % Normal 11.6-14.8 [facility] Comment on above: Performed By: #### L [id number] ####[facility] [address] [place] [address] Abbi Choudhary M.D. [id number] Hematocrit (Bld) [Volume fraction] 34.9 % Low 36.0-46.0 [facility] Comment on above: Performed By: #### L [id number] ####[facility] [address] [place] [address] Abbi Choudhary M.D. [id number] Hemoglobin (Bld) [Mass/Vol] 11.9 g/dL Low 12.0-16.0 [facility] Comment on above: Performed By: #### L [id number] ####[facility] [address] [place] [address] Abbi Choudhary M.D. [id number] IG ABSOLUTE 0.09 K/mcL Normal 0.00-0.30 [facility] Comment on above: Performed By: #### L [id number] ####[facility] [address] [place] [address] Abbi Choudhary M.D. [id number] IG PERCENT 0.90 % Normal [facility] Comment on above: Result Comment: The IG parameter is the percentage of metamyelocytes, myelocytes and promyelocytes. An immature granulocyte count (IG) of 1% or more suggests the possibility of infection, an IG count of 3% is very likely related to an infection. Performed By: #### L [id number] ####[facility] [address] [place], [place] [address] Abbi Chuodhary M.D. [id number] Lymphocytes (Bld) [#/Vol] 1.60 10*3/uL Normal 0.90-4.00 [facility] Comment on above: Performed By: #### L [id number] ####[facility] [address] [place], [place] [address] Abbi Choudhary M.D. [id number] Lymphocytes/100 WBC (Bld) 15.3 % Normal [facility] Comment on above: Performed By: #### L [id number] ####[facility] [address] [place] [address] Abbi Choudhary M.D. [id number] MCH (RBC) [Entitic mass] 31.2 pg Normal 26.0-34.0 [facility] Comment on above: Performed By: #### L [id number] ####[facility] [address] [place] [address] Abbi Choudhary M.D. [id number] MCV (RBC) [Entitic vol] 91.4 fL Normal 80.0-100.0 [facility] Comment on above: Performed By: #### L [id number] ####[facility] [address] [place], [place] [address] Abbi Choudhary M.D. [id number] MEAN CORPUSCULAR HEMOGLOBIN CONC 34.1 g/dL Normal 31.0-37.0 [facility] Comment on above: Performed By: #### L [id number] ####[facility] [address] [place] [address] Abbi Choudhary M.D. [id number] Monocytes (Bld) [#/Vol] 0.50 10*3/uL Normal 0.30-0.90 [facility] Comment on above: Performed By: #### L [id number] ####[facility] [address] [place] [address] Abbi Choudhary M.D. [id number] Monocytes/100 WBC (Bld) 4.8 % Normal [facility] Comment on above: Performed By: #### L [id number] ####[facility] [address] [place], [place] [address] Abbi Choudhary M.D. [id number] NEUTROPHILS ABSOLUTE COUNT 8.04 K/mcL High 1.70-7.00 [facility] Comment on above: Performed By: #### L [id number] ####[facility] [address] [place], [place] [address] Abbi Choudhary M.D. [id number] Neutrophils/100 WBC (Bld) 76.8 % Normal [facility] Comment on above: Performed By: #### L [id number] ####[facility] [address] [place], [place] [address] Abbi Choudhary M.D. [id number] Platelet mean volume (Bld) [Entitic vol] 9.8 fL Normal 9.4-12.4 [facility] Comment on above: Performed By: #### L [id number] ####[facility] [address] [place], [place] [address] Abbi Choudhary M.D. [id number] Platelets (Bld) [#/Vol] 294 10*3/uL Normal 150-400 [facility] Comment on above: Performed By: #### L [id number] ####[facility] [address] [place], [place] [address] Abbi Choudhary M.D. [id number] RBC (Bld) [#/Vol] 3.82 10*6/uL Low 4.00-5.20 [facility] Comment on above: Performed By: #### L [id number] ####[facility] [address] [place], [place] [address] Abbi Choudhary M.D. [id number] WBC (Bld) [#/Vol] 10.46 10*3/uL Normal 4.50-11.00 [facility] Comment on above: Performed By: #### L [id number] ####[facility] [address] [place], [place] [address] Abbi Choudhary M.D. [id number] CRP, INFLAMMATIONon 04-26-20 CRP [Mass/Vol] 91.8 mg/L High 0.0-10.0 [facility] Comment on above: Performed By: #### 4 5334 ####[facility] [address] [place], [place] [address] Abbi Choudhary M.D. [id number] CRP, Inflammationon 04-26-20 24 CRP [Mass/Vol] 91.8 mg/L High 0.0 - 10.0 mg/L [facility] Dark Green TopOrdered By: Sa sabrina Aguilar on 04-26-2024 Extra Tube n [facility] ED Prov Noteon 04-26-2024 ED Prov Note Normal [facility] ESR Westergren method (Bld) [Velocity]on 04-26-2024 ESR (Bld) [Velocity] 58 mm/h High [facility] Interpretation and review of laboratory results Abnormal [facility] H AND Paulino 04-26-2024 H AND P Normal [facility] No Panel Informationon 04-26 Extra Tube Hold for add-ons. [facility] Comment on above: Auto resulted. [facility] Interpretation and review of laboratory results Abnormal [facility] SEDIMENTATION RATEon 024 SEDIMENTATION RATE, ERYTHROCYTE 58 mm/hr High 0-20 [facility] Comment on above: Performed By: #### 4 [id number] ####[facility] [address] [place], [place] [address] Abbi Choudhary M.D. [id number] XR FOOT LEFT 3+ VIEWS (STAND ILIA)on 04-26-2024 XR FOOT LEFT 3+ VIEWS (STANDARD) Normal [facility] Comment on above: Order Comment: Injur y/Trauma or Illness?:Illness/OtherPatient arrives with EMS ([facility]). She ambulated off of EMS cot [...] symptoms (acute/chronic)?:AcuteReason for exam?:Patient arrives with EMS ([facility]). She ambulated off of EMS cot [...] Exam?:InitialAdditional signs and symptoms?:Patient arrives with EMS ([facility]). She ambulated off of EMS cot [...] bony abnormality is seen. Workstation ID: [id number] EXAMINATION: XR FOOT LEFT 3+ VIEWS (STANDARD) 04/26/2024 8:26 pm HISTORY: ORDERING SYSTEM PROVIDED HISTORY: post op eval, TECHNOLOGIST PROVIDED HISTORY: Illness/Other Reason for exam: Patient arrives with EMS ([facility]). She ambulated off of EMS cot [...] signs and symptoms: Patient arrives with EMS ([facility]). She ambulated off of EMS cot [...] Reason for exam: Patient arrives with EMS ([facility]). She ambulated off of EMS cot [...] signs and symptoms: Patient arrives with EMS ([facility]). She ambulated off of EMS cot [...] bony abnormality is seen. Workstation ID: [id number] [facility] Radiology Study observation (narrative) [facility] XR Foot - left 3 ViewsOrdere d By: Agustin Andrea on 04-26-2024 [facility] Work Phone: CBCon 04-04-2024 AUTO NRBC 0.0 % Normal [facility] Comment on above: Performed By: #### 4 [id number] ####[facility] [address] [place], [place] [address] Abbi Choudhary M.D. [id number] AUTO NRBC ABS COUNT 0.00 K/mcL Normal 0.00-0.00 [facility] Comment on above: Performed By: #### 4 [id number] ####[facility] [address] [place], [place] [address] Abbi Choudhary M.D. [id number] Erythrocyte distribution width (RBC) [Ratio] 13.1 % Normal 11.6-14.8 [facility] Comment on above: Performed By: #### 4 [id number] ####[facility] [address] [place], [place] [address] Abbi Choudhary M.D. [id number] Hematocrit (Bld) [Volume fraction] 26.7 % Low 36.0-46.0 [facility] Comment on above: Performed By: #### 4 [id number] ####[facility] [address] [place], [place] [address] Abbi Choudhary M.D. [id number] Hemoglobin (Bld) [Mass/Vol] 8.9 g/dL Low 12.0-16.0 [facility] Comment on above: Performed By: #### 4 [id number] ####[facility] [address] [place], [place] [address] Abbi Choudhary M.D. [id number] MCH (RBC) [Entitic mass] 31.1 pg Normal 26.0-34.0 [facility] Comment on above: Performed By: #### 4 [id number] ####[facility] [address] [place], [place] [address] Abbi Choudhary M.D. [id number] MCV (RBC) [Entitic vol] 93.4 fL Normal 80.0-100.0 [facility] Comment on above: Performed By: #### 4 [id number] ####[facility] [address] [place], [place] [address] Abbi Choudhary M.D. [id number] MEAN CORPUSCULAR HEMOGLOBIN CONC 33.3 g/dL Normal 31.0-37.0 [facility] Comment on above: Performed By: #### 4 [id number] ####[facility] [address] [place], [place] [address] Abbi Choudhary M.D. [id number] Platelet mean volume (Bld) [Entitic vol] 9.6 fL Normal 9.4-12.4 [facility] Comment on above: Performed By: #### 4 [id number] ####[facility] [address] [place] [address] Abbi Choudhary M.D. [id number] Platelets (Bld) [#/Vol] 256 10*3/uL Normal 150-400 [facility] Comment on above: Performed By: #### 4 [id number] ####[facility] [address] [place] [address] Abbi Choudhary M.D. [id number] RBC (Bld) [#/Vol] 2.86 10*6/uL Low 4.00-5.20 [facility] Comment on above: Performed By: #### 4 [id number] ####[facility] [address] [place], [place] [address] Abbi Choudhary M.D. [id number] WBC (Bld) [#/Vol] 7.11 10*3/uL Normal 4.50-11.00 [facility] Comment on above: Performed By: #### 4 [id number] ####[facility] [address] [place], [place] [address] Abbi Choudhary M.D. [id number] CBC panel Auto (Bld)on 04-04 Erythrocyte distribution width (RBC) [Entitic vol] 13.1 % 11.6 - 14.8 % [facility] Hematocrit (Bld) [Volume fraction] 26.7 % Low 36.0 - 46.0 % [facility] Hemoglobin (Bld) [Mass/Vol] 8.9 g/dL Low 12.0 - 16.0 g/dL [facility] Interpretation and review of laboratory results Abnormal [facility] MCH (RBC) [Entitic mass] 31.1 pg 26.0 - 34.0 pg [facility] MCHC (RBC) [Mass/Vol] 33.3 g/dL 31.0 - 37.0 g/dL [facility] MCV (RBC) [Entitic vol] 93.4 fL 80.0 - 100.0 fL [facility] Nucleated RBC (Bld) [#/Vol] 0 10*3/uL [facility] Nucleated RBC/100 WBC (Bld) [Ratio] 0 % [facility] Platelet mean volume (Bld) [Entitic vol] 9.6 fL 9.4 - 12.4 fL [facility] Platelets (Bld) [#/Vol] 256 10*3/uL [facility] RBC (Bld) [#/Vol] 2.86 10*6/uL Low [facility] WBC (Bld) [#/Vol] 7.11 10*3/uL [facility] Disch Summon 04-04-2024 Disch Summ Normal [facility] RENAL FUNCTION PANELon 04-04 Albumin [Mass/Vol] 3.2 g/dL Normal 3.2-5.2 [facility] Comment on above: Order Comment: [facility] has implemented the eGFR calculation approach that does not have a coefficient for race that conforms to the NKF-ASN Task Force Recommendations. Performed By: #### 4 6449 ####[facility] [address] [place], [place] [address] Abbi Choudhary M.D. [id number] Anion gap [Moles/Vol] 12 mmol/L Normal 10-20 [facility] Comment on above: Order Comment: [facility] has implemented the eGFR calculation approach that does not have a coefficient for race that conforms to the NKF-ASN Task Force Recommendations. Performed By: #### 4 6449 ####[facility] [address] [place], [place] [address] Abbi Choudhary M.D. [id number] Calcium [Mass/Vol] 8.4 mg/dL Normal 8.4-10.2 [facility] Comment on above: Order Comment: [facility] [employer] has implemented the eGFR calculation approach that does not have a coefficient for race that conforms to the NKF-ASN Task Force Recommendations. Performed By: #### 4 6449 ####[facility] [address] [place], [place] [address] Abbi Choudhary M.D. [id number] Chloride [Moles/Vol] 105 mmol/L Normal 98-108 [facility] Comment on above: Order Comment: [facility] [employer] has implemented the eGFR calculation approach that does not have a coefficient for race that conforms to the NKF-ASN Task Force Recommendations. Performed By: #### 4 6449 ####[facility] [address] [place] [address] Abbi Choudhary M.D. [id number] Creatinine [Mass/Vol] 1.34 mg/dL High 0.40-1.10 [facility] Comment on above: Order Comment: [facility] has implemented the eGFR calculation approach that does not have a coefficient for race that conforms to the NKF-ASN Task Force Recommendations. Performed By: #### 4 6449 ####[facility] [address] [place], [place] [address] Abbi Choudhary M.D. [id number] EGFR 50 mL/min/1.73 m2 Low >=60 [facility] Comment on above: Order Comment: [facility] has implemented the eGFR calculation approach that does not have a coefficient for race that conforms to the NKF-ASN Task Force Recommendations. Result Comment: Lorie mated GFR was calculated using the 2020 CKD-EPI creatinine equation. Performed By: #### 4 6449 ####[facility] [address] [place], [place] [address] Abbi Choudhary M.D. [id number] Glucose [Mass/Vol] 245 mg/dL High 65-99 [facility] Comment on above: Order Comment: [facility] has implemented the eGFR calculation approach that does not have a coefficient for race that conforms to the NKF-ASN Task Force Recommendations. Performed By: #### 4 6449 ####[facility] [address] [place], [place] [address] Abbi Choudhary M.D. [id number] HCO3 (Bld) [Moles/Vol] 28 mmol/L Normal 21-32 [facility] Comment on above: Order Comment: [facility] has implemented the eGFR calculation approach that does not have a coefficient for race that conforms to the NKF-ASN Task Force Recommendations. Performed By: #### 4 6449 ####[facility] [address] [place], [place] [address] Abbi Choudhary M.D. [id number] Phosphate [Mass/Vol] 3.8 mg/dL Normal 2.7-4.5 [facility] Comment on above: Order Comment: [facility] has implemented the eGFR calculation approach that does not have a coefficient for race that conforms to the NKF-ASN Task Force Recommendations. Performed By: #### 4 6449 ####[facility] [address] [place], [place] [address] Abbi Choudhary M.D. [id number] Potassium [Moles/Vol] 4.0 mmol/L Normal 3.5-5.1 [facility] Comment on above: Order Comment: [facility] has implemented the eGFR calculation approach that does not have a coefficient for race that conforms to the NKF-ASN Task Force Recommendations. Performed By: #### 4 6449 ####[facility] [address] [place], [place] [address] Abbi Choudhary M.D. [id number] Sodium [Moles/Vol] 141 mmol/L Normal 135-145 [facility] Comment on above: Order Comment: [facility] has implemented the eGFR calculation approach that does not have a coefficient for race that conforms to the NKF-ASN Task Force Recommendations. Performed By: #### 4 [id number] ####[facility] [address] [place], [place] [address] Abbi Choudhary M.D. [id number] Urea nitrogen [Mass/Vol] 20 mg/dL Normal 8-25 [facility] Comment on above: Order Comment: [facility] has implemented the eGFR calculation approach that does not have a coefficient for race that conforms to the NKF-ASN Task Force Recommendations. Performed By: #### 4 [id number] ####[facility] [address] [place], [place] [address] Abbi Choudhary M.D. [id number] Urea nitrogen/Creatinine [Mass ratio] 14.9 mg/mg Normal 10.0-20.0 [facility] Comment on above: Order Comment: [facility] has implemented the eGFR calculation approach that does not have a coefficient for race that conforms to the NKF-ASN Task Force Recommendations. Performed By: #### 4 [id number] ####[facility] [address] [place], [place] [address] Abbi Choudhary M.D. [id number] [facility] Albumin [Mass/Vol] 3.2 g/dL 3.2 - 5.2 g/dL [facility] Anion gap [Moles/Vol] 12 mmol/L 10 - 2 0 mmol/L [facility] Calcium [Mass/Vol] 8.4 mg/dL 8.4 - 10. 2 mg/dL [facility] Chloride [Moles/Vol] 105 mmol/L 98 - 10 8 mmol/L [facility] Creatinine [Mass/Vol] 1.34 mg/dL High 0.40 - 1.10 mg/dL [facility] GFR/1.73 sq M.predicted CKD-EPI (S/P/Bld) [Vol rate/Area] 50 Low - PINF [facility] Glucose [Mass/Vol] 245 mg/dL High 65 - 99 mg/dL [facility] HCO3 [Moles/Vol] 28 mmol/L 21 - 32 mmol/L [facility] Interpretation and review of laboratory results Abnormal [facility] Phosphate [Mass/Vol] 3.8 mg/dL 2.7 - 4 .5 mg/dL [facility] Potassium [Moles/Vol] 4 mmol/L 3.5 - 5.1 mmol/L [facility] Sodium [Moles/Vol] 141 mmol/L 135 - 145 mmol/L [facility] Urea nitrogen [Mass/Vol] 20 mg/dL 8 - 25 mg/dL [facility] Urea nitrogen/Creatinine [Mass ratio] 14.9 mg/mg 10.0 - 20.0 [facility] Surgical Site Aerobic Cultur eOrdered By: Maria T Matamoros on 04-04-2024 Bacteria identified Aer cx Nom (Unsp spec) Rare growth Staphylococcus epidermidis Abnormal [facility] Interpretation and review of laboratory results Abnormal [facility] Microscopic observation Gram stain Nom (Unsp spec) Many WBC [facility] Microscopic observation Gram stain Nom (Unsp spec) Many RBC [facility] Microscopic observation Gram stain Nom (Unsp spec) No Organisms Seen [facility] CBCon 04-03-2024 AUTO NRBC 0.0 % Normal [facility] Comment on above: Performed By: #### [id number] ####[facility] [address] [place] [address] Abbi Choudhary M.D. [id number] AUTO NRBC ABS COUNT 0.00 K/mcL Normal 0.00-0.00 [facility] Comment on above: Performed By: #### 4 [id number] ####[facility] [address] [place] [address] Abbi Choudhary M.D. [id number] Erythrocyte distribution width (RBC) [Ratio] 13.5 % Normal 11.6-14.8 [facility] Comment on above: Performed By: #### 4 [id number] ####[facility] [address] [place] [address] Abbi Choudhary M.D. [id number] Hematocrit (Bld) [Volume fraction] 26.8 % Low 36.0-46.0 [facility] Comment on above: Performed By: #### 4 [id number] ####[facility] [address] [place] [address] Abbi Choudhray M.D. [id number] Hemoglobin (Bld) [Mass/Vol] 8.8 g/dL Low 12.0-16.0 [facility] Comment on above: Performed By: #### 4 [id number] ####[facility] [address] [place] [address] Abbi Choudhary M.D. [id number] MCH (RBC) [Entitic mass] 31.1 pg Normal 26.0-34.0 [facility] Comment on above: Performed By: #### 4 [id number] ####[facility] [address] [place], [place] [address] Abbi Choudhary M.D. [id number] MCV (RBC) [Entitic vol] 94.7 fL Normal 80.0-100.0 [facility] Comment on above: Performed By: #### 4 [id number] ####[facility] [address] [place], [place] [address] Abbi Choudhary M.D. [id number] MEAN CORPUSCULAR HEMOGLOBIN CONC 32.8 g/dL Normal 31.0-37.0 [facility] Comment on above: Performed By: #### 4 [id number] ####[facility] [address] [place], [place] [address] Abbi Choudhary M.D. [id number] Platelet mean volume (Bld) [Entitic vol] 9.5 fL Normal 9.4-12.4 [facility] Comment on above: Performed By: #### 4 [id number] ####[facility] [address] [place], [place] [address] Abbi Choudhary M.D. [id number] Platelets (Bld) [#/Vol] 277 10*3/uL Normal 150-400 [facility] Comment on above: Performed By: #### 4 [id number] ####[facility] [address] [place], [place] [address] Abbi Choudhary M.D. [id number] RBC (Bld) [#/Vol] 2.83 10*6/uL Low 4.00-5.20 [facility] Comment on above: Performed By: #### 4 [id number] ####[facility] [address] [place], [place] [address] Abbi Choudhary M.D. [id number] WBC (Bld) [#/Vol] 7.63 10*3/uL Normal 4.50-11.00 [facility] Comment on above: Performed By: #### 4 [id number] ####[facility] [address] [place], [place] [address] Abbi hCoudhary M.D. [id number] CBC panel Auto (Bld)on 04-03 Erythrocyte distribution width (RBC) [Entitic vol] 13.5 % 11.6 - 14.8 % [facility] Hematocrit (Bld) [Volume fraction] 26.8 % Low 36.0 - 46.0 % [facility] Hemoglobin (Bld) [Mass/Vol] 8.8 g/dL Low 12.0 - 16.0 g/dL [facility] Interpretation and review of laboratory results Abnormal [facility] MCH (RBC) [Entitic mass] 31.1 pg 26.0 - 34.0 pg [facility] MCHC (RBC) [Mass/Vol] 32.8 g/dL 31.0 - 37.0 g/dL [facility] MCV (RBC) [Entitic vol] 94.7 fL 80.0 - 100.0 fL [facility] Nucleated RBC (Bld) [#/Vol] 0 10*3/uL [facility] Nucleated RBC/100 WBC (Bld) [Ratio] 0 % [facility] Platelet mean volume (Bld) [Entitic vol] 9.5 fL 9.4 - 12.4 fL [facility] Platelets (Bld) [#/Vol] 277 10*3/uL [facility] RBC (Bld) [#/Vol] 2.83 10*6/uL Low [facility] WBC (Bld) [#/Vol] 7.63 10*3/uL [facility] RENAL FUNCTION PANELon 04-03 Albumin [Mass/Vol] 3.2 g/dL Normal 3.2-5.2 [facility] Comment on above: Order Comment: [facility] has implemented the eGFR calculation approach that does not have a coefficient for race that conforms to the NKF-ASN Task Force Recommendations. Performed By: #### 4 [id number] ####[facility] [address] [place], [place] [address] Abbi Choudhary M.D. [id number] Anion gap [Moles/Vol] 11 mmol/L Normal 10- [facility] Comment on above: Order Comment: [facility] has implemented the eGFR calculation approach that does not have a coefficient for race that conforms to the NKF-ASN Task Force Recommendations. Performed By: #### 4 6449 ####[facility] [address] [place], [place] [address] Abbi Choudhary M.D. [id number] Calcium [Mass/Vol] 8.2 mg/dL Low 8.4-10.2 [facility] Comment on above: Order Comment: [facility] has implemented the eGFR calculation approach that does not have a coefficient for race that conforms to the NKF-ASN Task Force Recommendations. Performed By: #### 4 6449 ####[facility] [address] [place], [place] [address] Abbi Choudhary M.D. [id number] Chloride [Moles/Vol] 106 mmol/L Normal 98-108 [facility] Comment on above: Order Comment: [facility] has implemented the eGFR calculation approach that does not have a coefficient for race that conforms to the NKF-ASN Task Force Recommendations. Performed By: #### 4 [id number] ####[facility] [address] [place], [place] [address] Abbi Choudhary M.D. [id number] Creatinine [Mass/Vol] 1.65 mg/dL High 0.40-1.10 [facility] Comment on above: Order Comment: [facility] [employer] has implemented the eGFR calculation approach that does not have a coefficient for race that conforms to the NKF-ASN Task Force Recommendations. Performed By: #### 4 [id number] ####[facility] [address] [place], [place] [address] Abbi Choudhary M.D. [id number] EGFR 39 mL/min/1.73 m2 Low >=60 [facility] Comment on above: Order Comment: [facility] [employer] has implemented the eGFR calculation approach that does not have a coefficient for race that conforms to the NKF-ASN Task Force Recommendations. Result Comment: Lorie mated GFR was calculated using the 2020 CKD-EPI creatinine equation. Performed By: #### 4 [id number] ####[facility] [address] [place], [place] [address] Abbi Choudhary M.D. [id number] Glucose [Mass/Vol] 206 mg/dL High 65-99 [facility] Comment on above: Order Comment: [facility] [employer] has implemented the eGFR calculation approach that does not have a coefficient for race that conforms to the NKF-ASN Task Force Recommendations. Performed By: #### 4 6449 ####[facility] [address] [place], [place] [address] Abbi Choudhary M.D. [id number] HCO3 (Bld) [Moles/Vol] 28 mmol/L Normal 21-32 [facility] Comment on above: Order Comment: [facility] has implemented the eGFR calculation approach that does not have a coefficient for race that conforms to the NKF-ASN Task Force Recommendations. Performed By: #### 4 6449 ####[facility] [address] [place], [place] [address] Abbi Choudhary M.D. [id number] Phosphate [Mass/Vol] 4.4 mg/dL Normal 2.7-4.5 [facility] Comment on above: Order Comment: [facility] [employer] has implemented the eGFR calculation approach that does not have a coefficient for race that conforms to the NKF-ASN Task Force Recommendations. Performed By: #### 4 [id number] ####[facility] [address] [place], [place] [address] Abbi Choudhary M.D. [id number] Potassium [Moles/Vol] 3.7 mmol/L Normal 3.5-5.1 [facility] Comment on above: Order Comment: [facility] [employer] has implemented the eGFR calculation approach that does not have a coefficient for race that conforms to the NKF-ASN Task Force Recommendations. Performed By: #### 4 [id number] ####[facility] [address] [place], [place] [address] Abbi Choudhary M.D. [id number] Sodium [Moles/Vol] 141 mmol/L Normal 135-145 [facility] Comment on above: Order Comment: [facility] [employer] has implemented the eGFR calculation approach that does not have a coefficient for race that conforms to the NKF-ASN Task Force Recommendations. Performed By: #### 4 [id number] ####[facility] [address] [place], [place] [address] Abbi Choudhary M.D. [id number] Urea nitrogen [Mass/Vol] 19 mg/dL Normal 8-25 [facility] Comment on above: Order Comment: [facility] has implemented the eGFR calculation approach that does not have a coefficient for race that conforms to the NKF-ASN Task Force Recommendations. Performed By: #### 4 [id number] ####[facility] [address] [place], [place] [address] Abbi Choudhary M.D. [id number] Urea nitrogen/Creatinine [Mass ratio] 11.5 mg/mg Normal 10.0-20.0 [facility] Comment on above: Order Comment: [facility] has implemented the eGFR calculation approach that does not have a coefficient for race that conforms to the NKF-ASN Task Force Recommendations. Performed By: #### 4 [id number] ####[facility] [address] [place], [place] [address] Abbi Choudhary M.D. [id number] Renal function 2000 [facility] 04-03-2024 Albumin [Mass/Vol] 3.2 g/dL 3.2 - 5.2 g/dL [facility] Anion gap [Moles/Vol] 11 mmol/L 10 - 2 0 mmol/L [facility] Calcium [Mass/Vol] 8.2 mg/dL Low 8.4 - 10. 2 mg/dL [facility] Chloride [Moles/Vol] 106 mmol/L 98 - 10 8 mmol/L [facility] Creatinine [Mass/Vol] 1.65 mg/dL High 0.40 - 1.10 mg/dL [facility] GFR/1.73 sq M.predicted CKD-EPI (S/P/Bld) [Vol rate/Area] 39 Low - PINF [facility] Glucose [Mass/Vol] 206 mg/dL High 65 - 99 mg/dL [facility] HCO3 [Moles/Vol] 28 mmol/L 21 - 32 mmol/L [facility] Interpretation and review of laboratory results Abnormal [facility] Phosphate [Mass/Vol] 4.4 mg/dL 2.7 - 4 .5 mg/dL [facility] Potassium [Moles/Vol] 3.7 mmol/L 3.5 - 5.1 mmol/L [facility] Sodium [Moles/Vol] 141 mmol/L 135 - 145 mmol/L [facility] Urea nitrogen [Mass/Vol] 19 mg/dL 8 - 25 mg/dL [facility] Urea nitrogen/Creatinine [Mass ratio] 11.5 mg/mg 10.0 - 20.0 [facility] NRBC 0.0 % Normal [facility] Comment on above: Performed By: #### 4 [id number] ####[facility] [address] [place], [place] [address] Abbi Choudhary M.D. [id number] AUTO NRBC ABS COUNT 0.00 K/mcL Normal 0.00-0.00 [facility] Comment on above: Performed By: #### 4 [id number] ####[facility] [address] [place] [address] Abbi Choudhary M.D. [id number] Erythrocyte distribution width (RBC) [Ratio] 13.1 % Normal 11.6-14.8 [facility] Comment on above: Performed By: #### 4 [id number] ####[facility] [address] [place] [address] Abbi Choudhary M.D. [id number] Hematocrit (Bld) [Volume fraction] 26.0 % Low 36.0-46.0 [facility] Comment on above: Performed By: #### 4 [id number] ####[facility] [address] [place] [address] Abbi Choudhary M.D. [id number] Hemoglobin (Bld) [Mass/Vol] 8.9 g/dL Low 12.0-16.0 [facility] Comment on above: Performed By: #### 4 [id number] ####[facility] [address] [place], [place] [address] Abbi Choudhary M.D. [id number] MCH (RBC) [Entitic mass] 31.2 pg Normal 26.0-34.0 [facility] Comment on above: Performed By: #### 4 [id number] ####[facility] [address] [place], [place] [address] Abbi Choudhary M.D. [id number] MCV (RBC) [Entitic vol] 91.2 fL Normal 80.0-100.0 [facility] Comment on above: Performed By: #### 4 [id number] ####[facility] [address] [place] [address] Abbi Choudhary M.D. [id number] MEAN CORPUSCULAR HEMOGLOBIN CONC 34.2 g/dL Normal 31.0-37.0 [facility] Comment on above: Performed By: #### 4 [id number] ####[facility] [address] [place], [place] [address] Abbi Choudhary M.D. [id number] Platelet mean volume (Bld) [Entitic vol] 9.2 fL Low 9.4-12.4 [facility] Comment on above: Performed By: #### 4 [id number] ####[facility] [address] [place] [address] Abbi Choudhary M.D. [id number] Platelets (Bld) [#/Vol] 277 10*3/uL Normal 150-400 [facility] Comment on above: Performed By: #### 4 [id number] ####[facility] [address] [place] [address] Abbi Choudhary M.D. [id number] RBC (Bld) [#/Vol] 2.85 10*6/uL Low 4.00-5.20 [facility] Comment on above: Performed By: #### 4 [id number] ####[facility] [address] [place] [address] Abbi Choudhary M.D. [id number] WBC (Bld) [#/Vol] 7.42 10*3/uL Normal 4.50-11.00 [facility] Comment on above: Performed By: #### 4 [id number] ####[facility] [address] [place] [address] Abbi Choudhary M.D. [id number] CBC panel Auto (Bld)on 04-02 Erythrocyte distribution width (RBC) [Entitic vol] 13.1 % 11.6 - 14.8 % [facility] Hematocrit (Bld) [Volume fraction] 26 % Low 36.0 - 46.0 % [facility] Hemoglobin (Bld) [Mass/Vol] 8.9 g/dL Low 12.0 - 16.0 g/dL [facility] Interpretation and review of laboratory results Abnormal [facility] MCH (RBC) [Entitic mass] 31.2 pg 26.0 - 34.0 pg [facility] MCHC (RBC) [Mass/Vol] 34.2 g/dL 31.0 - 37.0 g/dL [facility] MCV (RBC) [Entitic vol] 91.2 fL 80.0 - 100.0 fL [facility] Nucleated RBC (Bld) [#/Vol] 0 10*3/uL [facility] Nucleated RBC/100 WBC (Bld) [Ratio] 0 % [facility] Platelet mean volume (Bld) [Entitic vol] 9.2 fL Low 9.4 - 12.4 fL [facility] Platelets (Bld) [#/Vol] 277 10*3/uL [facility] RBC (Bld) [#/Vol] 2.85 10*6/uL Low [facility] WBC (Bld) [#/Vol] 7.42 10*3/uL [facility] Glucose (Bld) [Mass/Vol]on 06-02-2023 Glucose [Mass/Vol] 239 mg/dL High 65 - 99 mg/dL [facility] Interpretation and review of laboratory results Abnormal [facility] POC GLUCOSE - [facility] 024 Glucose [Mass/Vol] 239 mg/dL High 65-99 [facility] Comment on above: Performed By: #### 4 [id number] ####[facility] [address] [place], [place] [address] Abbi Choudhary M.D. [id number] RENAL FUNCTION PANELon 04-02 Albumin [Mass/Vol] 3.2 g/dL Normal 3.2-5.2 [facility] Comment on above: Order Comment: [facility] has implemented the eGFR calculation approach that does not have a coefficient for race that conforms to the NKF-ASN Task Force Recommendations. Performed By: #### 4 6449 ####[facility] [address] [place], [place] [address] Abbi Choudhary M.D. [id number] Anion gap [Moles/Vol] 11 mmol/L Normal - [facility] Comment on above: Order Comment: [facility] has implemented the eGFR calculation approach that does not have a coefficient for race that conforms to the NKF-ASN Task Force Recommendations. Performed By: #### 4 6449 ####[facility] [address] [place], [place] [address] Abbi Choudhary M.D. [id number] Calcium [Mass/Vol] 8.3 mg/dL Low 8.4-10.2 [facility] Comment on above: Order Comment: [facility] has implemented the eGFR calculation approach that does not have a coefficient for race that conforms to the NKF-ASN Task Force Recommendations. Performed By: #### 4 6449 ####[facility] [address] [place], [place] [address] Abbi Choudhary M.D. [id number] Chloride [Moles/Vol] 107 mmol/L Normal 98-108 [facility] Comment on above: Order Comment: [facility] [employer] has implemented the eGFR calculation approach that does not have a coefficient for race that conforms to the NKF-ASN Task Force Recommendations. Performed By: #### 4 [id number] ####[facility] [address] [place], [place] [address] Abbi Choudhary M.D. [id number] Creatinine [Mass/Vol] 1.63 mg/dL High 0.40-1.10 [facility] Comment on above: Order Comment: [facility] [employer] has implemented the eGFR calculation approach that does not have a coefficient for race that conforms to the NKF-ASN Task Force Recommendations. Performed By: #### 4 6449 ####[facility] [address] [place], [place] [address] Abbi Choudhary M.D. [id number] EGFR 39 mL/min/1.73 m2 Low >=60 [facility] Comment on above: Order Comment: [facility] [employer] has implemented the eGFR calculation approach that does not have a coefficient for race that conforms to the NKF-ASN Task Force Recommendations. Result Comment: Lorie mated GFR was calculated using the 2020 CKD-EPI creatinine equation. Performed By: #### 4 [id number] ####[facility] [address] [place], [place] [address] Abbi Choudhary M.D. [id number] Glucose [Mass/Vol] 233 mg/dL High 65-99 [facility] Comment on above: Order Comment: [facility] [employer] has implemented the eGFR calculation approach that does not have a coefficient for race that conforms to the NKF-ASN Task Force Recommendations. Performed By: #### 4 6449 ####[facility] [address] [place], [place] [address] Abbi Choudhary M.D. [id number] HCO3 (Bld) [Moles/Vol] 29 mmol/L Normal 21-32 [facility] Comment on above: Order Comment: [facility] [employer] has implemented the eGFR calculation approach that does not have a coefficient for race that conforms to the NKF-ASN Task Force Recommendations. Performed By: #### 4 [id number] ####[facility] [address] [place], [place] [address] Abbi Choudhary M.D. [id number] Phosphate [Mass/Vol] 3.8 mg/dL Normal 2.7-4.5 [facility] Comment on above: Order Comment: [facility] [employer] has implemented the eGFR calculation approach that does not have a coefficient for race that conforms to the NKF-ASN Task Force Recommendations. Performed By: #### 4 [id number] ####[facility] [address] [place], [place] [address] Abbi Choudhary M.D. [id number] Potassium [Moles/Vol] 3.7 mmol/L Normal 3.5-5.1 [facility] Comment on above: Order Comment: [facility] [employer] has implemented the eGFR calculation approach that does not have a coefficient for race that conforms to the NKF-ASN Task Force Recommendations. Performed By: #### 4 6449 ####[facility] [address] [place], [place] [address] Abbi Choudhary M.D. [id number] Sodium [Moles/Vol] 143 mmol/L Normal 135-145 [facility] Comment on above: Order Comment: [facility] [employer] has implemented the eGFR calculation approach that does not have a coefficient for race that conforms to the NKF-ASN Task Force Recommendations. Performed By: #### 4 6449 ####[facility] [address] [place], [place] [address] Abbi Choudhary M.D. [id number] Urea nitrogen [Mass/Vol] 14 mg/dL Normal 8-25 [facility] Comment on above: Order Comment: [facility] has implemented the eGFR calculation approach that does not have a coefficient for race that conforms to the NKF-ASN Task Force Recommendations. Performed By: #### 4 6449 ####[facility] [address] [place], [place] [address] Abbi Choudhary M.D. [id number] Urea nitrogen/Creatinine [Mass ratio] 8.6 mg/mg Low 10.0-20.0 [facility] Comment on above: Order Comment: [facility] has implemented the eGFR calculation approach that does not have a coefficient for race that conforms to the NKF-ASN Task Force Recommendations. Performed By: #### 4 [id number] ####[facility] [address] [place], [place] [address] Abbi Choudhary M.D. [id number] Renal function 2000 panelon 04-02-2024 Albumin [Mass/Vol] 3.2 g/dL 3.2 - 5.2 g/dL [facility] Anion gap [Moles/Vol] 11 mmol/L 10 - 2 0 mmol/L [facility] Calcium [Mass/Vol] 8.3 mg/dL Low 8.4 - 10. 2 mg/dL [facility] Chloride [Moles/Vol] 107 mmol/L 98 - 10 8 mmol/L [facility] Creatinine [Mass/Vol] 1.63 mg/dL High 0.40 - 1.10 mg/dL [facility] GFR/1.73 sq M.predicted CKD-EPI (S/P/Bld) [Vol rate/Area] 39 Low - PINF [facility] Glucose [Mass/Vol] 233 mg/dL High 65 - 99 mg/dL [facility] HCO3 [Moles/Vol] 29 mmol/L 21 - 32 mmol/L [facility] Interpretation and review of laboratory results Abnormal [facility] Phosphate [Mass/Vol] 3.8 mg/dL 2.7 - 4 .5 mg/dL [facility] Potassium [Moles/Vol] 3.7 mmol/L 3.5 - 5.1 mmol/L [facility] Sodium [Moles/Vol] 143 mmol/L 135 - 145 mmol/L [facility] Urea nitrogen [Mass/Vol] 14 mg/dL 8 - 25 mg/dL [facility] Urea nitrogen/Creatinine [Mass ratio] 8.6 mg/mg Low 10.0 - 20.0 [facility] XR Foot - left 3 Viewson GE RIS GE RIS [facility] XR Foot - left 3 ViewsOrdere d By: Augustine Mittal on 04-02-2024 [facility] Work Phone: CBCon 04-01-2024 AUTO NRBC 0.0 % Normal [facility] Comment on above: Performed By: #### 4 [id number] ####[facility] [address] [place], [place] [address] Abbi Choudhary M.D. [id number] AUTO NRBC ABS COUNT 0.00 K/mcL Normal 0.00-0.00 [facility] Comment on above: Performed By: #### 4 [id number] ####[facility] [address] [place], [place] [address] Abbi Choudhary M.D. [id number] Erythrocyte distribution width (RBC) [Ratio] 13.0 % Normal 11.6-14.8 [facility] Comment on above: Performed By: #### 4 [id number] ####[facility] [address] [place], [place] [address] Abbi Choudhary M.D. [id number] Hematocrit (Bld) [Volume fraction] 27.2 % Low 36.0-46.0 [facility] Comment on above: Performed By: #### 4 [id number] ####[facility] [address] [place], [place] [address] Abbi Choudhary M.D. [id number] Hemoglobin (Bld) [Mass/Vol] 9.2 g/dL Low 12.0-16.0 [facility] Comment on above: Performed By: #### 4 [id number] ####[facility] [address] [place], [place] [address] Abbi Choudhary M.D. [id number] MCH (RBC) [Entitic mass] 30.9 pg Normal 26.0-34.0 [facility] Comment on above: Performed By: #### 4 [id number] ####[facility] [address] [place], [place] [address] Abbi Choudhary M.D. [id number] MCV (RBC) [Entitic vol] 91.3 fL Normal 80.0-100.0 [facility] Comment on above: Performed By: #### 4 [id number] ####[facility] [address] [place], [place] [address] Abbi Choudhary M.D. [id number] MEAN CORPUSCULAR HEMOGLOBIN CONC 33.8 g/dL Normal 31.0-37.0 [facility] Comment on above: Performed By: #### 4 [id number] ####[facility] [address] [place], [place] [address] Abbi Choudhary M.D. [id number] Platelet mean volume (Bld) [Entitic vol] 8.8 fL Low 9.4-12.4 [facility] Comment on above: Performed By: #### 4 [id number] ####[facility] [address] [place], [place] [address] Abbi Choudhary M.D. [id number] Platelets (Bld) [#/Vol] 252 10*3/uL Normal 150-400 [facility] Comment on above: Performed By: #### 4 [id number] ####[facility] [address] [place], [place] [address] Abbi Choudhary M.D. [id number] RBC (Bld) [#/Vol] 2.98 10*6/uL Low 4.00-5.20 [facility] Comment on above: Performed By: #### 4 [id number] ####[facility] [address] [place], [place] [address] Abbi Choudhary M.D. [id number] WBC (Bld) [#/Vol] 6.99 10*3/uL Normal 4.50-11.00 [facility] Comment on above: Performed By: #### 4 [id number] ####[facility] [address] [place], [place] [address] Abbi Choudhary M.D. [id number] CBC panel Auto (Bld)on 04-01 Erythrocyte distribution width (RBC) [Entitic vol] 13 % 11.6 - 14.8 % [facility] Hematocrit (Bld) [Volume fraction] 27.2 % Low 36.0 - 46.0 % [facility] Hemoglobin (Bld) [Mass/Vol] 9.2 g/dL Low 12.0 - 16.0 g/dL [facility] Interpretation and review of laboratory results Abnormal [facility] MCH (RBC) [Entitic mass] 30.9 pg 26.0 - 34.0 pg [facility] MCHC (RBC) [Mass/Vol] 33.8 g/dL 31.0 - 37.0 g/dL [facility] MCV (RBC) [Entitic vol] 91.3 fL 80.0 - 100.0 fL [facility] Nucleated RBC (Bld) [#/Vol] 0 10*3/uL [facility] Nucleated RBC/100 WBC (Bld) [Ratio] 0 % [facility] Platelet mean volume (Bld) [Entitic vol] 8.8 fL Low 9.4 - 12.4 fL [facility] Platelets (Bld) [#/Vol] 252 10*3/uL [facility] RBC (Bld) [#/Vol] 2.98 10*6/uL Low [facility] WBC (Bld) [#/Vol] 6.99 10*3/uL [facility] CT Foot - left WO contraston 04-01-2024 GE RIS GE RIS [facility] CT Foot - left WO contrastOr dered By: Kavin Duncan on 04-01-2024 [facility] Work Phone: Glucose (Bld) [Mass/Vol]on 1 06-01-2023 Glucose [Mass/Vol] 253 mg/dL High 65 - 99 mg/dL [facility] Interpretation and review of laboratory results Abnormal [facility] Glucose [Mass/Vol] 92 mg/dL 65 - 99 mg/dL [facility] Interpretation and review of laboratory results Normal [facility] OP NOTEon 04-01-2024 OP NOTE Normal [facility] POC GLUCOSE - Micky 024 Glucose [Mass/Vol] 253 mg/dL High 65-99 [facility] Comment on above: Performed By: #### 4 6932 ####[facility] [address] [place] [address] Abbi Choudhary M.D. [id number] Glucose [Mass/Vol] 92 mg/dL Normal 65-99 [facility] Comment on above: Performed By: #### 4 6932 ####[facility] [address] [place], [place] [address] Abbi Choudhary M.D. [id number] RENAL FUNCTION PANELon 04-01 Albumin [Mass/Vol] 3.3 g/dL Normal 3.2-5.2 [facility] Comment on above: Order Comment: [facility] has implemented the eGFR calculation approach that does not have a coefficient for race that conforms to the NKF-ASN Task Force Recommendations. Performed By: #### 4 6449 ####[facility] [address] [place], [place] [address] Abbi Choudhary M.D. [id number] Anion gap [Moles/Vol] 12 mmol/L Normal 10-20 [facility] Comment on above: Order Comment: [facility] has implemented the eGFR calculation approach that does not have a coefficient for race that conforms to the NKF-ASN Task Force Recommendations. Performed By: #### 4 6449 ####[facility] [address] [place], [place] [address] Abbi Choudhary M.D. [id number] Calcium [Mass/Vol] 8.6 mg/dL Normal 8.4-10.2 [facility] Comment on above: Order Comment: [facility] [employer] has implemented the eGFR calculation approach that does not have a coefficient for race that conforms to the NKF-ASN Task Force Recommendations. Performed By: #### 4 6449 ####[facility] [address] [place], [place] [address] Abbi Choudhary M.D. [id number] Chloride [Moles/Vol] 108 mmol/L Normal 98-108 [facility] Comment on above: Order Comment: [facility] has implemented the eGFR calculation approach that does not have a coefficient for race that conforms to the NKF-ASN Task Force Recommendations. Performed By: #### 4 6449 ####[facility] [address] [place], [place] [address] Abbi Choudhary M.D. [id number] Creatinine [Mass/Vol] 1.28 mg/dL High 0.40-1.10 [facility] Comment on above: Order Comment: [facility] has implemented the eGFR calculation approach that does not have a coefficient for race that conforms to the NKF-ASN Task Force Recommendations. Performed By: #### 4 6449 ####[facility] [address] [place], [place] [address] Abbi Choudhary M.D. [id number] EGFR 52 mL/min/1.73 m2 Low >=60 [facility] Comment on above: Order Comment: [facility] has implemented the eGFR calculation approach that does not have a coefficient for race that conforms to the NKF-ASN Task Force Recommendations. Result Comment: Lorie mated GFR was calculated using the 2020 CKD-EPI creatinine equation. Performed By: #### 4 6449 ####[facility] [address] [place], [place] [address] Abbi Choudhary M.D. [id number] Glucose [Mass/Vol] 162 mg/dL High 65-99 [facility] Comment on above: Order Comment: [facility] has implemented the eGFR calculation approach that does not have a coefficient for race that conforms to the NKF-ASN Task Force Recommendations. Performed By: #### 4 6449 ####[facility] [address] [place], [place] [address] Abbi Choudhary M.D. [id number] HCO3 (Bld) [Moles/Vol] 27 mmol/L Normal 21-32 [facility] Comment on above: Order Comment: [facility] [employer] has implemented the eGFR calculation approach that does not have a coefficient for race that conforms to the NKF-ASN Task Force Recommendations. Performed By: #### 4 6449 ####[facility] [address] [place], [place] [address] Abbi Choudhary M.D. [id number] Phosphate [Mass/Vol] 2.8 mg/dL Normal 2.7-4.5 [facility] Comment on above: Order Comment: [facility] has implemented the eGFR calculation approach that does not have a coefficient for race that conforms to the NKF-ASN Task Force Recommendations. Performed By: #### 4 6449 ####[facility] [address] [place], [place] [address] Abbi Choudhary M.D. [id number] Potassium [Moles/Vol] 3.5 mmol/L Normal 3.5-5.1 [facility] Comment on above: Order Comment: [facility] has implemented the eGFR calculation approach that does not have a coefficient for race that conforms to the NKF-ASN Task Force Recommendations. Performed By: #### 4 6449 ####[facility] [address] [place], [place] [address] Abbi Choudhary M.D. [id number] Sodium [Moles/Vol] 143 mmol/L Normal 135-145 [facility] Comment on above: Order Comment: [facility] has implemented the eGFR calculation approach that does not have a coefficient for race that conforms to the NKF-ASN Task Force Recommendations. Performed By: #### 4 6449 ####[facility] [address] [place], [place] [address] Abbi Choudhary M.D. [id number] Urea nitrogen [Mass/Vol] 14 mg/dL Normal 8-25 [facility] Comment on above: Order Comment: [facility] has implemented the eGFR calculation approach that does not have a coefficient for race that conforms to the NKF-ASN Task Force Recommendations. Performed By: #### 4 6449 ####[facility] [address] [place], [place] [address] Abbi Choudhary M.D. [id number] Urea nitrogen/Creatinine [Mass ratio] 10.9 mg/mg Normal 10.0-20.0 [facility] Comment on above: Order Comment: [facility] has implemented the eGFR calculation approach that does not have a coefficient for race that conforms to the NKF-ASN Task Force Recommendations. Performed By: #### 4 6449 ####[facility] [address] [place], [place] [address] Abbi Choudhary M.D. [id number] Renal function 2000 [facility] 04-01-2024 Albumin [Mass/Vol] 3.3 g/dL 3.2 - 5.2 g/dL [facility] Anion gap [Moles/Vol] 12 mmol/L 10 - 2 0 mmol/L [facility] Calcium [Mass/Vol] 8.6 mg/dL 8.4 - 10. 2 mg/dL [facility] Chloride [Moles/Vol] 108 mmol/L 98 - 10 8 mmol/L [facility] Creatinine [Mass/Vol] 1.28 mg/dL High 0.40 - 1.10 mg/dL [facility] GFR/1.73 sq M.predicted CKD-EPI (S/P/Bld) [Vol rate/Area] 52 Low - PINF [facility] Glucose [Mass/Vol] 162 mg/dL High 65 - 99 mg/dL [facility] HCO3 [Moles/Vol] 27 mmol/L 21 - 32 mmol/L [facility] Interpretation and review of laboratory results Abnormal [facility] Phosphate [Mass/Vol] 2.8 mg/dL 2.7 - 4 .5 mg/dL [facility] Potassium [Moles/Vol] 3.5 mmol/L 3.5 - 5.1 mmol/L [facility] Sodium [Moles/Vol] 143 mmol/L 135 - 145 mmol/L [facility] Urea nitrogen [Mass/Vol] 14 mg/dL 8 - 25 mg/dL [facility] Urea nitrogen/Creatinine [Mass ratio] 10.9 mg/mg 10.0 - 20.0 [facility] SURGICAL SITE AEROBIC CULTUR Turner 04-01-2024 SURGICAL SITE AEROBIC CULTURE AEROBIC CULTURE STAPHYLOCOCCUS EPIDERMIDIS Rare growth Staphylococcus epidermidis See susceptibility from same source/same date. GRAM STAIN RESULT Many WBC Many RBC No Organisms Seen Abnormal [facility] Comment on above: Performed By: #### L [id number] ####[facility] [address] [place], [place] [id number] Swapnil Brewer M.D. [id number] TISSUE EXAMon 04-01-2024 TISSUE EXAM Normal [facility] Comment on above: Performed By: #### 4 7015 ####[facility] [address] [place], [place] [address] Abbi Choudhary M.D. [id number] [address] [place] [address] Swapnil Brewer M.D. [id number] Wound Aerobic And Anaerobic CultureOrdered By: Gayla Cook on 04-01-2024 Bacteria identified Aer cx Nom (Unsp spec) No Anaerobic Growth after 5 days [facility] Bacteria identified Aer cx Nom (Unsp spec) Light Growth Staphylococcus aureus Abnormal [facility] Bacteria identified Aer cx Nom (Unsp spec) Light Growth Normal Skin Eric [facility] Interpretation and review of laboratory results Abnormal [facility] Microscopic observation Gram stain Nom (Unsp spec) No WBC Seen [facility] Microscopic observation Gram stain Nom (Unsp spec) No Organisms Seen [facility] XR FOOT LEFT 3+ VIEWS (STAND ILIA)on 04-01-2024 XR FOOT LEFT 3+ VIEWS (STANDARD) Normal [facility] Comment on above: Order Comment: Injur y/Trauma or Illness?:Illness/OtherHow long have you had these symptoms (acute/chronic)?:AcuteReason for exam?:Status post amputation left hallux distal phalanxHistory of cancer?:uSurgeries, chemotherapy, or radiation?:pacemakerType of Exam?:InitialAdditional signs and symptoms?:Status post amputation left hallux distal phalanx XR Foot - left 3 Viewson Radiology Study observation (narrative) [facility] CBCon 03-31-2024 AUTO NRBC 0.0 % Normal [facility] Comment on above: Performed By: #### 4 [id number] ####[facility] [address] [place] [address] Abbi Choudhary M.D. [id number] AUTO NRBC ABS COUNT 0.00 K/mcL Normal 0.00-0.00 [facility] Comment on above: Performed By: #### 4 [id number] ####[facility] [address] [place], [place] [address] Abbi Choudhary M.D. [id number] Erythrocyte distribution width (RBC) [Ratio] 12.6 % Normal 11.6-14.8 [facility] Comment on above: Performed By: #### 4 [id number] ####[facility] [address] [place], [place] [address] Abbi Choudhary M.D. [id number] Hematocrit (Bld) [Volume fraction] 26.9 % Low 36.0-46.0 [facility] Comment on above: Performed By: #### 4 [id number] ####[facility] [address] [place], [place] [address] Abbi Choudhary M.D. [id number] Hemoglobin (Bld) [Mass/Vol] 9.1 g/dL Low 12.0-16.0 [facility] Comment on above: Performed By: #### 4 [id number] ####[facility] [address] [place], [place] [address] Abbi Choudhary M.D. [id number] MCH (RBC) [Entitic mass] 31.8 pg Normal 26.0-34.0 [facility] Comment on above: Performed By: #### 4 [id number] ####[facility] [address] [place], [place] [address] Abbi Choudhary M.D. [id number] MCV (RBC) [Entitic vol] 94.1 fL Normal 80.0-100.0 [facility] Comment on above: Performed By: #### 4 [id number] ####[facility] [address] [place], [place] [address] Abbi Choudhary M.D. [id number] MEAN CORPUSCULAR HEMOGLOBIN CONC 33.8 g/dL Normal 31.0-37.0 [facility] Comment on above: Performed By: #### 4 [id number] ####[facility] [address] [place], [place] [address] Abbi Choudhary M.D. [id number] Platelet mean volume (Bld) [Entitic vol] 9.6 fL Normal 9.4-12.4 [facility] Comment on above: Performed By: #### 4 [id number] ####[facility] [address] [place], [place] [address] Abbi Choudhary M.D. [id number] Platelets (Bld) [#/Vol] 266 10*3/uL Normal 150-400 [facility] Comment on above: Performed By: #### 4 [id number] ####[facility] [address] [place], [place] [address] Abbi Choudhary M.D. [id number] RBC (Bld) [#/Vol] 2.86 10*6/uL Low 4.00-5.20 [facility] Comment on above: Performed By: #### 4 [id number] ####[facility] [address] [place], [place] [address] Abbi Choudhary M.D. [id number] WBC (Bld) [#/Vol] 6.83 10*3/uL Normal 4.50-11.00 [facility] Comment on above: Performed By: #### 4 [id number] ####[facility] [address] [place], [place] [address] Abbi Choudhary M.D. [id number] CBC panel Auto (Bld)on 03-31 Erythrocyte distribution width (RBC) [Entitic vol] 12.6 % 11.6 - 14.8 % [facility] Hematocrit (Bld) [Volume fraction] 26.9 % Low 36.0 - 46.0 % [facility] Hemoglobin (Bld) [Mass/Vol] 9.1 g/dL Low 12.0 - 16.0 g/dL [facility] Interpretation and review of laboratory results Abnormal [facility] MCH (RBC) [Entitic mass] 31.8 pg 26.0 - 34.0 pg [facility] MCHC (RBC) [Mass/Vol] 33.8 g/dL 31.0 - 37.0 g/dL [facility] MCV (RBC) [Entitic vol] 94.1 fL 80.0 - 100.0 fL [facility] Nucleated RBC (Bld) [#/Vol] 0 10*3/uL [facility] Nucleated RBC/100 WBC (Bld) [Ratio] 0 % [facility] Platelet mean volume (Bld) [Entitic vol] 9.6 fL 9.4 - 12.4 fL [facility] Platelets (Bld) [#/Vol] 266 10*3/uL [facility] RBC (Bld) [#/Vol] 2.86 10*6/uL Low [facility] WBC (Bld) [#/Vol] 6.83 10*3/uL [facility]BD[facility]EN PELVIS WITHOUT CO NTRASTon 03-31-2024 CT ABDOMEN PELVIS WITHOUT CONTRAST Normal [facility] Comment on above: Order Comment: Injur y/Trauma or Illness?:Illness/OtherHow long have you had these symptoms (acute/chronic)?:AcuteReason for exam?:Abdominal/flank pain, stone suspectedType of Exam?:InitialAdditional signs and symptoms?:Abdominal/flank pain, stone suspected CT Abdomen and Pelvis WO con traston 03-31-2024 GE RIS GE RIS [facility] Radiology Study observation (narrative) [facility] CT Abdomen and Pelvis WO con trastOrdered By: Lawrence Coronado on 03-31-2024 [facility] Work Phone: CT FOOT LEFT WITHOUT CONTRAS Ton 03-31-2024 CT FOOT LEFT WITHOUT CONTRAST Normal [facility] Comment on above: Order Comment: Injur y/Trauma or Illness?:Illness/OtherHow long have you had these symptoms (acute/chronic)?:AcuteReason for exam?:osteomyelitisType of Exam?:InitialAdditional signs and symptoms?:foot pain CT Foot - left WO contraston 03-31-2024 Radiology Study observation (narrative) [facility] RENAL FUNCTION PANELon 03-31 Albumin [Mass/Vol] 3.1 g/dL Low 3.2-5.2 [facility] Comment on above: Order Comment: [facility] has implemented the eGFR calculation approach that does not have a coefficient for race that conforms to the NKF-ASN Task Force Recommendations. Performed By: #### 4 6449 ####[facility] [address] [place], [place] [address] Abbi Choudhary M.D. [id number] Anion gap [Moles/Vol] 9 mmol/L Low 10-20 [facility] Comment on above: Order Comment: [facility] has implemented the eGFR calculation approach that does not have a coefficient for race that conforms to the NKF-ASN Task Force Recommendations. Performed By: #### 4 6449 ####[facility] [address] [place], [place] [address] Abbi Choudhary M.D. [id number] Calcium [Mass/Vol] 8.9 mg/dL Normal 8.4-10.2 [facility] Comment on above: Order Comment: [facility] has implemented the eGFR calculation approach that does not have a coefficient for race that conforms to the NKF-ASN Task Force Recommendations. Performed By: #### 4 6449 ####[facility] [address] [place], [place] [address] Abbi Choudhary M.D. [id number] Chloride [Moles/Vol] 109 mmol/L High 98-108 [facility] Comment on above: Order Comment: [facility] has implemented the eGFR calculation approach that does not have a coefficient for race that conforms to the NKF-ASN Task Force Recommendations. Performed By: #### 4 6449 ####[facility] [address] [place], [place] [address] Abbi Choudhary M.D. [id number] Creatinine [Mass/Vol] 1.22 mg/dL High 0.40-1.10 [facility] Comment on above: Order Comment: [facility] has implemented the eGFR calculation approach that does not have a coefficient for race that conforms to the NKF-ASN Task Force Recommendations. Performed By: #### 4 6449 ####[facility] [address] [place], [place] [address] Abbi Chuodhary M.D. [id number] EGFR 56 mL/min/1.73 m2 Low >=60 [facility] Comment on above: Order Comment: [facility] has implemented the eGFR calculation approach that does not have a coefficient for race that conforms to the NKF-ASN Task Force Recommendations. Result Comment: Lorie mated GFR was calculated using the 2020 CKD-EPI creatinine equation. Performed By: #### 4 6449 ####[facility] [address] [place], [place] [address] Abbi Choudhary M.D. [id number] Glucose [Mass/Vol] 139 mg/dL High 65-99 [facility] Comment on above: Order Comment: [facility] has implemented the eGFR calculation approach that does not have a coefficient for race that conforms to the NKF-ASN Task Force Recommendations. Performed By: #### 4 6449 ####[facility] [address] [place], [place] [address] Abbi Choudhary M.D. [id number] HCO3 (Bld) [Moles/Vol] 28 mmol/L Normal 21-32 [facility] Comment on above: Order Comment: [facility] has implemented the eGFR calculation approach that does not have a coefficient for race that conforms to the NKF-ASN Task Force Recommendations. Performed By: #### 4 6449 ####[facility] [address] [place], [place] [address] Abbi Choudhary M.D. [id number] Phosphate [Mass/Vol] 2.7 mg/dL Normal 2.7-4.5 [facility] Comment on above: Order Comment: [facility] has implemented the eGFR calculation approach that does not have a coefficient for race that conforms to the NKF-ASN Task Force Recommendations. Performed By: #### 4 6449 ####[facility] [address] [place], [place] [address] Abbi Choudhary M.D. [id number] Potassium [Moles/Vol] 3.4 mmol/L Low 3.5-5.1 [facility] Comment on above: Order Comment: [facility] has implemented the eGFR calculation approach that does not have a coefficient for race that conforms to the NKF-ASN Task Force Recommendations. Performed By: #### 4 6449 ####[facility] [address] [place], [place] [address] Abbi Choudhary M.D. [id number] Sodium [Moles/Vol] 143 mmol/L Normal 135-145 [facility] Comment on above: Order Comment: [facility] has implemented the eGFR calculation approach that does not have a coefficient for race that conforms to the NKF-ASN Task Force Recommendations. Performed By: #### 4 6449 ####[facility] [address] [place], [place] [address] Abbi Choudhary M.D. [id number] Urea nitrogen [Mass/Vol] 20 mg/dL Normal 8-25 [facility] Comment on above: Order Comment: [facility] has implemented the eGFR calculation approach that does not have a coefficient for race that conforms to the NKF-ASN Task Force Recommendations. Performed By: #### 4 6449 ####[facility] [address] [place], [place] [address] Abbi Choudhary M.D. [id number] Urea nitrogen/Creatinine [Mass ratio] 16.4 mg/mg Normal 10.0-20.0 [facility] Comment on above: Order Comment: [facility] has implemented the eGFR calculation approach that does not have a coefficient for race that conforms to the NKF-ASN Task Force Recommendations. Performed By: #### 4 6449 #### LAB [address], [place] [address] Abbi Choudhary M.D. [id number] Renal function 2000 panelon 03-31-2024 Albumin [Mass/Vol] 3.1 g/dL Low 3.2 - 5.2 g/dL [facility] Anion gap [Moles/Vol] 9 mmol/L Low 10 - 2 0 mmol/L [facility] Calcium [Mass/Vol] 8.9 mg/dL 8.4 - 10. 2 mg/dL [facility] Chloride [Moles/Vol] 109 mmol/L High 98 - 10 8 mmol/L [facility] Creatinine [Mass/Vol] 1.22 mg/dL High 0.40 - 1.10 mg/dL [facility] GFR/1.73 sq M.predicted CKD-EPI (S/P/Bld) [Vol rate/Area] 56 Low - PINF [facility] Glucose [Mass/Vol] 139 mg/dL High 65 - 99 mg/dL [facility] HCO3 [Moles/Vol] 28 mmol/L 21 - 32 mmol/L [facility] Interpretation and review of laboratory results Abnormal [facility] Phosphate [Mass/Vol] 2.7 mg/dL 2.7 - 4 .5 mg/dL [facility] Potassium [Moles/Vol] 3.4 mmol/L Low 3.5 - 5.1 mmol/L [facility] Sodium [Moles/Vol] 143 mmol/L 135 - 145 mmol/L [facility] Urea nitrogen [Mass/Vol] 20 mg/dL 8 - 25 mg/dL [facility] Urea nitrogen/Creatinine [Mass ratio] 16.4 mg/mg 10.0 - 20.0 [facility] Bacteria identified Cx Nom ( Bld)on 03-30-2024 Interpretation and review of laboratory results Normal [facility] CBCon 03-30-2024 AUTO NRBC 0.0 % Normal [facility] Comment on above: Performed By: #### 4 [id number] ####[facility] [address], [place] [address] Abbi Choudhary M.D. [id number] AUTO NRBC ABS COUNT 0.00 K/mcL Normal 0.00-0.00 [facility] Comment on above: Performed By: #### 4 [id number] ####[facility] [address], [place] [address] Abbi Choudhary M.D. [id number] Erythrocyte distribution width (RBC) [Ratio] 12.6 % Normal 11.6-14.8 [facility] Comment on above: Performed By: #### 4 [id number] ####[facility] [address], [place] [address] Abbi Choudhary M.D. [id number] Hematocrit (Bld) [Volume fraction] 29.7 % Low 36.0-46.0 [facility] Comment on above: Performed By: #### 4 [id number] ####[facility] [address], [place] [address] Abbi Choudhary M.D. [id number] Hemoglobin (Bld) [Mass/Vol] 9.4 g/dL Low 12.0-16.0 [facility] Comment on above: Performed By: #### 4 [id number] ####[facility] [address], [place] [address] Abbi Choudhary M.D. [id number] MCH (RBC) [Entitic mass] 30.2 pg Normal 26.0-34.0 [facility] Comment on above: Performed By: #### 4 [id number] ####[facility] [address], [place] [address] Abbi Choudhary M.D. [id number] MCV (RBC) [Entitic vol] 95.5 fL Normal 80.0-100.0 [facility] Comment on above: Performed By: #### 4 [id number] ####[facility] [address], [place] [address] Abbi Choudhary M.D. [id number] MEAN CORPUSCULAR HEMOGLOBIN CONC 31.6 g/dL Normal 31.0-37.0 [facility] Comment on above: Performed By: #### 4 [id number] ####[facility] [address], [place] [address] Abbi Choudhary M.D. [id number] Platelet mean volume (Bld) [Entitic vol] 9.6 fL Normal 9.4-12.4 [facility] Comment on above: Performed By: #### 4 [id number] ####[facility] [address], [place] [address] Abbi Choudhary M.D. [id number] Platelets (Bld) [#/Vol] 263 10*3/uL Normal 150-400 [facility] Comment on above: Performed By: #### 4 [id number] ####[facility] [address], [place] [address] Abbi Choudhary M.D. [id number] RBC (Bld) [#/Vol] 3.11 10*6/uL Low 4.00-5.20 [facility] Comment on above: Performed By: #### 4 [id number] ####[facility] [address], [place] [address] Abbi Choudhary M.D. [id number] WBC (Bld) [#/Vol] 6.90 10*3/uL Normal 4.50-11.00 [facility] Comment on above: Performed By: #### 4 [id number] ####[facility] [address], [place] [address] Abbi Choudhary M.D. [id number] CBC panel Auto (Bld)on 03-30 Erythrocyte distribution width (RBC) [Entitic vol] 12.6 % 11.6 - 14.8 % [facility] Hematocrit (Bld) [Volume fraction] 29.7 % Low 36.0 - 46.0 % [facility] Hemoglobin (Bld) [Mass/Vol] 9.4 g/dL Low 12.0 - 16.0 g/dL [facility] Interpretation and review of laboratory results Abnormal [facility] MCH (RBC) [Entitic mass] 30.2 pg 26.0 - 34.0 pg [facility] MCHC (RBC) [Mass/Vol] 31.6 g/dL 31.0 - 37.0 g/dL [facility] MCV (RBC) [Entitic vol] 95.5 fL 80.0 - 100.0 fL [facility] Nucleated RBC (Bld) [#/Vol] 0 10*3/uL [facility] Nucleated RBC/100 WBC (Bld) [Ratio] 0 % [facility] Platelet mean volume (Bld) [Entitic vol] 9.6 fL 9.4 - 12.4 fL [facility] Platelets (Bld) [#/Vol] 263 10*3/uL [facility] RBC (Bld) [#/Vol] 3.11 10*6/uL Low [facility] WBC (Bld) [#/Vol] 6.9 10*3/uL [place] [facility] CONSULTon 03-30-2024 CONSULT Normal [facility] Glucose (Bld) [Mass/Vol]on 05-30-2023 Glucose [Mass/Vol] 250 mg/dL High 65 - 99 mg/dL [facility] Interpretation and review of laboratory results Abnormal [facility] Glucose [Mass/Vol] 102 mg/dL High 65 - 99 mg/dL [facility] Interpretation and review of laboratory results Abnormal [facility] Glucose [Mass/Vol] 183 mg/dL High 65 - 99 mg/dL [facility] Interpretation and review of laboratory results Abnormal [facility] Glucose [Mass/Vol] 285 mg/dL High 65 - 99 mg/dL [facility] Interpretation and review of laboratory results Abnormal [facility] - Microbiology an d Antimicrobial susceptibilityon 03-30-2024 Bacteria identified Cx Nom (Bld) No Growth after 5 days [facility] POC GLUCOSE - [facility] 024 Glucose [Mass/Vol] 250 mg/dL [address] Comment on above: Performed By: #### 4 [id number] ####[facility] [address], [place] [address] Abbi Choudhary M.D. [id number] Glucose [Mass/Vol] 102 mg/dL [address] Comment on above: Performed By: #### 4 [id number] ####[facility] [address], [place] [address] Abbi Choudhary M.D. [id number] Glucose [Mass/Vol] 183 mg/dL [address] Comment on above: Performed By: #### 4 [id number] ####[facility] [address], [place] [address] Abbi Choudhary M.D. [id number] Glucose [Mass/Vol] 285 mg/dL [place] [address] [facility] Comment on above: Performed By: #### 4 6932 ####[facility] [address], [place] [address] Abbi Choudhary M.D. [id number] RENAL FUNCTION PANELon 03-30 Albumin [Mass/Vol] 3.3 g/dL Normal 3.2-5.2 [facility] Comment on above: Order Comment: [facility] has implemented the eGFR calculation approach that does not have a coefficient for race that conforms to the NKF-ASN Task Force Recommendations. Performed By: #### 4 6449 ####[facility] [address] [place], [place] [address] Abbi Choudhary M.D. [id number] Anion gap [Moles/Vol] 11 mmol/L Normal 10-20 [facility] Comment on above: Order Comment: [facility] has implemented the eGFR calculation approach that does not have a coefficient for race that conforms to the NKF-ASN Task Force Recommendations. Performed By: #### 4 6449 ####[facility] [address] [place], [place] [address] Abbi Choudhary M.D. [id number] Calcium [Mass/Vol] 9.1 mg/dL Normal 8.4-10.2 [facility] Comment on above: Order Comment: [facility] has implemented the eGFR calculation approach that does not have a coefficient for race that conforms to the NKF-ASN Task Force Recommendations. Performed By: #### 4 6449 ####[facility] [address] [place], [place] [address] Abbi Choudhary M.D. [id number] Chloride [Moles/Vol] 108 mmol/L Normal 98-108 [facility] Comment on above: Order Comment: [facility] has implemented the eGFR calculation approach that does not have a coefficient for race that conforms to the NKF-ASN Task Force Recommendations. Performed By: #### 4 6449 ####[facility] [address] [place], [place] [address] Abbi Choudhary M.D. [id number] Creatinine [Mass/Vol] 1.67 mg/dL High 0.40-1.10 [facility] Comment on above: Order Comment: [facility] has implemented the eGFR calculation approach that does not have a coefficient for race that conforms to the NKF-ASN Task Force Recommendations. Performed By: #### 4 6449 ####[facility] [address], [place] [address] Abbi Choudhary M.D. [id number] EGFR 38 mL/min/1.73 m2 Low >=60 [facility] Comment on above: Order Comment: [facility] has implemented the eGFR calculation approach that does not have a coefficient for race that conforms to the NKF-ASN Task Force Recommendations. Result Comment: Lorie mated GFR was calculated using the 2020 CKD-EPI creatinine equation. Performed By: #### 4 [id number] ####[facility] [address], [place] [address]Alisia Choudhary M.D. [id number] Glucose [Mass/Vol] 301 mg/dL High 65-99 [facility] Comment on above: Order Comment: [facility] has implemented the eGFR calculation approach that does not have a coefficient for race that conforms to the NKF-ASN Task Force Recommendations. Performed By: #### 4 6449 ####[facility] [address], [place] [address] Abbi Choudhary M.D. [id number] HCO3 (Bld) [Moles/Vol] 24 mmol/L Normal 21-32 [facility] Comment on above: Order Comment: [facility] has implemented the eGFR calculation approach that does not have a coefficient for race that conforms to the NKF-ASN Task Force Recommendations. Performed By: #### 4 6449 ####[facility] [address], [place] [address] Abbi Choudhary M.D. [id number] Phosphate [Mass/Vol] 3.0 mg/dL Normal 2.7-4.5 [facility] Comment on above: Order Comment: [facility] has implemented the eGFR calculation approach that does not have a coefficient for race that conforms to the NKF-ASN Task Force Recommendations. Performed By: #### 4 6449 ####[facility] [address], [place] [address] Abbi Choudhary M.D. [id number] Potassium [Moles/Vol] 4.1 mmol/L Normal 3.5-5.1 [facility] Comment on above: Order Comment: [facility] has implemented the eGFR calculation approach that does not have a coefficient for race that conforms to the NKF-ASN Task Force Recommendations. Performed By: #### 4 6449 ####[facility] [address], [place] [address] Abbi Choudhary M.D. [id number] Sodium [Moles/Vol] 139 mmol/L Normal 135-145 [facility] Comment on above: Order Comment: [facility] has implemented the eGFR calculation approach that does not have a coefficient for race that conforms to the NKF-ASN Task Force Recommendations. Performed By: #### 4 [id number] ####[facility] [address], [place] [address] Abbi Choudhary M.D. [id number] Urea nitrogen [Mass/Vol] 29 mg/dL High 8-25 [facility] Comment on above: Order Comment: [facility] has implemented the eGFR calculation approach that does not have a coefficient for race that conforms to the NKF-ASN Task Force Recommendations. Performed By: #### 4 6449 ####[facility] [address], [place] [address] Abbi Choudhary M.D. [id number] Urea nitrogen/Creatinine [Mass ratio] 17.4 mg/mg Normal 10.0-20.0 [facility] Comment on above: Order Comment: [facility] has implemented the eGFR calculation approach that does not have a coefficient for race that conforms to the NKF-ASN Task Force Recommendations. Performed By: #### 4 6449 ####[facility] [address] [place], [place] [address] Abbi Choudhary M.D. [id number] Renal function 2000 [facility] 03-30-2024 Albumin [Mass/Vol] 3.3 g/dL 3.2 - 5.2 g/dL [facility] Anion gap [Moles/Vol] 11 mmol/L 10 - 2 0 mmol/L [facility] Calcium [Mass/Vol] 9.1 mg/dL 8.4 - 10. 2 mg/dL [facility] Chloride [Moles/Vol] 108 mmol/L 98 - 10 8 mmol/L [facility] Creatinine [Mass/Vol] 1.67 mg/dL High 0.40 - 1.10 mg/dL [facility] GFR/1.73 sq M.predicted CKD-EPI (S/P/Bld) [Vol rate/Area] 38 Low - PINF [facility] Glucose [Mass/Vol] 301 mg/dL High 65 - 99 mg/dL [facility] HCO3 [Moles/Vol] 24 mmol/L 21 - 32 mmol/L [facility] Interpretation and review of laboratory results Abnormal [facility] Phosphate [Mass/Vol] 3 mg/dL 2.7 - 4 .5 mg/dL [facility] Potassium [Moles/Vol] 4.1 mmol/L 3.5 - 5.1 mmol/L [facility] Sodium [Moles/Vol] 139 mmol/L 135 - 145 mmol/L [facility] Urea nitrogen [Mass/Vol] 29 mg/dL High 8 - 25 mg/dL [facility] Urea nitrogen/Creatinine [Mass ratio] 17.4 mg/mg 10.0 - 20.0 [facility] Wound Aerobic And Anaerobic CultureOrdered By: Zayda Smith on 03-30-2024 Bacteria identified Aer cx Nom (Unsp spec[facility] Nom (Unsp spec) Few WBC [facility] Microscopic observation Gram stain Nom (Unsp spec) Many RBC [facility] Microscopic observation Gram stain Nom (Unsp spec) No Organisms Seen [facility] CBCon 03-29-2024 AUTO NRBC 0.0 % Normal [facility] Comment on above: Performed By: #### 4 [id number] ####[facility] [address], [place] [address] Abbi Choudhary M.D. [id number] AUTO NRBC ABS COUNT 0.00 K/mcL Normal 0.00-0.00 [facility] Comment on above: Performed By: #### 4 [id number] ####[facility] [address], [place] [address] Abbi Choudhary M.D. [id number] Erythrocyte distribution width (RBC) [Ratio] 12.7 % Normal 11.6-14.8 [facility] Comment on above: Performed By: #### 4 [id number] ####[facility] [address], [place] [address] Abbi Choudhary M.D. [id number] Hematocrit (Bld) [Volume fraction] 28.0 % Low 36.0-46.0 [facility] Comment on above: Performed By: #### 4 [id number] ####[facility] [address], [place] [address] Abbi Choudhary M.D. [id number] Hemoglobin (Bld) [Mass/Vol] 8.8 g/dL Low 12.0-16.0 [facility] Comment on above: Performed By: #### 4 [id number] ####[facility] [address], [place] [address] Abbi Choudhary M.D. [id number] MCH (RBC) [Entitic mass] 30.6 pg Normal 26.0-34.0 [facility] Comment on above: Performed By: #### 4 [id number] ####[facility] [address], [place] [address] Abbi Choudhary M.D. [id number] MCV (RBC) [Entitic vol] 97.2 fL Normal 80.0-100.0 [facility] Comment on above: Performed By: #### 4 [id number] ####[facility] [address], [place] [address] Abbi Choudhary M.D. [id number] MEAN CORPUSCULAR HEMOGLOBIN CONC 31.4 g/dL Normal 31.0-37.0 [facility] Comment on above: Performed By: #### 4 [id number] ####[facility] [address], [place] [address] Abbi Choudhary M.D. [id number] Platelet mean volume (Bld) [Entitic vol] 9.5 fL Normal 9.4-12.4 [facility] Comment on above: Performed By: #### 4 [id number] ####[facility] [address], [place] [address] Abbi Choudhary M.D. [id number] Platelets (Bld) [#/Vol] 264 10*3/uL Normal 150-400 [facility] Comment on above: Performed By: #### 4 [id number] ####[facility] [address], [place] [address] Abbi Choudhary M.D. [id number] RBC (Bld) [#/Vol] 2.88 10*6/uL Low 4.00-5.20 [facility] Comment on above: Performed By: #### 4 [id number] ####[facility] [address], [place] [address] Abbi Choudhary M.D. [id number] WBC (Bld) [#/Vol] 7.18 10*3/uL Normal 4.50-11.00 [facility] Comment on above: Performed By: #### 4 [id number] ####[facility] [address], [place] [address] Abbi Choudhary M.D. [id number] CBC panel Auto (Bld)on 03-29 Erythrocyte distribution width (RBC) [Entitic vol] 12.7 % 11.6 - 14.8 % [facility] Hematocrit (Bld) [Volume fraction] 28 % Low 36.0 - 46.0 % [facility] Hemoglobin (Bld) [Mass/Vol] 8.8 g/dL Low 12.0 - 16.0 g/dL [facility] Interpretation and review of laboratory results Abnormal [facility] MCH (RBC) [Entitic mass] 30.6 pg 26.0 - 34.0 pg [facility] MCHC (RBC) [Mass/Vol] 31.4 g/dL 31.0 - 37.0 g/dL [facility] MCV (RBC) [Entitic vol] 97.2 fL 80.0 - 100.0 fL [facility] Nucleated RBC (Bld) [#/Vol] 0 10*3/uL [facility] Nucleated RBC/100 WBC (Bld) [Ratio] 0 % [facility] Platelet mean volume (Bld) [Entitic vol] 9.5 fL 9.4 - 12.4 fL [facility] Platelets (Bld) [#/Vol] 264 10*3/uL [facility] RBC (Bld) [#/Vol] 2.88 10*6/uL Low [facility] WBC (Bld) [#/Vol] 7.18 10*3/uL [facility] Glucose (Bld) [Mass/Vol]on 05-29-2023 Glucose [Mass/Vol] 245 mg/dL High 65 - 99 mg/dL [facility] Interpretation and review of laboratory results Abnormal [facility] Glucose [Mass/Vol] 172 mg/dL High 65 - 99 mg/dL [facility] Interpretation and review of laboratory results Abnormal [facility] Glucose [Mass/Vol] 177 mg/dL High 65 - 99 mg/dL [facility] Interpretation and review of laboratory results Abnormal [facility] Glucose [Mass/Vol] 186 mg/dL High 65 - 99 mg/dL [facility] Interpretation and review of laboratory results Abnormal [facility] Glucose [Mass/Vol] 268 mg/dL High 65 - 99 mg/dL [facility] Interpretation and review of laboratory results Abnormal [facility] POC GLUCOSE - [facility] 024 Glucose [Mass/Vol] 245 mg/dL [address] Comment on above: Performed By: #### 4 [id number] ####[facility] [address] [place], [place] [address] Abbi Choudhary M.D. [id number] Glucose [Mass/Vol] 172 mg/dL [address] Comment on above: Performed By: #### 4 [id number] ####[facility] [address] [place], [place] [address] Abbi Choudhary M.D. [id number] Glucose [Mass/Vol] 177 mg/dL [address] Comment on above: Performed By: #### 4 [id number] ####[facility] [address] [place], [place] [address] Abbi Choudhary M.D. [id number] Glucose [Mass/Vol] 186 mg/dL [address] Comment on above: Performed By: #### 4 6932 ####[facility] [address] [place], [place] [address] Abbi Chuodhary M.D. [id number] Glucose [Mass/Vol] 268 mg/dL [address] Comment on above: Performed By: #### 4 6932 ####[facility] [address] [place], [place] [address] Abbi Choudhary M.D. [id number] RENAL FUNCTION PANELon 03-29 Albumin [Mass/Vol] 3.0 g/dL Low 3.2-5.2 [facility] Comment on above: Order Comment: [facility] has implemented the eGFR calculation approach that does not have a coefficient for race that conforms to the NKF-ASN Task Force Recommendations. Performed By: #### 4 6449 ####[facility] [address] [place], [place] [address] Abbi Choudhary M.D. [id number] Anion gap [Moles/Vol] 14 mmol/L Normal 10-20 [facility] Comment on above: Order Comment: [facility] has implemented the eGFR calculation approach that does not have a coefficient for race that conforms to the NKF-ASN Task Force Recommendations. Performed By: #### 4 6449 ####[facility] [address] [place], [place] [address] Abbi Choudhary M.D. [id number] Calcium [Mass/Vol] 8.7 mg/dL Normal 8.4-10.2 [facility] Comment on above: Order Comment: [facility] has implemented the eGFR calculation approach that does not have a coefficient for race that conforms to the NKF-ASN Task Force Recommendations. Performed By: #### 4 6449 ####[facility] [address] [place], [place] [address] Abbi Choudhary M.D. [id number] Chloride [Moles/Vol] 108 mmol/L Normal 98-108 [facility] Comment on above: Order Comment: [facility] has implemented the eGFR calculation approach that does not have a coefficient for race that conforms to the NKF-ASN Task Force Recommendations. Performed By: #### 4 6449 ####[facility] [address] [place], [place] [address] Abbi Choudhary M.D. [id number] Creatinine [Mass/Vol] 2.19 mg/dL High 0.40-1.10 [facility] Comment on above: Order Comment: [facility] has implemented the eGFR calculation approach that does not have a coefficient for race that conforms to the NKF-ASN Task Force Recommendations. Performed By: #### 4 6449 ####[facility] [address] [place], [place] [address] Abbi Choudhary M.D. [id number] EGFR 28 mL/min/1.73 m2 Low >=60 [facility] Comment on above: Order Comment: [facility] has implemented the eGFR calculation approach that does not have a coefficient for race that conforms to the NKF-ASN Task Force Recommendations. Result Comment: Lorie mated GFR was calculated using the 2020 CKD-EPI creatinine equation. Performed By: #### 4 [id number] ####[facility] [address] [place], [place] [address] Abbi Choudhary M.D. [id number] Glucose [Mass/Vol] 288 mg/dL High 65-99 [facility] Comment on above: Order Comment: [facility] has implemented the eGFR calculation approach that does not have a coefficient for race that conforms to the NKF-ASN Task Force Recommendations. Performed By: #### 4 6449 ####[facility] [address] [place], [place] [address] Abbi Choudhary M.D. [id number] HCO3 (Bld) [Moles/Vol] 20 mmol/L Low 21-32 [facility] Comment on above: Order Comment: [facility] has implemented the eGFR calculation approach that does not have a coefficient for race that conforms to the NKF-ASN Task Force Recommendations. Performed By: #### 4 6449 ####[facility] [address] [place], [place] [address] Abbi Choudhary M.D. [id number] Phosphate [Mass/Vol] 4.1 mg/dL Normal 2.7-4.5 [facility] Comment on above: Order Comment: [facility] has implemented the eGFR calculation approach that does not have a coefficient for race that conforms to the NKF-ASN Task Force Recommendations. Performed By: #### 4 6449 ####[facility] [address] [place], [place] [address] Abbi Choudhary M.D. [id number] Potassium [Moles/Vol] 4.8 mmol/L Normal 3.5-5.1 [facility] Comment on above: Order Comment: [facility] has implemented the eGFR calculation approach that does not have a coefficient for race that conforms to the NKF-ASN Task Force Recommendations. Performed By: #### 4 6449 ####[facility] [address] [place], [place] [address] Abbi Choudhary M.D. [id number] Sodium [Moles/Vol] 137 mmol/L Normal 135-145 [facility] Comment on above: Order Comment: [facility] has implemented the eGFR calculation approach that does not have a coefficient for race that conforms to the NKF-ASN Task Force Recommendations. Performed By: #### 4 [id number] ####[facility] [address] [place] [address] Abbi Choudhary M.D. [id number] Urea nitrogen [Mass/Vol] 36 mg/dL High 8-25 [facility] Comment on above: Order Comment: [facility] has implemented the eGFR calculation approach that does not have a coefficient for race that conforms to the NKF-ASN Task Force Recommendations. Performed By: #### 4 [id number] ####[facility] [address] [place], [place] [address] Abbi Choudhary M.D. [id number] Urea nitrogen/Creatinine [Mass ratio] 16.4 mg/mg Normal 10.0-20.0 [facility] Comment on above: Order Comment: [facility] has implemented the eGFR calculation approach that does not have a coefficient for race that conforms to the NKF-ASN Task Force Recommendations. Performed By: #### 4 [id number] ####[facility] [address] [place], [place] [address] Abbi Choudhary M.D. [id number] Renal function 2000 panelon 03-29-2024 Albumin [Mass/Vol] 3 g/dL Low 3.2 - 5.2 g/dL [facility] Anion gap [Moles/Vol] 14 mmol/L 10 - 2 0 mmol/L [facility] Calcium [Mass/Vol] 8.7 mg/dL 8.4 - 10. 2 mg/dL [facility] Chloride [Moles/Vol] 108 mmol/L 98 - 10 8 mmol/L [facility] Creatinine [Mass/Vol] 2.19 mg/dL High 0.40 - 1.10 mg/dL [facility] GFR/1.73 sq M.predicted CKD-EPI (S/P/Bld) [Vol rate/Area] 28 Low - PINF [facility] Glucose [Mass/Vol] 288 mg/dL High 65 - 99 mg/dL [facility] HCO3 [Moles/Vol] 20 mmol/L Low 21 - 32 mmol/L [facility] Interpretation and review of laboratory results Abnormal [facility] Phosphate [Mass/Vol] 4.1 mg/dL 2.7 - 4 .5 mg/dL [facility] Potassium [Moles/Vol] 4.8 mmol/L 3.5 - 5.1 mmol/L [facility] Sodium [Moles/Vol] 137 mmol/L 135 - 145 mmol/L [facility] Urea nitrogen [Mass/Vol] 36 mg/dL High 8 - 25 mg/dL [facility] Urea nitrogen/Creatinine [Mass ratio] 16.4 mg/mg 10.0 - 20.0 [facility] CBCon 03-28-2024 AUTO NRBC 0.0 % Normal [facility] Comment on above: Performed By: #### 4 [id number] ####[facility] [address] [place], [place] [address] Abbi Choudhary M.D. [id number] AUTO NRBC ABS COUNT 0.00 K/mcL Normal 0.00-0.00 [facility] Comment on above: Performed By: #### 4 [id number] ####[facility] [address] [place], [place] [address] Abbi Choudhary M.D. [id number] Erythrocyte distribution width (RBC) [Ratio] 13.1 % Normal 11.6-14.8 [facility] Comment on above: Performed By: #### 4 [id number] ####[facility] [address] [place], [place] [address] Abbi Choudhary M.D. [id number] Hematocrit (Bld) [Volume fraction] 29.5 % Low 36.0-46.0 [facility] Comment on above: Performed By: #### 4 [id number] ####[facility] [address] [place], [place] [address] Abbi Choudhary M.D. [id number] Hemoglobin (Bld) [Mass/Vol] 9.2 g/dL Low 12.0-16.0 [facility] Comment on above: Performed By: #### 4 [id number] ####[facility] [address] [place], [place] [address] Abbi Choudhary M.D. [id number] MCH (RBC) [Entitic mass] 30.8 pg Normal 26.0-34.0 [facility] Comment on above: Performed By: #### 4 [id number] ####[facility] [address] [place], [place] [address] Abbi Choudhary M.D. [id number] MCV (RBC) [Entitic vol] 98.7 fL Normal 80.0-100.0 [facility] Comment on above: Performed By: #### 4 [id number] ####[facility] [address] [place], [place] [address] Abbi Choudhary M.D. [id number] MEAN CORPUSCULAR HEMOGLOBIN CONC 31.2 g/dL Normal 31.0-37.0 [facility] Comment on above: Performed By: #### 4 [id number] ####[facility] [address] [place], [place] [address] Abbi Choudhary M.D. [id number] Platelet mean volume (Bld) [Entitic vol] 9.4 fL Normal 9.4-12.4 [facility] Comment on above: Performed By: #### 4 [id number] ####[facility] [address] [place], [place] [address] Abbi Choudhary M.D. [id number] Platelets (Bld) [#/Vol] 282 10*3/uL Normal 150-400 [facility] Comment on above: Performed By: #### 4 [id number] ####[facility] [address] [place], [place] [address] Abbi Choudhary M.D. [id number] RBC (Bld) [#/Vol] 2.99 10*6/uL Low 4.00-5.20 [facility] Comment on above: Performed By: #### 4 [id number] ####[facility] [address] [place], [place] [address] Abbi Choudhary M.D. [id number] WBC (Bld) [#/Vol] 7.07 10*3/uL Normal 4.50-11.00 [facility] Comment on above: Performed By: #### 4 [id number] ####[facility] [address] [place], [place] [address] Abbi Choudhary M.D. [id number] CBC panel Auto (Bld)on 03-28 Erythrocyte distribution width (RBC) [Entitic vol] 13.1 % 11.6 - 14.8 % [facility] Hematocrit (Bld) [Volume fraction] 29.5 % Low 36.0 - 46.0 % [facility] Hemoglobin (Bld) [Mass/Vol] 9.2 g/dL Low 12.0 - 16.0 g/dL [facility] Interpretation and review of laboratory results Abnormal [facility] MCH (RBC) [Entitic mass] 30.8 pg 26.0 - 34.0 pg [facility] MCHC (RBC) [Mass/Vol] 31.2 g/dL 31.0 - 37.0 g/dL [facility] MCV (RBC) [Entitic vol] 98.7 fL 80.0 - 100.0 fL [facility] Nucleated RBC (Bld) [#/Vol] 0 10*3/uL [facility] Nucleated RBC/100 WBC (Bld) [Ratio] 0 % [facility] Platelet mean volume (Bld) [Entitic vol] 9.4 fL 9.4 - 12.4 fL [facility] Platelets (Bld) [#/Vol] 282 10*3/uL [facility] RBC (Bld) [#/Vol] 2.99 10*6/uL Low [facility] WBC (Bld) [#/Vol] 7.07 10*3/uL [facility] Glucose (Bld) [Mass/Vol]on 05-28-2023 Glucose [Mass/Vol] 170 mg/dL High 65 - 99 mg/dL [facility] Interpretation and review of laboratory results Abnormal [facility] Glucose [Mass/Vol] 226 mg/dL High 65 - 99 mg/dL [facility] Interpretation and review of laboratory results Abnormal [facility] Glucose [Mass/Vol] 248 mg/dL High 65 - 99 mg/dL [facility] Interpretation and review of laboratory results Abnormal [facility] Glucose [Mass/Vol] 275 mg/dL High 65 - 99 mg/dL [facility] Interpretation and review of laboratory results Abnormal [facility] Glucose [Mass/Vol] 274 mg/dL High 65 - 99 mg/dL [facility] Interpretation and review of laboratory results Abnormal [facility] POC GLUCOSE - [facility] 024 Glucose [Mass/Vol] 170 mg/dL High 65-99 [facility] Comment on above: Performed By: #### 4 6932 ####[facility] [address] [place], [place] [address] Abbi Choudhary M.D. [id number] Glucose [Mass/Vol] 226 mg/dL [address] Comment on above: Performed By: #### 4 6932 ####[facility] [address] [place], [place] [address] Abbi Choudhary M.D. [id number] Glucose [Mass/Vol] 248 mg/dL [address] Comment on above: Performed By: #### 4 [id number] ####[facility] [address] [place], [place] [address] Abbi Choudhary M.D. [id number] Glucose [Mass/Vol] 274 mg/dL [address] Comment on above: Performed By: #### 4 6932 ####[facility] [address] [place], [place] [address] Abbi Choudhary M.D. [id number] RENAL FUNCTION PANEL 03-28 Albumin [Mass/Vol] 3.3 g/dL Normal 3.2-5.2 [facility] Comment on above: Order Comment: [facility] has implemented the eGFR calculation approach that does not have a coefficient for race that conforms to the NKF-ASN Task Force Recommendations. Performed By: #### 4 6449 ####[facility] [address] [place], [place] [address] Abbi Choudhary M.D. [id number] Anion gap [Moles/Vol] 15 mmol/L Normal 10-20 [facility] Comment on above: Order Comment: [facility] has implemented the eGFR calculation approach that does not have a coefficient for race that conforms to the NKF-ASN Task Force Recommendations. Performed By: #### 4 6449 ####[facility] [address] [place], [place] [address] Abbi Choudhary M.D. [id number] Calcium [Mass/Vol] 8.5 mg/dL Normal 8.4-10.2 [facility] Comment on above: Order Comment: [facility] [employer] has implemented the eGFR calculation approach that does not have a coefficient for race that conforms to the NKF-ASN Task Force Recommendations. Performed By: #### 4 [id number] ####[facility] [address] [place], [place] [address] Abbi Choudhary M.D. [id number] Chloride [Moles/Vol] 107 mmol/L Normal 98-108 [facility] Comment on above: Order Comment: [facility] [employer] has implemented the eGFR calculation approach that does not have a coefficient for race that conforms to the NKF-ASN Task Force Recommendations. Performed By: #### 4 6449 ####[facility] [address] [place], [place] [address] Abbi Choudhary M.D. [id number] Creatinine [Mass/Vol] 2.47 mg/dL High 0.40-1.10 [facility] Comment on above: Order Comment: [facility] [employer] has implemented the eGFR calculation approach that does not have a coefficient for race that conforms to the NKF-ASN Task Force Recommendations. Performed By: #### 4 6449 ####[facility] [address] [place], [place] [address] Abbi Choudhary M.D. [id number] EGFR 24 mL/min/1.73 m2 Low >=60 [facility] Comment on above: Order Comment: [facility] [employer] has implemented the eGFR calculation approach that does not have a coefficient for race that conforms to the NKF-ASN Task Force Recommendations. Result Comment: Lorie mated GFR was calculated using the 2020 CKD-EPI creatinine equation. Performed By: #### 4 6449 ####[facility] [address] [place], [place] [address] Abbi Choudhary M.D. [id number] Glucose [Mass/Vol] 281 mg/dL High 65-99 [facility] Comment on above: Order Comment: [facility] has implemented the eGFR calculation approach that does not have a coefficient for race that conforms to the NKF-ASN Task Force Recommendations. Performed By: #### 4 6449 ####[facility] [address] [place], [place] [address] Abbi Choudhary M.D. [id number] HCO3 (Bld) [Moles/Vol] 20 mmol/L Low 21-32 [facility] Comment on above: Order Comment: [facility] has implemented the eGFR calculation approach that does not have a coefficient for race that conforms to the NKF-ASN Task Force Recommendations. Performed By: #### 4 6449 ####[facility] [address] [place], [place] [address] Abbi Choudhary M.D. [id number] Phosphate [Mass/Vol] 4.8 mg/dL High 2.7-4.5 [facility] Comment on above: Order Comment: [facility] [employer] has implemented the eGFR calculation approach that does not have a coefficient for race that conforms to the NKF-ASN Task Force Recommendations. Performed By: #### 4 6449 ####[facility] [address] [place], [place] [address] Abbi Choudhary M.D. [id number] Potassium [Moles/Vol] 5.3 mmol/L High 3.5-5.1 [facility] Comment on above: Order Comment: [facility] has implemented the eGFR calculation approach that does not have a coefficient for race that conforms to the NKF-ASN Task Force Recommendations. Performed By: #### 4 [id number] ####[facility] [address] [place], [place] [address] Abbi Choudhary M.D. [id number] Sodium [Moles/Vol] 137 mmol/L Normal 135-145 [facility] Comment on above: Order Comment: [facility] has implemented the eGFR calculation approach that does not have a coefficient for race that conforms to the NKF-ASN Task Force Recommendations. Performed By: #### 4 6449 ####[facility] [address] [place], [place] [address] Abbi Choudhary M.D. [id number] Urea nitrogen [Mass/Vol] 34 mg/dL High 8-25 [facility] Comment on above: Order Comment: [facility] has implemented the eGFR calculation approach that does not have a coefficient for race that conforms to the NKF-ASN Task Force Recommendations. Performed By: #### 4 6449 ####[facility] [address] [place], [place] [address] Abbi Choudhary M.D. [id number] Urea nitrogen/Creatinine [Mass ratio] 13.8 mg/mg Normal 10.0-20.0 [facility] Comment on above: Order Comment: [facility] has implemented the eGFR calculation approach that does not have a coefficient for race that conforms to the NKF-ASN Task Force Recommendations. Performed By: #### 4 [id number] ####[facility] [address] [place], [place] [address] Abbi Choudhary M.D. [id number] Renal function 2000 [facility] 03-28-2024 Albumin [Mass/Vol] 3.3 g/dL 3.2 - 5.2 g/dL [facility] Anion gap [Moles/Vol] 15 mmol/L 10 - 2 0 mmol/L [facility] Calcium [Mass/Vol] 8.5 mg/dL 8.4 - 10. 2 mg/dL [facility] Chloride [Moles/Vol] 107 mmol/L 98 - 10 8 mmol/L [facility] Creatinine [Mass/Vol] 2.47 mg/dL High 0.40 - 1.10 mg/dL [facility] GFR/1.73 sq M.predicted CKD-EPI (S/P/Bld) [Vol rate/Area] 24 Low - PINF [facility] Glucose [Mass/Vol] 281 mg/dL High 65 - 99 mg/dL [facility] HCO3 [Moles/Vol] 20 mmol/L Low 21 - 32 mmol/L [facility] Interpretation and review of laboratory results Abnormal [facility] Phosphate [Mass/Vol] 4.8 mg/dL High 2.7 - 4 .5 mg/dL [facility] Potassium [Moles/Vol] 5.3 mmol/L High 3.5 - 5.1 mmol/L [facility] Sodium [Moles/Vol] 137 mmol/L 135 - 145 mmol/L [facility] Urea nitrogen [Mass/Vol] 34 mg/dL High 8 - 25 mg/dL [facility] Urea nitrogen/Creatinine [Mass ratio] 13.8 mg/mg 10.0 - 20.0 [facility] - bilateral and Ur inary bladderon 03-28-2024 GE RIS GE RIS [facility] - bilateral and Ur inary bladderOrdered By: Kj Chiu on 03-28-2024 [facility] Work Phone: Bacteria identified Aer cx N om (Unsp spec)Ordered By: Keyla Guerrero on 03-27-2024 Interpretation and review of laboratory results Abnormal [facility] CBCon 03-27-2024 AUTO NRBC 0.0 % Normal [facility] Comment on above: Performed By: #### 4 [id number] ####[facility] [address] [place], [place] [address] Abbi Choudhary M.D. [id number] AUTO NRBC ABS COUNT 0.00 K/mcL Normal 0.00-0.00 [facility] Comment on above: Performed By: #### 4 [id number] ####[facility] [address] [place], [place] [address] Abbi Choudhary M.D. [id number] Erythrocyte distribution width (RBC) [Ratio] 13.2 % Normal 11.6-14.8 [facility] Comment on above: Performed By: #### 4 [id number] #### LAB [address] [place], [place] [address] Abbi Choudhary M.D. [id number] Hematocrit (Bld) [Volume fraction] 30.8 % Low 36.0-46.0 [facility] Comment on above: Performed By: #### 4 [id number] ####[facility] [address] [place], [place] [address] Abbi Choudhary M.D. [id number] Hemoglobin (Bld) [Mass/Vol] 9.6 g/dL Low 12.0-16.0 [facility] Comment on above: Performed By: #### 4 [id number] ####[facility] [address] [place], [place] [address] Abbi Choudhary M.D. [id number] MCH (RBC) [Entitic mass] 30.6 pg Normal 26.0-34.0 [facility] Comment on above: Performed By: #### 4 [id number] ####[facility] [address] [place], [place] [address] Abbi Choudhary M.D. [id number] MCV (RBC) [Entitic vol] 98.1 fL Normal 80.0-100.0 [facility] Comment on above: Performed By: #### 4 [id number] ####[facility] [address] [place], [place] [address] Abbi Choudhary M.D. [id number] MEAN CORPUSCULAR HEMOGLOBIN CONC 31.2 g/dL Normal 31.0-37.0 [facility] Comment on above: Performed By: #### 4 [id number] ####[facility] [address] [place], [place] [address] Abbi Choudhary M.D. [id number] Platelet mean volume (Bld) [Entitic vol] 9.4 fL Normal 9.4-12.4 [facility] Comment on above: Performed By: #### 4 [id number] ####[facility] [address] [place], [place] [address] Abbi Choudhary M.D. [id number] Platelets (Bld) [#/Vol] 308 10*3/uL Normal 150-400 [facility] Comment on above: Performed By: #### 4 [id number] ####[facility] [address] [place], [place] [address] Abbi Choudhary M.D. [id number] RBC (Bld) [#/Vol] 3.14 10*6/uL Low 4.00-5.20 [facility] Comment on above: Performed By: #### 4 [id number] ####[facility] [address] [place], [place] [address] Abbi Choudhary M.D. [id number] WBC (Bld) [#/Vol] 7.80 10*3/uL Normal 4.50-11.00 [facility] Comment on above: Performed By: #### 4 [id number] ####[facility] [address] [place] [address] Abbi Choudhary M.D. [id number] CBC panel Auto (Bld)on 03-27 Erythrocyte distribution width (RBC) [Entitic vol] 13.2 % 11.6 - 14.8 % [facility] Hematocrit (Bld) [Volume fraction] 30.8 % Low 36.0 - 46.0 % [facility] Hemoglobin (Bld) [Mass/Vol] 9.6 g/dL Low 12.0 - 16.0 g/dL [facility] Interpretation and review of laboratory results Abnormal [facility] MCH (RBC) [Entitic mass] 30.6 pg 26.0 - 34.0 pg [facility] MCHC (RBC) [Mass/Vol] 31.2 g/dL 31.0 - 37.0 g/dL [facility] MCV (RBC) [Entitic vol] 98.1 fL 80.0 - 100.0 fL [facility] Nucleated RBC (Bld) [#/Vol] 0 10*3/uL [facility] Nucleated RBC/100 WBC (Bld) [Ratio] 0 % [facility] Platelet mean volume (Bld) [Entitic vol] 9.4 fL 9.4 - 12.4 fL [facility] Platelets (Bld) [#/Vol] 308 10*3/uL [facility] RBC (Bld) [#/Vol] 3.14 10*6/uL Low [facility] WBC (Bld) [#/Vol] 7.8 10*3/uL [facility] CK [Catalytic activity/Vol]o n 03-27-2024 Interpretation and review of laboratory results Normal [facility] COMPREHENSIVE METABOLIC PANE [place] 03-27-2024 Albumin [Mass/Vol] 3.1 g/dL Low 3.2-5.2 [facility] Comment on above: Order Comment: [facility] has implemented the eGFR calculation approach that does not have a coefficient for race that conforms to the NKF-ASN Task Force Recommendations. Performed By: #### 4 [id number] ####[facility] [address] [place], [place] [address] Abbi Choudhary M.D. [id number] ALP [Catalytic activity/Vol] 91 U/L Normal 40-150 [facility] Comment on above: Order Comment: [facility] [employer] has implemented the eGFR calculation approach that does not have a coefficient for race that conforms to the NKF-ASN Task Force Recommendations. Performed By: #### 4 [id number] ####[facility] [address] [place], [place] [address] Abbi Choudhary M.D. [id number] ALT [Catalytic activity/Vol] 11 U/L Normal 0-35 U/L [facility] Comment on above: Order Comment: [facility] [employer] has implemented the eGFR calculation approach that does not have a coefficient for race that conforms to the NKF-ASN Task Force Recommendations. Performed By: #### 4 [id number] ####[facility] [address] [place], [place] [address] Abbi Choudhary M.D. [id number] Anion gap [Moles/Vol] 14 mmol/L Normal 10-20 [facility] Comment on above: Order Comment: [facility] [employer] has implemented the eGFR calculation approach that does not have a coefficient for race that conforms to the NKF-ASN Task Force Recommendations. Performed By: #### 4 [id number] ####[facility] [address] [place], [place] [address] Abbi Choudhary M.D. [id number] AST [Catalytic activity/Vol] 11 U/L Normal 0-35 U/L [facility] Comment on above: Order Comment: [facility] [employer] has implemented the eGFR calculation approach that does not have a coefficient for race that conforms to the NKF-ASN Task Force Recommendations. Performed By: #### 4 [id number] ####[facility] [address] [place], [place] [address] Abbi Choudhary M.D. [id number] Bilirubin [Mass/Vol] 0.3 mg/dL Normal 0.0-1.3 [facility] Comment on above: Order Comment: [facility] [employer] has implemented the eGFR calculation approach that does not have a coefficient for race that conforms to the NKF-ASN Task Force Recommendations. Performed By: #### 4 [id number] ####[facility] [address] [place], [place] [address] Abbi Choudhary M.D. [id number] Calcium [Mass/Vol] 8.2 mg/dL Low 8.4-10.2 [facility] Comment on above: Order Comment: [facility] has implemented the eGFR calculation approach that does not have a coefficient for race that conforms to the NKF-ASN Task Force Recommendations. Performed By: #### 4 [id number] ####[facility] [address] [place], [place] [address] Abbi Choudhary M.D. [id number] Chloride [Moles/Vol] 110 mmol/L High 98-108 [facility] Comment on above: Order Comment: [facility] [employer] has implemented the eGFR calculation approach that does not have a coefficient for race that conforms to the NKF-ASN Task Force Recommendations. Performed By: #### 4 [id number] ####[facility] [address] [place], [place] [address] Abbi Choudhary M.D. [id number] Creatinine [Mass/Vol] 2.53 mg/dL High 0.40-1.10 [facility] Comment on above: Order Comment: [facility] [employer] has implemented the eGFR calculation approach that does not have a coefficient for race that conforms to the NKF-ASN Task Force Recommendations. Performed By: #### 4 [id number] ####[facility] [address] [place], [place] [address] Abbi Choudhary M.D. [id number] EGFR 23 mL/min/1.73 m2 Low >=60 [facility] Comment on above: Order Comment: [facility] [employer] has implemented the eGFR calculation approach that does not have a coefficient for race that conforms to the NKF-ASN Task Force Recommendations. Result Comment: Lorie mated GFR was calculated using the 2020 CKD-EPI creatinine equation. Performed By: #### 4 [id number] ####[facility] [address] [place], [place] [address] Abbi Choudhary M.D. [id number] Glucose [Mass/Vol] 161 mg/dL High 65-99 [facility] Comment on above: Order Comment: [facility] has implemented the eGFR calculation approach that does not have a coefficient for race that conforms to the NKF-ASN Task Force Recommendations. Performed By: #### 4 [id number] ####[facility] [address] [place], [place] [address] Abbi Choudhary M.D. [id number] HCO3 (Bld) [Moles/Vol] 21 mmol/L Normal 21-32 [facility] Comment on above: Order Comment: [facility] [employer] has implemented the eGFR calculation approach that does not have a coefficient for race that conforms to the NKF-ASN Task Force Recommendations. Performed By: #### 4 [id number] ####[facility] [address] [place] [address] Abbi Choudhary M.D. [id number] Potassium [Moles/Vol] 4.8 mmol/L Normal 3.5-5.1 [facility] Comment on above: Order Comment: [facility] [employer] has implemented the eGFR calculation approach that does not have a coefficient for race that conforms to the NKF-ASN Task Force Recommendations. Performed By: #### 4 [id number] ####[facility] [address] [place], [place] [address] Abbi Choudhary M.D. [id number] Protein [Mass/Vol] 5.9 g/dL Low 6.0-8.0 [facility] Comment on above: Order Comment: [facility] has implemented the eGFR calculation approach that does not have a coefficient for race that conforms to the NKF-ASN Task Force Recommendations. Performed By: #### 4 6126 ####[facility] [address] [place], [place] [address] Abbi Choudhary M.D. [id number] Sodium [Moles/Vol] 140 mmol/L Normal 135-145 [facility] Comment on above: Order Comment: [facility] has implemented the eGFR calculation approach that does not have a coefficient for race that conforms to the NKF-ASN Task Force Recommendations. Performed By: #### 4 6126 ####[facility] [address] [place], [place] [address] Abbi Choudhary M.D. [id number] Urea nitrogen [Mass/Vol] 32 mg/dL High 8-25 [facility] Comment on above: Order Comment: [facility] has implemented the eGFR calculation approach that does not have a coefficient for race that conforms to the NKF-ASN Task Force Recommendations. Performed By: #### 4 6126 ####[facility] [address] [place], [place] [address] Abbi Choudhary M.D. [id number] Urea nitrogen/Creatinine [Mass ratio] 12.6 mg/mg Normal 10.0-20.0 [facility] Comment on above: Order Comment: [facility] has implemented the eGFR calculation approach that does not have a coefficient for race that conforms to the NKF-ASN Task Force Recommendations. Performed By: #### 4 6126 ####[facility] [address] [place], [place] [address] Abbi Choudhary M.D. [id number] CONSULTon 03-27-2024 CONSULT Normal [facility] CONSULT Normal [facility] CPKon 03-27-2024 CPK 56 U/L Normal 40-170 [facility] Comment on above: Performed By: #### 4 8261 ####[facility] [address] [place], [place] [address] Abbi Choudhary M.D. [id number] CPK NO MBon 03-27-2024 CK [Catalytic activity/Vol] 56 U/L 40 - 170 U/L [facility] Comprehensive metabolic 2000 panelon 03-27-2024 Albumin [Mass/Vol] 3.1 g/dL Low 3.2 - 5.2 g/dL [facility] ALP [Catalytic activity/Vol] 91 U/L 40 - 150 U/L [facility] ALT [Catalytic activity/Vol] 11 U/L 0-35 U/L [facility] Anion gap [Moles/Vol] 14 mmol/L 10 - 2 0 mmol/L [facility] AST [Catalytic activity/Vol] 11 U/L 0-35 U/L [facility] Bilirubin [Mass/Vol] 0.3 mg/dL 0.0 - 1 .3 mg/dL [facility] Calcium [Mass/Vol] 8.2 mg/dL Low 8.4 - 10. 2 mg/dL [facility] Chloride [Moles/Vol] 110 mmol/L High 98 - 10 8 mmol/L [facility] Creatinine [Mass/Vol] 2.53 mg/dL High 0.40 - 1.10 mg/dL [facility] GFR/1.73 sq M.predicted CKD-EPI (S/P/Bld) [Vol rate/Area] 23 Low - PINF [facility] Glucose [Mass/Vol] 161 mg/dL High 65 - 99 mg/dL [facility] HCO3 [Moles/Vol] 21 mmol/L 21 - 32 mmol/L [facility] Interpretation and review of laboratory results Abnormal [facility] Potassium [Moles/Vol] 4.8 mmol/L 3.5 - 5.1 mmol/L [facility] Protein [Mass/Vol] 5.9 g/dL Low 6.0 - 8.0 g/dL [facility] Sodium [Moles/Vol] 140 mmol/L 135 - 145 mmol/L [facility] Urea nitrogen [Mass/Vol] 32 mg/dL High 8 - 25 mg/dL [facility] Urea nitrogen/Creatinine [Mass ratio] 12.6 mg/mg 10.0 - 20.0 [facility] Glucose (Bld) [Mass/Vol]on 05-27-2023 Glucose [Mass/Vol] 131 mg/dL High 65 - 99 mg/dL [facility] Interpretation and review of laboratory results Abnormal [facility] Glucose [Mass/Vol] 177 mg/dL High 65 - 99 mg/dL [facility] Interpretation and review of laboratory results Abnormal [facility] Glucose [Mass/Vol] 223 mg/dL High 65 - 99 mg/dL [facility] Interpretation and review of laboratory results Abnormal [facility] Glucose [Mass/Vol] 267 mg/dL High 65 - 99 mg/dL [facility] Interpretation and review of laboratory results Abnormal [facility] Glucose [Mass/Vol] 135 mg/dL High 65 - 99 mg/dL [facility] Interpretation and review of laboratory results Abnormal [facility] Glucose [Mass/Vol] 275 mg/dL High 65 - 99 mg/dL [facility] Interpretation and review of laboratory results Abnormal [facility] POC GLUCOSE - Micky 024 Glucose [Mass/Vol] 131 mg/dL High 65-99 [facility] Comment on above: Performed By: #### 4 6932 ####[facility] [address] [place], [place] [address] Abbi Choudhary M.D. [id number] Glucose [Mass/Vol] 177 mg/dL [address] Comment on above: Performed By: #### 4 6932 ####[facility] [address] [place], [place] [address] Abbi Choudhary M.D. [id number] Glucose [Mass/Vol] 223 mg/dL [address] Comment on above: Performed By: #### 4 6932 ####[facility] [address] [place], [place] [address] Abbi Choudhary M.D. [id number] Glucose [Mass/Vol] 267 mg/dL [address] Comment on above: Performed By: #### 4 6932 ####[facility] [address] [place], [place] [address] Abbi Choudhary M.D. [id number] Glucose [Mass/Vol] 135 mg/dL [address] Comment on above: Performed By: #### 4 6932 ####[facility] [address] [place], [place] [address] Abbi Choudhary M.D. [id number] Glucose [Mass/Vol] 275 mg/dL [address] Comment on above: Performed By: #### 4 6932 ####[facility] [address] [place], [place] [address] Abbi Choudhary M.D. [id number] US Kidney - bilateral and Ur inary bladderon 03-27-2024 Radiology Study observation (narrative) [facility] US RENAL AND BLADDERon 03-27 RENAL AND BLADDER Normal [facility] Comment on above: Order Comment: Injur y/Trauma or Illness?:Illness/OtherHow long have you had these symptoms (acute/chronic)?:UnknownReason for exam?:Renal failureHistory of cancer?:uSurgeries, chemotherapy, or radiation?:pacemakerType of Exam?:UnknownAdditional signs and symptoms?:no Urine Aerobic CultureOrdered By: Keyla Guerrero on 03-27-2024 Bacteria identified Aer cx Nom (Unsp spec) 50,000-100,000 CFU/mL Escherichia coli Abnormal [facility] XR CHEST LATERAL LEFTon XR CHEST LATERAL LEFT Normal [facility] Comment on above: Order Comment: Injur y/Trauma or Illness?:Illness/OtherHow long have you had these symptoms (acute/chronic)?:AcuteReason for exam?:Eval depth of port access needleHistory of cancer?:uSurgeries, chemotherapy, or radiation?:pacemakerType of Exam?:OngoingAdditional signs and symptoms?:unable to get blood return XR CHEST PA/APon 03-27-2024 XR CHEST PA/AP Normal [facility] Comment on above: Order Comment: Injur y/Trauma or Illness?:Illness/OtherHow long have you had these symptoms (acute/chronic)?:AcuteReason for exam?:port varifictionHistory of cancer?:uSurgeries, chemotherapy, or radiation?:pacemakerType of Exam?:UnknownAdditional signs and symptoms?:no XR Chest AP left lateral-dec ubituson 03-27-2024 GE RIS GE RIS [facility] Radiology Study observation (narrative) [facility] XR Chest PA and Abdomen APon 03-27-2024 GE RIS GE RIS [facility] Radiology Study observation (narrative) [facility] XR Chest PA and Abdomen APOr dered By: Jermaine Peralta on 03-27-2024 [facility] Work Phone: BASIC METABOLIC PANELon Anion gap [Moles/Vol] 16 mmol/L Normal 10-20 [facility] Comment on above: Order Comment: [facility] has implemented the eGFR calculation approach that does not have a coefficient for race that conforms to the NKF-ASN Task Force Recommendations. Performed By: #### 4 [id number] ####[facility] [address] [place] [address] Abbi Choudhary M.D. [id number] Calcium [Mass/Vol] 8.3 mg/dL Low 8.4-10.2 [facility] Comment on above: Order Comment: [facility] has implemented the eGFR calculation approach that does not have a coefficient for race that conforms to the NKF-ASN Task Force Recommendations. Performed By: #### 4 6124 ####[facility] [address] [place], [place] [address] Abbi Choudhary M.D. [id number] Chloride [Moles/Vol] 106 mmol/L Normal 98-108 [facility] Comment on above: Order Comment: [facility] has implemented the eGFR calculation approach that does not have a coefficient for race that conforms to the NKF-ASN Task Force Recommendations. Performed By: #### 4 6124 ####[facility] [address] [place], [place] [address] Abbi Choudhary M.D. [id number] Creatinine [Mass/Vol] 2.52 mg/dL High 0.40-1.10 [facility] Comment on above: Order Comment: [facility] has implemented the eGFR calculation approach that does not have a coefficient for race that conforms to the NKF-ASN Task Force Recommendations. Performed By: #### 4 6124 ####[facility] [address] [place], [place] [address] Abbi Choudhary M.D. [id number] EGFR 23 mL/min/1.73 m2 Low >=60 [facility] Comment on above: Order Comment: [facility] has implemented the eGFR calculation approach that does not have a coefficient for race that conforms to the NKF-ASN Task Force Recommendations. Result Comment: Lorie mated GFR was calculated using the 2020 CKD-EPI creatinine equation. Performed By: #### 4 6124 ####[facility] [address] [place], [place] [address] Abbi Choudhary M.D. [id number] Glucose [Mass/Vol] 333 mg/dL High 65-99 [facility] Comment on above: Order Comment: [facility] has implemented the eGFR calculation approach that does not have a coefficient for race that conforms to the NKF-ASN Task Force Recommendations. Performed By: #### 4 6124 ####[facility] [address] [place], [place] [address] Abbi Choudhary M.D. [id number] HCO3 (Bld) [Moles/Vol] 20 mmol/L Low 21-32 [facility] Comment on above: Order Comment: [facility] has implemented the eGFR calculation approach that does not have a coefficient for race that conforms to the NKF-ASN Task Force Recommendations. Performed By: #### 4 6124 ####[facility] [address] [place], [place] [address] Abbi Choudhary M.D. [id number] Potassium [Moles/Vol] 4.8 mmol/L Normal 3.5-5.1 [facility] Comment on above: Order Comment: [facility] has implemented the eGFR calculation approach that does not have a coefficient for race that conforms to the NKF-ASN Task Force Recommendations. Performed By: #### 4 6124 ####[facility] [address] [place], [place] [address] Abbi Choudhary M.D. [id number] Sodium [Moles/Vol] 137 mmol/L Normal 135-145 [facility] Comment on above: Order Comment: [facility] has implemented the eGFR calculation approach that does not have a coefficient for race that conforms to the NKF-ASN Task Force Recommendations. Performed By: #### 4 6124 ####[facility] [address] [place], [place] [address] Abbi Choudhary M.D. [id number] Urea nitrogen [Mass/Vol] 30 mg/dL High 8-25 [facility] Comment on above: Order Comment: [facility] has implemented the eGFR calculation approach that does not have a coefficient for race that conforms to the NKF-ASN Task Force Recommendations. Performed By: #### 4 6124 ####[facility] [address] [place], [place] [address] Abbi Choudhary M.D. [id number] Urea nitrogen/Creatinine [Mass ratio] 11.9 mg/mg Normal 10.0-20.0 [facility] Comment on above: Order Comment: [facility] has implemented the eGFR calculation approach that does not have a coefficient for race that conforms to the NKF-ASN Task Force Recommendations. Performed By: #### 4 6124 ####[facility] [address] [place], [place] [address]Alisia Choudhary M.D. [id number] BETA-HYDROXYBUTYRATEon 03-26 BETA-HYDROXYBUTYRATE < Normal 0.0-0.3 [facility] Comment on above: Performed By: #### 4 5139 ####[facility] [address] [place] [address] Abbi Choudhary M.D. [id number] Basic metabolic 2000 panelOr dered By: Wai Villatoro on 03-26-2024 Anion gap [Moles/Vol] 16 mmol/L 10 - 2 0 mmol/L [facility] Calcium [Mass/Vol] 8.3 mg/dL Low 8.4 - 10. 2 mg/dL [facility] Chloride [Moles/Vol] 106 mmol/L 98 - 10 8 mmol/L [facility] Creatinine [Mass/Vol] 2.52 mg/dL High 0.40 - 1.10 mg/dL [facility] GFR/1.73 sq M.predicted CKD-EPI (S/P/Bld) [Vol rate/Area] 23 Low - PINF [facility] Glucose [Mass/Vol] 333 mg/dL High 65 - 99 mg/dL [facility] HCO3 [Moles/Vol] 20 mmol/L Low 21 - 32 mmol/L [facility] Interpretation and review of laboratory results Abnormal [facility] Potassium [Moles/Vol] 4.8 mmol/L 3.5 - 5.1 mmol/L [facility] Sodium [Moles/Vol] 137 mmol/L 135 - 145 mmol/L [facility] Urea nitrogen [Mass/Vol] 30 mg/dL High 8 - 25 mg/dL [facility] Urea nitrogen/Creatinine [Mass ratio] 11.9 mg/mg 10.0 - 20.0 [facility] Beta hydroxybutyrate [Moles/ Vol]on 03-26-2024 Interpretation and review of laboratory results Normal [facility] Beta-Hydroxybutyrateon 03-26 Beta hydroxybutyrate [Moles/Vol] mmol/L 0.0 - 0.3 mmol/L [facility] CBC (INCLUDES DIFF/PLT)on Basophils (Bld) [#/Vol] 0.073 10*3/uL Normal 0-200 [facility] Comment on above: Performed By: #### 9 1431, 78326, 866, 899, 496, 6399, 47319 #### [facility] of [address], [address] [place] [address] [employer]: Dean Maddox MD Basophils/100 WBC (Bld) 0.7 % Normal [facility] Comment on above: Performed By: #### 9 1431, 45495, 866, 899, 496, 6399, 40598 #### [facility] of [place] [address] [employer]: Dean Maddox MD Eosinophils (Bld) [#/Vol] 0.354 10*3/uL Normal 15-500 [facility] Comment on above: Performed By: #### 9 1431, 87208, 866, 899, 496, 6399, 72820 #### [facility] of [place] [address] [employer]: Dean Maddox MD Eosinophils/100 WBC (Bld) 3.4 % Normal [facility] Comment on above: Performed By: #### 9 1431, 90093, 866, 899, 496, 6399, 26679 #### [facility] of [place] [address] [employer]: Dean Maddox MD Erythrocyte distribution width (RBC) [Ratio] 13.0 % Normal 11.0-15.0 [facility] Comment on above: Performed By: #### 9 1431, 29407, 866, 899, 496, 6399, 96285 #### [facility] of [place] [address] [employer]: Dean Maddox MD Hematocrit (Bld) [Volume fraction] 40.1 % Normal 35.0-45.0 [facility] Comment on above: Performed By: #### 9 1431, 82621, 866, 899, 496, 6399, 84816 #### [facility] of [place] [address] [employer]: Dean Maddox MD Hemoglobin (Bld) [Mass/Vol] 12.8 g/dL Normal 11.7-15.5 [facility] Comment on above: Performed By: #### 9 1431, 89597, 866, 899, 496, 6399, 19502 #### [facility] of [place] [address] [employer]: Dean Maddox MD Lymphocytes (Bld) [#/Vol] 2.007 10*3/uL Normal 850-3900 [facility] Comment on above: Performed By: #### 9 1431, 31958, 866, 899, 496, 6399, 26032 #### [facility] of [place] [address] [employer]: Dean Maddox MD Lymphocytes/100 WBC (Bld) 19.3 % Normal [facility] Comment on above: Performed By: #### 9 1431, 81394, 866, 899, 496, 6399, 57135 #### [facility] of [place] [address] [employer]: Dean Maddox MD MCH (RBC) [Entitic mass] 30.0 pg Normal 27.0-33.0 [facility] Comment on above: Performed By: #### 9 1431, 54969, 866, 899, 496, 6399, 31583 #### [facility] of [place] [address] [employer]: Dean Maddox MD MCHC (RBC) [Mass/Vol] 31.9 [...] clinical condition. Performed By: #### 9 1431, 57254, 866, 899, 496, 6399, 03147 #### [facility] of [place] [address] [employer]: Dean Maddox MD MCV (RBC) [Entitic vol] 94.1 fL Normal 80.0-100.0 [facility] Comment on above: Performed By: #### 9 1431, 06859, 866, 899, 496, 6399, 06395 #### [facility] of [place] [address] [employer]: Dean Maddox MD Monocytes (Bld) [#/Vol] 0.478 10*3/uL Normal 200-950 [facility] Comment on above: Performed By: #### 9 1431, 90371, 866, 899, 496, 6399, 38883 #### [facility] of [place] [address] [employer]: Dean Maddox MD Monocytes/100 WBC (Bld) 4.6 % Normal [facility] Comment on above: Performed By: #### 9 1431, 08243, 866, 899, 496, 6399, 94671 #### [facility] of [place] [address] [employer]: Dean Maddox MD Neutrophils (Bld) [#/Vol] 7.488 10*3/uL Normal 5865-4970 [facility] Comment on above: Performed By: #### 9 1431, 94388, 866, 899, 496, 6399, 25490 #### [facility] of [place] [address] [employer]: Dean Maddox MD Neutrophils/100 WBC (Bld) 72 % Normal [facility] Comment on above: Performed By: #### 9 1431, 92251, 866, 899, 496, 6399, 35769 #### [facility] of [place] [address] [employer]: Dean Maddox MD Platelet mean volume (Bld) [Entitic vol] 9.6 fL Normal 7.5-12.5 [facility] Comment on above: Performed By: #### 9 1431, 38178, 866, 899, 496, 6399, 60042 #### [facility] of [place] [address] [employer]: Dean Maddox MD Platelets (Bld) [#/Vol] 367 10*3/uL Normal 140-400 [facility] Comment on above: Performed By: #### 9 1431, 17413, 866, 899, 496, 6399, 16525 #### [facility] [place] [address] [employer]: Dean Maddox MD RBC (Bld) [#/Vol] 4.26 10*6/uL Normal 3.80-5.10 [facility] Comment on above: Performed By: #### 9 1431, 61082, 866, 899, 496, 6399, 62739 #### [facility] [place] [address] [employer]: Dean Maddox MD WBC (Bld) [#/Vol] 10.4 10*3/uL Normal 3.8-10.8 [facility] Comment on above: Performed By: #### 9 1431, 69123, 866, 899, 496, 6399, 46929 #### [facility] of [place] [address] [employer]: Dean Maddox MD [facility] METABOL[facility] 03-26-2024 Albumin [Mass/Vol] 4.1 g/dL Normal 3.6-5.1 [facility] Comment on above: Order Comment: COLLE CTION KIT GIVEN TO PATIENT. PATIENT ADVISED TO RETURN. Performed By: #### 9 1431, 85357, 866, 899, 496, 6399, 54210 #### [facility] of [place] [address] [employer]: Dean Maddox MD Albumin/Globulin [Mass ratio] 1.3 {ratio} Normal 1.0-2.5 [facility] Comment on above: Order Comment: COLLE CTION KIT GIVEN TO PATIENT. PATIENT ADVISED TO RETURN. Performed By: #### 9 1431, 51445, 866, 899, 496, 6399, 17833 #### [facility] [address], [address] [place] [address] [employer]: Dean Maddox MD ALP [Catalytic activity/Vol] 114 U/L Normal 31-125 [facility] Comment on above: Order Comment: COLLE CTION KIT GIVEN TO PATIENT. PATIENT ADVISED TO RETURN. Performed By: #### 9 1431, 63994, 866, 899, 496, 6399, 38674 #### [facility] [place] [address] [employer]: Dean Maddox MD ALT [Catalytic activity/Vol] 11 U/L Normal 6-29 [facility] Comment on above: Order Comment: COLLE CTION KIT GIVEN TO PATIENT. PATIENT ADVISED TO RETURN. Performed By: #### 9 1431, 78775, 866, 899, 496, 6399, 98888 #### [facility] [place] [address] [employer]: Dean Maddox MD AST [Catalytic activity/Vol] 9 U/L Low 10-35 [facility] Comment on above: Order Comment: COLLE CTION KIT GIVEN TO PATIENT. PATIENT ADVISED TO RETURN. Performed By: #### 9 1431, 44181, 866, 899, 496, 6399, 68994 #### [facility] [place] [address] [employer]: Dean Maddox MD Bilirubin [Mass/Vol] 0.5 mg/dL Normal 0.2-1.2 [facility] Comment on above: Order Comment: COLLE CTION KIT GIVEN TO PATIENT. PATIENT ADVISED TO RETURN. Performed By: #### 9 1431, 38827, 866, 899, 496, 6399, 67387 #### [facility] [address], [address] [place] [address] [employer]: Dean Maddox MD Calcium [Mass/Vol] 9.8 mg/dL Normal 8.6-10.2 [facility] Comment on above: Order Comment: COLLE CTION KIT GIVEN TO PATIENT. PATIENT ADVISED TO RETURN. Performed By: #### 9 1431, 28643, 866, 899, 496, 6399, 39188 #### [facility] [place] [address] [employer]: Dean Maddox MD Chloride [Moles/Vol] 106 mmol/L Normal 98-110 [facility] Comment on above: Order Comment: COLLE CTION KIT GIVEN TO PATIENT. PATIENT ADVISED TO RETURN. Performed By: #### 9 1431, 20478, 866, 899, 496, 6399, 00493 #### [facility] [address], [address] [place] [address] [employer]: Dean Maddox MD CO2 [Moles/Vol] 23 mmol/L Normal 20-32 [facility] Comment on above: Order Comment: COLLE CTION KIT GIVEN TO PATIENT. PATIENT ADVISED TO RETURN. Performed By: #### 9 1431, 06336, 866, 899, 496, 6399, 42587 #### [facility] [address], [address] [place] [address] [employer]rob[employer]igger: Dean Maddox MD Creatinine [Mass/Vol] 1.28 mg/dL High 0.50-0.[address] [facility] Comment on above: Order Comment: COLLE CTION KIT GIVEN TO PATIENT. PATIENT ADVISED TO RETURN. Performed By: #### 9 1431, 83514, 866, 899, 496, 6399, 49024 #### [facility] [place] [address] [employer]rob[employer] Rigger: Dean Maddox MD GFR/1.73 sq M.predicted among non-blacks MDRD (S/P/Bld) [Vol rate/Area] 52 mL/min/{1.73_m2} Low > OR = 60 [facility] Comment on above: Order Comment: COLLE CTION KIT GIVEN TO PATIENT. PATIENT ADVISED TO RETURN. Performed By: #### 9 1431, 08630, 866, 899, 496, 6399, 56759 #### [facility] [address], [address] [place] [address] [employer]rob[employer] Rigger: Dean Maddox MD Globulin (S) [Mass/Vol] 3.1 g/dL Normal 1.9-3.7 [facility] Comment on above: Order Comment: COLLE CTION KIT GIVEN TO PATIENT. PATIENT ADVISED TO RETURN. Performed By: #### 9 1431, 63360, 866, 899, 496, 6399, 15023 #### [facility] [address], [address] [place] [address] [employer]rob[employer] Rigger: Dean Maddox MD Glucose [Mass/Vol] 239 mg/dL High 65-99 [facility] Comment on above: Order Comment: COLLE CTION KIT GIVEN TO PATIENT. PATIENT ADVISED TO RETURN. Result Comment: Fasting reference interval For someone without known diabetes, a glucose value >125 mg/dL indicates that they may have diabetes and this should be confirmed with a follow-up test. Performed By: #### 9 1431, 06337, 866, 899, 496, 6399, 36211 #### [facility] [place] [address] Acrobatic Rigger: Dean Maddox MD Potassium [Moles/Vol] 4.3 mmol/L Normal 3.5-5.3 [facility] Comment on above: Order Comment: COLLE CTION KIT GIVEN TO PATIENT. PATIENT ADVISED TO RETURN. Performed By: #### 9 1431, 00994, 866, 899, 496, 6399, 68990 #### [facility] [place] [address] Acrobatic Rigger: Dean Maddox MD Protein [Mass/Vol] 7.2 g/dL Normal 6.1-8.1 [facility] Comment on above: Order Comment: COLLE CTION KIT GIVEN TO PATIENT. PATIENT ADVISED TO RETURN. Performed By: #### 9 1431, 97770, 866, 899, 496, 6399, 30797 #### [facility] [address], [address] [place] [address] [employer]robatic Rigger: Dean Maddox MD Sodium [Moles/Vol] 138 mmol/L Normal 135-146 [facility] Comment on above: Order Comment: COLLE CTION KIT GIVEN TO PATIENT. PATIENT ADVISED TO RETURN. Performed By: #### 9 1431, 48926, 866, 899, 496, 6399, 22943 #### [facility] [address], [address] [place] [address] Acrobatic Rigger: Dean Maddox MD Urea nitrogen [Mass/Vol] 34 mg/dL High 7-25 [facility] Comment on above: Order Comment: COLLE CTION KIT GIVEN TO PATIENT. PATIENT ADVISED TO RETURN. Performed By: #### 9 1431, 42948, 866, 899, 496, 6399, 06541 #### [facility] [address], [address] [place] [address] Acrobatic Rigger: Dean Maddox MD Urea nitrogen/Creatinine [Mass ratio] 27 mg/mg High 6-22 [facility] Comment on above: Order Comment: COLLE CTION KIT GIVEN TO PATIENT. PATIENT ADVISED TO RETURN. Performed By: #### 9 [id number], [id number], 866, 899, 496, 6399, 86478 #### [facility] [address], [address] [place] [address] Acrobatic Rigger: Dean Maddox MD CREATININE, SERUMon 03-26-20 24 Creatinine [Mass/Vol] 1.67 mg/dL High 0.40-1.10 [facility] Comment on above: Order Comment: For m onitoring while [facility]com[facility] has implemented the eGFR calculation approach that does not have a coefficient for race that conforms to the NKF-ASN Task Force Recommendations. Performed By: #### 4 5336 ####[facility] [address] [address] Abbi Choudhary M.D. [id number] EGFR 38 mL/min/1.73 m2 Low >=60 [facility] Comment on above: Order Comment: For m onitoring while on vancomycin therapy[facility] has implemented the eGFR calculation approach that does not have a coefficient for race that conforms to the NKF-ASN Task Force Recommendations. Result Comment: Lorie mated GFR was calculated using the 2020 CKD-EPI creatinine equation. Performed By: #### 4 5336 ####[facility] [address] [address] Abbi Choudhary M.D. [id number] Creatinine [Mass/Vol]on GFR/1.73 sq M.predicted CKD-EPI (S/P/Bld) [Vol rate/Area] 38 Low - PINF [facility] Interpretation and review of laboratory results Abnormal [facility] Creatinine, Serumon 03-26-20 Creatinine [Mass/Vol] 1.67 mg/dL High 0.40 - 1.10 mg/dL [facility] Glucose (Bld) [Mass/Vol]on 05-26-2023 Glucose [Mass/Vol] 328 mg/dL High 65 - 99 mg/dL [facility] Interpretation and review of laboratory results Abnormal [facility] Glucose [Mass/Vol] 312 mg/dL High 65 - 99 mg/dL [facility] Interpretation and review of laboratory results Abnormal [facility] Glucose [Mass/Vol] 214 mg/dL High 65 - 99 mg/dL [facility] Interpretation and review of laboratory results Abnormal [facility] Glucose [Mass/Vol] 101 mg/dL High 65 - 99 mg/dL [facility] Interpretation and review of laboratory results Abnormal [facility] Glucose [Mass/Vol] 72 mg/dL 65 - 99 mg/dL [facility] Interpretation and review of laboratory results Normal [facility] LEVETIRACETAMon 03-26-2024 levETIRAcetam [Mass/Vol] ug/mL Low [facility] Comment on above: Result Comment: Refe rence Range: 12.0-46.0 Toxic level is not well established. Interpretation should include a clinical evaluation. For additional information, please refer to http://education.Acquaintable/faq/QJB250 (This link is being provided for informational/educational purposes only.) This test was developed and its analytical performance characteristics have been determined by [facility]. It has not been cleared or approved by the FDA. This assay has been validated pursuant to the CLIA regulations and is used for clinical purposes. Performed By: #### 9 1431, 54739, 866, 899, 496, 6399, 15667 #### [facility] [address], [address] [place] [address] Acrobatic Rigger: Dean Zimmer 03-26-2024 Extra Tube Hold for add-ons. [facility] POC GLUCOSE - [facility] 024 Glucose [Mass/Vol] 328 mg/dL High [address] [place] [address] Comment on above: Performed By: #### 4 [id number] ####[facility] [address] [place], [place] [address] Abbi Choudhary M.D. [id number] Glucose [Mass/Vol] 312 mg/dL High [address] [place] [address] Comment on above: Performed By: #### 4 6932 ####[facility] [address] [place], [place] [address] Abbi Choudhary M.D. [id number] Glucose [Mass/Vol] 214 mg/dL [address] Comment on above: Performed By: #### 4 [id number] ####[facility] [address] [place], [place] [address] Abbi Choudhary M.D. [id number] Glucose [Mass/Vol] 101 mg/dL High [address] [place] [address] Comment on above: Performed By: #### 4 6932 ####[facility] [address] [place], [place] [address] Abbi Choudhary M.D. [id number] Glucose [Mass/Vol] 72 mg/dL Normal [address] [place] [address] Comment on above: Performed By: #### 4 [id number] ####[facility] [address] [place], [place] [address] Abbi Choudhary M.D. [id number] BASIC METABOLIC PANEL 11-0 Anion gap [Moles/Vol] 15 mmol/L Normal - [facility] Comment on above: Order Comment: [facility] has implemented the eGFR calculation approach that does not have a coefficient for race that conforms to the NKF-ASN Task Force Recommendations. Performed By: #### 4 6124 ####[facility] [address] [place], [place] [address] Abbi Choudhary M.D. [id number] Calcium [Mass/Vol] 8.3 mg/dL Low 8.4-10.2 [facility] Comment on above: Order Comment: [facility] has implemented the eGFR calculation approach that does not have a coefficient for race that conforms to the NKF-ASN Task Force Recommendations. Performed By: #### 4 6124 ####[facility] [address] [address] Abbi Choudhary M.D. [id number] Chloride [Moles/Vol] 105 mmol/L Normal 98-108 [facility] Comment on above: Order Comment: [facility] has implemented the eGFR calculation approach that does not have a coefficient for race that conforms to the NKF-ASN Task Force Recommendations. Performed By: #### 4 6124 ####[facility] [address] [place], [place] [address] Abbi Choudhary M.D. [id number] Creatinine [Mass/Vol] 1.35 mg/dL High 0.40-1.10 [facility] Comment on above: Order Comment: [facility] has implemented the eGFR calculation approach that does not have a coefficient for race that conforms to the NKF-ASN Task Force Recommendations. Performed By: #### 4 6124 ####[facility] [address] [place], [place] [address] Abbi Choudhary M.D. [id number] EGFR 49 mL/min/1.73 m2 Low >=60 [facility] Comment on above: Order Comment: [facility] has implemented the eGFR calculation approach that does not have a coefficient for race that conforms to the NKF-ASN Task Force Recommendations. Result Comment: Lorie mated GFR was calculated using the 2020 CKD-EPI creatinine equation. Performed By: #### 4 6124 ####[facility] [address] [place], [place] [address] Abbi Choudhary M.D. [id number] Glucose [Mass/Vol] 345 mg/dL High 65-99 [facility] Comment on above: Order Comment: [facility] has implemented the eGFR calculation approach that does not have a coefficient for race that conforms to the NKF-ASN Task Force Recommendations. Performed By: #### 4 6124 ####[facility] [address] [place], [place] [address] Abbi Choudhary M.D. [id number] HCO3 (Bld) [Moles/Vol] 22 mmol/L Normal 21-32 [facility] Comment on above: Order Comment: [facility] has implemented the eGFR calculation approach that does not have a coefficient for race that conforms to the NKF-ASN Task Force Recommendations. Performed By: #### 4 6124 ####[facility] [address] [place] [address] Abbi Choudhary M.D. [id number] Potassium [Moles/Vol] 4.3 mmol/L Normal 3.5-5.1 [facility] Comment on above: Order Comment: [facility] has implemented the eGFR calculation approach that does not have a coefficient for race that conforms to the NKF-ASN Task Force Recommendations. Performed By: #### 4 6124 ####[facility] [address] [place] [address] Abbi Choudhary M.D. [id number] Sodium [Moles/Vol] 138 mmol/L Normal 135-145 [facility] Comment on above: Order Comment: [facility] has implemented the eGFR calculation approach that does not have a coefficient for race that conforms to the NKF-ASN Task Force Recommendations. Performed By: #### 4 6124 ####[facility] [address] [place] [address] Abbi Choudhary M.D. [id number] Urea nitrogen [Mass/Vol] 23 mg/dL Normal 8-25 [facility] Comment on above: Order Comment: [facility] has implemented the eGFR calculation approach that does not have a coefficient for race that conforms to the NKF-ASN Task Force Recommendations. Performed By: #### 4 6124 ####[facility] [address] [place], [place] [address] Abbi Choudhary M.D. [id number] Urea nitrogen/Creatinine [Mass ratio] 17.0 mg/mg Normal 10.0-20.0 [facility] Comment on above: Order Comment: [facility] has implemented the eGFR calculation approach that does not have a coefficient for race that conforms to the NKF-ASN Task Force Recommendations. Performed By: #### 4 6124 ####[facility] [address] [place], [place] [address] Abbi Choudhary M.D. [id number] BLOOD CULTURE AEROBIC/ANAERO [facility] 03-25-2024 BLOOD CULTURE AEROBIC/ANAEROBIC BLOOD CULTURE No Growth after 5 days Normal [facility] Comment on above: Performed By: #### 4 4014 ####[facility] [address] [place] [address] Swapnil Brewre M.D. [id number] Basic metabolic 2000 panelon 03-25-2024 Anion gap [Moles/Vol] 15 mmol/L 10 - 2 0 mmol/L [facility] Calcium [Mass/Vol] 8.3 mg/dL Low 8.4 - 10. 2 mg/dL [facility] Chloride [Moles/Vol] 105 mmol/L 98 - 10 8 mmol/L [facility] Creatinine [Mass/Vol] 1.35 mg/dL High 0.40 - 1.10 mg/dL [facility] GFR/1.73 sq M.predicted CKD-EPI (S/P/Bld) [Vol rate/Area] 49 Low - PINF [facility] Glucose [Mass/Vol] 345 mg/dL High 65 - 99 mg/dL [facility] HCO3 [Moles/Vol] 22 mmol/L 21 - 32 mmol/L [facility] Interpretation and review of laboratory results Abnormal [facility] Potassium [Moles/Vol] 4.3 mmol/L 3.5 - 5.1 mmol/L [facility] Sodium [Moles/Vol] 138 mmol/L 135 - 145 mmol/L [facility] Urea nitrogen [Mass/Vol] 23 mg/dL 8 - 25 mg/dL [facility] Urea nitrogen/Creatinine [Mass ratio] 17 mg/mg 10.0 - 20.0 [facility]O NRBC 0.0 % Normal [facility] Comment on above: Performed By: #### 4 [id number] ####[facility] [address] [place], [place] [address] Abbi Choudhary M.D. [id number] AUTO NRBC ABS COUNT 0.00 K/mcL Normal 0.00-0.00 [facility] Comment on above: Performed By: #### 4 [id number] ####[facility] [address] [address] Abbi Choudhary M.D. [id number] Erythrocyte distribution width (RBC) [Ratio] 13.0 % Normal 11.6-14.8 [facility] Comment on above: Performed By: #### 4 [id number] ####[facility] [address] [place], [place] [address] Abbi Choudhary M.D. [id number] Hematocrit (Bld) [Volume fraction] 29.7 % Low 36.0-46.0 [facility] Comment on above: Performed By: #### 4 [id number] ####[facility] [address] [address] Abbi Choudhary M.D. [id number] Hemoglobin (Bld) [Mass/Vol] 10.2 g/dL Low 12.0-16.0 [facility] Comment on above: Performed By: #### 4 [id number] ####[facility] [address] [place], [place] [address] Abbi Choudhary M.D. [id number] MCH (RBC) [Entitic mass] 30.7 pg Normal 26.0-34.0 [facility] Comment on above: Performed By: #### 4 [id number] #### [facility] [address] [address] Abbi Choudhary M.D. [id number] MCV (RBC) [Entitic vol] 89.5 fL Normal 80.0-100.0 [facility] Comment on above: Performed By: #### 4 [id number] ####[facility] [address] [address] Abbi Choudhary M.D. [id number] MEAN CORPUSCULAR HEMOGLOBIN CONC 34.3 g/dL Normal 31.0-37.0 [facility] Comment on above: Performed By: #### 4 [id number] ####[facility] [address] [place], [place] [address] Abbi Choudhary M.D. [id number] Platelet mean volume (Bld) [Entitic vol] 9.0 fL Low 9.4-12.4 [facility] Comment on above: Performed By: #### 4 [id number] ####[facility] [address] [place], [place] [address] Abbi Choudhary M.D. [id number] Platelets (Bld) [#/Vol] 297 10*3/uL Normal 150-400 [facility] Comment on above: Performed By: #### 4 [id number] ####[facility] [address] [address] Abbi Choudhary M.D. [id number] RBC (Bld) [#/Vol] 3.32 10*6/uL Low 4.00-5.20 [facility] Comment on above: Performed By: #### 4 [id number] ####[facility] [address] [address] Abbi Choudhary M.D. [id number] WBC (Bld) [#/Vol] 8.66 10*3/uL Normal 4.50-11.00 [facility] Comment on above: Performed By: #### 4 [id number] ####[facility] [address] [place], [place] [address] Abib Choudhary M.D. [id number] CBC panel Auto (Bld)on 03-25 Erythrocyte distribution width (RBC) [Entitic vol] 13 % 11.6 - 14.8 % [facility] Hematocrit (Bld) [Volume fraction] 29.7 % Low 36.0 - 46.0 % [facility] Hemoglobin (Bld) [Mass/Vol] 10.2 g/dL Low 12.0 - 16.0 g/dL [facility] Interpretation and review of laboratory results Abnormal [facility] MCH (RBC) [Entitic mass] 30.7 pg 26.0 - 34.0 pg [facility] MCHC (RBC) [Mass/Vol] 34.3 g/dL 31.0 - 37.0 g/dL [facility] MCV (RBC) [Entitic vol] 89.5 fL 80.0 - 100.0 fL [facility] Nucleated RBC (Bld) [#/Vol] 0 10*3/uL [facility] Nucleated RBC/100 WBC (Bld) [Ratio] 0 % [facility] Platelet mean volume (Bld) [Entitic vol] 9 fL Low 9.4 - 12.4 fL [facility] Platelets (Bld) [#/Vol] 297 10*3/uL [facility] RBC (Bld) [#/Vol] 3.32 10*6/uL Low [facility] ealt WBC (Bld) [#/Vol] 8.66 10*3/uL [facility] ealth [facility] CONSULTon 03-25-2024 CONSULT Normal [facility] ECG 12- Leadon 03-25-2024 Atrial Rate 109 BPM [facility] P [place] 51 degrees [facility] P-R Interval 176 ms [facility] Q-T Interval 328 ms [facility] QRS Duration 82 ms [facility] QTC Calculation (Bezet) 441 ms [facility] R [place] 14 degrees [facility] T [place] 37 degrees [facility] Ventricular Rate 109 BPM [facility] th MUSE [facility] EKGon 03-25-2024 [facility] Glucose (Bld) [Mass/Vol]on 05-25-2023 Glucose [Mass/Vol] 117 mg/dL High 65 - 99 mg/dL [facility] Interpretation and review of laboratory results Abnormal [facility] Glucose [Mass/Vol] 142 mg/dL High 65 - 99 mg/dL [facility] Interpretation and review of laboratory results Abnormal [facility] Glucose [Mass/Vol] 148 mg/dL High 65 - 99 mg/dL [facility] Interpretation and review of laboratory results Abnormal [facility] Glucose [Mass/Vol] 286 mg/dL High 65 - 99 mg/dL [facility] Interpretation and review of laboratory results Abnormal [facility] Glucose [Mass/Vol] 343 mg/dL High 65 - 99 mg/dL [facility] Interpretation and review of laboratory results Abnormal [facility] Glucose [Mass/Vol] 469 mg/dL Critically high 65 - 9 9 mg/dL [facility] Interpretation and review of laboratory results Abnormal [facility] Glucose [Mass/Vol] mg/dL Critically high 65 - 9 9 mg/dL [facility] Interpretation and review of laboratory results Abnormal [facility] Gold Topon 03-25-2024 Extra Tube Hold [facility]. [facility] H AND Paulino 03-25-2024 H AND P Normal [facility] LACTIC ACID, PLASMAon 2023 LACTIC ACID, PLASMA 2.1 mmol/L High 0.6-2.0 [facility] Comment on above: Performed By: #### 4 6053 ####[facility] [address] [place], [place] [address] Abbi Choudhary M.D. [id number] Lactate [Moles/Vol]on 2023 Interpretation and review of laboratory results Abnormal [facility] Lactic Acid, Plasmaon 2023 Lactate [Moles/Vol] 2.1 mmol/L High 0.6 - 2. 0 mmol/L [facility] Glucose [Mass/Vol] 117 mg/dL [address] Comment on above: Performed By: #### 4 6932 ####[facility] [address] [place], [place] [address] Abbi Choudhary M.D. [id number] Glucose [Mass/Vol] 142 mg/dL [address] Comment on above: Performed By: #### 4 6932 ####[facility] [address] [place], [place] [address] Abbi Choudhary M.D. [id number] Glucose [Mass/Vol] 148 mg/dL [address] Comment on above: Performed By: #### 4 6932 ####[facility] [address] [place], [place] [address] Abbi Choudhary M.D. [id number] Glucose [Mass/Vol] 286 mg/dL [address] Comment on above: Performed By: #### 4 6932 ####[facility] [address] [place], [place] [address] Abbi Choudhary M.D. [id number] Glucose [Mass/Vol] 343 mg/dL [address] Comment on above: Performed By: #### 4 6932 ####[facility] [address] [place], [place] [address] Abbi Choudhary M.D. [id number] Glucose [Mass/Vol] 469 mg/dL Off scale high 65-99 [facility] Comment on above: Order Comment: Criti marquita result acted upon time of test. Test performed at bedside. Performed By: #### 4 6932 ####[facility] [address] [place], [place] [address] Abbi Choudhary M.D. [id number] POC GLUCOSE > Off scale high 65-99 [facility] Comment on above: Order Comment: Criti marquita result acted upon time of test. Test performed at bedside. Performed By: #### 4 6932 ####[facility] [address] [place], [place] [address] Abbi Choudhary M.D. [id number] REFLEX LACTIC ACID, PLASMAon 03-25-2024 LACTIC ACID, PLASMA 1.2 mmol/L Normal 0.6-2.0 [facility] Comment on above: Performed By: #### L [id number] ####[facility] [address] [place], [place] [address] Abbi Choudhary M.D. [id number] LACTIC ACID, PLASMA 2.2 mmol/L High 0.6-2.0 [facility] Comment on above: Performed By: #### L [id number] ####[facility] [address] [place], [place] [address] Abbi Choudhary M.D. [id number] Reflex Lactic Acid, Plasmaon 03-25-2024 Interpretation and review of laboratory results Normal [facility] Lactate [Moles/Vol] 1.2 mmol/L 0.6 - 2. 0 mmol/L [facility] Interpretation and review of laboratory results Abnormal [facility] Lactate [Moles/Vol] 2.2 mmol/L High 0.6 - 2. 0 mmol/L [facility] URINALYSISon 03-25-2024 BACTERIA, URINE Rare Abnormal None Seen [facility] Comment on above: Order Comment: Micro scopic examination is performed on all urinalysis samples and only positive findings are reported. The test for blood on the chemical analytic portion of urinalysis may also be positive due to hemoglobinuria and myoglobinuria and if red blood cells are present they are quantified by microscopic examination. Performed By: #### 4 6625 ####[facility] [address] [address] Abbi Choudhary M.D. [id number] BILIRUBIN, URINE Negative Normal Negative [facility] Comment on above: Order Comment: Micro scopic examination is performed on all urinalysis samples and only positive findings are reported. The test for blood on the chemical analytic portion of urinalysis may also be positive due to hemoglobinuria and myoglobinuria and if red blood cells are present they are quantified by microscopic examination. Performed By: #### 4 6625 ####[facility] [address] [address] Abbi Choudhary M.D. [id number] BLOOD, URINE Moderate Abnormal Negative [facility] Comment on above: Order Comment: Micro scopic examination is performed on all urinalysis samples and only positive findings are reported. The test for blood on the chemical analytic portion of urinalysis may also be positive due to hemoglobinuria and myoglobinuria and if red blood cells are present they are quantified by microscopic examination. Performed By: #### 4 6625 ####[facility] [address] [place], [place] [address] Abbi Choudhary M.D. [id number] Clarity (U) Clear Normal Clear [facility] Comment on above: Order Comment: Micro scopic examination is performed on all urinalysis samples and only positive findings are reported. The test for blood on the chemical analytic portion of urinalysis may also be positive due to hemoglobinuria and myoglobinuria and if red blood cells are present they are quantified by microscopic examination. Performed By: #### 4 6625 ####[facility] [address] [place], [place] [address] Abbi Choudhary M.D. [id number] Color (U) Yellow Normal Colorless, Yellow [facility] Comment on above: Order Comment: Micro scopic examination is performed on all urinalysis samples and only positive findings are reported. The test for blood on the chemical analytic portion of urinalysis may also be positive due to hemoglobinuria and myoglobinuria and if red blood cells are present they are quantified by microscopic examination. Performed By: #### 4 6625 ####[facility] [address] [place], [place] [address] Abbi Choudhary M.D. [id number] Glucose Ql (U) >=500 Abnormal Negative [facility] Comment on above: Order Comment: Micro scopic examination is performed on all urinalysis samples and only positive findings are reported. The test for blood on the chemical analytic portion of urinalysis may also be positive due to hemoglobinuria and myoglobinuria and if red blood cells are present they are quantified by microscopic examination. Performed By: #### 4 6625 ####[facility] [address] [place] [id number] Abbi Choudhary M.D. [id number] Ketones Ql (U) Negative Normal Negative [facility] Comment on above: Order Comment: Micro scopic examination is performed on all urinalysis samples and only positive findings are reported. The test for blood on the chemical analytic portion of urinalysis may also be positive due to hemoglobinuria and myoglobinuria and if red blood cells are present they are quantified by microscopic examination. Performed By: #### 4 6625 ####[facility] [address] [place], [place] [address] Abbi Choudhary M.D. [id number] Leukocyte esterase Test strip Ql (U) Negative Normal Negative [facility] Comment on above: Order Comment: Micro scopic examination is performed on all urinalysis samples and only positive findings are reported. The test for blood on the chemical analytic portion of urinalysis may also be positive due to hemoglobinuria and myoglobinuria and if red blood cells are present they are quantified by microscopic examination. Performed By: #### 4 6625 ####[facility] [address] [place], [place] [address] Abbi Choudhary M.D. [id number] MUCUS, URINE Rare Normal None Seen, Rare [facility] Comment on above: Order Comment: Micro scopic examination is performed on all urinalysis samples and only positive findings are reported. The test for blood on the chemical analytic portion of urinalysis may also be positive due to hemoglobinuria and myoglobinuria and if red blood cells are present they are quantified by microscopic examination. Performed By: #### 4 6625 ####[facility] [address] [address] Abbi Choudhary M.D. [id number] NITRITE, URINE Negative Normal Negative [facility] Comment on above: Order Comment: Micro scopic examination is performed on all urinalysis samples and only positive findings are reported. The test for blood on the chemical analytic portion of urinalysis may also be positive due to hemoglobinuria and myoglobinuria and if red blood cells are present they are quantified by microscopic examination. Performed By: #### 4 [id number] ####[facility] [address] [address] Abbi Choudhary M.D. [id number] pH (U) 5.0 [pH] Normal 5.0-7.0 [facility] Comment on above: Order Comment: Micro scopic examination is performed on all urinalysis samples and only positive findings are reported. The test for blood on the chemical analytic portion of urinalysis may also be positive due to hemoglobinuria and myoglobinuria and if red blood cells are present they are quantified by microscopic examination. Performed By: #### 4 [id number] ####[facility] [address] [address] Abbi Choudhary M.D. [id number] Protein (U) [Mass/Vol] 100 mg/dL Abnormal Negative [facility] Comment on above: Order Comment: Micro scopic examination is performed on all urinalysis samples and only positive findings are reported. The test for blood on the chemical analytic portion of urinalysis may also be positive due to hemoglobinuria and myoglobinuria and if red blood cells are present they are quantified by microscopic examination. Performed By: #### 4 [id number] ####[facility] [address] [address] Abbi Choudhary M.D. [id number] RBC LM.HPF (Urine sed) [#/Area] 2 /[HPF] Normal 0-3 [facility] Comment on above: Order Comment: Micro scopic examination is performed on all urinalysis samples and only positive findings are reported. The test for blood on the chemical analytic portion of urinalysis may also be positive due to hemoglobinuria and myoglobinuria and if red blood cells are present they are quantified by microscopic examination. Performed By: #### 4 [id number] ####[facility] [address] [address]Alisia Choudhary M.D. [id number] Specific gravity (U) [Rel density] 1.021 Normal 1.005-1.025 [facility] Comment on above: Order Comment: Micro scopic examination is performed on all urinalysis samples and only positive findings are reported. The test for blood on the chemical analytic portion of urinalysis may also be positive due to hemoglobinuria and myoglobinuria and if red blood cells are present they are quantified by microscopic examination. Performed By: #### 4 [id number] ####[facility] [address] [place] [address] Abbi Choudhary M.D. [id number] SQUAMOUS EPITHELIAL 2 /hpf Normal 0-4 [facility] Comment on above: Order Comment: Micro scopic examination is performed on all urinalysis samples and only positive findings are reported. The test for blood on the chemical analytic portion of urinalysis may also be positive due to hemoglobinuria and myoglobinuria and if red blood cells are present they are quantified by microscopic examination. Performed By: #### 4 [id number] ####[facility] [address] [place] [address] Abbi Choudhary M.D. [id number] UROBILINOGEN, URINE <2.0 Normal <2.0 [facility] Comment on above: Order Comment: Micro scopic examination is performed on all urinalysis samples and only positive findings are reported. The test for blood on the chemical analytic portion of urinalysis may also be positive due to hemoglobinuria and myoglobinuria and if red blood cells are present they are quantified by microscopic examination. Performed By: #### 4 [id number] ####[facility] [address] [place] [address] Abbi Choudhary M.D. [id number] WBC LM.HPF (Urine sed) [#/Area] 5 /[HPF] Normal 0-5 [facility] Comment on above: Order Comment: Micro scopic examination is performed on all urinalysis samples and only positive findings are reported. The test for blood on the chemical analytic portion of urinalysis may also be positive due to hemoglobinuria and myoglobinuria and if red blood cells are present they are quantified by microscopic examination. Performed By: #### 4 [id number] ####[facility] [address] [place], [place] [address] Abbi Choudhary M.D. [id number] URINE AEROBIC CULTUREon URINE AEROBIC CULTURE Abnormal [facility] Comment on above: Performed By: #### 4 4053 ####[facility] [address], [place] [address] Swapnil Brewer M.D. [id number] UrinalysisOrdered By: Navneet Parr on 03-25-2024 Bacteria Auto Ql (U) Rare Abnormal None Se en /hpf [facility] Bilirubin Ql (U) Negative Negative [facility] Clarity Refractometry automated (U) Clear Clear [facility] Color (U) Yellow Colorless, Yellow [facility] Epithelial cells.squamous Auto (Urine sed) [#/Area] 2 [facility] Glucose Auto test strip (U) [Mass/Vol] >=500 Abnormal Negative mg/dL [facility] Hemoglobin Auto test strip Ql (U) Moderate Abnormal Negative [facility] Interpretation and review of laboratory results Abnormal [facility] Ketones (U) [Mass/Vol] Negative Negative mg/dL [facility] Leukocyte esterase Auto test strip Ql (U) Negative Negative [facility] Mucus Auto (Urine sed) [#/Area] Rare None Seen, Rare /lpf [facility] Nitrite Auto test strip Ql (U) Negative Negative [facility] pH (U) 5 [pH] 5.0 - 7.0 [facility] Protein (U) [Mass/Vol] 100 mg/dL Abnormal Negative [facility] RBC Auto (Urine sed) [#/Area] 2 [facility] Specific gravity (U) [Rel density] 1.021 1.005 - 1.025 [facility] Urobilinogen (U) [Mass/Vol] mg/dL NINF - 2.0 mg/dL [facility] WBC Auto (Urine sed) [#/Area] 5 [facility] WOUND AEROBIC AND ANAEROBIC CULTUREon 03-25-2024 WOUND AEROBIC AND ANAEROBIC CULTURE CULTURE No Growth after 5 days GRAM STAIN RESULT Few WBC Many RBC No Organisms Seen Normal [facility] Comment on above: Performed By: #### 4 [id number] ####[facility] [address] [place] [address] Swapnil Brewer M.D. [id number] WOUND AEROBIC AND ANAEROBIC CULTURE Abnormal [facility] Comment on above: Performed By: #### 4 4287 ####[facility] [address] [place] [address] Swapnil Brewer M.D. [id number] BASIC METABOLIC PANELon 10-3 Anion gap [Moles/Vol] 20 mmol/L Normal 10-20 [facility] Comment on above: Order Comment: [facility] has implemented the eGFR calculation approach that does not have a coefficient for race that conforms to the NKF-ASN Task Force Recommendations. Performed By: #### 4 6124 ####[facility] [address] [place] [address] Abib Choudhary M.D. [id number] Calcium [Mass/Vol] 9.3 mg/dL Normal 8.4-10.2 [facility] Comment on above: Order Comment: [facility] [employer] has implemented the eGFR calculation approach that does not have a coefficient for race that conforms to the NKF-ASN Task Force Recommendations. Performed By: #### 4 6124 #### [facility] [address] [place], [place] [address] Abbi Choudhary M.D. [id number] Chloride [Moles/Vol] 97 mmol/L Low 98-108 [facility] Comment on above: Order Comment: [facility] has implemented the eGFR calculation approach that does not have a coefficient for race that conforms to the NKF-ASN Task Force Recommendations. Performed By: #### 4 6124 ####[facility] [address] [place], [place] [address] Abbi Choudhary M.D. [id number] Creatinine [Mass/Vol] 1.44 mg/dL High 0.40-1.10 [facility] Comment on above: Order Comment: [facility] has implemented the eGFR calculation approach that does not have a coefficient for race that conforms to the NKF-ASN Task Force Recommendations. Performed By: #### 4 6124 ####[facility] [address] [place], [place] Julio Choudhary M.D. [id number] EGFR 46 mL/min/1.73 m2 Low >=60 [facility] Comment on above: Order Comment: [facility] [employer] has implemented the eGFR calculation approach that does not have a coefficient for race that conforms to the NKF-ASN Task Force Recommendations. Result Comment: Lorie mated GFR was calculated using the 2020 CKD-EPI creatinine equation. Performed By: #### 4 6124 ####[facility] [address] [place] [address] Julio Choudhary M.D. [id number] Glucose [Mass/Vol] 646 mg/dL Off scale high 65-99 [facility] Comment on above: Order Comment: [facility] [employer] has implemented the eGFR calculation approach that does not have a coefficient for race that conforms to the NKF-ASN Task Force Recommendations. Performed By: #### 4 6124 ####[facility] [address] [place], [place] [address] Abbi Choudhary M.D. [id number] HCO3 (Bld) [Moles/Vol] 22 mmol/L Normal 21-32 [facility] Comment on above: Order Comment: [facility] [employer] has implemented the eGFR calculation approach that does not have a coefficient for race that conforms to the NKF-ASN Task Force Recommendations. Performed By: #### 4 6124 ####[facility] [address] [place], [place] [address] Abbi Choudhary M.D. [id number] Potassium [Moles/Vol] 4.6 mmol/L Normal 3.5-5.1 [facility] Comment on above: Order Comment: [facility] [employer] has implemented the eGFR calculation approach that does not have a coefficient for race that conforms to the NKF-ASN Task Force Recommendations. Performed By: #### 4 6124 ####[facility] [address], [place] [address]Alisia Choudhary M.D. [id number] Sodium [Moles/Vol] 134 mmol/L Low 135-145 [facility] Comment on above: Order Comment: [facility] has implemented the eGFR calculation approach that does not have a coefficient for race that conforms to the NKF-ASN Task Force Recommendations. Performed By: #### 4 6124 ####[facility] [address] [place], [place] [address] Abbi Choudhary M.D. [id number] Urea nitrogen [Mass/Vol] 24 mg/dL Normal 8-25 [facility] Comment on above: Order Comment: [facility] has implemented the eGFR calculation approach that does not have a coefficient for race that conforms to the NKF-ASN Task Force Recommendations. Performed By: #### 4 6124 ####[facility] [address] [place], [place] [address] Abbi Choudhary M.D. [id number] Urea nitrogen/Creatinine [Mass ratio] 16.7 mg/mg Normal 10.0-20.0 [facility] Comment on above: Order Comment: [facility] has implemented the eGFR calculation approach that does not have a coefficient for race that conforms to the NKF-ASN Task Force Recommendations. Performed By: #### 4 6124 ####[facility] [address] [place], [place] [address] Abbi Choudhary M.D. [id number] BLOOD GAS, VENOUSon 03-24-20 24 BASE EXCESS, VENOUS -3.8 Low -2.0-2.0 [facility] Comment on above: Performed By: #### 4 6733 ####[facility] [address] [place], [place] [address] Abbi Choudhary M.D. [id number] HCO3 (Bld) [Moles/Vol] 22.3 mmol/L Low 24.0-28.0 [facility] Comment on above: Performed By: #### 4 [id number] ####[facility] [address] [place], [place] [address] Abbi Choudhary M.D. [id number] Hematocrit (Bld) [Volume fraction] 40.0 % Normal 36.0-46.0 [facility] Comment on above: Performed By: #### 4 [id number] ####[facility] [address] [place], [place] [address] Abbi Choudhary M.D. [id number] Hemoglobin (Bld) [Mass/Vol] 13.0 g/dL Normal 12.0-16.0 [facility] Comment on above: Performed By: #### 4 [id number] ####[facility] [address] [address] Abbi Choudhary M.D. [id number] Oxygen saturation in Blood 69.9 % Normal 40.0-70.0 [facility] Comment on above: Performed By: #### 4 [id number] ####[facility] [address] [place], [place] [address] Abbi Choudhary M.D. [id number] PCO2 VENOUS 47.4 mm Hg Normal 41.0-51.0 [facility] Comment on above: Performed By: #### 4 [id number] ####[facility] [address] [address] Abbi Choudhary M.D. [id number] PH VENOUS 7.30 Low 7.32-7.42 [facility] Comment on above: Performed By: #### 4 [id number] ####[facility] [address] [address] Abbi Choudhary M.D. [id number] PO2 VENOUS 41 mm Hg High 25-40 [facility] Comment on above: Performed By: #### 4 [id number] ####[facility] [address] [address] Abbi Choudhary M.D. [id number] Basic metabolic 2000 panelOr dered By: Kendra Bae on 03-24-2024 Anion gap [Moles/Vol] 20 mmol/L 10 - 2 0 mmol/L [facility] Calcium [Mass/Vol] 9.3 mg/dL 8.4 - 10. 2 mg/dL [facility] Chloride [Moles/Vol] 97 mmol/L Low 98 - 10 8 mmol/L [facility] Creatinine [Mass/Vol] 1.44 mg/dL High 0.40 - 1.10 mg/dL [facility] GFR/1.73 sq M.predicted CKD-EPI (S/P/Bld) [Vol rate/Area] 46 Low - PINF [facility] Glucose [Mass/Vol] 646 mg/dL Critically high 65 - 9 9 mg/dL [facility] HCO3 [Moles/Vol] 22 mmol/L 21 - 32 mmol/L [facility] Interpretation and review of laboratory results Abnormal [facility] Potassium [Moles/Vol] 4.6 mmol/L 3.5 - 5.1 mmol/L [facility] Sodium [Moles/Vol] 134 mmol/L Low 135 - 145 mmol/L [facility] Urea nitrogen [Mass/Vol] 24 mg/dL 8 - 25 mg/dL [facility] Urea nitrogen/Creatinine [Mass ratio] 16.7 mg/mg 10.0 - 20.0 [facility] CBC Auto Differentialon 02-24 Basophils (Bld) [#/Vol] 0.06 10*3/uL [facility] Basophils/100 WBC (Bld) 0.6 % [facility] Eosinophils (Bld) [#/Vol] 0.33 10*3/uL [facility] Eosinophils/100 WBC (Bld) 3.5 % [facility] Erythrocyte distribution width (RBC) [Entitic vol] 13 % 11.6 - 14.8 % [facility] Hematocrit (Bld) [Volume fraction] 37.6 % 36.0 - 46.0 % [facility] Hemoglobin (Bld) [Mass/Vol] 12.5 g/dL 12.0 - 16.0 g/dL [facility] Immature granulocytes (Bld) [#/Vol] 0.05 10*3/uL [facility] Immature granulocytes/100 WBC (Bld) 0.5 % [facility] Interpretation and review of laboratory results Abnormal [facility] Lymphocytes (Bld) [#/Vol] 1.34 10*3/uL [facility] Lymphocytes/100 WBC (Bld) 14 % [facility] MCH (RBC) [Entitic mass] 30.3 pg 26.0 - 34.0 pg [facility] MCHC (RBC) [Mass/Vol] 33.2 g/dL 31.0 - 37.0 g/dL [facility] MCV (RBC) [Entitic vol] 91 fL 80.0 - 100.0 fL [facility] Monocytes (Bld) [#/Vol] 0.43 10*3/uL [facility] Monocytes/100 WBC (Bld) 4.5 % [facility] Neutrophils (Bld) [#/Vol] 7.35 10*3/uL High [facility] Neutrophils/100 WBC (Bld) 76.9 % [facility] Nucleated RBC (Bld) [#/Vol] 0 10*3/uL [facility] Nucleated RBC/100 WBC (Bld) [Ratio] 0 % [facility] Platelet mean volume (Bld) [Entitic vol] 9.4 fL 9.4 - 12.4 fL [facility] Platelets (Bld) [#/Vol] 371 10*3/uL [facility] RBC (Bld) [#/Vol] 4.13 10*6/uL [facility] WBC (Bld) [#/Vol] 9.56 10*3/uL [facility] CBC WITH AUTO DIFFERENTIALon 03-24-2024 AUTO NRBC 0.0 % Normal [facility] Comment on above: Performed By: #### L [id number] ####[facility] [address] [address] Abbi Choudhary M.D. [id number] AUTO NRBC ABS COUNT 0.00 K/mcL Normal 0.00-0.00 [facility] Comment on above: Performed By: #### L [id number] ####[facility] [address] [address] Abbi Choudhary M.D. [id number] BASOPHILS ABSOLUTE COUNT 0.06 K/mcL Normal 0.00-0.30 [facility] Comment on above: Performed By: #### L [id number] ####[facility] [address] [address] Abbi Choudhary M.D. [id number] Basophils/100 WBC (Bld) 0.6 % Normal [facility] Comment on above: Performed By: #### L [id number] ####[facility] [address] [address] Abbi Choudhary M.D. [id number] Eosinophils (Bld) [#/Vol] 0.33 10*3/uL Normal 0.00-0.50 [facility] Comment on above: Performed By: #### L [id number] ####[facility] [address] [address] Abbi Choudhary M.D. [id number] Eosinophils/100 WBC (Bld) 3.5 % Normal [facility] Comment on above: Performed By: #### L [id number] ####[facility] [address] [address] Abbi Choudhary M.D. [id number] Erythrocyte distribution width (RBC) [Ratio] 13.0 % Normal 11.6-14.8 [facility] Comment on above: Performed By: #### L [id number] ####[facility] [address] [address] Abbi Choudhary M.D. [id number] Hematocrit (Bld) [Volume fraction] 37.6 % Normal 36.0-46.0 [facility] Comment on above: Performed By: #### L [id number] ####[facility] [address] [address] Abbi Choudhary M.D. [id number] Hemoglobin (Bld) [Mass/Vol] 12.5 g/dL Normal 12.0-16.0 [facility] Comment on above: Performed By: #### L [id number] ####[facility] [address] [address]Alisia Choudhary M.D. [id number] IG ABSOLUTE 0.05 K/mcL Normal 0.00-0.30 [facility] Comment on above: Performed By: #### L [id number] ####[facility] [address] [address] Abbi Choudhary M.D. [id number] IG PERCENT 0.50 % Normal [facility] Comment on above: Result Comment: The IG parameter is the percentage of metamyelocytes, myelocytes and promyelocytes. An immature granulocyte count (IG) of 1% or more suggests the possibility of infection, an IG count of 3% is very likely related to an infection. Performed By: #### L [id number] ####[facility] [address] [address] Abbi Choudhary M.D. [id number] Lymphocytes (Bld) [#/Vol] 1.34 10*3/uL Normal 0.90-4.00 [facility] Comment on above: Performed By: #### L [id number] ####[facility] [address] [place], [place] [address] Abbi Choudhary M.D. [id number] Lymphocytes/100 WBC (Bld) 14.0 % Normal [facility] Comment on above: Performed By: #### L [id number] ####[facility] [address] [place], [place] [address] Abbi Choudhary M.D. [id number] MCH (RBC) [Entitic mass] 30.3 pg Normal 26.0-34.0 [facility] Comment on above: Performed By: #### L [id number] ####[facility] [address] [address] Abbi Choudhary M.D. [id number] MCV (RBC) [Entitic vol] 91.0 fL Normal 80.0-100.0 [facility] Comment on above: Performed By: #### L [id number] ####[facility] [address] [address] Abbi Choudhary M.D. [id number] MEAN CORPUSCULAR HEMOGLOBIN CONC 33.2 g/dL Normal 31.0-37.0 [facility] Comment on above: Performed By: #### L [id number] ####[facility] [address] [address] Abbi Choudhary M.D. [id number] Monocytes (Bld) [#/Vol] 0.43 10*3/uL Normal 0.30-0.90 [facility] Comment on above: Performed By: #### L [id number] ####[facility] [address] [place], [place] [address] Abbi Choudhary M.D. [id number] Monocytes/100 WBC (Bld) 4.5 % Normal [facility] Comment on above: Performed By: #### L [id number] ####[facility] [address] [address] Abbi Choudhary M.D. [id number] NEUTROPHILS ABSOLUTE COUNT 7.35 K/mcL High 1.70-7.00 [facility] Comment on above: Performed By: #### L [id number] ####[facility] [address] [place], [place] [address] Abbi Choudhary M.D. [id number] Neutrophils/100 WBC (Bld) 76.9 % Normal [facility] Comment on above: Performed By: #### L [id number] ####[facility] [address] [place], [place] [address] Abbi Choudhary M.D. [id number] Platelet mean volume (Bld) [Entitic vol] 9.4 fL Normal 9.4-12.4 [facility] Comment on above: Performed By: #### L [id number] ####[facility] [address] [place], [place] [address] Abbi Choudhary M.D. [id number] Platelets (Bld) [#/Vol] 371 10*3/uL Normal 150-400 [facility] Comment on above: Performed By: #### L [id number] ####[facility] [address] [place], [place] [address] Abbi Choudhary M.D. [id number] RBC (Bld) [#/Vol] 4.13 10*6/uL Normal 4.00-5.20 [facility] Comment on above: Performed By: #### L [id number] ####[facility] [address] [place], [place] [address] Abbi Choudhary M.D. [id number] WBC (Bld) [#/Vol] 9.56 10*3/uL Normal 4.50-11.00 [facility] Comment on above: Performed By: #### L [id number] ####[facility] [address] [place], [place] [address] Abbi Choudhary M.D. [id number] CRP [Mass/Vol]on 03-24-2024 Interpretation and review of laboratory results Abnormal [facility] CRP, INFLAMMATIONon 03-24-20 CRP [Mass/Vol] 15.1 mg/L High 0.0-10.0 [facility] Comment on above: Performed By: #### 4 [id number] ####[facility] [address] [place], [place] [address] Abbi Choudhary M.D. [id number] CRP, Inflammationon 03-24-20 CRP [Mass/Vol] 15.1 mg/L High 0.0 - 10.0 mg/L [facility] ED Prov Noteon 03-24-2024 ED Prov Note Normal [facility] ESR Westergren method (Bld) [Velocity]on 03-24-2024 ESR (Bld) [Velocity] 62 mm/h High [facility] Interpretation and review of laboratory results Abnormal [facility] Gas panel (BldV)on Base excess Calc (BldV) [Moles/Vol] -3.8000 mmol/L Low -2.0 - 2.0 [facility] CO2 (BldV) [Partial pressure] 47.4 mm[Hg] [facility] HCO3 (Bld) [Moles/Vol] 22.3 mmol/L Low 24.0 - 28.0 mmol/L [facility] Hematocrit (BldA) [Volume fraction] 40 % 36.0 - 46.0 % [facility] Hemoglobin (Bld) [Mass/Vol] 13 g/dL 12.0 - 16.0 g/dL [facility] Interpretation and review of laboratory results Abnormal [facility] Oxygen (BldV) [Partial pressure] 41 mm[Hg] High [facility] Oxygen saturation in Venous blood 69.9 % 40.0 - 70.0 % [facility] pH (BldV) 7.3 [pH] Low 7.32 - 7.42 [facility] HEPATIC FUNCTION PANELon Albumin [Mass/Vol] 4.2 g/dL Normal 3.2-5.2 [facility] Comment on above: Performed By: #### 4 [id number] ####[facility] [address] [place], [place] [address] Abbi Choudhary M.D. [id number] ALP [Catalytic activity/Vol] 139 U/L Normal 40-150 [facility] Comment on above: Performed By: #### 4 5866 ####[facility] [address] [place], [place] [address] Abbi Choudhary M.D. [id number] ALT [Catalytic activity/Vol] 16 U/L Normal 0-35 U/L [facility] Comment on above: Performed By: #### 4 [id number] ####[facility] [address] [place], [place] [address] Abbi Choudhary M.D. [id number] AST [Catalytic activity/Vol] 16 U/L Normal 0-35 U/L [facility] Comment on above: Performed By: #### 4 [id number] ####[facility] [address] [place], [place] [address] Abbi Choudhary M.D. [id number] Bilirubin [Mass/Vol] 0.5 mg/dL Normal 0.0-1.3 [facility] Comment on above: Performed By: #### 4 [id number] ####[facility] [address] [address] Abbi Choudhary M.D. [id number] BILIRUBIN, DIRECT < Normal 0.0-0.4 [facility] Comment on above: Performed By: #### 4 [id number] ####[facility] [address] [place], [place] [address] Abbi Choudhary M.D. [id number] Protein [Mass/Vol] 8.1 g/dL High 6.0-8.0 [facility] Comment on above: Performed By: #### 4 [id number] ####[facility] [address] [place], [place] [address] Abbi Choudhary M.D. [id number] Hepatic function 2000 panel n 03-24-2024 Albumin [Mass/Vol] 4.2 g/dL 3.2 - 5.2 g/dL [facility] ALP [Catalytic activity/Vol] 139 U/L 40 - 150 U/L [facility] ALT [Catalytic activity/Vol] 16 U/L 0-35 U/L [facility] AST [Catalytic activity/Vol] 16 U/L 0-35 U/L [facility] Bilirubin [Mass/Vol] 0.5 mg/dL 0.0 - 1 .3 mg/dL [facility] Bilirubin.conjugated [Mass/Vol] mg/dL 0.0 - 0.4 mg/dL [facility] Interpretation and review of laboratory results Abnormal [facility] Protein [Mass/Vol] 8.1 g/dL High 6.0 - 8.0 g/dL [facility] LACTIC ACID, WHOLE BLOODon 1 LACTIC ACID, WHOLE BLOOD 3.0 mmol/L High 0.6-2.0 [facility] Comment on above: Performed By: #### 1 1929 ####[facility] [address] [place], [place] [address] Abbi Choudhary M.D. [id number] Lactate (Bld) [Moles/Vol]on 03-24-2024 Interpretation and review of laboratory results Abnormal [facility] Lactate [Moles/Vol] 3 mmol/L High 0.6 - 2. 0 mmol/L [facility] Light Blue Topon 03-24-2024 Extra Tube Hold for add-ons. [facility] No Panel Informationon 03-24 [facility] SEDIMENTATION RATEon 024 SEDIMENTATION RATE, ERYTHROCYTE 62 mm/hr High 0-20 [facility] Comment on above: Performed By: #### 4 6477 ####[facility] [address] [place], [place] [address] Abbi Choudhary M.D. [id number] TROPONINon 03-24-2024 BASELINE TROPONIN T NG/L 22 ng/L Off scale high <=14 [facility] Comment on above: Performed By: #### 4 6608 ####[facility] [address] [place], [place] [address] Abbi Choudhary M.D. [id number] TROPONIN T INTERPRETATION Possible acute cardiac injury. Normal [facility] Comment on above: Performed By: #### 4 6608 ####[facility] [address] [place], [place] [address] Abbi Choudhary M.D. [id number] Troponinon 03-24-2024 Interpretation and review of laboratory results Abnormal [facility] Troponin T 22 ng/L Critically high NINF - 14 ng/L [facility] Troponin T Interpretation Possible acute cardiac injury. [facility] XR Finger - left 2 Viewson 1 GE RIS GE RIS [facility] Radiology Study observation (narrative) [facility] XR Finger - left 2 ViewsOrde red By: Mayco Cortez on 03-24-2024 [facility] Work Phone: XR TOE(S) LEFT 2+ VIEWSon XR TOE(S) LEFT 2+ VIEWS Normal [facility] Comment on above: Order [...] for children. Performed By: #### 4 96, 18228 #### [facility] [address], [address] [place] [id number] Acrobatic Rigger: Dean Maddox MD VITAMIN D,25-OH,TOTAL,IAon 1 VITAMIN [...] D, (D2,D3), LC/MS/MS is recommended: order code 30386 (patients >2yrs). See Note 1 Note 1 For additional information, please refer to [email or web address].Stereobot/faq/OWY624 (This link is being provided for informational/ educational purposes only.) Performed By: #### 4 96, 01243 #### [facility] [address], [address] [place] [address] Acrobatic Rigger: Dean Maddox MD B12/FOLATEon 02-11-2024 Cobalamin (Vitamin B12) [Mass/Vol] 203 pg/mL Low 232-1245 [facility] Comment on above: Performed By: #### 4 6967 ####[facility] [address] [place], [place] [address] Abbi Choudhary M.D. [id number] FOLATE 9.1 ng/mL Normal 3.1-17.5 [facility] Comment on above: Result Comment: Defi cient <2.2Borderline 2.2 - 3.0Excessive >17.5 Performed By: #### 4 6967 ####[facility] [address] [place], [place] [address] Abbi Choudhary M.D. [id number] B12/Folateon 02-11-2024 Cobalamin (Vitamin B12) [Mass/Vol] 203 pg/mL Low 232 - 1245 pg/mL [facility] Folate [Mass/Vol] 9.1 ng/mL 3.1 - 17.5 ng/mL [facility] Comment on above: Deficient <2.2 Borderline 2.2 - 3.0 Excessive >17.5 Interpretation and review of laboratory results Abnormal [facility] HEPATIC FUNCTION PANELon Albumin [Mass/Vol] 4.0 g/dL Normal 3.2-5.2 [facility] Comment on above: Performed By: #### 4 5866 ####[facility] [address] [place], [place] [address] Abbi Choudhary M.D. [id number] ALP [Catalytic activity/Vol] 139 U/L Normal 40-150 [facility] Comment on above: Performed By: #### 4 5866 ####[facility] [address] [place], [place] [address] Abbi Choudhary M.D. [id number] ALT [Catalytic activity/Vol] 13 U/L Normal 0-35 U/L [facility] Comment on above: Performed By: #### 4 5866 ####[facility] [address] [place], [place] [address] Abbi Choudhary M.D. [id number] AST [Catalytic activity/Vol] 17 U/L Normal 0-35 U/L [facility] Comment on above: Result Comment: Slig htly Hemolyzed Performed By: #### 4 5866 ####[facility] [address] [place], [place] [address] Abbi Choudhary M.D. [id number] Bilirubin [Mass/Vol] 0.4 mg/dL Normal 0.0-1.3 [facility] Comment on above: Performed By: #### 4 5866 ####[facility] [address] [place], [place] [address] Abbi Choudhary M.D. [id number] BILIRUBIN, DIRECT < Normal 0.0-0.4 [facility] Comment on above: Performed By: #### 4 5866 ####[facility] [address] [place], [place] [address] Abbi Choudhary M.D. [id number] Protein [Mass/Vol] 7.3 g/dL Normal 6.0-8.0 [facility] Comment on above: Performed By: #### 4 5866 ####[facility] [address] [place], [place] [address] Abbi Choudhary M.D. [id number] Hepatic function 2000 panelO rdered By: Shy Chou on 02-11-2024 Albumin [Mass/Vol] 4.0 g/dL 3.2 - 5.2 g/dL [facility] ALP [Catalytic activity/Vol] 139 U/L 40 - 150 U/L [facility] ALT [Catalytic activity/Vol] 13 U/L 0-35 U/L [facility] AST [Catalytic activity/Vol] 17 U/L 0-35 U/L [facility] Comment on above: Slightly Hemolyzed Bilirubin [Mass/Vol] 0.4 mg/dL 0.0 - 1 .3 mg/dL [facility] Bilirubin.conjugated [Mass/Vol] mg/dL 0.0 - 0.4 mg/dL [facility] Interpretation and review of laboratory results Normal [facility] Protein [Mass/Vol] 7.3 g/dL 6.0 - 8.0 g/dL [facility] T4, FREEon 02-11-2024 Free T4 [Mass/Vol] 0.9 ng/dL Normal 0.7-1.7 [facility] Comment on above: Performed By: #### 4 6567 ####[facility] [address] [place], [place] [address] Abbi Choudhary M.D. [id number] TSH WITH REFLEX FREE T4on TSH Qn 4.58 m[IU]/L High 0.27-4.20 [facility] Comment on above: Performed By: #### 4 6612 ####[facility] [address] [place], [place] [address] Abbi Choudhary M.D. [id number] CBCon 01-18-2024 AUTO NRBC 0.0 % Normal [facility] Comment on above: Performed By: #### 4 [id number] ####[facility] [address] [place], [place] [address] Abbi Choudhary M.D. [id number] AUTO NRBC ABS COUNT 0.00 K/mcL Normal 0.00-0.00 [facility] Comment on above: Performed By: #### 4 [id number] ####[facility] [address] [place], [place] [address] Abbi Choudhary M.D. [id number] Erythrocyte distribution width (RBC) [Ratio] 12.9 % Normal 11.6-14.8 [facility] Comment on above: Performed By: #### 4 [id number] ####[facility] [address] [place], [place] [address] Abbi Choudhary M.D. [id number] Hematocrit (Bld) [Volume fraction] 29.3 % Low 36.0-46.0 [facility] Comment on above: Performed By: #### 4 [id number] ####[facility] [address] [place], [place] [address] Abbi Choudhary M.D. [id number] Hemoglobin (Bld) [Mass/Vol] 9.1 g/dL Low 12.0-16.0 [facility] Comment on above: Performed By: #### 4 [id number] ####[facility] [address] [place], [place] [address] Abbi Choudhary M.D. [id number] MCH (RBC) [Entitic mass] 30.2 pg Normal 26.0-34.0 [facility] Comment on above: Performed By: #### 4 [id number] ####[facility] [address] [place], [place] [address] Abbi Choudhary M.D. [id number] MCV (RBC) [Entitic vol] 97.3 fL Normal 80.0-100.0 [facility] Comment on above: Performed By: #### 4 [id number] ####[facility] [address] [place], [place] [address] Abbi Choudhary M.D. [id number] MEAN CORPUSCULAR HEMOGLOBIN CONC 31.1 g/dL Normal 31.0-37.0 [facility] Comment on above: Performed By: #### 4 [id number] ####[facility] [address] [place], [place] [address] Abbi Choudhary M.D. [id number] Platelet mean volume (Bld) [Entitic vol] 9.1 fL Low 9.4-12.4 [facility] Comment on above: Performed By: #### 4 [id number] ####[facility] [address] [place], [place] [address] Abbi Choudhary M.D. [id number] Platelets (Bld) [#/Vol] 255 10*3/uL Normal 150-400 [facility] Comment on above: Performed By: #### 4 [id number] ####[facility] [address] [place], [place] [address] Abbi Choudhary M.D. [id number] RBC (Bld) [#/Vol] 3.01 10*6/uL Low 4.00-5.20 [facility] Comment on above: Performed By: #### 4 [id number] ####[facility] [address] [place], [place] [address] Abbi Choudhary M.D. [id number] WBC (Bld) [#/Vol] 7.67 10*3/uL Normal 4.50-11.00 [facility] Comment on above: Performed By: #### 4 [id number] ####[facility] [address] [place] [address] Abbi Choudhary M.D. [id number] CBC panel Auto (Bld)on 01-17 Erythrocyte distribution width (RBC) [Entitic vol] 12.9 % 11.6 - 14.8 % [facility] Hematocrit (Bld) [Volume fraction] 29.3 % Low 36.0 - 46.0 % [facility] Hemoglobin (Bld) [Mass/Vol] 9.1 g/dL Low 12.0 - 16.0 g/dL [facility] Interpretation and review of laboratory results Abnormal [facility] MCH (RBC) [Entitic mass] 30.2 pg 26.0 - 34.0 pg [facility] MCHC (RBC) [Mass/Vol] 31.1 g/dL 31.0 - 37.0 g/dL [facility] MCV (RBC) [Entitic vol] 97.3 fL 80.0 - 100.0 fL [facility] Nucleated RBC (Bld) [#/Vol] 0.00 10*3/uL [facility] Nucleated RBC/100 WBC (Bld) [Ratio] 0.0 % [facility] Platelet mean volume (Bld) [Entitic vol] 9.1 fL Low 9.4 - 12.4 fL [facility] Platelets (Bld) [#/Vol] 255 10*3/uL [facility] RBC (Bld) [#/Vol] 3.01 10*6/uL Low [facility] WBC (Bld) [#/Vol] 7.67 10*3/uL [facility] Disch Summon 01-18-2024 Disch Summ Normal [facility] Glucose (Bld) [Mass/Vol]on 0 01-18-2024 Glucose [Mass/Vol] 82 mg/dL 65 - 99 mg/dL [facility] Interpretation and review of laboratory results Normal [facility] Glucose [Mass/Vol] 71 mg/dL 65 - 99 mg/dL [facility] Interpretation and review of laboratory results Normal [facility] Glucose [Mass/Vol] 66 mg/dL 65 - 99 mg/dL [facility] Interpretation and review of laboratory results Normal [facility] POC GLUCOSE - Micky 024 Glucose [Mass/Vol] 82 mg/dL Normal 65-99 [facility] Comment on above: Performed By: #### 4 6932 ####[facility] [address] [place], [place] [address] Abbi Choudhary M.D. [id number] Glucose [Mass/Vol] 71 mg/dL Normal 65-99 [facility] Comment on above: Performed By: #### 4 6932 ####[facility] [address] [place], [place] [address] Abbi Choudhary M.D. [id number] Glucose [Mass/Vol] 66 mg/dL Normal 65-99 [facility] Comment on above: Performed By: #### 4 6932 ####[facility] [address] [place], [place] [address] Abbi Choudhary M.D. [id number] RENAL FUNCTION PANELon 01-17 Albumin [Mass/Vol] 3.2 g/dL Normal 3.2-5.2 [facility] Comment on above: Order Comment: [facility] has implemented the eGFR calculation approach that does not have a coefficient for race that conforms to the NKF-ASN Task Force Recommendations. Performed By: #### 4 6449 ####[facility] [address] [place], [place] [address] Abbi Choudhary M.D. [id number] Anion gap [Moles/Vol] 12 mmol/L Normal 10-20 [facility] Comment on above: Order Comment: [facility] has implemented the eGFR calculation approach that does not have a coefficient for race that conforms to the NKF-ASN Task Force Recommendations. Performed By: #### 4 6449 ####[facility] [address] [place], [place] [address] Abbi Choudhary M.D. [id number] Calcium [Mass/Vol] 8.6 mg/dL Normal 8.4-10.2 [facility] Comment on above: Order Comment: [facility] has implemented the eGFR calculation approach that does not have a coefficient for race that conforms to the NKF-ASN Task Force Recommendations. Performed By: #### 4 6449 ####[facility] [address] [place], [place] [address] Abbi Choudhary M.D. [id number] Chloride [Moles/Vol] 112 mmol/L High 98-108 [facility] Comment on above: Order Comment: [facility] has implemented the eGFR calculation approach that does not have a coefficient for race that conforms to the NKF-ASN Task Force Recommendations. Performed By: #### 4 6449 ####[facility] [address] [place], [place] [address] Abbi Choudhary M.D. [id number] Creatinine [Mass/Vol] 1.67 mg/dL High 0.40-1.10 [facility] Comment on above: Order Comment: [facility] has implemented the eGFR calculation approach that does not have a coefficient for race that conforms to the NKF-ASN Task Force Recommendations. Performed By: #### 4 6449 ####[facility] [address] [place] [address] Abbi Choudhary M.D. [id number] EGFR 38 mL/min/1.73 m2 Low >=60 [facility] Comment on above: Order Comment: [facility] [employer] has implemented the eGFR calculation approach that does not have a coefficient for race that conforms to the NKF-ASN Task Force Recommendations. Result Comment: Lorie mated GFR was calculated using the 2020 CKD-EPI creatinine equation. Performed By: #### 4 6449 ####[facility] [address] [place] [address] Abbi Choudhary M.D. [id number] Glucose [Mass/Vol] 78 mg/dL Normal 65-99 [facility] Comment on above: Order Comment: [facility] [employer] has implemented the eGFR calculation approach that does not have a coefficient for race that conforms to the NKF-ASN Task Force Recommendations. Performed By: #### 4 6449 ####[facility] [address] [place], [place] [address] Abbi Choudhary M.D. [id number] HCO3 (Bld) [Moles/Vol] 24 mmol/L Normal 21-32 [facility] Comment on above: Order Comment: [facility] has implemented the eGFR calculation approach that does not have a coefficient for race that conforms to the NKF-ASN Task Force Recommendations. Performed By: #### 4 6449 ####[facility] [address] [place], [place] [address] Abbi Choudhary M.D. [id number] Phosphate [Mass/Vol] 3.9 mg/dL Normal 2.7-4.5 [facility] Comment on above: Order Comment: [facility] has implemented the eGFR calculation approach that does not have a coefficient for race that conforms to the NKF-ASN Task Force Recommendations. Performed By: #### 4 6449 ####[facility] [address] [place], [place] [address] Abbi Choudhary M.D. [id number] Potassium [Moles/Vol] 4.6 mmol/L Normal 3.5-5.1 [facility] Comment on above: Order Comment: [facility] has implemented the eGFR calculation approach that does not have a coefficient for race that conforms to the NKF-ASN Task Force Recommendations. Performed By: #### 4 6449 ####[facility] [address] [place], [place] [address] Abbi Choudhary M.D. [id number] Sodium [Moles/Vol] 143 mmol/L Normal 135-145 [facility] Comment on above: Order Comment: [facility] [employer] has implemented the eGFR calculation approach that does not have a coefficient for race that conforms to the NKF-ASN Task Force Recommendations. Performed By: #### 4 6449 ####[facility] [address] [place], [place] [address] Abbi Choudhary M.D. [id number] Urea nitrogen [Mass/Vol] 34 mg/dL High 8-25 [facility] Comment on above: Order Comment: [facility] has implemented the eGFR calculation approach that does not have a coefficient for race that conforms to the NKF-ASN Task Force Recommendations. Performed By: #### 4 6449 ####[facility] [address] [place], [place] [address] Abbi Choudhary M.D. [id number] Urea nitrogen/Creatinine [Mass ratio] 20.4 mg/mg High 10.0-20.0 [facility] Comment on above: Order Comment: [facility] has implemented the eGFR calculation approach that does not have a coefficient for race that conforms to the NKF-ASN Task Force Recommendations. Performed By: #### 4 6449 ####[facility] [address] [place] [id number] Abbi Choudhary M.D. [id number] Renal function 2000 panelon 01-18-2024 Albumin [Mass/Vol] 3.2 g/dL 3.2 - 5.2 g/dL [facility] Anion gap [Moles/Vol] 12 mmol/L 10 - 2 0 mmol/L [facility] Calcium [Mass/Vol] 8.6 mg/dL 8.4 - 10. 2 mg/dL [facility] Chloride [Moles/Vol] 112 mmol/L High 98 - 10 8 mmol/L [facility] Creatinine [Mass/Vol] 1.67 mg/dL High 0.40 - 1.10 mg/dL [facility] GFR/1.73 sq M.predicted CKD-EPI (S/P/Bld) [Vol rate/Area] 38 Low - PINF [facility] Comment on above: Estimated GFR was ca lculated using the 2020 CKD-EPI creatinine equation. Glucose [Mass/Vol] 78 mg/dL 65 - 99 mg/dL [facility] HCO3 [Moles/Vol] 24 mmol/L 21 - 32 mmol/L [facility] Interpretation and review of laboratory results Abnormal [facility] Phosphate [Mass/Vol] 3.9 mg/dL 2.7 - 4 .5 mg/dL [facility] Potassium [Moles/Vol] 4.6 mmol/L 3.5 - 5.1 mmol/L [facility] Sodium [Moles/Vol] 143 mmol/L 135 - 145 mmol/L [facility] Urea nitrogen [Mass/Vol] 34 mg/dL High 8 - 25 mg/dL [facility] Urea nitrogen/Creatinine [Mass ratio] 20.4 mg/mg High 10.0 - 20.0 [facility] has implemented the eGFR calculation approach that does not have a coefficient for race that conforms to the NKF-ASN Task Force Recommendations. [facility] Kidney - bilateral and Ur inary bladderon 01-18-2024 1. Normal renal ultrasound. [employer] Workstation ID: [id number] [facility] EXAMINATION: US RENAL AND BLADDER HISTORY: SOLO [...] bladder filling defects. Bladder volume: 80 mL [facility] Anant Bonds MD - 01/18/2024 EXAMINATION: [...] 80 mL IMPRESSION: 1. Normal renal ultrasound. [employer] Workstation ID: [id number] [facility] Kidney - bilateral and Ur inary bladderOrdered By: Anant Bonds on 01-18-2024 [facility] AUTO NRBC 0.0 % Normal [facility] Comment on above: Performed By: #### 4 [id number] ####[facility] [address] [place], [place] [address] Abbi Choudhary M.D. [id number] AUTO NRBC ABS COUNT 0.00 K/mcL Normal 0.00-0.00 [facility] Comment on above: Performed By: #### 4 [id number] ####[facility] [address] [place], [place] [address] Abbi Choudhary M.D. [id number] Erythrocyte distribution width (RBC) [Ratio] 13.1 % Normal 11.6-14.8 [facility] Comment on above: Performed By: #### 4 [id number] ####[facility] [address] [place], [place] [address] Abbi Choudhary M.D. [id number] Hematocrit (Bld) [Volume fraction] 28.9 % Low 36.0-46.0 [facility] Comment on above: Performed By: #### 4 [id number] ####[facility] [address] [place], [place] [address] Abbi Choudhary M.D. [id number] Hemoglobin (Bld) [Mass/Vol] 9.3 g/dL Low 12.0-16.0 [facility] Comment on above: Performed By: #### 4 [id number] ####[facility] [address] [place], [place] [address] Abbi Choudhary M.D. [id number] MCH (RBC) [Entitic mass] 30.9 pg Normal 26.0-34.0 [facility] Comment on above: Performed By: #### 4 [id number] ####[facility] [address] [place], [place] [address] Abbi Choudhary M.D. [id number] MCV (RBC) [Entitic vol] 96.0 fL Normal 80.0-100.0 [facility] Comment on above: Performed By: #### 4 [id number] ####[facility] [address] [place], [place] [address] Abbi Choudhary M.D. [id number] MEAN CORPUSCULAR HEMOGLOBIN CONC 32.2 g/dL Normal 31.0-37.0 [facility] Comment on above: Performed By: #### 4 [id number] ####[facility] [address] [place], [place] [address] Abbi Choudhary M.D. [id number] Platelet mean volume (Bld) [Entitic vol] 9.9 fL Normal 9.4-12.4 [facility] Comment on above: Performed By: #### 4 [id number] ####[facility] [address] [place], [place] [address] Abbi Choudhary M.D. [id number] Platelets (Bld) [#/Vol] 259 10*3/uL Normal 150-400 [facility] Comment on above: Performed By: #### 4 [id number] ####[facility] [address] [place], [place] [address] Abbi Choudhary M.D. [id number] RBC (Bld) [#/Vol] 3.01 10*6/uL Low 4.00-5.20 [facility] Comment on above: Performed By: #### 4 [id number] ####[facility] [address] [place], [place] [address] Abbi Choudhary M.D. [id number] WBC (Bld) [#/Vol] 7.74 10*3/uL Normal 4.50-11.00 [facility] Comment on above: Performed By: #### 4 [id number] ####[facility] [address] [place], [place] [address] Abbi Choudhary M.D. [id number] CBC panel Auto (Bld)on 01-16 Erythrocyte distribution width (RBC) [Entitic vol] 13.1 % 11.6 - 14.8 % [facility] Hematocrit (Bld) [Volume fraction] 28.9 % Low 36.0 - 46.0 % [facility] Hemoglobin (Bld) [Mass/Vol] 9.3 g/dL Low 12.0 - 16.0 g/dL [facility] Interpretation and review of laboratory results Abnormal [facility] MCH (RBC) [Entitic mass] 30.9 pg 26.0 - 34.0 pg [facility] MCHC (RBC) [Mass/Vol] 32.2 g/dL 31.0 - 37.0 g/dL [facility] MCV (RBC) [Entitic vol] 96.0 fL 80.0 - 100.0 fL [facility] Nucleated RBC (Bld) [#/Vol] 0.00 10*3/uL [facility] Nucleated RBC/100 WBC (Bld) [Ratio] 0.0 % [facility] Platelet mean volume (Bld) [Entitic vol] 9.9 fL 9.4 - 12.4 fL [facility] Platelets (Bld) [#/Vol] 259 10*3/uL [facility] RBC (Bld) [#/Vol] 3.01 10*6/uL [facility] WBC (Bld) [#/Vol] 7.74 10*3/uL [facility] CT HEAD WITHOUT CONTRAST (ST ROKE)on 01-17-2024 CT HEAD WITHOUT CONTRAST (STROKE) Normal [facility] Comment on above: Order Comment: Injur y/Trauma or Illness?:Illness/OtherHow long have you had these symptoms (acute/chronic)?:AcuteReason for exam?:L sided parathesias, change in mentationType of Exam?:InitialAdditional signs and symptoms?:na CT Head WO contraston 2023 Negative for acute hemorrhage or acute intracranial process. Workstation ID: [id number] [facility] EXAMINATION: CT HEAD WITHOUT CONTRAST (STROKE) HISTORY: [...] polyneuropathy, with long-term current use of insulin ([facility]) COMPARISON: CTA head and neck 11/07/2023 TECHNIQUE: [...] There are no abnormal extraaxial fluid collections. [facility] Elvis Mae MD - 01/17/2024 EXAMINATION: CT [...] polyneuropathy, with long-term current use of insulin ([facility]) Z79.4 Type 2 diabetes mellitus with diabetic polyneuropathy, with long-term current use of insulin ([facility]) COMPARISON: CTA head and neck 11/07/2023 TECHNIQUE: [...] or acute intracranial process. Workstation ID: [id number] [facility] Radiology Study observation (narrative) [facility] CT Head WO contrastOrdered B y: Elvis Mae on 01-17-2024 [facility] Work Phone: Glucose (Bld) [Mass/Vol]on 0 01-17-2024 Glucose [Mass/Vol] 87 mg/dL 65 - 99 mg/dL [facility] Interpretation and review of laboratory results Normal [facility] Glucose [Mass/Vol] 255 mg/dL High 65 - 99 mg/dL [facility] Interpretation and review of laboratory results Abnormal [facility] Glucose [Mass/Vol] 93 mg/dL 65 - 99 mg/dL [facility] Interpretation and review of laboratory results Normal [facility] Glucose [Mass/Vol] 58 mg/dL Low 65 - 99 mg/dL [facility] Interpretation and review of laboratory results Abnormal [facility] Glucose [Mass/Vol] 86 mg/dL 65 - 99 mg/dL [facility] Interpretation and review of laboratory results Normal [facility] Glucose [Mass/Vol] 87 mg/dL Normal -[address] [place] [address] Comment on above: Performed By: #### 4 [id number] ####[facility] [address] [place], [place] [address] Abbi Choudhary M.D. [id number] Glucose [Mass/Vol] 255 mg/dL High [address] [place] [address] Comment on above: Performed By: #### 4 [id number] ####[facility] [address] [place], [place] [address] Abbi Choudhary M.D. [id number] Glucose [Mass/Vol] 93 mg/dL Normal [address] [place] [address] Comment on above: Performed By: #### 4 6932 ####[facility] [address] [place], [place] [address] Abbi Choudhary M.D. [id number] Glucose [Mass/Vol] 58 mg/dL Low [address] [place] [address] Comment on above: Performed By: #### 4 [id number] ####[facility] [address] [place], [place] [address] Abbi Choudhary M.D. [id number] Glucose [Mass/Vol] 86 mg/dL Normal [address] [place] [address] Comment on above: Performed By: #### 4 6932 ####[facility] [address] [place], [place] [address] Abbi Choudhary M.D. [id number] RENAL FUNCTION PANEL 01-16 Albumin [Mass/Vol] 3.2 g/dL Normal 3.2-5.2 [facility] Comment on above: Order Comment: [facility] has implemented the eGFR calculation approach that does not have a coefficient for race that conforms to the NKF-ASN Task Force Recommendations. Performed By: #### 4 6449 ####[facility] [address] [place], [place] [address] Abbi Choudhary M.D. [id number] Anion gap [Moles/Vol] 12 mmol/L Normal 10-20 [facility] Comment on above: Order Comment: [facility] has implemented the eGFR calculation approach that does not have a coefficient for race that conforms to the NKF-ASN Task Force Recommendations. Performed By: #### 4 [id number] ####[facility] [address] [place], [place] [address] Abbi Choudhary M.D. [id number] Calcium [Mass/Vol] 8.6 mg/dL Normal 8.4-10.2 [facility] Comment on above: Order Comment: [facility] has implemented the eGFR calculation approach that does not have a coefficient for race that conforms to the NKF-ASN Task Force Recommendations. Performed By: #### 4 [id number] ####[facility] [address] [place], [place] [address] Abbi Choudhary M.D. [id number] Chloride [Moles/Vol] 113 mmol/L High 98-108 [facility] Comment on above: Order Comment: [facility] has implemented the eGFR calculation approach that does not have a coefficient for race that conforms to the NKF-ASN Task Force Recommendations. Performed By: #### 4 6449 ####[facility] [address] [place], [place] [address] Abbi Choudhary M.D. [id number] Creatinine [Mass/Vol] 1.69 mg/dL High 0.40-1.10 [facility] Comment on above: Order Comment: [facility] has implemented the eGFR calculation approach that does not have a coefficient for race that conforms to the NKF-ASN Task Force Recommendations. Performed By: #### 4 6449 ####[facility] [address] [place], [place] [address] Abbi Choudhary M.D. [id number] EGFR 38 mL/min/1.73 m2 Low >=60 [facility] Comment on above: Order Comment: [facility] has implemented the eGFR calculation approach that does not have a coefficient for race that conforms to the NKF-ASN Task Force Recommendations. Result Comment: Lorie mated GFR was calculated using the 2020 CKD-EPI creatinine equation. Performed By: #### 4 [id number] ####[facility] [address] [place], [place] [address] Abbi Choudhary M.D. [id number] Glucose [Mass/Vol] 127 mg/dL High 65-99 [facility] Comment on above: Order Comment: [facility] has implemented the eGFR calculation approach that does not have a coefficient for race that conforms to the NKF-ASN Task Force Recommendations. Performed By: #### 4 6449 ####[facility] [address] [place], [place] [address] Abbi Choudhary M.D. [id number] HCO3 (Bld) [Moles/Vol] 23 mmol/L Normal 21-32 [facility] Comment on above: Order Comment: [facility] has implemented the eGFR calculation approach that does not have a coefficient for race that conforms to the NKF-ASN Task Force Recommendations. Performed By: #### 4 6449 ####[facility] [address] [place], [place] [address] Abbi Choudhary M.D. [id number] Phosphate [Mass/Vol] 3.7 mg/dL Normal 2.7-4.5 [facility] Comment on above: Order Comment: [facility] has implemented the eGFR calculation approach that does not have a coefficient for race that conforms to the NKF-ASN Task Force Recommendations. Performed By: #### 4 6449 ####[facility] [address] [place], [place] [address] Abbi Choudhary M.D. [id number] Potassium [Moles/Vol] 4.8 mmol/L Normal 3.5-5.1 [facility] Comment on above: Order Comment: [facility] has implemented the eGFR calculation approach that does not have a coefficient for race that conforms to the NKF-ASN Task Force Recommendations. Result Comment: Slig htly Hemolyzed Performed By: #### 4 6449 ####[facility] [address] [place], [place] [address] Abbi Choudhary M.D. [id number] Sodium [Moles/Vol] 143 mmol/L Normal 135-145 [facility] Comment on above: Order Comment: [facility] has implemented the eGFR calculation approach that does not have a coefficient for race that conforms to the NKF-ASN Task Force Recommendations. Performed By: #### 4 6449 ####[facility] [address] [place], [place] [address] Abbi Choudhary M.D. [id number] Urea nitrogen [Mass/Vol] 30 mg/dL High 01-16 [facility] Comment on above: Order Comment: [facility] has implemented the eGFR calculation approach that does not have a coefficient for race that conforms to the NKF-ASN Task Force Recommendations. Performed By: #### 4 6449 #### LAB [address] [place], [place] [address] Abbi Choudhary M.D. [id number] Urea nitrogen/Creatinine [Mass ratio] 17.8 mg/mg Normal 10.0-20.0 [facility] Comment on above: Order Comment: [facility] has implemented the eGFR calculation approach that does not have a coefficient for race that conforms to the NKF-ASN Task Force Recommendations. Performed By: #### 4 6449 #### LAB [address] [place], [place] [address] Abbi Choudhary M.D. [id number] Renal function 2000 panelOrd ered By: Janelle Juarez on 01-17-2024 Albumin [Mass/Vol] 3.2 g/dL 3.2 - 5.2 g/dL [facility] Anion gap [Moles/Vol] 12 mmol/L 10 - 2 0 mmol/L [facility] Calcium [Mass/Vol] 8.6 mg/dL 8.4 - 10. 2 mg/dL [facility] Chloride [Moles/Vol] 113 mmol/L High 98 - 10 8 mmol/L [facility] Creatinine [Mass/Vol] 1.69 mg/dL High 0.40 - 1.10 mg/dL [facility] GFR/1.73 sq M.predicted CKD-EPI (S/P/Bld) [Vol rate/Area] 38 Low - PINF [facility] Comment on above: Estimated GFR was ca lculated using the 2020 CKD-EPI creatinine equation. Glucose [Mass/Vol] 127 mg/dL High 65 - 99 mg/dL [facility] HCO3 [Moles/Vol] 23 mmol/L 21 - 32 mmol/L [facility] Interpretation and review of laboratory results Abnormal [facility] Phosphate [Mass/Vol] 3.7 mg/dL 2.7 - 4 .5 mg/dL [facility] Potassium [Moles/Vol] 4.8 mmol/L 3.5 - 5.1 mmol/L [facility] Comment on above: Slightly Hemolyzed Sodium [Moles/Vol] 143 mmol/L 135 - 145 mmol/L [facility] Urea nitrogen [Mass/Vol] 30 mg/dL High 8 - 25 mg/dL [facility] Urea nitrogen/Creatinine [Mass ratio] 17.8 mg/mg 10.0 - 20.0 [facility] has implemented the eGFR calculation approach that does not have a coefficient for race that conforms to the NKF-ASN Task Force Recommendations. [facility] CBCon 01-16-2024 AUTO NRBC 0.0 % Normal [facility] Comment on above: Performed By: #### 4 [id number] ####[facility] [address] [place], [place] [address] Abbi Choudhary M.D. [id number] AUTO NRBC ABS COUNT 0.00 K/mcL Normal 0.00-0.00 [facility] Comment on above: Performed By: #### 4 [id number] ####[facility] [address] [place], [place] [address] Abbi Choudhary M.D. [id number] Erythrocyte distribution width (RBC) [Ratio] 13.1 % Normal 11.6-14.8 [facility] Comment on above: Performed By: #### 4 [id number] ####[facility] [address] [place], [place] [address] Abbi Choudhary M.D. [id number] Hematocrit (Bld) [Volume fraction] 30.1 % Low 36.0-46.0 [facility] Comment on above: Performed By: #### 4 [id number] ####[facility] [address] [place], [place] [address] Abbi Choudhary M.D. [id number] Hemoglobin (Bld) [Mass/Vol] 9.4 g/dL Low 12.0-16.0 [facility] Comment on above: Performed By: #### 4 [id number] ####[facility] [address] [place], [place] [address] Abbi Choudhary M.D. [id number] MCH (RBC) [Entitic mass] 30.1 pg Normal 26.0-34.0 [facility] Comment on above: Performed By: #### 4 [id number] ####[facility] [address] [place], [place] [address] Abbi Choudhary M.D. [id number] MCV (RBC) [Entitic vol] 96.5 fL Normal 80.0-100.0 [facility] Comment on above: Performed By: #### 4 [id number] ####[facility] [address] [place] [address] Abbi Choudhary M.D. [id number] MEAN CORPUSCULAR HEMOGLOBIN CONC 31.2 g/dL Normal 31.0-37.0 [facility] Comment on above: Performed By: #### 4 [id number] ####[facility] [address] [place], [place] [address] Abbi Choudhary M.D. [id number] Platelet mean volume (Bld) [Entitic vol] 9.1 fL Low 9.4-12.4 [facility] Comment on above: Performed By: #### 4 [id number] ####[facility] [address] [place], [place] [address] Abbi Choudhary M.D. [id number] Platelets (Bld) [#/Vol] 285 10*3/uL Normal 150-400 [facility] Comment on above: Performed By: #### 4 [id number] ####[facility] [address] [place], [place] [address] Abbi Choudhary M.D. [id number] RBC (Bld) [#/Vol] 3.12 10*6/uL Low 4.00-5.20 [facility] Comment on above: Performed By: #### 4 [id number] ####[facility] [address] [place], [place] [address] Abbi Choudhary M.D. [id number] WBC (Bld) [#/Vol] 8.82 10*3/uL Normal 4.50-11.00 [facility] Comment on above: Performed By: #### 4 [id number] ####[facility] [address] [place] [address] Abbi Choudhary M.D. [id number] CBC panel Auto (Bld)on 01-15 Erythrocyte distribution width (RBC) [Entitic vol] 13.1 % 11.6 - 14.8 % [facility] Hematocrit (Bld) [Volume fraction] 30.1 % Low 36.0 - 46.0 % [facility] Hemoglobin (Bld) [Mass/Vol] 9.4 g/dL Low 12.0 - 16.0 g/dL [facility] Interpretation and review of laboratory results Abnormal [facility] MCH (RBC) [Entitic mass] 30.1 pg 26.0 - 34.0 pg [facility] MCHC (RBC) [Mass/Vol] 31.2 g/dL 31.0 - 37.0 g/dL [facility] MCV (RBC) [Entitic vol] 96.5 fL 80.0 - 100.0 fL [facility] Nucleated RBC (Bld) [#/Vol] 0.00 10*3/uL [facility] Nucleated RBC/100 WBC (Bld) [Ratio] 0.0 % [facility] Platelet mean volume (Bld) [Entitic vol] 9.1 fL Low 9.4 - 12.4 fL [facility] Platelets (Bld) [#/Vol] 285 10*3/uL [facility] RBC (Bld) [#/Vol] 3.12 10*6/uL Low [facility] WBC (Bld) [#/Vol] 8.82 10*3/uL [facility] 01-16-2024 CONSULT Normal [facility] Glucose (Bld) [Mass/Vol]on 0 01-16-2024 Glucose [Mass/Vol] 211 mg/dL High 65 - 99 mg/dL [facility] Interpretation and review of laboratory results Abnormal [facility] Glucose [Mass/Vol] 106 mg/dL High 65 - 99 mg/dL [facility] Interpretation and review of laboratory results Abnormal [facility] Glucose [Mass/Vol] 222 mg/dL High 65 - 99 mg/dL [facility] Interpretation and review of laboratory results Abnormal [facility] Glucose [Mass/Vol] 69 mg/dL 65 - 99 mg/dL [facility] Interpretation and review of laboratory results Normal [facility] POC GLUCOSE - RALSon 024 Glucose [Mass/Vol] 211 mg/dL High [address] [place] [address] Comment on above: Performed By: #### 4 [id number] ####[facility] [address] [place], [place] [address] Abbi Choudhary M.D. [id number] Glucose [Mass/Vol] 106 mg/dL High [address] [place] [address] Comment on above: Performed By: #### 4 [id number] ####[facility] [address] [place], [place] [address] Abbi Choudhary M.D. [id number] Glucose [Mass/Vol] 222 mg/dL High [address] [place] [address] Comment on above: Performed By: #### 4 6932 ####[facility] [address] [place], [place] [address] Abbi Choudhary M.D. [id number] Glucose [Mass/Vol] 69 mg/dL Normal [address] [place] [address] Comment on above: Performed By: #### 4 6932 ####[facility] [address] [place], [place] [address] Abbi Choudhary M.D. [id number] RENAL FUNCTION PANELon 01-15 Albumin [Mass/Vol] 3.3 g/dL Normal 3.2-5.2 [facility] Comment on above: Order Comment: [facility] has implemented the eGFR calculation approach that does not have a coefficient for race that conforms to the NKF-ASN Task Force Recommendations. Performed By: #### 4 6449 ####[facility] [address] [place], [place] [address] Abbi Choudhary M.D. [id number] Anion gap [Moles/Vol] 12 mmol/L Normal - [facility] Comment on above: Order Comment: [facility] has implemented the eGFR calculation approach that does not have a coefficient for race that conforms to the NKF-ASN Task Force Recommendations. Performed By: #### 4 6449 ####[facility] [address] [place], [place] [address] Abbi Choudhary M.D. [id number] Calcium [Mass/Vol] 8.8 mg/dL Normal 8.4-10.2 [facility] Comment on above: Order Comment: [facility] has implemented the eGFR calculation approach that does not have a coefficient for race that conforms to the NKF-ASN Task Force Recommendations. Performed By: #### 4 6449 ####[facility] [address] [place], [place] [address] Abbi Choudhary M.D. [id number] Chloride [Moles/Vol] 111 mmol/L High 98-108 [facility] Comment on above: Order Comment: [facility] has implemented the eGFR calculation approach that does not have a coefficient for race that conforms to the NKF-ASN Task Force Recommendations. Performed By: #### 4 6449 ####[facility] [address] [place], [place] [address] Abbi Choudhary M.D. [id number] Creatinine [Mass/Vol] 1.63 mg/dL High 0.40-1.10 [facility] Comment on above: Order Comment: [facility] has implemented the eGFR calculation approach that does not have a coefficient for race that conforms to the NKF-ASN Task Force Recommendations. Performed By: #### 4 6449 ####[facility] [address] [place], [place] [address] Abbi Choudhary M.D. [id number] EGFR 39 mL/min/1.73 m2 Low >=60 [facility] Comment on above: Order Comment: [facility] has implemented the eGFR calculation approach that does not have a coefficient for race that conforms to the NKF-ASN Task Force Recommendations. Result Comment: Lorie mated GFR was calculated using the 2020 CKD-EPI creatinine equation. Performed By: #### 4 [id number] ####[facility] [address] [place], [place] [address] Abbi Choudhary M.D. [id number] Glucose [Mass/Vol] 103 mg/dL High 65-99 [facility] Comment on above: Order Comment: [facility] has implemented the eGFR calculation approach that does not have a coefficient for race that conforms to the NKF-ASN Task Force Recommendations. Performed By: #### 4 6449 ####[facility] [address] [place], [place] [address] Abbi Choudhary M.D. [id number] HCO3 (Bld) [Moles/Vol] 25 mmol/L Normal 21-32 [facility] Comment on above: Order Comment: [facility] has implemented the eGFR calculation approach that does not have a coefficient for race that conforms to the NKF-ASN Task Force Recommendations. Performed By: #### 4 6449 ####[facility] [address] [place], [place] [address] Abbi Choudhary M.D. [id number] Phosphate [Mass/Vol] 4.1 mg/dL Normal 2.7-4.5 [facility] Comment on above: Order Comment: [facility] has implemented the eGFR calculation approach that does not have a coefficient for race that conforms to the NKF-ASN Task Force Recommendations. Performed By: #### 4 6449 ####[facility] [address] [place], [place] [address] Abbi Choudhary M.D. [id number] Potassium [Moles/Vol] 4.5 mmol/L Normal 3.5-5.1 [facility] Comment on above: Order Comment: [facility] has implemented the eGFR calculation approach that does not have a coefficient for race that conforms to the NKF-ASN Task Force Recommendations. Performed By: #### 4 6449 ####[facility] [address] [place], [place] [address] Abbi Choudhary M.D. [id number] Sodium [Moles/Vol] 143 mmol/L Normal 135-145 [facility] Comment on above: Order Comment: [facility] has implemented the eGFR calculation approach that does not have a coefficient for race that conforms to the NKF-ASN Task Force Recommendations. Performed By: #### 4 6449 ####[facility] [address] [place], [place] [address] Abbi Choudhary M.D. [id number] Urea nitrogen [Mass/Vol] 27 mg/dL High 8-25 [facility] Comment on above: Order Comment: [facility] has implemented the eGFR calculation approach that does not have a coefficient for race that conforms to the NKF-ASN Task Force Recommendations. Performed By: #### 4 6449 ####[facility] [address] [place], [place] [address] Abbi Choudhary M.D. [id number] Urea nitrogen/Creatinine [Mass ratio] 16.6 mg/mg Normal 10.0-20.0 [facility] Comment on above: Order Comment: [facility] has implemented the eGFR calculation approach that does not have a coefficient for race that conforms to the NKF-ASN Task Force Recommendations. Performed By: #### 4 6449 ####[facility] [address] [place], [place] [address] Abbi Choudhary M.D. [id number] Renal function 2000 [facility] 01-16-2024 Albumin [Mass/Vol] 3.3 g/dL 3.2 - 5.2 g/dL [facility] Anion gap [Moles/Vol] 12 mmol/L 10 - 2 0 mmol/L [facility] Calcium [Mass/Vol] 8.8 mg/dL 8.4 - 10. 2 mg/dL [facility] Chloride [Moles/Vol] 111 mmol/L High 98 - 10 8 mmol/L [facility] Creatinine [Mass/Vol] 1.63 mg/dL High 0.40 - 1.10 mg/dL [facility] GFR/1.73 sq M.predicted CKD-EPI (S/P/Bld) [Vol rate/Area] 39 Low - PINF [facility] Comment on above: Estimated GFR was ca lculated using the 2020 CKD-EPI creatinine equation. Glucose [Mass/Vol] 103 mg/dL High 65 - 99 mg/dL [facility] HCO3 [Moles/Vol] 25 mmol/L 21 - 32 mmol/L [facility] Interpretation and review of laboratory results Abnormal [facility] Phosphate [Mass/Vol] 4.1 mg/dL 2.7 - 4 .5 mg/dL [facility] Potassium [Moles/Vol] 4.5 mmol/L 3.5 - 5.1 mmol/L [facility] Sodium [Moles/Vol] 143 mmol/L 135 - 145 mmol/L [facility] Urea nitrogen [Mass/Vol] 27 mg/dL High 8 - 25 mg/dL [facility] Urea nitrogen/Creatinine [Mass ratio] 16.6 mg/mg 10.0 - 20.0 [facility] has implemented the eGFR calculation approach that does not have a coefficient for race that conforms to the NKF-ASN Task Force Recommendations. [facility] URINALYSISon 01-16-2024 BACTERIA, URINE Rare Abnormal None Seen [facility] Comment on above: Order Comment: Micro scopic examination is performed on all urinalysis samples and only positive findings are reported. The test for blood on the chemical analytic portion of urinalysis may also be positive due to hemoglobinuria and myoglobinuria and if red blood cells are present they are quantified by microscopic examination. Performed By: #### 4 [id number] ####[facility] [address] [place], [place] [address] Abbi Choudhary M.D. [id number] BILIRUBIN, URINE Negative Normal Negative [facility] Comment on above: Order Comment: Micro scopic examination is performed on all urinalysis samples and only positive findings are reported. The test for blood on the chemical analytic portion of urinalysis may also be positive due to hemoglobinuria and myoglobinuria and if red blood cells are present they are quantified by microscopic examination. Performed By: #### 4 6625 ####[facility] [address] [place], [place] [address] Abbi Choudhary M.D. [id number] BLOOD, URINE Negative Normal Negative [facility] Comment on above: Order Comment: Micro scopic examination is performed on all urinalysis samples and only positive findings are reported. The test for blood on the chemical analytic portion of urinalysis may also be positive due to hemoglobinuria and myoglobinuria and if red blood cells are present they are quantified by microscopic examination. Performed By: #### 4 6625 ####[facility] [address] [place], [place] [address] Abbi Choudhary M.D. [id number] Clarity (U) Clear Normal Clear [facility] Comment on above: Order Comment: Micro scopic examination is performed on all urinalysis samples and only positive findings are reported. The test for blood on the chemical analytic portion of urinalysis may also be positive due to hemoglobinuria and myoglobinuria and if red blood cells are present they are quantified by microscopic examination. Performed By: #### 4 [id number] ####[facility] [address] [place] [address] Abbi Choudhary M.D. [id number] Color (U) Yellow Normal Colorless, Yellow [facility] Comment on above: Order Comment: Micro scopic examination is performed on all urinalysis samples and only positive findings are reported. The test for blood on the chemical analytic portion of urinalysis may also be positive due to hemoglobinuria and myoglobinuria and if red blood cells are present they are quantified by microscopic examination. Performed By: #### 4 [id number] ####[facility] [address] [place] [address] Abbi Choudhary M.D. [id number] Glucose Ql (U) 50 mg/dL Abnormal Negative [facility] Comment on above: Order Comment: Micro scopic examination is performed on all urinalysis samples and only positive findings are reported. The test for blood on the chemical analytic portion of urinalysis may also be positive due to hemoglobinuria and myoglobinuria and if red blood cells are present they are quantified by microscopic examination. Performed By: #### 4 [id number] ####[facility] [address] [place] [address] Abbi Choudhary M.D. [id number] Hyaline casts LM Ql (Urine sed) 3-5 Abnormal 0-2 [facility] Comment on above: Order Comment: Micro scopic examination is performed on all urinalysis samples and only positive findings are reported. The test for blood on the chemical analytic portion of urinalysis may also be positive due to hemoglobinuria and myoglobinuria and if red blood cells are present they are quantified by microscopic examination. Performed By: #### 4 [id number] ####[facility] [address] [place], [place] [address] Abbi Choudhary M.D. [id number] Ketones Ql (U) Negative Normal Negative [facility] Comment on above: Order Comment: Micro scopic examination is performed on all urinalysis samples and only positive findings are reported. The test for blood on the chemical analytic portion of urinalysis may also be positive due to hemoglobinuria and myoglobinuria and if red blood cells are present they are quantified by microscopic examination. Performed By: #### 4 [id number] ####[facility] [address] [place] [address] Abbi Choudhary M.D. [id number] Leukocyte esterase Test strip Ql (U) Negative Normal Negative [facility] Comment on above: Order Comment: Micro scopic examination is performed on all urinalysis samples and only positive findings are reported. The test for blood on the chemical analytic portion of urinalysis may also be positive due to hemoglobinuria and myoglobinuria and if red blood cells are present they are quantified by microscopic examination. Performed By: #### 4 [id number] ####[facility] [address] [place] [address] Abbi Choudhary M.D. [id number] MUCUS, URINE Rare Normal None Seen, Rare [facility] Comment on above: Order Comment: Micro scopic examination is performed on all urinalysis samples and only positive findings are reported. The test for blood on the chemical analytic portion of urinalysis may also be positive due to hemoglobinuria and myoglobinuria and if red blood cells are present they are quantified by microscopic examination. Performed By: #### 4 [id number] ####[facility] [address] [place] [address] Abbi Choudhary M.D. [id number] NITRITE, URINE Negative Normal Negative [facility] Comment on above: Order Comment: Micro scopic examination is performed on all urinalysis samples and only positive findings are reported. The test for blood on the chemical analytic portion of urinalysis may also be positive due to hemoglobinuria and myoglobinuria and if red blood cells are present they are quantified by microscopic examination. Performed By: #### 4 6625 ####[facility] [address] [place], [place] [address] Abbi Choudhary M.D. [id number] pH (U) 5.0 [pH] Normal 5.0-7.0 [facility] Comment on above: Order Comment: Micro scopic examination is performed on all urinalysis samples and only positive findings are reported. The test for blood on the chemical analytic portion of urinalysis may also be positive due to hemoglobinuria and myoglobinuria and if red blood cells are present they are quantified by microscopic examination. Performed By: #### 4 [id number] ####[facility] [address] [place], [place] [address] Abbi Choudhary M.D. [id number] Protein (U) [Mass/Vol] 100 mg/dL Abnormal Negative [facility] Comment on above: Order Comment: Micro scopic examination is performed on all urinalysis samples and only positive findings are reported. The test for blood on the chemical analytic portion of urinalysis may also be positive due to hemoglobinuria and myoglobinuria and if red blood cells are present they are quantified by microscopic examination. Performed By: #### 4 [id number] ####[facility] [address] [place] [address] Abbi Choudhary M.D. [id number] RBC LM.HPF (Urine sed) [#/Area] 2 /[HPF] Normal 0-3 [facility] Comment on above: Order Comment: Micro scopic examination is performed on all urinalysis samples and only positive findings are reported. The test for blood on the chemical analytic portion of urinalysis may also be positive due to hemoglobinuria and myoglobinuria and if red blood cells are present they are quantified by microscopic examination. Performed By: #### 4 [id number] ####[facility] [address] [place], [place] [address] Abbi Choudhary M.D. [id number] Specific gravity (U) [Rel density] 1.013 Normal 1.005-1.025 [facility] Comment on above: Order Comment: Micro scopic examination is performed on all urinalysis samples and only positive findings are reported. The test for blood on the chemical analytic portion of urinalysis may also be positive due to hemoglobinuria and myoglobinuria and if red blood cells are present they are quantified by microscopic examination. Performed By: #### 4 [id number] ####[facility] [address] [place], [place] [address] Abbi Choudhary M.D. [id number] SQUAMOUS EPITHELIAL 2 /hpf Normal 0-4 [facility] Comment on above: Order Comment: Micro scopic examination is performed on all urinalysis samples and only positive findings are reported. The test for blood on the chemical analytic portion of urinalysis may also be positive due to hemoglobinuria and myoglobinuria and if red blood cells are present they are quantified by microscopic examination. Performed By: #### 4 6625 ####[facility] [address] [place], [place] [address] Abbi Choudhary M.D. [id number] UROBILINOGEN, URINE <2.0 Normal <2.0 [facility] Comment on above: Order Comment: Micro scopic examination is performed on all urinalysis samples and only positive findings are reported. The test for blood on the chemical analytic portion of urinalysis may also be positive due to hemoglobinuria and myoglobinuria and if red blood cells are present they are quantified by microscopic examination. Performed By: #### 4 6625 ####[facility] [address] [place], [place] [address] Abbi Choudhary M.D. [id number] WBC LM.HPF (Urine sed) [#/Area] 1 /[HPF] Normal 0-5 [facility] Comment on above: Order Comment: Micro scopic examination is performed on all urinalysis samples and only positive findings are reported. The test for blood on the chemical analytic portion of urinalysis may also be positive due to hemoglobinuria and myoglobinuria and if red blood cells are present they are quantified by microscopic examination. Performed By: #### 4 [id number] ####[facility] [address] [place], [place] [address] Abbi Choudhary M.D. [id number] US Kidney - bilateral and Ur inary bladderon 01-16-2024 Radiology Study observation (narrative) [facility] US RENAL AND BLADDERon 01-15 US RENAL AND BLADDER Normal [facility] Comment on above: Order Comment: Injur y/Trauma or Illness?:Illness/OtherHow long have you had these symptoms (acute/chronic)?:AcuteReason for exam?:akiHistory of cancer?:uSurgeries, chemotherapy, or radiation?:pacemakerType of Exam?:InitialAdditional signs and symptoms?:none UrinalysisOrdered By: Mayela Schmitt on 01-16-2024 Bacteria Auto Ql (U) Rare Abnormal None Se en /hpf [facility] Bilirubin Ql (U) Negative Negative [facility] Clarity Refractometry automated (U) Clear Clear [facility] Color (U) Yellow Colorless, Yellow [facility] Epithelial cells.squamous Auto (Urine sed) [#/Area] 2 [facility] Glucose Auto test strip (U) [Mass/Vol] 50 mg/dL Abnormal Negative [facility] Hemoglobin Auto test strip Ql (U) Negative Negative [facility] Hyaline casts Auto (Urine sed) [#/Area] 3-5 Abnormal [facility] Interpretation and review of laboratory results Abnormal [facility] Ketones (U) [Mass/Vol] Negative Negative mg/dL [facility] Leukocyte esterase Auto test strip Ql (U) Negative Negative [facility] Mucus Auto (Urine sed) [#/Area] Rare None Seen, Rare /lpf [facility] Nitrite Auto test strip Ql (U) Negative Negative [facility] pH (U) 5.0 [pH] 5.0 - 7.0 [facility] Protein (U) [Mass/Vol] 100 mg/dL Abnormal Negative [facility] RBC Auto (Urine sed) [#/Area] 2 [facility] Specific gravity (U) [Rel density] 1.013 1.005 - 1.025 [facility] Urobilinogen (U) [Mass/Vol] mg/dL NINF - 2.0 mg/dL [facility] WBC Auto (Urine sed) [#/Area] 1 [facility] Microscopic examinat ion is performed on all urinalysis samples and only positive findings are reported. The test for blood on the chemical analytic portion of urinalysis may also be positive due to hemoglobinuria and myoglobinuria and if red blood cells are present they are quantified by microscopic examination. [facility] CBCon 01-15-2024 AUTO NRBC 0.0 % Normal [facility] Comment on above: Performed By: #### 4 [id number] ####[facility] [address] [place] [address] Abbi Choudhary M.D. [id number] AUTO NRBC ABS COUNT 0.00 K/mcL Normal 0.00-0.00 [facility] Comment on above: Performed By: #### 4 [id number] #### [facility] [address] [place] [address] Abbi Choudhary M.D. [id number] Erythrocyte distribution width (RBC) [Ratio] 13.1 % Normal 11.6-14.8 [facility] Comment on above: Performed By: #### 4 [id number] ####[facility] [address] [place], [place] [address] Abbi Choudhary M.D. [id number] Hematocrit (Bld) [Volume fraction] 31.2 % Low 36.0-46.0 [facility] Comment on above: Performed By: #### 4 [id number] ####[facility] [address] [place], [place] [address] Abbi Choudhary M.D. [id number] Hemoglobin (Bld) [Mass/Vol] 9.9 g/dL Low 12.0-16.0 [facility] Comment on above: Performed By: #### 4 [id number] ####[facility] [address] [place] [address] Abbi Choudhary M.D. [id number] MCH (RBC) [Entitic mass] 30.6 pg Normal 26.0-34.0 [facility] Comment on above: Performed By: #### 4 [id number] ####[facility] [address] [place], [place] [address] Abbi Choudhary M.D. [id number] MCV (RBC) [Entitic vol] 96.3 fL Normal 80.0-100.0 [facility] Comment on above: Performed By: #### 4 [id number] ####[facility] [address] [place], [place] [address] Abbi Choudhary M.D. [id number] MEAN CORPUSCULAR HEMOGLOBIN CONC 31.7 g/dL Normal 31.0-37.0 [facility] Comment on above: Performed By: #### 4 [id number] ####[facility] [address] [place], [place] [address] Abbi Choudhary M.D. [id number] Platelet mean volume (Bld) [Entitic vol] 9.3 fL Low 9.4-12.4 [facility] Comment on above: Performed By: #### 4 [id number] ####[facility] [address] [place], [place] [address] Abbi Choudhary M.D. [id number] Platelets (Bld) [#/Vol] 266 10*3/uL Normal 150-400 [facility] Comment on above: Performed By: #### 4 [id number] ####[facility] [address] [place], [place] [address] Abbi Choudhary M.D. [id number] RBC (Bld) [#/Vol] 3.24 10*6/uL Low 4.00-5.20 [facility] Comment on above: Performed By: #### 4 [id number] ####[facility] [address] [place], [place] [address] Abbi Choudhary M.D. [id number] WBC (Bld) [#/Vol] 7.12 10*3/uL Normal 4.50-11.00 [facility] Comment on above: Performed By: #### 4 [id number] ####[facility] [address] [place], [place] [address] Abbi Choudhary M.D. [id number] CBC panel Auto (Bld)on 01-14 Erythrocyte distribution width (RBC) [Entitic vol] 13.1 % 11.6 - 14.8 % [facility] Hematocrit (Bld) [Volume fraction] 31.2 % Low 36.0 - 46.0 % [facility] Hemoglobin (Bld) [Mass/Vol] 9.9 g/dL Low 12.0 - 16.0 g/dL [facility] Interpretation and review of laboratory results Abnormal [facility] MCH (RBC) [Entitic mass] 30.6 pg 26.0 - 34.0 pg [facility] MCHC (RBC) [Mass/Vol] 31.7 g/dL 31.0 - 37.0 g/dL [facility] MCV (RBC) [Entitic vol] 96.3 fL 80.0 - 100.0 fL [facility] Nucleated RBC (Bld) [#/Vol] 0.00 10*3/uL [facility] Nucleated RBC/100 WBC (Bld) [Ratio] 0.0 % [facility] Platelet mean volume (Bld) [Entitic vol] 9.3 fL Low 9.4 - 12.4 fL [facility] Platelets (Bld) [#/Vol] 266 10*3/uL [facility] RBC (Bld) [#/Vol] 3.24 10*6/uL Low [facility] WBC (Bld) [#/Vol] 7.12 10*3/uL [facility] Glucose (Bld) [Mass/Vol]on 0 01-15-2024 Glucose [Mass/Vol] 233 mg/dL High 65 - 99 mg/dL [facility] Interpretation and review of laboratory results Abnormal [facility] Glucose [Mass/Vol] 103 mg/dL High 65 - 99 mg/dL [facility] Interpretation and review of laboratory results Abnormal [facility] Glucose [Mass/Vol] 89 mg/dL 65 - 99 mg/dL [facility] Interpretation and review of laboratory results Normal [facility] Glucose [Mass/Vol] 104 mg/dL High 65 - 99 mg/dL [facility] Interpretation and review of laboratory results Abnormal [facility] POC GLUCOSE - [facility] 024 Glucose [Mass/Vol] 233 mg/dL High 65-99 [facility] Comment on above: Performed By: #### 4 6932 ####[facility] [address] [place], [place] [address] Abbi Choudhary M.D. [id number] Glucose [Mass/Vol] 103 mg/dL High [address] [place] [address] Comment on above: Performed By: #### 4 6932 ####[facility] [address] [place], [place] [address] Abbi Choudhary M.D. [id number] Glucose [Mass/Vol] 89 mg/dL Normal [address] [place] [address] Comment on above: Performed By: #### 4 6932 ####[facility] [address] [place], [place] [address] Abbi Choudhary M.D. [id number] Glucose [Mass/Vol] 104 mg/dL High [address] [place] [address] Comment on above: Performed By: #### 4 6932 ####[facility] [address] [place], [place] [address] Abbi Choudhary M.D. [id number] RENAL FUNCTION PANELon 01-14 Albumin [Mass/Vol] 3.4 g/dL Normal 3.2-5.2 [facility] Comment on above: Order Comment: [facility] [employer] has implemented the eGFR calculation approach that does not have a coefficient for race that conforms to the NKF-ASN Task Force Recommendations. Performed By: #### 4 6449 ####[facility] [address] [place], [place] [address] Abbi Choudhary M.D. [id number] Anion gap [Moles/Vol] 13 mmol/L Normal 10-20 [facility] Comment on above: Order Comment: [facility] [employer] has implemented the eGFR calculation approach that does not have a coefficient for race that conforms to the NKF-ASN Task Force Recommendations. Performed By: #### 4 6449 ####[facility] [address] [place], [place] [address] Abbi Choudhary M.D. [id number] Calcium [Mass/Vol] 8.7 mg/dL Normal 8.4-10.2 [facility] Comment on above: Order Comment: [facility] has implemented the eGFR calculation approach that does not have a coefficient for race that conforms to the NKF-ASN Task Force Recommendations. Performed By: #### 4 6449 ####[facility] [address] [place], [place] [address] Abbi Choudhary M.D. [id number] Chloride [Moles/Vol] 109 mmol/L High 98-108 [facility] Comment on above: Order Comment: [facility] has implemented the eGFR calculation approach that does not have a coefficient for race that conforms to the NKF-ASN Task Force Recommendations. Performed By: #### 4 6449 ####[facility] [address] [place], [place] [address] Abbi Choudhary M.D. [id number] Creatinine [Mass/Vol] 1.59 mg/dL High 0.40-1.10 [facility] Comment on above: Order Comment: [facility] [employer] has implemented the eGFR calculation approach that does not have a coefficient for race that conforms to the NKF-ASN Task Force Recommendations. Performed By: #### 4 6449 ####[facility] [address] [place], [place] [address] Abbi Choudhary M.D. [id number] EGFR 40 mL/min/1.73 m2 Low >=60 [facility] Comment on above: Order Comment: [facility] has implemented the eGFR calculation approach that does not have a coefficient for race that conforms to the NKF-ASN Task Force Recommendations. Result Comment: Lorie mated GFR was calculated using the 2020 CKD-EPI creatinine equation. Performed By: #### 4 6449 ####[facility] [address] [place], [place] [address] Abbi Choudhary M.D. [id number] Glucose [Mass/Vol] 102 mg/dL High 65-99 [facility] Comment on above: Order Comment: [facility] has implemented the eGFR calculation approach that does not have a coefficient for race that conforms to the NKF-ASN Task Force Recommendations. Performed By: #### 4 6449 ####[facility] [address] [place], [place] [address] Abbi Choudhary M.D. [id number] HCO3 (Bld) [Moles/Vol] 25 mmol/L Normal 21-32 [facility] Comment on above: Order Comment: [facility] has implemented the eGFR calculation approach that does not have a coefficient for race that conforms to the NKF-ASN Task Force Recommendations. Performed By: #### 4 6449 ####[facility] [address] [place], [place] [address] Abbi Choudhary M.D. [id number] Phosphate [Mass/Vol] 4.8 mg/dL High 2.7-4.5 [facility] Comment on above: Order Comment: [facility] has implemented the eGFR calculation approach that does not have a coefficient for race that conforms to the NKF-ASN Task Force Recommendations. Performed By: #### 4 6449 ####[facility] [address] [place], [place] [address] Abbi Choudhary M.D. [id number] Potassium [Moles/Vol] 4.2 mmol/L Normal 3.5-5.1 [facility] Comment on above: Order Comment: [facility] has implemented the eGFR calculation approach that does not have a coefficient for race that conforms to the NKF-ASN Task Force Recommendations. Performed By: #### 4 6449 ####[facility] [address] [place], [place] [address] Abbi Choudhary M.D. [id number] Sodium [Moles/Vol] 143 mmol/L Normal 135-145 [facility] Comment on above: Order Comment: [facility] has implemented the eGFR calculation approach that does not have a coefficient for race that conforms to the NKF-ASN Task Force Recommendations. Performed By: #### 4 6449 ####[facility] [address] [place], [place] [address] Abbi Choudhary M.D. [id number] Urea nitrogen [Mass/Vol] 27 mg/dL High 8-25 [facility] Comment on above: Order Comment: [facility] has implemented the eGFR calculation approach that does not have a coefficient for race that conforms to the NKF-ASN Task Force Recommendations. Performed By: #### 4 6449 ####[facility] [address] [place], [place] [address] Abbi Choudhary M.D. [id number] Urea nitrogen/Creatinine [Mass ratio] 17.0 mg/mg Normal 10.0-20.0 [facility] Comment on above: Order Comment: [facility] has implemented the eGFR calculation approach that does not have a coefficient for race that conforms to the NKF-ASN Task Force Recommendations. Performed By: #### 4 6449 ####[facility] [address] [place], [place] [address] Abbi Choudhary M.D. [id number] Renal function 2000 [facility] 01-15-2024 Albumin [Mass/Vol] 3.4 g/dL 3.2 - 5.2 g/dL [facility] Anion gap [Moles/Vol] 13 mmol/L 10 - 2 0 mmol/L [facility] Calcium [Mass/Vol] 8.7 mg/dL 8.4 - 10. 2 mg/dL [facility] Chloride [Moles/Vol] 109 mmol/L High 98 - 10 8 mmol/L [facility] Creatinine [Mass/Vol] 1.59 mg/dL High 0.40 - 1.10 mg/dL [facility] GFR/1.73 sq M.predicted CKD-EPI (S/P/Bld) [Vol rate/Area] 40 Low - PINF [facility] Comment on above: Estimated GFR was ca lculated using the 2020 CKD-EPI creatinine equation. Glucose [Mass/Vol] 102 mg/dL High 65 - 99 mg/dL [facility] HCO3 [Moles/Vol] 25 mmol/L 21 - 32 mmol/L [facility] Interpretation and review of laboratory results Abnormal [facility] Phosphate [Mass/Vol] 4.8 mg/dL High 2.7 - 4 .5 mg/dL [facility] Potassium [Moles/Vol] 4.2 mmol/L 3.5 - 5.1 mmol/L [facility] Sodium [Moles/Vol] 143 mmol/L 135 - 145 mmol/L [facility] Urea nitrogen [Mass/Vol] 27 mg/dL High 8 - 25 mg/dL [facility] Urea nitrogen/Creatinine [Mass ratio] 17.0 mg/mg 10.0 - 20.0 [facility] has implemented the eGFR calculation approach that does not have a coefficient for race that conforms to the NKF-ASN Task Force Recommendations. [facility] CBCon 01-14-2024 AUTO NRBC 0.0 % Normal [facility] Comment on above: Performed By: #### 4 [id number] ####[facility] [address] [place] [address] Abbi Choudhary M.D. [id number] AUTO NRBC ABS COUNT 0.00 K/mcL Normal 0.00-0.00 [facility] Comment on above: Performed By: #### 4 [id number] ####[facility] [address] [place] [address] Abbi Choudhary M.D. [id number] Erythrocyte distribution width (RBC) [Ratio] 13.2 % Normal 11.6-14.8 [facility] Comment on above: Performed By: #### 4 [id number] ####[facility] [address] [place] [address] Abbi Choudhary M.D. [id number] Hematocrit (Bld) [Volume fraction] 29.6 % Low 36.0-46.0 [facility] Comment on above: Performed By: #### 4 [id number] ####[facility] [address] [place] [address] Abbi Choudhary M.D. [id number] Hemoglobin (Bld) [Mass/Vol] 9.7 g/dL Low 12.0-16.0 [facility] Comment on above: Performed By: #### 4 [id number] ####[facility] [address] [place], [place] [address] Abbi Choudhary M.D. [id number] MCH (RBC) [Entitic mass] 30.8 pg Normal 26.0-34.0 [facility] Comment on above: Performed By: #### 4 [id number] ####[facility] [address] [place], [place] [address] Abbi Choudhary M.D. [id number] MCV (RBC) [Entitic vol] 94.0 fL Normal 80.0-100.0 [facility] Comment on above: Performed By: #### 4 [id number] ####[facility] [address] [place], [place] [address] Abbi Choudhary M.D. [id number] MEAN CORPUSCULAR HEMOGLOBIN CONC 32.8 g/dL Normal 31.0-37.0 [facility] Comment on above: Performed By: #### 4 [id number] ####[facility] [address] [place], [place] [address] Abbi Choudhary M.D. [id number] Platelet mean volume (Bld) [Entitic vol] 9.0 fL Low 9.4-12.4 [facility] Comment on above: Performed By: #### 4 [id number] ####[facility] [address] [place], [place] [address] Abbi Choudhary M.D. [id number] Platelets (Bld) [#/Vol] 264 10*3/uL Normal 150-400 [facility] Comment on above: Performed By: #### 4 [id number] ####[facility] [address] [place], [place] [address] Abbi Choudhary M.D. [id number] RBC (Bld) [#/Vol] 3.15 10*6/uL Low 4.00-5.20 [facility] Comment on above: Performed By: #### 4 [id number] ####[facility] [address] [place], [place] [address] Abbi Choudhary M.D. [id number] WBC (Bld) [#/Vol] 7.49 10*3/uL Normal 4.50-11.00 [facility] Comment on above: Performed By: #### 4 [id number] ####[facility] [address] [place] [address] Abbi Choudhary M.D. [id number] CBC panel Auto (Bld)on 01-13 Erythrocyte distribution width (RBC) [Entitic vol] 13.2 % 11.6 - 14.8 % [facility] Hematocrit (Bld) [Volume fraction] 29.6 % Low 36.0 - 46.0 % [facility] Hemoglobin (Bld) [Mass/Vol] 9.7 g/dL Low 12.0 - 16.0 g/dL [facility] Interpretation and review of laboratory results Abnormal [facility] MCH (RBC) [Entitic mass] 30.8 pg 26.0 - 34.0 pg [facility] MCHC (RBC) [Mass/Vol] 32.8 g/dL 31.0 - 37.0 g/dL [facility] MCV (RBC) [Entitic vol] 94.0 fL 80.0 - 100.0 fL [facility] Nucleated RBC (Bld) [#/Vol] 0.00 10*3/uL [facility] Nucleated RBC/100 WBC (Bld) [Ratio] 0.0 % [facility] Platelet mean volume (Bld) [Entitic vol] 9.0 fL Low 9.4 - 12.4 fL [facility] Platelets (Bld) [#/Vol] 264 10*3/uL [facility] RBC (Bld) [#/Vol] 3.15 10*6/uL Low [facility] WBC (Bld) [#/Vol] 7.49 10*3/uL [facility] CK [Catalytic activity/Vol]o n 01-14-2024 Interpretation and review of laboratory results Normal [facility] CPKon 01-14-2024 CPK 57 U/L Normal 40-170 [facility] Comment on above: Performed By: #### 4 [id number] ####[facility] [address] [address] Abbi Choudhary M.D. [id number] CPK NO MBon 01-14-2024 CK [Catalytic activity/Vol] 57 U/L 40 - 170 U/L [facility] Glucose (Bld) [Mass/Vol]on 0 01-14-2024 Glucose [Mass/Vol] 194 mg/dL High 65 - 99 mg/dL [facility] Interpretation and review of laboratory results Abnormal [facility] Glucose [Mass/Vol] 77 mg/dL 65 - 99 mg/dL [facility] Interpretation and review of laboratory results Normal [facility] Glucose [Mass/Vol] 239 mg/dL High 65 - 99 mg/dL [facility] Interpretation and review of laboratory results Abnormal [facility] Glucose [Mass/Vol] 99 mg/dL 65 - 99 mg/dL [facility] Interpretation and review of laboratory results Normal [facility] POC GLUCOSE - [facility] 024 Glucose [Mass/Vol] 194 mg/dL High 65-99 [facility] Comment on above: Performed By: #### 4 [id number] ####[facility] [address], [place] [address] Abbi Choudhary M.D. [id number] Glucose [Mass/Vol] 77 mg/dL Normal 65-99 [facility] Comment on above: Performed By: #### 4 [id number] ####[facility] [address], [place] [address] Abbi Choudhary M.D. [id number] Glucose [Mass/Vol] 239 mg/dL High [address] [place] [address] Comment on above: Performed By: #### 4 [id number] ####[facility] [address] [place], [place] [address] Abbi Choudhary M.D. [id number] Glucose [Mass/Vol] 99 mg/dL Normal [address] [place] [address] Comment on above: Performed By: #### 4 [id number] ####[facility] [address] [place], [place] [address] Abbi Choudhary M.D. [id number] RENAL FUNCTION PANELon 01-13 Albumin [Mass/Vol] 3.4 g/dL Normal 3.2-5.2 [facility] Comment on above: Order Comment: [facility] has implemented the eGFR calculation approach that does not have a coefficient for race that conforms to the NKF-ASN Task Force Recommendations. Performed By: #### 4 6449 ####[facility] [address] [place], [place] [address] Abbi Choudhary M.D. [id number] Anion gap [Moles/Vol] 13 mmol/L Normal 10-20 [facility] Comment on above: Order Comment: [facility] [employer] has implemented the eGFR calculation approach that does not have a coefficient for race that conforms to the NKF-ASN Task Force Recommendations. Performed By: #### 4 6449 ####[facility] [address] [place], [place] [address] Abbi Choudhary M.D. [id number] Calcium [Mass/Vol] 8.5 mg/dL Normal 8.4-10.2 [facility] Comment on above: Order Comment: [facility] [employer] has implemented the eGFR calculation approach that does not have a coefficient for race that conforms to the NKF-ASN Task Force Recommendations. Performed By: #### 4 6449 ####[facility] [address] [place], [place] [address] Abbi Choudhary M.D. [id number] Chloride [Moles/Vol] 107 mmol/L Normal 98-108 [facility] Comment on above: Order Comment: [facility] [employer] has implemented the eGFR calculation approach that does not have a coefficient for race that conforms to the NKF-ASN Task Force Recommendations. Performed By: #### 4 6449 ####[facility] [address] [place], [place] [address] Abbi Choudhary M.D. [id number] Creatinine [Mass/Vol] 1.59 mg/dL High 0.40-1.10 [facility] Comment on above: Order Comment: [facility] [employer] has implemented the eGFR calculation approach that does not have a coefficient for race that conforms to the NKF-ASN Task Force Recommendations. Performed By: #### 4 6449 ####[facility] [address] [place], [place] [address] Abbi Choudhary M.D. [id number] EGFR 40 mL/min/1.73 m2 Low >=60 [facility] Comment on above: Order Comment: [facility] has implemented the eGFR calculation approach that does not have a coefficient for race that conforms to the NKF-ASN Task Force Recommendations. Result Comment: Lorie mated GFR was calculated using the 2020 CKD-EPI creatinine equation. Performed By: #### 4 6449 ####[facility] [address] [place], [place] [address] Abbi Choudhary M.D. [id number] Glucose [Mass/Vol] 149 mg/dL High 65-99 [facility] Comment on above: Order Comment: [facility] has implemented the eGFR calculation approach that does not have a coefficient for race that conforms to the NKF-ASN Task Force Recommendations. Performed By: #### 4 6449 ####[facility] [address] [place], [place] [address] Abbi Choudhary M.D. [id number] HCO3 (Bld) [Moles/Vol] 25 mmol/L Normal 21-32 [facility] Comment on above: Order Comment: [facility] [employer] has implemented the eGFR calculation approach that does not have a coefficient for race that conforms to the NKF-ASN Task Force Recommendations. Performed By: #### 4 6449 ####[facility] [address] [place], [place] [address] Abbi Choudhary M.D. [id number] Phosphate [Mass/Vol] 4.7 mg/dL High 2.7-4.5 [facility] Comment on above: Order Comment: [facility] [employer] has implemented the eGFR calculation approach that does not have a coefficient for race that conforms to the NKF-ASN Task Force Recommendations. Performed By: #### 4 6449 ####[facility] [address] [place], [place] [address] Abbi Choudhary M.D. [id number] Potassium [Moles/Vol] 4.1 mmol/L Normal 3.5-5.1 [facility] Comment on above: Order Comment: [facility] has implemented the eGFR calculation approach that does not have a coefficient for race that conforms to the NKF-ASN Task Force Recommendations. Performed By: #### 4 6449 ####[facility] [address] [place], [place] [address] Abbi Choudhary M.D. [id number] Sodium [Moles/Vol] 141 mmol/L Normal 135-145 [facility] Comment on above: Order Comment: [facility] has implemented the eGFR calculation approach that does not have a coefficient for race that conforms to the NKF-ASN Task Force Recommendations. Performed By: #### 4 6449 ####[facility] [address], [place] [address] Abbi Choudhary M.D. [id number] Urea nitrogen [Mass/Vol] 28 mg/dL High 8-25 [facility] Comment on above: Order Comment: [facility] has implemented the eGFR calculation approach that does not have a coefficient for race that conforms to the NKF-ASN Task Force Recommendations. Performed By: #### 4 6449 ####[facility] [address] [place] [address] Abbi Choudhary M.D. [id number] Urea nitrogen/Creatinine [Mass ratio] 17.6 mg/mg Normal 10.0-20.0 [facility] Comment on above: Order Comment: [facility] has implemented the eGFR calculation approach that does not have a coefficient for race that conforms to the NKF-ASN Task Force Recommendations. Performed By: #### 4 6449 ####[facility] [address], [place] [address] Abbi Choudhary M.D. [id number] Renal function 2000 [facility] 01-14-2024 Albumin [Mass/Vol] 3.4 g/dL 3.2 - 5.2 g/dL [facility] Anion gap [Moles/Vol] 13 mmol/L 10 - 2 0 mmol/L [facility] Calcium [Mass/Vol] 8.5 mg/dL 8.4 - 10. 2 mg/dL [facility] Chloride [Moles/Vol] 107 mmol/L 98 - 10 8 mmol/L [facility] Creatinine [Mass/Vol] 1.59 mg/dL High 0.40 - 1.10 mg/dL [facility] GFR/1.73 sq M.predicted CKD-EPI (S/P/Bld) [Vol rate/Area] 40 Low - PINF [facility] Comment on above: Estimated GFR was ca lculated using the 2020 CKD-EPI creatinine equation. Glucose [Mass/Vol] 149 mg/dL High 65 - 99 mg/dL [facility] HCO3 [Moles/Vol] 25 mmol/L 21 - 32 mmol/L [facility] Interpretation and review of laboratory results Abnormal [facility] Phosphate [Mass/Vol] 4.7 mg/dL High 2.7 - 4 .5 mg/dL [facility] Potassium [Moles/Vol] 4.1 mmol/L 3.5 - 5.1 mmol/L [facility] Sodium [Moles/Vol] 141 mmol/L 135 - 145 mmol/L [facility] Urea nitrogen [Mass/Vol] 28 mg/dL High 8 - 25 mg/dL [facility] Urea nitrogen/Creatinine [Mass ratio] 17.6 mg/mg 10.0 - 20.0 [facility] has implemented the eGFR calculation approach that does not have a coefficient for race that conforms to the NKF-ASN Task Force Recommendations. [facility] URINALYSISon 01-14-2024 BACTERIA, URINE None Seen Normal None Seen [facility] Comment on above: Order Comment: Micro scopic examination is performed on all urinalysis samples and only positive findings are reported. The test for blood on the chemical analytic portion of urinalysis may also be positive due to hemoglobinuria and myoglobinuria and if red blood cells are present they are quantified by microscopic examination. Performed By: #### 4 6625 #### [facility] [address] [address] Abbi Choudhary M.D. [id number] BILIRUBIN, URINE Negative Normal Negative [facility] Comment on above: Order Comment: Micro scopic examination is performed on all urinalysis samples and only positive findings are reported. The test for blood on the chemical analytic portion of urinalysis may also be positive due to hemoglobinuria and myoglobinuria and if red blood cells are present they are quantified by microscopic examination. Performed By: #### 4 6625 ####[facility] [address] [place], [place] [address] Abbi Choudhary M.D. [id number] BLOOD, URINE Negative Normal Negative [facility] Comment on above: Order Comment: Micro scopic examination is performed on all urinalysis samples and only positive findings are reported. The test for blood on the chemical analytic portion of urinalysis may also be positive due to hemoglobinuria and myoglobinuria and if red blood cells are present they are quantified by microscopic examination. Performed By: #### 4 6625 ####[facility] [address] [place], [place] [address] Abbi Choudhary M.D. [id number] Clarity (U) Clear Normal Clear [facility] Comment on above: Order Comment: Micro scopic examination is performed on all urinalysis samples and only positive findings are reported. The test for blood on the chemical analytic portion of urinalysis may also be positive due to hemoglobinuria and myoglobinuria and if red blood cells are present they are quantified by microscopic examination. Performed By: #### 4 6625 ####[facility] [address] [place], [place] [address] Abbi Choudhary M.D. [id number] Color (U) Yellow Normal Colorless, Yellow [facility] Comment on above: Order Comment: Micro scopic examination is performed on all urinalysis samples and only positive findings are reported. The test for blood on the chemical analytic portion of urinalysis may also be positive due to hemoglobinuria and myoglobinuria and if red blood cells are present they are quantified by microscopic examination. Performed By: #### 4 6625 ####[facility] [address] [place], [place] [address] bAbi Choudhary M.D. [id number] Glucose Ql (U) 150 mg/dL Abnormal Negative [facility] Comment on above: Order Comment: Micro scopic examination is performed on all urinalysis samples and only positive findings are reported. The test for blood on the chemical analytic portion of urinalysis may also be positive due to hemoglobinuria and myoglobinuria and if red blood cells are present they are quantified by microscopic examination. Performed By: #### 4 6625 ####[facility] [address] [place], [place] [address] Abbi Choudhary M.D. [id number] Ketones Ql (U) Negative Normal Negative [facility] Comment on above: Order Comment: Micro scopic examination is performed on all urinalysis samples and only positive findings are reported. The test for blood on the chemical analytic portion of urinalysis may also be positive due to hemoglobinuria and myoglobinuria and if red blood cells are present they are quantified by microscopic examination. Performed By: #### 4 6625 ####[facility] [address] [place], [place] [address] Abbi Choudhary M.D. [id number] Leukocyte esterase Test strip Ql (U) Negative Normal Negative [facility] Comment on above: Order Comment: Micro scopic examination is performed on all urinalysis samples and only positive findings are reported. The test for blood on the chemical analytic portion of urinalysis may also be positive due to hemoglobinuria and myoglobinuria and if red blood cells are present they are quantified by microscopic examination. Performed By: #### 4 6625 ####[facility] [address] [place], [place] [address] Abbi Choudhary M.D. [id number] MUCUS, URINE Rare Normal None Seen, Rare [facility] Comment on above: Order Comment: Micro scopic examination is performed on all urinalysis samples and only positive findings are reported. The test for blood on the chemical analytic portion of urinalysis may also be positive due to hemoglobinuria and myoglobinuria and if red blood cells are present they are quantified by microscopic examination. Performed By: #### 4 6625 ####[facility] [address] [place], [place] [address] Abbi Choudhary M.D. [id number] NITRITE, URINE Negative Normal Negative [facility] Comment on above: Order Comment: Micro scopic examination is performed on all urinalysis samples and only positive findings are reported. The test for blood on the chemical analytic portion of urinalysis may also be positive due to hemoglobinuria and myoglobinuria and if red blood cells are present they are quantified by microscopic examination. Performed By: #### 4 6625 ####[facility] [address] [place], [place] [address] Abbi Choudhary M.D. [id number] pH (U) 5.0 [pH] Normal 5.0-7.0 [facility] Comment on above: Order Comment: Micro scopic examination is performed on all urinalysis samples and only positive findings are reported. The test for blood on the chemical analytic portion of urinalysis may also be positive due to hemoglobinuria and myoglobinuria and if red blood cells are present they are quantified by microscopic examination. Performed By: #### 4 [id number] ####[facility] [address] [place], [place] [address] Abbi Choudhary M.D. [id number] Protein (U) [Mass/Vol] 100 mg/dL Abnormal Negative [facility] Comment on above: Order Comment: Micro scopic examination is performed on all urinalysis samples and only positive findings are reported. The test for blood on the chemical analytic portion of urinalysis may also be positive due to hemoglobinuria and myoglobinuria and if red blood cells are present they are quantified by microscopic examination. Performed By: #### 4 [id number] ####[facility] [address] [place], [place] [address] Abbi Choudhary M.D. [id number] RBC LM.HPF (Urine sed) [#/Area] 1 /[HPF] Normal 0-3 [facility] Comment on above: Order Comment: Micro scopic examination is performed on all urinalysis samples and only positive findings are reported. The test for blood on the chemical analytic portion of urinalysis may also be positive due to hemoglobinuria and myoglobinuria and if red blood cells are present they are quantified by microscopic examination. Performed By: #### 4 [id number] ####[facility] [address] [place], [place] [address] Abbi Choudhary M.D. [id number] Specific gravity (U) [Rel density] 1.017 Normal 1.005-1.025 [facility] Comment on above: Order Comment: Micro scopic examination is performed on all urinalysis samples and only positive findings are reported. The test for blood on the chemical analytic portion of urinalysis may also be positive due to hemoglobinuria and myoglobinuria and if red blood cells are present they are quantified by microscopic examination. Performed By: #### 4 6625 ####[facility] [address] [place], [place] [address] Abbi Choudhary M.D. [id number] SQUAMOUS EPITHELIAL < Normal 0-4 [facility] Comment on above: Order Comment: Micro scopic examination is performed on all urinalysis samples and only positive findings are reported. The test for blood on the chemical analytic portion of urinalysis may also be positive due to hemoglobinuria and myoglobinuria and if red blood cells are present they are quantified by microscopic examination. Performed By: #### 4 [id number] ####[facility] [address] [address] Abbi Choudhary M.D. [id number] UROBILINOGEN, URINE <2.0 Normal <2.0 [facility] Comment on above: Order Comment: Micro scopic examination is performed on all urinalysis samples and only positive findings are reported. The test for blood on the chemical analytic portion of urinalysis may also be positive due to hemoglobinuria and myoglobinuria and if red blood cells are present they are quantified by microscopic examination. Performed By: #### 4 6625 #### LAB [address] [place] [address] Abbi Choudhary M.D. [id number] WBC LM.HPF (Urine sed) [#/Area] 1 /[HPF] Normal 0-5 [facility] Comment on above: Order Comment: Micro scopic examination is performed on all urinalysis samples and only positive findings are reported. The test for blood on the chemical analytic portion of urinalysis may also be positive due to hemoglobinuria and myoglobinuria and if red blood cells are present they are quantified by microscopic examination. Performed By: #### 4 [id number] #### [facility] [address] [place], [place] [address] Abbi Choudhary M.D. [id number] UrinalysisOrdered By: Jessie Bae on 01-14-2024 Bacteria Auto Ql (U) None Seen None Se en /hpf [facility] Bilirubin Ql (U) Negative Negative [facility] Clarity Refractometry automated (U) Clear Clear [facility] Color (U) Yellow Colorless, Yellow [facility] Epithelial cells.squamous Auto (Urine sed) [#/Area] [facility] Glucose Auto test strip (U) [Mass/Vol] 150 mg/dL Abnormal Negative [facility] Hemoglobin Auto test strip Ql (U) Negative Negative [facility] Interpretation and review of laboratory results Abnormal [facility] Ketones (U) [Mass/Vol] Negative Negative mg/dL [facility] Leukocyte esterase Auto test strip Ql (U) Negative Negative [facility] Mucus Auto (Urine sed) [#/Area] Rare None Seen, Rare /lpf [facility] Nitrite Auto test strip Ql (U) Negative Negative [facility] pH (U) 5.0 [pH] 5.0 - 7.0 [facility] Protein (U) [Mass/Vol] 100 mg/dL Abnormal Negative [facility] RBC Auto (Urine sed) [#/Area] 1 [facility] Specific gravity (U) [Rel density] 1.017 1.005 - 1.025 [facility] Urobilinogen (U) [Mass/Vol] mg/dL NINF - 2.0 mg/dL [facility] WBC Auto (Urine sed) [#/Area] 1 [facility] Microscopic examinat ion is performed on all urinalysis samples and only positive findings are reported. The test for blood on the chemical analytic portion of urinalysis may also be positive due to hemoglobinuria and myoglobinuria and if red blood cells are present they are quantified by microscopic examination. [facility] CBCon 01-13-2024 AUTO NRBC 0.0 % Normal [facility] Comment on above: Performed By: #### 4 [id number] ####[facility] [address] [address] bAbi Choudhary M.D. [id number] AUTO NRBC ABS COUNT 0.00 K/mcL Normal 0.00-0.00 [facility] Comment on above: Performed By: #### 4 [id number] ####[facility] [address] [place], [place] [address] Abbi Choudhary M.D. [id number] Erythrocyte distribution width (RBC) [Ratio] 13.1 % Normal 11.6-14.8 [facility] Comment on above: Performed By: #### 4 [id number] ####[facility] [address] [place], [place] [address] Abbi Choudhary M.D. [id number] Hematocrit (Bld) [Volume fraction] 27.5 % Low 36.0-46.0 [facility] Comment on above: Performed By: #### 4 [id number] ####[facility] [address] [place], [place] [address] Abbi Choudhary M.D. [id number] Hemoglobin (Bld) [Mass/Vol] 9.3 g/dL Low 12.0-16.0 [facility] Comment on above: Performed By: #### 4 [id number] ####[facility] [address] [place], [place] [address] Abbi Choudhary M.D. [id number] MCH (RBC) [Entitic mass] 31.1 pg Normal 26.0-34.0 [facility] Comment on above: Performed By: #### 4 [id number] ####[facility] [address] [place], [place] [address] Abbi Choudhary M.D. [id number] MCV (RBC) [Entitic vol] 92.0 fL Normal 80.0-100.0 [facility] Comment on above: Performed By: #### 4 [id number] ####[facility] [address] [place], [place] [address] Abbi Choudhary M.D. [id number] MEAN CORPUSCULAR HEMOGLOBIN CONC 33.8 g/dL Normal 31.0-37.0 [facility] Comment on above: Performed By: #### 4 [id number] ####[facility] [address] [place], [place] [address] Abbi Choudhary M.D. [id number] Platelet mean volume (Bld) [Entitic vol] 8.6 fL Low 9.4-12.4 [facility] Comment on above: Performed By: #### 4 [id number] ####[facility] [address] [place], [place] [address] Abbi Choudhary M.D. [id number] Platelets (Bld) [#/Vol] 238 10*3/uL Normal 150-400 [facility] Comment on above: Performed By: #### 4 [id number] ####[facility] [address] [place], [place] [address] Abbi Choudhary M.D. [id number] RBC (Bld) [#/Vol] 2.99 10*6/uL Low 4.00-5.20 [facility] Comment on above: Performed By: #### 4 [id number] ####[facility] [address] [place], [place] [address] Abbi Choudhary M.D. [id number] WBC (Bld) [#/Vol] 7.09 10*3/uL Normal 4.50-11.00 [facility] Comment on above: Performed By: #### 4 [id number] ####[facility] [address] [place], [place] [address] Abbi Choudhary M.D. [id number] CBC panel Auto (Bld)on 01-12 Erythrocyte distribution width (RBC) [Entitic vol] 13.1 % 11.6 - 14.8 % [facility] Hematocrit (Bld) [Volume fraction] 27.5 % Low 36.0 - 46.0 % [facility] Hemoglobin (Bld) [Mass/Vol] 9.3 g/dL Low 12.0 - 16.0 g/dL [facility] Interpretation and review of laboratory results Abnormal [facility] MCH (RBC) [Entitic mass] 31.1 pg 26.0 - 34.0 pg [facility] MCHC (RBC) [Mass/Vol] 33.8 g/dL 31.0 - 37.0 g/dL [facility] MCV (RBC) [Entitic vol] 92.0 fL 80.0 - 100.0 fL [facility] Nucleated RBC (Bld) [#/Vol] 0.00 10*3/uL [facility] Nucleated RBC/100 WBC (Bld) [Ratio] 0.0 % [facility] Platelet mean volume (Bld) [Entitic vol] 8.6 fL Low 9.4 - 12.4 fL [facility] Platelets (Bld) [#/Vol] 238 10*3/uL [facility] RBC (Bld) [#/Vol] 2.99 10*6/uL Low [facility] WBC (Bld) [#/Vol] 7.09 10*3/uL [facility] CONSULTon 01-13-2024 CONSULT Normal [facility] CT FOOT LEFT WITHOUT CONTRAS Ton 01-13-2024 CT FOOT LEFT WITHOUT CONTRAST Normal [facility] Comment on above: Order [...] as described above. TROY/xochitl Workstation ID: [id number] [place] EXAMINATION: CT FOOT LEFT WITHOUT CONTRAST HISTORY: [...] The hardware is incompletely included on the [id number] for this study. There is cystic change [...] CT for evaluation of the soft tissues. [facility] Preston Rajan MD - 01/13/2024 EXAMINATION: [...] The hardware is incompletely included on the [id number] for this study. There is cystic change [...] as described above. TROY/xochitl Workstation ID: [id number] [facility] Radiology Study observation (narrative) [facility] CT Foot - left WO contrastOr dered By: Preston Rajan on 01-13-2024 [facility] Work Phone: ECG 12 Leadon 01-13-2024 Atrial Rate 97 BPM [facility] P [place] 55 degrees [facility] P-R Interval 190 ms [facility] Q-T Interval 346 ms [facility] QRS Duration 84 ms [facility] QTC Calculation (Bezet) 439 ms [facility] R [place] 18 degrees [facility] T [place] 27 degrees [facility] Ventricular Rate 97 BPM [facility] Normal sinus rhythm Possible Left atrial enlargement Confirmed by Monique Pillai MD ([id number]) on 01/13/2024 8:52:41 AM [facility] Glucose (Bld) [Mass/Vol]on 0 01-13-2024 Glucose [Mass/Vol] 177 mg/dL High 65 - 99 mg/dL [facility] Interpretation and review of laboratory results Abnormal [facility] Glucose [Mass/Vol] 119 mg/dL High 65 - 99 mg/dL [facility] Interpretation and review of laboratory results Abnormal [facility] Glucose [Mass/Vol] 116 mg/dL High 65 - 99 mg/dL [facility] Interpretation and review of laboratory results Abnormal [facility] Glucose [Mass/Vol] 103 mg/dL High 65 - 99 mg/dL [facility] Interpretation and review of laboratory results Abnormal [facility] Glucose [Mass/Vol] 122 mg/dL High 65 - 99 mg/dL [facility] Interpretation and review of laboratory results Abnormal [facility] POC GLUCOSE - RALSon 024 Glucose [Mass/Vol] 177 mg/dL High [address] [place] [address] Comment on above: Performed By: #### 4 [id number] ####[facility] [address] [place], [place] [address] Abbi Choudhary M.D. [id number] Glucose [Mass/Vol] 119 mg/dL High [address] [place] [address] Comment on above: Performed By: #### 4 [id number] ####[facility] [address] [place], [place] [address] Abbi Choudhary M.D. [id number] Glucose [Mass/Vol] 116 mg/dL High [address] [place] [address] Comment on above: Performed By: #### 4 [id number] ####[facility] [address] [place], [place] [address] Abbi Choudhary M.D. [id number] Glucose [Mass/Vol] 103 mg/dL [address] Comment on above: Performed By: #### 4 [id number] ####[facility] [address] [place], [place] [address] Abbi Choudhary M.D. [id number] Glucose [Mass/Vol] 122 mg/dL [address] Comment on above: Performed By: #### 4 [id number] ####[facility] [address] [place], [place] [address] Abbi Choudhary M.D. [id number] RENAL FUNCTION PANELon 01-12 Albumin [Mass/Vol] 3.1 g/dL Low 3.2-5.2 [facility] Comment on above: Order Comment: [facility] has implemented the eGFR calculation approach that does not have a coefficient for race that conforms to the NKF-ASN Task Force Recommendations. Performed By: #### 4 6449 ####[facility] [address] [place], [place] [address] Abbi Choudhary M.D. [id number] Anion gap [Moles/Vol] 16 mmol/L Normal -20 [facility] Comment on above: Order Comment: [facility] has implemented the eGFR calculation approach that does not have a coefficient for race that conforms to the NKF-ASN Task Force Recommendations. Performed By: #### 4 [id number] ####[facility] [address] [place], [place] [address] Abbi Choudhary M.D. [id number] Calcium [Mass/Vol] 8.4 mg/dL Normal 8.4-10.2 [facility] Comment on above: Order Comment: [facility] [employer] has implemented the eGFR calculation approach that does not have a coefficient for race that conforms to the NKF-ASN Task Force Recommendations. Performed By: #### 4 [id number] ####[facility] [address] [place], [place] [address] Abbi Choudhary M.D. [id number] Chloride [Moles/Vol] 105 mmol/L Normal 98-108 [facility] Comment on above: Order Comment: [facility] [employer] has implemented the eGFR calculation approach that does not have a coefficient for race that conforms to the NKF-ASN Task Force Recommendations. Performed By: #### 4 6449 ####[facility] [address] [place], [place] [address] Abbi Choudhary M.D. [id number] Creatinine [Mass/Vol] 1.32 mg/dL High 0.40-1.10 [facility] Comment on above: Order Comment: [facility] [employer] has implemented the eGFR calculation approach that does not have a coefficient for race that conforms to the NKF-ASN Task Force Recommendations. Performed By: #### 4 6449 ####[facility] [address] [place], [place] [address] Abbi Choudhary M.D. [id number] EGFR 51 mL/min/1.73 m2 Low >=60 [facility] Comment on above: Order Comment: [facility] [employer] has implemented the eGFR calculation approach that does not have a coefficient for race that conforms to the NKF-ASN Task Force Recommendations. Result Comment: Lorie mated GFR was calculated using the 2020 CKD-EPI creatinine equation. Performed By: #### 4 6449 ####[facility] [address] [place], [place] [address]Alisia Choudhary M.D. [id number] Glucose [Mass/Vol] 157 mg/dL High 65-99 [facility] Comment on above: Order Comment: [facility] has implemented the eGFR calculation approach that does not have a coefficient for race that conforms to the NKF-ASN Task Force Recommendations. Performed By: #### 4 6449 ####[facility] [address] [place], [place] [address] Abbi Choudhary M.D. [id number] HCO3 (Bld) [Moles/Vol] 21 mmol/L Normal 21-32 [facility] Comment on above: Order Comment: [facility] [employer] has implemented the eGFR calculation approach that does not have a coefficient for race that conforms to the NKF-ASN Task Force Recommendations. Performed By: #### 4 6449 ####[facility] [address] [place], [place] [address] Abbi Choudhary M.D. [id number] Phosphate [Mass/Vol] 3.7 mg/dL Normal 2.7-4.5 [facility] Comment on above: Order Comment: [facility] [employer] has implemented the eGFR calculation approach that does not have a coefficient for race that conforms to the NKF-ASN Task Force Recommendations. Performed By: #### 4 6449 ####[facility] [address] [place], [place] [address] Abbi Choudhary M.D. [id number] Potassium [Moles/Vol] 4.1 mmol/L Normal 3.5-5.1 [facility] Comment on above: Order Comment: [facility] has implemented the eGFR calculation approach that does not have a coefficient for race that conforms to the NKF-ASN Task Force Recommendations. Result Comment: Slig htly Hemolyzed Performed By: #### 4 6449 ####[facility] [address] [place], [place] [address] Abbi Choudhary M.D. [id number] Sodium [Moles/Vol] 138 mmol/L Normal 135-145 [facility] Comment on above: Order Comment: [facility] has implemented the eGFR calculation approach that does not have a coefficient for race that conforms to the NKF-ASN Task Force Recommendations. Performed By: #### 4 6449 ####[facility] [address] [place], [place] [address] Abbi Choudhary M.D. [id number] Urea nitrogen [Mass/Vol] 27 mg/dL High 8-25 [facility] Comment on above: Order Comment: [facility] has implemented the eGFR calculation approach that does not have a coefficient for race that conforms to the NKF-ASN Task Force Recommendations. Performed By: #### 4 6449 ####[facility] [address] [place], [place] [address] Abbi Choudhary M.D. [id number] Urea nitrogen/Creatinine [Mass ratio] 20.5 mg/mg High 10.0-20.0 [facility] Comment on above: Order Comment: [facility] has implemented the eGFR calculation approach that does not have a coefficient for race that conforms to the NKF-ASN Task Force Recommendations. Performed By: #### 4 [id number] ####[facility] [address] [place], [place] [address] Abbi Choudhary M.D. [id number] Renal function 2000 panelOrd ered By: Alberta Vo on 01-13-2024 Albumin [Mass/Vol] 3.1 g/dL Low 3.2 - 5.2 g/dL [facility] Anion gap [Moles/Vol] 16 mmol/L 10 - 2 0 mmol/L [facility] Calcium [Mass/Vol] 8.4 mg/dL 8.4 - 10. 2 mg/dL [facility] Chloride [Moles/Vol] 105 mmol/L 98 - 10 8 mmol/L [facility] Creatinine [Mass/Vol] 1.32 mg/dL High 0.40 - 1.10 mg/dL [facility] GFR/1.73 sq M.predicted CKD-EPI (S/P/Bld) [Vol rate/Area] 51 Low - PINF [facility] Comment on above: Estimated GFR was ca lculated using the 2020 CKD-EPI creatinine equation. Glucose [Mass/Vol] 157 mg/dL High 65 - 99 mg/dL [facility] HCO3 [Moles/Vol] 21 mmol/L 21 - 32 mmol/L [facility] Interpretation and review of laboratory results Abnormal [facility] Phosphate [Mass/Vol] 3.7 mg/dL 2.7 - 4 .5 mg/dL [facility] Potassium [Moles/Vol] 4.1 mmol/L 3.5 - 5.1 mmol/L [facility] Comment on above: Slightly Hemolyzed Sodium [Moles/Vol] 138 mmol/L 135 - 145 mmol/L [facility] Urea nitrogen [Mass/Vol] 27 mg/dL High 8 - 25 mg/dL [facility] Urea nitrogen/Creatinine [Mass ratio] 20.5 mg/mg High 10.0 - 20.0 [facility] has implemented the eGFR calculation approach that does not have a coefficient for race that conforms to the NKF-ASN Task Force Recommendations. [facility] BASIC METABOLIC PANELon 12-24-2023 Anion gap [Moles/Vol] 14 mmol/L Normal 10-20 [facility] Comment on above: Order Comment: [facility] has implemented the eGFR calculation approach that does not have a coefficient for race that conforms to the NKF-ASN Task Force Recommendations. Performed By: #### 4 6124 ####[facility] [address] [place], [place] [address] Abbi Choudhary M.D. [id number] Calcium [Mass/Vol] 9.0 mg/dL Normal 8.4-10.2 [facility] Comment on above: Order Comment: [facility] [employer] has implemented the eGFR calculation approach that does not have a coefficient for race that conforms to the NKF-ASN Task Force Recommendations. Performed By: #### 4 6124 ####[facility] [address] [place], [place] [address] Abbi Choudhary M.D. [id number] Chloride [Moles/Vol] 104 mmol/L Normal 98-108 [facility] Comment on above: Order Comment: [facility] has implemented the eGFR calculation approach that does not have a coefficient for race that conforms to the NKF-ASN Task Force Recommendations. Performed By: #### 4 6124 ####[facility] [address] [place], [place] [address] Abbi Choudhary M.D. [id number] Creatinine [Mass/Vol] 1.06 mg/dL Normal 0.40-1.10 [facility] Comment on above: Order Comment: [facility] has implemented the eGFR calculation approach that does not have a coefficient for race that conforms to the NKF-ASN Task Force Recommendations. Performed By: #### 4 [id number] ####[facility] [address] [place], [place] [address] Abbi Choudhary M.D. [id number] EGFR 66 mL/min/1.73 m2 Normal >=60 [facility] Comment on above: Order Comment: [facility] has implemented the eGFR calculation approach that does not have a coefficient for race that conforms to the NKF-ASN Task Force Recommendations. Result Comment: Lorie mated GFR was calculated using the 2020 CKD-EPI creatinine equation. Performed By: #### 4 [id number] ####[facility] [address] [place], [place] [address] Abbi Choudhary M.D. [id number] Glucose [Mass/Vol] 109 mg/dL High 65-99 [facility] Comment on above: Order Comment: [facility] has implemented the eGFR calculation approach that does not have a coefficient for race that conforms to the NKF-ASN Task Force Recommendations. Performed By: #### 4 6124 ####[facility] [address] [place], [place] [address] Abbi Choudhary M.D. [id number] HCO3 (Bld) [Moles/Vol] 26 mmol/L Normal 21-32 [facility] Comment on above: Order Comment: [facility] has implemented the eGFR calculation approach that does not have a coefficient for race that conforms to the NKF-ASN Task Force Recommendations. Performed By: #### 4 6124 ####[facility] [address] [place], [place] [address] Abbi Choudhary M.D. [id number] Potassium [Moles/Vol] 4.1 mmol/L Normal 3.5-5.1 [facility] Comment on above: Order Comment: [facility] has implemented the eGFR calculation approach that does not have a coefficient for race that conforms to the NKF-ASN Task Force Recommendations. Performed By: #### 4 [id number] ####[facility] [address] [place], [place] [address] Abbi Choudhary M.D. [id number] Sodium [Moles/Vol] 140 mmol/L Normal 135-145 [facility] Comment on above: Order Comment: [facility] has implemented the eGFR calculation approach that does not have a coefficient for race that conforms to the NKF-ASN Task Force Recommendations. Performed By: #### 4 [id number] ####[facility] [address] [place], [place] [address] Abbi Choudhary M.D. [id number] Urea nitrogen [Mass/Vol] 24 mg/dL Normal 8-25 [facility] Comment on above: Order Comment: [facility] has implemented the eGFR calculation approach that does not have a coefficient for race that conforms to the NKF-ASN Task Force Recommendations. Performed By: #### 4 [id number] ####[facility] [address] [place], [place] [address] Abbi Choudhary M.D. [id number] Urea nitrogen/Creatinine [Mass ratio] 22.6 mg/mg High 10.0-20.0 [facility] Comment on above: Order Comment: [facility] has implemented the eGFR calculation approach that does not have a coefficient for race that conforms to the NKF-ASN Task Force Recommendations. Performed By: #### 4 [id number] ####[facility] [address] [place], [place] [address] Abbi Choudhary M.D. [id number] Basic metabolic 2000 panelon 01-12-2024 Anion gap [Moles/Vol] 14 mmol/L 10 - 2 0 mmol/L [facility] Calcium [Mass/Vol] 9.0 mg/dL 8.4 - 10. 2 mg/dL [facility] Chloride [Moles/Vol] 104 mmol/L 98 - 10 8 mmol/L [facility] Creatinine [Mass/Vol] 1.06 mg/dL 0.40 - 1.10 mg/dL [facility] GFR/1.73 sq M.predicted CKD-EPI (S/P/Bld) [Vol rate/Area] 66 - PINF [facility] Comment on above: Estimated GFR was ca lculated using the 2020 CKD-EPI creatinine equation. Glucose [Mass/Vol] 109 mg/dL High 65 - 99 mg/dL [facility] HCO3 [Moles/Vol] 26 mmol/L 21 - 32 mmol/L [facility] Interpretation and review of laboratory results Abnormal [facility] Potassium [Moles/Vol] 4.1 mmol/L 3.5 - 5.1 mmol/L [facility] Sodium [Moles/Vol] 140 mmol/L 135 - 145 mmol/L [facility] Urea nitrogen [Mass/Vol] 24 mg/dL 8 - 25 mg/dL [facility] Urea nitrogen/Creatinine [Mass ratio] 22.6 mg/mg High 10.0 - 20.0 [facility] has implemented the eGFR calculation approach that does not have a coefficient for race that conforms to the NKF-ASN Task Force Recommendations. [facility] CBC Auto Differentialon 12-24 Basophils (Bld) [#/Vol] 0.06 10*3/uL [facility] Basophils/100 WBC (Bld) 0.6 % [facility] Eosinophils (Bld) [#/Vol] 0.63 10*3/uL High [facility] Eosinophils/100 WBC (Bld) 6.5 % [facility] Erythrocyte distribution width (RBC) [Entitic vol] 12.9 % 11.6 - 14.8 % [facility] Hematocrit (Bld) [Volume fraction] 34.6 % Low 36.0 - 46.0 % [facility] Hemoglobin (Bld) [Mass/Vol] 11.7 g/dL Low 12.0 - 16.0 g/dL [facility] Immature granulocytes (Bld) [#/Vol] 0.05 10*3/uL [facility] Immature granulocytes/100 WBC (Bld) 0.50 % [facility] Comment on above: The IG parameter is the percentage of metamyelocytes, myelocytes and promyelocytes. An immature granulocyte count (IG) of 1% or more suggests the possibility of infection, an IG count of 3% is very likely related to an infection. Interpretation and review of laboratory results Abnormal [facility] Lymphocytes (Bld) [#/Vol] 1.77 10*3/uL [facility] Lymphocytes/100 WBC (Bld) 18.3 % [facility] MCH (RBC) [Entitic mass] 31.0 pg 26.0 - 34.0 pg [facility] MCHC (RBC) [Mass/Vol] 33.8 g/dL 31.0 - 37.0 g/dL [facility] MCV (RBC) [Entitic vol] 91.5 fL 80.0 - 100.0 fL [facility] Monocytes (Bld) [#/Vol] 0.47 10*3/uL [facility] Monocytes/100 WBC (Bld) 4.9 % [facility] Neutrophils (Bld) [#/Vol] 6.70 10*3/uL [facility] Neutrophils/100 WBC (Bld) 69.2 % [facility] Nucleated RBC (Bld) [#/Vol] 0.00 10*3/uL [facility] Nucleated RBC/100 WBC (Bld) [Ratio] 0.0 % [facility] Platelet mean volume (Bld) [Entitic vol] 9.1 fL Low 9.4 - 12.4 fL [facility] Platelets (Bld) [#/Vol] 291 10*3/uL [facility] RBC (Bld) [#/Vol] 3.78 10*6/uL Low [facility] WBC (Bld) [#/Vol] 9.68 10*3/uL [facility] WITH AUTO DIFFERENTIALon 01-12-2024 AUTO NRBC 0.0 % Normal [facility] Comment on above: Performed By: #### L [id number] ####[facility] [address] [place] [address] Abbi Choudhary M.D. [id number] AUTO NRBC ABS COUNT 0.00 K/mcL Normal 0.00-0.00 [facility] Comment on above: Performed By: #### L [id number] ####[facility] [address] [place] [address] Abbi Choudhary M.D. [id number] BASOPHILS ABSOLUTE COUNT 0.06 K/mcL Normal 0.00-0.30 [facility] Comment on above: Performed By: #### L [id number] ####[facility] [address] [place] [address] Abbi Choudhary M.D. [id number] Basophils/100 WBC (Bld) 0.6 % Normal [facility] Comment on above: Performed By: #### L [id number] ####[facility] [address] [place] [address] Abbi Choudhary M.D. [id number] Eosinophils (Bld) [#/Vol] 0.63 10*3/uL High 0.00-0.50 [facility] Comment on above: Performed By: #### L [id number] ####[facility] [address] [place] [address] Abbi Choudhary M.D. [id number] Eosinophils/100 WBC (Bld) 6.5 % Normal [facility] Comment on above: Performed By: #### L [id number] ####[facility] [address] [place] [address] Abbi Choudhary M.D. [id number] Erythrocyte distribution width (RBC) [Ratio] 12.9 % Normal 11.6-14.8 [facility] Comment on above: Performed By: #### L [id number] ####[facility] [address] [place] [address] Abbi Choudhary M.D. [id number] Hematocrit (Bld) [Volume fraction] 34.6 % Low 36.0-46.0 [facility] Comment on above: Performed By: #### L [id number] ####[facility] [address] [place] [address] Abbi Choudhary M.D. [id number] Hemoglobin (Bld) [Mass/Vol] 11.7 g/dL Low 12.0-16.0 [facility] Comment on above: Performed By: #### L [id number] ####[facility] [address] [place] [address] Abbi Choudhary M.D. [id number] IG ABSOLUTE 0.05 K/mcL Normal 0.00-0.30 [facility] Comment on above: Performed By: #### L [id number] ####[facility] [address] [place] [address] Abbi Choudhary M.D. [id number] IG PERCENT 0.50 % Normal [facility] Comment on above: Result Comment: The IG parameter is the percentage of metamyelocytes, myelocytes and promyelocytes. An immature granulocyte count (IG) of 1% or more suggests the possibility of infection, an IG count of 3% is very likely related to an infection. Performed By: #### L [id number] ####[facility] [address] [place], [place] [address] Abbi Choudhary M.D. [id number] Lymphocytes (Bld) [#/Vol] 1.77 10*3/uL Normal 0.90-4.00 [facility] Comment on above: Performed By: #### L [id number] ####[facility] [address] [place] [address] Abbi Choudhary M.D. [id number] Lymphocytes/100 WBC (Bld) 18.3 % Normal [facility] Comment on above: Performed By: #### L [id number] ####[facility] [address] [place] [address] Abbi Choudhary M.D. [id number] MCH (RBC) [Entitic mass] 31.0 pg Normal 26.0-34.0 [facility] Comment on above: Performed By: #### L [id number] ####[facility] [address] [place] [address] Abbi Choudhary M.D. [id number] MCV (RBC) [Entitic vol] 91.5 fL Normal 80.0-100.0 [facility] Comment on above: Performed By: #### L [id number] ####[facility] [address] [place], [place] [address] Abbi Choudhary M.D. [id number] MEAN CORPUSCULAR HEMOGLOBIN CONC 33.8 g/dL Normal 31.0-37.0 [facility] Comment on above: Performed By: #### L [id number] ####[facility] [address] [place] [address] Abbi Choudhary M.D. [id number] Monocytes (Bld) [#/Vol] 0.47 10*3/uL Normal 0.30-0.90 [facility] Comment on above: Performed By: #### L [id number] ####[facility] [address] [place] [address] Abbi Choudhary M.D. [id number] Monocytes/100 WBC (Bld) 4.9 % Normal [facility] Comment on above: Performed By: #### L [id number] ####[facility] [address] [place], [place] [address] Abbi Choudhary M.D. [id number] NEUTROPHILS ABSOLUTE COUNT 6.70 K/mcL Normal 1.70-7.00 [facility] Comment on above: Performed By: #### L [id number] ####[facility] [address] [place], [place] [address] Abbi Choudhary M.D. [id number] Neutrophils/100 WBC (Bld) 69.2 % Normal [facility] Comment on above: Performed By: #### L [id number] ####[facility] [address] [place], [place] [address] Abbi Choudhary M.D. [id number] Platelet mean volume (Bld) [Entitic vol] 9.1 fL Low 9.4-12.4 [facility] Comment on above: Performed By: #### L [id number] ####[facility] [address] [place], [place] [address] Abbi Choudhary M.D. [id number] Platelets (Bld) [#/Vol] 291 10*3/uL Normal 150-400 [facility] Comment on above: Performed By: #### L [id number] ####[facility] [address] [place], [place] [address] Abbi Choudhary M.D. [id number] RBC (Bld) [#/Vol] 3.78 10*6/uL Low 4.00-5.20 [facility] Comment on above: Performed By: #### L [id number] ####[facility] [address] [place], [place] [address] Abbi Choudhary M.D. [id number] WBC (Bld) [#/Vol] 9.68 10*3/uL Normal 4.50-11.00 [facility] Comment on above: Performed By: #### L [id number] ####[facility] [address] [place], [place] [address] Abbi Choudhary M.D. [id number] CRP [Mass/Vol]on 01-12-2024 Interpretation and review of laboratory results Normal [facility] CRP, INFLAMMATIONon 01-12-20 CRP [Mass/Vol] 8.2 mg/L Normal 0.0-10.0 [facility] Comment on above: Performed By: #### 4 [id number] #### LAB [address] [place], [place] [address] Abbi Choudhary M.D. [id number] CRP, Inflammationon 01-12-20 CRP [Mass/Vol] 8.2 mg/L 0.0 - 10.0 mg/L [facility] ED Prov Noteon 01-12-2024 ED Prov Note Normal [facility] ESR Westergren method (Bld) [Velocity]on 01-12-2024 ESR (Bld) [Velocity] 40 mm/h High [facility] Interpretation and review of laboratory results Abnormal [facility] Glucose (Bld) [Mass/Vol]on 0 01-12-2024 Glucose [Mass/Vol] 92 mg/dL 65 - 99 mg/dL [facility] Interpretation and review of laboratory results Normal [facility] Gold Topon 01-12-2024 Extra Tube Hold for add-ons. [facility] Comment on above: Auto resulted. [facility] H AND Paulino 01-12-2024 H AND P Normal [facility] HEMOGLOBIN A1Con 01-12-2024 Glucose [Mass/Vol] 220 mg/dL High 74-114 [facility] Comment on above: Performed By: #### 4 [id number] ####[facility] [address] [place], [place] [address] Abbi Choudhary M.D. [id number] HbA1c (Bld) [Mass fraction] 9.3 % High 4.2-5.6 [facility] Comment on above: Performed By: #### 4 8202 ####[facility] [address] [place], [place] [address] Abbi Choudhary M.D. [id number] HbA1c (Bld) [Mass fraction]o n 01-12-2024 Average glucose Estimated from glycated hemoglobin (Bld) [Mass/Vol] 220 mg/dL High 74 - 114 mg/dL [facility] Interpretation and review of laboratory results Abnormal [facility] Hemoglobin A1con 01-12-2024 HbA1c (Bld) [Mass fraction] 9.3 % High 4.2 - 5.6 % [facility] No Panel Informationon 01-11 Extra Tube Hold for add-ons. [facility] Comment on above: Auto resulted. [facility] POC GLUCOSE - Micky 024 Glucose [Mass/Vol] 92 mg/dL Normal 65-99 [facility] Comment on above: Performed By: #### 4 6932 ####[facility] [address] [place], [place] [address] Abbi Choudhary M.D. [id number] SEDIMENTATION RATEon 024 SEDIMENTATION RATE, ERYTHROCYTE 40 mm/hr High 0-20 [facility] Comment on above: Performed By: #### 4 6477 ####[facility] [address] [place], [place] [address] Abbi Choudhary M.D. [id number] XR FOOT LEFT 3+ VIEWS (STAND ILIA)on 01-12-2024 XR FOOT LEFT 3+ VIEWS (STANDARD) Normal [facility] Comment on above: Order [...] which is more sensitive. Workstation ID: [id number] RIS EXAMINATION: XR FOOT LEFT 3+ VIEWS [...] or bony demineralization. Forefoot soft tissue swelling. [facility] Vic Mac, DO - 01/12/2024 EXAMINATION: XR [...] which is more sensitive. Workstation ID: [id number] [facility] Radiology Study observation (narrative) [facility] XR Foot - left 3 ViewsOrdere d By: Vic Mac on 01-12-2024 [facility] Work Phone: ED Prov Noteon 01-10-2024 ED Prov Note Normal [facility] XR FOOT LEFT 3+ VIEWS (STAND ILIA)on 01-09-2024 XR FOOT LEFT 3+ VIEWS (STANDARD) Normal [facility] Comment on above: Order Comment: Injur y/Trauma or Illness?:Illness/OtherHow long have you had these symptoms (acute/chronic)?:AcuteReason for exam?:1st toe painHistory of cancer?:uSurgeries, chemotherapy, or radiation?:pacemakerType of Exam?:InitialAdditional signs and symptoms?:1st toe pain BASIC METABOLIC PANELon 11-22 Anion gap [Moles/Vol] 15 mmol/L Normal 10-20 [facility] Comment on above: Order Comment: [facility] has implemented the eGFR calculation approach that does not have a coefficient for race that conforms to the NKF-ASN Task Force Recommendations. Performed By: #### 4 6124 ####[facility] [address] [place], [place] [address] Abbi Choudhary M.D. [id number] Calcium [Mass/Vol] 9.0 mg/dL Normal 8.4-10.2 [facility] Comment on above: Order Comment: [facility] [employer] has implemented the eGFR calculation approach that does not have a coefficient for race that conforms to the NKF-ASN Task Force Recommendations. Performed By: #### 4 [id number] ####[facility] [address] [place], [place] [address] Abbi Choudhary M.D. [id number] Chloride [Moles/Vol] 100 mmol/L Normal 98-108 [facility] Comment on above: Order Comment: [facility] [employer] has implemented the eGFR calculation approach that does not have a coefficient for race that conforms to the NKF-ASN Task Force Recommendations. Performed By: #### 4 [id number] ####[facility] [address] [place], [place] [address] Abbi Choudhary M.D. [id number] Creatinine [Mass/Vol] 1.27 mg/dL High 0.40-1.10 [facility] Comment on above: Order Comment: [facility] [employer] has implemented the eGFR calculation approach that does not have a coefficient for race that conforms to the NKF-ASN Task Force Recommendations. Performed By: #### 4 6124 ####[facility] [address] [place], [place] [address] Abbi Choudhary M.D. [id number] EGFR 53 mL/min/1.73 m2 Low >=60 [facility] Comment on above: Order Comment: [facility] [employer] has implemented the eGFR calculation approach that does not have a coefficient for race that conforms to the NKF-ASN Task Force Recommendations. Result Comment: Lorie mated GFR was calculated using the 2020 CKD-EPI creatinine equation. Performed By: #### 4 6124 ####[facility] [address] [place], [place] [address] Abbi Choudhary M.D. [id number] Glucose [Mass/Vol] 487 mg/dL Off scale high 65-99 [facility] Comment on above: Order Comment: [facility] has implemented the eGFR calculation approach that does not have a coefficient for race that conforms to the NKF-ASN Task Force Recommendations. Performed By: #### 4 6124 ####[facility] [address] [place], [place] [address] Abbi Choudhary M.D. [id number] HCO3 (Bld) [Moles/Vol] 23 mmol/L Normal 21-32 [facility] Comment on above: Order Comment: [facility] has implemented the eGFR calculation approach that does not have a coefficient for race that conforms to the NKF-ASN Task Force Recommendations. Performed By: #### 4 6124 ####[facility] [address] [place], [place] [address] Abbi Choudhary M.D. [id number] Potassium [Moles/Vol] 5.0 mmol/L Normal 3.5-5.1 [facility] Comment on above: Order Comment: [facility] [employer] has implemented the eGFR calculation approach that does not have a coefficient for race that conforms to the NKF-ASN Task Force Recommendations. Performed By: #### 4 6124 ####[facility] [address] [place], [place] [address] bAbi Choudhary M.D. [id number] Sodium [Moles/Vol] 133 mmol/L Low 135-145 [facility] Comment on above: Order Comment: [facility] [employer] has implemented the eGFR calculation approach that does not have a coefficient for race that conforms to the NKF-ASN Task Force Recommendations. Performed By: #### 4 6124 ####[facility] [address] [place], [place] [address] Abbi Choudhary M.D. [id number] Urea nitrogen [Mass/Vol] 30 mg/dL High 8-25 [facility] Comment on above: Order Comment: [facility] has implemented the eGFR calculation approach that does not have a coefficient for race that conforms to the NKF-ASN Task Force Recommendations. Performed By: #### 4 6124 ####[facility] [address] [place] [address] Abbi Cohudhary M.D. [id number] Urea nitrogen/Creatinine [Mass ratio] 23.6 mg/mg High 10.0-20.0 [facility] Comment on above: Order Comment: [facility] has implemented the eGFR calculation approach that does not have a coefficient for race that conforms to the NKF-ASN Task Force Recommendations. Performed By: #### 4 6124 ####[facility] [address] [place] [address] Abbi Choudhary M.D. [id number] CBC WITH AUTO DIFFERENTIALon 12-07-2023 AUTO NRBC 0.0 % Normal [facility] Comment on above: Performed By: #### L [id number] ####[facility] [address] [place] [address] Abbi Choudhary M.D. [id number] AUTO NRBC ABS COUNT 0.00 K/mcL Normal 0.00-0.00 [facility] Comment on above: Performed By: #### L [id number] ####[facility] [address] [place] [address] Abbi Choudhary M.D. [id number] BASOPHILS ABSOLUTE COUNT 0.08 K/mcL Normal 0.00-0.30 [facility] Comment on above: Performed By: #### L [id number] ####[facility] [address] [place] [address] Abbi Choudhary M.D. [id number] Basophils/100 WBC (Bld) 0.8 % Normal [facility] Comment on above: Performed By: #### L [id number] ####[facility] [address] [place] [address] Abbi Choudhary M.D. [id number] Eosinophils (Bld) [#/Vol] 0.26 10*3/uL Normal 0.00-0.50 [facility] Comment on above: Performed By: #### L [id number] ####[facility] [address] [place] [address] Abbi Choudhary M.D. [id number] Eosinophils/100 WBC (Bld) 2.7 % Normal [facility] Comment on above: Performed By: #### L [id number] ####[facility] [address] [place] [address] Abbi Choudhary M.D. [id number] Erythrocyte distribution width (RBC) [Ratio] 12.6 % Normal 11.6-14.8 [facility] Comment on above: Performed By: #### L [id number] ####[facility] [address] [place] [address] Abbi Choudhary M.D. [id number] Hematocrit (Bld) [Volume fraction] 33.1 % Low 36.0-46.0 [facility] Comment on above: Performed By: #### L [id number] ####[facility] [address] [place] [address] Abbi Choudhary M.D. [id number] Hemoglobin (Bld) [Mass/Vol] 11.2 g/dL Low 12.0-16.0 [facility] Comment on above: Performed By: #### L [id number] ####[facility] [address] [place] [address] Abbi Choudhary M.D. [id number] IG ABSOLUTE 0.05 K/mcL Normal 0.00-0.30 [facility] Comment on above: Performed By: #### L [id number] ####[facility] [address] [place] [address] Abbi Choudhary M.D. [id number] IG PERCENT 0.50 % Normal [facility] Comment on above: Result Comment: The IG parameter is the percentage of metamyelocytes, myelocytes and promyelocytes. An immature granulocyte count (IG) of 1% or more suggests the possibility of infection, an IG count of 3% is very likely related to an infection. Performed By: #### L [id number] ####[facility] [address] [place] [address] Abbi Choudhary M.D. [id number] Lymphocytes (Bld) [#/Vol] 2.06 10*3/uL Normal 0.90-4.00 [facility] Comment on above: Performed By: #### L [id number] ####[facility] [address] [place] [address] Abbi Choudhary M.D. [id number] Lymphocytes/100 WBC (Bld) 21.3 % Normal [facility] Comment on above: Performed By: #### L [id number] ####[facility] [address] [place] [address] Abbi Choudhary M.D. [id number] MCH (RBC) [Entitic mass] 30.5 pg Normal 26.0-34.0 [facility] Comment on above: Performed By: #### L [id number] ####[facility] [address] [place] [address] Abbi Choudhary M.D. [id number] MCV (RBC) [Entitic vol] 90.2 fL Normal 80.0-100.0 [facility] Comment on above: Performed By: #### L [id number] ####[facility] [address] [place] [address] Abbi Choudhary M.D. [id number] MEAN CORPUSCULAR HEMOGLOBIN CONC 33.8 g/dL Normal 31.0-37.0 [facility] Comment on above: Performed By: #### L [id number] ####[facility] [address] [place] [address] Abbi Choudhary M.D. [id number] Monocytes (Bld) [#/Vol] 0.54 10*3/uL Normal 0.30-0.90 [facility] Comment on above: Performed By: #### L [id number] ####[facility] [address] [place] [address] Abbi Choudhary M.D. [id number] Monocytes/100 WBC (Bld) 5.6 % Normal [facility] Comment on above: Performed By: #### L [id number] ####[facility] [address] [place] [address] Abbi Choudhary M.D. [id number] NEUTROPHILS ABSOLUTE COUNT 6.67 K/mcL Normal 1.70-7.00 [facility] Comment on above: Performed By: #### L [id number] ####[facility] [address] [place], [place] [address] Abbi Choudhary M.D. [id number] Neutrophils/100 WBC (Bld) 69.1 % Normal [facility] Comment on above: Performed By: #### L [id number] ####[facility] [address] [place], [place] [address] Abbi Choudhary M.D. [id number] Platelet mean volume (Bld) [Entitic vol] 8.9 fL Low 9.4-12.4 [facility] Comment on above: Performed By: #### L [id number] ####[facility] [address] [place] [address] Abbi Choudhary M.D. [id number] Platelets (Bld) [#/Vol] 271 10*3/uL Normal 150-400 [facility] Comment on above: Performed By: #### L [id number] ####[facility] [address] [place], [place] [address] Abbi Choudhary M.D. [id number] RBC (Bld) [#/Vol] 3.67 10*6/uL Low 4.00-5.20 [facility] Comment on above: Performed By: #### L [id number] ####[facility] [address] [place] [address] Abbi Choudhary M.D. [id number] WBC (Bld) [#/Vol] 9.66 10*3/uL Normal 4.50-11.00 [facility] Comment on above: Performed By: #### L [id number] ####[facility] [address] [place], [place] [address] Abbi Choudhary M.D. [id number] D-DIMER, QUANTITATIVEon 11-22 D-DIMER QUANTITATIVE 0.42 mcg/mL FEU Normal 0.27-0.49 [facility] Comment on above: Order Comment: A [...] D-dimer alone. Performed By: #### 4 5434 ####[facility] [address] [place], [place] [address]Alisia Choudhary M.D. [id number] ED Prov Noteon 12-07-2023 ED Prov Note Normal [facility] NT PRO BNPon 12-07-2023 Natriuretic peptide B (Bld) [Mass/Vol] 124 pg/mL Normal 0-300 [facility] Comment on above: Order Comment: Pride Study Cut-offsRule In:< /= 50 Years >450 pg/mL51 Years - 75 Years >900 pg/mL76 Years - 99 Years >1800 pg/mLRule Out:All patients <300 pg/mL Performed By: #### 4 7395 ####[facility] [address] [place], [place] [address]Alisia Choudhary M.D. [id number] POC GLUCOSE - [facility] 024 Glucose [Mass/Vol] 339 mg/dL High [address] [place] [address] Comment on above: Performed By: #### 4 6932 ####[facility] [address] [place], [place] [address]Alisia Choudhary M.D. [id number] Glucose [Mass/Vol] 454 mg/dL Off scale high [address] [place] [address] Comment on above: Order Comment: Criti marquita result acted upon time of test. Test performed at bedside. Performed By: #### 4 6932 ####[facility] [address] [place], [place] Julio Choudhary M.D. [id number] TROPONINon 12-07-2023 TROPONIN T DELTA CHANGE INTERPRETATION Delta troponin requires at least 3 hours between collections. Normal [facility] Comment on above: Performed By: #### 4 6608 ####[facility] [address] [place], [place] [address]Olivia EscobarD. [id number] TROPONIN T NG/L 17 ng/L Off scale high <=14 [facility] Comment on above: Performed By: #### 4 6608 ####[facility] [address] [place], [place] [address] Abbi Choudhary M.D. [id number] BASELINE TROPONIN T NG/L 18 ng/L Off scale high <=14 [facility] Comment on above: Performed By: #### 4 6608 ####[facility] [address] [place] [address] Abbi Choudhary M.D. [id number] TROPONIN T INTERPRETATION Possible acute cardiac injury. Normal [facility] Comment on above: Performed By: #### 4 6608 ####[facility] [address] [place] [address] Abbi Choudhary M.D. [id number] XR CHEST PA/APon 12-07-2023 XR CHEST PA/AP Normal [facility] Comment on above: Order Comment: Injur y/Trauma or Illness?:Illness/OtherHow long have you had these symptoms (acute/chronic)?:AcuteReason for exam?:cpHistory of cancer?:uSurgeries, chemotherapy, or radiation?:pacemakerType of Exam?:InitialAdditional signs and symptoms?:Pt arrived via ems from home with c/o 7/10 mid sternal chest pain that started 2 hours ago. COVID-19, Molecularon 2023 SARS-CoV-2 (COVID-19) RdRp gene EBONIE+probe Ql (Resp) Not detected Not Detected [facility] Comment on above: Testing was performe d using the [employer] ID NOW COVID-19 assay on the ID NOW platform. This test has not been approved for use in asymptomatic patients and its performance in this patient population has not been evaluated. Negative results do not rule out the presence of SARS-CoV-2/COVID-19. POC Influenza Aon 12-01-2023 FLUAV Ag Ql (Nph) Negative Negative [facility] POC Influenza Bon 12-01-2023 FLUBV Ag Ql (Nph) Negative Negative [facility] SARS-CoV-2 (COVID-19) RdRp g braden EBONIE+probe Ql (Resp)on 12-01-2023 Interpretation and review of laboratory results Normal [facility]narrative) [facility] FUNDUS PHOTOGRAPHY-OUon - Right Eye Clear. Disc findings include normal observations. Vessel findings include A/V crossing changes, arteriole narrowing. Macula findings include microaneurysms, dot/blot hemorrhages. Cotton Wool Spots, Dot/Blot Hemorrhages. Interval change is baseline. Left Eye Vitreous Hemorrhage. Interval change is baseline. [facility] (narrative) [facility] No Panel Informationon 08-25 IMPRESSION: Soft tissue swelling. No acute fracture evident. Healed, internally fixated distal fibular fracture with sequela of remote collateral ligamentous trauma at the ankle. OLOGY EXAM: XR FOOT LEFT 3 + VIEWS, XR ANKLE LEFT 3+ VIEWS, XR TIBIA AND FIBULA LEFT 2 VIEWS, 08/26/2023 18:44 PM (accession [id number]), 08/26/2023 18:46 PM (accession [id number]), 08/26/2023 18:46 PM (accession [id number]) COMPARISON: Ankle radiographs dated May 16, 2008 [...] LEFT 2 VIEWS, 08/26/2023 18:44 PM (accession [id number]), 08/26/2023 18:46 PM (accession [id number]), 08/26/2023 18:46 PM (accession [id number]) COMPARISON: Ankle radiographs dated May 16, 2008 [...] ligamentous trauma at the ankle. [facility] No Panel InformationOrdered By: Kwaku Jay on 08-26-2023 [facility] Work Phone: XR Ankle - left 3 [facility] Radiology Study observation (narrative) [facility] XR Foot - left 3 [facility] Radiology Study observation (narrative) [facility] XR Tibia and Fibula - left V [facility] 08-26-2023 Radiology Study observation (narrative) [facility] CBC panel Auto (Bld)on 03-30 Erythrocyte distribution width (RBC) [Entitic vol] 13.2 % 11.6 - 14.8 % [facility] Hematocrit (Bld) [Volume fraction] 32.6 % Low 36.0 - 46.0 % [facility] Hemoglobin (Bld) [Mass/Vol] 10.5 g/dL Low 12.0 - 16.0 g/dL [facility] Interpretation and review of laboratory results Abnormal [facility] MCH (RBC) [Entitic mass] 30.1 pg 26.0 - 34.0 pg [facility] MCHC (RBC) [Mass/Vol] 32.2 g/dL 31.0 - 37.0 g/dL [facility] MCV (RBC) [Entitic vol] 93.4 fL 80.0 - 100.0 fL [facility] Nucleated RBC (Bld) [#/Vol] 0.00 10*3/uL [facility] Nucleated RBC/100 WBC (Bld) [Ratio] 0.0 % [facility] Platelet mean volume (Bld) [Entitic vol] 8.7 fL Low 9.4 - 12.4 fL [facility] Platelets (Bld) [#/Vol] 296 10*3/uL [facility] RBC (Bld) [#/Vol] 3.49 10*6/uL Low [facility] WBC (Bld) [#/Vol] 7.46 10*3/uL [facility] Glucose (Bld) [Mass/Vol]on 05-30-2022 Glucose [Mass/Vol] 232 mg/dL High 65 - 99 mg/dL [facility] Interpretation and review of laboratory results Abnormal [facility] Glucose [Mass/Vol] 306 mg/dL High 65 - 99 mg/dL [facility] Interpretation and review of laboratory results Abnormal [facility] Renal function 2000 panelon 03-30-2023 Albumin [Mass/Vol] 3.2 g/dL 3.2 - 5.2 g/dL [facility] Anion gap [Moles/Vol] 10 mmol/L 10 - 2 0 mmol/L [facility] Calcium [Mass/Vol] 8.7 mg/dL 8.4 - 10. 2 mg/dL [facility] Chloride [Moles/Vol] 106 mmol/L 98 - 10 8 mmol/L [facility] Creatinine [Mass/Vol] 1.29 mg/dL High 0.40 - 1.10 mg/dL [facility] GFR/1.73 sq M.predicted CKD-EPI (S/P/Bld) [Vol rate/Area] 52 Low - PINF [facility] Comment on above: Estimated GFR was ca lculated using the 2020 CKD-EPI creatinine equation. Glucose [Mass/Vol] 338 mg/dL High 65 - 99 mg/dL [facility] HCO3 [Moles/Vol] 25 mmol/L 21 - 32 mmol/L [facility] Interpretation and review of laboratory results Abnormal [facility] Phosphate [Mass/Vol] 3.7 mg/dL 2.7 - 4 .5 mg/dL [facility] Potassium [Moles/Vol] 4.0 mmol/L 3.5 - 5.1 mmol/L [facility] Sodium [Moles/Vol] 137 mmol/L 135 - 145 mmol/L [facility] Urea nitrogen [Mass/Vol] 22 mg/dL 8 - 25 mg/dL [facility] Urea nitrogen/Creatinine [Mass ratio] 17.1 mg/mg 10.0 - 20.0 [facility] has implemented the eGFR calculation approach that does not have a coefficient for race that conforms to the NKF-ASN Task Force Recommendations. [facility] Basic metabolic 2000 panelon 03-29-2023 Anion gap [Moles/Vol] 13 mmol/L 10 - 2 0 mmol/L [facility] Calcium [Mass/Vol] 9.2 mg/dL 8.4 - 10. 2 mg/dL [facility] Chloride [Moles/Vol] 106 mmol/L 98 - 10 8 mmol/L [facility] Creatinine [Mass/Vol] 1.07 mg/dL 0.40 - 1.10 mg/dL [facility] GFR/1.73 sq M.predicted CKD-EPI (S/P/Bld) [Vol rate/Area] 65 - PINF [facility] Comment on above: Estimated GFR was ca lculated using the 2020 CKD-EPI creatinine equation. Glucose [Mass/Vol] 122 mg/dL High 65 - 99 mg/dL [facility] HCO3 [Moles/Vol] 25 mmol/L 21 - 32 mmol/L [facility] Interpretation and review of laboratory results Abnormal [facility] Potassium [Moles/Vol] 3.9 mmol/L 3.5 - 5.1 mmol/L [facility] Sodium [Moles/Vol] 140 mmol/L 135 - 145 mmol/L [facility] Urea nitrogen [Mass/Vol] 15 mg/dL 8 - 25 mg/dL [facility] Urea nitrogen/Creatinine [Mass ratio] 14.0 mg/mg 10.0 - 20.0 [facility] has implemented the eGFR calculation approach that does not have a coefficient for race that conforms to the NKF-ASN Task Force Recommendations. [facility] CBC Auto Differentialon 11-0 Basophils (Bld) [#/Vol] 0.06 10*3/uL [facility] Basophils/100 WBC (Bld) 0.6 % [facility] Eosinophils (Bld) [#/Vol] 0.14 10*3/uL [facility] Eosinophils/100 WBC (Bld) 1.5 % [facility] Erythrocyte distribution width (RBC) [Entitic vol] 13.1 % 11.6 - 14.8 % [facility] Hematocrit (Bld) [Volume fraction] 35.1 % Low 36.0 - 46.0 % [facility] Hemoglobin (Bld) [Mass/Vol] 11.9 g/dL Low 12.0 - 16.0 g/dL [facility] Immature granulocytes (Bld) [#/Vol] 0.05 10*3/uL [facility] Immature granulocytes/100 WBC (Bld) 0.50 % [facility] Comment on above: The IG parameter is the percentage of metamyelocytes, myelocytes and promyelocytes. An immature granulocyte count (IG) of 1% or more suggests the possibility of infection, an IG count of 3% is very likely related to an infection. Interpretation and review of laboratory results Abnormal [facility] Lymphocytes (Bld) [#/Vol] 1.49 10*3/uL [facility] Lymphocytes/100 WBC (Bld) 15.8 % [facility] MCH (RBC) [Entitic mass] 30.5 pg 26.0 - 34.0 pg [facility] MCHC (RBC) [Mass/Vol] 33.9 g/dL 31.0 - 37.0 g/dL [facility] MCV (RBC) [Entitic vol] 90.0 fL 80.0 - 100.0 fL [facility] Monocytes (Bld) [#/Vol] 0.49 10*3/uL [facility] Monocytes/100 WBC (Bld) 5.2 % [facility] Neutrophils (Bld) [#/Vol] 7.21 10*3/uL High [facility] Neutrophils/100 WBC (Bld) 76.4 % [facility] Nucleated RBC (Bld) [#/Vol] 0.00 10*3/uL [facility] Nucleated RBC/100 WBC (Bld) [Ratio] 0.0 % [facility] Platelet mean volume (Bld) [Entitic vol] 8.7 fL Low 9.4 - 12.4 fL [facility] Platelets (Bld) [#/Vol] 306 10*3/uL [facility] RBC (Bld) [#/Vol] 3.90 10*6/uL Low [facility] WBC (Bld) [#/Vol] 9.44 10*3/uL [facility] CT Chest Abdomen Pelvis With out Contraston 03-29-2023 1. Normal caliber of the aorta of without evidence of aneurysm. 2. No acute CT findings of the chest, abdomen or pelvis. 3. Chronic findings as detailed above. Workstation ID: [id number] Coraid EXAMINATION: CT CHEST ABDOMEN PELVIS WITHOUT CONTRAST [...] degenerative changes. Pelvis: No acute osseous abnormality. discoapi [facility] Indra Serna MD - 03/29/2023 EXAMINATION: CT [...] findings as detailed above. Workstation ID: [id number] [facility] Radiology Study observation (narrative) [facility] CT Chest Abdomen Pelvis With out ContrastOrdered By: Indra Serna on 03-29-2023 [facility] Work Phone: EKGon 03-29-2023 [facility] Glucose (Bld) [Mass/Vol]on 1 05-29-2022 Glucose [Mass/Vol] 260 mg/dL High 65 - 99 mg/dL [facility] Interpretation and review of laboratory results Abnormal [facility] Glucose [Mass/Vol] 88 mg/dL 65 - 99 mg/dL [facility] Interpretation and review of laboratory results Normal [facility] HbA1c (Bld) [Mass fraction]o n 03-29-2023 Average glucose Estimated from glycated hemoglobin (Bld) [Mass/Vol] 235 mg/dL High 74 - 114 mg/dL [facility] Interpretation and review of laboratory results Abnormal [facility] Hemoglobin A1con 03-29-2023 HbA1c (Bld) [Mass fraction] 9.8 % High 4.2 - 5.6 % [facility] Hepatic function 2000 panelo n 03-29-2023 Albumin [Mass/Vol] 3.8 g/dL 3.2 - 5.2 g/dL [facility] ALP [Catalytic activity/Vol] 108 U/L 40 - 150 U/L [facility] ALT [Catalytic activity/Vol] 7 U/L 0-35 U/L [facility] AST [Catalytic activity/Vol] 8 U/L 0-35 U/L [facility] Bilirubin [Mass/Vol] 0.3 mg/dL 0.0 - 1 .3 mg/dL [facility] Bilirubin.conjugated [Mass/Vol] mg/dL 0.0 - 0.4 mg/dL [facility] Protein [Mass/Vol] 6.8 g/dL 6.0 - 8.0 g/dL [facility] Lipaseon 03-29-2023 Lipase [Catalytic activity/Vol] 37 U/L 15 - 65 U/L [facility] No Panel Informationon 03-29 Extra Tube Hold for add-ons. [facility] Comment on above: Auto resulted. [facility] Interpretation and review of laboratory results Normal [facility] TSH DL <= 0.005 mIU/L Qnon 1 05-29-2022 Interpretation and review of laboratory results Normal [facility] TSH Qn 2.94 m[IU]/L [facility] TroponinOrdered By: Shy crawford on 03-29-2023 Delta Difference Troponin T -1 ng/L < = -/+ 7 change [facility] Inter Troponin T Delta Change Probable non-acute cardiac injury or late presentation of acute injury. [facility] Troponin T 14 ng/L NINF - 14 ng/L [facility] TroponinOrdered By: Charisse chapa on 03-29-2023 Interpretation and review of laboratory results Abnormal [facility] Troponin T 15 ng/L Critically high NINF - 14 ng/L [facility] Troponin T Interpretation Possible acute cardiac injury. [facility] XR Chest 1 Viewon 03-29-2023 Low lung volumes and small effusion suspected. MA/hb Workstation ID: [id number] Coraid EXAMINATION: XR CHEST PA/AP 03/29/2023 10:34 am [...] present. There is a transvenous defibrillator present. Laura Cowart MD - 03/29/2023 EXAMINATION: XR CHEST PA/AP [...] small effusion suspected. MA/hb Workstation ID: [id number] [facility] Radiology Study observation (narrative) [facility] XR Chest 1 ViewOrdered By: Joel Hodge on 03-29-2023 [facility] Work Phone: Basic metabolic 2000 panelon 02-20-2023 Anion gap [Moles/Vol] 14 mmol/L 10 - 2 0 mmol/L [facility] Calcium [Mass/Vol] 7.8 mg/dL Low 8.4 - 10. 2 mg/dL [facility] Chloride [Moles/Vol] 110 mmol/L High 98 - 10 8 mmol/L [facility] Creatinine [Mass/Vol] 1.19 mg/dL High 0.40 - 1.10 mg/dL [facility] GFR/1.73 sq M.predicted CKD-EPI (S/P/Bld) [Vol rate/Area] 58 Low - PINF [facility] Comment on above: Estimated GFR was ca lculated using the 2020 CKD-EPI creatinine equation. Glucose [Mass/Vol] 227 mg/dL High 65 - 99 mg/dL [facility] HCO3 [Moles/Vol] 20 mmol/L Low 21 - 32 mmol/L [facility] Interpretation and review of laboratory results Abnormal [facility] Potassium [Moles/Vol] 4.6 mmol/L 3.5 - 5.1 mmol/L [facility] Sodium [Moles/Vol] 139 mmol/L 135 - 145 mmol/L [facility] Urea nitrogen [Mass/Vol] 27 mg/dL High 8 - 25 mg/dL [facility] Urea nitrogen/Creatinine [Mass ratio] 22.7 mg/mg High 10.0 - 20.0 [facility] has implemented the eGFR calculation approach that does not have a coefficient for race that conforms to the NKF-ASN Task Force Recommendations. [facility] Glucose (Bld) [Mass/Vol]on 0 02-20-2023 Glucose [Mass/Vol] 187 mg/dL High 65 - 99 mg/dL [facility] Interpretation and review of laboratory results Abnormal [facility] Glucose [Mass/Vol] 257 mg/dL High 65 - 99 mg/dL [facility] Interpretation and review of laboratory results Abnormal [facility] Basic metabolic 2000 panelOr dered By: Jayna Hart on 02-19-2023 Anion gap [Moles/Vol] 15 mmol/L 10 - 2 0 mmol/L [facility] Calcium [Mass/Vol] 8.6 mg/dL 8.4 - 10. 2 mg/dL [facility] Chloride [Moles/Vol] 107 mmol/L 98 - 10 8 mmol/L [facility] Creatinine [Mass/Vol] 2.04 mg/dL High 0.40 - 1.10 mg/dL [facility] GFR/1.73 sq M.predicted CKD-EPI (S/P/Bld) [Vol rate/Area] 30 Low - PINF [facility] Comment on above: Estimated GFR was ca lculated using the 2020 CKD-EPI creatinine equation. Glucose [Mass/Vol] 62 mg/dL Low 65 - 99 mg/dL [facility] HCO3 [Moles/Vol] 20 mmol/L Low 21 - 32 mmol/L [facility] Interpretation and review of laboratory results Abnormal [facility] Potassium [Moles/Vol] 4.3 mmol/L 3.5 - 5.1 mmol/L [facility] Sodium [Moles/Vol] 138 mmol/L 135 - 145 mmol/L [facility] Urea nitrogen [Mass/Vol] 23 mg/dL 8 - 25 mg/dL [facility] Urea nitrogen/Creatinine [Mass ratio] 11.3 mg/mg 10.0 - 20.0 [facility] has implemented the eGFR calculation approach that does not have a coefficient for race that conforms to the NKF-ASN Task Force Recommendations. [facility] CBC panel Auto (Bld)on 02-19 Erythrocyte distribution width (RBC) [Entitic vol] 13.7 % 11.6 - 14.8 % [facility] Hematocrit (Bld) [Volume fraction] 33.9 % Low 36.0 - 46.0 % [facility] Hemoglobin (Bld) [Mass/Vol] 11.4 g/dL Low 12.0 - 16.0 g/dL [facility] Interpretation and review of laboratory results Abnormal [facility] MCH (RBC) [Entitic mass] 30.2 pg 26.0 - 34.0 pg [facility] MCHC (RBC) [Mass/Vol] 33.6 g/dL 31.0 - 37.0 g/dL [facility] MCV (RBC) [Entitic vol] 89.7 fL 80.0 - 100.0 fL [facility] Nucleated RBC (Bld) [#/Vol] 0.00 10*3/uL [facility] Nucleated RBC/100 WBC (Bld) [Ratio] 0.0 % [facility] Platelet mean volume (Bld) [Entitic vol] 9.4 fL 9.4 - 12.4 fL [facility] Platelets (Bld) [#/Vol] 304 10*3/uL [facility] RBC (Bld) [#/Vol] 3.78 10*6/uL Low [facility] WBC (Bld) [#/Vol] 8.21 10*3/uL [facility] Echocardiogram completeOrder ed By: Yan Jones on 02-19-2023 Aortic valve area 3.88543 cm [facility] Work Phone: AV mean gradient 3.80929 mmHg [facility] Work Phone: AV peak gradient 5.35662 mmHg [facility] Work Phone: EF 49.5637 % [facility] Work Phone: [facility] Work Phone: Echocardiogram completeon Patient Info Name: ADDIE ORGAN Age: 47 years : 1975 Gender: Female Ht: 157 cm Wt: 114 kg BSA: 2.30 m2 BP: 82 / 62 mmHg Technical Quality: Fair Exam Date: 02/18/2023 6:42 PM Patient Status: Inpatient Events Traffic Controller: Babs Barnes RDCS Exam Type: ECHOCARDIOGRAM COMPLETE Study Info Indications - Chest pain - Evaluate LV function Attending Physician: [facility] [place] Referring Physician: [id number] Mckeon; [id number] BMI: 45.91 kg/m2 Summary 1. Normal LV [...] Peak Gradient 3 mmHg PV Regurgitation Doppler [place] Peak Velocity 111.88 cm/s [place] Peak Gradient 5 mmHg Mitral Valve Name Value Normal MV Doppler (more content not included)... FUJI SYNAPSE CV Yan Jones MD - 02/19/2023 Patient Info Name: ADDIE ORGAN Age: 47 years : 1975 Gender: Female Ht: 157 cm Wt: 114 kg BSA: 2.30 m2 BP: 82 / 62 mmHg Technical Quality: Fair Exam Date: 02/18/2023 6:42 PM Patient Status: Inpatient Events Traffic Controller: Rocky, Babs, RDCS Exam Type: ECHOCARDIOGRAM COMPLETE Study Info Indications - Chest pain - Evaluate LV function Attending Physician: [facility] Referring Physician: [id number] Dinh; [id number] BMI: 45.91 kg/m2 Summary 1. Normal LV [...] Peak Gradient 3 mmHg PV Regurgitation Doppler AZ Peak Velocity 111.88 cm/s [place] Peak Gradient 5 mmHg Mitral Valve Name Value Normal MV Doppler MV Decel [place] 375 cm/s2 MV PHT 77 ms MV Area (PHT) 2.9 cm2 4.0-5.0 MV Diastolic Function MV E Peak Velocity 0.99 m/s MV A Peak Velocity 0.91 m/s MV E/A 1.1 MV Decel Time 265 ms MV Annular TDI MV Septal e' Velocity 8.2 cm/s >=8.0 MV E/e' (Septal) 12.1 <=8.0 MV Lateral e' Velo (more content not included)... [facility] Glucose (Bld) [Mass/Vol]on 0 02-19-2023 Glucose [Mass/Vol] 332 mg/dL High 65 - 99 mg/dL [facility] Interpretation and review of laboratory results Abnormal [facility] Glucose [Mass/Vol] 267 mg/dL High 65 - 99 mg/dL [facility] Interpretation and review of laboratory results Abnormal [facility] Glucose [Mass/Vol] 162 mg/dL High 65 - 99 mg/dL [facility] Interpretation and review of laboratory results Abnormal [facility] Glucose [Mass/Vol] 63 mg/dL Low 65 - 99 mg/dL [facility] Interpretation and review of laboratory results Abnormal [facility] Glucose [Mass/Vol] 80 mg/dL 65 - 99 mg/dL [facility] Interpretation and review of laboratory results Normal [facility] Lactate [Moles/Vol]on 2022 Interpretation and review of laboratory results Normal [facility] Lactic Acid, Plasmaon 2022 Lactate [Moles/Vol] 1.7 mmol/L 0.6 - 2. 0 mmol/L [facility] Troponin x 2 (Now and Repeat in 3 hours)on 02-19-2023 Interpretation and review of laboratory results Abnormal [facility] Troponin T 33 ng/L Critically high NINF - 14 ng/L [facility] Troponin T Interpretation Possible acute cardiac injury. [facility] Basic metabolic 2000 panelon 02-18-2023 Anion gap [Moles/Vol] 15 mmol/L 10 - 2 0 mmol/L [facility] Calcium [Mass/Vol] 8.9 mg/dL 8.4 - 10. 2 mg/dL [facility] Chloride [Moles/Vol] 105 mmol/L 98 - 10 8 mmol/L [facility] Creatinine [Mass/Vol] 0.99 mg/dL 0.40 - 1.10 mg/dL [facility] GFR/1.73 sq M.predicted CKD-EPI (S/P/Bld) [Vol rate/Area] 72 - PINF [facility] Comment on above: Estimated GFR was ca lculated using the 2020 CKD-EPI creatinine equation. Glucose [Mass/Vol] 144 mg/dL High 65 - 99 mg/dL [facility] HCO3 [Moles/Vol] 23 mmol/L 21 - 32 mmol/L [facility] Interpretation and review of laboratory results Abnormal [facility] Potassium [Moles/Vol] 3.8 mmol/L 3.5 - 5.1 mmol/L [facility] Sodium [Moles/Vol] 139 mmol/L 135 - 145 mmol/L [facility] Urea nitrogen [Mass/Vol] 15 mg/dL 8 - 25 mg/dL [facility] Urea nitrogen/Creatinine [Mass ratio] 15.2 mg/mg 10.0 - 20.0 [facility] has implemented the eGFR calculation approach that does not have a coefficient for race that conforms to the NKF-ASN Task Force Recommendations. [facility] CBC Auto Differentialon 01-24 Basophils (Bld) [#/Vol] 0.05 10*3/uL [facility] Basophils/100 WBC (Bld) 0.6 % [facility] Eosinophils (Bld) [#/Vol] 0.21 10*3/uL [facility] Eosinophils/100 WBC (Bld) 2.4 % [facility] Erythrocyte distribution width (RBC) [Entitic vol] 13.0 % 11.6 - 14.8 % [facility] Hematocrit (Bld) [Volume fraction] 36.9 % 36.0 - 46.0 % [facility] Hemoglobin (Bld) [Mass/Vol] 12.3 g/dL 12.0 - 16.0 g/dL [facility] Immature granulocytes (Bld) [#/Vol] 0.04 10*3/uL [facility] Immature granulocytes/100 WBC (Bld) 0.50 % [facility] Comment on above: The IG parameter is the percentage of metamyelocytes, myelocytes and promyelocytes. An immature granulocyte count (IG) of 1% or more suggests the possibility of infection, an IG count of 3% is very likely related to an infection. Lymphocytes (Bld) [#/Vol] 2.80 10*3/uL [facility] Lymphocytes/100 WBC (Bld) 32.6 % [facility] MCH (RBC) [Entitic mass] 29.4 pg 26.0 - 34.0 pg [facility] MCHC (RBC) [Mass/Vol] 33.3 g/dL 31.0 - 37.0 g/dL [facility] MCV (RBC) [Entitic vol] 88.1 fL 80.0 - 100.0 fL [facility] Monocytes (Bld) [#/Vol] 0.45 10*3/uL [facility] Monocytes/100 WBC (Bld) 5.2 % [facility] Neutrophils (Bld) [#/Vol] 5.03 10*3/uL [facility] Neutrophils/100 WBC (Bld) 58.7 % [facility] Nucleated RBC (Bld) [#/Vol] 0.00 10*3/uL [facility] Nucleated RBC/100 WBC (Bld) [Ratio] 0.0 % [facility] Platelet mean volume (Bld) [Entitic vol] 9.5 fL 9.4 - 12.4 fL [facility] Platelets (Bld) [#/Vol] 312 10*3/uL [facility] RBC (Bld) [#/Vol] 4.19 10*6/uL [facility] WBC (Bld) [#/Vol] 8.58 10*3/uL [facility] EKGon 02-18-2023 [facility] Echocardiogram completeon Radiology Study observation (narrative) [facility] Glucose (Bld) [Mass/Vol]on 0 02-18-2023 Glucose [Mass/Vol] 204 mg/dL High 65 - 99 mg/dL [facility] Interpretation and review of laboratory results Abnormal [facility] Glucose [Mass/Vol] 401 mg/dL Critically high 65 - 9 9 mg/dL [facility] Interpretation and review of laboratory results Abnormal [facility] Critical result acte d upon time of test. Test performed at bedside. [facility] Glucose [Mass/Vol] 336 mg/dL High 65 - 99 mg/dL [facility] Interpretation and review of laboratory results Abnormal [facility] Glucose [Mass/Vol] 118 mg/dL High 65 - 99 mg/dL [facility] Interpretation and review of laboratory results Abnormal [facility] Glucose [Mass/Vol] 183 mg/dL High 65 - 99 mg/dL [facility] Interpretation and review of laboratory results Abnormal [facility] NM Myocardial Perfusion Mult iple SPECTOrdered By: Inessa Rao on 02-18-2023 LV Stress Diastolic Volume 51 ml [facility] Work Phone: LV Stress Systolic Volume 7 ml [facility] Work Phone: Stress Nuc Stress EF 86 % [facility] Work Phone: [facility] Work Phone: NM Myocardial Perfusion Mult iple SPECTon 02-18-2023 Patient Info Name: ADDIE ORGAN Age: 47 years : 1975 Gender: Female Ht: 157 cm Wt: 114 kg BSA: 2.30 m2 Exam Date: 02/18/2023 8:50 AM Patient Status: Inpatient Clearance Diver: Aravind Wright, ROGELIO, Davide Mims, RT (N), Hayden Mendieta R.T.(N), ROGELIO Exam Type: NM MYOCARDIAL PERFUSION MULTI SPECT Study Info Indications - Chest pain/anginal equiv, high CAD risk, not treadmill candidate Attending Physician: [facility] Nuclear Physician: Inessa Rao MD [id number] Primary Nurse: Sandra Sweeney RN Secondary Nurse: [...] size is normal. Radiopharmaceutical: Tc-99m Camera Used: [employer] Radiopharmaceutical: Tc-99m Camera Used: [employer] Image Protocol Protocol: Rest/Stress 1 Day Rest [...] Date: 02/18/2023 8:50 AM Patient Status: Inpatient Clearance Diver: Aravind Wright, ROGELIO, Davide Mims, RT (N), Hayden Mendieta R.T.(N), ROGELIO Exam Type: NM MYOCARDIAL PERFUSION MULTI SPECT Study Info Indications - Chest pain/anginal equiv, high CAD risk, not treadmill candidate Attending Physician: [facility] Nuclear Physician: Inessa Rao MD [phone] Primary Nurse: Sandra Sweeney RN Secondary Nurse: [...] size is normal. Radiopharmaceutical: Tc-99m Camera Used: [employer] Radiopharmaceutical: Tc-99m Camera Used: [employer]SPECT Image Protocol Protocol: Rest/Stress 1 Day Rest [...] perfusion imaging study (more content not included)... [facility] Radiology Study observation (narrative) [facility] TroponinOrdered By: Robin chauhan on 02-18-2023 Delta Difference Troponin T -1 ng/L < = -/+ 7 change [facility] Interp Troponin T Delta Change Probable non-acute cardiac injury or late presentation of acute injury. [facility] Interpretation and review of laboratory results Abnormal [facility] Troponin T 19 ng/L Critically high NINF - 14 ng/L [facility] Troponinon 02-18-2023 Interp Troponin T Delta Change Delta troponin requires at least 3 hours between collections. [facility] Interpretation and review of laboratory results Abnormal [facility] Troponin T 18 ng/L Critically high NINF - 14 ng/L [facility] Troponin x 2 (Now and Repeat in 3 hours)on 02-18-2023 Delta Difference Troponin T -2 ng/L < = -/+ 7 change [facility] Interp Troponin T Delta Change Probable non-acute cardiac injury or late presentation of acute injury. [facility] Interpretation and review of laboratory results Abnormal [facility] Troponin T 18 ng/L Critically high NINF - 14 ng/L [facility] CBC Auto Differentialon 01-24 Basophils (Bld) [#/Vol] 0.07 10*3/uL [facility] Basophils/100 WBC (Bld) 0.8 % [facility] Eosinophils (Bld) [#/Vol] 0.21 10*3/uL [facility] Eosinophils/100 WBC (Bld) 2.4 % [facility] Erythrocyte distribution width (RBC) [Entitic vol] 13.0 % 11.6 - 14.8 % [facility] Hematocrit (Bld) [Volume fraction] 37.9 % 36.0 - 46.0 % [facility] Hemoglobin (Bld) [Mass/Vol] 12.8 g/dL 12.0 - 16.0 g/dL [facility] Immature granulocytes (Bld) [#/Vol] 0.04 10*3/uL [facility] Immature granulocytes/100 WBC (Bld) 0.50 % [facility] Comment on above: The IG parameter is the percentage of metamyelocytes, myelocytes and promyelocytes. An immature granulocyte count (IG) of 1% or more suggests the possibility of infection, an IG count of 3% is very likely related to an infection. Lymphocytes (Bld) [#/Vol] 2.28 10*3/uL [facility] Lymphocytes/100 WBC (Bld) 25.9 % [facility] MCH (RBC) [Entitic mass] 29.6 pg 26.0 - 34.0 pg [facility] MCHC (RBC) [Mass/Vol] 33.8 g/dL 31.0 - 37.0 g/dL [facility] MCV (RBC) [Entitic vol] 87.5 fL 80.0 - 100.0 fL [facility] Monocytes (Bld) [#/Vol] 0.46 10*3/uL [facility] Monocytes/100 WBC (Bld) 5.2 % [facility] Neutrophils (Bld) [#/Vol] 5.76 10*3/uL [facility] Neutrophils/100 WBC (Bld) 65.2 % [facility] Nucleated RBC (Bld) [#/Vol] 0.00 10*3/uL [facility] Nucleated RBC/100 WBC (Bld) [Ratio] 0.0 % [facility] Platelet mean volume (Bld) [Entitic vol] 9.4 fL 9.4 - 12.4 fL [facility] Platelets (Bld) [#/Vol] 318 10*3/uL [facility] RBC (Bld) [#/Vol] 4.33 10*6/uL [facility] WBC (Bld) [#/Vol] 8.82 10*3/uL [facility] CT Chest Abdomen Pelvis With out Contraston 02-17-2023 1. No acute findings in the chest, abdomen, or pelvis. 2. Chronic and incidental findings as above. [employer] Workstation ID: [id number] Coraid EXAMINATION: CT CHEST ABDOMEN PELVIS WITHOUT CONTRAST [...] Musculoskeletal: No acute or suspicious osseous findings. discoapi [facility] Bridger Webb MD - 02/17/2023 EXAMINATION: CT [...] findings as above. DEEPA/mkv Workstation ID: [id number] [facility] Radiology Study observation (narrative) [facility] CT Chest Abdomen Pelvis With out ContrastOrdered By: Bridger Webb on 02-17-2023 [facility] Work Phone: CT Head Or Brain Without Con traston 02-17-2023 1. No acute intracranial abnormality. Workstation ID: [id number] Coraid EXAMINATION: CT OF THE BRAIN. HISTORY: dizziness COMPARISON: Head CT most recently 06/11/2022 at [place] TECHNIQUE: Axial CT images were acquired from [...] Ventricles and cisternal spaces are age appropriate. discoapi [facility] Andrew Martin MD - 02/17/2023 EXAMINATION: CT OF THE BRAIN. HISTORY: dizziness COMPARISON: Head CT most recently 06/11/2022 at [place] TECHNIQUE: Axial CT images were acquired from [...] No acute intracranial abnormality. Workstation ID: [id number] [facility] Radiology Study observation (narrative) [facility] CT Head Or Brain Without Con trastOrdered By: Andrew Martin on 02-17-2023 [facility] Work Phone: Comprehensive metabolic 2000 panelon 02-17-2023 Albumin [Mass/Vol] 3.8 g/dL 3.2 - 5.2 g/dL [facility] ALP [Catalytic activity/Vol] 134 U/L 40 - 150 U/L [facility] ALT [Catalytic activity/Vol] 8 U/L 0-35 U/L [facility] Anion gap [Moles/Vol] 15 mmol/L 10 - 2 0 mmol/L [facility] AST [Catalytic activity/Vol] 9 U/L 0-35 U/L [facility] Bilirubin [Mass/Vol] 0.3 mg/dL 0.0 - 1 .3 mg/dL [facility] Calcium [Mass/Vol] 9.2 mg/dL 8.4 - 10. 2 mg/dL [facility] Chloride [Moles/Vol] 101 mmol/L 98 - 10 8 mmol/L [facility] Creatinine [Mass/Vol] 1.00 mg/dL 0.40 - 1.10 mg/dL [facility] GFR/1.73 sq M.predicted CKD-EPI (S/P/Bld) [Vol rate/Area] 71 - PINF [facility] Comment on above: Estimated GFR was ca lculated using the 2020 CKD-EPI creatinine equation. Glucose [Mass/Vol] 347 mg/dL High 65 - 99 mg/dL [facility] HCO3 [Moles/Vol] 23 mmol/L 21 - 32 mmol/L [facility] Interpretation and review of laboratory results Abnormal [facility] Potassium [Moles/Vol] 4.3 mmol/L 3.5 - 5.1 mmol/L [facility] Protein [Mass/Vol] 6.7 g/dL 6.0 - 8.0 g/dL [facility] Sodium [Moles/Vol] 135 mmol/L 135 - 145 mmol/L [facility] Urea nitrogen [Mass/Vol] 14 mg/dL 8 - 25 mg/dL [facility] Urea nitrogen/Creatinine [Mass ratio] 14.0 mg/mg 10.0 - 20.0 [facility] has implemented the eGFR calculation approach that does not have a coefficient for race that conforms to the NKF-ASN Task Force Recommendations. [facility] ECG 12 Leadon 02-17-2023 Interpretation and review of laboratory results Abnormal [facility] Hayde Pickering DO 02/18/2023 12:40 AM ECG 12 Lead Date/Time: 02/17/2023 9:36 PM Performed by: Hayde Pickering DO Authorized by: Hayde Pickering DO Interpreted by ED attending physician Comparison: compared with previous ECG Rhythm: sinus rhythm BPM: 96 Other findings: LELA Clinical impression: abnormal ECG MUSE [facility] Lipaseon 02-17-2023 Lipase [Catalytic activity/Vol] 35 U/L 15 - 65 U/L [facility] Lipase [Catalytic activity/V ol]on 02-17-2023 Interpretation and review of laboratory results Normal [facility] No Panel Informationon 02-17 Extra Tube Hold for add-ons. [facility] Comment on above: Auto resulted. [facility] Troponin x 2 (Now and Repeat in 3 hours)Ordered By: Zainab Echeverria on 02-17-2023 Interpretation and review of laboratory results Abnormal [facility] Troponin T 20 ng/L Critically high NINF - 14 ng/L [facility] Troponin T Interpretation Possible acute cardiac injury. [facility] UrinalysisOrdered By: Jessie Bae on 02-17-2023 Bacteria Auto Ql (U) None Seen None Se en /hpf [facility] Bilirubin Ql (U) Negative Negative [facility] th Clarity Refractometry automated (U) Hazy Abnormal Clear [facility] Color (U) Yellow Colorless, Yellow [facility] Epithelial cells.squamous Auto (Urine sed) [#/Area] 3 [facility] Glucose Auto test strip (U) [Mass/Vol] >=500 Abnormal Negative mg/dL [facility] Hemoglobin Auto test strip Ql (U) Small Abnormal Negative [facility] Hyaline casts Auto (Urine sed) [#/Area] 3-5 Abnormal [facility] Interpretation and review of laboratory results Abnormal [facility] Ketones (U) [Mass/Vol] Negative Negative mg/dL [facility] Leukocyte clumps Auto (Urine sed) [#/Area] Rare Abnormal None Seen /hpf [facility] Leukocyte esterase Auto test strip Ql (U) Negative Negative [facility] Mucus Auto (Urine sed) [#/Area] Rare None Seen, Rare /lpf [facility] Nitrite Auto test strip Ql (U) Negative Negative [facility] pH (U) 5.0 [pH] 5.0 - 7.0 [facility] Protein (U) [Mass/Vol] 100 mg/dL Abnormal Negative [facility] RBC Auto (Urine sed) [#/Area] 2 [facility] Specific gravity (U) [Rel density] 1.025 1.005 - 1.025 [facility] Urobilinogen (U) [Mass/Vol] mg/dL NINF - 2.0 mg/dL [facility] WBC Auto (Urine sed) [#/Area] 11 High [facility] Microscopic examinat ion is performed on all urinalysis samples and only positive findings are reported. The test for blood on the chemical analytic portion of urinalysis may also be positive due to hemoglobinuria and myoglobinuria and if red blood cells are present they are quantified by microscopic examination. [facility] XR Chest 1 Viewon 02-17-2023 Low lung volumes with bronchovascular crowding. No airspace consolidation. Workstation ID: [id number] [facility] EXAMINATION: XR CHEST PA/AP HISTORY: ORDERING SYSTEM [...] superior vena cava. Left-sided pacemaker device noted. [facility] Elvis Mae M D - 02/17/2023 EXAMINATION: [...] crowding. No airspace consolidation. Workstation ID: [id number] [facility] Radiology Study observation (narrative) [facility] XR Chest 1 ViewOrdered By: Bud Mae on 02-17-2023 [facility] Work Phone: CBC AUTO DIFFon 10-22-2022 BASO # 0.1 103/ul Normal 0.0-0.1 [facility] Comment on above: Performed By: #### C BC ####[facility] [address]af[address] [place], [place] [address]Dr. Devin Suresh Basophils/100 WBC (Bld) 0.6 % Normal 0.2-2.0 [facility] Comment on above: Performed By: #### C BC ####[facility] Fpcejvgrdu[address] [place], [place] [address]Dr. Devin Suresh EO # 0.2 103/ul Normal 0.0-0.7 [facility] Comment on above: Performed By: #### C BC ####[facility] Ukwygrvdee[address] [place], [place] [address]Dr. Devin Suresh Eosinophils/100 WBC (Bld) 1.8 % Normal 0.9-7.0 [facility] Comment on above: Performed By: #### C BC ####[facility] Jdihoqepmo[address] [place], [place] [address]Dr. Devin Surehs Erythrocyte distribution width (RBC) [Ratio] 12.0 % Normal 11.0-15.0 [facility] Comment on above: Performed By: #### C BC ####[facility] Hjwppzwlvk[address] [place], [place] [address]Dr. Devin Suresh Hematocrit (Bld) [Volume fraction] 28.3 % Critically low 36.0-48.0 [facility] Comment on above: Performed By: #### C BC ####[facility] Mwxwdaidzo74[address] [place] [address]Dr. Devin Suresh Hemoglobin (Bld) [Mass/Vol] 9.5 g/dL Critically low 12.0-16.0 [facility] Comment on above: Performed By: #### C BC ####[facility] Umjkpmhpbh19[address] [place] [address]Dr. Tishemily Kerwin IG # 0.05 10e3/ul Critically high 0.00-0.03 [facility] Comment on above: Performed By: #### C BC ####[facility] Qmqhiygvuu6635 [place] [address]Dr. Devin Suresh IG % 0.6 % Critically high 0.0-0.5 [facility] Comment on above: Performed By: #### C BC ####[facility] Xzjjvmccsn4315 [place] [address]Dr. Devin Suresh LYMPH # 1.9 103/ul Normal 1.2-3.8 [facility] Comment on above: Performed By: #### C BC ####[facility] Bfskiadmtu8331 [place] [address]Dr. Devin Suresh Lymphocytes/100 WBC (Bld) 20.4 % Critically low 20.5-60.0 [facility] Comment on above: Performed By: #### C BC ####[facility] Wdquuennrd8509 [place] [address]Dr. Tishemily Suresh MANUAL DIFF REQ NO Normal [facility] Comment on above: Performed By: #### C BC ####[facility] Npkpsabbnd6987 [place] [address]Dr. Devin Kerwin MCH (RBC) [Entitic mass] 30.6 pg Normal 26.7-34.0 [facility] Comment on above: Performed By: #### C BC ####[facility] Meiwawasqk01[address] [place] [address]Dr. Devin Suresh MCHC (RBC) [Mass/Vol] 33.6 g/dL Normal 29.9-35.2 [facility] Comment on above: Performed By: #### C BC ####[facility] Qpvrkhekko8018 [place] [phone]. Devin Kerwin MCV (RBC) [Entitic vol] 91.3 fL Normal 81.0-99.0 [facility] Comment on above: Performed By: #### C BC ####[facility] Bbbwyrrdqm5376 [place] [address]Dr. Devin Kerwin MONO # 0.6 103/ul Normal 0.3-0.8 [facility] Comment on above: Performed By: #### C BC ####[facility] Sbfervtiuv7605 [place] [address]Dr. Devin Suresh Monocytes/100 WBC (Bld) 7.1 % Normal 1.7-12.0 [facility] Comment on above: Performed By: #### C BC ####[facility] Etxuvuvgbm[address] [place], [place] [address]Dr. Tishemily Kerwin NEUT # 6.3 103/ul Normal 1.4-6.5 [facility] Comment on above: Performed By: #### C BC ####[facility] Paehkelplq2790 [place] [address]Dr. Tishemily Suresh Neutrophils/100 WBC (Bld) 69.5 % Normal 43.0-75.0 [facility] Comment on above: Performed By: #### C BC ####[facility] Lpqjuenxdz1542 [place] [address]Dr. Tishemily Suresh Platelet mean volume (Bld) [Entitic vol] 9.5 fL Normal 9.5-13.5 [facility] Comment on above: Performed By: #### C BC ####[facility] Phuwxdmgpc6906 [place] [address]Dr. Devin Suresh PLT 309 103/ul Normal 150-450 [facility] Comment on above: Performed By: #### C BC ####[facility] Mfzthycnva7982 [place] [address]Dr. Devin Suresh RBC 3.10 106/ul Critically low 4.20-5.40 [facility] Comment on above: Performed By: #### C BC ####[facility] Acgxcnlbyq2456 [place] [phone]. Devin Suresh WBC 9.1 103/ul Normal 4.0-11.0 [facility] Comment on above: Performed By: #### C BC ####[facility] Umqbheziwk5408 [place] [phone]. Devin Suresh CT FOOT RT WO CONon 10-23-19 CT FOOT RT WO CON Normal [facility] DRUG SCREEN RAPID (URINE)on 10-22-2022 AMP Negative Normal NEGATIVE [facility] Comment on above: Performed By: #### D RUGRPD ####[facility] Yslvsdeaid0755 [place] [address]Dr. Devin Suresh BAR Negative Normal NEGATIVE [facility] Comment on above: Performed By: #### D RUGRPD ####[facility] Ouocltqzoa8485 [place] [address]Dr. Devin Suresh BUP Negative Normal NEGATIVE [facility] Comment on above: Performed By: #### D RUGRPD ####[facility] Ldxtmkwiho7441 [place] [address]Dr. Devin Suresh BZO Negative Normal NEGATIVE [facility] Comment on above: Performed By: #### D RUGRPD ####[facility] Qqzsxfdvvj9512 [place] [address]Dr. Devin Suresh KATHY Negative Normal NEGATIVE [facility] Comment on above: Performed By: #### D RUGRPD ####[facility] Aspqgsmjrw9654 [place] [address]Dr. Devin Suresh CUT-OFFS SEE BELOW Normal [facility] Comment on above: Result Comment: AMP (Amphetamine): 500ng/mL, BAR (Barbituates): 200 ng/mL, BZO (Benzodiazepines): 150 ng/mL, BUP (Buprenorphine): 10 ng/mL, KATHY (Cocaine): 150 ng/mL, mAMP (Methamphetamine): 500 ng/mL, MTD (Methadone): 200 ng/mL, OPI (Opiates): 100 ng/mL, OXY (Oxycodone): 100 ng/mL, PCP (Phencyclidine): 25 ng/mL, PPX (Propoxyphene): 300 ng/mL, THC (Cannabinoids): 50 ng/mL, TCA (Trycyclic Antidepressants): 300 ng/mL Performed By: #### D RUGRPD ####[facility] Qxdclehqdm[address] [place], [place] [address]Dr. Devin Suresh DRUG CUT HEADER DRUG CLASS TEST SYST EM CUT-OFF CONCENTRATIONS ARE FOLLOWS: Normal [facility] Comment on above: Performed By: #### D RUGRPD ####[facility] Pnguetqiyk06[address] [place], [place] [address]Dr. Devin Suresh mAMP Negative Normal NEGATIVE [facility] Comment on above: Performed By: #### D RUGRPD ####[facility] Zqukjoqvoi6[address] [place], [place] [address]Dr. Devin Suresh MTD Negative Normal NEGATIVE [facility] Comment on above: Performed By: #### D RUGRPD ####[facility] Aubzaekquf7[address] [place], [place] [address]Dr. Devin Suresh OPI Negative Normal NEGATIVE [facility] Comment on above: Performed By: #### D RUGRPD ####[facility] Pfhnsozimn7[address] [place], [place] [address]Dr. Devin Suresh OXY Negative Normal NEGATIVE [facility] Comment on above: Performed By: #### D RUGRPD ####[facility] Hisciezvwm[address] [place], [place] [address]Dr. Devin Suresh PCP Negative Normal NEGATIVE [facility] Comment on above: Performed By: #### D RUGRPD ####[facility] Plgouedjld[address] [place], [place] [address]Dr. Devin Suresh PPX Negative Normal NEGATIVE [facility] Comment on above: Performed By: #### D RUGRPD ####[facility] Veeaqvahvd[address] [place], [place] [address]Dr. Devin Suresh TCA Positive Abnormal NEGATIVE [facility] Comment on above: Performed By: #### D RUGRPD ####[facility] Buvinzmkmk4091 [place] [phone]. Devin Suresh THC Negative Normal NEGATIVE [facility] Comment on above: Performed By: #### D RUGRPD ####[facility] Skeydguyzq8566 [place] [phone]. Devin Suresh POINT OF CARE GLUCOSEon 09-24 Glucose [Mass/Vol] 400 mg/dL Critically high [address] [place] [address] Comment on above: Performed By: #### P OCGLUC ####[facility] Aexwypxahk6271 [place] [address]Dr. Devin Suresh Glucose [Mass/Vol] 284 mg/dL Critically high [address] [place] [address] Comment on above: Performed By: #### P OCGLUC ####[facility] Zbhkfxrang1482 [place] [address]Dr. Devin Kerwin Glucose [Mass/Vol] 161 mg/dL Critically high [address] [place] [address] Comment on above: Performed By: #### P OCGLUC ####[facility] Wpqgqpfeok7635 [place] [address]Dr. Devin Suresh Glucose [Mass/Vol] 283 mg/dL Critically high [address] [place] [address] Comment on above: Performed By: #### P OCGLUC ####[facility] Daiblhfubt1304 [place] [address]Dr. Devin Suresh Glucose [Mass/Vol] 316 mg/dL Critically high [address] [place] [address] Comment on above: Performed By: #### P OCGLUC ####[facility] Duirkjnqss4574 [place] [address]Dr. Devin Suresh PROF 14(COMP METB)on 023 Albumin [Mass/Vol] 2.4 g/dL Critically low 3.4-5.0 [facility] Comment on above: Performed By: #### C MP ####[facility] Ppfcgiyyvu6584 [place] [address]Dr. Tishemily Kerwin Albumin/Globulin [Mass ratio] 0.6 {ratio} Normal [facility] Comment on above: Performed By: #### C MP ####[facility] Zjcbdiwyin3392 [place] [address]Dr. Devin Suresh ALP [Catalytic activity/Vol] 115 U/L Normal 46-[address] [facility] Comment on above: Performed By: #### C MP ####[facility] Oxyxbgdihk6587 [place] [address]Dr. Devin Suresh ALT [Catalytic activity/Vol] 17 U/L Normal 14-[address] [facility] Comment on above: Performed By: #### C MP ####[facility] B[address]awavhwtv[address] [place], [place] [address]Dr. Devin Suresh Anion gap [Moles/Vol] 12.2 mmol/L Normal [facility] Comment on above: Performed By: #### C MP ####[facility] Ahajlyeuxh[address] [place], [place] [address]Dr. Devin Suresh AST [Catalytic activity/Vol] 15 U/L Normal 15-[address] [facility] Comment on above: Performed By: #### C MP ####[facility] Aiudkuitbo[address] [place], [place] [address]Dr. Devin Suresh Bilirubin [Mass/Vol] 0.3 mg/dL Normal 0.2-1.[address] [facility] Comment on above: Performed By: #### C MP ####[facility] Plvtsrqkzz5[address] [place], [place] [address]Dr. Devin Suresh Calcium [Mass/Vol] 8.6 mg/dL Normal 8.5-10.1 [facility] Comment on above: Performed By: #### C MP ####[facility] Rabvlyuiot7[address] [place], [place] [address]Dr. Devin Suresh Chloride [Moles/Vol] 104 mmol/L Normal 98-[address] [facility] Comment on above: Performed By: #### C MP ####[facility] Aswimvwvat[address] [place], [place] [address]Dr. Devin Suresh CO2 [Moles/Vol] 25.7 mmol/L Normal 21.0-32.0 [facility] Comment on above: Performed By: #### C MP ####[facility] Qshxqgyonf0518 [place] [phone]. Devin Suresh Creatinine [Mass/Vol] 1.17 mg/dL Critically high 0.55-1.[address] [facility] Comment on above: Performed By: #### C MP ####[facility] Dgngxsphhh5748 [place] [phone]. Devin Suresh EGFR-AF ARMENIAN >60 Normal >=60 [facility] Comment on above: Performed By: #### C MP ####[facility] Rvkxdxybop6779 [place] [phone]. Devin Suresh EGFR-NON AF ARMENIAN 50 mL/min/1.73m2 Critically low >=[address] [facility] Comment on above: Performed By: #### C MP ####[facility] Hpkkhczvva6355 [place] [address]Dr. Devin Suresh Globulin (S) [Mass/Vol] 4.1 g/dL Normal [facility] Comment on above: Performed By: #### C MP ####[facility] Tyecvkibtv9405 [place] [phone]. Devin Suresh Glucose [Mass/Vol] 262 mg/dL Critically high 74-106 [facility] Comment on above: Performed By: #### C MP ####[facility] Lonsxxmmpv6284 [place] [phone]. Devin Suresh Potassium [Moles/Vol] 3.9 mmol/L Normal 3.5-5.1 [facility] Comment on above: Performed By: #### C MP ####[facility] Idhqycxych9239 [place] [phone]. Devin Suresh Protein [Mass/Vol] 6.5 g/dL Normal 6.4-8.2 [facility] Comment on above: Performed By: #### C MP ####[facility] Vwhyhbbbde7985 [place] [phone]. Devin Suresh Sodium [Moles/Vol] 138 mmol/L Normal 136-145 [facility] Comment on above: Performed By: #### C MP ####[facility] Kztkspgojk0918 [place] [phone]. Devin Suresh Urea nitrogen [Mass/Vol] 23.0 mg/dL Critically high 7.0-18.0 [facility] Comment on above: Performed By: #### C MP ####[facility] Kznrujuagq0771 [place] [phone]. Devin Suresh Urea nitrogen/Creatinine [Mass ratio] 19.7 mg/mg Normal [facility] Comment on above: Performed By: #### C MP ####[facility] Qwbshnipea[address] [place], [place] [id number]. Devin Suresh ACETONE SERUMon 10-21-2022 ACETONE Negative Normal NEGATIVE [facility] Comment on above: Performed By: #### A CETON ####[facility] Rxscmlqczf[address] [place], [place] [address]Dr. Devin Suresh CBC AUTO DIFFon 10-21-2022 BASO # 0.1 103/ul Normal 0.0-0.[address] [facility] Comment on above: Performed By: #### C BC ####[facility] Spsnrhbnhe[address] [place], [place] [address]Dr. Devin Suresh Basophils/100 WBC (Bld) 0.4 % Normal 0.2-2.0 [facility] Comment on above: Performed By: #### C BC ####[facility] Aywjkkmqri6474[address] [place], [place] [address]Dr. Devin Suresh EO # 0.2 103/ul Normal 0.0-0.7 [facility] Comment on above: Performed By: #### C BC ####[facility] Inzcqqydjz[address] [place], [place] [address]Dr. Devin Suresh Eosinophils/100 WBC (Bld) 1.1 % Normal 0.9-7.0 [facility] Comment on above: Performed By: #### C BC ####[facility] Fgovroyzmq4[address] [place], [place] [address]Dr. Devin Suresh Erythrocyte distribution width (RBC) [Ratio] 12.0 % Normal 11.0-15.0 [facility] Comment on above: Performed By: #### C BC ####[facility] Oxbczepmgh3539 [place] [address]Dr. Devin Suresh Hematocrit (Bld) [Volume fraction] 34.1 % Critically low 36.0-48.[address] [facility] Comment on above: Performed By: #### C BC ####[facility] Begcmujvhi0152 [place] [address]Dr. Devin Suresh Hemoglobin (Bld) [Mass/Vol] 11.4 g/dL Critically low 12.0-16.0 [facility] Comment on above: Performed By: #### C BC ####[facility] Ltkqznupxu13[address] [place], [place] [address]Dr. Devin Suresh IG # 0.05 10e3/ul Critically high 0.00-0.03 [facility] Comment on above: Performed By: #### C BC ####[facility] Rexsmyypxp9[address] [place], [place] [address]Dr. Devin Suresh IG % 0.4 % Normal 0.0-0.[address] [facility] Comment on above: Performed By: #### C BC ####[facility] Jnezbifbos7[address] [place], [place] [address]Dr. Tishemily Suresh LYMPH # 1.6 103/ul Normal 1.2-3.[address] [facility] Comment on above: Performed By: #### C BC ####[facility] Oiuktxejzb[address] [place], [place] [address]Dr. Devin Suresh Lymphocytes/100 WBC (Bld) 11.9 % Critically low 20.5-60.[address] [facility] Comment on above: Performed By: #### C BC ####[facility] Eqilwsvewt5[address] [place], [place] [address]Dr. Devin Suresh MANUAL DIFF REQ NO Normal [facility] Comment on above: Performed By: #### C BC ####[facility] Uuidgmrorw5848 [place] [address]Dr. Devin Suresh MCH (RBC) [Entitic mass] 30.5 pg Normal 26.7-34.[address] [facility] Comment on above: Performed By: #### C BC ####[facility] Gujtgwrbcg5670 [place] [phone]. Tishemily Suresh MCHC (RBC) [Mass/Vol] 33.4 g/dL Normal 29.9-35.2 [facility] Comment on above: Performed By: #### C BC ####[facility] Uifrbcfopn6041 [place] [phone]. Devin Suresh MCV (RBC) [Entitic vol] 91.2 fL Normal 81.0-99.0 [facility] Comment on above: Performed By: #### C BC ####[facility] Ihuwfbetzo[address] [place], [place] [address]Dr. Devin Suresh MONO # 0.7 103/ul Normal 0.3-0.8 [facility] Comment on above: Performed By: #### C BC ####[facility] Tccnizzhpx2[address] [place], [place] [address]Dr. Devin Suresh Monocytes/100 WBC (Bld) 5.4 % Normal 1.7-12.0 [facility] Comment on above: Performed By: #### C BC ####[facility] Jaepyhhitb[address] [place], [place] [address]Dr. Devin Suresh NEUT # 11.0 103/ul Critically high 1.4-6.5 [facility] Comment on above: Performed By: #### C BC ####[facility] Rriovkvzcy[address] [place], [place] [address]Dr. Devin Suresh Neutrophils/100 WBC (Bld) 80.8 % Critically high 43.0-75.0 [facility] Comment on above: Performed By: #### C BC ####[facility] Jxayqziwci3564[address] [place], [place] [address]Dr. Devin Suresh Platelet mean volume (Bld) [Entitic vol] 9.1 fL Critically low 9.5-13.5 [facility] Comment on above: Performed By: #### C BC ####[facility] Ekigjpelov0[address] [place], [place] [address]Dr. Devin Suresh PLT 315 103/ul Normal 150-450 [facility] Comment on above: Performed By: #### C BC ####[facility] Kbablenxwn7541 [place] [phone]. Devin Suresh RBC 3.74 106/ul Critically low 4.20-5.40 [facility] Comment on above: Performed By: #### C BC ####[facility] Ctczbvyclx4697 [place] [phone]. Devin Suresh WBC 13.6 103/ul Critically high 4.0-11.0 [facility] Comment on above: Performed By: #### C BC ####[facility] Jnzpbzekdb2658 [place] [address]Dr. Devin Suresh CRPon 10-21-2022 CRP 12.8 mg/dL Critically high <=1.0 [facility] Comment on above: Performed By: #### C MP, CRP ####[facility] Coyxfwxaax4[address] [place], [place] [address]Dr. Devin Suresh LACTATE/LACTIC ACIDon 2022 Lactate [Moles/Vol] 1.6 mmol/L Normal 0.4-2.[address] [facility] Comment on above: Performed By: #### L ACT ####[facility] Beomsialgu90[address] [place], [place] [address]Dr. Devin Kerwin PH VENOUS BLOODon 10-21-2022 PCO2 VENOUS 49.5 mmHg Normal 40.0-52.[address] [facility] Comment on above: Performed By: #### P HVEN ####[facility] Onqeqftwwr6546 [place] [address]Dr. Devin Suresh pH VENOUS 7.334 Normal 7.330-7.[address] [facility] Comment on above: Performed By: #### P HVEN ####[facility] Njwxwlyvuv5358 [place] [address]Dr. Devin Suresh POINT OF CARE GLUCOSEon 09-24 Glucose [Mass/Vol] 151 mg/dL Critically high 74-106 [facility] Comment on above: Performed By: #### P OCGLUC ####[facility] Zw[address]zjjkdsn[address] [place] [address]Dr. Devin Suresh PROF 14(COMP METB)on 023 Albumin [Mass/Vol] 3.1 g/dL Critically low 3.4-5.0 [facility] Comment on above: Performed By: #### C MP, CRP ####[facility] Zzbxowlqzo2474 [place] [address]Dr. Devin Suresh Albumin/Globulin [Mass ratio] 0.6 {ratio} Normal [facility] Comment on above: Performed By: #### C MP, CRP ####[facility] Upyqyqpmyi0657 [place] [address]Dr. Devin Suresh ALP [Catalytic activity/Vol] 132 U/L Critically high 46-[address] [facility] Comment on above: Performed By: #### C MP, CRP ####[facility] Rhbjxkedms7834 [place] [address]Dr. Devin Suresh ALT [Catalytic activity/Vol] 20 U/L Normal 14-[address] [facility] Comment on above: Performed By: #### C MP, CRP ####[facility] Evlwuegacc5422 [place] [address]Dr. Devin Suresh Anion gap [Moles/Vol] 14.4 mmol/L Normal [facility] Comment on above: Performed By: #### C MP, CRP ####[facility] Qyvmmpayjy3715 [place] [address]Dr. Devin Suresh AST [Catalytic activity/Vol] 20 U/L Normal 15-[address] [facility] Comment on above: Performed By: #### C MP, CRP ####[facility] Tcczestnek7649 [place] [address]Dr. Devin Suresh Bilirubin [Mass/Vol] 0.3 mg/dL Normal 0.2-1.[address] [facility] Comment on above: Performed By: #### C MP, CRP ####[facility] Ixmmqjrjpk2429 [place] [address]Dr. Devin Suresh Calcium [Mass/Vol] 9.2 mg/dL Normal 8.5-10.1 [facility] Comment on above: Performed By: #### C MP, CRP ####[facility] Wsetguzhys3830 [place] [phone]. Devin Suresh Chloride [Moles/Vol] 101 mmol/L Normal 98-107 [facility] Comment on above: Performed By: #### C MP, CRP ####[facility] Pocxkgfzhc2384 [place] [address]Dr. Devin Suresh CO2 [Moles/Vol] 26.6 mmol/L Normal 21.0-32.0 [facility] Comment on above: Performed By: #### C MP, CRP ####[facility] Dtsfjhrzqf0409 [place] [address]Dr. Devin Suresh Creatinine [Mass/Vol] 1.34 mg/dL Critically high 0.55-1.[address] [facility] Comment on above: Performed By: #### C MP, CRP ####[facility] Vmtjxfjeza5872 [place] [address]Dr. Devin Kerwin EGFR-AF ARMENIAN 52 mL/min/1.73m2 Critically low >=[address] [facility] Comment on above: Performed By: #### C MP, CRP ####[facility] Ukydlpnutx1405 [place] [address]Dr. Devin Suresh EGFR-NON AF ARMENIAN 43 mL/min/1.73m2 Critically low >=[address] [facility] Comment on above: Performed By: #### C MP, CRP ####[facility] Rsmogrdbkp[address] [place] [address]Dr. Devin Suresh Globulin (S) [Mass/Vol] 4.9 g/dL Normal [facility] Comment on above: Performed By: #### C MP, CRP ####[facility] Dhaahtviiv[address] [place] [address]Dr. Devin Kerwin Glucose [Mass/Vol] 210 mg/dL Critically high 74-106 [facility] Comment on above: Performed By: #### C MP, CRP ####[facility] Aqaeb[address] [place], [place] [address]Dr. Devin Kerwin Potassium [Moles/Vol] 4.0 mmol/L Normal 3.5-5.1 [facility] Comment on above: Performed By: #### C MP, CRP ####[facility] Cvphxctbhw38[address] [place] [id number]. Devin Suresh Protein [Mass/Vol] 8.0 g/dL Normal 6.4-8.2 [facility] Comment on above: Performed By: #### C MP, CRP ####[facility] Ytuyshsgls[address] [place] [id number]. Devin Suresh Sodium [Moles/Vol] 138 mmol/L Normal 136-145 [facility] Comment on above: Performed By: #### C MP, CRP ####[facility] Qfpncdqrxo0744 [place] [id number]. Devin Suresh Urea nitrogen [Mass/Vol] 29.0 mg/dL Critically high 7.0-18.0 [facility] Comment on above: Performed By: #### C MP, CRP ####[facility] Wogcjdqdqz70[address] [place] [id number]. Devin Suresh Urea nitrogen/Creatinine [Mass ratio] 21.6 mg/mg Normal [facility] Comment on above: Performed By: #### C MP, CRP ####[facility] Uzbrepvmic[address] [place] [id number]. Devin Suresh [facility] 88 mm/hr Critically high <=20 The [facility] Comment on above: Performed By: #### S EDR ####[facility] [address]qogifslo[address] [place] [address]Dr. Devin Suresh XR ELBOW RT MIN 3 VIEWSon XR ELBOW RT MIN 3 VIEWS Normal [facility] XR FOOT RT MIN 3 VIEWSon XR FOOT RT MIN 3 VIEWS Normal [facility] BASIC METABOLIC PANELon 09-22 Anion gap [Moles/Vol] 14 mmol/L Normal 10-20 [facility] Comment on above: Performed By: #### C H8, CRP, MG ####[facility] [id number] [place], [id number] Calcium [Mass/Vol] 9.1 mg/dL Normal 8.4-10.4 [facility] Comment on above: Performed By: #### C H8, CRP, MG ####[facility] [id number] [place], [place], Chloride [Moles/Vol] 104 mmol/L Normal 97-111 [facility] Comment on above: Performed By: #### C H8, CRP, MG ####[facility] [id number] [place], [place], CO2 [Moles/Vol] 27 mmol/L Normal 21-30 The [facility] Comment on above: Performed By: #### C H8, CRP, MG ####[facility] [id number] [place], Creatinine [Mass/Vol] 0.90 mg/dL Normal 0.50-1.[address] [facility] Comment on above: Performed By: #### C H8, CRP, MG ####[facility] [id number] [place], [place], ESTIMATED GFR (CKD-EPI) 80 mL/min/1.73sqm Normal >=60 [facility] Comment on above: Result Comment: 2020 CKD EPI Equation using Creatinine without Race Comment: Estimated glomerular filtration rate (eGFR) is calculated without a race coefficient. Values should be interpreted in the context of the patient's full clinical presentation. Reference: 1. German C, Negrita M, Jomar MEJÍA, et al.. A Unifying Approach for GFR Estimation: Recommendations of the NKF-ASN Task Force on Reassessing the Inclusion of Race in Diagnosing Kidney Disease. [place] Journal of Kidney Diseases 2021;79(2):268-88.e1. 2. N Engl J Med 2020 Vol. 385 Issue 19 Pages 3872-8442 Performed By: #### C H8, CRP, MG ####[facility] [id number] [place], Glucose [Mass/Vol] 82 mg/dL Normal 68-110 The [facility] Comment on above: Performed By: #### C H8, CRP, MG ####[facility] [id number] [place], Potassium [Moles/Vol] 3.6 mmol/L Normal 3.3-5.[address] [facility] Comment on above: Performed By: #### C H8, CRP, MG ####[facility] [id number] [place], Sodium [Moles/Vol] 141 mmol/L Normal 135-[address] [facility] Comment on above: Performed By: #### Isabell H8, CRP, MG ####[facility] [id number] [place] [address], Urea nitrogen [Mass/Vol] 18 mg/dL Normal 8-[address] [facility] Comment on above: Performed By: #### Isabell H8, CRP, MG ####[facility] [id number] [place] [address], C-REACTIVE PROTEINon 16 023 CRP 0.8 mg/dL High <0.8 [facility] Comment on above: Performed By: #### Isabell H8, CRP, MG ####[facility] [id number] [place] [address], CBC WITH DIFFERENTIALon 09-22 Basophils (Bld) [#/Vol] 0.11 10*3/uL Normal 0.00-0.20 [facility] Comment on above: Performed By: #### C BCDSAT, ESR ####[facility] [id number] [place] [address], Basophils/100 WBC (Bld) 0.9 % Normal <=1.9 The [facility] Comment on above: Performed By: #### C BCDSAT, ESR ####[facility] [id number] [place], [place], Eosinophils (Bld) [#/Vol] 0.23 10*3/uL Normal 0.00-0.70 [facility] Comment on above: Performed By: #### C BCDSAT, ESR ####[facility] [id number] [place], Eosinophils/100 WBC (Bld) 1.9 % Normal 0.1-4.0 The [facility] Comment on above: Performed By: #### Isabell STARK, ESR ####S PATHOLOGY [id number] [place], [place], Erythrocyte distribution width (RBC) [Ratio] 12.6 % Normal 11.5-14.5 [facility] Comment on above: Performed By: #### Isabell STARK, ESR ####S PATHOLOGY [id number] [place] [address], Hematocrit (Bld) [Volume fraction] 37.9 % Normal 36.0-46.0 The [facility] Comment on above: Performed By: #### Isabell STARK, ESR ####[facility] [id number] [place] [address], Hemoglobin (Bld) [Mass/Vol] 12.6 g/dL Normal 12.0-15.0 The [facility] Comment on above: Performed By: #### Isabell STARK, ESR ####S PATHOLOGY [id number] [place] [address], Lymphocytes (Bld) [#/Vol] 3.20 10*3/uL Normal 1.00-4.80 The [facility] Comment on above: Performed By: #### Isabell STARK, ESR ####S PATHOLOGY [id number] [place] [address], Lymphocytes/100 WBC (Bld) 26.2 % Normal 24.0-44.0 The [facility] Comment on above: Performed By: #### Isabell STARK, ESR ####S PATHOLOGY [id number] [place], MCH (RBC) [Entitic mass] 30.1 pg Normal 26.0-34.0 The [facility] Comment on above: Performed By: #### Isabell STARK, ESR ####[facility] [id number] [place], MCHC (RBC) [Mass/Vol] 33.2 g/dL Normal 32.0-35.9 The [facility] Comment on above: Performed By: #### Isabell STARK, ESR ####[facility] [id number] [place] [address], [place], MCV (RBC) [Entitic vol] 91 fL Normal 80-[address] Comment on above: Performed By: #### Isabell STARK, ESR ####[facility] [id number] [place], MONOCYTE DISTRIBUTION WIDTH 21 High <=[address] [facility] Comment on above: Performed By: #### Isabell STARK, ESR ####[facility] [id number] [place] [address], Monocytes (Bld) [#/Vol] 0.62 10*3/uL Normal 0.20-1.[address] [facility] Comment on above: Performed By: #### Isabell STARK, ESR ####S PATHOLOGY [id number] [place] [address], Monocytes/100 WBC (Bld) 5.1 % Normal 2.0-11.[address] [facility] Comment on above: Performed By: #### Isabell STARK, ESR ####[facility] [id number] [place] [address], Neutrophils (Bld) [#/Vol] 8.05 10*3/uL High 1.50-8.[address] [facility] Comment on above: Performed By: #### Isabell STARK, ESR ####[facility] [id number] [place] [address], Neutrophils/100 WBC (Bld) 66.0 % Normal 31.0-76.0 The [facility] Comment on above: Performed By: #### Isabell STARK, ESR ####S PATHOLOGY [id number] [place], Platelet mean volume (Bld) [Entitic vol] 7.3 fL Low 7.5-11.[address] Comment on above: Performed By: #### Isabell STARK, ESR ####S PATHOLOGY [id number] [place], Platelets (Bld) [#/Vol] 380 10*3/uL Normal 150-[address] [facility] Comment on above: Performed By: #### C BCDSAT, ESR ####[facility] [id number] [place], RBC (Bld) [#/Vol] 4.18 10*6/uL Normal 4.00-5.[address] [facility] Comment on above: Performed By: #### C BCDSAT, ESR ####[facility] [id number] [place], WBC (Bld) [#/Vol] 12.2 10*3/uL High 4.5-11.[address] [facility] Comment on above: Performed By: #### C BCDSAT, ESR ####[facility] [id number] [place], [place], CT C-SPINE W/ CONTRASTon CT C-SPINE [...] neural foraminal narrowing. MACRO: None Normal [facility] CT Cervical spine W contrast [place] [...] bulging without neural foraminal narrowing. MACRO: None [facility] CT Cervical spine W contrast IVOrdered By: Kwaku Herman on 10-07-2022 [employer] Work Phone: CT T-SPINE/L-SPINE W/ CONTRA STon [...] or nerve impingement. MACRO: None Normal [facility] CT Thoracic and lumbar spine W [...] canal stenosis or nerve impingement. MACRO: None [facility] Consultson 10-07-2022 Financial Management Authentication Interface Message Text SPINE TRAUMA H [...] CT L spine myel[facility] in 2016 at [facility] significant for mild L4/5 foraminal stenosis. [...] Hct MCV RDW Plt PT aPTT INR 10/06/220 12.2 4.18 12.6 37.9 91 12.6 380 [...] please include ALL residents below in any Epic Chat communications: Ortho Trauma Team A: Courtney Jessica PGY1 ([phone]) Jacob Lo PGY3 ([phone]) After 5pm, weekends, and holidays please page Ortho consult pager, [phone] Normal The [employer] ED Provider Noteson 10-08-19 Financial Management Authentication Interface Message Text ED RESIDENT CONTINUATION [...] as of 10/07/22 0746 ThuOctober 06, 2022 213 Heart Rate(!): 102 [AC] 2316 COMPLETE BLOOD [...] diabetes mellitus with diabetic neuropathy, unspecified whether half-way insulin use (HCC) [E11.40] Disposition: Home The [...] Brown DO Rotating Resident, PGY-[address] [facility] ERYTHROCYTE SEDIMENTATION RA Estephania 10-07-2022 ESR (Bld) [Velocity] 48 mm/h High <=[address] [facility] Comment on above: Performed By: #### C BCDSAT, ESR ####S PATHOLOGY [id number] [place], MAGNESIUMon 10-07-2022 Magnesium [Mass/Vol] 1.4 mg/dL Low 1.6-2.[address] [facility] Comment on above: Performed By: #### C H8, CRP, MG ####S PATHOLOGY [id number] [place], [place], No Panel Informationon 10-07 Radiology Study observation (narrative) [facility] PROTHROMBIN TIME AND INRon 0 10-07-2022 INR Coag (PPP) [Relative time] 1.12 {INR} High 0.90-1.[address] [facility] Comment on above: Performed By: #### P T #### [facility] [address] [place] [address], PT Coag (PPP) [Time] 12.6 s Normal 9.7-12.[address] [facility] Comment on above: Performed By: #### P T #### S PATHOLOGY LABORATORY [address] [place] [address], INR Coag (PPP) [Relative time] 1.12 {INR} High 0.90 - 1.10 [facility] Interpretation and review of laboratory results Abnormal [facility] PT Coag (PPP) [Time] 12.6 s [facility] TYPE AND SCREENon 10-07-2022 ABO and Rh group Nom (Bld) Blood group A Rh(D) positive [facility] ABO and Rh group Nom (Bld) No Previous Results [facility] Blood group antibody screen Ql Negative [facility] ABO and Rh group Nom (Bld) Blood group A Rh(D) positive Normal [facility] Comment on above: Performed By: #### T S #### S PATHOLOGY LABORATORY [address] [place] [address], ABO and Rh group Nom (Bld) No Previous Results Normal [facility] Comment on above: Performed By: #### T S #### [facility] [address] [place] [address], ABSC INT Negative Normal [facility] Comment on above: Performed By: #### T S #### S PATHOLOGY LABORATORY [address] [place] [address], Basic metabolic 2000 panelon 10-06-2022 Anion gap [Moles/Vol] 14 mmol/L 10 - 20 [facility] Calcium [Mass/Vol] 9.1 mg/dL 8.4 - 10. 4 mg/dL [facility] Chloride [Moles/Vol] 104 mmol/L 97 - 11 1 mmol/L [facility] CO2 [Moles/Vol] 27 mmol/L 21 - 30 mmol/L [facility] Creatinine [Mass/Vol] 0.90 mg/dL 0.50 - 1.10 mg/dL [facility] GFR/1.73 sq M.predicted MDRD (S/P/Bld) [Vol rate/Area] 80 mL/min/{1.73_m2} - PINF [facility] Comment on above: 2020 CKD EPI Equatio n using Creatinine without Race Comment: Estimated glomerular filtration rate (eGFR) is calculated without a race coefficient. Values should be interpreted in the context of the patient's full clinical presentation. Reference: 1. Negrita Lacy, Jomar MEJÍA, et al.. A Unifying Approach for GFR Estimation: Recommendations of the NKF-ASN Task Force on Reassessing the Inclusion of Race in Diagnosing Kidney Disease. [place] Journal of Kidney Diseases 202;79(2):268-88.e1. 2. N Engl J Med 2020 Vol. 385 Issue 19 Pages 3696-7425 Glucose [Mass/Vol] 82 mg/dL 68 - 110 mg/dL [facility] Interpretation and review of laboratory results Normal [facility] Potassium [Moles/Vol] 3.6 mmol/L 3.3 - 5.3 mmol/L [facility] Sodium [Moles/Vol] 141 mmol/L 135 - 148 mmol/L [facility] Urea nitrogen [Mass/Vol] 18 mg/dL 8 - 22 mg/dL [facility] C-REACTIVE PROTEINon 10-06- 023 CRP [Mass/Vol] 0.8 mg/dL High NINF [...] 11. 1 mg/dL [facility] Chloride [Moles/Vol] 102 mmol/L Normal 101 - 1 11 mmol/L [facility] CO2 [Moles/Vol] 24 mmol/L Normal 21 - 31 mmol/L [facility] Creatinine [Mass/Vol] 1.0 mg/dL Normal 0.5 - 1.3 mg/dL [facility] GFR/1.73 sq M.predicted among non-blacks MDRD [...] 20 mg/dL Normal 5 - 21 mg/dL [facility] Urea nitrogen/Creatinine [Mass ratio] 20 mg/mg Normal 10 - 20 [facility] CHEMISTRYOrdered By: Lab ROP User on 10-06-2022 Glucose [Mass/Vol] 229 mg/dL High 55 - 99 mg/dL [facility] POC Subsection Comment on above: Result Comment: Peter yeh RN/MD POC Device SN [id number] Invalid Interpretation Code [facility] POC Subsection POC User ID [id number] Invalid Interpretation Code [facility] POC Subsection POC Username BURCIAGA BROOKLYNN Invalid Interpretation Code [facility] POC Subsection ED Provider Noteson 10-07-19 Financial Management Authentication Interface Message Text ----- Attestation with edits by Jocelyn Bowen MD at 10/07/2022 5:51 PM ATTENDING NOTE Patient transferred for MRI for concern cauda equina. Signed out at 2300 awaiting spine eval and discussion with EP or [employer] regarding device compatibility. I saw and evaluated [...] Complaint Patient presents with Chart Transfer from [facility] for MRI Staff Home Therapy Rn: not needed - patient preferred language is [place] Verdean. The history is provided by the Patient. Addie Jean Baptiste is a 47 year old female PMH DM2 c/b severe diabetic neuropathy, retention, hypothyroidism, bipolar presenting to the ED for lower extremity weakness and incontinence. Patient was transferred from [facility] for concerns of cauda equina syndrome. [...] to CT myelogram Discussion with External Provider: Shade Cloth Finisher from spine service recommends MRI or CT myelogram. Negative CT myelogram - recommend to follow up outpatient Discussion with External Provider: Shade Cloth Finisher from IR service recommends CT myelogram as cardiology cannot interrogate pacemaker due to another emergent procedure. Secondary Considerations / Diagnoses Addressed During this Visit: DM assessed and could be contributing to patient's weakness from neuropathy. Evaluated (more content not included)... Normal [facility] ERYTHROCYTE SEDIMENTATION RA Estephania 10-06-2022 ESR (Bld) [Velocity] 48 mm/h [facility] Interpretation and review of laboratory results Abnormal [facility] HEMATOLOGYOrdered By: SYSTEM SYSTEM on 10-06-2022 [...] 9.1 E9/L High 2.0 - 7.5 E9/L [facility] HEMATOLOGYOrdered By: Yolie Cuellar on 10-06-2022 Erythrocyte distribution width (RBC) [Ratio] 12.6 % Normal 10.9 - 14.2 % [facility] Hematocrit (Bld) [Volume fraction] 37.9 % Normal 34.0 - 46.0 % [facility] Hemoglobin (Bld) [Mass/Vol] 12.7 g/dL Normal 12.0 - 16.0 gm/dL [facility] MCH (RBC) [Entitic mass] 30.3 pg Normal 27.0 - 34.0 pg [facility] MCHC (RBC) [Mass/Vol] 33.5 g/dL Normal 31.4 - 36.0 gm/dL [facility]eAuto[facility] MCV (RBC) [Entitic vol] 90.5 fL Normal 80.0 - 100.0 fL [facility] [...] Low 1.6 - 2 .8 mg/dL [facility] No Panel Informationon 10-06 Interpretation and review of laboratory results [facility] X[facility] KUB 1 VIEWon 09-18-2022 XR KUB 1 VIEW Normal [facility] CHEMISTRYOrdered By: Lab ROP User on 09-15-2022 Glucose [Mass/Vol] 166 mg/dL High 55 - 99 mg/dL [facility] POC Subsection Comment on above: Result Comment: Peter yeh RN/ POC Device SN [id number] Invalid Interpretation Code [facility] POC Subsection POC User ID [id number] Invalid Interpretation Code [facility] POC Subsection POC Username Michi Huynh Invalid Interpretation Code [facility] POC Subsection Glucose [Mass/Vol] 172 mg/dL High 55 - 99 mg/dL [facility] POC Subsection Comment on above: Result Comment: Peter yeh RN/ POC Device SN [id number] Invalid Interpretation Code [facility] POC Subsection POC User ID [id number] Invalid Interpretation Code [facility] POC Subsection POC [...] 219 mg/dL High 55 - 99 mg/dL [facility] POC Subsection Comment on above: Result Comment: Prema piper Meter POC Device SN [id number] Invalid Interpretation Code [facility] POC Subsection POC User ID [id number] Invalid Interpretation Code [facility] POC Subsection POC Username TONIA BARBOSA Invalid Interpretation Code [facility] POC Subsection CHEMISTRYOrdered By: Elizabeth gorman on 09-14-2022 HbA1c (Bld) [Mass fraction] 9.4 % High <=5.9% [facility] ChemAutoSS CHEMISTRYOrdered By: SYSTEM SYSTEM on 09-14-2022 Anion gap [Moles/Vol] 8 mmol/L Normal 6 - 16 mEq/L [facility]isol Calcium [Mass/Vol] 8.0 mg/dL Low 8.9 - 11. 1 mg/dL [facility] Chloride [Moles/Vol] 108 mmol/L Normal 101 [...] 54 mL/min/1.73 m2 Low >=59mL/min/ 1.73 m2 [facility] Chem S Glucose [Mass/Vol] 152 mg/dL Normal 55 - 199 mg/dL [facility] Remisol Potassium [Moles/Vol] 4.2 mmol/L Normal 3.5 - 5.3 mmol/L [facility]isol Sodium [Moles/Vol] 138 mmol/L Normal 135 - 145 mmol/L [facility]isol Urea nitrogen [Mass/Vol] 27 mg/dL High 5 - 21 mg/dL [facility] [...] 1.3 mg/dL Normal 0.5 - 1.3 mg/dL [facility] GFR/1.73 sq M.predicted among blacks MDRD (S/P/Bld) [Vol rate/Area] 54 mL/min/1.73 m2 Low >=59mL/min/ 1.73 m2 [facility] Chem S GFR/1.73 sq M.predicted among non-blacks MDRD (S/P/Bld) [Vol rate/Area] 44 mL/min/1.73 m2 Low >=59mL/min/ 1.73 m2 [facility] Chem S Glucose [Mass/Vol] 98 mg/dL Normal 55 - 199 mg/dL [facility] Potassium [Moles/Vol] 4.3 mmol/L Normal 3.5 - 5.3 mmol/L [facility] Sodium [Moles/Vol] 137 mmol/L Normal [...] m2 [facility] S Globulin (S) [Mass/Vol] 3.6 g/dL Normal 1.4 - 4.0 gm/dL [facility] Glucose [Mass/Vol] 405 mg/dL High 55 - 199 mg/dL [facility] Lactate [Mass/Vol] 1.2 mmol/L Normal 0.5 - 2.2 mmol/L [facility] Protein [Mass/Vol] 7.1 g/dL Normal 6.0 - 7.8 gm/dL [facility] Troponin I.cardiac [Mass/Vol] 5.20 pg/mL Low 10.10 - 27.10 pg/mL [facility] Urea nitrogen [Mass/Vol] 22 mg/dL High 5 - 21 mg/dL [facility] Urea nitrogen/Creatinine [Mass ratio] 24 mg/mg High 10 - 20 [facility] COAGULATIONOrdered By: Glynn Bryant on 09-12-2022 [...] Romero on 09-12-2022 Glucose [Mass/Vol] 459 mg/dL [facility] Comment on above: Random Glucose Refer [...] E9/L [facility] No Panel InformationOrdered By: [facility] 09-12-2022 Blood Culture Charcoal No growth at 3 days. Final to follow at 7 days. [facility] Blood Culture Charcoal No growth at 3 days. Final to follow at 7 days. [facility] No Panel InformationOrdered By: Shameka Romero on 09-12-2022 Bedside Glucose #2 Comment Will notify /rn [facility] Bedside Glucose Comment Glu2: cleaned meter [facility] CHEMISTRYOrdered By: SYSTEM SYSTEM on 08-29-2022 [...] 178 mg/dL Normal 55 - 199 mg/dL FT [...] Normal 4.0 - 11.0 E9/L [facility] Calcium [Mass/volume] in Ser um or PlasmaOrdered By: Jeana Martini on 08-22-2022 Calcium [Mass/Vol] 8.1 mg/dL 8.6-10.3 [facility] Carbon dioxide, total [Moles /volume] in Serum or PlasmaOrdered By: Jeana Martini on 08-22-2022 CO2 [Moles/Vol] 25.9 mmol/L 21.0-31.0 [facility] Chloride [Moles/volume] in S hellen or PlasmaOrdered By: Jeana Martini on 08-22-2022 Chloride [Moles/Vol] 111 mmol/L 98-107 [facility] Creatinine [Mass/volume] in Serum or PlasmaOrdered By: Jeana Martini on 08-22-2022 Creatinine [Mass/Vol] 1.22 mg/dL 0.60-1.20 [facility] Glucose Glucometer (BldC) [M ass/Vol]Ordered By: Jeana Martini on 08-22-2022 Glucose [Mass/Vol] 207 mg/dL [facility] Comment on above: Random Glucose Refer ence Range is dependent on time and content of last meal. Glucose of more than 200 mg/dL in a nonstressed, ambulatory subject supports the diagnosis of Diabetes Mellitus. Glucose [Mass/volume] in Ser um or PlasmaOrdered By: Jaena Martini on 08-22-2022 Glucose [Mass/Vol] 141 mg/dL 70-100 [facility] Comment on above: ADA recommended refe rence rangeRandom Glucose Reference Range is dependent on time and content of last meal. Glucose of more than 200 mg/dL in a nonstressed, ambulatory subject supports the diagnosis of Diabetes Mellitus. Magnesium [Mass/volume] in S hellen or PlasmaOrdered By: Jeana Martini on 08-22-2022 Magnesium [Mass/Vol] 1.6 mg/dL 1.9-2.7 [facility] No Panel InformationOrdered By: Jeana Martini on 08-22-2022 Bedside Glucose Comment Glu2: cleaned meter [facility] Estimated GFR (CKD-EPI) 55.771 mL/Min [facility] Creatinine Clearance (Chem 70.62 [facility] Phosphate [Mass/volume] in S hellen or PlasmaOrdered By: Jeana Martini on 08-22-2022 Phosphate [Mass/Vol] 3.8 mg/dL 3.7-7.2 [facility] Potassium [Moles/volume] in Serum or PlasmaOrdered By: Jeana Martini on 08-22-2022 Potassium [Moles/Vol] 4.0 mmol/L 3.5-5.1 [facility] Serum or plasma anion gap de terminationOrdered By: Jeana Martini on 08-22-2022 Anion gap [Moles/Vol] 10.1 mmol/L 6.0-15.0 [facility] Sodium [Moles/volume] in Ser um or PlasmaOrdered By: Jeana Martini on 08-22-2022 Sodium [Moles/Vol] 143 mmol/L 136-145 [facility] Urea nitrogen [Mass/volume] in Serum or PlasmaOrdered By: Jeana Martini on 08-22-2022 Urea nitrogen [Mass/Vol] 20 mg/dL 7-25 [facility] Basophils Auto (Bld) [#/Vol] Ordered By: Jeana Martini on 08-21-2022 Basophils (Bld) [#/Vol] 0.1 10*3/uL 0.0-0.2 [facility] Basophils/100 WBC Auto (Bld) Ordered By: Jeana Martini on 08-21-2022 Basophils/100 WBC (Bld) 0.8 % . [facility] Eosinophils Auto (Bld) [#/Vo l]Ordered By: Jeana Martini on 08-21-2022 Eosinophils (Bld) [#/Vol] 0.2 10*3/uL 0.0-0.45 [facility] Eosinophils/100 WBC Auto (Bl d)Ordered By: Jeana Martini on 08-21-2022 Eosinophils/100 WBC (Bld) 1.8 % . [facility] Erythrocyte distribution wid th Auto (RBC) [Ratio]Ordered By: Jeana Martini on 08-21-2022 Erythrocyte distribution width (RBC) [Ratio] 14.5 % 11.9-15.3 [facility] Hematocrit Auto (Bld) [Volum e fraction]Ordered By: Jeana Martini on 08-21-2022 Hematocrit (Bld) [Volume fraction] 31.3 % 34.0-46.4 [facility] Hemoglobin [Mass/volume] in BloodOrdered By: Jeana Martini on 08-21-2022 Hemoglobin (Bld) [Mass/Vol] 10.7 g/dL 11.8-15.4 [facility] Leukocytes [#/volume] correc shantel for nucleated erythrocytes in Blood by Automated counOrdered By: Jeana Martini on 08-21-2022 WBC corrected for nucl RBC Auto (Bld) [#/Vol] 8.2 10*3/uL 3.8-11.6 [facility] Lymphocytes Auto (Bld) [#/Vo l]Ordered By: Jeana Martini on 08-21-2022 Lymphocytes (Bld) [#/Vol] 1.7 10*3/uL 1.00-4.8 [facility] Lymphocytes/100 WBC Auto (Bl d)Ordered By: Jeana Martini on 08-21-2022 Lymphocytes/100 WBC (Bld) 20.6 % . [facility] MCH Auto (RBC) [Entitic mass ]Ordered By: Jeana Martini on 08-21-2022 MCH (RBC) [Entitic mass] 31.5 pg 24.7-34.3 [facility] MCHC Auto (RBC) [Mass/Vol]Or dered By: Jeana Martini on 08-21-2022 MCHC (RBC) [Mass/Vol] 34.3 g/dL 32.0-35.0 [facility] MCV Auto (RBC) [Entitic vol] Ordered By: Jeana Martini on 08-21-2022 MCV (RBC) [Entitic vol] 91.8 fL 80-100 [facility] Monocytes Auto (Bld) [#/Vol] Ordered By: Jeana Martini on 08-21-2022 Monocytes (Bld) [#/Vol] 0.6 10*3/uL 0.0-0.8 [facility] Monocytes/100 WBC Auto (Bld) Ordered By: Jeana Martini on 08-21-2022 Monocytes/100 WBC (Bld) 7.4 % . [facility] Neutrophils Auto (Bld) [#/Vo l]Ordered By: Jeana Martini on 08-21-2022 Neutrophils (Bld) [#/Vol] 5.7 10*3/uL 1.8-7.7 [facility] Neutrophils/100 WBC Auto (Bl d)Ordered By: Jeana Martini on 08-21-2022 Neutrophils/100 WBC (Bld) 69.4 % . [facility] Nucleated erythrocytes [Pres ence] in Blood by Automated countOrdered By: Jeana Martini on 08-21-2022 Nucleated RBC Auto Ql (Bld) 0.0 /100{WBC} 0-0.5 [facility] Platelet mean volume Auto (B ld) [Entitic vol]Ordered By: Jeana Martini on 08-21-2022 Platelet mean volume (Bld) [Entitic vol] 6.9 fL 6.3-10.7 [facility] Platelets Auto (Bld) [#/Vol] Ordered By: Jeana Martini on 08-21-2022 Platelets (Bld) [#/Vol] 291 10*3/uL 150-450 [facility] RBC Auto (Bld) [#/Vol]Ordere d By: Jeana Martini on 08-21-2022 RBC (Bld) [#/Vol] 3.41 10*6/uL 3.60-5.00 [facility] WBC Auto (Bld) [#/Vol]Ordere d By: Jeana Martini on 08-21-2022 WBC (Bld) [#/Vol] 8.2 10*3/uL 3.8-11.6 [facility] Activated partial thrombopla stin time (aPTT) in platelet poor plasma by coagulation aOrdered By: Jacob Farfan on 08-20-2022 aPTT Coag (PPP) [Time] 62.3 s 25.1-36.5 [facility] Alanine aminotransferase [En zymatic activity/volume] in Serum or PlasmaOrdered By: Jacob Fafran on 08-20-2022 ALT [Catalytic activity/Vol] 7 U/L 7-52 [facility] Albumin [Mass/volume] in Ser um or Plasma by Bromocresol green (BCG) dye binding methoOrdered By: Jacob Farfan on 08-20-2022 Albumin BCG dye [Mass/Vol] 3.6 g/dL 3.5-5.7 [facility] Alkaline phosphatase [Enzyma tic activity/volume] in Serum or PlasmaOrdered By: Jacob Farfan on 08-20-2022 ALP [Catalytic activity/Vol] 82 U/L 34-104 [facility] Amphetamine Screen Ql (U)Ord ered By: Jacob Farfan on 08-20-2022 Amphetamines Ql (U) Negative Negative [facility] Aspartate aminotransferase [ Enzymatic activity/volume] in Serum or PlasmaOrdered By: Jacob Farfan on 08-20-2022 AST [Catalytic activity/Vol] 9 U/L 13-39 [facility] Automated erythrocytes count in urine sediment (number/area)Ordered By: Jacob Farfan on 08-20-2022 RBC Auto (Urine sed) [#/Area] 5-9 [HPF] 0-4 [facility] Automated leukocytes count i n urine sediment (number/area)Ordered By: Jacob Farfan on 08-20-2022 WBC Auto (Urine sed) [#/Area] 10-19 [HPF] 0-4 [facility] Bacterial blood cultureOrder ed By: Jeana Martini on 08-20-2022 Bacteria identified Cx Nom (Bld) NO GROWTH 5 DAYS [facility] Barbiturates [Presence] in U rine by Screen methodOrdered By: Jacob Farfan on 08-20-2022 Barbiturates Screen Ql (U) Negative Negative [facility] Basophils Auto (Bld) [#/Vol] Ordered By: Jacob Farfan on 08-20-2022 Basophils (Bld) [#/Vol] 0.1 10*3/uL 0.0-0.2 [facility] Basophils/100 WBC Auto (Bld) Ordered By: Jacob Farfan on 08-20-2022 Basophils/100 WBC (Bld) 0.7 % . [facility] Benzodiazepines Screen Ql (U )Ordered By: Jacob Farfan on 08-20-2022 Benzodiazepines Ql (U) Negative Negative [facility] Benzoylecgonine [Presence] i n Urine by Screen methodOrdered By: Jacob Farfan on 08-20-2022 Benzoylecgonine Screen Ql (U) Negative Negative [facility] Bilirubin Test strip Ql (U)O rdered By: Jacob Farfan on 08-20-2022 Bilirubin Ql (U) Negative Negative [facility] Bilirubin.total [Mass/volume ] in Serum or PlasmaOrdered By: Jacob Farfan on 08-20-2022 Bilirubin [Mass/Vol] 0.4 mg/dL 0.3-1.0 [facility] C reactive protein [Mass/vol ume] in Serum or PlasmaOrdered By: Jeana Martini on 08-20-2022 CRP [Mass/Vol] 1.5 mg/dL 0.0-0.5 [facility] C reactive protein [Mass/vol ume] in Serum or PlasmaOrdered By: Jacob Farfan on 08-20-2022 CRP [Mass/Vol] 1.9 mg/dL 0.0-0.5 [facility] Calcium [Mass/volume] in Ser um or PlasmaOrdered By: Jacob Farfan on 08-20-2022 Calcium [Mass/Vol] 9.2 mg/dL 8.6-10.3 [facility] Cannabinoids [Presence] in U rine by Screen methodOrdered By: Jacob Farfan on 08-20-2022 Cannabinoids Screen Ql (U) Negative Negative [facility] Comment on above: These are unconfirme d results and should not be used for legal purposes. Drug Cut-Off Concentration: AMPH 1000 ng/mL JULIANNA 200 ng/mL ALICE 200 ng/mL COCM 300 ng/mL OP 300 ng/mL PCP 25 ng/mL THC 20 ng/mL Carbon dioxide, total [Moles /volume] in Serum or PlasmaOrdered By: Jacob Farfan on 08-20-2022 CO2 [Moles/Vol] 28.0 mmol/L 21.0-31.0 [facility] Chloride [Moles/volume] in S hellen or PlasmaOrdered By: Jacob Farfan on 08-20-2022 Chloride [Moles/Vol] 105 mmol/L 98-107 [facility] Color Auto (U)Ordered By: Lenin Farfan on 08-20-2022 Color (U) Yellow Yellow [facility] Creatinine [Mass/volume] in Serum or PlasmaOrdered By: Jacob Farfan on 08-20-2022 Creatinine [Mass/Vol] 0.93 mg/dL 0.60-1.20 [facility] Eosinophils Auto (Bld) [#/Vo l]Ordered By: Jacob Farfan on 08-20-2022 Eosinophils (Bld) [#/Vol] 0.1 10*3/uL 0.0-0.45 [facility] Eosinophils/100 WBC Auto (Bl d)Ordered By: Jacob Farfan on 08-20-2022 Eosinophils/100 WBC (Bld) 1.3 % . [facility] Erythrocyte distribution wid th Auto (RBC) [Ratio]Ordered By: Jacob Farfan on 08-20-2022 Erythrocyte distribution width (RBC) [Ratio] 14.5 % 11.9-15.3 [facility] Erythrocyte sedimentation ra te by Photometric methodOrdered By: Jacob Farfan on 08-20-2022 ESR Photometric method (Bld) [Velocity] 47 mm/hr 0-19 [facility] Globulin Calc (S) [Mass/Vol] Ordered By: Jacob Farfan on 08-20-2022 Globulin (S) [Mass/Vol] 2.8 g/dL [facility] Glucose Glucometer (BldC) [M ass/Vol]Ordered By: Jacob Farfan on 08-20-2022 Glucose [Mass/Vol] 226 mg/dL [facility] Comment on above: Random Glucose Refer ence Range is dependent on time and content of last meal. Glucose of more than 200 mg/dL in a nonstressed, ambulatory subject supports the diagnosis of Diabetes Mellitus. Glucose [Mass/volume] in Ser um or PlasmaOrdered By: Jacob Farfan on 08-20-2022 Glucose [Mass/Vol] 234 mg/dL 70-100 [facility] Comment on above: ADA recommended refe [...] from glycated hemoglobin (Bld) [Mass/Vol] 220 mg/dL [facility] Hematocrit Auto (Bld) [Volum e fraction]Ordered By: Jacob Farfan on 08-20-2022 Hematocrit (Bld) [Volume fraction] 34.4 % 34.0-46.4 [facility] Hemoglobin A1c percentageOrd ered By: Ezekiel Mathew on 08-20-2022 HbA1c (Bld) [Mass fraction] 9.3 % 4.3-5.6 [facility] Comment on above: Increased risk for d iabetes: 5.7 - 6.4diabetes: >6.4glycemic control for adults with diabetes: <7.0 Hemoglobin [Mass/volume] in BloodOrdered By: Jacob Farfan on 08-20-2022 Hemoglobin (Bld) [Mass/Vol] 11.6 g/dL 11.8-15.4 [facility] Ketones Auto test strip (U) [Mass/Vol]Ordered By: Jacob Farfan on 08-20-2022 Ketones (U) [Mass/Vol] Negative Negative [facility] Laboratory - Chemistry and C hemistry - challengeOrdered By: Jacob Farfan on 08-20-2022 GFR/1.73 sq M.predicted MDRD (S/P/Bld) [Vol rate/Area] mL/min/{1.73_m2} [facility] - CoagulationOrde red By: Jacob Farfan on 08-20-2022 PT Coag (PPP) [Time] 12.2 s 9.0-12.9 [facility] Laboratory - UrinalysisOrder ed By: Jacob Farfan on 08-20-2022 Hyaline casts LM Ql (Urine sed) 0-8 [LPF] 0-8 [facility] Leukocytes [#/volume] correc shantel for nucleated erythrocytes in Blood by Automated counOrdered By: Jacob Farfan on 08-20-2022 WBC corrected for nucl RBC Auto (Bld) [#/Vol] 8.5 10*3/uL 3.8-11.6 [facility] Lymphocytes Auto (Bld) [#/Vo l]Ordered By: Jacob Farfan on 08-20-2022 Lymphocytes (Bld) [#/Vol] 2.3 10*3/uL 1.00-4.8 [facility] Lymphocytes/100 WBC Auto (Bl d)Ordered By: Jacob Farfan on 08-20-2022 Lymphocytes/100 WBC (Bld) 27.3 % . [facility] MCH Auto (RBC) [Entitic mass ]Ordered By: Jacob Farfan on 08-20-2022 MCH (RBC) [Entitic mass] 30.8 pg 24.7-34.3 [facility] MCHC Auto (RBC) [Mass/Vol]Or dered By: Jacob Farfan on 08-20-2022 MCHC (RBC) [Mass/Vol] 33.8 g/dL 32.0-35.0 [facility] MCV Auto (RBC) [Entitic vol] Ordered By: Jacob Farfan on 08-20-2022 MCV (RBC) [Entitic vol] 91.2 fL 80-100 [facility] Magnesium [Mass/volume] in S hellen or PlasmaOrdered By: Jacob Farfan on 08-20-2022 Magnesium [Mass/Vol] 1.2 mg/dL 1.9-2.7 [facility] Monocyte distribution width [Entitic volume] in Blood by AutomatedOrdered By: Jacob Farfan on 08-20-2022 Monocyte distribution width Auto (Bld) [Entitic vol] 20.72 % 0.00-20.00 [facility] Comment on above: For adults in ED, MD W > 20.0 may be associated with a higher risk of sepsis during the first 12 hrs of hospital admission Monocytes Auto (Bld) [#/Vol] Ordered By: Jacob Farfan on 08-20-2022 Monocytes (Bld) [#/Vol] 0.5 10*3/uL 0.0-0.8 [facility] Monocytes/100 WBC Auto (Bld) Ordered By: Jacob Farfan on 08-20-2022 Monocytes/100 WBC (Bld) 6.0 % . [facility] Neutrophils Auto (Bld) [#/Vo l]Ordered By: Jacob Farfan on 08-20-2022 Neutrophils (Bld) [#/Vol] 5.5 10*3/uL 1.8-7.7 [facility] Neutrophils/100 WBC Auto (Bl d)Ordered By: Jacob Farfan on 08-20-2022 Neutrophils/100 WBC (Bld) 64.7 % . [facility] Nitrite Test strip Ql (U)Ord ered By: Jacob Farfan on 08-20-2022 Nitrite Ql (U) Negative Negative [facility] No Panel InformationOrdered By: Jeana Martini on 08-20-2022 Bedside Glucose #2 Comment Cleaned meter [facility] No Panel InformationOrdered By: Jacob Farfan on 08-20-2022 Pharmacy Creatinine Clearance (Chem 91.29 [facility] Nucleated erythrocytes [Pres ence] in Blood by Automated countOrdered By: Jacob Farfan on 08-20-2022 Nucleated RBC Auto Ql (Bld) 0.0 /100{WBC} 0-0.5 [facility] Opiates [Presence] in Urine by Screen methodOrdered By: Jacob Farfan on 08-20-2022 Opiates Screen Ql (U) Negative Negative [facility] Phencyclidine Screen Ql (U)O rdered By: Jacob Farfan on 08-20-2022 Phencyclidine Ql (U) Negative Negative [facility] Platelet mean volume Auto (B ld) [Entitic vol]Ordered By: Jacob Farfan on 08-20-2022 Platelet mean volume (Bld) [Entitic vol] 6.9 fL 6.3-10.7 [facility] Platelet poor plasma interna tional normalized ratio (INR) by coagulation assay (relatOrdered By: Jacob Farfan on 08-20-2022 INR Coag (PPP) [Relative time] 1.1 {INR} [facility] Comment on above: INR Therapeutic Rang [...] 08-20-2022 Platelets (Bld) [#/Vol] 326 10*3/uL 150-450 [facility] Potassium [Moles/volume] in Serum or PlasmaOrdered By: Jacob Farfan on 08-20-2022 Potassium [Moles/Vol] 3.3 mmol/L 3.5-5.1 [facility] Protein Auto test strip (U) [Mass/Vol]Ordered By: Jacob Farfan on 08-20-2022 Protein (U) [Mass/Vol] 100 mg/dL Negative [facility] Protein [Mass/volume] in Ser um or PlasmaOrdered By: Jacob Farfan on 08-20-2022 Protein [Mass/Vol] 6.4 g/dL 6.4-8.9 [facility] RBC Auto (Bld) [#/Vol]Ordere d By: Jacob Farfan on 08-20-2022 RBC (Bld) [#/Vol] 3.77 10*6/uL 3.60-5.00 [facility] Serum or plasma albumin/glob ulin mass ratioOrdered By: Jacob Farfan on 08-20-2022 Albumin/Globulin [Mass ratio] 1.3 {ratio} [facility] Serum or plasma anion gap de terminationOrdered By: Jacob Farfan on 08-20-2022 Anion gap [Moles/Vol] 11.3 mmol/L 6.0-15.0 [facility] Sodium [Moles/volume] in Ser um or PlasmaOrdered By: Jacob Farfan on 08-20-2022 Sodium [Moles/Vol] 141 mmol/L 136-145 [facility] Specific gravity Auto test s trip (U) [Rel density]Ordered By: Jacob Farfan on 08-20-2022 Specific gravity (U) [Rel density] 1.017 1.001-1.030 [facility] Squamous epithelial cells de tection in urine sediment by light microscopyOrdered By: Jacob Farfan on 08-20-2022 Epithelial cells.squamous LM Ql (Urine sed) 3-4 [HPF] 0-2 [facility] Troponin I.cardiac [Mass/vol ume] in Serum or Plasma by Detection limit <= 0.01 ng/Ordered By: Jacob Farfan on 08-20-2022 Troponin I.cardiac DL <= 0.01 ng/mL [Mass/Vol] 8.2 pg/mL 0.0-15.0 [facility] Urea nitrogen [Mass/volume] in Serum or PlasmaOrdered By: Jacob Farfan on 08-20-2022 Urea nitrogen [Mass/Vol] 15 mg/dL 7-25 [facility] Urine bacteria detection by automated methodOrdered By: Jacob Farfan on 08-20-2022 Bacteria Auto Ql (U) 1+ None Seen [facility] Urine clarity by refractomet ry automatedOrdered By: Jacob Farfan on 08-20-2022 Clarity Refractometry automated (U) Clear Clear [facility] Urine glucose measurement by automated test strip (mass/volume)Ordered By: Jacob Farfan on 08-20-2022 Glucose Auto test strip (U) [Mass/Vol] >=1000 mg/dL Normal [facility] Urine hemoglobin detection b y automated test stripOrdered By: Jacob Farfan on 08-20-2022 Hemoglobin Auto test strip Ql (U) Trace Negative [facility] Urine leukocyte esterase det ection by automated test stripOrdered By: Jacob Farfan on 08-20-2022 Leukocyte esterase Auto test strip Ql (U) Negative Negative [facility] Urobilinogen Auto test strip (U) [Mass/Vol]Ordered By: Jacob Farfan on 08-20-2022 Urobilinogen (U) [Mass/Vol] Normal mg/dL Normal [facility] Vitamin D+Metabolites [Mass/ volume] in Serum or PlasmaOrdered By: Ezekiel Mathew on 08-20-2022 Vitamin D+Metabolites [Mass/Vol] < 7.0 ng/mL 30-100 [facility] Comment on above: VITAMIN D STATUS 25( [place])VITAMIN D RANGE (ng/mL) Deficient <20 Insufficient 20 to <30Sufficient 30 to 100Reference: Bernie MF,Hina ARELLANO, Tran THIBODEAUX, et al. Evaluation,treatment, and prevention of vitamin D deficiency; an Endocrine Society clinical practice guideline. JCEM. 2010; 96(7):1911-30. WBC Auto (Bld) [#/Vol]Ordere d By: Jacob Farfan on 08-20-2022 WBC (Bld) [#/Vol] 8.5 10*3/uL 3.8-11.6 [facility] pH Auto test strip (U)Ordere d By: Jacob Farfan on 08-20-2022 pH (U) 6.5 [pH] 5.0-9.0 [facility] CHEMISTRYOrdered By: SYSTEM SYSTEM on 08-19-2022 [...] [place] Chem S Globulin (S) [Mass/Vol] 3.3 g/dL Normal 1.4 - 4.0 gm/dL [facility] Glucose [Mass/Vol] 204 mg/dL High 55 [...] 6.8 E9/L Normal 2.0 - 7.5 E9/L [facility] [place] [facility] HEMATOLOGYOrdered By: Shannen Sosa on 08-19-2022 Erythrocyte distribution width (RBC) [Ratio] 14.1 % Normal 10.9 - 14.2 % [facility] Hematocrit (Bld) [Volume fraction] 36.2 % Normal 34.0 - 46.0 % [facility] Hemoglobin (Bld) [Mass/Vol] 12.5 g/dL Normal 12.0 - 16.0 gm/dL [facility] MCH (RBC) [Entitic mass] 31.1 pg Normal 27.0 - 34.0 pg [facility] MCHC (RBC) [Mass/Vol] 34.4 g/dL Normal 31.4 - 36.0 gm/dL [facility] MCV (RBC) [Entitic vol] 90.4 fL Normal 80.0 - 100.0 fL [facility] Platelet mean volume (Bld) [Entitic vol] 7.2 fL Normal 6.4 - 10.8 fL [facility] Platelets (Bld) [#/Vol] 333.0 E9/L Normal 150.0 - 500.0 E9/L [facility] RBC (Bld) [#/Vol] 4.0 E12/L Low 4.3 - 5.9 E12/L [facility] Sed Rate Automated 33 mm/h Normal 0 - 34 mm/hr [facility] WBC corrected for nucl RBC Auto (Bld) [#/Vol] 9.2 E9/L Normal 4.0 - 11.0 E9/L [facility] [place] [facility] CBC AUTO DIFFon 08-06-2022 BASO # 0.0 103/ul Normal 0.0-0.1 [facility] Comment on above: Performed By: #### C BC ####[facility] [address] [place] [address]DrMaris Suresh Basophils/100 WBC (Bld) 0.5 % Normal 0.2-2.0 [facility] Comment on above: Performed By: #### C BC ####[facility] [address] [place] [address]DrMaris Suresh EO # 0.1 103/ul Normal 0.0-0.7 [facility] Comment on above: Performed By: #### C BC ####[facility] [address] [place] [address]Dr. Devin Suresh Eosinophils/100 WBC (Bld) 1.6 % Normal 0.9-7.0 [facility] Comment on above: Performed By: #### C BC ####[facility] [address] [place] [address]Dr. Devin Suresh Erythrocyte distribution width (RBC) [Ratio] 13.3 % Normal 11.0-15.0 [facility] Comment on above: Performed By: #### C BC ####[facility] [address] [place] [address]Dr. Devin Suresh Hematocrit (Bld) [Volume fraction] 30.1 % Critically low 36.0-48.0 [facility] Comment on above: Performed By: #### C BC ####[facility] [address] [place], [place] [address]Dr. Devin Suresh Hemoglobin (Bld) [Mass/Vol] 10.6 g/dL Critically low 12.0-16.0 [facility] Comment on above: Performed By: #### C BC ####[facility] [address] [place], [place] [address]Dr. Devin Suresh IG # 0.04 10e3/ul Critically high 0.00-0.03 [facility] Comment on above: Performed By: #### C BC ####[facility] [address] [place] [address]Dr. Devin Suresh IG % 0.6 % Critically high 0.0-0.5 [facility] Comment on above: Performed By: #### C BC ####[facility] [address] [place], [place] [address]Dr. Devin Suresh LYMPH # 2.3 103/ul Normal 1.2-3.8 [facility] Comment on above: Performed By: #### C BC ####[facility] [address] [place], [place] [address]Dr. Devin Suresh Lymphocytes/100 WBC (Bld) 36.0 % Normal 20.5-60.0 [facility] Comment on above: Performed By: #### C BC ####[facility] [address] [place] [address]Dr. Devin Suresh MANUAL DIFF REQ NO Normal [facility] Comment on above: Performed By: #### C BC ####[facility] [address] [place] [address]Dr. Devin Suresh MCH (RBC) [Entitic mass] 31.1 pg Normal 26.7-34.0 [facility] Comment on above: Performed By: #### C BC ####[facility] [address] [place], [place] [address]Dr. Devin Suresh MCHC (RBC) [Mass/Vol] 35.2 g/dL Normal 29.9-35.2 [facility] Comment on above: Performed By: #### C BC ####[facility] [address] [place], [place] [address]Dr. Devin Suresh MCV (RBC) [Entitic vol] 88.3 fL Normal 81.0-99.0 [facility] Comment on above: Performed By: #### C BC ####[facility] [address] [place], [place] [address]Dr. Devin Suresh MONO # 0.4 103/ul Normal 0.3-0.8 [facility] Comment on above: Performed By: #### C BC ####[facility] [address] [place], [place] [address]Dr. Devin Suresh Monocytes/100 WBC (Bld) 6.1 % Normal 1.7-12.0 [facility] Comment on above: Performed By: #### C BC ####[facility] [address] [place], [place] [address]DrMaris Suresh NEUT # 3.5 103/ul Normal 1.4-6.5 [facility] Comment on above: Performed By: #### C BC ####[facility] [address] [place], [place] [address]Dr. Devin Suresh Neutrophils/100 WBC (Bld) 55.2 % Normal 43.0-75.[address] [facility] Comment on above: Performed By: #### C BC ####[facility] [address] [place] [address]Dr. Devin Suresh Platelet mean volume (Bld) [Entitic vol] 8.3 fL Critically low 9.5-13.[address] [facility] Comment on above: Performed By: #### C BC ####[facility] [address] [place] [address]Dr. Devin Kerwin PLT 244 103/ul Normal 150-[address] [facility] Comment on above: Performed By: #### C BC ####[facility] [address] [place] [address]Dr. Devin Kerwin RBC 3.41 106/ul Critically low 4.20-5.40 [facility] Comment on above: Performed By: #### C BC ####[facility] [address] [place], [place] [address]Dr. Devin Suresh WBC 6.3 103/ul Normal 4.0-11.[address] [facility] Comment on above: Performed By: #### C BC ####[facility] [address] [place], [place] [address]DrMaris Devin Kerwin POINT OF CARE GLUCOSEon 07-23 Glucose [Mass/Vol] 209 mg/dL Critically high 74-106 [facility] Comment on above: Performed By: #### P OCGLUC ####[facility] [address] [place], [place] [address]DrMaris Suresh PROF 14(COMP METB)on 023 Albumin [Mass/Vol] 3.2 g/dL Critically low 3.4-5.0 [facility] Comment on above: Performed By: #### C MP ####[facility] [address] [place] [address]Dr. Devin Kerwin Albumin/Globulin [Mass ratio] 1.1 {ratio} Normal [facility] Comment on above: Performed By: #### C MP ####[facility] [address] [place] [id number]. Devin Suresh ALP [Catalytic activity/Vol] 85 U/L Normal 46-116 [facility] Comment on above: Performed By: #### C MP ####[facility] [address] [place] [id number]. Devin Suresh ALT [Catalytic activity/Vol] 14 U/L Normal 14-[address] [facility] Comment on above: Performed By: #### C MP ####[facility] [address] [place] [id number]. Devin Suresh Anion gap [Moles/Vol] 12.7 mmol/L Normal [facility] Comment on above: Performed By: #### C MP ####[facility] [address] [place] [address]Dr. Devin Suresh AST [Catalytic activity/Vol] 14 U/L Critically low 15-[address] [facility] Comment on above: Performed By: #### C MP ####[facility] [address] [place] [address]Dr. Devin Suresh Bilirubin [Mass/Vol] 0.4 mg/dL Normal 0.2-1.[address] [facility] Comment on above: Performed By: #### C MP ####[facility] [address] [place] [address]Dr. Devin Suresh Calcium [Mass/Vol] 7.9 mg/dL Critically low 8.5-10.1 [facility] Comment on above: Performed By: #### C MP ####[facility] [address] [place] [address]Dr. Devin Suresh Chloride [Moles/Vol] 106 mmol/L Normal 98-107 [facility] Comment on above: Performed By: #### C MP ####[facility] [address] [place] [address]Dr. Devin Suresh CO2 [Moles/Vol] 23.5 mmol/L Normal 21.0-32.0 [facility] [facility] Comment on above: Performed By: #### C MP ####[facility] Tnqizoosxz8[address] [place] [address]Dr. Devin Suresh Creatinine [Mass/Vol] 0.88 mg/dL Normal 0.55-1.[address] [facility] Comment on above: Performed By: #### C MP ####[facility] Oxxedukcqx36[address] [place] [address]Dr. Tishemily Kerwin EGFR-AF ARMENIAN >60 Normal >=60 [facility] Comment on above: Performed By: #### C MP ####[facility] Ypvdjokxxe6141 [place] [address]Dr. Devin Suresh EGFR-NON AF ARMENIAN >60 Normal >=[address] [facility] Comment on above: Performed By: #### C MP ####[facility] Mrhvzkdinr[address] [place], [place] [address]Dr. Devin Suresh Globulin (S) [Mass/Vol] 2.8 g/dL Normal [facility] Comment on above: Performed By: #### C MP ####[facility] Exargotzig[address] [place], [place] [address]Dr. Devin Suresh Glucose [Mass/Vol] 165 mg/dL Critically high 74-106 [facility] Comment on above: Performed By: #### C MP ####[facility] Pvrynezpyh[address] [place], [place] [address]Dr. Devin Suresh Potassium [Moles/Vol] 3.2 mmol/L Critically low 3.5-5.[address] [facility] Comment on above: Performed By: #### C MP ####[facility] Beebxegfks[address] [place], [place] [address]Dr. Devin Suresh Protein [Mass/Vol] 6.0 g/dL Critically low 6.4-8.2 [facility] Comment on above: Performed By: #### C MP ####[facility] Loykjrtjgg7[address] [place], [place] [address]Dr. Devin Suresh Sodium [Moles/Vol] 139 mmol/L Normal 136-145 [facility] Comment on above: Performed By: #### C MP ####[facility] Qtngqcysfe2430[address] [place], [place] [address]Dr. Devin Suresh Urea nitrogen [Mass/Vol] 5.0 mg/dL Critically low 7.0-18.0 [facility] Comment on above: Performed By: #### C MP ####[facility] Vdwcfshbei99[address] [place], [place] [address]Dr. Devin Kerwin Urea nitrogen/Creatinine [Mass ratio] 5.6 mg/mg Normal [facility] Comment on above: Performed By: #### C MP ####[facility] Wctkedpmfq2850[address] [place], [place] [address]Dr. Devin Kerwin CBC AUTO DIFFon 08-05-2022 BASO # 0.0 103/ul Normal 0.0-0.1 [facility] Comment on above: Performed By: #### C BC ####[facility] Pogvxjjdic2317[address] [place], [place] [address]Dr. Devin Suresh Basophils/100 WBC (Bld) 0.3 % Normal 0.2-2.0 [facility] Comment on above: Performed By: #### C BC ####[facility] Txesjqtjdd9[address] [place], [place] [address]Dr. Tishemily Suresh EO # 0.1 103/ul Normal 0.0-0.7 [facility] Comment on above: Performed By: #### C BC ####[facility] Ucbpqsvlyo9[address] [place], [place] [address]Dr. Tishemily Suresh Eosinophils/100 WBC (Bld) 1.7 % Normal 0.9-7.0 [facility] Comment on above: Performed By: #### C BC ####[facility] Tnfwtrvyxt6[address] [place], [place] [address]Dr. Tishemily Suresh Erythrocyte distribution width (RBC) [Ratio] 13.4 % Normal 11.0-15.0 [facility] Comment on above: Performed By: #### C BC ####[facility] Dlbkhgjxdj1926[address] [place], [place] [address]Dr. Devin Kerwin Hematocrit (Bld) [Volume fraction] 28.6 % Critically low 36.0-48.0 [facility] Comment on above: Performed By: #### C BC ####[facility] Vragpvcjle8926 [place] [address]Dr. Devin Suresh Hemoglobin (Bld) [Mass/Vol] 9.8 g/dL Critically low 12.0-16.0 [facility] Comment on above: Performed By: #### C BC ####[facility] Cdxfgkrmon0661 [place] [phone]. Devin Suresh IG # 0.04 10e3/ul Critically high 0.00-0.03 [facility] Comment on above: Performed By: #### C BC ####[facility] Icjoqwxhfw9546 [place] [phone]. Devin Suresh IG % 0.7 % Critically high 0.0-0.5 [facility] Comment on above: Performed By: #### C BC ####[facility] Bvwpkhjker5464 [place] [address]Dr. Devin Suresh LYMPH # 1.8 103/ul Normal 1.2-3.8 [facility] Comment on above: Performed By: #### C BC ####[facility] Guorvahbel9667 [place] [address]Dr. Devin Suresh Lymphocytes/100 WBC (Bld) 30.9 % Normal 20.5-60.0 [facility] Comment on above: Performed By: #### C BC ####[facility] Usoegixumz6007 [place] [address]Dr. Devin Suresh MANUAL DIFF REQ NO Normal [facility] Comment on above: Performed By: #### C BC ####[facility] Szaobnfxvh1054 [place] [address]Dr. Devin Suresh MCH (RBC) [Entitic mass] 30.0 pg Normal 26.7-34.0 [facility] Comment on above: Performed By: #### C BC ####[facility] Fqqqbsmlkr9394 [place] [address]Dr. Devin Suresh MCHC (RBC) [Mass/Vol] 34.3 g/dL Normal 29.9-35.2 [facility] Comment on above: Performed By: #### C BC ####[facility] Uucjctggwy4427 [place] [phone]. Devin Suresh MCV (RBC) [Entitic vol] 87.5 fL Normal 81.0-99.0 [facility] Comment on above: Performed By: #### C BC ####[facility] Nljkcxzmfp4304 [place] [address]Dr. Devin Suresh MONO # 0.3 103/ul Normal 0.3-0.8 [facility] Comment on above: Performed By: #### C BC ####[facility] Sjaoitnmxt7925 [place] [address]Dr. Devin Suresh Monocytes/100 WBC (Bld) 4.3 % Normal 1.7-12.0 [facility] Comment on above: Performed By: #### C BC ####[facility] Oruqweyvpb4459 [place] [address]Dr. Devin Suresh NEUT # 3.6 103/ul Normal 1.4-6.5 [facility] Comment on above: Performed By: #### C BC ####[facility] Djddbitpdi1621 [place] [address]Dr. Devin Suresh Neutrophils/100 WBC (Bld) 62.1 % Normal 43.0-75.0 [facility] Comment on above: Performed By: #### C BC ####[facility] Sawzjptisz98[address] [place], [place] [address]Dr. Devin Suresh Platelet mean volume (Bld) [Entitic vol] 8.5 fL Critically low 9.5-13.5 [facility] Comment on above: Performed By: #### C BC ####[facility] Hbqdjqwxhg11[address] [place], [place] [id number]. Deivn Suresh PLT 211 103/ul Normal 150-450 [facility] Comment on above: Performed By: #### C BC ####[facility] Jzpkbtmuuy43[address] [place], [place] [address]Dr. Devin Suresh RBC 3.27 106/ul Critically low 4.20-5.40 [facility] Comment on above: Performed By: #### C BC ####[facility] Jcranvdibf[address] [place], [place] [address]Dr. Devin Suresh WBC 5.9 103/ul Normal 4.0-11.0 [facility] Comment on above: Performed By: #### C BC ####[facility] Cmwszddtre0504 [place] [address]Dr. Devin Suresh CBC W MANUAL DIFFon 08-06-19 23 ANISOCYTOSIS 2+ Normal [facility] Comment on above: Performed By: #### C BCMAN ####[facility] Kcfpyfcfwc6739 [place] [address]Dr. Devin Suresh ATYPICAL LYMPH # Normal [facility] Comment on above: Performed By: #### C BCMAN ####[facility] Stlxakifff2567 [place] [address]Dr. Devin Suresh ATYPICAL LYMPH % Normal [facility] Comment on above: Performed By: #### C BCMAN ####[facility] Eglcacknjt5134 [place] [address]Dr. Devin Suresh BAND # 0.1 103/ul Normal 0.0-0.3 [facility] Comment on above: Performed By: #### C BCMAN ####[facility] Pfppqxzkaf9294 [place] [address]Dr. Devin Suresh BAND % 1 % Normal 0-5 [facility] Comment on above: Performed By: #### C BCMAN ####[facility] Jfahyfbjfn5815 [place] [address]Dr. Devin Suresh BASOM # 0.10 103/ul Normal 0.00-0.10 [facility] Comment on above: Performed By: #### C BCMAN ####[facility] Sxjwzprvzm2245 [place] [address]Dr. Devin Suresh BASOM % 2.0 % Normal 0.2-2.0 [facility] Comment on above: Performed By: #### C BCMAN ####[facility] Vzidzlqmmj5364 [place] [address]Dr. Devin Suresh BLAST # Normal [facility] Comment on above: Performed By: #### C BCMAN ####[facility] Ofcapgnqen4924 [place] [phone]. Devni Suresh BLAST % Normal [facility] Comment on above: Performed By: #### C BCMAN ####[facility] Qrntjbfhar7481 [place] [phone]. Devin Suresh CORRECTED WBC Normal 4.0-11.0 [facility] Comment on above: Performed By: #### C BCMAN ####[facility] Pzowkoignu8467 [place] [phone]. Devin Suresh EOS # 0.40 103/ul Normal 0.00-0.[address] [facility] Comment on above: Performed By: #### C BCMAN ####[facility] Fgcclkgbkc2341 [place] [address]Dr. Devin Suresh EOS% 8.0 % Critically high 0.9-7.0 [facility] Comment on above: Performed By: #### C BCMARLEE ####[facility] Wdxuyflrnn5167 [place] [address]Dr. Devin Suresh HCT 29.5 % Critically low 36.0-48.0 [facility] Comment on above: Performed By: #### C BCMARLEE ####[facility] Wzyfgcpqco17[address] [place], [place] [address]Dr. Devin Suresh HGB 10.0 g/dl Critically low 12.0-16.0 [facility] Comment on above: Performed By: #### C BCMARLEE ####[facility] Drrtolzsdc8970 [place] [phone]. Devin Suresh LYMPHM # 0.35 103/ul Critically low 1.20-3.80 [facility] Comment on above: Performed By: #### C BCMAN ####[facility] Yenrrjakky2406 [place] [phone]. Devin Suresh LYMPHM% 7.0 % Critically low 20.5-60.0 [facility] Comment on above: Performed By: #### C BCMAN ####[facility] Eciltvywal1502 [place] [phone]. Devin Suresh MCH 30.0 pg Normal 26.7-34.0 [facility] Comment on above: Performed By: #### C ELIE ####[facility] Biduifbgod7945 [place] [phone]. Devin Suresh MCHC 33.9 g/dl Normal 29.9-35.2 [facility] Comment on above: Performed By: #### C ELIE ####[facility] Alsmypcdqz9539 [place] [phone]. Devin Suresh MCV 88.6 fL Normal 81.0-99.[address] [facility] Comment on above: Performed By: #### C ELIE ####[facility] Owvmzsfuxm8477 [place] [phone]. Devin Suresh METAMYELOCYTE # 0.1 103/ul Normal [facility] Comment on above: Performed By: #### C ELIE ####[facility] Kzqaevvwkh6772 [place] [address]Dr. Devin Suresh METAMYELOCYTE % 2 % Normal [facility] Comment on above: Performed By: #### C ELIE ####[facility] Sytpxjtlsf3290 [place] [phone]. Devin Suresh MONOM# 0.05 103/ul Critically low 0.30-0.80 [facility] Comment on above: Performed By: #### C ELIE ####[facility] Xionywmyfc4021 [place] [address]Dr. Devin Suresh MONOM% 1.0 % Critically low 1.7-12.0 [facility] Comment on above: Performed By: #### C ELIE ####[facility] Swfxiyncwl6608 [place] [phone]. Devin Suresh MPV 8.5 fL Critically low 9.5-13.5 [facility] Comment on above: Performed By: #### C ELIE ####[facility] Acvlottnye6903 [place] [address]Dr. Devin Suresh MYELOCYTE # Normal [facility] Comment on above: Performed By: #### C ELIE ####[facility] Oqtuxiqsyz0502 [place] [address]Dr. Devin Suresh MYELOCYTE % Normal [facility] Comment on above: Performed By: #### C BCMARLEE ####[facility] Trrszkhbzk9874 [place] [phone]. Devin Suresh NRBC Normal [facility] Comment on above: Performed By: #### C BCMARLEE ####[facility] Vrcepomhth4656 [place] [phone]. Devin Suresh PLT 207 103/ul Normal 150-450 [facility] Comment on above: Performed By: #### C ELIE ####[facility] Jddpvglgbd5401 [place] [phone]. Devin Suresh POIKILOCYTOSIS 2+ Normal [facility] Comment on above: Performed By: #### C ELIE ####[facility] Nfwnhigkbf7215 [place] [phone]. Devin Suresh RBC 3.33 106/ul Critically low 4.20-5.40 [facility] Comment on above: Performed By: #### C ELIE ####[facility] Rtmrprwxhy9484 [place] [phone]. Devin Suresh RDW 13.3 % Normal 11.0-15.0 [facility] Comment on above: Performed By: #### C ELIE ####[facility] Dbdkabpifq6276 [place] [phone]. Devin Suresh SEG # 3.95 103/ul Normal 1.40-6.50 [facility] Comment on above: Performed By: #### C BCMARLEE ####[facility] Zfwjjvdcpy5307 [place] [phone]. Devin Suresh SEG % 79.0 % Critically high 43.0-75.0 [facility] Comment on above: Performed By: #### C BCMARLEE ####[facility] Favnfpyprp3842 [place] [phone]. Devin Suresh WBC 5.0 103/ul Normal 4.0-11.0 [facility] Comment on above: Performed By: #### C ELIE ####[facility] Nkxsiovqwm1562 [place] [address]Dr. Devin Suresh ECHOCARDIO M/2D COMPLETEon 0 08-05-2022 ECHOCARDIO M/2D COMPLETE Normal [facility] POINT OF CARE GLUCOSEon 07-23 Glucose [Mass/Vol] 151 mg/dL Critically high 74-106 [facility] Comment on above: Performed By: #### P OCGLUC ####[facility] Shfsmujhzg9087 [place] [address]Dr. Devin Suresh Glucose [Mass/Vol] 188 mg/dL Critically high 74-106 [facility] Comment on above: Performed By: #### P OCGLUC ####[facility] Gqtnsoibyi97[address] [place], [place] [address]Dr. Devin Suresh Glucose [Mass/Vol] 243 mg/dL Critically high -106 [facility] Comment on above: Performed By: #### P OCGLUC ####[facility] Bacybjtboo7946[address] [place], [place] [address]Dr. Devin Suresh Glucose [Mass/Vol] 259 mg/dL Critically high -106 [facility] Comment on above: Performed By: #### P OCGLUC ####[facility] Llxcbsgoos4932[address] [place], [place] [address]Dr. Devin Suresh PROF 14(COMP METB)on 023 Albumin [Mass/Vol] 3.1 g/dL Critically low 3.4-5.0 [facility] Comment on above: Performed By: #### C MP ####[facility] Vekhjxlxbu5759 [place] [address]Dr. Devin Suresh Albumin/Globulin [Mass ratio] 1.1 {ratio} Normal [facility] Comment on above: Performed By: #### C MP ####[facility] Tukjqvqeeh5[address] [place], [place] [address]Dr. Devin Suresh ALP [Catalytic activity/Vol] 86 U/L Normal 46-[address] [facility] Comment on above: Performed By: #### C MP ####[facility] Nfcpuclhqf3530[address] [place], [place] [address]Dr. Devin Suresh ALT [Catalytic activity/Vol] 12 U/L Critically low 14-[address] [facility] Comment on above: Performed By: #### C MP ####[facility] Rtbchqgvnz9726[address] [place], [place] [address]Dr. Tishemily Kerwin Anion gap [Moles/Vol] 13.2 mmol/L Normal [facility] Comment on above: Performed By: #### C MP ####[facility] Tonbrlnvsv6158[address] [place], [place] [address]Dr. Devin Suresh AST [Catalytic activity/Vol] 13 U/L Critically low 15-[address] [facility] Comment on above: Performed By: #### C MP ####[facility] Kpsyusstwu346[address] [place], [place] [address]Dr. Devin Suresh Bilirubin [Mass/Vol] 0.4 mg/dL Normal 0.2-1.[address] [facility] Comment on above: Performed By: #### C MP ####[facility] Uhotimmdsk8326[address] [place], [place] [address]Dr. Devin Suresh Calcium [Mass/Vol] 8.0 mg/dL Critically low 8.5-10.1 [facility] Comment on above: Performed By: #### C MP ####[facility] Shnlwjjhan1920[address] [place], [place] [address]Dr. Devin Suresh Chloride [Moles/Vol] 108 mmol/L Critically high 98-[address] [facility] Comment on above: Performed By: #### C MP ####[facility] Civzivgjbi9070[address] [place], [place] [address]Dr. Devin Suresh CO2 [Moles/Vol] 21.3 mmol/L Normal 21.0-32.0 [facility] Comment on above: Performed By: #### C MP ####[facility] Wmlnqppelj[address] [place], [place] [address]Dr. Devin Suresh Creatinine [Mass/Vol] 0.76 mg/dL Normal 0.55-1.[address] [facility] Comment on above: Performed By: #### C MP ####[facility] Tyseclrisk[address] [place], [place] [address]Dr. Devin Suresh EGFR-AF ARMENIAN >60 Normal >=60 [facility] Comment on above: Performed By: #### C MP ####[facility] Uzclkrbzzv8997 [place] [phone]. Devin Suresh EGFR-NON AF ARMENIAN >60 Normal >=[address] [facility] Comment on above: Performed By: #### C MP ####[facility] Gtvqdzjnle3028 [place] [phone]. Devin Suresh Globulin (S) [Mass/Vol] 2.8 g/dL Normal [facility] Comment on above: Performed By: #### C MP ####[facility] Fcsvywxrgd3726 [place] [phone]. Devin Suresh Glucose [Mass/Vol] 235 mg/dL Critically high 74-106 [facility] Comment on above: Performed By: #### C MP ####[facility] Fazxpguqka4287 [place] [phone]. Devin Suresh Potassium [Moles/Vol] 3.5 mmol/L Normal 3.5-5.[address] [facility] Comment on above: Performed By: #### C MP ####[facility] Dbdfamepvf1792 [place] [phone]. Devin Suresh Protein [Mass/Vol] 5.9 g/dL Critically low 6.4-8.2 [facility] Comment on above: Performed By: #### C MP ####[facility] Qhgugfwvov4930 [place] [phone]. Devin Suresh Sodium [Moles/Vol] 139 mmol/L Normal 136-145 [facility] Comment on above: Performed By: #### C MP ####[facility] Daostmgglg3523 [place] [phone]. Devin Suresh Urea nitrogen [Mass/Vol] 4.0 mg/dL Critically low 7.0-18.[address] [facility] Comment on above: Performed By: #### C MP ####[facility] Gkftcjisey3702 [place] [phone]. Devin Kerwin Urea nitrogen/Creatinine [Mass ratio] 5.3 mg/mg Normal [facility] Comment on above: Performed By: #### C MP ####[facility] Bktnxelnaz9205 [place] [phone]. Devin Suresh TROPONIN, HIGH SENSITIVITYon 08-05-2022 HSTROP 5.5 pg/mL Normal 4.0-51.[address] [facility] Comment on above: Result Comment: CUT- OFF POINTS HAVE BEEN ESTABLISHED BASED ON THE FOURTH UNIVERSAL DEFINITIONS OF MYOCARDIALINFARCTION. THE UPPER REFERENCE LIMIT (URL) OF TROPONIN, DEFINED THE 99TH PERCENTILE OFcTnI DISTRIBUTION IN A REFERENCE POPULATION, HAS BEEN CONFIRMED THE DECISION THRESHOLDFOR DC DIAGNOSIS. Performed By: #### H STROPN ####[facility] Kefbjbjvnh2492 [place] [address]Dr. Devin Suresh HSTROP 7.5 pg/mL Normal 4.0-51.[address] [facility] Comment on above: Result Comment: CUT- OFF POINTS HAVE BEEN ESTABLISHED BASED ON THE FOURTH UNIVERSAL DEFINITIONS OF MYOCARDIALINFARCTION. THE UPPER REFERENCE LIMIT (URL) OF TROPONIN, DEFINED THE 99TH PERCENTILE OFcTnI DISTRIBUTION IN A REFERENCE POPULATION, HAS BEEN CONFIRMED THE DECISION THRESHOLDFOR DC DIAGNOSIS. Performed By: #### H STROPN ####[facility] Uhedfpiajt2348 [place] [address]Dr. Devin Suresh HSTROP 6.9 pg/mL Normal 4.0-51.[address] [facility] Comment on above: Result Comment: CUT- OFF POINTS HAVE BEEN ESTABLISHED BASED ON THE [facility] UNIVERSAL DEFINITIONS OF MYOCARDIALINFARCTION. THE UPPER REFERENCE LIMIT (URL) OF TROPONIN, DEFINED THE 99TH PERCENTILE OFcTnI DISTRIBUTION IN A REFERENCE POPULATION, HAS BEEN CONFIRMED THE DECISION THRESHOLDFOR DC DIAGNOSIS. Performed By: #### H STROPN ####[facility] Bncsjgnpth1923 [place] [phone]. Devin Suresh CBC AUTO DIFFon 08-04-2022 BASO # 0.0 103/ul Normal 0.0-0.[address] [facility] Comment on above: Performed By: #### C BC ####[facility] Ssascpcqbs3892 [place] [phone]. Devin Kerwin Basophils/100 WBC (Bld) 0.4 % Normal 0.2-2.[address] [facility] Comment on above: Performed By: #### C BC ####[facility] Spncpsqceq05[address] [place], [place] [address]Dr. Tishemily Suresh EO # 0.1 103/ul Normal 0.0-0.7 [facility] Comment on above: Performed By: #### C BC ####[facility] Reiqhxslml66[address] [place], [place] [address]Dr. Devin Suresh Eosinophils/100 WBC (Bld) 2.3 % Normal 0.9-7.[address] [facility] Comment on above: Performed By: #### C BC ####[facility] Dbnrgypcan7794[address] [place], [place] [address]Dr. Devin Suresh Erythrocyte distribution width (RBC) [Ratio] 13.8 % Normal 11.0-15.0 [facility] Comment on above: Performed By: #### C BC ####[facility] Gnleozzghf225[address] [place], [place] [address]Dr. Devin Suresh Hematocrit (Bld) [Volume fraction] 29.6 % Critically low 36.0-48.[address] [facility] Comment on above: Performed By: #### C BC ####[facility] Nkxhjemfrz7335[address] [place], [place] [address]Dr. Tishemily Suresh Hemoglobin (Bld) [Mass/Vol] 10.0 g/dL Critically low 12.0-16.0 [facility] Comment on above: Performed By: #### C BC ####[facility] Srwmptcxpg45[address] [place], [place] [address]Dr. Devin Suresh IG # 0.02 10e3/ul Normal 0.00-0.03 [facility] Comment on above: Performed By: #### C BC ####[facility] Rsoqprdhvi303[address] [place], [place] [address]Dr. Devin Suresh IG % 0.4 % Normal 0.0-0.5 [facility] Comment on above: Performed By: #### C BC ####[facility] Nrfhaflfpo57[address] [place], [place] [address]Dr. Devin Suresh LYMPH # 2.4 103/ul Normal 1.2-3.[address] [facility] Comment on above: Performed By: #### C BC ####[facility] Kadrjzdwre9824 [place] [address]Dr. Devin Suresh Lymphocytes/100 WBC (Bld) 46.2 % Normal 20.5-60.[address] [facility] Comment on above: Performed By: #### C BC ####[facility] Lnjvksbnrs7957 [place] [address]Dr. Devin Suresh MANUAL DIFF REQ NO Normal [facility] Comment on above: Performed By: #### C BC ####[facility] Aszefhhdpq8710 [place] [address]Dr. Devin Suresh MCH (RBC) [Entitic mass] 30.7 pg Normal 26.7-34.[address] [facility] Comment on above: Performed By: #### C BC ####[facility] Ecsicwarrn[address] [place], [place] [address]Dr. Devin Suresh MCHC (RBC) [Mass/Vol] 33.8 g/dL Normal 29.9-35.[address] [facility] Comment on above: Performed By: #### C BC ####[facility] Xvifzsxslh28[address] [place], [place] [address]Dr. Devin Suresh MCV (RBC) [Entitic vol] 90.8 fL Normal 81.0-99.0 [facility] Comment on above: Performed By: #### C BC ####[facility] Oazcdyrlwc14[address] [place], [place] [address]Dr. Devin Suresh MONO # 0.4 103/ul Normal 0.3-0.8 [facility] Comment on above: Performed By: #### C BC ####[facility] Ehmbguucrd[address] [place], [place] [address]Dr. Devin Suresh Monocytes/100 WBC (Bld) 7.6 % Normal 1.7-12.0 [facility] Comment on above: Performed By: #### C BC ####[facility] Gixdukbhiq74[address] [place], [place] [address]DrMaris Suresh NEUT # 2.2 103/ul Normal 1.4-6.[address] [facility] Comment on above: Performed By: #### C BC ####[facility] Hiobyqefdt7961 [place] [address]Dr. Devin Suresh Neutrophils/100 WBC (Bld) 43.1 % Normal 43.0-75.[address] [facility] Comment on above: Performed By: #### C BC ####[facility] Zgabipnuca9596 [place] [phone]. Devin Suresh Platelet mean volume (Bld) [Entitic vol] 8.7 fL Critically low 9.5-13.[address] [facility] Comment on above: Performed By: #### C BC ####[facility] Nvkpznkrxk4899 [place] [address]Dr. Devin Suresh PLT 188 103/ul Normal 150-[address] [facility] Comment on above: Performed By: #### C BC ####[facility] Wkbzcpajum7452 [place] [address]Dr. Devin Suresh RBC 3.26 106/ul Critically low 4.20-5.40 [facility] Comment on above: Performed By: #### C BC ####[facility] Gcgvfrmbdt0880 [place] [phone]. Devin Suresh WBC 5.1 103/ul Normal 4.0-11.[address] [facility] Comment on above: Performed By: #### C BC ####[facility] Jtjmbfgmqp4700 [place] [phone]. Devin Suresh POINT OF CARE GLUCOSEon 07-23 Glucose [Mass/Vol] 129 mg/dL Critically high 74-106 [facility] Comment on above: Performed By: #### P OCGLUC ####[facility] Biipyttpws9217 [place] [address]Dr. Devin Suresh Glucose [Mass/Vol] 157 mg/dL Critically high 74-106 [facility] [facility] Comment on above: Performed By: #### P OCGLUC ####[facility] Nvicmxtqlq[address] [place] [id number]. Devin Kerwin Glucose [Mass/Vol] 228 mg/dL Critically high 74-106 [facility] Comment on above: Performed By: #### P OCGLUC ####[facility] Fqsadagtgk[address] [place] [address]Dr. Devin Suresh Glucose [Mass/Vol] 327 mg/dL Critically high 74-106 [facility] Comment on above: Performed By: #### P OCGLUC ####[facility] Rximqzsopj[address] [place], [place] [address]Dr. Devin Suresh PROF 14(COMP METB)on 023 Albumin [Mass/Vol] 2.9 g/dL Critically low 3.4-5.0 [facility] Comment on above: Performed By: #### C MP ####[facility] Gkmphvxkzx[address] [place], [place] [address]Dr. Devin Suresh Albumin/Globulin [Mass ratio] 1.1 {ratio} Normal [facility] Comment on above: Performed By: #### C MP ####[facility] Gcjpchtboq[address] [place], [place] [address]Dr. Devin Suresh ALP [Catalytic activity/Vol] 85 U/L Normal 46-[address] [facility] Comment on above: Performed By: #### C MP ####[facility] Shkdnidtju3325[address] [place], [place] [address]Dr. Devin Suresh ALT [Catalytic activity/Vol] 14 U/L Normal 14-[address] [facility] Comment on above: Performed By: #### C MP ####[facility] Aoxwjzfdqr[address]01[address] [place], [place] [address]Dr. Devin Suresh Anion gap [Moles/Vol] 13.3 mmol/L Normal [facility] Comment on above: Performed By: #### C MP ####[facility] Grljaqajbz9[address] [place], [place] [address]Dr. Devin Suresh AST [Catalytic activity/Vol] 11 U/L Critically low 15-[address] [facility] Comment on above: Performed By: #### C MP ####[facility] Yrtaljopgg5[address] [place], [place] [address]Dr. Devin Suresh Bilirubin [Mass/Vol] 0.2 mg/dL Normal 0.2-1.[address] [facility] Comment on above: Performed By: #### C MP ####[facility] L[address]rkiijvf[address] [place] [address]Dr. Tishemily Kerwin Calcium [Mass/Vol] 7.5 mg/dL Critically low 8.5-10.1 [facility] Comment on above: Performed By: #### C MP ####[facility] Hpwaibldcy5[address] [place] [address]Dr. Devin Suresh Chloride [Moles/Vol] 109 mmol/L Critically high 98-[address] [facility] Comment on above: Performed By: #### C MP ####[facility] Ajbapualws9[address] [place], [place] [address]Dr. Devin Suresh CO2 [Moles/Vol] 21.6 mmol/L Normal 21.0-32.0 [facility] Comment on above: Performed By: #### C MP ####[facility] Fvxriylpjb[address] [place], [place] [address]Dr. Devin Suresh Creatinine [Mass/Vol] 1.15 mg/dL Critically high 0.55-1.[address] [facility] Comment on above: Performed By: #### C MP ####[facility] Gkeqhajgww4926[address] [place], [place] [address]Dr. Tishemily Kerwin EGFR-AF ARMENIAN >60 Normal >=60 [facility] Comment on above: Performed By: #### C MP ####[facility] Boregeiqqx7318[address] [place], [place] [address]Dr. Devin Suresh EGFR-NON AF ARMENIAN 51 mL/min/1.73m2 Critically low >=[address] [facility] Comment on above: Performed By: #### C MP ####[facility] Biacumbang4540[address] [place], [place] [address]Dr. Devin Suresh Globulin (S) [Mass/Vol] 2.6 g/dL Normal [facility] Comment on above: Performed By: #### C MP ####[facility] Ckxcvnqxbt87[address] [place] [id number]. Devin Suresh Glucose [Mass/Vol] 268 mg/dL Critically high 74-106 [facility] Comment on above: Performed By: #### C MP ####[facility] Bjnnxsrbhp37[address] [place] [address]Dr. Devin Kerwin Potassium [Moles/Vol] 3.9 mmol/L Normal 3.5-5.[address] [facility] Comment on above: Performed By: #### C MP ####[facility] Couslfcbvz[address] [place] [address]Dr. Devin Kerwin Protein [Mass/Vol] 5.5 g/dL Critically low 6.4-8.2 Th [facility] Comment on above: Performed By: #### C MP ####[facility] Abuxcoxtrz8047[address] [place], [place] [address]Dr. Tishemily Suresh Sodium [Moles/Vol] 140 mmol/L Normal 136-145 [facility] Comment on above: Performed By: #### C MP ####[facility] Pcgrtubthx032[address] [place], [place] [address]Dr. Tishemily Suresh Urea nitrogen [Mass/Vol] 13.0 mg/dL Normal 7.0-18.[address] [facility] Comment on above: Performed By: #### C MP ####[facility] Rrnwcyhidq092[address] [place], [place] [address]Dr. Devin Kerwin Urea nitrogen/Creatinine [Mass ratio] 11.3 mg/mg Normal [facility] Comment on above: Performed By: #### C MP ####[facility] Clulkuerhl2707[address] [place], [place] [address]Dr. Devin Suresh CBC AUTO DIFFon 08-03-2022 BASO # 0.0 103/ul Normal 0.0-0.[address] [facility] Comment on above: Performed By: #### C BC ####[facility] Kkxrqklujm4828[address] [place], [place] [address]Dr. Devin Suresh Basophils/100 WBC (Bld) 0.6 % Normal 0.2-2.[address] [facility] Comment on above: Performed By: #### C BC ####[facility] Wcmmhwkdrq[address] [place], [place] [address]Dr. Devin Suresh EO # 0.1 103/ul Normal 0.0-0.7 [facility] Comment on above: Performed By: #### C BC ####[facility] Bhvjeczacb[address] [place] [address]Dr. Devin Kerwin Eosinophils/100 WBC (Bld) 3.1 % Normal 0.9-7.0 [facility] Comment on above: Performed By: #### C BC ####[facility] Qgcdaexvvq4511[address] [place], [place] [address]Dr. Devin Suresh Erythrocyte distribution width (RBC) [Ratio] 13.6 % Normal 11.0-15.0 [facility] Comment on above: Performed By: #### C BC ####[facility] Fmikybfrxu2227[address] [place], [place] [address]Dr. Devin Suresh Hematocrit (Bld) [Volume fraction] 27.8 % Critically low 36.0-48.0 [facility] Comment on above: Performed By: #### C BC ####[facility] Buywranrwm[address] [place], [place] [address]Dr. Devin Suresh Hemoglobin (Bld) [Mass/Vol] 9.6 g/dL Critically low 12.0-16.0 [facility] Comment on above: Performed By: #### C BC ####[facility] Pqzuigyjml[address] [place], [place] [address]Dr. Devin Suresh IG # 0.01 10e3/ul Normal 0.00-0.03 [facility] Comment on above: Performed By: #### C BC ####[facility] Sqwdtmffos[address] [place], [place] [address]Dr. Devin Suresh IG % 0.3 % Normal 0.0-0.5 [facility] Comment on above: Performed By: #### C BC ####[facility] Asgmeoszui4059[address] [place], [place] [address]Dr. Devin Suresh LYMPH # 1.5 103/ul Normal 1.2-3.8 [facility] Comment on above: Performed By: #### C BC ####[facility] Ppbwbqhnso260[address] [place], [place] [address]Dr. Devin Suresh Lymphocytes/100 WBC (Bld) 41.2 % Normal 20.5-60.0 [facility] Comment on above: Performed By: #### C BC ####[facility] R[address]vyuowns13[address] [place] [address]Dr. Devin Suresh MANUAL DIFF REQ NO Normal [facility] Comment on above: Performed By: #### C BC ####[facility] Acdjaubtje86[address] [place] [address]Dr. Devin Suresh MCH (RBC) [Entitic mass] 31.0 pg Normal 26.7-34.0 [facility] Comment on above: Performed By: #### C BC ####[facility] Iozfesbkrb6914[address] [place], [place] [address]Dr. Devin Suresh MCHC (RBC) [Mass/Vol] 34.5 g/dL Normal 29.9-35.2 [facility] Comment on above: Performed By: #### C BC ####[facility] Radqfrpqgu5414[address] [place], [place] [address]Dr. Devin Suresh MCV (RBC) [Entitic vol] 89.7 fL Normal 81.0-99.0 [facility] Comment on above: Performed By: #### C BC ####[facility] Awbcmuktld4599[address] [place], [place] [address]Dr. Devin Suresh MONO # 0.4 103/ul Normal 0.3-0.8 [facility] Comment on above: Performed By: #### C BC ####[facility] Frvsbzctma2235[address] [place], [place] [address]Dr. Tishemily Suresh Monocytes/100 WBC (Bld) 10.0 % Normal 1.7-12.0 [facility] Comment on above: Performed By: #### C BC ####[facility] Zkytlwqkmt6880[address] [place], [place] [address]Dr. Devin Suresh NEUT # 1.6 103/ul Normal 1.4-6.5 [facility] Comment on above: Performed By: #### C BC ####[facility] Vfzlwfiwte9[address] [place], [place] [address]Dr. Devin Suresh Neutrophils/100 WBC (Bld) 44.8 % Normal 43.0-75.0 [facility] Comment on above: Performed By: #### C BC ####[facility] Qrcwlvovrs019[address] [place], [place] [address]Dr. Devin Suresh Platelet mean volume (Bld) [Entitic vol] 8.7 fL Critically low 9.5-13.5 [facility] Comment on above: Performed By: #### C BC ####[facility] Npirclnvac912[address] [place], [place] [address]Dr. Devin Suresh PLT 185 103/ul Normal 150-450 [facility] Comment on above: Performed By: #### C BC ####[facility] Rtnomauded8557[address] [place], [place] [address]Dr. Devin Suresh RBC 3.10 106/ul Critically low 4.20-5.40 [facility] Comment on above: Performed By: #### C BC ####[facility] Ngulmvvewl3159[address] [place], [place] [address]Dr. Devin Suresh WBC 3.6 103/ul Critically low 4.0-11.0 [facility] Comment on above: Performed By: #### C BC ####[facility] Cjuvjctxdq9747[address] [place], [place] [address]DrMaris Suresh GI PANEL (PCR)on 08-03-2022 Adenovirus F 40/41 Not detected Normal NOT DETECTED [facility] Comment on above: Performed By: #### G IPANEL ####[facility] Rplajsyvln9943[address] [place], [place] [address]Dr. Devin Suresh Astrovirus Not detected Normal NOT DETECTED [facility] Comment on above: Performed By: #### G IPANEL ####[facility] Fdfnakimqe3767[address] [place], [place] [address]Dr. Devin Suresh C. Diff toxin A/B Not detected Normal NOT DETECTED [facility] Comment on above: Performed By: #### G IPANEL ####[facility] Owqdcdvhiv2907[address] [place], [place] [address]Dr. Devin Suresh Campylobacter Not detected Normal NOT DETECTED [facility] Comment on above: Performed By: #### G IPANEL ####[facility] Pfpgeeryha2275[address] [place], [place] [address]Dr. Devin Suresh Cryptosporidium Not detected Normal NOT DETECTED [facility] Comment on above: Performed By: #### G IPANEL ####[facility] Tfasyhdrgl5711[address] [place], [place] [address]Dr. Devin Suresh Cyclos. Cayetanensis Not detected Normal NOT DETECTED [facility] Comment on above: Performed By: #### G IPANEL ####[facility] Iqdsgtcroe3705[address] [place], [place] [address]Dr. iTshemily Suresh E. Coli O157 Not Applicable Normal Not Applicable [facility] Comment on above: Performed By: #### G IPANEL ####[facility] Ohbpwdztie9901[address] [place], [place] [address]Dr. Devin Suresh E. histolytica Not detected Normal NOT DETECTED [facility] Comment on above: Performed By: #### G IPANEL ####[facility] Zszhnpecry[address] [place], [place] [address]Dr. Devin Suresh EAEC Not detected Normal NOT DETECTED [facility] Comment on above: Performed By: #### G IPANEL ####[facility] Clnjaysbma[address] [place], [place] [address]Dr. Devin Suresh EIEC Not detected Normal NOT DETECTED [facility] Comment on above: Performed By: #### G IPANEL ####[facility] Vzjtcbiwbd8[address] [place], [place] [address]Dr. Devin Suresh EPEC Not detected Normal NOT DETECTED [facility] Comment on above: Performed By: #### G IPANEL ####[facility] Nqifysbqkg9204[address] [place], [place] [address]Dr. Tishemily Suresh ETEC Not detected Normal NOT DETECTED [facility] Comment on above: Performed By: #### G IPANEL ####[facility] Vafmxmzuyg9575[address] [place], [place] [address]Dr. Tishemily Suresh G. Lamblia Not detected Normal NOT DETECTED [facility] Comment on above: Performed By: #### G IPANEL ####[facility] Bayayfcjap99[address] [place], [place] [address]Dr. Devin GUTIERREZANEL CONTROLS PASSED Normal [facility] Comment on above: Performed By: #### G IPANEL ####[facility] Cl[address]pgp[address] [place] [address]Dr. Tishemily Kerwin GUTIERREZ EVIN HEADER GI PANEL BACTERIA Normal [facility] Comment on above: Performed By: #### G IPANEL ####[facility] Jallvmouzs7934 [place] [phone]. Devin GUTIERREZHD ECOLI GI PANEL DIARRHEAGEN IC E.COLI / SHIGELLA Normal [facility] Comment on above: Performed By: #### G IPANEL ####[facility] Xurusdfxoc7476[address] [place], [place] [address]Dr. Devin Kerwin GUTIERREZHD INFO SEE BELOW Normal [facility] Comment on above: Result Comment: EAEC - Enteroaggregative E. Coli EPEC- Enteropathogenic E. Coli ETEC- Enterotoxigenic E. Coli lt/st STEC- Shigella-like toxin-producing E. Coli stx1/stx2 EIEC- Shigella/Enteroinvasive E. Coli Performed By: #### G IPANEL ####[facility] Pspaxjpzij0615[address] [place], [place] [address]Dr. Devin Suresh GIPNLHD PARASITES GI PANEL PARASITES Normal [facility] Comment on above: Performed By: #### G IPANEL ####[facility] Rgubkcyhaq7376[address] [place], [place] [address]Dr. Devin GUTIERREZNLHD VIRUS GI PANEL VIRUSES Normal [facility] Comment on above: Performed By: #### G IPANEL ####[facility] Rrfucphftd6[address] [place], [place] [address]Dr. Devin Suresh Norovirus GI/GII Not detected Normal NOT DETECTED [facility] Comment on above: Performed By: #### G IPANEL ####[facility] Lagxpooxit0410[address] [place], [place] [address]Dr. Devin Suresh P. Shigelloides Not detected Normal NOT DETECTED [facility] Comment on above: Performed By: #### G IPANEL ####[facility] Nejtdwvzjn8959[address] [place], [place] [address]Dr. Devin Suresh Rotavirus A Not detected Normal NOT DETECTED [facility] Comment on above: Performed By: #### G IPANEL ####[facility] Xfiyxjpnba4515[address] [place], [place] [address]Dr. Devin Suresh Salmonella Not detected Normal NOT DETECTED [facility] Comment on above: Performed By: #### G IPANEL ####[facility] Zpimoexzwv1596[address] [place], [place] [address]Dr. Devin Suresh Sapovirus Not detected Normal NOT DETECTED [facility] Comment on above: Performed By: #### G IPANEL ####[facility] Gibhxhzkwj9253[address] [place], [place] [address]Dr. Devin Suresh STEC Not detected Normal NOT DETECTED [facility] Comment on above: Performed By: #### G IPANEL ####[facility] Obanlechfc[address] [place], [place] [address]Dr. Devin Suresh Vibrio Not detected Normal NOT DETECTED [facility] Comment on above: Performed By: #### G IPANEL ####[facility] Fwfdrsoabl4665[address] [place], [place] [address]Dr. Devin Suresh Vibrio Cholera Not detected Normal NOT DETECTED [facility] Comment on above: Performed By: #### G IPANEL ####[facility] Fmcttbvakg2030[address] [place], [place] [address]Dr. Devin Suresh Y. Enterocolitica Not detected Normal NOT DETECTED [facility] Comment on above: Performed By: #### G IPANEL ####[facility] Dnxrdxpbad799[address] [place], [place] [address]Dr. Devin Suresh POINT OF CARE GLUCOSEon 07-23 Glucose [Mass/Vol] 199 mg/dL Critically high 74-106 [facility] Comment on above: Performed By: #### P OCGLUC ####[facility] Xjsdokdzvz1278[address] [place], [place] [address]Dr. Devin Suresh Glucose [Mass/Vol] 193 mg/dL Critically high 74-106 [facility] Comment on above: Performed By: #### P OCGLUC ####[facility] Casbfqcqnb1708[address] [place], [place] [address]Dr. Devin Suresh Glucose [Mass/Vol] 276 mg/dL Critically high 74-106 [facility] Comment on above: Performed By: #### P OCGLUC ####[facility] Kdphnabbcq[address] [place], [place] [address]Dr. Devin Suresh PROF 14(COMP METB)on 023 Albumin [Mass/Vol] 2.8 g/dL Critically low 3.4-5.0 [facility] Comment on above: Performed By: #### C MP ####[facility] Aqdicjuhox23[address] [place] [address]Dr. Devin Suresh Albumin/Globulin [Mass ratio] 1.1 {ratio} Normal [facility] Comment on above: Performed By: #### C MP ####[facility] Ncxtcbhbyg468[address] [place], [place] [address]Dr. Devin Suresh ALP [Catalytic activity/Vol] 85 U/L Normal 46-[address] [facility] Comment on above: Performed By: #### C MP ####[facility] Mxmnuzecel9[address] [place], [place] [address]Dr. Devin Suresh ALT [Catalytic activity/Vol] 13 U/L Critically low 14-[address] [facility] Comment on above: Performed By: #### C MP ####[facility] Etheokjpdw8329[address] [place], [place] [address]Dr. Devin Suresh Anion gap [Moles/Vol] 10.2 mmol/L Normal [facility] Comment on above: Performed By: #### C MP ####[facility] Bihnwyvsdw[address] [place], [place] [address]Dr. Devin Suresh AST [Catalytic activity/Vol] 12 U/L Critically low 15-[address] [facility] Comment on above: Performed By: #### C MP ####[facility] Yvnogvonrm7209[address] [place], [place] [address]Dr. Devin Suresh Bilirubin [Mass/Vol] 0.3 mg/dL Normal 0.2-1.[address] [facility] Comment on above: Performed By: #### C MP ####[facility] Gianfiazhk[address] [place], [place] [address]Dr. Devin Suresh Calcium [Mass/Vol] 7.4 mg/dL Critically low 8.5-10.1 [facility] Comment on above: Performed By: #### C MP ####[facility] Sxlihlziwk[address] [place] [address]Dr. Devin Suresh Chloride [Moles/Vol] 107 mmol/L Normal 98-[address] [facility] Comment on above: Performed By: #### C MP ####[facility] Tvptjranpf99[address] [place] [address]Dr. Devin Suresh CO2 [Moles/Vol] 23.4 mmol/L Normal 21.0-32.0 [facility] Comment on above: Performed By: #### C MP ####[facility] Pldehxwxth15[address] [place] [address]Dr. Devin Suresh Creatinine [Mass/Vol] 1.23 mg/dL Critically high 0.55-1.[address] [facility] Comment on above: Performed By: #### C MP ####[facility] Zrysyjermf[address] [place] [address]Dr. Devin Kerwin EGFR-AF ARMENIAN 57 mL/min/1.73m2 Critically low >=[address] [facility] Comment on above: Performed By: #### C MP ####[facility] Bfnveoottw[address] [place] [address]Dr. Devin Suresh EGFR-NON AF ARMENIAN 47 mL/min/1.73m2 Critically low >=60 [facility] Comment on above: Performed By: #### C MP ####[facility] Lqvufrhafu20[address] [place] [address]Dr. Devin Kerwin Globulin (S) [Mass/Vol] 2.5 g/dL Normal [facility] Comment on above: Performed By: #### C MP ####[facility] Psauknzbwl23[address] [place] [address]Dr. Devin Kerwin Glucose [Mass/Vol] 284 mg/dL Critically high 74-106 [facility] Comment on above: Performed By: #### C MP ####[facility] Atoribgcal[address] [place] [address]Dr. Devin Suresh Potassium [Moles/Vol] 3.6 mmol/L Normal 3.5-5.[address] [facility] Comment on above: Performed By: #### C MP ####[facility] Ahvamiacrl[address] [place] [address]Dr. Devin Suresh Protein [Mass/Vol] 5.3 g/dL Critically low 6.4-8.2 [facility] Comment on above: Performed By: #### C MP ####[facility] Mruibaxnfo96[address] [place] [address]Dr. Devin Suresh Sodium [Moles/Vol] 137 mmol/L Normal 136-145 [facility] Comment on above: Performed By: #### C MP ####[facility] Pzcgnaysil6[address] [place] [address]Dr. Devin Suresh Urea nitrogen [Mass/Vol] 14.0 mg/dL Normal 7.0-18.[address] [facility] Comment on above: Performed By: #### C MP ####[facility] Crzcxlndaw9598 [place] [address]Dr. Devin Suresh Urea nitrogen/Creatinine [Mass ratio] 11.4 mg/mg Normal [facility] Comment on above: Performed By: #### C MP ####[facility] Jxoemvvxhp750[address] [place] [address]Dr. Devin Suresh BNPon 08-02-2022 Natriuretic peptide B (Bld) [Mass/Vol] 84.0 pg/mL Normal <=450.[address] [facility] Comment on above: Performed By: #### C MADM, CMP, BNP, CRP ####[facility] Jbkzwecryz[address] [place] [address]Dr. Devin Suresh CARDIAC LAURA ADMITon 023 CK [Catalytic activity/Vol] 46 U/L Normal 26-[address] [facility] Comment on above: Performed By: #### C MADM, CMP, BNP, CRP ####[facility] Jzixagqjeb4[address] [place] [address]Dr. Devin Suresh CK.MB [Mass/Vol] ng/mL Normal <=3.60 [facility] Comment on above: Performed By: #### C MADM, CMP, BNP, CRP ####[facility] Oncjrdjfln4[address] [place] [address]Dr. Devin Suresh HSTROP 6.5 pg/mL Normal 4.0-51.3 [facility] Comment on above: Result Comment: CUT- OFF POINTS HAVE BEEN ESTABLISHED BASED ON THE FOURTH UNIVERSAL DEFINITIONS OF MYOCARDIALINFARCTION. THE UPPER REFERENCE LIMIT (URL) OF TROPONIN, DEFINED THE 99TH PERCENTILE OFcTnI DISTRIBUTION IN A REFERENCE POPULATION, HAS BEEN CONFIRMED THE DECISION THRESHOLDFOR DC DIAGNOSIS. Performed By: #### C MADM, CMP, BNP, CRP ####[facility] Sedcbxttif56[address] [place] [address]Dr. Devin Suresh MELANIE 75 ng/mL Normal 9-82 [facility] Comment on above: Performed By: #### C MADM, CMP, BNP, CRP ####[facility] Hgdgrmuahw[address] [place], [place] [address]Dr. Devin Suresh CBC AUTO DIFFon 08-02-2022 BASO # 0.0 103/ul Normal 0.0-0.1 [facility] Comment on above: Performed By: #### C BC ####[facility] Atxqgahzim54[address] [place], [place] [address]Dr. Devin Suresh Basophils/100 WBC (Bld) 0.4 % Normal 0.2-2.0 [facility] Comment on above: Performed By: #### C BC ####[facility] Znptelxaop1465[address] [place], [place] [address]Dr. Devin Suresh EO # 0.1 103/ul Normal 0.0-0.7 [facility] Comment on above: Performed By: #### C BC ####[facility] Ikqgruueoo[address] [place], [place] [address]Dr. Devin Suresh Eosinophils/100 WBC (Bld) 1.4 % Normal 0.9-7.0 [facility] Comment on above: Performed By: #### C BC ####[facility] Xlmgbzkgkl0740[address] [place], [place] [address]Dr. Devin Suresh Erythrocyte distribution width (RBC) [Ratio] 13.3 % Normal 11.0-15.[address] [facility] Comment on above: Performed By: #### C BC ####[facility] Oqfstqoxif5[address] [place] [address]Dr. Devin Suresh Hematocrit (Bld) [Volume fraction] 33.4 % Critically low 36.0-48.[address] [facility] Comment on above: Performed By: #### C BC ####[facility] Hvyfzhejpq[address] [place], [place] [address]Dr. Devin Suresh Hemoglobin (Bld) [Mass/Vol] 11.6 g/dL Critically low 12.0-16.[address] [facility] Comment on above: Performed By: #### C BC ####[facility] Oncomrrima7[address] [place], [place] [address]Dr. Devin Suresh IG # 0.01 10e3/ul Normal 0.00-0.[address] [facility] Comment on above: Performed By: #### C BC ####[facility] Wpnkyxhmld3199[address] [place], [place] [address]Dr. Tishemily Suresh IG % 0.2 % Normal 0.0-0.[address] [facility] Comment on above: Performed By: #### C BC ####[facility] Plllgyypip[address] [place], [place] [address]Dr. Devin Suresh LYMPH # 1.3 103/ul Normal 1.2-3.[address] [facility] Comment on above: Performed By: #### C BC ####[facility] Crcjbdmcyz[address] [place], [place] [address]Dr. Devin Kerwin Lymphocytes/100 WBC (Bld) 24.5 % Normal 20.5-60.0 [facility] Comment on above: Performed By: #### C BC ####[facility] Titzmfqedb[address] [place], [place] [address]Dr. Tishemily Suresh MANUAL DIFF REQ NO Normal [facility] Comment on above: Performed By: #### C BC ####[facility] Pyjknwgnbm[address] [place], [place] [address]Dr. Devin Suresh MCH (RBC) [Entitic mass] 30.5 pg Normal 26.7-34.0 [facility] Comment on above: Performed By: #### C BC ####[facility] Muptugcyyw[address] [place] [address]DrMaris Suresh MCHC (RBC) [Mass/Vol] 34.7 g/dL Normal 29.9-35.2 [facility] Comment on above: Performed By: #### C BC ####[facility] Gkjttgskpr024[address] [place] [address]DrMaris Suresh MCV (RBC) [Entitic vol] 87.9 fL Normal 81.0-99.0 [facility] Comment on above: Performed By: #### C BC ####[facility] T[address]omwcif[address] [place], [place] [address]DrMaris Suresh MONO # 0.4 103/ul Normal 0.3-0.8 [facility] Comment on above: Performed By: #### C BC ####[facility] Mjmhlafvwg[address] [place], [place] [address]DrMaris Suresh Monocytes/100 WBC (Bld) 8.4 % Normal 1.7-12.0 [facility] Comment on above: Performed By: #### C BC ####[facility] Fwgknptnxl[address] [place], [place] [address]DrMaris Suresh NEUT # 3.4 103/ul Normal 1.4-6.5 [facility] Comment on above: Performed By: #### C BC ####[facility] Lzvzxkjjyh[address] [place], [place] [address]DrMaris Suresh Neutrophils/100 WBC (Bld) 65.1 % Normal 43.0-75.0 [facility] Comment on above: Performed By: #### C BC ####[facility] Amyjtemltg[address] [place], [place] [address]DrMaris Suresh Platelet mean volume (Bld) [Entitic vol] 8.8 fL Critically low 9.5-13.5 [facility] Comment on above: Performed By: #### C BC ####[facility] Cvaqnezapp[address] [place], [place] [address]Dr. Devin Suresh PLT 218 103/ul Normal 150-450 [facility] Comment on above: Performed By: #### C BC ####[facility] Jvyglvclnx5[address] [place] [id number]. Devin Suresh RBC 3.80 106/ul Critically low 4.20-5.40 [facility] Comment on above: Performed By: #### C BC ####[facility] Ebjezhxqiy8[address] [place] [id number]. Devin Suresh WBC 5.1 103/ul Normal 4.0-11.[address] [facility] Comment on above: Performed By: #### C BC ####[facility] Jnwmuxmxgx80[address] [place], [place] [address]Dr. Devin Suresh CRPon 08-02-2022 CRP 2.4 mg/dL Critically high <=1.0 [facility] Comment on above: Performed By: #### C MADM, CMP, BNP, CRP ####[facility] Rfdweakrfu[address] [place], [place] [address]Dr. Devin Suresh CULTURE BLOODon 08-02-2022 Microscopic examination of blood, culture Culture Observations: NO GROWTH AT 5 DAYS. Normal [facility] Comment on above: Performed By: #### B LDCX2 ####[facility] Ztunsjberz57[address] [place] [id number]. Devin Suresh Microscopic examination of blood, culture Culture Observations: NO GROWTH AT 5 DAYS. Normal [facility] Comment on above: Performed By: #### B LDCX1 ####[facility] Ncmurlkauy[address] [place] [id number]. Devin Suresh CULTURE URINEon 08-02-2022 CULTURE URINE Culture Observations : LIGHT GROWTH OF MIXED GENITAL ERIC. NO POTENTIAL PATHOGENS SEEN. Normal [facility] Comment on above: Performed By: #### U RCX ####[facility] Eiqzjexbsy[address] [place], [place] [address]Dr. Devin Suresh Covid-19 PCR (CVDTB)on 07-23 SARS-CoV-2 (COVID-19) RNA EBONIE+probe Ql (Unsp spec) Not detected Normal NOT DETECTED [facility] Comment on above: Result Comment: When [...] for this test is supported by the [place] of [employer] and Human Service's declaration that [...] longer be used). Performed By: #### [facility] ####[facility] Svmqybjctj66[address] [place], [place] [address]Dr. Devin Suresh ER URINE PROFILEon 3 Bilirubin Ql (U) Negative Normal NEGATIVE [facility] Comment on above: Performed By: #### CHUCKY STARR ####[facility] Pxqrypqdzo7063[address] [place], [place] [address]Dr. Devin Suresh Clarity (U) CLEAR Normal CLEAR [facility] Comment on above: Performed By: #### CHUCKY STARR ####[facility] Pmqiughyia63[address] [place], [place] [address]DrMaris Suresh Color (U) LT. YELLOW Normal YELLOW [facility] Comment on above: Performed By: #### CHUCKY STARR ####[facility] Gsalpqpcbm6[address] [place], [place] [address]DrMaris Suresh ERUAHD A micrscopic examina tion will be performed if indicated. Normal [facility] Comment on above: Performed By: #### CHUCKY STARR ####[facility] Wqmaorqhpc[address] [place], [place] [address]DrMaris Suresh Glucose Ql (U) >1000 Abnormal NEGATIVE [facility] Comment on above: Performed By: #### Bud ALLEN UMICRO ####[facility] Fghacdnzrf39[address] [place] [address]Dr. Devin Suresh Hemoglobin Ql (U) TRACE-LYSED Abnormal NEGATIVE [facility] Comment on above: Performed By: #### Bud ALLEN UMICRO ####[facility] Ocmyvkafnw53[address] [place], [place] [address]Dr. Devin Suresh Ketones Ql (U) Negative Normal NEGATIVE [facility] Comment on above: Performed By: #### Bud ALLEN UMICRO ####[facility] Kyjkffsigt[address] [place], [place] [address]Dr. Devin Suresh LEUKOCYTES Negative Normal NEGATIVE [facility] Comment on above: Performed By: #### Bud ALLEN UMICRO ####[facility] Pddsbeqnra9378[address] [place], [place] [address]Dr. Devin Suresh Nitrite Ql (U) Negative Normal NEGATIVE [facility] Comment on above: Performed By: #### GEORGE STARRICRO ####[facility] Asbfnmmhwt4166[address] [place], [place] [address]Dr. Devin Suresh pH (U) 6.0 [pH] Normal 5-[address] [facility] Comment on above: Performed By: #### GEORGE STARRICRO ####[facility] Wtpayvqrur[address] [place], [place] [address]Dr. Devin Suresh SPEC GRAVITY 1.010 Normal 1.005-<=1.[address] [facility] Comment on above: Performed By: #### GEORGE STARRICRO ####[facility] Njkqoistzf[address] [place], [place] [address]Dr. Devin Suresh UA PROTEIN Negative Normal NEGATIVE/ TRACE [facility] Comment on above: Performed By: #### GEORGE STARRICRO ####[facility] Yynrrlkpgi[address] [place], [place] [address]Dr. Devin Suresh UR MICRO IND INDICATED Normal [facility] Comment on above: Performed By: #### REAGAN STARRRO ####[facility] Qukphyxmvt47[address] [place] [address]Dr. Tishemily Kerwin Urobilinogen Qn (U) 0.2 {Sheyla'U}/dL Normal 0.2 - 1. [address] [facility] Comment on above: Performed By: #### E CHUCKY ALLEN ####[facility] Tjqgoarhiw[address] [place] [address]Dr. Devin Suresh LACTATE/LACTIC ACIDon 2022 Lactate [Moles/Vol] 1.2 mmol/L Normal 0.4-2.[address] [facility] Comment on above: Performed By: #### L ACT ####[facility] Vvrnmpqthq17[address] [place] [address]Dr. Devin Suresh Lactate [Moles/Vol] 3.1 mmol/L Critically high 0.4-2.[address] [facility] Comment on above: Performed By: #### L ACT ####[facility] Hiazbkbvck4[address] [place] [address]Dr. Devin Suresh POINT OF CARE GLUCOSEon 07-23 Glucose [Mass/Vol] 293 mg/dL Critically high 74-106 [facility] Comment on above: Performed By: #### P OCGLUC ####[facility] Pzjxfjzvzb45[address] [place] [address]Dr. Devin Suresh POCGLUC >600 Critically high 74-106 [facility] Comment on above: Result Comment: Lab Draw Ordered Performed By: #### P OCGLUC ####[facility] Xsnfkupkjg67[address] [place], [place] [address]Dr. Devin Suresh PROF 14(COMP METB)on 023 Albumin [Mass/Vol] 3.6 g/dL Normal 3.4-5.0 [facility] Comment on above: Performed By: #### C MADM, CMP, BNP, CRP ####[facility] Pytnigaows2[address] [place] [address]Dr. Devin Suresh Albumin/Globulin [Mass ratio] 1.2 {ratio} Normal [facility] Comment on above: Performed By: #### C MADM, CMP, BNP, CRP ####[facility] Unefhvamhb[address] [place] [address]Dr. Devin Suresh ALP [Catalytic activity/Vol] 113 U/L Normal 46-[address] [facility] Comment on above: Performed By: #### C MADM, CMP, BNP, CRP ####[facility] Riodruegrk28[address] [place] [address]Dr. Devin Suresh ALT [Catalytic activity/Vol] 12 U/L Critically low 14-[address] [facility] Comment on above: Performed By: #### C MADM, CMP, BNP, CRP ####[facility] Xgrbupuhjr9[address] [place] [address]Dr. Devin Suresh Anion gap [Moles/Vol] 15.4 mmol/L Normal [facility] Comment on above: Performed By: #### C MADM, CMP, BNP, CRP ####[facility] Ggvielofas37[address] [place] [address]Dr. Devin Suresh AST [Catalytic activity/Vol] 13 U/L Critically low 15-[address] [facility] Comment on above: Performed By: #### C MADM, CMP, BNP, CRP ####[facility] Taecjgxezr[address] [place], [place] [address]Dr. Devin Suresh Bilirubin [Mass/Vol] 0.5 mg/dL Normal 0.2-1.[address] [facility] Comment on above: Performed By: #### C MADM, CMP, BNP, CRP ####[facility] Fakiaracvm[address] [place] [address]Dr. Devin Suresh Calcium [Mass/Vol] 8.4 mg/dL Critically low 8.5-10.1 [facility] Comment on above: Performed By: #### C MADM, CMP, BNP, CRP ####[facility] Knizsedgci[address] [place], [place] [address]Dr. Devin Suresh Chloride [Moles/Vol] 96 mmol/L Critically low 98-[address] [facility] Comment on above: Performed By: #### C MADM, CMP, BNP, CRP ####[facility] Hphaadctvf[address] [place], [place] [address]Dr. Devin Suresh CO2 [Moles/Vol] 21.8 mmol/L Normal 21.0-32.0 [facility] Comment on above: Performed By: #### C MADM, CMP, BNP, CRP ####[facility] Ghjgrcgcoe8598 [place] [address]Dr. Devin Suresh Creatinine [Mass/Vol] 1.54 mg/dL Critically high 0.55-1.[address] [facility] Comment on above: Performed By: #### C MADM, CMP, BNP, CRP ####[facility] Gveircreqv6[address] [place] [address]Dr. Devin Kerwin EGFR-AF ARMENIAN 44 mL/min/1.73m2 Critically low >=[address] [facility] Comment on above: Performed By: #### C MADM, CMP, BNP, CRP ####[facility] Alblzakcwc040[address] [place] [address]Dr. Devin Suresh EGFR-NON AF ARMENIAN 36 mL/min/1.73m2 Critically low >=60 [facility] Comment on above: Performed By: #### C MADM, CMP, BNP, CRP ####[facility] Cdbnaqiqav6978 [place] [address]Dr. Tishemily Suresh Globulin (S) [Mass/Vol] 3.1 g/dL Normal [facility] Comment on above: Performed By: #### C MADM, CMP, BNP, CRP ####[facility] Fhrqrjjlut0481 [place] [address]Dr. Devin Kerwin Glucose [Mass/Vol] 562 mg/dL Critically high 74-106 [facility] Comment on above: Performed By: #### C MADM, CMP, BNP, CRP ####[facility] Vmqhglllaq4187 [place] [address]Dr. Devin Kerwin Potassium [Moles/Vol] 4.2 mmol/L Normal 3.5-5.1 [facility] Comment on above: Performed By: #### C MADM, CMP, BNP, CRP ####[facility] Ldvdgajwhs8125 [place] [address]Dr. Devin Kerwin Protein [Mass/Vol] 6.7 g/dL Normal 6.4-8.2 [facility] Comment on above: Performed By: #### C MADM, CMP, BNP, CRP ####[facility] Aljkehopks[address]126 [place] [address]Dr. Devin Suresh Sodium [Moles/Vol] 129 mmol/L Critically low 136-145 [facility] Comment on above: Performed By: #### C MADM, CMP, BNP, CRP ####[facility] Pbmlptfvjy37[address] [place], [place] [address]Dr. Devin Suresh Urea nitrogen [Mass/Vol] 18.0 mg/dL Normal 7.0-18.[address] [facility] Comment on above: Performed By: #### C MADM, CMP, BNP, CRP ####[facility] Ngfaumibur[address] [place], [place] [address]Dr. Devin Suresh Urea nitrogen/Creatinine [Mass ratio] 11.7 mg/mg Normal [facility] Comment on above: Performed By: #### C MADM, CMP, BNP, CRP ####[facility] Uolbxstvrh7[address] [place], [place] [address]Dr. Devin Suresh PROTIMEon 08-02-2022 INR Coag (PPP) [Relative time] 0.96 {INR} Normal [facility] Comment on above: Performed By: #### P T, PTT ####[facility] Sppyndptgh[address] [place], [place] [address]Dr. Devin Suresh INR GUIDELINES SEE BELOW Normal [facility] Comment on above: Result Comment: EVA RED INR: 2.0 - 3.0 CONDITIONS NOT LISTED BELOW 2.5 - 3.5 FOR PROSTHETIC HEART VALVE REPLACEMENT 2.5 - 3.5 RECURRENT THROMBOSIS Performed By: #### P T, PTT ####[facility] Hjzwylwafa[address] [place], [place] [address]Dr. Devin Suresh PT Coag (PPP) [Time] 10.2 s Normal 9.0-11.[address] [facility] Comment on above: Performed By: #### P T, PTT ####[facility] Efebzpnplw[address] [place], [place] [address]Dr. Devin Suresh PTTon 08-02-2022 aPTT Coag (Bld) [Time] 26.4 s Normal 22.3-36.2 [facility] Comment on above: Performed By: #### P T, PTT ####[facility] Dlyrlvcucb6654 [place] [address]Dr. Devin Suresh SED RATE WESTERGRENon 2022 SED RATE 22 mm/hr Critically high <=20 [facility] Comment on above: Performed By: #### S EDR ####[facility] Uojuzujdik[address] [place], [place] [address]Dr. Devin Suresh URINE MICROSCOPIC ONLYon BACTERIA TRACE Abnormal NONE SEEN [facility] Comment on above: Performed By: #### GEORGE STARRICRO ####[facility] Ylvqfbsitp0196 [place] [address]Dr. Devin Suresh Bacteria identified Cx Nom (U) INDICATED Normal [facility] Comment on above: Performed By: #### GEORGE STARRICRO ####[facility] Ovkmsxctqp7[address] [place], [place] [address]Dr. Devin Suresh CAST NONE SEEN Normal NONE SEEN [facility] Comment on above: Performed By: #### REAGAN STARRRO ####[facility] Ibaxkrkfoz7[address] [place] [address]Dr. Devin Suresh Crystals LM Nom (Urine sed) NONE SEEN Normal NONE SEEN [facility] Comment on above: Performed By: #### REAGAN STARRRO ####[facility] Vcqyqduljd9805 [place] [address]Dr. Devin Suresh Epithelial cells LM Ql (Urine sed) RARE Normal NONE SEEN /RARE [facility] Comment on above: Performed By: #### GEORGE STARRICRO ####[facility] Mjhbctoume[address]76[address] [place], [place] [address]Dr. Devin Suresh MUCOUS NONE SEEN Normal NONE SEEN [facility] Comment on above: Performed By: #### REAGAN STARRRO ####[facility] Diulajyhot6359[address] [place], [place] [address]Dr. Devin Suresh RBC 0-2 Normal 0-2 [facility] Comment on above: Performed By: #### REAGAN STARRRO ####[facility] Yqfxlqaxkx6[address] [place], [place] [address]Dr. Devin Suresh WBC NONE SEEN Normal NONE SEEN [facility] Comment on above: Performed By: #### E REAGAN ALLENRO ####[facility] Qeapajpjql8766 [place] [address]Dr. Devin Suresh YEAST PRESENT Abnormal NONE SEEN [facility] Comment on above: Performed By: #### E REAGAN ALLENRO ####[facility] Nzyfrwxekb4[address] [place], [place] [address]Dr. Devin Suresh XR CHEST 1 Von 08-02-2022 XR CHEST 1 V Normal [facility] XR FOOT LT MIN 3 VIEWSon XR FOOT LT MIN 3 VIEWS Normal [facility] BLOOD CULTURE ID PANELon A. baumannii Not detected Normal NOT DETECTED [facility] Comment on above: Performed By: #### B CID2 ####[facility] Jbarkgnbyd[address] [place], [place] [address]Dr. Devin Suresh Bacteriodes fragilis Not detected Normal NOT DETECTED [facility] Comment on above: Performed By: #### B CID2 ####[facility] Adpwyohuum7840[address] [place], [place] [address]Dr. Devin Suresh BCID CONTROLS PASSED Normal [facility] Comment on above: Performed By: #### B CID2 ####[facility] Dzzgbnxatf3358 [place] [address]Dr. Devin Suresh BCIDBTHD BLOOD CULTURE BOTTLE INFORMATION Normal [facility] Comment on above: Performed By: #### B CID2 ####[facility] Bsyznxhgjt9789[address] [place], [place] [address]Dr. Devin Suresh BCIDHD1 ANTIMICROBIAL RESIST ANCE GENES Normal [facility] Comment on above: Performed By: #### B CID2 ####[facility] Wbyrcbidec[address] [place], [place] [address]Dr. Devin Suresh BCIDHD2 SEE BELOW Normal [facility] Comment on above: Result Comment: Note : Antimicrobial resitance can occur via multiple mechanisms. A Not Detected result for the [employer] antomicrobial resistance gene assays does not indicate antimicrobial susceptibility. Subculturing is required for species identification and susceptibility testing of isolates. Performed By: #### B CID2 ####[facility] Wiskerrscf[address] [place] [address]Dr. Devin Suresh BCIDHD3 Positive Normal [facility] Comment on above: Performed By: #### B CID2 ####[facility] Vclnniilvh5603 [place] [address]Dr. Devin Suresh BCIDHD4 Negative Normal [facility] Comment on above: Performed By: #### B CID2 ####[facility] Nfcvzshemc23[address] [place], [place] [address]Dr. Devin Suresh BCIDHD5 YEAST Normal [facility] Comment on above: Performed By: #### B CID2 ####[facility] Zcasombeab9376[address] [place], [place] [address]Dr. Devin Suresh Bottle Set: Set 2 Normal [facility] Comment on above: Performed By: #### B CID2 ####[facility] Xlnalilphw[address] [place], [place] [address]Dr. Devin Suresh Bottle: Anaerobic Normal [facility] Comment on above: Performed By: #### B CID2 ####[facility] Ptgdooritt[address] [place], [place] [address]Dr. Devin Suresh C. neoformans/gattii Not detected Normal NOT DETECTED [facility] Comment on above: Performed By: #### B CID2 ####[facility] Quhligvkpf82[address] [place], [place] [address]Dr. Devin Suresh Jackelyn albicans Not detected Normal NOT DETECTED [facility] Comment on above: Performed By: #### B CID2 ####[facility] Whonsgednv9[address] [place], [place] [address]Dr. Devin Suresh Jackelyn auris Not detected Normal NOT DETECTED [facility] Comment on above: Performed By: #### B CID2 ####[facility] Odjqozmdbe764[address] [place], [place] [address]Dr. Devin Suresh Jackelyn glabrata Not detected Normal NOT DETECTED [facility] Comment on above: Performed By: #### B CID2 ####[facility] Tbsevhgewj15[address] [place], [place] [address]Dr. Yilan Suresh Jackelyn Krusei Not detected Normal NOT DETECTED [facility] Comment on above: Performed By: #### B CID2 ####[facility] Msmkdbjxus[address]356[address] [place], [place] [address]Dr. Yilan Suresh Jackelyn Parapsilosis Not detected Normal NOT DETECTED [facility] Comment on above: Performed By: #### B CID2 ####[facility] Diwxrxfeno6405[address] [place], [place] [address]Dr. Yilan Suresh Jackelyn Tropicalis Not detected Normal NOT DETECTED [facility] Comment on above: Performed By: #### B CID2 ####[facility] Zmdnfgtgua1490[address] [place], [place] [address]Dr. Devin Suresh CTX-M Resistant Gene Not Applicable Normal NOT DETECTED [facility] Comment on above: Performed By: #### B CID2 ####[facility] Ypifsyxzne[address]08[address] [place], [place] [address]Dr. Yiemily Suresh E. Cloacae complex Not detected Normal NOT DETECTED [facility] Comment on above: Performed By: #### B CID2 ####[facility] Xvyxmntjzy10[address] [place], [place] [address]Dr. Yiemily Suresh E. faecalis Not detected Normal NOT DETECTED [facility] Comment on above: Performed By: #### B CID2 ####[facility] Baaeyckvdb8197[address] [place], [place] [address]Dr. Yiemily [facility] E. faecium Not detected Normal NOT DETECTED [facility] Comment on above: Performed By: #### B CID2 ####[facility] Rylufdchcd7[address] [place], [place] [address]Dr. Tishlan Suresh Enterobacteriaceae Not detected Normal NOT DETECTED [facility] Comment on above: Performed By: #### B CID2 ####[facility] Oswdajltdn[address] [place], [place] [address]Dr. Yiemily Suresh Escherichia coli Not detected Normal NOT DETECTED [facility] Comment on above: Performed By: #### B CID2 ####[facility] Vgoampfhry9137[address] [place], [place] [address]Dr. Devin Suresh H. influenzae Not detected Normal NOT DETECTED [facility] Comment on above: Performed By: #### B CID2 ####[facility] Jqfpgwpddp[address] [place], [place] [address]Dr. Devin Suresh IMP Resistant Gene Not Applicable Normal NOT DETECTED [facility] Comment on above: Performed By: #### B CID2 ####[facility] Bafowtszua11[address] [place], [place] [address]Dr. Devin Suresh K. oxytoca Not detected Normal NOT DETECTED [facility] Comment on above: Performed By: #### B CID2 ####[facility] Xcmsmlvzjh8318[address] [place], [place] [address]Dr. Devin Suresh K. pneumoniae Not detected Normal NOT DETECTED [facility] Comment on above: Performed By: #### B CID2 ####[facility] Soqjfrlpgh9[address] [place], [place] [address]Dr. Devin Suresh Klebsiella aerogenes Not detected Normal NOT DETECTED [facility] Comment on above: Performed By: #### B CID2 ####[facility] Wjsspmpvme55[address] [place], [place] [address]Dr. Devin Suresh KPC Resistant Gene Not Applicable Normal NOT DETECTED [facility] Comment on above: Performed By: #### B CID2 ####[facility] Wttmjnxtny[address] [place], [place] [address]Dr. Tishemily Suresh List. monocytogenes Not detected Normal NOT DETECTED [facility] Comment on above: Performed By: #### B CID2 ####[facility] Alyypenjjo7416[address] [place], [place] [address]Dr. Devin Suresh Mcr-1 Resistant Gene Not Applicable Normal NOT DETECTED [facility] Comment on above: Performed By: #### B CID2 ####[facility] Tkajekvktv2133[address] [place], [place] [address]Dr. Devin Suresh mecA/C Not Applicable Normal NOT DETECTED [facility] Comment on above: Performed By: #### B CID2 ####[facility] Sfkatlnokj8[address] [place], [place] [address]Dr. Devin Suresh mecA/C MREJ Not Applicable Normal NOT DETECTED [facility] Comment on above: Performed By: #### B CID2 ####[facility] Rxftebhbvb[address] [place], [place] [address]Dr. Devin Suresh N. meningitidis Not detected Normal NOT DETECTED [facility] Comment on above: Performed By: #### B CID2 ####[facility] Cxpykzfioc1985[address] [place], [place] [address]Dr. Devin Suresh NDM Resistant Gene Not Applicable Normal NOT DETECTED [facility] Comment on above: Performed By: #### B CID2 ####[facility] Rccfquqkur7925[address] [place], [place] [address]Dr. Devin Suresh Oxa-48-like Not Applicable Normal NOT DETECTED [facility] Comment on above: Performed By: #### B CID2 ####[facility] Ziziglpmui9818[address] [place], [place] [address]Dr. Devin Suresh Proteus Not detected Normal NOT DETECTED [facility] Comment on above: Performed By: #### B CID2 ####[facility] Qbstlkspwg4[address] [place], [place] [address]Dr. Devin Suresh Pseud. aeruginosa Not detected Normal NOT DETECTED [facility] Comment on above: Performed By: #### B CID2 ####[facility] Ceoyovxihd7357[address] [place], [place] [address]Dr. Devin Suresh S. maltophilia Not detected Normal NOT DETECTED [facility] Comment on above: Performed By: #### B CID2 ####[facility] Bwpbvjdceo[address] [place], [place] [address]Dr. Devin Suresh Salmonella Not detected Normal NOT DETECTED [facility] Comment on above: Performed By: #### B CID2 ####[facility] Zwwsnuvyph48[address] [place], [place] [address]Dr. Devin Suresh Seratia marcescens Not detected Normal NOT DETECTED [facility] Comment on above: Performed By: #### B CID2 ####[facility] Fafftewqur57[address] [place], [place] [address]Dr. Devin Suresh Site: RAC Normal [facility] Comment on above: Performed By: #### B CID2 ####[facility] Ohcqajkwiq38[address] [place], [place] [address]Dr. Devin Suresh Staph. aureus Not detected Normal NOT DETECTED [facility] Comment on above: Performed By: #### B CID2 ####[facility] Nfhplatqfj[address] [place], [place] [address]Dr. Devin Suresh Staph. epidermidis Not detected Normal NOT DETECTED [facility] Comment on above: Performed By: #### B CID2 ####[facility] Xvwuldmodk7[address] [place], [place] [address]Dr. Devin Suresh Staph. lugdunensis Not detected Normal NOT DETECTED [facility] Comment on above: Performed By: #### B CID2 ####[facility] Ghegivjfxd[address] [place], [place] [address]Dr. Devin Suresh Staphylococcus Not detected Normal NOT DETECTED [facility] Comment on above: Performed By: #### B CID2 ####[facility] Bctbvbjudg[address] [place], [place] [address]Dr. Devin Suresh Strep. agalactiae Not detected Normal NOT DETECTED [facility] Comment on above: Performed By: #### B CID2 ####[facility] Uppryocems[address] [place], [place] [address]Dr. Devin Suresh Strep. pneumoniae Not detected Normal NOT DETECTED [facility] Comment on above: Performed By: #### B CID2 ####[facility] Fgogbgdgfp[address] [place], [place] [address]Dr. Devin Suresh Strep. pyogenes Not detected Normal NOT DETECTED [facility] Comment on above: Performed By: #### B CID2 ####[facility] Urtscbukoz[address] [place], [place] [address]Dr. Devin Suresh Streptococcus Not detected Normal NOT DETECTED [facility] Comment on above: Performed By: #### B CID2 ####[facility] Zpahnpyleu[address] [place], [place] [address]Dr. Tishemily Suresh Rich/B Resist. Gene Not Applicable Normal NOT DETECTED [facility] Comment on above: Performed By: #### B CID2 ####[facility] Pvvgupreiz[address] [place] [address]Dr. Tishemily Suresh VIM Resistant Gene Not Applicable Normal NOT DETECTED [facility] Comment on above: Performed By: #### B CID2 ####[facility] Jhkovnigvg3518 [place] [phone]. Devin Suresh CBC AUTO DIFFon 07-30-2022 BASO # 0.0 103/ul Normal 0.0-0.[address] [facility] Comment on above: Performed By: #### C BC ####[facility] Ntjuffphtk[address] [place], [place] [address]Dr. Devin Suresh Basophils/100 WBC (Bld) 0.5 % Normal 0.2-2.[address] [facility] Comment on above: Performed By: #### C BC ####[facility] Muhgetjwpw1[address] [place], [place] [address]Dr. Devin Suresh EO # 0.1 103/ul Normal 0.0-0.[address] [facility] Comment on above: Performed By: #### C BC ####[facility] Zngfiwvhgq[address] [place], [place] [address]Dr. Devin Suresh Eosinophils/100 WBC (Bld) 2.3 % Normal 0.9-7.[address] [facility] Comment on above: Performed By: #### C BC ####[facility] Rnvntkkyuc57[address] [place], [place] [address]Dr. Devin Suresh Erythrocyte distribution width (RBC) [Ratio] 13.4 % Normal 11.0-15.0 [facility] Comment on above: Performed By: #### C BC ####[facility] Bgztvjdacm9[address] [place], [place] [address]Dr. Devin Suresh Hematocrit (Bld) [Volume fraction] 36.9 % Normal 36.0-48.[address] [facility] Comment on above: Performed By: #### C BC ####[facility] Hnibobaksz[address] [place], [place] [address]Dr. Devin Suresh Hemoglobin (Bld) [Mass/Vol] 12.9 g/dL Normal 12.0-16.[address] [facility] Comment on above: Performed By: #### C BC ####[facility] Ehdtmksgeg[address] [place] [address]Dr. Devin Suresh IG # 0.02 10e3/ul Normal 0.00-0.[address] [facility] Comment on above: Performed By: #### C BC ####[facility] Pgqojkoidm1921 [place] [phone]. Devin Suresh IG % 0.4 % Normal 0.0-0.[address] [facility] Comment on above: Performed By: #### C BC ####[facility] Qqsfcjynfo8385 [place] [address]DrMaris Suresh LYMPH # 0.9 103/ul Critically low 1.2-3.8 [facility] Comment on above: Performed By: #### C BC ####[facility] Prftpzhoom0581 [place] [address]Dr. Devin Suresh Lymphocytes/100 WBC (Bld) 16.4 % Critically low 20.5-60.[address] [facility] Comment on above: Performed By: #### C BC ####[facility] Xjilcnruiv96[address] [place] [address]Dr. Devin Suresh MANUAL DIFF REQ NO Normal [facility] Comment on above: Performed By: #### C BC ####[facility] Bsmmmakykc3331 [place] [phone]. Devin Suresh MCH (RBC) [Entitic mass] 30.9 pg Normal 26.7-34.[address] [facility] Comment on above: Performed By: #### C BC ####[facility] Sxmwoatapa2282 [place] [phone]. Devin Suresh MCHC (RBC) [Mass/Vol] 35.0 g/dL Normal 29.9-35.2 [facility] Comment on above: Performed By: #### C BC ####[facility] Ncobdgirmv5698 [place] [phone]. Dvein Suresh MCV (RBC) [Entitic vol] 88.3 fL Normal 81.0-99.0 [facility] Comment on above: Performed By: #### C BC ####[facility] Cxwacfjlwc6091 [place] [phone]. Devin Suresh MONO # 0.4 103/ul Normal 0.3-0.8 [facility] Comment on above: Performed By: #### C BC ####[facility] Yvfhpsghlo8002 [place] [phone]. Devin Suresh Monocytes/100 WBC (Bld) 6.9 % Normal 1.7-12.[address] [facility] Comment on above: Performed By: #### C BC ####[facility] Xeufahoefl1646 [place] [phone]. Devin Suresh NEUT # 4.2 103/ul Normal 1.4-6.5 [facility] Comment on above: Performed By: #### C BC ####[facility] Mrmhseoasb1143 [place] [address]Dr. Devin Suresh Neutrophils/100 WBC (Bld) 73.5 % Normal 43.0-75.[address] [facility] Comment on above: Performed By: #### C BC ####[facility] Dglfhdhvad6764 [place] [phone]. Devin Suresh Platelet mean volume (Bld) [Entitic vol] 8.6 fL Critically low 9.5-13.[address] [facility] Comment on above: Performed By: #### C BC ####[facility] Nltatohwgl6575 [place] [phone]. Devin Suresh PLT 290 103/ul Normal 150-450 [facility] Comment on above: Performed By: #### C BC ####[facility] Asxlljhpuq7788 [place] [phone]. Devin Suresh RBC 4.18 106/ul Critically low 4.20-5.40 [facility] Comment on above: Performed By: #### C BC ####[facility] Gxwahmtnet2207 [place] [phone]. Devin Suresh WBC 5.7 103/ul Normal 4.0-11.0 [facility] Comment on above: Performed By: #### C BC ####[facility] Ruynnbkpaz1516 [place] [phone]. Devin Suresh CULTURE BLOODon 07-30-2022 Microscopic examination of blood, culture Culture Observations: NO GROWTH AT 5 DAYS. Normal [facility] Comment on above: Performed By: #### B LDCX1 ####[facility] Dqcdrdenmr3721 [place] [phone]. Devin Suresh Covid-19 PCR (CVDTB)on SARS-CoV-2 (COVID-19) RNA EBONIE+probe Ql (Unsp spec) Not detected Normal NOT DETECTED [facility] Comment on above: Result Comment: When [...] for this test is supported by the [employer] of Health and Human Service's declaration that [...] be used). Performed By: #### C VDTBH ####[facility] Wmptueysob4640 [place] [phone]. Devin Kerwin LACTATE/LACTIC ACIDon 2022 Lactate [Moles/Vol] 1.2 mmol/L Normal 0.4-1.[address] [facility] Comment on above: Performed By: #### L ACT ####[facility] Ijdegnkput4133 [place] [phone]. Devin Suresh PROF 14(COMP METB)on 023 Albumin [Mass/Vol] 4.1 g/dL Normal 3.4-5.0 [facility] Comment on above: Performed By: #### C MP ####[facility] Frgsmvavcs9092 [place] [address]Dr. Devin Suresh Albumin/Globulin [Mass ratio] 1.2 {ratio} Normal [facility] Comment on above: Performed By: #### C MP ####[facility] Jkkehvgtoz5092 [place] [address]Dr. Devin Suresh ALP [Catalytic activity/Vol] 114 U/L Normal 46-[address] [facility] Comment on above: Performed By: #### C MP ####[facility] Ointpvvqnf09[address] [place], [place] [address]Dr. Devin Suresh ALT [Catalytic activity/Vol] 20 U/L Normal 14-[address] [facility] Comment on above: Performed By: #### C MP ####[facility] Wojhgdfppy[address] [place], [place] [address]Dr. Devin Suresh Anion gap [Moles/Vol] 13.5 mmol/L Normal [facility] Comment on above: Performed By: #### C MP ####[facility] Vhfonnwqbc9639[address] [place], [place] [address]Dr. Devin Suresh AST [Catalytic activity/Vol] 12 U/L Critically low 15-[address] [facility] Comment on above: Performed By: #### C MP ####[facility] Afcrudyysi[address] [place], [place] [address]Dr. Devin Suresh Bilirubin [Mass/Vol] 0.4 mg/dL Normal 0.2-1.[address] [facility] Comment on above: Performed By: #### C MP ####[facility] Jbhfkoklwy8063[address] [place], [place] [address]Dr. Devin Suresh Calcium [Mass/Vol] 9.3 mg/dL Normal 8.5-10.1 [facility] Comment on above: Performed By: #### C MP ####[facility] Vrxudxiplp6[address] [place], [place] [address]Dr. Devin Suresh Chloride [Moles/Vol] 105 mmol/L Normal 98-[address] [facility] Comment on above: Performed By: #### C MP ####[facility] Bfuzfydipn9480 [place] [address]Dr. Devin Suresh CO2 [Moles/Vol] 27.3 mmol/L Normal 21.0-32.0 [facility] Comment on above: Performed By: #### C MP ####[facility] Tavgcbxbmu5458 [place] [address]Dr. Devin Suresh Creatinine [Mass/Vol] 0.90 mg/dL Normal 0.55-1.[address] [facility] Comment on above: Performed By: #### C MP ####[facility] Cluxajmgbd4200 [place] [address]Dr. Devin Suresh EGFR-AF ARMENIAN >60 Normal >=60 [facility] Comment on above: Performed By: #### C MP ####[facility] Risafhusvn[address] [place], [place] [address]Dr. Devin Suresh EGFR-NON AF ARMENIAN >60 Normal >=60 [facility] Comment on above: Performed By: #### C MP ####[facility] Xztaiutzcf6[address] [place], [place] [address]Dr. Devin Suresh Globulin (S) [Mass/Vol] 3.5 g/dL Normal [facility] Comment on above: Performed By: #### C MP ####[facility] Gybzdctxsg72[address] [place], [place] [address]Dr. Devin Suresh Glucose [Mass/Vol] 114 mg/dL Critically high 74-106 [facility] Comment on above: Performed By: #### C MP ####[facility] Dczqezgtbh8[address] [place], [place] [address]Dr. Devin Suresh Potassium [Moles/Vol] 3.8 mmol/L Normal 3.5-5.1 [facility] Comment on above: Performed By: #### C MP ####[facility] Pafojnepxd74[address] [place], [place] [address]Dr. Devin Suresh Protein [Mass/Vol] 7.6 g/dL Normal 6.4-8.2 [facility] Comment on above: Performed By: #### C MP ####[facility] Foxkjokjyw9528 [place] [phone]. Devin Kerwin Sodium [Moles/Vol] 142 mmol/L Normal 136-145 [facility] Comment on above: Performed By: #### C MP ####[facility] Esxteeduht9032 [place] [address]Dr. Devin Suresh Urea nitrogen [Mass/Vol] 12.0 mg/dL Normal 7.0-18.0 [facility] Comment on above: Performed By: #### C MP ####[facility] Grsdtojctp6[address] [place], [place] [address]Dr. Tishemily Suresh Urea nitrogen/Creatinine [Mass ratio] 13.3 mg/mg Normal [facility] Comment on above: Performed By: #### C MP ####[facility] Tsaukpzvpa[address] [place], [place] [address]Dr. Devin Kerwin XR CHEST 1 Von 07-30-2022 XR CHEST 1 V Normal [facility] XR FOOT LT MIN 3 VIEWSon XR FOOT LT MIN 3 VIEWS Normal [facility] ACETAMINOPHENon 07-10-2022 Acetaminophen [Mass/Vol] ug/mL Critically low 10.0-30.0 [facility] Comment on above: Performed By: #### A RHEA CAMPUZANO ####[facility] Skiczwjqdg6[address] [place], [place] [address]Dr. Devin Kerwin CBC AUTO DIFFon 07-10-2022 BASO # 0.1 103/ul Normal 0.0-0.1 [facility] Comment on above: Performed By: #### C BC ####[facility] Avvlbprmbc[address] [place], [place] [address]Dr. Devin Suresh Basophils/100 WBC (Bld) 0.8 % Normal 0.2-2.0 [facility] Comment on above: Performed By: #### C BC ####[facility] Zqbhntsoht8[address] [place], [place] [address]Dr. Devin Suresh EO # 0.2 103/ul Normal 0.0-0.7 [facility] Comment on above: Performed By: #### C BC ####[facility] Dlsacpjfcu8272 [place] [address]Dr. Devin Suresh Eosinophils/100 WBC (Bld) 1.6 % Normal 0.9-7.0 [facility] Comment on above: Performed By: #### C BC ####[facility] Fovzhflklj4064[address] [place], [place] [address]Dr. Devin Suresh Erythrocyte distribution width (RBC) [Ratio] 12.9 % Normal 11.0-15.0 [facility] Comment on above: Performed By: #### C BC ####[facility] Bsurapdmxx[address] [place], [place] [address]Dr. Devin Suresh Hematocrit (Bld) [Volume fraction] 35.5 % Critically low 36.0-48.0 [facility] Comment on above: Performed By: #### C BC ####[facility] Outnvfmext0135[address] [place], [place] [address]Dr. Devin Suresh Hemoglobin (Bld) [Mass/Vol] 12.4 g/dL Normal 12.0-16.0 [facility] Comment on above: Performed By: #### C BC ####[facility] Arevatsrih6[address] [place], [place] [address]Dr. Devin Suresh IG # 0.03 10e3/ul Normal 0.00-0.03 [facility] Comment on above: Performed By: #### C BC ####[facility] Dknydksueg5[address] [place], [place] [address]Dr. Devin Suresh IG % 0.3 % Normal 0.0-0.5 [facility] Comment on above: Performed By: #### C BC ####[facility] Spqnlwgbjg[address] [place], [place] [address]Dr. Devin Suresh LYMPH # 1.8 103/ul Normal 1.2-3.8 [facility] Comment on above: Performed By: #### C BC ####[facility] Dijzyyjnja97[address] [place], [place] [address]Dr. Devin Suresh Lymphocytes/100 WBC (Bld) 19.5 % Critically low 20.5-60.0 [facility] Comment on above: Performed By: #### C BC ####[facility] Pmygavoqna8130 [place] [phone]. Devin Suresh MANUAL DIFF REQ NO Normal [facility] Comment on above: Performed By: #### C BC ####[facility] Vtvzhhgksl2230 [place] [phone]. Devin Suresh MCH (RBC) [Entitic mass] 31.2 pg Normal 26.7-34.0 [facility] Comment on above: Performed By: #### C BC ####[facility] Quplhmghoq8413 [place] [phone]. Devin Suresh MCHC (RBC) [Mass/Vol] 34.9 g/dL Normal 29.9-35.2 [facility] Comment on above: Performed By: #### C BC ####[facility] Wzmnuiattz0529 [place] [phone]. Devin Kerwin MCV (RBC) [Entitic vol] 89.2 fL Normal 81.0-99.0 [facility] Comment on above: Performed By: #### C BC ####[facility] Wgcjknwlkl0004 [place] [phone]. Devin Kerwin MONO # 0.5 103/ul Normal 0.3-0.8 [facility] Comment on above: Performed By: #### C BC ####[facility] Mqjlkmpxbm1131 [place] [phone]. Tishemily Suresh Monocytes/100 WBC (Bld) 5.0 % Normal 1.7-12.0 [facility] Comment on above: Performed By: #### C BC ####[facility] Ueyczdobin3718 [place] [phone]. Devin Kerwin NEUT # 6.8 103/ul Critically high 1.4-6.5 [facility] Comment on above: Performed By: #### C BC ####[facility] Daugrucrgs5003 [place] [phone]. Devin Suresh Neutrophils/100 WBC (Bld) 72.8 % Normal 43.0-75.0 [facility] Comment on above: Performed By: #### C BC ####[facility] Qprkztkztg8608 [place] [phone]. Devin Suresh Platelet mean volume (Bld) [Entitic vol] 8.6 fL Critically low 9.5-13.5 [facility] Comment on above: Performed By: #### C BC ####[facility] Epragvzhqx6487 [place] [phone]. Devin Suresh PLT 303 103/ul Normal 150-450 [facility] Comment on above: Performed By: #### C BC ####[facility] Ledfgqkngh1185 [place] [phone]. Devin Suresh RBC 3.98 106/ul Critically low 4.20-5.40 [facility] Comment on above: Performed By: #### C BC ####[facility] Ufpiccbvjm3712 [place] [phone]. Devin Suresh WBC 9.3 103/ul Normal 4.0-11.0 [facility] Comment on above: Performed By: #### C BC ####[facility] Aahwpqepyy6290 [place] [address]Dr. Devin Kerwin DRUG SCREEN RAPID (URINE)on 07-10-2022 AMP Negative Normal NEGATIVE [facility] Comment on above: Performed By: #### D RUGRPD ####[facility] Ouveutwoir0112 [place] [phone]. Devin Kerwin BAR Negative Normal NEGATIVE [facility] Comment on above: Performed By: #### D RUGRPD ####[facility] Ihouddibtj4854 [place] [address]Dr. Devin Suresh BUP Negative Normal NEGATIVE [facility] Comment on above: Performed By: #### D RUGRPD ####[facility] Cbyqcymcfz5180 [place] [address]Dr. Devin Suresh BZO Negative Normal NEGATIVE [facility] Comment on above: Performed By: #### D RUGRPD ####[facility] Wueqdmexfh2696 [place] [phone]. Devin Suresh KATHY Negative Normal NEGATIVE [facility] Comment on above: Performed By: #### D RUGRPD ####[facility] Gvadynjcak7502 [place] [phone]. Devin Suresh CUT-OFFS SEE BELOW Normal [facility] Comment on above: Result Comment: AMP (Amphetamine): 500ng/mL, BAR (Barbituates): 200 ng/mL, BZO (Benzodiazepines): 150 ng/mL, BUP (Buprenorphine): 10 ng/mL, KATHY (Cocaine): 150 ng/mL, mAMP (Methamphetamine): 500 ng/mL, MTD (Methadone): 200 ng/mL, OPI (Opiates): 100 ng/mL, OXY (Oxycodone): 100 ng/mL, PCP (Phencyclidine): 25 ng/mL, PPX (Propoxyphene): 300 ng/mL, THC (Cannabinoids): 50 ng/mL, TCA (Trycyclic Antidepressants): 300 ng/mL Performed By: #### D RUGRPD ####[facility] Yazozsxvhn66[address] [place], [place] [address]Dr. Devin Suresh DRUG CUT HEADER DRUG CLASS TEST SYST EM CUT-OFF CONCENTRATIONS ARE FOLLOWS: Normal [facility] Comment on above: Performed By: #### D RUGRPD ####[facility] Toerbpndbr[address] [place], [place] [address]Dr. Devin Suresh mAMP Negative Normal NEGATIVE [facility] Comment on above: Performed By: #### D RUGRPD ####[facility] Ibypxzapdm01[address] [place], [place] [address]Dr. Devin Suresh MTD Negative Normal NEGATIVE [facility] Comment on above: Performed By: #### D RUGRPD ####[facility] Mfnefpvpev6862 [place] [address]Dr. Devin Suresh OPI Negative Normal NEGATIVE [facility] Comment on above: Performed By: #### D RUGRPD ####[facility] Hsxnfnvcye80[address] [place], [place] [address]Dr. Devin Suresh OXY Negative Normal NEGATIVE [facility] Comment on above: Performed By: #### D RUGRPD ####[facility] Zqlgurtmhb28[address] [place], [place] [address]Dr. Devin Suresh PCP Negative Normal NEGATIVE [facility] Comment on above: Performed By: #### D RUGRPD ####[facility] Mielbbqzdq0399 [place] [address]Dr. Devin Suresh PPX Negative Normal NEGATIVE [facility] Comment on above: Performed By: #### D RUGRPD ####[facility] Hhedxwzuok4471 [place] [address]Dr. Devin Suresh TCA Positive Abnormal NEGATIVE [facility] Comment on above: Performed By: #### D RUGRPD ####[facility] Cckqwafmxc6924[address] [place], [place] [address]Dr. Devin Suresh THC Negative Normal NEGATIVE [facility] Comment on above: Performed By: #### D RUGRPD ####[facility] Kcewtwmcrq220[address] [place], [place] [address]Dr. Devin Suresh ER URINE PROFILEon 3 Bilirubin Ql (U) Negative Normal NEGATIVE [facility] Comment on above: Performed By: #### E RUR ####[facility] Svpuphppoa8[address] [place], [place] [address]Dr. Devin Suresh Clarity (U) CLEAR Normal CLEAR [facility] Comment on above: Performed By: #### E RUR ####[facility] Amsrzodnhp09[address] [place], [place] [address]Dr. Devin Suresh Color (U) LT. YELLOW Normal YELLOW [facility] Comment on above: Performed By: #### E RUR ####[facility] Dyrdzgllvf1438[address] [place], [place] [address]Dr. Devin Suresh ERUAHD A micrscopic examina tion will be performed if indicated. Normal [facility] Comment on above: Performed By: #### E RUR ####[facility] Qvwtwgvgyx2112[address] [place], [place] [address]Dr. Devin Suresh Glucose Ql (U) 500 mg/dl Abnormal NEGATIVE [facility] Comment on above: Performed By: #### E RUR ####[facility] Pobyswvmot7264[address] [place], [place] [address]Dr. Devin Suresh Hemoglobin Ql (U) TRACE-INTACT Abnormal NEGATIVE [facility] Comment on above: Performed By: #### E RUR ####[facility] Lehikompbp5596 [place] [address]Dr. Devin Suresh Ketones Ql (U) Negative Normal NEGATIVE [facility] Comment on above: Performed By: #### E RUR ####[facility] Zeiddooryt0276 [place] [address]Dr. Devin Suresh LEUKOCYTES Negative Normal NEGATIVE [facility] Comment on above: Performed By: #### E RUR ####[facility] Yvdihzqcrb1304[address] [place], [place] [address]Dr. Devin Suresh Nitrite Ql (U) Negative Normal NEGATIVE [facility] Comment on above: Performed By: #### E RUR ####[facility] Imzplaidrn16[address] [place], [place] [address]Dr. Devin Suresh pH (U) 6.0 [pH] Normal 5-9 [facility] Comment on above: Performed By: #### E RUR ####[facility] Nkzxghluzb7711[address] [place], [place] [address]Dr. Devin Suresh SPEC GRAVITY 1.025 Normal 1.005-<=1.[address] [facility] Comment on above: Performed By: #### E RUR ####[facility] Yceboiyayk7356[address] [place], [place] [address]Dr. Devin Suresh UA PROTEIN TRACE Normal NEGATIVE/ TRACE [facility] Comment on above: Performed By: #### E RUR ####[facility] Ttlthsnode050[address] [place], [place] [address]Dr. Devin Suresh UR MICRO IND NOT INDICATED Normal [facility] Comment on above: Performed By: #### E RUR ####[facility] Ridslrnskk[address] [place], [place] [address]Dr. Devin Suresh Urobilinogen Qn (U) 0.2 {Sheyla'U}/dL Normal 0.2 - 1. [address] [facility] Comment on above: Performed By: #### E RUR ####[facility] Qipjuajbmz10[address] [place], [place] [address]Dr. Devin Suresh ETHANOL (BLD ALC)on 07-10-19 ALC NOTE NOTE: 80 mg/dl is th e legal limit for a blood alcohol level Normal [facility] Comment on above: Performed By: #### E TH ####[facility] Ytmupqaokg75[address] [place], [place] [address]Dr. Devin Suresh Ethanol [Mass/Vol] mg/dL Normal [facility] Comment on above: Performed By: #### E TH ####[facility] Rhkregygcg20[address] [place], [place] [address]Dr. Devin Suresh PROF CHEM 8 (BAS METB)on Anion gap [Moles/Vol] 12.4 mmol/L Normal [facility] Comment on above: Performed By: #### B MP ####[facility] Jqwzgkciyd40[address] [place], [place] [address]Dr. Devin Suresh Calcium [Mass/Vol] 8.6 mg/dL Normal 8.5-10.1 [facility] Comment on above: Performed By: #### B MP ####[facility] Xfgxuzqkao677[address] [place], [place] [address]Dr. Devin Suresh Chloride [Moles/Vol] 103 mmol/L Normal 98-107 [facility] Comment on above: Performed By: #### B MP ####[facility] Foqwjhcgkv[address] [place], [place] [address]Dr. Devin Suresh CO2 [Moles/Vol] 27.5 mmol/L Normal 21.0-32.0 [facility] Comment on above: Performed By: #### B MP ####[facility] Wkxsjqhrty[address] [place], [place] [address]Dr. Devin Suresh Creatinine [Mass/Vol] 1.10 mg/dL Critically high 0.55-1.02 [facility] Comment on above: Performed By: #### B MP ####[facility] Yrjpgtdkkr54[address] [place], [place] [address]Dr. Devin Suresh EGFR-AF ARMENIAN >60 Normal >=60 [facility] Comment on above: Performed By: #### B MP ####[facility] Pwwphiouqq[address] [place], [place] [address]Dr. Devin Suresh EGFR-NON AF ARMENIAN 54 mL/min/1.73m2 Critically low >=[address] [facility] Comment on above: Performed By: #### B MP ####[facility] Hpieicszru4413 [place] [address]Dr. Devin Suresh Glucose [Mass/Vol] 253 mg/dL Critically high 74-106 [facility] Comment on above: Performed By: #### B MP ####[facility] Nwnizhisak0601 [place] [address]Dr. Devin Suresh Potassium [Moles/Vol] 3.9 mmol/L Normal 3.5-5.[address] [facility] Comment on above: Performed By: #### B MP ####[facility] Cdkzjdgglv5927 [place] [address]Dr. Devin Suresh Sodium [Moles/Vol] 139 mmol/L Normal 136-145 [facility] Comment on above: Performed By: #### B MP ####[facility] Bddyudaqrq9897 [place] [address]Dr. Devin Suresh Urea nitrogen [Mass/Vol] 18.0 mg/dL Normal 7.0-18.[address] [facility] Comment on above: Performed By: #### B MP ####[facility] Jpszcbnkpd[address] [place], [place] [address]Dr. Devin Suresh Urea nitrogen/Creatinine [Mass ratio] 16.4 mg/mg Normal [facility] Comment on above: Performed By: #### B MP ####[facility] Oyz[address]cvahk[address] [place] [address]Dr. Devin Suresh SALICYLATEon 07-10-2022 SALICYLATE <2.8 Normal <=19.9 [facility] Comment on above: Performed By: #### A RHEA CAMPUZANO ####[facility] Lunismignv[address] [place], [place] [address]Dr. Devin Suresh CBC AUTO DIFFon 06-21-2022 BASO # 0.1 103/ul Normal 0.0-0.[address] [facility] Comment on above: Performed By: #### C BC ####[facility] Btrnqqynfz33[address] [place] [phone]. Devin Suresh Basophils/100 WBC (Bld) 0.8 % Normal 0.2-2.0 [facility] Comment on above: Performed By: #### C BC ####[facility] Fkqtgcgnlh2145 [place] [phone]. Devin Suresh EO # 0.2 103/ul Normal 0.0-0.7 [facility] Comment on above: Performed By: #### C BC ####[facility] Wyrkeggjgv[address] [place], [place] [address]Dr. Devin Suresh Eosinophils/100 WBC (Bld) 2.1 % Normal 0.9-7.0 [facility] Comment on above: Performed By: #### C BC ####[facility] Hwtavocbcs[address] [place], [place] [address]Dr. Devin Suresh Erythrocyte distribution width (RBC) [Ratio] 12.6 % Normal 11.0-15.0 [facility] Comment on above: Performed By: #### C BC ####[facility] Zjibrbzcpv[address] [place], [place] [address]Dr. Devin Suresh Hematocrit (Bld) [Volume fraction] 34.9 % Critically low 36.0-48.0 [facility] Comment on above: Performed By: #### C BC ####[facility] Blxrojllkw[address] [place] [phone]. Devin Suresh Hemoglobin (Bld) [Mass/Vol] 12.3 g/dL Normal 12.0-16.0 [facility] Comment on above: Performed By: #### C BC ####[facility] Grbchmdtvy6[address] [place] [address]Dr. Devin Suresh IG # 0.03 10e3/ul Normal 0.00-0.03 [facility] Comment on above: Performed By: #### C BC ####[facility] Hushx[address]xp[address] [place], [place] [address]Dr. Devin Suresh IG % 0.4 % Normal 0.0-0.5 [facility] Comment on above: Performed By: #### C BC ####[facility] Azlgjmbxkz3738 [place] [phone]. Devin Suresh LYMPH # 1.7 103/ul Normal 1.2-3.8 [facility] Comment on above: Performed By: #### C BC ####[facility] Vphittlagc6209 [place], [place] [address]Hk. Devin Kerwin Lymphocytes/100 WBC (Bld) 20.0 % Critically low 20.5-60.0 [facility] Comment on above: Performed By: #### C BC ####[facility] Ztlfhwglar0804 [place] [phone]. Tishemily Suresh MANUAL DIFF REQ NO Normal [facility] Comment on above: Performed By: #### C BC ####[facility] Dtqwcudetx5320 [place] [phone]. Devin Kerwin MCH (RBC) [Entitic mass] 29.6 pg Normal 26.7-34.0 [facility] Comment on above: Performed By: #### C BC ####[facility] Ofyfkzyzrk5345 [place] [phone]. Devin Suresh MCHC (RBC) [Mass/Vol] 35.2 g/dL Normal 29.9-35.2 [facility] Comment on above: Performed By: #### C BC ####[facility] Ijzsxyrqvt8360 [place] [phone]. Devin Suresh MCV (RBC) [Entitic vol] 83.9 fL Normal 81.0-99.0 [facility] Comment on above: Performed By: #### C BC ####[facility] Olubeawlbm6502 [place] [phone]. Devin Kerwin MONO # 0.4 103/ul Normal 0.3-0.8 [facility] Comment on above: Performed By: #### C BC ####[facility] Tourwnpltt2039 [place] [phone]. Tishemily Suresh Monocytes/100 WBC (Bld) 5.2 % Normal 1.7-12.0 [facility] Comment on above: Performed By: #### C BC ####[facility] Ewtsrbxndn2458 [place] [phone]. Devin Suresh NEUT # 6.0 103/ul Normal 1.4-6.5 [facility] Comment on above: Performed By: #### C BC ####[facility] Pufbatcahu3962 [place] [phone]. Devin Suresh Neutrophils/100 WBC (Bld) 71.5 % Normal 43.0-75.[address] [facility] Comment on above: Performed By: #### C BC ####[facility] Hsyjvroxcx1257 [place] [phone]. Devin Kerwin Platelet mean volume (Bld) [Entitic vol] 8.4 fL Critically low 9.5-13.[address] [facility] Comment on above: Performed By: #### C BC ####[facility] Ugsthufhab7512 [place] [phone]. Tishemily Kerwin PLT 296 103/ul Normal 150-450 [facility] Comment on above: Performed By: #### C BC ####[facility] Irsuzcvuzc0387 [place] [phone]. Devin Kerwin RBC 4.16 106/ul Critically low 4.20-5.40 [facility] Comment on above: Performed By: #### C BC ####[facility] Vqsmmgntig6233 [place] [phone]. Devin Suresh WBC 8.4 103/ul Normal 4.0-11.[address] [facility] Comment on above: Performed By: #### C BC ####[facility] Uvgpxpqllv8047 [place] [phone]. Devin Suresh PROF 14(COMP METB)on 023 Albumin [Mass/Vol] 3.4 g/dL Normal 3.4-5.0 [facility] Comment on above: Performed By: #### C MP ####[facility] Qgrjkdmneu5005 [place] [phone]. Devin Suresh Albumin/Globulin [Mass ratio] 1.0 {ratio} Normal [facility] Comment on above: Performed By: #### C MP ####[facility] Qaenhuiwcz2287 [place] [phone]. Devin Suresh ALP [Catalytic activity/Vol] 108 U/L Normal 46-116 [facility] Comment on above: Performed By: #### C MP ####[facility] Jpaslnouzk4967 [place] [phone]. Devin Suresh ALT [Catalytic activity/Vol] 15 U/L Normal 14-[address] [facility] Comment on above: Performed By: #### C MP ####[facility] Dnginpczxc8329 [place] [phone]. Devin Suresh Anion gap [Moles/Vol] 14.6 mmol/L Normal [facility] Comment on above: Performed By: #### C MP ####[facility] Qqwwykudut7314 [place] [address]Dr. Devin Suresh AST [Catalytic activity/Vol] 11 U/L Critically low 15-[address] [facility] Comment on above: Performed By: #### C MP ####[facility] Vfujoobide[address] [place], [place] [address]Dr. Devin Suresh Bilirubin [Mass/Vol] 0.4 mg/dL Normal 0.2-1.0 [facility] Comment on above: Performed By: #### C MP ####[facility] Csswfmwyyr[address] [place], [place] [address]Dr. Devin Suresh Calcium [Mass/Vol] 8.8 mg/dL Normal 8.5-10.1 [facility] Comment on above: Performed By: #### C MP ####[facility] Fquxdaqmew4142 [place] [address]Dr. Devin Suresh Chloride [Moles/Vol] 104 mmol/L Normal 98-[address] [facility] Comment on above: Performed By: #### C MP ####[facility] Wzsgzothgj3756 [place] [address]Dr. Devin Suresh CO2 [Moles/Vol] 24.2 mmol/L Normal 21.0-32.0 [facility] Comment on above: Performed By: #### C MP ####[facility] Ajoppghgbr2472 [place] [phone]. Devin Suresh Creatinine [Mass/Vol] 1.35 mg/dL Critically high 0.55-1.[address] [facility] Comment on above: Performed By: #### C MP ####[facility] Pkiiixfsny4507 [place] [phone]. Devin Suresh EGFR-AF ARMENIAN 51 mL/min/1.73m2 Critically low >=[address] [facility] Comment on above: Performed By: #### C MP ####[facility] Pjcrykmfrx9105 [place] [phone]. Devin Suresh EGFR-NON AF ARMENIAN 42 mL/min/1.73m2 Critically low >=[address] [facility] Comment on above: Performed By: #### C MP ####[facility] Smlgknbwgr2721 [place] [phone]. Devin Suresh Globulin (S) [Mass/Vol] 3.5 g/dL Normal [facility] Comment on above: Performed By: #### C MP ####[facility] Wtkhepwmcw5309 [place] [phone]. Devin Suresh Glucose [Mass/Vol] 265 mg/dL Critically high 74-106 [facility] Comment on above: Performed By: #### C MP ####[facility] Pqcyhwewjk9670 [place] [phone]. Devin Suresh Potassium [Moles/Vol] 3.8 mmol/L Normal 3.5-5.1 [facility] Comment on above: Performed By: #### C MP ####[facility] Edrqzfzubg1697 [place] [phone]. Devin Suresh Protein [Mass/Vol] 6.9 g/dL Normal 6.4-8.2 [facility] Comment on above: Performed By: #### C MP ####[facility] Dhjhkjbfqm2042 [place] [phone]. Devin Suresh Sodium [Moles/Vol] 139 mmol/L Normal 136-145 [facility] Comment on above: Performed By: #### C MP ####[facility] Ohjtlofame0230 [place] [phone]. Devin Suresh Urea nitrogen [Mass/Vol] 23.0 mg/dL Critically high 7.0-18.0 [facility] Comment on above: Performed By: #### C MP ####[facility] Cwsedrqjbx[address] [place], [place] [phone]. Devin Kerwin Urea nitrogen/Creatinine [Mass ratio] 17.0 mg/mg Normal [facility] Comment on above: Performed By: #### C MP ####[facility] Vcvcmwtmah88[address] [place], [place] [address]Dr. Devin Kerwin CBC AUTO DIFFon 06-11-2022 BASO # 0.1 103/ul Normal 0.0-0.1 [facility] Comment on above: Performed By: #### C BC ####[facility] Rrpfgmtzxr[address] [place], [place] [address]Dr. Devin Suresh Basophils/100 WBC (Bld) 0.7 % Normal 0.2-2.0 [facility] Comment on above: Performed By: #### C BC ####[facility] Fblbqmgynv66[address] [place], [place] [address]Dr. Devin Suresh EO # 0.2 103/ul Normal 0.0-0.7 [facility] Comment on above: Performed By: #### C BC ####[facility] Mlyxhtzmzm[address] [place], [place] [address]Dr. Devin Suresh Eosinophils/100 WBC (Bld) 2.2 % Normal 0.9-7.0 [facility] Comment on above: Performed By: #### C BC ####[facility] Qbevwbszfg75[address] [place], [place] [address]Dr. Devin Suresh Erythrocyte distribution width (RBC) [Ratio] 12.5 % Normal 11.0-15.0 [facility] Comment on above: Performed By: #### C BC ####[facility] Qeymjzxawm04[address] [place], [place] [address]Dr. Tishemily Suresh Hematocrit (Bld) [Volume fraction] 40.2 % Normal 36.0-48.0 [facility] Comment on above: Performed By: #### C BC ####[facility] Ejmnbyvomk5372 [place] [address]Dr. Devin Suresh Hemoglobin (Bld) [Mass/Vol] 13.8 g/dL Normal 12.0-16.0 [facility] Comment on above: Performed By: #### C BC ####[facility] Xgotzlftlc2978 [place] [phone]. Devin Suresh IG # 0.03 10e3/ul Normal 0.00-0.03 [facility] Comment on above: Performed By: #### C BC ####[facility] Dcnbywhkex3696 [place] [address]Dr. Devin Suresh IG % 0.3 % Normal 0.0-0.5 [facility] Comment on above: Performed By: #### C BC ####[facility] S[address]zhvctugs[address] [place], [place] [address]Dr. Devin Suresh LYMPH # 2.7 103/ul Normal 1.2-3.8 [facility] Comment on above: Performed By: #### C BC ####[facility] Xcnkeuwsyd2534 [place] [address]Dr. Devin Suresh Lymphocytes/100 WBC (Bld) 26.4 % Normal 20.5-60.0 [facility] Comment on above: Performed By: #### C BC ####[facility] Tfucuhiaql0522 [place] [address]Dr. Devin Suresh MANUAL DIFF REQ NO Normal [facility] Comment on above: Performed By: #### C BC ####[facility] Baikkgtvdu59[address] [place], [place] [address]Dr. Devin Suresh MCH (RBC) [Entitic mass] 30.0 pg Normal 26.7-34.0 [facility] Comment on above: Performed By: #### C BC ####[facility] Dkyxynkpke15[address] [place], [place] [address]Dr. Devin Usresh MCHC (RBC) [Mass/Vol] 34.3 g/dL Normal 29.9-35.2 [facility] Comment on above: Performed By: #### C BC ####[facility] Tvqxnmneif8611 [place] [phone]. Devin Suresh MCV (RBC) [Entitic vol] 87.4 fL Normal 81.0-99.0 [facility] Comment on above: Performed By: #### C BC ####[facility] Oaktyedcxw3495 [place] [phone]. Devin Suresh MONO # 0.6 103/ul Normal 0.3-0.8 [facility] Comment on above: Performed By: #### C BC ####[facility] Tfhleoczis[address] [place], [place] [address]Dr. Devin Suresh Monocytes/100 WBC (Bld) 5.8 % Normal 1.7-12.0 [facility] Comment on above: Performed By: #### C BC ####[facility] Cyjvrschce[address] [place], [place] [address]Dr. Devin Suresh NEUT # 6.7 103/ul Critically high 1.4-6.5 [facility] Comment on above: Performed By: #### C BC ####[facility] Aalekmkorq5[address] [place], [place] [address]Dr. Devin Suresh Neutrophils/100 WBC (Bld) 64.6 % Normal 43.0-75.0 [facility] Comment on above: Performed By: #### C BC ####[facility] Kpuqmtbwsr50[address] [place], [place] [address]Dr. Devin Suresh Platelet mean volume (Bld) [Entitic vol] 8.7 fL Critically low 9.5-13.5 [facility] Comment on above: Performed By: #### C BC ####[facility] Ommmpyovck[address] [place], [place] [address]Dr. Devin Suresh PLT 345 103/ul Normal 150-450 [facility] Comment on above: Performed By: #### C BC ####[facility] Mxfrrvkpjl46[address] [place], [place] [address]Dr. Devin Suresh RBC 4.60 106/ul Normal 4.20-5.40 [facility] Comment on above: Performed By: #### C BC ####[facility] Xoefdtyyvw3949 [place] [phone]. Devin Suresh WBC 10.3 103/ul Normal 4.0-11.[address] [facility] Comment on above: Performed By: #### C BC ####[facility] Titatqyztc5[address] [place] [address]Dr. Devin Suresh CT HEAD WO CONon 06-11-2022 CT HEAD WO CON Normal [facility] LACTATE/LACTIC ACIDon 2022 Lactate [Moles/Vol] 1.9 mmol/L Normal 0.4-1.[address] [facility] Comment on above: Performed By: #### L ACT ####[facility] Gppbcfxufg6791 [place] [address]Dr. Devin Suresh POINT OF CARE GLUCOSEon 05-25 Glucose [Mass/Vol] 245 mg/dL Critically high 74-106 [facility] Comment on above: Performed By: #### P OCGLUC ####[facility] Nwttcxcfqd7235 [place] [address]Dr. Devin Suresh PROF 14(COMP METB)on 023 Albumin [Mass/Vol] 3.7 g/dL Normal 3.4-5.0 [facility] Comment on above: Performed By: #### C STU, HSTROPN ####[facility] Xkicmhqeag6778 [place] [address]Dr. Devin Suresh Albumin/Globulin [Mass ratio] 1.0 {ratio} Normal [facility] Comment on above: Performed By: #### C STU, HSTROPN ####[facility] Tujncbiqiy8797 [place] [address]Dr. Devin Suresh ALP [Catalytic activity/Vol] 123 U/L Critically high 46-[address] [facility] Comment on above: Performed By: #### C STU, HSTROPN ####[facility] Aqegkerarp5572 [place] [address]Dr. Devin Suresh ALT [Catalytic activity/Vol] 15 U/L Normal 14-[address] [facility] Comment on above: Performed By: #### C STU, HSTROPN ####[facility] Zvtypshoek4968 [place] [address]Dr. Devin Suresh Anion gap [Moles/Vol] 12.7 mmol/L Normal [facility] Comment on above: Performed By: #### C MP, HSTROPN ####[facility] Kupqetjter2593 [place] [address]Dr. Devin Suresh AST [Catalytic activity/Vol] 11 U/L Critically low 15-[address] [facility] Comment on above: Performed By: #### C MP, HSTROPN ####[facility] Nditjcvtvl0037 [place] [address]Dr. Devin Suresh Bilirubin [Mass/Vol] 0.4 mg/dL Normal 0.2-1.[address] [facility] Comment on above: Performed By: #### C MP, HSTROPN ####[facility] Eqbcjrkvfd6[address] [place], [place] [address]Dr. Devin Suresh Calcium [Mass/Vol] 9.5 mg/dL Normal 8.5-10.1 [facility] Comment on above: Performed By: #### C MP, HSTROPN ####[facility] Atjrmqxxlz65[address] [place], [place] [address]Dr. Devin Suresh Chloride [Moles/Vol] 105 mmol/L Normal 98-[address] [facility] Comment on above: Performed By: #### C MP, HSTROPN ####[facility] Kycrgjdhto5448 [place] [address]Dr. Devin Suresh CO2 [Moles/Vol] 27.5 mmol/L Normal 21.0-32.0 [facility] Comment on above: Performed By: #### C MP, HSTROPN ####[facility] Cwhxglhoik[address] [place], [place] [address]Dr. Devin Suresh Creatinine [Mass/Vol] 0.83 mg/dL Normal 0.55-1.[address] [facility] Comment on above: Performed By: #### C MP, HSTROPN ####[facility] Iqpeygjaaq[address] [place], [place] [address]Dr. Devin Suresh EGFR-AF ARMENIAN >60 Normal >=60 [facility] Comment on above: Performed By: #### C STU, HSTROPN ####[facility] Jcplcrtnta6264 [place] [address]Dr. Devin Suresh EGFR-NON AF ARMENIAN >60 Normal >=60 [facility] Comment on above: Performed By: #### C STU, HSTROPN ####[facility] Pprtdvgqme3058 [place] [address]Dr. Devin Suresh Globulin (S) [Mass/Vol] 3.7 g/dL Normal [facility] Comment on above: Performed By: #### C STU, HSTROPN ####[facility] Mzyzbzyshc4[address] [place], [place] [address]Dr. Devin Suresh Glucose [Mass/Vol] 66 mg/dL Critically low 74-106 [facility] Comment on above: Performed By: #### C STU, HSTROPN ####[facility] Qymzauqvwk5239 [place] [address]Dr. Devin Suresh Potassium [Moles/Vol] 3.2 mmol/L Critically low 3.5-5.[address] [facility] Comment on above: Performed By: #### C STU, HSTROPN ####[facility] Izqjmeltty3090 [place] [address]Dr. Devin Suresh Protein [Mass/Vol] 7.4 g/dL Normal 6.4-8.2 [facility] Comment on above: Performed By: #### C STU, HSTROPN ####[facility] Mcljzxmxgq0807 [place] [address]Dr. Devin Suresh Sodium [Moles/Vol] 142 mmol/L Normal 136-145 [facility] Comment on above: Performed By: #### C STU, HSTROPN ####[facility] Mfwqtbaoqb9522 [place] [address]Dr. Devin Suresh Urea nitrogen [Mass/Vol] 15.0 mg/dL Normal 7.0-18.0 [facility] Comment on above: Performed By: #### C MP, HSTROPN ####[facility] Ldcysrgbpq4097 [place] [phone]. Devin Suresh Urea nitrogen/Creatinine [Mass ratio] 18.1 mg/mg Normal [facility] Comment on above: Performed By: #### C STU HSTROPN ####[facility] Tjmgdlrwug9999 [place] [phone]. Devin Suresh TROPONIN, HIGH SENSITIVITYon 06-11-2022 HSTROP 5.5 pg/mL Normal 4.0-51.[address] [facility] Comment on above: Result Comment: CUT- OFF POINTS HAVE BEEN ESTABLISHED BASED ON THE FOURTH UNIVERSAL DEFINITIONS OF MYOCARDIALINFARCTION. THE UPPER REFERENCE LIMIT (URL) OF TROPONIN, DEFINED THE 99TH PERCENTILE OFcTnI DISTRIBUTION IN A REFERENCE POPULATION, HAS BEEN CONFIRMED THE DECISION THRESHOLDFOR DC DIAGNOSIS. Performed By: #### H STROPN ####[facility] Pqmnwntwjv9970 [place] [phone]. Devin Suresh HSTROP 5.1 pg/mL Normal 4.0-51.[address] [facility] Comment on above: Result Comment: CUT- OFF POINTS HAVE BEEN ESTABLISHED BASED ON THE FOURTH UNIVERSAL DEFINITIONS OF MYOCARDIALINFARCTION. THE UPPER REFERENCE LIMIT (URL) OF TROPONIN, DEFINED THE 99TH PERCENTILE OFcTnI DISTRIBUTION IN A REFERENCE POPULATION, HAS BEEN CONFIRMED THE DECISION THRESHOLDFOR DC DIAGNOSIS. Performed By: #### C STU HSTROPN ####[facility] Zeganlwxcm7624 [place] [phone]. Devin Suresh XR CHEST 1 Von 06-11-2022 XR CHEST 1 V Normal [facility] CHEMISTRYOrdered By: Lab ROP User on 06-02-2022 Glucose [Mass/Vol] 269 mg/dL High 55 - 99 mg/dL [facility] POC Subsection Comment on above: Result Comment: Peter yeh RN/ POC Device SN [id number] Invalid Interpretation Code FT POC Subsection POC User ID [id number] Invalid Interpretation Code FT POC Subsection POC Username ANETTE MURO Invalid Interpretation Code FT POC Subsection Glucose [Mass/Vol] 378 mg/dL High 55 - 99 mg/dL [facility] POC Subsection Comment on above: Result Comment: Prema piper Meter POC Device SN [id number] Invalid Interpretation Code [facility] POC Subsection POC User ID [id number] Invalid Interpretation Code [facility] POC Subsection POC Username JANIE SCHERER Invalid Interpretation Code [facility] POC Subsection Glucose [Mass/Vol] 492 mg/dL Invalid Interpretation Code 55 - 99 mg/dL [facility] POC Subsection POC Device SN [id number] Invalid Interpretation Code [facility] POC Subsection POC User ID [id number] Invalid Interpretation Code [facility] POC Subsection POC Username HEIDY RICE Invalid Interpretation Code [facility] [...] 0.8 mg/dL Normal 0.5 - 1.3 mg/dL FT [...] 27 U/L Normal 13 - 58 unit/L FT Remisol Potassium [Moles/Vol] 4.0 mmol/L Normal 3.5 - 5.3 mmol/L FT [...] Interpretation Code Negative [facility] UA Auto SS [place].plasma/Lithiu m.RBC (Bld) [Mass ratio] 0-3 /HPF Normal [...] Desc Clean Catch (06/02/22 6:10 PM) Normal [facility] UA Auto SS Urobilinogen Qn (U) [id number] {Sheyla'U}/dL Normal 0.0 - 1.0 EU/dL [facility] UA Auto SS WBC Auto Ql (U) Negative (06/02/22 6:10 PM) Normal Negative [facility] UA Auto SS WBC LM.HPF (Urine sed) [#/Area] 0-5 /HPF Normal 0-5/HPF [facility] UA Auto SS Yeast LM Ql (Urine sed) Trace (06/02/22 6:10 PM) Normal [facility] UA Auto SS CULTURE URINEon 04-23-2022 CULTURE URINE Normal [facility] Comment on above: Performed By: #### U RCX ####[facility] Moqkkymwmz409[address] [place], [place] [address]Dr. Devin Kerwin POINT OF CARE GLUCOSEon 03-26 Glucose [Mass/Vol] 359 mg/dL Critically high 74-106 [facility] Comment on above: Performed By: #### P OCGLUC ####[facility] Zddbyclimh9[address] [place], [place] [address]Dr. Devin Suresh AMYLASEon 04-20-2022 Amylase [Catalytic activity/Vol] 15 U/L Critically low 25-[address] [facility] Comment on above: Performed By: #### L IPA, RADHA, CMP ####[facility] Zqrfoqzpyq75[address] [place], [place] [address]Dr. Devin Suresh CBC AUTO DIFFon 04-20-2022 BASO # 0.0 103/ul Normal 0.0-0.[address] [facility] Comment on above: Performed By: #### C BC ####[facility] Mhyozjufuz4[address] [place], [place] [address]Dr. Devin Suresh Basophils/100 WBC (Bld) 0.2 % Normal 0.2-2.[address] [facility] Comment on above: Performed By: #### C BC ####[facility] Tdnagfzjxe5859 [place] [phone]. Devin Suresh EO # 0.1 103/ul Normal 0.0-0.7 [facility] Comment on above: Performed By: #### C BC ####[facility] Lvyxsufjgf4290 [place] [address]Dr. Devin Suresh Eosinophils/100 WBC (Bld) 0.7 % Critically low 0.9-7.0 [facility] Comment on above: Performed By: #### C BC ####[facility] Pezzttqvjf6[address] [place], [place] [address]Dr. Devin Suresh Erythrocyte distribution width (RBC) [Ratio] 12.7 % Normal 11.0-15.0 [facility] Comment on above: Performed By: #### C BC ####[facility] Isotfqgzuk25[address] [place], [place] [address]Dr. Devin Suresh Hematocrit (Bld) [Volume fraction] 34.7 % Critically low 36.0-48.[address] [facility] Comment on above: Performed By: #### C BC ####[facility] Wvxpduuyau[address] [place], [place] [address]Dr. Devin Suresh Hemoglobin (Bld) [Mass/Vol] 12.1 g/dL Normal 12.0-16.[address] [facility] Comment on above: Performed By: #### C BC ####[facility] Bnmrfgklwc[address] [place], [place] [address]Dr. Devin Suresh IG # 0.05 10e3/ul Critically high 0.00-0.03 [facility] Comment on above: Performed By: #### C BC ####[facility] Binwfintco16[address] [place], [place] [address]Dr. Devin Suresh IG % 0.4 % Normal 0.0-0.5 [facility] Comment on above: Performed By: #### C BC ####[facility] Rudtyhbrua[address] [place], [place] [address]Dr. Devin Suresh LYMPH # 0.3 103/ul Critically low 1.2-3.8 [facility] Comment on above: Performed By: #### C BC ####[facility] Ywimvmkznc8135 [place] [phone]. Devin Suresh Lymphocytes/100 WBC (Bld) 2.6 % Critically low 20.5-60.0 [facility] Comment on above: Performed By: #### C BC ####[facility] Pkhmyocrgt5559 [place] [phone]. Tishemily Suresh MANUAL DIFF REQ NO Normal [facility] Comment on above: Performed By: #### C BC ####[facility] Itageeulgj1709 [place] [phone]. Devin Kerwin MCH (RBC) [Entitic mass] 30.6 pg Normal 26.7-34.0 [facility] [facility] Comment on above: Performed By: #### C BC ####[facility] [address] [place], [place] [address]Dr. Devin Kerwin MCHC (RBC) [Mass/Vol] 34.9 g/dL Normal 29.9-35.2 [facility] Comment on above: Performed By: #### C BC ####[facility] Rvsjgdeypu39[address] [place] [id number]. Devin Kerwin MCV (RBC) [Entitic vol] 87.6 fL Normal 81.0-99.0 [facility] Comment on above: Performed By: #### C BC ####[facility] Nfgzdsjxwy4[address] [place] [address]Dr. Tishemily Kerwin MONO # 0.3 103/ul Normal 0.3-0.8 [facility] Comment on above: Performed By: #### C BC ####[facility] Xoxfbisbem0586 [place] [id number]. Tishemily Suresh Monocytes/100 WBC (Bld) 2.5 % Normal 1.7-12.0 [facility] Comment on above: Performed By: #### C BC ####[facility] Ymfrwuguvj[address] [place], [place] [address]Dr. Devin Suresh NEUT # 11.9 103/ul Critically high 1.4-6.5 [facility] Comment on above: Performed By: #### C BC ####[facility] Wmdqlprvxd6600 [place], [place] [address]Qn. Devin Suresh Neutrophils/100 WBC (Bld) 93.6 % Critically high 43.0-75.[address] [facility] Comment on above: Performed By: #### C BC ####[facility] Xqaxmezofo4868 [place], [place] [address]Ci. Devin Suresh Platelet mean volume (Bld) [Entitic vol] 9.2 fL Critically low 9.5-13.[address] [facility] Comment on above: Performed By: #### C BC ####[facility] Oglmbknrwh7418 [place], [place] [address]Gz. Devin Suresh PLT 288 103/ul Normal 150-450 [facility] Comment on above: Performed By: #### C BC ####[facility] Uhvheusqxh8950 [place], [place] [address]Ht. Devin Suresh RBC 3.96 106/ul Critically low 4.20-5.40 [facility] Comment on above: Performed By: #### C BC ####[facility] Aaprplevzn5378 [place], [place] [address]Zf. Devin Suresh WBC 12.8 103/ul Critically high 4.0-11.0 [facility] Comment on above: Performed By: #### C BC ####[facility] Uxwyekawgg7629 [place], [place] [address]Kk. Devin Suresh Covid-19 PCR (CVDTB)on 03-26 SARS-CoV-2 (COVID-19) RNA EBONIE+probe Ql (Unsp spec) Not detected Normal NOT DETECTED [facility] Comment on above: Result Comment: When [...] for this test is supported by the [place] of Health and Human Service's declaration that [...] be used). Performed By: #### C VDTB ####[facility] Uxmblmknzj[address] [place], [place] [address]Dr. Devin Suresh ER URINE PROFILEon 2 Bilirubin Ql (U) Negative Normal NEGATIVE [facility] Comment on above: Performed By: #### Bud ALLNE UMICRO ####[facility] Hctcujnzek[address] [place], [place] [address]Dr. Devin Suresh Clarity (U) CLEAR Normal CLEAR [facility] Comment on above: Performed By: #### Bud ALLEN UMICRO ####[facility] Pjnmjrgwvn[address] [place], [place] [address]Dr. Devin Suresh Color (U) LT. YELLOW Normal YELLOW [facility] Comment on above: Performed By: #### Bud ALLEN UMICRO ####[facility] Igjmvuhsgg[address] [place], [place] [address]Dr. Devin Suresh ERUAHD A micrscopic examina tion will be performed if indicated. Normal [facility] Comment on above: Performed By: #### Bud ALLEN UMICRO ####[facility] Lhozglaqrr5[address] [place], [place] [address]Dr. Devin Suresh Glucose Ql (U) >1000 Abnormal NEGATIVE [facility] Comment on above: Performed By: #### Bud ALLEN UMICRO ####[facility] Gdpzefvrgk5[address] [place], [place] [address]Dr. Devin Suresh Hemoglobin Ql (U) TRACE-INTACT Abnormal NEGATIVE [facility] Comment on above: Performed By: #### Bud ALLEN UMICRO ####[facility] Dpbmcxndcd4[address] [place], [place] [address]Dr. Devin Suresh Ketones Ql (U) TRACE Abnormal NEGATIVE [facility] Comment on above: Performed By: #### REAGAN STARRRO ####[facility] Jceeiequpq[address] [place], [place] [address]Dr. Devin Suresh LEUKOCYTES Negative Normal NEGATIVE [facility] Comment on above: Performed By: #### REAGAN STARRRO ####[facility] Zqnzygsmqo4484 [place] [address]Dr. Devin Suresh Nitrite Ql (U) Positive Abnormal NEGATIVE [facility] Comment on above: Performed By: #### Bud ALLEN ICRO ####[facility] Aefmvxpyum1666 [place] [address]Dr. Devin Suresh pH (U) 5.0 [pH] Normal 5-[address] [facility] Comment on above: Performed By: #### Bud ALLEN FLORENTINORO ####[facility] Hlmurkknro65[address] [place], [place] [address]Dr. Devin Suresh SPEC GRAVITY 1.015 Normal 1.005-<=1.[address] [place] [address] Comment on above: Performed By: #### Bud ALLEN FLORENTINORO ####[facility] Bzpbexkuhf[address] [place], [place] [address]Dr. Devin Suresh UA PROTEIN Negative Normal NEGATIVE/ TRACE [facility] Comment on above: Performed By: #### Bud ALLEN FLORENTINORO ####[facility] Cuoppborpo[address] [place], [place] [address]Dr. Devin Suresh UR MICRO IND INDICATED Normal [facility] Comment on above: Performed By: #### REAGAN STARRRO ####[facility] Wdvjmhxpoe[address] [place], [place] [address]Dr. Devin Suresh Urobilinogen Qn (U) 0.2 {Sheyla'U}/dL Normal 0.2 - 1. [address] [facility] Comment on above: Performed By: #### REAGAN STARRRO ####[facility] Ucbqlqustm[address] [place], [place] [address]Dr. Devin Suresh INFLUENZA A AND B AGon 04-20 INFLUENZA A AG Negative Normal NEGATIVE SEE COMMENT [facility] Comment on above: Performed By: #### R SV, INFLUAB ####[facility] Zndftoezqf[address] [place], [place] [address]Dr. Devin Suresh INFLUENZA B AG Negative Normal NEGATIVE SEE COMMENT [facility] Comment on above: Performed By: #### R SV, INFLUAB ####[facility] Bgxhqjuyqo[address] [place], [place] [address]Dr. Devin Suresh INFLUPOSH SEE BELOW Normal [facility] Comment on above: Result Comment: NOTE : Live attenuated influenzae vaccine viruses can cause a positive result for a rapid influenza diagnostic test if administered up to 7 days prior to rapid testing. Performed By: #### R SV, INFLUAB ####[facility] Rcpdjhlhnf[address] [place], [place] [address]Dr. Devin Suresh INFLUPOSHB SEE BELOW Normal [facility] Comment on above: Result Comment: NOTE : Live attenuated influenzae vaccine viruses can cause a positive result for a rapid influenza diagnostic test if administered up to 7 days prior to rapid testing. Performed By: #### R SV, INFLUAB ####[facility] Qtoprlkydc4[address] [place], [place] [address]Dr. Devin Suresh INTERNAL CONTROLS Within Normal Limits Normal Wi thin Normal Limits [facility] Comment on above: Performed By: #### R SV, INFLUAB ####[facility] Jnrinvsfbc11[address] [place], [place] [address]Dr. Devin Suresh LACTATE/LACTIC ACIDon 2021 Lactate [Moles/Vol] 1.9 mmol/L Normal 0.4-1.[address] [facility] Comment on above: Performed By: #### L ACT ####[facility] Xlkrqfvnlc[address] [place], [place] [address]Dr. Devin Suresh LIPASEon 04-20-2022 Lipase [Catalytic activity/Vol] 111.0 U/L Normal 73.0-393.[address] [facility] Comment on above: Performed By: #### L RADHA DELAROSA, CMP ####[facility] Ufgoujuxmx4[address] [place], [place] [address]Dr. Tishemily Suresh POINT OF CARE GLUCOSEon 03-26 Glucose [Mass/Vol] 573 mg/dL Critically high 74-106 [facility] Comment on above: Result Comment: Lab Draw Ordered Performed By: #### P OCGLUC ####[facility] Cfjfvxysvi7241 [place] [address]Dr. Devin Suresh PROF 14(COMP METB)on 022 Albumin [Mass/Vol] 3.4 g/dL Normal 3.4-5.0 [facility] Comment on above: Performed By: #### L RADHA DELAROSA, CMP ####[facility] Jwbjmavynd1328 [place] [address]Dr. Devin Suresh Albumin/Globulin [Mass ratio] 0.9 {ratio} Normal [facility] Comment on above: Performed By: #### L RADHA DELAROSA, CMP ####[facility] Bjadgtykvl7499 [place] [address]Dr. Devin Suresh ALP [Catalytic activity/Vol] 132 U/L Critically high 46-[address] [facility] Comment on above: Performed By: #### L RADHA DELAROSA, CMP ####[facility] Gpmdtofkmr3991 [place] [address]Dr. Devin Suresh ALT [Catalytic activity/Vol] 16 U/L Normal 14-[address] [facility] Comment on above: Performed By: #### L RADHA DELAROSA, CMP ####[facility] Puajgolydk7932 [place] [address]Dr. Devin Suresh Anion gap [Moles/Vol] 12.3 mmol/L Normal [facility] Comment on above: Performed By: #### L RADHA DELAROSA, CMP ####[facility] Fglwkfbwwt5141 [place] [address]Dr. Devin Suresh AST [Catalytic activity/Vol] 9 U/L Critically low 15-[address] [facility] Comment on above: Performed By: #### L RADHA DELAROSA, CMP ####[facility] Eztbuksknn27[address] [place] [address]Dr. Devin Suresh Bilirubin [Mass/Vol] 0.9 mg/dL Normal 0.2-1.[address] [facility] Comment on above: Performed By: #### L RADHA DELAROSA, CMP ####[facility] Gdshaxnzdm1723 [place] [id number]. Devin Suresh Calcium [Mass/Vol] 9.0 mg/dL Normal 8.5-10.1 [facility] Comment on above: Performed By: #### L RADHA DELAROSA, CMP ####[facility] Qsrnvgjifw7916 [place] [address]Dr. Devin Suresh Chloride [Moles/Vol] 96 mmol/L Critically low 98-107 [facility] Comment on above: Performed By: #### L RADHA DELAROSA, CMP ####[facility] Zjvvizrwab9535 [place] [address]Dr. Devin Suresh CO2 [Moles/Vol] 26.0 mmol/L Normal 21.0-32.0 [facility] Comment on above: Performed By: #### L RADHA DELAROSA, CMP ####[facility] Gcokyddfln[address] [place], [place] [address]Dr. Devin Kerwin Creatinine [Mass/Vol] 1.15 mg/dL Critically high 0.55-1.[address] [facility] Comment on above: Performed By: #### L RADHA DELAROSA, CMP ####[facility] Qmnzotmlqf[address] [place], [place] [address]Dr. Devin Kerwin EGFR-AF ARMENIAN >60 Normal >=60 [facility] Comment on above: Performed By: #### L RADHA DELAROSA, CMP ####[facility] Ibghdprrmb69[address] [place], [place] [address]Dr. Devin Kerwin EGFR-NON AF ARMENIAN 51 mL/min/1.73m2 Critically low >=[address] [facility] Comment on above: Performed By: #### L RADHA DELAROSA, CMP ####[facility] Daonnpagms5750 [place] [address]Dr. Tishemily Suresh Globulin (S) [Mass/Vol] 3.7 g/dL Normal [facility] Comment on above: Performed By: #### L IPA RADHA, CMP ####[facility] Rrxavbzweb0099 [place] [address]Dr. Devin Suresh Glucose [Mass/Vol] 590 mg/dL Critically high 74-106 [facility] Comment on above: Performed By: #### L RADHA DELAROSA, CMP ####[facility] Tpzlevuafn3323 [place] [address]Dr. Devin Suresh Potassium [Moles/Vol] 4.3 mmol/L Normal 3.5-5.[address] [facility] Comment on above: Performed By: #### L RADHA DELAROSA, CMP ####[facility] Wyknmaasmm5006 [place] [address]Dr. Devin Suresh Protein [Mass/Vol] 7.1 g/dL Normal 6.4-8.2 [facility] Comment on above: Performed By: #### L RADHA DELAROSA, CMP ####[facility] Cccjirxrpf[address] [place], [place] [address]Dr. Devin Suresh Sodium [Moles/Vol] 130 mmol/L Critically low 136-145 [facility] Comment on above: Performed By: #### L RADHA DELAROSA, CMP ####[facility] Mpthyodxtt[address] [place], [place] [address]Dr. Devin Suresh Urea nitrogen [Mass/Vol] 22.0 mg/dL Critically high 7.0-18.[address] [facility] Comment on above: Performed By: #### L RADHA DELAROSA, CMP ####[facility] Cvhzvpxkly49[address] [place], [place] [address]Dr. Devin Suresh Urea nitrogen/Creatinine [Mass ratio] 19.1 mg/mg Normal [facility] Comment on above: Performed By: #### L RADHA DELAROSA, CMP ####[facility] Uyynzwstmx8[address] [place], [place] [address]Dr. Devin Suresh RSVon 04-20-2022 RSV AG Negative Normal NEGATIVE [facility] Comment on above: Performed By: #### R SV, INFLUAB ####[facility] Spzjmhcigh8[address] [place], [place] [address]Dr. Devin Suresh URINE MICROSCOPIC ONLYon BACTERIA MODERATE Abnormal NONE SEEN [facility] Comment on above: Performed By: #### E REAGAN ALLENRO ####[facility] Hvofdgpiuy[address] [place], [place] [address]Dr. Devin Suresh Bacteria identified Cx Nom (U) INDICATED Normal [facility] Comment on above: Performed By: #### Bud ALLEN, UMICRO ####[facility] Fztgubziql0892 [place] [address]Dr. Devin Suresh CAST NONE SEEN Normal NONE SEEN [facility] Comment on above: Performed By: #### E RUR, UMICRO ####[facility] Lpdxcxoenp2807 [place] [address]Dr. Devin Suresh Crystals LM Nom (Urine sed) NONE SEEN Normal NONE SEEN [facility] Comment on above: Performed By: #### E ALEJANDRO, UMICRO ####[facility] Nbzkblzcrf7[address] [place], [place] [address]Dr. Devin Suresh Epithelial cells LM Ql (Urine sed) RARE Normal NONE SEEN /RARE [facility] Comment on above: Performed By: #### Bud ALLEN, UMICRO ####[facility] Tspljgikiv[address] [place], [place] [address]Dr. Devin Suresh MUCOUS NONE SEEN Normal NONE SEEN [facility] Comment on above: Performed By: #### Bud ALLEN, UMICRO ####[facility] Xbwczxlame8[address] [place], [place] [address]Dr. Devin Suresh RBC NONE SEEN Abnormal 0-2 [facility] Comment on above: Performed By: #### Bud ALLEN, UMICRO ####[facility] Rrdxqoegfg9[address] [place], [place] [address]Dr. Devin Suresh WBC 2-5 Abnormal NONE SEEN [facility] Comment on above: Performed By: #### Bud ALLEN, UMICRO ####[facility] Bxuraztdad4[address] [place], [place] [address]Dr. Devin Suresh XR CHEST 2 Von 04-20-2022 XR CHEST 2 V Normal [facility] CHEMISTRYOrdered By: Lab ROP User on 04-09-2022 Glucose [Mass/Vol] 105 mg/dL High 55 - 99 mg/dL [facility] POC Subsection Comment on above: Result Comment: Peter yeh RN/ POC Device SN [id number] Invalid Interpretation Code [facility] POC Subsection POC User ID [id number] Invalid Interpretation Code [facility] POC Subsection POC Username Michi Huynh Invalid Interpretation Code [facility] POC Subsection Glucose [Mass/Vol] 50 mg/dL Low 55 - 99 mg/dL [facility] POC Subsection Comment on above: Result Comment: Peter yeh RN/ POC Device SN [id number] Invalid Interpretation Code [facility] POC Subsection POC User ID [id number] Invalid Interpretation Code [facility] POC Subsection POC Username BiggpiotrMichi bull Invalid Interpretation Code [facility] POC Subsection Glucose [Mass/Vol] 53 mg/dL Low 55 - 99 mg/dL [facility] POC Subsection Comment on above: Result Comment: Peter SERNA POC Device SN [id number] Invalid Interpretation Code [facility] POC Subsection POC User ID [id number] Invalid Interpretation Code [facility] POC Subsection POC Username Michi Huynh Invalid Interpretation Code [facility] POC Subsection CHEMISTRYOrdered By: SYSTEM SYSTEM on 04-08-2022 Anion gap [Moles/Vol] 4 mmol/L Low 6 - 16 mEq/L [facility] 3.7 mmol/L Normal 3.5 - 5.3 mmol/L [facility] Remisol Sodium [Moles/Vol] 137 mmol/L Normal 135 - 145 mmol/L [facility] Urea nitrogen [Mass/Vol] 27 mg/dL High 5 - 21 mg/dL [facility] Urea nitrogen/Creatinine [Mass ratio] 24 mg/mg High 10 - [facility] CHEMISTRYOrdered By: SYSTEM SYSTEM on 04-07-2022 Anion gap [Moles/Vol] 11 mmol/L Normal 6 - 16 mEq/L [facility] Calcium [Mass/Vol] 8.8 mg/dL Low 8.9 - 11. 1 mg/dL [facility] Chloride [Moles/Vol] 102 mmol/L Normal 101 - 1 11 mmol/L [facility] CO2 [Moles/Vol] 22 mmol/L Normal 21 - 31 mmol/L [facility] Creatinine [Mass/Vol] 1.0 mg/dL Normal 0.5 - 1.3 mg/dL [facility] GFR/1.73 sq M.predicted among blacks MDRD (S/P/Bld) [Vol rate/Area] mL/min/1.73 m2 Normal >=59mL/min/ 1.73 m2 [facility] Chem S GFR/1.73 sq M.predicted among non-blacks MDRD (S/P/Bld) [Vol rate/Area] 60 mL/min/1.73 m2 Normal >=59mL/min/ 1.73 m2 [facility] Chem S Glucose [Mass/Vol] 372 mg/dL High 55 - 199 mg/dL [facility] Potassium [Moles/Vol] 4.4 mmol/L Normal 3.5 - 5.3 mmol/L [facility] Sodium [Moles/Vol] 131 mmol/L Low 135 - 145 mmol/L [facility] Urea nitrogen [Mass/Vol] 19 mg/dL Normal 5 - 21 mg/dL [facility] Urea nitrogen/Creatinine [Mass ratio] 19 mg/mg Normal - 20 [facility] 25-hydroxyvitamin D3 [Mass/Vol] 8.1 ng/mL Low 30.0 - 100.0 ng/mL [facility] Albumin [Mass/Vol] 3.4 g/dL Normal 3.3 - 5.0 gm/dL [facility] [...] - 4.0 gm/dL [facility] Remisol Glucose [Mass/Vol] 419 mg/dL High 55 - 199 mg/dL [facility] Rem[facility] Lipase [Catalytic activity/Vol] 22 U/L Normal 13 - 58 unit/L [facility] Magnesium [Mass/Vol] 1.5 mg/dL Normal 1.3 - 2 .4 mg/dL [facility] Remisol Phosphate [Mass/Vol] 3.7 mg/dL Normal 1.9 - 4 .6 mg/dL [facility] Remisol Potassium [Moles/Vol] 4.2 mmol/L Normal 3.5 - 5.3 mmol/L [facility] Protein [Mass/Vol] 6.6 g/dL Normal 6.0 - 7.8 gm/dL [facility] Sodium [Moles/Vol] 133 mmol/L Low 135 - 145 mmol/L [facility] Remisol Urea nitrogen [Mass/Vol] 19 mg/dL Normal 5 - 21 mg/dL [facility] Remisol Urea nitrogen/Creatinine [Mass ratio] 21 mg/mg High 10 - 20 [facility] Remisol Beta hydroxybutyrate [Moles/Vol] 0.51 mmol/L High 0.02 - 0.27 mmol/L [facility] CHEMISTRYOrdered By: Don Montes on 04-07-2022 HbA1c (Bld) [Mass fraction] 9.7 % High <=5.9% [facility] ChemAutoSS CHEMISTRYOrdered By: Mary Lou Salas on 04-06-2022 Natriuretic peptide B (Bld) [Mass/Vol] 11 pg/mL Normal 5 - 80 pg/mL [facility] HemeManSS CHEMISTRYOrdered By: SYSTEM SYSTEM on 04-06-2022 Troponin I.cardiac [Mass/Vol] 4.50 pg/mL Low 10.10 - 27.10 pg/mL [facility] Remisol HEMATOLOGYOrdered By: SYSTEM SYSTEM on 04-06-2022 Basophils/100 WBC (Bld) 1.6 % Normal 0.0 - 2.0 % [facility] HemeAutoSS Basophils/Leukocytes Auto (Bld) [Pure # fraction] 0.1 E9/L Normal 0.0 - 0.2 E9/L [facility] HemeAutoSS Eosinophils/100 WBC (Bld) 2.2 % Normal 0.0 - 8.0 % FT [...] 13.6 % Normal 10.9 - 14.2 % [facility] HemeAutoSS Hematocrit (Bld) [Volume fraction] 38.9 % Normal 34.0 - 46.0 % [facility] HemeAutoSS Hemoglobin (Bld) [Mass/Vol] 13.3 g/dL Normal [...] 279.0 E9/L Normal 150.0 - 500.0 E9/L [facility] HemeAutoSS RBC (Bld) [#/Vol] 4.4 E12/L Normal 4.3 - 5.9 E12/L [facility] HemeAutoSS WBC corrected for nucl RBC Auto (Bld) [#/Vol] 5.7 E9/L Normal 4.0 - 11.0 E9/L [facility] HemeAutoSS No Panel InformationOrdered By: ANGPROCESSSERVER MICROBIOLOGY on 04-06-2022 Blood Culture Charcoal No growth at 2 days. Final to follow at [address] [facility] [address] STROKE HEAD WOon 03-31-20 CT STROKE HEAD WO Normal [facility] POINT OF CARE GLUCOSEon 11-0 Glucose [Mass/Vol] 178 mg/dL Critically high 74-106 [facility] Comment on above: Performed By: #### P OCGLUC ####[facility] K[address]fsilqdxh6[address] [place] [address]Dr. Devin Suresh XR CHEST 1 Von 03-31-2022 XR CHEST 1 V Normal [facility] CBC AUTO DIFFon 03-05-2022 BASO # 0.0 103/ul Normal 0.0-0.[address] [facility] Comment on above: Performed By: #### C BC ####[facility] Pcgjfwluee15[address] [place] [address]Dr. Devin Suresh Basophils/100 WBC (Bld) 0.2 % Normal 0.2-2.[address] [facility] Comment on above: Performed By: #### C BC ####[facility] Lfcniktyun[address] [place] [address]Dr. Devin Suresh EO # 0.0 103/ul Normal 0.0-0.[address] [facility] Comment on above: Performed By: #### C BC ####[facility] Teqgiyohwa[address] [place] [address]Dr. Devin Suresh Eosinophils/100 WBC (Bld) 0.1 % Critically low 0.9-7.[address] [facility] Comment on above: Performed By: #### C BC ####[facility] Jkizxitiww0332 [place] [address]Dr. Devin Suresh Erythrocyte distribution width (RBC) [Ratio] 13.0 % Normal 11.0-15.[address] [facility] Comment on above: Performed By: #### C BC ####[facility] Fnabhvdarl9682 [place] [address]Dr. Devin Suresh Hematocrit (Bld) [Volume fraction] 35.3 % Critically low 36.0-48.0 [facility] Comment on above: Performed By: #### C BC ####[facility] Zsecnspoap8141 [place] [address]Dr. Devin Suresh Hemoglobin (Bld) [Mass/Vol] 11.9 g/dL Critically low 12.0-16.[address] [facility] Comment on above: Performed By: #### C BC ####[facility] Nlcujlmvep4106 [place] [address]Dr. Devin Suresh IG # 0.09 10e3/ul Critically high 0.00-0.03 [facility] Comment on above: Performed By: #### C BC ####[facility] Ebeteetiaj6860 [place] [address]Dr. Devin Suresh IG % 0.7 % Critically high 0.0-0.5 [facility] Comment on above: Performed By: #### C BC ####[facility] Qhammhycvr[address] [place], [place] [address]Dr. Devin Suresh LYMPH # 2.3 103/ul Normal 1.2-3.8 [facility] Comment on above: Performed By: #### C BC ####[facility] Rrdrqddsgi[address] [place], [place] [address]Dr. Devin Suresh Lymphocytes/100 WBC (Bld) 17.3 % Critically low 20.5-60.[address] [facility] Comment on above: Performed By: #### C BC ####[facility] Pxcjctupkh8[address] [place], [place] [address]Dr. Devin Suresh MANUAL DIFF REQ NO Normal [facility] Comment on above: Performed By: #### C BC ####[facility] Gpckjzbkct8[address] [place], [place] [address]Dr. Devin Suresh MCH (RBC) [Entitic mass] 30.9 pg Normal 26.7-34.0 [facility] Comment on above: Performed By: #### C BC ####[facility] Tujkcqyrvi[address] [place], [place] [address]Dr. Devin Kerwin MCHC (RBC) [Mass/Vol] 33.7 g/dL Normal 29.9-35.2 [facility] Comment on above: Performed By: #### C BC ####[facility] Hdixopoqrs6071 [place] [id number]. Devin Suresh MCV (RBC) [Entitic vol] 91.7 fL Normal 81.0-99.0 [facility] Comment on above: Performed By: #### C BC ####[facility] Rkyijbbptn1912 [place] [id number]. Devin Suresh MONO # 0.6 103/ul Normal 0.3-0.8 [facility] Comment on above: Performed By: #### C BC ####[facility] Lfpkvcwmzq5021 [place] [id number]. Devin Kerwin Monocytes/100 WBC (Bld) 4.6 % Normal 1.7-12.0 [facility] Comment on above: Performed By: #### C BC ####[facility] [address]xbki[address] [place], [place] [address]Dr. Devin Suresh NEUT # 10.2 103/ul Critically high 1.4-6.5 [facility] Comment on above: Performed By: #### C BC ####[facility] Qghcwbcmmr2790 [place] [id number]. Devin Suresh Neutrophils/100 WBC (Bld) 77.1 % Critically high 43.0-75.0 [facility] Comment on above: Performed By: #### C BC ####[facility] [address]ys[address] [place], [place] [address]Dr. Devin Suresh Platelet mean volume (Bld) [Entitic vol] 9.4 fL Critically low 9.5-13.5 [facility] Comment on above: Performed By: #### C BC ####[facility] [address]pm[address]obk[address] [place], [place] [address]Dr. Devin Kerwin PLT 382 103/ul Normal 150-450 [facility] Comment on above: Performed By: #### C BC ####[facility] Slfdkpatts5694 [place] [id number]. Devin Kerwin RBC 3.85 106/ul Critically low 4.20-5.40 [facility] Comment on above: Performed By: #### C BC ####[facility] [address]ms[address]uupna4[address] [place] [id number]. Devin Suresh WBC 13.2 103/ul Critically high 4.0-11.0 [facility] Comment on above: Performed By: #### C BC ####[facility] Mvewnyvxzn6352 [place] [id number]. Devin Suresh CT HEAD WO CONon 03-05-2022 CT HEAD WO CON Normal [facility] CTA HEAD WO W CONon 03-05-20 CTA HEAD WO W CON Normal [facility] GLYCOHEMOGLOBIN A1Con 2021 ADA RECOMMENDATION SEE BELOW Normal [facility] Comment on above: Result Comment: ADA RECOMMENDED LIMIT 4.0 - 6.0 ADA THERAPEUTIC TARGET < 7.0 ACTION SUGGESTED > 7.0 Performed By: #### A 1C ####[facility] Ecykzhekqd[address] [place] [address]Dr. Devin Suresh Glucose [Mass/Vol] 249 mg/dL Normal [facility] Comment on above: Performed By: #### A 1C ####[facility] B[address]uf[address] [place], [place] [address]Dr. Devin Suresh HbA1c (Bld) [Mass fraction] 10.3 % Critically high 4.5-6.[address] [facility] Comment on above: Performed By: #### A 1C ####[facility] Rdbvyfheke[address] [place] [address]Dr. Devin Suresh POINT OF CARE GLUCOSEon 02-22 Glucose [Mass/Vol] 276 mg/dL Critically high 74-106 [facility] Comment on above: Performed By: #### P OCGLUC ####[facility] Dteadctoar26[address] [place] [address]Dr. Devin Sruesh Glucose [Mass/Vol] 209 mg/dL Critically high 74-106 [facility] Comment on above: Performed By: #### P OCGLUC ####[facility] Ajojkdpaon4307 [place] [address]Dr. Devin Suresh Glucose [Mass/Vol] 286 mg/dL Critically high 74-106 [facility] Comment on above: Performed By: #### P OCGLUC ####[facility] Amyqgeinoz[address] [place], [place] [address]Dr. Devin Suresh PROF 14(COMP METB)on 022 Albumin [Mass/Vol] 2.9 g/dL Critically low 3.4-5.0 [facility] Comment on above: Performed By: #### C MP ####[facility] Nnadocdvxi[address] [place], [place] [address]Dr. Devin Suresh Albumin/Globulin [Mass ratio] 0.9 {ratio} Normal [facility] Comment on above: Performed By: #### C MP ####[facility] Ypitfgrddk[address] [place], [place] [address]Dr. Devin Suresh ALP [Catalytic activity/Vol] 109 U/L Normal 46-[address] [facility] Comment on above: Performed By: #### C MP ####[facility] Jvvzkzxyno[address] [place], [place] [address]Dr. Devin Suresh ALT [Catalytic activity/Vol] 13 U/L Critically low 14-[address] [facility] Comment on above: Performed By: #### C MP ####[facility] Iesixmrgdb[address] [place], [place] [address]Dr. Devin Suresh Anion gap [Moles/Vol] 12.1 mmol/L Normal [facility] Comment on above: Performed By: #### C MP ####[facility] Xpygkkefbq8[address] [place], [place] [address]Dr. Devin Suresh AST [Catalytic activity/Vol] 6 U/L Critically low 15-[address] [facility] Comment on above: Performed By: #### C MP ####[facility] Ryyofkhjpn[address] [place], [place] [address]Dr. Devin Suresh Bilirubin [Mass/Vol] 0.4 mg/dL Normal 0.2-1.[address] [facility] Comment on above: Performed By: #### C MP ####[facility] Lbpnodkluk[address] [place], [place] [address]Dr. Devin Suresh Calcium [Mass/Vol] 8.6 mg/dL Normal 8.5-10.1 [facility] Comment on above: Performed By: #### C MP ####[facility] Ftivvciwrj27[address] [place] [address]Dr. Devin Suresh Chloride [Moles/Vol] 105 mmol/L Normal 98-[address] [facility] Comment on above: Performed By: #### C MP ####[facility] Dgfzekjnxk3413 [place] [address]Dr. Devin Suresh CO2 [Moles/Vol] 25.4 mmol/L Normal 21.0-32.0 [facility] Comment on above: Performed By: #### C MP ####[facility] Onnzucvmnn8[address] [place], [place] [address]Dr. Devin Suresh Creatinine [Mass/Vol] 1.38 mg/dL Critically high 0.55-1.[address] [facility] Comment on above: Performed By: #### C MP ####[facility] Rleosejqhw69[address] [place], [place] [address]Dr. Devin Suresh EGFR-AF ARMENIAN 50 mL/min/1.73m2 Critically low >=[address] [facility] Comment on above: Performed By: #### C MP ####[facility] Drnkiyjnrp40[address] [place], [place] [address]Dr. Devin Suresh EGFR-NON AF ARMENIAN 42 mL/min/1.73m2 Critically low >=[address] [facility] Comment on above: Performed By: #### C MP ####[facility] Qupmjvbqzn8320[address] [place], [place] [address]Dr. Devin Surseh Globulin (S) [Mass/Vol] 3.3 g/dL Normal [facility] Comment on above: Performed By: #### C MP ####[facility] Mwsjkkguoa12[address] [place], [place] [address]Dr. Devin Suresh Glucose [Mass/Vol] 258 mg/dL Critically high 74-106 [facility] Comment on above: Performed By: #### C MP ####[facility] Xgbqdmunmq32[address] [place], [place] [address]Dr. Devin Suresh Potassium [Moles/Vol] 4.5 mmol/L Normal 3.5-5.[address] [facility] Comment on above: Performed By: #### C MP ####[facility] Vsgikzyuid9785 [place] [address]Dr. Devin Kerwin Protein [Mass/Vol] 6.2 g/dL Critically low 6.4-8.2 [facility] Comment on above: Performed By: #### C MP ####[facility] Jrzkegmdlo1060 [place] [address]Dr. Devin Suresh Sodium [Moles/Vol] 138 mmol/L Normal 136-145 [facility] Comment on above: Performed By: #### C MP ####[facility] Sndbgxntbk[address] [place], [place] [address]Dr. Devin Suresh Urea nitrogen [Mass/Vol] 22.0 mg/dL Critically high 7.0-18.[address] [facility] Comment on above: Performed By: #### C MP ####[facility] Mijxowrhbb[address] [place], [place] [address]Dr. Devin Suresh Urea nitrogen/Creatinine [Mass ratio] 15.9 mg/mg Normal [facility] Comment on above: Performed By: #### C MP ####[facility] Llkkxeqlnd[address] [place], [place] [address]Dr. Tishemily Suresh CARDIAC LAURA 3-6on 2 CK [Catalytic activity/Vol] 46 U/L Normal 26-[address] [facility] Comment on above: Performed By: #### C MREP ####[facility] Agejkzzmfh2496[address] [place], [place] [address]Dr. Devin Suresh CK.MB [Mass/Vol] 0.87 ng/mL Normal <=3.60 [facility] Comment on above: Performed By: #### C MREP ####[facility] Qhwghgsxbm06[address] [place], [place] [address]Dr. Tishemily Kerwin HSTROP 8.1 pg/mL Normal 4.0-51.3 [facility] Comment on above: Result Comment: CUT- OFF POINTS HAVE BEEN ESTABLISHED BASED ON THE FOURTH UNIVERSAL DEFINITIONS OF MYOCARDIALINFARCTION. THE UPPER REFERENCE LIMIT (URL) OF TROPONIN, DEFINED THE 99TH PERCENTILE OFcTnI DISTRIBUTION IN A REFERENCE POPULATION, HAS BEEN CONFIRMED THE DECISION THRESHOLDFOR DC DIAGNOSIS. Performed By: #### C MREP ####[facility] Ezvccoaipx6319 [place] [address]Dr. Devin Suresh CK [Catalytic activity/Vol] 51 U/L Normal 26-192 [facility] Comment on above: Performed By: #### C MREP ####[facility] Sqbmjtybkx7573 [place] [address]Dr. Devin Suresh CK.MB [Mass/Vol] 0.85 ng/mL Normal <=3.60 [facility] Comment on above: Performed By: #### C MREP ####[facility] Frvagkqpad8725[address] [place], [place] [address]Dr. Tishemily Suresh HSTROP 10.8 pg/mL Normal 4.0-51.3 [facility] Comment on above: Result Comment: CUT- OFF POINTS HAVE BEEN ESTABLISHED BASED ON THE FOURTH UNIVERSAL DEFINITIONS OF MYOCARDIALINFARCTION. THE UPPER REFERENCE LIMIT (URL) OF TROPONIN, DEFINED THE 99TH PERCENTILE OFcTnI DISTRIBUTION IN A REFERENCE POPULATION, HAS BEEN CONFIRMED THE DECISION THRESHOLDFOR DC DIAGNOSIS. Performed By: #### C MREP ####[facility] Gyltfmfkuf7[address] [place], [place] [address]Dr. Tishemily Suresh CBC AUTO DIFFon 03-04-2022 BASO # 0.1 103/ul Normal 0.0-0.1 [facility] Comment on above: Performed By: #### C BC ####[facility] Hwnqdgmxoy03[address] [place] [address]Dr. Devin Suresh Basophils/100 WBC (Bld) 0.8 % Normal 0.2-2.0 [facility] Comment on above: Performed By: #### C BC ####[facility] Cgsfzzsgwo[address] [place], [place] [address]Dr. Devin Suresh EO # 0.2 103/ul Normal 0.0-0.7 [facility] Comment on above: Performed By: #### C BC ####[facility] Mfkclgkspm[address] [place], [place] [address]Dr. Devin Suresh Eosinophils/100 WBC (Bld) 2.0 % Normal 0.9-7.0 [facility] Comment on above: Performed By: #### C BC ####[facility] Gyyhecydvd2048 [place] [address]Dr. Devin Suresh Erythrocyte distribution width (RBC) [Ratio] 13.1 % Normal 11.0-15.0 [facility] Comment on above: Performed By: #### C BC ####[facility] Dpbhoolwgx[address] [place], [place] [address]Dr. Devin Suresh Hematocrit (Bld) [Volume fraction] 35.0 % Critically low 36.0-48.0 [facility] Comment on above: Performed By: #### C BC ####[facility] Uevxezrpki[address] [place], [place] [address]Dr. Devin Suresh Hemoglobin (Bld) [Mass/Vol] 11.9 g/dL Critically low 12.0-16.0 [facility] Comment on above: Performed By: #### C BC ####[facility] Odgzihfizp0[address] [place], [place] [address]Dr. Devin Suresh IG # 0.05 10e3/ul Critically high 0.00-0.03 [facility] Comment on above: Performed By: #### C BC ####[facility] Xfkrcjmhei[address] [place], [place] [address]Dr. Devin Suresh IG % 0.5 % Normal 0.0-0.5 [facility] Comment on above: Performed By: #### C BC ####[facility] Jboslyiwpc[address] [place], [place] [address]Dr. Devin Suresh LYMPH # 3.4 103/ul Normal 1.2-3.8 [facility] Comment on above: Performed By: #### C BC ####[facility] Aciuidjnhc[address] [place], [place] [address]Dr. Devin Suresh Lymphocytes/100 WBC (Bld) 34.2 % Normal 20.5-60.0 [facility] Comment on above: Performed By: #### C BC ####[facility] Czhbfirwaw14[address] [place] [address]Dr. Devin Kerwin MANUAL DIFF REQ NO Normal [facility] Comment on above: Performed By: #### C BC ####[facility] Fjxkuhnecm1642 [place] [id number]. Devin Kerwin MCH (RBC) [Entitic mass] 30.6 pg Normal 26.7-34.0 [facility] Comment on above: Performed By: #### C BC ####[facility] Hyfkpzyios[address] [place] [address]Dr. Devin Kerwin MCHC (RBC) [Mass/Vol] 34.0 g/dL Normal 29.9-35.2 [facility] Comment on above: Performed By: #### C BC ####[facility] Ekgiqmphvn2794 [place] [address]Dr. Tishemily Suresh MCV (RBC) [Entitic vol] 90.0 fL Normal 81.0-99.0 [facility] Comment on above: Performed By: #### C BC ####[facility] Lfzjjvmljy8547 [place] [address]Dr. Devin Kerwin MONO # 0.7 103/ul Normal 0.3-0.8 [facility] Comment on above: Performed By: #### C BC ####[facility] Xmcitbsqfq7185 [place] [address]Dr. Tishemily Suresh Monocytes/100 WBC (Bld) 6.6 % Normal 1.7-12.0 [facility] Comment on above: Performed By: #### C BC ####[facility] Zfrcenxszj5841 [place] [address]Dr. Tishemily Kerwin NEUT # 5.6 103/ul Normal 1.4-6.5 [facility] Comment on above: Performed By: #### C BC ####[facility] Mcodaamcko2232 [place] [address]Dr. Devin Suresh Neutrophils/100 WBC (Bld) 55.9 % Normal 43.0-75.0 [facility] Comment on above: Performed By: #### C BC ####[facility] Uydszosobv4645 [place], [place] [address]Bo. Devin Suresh Platelet mean volume (Bld) [Entitic vol] 9.1 fL Critically low 9.5-13.5 [facility] Comment on above: Performed By: #### C BC ####[facility] Pnnsyxonbe0150 [place], [place] [address]Lc. Devin Suresh PLT 334 103/ul Normal 150-450 [facility] Comment on above: Performed By: #### C BC ####[facility] Yvuucvtqsq5521 [place], [place] [address]Sb. Devin Suresh RBC 3.89 106/ul Critically low 4.20-5.40 [facility] Comment on above: Performed By: #### C BC ####[facility] Fshoanyqtd2370 [place] [id number]. Devin Suresh WBC 10.0 103/ul Normal 4.0-11.0 [facility] Comment on above: Performed By: #### C BC ####[facility] Vuqbmixxdg5698 [place] [phone]. Devin Suresh CT LSPINE WO CONon 2 CT LSPINE WO CON Normal [facility] Covid-19 PCR ([facility])on 02-22 SARS-CoV-2 (COVID-19) RNA EBONIE+probe Ql (Unsp spec) Not detected Normal NOT DETECTED [facility] Comment on above: Result Comment: When [...] for this test is supported by the [place] of [employer] and Human Service's declaration that [...] be used). Performed By: #### C VDTBH ####[facility] Tkagdahubn[address] [place], [place] [address]Ad. Devin Suresh LIPID PROFILEon 03-04-2022 CHOL-HDL RATIO NORM SEE BELOW Normal [facility] Comment on above: Result Comment: 3.3 - 4.4 LOW RISK 4.4 - 7.1 AVERAGE RISK 7.1 - 11.0 MODERATE RISK >11.0 HIGH RISK Performed By: #### L IPID, TSH ####[facility] Pncyeddwxl7829 [place], [place] [address]Hm. Devin Suresh Cholesterol [Mass/Vol] 231 mg/dL Critically high <=[address] [facility] Comment on above: Performed By: #### L IPID, TSH ####[facility] Hsleaqnhej5341 [place], [place] [address]Ud. Devin Suresh Cholesterol in HDL [Mass/Vol] 52 mg/dL Normal 40-[address] [facility] Comment on above: Performed By: #### L IPID, TSH ####[facility] Ovxazcwdce0384 [place], [place] [address]Ol. Devin Suresh Cholesterol in LDL [Mass/Vol] 156.6 mg/dL Normal [facility] Comment on above: Performed By: #### L IPID, TSH ####[facility] Djtzekxrja3518 [place], [place] [address]Il. Devin Suresh Cholesterol.total/Cho lesterol in HDL [Mass ratio] 4.4 {ratio} Normal [facility] Comment on above: Performed By: #### L IPID, TSH ####[facility] Nikbifgbht8994 [place], [place] [address]Bv. Devin Suresh HDL NORMAL > or = 60 mg/dl - LO W CARDIOVASCULAR RISK <40 mg/dl - HIGH CARDIOVASCULAR RISK Normal [facility] Comment on above: Performed By: #### L IPID, TSH ####[facility] Ycoottbiwf8348 [place], [place] [address]Fx. Devin Suresh LDL CALC NORMAL SEE BELOW Normal [facility] Comment on above: Result Comment: <100 mg/dl OPTIMAL 100 - 129 mg/dl NEAR OR ABOVE OPTIMAL 130 - 159 mg/dl BORDERLINE HIGH 160 - 189 mg/dl HIGH >190 mg/dl VERY HIGH Performed By: #### L IPID, TSH ####[facility] Njjkydkhdc9882 [place] [id number]. Devin Suresh Triglyceride [Mass/Vol] 112 mg/dL Normal <=[address] [facility] Comment on above: Performed By: #### L IPID, TSH ####[facility] Apegtoaqwu2867 [place] [phone]. Devin Suresh VLDL CALC 22.4 mg/dL Normal [facility] Comment on above: Performed By: #### L IPID, TSH ####[facility] Wluheqtxjr3209 [place] [address]Dr. Devin Suresh POINT OF CARE GLUCOSEon 02-22 Glucose [Mass/Vol] 295 mg/dL Critically high -[address] [place] [address] Comment on above: Performed By: #### P OCGLUC ####[facility] Wqmktpwnpl4007 [place] [address]Dr. Devin Suresh Glucose [Mass/Vol] 157 mg/dL Critically high -[address] [place] [address] Comment on above: Performed By: #### P OCGLUC ####[facility] Etnrygbpqk7308 [place] [address]Dr. Devin Suresh Glucose [Mass/Vol] 172 mg/dL Critically high -[address] [place] [address] Comment on above: Performed By: #### P OCGLUC ####[facility] Stgmzcvbic8795 [place] [address]Dr. Tishlan Suresh Glucose [Mass/Vol] 178 mg/dL Critically high -[address] [place] [address] Comment on above: Performed By: #### P OCGLUC ####[facility] Kdhfoewnra4970 [place] [address]Dr. Tishlan Suresh Glucose [Mass/Vol] 241 mg/dL Critically high -106 [facility] Comment on above: Performed By: #### P OCGLUC ####[facility] Igsduhfclx8070 [place] [address]Dr. Devin Suresh PROF 14(COMP METB)on 022 Albumin [Mass/Vol] 3.1 g/dL Critically low 3.4-5.0 [facility] Comment on above: Performed By: #### C MP ####[facility] Qhyirtiygh7521 [place] [address]Dr. Devin Suresh Albumin/Globulin [Mass ratio] 0.9 {ratio} Normal [facility] Comment on above: Performed By: #### C MP ####[facility] Qdwrnaatce[address] [place], [place] [address]Dr. Devin Suresh ALP [Catalytic activity/Vol] 114 U/L Normal 46-[address] [facility] Comment on above: Performed By: #### C MP ####[facility] Wyliijpsjm[address] [place], [place] [address]Dr. Devin Suresh ALT [Catalytic activity/Vol] 9 U/L Critically low 14-[address] [facility] Comment on above: Performed By: #### C MP ####[facility] Wazfvbpqon23[address] [place], [place] [address]Dr. Devin Suresh Anion gap [Moles/Vol] 12.3 mmol/L Normal [facility] Comment on above: Performed By: #### C MP ####[facility] Bplheoajvm[address] [place], [place] [address]Dr. Devin Suresh AST [Catalytic activity/Vol] 7 U/L Critically low 15-[address] [facility] Comment on above: Performed By: #### C MP ####[facility] Zvdfrcypid5[address] [place], [place] [address]Dr. Devin Suresh Bilirubin [Mass/Vol] 0.4 mg/dL Normal 0.2-1.[address] [facility] Comment on above: Performed By: #### C MP ####[facility] Vmtmzvnntj5[address] [place], [place] [address]Dr. Devin Suresh Calcium [Mass/Vol] 8.3 mg/dL Critically low 8.5-10.1 [facility] Comment on above: Performed By: #### C MP ####[facility] Bonprouphc7227 [place] [phone]. Devin Suresh Chloride [Moles/Vol] 103 mmol/L Normal 98-107 [facility] Comment on above: Performed By: #### C MP ####[facility] Etbvkuvozg4042 [place] [phone]. Devin Suresh CO2 [Moles/Vol] 27.2 mmol/L Normal 21.0-32.0 [facility] Comment on above: Performed By: #### C MP ####[facility] Strdmagupr1596 [place] [address]Dr. Devin Suresh Creatinine [Mass/Vol] 0.95 mg/dL Normal 0.55-1.02 [facility] Comment on above: Performed By: #### C MP ####[facility] Zclutkzkar8923 [place] [address]Dr. Devin Suresh EGFR-AF ARMENIAN >60 Normal >=60 [facility] Comment on above: Performed By: #### C MP ####[facility] Nwbzjnvonl4651 [place] [address]Dr. Devin Surseh EGFR-NON AF ARMENIAN >60 Normal >=60 [facility] Comment on above: Performed By: #### C MP ####[facility] Vykcgseleh6807 [place] [address]Dr. Devin Suresh Globulin (S) [Mass/Vol] 3.3 g/dL Normal [facility] Comment on above: Performed By: #### C MP ####[facility] Yjwofvjtkm9598 [place] [address]Dr. Devin Suresh Glucose [Mass/Vol] 186 mg/dL Critically high 74-106 [facility] Comment on above: Performed By: #### C MP ####[facility] Hskauoeqhf36[address] [place], [place] [address]Dr. Devin Suresh Potassium [Moles/Vol] 3.5 mmol/L Normal 3.5-5.1 [facility] Comment on above: Performed By: #### C MP ####[facility] Cgngyezcnx7[address] [place], [place] [address]Dr. Devin Suresh Protein [Mass/Vol] 6.4 g/dL Normal 6.4-8.2 [facility] Comment on above: Performed By: #### C MP ####[facility] Zbymjffdbt6460 [place] [address]Dr. Devin Suresh Sodium [Moles/Vol] 139 mmol/L Normal 136-145 [facility] Comment on above: Performed By: #### C MP ####[facility] Lxyrpythcc9944 [place] [address]Dr. Devin Suresh Urea nitrogen [Mass/Vol] 22.0 mg/dL Critically high 7.0-18.0 [facility] Comment on above: Performed By: #### C MP ####[facility] Vxtaqpvzff9[address] [place], [place] [address]Dr. Devin Suresh Urea nitrogen/Creatinine [Mass ratio] 23.2 mg/mg Normal [facility] Comment on above: Performed By: #### C MP ####[facility] Akzohakfid[address] [place], [place] [address]Dr. Devin Suresh TSHon 03-04-2022 TSH 4.081 uIU/mL Critically high 0.358-3.740 [facility] Comment on above: Performed By: #### L IPID, TSH ####[facility] Dekeszzsxg0063[address] [place], [place] [address]Dr. Devin Kerwin CARDIAC LAURA ADMITon 022 CK [Catalytic activity/Vol] 58 U/L Normal 26-192 [facility] Comment on above: Performed By: #### C MADM, BMP ####[facility] Upmsftqknb2559 [place] [address]Dr. Devin Kerwin CK.MB [Mass/Vol] 0.80 ng/mL Normal <=3.60 [facility] Comment on above: Performed By: #### C MADM, BMP ####[facility] Zpratqjidf3974 [place] [address]Dr. Devin Kerwin HSTROP 7.9 pg/mL Normal 4.0-51.3 [facility] Comment on above: Result Comment: CUT- OFF POINTS HAVE BEEN ESTABLISHED BASED ON THE FOURTH UNIVERSAL DEFINITIONS OF MYOCARDIALINFARCTION. THE UPPER REFERENCE LIMIT (URL) OF TROPONIN, DEFINED THE 99TH PERCENTILE OFcTnI DISTRIBUTION IN A REFERENCE POPULATION, HAS BEEN CONFIRMED THE DECISION THRESHOLDFOR DC DIAGNOSIS. Performed By: #### C CITLALLI, ALEXIA ####[facility] Qzyyzmezsy0058 [place] [address]Dr. Tishemily Kerwin MELANIE 48 ng/mL Normal 9-82 [facility] Comment on above: Performed By: #### C CITLALLI, BMP ####[facility] Qrqyzucldx77[address] [place], [place] [address]Dr. Devin Suresh CBC AUTO DIFFon 03-03-2022 BASO # 0.1 103/ul Normal 0.0-0.[address] [facility] Comment on above: Performed By: #### C BC ####[facility] Hrbuylvpnn[address] [place], [place] [address]Dr. Devin Suresh Basophils/100 WBC (Bld) 0.8 % Normal 0.2-2.[address] [facility] Comment on above: Performed By: #### C BC ####[facility] Mimfgwujlc65[address] [place], [place] [address]Dr. Devin Suresh EO # 0.1 103/ul Normal 0.0-0.[address] [facility] Comment on above: Performed By: #### C BC ####[facility] Gxkshvnybn6[address] [place], [place] [address]Dr. Dvein Suresh Eosinophils/100 WBC (Bld) 1.1 % Normal 0.9-7.0 [facility] Comment on above: Performed By: #### C BC ####[facility] Fwcobpazll10[address] [place], [place] [address]Dr. Devin Suresh Erythrocyte distribution width (RBC) [Ratio] 12.9 % Normal 11.0-15.0 [facility] Comment on above: Performed By: #### C BC ####[facility] Vzkgwqajdo[address] [place], [place] [address]Dr. Devin Suresh Hematocrit (Bld) [Volume fraction] 37.6 % Normal 36.0-48.0 [facility] Comment on above: Performed By: #### C BC ####[facility] Qluoonxgxa3327 [place] [id number]. Devin Suresh Hemoglobin (Bld) [Mass/Vol] 12.9 g/dL Normal 12.0-16.[address] [facility] Comment on above: Performed By: #### C BC ####[facility] Tvveqnulqp2458 [place] [phone]. Devin Suresh IG # 0.06 10e3/ul Critically high 0.00-0.03 [facility] Comment on above: Performed By: #### C BC ####[facility] Sonqrulkvp7190 [place] [address]Dr. Devin Suresh IG % 0.6 % Critically high 0.0-0.5 [facility] Comment on above: Performed By: #### C BC ####[facility] Zthfktsigf87[address] [place], [place] [address]Dr. Devin Suresh LYMPH # 2.4 103/ul Normal 1.2-3.8 [facility] Comment on above: Performed By: #### C BC ####[facility] Babeirbikg1015 [place] [address]Dr. Devin Suresh Lymphocytes/100 WBC (Bld) 22.2 % Normal 20.5-60.[address] [facility] Comment on above: Performed By: #### C BC ####[facility] Huisvigmcl4109 [place] [address]Dr. Devin Suresh MANUAL DIFF REQ NO Normal [facility] Comment on above: Performed By: #### C BC ####[facility] Tfdbkpfgit1808 [place] [phone]. Devin Suresh MCH (RBC) [Entitic mass] 30.7 pg Normal 26.7-34.0 [facility] Comment on above: Performed By: #### C BC ####[facility] Hersgldnzz6924 [place] [phone]. Devin Suresh MCHC (RBC) [Mass/Vol] 34.3 g/dL Normal 29.9-35.2 [facility] Comment on above: Performed By: #### C BC ####[facility] Nmbdtamrjf2964 [place] [phone]. Devin Suresh MCV (RBC) [Entitic vol] 89.5 fL Normal 81.0-99.0 [facility] Comment on above: Performed By: #### C BC ####[facility] Jplmzjskpu2904 [place] [phone]. Devin Suresh MONO # 0.6 103/ul Normal 0.3-0.8 [facility] Comment on above: Performed By: #### C BC ####[facility] Tlinzxnzvs6581 [place] [phone]. Devin Kerwin Monocytes/100 WBC (Bld) 5.3 % Normal 1.7-12.0 [facility] Comment on above: Performed By: #### C BC ####[facility] [address] [place], [place] [address]Dr. Devin Suresh NEUT # 7.4 103/ul Critically high 1.4-6.5 [facility] Comment on above: Performed By: #### C BC ####[facility] Eylhqwagwq5519 [place] [phone]. Tishemily Suresh Neutrophils/100 WBC (Bld) 70.0 % Normal 43.0-75.0 [facility] Comment on above: Performed By: #### C BC ####[facility] Dkxyhkblul5312 [place] [phone]. Tishemily Kerwin Platelet mean volume (Bld) [Entitic vol] 9.6 fL Normal 9.5-13.5 [facility] Comment on above: Performed By: #### C BC ####[facility] Stuwfecuaj[address] [place] [phone]. Tishemily Kerwin PLT 382 103/ul Normal 150-450 [facility] Comment on above: Performed By: #### C BC ####[facility] Hqirziimtc[address] [place] [id number]. Devin Suresh RBC 4.20 106/ul Normal 4.20-5.40 [facility] Comment on above: Performed By: #### C BC ####[facility] Bmlmhxhqrb22[address] [place] [id number]. Devin Kerwin WBC 10.6 103/ul Normal 4.0-11.[address] [facility] Comment on above: Performed By: #### C BC ####[facility] Rcxjfijymp7[address] [place] [phone]. Devin Kerwin CT STROKE HEAD WOon 03-03-20 CT STROKE HEAD WO Normal [facility] POINT OF CARE GLUCOSEon 02-22 Glucose [Mass/Vol] 453 mg/dL Critically high 74-106 [facility] Comment on above: Performed By: #### P OCGLUC ####[facility] Zhinaabgdw[address] [place] [address]Dr. Tishemily Suresh PROF CHEM 8 (BAS METB)on Anion gap [Moles/Vol] 11.1 mmol/L Normal [facility] Comment on above: Performed By: #### C CITLALLI, BMP ####[facility] Mpmofbdahv[address] [place] [address]Dr. Devin Suresh Calcium [Mass/Vol] 8.6 mg/dL Normal 8.5-10.1 [facility] Comment on above: Performed By: #### C CITLALLI, BMP ####[facility] Zymyaboxst[address] [place] [address]Dr. Devin Suresh Chloride [Moles/Vol] 98 mmol/L Normal 98-[address] [facility] Comment on above: Performed By: #### C CITLALLI, BMP ####[facility] Ejzxrvkatd[address] [place] [address]Dr. Devin Suresh CO2 [Moles/Vol] 29.0 mmol/L Normal 21.0-32.0 [facility] Comment on above: Performed By: #### C CITLALLI, BMP ####[facility] Gprdcivpqf7[address] [place] [address]Dr. Devin Suresh Creatinine [Mass/Vol] 1.16 mg/dL Critically high 0.55-1.[address] [facility] Comment on above: Performed By: #### C CITLALLI, BMP ####[facility] Rahmrujbso7[address] [place] [phone]. Devin Suresh EGFR-AF ARMENIAN >60 Normal >=60 [facility] Comment on above: Performed By: #### C CLEOPATRAM, BMP ####[facility] Nglicsgvzs1050 [place] [phone]. Devin Suresh EGFR-NON AF ARMENIAN 51 mL/min/1.73m2 Critically low >=[address] [facility] Comment on above: Performed By: #### C CITLALLI, BMP ####[facility] Ugeptonfts13[address] [place] [phone]. Devin Suresh Glucose [Mass/Vol] 428 mg/dL Critically high 74-106 [facility] Comment on above: Performed By: #### C CITLALLI, BMP ####[facility] Pzbdyzpnbt1858 [place] [phone]. Devin Suresh Potassium [Moles/Vol] 4.1 mmol/L Normal 3.5-5.[address] [facility] Comment on above: Performed By: #### C CITLALLI, BMP ####[facility] Cffuhssjvb380[address] [place] [phone]. Devin Suresh Sodium [Moles/Vol] 134 mmol/L Critically low 136-145 [facility] Comment on above: Performed By: #### C CITLALLI, BMP ####[facility] Volyflyjsh6217 [place] [phone]. Devin Suresh Urea nitrogen [Mass/Vol] 23.0 mg/dL Critically high 7.0-18.[address] [facility] Comment on above: Performed By: #### C CITLALLI, BMP ####[facility] Lozrvogohd[address] [place] [phone]. Devin Suresh Urea nitrogen/Creatinine [Mass ratio] 19.8 mg/mg Normal [facility] Comment on above: Performed By: #### C CITLALLI, BMP ####[facility] Rhmvphguvo6134 [place] [phone]. Devin Suresh XR CHEST 1 Von 03-03-2022 XR CHEST 1 V Normal [facility] CHEMISTRYOrdered By: SYSTEM SYSTEM on 02-27-2022 [facility] [place] HemeAutoSS Platelets (Bld) [#/Vol] 343.0 E9/L Normal 150.0 - 500.0 E9/L [facility] HemeAutoSS RBC (Bld) [#/Vol] 4.4 E12/L Normal 4.3 - 5.9 E12/L [facility] HemeAutoSS WBC corrected for nucl RBC Auto (Bld) [#/Vol] 9.5 E9/L Normal 4.0 - 11.0 E9/L [facility] HemeAutoSS CULTURE URINEon 02-20-2022 CULTURE URINE Normal [facility] Comment on above: Performed By: #### U RCX ####[facility] Nynmelgpwx[address] [place], [place] [address]Dr. Devin Suresh ACETONE SERUMon 02-18-2022 ACETONE Negative Normal NEGATIVE [facility] Comment on above: Performed By: #### A CETON ####[facility] Ffzjlzjwwg[address] [place], [place] [address]Dr. Devin Suresh CBC AUTO DIFFon 02-18-2022 BASO # 0.0 103/ul Normal 0.0-0.1 [facility] Comment on above: Performed By: #### C BC ####[facility] Dnrnvpnhac38[address] [place], [place] [address]Dr. Devin Suresh Basophils/100 WBC (Bld) 0.4 % Normal 0.2-2.0 [facility] Comment on above: Performed By: #### C BC ####[facility] Sxlbpugdxr40[address] [place], [place] [address]Dr. Devin Suresh EO # 0.1 103/ul Normal 0.0-0.7 [facility] Comment on above: Performed By: #### C BC ####[facility] Jmawrazlbd60[address] [place], [place] [address]Dr. Devin Suresh Eosinophils/100 WBC (Bld) 1.0 % Normal 0.9-7.0 [facility] Comment on above: Performed By: #### C BC ####[facility] Gvqgmgigwm8[address] [place], [place] [address]Dr. Devin Suresh Erythrocyte distribution width (RBC) [Ratio] 12.3 % Normal 11.0-15.[address] [facility] Comment on above: Performed By: #### C BC ####[facility] Yufmgsffii5233 [place] [address]DrMaris Winstonemily Kerwin Hematocrit (Bld) [Volume fraction] 34.4 % Critically low 36.0-48.[address] [facility] Comment on above: Performed By: #### C BC ####[facility] Sbfkwpcqtg26[address] [place], [place] [address]DrMaris Suresh Hemoglobin (Bld) [Mass/Vol] 11.7 g/dL Critically low 12.0-16.[address] [facility] Comment on above: Performed By: #### C BC ####[facility] Undjteuvkm8[address] [place], [place] [address]DrMaris Suresh IG # 0.09 10e3/ul Critically high 0.00-0.03 [facility] Comment on above: Performed By: #### C BC ####[facility] Tijzoyyaai[address] [place], [place] [address]DrMaris Suresh IG % 0.9 % Critically high 0.0-0.5 [facility] Comment on above: Performed By: #### C BC ####[facility] Kycxwwwojj[address] [place], [place] [address]DrMaris Suresh LYMPH # 2.0 103/ul Normal 1.2-3.8 [facility] Comment on above: Performed By: #### C BC ####[facility] Bntjofaegm99[address] [place], [place] [address]DrMaris Suresh Lymphocytes/100 WBC (Bld) 19.8 % Critically low 20.5-60.0 [facility] Comment on above: Performed By: #### C BC ####[facility] Udqafnzyqi9[address] [place], [place] [address]DrMaris Suresh MANUAL DIFF REQ NO Normal [facility] Comment on above: Performed By: #### C BC ####[facility] Lkpzlxzioi85[address] [place], [place] [address]DrMaris Suresh MCH (RBC) [Entitic mass] 30.2 pg Normal 26.7-34.0 [facility] Comment on above: Performed By: #### C BC ####[facility] Rsaypzxaqr3553 [place] [address]Dr. Devin Suresh MCHC (RBC) [Mass/Vol] 34.0 g/dL Normal 29.9-35.2 [facility] Comment on above: Performed By: #### C BC ####[facility] Bvapziiozs56[address] [place], [place] [address]Dr. Devin Suresh MCV (RBC) [Entitic vol] 88.9 fL Normal 81.0-99.0 [facility] Comment on above: Performed By: #### C BC ####[facility] Esqkbvwglh0113[address] [place], [place] [address]DrMaris Suresh MONO # 0.6 103/ul Normal 0.3-0.8 [facility] Comment on above: Performed By: #### C BC ####[facility] Pvdlwlzodr80[address] [place], [place] [address]Dr. Devin Suresh Monocytes/100 WBC (Bld) 6.4 % Normal 1.7-12.0 [facility] Comment on above: Performed By: #### C BC ####[facility] Pixlbctyql07[address] [place], [place] [address]Dr. Devin Suresh NEUT # 7.0 103/ul Critically high 1.4-6.5 [facility] Comment on above: Performed By: #### C BC ####[facility] Migcopllnd2[address] [place], [place] [address]DrMaris Suresh Neutrophils/100 WBC (Bld) 71.5 % Normal 43.0-75.0 [facility] Comment on above: Performed By: #### C BC ####[facility] Twlfxawpmn406[address] [place], [place] [address]DrMaris Suresh Platelet mean volume (Bld) [Entitic vol] 8.4 fL Critically low 9.5-13.5 [facility] Comment on above: Performed By: #### C BC ####[facility] Mdmjwxirjo[address] [place], [place] [address]Dr. Devin Suresh PLT 333 103/ul Normal 150-450 [facility] Comment on above: Performed By: #### C BC ####[facility] Ffjlnetjay59[address] [place] [address]Dr. Devin Suresh RBC 3.87 106/ul Critically low 4.20-5.40 [facility] Comment on above: Performed By: #### C BC ####[facility] Kutnowomue23[address] [place] [address]Dr. Devin Suresh WBC 9.8 103/ul Normal 4.0-11.0 [facility] Comment on above: Performed By: #### C BC ####[facility] Ymhqusxxsh47[address] [place] [address]Dr. Devin Suresh CT HEAD WO CONon 02-18-2022 CT HEAD WO CON Normal [facility] DEPAKENE/VALPROICon 02-19-20 22 DEPAKENE <3.0 Critically low 50.0-100.0 [facility] Comment on above: Performed By: #### C MP, VALP, HSTROPN ####[facility] Lxiovfkdzm9[address] [place] [address]Dr. Devin Suresh ER URINE PROFILEon 2 Bilirubin Ql (U) Negative Normal NEGATIVE [facility] Comment on above: Performed By: #### U MICRO, ERUR ####[facility] Drvhzvndpy7281 [place] [address]Dr. Devin Suresh Clarity (U) CLEAR Normal CLEAR [facility] Comment on above: Performed By: #### U MICRO, ERUR ####[facility] Lnovtoradw3114 [place] [address]Dr. Devin Suresh Color (U) LT. YELLOW Normal YELLOW [facility] Comment on above: Performed By: #### U MICRO, ERUR ####[facility] Uligxrrbdf1864 [place] [address]Dr. Devin Suresh ERUAHD A micrscopic examina tion will be performed if indicated. Normal [facility] Comment on above: Performed By: #### U MICRO, ERUR ####[facility] Pgohpmqmkx5[address] [place] [address]Dr. Devin Suresh Glucose Ql (U) >1000 Abnormal NEGATIVE [facility] Comment on above: Performed By: #### U MICRO, ERUR ####[facility] Nvvueozdnx3049 [place] [address]Dr. Devin Suresh Hemoglobin Ql (U) SMALL Abnormal NEGATIVE [facility] Comment on above: Performed By: #### U MICRO, ERUR ####[facility] Enijmeqfgk[address] [place], [place] [address]Dr. Devin Suresh Ketones Ql (U) 40 mg/dl Abnormal NEGATIVE [facility] Comment on above: Performed By: #### U MICRO, ERUR ####[facility] Kkzmjolmwd[address] [place], [place] [address]Dr. Devin Suresh LEUKOCYTES TRACE Abnormal NEGATIVE [facility] Comment on above: Performed By: #### U MICRO, ERUR ####[facility] Amidxtdbfd45[address] [place], [place] [address]Dr. Devin Suresh Nitrite Ql (U) Positive Abnormal NEGATIVE [facility] Comment on above: Performed By: #### U MICRO, ERUR ####[facility] Pfwgymfylz0[address] [place], [place] [address]Dr. Devin Suresh pH (U) 7.0 [pH] Normal 5-9 [facility] Comment on above: Performed By: #### U MICRO, ERUR ####[facility] Ixtdcqqpge6[address] [place], [place] [address]Dr. Devin Suresh Protein (U) [Mass/Vol] 100 mg/dL Abnormal NEGATIVE/ TRACE [facility] Comment on above: Performed By: #### U MICRO, ERUR ####[facility] Vwppwecwrc[address] [place], [place] [address]Dr. Deivn Suresh SPEC GRAVITY 1.020 Normal 1.005-<=1.0 25 [facility] Comment on above: Performed By: #### U MICRO, ERUR ####[facility] Yepcltxraf7[address] [place], [place] [address]Dr. Devin Suresh UR MICRO IND INDICATED Normal [facility] Comment on above: Performed By: #### U MICRO, ERUR ####[facility] Ipayhygetd4[address] [place] [address]Dr. Devin Suresh Urobilinogen Qn (U) 1.0 {Sheyla'U}/dL Normal 0.2 - 1. [address] [facility] Comment on above: Performed By: #### U MICRO, ERUR ####[facility] Jxxyksrwkw8409 [place] [address]Dr. Devin Suresh LACTATE/LACTIC ACIDon 2021 Lactate [Moles/Vol] 0.9 mmol/L Normal 0.4-1.[address] [facility] Comment on above: Performed By: #### L ACT ####[facility] Gfycmznqbi5[address] [place], [place] [address]Dr. Devin Suresh POINT OF CARE GLUCOSEon 01-24 Glucose [Mass/Vol] 346 mg/dL Critically high 74-106 [facility] Comment on above: Performed By: #### P OCGLUC ####[facility] Trjetqytlb0284 [place] [address]Dr. Devin Suresh Glucose [Mass/Vol] 272 mg/dL Critically high 74-106 [facility] Comment on above: Performed By: #### P OCGLUC ####[facility] Muuwomaxco9[address] [place] [address]Dr. Devin Suresh PROF 14(COMP METB)on 022 Albumin [Mass/Vol] 3.3 g/dL Critically low 3.4-5.0 [facility] Comment on above: Performed By: #### C MP, VALP, HSTROPN ####[facility] Qpwqgqbbsj2537 [place] [address]Dr. Devin Suresh Albumin/Globulin [Mass ratio] 0.9 {ratio} Normal [facility] Comment on above: Performed By: #### C MP, VALP, HSTROPN ####[facility] Zdscdkgeyu0327 [place] [address]Dr. Devin Suresh ALP [Catalytic activity/Vol] 130 U/L Critically high 46-[address] [facility] Comment on above: Performed By: #### C MP, VALP, HSTROPN ####[facility] Anvtqmrkwj0552 [place] [address]Dr. Devin Suresh ALT [Catalytic activity/Vol] 22 U/L Normal 14-[address] [facility] Comment on above: Performed By: #### C MP, VALP, HSTROPN ####[facility] Zzjbhhsqdq1396 [place] [address]Dr. Devin Suresh Anion gap [Moles/Vol] 10.9 mmol/L Normal [facility] Comment on above: Performed By: #### C MP, VALP, HSTROPN ####[facility] Ttqyzqfckx[address] [place], [place] [address]Dr. Devin Suresh AST [Catalytic activity/Vol] 11 U/L Critically low 15-[address] [facility] Comment on above: Performed By: #### C MP, VALP, HSTROPN ####[facility] Tfuuukvcry[address] [place], [place] [address]Dr. Devin Suresh Bilirubin [Mass/Vol] 0.9 mg/dL Normal 0.2-1.[address] [facility] Comment on above: Performed By: #### C MP, VALP, HSTROPN ####[facility] Fleiyjsjqn8[address] [place], [place] [address]Dr. Devin Suresh Calcium [Mass/Vol] 8.7 mg/dL Normal 8.5-10.1 [facility] Comment on above: Performed By: #### C MP, VALP, HSTROPN ####[facility] Wlimgxhnam8056 [place] [address]Dr. Devin Suresh Chloride [Moles/Vol] 100 mmol/L Normal 98-107 [facility] Comment on above: Performed By: #### C MP, VALP, HSTROPN ####[facility] Qekkmjpsbm44[address] [place], [place] [address]Dr. Devin Suresh CO2 [Moles/Vol] 29.4 mmol/L Normal 21.0-32.0 [facility] Comment on above: Performed By: #### C MP, VALP, HSTROPN ####[facility] Btratunvly8104 [place] [address]Dr. Devin Suresh Creatinine [Mass/Vol] 0.87 mg/dL Normal 0.55-1.[address] [facility] Comment on above: Performed By: #### C MP, VALP, HSTROPN ####[facility] Stcjadsjhb0274 [place] [address]Dr. Devin Suresh EGFR-AF ARMENIAN >60 Normal >=60 [facility] Comment on above: Performed By: #### C MP, VALP, HSTROPN ####[facility] Fjvtmttqkp9[address] [place], [place] [address]Dr. Devin Suresh EGFR-NON AF ARMENIAN >60 Normal >=[address] [facility] Comment on above: Performed By: #### C MP, VALP, HSTROPN ####[facility] Rwzcbhmxkn[address] [place], [place] [address]Dr. Devin Suresh Globulin (S) [Mass/Vol] 3.8 g/dL Normal [facility] Comment on above: Performed By: #### C MP, VALP, HSTROPN ####[facility] Dtifkwmsrv35[address] [place], [place] [address]Dr. Devin Suresh Glucose [Mass/Vol] 282 mg/dL Critically high 74-106 [facility] Comment on above: Performed By: #### C MP, VALP, HSTROPN ####[facility] Kmkwnoepdd[address] [place], [place] [address]Dr. Devin Suresh Potassium [Moles/Vol] 3.3 mmol/L Critically low 3.5-5.[address] [facility] Comment on above: Performed By: #### C MP, VALP, HSTROPN ####[facility] Eszzmkkucn64[address] [place], [place] [address]Dr. Devin Suresh Protein [Mass/Vol] 7.1 g/dL Normal 6.4-8.2 [facility] Comment on above: Performed By: #### C MP, VALP, HSTROPN ####[facility] Vtsxkrmnqh68[address] [place] [address]Dr. Devin Suresh Sodium [Moles/Vol] 137 mmol/L Normal 136-145 [facility] Comment on above: Performed By: #### C MP, VALP, HSTROPN ####[facility] Xskxbvsjbx7220 [place] [address]Dr. Devin Suresh Urea nitrogen [Mass/Vol] 14.0 mg/dL Normal 7.0-18.[address] [facility] Comment on above: Performed By: #### C MP, VALP, HSTROPN ####[facility] Pfvhvumuqs2562 [place] [address]Dr. Devin Kerwin Urea nitrogen/Creatinine [Mass ratio] 16.1 mg/mg Normal [facility] Comment on above: Performed By: #### C MP, VALP, HSTROPN ####[facility] Wmeyvzbwzi[address] [place], [place] [address]Dr. Devin Kerwin TROPONIN, HIGH SENSITIVITYon 02-18-2022 HSTROP 11.4 pg/mL Normal 4.0-51.[address] [facility] Comment on above: Result Comment: CUT- OFF POINTS HAVE BEEN ESTABLISHED BASED ON THE FOURTH UNIVERSAL DEFINITIONS OF MYOCARDIALINFARCTION. THE UPPER REFERENCE LIMIT (URL) OF TROPONIN, DEFINED THE 99TH PERCENTILE OFcTnI DISTRIBUTION IN A REFERENCE POPULATION, HAS BEEN CONFIRMED THE DECISION THRESHOLDFOR DC DIAGNOSIS. Performed By: #### C MP, VALP, HSTROPN ####[facility] [address]ciwkbqk[address] [place], [place] [address]Dr. Devin Kerwin URINE MICROSCOPIC ONLYon BACTERIA MODERATE Abnormal NONE SEEN [facility] Comment on above: Performed By: #### U MICRO, ERUR ####[facility] Ogzaibdnjn[address] [place], [place] [address]Dr. Devin Suresh Bacteria identified Cx Nom (U) INDICATED Normal [facility] Comment on above: Performed By: #### U MICRO, ERUR ####[facility] Hswsgeywvh[address] [place], [place] [address]Dr. Devin Suresh CAST NONE SEEN Normal NONE SEEN [facility] Comment on above: Performed By: #### U MICRO, ERUR ####[facility] Ybqebczdhl59[address] [place] [address]Dr. Devin Suresh Crystals LM Nom (Urine sed) SEEN Abnormal NONE SEEN [facility] Comment on above: Performed By: #### U MICRO, ERUR ####[facility] Nbqgdxezlk5262 [place] [address]Dr. Devin Suresh Epithelial cells LM Ql (Urine sed) FEW Abnormal NONE SEEN /RARE [facility] Comment on above: Performed By: #### U MICRO, ERUR ####[facility] [address]uztcyhfs[address] [place] [address]Dr. Devin Suresh MUCOUS NONE SEEN Normal NONE SEEN [facility] Comment on above: Performed By: #### U MICRO, ERUR ####[facility] Krx[address]jnqu22[address] [place] [address]Dr. Devin Suresh RBC 2-5 Abnormal 0-2 [facility] Comment on above: Performed By: #### U MICRO, ERUR ####[facility] Vburzivljp[address] [place] [address]Dr. Devin Suresh WBC (U) [#/Vol] /uL Abnormal NONE SEEN [facility] Comment on above: Performed By: #### U MICRO, ERUR ####[facility] Qikxcdmzsb39[address] [place] [address]Dr. Devin Suresh XR CHEST 1 Von 02-18-2022 XR CHEST 1 V Normal [facility] CT HEAD WO CONon 02-06-2022 CT HEAD WO CON Normal [facility] CHEMISTRYOrdered By: Lab ROP User on 01-24-2022 Glucose [Mass/Vol] 66 mg/dL Normal 55 - 99 mg/dL [facility] POC Subsection Comment on above: Result Comment: Peter yeh RN/ POC Device SN [id number] Invalid Interpretation Code [facility] POC Subsection POC User ID [id number] Invalid Interpretation Code [facility] POC Subsection POC Username LAURA BRYANT Invalid Interpretation Code [facility] [place] [...] hCG Ql Negative (01/24/22 11:10 AM) Normal [facility] Man Sero URINALYSISOrdered By: Marvin Natarajan on [...] PM) Normal Negative [facility] UA Auto SS [place].plasma/Lithiu m.RBC (Bld) [Mass ratio] 0-3 /HPF Normal [...] Desc Clean Catch (01/24/22 12:40 PM) Normal [facility] UA Auto SS Urobilinogen Qn (U) 0.4548514 {Sheyla'U}/dL Normal 0.0 - 1.0 EU/dL [facility] [...] m2 FT Chem S Globulin (S) [Mass/Vol] 2.9 g/dL Normal 1.4 - 4.0 gm/dL [facility] Remisol Glucose [Mass/Vol] 137 mg/dL Normal 55 - 199 mg/dL [facility] Remisol Magnesium [Mass/Vol] 1.2 mg/dL Low 1.3 - 2 .4 mg/dL [facility] Remisol Potassium [Moles/Vol] 3.5 mmol/L Normal 3.5 - 5.3 mmol/L [facility] Remisol Protein [Mass/Vol] 6.2 g/dL Normal 6.0 [...] [place] Subsection POC Device SN [id number] Invalid Interpretation Code [facility] [place] POC Subsection POC User ID [id number] Invalid Interpretation Code [facility] [place] [...] [place] Auto Coag PT Coag (PPP) [Time] 10.5 s Normal 9.4 - 1 2.5 second(s) [facility] [place] Auto Coag HEMATOLOGYOrdered By: SYSTEM SYSTEM on 01-09-2022 Basophils/100 WBC (Bld) 0.5 % Normal 0.0 - 2.0 % [facility] HemeAutoSS Basophils/Leukocytes Auto (Bld) [Pure # fraction] 0.0 E9/L Normal 0.0 - 0.2 E9/L [facility] HemeAutoSS Eosinophils/100 WBC (Bld) 1.9 % Normal 0.0 - 8.0 % [facility] HemeAutoSS Eosinophils/Leukocyte s Auto (Bld) [Pure # [...] PM) Normal Negative [facility] UA Auto SS [place].plasma/Lithiu m.RBC (Bld) [Mass ratio] 0-3 /HPF Normal [...] Desc Clean Catch (01/09/22 1:58 PM) Normal [facility] UA Auto SS Urobilinogen Qn (U) 0.8996049 {Sheyla'U}/dL Normal 0.0 - 1.0 EU/dL [facility] UA Auto SS WBC Auto Ql (U) Negative (01/09/22 1:58 PM) Normal Negative [facility] UA Auto SS WBC LM.HPF (Urine sed) [#/Area] 0-5 /HPF Normal 0-5/HPF [facility] UA Auto SS CULTURE URINEon 01-04-2022 CULTURE URINE Normal [facility] Comment on above: Performed By: #### U RCX ####[facility] [address]qbysabkq[address] [place] [address]Dr. Devin Suresh CARDIAC LAURA 3-6on 2 CK [Catalytic activity/Vol] 38 U/L Normal 26-192 [facility] Comment on above: Performed By: #### C MREP ####[facility] Oxfggjvrbs[address] [place] [address]DrMaris Suresh CK.MB [Mass/Vol] 0.86 ng/mL Normal <=3.60 [facility] Comment on above: Performed By: #### C MREP ####[facility] K[address]eyigtbh24[address] [place] [address]DrMaris Suresh HSTROP 7.8 pg/mL Normal 4.0-51.3 [facility] Comment on above: Result Comment: CUT- OFF POINTS HAVE BEEN ESTABLISHED BASED ON THE FOURTH UNIVERSAL DEFINITIONS OF MYOCARDIALINFARCTION. THE UPPER REFERENCE LIMIT (URL) OF TROPONIN, DEFINED THE 99TH PERCENTILE OFcTnI DISTRIBUTION IN A REFERENCE POPULATION, HAS BEEN CONFIRMED THE DECISION THRESHOLDFOR DC DIAGNOSIS. Performed By: #### C MREP ####[facility] Xcvpqltcae[address] [place] [address]Dr. Devin Suresh CT ABD/PELVIS WO CONon 01-02 CT ABD/PELVIS WO CON Normal [facility] CT HEAD WO CONon 01-02-2022 CT HEAD WO CON Normal [facility] ER URINE PROFILEon 2 Bilirubin Ql (U) SMALL Abnormal NEGATIVE [facility] Comment on above: Performed By: #### U MICRO, ERUR ####[facility] Debiooivbc[address] [place] [address]DrMaris Suresh Clarity (U) CLEAR Normal CLEAR [facility] Comment on above: Performed By: #### U MICRO, ERUR ####[facility] [address]kybx[address]dd[address] [place], [place] [address]Dr. Devin Suresh Color (U) YELLOW Normal YELLOW [facility] Comment on above: Performed By: #### U MICRO, ERUR ####[facility] Effbwzyjgc[address] [place], [place] [address]Dr. Devin SINGHAHD A micrscopic examina tion will be performed if indicated. Normal [facility] Comment on above: Performed By: #### U MICRO, ERUR ####[facility] K[address]qirpcth[address] [place], [place] [address]Dr. Devin Suresh Glucose Ql (U) >1000 Abnormal NEGATIVE [facility] Comment on above: Performed By: #### U MICRO, ERUR ####[facility] [address]qsehxdjy[address] [place], [place] [address]Dr. Devin Suresh Hemoglobin Ql (U) SMALL Abnormal NEGATIVE [facility] Comment on above: Performed By: #### U MICRO, ERUR ####[facility] [address] [place], [place] [address]Dr. Devin Suresh Ketones Ql (U) 15 mg/dl Abnormal NEGATIVE [facility] Comment on above: Performed By: #### U MICRO, ERUR ####[facility] Hjmhoivkqu[address] [place], [place] [address]Dr. Devin Suresh LEUKOCYTES SMALL Abnormal NEGATIVE [facility] Comment on above: Performed By: #### U MICRO, ERUR ####[facility] Wmal[address]uy[address] [place], [place] [address]Dr. Devin Suresh Nitrite Ql (U) Positive Abnormal NEGATIVE [facility] Comment on above: Performed By: #### U MICRO, ERUR ####[facility] Sadglqaisz[address] [place], [place] [address]Dr. Devin Suresh pH (U) 5.0 [pH] Normal 5-9 [facility] Comment on above: Performed By: #### U MICRO, ERUR ####[facility] Jhharqaehj[address] [place], [place] [address]Dr. Devin Suresh Protein (U) [Mass/Vol] 100 mg/dL Abnormal NEGATIVE/ TRACE [facility] Comment on above: Performed By: #### U MICRO, ERUR ####[facility] Njxpowoctq[address] [place], [place] [address]Dr. Devin Suresh SPEC GRAVITY >=1.030 Abnormal 1.005-<=1.[address] [facility] Comment on above: Performed By: #### U MICRO, ERUR ####[facility] H[address]utriohek[address] [place], [place] [address]Dr. Devin Suresh UR MICRO IND INDICATED Normal [facility] Comment on above: Performed By: #### U MICRO, ERUR ####[facility] Mhlxwfpm[address] [place], [place] [address]Dr. Devin Suresh Urobilinogen Qn (U) 0.2 {Sheyla'U}/dL Normal 0.2 - 1. 0 [facility] Comment on above: Performed By: #### U MICRO, ERUR ####[facility] Lfglqdzpob[address] [place], [place] [address]Dr. Devin Suresh LACTATE/LACTIC ACIDon 2021 Lactate [Moles/Vol] 1.1 mmol/L Normal 0.4-1.[address] [facility] Comment on above: Performed By: #### L ACT ####[facility] Zuxzj[address] [place], [place] [address]Dr. Devin Suresh URINE MICROSCOPIC ONLYon BACTERIA LARGE Abnormal NONE SEEN [facility] Comment on above: Performed By: #### U MICRO, ERUR ####[facility] Xdetskbije[address] [place], [place] [address]Dr. Devin Suresh Bacteria identified Cx Nom (U) INDICATED Normal [facility] Comment on above: Performed By: #### U MICRO, ERUR ####[facility] Ymqpytjscq[address] [place], [place] [address]Dr. Devin Suresh CAST NONE SEEN Normal NONE SEEN [facility] Comment on above: Performed By: #### U MICRO, ERUR ####[facility] Szcjlmbnwv[address] [place], [place] [address]Dr. Devin Suresh Crystals LM Nom (Urine sed) NONE SEEN Normal NONE SEEN [facility] Comment on above: Performed By: #### U MICRO, ERUR ####[facility] [address] [place] [address]Dr. Devin Suresh Epithelial cells LM Ql (Urine sed) FEW Abnormal NONE SEEN /RARE [facility] Comment on above: Performed By: #### U MICRO, ERUR ####[facility] [address] [place] [address]Dr. Devin Suresh MUCOUS NONE SEEN Normal NONE SEEN [facility] Comment on above: Performed By: #### U MICRO, ERUR ####[facility] [address] [place] [address]Dr. Devin Suresh RBC 0-2 Normal 0-2 [facility] Comment on above: Performed By: #### U MICRO, ERUR ####[facility] [address] [place] [address]Dr. Devin Suresh WBC 5-10 Abnormal NONE SEEN [facility] Comment on above: Performed By: #### U MICRO, ERUR ####[facility] [address] [place] [address]Dr. Devin Suresh XR CHEST 1 Von 01-02-2022 XR CHEST 1 V Normal [facility] CARDIAC LAURA ADMITon 022 CK [Catalytic activity/Vol] 40 U/L Normal 26-192 [facility] Comment on above: Performed By: #### HOWARD Elizondo MP ####[facility] [address] [place] [address]Dr. Devin Suresh CK.MB [Mass/Vol] 0.95 ng/mL Normal <=3.60 [facility] Comment on above: Performed By: #### Mikhail PERAZA CMADM ####[facility] [address] [place] [address]Dr. Devin Suresh HSTROP 6.7 pg/mL Normal 4.0-51.3 [facility] Comment on above: Result Comment: CUT- OFF POINTS HAVE BEEN ESTABLISHED BASED ON THE FOURTH UNIVERSAL DEFINITIONS OF MYOCARDIALINFARCTION. THE UPPER REFERENCE LIMIT (URL) OF TROPONIN, DEFINED THE 99TH PERCENTILE OFcTnI DISTRIBUTION IN A REFERENCE POPULATION, HAS BEEN CONFIRMED THE DECISION THRESHOLDFOR DC DIAGNOSIS. Performed By: #### B HOWARD PERAZA ####[facility] [address] [place] [address]Dr. Devin Suresh MELANIE 53 ng/mL Normal 9-82 [facility] Comment on above: Performed By: #### B HOWARD PERAZA ####[facility] Nmzed[address] [place], [place] [address]Dr. Tishemily Suresh CBC AUTO DIFFon 01-01-2022 BASO # 0.1 103/ul Normal 0.0-0.1 [facility] Comment on above: Performed By: #### C BC ####[facility] Aavuy[address] [place], [place] [address]Dr. Devin Suresh Basophils/100 WBC (Bld) 0.5 % Normal 0.2-2.0 [facility] Comment on above: Performed By: #### C BC ####[facility] Ash[address] [place], [place] [address]Dr. eDvin Suresh EO # 0.1 103/ul Normal 0.0-0.7 [facility] Comment on above: Performed By: #### C BC ####[facility] T[address] [place], [place] [address]Dr. Devin Suresh Eosinophils/100 WBC (Bld) 0.7 % Critically low 0.9-7.0 [facility] Comment on above: Performed By: #### C BC ####[facility] Uzt[address]xorps[address] [place], [place] [address]Dr. Devin Suresh Erythrocyte distribution width (RBC) [Ratio] 12.5 % Normal 11.0-15.0 [facility] Comment on above: Performed By: #### C BC ####[facility] Qxkntvrc[address] [place], [place] [address]Dr. Devin Suresh Hematocrit (Bld) [Volume fraction] 43.0 % Normal 36.0-48.0 [facility] Comment on above: Performed By: #### C BC ####[facility] [address] [place] [address]Dr. Devin Suresh Hemoglobin (Bld) [Mass/Vol] 15.2 g/dL Normal 12.0-16.0 [facility] Comment on above: Performed By: #### C BC ####[facility] [address]ux[address] [place] [address]Dr. Devin Suresh IG # 0.05 10e3/ul Critically high 0.00-0.03 [facility] Comment on above: Performed By: #### C BC ####[facility] [address]vf[address] [place] [address]Dr. Devin Suresh IG % 0.4 % Normal 0.0-0.5 [facility] Comment on above: Performed By: #### C BC ####[facility] [address]qtk[address] [place] [address]Dr. Devin Suresh LYMPH # 2.0 103/ul Normal 1.2-3.8 [facility] Comment on above: Performed By: #### C BC ####[facility] Hj[address]ubiy[address] [place] [address]Dr. Devin Suresh Lymphocytes/100 WBC (Bld) 15.1 % Critically low 20.5-60.0 [facility] Comment on above: Performed By: #### C BC ####[facility] Q[address]pyt[address] [place] [address]Dr. Devin Suresh MANUAL DIFF REQ NO Normal [facility] Comment on above: Performed By: #### C BC ####[facility] [address]mt[address] [place] [address]Dr. Devin Suresh MCH (RBC) [Entitic mass] 30.2 pg Normal 26.7-34.0 [facility] Comment on above: Performed By: #### C BC ####[facility] [address]jtxzz[address] [place] [address]Dr. Devin Suresh MCHC (RBC) [Mass/Vol] 35.3 g/dL Critically high 29.9-35.2 [facility] Comment on above: Performed By: #### C BC ####[facility] [address] [place], [place] [address]Dr. Devin Suresh MCV (RBC) [Entitic vol] 85.3 fL Normal 81.0-99.0 [facility] Comment on above: Performed By: #### C BC ####[facility] [address] [place] [id number]. Devin Suresh MONO # 0.7 103/ul Normal 0.3-0.8 [facility] Comment on above: Performed By: #### C BC ####[facility] Z[address]wetsvlqk38[address] [place] [address]Dr. Devin Kerwin Monocytes/100 WBC (Bld) 5.6 % Normal 1.7-12.0 [facility] Comment on above: Performed By: #### C BC ####[facility] Ynsnzponbg[address] [place] [address]Dr. Devin Suresh NEUT # 10.2 103/ul Critically high 1.4-6.5 [facility] Comment on above: Performed By: #### C BC ####[facility] R[address]xt[address] [place], [place] [address]Dr. Devin Kerwin Neutrophils/100 WBC (Bld) 77.7 % Critically high 43.0-75.0 [facility] Comment on above: Performed By: #### C BC ####[facility] Z[address] [place], [place] [address]Dr. Devin Kerwin Platelet mean volume (Bld) [Entitic vol] 9.1 fL Critically low 9.5-13.5 [facility] Comment on above: Performed By: #### C BC ####[facility] [address]gkr[address] [place], [place] [address]Dr. Devin Kerwin PLT 420 103/ul Normal 150-450 [facility] Comment on above: Performed By: #### C BC ####[facility] [address]sek[address]xf[address] [place], [place] [address]Dr. Tishemily Kerwin RBC 5.04 106/ul Normal 4.20-5.40 [facility] Comment on above: Performed By: #### C BC ####[facility] [address]mlub[address] [place], [place] [address]Dr. Devin Suresh WBC 13.1 103/ul Critically high 4.0-11.0 [facility] Comment on above: Performed By: #### C BC ####[facility] D[address]mbzt3820 [place], [place] [address]Yd. Devin Suresh [facility]on [facility]-23 SARS-CoV-2 (COVID-19) RNA EBONIE+probe Ql (Unsp spec) Not detected Normal NOT DETECTED [facility] Comment on above: Result Comment: When [...] for this test is supported by the [employer] of Health and Human Service's declaration that [...] be used). Performed By: #### C VDTBH ####[facility] [address]kg[address]udos[address] [place], [place] [address]Px. Devin Suresh D-DIMERon 01-01-2022 D-DIMER 0.36 mg/L FEU Normal <=0.59 [facility] Comment on above: Performed By: #### D DIM ####[facility] [address]zssx9006 [place], [place] [address]Kc. Devin Suresh D-DIMER COMMENTS SEE BELOW Normal [facility] Comment on above: Result Comment: Incr [...] generalized hospitalization. Performed By: #### D DIM ####[facility] [address]rkiblkq[address] [place] [address]Dr. Devin Suresh LACTATE/LACTIC ACIDon 2021 Lactate [Moles/Vol] 1.8 mmol/L Normal 0.4-1.[address] [facility] Comment on above: Performed By: #### L ACT ####[facility] Qslypbjhwz[address] [place], [place] [address]Dr. Devin Suresh PROF CHEM 8 (BAS METB)on Anion gap [Moles/Vol] 16.5 mmol/L Normal [facility] Comment on above: Performed By: #### HOWARD Elizondo MP ####[facility] Uluwmbabav[address] [place], [place] [address]Dr. Devin Suresh Calcium [Mass/Vol] 9.9 mg/dL Normal 8.5-10.1 [facility] Comment on above: Performed By: #### HOWARD Elizondo MP ####[facility] [address]scksjoxhi[address] [place], [place] [address]Dr. Devin Suresh Chloride [Moles/Vol] 98 mmol/L Normal 98-[address] [facility] Comment on above: Performed By: #### HOWARD Elizondo MP ####[facility] Ycsx[address]bzyv[address] [place], [place] [address]Dr. Devin Suresh CO2 [Moles/Vol] 25.6 mmol/L Normal 21.0-32.0 [facility] Comment on above: Performed By: #### HOWARD Elizondo MP ####[facility] Yxwmcugqeg[address] [place], [place] [address]Dr. Devin Suresh Creatinine [Mass/Vol] 1.18 mg/dL Critically high 0.55-1.[address] [facility] Comment on above: Performed By: #### HOWARD Elizondo MP ####[facility] Mjuvkbtwdo[address] [place], [place] [address]Dr. Devin Suresh EGFR-AF ARMENIAN 60 mL/min/1.73m2 Normal >=60 [facility] Comment on above: Performed By: #### HOWARD Elizondo MP ####[facility] Hrjbffbgwz[address] [place] [id number]. Devin Suresh EGFR-NON AF ARMENIAN 50 mL/min/1.73m2 Critically low >=[address] [facility] Comment on above: Performed By: #### HOWARD Elizondo MP ####[facility] V[address]fnrsyeu35[address] [place] [id number]. Devin Suresh Glucose [Mass/Vol] 166 mg/dL Critically high 74-106 [facility] Comment on above: Performed By: #### HOWARD Elizondo MP ####[facility] O[address]mevj[address] [place] [address]Dr. Devin Suresh Potassium [Moles/Vol] 3.1 mmol/L Critically low 3.5-5.[address] [facility] Comment on above: Performed By: #### HOWARD Elizondo MP ####[facility] Fje[address]qqkvq[address] [place], [place] [address]Dr. Devin Suresh Sodium [Moles/Vol] 137 mmol/L Normal 136-145 [facility] Comment on above: Performed By: #### HOWARD Elizondo MP ####[facility] Eirc[address]keynt[address] [place], [place] [address]Dr. Devin Suresh Urea nitrogen [Mass/Vol] 12.0 mg/dL Normal 7.0-18.[address] [facility] Comment on above: Performed By: #### HOWARD Elizondo MP ####[facility] Aw[address]vdsoyju[address] [place], [place] [address]Dr. Devin Suresh Urea nitrogen/Creatinine [Mass ratio] 10.2 mg/mg Normal [facility] Comment on above: Performed By: #### HOWARD Elizondo MP ####[facility] V[address]fsqjb[address] [place], [place] [address]Dr. Devin Suresh CHEMISTRYOrdered By: SYSTEM SYSTEM on [...] 12.6 % Normal 10.9 - 14.2 % FT [facility] Hematocrit (Bld) [Volume fraction] 39.5 % Normal 34.0 - 46.0 % [facility] Hemoglobin (Bld) [Mass/Vol] 13.7 g/dL Normal 12.0 - 16.0 gm/dL FT [facility] MCH (RBC) [Entitic mass] 30.5 pg Normal 27.0 - 34.0 pg FT [facility] MCHC (RBC) [Mass/Vol] 34.7 g/dL Normal 31.4 - 36.0 gm/dL FT [facility] MCV (RBC) [Entitic vol] 87.7 fL Normal 80.0 - 100.0 fL FT [facility] Platelet mean volume (Bld) [Entitic vol] 7.3 fL Normal 6.4 - 10.8 fL FT [facility] Platelets (Bld) [#/Vol] 306.0 E9/L Normal 150.0 - 500.0 E9/L [facility] RBC (Bld) [#/Vol] 4.5 E12/L Normal 4.3 - 5.9 E12/L [facility] WBC corrected for nucl RBC Auto (Bld) [#/Vol] 7.7 E9/L Normal 4.0 - 11.0 E9/L [facility] Microscopic Urinalysison Bacteria, UA FEW Abnormal Negative /HPF [facility] Epithelial Cells, UA 3-5 /HPF [facility] RBC, UA 0-2 [facility] WBC, UA 3-5 [facility] No Panel Informationon 12-08 Interpretation and review of laboratory results Abnormal [facility] UR Drug Screen Rapidon 12-08 Drug Screen Comment see below Normal [facility] Comment on above: Result Comment: This method is a screening test to detect only these drug classes as part of a medical workup. Confirmatory testing by another method should be ordered if clinically indicated. Performed By: #### U DSNC #### [facility] [address] [facility] [address] UR Amphetamines Rapid Screen Negative Normal Negative < [facility] Comment on above: Result Comment: Effe ctive: 12/07/17 Methodology and/or Reference Range-Cutoff has changed. Performed By: #### U DSNC #### [facility] [address] [facility] [address] UR Barbiturates Rapid Screen Negative Normal Negative < [facility] Comment on above: Result Comment: Effe ctive: 12/07/17 Methodology and/or Reference Range-Cutoff has changed. Performed By: #### U DSNC #### [facility] [address] [place] [address] UR Benzo Rapid Screen Negative Normal Negative < [facility] Comment on above: Result Comment: Effe ctive: 12/07/17 Methodology and/or Reference Range-Cutoff has changed. Performed By: #### U DSNC #### [facility] [address] [place] [address] UR Cannabinoids Rapid Screen Negative Normal Negative < [facility] Comment on above: Performed By: #### U DSNC #### [facility] [address] [place] [address] UR Cocaine Rapid Screen Negative Normal Negative < [facility] Comment on above: Result Comment: Effe ctive: 12/07/17 Methodology and/or Reference Range-Cutoff has changed. Performed By: #### U DSNC #### [facility] [address] [place] [address] UR Opiates Rapid Screen Negative Normal Negative < [facility] Comment on above: Result Comment: Effe ctive: 12/07/17 Methodology and/or Reference Range-Cutoff has changed. Performed By: #### U DSNC #### [facility] [address] [place] [address] UR PCP Rapid Screen Negative Normal Negative < [facility] Comment on above: Performed By: #### U DSNC #### [facility] [address] [place] [address] UR Tricyclics Rapid Screen - Rapid Positive Abnormal Negative < [facility] Comment on above: Result Comment: Effe ctive: 12/07/17 Methodology and/or Reference Range-Cutoff has changed. Performed By: #### U DSNC #### [facility] [address] [place] [address] Urinalysis with Reflex to Cu ltureon 12-08-2021 Bilirubin Urine Negative Negative [employer] Blood, Urine Negative Negative [employer] Clarity, UA Clear Clear [employer] Color, UA Yellow Straw/Yello w [facility] [employer] Glucose, Ur 250 mg/dL Abnormal Negative [facility] Ketones Ql (U) Negative Negative mg/dL [facility] Leukocyte esterase Test strip Ql (U) TRACE Abnormal Negative [facility] Nitrite, Urine Negative Negative [facility] pH, UA 5.0 5 - 9 [facility] Protein, UA Negative Negative mg/dL [facility] Specific [place], UA 1.015 1.005 - 1.03 [facility] Urine Reflex to Culture Not Indicated [facility] Urobilinogen, Urine 0.2 NINF [facility] Urinalysis, reflex to cultur turner 12-08-2021 Urine Reflexed to Culture Not Indicated Normal [facility] Comment on above: Performed By: #### U AR #### [facility] [address] [address] Bilirubin Ql (U) Negative Normal Negative [facility] Comment on above: Performed By: #### U AR #### [facility] [address] [address] Clarity (U) Clear Normal Clear [facility] Comment on above: Performed By: #### U AR #### [facility] [address] [address] Color (U) Yellow Normal Straw/Hernando [facility] Comment on above: Performed By: #### U AR #### [facility] [address] [address] Glucose Ql (U) 250 mg/dL Abnormal Negative [facility] Comment on above: Performed By: #### U AR #### [facility] [address] [address] Hemoglobin Ql (U) Negative Normal Negative [facility] Comment on above: Performed By: #### U AR #### [facility] [address] [address] Ketones Ql (U) Negative Normal Negative [facility] Comment on above: Performed By: #### U AR #### [facility] [address] [place] [address] Leukocyte esterase Test strip Ql (U) TRACE Abnormal Negative [facility] Comment on above: Performed By: #### U AR #### [facility] [address] [place] [address] Nitrite Ql (U) Negative Normal Negative [facility] Comment on above: Performed By: #### U AR #### [facility] [address] [place] [address] pH (U) 5.0 [pH] Normal 5.0-9.0 [facility] Comment on above: Performed By: #### U AR #### [facility] [address] [place] [address] Protein Ql (U) Negative Normal Negative [facility] Comment on above: Performed By: #### U AR #### [facility] [address] [place] [address] Specific gravity (U) [Rel density] 1.015 Normal 1.005-1.03 [facility] Comment on above: Performed By: #### U AR #### [facility] [address] [place] [address] Urobilinogen Qn (U) 0.2 {Sheyla'U}/dL Normal < 2.0 [facility] Comment on above: Performed By: #### U AR #### [facility] [address] [place] [address] Urine Drug Screen, Comprehen siveon 12-08-2021 Amphetamine Screen, Urine Negative Negative <500 ng/mL [facility] [employer] [facility] [employer] Comment on above: Effective: 12/07/17 Methodology and/or Reference Range-Cutoff has changed. Barbiturate Screen, Ur Negative Negative <200 ng/mL [facility] [employer] [email or web address] Comment on above: Effective: 12/07/17 Methodology and/or Reference Range-Cutoff has changed. Benzodiazepine Screen, Urine Negative Negative <150 ng/mL [facility] [employer] Comment on above: Effective: 12/07/17 Methodology and/or Reference Range-Cutoff has changed. Cannabinoid Scrn, Ur Negative Negativ e <50 ng/mL [facility] Cocaine Metabolite Screen, Urine Negative Negative <150 ng/mL [facility] Comment on above: Effective: 12/07/17 Methodology and/or Reference Range-Cutoff has changed. Drug Screen Comment: see below [facility] Comment on above: This method is a scr eening test to detect only these drug classes as part of a medical workup. Confirmatory testing by another method should be ordered if clinically indicated. Interpretation and review of laboratory results Abnormal [facility] Opiate Scrn, Ur Negative Negative <100 ng/mL [facility] Comment on above: Effective: 12/07/17 Methodology and/or Reference Range-Cutoff has changed. PCP Screen, Urine Negative Negative <25 ng/mL [facility] Tricyclic Positive Abnormal Negative <300 ng/mL [facility] Comment on above: Effective: 12/07/17 Methodology and/or Reference Range-Cutoff has changed. [facility] Urine Microscopicon 12-09-19 22 Epithelial cells LM Ql (Urine sed) 3-5 Normal [facility] Comment on above: Performed By: #### U DOMENIC #### [facility] [address] [place] [address] Urine Bacteria FEW Abnormal Negative [facility] Comment on above: Performed By: #### U DOMENIC #### [facility] [address] [place] [address] Urine RBC 0-2 Normal 0-2 [facility] Comment on above: Performed By: #### U DOMENIC #### [facility] [address] [address] Urine WBC 3-5 Normal 0-5 [facility] Comment on above: Performed By: #### U DOMENIC #### [facility] [address] [address] HEP B SURFACE ANTIGEN SCREEN on 12-05-2021 HBsAg Screen Negative Normal Negative [facility] Comment on above: Performed By: #### H BSANS ####[facility] [address] [place] [address]DrMaris Suresh HEPATITIS C ANTIBODYon 12-05 Hep C Virus Ab 0.1 s/co ratio Normal 0.0-0.9 [facility] Comment on above: Result Comment: Nega [...] Hepatitis C Virus (HCV) RNA, Diagnosis, EBONIE (463649) and Hepatitis C Virus (HCV) Antibody with reflex to Quantitative Real-time PCR ([id number]). Performed By: #### H CV ####[facility] [address] [place] [id number] Devin Suresh HIV 1 AND 2 WITH REFLEXon HIV Screen 4th Generation wRfx Non-Reactive Normal Non Reactive [facility] Comment on above: Result Comment: HIV NegativeHIV-1/HIV-2 antibodies and HIV-1 p24 antigen were NOT detected.There is no laboratory evidence of HIV infection. Performed By: #### H IV12 ####[facility] [address] [place] [id number]. Devin Suresh RPR QUANTon 12-05-2021 Rapid Plasma Reagin, Quant Non-Reactive Normal NonRea<1:[address] [facility] Comment on above: Result Comment: Plea se Note: This test does not meet current guidelines forscreening and diagnosis of syphilis. This test is intended forfollowing treatment response in patients being treated forsyphilis infection. To screen for syphilis infection, a reflexcascade that includes both RPR and a treponema-specific assayshould be utilized, such as Treponema pallidum (Syphilis)Screening Ranson ([id number]) or Rapid Plasma Reagin (RPR) TestWith Reflex to Quantitative RPR and Confirmatory Treponemapallidum Antibodies ([id number]). Performed By: #### R PRQ ####[facility] [address] [place] [id number] Devin Suresh CBC AUTO DIFFon 12-04-2021 BASO # 0.1 103/ul Normal 0.0-0.[address] [facility] Comment on above: Performed By: #### C BC ####[facility] [address] [place] [address]DrMaris Suresh Basophils/100 WBC (Bld) 0.9 % Normal 0.2-2.[address] [facility] Comment on above: Performed By: #### C BC ####[facility] [address] [place], [place] [address]DrMaris Suresh EO # 0.2 103/ul Normal 0.0-0.7 [facility] Comment on above: Performed By: #### C BC ####[facility] Ze[address] [place], [place] [address]Dr. Devin Suresh Eosinophils/100 WBC (Bld) 2.8 % Normal 0.9-7.[address] [facility] Comment on above: Performed By: #### C BC ####[facility] [address] [place], [place] [address]DrMaris Suresh Erythrocyte distribution width (RBC) [Ratio] 12.0 % Normal 11.0-15.[address] [facility] Comment on above: Performed By: #### C BC ####[facility] Tgskynwazo[address] [place], [place] [address]Dr. Devin Suresh Hematocrit (Bld) [Volume fraction] 34.6 % Critically low 36.0-48.[address] [facility] Comment on above: Performed By: #### C BC ####[facility] [address] [place], [place] [address]Dr. Devin Suresh Hemoglobin (Bld) [Mass/Vol] 11.7 g/dL Critically low 12.0-16.0 [facility] Comment on above: Performed By: #### C BC ####[facility] [address] [place], [place] [address]DrMaris Suresh IG # 0.04 10e3/ul Critically high 0.00-0.03 [facility] Comment on above: Performed By: #### C BC ####[facility] [address] [place], [place] [address]DrMaris Suresh IG % 0.6 % Critically high 0.0-0.5 [facility] Comment on above: Performed By: #### C BC ####[facility] [address] [place] [address]DrMaris Suresh LYMPH # 2.0 103/ul Normal 1.2-3.8 [facility] Comment on above: Performed By: #### C BC ####[facility] [address] [place] [address]DrMaris Suresh Lymphocytes/100 WBC (Bld) 31.2 % Normal 20.5-60.0 [facility] Comment on above: Performed By: #### C BC ####[facility] [address] [place], [place] [address]DrMaris Suresh MANUAL DIFF REQ NO Normal [facility] Comment on above: Performed By: #### C BC ####[facility] [address]wsps[address] [place] [address]DrMaris Suresh MCH (RBC) [Entitic mass] 30.8 pg Normal 26.7-34.0 [facility] Comment on above: Performed By: #### C BC ####[facility] [address] [place], [place] [address]DrMaris Suresh MCHC (RBC) [Mass/Vol] 33.8 g/dL Normal 29.9-35.2 [facility] Comment on above: Performed By: #### C BC ####[facility] Imuvitbapt[address] [place], [place] [address]DrMaris Suresh MCV (RBC) [Entitic vol] 91.1 fL Normal 81.0-99.0 [facility] Comment on above: Performed By: #### C BC ####[facility] [address]zk[address] [place], [place] [address]DrMaris Suresh MONO # 0.4 103/ul Normal 0.3-0.8 [facility] Comment on above: Performed By: #### C BC ####[facility] Lilrypmxdv[address] [place], [place] [address]DrMaris Suresh Monocytes/100 WBC (Bld) 6.6 % Normal 1.7-12.0 [facility] Comment on above: Performed By: #### C BC ####[facility] Uxed[address]yrd[address] [place], [place] [address]Dr. Devin Suresh NEUT # 3.7 103/ul Normal 1.4-6.5 [facility] Comment on above: Performed By: #### C BC ####[facility] Tyrnvyfdtv[address] [place], [place] [address]Dr. Devin Suresh Neutrophils/100 WBC (Bld) 57.9 % Normal 43.0-75.0 [facility] Comment on above: Performed By: #### C BC ####[facility] Vdqkbianxl[address] [place], [place] [address]Dr. Devin Suresh Platelet mean volume (Bld) [Entitic vol] 9.0 fL Critically low 9.5-13.5 [facility] Comment on above: Performed By: #### C BC ####[facility] Whxtutorgy[address] [place], [place] [address]Dr. Devin Suresh PLT 272 103/ul Normal 150-450 [facility] Comment on above: Performed By: #### C BC ####[facility] Tvlbmgpmzz[address] [place], [place] [address]Dr. Devin Suresh RBC 3.80 106/ul Critically low 4.20-5.40 [facility] Comment on above: Performed By: #### C BC ####[facility] [address]ef[address]nnpelv[address] [place], [place] [address]Dr. Devin Suresh WBC 6.4 103/ul Normal 4.0-11.0 [facility] Comment on above: Performed By: #### C BC ####[facility] Sls[address]zzsj[address] [place], [place] [address]Dr. Devin Suresh HIV 1/2 RAPID (EXPOSURE ONLY )on 12-04-2021 HIV AB Negative Normal [facility] Comment on above: Performed By: #### R PDHIV ####[facility] [address]ylef[address] [place], [place] [address]Dr. Devin Suresh HIV AG Negative Normal [facility] Comment on above: Performed By: #### R PDHIV ####[facility] [address] [place] [address]Dr. Devin Suresh INTERNAL CONTROLS Within Normal Limits Normal Wi thin Normal Limits [facility] Comment on above: Performed By: #### R PDHIV ####[facility] [address] [place] [address]Dr. Devin Suresh RAPID HIV INFO SEE BELOW Normal [facility] Comment on above: Result Comment: This test is used for the initial screening of the exposure source. Confirmation of all results will be obtained through reference lab testing. Performed By: #### R PDHIV ####[facility] [address]wg[address] [place], [place] [address]Dr. Devin Suresh PROF 14(COMP METB)on 022 Albumin [Mass/Vol] 2.7 g/dL Critically low 3.4-5.0 [facility] Comment on above: Performed By: #### C MP ####[facility] [address]xctkqvers[address] [place], [place] [address]Dr. Devin Suresh Albumin/Globulin [Mass ratio] 0.9 {ratio} Normal [facility] Comment on above: Performed By: #### C MP ####[facility] [address]xl[address] [place], [place] [address]Dr. Devin Suresh ALP [Catalytic activity/Vol] 98 U/L Normal 46-[address] [facility] Comment on above: Performed By: #### C MP ####[facility] L[address]qzzfty[address] [place], [place] [address]Dr. Devin Suresh ALT [Catalytic activity/Vol] 17 U/L Normal 14-[address] [facility] Comment on above: Performed By: #### C MP ####[facility] I[address]wr[address] [place], [place] [address]Dr. Devin Suresh Anion gap [Moles/Vol] 12.0 mmol/L Normal [facility] Comment on above: Performed By: #### C MP ####[facility] T[address]sy[address]joy[address] [place], [place] [address]Dr. Devin Suresh AST [Catalytic activity/Vol] 6 U/L Critically low 15-[address] [facility] Comment on above: Performed By: #### C MP ####[facility] V[address] [place], [place] [address]Dr. Devin Suresh Bilirubin [Mass/Vol] 0.3 mg/dL Normal 0.2-1.[address] [facility] Comment on above: Performed By: #### C MP ####[facility] [address]xu[address] [place], [place] [address]Dr. Devin Suresh Calcium [Mass/Vol] 8.1 mg/dL Critically low 8.5-10.1 [facility] Comment on above: Performed By: #### C MP ####[facility] [address]ze[address] [place], [place] [address]Dr. Devin Suresh Chloride [Moles/Vol] 108 mmol/L Critically high 98-[address] [facility] Comment on above: Performed By: #### C MP ####[facility] [address] [place], [place] [address]Dr. Devin Suresh CO2 [Moles/Vol] 25.4 mmol/L Normal 21.0-32.0 [facility] Comment on above: Performed By: #### C MP ####[facility] [address] [place], [place] [address]Dr. Devin Kerwin Creatinine [Mass/Vol] 0.80 mg/dL Normal 0.55-1.[address] [facility] Comment on above: Performed By: #### C MP ####[facility] [address] [place], [place] [address]Dr. Devin Kerwin EGFR-AF ARMENIAN >60 Normal >=60 [facility] Comment on above: Performed By: #### C MP ####[facility] [address] [place], [place] [address]Dr. Tishemily Kerwin EGFR-NON AF ARMENIAN >60 Normal >=60 [facility] Comment on above: Performed By: #### C MP ####[facility] [address] [place], [place] [address]Dr. Devin Suresh Globulin (S) [Mass/Vol] 3.0 g/dL Normal [facility] Comment on above: Performed By: #### C MP ####[facility] [address] [place] [id number]. Devin Suresh Glucose [Mass/Vol] 153 mg/dL Critically high 74-106 [facility] Comment on above: Performed By: #### C MP ####[facility] [address] [place] [id number]. Devin Suresh Potassium [Moles/Vol] 3.4 mmol/L Critically low 3.5-5.[address] [facility] Comment on above: Performed By: #### C MP ####[facility] [address] [place] [id number]. Devin Suresh Protein [Mass/Vol] 5.7 g/dL Critically low 6.4-8.2 [facility] Comment on above: Performed By: #### C MP ####[facility] [address] [place] [address]Dr. Devin Suresh Sodium [Moles/Vol] 142 mmol/L Normal 136-145 [facility] Comment on above: Performed By: #### C MP ####[facility] [address] [place] [address]Dr. Devin Suresh Urea nitrogen [Mass/Vol] 16.0 mg/dL Normal 7.0-18.[address] [facility] Comment on above: Performed By: #### C MP ####[facility] [address] [place] [address]Dr. Devin Suresh Urea nitrogen/Creatinine [Mass ratio] 20.0 mg/mg Normal [facility] Comment on above: Performed By: #### C MP ####[facility] [address] [place] [id number]. Devin Kerwin XR SACRUM_COCCYXon 2 XR SACRUM_COCCYX Normal [facility] CHEMISTRYOrdered By: Lab ROP User on 11-06-2021 Glucose [Mass/Vol] 123 mg/dL High 55 - 99 mg/dL [facility] POC Subsection Comment on above: Result Comment: Peter yeh RN/ POC Device [id number] Invalid Interpretation Code [facility] POC Subsection POC User ID [id number] Invalid Interpretation Code [facility] POC Subsection POC Username LATONYA LORENZO Invalid Interpretation Code [facility] POC Subsection Glucose [Mass/Vol] 94 mg/dL Normal 55 - 99 mg/dL [facility] POC Subsection Comment on above: Result Comment: Peter firaheem RN/MD POC Device SN [id number] Invalid Interpretation Code [facility] POC Subsection POC User ID [id number] Invalid Interpretation Code [facility] POC Subsection POC Username LATONYA LORENZO Invalid Interpretation Code [facility] POC Subsection CHEMISTRYOrdered By: Lab ROP User on 11-05-2021 Glucose [Mass/Vol] 130 mg/dL High 55 - 99 mg/dL [facility] POC Subsection Comment on above: Result Comment: Prema piper Meter POC Device SN [id number] Invalid Interpretation Code [facility] POC Subsection POC User ID [id number] Invalid Interpretation Code [facility] POC Subsection POC Username BRIAN KERNJASLela Invalid Interpretation Code [facility] POC Subsection CHEMISTRYOrdered By: SYSTEM SYSTEM on 11-05-2021 HCG.beta subunit Qn 9 m[IU]/mL High 1 - 3 mIU/mL [facility] Remisol CEFEPIME:SUSC:PT:ISOLATE:ORD QN:MICon 11-04-2021 Cefepime DOMENIC [Susc] 10,000 cfu/ml Proteu s mirabilis 50,000 cfu/ml Staphylococcus species [facility] CHEMISTRYOrdered By: SYSTEM SYSTEM on 11-04-2021 Albumin [...] - 4.0 gm/dL [facility] Remisol Glucose [Mass/Vol] 260 mg/dL High 55 [...] 10 - 20 [facility] Remisol [facility] Proteus mirabilis Proteus mirabilis [facility] HEMATOLOGYOrdered By: SYSTEM SYSTEM on 11-04-2021 Basophils/100 [...] - 11.0 E9/L [facility] HemeAutoSS URINALYSISOrdered By: Abiad Villagomez on 11-04-2021 Bacteria LM Ql (Urine [...] PM) Normal Negative [facility] UA Auto SS [place].plasma/Lithiu m.RBC (Bld) [Mass ratio] 0-3 /HPF Normal [...] [place] [facility] Auto SS Urobilinogen Qn (U) [id number] {Sheyla'U}/dL Normal 0.0 - 1.0 EU/dL [facility] [...] 1.73 m2 [facility] Chem S Glucose [Mass/Vol] 158 mg/dL Normal 55 - 199 mg/dL [facility] [...] POS [place] (10/09/21 4:48 PM) Normal [facility] Man Sero SARS-CoV+SARS-CoV-2 (COVID-19) Ag IA.rapid Ql [...] [facility] [place] Chem S Glucose [Mass/Vol] 228 mg/dL High 55 - 199 mg/dL [facility] [...] 13.2 % Normal 10.9 - 14.2 % [facility] HemeAutoSS Hematocrit (Bld) [Volume fraction] 38.8 % Normal 34.0 - 46.0 % [facility] HemeAutoSS Hemoglobin (Bld) [Mass/Vol] 13.6 g/dL Normal 12.0 - 16.0 gm/dL [facility] HemeAutoSS MCH (RBC) [Entitic mass] 31.5 pg Normal 27.0 - 34.0 pg [facility] HemeAutoSS MCHC (RBC) [Mass/Vol] 35.0 g/dL Normal 31.4 - 36.0 gm/dL [facility] HemeAutoSS MCV (RBC) [Entitic vol] 90.2 fL Normal 80.0 - 100.0 fL [facility] HemeAutoSS Platelet mean volume (Bld) [Entitic vol] 7.5 fL Normal 6.4 - 10.8 fL [facility] HemeAutoSS Platelets (Bld) [#/Vol] 358.0 E9/L Normal 150.0 - 500.0 E9/L [facility] HemeAutoSS RBC (Bld) [#/Vol] 4.3 E12/L Normal 4.3 - 5.9 E12/L [facility] HemeAutoSS WBC corrected for nucl RBC Auto (Bld) [#/Vol] 7.5 E9/L Normal 4.0 - 11.0 E9/L [facility] HemeAutoSS COVID Quick Testingon 2021 Result Positive [employer] Other Basic Metabolic Panelon 05-25 Anion gap [Moles/Vol] 9 mmol/L Low 10 - 2 0 mmol/L [facility] Calcium [Mass/Vol] 7.8 mg/dL Low 8.4 - 10. 2 mg/dL [facility] Chloride [Moles/Vol] 119 mmol/L High 98 - 10 8 mmol/L [facility] Creatinine [Mass/Vol] 0.72 mg/dL 0.40 - 1.10 [facility] GFR/1.73 sq M predicted among non-blacks MDRD (S/P/Bld) [Vol rate/Area] The eGFR should be used for monitoring renal function only and not for medication dosing. [facility] GFR/1.73 sq M.predicted CKD-EPI (S/P/Bld) [Vol rate/Area] 103 >=60 mL/min/1.73 m2 [facility] Glucose [Mass/Vol] 70 mg/dL 65 - 99 mg/dL [facility] HCO3 [Moles/Vol] 22 mmol/L 21 - 32 mmol/L [facility] Interpretation and review of laboratory results Abnormal [facility] Potassium [Moles/Vol] 3.5 mmol/L 3.5 - 5.1 mmol/L [facility] Sodium [Moles/Vol] 146 mmol/L High 135 - 145 mmol/L [facility] Urea nitrogen [Mass/Vol] 8 mg/dL 8 - 25 mg/dL [facility] Urea nitrogen/Creatinine [Mass ratio] 11.1 mg/mg [facility] CBCon 06-05-2020 Erythrocyte distribution width (RBC) [Entitic vol] 12.2 % 11.6 - 14.8 % [facility] Hematocrit (Bld) [Volume fraction] 35.1 % Low 36 - 46 % [facility] Hemoglobin (Bld) [Mass/Vol] 11.4 g/dL Low 12 - 16 g/dL [facility] Interpretation and review of laboratory results Abnormal [facility] MCH (RBC) [Entitic mass] 30.6 pg 26 - 34 pg [facility] MCHC (RBC) [Mass/Vol] 32.5 g/dL 31 - 3 7 g/dL [facility] MCV (RBC) [Entitic vol] 94.4 fL 80 - 100 fL [facility] Nucleated RBC (Bld) [#/Vol] 0.00 10*3/uL [facility] Nucleated RBC/100 WBC (Bld) [Ratio] 0.0 % [facility] Platelet mean volume (Bld) [Entitic vol] 9.4 fL 9.4 - 12.4 fL [facility] Platelets (Bld) [#/Vol] 191 10*3/uL [facility] RBC (Bld) [#/Vol] 3.72 10*6/uL Low [facility] WBC (Bld) [#/Vol] 5.46 10*3/uL [facility] Lactic Acid, Plasmaon 2020 Interpretation and review of laboratory results Normal [facility] Lactate [Moles/Vol] 1.9 mmol/L 0.6 - 2 mmol/L [facility] Magnesiumon 06-05-2020 Magnesium [Mass/Vol] 1.8 mg/dL 1.6 - 2 .4 mg/dL [facility] Otheron 06-05-2020 Interpretation and review of laboratory results Normal [facility] POC Glucoseon 06-05-2020 Glucose [Mass/Vol] 201 mg/dL High 65 - 99 mg/dL [facility] Interpretation and review of laboratory results Abnormal [facility] Glucose [Mass/Vol] 143 mg/dL High 65 - 99 mg/dL [facility] Interpretation and review of laboratory results Abnormal [facility] Glucose [Mass/Vol] 93 mg/dL 65 - 99 mg/dL [facility] TSHon 06-05-2020 Interpretation and review of laboratory results Normal [facility] TSH Qn 2.35 m[IU]/L [facility] Basic Metabolic Panelon 05-25 Anion gap [Moles/Vol] 11 mmol/L 10 - 2 0 mmol/L [facility] Calcium [Mass/Vol] 7.8 mg/dL Low 8.4 - 10. 2 mg/dL [facility] Chloride [Moles/Vol] 115 mmol/L High 98 - 10 8 mmol/L [facility] Creatinine [Mass/Vol] 0.90 mg/dL 0.40 - 1.10 [facility] GFR/1.73 sq M predicted among non-blacks MDRD (S/P/Bld) [Vol rate/Area] The eGFR should be used for monitoring renal function only and not for medication dosing. [facility] GFR/1.73 sq M.predicted CKD-EPI (S/P/Bld) [Vol rate/Area] 79 >=60 mL/min/1.73 m2 [facility] Glucose [Mass/Vol] 107 mg/dL High 65 - 99 mg/dL [facility] HCO3 [Moles/Vol] 22 mmol/L 21 - 32 mmol/L [facility] Interpretation and review of laboratory results Abnormal [facility] Potassium [Moles/Vol] 3.7 mmol/L 3.5 - 5.1 mmol/L [facility] Sodium [Moles/Vol] 144 mmol/L 135 - 145 mmol/L [facility] Urea nitrogen [Mass/Vol] 14 mg/dL 8 - 25 mg/dL [facility] Urea nitrogen/Creatinine [Mass ratio] 15.6 mg/mg [facility] CBC WITH AUTO DIFFERENTIALon 06-04-2020 Basophils (Bld) [#/Vol] 0.08 10*3/uL [facility] Basophils/100 WBC (Bld) 1.1 % [facility] Eosinophils (Bld) [#/Vol] 0.16 10*3/uL [facility] Eosinophils/100 WBC (Bld) 2.2 % [facility] Erythrocyte distribution width (RBC) [Entitic vol] 12.3 % 11.6 - 14.8 % [facility] Hematocrit (Bld) [Volume fraction] 36.0 % 36 - 46 % [facility] Hemoglobin (Bld) [Mass/Vol] 11.8 g/dL Low 12 - 16 g/dL [facility] Immature granulocytes (Bld) [#/Vol] 0.02 10*3/uL [facility] Immature granulocytes/100 WBC (Bld) 0.30 % [facility] Comment on above: The IG parameter is the percentage of metamyelocytes, myelocytes and promyelocytes. An immature granulocyte count (IG) of 1% or more suggests the possibility of infection, an IG count of 3% is very likely related to an infection. Interpretation and review of laboratory results Abnormal [facility] Lymphocytes (Bld) [#/Vol] 2.82 10*3/uL [facility] Lymphocytes/100 WBC (Bld) 39.6 % [facility] MCH (RBC) [Entitic mass] 31.1 pg 26 - 34 pg [facility] MCHC (RBC) [Mass/Vol] 32.8 g/dL 31 - 3 7 g/dL [facility] MCV (RBC) [Entitic vol] 95.0 fL 80 - 100 fL [facility] Monocytes (Bld) [#/Vol] 0.45 10*3/uL [facility] Monocytes/100 WBC (Bld) 6.3 % [facility] Neutrophils (Bld) [#/Vol] 3.59 10*3/uL [facility] Neutrophils/100 WBC (Bld) 50.5 % [facility] Nucleated RBC (Bld) [#/Vol] 0.00 10*3/uL [facility] Nucleated RBC/100 WBC (Bld) [Ratio] 0.0 % [facility] Platelet mean volume (Bld) [Entitic vol] 9.7 fL 9.4 - 12.4 fL [facility] Platelets (Bld) [#/Vol] 234 10*3/uL [facility] RBC (Bld) [#/Vol] 3.79 10*6/uL Low [facility] WBC (Bld) [#/Vol] 7.12 10*3/uL [facility] Hemoglobin A1con 06-04-2020 Average glucose Estimated from glycated hemoglobin mass conc (Bld) 246 mg/dL High 68 - 114 mg/dL [facility] HbA1c (Bld) [Mass fraction] 10.2 % High 4 - 5.6 % [facility] Interpretation and review of laboratory results Abnormal [facility] Normal: 4.0% - 5.6% Increased risk for diabetes: 5.7% - 6.4% Diabetes: >= 6.5% Pediatrics: No established reference range Estimated average glucose: 68-114 mg/dL [facility] Magnesiumon 06-04-2020 Interpretation and review of laboratory results Normal [facility] Magnesium [Mass/Vol] 1.6 mg/dL 1.6 - 2 .4 mg/dL [facility] POC Glucoseon 06-04-2020 Glucose [Mass/Vol] 79 mg/dL 65 - 99 mg/dL [facility] Interpretation and review of laboratory results Normal [facility] Glucose [Mass/Vol] 108 mg/dL High 65 - 99 mg/dL [facility] Interpretation and review of laboratory results Abnormal [facility] Glucose [Mass/Vol] 134 mg/dL High 65 - 99 mg/dL [facility] Interpretation and review of laboratory results Abnormal [facility] Glucose [Mass/Vol] 118 mg/dL High 65 - 99 mg/dL [facility] Interpretation and review of laboratory results Abnormal [facility] Reflex Lactic Acid, Plasmaon 06-04-2020 Interpretation and review of laboratory results Abnormal [facility] Lactate [Moles/Vol] 2.1 mmol/L High 0.6 - 2 mmol/L [facility] CBC WITH AUTO DIFFERENTIALon 06-03-2020 Basophils (Bld) [#/Vol] 0.06 10*3/uL [facility] Basophils/100 WBC (Bld) 0.8 % [facility] Eosinophils (Bld) [#/Vol] 0.11 10*3/uL [facility] Eosinophils/100 WBC (Bld) 1.4 % [facility] Erythrocyte distribution width (RBC) [Entitic vol] 12.3 % 11.6 - 14.8 % [facility] Hematocrit (Bld) [Volume fraction] 38.8 % 36 - 46 % [facility] Hemoglobin (Bld) [Mass/Vol] 13.1 g/dL 12 - 16 g/dL [facility] Immature granulocytes (Bld) [#/Vol] 0.02 10*3/uL [facility] Immature granulocytes/100 WBC (Bld) 0.30 % [facility] Comment on above: The IG parameter is the percentage of metamyelocytes, myelocytes and promyelocytes. An immature granulocyte count (IG) of 1% or more suggests the possibility of infection, an IG count of 3% is very likely related to an infection. Lymphocytes (Bld) [#/Vol] 1.86 10*3/uL [facility] Lymphocytes/100 WBC (Bld) 24.1 % [facility] MCH (RBC) [Entitic mass] 30.8 pg 26 - 34 pg [facility] MCHC (RBC) [Mass/Vol] 33.8 g/dL 31 - 3 7 g/dL [facility] MCV (RBC) [Entitic vol] 91.1 fL 80 - 100 fL [facility] Monocytes (Bld) [#/Vol] 0.37 10*3/uL [facility] Monocytes/100 WBC (Bld) 4.8 % [facility] Neutrophils (Bld) [#/Vol] 5.29 10*3/uL [facility] Neutrophils/100 WBC (Bld) 68.6 % [facility] Nucleated RBC (Bld) [#/Vol] 0.00 10*3/uL [facility] Nucleated RBC/100 WBC (Bld) [Ratio] 0.0 % [facility] Platelet mean volume (Bld) [Entitic vol] 9.7 fL 9.4 - 12.4 fL [facility] Platelets (Bld) [#/Vol] 253 10*3/uL [facility] RBC (Bld) [#/Vol] 4.26 10*6/uL [facility] WBC (Bld) [#/Vol] 7.71 10*3/uL [facility] COVID-19, Molecularon 2020 Interpretation and review of laboratory results Normal [facility] SARS-CoV-2 Not Detected Not Detected [facility] Comment on above: This test was perfor [...] at the following links: For Healthcare Providers: https://www.fda.gov/media/852599/download For Patients: https://www.fda.gov/media/932022/download CRITICAL CAREon 06-03-2020 Joel Pickett 06/03/2020 4:35 [...] radiographic studies and re-evaluation of patient's condition. [facility] CT Foot Left Without Contras ton 06-03-2020 1. There appears to be a small amount of soft tissue swelling along the plantar and medial aspect of the 1st toe which may be due to a cellulitis, but this is nonspecific. There is no CT evidence of osteomyelitis. 2. There are degenerative and postsurgical changes of the ankle as described above. Workstation ID: [id number] [facility] Interface, Rad In Fu ji Speechq - [...] ankle as described above. Workstation ID: [id number] [facility] EXAMINATION: CT scan left foot and ankle [...] No focal fluid density collection is identified. [facility] Chem 7on 06-03-2020 Anion gap [Moles/Vol] 11 mmol/L 10 - 2 0 mmol/L [facility] Chloride [Moles/Vol] 109 mmol/L High 98 - 10 8 mmol/L [facility] Creatinine [Mass/Vol] 1.28 mg/dL High 0.40 - 1.10 [facility] GFR/1.73 sq M predicted among non-blacks MDRD (S/P/Bld) [Vol rate/Area] The eGFR should be used for monitoring renal function only and not for medication dosing. [facility] GFR/1.73 sq M.predicted CKD-EPI (S/P/Bld) [Vol rate/Area] 51 Low >=60 mL/min/1.73 m2 [facility] Glucose [Mass/Vol] 288 mg/dL High 65 - 99 mg/dL [facility] HCO3 [Moles/Vol] 27 mmol/L 21 - 32 mmol/L [facility] Interpretation and review of laboratory results Abnormal [facility] Potassium [Moles/Vol] 3.9 mmol/L 3.5 - 5.1 mmol/L [facility] Sodium [Moles/Vol] 143 mmol/L 135 - 145 mmol/L [facility] Urea nitrogen [Mass/Vol] 16 mg/dL 8 - 25 mg/dL [facility] Urea nitrogen/Creatinine [Mass ratio] 12.5 mg/mg [facility] Lactic Acid, Plasmaon 2020 Interpretation and review of laboratory results Abnormal [facility] Lactate [Moles/Vol] 2.6 mmol/L High 0.6 - 2 mmol/L [facility] Otheron 06-03-2020 Extra Tube Hold for add-ons. [facility] Comment on above: Auto resulted. POC Glucoseon 06-03-2020 Glucose [Mass/Vol] 288 mg/dL High 65 - 99 mg/dL [facility] Interpretation and review of laboratory results Abnormal [facility] CBC W/DIFFon 08-10-2019 ABS BASOPHILS 0.1 10*3/uL Normal 0.0-0.2 [facility] Comment on above: Performed By: #### 5 0103 #### [facility] [address] ABS IMM GRANS 0.0 10*3/uL Normal 0.0-0.2 [facility] Comment on above: Performed By: #### 5 0103 #### [facility] [address] [place] [address], [facility] ABS NEUTROPHILS 7.5 10*3/uL Normal 1.6-7.6 [facility] Comment on above: Performed By: #### 5 0103 #### [facility] [address] [place] [address], [facility] Basophils/100 WBC (Bld) 0.7 % Normal 0.0-1.0 [facility] Comment on above: Performed By: #### 5 0103 #### [facility] [address] [place] [address], [facility] Eosinophils (Bld) [#/Vol] 0.2 10*3/uL Normal 0.0-0.5 [facility] Comment on above: Performed By: #### 5 0103 #### [facility] [address] [facility] [place] [address], [facility] Eosinophils/100 WBC (Bld) 1.5 % Normal 0.0-6.0 [facility] Comment on above: Performed By: #### 5 0103 #### [facility] 3000 [facility]. [address] Erythrocyte distribution width (RBC) [Ratio] 12.0 % Normal 11.5-15.0 [facility] Comment on above: Performed By: #### 5 0103 #### [facility] [address] [facility] [address] Hematocrit (Bld) [Volume fraction] 40.4 % Normal 36.0-45.0 [facility] Comment on above: Performed By: #### 5 0103 #### [facility] [address] [facility] [place] [address], [facility] Hemoglobin (Bld) [Mass/Vol] 13.5 g/dL Normal 12.0-15.0 [facility] Comment on above: Performed By: #### 5 3 #### [facility] [address] [facility] [place] [address], [facility] IMMATURE GRANS 0.4 % Normal 0.0-1.0 [facility] Comment on above: Performed By: #### 5 0103 #### [facility] [address] [facility] [place] [address], [facility] Lymphocytes (Bld) [#/Vol] 2.3 10*3/uL Normal 1.2-4.0 [facility] Comment on above: Performed By: #### 5 3 #### [facility] [address] [facility] [place] [address], [facility] Lymphocytes/100 WBC (Bld) 21.5 % Normal 20.0-45.0 [facility] Comment on above: Performed By: #### 5 0103 #### [facility] [address] [place] [address], [facility] MCH (RBC) [Entitic mass] 29.9 pg Normal 27.0-33.0 [facility] Comment on above: Performed By: #### 5 0103 #### [facility] [address] [facility] [place] [address], [facility] MCHC (RBC) [Mass/Vol] 33.4 g/dL Normal 32.0-35.0 [facility] Comment on above: Performed By: #### 5 0103 #### [facility] [address] [place] [address], [facility] MCV (RBC) [Entitic vol] 89.6 fL Normal 82.0-98.0 [facility] Comment on above: Performed By: #### 5 0103 #### [facility] [address] [address], [facility] Monocytes (Bld) [#/Vol] 0.6 10*3/uL Normal 0.1-1.0 [facility] Comment on above: Performed By: #### 5 0103 #### [facility] [address] [address], [facility] MONOS 5.6 % Normal 5.0-12.0 [facility] Comment on above: Performed By: #### 5 0103 #### [facility] [address] [address], [facility] Neutrophils/100 WBC (Bld) 70.3 % Normal 40.0-72.0 [facility] Comment on above: Performed By: #### 5 0103 #### [facility] [address] [place] [address], [facility] Nucleated RBC/100 WBC (Bld) [Ratio] 0 % Normal 0-0 [facility] Comment on above: Performed By: #### 102 #### [facility] [address] [place] [address], [facility] PLAT CNT 422 10*3/uL High 150-400 [facility] Comment on above: Performed By: #### 102 #### [facility] [address] [place] [address], [facility] RBC (Bld) [#/Vol] 4.51 10*6/uL Normal 3.80-5.00 [facility] Comment on above: Performed By: #### 102 #### [facility] [address] [facility] [place] [address], [facility] WBC (Bld) [#/Vol] 10.63 10*3/uL High 4.00-10.60 [facility] Comment on above: Performed By: #### 102 #### [facility] [address] [place] [address], [facility] COMP METABOLIC PANELon 08-09 Albumin [Mass/Vol] 4.2 g/dL Normal 3.5-5.7 [facility] Comment on above: Performed By: #### 0 0121 #### [facility] [address] [facility] [place] [address], [facility] ALKALINE PHOSPH 90 IU/L Normal 34-104 [facility] Comment on above: Performed By: #### 0 0121 #### [facility] [address] [place] [address], [facility] ALT [Catalytic activity/Vol] 6 U/L Low 7-52 [facility] Comment on above: Performed By: #### 0 0121 #### [facility] [address] [place] [address], [facility] AST [Catalytic activity/Vol] 9 U/L Low 13-39 [facility] Comment on above: Performed By: #### 0 0121 #### [facility] [address] [place] [address], [place] Bilirubin [Mass/Vol] 0.3 mg/dL Normal 0.3-1.0 [facility] Comment on above: Performed By: #### 0 0121 #### [facility] [address] [place] [address], [place] Calcium [Mass/Vol] 9.4 mg/dL Normal 8.6-10.3 [facility] Comment on above: Performed By: #### 0 0121 #### [facility] [address] [place] [address], [place] Chloride [Moles/Vol] 104 mmol/L Normal 98-107 [facility] Comment on above: Performed By: #### 0 0121 #### [facility] [address] [place] [address], [place] CO2 [Moles/Vol] 25 mmol/L Normal 21-31 [facility] Comment on above: Performed By: #### 0 0121 #### [facility] [address] [place] [address], [place] Creatinine [Mass/Vol] 0.89 mg/dL Normal 0.60-1.20 [facility] Comment on above: Performed By: #### 0 0121 #### [facility] [address] [place] [address], [place] GFR/1.73 sq M predicted among blacks MDRD (S/P/Bld) [Vol rate/Area] mL/min/{1.73_m2} Normal >60 [facility] Comment on above: Performed By: #### 0 0121 #### [facility] [address] [place] [address], [place] GFR/1.73 sq M predicted among non-blacks MDRD (S/P/Bld) [Vol rate/Area] mL/min/{1.73_m2} Normal >60 [facility] Comment on above: Performed By: #### 0 0121 #### [facility] [address] [place] [address], [facility] Glucose [Mass/Vol] 155 mg/dL High 70-100 [facility] Comment on above: Performed By: #### 0 0121 #### [facility] [address] [place] [address], [place] Potassium [Moles/Vol] 4.3 mmol/L Normal 3.5-5.1 [facility] Comment on above: Performed By: #### 0 0121 #### [facility] [address] [place] [address], [place] Protein [Mass/Vol] 7.2 g/dL Normal 6.0-8.3 [facility] Comment on above: Performed By: #### 0 0121 #### [facility] [address] [place] [address], [facility] Sodium [Moles/Vol] 138 mmol/L Normal 136-145 [facility] Comment on above: Performed By: #### 0 0121 #### [facility] [address] [place] [address], [facility] Urea nitrogen [Mass/Vol] 24 mg/dL Normal 7-25 [facility] Comment on above: Performed By: #### 0 0121 #### [facility] [address] [facility] [place] [address], [facility] CT LUMBAR SPINE WO CONTRASTo n 08-10-2019 CT LUMBAR SPINE WO CONTRAST [facility] Department of Radiology [address] [place] [address] Patient Name: ADDIE JEAN BAPTISTE : 1975 Sex: F Age: Race: White Pt. Location: [facility] Patient Status: E Ordered Date: 08/10/2019 [...] achievable Electronically signed: Carie Sanchez. Transcribed by: [email or web address], User Resident: Electronically Signed by: CARIE SANCHEZ @ 08/10/2019 08:35 PM Normal [facility] Comment on above: Order Comment: Spina l Stenosis KEPPRA ILon 08-10-2019 [place] Normal [facility] Comment on above: Result Comment: Test Performed by [facility] [address] [place] [address] [id number] - Released 08/10/2019 22:25 KEPPRA 10 ug/mL Normal [facility] Comment on above: Result Comment: A [...] and toxicity is not known. LITHIUMon 08-10-2019 [place] [Moles/Vol] Normal [facility] Comment on above: Result Comment: Test Performed by [facility] [address] [place] [address] [id number] - Released 08/10/2019 22:35 Result changed by IF on 08/10/2019 22:35. The previous value was Test Performed by [employer] [address] [place] [address] [id number] [phone] [place] [Moles/Vol] mmol/L Low 0.6-1.2 [facility] POC URINE PREGNANCYon 2019 Beta HCG ( test) Ql (U) Negative Normal NEGATIVE [facility] Comment on above: Result Comment: Perf ormed in Emergency Department. Performed By: #### 8 4140 #### [facility] [address] [place] [address], [facility] TOX PANEL URINEon 08-10-2019 50 THC Negative Normal NEGATIVE [facility] Comment on above: Performed By: #### 3 1079 #### [facility] [address] [place] [address], [facility] BARBITURATES Negative Normal NEGATIVE [facility] Comment on above: Performed By: #### 3 1079 #### [facility] [address] [place] [address], [facility] Benzodiazepines Ql (U) Negative Normal NEGATIVE [facility] Comment on above: Performed By: #### 3 1079 #### [facility] [address] [place] [address], [facility] Cocaine Ql (U) Negative Normal NEGATIVE [facility] Comment on above: Performed By: #### 3 1079 #### [facility] [address] [place] [address], [facility] Methadone Ql (U) Negative Normal NEGATIVE [facility] Comment on above: Performed By: #### 3 1079 #### [facility] [address] [place] [address], [facility] MONO AMPHET Negative Normal NEGATIVE [facility] Comment on above: Performed By: #### 3 1079 #### [facility] [address] [place] [address], [facility] Opiates Ql (U) Negative Normal NEGATIVE [facility] Comment on above: Performed By: #### 3 1079 #### [facility] [address] [place] [address], [facility] Phencyclidine Ql (U) Negative Normal NEGATIVE [facility] Comment on above: Performed By: #### 3 1079 #### [facility] [address] [place] [address], [place] PROPOXYPHENE Negative Normal NEGATIVE [facility] Comment on above: Performed By: #### 3 1079 #### [facility] [address] [place] [address], [facility] TRICYCLICS Positive Abnormal NEGATIVE [facility] Comment on above: Performed By: #### 3 1079 #### [facility] [address] [place] [address], [facility] VALPROIC ACIDon 08-10-2019 VALPROIC ACID (DEPAKOTE) 57 mcg/mL Low 60-100 [facility] Comment on above: Performed By: #### 4 6956 #### [facility] [address] [facility] [place] [address], [facility] CHEST 2 VIEW PA AND LATon CHEST 2 VIEW PA AND LAT Patient Name: ORGAN, ADDIE STUDY: CHEST 2 VIEW PA AND LAT; 04/07/2019 7:13 am INDICATION: Pneumothorax. COMPARISON: 04/06/2019 ACCESSION NUMBER(S): [id number] ORDERING CLINICIAN: RADHA STEELE FINDINGS: There is [...] Electronically signed by: MK HERNANDEZ MD Normal [facility] Discharge [id number] Discharge Profile2 Discharge Orders: Problem List: [...] dual chamber ICD upgrade currently with a Med[employer] [id number] Evera MRI XT DR device. See full [...] 3 month follow up with EP in [facility] office, CXR, and device check. Provider FINAL REVIEW of Orders: Final Review: Final Review of Medication Reconciliation and Orders Completedby TRAVEL REGISTERED NURSE NICU Reviewing ProviderAmy MARY Steele at 07-Apr-2019 13:43:42 Appointments: Follow-Up Appointment 01: Physician/Dept/Kyle [facility] office Reason for Referralwound check Scheduled Date/[id number] 02:30 Phone [phone] Follow-Up Appointment 02: [facility] Reason for Referralchest X-Ray Scheduled Date/[id number] 02:15 Phone [phone] Follow-Up Appointment 03: Physician/Dept/[facility] Reason for Referraldevice check Scheduled Date/[id number] 03:00 Phone [phone] Follow-Up Appointment 04: Physician/Dept/ServiceDr. Noble Scheduled Date/[id number] 03:40 Phone [phone] Electronic Signatures: Radha Steele ([employer] ACTIVITIES CLERK) (Signed 07-Apr-2019 13:51) Authored: Discharge Orders, Hospital Course (Home Care/Gold Form), Provider FINAL REVIEW of Orders, Gold Form - Road Marker Summary Ida Brand (CN) (Signed 07-Apr-2019 13:50) Authored: Appointments Last Updated: 07-Apr-2019 13:51 by Radha Steele (TRAVEL REGISTERED NURSE NICU-[facility]) Normal [facility] GLUCOSE-POCTon 04-07-2019 Glucose [Mass/Vol] 150 mg/dL High 74 - 99 [facility] Comment on above: Performed By: #### C BC #### [address] [address] Glucose [Mass/Vol] 205 mg/dL High 74 - 99 [facility] Comment on above: Performed By: #### C BC #### [address] [address] Glucose [Mass/Vol] 365 mg/dL High 74 - 99 [facility] Comment on above: Performed By: #### C BC #### [address] [address] BASIC METABOLIC PANELon 11- Anion gap [Moles/Vol] 17 mmol/L Normal 10 - 20 [facility] Comment on above: Performed By: #### B MP #### [address] [address] Calcium [Mass/Vol] 8.8 mg/dL Normal 8.6 - 10.3 [facility] Comment on above: Performed By: #### B MP #### [address] [address] Chloride [Moles/Vol] 97 mmol/L Low 98 - 107 [facility] Comment on above: Performed By: #### B MP #### [address] [address] Creatinine [Mass/Vol] 0.80 mg/dL Normal 0.50 - 1.05 [facility] Comment on above: Performed By: #### B MP #### [address] [address] GFR- AM. >60 Normal >60 [facility] Comment on above: Result Comment: CALC ULATIONS OF ESTIMATED GFR ARE PERFORMED USING THE MDRD STUDY EQUATION FOR THE IDMS-TRACEABLE CREATININE METHODS. CLIN CHEM 2007;53:766-72 Performed By: #### B MP #### [address] [address] GFR-NON AM. >60 Normal >60 [facility] Comment on above: Performed By: #### B MP #### [address] [address] Glucose [Mass/Vol] 429 mg/dL High 74 - 99 [facility] Comment on above: Performed By: #### B MP #### [address] [address] HCO3 (Bld) [Moles/Vol] 21 mmol/L Normal 21 - 32 [facility] Comment on above: Performed By: #### B MP #### [address] [address] Potassium [Moles/Vol] 3.8 mmol/L Normal 3.5 - 5.3 [facility] Comment on above: Performed By: #### B MP #### [address] [address] Sodium [Moles/Vol] 131 mmol/L Low 136 - 145 [facility] Comment on above: Performed By: #### B MP #### [address] [address] Urea nitrogen [Mass/Vol] 16 mg/dL Normal 6 - 23 [facility] Comment on above: Performed By: #### B MP #### [address] [address] CBCon 04-06-2019 Erythrocyte distribution width (RBC) [Ratio] 11.7 % Normal 11.5 - 14.5 [facility] Comment on above: Performed By: #### C BC #### [address] [address] Hematocrit (Bld) [Volume fraction] 40.2 % Normal 36.0 - 46.0 [facility] Comment on above: Performed By: #### C BC #### [address] [address] Hemoglobin (Bld) [Mass/Vol] 13.9 g/dL Normal 12.0 - 16.0 [facility] Comment on above: Performed By: #### C BC #### [address] [address] MCHC (RBC) [Mass/Vol] 34.6 g/dL Normal 32.0 - 36.0 [facility] Comment on above: Performed By: #### C BC #### [address] [address] MCV (RBC) [Entitic vol] 88 fL Normal 80 - 100 [facility] Comment on above: Performed By: #### C BC #### [address] [address] Platelets (Bld) [#/Vol] 306 10*3/uL Normal 150 - 450 [facility] Comment on above: Performed By: #### C BC #### [address] [address] RBC (Bld) [#/Vol] 4.57 x10E12/L Normal 4.00 - 5.20 [facility] Comment on above: Performed By: #### C BC #### [address] [address] WBC (Bld) [#/Vol] 9.4 10*3/uL Normal 4.4 - 11.3 [facility] Comment on above: Performed By: #### C BC #### [address] [address] CHEST 2 VIEW PA AND LATon CHEST 2 VIEW PA AND LAT Patient Name: ORGAN, ADDIE STUDY: TH CHEST 2 VIEW PA AND LAT; 04/06/2019 8:05 am INDICATION: SVT, preop implant. COMPARISON: None. ACCESSION NUMBER(S): [id number] ORDERING CLINICIAN: ROSALIA NOBLE FINDINGS: CARDIOMEDIASTINAL SILHOUETTE: [...] Electronically signed by: SHAMEKA PEREZ MD Normal [facility] COAGULATION SCREENon 019 aPTT Coag (Bld) [Time] 29 s Normal 28 - 38 [facility] Comment on above: Result Comment: THE APTT IS NO LONGER USED FOR MONITORING UNFRACTIONATED HEPARIN THERAPY. FOR MONITORING HEPARIN THERAPY, USE THE HEPARIN ASSAY. Performed By: #### C OAGS #### [address] [address] INR Coag (PPP) [Relative time] 1.0 {INR} Normal 0.9 - 1.1 [facility] Comment on above: Performed By: #### C OAGS #### [address] [address] PT Coag (PPP) [Time] 10.8 s Normal 9.7 - 12.7 [facility] Comment on above: Performed By: #### C OAGS #### [address] [address] Daily Progress Note-Electrop hysiologyon 04-06-2019 Daily Progress [...] of infection. The patient should call the industrial fabric cutter immediately if symptoms recur, or for any problems. The patient and mother(message left on phone with HIPPA consent) have been instructed accordingly. 2.Follow up with [facility] office in seven days for post-operative wound assessment. 3.Follow up with Device Clinic in twelve weeks for routine device analysis and reprogramming if necessary. Remote monitoring will be instituted and released from [facility] to [facility] as per patient request. Procedures: Complete electrophysiologic [...] pouch was placed. 11.A dual-chamber cardioverter defibrillator ([employer].sm [id number] #[id number]) was attached to the leads and implanted. [...] 6 Fr high RA, CS Bpst Sci [place] new access Right femoral vein 6 Fr His-bundle (right side) Edd[place] Sci [place] access Right femoral vein 6 Fr RV apex, RVOT [facility] [place] new access Complications: The patient tolerated the procedure without any complications or incident. EBL 0 cc Specimens obtained: No Prepared and signed by. Electronic Signatures: Rosalia Noble) (Signed 06-Apr-2019 16:32) Authored: Service, Objective Data, Assessment and Plan, Signature/Cosignature/Att estation Last Updated: 06-Apr-2019 16:32 by Rosalia Noble) Normal [facility] GLUCOSE-POCTon 04-06-2019 Glucose [Mass/Vol] 409 mg/dL High 74 - 99 [facility] Comment on above: Performed By: #### C BC #### [address] [address] Glucose [Mass/Vol] 136 mg/dL High 74 - 99 [facility] Comment on above: Performed By: #### C BC #### [address] [address] Glucose [Mass/Vol] 167 mg/dL High 74 - 99 [facility] Comment on above: Performed By: #### C BC #### [address] [address] Glucose [Mass/Vol] 218 mg/dL High 74 - 99 [facility] Comment on above: Performed By: #### C BC #### [address] [address] Glucose [Mass/Vol] 338 mg/dL [facility] 74 - 99 [facility] Comment on above: Performed By: #### G EMELY #### [address] [address] Glucose [Mass/Vol] 415 mg/dL High 74 - 99 [facility] Comment on above: Performed By: #### G EMELY #### [address] [address] HCG,SERUM QUALITATIVEon 03-25 HCG,SERUM QUALITATIVE Negative Normal Negative [facility] Comment on above: Performed By: #### H CGS #### [address] [address] Patient Profile - Preop v2on 04-06-2019 Patient Profile - Preop v2 Profile: Initial Info: How to be AddressedCathy Spoken Language PreferredEnglish Source of Informationpatient; family Are you currently using the Personal Electronic Health Record or MYUHCAREno Are you interested in learning more about MYCARE for the management of your healthnot at this time Stated Reason for AdmissionEPS Primary Contact Name and NumberSharon Organ [phone] Limitations on Visitors/Phone Callsnone Patient Belongingsremains with patient Patient Belongings Remaining with Patientcell phone/electronics; clothing Medications Brought to Hospitalyes General Health: Weight in kg91.1 kilogram(s) Weight in ltn888.8 pound(s) Weight Methodstated Scale Typestanding Height in [...] Transitionnone Lives Withspouse Living Arrangementshouse Anticipated [facility] Substance: Current or Former Substance Use never: [...] Learning Preferencesindividual instruction Cultural Considerationsnone Developmental Considerationsnone Buddhism Considerationsnone Other learner availableno [place] RiskPatient location auto qualifies him/her for HIGH RISK. Are there any cultural, spiritual, christian practices/values/needs that are important for us to knowno Do you want a visit/item from [facility] Would you like your Senior Accounts Payable Clerk/Video Game Engineer notifiedno Pain Scalenumerical 0-10 Pain Scale Educationteaching [...] ibuprofen: Drug, Other, Active Electronic Signatures: Kristi Soriano) (Signed 06-Apr-2019 07:39) Authored: Profile, Additional Information Last Updated: 06-Apr-2019 07:39 by Kristi Soriano) [facility] Preop Checkliston 04-06-2019 Preop Checklist Preop Checklist: Preop Checklist: Arrival [id number] Arrival Time06:38 Temperature C36.1 degrees C Temperature F96.9 degrees F Heart Rate60 beats per minute Respiratory Rate18 breath per minute Blood Pressure Prjyvkgb57 mm/Hg Blood Pressure Alagjkahc57 mm/Hg NPO [id number] 23:00 ID Band Onyes Allergy Bandyes H&P [...] Glasses / Contactsnot applicable Electronic Signatures: Kristi Soriano) (Signed 06-Apr-2019 07:42) Authored: Preop Checklist Last Updated: 06-Apr-2019 07:42 by Kristi Soriano (RN) Normal [facility] UA MICROSCOPICon 04-06-2019 BACTERIA 1+ /HPF Abnormal [facility] Comment on above: Performed By: #### C BC #### [address] [address] MUCUS 1+ /LPF Normal [facility] Comment on above: Performed By: #### C BC #### [address] [address] RBC 3 /HPF Normal 0-5 [facility] Comment on above: Performed By: #### C BC #### [address] [address] SQUAMOUS EPITH. CELLS 3 /HPF Normal [facility] Comment on above: Performed By: #### C BC #### [address] [address] WBC 8 /HPF Abnormal 0-5 [facility] Comment on above: Performed By: #### C BC #### [address] [address] URINALYSISon 04-06-2019 Appearance (U) CLEAR Normal CLEAR [facility] Comment on above: Performed By: #### U A #### [address] [address] Bilirubin (U) [Mass/Vol] Negative Normal NEGATIVE [facility] Comment on above: Performed By: #### U A #### [address] [address] BLOOD Negative Normal NEGATIVE [facility] Comment on above: Performed By: #### U A #### [address] [address] Color (U) YELLOW Normal STRAW,YELLO W [facility] Comment on above: Performed By: #### U A #### [address] [address] Glucose [Mass/Vol] >=500 (3+) Abnormal NEGATIVE [facility] Comment on above: Performed By: #### U A #### [address] [address] Ketones Ql (U) Negative Normal NEGATIVE [facility] Comment on above: Performed By: #### U A #### [address] [address] Leukocyte esterase Test strip Ql (U) TRACE Abnormal NEGATIVE [facility] Comment on above: Performed By: #### U A #### [address] [address] Nitrite Ql (U) Positive Abnormal NEGATIVE [facility] Comment on above: Performed By: #### U A #### [address] [address] pH (Bld) 5.0 Normal 5.0 - 8.0 [facility] Comment on above: Performed By: #### U A #### [address] [address] Protein (U) [Mass/Vol] Negative Normal NEGATIVE [facility] Comment on above: Performed By: #### U A #### [address] [address] Specific gravity (U) [Rel density] 1.031 Normal 1.005 - 1.035 [facility] Comment on above: Performed By: #### U A #### [address] [address] Urobilinogen Qn (U) <2.0 Normal 0.0 - 1.9 [facility] Comment on above: Performed By: #### U A #### [address] [address] Laboratory Studieson 019 Calcium [Mass/Vol] 9.8 mg/dL 8.2-10.2 [facility] Chloride [Moles/Vol] 98 mmol/L 95-114 [facility] CO2 [Moles/Vol] 19.7 mmol/L Low 22.0-30.0 [facility] Creatinine [Mass/Vol] 0.88 mg/dL 0.44-1.03 [facility] GFR/1.73 sq M predicted among non-blacks MDRD (S/P/Bld) [Vol rate/Area] mL/min/{1.73_m2} [facility] GFR/1.73 sq M.predicted MDRD (S/P/Bld) [Vol rate/Area] mL/min/{1.73_m2} [facility] Comment on above: GFR estimated refere nce range: According to KDOQI guidelines, <60 ml/min/1.73m2 is sufficient to diagnose a patient with chronic kidney disease. Glucose [Mass/Vol] 436 mg/dL High 70-100 [facility] Comment on above: ADA recommended refe rence range Random Glucose Reference Range is dependent on time and content of last meal. Glucose of more than 200 mg/dL in a nonstressed, ambulatory subject supports the diagnosis of Diabetes Mellitus. Pharmacy Creatinine Clearance (Chem N/A [facility] Potassium [Moles/Vol] 4.3 mmol/L 3.5-5.1 [facility] Sodium [Moles/Vol] 134 mmol/L Low 136-146 [facility] Urea nitrogen [Mass/Vol] 13 mg/dL 02-14 [facility] Laboratory Studieson 019 Glucose [Mass/Vol] 148 mg/dL [facility] Comment on above: Random Glucose Refer [...] Hospital MCHC (RBC) [Mass/Vol] 34.0 g/dL 32.0-35.0 [facility] MCV (RBC) [Entitic vol] 92.0 fL [...] Hospital RBC (Bld) [#/Vol] 3.68 10*6/uL 3.60-5.00 [facility] WBC (Bld) [#/Vol] 12.7 10*3/uL High 4.5-11.0 [facility] Glucose [Mass/Vol] Glu2: cleaned meter [facility] Laboratory Studieson 019 Glucose [Mass/Vol] Will notify /rn [facility] Albumin [Mass/Vol] 3.0 g/dL Low 3.2-5.5 [facility] Albumin/Globulin [Mass ratio] 1.1 {ratio} [facility] ALP [Catalytic activity/Vol] 68 U/L 32-92 [facility] ALT No additional P-5'-P [Catalytic activity/Vol] 12 U/L 10-60 [facility] AST [Catalytic activity/Vol] 17 U/L 10-42 [facility] Bilirubin [Mass/Vol] 0.6 mg/dL 0.3-1.2 [facility] Cholesterol [Mass/Vol] 123 mg/dL Low 140-200 [facility] Hospital Protein [Mass/Vol] 5.7 g/dL Low 6.1-7.9 [facility] Triglyceride [Mass/Vol] 75 mg/dL 35-149 [facility] Comment on above: TRIG ATP III CLASSIF ICATION TRIG less than 150 mg/dL Normal TRIG 150-199 mg/dL Borderline high TRIG 200-500 mg/dL High TRIG greater than 500 mg/dL Very high Standard traceable to the Center for Disease Conrtrol and Prevention (CDC) test method. Laboratory Studieson 019 Lactate [Moles/Vol] 1.4 mmol/L [facility] CK [Catalytic activity/Vol] 35 U/L 22-269 [place] [...] - 4.5 Prolactin [Mass/Vol] 6.20 ng/mL 3.34-26.72 [facility] PT Coag (PPP) [Time] 11.0 s 9.0-12.9 [facility] Troponin I.cardiac [Mass/Vol] ng/mL 0-0.02 [facility] Comment on above: KEISHA DC Cut off value > or equal to 0.03 ng/mL in conjunction with clinical conditions of myocardial infarction. (www.escardio.org/guidelines) Amphetamines Ql (U) Negative [facility] Barbiturates Ql (U) Negative [facility] Benzodiazepines Ql (U) Negative [facility] Bilirubin Ql (U) Negative [facility] Cannabinoids Screen Ql (U) Negative [facility] Comment on above: These are unconfirme d results and should not be used for legal purposes. Drug Cut-Off Concentration: AMPH 1000 ng/mL JULIANNA 200 ng/mL ALICE 200 ng/mL COCM 300 ng/mL OP 300 ng/mL PCP 25 ng/mL THC 20 ng/mL Clarity Refractometry automated (U) Clear [facility] Cocaine Ql (U) Negative [facility] Color (U) Yellow [facility] Phencyclidine Ql (U) Negative [facility] Protein (U) [Mass/Vol] Negative [facility] Specific gravity (U) [Rel density] 1.020 1.001-1.030 [facility] Urobilinogen (U) [Mass/Vol] Normal mg/dL [facility] Microbiology Studieson 07-16 Staphylococcus aureus Staphylococcus aureus [facility] BASIC METABOLIC PANELon Glucose mass conc 565 mg/dL Critically high 70-100 [facility] Comment on above: Order Comment: GARCIA D ER 06/25/2018, 15:09, KJD, Called with verbal read back by Romeo Castillo. Result Comment: RESU LTS REPEATED AND CONFIRMED Performed By: #### B ASIC #### [address] [address] Anion gap molar conc 15.6 mmol/L Normal 10-14 [facility] Comment on above: Order Comment: GARCIA D ER 06/25/2018, 15:09, KJD, Called with verbal read back by Romeo Castillo. Performed By: #### B ASIC #### [address] [address] Calcium mass conc 9.8 mg/dL Normal 8.4-10.2 [facility] Comment on above: Order Comment: GARCIA D ER 06/25/2018, 15:09, KJD, Called with verbal read back by Romeo Castillo. Performed By: #### B ASIC #### [address] [address] CO2 molar conc 25.0 mm/Hg Normal 22.0-30.0 [facility] Comment on above: Order Comment: GARCIA D ER 06/25/2018, 15:09, KJD, Called with verbal read back by Romeo Castillo. Performed By: #### B ASIC #### [address] [address] Urea nitrogen mass conc 11 mg/dL Normal 7-22 [facility] Comment on above: Order Comment: GARCIA D ER 06/25/2018, 15:09, KJD, Called with verbal read back by Romeo Castillo. Performed By: #### B ASIC #### [address] [address] Creatinine mass conc 0.70 mg/dL Normal 0.70-1.20 [facility] Comment on above: Order Comment: GARCIA Lauren ER 06/25/2018, 15:09, KJD, Called with verbal read back by Romeo Castillo. Performed By: #### B ASIC #### [address] [address] GFR/1.73 sq M predicted among non-blacks MDRD [...] OR very young -Races other than or -[place]er -People with acute illnesses, amputations, or acute kidney failure. Estimated GFR should be interpreted in clinical context and an alternative method such as a timed urine collection for creatinine clearance used to verify questionable results. (Ref. National Kidney Foundation 2015) Performed By: #### B ASIC #### [address] [address] Chloride molar conc 94 mmol/L Low 100-110 [facility] Comment on above: Order Comment: RADHA SMITH 06/25/2018, 15:09, KJD, Called with verbal read back by Romeo Castillo. Performed By: #### B ASIC #### [address] [address] Potassium molar conc 4.1 mmol/L Normal 3.5-5.0 [facility] Comment on above: Order Comment: GARCIA D ER 06/25/2018, 15:09, KJD, Called with verbal read back by Romeo Castillo. Performed By: #### B ASIC #### [address] [address] Sodium molar conc 135 mmol/L Low 136-145 [facility] Comment on above: Order Comment: GARCIA D ER 06/25/2018, 15:09, KJD, Called with verbal read back by Romeo Castillo. Performed By: #### B ASIC #### [address] [address] CARP1 0 HR DRAWon 06-25-2018 Troponin I.cardiac [...] specificity. Performed By: #### C TP0 #### [address] [address] CARP1 3 HR DRAWon 06-25-2018 Troponin I.cardiac mass conc ng/mL Normal 0.012-0.120 [facility] Comment on above: Result Comment: RE FERENCE RANGE IS 0.012 - 0.120 ng/ml cTnI - The cutoff of 0.120 ng/ml is recommended for diagnosis of AMI, yielding optimal performance of 95% sensitivity and 93% specificity. Performed By: #### C TP3 #### [address] [address] CBC WITH DIFFERENTIALon 02 Basophils #/vol (Bld) 0.07 10*3/uL Normal 0.00-0.20 [facility] Comment on above: Performed By: #### C BCD #### [address] [address] Basophils #/vol (Bld) 0.7 % Normal 0.0-2.0 [facility] Comment on above: Performed By: #### C BCD #### [address] [address] Eosinophils #/vol (Bld) 0.12 10*3/uL Normal 0.00-0.50 [facility] Comment on above: Performed By: #### C BCD #### [address] [address] Eosinophils/100 WBC (Bld) 1.2 % Normal 0.0-4.0 [facility] Comment on above: Performed By: #### C BCD #### [address] [address] Erythrocyte distribution width Ratio (RBC) 11.5 % Normal 11.5-14.5 [facility] Comment on above: Performed By: #### C BCD #### [address] [address] Hematocrit Volume Fraction (Bld) 42.3 % Normal 35.0-47.0 [facility] Comment on above: Performed By: #### C BCD #### [address] [address] Hemoglobin mass conc (Bld) 14.8 g/dL Normal 12.0-16.0 [facility] Comment on above: Performed By: #### C BCD #### [address] [address] Lymphocytes #/vol (Bld) 1.60 10*3/uL Normal 1.00-4.80 [facility] Comment on above: Performed By: #### C BCD #### [address] [address] Lymphocytes/100 WBC (Bld) 15.6 % Low 24.0-44.0 [facility] Comment on above: Performed By: #### C BCD #### [address] [address] MCH Entitic mass (RBC) 31.1 pg Normal 25.6-32.2 [facility] Comment on above: Performed By: #### C BCD #### [address] [address] MCHC mass conc (RBC) 35.0 g/dL Normal 32.0-36.0 [facility] Comment on above: Performed By: #### C BCD #### [address] [address] MCV Entitic volume (RBC) 88.9 fL Normal 82.0-98.0 [facility] Comment on above: Performed By: #### C BCD #### [address] [address] Monocytes #/vol (Bld) 0.56 10*3/uL Normal 0.20-1.20 [facility] Comment on above: Performed By: #### C BCD #### [address] [address] Monocytes/100 WBC (Bld) 5.5 % Normal 5.0-12.0 [facility] Comment on above: Performed By: #### C BCD #### [address] [address] Neutrophils #/vol (Bld) 7.84 10*3/uL High 2.00-7.50 [facility] Comment on above: Performed By: #### C BCD #### [address] [address] Neutrophils/100 WBC (Bld) 76.6 % High 36.0-66.0 [facility] Comment on above: Performed By: #### C BCD #### [address] [address] NRBC COUNT 0.00 Normal 0.00-0.50 [facility] Comment on above: Performed By: #### C BCD #### [address] [address] Nucleated RBC/100 WBC Ratio (Bld) 0.0 % Normal [facility] Comment on above: Performed By: #### C BCD #### [address] [address] Platelet mean volume Entitic volume (Bld) 9.7 fL Normal 9.4-12.4 [facility] Comment on above: Performed By: #### C BCD #### [address] [address] Platelets #/vol (Bld) 314 10*3/uL Normal 150-400 [facility] Comment on above: Performed By: #### C BCD #### [address] [address] RBC #/vol (Bld) 4.76 10*6/uL Normal 3.80-5.10 [facility] Comment on above: Performed By: #### C BCD #### [address] [address] WBC #/vol (Bld) 10.23 10*3/uL Normal 4.80-10.80 [facility] Comment on above: Performed By: #### C BCD #### [address] [address] CULTURE-URINEon 06-25-2018 CULTURE-URINE PATIENT: BRIDGET JEAN BAPTISTE LOCATION: [facility]#: [id number] : 1975 AGE: 43 SEX: F ORDER# [id number] ORDERED BY: PRESTON ESPINO Source: URI Collected: [...] Tobramycin <=4 S Trimeth/Sulfa <=2/ S Normal [facility] Comment on above: Performed By: #### C URIN #### [address] [address] D-DIMER QUANTITATIVEon 06-25 D-DIMER QUANTITATIVE 0.32 mg/L FEU Normal 0.00-0.50 [facility] Comment on above: Result Comment: 06-16 D-DIMER QUANTITATIVE REFERENCE INTERVAL: Anticoagulant therapy decreases the D-dimer levels and may generate false negative results Quantitative D-dimer performed on the [employer] [id number] analyzer. Cutoff value is 0.50 mg/L FEU in an attempt to obtain a negative predictive value close to 100 percent. (for DVT and PE). Non-VTE causes of elevated D-dimer include: trauma, DC, stroke, sepsis, DIC, active collagen diseases, post-surgery, cancer, thrombolytic therapy, large hematoma, diabetes, and post-. Clinical data and imaging studies may be used in order to confirm a positive D-dimer test. The above D-dimer assay may be used for DIC screening in conjunction with other coagulation procedures (PT, PTT, fibrinogen and platelet count). Pathology consultation is available. 06-16-16 Performed By: #### D ANDREAE #### [address] [address] MAGNESIUMon 06-25-2018 Magnesium mass conc 1.4 mg/dL Low 1.7-2.2 [facility] Comment on above: Order Comment: RADHA Lauren ER 06/25/2018, 15:09, KJD, Called with verbal read back by Romeo Castillo. Performed By: #### M AG #### [address] [address] UA COMPLETE AND REFLEX TO CU LTUREon 06-25-2018 BACTERIA 4+ /hpf Abnormal NONE [facility] Comment on above: Performed By: #### U RINR #### [address] [address] HYALINE CASTS NONE Normal NONE [facility] Comment on above: Performed By: #### U RINR #### [address] [address] RBC - URINE 7 /hpf High 0-2 [facility] Comment on above: Performed By: #### U RINR #### [address] [address] URINE EPITHELIAL CELLS 1 /hpf Normal 0-5 [facility] Comment on above: Performed By: #### U RINR #### [address] [address] URINE REFLEX CASTS NORMAL Normal [facility] Comment on above: Performed By: #### U RINR #### [address] [address] URINE REFLEX CELLS NORMAL Normal [facility] Comment on above: Performed By: #### U RINR #### [address] [address] URINE REFLEX CRYSTALS NORMAL Normal [facility] Comment on above: Performed By: #### U RINR #### [address] [address] URINE REFLEX YEAST NORMAL Normal [facility] Comment on above: Performed By: #### U RINR #### [address] [address] WBC - URINE 92 /hpf High 0-5 [facility] Comment on above: Performed By: #### U RINR #### [address] [address] Bilirubin.direct mass conc Negative Normal NEGATIVE [facility] Comment on above: Performed By: #### U RINR #### [address] [address] BLOOD Negative Normal NEGATIVE [facility] Comment on above: Performed By: #### U RINR #### [address] [address] Color Nom (U) LIGHT YELLOW Normal [facility] Comment on above: Performed By: #### U RINR #### [address] [address] Glucose Ql (U) >2000 Abnormal NEGATIVE [facility] Comment on above: Performed By: #### U RINR #### [address] [address] Ketones Ql (U) Negative Normal NEGATIVE [facility] Comment on above: Performed By: #### U RINR #### [address] [address] Leukocyte esterase Test strip Ql (U) MODERATE Abnormal NEGATIVE [facility] Comment on above: Performed By: #### U RINR #### [address] [address] NITRITES URINE 2+ mg/dL Abnormal NEGATIVE [facility] Comment on above: Performed By: #### U RINR #### [address] [address] pH (U) 5.5 [pH] Normal 6.0-8.5 [facility] Comment on above: Performed By: #### U RINR #### [address] [address] Protein mass conc (U) Negative Normal NEG/TRACE [facility] Comment on above: Performed By: #### U RINR #### [address] [address] Specific gravity Relative Density (U) 1.033 Normal 1.010 - 1.030 [facility] Comment on above: Performed By: #### U RINR #### [address] [address] TURBIDITY CLEAR Normal [facility] Comment on above: Performed By: #### U RINR #### [address] [address] UROBILINOGEN URINE 0.2 mg/dL Normal <2.0 [facility] Comment on above: Performed By: #### U RINR #### [address] [address] METHOD OF COLLECTING URINE Not stated Normal [facility] Comment on above: Performed By: #### U RINR #### [facility] [address] [place] [address] XR-Chest Xray - Portable One Viewon 06-25-2018 [...] 2017 Acetaminophen mass conc Negative Normal NEG [facility] Comment on above: Performed By: #### C DP, BMP, BNP, TROPI, DIME, PT, PTT ####[address] [place] [address] Bilirubin (direct) Negative Normal NEG [facility] Comment on above: Performed By: #### C DP, BMP, BNP, TROPI, DIME, PT, PTT ####[address] [place] [address] Hemoglobin mass conc (Bld) Negative Normal NEG [facility] Comment on above: Performed By: #### C DP, BMP, BNP, TROPI, DIME, PT, PTT ####[address] [place] [address] Nitrite,Ur Positive Abnormal NEG [facility] Comment on above: Performed By: #### C DP, BMP, BNP, TROPI, DIME, PT, PTT ####[address] [place] [address] Turbidity SLIGHTLY CLOUDY Abnormal CLEAR [facility] Comment on above: Performed By: #### C DP, BMP, BNP, TROPI, DIME, PT, PTT ####[address] [place] [address] Urine, color YELLOW Normal YEL [facility] Comment on above: Performed By: #### C DP, BMP, BNP, TROPI, DIME, PT, PTT ####[address] [place] [address] Urine, glucose presence 3+ Abnormal NEG [facility] Comment on above: Performed By: #### C DP, BMP, BNP, TROPI, DIME, PT, PTT ####[address] [place] [address] Urine, leukocyte esterase presence Negative Normal NEG [facility] Comment on above: Result Comment: Perf ormed at [address] [place] [address] Performed By: #### C DP, BMP, BNP, TROPI, DIME, PT, PTT ####[address] [place] [address] Urine, pH 5.5 [pH] Normal 5.0-9.0 [facility] Comment on above: Performed By: #### C DP, BMP, BNP, TROPI, DIME, PT, PTT ####[address] [place] [address] Urine, protein presence Negative Normal NEG [facility] Comment on above: Performed By: #### C DP, BMP, BNP, TROPI, DIME, PT, PTT ####[address] [place] [address] Urine, specific gravity 1.020 Normal 1.010-1.020 [facility] Comment on above: Performed By: #### C DP, BMP, BNP, TROPI, DIME, PT, PTT ####[address] [place] [address] Urobilinogen,Ur Normal Normal NORM [facility] Comment on above: Performed By: #### C DP, BMP, BNP, TROPI, DIME, PT, PTT ####[address] [place] [address] Urinalysis,Microon 8 ----- Normal [facility] Comment on above: Performed By: #### C DP, BMP, BNP, TROPI, DIME, PT, PTT ####[address] [place] [address] Urine WBC's 10 TO 20 Normal 0-5 [facility] Comment on above: Performed By: #### C DP, BMP, BNP, TROPI, DIME, PT, PTT ####[address] [place] [address] Urine, bacteria in sediment 3+ Abnormal NONE [facility] Comment on above: Result Comment: Perf ormed at [address] [place] [address] Performed By: #### C DP, BMP, BNP, TROPI, DIME, PT, PTT ####[address] [place] [address] Urine, epithelial cells in sediment 0 TO 2 Normal 0-25 [facility] Comment on above: Performed By: #### C DP, BMP, BNP, TROPI, DIME, PT, PTT ####[address] [place] [address] Urine, erythrocytes 0 TO 2 Normal 0-2 [facility] Comment on above: Performed By: #### C DP, BMP, BNP, TROPI, DIME, PT, PTT ####[address] [place] [address] Basic Metabolic Profon 09-01 (cont.) Normal [facility] Comment on above: Result Comment: Aver age GFR for 40-49 years old: 99 mL/min/1.73sq mChronic Kidney Disease: <60 mL/min/1.73sq mKidney failure: <15 mL/min/1.73sq meGFR calculated using average adult body mass. Additional eGFR calculator available at:http://www.[employer]/multiple_crcl_2012.htm Performed By: #### C DP, BMP, BNP, TROPI, DIME, PT, PTT ####[address] [place] [address] Anion gap 18 mmol/L High 9-17 [facility] Comment on above: Performed By: #### C DP, BMP, BNP, TROPI, DIME, PT, PTT ####[address] [place] [address] BUN/CRE Ratio 12 Normal 9-20 [facility] Comment on above: Performed By: #### C DP, BMP, BNP, TROPI, DIME, PT, PTT ####[address] [place] [address] Calcium 7.9 mg/dL Low 8.6-10.4 [facility] Comment on above: Performed By: #### C DP, BMP, BNP, TROPI, DIME, PT, PTT ####[address] [place] [address] Chloride 101 mmol/L Normal 98-107 [facility] Comment on above: Performed By: #### C DP, BMP, BNP, TROPI, DIME, PT, PTT ####[address] [place] [address] CO2 20 mmol/L Normal 20-31 [facility] Comment on above: Performed By: #### C DP, BMP, BNP, TROPI, DIME, PT, PTT ####[address] [place] [address] Creatinine 0.60 mg/dL Normal 0.50-0.90 [facility] Comment on above: Performed By: #### C DP, BMP, BNP, TROPI, DIME, PT, PTT ####[address] [place] [address] eGFR (non-black) mL/min/{1.73_m2} Normal >60 [facility] Comment on above: Performed By: #### C DP, BMP, BNP, TROPI, DIME, PT, PTT ####[address] [place] [address] Glucose mass conc 297 mg/dL High 70-99 [facility] Comment on above: Performed By: #### C DP, BMP, BNP, TROPI, DIME, PT, PTT ####[address] [place] [address] Potassium molar conc 3.3 mmol/L Low 3.7-5.3 [facility] Comment on above: Performed By: #### C DP, BMP, BNP, TROPI, DIME, PT, PTT ####[address] [place] [address] Sodium 139 mmol/L Normal 135-144 [facility] Comment on above: Performed By: #### C DP, BMP, BNP, TROPI, DIME, PT, PTT ####[address] [place] [address] Staging: Normal [facility] Comment on above: Result Comment: Stag e 1: Some kidney damage normal GFRStage 2: Mild kidney damage GFR 60-89Stage 3: Moderate kidney damage GFR 30-59Stage 4: Severe kidney damage GFR 15-29Stage 5: Severe kidney damage GFR <15ESRD - chronic treatment by dialysis or transplantPerformed at [address] [place] [address] Performed By: #### C DP, BMP, BNP, TROPI, DIME, PT, PTT ####[address] [place] [address] Urea nitrogen 7 mg/dL Normal 6-20 [facility] Comment on above: Performed By: #### C DP, BMP, BNP, TROPI, DIME, PT, PTT ####[address] [place] [address] Glucose mass conc 447 mg/dL Critically high 70-99 [facility] Comment on above: Performed By: #### C DP, BMP, BNP, TROPI, DIME, PT, PTT ####[address] [place] [address] (cont.) Normal [facility] Comment on above: Result Comment: Aver age GFR for 40-49 years old: 99 mL/min/1.73sq mChronic Kidney Disease: <60 mL/min/1.73sq mKidney failure: <15 mL/min/1.73sq meGFR calculated using average adult body mass. Additional eGFR calculator available at:http://www.[employer]/multiple_crcl_2012.htm Performed By: #### C DP, BMP, BNP, TROPI, DIME, PT, PTT ####[address] [place] [address] Anion gap 21 mmol/L High 9-17 [facility] Comment on above: Performed By: #### C DP, BMP, BNP, TROPI, DIME, PT, PTT ####[address] [place] [address] BUN/CRE Ratio 15 Normal 9-20 [facility] Comment on above: Performed By: #### C DP, BMP, BNP, TROPI, DIME, PT, PTT ####[address] [place] [address] Calcium 9.4 mg/dL Normal 8.6-10.4 [facility] Comment on above: Performed By: #### C DP, BMP, BNP, TROPI, DIME, PT, PTT ####[address] [place] [address] Chloride 94 mmol/L Low 98-107 [facility] Comment on above: Performed By: #### C DP, BMP, BNP, TROPI, DIME, PT, PTT ####[address] [place] [address] CO2 20 mmol/L Normal 20-31 [facility] Comment on above: Performed By: #### C DP, BMP, BNP, TROPI, DIME, PT, PTT ####[address] [place] [address] Creatinine 0.62 mg/dL Normal 0.50-0.90 [facility] Comment on above: Performed By: #### C DP, BMP, BNP, TROPI, DIME, PT, PTT ####[address] [place] [address] eGFR (non-black) mL/min/{1.73_m2} Normal >60 [facility] Comment on above: Performed By: #### C DP, BMP, BNP, TROPI, DIME, PT, PTT ####[address] [place] [address] Potassium molar conc 3.5 mmol/L Low 3.7-5.3 [facility] Comment on above: Performed By: #### C DP, BMP, BNP, TROPI, DIME, PT, PTT ####[address] [place] [address] Sodium 135 mmol/L Normal 135-144 [facility] Comment on above: Performed By: #### C DP, BMP, BNP, TROPI, DIME, PT, PTT ####[address] [place] [address] Staging: Normal [facility] Comment on above: Result Comment: Stag e 1: Some kidney damage normal GFRStage 2: Mild kidney damage GFR 60-89Stage 3: Moderate kidney damage GFR 30-59Stage 4: Severe kidney damage GFR 15-29Stage 5: Severe kidney damage GFR <15ESRD - chronic treatment by dialysis or transplantPerformed at [address] [place] [address] Performed By: #### C DP, BMP, BNP, TROPI, DIME, PT, PTT ####[address] [place] [address] Urea nitrogen 9 mg/dL Normal 6-20 [facility] Comment on above: Performed By: #### C DP, BMP, BNP, TROPI, DIME, PT, PTT ####[address] [place] [address] Beta Hydroxybutyrateon 09-01 Beta Hydroxybutyrate 0.74 mmol/L High 0.02-0.[address] [facility] Comment on above: Result Comment: Perf ormed at [address] [place] [address] Performed By: #### C DP, BMP, BNP, TROPI, DIME, PT, PTT ####[address] [place] [address] CBCon 09-01-2017 Erythrocyte distribution width Auto Ratio (RBC) 12.6 % Normal 11.8-14.4 [facility] Comment on above: Performed By: #### C DP, BMP, BNP, TROPI, DIME, PT, PTT ####[address] [place] [address] Erythrocytes (RBC) 4.39 10*6/uL Normal 3.95-5.11 [facility] Comment on above: Performed By: #### C DP, BMP, BNP, TROPI, DIME, PT, PTT ####[address] [place] [address] Erythrocytes (RBC) 0.0 per 100 WBC Normal 0.0 [facility] Comment on above: Result Comment: Perf ormed at [facility] [address] [facility], [place] [id number] ([phone] Performed By: #### C DP, BMP, BNP, TROPI, DIME, PT, PTT ####[address] [place] [address] Hematocrit (HCT) 39.2 % Normal 36.3-47.1 [facility] Comment on above: Performed By: #### C DP, BMP, BNP, TROPI, DIME, PT, PTT ####[address] [place] [address] Hemoglobin mass conc (Bld) 13.7 g/dL Normal 11.9-15.1 [facility] Comment on above: Performed By: #### C DP, BMP, BNP, TROPI, DIME, PT, PTT ####[address] [place] [address] MCH 31.2 pg Normal 25.2-33.5 [facility] Comment on above: Performed By: #### C DP, BMP, BNP, TROPI, DIME, PT, PTT ####[address] [place] [address] MCHC mass conc (RBC) 34.9 g/dL High 28.4-34.8 [facility] Comment on above: Performed By: #### C DP, BMP, BNP, TROPI, DIME, PT, PTT ####[address] [place] [address] MCV 89.3 fL Normal 82.6-102.9 [facility] Comment on above: Performed By: #### C DP, BMP, BNP, TROPI, DIME, PT, PTT ####[address] [place] [address] Platelet mean volume (PMV) 9.3 fL Normal 8.1-13.5 [facility] Comment on above: Performed By: #### C DP, BMP, BNP, TROPI, DIME, PT, PTT ####[address] , [place] [address] Platelets 317 10*3/uL Normal 138-453 [facility] Comment on above: Performed By: #### C DP, BMP, BNP, TROPI, DIME, PT, PTT ####[address] [place] [address] WBC (Leukocytes) 9.0 10*3/uL Normal 3.5-11.3 [facility] Comment on above: Performed By: #### C DP, BMP, BNP, TROPI, DIME, PT, PTT ####[address] [place] [address] D-Dimer Teston 09-01-2017 D-Dimer Test 0.23 mg/L FEU Normal 0.19-0.50 [facility] Comment on above: Result Comment: [...] PE (negative predictive value of 98%).Performed at [address] [place] [address] [phone] Performed By: #### C DP, BMP, BNP, TROPI, DIME, PT, PTT ####[address] [place] [address] ED Provider Noteon 8 HIM IP Note OR Financial Management Normal [facility] Lithiumon 09-01-2017 [place] 0.8 mmol/L Normal 0.6-1.2 [facility] Comment on above: Result Comment: Perf ormed at [address] [place] [address] [phone] Performed By: #### C DP, BMP, BNP, TROPI, DIME, PT, PTT ####[address] [place] [address] Date last dose, NOT REPORTED Normal [facility] Comment on above: Performed By: #### C DP, BMP, BNP, TROPI, DIME, PT, PTT ####[address] [place] [address] Dose amount, NOT REPORTED Normal [facility] Comment on above: Performed By: #### C DP, BMP, BNP, TROPI, DIME, PT, PTT ####[address] [place] [address] Time last dose, NOT REPORTED Normal [facility] Comment on above: Performed By: #### C DP, BMP, BNP, TROPI, DIME, PT, PTT ####[address] [place] [address] Magnesiumon 09-01-2017 Magnesium 1.5 mg/dL Low 1.6-2.6 [facility] Comment on above: Result Comment: Perf ormed at [address] [place] [address] Performed By: #### C DP, BMP, BNP, TROPI, DIME, PT, PTT ####[address] [place] [address] Troponinon 09-01-2017 Troponin I.cardiac mass conc Normal [facility] Comment on above: Result Comment: Refe rence Range: <0.03 Within reference range. 0.03-0.09 Possible myocardial damage.Repeat at appropriate intervals to rule out chronic elevation. >= 0.10 Indicative of myocardial damage.Patients with high levels of Biotin oral intake (i.e >5mg/day) may have falsely decreased Troponin T levels. Samples collected within 8 hours of biotin intake may require additional information for diagnosis.Performed at [address] [place] [address] Performed By: #### C DP, BMP, BNP, TROPI, DIME, PT, PTT ####[address] [place] [address] Troponin T.cardiac mass conc ug/L Normal <0.03 [facility] Comment on above: Result Comment: Trop onin T results cannot be compared to Troponin-I results. Performed By: #### C DP, BMP, BNP, TROPI, DIME, PT, PTT ####[address] [place] [address] Urinalysis, Routineon 2017 Comment NOT REPORTED Normal [facility] Comment on above: Performed By: #### C DP, BMP, BNP, TROPI, DIME, PT, PTT ####[address] [place] [address] Urinalysis,Microon 8 Epithelial, Renal NOT REPORTED Normal 0 [facility] Comment on above: Performed By: #### C DP, BMP, BNP, TROPI, DIME, PT, PTT ####[address] [place] [address] Mucus Strands NOT REPORTED Normal NONE [facility] Comment on above: Performed By: #### C DP, BMP, BNP, TROPI, DIME, PT, PTT ####[address] [place] [address] Other Observations NOT REPORTED [facility] on above: Performed By: #### C DP, BMP, BNP, TROPI, DIME, PT, PTT ####[address] [place] [address] Trichomonas NOT REPORTED Normal NONE [facility] Comment on above: Performed By: #### C DP, BMP, BNP, TROPI, DIME, PT, PTT ####[address] [place] [address] Urine, amorphous sediment presence in sediment NOT REPORTED Normal NONE [facility] Comment on above: Performed By: #### C DP, BMP, BNP, TROPI, DIME, PT, PTT ####[address] [place] [address] Urine, casts in sediment NOT REPORTED Normal [facility] Comment on above: Performed By: #### C DP, BMP, BNP, TROPI, DIME, PT, PTT ####[address] [place] [address] Urine, crystals in sediment NOT REPORTED Normal [facility] Comment on above: Performed By: #### C DP, BMP, BNP, TROPI, DIME, PT, PTT ####[address] , [facility] Urine, yeast presence in sediment NOT REPORTED Normal [facility] Comment on above: Performed By: #### C DP, BMP, BNP, TROPI, DIME, PT, PTT ####[address] [place] [address] Venous Blood Gaseson 04--2 018 Bicarbonate (HCO3) 21.2 mmol/L Low 24.0-30.0 [facility] Comment on above: Performed By: #### C DP, BMP, BNP, TROPI, DIME, PT, PTT ####[address] [place] [address] Body Temp. 37.0 Normal [facility] Comment on above: Result Comment: Perf ormed at [address] [place] [address] Performed By: #### C DP, BMP, BNP, TROPI, DIME, PT, PTT ####[address] [place] [address] CO2 35.0 mmol/L Low 39-55 [facility] Comment on above: Performed By: #### C DP, BMP, BNP, TROPI, DIME, PT, PTT ####[address] [place] [address] Negative Base Excess 2.8 mmol/L High 0.0-2.0 [facility] Comment on above: Performed By: #### C DP, BMP, BNP, TROPI, DIME, PT, PTT ####[address] [place] [address] O2 saturation 67.0 % Normal 60.0-85.0 [facility] Comment on above: Performed By: #### C DP, BMP, BNP, TROPI, DIME, PT, PTT ####[address] [place] [address] Oxygen in arterial blood 34.6 mm[Hg] Normal 30.0-50.0 [facility] Comment on above: Performed By: #### C DP, BMP, BNP, TROPI, DIME, PT, PTT ####[address] [place] [address] pH of blood 7.400 [pH] Normal 7.32-7.42 [facility] Comment on above: Performed By: #### C DP, BMP, BNP, TROPI, DIME, PT, PTT ####[address] [place] [address] Chuckie Test NOT REPORTED Normal [facility] Comment on above: Performed By: #### C DP, BMP, BNP, TROPI, DIME, PT, PTT ####[address] [place] [address] CO2 NOT REPORTED Normal 39.0-55.0 [facility] Comment on above: Performed By: #### C DP, BMP, BNP, TROPI, DIME, PT, PTT ####[address] [place] [address] FIO2 NOT REPORTED Normal [facility] Comment on above: Performed By: #### C DP, BMP, BNP, TROPI, DIME, PT, PTT ####[address] [place] [address] Hemoglobin mass conc (Bld) NOT REPORTED Normal 95.0-98.0 [facility] Comment on above: Performed By: #### C DP, BMP, BNP, TROPI, DIME, PT, PTT ####[address] [place] [address] Mode NOT REPORTED Normal [facility] Comment on above: Performed By: #### C DP, BMP, BNP, TROPI, DIME, PT, PTT ####[address] [place] [address] Notification Time NOT REPORTED Normal [facility] Comment on above: Performed By: #### C DP, BMP, BNP, TROPI, DIME, PT, PTT ####[address] [place] [address] Notification: NOT REPORTED Normal [facility] Comment on above: Performed By: #### C DP, BMP, BNP, TROPI, DIME, PT, PTT ####[address] [place] [address] O2 Device/Flow/% NOT REPORTED Normal [facility] Comment on above: Performed By: #### C DP, BMP, BNP, TROPI, DIME, PT, PTT ####[address] , [place] [address] PEEP/CPAP NOT REPORTED Normal [facility] Comment on above: Performed By: #### C DP, BMP, BNP, TROPI, DIME, PT, PTT ####[address] [place] [address] pH Adjst'd for Temp. NOT REPORTED Normal 7.320-7.420 M [facility] Comment on above: Performed By: #### C DP, BMP, BNP, TROPI, DIME, PT, PTT ####[address] [place] [address] pO2 Adj'd for Temp. NOT REPORTED Normal 30.0-50.[address] [facility] Comment on above: Performed By: #### C DP, BMP, BNP, TROPI, DIME, PT, PTT ####[address] [place] [address] Positive Base Excess NOT REPORTED Normal 0.0-2.0 [facility] Comment on above: Performed By: #### C DP, BMP, BNP, TROPI, DIME, PT, PTT ####[address] [place] [address] PSV NOT REPORTED Normal [facility] Comment on above: Performed By: #### C DP, BMP, BNP, TROPI, DIME, PT, PTT ####[address] , [place] [address] Pt. Position NOT REPORTED Normal [facility] in Hospital Comment on above: Performed By: #### C DP, BMP, BNP, TROPI, DIME, PT, PTT ####[address] [place] [address] Respiratory rate NOT REPORTED Normal [facility] Comment on above: Performed By: #### C DP, BMP, BNP, TROPI, DIME, PT, PTT ####[address] [place] [address] Set Rate NOT REPORTED Normal [facility] Comment on above: Performed By: #### C DP, BMP, BNP, TROPI, DIME, PT, PTT ####[address] [place] [address] Site Drawn NOT REPORTED Normal [facility] Comment on above: Performed By: #### C DP, BMP, BNP, TROPI, DIME, PT, PTT ####[address] [place] [address] Text for Respiratory NOT REPORTED Normal [facility] Comment on above: Performed By: #### C DP, BMP, BNP, TROPI, DIME, PT, PTT ####[address] [place] [address] Total Hb NOT REPORTED Normal 12.0-16.0 [facility] Comment on above: Performed By: #### C DP, BMP, BNP, TROPI, DIME, PT, PTT ####[address] [place] [address] Total Rate NOT REPORTED Normal [facility] Comment on above: Performed By: #### C DP, BMP, BNP, TROPI, DIME, PT, PTT ####[address] [place] [address] [place] NOT REPORTED Normal [facility] Comment on above: Performed By: #### C DP, BMP, BNP, TROPI, DIME, PT, PTT ####[address] [place] [address] XR CHEST (2 VW)on 09-01-2017 XR CHEST (2 VW) FINAL REPORTEXAM: XR CHEST (2 VW)HISTORY: shortness of breath TECHNIQUE: Two-view chest PRIORS: None.FINDINGS: Lung marquez are clear. No consolidation, pleural effusion, or pneumothorax. Cardio mediastinal silhouette is unremarkable. Chest port and pacer noted. IMPRESSION: Impression: No acute disease. Interpreted by:LUIS Dykesigned by:Ko Lua MD09/01/17inal result Normal [facility] PROGRESSon 07-17-2017 PROGRESS HNO ID: [id number] thor: Ben Ricoervice: (none)Author Type: PhysicianType: Progress NotesFiled: 07/17/2017 10:07 AMNote Text:[facility] InstituteMajestic and [facility] Department of Cardiovascular MedicineOUTPATIENT VISIT DATE 07/17/17OUTPATIENT VISIT TYPENEWPRIMARY CARE PHYSICIAN:Cem Mario, [id number] [facility] [place] [address]Wgfuy: [phone]: [phone] COMPLAINT:Patient presents with:Cardiac ClearanceHISTORY OF PRESENT ILLNESS:Addie Jean Baptiste is a 42 year old female with a 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 The patient is facingankle surgery in the near future. The patient is usually seen at [facility] cardiology practice. She states that she [...] follow-up checkup in the near future in [place]. The patient hasnot had any problems with [...] 251-300 = 6 units 301-350 = 8 bfqes411-105 = 10 unitsinsulin lispro (HUMALOG) 100 unit/mL [...] kg (196 lb) SpO2 96% BMI 35.85 kg/e2Ttdnrjt: Well appearing, in no acute distress.Eyes: Conjunctiva [...] There there is no evidence of previous DC.I have personally reviewed the above Cardiovascular Medicine [...] first checkup of recently changed generator at [facility].4. Controlled type 2 diabetes mellitus without complication, [...] diet.Follow-up with her primary cardiology provider at [facility] aspreviously directed.A copy of this consultation note will be provided to the requestingphysician by way of shared medical record or to the requesting physicianvia U.S. Mail.This document was generated utilizing [employer]. I have reviewedand verified that the contents of the document are accurate with theexception of minor grammatical, spelling and punctuation errors.CONTACT INFORMATION:Thank you for allowing us to participate in the care of this very pleasantpatient. Please free to contact us if we can be of any furtherassistance.Ben De Jesus MD, FACCRobert and Pretty ZeeGreat River Medical Center of Cardiovascular MedicineMer[facility] Hospitalrt [facility]ascular Institute[address] [place], [place] [address]Rqwbut: [phone] Normal [facility] XR Lumbar Spine 2-3 Views (S tandard)on 06-26-2017 XR Lumbar Spine 2-3 Views (Standard) No acute osseous abnormality. If symptoms persist, further evaluation with MRI would be recommended. [place] Workstation ID: [id number] Invalid Interpretation Code [facility] XR Lumbar Spine 2-3 Views (Standard) EXAMINATION: XR LUMBAR SPINE 2-3 VIEWS (STANDARD) HISTORY: ORDERING SYSTEM PROVIDED HISTORY: back pain, TECHNOLOGIST PROVIDED HISTORY: Reason for exam: Pt states she was at [employer] and then upon leaving went to get [...] Lumbar radiographs 01/30/2014. FINDINGS: There are 5 rov-kdx-obkoupy lumbar-type vertebral bodies in anatomic alignment. Mineralization is within normal limits. No acute fracture or dislocation. The sacroiliac joint spaces are unremarkable. Surgical clips are seen within the right upper quadrant of the abdomen. Invalid Interpretation Code [facility] XR Lumbar Spine 2-3 Views (Standard) [...] Lumbar radiographs 01/30/2014. FINDINGS: There are 5 twk-gty-qpcpfto lumbar-type vertebral bodies in anatomic alignment. Mineralization is within normal limits. No acute fracture or dislocation. The sacroiliac joint spaces are unremarkable. Surgical clips are seen within the right upper quadrant of the abdomen. IMPRESSION: No acute osseous abnormality. If symptoms persist, further evaluation with MRI would be recommended. [place]/[employer] Workstation ID: [id number] Invalid Interpretation Code [employer] [facility] XR Thoracic Spine 3 Views (S tandard)on 06-26-2017 XR Thoracic Spine 3 Views (Standard) No acute bony abnormalities. [facility] Workstation ID: [id number] Invalid Interpretation Code [employer] XR Thoracic Spine 3 Views (Standard) EXAMINATION: XR THORACIC SPINE 3 VIEWS (STANDARD) HISTORY: ORDERING SYSTEM PROVIDED HISTORY: back pain, TECHNOLOGIST PROVIDED HISTORY: Reason for exam: Pt states she was at [employer] eating and then upon leaving went to [...] acute fractures or dislocations. Invalid Interpretation Code [employer] [place] XR Thoracic Spine 3 Views (Standard) Interface, Rad In [employer] - 06/26/2017 9:04 PM EST EXAMINATION: XR THORACIC SPINE 3 VIEWS (STANDARD) HISTORY: ORDERING SYSTEM PROVIDED HISTORY: back pain, TECHNOLOGIST PROVIDED HISTORY: Reason for exam: Pt states she was at [employer] eating and then upon leaving went to [...] or dislocations. IMPRESSION: No acute bony abnormalities. [employer] Workstation ID: [id number] Invalid Interpretation Code [facility] Cult,Urineon 02-17-2017 Cult,Urine Specimen Description .URINE Performed at [address] [place] [address] ([phone] Special Requests NOT REPORTEDCulture ESCHERICHIA COLI >[id number] CFU/ML Performed at [address] [id number] ([phone] Report Status FINAL 02/17/2017SUSCEPTIBILITYO rganism ECMethod MICAmikacin [...] SUSCEPTIBLETrimethoprim/S ulfa >=320 RESISTANTPiperacillin/Louis obactam <=4 SUSCEPTIBLE Normal [facility] Comment on above: Performed By: #### C DP, BMP, BNP, TROPI, DIME, PT, PTT ####[address] [place] [address] APTTon 02-16-2017 aPTT 23.1 s Low 23.2-34.4 [facility] Comment on above: Result Comment: Perf ormed at [address] [place], [place] [address] [phone] Performed By: #### C DP, BMP, BNP, TROPI, DIME, PT, PTT ####[address] , [place] [address] Basic Metabolic Profon 02-16 (cont.) Normal [facility] Comment on above: Result Comment: Aver age GFR for 30-39 years old: 107 mL/min/1.73sq mChronic Kidney Disease: <60 mL/min/1.73sq mKidney failure: <15 mL/min/1.73sq meGFR calculated using average adult body mass. Additional eGFR calculator available at:http://[email or web address]/multiple_crcl_2012.htm Performed By: #### C DP, BMP, BNP, TROPI, DIME, PT, PTT ####[address] [place] [address] Anion gap 20 mmol/L High - [facility] Comment on above: Performed By: #### C DP, BMP, BNP, TROPI, DIME, PT, PTT ####[address] [place] [address] BUN/CRE Ratio 11 Normal - [facility] Comment on above: Performed By: #### C DP, BMP, BNP, TROPI, DIME, PT, PTT ####[address] [place] [address] Calcium 9.7 mg/dL Normal 8.6-10.4 [facility] Comment on above: Performed By: #### C DP, BMP, BNP, TROPI, DIME, PT, PTT ####[address] [place] [address] Chloride 94 mmol/L Low 98-107 [facility] Comment on above: Performed By: #### C DP, BMP, BNP, TROPI, DIME, PT, PTT ####[address] , [facility]83 CO2 20 mmol/L Normal 20-31 [facility] Comment on above: Performed By: #### C DP, BMP, BNP, TROPI, DIME, PT, PTT ####[address] [place] [address] Creatinine 0.71 mg/dL Normal 0.50-0.90 [facility] Comment on above: Performed By: #### C DP, BMP, BNP, TROPI, DIME, PT, PTT ####[address] [place] [address] eGFR (non-black) mL/min/{1.73_m2} Normal >60 [facility] Comment on above: Performed By: #### C DP, BMP, BNP, TROPI, DIME, PT, PTT ####[address] [place] [address] Glucose mass conc 396 mg/dL High 70-99 [facility] Comment on above: Performed By: #### C DP, BMP, BNP, TROPI, DIME, PT, PTT ####[address] [place] [address] Potassium molar conc 4.3 mmol/L Normal 3.7-5.3 [facility] Comment on above: Performed By: #### C DP, BMP, BNP, TROPI, DIME, PT, PTT ####[address] , [place] [address] Sodium 134 mmol/L Low 135-144 [facility] Comment on above: Performed By: #### C DP, BMP, BNP, TROPI, DIME, PT, PTT ####[address] [place] [address] Staging: Normal [facility] Comment on above: Result Comment: Stag e 1: Some kidney damage normal GFRStage 2: Mild kidney damage GFR 60-89Stage 3: Moderate kidney damage GFR 30-59Stage 4: Severe kidney damage GFR 15-29Stage 5: Severe kidney damage GFR <15ESRD - chronic treatment by dialysis or transplantPerformed at [address] [place] [address] Performed By: #### C DP, BMP, BNP, TROPI, DIME, PT, PTT ####[address] [place] [address] Urea nitrogen 8 mg/dL Normal 6-20 [facility] Comment on above: Performed By: #### C DP, BMP, BNP, TROPI, DIME, PT, PTT ####[address] [place] [address] Brain Natri. Peptideon 02-16 BNP Normal [facility] Comment on above: Result Comment: Pro- BNP Reference Range:Rule Out: <300Grey Zone: Age <50 300-450 Age 50-75 300-900 Age >75 300-1800Usually represents mild to moderate HF but other cardiopulmonary causes cannot be ruled out.Rule In: Age <50 >450 Age 50-75 >900 Age >75 >1800Performed at [address] [place] [address] Performed By: #### C DP, BMP, BNP, TROPI, DIME, PT, PTT ####[address] [place] [address] BNP 117 pg/mL Normal <300 [facility] Comment on above: Result Comment: Pro- BNP results cannot be compared to BNP results. Performed By: #### C DP, BMP, BNP, TROPI, DIME, PT, PTT ####[address] , [place] [address] CBC with Diffon 02-16-2017 Abs. Basophil 0.00 k/uL Normal 0.0-0.2 [facility] Comment on above: Result Comment: Perf ormed at [address] [place], [place] [address] Performed By: #### C DP, BMP, BNP, TROPI, DIME, PT, PTT ####[address] , [place] [address] Abs.Neutrophil (Seg) 8.70 k/uL High 1.8-7.7 [facility] Comment on above: Performed By: #### C DP, BMP, BNP, TROPI, DIME, PT, PTT ####[address] , [place] [address] Basophils/100 WBC Auto (Bld) 0 % Normal [facility] Comment on above: Performed By: #### C DP, BMP, BNP, TROPI, DIME, PT, PTT ####[address] , [facility]83 Eosinophils 0.10 10*3/uL Normal 0.0-0.4 [facility] Comment on above: Performed By: #### C DP, BMP, BNP, TROPI, DIME, PT, PTT ####[address] , [place] [address] Eosinophils/100 leukocytes 1 % Normal [facility] Comment on above: Performed By: #### C DP, BMP, BNP, TROPI, DIME, PT, PTT ####[address] , [facility]83 Erythrocyte distribution width Auto Ratio (RBC) 11.9 % Low 12.1-15.2 [facility] Comment on above: Performed By: #### C DP, BMP, BNP, TROPI, DIME, PT, PTT ####[address] , [place] [address] Erythrocytes (RBC) 5.01 10*6/uL Normal 4.0-5.2 [facility] Comment on above: Performed By: #### C DP, BMP, BNP, TROPI, DIME, PT, PTT ####[address] , [place] [address] Hematocrit (HCT) 45.2 % Normal 36-46 [facility] Comment on above: Performed By: #### C DP, BMP, BNP, TROPI, DIME, PT, PTT ####[address] , [place] [address] Hemoglobin mass conc (Bld) 15.5 g/dL Normal 12.0-16.0 [facility] Comment on above: Performed By: #### C DP, BMP, BNP, TROPI, DIME, PT, PTT ####[address] , [facility]83 Lymphocytes 2.00 10*3/uL Normal 1.0-4.8 [facility] Comment on above: Performed By: #### C DP, BMP, BNP, TROPI, DIME, PT, PTT ####[address] , [place] [address] Lymphocytes/100 leukocytes 18 % Normal [facility] Comment on above: Performed By: #### C DP, BMP, BNP, TROPI, DIME, PT, PTT ####[address] , [place] [address] MCH 31.0 pg Normal 26-34 [facility] Comment on above: Performed By: #### C DP, BMP, BNP, TROPI, DIME, PT, PTT ####[address] [place] [address] MCHC mass conc (RBC) 34.4 g/dL Normal 31-37 [facility] Comment on above: Performed By: #### C DP, BMP, BNP, TROPI, DIME, PT, PTT ####[address] , [place] [address] MCV 90.4 fL Normal 80-100 [facility] Comment on above: Performed By: #### C DP, BMP, BNP, TROPI, DIME, PT, PTT ####[address] , [place] [address] Monocytes 0.40 10*3/uL Normal 0.2-0.8 [facility] Comment on above: Performed By: #### C DP, BMP, BNP, TROPI, DIME, PT, PTT ####[address] , [place] [address] Monocytes/100 leukocytes 4 % Normal [facility] Comment on above: Performed By: #### C DP, BMP, BNP, TROPI, DIME, PT, PTT ####[address] , [place] [address] Neutrophil (Seg) 77 % Normal [facility] Comment on above: Performed By: #### C DP, BMP, BNP, TROPI, DIME, PT, PTT ####[address] , [place] [address] Platelet mean volume (PMV) 8.1 fL Normal 6.0-12.0 [facility] Comment on above: Performed By: #### C DP, BMP, BNP, TROPI, DIME, PT, PTT ####[address] , [place] [address] Platelets 340 10*3/uL Normal 140-450 [facility] Comment on above: Performed By: #### C DP, BMP, BNP, TROPI, DIME, PT, PTT ####[address] [place] [address] WBC (Leukocytes) 11.2 10*3/uL High 3.5-11.0 [facility] Comment on above: Performed By: #### C DP, BMP, BNP, TROPI, DIME, PT, PTT ####[address] [place] [address] Auto Diff Performed NOT REPORTED Normal [facility] Comment on above: Performed By: #### C DP, BMP, BNP, TROPI, DIME, PT, PTT ####[address] [place] [address] Erythrocyte morphology NOT REPORTED Normal [facility] Comment on above: Performed By: #### C DP, BMP, BNP, TROPI, DIME, PT, PTT ####[address] [place] [address] Platelets NOT REPORTED Normal [facility] Comment on above: Performed By: #### C DP, BMP, BNP, TROPI, DIME, PT, PTT ####[address] [place] [address] WBC Morphology NOT REPORTED Normal [facility] Comment on above: Performed By: #### C DP, BMP, BNP, TROPI, DIME, PT, PTT ####[address] [place] [address] D-Dimer Teston 02-16-2017 D-Dimer Test 0.26 mg/L FEU Normal 0.19-0.50 [facility] Comment on above: Result Comment: [...] PE (negative predictive value of 98%).Performed at [address] [place] [address] Performed By: #### C DP, BMP, BNP, TROPI, DIME, PT, PTT ####[address] , [place] [address] ED Noteon 02-16-2017 HIM IP Note OR Financial Management Normal [facility] HIM IP Note OR Financial Management Normal [facility] HIM IP Note OR Financial Management Normal [facility] HIM IP Note OR Financial Management Normal [facility] HIM IP Note OR Financial Management Normal [facility] HIM IP Note OR Financial Management Normal [facility] HIM IP Note OR Financial Management Normal [facility] HIM IP Note OR Financial Management Normal [facility] HIM IP Note OR Financial Management Normal [facility] HIM IP Note OR Financial Management Normal [facility] HIM IP Note OR Financial Management Normal [facility] ED Provider Noteon 7 HIM IP Note OR Financial Management Normal [facility] PTon 02-16-2017 INR Coag RelTime (PPP) 0.9 {INR} Normal 0.9-1.2 [facility] Comment on above: Result Comment: Perf ormed at [address] [place] [address] Performed By: #### C DP, BMP, BNP, TROPI, DIME, PT, PTT ####[address] [place] [address] Prothrombin time (PT) Coag time (PPP) 9.7 s Normal 9.7-12.2 [facility] Comment on above: Performed By: #### C DP, BMP, BNP, TROPI, DIME, PT, PTT ####[address] [place] [address] Troponinon 02-16-2017 Troponin I.cardiac mass conc Normal [facility] Comment on above: Result Comment: Refe rence Range: <0.03 Within reference range. 0.03-0.09 Possible myocardial damage.Repeat at appropriate intervals to rule out chronic elevation. >= 0.10 Indicative of myocardial damage.Performed at [address] [place] [address] Performed By: #### C DP, BMP, BNP, TROPI, DIME, PT, PTT ####[address] [place] [address] Troponin T.cardiac mass conc ug/L Normal <0.03 [facility] Comment on above: Result Comment: Trop onin T results cannot be compared to Troponin-I results. Performed By: #### C DP, BMP, BNP, TROPI, DIME, PT, PTT ####[address] [place] [address] Troponin I.cardiac mass conc Normal [facility] Comment on above: Result Comment: Refe rence Range: <0.03 Within reference range. 0.03-0.09 Possible myocardial damage.Repeat at appropriate intervals to rule out chronic elevation. >= 0.10 Indicative of myocardial damage.Performed at [address] [place] [address] Performed By: #### C DP, BMP, BNP, TROPI, DIME, PT, PTT ####[address] [place] [address] Troponin T.cardiac mass conc ug/L Normal <0.03 [facility] Comment on above: Result Comment: Trop onin T results cannot be compared to Troponin-I results. Performed By: #### C DP, BMP, BNP, TROPI, DIME, PT, PTT ####[address] [place] [address] UA w/Reflex Cultureon 2016 Acetaminophen mass conc 1+ Abnormal NEG [facility] Comment on above: Performed By: #### C DP, BMP, BNP, TROPI, DIME, PT, PTT ####[address] [place] [address] Bilirubin (direct) Negative Normal NEG [facility] Comment on above: Performed By: #### C DP, BMP, BNP, TROPI, DIME, PT, PTT ####[address] [place] [address] Hemoglobin mass conc (Bld) TRACE Abnormal NEG [facility] Comment on above: Performed By: #### C DP, BMP, BNP, TROPI, DIME, PT, PTT ####[address] [place] [address] Nitrite,Ur Positive Abnormal NEG [facility] Comment on above: Performed By: #### C DP, BMP, BNP, TROPI, DIME, PT, PTT ####[address] [place] [address] Turbidity SLIGHTLY CLOUDY Abnormal CLEAR [facility] Comment on above: Performed By: #### C DP, BMP, BNP, TROPI, DIME, PT, PTT ####[address] [place] [address] Urine, color YELLOW Normal YEL [facility] Comment on above: Performed By: #### C DP, BMP, BNP, TROPI, DIME, PT, PTT ####[address] [place] [address] Urine, glucose presence 3+ Abnormal NEG [facility] Comment on above: Performed By: #### C DP, BMP, BNP, TROPI, DIME, PT, PTT ####[address] [place] [address] Urine, leukocyte esterase presence TRACE Abnormal NEG [facility] Comment on above: Result Comment: Perf ormed at [address] [place] [address] Performed By: #### C DP, BMP, BNP, TROPI, DIME, PT, PTT ####[address] [place] [address] Urine, pH 7.0 [pH] Normal 5.0-9.0 [facility] Comment on above: Performed By: #### C DP, BMP, BNP, TROPI, DIME, PT, PTT ####[address] [place] [address] Urine, protein presence Negative Normal NEG [facility] Comment on above: Performed By: #### C DP, BMP, BNP, TROPI, DIME, PT, PTT ####[address] [place] [address] Urine, specific gravity 1.010 Normal 1.010-1.020 [facility] Comment on above: Performed By: #### C DP, BMP, BNP, TROPI, DIME, PT, PTT ####[address] [place] [address] Urobilinogen,Ur Normal Normal NORM [facility] Comment on above: Performed By: #### C DP, BMP, BNP, TROPI, DIME, PT, PTT ####[address] [place] [address] Comment NOT REPORTED Normal [facility] Comment on above: Performed By: #### C DP, BMP, BNP, TROPI, DIME, PT, PTT ####[address] [place] [address] Urinalysis,Microon 7 ----- Normal [facility] Comment on above: Performed By: #### C DP, BMP, BNP, TROPI, DIME, PT, PTT ####[address] [place] [address] Urine WBC's 10 TO 20 Normal 0-5 [facility] Comment on above: Performed By: #### C DP, BMP, BNP, TROPI, DIME, PT, PTT ####[address] [place] [address] Urine, bacteria in sediment 3+ Abnormal NONE [facility] Comment on above: Result Comment: Perf ormed at [address] [place] [address] Performed By: #### C DP, BMP, BNP, TROPI, DIME, PT, PTT ####[address] [place] [address] Urine, epithelial cells in sediment 2 TO 5 Normal 0-25 [facility] Comment on above: Performed By: #### C DP, BMP, BNP, TROPI, DIME, PT, PTT ####[address] [place] [address] Urine, erythrocytes 0 TO 2 Normal 0-2 [facility] Comment on above: Performed By: #### C DP, BMP, BNP, TROPI, DIME, PT, PTT ####[address] [place] [address] Epithelial, Renal NOT REPORTED Normal 0 [facility] Comment on above: Performed By: #### C DP, BMP, BNP, TROPI, DIME, PT, PTT ####[address] [place] [address] Mucus Strands NOT REPORTED Normal NONE [facility] Comment on above: Performed By: #### C DP, BMP, BNP, TROPI, DIME, PT, PTT ####[address] [place] [address] Other Observations NOT REPORTED [facility] Comment on above: Performed By: #### C DP, BMP, BNP, TROPI, DIME, PT, PTT ####[address] [place] [address] Trichomonas NOT REPORTED Normal NONE [facility] Comment on above: Performed By: #### C DP, BMP, BNP, TROPI, DIME, PT, PTT ####[address] [place] [address] Urine, amorphous sediment presence in sediment NOT REPORTED Normal NONE [facility] Comment on above: Performed By: #### C DP, BMP, BNP, TROPI, DIME, PT, PTT ####[address] [place] [address] Urine, casts in sediment NOT REPORTED Normal [facility] Comment on above: Performed By: #### C DP, BMP, BNP, TROPI, DIME, PT, PTT ####[address] [place] [address] Urine, crystals in sediment NOT REPORTED Normal NONE [facility] Comment on above: Performed By: #### C DP, BMP, BNP, TROPI, DIME, PT, PTT ####[address] [place] [address] Urine, yeast presence in sediment NOT REPORTED Normal [facility] Comment on above: Performed By: #### C DP, BMP, BNP, TROPI, DIME, PT, PTT ####[address] [place] [address] XR CHEST PORTABLEon 02-17-20 17 XR CHEST [...] by:LUIS Migueligned by:Stephany Villafana MD02/16/17Final result Normal [facility] Laboratory Studieson 017 Urine Drug Screen (T) Final [facility] Comment on above: ==== TOXASSURE COMP [...] Scanned copy available in EMR. Performed at: [employer] [address] [id number] Back Maker: Laura Damon MD, Phone: [phone] Vital Signs Date Time Vital Sign Value Performing Clinician Carol hansen 02-23-2025 13:51-0400 Body height 157.5 cm Mihai Lavonne [employer] Work Phone: [facility] 02-23-2025 13:51-0400 Body mass index (BMI) [Ratio] 51.21 kg/m2 Mihai Lavonne [employer] Work Phone: [facility] 02-23-2025 13:51-0400 Body weight 127.01 kg Mihai Lavonne [employer] Work Phone: [facility] 02-23-2025 13:51-0400 Diastolic blood pressure 100 mm[Hg] Mihai Lavonne [employer] Work Phone: [facility] 02-23-2025 13:51-0400 Heart rate 92 /min Mihai Lavonne [employer] Work Phone: [facility] 02-23-2025 13:51-0400 Systolic blood pressure 133 mm[Hg] Mihai Lavonne [employer] Work Phone: [facility] 02-20-2025 09:58-0400 Body height 157.48 cm Andrés Rice DO Work Phone: [facility] 02-20-2025 09:58-0400 Body mass index (BMI) [Ratio] 50.3 kg/m2 Andrés Rice DO Work Phone: [facility] 02-20-2025 09:58-0400 Body temperature 98.4 [degF] Andrés Rice DO Work Phone: [facility] 02-20-2025 09:58-0400 Body weight 124.87 kg Andrés Rice DO Work Phone: [facility] 02-20-2025 09:58-0400 Diastolic blood pressure 74 mm[Hg] Andrés Rice DO Work Phone: [facility] 02-20-2025 09:58-0400 Heart rate 90 /min Andrés Rice DO Work Phone: [facility] 02-20-2025 09:58-0400 Respiratory rate 18 /min Andrés Rice DO Work Phone: [facility] 02-20-2025 09:58-0400 SaO2% (BldA) [Mass fraction] 98 % Andrés Rice DO Work Phone: [facility] 02-20-2025 09:58-0400 Systolic blood pressure 138 mm[Hg] Andrés Rice DO Work Phone: [facility] 02-02-2025 10:47-0400 Body height 157.5 cm Sergio Resendez MD Work Phone: [facility] 02-02-2025 10:47-0400 Body mass index (BMI) [Ratio] 49.38 kg/m2 Sergio Resendez MD Work Phone: [facility] 02-02-2025 10:47-0400 Body weight 122.47 kg Sergio Resendez MD Work Phone: [facility] 02-02-2025 10:47-0400 Diastolic blood pressure 82 mm[Hg] Sergio Resendez MD Work Phone: [facility] 02-02-2025 10:47-0400 Heart rate 78 /min Sergio Resendez MD Work Phone: [facility] 02-02-2025 10:47-0400 Respiratory rate 18 /min Sergio Resendez MD Work Phone: [facility] 02-02-2025 10:47-0400 SaO2% (BldA) [Mass fraction] 99 % Sergio Resendez MD Work Phone: [facility] 02-02-2025 10:47-0400 Systolic blood pressure 138 mm[Hg] Sergio Resendez MD Work Phone: [facility] 12-05-2024 12:15-0400 Body temperature 98.71 [degF] Elda Aguirre MD Work Phone: [facility] 12-05-2024 12:15-0400 Diastolic blood pressure 86 mm[Hg] Elda Aguirre MD Work Phone: [facility] 12-05-2024 12:15-0400 Heart rate 82 /min Elda Aguirre MD Work Phone: [facility] 12-05-2024 12:15-0400 Respiratory rate 14 /min Elda Aguirre MD Work Phone: [facility] 12-05-2024 12:15-0400 Systolic blood pressure 149 mm[Hg] Elda Aguirre MD Work Phone: [facility] 12-05-2024 08:12-0400 SaO2% (BldA) [Mass fraction] 94 % Elda Aguirre MD Work Phone: [facility] 12-03-2024 00:15-0400 Body height 157.5 cm Elda Aguirre MD Work Phone: [facility] 12-03-2024 00:15-0400 Body mass index (BMI) [Ratio] 44.91 kg/m2 Elda Aguirre MD Work Phone: [facility] 12-03-2024 00:15-0400 Body weight 111.4 kg Elda Aguirre MD Work Phone: [facility] 09-23-2024 10:55-0400 Diastolic blood pressure 84 mm[Hg] Jim Velez DO Work Phone: [facility] 09-23-2024 10:55-0400 Heart rate 110 /min Jim Velez DO Work Phone: [facility] 09-23-2024 10:55-0400 SaO2% (BldA) [Mass fraction] 98 % Jim Velez DO Work Phone: [facility] 09-23-2024 10:55-0400 Systolic blood pressure 121 mm[Hg] Jim Velez DO Work Phone: [facility] 08-29-2024 13:49-0400 Body height 157.48 cm No Doctor [facility] Work Phone: 08-29-2024 13:49-0400 Body mass index (BMI) [Ratio] 51.2 kg/m2 No Doctor [facility] Work Phone: 08-29-2024 13:49-0400 Body temperature 97.6 [degF] No Doctor [facility] Work Phone: 08-29-2024 13:49-0400 Body weight 127.01 kg No Doctor [facility] Work Phone: 08-29-2024 13:49-0400 Diastolic blood pressure 90 mm[Hg] No Doctor [facility] Work Phone: 08-29-2024 13:49-0400 Heart rate 94 /min No Doctor [facility] Work Phone: 08-29-2024 13:49-0400 Respiratory rate 16 /min No Doctor [facility] Work Phone: 08-29-2024 13:49-0400 SaO2% (BldA) [Mass fraction] 99 % No Doctor [facility] Work Phone: 08-29-2024 13:49-0400 Systolic blood pressure 193 mm[Hg] No Doctor [facility] Work Phone: 08-02-2024 15:13-0400 Diastolic blood pressure 83 mm[Hg] Stephany Pelayo PA-C Work Phone: [facility] 08-02-2024 15:13-0400 Systolic blood pressure 122 mm[Hg] Stephany Pelayo PA-C Work Phone: [facility] 08-02-2024 14:25-0400 Body height 157.5 cm Stephany Walkerague PA-C Work Phone: [facility] 08-02-2024 14:25-0400 Heart rate 88 /min Stephany Aaronmanuela PA-C Work Phone: [facility] 08-02-2024 14:25-0400 SaO2% (BldA) [Mass fraction] 95 % Stephany Aaronague PA-C Work Phone: [facility] 07-15-2024 10:57-0500 Body height 157.5 cm Stephany Aaronmaneula PA-C Work Phone: [facility] 07-15-2024 10:57-0500 Diastolic blood pressure 88 mm[Hg] Stephanylela Pelayo PA-C Work Phone: [facility] 07-15-2024 10:57-0500 Heart rate 87 /min Stephany Walkermanuela PA-C Work Phone: [facility] 07-15-2024 10:57-0500 SaO2% (BldA) [Mass fraction] 98 % Stephany McCague PA-C Work Phone: [facility] 07-15-2024 10:57-0500 Systolic blood pressure 116 mm[Hg] Stephany Wlakermanuela PA-C Work Phone: [facility] 07-05-2024 08:26-0500 Body height 157.5 cm Soto Box DPM FACFA S Work Phone: [facility] 07-05-2024 08:26-0500 Body mass index (BMI) [Ratio] 42.62 kg/m2 Soto Box DPM FACFAS Work Phone: [facility] 07-05-2024 08:26-0500 Body weight 105.69 kg Soto Box DPM FACFA S Work Phone: [facility] 07-05-2024 08:26-0500 Diastolic blood pressure 75 mm[Hg] Soto Box DPM FACFAS Work Phone: [facility] 07-05-2024 08:26-0500 Heart rate 77 /min Soto Box DPM FACFA S Work Phone: [facility] 07-05-2024 08:26-0500 Systolic blood pressure 128 mm[Hg] Soto Box DPM FACFAS Work Phone: [facility] 05-13-2024 08:32-0500 Body height 157.5 cm Mihai Lavonne [employer]ERK Work Phone: [facility] 05-13-2024 08:32-0500 Body mass index (BMI) [Ratio] 51.32 kg/m2 Mihai Lavonne [employer]IV[employer] CLERK Work Phone: [facility] 05-13-2024 08:32-0500 Body weight 127.28 kg Mihai Lavonne SECTION CREWS ACTIVITIES CLERK Work Phone: [facility] 05-13-2024 08:32-0500 Diastolic blood pressure 109 mm[Hg] Mihai Lavonne SECTION CREWS ACTIVITIES CLERK Work Phone: [facility] 05-13-2024 08:32-0500 Heart rate 90 /min Mihai Lavonne SE[employer] CREWS ACTIVITIES CLERK Work Phone: [facility] 05-13-2024 08:32-0500 Systolic blood pressure 173 mm[Hg] Mihai Lavonne SECTION CREWS ACTIVITIES CLERK Work Phone: [facility] 04-29-2024 13:41-0500 Respiratory rate 16 /min Ali Kamille DO Work Phone: [facility] 04-29-2024 11:37-0500 Body temperature 97.5 [degF] Ali Kamille DO Work Phone: [facility] 04-29-2024 11:37-0500 Diastolic blood pressure 73 mm[Hg] Ali Kamille DO Work Phone: [facility] 04-29-2024 11:37-0500 Heart rate 78 /min Ali Kamille DO Work Phone: [facility] 04-29-2024 11:37-0500 SaO2% (BldA) [Mass fraction] 98 % Ali Kamille DO Work Phone: [facility] 04-29-2024 11:37-0500 Systolic blood pressure 114 mm[Hg] Ali Kamille DO Work Phone: [facility] 04-29-2024 03:00-0500 Body mass index (BMI) [Ratio] 51.73 kg/m2 Ali Kamille DO Work Phone: [facility] 04-29-2024 03:00-0500 Body weight 128.3 kg Ali Kamille DO Work Phone: [facility] 04-27-2024 01:27-0500 Body height 157.5 cm Ali Kamille DO Work Phone: [facility] 04-04-2024 15:44-0500 Diastolic blood pressure 87 mm[Hg] Ruthy Dong MD Work Phone: [facility] 04-04-2024 15:44-0500 Heart rate 66 /min Ruthy Dong MD Work Phone: [facility] 04-04-2024 15:44-0500 Respiratory rate 18 /min Ruthy Dong MD Work Phone: [facility] 04-04-2024 15:44-0500 SaO2% (BldA) [Mass fraction] 94 % Ruthy Dong MD Work Phone: [facility] 04-04-2024 15:44-0500 Systolic blood pressure 149 mm[Hg] Ruthy Dong MD Work Phone: [facility] 04-04-2024 11:24-0500 Body temperature 97.81 [degF] Ruthy Dong MD Work Phone: [facility] 03-30-2024 04:29-0500 Body mass index (BMI) [Ratio] 49.84 kg/m2 Ruthy Dong MD Work Phone: [facility] 03-30-2024 04:29-0500 Body weight 123.6 kg Ruthy Dong MD Work Phone: [facility] 03-25-2024 01:58-0400 Body height 157.5 cm Ruthy Dong MD Work Phone: [facility] 03-22-2024 11:23-0400 Diastolic blood pressure 94 mm[Hg] Stephany McCague PA-C Work Phone: [facility] 03-22-2024 11:23-0400 Systolic blood pressure 142 mm[Hg] Stephany McCague PA-C Work Phone: [facility] 03-22-2024 10:41-0400 Body height 157.5 cm Stephany McCague PA-C Work Phone: [facility] 03-22-2024 10:41-0400 Heart rate 103 /min Stephany McCague PA-C Work Phone: [facility] 03-22-2024 10:41-0400 SaO2% (BldA) [Mass fraction] 98 % Stephany McCague PA-C Work Phone: [facility] 02-11-2024 11:41-0400 Diastolic blood pressure 126 mm[Hg] Stephany McCague PA-C Work Phone: [facility] 02-11-2024 11:41-0400 Systolic blood pressure 193 mm[Hg] Stephany McCague PA-C Work Phone: [facility] 02-11-2024 11:03-0400 Body height 157.5 cm Stephany McCague PA-C Work Phone: [facility] 02-11-2024 11:03-0400 Heart rate 89 /min Stephany McCague PA-C Work Phone: [facility] 02-11-2024 11:03-0400 SaO2% (BldA) [Mass fraction] 97 % Stephany McCague PA-C Work Phone: [facility] 02-02-2024 16:04-0400 Body mass index (BMI) [Ratio] 51.21 kg/m2 Jim Velez DO Work Phone: [facility] 02-02-2024 16:04-0400 Body weight 127.01 kg Jim Velez DO Work Phone: [facility] 02-02-2024 16:04-0400 Diastolic blood pressure 108 mm[Hg] Jim Velez DO Work Phone: [facility] 02-02-2024 16:04-0400 Heart rate 96 /min Jim Velez DO Work Phone: [facility] 02-02-2024 16:04-0400 Respiratory rate 18 /min Jim Velez DO Work Phone: [facility] 02-02-2024 16:04-0400 SaO2% (BldA) [Mass fraction] 96 % Jim Velez DO Work Phone: [facility] 02-02-2024 16:04-0400 Systolic blood pressure 181 mm[Hg] Jim Velez DO Work Phone: [facility] 01-27-2024 13:36-0400 Body height 157.5 cm Rafaela Lill SECTION CREWS ACTIVITIES CLERK Work Phone: [facility] Comment on above: per pt 01-27-2024 13:36-0400 Body mass index (BMI) [Ratio] 51.03 kg/m2 Rafaela Lill SECTION CREWS ACTIVITIES CLERK Work Phone: [facility] 01-27-2024 13:36-0400 Body weight 126.55 kg Rafaela Lill SECTION CREWS ACTIVITIES CLERK Work Phone: [facility] 01-27-2024 13:36-0400 Diastolic blood pressure 90 mm[Hg] Rafaela Lill SECTION CREWS ACTIVITIES CLERK Work Phone: [facility] 01-27-2024 13:36-0400 Heart rate 90 /min Rafaela Lill SECTION CREWS ACTIVITIES CLERK Work Phone: [facility] 01-27-2024 13:36-0400 SaO2% (BldA) [Mass fraction] 94 % Rafaela Lill SECTION CREWS ACTIVITIES CLERK Work Phone: [facility] 01-27-2024 13:36-0400 Systolic blood pressure 139 mm[Hg] Rafaela Lill SECTION CREWS ACTIVITIES CLERK Work Phone: [facility] 01-18-2024 08:56-0400 Respiratory rate 16 /min Harshad Rizzo MD Work Phone: [facility] 01-18-2024 08:18-0400 Body temperature 97.7 [degF] Harshad Rizzo MD Work Phone: [facility] 01-18-2024 08:18-0400 Diastolic blood pressure 78 mm[Hg] Harshad Rizzo MD Work Phone: [facility] 01-18-2024 08:18-0400 Heart rate 65 /min Harshad Rizzo MD Work Phone: [facility] 01-18-2024 08:18-0400 Systolic blood pressure 140 mm[Hg] Harshad Rizzo MD Work Phone: [facility] 01-18-2024 02:58-0400 Body mass index (BMI) [Ratio] 52.62 kg/m2 Harshad Rizzo MD Work Phone: [facility] 01-18-2024 02:58-0400 Body weight 130.5 kg Harshad Rizzo MD Work Phone: [facility] 01-18-2024 02:58-0400 SaO2% (BldA) [Mass fraction] 94 % Harshad Rizzo MD Work Phone: [facility] 01-12-2024 14:36-0400 Body height 157.5 cm Harshad Rizzo MD Work Phone: [facility] 01-12-2024 13:59-0400 Diastolic blood pressure 93 mm[Hg] Stephany Pelayo PA-C Work Phone: [facility] 01-12-2024 13:59-0400 Systolic blood pressure 139 mm[Hg] Stephany Pelayo PA-C Work Phone: [facility] 01-12-2024 13:38-0400 Body height 157.5 cm Stephany Pelayo PA-C Work Phone: [facility] 01-12-2024 13:38-0400 Heart rate 96 /min Stephany Pelayo PA-C Work Phone: [facility] 01-12-2024 13:38-0400 SaO2% (BldA) [Mass fraction] 95 % Stephany Pelayo PA-C Work Phone: [facility] 12-08-2023 13:53-0400 Body mass index (BMI) [Ratio] 47.55 kg/m2 Jim Velez DO Work Phone: [facility] 12-08-2023 13:53-0400 Body weight 117.94 kg Jim Velez DO Work Phone: [facility] 12-08-2023 13:53-0400 Diastolic blood pressure 113 mm[Hg] Jim Velez DO Work Phone: [facility] 12-08-2023 13:53-0400 Heart rate 91 /min Jim Velez DO Work Phone: [facility] 12-08-2023 13:53-0400 Respiratory rate 18 /min Jim Velez DO Work Phone: [facility] 12-08-2023 13:53-0400 SaO2% (BldA) [Mass fraction] 93 % Jim Velez DO Work Phone: [facility] 12-08-2023 13:53-0400 Systolic blood pressure 166 mm[Hg] Jim Velez DO Work Phone: [facility] 12-02-2023 13:53-0400 Body height 157.5 cm Sahara Sanchez MD Work Phone: [facility] 12-02-2023 13:53-0400 Body mass index (BMI) [Ratio] 49.93 kg/m2 Sahara Sanchez MD Work Phone: [facility] 12-02-2023 13:53-0400 Body weight 123.83 kg Sahara Sanchez MD Work Phone: [facility] 12-02-2023 13:53-0400 Diastolic blood pressure 92 mm[Hg] Sahara Sanchez MD Work Phone: [facility] 12-02-2023 13:53-0400 Heart rate 92 /min Sahara Sanchez MD Work Phone: [facility] 12-02-2023 13:53-0400 Respiratory rate 16 /min Sahara Sanchez MD Work Phone: [facility] 12-02-2023 13:53-0400 Systolic blood pressure 153 mm[Hg] Sahara Sanchez MD Work Phone: [facility] 12-01-2023 15:34-0400 Body height 157.5 cm Stephany McCague PA-C Work Phone: [facility] 12-01-2023 15:34-0400 Body temperature 98.01 [degF] Stephany McCague PA-C Work Phone: [facility] 12-01-2023 15:34-0400 Diastolic blood pressure 72 mm[Hg] Stephany Aaronague PA-C Work Phone: [facility] 12-01-2023 15:34-0400 Heart rate 106 /min Stephany McCague PA-C Work Phone: [facility] 12-01-2023 15:34-0400 SaO2% (BldA) [Mass fraction] 98 % Stephany McCague PA-C Work Phone: [facility] 12-01-2023 15:34-0400 Systolic blood pressure 131 mm[Hg] Stephany McCague PA-C Work Phone: [facility] 11-09-2023 15:47-0400 Diastolic blood pressure 99 mm[Hg] Anders London MD Work Phone: [facility] 11-09-2023 15:47-0400 Heart rate 90 /min Anders London MD Work Phone: [facility] 11-09-2023 15:47-0400 Systolic blood pressure 144 mm[Hg] Anders London MD Work Phone: [facility] 10-13-2023 11:49-0400 Diastolic blood pressure 109 mm[Hg] Stephany McCague PA-C Work Phone: [facility] 10-13-2023 11:49-0400 Systolic blood pressure 169 mm[Hg] Stephany Pelayo PA-C Work Phone: [facility] 10-13-2023 11:24-0400 Body temperature 97 [degF] Stephany Pelayo PA-C Work Phone: [facility] 10-13-2023 11:24-0400 Heart rate 93 /min Stephany Pelayo PA-C Work Phone: [facility] 10-13-2023 11:24-0400 SaO2% (BldA) [Mass fraction] 95 % Stephany Pelayo PA-C Work Phone: [facility] 10-07-2023 15:04-0400 Diastolic blood pressure 91 mm[Hg] Zoë Garcia MD Work Phone: [facility] 10-07-2023 15:04-0400 Heart rate 98 /min Zoë Garcia MD Work Phone: [facility] 10-07-2023 15:04-0400 SaO2% (BldA) [Mass fraction] 96 % Zoë Garcia MD Work Phone: [facility] 10-07-2023 15:04-0400 Systolic blood pressure 169 mm[Hg] Zoë Garcia MD Work Phone: [facility] 09-16-2023 13:07-0400 Diastolic blood pressure 100 mm[Hg] Virgen Campos MD Work Phone: [facility] 09-16-2023 13:07-0400 Heart rate 97 /min Virgen Campos MD Work Phone: [facility] 09-16-2023 13:07-0400 SaO2% (BldA) [Mass fraction] 97 % Virgen Campos MD Work Phone: [facility] 09-16-2023 13:07-0400 Systolic blood pressure 166 mm[Hg] Virgen Campos MD Work Phone: [facility] 09-03-2023 14:30-0400 Diastolic blood pressure 88 mm[Hg] Stephany Pelayo PA-C Work Phone: [facility] 09-03-2023 14:30-0400 Systolic blood pressure 138 mm[Hg] Stephany Morales PA-C Work Phone: [facility] 09-03-2023 13:43-0400 Body height 157.5 cm Stephany Morales PA-C Work Phone: [facility] 09-03-2023 13:43-0400 Body mass index (BMI) [Ratio] 50.66 kg/m2 Stephany Morales PA-C Work Phone: [facility] 09-03-2023 13:43-0400 Body temperature 97.7 [degF] Stephany Pelayo PA-C Work Phone: [facility] 09-03-2023 13:43-0400 Body weight 125.65 kg Stephany Morales PA-C Work Phone: [facility] 09-03-2023 13:43-0400 Heart rate 91 /min Stephany Morales PA-C Work Phone: [facility] 09-03-2023 13:43-0400 SaO2% (BldA) [Mass fraction] 98 % Stephany Morales PA-C Work Phone: [facility] 08-26-2023 19:31-0400 Diastolic blood pressure 93 mm[Hg] Floyd Mercado MD Work Phone: [facility] 08-26-2023 19:31-0400 Systolic blood pressure 154 mm[Hg] Floyd Mercado MD Work Phone: [facility] 08-26-2023 17:47-0400 Body temperature 97.39 [degF] Floyd Mercado MD Work Phone: [facility] 08-26-2023 17:47-0400 Heart rate 100 /min Floyd Mercado MD Work Phone: [facility] 08-26-2023 17:47-0400 Respiratory rate 15 /min Floyd Mercado MD Work Phone: [facility] 08-26-2023 17:47-0400 SaO2% (BldA) [Mass fraction] 99 % Floyd Mercado MD Work Phone: [facility] 08-03-2023 14:22-0400 Diastolic blood pressure 90 mm[Hg] Zoë Garcia MD Work Phone: [facility] 08-03-2023 14:22-0400 Heart rate 103 /min Zoë Garcia MD Work Phone: [facility] 08-03-2023 14:22-0400 Systolic blood pressure 140 mm[Hg] Zoë Garcia MD Work Phone: [facility] 06-22-2023 14:54-0500 Diastolic blood pressure 91 mm[Hg] Harris Bhat MD Work Phone: [facility] 06-22-2023 14:54-0500 Systolic blood pressure 162 mm[Hg] Harris Bhat MD Work Phone: [facility] 06-22-2023 14:40-0500 Body height 157.5 cm Harris Bhat MD Work Phone: [facility] 06-22-2023 14:40-0500 Body temperature 97.39 [degF] Harris Bhat MD Work Phone: [facility] 06-22-2023 14:40-0500 Heart rate 96 /min Harris Bhat MD Work Phone: [facility] 06-22-2023 14:40-0500 SaO2% (BldA) [Mass fraction] 98 % Harris Bhat MD Work Phone: [facility] 05-15-2023 15:09-0500 Body height 157.5 cm Stephany Pelayo PA-C Work Phone: [facility] 05-15-2023 15:09-0500 Body mass index (BMI) [Ratio] 47.55 kg/m2 Stephany Pelayo PA-C Work Phone: [facility] 05-15-2023 15:09-0500 Body temperature 97.3 [degF] Stephany Walkermanuela PA-C Work Phone: [facility] 05-15-2023 15:09-0500 Body weight 117.94 kg Stephany Pelayo PA-C Work Phone: [facility] 05-15-2023 15:09-0500 Diastolic blood pressure 78 mm[Hg] Stephany Walkermanuela PA-C Work Phone: [facility] 05-15-2023 15:09-0500 Heart rate 95 /min Stephany Walkermanuela PA-C Work Phone: [facility] 05-15-2023 15:09-0500 SaO2% (BldA) [Mass fraction] 97 % Stephany Pelayo PA-C Work Phone: [facility] 05-15-2023 15:09-0500 Systolic blood pressure 138 mm[Hg] Stephany Pelayo PA-C Work Phone: [facility] 05-06-2023 11:40-0500 Diastolic blood pressure 102 mm[Hg] Stephany Walkermanuela PA-C Work Phone: [facility] 05-06-2023 11:40-0500 Systolic blood pressure 182 mm[Hg] Stephany Walkerague PA-C Work Phone: [facility] 05-06-2023 11:31-0500 Body mass index (BMI) [Ratio] 47.76 kg/m2 Stephany Walkermanuela PA-C Work Phone: [facility] 05-06-2023 11:31-0500 Body temperature 96.3 [degF] Stephany Aaronmanuela PA-C Work Phone: [facility] 05-06-2023 11:31-0500 Body weight 118.43 kg Stephany Morales PA-C Work Phone: [facility] 05-06-2023 11:31-0500 Heart rate 94 /min Stephany Morales PA-C Work Phone: [facility] 05-06-2023 11:31-0500 SaO2% (BldA) [Mass fraction] 98 % Stephany Morales PA-C Work Phone: [facility] 04-15-2023 15:45-0500 Body temperature 97.81 [degF] Ama Wilcox RN [facility] 04-15-2023 15:45-0500 Diastolic blood pressure 108 mm[Hg] Ama Wilcox RN [facility] 04-15-2023 15:45-0500 Heart rate 72 /min Ama Wilcox RN [facility] 04-15-2023 15:45-0500 Respiratory rate 18 /min Ama Wilcox RN [facility] 04-15-2023 15:45-0500 SaO2% (BldA) [Mass fraction] 96 % Ama Wilcox RN [facility] 04-15-2023 15:45-0500 Systolic blood pressure 136 mm[Hg] Ama Wilcox RN [facility] 04-15-2023 15:14-0500 Body temperature 97.5 [degF] Keyla Johnson [facility] 04-15-2023 15:14-0500 Diastolic blood pressure 108 mm[Hg] Keyla Johnson [facility] 04-15-2023 15:14-0500 Heart rate 87 /min Keyla Johnson [facility] 04-15-2023 15:14-0500 Respiratory rate 13 /min Keyla Johnson [facility] 04-15-2023 15:14-0500 SaO2% (BldA) [Mass fraction] 97 % Keyla Johnson [facility] 04-15-2023 15:14-0500 Systolic blood pressure 136 mm[Hg] Keyla Johnson [facility] 04-14-2023 16:30-0500 Body temperature 98.1 [degF] Cece Colin OT [facility] 04-14-2023 16:30-0500 Diastolic blood pressure 77 mm[Hg] Cece Cristi [facility] 04-14-2023 16:30-0500 Heart rate 90 /min Cece Colin OT [facility] 04-14-2023 16:30-0500 Respiratory rate 17 /min Cece Colin OT [facility] 04-14-2023 16:30-0500 SaO2% (BldA) [Mass fraction] 98 % Cece Colin OT [facility] 04-14-2023 16:30-0500 Systolic blood pressure 148 mm[Hg] Cece Colin OT [facility] 04-14-2023 09:33-0500 Body temperature 98.4 [degF] Nikko Pratt CELLOPH[employer] CASTING MACHINE REPAIRER [facility] 04-14-2023 09:33-0500 Diastolic blood pressure 99 mm[Hg] Nikko Pratt CELLOPH[employer] CASTING MACHINE REPAIRER [facility] 04-14-2023 09:33-0500 Heart rate 77 /min Nikko Pratt CELLOPHANE CASTING MACHINE REPAIRER [facility] 04-14-2023 09:33-0500 Respiratory rate 17 /min Nikko Pratt CELLOPHANE CASTING MACHINE REPAIRER [facility] 04-14-2023 09:33-0500 SaO2% (BldA) [Mass fraction] 96 % Nikko Pratt CELLOPH[employer] CASTING MACHINE REPAIRER [facility] 04-14-2023 09:33-0500 Systolic blood pressure 160 mm[Hg] Nikko Pratt CELLOPHANE CASTING MACHINE REPAIRER [facility] 04-08-2023 12:04-0500 Body temperature 98.1 [degF] Lisa Padron PT [facility] 04-08-2023 12:04-0500 Diastolic blood pressure 74 mm[Hg] Lisa Padron PT [facility] 04-08-2023 12:04-0500 Heart rate 78 /min Lisa Padron PT [facility] 04-08-2023 12:04-0500 Respiratory rate 13 /min Lisa Padron PT [facility] 04-08-2023 12:04-0500 SaO2% (BldA) [Mass fraction] 99 % Lisa Padron PT [facility] 04-08-2023 12:04-0500 Systolic blood pressure 134 mm[Hg] Lisa Padron PT [facility] 04-08-2023 11:18-0500 Body temperature 98.71 [degF] Carlitos Carrera [facility] 04-08-2023 11:18-0500 Diastolic blood pressure 84 mm[Hg] [facility]-08-[facility] 11:18-0500 Heart rate 76 /min Carlitos Carrera LPN [facility] 04-08-2023 11:18-0500 Respiratory rate 16 /min Carlitos Carrera LPN [facility] 04-08-2023 11:18-0500 SaO2% (BldA) [Mass fraction] 99 % Carlitos Carrera LPN [facility] 04-08-2023 11:18-0500 Systolic blood pressure 126 mm[Hg] Carlitos Carrera LPN [facility] 04-01-2023 00:00-0500 Body temperature 98.6 [degF] Kassidy Wick RN [facility] 04-01-2023 00:00-0500 Diastolic blood pressure 94 mm[Hg] Kassidy Wick RN [facility] 04-01-2023 00:00-0500 Heart rate 60 /min Kassidy Wick RN [facility] 04-01-2023 00:00-0500 Respiratory rate 16 /min Kassidy Wick RN [facility] 04-01-2023 00:00-0500 SaO2% (BldA) [Mass fraction] 100 % Kassidy Wick RN [facility] 04-01-2023 00:00-0500 Systolic blood pressure 142 mm[Hg] Kassidy Wick RN [facility] 03-30-2023 11:57-0500 Body temperature 97.81 [degF] Harshad Rizzo MD Work Phone: [facility] 03-30-2023 11:57-0500 Diastolic blood pressure 62 mm[Hg] Harshad Rizzo MD Work Phone: [facility] 03-30-2023 11:57-0500 Heart rate 65 /min Harshad Rizzo MD Work Phone: [facility] 03-30-2023 11:57-0500 SaO2% (BldA) [Mass fraction] 98 % Harshad Rizzo MD Work Phone: [facility] 03-30-2023 11:57-0500 Systolic blood pressure 97 mm[Hg] Harshad Rizzo MD Work Phone: [facility] 03-30-2023 07:23-0500 Respiratory rate 15 /min Harshad Rizzo MD Work Phone: [facility] 03-29-2023 14:38-0500 Body height 157.5 cm Harshad Rizzo MD Work Phone: [facility] 03-29-2023 14:38-0500 Body mass index (BMI) [Ratio] 46.81 kg/m2 Harshad Rizzo MD Work Phone: [facility] 03-29-2023 14:38-0500 Body weight 116.1 kg Harshad Rizzo MD Work Phone: [facility] 02-20-2023 08:00-0400 Respiratory rate 16 /min Harshad Rizzo MD Work Phone: [facility] 02-20-2023 07:36-0400 Body temperature 97.9 [degF] Harshad Rizzo MD Work Phone: [facility] 02-20-2023 07:36-0400 Diastolic blood pressure 78 mm[Hg] Harshad Rizzo MD Work Phone: [facility] 02-20-2023 07:36-0400 Heart rate 89 /min Harshad Rizzo MD Work Phone: [facility] 02-20-2023 07:36-0400 SaO2% (BldA) [Mass fraction] 99 % Harshad Rizzo MD Work Phone: [facility] 02-20-2023 07:36-0400 Systolic blood pressure 111 mm[Hg] Harshad Rizzo MD Work Phone: [facility] 02-20-2023 04:34-0400 Body mass index (BMI) [Ratio] 46.53 kg/m2 Harshad Rizzo MD Work Phone: [facility] 02-20-2023 04:34-0400 Body weight 115.4 kg Harshad Rizzo MD Work Phone: [facility] 02-18-2023 02:46-0400 Body height 157.5 cm Harshad Rizzo MD Work Phone: [facility] 02-09-2023 15:24-0400 Body height 157.5 cm Josué Christianson DO Work Phone: [facility] 02-09-2023 15:24-0400 Body mass index (BMI) [Ratio] 45.73 kg/m2 Josué Mellis DO Work Phone: [facility] 02-09-2023 15:24-0400 Body weight 113.4 kg Josué Symoneis DO Work Phone: [facility] 10-07-2022 06:43-0400 Diastolic blood pressure 51 mm[Hg] Jocelyn Bowen MD Work Phone: [facility] 10-07-2022 06:43-0400 Heart rate 62 /min Jocelyn Bowen MD Work Phone: [facility] 10-07-2022 06:43-0400 SaO2% (BldA) [Mass fraction] 96 % Jocelyn Bowen MD Work Phone: [facility] 10-07-2022 06:43-0400 Systolic blood pressure 99 mm[Hg] Jocelyn Bowen MD Work Phone: [facility] 10-06-2022 19:48-0400 Body temperature 97.59 [degF] Jocelyn Bowen MD Work Phone: [facility] 10-06-2022 19:48-0400 Respiratory rate 17 /min Jocelyn Bowen MD Work Phone: [facility] 10-06-2022 18:21-0400 Diastolic blood pressure 118 mm[Hg] Preston Lugo [facility] 10-06-2022 18:21-0400 Heart rate 109 /min Preston Charli [facility] 10-06-2022 18:21-0400 Mean blood pressure 129 mm[Hg] Preston Lugo [facility] 10-06-2022 18:21-0400 Respiratory rate 18 /min Preston Charli [facility] 10-06-2022 18:21-0400 SaO2% (BldA) [Mass fraction] 99 % Preston Charli [facility] 10-06-2022 18:21-0400 Systolic blood pressure 152 mm[Hg] Preston Jonese [facility] 10-06-2022 17:00-0400 Diastolic blood pressure 113 mm[Hg] Preston Jonese [facility] 10-06-2022 17:00-0400 Heart rate 106 /min Preston Jonese [facility] 10-06-2022 17:00-0400 Mean blood pressure 126 mm[Hg] Preston Jonese [facility] 10-06-2022 17:00-0400 Respiratory rate 16 /min Preston Jonese [facility] 10-06-2022 17:00-0400 SaO2% (BldA) [Mass fraction] 97 % Preston Jonese [facility] 10-06-2022 16:00-0400 Diastolic blood pressure 100 mm[Hg] Preston Jonese [facility] 10-06-2022 16:00-0400 Mean blood pressure 109 mm[Hg] Preston Jonese [facility] 10-06-2022 16:00-0400 SaO2% (BldA) [Mass fraction] 100 % Preston Jonese [facility] 10-06-2022 16:00-0400 Systolic blood pressure 126 mm[Hg] Preston Jonese [facility] 10-06-2022 14:26-0400 Body temperature 98.24 [degF] Preston Charli [facility] 10-06-2022 14:26-0400 Heart rate 112 /min Preston Jonese [facility] 09-15-2022 15:00-0400 Hourly Rounding Pepe Kinza [facility] 09-15-2022 15:00-0400 Promise to Return Pepe Kinza [facility] 09-15-2022 14:00-0400 Hourly Rounding Pepe Kinza [facility] 09-15-2022 14:00-0400 Promise to Return Pepe Kinza [facility] 09-15-2022 13:00-0400 Hourly Rounding Pepe Kinza [facility] 09-15-2022 13:00-0400 Promise to Return Pepe Kinza [facility] 09-15-2022 12:00-0400 Blood Pressure Location Pepe Kinza [facility] 09-15-2022 12:00-0400 Body temperature 98.06 [degF] Pepe Kinza [facility] 09-15-2022 12:00-0400 Diastolic blood pressure 80 mm[Hg] Pepe Kinza [facility] 09-15-2022 12:00-0400 Heart rate 59 /min Pepe Kinza [facility] 09-15-2022 12:00-0400 Mean blood pressure 94 mm[Hg] Pepe Kinza [facility] 09-15-2022 12:00-0400 Respiratory rate 16 /min Pepe Kinza [facility] 09-15-2022 12:00-0400 SaO2% (BldA) [Mass fraction] 96 % Pepe Kinza [facility] 09-15-2022 12:00-0400 Systolic blood pressure 122 mm[Hg] Pepe Kinza [facility] 09-15-2022 08:35-0400 Diastolic blood pressure 81 mm[Hg] Pepe Kinza [facility] 09-15-2022 08:35-0400 Heart rate 72 /min Pepe [facility] 09-15-2022 08:35-0400 Systolic blood pressure 170 mm[Hg] Pepe [facility] 09-15-2022 08:00-0400 Heart rate 68 /min Pe[facility] 09-15-2022 08:00-0400 Mean blood pressure 111 mm[Hg] [facility] 09-15-2022 08:00-0400 SaO2% (BldA) [Mass fraction] 94 % Pe[facility] 09-15-2022 01:00-0400 Body temperature 97.88 [degF] Pe[facility] 09-15-2022 01:00-0400 Heart rate 61 /min Pe[facility] 09-15-2022 01:00-0400 SaO2% (BldA) [Mass fraction] 96 % Pepe [facility] 09-14-2022 16:00-0400 Blood Pressure Location Pepe [facility] 09-14-2022 16:00-0400 Heart rate 94 /min Pepe [facility] 09-14-2022 16:00-0400 Mean blood pressure 135 mm[Hg] Pe[facility] 09-14-2022 12:00-0400 Heart rate 106 /min Pe[facility] 09-14-2022 07:00-0400 Heart rate 90 /min Pe[facility] 09-13-2022 23:58-0400 Heart rate 91 /min Pe[facility] 09-13-2022 21:01-0400 Heart rate 92 /min Pe[facility] 09-13-2022 16:08-0400 gluc 132 mg/dL Pe[facility] 09-13-2022 12:30-0400 gluc 85 mg/dL Pe[facility] 09-13-2022 07:21-0400 gluc 122 mg/dL Pe[facility] 09-12-2022 19:20-0400 Mean blood pressure 114 mm[Hg] [facility] 09-12-2022 16:45-0400 Respiratory rate 18 /min Pe[facility] 09-12-2022 07:12-0400 Body height 157.48 cm SECRETARY-C Kip Soviak Work Phone: [facility] 09-12-2022 07:12-0400 Body temperature 98 [degF] SECRETARY-C Kip Soviak Work Phone: [facility] 09-12-2022 07:12-0400 Body weight 113.39 kg SECRETARY-C Kip Soviak Work Phone: [facility] 09-12-2022 07:12-0400 Diastolic blood pressure 98 mm[Hg] SECRETARY-C Kip Soviak Work Phone: [facility] 09-12-2022 07:12-0400 Heart rate 98 /min SECRETARY-C Kip Soviak Work Phone: [facility] 09-12-2022 07:12-0400 Respiratory rate 16 /min SECRETARY-C Kip Soviak Work Phone: [facility] 09-12-2022 07:12-0400 SaO2% (BldA) [Mass fraction] 97 % SECRETARY-C Kip Soviak Work Phone: [facility] 09-12-2022 07:12-0400 Systolic blood pressure 144 mm[Hg] SECRETARY-C Kip Soviak Work Phone: [facility] 08-22-2022 14:55-0400 Body temperature 98.2 [degF] SECRETARY-C Kip Soviak Work Phone: [facility] 08-22-2022 14:55-0400 Diastolic blood pressure 90 mm[Hg] SECRETARY-C Kip Soviak Work Phone: [facility] 08-22-2022 14:55-0400 Heart rate 77 /min SECRETARY-C Kip Soviak Work Phone: [facility] 08-22-2022 14:55-0400 Respiratory rate 20 /min SECRETARY-C Kip Soviak Work Phone: [facility] 08-22-2022 14:55-0400 SaO2% (BldA) [Mass fraction] 96 % SECRETARY-C Kip Soviak Work Phone: [facility] 08-22-2022 14:55-0400 Systolic blood pressure 144 mm[Hg] SECRETARY-C Kip Soviak Work Phone: [facility] 08-22-2022 06:00-0400 Body weight 118 kg SECRETARY-C Kip Soviak Work Phone: [facility] 08-20-2022 16:45-0400 Body height 157.48 cm SECRETARY-C Kip Soviak Work Phone: [facility] 08-20-2022 02:34-0400 Diastolic blood pressure 96 mm[Hg] SECRETARY-C Kip Soviak Work Phone: [facility] 08-20-2022 02:34-0400 Heart rate 72 /min SECRETARY-C Kip Soviak Work Phone: [facility] 08-20-2022 02:34-0400 Respiratory rate 18 /min SECRETARY-C Kip Soviak Work Phone: [facility] 08-20-2022 02:34-0400 SaO2% (BldA) [Mass fraction] 100 % SECRETARY-C Kip Soviak Work Phone: [facility] 08-20-2022 02:34-0400 Systolic blood pressure 194 mm[Hg] SECRETARY-C Kip Soviak Work Phone: [facility] 08-19-2022 21:42-0400 Body height 157.48 cm SECRETARY-C Kip Soviak Work Phone: [facility] 08-19-2022 21:42-0400 Body temperature 97.6 [degF] SECRETARY-C Kip Soviak Work Phone: [facility] 08-19-2022 21:42-0400 Body weight 114.1 kg SECRETARY-C Kip Soviak Work Phone: [facility] 08-19-2022 20:27-0400 Diastolic blood pressure 136 mm[Hg] [facility] 08-19-2022 20:27-0400 Heart rate 104 /min Santos [facility] 08-19-2022 20:27-0400 Mean blood pressure 154 mm[Hg] Santos [facility] 08-19-2022 20:27-0400 Respiratory rate 23 /min Santos [facility] 08-19-2022 20:27-0400 SaO2% (BldA) [Mass fraction] 97 % Santos [facility] 08-19-2022 20:27-0400 Systolic blood pressure 189 mm[Hg] Santos [facility] 08-19-2022 18:00-0400 Diastolic blood pressure 98 mm[Hg] Santos [facility] 08-19-2022 18:00-0400 Respiratory rate 18 /min Santos [facility] 08-19-2022 18:00-0400 Systolic blood pressure 164 mm[Hg] Santos [facility] 08-19-2022 17:04-0400 Body temperature 97.7 [degF] Santos [facility] 08-19-2022 17:04-0400 Diastolic blood pressure 124 mm[Hg] Santos [facility] 08-19-2022 17:04-0400 Heart rate 108 /min Santos [facility] 08-19-2022 17:04-0400 Respiratory rate 16 /min Santos [facility] 08-19-2022 17:04-0400 SaO2% (BldA) [Mass fraction] 98 % Santos [facility] 08-19-2022 17:04-0400 Systolic blood pressure 183 mm[Hg] Santos [facility] 06-02-2022 20:00-0500 Diastolic blood pressure 88 mm[Hg] Bridget[facility] 06-02-2022 20:00-0500 Heart rate 92 /min [facility] 06-02-2022 20:00-0500 Mean blood pressure 109 mm[Hg] [facility] 06-02-2022 20:00-0500 Respiratory rate 17 /min [facility] 06-02-2022 20:00-0500 SaO2% (BldA) [Mass fraction] 100 % [facility] 06-02-2022 20:00-0500 Systolic blood pressure 150 mm[Hg] [facility] 06-02-2022 19:00-0500 Diastolic blood pressure 95 mm[Hg] [facility] 06-02-2022 19:00-0500 Heart rate 97 /min [facility] 06-02-2022 19:00-0500 Mean blood pressure 115 mm[Hg] [facility] 06-02-2022 19:00-0500 SaO2% (BldA) [Mass fraction] 99 % [facility] 06-02-2022 19:00-0500 Systolic blood pressure 154 mm[Hg] [facility] 06-02-2022 18:00-0500 Diastolic blood pressure 94 mm[Hg] [facility] 06-02-2022 18:00-0500 Heart rate 96 /min [facility] 06-02-2022 18:00-0500 Mean blood pressure 122 mm[Hg] [facility] 06-02-2022 18:00-0500 SaO2% (BldA) [Mass fraction] 98 % [facility] 06-02-2022 18:00-0500 Systolic blood pressure 178 mm[Hg] [facility] 06-02-2022 15:50-0500 Body temperature 97.7 [degF] [facility] 06-02-2022 15:50-0500 Heart rate 100 /min [facility] 06-02-2022 15:50-0500 Respiratory rate 18 /min [facility] 05-15-2022 16:18-0500 Body temperature 98.24 [degF] [facility] 05-15-2022 16:18-0500 Diastolic blood pressure 85 mm[Hg] [facility] 05-15-2022 16:18-0500 Heart rate 99 /min Santos [facility] 05-15-2022 16:18-0500 Respiratory rate 18 /min Santos [facility] 05-15-2022 16:18-0500 SaO2% (BldA) [Mass fraction] 97 % Santos [facility] 05-15-2022 16:18-0500 Systolic blood pressure 135 mm[Hg] Santos [facility] 04-09-2022 10:00-0500 Hourly Rounding Ashutosh [facility] 04-09-2022 10:00-0500 Promise to Return Ashutoshnickie [facility] 04-09-2022 09:00-0500 Hourly Rounding Ashutosh [facility] 04-09-2022 09:00-0500 Promise to Return Ashutosh [facility] 04-09-2022 08:51-0500 Diastolic blood pressure 64 mm[Hg] [facility]ut[facility] 04-09-2022 08:51-0500 Systolic blood pressure 91 mm[Hg] [facility]ut[facility] 04-09-2022 08:19-0500 Heart rate 63 /min [facility]utosh[facility]ie [facility] 04-09-2022 08:19-0500 Respiratory rate 18 /min [facility]ie [facility] 04-09-2022 08:14-0500 Heart rate 61 /min [facility]osh[facility] 04-09-2022 08:14-0500 Respiratory rate 18 /min [facility]ie [facility] 04-09-2022 08:03-0500 Blood Pressure Location Ashutoshnickie [facility] 04-09-2022 08:03-0500 Body temperature 97.52 [degF] [facility]utosh[facility]ie [facility] 04-09-2022 08:03-0500 BP/Pulse Patient Position Ashutoshnickie [facility] 04-09-2022 08:03-0500 Diastolic blood pressure 64 mm[Hg] Ashutoshnickie [facility] 04-09-2022 08:03-0500 Heart rate 62 /min [facility]utosh[facility]ie [facility] 04-09-2022 08:03-0500 Mean blood pressure 73 mm[Hg] Ashutoshnickie [facility] 04-09-2022 08:03-0500 Respiratory rate 18 /min [facility]utosh[facility]ie [facility] 04-09-2022 08:03-0500 SaO2% (BldA) [Mass fraction] 96 % [facility]utoshnickie [facility] 04-09-2022 08:03-0500 Systolic blood pressure 91 mm[Hg] [facility]utosh[facility]ie [facility] 04-09-2022 08:00-0500 Hourly Rounding Ashutosh [facility] 04-09-2022 08:00-0500 Promise to Return Ashutoshnickie [facility] 04-09-2022 04:30-0500 Blood Pressure Location Ashutoshnickie [facility] 04-09-2022 04:30-0500 Body temperature 96.8 [degF] Ashutoshnickie [facility] 04-09-2022 04:30-0500 BP/Pulse Patient Position Ashutoshnickie [facility] 04-09-2022 04:30-0500 Diastolic blood pressure 76 mm[Hg] Ashutosh [facility] 04-09-2022 04:30-0500 SaO2% (BldA) [Mass fraction] 95 % Ashutoshnickie [facility] 04-09-2022 04:30-0500 Systolic blood pressure 109 mm[Hg] Ashutosh [facility] 04-08-2022 22:36-0500 Blood Pressure Location Ashutoshnickie [facility] 04-08-2022 22:36-0500 Body temperature 97.16 [degF] Ashutoshnickie [facility] 04-08-2022 22:36-0500 BP/Pulse Patient Position Ashutoshnickie [facility] 04-08-2022 22:36-0500 Mean blood pressure 91 mm[Hg] Ashutosh [facility] 04-08-2022 22:36-0500 SaO2% (BldA) [Mass fraction] 97 % Ashutosh [facility] 04-08-2022 20:27-0500 Body temperature 97.7 [degF] Ashutosh [facility] 04-08-2022 20:27-0500 Mean blood pressure 97 mm[Hg] Ashutosh [facility] 04-08-2022 16:55-0500 Mean blood pressure 66 mm[Hg] Ashutosh [facility] 04-08-2022 12:18-0500 gluc 133 mg/dL Ashutosh [facility] 04-08-2022 11:39-0500 Body temperature 98.06 [degF] Ashutosh [facility] 04-08-2022 04:35-0500 Mean blood pressure 73 mm[Hg] Ashutosh [facility] 04-08-2022 04:00-0500 gluc 124 mg/dL Ashutosh [facility] 04-08-2022 01:00-0500 Mean blood pressure 70 mm[Hg] Ashutosh [facility] 04-07-2022 16:28-0500 gluc 383 mg/dL Ashutosh [facility] 04-07-2022 07:00-0500 Heart rate 80 /min Ashutosh [facility] 04-07-2022 03:54-0500 Heart rate 95 /min Ashutosh [facility] 04-07-2022 03:02-0500 Diastolic Blood Pressure Invasive 103 mm[Hg] Ashutosh [facility] 04-07-2022 03:02-0500 Heart rate 95 /min Ashutosh [facility] 04-07-2022 03:02-0500 Mean blood pressure 120 mm[Hg] Ashutosh [facility] 04-07-2022 03:02-0500 Respiratory rate 18 /min Ashutosh [facility] 04-07-2022 03:02-0500 Systolic blood pressure 153 mm[Hg] Ashutosh [facility] 04-07-2022 02:28-0500 Diastolic Blood Pressure Invasive 107 mm[Hg] Ashutosh [facility] 04-07-2022 02:28-0500 Mean blood pressure 119 mm[Hg] Ashutosh [facility] 04-07-2022 02:28-0500 Respiratory rate 12 /min Ashutosh [facility] 04-07-2022 02:28-0500 Systolic blood pressure 143 mm[Hg] Ashutosh [facility] 04-07-2022 01:05-0500 Diastolic Blood Pressure Invasive 98 mm[Hg] Ashutosh [facility] 04-07-2022 01:05-0500 Mean blood pressure 111 mm[Hg] Ashutosh [facility] 04-07-2022 01:05-0500 Respiratory rate 17 /min Ashutosh M[facility] 04-07-2022 01:05-0500 Systolic blood pressure 138 mm[Hg] Ashutosh [facility] 02-27-2022 17:30-0400 Diastolic blood pressure 93 mm[Hg] Gui [facility] 02-27-2022 17:30-0400 Heart rate 100 /min Gui [facility] 02-27-2022 17:30-0400 Mean blood pressure 103 mm[Hg] Gui [facility] 02-27-2022 17:30-0400 Respiratory rate 13 /min Gui Gil[facility] 02-27-2022 17:30-0400 SaO2% (BldA) [Mass fraction] 99 % Gui Gil[facility] 02-27-2022 17:30-0400 Systolic blood pressure 124 mm[Hg] Gui Gil[facility] 02-27-2022 17:00-0400 Diastolic blood pressure 148 mm[Hg] Gui Gil[facility] 02-27-2022 17:00-0400 Heart rate 92 /min Gui Gil[facility] 02-27-2022 17:00-0400 Mean blood pressure 151 mm[Hg] Gui Gil[facility] 02-27-2022 17:00-0400 SaO2% (BldA) [Mass fraction] 98 % Gui Gil[facility] 02-27-2022 17:00-0400 Systolic blood pressure 158 mm[Hg] Gui Gil[facility] 02-27-2022 16:30-0400 Diastolic blood pressure 112 mm[Hg] Gui Scha[facility] 02-27-2022 16:30-0400 Heart rate 96 /min Gui Scha[facility] 02-27-2022 16:30-0400 Mean blood pressure 130 mm[Hg] Gui Schafer [facility] 02-27-2022 16:30-0400 Respiratory rate 24 /min Gui Gil[facility] 02-27-2022 16:30-0400 SaO2% (BldA) [Mass fraction] 97 % Gui Schafer [facility] 02-27-2022 16:30-0400 Systolic blood pressure 167 mm[Hg] Gui Schafer [facility] 02-27-2022 12:31-0400 gluc 256 mg/dL Gui Scha[facility] 02-27-2022 12:31-0400 gluc Gui Schafer [facility] 02-27-2022 11:57-0400 Body temperature 97.88 [degF] Gui Schafer [facility] 02-27-2022 11:57-0400 Heart rate 99 /min Gui Schafre [facility] 02-27-2022 11:57-0400 Respiratory rate 18 /min Gui Gil[facility] 02-21-2022 14:53-0400 Body temperature 98.24 [degF] Santos [facility] 02-21-2022 14:53-0400 Diastolic blood pressure 110 mm[Hg] Santos [facility] 02-21-2022 14:53-0400 Heart rate 100 /min Santos V[facility] 02-21-2022 14:53-0400 Respiratory rate 18 /min Santos V[facility] 02-21-2022 14:53-0400 SaO2% (BldA) [Mass fraction] 97 % Santos V[facility] 02-21-2022 14:53-0400 Systolic blood pressure 177 mm[Hg] Santos [facility] 01-24-2022 14:21-0400 Diastolic blood pressure 101 mm[Hg] Preston Lugo [facility] 01-24-2022 14:21-0400 Heart rate 89 /min Preston Jonese [facility] 01-24-2022 14:21-0400 Mean blood pressure 113 mm[Hg] Preston Charli [facility] 01-24-2022 14:21-0400 Respiratory rate 16 /min Preston Charli [facility] 01-24-2022 14:21-0400 SaO2% (BldA) [Mass fraction] 99 % Preston Charli [facility] 01-24-2022 14:21-0400 Systolic blood pressure 136 mm[Hg] Preston Charli [facility] 01-24-2022 12:55-0400 Diastolic blood pressure 100 mm[Hg] Preston Charli [facility] 01-24-2022 12:55-0400 Heart rate 87 /min Preston Charli [facility] 01-24-2022 12:55-0400 Mean blood pressure 112 mm[Hg] Preston Charli [facility] 01-24-2022 12:55-0400 Respiratory rate 16 /min Preston Jonese [facility] 01-24-2022 12:55-0400 SaO2% (BldA) [Mass fraction] 99 % Preston Charli [facility] 01-24-2022 12:55-0400 Systolic blood pressure 137 mm[Hg] Preston Jones[facility] 01-24-2022 12:30-0400 Hourly Rounding Preston Jonese [facility] 01-24-2022 12:30-0400 Promise to Return Preston Jonese [facility] 01-24-2022 10:46-0400 Body temperature 98.78 [degF] Preston Jonese [facility] 01-24-2022 10:46-0400 Diastolic blood pressure 86 mm[Hg] Preston Jonese [facility] 01-24-2022 10:46-0400 Heart rate 89 /min Preston Charli [facility] 01-24-2022 10:46-0400 Mean blood pressure 100 mm[Hg] Preston Charli [facility] 01-24-2022 10:46-0400 Respiratory rate 18 /min Preston Jonese [facility] 01-24-2022 10:46-0400 SaO2% (BldA) [Mass fraction] 99 % Preston Char[facility] 01-24-2022 10:46-0400 Systolic blood pressure 129 mm[Hg] Preston Char[facility] 01-09-2022 22:00-0400 Hourly Rounding [facility] 01-09-2022 22:00-0400 Promise to Return [facility] 01-09-2022 21:47-0400 Hourly Rounding [facility] 01-09-2022 21:47-0400 Promise to Return [facility] 01-09-2022 20:00-0400 Hourly Rounding [facility] 01-09-2022 20:00-0400 Promise to Return [facility] 01-09-2022 18:00-0400 Diastolic blood pressure 98 mm[Hg] [facility] 01-09-2022 18:00-0400 Heart rate 94 /min [facility] 01-09-2022 18:00-0400 Mean blood pressure 115 mm[Hg] [facility] 01-09-2022 18:00-0400 SaO2% (BldA) [Mass fraction] 98 % [facility] 01-09-2022 18:00-0400 Systolic blood pressure 149 mm[Hg] [facility] 01-09-2022 15:38-0400 Body temperature 98.78 [degF] [facility] 01-09-2022 15:38-0400 Diastolic blood pressure 129 mm[Hg] [facility] 01-09-2022 15:38-0400 Heart rate 92 /min [facility] 01-09-2022 15:38-0400 SaO2% (BldA) [Mass fraction] 99 % [facility] 01-09-2022 15:38-0400 Systolic blood pressure 168 mm[Hg] [facility] 01-09-2022 15:32-0400 SaO2% (BldA) [Mass fraction] 99 % [facility] 01-09-2022 15:28-0400 Blood Pressure Location [facility] 01-09-2022 15:28-0400 BP/Pulse Patient Position [facility] 01-09-2022 15:28-0400 Diastolic blood pressure 129 mm[Hg] [facility] 01-09-2022 15:28-0400 Heart rate 92 /min [facility] 01-09-2022 15:28-0400 Mean blood pressure 142 mm[Hg] [facility] 01-09-2022 15:28-0400 Systolic blood pressure 168 mm[Hg] [facility] 01-09-2022 14:56-0400 Heart rate 93 /min [facility] 01-09-2022 14:56-0400 Mean blood pressure 133 mm[Hg] [facility] 01-09-2022 14:56-0400 Respiratory rate 16 /min [facility] 01-09-2022 14:15-0400 Respiratory rate 18 /min [facility] 01-09-2022 14:00-0400 Mean blood pressure 158 mm[Hg] [facility] 01-09-2022 13:20-0400 Heart rate 97 /min [facility] 01-09-2022 12:45-0400 Heart rate 102 /min [facility] 01-09-2022 12:15-0400 Body temperature 97.88 [degF] [facility] 01-09-2022 12:15-0400 Respiratory rate 20 /min [facility] 12-12-2021 16:48-0400 Blood Pressure Location Breanna Riccardo [facility] 12-12-2021 16:48-0400 Body temperature 98.06 [degF] Breanna Riccardo [facility] 12-12-2021 16:48-0400 Diastolic blood pressure 82 mm[Hg] Breanna Gu [facility] 12-12-2021 16:48-0400 Heart rate 100 /min Breanna Gu [facility] 12-12-2021 16:48-0400 SaO2% (BldA) [Mass fraction] 97 % Breanna Gu [facility] 12-12-2021 16:48-0400 Systolic blood pressure 136 mm[Hg] Breanna Gu [facility] 12-08-2021 15:56-0400 Diastolic blood pressure 75 mm[Hg] Antoine Sosa MD Work Phone: [facility] [employer] 12-08-2021 15:56-0400 Heart rate 100 /min Antoine Sosa MD Work Phone: [employer] 12-08-2021 15:56-0400 Respiratory rate 16 /min Antoine Sosa MD Work Phone: [employer] 12-08-2021 15:56-0400 SaO2% (BldA) [Mass fraction] 98 % Antoine Sosa MD Work Phone: [employer] 12-08-2021 15:56-0400 Systolic blood pressure 104 mm[Hg] Antoine Sosa MD Work Phone: [employer] [employer] 12-08-2021 15:19-0400 Body height 157.5 cm Antoine Sosa MD Work Phone: [employer] 12-08-2021 15:19-0400 Body mass index (BMI) [Ratio] 45.73 kg/m2 Antoine Sosa MD Work Phone: [employer] 12-08-2021 15:19-0400 Body temperature 98.6 [degF] Antoine Sosa MD Work Phone: [facility] 12-08-2021 15:19-0400 Body weight 113.4 kg Antoine Sosa MD Work Phone: [facility] 12-08-2021 12:44-0400 Diastolic blood pressure 108 mm[Hg] Santos Josh [facility] 12-08-2021 12:44-0400 Heart rate 99 /min Santos Josh [facility] 12-08-2021 12:44-0400 Mean blood pressure 127 mm[Hg] Santos Josh [facility] 12-08-2021 12:44-0400 Respiratory rate 17 /min Santos Josh [facility] 12-08-2021 12:44-0400 SaO2% (BldA) [Mass fraction] 98 % Santos Josh [facility] 12-08-2021 12:44-0400 Systolic blood pressure 166 mm[Hg] Santos Josh [facility] 12-08-2021 12:20-0400 Diastolic blood pressure 83 mm[Hg] Santos Josh [facility] 12-08-2021 12:20-0400 Heart rate 88 /min Santos Josh [facility] 12-08-2021 12:20-0400 Mean blood pressure 93 mm[Hg] Santos Josh [facility] 12-08-2021 12:20-0400 Respiratory rate 17 /min Santos Josh [facility] 12-08-2021 12:20-0400 Respiratory rate 18 /min Santos Josh [facility] 12-08-2021 12:20-0400 SaO2% (BldA) [Mass fraction] 99 % Santos Josh [facility] 12-08-2021 12:20-0400 Systolic blood pressure 114 mm[Hg] Santos Josh [facility] 12-08-2021 11:41-0400 Diastolic blood pressure 87 mm[Hg] Santos Josh [facility] 12-08-2021 11:41-0400 Heart rate 89 /min Santos Josh [facility] 12-08-2021 11:41-0400 Mean blood pressure 99 mm[Hg] Santos Josh [facility] 12-08-2021 11:41-0400 Respiratory rate 18 /min Santos Josh [facility] 12-08-2021 11:41-0400 SaO2% (BldA) [Mass fraction] 99 % Santos Josh [facility] 12-08-2021 11:41-0400 Systolic blood pressure 122 mm[Hg] Santos Josh [facility] 12-08-2021 10:01-0400 Body temperature 97.7 [degF] Santos Josh [facility] 12-08-2021 10:01-0400 Heart rate 101 /min Santos Josh [facility] 12-08-2021 10:01-0400 Respiratory rate 18 /min Santos Josh [facility] 11-06-2021 13:03-0400 Hourly Rounding Sergio Rivas [facility] 11-06-2021 13:03-0400 [facility] 11-06-2021 12:05-0400 [facility] 11-06-2021 12:05-0400 [facility] 11-06-2021 11:05-[address] [facility] 11-06-2021 11:05-0400 [facility] 11-06-2021 11:00-0400 Diastolic blood pressure 72 mm[Hg] [facility] 11-06-2021 11:00-0400 Heart rate 72 /min [facility] 11-06-2021 11:00-0400 SaO2% (BldA) [Mass fraction] 98 % [facility] 11-06-2021 11:00-0400 Systolic blood pressure 142 mm[Hg] [facility] 11-06-2021 08:04-0400 Body temperature 98.06 [degF] [facility] 11-06-2021 08:04-0400 Diastolic blood pressure 97 mm[Hg] [facility] 11-06-2021 08:04-0400 Heart rate 94 /min [facility] 11-06-2021 08:04-0400 Mean blood pressure 122 mm[Hg] [facility] 11-06-2021 08:04-0400 SaO2% (BldA) [Mass fraction] 99 % [facility] 11-06-2021 08:04-0400 Systolic blood pressure 171 mm[Hg] [facility] 11-06-2021 08:00-[address] [facility] 11-06-2021 08:00-0400 BP/Pulse [facility] 11-05-2021 23:33-0400 FIO2 21 % [facility] 11-05-2021 23:33-0400 Heart rate 60 /min [facility] 11-05-2021 23:33-0400 Respiratory rate 12 /min [facility] 11-05-2021 23:33-0400 SaO2% (BldA) [Mass fraction] 97 % [facility] 11-05-2021 23:00-0400 Body temperature 97.88 [degF] [facility] 11-05-2021 23:00-0400 Diastolic blood pressure 66 mm[Hg] perfectol[facility] 11-05-2021 23:00-0400 Systolic blood pressure 94 mm[Hg] [facility] 11-05-2021 20:41-0400 Mean blood pressure 109 mm[Hg] [facility] 11-05-2021 20:23-0400 Respiratory rate 18 /min [facility] 11-05-2021 15:53-0400 [facility] 11-05-2021 15:53-0400 BP/Pulse [facility] [facility] 11-05-2021 15:53-0400 Mean blood pressure 105 mm[Hg] [facility]05[facility]21 14:57-0400 Heart rate 104 /min [facility] 11-05-2021 11:08-0400 [facility] 11-05-2021 11:08-0400 BP/Pulse [facility] 11-05-2021 00:25-0400 Heart rate 65 /min [facility] 11-05-2021 00:25-0400 Mean blood pressure 59 mm[Hg] [facility] 11-04-2021 19:15-0400 Mean blood pressure 104 mm[Hg] [facility] 11-04-2021 18:49-0400 Heart rate 112 /min [facility] 11-04-2021 17:44-0400 Mean blood pressure 91 mm[Hg] [facility] 10-09-2021 17:57-0400 Diastolic blood pressure 87 mm[Hg] Santos Ag[facility] 10-09-2021 17:57-0400 Heart rate 102 /min Santos Agustin [facility] 10-09-2021 17:57-0400 Mean blood pressure 105 mm[Hg] Santos Agustin [facility] 10-09-2021 17:57-0400 Respiratory rate 16 /min Santos Agustin [facility] 10-09-2021 17:57-0400 SaO2% (BldA) [Mass fraction] 97 % Santos Agustin [facility] 10-09-2021 17:57-0400 Systolic blood pressure 141 mm[Hg] Santos Velez [facility] 10-09-2021 17:40-0400 Hourly Rounding Santos Velez [facility] 10-09-2021 17:40-0400 Promise to Return Santos Velez [facility] 10-09-2021 17:38-0400 Diastolic blood pressure 88 mm[Hg] Santos Agustin [facility] 10-09-2021 17:38-0400 Heart rate 104 /min Santos Agustin [facility] 10-09-2021 17:38-0400 Mean blood pressure 105 mm[Hg] Santos Agutsin [facility] 10-09-2021 17:38-0400 Respiratory rate 16 /min Santos Agustin [facility] 10-09-2021 17:38-0400 SaO2% (BldA) [Mass fraction] 96 % Santos Agustin [facility] 10-09-2021 17:38-0400 Systolic blood pressure 140 mm[Hg] Santos Agustin [facility] 10-09-2021 16:10-0400 Diastolic blood pressure 75 mm[Hg] Santos Agustin [facility] 10-09-2021 16:10-0400 Heart rate 107 /min Santos Agustin [facility] 10-09-2021 16:10-0400 Hourly Rounding Santos Agustin [facility] 10-09-2021 16:10-0400 Mean blood pressure 97 mm[Hg] Santos Agustin [facility] 10-09-2021 16:10-0400 Promise to Return Santos Velez [facility] 10-09-2021 16:10-0400 Respiratory rate 16 /min Santos Agustin [facility] 10-09-2021 16:10-0400 SaO2% (BldA) [Mass fraction] 96 % Santos Agustin [facility] 10-09-2021 16:10-0400 Systolic blood pressure 141 mm[Hg] Santos Agustin [facility] 10-09-2021 15:29-0400 Body temperature 98.6 [degF] Santos Agustin [facility] 10-09-2021 15:29-0400 Heart rate 109 /min Santos Velez [facility] 09-30-2021 13:53-0400 Blood Pressure Location Breanna Gu [facility] 09-30-2021 13:53-0400 Body temperature 97.7 [degF] Breanna Herediaell [facility] 09-30-2021 13:53-0400 Diastolic blood pressure 70 mm[Hg] Breanna Herediaell [facility] 09-30-2021 13:53-0400 Heart rate 72 /min Breanna Herediaell [facility] 09-30-2021 13:53-0400 SaO2% (BldA) [Mass fraction] 98 % Breanna Gu [facility] 09-30-2021 13:53-0400 Systolic blood pressure 122 mm[Hg] Breanna Herediaell [facility] 09-02-2021 14:55-0400 Blood Pressure Location Kirk Abbott [facility] 09-02-2021 14:55-0400 Diastolic blood pressure 76 mm[Hg] Kirk Motterson [facility] 09-02-2021 14:55-0400 Heart rate 67 /min Kirk Motterson [facility] 09-02-2021 14:55-0400 Respiratory rate 18 /min Kirk Abbott [facility] 09-02-2021 14:55-0400 SaO2% (BldA) [Mass fraction] 100 % Kirk Abbott [facility] 09-02-2021 14:55-0400 Systolic blood pressure 109 mm[Hg] Kirk Abbott [facility] 06-14-2021 19:00-0500 Body height 157.48 cm Herlinda Callahanmond Other [employer] Other 06-14-2021 19:00-0500 Body mass index (BMI) [Ratio] 42.06 kg/m2 Herlinda Callahanmond Other [employer] Other 06-14-2021 19:00-0500 Body temperature 96.1 [degF] Herlinda Callahanmond Other [employer] Other 06-14-2021 19:00-0500 Body weight 104.33 kg Herlinda Callahanmond Other [employer] Other 06-14-2021 19:00-0500 SaO2% (BldA) [Mass fraction] 97 % Herlinda Shaylee Other [employer] Other 06-05-2020 15:11-0500 Body Temperature 97.9 [degF] [facility] 06-05-2020 15:11-0500 BP Diastolic 77 mm[Hg] [facility] 06-05-2020 15:11-0500 BP Systolic 110 mm[Hg] [facility] 06-05-2020 15:11-0500 Pulse (Heart Rate) 79 /min [facility] 06-05-2020 15:11-0500 Pulse Oximetry 96 % [facility] 06-05-2020 15:11-0500 Respiratory Rate 15 /min Ko Hankins [facility] 06-03-2020 14:24-0500 BMI (Body Mass Index) 48.29 kg/m2 Ko Hankins [facility] 06-03-2020 14:24-0500 Body weight 119.75 kg Ko Hankins [facility] 06-03-2020 14:24-0500 Height 157.5 cm Ko Hankins [facility] 09-09-2018 13:59-0400 Body Temperature 97.3 [degF] [facility] 13:59-0400 BP Diastolic 83 mm[Hg] [facility] 09-09-2018 13:59-0400 BP Systolic 113 mm[Hg] [facility] 09-09-2018 13:59-0400 Pulse (Heart Rate) 98 /min Shamekacheng Baum [facility] 09-09-2018 13:59-0400 Pulse Oximetry 100 % Shamekacheng Baum [facility] 09-09-2018 13:59-0400 Respiratory Rate 16 /min [facility] 09-09-2018 08:00-0400 Body weight 110.[address] [facility] 09-07-2018 14:20-0400 Height 157.48 cm [facility] 09-06-2018 19:43-0400 BMI (Body Mass Index) 42.1 kg/m2 [facility] 06-26-2017 21:27-0500 BP Diastolic 105 mm[Hg] Michi San [facility] Work Phone: 06-26-2017 21:27-0500 BP Systolic 122 mm[Hg] Michi San [facility] Work Phone: 06-26-2017 21:27-0500 Pulse (Heart Rate) 91 /min Michi San [facility] Work Phone: 06-26-2017 21:27-0500 Pulse Oximetry 100 % Michi San [facility] Work Phone: 06-26-2017 21:27-0500 Respiratory Rate 17 /min Michi San [facility] Work Phone: 06-26-2017 18:34-0500 BMI (Body Mass Index) 36.58 kg/m2 Michi San [facility] Work Phone: 06-26-2017 18:34-0500 Body Temperature 98.4 [degF] Michi San [facility] Work Phone: 06-26-2017 18:34-0500 Height 157.5 cm Michi San [facility] Work Phone: 06-26-2017 18:34-0500 Weight 90.72 kg Michi San [facility] Work Phone: Encounters Encounter Date Encounter Type Care Provider Facility Start: 02-24-2025 End: 02-24-2025 Documentation procedure Jay Peralta MA [facility] Comment on above: [employer] DME Start: 02-23-2025 End: 02-23-2025 Office outpatient visit 25 minutes Mihai Elizalde CNP Work Phone: [facility] [place] Comment on above: Lumbar stenosis with neurogenic claudication (Primary Dx); Left hand pain; Fall, initial encounter; Lumbar radiculopathy; Chronic pain syndrome; Myofascial pain syndrome; Degeneration of intervertebral disc of lumbar region with discogenic back pain and lower extremity pain Start: 02-23-2025 End: 02-23-2025 ambulatory PROVIDER NOT IN SYSTEM [facility] Start: 02-22-2025 ambulatory Mary Law Facility:[facility] Start: 02-20-2025 End: 02-20-2025 ambulatory Andrés Lopez DO Work Phone: [facility] Work Phone: Start: 02-20-2025 End: 02-20-2025 Patient encounter procedure Andrés Lopez DO -[facility] Work Phone: Start: 02-03-2025 End: 02-03-2025 ambulatory KJ DUDLEY [facility] Start: 02-02-2025 End: 02-02-2025 Bamboo flowsheet Sergio Resendez MD Work Phone: [facility] Start: 02-02-2025 End: 02-02-2025 Bamboo flowsheet Sergio Resendez MD Work Phone: [facility] Start: 02-02-2025 End: 02-02-2025 Office outpatient new 45 minutes Sergio Resendez MD Work Phone: [facility] Comment on above: Type 2 diabetes symone itus with hyperglycemia, with long-term current use of insulin (HCC) (Primary Dx); Encounter for dietary consultation; Insulin long-term use (HCC); Class 3 severe obesity due to excess calories with serious comorbidity and body mass index (BMI) of 45.0 to 49.9 in adult ([facility]-HCC); Hyperlipemia, mixed ; Vitamin D deficiency; Primary hypertension ; Encounter for fitting or adjustment of insulin pump Start: 02-02-2025 End: 02-02-2025 ambulatory SERGIO RESENDEZ Not Available Start: 01-09-2025 End: 01-09-2025 ambulatory AURA PATEL Facility[place] Start: 12-28-2024 End: 12-28-2024 ambulatory Ben Horn [facility] Work Phone: Start: 12-28-2024 End: 12-28-2024 Departed Referred Ben Long DO -[facility] Start: 12-19-2024 End: 12-22-2024 Refill Jim Velez DO Work Phone: [facility] Comment on above: Chronic pain syndrom e; DDD (degenerative disc disease), lumbar; Lumbar radiculopathy Start: 12-06-2024 End: 12-06-2024 Telephone encounter Addie Chavira MA [facility] Medication Management Start: 12-02-2024 End: 12-05-2024 Evaluation and management of inpatient Vanessa Vargas MD Work Phone: [facility] - GEN 8 Acute Comment on above: HHS (hypothenar zeus er syndrome) (Primary Dx); Hyperosmolar hyperglycemic state (HHS) (CMS-HCC) Start: 12-02-2024 ambulatory RADHA DIAS [facility] Start: 11-21-2024 End: 11-21-2024 Refill Jim Velez DO Work Phone: [facility] Comment on above: DDD (degenerative di sc disease), lumbar; Lumbar radiculopathy; Chronic pain syndrome Start: 11-04-2024 End: 11-04-2024 Patient encounter procedure Jessica Romeo PA-C Work Phone: [facility] Comment on above: No-show for appointm ent (Primary Dx) Start: 11-04-2024 ambulatory [facility] Start: 10-11-2024 End: 10-11-2024 Orders Only Jim Velez DO Work Phone: [facility] Start: 10-06-2024 End: 10-11-2024 Refill Jim Velez DO Work Phone: [facility] Comment on above: Chronic pain syndrom e Start: 10-03-2024 [facility] 10-02-[facility] Start: 10-01-2024 Evaluation and management of inpatient [facility] Start: 10-01-2024 Evaluation and management of inpatient [facility] Start: 10-01-2024 End: 10-05-2024 Evaluation and management of inpatient CARISA T LINSEY [facility] Start: 09-29-2024 End: 09-29-2024 Documentation procedure Jay Peralta MA [facility] Comment on above: [employer] Start: 09-28-2024 ambulatory JIM VELEZ [facility] Start: 09-23-2024 End: 11-23-2024 Refill Jim Velez DO Work Phone: [facility] Comment on above: Chronic pain syndrom e 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 (Primary Dx); Lumbar radiculopathy; Chronic pain syndrome Levetiracetam Level Start: 09-23-2024 End: 09-23-2024 Office outpatient visit 25 minutes Jim Velez DO Work Phone: [facility] Comment on above: Myofascial pain synd sudarshan (Primary Dx); DDD (degenerative disc disease), lumbar; Lumbar radiculopathy; Chronic pain syndrome Start: 09-23-2024 End: 09-23-2024 ambulatory STEPHANY WALTER [facility] Start: 09-22-2024 End: 09-22-2024 Emergency department patient visit [facility] Start: 09-22-2024 End: 10-07-2024 Documentation procedure Karon Beard PA-C Work Phone: [facility] Physicians Comment on above: Chronic pain syndrom e Start: 09-22-2024 ambulatory JIM VELEZ [facility] Start: 09-18-2024 End: 09-18-2024 Emergency department patient visit [facility] Start: 08-29-2024 End: 08-29-2024 Emergency department patient visit No Doctor [facility] Start: 08-24-2024 End: 08-24-2024 Documentation procedure Mihai Elizalde CNP Work Phone: [facility] Start: 08-18-2024 End: 08-19-2024 Orders Only Mery Robles MD Work Phone: [facility] Orthoped[facility] Comment on above: Pain in both knees, unspecified chronicity (Primary Dx) DDD (degenerative di sc disease), lumbar; Lumbar radiculopathy; Chronic pain syndrome Start: 08-08-2024 End: 08-09-2024 Orders Only Agapito Schuler PA-C Work Phone: [facility] Spine Surgery Comment on above: Lumbar pain (Primary Dx) Start: 08-04-2024 End: 08-04-2024 Documentation procedure Rafaela Castillo MA [facility] Comment on above: Pulse ox Start: 08-02-2024 End: 08-02-2024 ambulatory [facility] Start: 08-02-2024 End: 08-02-2024 Office outpatient visit 25 minutes Stephany Pelayo PA-C Work Phone: [facility] Comment on above: [...] type; History of stroke; Seizures (HCC); Hypercholesterolemia; Urinary incontinence, unspecified type; Gastroesophageal reflux disease, unspecified whether esophagitis present; Family history of pulmonary fibrosis; Candidiasis of breast; Insomnia, unspecified type; Vitamin B12 deficiency; Vitamin D deficiency; Encounter for screening mammogram for malignant neoplasm of breast; Encounter for health-related screening Start: 08-02-2024 End: 08-02-2024 ambulatory [facility] Start: 07-21-2024 End: 07-21-2024 Documentation procedure Rafaela Castillo MA [facility] Comment on above: shower chair Start: 07-15-2024 End: 07-15-2024 Office outpatient visit 25 minutes Stephany Pelayo PA-C Work Phone: [facility] Comment on above: Seizures (HCC) (Prim margoth Dx); Chronic nonintractable headache, unspecified headache type; Primary hypertension; Sick sinus syndrome (HCC); Type 2 diabetes mellitus with diabetic polyneuropathy, with long-term current use of insulin (HCC); Gastroesophageal reflux disease, unspecified whether esophagitis present Start: 07-15-2024 End: 07-15-2024 ambulatory STEPHANY PELAYO [facility] Start: 07-12-2024 End: 07-25-2024 Refill Mihai Elizalde [employer]IV[employer] CLERK Work Phone: [facility] [place] Comment on above: DDD (degenerative di sc disease), lumbar; Lumbar radiculopathy; Chronic pain syndrome Start: 07-05-2024 End: 07-05-2024 Bamboo flowsheet Soto D Dolce DPM FACFAS Work Phone: [facility] Start: 07-05-2024 End: 07-05-2024 Bamboo flowsheet Soto Lauren Dolce DPM FACFAS Work Phone: [facility] Start: 07-05-2024 End: 07-05-2024 Office outpatient visit 15 minutes Soto Lauren Bhandarice DPM FACFAS Work Phone: [facility] Comment on above: Type II diabetes lupe litus with neurological manifestations (CMS/HCC) (Primary Dx); Chronic foot ulcer with fat layer exposed, left (CMS/HCC); Cellulitis of left foot Start: 07-05-2024 End: 07-05-2024 ambulatory SOTO BOX Not Available Start: 06-10-2024 End: 06-23-2024 Refill Mihia Elizalde [employer]IV[employer] CLERK Work Phone: [facility] [place] Comment on above: Chronic pain syndrom e; DDD (degenerative disc disease), lumbar; Lumbar radiculopathy Start: 06-06-2024 End: 06-07-2024 Documentation procedure Rafaela Castillo MA [facility] Comment on above: incontinence supplie s Start: 05-31-2024 End: 05-31-2024 Documentation procedure Karon Meng LPN [facility] Start: 05-27-2024 End: 05-27-2024 Refill Stephany Pelayo PA-C Work Phone: [facility] Comment on above: Bipolar 1 disorder ( HCC); Insomnia, unspecified type Start: 05-23-2024 End: 05-23-2024 Emergency department patient visit SHAMEKA PALOMO [facility] Start: 05-13-2024 End: 05-13-2024 Office outpatient visit 25 minutes Mihai Elizalde [employer]IV[employer] CLERK Work Phone: [facility] Comment on above: Lumbar radiculopathy (Primary Dx); Chronic pain syndrome; DDD (degenerative disc disease), lumbar; Encounter for monitoring opioid maintenance therapy; Other chronic pain; Myofascial pain syndrome Start: 05-13-2024 End: 05-13-2024 ambulatory STEPHANY PELAYO [facility] Start: 04-28-2024 End: 04-29-2024 Refill Mihai Elizalde [employer]IV[employer] CLERK Work Phone: [facility] Comment on above: Chronic pain syndrom e Start: 04-26-2024 End: 04-29-[address] [facility] Start: 04-26-2024 End: 04-29-2024 Evaluation and management of inpatient Jacoby Dooley MD Work Phone: [facility] Start: 04-12-2024 End: 04-13-2024 Refill Jim Velez DO Work Phone: [facility] [place] Comment on above: DDD (degenerative di sc disease), lumbar; Lumbar radiculopathy Chronic pain syndrom e Start: 03-30-2024 End: 03-30-2024 Documentation procedure Maite Adams LPN [facility] Endocrinology Comment on above: [facility] Start: 03-25-2024 End: 03-25-2024 Orders Only Stephany Pelayo PA-C Work Phone: [facility] Start: 03-24-2024 End: 04-04-2024 Evaluation and management of inpatient Ko Aaron MD Work Phone: [facility] Surgical [facility] [place] Start: 03-24-2024 End: 03-24-2024 Orders Only Stephany Pelayo PA-C Work Phone: [facility] Start: 03-22-2024 End: 03-22-2024 Office outpatient visit 25 minutes Stephany Pelayo PA-C Work Phone: [facility] Comment on above: Primary hypertension (Primary Dx); Diarrhea, unspecified type; Abdominal cramping; Abdominal wound dehiscence, initial encounter; Bipolar 1 disorder (HCC); Seizures (HCC); Chronic pain of both knees; Urinary incontinence, unspecified type; Candidiasis; Abnormal pigmentation of skin Start: 03-22-2024 End: 03-25-2024 Refill Jim Velez DO Work Phone: [facility] Comment on above: Chronic pain syndrom e Start: 03-08-2024 End: 03-10-2024 Refill Mihai Elizalde CNP Work Phone: [facility] Comment on above: DDD (degenerative di sc disease), lumbar; Lumbar radiculopathy Start: 02-11-2024 End: 02-15-2024 ambulatory [facility] Start: 02-11-2024 End: 02-11-2024 Office outpatient visit 25 minutes Stephany Pelayo PA-C Work Phone: [facility] Comment on above: [...] dependence without complication; Need for vaccination Start: 02-08-2024 End: 02-08-2024 Refill Laura Child MA [facility] Psych Comment on above: Bipolar 1 disorder ( HCC); Insomnia, unspecified type Start: 02-04-2024 End: 02-04-2024 Orders Only Jim Velez DO Work Phone: [facility] Comment on above: DDD (degenerative di sc disease), lumbar; Lumbar radiculopathy Start: 02-03-2024 End: 02-03-2024 Refill Jim Velez DO Work Phone: [facility] Comment on above: DDD (degenerative di sc disease), lumbar; Lumbar radiculopathy Start: 02-02-2024 End: 02-02-2024 Office outpatient visit 25 minutes Jim Velez DO Work Phone: [facility] Comment on above: Chronic pain syndrom e (Primary Dx); DDD (degenerative disc disease), lumbar; Lumbar radiculopathy; Other chronic pain; Myofascial pain syndrome; Debilitated patient Start: 01-27-2024 End: 01-28-2024 ambulatory Swapnil Hooks [facility] Comment on above: Chronic pain syndrom e Start: 01-27-2024 End: 01-27-2024 Transitional care manage srvc 14 day discharge Rafaela Medrano CNP Work Phone: [facility] Comment on above: Diabetic ulcer of ri ght foot associated with type 2 diabetes mellitus, unspecified part of foot, unspecified ulcer stage (HCC) (Primary Dx); Primary hypertension; SOLO (acute kidney injury) (HCC); Hypothyroidism, unspecified type; Hyperlipidemia, unspecified hyperlipidemia type Start: 01-12-2024 End: 01-18-2024 Evaluation and management of inpatient Jacoby Dooley MD Work Phone: [facility] Start: 01-12-2024 End: 01-12-2024 Office outpatient visit 25 minutes Stephany Pelayo PA-C Work Phone: [facility] Comment on above: Diabetic ulcer of le ft great toe (HCC) (Primary Dx) Start: 01-11-2024 End: 01-13-2024 Refill Jim Velez DO Work Phone: [facility] Comment on above: DDD (degenerative di sc disease), lumbar; Lumbar radiculopathy; Muscle spasms of both lower extremities Start: 01-09-2024 End: 01-10-2024 Emergency department patient visit [facility] Start: 12-21-2023 End: 12-22-2023 Refill Mihai Elizalde CNP Work Phone: [facility] Comment on above: Chronic pain syndrom e Start: 12-14-2023 End: 12-14-2023 Documentation procedure Rafaela Castillo MA [facility] Comment on above: nebulizer supplies Start: 12-08-2023 End: 12-08-2023 Office outpatient new 45 minutes Stephany Pelayo PA-C Work Phone: [facility] [place] Comment on above: Chronic pain syndrom e (Primary Dx); Muscle spasms of both lower extremities; DDD (degenerative disc disease), lumbar; Lumbar radiculopathy; Other chronic pain; Myofascial pain syndrome; Debilitated patient Start: 12-08-2023 End: 12-10-2023 Refill Moo Pressley MA [facility] End[facility] Start: 12-07-2023 End: 12-07-2023 Emergency department patient visit [facility] Start: 12-07-2023 End: 12-08-2023 Refill Moo Pressley MA [facility] Comment on above: Type 2 diabetes symone itus with diabetic polyneuropathy, with long-term current use of insulin (HCC) Start: 12-03-2023 End: 12-03-2023 Refill Sahara Sanchez MD Work Phone: [facility] Comment on above: Type 2 diabetes symone itus with diabetic polyneuropathy, with long-term current use of insulin (HCC) Start: 12-02-2023 End: 12-03-2023 Refill Maite Adams LPN [facility] Comment on above: Type 2 diabetes symone itus with diabetic polyneuropathy, with long-term current use of insulin (HCC) (Primary Dx) Start: 12-02-2023 End: 12-02-2023 Office outpatient new 60 minutes Stephany Pelayo PA-C Work Phone: [facility] Comment on above: Type 2 diabetes symone itus with diabetic polyneuropathy, with long-term current use of insulin (HCC) (Primary Dx); Proliferative diabetic retinopathy associated with type 2 diabetes mellitus, unspecified laterality, unspecified proliferative retinopathy type (HCC); Dyslipidemia; Essential hypertension; Obesity, unspecified classification, unspecified obesity type, unspecified whether serious comorbidity present Start: 12-01-2023 End: 12-01-2023 Office outpatient visit 25 minutes Stephany Pelayo PA-C Work Phone: [facility] Comment on above: Primary hypertension (Primary Dx); Upper respiratory tract infection, unspecified type; Chronic obstructive pulmonary disease, unspecified COPD type (HCC); Family history of pulmonary fibrosis; Retinal hemorrhage of left eye Start: 11-12-2023 Refill Stephany ro PA-C Work Phone: [facility] Comment on above: Muscle spasms of bot h lower extremities; Type 2 diabetes mellitus with diabetic polyneuropathy, with long-term current use of insulin (HCC) Start: 11-09-2023 End: 11-09-2023 Office outpatient new 45 minutes Anders London MD Work Phone: [facility] Comment on above: Vision loss of left eye (Primary Dx); Ocular hypertension of left eye; Proliferative diabetic retinopathy of left eye associated with type 2 diabetes mellitus, unspecified proliferative retinopathy type; Nonproliferative diabetic retinopathy of right eye; Pseudophakia; Dry eye syndrome of bilateral lacrimal glands Start: 10-30-2023 Refill Zoë willoughby MD Work Phone: [facility] Psych Start: 10-29-2023 End: 01-12-2024 Orders Only Shaye Gloria MA [facility] Start: 10-28-2023 Orders Only Stephany ro PA-C Work Phone: [facility] Comment on above: Subacute cough (Prim margoth Dx); Family history of pulmonary fibrosis Start: 10-23-2023 Orders Only Shameka Hallman own DPM Work Phone: [facility] Start: 10-13-2023 End: 10-13-2023 Office outpatient visit 25 minutes Stephany Pelayo PA-C Work Phone: [facility] Comment on above: Primary hypertension (Primary Dx); Subacute cough; RUQ abdominal pain; Type 2 diabetes mellitus with diabetic polyneuropathy, with long-term current use of insulin (HCC); Family history of pulmonary fibrosis Start: 10-07-2023 End: 10-07-2023 Office outpatient visit 25 minutes Zoë Garcia MD Work Phone: [facility] Comment on above: Bipolar 1 disorder ( HCC) (Primary Dx); Post traumatic stress disorder (PTSD); Generalized anxiety disorder; Insomnia, unspecified type Start: 10-07-2023 Documentation procedure Magnolia Chavira LPN [facility] Start: 10-06-2023 Refill Stephany ro PA-C Work Phone: [facility] Comment on above: Muscle spasms of bot h lower extremities Start: 09-22-2023 Orders Only Shameka Hallman own DPM Work Phone: [facility] Comment on above: Right foot ulcer, wi th fat layer exposed (HCC) (Primary Dx) Start: 09-16-2023 End: 09-16-2023 Office outpatient visit 40 minutes Virgen Campos MD Work Phone: [facility] Neurology Comment on above: Hearing loss of left ear, unspecified hearing loss type (Primary Dx); Lacunar stroke (HCC); Seizure (HCC) Start: 09-15-2023 Refill Laura Child MA [facility] Start: 09-10-2023 Documentation procedure Rafaela rockwell MA [facility] Comment on above: DME Start: 09-07-2023 Refill Maye Ramirez LPN [facility] Comment on above: Muscle spasms of bot h lower extremities Start: 09-03-2023 End: 09-03-2023 Periodic preventive med est patient 40-64yrs Stephany Pelayo PA-C Work Phone: [facility] Comment on above: Chronic pain syndrom e (Primary Dx); Muscle spasms of both lower extremities; Urinary incontinence, unspecified type; Chronic nonintractable headache, unspecified headache type; Chronic obstructive pulmonary disease, unspecified COPD type ([facility]); Type 2 diabetes mellitus with diabetic polyneuropathy, with long-term current use of insulin ([facility]); Diabetic peripheral neuropathy ([facility]); Diabetic ulcer of right foot associated with type 2 diabetes mellitus, unspecified part of foot, unspecified ulcer stage ([facility]); Hypothyroidism, unspecified type; Primary hypertension; Hypercholesterolemia; S/P placement of cardiac pacemaker; Seizures ([facility]); Bipolar 1 disorder ([facility]); Gastroesophageal reflux disease, unspecified whether esophagitis present; Vitamin D deficiency; Vitamin B12 deficiency; Cigarette nicotine dependence without complication Start: 08-26-2023 End: 08-26-2023 Emergency department patient visit Floyd Mercado MD Work Phone: [facility] Emergency Department Start: 08-11-2023 Refill Rafaela cline SECTION CREWS ACTIVITIES CLERK Work Phone: [facility] Comment on above: Muscle spasms of bot h lower extremities Start: 08-10-2023 Refill Rafaela cline SE[employer] CREWS ACTIVITIES CLERK Work Phone: [facility] Comment on above: Type 2 diabetes symone itus with diabetic polyneuropathy, with long-term current use of insulin ([facility]) (Primary Dx); Muscle spasms of both lower extremities Start: 08-03-2023 End: 08-03-2023 Office outpatient new 60 minutes Stephany Pelayo PA-C Work Phone: [facility] Comment on above: Post traumatic stres s disorder (PTSD) (Primary Dx); Bipolar 1 disorder (HCC); Insomnia, unspecified type; Generalized anxiety disorder Start: 06-22-2023 End: 06-22-2023 Office outpatient visit 25 minutes Harris Bhat MD Work Phone: [facility] Comment on above: Bipolar 1 disorder ( HCC) (Primary Dx); Type 2 diabetes mellitus with diabetic polyneuropathy, with long-term current use of insulin (HCC); Seizures (HCC); Incontinence in female Start: 06-22-2023 Refill Maye Ramirez LPN [facility] Comment on above: Bipolar 1 disorder ( HCC) (Primary Dx) Start: 05-27-2023 ambulatory [facility] Comment on above: High Risk Outreach f or High Risk Start: 05-15-2023 End: 05-15-2023 Home visit Jackelyn Wasserman RN [facility] Comment on above: SN HH NON ADMIT VISI T Start: 05-15-2023 End: 05-15-2023 Office outpatient visit 25 minutes Stephany Pelayo PA-C Work Phone: [facility] Comment on above: Left-sided weakness (Primary Dx); Visual loss, left eye; Acute effusion of left ear; Diabetic ulcer of right foot associated with type 2 diabetes mellitus, unspecified part of foot, unspecified ulcer stage (HCC); Gastroesophageal reflux disease, unspecified whether esophagitis present; Weight gain Start: 05-15-2023 ambulatory Faustina Severino RN [facility] Comment on above: High Risk Outreach f or High Risk Start: 05-15-2023 Documentation procedure Rafaela rockwell MA [facility] Comment on above: hosp bed Start: 05-14-2023 ambulatory Swapnil Hooks [facility] Start: 05-11-2023 ambulatory STEPHANY PELAYO [facility] Start: 05-06-2023 End: 05-06-2023 Office outpatient new 45 minutes Stephany Pelayo PA-C Work Phone: [facility] Comment on above: Non-recurrent [...] Chronic obstructive pulmonary disease, unspecified COPD type ([facility]); Chronic chest pain; S/P placement of cardiac pacemaker; Hypothyroidism, unspecified type; Seizures ([facility]); Bipolar 1 disorder ([facility]); Insomnia, unspecified type; Gastroesophageal reflux disease, unspecified whether esophagitis present; Generalized weakness; Muscle spasms of both lower extremities; Vitamin B12 deficiency; Vitamin D deficiency; Incontinence of feces, unspecified fecal incontinence type; Cigarette nicotine dependence without complication; Screening for cervical cancer; Encounter for screening mammogram for malignant neoplasm of breast; Encounter for vaccination Start: 04-29-2023 End: 04-29-2023 Home visit Cece Colin OT [facility] Comment on above: OT NON-OASIS/DISCIPL INE DISCHARGE Start: 04-29-2023 End: 04-29-2023 Home visit Karen Prather PT [facility] Comment on above: PT NON-OASIS/DISCIPL INE DISCHARGE Start: 04-27-2023 Home visit Nikko Pratt CELLOPHANE CASTING MACHINE REPAIRER [facility] Comment on above: CELLOPHANE CASTING MACHINE REPAIRER MISSED VISIT Start: 04-24-2023 End: 04-24-2023 Home visit Radha Jameson [facility] Comment on above: RETANA MISSED VISIT CELLOPHANE CASTING MACHINE REPAIRER MISSED VISIT Start: 04-23-2023 End: 04-23-2023 Home visit Radha Jameson [facility] Comment on above: RETANA MISSED VISIT Start: 04-22-2023 End: 04-22-2023 Home visit Ama Wilcox RN [facility] Comment on above: SN HH OASIS DISCHARG E Start: 04-21-2023 End: 04-21-2023 Home visit Nikko Pratt [facility] Comment on above: CELLOPHANE CASTING MACHINE REPAIRER MISSED VISIT CASE COMMUNICATION CARE CONFERENCE Start: 04-20-2023 End: 04-20-2023 Home visit Ama Wilcox RN [facility] Comment on above: SN MISSED VISIT Start: 04-17-2023 Home visit Sharla Paulino [facility] Comment on above: RESTAURANT HOURLY MANAGER MISSED VISIT Start: 04-15-2023 End: 04-15-2023 Home visit Tiny Hugo CELLOPHANE CASTING MACHINE REPAIRER [facility] Comment on above: CASE COMMUNICATION SN HH ROUTINE VISIT RETANA ROUTINE VISIT Start: 04-14-2023 End: 04-14-2023 Home visit Carolina Darvin [facility] Comment on above: RESTAURANT HOURLY MANAGER HH ROUTINE Start: 04-14-2023 End: 04-14-2023 Home visit Nikko Terence CELLOPHANE CASTING MACHINE REPAIRER [facility] Comment on above: CELLOPHANE CASTING MACHINE REPAIRER ROUTINE VISIT OT INITIAL EVALUATIO N Start: 04-10-2023 Home visit Cece Jyoti Colin OT [facility] Comment on above: CASE COMMUNICATION Start: 04-09-2023 End: 04-09-2023 Home visit Carolina Boston [facility] Comment on above: RESTAURANT HOURLY MANAGER HH ROUTINE Start: 04-08-2023 End: 04-08-2023 Home visit Carlitos Carrera [facility] Comment on above: INSPECTOR WATCH PARTS HH ROUTINE Start: 04-08-2023 End: 04-08-2023 Home visit Lisa Padron PT [facility] Comment on above: PT INITIAL EVALUATIO N Start: 04-07-2023 Home visit Lisa Padron PT [facility] Comment on above: CASE COMMUNICATION RESTAURANT HOURLY MANAGER MISSED VISIT Start: 04-01-2023 End: 04-01-2023 Home visit Kassidy Wick RN [facility] Comment on above: SN HH OASIS START OF CARE Start: 03-31-2023 ambulatory [facility] Start: 03-30-2023 End: 04-22-2023 ambulatory [facility] Start: 03-29-2023 End: 03-30-2023 Emergency department patient visit Ko Aaron MD Work Phone: [facility] Start: 02-17-2023 End: 02-20-2023 Evaluation and management of inpatient Hayde Saira Pickering DO Work Phone: [facility] Surgical [address] [place] Start: 02-09-2023 End: 02-09-2023 Office outpatient new 20 minutes Josué Christianson DO Work Phone: [facility] Comment on above: Strain of right hams tring, initial encounter (Primary Dx); Strain of right knee, initial encounter; Other specified diabetes mellitus with other specified complication, unspecified whether half-way insulin use (HCC) Start: 02-04-2023 Orders Only Josué Chritsianson DO Work Phone: [facility] Comment on above: Right knee pain, uns pecified chronicity (Primary Dx) Start: 12-12-2022 ambulatory No Doctor Facility:[facility] Start: 10-21-2022 Evaluation and management of inpatient RAFAELA AHMADIP . Facility: Start: 10-11-2022 End: 10-11-[address] DOCTOR ARREDONDO Facility:[facility] Start: 10-07-2022 Emergency department patient visit UNKNOWN PROVIDER Facility:[facility] Start: 10-06-2022 End: 10-07-2022 Emergency department patient visit UNKNOWN PROVIDER Facility:[facility] Start: 10-06-2022 End: 10-07-2022 Emergency department patient visit Jocelyn Bowen MD Work Phone: [facility] Comment on above: Chart (Transfer from [facility] for [facility]) Start: 10-06-2022 End: 10-06-2022 Emergency department patient visit Preston Lugo [facility] Start: 09-18-2022 End: 09-18-2022 ambulatory YESENIA ZAMUDIO . Facility:[facility] Start: 09-12-2022 End: 09-15-2022 Evaluation and management of inpatient Pepe Echols [facility] Start: 09-12-2022 End: 09-12-2022 Admission to same day surgery center SECRETARY-C Laurent Franco Work Phone: [facility] [place] Start: 09-12-2022 End: 09-12-2022 ambulatory SECRETARY-C Laurent Franco Work Phone: [facility] Work Phone: Start: 09-09-2022 End: 09-09-2022 ambulatory SANTOS VELEZ . Facility:[facility] Start: 09-07-2022 End: 09-07-[address] DOCTOR ARREGUIN Facility:[facility] Start: 09-02-2022 End: 09-02-2022 ambulatory Shameka Romero Other [employer] Other Start: 09-02-2022 Telephone encounter Shameka Duong [facility] Surgery Start: 08-29-2022 End: 08-29-2022 Patient encounter procedure KIP LISA SORAY [facility] Start: 08-20-2022 End: 08-22-2022 Evaluation and management of inpatient SECRETARY-C Kip Soviak Work Phone: [facility] [place] [facility] Work Phone: Start: 08-20-2022 End: 08-22-2022 Evaluation and management of inpatient SECRETARY-C Kip Soviak Work Phone: [facility] [place] [facility] Work Phone: Start: 08-20-2022 observation encounter SECRETARY-C Kip W Soviak Work Phone: [facility] Work Phone: Start: 08-19-2022 End: 08-19-2022 Emergency department patient visit Santos Velez [facility] Start: 08-14-2022 ambulatory JULIA CHAPA . Facility: [facility] Start: 08-02-2022 End: 08-06-2022 Evaluation and management of inpatient DR POLO MILTON Facility:[facility] Start: 07-30-2022 End: 07-30-2022 ambulatory KHADAR ROQUE . Facility:[facility] Start: 07-10-2022 End: 07-11-2022 ambulatory YESENIA ZAMUDIO . Facility:[facility] Start: 06-21-2022 End: 06-21-[address] ROBERT Pollock Facility:[facility] Start: 06-11-2022 End: 06-12-2022 ambulatory RADHA DIAS Facility:[facility] Start: 06-02-2022 End: 06-02-2022 Emergency department patient visit Bridgett Gillespie [facility] Start: 05-15-2022 End: 05-15-2022 Emergency department patient visit Santos Velez [facility] Start: 04-20-2022 End: 04-21-2022 ambulatory RADHA DIAS Facility:[facility] Start: 04-06-2022 End: 04-09-2022 Evaluation and management of inpatient Ashutosh MENARD [facility] Start: 03-31-2022 End: 03-31-2022 ambulatory YESENIA ZAMUDIO . Facility:[facility] Start: 03-04-2022 End: 03-06-[address] DOCTOR ARREGUIN Facility:[facility] Start: 02-27-2022 End: 02-27-2022 Emergency department patient visit Gui Schafer [facility] Start: 02-21-2022 End: 02-21-2022 Emergency department patient visit Santos Velez [facility] Start: 02-17-2022 End: 02-18-[address] MICHI Pollock Facility:[facility] Start: 02-06-2022 End: 02-06-[address] POLO MILTON Facility:[facility] Start: 01-24-2022 End: 01-24-2022 Emergency department patient visit Preston Lugo [facility] Start: 01-09-2022 End: 08-18-2022 Observation Juan GONZALEZ [facility] Start: 01-01-2022 End: 01-02-2022 ambulatory CARISA STILES Facility:[facility] Start: 01-01-2022 End: 01-01-2022 Patient encounter procedure Breanna Gu [facility] Start: 12-12-2021 End: 12-12-2021 Patient encounter procedure Breanna Gu [facility] Start: 12-08-2021 End: 12-08-2021 Emergency department patient visit [facility] Start: 12-08-2021 End: 12-08-2021 Emergency department patient visit Antoine Sosa MD Work Phone: [facility] ED Comment on above: Other insomnia (Prim margoth Dx) Start: 12-08-2021 End: 12-08-2021 Emergency department patient visit Santos Moreno [facility] Start: 12-04-2021 End: 12-04-[address] DOCTOR ARREGUIN Facility:[facility] Start: 12-02-2021 End: 12-02-2021 Patient encounter procedure Breanna Gu [facility] Start: 11-28-2021 End: 11-28-[address] DOCTOR ARREGUIN Facility:[facility] Start: 11-27-2021 End: 11-27-2021 Patient encounter procedure rBeanna Gu [facility] Start: 11-04-2021 End: 11-06-2021 Evaluation and management of inpatient Sergio Rivas [facility] Start: 10-30-2021 End: 10-30-2021 Lab Drop off Breanna Gu [facility] Start: 10-10-2021 End: 02-01-2022 Pre-admission assessment Nancy GUTIERREZ [facility] Start: 10-09-2021 End: 10-09-2021 Emergency department patient visit Santos Velez [facility] Start: 10-03-2021 End: 10-03-2021 Patient encounter procedure Breanna Gu [facility] Start: 09-30-2021 End: 09-30-2021 Patient encounter procedure Breanna Gu [facility] Start: 09-30-2021 End: 09-30-2021 Preprocedural examination done Breanna Gu [facility] Start: 09-27-2021 End: 09-27-2021 Patient encounter procedure Soto Box [facility] Start: 09-02-2021 End: 11-21-2021 Pre-admission assessment Nancy GUTIERREZ [facility] Start: 09-02-2021 End: 09-02-2021 Patient encounter procedure Kirk Abbott [facility] Start: 08-29-2021 End: 08-29-2021 Patient encounter procedure Breanna Gu [facility] Start: 06-14-2021 End: 06-14-2021 ambulatory Herlinda June Other [facility] [employer] Other Start: 06-14-2021 Office outpatient vi sit 15 minutes Herlinda June [facility] [place] Start: 08-02-2020 End: 08-02-2020 Orders Only Daniel Baxter Work Phone: [facility] Start: 06-03-2020 End: 06-05-2020 Evaluation and management of inpatient BREANNA ANN [facility] Start: 06-03-2020 Critical care ill/injured patient init 30-74 min Ko Fordrandolph Hankins Work Phone: [facility] Start: 06-03-2020 End: 06-05-2020 Evaluation and management of inpatient Ko Hankins Work Phone: [address] Comment on above: Type 2 diabetes symone itus with left diabetic foot infection (HCC) (Primary Dx); Diabetic infection of left foot (HCC); Abscess of chin Start: 08-10-2019 End: 08-11-2019 Emergency department patient visit AMBROCIO CHAVEZ Facility:[facility] Start: 11-29-2018 End: 11-29-2018 Patient encounter procedure Shameka Baum [facility] Start: 09-07-2018 End: 09-09-2018 Evaluation and management of inpatient Shameka Baum [facility] Start: 07-29-2018 Registered Recurring Shameka Baum [facility] Start: 07-23-2018 End: 08-31-2018 Discharged Recurring Shameka Baum [facility] Start: 06-25-2018 End: 06-25-2018 Patient encounter procedure NONE PHYSICAN Facility: Start: 05-04-2018 End: 05-04-2018 Patient encounter procedure Shameka Baum [facility] Start: 09-01-2017 End: 09-02-2017 Emergency department patient visit CEM MARIO [facility] Start: 07-17-2017 End: 07-23-2017 Ambulatory BEN GUERRA REYNOLD [facility] Start: 06-26-2017 End: 06-26-2017 Emergency department patient visit Michi San Work Phone: [facility] Start: 06-23-2017 End: 06-23-2017 Patient encounter procedure Shameka Baum [facility] Start: 02-16-2017 End: 02-16-2017 Emergency department patient visit KEYLA PRATT [facility] Start: 02-09-2017 End: 02-09-2017 Departed Referred Shameka Baum [facility] Start: 01-16-2016 End: 01-16-2016 Admission to day surgery Shameka Baum [facility] Start: 10-02-2012 End: 10-02-2012 Emergency department patient visit Shameka Baum [facility] Start: 04-23-2012 End: 04-23-2012 Departed Referred Shameka Baum [facility] Start: 12-23-2009 End: 12-23-2009 Departed Referred Shameka Baum [facility] Start: 12-21-2002 End: 12-21-2002 [facility] Start: 08-25-2002 End: 08-25-2002 Emergency department patient visit Shameka Baum [facility] Start: 06-27-2002 End: 06-27-2002 [facility] Start: 05-08-2002 End: 05-08-2002 Emergency department patient visit Shameka Baum [facility] Start: 10-25-2001 End: 10-25-2001 Patient encounter procedure Shameka Baum [facility] Start: 10-27-1999 End: 10-27-1999 Emergency department patient visit Shameka Baum [facility] Start: 09-10-1999 End: 09-10-1999 Emergency department patient visit Shameka Baum [facility] Procedures Date Procedure Procedure Detail Performing Clinician Start: 02-02-2025 End: 02-02-2025 Gluc bld gluc mntr dev cleared fda spec home use Sergio Resendez MD Work Phone: Start: 12-28-2024 Urine culture Andrés Lopez DO Work Phone: Start: 12-05-2024 BEDSIDE GLUCOSE Elda [...] Work Phone: Start: 04-29-2024 Glucose measurement Generic [facility] Work Phone: Start: 04-29-2024 Renal function [...] Jacoby Dooley MD Work Phone: Start: 04-26-2024 KURT Dooley MD Work Phone: Start: 04-04-2024 Renal function panel Julia Hendrix DO Work Phone: Start: 04-03-2024 Renal function panel Julia Hendrix DO Work Phone: Start: 04-02-2024 Glucose measurement Generic [facility] Work Phone: Start: 04-02-2024 Renal function panel Julia Hendrix DO Work Phone: Start: 04-01-2024 Glucose measurement Generic [facility] Work Phone: Start: 04-01-2024 Radex foot [...] [facility] Work Phone: Start: 03-27-2024 [facility] real time w/image complete Misha Serrato MD Work Phone: Start: 03-27-2024 Glucose measurement Generic [facility] Work Phone: Start: 03-27-2024 Glucose measurement Generic [facility] Work Phone: Start: 03-27-2024 Glucose measurement Generic [facility] Work Phone: Start: 03-27-2024 End: 03-27-2024 Radiologic exam chest single view Julia Isabell hearn DO Work Phone: Start: 03-27-2024 Glucose measurement [facility] Work Phone: Start: 03-27-2024 Comprehensive metabolic panel Jennifer Lopez SECTION CREWS ACTIVITIES CLERK Work Phone: Start: 03-27-2024 Glucose measurement [facility] Work Phone: Start: 03-26-2024 Basic metabolic panel calcium total John Anders Chaparro MD Work Phone: Start: 03-26-2024 Glucose measurement [facility] Work Phone: Start: 03-26-2024 Glucose measurement [facility] Work Phone: Start: 03-26-2024 Glucose measurement [facility] Work Phone: Start: 03-26-2024 End: 03-26-2024 Glucose measurement [facility] Work Phone: Start: 03-26-2024 Creatinine blood Lisa Hammond [facility],PharmD Start: 03-26-2024 LAVENDER TOP Jennifer Lopez [facility] Work Phone: Start: 03-26-2024 RAINBOW DRAW Jennifer Lopez [facility] Work Phone: Start: 03-25-2024 Glucose measurement [facility] Work Phone: Start: 03-25-2024 Glucose measurement [facility] Work Phone: Start: 03-25-2024 Assay of lactate Ani Gonzales SECTION CREWS ACTIVITIES CLERK Work Phone: Start: 03-25-2024 Cul bact xcpt urine blood/stool aerobic isol Avila Rajan PA-C Work Phone: Start: 03-25-2024 Glucose measurement [facility] Work Phone: Start: 03-25-2024 Assay of lactate Ani Gonzales SECTION CREWS ACTIVITIES CLERK Work Phone: Start: 03-25-2024 Electrocardiogram Generic [facility] Work Phone: Start: 03-25-2024 End: 03-25-2024 Basic metabolic panel calcium total Imran Malcolm Smith MD Work Phone: Start: 03-25-2024 End: 03-25-2024 Glucose measurement Generic [facility] Work Phone: Start: 03-25-2024 End: 03-25-2024 Glucose measurement Ko Aaron MD Work Phone: Start: 03-25-2024 Culture bacterial quanttative colony count urine Ani Gonzales SECTION CREWS ACTIVITIES CLERK Work Phone: Start: 03-25-2024 Ecg routine ecg w/least 12 lds trcg only w/o i&r Ani Gonzales SECTION CREWS ACTIVITIES CLERK Work Phone: Start: 03-24-2024 Comprehensive metabolic panel Ani Gonzales SECTION CREWS ACTIVITIES CLERK Work Phone: Start: 03-24-2024 Gases blood ph direct jordin xcpt pulse oximitry Ani Gonzales SECTION CREWS ACTIVITIES CLERK Work Phone: Start: 03-24-2024 GOLD TOP Ko Aaron MD Work Phone: Start: 03-24-2024 Hepatic function panel Ani Gonzales SECTION CREWS ACTIVITIES CLERK Work Phone: Start: 03-24-2024 LIGHT BLUE TOP Ko Aaron MD Work Phone: Start: 03-24-2024 OBTAIN VENOUS BLOOD GASES AND PERFORM Ani Gonzales SECTION CREWS ACTIVITIES CLERK Work Phone: Start: 03-24-2024 RAINBOW DRAW Ko [...] dip stick/tablet reagent auto microscopy Mary Lou Nory Castillo SECTION CREWS ACTIVITIES CLERK Work Phone: Start: 01-16-2024 Glucose measurement [facility] Work Phone: Start: 01-16-2024 Us retroperitoneal real time w/image complete Mary Lou Cueto Anna SECTION CREWS ACTIVITIES CLERK Work Phone: Start: 01-16-2024 Glucose measurement [facility] Work Phone: Start: 01-16-2024 Glucose measurement [facility] Work Phone: Start: 01-16-2024 Renal function panel Enrique Lainez PA-C Work Phone: Start: 01-15-2024 End: 01-15-2024 Glucose measurement [facility] Work Phone: Start: 01-15-2024 Renal function panel Enrique RUBALCAVA-C Work Phone: Start: 01-14-2024 Urnls dip stick/tablet reagent auto microscopy Ruthy Dong MD Work Phone: Start: 01-14-2024 Glucose measurement [facility] Work Phone: Start: 01-14-2024 Glucose measurement [facility] Work Phone: Start: 01-14-2024 Glucose measurement [facility] Work Phone: Start: 01-14-2024 Glucose measurement [facility] Work Phone: Start: 01-14-2024 Renal function panel Enrique RUBALCAVA-C Work Phone: Start: 01-13-2024 Glucose measurement [facility] Work Phone: Start: 01-13-2024 End: 01-13-2024 Glucose measurement [facility] Work Phone: Start: 01-13-2024 Ct lower extremity w/o contrast material Shameka Castillo DPM Work Phone: Start: 01-13-2024 Glucose measurement [facility] Work Phone: Start: 01-13-2024 Glucose measurement [facility] Work Phone: Start: 01-13-2024 Blood count complete automated Enrique Santana-C Work Phone: Start: 01-13-2024 Renal function panel Enrique RUBALCAVA-C Work Phone: Start: 01-12-2024 Ecg routine ecg w/least 12 lds trcg only w/o i&r Mk Leigh MD Work Phone: Start: 01-12-2024 Glucose measurement [facility] Work Phone: Start: 01-12-2024 Radex foot complete minimum 3 views Matheus Sin Fan RUBALCAVA-C Work Phone: Start: 01-12-2024 Basic metabolic panel calcium total Matheus Sin Chavira PA-C Work Phone: Start: 01-12-2024 C-reactive [...] Work Phone: Start: 12-01-2023 Iaadiadoo influenza Stephany RUBALCAVA-C Work Phone: Start: 12-01-2023 Sars-cov-2 detection by dna/rna Stephany RUBALCAVA-C Work Phone: Start: 11-09-2023 Fundus photography w/interpretation [...] Work Phone: Start: 03-30-2023 Glucose measurement Generic [facility] Work Phone: Start: 03-30-2023 Renal function panel Enrique Lainez PA-C Work Phone: Start: 03-29-2023 Glucose measurement Generic [facility] Work Phone: Start: 03-29-2023 Assay of troponin quantitative Ko Aaron MD Work Phone: Start: 03-29-2023 Electrocardiogram Ko Aaron MD Work Phone: Start: 03-29-2023 Glucose measurement Generic [facility] Work Phone: Start: 03-29-2023 Comprehensive metabolic panel oK Aaron MD Work Phone: Start: 03-29-2023 Hepatic [...] Work Phone: Start: 02-20-2023 Glucose measurement Generic [facility] Work Phone: Start: 02-20-2023 Basic metabolic panel calcium total Harshad Rizzo MD Work Phone: Start: 02-20-2023 Glucose measurement Generic [facility] Work Phone: Start: 02-19-2023 Glucose measurement Generic [facility] Work Phone: Start: 02-19-2023 Glucose measurement [...] [facility] Work Phone: Start: 02-18-2023 Myocardial spect multiple studies Andrea seb King MD Work Phone: Start: 02-18-2023 Glucose measurement [facility] Work Phone: Start: 02-18-2023 Assay of troponin quantitative Ambrosio Butcher MD Work Phone: Start: 02-18-2023 Electrocardiogram [facility] Work Phone: Start: 02-18-2023 End: 02-18-2023 Basic metabolic panel calcium total Ambrosio Butcher MD Work Phone: Start: 02-18-2023 Glucose measurement [facility] Work Phone: Start: 02-18-2023 Assay of troponin quantitative Ambrosio Butcher MD Work Phone: Start: 02-17-2023 Ct thorax w/o contrast material Hayde JaureguiReyes DO Work Phone: Start: 02-17-2023 Ct head/brain w/o contrast material Hayde JaureguiReyes DO Work Phone: Start: 02-17-2023 Urnls dip stick/tablet reagent auto microscopy Hayde JaureguiReyes DO Work Phone: Start: 02-17-2023 Comprehensive metabolic [...] Blood culture for bacteria, including anaerobic screen SECRETARY-Isabell Franco Work Phone: Start: 08-20-2022 Pulse volume recorder pneumoplethysmography SECRETARY-C Laurent Franco Work Phone: Start: 08-19-2022 X-ray of left foot SECRETARY-C Laurent Franco Work Phone: Start: 08-07-2022 Microscopic examination of blood, culture YESENIA ZAMUDIO . Comment on above: Performed By: #### [id number] ####Mary Kay [facility] [id number] [place], [place] [address]Dr. Devin Suresh Start: 12-08-2021 Drug screen, qualitate/multi [...] Start: 06-04-2020 Glucose [Mass/volume] in Blood Breanna Lela arechiga Sheldon Work Phone: Start: 06-04-2020 Glucose [Mass/volume] in Blood Breanna Lela arechiga Sheldon Work Phone: Start: 06-04-2020 Basic metabolic 2000 panel - Serum or Plasma Breanna Bolivar Work Phone: Start: 06-04-2020 Complete blood count with white cell differential, automated Breanna Noriega Sheldon Work Phone: Start: 06-04-2020 Complete blood count with white cell differential, manual Breanna Bolivar Work Phone: Start: 06-04-2020 Hemoglobin A1c/Hemoglobin.total in Blood Jessica Carvalho Start: 06-04-2020 Magnesium [Mass/volume] in Serum or Plasma Breanna Bolivar Work Phone: Start: 06-03-2020 Assay of lactate Ko Hankins Work Phone: Start: 06-03-2020 Glucose [Mass/volume] in Blood Breanna Lela arechiga Sheldon Work Phone: Start: 06-03-2020 COVID-19, MOLECULAR Ko [...] 09-01-2017 BETA-HYDROXYBUTYRATE KEYLA PRATT Start: 09-01-2017 CBC NANCISARAH TERENCE Start: 09-01-2017 D-DIMER, QUANTITATIVE KEYLA PRATT Start: 09-01-2017 LITHIUM LEVEL KEYLA PRATT Start: 09-01-2017 MAGNESIUM KEYLA PRATT Start: 09-01-2017 TROPONIN KEYLA PRATT Start: 09-01-2017 FILLER OPERATOR KEYLA PRATT Start: 09-01-2017 INSERT PERIPHERAL [...] 02-16-2017 Chest x-ray 1 view frontal KEYLA MERCADO Start: 02-16-2017 INSERT PERIPHERAL IV KEYLA PRATT Start: 02-16-2017 EKG 12-LEAD KEYLA PRATT Start: 02-16-2017 APTT KEYLA PRATT Start: 02-16-2017 BASIC METABOLIC PANEL KEYLA PRATT Start: 02-16-2017 BRAIN NATRIURETIC PEPTIDE KEYLA GUERRA Start: 02-16-2017 CBC WITH AUTO DIFFERENTIAL KEYLA PATELS Start: 02-16-2017 D-DIMER, QUANTITATIVE KEYLA PRATT Start: 02-16-2017 PROTIME-INR KEYLA PRATT Start: 02-16-2017 TROPONIN KEYLA PRATT Start: 01-24-2016 Right Plantar Fasciotomy Breanna Gu Start: 05-27-2012 Microalbumin [Mass/volume] in Urine by Test strip Ko Hankins Ankle Breanna Gu ankle surgery ORIF 3 Breanna Gu Comment on above: bilateral bilateral Cholecystectomy Breanna Andrade ll Colonoscopy Breanna Gu Dentition (body structure) K peace Gu Esophagogastroduodenoscopy K peace Gu Hysterectomy Breanna Gu insertion of Infusaport 4 Ka rubin Gu Comment on above: right chest right chest Laparoscopy Breanna Gu Loop electrosurgical excision procedure of cervix Breanna Gu pacemaker 5 Breanna Gu Comment on above: Jan 2012- [facility] Jan 2012- [facility] Structure of eye pro per (body structure) Breanna Gu Plan of Treatment Date Care Activity Detail Author Start: 02-22-2032 DTaP,Tdap and Td Vaccines (2 - Td or Tdap) DTaP,Tdap and Td Vaccines (2 - Td or Tdap) [facility] Start: 02-22-[address] [facility] Start: 2027 Shingles (RZV) Vaccine (1 of 2) Shingles (RZV) Vaccine ([facility] 2) [facility] Start: 03-06-2027 Cholesterol [Mass/volume] in Serum or Plasma Cholesterol [facility] Start: 12-03-2025 Adult BMI Screening Adult BMI Screening [facility] Start: 12-03-2025 Depression Screening Depression Screening [facility] Start: 12-03-2025 Tobacco Screening Tobacco Screening [facility] Start: 08-02-2025 Urine screening for protein eGFR Diabetes [facility] Start: 05-30-2025 End: 05-30-2025 Patient encounter procedure 05/30/2025 3:05 PM EST Office Visit [facility] [place] [address] [place] [address] Jim Velez, DO [address] [place] [address] [facility] [place] Start: 05-04-2025 Hemoglobin A1c measurement [facility] Start: 05-04-2025 End: 05-04-2025 Patient encounter procedure 05/04/2025 11:30 AM EST Office Visit [facility] [address] [place] [address] Sergio Resendez MD [address] [place] [address] [facility] Start: 04-04-2025 Urine screening for protein eGFR Diabetes [facility] Start: 03-25-2025 eGFR Diabetes eGFR Diabetes [facility] Start: 03-25-2025 Urine screening for protein eGFR Diabetes [facility] Start: 03-22-2025 Urine screening for protein eGFR Diabetes [facility] Start: 03-08-2025 End: 03-08-2025 Patient encounter procedure 03/08/2025 11:30 AM EDT Office Visit [facility] [address] [facility] [address] [place] [address] Mihai Elizalde, SECTION CREWS ACTIVITIES CLERK [address] [place] [address] Jem Kumar MD [address] [facility] [address] [place] [address] [facility] Start: 03-05-2025 Hemoglobin A1c measurement Diabetes: Hemoglobin A1C [facility] Start: 03-03-2025 End: 03-03-2025 Patient encounter procedure 03/03/2025 8:00 AM EDT Office Visit [facility] [address] [place] [phone] Lexy Leach MD [address] [place] [address] [facility] Start: 02-14-2025 COVID-19 Vaccine ( season) COVID-19 Vaccine () [facility] Comment on above: Postponed from 01/24/2024 (Treatment Not Available) Start: 02-14-2025 COVID-19 Vaccine () COVID-19 Vaccine () [facility] Comment on above: Postponed from 01/24/2024 (Treatment Not Available) Start: 02-02-2025 End: 02-02-2026 25-hydroxyvitamin D3 [Mass/volume] in Serum or Plasma Vitamin D 25 hydroxy Total Lab Routine Type 2 diabetes mellitus with hyperglycemia, with long-term current use of insulin (HCC) Expected: 02/02/2025 (Approximate), Expires: 02/02/2026 [facility] Comment on above: Expected: 02/02/2025 (Approximate), Expi res: 02/02/2026 Start: 02-02-2025 End: 02-02-2026 C-peptide C-peptide Lab Routine Type 2 diabetes mellitus with hyperglycemia, with long-term current use of insulin (HCC) Expected: 02/02/2025 (Approximate), Expires: 02/02/2026 [facility] Work Phone: Comment on above: Expected: 02/02/2025 (Approximate), Expi res: 02/02/2026 Start: 02-02-2025 Hemoglobin A1c measurement HBA1C TEST [facility] Start: 02-02-2025 End: 02-02-2026 Lipid 1996 panel - Serum or Plasma Lipid panel Lab Routine Type 2 diabetes mellitus with hyperglycemia, with long-term current use of insulin (HCC) Expected: 02/02/2025 (Approximate), Expires: 02/02/2026 [facility] Comment on above: Expected: 02/02/2025 (Approximate), Expi res: 02/02/2026 Start: 02-02-2025 End: 02-02-2026 Microalbumin/Creatinine panel in random Urine Microalbumin / creatinine urine ratio Lab Routine Type 2 diabetes mellitus with hyperglycemia, with long-term current use of insulin (HCC) Expected: 02/02/2025 (Approximate), Expires: 02/02/2026 [facility] Comment on above: Expected: 02/02/2025 (Approximate), Expi res: 02/02/2026 Start: 02-02-2025 End: 02-02-2026 Renal function panel Renal function panel Lab Routine Type 2 diabetes mellitus with hyperglycemia, with long-term current use of insulin (HCC) Expected: 02/02/2025 (Approximate), Expires: 02/02/2026 [facility] Comment on above: Expected: 02/02/2025 (Approximate), Expi res: 02/02/2026 Start: 02-02-2025 End: 02-02-2025 Patient encounter procedure 02/02/2025 10:50 AM EDT [facility] [address] [place] [address] Sergio Resendez MD [address] [place] [address] Arrived [facility] Comment on above: Arrived Start: 01-23-2025 COVID-19 Vaccine ( season) COVID-19 Vaccine ( season) [facility] Start: 01-23-2025 Influenza vaccination [facility] Start: 01-17-2025 Urine screening for protein eGFR Diabetes [facility] Start: 01-05-2025 End: 01-05-2025 Patient encounter procedure 01/05/2025 7:30 AM EDT Office Visit [facility] [place] [address] [place] [address] Mihai Elizalde, SECTION CREWS ACTIVITIES CLERK [address] [place] [address] [facility] [place] Start: 01-01-2025 Hemoglobin A1c measurement A1C [facility] Start: 12-28-2024 Bacteria identified in Urine by Culture Urine Culture [facility] Start: 12-28-2024 Urine culture [facility] Start: 12-21-2024 End: 12-21-2024 Patient encounter procedure 12/21/2024 10:40 AM EDT Office Visit [facility] [place] [address] [place] [address] Mihai Elizalde, BEATRIZ [address] [place] [address] [facility] [place] Start: 12-12-2024 End: 12-12-2024 Patient encounter procedure 12/12/2024 3:30 PM EDT Office Visit [facility] [address] [place] [address] Sahara Sanchez MD [address] [place] [address] [facility] Start: 12-07-2024 End: 12-07-2024 Patient encounter procedure 12/07/2024 10:00 AM EDT Office Visit [facility] [address] [place] [address] Lindsay Johnson APRN-BEATRIZ [address] [place] [phone] [facility] Start: 12-05-2024 End: 12-05-2024 Patient encounter procedure 12/05/2024 2:20 PM EDT Office Visit [facility] [address] [place] [address] Stephany Pelayo PA-C [address] [place] [address] [place] [address] [facility] Start: 12-04-2024 Diabetic foot examination Diabetic Foot Exam [facility] Start: 11-08-2024 Glaucoma screening [facility] Start: 11-02-2024 Hemoglobin A1c measurement A1C [facility] Start: 10-28-2024 Urine screening for protein eGFR Diabetes [facility] Start: 10-14-2024 End: 10-14-2024 Patient encounter procedure 10/14/2024 8:40 AM EDT Office Visit [facility] [address] [place] [address] Stephany Pelayo PA-C [address] [address] [facility] Start: 10-11-2024 End: 10-11-2024 Patient encounter procedure 10/11/2024 2:30 PM EDT Office Visit [facility] [address] [place] [address] Mery Robles MD [address] [place] [address] [facility] Start: 10-10-2024 End: 10-10-2024 Patient encounter procedure 10/10/2024 3:40 PM EDT Office Visit [facility] [address] [place] [address] Stephany Pelayo PA-C [address] [address] [facility] Start: 09-28-2024 End: 09-28-2024 Patient encounter procedure 09/28/2024 9:45 AM EDT Office Visit [facility] End[facility]in[facility] [address] [place] [address] Sahara Sanchez MD [address] [facility] [place] [address] [facility] Start: 09-27-2024 Urine screening for protein eGFR Diabetes [facility] Start: 09-23-2024 End: 09-23-2025 External Lab Urine Drug Screen External Lab Urine Drug Screen Lab Routine Lumbar radiculopathy Chronic pain syndrome Expected: 09/23/2024, Expires: 09/23/2025 [facility] Work Phone: Comment on above: Expected: 09/23/2024, Expires: Start: 09-23-2024 End: 09-23-2024 Patient encounter procedure 09/23/2024 10:30 AM EDT Office Visit [facility] [place] [address] [place] [phone] Jim Velez, DO [address] [place] [address] [facility] [place] Start: 09-02-2024 History and physical examination, annual for health maintenance Wellness Visit [facility] Start: 09-02-2024 Screening for malignant neoplasm of colon Colorectal Cancer Screening/Monitoring [facility] Comment on above: Postponed from 1977 (Patient Refus ed) Start: 09-02-2024 Urine screening for protein Urine Microalbumin [facility] Start: 08-23-2024 End: 08-23-2024 Patient encounter procedure [facility] Start: 08-22-2024 End: 08-22-2024 Patient encounter procedure 08/22/2024 1:30 PM EDT Office Visit [facility] [address] [place] [address] Rafaela Medrano, SECTION CREWS ACTIVITIES CLERK [address] [place] [address] [facility] Start: 08-10-2024 End: 08-10-2024 Patient encounter procedure [facility] Start: 08-09-2024 End: 08-09-2024 Patient encounter procedure 08/09/2024 4:00 PM EDT Office Visit [facility] [place] [address] [place] [address] Jim Velez, DO [address] [place] [address] [facility] [place] Start: 07-28-2024 End: 07-28-2024 Patient encounter procedure 07/28/2024 2:20 PM EST Office Visit [facility] [address] [place] [address] Stephany Pelayo PA-C [address] [facility] [place] [address] [facility] Start: 07-26-2024 End: 07-26-2024 ambulatory [facility] Start: 07-26-2024 End: 07-26-2024 Patient encounter procedure 07/26/2024 11:00 AM EST Office Visit [facility] [place] [address] Stephany Pelayo PA-C [address] [place] [address] [facility] Start: 07-20-2024 Urine screening for protein eGFR Diabetes [facility] Start: 07-08-2024 End: 07-08-2024 Patient encounter procedure 07/08/2024 8:50 AM EST Office Visit [facility] [address] [place] [address] Soto Box, DPM FACFAS [address] [place] [address] [facility] Start: 07-07-2024 End: 07-07-2024 Patient encounter procedure 07/07/2024 2:20 PM EST Office Visit [facility] [place] [address] Stephany Pelayo PA-C [address] [address] [facility] Start: 07-05-2024 End: 07-05-2024 Patient encounter procedure 07/05/2024 8:20 AM EST Office Visit [facility] [address] [place] [address] Soto Box, DPM FACFAS [address] [place] [address] Arrived [facility] Comment on above: Arrived Start: 06-22-2024 Hemoglobin A1c measurement [facility] Start: 06-20-2024 End: 06-20-2024 Patient encounter procedure 06/20/2024 9:40 AM EST Office Visit [facility] Neu[facility] [address] [facility] [address] [place] [address] Virgen Campos MD [address] [facility] 2 [place] [address] [facility] Start: 05-11-2024 End: 05-11-2024 ambulatory [facility] Start: 05-11-2024 End: 05-11-2024 Patient encounter procedure 05/11/2024 2:15 PM EST Office Visit [facility] [address] [place] [address] Sahara Sanchez MD [address] [place] [address] [facility] Start: 05-11-2024 End: 05-11-2024 ambulatory [facility] Start: 05-11-2024 End: 05-11-2024 Patient encounter procedure 05/11/2024 10:15 AM EST Office Visit [facility] [address] [facility] [place] [id number] Ramiro Hale MD [address]z [address] [address] Discharge Disposition: Home [facility] Start: 05-06-2024 COVID-19 Vaccine (2022- season) COVID-19 Vaccine ( season) [facility] Comment on above: Postponed from 01/23/2023 (Patient Refus ed) Start: 05-06-2024 Hepatitis C screening Hepatitis C Screening [facility] Comment on above: Postponed from 1995 (Patient Refus ed) Start: 05-06-2024 HIV screening HIV Screening [facility] Comment on above: Postponed from 1992 (Patient Refus ed) Start: 05-06-2024 Screening for malignant neoplasm of cervix Pap Smear [facility] Comment on above: Postponed from 1998 (Patient Refus ed) Start: 05-05-2024 End: 05-05-2024 Patient encounter procedure 05/05/2024 11:40 AM EST Office Visit [facility] [place] [address] [place] [address] Mihai Elizalde, SECTION CREWS ACTIVITIES CLERK [address] [place] [address] [facility] [place] Start: 04-27-2024 End: 04-27-2024 ambulatory [facility] [place] Start: 04-27-2024 End: 04-27-2024 Patient encounter procedure 04/27/2024 3:40 PM EST Office Visit [facility] [place] [address] [place] [address] Mihai Elizalde, SECTION CREWS ACTIVITIES CLERK [address] [place] [address] [facility] [place] Start: 04-19-2024 End: 04-19-2024 Patient encounter procedure 04/19/2024 8:40 AM EST Office Visit [facility] [place] [address] [place] [address] Mihai Elizalde, SECTION CREWS ACTIVITIES CLERK [address] [place] [address] [facility] [place] Start: 04-14-2024 Diabetic foot examination Diabetic Foot Exam [facility] Start: 04-13-2024 Hemoglobin A1c measurement A1C [facility] Start: 04-01-2024 End: 04-01-2024 Patient encounter procedure 04/01/2024 11:00 AM EST Office Visit [facility] Primary Care Physicians [address] [place] [address] Stephany Pelayo PA-C [address] [place] [address] [facility] Phys[facility] Start: 03-22-2024 End: 03-22-2024 Patient encounter procedure 03/22/2024 11:00 AM EDT Office Visit [facility] [address] [facility] [place] [address] Stephany Pelayo PA-C [address] [place] [address] [facility] Phys[facility] Start: 03-03-2024 End: 03-03-2024 Patient encounter procedure [facility] Primary Care Start: 03-01-2024 End: 03-01-2024 Patient encounter procedure 03/01/2024 11:30 AM EDT Office Visit [facility] Psych [address] [place] [address] Zoë Garcia MD [address] [place] [address] [facility] Psych Start: 02-17-2024 End: 02-17-2024 Patient encounter procedure 02/17/2024 1:40 PM EDT Office Visit [facility] Neurology [address] [place] [address] Virgen Campos MD [address] [place] [address] [facility] Start: 02-10-2024 End: 02-10-2024 Patient encounter procedure 02/10/2024 1:00 PM EDT Office Visit [facility]icians [address] [place] [address] Rafaela Medrano, SECTION CREWS ACTIVITIES CLERK [address] [place] [address] [facility] Physicians Start: 02-02-2024 End: 02-02-2024 Patient encounter procedure 02/02/2024 4:00 PM EDT Office Visit [facility] [place] [address] [place] [address] Jim Velez DO [address] [place] [address] [facility] [place] Start: 01-28-2024 End: 01-28-2024 Patient encounter procedure 01/28/2024 2:00 PM EDT Office Visit [facility] Psych [address] [place] [address] Zoë Garcia MD [address] [place] [address] [facility] Psych Start: 01-27-2024 End: 01-27-2024 Patient encounter procedure 01/27/2024 1:30 PM EDT Office Visit [facility] Primary Care Physicians [address] [place] [address] Rafaela Medrano, BEATRIZ [address] [place] [address] [facility] Start: 01-24-2024 COVID-19 VACCINE ( season) COVID-19 VACCINE () [facility] Start: 01-24-2024 COVID-19 Vaccine ( season) COVID-19 Vaccine ( season) [facility] Start: 01-24-2024 COVID-19 Vaccine ( season) COVID-19 Vaccine ( season) [facility] Start: 01-24-2024 Influenza vaccination Influenza Vaccine (#1) [facility] Start: 01-19-2024 End: 01-19-2024 Patient encounter procedure 01/19/2024 11:30 AM EDT Office Visit [facility] Psych [address] [place] [address] Zëo Garcia MD [address] [place] [address] [facility] Start: 01-15-2024 Hemoglobin A1c measurement A1C [facility] Start: 12-23-2023 End: 12-23-2023 ambulatory 12/23/2023 3:15 PM EDT Evaluation [facility] [address] [place] [address] Jim Velez, [address] [place] [address] Mary Wells, NIKUNJ Discharge Disposition: Home [facility] Start: 12-22-2023 End: 12-22-2023 Patient encounter procedure 12/22/2023 2:00 PM EDT Office Visit [facility] [address] [place] [address] Sharla Camara PA-C [address] [place] [address] [facility] Start: 12-21-2023 End: 12-21-2023 Patient encounter procedure 12/21/2023 2:00 PM EDT Office Visit [facility] Neurology [address] [place] [address] Virgen Campos MD [address] [place] [address] [facility] Neu[facility] Start: 12-14-2023 End: 12-14-2023 Patient encounter procedure 12/14/2023 10:00 AM EDT Office Visit [facility] Endocrinology [address] [place] [address] Sahara Sanchez MD [address] [place] [address] [facility] Start: 12-08-2023 End: 12-08-2023 Patient encounter procedure 12/08/2023 2:00 PM EDT Office Visit [facility] [place] [address] [place] [address] Stephany Pelayo PA-C [address] [place] [address] Jim Velez, DO [address] [place] [address] [facility] [place] Start: 12-03-2023 End: 12-03-2023 Patient encounter procedure 12/03/2023 2:00 PM EDT Office Visit [facility] [place] [address] [place] [address] Jim Velez, DO [address] [place] [address] [facility] [place] Start: 12-02-2023 End: 12-02-2023 Patient encounter procedure 12/02/2023 1:45 PM EDT Office Visit [facility] Endocrinology [address] [place] [address] Stephany Pelayo PA-C [address] [place] [address] Sahara Sanchez MD [address] [facility] [place] [address] [facility] Endocrin[facility] Start: 11-19-2023 End: 11-19-2023 Patient encounter procedure 11/19/2023 12:40 PM EDT Office Visit [facility] Primary Care [address] [place] [address] Stephany Pelayo PA-C [address] [place] [address] [facility] Primary Care Start: 11-19-2023 End: 11-19-2023 ambulatory 11/19/2023 9:00 AM EDT Evaluation [facility] Ophthalmology [address] [facility] [place] [address] Stephany Pelayo PA-C [address] [place] [address] Karon Monzon DO [address] [facility] [place] [address] [facility]hthal[facility] Start: 10-13-2023 End: 10-13-2023 Patient encounter procedure 10/13/2023 11:20 AM EDT Office Visit [facility] Primary Care [address] [place] [address] Stephany Pelayo PA-C [address] [place] [address] [facility] Primary Care Start: 10-08-2023 End: 10-08-2023 Patient encounter procedure 10/08/2023 7:00 AM EDT Appointment [facility] [address] [place] [address] Virgen Campos MD [address] [place] [address] [facility] Start: 10-07-2023 End: 10-07-2023 Patient encounter procedure [facility] Psych Start: 10-03-2023 Glaucoma screening Diabetic Eye Exam [facility] Comment on above: Postponed from 1987 (Per Other [facility] Practice Guidelines) Start: 09-16-2023 End: 09-16-2023 Patient encounter procedure 09/16/2023 1:00 PM EDT Office Visit [facility] Neurology [address] [place] [address] Virgen Campos MD [address] [place] [address] [facility] Neu[facility] Start: 09-03-2023 End: 09-03-2023 Patient encounter procedure 09/03/2023 2:00 PM EDT Office Visit [facility] Primary Care [address] [place] [address] Stephany Pelayo PA-C [address] [place] [address] [facility] Primary Care Start: 08-19-2023 End: 08-19-2023 Patient encounter procedure 08/19/2023 2:00 PM EDT Office Visit [facility] [address] [facility] [place] [address] Sharla Camara PA-C [address] [facility] [place] [address] [facility] Start: 08-09-2023 Hemoglobin A1c measurement A1C [facility] Start: 08-03-2023 End: 08-03-2023 Patient encounter procedure 08/03/2023 2:30 PM EDT Initial consult [facility] Psych [address] [place] [address] Stephany Pelayo PA-C [address] [place] [address] Zoë Garcia MD [address] [place] [address] [facility] Start: 07-23-2023 Diabetic foot examination Diabetic Foot Exam [facility] Comment on above: Postponed from 1987 (Per Other [facility] Practice Guidelines) Start: 07-03-2023 End: 07-03-2023 ambulatory 07/03/2023 9:00 AM EST Evaluation [facility] Ophthal[facility] [address] [facility] [place] [address] Stephany Pelayo PA-C [address] [facility] [address] [place] [address] Karon Monzon, [address] [place] [address] [facility] Op[facility] Start: 06-29-2023 Hemoglobin A1c measurement A1C [facility] Start: 06-29-2023 End: 06-29-2023 Patient encounter procedure 06/29/2023 10:00 AM EST Office Visit [facility] Cardiology [address] [facility] [place] [address] Dakota Edward MD [address] [facility] [place] [address] [facility] Card[facility] Start: 06-23-2023 End: 06-23-2023 Patient encounter procedure 06/23/2023 8:15 AM EST Office Visit [facility] Endocrinology [address] [facility] [place] [address] Stephany Pelayo PA-C [address] [place] [address] Sahara Sanchez MD [address] [place] [address] [facility] Endocrinology Start: 06-22-2023 End: 06-22-2023 ambulatory 06/22/2023 2:30 PM EST Evaluation [facility] Ophthalmology [address] [place] [address] Karon Monzon DO [address] [place] [address] [facility] Start: 06-22-2023 End: 06-22-2024 Bacteria identified in Unspecified specimen by Aerobe culture Urine Aerobic Culture Microbiology Routine Incontinence in female Expected: 06/22/2023 (Approximate), Expires: 06/22/2024 [facility] Comment on above: Expected: 06/22/2023 (Approximate), Expi res: 06/22/2024 Start: 06-22-2023 End: 06-21-2024 Urinalysis Urinalysis with microscopic Lab Routine Incontinence in female Expected: 06/22/2023 (Approximate), Expires: 06/21/2024 [facility] Work Phone: Comment on above: Expected: 06/22/2023 (Approximate), Expi res: 06/21/2024 Start: 06-11-2023 End: 06-11-2023 Patient encounter procedure 06/11/2023 9:00 AM EST Office Visit [facility] Neurology [address] [place] [address] Virgen Campos MD [address] [place] [address] [facility] Neu[facility] Start: 06-03-2023 End: 06-03-2023 Patient encounter procedure 06/03/2023 11:00 AM EST Office Visit [facility] Cardiology [address] [place] [address] Stephany Pelayo PA-C [address] [place] [address] Cristy Najera MD [address] [facility] [place] [address] [facility] Card[facility] Start: 05-28-2023 End: 05-28-2023 Home visit 05/28/2023 8:00 AM EST Home Care Visit [facility] [address] [place] [address] Sharla Paulino PSA [facility] Start: 05-26-2023 End: 05-26-2023 Home visit 05/26/2023 8:00 AM EST Home Care Visit [facility] [address] [place] [address] Sharla Paulino PSA [facility] Start: 05-23-2023 Glaucoma screening Diabetic Eye Exam [facility] Comment on above: Postponed from 1987 (Per Other [facility] Practice Guidelines) Start: 05-21-2023 End: 05-21-2023 Home visit 05/21/2023 8:00 AM EST Home Care Visit [facility] [address] [place] [address] Sharla Paulino PSA [facility] Start: 05-19-2023 End: 05-19-2023 Home visit 05/19/2023 8:45 AM EST Home Care Visit [facility] [address] [place] [address] Sharla Paulino PSA [facility] Start: 05-15-2023 End: 05-15-2023 Patient encounter procedure [facility] Primary Care Start: 05-14-2023 End: 05-14-2023 Home visit 05/14/2023 8:00 AM EST Home Care Visit [facility] [address] [place] [address] Sharla Paulino PSA [facility] Start: 05-12-2023 End: 05-12-2023 Home visit 05/12/2023 8:45 AM EST Home Care Visit [facility] [address] [place] [address] hSarla Paulino PSA [facility] Start: 05-07-2023 End: 05-07-2023 Patient encounter procedure 05/07/2023 1:00 PM EST Office Visit [facility] Neurology [address] [facility] [address] [place] [address] Virgen Campos MD [address] [place] [address] [facility] Neu[facility] Start: 05-07-2023 End: 05-07-2023 Home visit 05/07/2023 8:00 AM EST Home Care Visit [facility] [address] [place] [address] Sharla Paulino PSA [facility] Start: 05-05-2023 End: 05-05-2023 Home visit 05/05/2023 8:45 AM EST Home Care Visit [facility] [address] [place] [address] Sharla Paulino PSA [facility] Start: 04-30-2023 End: 05-01-2023 Home visit [facility] Start: 04-29-2023 End: 04-29-2023 Home visit [facility] Start: 04-28-2023 End: 04-28-2023 Home visit 04/28/2023 10:15 AM EST Home Care Visit [facility] [address] [place] [address] Sharla Paulino PSA [facility] Start: 04-27-2023 End: 04-28-2023 Home visit [facility] Start: 04-27-2023 End: 04-27-2023 Home visit 04/27/2023 4:30 AM EST Home Care Visit [facility] [address] [place] [address] Carlitos Carrera LPN [facility] Start: 04-24-2023 End: 04-24-2023 Home visit 04/24/2023 7:30 AM EST Home Care Visit [facility] [address] [place] [address] Carlitos Carrera LPN [facility] Start: 04-23-2023 End: 04-23-2023 Home visit 04/23/2023 12:30 PM EST Home Care Visit [facility] [address] [place] [address] Radha Jameson OTA [facility] Start: 04-23-2023 End: 04-23-2023 Home visit 04/23/2023 9:15 AM EST Home Care Visit [facility] [address] [place] [address] Sharla Paulino PSA [facility] Start: 04-22-2023 End: 04-22-2023 Home visit [facility] Start: 04-21-2023 End: 04-21-2023 Home visit 04/21/2023 3:30 PM EST Home Care Visit [facility] [address] [place] [address] Tiny Arias PTA [facility] Start: 04-21-2023 End: 04-21-2023 Home visit 04/21/2023 12:30 PM EST Home Care Visit [facility] [address] [place] [address] Radha Jameson OTA [facility] Start: 04-21-2023 End: 04-21-2023 Home visit [facility] Start: 04-20-2023 End: 04-20-2023 Home visit [facility] Start: 04-17-2023 End: 04-17-2023 Home visit [facility] Start: 04-15-2023 End: 04-15-2023 Home visit [facility] Start: 04-14-2023 Hemoglobin A1c measurement A1C [facility] Start: 04-14-2023 End: 04-14-2023 Home visit 04/14/2023 12:15 PM EST Home Care Visit [facility] [address] [place] [address] Carolina Boston PSA [facility] Start: 04-14-2023 End: 04-14-2023 Home visit 04/14/2023 10:15 AM EST Home Care Visit [facility] [address] [place] [address] Sharla Paulino PSA [facility] Start: 04-13-2023 End: 04-13-2023 Home visit 04/13/2023 Home Care Visit [facility] [address] [place] [address] Tiny Arias PTA [facility] Start: 04-10-2023 End: 04-10-2023 Home visit 04/10/2023 5:45 AM EST Home Care Visit [facility] [address] [place] [address] Cece Colin OT [facility] Start: 04-09-2023 End: 04-09-2023 Home visit [facility] Start: 04-08-2023 End: 04-08-2023 Home visit 04/08/2023 11:30 AM EST Home Care Visit [facility] [address] [place] [address] Carlitos Carrera LPN [facility] Start: 04-07-2023 End: 04-08-2023 Home visit [facility] Start: 04-03-2023 End: 04-03-2023 Home visit 04/03/2023 11:15 AM EST Home Care Visit [facility] [address] [place] [address] Sharla Paulino PSA [facility] Start: 04-03-2023 End: 04-03-2023 Home visit 04/03/2023 8:30 AM EST Home Care Visit [facility] [address] [place] [address] Cece Colin OT [facility] Start: 04-03-2023 End: 04-03-2023 Home visit 04/03/2023 4:30 AM EST Home Care Visit [facility] [address] [place] [address] Karen Prather PT [facility] Start: 02-09-2023 End: 02-09-2023 Patient encounter procedure 02/09/2023 2:45 PM EDT Office Visit [facility] Orthoped[facility] [address] [place] [address] Josué Christianson DO [address] [place] [address] [facility] Start: 01-23-2023 COVID-19 VACCINE ( season) COVID-19 VACCINE ( season) [facility] Start: 01-23-2023 COVID-19 VACCINE ( season) COVID-19 VACCINE ( season) [facility] Start: 01-23-2023 COVID-19 Vaccine ( season) COVID-19 Vaccine ( season) [facility] Start: 01-23-2023 Influenza vaccination Sequential Influenza Vaccine (#1) [facility] Start: 09-12-2022 [facility] Start: 09-12-2022 OR DSA (Angiogram) W/TLA/Stent Left Leg (Left) OR DSA (Angiogram) W/TLA/Stent Left Leg (Left) [facility] Start: 08-22-2022 [facility] Start: 08-22-2022 Lower limb angiography IR Angiogram Left Leg (Left) [facility] Start: 08-21-2022 Referral to vascular surgeon [facility] Start: 08-20-2022 Blood culture for bacteria, including anaerobic screen Blood Culture [facility] Start: 08-20-2022 Drainage of Left Foot Skin, External Approach Drainage of Left Foot Skin, External Approach [facility] Start: 08-20-2022 Referral to infectious diseases physician [facility] Start: 08-20-2022 Hospital admission [facility] Start: 08-20-2022 Referral to white mixing operator [facility] Start: 08-19-2022 Plain chest X-ray XR chest 1V portable [facility] Start: 08-19-2022 X-ray of left foot XR foot LT min 3V* [facility] Start: 08-19-2022 XR Chest Single view [facility] Start: 08-19-2022 XR Foot - left GE 3 Views [facility] Start: 2022 [facility] Start: 03-06-2022 Pneumococcal Vaccine: Ped or At-Risk (2 - PCV) Pneumococcal Vaccine: Ped or At-Risk (2 - PCV) [facility] Start: 01-23-2022 Influenza vaccination Flu vaccine (#1) [facility] Start: 04-13-2021 COVID-19 Vaccine (2 - Pfizer series) COVID-19 Vaccine (2 - Pfizer series) [facility] Start: 04-13-2021 COVID-19 Vaccine (3 - Mixed Product series) COVID-19 Vaccine (3 - Mixed Product series) [facility] Start: 12-02-2020 HbA1c (Bld) [Mass fraction] A1C [facility] Start: 04-01-2018 Potassium [Moles/volume] in Serum or Plasma POTASSIUM [facility] Start: 09-11-2017 Hemoglobin A1c measurement HBA1C TEST [facility] Start: 2017 [facility] Start: 01-23-2017 Influenza vaccination SEQUENTIAL INFLUENZA VACCINE (#1) [facility] Work Phone: Start: 05-25-2016 Lipid panel Lipids [facility] Start: 04-02-2014 HbA1c HEMOGLOBIN A1C [facility] Work Phone: Start: 05-27-2013 Urine screening for protein Urine Microalbumin [facility] Start: 05-27-2013 Urine, microalbumin URINE MICROALBUMIN [facility] Work Phone: Start: 06-30-2009 Lipid panel LIPIDS [facility] Start: 06-02-2009 Urine screening for protein [facility] Start: 2007 Screening for malignant neoplasm of cervix [facility] Start: 1998 Screening for malignant neoplasm of cervix [facility] Start: 1996 DTaP/Tdap/Td vaccine (1 - Tdap) DTaP/Tdap/Td vaccine (1 - Tdap) [facility] Start: 1996 Hepatitis B vaccination HEP B VACCINE (1 of 3 - 19+ 3-dose series) [facility] Start: 1995 Adult BMI Follow Up Plan Adult BMI Follow Up Plan [facility] Start: 1995 Hepatitis C antibody, confirmatory test Hepatitis C Screening [facility] Start: 1995 Hepatitis C screening [facility] Start: 1993 COVID-19 Vaccine (1 of 2) COVID-19 Vaccine (1 of 2) [facility] Start: 1992 HIV screening [facility] Start: 1989 Depression Screen Depression Screen [facility] Start: 1987 Diabetic foot examination (regime/therapy) [facility] Start: 1987 Glaucoma screening [facility] Start: 1987 Ophthalmic examination and evaluation OPHTHALMOLOGY EXAM [facility] Work Phone: Start: 1987 Urine screening for protein Urine (micro)albumin/creatini ne ratio - Diabetes [facility] Start: 1980 History and physical examination, annual for health maintenance Wellness Visit [facility] Start: 1977 COVID-19 Vaccine (#1) COVID-19 Vaccine (#1) [facility] Start: 1977 Diabetic foot examination DIABETIC FOOT EXAM [facility] Start: 1977 Glaucoma screening EYE EXAM [facility] Start: 1977 Hepatitis C screening HEPATITIS C VIRUS SCREENING [facility] Start: 1977 Screening for malignant neoplasm of cervix PAP SMEAR [facility] Work Phone: Start: 1977 Screening for malignant neoplasm of colon [facility] Start: 1977 Screening mammography Mammogram [facility] Start: 1977 Tetanus vaccination [facility] Work Phone: Start: 1977 Thyroid stimulating hormone measurement TSH [facility] Start: 1977 Tobacco Counseling Tobacco Counseling [facility] Aerobic microbial culture Wound Aerobic Culture Microbiology Routine 06/05/2020 11:32 AM EST [facility] Bacteria identified Cx Nom (Bld) Blood Culture Aerobic/Anaerobic Microbiology Routine 06/03/2020 2:39 PM EST [facility] Bacteria identified in Blood by Culture [facility] Work Phone: Bacteria identified in Unspecified specimen by Anaerobe culture [facility] End: 09-02-2024 Basic metabolic 2000 panel - Serum or Plasma Basic Metabolic Panel Lab Routine Primary hypertension 1 Occurrences starting 09/03/2023 until 09/02/2024 [facility] Comment on above: 1 Occurrences starting 09/03/2023 until 09/02/2024 End: 01-26-2025 Basic metabolic 2000 panel - Serum or Plasma Basic Metabolic Panel Lab Routine SOLO (acute kidney injury) (HCC) 1 Occurrences starting 01/27/2024 until 01/26/2025 [facility] Work Phone: Comment on above: 1 Occurrences starting 01/27/2024 until 01/26/2025 End: 10-07-2022 Blood typing serologic abo ABO RH TYPE Lab STAT One time for 1 Occurrences starting 10/07/2022 until 10/07/2022 [facility] Comment on above: One time for 1 Occurrences starting 09/22 until 10/07/2022 End: 03-22-2025 Clostridium difficile toxin assay Clostridium Difficile Testing Microbiology Routine Diarrhea, unspecified type 1 Occurrences starting 03/22/2024 until 03/22/2025 [facility] Comment on above: 1 Occurrences starting 03/22/2024 until 03/22/2025 End: 03-22-2025 Complete blood count with white cell differential, manual CBC and Differential Lab Routine Diarrhea, unspecified type Abdominal cramping 1 Occurrences starting 03/22/2024 until 03/22/2025 [facility] Comment on above: 1 Occurrences starting 03/22/2024 until 03/22/2025 End: 08-02-2025 Complete blood count with white cell differential, manual CBC and Differential Lab Routine Primary hypertension 1 Occurrences starting 08/02/2024 until 08/02/2025 [facility] Work Phone: Comment on above: 1 Occurrences starting 08/02/2024 until 08/02/2025 End: 10-12-2024 Comprehensive metabolic 2000 panel - Serum or Plasma Comprehensive Metabolic Panel Lab Routine RUQ abdominal pain 1 Occurrences starting 10/13/2023 until 10/12/2024 [facility] Comment on above: 1 Occurrences starting 10/13/2023 until 10/12/2024 End: 03-22-2025 Comprehensive metabolic 2000 panel - Serum or Plasma Comprehensive Metabolic Panel Lab Routine Diarrhea, unspecified type Abdominal cramping 1 Occurrences starting 03/22/2024 until 03/22/2025 [facility] Comment on above: 1 Occurrences starting 03/22/2024 until 03/22/2025 End: 09-15-2024 EEG (STANDARD) EEG (Standard) Neurology Routine Seizure (HCC) 1 Occurrences starting 09/16/2023 until 09/15/2024 [facility] Work Phone: Comment on above: 1 Occurrences starting 09/16/2023 until 09/15/2024 External Lab Urine D rug Screen External Lab Urine Drug Screen Lab Routine Encounter for monitoring opioid maintenance therapy Ordered: 05/13/2024 [facility] Work Phone: Comment on above: Ordered: 05/13/2024 End: 03-22-2025 Gastrointestinal pathogens DNA and RNA panel - Stool by EBONIE with non-probe detection Stool/GI PCR Panel Microbiology Routine Diarrhea, unspecified type 1 Occurrences starting 03/22/2024 until 03/22/2025 [facility] Work Phone: Comment on above: 1 Occurrences starting 03/22/2024 until 03/22/2025 End: 09-02-2024 Hemoglobin A1c/Hemoglobin.total in Blood Hemoglobin A1c Lab Routine Type 2 diabetes mellitus with diabetic polyneuropathy, with long-term current use of insulin (HCC) 1 Occurrences starting 09/03/2023 until 09/02/2024 [facility] Work Phone: Comment on above: 1 Occurrences starting 09/03/2023 until 09/02/2024 End: 07-07-2024 MG Breast - bilateral Screening Mammography Screening [place] [facility] Imaging Routine Encounter for screening mammogram for malignant neoplasm of breast 1 Occurrences starting 05/06/2023 until 07/07/2024 [facility] Work Phone: Comment on above: 1 Occurrences starting 05/06/2023 until 07/07/2024 End: 10-02-2025 MG Breast - bilateral Screening Mammography Screening Bilateral Imaging Routine Encounter for screening mammogram for malignant neoplasm of breast 1 Occurrences starting 08/02/2024 until 10/02/2025 [facility] Comment on above: 1 Occurrences starting 08/02/2024 until 10/02/2025 Microalbumin measure ment, urine, quantitative Microalbumin, Urine, Random Lab Routine Type 2 diabetes mellitus with diabetic polyneuropathy, with long-term current use of insulin (HCC) Ordered: 12/02/2023 [facility] Work Phone: Comment on above: Ordered: 12/02/2023 Patient Education [facility] Work Phone: Patient referral [facility] Work Phone: Procedure on tissue specimen [facility] Work Phone: End: 10-07-2022 Prothrombin time PROTHROMBIN TIME AND INR Lab STAT One time, now for 1 Occurrences starting 10/07/2022 until 10/07/2022 [facility] Comment on above: One time, now for 1 Occurrences starting 10/07/2022 until 10/07/2022 End: 10-06-2022 RF Spine epidural space Views W contrast IT [facility] Work Phone: Comment on above: One time, now for 1 Occurrences starting 10/06/2022 until 10/06/2022 End: 03-22-2025 Serum levetiracetam measurement Levetiracetam Level Lab Routine Seizures ([facility]) 1 Occurrences starting 03/22/2024 until 03/22/2025 [facility] Comment on above: 1 Occurrences starting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 Sun, on the , as [...] Nsaids (non-steroidal anti-inflammatory drug), Vancomycin, and Propoxyphene Plan of care from last OV: Continue Percocet 5-325 one tablet tid prn [...] care for consistency and continuity over time. TODAY'S HISTORY: Addie was hospitalized briefly in November due to acute vision loss secondary to hyperglycemia. In December, was hospitalized with CVA - started rehab January 04. [place]- had a bruise in her lumbar area from hitting the toilet and hurt her right knee. She also injured her left hand, and has difficulty closing her fist. We reviewed her CT Lumbar Spine from 07/12/23, which shows disc bulging at L3-4, L4-5, and L5-S1 resulting in spinal canal stenosis and bilateral foraminal stenosis. A previous lumbar surgery was delayed due to concern for MRSA infection. She would like a consult with another Neurosurgeon. She notes that the current dosing of Percocet 5-325 one tablet TID prn was continued by a provider at the SNF she attended for her CVA recovery, but is inadequately managing her chronic lumbar spinal stenosis pain. She is requesting a continuation of PT and OT to try to recover as much function as she had before her CVA. She is requesting an order for a replacement power scooter. She requires this to be able to run errands and complete houswork. Denies falls. Denies paresthesias. Bowel and bladder are intact. OARRS/NARxCheck: OARRS/NARxCHECK Report Received and Assessed: 02/23/25 Date controlled substance agreement signed: 12/08/23 Date of last drug screen: 09/23/24 Functional Assessment: 50 Opioid Risk Tool: Past Medical History Past [...] ORTHOPEDIC SURGERY left foot surgery PACEMAKER INSERTION AZ AMPUTATION TOE METATARSOPHALANGEAL JOINT Left 04/01/2024 Procedure: AMPUTATION LEFT HALLUX; Surgeon: Shameka Castillo DPM; Location: [facility] Main OR; Service: Podiatry Social History Social History[1] Family History family history includes Diabetes in her father; Diabetes type II in her father; Hypertension in her father; Seizures in her mother. Physical Exam PACU Vitals 02/23/25 1351 BP: (!) 133/100 Pulse: 92 Body mass index is 51.21 kg/m . Wt Readings from Last 3 Encounters: 02/23/25 127 kg (280 lb) 09/18/24 127 kg (280 lb) 05/23/24 127 kg (280 lb) Temp Readings from Last 3 Encounters: 09/22/24 97.6 F (36.4 C) 09/18/24 97.7 F (36.5 C) (Oral) 05/23/24 97.6 F (36.4 C) (Oral) BP Readings from Last 3 Encounters: 02/23/25 (!) 133/100 09/23/24 121/84 09/22/24 (!) 153/68 Pulse Readings from Last 3 Encounters: 02/23/25 92 09/23/24 (!) 110 09/22/24 97 General Appearance: Alert, cooperative, no distress, appropriate for age, patient in wheelchair HEENT: Unremarkable Lungs: Clear to auscultation bilaterally, respirations unlabored Heart: Normal PMI, regular rate & rhythm, S1 and S2 normal, no murmurs, rubs, or gallop Skin/Hair/Nails: Skin warm, dry and intact, no rashes or abnormal dyspigmentation Neurologic: Alert and oriented x3, no cranial nerve deficits Musculoskeletal exam: LUMBAR/THORACIC exam: Seated position: +3/5 motor strength right leg, +5/5 motor strength left leg +2/4 DTR at L4(patellar reflex) and S1(Achilles reflex) bilaterally sensation intact with light touch on both the right and left leg +/- SLR on the right, +/-SLR on the left. Midline exam: + lumbar paraspinal muscle tenderness. Medications Active Home Medications Medication Sig Take [...] total) by mouth daily . Dexcom G6 Bindery Machine Tender Misc Use as directed for continuous glucose [...] a day as needed for pain . oxyCODONE-acetaminophen (PERCOCET) 5-325 mg per tablet Take 1 (one) tablet by mouth 3 (three) times a day as needed for pain (Days supply per fill: 30) Start: 12/22/24. paliperidone (INVEGA) 6 MG 24 hr tablet [...] (Days supply per fill: 30) Start: 12/22/24. vitamin with Ca-Iron-FA 27-1 mg Tab Take [...] 2 tabs p.o. nightly . traZODone (DESYREL) 100 MG tablet Take 1 (one) tablet (100 mg total) by mouth nightly as needed for sleep . zinc oxide-white petrolatum 17-57 % Pste Apply 1 Application topically daily . oxyCODONE-acetaminophen (PERCOCET) 7.5-325 mg per tablet Take 1 (one) tablet by mouth 3 (three) times a day as needed for pain . Imaging CT AP and Thoracic and Lumbar Spine 07/12/23 CHEST: AORTA/VASCULATURE: Normal. HEART/PERICARDIUM: Left subclavian ICD with leads in the right atrium and right ventricle. MEDIASTINAL/HILAR LYMPH NODES: No adenopathy. ESOPHAGUS: Normal as visualized. PLEURAL CAVITY: No pleural effusion or pneumothorax. LUNGS/AIRWAYS: Mild bronchial wall thickening suggestive of bronchitis. No focal consolidation. Mild focal fibrosis in the right lower lobe medially adjacent to prominent thoracic spine osteophytes. Lungs are otherwise clear. CHEST WALL/AXILLA/LOWER NECK: Normal. ABDOMEN/PELVIS: LIVER: Moderately enlarged at 22 cm in length. GALLBLADDER AND BILIARY SYSTEM: Status post cholecystectomy. SPLEEN: Mildly enlarged at 13 cm AP. PANCREAS: Moderate fatty replacement associated in the pancreatic head. ADRENAL GLANDS: Normal. KIDNEYS AND URETERS: Cjur-og-xwgepxis right renal cortical scarring. Left kidney appears unremarkable. VASCULATURE: Mild atherosclerotic calcification of the abdominal aorta. RETROPERITONEUM AND LYMPH NODES: No adenopathy. GASTROINTESTINAL TRACT/MESENTERY: Mild diverticulosis in the sigmoid colon with no acute diverticulitis. The bowel and mesentery otherwise appear unremarkable. The appendix appears normal. BLADDER: Small amount of air within the urinary bladder anteriorly. REPRODUCTIVE SYSTEM: Status post hysterectomy. BODY WALL: Normal. BONES: No acute osseous abnormality. Thoracic spine reconstructions: There is minimal chronic appearing anterior wedging at T12 which is stable. Vertebral body heights and alignment otherwise appear normal. There is minimal disc space narrowing and osteophytic spurring at the levels in the lower thoracic spine consistent with degenerative changes. The posterior elements are intact. There is no acute fracture or subluxation. There is bbqa-mn-gjufedeb neural foraminal stenosis at a few levels in the lower thoracic spine but there is no significant canal stenosis. Lumbar spine reconstructions: There is minimal stable chronic anterior wedging at L1 and L2. Vertebral body heights and alignment otherwise appear normal. There is mild disc space narrowing at L5-S1. There is mild multilevel osteophytic spurring consistent with degenerative changes. Posterior elements are intact. There is no acute fracture or subluxation. At L3-L4 there is a disc bulge with mild canal stenosis and mild bilateral neural foraminal stenosis. At L4-5 there is a central disc protrusion with moderate canal stenosis and moderate bilateral neural foraminal stenosis. At L5-S1 there is a disc bulge with mild canal stenosis and wlhh-ry-lgssnvbm bilateral neural foraminal stenosis. IMPRESSION: 1. No evidence of pulmonary embolism. 2. [...] There are degenerative changes as described above. ASSESSMENT/PLAN Encounter Diagnoses Name Primary? Lumbar stenosis with neurogenic claudication Yes Left hand pain Fall, initial encounter Lumbar radiculopathy Chronic pain syndrome Myofascial pain syndrome Degeneration of intervertebral disc of lumbar region with discogenic back pain and lower extremity pain I spent 35 minutes with the patient discussing their chronic pain and managing prescription medications and reviewing imaging reports during this visit. Order XR Sacrum and Coccyx Order XR Lumbar Spine Order XR Left Hand Referral sent to Neurosurgery, Dr Kumar Referral sent to Physical Therapy and Occupational Therapy - external Increase Percocet to 7.5-325 one tablet up to three times a day Order power scooter from [employer] Complete urine drug screen Please call Refill Line or send Repairogen Refill Request to Pain Management office 7 [...] OPIOIDS Mihai Elizalde CNP Interventional Pain Management [facility] [1] Social History Tobacco Use Smoking status: Former Current packs/day: 1.00 Average packs/day: 1 pack/day for 19.2 years (19.2 ttl pk-yrs) Types: Cigarettes Start date: 09/30/2014 Passive exposure: Current Smokeless tobacco: Never Tobacco comments: Vaping 6 mg nicotine Vaping Use Vaping status: Every Day Substances: Nicotine, Flavoring Devices: Pre-filled or refillable cartridge Substance Use Topics Alcohol use: No Alcohol/week: 0.0 standard drinks of alcohol Drug use: Yes Types: Marijuana Comment: smoking as needed, last use thursday night documented in this encounter [facility] 02-02-2025 History of Present illness Narrative Addie Jean Baptiste is a 49 y.o. female No ref. provider found presents with chief complaint of Diabetes (3 YEARS) HPI: IM : 01/2025 New patient since last time seen in my office in 2021, she lost her pump settings, currently A1c 8.4, he is on Omnipod and Dexcom 7, morbidly obese asking for weight loss medication. Interim History: 10/2019. Follow-up visit of 11/19/2021 for type 2 diabetes. She is on insulin pump, Omnipod . At 12 a.m. 2.55, 6 a.m, 2.7, ICR 1:4, and ISS 1:15. Metformin 1000 mg bid, seen by tele today to refill her meds Interim History: 06/2019. Follow-up visit of 06/28/2019 for type 2 diabetes. A1c in the office 9.3, blood sugar is 147. She is on insulin pump, Omnipod for almost 1 month; lowest 76, highest 321, average 1.4, and average 146. At 12 a.m. 2.55, 6 a.m, 2.7, ICR 1:4, and ISS 1:15. Metformin not sure about the dose twice a day. HPI: 05/12 New patient to this office, saw me in the old office before, sent from old office, She used to be on insulin pump. She has insulin pump but not insulin or supplies. She is on metformin; otherwise, not taking any insulin now. A1c in the office greater than 15, blood sugars 434. She is due for eye exam and she has very poor hygiene. SUBJECTIVE: MEDICATIONS: Current Outpatient Medications Medication Instructions Alcohol Swabs 70 % pads 5 times daily amitriptyline (Elavil) 25 MG tablet Nightly aspirin 81 MG EC tablet Every 24 hours atorvastatin (LIPITOR) 40 mg, Every evening benzonatate (TESSALON) 200 mg, 3 times daily PRN Blood Glucose Monitoring Suppl (SMCprosTouch Verio Flex System) w/Device kit No dose, route, or frequency recorded. chlorthalidone (Hygroton) 25 MG tablet Continuous Glucose Sensor (Dexcom G6 Sensor) misc USE DIRECTED FOR CONTINUOUS GLUCOSE MONITORING, CHANGE EVERY 10 DAYS Continuous Glucose Sensor (Dexcom G7 Sensor) misc 1 Bar, Does not apply, Every 10 days Emgality 120 MG/ML auto-injector ergocalciferol (Vitamin D2) 1.25 MG (27089 UT) capsule 1 capsule, Weekly Florastor 250 mg, 2 times daily with meals fluconazole (Diflucan) 150 MG tablet glucose blood ([employer] Blood Glucose Test) test strip 3 times daily glucose blood (OneTouch Verio) test strip 1 each, As needed hydrOXYzine pamoate (Vistaril) 25 MG capsule Insulin Disposable Pump (Omnipod 5 G7 Intro, Gen 5,) kit No dose, route, or frequency recorded. Insulin Lispro 100 UNIT/ML solution Lancets misc No dose, route, or frequency recorded. levETIRAcetam (Keppra) 750 MG tablet 1 tablet, Every 12 hours lisinopril 40 mg, Daily losartan (COZAAR) 25 mg, Daily RT lurasidone (LATUDA) 20 mg, Daily with breakfast meloxicam (Mobic) 15 MG tablet Take by mouth metFORMIN (GLUCOPHAGE) 1,000 mg, 2 times daily metoprolol tartrate (Lopressor) 25 MG tablet Every 12 hours metoprolol tartrate (LOPRESSOR) 50 mg, 2 times daily with meals nystatin (Mycostatin) cream nystatin (Mycostatin) ointment ofloxacin (Ocuflox) 0.3 % ophthalmic solution omeprazole (PRILOSEC) 40 mg, Daily RT Ozempic (0.25 or 0.5 MG/DOSE) 0.5 mg, Subcutaneous, Weekly prednisoLONE acetate (Pred-Forte) 1 % ophthalmic suspension pregabalin (LYRICA) 100 mg, 2 times daily promethazine (Phenergan) 25 MG tablet Every 12 hours QUEtiapine (SEROQUEL) 800 mg, Nightly sulfamethoxazole-trimethoprim (Bactrim DS) 800-160 MG per tablet terconazole (Terazol 3) 0.8 % vaginal cream tiZANidine (Zanaflex) 6 MG capsule Ventolin HFA 108 (90 Base) MCG/ACT inhaler ALLERGIES: Allergies Allergen Reactions Fentanyl GI intolerance Other [...] Compazine made her feel anxious and grumpy Ketorolac Tromethamine Palpitations Propoxyphene GI intolerance and Nausea And Vomiting Past Medical History: Diagnosis Date Body mass index (BMI) 34.0-34.9, adult Diabetes mellitus (HCC) Dietary counseling and surveillance Encounter for fitting and adjustment of insulin pump Heart disease Hypertension 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) use of insulin (HCC) Obesity, unspecified Presence of insulin pump (external) (internal) Seizures (HCC) Type 2 diabetes mellitus with hyperglycemia (HCC) Vitamin D deficiency, unspecified Past Surgical History: Procedure Laterality Date CHOLECYSTECTOMY FOOT SURGERY Bilateral HYSTERECTOMY REVIEW OF SYMPTOMS: 14 POINT OF SYSTEM REVIEWED AND NEGATIVE OBJECTIVE: Constitutional: Afebrile @ home; no weakness or night sweats SKIN: No change in skin color; no itching, rash or lesions; no hair loss; HEENT: No HAs or injury; no dizziness; No difficulty with vision; no eye pain, discharge or lesions; no hearing loss or difficulty; no nasal discharge, NECK: No pain, limitation of motion, lumps or swollen glands RESP: No cough, wheezing or difficulty breathing. No CP with breathing; CARDIO: No CP , SOB or fatigue, No edema, palpitations or dyspnea with exertion GI: No N/V/D or abd. pain; good appetite with no recent change. No heart burn, liver or gallbladder disease; no rectal bleeding or pain : No urinary pain , frequency or odor. MUSCULOSKELETAL: No muscle pain or cramps; no extremity weakness.No joint pain, stiffness, swelling or limitation of movement NEUROLOGY: No H/O seizures, stroke or fainting. No weakness, tremors. Hematology: No bleeding problems or excessive bruising ENDOCRINE: No increase in hunger, thirst or urination; admits compliance to medical management plan Feet: numbness tingling , ulcers or skin break Lab Results Component Value Date HGBA1C 8.4 02/02/2025 HGBA1C 13.6 (H) 12/03/2024 HGBA1C 10.7 (H) 10/01/2024 Lab Results Component Value Date GLU 165 02/02/2025 GLU 225 (H) 12/05/2024 GLU 253 (H) 12/04/2024 06/14/2021 12:00 PM 07/31/2021 12:00 PM 09/23/2021 12:00 PM 11/19/2021 11:25 AM 09/12/2022 12:00 PM 07/05/2024 8:26 AM 02/02/2025 10:47 AM Vitals BMI 38.96 kg/m2 38.96 kg/m2 38.96 kg/m2 34.19 kg/m2 38.96 kg/m2 42.62 kg/m2 49.38 kg/m2 BSA (m2) 2.06 m2 2.06 m2 2.06 m2 1.93 m2 2.06 m2 2.15 m2 2.31 m2 Systolic 125 126 122 119 125 128 138 Diastolic 82 77 79 81 77 75 82 Heart Rate 105 77 78 SpO2 99 % Resp 18 18 Height (in) 5' 2 5' 2 5' 2 5' 2.01 5' 2 5' 2 5' 2 Weight (lb) 213 213 213 186.99 213 233 270 Visit Report Report Report ASSESSMENT AND PLAN: Assessment/Plan Diagnoses and all orders for this visit: Type 2 diabetes mellitus with hyperglycemia, with long-term current use of insulin (HCC) - POCT glucose manually resulted - POCT glycosylated hemoglobin (Hb A1C) docked device - semaglutide (Ozempic, 0.25 or 0.5 MG/DOSE,) 2 MG/1.5ML solution pen-injector; Inject 0.5 mg under the skin 1 (one) time per week - Continuous Glucose Sensor (Dexcom G7 Sensor) misc; 1 Bar Every 10 (ten) days - C-peptide; Future - Vitamin D 25 hydroxy Total; Future - Microalbumin / creatinine urine ratio; Future - Lipid panel; Future - Renal function panel; Future We will start new settings on her new pump 12:00 a.m. 2.4, 4 am 2.6, 8 am 2.8, 6 pm 3:00 p.m, 10:00 p.m. 2.2, insulin carb ratio 1:4, insulin sensitivity 1:15 a.m., I told her son he can bring her pump so we can program it office, We will start her Ozempic 0.25 mg once weekly sample given prescriptions sent for 0.5 mg Encounter for dietary consultation Insulin long-term use (HCC) Class 3 severe obesity due to excess calories with serious comorbidity and body mass index (BMI) of 45.0 to 49.9 in adult ([facility]-H[facility]) Hyperlipemia, mixed Vitamin D deficiency Primary hypertension Encounter for fitting or adjustment of insulin pump Follow up in about 3 months (around 05/04/2025). documented in this encounter [facility] 12-22-2024 Telephone encounter Note Attempted to inform pt that meds were sent to pharmacy, [facility] full [facility] 12-22-2024 Miscellaneous Notes Attempted to inform pt that meds were sent to [facility] Pt had to cancel appt for tomorrow through her insurance and they told her there was nobody in the area that could do it. Asking to pleAse resfill her Rx. Pt rs to 01/05/25 Shon 09/23/24 documented in this encounter [facility] 12-20-2024 Telephone encounter Note Pt had to cancel appt for tomorrow through her insurance and they told her there was nobody in the area that could do it. Asking to pleAse resfill her Rx. Pt rs to 01/05/25 [facility] 12-19-2024 Telephone encounter Note Shon 09/23/24 [facility] 12-06-2024 Miscellaneous Notes [facility] - PHARMACY MEDICATION MANAGEMENT [address] [facility] [id number] [address] [facility] Medication Management for adherence & access, diabetes, and weight management. Patient was contacted to schedule appointment at [facility] Medication Management [place] ([facility]). This was my first attempt to reach [...] MD documented in this encounter [facility] 12-06-2024 Telephone encounter Note [facility] MEDICATION MANAGEMENT [address] [place] [address] [address] [facility] [id number] New referral received by [facility] Medication Management for adherence & access, diabetes, and weight management. Patient was contacted to schedule appointment at [facility] Medication Management [place] ([facility]). This was my first attempt to reach [...] Referring provider: Elda Aguirre MD [facility] 12-05-2024 Progress note Formatting of t his note might be different from the original. DISCHARGE PLANNING NOTE CRF/Med Rec sent to. [address] (P# ; F# ); [place] (P# [phone] ; F# [phone]) [facility] 12-05-2024 Miscellaneous Notes DISCHARGE PLANNING NOTE CRF/Med Rec sent to. [address] (P# ; F# ); [place] (P# [phone] ; F# [phone]) DISCHARGE PLANNING NOTE Referral to [facility]- P# ; F# , [address] [facility] [place] (P# ; F# ) , [facility] ([facility]) (P# ; F# ) Physical [...] brain (-); Blood sugar 640- transferred to [facility] Neuro- MRI brain; B vision loss likely 2/2 hyperglycemic refraction error H- bipolar Dx- diabetic retinopathy, mild-moderate diabetic macular edema R eye Past Medical History: Diagnosis Date Arrhythmia Arthritis Bipolar disorder ([facility] [place] Bronchitis, chronic ([facility] [place] Chronic constipation Chronic kidney disease Depression Diabetes mellitus type 2, controlled ([facility] [place]) 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 Meningitis Sudden [...] 6 Clicks: Basic Mobility Raw Score: 14 CMS G Code Modifier: CK PT Treatment/Interventions: Functional [...] eval Equipment: RW, gait belt, ex cath Telemetry/Office Communication Professor: Yes Oxygen Used: room air Other: (S) [...] Patient will perform bed mobility with Modified [place] Dates: Start: 12/05/24 Expected End: 12/22/24 Description: [...] vision Active Problems: Hyperosmolar hyperglycemic state (HHS) ([facility]-HCC) SOLO (acute kidney injury) HHS (hypothenar hammer [...] transition rounds, barriers to discharge are: PT/OT evals, needs to follow up with endocinologist, and new PCP appt was made by [facility]. . Discharge Plan: Home with Home care. CN met with patient. Patient provided choices for Home care [facility] tasked to send referrals to [address] and [facility] home care. Patient stated she lives on the first floor of her daughter's home off the dining room and her son lives in the basement. Supervisor [employer] Making [employer] will continue to follow for any discharge needs. - Crista Leung RN 12/05/24 11:52 AM Addendum: PT/OT rec SNF. CN met with patient and discussed therapy recommendation. Patient stated NO to SNF option. [address] is possibly accepting for home care. Waiting on final decision from [address] Patient insists she lives on the first floor and her son is the one who lives In the basement bedroom. CN tried to call daughter. - Crista Leung RN 12/05/24 1:04 PM Blood sugars have stablized and patient will be discharged today.. CN met with patient to discuss that [address] home care could accept referral and patient stated she will have to Call Medicaid provider for transport. CN stayed to verify with Medicaid transport provider that the patient is discharging from [facility] going home, cab transport arranged for 4pm at [facility] A. Nurse and attending physician notified . DC CRF completed and [facility] tasked to send DC orders to [address] care. - Crista Leung RN 12/05/24 [...] None Scoring Daily Activity Raw Score: 16 CMS G Code Modifier: CK Therapy Plan Need for skilled Occupational Therapy to address deficits in ADL independence and functional mobility due to a status decline resulting from B vision loss Pt admitted 12/02 from OSH with sudden onset vision loss B eyes. EMS witnessed seizure x5 seconds CT brain (-); Blood sugar 640- transferred to [facility] Neuro- MRI brain; B vision loss likely 2/2 hyperglycemic refraction error PMH- bipolar Dx- diabetic retinopathy, mild-moderate diabetic macular edema R eye Past Medical History: Diagnosis Date Arrhythmia Arthritis Bipolar disorder ([facility] [place] [place] Bronchitis, chronic ([facility] [place] Chronic constipation Chronic kidney disease Depression Diabetes mellitus type 2, controlled ([facility] [place]) 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 Encourage patient or legal business process representative to report early pain and ask [...] per policy 9. Teach patient or legal business process representative interventions for comforting Outcome: Progressing Note: [...] at the bedside 7. Instruct patient/ patient business process representative about use of safety devices 8. Include patient/ patient business process representative in decisions related to safety Outcome: [...] Score of =/> 25 or indicated by [facility] Re[facility] Assessment Goal: Patient should be free from fall Description: Interventions: 1. [place] to environment 2. Hourly rounds addressing the [...] non-skid footwear 11. Teach patient and patient business process representative to maintain environment for safety and [...] (cane, walker) within reach 19. Request patient business process representative bring adaptive equipment/mobility aids from home or obtain and provide as needed 20. Consult pharmacy regarding effects of med's affecting mobility, cognition, and alternatives 21. Obtain physician order for PT if risk factors associated with mobility are present 22. Obtain physician order for OT as appropriate 23. Utilize diversional activities 24. Educate patient and patient business process representative how to maintain a safe environment during visitation times (notify nurse prior to leaving bedside) 25. Consider appropriateness of medical or non-certified medical biller 26. Set up voiding schedule as appropriate (every 2 hours) Outcome: Progressing Note: Evaluation of progress towards goal: Bed locked and lowered to lowest setting. Call greco within reach, personal items within reach. Problem: Pain Goal: Patient goal is pain score less than 4, able to rest, and participant in treatment plan as appropriate Description: INTERVENTIONS: 1. Encourage patient or legal business process representative to report early pain and ask [...] per policy 9. Teach patient or legal business process representative interventions for comforting Outcome: Progressing Note: [...] at the bedside 7. Instruct patient/ patient business process representative about use of safety devices 8. Include patient/ patient business process representative in decisions related to safety Outcome: [...] hygiene technique. 7. Identify and instruct patient/patient business process representative in use of appropriate isolation precautions for identified infection/symptoms. 8. Provide and discuss with patient/patient business process representative on educational MDRO sheet. 9. Encourage and monitor nutritional status daily and consult inventory worker if indicated. 10. Implement neutropenic guidelines as needed. Outcome: Progressing Note: Evaluation of progress towards goal: Patient has no current signs and symptoms of infection; monitoring vitals and labs Problem: Knowledge Deficit Goal: Patient/patient business process representative demonstrates understanding of disease process, treatment [...] Patient with [facility] ([place] [address]) [address] [place] [phone] Images from the original note were not [...] Provided Yes [facility] List Provided Home Care Clinical Statistics Manager met with patient, introduced self, and explained role. Patient educated on safe discharge plan. 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 Discharge plan home with [facility]. PCP: No primary care provider on file. Pharmacy:[facility] PCP and pharmacy confirmed with patient. CN [...] of progress towards goal: safe discharge to [facility] Care and daughter, friend [...] discharge planning process 5. Communicate referral to diabetic educator as appropriate 6. Communicate referral to inventory worker as appropriate 7. Collaborate with case management/perinatal social worker for discharge needs Outcome: Progressing Note: [...] discharge planning process 5. Communicate referral to diabetic educator as appropriate 6. Communicate referral to inventory worker as appropriate 7. Collaborate with case management/perinatal social worker for discharge needs Note: Evaluation of progress towards goal: pt request to meet social and political studies professor documented in this encounter [facility] 12-05-2024 Hospital course Narrative Images from the original note were not included. [facility] Discharge Summary Patient Name: Addie Jean Baptiste : 1975 PCP: No primary care provider on file. DATE OF ADMISSION: 12/02/2024 DATE OF DISCHARGE: 12/05/2024 PRIMARY DISCHARGE DIAGNOSIS: Acute onset bilateral vision loss secondary to hyperglycemia SECONDARY DISCHARGE DIAGNOSIS: Uncontrolled type 2 diabetes mellitus Hyperglycemia in setting of above Diabetic retinopathy [id number] diabetic macular edema right eye Seizure-like episode SOLO, resolved Elevated anion gap, resolved CONSULTANTS: Neurology, Ophthalmology [facility] COURSE SUMMARY: Addie Jean Baptiste is a [...] should follow up closely with her outpatient track repairer and neurologist. Patient was evaluated by PTOT recommended long term facility, patient refusing at this time. Therefore [...] Follow-ups to Schedule [facility] - [place], [place] Disease States/Services: Diabetes Adherence & Access [...] Independ wkstn Result Date: 10/02/2024 1 1 [facility] Heart Station [address] [place] [address] [phone] (fax) Echocardiogram-[facility] Name: ADDIE ORGAN Study Date: 10/01/2024 03:03 PM B/P: 127 mmHg/111 mmHg HR: Date of : 1975 Location: [facility] Height: 62 in. Age: 49 [...] versus fat pad. Procedure Staff Reading Group: [place] [facility] Events Traffic Controller: Varsha yHde RDCS Ordering Physician: JUAN C CRABTREE Cultures [...] Your Medications These medications were sent to [facility]/pharmacy #[id number] - [place], [place] - [address] [facility] [address], [place] [address] insulin glargine 100 unit/mL injection insulin lispro 100 unit/mL insulin pen pen needle, diabetic 32 gauge x 5/32 needle 37 minutes were spent on discharging this patient. Elda Aguirre MD documented in this encounter [facility] 12-05-2024 Hospital Discharge instructions Elda Aguirre MD - 12/05/2024 2:51 PM EDT If you have any questions regarding care after discharge please call your doctor. Please seek medical attention for symptoms that are worsening or not improving. If you are experiencing an emergency, call [phone]. Follow up with your primary care physician within 1-2 weeks of discharge please follow up with Neurology and Ophthalmology. Please follow up with her outpatient track repairer Please follow your medication reconciliation carefully for new medications, changes in doses or medications that were stopped. If new medications are prescribed at discharge you can find further information about these medications in your discharge paperwork. Rick Thomas - 12/04/2024 3:50 PM EDT YOUR SCHEDULED APPOINTMENTS Dec 07, 2024 10:00 AM (Arrive by 9:45 AM) New Patient with [facility] ([place] [address]) [address] [place] [phone] Pt. should bring the following to [...] For NEW patients, MD will not prescribe terminal manager pain medication. The following attachments cannot be sent through Care Everywhere.Checking your blood sugar at home ([place])Insulin Lispro, ADULT ([place])Insulin Glargine, ADULT ([place])Aspirin, ADULT ([place])Atorvastatin, ADULT ([place])Metformin, ADULT ([place])Levetiracetam, ADULT ([place])documented in this encounter [facility] 12-05-2024 Progress note Formatting of t his note might be different from the original. DISCHARGE PLANNING NOTE Referral to [facility]- P# ; F# , [address] (P# ; F# ) , [facility] and [facility]) (P# ; F# ) [facility] 12-05-2024 Progress note Formatting of t his [...] decline resulting from hospital admission 12/02/24 from H with sudden onset vision loss B eyes. EMS witnessed seizure x5 seconds CT brain (-); Blood sugar 640- transferred to [facility] Neuro- MRI brain; B vision loss likely 2/2 hyperglycemic refraction error PMH- bipolar Dx- diabetic retinopathy, mild-moderate diabetic macular edema R eye Past Medical History: Diagnosis Date Arrhythmia Arthritis Bipolar disorder ([facility] [place] [place] Bronchitis, chronic ([facility] [place] [place]) Chronic constipation Chronic kidney disease Depression Diabetes mellitus type 2, controlled ([facility] [place] [place]) 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 Meningitis Sudden [...] 6 Clicks: Basic Mobility Raw Score: 14 [facility] G Code Modifier: CK PT Treatment/Interventions: Functional [...] eval Equipment: RW, gait belt, ex cath Telemetry/Office Communication Professor: Yes Oxygen Used: room air Other: (S) [...] Patient will perform bed mobility with Modified [place] Dates: Start: 12/05/24 Expected End: 12/22/24 Description: [...] vision Active Problems: Hyperosmolar hyperglycemic state (HHS) (CMS-HCC) SOLO (acute kidney injury) HHS (hypothenar hammer syndrome) [facility] 12-05-2024 Progress note Formatting of t [...] transition rounds, barriers to discharge are: PT/OT evals, needs to follow up with endocinologist, and new PCP appt was made by [facility]. . Discharge Plan: Home with Home care. CN met with patient. Patient provided choices for Home care CN tasked to send referrals to [address] and [facility] home care. Patient stated she lives on the first floor of her daughter's home off the dining room and her son lives in the basement. Supervisor [employer]ig[employer] Making Machine will continue to follow for any discharge needs. - Crista Leung RN 12/05/24 11:52 AM Addendum: PT/OT rec SNF. CN met with patient and discussed therapy recommendation. Patient stated NO to SNF option. [address] is possibly accepting for home care. Waiting on final decision from [address] Patient insists she lives on the first floor and her son is the one who lives In the basement bedroom. CN tried to call daughter. - Crista Leung RN 12/05/24 1:04 PM Blood sugars have stablized and patient will be discharged today.. CN met with patient to discuss that [address] home care could accept referral and patient stated she will have to Call Medicaid provider for transport. CN stayed to verify with Medicaid transport provider that the patient is discharging from [facility] going home, cab transport arranged for 4pm at [facility] A. Nurse and attending physician notified . DC CRF completed and [facility] tasked to send DC orders to [address] Home care. - Crista Leung RN 12/05/24 3:35 PM [employer] 12-05-2024 Progress note Formatting of t his [...] None Scoring Daily Activity Raw Score: 16 [facility] G Code Modifier: CK Therapy Plan Need for skilled Occupational Therapy to address deficits in ADL independence and functional mobility due to a status decline resulting from B vision loss Pt admitted 12/02 from OSH with sudden onset vision loss B eyes. EMS witnessed seizure x5 seconds CT brain (-); Blood sugar 640- transferred to [facility] Neuro- MRI brain; B vision loss likely 2/2 hyperglycemic refraction error PMH- bipolar Dx- diabetic retinopathy, mild-moderate diabetic macular edema R eye Past Medical History: Diagnosis Date Arrhythmia Arthritis Bipolar disorder ([facility] [place] Bronchitis, chronic ([facility] [place] [place]) Chronic constipation Chronic kidney disease Depression Diabetes mellitus type 2, controlled ([facility] [place] [place]) 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 Encourage patient or legal business process representative to report early pain and ask [...] per policy 9. Teach patient or legal business process representative interventions for comforting Outcome: Progressing Note: [...] at the bedside 7. Instruct patient/ patient business process representative about use of safety devices 8. Include patient/ patient business process representative in decisions related to safety Outcome: Progressing Note: Evaluation of progress towards goal: Patient remains injury-free amid hospitalization due to proper safety precautions. Rafael Chavira RN [facility] [facility] [place] 12-05-2024 Plan of care note Problem: Glucose [...] Score of =/> 25 or indicated by [facility] Assessment Goal: Patient should be free from fall Description: Interventions: 1. [place] to environment 2. Hourly rounds addressing the [...] non-skid footwear 11. Teach patient and patient business process representative to maintain environment for safety and [...] (cane, walker) within reach 19. Request patient business process representative bring adaptive equipment/mobility aids from home or obtain and provide as needed 20. Consult pharmacy regarding effects of med's affecting mobility, cognition, and alternatives 21. Obtain physician order for PT if risk factors associated with mobility are present 22. Obtain physician order for OT as appropriate 23. Utilize diversional activities 24. Educate patient and patient business process representative how to maintain a safe environment during visitation times (notify nurse prior to leaving bedside) 25. Consider appropriateness of medical or non-certified medical biller 26. Set up voiding schedule as appropriate (every 2 hours) Outcome: Progressing Note: Evaluation of progress towards goal: Bed locked and lowered to lowest setting. Call greco within reach, personal items within reach. Problem: Pain Goal: Patient goal is pain score less than 4, able to rest, and participant in treatment plan as appropriate Description: INTERVENTIONS: 1. Encourage patient or legal business process representative to report early pain and ask [...] per policy 9. Teach patient or legal business process representative interventions for comforting Outcome: Progressing Note: [...] at the bedside 7. Instruct patient/ patient business process representative about use of safety devices 8. Include patient/ patient business process representative in decisions related to safety Outcome: [...] hygiene technique. 7. Identify and instruct patient/patient business process representative in use of appropriate isolation precautions for identified infection/symptoms. 8. Provide and discuss with patient/patient business process representative on educational MDRO sheet. 9. Encourage and monitor nutritional status daily and consult inventory worker if indicated. 10. Implement neutropenic guidelines as needed. Outcome: Progressing Note: Evaluation of progress towards goal: Patient has no current signs and symptoms of infection; monitoring vitals and labs Problem: Knowledge Deficit Goal: Patient/patient business process representative demonstrates understanding of disease process, treatment plan, medications, and discharge instructions Description: INTERVENTIONS 1. Complete learning assessment and assess knowledge base 2. Provide teaching at level of understanding 3. Provide teaching via preferred learning method(s) Outcome: Progressing Note: Evaluation of progress towards goal: Patient verbalizes understanding of treatment plan, medications, and discharge plans. [facility] [place] 12-04-2024 Progress note Formatting of t his note is different from the original. DISCHARGE PLANNING NOTE Dec 07, 2024 10:00 AM (Arrive by 9:45 AM) New Patient with Lindsay Johnson APRN-BEATRIZ [facility] ([place] [id number]) [address] [place] [id number] [facility] 12-04-2024 History of Present illness Narrative Images from the original note were not included. [facility] Progress Note Subjective SUBJECTIVE No [...] vision loss secondary to hyperglycemia Diabetic retinopathy Ytup-oj-ootaqipt diabetic macular edema right eye Seizure-like episode [...] Elda Aguirre MD documented in this encounter [employer] 12-04-2024 Progress note Formatting of t his [...] Provided Yes [employer] List Provided Home Care Clinical Statistics Manager met with patient, introduced self, and explained role. Patient educated on safe discharge plan. 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 Discharge plan home with [facility]. PCP: No primary care provider on file. Pharmacy:[facility] PCP and pharmacy confirmed with patient. CN offered to assist with follow up appointment arrangements; patient agreeable, tasked appointment to [facility]. No primary care provider on file. added to Follow Up Providers for Summary of Care communication. Per patient self-report: Drug use: denies Smokinppd ETOH Use: denies Current discharge plan is: Home with daughter support and home care services. Choice list given for home care agencies. Tasked CN to assist with finding patient new PCP. [...] of progress towards goal: safe discharge to [facility] with [facility] Care and daughter, friend support Will continue to follow as plan of care develops. CN discussed benefits and importance of medication compliance and follow ups. Please feel free to reach out for any discharge planning questions. - Ezra Will RN 12/04/24 12:42 PM [facility] [place] 12-04-2024 Plan of care note Problem: Glucose Imbalance Goal: Clinical indication of glucose balance is achieved Description: Patient's goal is: INTERVENTIONS 1. Monitor blood glucose levels as ordered 2. Administer medications as ordered 3. Notify physician of ineffective treatment plan Outcome: Progressing Note: Evaluation of progress towards goal: pt off insulin drip, continue education and s/s coverage blood glucose improved but still elevated [facility] [place] 12-04-2024 Plan of care note Problem: Glucose [...] discharge planning process 5. Communicate referral to diabetic educator as appropriate 6. Communicate referral to inventory worker as appropriate 7. Collaborate with case management/perinatal social worker for discharge needs Outcome: Progressing Note: Evaluation of progress towards goal: [facility] [place] 12-03-2024 Progress note Formatting of t his note might be different from the original. [facility] Transfer Accept Note I have received a request for transfer of primary service for this patient from the neurology team. Clinical handoff report was given. [facility] will assume care as primary team of this patient starting 12/04/24 at 7:00 am. LIANNE MCCORMICK MD 12/03/2024 [facility] 12-03-2024 Consult note Formatting of th [...] using 2.5% Anibal-Synephrine and 1% Mydriacyl OU [place] sharp margins OU Cup/Disc Ratio 0.3 [...] with additional background diabetic retinopathy and possible zkam-br-lileaqis diabetic macular edema. The patient's profound visual complaints most likely was secondary to hyperglycemic refractive error. With control of the patient's diabetes vision is suspected to returned to baseline level in 2-4 weeks. The vision has been advised to follow-up with retina specialist Dr. Jonas Casey at [facility] and also to see regular professional system administrator for refractive care.. Thanks Esvin Ibrahim MD, FACS. [facility] 12-03-2024 Consult note Formatting of th [...] using 2.5% Anibal-Synephrine and 1% Mydriacyl OU [place] sharp margins OU Cup/Disc Ratio 0.3 [...] with additional background diabetic retinopathy and possible trjl-bj-mgrhkdor diabetic macular edema. The patient's profound visual complaints most likely was secondary to hyperglycemic refractive error. With control of the patient's diabetes vision is suspected to returned to baseline level in 2-4 weeks. The vision has been advised to follow-up with retina specialist Dr. Jonas Casey at [facility] and also to see regular professional system administrator for refractive care.. Thanks Esvin Ibrahim MD, FACS. Associated Order(s): IP CONSULT TO INTERNAL MEDICINE Images from the original note were not included. [facility] 12/03/2024 Patient Name: [...] History: Diagnosis Date Arrhythmia Arthritis Bipolar disorder ([facility]) Bronchitis, chronic ([facility] [place] Chronic constipation Chronic kidney disease Depression Diabetes mellitus type 2, controlled ([facility] [place] Meningitis Sudden loss of vision 12/02/2024 Past [...] of vision 12/03/2024 Hyperosmolar hyperglycemic state (HHS) ([facility]) 12/03/2024 SOLO (acute kidney injury) 12/03/2024 Resolved [...] She is interested in following up with [facility]. If she is able to [...] pm documented in this encounter [facility] [place] 12-03-2024 Plan of care note Problem: Glucose [...] discharge planning process 5. Communicate referral to diabetic educator as appropriate 6. Communicate referral to inventory worker as appropriate 7. Collaborate with case management/perinatal social worker for discharge needs Note: Evaluation of progress towards goal: pt request to meet social and political studies professor [employer] [facility] 12-03-2024 Consult note Associated Order (s): IP CONSULT TO INTERNAL MEDICINE Images from the original note were not included. [facility] Consultation 12/03/2024 Patient Name: Addie [...] History: Diagnosis Date Arrhythmia Arthritis Bipolar disorder ([facility] [place] Bronchitis, chronic ([facility] [place] Chronic constipation Chronic kidney disease Depression Diabetes mellitus type 2, controlled ([facility] [place] Meningitis Sudden loss of vision 12/02/2024 Past [...] Intake/Output Summary (Last 24 hours) at 12/03/2024 0936 Last data filed at 12/03/2024 0831 Gross [...] She is interested in following up with [facility]. If she is able to [...] Available from 7 am to 7 pm [employer] 12-03-2024 History and physical note Images from the original note were not included. [facility] Neurology General Neurology Primary Admission Note Primary Neurology service: [phone] Chief Complaint: Vision loss History: Addie Jean [...] hyperglycemic at [facility]. Patient was transferred to [facility] for further management. Upon arrival to [facility], patient notes that her vision is [...] History: Diagnosis Date Arrhythmia Arthritis Bipolar disorder ([facility]) Bronchitis, chronic ([facility] [place] Chronic constipation Chronic kidney disease Depression Diabetes mellitus type 2, controlled ([facility] [place] Meningitis Family History: No family history on [...] Strain: Low Risk (10/01/2024) Received from [facility] Overall Financial Resource Strain (CARDIA) Difficulty of Paying Living Expenses: Not hard at all Food Insecurity: No Food Insecurity (10/01/2024) Received from [facility] Hunger Vital Sign Within the past 12 months, you worried that your food would run out before you got the money to buy more.: Never true Ran Out of Food in the Last Year: Not on file Transportation Needs: No Transportation Needs (10/01/2024) Received from [facility] Transportation In the past 12 months, has lack of transportation kept you from medical appointments or from getting medications?: No Lack of Transportation (Non-Medical): Not on file Physical Activity: Not on file Stress: Not on file Social Connections: Not on file Interpersonal Safety: Unknown (10/01/2024) Received from [facility] Humiliation, Afraid, Rape, and Kick questionnaire Fear of Current or Ex-Partner: No Emotionally Abused: Not on file Physically Abused: Not on file Sexually Abused: Not on file Housing Instability: Low Risk (10/01/2024) Received from [facility] Housing Stability Vital Sign In the last 12 months, was there a time when you were not able to pay the mortgage or rent on time?: No Number of Times Moved in the Last Year: Not on file At any time in the past 12 months, were you homeless or living in a correction (including now)?: No Medications: None Allergies: Allergies [...] light touch throughout. Cerebellar: Able to do eyzowf-cx-lnsw bilaterally; normal coordination Gait and station: Deferred [...] BMP. Hanna Mari MD PGY3 Neurology [facility] Staffed with: (Dr Vargas) This patient is being followed by the Neurology Resident service. Contact attending directly during these hours: Thursday to 7:30-8:30 A.M. to Thursday 12-1:00 p.m. Primary Neurology service: [phone] Consult neurology service: [phone] Resident Stroke Service: [phone] If the patient belongs to the Stroke [facility] service please contact the Stroke [facility]IDA directly. Cosigned by Vanessa Vargas MD at 12/03/2024 6:02 PM EDT Associated attestation - Vanessa Vargas MD - 12/03/2024 6:02 PM EDT I reviewed the resident's note and discussed the case with the resident. This specific service will not be billed. Additional findings/notes: case was discussed over the phone [employer] Work Phone: 12-03-2024 History and physical note Images from the original note were not included. [facility] Neurology General Neurology Primary Admission Note Primary Neurology service: [phone] Chief Complaint: Vision loss History: Addie Jean [...] hyperglycemic at [facility]. Patient was transferred to [facility] for further management. Upon arrival to [facility], patient notes that her vision is [...] History: Diagnosis Date Arrhythmia Arthritis Bipolar disorder ([facility]) Bronchitis, chronic ([facility] [place] Chronic constipation Chronic kidney disease Depression Diabetes mellitus type 2, controlled ([facility] [place] Meningitis Family History: No family history on [...] Strain: Low Risk (10/01/2024) Received from [facility] Overall Financial Resource Strain (CARDIA) Difficulty of Paying Living Expenses: Not hard at all Food Insecurity: No Food Insecurity (10/01/2024) Received from [facility] Hunger Vital Sign Within the past 12 months, you worried that your food would run out before you got the money to buy more.: Never true Ran Out of Food in the Last Year: Not on file Transportation Needs: No Transportation Needs (10/01/2024) Received from [facility] Transportation In the past 12 months, has lack of transportation kept you from medical appointments or from getting medications?: No Lack of Transportation (Non-Medical): Not on file Physical Activity: Not on file Stress: Not on file Social Connections: Not on file Interpersonal Safety: Unknown (10/01/2024) Received from [facility] Humiliation, Afraid, Rape, and Kick questionnaire Fear of Current or Ex-Partner: No Emotionally Abused: Not on file Physically Abused: Not on file Sexually Abused: Not on file Housing Instability: Low Risk (10/01/2024) Received from [facility] Housing Stability Vital Sign In the last 12 months, was there a time when you were not able to pay the mortgage or rent on time?: No Number of Times Moved in the Last Year: Not on file At any time in the past 12 months, were you homeless or living in a correction (including now)?: No Medications: None Allergies: Allergies [...] light touch throughout. Cerebellar: Able to do iftyjc-oh-uuyo bilaterally; normal coordination Gait and station: Deferred [...] BMP. Hanna Mari MD PGY3 Neurology [facility] Staffed with: (Dr Vargas) This patient is being followed by the Neurology Resident service. Contact attending directly during these hours: Thursday to 7:30-8:30 A.M. to Thursday 12-1:00 p.m. Primary Neurology service: [phone] Consult neurology service: [phone] Resident Stroke Service: [phone] If the patient belongs to the Stroke [...] over the phone documented in this encounter [facility] 11-21-2024 Telephone encounter Note Shon 10/24/24 [facility] 11-21-2024 Miscellaneous Notes Shon 10/24/24 documented in this encounter [facility] 11-04-2024 History of Present illness Narrative Opened for pre-charting. Patient not seen today, no show. documented in this encounter [facility] 10-11-2024 Telephone encounter Note Pt informed of rx sent. Pharmacy updated to verify new rx and verbalized understanding. Will fill for pt today. [facility] 10-11-2024 Miscellaneous Notes Pt informed of rx [...] a prior auth for water therapy in [place], [place]. [place] is where [place] now. pt will call back with information of faclity. Shon 09/23/24 documented in this encounter [facility] 10-10-2024 Telephone encounter Note Patient was given 14 day supply on 09/23/24 pending UDS results (in media, consistent) so she would have been due to fill on 10/07/24. This RX is written to be filled on 10/23/24, ALSO - it is also only written for 14 day supply. Please correct and resend. [facility] 10-06-2024 Telephone encounter Note Pt is asking for a prior auth for water therapy in [place], [place]. This is where pt lives now. pt will call back with information of faclity. [facility] 10-06-2024 Telephone encounter Note Shon 09/23/24 [facility] 10-05-2024 Note SW notified that grace reis is ready for discharge. Dtr cannot transport her home. Pt called [employer] transportation line and speaker call made to schedule transport home. Address corrected in [facility] system to [facility]. Updates sent to [facility] providers to seek out accepting provider with new home address. Awaiting accepting provider. RACQUEL added information to AVS that we will call patient once we receive responses from [facility]. 5pm. Patient missed [facility]. She tried to reach out to insurance again but placed on hold. small appliance assembly supervisor agreed to call [employer] for patient to get her home. 10/06/24 RACQUEL has not rec'd any accepting [facility] out of 22 referrals. RACQUEL attempted to call patient -VM was full unable to leave a message. RACQUEL attempted to call dtr-no answer. No home health has been located for this patient. [facility] 10-05-2024 Note Physical Therapy Physical Therapy Treatment Patient Name: Addie Jean Baptiste : 1975 Today's Date: 10/05/2024 Patient Active Problem List Diagnosis NSTEMI (non-ST elevated myocardial infarction) ([facility]) Type 2 diabetes mellitus with circulatory disorder, with long-term current use of insulin ([facility]) Sick sinus syndrome ([facility]) Acute renal failure with acute tubular necrosis superimposed on stage 3a chronic kidney disease ([facility]) Seizure ([facility]) Bipolar 1 disorder ([facility]) Acquired hypothyroidism Class 3 severe obesity due to excess calories with serious comorbidity and body mass index (BMI) of 50.0 to 59.9 in adult Plantar ulcer of left foot, limited to breakdown of skin ([facility]) Hypocalcemia Start Time: 1348 Stop Time: 1407 Time Calculation (min): 19 min PT Therapeutic Procedures Time Entry Therapeutic Activity Time Entry: 19 Objective General Visit Information: PT Last Visit PT Received On: 10/05/24 General Subjective: I was hoping to take a nap. Pt has d/c orders and summary completed. Isael RN reports pt is leaving and dtr will [...] to enter home. Pt becomes frustrated with caption writer's questions re: PLOF, home safety, assistance [...] 1: [employer] (more content not included)... [facility] 10-05-2024 Note Attestation signed by Leonardo [...] edema, morbid obesity who was taken to [facility] ED as she was noted to [...] were noted to be elevated 180-->166 pg/mL. [facility] Cardiology was consulted from [facility] and she is transferred here for [...] aspirin, 81 m (more content not included)... [facility] 10-05-2024 Note Hospital Medicine Discharge Summary Final Discharge Diagnosis: NSTEMI (non-ST elevated myocardial infarction) ([facility]/HCC) due to demand ischemia Type 2 diabetes mellitus with circulatory disorder, with long-term current use of insulin ([facility]/HCC) Sick sinus syndrome ([facility]) Acute renal failure with acute tubular necrosis superimposed on stage 3a chronic kidney disease (CMS/HCC) Seizure (CMS/HCC) Bipolar 1 disorder (CMS/HCC) Acquired hypothyroidism Class 3 severe obesity due to excess calories with serious comorbidity and body mass index (BMI) of 50.0 to 59.9 in adult Plantar ulcer of left foot, limited to breakdown of skin (CMS/HCC) Hypocalcemia Admission Diagnosis: NSTEMI (non-ST elevated myocardial infarction) (CMS/HCC) [I21.4] Hospital course: Addie Jean Baptiste is [...] edema, morbid obesity who was taken to [facility] ED as she was noted to [...] 180-->166 pg/mL. NSTEMI (non-ST elevated myocardial infarction) ([facility]) - cards consulted - likely demand ischemia [...] disorder, with long-term current use of insulin ([facility]) - HgbA1C 10.7 - in insulin pump at home - may resume medications at discharge Sick sinus syndrome ([facility]) - s/p pacemaker - interrogation ordered- did review interrogation report with cardiology. Report is stable. No issues seen on report Acute renal failure with acute tubular necrosis superimposed on stage 3a chronic kidney disease ([facility]) -Cr improved today to 1.26 - renal US negative - neph consulted during the stay. Patient did improve. Recommend to follow up outpatient Seizure ([facility]) - neuro consulted at admission - Continue LEV 1g BID at least until outpt neuro follow up - Patient will need referral to [facility] neurology (for epileptologist) at discharge. - Neuro will sign off. Bipolar 1 disorder (CMS/HCC) - continue celexa 40mg daily - continue [...] left foot, limited to breakdown of skin ([facility]) - vascular surgery consulted No plans for debridement at this time. No antibiotics necessary. Upon inspection today this is not ulcer but rather a dry callus, no open tissue present. Recommend to keep callus clean and dry and follow up outpatient follow up with her white mixing operator for routine callus paring. No need for paring this admission. Arter (more content not included)... [facility] 10-04-2024 Note RACQUEL requested with gudelia alvarado consult today for [facility]. Patient has hx of a provider that served [employer] that drove the R&V . She said it was [place] something . Referral made to [facility]. Patient states she doesn't have current [...] insurance due to 5 yr look back. RACQUEL advised she will look for donated walker for discharge if available. [facility] 10-04-2024 Note Occupational Therapy Occupational Therapy Evaluation Patient Name: Addie Jean Baptiste : 1975 Today's Date: 10/04/2024 Start Time: 1345 Stop Time: 1413 Time Calculation (min): 28 min OT Evaluation Time Entry OT Evaluation (Moderate) Time Entry: 28 General Subjective: Patient stated she was recently evicted from her home in [facility]. Patient is now living with her sister in [place]. Patient agreed to get up to the [...] List Diagnosis NSTEMI (non-ST elevated myocardial infarction) ([facility]) Type 2 diabetes mellitus with circulatory disorder, with long-term current use of insulin ([facility]) Sick sinus syndrome ([facility]) Acute renal failure with acute tubular necrosis superimposed on stage 3a chronic kidney disease ([facility]) Seizure ([facility]) Bipolar 1 disorder ([facility]) Acquired hypothyroidism Class 3 severe obesity due to excess calories with serious comorbidity and body mass index (BMI) of 50.0 to 59.9 in adult Plantar ulcer of left foot, limited to breakdown of skin ([facility]) Hypocalcemia Past Medical History: Diagnosis Date Anxiety Bipolar 1 disorder ([facility]) Cardiac arrest ([facility]) 2019 Chronic back pain Chronic kidney disease Coronary artery disease Depression Diabetes mellitus ([facility]) Hypertension Insomnia Pacemaker Schizoaffective disorder ([facility]) Seizures ([facility]) Stroke ([facility]) Past Surgical History: Procedure Laterality Date CARDIAC [...] Level of Function Prior Function Level of [place]: Independent with ADLs and functional transfers, Needs [...] but patient perfo (more content not included)... [facility] 10-04-2024 Note Physical Therapy Physical Therapy [...] Pt is 49 y.o female presenting to [facility] ED following tonic-clonic seizure and [...] List Diagnosis NSTEMI (non-ST elevated myocardial infarction) ([facility]) Type 2 diabetes mellitus with circulatory disorder, with long-term current use of insulin ([facility]) Sick sinus syndrome ([facility]) Acute renal failure with acute tubular necrosis superimposed on stage 3a chronic kidney disease ([facility]) Seizure ([facility]) Bipolar 1 disorder ([facility]) Acquired hypothyroidism Class 3 severe obesity due to excess calories with serious comorbidity and body mass index (BMI) of 50.0 to 59.9 in adult Plantar ulcer of left foot, limited to breakdown of skin ([facility]) Hypocalcemia Past Medical History: Diagnosis Date Anxiety Bipolar 1 disorder ([facility]) Cardiac arrest ([facility]) 2019 Chronic back pain Chronic kidney disease Coronary artery disease Depression Diabetes mellitus ([facility]) Hypertension Insomnia Pacemaker Schizoaffective disorder ([facility] Seizures ([facility]) Stroke ([facility]) Past Surgical History: Procedure Laterality Date CARDIAC [...] House Lives With: Family (Daughter, son, and [id number]) Home Living Comments: Pt states she was living with her son and DIL in [place] however the landlord kicked them out within the past week so they moved to [place] into her daughter's Home Layout: Two level, [...] Level of Function Prior Function Level of [place]: Independent with ADLs and functional transfers, Needs [...] Breaks: 2 Act (more content not included)... [facility] 10-04-2024 Note - s/p pacemaker - interrogation ordered- asked RN to call rep [facility] 10-04-2024 Note - HgbA1C 10.7 - in insulin pump at home - Glu 96-211 - currently lantus 12 units bid - currently ISS [facility] 10-04-2024 Note - continue celexa 40 mg daily - continue pamelor 25mg nightly - continue seroquel 400mg nightly [facility] 10-04-2024 Note - encourage weight l oss - may benefit from a GLP-1 inhibitor, defer to PCP [facility] 10-04-2024 Note - cards consulted - likely demand ischemia in setting of acute kidney injury, and seizure episode and elevated lactate. [employer] device interrogation No current indication for heparin as her troponin is trending downward and patient is asymptomatic and having epistaxis. Aspirin 81 mg daily and Toprol 50 mg. Further recommendations to follow depending on echocardiogram results. [facility] 10-04-2024 Note - neuro consulted at admission - Continue LEV 1g BID at least until outpt neuro follow up - Patient will need referral to [facility] neurology (for epileptologist) at discharge. - Recommend PT/OT. - Neuro will sign off. [facility] 10-04-2024 Note - last TSH 3.71 - cont levothyroxine 75mcg daily [facility] 10-04-2024 Note - vascular surgery c onsulted No plans for debridement at this time. No antibiotics necessary. Upon inspection today this is not ulcer but rather a dry callus, no open tissue present. Recommend to keep callus clean and dry and follow up outpatient follow up with her white mixing operator for routine callus paring. No need for [...] up with our service at this time [facility] 10-04-2024 Note -Cr improved today t o 1.75 - renal US negative - neph consulted [facility] 10-04-2024 Note - Ca 8.2 today - daily CBC Consult PT/OT/LABORATORY MECHANIC HELPER Will DC ene [facility] 10-04-2024 Note Hospital Medicine Daily Progress Note - 10/04/2024 12:12 PM; Room: [address] [place] [address] Admission: 10/01/2024 9:19 AM; Length of stay: 3 days THE HOSPITALIST TEAM PREFERS TO USE [employer] FOR NON-URGENT COMMUNICATION 7AM-7PM. IF I DO NOT RESPOND WITHIN 20 MINUTES OR URGENT MATTERS, PLEASE CALL THROUGH THE NUCLEAR MEDICINE OFFICER. FROM 7PM-7AM, PLEASE PAGE [phone](COVR). Code Status: Full Code Barriers to Discharge: [...] edema, morbid obesity who was taken to [facility] ED as she was noted to [...] discomfort over the past week, moderate intensity 02/01, aching in nature sometimes lasting for few [...] & Plan NSTEMI (non-ST elevated myocardial infarction) ([facility]) - cards consulted - likely demand ischemia [...] disorder, with long-term current use of insulin ([facility]) - HgbA1C 10.7 - in insulin pump at home - Glu 96-211 - currently lantus 12 units bid - currently ISS Sick sinus syndrome ([facility]) - s/p pacemaker - interrogation ordered- asked RN to call rep Acute renal failure with acute tubular necrosis superimposed on stage 3a chronic kidney disease ([facility]) -Cr improved today to 1.75 - renal US negative - neph consulted Seizure ([facility]) - neuro consulted at admission - Continue LEV 1g BID at least until outpt neuro follow up - Patient will need referral to [facility] neurology (for epileptologist) at discharge. - Recommend PT/OT. - Neuro will sign off. Bipolar 1 disorder ([facility]) - continue celexa 40mg daily - continue [...] foot, limited to breakdown of skin (CMS/HCC) - vascular surgery consulted No plans for debridement at th (more content not included)... [facility] 10-03-2024 Note Ca 6.6 - albumin 2.5, corrected calcium 7.4 - will give one gram of calcium [facility] 10-03-2024 Note -Cr improved today t o 1.89 - renal US negative - neph consulted [facility] 10-03-2024 Note - vascular surgery c onsulted No plans for debridement at this time. No antibiotics necessary. Upon inspection today this is not ulcer but rather a dry callus, no open tissue present. Recommend to keep callus clean and dry and follow up outpatient follow up with her white mixing operator for routine callus paring. No need for [...] up with our service at this time [facility] 10-03-2024 Note Attestation with edits by [...] edema, morbid obesity who was taken to [facility] ED as she was noted to [...] were noted to be elevated 180-->166 pg/mL. [facility] Cardiology was consulted from [facility] and she is transferred here for [...] No edema. N (more content not included)... [facility] 10-03-2024 Note - neuro consulted at admission - Continue LEV 1g BID at least until outpt neuro follow up - Patient will need referral to [facility] neurology (for epileptologist) at discharge. - Recommend PT/OT. - Neuro will sign off. [facility] 10-03-2024 Note - last TSH 3.71 - cont levothyroxine 75mcg daily [facility] 10-03-2024 Note - encourage weight l oss - may benefit from a GLP-1 inhibitor, defer to PCP [facility] 10-03-2024 Note - continue celexa 40 mg daily - continue pamelor 25mg nightly - continue seroquel 400mg nightly [facility] 10-03-2024 Note - HgbA1C 10.7 - in insulin pump at home - Glu 115-413 - currently lantus 12 units bid - currently ISS - will discuss insulin dosing with pharmacy today [facility] 10-03-2024 Note - s/p pacemaker - interrogation ordered [facility] 10-03-2024 Note - cards consulted - [...] results. Cardiology team will continue to follow [facility] 10-03-2024 Note Hospital Medicine Daily Progress Note - 10/03/2024 10:32 AM; Room: [facility]/5160-01 Admission: 10/01/2024 9:19 AM; Length of stay: 2 days THE HOSPITALIST TEAM PREFERS TO USE [employer] CHAT FOR NON-URGENT COMMUNICATION 7AM-7PM. IF I DO NOT RESPOND WITHIN 20 MINUTES OR URGENT MATTERS, PLEASE CALL THROUGH THE NUCLEAR MEDICINE OFFICER. FROM 7PM-7AM, PLEASE PAGE [phone](COVR). Code Status: Full Code Barriers to Discharge: [...] edema, morbid obesity who was taken to [facility] ED as she was noted to [...] & Plan NSTEMI (non-ST elevated myocardial infarction) ([facility]) - cards consulted - likely demand ischemia [...] disorder, with long-term current use of insulin ([facility]) - HgbA1C 10.7 - in insulin pump at home - Glu 115-413 - currently lantus 12 units bid - currently ISS - will discuss insulin dosing with pharmacy today Sick sinus syndrome ([facility]) - s/p pacemaker - interrogation ordered Acute renal failure with acute tubular necrosis superimposed on stage 3a chronic kidney disease ([facility]) -Cr improved today to 1.89 - renal US negative - neph consulted Seizure ([facility]) - neuro consulted at admission - Continue LEV 1g BID at least until outpt neuro follow up - Patient will need referral to [facility] neurology (for epileptologist) at discharge. - Recommend PT/OT. - Neuro will sign off. Bipolar 1 disorder ([facility]) - continue celexa 40mg daily - continue [...] left foot, limited to breakdown of skin ([facility]) - vascular surgery consulted No plans for debridement at this time. No antibiotics necessary. Upon inspection tod (more content not included)... [facility] 10-03-2024 Note Attestation signed by Kelley Liang RD at 10/03/2024 2:16 PM I attest that I was present for nutrition assessment and agree with internal grinder set up operator's nutrition interventions and goals for pt. Adult Nutrition Assessment: Name: Addie Jean Baptiste Date: 1975 Date of Visit: 10/03/24 Admission Dx: NSTEMI (non-ST elevated myocardial infarction) ([facility]) [I21.4] Reason for assessment: high risk (L DFU) Information obtained from: patient, medical record, and nursing Past Medical History: Diagnosis Date Anxiety Bipolar 1 disorder ([facility]) Cardiac arrest ([facility]) 2019 Chronic back pain Chronic kidney disease Coronary artery disease Depression Diabetes mellitus ([facility]) Hypertension Insomnia Pacemaker Schizoaffective disorder ([facility]) Seizures ([facility]) Stroke ([facility]) Current Medications: aspirin, 81 mg, oral, Daily [...] (H) 10/01/2024 1102 HDL 49 10/01/2024 1102 BG POC: 105-413 Troponin 10/01: 72 Allergies: Allergies [...] ate all of her breakfast this morning (macedonian muffin, wick, juice/coffee). Pt states she has had diabetes (more content not included)... [facility] 10-03-2024 Note [facility] Vascular Surgery DAILY PROGRESS NOTE Subjective Patient [...] Agent, Strain, 3D, Bubble Study [facility] [address] [place] [address] [phone] (fax) Echocardiogram-[facility] Name: ADDIE ORGAN Study Date: 10/01/2024 03:03 PM B/P: 127 mmHg/111 mmHg HR: Date of : 1975 Location: [facility] Height: 62 in. Age: 49 [...] mmHg TR V (more content not included)... [facility] 10-02-2024 Note - last TSH 3.71 - cont levothyroxine 75mcg daily [facility] 10-02-2024 Note - encourage weight l oss - may benefit from a GLP-1 inhibitor, defer to PCP [facility] 10-02-2024 Note - Cr 3.0 today - neph consulted [facility] 10-02-2024 Note - HgbA1C 10.7 - in insulin pump at home - Glu 134-249 - currently lantus 12 units bid - currently ISS [facility] 10-02-2024 Note - cards consulted - [...] results. Cardiology team will continue to follow [facility] 10-02-2024 Note - s/p pacemaker - interrogation ordered [facility] 10-02-2024 Note - continue celexa 40 mg daily - continue pamelor 25mg nightly - continue seroquel 400mg nightly [facility] 10-02-2024 Note - vascular surgery c onsulted No plans for debridement at this time No antibiotics necessary Wash wound daily with soap and water, keep dry Will obtain arterial studies to evaluate for peripheral vascular disease [facility] 10-02-2024 Note - neuro consulted at admission - Continue LEV 1g BID at least until outpt neuro follow up - Patient will need referral to [facility] neurology (for epileptologist) at discharge. - Recommend PT/OT. - Neuro will sign off. [facility] 10-02-2024 Note Hospital Medicine Daily Progress Note - 10/02/2024 10:59 AM; Room: [address] [place], [place] [address]- Admission: 10/01/2024 9:19 AM; Length of stay: 1 days THE HOSPITALIST TEAM PREFERS TO USE [employer] CHAT FOR NON-URGENT COMMUNICATION 7AM-7PM. IF I DO NOT RESPOND WITHIN 20 MINUTES OR URGENT MATTERS, PLEASE CALL THROUGH THE NUCLEAR MEDICINE OFFICER. FROM 7PM-7AM, PLEASE PAGE [phone](COVR). Code Status: Full Code Barriers to Discharge: [...] edema, morbid obesity who was taken to [facility] ED as she was noted to [...] & Plan NSTEMI (non-ST elevated myocardial infarction) ([facility]) - cards consulted - likely demand ischemia [...] disorder, with long-term current use of insulin ([facility]) - HgbA1C 10.7 - in insulin pump at home - Glu 134-249 - currently lantus 12 units bid - currently ISS Sick sinus syndrome ([facility]) - s/p pacemaker - interrogation ordered Acute renal failure with acute tubular necrosis superimposed on stage 3a chronic kidney disease ([facility]) - Cr 3.0 today - neph consulted Seizure ([facility]) - neuro consulted at admission - Continue LEV 1g BID at least until outpt neuro follow up - Patient will need referral to [facility] neurology (for epileptologist) at discharge. - Recommend PT/OT. - Neuro will sign off. Bipolar 1 disorder ([facility]) - continue celexa 40mg daily - continue [...] left foot, limited to breakdown of skin ([facility]) - vascular surgery consulted No plans for debridement at this time No antibiotics necessary Wash wound daily with soap and water, keep dry Will obtain arterial studies to evalua (more content not included)... [facility] 10-02-2024 Note Attestation with edits by Juan C Crabtree MD at 10/02/2024 4:35 PM I personally saw and examined the patient on the same date of service as resident/fellow Dr Ho. I discussed the findings and therapeutic plan with the resident/fellow Dr Ho. I agree with the documentation, except for any edits/updates below. Teaching Physician's Revisions: None Juan C Crabtree MD, [facility] Cardiology Progress Note Subjective Subjective: Patient [...] BID, Malika Cantu MD, 12 Units at 10/01/246 insulin lispro (HumaLOG) injection 0-10 Units, 0-10 [...] Nightly, Malika Cantu MD, 25 mg at 10/01/242124 ondansetron ODT (Zofran-ODT) disintegrating tablet 4 mg, [...] Cantu MD, Last Rate: 75 mL/hr at 10/02/24251, 75 mL/hr at 10/02/24251 Insert peripheral IV, , , Once AND Saline lock IV, , , Once AND sodium chloride flush 10 mL, 10 mL, intravenous, q8h PRN, Malika Cantu MD tiZANidine (Zanaflex) tablet 4 mg, 4 mg, oral, TID, Malika Cantu MD, 4 mg at 10/01/242204 Objective: Patient Vitals for the past 24 [...] acute distress. Appearanc (more content not included)... [facility] 10-01-2024 Note [facility] General Neurology Consultation Initial Note DATE OF [...] syndrome s/p PPM implantation in 2011/ In 2016 underwent [...] were noted to be elevated 180-->166 pg/mL. [facility] Cardiology was consulted from [facility] and she is transferred here for further management. A summary from her [facility] neurologist on 08/2023 noted: 2008 - VIDEO EEG - 3 nonepileptic event - [facility] 2016 - EEG - low voltage, otherwise normal 12/2022 - ER - 3 seizures 08/2023 - ER - [facility] - few seizures, may have missed medications, left AMA She is on keppra 1000mg BID from previous neurologists. She also [facility] for left sided weakness, but [...] History: Diagnosis Date Anxiety Bipolar 1 disorder ([facility]) Cardiac arrest ([facility]) 2019 Chronic back pain Chronic kidney disease Coronary artery disease Depression Diabetes mellitus ([facility]) Hypertension Insomnia Pacemaker Schizoaffective disorder ([facility]) Seizures ([facility]) Stroke ([facility]) PAST SURGICAL HISTORY: Past Surgical History: Procedure [...] and Rash O (more content not included)... [facility] 10-01-2024 Note Hospital Medicine History and Physical 10/01/2024 9:31 AM THE HOSPITALIST TEAM PREFERS TO USE [employer] FOR NON-URGENT COMMUNICATION 7AM-7PM. IF I DO NOT RESPOND WITHIN 20 MINUTES OR URGENT MATTERS, PLEASE CALL THROUGH THE NUCLEAR MEDICINE OFFICER. FROM 7PM-7AM, PLEASE PAGE [phone](COVR). Chief Complaint Intermittent anginal episodes, elevated troponin [...] edema, morbid obesity who was taken to [facility] ED as she was noted to [...] discomfort over the past week, moderate intensity 02/01, aching in nature sometimes lasting for few [...] were noted to be elevated 180-->166 pg/mL. [facility] Cardiology was consulted from [facility] and she is transferred here for [...] problems, no radha (more content not included)... [facility] 09-29-2024 History of Present illness Narrative Faxed rx e-stim 09/28/24 documented in this encounter [facility] 09-27-2024 Note error AUTHENTICATED BY JIM VELEZ ON 09/27/2024 21:37:15 [facility] 09-26-2024 Note Erroneous encounter, patient not seen for office visit on this date. See documentation regarding seizure episodes in office lobby and transportation to ED. AUTHENTICATED BY STEPHANY PELAYO, ON 09/26/2024 08:41:02 [facility] 09-23-2024 Instructions Jim Velez, - 09/23/2024 11:13 AM EDT Continue Percocet 5-325 one tablet tid prn x 2 weeks until review of UDS Continue Lyrica 75mg one capsule twice daily Continue tizanidine 4mg two tablets nightly as needed Follow up with Podiatry for further evaluation of left ankle and foot pain Complete urine drug screen Please call Refill Line or send [employer] Refill Request to Pain Management office 7 days before each fill date, every month. Order physical therapy. Will complete MRI lumbar spine without contrast after physical therapy is completed Reorder TENS unit documented in this encounter [facility] 09-23-2024 History of Present illness Narrative General Pain Index Questionnaire- [facility] Date: 09/23/24 Patient Name: ___Addie [...] Totally unable to function Score ____50 (60) [facility] Interventional Pain Management Office Note [...] referral, TENS unit, and follow-up with new white mixing operator. 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 Sun, on the , as [...] ORTHOPEDIC SURGERY left foot surgery PACEMAKER INSERTION AZ AMPUTATION TOE METATARSOPHALANGEAL JOINT Left 04/01/2024 Procedure: AMPUTATION LEFT HALLUX; Surgeon: Shameka Castillo DPM; Location: [facility] Main OR; [...] total) by mouth daily . Dexcom G6 Bindery Machine Tender Misc Use as directed for continuous glucose [...] screen Please call Refill Line or send [employer] Refill Request to Pain Management office 7 [...] OPIOIDS Jim Velez DO Interventional Pain Management [facility] documented in this encounter [facility] 09-23-2024 Note [facility] Interventional Pain Management Office Note [...] left toe amputation. She reported severe pain (8-03/03), radiating from waist to feet with burning sensations, recent falls, and decreased mobility. - She was taking Percocet BID, Lyrica 75mg BID, and tizanidine. - Plan includes increasing Percocet to TID with 2-week supply, continuing Lyrica and tizanidine, ordering lumbar spine x-ray, physical therapy referral, TENS unit, and follow-up with new white mixing operator. 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 Sun, on the , as [...] Diagnosis Date Anx (more content not included)... [facility] 09-22-2024 Note Addie Jean Baptiste is a 49- year-old female patient of Stephany Pelayo PA-C who is presenting for follow-up visit. She does present in a wheelchair. I was walking a patient of mine out to the lobby when her invoice clerk flagged me down saying that she was losing consciousness in the lobby. When I approached patient she had her eyes open but was unresponsive. At that time I did call for assistance. Within about a minute patient did start talking to me and said that she has not been feeling good and has been dizzy and shaking. The invoice clerk with her said that he is not seeing her unresponsive like she was until just now. Staff members were able to start taking blood pressure at 2:18 PM with blood pressure at 139/85, heart rate 89 and oxygen was reading approximately 76% but patient has dark nail kosovan on. EMS was initiated at this time. [...] when EMS arrived. Patient was transferred to [facility] and taken to ED. During [...] AUTHENTICATED BY KARON BEARD, ON 09/22/2024 16:04:57 [facility] 09-22-2024 History of Present illness Narrative Addie Jean Baptiste is a 49-year-old female patient of Stephany Pelayo PA-C who is presenting for follow-up visit. She does present in a wheelchair. I was walking a patient of mine out to the lobby when her invoice clerk flagged me down saying that she was losing consciousness in the lobby. When I approached patient she had her eyes open but was unresponsive. At that time I did call for assistance. Within about a minute patient did start talking to me and said that she has not been feeling good and has been dizzy and shaking. The invoice clerk with her said that he is not seeing her unresponsive like she was until just now. Staff members were able to start taking blood pressure at 2:18 PM with blood pressure at 139/85, heart rate 89 and oxygen was reading approximately 76% but patient has dark nail kosovan on. EMS was initiated at this time. [...] when EMS arrived. Patient was transferred to [facility] and taken to ED. During [...] EMS took over. documented in this encounter [facility] 09-22-2024 Telephone encounter Note Pt had appt today but was sent to ED by pcp due to seizure in her office. She is out of Percocet. She didn't call for refill due to appt today. Appt rescheduled for tomorrow morning. [facility] 09-22-2024 Miscellaneous Notes Pt had appt today but was sent to ED by pcp due to seizure in her office. She is out of Percocet. She didn't call for refill due to appt today. Appt rescheduled for tomorrow morning. documented in this encounter [facility] 08-24-2024 History of Present illness Narrative Called pt to reschedule frida , unable to lvm documented in this encounter [facility] 08-04-2024 History of Present illness Narrative Pulse ox order faxed to [employer]. documented in this encounter [facility] 08-02-2024 Instructions Rafaela Castillo MA - 08/02/2024 3:12 PM EDT Call Neurology for your refills at [phone] Call [facility] to check on referrals at [phone] documented in this encounter [facility] 08-02-2024 [facility] [place] [address] Subjective Patient ID: Addie Jean Baptiste is [...] She has been receiving telehealth consultations from [facility], which she reports as beneficial. Asking for [...] scan, and is interested in seeing a clinical rehab specialist. She reports difficulty in ambulating due to foot pain, which is exacerbated by the formation of new blisters with each attempt to walk. She has an upcoming appointment with her white mixing operator on 08/12/2024 for multiple diabetic foot [...] She has an upcoming appointment with an track repairer at [facility]. Not routinely checking BG. She [...] Pacemaker Schizoaffective disorder (HCC) Seizures (HCC) Stroke ([facility]) Past Surgical History: Procedure Laterality Date CHOLECYSTECTOMY FOOT SURGERY HYSTERECTOMY ORTHOPEDIC SURGERY left foot surgery PACEMAKER INSERTION AZ AMPUTATION TOE METATARSOPHALANGEAL JOINT Left 04/01/2024 Procedure: AMPUTATION LEFT HALLUX; Surgeon: Shameka Castillo DPM; Location: [facility] Main OR; [...] (two) times a day . Dexcom G6 Bindery Machine Tender Misc Use as directed for continuous glucose [...] directed . ame (more content not included)... [facility] 08-02-2024 History of Present illness Narrative [facility] INTER[facility] MEDICINE [address] [place], [place] [id number] Subjective Patient ID: Addie Jean Baptiste is [...] She has been receiving telehealth consultations from [facility], which she reports as beneficial. Asking for [...] scan, and is interested in seeing a clinical rehab specialist. She reports difficulty in ambulating due to foot pain, which is exacerbated by the formation of new blisters with each attempt to walk. She has an upcoming appointment with her white mixing operator on 08/12/2024 for multiple diabetic foot [...] She has an upcoming appointment with an track repairer at [facility]. Not routinely checking BG. She [...] Pacemaker Schizoaffective disorder (HCC) Seizures (HCC) Stroke ([facility]) Past Surgical History: Procedure Laterality Date CHOLECYSTECTOMY FOOT SURGERY HYSTERECTOMY ORTHOPEDIC SURGERY left foot surgery PACEMAKER INSERTION AZ AMPUTATION TOE METATARSOPHALANGEAL JOINT Left 04/01/2024 Procedure: AMPUTATION LEFT HALLUX; Surgeon: Shameka Castillo DPM; Location: [facility] Main OR; [...] (two) times a day . Dexcom G6 Bindery Machine Tender Misc Use as directed for continuous glucose [...] Continue current medications as prescribed. Discharged from [facility] psychiatry due to no-shows. 2. Chronic Pain of [...] supposed to be establishing with an external sales analytics manager for evaluation. 18. Candidiasis Continue nystatin powder [...] syndrome Diabetic ulcer of left great toe ([facility]) Type 2 diabetes mellitus with diabetic polyneuropathy, with long-term current use of insulin ([facility]) - Hemoglobin A1c; Future - Hemoglobin A1c [...] Chronic obstructive pulmonary disease, unspecified COPD type ([facility]) - albuterol (PROVENTIL) 2.5 mg /3 mL [...] Free - TSH History of stroke Seizures ([facility]) Hypercholesterolemia - Lipid Panel; Future - Lipid [...] Stephany Pelayo PA-C documented in this encounter [facility] 07-21-2024 History of Present illness Narrative Shower chair order, ins card and OV note faxed to [employer]. documented in this encounter [facility] 07-15-2024 Note [facility] INTER[facility] [place] [address] Subjective Patient ID: Addie Jean Baptiste is [...] her foot next week with podiatry in [place] for diabetic foot ulcer. She has been [...] She has requested referrals to a neurologist, distiller, and track repairer at [facility]. She has a history of [...] ORTHOPEDIC SURGERY left foot surgery PACEMAKER INSERTION AZ AMPUTATION TOE METATARSOPHALANGEAL JOINT Left 04/01/2024 Procedure: AMPUTATION LEFT HALLUX; Surgeon: Shameka Castillo DPM; Location: [facility] Main OR; [...] (two) times a day . Dexcom G6 Bindery Machine Tender Misc Use as directed for continuous glucose [...] total) by mouth (more content not included)... [facility] 07-15-2024 History of Present illness Narrative [facility] INTER[facility] [place] [address] Subjective Patient ID: Addie Jean Baptiste is [...] her foot next week with podiatry in [place] for diabetic foot ulcer. She has been [...] She has requested referrals to a neurologist, distiller, and track repairer at [facility]. She has a history of [...] ORTHOPEDIC SURGERY left foot surgery PACEMAKER INSERTION AZ AMPUTATION TOE METATARSOPHALANGEAL JOINT Left 04/01/2024 Procedure: AMPUTATION LEFT HALLUX; Surgeon: Shameka Castillo DPM; Location: [facility] Main OR; [...] (two) times a day . Dexcom G6 Bindery Machine Tender Misc Use as directed for continuous glucose [...] 60 tablet 2 naloxone (NARCAN) 4 mg/actuation Glorieta Administer 1 spray into one nostril for [...] daily . I am managing and treating [facility]'s complex chronic condition(s) serving as the focal [...] Stephany Pelayo PA-C documented in this encounter [facility] 07-14-2024 Telephone encounter Note Percocet can remain at BID dosing for now. She can discuss this with Dr Velez in July [facility] 07-14-2024 Miscellaneous Notes Percocet can remain at [...] normally. Noted slightly slurred speech. Encounter in [place] dated today with PCP addressing seizure. Pt called to check on rx request. She states that her white mixing operator was supposed to call our office [...] She verbalized understanding. documented in this encounter [facility] 07-14-2024 Telephone encounter Note Pt lvm asking [...] normally. Noted slightly slurred speech. Encounter in [place] dated today with PCP addressing seizure. [facility] 07-13-2024 Telephone encounter Note Pt called to check on rx request. She states that her white mixing operator was supposed to call our office [...] more than a year. She verbalized understanding. [facility] 07-05-2024 History of Present illness Narrative Images from the original note were not included. Patient: Addie Montes Organ : 1975 PCP: Dominguez Angel MD SUBJECTIVE This is a 49 y.o. female [...] Past Medical History: Diagnosis Date Diabetes mellitus ([facility]) Hypertension ([facility]) Medications: Current Outpatient Medications: amoxicillin-clavulanate (Augmentin) 875-125 [...] , Rfl: ergocalciferol (Vitamin D2) 1.25 MG (23193 UT) capsule, Take 1 capsule by mouth [...] Resource Strain: Medium Risk (01/13/2024) Received from [facility] Overall Financial Resource Strain (CARDIA) Difficulty of Paying Living Expenses: Somewhat hard Food Insecurity: No Food Insecurity (04/27/2024) Received from [facility] Hunger Vital Sign Worried About Running Out of Food in the Last Year: Never true Ran Out of Food in the Last Year: Never true Transportation Needs: No Transportation Needs (04/27/2024) Received from [facility] PRAPARE - Transportation Lack of Transportation (Medical): No Lack of Transportation (Non-Medical): No Physical Activity: Not on file Stress: Not on file Social Connections: Not on file Intimate Partner Violence: Not At Risk (04/27/2024) Received from [facility] Humiliation, Afraid, Rape, and Kick questionnaire Fear of Current or Ex-Partner: No Emotionally Abused: No Physically Abused: No Sexually Abused: No Housing Stability: Low Risk (04/27/2024) Received from [facility] Housing Stability Vital Sign Unable to Pay [...] noted mild venous stasis disease noted Neuro: [place]iel 5.07 monofilament absent Vibratory sensation diminished Musculoskeletal: Muscle strength +5/5 all intrinsic and extrinsic muscles tested ASSESSMENT 1. Type II diabetes mellitus with neurological manifestations ([facility]/HCC) 2. Chronic foot ulcer with fat layer exposed, left ([facility]/HCC) 3. Cellulitis of left foot PLAN Patient [...] procedure. LUPE Capellan documented in this encounter [facility] 06-07-2024 History of Present illness Narrative Confirmation received. Pending scanning. Received fax from [employer] for incontinence supplies. Forms completed, signed and faxed. Waiting for confirmation. documented in this encounter [facility] 05-31-2024 History of Present illness Narrative error documented in this encounter [facility] 05-27-2024 Telephone encounter Note Pt is scheduled for appt with [employer] on 06/08/24. [facility] 05-27-2024 Miscellaneous Notes Pt is scheduled for appt with [employer] on 06/08/24. ----- Message from Arcelia Whyte sent at 05/27/2024 1:23 PM EST ----- Regarding: Calling back with updated information Contact: Patient Patient called in states was suppose to call her [employer] and make an appointment and then call back with that information. Patient advised she is now scheduled for 06/08/24 at 1:20 and is requesting that her QUEtiapine (SEROQUEL) 400 MG tablet () be filled. Patient states she was not aware that the office closed early today but needs the fill as soon as possible. Requesting a call back at [phone]. Thanks documented in this encounter [facility] 05-27-2024 Telephone encounter Note ----- Message from Arcelia Whyte sent at 05/27/2024 1:23 PM EST ----- Regarding: Calling back with updated information Contact: Patient Patient called in states was suppose to call her [facility] and make an appointment and then call back with that information. Patient advised she is now scheduled for 06/08/24 at 1:20 and is requesting that her QUEtiapine (SEROQUEL) 400 MG tablet () be filled. Patient states she was not aware that the office closed early today but needs the fill as soon as possible. Requesting a call back at [phone]. Thanks [facility] 05-13-2024 Instructions Mihai Elizalde CNP - 05/13/2024 [...] in 3 months documented in this encounter [facility] 05-13-2024 Note [facility] Interventional Pain Management Office Note Patient Name: Addie Organ Referring Physician: No ref. provider found Date of : 1975 PCP: Stephany Pelayo PA-C Date of Service: 05/13/24 History of Present Illness Last office visit: 02/02/24 Dr Velez SHON Narrative: Chief complaint: Lower back pain and [...] ORTHOPEDIC SURGERY left foot surgery PACEMAKER INSERTION AZ AMPUTATION TOE METATARSOPHA (more content not included)... [facility] 05-13-2024 History of Present illness Narrative [facility] Interventional Pain Management Office Note [...] ORTHOPEDIC SURGERY left foot surgery PACEMAKER INSERTION AZ AMPUTATION TOE METATARSOPHALANGEAL JOINT Left 04/01/2024 Procedure: AMPUTATION LEFT HALLUX; Surgeon: Shameka Castillo DPM; Location: [facility] Main OR; [...] total) by mouth daily . Dexcom G6 Bindery Machine Tender Misc Use as directed for continuous glucose [...] route daily . naloxone (NARCAN) 4 mg/actuation Glorieta Administer 1 spray into one nostril for [...] OPIOIDS Mihai Elizalde CNP Interventional Pain Management [facility] documented in this encounter [facility] 04-29-2024 Progress note Formatting of t his note might be different from the original. Spoke with Dr. Floyd Castillo, No dressing needed for patients foot. Leave open to air , Any drainage recommend neosporin and band-aid [facility] 04-29-2024 Miscellaneous Notes Spoke with Dr. Floyd [...] Outcome: Partially Met documented in this encounter [facility] 04-29-2024 Plan of care note Problem: Actual [...] Absence of physical injury Outcome: Partially Met [facility] 04-29-2024 Note [facility] 04-29-2024 History of Present illness Narrative [facility] ASSESSMENT: [...] Nightly Harshad Rizzo MD 40 mg at 04/28/24 210 busPIRone (BUSPAR) tablet 30 mg 30 mg [...] Units 60 Units Subcutaneous Nightly Lucina Preciado, SECTION CREWS ACTIVITIES CLERK 60 Units at 04/28/242107 insulin lispro (AdmeLOG,HumaLOG) [...] 75 mg 75 mg Oral BID Harshad Rizoz MD 75 mg at 04/29/24 08 QUEtiapine [...] daily . 90 tablet 1 Dexcom G6 Bindery Machine Tender Misc Use as directed for continuous glucose [...] 100 each 2 naloxone (NARCAN) 4 mg/actuation Glorieta Administer 1 spray into one nostril for [...] -- -- -- 18 -- -- 04/28/24 1941 -- -- -- -- 18 -- -- 04/28/24 1919 (!) 148/81 97.5 F (36.4 C) Oral [...] Reason for exam: Patient arrives with EMS ([facility]). She ambulated off of EMS cot [...] signs and symptoms: Patient arrives with EMS ([facility]). She ambulated off of EMS cot [...] EST I agree with assessment and plan. [facility] [place] Assessment and Plan Addie Jean Baptiste is a 48 y.o. female patient of Stephany Pelayo PA-C with history of T2DM, HTN, bipolar disorder, and chronic back pain presented to [facility] on 01/12/2024 with left toe wound. [...] normal coloration Psych: normal mood and affect [facility] [place] Assessment and Plan Addie Organ is a 48 y.o. female patient of Stephany Pelayo PA-C with history of T2DM, HTN, bipolar disorder, and chronic back pain presented to [facility] on 01/12/2024 with left toe wound. [...] mood and affect documented in this encounter [facility] 04-29-2024 Hospital course Narrative Images from the original note were not included. [facility] [place] [facility] Addie Jean Baptiste Admitted: 04/26/2024 Discharge Date: 04/29/24 PCP Handoff Recommended Outpatient Testing Follow up with podiatry Results Pending At Discharge NONE Clinical Summary Addie Jean Baptiste is a 48 y.o. female patient of Stephany Pelayo PA-C with history of T2DM, HTN, bipolar disorder, and chronic back pain presented to [facility] on 01/12/2024 with left toe wound. [...] daily . Quantity: 90 tablet Dexcom G6 Bindery Machine Tender Mis Generic drug: blood-glucose meter,continuous Use as directed for continuous glucose monitoring . Quantity: 1 each Dexcom G6 Sensor Smiran Generic drug: blood-glucose sensor Use as directed [...] . Quantity: 100 each naloxone 4 mg/actuation Glorieta Commonly known as: NARCAN Administer 1 spray [...] 04/29/24, 8:26 AM documented in this encounter [facility] 04-28-2024 Telephone encounter Note Pt in hospital, infection in toe amputation site. Due for refill on 04/22/24. [facility] 04-28-2024 Miscellaneous Notes Pt in hospital, infection in toe amputation site. Due for refill on 04/22/24. documented in this encounter [facility] 04-28-2024 Stephan [facility] 04-28-2024 Plan of care note Problem: Actual [...] Absence of pressure injury Outcome: Partially Met [facility] 04-28-2024 Note [facility] 04-27-2024 Consult note Associated Order (s): IP CONSULT TO PODIATRY Images from the original note were not included. [facility] H&P/CONSULT ASSESSMENT: Diabetes [...] removing the stitches. Betadine dry sterile dressing regional climate change analyst the amputation site. -- OR Plans: None - ABX: cefazolin based on recent surgical cultures, per primary - DSG: Betadine dry sterile dressing regional climate change analyst the amputation site. - WBS: [...] listed below who WAS ADMITTED TO [facility] ON 04/26/2024 [...] ORTHOPEDIC SURGERY left foot surgery PACEMAKER INSERTION AZ AMPUTATION TOE METATARSOPHALANGEAL JOINT Left 04/01/2024 Procedure: AMPUTATION LEFT HALLUX; Surgeon: Shameka Castillo DPM; Location: [facility] [facility] Main OR; [...] 45 Units 45 Units Subcutaneous Nightly Lucina Preciado CNP insulin lispro (AdmeLOG,HumaLOG) injection 0-15 Units 0-15 [...] daily . 90 tablet 1 Dexcom G6 Bindery Machine Tender Misc Use as directed for continuous glucose [...] 100 each 2 naloxone (NARCAN) 4 mg/actuation [place] Administer 1 spray into one nostril for [...] (!) 104 -- 98 % -- -- 04/26/24 2145 (!) 164/112 -- -- -- -- 98 % -- -- 04/26/244 -- -- -- (!) 104 18 98 [...] Reason for exam: Patient arrives with EMS ([facility]). She ambulated off of EMS cot [...] signs and symptoms: Patient arrives with EMS ([facility]). She ambulated off of EMS cot [...] Castillo DPM at 04/28/2024 8:17 AM EST [facility] 04-27-2024 Consult note Associated Order (s): IP CONSULT TO PODIATRY Images from the original note were not included. [facility] H&P/CONSULT ASSESSMENT: Diabetes [...] removing the stitches. Betadine dry sterile dressing regional climate change analyst the amputation site. -- OR Plans: None - ABX: cefazolin based on recent surgical cultures, per primary - DSG: Betadine dry sterile dressing regional climate change analyst the amputation site. - WBS: [...] listed below who WAS ADMITTED TO [facility] ON 04/26/2024 [...] ORTHOPEDIC SURGERY left foot surgery PACEMAKER INSERTION AZ AMPUTATION TOE METATARSOPHALANGEAL JOINT Left 04/01/2024 Procedure: AMPUTATION LEFT HALLUX; Surgeon: Shameka Castillo DPM; Location: [facility] [facility] Main OR; [...] tablet 50 mg 50 mg Oral Nightly Harshad Arce MD 50 mg at 04/27/24 0241 Medications [...] daily . 90 tablet 1 Dexcom G6 Bindery Machine Tender Misc Use as directed for continuous glucose [...] 100 each 2 naloxone (NARCAN) 4 mg/actuation [place] Administer 1 spray into one nostril for [...] (!) 104 -- 98 % -- -- 04/26/24 2145 (!) 164/112 -- -- -- -- 98 [...] Reason for exam: Patient arrives with EMS ([facility]). She ambulated off of EMS cot [...] signs and symptoms: Patient arrives with EMS ([facility]). She ambulated off of EMS cot [...] 8:17 AM EST documented in this encounter [facility] 04-27-2024 Note [facility] 04-27-2024 Plan of care note Problem: Actual [...] Absence of pressure injury Outcome: Partially Met [facility] 04-26-2024 History and physical [place] [facility] [place] [facility] Patient Name: Addie Jean Baptiste : 1975 MR #: [id number] Admit Date: 04/26/2024 Physicians: Stephany Pelayo PA-C (Family); No ref. provider found (Referring) Addie Jean Baptiste is a 48 y.o. female patient of Stephany Pelayo PA-C with history of T2DM, HTN, bipolar disorder, and chronic back pain presented to [facility] on 01/12/2024 with left toe wound. [...] ORTHOPEDIC SURGERY left foot surgery PACEMAKER INSERTION AZ AMPUTATION TOE METATARSOPHALANGEAL JOINT Left 04/01/2024 Procedure: AMPUTATION LEFT HALLUX; Surgeon: Shameka Castillo DPM; Location: [facility] [place]; [...] 04/26/24 11:47 PM Medications 04/26/24 11:47 PM [facility] 04-26-2024 History and physical note [facility] [place] [facility] Patient Name: Addie Jean Baptiste : 1975 MR #: [id number] Admit Date: 04/26/2024 Physicians: Stephany Pelayo PA-C (Family); No ref. provider found (Referring) Addie Jean Baptiste is a 48 y.o. female patient of Stephany Pelayo PA-C with history of T2DM, HTN, bipolar disorder, and chronic back pain presented to [facility] on 01/12/2024 with left toe wound. [...] ORTHOPEDIC SURGERY left foot surgery PACEMAKER INSERTION AZ AMPUTATION TOE METATARSOPHALANGEAL JOINT Left 04/01/2024 Procedure: AMPUTATION LEFT HALLUX; Surgeon: Shameka Castillo DPM; Location: [facility] [place]; [...] 04/26/24 11:47 PM documented in this encounter [facility] 04-26-2024 Physician Emergency department Note [facility] EMERGENCY DEPARTMENT ED Provider Note: Name: Addie [...] resistant Staphylococcus aureus) Pacemaker Seizures (HCC) Stroke ([facility]) Patient Active Problem List Diagnosis Hypertension S/P placement of cardiac pacemaker Type 2 diabetes mellitus with diabetic polyneuropathy, with long-term current use of insulin (HCC) Bipolar 1 disorder (HCC) Seizures (HCC) Chronic chest pain GERD (gastroesophageal reflux disease) Hypothyroidism Diabetic peripheral neuropathy ([facility]) Insomnia Generalized weakness Muscle spasms of both lower extremities Bowel incontinence Vitamin B12 deficiency Vitamin D deficiency Cigarette nicotine dependence COPD (chronic obstructive pulmonary disease) ([facility]) Left-sided weakness History of stroke Visual loss, left eye Family history of pulmonary fibrosis Family history of dementia Urinary incontinence Chronic headaches Hypercholesterolemia CKD (chronic kidney disease) Retinal hemorrhage Diabetic ulcer of left great toe (HCC) Hypertensive urgency Chronic pain syndrome Chronic pain of both knees Abdominal wound dehiscence Candidiasis Abnormal pigmentation of skin Toe osteomyelitis ([facility]) Postoperative infection PSurg: Past Surgical History: Procedure Laterality Date CHOLECYSTECTOMY FOOT SURGERY HYSTERECTOMY ORTHOPEDIC SURGERY left foot surgery PACEMAKER INSERTION AZ AMPUTATION TOE METATARSOPHALANGEAL JOINT Left 04/01/2024 Procedure: AMPUTATION LEFT HALLUX; Surgeon: Shameka Castillo DPM; Location: [facility] [place]; [...] total) by mouth daily . Dexcom G6 Bindery Machine Tender Misc Use as directed for continuous glucose [...] route daily . naloxone (NARCAN) 4 mg/actuation [place] Administer 1 spray into one nostril for [...] All other components within normal limits Narrative: [facility] has implemented the eGFR calculation [...] Procedure Abnormality Status --------- ------ CBC Auto Differential[[id number]] Abnormal Final result Please view results for [...] for signs of osteomyelitis. She reports Shameka Jonathan performed a partial amputation in early March. [...] call required?: No Jacoby Dooley MD 04/26/24 4450 [facility] 04-26-2024 Emergency department Note [facility] EMERGENCY DEPARTMENT ED Provider Note: Name: Addie [...] Staphylococcus aureus) Pacemaker Seizures (HCC) Stroke (HCC) Patient Active Problem List Diagnosis Hypertension S/P placement of cardiac pacemaker Type 2 diabetes mellitus with diabetic polyneuropathy, with long-term current use of insulin (HCC) Bipolar 1 disorder (HCC) Seizures (HCC) Chronic chest pain GERD (gastroesophageal reflux disease) Hypothyroidism Diabetic peripheral neuropathy ([facility]) Insomnia Generalized weakness Muscle spasms of both lower extremities Bowel incontinence Vitamin B12 deficiency Vitamin D deficiency Cigarette nicotine dependence COPD (chronic obstructive pulmonary disease) ([facility]) Left-sided weakness History of stroke Visual loss, left eye Family history of pulmonary fibrosis Family history of dementia Urinary incontinence Chronic headaches Hypercholesterolemia CKD (chronic kidney disease) Retinal hemorrhage Diabetic ulcer of left great toe (HCC) Hypertensive urgency Chronic pain syndrome Chronic pain of both knees Abdominal wound dehiscence Candidiasis Abnormal pigmentation of skin Toe osteomyelitis ([facility]) Postoperative infection PSurg: Past Surgical History: Procedure Laterality Date CHOLECYSTECTOMY FOOT SURGERY HYSTERECTOMY ORTHOPEDIC SURGERY left foot surgery PACEMAKER INSERTION AZ AMPUTATION TOE METATARSOPHALANGEAL JOINT Left 04/01/2024 Procedure: AMPUTATION LEFT HALLUX; Surgeon: Shameka Castillo DPM; Location: [facility] [place]; [...] total) by mouth daily . Dexcom G6 Bindery Machine Tender Misc Use as directed for continuous glucose [...] route daily . naloxone (NARCAN) 4 mg/actuation [place] Administer 1 spray into one nostril for [...] All other components within normal limits Narrative: [facility] has implemented the eGFR calculation [...] Procedure Abnormality Status --------- ------ CBC Auto Differential[[id number]] Abnormal Final result Please view results for [...] to her concerns, and was condescending. Addie Organ with history as above presented with postoperative [...] call required?: No Jacoby Dooley MD 04/26/24 7100 Pt reports not taking her BP medication today Patient reports 10/10 pain and states she took her last percocet yesterday. Patient also reports that she does take medication for high blood pressure. Patient arrives with EMS ([facility]). She ambulated off of EMS cot [...] arrival: Comments: 29 documented in this encounter [facility] 04-26-2024 Emergency department Note Pt reports not taking her BP medication today [facility] 04-26-2024 Emergency department Note Patient reports 10/10 pain and states she took her last percocet yesterday. Patient also reports that she does take medication for high blood pressure. [facility] 04-26-2024 Emergency department Triage note Patient arrives with EMS ([facility]). She ambulated off of EMS cot [...] She reports redness, pain and clear drainage. [facility] 04-26-2024 Emergency department Note Bed: 18 Expected date: Expected time: Means of arrival: Comments: 29 [facility] 04-14-2024 Note Addended by: Jyoti ELIZALDE on: 04/14/2024 11:03 AM Modules accepted: Orders [facility] 04-14-2024 Miscellaneous Notes Addended by: MIHAI ELIZALDE [...] 1 tablet left. documented in this encounter [facility] 04-12-2024 Telephone encounter Note Already sent remaining 15 tabs [facility] 04-12-2024 Miscellaneous Notes Already sent remaining 15 tabs Pt had to fill 15 tablets and pay oop due to insurance would not cover. Jean is trying to resubmit to insurance with updated info. But will need new rx for remaining 45 tablets. She only received 1 1/2 day supply and only has 1 tablet left. documented in this encounter [facility] 04-12-2024 Telephone encounter Note Pt had to fill 15 tablets and pay oop due to insurance would not cover. Jean is trying to resubmit to insurance with updated info. But will need new rx for remaining 45 tablets. She only received 1 1/2 day supply and only has 1 tablet left. [facility] 04-06-2024 History of Present illness Narrative PA request from [employer] for Omnipod faxed [employer] prescription request form complete for Omnipod / faxed documented in this encounter [facility] 04-04-2024 Hospital course Narrative Images from the original note were not included. [facility] [place] Addie Jean Baptiste Admitted: 03/24/2024 [...] disorder, and chronic back pain presented to [facility] on 03/25/2024 with left toe wound. [...] dos eot 35U qHs Diabetic diet Consulted unit educator: Resume insulin pump at discharge, verified [...] daily . Quantity: 90 tablet Dexcom G6 Bindery Machine Tender Mis Generic drug: blood-glucose meter,continuous Use as [...] 04/04/24, 12:23 PM documented in this encounter [facility] 04-04-2024 Note [facility] 04-04-2024 History of Present illness Narrative [facility]GICAL PROGRESS NOTE ASSESSMENT [...] Juwan Smith MD 30 mg at 04/04/24 0857 cefadroxil (DURICEF) capsule 500 mg 500 mg Oral Q12H [facility] Enrique Anthony, [employer] ACTIVITIES CLERK 500 mg at 04/03/242124 citalopram (CELEXA) tablet 40 mg 40 mg Oral Daily Juwan Smith MD 40 mg at 04/04/24 0857 enoxaparin (LOVENOX) syringe 40 mg 40 mg Subcutaneous BID Lowell Roberts, [facility],PharmD 40 mg at 04/04/24 0856 hydrALAZINE (APRESOLINE) [...] mg 0.1 mg Intravenous PRN Floyd Rubin [facility],PharmD 0.1 mg at 03/28/24 0520 And naloxone (NARCAN) injection 0.4 mg 0.4 mg Intravenous PRN Floyd Rubin [facility],PharmD 0.4 mg at 03/26/24 2300 nicotine (NICODERM CQ) 14 mg/24 hr 1 patch 1 patch Transdermal Daily Maya Franklin PA-C 1 patch at 04/02/24 0904 nortriptyline (PAMELOR) capsule 25 mg 25 mg Oral Nightly Juwan Smith MD 25 mg at 04/03/24 2125 ondansetron (ZOFRAN) injection 4 mg 4 mg Intravenous Q6H PRN Jennifer Lopez CNP 4 mg at 03/30/24 1508 oxyCODONE-acetaminophen (PERCOCET) 5-325 mg per tablet 1 tablet 1 tablet Oral Q4H PRN Juwan Smith MD 1 tablet at 04/04/24 0857 pantoprazole (PROTONIX) EC tablet 40 mg 40 mg Oral QAM Juwan Smith MD 40 mg at 04/04/24 0857 pregabalin (LYRICA) capsule 75 mg 75 mg Oral BID Juwan Smith MD 75 mg at 04/04/24 0857 QUEtiapine (SEROQUEL) tablet 800 mg 800 mg Oral Nightly Juwan Smith MD 800 mg at 04/03/242124 sodium chloride (PF) (NS) flush 5 mL [...] PRN Juwan Smith MD 50 mg at 04/03/242136 Medications Prior to Admission Medication Sig Dispense [...] Verio . 100 strip 5 Dexcom G6 Bindery Machine Tender [place] Use as directed for continuous glucose monitoring [...] Abnormal ECG Confirmed by Inessa Rao MD ([id number]) on 03/25/2024 8:01:09 AM XR Toe(s) Left [...] with the assessment and plan as documented. [facility] [place] Assessment and Plan Addie Jean Baptiste is a 48 y.o. female patient of Stephany Pelayo PA-C with history of T2DM, HTN, bipolar disorder, and chronic back pain presented to [facility] on 03/25/2024 with left toe wound. [...] dos eot 35U qHs Diabetic diet Consulted unit educator: Resume insulin pump at discharge, verified [...] 04/04 Patient requires continued hospitalization due to: Manager Of Clinical request Discharge Location:home Quality Measures DVT Prophylaxis: [...] normal coloration Psych: normal mood and affect [facility] [place] Assessment and Plan Addie Jean Baptiste is a 48 y.o. female patient of Stephany Pelayo PA-C with history of T2DM, HTN, bipolar disorder, and chronic back pain presented to [facility] on 03/25/2024 with left toe wound. [...] night Blood sugar improving Diabetic diet Consult unit educator: Hypertension Hyperlipidemia Continue to hold SHAJI [...] 04/04 Patient requires continued hospitalization due to: Manager Of Clinical request Discharge Location:home Quality Measures DVT Prophylaxis: [...] and affect [facility] INPATIENT PROGRESS NOTE ASSESSMENT AND PLAN: Diabetes [...] Jean Baptiste Admit Date: 10300628 MR #: [id number] : 1975 Perpetual Assessment: Addie Jean Baptiste [...] 9.1 PHOSPHORUS mg/dL 2.8 2.7 3.0 Urinalysis [facility] [place] Assessment and Plan Addie Organ is a 48 y.o. female patient of Stephany Pelayo PA-C with history of T2DM, HTN, bipolar disorder, and chronic back pain presented to [facility] on 03/25/2024 with left toe wound. [...] night Blood sugar improving Diabetic diet Consult unit educator: Hypertension Hyperlipidemia Continue to hold SHAJI [...] Patient states she is requested amputation per white mixing operator Objective BP 138/82 (BP Location: Left [...] pain Nutrition Related Allergies/Intolerances: latex Cultural or Buddhism Dietary Needs :No Cultural or Buddhism Dietary needs noted Patient/family comments:Deferred: Pt sleeping [...] Use) [place] [address] LD Office [phone] Images from the original note were not included. [facility] SURGICAL PROGRESS NOTE ASSESSMENT [...] answered and ample time was provided. Floyd Castillo, [facility], Foot and Ankle Surgery 03/31/2024 PAST MEDICAL [...] capsule 500 mg 500 mg Oral Q12H [facility] Enrique Anthony, SE[employer] ACTIVITIES CLERK 500 mg at 03/31/24902 citalopram (CELEXA) tablet 40 mg 40 mg Oral Daily Juwan Smith MD 40 mg at 03/31/24902 enoxaparin (LOVENOX) syringe 40 mg 40 mg Subcutaneous BID Lowell Roberts, [facility],PharmD 40 mg at 03/31/24902 insulin glargine (LANTUS) injection 30 Units 30 Units Subcutaneous Nightly Leticia Rajput MD 30 Units at 03/30/242127 insulin lispro (AdmeLOG,HumaLOG) injection 0-15 Units 0-15 Units Subcutaneous at bedtime Merrick Almanza MD insulin lispro (AdmeLOG,HumaLOG) injection 0-30 Units 0-30 Units Subcutaneous TID AC Merrick Almanza MD 9 Units at 03/30/24 113 lamoTRIgine (LAMICTAL) tablet 25 mg 25 mg Oral BID Juwan Smith MD 25 mg at 03/31/24902 levothyroxine (SYNTHROID, LEVOTHROID) tablet 75 mcg 75 mcg Oral Daily Juwan Smith MD 75 mcg at 03/31/24 0618 naloxone (NARCAN) injection 0.1 mg 0.1 mg Intravenous PRN Floyd Rubin [facility],PharmD 0.1 mg at 03/28/24 0520 And naloxone (NARCAN) injection 0.4 mg 0.4 mg Intravenous PRN Floyd Rubin [facility],PharmD 0.4 mg at 03/26/24 2300 nicotine (NICODERM [...] Verio . 100 strip 5 Dexcom G6 Bindery Machine Tender Misc Use as directed for continuous glucose [...] 2227 -- -- -- -- 14 -- 03/30/247 -- -- -- -- 16 -- 03/30/24 [...] Abnormal ECG Confirmed by Inessa Rao MD ([id number]) on 03/25/2024 8:01:09 AM XR Toe(s) Left [...] coordination of care and direct patient management. [facility] [place] Assessment and Plan Addie Jean Baptiste is a 48 y.o. female patient of Stephany Pelayo PA-C with history of T2DM, HTN, bipolar disorder, and chronic back pain presented to [facility] on 03/25/2024 with left toe wound. [...] night Blood sugar improving Diabetic diet Consult unit educator: Hypertension Hyperlipidemia Continue to hold metoprolol [...] Jean Baptiste Admit Date: 10300628 MR #: [id number] : 1975 Perpetual Assessment: Addie Jean Baptiste [...] Units 03/31/24 0616 03/30/24 0549 03/29/24 0431 WBC K/mcL 6.83 6.90 7.18 HGB g/dL [...] UR /hpf 5 BACTERIA, UR /hpf Rare* [facility] [place] Assessment and Plan Addie Organ is a 48 y.o. female patient of Stephany Pelayo PA-C with history of T2DM, HTN, bipolar disorder, and chronic back pain presented to [facility] on 03/25/2024 with left toe wound. [...] 30 units at night Diabetic diet Consult unit educator: Hypertension Hyperlipidemia Continue to hold metoprolol [...] Jean Baptiste Admit Date: 10300628 MR #: [id number] : 1975 Perpetual Assessment: Addie Jean Baptiste [...] 7 days Lab Units 03/30/24 0549 03/29/24 04303/28/24 0304 WBC K/mcL 6.90 7.18 7.07 HGB [...] not included. [facility]OT AND [facility]KLE SURGICAL PROGRESS NOTE ASSESSMENT [...] BID Juwan Smith MD 30 mg at 03/30/24 0714 citalopram (CELEXA) tablet 40 mg 40 mg Oral Daily Juwan Smith MD 40 mg at 03/30/24 0714 enoxaparin (LOVENOX) syringe 30 mg 30 mg Subcutaneous Daily Radha Castillo RP,PharmD 30 mg at 03/29/242115 insulin glargine (LANTUS) [...] mg 0.1 mg Intravenous PRN Floyd Rubin [facility],PharmD 0.1 mg at 03/28/24 0520 And naloxone (NARCAN) injection 0.4 mg 0.4 mg Intravenous PRN Floyd Rubin [facility],PharmD 0.4 mg at 03/26/24 2300 nortriptyline (PAMELOR) [...] Nightly Juwan Smith MD 800 mg at 03/29/24 2114 sodium chloride (PF) (NS) flush 5 mL [...] Juwan Smith MD 4 mg at 03/29/24 211 traZODone (DESYREL) tablet 50 mg 50 mg [...] Verio . 100 strip 5 Dexcom G6 Bindery Machine Tender [place] Use as directed for continuous glucose monitoring [...] C) Oral 67 16 93 % -- 03/29/24 2125 -- -- -- -- (!) 22 -- [...] Abnormal ECG Confirmed by Inessa Rao MD ([id number]) on 03/25/2024 8:01:09 AM XR Toe(s) Left [...] Addie Organ Admit Date: 10300628 MR #: [id number] : 1975 Perpetual Assessment: Addie Organ is a 48 y.o. female on hospital [...] Results from last 7 days Lab Units 03/29/24 0431 03/28/24 0304 03/27/24 0434 WBC K/mcL 7.18 7.07 7.80 HGB g/dL 8.8* 9.2* 9.6* HCT % 28.0* 29.5* 30.8* PLT K/mcL 264 282 308 Results from last 7 days Lab Units 03/29/24 0431 03/28/24 0304 03/27/24 043 SODIUM mmol/L 137 137 140 POTASSIUM [...] UR /hpf 5 BACTERIA, UR /hpf Rare* [facility] [place] Assessment and Plan Addie Jean Baptiste is a 48 y.o. female patient of Stephany Pelayo PA-C with history of T2DM, HTN, bipolar disorder, and chronic back pain presented to [facility] on 03/25/2024 with left toe wound. [...] 20u at night today Diabetic diet Consult unit educator: Hypertension Hyperlipidemia Continue to hold metoprolol [...] normal coloration Psych: normal mood and affect [facility] [place] Assessment and Plan Addie Jean Baptiste is a 48 y.o. female patient of Stephany Pelayo PA-C with history of T2DM, HTN, bipolar disorder, and chronic back pain presented to [facility] on 03/25/2024 with left toe wound. [...] to continue insulin pump Diabetic diet Consult unit educator: Admits that she has not been [...] Addie Organ Admit Date: [id number] MR #: [id number] : 1975 Perpetual Assessment: Addie Jean Baptiste [...] from last 7 days Lab Units 03/28/24 03003/27/2443303/25/24 0550 WBC K/mcL 7.07 7.80 8.66 HGB g/dL 9.2* 9.6* 10.2* HCT % 29.5* 30.8* 29.7* PLT K/mcL 282 308 297 Results from last 7 days Lab Units 03/28/24 0304 03/27/2443303/26/24 2306 SODIUM mmol/L 137 140 137 POTASSIUM [...] /hpf Rare* [facility] FOOT AND ANKLE SURGICAL PROGRESS NOTE ASSESSMENT [...] 40 mg 40 mg Oral Nightly Juwan mSith MD 40 mg at 03/27/242019 busPIRone (BUSPAR) tablet 30 mg 30 mg Oral BID Juwan Smith MD 30 mg at 03/28/24 0857 citalopram (CELEXA) tablet 40 mg 40 mg Oral Daily Juwan Smith MD 40 mg at 03/28/24 0857 enoxaparin (LOVENOX) syringe 30 mg 30 mg Subcutaneous Daily Radha Castillo, [facility],PharmD insulin lispro (AdmeLOG,HumaLOG) injection 0-15 Units 0-15 Units Subcutaneous at bedtime Merrick Almanza MD insulin lispro (AdmeLOG,HumaLOG) injection 0-30 Units 0-30 Units Subcutaneous TID AC Merrick Almanza MD 15 Units at 03/28/24 [...] AC Juwan Smith MD 40 mg at 03/28/24 0857 piperacillin-tazobactam (ZOSYN) IVPB 3.375 g (premix) 3.375 g Intravenous Q8H Juwan Smith MD 12.5 mL/hr at 03/28/24 0904 3.375 g at 03/28/24 0904 pregabalin (LYRICA) capsule 75 mg 75 mg Oral BID Juwan Smith MD 75 mg at 03/28/24 0857 QUEtiapine (SEROQUEL) tablet 800 mg 800 mg Oral Nightly Juwan Smith MD 800 mg at 03/27/24 2021 scopolamine (TRANSDERM-SCOP) 1 mg over 3 days [...] Nightly Juwan Smith MD 4 mg at 03/27/24 2020 traZODone (DESYREL) tablet 50 mg 50 mg [...] Verio . 100 strip 5 Dexcom G6 Bindery Machine Tender Misc Use as directed for continuous glucose [...] Abnormal ECG Confirmed by Inessa Rao MD ([id number]) on 03/25/2024 8:01:09 AM XR Toe(s) Left [...] with the assessment and plan as documented. [facility] [place] Assessment and Plan Addie Jean Baptiste is a 48 y.o. female patient of Stephany Pelayo PA-C with history of T2DM, HTN, bipolar disorder, and chronic back pain presented to [facility] on 03/25/2024 with left toe wound. [...] to continue insulin pump Diabetic diet Consult unit educator: Admits that she has not been [...] Fawn Hinton MDiv, [facility] Staff Labor Standards Director Velia Herrera Patients Response to Pastoral Care: Appeared to be well-engaged Planning for Future Visits: PRN 03/27/24 1040 Visit Background Visit With Patient Visit By Staff Labor Standards Director Visit Progression Introduction Visit Requested By Labor Standards Director Initiated Visit Source Labor Standards Director Initiated Visit Type Inpatient;Rounding Visit Circumstances and Events Routine Visit Visit Length (minutes) 30 Patient's Response to Pastoral Care Appeared to be well-engaged Visit Planning PRN Spiritual Assessment Assessed during this visit Buddhism Assessment Not assessed during this visit Family assessment provided? Not assessed during this visit Patient Spiritual Needs Assessment Sources of Connection Daughter;Granddaughter;Grandson;So n Belief Practices Not Discussed Coping Mechanisms Family Support Spiritual Diagnosis Disconnected from Sources of Support Facilitated Interventions Active Listening;Explained Role of the Labor Standards Director;Goal Setting Spiritual/Emotional Outcomes Appears less anxious;Appears more [...] Denies needs. [facility] INPATIENT PROGRESS NOTE ASSESSMENT AND PLAN: Diabetes [...] days Lab Units 03/26/24 0352 03/25/24 0551 03/24/243 SODIUM mmol/L -- 138 134* POTASSIUM mmol/L -- 4.3 4.6 CHLORIDE mmol/L -- 105 97* BUN mg/dL -- 23 24 CREATININE mg/dL 1.67* 1.35* 1.44* GLUCOSE mg/dL -- 345* 646* CALCIUM mg/dL -- 8.3* 9.3 Results from last 7 days Lab Units 03/25/24 0550 03/24/24 225 WBC K/mcL 8.66 9.56 HGB g/dL 10.2* 12.5 HEMOGLOBIN BG g/dL -- 13.0 HEMATOCRIT, CALCULATED % -- 40.0 HCT % 29.7* 37.6 PLT K/mcL 297 371 MONOS% % -- 4.5 EOSIN% % -- 3.5 Results from last 7 days Lab Units 03/24/242252 ALK PHOS U/L 139 BILIRUBIN TOTAL mg/dL 0.5 BILIRUBIN DIRECT mg/dL <0.2 TOTAL PROTEIN g/dL 8.1* ALT U/L 16 AST U/L 16 [facility] [place] Assessment and Plan Addie Jean Baptiste is a 48 y.o. female patient of Stephany Pelayo PA-C with history of T2DM, HTN, bipolar disorder, and chronic back pain presented to [facility] on 03/25/2024 with left toe wound. [...] to continue insulin pump Diabetic diet Consult unit educator: Admits that she has not been [...] resistant Staphylococcus aureus) Pacemaker Seizures (HCC) Stroke ([facility]) Objective: Estimated Creatinine Clearance: 38.6 mL/min (A) [...] (H) 12/09/2014 5.50 (H) Pharmacist: Floyd Rubin [facility],PharmD Contact Number: [phone] Spoke with MD regarding right chest port. [...] distress. Care continues. documented in this encounter [facility] 04-04-2024 Miscellaneous Notes Problem: Actual or potential [...] (48 y.o.) Date of Service: 04/01/2024 CSN: [id number] Procedure(s): AMPUTATION LEFT HALLUX IPJ Pre-Operative Diagnoses: * osteomyelitis Post-Operative Diagnoses: * Same as Pre-Op Diagnosis Surgeons and Role: * Shameka Castillo DPM - Primary Anesthesiologist: Mk [place] MD ANIMAL TRAINER: Monique Palomares CRNA Extension Professor: Agueda Hunt RN Scrub Person: Monique Cheatham [...] Left BONE AEROBIC & ANAEROBIC CULTURE Shameka Castillo, LUPE 04/01/2024 1708 A : left hallux Tissue Amputation, Toe, Left TISSUE EXAM Shameka Castillo, DPJoel 04/01/2024 170 Implant(s): * No implants in log * [...] Initial exam 03/29/24 0929 Drainage Amount Scant 03/31/24 1934 Drainage Description Red 03/31/24 1934 Odor None 03/31/24 193 Wound Bed Characteristics Red;Scab 03/31/24 193 Gema-wound Assessment Temperature WNL 03/31/24 193 Cleansed Betadine 03/31/24 193 Primary Dressing Dry gauze 03/31/241933 Secondary Dressing Dry gauze 03/31/24 193 Compression Dressing Other (Comment) 03/31/24 193 Wound 01/13/24 Abdomen LLQ (Active) Reassessment Unchd [...] Red;Intact;Dry 03/25/24 1030 Treatments Other (Comment) 03/31/24 0637 Cleansed Chlorhexadine 03/31/24 0637 Primary Dressing Adhesive bandage 03/31/24 0758 Secondary Dressing Adhesive bandage 03/31/24 0758 Compression Dressing Not Applicable 03/30/24 1926 Wound [...] vital signs stable and vascular status intact Shameak Castillo DPM 04/01/2024 5:23 PM Problem: Actual [...] needs to be reassessed. Enrique Anthony CNP [facility] - Infectious Diseases Office: [phone] Attempted to call report and phone was [...] Called and left a message for daughter (Laura to inform her Addie was transferred to ICU. Informed her she could call her mom to get more information . Problem: Pain Goal: Able to achieve maximum level of physical functioning Outcome: Partially Met Problem: Pain Goal: Reduced pain sensation Outcome: Partially Met [place] [facility] [place] that patient's BP was 71/46 with slurred speech and Blood sugar of 348. Dr Brar came to the floor and seen patient. See new orders. [facility] Significant Event Note Reason for Call: Hypotension [...] - admitting glucose 646 HgbA1c 9.9 Consult unit educator Lactic acidosis LA 3.0 - 2.1 [...] Outcome: Partially Met documented in this encounter [facility] 04-03-2024 Note [facility] 04-02-2024 [facility] 04-01-2024 Note [facility] 04-01-2024 Note [facility] 04-01-2024 Note [facility] 03-31-2024 Note [facility] 03-31-2024 Consult note Associated Order (s): [...] transport arranged?: No Current Home Equipment: Cane, 3/ Commode, Hospital bed Physical Therapy PHYSICAL THERAPY [...] medical history of Anxiety, Bipolar 1 disorder ([facility]), Chronic back pain, Chronic kidney disease, stage 3 unspecified ([facility]), Coronary artery disease, Depression, Diabetes mellitus ([facility]), Hypertension, MRSA (methicillin resistant Staphylococcus aureus), Pacemaker, Seizures ([facility]), and Stroke ([facility]). Left DFI with ?OM: podiatry following with [...] either seen or discussed with Dr. Bean Anthony, BEATRIZ [facility] - Infectious Diseases Office: [phone] Inpatient consult to Infectious Diseases Consult performed by: Enrique Anthony CNP Consult ordered by: Leticia Rajput MD Reason for consult: osteo big toe Chief Complaint: Toe pain HPI: Addie Jean Baptiste is a 48 y.o. female has a past medical history of Anxiety, Bipolar 1 disorder (HCC), Chronic back pain, Chronic kidney disease, stage 3 unspecified (HCC), Coronary artery disease, Depression, Diabetes mellitus (HCC), Hypertension, MRSA (methicillin resistant Staphylococcus aureus), Pacemaker, Seizures (HCC), and Stroke (HCC). . She presented on 03/24/2024 with toe [...] Verio . 100 strip 5 Dexcom G6 Bindery Machine Tender [place] Use as directed for continuous glucose monitoring [...] wound healing in the future Jem Del Angel, DO 2:23 PM 03/30/2024 OPG-ID Associated Order(s): [...] Patient Name: Addie Jean Baptiste MR #: [id number] : 1975 Requesting provider: hospitalist Reason for [...] sugar. One Touch Verio . Dexcom G6 Bindery Machine Tender Misc Use as directed for continuous glucose [...] BLOOD, UR Moderate* NITRITE, UR Negative LEUK LROI, UR Negative MUCUS, UR /lpf Rare WBC, UR /hpf 5 BACTERIA, UR /hpf Rare* Risk/Complexity: [x] I have reviewed Progress Notes in the [facility] EHR and CareEverywhere. [x] I have interpreted/reviewed lab tests and radiography data in the [facility] EHR. [x] I have discussed the case with the primary service. [x] I have ordered appropriate tests/labs Comments: Thank you for allowing us to participate in the care of this patient. We will continue to follow. Please call if questions or concerns arise. Associated Order(s): IP CONSULT TO WEATHER OBSERVER Critical Care Consult Note Reason for Consultation: [...] 2 (two) times a day . Yes Zoë Garcia MD chlorthalidone (HYGROTON) 25 MG tablet [...] (two) times a day . 02/08/24 Yes Zoë Garcia MD levETIRAcetam (KEPPRA) 1000 MG tablet [...] 2 (two) times a day . Yes Provider, MD Manuel oxyCODONE-acetaminophen (PERCOCET) 5-325 mg per tablet Take [...] (one) tablet by mouth daily . Yes Provider, MD Manuel QUEtiapine (SEROQUEL) 400 MG tablet Take 2 (two) tablets (800 mg total) by mouth nightly . 02/08/24 05/08/24 Yes Zoë Garcia MD timolol (TIMOPTIC) 0.5 % ophthalmic solution Administer 1 (one) drop into the left eye daily . 12/15/23 Yes Manuel Cardona MD tiZANidine (Zanaflex) 4 MG tablet Take 2 tabs p.o. nightly . 03/09/24 Yes Mihai Elizalde CNP traZODone (DESYREL) 50 MG tablet Take 1 (one) tablet (50 mg total) by mouth nightly as needed . 02/08/24 Yes Zoë Garcia MD alcohol swabs PadM Apply 1 (one) Swab. topically 5 (five) times a day Clean area before administering insulin. . 12/08/23 06/05/24 Sahara Sanchez MD blood sugar diagnostic (glucose blood) strips by Miscellaneous route 3 (three) times a day As a backup to CGM to test blood sugar. One Touch Verio . 12/08/23 06/05/24 Sahara Sanchez MD Dexcom G6 Bindery Machine Tender Misc Use as directed for continuous glucose [...] further details. Associated Order(s): IP CONSULT TO POCKET MACHINE OPERATOR; IP CONSULT TO POCKET MACHINE OPERATOR Admission Dx: Reviewed H&P, Chart Review and [...] [facility] ASSESSMENT AND PLAN: Diabetes T2 with neuropathy [...] YEAR OLD female WAS ADMITTED TO [facility] 03/24/2024 [...] Results from last 7 days Lab Units 03/24/242252 ALK PHOS U/L 139 BILIRUBIN TOTAL mg/dL 0.5 BILIRUBIN DIRECT mg/dL <0.2 TOTAL PROTEIN g/dL 8.1* ALT U/L 16 AST U/L 16 * Cannot find OR log * IMAGING: ECG 12- Lead Result Date: 03/25/2024 Sinus tachycardia Possible Anterior infarct , age undetermined Abnormal ECG Confirmed by Inessa Rao MD ([id number]) on 03/25/2024 8:01:09 AM XR Toe(s) Left [...] BID Juwan Smith MD 25 mg at 11/01/24 0827 levothyroxine (SYNTHROID, LEVOTHROID) tablet 75 mcg 75 mcg Oral Daily Juwan Smith MD 75 mcg at 03/25/24 0521 lisinopriL (PRINIVIL,ZESTRIL) tablet 40 mg 40 mg Oral Daily with lunch Juwan Smith MD metoprolol succinate (TOPROL-XL) 24 hr tablet 50 mg 50 mg Oral Daily Juwan Smith MD naloxone (NARCAN) injection 0.1 mg 0.1 mg Intravenous PRN Floyd Rubin RP,PharmD And naloxone (NARCAN) injection 0.4 mg 0.4 mg Intravenous PRN Floyd Rubin RPh,PharmD nortriptyline (PAMELOR) capsule 25 mg 25 mg Oral Nightly Juwan Smith MD oxyCODONE-acetaminophen (PERCOCET) 5-325 mg per tablet 1 tablet 1 tablet Oral Q4H PRN Juwan Smith MD 1 tablet at 03/25/24 0827 pantoprazole (PROTONIX) EC tablet 40 mg 40 mg Oral QAM AC Juwan Smith MD 40 mg at 03/25/24 0827 piperacillin-tazobactam (ZOSYN) IVPB 3.375 g (premix) 3.375 [...] flush 5 mL 5 mL Intravenous Q8H [facility] Juwan Smith MD And sodium chloride 0.9% (NS) 0-150 mL/hr Intravenous PRN Juwan Smith MD Subcutaneous Insulin Pump (NURSING: Use this for BASAL RATE DOCUMENTATIONS) Miscellaneous Q12H [facility] Juwan Smith MD And Subcutaneous [...] mL 1,250 mg Intravenous Q24H Floyd Rubin [facility],PharmD Medications Prior to Admission Medication Sig Dispense [...] daily . 90 tablet 1 Dexcom G6 Bindery Machine Tender Misc Use as directed for continuous glucose [...] Shameka Castillo DPM documented in this encounter [facility] 03-31-2024 Note [facility] 03-31-2024 Note [facility] 03-30-2024 History of Present illness Narrative [facility] prescription request form complete for Omnipod / faxed documented in this encounter [facility] 03-30-2024 Note [facility] 03-30-2024 Note [facility] 03-30-2024 Note [facility] 03-29-2024 Note [facility] 03-29-2024 Note [facility] 03-28-2024 Note [facility] 03-28-2024 Note [facility] 03-28-2024 Note [facility] 03-27-2024 Note [facility] 03-26-2024 Note [facility] 03-26-2024 Note [facility] 03-25-2024 History and physical note Images from the original note were not included. [facility] [place]ICAL [place] [facility] Patient Name: Addie Jean Baptiste : 1975 MR #: [id number] Admit Date: 03/24/2024 Physicians: Stephany Pelayo PA-C (Family); No ref. provider found (Referring) Addie Jean Baptiste is a 48 y.o. female patient of Stephany Pelayo PA-C with history of T2DM, HTN, bipolar disorder, and chronic back pain presented to [facility] on 03/25/2024 with left toe wound. [...] expedite correspondence this note was generated by [employer] voice recognition software. The voice recognition software is inherently subject to errors including those of syntax and sound-alike substitutions which may escape proofreading. If such errors are discovered, or if there are any questions or concerns regarding the recommendations/plan of care, please contact the author of the note prior to undertaking the recommendations/plan of care. documented in this encounter [facility] 03-24-2024 Emergency department Note Associated Order(s): ECG 12- Lead Images from the original note were not included. [place] [id number] NAME: Addie Jean Baptiste AGE: 48 y.o. PCP: Stephany Pelayo PA-C CSN: [id number] Chief Complaint: Toe Pain CLINICAL IMPRESSION: 1. [...] tablet 40 mg ( Oral Canceled Entry 03/25/24 0400) busPIRone (BUSPAR) tablet 30 mg (has no [...] tablet 4 mg (4 mg Oral Given 03/25/24333) Subcutaneous Insulin Pump (NURSING: Use this for [...] syringe 4 mg (4 mg Intravenous Given 03/24/242218) sodium chloride 0.9% (NS) bolus 1,000 mL [...] available in inpatient encounters. Please contact a systems mechanic. --- HISTORY Chief Complaint: Toe Pain History [...] resistant Staphylococcus aureus) Pacemaker Seizures (HCC) Stroke ([facility]) Past Surgical History: Past Surgical History: Procedure [...] total) by mouth daily . Dexcom G6 Bindery Machine Tender Misc Use as directed for continuous glucose [...] -- (!) 109 -- -- -- -- 03/24/240 (!) 166/97 -- -- (!) 118 -- 98 % -- -- 03/24/240 (!) 144/103 -- -- (!) 112 18 99 % -- -- 03/24/242218 -- -- -- -- 18 -- -- [...] All other components within normal limits Narrative: [facility] has implemented the eGFR calculation [...] Procedure Abnormality Status --------- ------ CBC Auto Differential[[id number]] Abnormal Final result Please view results for [...] sinus rhythm and sinus tachycardia BPM: 109 [place] Interval: 176 QRS Interval: 82 QT Interval: 328 Clinical impression: abnormal ECG and sinus tachycardia Ani Gonzales, MSN, MULTIPLE DRUM SANDER-BC, ENP-C Emergency Department Nurse Practitioner [facility] Emergency Department (Please note that portions [...] Ctiy medic 29 documented in this encounter [facility] 03-24-2024 Telephone encounter Note Pt called [facility] is out of Percocet. Pharmacy [facility] on refill request. Pt asked to let you know she is seeing white mixing operator on Thursday for possible surgery. [facility] 03-24-2024 Miscellaneous Notes Pt called [facility] is out of Percocet. [facility]ill [facility]. Pt asked to let you know she is seeing white mixing operator on Thursday for possible surgery. documented in this encounter [facility] 03-22-2024 Note [facility] INTERNAL MEDIC[facility] [place] [address] Subjective Patient ID: Addie Jean Baptiste is [...] daily . 90 tablet 1 Dexcom G6 Bindery Machine Tender Misc Use as directed for continuous glucose monitoring . 1 each 0 Dexcom G6 Sensor Simran Use as directed for continuous glucose monitoring change every 10 days . 3 each 11 Dexcom G6 Transmitter Simran Use as directed for continuous glucose monitoring change every 3 months . 1 each 3 glucagon (Gv (more content not included)... [facility] 03-22-2024 History of Present illness Narrative [facility] INTERNAL MEDIC[facility] [place] [address] Subjective Patient ID: Addie Jean Baptiste is [...] resistant Staphylococcus aureus) Pacemaker Seizures (HCC) Stroke ([facility]) Past Surgical History: Procedure Laterality Date CHOLECYSTECTOMY [...] daily . 90 tablet 1 Dexcom G6 Bindery Machine Tender Misc Use as directed for continuous glucose [...] Stephany Pelayo PA-C documented in this encounter [facility] 03-08-2024 Telephone encounter Note Per med list, patient not taking Tizanadine. But she requested a refill. [facility] 03-08-2024 Miscellaneous Notes Per med list, patient not taking Tizanadine. But she requested a refill. documented in this encounter [facility] 03-01-2024 Note PROGRESS :This repor t has been cancelled. [facility] 02-08-2024 Telephone encounter Note Patient asking [...] mg total) by mouth daily. 10/07/23 [facility] Patient last seen: 10/07/23 Patient next scheduled appt: 03/01/24 [facility] 02-08-2024 Miscellaneous Notes Patient asking for refill [...] mg total) by mouth daily. 10/07/23 [facility]acy[facility] Patient last seen: 10/07/23 Patient next scheduled appt: 03/01/24 documented in this encounter [facility] 02-03-2024 Telephone encounter Note PA requires tablets please double check the rx I sent you please. [facility] 02-03-2024 Miscellaneous Notes PA requires tablets please double check the rx I sent you please. [facility]d call [facility]. RX states to take 1 capsule 2 times a day as needed, then it says 2 tabs p.o. nightly. Qty 60. Please correct and resend. documented in this encounter [facility] 02-03-2024 Telephone encounter Note Rcvd call [facility]ist at [facility]. RX states to take 1 capsule 2 times a day as needed, then it says 2 tabs p.o. nightly. Qty 60. Please correct and resend. [facility] 02-02-2024 Jim Berrios DO - 02/02/2024 4:17 PM EDT 1. [...] p.o. nightly only documented in this encounter [facility] 02-02-2024 History of Present illness Narrative [facility] Interventional Pain Management Office Note [...] (1,000 mcg total) by mouth daily Reasons: [facility]. Dexcom G6 Bindery Machine Tender Misc Use as directed for continuous glucose [...] OPIOIDS Jim Velez D.O. Interventional Pain Management [facility] documented in this encounter [facility] 01-27-2024 History of Present illness Narrative MELVIN Jean Baptiste is a 48 y.o. female Chief Complaint Patient presents with Follow-up Hosp follow up-left big toe Addie Jean Baptiste presents for hospital follow-up. She was seen at [facility] on 01/12/24 [...] She has not been to pharmacy to knot picker cloth her antibiotic. Reports she is in a [...] (gastroesophageal reflux disease) Hypothyroidism Diabetic peripheral neuropathy ([facility]) Insomnia Generalized weakness Diabetic ulcer of right foot associated with type 2 diabetes mellitus ([facility]) Muscle spasms of both lower extremities Bowel incontinence Vitamin B12 deficiency Vitamin D deficiency Cigarette nicotine dependence COPD (chronic obstructive pulmonary disease) (HCC) Left-sided weakness History of stroke Visual loss, left eye Weight gain Family history of pulmonary fibrosis Family history of dementia Urinary incontinence Chronic headaches Hypercholesterolemia CKD (chronic kidney disease) Retinal hemorrhage Diabetic ulcer of left great toe ([facility]) Current Outpatient Medications: albuterol (PROVENTIL) 2.5 mg [...] (1,000 mcg total) by mouth daily Reasons: [facility]., Disp: 90 tablet, Rfl: 1 Dexcom G6 Bindery Machine Tender [place], Use as directed for continuous glucose monitoring [...] this upon discharge, missed last day to knot picker cloth from pharmacy Medications refilled as needed - [...] to the patient. documented in this encounter [facility] 01-18-2024 History of Present illness Narrative AVS reviewed with patient. All requested supplies given to patient. Education on wound care provided to patient. Patient escorted to sister's car via wheelchair. All questions answered at this time. Barriers to finding accepting [facility] agency: pt's home location (not many [facility] agencies in area), insurance not widely accepted HH agency: Accepted or Pending Name of agency: Accepted [facility] Referrals sent to: (names of agencies) Declined: [facility] [place] [facility] - [place] [facility] - staffing [facility] - no PT/OT [facility] Please be aware [facility] agencies have up to 24hours to respond. Many [facility] agencies closed on weekends, may take until Thursday to receive responses. [facility] created for the following services: yes - SN/PT/OT Verify the demographics (residential address) [address] [place], [place] [id number] What is the primary number to reach you? [phone] Who is your family physician/primary care physician? Stephany Pelayo PA-C [phone] Following physician will be: (list first name/last [...] Jean Baptiste Admit Date: [id number] MR #: [id number] : 1975 Perpetual Assessment: Addie Jean Baptiste [...] remainder of the foot. -Per podiatry, p.o. Jolene on discharge. 3. CKD stage II/IIIa: Pt dos not follow with a reliability technicians in the OP setting. Risk factors for [...] created by dictation via voice recognition software ([employer]). The completed note was reviewed for accuracy. [...] 3:55 PM EDT I personally performed a [id number] encounter and discussed in detail with the [...] CHLORIDE mmol/L 113* 111* 109* BICARB mmol/L BUN mg/dL 30* 27* 27* CREATININE mg/dL [...] created by dictation via voice recognition software ([employer]). The completed note was reviewed for accuracy. [...] Stability: Added to AVS, Other (CHW referral) [facility] [place] NOTE Assessment and Plan Addie Jean Baptiste is a 48 y.o. female patient of Stephany Pelayo PA-C with history of T2DM, HTN, bipolar disorder, and chronic back pain presented to [facility] on 01/12/2024 with left toe wound. [...] g/dL 9.3* 9.4* 9.9* PLT K/mcL 259 983 266 Results from last 7 days Lab Units 01/17/24 0454 01/16/24 0354 01/15/24 0528 SODIUM mmol/L 143 143 143 POTASSIUM mmol/L 4.8 4.5 4.2 BICARB mmol/L BUN mg/dL 30* 27* 27* CREATININE mg/dL 1.69* 1.63* 1.59* GLUCOSE mg/dL 127* 103* 102* CALCIUM mg/dL 8.6 8.8 8.7 PHOSPHORUS mg/dL 3.7 4.1 4.8* Results from last 7 days Lab Units 01/17/24 0454 01/16/24 0354 01/15/24 0528 ALBUMIN g/dL 3.2 3.3 [...] (1,000 mcg total) by mouth daily Reasons: [facility]. Dexcom G6 Bindery Machine Tender Misc Use as directed for continuous glucose [...] 100 mL/hr (01/14/24 1256) subcutaneous insulin pump [facility] PROGRESS NOTE Assessment and Plan Addie Jean Baptiste is a 48 y.o. female patient of Stephany Pelayo PA-C with history of T2DM, HTN, bipolar disorder, and chronic back pain presented to [facility] on 01/12/2024 with left toe wound. [...] 01/16/2024 0804 Last data filed at 01/15/2024 2041 Gross [...] (1,000 mcg total) by mouth daily Reasons: [facility]. Dexcom G6 Bindery Machine Tender Misc Use as directed for continuous glucose [...] Visit With Patient;Healthcare Provider Visit By Staff Labor Standards Director Visit Progression Attempt Visit Requested By Labor Standards Director Initiated Visit Source Labor Standards Director Initiated Visit Type Inpatient;Rounding Visit Circumstances and Events Routine Visit Visit Length (minutes) 5 Patient's Response to Pastoral Care Timing of Visit Not Optimal. Visit Rescheduled (Patient care needed) Visit Planning PRN Spiritual Assessment Unable to Assess during this visit Buddhism Assessment Unable to Assess during this visit Family assessment provided? Unable to asess during this visit Rev. Addie Bland MDiv. Staff Labor Standards Director [facility] Contact Care Management Progress Note Date: 01/15/2024 Time: 4:21 PM Patient Name: Addie Organ Date of : 1975 Discharge Plan: Plan [...] Stability: Added to AVS, Other (CHW referral) [facility] [place]ESS NOTE Assessment and Plan Addie Jean Baptiste is a 48 y.o. female patient of Stephany Pelayo PA-C with history of T2DM, HTN, bipolar disorder, and chronic back pain presented to [facility] on 01/12/2024 with left toe wound. [...] (1,000 mcg total) by mouth daily Reasons: [facility]. Dexcom G6 Bindery Machine Tender Misc Use as directed for continuous glucose [...] Health Care Services Assessment and Background Information: [facility] Needs Addressed: Food Insecurity, Housing Stability, Financial Resource Strain Resources Provided - Food Insecurity: Added to AVS, Other (CHW referral) Resources Provided - Housing Stability: Added to AVS, Other (CHW referral) Barriers to finding accepting [facility] agency: pt's home location (not many [facility] agencies in area), insurance not widely accepted [facility] agency: Accepted or Pending Name of agency: Accepted but cannot open for SOC until 01/18 [facility] Referrals sent to: (names of agencies) Declined: [facility] [place] [place] [facility] [place] [place] [place] [facility]- [place] [facility] - staffing [facility]- no [facility]ot [facility] Please be aware [facility] agencies have up to 24hours to respond. Many [facility] agencies closed on weekends, may take until Thursday to receive responses. [facility] created for the following services: yes - SN/PT/OT Verify the demographics (residential address) [address] [place] [address] What is the primary number to reach you? [phone] Who is your family physician/primary care physician? Stephany Pelayo PA-C [phone] Do you have a caregiver and/or teachable caregiver (list relationship, name & phone #)? lives with family Estimated Discharge Date (KUNAL): 01/14 If discharge needs change, please reach out to Hub Liaison assigned on treatment team as hub is not notified of additional consults to [facility] once team is following. [facility] INPATIENT PROGRESS NOTE ASSESSMENT AND PLAN: Diabetes [...] % -- -- 6.5 Invalid input(s): [facility] [place] Assessment and Plan Addie Jean Baptiste is a 48 y.o. female patient of Stephany Pelayo PA-C with history of T2DM, HTN, bipolar disorder, and chronic back pain presented to [facility] on 01/12/2024 with left toe wound. [...] (1,000 mcg total) by mouth daily Reasons: [facility]. Dexcom G6 Bindery Machine Tender Misc Use as directed for continuous glucose [...] Called to [facility], [facility], and [facility]. Results are listed below. More referrals sent. Barriers to finding accepting [facility] agency: pt's home location (not many [facility] agencies in area), insurance not widely accepted [facility] agency: Accepted or Pending Name of agency: PENDING [facility] - call ringing and then not going through [facility] Accepted but cannot open for SOC until 01/18 [facility] Referrals sent to: (names of agencies) Declined: [facility] - [facility] - [facility] - [facility] [place] - [facility] [place] - [facility] - [facility] - staffing Please be aware [facility] agencies have up to 24hours to respond. Many [facility] agencies closed on weekends, may take until Thursday to receive responses. [facility] created for the following services: yes - SN/PT/OT Verify the demographics (residential address) [address] [facility] [facility] [address] What is the primary number to reach you? [phone] Who is your family physician/primary care physician? Stephany Pelayo PA-C [phone] Following physician will be: (list first name/last name) Do you have a caregiver and/or teachable caregiver (list relationship, name & phone #)? lives with family Estimated Discharge Date (KUNAL): 01/14 If discharge needs change, please reach out to Hub Liaison assigned on treatment team as hub is not notified of additional consults to [facility] once team is following. Thank you. 01/13/24 182 Provider Notification Reason for Communication Change in status Provider Name Judy Provider Role Hospitalist Notification Method Call Response En route Notification Time 182 [facility] [place] Assessment and Plan Addie Jean Baptiste is a 48 y.o. female patient of Stephany Pelayo PA-C with history of T2DM, HTN, bipolar disorder, and chronic back pain presented to [facility] on 01/12/2024 with left toe wound. [...] SSI. Hypoglycemic protocol. Seizure disorder Continue home ping Obesity Body mass index is 45.73 kg/m [...] (1,000 mcg total) by mouth daily Reasons: [facility]. Dexcom G6 Bindery Machine Tender Misc Use as directed for continuous glucose [...] not been spiked, are well within the remote recruiter expiration date and have been stored at room temperature (<28 days). Continue with insulin regimen as written. Please call pharmacy with any questions. Pharmacist: Yolie Knott [facility],PharmD Date: 01/12/2024 Contact Information: [phone] documented in this encounter [facility] 01-18-2024 Hospital course Narrative Images from the original note were not included. [facility] [place] Addie Jean Baptiste Admitted: 01/12/2024 Discharge Date: 01/18/24 PCP Handoff Recommended Outpatient Testing None Results Pending At Discharge None Clinical Summary Addie Jean Baptiste is a 48 y.o. female patient of Stephany Pelayo PA-C with history of T2DM, HTN, bipolar disorder, and chronic back pain presented to [facility] on 01/12/2024 with left toe wound. [...] (1,000 mcg total) by mouth daily Reasons: [facility]. Quantity: 90 tablet Dexcom G6 Bindery Machine Tender [place] Generic drug: blood-glucose meter,continuous Use as directed [...] by mouth daily . Quantity: 30 tablet [facility] [place] 1 each by Miscellaneous route daily . [...] ZANAFLEX Physician(s) Follow Up: Stephany Pelayo PA-C [facility] [address] [address] Follow up [facility] Address: [address] [facility] [address] Servicing Counties: [facility] [phone] Shameka Castillo, LUPE [address] [facility] [address] [facility] [address] Schedule an appointment as soon [...] 01/18/24, 11:00 AM documented in this encounter [facility] 01-18-2024 Hospital Discharge instructions Pippa Quiles RN - 01/18/2024 10:12 AM EDT Haven Pope RN - 01/13/2024 2:31 [place] [address] Call [phone] ext. [phone] for more information -Summer Reading Program provides an individualized reading program during the summer months. -The [facility] Rx Program is a unique collaborative program in [facility]. The program assists [place] residents to obtain prescriptions in an affordable manner for immediate and ongoing needs. -The Volunteer Income Tax Assistance (KASSY) is a free tax preparation service for low to moderate-income individuals and families. Federal and State tax returns can be completed and electronically filed. -The Emergency Food and Snf Program (EFSP) is funded by the Department of [place] [employer] to assist with emergency food and correction programs. Further information can be obtained by -The Rapid Rehousing and Homeless Prevention Programs are here to help those struggling with homelessness or who are in danger of becoming homeless. -The Payee Program assists individuals with managing their Social Security, [employer], or VA benefits. This program provides free payee services to individuals. Please note, we do not take on guardianship of the individual. -The Emergency Senior Funding is a melly from the [facility] [place] on Aging to assist those 60 and over with needs that are not met by other services in [place]. The funds are meant to help with [...] Everywhere.Caregiving: Foot and Toenail Care: General Info ([place])Chronic Wound: Healing: General Info ([place])documented in this encounter [facility] 01-17-2024 Note [facility] ostal 01-17-2024 Note [facility] ospital 01-16-2024 Consult note Associated Order (s): IP CONSULT TO NEPHROLOGY NEPHROLOGY CONSULTATION [facility] Patient Name: Addie Jean Baptiste MR #: [id number] : 1975 Requesting physician: Hospitalist Reason for [...] II/IIIa: Pt dos not follow with a reliability technicians in the OP setting. Risk factors for [...] bipolar disorder, back pain who presented to [facility] with left toe wound. Per documentation, [...] (1,000 mcg total) by mouth daily Reasons: [facility]. Dexcom G6 Bindery Machine Tender Misc Use as directed for continuous glucose [...] I have reviewed Progress Notes in the [facility] EHR and CareEverywhere. [x] I have interpreted/reviewed lab tests and radiography data in the [facility] EHR. [x] I have discussed the case with the primary service. [x] I have ordered appropriate tests/labs Comments: Thank you for allowing us to participate in the care of this patient. We will continue to follow. Please call if questions or concerns arise. Potential limitations of the note: Parts of this note were created by dictation via voice recognition software ([employer]). The completed note was reviewed for accuracy. [...] 4:07 PM EDT I personally performed a wtpa-db-xoed encounter and discussed in detail with the [...] created by dictation via voice recognition software ([employer]). The completed note was reviewed for accuracy. However, there may be subtle errors that were not found during the review. If such errors are discovered, or if there are any questions or concerns regarding the recommendations/plan of care, please contact the author of the note prior to undertaking the recommendations/plan of care. [facility] 01-16-2024 Consult note Associated Order (s): IP CONSULT TO NEPHROLOGY NEPHROLOGY CONSULTATION NOTE [facility] Patient Name: Addie Jean Baptiste MR #: [id number] : 1975 Requesting physician: Hospitalist Reason for [...] remainder of the foot. -Per podiatry, p.o. Jesusitay on discharge. 3. ?CKD stage II/IIIa: Pt dos not follow with a reliability technicians in the OP setting. Risk factors for [...] bipolar disorder, back pain who presented to [facility] with left toe wound. Per documentation, [...] (1,000 mcg total) by mouth daily Reasons: [facility]. Dexcom G6 Bindery Machine Tender Misc Use as directed for continuous glucose [...] sodium chloride 0.9 % 100 mL/hr (01/16/24 104) sodium chloride 0.9 % 100 mL/hr (01/14/24 1256) subcutaneous insulin pump PRN Meds:.albuterol, hydrALAZINE, hydrOXYzine, melatonin, nalOXone AND Notify physician AND naloxone, ondansetron OR ondansetron, oxyCODONE-acetaminophen, senna, Saline lock IV AND sodium chloride (PF) AND sodium chloride (PF) AND sodium chloride 0.9 %, traZODone sodium chloride 0.9 % 100 mL/hr (01/16/241046) sodium chloride 0.9 % 100 mL/hr (01/14/24 [...] at 01/16/2024 1055 Last data filed at 01/15/20242040 Gross per [...] I have reviewed Progress Notes in the [facility] EHR and CareEverywhere. [x] I have interpreted/reviewed lab tests and radiography data in the [facility] EHR. [x] I have discussed the case with the primary service. [x] I have ordered appropriate tests/labs Comments: Thank you for allowing us to participate in the care of this patient. We will continue to follow. Please call if questions or concerns arise. Potential limitations of the note: Parts of this note were created by dictation via voice recognition software ([employer]). The completed note was reviewed for accuracy. [...] 4:07 PM EDT I personally performed a homh-sm-fern encounter and discussed in detail with the [...] created by dictation via voice recognition software ([employer]). The completed note was reviewed for accuracy. [...] Assessment Limitations Including: Pain, Mechanical Barriers Are animal laboratory technician Therapy Services Needed After Discharge: Yes Intensity of animal laboratory technician Therapy: 2-3 days per week Anticipated Duration of animal laboratory technician Therapy: Duration 10 - 30 days PT DME Recommendation: Wheeled Walker Rehab Potential: Excellent, For goals Outcomes Measures Prior Function - Basic Mobility Raw Score: 24 Points Prior Function - Basic Mobility % Impaired: 0% AM-PAC Basic Mobility Raw Score: 16 Points -[facility] Basic Mobility % Impaired: 47.12% Physical Therapy [...] Independent Standing Balance - Static: Minimal assist Senior Ui Ux Designer - Standing Static: BUE Standing Balance - Dynamic: Minimal assist, 2 person Senior Ui Ux Designer - Standing Dynamic: same band aid machine operator used for static standing tasks Bed Mobility Supine to Sit: (NT- Patient was up in chair before and After PT eval) Transfers Sit to Stand: Contact guard assist Bed to Chair: Contact guard assist Senior Ui Ux Designer: BUE (Patient uses cane, but reports that [...] Function Receives Help From: Family Level of [place] - Transfers/Ambulation/Mobility: Independent with functional transfers, Independent with household ambulation Level of [place] - ADLs: Needs assistance Level of [place] - Homemaking: Independent Past Medical History: Diagnosis [...] motivation. The patient's home setup is a supervisor tumbling and rolling, family / caregiver support is a supervisor tumbling and rolling for return to prior level of function. The patient's education level is a supervisor tumbling and rolling, compliance is a supervisor tumbling and rolling to return to prior level of function. [...] assist Supine to Sit: Contact guard assist Senior Ui Ux Designer: bedrails Functional Transfers Sit to Stand: Contact guard assist Bed to Chair Transfers: Contact guard assist Stand Pivot Transfers: Contact guard assist Senior Ui Ux Designer: (gait belt, shoe, sock) Additional Assessment Details [...] Function Receives Help From: Family Level of [place] - Transfers/Ambulation/Mobility: Independent with functional transfers Level of [place] - ADLs: Needs assistance Level of [place] - Homemaking: Independent Past Medical History: Diagnosis [...] received a Home Health Hub consult for [facility] needs. Patient's agency choice is no preference (would prefer not [facility]) Barriers to finding accepting [facility] agency: pt's home location (not many [facility] agencies in area), insurance not widely accepted [facility] agency: Accepted or Pending Name of agency: PENDING [facility] Referrals sent to: (names of agencies) Declined: [facility] - [facility] [place] - [facility] - [facility] [place] - [facility] Please be aware [facility] agencies have up to 24hours to respond. Many [facility] agencies closed on weekends, may take until Thursday to receive responses. [facility] created for the following services: yes - SN/PT/OT Verify the demographics (residential address) [address] [place], [place] [id number] What is the primary number to reach you? [phone] Who is your family physician/primary care physician? Stephany Pelayo PA-C [phone] Following physician will be: (list first name/last name) Do you have a caregiver and/or teachable caregiver (list relationship, name & phone #)? lives with family Estimated Discharge Date (KUNAL): 01/14 If discharge needs change, please reach out to [facility] Liaison assigned on treatment team as [facility] is not notified of additional consults to [facility] once team is following. Thank you. Associated [...] needs. Pt lives with her son and dqhmkoqh-rl-ejf, they provide support. She states that she [...] agency but does not wish to have [facility]. Referral to [facility] entered. Plan A: Pt will return home [...] YEAR OLD female WAS ADMITTED [place] [facility] [place]/12/2024 [...] tablet 30 mg 30 mg Oral Q12H [facility] Mk Leigh MD 30 mg at 01/12/248 chlorthalidone (HYGROTON) tablet 25 mg 25 mg Oral Daily Mk Leigh MD citalopram (CELEXA) tablet 20 mg 20 mg Oral Daily Mk Leigh MD divalproex (DEPAKOTE) delayed release (DR) tablet 500 mg 500 mg Oral Q12H [facility] Mk Leigh MD hydrOXYzine (ATARAX) [...] (1,000 mcg total) by mouth daily Reasons: [facility]. 90 tablet 1 Dexcom G6 Bindery Machine Tender Misc Use as directed for continuous glucose [...] Shameka Castillo DPM documented in this encounter [facility]16[facility]20[facility] Note Formatting of this n [...] Absence of physical injury Outcome: Partially Met [facility] 01-15-2024 Miscellaneous Notes Problem: Actual or potential [...] Outcome: Partially Met documented in this encounter [facility] 01-15-2024 Note [facility] 01-14-2024 Note [facility] 01-14-2024 Note [facility] 01-14-2024 Consult note Formatting of th is note is different from the original. Physical Therapy PHYSICAL THERAPY EVALUATION Skilled Therapy Needs After Discharge Anticipate Resolution of Current Assessment Limitations Including: Pain, Mechanical Barriers Are animal laboratory technician Therapy Services Needed After Discharge: Yes Intensity of animal laboratory technician Therapy: 2-3 days per week Anticipated Duration of animal laboratory technician Therapy: Duration 10 - 30 days PT [...] Independent Standing Balance - Static: Minimal assist Senior Ui Ux Designer - Standing Static: BUE Standing Balance - Dynamic: Minimal assist, 2 person Senior Ui Ux Designer - Standing Dynamic: same band aid machine operator used for static standing tasks Bed Mobility Supine to Sit: (NT- Patient was up in chair before and After PT eval) Transfers Sit to Stand: Contact guard assist Bed to Chair: Contact guard assist Senior Ui Ux Designer: BUE (Patient uses cane, but reports that [...] Function Receives Help From: Family Level of [place] - Transfers/Ambulation/Mobility: Independent with functional transfers, Independent with household ambulation Level of [place] - ADLs: Needs assistance Level of [place] - Homemaking: Independent Past Medical History: Diagnosis [...] hospital or completion of Physical Therapy Plan. [facility] 01-14-2024 Consult note Formatting of th is [...] motivation. The patient's home setup is a supervisor tumbling and rolling, family / caregiver support is a supervisor tumbling and rolling for return to prior level of function. The patient's education level is a supervisor tumbling and rolling, compliance is a supervisor tumbling and rolling to return to prior level of function. [...] assist Supine to Sit: Contact guard assist Senior Ui Ux Designer: bedrails Functional Transfers Sit to Stand: Contact guard assist Bed to Chair Transfers: Contact guard assist Stand Pivot Transfers: Contact guard assist Senior Ui Ux Designer: (gait belt, shoe, sock) Additional Assessment Details [...] Function Receives Help From: Family Level of [place] - Transfers/Ambulation/Mobility: Independent with functional transfers Level of [place] - ADLs: Needs assistance Level of [place] - Homemaking: Independent Past Medical History: Diagnosis [...] completion of Occupational Therapy Plan of Care. [facility] 01-13-2024 Note Formatting of this n ote might be different from the original. I performed a substantive part of the MDM during the patient's E/M visit. I personally made or approved the documented management plan and acknowledge its risk of complications Management/test interpretation discussed with midlevel provider. [facility] Work Phone: 01-13-2024 Consult note Associated Order (s): IP CONSULT TO HOME HEALTH HUB 01/13/24 2:37 PM - Liaison received a Home Health Hub consult for [facility] needs. Patient's agency choice is no preference (would prefer not [facility]) Barriers to finding accepting [facility] agency: pt's home location (not many [facility] agencies in area), insurance not widely accepted [facility] agency: Accepted or Pending Name of agency: PENDING [facility] Referrals sent to: (names of agencies) Declined: [facility] - [facility] [place] - [facility] Please be aware [facility] agencies have up to 24hours to respond. Many [facility] agencies closed on weekends, may take until Thursday to receive responses. [facility] created for the following services: yes - SN/PT/OT Verify the demographics (residential address) [address] [place], [place] [id number] What is the primary number to reach you? [phone] Who is your family physician/primary care physician? Stephany Pelayo PA-C [phone] Following physician will be: (list first name/last name) Do you have a caregiver and/or teachable caregiver (list relationship, name & phone #)? lives with family Estimated Discharge Date (KUNAL): 01/14 If discharge needs change, please reach out to Hub Liaison assigned on treatment team as hub is not notified of additional consults to [facility] once team is following. Thank you. [facility] 01-13-2024 Consult note Associated Order (s): IP [...] needs. Pt lives with her son and [id number], they provide support. She states that she [...] agency but does not wish to have [facility]. Referral to Hub entered. Plan A: Pt will return home with her family, home health services to be arranged. Plan B: Will follow pt for any additional needs. Assessment and Background Information: Living Arrangements: Family members Support Systems: Family members Assistance Needed: n/a Type of Residence: Private residence Prior to Admission Home Care Services: No Current Home Equipment: (Electric scooter) [facility] 01-13-2024 Note Formatting of this n ote might be different from the original. PHYSICAL THERAPY VISIT VARIANCE NOTE Attempted to see patient at this time, but unable secondary to: Patient Unavailable (comment) (currently BHAVNA for CAT scan). Will follow up as appropriate. [facility] 01-13-2024 Note Formatting of this n ote might be different from the original. Patient has an ICD that is MRI compatible but she does not follow up with anyone for her device check. We do not have anyone to send MRI cardiology order form. [facility] 01-13-2024 Note Formatting of this n ote [...] level of psychosocial functioning Outcome: Partially Met [facility] 01-13-2024 Note Velia méndez 01-13-2024 Consult note Associated Order (s): IP [...] wound bed and gema wound is red. [facility] 01-13-2024 Consult note Associated Order (s): IP CONSULT TO PODIATRY Images from the original note were not included. [facility] ASSESSMENT AND PLAN: Diabetes with neuropathy left [...] YEAR OLD female WAS ADMITTED TO [facility] ON 01/12/2024 [...] tablet 30 mg 30 mg Oral Q12H [facility] Mk Leigh MD 30 mg at 01/12/24 2218 chlorthalidone (HYGROTON) tablet 25 mg 25 mg Oral Daily Mk Leigh MD citalopram (CELEXA) tablet 20 mg 20 mg Oral Daily Mk Leigh MD divalproex (DEPAKOTE) delayed release (DR) tablet 500 mg 500 mg Oral Q12H [facility] Mk Leigh MD hydrOXYzine (ATARAX) [...] (1,000 mcg total) by mouth daily Reasons: [facility]. 90 tablet 1 Dexcom G6 Bindery Machine Tender Misc Use as directed for continuous glucose [...] 12/24/23. 30 tablet 0 Shameka Castillo DPM [facility] 01-12-2024 History and physical note [facility] [place] [facility] Patient Name: Addie Jean Baptiste : 1975 MR #: [id number] Admit Date: 01/12/2024 Physicians: Stephany Pelayo PA-C (Family); No ref. provider found (Referring) Addie Jean Baptiste is a 48 y.o. female patient of Stephany Pelayo PA-C with history of T2DM, HTN, bipolar disorder, and chronic back pain presented to [facility] on 01/12/2024 with left toe wound. [...] disorder, and chronic back pain presented to [facility] on 01/12/2024 with left toe wound. [...] Hennessy MD - 01/12/2024 6:33 PM EDT [facility] [place] ADDENDUM I saw and examined the [...] 2, diabetic peripheral neuropathy Seizure disorder Obesity [facility] 01-12-2024 History and physical note [facility] [place] [facility] Patient Name: Addie Jean Baptiste : 1975 MR #: [id number] Admit Date: 01/12/2024 Physicians: Stephany Pelayo PA-C (Family); No ref. provider found (Referring) Addie Jean Baptiste is a 48 y.o. female patient of Stephany Pelayo PA-C with history of T2DM, HTN, bipolar disorder, and chronic back pain presented to [facility] on 01/12/2024 with left toe wound. [...] disorder, and chronic back pain presented to [facility] on 01/12/2024 with left toe wound. [...] Hennessy MD - 01/12/2024 6:33 PM EDT [facility] [place] I saw and examined the [...] Seizure disorder Obesity documented in this encounter [facility] 01-12-2024 Emergency department Note Hourly rounding completed. Patient updated on plan on care. Comfort measures offered, patient given water and a warm blanket. No other needs at this time. [facility] 01-12-2024 Emergency department Note Hourly rounding completed. Patient updated on plan on care. Comfort measures offered, patient given water and a warm blanket. No other needs at this time. ED PROVIDER NOTE [facility] EMERGENCY DEPARTMENT NAME: Addie Jean Baptiste AGE: 48 y.o. : 1975 VISIT DATE: 01/12/2024 CSN: [id number] PCP: Stephany Pelayo PA-C Clinical Impression: 1. [...] and MRI. I discussed this case with [facility] [place] and they are willing to admit patient. [...] precipitated this pain. History provided by: Patient departmental secretary used: No Wound Check Past Medical History: [...] (1,000 mcg total) by mouth daily Reasons: [facility]. Dexcom G6 Bindery Machine Tender Misc Use as directed for continuous glucose [...] And Without Contrast (Results Pending) Procedures . BHRAAT Austin Zachary Joel, PA-C 01/12/24 170 Pt [facility] brought in [facility]. Pt was seeing primary doc and was referred to our ED for a Lt great toe inf. Pt had an ongoing toe inf-- last Thursday skin/toe nail came off tip of toe. No drainage/odor noted at this time. Bed: 02 Expected date: Expected time: Means of arrival: Comments: 28: 48F toe infection documented in this encounter [facility] 01-12-2024 Physician Emergency department Note ED PROVIDER NOTE [facility] EMERGENCY DEPARTMENT NAME: Addie Organ AGE: 48 y.o. : 1975 VISIT DATE: 01/12/2024 CSN: [id number] PCP: Stephany Pelayo PA-C Clinical Impression: 1. [...] and MRI. I discussed this case with [facility] [place] are willing to [place] patient. [...] precipitated this pain. History provided by: Patient departmental secretary used: No Wound Check Past Medical History: [...] (1,000 mcg total) by mouth daily Reasons: [facility]. Dexcom G6 Bindery Machine Tender Misc Use as directed for continuous glucose [...] BHARAT Austin Zachary Joel, PA-C 01/12/24 1702 [facility] 01-12-2024 History of Present illness Narrative [facility] INTER[facility] [address] [place] [address]. [place] [address] Patient: Addie Jean Baptiste is a 48 [...] (1,000 mcg total) by mouth daily Reasons: [facility]. 90 tablet 1 Dexcom G6 Bindery Machine Tender Mis Use as directed for continuous glucose [...] (HCC) Note: This dictation was generated using [employer] voice recognition software. Please excuse any grammatical [...] Stephany Pelayo PA-C documented in this encounter [facility] 01-12-2024 Emergency department Note Pt was brought in [facility]. Pt was seeing primary doc and was referred to our ED for a Lt great toe inf. Pt had an ongoing toe inf-- last Thursday skin/toe nail came off tip of toe. No drainage/odor noted at this time. [facility] 01-12-2024 Emergency department Note Bed: 02 Expected date: Expected time: Means of arrival: Comments: 28: 48F toe infection [facility] 01-11-2024 Telephone encounter Note Last UDS 12/08/23 Last OV 12/08/23 Next OV 02/02/24 [facility] 01-11-2024 Miscellaneous Notes Last UDS 12/08/23 Last OV 12/08/23 Next OV 02/02/24 documented in this encounter [facility] 12-21-2023 Telephone encounter Note Pt states Percocet is helping a lot with pain. Requesting 30 day supply. [facility] 12-21-2023 Miscellaneous Notes Pt states Percocet is helping a lot with pain. Requesting 30 day supply. documented in this encounter [facility] 12-14-2023 History of Present illness Narrative Ne supplies order faxed to [facility]. Confirmation received. documented in this encounter [facility] 12-08-2023 Telephone encounter Note Refill DM medications. Dexcom downloaded for review and insulin RX needs completed [facility] 12-08-2023 Miscellaneous Notes Refill DM medications. Dexcom downloaded for review and insulin RX needs completed documented in this encounter [facility] 12-08-2023 Telephone encounter Note duplicate [facility] 12-08-2023 Miscellaneous Notes duplicate documented in this encounter [facility] 12-08-2023 Instructions Jim Velez DO - 12/08/2023 2:29 PM EDT 1. Obtain UDS 2. Order water therapy followed by land therapy 3. Discussed dietary modification and weight loss 4. Resume Lyrica 75 mg 1 p.o. twice daily 5. Discussed starting Percocet 5/325 1 p.o. nightly as needed after review of UDS 6. Continue tizanidine 4 mg 2 p.o. nightly only . documented in this encounter [facility] 12-08-2023 History of Present illness Narrative [facility] Interventional Pain Management Office Note Patient Name: Addie Jean Baptiste Referring Physician: Stephany Pelayo PA-C Date of : 1975 PCP: Stephany Pelayo PA-C Date of Service: 12/09/23 This is a 48 y.o. female who presents to [place] [facility] for an initial consultation. After [...] (1,000 mcg total) by mouth daily Reasons: [facility]. Dexcom G6 Bindery Machine Tender Misc Use as directed for continuous glucose [...] OPIOIDS Jim Velez D.O. Interventional Pain Management [facility] documented in this encounter [facility] 12-02-2023 Instructions Sahara Sanchez MD - 12/02/2023 3:18 PM EDT Thank you for choosing the [facility]. Please get labs on the [...] if you are interested in seeing a unit educator/dietitian. Please call our office at [phone] or send a [employer] message if you have any questions or [...] and bedtime CGM documented in this encounter [facility] 12-02-2023 History of Present illness Narrative Images from the original note were not included. [facility] [address] Addie Jean Baptiste is a 48 y.o. female being seen for Diabetes Mellitus PCP: Stephany Pelayo PA-C Referring Physician: Stephany Pelayo PA-C HPI: She is here for consultation regarding management of type 1 diabetes that was diagnosed at 23 years of age. Started on insulin in 2004, switch to OmniPod several years ago. Currently on OmniPod 5. She has relocated from [facility] to [place] in 2022, was following up with endocrinology while in [place]. 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 90 tablet 1 ergocalciferol (Vitamin D2) [...] needed . 90 tablet 0 Dexcom G6 Bindery Machine Tender Misc Use as directed for continuous glucose [...] PT pulses, and absent sensations , callus EXPLOSIVE ORDNANCE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 Board [employer] Pharmacy Positive ID requirements for immunization orders. . 0.5 mL 0 fluticasone-salmeterol (ADVAIR DISKUS) 250-50 mcg/dose diskus inhaler Inhale 1 (one) puff 2 (two) times a day . FreeStyle Zeinab 2 [place] Misc Inject 1 each under the skin [...] Comments: Agitated, tangential documented in this encounter [facility] 04-27-2023 agency development manager Note NO OT services provided this date due to patient refused due to illness. [facility] 04-27-2023 Miscellaneous Notes NO OT services provided this date due to patient refused due to illness. documented in this encounter [facility] 03-30-2023 Miscellaneous Notes Pt port de-accessed per Dr order without complication. No bleeding, or sign of infection present. This nurse read over AVS with patient, who had no questions at this time. Pt declined staff transport via wheelchair for discharge. Pt daughter- in- law transported via wheelchair for discharge. Pt discharged in stable condition. [id number] ENCOUNTER FOR HOME MEDICAL EQUIPMENT PATIENT: Addie Organ : 1975 Statement of Care: I certify that Addie Organ is under my care and that I had a dxqe-or-cxwd encounter with this patient today to evaluate and discuss the need for home medical equipment. I certify that based on the findings of this evaluation, which included but was not limited to the qrtz-xw-fctm requirements, the following home medical equipment is [...] Outcome: Partially Met documented in this encounter [facility] 03-30-2023 Note Formatting of this n ote [...] for discharge. Pt discharged in stable condition. [facility] 03-30-2023 Hospital course Narrative [facility] Addie Jean Baptiste Admitted: 03/29/2023 Discharge Date: 03/30/23 PCP Handoff Recommended Outpatient Testing None Results Pending At Discharge None Clinical Summary Addie Jean Baptiste is a 47 y.o. female patient of System, Provider Not In with history of T2DM, seizure disorder, HTN, and chronic back pain presented to [facility] with chest pain. Assessment and Plan [...] Physician(s) Follow Up: [facility] Address: [facility] [place] [phone] Condition at Discharge: Stable Disposition: Home On day of discharge, I performed a final bedside evaluation including a physical exam. I reviewed discharge recommendations with the patient in person. Patient instructions, including activity, were given to the patient/family at discharge. Time spent on discharge: > 30 minutes Completed by: Harshad Rizzo on 03/30/23, 12:52 PM documented in this encounter [facility] 03-30-2023 Consult note Associated Order (s): IP CONSULT TO [facility] agency: Accepted or Pending Name of agency: (if [facility], include region) [facility] can accept. [facility] created for the following services: [or waiting for ____ (i.e wound care)] Yes, SN/PT/OT/aide Verify the demographics (residential address) [address] [place] [address] What is the primary number to reach you? [phone] Who is your family physician/primary care physician? PCP Sheng [facility] [phone] Message left with office Do you have a caregiver and/or teachable caregiver (list relationship, name & phone #)? Shi Jean Baptiste (Mother) [phone] (Home Phone) Has the patient been added to capacity board/tracking sheet? ([facility] only) Velia without limitations Estimated Discharge Date (KUNAL): 03/30 If discharge needs change, please reach out to liaison assigned on treatment team as hub is not notified of new consults once team is following. Thank you. [facility] 03-30-2023 Consult note Associated Order (s): IP CONSULT TO [facility] agency: Accepted or Pending Name of agency: (if [facility], include region) [facility] can accept. [facility] created for the following services: [or waiting for ____ (i.e wound care)] Yes, SN/PT/OT/aide Verify the demographics (residential address) [address] [place] [address] What is the primary number to reach you? [phone] Who is your family physician/primary care physician? PCP [facility] [phone] Message left with office Do you have a caregiver and/or teachable caregiver (list relationship, name & phone #)? Shi Jean Baptiste (Mother) [phone] (Home Phone) Has the patient been added [...] Current Admission?: Yes Post-Acute Patient Choice 1: [facility] Post-Acute Patient Choice 2: no preference HME: [...] need SN for medication management, PT/OT, and RESTAURANT HOURLY MANAGER. After review of options, patient chose [facility] [...] this time. CM called and spoke with [facility] Air Brake Adjuster, Ashley [phone], she confirmed that patient has established with PCP Sheng Hebert and has a follow up appointment tomorrow. NADIA also reviewed patient needs of transport wheelchair and front-wheeled walker. Advised this CM working to see if can obtain the transport wheelchair for patient prior to discharge. Ashley stated she will work on trying to get her a front-wheeled walker. Per SW notes in January, a Waiver application was sent to [facility], but patient stated that no one ever contacted her regarding the application. CHW consulted to submit a new Waiver application, as patient could benefit from long-term RESTAURANT HOURLY MANAGER, medication management, and incontinence supplies. CHW Ravi [...] chronic pain:: Yes documented in this encounter [facility] 03-30-2023 Note Formatting of this n ote might be different from the original. [id number] ENCOUNTER FOR HOME MEDICAL EQUIPMENT PATIENT: Addie Jean Baptiste : 1975 Statement of Care: I certify that Addie Jean Baptiste is under my care and that I had a ifjs-ll-ybka encounter with this patient today to evaluate and discuss the need for home medical equipment. I certify that based on the findings of this evaluation, which included but was not limited to the govy-kk-anra requirements, the following home medical equipment is medically necessary: Transport wheelchair for the treatment of mobility limitations to enable participation in mobility-related activities of daily living (MRADL) in the home. Based on the current evaluation, patient can safely use prescribed equipment to perform mobility-related activities of daily living (MRADL) in the home.. Signed by: Harshad Rizzo MD on 03/30/2023 [facility] 03-30-2023 Consult note Associated Order (s): IP CONSULT TO CARE MANAGEMENT Care Management Consult Note Date: 03/30/2023 Time: 11:37 AM Patient Name: Addie Jean Baptiste Date of : 1975 Reason for Consult: Discharge Needs Discharge Plan: D/C Disposition: Home Health Care Services Related to Current Admission?: Yes Post-Acute Patient Choice 1: [facility] Post-Acute Patient Choice 2: no preference HME: [...] need SN for medication management, PT/OT, and RESTAURANT HOURLY MANAGER. After review of options, patient chose [facility] [...] this time. CM called and spoke with [facility] Air Brake Adjuster, Ashley [phone], she confirmed that patient has established with PCP Sheng Hebert and has a follow up appointment tomorrow. NADIA also reviewed patient needs of transport wheelchair and front-wheeled walker. Advised this CM working to see if can obtain the transport wheelchair for patient prior to discharge. Ashley stated she will work on trying to get her a front-wheeled walker. Per SW notes in January, a Waiver application was sent to [facility], but patient stated that no one ever contacted her regarding the application. CHW consulted to submit a new Waiver application, as patient could benefit from long-term RESTAURANT HOURLY MANAGER, medication management, and incontinence supplies. CHW Ravi [...] routine activities due to chronic pain:: Yes [facility] 03-29-2023 Note Formatting of this n ote [...] of comfort function goal Outcome: Partially Met [facility] 03-29-2023 History and physical note [facility] [place] [facility] Patient Name: Addie Jean Baptiste : 1975 MR #: [id number] Admit Date: 03/29/2023 Physicians: System, Provider Not In (Family); No ref. provider found (Referring) Addie Jean Baptiste is a 47 y.o. female patient of System, Provider Not In with history of T2DM, seizure disorder, HTN, and chronic back pain presented to [facility] with chest pain. Atypical chest pain [...] HTN, and chronic back pain presented to [facility] with chest pain. Pt states that [...] Hennessy MD - 03/29/2023 2:56 PM EST [facility] [place] ADDENDUM I saw and examined the [...] Diabetic peripheral neuropathy Seizure disorder Morbid obesity [facility] 03-29-2023 History and physical note [facility] [place]ICAL -- [facility] Patient Name: Addie Jean Baptiste : 1975 MR #: [id number] Admit Date: 03/29/2023 Physicians: System, Provider Not In (Family); No ref. provider found (Referring) Addie Jean Baptiste is a 47 y.o. female patient of System, Provider Not In with history of T2DM, seizure disorder, HTN, and chronic back pain presented to [facility] with chest pain. Atypical chest pain [...] HTN, and chronic back pain presented to [facility] with chest pain. Pt states that [...] Hennessy MD - 03/29/2023 2:56 PM EST [facility] [place] ADDENDUM I saw and examined the [...] disorder Morbid obesity documented in this encounter [facility] 03-29-2023 Emergency department Note Called lab for HFP, and lipase- not troponin at this time. [facility] 03-29-2023 Emergency department Note Hourly rounding completed. Comfort measures and needs addressed. Pt resting on cot (notable chest rise and fall) with call light in reach. Pt updated on plan of care. [facility] 03-29-2023 Emergency department Note Called lab for [...] arrival: Comments: 26 documented in this encounter [facility] 03-29-2023 Emergency department Note Hourly rounding completed. Comfort measures and needs addressed. Pt resting on cot (notable chest rise and fall) with call light in reach. Pt updated on plan of care. [facility] 03-29-2023 Emergency department Note Called lab for blood work again [facility] 03-29-2023 Emergency department Note Lab called for blood draw [facility] 03-29-2023 Emergency department Note Pt states I have right sided sharp pain on the side of my stomach also. [facility] 03-29-2023 Emergency department Triage note Per EMS She has had chest pain for 4 days. We have Asprin and nitroglycerin in route. She is paced on the 4 lead. Pt states mid sternal chest pain 01/01 [facility] 03-29-2023 Emergency department Note Bed: 17 Expected date: Expected time: Means of arrival: Comments: 26 [facility] 02-20-2023 Hospital course Narrative [facility] [place] Addie Jean Baptiste Admitted: 02/17/2023 Discharge Date: 02/20/23 Clinical Summary Addie Jean Baptiste is a 47 y.o. female patient of System, Provider Not In with history of diabetes, hypertension, hypothyroidism, COPD, and GERD, now presented to [facility] with chest pain. Assessment and Plan [...] 02/20/23, 12:04 PM documented in this encounter [facility] 02-20-2023 Note Formatting of this n ote [...] (please specify) Unable to determine Thank you SNEHA Shipley RNN Clinical Circuit Tester [phone] After business hours you may contact Shannen Manley at [phone] (Weekdays until 10 PM and weekends 8 AM -10 PM) [facility] 02-20-2023 Miscellaneous Notes Noted monitoring of Cr. [...] (please specify) Unable to determine Thank you SNEHA Shipley RNN Clinical Circuit Tester [phone] After business hours you may contact Shannen Manley at [phone] (Weekdays until 10 PM and weekends 8 AM -10 PM) [facility] Utilization Review Notes EMERGENCY TEMPLATE HISTORY OF PRESENT ILLNESS: 47 y.o. female patient of System, Provider Not In with history of diabetes, hypertension, hypothyroidism, COPD, and GERD, now presented to [facility] with chest pain. Beginning around 4 [...] Outcome: Partially Met documented in this encounter [facility] 02-20-2023 Consult note Associated Order (s): IP CONSULT TO POCKET MACHINE OPERATOR Attempted to meet with patient for Diabetes Education this am. She refused stating, I want no part of it . Patient also refused education at her December admission. [facility] 02-20-2023 Consult note Associated Order (s): IP CONSULT TO POCKET MACHINE OPERATOR Attempted to meet with patient for Diabetes [...] preference Discharging Transportation Plan: Discharge Plan Status: RACQUEL f2f with pt. Pt reported her daughter lives with her. Pt reported her daughter is 17. Pt stated that they are currently staying in a motel in [place]. Pt asking for help with housing. SW [...] she is also wanting to get an Wire Tinner here in [place] as hers is still in [place]. Pt is agreeable to Waiver referral. SW also suggested looking into [employer] Sleeping rooms, or other affordable housing options. She did report she is able to make calls to places. Agreeable to housing help info on S. SW faxed Waiver Referral. SW placed housing options on [facility] Community Resource Packet provided to pt. SW placed ambulatory referral to Endocrinology. Assessment and Background Information: Living Arrangements: Homeless Support Systems: Family members Assistance Needed: denies Type of Residence: (Hotel) Prior to Admission Home Care Services: No documented in this encounter [facility] 02-19-2023 Note Formatting of this n ote might be different from the original. [facility] Utilization Review Notes EMERGENCY TEMPLATE HISTORY OF PRESENT ILLNESS: 47 y.o. female patient of System, Provider Not In with history of diabetes, hypertension, hypothyroidism, COPD, and GERD, now presented to [facility] with chest pain. Beginning around 4 [...] NS IV AT 100 ML/HR DISPO: TBD [facility] 02-19-2023 History of Present illness Narrative [facility] [place] Addie Jean Baptiste is a 47 y.o. female patient of System, Provider Not In with history of diabetes, hypertension, hypothyroidism, COPD, and GERD, now presented to [facility] with chest pain. Assessment and Plan [...] not been spiked, are well within the remote recruiter expiration date and have been stored at room temperature (<28 days). Continue with insulin regimen as written. Please call pharmacy with any questions. Pharmacist: Dannielle Barrett Date: 02/18/2023 Contact Information: [phone] documented in this encounter [facility] 02-19-2023 Consult note Formatting of th is note might be different from the original. Attempted to meet with patient this am for Diabetes Education. Per primary nurse, the patient is not clinically appropriate at this time. She is drowsy and hard to arouse. Will check back at a later time. [facility] 02-19-2023 Note Formatting of this n ote [...] primarily medication induced, low suspicion for infection. [facility] Work Phone: 02-18-2023 Hospital Discharge instructions Jalyn aYnes LISW - 02/18/2023 3:30 PM EDT ADDITIONAL HOUSING INFORMATION FOR AFFORDABLE HOUSING OPTIONS: [facility] Mobile Home Nunes [facility] [address] [facility] [address] [phone] 1-3 bedroom metro accepted [place] [address] Carriage Arms [address] [phone] [phone] Community View [address] [phone] [facility] [place] [address] [facility] [address] [phone] 1-3 bedroom subsidized housing [place] [address] [facility] E [phone] Flying[place] LoPrelert [address] [phone] [place] [address] [facility] [address] [facility] [address] [phone] [facility] [address] [phone] [place] 372 [facility] [address] [phone] [place] [address] [phone] [facility] [address] [phone] [facility] Estkaiser hayward [address] [phone] [address] 1480 [facility] [phone] 1 & 2 bedrooms metro accepted [place] [address] [facility] Corporation[facility]hi [address] [phone] 1 & 2 bedrooms metro accepted Marroquin's [address] [phone] [facility] Properties [address] [phone] [facility] 2 [facility] [phone] Sheng [address] [phone] 1-3 bedroom metro accepted Shelter [facility] [address] [facility] [address] [phone] 1-3 bedroom metro accepted [place] [address] [phone] [address] [phone] [facility] [address] [phone] [place] [address] [phone] 1-3 bedroom available [facility] [address] [phone] 1-3 bedroom metro accepted [address] [place] [address] [phone] [place] [address] [phone] [address] [phone] Duplexs and Houses [address] [phone] Johnny Wall [phone] [facility] Properties [address] [phone] Karen Stauffer [phone] [facility] Properties [address] Zonia Maldonado [phone] [employer] [address] [phone] Maximino Portillo [phone] [facility] [facility] [address] [place] [phone] Alpha and Leeper Properties [phone] [facility] 518 [facility] Edilberto Green [phone] Nikos Thomas [phone] [facility] [phone] Robert Duran [phone] NIESHA Calhoun [phone] [facility] 117 [address] [facility] 12 Gui Higuera [phone] We Rent Velia (Chris Matamoros) [phone] Income Based Housing Javier Mello [email or web address] [email or web address] omes [address] Apartments (Section 8) Bill Your [phone] [facility] Apartments (Section 8) Sleeping Rooms [facility] (Section 8) [employer] Properties [phone] BrownStone Terece ( must be senior or disabled) [place] Sleeping Rooms [phone] Velia Towers (must be senior or disabled) [place] Sleeping Rooms - [phone] [address] Square ( must be senior or disabled) Caryn Mortonpaw - [phone] Maximino Portillo - [phone] Verdiem Groups Websites to find Rentals https://www.Top Rops.Stereobot/groups/25 9502768717080/ www.rent.Stereobot https://www.Top Rops.com/groups/21 8621002966169 www.apartments.com https://www.Top Rops.com/groups/13 99865219111515/ www.rentals.com https://www.Top Rops.com/groups/55 5065402352953/ www.OSR Open Systems Resources/hcidta-lmlshv-sd/re ntals/ [facility] FOOD ASSISTANCE [place] Home [phone] By appointment only Thursday-Thursday between 10am and 3pm ([address] [facility]. Must provide photo ID and proof of address) [facility] [phone] Tu, Wed, Fri, Sat 10a to 12p. 3p to 5p. ([address], Vel[place]. Photo ID and proof of address required) [facility] [phone] 3rd Sat of each month, 10a to 12p ([address] [facility]. photo ID and proof of address required) Life (LINK) [phone] 4th Tues of each month. Call on Thursday between 10a and 2p to schedule ([address]) Chuy/German Community Pantry [phone] Thursday 2pm-6pm Thursday Produce 2pm to 4pm [facility] [phone] ([address] [facility]. Call to inquire) [facility] [phone] Monthly giveaway, call for info ([address] [facility], Velia) Shining Light [facility] [phone] Wednesdays 830am to 10am bread giveaway only ([address] [facility] Velia) Breaking Bread Food Pantry [phone] 3p to 5p ([address], Vel[place]. Photo ID and proof of address required) [facility] [facility] [phone] call for info ([address] [facility]) Helping Hands Helping Others Food Pantry [phone] Mondays and Thu 4p to 7p, soup kitchen Tuesdays 530p to 6p ([address] [place] [facility]. Photo ID and proof of address required) [facility] Food Pantry [phone] call for info ([address] Velia) [facility] Commodity Supplemental Food Program Contact Fatimah at [phone] Food box distribution for income eligible [facility] seniors 60+ ([address]) The following attachments cannot be sent through Care Everywhere.Chest Pain (Cape Verdean)documented in this encounter [facility] 02-18-2023 Consult note Associated Order (s): IP [...] are currently staying in a motel in [place]. Pt asking for help with housing. SW [...] she is also wanting to get an Wire Tinner here in [place] as hers is still in [place]. Pt is agreeable to Waiver referral. SW also suggested looking into [employer] Sleeping rooms, or other affordable housing options. She did report she is able to make calls to places. Agreeable to housing help info on S. SW faxed Waiver Referral. SW placed housing options on [facility] Community Resource Packet provided to pt. SW placed ambulatory referral to Endocrinology. Assessment and Background Information: Living Arrangements: Homeless Support Systems: Family members Assistance Needed: denies Type of Residence: (Hot) Prior to Admission Home Care Services: No ocking [facility] 02-18-2023 Note Formatting of this n [...] echo Rest of management as per H&P [facility] 02-18-2023 Note Formatting of this n ote [...] Goal: Absence of falls Outcome: Partially Met [facility] 02-18-2023 Physician Emergency department Note Associated Order(s): ECG 12 Lead Images from the original note were not included. ED PROVIDER NOTE [facility] EM[facility]GENCY [facility] NAME: Addie Jean Baptiste AGE: 47 y.o. : 1975 VISIT DATE: 02/17/2023 CSN: [id number] PCP: System, Provider Not In Clinical Impression: [...] plan, .I reviewed the patient's case with [facility] [place] whom accepted the patient for further [...] -- 91 18 98 % -- -- 02/17/238 -- -- -- -- 16 -- -- [...] Yellow Clarity, Urine Hazy (A) Clear Specific [place] 1.025 1.005 - 1.025 pH, Urine 5.0 [...] Ladan Gonzalez Karen Michelle, DO 02/18/23 0040 [facility] 02-18-2023 Emergency department Note Associated Order(s): ECG 12 Lead Images from the original note were not included. ED PROVIDER NOTE [facility] EM[facility]GENCY [facility] NAME: Addie Jean Baptiste AGE: 47 y.o. : 1975 VISIT DATE: 02/17/2023 [facility]: [id number] PCP: System, Provider Not In Clinical Impression: 1. Chest pain, unspecified type 2. Flank pain ED Disposition ED Disposition Hospitalize Condition -- Comment Recommended Level of Care: Med Surg Phone call required?: No Follow-up Information Follow-up information has not been specified. Contact information for after-discharge care Follow-up information has not been specified. Medical Decision Making I reviewed prior [facility] records, patient is agreeable to labs and [...] plan, .I reviewed the patient's case with [facility] [place] whom accepted the patient for further [...] Yellow Clarity, Urine Hazy (A) Clear Specific [place] 1.025 1.005 - 1.025 pH, Urine 5.0 [...] findings as above. DEEPA/abhishek Workstation ID: [id number] CT Head Or Brain [...] back. Patient arrived from home via [facility] EMS report Patient has been complaining of some chest tightness and SOB since around 4pm. Patient indicated that she feels that her chest is tight and the room is spinning. Patient had normal vitals in route. Asprin and nitroglycerin given in route. See EMS report Bed: 10 Expected date: Expected time: Means of arrival: Comments: 26- CP documented in this encounter [facility] 02-18-2023 History and physical note [facility] [place]ICAL -- [facility] Patient Name: Addie Jean Baptiste : 1975 MR #: [id number] Admit Date: 02/17/2023 Physicians: System, Provider Not In (Family); No ref. provider found (Referring) Addie Jean Baptiste is a 47 y.o. female patient of System, Provider Not In with history of diabetes, hypertension, hypothyroidism, COPD, and GERD, now presented to [facility] with chest pain. Chest pain Admit [...] hypothyroidism, COPD, and GERD, now presented to [facility] with chest pain. Beginning around 4 [...] normal coloration Psych: normal mood and affect [facility] 02-18-2023 History and physical note [facility] [place]ICAL -- [facility] Patient Name: Addie Jean Baptiste : 1975 MR #: [id number] Admit Date: 02/17/2023 Physicians: System, Provider Not In (Family); No ref. provider found (Referring) Addie Jean Baptiste is a 47 y.o. female patient of System, Provider Not In with history of diabetes, hypertension, hypothyroidism, COPD, and GERD, now presented to [facility] with chest pain. Chest pain Admit [...] hypothyroidism, COPD, and GERD, now presented to [facility] with chest pain. Beginning around 4 [...] mood and affect documented in this encounter [facility] 02-17-2023 Emergency department Note Patient is complaining of chest pain all over, a headache, and right sided abdominal pain that radiates to her back. [facility] 02-17-2023 Emergency department Note Patient arrived from home via [facility] EMS report Patient has been complaining of some chest tightness and SOB since around 4pm. Patient indicated that she feels that her chest is tight and the room is spinning. Patient had normal vitals in route. Asprin and nitroglycerin given in route. See EMS report [facility] 02-17-2023 Emergency department Note Bed: 10 Expected date: Expected time: Means of arrival: Comments: 26- CP [facility] 02-09-2023 Instructions Josué Christianson, - 02/09/2023 3:52 [...] repeat 10 to 20 times. Developed by [employer]. Published by [facility]. 2009 [facility] and/or its affiliates. All Rights Reserved. documented in this encounter [facility] 02-09-2023 History of Present illness Narrative CC: Knee pain HPI HISTORY: Addie Jean Baptiste who is a 47 y.o. female that presents for evaluation of a chief complaint: Chief Complaint Patient presents with Right Knee - Pain NEW PATIENT RT KNEE PAIN, fell 01/19/23 went to [facility] [place] No [...] at pharmacy - uses [facility] [place] . 06/01/20 Manuel Cardona MD fluticasone-salmeterol (ADVAIR [...] skin nightly . 01/14/23 02/13/23 Rush Hernadez V., BEATRIZ levETIRAcetam (KEPPRA) 1000 MG tablet Take 1 [...] normal Alignment: normal Other FractureNegative BMP Order: [id number] Status: Final result Visible to patient: No [...] mellitus with other specified complication, unspecified whether terminal manager insulin use (HCC) We a long discussion [...] 40 MG tablet documented in this encounter [facility] 10-07-2022 Note EXAMINATION: XA L-SP INE MYELOGRAM [...] the critical portions of the procedure. [facility] 10-07-2022 Hospital Discharge instructions Nikko Kendrick [...] see your Primary Care Physician (or call [phone] if you do not have a PCP) for follow up in the next 5-7 days. TRANSPORTATION TO [facility] FOR AN APPOINTMENT: PLEASE CALL [phone]. Extremity Injury Instructions: Return to the ED [...] sent through Care Everywhere.Urinary Incontinence Discharge Instructions (C[place] Verdean)Diabetic Neuropathy (Cape Verdean)documented in this encounter [facility] 10-07-2022 Note POST-PROCEDURE NOTE Procedure: Myelogram Pre-operative [...] the procedure. Sonia Beach MD Radiology [facility] 10-07-2022 Note Pre-Procedure Note HISTORY: Procedure: [...] Directives (Living will, health care power of civil attorney): none Patient Recent Code Status: No Order Code Status For This Procedure: Full Code Sonia Beach MD Radiology [facility] 10-06-2022 Evaluation + Plan note Extrac [...] NM Myocardial Spect Rest/Stress 1 Day 12/16/21 [facility]04-24-2023 Hospital Discharge instructions Patient Education 09/15/2022 12:14:10 [...] cut, a sore, or an invasive medical attendant, it can cause a serious infection. What are the causes? This condition is caused by staph bacteria. Illness may develop after exposure to the bacteria through: Ziyw-us-ljqs contact with someone who is infected with MRSA. Touching surfaces that have the bacteria on them. Having a procedure or using equipment that allows MRSA to enter the body. Having MRSA that lives on your skin and then enters your body through: ?A cut or scratch. ?A surgery or procedure. ?The use of a medical attendant. Contact with the bacteria may occur: During a stay in a hospital, rehabilitation facility, prison, or other health care facility (health care associated MRSA). In daily activities where there is close contact with others, such as sports, child development specialist centers, or at home (community-associated MRSA). What [...] system (immune system). Play sports that involve oqyq-vc-sizj contact. Live in a crowded place, like [...] Follow these instructions at home: Medicines Take nhtv-rpz-vupapad and prescription medicines only as told by [...] are not available, use an alcohol-based hand exam proctor. Avoid close contact with those around you [...] provider. Document Revised: 07/28/2019 Document Reviewed: 07/29/2019 [employer] Patient Education 2022 [employer]. 09/15/2022 12:14:10 Cellulitis, Adult Cellulitis, Adult Cellulitis [...] Follow these instructions at home: Medicines Take gsdd-dcu-vyuxwej and prescription medicines only as told by [...] such as antibiotic medicines or antihistamines. Take ktiw-wmm-gilikil and prescription medicines only as told by [...] provider. Document Revised: 02/20/2022 Document Reviewed: 02/20/2022 [employer] Patient Education 2022 [employer]. Follow Up Care 09/12/2022 13:40:51 With:LAURENT FRANCO Address: [address], [place] [address]- Business (1) When: Unknown Comments:Appointment line is out of service. Please contact your PCP for an appointment. Thank you! With:Soto Box Address: [facility] [address] [place] [address]- 0 Business (1) When:3 to 5 days Comments:Call for followup appointment [facility]04-24-2023 Evaluation + Plan noteExtracted from: Title:Discharge Note [...] Oral, Daily ergocalciferol 50,000 intl units Cap, 07125 International_Unit= 1 cap(s), Oral, Thursday hydrOXYzine pamoate [...] Soto Box Within 3 to 5 days [facility] [address] [facility] [place] [address]- 0 Business (1) Additional Instructions: LAURENT FRANCO In 0 days [address] [place] [address]- Business (1) Additional Instructions: MRSA Infection, Diagnosis, Adult Cellulitis, Adult Extracted from: Title:APSO Note Author:Stone HICKEY Date:09/14/22 PLAN 1. Cellulitis (L03.90: Cellulitis, unspecified) Patiently recently admitted to [facility] and underwent an incision and drainage [...] shoe follow-up next week Her cultures at [facility] was positive for MRSA Blood culture [...] artery disease) (I25.10: Atherosclerotic heart disease of [place] coronary artery without angina pectoris) history of VT with AICD placed per Dr Noble in [place]. Statin, aspirin, BB 4. HTN (hypertension) (I10: [...] follow-up next week. Extracted from: Title:APSO Note Author:AMELIE MCKAYKRYSTLEStone Date:09/13/22 PLAN 1. Cellulitis (L03.90: Cellulitis, unspecified) Patiently recently admitted to [facility] and underwent an incision and drainage [...] pending. Consult podiatry pending Her cultures at [facility] was positive for MRSA Blood culture [...] artery disease) (I25.10: Atherosclerotic heart disease of [place] coronary artery without angina pectoris) history of VT with AICD placed per Dr Noble in [place]. Statin, aspirin, BB 4. HTN (hypertension) (I10: [...] Title:Admission H & P Author:Evelyn STEVENS, Ahmad Date:09/12/22 Cellulitis -Will r/o osteo w/MRI -Antibiotics [...] Consult to Infectious Disease Physician Consult to Manager Of Clinical Continuous Pulse Oximetry Diabetic/Calorie Control Diet Elevate Head of Bed Elevate Head of Bed Flutter Valve Hypoglycemia Protocol Responsive Patient Hypoglycemia Protocol Unresponsive Patient Incentive Spirometry MRI Foot w/o Contrast Left NPO Diet Place in Status Resuscitation Status - Full Routine Capillary Glucose POC Vital Signs Weight Extracted from: Title:ED Note Author:Charli Preston DUMONT Date:08/24 06/16 Osteomyelitis (M86.9: Osteom yelitis, unspecified) [...] NM Myocardial Spect Rest/Stress 1 Day 12/16/21 [facility]03-31-2023 Discharge summary Author Jeana Martini [facility] August 22, 2022 1:35pm Note Date/Time August 22, 2022 1:[address] [facility] [address] [place] [address] Discharge Summary Signed Patient: Addie Jean Baptiste MR#: [id number] : 1975 Acct:[id number] Age/Sex: 47 / F Adm Date: 3 Loc: Room: [address] [place] [address]: Jeana Martini MD Copies to: Laurent Franco SECRETARYKandi Martini MD~ Providers Date of Discharge: 08/22/22 [...] on intravenous antibiotic Patient was seen by white mixing operator who recommended and performed bedside incision [...] place, time and person, morbidly obese HEENT: [place] conjunctiva and NL buccal mucosa Neck: Supple, [...] ask your primary care provider to obtain [facility] records entirely to follow up on all of the abnormal physical, laboratory, and imaging findings that I have not addressed. Please follow-up with Dr. Romero to evaluate your circulation Please return back to the emergency room or seek medical attention if your symptoms worsen or return. Discharging you from [facility] does not mean that your medical care [...] to 2 weeks. Please call for appointment.) [facility] ServAlissa [Physician] - 08/25/22 10:15 am (Follow-up with your Primary Care Provider, call office to reschedule if needed. ) Documented By: Jeana Martini MD 08/22/22 1325 Signed By: <Electronically signed by Jeana Martini MD> 08/22/22 1335 [facility] Work Phone: 1(117) 424-524403-31-2023 Hospital Discharge instructionsAmbulatory Orders* Initiate Home Health Time Frame: 08/22/22, Location: Determined By Patient Additional Instructions I may not have addressed or treated all of your medical illnesses or the abnormal blood work or imaging studies during this hospitalization. Please ask your primary care provider to obtain [facility] records entirely to follow up on all of the abnormal physical, laboratory, and imaging findings that I have not addressed. Please follow-up with Dr. Romero to evaluate your circulation Please return back to the emergency room or seek medical attention if your symptoms worsen or return. Discharging you from [facility] does not mean that your medical care [...] Assist with medication management and provide medication [facility] Work Phone: 1(828) 122-576803-31-2023 Progress note Author Shameka Romero [facility] August 22, 2022 9:56am Note Date/Time August 22, 2022 9:[address] [facility] [address] [place] [address] Vascular Surgery Progress Note Signed Patient: Addie Jean Baptiste MR#: [id number] : 1975 Acct:[id number] Age/Sex: 47 / F Adm Date: 3 Loc: 3T Room: [address] [place] [address] Type: ADM IN Attending Dr: Jeana Mratini MD Copies to: ~ Date of Service: [...] Status: Acute Documented By: Shameka Romero MD 08/22/2254 Signed By: <Electronically signed by Shameka Romero MD> 08/22/22 0956 [facility] Work Phone: [phone] 659-822403-31-2023 Progress note Author Jeana Martini [facility] August 22, 2022 9:54am Note Date/Time August 22, 2022 9:[address] [facility] [address] [place] [address] Hospitalist Progress Note Signed Patient: Addie Jean Baptiste MR#: [id number] : 1975 Acct:[id number] Age/Sex: 47 / F Adm Date: 3 Loc: Room: [address] [place] [address] Type: ADM IN Attending Dr: Jeana Martini [...] place, time and person, morbidly obese HEENT: [place] conjunctiva and NL buccal mucosa Neck: Supple, [...] subcu injection. Documented By: Jeana Martini MD 08/22/22 0953 Signed By: <Electronically signed by Jeana Martini MD> 08/22/22 0954 [facility] Work Phone: 1(283) 672-625803-30-2023 Consult note Author Shameka Romero [facility] August 21, 2022 4:02pm Note Date/Time August 21, 2022 4:[address] [facility] [address] [place] [address] Vascular Surgery Consult Note Signed Patient: Addie Jean Baptiste MR#: [id number] : 1975 Acct:[id number] Age/Sex: 47 / F Adm Date: 3 Loc: Room: [address] [place] [address] Type: ADM IN Attending Dr: Jeana Martini [...] date: 08/21/2022 Requesting Physician: Jeana Martini MD [facility] Vaccinated for COVID-19?: Yes Medical History [...] % (Auto) 69.4 Lymph % (Auto) 20.6 [place] % (Auto) 7.4 Eos % (Auto) 1.8 Baso % (Auto) 0.8 Nucleat RBC Rel Count 0.0 Neut # (Auto) 5.7 Lymph # (Auto) 1.7 [place] # (Auto) 0.6 Eos # (Auto) 0.2 [...] MPV Neut % (Auto) Lymph % (Auto) [place] % (Auto) Eos % (Auto) Baso % (Auto) Nucleat RBC Rel Count Neut # (Auto) Lymph # (Auto) [place] # (Auto) Eos # (Auto) Baso # [...] <Electronically signed by Shameka Romero MD> 08/21/22 1605 [facility] Work Phone: 1(193) 916-840003-30-2023 Progress note Author Lawrence Kim [facility] August 21, 2022 11:22am Note Date/Time August 21, 2022 11: 22am [facility] [address] [place] [address] Infect. Disease Progress Note Signed Patient: Addie Jean Baptiste MR#: [id number] : 1975 Acct:[id number] Age/Sex: 47 / F Adm Date: 3 Loc: Room: [address] [place] [address] Type: ADM IN Attending Dr: Jeana Martini [...] 5 Mg Tablet) 5 mg PO DAILY [facility] Stop: 08/20/23 09:39 Last Admin: [...] Mg/0.4 Ml Syringe) 40 mg SUBCUT DAILY@1000 [facility] Stop: 08/20/23 09:59 Last Admin: 08/21/22 09:01 Dose: 40 mg Ergocalciferol (Ergocalciferol 1,250 Mcg (50,000 Units) Capsule) 1,250 mcg PO Q7D [facility] Stop: 08/20/23 09:44 Last Admin: 08/20/22 14:44 Dose: Not Given Furosemide (Furosemide 20 Mg Tablet) 20 mg PO DAILY.8A [facility] Stop: 08/20/23 07:59 Last Admin: [...] 300 Units/3 Ml Insuln.Pen) 0 units SUBCUT TID.WM.HS [facility]; Protocol Stop: 08/20/23 11:59 Last Admin: 08/21/22 [...] DAILY [facility] Stop: 08/20/23 08:59 Last Admin: 08/21/22 09:01 Dose: 40 mg Metformin HCl (Metformin 500 Mg Tablet) 1,000 mg PO BID.WITH.MEALS [facility] Stop: 08/20/23 07:59 Last Admin: 08/21/22 09:00 Dose: 1,000 mg Pantoprazole Sodium (Pantoprazole 40 Mg Tablet.Dr) 40 mg PO DAILY [facility] Stop: 08/21/23 08:59 Last Admin: 08/21/22 09:01 [...] 250 Mg Capsule) 250 mg PO BID.WITH.MEALS [facility] Stop: 08/20/23 07:59 Last Admin: [...] signed by MD Lawrence Kim> 08/21/22 1122 [facility] Work Phone: 1(226) 511-375503-30-2023 Progress note Author Jeana Martini [facility] August 21, 2022 10:10am Note Date/Time August 21, 2022 10: 10am [facility] [address] [place] [address] Hospitalist Progress Note Signed Patient: Addie Jean Baptiste MR#: [id number] : 1975 Acct:[id number] Age/Sex: 47 / F Adm Date: 3 Loc: Room: [address] [place] [address] Type: ADM IN Attending Dr: Jeana Martini [...] place, time and person, morbidly obese HEENT: [place] conjunctiva and NL buccal mucosa Neck: Supple, [...] Insuln.Pen SUBCUT 08/20/23 11:59 Not Given TID.WM.HS [facility] Protocol Levetiracetam 750 mg 08/20/22 09:00 08/21/22 [...] signed by Jeana Martini MD> 08/21/22 1010 [facility] Work Phone: 1(488) 739-136803-29-2023 Consult note Author Swapnil Castillo [facility] August 20, 2022 1:14pm Note Date/Time August 20, 2022 1:[address] [facility] [address] [place] [address] Podiatry Consult Note Signed Patient: Addie Jean Baptiste MR#: [id number] : 1975 Acct:[id number] Age/Sex: 47 / F Adm Date: 3 Loc: Room: [address] [place] [address] Type: ADM IN Attending Dr: Jeana Martini [...] of pacemaker and TIA MS:Denies calf pains [facility] Attestation Statement: The following information was [...] By: <Electronically signed by LUPE Castillo> 08/20/22 1319 [facility] Work Phone: 1(185) 657-486803-29-2023 Consult note Author Lawrence Kim [facility] August 20, 2022 10:27am Note Date/Time August 20, 2022 10: 26am [facility] [address] [place] [address] Infect. Disease Consult Note Signed Patient: Addie Jean Baptiste MR#: [id number] : 1975 Acct:[id number] Age/Sex: 47 / F Adm Date: 3 Loc: 3T Room: [address] [place] [address] Type: ADM INOo Attending Dr: Jeana Martini [...] me she was hospitalized in July at [facility] for 4 days for this. She apparently [...] negative unless noted below or in HPI [facility] Attestation Statement: The following information was validated [...] DAILY@1000 [facility] Stop: 08/20/23 09:59 Last Admin: 08/20/22 09:29 Dose: 40 mg Ergocalciferol (Ergocalciferol 1,250 Mcg (50,000 Units) Capsule) 1,250 mcg PO Q7D [facility] Stop: 08/20/23 09:44 Furosemide (Furosemide 20 Mg Tablet) 20 mg PO DAILY.8A [facility] Stop: 08/20/23 07:59 Last Admin: 08/20/22 09:26 Dose: 20 mg Glucose (Dextrose 40% Gel 15 Gm Tube) 0 gm PO PRN PRN PRN Reason: Hypoglycemia Stop: 08/20/23 03:40 Ampicillin Sodium/Sulbactam Sodium (Unasyn) 3 gm in 100 mls @ 200 mls/hr IV Q6HSCH Last Admin: 08/20/22 09:27 Dose: 200 mls/hr Levetiracetam (Levetiracetam 250 Mg Tablet) 750 mg PO BID [facility] Stop: 08/20/23 08:59 Last Admin: 08/20/22 08:24 Dose: 750 mg Levothyroxine Sodium (Levothyroxine 75 Mcg Tablet) 75 mcg PO DAILY@0630 [facility] Stop: 08/20/23 06:29 Last Admin: 08/20/22 06:15 Dose: 75 mcg Lisinopril (Lisinopril 40 Mg Tablet) 40 mg PO DAILY [facility] Stop: 08/20/23 08:59 Last Admin: 08/20/22 08:25 Dose: 40 mg Metformin HCl (Metformin 500 Mg Tablet) 1,000 mg PO BID.WITH.MEALS [facility] Stop: 08/20/23 07:59 Last Admin: 08/20/22 08:25 Dose: 1,000 mg Pantoprazole Sodium (Pantoprazole 40 Mg Tablet.Dr) 40 mg PO DAILY [facility] Stop: 08/21/23 08:59 Pregabalin (Pregabalin 150 Mg Capsule) [address] [facility] Stop: 02/16/23 03:44 Last Admin: 08/20/22 04:09 Dose: 150 mg Quetiapine Fumarate (Quetiapine Fumarate 200 Mg Tablet) [address] [facility] Stop: 08/20/23 03:59 Last Admin: 08/20/22 04:09 Dose: 800 mg Saccharomyces Boulardii (Saccharomyces Boulardii 250 Mg Capsule) 250 mg PO BID.WITH.MEALS [facility] Stop: 08/20/23 07:59 Last Admin: [...] % (Auto) 64.7 Lymph % (Auto) 27.3 [place] % (Auto) 6.0 Eos % (Auto) 1.3 Baso % (Auto) 0.7 Nucleat RBC Rel Count 0.0 Neut # (Auto) 5.5 Lymph # (Auto) 2.3 [place] # (Auto) 0.5 Eos # (Auto) 0.1 [...] Color Urine Appearance Urine pH Ur Specific [place] Urine Protein Urine Glucose (UA) Urine Ketones [...] MPV Neut % (Auto) Lymph % (Auto) [place] % (Auto) Eos % (Auto) Baso % (Auto) Nucleat RBC Rel Count Neut # (Auto) Lymph # (Auto) [place] # (Auto) Eos # (Auto) Baso # [...] Appearance Clear Urine pH 6.5 Ur Specific [place] 1.017 Urine Protein 100 H Urine Glucose [...] % (Auto) 68.9 Lymph % (Auto) 22.6 [place] % (Auto) 6.9 Eos % (Auto) 1.1 Baso % (Auto) 0.5 Nucleat RBC Rel Count 0.2 Neut # (Auto) 6.2 Lymph # (Auto) 2.0 [place] # (Auto) 0.6 Eos # (Auto) 0.1 [...] Color Urine Appearance Urine pH Ur Specific [place] Urine Protein Urine Glucose (UA) Urine Ketones [...] MPV Neut % (Auto) Lymph % (Auto) [place] % (Auto) Eos % (Auto) Baso % (Auto) Nucleat RBC Rel Count Neut # (Auto) Lymph # (Auto) [place] # (Auto) Eos # (Auto) Baso # [...] Color Urine Appearance Urine pH Ur Specific [place] Urine Protein Urine Glucose (UA) Urine Ketones [...] MPV Neut % (Auto) Lymph % (Auto) [place] % (Auto) Eos % (Auto) Baso % (Auto) Nucleat RBC Rel Count Neut # (Auto) Lymph # (Auto) [place] # (Auto) Eos # (Auto) Baso # [...] Color Urine Appearance Urine pH Ur Specific [place] Urine Protein Urine Glucose (UA) Urine Ketones [...] signed by MD Lawrence Kim> 08/20/22 1029 [facility] Work Phone: [phone] Progress note Author Jeana Martini [facility] August 20, 2022 9:48am Note Date/Time August 20, 2022 9:[address] [facility] [address] [place] [address] Hospitalist Progress Note Signed Patient: Addie Jean Baptiste MR#: [id number] : 1975 Acct:[id number] Age/Sex: 47 / F Adm Date: 3 Loc: Room: [address] [place] [address] Type: ADM INOo Attending Dr: Jeana Martini [...] place, time and person, morbidly obese HEENT: [place] conjunctiva and NL buccal mucosa Neck: Supple, [...] 250 mg 08/20/22 08:00 08/20/22 08:26 Saccharomyces Yadielulardii 250 Mg Capsule PO 08/20/23 07:59 250 [...] <Electronically signed by Jeana Martini MD> 08/20/22947 [facility] Work Phone: 1(889) 103-495603-29-2023 History and physical note Author Ezekiel Mathew [facility] August 20, 2022 3:56am Note Date/Time August 20, 2022 3:[address] [facility] [address] [place] [address] Hospitalist H&P Signed Patient: Addie Jean Baptiste MR#: [id number] : 1975 Acct:[id number] Age/Sex: 47 / F Adm Date: 3 Loc: 3T Room: [address] [place] [address] Type: ADM INOo Attending Dr: Ezekiel Mathew [...] except as mentioned elsewhere in the documentation. [facility] Vaccinated for COVID-19?: Yes Medical History (Updated [...] % (Auto) 27.3 % (.) 08/20/22 00:19 [place] % (Auto) 6.0 % (.) 08/20/22 00:19 Eos % (Auto) 1.3 % (.) 08/20/22 00:19 Baso % (Auto) 0.7 % (.) 08/20/22 00:19 Nucleat RBC Rel Count 0.0 /100 WBC (0-0.5) 08/20/22 00:19 Neut # (Auto) 5.5 x10E3/uL (1.8-7.7) 08/20/22 00:19 Lymph # (Auto) 2.3 x10E3/uL (1.00-4.8) 08/20/22 00:19 [place]iposa # (Auto) 0.5 x10E3/uL (0.0-0.8) 08/20/22 00:19 [...] pH 6.5 (5.0-9.0) 08/20/22 01:07 Ur Specific [place] 1.017 (1.001-1.030) 08/20/22 01:07 Urine Protein 100 [...] She states that she does have a white mixing operator with Dr. Box. Since his partner [...] signed by Ezekiel Mathew DO> 08/20/22 0356 [facility] Work Phone: 1(841) 313-342003-28-2023 Hospital Discharge instructions Patient Education 08/19/2022 20:32:56 [...] and water are not available, use hand exam proctor. ?Change your dressing as told by your [...] antibiotic even if your condition improves. Take ggdn-mmu-edlfobu and prescription medicines only as told by [...] 02/17/2009 Document Revised: 08/29/2019 Document Reviewed: 11/25/2016 [employer] Patient Education 2020 [employer]. 08/19/2022 20:32:56 Type 2 Diabetes Mellitus, Self Care, Adult, Izid-uv-Wgdi Type 2 Diabetes Mellitus, Self Care, Adult [...] oil, and canola oil. Meet with a fast food cook (dietitian). He or she can help you [...] for cuts, bruises, redness, blisters, or sores. [place] your teeth and gums two times a day. Floss one or more times a day. Go to the dentist one or more times every 6 months. Stay at a healthy weight. General instructions Take xikn-ylm-pqxfkwo and prescription medicines only as told by your doctor. Share your diabetes care plan with: ?Your work or school. ?People you live with. Carry a card or wear jewelry that says you have diabetes. Keep all follow-up visits as told by your doctor. This is important. Questions to ask your doctor Do I need to meet with a diabetic educator? Where can I find a support group for people with diabetes? Where to find more information To learn more about diabetes, visit: [place] [employer]: www.diabetes.org [place] [employer] of Diabetes Educators: www.diabeteseducator.org Summary When [...] 09/01/2016 Document Revised: 11/01/2018 Document Reviewed: 06/13/2016 [employer] Patient Education 2020 [employer]. Follow Up Care 08/19/2022 17:03:41 With:Pool Heath Address: [address] [place] [id number] Business (1) When:08/22/2022 20:16:55 [facility]03-28-2023 Evaluation + Plan note Diagnostic Tests Pending * Blood Culture Charcoal 08/19/22 * Blood Culture Charcoal 08/19/22 * UA With Cult Reflex 08/19/22 * Wound Culture 08/19/22 Future Scheduled Tests Laboratory* Fecal WBC Lactoferrin 10/30/21 * Enteric Panel by PCR 10/30/21 Radiology* NM Myocardial Spect Rest/Stress 1 Day 12/16/21 * Echo Transthoracic Complete 4/12/22 [facility]01-09-2023 Hospital Discharge instructions Patient Education 06/02/2022 20:35:11 Seizure, Adult, Qvjg-zf-Ttyj Seizure, Adult A seizure is a sudden [...] Follow these instructions at home: Medicines Take vbhq-vyp-lwusnlv and prescription medicines only as told by [...] [place] ask your local DMV (department of [employer]) when you can drive. Get plenty of [...] 10/27/2008 Document Revised: 07/29/2019 Document Reviewed: 07/29/2019 [employer] Patient Education 2020 [employer]. 06/02/2022 20:35:11 Abdominal Pain, Adult, Maon-ry-Fqnf Abdominal Pain, Adult Many things can cause belly (abdominal) pain. Most times, belly pain is not dangerous. Many cases of belly pain can be watched and treated at home. Sometimes, though, belly pain is serious. Your doctor will try to find the cause of your belly pain. Follow these instructions at home: Medicines Take rgac-xwq-esogbbn and prescription medicines only as told by [...] your belly pain for any changes. Take jfyf-qtb-phxcadg and prescription medicines only as told by [...] 10/27/2008 Document Revised: 09/19/2019 Document Reviewed: 09/19/2019 [employer] Patient Education 2020 [employer]. Follow Up Care 06/02/2022 15:49:02 With:Pool Heath Address: [address] [place] [id number] Business (1) When:06/05/2022 20:05:40 Comments:Take your medications as prescribed. Please follow-up with your primary care doctor in addition to your neurologist for further evaluation management. Please return to ED for any new or worsening symptoms. [facility]01-09-2023 Evaluation + Plan noteExtracted from: Title:ED Note [...] Day 12/16/21 * Echo Transthoracic Complete 09/03/21 [facility]12-22-2022 Hospital Discharge instructions Patient Education 05/15/2022 16:59:08 Paronychia, Kqjv-hg-Dbpd Paronychia Paronychia is an infection of the [...] cannot use soap and water, use hand exam proctor. ?Change your bandage as told by your doctor. If you had a fluid-filled bump and your doctor drained it, check the area every day for signs of infection. Check for: ?Redness, swelling, or pain. ?Fluid or blood. ?Warmth. ?Pus or a bad smell. Medicines Take bahb-wkd-srhuyvm and prescription medicines only as told by [...] ?Wear gloves if your hands might touch inside sales person or chemicals. ?Avoid injuring your nails or [...] 04/29/2010 Document Revised: 05/28/2018 Document Reviewed: 05/24/2018 [employer] Patient Education 2020 [employer]. Follow Up Care 05/15/2022 16:12:54 With:Pool Heath Address: [place] [address]- Business (1) When:Within 3 Day(s) [facility]12-22-2022 Evaluation + Plan noteExtracted from: Title:ED Note Author:Heather Ortega PA-C [place] e:05/15/22 1. Paronychia, finger (L03.0 19: Cellulitis of unspecified finger) Orders: sulfamethoxazole-trimethoprim, 1 tab(s), Oral, BID for 7 day(s), 14 tab(s), Refill(s) [facility], [facility], cm, 05/15/22 16:23:00 EST, [...] Day 12/16/21 * Echo Transthoracic Complete 09/03/21 [facility]11-16-2022 Evaluation + Plan noteExtracted from: Title:Discharge Note Author:Kinza STEVENS, Pepe S Date:04/09/22 Discharge To, Anticipated II - Home [...] QID, PRN ergocalciferol 50,000 intl units Cap, 18839 International_Unit= 1 cap(s), Oral, q7day Keppra 250 [...] SAMUEL Jaimes Within 2 to 4 weeks [address] [place] [address]- Additional Instructions: Radha Dias DO Within 2 to 4 days [address] [place] [address]- Additional Instructions: Diabetes Mellitus and Nutrition, Adult [...] Oral, Daily ergocalciferol 50,000 intl units Cap, 70631 International_Unit= 1 cap(s), Oral, q7day insulin glargine [...] SAMUEL Jaimes Within 2 to 4 weeks [address] [place] [address]- Additional Instructions: Radha Dias DO Within 2 to 4 days [address] [place] [address]- Additional Instructions: Diabetes Mellitus and Nutrition, Adult Diabetes Mellitus and Foot Care Diabetes Mellitus and Exercise Addendum by Kinza STEVENS [facility] on April 08, 2022 13:12:55 EST Add [...] walks with FWW Addendum by Kinza STEVENS [facility] on April 08, 2022 14:09:08 EST For [...] of symptom onset she was evaluated at [facility] and had a stroke work-up, results of which are unclear. CT head here does not show any obvious areas of subacute ischemia. Could also consider lumbar radiculopathy as a potential explanation given her known lumbar spondylosis. Nondermatomal sensory loss and nonmyotomal pattern of weakness. Very questionable effort. 3. Chronic diabetic polyneuropathy. PLAN: 1. Obtaining hospital records from [facility] to ensure they looked into stroke [...] were abnormal. An additional EEG will not blade changer. 1. DKA (diabetic ketoacidosis) (E11.10: Type 2 [...] of symptom onset she was evaluated at [facility] and had a stroke work-up, results of which are unclear. CT head here does not show any obvious areas of subacute ischemia. Could also consider lumbar radiculopathy as a potential explanation given her known lumbar spondylosis. Nondermatomal sensory loss and nonmyotomal pattern of weakness. 3. Chronic diabetic polyneuropathy. PLAN: 1. Obtaining hospital records from [facility] 2. Continue the Keppra at 750 [...] were abnormal. An additional EEG will not blade changer. 1. DKA (diabetic ketoacidosis) (E11.10: Type 2 [...] 2 diabetes mellitus with ketoacidosis without coma) [place] to be mild versus nonketotic hyperosmolar state [...] deficits) Patient states she was hospitalized at [facility] with right leg weakness and numbness 3 weeks ago. Curiously she states she had been on aspirin previously and there was no change in her therapy. We will obtain records from [facility] in regards to her recent hospitalization. [...] she did have an ICD placed at [facility] in 2019 denies any recent discharge [...] Level myStation Chronic Obstructive Pulmonary Disease COPD (ADRIANE:[id number]) Notify Provider Vital Signs Notify Provider Vital [...] Day 12/16/21 * Echo Transthoracic Complete 09/03/21 [facility]11-14-2022 Hospital Discharge instructions Patient Education 04/07/2022 07:24:34 [...] that you work with a diet and clinical nutritionist (dietitian) tomake a meal plan that is [...] care provider. Work with a counselor or diabetic educator to identify strategies to manage stress and any emotional and social challenges. Questions to ask a health care provider Do I need to meet with a diabetic educator? Do I need to meet with a dietitian? What number can I call if I have questions? When are the best times to check my blood glucose? Where to find more information: [place] Diabetes Association: diabetes.org Academy of Nutrition and Dietetics: www.eatright.org National [place] of Diabetes and Digestive and Kidney Diseases (NIH): www.niddk.nih.gov Summary A healthy meal plan will help you control your blood glucose and maintain a healthy lifestyle. Working with a diet and clinical nutritionist (dietitian) can help you make a meal [...] 02/05/2006 Document Revised: 04/23/2018 Document Reviewed: 06/15/2017 [employer] Patient Education 2020 [employer] 04/07/2022 07:24:34 Diabetes Mellitus and Foot Care Diabetes Mellitus and Foot Care Foot care is an important part of your health, especially when you have diabetes. Diabetes may cause you to have problems because of poor blood flow (circulation) to your feet and legs, which can cause your skin to: Become thinner and chip drier. Break more easily. Heal more slowly. Peel [...] 05/08/2001 Document Revised: 06/23/2018 Document Reviewed: 06/12/2017 [employer] Patient Education 2020 [employer]. 04/07/2022 07:24:32 Diabetes Mellitus and Exercise Diabetes [...] plan? Your health care provider or certified nurse operating room can help you make a plan for [...] stress. Your health care provider or certified nurse operating room can help you make a plan for [...] 07/31/2004 Document Revised: 12/03/2017 Document Reviewed: 10/20/2016 [employer] Patient Education 2020 [employer]. Follow Up Care 04/06/2022 20:30:13 With:Polo Bo MD, NEU Address: [facility] [address] [place] [address]- Business (1) When:05/01/2022 12:40:00 With:Radha Dias DO Address: [address] [place] [address]- When:04/23/2022 12:45:00 [facility]10-06-2022 Hospital Discharge instructions Patient Education 02/27/2022 17:35:47 Nonspecific Chest Pain, Adult, Ruwx-bx-Gntj Nonspecific Chest Pain Chest pain can be [...] Follow these instructions at home: Medicines Take bnxr-cpf-mkzucct and prescription medicines only as told by [...] ?Eating a heart-healthy diet. A diet and clinical nutritionist (dietitian) can help you to learn healthy [...] 10/27/2008 Document Revised: 11/11/2018 Document Reviewed: 11/11/2018 [employer] Patient Education 2020 [employer]. 02/27/2022 17:35:47 Seizure, Adult, Oany-kl-Ktcu Seizure, Adult A seizure is a sudden [...] Follow these instructions at home: Medicines Take amzs-lzv-jznjqip and prescription medicines only as told by [...] [place]., ask your local DMV (department of [employer]) when you can drive. Get plenty of [...] 10/27/2008 Document Revised: 07/29/2019 Document Reviewed: 07/29/2019 [employer] Patient Education 2020 [employer]. Follow Up Care 02/27/2022 11:56:29 With:[facility] with [facility] Address:Unknown When: Unknown With:Radha Dias Address: [address] [place] [address] [place], [facility], [facility] [address] [place] [address]- Business (1) When:Within 3 Day(s) [facility]10-06-2022 Evaluation + Plan noteExtracted from: Title:ED Note [...] BID, # 60 tab(s), Refills(s) 0, [facility], [facility], cm, 02/27/22 12:02:00 EDT, [...] or 2 Views Diagnostic Tests Pending * Chasra Lvl 02/27/22 Future Scheduled Tests Laboratory* Fecal WBC Lactoferrin 10/30/21 * HgbA1c 07/29/21 * Enteric Panel by PCR 10/30/21 * Thyroid Stimulating Hormone 07/29/21 Radiology* NM Myocardial Spect Rest/Stress 1 Day 12/16/21 * Echo Transthoracic Complete 09/03/21 [facility]09-30-2022 Hospital Discharge instructions Patient Education 02/21/2022 15:44:29 [...] and water are not available, use hand exam proctor. Keep the wound clean and dry. If [...] falls off the skin. General instructions Take wtyv-ule-puolqqx and prescription medicines only as told by [...] 05/11/2006 Document Revised: 07/09/2018 Document Reviewed: 05/31/2018 [employer] Patient Education 2020 [employer]. Follow Up Care 02/21/2022 14:51:18 With:Radha Dias Address: [address] [place] [address] Business (1) When:02/24/2022 15:15:47 Comments:Follow-up with your primary care provider in 3 to 5 days. If symptoms worsen, do not improve, or new symptoms arise please report back to emergency department for further evaluation. Sutures to be removed in 10 days. [facility]09-02-2022 Hospital Discharge instructions Patient Education 01/24/2022 14:32:12 [...] water added (diluted fruit juice). Eat bland, rmsm-fx-chlctq foods in small amounts as you are able. These foods include bananas, applesauce, rice, lean meats, toast, and crackers. Avoid fluids that contain a lot of sugar or caffeine, such as energy drinks, sports drinks, and soda. Avoid alcohol. Avoid spicy or fatty foods. General instructions Take krea-qfx-iwikgxf and prescription medicines only as told by your health care provider. Drink enough fluid to keep your urine pale yellow. Wash your hands often using soap and water. If soap and water are not available, use hand exam proctor. Make sure that all people in your [...] eating and drinking to prevent dehydration. Take rouv-rka-uiunnur and prescription medicines only as told by [...] 05/11/2006 Document Revised: 09/02/2019 Document Reviewed: 10/19/2018 [employer] Patient Education 2020 [employer] 01/24/2022 14:32:12 Diarrhea, Adult Diarrhea, Adult Diarrhea [...] oral rehydration solution (ORS). This is an ykjo-lne-vjbjrxa medicine that helps return your body to [...] drinks, sports drinks, and soda. Eat bland, fpvz-ww-exjoze foods in small amounts as you are able. These foods include bananas, applesauce, rice, lean meats, toast, and crackers. Avoid alcohol. Avoid spicy or fatty foods. Medicines Take vdec-sah-kopordv and prescription medicines only as told by your health care provider. If you were prescribed an antibiotic medicine, take it as told by your health care provider. Do notstop using the antibiotic even if you start to feel better. General instructions Wash your hands often using soap and water. If soap and water are not available, use a hand exam proctor. Others in the household should wash their [...] soap and water are not available, usehand exam proctor. Contact a health care provider if your diarrhea gets worse or you have new symptoms. Get help right away if you have signs of dehydration. This information is not intended to replace advice given to you by your health care provider. Make sure you discuss any questions you have with your health care provider. Document Released: 05/01/2003 Document Revised: 09/27/2019 Document Reviewed: 10/15/2018 [employer] Patient Education 2020 [employer]. 01/24/2022 14:32:12 Acute Pain, Adult Acute Pain, [...] Follow these instructions at home: Medicines Take vace-flx-jpxjwbz and prescription medicines only as told by [...] pain is severe. ?Do not take other sfey-yog-efujpvj pain medicines in addition to prescription pain [...] grains, and fresh fruits and vegetables. ?Take taxb-jhg-nujtlka or prescription medicines. ?Limit foods that are [...] or you are no longer ill. Take dilb-wnv-kxfamas and prescription medicines only as told by [...] 05/25/2016 Document Revised: 09/26/2019 Document Reviewed: 09/26/2019 [employer] Patient Education 2020 [employer]. Follow Up Care 01/24/2022 10:45:45 With:Radha Dias Address: [facility] Will Beauchamp , [address] [address] [facility] (1) When:01/27/2022 14:08:11 [facility]08-18-2022 Hospital Discharge instructions Patient Education 01/09/2022 17:03:20 [...] exercise. Managing pain, stiffness, and swelling Take qdlr-int-skmlmyu and prescription medicines only as told by [...] 05/11/2006 Document Revised: 04/23/2018 Document Reviewed: 06/10/2017 [employer] Patient Education 2020 [employer]. 01/09/2022 17:03:20 Chest Wall Pain Chest Wall [...] are safe for you. General instructions Take xdvi-pfn-mquflyq and prescription medicines only as told by [...] right away. Call your local emergency services (067 in the [place] Do not drive yourself [...] 05/11/2006 Document Revised: 11/11/2018 Document Reviewed: 11/11/2018 [employer] Patient Education 2020 [employer]. Follow Up Care 01/09/2022 12:14:58 With:Kirk Abbott Address: [address] [place] [address] [facility] (1) When:1 to 2 weeks Comments:Call [...] scheduling to schedule a 2-day stress test. [facility] [employer] evaluated you during your hospital stay and they cleared you for discharge. Please follow-up with distiller after stress test is complete. Please do not delay the stress test any further. Keep taking the medications as you are taking as we are not changing anything.Dr. Juan [facility] Evaluation + Plan noteExtracted from: Title:Consult Note [...] prophylactic measures, unspecified) Extracted from: Title:Discharge Note Author:Jaun GONZALEZ MD te:01/09/22 Discharged to - Home [...] Kirk Abbott Within 1 to 2 weeks [address] [place] [address] [facility] (1) Additional Instructions: Call for followup appointment Call physician if symptoms worsen Breanna Riccardo Within 7 to 10 days Additional Instructions: [...] scheduling to schedule a 2-day stress test. [employer] evaluated you during your hospital stay and they cleared you for discharge. Please follow-up with distiller after stress test is complete. Please do not delay the stress test any further. Keep taking the medications as you are taking as we are not changing anything. Dr. Juan Gonzalez Hospitalist at [facility] Musculoskeletal Pain Chest Wall Pain Extracted [...] made to ensure accuracy, however, inadvertently computerized web marketing assistant mistakes may be present. Dr. Juan Gonzalez Hospitalist at [facility] Extracted from: Title:ED Note Author:Jose Miguel [...] Day 12/16/21 * Echo Transthoracic Complete 09/03/21 [facility]07-21-2022 Hospital Discharge instructions Patient Education 12/12/2021 17:14:21 [...] 06/18/2005 Document Revised: 04/23/2018 Document Reviewed: 08/06/2017 [employer] Patient Education 2020 [employer]. 12/12/2021 17:14:19 BMI for Adults BMI for [...] height. This can be done either in [place] ([place] or metric measurements. Note that charts are available to help you find your BMI quickly and easily without having to do these calculations yourself. To calculate your BMI in [place] measurements, your health care provider will: [...] medical problems. BMI can be measured using [place] measurements or metric measurements. To interpret your [...] 01/20/2005 Document Revised: 04/23/2018 Document Reviewed: 03/24/2018 [employer] Patient Education 2020 [employer]. 12/12/2021 17:04:18 Lactose Intolerance, Adult Lactose Intolerance, [...] you eat milk products. Lactase tablets are zduh-wbj-hqqlrxa medicines that help to improve lactose digestion. [...] contain: ?Lactose. ?Milk solids. ?Casein. ?Whey. Take rfkb-quu-gzfrvmu and prescription medicines (including lactase tablets) only as told by your health care provider. If you stop eating and drinking dairy products (eliminate dairy from your diet), make sure to get enough protein, calcium, and vitamin D from other foods. Work with your health care provider or a diet and clinical nutritionist (dietitian) to make sure you get enough [...] 05/11/2006 Document Revised: 04/23/2018 Document Reviewed: 12/25/2017 [employer] Patient Education 2020 [employer]. Follow Up Care 12/12/2021 12:11:17 With:Breanna Gu CNP Address: When: only if needed [facility] 07-17-2022 Hospital Discharge instructions [...] hard liquor (44 mL). General instructions Take nlsf-qse-dkahugt and prescription medicines only as told by your health care provider. Practice techniques for relaxation and managing anxiety at times you are not challenged by social anxiety. Return to social activities using techniques you have learned, as you feel ready to do so. Avoid caffeine and certain fmsx-tfu-qnlxdph cold medicines. These may make you feel worse. Ask yourpharmacists which medicines to avoid. Keep all follow-up visits as told by your health care provider. This is important. Where to find more information National [place] on Mental Illness (AVA): https://www.ava.org Social Anxiety [...] 04/09/2006 Document Revised: 10/12/2019 Document Reviewed: 10/12/2019 [employer] Patient Education 2020 [employer]. 12/08/2021 14:29:40 Seizure, Adult Seizure, Adult A [...] having seen or heard something before (d jyoti vu). Odd tastes or smells. Changes in [...] Follow these instructions at home: Medicines Take tetk-lnt-smmpngs and prescription medicines only as told by [...] medicines are used to treat seizures. Take rscw-zco-kgdjtgj and prescription medicines only astold by your health care provider. This information is not intended to replace advice given to you by your health care provider. Make sure you discuss any questions you have with your health care provider. Document Released: 05/08/2001 Document Revised: 07/29/2019 Document Reviewed: 07/29/2019 [employer] Patient Education 2020 [employer]. Follow Up Care 12/08/2021 09:53:20 With:Polo Bo Address: [address] [place] [address]- Business (1) When:12/11/2021 13:49:13 Comments:If you do not have a neurologist, follow-up with Dr. Bo. With:Breanna Gu Address: [address] [place] [address] [phone] [facility] (1) When:12/11/2021 13:48:53 Comments:Follow-up with your primary care provider in 3 to 5 days. If symptoms worsen, do not improve, or new symptoms arise please report back to emergency department for further evaluation. Follow-up with your neurologist immediately. [facility]06-15-2022 Evaluation + Plan noteExtracted from: Title:Discharge Note [...] Date:11/14/2021 10:00:00 AM Scheduled Provider:Breanna Gu CNP Location:[facility] Appointment Type: ER/Hospital Follow Up Appointment Date:11/14/2021 12:15:00 PM Scheduled Provider: [facility] Appointment Type:NM Myocard Spect Multi Rest/Stress-Res Appointment Date:11/14/2021 01:15:00 PM Scheduled Provider: Location:[facility] Appointment Type:NM Myocard Spect Multi Rest/Stress - R Appointment Date:11/14/2021 01:45:00 PM Scheduled Provider: Location:[facility] Appointment Type:NM Myocard Spect Multi Rest/Stress-Str Appointment Date:11/14/2021 02:45:00 PM Scheduled Provider: [facility] Appointment Type:NM Myocar Spect Multi Rest/Stress - St Appointment Date:11/20/2021 11:45:00 AM Scheduled Provider:Yuriy Fraser MD [facility] Type:Cardiology Follow Up (FT) Appointment Date:01/01/2022 02:00:00 PM Scheduled Provider:Breanna Gu CNP Location:[facility] Appointment Type:FM Open Future Scheduled Tests Laboratory* Fecal WBC Lactoferrin 10/30/21 * HgbA1c 07/29/21 * Enteric Panel by PCR 10/30/21 * Thyroid Stimulating Hormone 07/29/21 Radiology* NM Myocardial Spect Rest/Stress 1 Day 11/14/21 * Echo Transthoracic Complete 09/03/21 [facility]06-15-2022 Hospital Discharge instructions Patient Education 11/06/2021 11:33:32 Urinary Tract Infection, Adult, Uken-as-Cwyw Urinary Tract Infection, Adult A urinary tract [...] Follow these instructions at home: Medicines Take iguy-npm-gfsasko and prescription medicines only as told by [...] 10/27/2008 Document Revised: 04/28/2019 Document Reviewed: 11/18/2018 [employer] Patient Education 2020 [employer] 11/06/2021 11:33:32 Urinary Tract Infection, Adult, Flqh-ll-Mnjf Urinary Tract Infection, Adult A urinary tract [...] Follow these instructions at home: Medicines Take yxez-syg-edkawdt and prescription medicines only as told by [...] 10/27/2008 Document Revised: 04/28/2019 Document Reviewed: 11/18/2018 [employer] Patient Education 2020 [employer]. 11/06/2021 11:33:28 Antibiotic Medicine, Adult, Mbjk-fx-Pqct Antibiotic Medicine, Adult Antibiotic medicines treat infections [...] 02/17/2009 Document Revised: 06/17/2019 Document Reviewed: 05/13/2017 [employer] Patient Education 2020 [employer]. 11/06/2021 11:33:28 Antibiotic Medicine, Adult, Pspk-cx-Mefq Antibiotic Medicine, Adult Antibiotic medicines treat infections [...] 02/17/2009 Document Revised: 06/17/2019 Document Reviewed: 05/13/2017 [employer] Patient Education 2019 [employer] Follow Up Care 11/04/2021 11:24:24 With:Breanna Gu Address:Unknown When: Unknown [facility]06-08-2022 Evaluation + Plan note Future Scheduled Tests Laboratory* Fecal WBC Lactoferrin 10/30/21 * HgbA1c 07/29/21 * Enteric Panel by PCR 10/30/21 * Thyroid Stimulating Hormone 07/29/21 Radiology* NM Myocardial Spect Rest/Stress 1 Day 12/16/21 * Echo Transthoracic Complete 09/03/21 [facility] 06-08-2022 Evaluation + Plan note Future Scheduled Tests Laboratory* Fecal WBC Lactoferrin 10/30/21 * Enteric Panel by PCR 10/30/21 Radiology* NM Myocardial Spect Rest/Stress 1 Day 12/16/21 * Echo Transthoracic Complete 09/03/21 [facility]05-18-2022 Hospital Discharge instructions Patient Education 10/09/2021 17:53:37 [...] Follow these instructions at home: Medicines Take ngkj-pbs-vrikgrg and prescription medicines only as told by [...] and water are not available, use hand exam proctor. Avoid contact with people who have cold [...] 06/18/2005 Document Revised: 03/24/2019 Document Reviewed: 10/29/2016 [employer] Patient Education 2020 [employer]. Follow Up Care 10/09/2021 15:26:41 With:Breanna Gu [...] legs, or any new or worsening symptoms. [facility]05-09-2022 Hospital Discharge instructions Patient Education 09/30/2021 14:51:24 [...] ?Hypothyroidism. ?Polycystic ovarian syndrome (PCOS). ?Binge-eating disorder. ?[place] syndrome. Taking certain medicines, such as steroids, [...] food choices, such as grocery stores and [employer]. What are the signs or symptoms? The [...] and how much exercise you get. Take euzl-oej-noqdcxn and prescription medicines only as told by [...] 06/18/2005 Document Revised: 01/13/2019 Document Reviewed: 01/13/2019 [employer] Patient Education 2020 [employer]. 09/30/2021 14:51:20 Hypothyroidism Hypothyroidism Hypothyroidism is when [...] away. Follow these instructions at home: Take umfk-sqz-pdhnloe and prescription medicines only as told by [...] 05/11/2006 Document Revised: 04/23/2018 Document Reviewed: 04/21/2018 [employer] Patient Education 2020 [employer]. 09/30/2021 14:51:16 Preventing Diabetes Mellitus Complications Preventing [...] lead to tooth loss. To prevent this: [place] your teeth twice a day. Floss at [...] 01/27/2012 Document Revised: 08/09/2018 Document Reviewed: 02/07/2017 [employer] Patient Education 2020 [employer]. 09/30/2021 14:51:12 General Anesthesia, Adult General Anesthesia, [...] including vitamins, herbs, eye drops, creams, and dzjo-qyd-wrefxgy medicines. Any problems you or family members [...] provider tells you to take them. Taking fixg-jsf-ztzxvmb medicines, vitamins, herbs, and supplements. Do not [...] 08/17/2008 Document Revised: 09/28/2018 Document Reviewed: 12/25/2017 [employer] Patient Education 2020 [employer]. [facility] 01-21-2022 Evaluation note* Encounter [...] Patient care instructions given in writting by [facility] Care At Home document. [employer] Other Consult note Author Lawrence Kim [facility] August 20, 2022 10:27am Note Date/Time August 20, 2022 10: 26am [facility] [address] [place] [address] Infect. Disease Consult Note Signed Patient: Addie Jean Baptiste MR#: [id number] : 1975 Acct:[id number] Age/Sex: 47 / F Adm Date: 3 Loc: 3T Room: [address] [place] [address] Type: ADM INOo Attending Dr: Jeana Martini [...] me she was hospitalized in July at [facility] for 4 days for this. She apparently [...] negative unless noted below or in HPI [facility] Attestation Statement: The following information was validated [...] DAILY@1000 SAMEER Stop: 08/20/23 09:59 Last Admin: 08/20/22 09:29 Dose: 40 mg Ergocalciferol (Ergocalciferol 1,250 Mcg (50,000 Units) Capsule) 1,250 mcg PO Q7D SAMEER Stop: 08/20/23 09:44 Furosemide (Furosemide 20 Mg Tablet) 20 mg PO DAILY.8A [facility] Stop: 08/20/23 07:59 Last Admin: 08/20/22 09:26 Dose: 20 mg Glucose (Dextrose 40% Gel 15 Gm Tube) 0 gm PO PRN PRN PRN Reason: Hypoglycemia Stop: 08/20/23 03:40 Ampicillin Sodium/Sulbactam Sodium (Unasyn) 3 gm in 100 mls @ 200 mls/hr IV Q6HSCH Last Admin: 08/20/22 09:27 Dose: 200 mls/hr Levetiracetam (Levetiracetam 250 Mg Tablet) 750 mg PO BID [facility] Stop: 08/20/23 08:59 Last Admin: 08/20/22 08:24 Dose: 750 mg Levothyroxine Sodium (Levothyroxine 75 Mcg Tablet) 75 mcg PO DAILY@0630 SAMEER Stop: 08/20/23 06:29 Last Admin: 08/20/22 06:15 Dose: 75 mcg Lisinopril (Lisinopril 40 Mg Tablet) 40 mg PO DAILY [facility] Stop: 08/20/23 08:59 Last Admin: 08/20/22 08:25 Dose: 40 mg Metformin HCl (Metformin 500 Mg Tablet) 1,000 mg PO BID.WITH.MEALS [facility] Stop: 08/20/23 07:59 Last Admin: 08/20/22 08:25 Dose: 1,000 mg Pantoprazole Sodium (Pantoprazole 40 Mg Tablet.Dr) 40 mg PO DAILY [facility] Stop: 08/21/23 08:59 Pregabalin (Pregabalin 150 Mg Capsule) [address] [facility] Stop: 02/16/23 03:44 Last Admin: 08/20/22 04:09 Dose: 150 mg Quetiapine Fumarate (Quetiapine Fumarate 200 Mg Tablet) [address] [facility] Stop: 08/20/23 03:59 Last Admin: 08/20/22 04:09 Dose: 800 mg Saccharomyces Boulardii (Saccharomyces Boulardii 250 Mg Capsule) 250 mg PO BID.WITH.MEALS [facility] Stop: 08/20/23 07:59 Last Admin: [...] % (Auto) 64.7 Lymph % (Auto) 27.3 [place] % (Auto) 6.0 Eos % (Auto) 1.3 Baso % (Auto) 0.7 Nucleat RBC Rel Count 0.0 Neut # (Auto) 5.5 Lymph # (Auto) 2.3 [place] # (Auto) 0.5 Eos # (Auto) 0.1 [...] Color Urine Appearance Urine pH Ur Specific [place] Urine Protein Urine Glucose (UA) Urine Ketones [...] MPV Neut % (Auto) Lymph % (Auto) [place] % (Auto) Eos % (Auto) Baso % (Auto) Nucleat RBC Rel Count Neut # (Auto) Lymph # (Auto) [place] # (Auto) Eos # (Auto) Baso # [...] Appearance Clear Urine pH 6.5 Ur Specific [place] 1.017 Urine Protein 100 H Urine Glucose [...] % (Auto) 68.9 Lymph % (Auto) 22.6 [place] % (Auto) 6.9 Eos % (Auto) 1.1 Baso % (Auto) 0.5 Nucleat RBC Rel Count 0.2 Neut # (Auto) 6.2 Lymph # (Auto) 2.0 [place] # (Auto) 0.6 Eos # (Auto) 0.1 [...] Color Urine Appearance Urine pH Ur Specific [place] Urine Protein Urine Glucose (UA) Urine Ketones [...] MPV Neut % (Auto) Lymph % (Auto) [place] % (Auto) Eos % (Auto) Baso % (Auto) Nucleat RBC Rel Count Neut # (Auto) Lymph # (Auto) [place] # (Auto) Eos # (Auto) Baso # [...] Color Urine Appearance Urine pH Ur Specific [place] Urine Protein Urine Glucose (UA) Urine Ketones [...] MPV Neut % (Auto) Lymph % (Auto) [place] % (Auto) Eos % (Auto) Baso % (Auto) Nucleat RBC Rel Count Neut # (Auto) Lymph # (Auto) [place] # (Auto) Eos # (Auto) Baso # [...] Color Urine Appearance Urine pH Ur Specific [place] Urine Protein Urine Glucose (UA) Urine Ketones [...] signed by MD Lawrence Kim> 08/20/22 1027 [facility] Work Phone: Consult note Author Swapnil Castillo [facility] August 20, 2022 1:14pm Note Date/Time August 20, 2022 1:[address] [facility] [address] [place] [address] Podiatry Consult Note Signed Patient: Addie Jean Baptiste MR#: [id number] : 1975 Acct:[id number] Age/Sex: 47 / F Adm Date: 3 Loc: Room: [address] [place] [address] Type: ADM IN Attending Dr: Jeana Martini [...] <Electronically signed by LUPE Castillo> 08/20/22 1314 [facility] Work Phone: Consult note Author Shameka Romero [facility] August 21, 2022 4:02pm Note Date/Time August 21, 2022 4:[address] [facility] [address] [place] [address] Vascular Surgery Consult Note Signed Patient: Addie Jean Baptiste MR#: [id number] : 1975 Acct:[id number] Age/Sex: 47 / F Adm Date: 3 Loc: Room: [address] [place] [address] Type: ADM IN Attending Dr: Jeana Martini [...] date: 08/21/2022 Requesting Physician: Jeana Martini MD [facility] Vaccinated for COVID-19?: Yes Medical History [...] % (Auto) 69.4 Lymph % (Auto) 20.6 [place] % (Auto) 7.4 Eos % (Auto) 1.8 Baso % (Auto) 0.8 Nucleat RBC Rel Count 0.0 Neut # (Auto) 5.7 Lymph # (Auto) 1.7 [place] # (Auto) 0.6 Eos # (Auto) 0.2 [...] MPV Neut % (Auto) Lymph % (Auto) [place] % (Auto) Eos % (Auto) Baso % (Auto) Nucleat RBC Rel Count Neut # (Auto) Lymph # (Auto) [place] # (Auto) Eos # (Auto) Baso # [...] Acute Documented By: Shameka Romero MD 08/21/22 1551 Signed By: <Electronically signed by Shameka Romero MD> 08/21/22 1602 [facility] Work Phone: Discharge summary Author Jeana Martini [facility] August 22, 2022 1:35pm Note Date/Time August 22, 2022 1:[address] [facility] [address] [place], [place] [id number] Discharge Summary Signed Patient: Addie Jean Baptiste MR#: [id number] : 1975 Acct:[id number] Age/Sex: 47 / F Adm Date: 3 Loc: 3T Room: [address] [place] [address]: Jeana Martini MD Copies to: [...] on intravenous antibiotic Patient was seen by white mixing operator who recommended and performed bedside incision [...] place, time and person, morbidly obese HEENT: [place] conjunctiva and NL buccal mucosa Neck: Supple, [...] ask your primary care provider to obtain [facility] records entirely to follow up on all of the abnormal physical, laboratory, and imaging findings that I have not addressed. Please follow-up with Dr. Romero to evaluate your circulation Please return back to the emergency room or seek medical attention if your symptoms worsen or return. Discharging you from [facility] does not mean that your medical care [...] to 2 weeks. Please call for appointment.) [facility] [Physician] - 08/25/22 10:15 am (Follow-up with your Primary Care Provider, call office to reschedule if needed. ) Documented By: Jeana Martini MD 08/22/22 1325 Signed By: <Electronically signed by Jeana Martini MD> 08/22/22 1339 [facility] Work Phone: Evaluation + Plan note Future Appointments Appointment Date:09/02/2021 02:45:00 PM Scheduled Provider:Kirk Abbott MD [facility] Type:Cardiology New Patient (FT) Appointment Date:10/30/2021 03:40:00 PM Scheduled Provider:Breanna Gu CNP Location:[facility] Appointment Type:FM Open Future Scheduled Tests Laboratory* HgbA1c 07/29/21 * Microalbumin Level Urine 07/29/21 * CBC w/ Auto Diff 07/29/21 * Comprehensive Metabolic Panel 07/29/21 * Lipid Panel 07/29/21 * Thyroid Stimulating Hormone 07/29/21 [facility] App[facility]ments Appointment Date:10/15/2021 01:00:00 PM Scheduled Provider:Nancy GUTIERREZ CNP [facility] Type:Cardiology Follow Up (FT) Appointment Date:10/30/2021 03:40:00 PM Scheduled Provider:Breanna Gu CNP Location:[facility] Appointment Type:FM Open Future Scheduled Tests Laboratory* HgbA1c 07/29/21 * Microalbumin Level Urine 07/29/21 * CBC w/ Auto Diff 07/29/21 * Comprehensive Metabolic Panel 07/29/21 * Lipid Panel 07/29/21 * Thyroid Stimulating Hormone 07/29/21 [facility] Future Appointments Appointment Date:09/30/2021 02:00:00 PM Scheduled Provider:Breanna Gu CNP Location:[facility] Appointment Type:FM Open Appointment Date:10/15/2021 01:00:00 PM Scheduled Provider:Nancy GUTIERREZ CNP [facility] Type:Cardiology Follow Up (FT) Appointment Date:10/30/2021 03:40:00 PM Scheduled Provider:Breanna Gu CNP Location:[facility] Appointment Type:FM Open Future Scheduled Tests Laboratory* HgbA1c 07/29/21 * Microalbumin Level Urine 07/29/21 * CBC w/ Auto Diff 07/29/21 * Comprehensive Metabolic Panel 07/29/21 * Lipid Panel 07/29/21 * Thyroid Stimulating Hormone 07/29/21 Radiology* Echo Transthoracic Complete [facility]03[facility]21 [facility] App[facility]ments Appointment Date:10/15/2021 01:00:00 PM Scheduled Provider:Nancy GUTIERREZ CNP [facility] Type:Cardiology Follow Up (FT) Appointment Date:01/01/2022 02:00:00 PM Scheduled Provider:Breanna Gu CNP Location:[facility] Appointment Type:FM Open Future Scheduled Tests Laboratory* HgbA1c 09/30/21 * HgbA1c 07/29/21 * Microalbumin Level Urine 07/29/21 * CBC w/ Auto Diff 07/29/21 * Comprehensive Metabolic Panel 07/29/21 * Lipid Panel 07/29/21 * Thyroid Stimulating Hormone 09/30/21 * Thyroid Stimulating Hormone 07/29/21 Radiology* Echo Transthoracic Complete 09/03/21 [facility] Evaluation + Plan note Future Appointments Appointment Date:10/15/2021 01:00:00 PM Scheduled Provider:Nancy GUTIERREZ CNP [facility] Type:Cardiology Follow Up (FT) Appointment Date:01/01/2022 02:00:00 PM Scheduled Provider:Breanna Gu CNP Location:[facility] Appointment Type:FM Open Future Scheduled Tests Laboratory* HgbA1c 07/29/21 * Thyroid Stimulating Hormone 07/29/21 Radiology* Echo Transthoracic Complete [facility] Future Appointments Appointment Date:10/15/2021 01:00:00 PM Scheduled Provider:Nancy GUTIERREZ CNP [facility] Type:Cardiology Follow Up (FT) Appointment Date:01/01/2022 02:00:00 PM Scheduled Provider:Breanna Gu CNP Location:[facility] Appointment Type:FM Open Future Scheduled Tests Laboratory* HgbA1c 07/29/21 * Thyroid Stimulating Hormone 07/29/21 Radiology* NM Myocardial Spect Rest/Stress 1 Day 10/07/21 * Echo Transthoracic Complete 09/03/21 [facility] Future Appointments Appointment Date:11/14/2021 12:15:00 PM Scheduled Provider: [facility] Appointment Type:NM Myocard Spect Multi Rest/Stress-Res Appointment Date:11/14/2021 01:15:00 PM Scheduled Provider: [facility] Appointment Type:NM Myocard Spect Multi Rest/Stress - R Appointment Date:11/14/2021 01:45:00 PM Scheduled Provider: [facility] Appointment Type:NM Myocard Spect Multi Rest/Stress-Str Appointment Date:11/14/2021 02:45:00 PM Scheduled Provider: [facility] Appointment Type:NM Myocar Spect Multi Rest/Stress - St Appointment Date:11/20/2021 11:45:00 AM Scheduled Provider:Yuriy Fraser MD [facility] Type:Cardiology Follow Up (FT) Appointment Date:01/01/2022 02:00:00 PM Scheduled Provider:Breanna Gu CNP Location:[facility] Appointment Type: Open Diagnostic Tests Pending * Urine Culture 10/30/21 Future Scheduled Tests Laboratory* Fecal WBC Lactoferrin 10/30/21 * HgbA1c 07/29/21 * Enteric Panel by PCR 10/30/21 * Thyroid Stimulating Hormone 07/29/21 Radiology* NM Myocardial Spect Rest/Stress 1 Day 11/14/21 * Echo Transthoracic Complete 09/03/21 [facility] Future Appointments Appointment Date:11/20/2021 11:45:00 AM Scheduled Provider:Yuriy Fraser MD [facility] Type:Cardiology Follow Up (FT) Appointment Date:12/02/2021 10:00:00 AM Scheduled Provider:Breanna Gu CNP Location:[facility] Appointment Type:FM ER/Hospital Follow Up Appointment Date:01/01/2022 02:00:00 PM Scheduled Provider:Breanna Gu CNP Location:[facility] Appointment Type:FM Open Future Scheduled Tests Laboratory* Fecal WBC Lactoferrin 10/30/21 * HgbA1c 07/29/21 * Enteric Panel by PCR 10/30/21 * Thyroid Stimulating Hormone 07/29/21 Radiology* Echo Transthoracic Complete 09/03/21 [facility] Future Appointments Appointment Date:12/02/2021 10:00:00 AM Scheduled Provider:Breanna Gu CNP Location:[facility] Appointment Type: ER/Hospital Follow Up Appointment Date:01/01/2022 02:00:00 PM Scheduled Provider:Breanna Gu CNP Location:[facility] Appointment Type: Open Future Scheduled Tests Laboratory* Fecal WBC Lactoferrin 10/30/21 * HgbA1c 07/29/21 * Enteric Panel by PCR 10/30/21 * Thyroid Stimulating Hormone 07/29/21 Radiology* Echo Transthoracic Complete 09/03/21 [facility] Future Appointments Appointment Date:12/16/2021 08:30:00 AM Scheduled Provider: [facility] Appointment Type:NM Myocard Spect Multi Rest/Stress-Res Appointment Date:12/16/2021 09:30:00 AM Scheduled Provider: [facility] Appointment Type:NM Myocard Spect Multi Rest/Stress - R Appointment Date:12/16/2021 10:00:00 AM Scheduled Provider: [facility] Appointment Type:NM Myocard Spect Multi Rest/Stress-Str Appointment Date:12/16/2021 11:00:00 AM Scheduled Provider: [facility] Appointment Type:NM Myocar Spect Multi Rest/Stress - St Appointment Date:01/01/2022 02:00:00 PM Scheduled Provider:Breanna Gu CNP Location:[facility] Appointment Type: Open Future Scheduled Tests Laboratory* Fecal WBC Lactoferrin 10/30/21 * HgbA1c 07/29/21 * Enteric Panel by PCR 10/30/21 * Thyroid Stimulating Hormone 07/29/21 Radiology* NM Myocardial Spect Rest/Stress 1 Day 12/16/21 * Echo Transthoracic Complete 09/03/21 [facility] Evaluation + Plan note Future Appointments Appointment Date:01/01/2022 02:00:00 PM Scheduled Provider:Breanna Gu CNP Location:[facility] Appointment Type: Open Future Scheduled Tests Laboratory* Fecal WBC Lactoferrin 10/30/21 * HgbA1c 07/29/21 * Enteric Panel by PCR 10/30/21 * Thyroid Stimulating Hormone 07/29/21 Radiology* NM Myocardial Spect Rest/Stress 1 Day 12/16/21 * Echo Transthoracic Complete 09/03/21 [facility]* Diagnosis Other insomnia- Primary documented in this encounter [facility] Work Phone: evaluation note* Diagnosis Onset Date Resolution Status Diabetic foot infection acut e Hypertension acute Hypokalemia acute Hypomagnesemia acute [facility] Work Phone: evaluation note* Diagnosis Onset Date Resolution Status Abscess of toenail on left foot acute Cellulitis of left foot acut e [id number] acute Diabetic foot infection acut e Hypertension acute Hypokalemia acute Hypomagnesemia acute Hypophosphatemia acute Onychocryptosis acute Peripheral vascular disease acute Toe infection acute Toe pain, left acute Diabetes chronic Nicotine dependence chronic [facility] Work Phone: evaluation noteNo [place] Other evaluation note* Diagnosis Weakness of lower extremity, unspecified laterality- Primary Urinary incontinence, unspecified type Saddle anesthesia Disturbance of skin sensation Type 2 diabetes mellitus with diabetic neuropathy, unspecified whether half-way insulin use (HCC) [facility] Diagnosis Right knee pain, unspecified chronicity- Primary [facility]* Diagnosis Strain of right hamstring, initial encounter- Primary Strain of right knee, initial encounter Other specified diabetes mellitus with other specified complication, unspecified whether terminal manager insulin use (HCC) [facility]* Diagnosis Chest pain, unspecified type- Primary Chest pain, unspecified type Flank pain Abdominal pain, unspecified site Type 2 diabetes mellitus with other specified complication, unspecified whether terminal manager insulin use (HCC) Seizure (HCC) Other convulsions [...] abscess of face [facility] Diagnosis Non-recurrent acute suppurative otitis media of left ear without spontaneous rupture of tympanic membrane- Primary Type 2 diabetes mellitus with diabetic polyneuropathy, with long-term current use of insulin (HCC) Diabetic ulcer of right foot associated with type 2 diabetes mellitus, unspecified part of foot, unspecified ulcer stage ([facility]) Diabetic peripheral neuropathy (HCC) Type II or unspecified type diabetes mellitus with neurological manifestations, not stated as uncontrolled Hypertensive urgency Chronic obstructive pulmonary disease, unspecified COPD type (HCC) Chronic chest pain Unspecified chest pain S/P placement of cardiac pacemaker Hypothyroidism, unspecified type Seizures (HCC) Other convulsions Bipolar 1 disorder ([facility]) Insomnia, unspecified type Gastroesophageal reflux disease, unspecified [...] Encounter for vaccination [facility]* Diagnosis Left-sided weakness- Primary Visual loss, left eye Unqualified visual loss, one eye Acute effusion of left ear Diabetic ulcer of right foot associated with type 2 diabetes mellitus, unspecified part of foot, unspecified ulcer stage (HCC) Gastroesophageal reflux disease, unspecified whether esophagitis present Weight gain Other symptoms concerning nutrition, metabolism, and development [facility]* Diagnosis Bipolar 1 disorder (HCC)- Primary [facility]* Diagnosis Bipolar 1 disorder (HCC)- Primary Type 2 diabetes mellitus with diabetic polyneuropathy, with long-term current use of insulin (HCC) Seizures (HCC) Other convulsions Incontinence in female [facility]* Diagnosis Post traumatic stress disorder (PTSD)- Primary Bipolar 1 disorder (HCC) Insomnia, unspecified type Generalized anxiety disorder [facility] Diagnosis Type 2 diabetes mellitus with diabetic polyneuropathy, with long-term current use of insulin (HCC)- Primary Muscle spasms of both lower extremities [facility]* Diagnosis Muscle spasms of both lower extremities [facility]* Diagnosis Pain of left lower leg- Primary Pain in limb [facility] Diagnosis Muscle spasms of both lower extremities [facility]* Diagnosis Chronic pain syndrome- Primary Muscle [...] dependence without complication [facility]* Diagnosis Right foot ulcer, with fat layer exposed (HCC)- Primary [facility]* Diagnosis Chronic pain syndrome- Primary Muscle [...] polyneuropathy, with long-term current use of insulin ([facility]) Family history of pulmonary fibrosis documented in [...] insufficiency, unspecified [facility] Diagnosis Muscle spasms of both lower extremities Type 2 diabetes mellitus with diabetic polyneuropathy, with long-term current use of insulin ([facility]) [facility]* Diagnosis [...] polyneuropathy, with long-term current use of insulin ([facility]) [facility]* Diagnosis [...] polyneuropathy, with long-term current use of insulin ([facility]) [facility]* Diagnosis [...] Chronic obstructive pulmonary disease, unspecified COPD type ([facility]) Family history of pulmonary fibrosis Retinal hemorrhage [...] diabetes mellitus, limited to breakdown of skin ([facility]) Diabetic ulcer of left great toe (HCC) Seizures ([facility]) Other convulsions Type 2 diabetes mellitus with diabetic polyneuropathy, with long-term current use of insulin ([facility]) documented [facility]* Diagnosis Diabetic ulcer of right foot associated with type 2 diabetes mellitus, unspecified part of foot, unspecified ulcer stage ([facility])- Primary Primary hypertension Unspecified essential hypertension SOLO (acute kidney injury) ([facility]) Hypothyroidism, unspecified type Hyperlipidemia, unspecified hyperlipidemia type [...] or radiculitis, unspecified [facility]* Diagnosis Diabetic ulcer of left great toe (HCC)- Primary [facility]* Diagnosis Bipolar 1 disorder (HCC) Insomnia, unspecified type [...] Urinary incontinence, unspecified type Bipolar 1 disorder (HCC) Insomnia, unspecified type Gastroesophageal reflux disease, unspecified whether esophagitis present Family history of pulmonary fibrosis Vitamin B12 deficiency Other B-complex deficiencies Vitamin D deficiency Cigarette nicotine dependence without complication Need for vaccination Need for prophylactic vaccination and inoculation against unspecified single disease [facility]* Diagnosis DDD (degenerative disc disease), lumbar [...] Insomnia, unspecified type [facility]* Diagnosis Cellulitis of chin- Primary Cellulitis [...] or radiculitis, unspecified [facility]* Diagnosis Type II diabetes mellitus with neurological manifestations (CMS/HCC)- Primary Type II or unspecified type diabetes mellitus with neurological manifestations, not stated as uncontrolled Chronic foot ulcer with fat layer exposed, left (CMS/HCC) Cellulitis of left foot [facility] Cellulitis of chin- Primary Cellulitis [...] whether esophagitis present [facility]* Diagnosis Cellulitis of chin- Primary Cellulitis [...] Chronic pain syndrome [facility]* Diagnosis Cellulitis of chin- Primary Cellulitis [...] for health-related screening [facility]* Diagnosis Cellulitis of chin- Primary Cellulitis [...] pain- Primary Lumbago [facility]* Diagnosis Cellulitis of chin- Primary Cellulitis [...] unspecified chronicity- Primary [facility]* Diagnosis Cellulitis of chin- Primary Cellulitis [...] Chronic pain syndrome [facility] noteNo assessment information [facility] Work Phone: Evaluation note* Diagnosis Cellulitis of [...] Chronic pain syndrome [facility]* Diagnosis Cellulitis of chin- Primary Cellulitis [...] Chronic pain syndrome [facility]* Diagnosis Cellulitis of chin- Primary Cellulitis [...] Chronic pain syndrome [facility]* Diagnosis Cellulitis of chin- Primary Cellulitis [...] Chronic pain syndrome [facility]* Diagnosis Cellulitis of chin- Primary Cellulitis [...] Chronic pain syndrome [facility]* Diagnosis Hyperglycemia- Primary Other abnormal glucose [...] for appointment- Primary documented in this [facility]* Diagnosis Cellulitis of chin- Primary Cellulitis [...] Chronic pain syndrome [facility]* Diagnosis Sudden loss of vision- Primary Sudden visual loss HHS (hypothenar hammer syndrome) Hyperosmolar hyperglycemic state (HHS) ([facility]) Hyperosmolar hyperglycemic state (HHS) ([facility]) SOLO (acute kidney injury) HHS (hypothenar hammer syndrome) [facility] Diagnosis Cellulitis of chin- Primary Cellulitis and abscess of face Cellulitis Cellulitis and abscess of unspecified site Hyperglycemia Other abnormal glucose Severe sepsis ([facility]) Type 2 diabetes mellitus with left diabetic foot infection ([facility]) Diabetic infection of left foot ([facility]) Abscess of chin Cellulitis and abscess of face Hypertension Unspecified essential hypertension Bipolar 1 disorder ([facility]) Seizures ([facility]) Other convulsions Chronic pain syndrome DDD (degenerative disc disease), lumbar Degeneration of lumbar or lumbosacral intervertebral disc Lumbar radiculopathy Thoracic or lumbosacral neuritis or radiculitis, unspecified [facility]* Diagnosis Type 2 diabetes mellitus with hyperglycemia, with long-term current use of insulin ([facility])- Primary Encounter for dietary consultation Insulin long-term use ([facility]) Encounter for long-term (current) use of insulin Class 3 severe obesity due to excess calories with serious comorbidity and body mass index (BMI) of 45.0 to 49.9 in adult ([facility] [place] [place] Hyperlipemia, mixed Mixed hyperlipidemia Vitamin D deficiency Primary hypertension Unspecified essential hypertension Encounter for fitting or adjustment of insulin pump Fitting and adjustment of insulin pump [facility] Diagnosis Onset Date Resolution Status Admit Date BMI 50.0-59.9, adult acute Jan 9:44am Essential hypertension acute Se ptember 2024 9:44am Mixed hyperlipidemia acute Jan 9:44am Morbid obesity due to excess calories acute February 20, 2025 9:44am Nicotine use disorder acute Sep tember 2024 9:44am Noncompliance with medications acute February 20, 2025 9:44am Peripheral vascular disease acute February 20, 2025 9:44am Type 2 diabetes mellitus wit h circulatory disorder, with long-term current acute January 9:44am Bipolar 1 disorder chronic Septem 2024 9:44am [facility] Work Phone: Evaluation note* Diagnosis Cellulitis [...] disorder (HCC) Seizures (HCC) Other convulsions Lumbar stenosis with neurogenic claudication- Primary Left hand pain Pain in soft tissues of limb Fall, initial encounter Lumbar radiculopathy Thoracic or lumbosacral neuritis or radiculitis, unspecified Chronic pain syndrome Myofascial pain syndrome Unspecified myalgia and myositis Degeneration of intervertebral disc of lumbar region with discogenic back pain and lower extremity pain [facility] encounter [facility] Author Ezekiel Mathew [facility] August 20, 2022 3:56am Note Date/Time August 20, 2022 3:[address] [facility] [address] [place] [address] Hospitalist H&P Signed Patient: Addie Jean Baptiste MR#: [id number] : 1975 Acct:[id number] Age/Sex: 47 / F Adm Date: 3 Loc: Room: [address] [place] [address] Type: ADM INOo Attending Dr: Ezekiel Mathew [...] % (Auto) 27.3 % (.) 08/20/22 00:19 [place] % (Auto) 6.0 % (.) 08/20/22 00:19 Eos % (Auto) 1.3 % (.) 08/20/22 00:19 Baso % (Auto) 0.7 % (.) 08/20/22 00:19 Nucleat RBC Rel Count 0.0 /100 WBC (0-0.5) 08/20/22 00:19 Neut # (Auto) 5.5 x10E3/uL (1.8-7.7) 08/20/22 00:19 Lymph # (Auto) 2.3 x10E3/uL (1.00-4.8) 08/20/22 00:19 [place] # (Auto) 0.5 x10E3/uL (0.0-0.8) 08/20/22 00:19 [...] pH 6.5 (5.0-9.0) 08/20/22 01:07 Ur Specific [place] 1.017 (1.001-1.030) 08/20/22 01:07 Urine Protein 100 [...] She states that she does have a white mixing operator with Dr. Box. Since his partner [...] signed by Ezekiel Mathew, > 08/20/22 [id number] [facility] Work Phone: Hisgpyo general Narrative - Reported* Type Description Date [...] Chest Pain 07/2012 Hospitalization History [facility] 12/2013 Hospitalization History [facility] 2018 Hospitalization History Seizures [facility] Other Hisrtzj general Narrative - Reported* Type Description Date [...] Chest Pain 07/2012 Hospitalization History [facility] 12/2013 Hospitalization History [facility] 2018 Hospitalization History Seizures Hospitalization History toe infection 08/2022 [facility] Other Hospital course Narrative No data available for this section Sohail Fitzpatrick [facility] No data available for this section [facility] Attachments The following attachments cannot be sent through Care Everywhere. * Insomnia ([place]) * Video: Sleeping Better ([place]) * Video: Sleep and Your Health ([place]) * Video: When You're Not Sleeping Well ([place]) [facility]: Hospital Discharge instructions Additional Instructions Please follow up with your nurse practitioner re: blood sugars and Aicd evaluation. Call Dr. Romero's office to reschedule and to schedule a PST appointment before surgery.[facility] Work Phone: Hospital Discharge instructions* Attachments The following attachments cannot be sent through Care Everywhere. * Toe Amputation: Post-op ([place]) documented [facility] Discharge instructions Additional [...] any concerns. Thank you for choosing [facility] Urgent Care.[facility] Work Phone: InstructionsNot on filedocumented in this encounter [facility] Plan of care note* Visit Details Visit Type -SN [facility] t of [facility] Discipline -[facility] Problems Problem Start Date Status Goals Interventions Psychosocial Health Disciplines: [facility] 04/01/2023 Active 1 goal linked to scheduled/documented intervention 1 goal intervention scheduled/documented in this visit Neurological Disciplines: [facility] 04/01/2023 Active 1 goal linked to scheduled/documented intervention 1 goal intervention scheduled/documented in this visit Respiratory Disciplines: [facility] 04/01/2023 Active 1 goal linked to scheduled/documented intervention 1 goal intervention scheduled/documented in this visit Cardiac Disciplines: [facility] 04/01/2023 Active 1 goal linked to scheduled/documented intervention 1 goal intervention scheduled/documented in this visit Diabetes Disciplines: [facility] 04/01/2023 Active 1 goal linked to scheduled/documented intervention 1 goal intervention scheduled/documented in this visit Assess and Instruct Home Visit Disciplines: [facility] 04/01/2023 Active 1 goal linked to scheduled/documented intervention 3 goal interventions scheduled/documented in this visit Medication Management Disciplines: [facility] 04/01/2023 Active 1 goal linked to scheduled/documented intervention 1 goal intervention scheduled/documented in this visit Pain Management Disciplines: [facility] 04/01/2023 Active 1 goal linked to scheduled/documented intervention 1 goal intervention scheduled/documented in this visit Assess POC Synopsis Disciplines: [facility] 04/01/2023 Active 2 goals linked to scheduled/documented [...] Problem:Psychosocial Health Goal:Depression Completed Patient reports: see cutting department supervisor taught: patient Clinician instructed on: follow current [...] teach back 25% of instruction. Patient to knot picker cloth meds from pharmacy and follow medlist Assess [...] interest in teaching [facility]* Visit Details Visit Type -SN HH [facility] [place] t of Care Discipline -[facility] Problems Problem Start Date Status Goals Interventions Psychosocial Health Disciplines: [facility] 04/01/2023 Active 1 goal linked to scheduled/documented intervention 1 goal intervention scheduled/documented in this visit Neurological Disciplines: [facility] 04/01/2023 Active 1 goal linked to scheduled/documented intervention 1 goal intervention scheduled/documented in this visit Respiratory Disciplines: [facility] 04/01/2023 Active 1 goal linked to scheduled/documented intervention 1 goal intervention scheduled/documented in this visit Cardiac Disciplines: [facility] 04/01/2023 Active 1 goal linked to scheduled/documented intervention 1 goal intervention scheduled/documented in this visit Diabetes Disciplines: [facility] 04/01/2023 Active 1 goal linked to scheduled/documented intervention 1 goal intervention scheduled/documented in this visit Assess and Instruct Home Visit Disciplines: [facility] 04/01/2023 Active 1 goal linked to scheduled/documented intervention 3 goal interventions scheduled/documented in this visit Medication Management Disciplines: [facility] 04/01/2023 Active 1 goal linked to scheduled/documented intervention 1 goal intervention scheduled/documented in this visit Pain Management Disciplines: [facility] 04/01/2023 Active 1 goal linked to scheduled/documented intervention 1 goal intervention scheduled/documented in this visit Assess POC Synopsis Disciplines: [facility] 04/01/2023 Active 2 goals linked to scheduled/documented [...] Problem:Psychosocial Health Goal:Depression Completed Patient reports: see cutting department supervisor taught: patient Clinician instructed on: follow current [...] teach back 25% of instruction. Patient to knot picker cloth meds from pharmacy and follow medlist Assess [...] interest in [facility] Visit Details Visit Type -SN [facility] [place] t of Care Discipline -[facility] Problems Problem Start Date Status Goals Interventions Psychosocial Health Disciplines: [facility] 04/01/2023 Active 1 goal linked to scheduled/documented intervention 1 goal intervention scheduled/documented in this visit Neurological Disciplines: [facility] 04/01/2023 Active 1 goal linked to scheduled/documented intervention 1 goal intervention scheduled/documented in this visit Respiratory Disciplines: [facility] 04/01/2023 Active 1 goal linked to scheduled/documented intervention 1 goal intervention scheduled/documented in this visit Cardiac Disciplines: [facility] 04/01/2023 Active 1 goal linked to scheduled/documented intervention 1 goal intervention scheduled/documented in this visit Diabetes Disciplines: [facility] 04/01/2023 Active 1 goal linked to scheduled/documented intervention 1 goal intervention scheduled/documented in this visit Assess and Instruct Home Visit Disciplines: [facility] 04/01/2023 Active 1 goal linked to scheduled/documented intervention 3 goal interventions scheduled/documented in this visit Medication Management Disciplines: [facility] 04/01/2023 Active 1 goal linked to scheduled/documented intervention 1 goal intervention scheduled/documented in this visit Pain Management Disciplines: [facility] 04/01/2023 Active 1 goal linked to scheduled/documented intervention 1 goal intervention scheduled/documented in this visit Assess POC Synopsis Disciplines: [facility] 04/01/2023 Active 2 goals linked to scheduled/documented [...] Problem:Psychosocial Health Goal:Depression Completed Patient reports: see cutting department supervisor taught: patient Clinician instructed on: follow current [...] teach back 25% of instruction. Patient to knot picker cloth meds from pharmacy and follow medlist Assess [...] interest in teaching [facility] Visit Details Visit Type -SN HH [facility] [place] t of Care Discipline -[facility] Problems Problem Start Date Status Goals Interventions Psychosocial Health Disciplines: [facility] 04/01/2023 Active 1 goal linked to scheduled/documented intervention 1 goal intervention scheduled/documented in this visit Neurological Disciplines: [facility] 04/01/2023 Active 1 goal linked to scheduled/documented intervention 1 goal intervention scheduled/documented in this visit Respiratory Disciplines: [facility] 04/01/2023 Active 1 goal linked to scheduled/documented intervention 1 goal intervention scheduled/documented in this visit Cardiac Disciplines: [facility] 04/01/2023 Active 1 goal linked to scheduled/documented intervention 1 goal intervention scheduled/documented in this visit Diabetes Disciplines: [facility] 04/01/2023 Active 1 goal linked to scheduled/documented intervention 1 goal intervention scheduled/documented in this visit Assess and Instruct Home Visit Disciplines: [facility] 04/01/2023 Active 1 goal linked to scheduled/documented intervention 3 goal interventions scheduled/documented in this visit Medication Management Disciplines: [facility] 04/01/2023 Active 1 goal linked to scheduled/documented intervention 1 goal intervention scheduled/documented in this visit Pain Management Disciplines: [facility] 04/01/2023 Active 1 goal linked to scheduled/documented intervention 1 goal intervention scheduled/documented in this visit Assess POC Synopsis Disciplines: [facility] 04/01/2023 Active 2 goals linked to scheduled/documented [...] Problem:Psychosocial Health Goal:Depression Completed Patient reports: see cutting department supervisor taught: patient Clinician instructed on: follow current [...] Medication education completed today on medlist from [facility] medication(s). Patient/caregiver is able to teach back 25% of instruction. 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 Missed Visit Discipline -Home Health Aide Problems [...] Aide Goal:Hygiene/Safety [facility] Visit Details Visit Type -[employer] HH Routine Discipline -[facility] Problems Problem Start Date Status Goals Interventions Assess and Instruct Home Visit Disciplines: [facility] 04/01/2023 Active 1 goal linked to scheduled/documented intervention 4 goal interventions scheduled/documented in this visit Medication Management Disciplines: [facility] 04/01/2023 Active 1 goal linked to scheduled/documented intervention 1 goal intervention scheduled/documented in this visit Pain Management Disciplines: [facility] 04/01/2023 Active 1 goal linked to scheduled/documented [...] Management Goal:Pain Completed documented in this encounter [facility] Plan of care note* Visit Details Visit Type -[facility] Visi t Discipline -Home Health Aide Problems [...] Aide Goal:Hygiene/Safety Completed [facility] Visit Details Visit Type -[facility] Home Visi t Discipline -Home Health Aide Problems [...] Aide Goal:Hygiene/Safety Completed [facility] Visit Details 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 Visi t Discipline -Physical Therapy Problems [...] Type -SN HH Routine Vi sit Discipline -[facility] Problems Problem Start Date Status Goals Interventions Psychosocial Health Disciplines: [facility] 04/01/2023 Active 1 goal linked to scheduled/documented intervention 1 goal intervention scheduled/documented in this visit Neurological Disciplines: [facility] 04/01/2023 Active 1 goal linked to scheduled/documented intervention 1 goal intervention scheduled/documented in this visit Respiratory Disciplines: [facility] 04/01/2023 Active 1 goal linked to scheduled/documented intervention 1 goal intervention scheduled/documented in this visit Cardiac Disciplines: [facility] 04/01/2023 Active 1 goal linked to scheduled/documented intervention 1 goal intervention scheduled/documented in this visit Diabetes Disciplines: [facility] 04/01/2023 Active 1 goal linked to scheduled/documented intervention 1 goal intervention scheduled/documented in this visit Assess and Instruct Home Visit Disciplines: [facility] 04/01/2023 Active 1 goal linked to scheduled/documented intervention 4 goal interventions scheduled/documented in this visit Medication Management Disciplines: [facility] 04/01/2023 Active 1 goal linked to scheduled/documented intervention 1 goal intervention scheduled/documented in this visit Pain Management Disciplines: [facility] 04/01/2023 Active 1 goal linked to scheduled/documented intervention 1 goal intervention scheduled/documented in this visit Assess POC Synopsis Disciplines: [facility] 04/01/2023 Active 2 goals linked to scheduled/documented interventions 2 goal interventions scheduled/documented in this visit Wound Care and/or Skin Problems Disciplines: [facility] 04/15/2023 Active 1 goal linked to scheduled/documented [...] getting set up in dose packs from [facility]. 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 Missed Visit Discipline -Home Health Aide Problems [...] Aide Goal:Hygiene/Safety Scheduled documented in this encounter [facility] Plan of care note* Visit Details Visit Type -SN Missed Visit Discipline -[facility] Problems Problem Start Date Status Goals Interventions Assess and Instruct Home Visit Disciplines: [facility] 04/01/2023 Active 1 goal linked to scheduled/documented intervention 3 goal interventions scheduled/documented in this visit Medication Management Disciplines: [facility] 04/01/2023 Active 1 goal linked to scheduled/documented intervention 1 goal intervention scheduled/documented in this visit Pain Management Disciplines: [facility] 04/01/2023 Active 1 goal linked to scheduled/documented intervention 1 goal intervention scheduled/documented in this visit Wound Care and/or Skin Problems Disciplines: [facility] 04/15/2023 Active 1 goal linked to scheduled/documented [...] Problems Goal:Wound/Incision [facility] Visit Details 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 Visit Discipline -Physical Therapy Problems Problem [...] Care Plan Scheduled [facility] Visit Details [...] Care Plan Scheduled [facility] Visit Details Visit Type -SN HH [facility] Disc harge Discipline -[facility] Problems Problem Start Date Status Goals Interventions Assess and Instruct Home Visit Disciplines: [facility] 04/01/2023 Active 1 goal linked to scheduled/documented intervention 3 goal interventions scheduled/documented in this visit Medication Management Disciplines: [facility] 04/01/2023 Active 1 goal linked to scheduled/documented intervention 1 goal intervention scheduled/documented in this visit Pain Management Disciplines: [facility] 04/01/2023 Active 1 goal linked to scheduled/documented intervention 1 goal intervention scheduled/documented in this visit Wound Care and/or Skin Problems Disciplines: [facility] 04/15/2023 Active 1 goal linked to scheduled/documented [...] Problems Goal:Wound/Incision Scheduled documented in this encounter [facility] Plan of care note* Visit Details 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 documented in this encounter [...] ADMISSION (including facility stays and dates): [facility] 03/29-03/30/23 for: [...] by patient/caregiver: agreeable to all ordered services: SN,PT,OT,RESTAURANT HOURLY MANAGER Prior functional level: indpendent with adls/ questionable management of meds as none in home at time of admission/dependent for iadls Current functional level: needs assist with learning meds/disease process Fall Risk: MAHC-10 score 7, 4-10 Patient IS at risk for falls (a score of 6 or greater is a predictor of future falls) Medication Issues: no meds in home, patient agreed to knot picker cloth all meds from pharmacy on day of [...] [facility] Actions [facility] Clinical Sum alejandro Patient s goals for HomeCare: Be stronger What skill(s) will be provided by your discipline: ADL retraining, ther exercises, ther activity Rehab Potential: good HISTORY OF PRESENT ILLNESS LEADING UP TO HOME CARE ADMISSION (including facility stays and dates): [facility] 03/29-03/30/23 for: [...] non-billable discharge completed. [facility] No data available for this section [facility]Progress note Author Jeana Martini [facility] August 20, 2022 9:48am Note Date/Time August 20, 2022 9:[address] [facility] [address] [place] [address] Hospitalist Progress Note Signed Patient: Addie Jean Baptiste MR#: [id number] : 1975 Acct:[id number] Age/Sex: 47 / F Adm Date: 3 Loc: 3T Room: [address] [place] [address] Type: ADM INOo Attending Dr: Jeana Martini [...] place, time and person, morbidly obese HEENT: [place] conjunctiva and NL buccal mucosa Neck: Supple, [...] subcu injection. Documented By: Jeana Martini MD 08/20/2203 Signed By: <Electronically signed by Jeana Martini MD> 08/20/22 0948 [facility] Work Phone: Progress note Author Jeana Martini [facility] August 21, 2022 10:10am Note Date/Time August 21, 2022 10: 10am [facility] [address] [place] [address] Hospitalist Progress Note Signed Patient: Addie Jean Baptiste MR#: [id number] : 1975 Acct:[id number] Age/Sex: 47 / F Adm Date: 3 Loc: 3T Room: [address] [place] [address] Type: ADM IN Attending Dr: Jeana Martini [...] place, time and person, morbidly obese HEENT: [place] conjunctiva and NL buccal mucosa Neck: Supple, [...] [facility] Work Phone: Progress note Author Lawrence Kim [facility] August 21, 2022 11:22am Note Date/Time August 21, 2022 11: 22am [facility] [address] [place] [address] Infect. Disease Progress Note Signed Patient: Addie Jean Baptiste MR#: [id number] : 1975 Acct:[id number] Age/Sex: 47 / F Adm Date: 3 Loc: 3T Room: [address] [place] [address] Type: ADM IN Attending Dr: Jeana Martini [...] Mg/0.4 Ml Syringe) 40 mg SUBCUT DAILY@1000 [facility] Stop: 08/20/23 09:59 Last Admin: 08/21/22 09:01 Dose: 40 mg Ergocalciferol (Ergocalciferol 1,250 Mcg (50,000 Units) Capsule) 1,250 mcg PO Q7D [facility] Stop: 08/20/23 09:44 Last Admin: 08/20/22 14:44 Dose: Not Given Furosemide (Furosemide 20 Mg Tablet) 20 mg PO DAILY.8A [facility] Stop: 08/20/23 07:59 Last Admin: [...] 300 Units/3 Ml Insuln.Pen) 0 units SUBCUT TID.WM.HS [facility]; Protocol Stop: 08/20/23 11:59 Last Admin: 08/21/22 09:03 Dose: Not Given Levetiracetam (Levetiracetam 250 Mg Tablet) 750 mg PO BID [facility] Stop: 08/20/23 08:59 Last Admin: 08/21/22 08:59 Dose: 750 mg Levothyroxine Sodium (Levothyroxine 75 Mcg Tablet) 75 mcg PO DAILY@0630 [facility] Stop: 08/20/23 06:29 Last Admin: 08/21/22 06:09 Dose: 75 mcg Lisinopril (Lisinopril 40 Mg Tablet) 40 mg PO DAILY [facility] Stop: 08/20/23 08:59 Last Admin: 08/21/22 09:01 Dose: 40 mg Metformin HCl (Metformin 500 Mg Tablet) 1,000 mg PO BID.WITH.MEALS [facility] Stop: 08/20/23 07:59 Last Admin: 08/21/22 09:00 Dose: 1,000 mg Pantoprazole Sodium (Pantoprazole 40 Mg Tablet.Dr) 40 mg PO DAILY [facility] Stop: 08/21/23 08:59 Last Admin: 08/21/22 09:01 Dose: 40 mg Pregabalin (Pregabalin 150 Mg Capsule) [address] [facility] Stop: 02/16/23 03:44 Last Admin: 08/20/22 21:12 Dose: 150 mg Quetiapine Fumarate (Quetiapine Fumarate 200 Mg Tablet) 800 mg PO HS [facility] Stop: 08/20/23 03:59 Last Admin: [...] toe itself. Documented By: Lawrence Kim MD 08/21/229 Signed By: <Electronically signed by MD Lawernce Kim> 08/21/22 1122 [facility] Work Phone: Progress note Author Jeana Martini [facility] August 22, 2022 9:54am Note Date/Time August 22, 2022 9:[address] [facility] [address] [place] [address] Hospitalist Progress Note Signed Patient: Addie Jean Baptiste MR#: [id number] : 1975 Acct:[id number] Age/Sex: 47 / F Adm Date: 3 Loc: 3T Room: [address] [place] [address] Type: ADM IN Attending Dr: Jeana Martini [...] place, time and person, morbidly obese HEENT: [place] conjunctiva and NL buccal mucosa Neck: Supple, [...] subcu injection. Documented By: Jeana Martini MD 08/22/22952 Signed By: <Electronically signed by Jeana Martini MD> 08/22/22 09 [facility] Work Phone: Progress note Author Shameka Romero [facility] August 22, 2022 9:56am Note Date/Time August 22, 2022 9:[address] [facility] [address] [place] [address] Vascular Surgery Progress Note Signed Patient: Addie Jean Baptiste MR#: [id number] : 1975 Acct:[id number] Age/Sex: 47 / F Adm Date: 3 Loc: 3T Room: [address] [place] [address] Type: ADM IN Attending Dr: Jeana Martini [...] signed by Shameka Romero MD> 08/22/22 0956 [facility] Work Phone: Regpap for referral (narrative)* Consultation (Routine) - New Request Specialty Diagnoses / Procedures Referred By Richa t Referred To Contact [facility] Primary [facility] Sports Diagnoses Pain of left lower leg Tonia Ridley APRN-[employer] ACTIVITIES CLERK [address] [place] [id number] Referral ID Status Reason Start Date Expiration Date V isits Requested Visits Authorized [id number] New Request 08/26/2023 09/19/2024 1 1 [facility] (narrative)No reason for referral information availableK[facility] Work Phone: Reason for visit Narrativewondering about R/S for [place] Other Reason for visit Narrative* Auth/Cert Specialty Diagnoses / Procedures Referred By Contmary lou t Referred To Contact Diagnoses Sudden vision loss Vanessa Vargas MD [address] [facility] [address] [place] [address] Phone: tel: fax:[phone] Referral ID Status Reason Start Date Expiration Date Visits Re quested Visits Authorized [id number] 1 1 [facility] Assessments Diagnosis Acute exacerbation of chroni [...] (HCC) Other convulsions Summary Purpose Family History Relationship Condition Age at Onset Recorded Date/T [...] history of thyroid disease Unknown Advance Directives Documents on File Type Date Recorded Patient A Operator Expl anation Advance Directives and Livin [...] Documents on File Type Date Recorded Patient A Operator Expl anation Advance Directives and Livin g Will 07/08/2023 8:24 PM Documents on File Type Date Recorded Patient A Operator Expl anation Advance Directives and Livin [...] Documents on File Type Date Recorded Patient A Operator Expl anation Advance Directives and Livin g Will 11/09/2023 8:44 PM Documents on File Type Date Recorded Patient A Operator Expl anation Advance Directives and Livin [...] Date/ Time Living Will No July 05, 2 015 12:07pm Health Care POA No July 05, 2 015 12:07pm DNR CC/CCA Form Complete No 2014 12:07pm Organ Donor No July 05, 015 12:07pm Date Activated Date Inactivated Comments 12/03/2024 7:40 AM 12/05/2024 7:18 PM Date Activated Date Inactivated Comments 03/06/2022 2:06 AM 03/11/2022 9:21 PM Date Activated Date Inactivated Comments 12/03/2024 7:40 AM 12/05/2024 7:18 PM Date Activated Date Inactivated Comments 03/06/2022 2:06 AM 03/11/2022 9:21 PM Hospital Course Note Send Summary: Discharge [facility] Providers: Provider RoleProvider Name Rosalia Mendez Samuel E AttendingQuan, Kara Note Recipients: Rosalia Noble MD - [id number] [preferred] Italo Headley MD - [id number] [] Discharge: Summary: Admission Date: .06-Apr-2019 06:38:00 Discharge Date: 07-Apr-2019 Attending Physician at Discharge: Rosalia Noble Admission Reason: sustained ventricular tachycardia Final Discharge Diagnoses: sustained ventricular tachycardia dual chamber ICD Procedures: electrophysiology studies and dual chamber PPM upgrade to dual chamber ICD Condition at Discharge: Satisfactory Disposition at Discharge: .Home Vital Signs: T PRBPSpO2 [id number]% Date/Time04/07 8: 8: 8: 8: 8:00 Range(36.2C [...] Log into your personal health record on [email or web address] and enter A739 in the Education box to learn more about Diabetes Foot Health: Care Instructions. Current as of: January 23, 2020 Content Version: 12.7 [employer]. Care instructions adapted under license by your healthcare professional. If you have questions about a medical condition or this instruction, always ask your healthcare professional. [employer] disclaims any warranty or liability for your [...] so she went to Emergency Department in [place], subsequently came to [facility] and was admitted for cellulitis of the [...] mg by mouth nightly States takes at 2029 at home every night . QUEtiapine (SEROQUEL) [...] at pharmacy - uses [facility] in [place] . FLUoxetine (PROZAC) 40 MG capsule Take [...] file Gets together: Not on file Attends christian service: Not on file Active member of [...] with #316 blade. Nail border removed with nail galvanizer and hemostats under digital anesthesia. All necrotic [...] If there are any questions, please call. [phone]. * Nikko Wasserman, PT - 06/04/2020 4:00 [...] level Prior Level of Function Level of [place]: Independent with ADLs and functional transfers, Independent [...] 10.2-worsened since 06/28/2019. She reports that her track repairer is Dr Resendez-office number [phone]. Spoke with office staff this am and [...] pt and pt has notbeen seen by track repairer in almost 1 year. MD did refill [...] Infusions: sodium chloride 0.9 % Stopped (06/03/20 7729) sodium chloride 0.9 % 100 mL/hr (06/04/20 [...] n left foot Cellulitis of left foot [id number] Diabetic foot infection Hypertension Hypokalemia Hypomagnesemia Hypophosphatemia Onychocryptosis Peripheral vascular disease Toe infection Toe pain, left Diabetes Nicotine dependence Chief Complaint L foot pain PAD w/left great toe ulcer Reason for Visit Abscess of toenail o n left foot Cellulitis of left foot [id number] Diabetic foot infection Hypertension Hypokalemia Hypomagnesemia Hypophosphatemia Onychocryptosis Peripheral vascular disease Toe infection Toe pain, left Diabetes Nicotine dependence Chief Complaint Admit Date FINGER LAC August 29, 2024 1:44 pm Chief Complaint Admit Date Unknown December 28, 2024 1:4 4pm Chief Complaint Admit Date Unknown December 28, 2024 1:4 4pm est new patient February 20, 2025 9:44am Reason for Visit Admit Date BMI 50.0-59.9, adult February 20 9:44am Essential hypertension February 20, 2 025 9:44am Mixed hyperlipidemia February 20 9:44am Morbid obesity due to excess calories Se ptember 2024 9:44am Nicotine use disorder February 20 9:44am Noncompliance with medications February 20, 2025 9:44am Peripheral vascular disease February 202024 9:44am Type 2 diabetes mellitus wit h circulatory disorder, with long-term current February 20, 2025 9:44am Bipolar 1 disorder February 20, 2025 9:44am Reason for Referral Specialty Diagnoses / Procedures Referred By Contac t Referred To Contact Neurology Diagnoses Chronic nonintractable headache, unspecified headache type Stephany Pelayo PA-C [address] [address] Virgen Campos MD [address] [address] Referral ID Status Reason Start Date Expiration Date V isits Requested Visits Authorized [id number] Authorized 02/11/2024 02/10/2025 1 1 Specialty Diagnoses / Procedures Referred By Contac t Referred To Contact Diagnoses Chronic obstructive pulmonary disease, unspecified COPD type (HCC) Stephany Pelayo PA-C [address] [address] Referral ID Status Reason Start Date Expiration Date Visits Re quested Visits Authorized [id number] Closed 1 1 Specialty Diagnoses / Procedures Referred By Contac t Referred To Contact Rehabilitation Diagnoses Chronic pain syndrome DDD (degenerative disc disease), lumbar Lumbar radiculopathy Jim Velez, [address] [place] [address] Referral ID Status Reason Start Date Expiration Date V isits Requested Visits Authorized [id number] Authorized 12/08/2023 12/07/2024 1 1 Specialty Diagnoses / Procedures Referred By Contac t Referred To Contact Diagnoses Type 2 diabetes mellitus with diabetic polyneuropathy, with long-term current use of insulin (HCC) Sahara Sanchez MD [address] [place] [address] Referral ID Status Reason Start Date Expiration Date V isits Requested Visits Authorized [id number] Pending Review 1 1 Specialty Diagnoses / Procedures Referred By Contac t Referred To Contact Diagnoses Lacunar stroke ([facility]) Procedures Thrombotic Risk Screen Virgen Campos MD [address] [place] [address] Referral ID Status Reason Start Date Expiration Date V isits Requested Visits Authorized [id number] Pending Review 09/16/2023 09/15/2024 1 1 Specialty Diagnoses / Procedures Referred By Contac t Referred To Contact Otolaryngology Diagnoses Hearing loss of left ear, unspecified hearing loss type Virgen Campos MD [address] [place] [address] [address] [facility] [place] [id number] [address] Referral ID Status Reason Start Date Expiration Date Visits Requested Visits Authorized [id number] Authorized Specialty Services Required/Pat ient's Best Interest 09/16/2023 09/15/2024 1 1 Specialty Diagnoses / Procedures Referred By Contac t Referred To Contact Neurology Diagnoses Seizure (HCC) Procedures EEG (Standard) Virgen Campos MD [address] [place] [address] Referral ID Status Reason Start Date Expiration Date V isits Requested Visits Authorized [id number] Pending Review 09/16/2023 09/15/2024 1 1 Specialty Diagnoses / Procedures Referred By Contac t Referred To Contact Pulmonary Disease Diagnoses Subacute cough Family history of pulmonary fibrosis Stephany Pelayo PA-C [address] [place] [address] Neida Dominguez MD [address] [place] [address] Referral ID Status Reason Start Date Expiration Date Visits Requested Visits Authorized [id number] Authorized Patient Preference 10/29/2023 10/28/2024 1 1 Specialty Diagnoses / Procedures Referred By Contac t Referred To Contact Radiology Diagnoses RUQ abdominal pain Procedures US Abdomen Complete Stephany Pelayo PA-C [address] [place] [address] [address] Referral ID Status Reason Start Date Expiration Date V isits Requested Visits Authorized [id number] Authorized 10/13/2023 10/12/2024 1 1 Specialty Diagnoses / Procedures Referred By Contac t Referred To Contact Pulmonology Diagnoses Subacute cough Family history of pulmonary fibrosis Stephany Pelayo PA-C [address] [place] [address] Merrick Almanza MD [address] [place] [address] Referral ID Status Reason Start Date Expiration Date Visits Re quested Visits Authorized [id number] Closed 10/13/2023 10/12/2024 1 1 Specialty Diagnoses / Procedures Referred By Contac t Referred To Contact Urology Diagnoses Incontinence in female Harris Bhat MD [address] [place] [address] Map [facility] [address] [address] Referral ID Status Reason Start Date Expiration Date V isits Requested Visits Authorized [id number] Authorized 06/22/2023 06/21/2024 1 1 Specialty Diagnoses / Procedures Referred By Contac t Referred To Contact Home Health Services Diagnoses Diabetic ulcer of right foot associated with type 2 diabetes mellitus, unspecified part of foot, unspecified ulcer stage (HCC) Left-sided weakness Visual loss, left eye Stephany Pelayo PA-C [address] [place] [address] Referral ID Status Reason Start Date Expiration Date Visits Requested Visits Authorized [id number] Pending Review Patient Preference 05/14/2024 1 1 Specialty Diagnoses / Procedures Referred By Contac t Referred To Contact Home Health Services Diagnoses Generalized weakness Diabetic ulcer of right foot associated with type 2 diabetes mellitus, unspecified part of foot, unspecified ulcer stage (HCC) Muscle spasms of both lower extremities Stephany Pelayo PA-C [address] [place] [address] Referral ID Status Reason Start Date Expiration Date Visits Requested Visits Authorized [id number] Pending Review Specialty Services Required/Pat ient's Best Interest 3 05/05/2024 1 1 Specialty Diagnoses / Procedures Referred By Contac t Referred To Contact Obstetrics/Gynecology Diagnoses Screening for cervical cancer Stephany Pelayo PA-C [address] [address] Timothy Banegas MD [address] [place] [address] Referral ID Status Reason Start Date Expiration Date Visits Requested Visits Authorized [id number] Closed Patient Preference 05/06/2023 05/05/2024 1 1 Specialty Diagnoses / Procedures Referred By Contac t Referred To Contact Ophthalmology Diagnoses Type 2 diabetes mellitus with diabetic polyneuropathy, with long-term current use of insulin (HCC) Stephany Pelayo PA-C [address] [address] [facility] [address] [place] [address] Referral ID Status Reason Start Date Expiration Date V isits Requested Visits Authorized [id number] Authorized 05/06/2023 05/05/2024 1 1 Specialty Diagnoses / Procedures Referred By Contac t Referred To Contact Radiology Diagnoses Encounter for screening mammogram for malignant neoplasm of breast Procedures Mammography Screening [place] Bilateral Stephany Pelayo PA-C [address] [place] [address] Central Scheduling [address] [place] [address] Referral ID Status Reason Start Date Expiration Date V isits Requested Visits Authorized [id number] Authorized 05/06/2023 05/05/2024 1 1 Specialty Diagnoses / Procedures Referred By Contac t Referred To Contact Cardiology Diagnoses S/P placement of cardiac pacemaker Chronic chest pain Stephany Pelayo PA-C [address] [place] [address] [facility] 1 [address] [place] [address] Referral ID Status Reason Start Date Expiration Date V isits Requested Visits Authorized [id number] Authorized 05/06/2023 05/05/2024 1 1 Specialty Diagnoses / Procedures Referred By Contac t Referred To Contact Endocrinology Diagnoses Type 2 diabetes mellitus with diabetic polyneuropathy, with long-term current use of insulin (HCC) Diabetic peripheral neuropathy (HCC) Stephany Pelayo PA-C [address] [place] [address] [facility] [address] [place] [address] Referral ID Status Reason Start Date Expiration Date V isits Requested Visits Authorized [id number] Authorized 05/06/2023 05/05/2024 1 1 Specialty Diagnoses / Procedures Referred By Contac t Referred To Contact Stephany Pelayo PA-C [address] [place] [address] Referral ID Status Reason Start Date Expiration Date Visits Re quested Visits Authorized [id number] Closed 1 1 Specialty Diagnoses / Procedures Referred By Contac t Referred To Contact Psychiatry Diagnoses Bipolar 1 disorder (HCC) Insomnia, unspecified type Stephany Pelayo PA-C [address] [place] [address] [facility] [address] [place] [address] Referral ID Status Reason Start Date Expiration Date V isits Requested Visits Authorized [id number] Authorized 05/06/2023 05/05/2024 1 1 Specialty Diagnoses [...] Cellulitis of chin Harshad Rizzo MD [address] [place] [address] Referral ID Status Reason Start Date Expiration Date Visits Requested Visits Authorized [id number] Authorized Patient Preference 03/31/2023 03/30/2024 1 1 Specialty Diagnoses / Procedures Referred By Contac t Referred To Contact Care Management Diagnoses Chest pain, moderate coronary artery risk Diabetic peripheral neuropathy (HCC) Seizure disorder (HCC) Morbid obesity (HCC) Harshad Rizzo MD [address] [place] [address] [facility] [address] [facility] [place] [address] Referral ID Status Reason Start Date Expiration Date V isits Requested Visits Authorized [id number] Authorized 03/30/2023 03/29/2024 1 1 Specialty Diagnoses / Procedures Referred By Contmary lou t Referred To Contact Endocrinology Diagnoses Type 2 diabetes mellitus with other specified complication, unspecified whether terminal manager insulin use (HCC) Harshad Rizzo MD [address] [place] [address] Sahara Sanchez MD [address] [place] [address] Referral ID Status Reason Start Date Expiration Date Visits Requested Visits Authorized [id number] Pending Review Specialty Services Required/Pat ient's Best [...] xray results. Radiology said they would call warren. Formatting of this note may be different from the original. ED PROVIDER NOTE [facility] EMERGENCY DEPARTMENT NAME: Addie Jean Baptiste AGE: 42 y.o. : 1975 VISIT DATE: 06/26/2017 CSN: [id number] PCP: Cem Mario DO Clinical Impression: SNOMED CT(R) 1. Acute exacerbation of chronic low back pain CHRONIC LOW BACK PAIN Follow-up Information 1. Cem Mario DO. Specialty: Family Medicine [address] [place] [address] Contact information for after-discharge care Follow-up information [...] reports that she was eating dinner at [employer] and when she was leaving she lifted [...] BP Temp Pulse Resp SpO2 Height Weight 06/26/172126 (!) 122/105 - 91 17 100 % [...] (Standard) Final Result No acute bony abnormalities. [facility] Workstation ID: [id number] [id number] Lumbar Spine 2-3 Views (Standard) (Results Pending) Procedures . New Prescriptions CYCLOBENZAPRINE (FLEXERIL) 10 MG TABLET Take 1 (one) tablet (10 mg total) by mouth 3 (three) times a day as needed for muscle spasms. Michi San DO, FACEP Attending Physician [facility] Emergency Department Michi San DO 06/26/17 0995 Pt back from radiology Pt to radiology Report received from JAEL Franks. Pt resting on cot, texting. Pt tearful, states that her pain is 10/10 between her shoulders and down her back. Denies needs at this time, call light within reach. Report given to: Rita ELDER Pt states she was at [employer] eating and then upon leaving went to [...] This RN was notified by pharmacist that [facility] does not carry vraylar and could [...] section and content) DATE CREATED AUTHOR 11/12/2017 [facility] DATE CREATED AUTHOR AUTHOR'S ORGANIZ ATION 11/13/2017 [facility] DATE CREATED AUTHOR AUTHOR'S ORGANIZ ATION 07/13/2018 [facility] DATE CREATED AUTHOR AUTHOR'S ORGANIZ ATION 04/12/2019 [facility] DATE CREATED AUTHOR AUTHOR'S ORGANIZ ATION 08/22/2019 [facility] DATE CREATED AUTHOR AUTHOR'S ORGANIZ ATION 12/12/2021 [facility] DATE CREATED AUTHOR AUTHOR'S ORGANIZ ATION 10/08/2022 [facility] DATE CREATED AUTHOR AUTHOR'S ORGANIZ ATION 11/05/2022 [facility] DATE CREATED AUTHOR AUTHOR'S ORGANIZ ATION 02/26/2023 [facility] DATE CREATED AUTHOR AUTHOR'S ORGANIZ ATION 04/01/2023 [facility] DATE CREATED AUTHOR AUTHOR'S ORGANIZ ATION 05/22/2023 [facility] Professional Services DATE CREATED AUTHOR AUTHOR'S ORGANIZ ATION 03/26/2024 [facility] DATE CREATED AUTHOR AUTHOR'S ORGANIZ ATION 08/05/2024 [facility] DATE CREATED AUTHOR AUTHOR'S ORGANIZ ATION 09/04/2024 [facility] DATE CREATED AUTHOR AUTHOR'S ORGANIZ ATION 10/21/2024 [facility] DATE CREATED AUTHOR AUTHOR'S ORGANIZ ATION 11/13/2024 [facility] DATE CREATED AUTHOR AUTHOR'S ORGANIZ ATION 11/19/2024 [facility] DATE CREATED AUTHOR AUTHOR'S ORGANIZ ATION 12/07/2024 [facility] DATE CREATED AUTHOR AUTHOR'S ORGANIZ ATION 12/11/2024 [facility] DATE CREATED AUTHOR AUTHOR'S ORGANIZ ATION 12/31/2024 [facility] DATE CREATED AUTHOR AUTHOR'S ORGANIZ ATION 01/11/2025 [facility] DATE CREATED AUTHOR AUTHOR'S ORGANIZ ATION 01/17/2025 [facility] DATE CREATED AUTHOR AUTHOR'S ORGANIZ ATION 02/04/2025 [facility] DATE CREATED AUTHOR AUTHOR'S ORGANIZ ATION 02/05/2025 [facility] DATE CREATED AUTHOR AUTHOR'S ORGANIZ ATION 02/27/2025 [facility] DATE CREATED AUTHOR AUTHOR'S ORGANIZ ATION 02/28/2025 [facility] Reason for Visit (unrecogniz ed section and content) Reason Comments Weakness Specialty Diagnoses / Procedures Referred By Contac t Referred To Contact Referral ID Status Reason Start Date Expiration Date Visits Re quested Visits Authorized [id number] 1 1 Reason Comments Diabetes Reason Comments Wound Infection Status Reason Specialty Diagnoses / Procedures Referre d By Contact Referred To Contact Diagnoses Diabetic foot infection (HCC) Type 2 diabetes mellitus with left diabetic foot infection (HCC) Diabetic infection of left foot (HCC) Reason Comments Seizures 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 Reason Comments Chart Transfer from [employer] for MRI Reason Comments Pain NEW PATIENTRT KNEE P AIN, fell 01/19/23 went to [facility] Reason Comments Chest Pain Specialty Diagnoses / Procedures Referred By Contac t Referred To Contact Diagnoses Flank pain Chest pain, unspecified type Referral ID Status Reason Start Date Expiration Date Visits Re quested Visits Authorized [id number] 1 1 Reason Comments Chest Pain Specialty Diagnoses / Procedures Referred By Contac t Referred To Contact Diagnoses Chest pain Chest pain, moderate coronary artery risk Referral ID Status Reason Start Date Expiration Date Visits Re quested Visits Authorized [id number] 1 1 Specialty Diagnoses / Procedures Referred By Richa t Referred To Contact Reason Comments Establish [...] Visit Specialty Diagnoses / Procedures Referred By Richa t Referred To Contact Psychiatry Diagnoses Bipolar 1 disorder (HCC) Insomnia, unspecified type Stephany Pelayo PA-C [address] [place] [address] [facility] [address] [place] [address] Referral ID Status Reason Start Date Expiration Date Visits Re quested Visits Authorized [id number] Closed 05/06/2023 05/05/2024 1 1 Reason Onset [...] Referred By Richa t Referred To Contact Ophthalmology Diagnoses Vitreous hemorrhage of left eye Diabetic retinopathy associated with type 2 diabetes mellitus, macular edema presence unspecified, unspecified laterality, unspecified retinopathy severity Jessica Puentes MD [address] [place] [address] [facility] [address] [place] [address] Referral ID Status Reason Start Date Expiration Date V isits Requested Visits Authorized [id number] New Request 11/09/2023 12/03/2024 1 1 Reason Onset Date Comments Medication Refill 11/12/2023 Reason Comments Establish Care seizures Specialty Diagnoses / Procedures Referred By Contac t Referred To Contact Neurology Diagnoses Seizures (HCC) Fab Head MD [address] [place] [address] Virgen Campos MD [address] [place] [address] Referral ID Status Reason Start Date Expiration Date V isits Requested Visits Authorized [id number] Pending Review 01/14/2023 01/15/2024 1 1 Reason Onset Date Comments Medication Refill 12/02/2023 Reason Comments Med Change Request Reason Comments Diabetes Mellitus Gap Closure (Health Maintenance) There a re no preventive care reminders to display for this patient. Specialty Diagnoses / Procedures Referred By Contac t Referred To Contact Endocrinology Diagnoses Type 2 diabetes mellitus with diabetic polyneuropathy, with long-term current use of insulin ([facility]) Diabetic peripheral neuropathy ([facility]) Stephany Pelayo PA-C [address] [address] [facility] [address] [place] [address] Referral ID Status Reason Start Date Expiration Date Visits Re quested Visits Authorized [id number] Closed 05/06/2023 05/05/2024 1 1 Reason Onset Date Comments Medication Refill 12/07/2023 Reason Comments Pain VAS= 9/10 ANIA CONSENT YES Back Pain Thoracic to lumbar p ain Specialty Diagnoses / Procedures Referred By Contac t Referred To Contact Pain Medicine Diagnoses Chronic pain syndrome Muscle spasms of both lower extremities Stephany Pelayo PA-C [address] [address] [facility] [address] [place] [address] Referral ID Status Reason Start Date Expiration Date Visits Re quested Visits Authorized [id number] Closed 09/03/2023 09/02/2024 1 1 Reason Onset [...] Expiration Date Visits Re quested Visits Authorized [id number] 1 1 Reason Onset Date Comments Care [...] Medication Refill 03/22/2024 Reason Onset Date Comments [facility] 03/30/2024 Reason Comments Toe Pain Specialty Diagnoses / Procedures Referred By Richa t Referred To Contact Diagnoses Elevated troponin SIRS (systemic inflammatory response syndrome) (HCC) Toe osteomyelitis (HCC) Diabetes mellitus due to underlying condition with hyperglycemia, with long-term current use of insulin (HCC) Osteomyelitis of great toe (HCC) Referral ID Status Reason Start Date Expiration Date Visits Re quested Visits Authorized [id number] 1 1 Reason Onset Date Comments Medication Refill 04/12/2024 Reason Onset Date Comments Medication Refill 04/28/2024 Reason Comments Post-op Problem Toe Pain Specialty Diagnoses / Procedures Referred By Richa t Referred To Contact Diagnoses Diabetic foot infection (HCC) Postoperative infection, unspecified type, initial encounter Referral ID Status Reason Start Date Expiration Date Visits Re quested Visits Authorized [id number] 1 1 Reason Comments Pain VAS 8/10 [...] Referred By Richa ruff Referred To Contact Endocrinology, Diabetes & Metabolism Diagnoses Type 2 diabetes mellitus with diabetic polyneuropathy, with long-term current use of insulin Stephany Pelayo PA-C Phone: tel: fax: U [facility] [address] [place] [address] Referral ID Status Reason Start Date Expiration Date V isits Requested Visits Authorized [id number] Pending Review 07/19/2024 08/13/2025 1 1 Reason Onset Date Comments Medication Refill 11/21/2024 Reason Onset Date Comments Medication Refill 12/19/2024 Reason Comments Diabetes 3 YEARS Reason Comments Pain Follow-up Back Pain Vas 9/10 Reason Onset Date Comments Power scooter DME 02/24/2025 Bridger Garner MD - 06/04/2020 1:07 PM EST H&P Notes (unrecognized sect ion and content) HISTORY AND PHYSICAL Patient Name: Addie Organ Admit Date: [id number] MR #: [id number] : 1975 Physicians: Provider Not in System [...] PT/OT Hibiclens Lactate elevated, will monitor Seizures ([facility]) Assessment & Plan Continue home keedmond depakote Bipolar 1 disorder ([facility]) Assessment & Plan No evidence of denys at this time Continue home seroquel, bussophy, vraylar Hypertension Assessment & Plan Continue home lopressor Diabetes mellitus type II, uncontrolled ([facility]) Assessment & Plan A1c 10.2% On insulin [...] resistant Staphylococcus aureus) Pacemaker Seizures (HCC) Stroke ([facility]) Past Surgical History: Procedure Laterality Date CHOLECYSTECTOMY [...] file Gets together: Not on file Attends christian service: Not on file Active member of [...] at pharmacy - uses [facility] [place] . FLUoxetine (PROZAC) 40 MG capsule Take [...] Mikel Bentley RN - 06/03/2020 3:51 PM ESTHyde, Ko Parr MD - 06/03/2020 3:17 PM Mikel Bentley RN - 06/03/2020 3:04 PM EST ED Notes (unrecognized secti on and content) 3N updated, 316 room assigned. 3N called, medsurg bed assignment will be made after covid status. Report given to JAEL Landaverde. All questions answered to the best of this rn ability, report accepted. Associated Order(s): Critical Care ED PROVIDER NOTE [facility] EMERGENCY DEPARTMENT NAME: Addie Organ AGE: 45 y.o. : 1975 VISIT DATE: 06/03/2020 CSN: [id number] PCP: Provider Not in System Chief Complaint Patient presents with Wound Infection For the past week her left first toe has been inflamed. Two days ago she became aware of some serous drainage from her toe. On 06/02/2020 she was seen at [facility], and was started on Keflex at [...] file Gets together: Not on file Attends christian service: Not on file Active member of [...] injuries to toe. Pt verbalizes was at [facility] yesterday and they did nothing for me . Pt did acknowledge she got antibiotics. Pt in nad Called [facility] [phone] to see if they could fax me records from yesterdays ER visit, talked to Emma states she will fax the records documented in this encounter Care Team (unrecognized sect ion and content) Team Status: Active Member Role Status Dates [facility] [place] SECRETARY-C Primary Care Provider Active Team Status: Inactive Member Role Status Dates [facility] [place] SECRETARY-C Primary Care Provider Active Jacob Farfan DO Emergency Provider Active Ezekiel Mathew , DO Admit Provider Active Jeana Martini MD Attending Provider Active Lawrence Kim MD Other Provider Active Swapnil Castillo DPM Other Provider Active Shameka Romero MD Other Provider Active Claims Adjudicator Relationship Specialty Start Date End Date Cem Mario DO [address] [place] [address] PCP - General Family Medicine 05/28/15 Team Status: Active Member Role Status Dates [facility] W [place] SECRETARY-C Primary Care Provider Active Jacob Farfan DO Emergency Provider Active Ezekiel Mathew , Admit Provider, Attending Zulma yoo Active Team Status: Inactive Member Role Status Dates [facility] W [place] SECRETARY-C Primary Care Provider Active Jacob Farfan DO Emergency Provider Active Ezekiel Mathew , DO Admit Provider Active Lawrence Kim MD Other Provider Active Swapnil Castillo DPM Other Provider Active Shameka Romero MD Other Provider Active Jeana Martini MD Attending Provider Active Team Status: Inactive Member Role Status Dates Laurent Franco , SECRETARY-C Primary Care Provider Active Shameka Romero MD Attending Provider Active Claims Adjudicator Relationship Specialty Start Date End Date System, Provider Not In PCP - General 01/12/23 Claims Adjudicator Relationship Specialty Start Date End Date System, Provider Not In PCP - General 01/12/23 Claims Adjudicator Relationship Specialty Start Date End Date System, Provider Not In PCP - General 01/12/23 Claims Adjudicator Relationship Specialty Start Date End Date System, Provider Not In PCP - General 01/12/23 03/29/23 Enrique Hebert DO [address] [place] [address] PCP - General Primary Care 03/30/23 Claims Adjudicator Relationship Specialty Start Date End Date Enrique Hebert DO [address] [place] [address] PCP - General Primary Care 03/30/23 Claims Adjudicator Relationship Specialty Start Date End Date Enrique Hebert DO [address] [place] [address] PCP - General Primary Care 03/30/23 Claims Adjudicator Relationship Specialty Start Date End Date Enrique Hebert DO [address] [place] [address] PCP - General Primary Care 03/30/23 Claims Adjudicator Relationship Specialty Start Date End Date Enrique Hebert DO [address] [place] [address] PCP - General Primary Care 03/30/23 Claims Adjudicator Relationship Specialty Start Date End Date Enrique Hebert DO [address] [place] [address] PCP - General Primary Care 03/30/23 Claims Adjudicator Relationship Specialty Start Date End Date Anup Enrique, DO [address] [place] [address] PCP - General Primary Care 03/30/23 Claims Adjudicator Relationship Specialty Start Date End Date Anup Enrique [address] [place] [address] PCP - General Primary Care 03/30/23 Claims Adjudicator Relationship Specialty Start Date End Date Enrique Hebert DO [address] [place] [address] PCP - General Primary Care 03/30/23 Claims Adjudicator Relationship Specialty Start Date End Date Enrique Hebert DO [address] [place] [address] PCP - General Primary Care 03/30/23 Claims Adjudicator Relationship Specialty Start Date End Date Enrique Hebert DO [address] [place] [address] PCP - General Primary Care 03/30/23 Claims Adjudicator Relationship Specialty Start Date End Date Enrique Hebert DO [address] [place] [address] PCP - General Primary Care 03/30/23 Claims Adjudicator Relationship Specialty Start Date End Date Enrique Hebert DO [address] [place] [address] PCP - General Primary Care 03/30/23 Claims Adjudicator Relationship Specialty Start Date End Date Enrique Hebert DO [address] [place] [address] PCP - General Primary Care 03/30/23 Claims Adjudicator Relationship Specialty Start Date End Date Enrique Hebert DO [address] [place] [address] PCP - General Primary Care 03/30/23 Claims Adjudicator Relationship Specialty Start Date End Date Enrique Hebert DO [address] [place] [address] PCP - General Primary Care 03/30/23 Claims Adjudicator Relationship Specialty Start Date End Date Enrique Hebert DO [address] [place] [address] PCP - General Primary Care 03/30/23 Claims Adjudicator Relationship Specialty Start Date End Date Enrique Hebert DO [address] [place] [address] PCP - General Primary Care 03/30/23 Claims Adjudicator Relationship Specialty Start Date End Date Enrique Hebert DO [address] [place] [address] PCP - General Primary Care 03/30/23 Claims Adjudicator Relationship Specialty Start Date End Date Enrique Hebert DO [address] [place] [address] PCP - General Primary Care 03/30/23 Claims Adjudicator Relationship Specialty Start Date End Date Enrique pisano DO [address] [place] [address] PCP - General Primary Care 03/30/23 04/29/23 No, Physician [facility] PCP - General 04/30/23 05/05/23 Stephany Pelayo PA-C [address] [place] [address] PCP - General Internal Medicine 05/06/23 Claims Adjudicator Relationship Specialty Start Date End Date Stephany Pelayo PA-C [address] [place] [address] PCP - General Internal Medicine 05/06/23 Claims Adjudicator Relationship Specialty Start Date End Date Stephany Pelayo PA-C [address] [place] [address] PCP - General Internal Medicine 05/06/23 Marcia Reynoso, manager financialNumerical Tool Programmer 05/14/23 Claims Adjudicator Relationship Specialty Start Date End Date Stephany Pelayo PA-C [address] [place] [address] PCP - General Internal Medicine 05/06/23 Marcia Reynoso, manager financialNumerical Tool Programmer 05/14/23 Claims Adjudicator Relationship Specialty Start Date End Date Stephany Pelayo PA-C [address] [place] [address] PCP - General Internal Medicine 05/06/23 Marcia Reynoso, manager financialNumerical Tool Programmer 05/14/23 Claims Adjudicator Relationship Specialty Start Date End Date Stephany Pelayo PA-C [address] [place] [address] PCP - General Internal Medicine 05/06/23 Marcia Reynoso, manager financialNumerical Tool Programmer 05/14/23 Claims Adjudicator Relationship Specialty Start Date End Date Stephany Pelayo PA-C [address] [place] [address] PCP - General Internal Medicine 05/06/23 Marcia Reynoso, manager financialNumerical Tool Programmer 05/14/23 Claims Adjudicator Relationship Specialty Start Date End Date Enrique Hebert DO [address] [place] [address] PCP - General Primary Care 03/30/23 04/29/23 No, Physician [facility] PCP - General 04/30/23 05/05/23 Stephany Pelayo PA-C [address] [place] [address] PCP - General Internal Medicine 05/06/23 Marcia Reynoso, manager financialNumerical Tool Programmer 05/14/23 Claims Adjudicator Relationship Specialty Start Date End Date Stephany Pelayo PA-C [address] [place] [address] PCP - General Internal Medicine 05/06/23 Marcia Reynoso, manager financialNumerical Tool Programmer 05/14/23 Claims Adjudicator Relationship Specialty Start Date End Date Stephany Pelayo PA-C [address] [place] [address] PCP - General Internal Medicine 05/06/23 Marcia Reynoso, manager financialNumerical Tool Programmer 05/14/23 Claims Adjudicator Relationship Specialty Start Date End Date Stephany Pelayo PA-C [address] [place] [address] PCP - General Internal Medicine 05/06/23 Marcia Reynoso, manager financialNumerical Tool Programmer 07/30/23 Claims Adjudicator Relationship Specialty Start Date End Date Stephany Pelayo PA-C [address] [address] PCP - General Internal Medicine 05/06/23 Claims Adjudicator Relationship Specialty Start Date End Date Lexy Leach MD [address] [place] [phone] PCP - General Clinical Cardiac Electrophysiology 09/23/16 Cherelle Fierro MD [address] [place] [address], [address] [address] Family Medicine 01/30/12 Cem Mario DO [address] [place] [address] Consulting Physician Family Medicine 03/20/17 Claims Adjudicator Relationship Specialty Start Date End Date Stephany Pelayo PA-C [address] [address] PCP - General Internal Medicine 05/06/23 Claims Adjudicator Relationship Specialty Start Date End Date Stephany Pelayo PA-C [address] [place] [address] PCP - General Internal Medicine 05/06/23 Claims Adjudicator Relationship Specialty Start Date End Date Stephany Pelayo PA-C [address] [address] PCP - General Internal Medicine 05/06/23 Claims Adjudicator Relationship Specialty Start Date End Date Stephany Pelayo PA-C [address] [address] PCP - General Internal Medicine 05/06/23 Claims Adjudicator Relationship Specialty Start Date End Date Stephany Pelayo PA-C [address] [address] PCP - General Internal Medicine 05/06/23 Marcia Reynoso, manager financialNumerical Tool Programmer 09/21/23 Claims Adjudicator Relationship Specialty Start Date End Date Stephany Pelayo PA-C [facility] [address] [facility] [address] [place] [address] PCP - General Internal Medicine 05/06/23 Marcia Reynoso, manager financialNumerical Tool Programmer 09/21/23 09/23/23 Claims Adjudicator Relationship Specialty Start Date End Date Stephany Pelayo PA-C [address] [place] [address], [place] [address] PCP - General Internal Medicine 05/06/23 Claims Adjudicator Relationship Specialty Start Date End Date Stephany Pelayo PA-C [address] [place] [address], [place] [address] PCP - General Internal Medicine 05/06/23 Claims Adjudicator Relationship Specialty Start Date End Date Stephany Pelayo PA-C [address] [place] [address], [place] [address] PCP - General Internal Medicine 05/06/23 Claims Adjudicator Relationship Specialty Start Date End Date Stephany Pelayo PA-C [address] [facility] [address] [place] [address] PCP - General Internal Medicine 05/06/23 Claims Adjudicator Relationship Specialty Start Date End Date Stephany Pelayo PA-C [facility] [address] [facility] [address] [place] [address] PCP - General Internal Medicine 05/06/23 Claims Adjudicator Relationship Specialty Start Date End Date Stephany Pelayo PA-C [address] [place] [address] PCP - General Internal Medicine 05/06/23 Claims Adjudicator Relationship Specialty Start Date End Date Stephany Pelayo PA-C [address] [place] [address] PCP - General Internal Medicine 05/06/23 Claims Adjudicator Relationship Specialty Start Date End Date Lexy Leach MD [address] [place] [phone] PCP - General Clinical Cardiac Electrophysiology 09/23/16 Cherelle Fierro MD [address] [place] [address], [address] [address] Family Medicine 01/30/12 Cem Mario DO [address] [place] [address] Consulting Physician Family Medicine 03/20/17 Claims Adjudicator Relationship Specialty Start Date End Date Stephany Pelayo PA-C [address] [place] [address] PCP - General Internal Medicine 05/06/23 Claims Adjudicator Relationship Specialty Start Date End Date Stephany Pelayo PA-C [address] [place] [address] PCP - General Internal Medicine 05/06/23 Claims Adjudicator Relationship Specialty Start Date End Date Stephany Pelayo PA-C [address] [place] [address] PCP - General Internal Medicine 05/06/23 Claims Adjudicator Relationship Specialty Start Date End Date Stephany Pelayo PA-C [address] [place] [address] PCP - General Internal Medicine 05/06/23 Claims Adjudicator Relationship Specialty Start Date End Date Stephany Pelayo PA-C [address] [place] [address] PCP - General Internal Medicine 05/06/23 Claims Adjudicator Relationship Specialty Start Date End Date Stephany Pelayo PA-C [address] [place] [address] PCP - General Internal Medicine 05/06/23 Claims Adjudicator Relationship Specialty Start Date End Date Stephany Pelayo PA-C [address] [place] [address] PCP - General Internal Medicine 05/06/23 Claims Adjudicator Relationship Specialty Start Date End Date Stephany Pelayo PA-C [address] [place] [address] PCP - General Internal Medicine 05/06/23 Claims Adjudicator Relationship Specialty Start Date End Date Stephany Pelayo PA-C [address] [place] [address] PCP - General Internal Medicine 05/06/23 Claims Adjudicator Relationship Specialty Start Date End Date Stephany Pelayo PA-C [address] [place] [address] PCP - General Internal Medicine 05/06/23 Claims Adjudicator Relationship Specialty Start Date End Date Stephany Pelayo PA-C [address] [place] [address] PCP - General Internal Medicine 05/06/23 Claims Adjudicator Relationship Specialty Start Date End Date Stephany Pelayo PA-C [address] [facility] 2 [place] [address] PCP - General Internal Medicine 05/06/23 Claims Adjudicator Relationship Specialty Start Date End Date Stephany Pelayo PA-C [address] [facility] 2 [place] [address] PCP - General Internal Medicine 05/06/23 Claims Adjudicator Relationship Specialty Start Date End Date Stephany Pelayo PA-C [address] [place] [address] PCP - General Internal Medicine 05/06/23 Swapnil Hooks Community Health Worker Case Management 01/27/24 Claims Adjudicator Relationship Specialty Start Date End Date Stephany Pelayo PA-C [address] [place] [address] PCP - General Internal Medicine 05/06/23 Swapnil Hooks Community Health Worker Case Management 01/27/24 Claims Adjudicator Relationship Specialty Start Date End Date Stephany Pelayo PA-C [address] [facility] [address] [place] [address] PCP - General Internal Medicine 05/06/23 Swapnil Hooks Community Health Worker Case Management 01/27/24 Claims Adjudicator Relationship Specialty Start Date End Date Stephany Pelayo PA-C [address] [place] [address], [place] [address] PCP - General Internal Medicine 05/06/23 Swapnil Hooks Community Health Worker Case Management 01/27/24 Claims Adjudicator Relationship Specialty Start Date End Date Stephany Pelayo PA-C [address] [place] [address], [place] [address] PCP - General Internal Medicine 05/06/23 Swapnil Hooks Community Health Worker Case Management 01/27/24 Claims Adjudicator Relationship Specialty Start Date End Date Stephany Pelayo PA-C [address] [place] [address], [place] [address] PCP - General Internal Medicine 05/06/23 Claims Adjudicator Relationship Specialty Start Date End Date Stephany Pelayo PA-C [address] [place] [address], [place] [address] PCP - General Internal Medicine 05/06/23 Swapnil Hooks Community Health Worker Case Management 01/27/24 Radha Davalos, JULI Dietitian Dietitian/Nutritionis t 02/04/24 Claims Adjudicator Relationship Specialty Start Date End Date Stephany Pelayo PA-C [address] [place] [address], [place] [address] PCP - General Internal Medicine 05/06/23 Swapnil Hooks Community Health Worker Case Management 01/27/24 Claims Adjudicator Relationship Specialty Start Date End Date Stephany Pelayo PA-C [address] [place] [address] PCP - General Internal Medicine 05/06/23 Swapnil Hooks Community Health Worker Case Management 01/27/24 Radha Davalos, JULI Dietitian Dietitian/Nutritionis t 02/04/24 Claims Adjudicator Relationship Specialty Start Date End Date Stephany Pelayo PA-C [address] [place] [address] PCP - General Internal Medicine 05/06/23 Swapnil Hooks Community Health Worker Case Management 01/27/2403/10 Claims Adjudicator Relationship Specialty Start Date End Date Stephany Pelayo PA-C [address] [place] [address] PCP - General Internal Medicine 05/06/23 Claims Adjudicator Relationship Specialty Start Date End Date Stephany Pelayo PA-C [address] [place] [address] PCP - General Internal Medicine 05/06/23 Claims Adjudicator Relationship Specialty Start Date End Date Stephany Pelayo PA-C [address] [place] [address] PCP - General Internal Medicine 05/06/23 Claims Adjudicator Relationship Specialty Start Date End Date Stephany Pelayo PA-C [address] [place] [address] PCP - General Internal Medicine 05/06/23 Claims Adjudicator Relationship Specialty Start Date End Date Stephany Pelayo PA-C [address] [place] [address] PCP - General Internal Medicine 05/06/23 Claims Adjudicator Relationship Specialty Start Date End Date Stephany Pelayo PA-C [address] [place] [address] PCP - General Internal Medicine 05/06/23 Claims Adjudicator Relationship Specialty Start Date End Date Stephany Pelayo PA-C [address] [facility] [address] [place] [address] PCP - General Internal Medicine 05/06/23 Claims Adjudicator Relationship Specialty Start Date End Date Stephany Pelayo PA-C [address] [facility] [address] [place] [address] PCP - General Internal Medicine 05/06/23 Claims Adjudicator Relationship Specialty Start Date End Date Stephany Pelayo PA-C [address] [facility] [address] [place] [address] PCP - General Internal Medicine 05/06/23 Claims Adjudicator Relationship Specialty Start Date End Date Stephany Pelayo PA-C [facility] [address] [facility] [address] [place] [address] PCP - General Internal Medicine 05/06/23 Claims Adjudicator Relationship Specialty Start Date End Date Stephany Pelayo PA-C [facility] [address] [facility] [address] [place] [address] PCP - General Internal Medicine 05/06/23 Claims Adjudicator Relationship Specialty Start Date End Date Stephany Pelayo PA-C [address] [facility] [address] [place] [address] PCP - General Internal Medicine 05/06/23 Claims Adjudicator Relationship Specialty Start Date End Date Stephany Pelayo PA-C [facility] [address] [facility] [address] [place] [address] PCP - General Internal Medicine 05/06/23 Claims Adjudicator Relationship Specialty Start Date End Date Stephany Pelayo PA-C [address] [facility] [address] [place] [address] PCP - General Internal Medicine 05/06/23 Claims Adjudicator Relationship Specialty Start Date End Date Stephany Pelayo PA-C [address] [facility] [address] [place] [address] PCP - General Internal Medicine 05/06/23 Claims Adjudicator Relationship Specialty Start Date End Date Unallocated, Noms Provider, [address] [place] [address] PCP - General Family Medicine 07/05/24 Jim Velez MD [address] [place] [address] Referring Physician Pain Medicine 07/05/24 Claims Adjudicator Relationship Specialty Start Date End Date Stephany Pelayo PA-C [facility] [address] [facility] [address] [place] [address] PCP - General Internal Medicine 05/06/23 Claims Adjudicator Relationship Specialty Start Date End Date Stephany Pelayo PA-C [facility] [address] [address] PCP - General Internal Medicine 05/06/23 Claims Adjudicator Relationship Specialty Start Date End Date Stephany Pelayo PA-C [address] [facility] [address] [place] [address] PCP - General Internal Medicine 05/06/23 Claims Adjudicator Relationship Specialty Start Date End Date Stephany Pelayo PA-C [address] [facility] [address] [place] [address] PCP - General Internal Medicine 05/06/23 Claims Adjudicator Relationship Specialty Start Date End Date Stephany Pelayo PA-C [address] [place] [address] [place] [address] PCP - General Internal Medicine 05/06/23 Claims Adjudicator Relationship Specialty Start Date End Date Stephany Pelayo PA-C [address] [place] [address], [place] [address] PCP - General Internal Medicine 05/06/23 Claims Adjudicator Relationship Specialty Start Date End Date Stephany Pelyao PA-C [address] [place] [address], [place] [address] PCP - General Internal Medicine 05/06/23 Claims Adjudicator Relationship Specialty Start Date End Date Stephany Pelayo PA-C [address] [place] [address], [place] [address] PCP - General Internal Medicine 05/06/23 Claims Adjudicator Relationship Specialty Start Date End Date Stephany Pelayo PA-C [address] [place] [address], [place] [address] PCP - General Internal Medicine 05/06/23 Claims Adjudicator Relationship Specialty Start Date End Date Stephany Pelayo PA-C [address] [place] [address] PCP - General Internal Medicine 05/06/23 Claims Adjudicator Relationship Specialty Start Date End Date Stephany Pelayo PA-C [address] [place] [address] PCP - General Internal Medicine 05/06/23 Claims Adjudicator Relationship Specialty Start Date End Date Stephany Pelayo PA-C [address] [place] [address] PCP - General Internal Medicine 05/06/23 Claims Adjudicator Relationship Specialty Start Date End Date Lexy Leach MD [address] [place] [address] PCP - General Clinical Cardiac Electrophysiology 09/23/16 Cherelle Fierro MD [address] [place] [address], [address] [address] Family Medicine 01/30/12 Cem Mario W, [address] [place] [address] Consulting Physician Family Medicine 03/20/17 Claims Adjudicator Relationship Specialty Start Date End Date Stephany Pelayo PA-C [address] [place] [address] PCP - General Internal Medicine 05/06/23 11/14/24 Claims Adjudicator Relationship Specialty Start Date End Date Radha Dias DO PCP - General Family Medicine 03/10/22 12/02/24 Team Status: Inactive Member Role Status Dates Ben Horn DO Attending Provider Active S tart: December 28, 2024 End: December 28, 2024 Claims Adjudicator Relationship Specialty Start Date End Date Unallocated, Noms Provider, [address] [place] [address] PCP - General Family Medicine 07/05/24 Jim Velez MD [address] [place] [phone] Referring Physician Pain Medicine 07/05/24 Claims Adjudicator Relationship Specialty Start Date End Date Unallocated, Noms Brendan, MD [facility] [place] [address] PCP - General Family Medicine 07/05/24 Jim Velez MD [address] [facility] [place] [phone] Referring Physician Pain Medicine 07/05/24 Team Status: Active Member Role Status Dates Andrés Lopez DO Primary Care Provider Active Team Status: Inactive Member Role Status Dates Andrés Lopez DO Primary Care Provider Active Start: February 20, 2025 End: February 20, 2025 Andrés Lopez DO Attending Provider Active S tart: February 20, 2025 End: February 20, 2025 Claims Adjudicator Relationship Specialty Start Date End Date System, Provider Not In PCP - General 02/23/25 Claims Adjudicator Relationship Specialty Start Date End Date System, Provider Not In PCP - General 02/23/25 Claims Adjudicator Relationship Specialty Start Date End Date System, Provider Not In PCP - General 02/23/25 Ordered Prescriptions (unrec ognized section and content) [...] hours. 1553 (Given - Provid er: Lawrence Christiansen, RN) Scheduled Medication Order 10/05/2022 10/06/2022 10/07/2022 iohexol (OMNIPAQUE) 300 MG/ML injection (COMPLETED) 50 mL, Intravenous Push, Once at Radiology exam, 1 dose, Starting on Thu10/07/22 at 0341, Until Thu10/07/22 at 0341, Imaging Protocol Orders 0341 (Given - Provid er: Beverley Iniguez) Iohexol SOLN 15,000 mg (COMPLETED) 15,000 mg (50 mL), Intrathecal, Once at Radiology exam, 1 dose, Starting on Thu10/07/22 at 0328, Until Thu10/07/22 at 0337, Imaging Protocol Orders 0337 (Given - Provid er: Beverley Jessicae) Iohexol SOLN 3,000 mg 3,000 mg (10 [...] at 0900 0955 (Given - Provider: Sandra Raman, JAEL) 1134 (Given - Provider: Rafaela Casarez LPN) [...] bedtime, First dose (after last modification) on Thu02/19/23 at 2100, For Nightly Insulin Dose Coverage, [...] Rafaela Casarez LPN)2152 (Given - Provider: Dannielle Jeong RN) 1018 (Given - Provider: Swapnil Maldonado RN) [...] RN) 1134 (Given - Provider: Rafaela Casarez LPN)2151 (Given - Provider: Dannielle Jeong RN) 1017 [...] prolongation. 0404 (Given - Provider: Monique Grande RN)2152 (Given - Provider: Monique Grande RN) regadenoson [...] Monique Grande RN)1400 (Given - Provider: Sandra Raman RN)215 (Given - Provider: Monique Grande RN) 0600 [...] at 967.7 mL/hr, Once, On Thu02/19/23 at 0700, For 1 dose 0645 (Restarted [...] PRN, anxiety, Starting on Danelle 02/19/23 at 1754 2159 (Given - Provider: Dannielle Jeong RN) magnesium [...] NOT CRUSH OR CHEW. 0357 (Return to [facility] - Provider: Monique Grande RN) ondansetron (ZOFRAN) [...] hours scheduled, First dose on 03/29/23 at 2200, Notify physician if patient refuses. 2110 (Given - Provider: Dannielle Bui RN) 0509 (Given - Provider: Dannielle Bui RN)1400 (Not Given - Provider: Emily Granados LPN - Reason: Patient/family refused) heparin, porcine (PF) injection 500 Units 500 Units, Intravenous, Once, On 03/29/23 at 1310, For 1 dose 1310 (Not [...] 09 (Given - Provider: Emily Granados LPN) levothyroxine (SYNTHROID, LEVOTHROID) tablet 75 mcg 75 mcg, Oral, Daily, First dose on 03/29/23 at 1530, For patients on continuous tube feed: Hold TF from 1 hr before until 1 hr after each dose. TF rate may need adjustment to meet caloric needs. 1518 (Given - Provider: Roshni Narvaez RN) 0509 (Given - Provider: Dannielle Bui RN) metoprolol succinate (TOPROL-XL) 24 hr tablet 25 mg 25 mg, Oral, Daily, First dose on 03/29/23 at 1530, DO NOT CRUSH OR CHEW. 1517 (Given - Provider: Roshni Narvaez RN) 0932 [...] than 90. 1325 (Not Given - Provider: Kraon Desai RN - Reason: Patient/family refused - [...] at 2025, Give with Food flu vacc [id number] 6mos up(PF) (FLUZONE QUAD/FLULAVAL QUAD/FLUARIX QUAD) syringe [...] Fowler RN) 2324 (Given - Provider: Laura Lechuga, JAEL) busPIRone (BUSPAR) tablet 30 mg 30 mg, Oral, Every 12 hours scheduled, First dose on Thu01/12/24 at 2200 0905 (Given - Provider: Laura Levin RN)2310 (Given - Provider: Donnell Fowler RN) 09 (Given - Provider: Laura Levin RN)2324 (Given - Provider: Laura Lechuga, JAEL) 0918 (Given - Provider: Kvng Portillo) citalopram [...] LPN)231 (Given - Provider: Donnell Fowler RN) 0600 [...] RN)231 (Given - Provider: Donnell Fowler RN) 0920 [...] RN) 232 (Given - Provider: Laura Lechuga, RN) QUEtiapine (SEROQUEL) tablet 800 mg 800 mg, Oral, Nightly, First dose on Thu01/12/24 at 2300, May cause QT interval prolongation. 2311 (Given - Provider: Donnell Fowler RN) 232 (Given - Provider: Laura Lechuga, RN) sodium chloride (PF) (NS) flush 5 [...] 2311 (Given - Provider: Donnell Fowler RN) 2323 (Given - Provider: Laura Lechuga RN) Continuous Medication Order 01/16/2024 01/17/2024 01/18/2024 sodium chloride 0.9% (NS) (CANCELED) 100 mL/hr, Intravenous, Continuous, Starting on Thu01/12/24 at 1700 0412 (New Bag - Provider: Gely Rincon LPN)0712 (New Bag - Provider: Gely Rincon LPN)1042 (Stopped - Provider: Laura Levin, JAEL)1047 (New Bag - Provider: Laura Levin RN) [...] 1823 1216 (Given - Provider: Laura Levin RN)2037 (Given - Provider: Donnell Fowler RN) 0504 [...] line care, Starting on Thu01/12/24 at 182 sodium chloride 0.9% (NS)(Linked Group 1) 0-150 [...] RN) 2122 (Given - Provider: Dannielle Jeong, JAEL) busPIRone (BUSPAR) tablet 30 mg 30 mg, Oral, 2 times daily, First dose on Thu03/25/24 at 0900 0905 (Given - Provider: Nicolette Coffey RN)2036 (Given - Provider: Ruby Lujan RN) 08 (Given - Provider: Nicolette Coffey RN)2123 (Given - Provider: Dannielle Jeong, JAEL) 0857 (Given - Provider: Ifeoma Waterman, JAEL) cefadroxil (DURICEF) capsule 500 mg 500 mg, Oral, Every 12 hours scheduled, First dose on Thu03/30/24 at 1500, Indication: Skin/Soft Tissue Infection 09 (Given - Provider: Nciolette Coffey RN)2036 (Given - Provider: Ruby Lujan RN) 0834 (Given - Provider: Nicolette Coffey RN)2124 (Given - Provider: Dannielle Jeong, JAEL) 1130 (Given - Provider: Ifeoma Waterman, JAEL) citalopram (CELEXA) tablet 40 mg 40 mg, Oral, Daily, First dose on Thu03/25/24 at 0900 0905 (Given - Provider: Nicolette Coffey RN) 0828 (Given - Provider: Nicolette Coffey RN) 0857 (Given - Provider: Ifeoma Waterman RN) enoxaparin (LOVENOX) syringe 40 mg 40 mg, Subcutaneous, 2 times daily, First dose (after last modification) on Thu03/30/24 at 1000, Administer in abdomen unless otherwise directed by prescriber. Notify physician if patient refuses., Indication: VTE Prophylaxis 904 (Given - Provider: Nicolette Coffey, RN)2039 (Given - Provider: Ruby Lujan, RN) 08 (Given - Provider: Nicolette Coffey, RN)2125 (Given - Provider: Dannielle Jeong, RN) 08 (Given - Provider: Ifeoma Waterman, RN) heparin, porcine (PF) injection 500 Units (COMPLETED) 500 Units, Intravenous, Once, On Thu04/04/24 at 1615, For 1 dose 1525 (Given - Provider: Ifeoma Waterman, RN) insulin glargine (LANTUS) injection 30 Units (CANCELED) [...] Nightly, First dose (after last modification) on Thu04/03/24 at 2100, If patient NPO and BG [...] Units, Subcutaneous, At bedtime, First dose on Thu03/27/24 at 2100, IF initial POC glucose is [...] SC NIGHTtime 2099 (Given - Provider: Ruby Lujan RN) 2131 (Not Given - Provider: Dannielle Jeong RN - Reason: Order parameters not met) [...] Nicolette Coffey RN)1225 (Given - Provider: Nicolette Coffey, JAEL)1630 (Not Given - Provider: Nicolette Coffey RN - Reason: Contraindicated) 0858 (Given - Provider: Ifeoam Waterman, JAEL)1130 (Given - Provider: Ifeoma Waterman, JAEL - Comment: BS from pump) lamoTRIgine (LAMICTAL) tablet 25 mg 25 mg, Oral, 2 times daily, First dose on Thu03/25/24 at 0900 0905 (Given - Provider: Nicolette Coffey RN)2037 (Given - Provider: Ruby Lujan RN) 827 (Given - Provider: Nicolette Coffey RN)2126 (Given - Provider: Dannielle Jeong, JAEL) 08 (Given - Provider: Ifeoma Waterman, RN) levothyroxine (SYNTHROID, LEVOTHROID) tablet 75 mcg [...] 0859 (Patch Removed - Provider: Nicolette Coffey RN)899 (Not Given - Provider: Nicolette Coffey RN - Reason: Patient/family refused) 856 (Not Given - Provider: Ifeoma Waterman RN - Reason: Patient/family refused) nortriptyline (PAMELOR) capsule 25 mg 25 mg, Oral, Nightly, First dose on Thu03/25/24 at 2100, May cause QT interval prolongation. 2036 (Given - Provider: Ruby Lujan RN) 2124 (Given - Provider: Dannielle Jeong, RN) pantoprazole (PROTONIX) EC tablet 40 mg [...] at 0400 09 (Given - Provider: Nicolette Coffey, JAEL)2036 (Given - Provider: Ruby Lujan RN) 827 (Given - Provider: Nicolette Coffey RN)2122 (Given - Provider: Dannielle Jeong, JAEL) 08 (Given - Provider: Ifeoma Waterman, JAEL) QUEtiapine [...] Lujan RN)1400 (Canceled Entry - Provider: Nicolette Coffey RN)2199 (Given - Provider: Ruby Lujan RN) 599 (Given - Provider: Ruby Lujan RN)1400 (Canceled Entry - Provider: Nicolette Coffey RN)2125 (Given - Provider: Dannielle Jeong, JAEL) 0600 (Not Given - Provider: Dannielle Jeong RN - Reason: Order parameters not met)1400 (Canceled Entry - Provider: Ifeoma Waterman RN - Comment: no peripherial line) timolol (TIMOPTIC) 0.5 % ophthalmic solution 1 drop 1 drop, Left Eye, Daily, First dose on Thu03/25/24 at 0900 0910 (Given - Provider: Nicolette Coffey, RN) 0829 (Given - Provider: Nicolette Coffey, RN) 0858 (Given - Provider: Ifeoma Waterman RN) tiZANidine (ZANAFLEX) tablet 4 mg 4 mg, Oral, Nightly, First dose (after last modification) on Thu03/25/24 at 0400 2152 (Given - Provider: Ruby Lujan, RN) 2124 (Given - Provider: Dannielle Jeong RN) PRN Medication Order 04/02/2024 04/03/2024 04/04/2024 [...] RN) 0828 (Given - Provider: Nicolette Coffey, RN)1244 (Given - Provider: Nicolette Coffey, RN)1757 (Given - Provider: Nicolette Coffey, RN)2137 (Given - Provider: Dannielle Jeong RN) 0422 (Given - Provider: Dannielle Jeong, JAEL)0857 (Given - Provider: Ifeoma Waterman, RN)1335 (Given - Provider: Ifeoma Waterman, JAEL) sodium chloride (PF) (NS) flush 5 mL(Linked Group 4) 5 mL, Intravenous, As needed, line care, Starting on Thu03/24/24 at 2020 sodium chloride (PF) (NS) flush [...] the secondary infusion, Starting on Thu03/24/24 at 2020, Run as Primary IV. NOT [...] at 0134 2137 (Given - Provider: Dannielle Jeong, JAEL) Linked Groups Order Group 1: insulin lispro (AdmeLOG,HumaLOG) injection 0-15 UnitsJump to med 0-15 Units, Subcutaneous, At bedtime, First dose on Thu03/27/24 at 2100, IF initial POC glucose is [...] physician (CANCELED) Routine, Until discontinued, Starting on Thu03/27/24 at [...] breathless, and unresponsive, Starting on Thu03/25/24 at 031, Call a code first, then administer naloxone [...] Boyer RN)1342 (New Bag - Provider: Yvette Canchola, JAEL)1451 (Stopped - Provider: Yvette Canchola RN) enoxaparin (LOVENOX) syringe 40 mg 40 mg, Subcutaneous, 2 times daily, First dose on Thu04/27/24 at 0900, Administer in abdomen unless otherwise directed by prescriber. Notify physician if patient refuses., Indication: VTE Prophylaxis 0804 (Given - Provider: Zuly Benjamin RN)2023 (Given - Provider: Kinza Plascencia LPN) 08 (Given - Provider: Yvette Canchola RN)210 (Given - Provider: Aleyda Villegas RN) 0835 (Not Given - Provider: Yvette Canchola RN - Reason: Patient/family refused) heparin, porcine (PF) injection 500 Units (COMPLETED) 500 Units, Intravenous, Once, On Thu04/29/24 at 1500, For 1 dose, De-access port 1452 (Given - Provider: Yvette Canchola, JAEL) insulin glargine (LANTUS) injection 35 Units (CANCELED) [...] Zuly Benjamin RN)1623 (Given - Provider: Zuly Benjamin, JAEL) 0827 (Given - Provider: Yvette Canchola, JAEL)1218 (Given - Provider: Yvette Canchola, RN)1611 (Given - Provider: Yvette Canchola, RN) 0832 (Given - Provider: Yvette Canchola, RN)1144 (Given - Provider: Yvette Canchola, RN) insulin lispro (AdmeLOG,HumaLOG) injection 10 Units [...] LPN) 825 (Given - Provider: Yvette Canchola RN)2107 (Given - Provider: Aleyda Villegas RN) 830 (Given - Provider: Yvette Canchola RN) levothyroxine [...] Villegas RN) 830 (Given - Provider: Yvette Canchola, JAEL) nicotine (NICODERM CQ) 14 mg/24 hr 1 patch 1 patch, Transdermal, Administer over 24 Hours, Daily, First dose (after last modification) on Thu04/27/24 at 0900, U/P Listed Hazardous Drug. Waste Must Be Disposed in [employer] Waste Container 08 (Patch Applied - Provider: Zuly Benjamin RN) 0804 (Not Given - Provider: Yvette Canchola RN - Reason: Other - Comment: No patch on)0825 (Not Given - Provider: Yvette Canchola RN [...] 08 (Given - Provider: Yvette Canchola RN) 0831 (Given - Provider: Yvette Canchola RN) pregabalin [...] Provider: Kyrie Gonzalez RN)2021 (Given - Provider: Kizna Plascencia LPN) 2107 (Given - Provider: Aleyda [...] shortness of breath, Starting on Thu04/27/24 at 0109 hydrALAZINE (APRESOLINE) injection 10 mg 10 mg, Intravenous, Every 6 hours PRN, SBP > 180 or DBP > 100, hold for HR >100, Starting on Thu04/27/24 at 0109 0426 (Given - Provider: Kyrie Gonzalez RN) [...] PRN, nausea, vomiting, Starting on Thu04/27/24 at 010 0310 (Given - Provider: Kyrie Gonzalez RN) oxyCODONE-acetaminophe n (PERCOCET) 5-325 mg per tablet 1 tablet 1 tablet, Oral, Every 4 hours PRN, moderate to severe pain, Starting on Thu04/27/24 at 0109 0241 (Given - Provider: Kyrie Gonzalez RN)0926 (Given - Provider: Zuly Benjamin RN)1703 (Given - Provider: Zuly Benjamin RN)2134 (Given - Provider: Kinza Plascencia LPN) 0614 (Given - Provider: Kinza Plascencia LPN)1032 (Given - Provider: Shawna Telles RN)1432 (Given - Provider: Yvette Canchola RN)1941 (Given - Provider: Aleyda Villegas RN)2353 (Given - Provider: Aleyda Villegas RN) 0415 (Given - Provider: Aleyda Villegas, JAEL)0831 (Given - Provider: Yvette Canchola RN)1341 (Given [...] 1350 (New Bag - Prov ider: Yvette Canchola, RN)1548 (Stopped - Provider: Yvette Canchola RN) [...] Mcpherson RN) 0835 (Given - Provider: Rafael Chavira, RN) heparin (porcine) injection 5,000 Units 5,000 Units, subcutaneous, Every 12 hours scheduled, First dose on 12/03/24 at 1800, Notify prescriber if INR greater than 1.9, hemoglobin less than 10 mg/dL, aPTT greater than 40 seconds, and/or platelet count less than 100,000/mm Look-alike/sound-alike medication - verify indication for use. Observe for bleeding. 2219 (Given - Provider: Shawna Carrnigton RN) 0906 (Given - Provider: Uzma Mcpherson RN)2128 (Given - Provider: Ellen Valera RN) [...] pens stable 28 days at room temperature. 1739 (Given - Provider: Uzma Mcpherson RN) insulin [...] pens stable 28 days at room temperature. 931 (Given - Provider: Uzma Mcpherson RN)2128 (Given [...] pens stable 28 days at room temperature. 08 (Given - Provider: Rafael Chavira RN) insulin lispro (HumaLOG) injection 1-4 Units (CANCELED) 1-4 Units, subcutaneous, Nightly, First dose on Thu12/03/24 at 2200, Bedtime hyperglycemia dosing. For blood [...] RN) 2127 (Given - Provider: Ellen Valera, JAEL) insulin lispro (HumaLOG) injection 1-5 Units (CANCELED) [...] minutes before or immediately after a meal. 2016 (Given - Provider: Shawna Carrington RN) 0800 (Not Given - Provider: Uzma Mcpherson RN - Reason: Other - Comment: pt did not eat)1232 (Given - Provider: Uzma Mcpherson, RN) insulin lispro (HumaLOG) injection 1-5 Units [...] bs 114) 1113 (Given - Provider: Uzma Mcpherson, RN)1231 (Given - Provider: Uzma Mcpherson, RN) insulin lispro (HumaLOG) injection 2-10 Units [...] RN) 0800 (Not Given - Provider: Rafael Chavira, RN - Reason: Other - Comment: Pt skipping breakfast)1344 (Given - Provider: Shi Saldivar, RN)1700 (Due) insulin lispro (HumaLOG) injection 2-10 Units 2-10 Units, subcutaneous, 3 times daily with meals, First dose (after last modification) on Thu12/04/24 at 1700, Daytime hyperglycemia dosing. For blood [...] Rafael Chavira, RN)1343 (Given - Provider: Shi Saldivar, RN)1700 (Due) insulin lispro (HumaLOG) injection 2-8 [...] use. 0753 (Given - Provider: Uzma Mcpherson RN)2219 (Given - Provider: Shawna Carrington RN) 904 (Given - Provider: Uzma Mcpherson, RN)2127 (Given - Provider: Ellen Valera, RN) 834 (Given - Provider: Rafael Chavira, RN) levothyroxine [...] Mcpherson RN) 905 (Given - Provider: Uzma Mcpherson, RN) 834 (Given - Provider: Rafael Chavira, RN) pregabalin (LYRICA) capsule 100 mg 100 mg, oral, Nightly, First dose on 12/03/24 at 2200, Look-alike/sound-alike medication. Verify indication for use 2219 (Given - Provider: Shawna Carrington RN) 2127 (Given - Provider: Ellen Valera, JAEL) QUEtiapine (SEROquel) tablet 800 mg 800 mg, oral, Nightly, First dose on 12/03/24 at 2200, Look-alike/sound-alike medication - verify indication for use. 2220 (Given - Provider: Shawna Carrington RN) 2128 (Given - Provider: Ellen Valera, RN) sodium chloride 0.9 % bolus (COMPLETED) 1,000 mL, intravenous, at 1,935.5 mL/hr, Administer over 31 Minutes, Once, On 12/03/24 at 1200, For 1 dose 1158 (New Bag - Provider: Uzma Mcpherson, RN)1229 (Stop Bag - Provider: Uzma Mcpherson [...] Shawna Carrington RN)0755 (Given - Provider: Uzma Mcpherson, RN)2223 (Given - Provider: Shawna Carrington RN) 0907 (Given - Provider: Uzma Mcpherson, JAEL)2109 (Given - Provider: Ellen Valera, RN) 0835 (Given - Provider: Rafael Chavira, RN) tiZANidine (ZANAFLEX) tablet 4 mg 4 mg, oral, 3 times daily, First dose on 12/03/24 at 0800, Look-alike/sound-alike medication - verify indication for use. 0812 (Given - Provider: Uzma Mcpherson RN)1336 (Given - Provider: Uzma Mcpherson, RN)2220 (Given - Provider: Shawna Carrington RN) 0906 (Given - Provider: Uzma Mcpherson, RN)1604 (Given - Provider: Uzma Mcpherson RN)2128 (Given - Provider: Ellen Valera, RN) 0541 (Given - Provider: Ellen Valera, RN)1434 (Given - Provider: Rafael Chavira RN) Continuous Medication Order 12/03/2024 12/04/2024 12/05/2024 [...] Mcpherson RN)2006 (Paused - Provider: Uzma Mcpherson RN)2009 (Restarted - Provider: Uzma Mcpherson RN)2358 (Paused [...] to dextrose-containing formulation, DO NOT change to yze-odkyzuhh-yutnbhbjjg IV fluid if blood glucose exceeds 250 [...] to dextrose-containing formulation, DO NOT change to qku-yihknwjo-dhhmfbshtr IV fluid if blood glucose exceeds 250 mg/dL. 0816 (New Bag - Provider: Uzma Mcpherson RN)0816 (Paused - Provider: Uzma Mcpherson RN)0818 (Paused - Provider: Uzma Mcpherson RN)0829 (Restarted - Provider: Uzma Mcpherson RN)0830 (Stop Bag - Provider: Uzma Mcpherson [...] 6 hours PRN, nausea, vomiting, Starting on Thu12/04/24 at 1245, Intravenous administration preferred to be given over 2-5 minutes. 2142 (Given - Provider: Ellen Valera, JAEL) oxyCODONE-acetaminophen (PERCOCET) 5-325 mg per tablet 1 tablet 1 tablet, oral, Every 8 hours PRN, severe pain - pain scale 7-10, Starting on 12/03/24 at 0253, Look-alike/sound-alike medication - verify indication for use., Indications: pain 0533 (Given - Provider: Shawna Carrington RN)1336 (Given - Provider: Uzma Mcpherson, RN)2220 (Given - Provider: Shawna Carrington, RN) 0916 (Given - Provider: Uzma Mcpherson, RN)2136 (Given - Provider: Ellen Valera, RN) sodium [...] intravenous, As needed, line care, Starting on 12/05/24 at 0624, Implanted Ports. 20 mL IVP [...] BE BASED ON THE PRIMARY CLINICAL RECORDS. [facility] [facility]. provides no warranty or guarantee of the accuracy or completeness of information in this document.
--- NOTE | 2025-03-01 16:15 | XR_ITS ---
[facility] [place] [id number] Patient Name: ADDIE SANDERS MRN: [id number] date: 1975 Sex: F Assigned Patient Location: [facility] Current Patient Location: Accession/Order Number: [id number] Exam Date: 03/01/2025 16:00 Report Date: 03/02/2025 08:00 At the request of: NON-STAFF PHYSICIAN Procedure: XR lumbar spine 6V w bending LUMBAR SPINE WITH FLEXION AND EXTENSION VIEWS-7 views: CLINICAL HISTORY: Chronic low back pain. COMPARISON: CT 03/04/2022 AP, lateral (neutral, flexion and extension), both oblique and lateral coned-down views of the lumbosacral junction were obtained. There is subtle dextroscoliotic curvature. There is no acute fracture. The neutral lateral views are not well centered. No significant displacement or instability is seen. The disc spaces are normal in height. There is minor endplate spurring. No pars defect is identified. The sacroiliac joints are intact. There are no paraspinal soft tissue abnormalities. XR/XR lumbar spine 6V w bending IMPRESSION: SUBTLE SCOLIOSIS AND MINOR DEGENERATIVE CHANGE. NO ACUTE BONY FINDINGS. Impression dictated by: Hayde Byrne M.D. 03/02/2025 8:00 AM Dictation Location: [place] [address] Electronically authenticated by: [id number] Y Date: 03/02/2025 08:00
--- NOTE | 2025-03-01 16:15 | XR_ITS ---
[address] [address] Patient Name: ADDIE SANDERS MRN: [id number] date: 1975 Sex: F Assigned Patient Location: [facility] Current Patient Location: [facility] Accession/Order Number: [id number] Exam Date: 03/01/2025 16:00 Report Date: 03/01/2025 20:10 At the request of: NON-STAFF PHYSICIAN MD Procedure: XR hand LT min 3V LEFT HAND - 3 views COMPARISON: None REASON FOR EXAM: Left hand pain FINDINGS: No fracture-dislocation. Joint spaces preserved. Soft tissues unremarkable. No radiopaque foreign body. Vascular calcifications. XR/XR hand LT min 3V IMPRESSION: NO ACUTE BONY INJURY. Impression dictated by: Oscar Mac M.D. 03/01/2025 8:10 PM Dictation Location: [place] [address] Electronically authenticated by: [id number] Y Date: 03/01/2025 20:10
== END 2025-03-01 15:52 | disposition home or self-care (01) ==
LOC: RAD 15:52
DX: M79.642 Pain in left hand (principal); M48.062 Spinal stenosis, lumbar region with neurogenic claudication
CPT/HCPCS: 72114; 73130

== ENCOUNTER 2025-04-12 14:12 | Emergency (ER) | payer OTHER, SELFPAY ==
--- OUTSIDE RECORDS SUMMARY | 2011-09-05 04:00 | XMS_ITS | Continuity of Care Document ---
Author Organization [facility] Address [address] [place] [address] Phone Care Team Providers Care Paleologist Name Role Phone Liberty STEVENS, Mario Unavailable Unavailab le Medications Medication Instructions Dosage Effective Dates (start - stop) Status Comments Diflucan 150 mg Tab take 1 tablet (150MG ) by oral route once - Active nystatin-triamcinolon e 100,000 unit/gram-0.1 % Ointment apply by TOPICAL route 2 times every day to the affected area(s) - Active Procedures Procedure Date Offic/outpt E&m [place] [address] 2 Offic/outpt E&m [facility] 45 2 Advance Directives Directive Yes / No Effective Date File Name Resuscitation Not Answered N/A N/A Life Support Not Answered N/A N/A Intubation Not Answered N/A N/A Antibiotics Not Answered N/A N/A IV Fluid Support Not Answered N/A N/A Tube Feed Not Answered N/A N/A Other Directive N/A N/A WARNING:The information contained in this section is historical and is provided for information only and does not constitute a legal document or any assurance that the information is still accurate. Please verify the information with the rodríguez of the legal document before using it for clinical purposes. Encounters Encounter Description Practice Location Reason(s) For Visit Diagnoses Date Provider Providers Copied on Encounter Offic/outpt E&m [facility] 45 [facility], [address], [place], [place], [address], tel:[phone] [facility] abnormal pap smear (chief complaint) CandidiasisDiab etes Mellitus Type 2, UncomplicatedOb esity, Morbid 2 Liberty Martin. [address] [place] [address], [place], [place], [id number], [place]. tel:[phone] Family History Family Member Type Diagnosis Age At Onset Father Problem (finding) hypertension Father Problem (finding) diabetes melli tus in first degree relative Payers Payer name Insurance type Covered libertarian ID Authoringrid meza(s) Mike [id number] Social History Type Description Quantity Date Captured Comments Alcohol Use Details No Caffeine Use Details Tobacco Use Status No Information Smoking Status Never smoker Non-Smoking Tobacco Use Details : No Details Available : No Details Available [id number] SexFemale Vital Signs Date / Time: Height Weight BMI Pulse Rate Blood Pressure Temperature Respiratory Rate Body Surface Area Head Circumference Head Circ. Percentile Wt./Carlos. Percentile BMI percentile Pulse Ox Inhaled Ox 8:47 AM 62.00 in 175.00 lbs 32.0 0 kg/m eter (2) 120/70 mm[Hg] Chief Complaint And Reason For Visit From encounter dated '09/05/2011 09:00'. abnormal pap smear (chief complaint) Reason For Referral Reason For Referral No Information History Of Present Illness Encounter Date Complaint History Of Prese nt Illness No Information Functional Status Date Functional Assessmen t No Information Instructions Date Instruction Additional Infor mation No Information Assessments Type Assessment Date No Information Patient Care Teams Name Effective Dates (start - stop) Status Members No Information
--- OUTSIDE RECORDS SUMMARY | 2011-09-05 04:00 | XMS_ITS | Continuity of Care Document ---
Author Organization [facility] Address [address] [place] [address] Phone Care Team Providers Care Release Of Information Specialist Name Role Phone Liberty STEVENS, Mario Unavailable Unavailab le Medications Medication Instructions Dosage Effective Dates (start - stop) Status Comments Diflucan 150 mg Tab take 1 tablet (150MG ) by oral route once - Active nystatin-triamcinolon e 100,000 unit/gram-0.1 % Ointment apply by TOPICAL route 2 times every day to the affected area(s) - Active Procedures Procedure Date Offic/outpt E&m [place] [address] 2 Offic/outpt E&m [facility] 45 2 Advance Directives Directive Yes [...] Providers Copied on Encounter Offic/outpt E&m [facility] 45 [facility], [address], [place], [place], [address], tel:[phone] [facility] abnormal pap smear (chief complaint) CandidiasisDiab etes Mellitus Type 2, UncomplicatedOb esity, Morbid 2 Liberty Martin. [address] [place] [address], [place], [place], [id number], [place]. tel:[phone] Family History Family Member Type Diagnosis Age At Onset Father Problem (finding) hypertension Father Problem (finding) diabetes melli tus in first degree relative Payers Payer name Insurance type Covered constitution party ID Authoringrid meza(s) Mike [id number] Social History Type Description Quantity Date Captured Comments Alcohol Use Details No Caffeine Use Details Tobacco Use Status No Information Smoking Status Never smoker Non-Smoking Tobacco Use Details : No Details Available : No Details Available [id number] SexFemale Vital Signs Date / Time: Height [...]
--- OUTSIDE RECORDS SUMMARY | 2011-09-05 04:00 | XMS_ITS | Continuity of Care Document ---
Author Organization [facility] Address [address] [place] [address] Phone Care Team Providers Care Learning Support Assistant Name Role Phone Liberty STEVENS, Mario Unavailable Unavailab le Medications Medication Instructions Dosage Effective Dates (start - stop) Status Comments Diflucan 150 mg Tab take 1 tablet (150MG ) by oral route once - Active nystatin-triamcinolon e 100,000 unit/gram-0.1 % Ointment apply by TOPICAL route 2 times every day to the affected area(s) - Active Procedures Procedure Date Offic/outpt E&m [place] [address] 2 Offic/outpt E&m [facility] 45 2 Advance Directives Directive Yes [...] Providers Copied on Encounter Offic/outpt E&m [facility] 45 [facility], [address], [place], [place], [address], tel:[phone] [facility] abnormal pap smear (chief complaint) CandidiasisDiab etes Mellitus Type 2, UncomplicatedOb esity, Morbid 2 Liberty Martin. [address] [place] [address], [place], [place], [id number], [place]. tel:[phone] Family History Family Member Type Diagnosis Age At Onset Father Problem (finding) hypertension Father Problem (finding) diabetes melli tus in first degree relative Payers Payer name Insurance type Covered green party ID Authoringrid meza(s) Mike [id number] Social History Type Description Quantity Date Captured Comments Alcohol Use Details No Caffeine Use Details Tobacco Use Status No Information Smoking Status Never smoker Non-Smoking Tobacco Use Details : No Details Available : No Details Available [id number] SexFemale Vital Signs Date / Time: Height [...]
--- OUTSIDE RECORDS SUMMARY | 2011-09-05 04:00 | XMS_ITS | Continuity of Care Document ---
Author Organization [facility] Address [address] [place] [address] Phone Care Team Providers Care Practice Business Asst Name Role Phone Liberty STEVENS, Mario Unavailable Unavailab le Medications Medication Instructions Dosage Effective Dates (start - stop) Status Comments Diflucan 150 mg Tab take 1 tablet (150MG ) by oral route once - Active nystatin-triamcinolon e 100,000 unit/gram-0.1 % Ointment apply by TOPICAL route 2 times every day to the affected area(s) - Active Procedures Procedure Date Offic/outpt E&m [place] [address] 2 Offic/outpt E&m [facility] 45 2 Advance Directives Directive Yes [...] Providers Copied on Encounter Offic/outpt E&m [facility] 45 [facility], [address], [place], [place], [address], tel:[phone] [facility] abnormal pap smear (chief complaint) CandidiasisDiab etes Mellitus Type 2, UncomplicatedOb esity, Morbid 2 Liberty Martin. [address] [place] [address], [place], [place], [id number], [place]. tel:[phone] Family History Family Member Type Diagnosis Age At Onset Father Problem (finding) hypertension Father Problem (finding) diabetes melli tus in first degree relative Payers Payer name Insurance type Covered green party ID Authoringrid meza(s) Mike [id number] Social History Type Description Quantity Date Captured Comments Alcohol Use Details No Caffeine Use Details Tobacco Use Status No Information Smoking Status Never smoker Non-Smoking Tobacco Use Details : No Details Available : No Details Available [id number] SexFemale Vital Signs Date / Time: Height [...]
--- OUTSIDE RECORDS SUMMARY | 2014-02-20 04:10 | XMS_ITS | Continuity of Care Document ---
Author Organization [facility] Address [address] [place] [address] Phone Care Team Providers Care Purchasing Associate Name Role Phone Fina STEVENS, Sandra Unavailable Unavailable Allergies, Adverse Reactions, Alerts Substance Reaction Status Criticality tramadol itching Active No Information PROPOXYPHENE NAPSYLATE sick to stomach Active No Information acetaminophen sick to stomach Active No Informat ion KETOROLAC TROMETHAMINE seizures Active No In formation codeine itching Active No Information Medications Medication Instructions Dosage Effective Dates (start - stop) Status Comments Ambien 10 mg tablet take 1 tablet by oral route every day at bedtime 10 MG - Active Prilosec 40 mg capsule,delayed release take 1 capsule by oral route 2 times every day before a meal - Active Prozac 40 mg capsule take 1 capsule by oral route every day in the morning - Active metformin 500 mg tablet take 1 tablet by oral route 2 times every day with morning and evening meals 500 MG - Active metoprolol succinate ER 25 mg tablet,extended release 24 hr take 1 tablet by oral route 2 times every day - Active Zanaflex 4 mg tablet take 1 tablet by oral route 3 times every bedtime - Active Bentyl 20 mg tablet take 1 tablet by oral route every day - Active lisinopril 20 mg tablet take 1 tablet by oral route every day - Active Keppra 500 mg tablet 2 in the am/3 in the pm - Active Symbicort 160 mcg-4.5 mcg/actuation HFA aerosol inhaler inhale 1 by inhalation route once in the morning and evening - Active hydrochlorothiazide 12.5 mg tablet take 1 tablet by oral route every day 12.5 MG - Active gabapentin 800 mg tablet take 1 tablet b y oral route 3 times every day - Active gabapentin 100 mg capsule take 1 (100MG) by oral route 3 times every day - Active aspirin 81 mg tablet,delayed release take 1 (81MG) by oral route every day - Active nortriptyline 25 mg capsule 2 daily - Active methadone 5 mg tablet TID - Active Lantus Solostar 100 unit/mL (3 mL) subcutaneous insulin pen inject 55 units BID - Active Humalog KwikPen 100 unit/mL subcutaneous inject by subcutaneous route as per insulin sliding scale protocol - Active Lantus 100 unit/mL subcutaneous solution 55 units BID - No Longer Active Humalog 100 unit/mL subcutaneous solution inject by subcutaneous route as per insulin sliding scale protocol - No Longer Active Procedures Procedure Date OCT New Patient, Moderate Ext Ophthalmoscopy, Initial Ext Ophthalmoscopy, Initial Advance Directives Directive Yes / No Effective Date File Name No Information Encounters Encounter Description Practice Location Reason(s) For Visit Diagnoses Date Provider Providers Copied on Encounter New Patient, Moderate [facility] , [address] [place], [address], [place] tel:[phone] [facility] Di referred by Dr. Dunn for a possible PVD (chief complaint) double vision (chief complaint) Blood pressure reading (chief complaint) DiplopiaDiabetes mellitus type 2Vitreous degenerationDry eye syndromeSecondary pigmentary degeneration of retinaSenile nuclear sclerosis 4 Orgel Sandra. [address] [facility], [address], [place], [place], [address] , [place]. tel:[phone] Specialist : Sergio Resendez, [address] [facility] [address], [place], [address]. tel:[phone] erring Provider: Yoseph Dunn, [address] , [place], [address]. tel:[phone] Family History Family Member Type Diagnosis Age At Onset Problem (finding) Family history of Blindness due to Diabetes-cousin Problem (finding) Family history of hyper tension Problem (finding) Family history of Heart Disease-Father Problem (finding) Family history of Diabe rodríguez mellitus Problem (finding) Family history of catar act Problem (finding) Family history of glauc margaret Payers Payer name Insurance type Covered republican ID Authoriza tion(s) No Information Social History Type Description Quantity Date Captured Comments Alcohol Use Details No Caffeine Use Details No Tobacco Use Status Heavy cigarette smok er (20-39 cigs/day) Smoking Status Current every day smoker 2013 Non-Smoking Tobacco Use Details : No Details Available : No Details Available [id number] SexFemale Vital Signs Date / Time: Height Weight BMI Pulse Rate Blood Pressure Temperature Respiratory Rate Body Surface Area Head Circumference Head Circ. Percentile Wt./Carlos. Percentile BMI percentile Pulse Ox Inhaled Ox 9:44 AM 100/66 mm[Hg] Chief Complaint And Reason For Visit From encounter dated '02/20/2014 09:10'. referred by Dr. Dunn for a possible PVD (chief complaint). Description: The 38 Year old female referred by Dr. Dunn for a possible PVD in the right eye. double vision (chief complaint). Description: The patient complains of double vision in both eyes. It started about 1 year ago. The onset was gradual. It affects both near and far vision. The symptomis constant. The condition is moderate to severe. In addition, the condition is associated with allactivity. Blood pressure reading (chief complaint). Description: Blood pressure reading was 100 /66 and this morning blood sugar was 170. Patient during the whole examination was having a hard time staying awake and had to be prompted continously to stay awake. Reason For Referral Reason For Referral No Information History Of Present Illness Encounter Date Complaint History Of Prese nt Illness Blood pressure reading Blood pre ssure reading was 100 /66 and this morning blood sugar was 170. Patient during the whole examination was having a hard time staying awake and had to be prompted continously to stay awake. double vision The patient comp lains of double vision in both eyes. It started about 1 year ago. The onset was gradual. It affects both near and far vision. The symptom is constant. The condition is moderate to severe. In addition, the condition is associated with all activity. referred by Dr. Atiya hayes for a possible PVD The 38 Year old female referred by Dr. Dunn for a possible PVD in the right eye. Functional Status Date Functional Assessmen t No Information Instructions Date Instruction Additional Infor mation - The patient states she is awaiting a new pair of glasses Rx from Dr. Dunn office. Related to Senile nuclear sclerosis Diabetes mellitus ty pe 2 - Education materials given. Related to Diabetes mellitus type 2 Diabetes mellitus ty pe 2 - Blood sugar control discussed. Related to Diabetes mellitus type 2 - No evidence of dip lopia noted on examination today. The patient was advised to follow up with Dr. Dunn if symptoms continue or worsen. Related to Diplopia - No evidence of alex betic retinopathy was noted on examination today. I advised the patient to follow up with Dr. Dunn on a yearly basis to monitor her diabetes. I will be happy to see her in the future if needed. Discussed ocular and systemic benefits of blood sugar control as well as the importance of follow up compliance from a retinal standpoint and with the PCP/Delivery Recruiter. Related to Diabetes mellitus type 2 - No holes or tears noted on scleral depressed exam. The patient was advised to call with any new or worening changes in vision. Related to Vitreous degeneration - The patient was ad vised to follow up with Dr. Dunn. Related to Dry eye syndrome - The patient was ad visded to call immediately with any sudden changes in vision. 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 Harden, continue routine follow up care with Dr. Dunn. Related to Diplopia Assessments Type Assessment Date assessment Diplopia assessment Diabetes mellitus type 2 2013 assessment Vitreous degeneration 4 assessment Dry eye syndrome assessment Secondary pigmentary degeneratio n of retina assessment Senile nuclear sclerosis 2013 Patient Care Teams Name Effective Dates (start - stop) Status Members No Information
--- OUTSIDE RECORDS SUMMARY | 2014-02-20 04:10 | XMS_ITS | Continuity of Care Document ---
Author Organization [facility] Address [address] [place] [address] Phone Care Team Providers Care Computer Graphics Illustrator Name Role Phone Fina STEVENS, Sandra Unavailable [...] New Patient, Moderate [facility] , [address] [place], [address], [place] tel:[phone] [facility] Di referred by Dr. Dunn for a possible PVD (chief complaint) double vision (chief complaint) Blood pressure reading (chief complaint) DiplopiaDiabetes mellitus type 2Vitreous degenerationDry eye syndromeSecondary pigmentary degeneration of retinaSenile nuclear sclerosis 4 Orgel Sandra. [address] [facility], [address], [place], [place], [id number] , [place]. tel:[phone] Specialist : Sergio Resendez, [address] [facility] [address], [place], [address]. tel:[phone] erring Provider: Yoseph Dunn, [address] , [place], [address]. tel:[phone] Family History Family Member Type Diagnosis Age At Onset Problem (finding) Family history of Blindness due to Diabetes-cousin Problem (finding) Family history of hyper tension Problem (finding) Family history of Heart Disease-Father Problem (finding) Family history of Diabe rodríguez mellitus Problem (finding) Family history of catar act Problem (finding) Family history of glauc margaret Payers Payer name Insurance type Covered green party ID Authoriza tion(s) No Information Social History Type Description Quantity Date Captured Comments Alcohol Use Details No Caffeine Use Details No Tobacco Use Status Heavy cigarette smok er (20-39 cigs/day) Smoking Status Current every day smoker 2013 Non-Smoking Tobacco Use Details : No Details Available : No Details Available [id number] SexFemale Vital Signs Date / Time: Height [...] from a retinal standpoint and with the PCP/Lining Vamper. Related to Diabetes mellitus type 2 - [...]
--- OUTSIDE RECORDS SUMMARY | 2014-02-20 04:10 | XMS_ITS | Continuity of Care Document ---
Author Organization [facility] Address [address] [place] [address] Phone Care Team Providers Care Veneer Department Manager Name Role Phone Fina STEVENS, Sandra Unavailable [...] New Patient, Moderate [facility] , [address] [place], [address], [place] tel:[phone] [facility] Di referred by Dr. Dunn for a possible PVD (chief complaint) double vision (chief complaint) Blood pressure reading (chief complaint) DiplopiaDiabetes mellitus type 2Vitreous degenerationDry eye syndromeSecondary pigmentary degeneration of retinaSenile nuclear sclerosis 4 Orgel Sandra. [address] [facility], [address], [place], [place], [address] , [place]. tel:[phone] Specialist : Sergio Resendez, [address] [facility] [address], [place], [address]. tel:[phone] erring Provider: Yoseph Dunn, [address] , [place], [address]. tel:[phone] Family History Family Member Type Diagnosis Age [...] No Details Available : No Details Available [id number] SexFemale Vital Signs Date / Time: Height [...] from a retinal standpoint and with the PCP/Certified Nurse. Related to Diabetes mellitus type 2 - [...]
--- OUTSIDE RECORDS SUMMARY | 2021-02-19 09:18 | XMS_ITS | Continuity of Care Document ---
Author Organization [facility] Address [address] [place] [address] Phone Care Team Providers Care Senior Speech Pathologist Name Role Phone George Arce Unavailable Unavailable Procedures Procedure Date Pfizer COVID Vaccine Admin Dose 1 COVID-19 Pfizer Pfizer COVID Vaccine Admin Dose 1 COVID-19 Pfizer Advance Directives Directive Yes / No Effective Date File Name No Information Encounters Encounter Description Practice Location Reason(s) For Visit Diagnoses Date Provider Providers Copied on Encounter [facility], [address] [place], [place], [id number], tel:[phone] [facility] No Information Eloy Diaz. [address], [place], [id number], [place]. tel:[phone] [facility], [address] [place], [place], [id number], tel:[phone] [facility] Encounter for immunization Eloy DUMONT George. [address] [place], [place], [id number], [place]. tel:[phone] Family History Family Member Type Diagnosis Age At Onset No Information Immunizations Vaccine Date Status Comments Pfizer COVID administered Source: [facility] unization Record Payers Payer name Insurance type Covered republican ID Authoriza tion(s) No Information Social History Type Description Quantity Date Captured Comments Sex Female Smoking Status No Information Sexual Orientation Straight or heterosexual Gender Identity Female Chief Complaint And Reason For Visit No Information Reason For Referral Reason For Referral No [...]
--- OUTSIDE RECORDS SUMMARY | 2021-02-19 09:18 | XMS_ITS | Continuity of Care Document ---
Author Organization [facility] Address [address] [place] [address] Phone Care Team Providers Care Track Hoe Operator Name Role Phone George Arce Unavailable Unavailable Procedures Procedure Date Pfizer COVID Vaccine Admin Dose 1 COVID-19 Pfizer Pfizer COVID Vaccine Admin Dose 1 COVID-19 Pfizer Advance Directives Directive Yes / No Effective Date File Name No Information Encounters Encounter Description Practice Location Reason(s) For Visit Diagnoses Date Provider Providers Copied on Encounter [facility], [address] [place], [place], [id number], tel:[phone] [facility] No Information Eloy Diaz. [address], [place], [id number], [place]. tel:[phone] [facility], [address], [place], [id number], tel:[phone] [facility] Encounter for immunization Eloy DUMONT George. [address], [place], [id number], [place]. tel:[phone] Family History Family Member Type Diagnosis Age At Onset No Information Immunizations Vaccine Date Status Comments Pfizer COVID administered Source: [facility] unization Record Payers Payer name Insurance type Covered libertarian ID Authoriza tion(s) No Information Social History [...]
--- OUTSIDE RECORDS SUMMARY | 2021-02-19 09:18 | XMS_ITS | Continuity of Care Document ---
Author Organization [facility] Address [address] [place] [address] Phone Care Team Providers Care Cargo Service Agent Name Role Phone George Arce Unavailable Unavailable Procedures Procedure Date Pfizer COVID Vaccine Admin Dose 1 COVID-19 Pfizer Pfizer COVID Vaccine Admin Dose 1 COVID-19 Pfizer Advance Directives Directive Yes / No Effective Date File Name No Information Encounters Encounter Description Practice Location Reason(s) For Visit Diagnoses Date Provider Providers Copied on Encounter [facility], [address] [place], [place], [id number], tel:[phone] [facility] No Information Eloy Diaz. [address], [place], [id number], [place]. tel:[phone] [facility], [address], [place], [id number], tel:[phone] [facility] Encounter for immunization Eloy DUMONT George. [address], [place], [id number], [place]. tel:[phone] Family History Family Member Type Diagnosis Age At Onset No Information Immunizations Vaccine Date Status Comments Pfizer COVID administered Source: [facility] unization Record Payers Payer name Insurance type Covered alliance party ID Authoriza tion(s) No Information Social [...]
--- OUTSIDE RECORDS SUMMARY | 2021-02-19 09:18 | XMS_ITS | Continuity of Care Document ---
Author Organization [facility] Address [address] [place] [address] Phone Care Team Providers Care Proposal Engineer Name Role Phone George Arce Unavailable Unavailable Procedures Procedure Date Pfizer COVID Vaccine Admin Dose 1 COVID-19 Pfizer Pfizer COVID Vaccine Admin Dose 1 COVID-19 Pfizer Advance Directives Directive Yes / No Effective Date File Name No Information Encounters Encounter Description Practice Location Reason(s) For Visit Diagnoses Date Provider Providers Copied on Encounter [facility], [address] [place], [place], [id number], tel:[phone] [facility] No Information Eloy Diaz. [address], [place], [id number], [place]. tel:[phone] [facility], [address], [place], [id number], tel:[phone] [facility] Encounter for immunization Eloy DUMONT George. [address], [place], [id number], [place]. tel:[phone] Family History Family Member Type Diagnosis Age At Onset No Information Immunizations Vaccine Date Status Comments Pfizer COVID administered Source: [facility] unization Record Payers Payer name Insurance [...]
--- OUTSIDE RECORDS SUMMARY | 2023-10-21 11:26 | XMS_ITS | Continuity of Care Document ---
Author Organization [facility] Address [address] [place] [address] Phone Care Team Providers Care Bag Adjuster Name Role Phone Brenda Nelson CNP Unavailable Unavailable Allergies, Adverse Reactions, Alerts Substance Reaction Status Criticality PROPOXYPHENE NAPSYLATE Active No In formation acetaminophen Active No Information tramadol Active No Information TRAMADOL HCL Active No Information CODEINE SULFATE Active No Informati on CODEINE PHOSPHATE Active No Informa tion Medications Medication Instructions Dosage Effective Dates (start - stop) Status Comments Humalog U-100 Insulin 100 unit/mL subcutaneous solution inject up to 150 units once daily with Insulin pump. - Active Protonix 40 mg tablet,delayed release take 1 tablet by oral route every day 40 MG - Active FreeStyle Zeinab 2 [place] Check BS twice per day - Active FreeStyle Zeinab 14 Day Sensor kit Check Bs twice per day - Active chlorthalidone 25 mg tablet take 1 tablet by oral route every day 25 MG - Active Ventolin HFA 90 mcg/actuation aerosol inhaler inhale 1 puff by inhalation route every 4 - 6 hours as needed 90 MCG - Active Synthroid 75 mcg tablet take 1 tablet by oral route every day 75 MCG - Active Seroquel 400 mg tablet 1 tablet QHS - Active Saccharomyces boulardii 250 mg capsule 1 QD - Active metformin 1,000 mg tablet take 1 tablet by oral route 2 times every day with morning and evening meals 1000 MG - Active lisinopril 20 mg tablet take 1 tablet by oral route every day 20 MG - Active lidocaine 5 % topical cream apply as needed 3 times carlson - Active Keppra 750 mg tablet take 1 tablet by or al route 2 times every day 750 MG - Active Depend Underwear For Women Small-Medium Change as necessary - Active Pads For Women Change as necessary - A ctive Aloe Vera Latex Gloves Use as necessary for urge incontinence. - Active Zanaflex 4 mg tablet take 0.5 tablet by oral route as needed at bed time. - Active gabapentin 100 mg capsule take 2 capsule by oral route 2 times every day 200 MG - Active Advance Directives Directive Yes / No Effective Date File Name No Information Encounters Encounter Description Practice Location Reason(s) For Visit Diagnoses Date Provider [facility], [address] [place] [address], [id number], [place] tel:[phone] [facility] No Information 4 Omar Gutierrez. [address] [place] [address], [id number], [place]. tel:[phone] [place] [address], [address] [place] [address], [address], [place] tel:[phone] [place] [address] No Information 3 [facility] Enrique. [address] [place] [address], [id number], [place]. tel:[phone] [place] [address], [address] [place] [address], [address], [place] tel:[phone] [facility] No Information 3 [facility] Enrique. [address] [place] [address], [id number], [place]. tel:[phone] [place] [address], [address] [place] [address], [address], [place] tel:[phone] [facility] No Information 3 [facility] Enriuqe. [address] [place] [address], [id number], [place]. tel:[phone] [place] [address], [address] [place] [address], [address], [place] tel:[phone] [facility] Diabetes (chief complaint) Type 2 diabetes mellitus with hyperglycemiaUrge incontinenceBipolar disorder, unspecifiedAnxiety disorder, unspecifiedEssential (primary) hypertensionSOBHypothyroid ismInsomniaGastroparesisGe neralized idiopathic epilepsy and epileptic syndromes, not intractable, with status epilepticus 3 [facility] Enrique. [address] [place] [address], [id number], [place]. tel:[phone] [facility], [address] [place] [address], [address], [place] tel:[phone] [facility] No Information 3 [facility] Enrique. [address] [place] [address], [id number], [place]. tel:[phone] [facility], [address] [place] [address], [address], [place] tel:[phone] [facility] Diabetes (chief complaint) Hyperlipid emia (chief complaint) Hypertensi on (chief complaint) Type 2 diabetes mellitus with hyperglycemiaEncounter for screening 3 [facility]. [address] [place] [address], [id number], [place]. tel:[phone] [facility], [address] [place] [address], [address], [place] tel:[phone] [facility] Dental examination 4 No Information [facility], [address] [place] [address], [address], [place] tel:[phone] [facility] Nonspecific (abnormal) findings on radiological and other examination of body structure; abnormal mammogram, unspecified 3 No Information [facility], [address] [place] [address], [address], [place] tel:[phone] [facility] Diabetes mellitus without mention of complication, type II or unspecified type, uncontrolledImpetigoUrge incontinence 3 No Information [facility], [address] [place] [address], [address], [place] tel:[phone] [facility] Special investigations and examinations; other specified examinations; other specified preoperative examination 3 [facility], [address] [place] [address], [address], [place] tel:[phone] [facility] Other cellulitis and abscess; other specified sitesOther specified diseases of hair and hair follicles 3 [facility], [address] [place] [address], [address], [place] tel:[phone] [facility] Symptomatic states associated with artificial menopauseSwelling, mass, or lump in head and neckDiabetes Mellitus, Type II, UncontrolledVaginitis and vulvovaginitis, unspecified 3 [facility], [address] [place] [address], [address], [place] tel:[phone] [facility] 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; lumbar intervertebral disc without myelopathy 3 [facility], [address] [place] [address], [address], [place] tel:[phone] [facility] Epilepsy, unspecified; without mention of intractable epilepsy 3 [facility], [address] [place] [address], [address], [place] tel:[phone] [facility] Nausea with vomitingGastroparesis 3 [facility], [address] [place] [address], [address], [place] tel:[phone] [facility] Esophageal refluxLump or mass in breastSwelling, mass, or lump in head and neckAnxiety Disorder 3 [facility], [address] [place] [address], [address], [place] tel:[phone] [facility] Other forms of epilepsy and recurrent seizures; without mention of intractable epilepsyEssential hypertension; unspecifiedAbdominal pain; left lower quadrantDiabetes mellitus without mention of complication, type II or unspecified type, uncontrolledNausea alone 3 [facility], [address] [place] [address], [address], [place] tel:[phone] [facility] Chronic pain syndromeDiabetes Mellitus, Type II, Uncontrolled 3 [facility], [address] [place] [address], [address], [place] tel:[phone] [facility] Peripheral autonomic neuropathy in disorders classified elsewherePain in joint; handFasciitis, unspecified 3 [facility], [address] [place] [address], [address], [place] tel:[phone] [facility] HeadacheDental examination 2 [facility], [address] [place] [address], [address], [place] tel:[phone] [facility] ImpetigoDiabetes Mellitus, Type II, Uncontrolled 2 [facility], [address] [place] [address], [address], [place] tel:[phone] [facility] Major depressive disorder, recurrent episode; mildOther personal history presenting hazards to health; other specified personal history presenting hazards to health; noncompliance with medical treatmentDiabetes Mellitus, Type II 2 [facility], [address] [place] [address], [address], [place] tel:[phone] [facility] Diabetes mellitus without mention of complication, type II or unspecified type, uncontrolledChest pain; other 2 [facility], [address] [place] [address], [address], [place] tel:[phone] [facility] Blood in stoolExternal hemorrhoids with other complication 2 [facility], [address] [place] [address], [address], [place] tel:[phone] [facility] Diabetes Mellitus, Type II, UncontrolledEpilepsy and recurrent seizures; Grand mal status 2 [facility], [address] [place] [address], [address], [place] tel:[phone] [facility] Backache, unspecifiedDiabetes Mellitus, Type IIObesityBipolar disorder, unspecifiedChronic pain syndromeEpilepsy and recurrent seizures; Grand mal statusAbnormal loss of weight and underweight; loss of weight No Information Family History Family Member Type Diagnosis Age At Onset Mother Problem (finding) Epilepsy Father Problem (finding) diabetes Father Problem (finding) Hypertension Father Problem (finding) heart attack Payers Payer name Insurance type Covered constitution party ID Authorqasima tipattie(s) [facility] Medicaid [id number] [place] [id number] Social History Type Description Quantity Date Captured Comments Alcohol Use Details Unknown Caffeine Use Details Unknown Tobacco Use Status No Information Smoking Status No Information Sex Female Sexual Orientation Choose not to disclose Gender Identity Female Chief Complaint And Reason For Visit No Information Plan Of Treatment Date Type Action Status Goal BMI. Due on due Goal ASCVD 10 year risk. Due on due Goal Foot exam. Due on due Goal GFR. Due on due Goal Hep B (). Due on due Goal Influenza vaccine. Due on due Goal Lipid panel. Due on due Goal Dilated eye exam. Due on September due Goal Urine microalbumin. Due on due Goal Pneumococcal vaccine. Due on due Goal Diabetic eye exam. Due on due Goal Hemoglobin A1C. Due on due Goal Eye exam. Due on due Goal Td vaccine. Due on due Goal Dental exam. Due on 024 due Goal Depression Follow-Up. Due on due Goal HIV screen. Due on due Goal BMI Adult Follow-Up. Due on due Goal Mammogram. Due on due Goal Tobacco Follow-Up. Due on Ma due Goal Hepatitis C screening. Due o n due Goal Tobacco screening. Due on No due Goal Pap/HPV testing. Due on due Goal PAP. Due on due Goal Unhealthy drug use screening . Due on due Goal Tdap. Due on due Goal HPV. Due on due Goal Influenza 6MOS+. Due on due Goal Depression screening. Due on due Goal Hep B (). Due on 023 due Goal Foot exam. Due on due Goal ASCVD 10 year risk. Due on N due Goal Influenza vaccine. Due on No due Goal Diabetic eye exam. Due on No due Goal Dilated eye exam. Due on Mar due Goal GFR. Due on due Goal Urine microalbumin. Due on N due Goal HPV. Due on due Goal Eye exam. Due on due Goal Influenza 6MOS+. Due on due Goal BMI. Due on due Goal PAP. Due on due Goal Unhealthy drug use screening . Due on due Goal Pap/HPV testing. Due on due Goal Td vaccine. Due on due Goal Tdap. Due on due Goal Dental exam. Due on due Goal Tobacco screening. Due on No due Goal BMI Adult Follow-Up. Due on due Goal Mammogram. Due on due Goal Depression Follow-Up. Due on due Goal Tobacco Follow-Up. Due on No due Goal Lipid panel. Due on due Goal Depression screening. Due on due Goal Pneumococcal vaccine. Due on due Goal Influenza 6MOS+. Due on due Goal ASCVD 10 year risk. Due on due Goal Lipid panel. Due on 023 due Goal Hep B (1st). Due on due Goal Diabetic eye exam. Due on No due Goal GFR. Due on due Goal Influenza vaccine. Due on No due Goal Urine microalbumin. Due on N due Goal Dilated eye exam. Due on Mar due Goal Foot exam. Due on due Goal HPV. Due on due Goal Td vaccine. Due on due Goal Dental exam. Due on due Goal Tdap. Due on due Goal Unhealthy drug use screening . Due on due Goal Mammogram. Due on due Goal Depression Follow-Up. Due on due Goal PAP. Due on due Goal BMI. Due on due Goal Tobacco screening. Due on No due Goal Pap/HPV testing. Due on due Goal Eye exam. Due on due Goal BMI Adult Follow-Up. Due on due Goal Tobacco Follow-Up. Due on No due Goal Depression screening. Due on due Goal Pneumococcal vaccine. Due on due Goal ASCVD 10 year risk. Due on due Goal Influenza vaccine. Due on No due Goal Urine microalbumin. Due on N due Goal Dilated eye exam. Due on Mar due Goal Foot exam. Due on due Goal GFR. Due on due Goal Hep B (1st). Due on 023 due Goal Diabetic eye exam. Due on No due Goal BMI. Due on due Goal Eye exam. Due on due Goal Mammogram. Due on due Goal PAP. Due on due Goal BMI Adult Follow-Up. Due on due Goal Tdap. Due on due Goal Influenza 6MOS+. Due on due Goal Dental exam. Due on due Goal Pap/HPV testing. Due on due Goal Tobacco Follow-Up. Due on No due Goal Unhealthy drug use screening . Due on due Goal Td vaccine. Due on due Goal HPV. Due on due Goal Tobacco screening. Due on No due Goal Depression Follow-Up. Due on due Goal Lipid panel. Due on due Goal Pneumococcal vaccine. Due on due Goal Depression screening. Due on due Goal ASCVD 10 year risk. Due on N due Goal Influenza vaccine. Due on No due Goal BMI Adult Follow-Up. Due on due Goal Influenza 6MOS+. Due on due Goal BMI. Due on due Goal Mammogram. Due on due Goal Dental exam. Due on 023 due Goal Tobacco screening. Due on No due Goal Eye exam. Due on due Goal Tdap. Due on due Goal Unhealthy drug use screening . Due on due Goal HPV. Due on due Goal Td vaccine. Due on due Goal PAP. Due on due Goal Pap/HPV testing. Due on due Goal Tobacco Follow-Up. Due on No due Goal Depression Follow-Up. Due on due Goal Pneumococcal vaccine. Due on due Goal Depression screening. Due on due Goal Lipid panel. Due on due Goal Foot exam. Due on 3 due Goal Hep B (1st). Due on due Goal Diabetic eye exam. Due on No due Goal Dilated eye exam. Due on Mar due Goal GFR. Due on due Goal Urine microalbumin. Due on N due Goal Urine microalbumin. Due on N due Goal ASCVD 10 year risk. Due on N due Goal Diabetic eye exam. Due on No due Goal Foot exam. Due on 3 due Goal Hep B (1st). Due on due Goal Influenza vaccine. Due on No due Goal Dilated eye exam. Due on Mar due Goal GFR. Due on due Goal BMI. Due on due Goal HPV. Due on due Goal Pap/HPV testing. Due on due Goal Influenza 6MOS+. Due on due Goal Depression Follow-Up. Due on due Goal Td vaccine. Due on due Goal PAP. Due on due Goal Tobacco Follow-Up. Due on No due Goal Eye exam. Due on due Goal Mammogram. Due on due Goal Dental exam. Due on due Goal Tdap. Due on due Goal Tobacco screening. Due on No due Goal Unhealthy drug use screening . Due on due Goal BMI Adult Follow-Up. Due on due Goal Depression screening. Due on due Goal Lipid panel. Due on 023 due Goal Pneumococcal vaccine. Due on due Goal Urine microalbumin. Due on N due Goal Hep B (1st). Due on 023 due Goal Dilated eye exam. Due on Mar due Goal Influenza vaccine. Due on No due Goal GFR. Due on due Goal ASCVD 10 year risk. Due on N due Goal Foot exam. Due on due Goal Diabetic eye exam. Due on No due Goal Pneumococcal vaccine. Due on due Goal BMI Adult Follow-Up. Due on due Goal Tobacco Follow-Up. Due on No due Goal Eye exam. Due on due Goal Dental exam. Due on due Goal Mammogram. Due on due Goal Influenza 6MOS+. Due on due Goal Lipid panel. Due on 023 due Goal Tdap. Due on due Goal Depression Follow-Up. Due on due Goal BMI. Due on due Goal HPV. Due on due Goal PAP. Due on due Goal Td vaccine. Due on due Goal Depression screening. Due on due Goal Tobacco screening. Due on No due Goal Pap/HPV testing. Due on due Goal Unhealthy drug use screening . Due on due History Of Present Illness Encounter Date Complaint History Of Prese nt Illness Diabetes Managing with: O ral medications. Diabetes Pertinent negati ves include blurred vision, chest pain, foot ulcers, urinary frequency, hypoglycemic episodes and slow healing wounds / sores. Hyperlipidemia Pertinent negati ves include chest pain, foot ulcer, hypoglycemic episodes, slow healing. Hypertension Pertinent negati ves include chest pain, confusion, dyspnea, fatigue, headache, irregular heartbeat/palpitations, tinnitus and visual disturbances. Instructions Date Instruction Additional Infor susan Instructions - Hyper tension: Elevated blood pressure is considered any readings >130/90. Avoid caffeine or foods that have excessive amounts of salt, as these are known to raise blood pressure levels. High stress lifestyles can result in chronically increased blood pressure. If you use tobacco, ask for help if you are ready to quit smoking or using chewing tobacco. Nicotine in any form raises blood pressure. Exercise helps lower blood pressure, as does losing weight. If you check your blood pressure at home or at the pharmacy, please write down the results and bring them to your next office visit. Do not take any blood pressure lowering medications if it is less than 100/60. Related to Essential (primary) hypertension Instructions - Diabe rodríguez (Goal Blood Sugar): Fasting blood sugar goal is between 70 and 129. Goal when checked at least two hours after a meal is between 70 and 179. Please call if your blood sugars are 400 or higher. Instructions - Diabetes (Health Diet): Please continue current medications and follow a healthy diet. Instructions - Diabetes (Low Blood Sugar): A low blood sugar (usually under 70) can cause symptoms such as sweating, confusion, weakness and passing out. If you are able to eat, you can treat low blood sugar with 3 or 4 glucose tablets, cp of juice or a tablespoon of sugar. If you are unable to eat, a family member can administer the Gvoke Hypopen. Instructions - Diabetes (Weight Loss): Decreasing your daily calories by 500 may lead to one pound weight loss per week. Instructions - Diabetes (Twice Daily Blood Sugar Monitoring): Please check your blood sugar twice daily, once in the morning and once 1 to 2 hours after your largest meal. Please bring a report of your blood sugar reading to every appointment. Related to Type 2 diabetes mellitus with hyperglycemia Assessments Type Assessment Date No Information
--- OUTSIDE RECORDS SUMMARY | 2023-10-21 11:26 | XMS_ITS | Continuity of Care Document ---
Author Organization [facility] Address [address] [place] [address] Phone Care Team Providers Care Top Lift Compressor Name Role Phone Brenda Nelson CNP Unavailable [...] 40 MG - Active FreeStyle Zeinab 2 [place] Check BS twice per day - Active [...] Location Reason(s) For Visit Diagnoses Date Provider [facility], [address] [place] [address], [id number], [place] tel:[phone] [facility] No Information 4 Omar Gutierrez. [address] [place] [address], [id number], [place]. tel:[phone] [place] [address], [address] [place] [address], [id number], [place] tel:[phone] [place] [address] No Information 3 [facility]. [address] [place] [address], [id number], [place]. tel:[phone] [place] [address], [address] [place] [address], [address], [place] tel:[phone] [facility] No Information 3 [facility]. [address] [place] [address], [id number], [place]. tel:[phone] [place] [address], [address] [place] [address], [address], [place] tel:[phone] [facility] No Information 3 [facility]. [address] [place] [address], [id number], [place]. tel:[phone] [place] [address], [address] [place] [address], [address], [place] tel:[phone] [facility] Diabetes (chief complaint) Type 2 diabetes mellitus with hyperglycemiaUrge incontinenceBipolar disorder, unspecifiedAnxiety disorder, unspecifiedEssential (primary) hypertensionSOBHypothyroid ismInsomniaGastroparesisGe neralized idiopathic epilepsy and epileptic syndromes, not intractable, with status epilepticus 3 [facility]. [address] [place] [address], [id number], [place]. tel:[phone] [facility], [address] [place] [address], [address], [place] tel:[phone] [facility] No Information 3 [facility]. [address] [place] [address], [id number], [place]. tel:[phone] [facility], [address] [place] [address], [address], [place] tel:[phone] [facility] Diabetes (chief complaint) Hyperlipid emia (chief complaint) Hypertensi on (chief complaint) Type 2 diabetes mellitus with hyperglycemiaEncounter for screening 3 [facility]. [address] [place] [address], [id number], [place]. tel:[phone] [facility], [address] [place] [address], [address], [place] tel:[phone] [facility] Dental examination 4 No Information [facility], [address] [place] [address], [address], [place] tel:[phone] [facility] Nonspecific (abnormal) findings on radiological and other examination of body structure; abnormal mammogram, unspecified 3 No Information [facility], [address] [place] [address], [address], [place] tel:[phone] [facility] Diabetes mellitus without mention of complication, type II or unspecified type, uncontrolledImpetigoUrge incontinence 3 No Information [facility], [address] [place] [address], [address], [place] tel:[phone] [facility] Special investigations and examinations; other specified examinations; other specified preoperative examination 3 [facility], [address] [place] [address], [address], [place] tel:[phone] [facility] Other cellulitis and abscess; other specified sitesOther specified diseases of hair and hair follicles 3 [facility], [address] [place] [address], [address], [place] tel:[phone] [facility] Symptomatic states associated with artificial menopauseSwelling, mass, or lump in head and neckDiabetes Mellitus, Type II, UncontrolledVaginitis and vulvovaginitis, unspecified 3 [facility], [address] [place] [address], [address], [place] tel:[phone] [facility] 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; lumbar intervertebral disc without myelopathy 3 [facility], [address] [place] [address], [address], [place] tel:[phone] [facility] Epilepsy, unspecified; without mention of intractable epilepsy 3 [facility], [address] [place] [address], [address], [place] tel:[phone] [facility] Nausea with vomitingGastroparesis 3 [facility], [address] [place] [address], [address], [place] tel:[phone] [facility] Esophageal refluxLump or mass in breastSwelling, mass, or lump in head and neckAnxiety Disorder 3 [facility], [address] [place] [address], [address], [place] tel:[phone] [facility] Other forms of epilepsy and recurrent seizures; without mention of intractable epilepsyEssential hypertension; unspecifiedAbdominal pain; left lower quadrantDiabetes mellitus without mention of complication, type II or unspecified type, uncontrolledNausea alone 3 [facility], [address] [place] [address], [address], [place] tel:[phone] [facility] Chronic pain syndromeDiabetes Mellitus, Type II, Uncontrolled 3 [facility], [address] [place] [address], [address], [place] tel:[phone] [facility] Peripheral autonomic neuropathy in disorders classified elsewherePain in joint; handFasciitis, unspecified 3 [facility], [address] [place] [address], [address], [place] tel:[phone] [facility] HeadacheDental examination 2 [facility], [address] [place] [address], [address], [place] tel:[phone] [facility] ImpetigoDiabetes Mellitus, Type II, Uncontrolled 2 [facility], [address] [place] [address], [address], [place] tel:[phone] [facility] Major depressive disorder, recurrent episode; mildOther personal history presenting hazards to health; other specified personal history presenting hazards to health; noncompliance with medical treatmentDiabetes Mellitus, Type II 2 [facility], [address] [place] [address], [address], [place] tel:[phone] [facility] Diabetes mellitus without mention of complication, type II or unspecified type, uncontrolledChest pain; other 2 [facility], [address] [place] [address], [address], [place] tel:[phone] [facility] Blood in stoolExternal hemorrhoids with other complication 2 [facility], [address] [place] [address], [address], [place] tel:[phone] [facility] Diabetes Mellitus, Type II, UncontrolledEpilepsy and recurrent seizures; Grand mal status 2 [facility], [address] [place] [address], [address], [place] tel:[phone] [facility] Backache, unspecifiedDiabetes Mellitus, Type IIObesityBipolar disorder, unspecifiedChronic pain syndromeEpilepsy and recurrent seizures; Grand mal statusAbnormal loss of weight and underweight; loss of weight No Information Family History Family Member Type Diagnosis Age At Onset Mother Problem (finding) Epilepsy Father Problem (finding) diabetes Father Problem (finding) Hypertension Father Problem (finding) heart attack Payers Payer name Insurance type Covered green party ID Authorqasima tipattie(s) [facility] Medicaid [id number] [place] [place] [id number] Social History Type Description Quantity Date Captured [...]
--- OUTSIDE RECORDS SUMMARY | 2023-10-21 11:26 | XMS_ITS | Continuity of Care Document ---
Author Organization [facility] Address [address] [place] [address] Phone Care Team Providers Care Personal Lines Account Executive Name Role Phone Brenda Nelson CNP Unavailable [...] 40 MG - Active FreeStyle Zeinab 2 [place] Check BS twice per day - Active [...] Location Reason(s) For Visit Diagnoses Date Provider [facility], [address] [place] [address], [id number], [place] tel:[phone] [facility] No Information 4 Omar Gutierrez. [address] [place] [address], [id number], [place]. tel:[phone] [place] [address], [address] [place] [address], [address], [place] tel:[phone] [place] [address] No Information 3 [facility]. [address] [place] [address], [id number], [place]. tel:[phone] [place] [address], [address] [place] [address], [address], [place] tel:[phone] [facility] No Information 3 [facility]. [address] [place] [address], [id number], [place]. tel:[phone] [place] [address], [address] [place] [address], [address], [place] tel:[phone] [facility] No Information 3 [facility]. [address] [place] [address], [id number], [place]. tel:[phone] [place] [address], [address] [place] [address], [address], [place] tel:[phone] [facility] Diabetes (chief complaint) Type 2 diabetes mellitus with hyperglycemiaUrge incontinenceBipolar disorder, unspecifiedAnxiety disorder, unspecifiedEssential (primary) hypertensionSOBHypothyroid ismInsomniaGastroparesisGe neralized idiopathic epilepsy and epileptic syndromes, not intractable, with status epilepticus 3 [facility]. [address] [place] [address], [id number], [place]. tel:[phone] [facility], [address] [place] [address], [address], [place] tel:[phone] [facility] No Information 3 [facility]. [address] [place] [address], [id number], [place]. tel:[phone] [facility], [address] [place] [address], [address], [place] tel:[phone] [facility] Diabetes (chief complaint) Hyperlipid emia (chief complaint) Hypertensi on (chief complaint) Type 2 diabetes mellitus with hyperglycemiaEncounter for screening 3 [facility]. [address] [place] [address], [id number], [place]. tel:[phone] [facility], [address] [place] [address], [address], [place] tel:[phone] [facility] Dental examination 4 No Information [facility], [address] [place] [address], [address], [place] tel:[phone] [facility] Nonspecific (abnormal) findings on radiological and other examination of body structure; abnormal mammogram, unspecified 3 No Information [facility], [address] [place] [address], [address], [place] tel:[phone] [facility] Diabetes mellitus without mention of complication, type II or unspecified type, uncontrolledImpetigoUrge incontinence 3 No Information [facility], [address] [place] [address], [address], [place] tel:[phone] [facility] Special investigations and examinations; other specified examinations; other specified preoperative examination 3 [facility], [address] [place] [address], [address], [place] tel:[phone] [facility] Other cellulitis and abscess; other specified sitesOther specified diseases of hair and hair follicles 3 [facility], [address] [place] [address], [address], [place] tel:[phone] [facility] Symptomatic states associated with artificial menopauseSwelling, mass, or lump in head and neckDiabetes Mellitus, Type II, UncontrolledVaginitis and vulvovaginitis, unspecified 3 [facility], [address] [place] [address], [address], [place] tel:[phone] [facility] 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; lumbar intervertebral disc without myelopathy 3 [facility], [address] [place] [address], [address], [place] tel:[phone] [facility] Epilepsy, unspecified; without mention of intractable epilepsy 3 [facility], [address] [place] [address], [address], [place] tel:[phone] [facility] Nausea with vomitingGastroparesis 3 [facility], [address] [place] [address], [address], [place] tel:[phone] [facility] Esophageal refluxLump or mass in breastSwelling, mass, or lump in head and neckAnxiety Disorder 3 [facility], [address] [place] [address], [address], [place] tel:[phone] [facility] Other forms of epilepsy and recurrent seizures; without mention of intractable epilepsyEssential hypertension; unspecifiedAbdominal pain; left lower quadrantDiabetes mellitus without mention of complication, type II or unspecified type, uncontrolledNausea alone 3 [facility], [address] [place] [address], [address], [place] tel:[phone] [facility] Chronic pain syndromeDiabetes Mellitus, Type II, Uncontrolled 3 [facility], [address] [place] [address], [address], [place] tel:[phone] [facility] Peripheral autonomic neuropathy in disorders classified elsewherePain in joint; handFasciitis, unspecified 3 [facility], [address] [place] [address], [address], [place] tel:[phone] [facility] HeadacheDental examination 2 [facility], [address] [place] [address], [address], [place] tel:[phone] [facility] ImpetigoDiabetes Mellitus, Type II, Uncontrolled 2 [facility], [address] [place] [address], [address], [place] tel:[phone] [facility] Major depressive disorder, recurrent episode; mildOther personal history presenting hazards to health; other specified personal history presenting hazards to health; noncompliance with medical treatmentDiabetes Mellitus, Type II 2 [facility], [address] [place] [address], [address], [place] tel:[phone] [facility] Diabetes mellitus without mention of complication, type II or unspecified type, uncontrolledChest pain; other 2 [facility], [address] [place] [address], [address], [place] tel:[phone] [facility] Blood in stoolExternal hemorrhoids with other complication 2 [facility], [address] [place] [address], [address], [place] tel:[phone] [facility] Diabetes Mellitus, Type II, UncontrolledEpilepsy and recurrent seizures; Grand mal status 2 [facility], [address] [place] [address], [address], [place] tel:[phone] [facility] Backache, unspecifiedDiabetes Mellitus, Type IIObesityBipolar disorder, unspecifiedChronic pain syndromeEpilepsy and recurrent seizures; Grand mal statusAbnormal loss of weight and underweight; loss of weight No Information Family History Family Member Type Diagnosis Age At Onset Mother Problem (finding) Epilepsy Father Problem (finding) diabetes Father Problem (finding) Hypertension Father Problem (finding) heart attack Payers Payer name Insurance type Covered constitution party ID Authorqasima tipattie(s) [facility] Medicaid [id number] [employer] [place] [id number] Social History Type Description Quantity Date Captured [...]
--- OUTSIDE RECORDS SUMMARY | 2023-10-21 11:26 | XMS_ITS | Continuity of Care Document ---
Author Organization [facility] Address [address] [place] [address] Phone Care Team Providers Care Resistor Coater Name Role Phone Brenda Nelson CNP Unavailable [...] 40 MG - Active FreeStyle Zeinab 2 [place] Check BS twice per day - Active [...] Location Reason(s) For Visit Diagnoses Date Provider [facility], [address] [place] [address], [address], [place] tel:[phone] [facility] No Information 4 Omar Gutierrez. [address] [place] [address], [id number], [place]. tel:[phone] [place] [address], [address] [place] [address], [address], [place] tel:[phone] [place] [address] No Information 3 [facility] Enrique. [address] [place] [address], [id number], [place]. tel:[phone] [place] [address], [address] [place] [address], [address], [place] tel:[phone] [facility] No Information 3 [facility] Enrique. [address] [place] [address], [id number], [place]. tel:[phone] [place] [address], [address] [place] [address], [address], [place] tel:[phone] [facility] No Information 3 [facility] Enrique. [address] [place] [address], [id number], [place]. tel:[phone] [place] [address], [address] [place] [address], [address], [place] tel:[phone] [facility] Diabetes (chief complaint) Type 2 diabetes mellitus with hyperglycemiaUrge incontinenceBipolar disorder, unspecifiedAnxiety disorder, unspecifiedEssential (primary) hypertensionSOBHypothyroid ismInsomniaGastroparesisGe neralized idiopathic epilepsy and epileptic syndromes, not intractable, with status epilepticus 3 [facility] Enrique. [address] [place] [address], [id number], [place]. tel:[phone] [facility], [address] [place] [address], [address], [place] tel:[phone] [facility] No Information 3 [facility] Enrique. [address] [place] [address], [id number], [place]. tel:[phone] [facility], [address] [place] [address], [address], [place] tel:[phone] [facility] Diabetes (chief complaint) Hyperlipid emia (chief complaint) Hypertensi on (chief complaint) Type 2 diabetes mellitus with hyperglycemiaEncounter for screening 3 [facility]. [address] [place] [address], [id number], [place]. tel:[phone] [facility], [address] [place] [address], [address], [place] tel:[phone] [facility] Dental examination 4 No Information [facility], [address] [place] [address], [address], [place] tel:[phone] [facility] Nonspecific (abnormal) findings on radiological and other examination of body structure; abnormal mammogram, unspecified 3 No Information [facility], [address] [place] [address], [address], [place] tel:[phone] [facility] Diabetes mellitus without mention of complication, type II or unspecified type, uncontrolledImpetigoUrge incontinence 3 No Information [facility], [address] [place] [address], [address], [place] tel:[phone] [facility] Special investigations and examinations; other specified examinations; other specified preoperative examination 3 [facility], [address] [place] [address], [address], [place] tel:[phone] [facility] Other cellulitis and abscess; other specified sitesOther specified diseases of hair and hair follicles 3 [facility], [address] [place] [address], [address], [place] tel:[phone] [facility] Symptomatic states associated with artificial menopauseSwelling, mass, or lump in head and neckDiabetes Mellitus, Type II, UncontrolledVaginitis and vulvovaginitis, unspecified 3 [facility], [address] [place] [address], [address], [place] tel:[phone] [facility] 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; lumbar intervertebral disc without myelopathy 3 [facility], [address] [place] [address], [address], [place] tel:[phone] [facility] Epilepsy, unspecified; without mention of intractable epilepsy 3 [facility], [address] [place] [address], [address], [place] tel:[phone] [facility] Nausea with vomitingGastroparesis 3 [facility], [address] [place] [address], [address], [place] tel:[phone] [facility] Esophageal refluxLump or mass in breastSwelling, mass, or lump in head and neckAnxiety Disorder 3 [facility], [address] [place] [address], [address], [place] tel:[phone] [facility] Other forms of epilepsy and recurrent seizures; without mention of intractable epilepsyEssential hypertension; unspecifiedAbdominal pain; left lower quadrantDiabetes mellitus without mention of complication, type II or unspecified type, uncontrolledNausea alone 3 [facility], [address] [place] [address], [address], [place] tel:[phone] [facility] Chronic pain syndromeDiabetes Mellitus, Type II, Uncontrolled 3 [facility], [address] [place] [address], [address], [place] tel:[phone] [facility] Peripheral autonomic neuropathy in disorders classified elsewherePain in joint; handFasciitis, unspecified 3 [facility], [address] [place] [address], [address], [place] tel:[phone] [facility] HeadacheDental examination 2 [facility], [address] [place] [address], [address], [place] tel:[phone] [facility] ImpetigoDiabetes Mellitus, Type II, Uncontrolled 2 [facility], [address] [place] [address], [address], [place] tel:[phone] [facility] Major depressive disorder, recurrent episode; mildOther personal history presenting hazards to health; other specified personal history presenting hazards to health; noncompliance with medical treatmentDiabetes Mellitus, Type II 2 [facility], [address] [place] [address], [address], [place] tel:[phone] [facility] Diabetes mellitus without mention of complication, type II or unspecified type, uncontrolledChest pain; other 2 [facility], [address] [place] [address], [address], [place] tel:[phone] [facility] Blood in stoolExternal hemorrhoids with other complication 2 [facility], [address] [place] [address], [address], [place] tel:[phone] [facility] Diabetes Mellitus, Type II, UncontrolledEpilepsy and recurrent seizures; Grand mal status 2 [facility], [address] [place] [address], [address], [place] tel:[phone] [facility] Backache, unspecifiedDiabetes Mellitus, Type IIObesityBipolar disorder, unspecifiedChronic pain syndromeEpilepsy and recurrent seizures; Grand mal statusAbnormal loss of weight and underweight; loss of weight No Information Family History Family Member Type Diagnosis Age At Onset Mother Problem (finding) Epilepsy Father Problem (finding) diabetes Father Problem (finding) Hypertension Father Problem (finding) heart attack Payers Payer name Insurance type Covered libertarian ID Authorqasima tipattie(s) [facility] Medicaid [id number] [place] [id number] Social History Type Description Quantity Date Captured [...]
--- OUTSIDE RECORDS SUMMARY | 2023-10-23 08:45 | XMS_ITS ---
Author Organization [facility] Address [address] [place], [place] [address] [address] Care Team Providers Care Chemical Equipment Controller Name Role Phone Enrique Hebert Primary Care Provider DR. Mario Kwok Unavailable [phone] Luis STEVENS, [place] Unavailable Unavailable Encounters Encounter Location Date Provider Diagnosis [facility] [address] [place] [address] [place] [address] 10/23/2023 Mario Castillo Plan Of Treatment No Information Progress Notes * ORGANBRIDGETYDOB:1975 ( 49 yo F)Acc No.[id number]:10/23/2023 Patient:?ORGANADDIE :?TC PardoOB:1975???Age:48 Y ???Sex:FemaleDate:4Phone:[phone]:[address] [place], [place] [id number]:Enrique [facility] * Electronic signature of DR. Mario Castillo DPM on 04/12/2025 at 03:25 PM EST Sign off status: Pending * Provider: Joel Castillo DPM Date: 0 10/23/2023 Generated for Printing/Faxing/eTransmitting on:?04/12/2025 03:25 PM EST
--- OUTSIDE RECORDS SUMMARY | 2023-11-13 09:00 | XMS_ITS ---
Author Organization [facility] Address [address] [place], [place] [address] [address] Care Team Providers Care Radio Aerial Installer Name Role Phone Enrique Hebert Primary Care Provider DR. Mario Kwok Unavailable [phone] Luis STEVENS, [place] Unavailable Unavailable Encounters Encounter Location Date Provider Diagnosis [facility] [address] [place] [address] 11/13/2023 Mario Castillo Plan Of Treatment No Information Progress Notes * ORGANBRIDGETYDOB:1975 ( 49 yo F)Acc No.[id number]:11/13/2023 Patient:?ORGANADDIE :?TC PardoOB:1975???Age:48 Y ???Sex:FemaleDate:4Phone:[phone]:[address] [place], [place] [address]Jyu:Enrique [facility] * Electronic signature of DR. Mario Castillo DPM on 04/12/2025 at 03:25 PM EST Sign off status: Pending * Provider: Joel Castillo DPM Date: 0 11/13/2023 Generated for Printing/Faxing/eTransmitting on:?04/12/2025 03:25 PM EST
--- OUTSIDE RECORDS SUMMARY | 2024-01-27 04:45 | XMS_ITS ---
Author Organization [facility] Address [address] [place], [place] [address] [address] Care Team Providers Care Aerial Crop Duster Name Role Phone Enrique Hebert Primary Care Provider DR. Mario Kwok Unavailable [phone] Luis STEVENS, [place] Unavailable Unavailable Encounters Encounter Location Date Provider Diagnosis [facility] [address] [place] [address] 01/27/2024 Mario Castillo Plan Of Treatment No Information Progress Notes * ORGANBRIDGETYDOB:1975 ( 49 yo F)Acc No.[id number]:01/27/2024 Patient:?ORGANADDIE :?TC PardoOB:1975???Age:48 Y ???Sex:FemaleDate:01/27/2024hone:[phone]:[address] [place], [place] [id number]:Enrique [facility] * Electronic signature of DR. Mario Castillo DPM on 04/12/2025 at 03:25 PM EST Sign off status: Pending * Provider: Joel Castillo DPM Date: 0 01/27/2024 Generated for Printing/Faxing/eTransmitting on:?04/12/2025 03:25 PM EST
--- OUTSIDE RECORDS SUMMARY | 2024-03-15 08:45 | XMS_ITS ---
Author Organization [facility] Address [address] [place], [place] [address] [address] Care Team Providers Care Composition Molder Name Role Phone Enrqiue Hebert Primary Care Provider DR. Mario Kwok Unavailable [phone] Luis STEVENS, [facility] Unavailable Unavailable REASON FOR VISIT C/O SEVERE BURNING WHILE WB. WALKING ON [place] Encounters Encounter Location Date Provider Diagnosis [facility] [address] [place] [address] 03/15/2024 Mario Castillo Plan Of Treatment No Information Progress Notes * CAITY SANDERSOB:1975 ( 49 yo F)Acc No.[id number]:03/15/2024 Progress Notes Patient: ADDIE ZUÑIGA :?JAS PardoMDOB:1975???Age:48 Y ???Sex:FemaleDate:03/15/2024hone:[phone]:[address] [place], [place] [id number]:Enrique [facility] Subjective: * Chief Complaints: * C /O SEVERE BURNING WHILE WB. WALKING ON [place] * Electronic signature of DR. Mario Castillo DPM on 04/12/2025 at 03:21 PM EST Sign off status: Pending * Provider: Joel Castillo DPM Date: Generated for Printing/Faxing/eTransmitting on:?04/12/2025 03:21 PM EST
--- OUTSIDE RECORDS SUMMARY | 2024-04-20 09:15 | XMS_ITS ---
Author Organization [facility] Address [address] [place], [place] [address] [address] Care Team Providers Care Delinquent Account Clerk Name Role Phone Enrique Hebert Primary Care Provider DR. Mario Kwok Unavailable [phone] Luis STEVENS, [facility] Unavailable Unavailable REASON FOR VISIT STITCH REMOVAL Encounters Encounter Location Date Provider Diagnosis [facility] [address] [place] [address] [place] [address] 04/20/2024 Mario Castillo Plan Of Treatment No Information Progress Notes * BRIDGET SANDERSYDOB:1975 ( 49 yo F)Acc No.[id number]:04/20/2024 Patient:?ADDIE SANDERS :?TC PardoOB:1975???Age:49 Y ???Sex:FemaleDate:04/20/2024hone:[phone]:[address] [place], [place] [id number]:Enrique [facility] Subjective: * Chief Complaints: * S TITCH REMOVAL * Electronic signature of DR. Mario Castillo DPM on 04/12/2025 at 03:23 PM EST Sign off status: Pending * Provider: Joel Castillo DPM Date: 06/20/2023 Generated for Printing/Faxing/eTransmitting on:?04/12/2025 03:23 PM EST
--- OUTSIDE RECORDS SUMMARY | 2024-05-24 07:45 | XMS_ITS ---
Author Organization [facility] Address [address] [place] [address] [place] [address] Care Team Providers Care Business Resiliency Manager Name Role Phone Enrique Hebert Primary Care Provider DR. Mario Kwok Unavailable [phone] Luis STEVENS, [place] Unavailable Unavailable Encounters Encounter Location Date Provider Diagnosis [facility] [address] [place] [address] 05/24/2024 Mario Castillo Plan Of Treatment No Information Progress Notes * ORGANBRIDGETYDOB:1975 ( 49 yo F)Acc No.[id number]:05/24/2024 Patient:?ORGANADDIE :?TC PardoOB:1975???Age:49 Y ???Sex:FemaleDate:4Phone:[phone]:[address] [place], [place] [address]Kmz:Enrique [facility] * Electronic signature of DR. Mario Castillo DPM on 04/12/2025 at 03:25 PM EST Sign off status: Pending * Provider: Joel Castillo DPM Date: Generated for Printing/Faxing/eTransmitting on:?04/12/2025 03:25 PM EST
--- OUTSIDE RECORDS SUMMARY | 2025-03-14 08:30 | XMS_ITS ---
Author Organization [facility] Address [address] [place], [place] [address] [address] Care Team Providers Care Service Now Developer Name Role Phone Enrique Hebert Primary Care Provider DR. Mario Kwok Unavailable [phone] Luis STEVENS, [facility] Unavailable Unavailable REASON FOR VISIT 1 YEAR FOLLOW UP Encounters Encounter Location Date Provider Diagnosis [facility] [address] [place] [address] [place] [address] 03/14/2025 Mario Castillo Plan Of Treatment No Information Progress Notes * BRIDGET SANDERSYDOB:1975 ( 49 yo F)Acc No.[id number]:03/14/2025 Patient:?ADDIE SANDERS :?JAS PardoMDOB:1975???Age:49 Y ???Sex:FemaleDate:03/14/2025Phone:[phone]:[address] [place], [place] [id number]:Enrique [facility] Subjective: * Chief Complaints: * 1 YEAR FOLLOW UP Billing Information: * Procedure Codes: * Electronic signature of DR. Mario Castillo DPM on 04/12/2025 at 03:24 PM EST Sign off status: Pending * Provider: Joel Castillo DPM Date: Generated for Printing/Faxing/eTransmitting on:?04/12/2025 03:24 PM EST
--- OUTSIDE RECORDS SUMMARY | 2025-04-04 06:20 | XMS_ITS | Continuity of Care Document ---
Author Organization [facility] Address [address] [place] [address] Phone Care Team Providers Care Biometric Fingerprinting Technician Name Role Phone Andrés Lopez DO Primary Care Provider [phone] Andrés Lopez DO Attending Provider Vivien Arceo Attending Provider Unavailable Care Teams Patient Care Team Team Status: Active Member Role/Relationship Status Dates Andrés Lopez DO Primary Care Provider Active Visit Care Team Team Status: Inactive Member Role/Relationship Status Dates Andrés Lopez DO Primary Care Provider Active Start: February 20, 2025 End: February 20, 2025Bruno Weber ProviderActiveStart: February 20, 2025 End: February 20, 2025 Patient Care Team Team Status: Active Member Role/Relationship Status Dates Andrés Lopez DO Primary Care Provider Active Start: March 16, 2025 Vivien Padron ProviderActiveStart: March 16, 2025 Patient Care Team Team Status: Inactive Member Role/Relationship Status Dates Andrés Lopez DO Primary Care Provider Active Start: April 04, 2025 End: April 04, 2025Bruno Weber ProviderActiveStart: April 04, 2025 End: April 04, 2025 Chief Complaint and Reason for Visit Chief Complaint Admit Date est new patient February 20, 2025 9:44am Amb Documentation March 16, 2025 1 :12pm 1 month follow up April 04, 2025 10:44am Reason for Visit Admit Date BMI 50.0-59.9, adult February 20 9:44am Breast cancer screening by mammogram Sep tember 2024 9:44am Essential hypertension February 20, 2 025 9:44am Mixed hyperlipidemia February 20 9:44am Morbid obesity due to excess calories Se ptember 2024 9:44am Neurogenic bladder as late e ffect of cerebrovascular accident (CVA) February 20, 2025 9:44am Nicotine use disorder February 20 9:44am Noncompliance with medications February 20, 2025 9:44am Peripheral vascular disease February 202024 9:44am Right knee pain February 20, 2025 9:44am Type 2 diabetes mellitus wit h circulatory disorder, with long-term current February 20, 2025 9:44am Bipolar 1 disorder February 20, 2025 9:44am BMI 50.0-59.9, adult April 04, 2025 10:44am Essential hypertension April 04 10:44am Mixed hyperlipidemia April 04, 2025 10:44am Morbid obesity due to excess calories No vember 2024 10:44am Neurogenic bladder as late e ffect of cerebrovascular accident (CVA) April 04, 2025 10:44am Nicotine use disorder April 04 10:44am Noncompliance with medications April 04, 2025 10:44am Right knee pain April 04, 2025 10:44am Type 2 diabetes mellitus wit h circulatory disorder, with long-term current April 04, 2025 10:44am Allergies, Adverse Reactions, Alerts Allergen Type Severity Reaction Last Updated Verified Status Comments acetaminophen Allergy Unknown hives April 042024 10:56am Yes Active codeineAllergyUnknownVomiting, hivesNovember 2024 10:56amYesActive ibuprofenAllergyUnknownUnknown Reaction, shuts down kidneysApril 04, 2025 10:56amYesActive shuts down my kidneys .ketorolacAllergyUnknownVomiting, hives/seizuresApril 04, 2025 10:56amYesActivepropoxypheneAllergyUnknown Vomiting, hivesNovember 2024 10:56amYesActivetramadolAllergyUnknown Vomiting, hivesNov2024 10:56amYesActivevancomycinAllergyUnknown Unknown Reaction, hivesNovember 2024 10:56amYesActive shuts down my kidneys .adhesive tapeAllergyUnknownHivesNovember 2024 10:56amYesActive fentanylAllergyUnknownHivesNovember 2024 10:56amYesActiveIodinated Contrast MediaAllergyUnknownUnknown ReactionNovember 2024 10:56amYesActive shuts down my kidneys .latexAllergyUnknownHivesNovember 2024 10:56amYes ActivelinezolidAdverse ReactionUnknownVomitingNovember 2024 10:56amYes Activeadhesive tape, iv dye, latexAllergyUnknownitchyApril 2022 2:02pmNo ActiveFENTENOLAllergyUnknownUnknown ReactionSeptember 2024 8:54amNoActive Social History Smoking Status Status Start Date End Date Date of Observa tion Smokes tobacco daily (finding) February 20, 2025 9:58am Observation Status Observation Response Date of Response Legal Sex Female (finding) [facility] 1974 Family History Relationship Condition Age at Onset Recorded Date/T megan father Coronary artery disease Unknown Diabetes mellitusUnknownHypertensionUnknownmotherSeizureUnknownbrotherBlood disorderUnknownbrotherBlood disorderUnknownfatherDiabetes mellitusUnknown HypertensionUnknownHeart diseaseUnknowngrandparentDeceasedUnknowngrandparent DeceasedUnknowngrandparentDeceasedUnknowngrandparentDeceasedUnknownmotherFamily history of thyroid diseaseUnknown Problems Active Problems Problem Diagnosis/Recorded Date Onset Date Stat us Neurogenic bladder as late e ffect of cerebrovascular accident (CVA) February 20, 2025 9:21am Unknown A ctive Staring episodes September 06, 2018 5:36pm Unknown Active Breast cancer screening by mammogram February 20, 025 9:26am Unknown Active Diabetes July 23, 2018 9:46am Unknown Activ e Abscess of toenail on left foot August 20, 2022 12:10 pm Unknown Active Depression May 14, 2019 11:55pm Unknown Active Gait difficulty September 09, 2018 12:05pm Unknown Active Mixed hyperlipidemia February 20, 2025 8:49am Unkno wn Active Seizures September 07, 2018 5:25am Unknown Acti ve Syncope and collapse January 23, 2019 3:00pm Unknow n Active Nicotine use disorder February 20, 2025 8:48am Unkn own Active Peripheral vascular disease August 21, 2022 9:09am Un known Active Essential hypertension February 20, 2025 8:49am Unk nown Active Morbid obesity due to excess calories February 20, 2025 8:51am Unknown Active Type 2 diabetes mellitus wit h circulatory disorder, with long-term current use of insulin February 20, 2025 8:48am Unknown Active Essential hypertension with goal blood pressure less than 130/80 January 23, 2019 3:01pm Unknown Active BMI 50.0-59.9, adult February 20, 2025 8:52am Unkno wn Active Bipolar 1 disorder September 06, 2018 5:37pm Unknown Active Noncompliance with medications January 23, 2019 3:0 0pm Unknown Active Right knee pain February 20, 2025 9:23am Unknown Active Pacemaker January 23, 2019 3:02pm Unknown A ctive Left-sided weakness September 08, 2018 11:38am Unknown Active Cellulitis of left foot August 20, 2022 12:10pm Unkno wn Active Medications Medication Status Dose Units Route Directions Qty Days Refills S tart Date Stop Date End Date Reason(s) Instructions Adherence Sodium Chloride (Saline Woun d Wash) 0.9 % aerosol,spray Discontinued 1 APPLIC TOPICAL Twice daily 210 6April 2019 11:00pmApril 2021 1:45pmAspirin (Aspir-81) 81 mg Tablet,Delayed Release (Dr/Ec)Irmppqazkgyz02GAVRTtsrlWvtai 2018 12:00am August 20, 2022 2:10amAtorvastatin 20 mg cmktygSuyyekjfeqfi96HVZROizpfRdacn 2018 12:00amMarch 2022 2:10amQuetiapine 300 mg esswqvCgnawvaqubxx817 MGPOBedtimeMarch 2018 12:00amSeptember 2018 10:28amTizanidine 4 mg vvwxamAfcgiqqdlhtz2NHKHFtyyhtzAxidd 2018 12:00amApril 2018 1:59pm Venlafaxine 150 mg capsule,extended release 84ejIsrzvigbdbdl793NUJLMyfnkEedkv 2018 12:00amOctober 2018 7:33amLevothyroxine 75 mcg dnyjvhNrtzne62EHO PODailyMarch 2018 12:00amComplies with drug therapyZonisamide (Zonegran) 100 mg ClvkiqvKwhufkmhmumq259EGFNMqqdugaMowxr 2018 12:00amApril 2018 2:00pmMetformin 1,000 mg gmlmmjZmeyld5272VFMBPikxm dailyMem[facility] 2018 12:00am Complies with drug therapyPromethazine 25 mg JxyzaySupbzsdffozo07YKXYVbetb 6 hours as needed for NauseaMemorial Health System 2018 12:amApril 2018 1:59pmLosartan 25 mg vqksouPqyskhbtmjyq16MDUMUrvqbQkiay 2018 12:00amOctober 2018 7:31amOndansetron 4 mg Tablet,SxsxfdevlybcnpVlwiosbgemzr3AOIXScav times daily as needed for Nausea And VomitingMemorial Health System 2018 12:00amApril 2018 1:58pm Naratriptan 2.5 mg TabletDiscontinuedAs DirectedMemorial Health System 2018 12:amApril 2018 1:57pmNortriptyline (Pamelor) 50 mg UwlwzqsWyryzqadonox27FIHWSmznb March 2018 12:amApril 2018 1:57pmInsulin Lispro (Admelog Solostar U-100 Insulin) 100 unit/mL Insulin PenDiscontinuedUNITSUBCUTBefore meals and at bedtimeMemorial Health System 2018 12:00amApril 2018 9:01amMetoprolol Tartrate 25 mg IgsffhQxtrrmnczyqe41YEJVQxmqf dailyMemorial Health System 2018 12:00amApril 2018 1:57pmPregabalin (Lyrica) 200 mg aazhaboJtpxhrtbvbny092IYTNTpdmeSzuye 2018 12:00amApril 2018 1:58pmInsulin Detemir U-100 (Levemir U-100 Insulin) 100 unit/mL ZzhzguczBvotbwocagri55MRYDPVXXZAWrrrd dailyMarch 2018 12:00amApril 2018 8:11pmOmeprazole Magnesium (Prilosec) 10 mg Susp,Delayed Release For CwupdMpbrgankigux43TJYGNroywVrojw 2018 12:00amSeptember 2024 11:03am Pregabalin (Lyrica) 300 mg FehhdxcYxwgcfenjqld542RDKPFzqtkpkUeckc 2018 11:00pmApril 2018 12:12pmTizanidine (Zanaflex) 4 mg JwjcgyBigeukgycbkt9JA POThree times daily as needed for Muscle SpasmApril 2018 11:00pmApril 2018 12:12pmMeloxicam 15 mg JaetggJbrgsnvhcwdg04BEJFSqqpkWpujj 2018 11:00pmSeptember 2018 10:28amAmitriptyline 25 mg QpvwunRrrudeoxfbbz19UJMQ Daily at bedtimeApril 2018 11:00pmMar 2022 2:10amPolyethylene Glycol 3350 (Miralax) 17 gram/dose NvpxckKwqdwcghdvyg70XYQDCjhqcSqodr 2018 11:00pmOctcaverna memorial hospital 2018 7:33amOxybutynin Chloride 5 mg DpazzmBybwsnvnrqvh6DIMJ Twice dailyApril 2018 11:00pmOctcaverna memorial hospital 2018 7:33amChlorhexidine Gluconate (Hibiclens) 4 % FdloupBwxbknkdnczp8TOUYWIAPMLNLCUczha a WeekApril 2018 11:00pmOctcaverna memorial hospital 2018 7:29amLidocaine 5 % OintmentDiscontinued1 APPLICTOPICALTwice daily as needed for PainApril 2018 11:00pmOctober 2018 7:31amDivalproex 250 mg Tablet,Delayed Release (Dr/Ec)Wbptinbrbjbw441AQNS Twice dailyApril 2018 11:00pmApril 2018 12:12pmInsulin Lispro (Admelog U-100 Insulin Lispro) 100 unit/mL SolutionDiscontinued0.ROUTE.COMPLEX Protocol: *If the corrective scale dose has been administered within the past 4 hours, do not use corrective scale again unless approved by prescriber* Condition: Dose/Route: Instructions: Condition: Fingerstick Blood Glucose Dose/Route: Insulin Units Condition: mg/dl Condition: mg/dl Condition: mg/dl Condition: mg/dl Condition: mg/dl Condition: mg/dl Condition: mg/dl Condition: mg/dl Condition: mg/dl Condition: mg/dl Condition: Greater than or = 400 mg/dl Instructions: Call Provider Condition: Custom Scale 1:___ Instructions: GIVE 1 UNIT OF ASPART FOR EVERY ___MG GLUCOSE Instructions: STARTING AT 150MG AT BG CHECKSApr2018 11:00pmSept2024 10:58amPatient uses up to 200 Units of Insulin delivered via Omnipod. Please contact the information source for Protocol details.Tizanidine 4 mg IwgnobTevypyiroqwq9STIAYapsf times daily as needed for Fmclxhkj78537Qughi 2018 11:00pmAugust 2018 2:41pmDivalproex 500 mg Tablet,Delayed Release (Dr/Ec)Vsjqzcvxjetr804VKKKVespe mcpxb26209Cxmof 2018 11:00pmMarch 2022 2:10amIntractable seizure disorder Epilepsy, unspecified, intractable, without status epilepticusPregabalin (Lyrica) 300 mg IkznkcdKtzdkhnvxybz077ALUQGqqmfxq58Jjdng 2018 11:54am January 29, 2019 10:28amDiabetes mellitus Type 2 diabetes mellitus without complicationsLurasidone (Latuda) 20 mg tablet DiscontinuedAugus2018 11:00pmpt2018 10:28amTizanidine 4 mg jgviqwRfgjdxamrunf85LWZIFfwwn times daily as needed for HeadacheAugust 2018 2:40pmSept2018 10:28amQuetiapine 25 mg RwhclvNgkeaxljjheg37PFNC Daily at lqoyspt80Ksitmvfbs 6th, 2019 11:00pmMarch 2019 7:20pmVancomycin 1.5 gram recon yylcXnglamnzjeda0EPADN5J70817Uirfzjwpk 6th, 2019 11:00pmOctober 2018 7:31amMetoprolol Succinate 50 mg Tablet Extended Release 24 Hr Ktxpfqwlmmln57WLNBUybnn67Yatqjfbyy 6th, 2019 11:00pm[facility] 2022 2:13am Insulin Detemir U-100 (Levemir Flextouch U100 Insulin) 100 unit/mL (3 mL) Insulin DvzIjvvkbnbrjyt23ZWWEBWSTNSPOxowd26Lrucqapmy 6th, 2019 11:00pmMem[facility] 2019 2:09pmMicafungin 100 mg recon bwkvCqxhuzwzjjzw841UCWDV61O95175 January 28, 2019 11:00pmOctcaverna memorial hospital 2018 7:33amadminister over 60 mins Meloxicam 15 mg RsyvwdJsiyeukubhjp29NQVMOazgp as needed for dpys12Yphokybrq 7th, 2019 10:26amOctcaverna memorial hospital 2018 7:32amPregabalin (Lyrica) 300 mg Capsule Zswrfatzbsse557UKKGUpvdzuq20Cehveffpn 7th, 2019 10:26amMarc 2019 5:25pm Diabetes mellitus Type 2 diabetes mellitus without complicationsLevetiracetam 500 mg tablet Sfkjyxviqmzp079SMGDSvqrn dailyMemorial Health System 2019 11:00pmSeptember 2024 11:00amPregabalin 150 mg gktpdluUrcbgfkjbdkq454CLVXPgtenfoUuwzd 11th, 2020 11:00pmSept2024 11:04amQuetiapine 400 mg drnorvGydsow788GTFKPpfodzu August 03, 2019 11:00pmComplies with drug therapypotassium chloride 20 mEq dkqsudFjycibkhsbyn66RQKUQNtuciAwoha 2019 11:00pmMem[facility] 2019 2:09pm Potassium Chloride 20 mEq Tablet Extended JexzxesOddnppflabby60AMLDNNprsiFmypb 2019 11:00pmMarch 2022 2:13amCephalexin 500 mg capsuleDiscontinued 500MGPOTwice pzmxx0987Jdblf 2019 11:00pmApril 2019 7:10amLisinopril 40 mg ksluhwJtojdadvsziq87ZGJSKnhkgBkawp 2022 11:00pmMar 2022 12:34pmTizanidine 4 mg vtoykeTquncyirkyee3GUEQAmhil times daily as needed for Muscle SpasmMar 2022 11:00pmApril 2022 6:07amPromethazine 25 mg edoduhWipyzz58ADMIP3J as needed for NauseaMarch 2022 11:00pmComplies with drug therapyDoxycycline Hyclate 100 mg kmftstDkjsqutcmhup990UVDAPrqqr dailyMar 2022 11:00pmMar 2022 12:34pmAmoxicillin-Pot Clavulanate 500-125 mg tlbotrGbldhdeofsja1XXCXWI3N45542Dfhvo 2022 11:00pmApril 2022 6:00am Atorvastatin 40 mg BfxezdJhvdtk26URHOSgbnr vmxvxck959Swhkw 2022 11:00pm Complies with drug therapyAspirin 81 mg Tablet,Delayed Release (Dr/Ec)Chopjr60EL UOKiwhp088Buzob 2022 11:00pmComplies with drug therapyErgocalciferol (Vitamin D2) 1,250 mcg (50,000 unit) VydehjuUuitxlkgrgbg8437ZESIAC1P38Yjwqy 2022 11:00pmApril 2022 6:09amSaccharomyces Boulardii 250 mg Capsule Cuxmnu190FIGEUmcua daily with gtota424Xspag 2022 11:00pmComplies with drug therapyLisinopril 40 mg xmfqyjBwjzqxocqrkk69MYANXd Lbjcmbnc944Tgutq 2022 12:31pmApril 2022 6:09amTake half a tablet daily for 2 days then 1 tablet dailyChlorthalidone 25 mg qgehlsZgnmtk46GEAAPeylkYgyec 2022 11:00pm Complies with drug therapyErgocalciferol (Vitamin D2) 1,250 mcg (50,000 unit) pgyncifUkfrfidkbrir0372NYBNInbubd weekApr2022 11:00pmSeptember 2024 10:57amAlbuterol Sulfate (Ventolin Hfa) 90 mcg/actuation HFA aerosol zjukspsAkcoby1MIXNALEIHWNNTYO0LFsfja 2022 11:00pmComplies with drug therapyMetoprolol Tartrate 25 mg zerkyqNmazqiyktxsf89ZPROXaiyg dailyApril 2022 11:00pmSeptember 2024 11:29amTizanidine 6 mg jhzqsdaQhvrxpjbtdfh20AS POBedtimeApril 2022 11:00pmSeptember 2024 11:07amLisinopril 40 mg rotswdVqyioh68MBDNJmxeeEqohh 2022 6:09amTake half a tablet daily for 2 days then 1 tablet dailyComplies with drug therapyMetoprolol Tartrate 25 mg uwiaumGrccag20PNCPMndpwJmiunahlb 29th, 2025 11:02amComplies with drug therapy Pregabalin 75 mg qmjydykNynvne61QNQLLucyqYxyzuibpa 28th, 2025 11:00pmComplies with drug therapyInsulin Glargine (Lantus U-100 Insulin) 100 unit/mL solution ActiveUNITSUBCUTSept2024 11:00pmComplies with drug therapyCitalopram 40 mg olzaeaGdsqxr59DXNAIbieg at bedtimeSept2024 11:00pmComplies with drug therapySennosides-Docusate Sodium (Senna Plus) 8.6-50 mg tabletActive1 TAB-CAPPODaily at bedtimeSept2024 11:00pmComplies with drug therapy Clopidogrel 75 mg ldqstnBobkbo01EDTXYvfdxOuwbfgfqn 28th, 2025 11:00pmComplies with drug therapyNortriptyline 25 mg kwmiuwxQvvchv31GZGOXekct at bedtime Mitra 2024 11:00pmComplies with drug therapyOxycodone-Acetaminophen (Percocet) 5-325 mg feagcgGeyhqo7FGPOLYdfrt 8 hours as oeoahm6NlmnspggxFebruary 19, 2025 11:00pmComplies with drug therapyPantoprazole 40 mg tablet,delayed release (DR/EC)Irmkbe47HNOREwzuCxhzcrwhb 28th, 2025 11:00pmComplies with drug therapy Calcium Carbonate (Antacid (Calcium Carbonate)) 200 mg calcium (500 mg) tablet,kenmpfyqOspvrc539BMPCLnod times dailySept2024 11:00pmComplies with drug therapyDocusate Sodium 100 mg ibortzbLgccgd416MAGMQisqkEyorvljzm 28th, 2025 11:00pmComplies with drug therapyAlbuterol Sulfate (Ventolin Hfa) 90 mcg/actuation HFA aerosol znwzrndIldnro3VOJDNIURKNHZPMZLNJC 4-6 HOURS as needed February 19, 2025 11:00pmComplies with drug therapyInsulin Aspart U-100 100 unit/mL (3 mL) insulin penActiveSUBCUTSeptember 2024 11:00pmComplies with drug therapyTizanidine 4 mg omtfejnGgzzii3CUTPEmfin at bedtime as needed February 19, 2025 11:00pmComplies with drug therapyLevetiracetam 1,000 mg hxugjfWwtyoa8532JLKQVhldrvvye 28th, 2025 11:00pmComplies with drug therapy Paliperidone 9 mg tablet extended release 98xlFughgy9QXDXJkhftgjxs 28th, 2025 11:00pmComplies with drug therapyLoratadine (Allergy Relief (Loratadine)) 10 mg ezalwmhBnelya21JGDPVgsdcXibmuiqfr 28th, 2025 11:00pmComplies with drug therapy Immunizations Immunization Event Date Not Given Reason Dose Number Ornament Stapler Lot Number Reason(s) Given Vaccine Information Statement (VIS) Detail Administration Location [address] ([facility]) January Medical Equipment Device Date Implanted Device Details Posterior-chamber intraocula r lens, pseudophakic September 12, 2021 STEVO: [id number] Issuing Agency: [facility] Device Id: [id number] Expiration Date: 2023-12-16 Serial Number: [id number] port/catheterApril 2019UDI: [id number] Issuing Agency: [facility] Device Id: [id number] Expiration Date: 2020-09-21 Lot Number: [id number] Vital Signs Vital Reading Result Reference Range Collection Date/Time Height 62 [in_i] February 20, 2025 8:53xnZqmskt953.87 kgSept2024 8:58amBody Wmesbrttjsg01.4 [degF]97.6-99.0February 20, 2025 8:58amHeart Rate90 /min 60-100February 20, 2025 8:58amRespiratory rate18 /ecl98-98QdlozkrkcFebruary 20, 2025 8:58amOxygen saturation by Pulse rdaathtf82 %95-100February 20, 2025 8:58amBP Jmathryc511 mm[Hg]100-140February 20, 2025 8:58amBP Zdzptejtl92 mm[Hg]60-100February 20, 2025 8:58amBMI (Body Mass Index)50.3 kg/i2PwdifsuoxFebruary 20, 2025 8:31lxCwhgla99 [in_i]April 04, 2025 10:58tkJkkltq782.37 kg April 04, 2025 10:57amBody Tdwltmprtiv30.8 [degF]97.6-99.0April 04, 2025 10:57amHeart Rate81 /adb19-776AtbmohthApril 04, 2025 10:57amRespiratory rate18 /wua99-58EugnvztkApril 04, 2025 10:57amOxygen saturation by Pulse gfyaedce95 % -100April 04, 2025 10:57amBP Erclrrpb381 mm[Hg]100-140April 04, 2025 10:57amBP Lsknvwpsk77 mm[Hg]60-100April 04, 2025 10:57amBMI (Body Mass Index)49.7 kg/e2InqbzjwkApril 04, 2025 10:57am Advance Directives Advance Directive Response Recorded Date/ Time Advance Directives No February 23, 2017 1:30pm Insurance Providers Guarantor Lisa Montes Organ Address [address] [place] [id number] Info.Home Phone: Coverage Status Update:2024 Payer Group Member ID Coverage Type Subscriber Relationship to Subscriber Effective Date Expiration Date Medicaid [id number] J Organ Id: [id number] [address] [place] [id number] Home Phone: Email: [id number] Medicaid [id number] J Organ Id: [id number] [address] [place] [phone] Home Phone: Email: [id number] Medicaid [id number] J Organ Id: [id number] [address] [place] [id number] Home Phone: Email: [id number] Encounters Encounter Location(s) Arrival/Admit Date Discharge/Departure Date Discharge/Departure Disposition Provider(s) Departed Physician/ Provider Office Visit -[facility] February 20, 2025 9:44am February 20, 2025 10:21am Discharged to home care or self care (routine discharge) Andrés Lopez DO Non-patient / Non-visit -[facility] March 16, 2025 1:12pm Vivien ManringDeparted Physician/Provider [facility] 11:17amDischarged to home care or self care (routine discharge)Andrés Lopez DO Recent Diagnosis Onset Date Admit Date BMI 50.0-59.9, adult Unknown January 242024 9:44am Breast cancer screening by mammogram Unknown February 20, 2025 9:44am Essential hypertension Unknown February 20, 2025 9:44am Mixed hyperlipidemia Unknown January 242024 9:44am Morbid obesity due to excess calories Unknown February 20, 2025 9:44am Neurogenic bladder as late e ffect of cerebrovascular accident (CVA) Unknown February 20, 2025 9: 44am Nicotine use disorder Unknown February 20, 2025 9:44am Noncompliance with medications Unknown 2024 9:44am Peripheral vascular disease Unknown Jan 9:44am Right knee pain Unknown February 20, 2025 9:44am Type 2 diabetes mellitus wit h circulatory disorder, with long-term current Unknown February 20, 2025 9:44am Bipolar 1 disorder Unknown January 9:44am BMI 50.0-59.9, adult Unknown April 042024 10:44am Essential hypertension Unknown April 04, 2025 10:44am Mixed hyperlipidemia Unknown April 042024 10:44am Morbid obesity due to excess calories Unknown April 04, 2025 10:44am Neurogenic bladder as late e ffect of cerebrovascular accident (CVA) Unknown April 04, 2025 10: 44am Nicotine use disorder Unknown March 252024 10:44am Noncompliance with medications Unknown N ovember 2024 10:44am Right knee pain Unknown April 04, 10:44am Type 2 diabetes mellitus wit h circulatory disorder, with long-term current Unknown April 04, 2025 1 0:44am Assessments Diagnosis Onset Date Resolution Status Admit Date BMI 50.0-59.9, adult acuteSeptember 2024 9:44amBreast cancer screening by mammogramacute February 20, 2025 9:44amEssential hypertensionacuteSeptember 2024 9:44amMixed hyperlipidemiaacuteSeptember 2024 9:44amMorbid obesity due to excess caloriesacuteSeptember 2024 9:44amNeurogenic bladder as late effect of cerebrovascular accident (CVA)acuteSeptember 2024 9:44amNicotine use disorderacuteSeptember 2024 9:44amNoncompliance with medicationsacute February 20, 2025 9:44amPeripheral vascular diseaseacuteSeptember 2024 9:44amRight knee painacuteSeptember 2024 9:44amType 2 diabetes mellitus with circulatory disorder, with long-term currentacuteSeptember 2024 9:44amBipolar 1 disorderchronicSeptember 2024 9:44amBMI 50.0-59.9, adult acuteNovember 2024 10:44amEssential hypertensionacuteNovember 2024 10:44amMixed hyperlipidemiaacuteNovember 2024 10:44amMorbid obesity due to excess caloriesacuteNovember 2024 10:44amNeurogenic bladder as late effect of cerebrovascular accident (CVA)acuteApril 04, 2025 10:44amNicotine use disorderacuteApril 04, 2025 10:44amNoncompliance with medicationsacute April 04, 2025 10:44amRight knee painacuteApril 04, 2025 10:44amType 2 diabetes mellitus with circulatory disorder, with long-term currentacute April 04, 2025 10:44am Plan of Treatment Author Andrés Lopez [facility] CenterAuthoredSeptember 2024 9:28amPatient currently uses nicotine in the form of cigarettes. Discussed health risks of continued tobacco use (cardiovascular disease, cancer, and lung disease (and benefits of quitting at any age). Patient not motivated to quit at this time Behavioral strategies: ??? Setting a quit date that is important to the patient ??? Identifying triggers ??? Planning coping strategies via exercise, chewing sugar-free gum, mindfulness, and support groups ??? Recommended avoidance of high risk situations (concurrent alcohol use and social cues) Patient's T2DM is NOT well controlled. Patient is on insulin therapy and is currently managed by endocrinology. Continue management with lifestyle modifications: ??? Reduce processed sugar and ultraprocessed foods ??? Elimination of seed oils ??? Weight control ??? Regular physical activity Continue A1C checks q3 months Continue current medication regimen Goal BP < 130 systolic (preferably <120/80). Patient's BP is decently well controlled. Continue management of essential hypertension with lifestyle modifications: ??? Reduce processed sugar and ultraprocessed foods ??? DASH diet ??? Weight control ??? Regular physical activity Emphasized the importance of adhering to prescribed antihypertensive regimen. Continue to monitor home blood pressure readings Most recent lipid panel shows hyperlipidemia is decently Continue management with lifestyle modifications: ??? Reduce processed sugar and ultraprocessed foods ??? Elimination of seed oils ??? Weight control ??? Regular physical activity Discussed associated risk factors of hyperlipidemia including stroke and heart attack. Emphasized the importance of adhering to prescribed lipid lowering regimen. Patient has a longstanding history of medication noncompliance. Unsure of the exact medications that she is currently taking, so we will try to get med rec from previous SNF stay. We would then go over all the medications with her at her next visit. Discussed the increased risk of mortality due to obesity, and the importance of weight management for overall health as well as cardiovascular risk reduction. Recommend lifestyle modification: ??? Elimination of seed oils ??? Reduction of processed sugars and ultra processed foods ??? Portion control ??? Regular exercise at least 30 minutes/day up to 5 times per week Encouraged gradual, sustainable weight loss (1 to 2 pounds per week). Reviewed potential impact on comorbid conditions such as hypertension, diabetes, and hyperlipidemia. Will continue to monitor weight/BMI at follow-up, and consider adjunctive therapy if lifestyle measures are insufficient Patient has neurogenic bladder secondary to recent CVA. Has not seen urology, so would like to get her plugged in with one. Patient has right knee pain s/p mechanical fall Recommendations: ??? Rest and avoid movements that worsen pain ??? Ice 10 to 20 minutes/day ??? Light compression with a knee sleeve or wrap and elevating the leg to reduce swelling ??? Liho-osr-mldxqij pain medicine as needed (Tylenol) Patient requesting referral to orthopedic surgery. I do not see the medical necessity at this point for orthopedic surgery referral, but will do this for the patient. Discussed the importance of regular breast cancer screening and the risks vs benefits of annual vs biennial screening. Patient has never underwent mammography in the past. Will order this. Reviewed that early or more frequent screening may be indicated with family history, genetic risk, or prior chest radiation. Encouraged breast self-awareness and prompt reporting of new lumps, skin changes, or nipple discharge Author Andrés Lopez [facility] CenterAuthoredNovember 2024 10:48amPatient's T2DM is NOT well controlled. Patient is on insulin therapy and is currently managed by endocrinology. Continue management with lifestyle modifications: ??? Reduce processed sugar and ultraprocessed foods ??? Elimination of seed oils ??? Weight control ??? Regular physical activity Continue A1C checks q3 months Continue current medication regimen Patient has right knee pain s/p mechanical fall Recommendations: ??? Rest and avoid movements that worsen pain ??? Ice 10 to 20 minutes/day ??? Light compression with a knee sleeve or wrap and elevating the leg to reduce swelling ??? Qard-xwz-deqyxdv pain medicine as needed (Tylenol) Patient requesting referral to orthopedic surgery. I do not see the medical necessity at this point for orthopedic surgery referral, but will do this for the patient. Patient currently uses nicotine in the form of cigarettes. Discussed health risks of continued tobacco use (cardiovascular disease, cancer, and lung disease (and benefits of quitting at any age). Patient not motivated to quit at this time Behavioral strategies: ??? Setting a quit date that is important to the patient ??? Identifying triggers ??? Planning coping strategies via exercise, chewing sugar-free gum, mindfulness, and support groups ??? Recommended avoidance of high risk situations (concurrent alcohol use and social cues) Patient has neurogenic bladder secondary to recent CVA. Has not seen urology, so would like to get her plugged in with one. Goal BP < 130 systolic (preferably <120/80). Patient's BP is decently well controlled. Continue management of essential hypertension with lifestyle modifications: ??? Reduce processed sugar and ultraprocessed foods ??? DASH diet ??? Weight control ??? Regular physical activity Emphasized the importance of adhering to prescribed antihypertensive regimen. Continue to monitor home blood pressure readings Discussed the increased risk of mortality due to obesity, and the importance of weight management for overall health as well as cardiovascular risk reduction. Recommend lifestyle modification: ??? Elimination of seed oils ??? Reduction of processed sugars and ultra processed foods ??? Portion control ??? Regular exercise at least 30 minutes/day up to 5 times per week Encouraged gradual, sustainable weight loss (1 to 2 pounds per week). Reviewed potential impact on comorbid conditions such as hypertension, diabetes, and hyperlipidemia. Will continue to monitor weight/BMI at follow-up, and consider adjunctive therapy if lifestyle measures are insufficient Most recent lipid panel shows hyperlipidemia is decently Continue management with lifestyle modifications: ??? Reduce processed sugar and ultraprocessed foods ??? Elimination of seed oils ??? Weight control ??? Regular physical activity Discussed associated risk factors of hyperlipidemia including stroke and heart attack. Emphasized the importance of adhering to prescribed lipid lowering regimen. Patient has a longstanding history of medication noncompliance. Unsure of the exact medications that she is currently taking, so we will try to get med rec from previous SNF stay. We would then go over all the medications with her at her next visit. Future Tests Future scheduled test information is unavailable Pending Tests Test Name Ordered Date Scheduled Date MM screening mammo BI w/CAD February 20, 2025 9:25am 1 Days Future Visits Future appointment information is unavailable Future Procedures Future procedure information is unavailable Future Medications Future medication information is unavailable Patient Instructions Patient instructions are unavailable
[2025-04-12 14:16] VITALS: BP 160/90; PULSE 104; TEMP 36.5; O2SAT 98; BMI 49.4
--- NOTE | 2025-04-12 14:39 | XR_ITS ---
[facility] [place] [address] Patient Name: ADDIE SANDERS MRN: [id number] date: 1975 Sex: F Assigned Patient Location: ER Current Patient Location: ED.MAIN Accession/Order Number: [id number] Exam Date: 04/12/2025 15:12 Report Date: 04/12/2025 16:11 At the request of: ANDREY RUBALCAVA Procedure: XR knee RT 3V 2 views right knee HISTORY: Constant right knee pain. Injury in December. There is linear bony density near the medial distal portion of the femur which may correspond with MCL avulsion injury. No joint effusion. Adequate bony alignment. XR/XR knee RT 3V IMPRESSION: Avulsion fracture fragment medial aspect of the distal femur. Age-indeterminate. Correlate with site of pain. Impression dictated by: Ben Frost M.D. 04/12/2025 4:11 PM Dictation Location: [place] [address] Electronically authenticated by: [id number] Y Date: 04/12/2025 16:11
[2025-04-12] MEDS: HYDROMORPHONE HCL 1 MG/ML CARTRIDGE IM (14:40)
--- OUTSIDE RECORDS SUMMARY | 2025-04-12 15:21 | XMS_ITS | Patient Health Record ---
Author Organization [facility] Address [address] [place] [address] Care Team Providers Care Tombstone Erector Name Role Phone Maye Jordan Primary Care Provider [phone] Allergies Allergen (clinical drug ingredient) Drug/Non Drug Allergy documented on EMR Reaction Allergy Type Onset Date Status ketorolac TORADOL (uncoded) MESSES WITH HEART Allergy ActiveDarvocet-N 50vomitingDrug AllergyActivefentanylfentaNYLvomitingDrug AllergyActiveibuprofenIbuprofenKIDNEYSDrug AllergyActivetramadoltraMADol HCl HEART PROBDrug AllergyActivelinezolidZyvoxvomitingDrug AllergyActiveAdhesiverash AllergyActivecodeineCodeinehivesDrug AllergyActiveLatexLatexrashAllergyActive vancomycinVancomycinhivesDrug AllergyActive Reason For Referral No Information Medications Medication SIG (Take, Route, Frequency, Duration) Notes Start Date End Date Status Augmentin 500-125 MG Tablet 1 tablet Orally ever y 8 hrs ActivemetFORMIN HCl 1000 MG Tablet1 tablet with a meal Orally twice a day (bid) ActivePregabalin 100 MG Capsule1 capsule Orally twice a day (bid); Duration: 30 days10/13/2022ctiveMetoprolol Tartrate 50 MG Tablet1 tablet with food Orally Twice a day; Duration: 30 day(s)ActiveNystatin 591698 UNIT/GM Ointment1 application Externally Twice a day; Duration: 10 daysActiveLyrica 75 MG Capsule1 capsule Orally Twice a day; Duration: 30 daysActiveLidocaine 5 % Cream1 application as needed Externally Three times a day; Duration: 5 days09/26/2022 ActiveBlood Pressure Monitor - Miscellaneousas directed as directed; Duration: 30 daysActiveChlorthalidone 25 MG Tablet1 tablet in the morning with food Orally Once a day; Duration: 30 day(s)ActivediphenhydrAMINE HCl 25 MG Capsule1 capsule Orally every 8 hrs; Duration: 10 days12/01/2022ctiveVentolin HFA 108 (90 Base) MCG/ACT Aerosol Solution1 puff as needed Inhalation every 4 hrs; Duration: 30 days08/04/2022ctiveLidocaine 5 % Cream1 application as needed Externally twice a day must follow up with wound care; Duration: 5 days12/23/2022ctiveSynthroid 75 MCG Tablet1 tablet in the morning on an empty stomach Orally Once a day; Duration: 30 day(s)08/01/2022ctiveSilvadene 1 % Cream1 application to ulcer Externally twice a day must follow up with wound care for next qfbtau9812/23/2022 ActiveKeppra 750 MG Tablet1 tablet Orally every 12 hrs; Duration: 30 daysActive traZODone HCl 50 MG Tablet1 tablet at bedtime as needed Orally as directed; Duration: 30 daysActiveLisinopril 40 MG Tablet1 tablet Orally Once a day; Duration: 30 day(s)08/01/2022ctiveSEROquel 400 MG Tablet2 tablet at bedtime Orally Once a day; Duration: 30 daysActiveSaccharomyces boulardii 250 MG Capsule as directed OrallyActiveInsulin Lispro 100 UNIT/ML SolutionINJECT UP TO 150 UNITS ONCE DAILY WITH INSULIN PUMP Injection as directed; Duration: 27 days ActiveLisinopril 40 MG TabletTake 1 tablet by mouth once daily; Duration: 30 Active Social History Tobacco Use: Social History Observation Description Date Details (start date - stop date) Current Smoker NA - NA Social History GeneralSocial InfoQuestionAnswerNotesTransition of Care:ER/UC/hospital since last office visit?Yes, report requestedmerritan hospSpecialist seen since last office visit?NoDepression Screening (PHQ-9):Little interest or pleasure in doing thingsSeveral daysFeeling down, depressed, or hopelessSeveral daysTrouble falling or staying asleep, or sleeping too muchSeveral daysFeeling tired or having little energySeveral daysPoor appetite or overeatingSeveral daysFeeling bad about yourself-or that you are a failure or have let yourself or your family downSeveral daysTrouble concentrating on things, such as reading the newspaper or watching televisionSeveral daysMoving or speaking so slowly that other people could have noticed. Or the opposite being so fidgetyor restless that you have been moving around a lot more than usualSeveral daysThoughts that you would be better off , or of hurting yourself in some wayNot at allTotal Score8 IntepretationMild DepressionSubstance abuse/mental health issues of patient/familyPatient -Caffeine UseAbility to understand healthcare/treatment Patient:FairTobacco Screen:Are you a:current smoker? How often do you smoke cigarettes?every daySocial/Support Concerns:Patient:NoAlcohol Screening:Did you have a drink containing alcohol in the past year?UtOcbbei3MrfkelwaovyadyZrcnxvgz Behaviors affecting healthPoor/Risky Behaviors:Denies-Communication Barrier: Language Barrier?:NoSection Notes: Vapes Vapes Vapes Vapes Vapes Vapes Vapes Vapes Vapes Vapes Vapes Vapes Problems Problem Type SNOMED Code ICD Code Onset Dates Problem Status W/U Status Risk Notes Problem Diabetic foot ulcer (451173369) Diabetes mellitus due to underlying condition with foot ulcer (E08.621) ActiveconfirmedProblemType II diabetes mellitus with arthropathy (317105363)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)Activeconfirmed ProblemChronic ulcer of foot (720679218)Non-pressure chronic ulcer of left heel and midfoot with fat layer exposed (L97.422)ActiveconfirmedProblemSciatica (69276199)Lumbago with sciatica, right side (M54.41)ActiveconfirmedProblem Sciatica (15576267)Lumbago with sciatica, left side (M54.42)Activeconfirmed ProblemLong-term current use of insulin (235398002)terminal gauger (current) use of insulin (Z79.4)ActiveconfirmedProblemBipolar 1 disorder (199862639)Bipolar 1 disorder (F31.9)ActiveconfirmedProblemChronic pain (82872796)Other chronic pain (G89.29)ActiveconfirmedProblemPrimary hypertension (10884789)Primary hypertension (I10)ActiveconfirmedProblemDiabetic renal disease (820198703) Diabetic nephropathy associated with type 2 diabetes mellitus (E11.21)Active confirmedProblemHypothyroidism (18290539)Hypothyroidism, unspecified type (E03.9)ActiveconfirmedProblemMigraine with aura (1104047)Migraine with aura and without status migrainosus, not intractable (G43.109)ActiveconfirmedProblemMRSA (Methicillin resistant Staphylococcus aureus) infection (176920992)MRSA (methicillin resistant Staphylococcus aureus) infection (A49.02)Activeconfirmed ProblemIncontinence without sensory awareness (304884478)Urinary incontinence without sensory awareness (N39.42)ActiveconfirmedProblemLoss of vision of left eye (927515784)Vision loss, left eye (H54.62)Activeconfirmed Plan Of Treatment No Information Insurance Providers Payer Name Payer Address Payer Phone Subscriber Number Group Number Insured Name Patient Relationship to Insured Coverage Start Date Coverage End Date [employer] [place] Medicaid [address] [place] [address] [id number] ORGAN, CATHYSelf - patient is the [id number] 2022Wrap ABD CareSourcePO [address] [place] [id number], CATHYSelf - patient is the [id number] [employer]Source [place] MedicaidPO [address] [place] [id number], CATHYSelf - patient is the [id number] 2022 Wrap ABD CareSourcePO [address] [place] [address] [id number], CATHYSelf - patient is the insured 2022 Medical (General) History Medical History History ICD Code GRAN MAL SEIZURES DIABETES 2NEUROPATHYHTNHEADACHESSurgical History Surgery Date(Month/Year) TOTAL HYSTERECTOMY 2006 GALL BLADDER LAPRASCOeye [id number] History Reason Date(Month/Year) toe infection 08/2022
--- OUTSIDE RECORDS SUMMARY | 2025-04-12 15:24 | XMS_ITS | Continuity of Care Document ---
Author Organization [facility] Address [address] [place] [address] Phone [phone] Care Team Providers Care Pharmacy Informatics Manager Name Role Phone Tona Nielsen PA-C Care Team Information Re ceiver [phone] Family History Date Family Member(s) Observation Comments [...] N ote .Renal Panel 04/29/2024 [facility] [phone].Albumin3.2.Calcium8.5.Carbon Bjbwbpl33.Ivxpqbyl359.Phosphorus4.0 .Potassium4.5.Zkohzn873.BUN30.GFR37.Creatinine-LC1.73.CBC W/O Differential 4[facility] [phone].Gqfhqlecpe79.3.Hemoglobin Blood9.6.Platelet Count Celhp696.Red Blood Count3.39IBO61.4.White Blood Count6.78MCH (Corpuscular Hemoglobin)31.0MCHC (Corpuscular Hemog Conc)32.8MPV9.7MCV (Corpuscular Volume)94.5.Renal Panel 04/04/2024[facility] [phone].Albumin3.2.Calcium8.4.Carbon Ajqpymj07.Msptkikg229.Phosphorus3.8 .Potassium4.0.Bbgjcb329.BUN20.GFR Jaavnbjct86.Creatinine-LC1.34.CBC W/O Bgqaeszqrbud25/11/2024[facility] [phone].Nifmezkbgm31.7.Hemoglobin Blood8.9.Platelet Count Xnfyi249.Red Blood Count2.04KWX90.1.White Blood Count7.11MCH (Corpuscular Hemoglobin)31.1MCHC (Corpuscular Hemog Conc)33.3MPV9.6MCV (Corpuscular Volume)93.4.Renal Panel 03/29/2024[facility] [phone].Albumin3.0.Calcium8.7.Carbon Osowckq39.Cfvmhqyy696.Phosphorus4.1 .Potassium4.8.Nqthmt048.BUN36.GFR Ehprefwrx33.Creatinine-LC2.19.CBC W/O Kkfndumpdqbw23/05/2024[facility] [phone].Biozsffrtq20.0.Hemoglobin Blood8.8.Platelet Count Ldjxw739.Red Blood Count2.96TDH54.1.White Blood Count7.18MCH (Corpuscular Hemoglobin)30.6MCHC (Corpuscular Hemog Conc)31.4MPV9.5MCV (Corpuscular Volume)97.2 Assessments Date Code Description Provider 04/01/2024 N17.9 [...] Misha Serrato M.D. 03/30/2024 I10 Essential (primary) brunoen minesh Misha Serrato M.D. 03/30/2024 E11.22 Type 2 diabetes mellitus with diabetic chronic kidney disease Misha Serrato M.D. 03/29/2024 N17.9 Acute kidney failure, unspec ified Misha Serrato M.D. 03/29/2024 N18.30 Chronic kidney disease, stag e 3 unspecified Misha Serrato M.D. 03/29/2024 I10 Essential (primary) hypertanai minesh Misha Serrato M.D. 03/29/2024 E11.22 Type 2 diabetes [...] N17.9 Acute kidney failure, unspec ified Misha eSrrato M.D. 03/27/2024 N18.30 Chronic kidney disease, stag e 3 unspecified Misha Serrato M.D. 03/27/2024 I10 Essential (primary) brunoanai minesh Serrato M.D. 03/27/2024 E11.22 Type 2 diabetes mellitus with diabetic chronic kidney disease Misha Serrato M.D. 01/17/2024 N17.9 Acute kidney failure, unspec ified Gino Smith MD 01/17/2024 N18.30 Chronic kidney disease, stag e 3 unspecified Gion Smith MD 01/17/2024 E11.22 Type 2 diabetes [...]
--- OUTSIDE RECORDS SUMMARY | 2025-04-12 15:24 | XMS_ITS | Patient Health Record ---
Author Organization [facility] Address [address] [place] [address] Care Team Providers Care Dial Printer Name Role Phone Enrique Hebert Primary Care Provider DR. Mario Kwok Unavailable [phone] Luis STEVENS, [place] Unavailable Unavailable Reason For Referral No Information Plan Of Treatment No Information Insurance Providers Payer Name Payer Address Payer Phone Subscriber Number Group Number Insured Name Patient Relationship to Insured Coverage Start Date Coverage End Date [employer] [place] [address] [place] [phone] [id number] ORGAN, CATHYSelf - patient is the insuredCaresource Medicaid [place]PO [address] [place] [id number], CATHYSelf - patient is the [id number] 2024
--- OUTSIDE RECORDS SUMMARY | 2025-04-12 15:24 | XMS_ITS | Clinical Summary ---
Author Organization [facility] Address [address] [facility] [place] [address] Care Team Providers Care [employer] Name Role Phone Unavailable Primary Care Provider Unavailabl e Source Comments The following information is NOT included in Care Everywhere downloads:Psychiatric notes, ECG results, Cardiac Rehab notes, Pulmonary Function notes, data from SmartForms (includes but not limited toPregnancy data,audiograms, eye exams, pre-surgical evaluation notes, well-child exam data).[facility] Immunizations ImmunizationAdministration DatesNext DueInfluenza, injectable, quadrivalent, preservative (WFX=118)02/22/2018Influenza, injectable, quadrivalent, preservative free (YDH=312)03/06/2021,06/05/2020Influenza, injectable, trivalent, preservative (ARH=663)04/09/2022,05/25/2020,03/26/2014Influenza, unspecified formulation (CVX=88)05/28/2015Pneumococcal polysaccharide 23 Valent (PPSV23) (CVX=33)03/06/2021Tdap (MTL=072)02/21/2022 Social History Tobacco UseTypesPacks/DayYears UsedDateSmoking Tobacco: Never Assessed CommentsNoSex and Gender InformationValueDate RecordedSex Assigned at BirthNot on fileLegal OclOmzvvr50/31/2019 4:24 PM EDTGender IdentityNot on fileSexual OrientationNot on file Last Filed Vital Signs Vital SignReadingTime TakenCommentsBlood Aquobrrc20/51010/07/2022 6:43 AM EDT Feeqc8102/16/2023 6:43 AM EXRGnoametajnz18.4 ??C (97.6 ??F)10/06/2022 7:48 PM EDTRespiratory Rqaw935610/06/2022 7:48 PM EDTOxygen Iyewofzmrb53%10/07/2022 6:43 AM EDTInhaled Oxygen Concentration--Weight--Height--Body Mass Index-- Plan of Treatment Health MaintenanceDue DateLast GuboJsztsnmhAeaopdgxacp1977HIV Test 1992Hepatitis C Kcitinuu16/25/1995Hepatitis A (HAV) Vaccine (optional start 19+ years)1996Hepatitis B (HBV) Vaccine (1 of 3 - 19+ 3-dose series) 1996Pap Smear04/18/19984010Mciirjiocvo52/25/2017CRC Wpmaynkok45/25/2022 Cologuard (Stool DNA)2022FIT2022OVID-19 Vaccine (2 - 2024- season)Influenza Vaccine (#1), 03/06/2021, 06/05/2020, Additional history ynazyzSwcldajikko32/13/2027 03/06/2022, 05/25/2015, 09/29/2013Shingles (RZV) Vaccine (1 of 2)2027 Tetanus (Td or Tdap) Spncldl70neumococcal Vaccine(s)Aged Out 03/06/2021No longer eligible based on patient's age to complete this topicTdap EzjkyiwVswqnbzpu62/30/2022 Insurance
--- OUTSIDE RECORDS SUMMARY | 2025-04-12 15:25 | XMS_ITS | Patient Health Record ---
Author Organization [facility] [place] Address [address] [place] [address] Care Team Providers Care Registered Nurse Maternity Name Role Phone Mario Baum DO Primary Care Provider Juanjo Snow Unavailable [phone] Reason For Referral No Information Problems Problem Type SNOMED Code ICD Code Onset Dates Problem Status W/U Status Risk Notes Problem Peripheral venous in sufficiency (33452183) Venous insufficiency (chronic) (peripheral) (I87.2) ActiveconfirmedProblemChronic ulcer of foot (213262904)Non-pressure chronic ulcer of other part of left foot with fat layer exposed (L97.522)Activeconfirmed ProblemDiabetic peripheral neuropathy (077055906)Diabetic peripheral neuropathy (E11.42)ActiveconfirmedProblemHypertension (29261335)Hypertension (I10)Active confirmedProblemAnxiety (81725548)Anxiety (F41.9)ActiveconfirmedProblemType 2 diabetes mellitus (00691600)Type 2 diabetes mellitus (E11.9)Activeconfirmed ProblemLong-term current use of insulin (545201297)Current use of insulin (Z79.4)Activeconfirmed Encounters Encounter Location Date Provider Diagnosis [facility] [address] [place] [address] [place] [address] 08/09/2024 Juanjo Amaro Plan Of Treatment No Information Insurance Providers Payer Name Payer Address Payer Phone Subscriber Number Group Number Insured Name Patient Relationship to Insured Coverage Start Date Coverage End Date [employer] [place] [employer] [address] [facility] [place] [address] [id number] ItaZenobiaelf - patient is the kpgrknd3306/25/2022
--- OUTSIDE RECORDS SUMMARY | 2025-04-12 15:25 | XMS_ITS | Clinical Summary ---
Author Organization [facility] Address [address] [place] [address] Care Team Providers Care Mattress Maker Name Role Phone Cherelle Fierro MD Unavailable [phone] Geo Leach MD Primary Care Provider [phone] George Rob DO Unavailable Unavailable Allergies Active AllergyReactionsCriticalityNoted DateComments*Adhesive Tape07/15/2017 Codeine And RelatedAggressive YetanrntJxncof93/24/2008Propoxyphene N-ApapNausea and GqmrxvcoRavvbv07/24/2008Dye Retirement Red 3 (Erythrosine)01/21/2017 IV DYE shuts down my kidneys FentanylRenal TmbtzukMvyb07/17/2024IbuprofenRenal EpmarpfLhig94/17/2024Iodides High02/16/2017 Other reaction(s): Other (See Comments) Renal compromise Latex05/01/2015 Other reaction(s): Dermatitis LinezolidRenal EoekacwUjkt27/17/2024LorazepamRenal CxuhgzfIulw21/17/2024Nsaids 03/30/2017 shuts my kidney's down Ketorolac Igqaruejsmhf66/30/2017 Unsure of reaction BytysajvRmyyykqwUdkj59/23/3932Vbtdffxaba43/30/2017 Shut down her kidneys Medications MedicationSigDispense QuantityRefillsLast FilledStart DateEnd DateStatus omeprazole (PRILOSEC) [address] Indications:A-fib,SyncopeTake 40 mg by mouth daily.Active TiZANidine HCl (ZANAFLEX PO) Indications:A-fib,Syncopetake 4 mg by mouth 2 times daily.Active lisinopril (ZESTRIL) 5 MG PO TABS Indications:HTN (hypertension),A-fibtake 1 Tab by mouth daily. 30 Tab 11007/02/2012ctive Additional Information Patient not taking.Reported on 11/09/2023 Blood Pressure Monitoring (ADULT BLOOD PRESSURE CUFF LG) XX KIT Indications:HTN (hypertension),A-fib1 Kit by Unknown route As directed. 1 Kit ctive aspirin 81 MG Chew Tab Indications:Atrial fibrillation, unspecified type,SSS (sick sinus syndrome)take 1 tablet by mouth daily.. 30 tablet 01/21/2017Active Additional Information Patient taking differently:81 mg OralDAILY EVERY MORNING, Reported on 03/13/2017 atorvastatin (LIPITOR) 20 MG Tab Indications:Atrial fibrillation, unspecified type,SSS (sick sinus syndrome)take 1 tablet by mouth daily.. 30 tablet 01/21/2017Active Additional Information Patient taking differently:20 mg OralDAILY EVERY MORNING, Reported on 03/13/2017 lithium 300 MG Cap Indications:Atrial fibrillation, unspecified type,SSS (sick sinus syndrome)300mg in AM and 600mg QHS 90 capsule 01/21/2017Active Additional Information Patient not taking.Reported on 11/09/2023 metformin 1000 MG Tab Indications:Atrial fibrillation, unspecified type,SSS (sick sinus syndrome)take 1 tablet by mouth 2 times daily.. 60 tablet 01/21/2017Active Additional Information Patient not taking.Reported on 11/09/2023 QUEtiapine 50 MG Tab Indications:Atrial fibrillation, unspecified type,SSS (sick sinus syndrome)take 1 tablet by mouth at bedtime.. 30 tablet 01/21/2017Active diphenhydrAMINE 50 MG Cap Indications:Atrial fibrillation, unspecified type,SSS (sick sinus syndrome)Take 1 hour prior to pacemaker implant 02/23/17- 7am 1 capsule 01/21/2017Active Additional Information Patient not taking.Reported on 11/09/2023 losartan 25 MG Tab tablet take 25 mg by mouth daily every morning.Active Levothyroxine Sodium (LEVOTHYROXINE PO) Take 75 tablets by mouth daily.Active levetiracetam 500 MG Tab tablet Take 1,000 mg by mouth 2 times daily.Active pregabalin 100 MG Cap Take 100 mg by mouth at bedtime.Active insulin lispro 100 UNIT/ML vial - dose 12 units per meal, can do 6 units if having a smaller meal - also dose before meals and at bedtime for BG >150: 151-200 = 2 units 201-250 = 4 units 251-300 = 6 units 301-350 = 8 units 351-400 = 10 units 1 vial Active insulin glargine 100 UNIT/ML Solution Pen-injector injection Inject 48 Units under the skin at bedtime. 15 mL Active Insulin Pen Needle (PEN NEEDLES 31GX5/16 ) 31G X 8 MM Misc For use with Insulin ONCE daily. 100 Each Active Insulin Syringe-Needle U-100 (INSULIN SYRINGE .3CC/31GX5/16 ) 31G X 5/16 0.3 ML Misc Use new syringe with each insulin injection. 120 Each Active GLUCOSE TEST STRIPS PRESCRIPTION Use BEFORE MEALS and at BEDTIMEto test Blood Glucose 125 strip Active GLUCOSE MONITOR LANCETS PRESCRIPTION Use BEFORE MEALS and at BEDTIME to test Blood Sugar. 150 Each Active GLUCOSE MONITOR PRESCRIPTION Dispense ONE. Patient requires Insulin. 1 Each Active Albuterol 108 (90 Base) MCG/ACT Aero Soln inhaler Inhale 1 puff every 6 hours as needed for Shortness of Breath.Active Chlorthalidone 25 MG tablet Take 1 tablet by mouth daily.Active Citalopram 20 MG tablet Take 1 tablet by mouth daily.Active cyanocobalamin 500 MCG tablet Take 1 tablet by mouth daily.Active Ergocalciferol 1.25 MG (37347 UT) capsule Take 1 capsule by mouth once a week.Active hydrOXYzine pamoate 25 MG capsule Take 1 capsule by mouth 3 times daily as needed for Anxiety.Active lamoTRIgine 25 MG tablet Take 1 tablet by mouth daily.Active Lisinopril 20 MG tablet Take 1.5 tablets by mouth daily.Active Metoprolol 50 MG tab regular release Take 1 tablet by mouth 2 times daily.Active Nortriptyline 25 MG capsule Take 1 capsule by mouth At bedtime.Active Ondansetron 4 MG tablet Take 1 tablet by mouth every 8 hours as needed for Nausea / Vomiting.Active pantoprazole Sodium 40 MG Pack Take 1 packet by mouth every morning before breakfast.Active Polyethylene glycol 17 g Pack packet Take 1 packet by mouth daily.Active traZODone 50 MG tablet Take 1 tablet by mouth At bedtime.Active Urea (CARMOL 40 EX) Apply topically.Active Brinzolamide-Brimonidine (Simbrinza) 1-0.2 % Suspension Apply 1 drop to eye. Pt given sample by Yuliya Puentes MD 11/08/2405 Active Active Problems ProblemNoted DateDiagnosed DateType 2 diabetes mellitus with diabetic polyneuropathy, with long-term current use of pwbvwxr7708/25/2017Type 2 diabetes mellitus with retinopathy, with long-term current use of gzsbedz3108/25/2017 Xngsswuhfstbs59/07/2017Mixed lyconkctnyturt91/07/2017 Assessment & Plan (03/31/2017 4:00 PM EST): Continue statin Benign ahnxrxbeqvgi81/07/2017 Assessment & Plan (03/31/2017 4:01 PM EST): Moderately controlled Continue lisinopril and losartan Qodyfakxxty65/07/2017 Assessment & Plan (03/31/2017 4:02 PM EST): Continue synthroid. Daimzhebwsxbq51/07/2017 Assessment & Plan (03/31/2017 4:07 PM EST): History of noncompliance with her medications per records and local pharmacy Her local pharmacy packages her pills to encourage compliance Spoke with her pharmacy and PCP office at length to clarify her current medication list. Atrial anpvpnfmvvza49/31/2017 Overview (01/22/2017): Added automatically from request for surgery [id number] Obesity: body mass index of 35.0-39.9001/21/2017 Overview (08/25/2022): 08/23/22 IMO Update Pymvgxjukcy84/07/2012SSS (sick sinus syndrome)01/30/20128794Orduyyk56/23/2012A-fib 12/11/20117094Tgxkcitsve40/22/2009Sleep hekdsets07/22/2009Endometrial polyp 02/23/20097530Smnukqqlsekdx03/12/2009 Overview (08/25/2022): 08/23/22 IMO Update Assessment & Plan (03/31/2017 4:03 PM EST): Reported Hx of MANAGER ONCOLOGY events with seizures, migraines, and TIA/CVA; recommended device to be upgraded to MRI compatible. S/P successful Extraction of PPM and implant of MRI PPM 03/30 without complications. Post procedure CXR: no pneumothorax Device interrogation normal Device teaching and F/U appointment provided by Device RN. Patient has a PMH of frequent wound infections: Endocrine consulted for tight BG control: wound healing. Bipolar fornxkwpis79/12/2009 Assessment & Plan (03/31/2017 3:59 PM EST): Continue home regime of lithium BID and seroquel Q Anxiety state, ggadtbxlpjf06/24/2008Headache(784.0)02/16/2008 Overview (02/03/2009): Multifactorial 2/2 migraines, Tension-THIBODEAUX. Scheduled for MRI on multiple occasions to eval for pseudotumor but pt has not followed through. Resolved Problems ProblemNoted DateDiagnosed DateResolved DateLeft ear pain Gqbybgz76Pain in joint, ankle and foot Other dyspnea and respiratory evndnikicun49Nausea alone Vomitingbdominal pain, other specified site Family History Medical HistoryRelationNameCommentsCoronary Artery DiseaseFatherDiabetesFather Coronary Artery DiseaseOtherDiabetesOtherHypertensionOtherRelationNameStatus CommentsFatherAliveMotherAliveOther Social History Tobacco UseTypesPacks/DayYears UsedDateSmoking Tobacco: FormerCigarettes0.315 11/22/1996 - 11/23/2011Smokeless Tobacco: Never Tobacco Cessation:Counseling Given: Not Answered Comments:recently restarted Alcohol UseStandard Drinks/WeekCommentsNo0 (1 standard drink = 0.6 oz pure alcohol)CommentsNoSex and Gender InformationValueDate RecordedSex Assigned at BirthNot on fileLegal MheYjzawg60/03/2013 6:28 AM ESTGender Identity FemaleSexual OrientationNot on file Last Filed Vital Signs Vital SignReadingTime TakenCommentsBlood Mrcbxrsg738/9906/ 3:47 PM EDT Zxwcn3518 3:47 PM XRGLradwxtwpon21.7 ??C (98 ??F)09/01/2023 2:00 PM EDT Respiratory Xyfw3088 2:00 PM EDTOxygen Sketepvyyd47%09/01/2023 2:00 PM EDTInhaled Oxygen Concentration--Awjzub80.4 kg (179 lb 7.3 oz)04/01/2017 3:41 AM SLFSqfvwo347.5 cm (5' 2 )03/30/2017 5:00 PM ESTBody Mass Index32.8203/30/2017 5:00 PM EST Plan of Treatment DateTypeDepartmentCare Team (Latest Contact Info)Gmrjsbmzihh76/27/2026 8:00 AM EDTOffice Visit Check And Transfer [facility] [address] [place] [address] Geo Leach MD [address] [place] [address] Health MaintenanceDue DateLast DoneCommentsDIABETIC FOOT EXAM1977EYE EXAM 1977HEPATITIS C VIRUS BEKJIAJUU72/25/2705KEI1977HIV SCREENING ZNVMFULDYF51/25/1992HEP B VACCINE (1 of 3 - 19+ 3-dose series)1996CERVICAL CANCER SCREENING ICDTUOYAGC81/25/1998URINE MICROALBUMIN TEST06/02/ GNJYQI71/06/MAMMOGRAM SCREENING DAEJXGWBWK29/25/2017POTASSIUM , 03/31/2017, 03/31/2017, Additional history exists COLORECTAL CANCER SCREENING CGRBRIFRKA37/25/2022COVID-19 VACCINE ( season)/INFLUENZA VACCINE (#1)509/, 05/06/2023, 04/09/2022, Additional history qcbbspGIQ3D TEST/03/2025, 03/22/2024, 01/12/2024, Additional history zqggikEFNGYIQ99/30/203209/TDAP (ADULT)Dewoeaqll40/30/2022NEUMOCOCCAL VACCINE NVTJEUPefmursdz15/13/2023, 03/29/2023, 03/06/2021 Medical Devices ImplantedTypeAreaManufacturerDevice IdentifierShelf Expiration DateModel / Serial / LotLead Pace Standard Mdt 5076 45cm - S [id number] Implanted:Qty: 1 on 03/30/2017 [facility] N/[facility]: HeartMEDTRONIC [id number] / [id number] / Pacer Dual Mri Advisa Chamber - [id number] Implanted:Qty: 1 on 03/30/2017 by Fatmata Jose MD at [facility] PacemakerLeft: ChestMEDTRONIC PACER09/05/2018A2DR01 / [id number] / ExplantedTypeAreaManufacturerDevice IdentifierShelf Expiration DateModel / Serial / LotLead St Justo 8tc/46 - [id number] Implanted:Qty: 1 on 01/29/2012 by Ashish Long MD, PhD at [facility] Explanted:Qty: 1 on 03/30/2017 [facility] JUSTO XYYUHQZ99/30/[id number]/46 / [id number] / Pacer Biotronik 197530 - [id number] Implanted:Qty: 1 on 01/29/2012 by Ashish Long MD, PhD at [facility] Explanted:Qty: 1 on 03/30/2017 by Geo Leach MD at [facility] PacemakerN/A: ChestHIST [id number]/01/[id number] / [id number] / Description:Device is set at DDD-CLSImplantable Servicing Rep Me - [id number] Explanted:Qty: 1 on 01/29/2012 by Ashish Long MD, PhD at [facility] MEDTRONIC [id number] / [id number] / Procedures Procedure NamePriorityDate/TimeAssociated DiagnosisCommentsCHEM 7 (LYTES,BUN,CREA,GLUC)Aogtuzs8604/01/2017 3:40 AM EST HEMOGLOBIN E4JGrdtjky64/20/2017 2:47 PM EDT Preop exam for internal medicine Atrial fibrillation, unspecified type SSS (sick sinus syndrome) Bradycardia Type 2 diabetes mellitus treated with insulin LIPID PANEL W CALCULATED CHSHffbewo00/06/2009 10:11 AM EST Diabetes POCT URINE MICROALBUMIN/URINE CREAT/AL:WLWbiaxaj54/09/2009 9:10 AM EST Diabetes from Last 3 Months or Most Recently Relevant to Health Maintenance Results * (ABNORMAL) CHEM 7 (LYTES,BUN,CREA,GLUC) (04/01/2017 3:40 AM EST)ComponentValue Ref RangeTest MethodAnalysis TimePerformed AtPathologist JbjaipvcxIPI48(H)7 - 22 mg/dLLAB, NLNKBOCVJ095202 - 143 mmol/LLAB, OSUPotassium3.93.5 - 5.0 mmol/L LAB, RZWEJKFHCJU74925 - 108 mmol/LLAB, OSUCARBON DIOXIDE (CO2)2622 - 30 mmol/L LAB, OWQKtlwsxc7042 - 99 mg/dLLAB, OSUCREATININE SERUM0.600.50 - 1.20 mg/dL LAB, OSUANION GAP97 - 17 mmol/LLAB, OSUBUN/CREA PSAUL43QNE, OSUOSMOLALITY (CALC)661899 - 305 mOsm/kgLAB, OSUESTIMATED GFR, NON AMER>60>60 mL/min/1.73sqMLAB, OSUESTIMATED GFR, >60>60 mL/min/1.73sqMLAB, OSUSpecimen (Source)Anatomical Location / LateralityCollection Method / Volume Collection TimeReceived Time04/01/2017 3:40 AM EST04/01/2017 4:01 AM EST Narrative Authorizing ProviderResult TypeResult StatusMikeagan Borrego EQUIPMENT MECHANIC SPECIALIST-CNPCHEMISTRY ORDERABLESFinal ResultPerforming OrganizationAddressCity/State/ZIP CodePhone Number LAB, [facility] [address] [place] [address] * (ABNORMAL) HEMOGLOBIN A1C (03/13/2017 2:47 PM EDT)ComponentValueRef RangeTest MethodAnalysis TimePerformed AtPathologist SignatureHEMOGLOBIN A1C10.2(H)4.7 - 5.6 %LAB, OSUEstimated Average Whkqtyv923vp/dLLAB, OSUSpecimen (Source) Anatomical Location / LateralityCollection Method / VolumeCollection Time Received Time03/13/2017 2:47 PM EDT1 3:42 PM EDT Narrative Authorizing ProviderResult TypeResult StatusDannielle Palma EQUIPMENT MECHANIC SPECIALIST-CNPHEMATOLOGY ORDERABLESFinal ResultPerforming OrganizationAddressCity/State/ZIP CodePhone Number LAB, [facility] [address] [place] [address] * (ABNORMAL) LIPID PANEL (06/30/2008 10:11 AM EST)ComponentValueRef RangeTest MethodAnalysis TimePerformed AtPathologist EfwxxscdtHWWBSYNZITT135<200 mg/dL LAB, OSUComment: [<200 mg/dL: Desirable] ?[200-239 mg/dL: ??Borderline High] [>239 mg/dL: High] TRIGLYCERIDES-NCHVF137(H)<150 mg/dLLAB, OSUComment: [<150 mg/dL: Desirable] [150-199 mg/dL: Borderline] [200-499 mg/dL: High] [>500 mg/dL: Very High] HDL BEGHUHWZXHC61(L)>60.0 mg/dLLAB, OSUComment: [<40 mg/dL: Low (High Risk)] [>59 mg/dL: High (Low Risk)] LDL CHOLESTEROL, EDERKPYUTV418 - 99 mg/dLLAB, OSUComment: [<100 mg/dL: Optimal] ?[100-129 mg/dL: ??Near Optimal] ?[130-159 mg/dL: ??Borderline High] ?[160-189 mg/dL: ??High] [>189 mg/dL: Very High] CHOLESTEROL, TOTAL/HDL4.8(H)<4.5LAB, OSUComment:[<4.5: Low risk]Specimen (Source)Anatomical Location / LateralityCollection Method / VolumeCollection TimeReceived Time06/30/2008 10:11 AM EST06/30/2008 10:32 AM EST Narrative Authorizing ProviderResult TypeResult StatusLinda W Strout DOCHEMISTRY ORDERABLESFinal ResultPerforming OrganizationAddressCity/State/ZIP CodePhone Number LAB, [facility] [address] [place] [address] * POCT URINE MICROALBUMIN (MICROAL/CR/AL:CR) (06/02/2008 9:10 AM EST)Component ValueRef RangeTest MethodAnalysis TimePerformed AtPathologist SignaturePOCT URINE BGJZDFLBMGFV86 mgCREATININE, URINE FOEE558 mg10 - 300 mg/dL ALBUMIN/CREATININE RATIO, URINE POCT30 mg<=30 mg albumin/g creatinine Narrative Authorizing ProviderResult TypeResult StatusLinda W Strout DOPOINT OF CARE TESTINGEdited from Last 3 Months or Most Recently Relevant to Health Maintenance [place] [address] [place] [id number] Advance Directives For more information, please contact: [phone] (7:30 AM - 6PM [facility], Thursday-Thursday) * Full Code (Latest Code Status on File) Date ActivatedDate BgnrtddjkbeOdpbenpy54/6/2017 9:46 AM04/01/2017 3:40 PM Care Teams Team MemberRelationshipSpecialtyStart DateEnd Date Geo sultana MD [address], [facility] [address] [place] [address] PCP - GeneralClinical Cardiac Electrophysiology09/23/16 Cherelle Fierro MD [address], [facility] [address] [place] [address] Family Medicine01/30/12 George Rob DO [address] [facility] [address], [facility] [address] [place] [address] Consulting PhysicianFamily Alkvnfdh89/27/17
--- OUTSIDE RECORDS SUMMARY | 2025-04-12 15:25 | XMS_ITS | Clinical Summary ---
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 Name Role Phone System, Provider Not In Primary Care Provider Un available Allergies Active AllergyReactionsCriticalityNoted BruxRbltvgodMxpfdsnyCloqysv84/23/2018 AquyreoOgxsuh10/24/2008 Other reaction(s): Aggressive Behavior ProchlorperazineOther (See Comments)06/04/2023 She reports Compazine made her feel anxious and grumpy Ct: Iodinated Contrast- Oral And Iv DyeOther (See Comments)09/06/2018 Shuts my kidneys down Gjowdplq29/18/2019IbuprofenOther (See Comments)06/03/2020 shuts kidney down IodidesOther (See Comments)High02/16/2017 Renal compromise KetorolacHives,Other (See Comments),Rash,GI XaohzmceddzRldh55/17/2011 Messes with seizures Unsure of reaction FrbluJxkrkhoqub10/08/2015LinezolidNausea And Vomiting,GI Nyybeypaexx50/28/2023 LorazepamOther (See Comments)12/08/2021Nsaids (Non-Steroidal Anti-Inflammatory Drug)03/30/2017 shuts my kidney's down PropoxypheneGI KfsqdexivduZdb10/01/2016Propoxyphene N-AcetaminophenGI OltifsbgdsgHqkdrd22/24/2008TramadolHives,Rash,Other (See Comments),GI XzqtaizggepJsho01/23/2012VancomycinOther (See Comments)06/03/2020 Shuts kidney down Medications MedicationSigDispense QuantityRefillsLast FilledStart DateEnd DateStatus Omnipod Insulin Refill Crtg 04/16/2020Active Dexcom G6 Sensor Simran Indications:Type 2 diabetes mellitus with diabetic polyneuropathy, with long- term current use of insulin (HCC)Use as directed for continuous glucose monitoring change every 10 days . 3 each ctive Dexcom G6 Transmitter Simran Indications:Type 2 diabetes mellitus with diabetic polyneuropathy, with long- term current use of insulin (HCC)Use as directed for continuous glucose monitoring change every 3 months . 1 each ctive Dexcom G6 Finisher [facility] Indications:Type 2 diabetes mellitus with diabetic polyneuropathy, with long- term current use of insulin (HCC)Use as directed for continuous glucose monitoring . 1 each 12/03/2023ctive glucagon (Gvoke HypoPen 2-Pack) 1 mg/0.2 mL AtIn Indications:Type 2 diabetes mellitus with diabetic polyneuropathy, with long- term current use of insulin (HCC)Inject 0.2 mL (1 mg total) under the skin as needed . 2 mL ctive insulin lispro (AdmeLOG,HumaLOG) 100 unit/mL injection Indications:Type 2 diabetes mellitus with diabetic polyneuropathy, with long- term current use of insulin ([facility])Inject up to 150 units once daily via pump . 50 mL ctive busPIRone (BUSPAR) 30 MG tablet Take 1 (one) tablet (30 mg total) by mouth 2 (two) times a day .Active blood sugar diagnostic (glucose blood) strips Indications:Type 2 diabetes mellitus with diabetic polyneuropathy, with long- term current use of insulin (HCC)by Miscellaneous route 3 (three) times a day As a backup to CGM to test blood sugar. One Touch Verio . 100 strip ctive lancets [facility] Indications:Type 2 diabetes mellitus with diabetic polyneuropathy, with long- term current use of insulin (HCC)1 Lancet by Miscellaneous route 3 (three) times a day . 100 each ctive alcohol swabs PadM Indications:Type 2 diabetes mellitus with diabetic polyneuropathy, with long- term current use of insulin (HCC)Apply 1 (one) Swab. topically 5 (five) times a day Clean area before administering insulin. . 150 each ctive miscellaneous medical supply Misc 1 each by Miscellaneous route daily . 100 each ctive timolol (TIMOPTIC) 0.5 % ophthalmic solution Administer 1 (one) drop into the left eye daily .12/15/2023ctive metFORMIN (GLUCOPHAGE) 1000 MG tablet Indications:Diabetic ulcer of right foot associated with type 2 diabetes mellitus, unspecified part of foot, unspecified ulcer stage (HCC)Take 1 (one) tablet (1,000 mg total) by mouth 2 (two) times a day . 60 tablet ctive Omnipod 5 G6 Pods, Gen 5, Crtg 01/29/2024ctive lamoTRIgine (LAMICTAL) 25 MG tablet Take 1 (one) tablet (25 mg total) by mouth 2 (two) times a day . 60 tablet ctive vitamin with Ca-Iron-FA 27-1 mg Tab Take 1 (one) tablet by mouth daily .Active INSULIN PUMP CARTRIDGE SUBQ Inject under the skin Use as directed .Active ondansetron (ZOFRAN-ODT) 4 MG disintegrating tablet Dissolve 1 (one) tablet (4 mg total) on top of tongue every 8 (eight) hours as needed for nausea . 20 tablet 5Active QUEtiapine (SEROQUEL) 400 MG tablet Indications:Bipolar 1 disorder (HCC),Insomnia, unspecified typeTake 2 (two) tablets (800 mg total) by mouth nightly . 60 tablet 5Active Omnipod 5 G6-G7 Pods, Gen 5, Crtg 5Active Rexulti 1 mg Tab TAKE 1 TABLET DAILY FOR 7 DAYS, THEN 2 DAILY FOR 7 DAYS AND AFTER IF TOLERATED FOR KLJXODBPT20/02/2025Active hydrOXYzine (VISTARIL) 50 MG capsule Take 1 (one) capsule (50 mg total) by mouth 3 (three) times a day as needed . 5Active omeprazole (PRILOSEC) 40 MG capsule Take 1 (one) capsule (40 mg total) by mouth daily . 90 capsule 5Active citalopram (CELEXA) 40 MG tablet Indications:Bipolar 1 disorder (HCC)Take 1 (one) tablet (40 mg total) by mouth daily . 90 tablet 5Active nortriptyline (PAMELOR) 25 MG capsule Indications:Chronic nonintractable headache, unspecified headache type,Insomnia, unspecified typeTake 1 (one) capsule (25 mg total) by mouth nightly . 90 capsule 5Active pantoprazole (PROTONIX) 40 MG tablet Indications:Gastroesophageal reflux disease, unspecified whether esophagitis presentTake 1 (one) tablet (40 mg total) by mouth daily . 90 tablet 5Active chlorthalidone (HYGROTON) 25 MG tablet Indications:Primary hypertensionTake 1 (one) tablet (25 mg total) by mouth daily . 90 tablet 5Active lisinopriL (PRINIVIL,ZESTRIL) 40 MG tablet Indications:Primary hypertensionTake 1 (one) tablet (40 mg total) by mouth daily . 90 tablet 5Active levothyroxine (SYNTHROID, LEVOTHROID) 75 MCG tablet Indications:Hypothyroidism, unspecified typeTake 1 (one) tablet (75 mcg total) by mouth once daily . 90 tablet 5Active metoprolol succinate (TOPROL-XL) 50 MG 24 hr tablet Indications:Primary hypertensionTake 1 (one) tablet (50 mg total) by mouth daily . 90 tablet 5Active loratadine (CLARITIN) 10 mg tablet Take 1 (one) tablet (10 mg total) by mouth daily . 90 tablet 5Active traZODone (DESYREL) 100 MG tablet Indications:Insomnia, unspecified typeTake 1 (one) tablet (100 mg total) by mouth nightly as needed for sleep . 90 tablet 5Active albuterol (PROVENTIL) 2.5 mg /3 mL (0.083 %) nebulizer solution Indications:Chronic obstructive pulmonary disease, unspecified COPD type (HCC) Take 3 mL (2.5 mg total) by nebulization every 6 (six) hours as needed for wheezing or shortness ofbreath . 75 mL 5Active albuterol 90 mcg/actuation inhaler Indications:Chronic obstructive pulmonary disease, unspecified COPD type (HCC) Inhale 1 (one) puff every 4 to 6 hours as needed for shortness of breath or wheezing . 18 g 5Active polyethylene glycol (MIRALAX) 17 gram powder Take 17 (seventeen) g by mouth daily as needed (constipation) . 100 packet 5Active zinc oxide-white petrolatum 17-57 % Pste Apply 1 Application topically daily . 113 g 5Active atorvastatin (LIPITOR) 80 MG tablet Take 1 (one) tablet (80 mg total) by mouth daily . 90 tablet 5Active levETIRAcetam (KEPPRA) 1000 MG tablet Take 1 (one) tablet (1,000 mg total) by mouth 2 (two) times a day . 60 tablet 5Active diazePAM (VALIUM) 5 MG tablet Indications:Claustrophobia1 tab prior to exam . 1 tablet 5Active atorvastatin (LIPITOR) 40 MG tablet Take 1 (one) tablet (40 mg total) by mouth every evening .3Active hydrOXYzine (VISTARIL) 100 MG capsule TAKE 1 CAPSULE BY MOUTH EVERYDAY AT BEDTIME FOR SLEEP AND ZMXMXHE1203/01/2025 Active paliperidone (INVEGA) 9 MG 24 hr tablet Take 1 (one) tablet (9 mg total) by mouth daily .03/01/2025tive clopidogreL (PLAVIX) 75 mg tablet Take 1 (one) tablet (75 mg total) by mouth .5Active insulin glargine (LANTUS) 100 unit/mL injection Inject 30 (thirty) Units under the skin 2 (two) times a day .5Active pregabalin (LYRICA) 75 MG capsule Indications:DDD (degenerative disc disease), lumbar,Lumbar radiculopathyTake 1 (one) capsule (75 mg total) by mouth 2 (two) times a day (Days supply per fill: 30) . 60 capsule 5Active tiZANidine (Zanaflex) 4 MG tablet Indications:DDD (degenerative disc disease), lumbarTake 2 tabs p.o. nightly . 60 tablet 5Active oxyCODONE-acetaminophen (PERCOCET) 7.5-325 mg per tablet Indications:Lumbar stenosis with neurogenic claudicationTake 1 (one) tablet by mouth 3 (three) times a day as needed for pain . 90 tablet /5Active paliperidone (INVEGA) 6 MG 24 hr tablet Take 1 (one) tablet (6 mg total) by mouth daily ./ Discontinued(Dose adjustment) oxyCODONE-acetaminophen (PERCOCET) 5-325 mg per tablet Indications:Chronic pain syndromeTake 1 (one) tablet by mouth 2 (two) times a day as needed for pain . 60 tablet /Discontinued(Dose adjustment) oxyCODONE-acetaminophen (PERCOCET) 5-325 mg per tablet Indications:Chronic pain syndromeTake 1 (one) tablet by mouth 3 (three) times a day as needed for pain (Days supply per fill: 30) Start: 12/22/24. 90 tablet Discontinued(Dose adjustment) pregabalin (LYRICA) 75 MG capsule Indications:DDD (degenerative disc disease), lumbar,Lumbar radiculopathyTake 1 (one) capsule (75 mg total) by mouth 2 (two) times a day (Days supply per fill: 30) Start: 12/22/24. 60 capsule Discontinued(Reorder (Suppress CancelRx Message to Pharmacy)) tiZANidine (Zanaflex) 4 MG tablet Indications:DDD (degenerative disc disease), lumbarTake 2 tabs p.o. nightly . 60 tablet Discontinued(Reorder (Suppress CancelRx Message to Pharmacy)) oxyCODONE-acetaminophen (PERCOCET) 7.5-325 mg per tablet Indications:Lumbar stenosis with neurogenic claudicationTake 1 (one) tablet by mouth 3 (three) times a day as needed for pain . 90 tablet Discontinued(Reorder (Suppress CancelRx Message to Pharmacy)) Active Problems ProblemNoted DateDiagnosed DateSick sinus /27/2025DDD (degenerative disc disease), axcknz1905/13/2024Lumbar nikhufoismgpn83/20/2024Other chronic pain 05/13/2024Myofascial pain ciqsnjlq94/20/2024ostoperative ammtbmadh62/03/2024Toe lqcafqefqiphr16/01/2024hronic pain of both knees03/22/2024andidiasis of breast 03/22/2024bnormal pigmentation of skin03/22/2024Hypertensive wsebxvp4402/11/2024 Chronic pain qyukmsrs24/19/2024iabetic ulcer of left great toe01/12/2024etinal uiprmdgwsy17/18/2024KD (chronic kidney disease)10/13/2023Urinary incontinence 09/10/2023hronic rnznazadu71/18/9290Nnoufxnxxuguaswraizx45/18/2024Family history of pulmonary btchdcah36/11/2024 Overview (09/03/2023): Mother Family history of kovgvmcw14/11/2024 Overview (09/03/2023): Mother History of jpvqkb0905/17/2023Visual loss, left eye05/17/2023Left-sided weakness 05/10/2023Vitamin B12 nqqvihnewk27/15/2023Vitamin D ekztineibx60/15/2023 Cigarette nicotine soxwijgtrc64/15/2023OPD (chronic obstructive pulmonary disease)05/08/2023ERD (gastroesophageal reflux disease)05/06/2023Hypothyroidism 05/06/2023iabetic peripheral sbflflvsit37/13/0016Wfjqhtnm63/13/2023eneralized dkvcliyx95/13/2023Muscle spasms of both lower slyazfqfhsl34/13/2023owel wpyyfijipuss00/13/2023hronic chest pain03/29/2023Type 2 diabetes mellitus with diabetic polyneuropathy, with long-term current use of qkniwor3906/03/2020 Assessment & Plan (06/05/2020 5:32 PM EST): [...] 5 day PRN S/P placement of cardiac wkbcfrueq20/10/2015 Assessment & Plan (12/01/2014 9:11 AM EDT): - Pacemaker since age 35 - Placed by Dr. 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 - Follow up with [facility] EP as planned. Cvhdlmwwxxgd54/09/2015 Assessment & Plan (06/04/2020 12:44 PM EST): [...] EST): Continue home colette feng Resolved Problems ProblemNoted DateDiagnosed DateResolved DateEncounter for monitoring opioid maintenance zadkebw46/Diabetic foot wbbuyqirw73/03/2024 08/05/2024bdominal wound xjwqwxslqy59/29/202403/Weight gain05/17/2023 02/11/2024iabetic ulcer of right foot associated with type 2 diabetes mellitus /hest pain, unspecified type/Seizure KI (acute kidney injury) Assessment & Plan (12/06/2014 9:06 AM EDT): Creatinine worsening. Nephrology following. Abx on hold, vancomycin still therapeutic. Assessment & Plan (12/08/2014 1:22 PM EDT): Patient with no history of kidney related disease. Baseline Creatinine per chart review 0.4-0.6. She was at this level on admission but acutely increased to 4.35 on 12/03. Nephrology following, likelymultifactorial - Dehydration, Contrast exposure, Vancomycin toxicity. - [...] Vanco given especially in the setting of dehydration.Hold any further doses until trough appropriate ( random currently at 45) Continue serial chem Strict I/O No need for AIR CONDITIONING SHEET METAL INSTALLER yet. Will continue to watch for signs that AIR CONDITIONING SHEET METAL INSTALLER is indicated. Will follow along with you closely. Assessment & Plan (12/09/2014 10:19 AM EDT): - Suspect multifactorial related to hypotension, contrast and possible meds (ATB?) - Cr normal at baseline, her creatinine increased to 6.6 and then started to trend down and was 5.5on day of discharge - nephrology service managed [...] labs checked on Thursday and Thursday Severe gkftle36 Assessment & Plan (12/07/2014 8:28 AM EDT): Patient transferred to ICU after developing fever of 100.4 and hypotension with associated increasein creatinine to 5.39 from 0.66 on admission 3 days ago. Likely secondary to MRSA cellulitis on chin. - Following Vanco levels, will resume Dapto once Vancomycin levels are no longer therapeutic with plan for eventual transition to PO abx - Blood pressures stable overnight, afebrile Metabolic acidosis, normal anion gap (NAG) Assessment & Plan (12/07/2014 8:34 AM EDT): Patient found to be acutely acidotic this afternoon with Bicarb of 19. Anion gap 14. Likely secondary to SOLO from hypoperfusion due to sepsis. - Resolved. Transitioned off the bicarb drip yesterday. Bicarb 21 this morning. 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 Abscess of chinellulitis of chin Assessment & Plan (12/08/2014 1:24 PM EDT): [...] during her hospitilazation Diabetes mellitus type II, amhekchleihn36/09/201512/ Assessment & Plan (06/04/2020 12:44 PM EST): [...] sugars on this regimen History of MRSA mgqkzawqf10/09/640384/ Assessment & Plan (12/05/2014 8:11 AM EDT): Pt reports several MRSA infections in the past. Treating current chin infection. Bactroban to naresfor 7 days. Can use hibiclens bodywash at [...] baths and bactroban for her nares. Encounters DateTypeDepartmentCare MsnjPmztkltfmld59/28/2025[facility] [place] [address] Mihai Banerjee CNP DDD (degenerative disc disease), lumbar; Lumbar radiculopathy; Lumbar stenosis with neurogenic waijmfglrcuc23/15/2025 11:30 AM EDTOffice Visit [facility] [address] [place] [address] Mihai Banerjee CNP [place]asso, Christian Louis, MD Back pain with radiculopathy (Primary Dx); Degeneration of intervertebral disc of lumbar region with discogenic back pain and lower extremity pain; Chronic pain of right knee03/08/2025Ref[facility], Neuroscience [address] [place] [phone] Jem Kumar MD Claustrophobia (Primary Dx)03/08/20256750Tfbrmb01/03/2025Documentation [facility] [place] [address] Jay Peralta MA Power scooter DME02/23/2025 2:00 PM EDTOffice Visit [facility] [place] [address] Mihai Banerjee CNP Lumbar stenosis with neurogenic claudication (Primary Dx); Left hand pain; Fall, initial encounter; Lumbar radiculopathy; Chronic pain syndrome; Myofascial pain syndrome; Degeneration of intervertebral disc of lumbar region with discogenic back pain and lower extremity pain02/23/2025Travelfrom Last 3 Months Immunizations ImmunizationAdministration DatesNext DueINFLUENZA IIV4 6MO OR > FLUARIX/FLUZONE/AFLURIA 584051207/07/2022,04/09/2022,06/05/2020Influenza RIV3 (FLUBLOK) 9 years old or greater - wcsacyk1902/11/2024Influenza Whole05/28/2015 Influenza, Injectable, Quadrivalent, Preservative Free03/06/2021,02/22/2018 Influenza, Seasonal, Nvkokubjdn98/02/2014Influenza, Vgeojwlrcax94/04/2016Moderna SARS-CoV-2 Wqxwgmkvqgj70/11/2021neumococcal Conjugate 20-Valent (Prevnar 20) 05/06/2023,3Pneumococcal Polysaccharide (Pneumovax 23)03/06/2021, 07/06/2014Tdap02/21/2022 Family History Medical HistoryRelationCommentsDiabetesFatherDiabetes type IIFatherHypertension FatherSeizuresMotherRelationStatusCommentsFatherMother Social History Tobacco UseTypesPacks/DayYears UsedDateSmoking Tobacco: YgvvfrLtpllbnmyx512.3 Started: 09/30/2014Passive Smoke Exposure: CurrentSmokeless Tobacco: Never Tobacco Cessation:Counseling Given: Not Answered Comments:Vaping 6 mg nicotine Alcohol UseStandard Drinks/WeekCommentsNo0 (1 standard drink = 0.6 oz pure alcohol)OASIS A1250: TransportationAnswerDate RecordedLack of Transportation (Medical)04/22/2023Lack of Transportation (Non-Medical)04/22/2023atient Unable or Declines to RdptmdsWp28/29/2023HC UtilitiesAnswerDate RecordedIn the past 12 months has the electric, gas, oil, or water company threatened to shut off services in your home?No04/27/2024Humiliation, Afraid, Rape, and Kick questionnaireAnswerDate RecordedWithin the last year, have you been afraid of your partner or ex-partner?No04/27/2024Within the last year, have you been humiliated or emotionally abused in other ways by your partner or ex-partner?No 04/27/2024Within the last year, have you been kicked, hit, slapped, or otherwise physically hurt by your partner or ex-partner?No04/27/2024Within the last year, have you been raped or forced to have any kind of sexual activity by your part ner or ex-partner?No04/27/2024Overall Financial Resource Strain (CARDIA)Answer Date RecordedHow hard is it for you to pay for the very basics like food, housing, medical care, and heating?Somewhat hard01/13/2024HQ-2AnswerDate RecordedPHQ-2 Total Kwpfn97105/29/2023Hunger Vital SignAnswerDate RecordedWithin the past 12 months, you worried that your food would run out before you got the money to buymore.Never true04/27/2024Within the past 12 months, the food you bought just didn't last and you didn't have money to get more.Never true 04/27/2024RAPARE - TransportationAnswerDate RecordedIn the past 12 months, has lack of transportation kept you from medical appointments or from getting medications?No04/27/2024In the past 12 months, has lack of transportation kept you from meetings, work, or from getting things needed for daily living?No 04/27/2024Housing Stability Vital SignAnswerDate RecordedIn the last 12 months, was there a time when you were not able to pay the mortgage or rent on time?Yes 05/11/2023Number of Places Lived in the Last YearNot on file05/11/2023In the last 12 months, was there a time when you did not have a steady place to sleep or slept in ashelter (including now)?Yes05/11/2023Housing Stability Vital Sign AnswerDate RecordedIn the last 12 months, was there a time when you were not able to pay the mortgage or rent on time?No04/27/2024In the past 12 months, how many times have you moved where you were living?t any time in the past 12 months, were you homeless or living in a fpc (including now)?No 04/27/2024CommentsNoSex and Gender InformationValueDate RecordedSex Assigned at BirthNot on fileLegal NjaThjrmw88/26/2014 3:26 PM EDTGender Identity Fvglom1406/03/2020 5:59 PM ESTSexual SldigligfsoQirrsjsx57/10/2021 5:59 PM EST Last Filed Vital Signs Vital SignReadingTime TakenCommentsBlood Gbkwfads095/2668402/23/2025 1:51 PM EDT Ncsdf052502/23/2025 1:51 PM KCVWpsxrheiezf25.4 ??C (97.6 ??F)09/22/2024 3:10 PM EDTRespiratory Jgzp079409/22/2024 5:08 PM EDTOxygen Edcpalhrxe04%09/23/2024 10:55 AM EDTInhaled Oxygen Concentration--Jixwwh606 kg (280 lb)02/23/2025 1:51 PM EDT Wghjuy345.5 cm (5' 2 )02/23/2025 1:51 PM EDTBody Mass Index51.211 1:51 PM EDT Plan of Treatment DateTypeDepartmentCare Team (Latest Contact Info)Kgaovstymlh51/01/2025 11:15 AM ESTAppointment [facility] [address] [place] [address] Jem Kumar MD [address] [facility] [address] [place] [address] 05/30/2025 3:00 PM ESTOffice Visit [facility] [place] [address] [place] [phone] Morgan Velez, [address] [place] [address] Health MaintenanceDue DateLast DoneCommentsCT Pofdglimxods1977Colonoscopy 1977Colorectal Cancer Screening/Zwdnzrqdew1977Fecal DNA1977 Fecal occult blood test (FOBT,FIT)1977Flexible rawhknfuvpzmw1977MMR Vaccines (1 of 1 - Standard series)1978Urine (micro)albumin/creatinine ratio - Mgajuihs24/25/1987Hepatitis B Vaccines (1 of 3 - 19+ 3-dose series) 1996Pap Smear1998HPV/Zicnas3304/18/20073790Hzdmxibxq27/25/2017Diabetic Foot Exam/Wellness Visit//iabetic Eye Exam /OVID-19 Vaccine (3 - 2024- season)/, 12/02/2020Influenza Vaccine (#1)/, 05/06/2023, 04/09/2022, Additional history existseGFR ??? Edqfdhjh14/05/2024, 09/18/2024, 08/02/2024, Additional history qeygbjL6G14/03/2025, 12/03/2024, 10/01/2024, Additional history existsZoster Vaccines (1 of 2)2027 Tetanus/Diphtheria/Pertussis (2 - Td or Tdap)2RSV Vaccines (1 - 1-dose 75+ series)2Pneumococcal DjyaoegVbbkpelhi57/13/2023, 03/29/2023, 03/06/2021, Additional history existsHIV ScreeningCompleted 08/02/2024Hepatitis C SrsjivnaaDiurgbocz62/11/2025ervical Cancer Screening DiscontinuedHIB VaccinesAged OutNo longer eligible based on patient's age to complete this topicHPV VaccinesAged OutNo longer eligible based on patient's age to complete this topicHepatitis A VaccinesAged OutNo longer eligible based on patient's age to complete this topicIPV VaccinesAged OutNo longer eligible based on patient's age to complete this topicMeningococcal ACWY VaccineAged OutNo longer eligible based on patient's age to complete this topicMeningococcal B VaccineAged OutNo longer eligible based on patient's age to complete this topic Rotavirus VaccinesAged OutNo longer eligible based on patient's age to complete this topic Procedures Procedure NamePriorityDate/TimeAssociated DiagnosisCommentsSCAN OTHER ORDERS 03/08/2025ASIC METABOLIC OICDXVGTN11/01/2025 3:11 PM EDT HIV 1/2 SCREEN (4TH GENERATION)Zcpcwbw5108/02/2024 3:40 PM EDT Encounter for health-related screening HEMOGLOBIN A2TAszkrja54/11/2025 3:40 PM EDT Type 2 diabetes mellitus with diabetic polyneuropathy, with long-term current use of insulin (HCC) HEPATITIS C ANTIBODY WITH REFLEX TO HCV VIRUS VLJATNWTAIVVDAuwaced15/11/2025 3:40 PM EDT Encounter for health-related screening HM DIABETES FOOT TDPUFjdjgge24/21/2023from Last 3 Months or Most Recently Relevant to Health Maintenance Results * SCAN OTHER ORDERS (03/08/2025)Specimen (Source)Anatomical Location / LateralityCollection Method / VolumeCollection TimeReceived Time03/08/2025 Narrative Authorizing ProviderResult TypeResult StatusChristian Wei Kumar MDSCANNED ORDERSFinal Result * (ABNORMAL) BMP (09/22/2024 3:11 PM EDT)ComponentValueRef RangeTest Method Analysis TimePerformed AtPathologist VdtaaifcwWeeqze791(L)135 - 145 mmol/L 09/22/2024 3:44 PM EDTM LABPotassium4.03.5 - 5.1 mmol/L09/22/2024 3:44 PM EDTM OJKTjthvwuy25(L)98 - 108 mmol/L09/22/2024 3:44 PM EDTM LABBicarbonate 17(L)21 - 32 mmol/L09/22/2024 3:44 PM EDTM LABAnion Ypb4833 - 20 mmol/L 09/22/2024 3:44 PM [facility] QQECmofxhi209(HH)65 - 99 mg/dL09/22/2024 3:44 PM EDT [facility] YNKNPD42(H)8 - 25 mg/dL09/22/2024 3:44 PM EDTM LABCreatinine1.71(H)0.40 - 1.10 mg/dL09/22/2024 3:44 PM ED[facility] UQRfCZX60(L)>=60 mL/min/1.73 m2 09/22/2024 3:44 PM ED[facility] LABComment:Estimated GFR was calculated using the 2020 CKD-EPI creatinine equation.BUN/Creatinine Ratio17.510.0 - 20. 3:44 PM EDCAP[facility] LABCalcium8.98.4 - 10.2 mg/dL09/22/2024 3:44 PM EDCAP[facility] LAB Specimen (Source)Anatomical Location / LateralityCollection Method / Volume Collection TimeReceived TimeBloodBLOOD SPECIMEN / UnknownVenipuncture / Pksisoq5609/22/2024 3:11 PM EDT09/22/2024 3:19 PM EDT Narrative [facility] - 09/22/2024 3:44 PM EDT [facility] has implemented the eGFR calculation approach that does not have a coefficient for race that conforms to the NKF-ASN Task Force Recommendations. Authorizing ProviderResult TypeResult StatusMatthew Clark Pitts MDCLAY COUNTY MED[facility] BLOOD ORDERABLESFinal ResultPerforming OrganizationAddressCity/State/ZIP CodePhone Number [facility] [address] [place] [address] * Hepatitis C Ab with Reflex to HCV Virus Quantitation (08/02/2024 3:40 PM EDT) ComponentValueRef RangeTest MethodAnalysis TimePerformed AtPathologist SignatureHepatitis C Ab (Quest)VCX-WIPCVNPASHV-NBNRNUNNPMHSM [facility] HOSPITALComment: HCV antibody was non-reactive. There is no laboratory evidence of HCV infection. In most cases, no further action is required. However, if recent HCV exposure is suspected, a test for HCV RNA (test code 44862) is suggested. For additional information please refer to http://education.Liligo.com/faq/CGP03z5 (This link is being provided for informational/ educational purposes only.) Specimen (Source)Anatomical Location / LateralityCollection Method / Volume Collection TimeReceived TimeBloodBLOOD SPECIMEN / Rqhylkn8908/02/2024 3:40 PM EDT 08/02/2024 3:41 PM EDT Narrative Authorizing ProviderResult TypeResult StatusTona Nielsen PA-CHUY BLOOD ORDERABLESFinal ResultPerforming OrganizationAddressCity/State/ZIP CodePhone Number [employer] [facility] [address] [place] [address], [place] * HIV Antibody (HIV1/HIV2) (08/02/2024 3:40 PM EDT)ComponentValueRef RangeTest MethodAnalysis TimePerformed AtPathologist SignatureHiv Ag/Ab 4Th Gen (Globial) CIU-QCUPUKIBLPU-QHFNZCHDOXAJL DIAGNOSTICS [facility] C[facility]ERS OF AMERICAComment: HIV-1 antigen and HIV-1/HIV-2 antibodies were not detected. There is no laboratory evidence of HIV infection. PLEASE NOTE: This information has been disclosed to you from records whose confidentiality may be protected by state law. ??If your state requires such protection, then the state law prohibits you from making any further disclosure of the information without the specific written consent of the person to whom it pertains, or as otherwise permitted by law. A general authorization for the release of medical or other information is NOT sufficient for this purpose. ?? For additional information please refer to http://education.Liligo.com/faq/TMY216 (This link is being provided for informational/ educational purposes only.) The performance of this assay has not been clinically validated in patients less than 2 years old. Specimen (Source)Anatomical Location / LateralityCollection Method / Volume Collection TimeReceived TimeBloodBLOOD SPECIMEN / Lebqwpq0808/02/2024 3:40 PM EDT 08/02/2024 3:41 PM EDT Narrative Authorizing ProviderResult TypeResult StatusTona Nielsen PA-CLAB BLOOD ORDERABLESFinal ResultPerforming OrganizationAddressCity/State/ZIP CodePhone Number [facility] [employer] [facility] [address] [place] [address], * (ABNORMAL) Hemoglobin A1c (08/02/2024 3:40 PM EDT)ComponentValueRef RangeTest MethodAnalysis TimePerformed AtPathologist SignatureHemoglobin A1C10.6(H)<5.7 % of total HgbRocket Design CANCER TREATMENT CENTERS OF AMERICAComment: For someone without known diabetes, a hemoglobin [...] A1c for diagnosis of diabetes for children. ?? Specimen (Source)Anatomical Location / LateralityCollection Method / Volume Collection TimeReceived TimeBloodBLOOD SPECIMEN / Sxddzrs0308/02/2024 3:40 PM EDT 08/02/2024 3:41 PM EDT Narrative Authorizing ProviderResult TypeResult StatusLaura Leann RUBALCAVA-GUTIERREZ BLOOD ORDERABLESFinal ResultPerforming OrganizationAddressCity/State/ZIP CodePhone Number [facility] [employer] [facility] [address] [place] [address], * DIABETES FOOT EXAM (04/14/2023)Specimen (Source)Anatomical Location / LateralityCollection Method / VolumeCollection TimeReceived Time04/14/2023 Narrative Authorizing ProviderResult TypeResult StatusHistorical Provider MDHEALTH MAINTENANCEFinal Result from Last 3 Months or Most Recently Relevant to Health Maintenance Insurance Advance Directives For more information, please contact: [phone] TypeDate RecordedPatient RepresentativeExplanationAdvance Directives and Living Will11/09/2023 8:44 PM * Full Code (Latest Code Status on File) Date ActivatedDate HznpiteuomkPsndpspd88/4/2024 1:09 AM04/29/2024 5:58 PM * Full Code Date ActivatedDate XhhzbfeeohfHqolcvgx63/3/2024 11:46 PM04/27/2024 1:09 AM * Full Code Date ActivatedDate DafjnxqsxadZcoiceto43/1/2024 12:34 AM04/04/2024 7:43 PM * Full Code Date ActivatedDate InactivatedComments01/12/2024 5:17 PM01/18/2024 4:48 PM * Full Code Date ActivatedDate XcqebmpcjspZleaqejy96/17/2023 4:09 PM05/13/2023 6:15 PM Care Teams Team MemberRelationshipSpecialtyStart DateEnd Date System, Provider Not In PCP - Btxpypz10/2/25
--- OUTSIDE RECORDS SUMMARY | 2025-04-12 15:25 | XMS_ITS | Clinical Summary ---
Author Organization [facility] Address [address] [place] [address] Care Team Providers Care Alley Worker Name Role Phone Mk Conti MD Unavailable [phone] Tona Nielsen Primary Care Provider [phone] Allergies Active AllergyReactionsCriticalityNoted VeiaQhxuiviqVhhrohbkpfryqRrjtv82/10/2025 Adhesive Tape-WhthluqjaTfcrytc93/21/2018CodeineOther,Hives,Rash,GI intolerance High02/16/2008 Get very angry Other reaction(s): Aggressive Behavior hives FentanylGI intolerance,Hallucinations,Nausea And Vomiting,TkcrdCbjk88/01/2019 Other Reaction(s): Renal Failure LinezolidGI intolerance,Nausea And Vomiting,HhuumKmpo35/28/2023 Other Reaction(s): Renal Failure LorazepamHallucinations,GhjboEznp28/17/2022 Other Reaction(s): Other (See Comments), Renal Failure MorphineGI intolerance,Other,QnwxCyog97/24/2008 Other Reaction(s): Aggressive Behavior hives Get very angry Other reaction(s): Aggressive Behavior Nsaids (Non-Steroidal Anti-Inflammatory Drug)Gnikxpy4303/30/2017 shuts my kidney's down OvcyjfcgfqystdoiNvyfo38/11/2024 Other Reaction(s): Other (See Comments) She reports Compazine made her feel anxious and grumpy She reports Compazine made her feel anxious and grumpy PropoxypheneGI intolerance,Nausea And BxyxdkacBze99/01/2016Propoxyphene N-AcetaminophenGI intolerance,RjjerGxpqai10/24/2008TramadolGI intolerance,Other, Hives,Rash,HpgoyvvCumu91/23/2012 Other Reaction(s): Other (See Comments) seizures seizures VancomycinOther,OouseYray24/30/2017 Other Reaction(s): Contraindication-Medical Surgical, KIDNEY & URINARY TRACT DISORDERS EXCEPT RENAL FAILURE W MAJOR CC, Other (See Comments) Shut down her kidneys Shuts my kidneys down Shuts kidney down Shuts my kidneys down Shut down her kidneys Shuts kidney down Medications MedicationSigDispense QuantityRefillsLast FilledStart DateEnd DateStatus ondansetron (Zofran) 4 mg tablet Take 4 mg by mouth every 8 (eight) hours if needed for nausea or vomiting.Active oxyCODONE-acetaminophen (Percocet) 5-325 mg tablet Take 1 tablet by mouth every 8 (eight) hours if needed for severe pain (8-10 pain score).Active pantoprazole (ProtoNix) 40 mg EC tablet Take 40 mg by mouth before breakfast. Do not crush, chew, or split.Active QUEtiapine (SEROquel) 400 mg tablet Take 400 mg by mouth at bedtime.Active pregabalin (Lyrica) 75 mg capsule Take 75 mg by mouth two times daily.Active diphenhydrAMINE-acetaminophen (Tylenol PM) 25-500 mg per tablet Take 1 tablet by mouth if needed at bedtime for sleep.Active levETIRAcetam (Keppra) 1,000 mg tablet Take 1,000 mg by mouth two times daily.Active tiZANidine (Zanaflex) 4 mg capsule Take 8 mg by mouth three times daily.Active aspirin 81 mg EC tablet Take 81 mg by mouth in the morning.Active levothyroxine (Synthroid, Levoxyl) 75 mcg tablet Take 75 mcg by mouth before breakfast.Active loratadine (Claritin) 10 mg tablet Take 10 mg by mouth in the morning.Active nortriptyline (Pamelor) 25 mg capsule Take 25 mg by mouth at bedtime.Active insulin lispro (HumaLOG) 100 unit/mL injection Inject under the skin with breakfast, with lunch, and with evening meal. Sliding scaleActive citalopram (CeleXA) 40 mg tablet Take 40 mg by mouth in the morning.Active brexpiprazole (Rexulti) 1 mg tablet Take 1 mg by mouth in the morning.Active hydrOXYzine HCL (Atarax) 50 mg tablet Take 50 mg by mouth every 6 (six) hours if needed for itching.Active metoprolol succinate XL (Toprol-XL) 50 mg 24 hr tablet Take 50 mg by mouth in the morning. Do not crush or chew.Active urea (Carmol) 40 % cream Apply topically two times daily.Active polyethylene glycol (Glycolax) 17 gram packet Take 17 g by mouth if needed each day.Active paliperidone (Invega) 6 mg 24 hr tablet Take 6 mg by mouth in the morning. Do not crush, chew, or split.Active atorvastatin (Lipitor) 20 mg tablet Indications:NSTEMI (non-ST elevated myocardial infarction) (CMS/HCC)Take 1 tablet (20 mg) by mouth at bedtime. 30 tablet 5Active Active Problems ProblemNoted DateDiagnosed PaqdGbmwtrjooyfy41/12/2025 Assessment & Plan (10/04/2024 12:14 PM EDT): - Ca 8.2 today - daily CBC Consult PT/OT/CARDIOLOGY NURSE PRACTITIONER Will DC ene Assessment & Plan (10/03/2024 3:02 PM EDT): Ca 6.6 - albumin 2.5, corrected calcium 7.4 - will give one gram of calcium Type 2 diabetes mellitus with circulatory disorder, with long-term current use of vbetrso3210/02/2024 Assessment & Plan (10/04/2024 12:14 PM EDT): [...] units bid - currently ISS Sick sinus /11/2025 Assessment & Plan (10/04/2024 12:14 PM EDT): - s/p pacemaker - interrogation ordered- asked RN to call rep Assessment & Plan (10/03/2024 10:35 AM EDT): - s/p pacemaker - interrogation ordered Assessment & Plan (10/02/2024 11:21 AM EDT): - s/p pacemaker - interrogation ordered Acute renal failure with acute tubular necrosis superimposed on stage 3a chronic kidney nzbdqva6010/02/2024 Assessment & Plan (10/04/2024 12:14 PM EDT): -Cr improved today to 1.75 - renal US negative - neph consulted Assessment & Plan (10/03/2024 3:02 PM EDT): -Cr improved today to 1.89 - renal US negative - neph consulted Assessment & Plan (10/02/2024 11:21 AM EDT): - Cr 3.0 today - neph consulted Qrcqzbg9310/02/2024 Assessment & Plan (10/04/2024 12:14 PM EDT): - neuro consulted at admission - Continue LEV 1g BID at least until outpt neuro follow up - Patient will need referral to [facility] neurology (for epileptologist) at discharge. - Recommend PT/OT. - Neuro will sign off. Assessment & Plan (10/03/2024 10:35 AM EDT): - neuro consulted at admission - Continue LEV 1g BID at least until outpt neuro follow up - Patient will need referral to [facility] neurology (for epileptologist) at discharge. - Recommend PT/OT. - Neuro will sign off. Assessment & Plan (10/02/2024 11:11 AM EDT): - neuro consulted at admission - Continue LEV 1g BID at least until outpt neuro follow up - Patient will need referral to [facility] neurology (for epileptologist) at discharge. - Recommend PT/OT. - Neuro will sign off. Bipolar 1 nijgzryb23/11/2025 Assessment & Plan (10/04/2024 12:14 PM EDT): [...] nightly - continue seroquel 400mg nightly Acquired bhkvrsswptujee24/11/2025 Assessment & Plan (10/04/2024 12:14 PM EDT): [...] serious comorbidity and body mass index (BMI) of50.0 to 59.9 in adult10/02/2024 Assessment & Plan (10/04/2024 12:14 PM EDT): [...] of left foot, limited to breakdown of skin10/02/2024 Assessment & Plan (10/04/2024 12:14 PM EDT): - vascular surgery consulted No plans for debridement at this time. No antibiotics necessary. Upon inspection today this is not ulcer but rather a dry callus, no open tissue present. Recommend to keep callus clean and dry and follow up outpatient follow up with her account manager relief for routine callus paring. No need for [...] outpatient follow up with our service at thistime Assessment & Plan (10/03/2024 3:02 PM EDT): - vascular surgery consulted No plans for debridement at this time. No antibiotics necessary. Upon inspection today this is not ulcer but rather a dry callus, no open tissue present. Recommend to keep callus clean and dry and follow up outpatient follow up with her account manager relief for routine callus paring. No need for [...] outpatient follow up with our service at thistime Assessment & Plan (10/02/2024 11:11 AM EDT): - vascular surgery consulted No plans for debridement at this time No antibiotics necessary Wash wound daily with soap and water, keep dry Will obtain arterial studies to evaluate for peripheral vascular disease NSTEMI (non-ST elevated myocardial infarction)10/01/2024 Assessment & Plan (10/04/2024 12:14 PM EDT): - cards consulted - likely demand ischemia in setting of acute kidney injury, and seizure episode and elevated lactate. Buyt.Intronic device interrogation No current indication for heparin [...] results. Cardiology team will continue to follow Social History Tobacco UseTypesPacks/DayYears UsedDateSmoking Tobacco: Every DayCigarettes Smokeless Tobacco: Never Tobacco Cessation:Ready to Q uit: Not Asked; Counseling Given: Not Answered Alcohol UseStandard Drinks/WeekCommentsNever0 (1 standard drink = 0.6 oz pure alcohol)[facility] UtilitiesAnswerDate RecordedIn the past 12 months has the [employer], gas, oil, or water [email or web address] threatened to shut off services in your home?No 10/01/2024Humiliation, Afraid, Rape, and Kick questionnaireAnswerDate Recorded Within the last year, have you been afraid of your partner or ex-partner?No 10/01/2024Emotionally AbusedNot on file10/01/2024Physically AbusedNot on file 10/01/2024Sexually AbusedNot on file10/01/2024Overall Financial Resource Strain (CARDIA)AnswerDate RecordedHow hard is it for you to pay for the very basics like food, housing, medical care, and heating?Not hard at all10/01/2024UT Safety & EnvironmentAnswerDate RecordedFear of Current or Ex-PartnerNot on file 07/16/2023Emotionally AbusedNot on file07/16/2023hysically AbusedNot on file 07/16/2023Sexually AbusedNot on file07/16/2023hysically or Sexually AbusedNot on file07/16/2023TransportationAnswerDate RecordedIn the past 12 months, has lack of transportation kept you from medical appointments or from getting medications?No10/01/2024Lack of Transportation (Non-Medical)Not on file 10/01/2024Housing Stability Vital SignAnswerDate RecordedIn the last 12 months, was there a time when you were not able to pay the mortgage or rent on time?No 10/01/2024Number of Times Moved in the Last YearNot on file10/01/2024t any time in the past 12 months, were you homeless or living in a long term (including now)? No10/01/2024Hunger Vital SignAnswerDate RecordedWithin the past 12 months, you worried that your food would run out before you got the money to buymore.Never true10/01/2024Ran Out of Food in the Last YearNot on file10/01/2024 CommentsUnknownSex and Gender InformationValueDate RecordedSex Assigned at Not on fileLegal TreVkvfyh70/29/2022 9:59 PM EDTGender IdentityNot on fileSexual OrientationNot on file Last Filed Vital Signs Vital SignReadingTime TakenCommentsBlood Idmufqnt927/68010/05/2024 12:00 PM EDT Drtrs0744/14/2025 12:00 PM BCDDrqquzqqnjn55.2 ??C (97.2 ??F)10/05/2024 12:00 PM EDTRespiratory Trca740910/05/2024 12:00 PM EDTOxygen Nsaxxywyhc42%10/05/2024 12:00 PM EDTInhaled Oxygen Concentration--Xddfpx922 kg (309 lb)10/05/2024 5:00 AM EDT Ortfvp825.5 cm (5' 2.01 )10/01/2024 9:31 AM EDTBody Mass Index56. 9:31 AM EDT Plan of Treatment Health MaintenanceDue DateLast DoneCommentsCT Wjghiflzhnhd1977Colonoscopy 1977Colorectal Cancer Fwwhzrpun1977FIT-DNA1977FIT1977 FOBT1977 6309Igpqehvttgizq1977Diabetes: Retinopathy Yvvclxisl72/25/1987 Depression Qzjtxsxss59/25/1989Hepatitis B Vaccines (1 of 3 - 19+ 3-dose series) 1996Pap Smear1998Cervical Cancer Wyagksyuo96/25/2007HPV/Cotest 04/18/20074661Umvshcjpt54/25/2017Diabetes: Hemoglobin A1C/02/2025, 08/02/2024, 01/12/2024, Additional history existsCOVID-19 Vaccine ( season)/, 02/16/2021, 12/02/2020Influenza Vaccine (#1) /, 05/06/2023, 04/09/2022, Additional history existsZoster Vaccines (1 of 2)2027dult Xzxbjxz18neumococcal Vaccine: Pediatrics (0 to 5 Years) and At-Risk Patients (6 to 64 Years)Completed 05/06/2023, 03/29/2023, 03/06/2021HIB VaccinesAged OutNo longer eligible based on patient's age to complete this topicHPV VaccinesAged OutNo longer eligible based on patient's age to complete this topicIPV VaccinesAged OutNo longer eligible based on patient's age to complete this topicMeningococcal B Vaccine Aged OutNo longer eligible based on patient's age to complete this topic Meningococcal VaccineAged OutNo longer eligible based on patient's age to complete this topicRotavirus VaccinesAged OutNo longer eligible based on patient's age to complete this topic Procedures Procedure NamePriorityDate/TimeAssociated DiagnosisCommentsHEMOGLOBIN I6QIab-Xm 10/01/2024 11:02 AM EDT from Last 3 Months or Most Recently Relevant to Health Maintenance Results * (ABNORMAL) Hemoglobin A1c (10/01/2024 11:02 AM EDT)ComponentValueRef RangeTest MethodAnalysis TimePerformed AtPathologist SignatureHemoglobin A1C10.7(H)4.0 - 6.0 %10/02/2024 9:31 AM [facility] ([facility])Estimated Average Glucose 260mg/dL10/02/2024 9:31 AM [facility] ([facility])Specimen (Source) Anatomical Location / LateralityCollection Method / VolumeCollection Time Received TimeBloodVenous blood specimen / UnknownExisting Catheter / Unknown 10/01/2024 11:02 AM EDT10/01/2024 11:14 AM EDT Narrative Authorizing ProviderResult TypeResult StatusPatria TOBAR BLOOD ORDERABLES Final ResultPerforming OrganizationAddressCity/State/ZIP CodePhone Number [facility] ([facility]) [address], [place] [phone] from Last 3 Months or Most Recently Relevant to Health Maintenance Insurance Advance Directives * Full Code (Latest Code Status on File) Date ActivatedDate InactivatedComments10/01/2024 9:44 AM10/05/2024 7:01 PM Care Teams Team MemberRelationshipSpecialtyStart DateEnd Date Tona Nielsen PA [address] [place] [address] PCP - General10/05/24 Mk Conti MD [address] [place] [address] Orthopaedic Surgery10/05/24
--- OUTSIDE RECORDS SUMMARY | 2025-04-12 15:31 | XMS_ITS | CCD ---
Author Organization [facility] CliniSyde Care Team Providers Care Pad Cutter Name Role Phone Cem Mario Unavailable Unavailable [...] Unavailable Unavailable Breanna Gu Primary Care Physician [phone] [place] Unavailable Unavailable Herlinda June Unavailable Cem Mario DO Primary Care Provider CEM MARIO Primary Care Unavailable ANTOINE SOSA Attending Unavailable Radha Dias Primary Care Physician Pool Heath Primary Care Physician LOLI Franco Primary Care Provider DO Jacob Farfan Emergency Provider DO Ezekiel Mathew Admit Provider DO Ezekiel Mathew Attending Provider [phone] MD Jeana Martini Attending Provider [phone] MD Lawrence Kim Other Provider LUPE Castillo Other Provider [phone] MD Shameka Romero Other Provider [phone] LOLI Franco Primary Care Provider DO Jacob Farfan Emergency Provider DO Ezekiel Mathew Admit Provider [phone] MD Lawrence Kim Other Provider LUPE Castillo [...] Unavailable KALLIE, DR AGUILERA Primary Care Unavailable DALLAS, DR KO Bravo Consulting Unavailable KWADWO .RAFAELA [...] NAGEL Consulting Unavailable LAWRENCE HESTER Consulting Unavailable DARAMOLA, HILARIO Consulting Unavailable ROBB ., YESENIA Consulting Unavailable [...] JONES Attending Unavailable KO CHAVEZ Consulting Unavailable NEFMARISEL SHARP Consulting Unavailable JULIA THOMAS Attending Unavailable MISC, DR AGUILERA Primary Care Unavailable JULIA THOMAS Admitting Unavailable System, Provider Not In Primary Care Provider Un available BREANNA BOLIVAR Consulting Unavailable BRIDGER GARNER Attending Unavailab le BRIDGER GARNER Admitting Unavailab le SYSTEM, PROVIDER NOT IN Primary Care Unavaila ble System, Provider Not In Primary Care Provider Un available [facility] [place] Primary Care Provider [facility] Primary Care Unavailable XIMENA RINCON Attending Unavailable [facility] Primary Care Provider No, Physician Primary Care Provider Unavailtheo e Stephany Pelayo PA-C Primary Care Provider Angeles ELDER, Josephine Unavailable Unavailable Doctor, No Referring Unavailable Doctor, No Primary Care Unavailable Idalia Bruner Attending Unavailable Idalia Bruner Consulting Unavailable Angeles ELDER, Josephine Unavailable Unavailable Cherelle Fierro MD Unavailable Lexy Leach MD Primary Care Provider Cem Mario DO Unavailable [phone] Angeles RN, Josephine Unavailable Unavailable Angeles ELDER, Josephine Unavailable Unavailable Swapnil Hooks Unavailable Unavailable Doles RD, Radha E Unavailable Unavailable JesseeMaicoSwapnil R Unavailable Unavailable [facility] Primary Care Unavailable HARSHAD RIZZO Referring Unavailable STEPHANY PELAYO Primary Care Unavailable HARSHAD RIZZO Referring Unavailable Stephany Pelayo PA-C Primary Care Provider Unavailable Primary Care Provider Unavailabl e Danaelobenito STEVENS, Dominguez Provider Primary Care Provi arlene Jim Velez MD Unavailable [phone] Doctor, No Primary Care Provider Unavailtheo Kuhn CNP Verena Emergency Provider Doctor, No Consulting Unavailable Doctor, No Primary Care Unavailable Verena Kuhn Attending Unavailable Stephany Pelayo PA-C Primary Care Provider [phone] CARISA STILES Referring Unavailable ALICE, LARISSA Admitting Unavailable MAYE ORTIZ Attending Unavailable JUAN F NAVARRO Referring Unavailable BRO, SAMORLY Referring Unavailable BRO, SAMAR Referring Unavailable ALIELISABETH Referring Unavailable NAZZAL, NINAIER Referring Unavailable Cem Mario DO Unavailable Unavailable JESSICA ROMEO Attending Unavailable STEPHANY PELAYO Referring Unavailable LEXY LEACH Primary Care Unavailable STEPHANY PELAYO Primary Care Unavailable STEFANIE JORGENSEN Attending Unavaila STEPHANY Kowalski Primary Care Unavailable AMANDA GREENFIELD Attending Unavailable STEPHANY PELAYO Primary Care Unavailable LAWSONJUWAN ALI Admitting Unavailable [facility] Consulting Unavai lable AHRUTHY SMITH Attending Unavailable SHAMEKA CASTILLO Consulting Unavailable KAMILLEMALCOLMHIR Attending Unavailable STEPHANY PELAYO Primary Care Unavailable SHAMEKA CASTILLO Consulting Unavailable HARSHAD RIZZO Admitting Unavailable [facility] Consulting Unavai lable JUDY, SILESHI ADMASSU Admitting Unavailab STEPHANY Graham Primary Care Unavailable [facility] Consulting Unavai lable HARSHAD RIZZO Attending Unavailable FLOYD CASTILLO Consulting Unavailable STEPHANY PELAOY Primary Care Unavailable AGAPITO SCHULER Attending Unavailab [...] Provider Radha Dias DO Primary Care Provider [phone] Unavailable Primary Care Provider UnavailVANESSA Nielsen Admitting Unavailable DIAB, YARELIS AHMAD Referring Unavailable DIASRADHA Farrell Primary Care Unavailable BLAIRE FREITAS Consulting Unavailable ELDA AGUIRRE Attending Unavailable GAVIN, ESVIN Consulting Unavailable NOLIANNE FERNANDEZ Consulting Unavailable RADHA DIAS Referring Unavailable RADHA DIAS Primary Care Unavailable Ben Horn DO Attending Provider Ben Horn Attending Unavailable Ben Horn Admitting Unavailable ALAHMAD, AURA Attending Unavailable ALAHMAD, SHAINAA Admitting Unavailable ALAHMAD, AURA Attending Unavailable ALAHMAD, ALAA Admitting Unavailable SOTO BOX Attending Unavailable SERGIO RESENDEZ Attending Unavailable KJ DUDLEY Attending Unavailable KJ DUDLEY Admitting Unavailable Andrés Lopez DO Primary Care Provider Andrés Lopez DO Attending Provider System, Provider Not In Primary Care Provider Un available Mary Law Attending Unavailable KJ DUDLEY Admitting Unavailable DIALKJ Lozada Attending Unavailable STEPHANY PELAYO Attending Unavailable STEPHANY PELAYO Primary Care Unavailable JIM VELEZ Attending STEPHANY Seth Primary Care Unavailable JIM VELEZ Attending STEPHANY Seth Referring Unavailable STEPHANY PELAYO Primary Care Unavailable SYSTEM, PROVIDER NOT IN Primary Care UnavailMIHAI Rodríguez Attending Unavailab STEPHANY Graham Primary Care Unavailable STEPHANY PELAYO Attending Unavailable STEPHANY PELAYO Primary Care Unavailable MIHAI ELIZALDE Attending Unavailab STEPHANY Graham Attending Unavailable STEPHANY PELAYO Primary Care Unavailable STEPHANY PELAYO Attending Unavailable STEPHANY PELAYO Primary Care Unavailable STEPHANY PELAYO Attending Unavailable JIM VELEZ Attending STEPHANY Seth Primary Care Unavailable STEPHANY PELAYO Primary Care Unavailable SAHARA SANCHEZ Attending Unavailable RAUL KUMAR Attending Unavail able MIHAI ELIZALDE Referring Unavailab le MIHAI ELIZALDE Admitting Unavailab le SYSTEM, PROVIDER NOT IN Primary Care Unavaillela Velez MD, Jim Rivera Unavailable [phone] Andrés Lopez DO Primary Care Provider Andrés Lopez DO Attending Provider Vivien Arceo Attending Provider Unavailable Allergies Allergy ClassificationReported Allergen(s)Allergy TypeDate of OnsetReaction(s) Facility (20 sources)codeine; Translations: [codeine]Propensity to adverse reactions to mqgf32-08-1222Fbjvdobr (disorder), hives, Other (See Comments)[facility] Work Phone: comment on above:hiveshives (20 sources)ketorolac; Translations: [ketorolac]Propensity to adverse reactions to xiuu83-91-2637Wlykg, Other (See Comments), Rash, GI Intolerance, Vomiting (disorder)[facility] Work Phone: comment on above:hiveshives (20 sources)Latex; Translations: [LATEX]Propensity to adverse reactions to drug 50-63-3926UgzulgdgzjAgouZinlbw Work Phone: (20 sources)traMADol; Translations: [tramadol]Propensity to adverse reactions to yimx64-18-3511Cadjj, Rash, Other (See Comments), GI Intolerance, Vomiting (disorder), Seizures, UnknownOhioHealth Work Phone: comment on above:seizuresseizures (20 sources)PROPOXYPHENE N-ACETAMINOPHEN; Translations: [PROPOXYPHENE N-ACETAMINOPHEN]Propensity to adverse reactions to zeny87-27-7595HV Intolerance, VomitingOhioHealth Work Phone: (1 source)Acetaminophen / PropoxypheneDrug AllergyNiobrara [facility] Rep[facility] (20 sources)Adhesive agent; Translations: [ADHESIVE]Drug allergy (disorder) 44-88-4718NnsvxpmXeeqjouoNiobrara Health and [facility] Repository (1 source)CodeineDrug AllergyNiobrara Health and [facility] Rep[facility] (10 sources)Ketorolac; Translations: [Toradol]Drug Ohrkopp51-53-2798 hives/seizuresNiobrara Health and [facility] Rep[facility] (4 sources)LatexDrug allergy (disorder)34-24-8546QqzgyczhNiobrara Health and [facility] Repository (4 sources)traMADolDrug Wsknryo04-39-2809UuwsblmuNiobrara Health and [facility] Rep[facility] (20 sources)Vancomycin; Translations: [VANCOMYCIN]Drug Sxcdtyg30-82-6221Ybojfii Reaction, Unknown Reaction, [facility] Repository Comment on above: shuts down my kidneys . (3 sources)IV Dye, Iodine ContainingDrug allergy (disorder)30-76-7876NldytnhhNiobrara Health and [facility] Rep[facility] (11 sources)Adhesive Tape; Translations: [adhesive tape]Allergy to Substance 61-35-9520AvnrcVmaTrumbull Regional Medical Center Repository (20 sources)Ibuprofen; Translations: [ibuprofen]Drug Rfchyye97-32-5561Kyary (See Comments), Renal Failure, [facility] CtrComment on above: shuts down my kidneys . (20 sources)Propoxyphene; Translations: [PROPOXYPHENE]Drug Flbaowk82-42-7564JB Intolerance, Nausea And VomitingPromedica Flower [facility] Ctr (17 sources)Iodinated Contrast Media; Translations: [Iodinated Contrast Media] Allergy to Adeazzzpf38-94-8379Yogep, [facility] Comment on above: shuts down my kidneys . (3 sources)CodeineDrug Ivxfbyw01-53-5949XnbMercy Health [facility] Repository (1 source)Contrast media; Translations: [IVP DYE]Propensity to adverse reactions (disorder)56-82-6108RedMercy Health Fairfield Hospital Repository (20 sources)fentaNYL; Translations: [FENTANYL]Drug Hunfjpp11-42-4069GdjugOlgMercy Health Fairfield Hospital Repository (1 source)VancomycinDrug Jwbvtwp55-08-4061AcnMercy Health Fairfield Hospital Repository (9 sources)DARVOCET-N 100; Translations: [Darvocet-N 100]Drug allergy (disorder) 56-23-5314ernqsJqsMercy Health Fairfield Hospital Repository (20 sources)fentaNYL; Translations: [fentanyl]Drug Pzqhvzn80-89-6290Mbort Failure, GI intoleranceOhioHealth (20 sources)NSAIDs; Translations: [NSAIDS (NON-STEROIDAL ANTI-INFLAMMATORY DRUG)]Propensity to adverse reactions to xrtl60-74-0754KghhVfvbra (20 sources)Vancomycin; Translations: [vancomycin]Drug Yxgfqkk54-25-1238Ndssn (See Comments), hivesOhioHealth (20 sources)Ct: Iodinated Contrast- Oral And Iv Dye; Translations: [CT: IODINATED CONTRAST- ORAL AND IV DYE]Propensity to adverse reactions to drug 18-29-7558Trinv (See Comments)[facility] (20 sources)acetaminophen / propoxyphene; Translations: [acetaminophen-propoxyphene]Drug Dfdxmbu97-63-8034Zbpkbaao (disorder), Nausea and VomitingUniversity Hospitals [facility] (20 sources)Contrast media; Translations: [Contrast Dye]Drug allergyRenal failure syndrome (disorder)[facility] (20 sources)insect stings; Translations: [insect stings]Allergy to substance swellingUniversity Hospitals Samaritan Medical Center (20 sources)opsite; Translations: [opsite]Allergy to substanceredness,blisters [facility] (7 sources)Tape 5Propensity to adverse reactions to substanceEruption of skin (disorder)[facility] CenterComment on above:blisters (20 sources)Tape 2Propensity to adverse reactions to substanceEruption of skin (disorder)[facility] Medical CenterComment on above:blistersblisters (5 sources)FENTENOLPropensity to adverse elpgxhcju44-40-2203Rvgwjqw, Unknown ReactionMercy Health St. [facility] (5 sources)adhesive tape, iv dye, latexPropensity to adverse tutmnqmaq20-21-[address] [facility] (1 source)Tape 4Propensity to adverse reactions to substanceEruption of skin (disorder)[facility] Comment on above:blisters (2 sources)KetorolacDrug Lzsszwl19-22-8647Tincm (See Comments)[facility] Work Phone: (20 sources)LORazepam; Translations: [LORAZEPAM]Drug Rmxfplo74-46-9491 Hallucinations, Other (See Comments)[facility] (20 sources)Iodides; Translations: [IODIDES]Propensity to adverse reactions to zguk58-68-0199Ujtti (See Comments)[facility] (20 sources)linezolid; Translations: [linezolid]Drug Bkbpdha98-14-9758Zukabc and vomiting (disorder), Nausea And Vomiting, GI Intolerance, Renal Failure [facility] (4 sources)dextrose 5 % in water; Translations: [dextrose 5 % in water] Propensity to adverse -09-4811DiqqaopsXrqjlczuk Regional Medical Center (1 source)VancomycinDrug AllergyhiAtmospheirPostRocket Tripc[facility] Other (1 source)linezolidDrug Bjyfrbk54-97-3530AktPremier Health Repository (20 sources)Adhesive agentPropensity to adverse reactions to jgia18-12-0099 ItchingOhioHealth Work Phone: (2 sources)Adhesive agentDrug allergy (disorder)75-98-5531PjuwAultman [facility] Repository (2 sources)CodeineDrug Deejyyt88-40-8316Qexk [facility] Repository (2 sources)fentaNYLDrug Ntvszkd10-76-3781Nncv [facility] Repository (2 sources)fosphenytoinDrug Kwpfjbp18-71-4982Fzvh [facility] Repository (2 sources)KetorolacDrug Xhscyqw52-18-5926Ltjx [facility] Repository (2 sources)LatexDrug allergy (disorder)59-73-8471VcvwAultman Alliance [facility] Hospital Repository (3 sources)PropoxypheneDrug Axvtius12-88-5378HyqkgtlCdsy [facility] Repository (3 sources)traMADolDrug Lhaqsxa64-31-0890AixosqvDdzm [facility] Repository (2 sources)VancomycinDrug Anptbxi03-76-4228Besf [facility] Repository (3 sources)ibuproxamDrug allergy (disorder)95-38-8277MkelAultman Alliance Community Hospital Repository (3 sources)bug bites; Translations: [bug bites]Propensity to adverse reactions (disorder)58-51-6964RpjhedaWvxpCleveland Clinic [facility] Repository (20 sources)Prochlorperazine; Translations: [PROCHLORPERAZINE]Drug Allergy 72-94-1256Twfgg (See Comments)[facility] (7 sources)Ketorolac trometamolPropensity to adverse reactions to egre57-80-8749 PalpitationsKnox Community Hospital (9 sources)LatexPropensity to adverse reactions to ykdv40-94-8282Beupkwembv, Hives, RashKnox Community Hospital (9 sources)Non-steroidal anti-inflammatory agentPropensity to adverse reactions to kiqe13-20-3365YVFKnox Community Hospital (3 sources)*Adhesive TapePropensity to adverse qwglhxiwg05-90-7950MPXKnox Community Hospital Work Phone: (3 sources)Codeine And RelatedPropensity to adverse reactions to ccez81-69-7940 Aggressive BehaviorKnox Community Hospital (3 sources)Dye Penitent[facility] Red 3 (Erythrosine)Propensity to adverse reactions to drug 39-64-5458WGLKnox Community Hospital (8 sources)LorazepamPropensity to adverse reactions to sthb31-75-5852Pagti Failure, HallucinationsKnox Community Hospital (6 sources)Morphine And CodeineDrug Ymcypyjhrmn46-05-5564Yorgc, Rash, GI intoleranceNOMS Healthcare (7 sources)Adhesive agentAllergy to dgdqdyluh76-76-0507CcndlhpDbrrOycxdz Work Phone: (1 source)fosphenytoinDrug Qfmztud82-05-8903BsyyrovWrpk [facility] Work Phone: (4 sources)Acetaminophen; Translations: [ACETAMINOPHEN]Drug Hznyqff46-11-1451 hivesUnMercy Health [facility]iance Hospital Repository (1 source)Morphine; Translations: [MORPHINE]Drug Bwewyxi31-75-7013XgcnvpetuiMercy Health Defiance Hospital Repository (5 sources)ADHESIVE TAPE-SILICONES; Translations: [ADHESIVE TAPE-SILICONES] Propensity to adverse reactions to drug (disorder)46-05-9349ObpffmuznhMercy Health Defiance Hospital Repository (4 sources)Contrast media; Translations: [DYE]Propensity to adverse reactions to uhgl84-98-5847CmiOjsjrd [employer] [facility] (4 sources)Adhesive Tape; Translations: [Tape]Propensity to adverse reactions (disorder)[facility] Repository (4 sources)traMADol; Translations: [Ultram]Drug AllergyFisher [facility] Repository Medications Current Medications MedicationDrug Class(es)DatesSig (Normalized)Sig (Original)acetaminophen 325 mg / oxyCODONE hydrochloride 7.5 mg oral tablet (20 sources)Opioid AgonistStart: 02-23-2025 End: 03-34-6905ojnw 1 tablet by mouth three times daily as needed for pain oxyCODONE-acetaminophen (PERCOCET) 7.5-325 mg per tablet Indications: Lumbar stenosis with neurogenic claudication Take 1 (one) tablet by mouth 3 (three) times a day as needed for pain . 90 tablet 03/21/2025 04/20/2025 ActiveStart: 53-11-3328zaqu 1 tablet by mouth every eight hours as neededOxycodone- Acetaminophen (Percocet) 5-325 mg tablet Active 1 TAB PO Every 8 hours as needed 0 February 19, 2025 11:00pm Complies with drug therapyStart: 12-03-2024 End: tablet, oral, Every 8 hours PRN, severe pain - pain scale 7-10, Starting on 12/03/24 at 0253, Look-alike/sound-alike medication - verify indication for use., Indications: painStart: 11-21-2024 End: 93-39-0383rmjn 1 tablet by mouth three times daily as needed for pain oxyCODONE-acetaminophen (PERCOCET) 5-325 mg per tablet Indications: Chronic pain syndrome Take 1 (one) tablet by mouth 3 (three) times a day as needed for pain (Days supply per fill: 30) Start: 12/22/24. 90 tablet 12/22/2024 03/16/2025 Discontinued (Dose adjustment)Start: 10-23-2024 End: 48-23-5639xegg 1 tablet by mouth three times daily as needed for pain oxyCODONE-acetaminophen (PERCOCET) 5-325 mg per tablet Indications: Chronic pain syndrome Take 1 (one) tablet by mouth 3 (three) times a day as needed for pain (Days supply per fill: 14) Start: 10/23/24. 42 tablet 10/23/2024 10/10/2024 Discontinued (Reorder (Suppress CancelRx Message to Pharmacy))Start: 10-23-2024 End: 00-39-3363nzjm 1 tablet by mouth three times daily as needed for pain oxyCODONE-acetaminophen (PERCOCET) 5-325 mg per tablet Indications: Chronic pain syndrome Take 1 (one) tablet by mouth 3 (three) times a day as needed for pain (Days supply per fill: 14) Start: 10/23/24. 42 tablet 10/23/2024 10/10/2024 Discontinued (Reorder (Suppress CancelRx Message to Pharmacy))Start: 10-11-2024 End: 88-91-9680zyuf 1 tablet by mouth three times daily as needed for pain oxyCODONE-acetaminophen (PERCOCET) 5-325 mg per tablet Indications: Chronic pain syndrome Take 1 (one) tablet by mouth 3 (three) times a day as needed for pain (Days supply per fill: 30) . 90 tablet 10/11/2024 11/21/2024 Discontinued (Reorder (Suppress CancelRx Message to Pharmacy))Start: 09-23-2024 End: 71-26-5397mcil 1 tablet by mouth three times daily as needed for pain oxyCODONE-acetaminophen (PERCOCET) 5-325 mg per tablet Indications: Chronic pain syndrome Take 1 (one) tablet by mouth 3 (three) times a day as needed for pain (Days supply per fill: 14) . 42 tablet 09/23/2024 10/06/2024 Discontinued (Reorder (Suppress CancelRx Message to Pharmacy))Start: 61-73-6894Xeybkzcbt- Acetaminophen 5-325 mg tablet Active TAB TABLET August 29, 2024 12:00amStart: 07-14-2024 End: 71-62-6914upmo 1 tablet by mouth twice daily as needed for painoxyCODONE- acetaminophen (PERCOCET) 5-325 mg per tablet Indications: Chronic pain syndrome Take 1 (one) tablet by mouth 2 (two) times a day as needed for pain . 60 tablet 08/19/2024 03/16/2025 Discontinued (Dose adjustment)Start: 06-12-2024 End: 46-45-6346quqOGKCUQ-acetaminophen (PERCOCET) 5-325 mg per tablet Indications: Chronic [...] 07/12/2024 Discontinued (Reorder (Suppress CancelRx Message to Pharmacy))Start: 04-12-2024 End: 95-32-7776xfzq 1 tablet by mouth every six hours as needed for pain oxyCODONE-acetaminophen (PERCOCET) 5-325 mg per tablet Indications: Chronic pain syndrome Take 1 (one) tablet by mouth every 6 (six) hours as needed for pain (Days supply per fill: 30) . 15 tablet 04/12/2024 09/23/2024 Discontinued (Reorder (Suppress CancelRx Message to Pharmacy))Start: 04-08-2024 End: 86-85-5011iqyv 1 tablet by mouth every four hours as needed for pain oxyCODONE-acetaminophen (PERCOCET) 5-325 mg per tablet Indications: Chronic pain syndrome Take 1 (one) tablet by mouth every 4 (four) hours as needed for pain (Days supply per fill: 10) MAX 6/DAY FORACUTE POST-OP PAIN . 180 tablet 05/13/2024 06/10/2024 Discontinued (Reorder (Suppress CancelRx Message to Pharmacy))Start: 03-24-2024 End: 06-56-8536omfx 1 tablet by mouth once daily as needed for painoxyCODONE- acetaminophen (PERCOCET) 5-325 mg per tablet Indications: Chronic pain syndrome Take 1 (one) tablet by mouth nightly as needed for pain (Days supply per fill: 30) . 30 tablet 03/24/2024 04/23/2024 ActiveStart: 03-24-2024 End: 56-41-4634caru 1 tablet by mouth every four hours as neededStart: 02-20-2024 End: 13-29-0068Rwfle: 01-12-2024 End: 61-43-2914qwve 1 tablet by mouth every six hours as needed1 tablet, Oral, Every 6 hours PRN, moderate to severe pain, Starting on Thu01/12/24 at 1823 Start: 71-53-6112atlj 1 tablet by mouth once1 tablet, Oral, Once, On Thu01/12/24 at 1540, For 1 doseStart: 12-24-2023 End: 29-94-3496dbpj 1 tablet by mouth once daily as needed for painoxyCODONE- acetaminophen (PERCOCET) 5-325 mg per tablet Indications: Chronic pain syndrome Take 1 (one) tablet by mouth nightly as needed for pain (Days supply per fill: 30) . 30 tablet 02/20/2024 03/22/2024 Discontinued (Reorder (Suppress CancelRx Message to Pharmacy))Start: 12-16-2023 End: 27-30-6611nlya 1 tablet by mouth once daily as needed for painoxyCODONE- acetaminophen (PERCOCET) 5-325 mg per tablet Indications: Chronic pain syndrome Take 1 (one) tablet by mouth nightly as needed for pain (Days supply per fill: 30) . 30 tablet 12/16/2023 12/21/2023 Discontinued (Reorder (Suppress CancelRx Message to Pharmacy))Start: 10-06-2022 End: 63-26-5461igcZBWOXH-acetaminophen (PERCOCET) 5-325 mg per tabletStart: 06-05-2020 End: 29-95-7722ihpf 1 tablet by mouth every six hours as needed for pain, then take 5 tablets by mouth as needed for painoxyCODONE-acetaminophen (PERCOCET) 5- 325 mg per tablet Indications: Diabetic infection of left foot(HCC) , Abscess of chin Take 1 (one) tablet by mouth every 6 (six) hours as needed for pain (Days supply per fill: 5) . 20 tablet 0 06/05/2020 06/10/2020 ActiveStart: 02-08-2015 End: 62-61-1826qmng 1 tablet by mouth twice dailyoxyCODONE-acetaminophen (PERCOCET) 5-325 mg per tablet Take 1 tablet by mouth 2 (two) times a day 0 02/08/2015 06/26/2017 DiscontinuedStart: 07-04-2014 End: 41-75-0174jgcp 1 tablet by mouth twice dailyOxycodone-Acetaminophen 1 EACH tablet Discontinued 1 TAB PO TWO TIMES DAILY July 04, 2014 1:00am July 06, 2014 1:[id number] 200 actuat albuterol 0.09 mg/actuat metered dose inhaler (20 sources)beta2-Adrenergic AgonistStart: 16-09-4010fchc 1 puff(s) by inhalation every four to six hours as neededAlbuterol Sulfate (Ventolin Hfa) 90 mcg/actuation HFA aerosol inhaler Active 2 PUFF INHALATION EVERY 4-6 HOURS as needed February 19, 2025 11:00pm Complies with drug therapyStart: 08-29-2024 Albuterol Sulfate 2.5 mg /3 mL (0.083 %) solution for nebulization Active MG August 29, 2024 12:00amStart: 04-27-2024 End: 88-77-6620zeao 2.5 mg by inhalation every six hours as needed for wheezing Start: 03-25-2024 End: 76-58-4790zfdn 2.5 mg by inhalation every six hours as needed for wheezing Start: 12-10-2023 End: 76-63-4784nqdb 2.5 mg by inhalation every six hours as needed for wheezing and chronic obstructive pulmonary disease and chronic obstructive pulmonary diseasealbuterol (PROVENTIL) 2.5 mg /3 mL (0.083 %) nebulizer solution Indications: Chronic obstructive pulmonary disease, unspecified COPD type (HCC) Take 3 mL (2.5 mg total) by nebulization every 6 (six) hours as needed for wheezing or shortness of breath . 75 mL 3 08/02/2024 ActiveStart: 12-10-2023 End: 48-40-1955wbeb 2.5 mg by inhalation every six hours as needed for wheezing Start: 12-01-2023 End: 66-50-4349rrsa 1 puff(s) by inhalation every four to six hours as needed for wheezingalbuterol 90 mcg/actuation inhaler Indications: Chronic obstructive pulmonary disease, unspecified COPD type (HCC) Inhale 1 (one) puff every 4 to 6 hours as needed for shortness of breath or wheezing. 18 g 3 08/02/2024 Active Start: 50-36-3955Dujiq: 03-31-2023 End: 83-53-6855zxbl 1 puff(s) by inhalation every four to six hours as needed for wheezingalbuterol 90 mcg/actuation inhaler Indications: Chronic obstructive pulmonary disease, unspecified COPD type (HCC) Inhale 1 (one) puff every 4 to 6 hours as needed for shortness of breath or wheezing. 03/31/2023 12/01/2023 Discontinued (Reorder (Suppress CancelRx Message to Pharmacy))Start: 09-12-2022 take 1 puff(s) by inhalation every six hoursAlbuterol Sulfate (Ventolin Hfa) 90 mcg/actuation HFA aerosol inhaler Active 1 PUFF INHALATION Q6H September 11, 2022 11:00pm Complies with drug therapyStart: 43-23-2068Rbfpsvbi HFA 108 (90 Base) MCG/ACT inhaler 08/08/2022 ActiveStart: 16-44-8866bbkr 1 puff(s) by mouth every four hours as neededVentolin HFA 108 (90 Base) MCG/ACT inhaler INHALE 1 PUFF BY MOUTH EVERY 4 HOURS NEEDED 08/08/2022 ActiveStart: 49-04-6061hyhb 2 puff(s) by inhalation four times daily as neededAlbuterol Sulfate HFA 108 (90 Base) MCG/ACT 2 puffs Inhalation qid prn May, ActiveStart: 06-03-2020 End: 93-19-1149wqoa 2.5 mg by inhalation every two hours as needed2.5 mg, Inhalation, Every 2 hour PRN (RT), wheezing, shortness of breath, Starting 06/03/20 at 1750take 1 puff(s) by inhalation every six hours as neededAlbuterol 108 (90 Base) MCG/ACT Aero Soln inhaler Inhale 1 puff every 6 hours as needed for Shortness of Breath. ActiveAlbuterol (Eqv-ProAir HFA) 90 mcg/inh inhalation aerosol (20 sources)Start: 50-62-6132owva 2 puff(s) by inhalation every four hours Albuterol (Eqv-ProAir HFA) 90 mcg/inh inhalation aerosol 2 puff(s), Inhalation, q4hr Cough and Congestion, 18 gm, Refill(s) 1, [facility], 157, cm, 12/08/21 10:05:00 EDT, Height/Length Dosing, 119, kg, 12/08/21 10:05:00 EDT, Weight Dosing Start Date: 12/11/21 Status: OrderedStart: 25-47-3280xhap 2 puff(s) by inhalation every four hoursAlbuterol (Eqv-ProAir HFA) 90 mcg/inh inhalation aerosol 2 puff(s), Inhalation, q4hr Cough and Congestion, 18 gm, Refill(s) 0, [facility], 158, cm, 10/09/21 15:33:00 EDT, Height/Length Dosing, 112.8, kg, 10/09/21 15:33:00 EDT, Weight Dosing Start Date: 10/09/21 Status: Orderedalbuterol 0.833 mg/ml / ipratropium bromide 0.167 mg/ml inhalation solution (7 sources)Anticholinergic, beta2-Adrenergic AgonistStart: 95-72-8145opvl 3 mL by inhalation four times dailyDuoNeb 2.5 mg-0.5 mg/3 mL Soln-Inh 3 mL, Inhalation, QID Shortness of breath or wheezing, 180 mL, Refill(s) 0, [facility], 162, cm, 04/06/22 20:38:00 EST, Height/Length Dosing, 112, kg, 04/06/22 20:38:00 EST, Weight Dosing Start Date: 04/08/22 Status: Orderedaspirin 81 mg delayed release oral tablet (20 sources)Platelet Aggregation Inhibitor, Nonsteroidal Anti-inflammatory Drug Start: 79-78-2456vdnb 1 tablet by mouth once dailyAspirin 81 mg Tablet,Delayed Release (Dr/Ec) Active 81 MG PO Daily 23 06August 21, 2022 11:00pm Complies with drug therapyStart: 07-23-2018 End: 24-20-3662xngq 1 tablet by mouth once dailyAspirin (Aspir-81) 81 mg Tablet,Delayed Release (Dr/Ec) Discontinued 81 MG PO Daily July 23, 2018 12:00am August 20, 2022 2:10amStart: 05-28-2015 End: 94-22-6870mjsktng 81 MG Chew Tab Indications: Atrial fibrillation, unspecified type , SSS (sick sinus syndrome) take 1 tablet by mouth daily.. 30 tablet 01/21/2017 Activeazithromycin 250 mg oral tablet (2 sources)Macrolide AntimicrobialStart: 04-09-2022 End: 53-29-0991mtyh 1 tablet by mouth once dailyazithromycin 250 mg Tab 250 mg = 1 tab(s), Oral, Daily, X 2 day(s), # 2 tab(s), Refills(s) 0, Pharmacy: [facility], 162, cm, 04/06/22 20:38:00 EST, Height/Length Dosing, 112, kg, 04/06/22 20:38:00 EST, Weight Dosing Start Date: 04/09/22 Stop Date: 04/11/22 Status: OrderedStart: 21-11-6115Lmzszhctq 250 MG 2 tablet on the first day, then 1 tablet daily for 4 days Orally Once a day for 5 day(s) May, ActiveBD Insulin Syringe 27G X 1/2 (2 sources)Start: 15-16-7841YA Insulin Syringe 27G X 1/2 as directed three times daily Feb, Activebenzonatate 200 mg oral capsule (7 sources)Non-narcotic AntitussiveStart: 54-29-1326tuvnxtorjdh (Tessalon) 200 MG capsule Take 200 mg by mouth as needed in the morning and 200 mg as needed at noon and 200 mg as needed in the evening for cough. 07/31/2022 ActiveBlood Glucose Monitoring Suppl (OneTouch Verio Flex System) w/Device kit (4 sources)Blood Glucose Monitoring Suppl (OneTouch Verio Flex System) w/Device kit ActiveBlood Pressure Monitor KIT (1 source)Start: 62-67-0809Wdiqd Pressure Monitor KIT 1 kit by Does not apply route daily 1 kit 0 07/02/2015 ActiveBlood Pressure Monitoring (ADULT BLOOD PRESSURE CUFF LG) XX KIT (3 sources)Start: 17-10-7740Eofyq-Glucose Sensor (Dexcom G6 Sensor) device (1 source)Start: 04-81-4022Zlrhp-Glucose Sensor (Dexcom G6 Sensor) device Active EACH MC August 29, 2024 12:00ambrexpiprazole 1 mg oral tablet (20 sources)Atypical AntipsychoticStart: 76-56-8267Axvasqu 1 mg Tab TAKE 1 TABLET DAILY FOR 7 DAYS, THEN 2 DAILY FOR 7 DAYS AND AFTER IF TOLERATED FOR PSYCHOSIS 06/26/2024 Activebrimonidine tartrate 2 mg/ml / brinzolamide 10 mg/ml ophthalmic suspension (2 sources)Carbonic Anhydrase Inhibitor, alpha-Adrenergic AgonistStart: 59-25-4261Qplynxqkzrqo-Brimonidine (Simbrinza) 1-0.2 % Suspension Apply 1 drop to eye. Pt given sample by Jessica Puentes MD 11/09/23 11/09/2023 Active brompheniramine maleate 0.4 mg/ml / dextromethorphan hydrobromide 2 mg/ml / pseudoephedrine hydrochloride 6 mg/ml oral solution (15 sources)alpha-Adrenergic Agonist, Uncompetitive O-jyvjno-J-aspartate Receptor Antagonist, Sigma-1 AgonistStart: 80-45-2986hxdk 5 mL by mouth four times dailyBromfed DM oral syrup 5 mL, Oral, QID for cold symptoms, 200 mL, Refill(s) 0, [facility],158, cm, 10/09/21 15:33:00 EDT, Height/Length Dosing, 112.8, kg, 10/09/21 15:33:00 EDT, Weight Dosing Start Date: 10/09/21 Status: OrderedBrompheniramine / Pseudoephedrine (2 sources)alpha-Adrenergic AgonistStart: 39-42-1236rksi 5 mL by mouth four times dailyBromfed DM oral syrup 5 mL, Oral, QID for cold symptoms, 200 mL, Refill(s) 0, [facility],158, cm, 10/09/21 15:33:00 EDT, Height/Length Dosing, 112.8, kg, 10/09/21 15:33:00 EDT, Weight Dosing Start Date: 10/09/21 Status: Orderedcalcium carbonate 500 mg chewable tablet (2 sources)Start: 67-84-1735shsv 1 tablet by mouth four times dailyCalcium Carbonate (Antacid (Calcium Carbonate)) 200 mg calcium (500 mg) tablet,chewable Active 200 MG PO Four times daily February 19, 2025 11:00pm Complies with drug therapyStart: 03-29-2023 End: 41-10-7877yxqgbxr carbonate (TUMS) chewable tablet 500 mgchlorthalidone 25 mg oral tablet (20 sources)Thiazide-like DiureticStart: 08-29-2022 End: 25-27-5317tlia 1 tablet by mouth once dailyChlorthalidone 25 mg tablet Active 25 MG PO Daily September 11, 2022 11:00pm Complies with drug therapy cholecalciferol 0.025 mg oral tablet (7 sources)Vitamin DStart: 91-19-3718uxwa 1 tablet by mouth once daily cholecalciferol 1000 intl units (25 mcg) oral tablet 25 mcg = 1 tab(s), Oral, Daily, # 30 tab(s), Refills(s) 0, Pharmacy: [facility], 162, cm, 04/06/22 20:38:00 EST, Height/Length Dosing, 112, kg, 04/06/22 20:38:00 EST, Weight Dosing Start Date: 04/08/22 Status: Orderedcitalopram 40 mg oral tablet (20 sources)Serotonin Reuptake InhibitorStart: 05-19-2744lhfj 1 tablet by mouth once daily at bedtimeCitalopram 40 mg tablet Active 40 MG PO Daily at bedtime February 19, 2025 11:00pm Complies withdrug therapyStart: 03-25-2024 End: 71-64-9954Dzyon: 03-22-2024 End: 50-67-1326aork 1 tablet by mouth once dailycitalopram (CELEXA) 40 MG tablet Indications: Bipolar 1 disorder (HCC) Take 1 (one) tablet (40 mg total) by mouth daily . 90 tablet 1 08/02/2024 ActiveStart: 10-07-2023 End: 75-97-2295smbp 1 tablet by mouth once dailycitalopram (CELEXA) 20 MG tablet Take 1 (one) tablet (20 mg total) by mouth daily . 30 tablet 2 02/08/2024 03/22/2024 DiscontinuedStart: 08-03-2023 End: 42-15-3598xlodywyfdg (CELEXA) 10 MG tablet Take half tab daily for 1 week and then 1 tab thereafter . 30 tablet 1 08/03/2023 10/07/2023 Discontinued (Reorder (Suppress CancelRx Message to Pharmacy))clindamycin 300 mg oral capsule (2 sources)Lincosamide AntibacterialStart: 04-04-2024 End: 05-90-7184icrijagoetd 75 mg oral tablet (4 sources)P2Y12 Platelet InhibitorStart: 74-02-8059luct 1 tablet by mouth once dailyClopidogrel 75 mg tablet Active 75 MG PO Daily February 19, 2025 11:00pm Complies with drug therapyStart: 02-18-2023 End: 16-69-8255mjnf 75 mg by mouth once daily75 mg, Oral, Daily, First dose on Thu02/18/23 at 0900Continuous Glucose Sensor (Dexcom G6 Sensor) misc (4 sources)Start: 60-13-9131Ylnliwvjhh Glucose Sensor (Dexcom G6 Sensor) misc USE DIRECTED FOR CONTINUOUS GLUCOSE MONITORING, CHANGE EVERY 10 DAYS 05/04/2024 ActiveContinuous Glucose Sensor (Dexcom G7 Sensor) misc (3 sources)Start: 02-02-2025 End: 16-83-7560Jczhtzegjx Glucose Sensor (Dexcom G7 Sensor) misc Indications: Type 2 diabetes mellitus with hyperglycemia, with long-term current use of insulin (HCC) 1 Bar Every 10 (ten) days 9 each 02/02/2025 05/03/2025 Active Dexcom G6 Wide Area Network Engineer Misc (20 sources)Start: 31-45-9042Xprbeb G6 Wide Area Network Engineer Misc Indications: Type 2 diabetes mellitus with diabetic polyneuropathy, with long-term current use of insulin (HCC) Use as directed for continuous glucose monitoring . 1 each 12/02Start: 60-00-7766Nvkbiv G6 Wide Area Network Engineer Misc Indications: Type 2 diabetes mellitus with diabetic polyneuropathy, with long-term current use of insulin (HCC) Use as directed for continuous glucose monitoring . 1 each 12/03/2023 SuspendedStart: 74-25-7436Dcvyrd G6 Wide Area Network Engineer Misc Indications: Type 2 diabetes mellitus with diabetic polyneuropathy, with long-term current use of insulin (HCC) Use as directed for continuous glucose monitoring . 1 each 12/03/2023 ActiveDexcom G6 Sensor Simran (20 sources)Start: 44-39-3473Oyaiqk G6 Sensor Simran Indications: Type 2 diabetes mellitus with diabetic polyneuropathy, with long-term current use of insulin (HCC) Use as directed for continuous glucose monitoring change every 10days . 3 each 12/03/2023Start: 70-58-6050Vgyqlr G6 Sensor Simran Indications: Type 2 diabetes mellitus with diabetic polyneuropathy, with long-term current use of insulin (HCC) Use as directed for continuous glucose monitoring change every 10 days . 3 each 12/03/2023 SuspendedStart: 32-85-8973Veendw G6 Sensor Simran Indications: Type 2 diabetes mellitus with diabetic polyneuropathy, with long- term current use of insulin (HCC) Use as directed for continuous glucose monitoring change every 10days . 3 each 12/03/2023 ActiveDexcom G6 Transmitter Simran (20 sources)Start: 89-36-7808Xkqbdr G6 Transmitter Simran Indications: Type 2 diabetes mellitus with diabetic polyneuropathy, withlong-term current use of insulin (HCC) Use as directed for continuous glucose monitoring change every 3 months . 1 each 12/03/2023Start: 75-89-3062Quieru G6 Transmitter Simran Indications: Type 2 diabetes mellitus with diabetic polyneuropathy, withlong- term current use of insulin (HCC) Use as directed for continuous glucose monitoring change every 3 months . 1 each 12/03/2023 SuspendedStart: 01-43-4622Aedktg G6 Transmitter Simran Indications: Type 2 diabetes mellitus with diabetic polyneuropathy, withlong-term current use of insulin (HCC) Use as directed for continuous glucose monitoring change every 3 months . 1 each 12/03/2023 ActiveDiabetic supplies (17 sources)Start: 21-95-5216Fnvavoxt supplies Diabetic supplies, Insulin needles and syringes, alcohol swabs- three months supply (3 months). check QIDACHS. No refills. ICD code- E11.9, Print Requisition, Supply Start Date: 01/21 Status: OrdereddiazePAM 5 mg oral tablet (3 sources)BenzodiazepineStart: 88-58-0552gezgdHBW (VALIUM) 5 MG tablet Indications: Claustrophobia 1 tab prior to exam . 1 tablet 5Active Start: 06-20-2015 End: 35-12-6049llch 1 tablet by mouth twice daily as needed for anxietyDiazepam 5 MG tablet Discontinued 5 MG PO TWO TIMES DAILY as needed for Anxiety June 20, 2015 1:00am August 29, 2024 1:56pmStart: 07-04-2014 End: 80-52-8431ydgx 1 tablet by mouth twice dailyDiazepam (Valium) 5 MG tablet Discontinued 1 TAB PO TWO TIMES DAILY July 04, 2014 1:00am July 06, 2014 12:45pmdicyclomine hydrochloride 10 mg oral capsule (5 sources)AnticholinergicStart: 66-13-2064pgip 2 capsules by mouth four times dailyBentyl 10 mg Cap 20 mg = 2 cap(s), Oral, QID, # 20 cap(s), Refills(s) 0, Pharmacy: [id number], 157, cm, 05/04/22 15:39:00 EST, Height/Length Dosing, 130, kg, 05/04/22 15:39:00 EST, Weight Dosing Start Date: 05/04/22 Status: OrderedStart: 01-24-2022 End: 88-68-6430wwbd 1 tablet by mouth three times dailydicyclomine 20 mg Tab 20 mg = 1 tab(s), Oral, TID, X 7 day(s), # 21 tab(s), Refills(s) 0, Pharmacy: [facility], 157, cm, 01/24/22 10:48:00 EDT, Height/Length Dosing, 115, kg, 01/24/22 10:48:00 EDT, Weight Dosing Start Date: 01/24/22 Stop Date: 01/31/22 Status: OrdereddiphenhydrAMINE hydrochloride 25 mg oral tablet (11 sources)Histamine-1 Receptor AntagonistStart: 05-13-2023 End: 39-07-4589qpkd 1 tablet by mouth twice dailydiphenhydrAMINE (BENADRYL) 25 mg tablet Take 1 (one) tablet (25 mg total) by mouth 2 (two) times a day . 60 tablet 0 05/13/2023 06/12/2023 ActiveStart: 02-18-2023 End: 28-07-2955koot 1 tablet by mouth every six hours as neededdiphenhydrAMINE (BENADRYL) tablet 25 mgStart: 38-32-5369oeadgkcqggBQRPH 50 MG Cap Indications: Atrial fibrillation, unspecified type , SSS (sick sinus syndrome) Take 1 hour prior to pacemaker implant 02/23/17- 7am 1 capsule 01/21/2017 Activedocusate sodium 100 mg oral capsule (2 sources)Start: 16-08-1751xtvf 1 capsule by mouth once dailyDocusate Sodium 100 mg capsule Active 100 MG PO Daily February 19, 2025 11:00pm Complies with drug therapyStart: 06-04-2020 End: 70-36-5116llqa 100 mg by mouth once mg, Oral, Daily, First dose on Thu06/04/20 at 0900 [] Hold for loose stools. DO NOT CRUSH OR CHEW. docusate sodium 50 mg / sennosides, mcfp 8.6 mg oral tablet (1 source)Start: 85-39-5176tshb 1 tablet by mouth once daily at bedtime Sennosides-Docusate Sodium (Senna Plus) 8.6-50 mg tablet Active 1 TAB-CAP PO Daily at bedtime February 19, 2025 11:00pm Complies with drug therapy doxycycline hyclate 100 mg oral tablet (20 sources)Tetracycline-class DrugStart: 04-29-2024 End: 52-73-2013pxav 1 tablet by mouth twice dailydoxycycline hyclate (VIBRA- TABS) 100 MG tablet Take 1 (one) tablet (100 mg total) by mouth 2 (two) times a day for 14 days . 28 tablet 04/29/2024 11:47 AM EST 04/29/2024 05/13/2024 Active Start: 04-04-2024 End: 70-54-1711Kulqo: 01-15-2024 End: mg, Oral, 2 times daily, First dose on Thu01/15/24 at 2100, Do not crush or open. Patient to sit up after administration for 30 minutes after taking and take with at least 8 ounces of water Take 1 hour before or 4 hours after metallic cations (e.g.antacids, aluminum,magnesium, calcium, ferrous sulfate), Indication: Diabetic Foot InfectionStart: 01-12-2024 End: mg, Oral, Once, On Thu01/12/24 at 1700, For 1 dose, Do not crush or open. Patient to sit up after administration for 30 minutes after taking and take with at least 8 ounces of water Take 1 hour before or 4 hours after metallic cations (e.g.antacids, aluminum,magnesium, calcium, ferrous sulfate), Indication: Diabetic Foot InfectionStart: 09-19-2023 End: 87-55-2620qpvq 1 capsule by mouth twice dailydoxycycline monohydrate (MONODOX) 100 MG capsule Take 1 (one) capsule (100 mg total) by mouth 2 (two) times a day for 7 days . 14 capsule 0 09/19/2023 09/26/2023 ActiveStart: 11-28-2022 End: 74-22-1175wrhu 1 capsule by mouth twice dailydoxycycline hyclate (VIBRAMYCIN) 100 MG capsule Indications: Diabetic ulcer of right foot associated with type 2 diabetes mellitus, unspecified part of foot, unspecified ulcer stage (HCC) Take 1 (one) capsule (100 mg total) by mouth 2 (two) times a day for 10 days . 20 capsule 01/27/2024 02/06/2024ExpiredStart: 08-20-2022 End: 14-13-2339gwam 1 tablet by mouth twice dailyDoxycycline Hyclate 100 mg tablet Discontinued 100 MG PO Twice daily August 19, 2022 11:00pm 2022 12:34pmStart: 08-19-2022 End: 62-44-4422qsiv 1 tablet by mouth every twelve hoursdoxycycline hyclate 100 mg Tab 100 mg = 1 tab(s), Oral, q12hr, X 10 day(s), # 20 tab(s), Refills(s)0, Pharmacy: [facility], 157, cm, 08/19/22 17:10:00 EDT, Height/Length Dosing, 113, kg, 08/19/22 17:10:00 EDT, Weight Dosing Start Date: 08/19/22 Stop Date: 08/29/22 Status: OrderedStart: 06-06-2020 End: 40-30-0394kefz 1 capsule by mouth twice dailydoxycycline hyclate (VIBRAMYCIN) 100 MG capsule Take 1 (one) capsule (100 mg total) by mouth 2 (two) times a day for 9 days Start: 06/06/20. 18 capsule 0 06/06/2020 06/15/2020 ActiveStart: 06-04-2020 End: 25-70-7899sgcj 100 mg by mouth every twelve owdsa955 mg, Oral, Every 12 hours, First dose on 06/04/20 at 0500 Do not crush or open. Patient to sit up after administration for 30 minutes after taking and take with at least 8 ounces of water Take 1 hour before or 4 hours after metallic cations (e.g.antacids, aluminum,magnesium, calcium,ferrous sulfate) Indication: Skin & Soft Tissue InfectionStart: 06-03-2020 End: 84-95-1958mxqzjozgbrl (VIBRAMYCIN) oral solid 100 mgDrug or medicament (substance) (2 sources)Emgality Pen 120 mg/mL Pen (2 sources)Start: 72-99-9603Bxbmxxzh Pen 120 mg/mL Pen every 30 (thirty) days For headaches, had 04/2020; states need to pick it up tomorrow at pharmacy - uses [facility] in [place] . 0 06/01/2020 Activefluconazole 150 mg oral tablet (7 sources)Azole AntifungalStart: 62-13-1002raxtzmojaxb (Diflucan) 150 MG tablet 09/26/2022 ActiveFreeStyle Test - (2 sources)Start: 39-74-1035Vdkyb: 91-30-0032KvzvOxcad Test - as directed In Vitro QID for 90 days Jun, Active1 ml galcanezumab-gnlm 120 mg/ml auto-injector (10 sources)Start: 03-99-6491Iwhsamxy 120 MG/ML auto-injector 07/18/2022 Active Start: 91-20-3461Sbfnsddf 120 MG/ML auto-injector USE DIRECTED ONCE EVERY MONTH FOR 30 DAYS 07/18/2022 ActiveStart: 06-01-2020 End: 19-60-2312Jhgphuba Pen 120 mg/mL Pen every 30 (thirty) days For headaches, had 04/2020; states need to pick it up tomorrow at pharmacy [employer] uses [facility] in [place] . 0 06/01/2020 02/17/2023 DiscontinuedGLUCOSE MONITOR PRESCRIPTION (3 sources)Start: 78-52-0552VPUIWSM MONITOR PRESCRIPTION Dispense ONE. Patient requires Insulin. 1 Each 1 04/01/2017 ActiveHandicap placard (14 sources)Start: 00-65-6161Dvxsqiwz placard Handicap placard, See Instructions, 1 EA, 0, Dispense handicap placard, good for 5years., Supply Start Date: 09/30/21 Status: OrderedhydrOXYzine pamoate 100 mg oral capsule (20 sources)AntihistamineStart: 47-40-7585bqwm 1 capsule by mouth once daily at bedtime for sleep and anxietyhydrOXYzine (VISTARIL) 100 MG capsule TAKE 1 CAPSULE BY MOUTH EVERYDAY AT BEDTIME FOR SLEEP AND ANXIETY 03/01/2025 Active Start: 31-00-5710lxfv 1 capsule by mouth three times daily as neededhydrOXYzine (VISTARIL) 50 MG capsule Take 1 (one) capsule (50 mg total) by mouth 3 (three) times a day as needed . 06/26/2024 ActiveStart: 01-12-2024 End: 90-10-2274Hijlx: 10-15-2023 End: 00-96-0113rrqr 1 tablet by mouth once dailyhydrOXYzine (ATARAX) 25 MG tablet Take 1 (one) tablet (25 mg total) by mouth daily . 10/15/2023 01/18/2024 Discontinued (Stop Taking at Discharge)Start: 08-03-2023 End: 97-44-6583exrw 1 tablet by mouth twice daily as needed for anxiety hydrOXYzine (ATARAX) 25 MG tablet Take 1 (one) tablet (25 mg total) by mouth 2 (two) times a day asneeded for anxiety . 30 tablet 2 08/03/2023 09/03/2023 ExpiredStart: 02-19-2023 End: 26-52-4244uxotQEXobzs (ATARAX) tablet 25 mgStart: 02-76-4226kmuiVYWnnef pamoate (Vistaril) 25 MG capsule 07/11/2022 ActiveStart: 07-11-2022 End: 28-25-6339nkvj 1 capsule by mouth twice daily as needed for anxiety hydrOXYzine (VISTARIL) 25 MG capsule Take 1 (one) capsule (25 mg total) by mouth 2 (two) times a day as needed for itching or anxiety . 180 capsule 03/25/2024 08/02/2024 Discontinued (Therapy completed)Start: 64-65-5297ubmv 1 capsule by mouth once daily at bedtime as neededhydrOXYzine pamoate (Vistaril) 25 MG capsule TAKE 1 CAPSULE BY MOUTH EVERY DAY AT BEDTIME NEEDEDFOR INSOMNIA 07/11/2022 ActiveStart: 05-31-2020 End: 58-07-6288bpttRDEixuh (ATARAX) 25 MG tablet 1 (one) tablet (25 mg total) as needed States forgets how many times per day can use--as needed per patient . 0 05/31/2020 02/17/2023 Discontinued End: 58-45-9734lrmp 1 capsule by mouth twice dailyhydrOXYzine (VISTARIL) 50 MG capsule Take 1 (one) capsule (50 mg total) by mouth 2 (two) times a day . 01/18/2024 Discontinued (Stop Taking at Discharge)3 ml insulin aspart, human 100 unt/ml pen injector (3 sources)Insulin AnalogStart: 36-30-6022Lwxwfvw Aspart U-100 100 unit/mL (3 mL) insulin pen Active SUBCUT February 19, 2025 11:00pm Complies with drug therapyStart: 01-18-2013 End: 67-08-3237fdzlne 1 [IU] by subcutaneous injection at bedtimeInsulin Aspart U-100 (Novolog U-100 Insulin Aspart) 1000 UNIT/10 ML solution Discontinued 1 UNIT SQBEFORE MEALS AND AT BEDTIME January 18, 2013 12:00am August 29, 2024 1:56pmInsulin Aspart (NOVOLOG SC) Inject into the skin Via insulin pump per patient 0 ActiveInsulin Disposable Pump (Omnipod 5 G7 Intro, Gen 5,) kit (4 sources)Insulin Disposable Pump (Omnipod 5 G7 Intro, Gen 5,) kit Active insulin glargine 100 unt/ml injectable solution (20 sources)Insulin AnalogueStart: 46-40-7116Pbvcorq Glargine (Lantus U-100 Insulin) 100 unit/mL solution Active UNIT SUBCUT February 19, 2025 11:00pm Complies with drug therapyStart: 22-45-5977nnooxh 30 [IU] by subcutaneous injection twice dailyinsulin glargine (LANTUS) 100 unit/mL injection Inject 30 (thirty) Units under the skin 2 (two) times a day . 12/05/2024 ActiveStart: 18-38-2832ytxlez 0.3 mL by subcutaneous injection in the morninginsulin glargine (LANTUS) 100 unit/mL injection Inject 0.3 mL (30 Units total) under the skin in the morning and 0.3 mL (30 Units total) before bedtime. 10 mL 12 12/05/2024 ActiveStart: 12-05-2024 End: Units, subcutaneous, 2 times daily, First dose (after last modification) on Thu12/05/24 at 0900,Look-alike/sound-alike medication - verify indication for use. Prime with 2 units of insulin prior to administration. Basal (long acting) insulin for subcutaneous administration only. Do not mix withany other insulin. Pre-filled pens stable 28 days at room temperature.Start: 12-04-2024 End: Units, subcutaneous, 2 times daily, First dose (after last modification) on Thu12/04/24 at 0900,Look-alike/sound-alike medication - verify indication for use. Prime with 2 units of insulin prior to administration. Basal (long acting) insulin for subcutaneous administration only. Do not mix withany other insulin. Pre-filled pens stable 28 days at room temperature.Start: 12-03-2024 End: Units, subcutaneous, 2 times daily, First dose on Thu12/03/24 at 1700, Look-alike/sound-alike medication - verify indication for use. Prime with 2 units of insulin prior to administration. Basal (long acting) insulin for subcutaneous administration only. Do not mix with any other insulin. Pre-filled pens stable 28 days at room temperature.Start: 04-27-2024 End: Units, Subcutaneous, Nightly, First dose (after last modification) on Thu04/27/24 at 2100, If patient NPO and BG LESS than 100 before procedure, administer half (rounded up to nearest unit) of theglargine insulin (LANTUS) dose; if BG is GREATER than 100, administer the full dose unless otherwise instructed by ordering physician Do not mix with other insulins in a syringe. Do NOT hold basal insulin without notifying physician Start: 04-27-2024 End: Units, Subcutaneous, Nightly, First dose (after last modification) on Thu04/27/24 at 0300, If patient NPO and BG LESS than 100 before procedure, administer half (rounded up to nearest unit) of theglargine insulin (LANTUS) dose; if BG is GREATER than 100, administer the full dose unless otherwise instructed by ordering physician Do not mix with other insulins in a syringe. Do NOT hold basal insulin without notifying physician Start: 03-29-2024 End: Units, Subcutaneous, Nightly, First dose (after last modification) on Thu04/28/24 at 2100, If patient NPO and BG LESS than 100 before procedure, administer half (rounded up to nearest unit) of theglargine insulin (LANTUS) dose; if BG is GREATER than 100, administer the full dose unless otherwise instructed by ordering physician Do not mix with other insulins in a syringe. Do NOT hold basal insulin without notifying physician Start: 03-29-2023 End: 81-18-5173hknocl 25 [IU] by subcutaneous injection once daily25 Units, Subcutaneous, Nightly, First dose on Thu03/29/23 at 2100 Do not mix with other insulins in a syringe. Do NOT hold basal insulin without notifying physician Start: 93-21-3151lywxtem glargine (LANTUS SOLOSTAR/BASAGLAR KWIKPEN) 100 unit/mL (3 mL) InPn Inject 25 (twenty five)Units under the skin nightly . 7.5 mL 0 02/20/2023 ActiveStart: 01-14-2023 End: 33-69-4250tjmbyak glargine (LANTUS SOLOSTAR/BASAGLAR KWIKPEN) 100 unit/mL (3 mL) InPn Inject 25 (twenty five)Units under the skin nightly . 7.5 mL 0 02/20/2023 05/06/2023 Discontinued (Therapy completed)Start: 08-34-9566fgpgpf 48 [IU] by subcutaneous injection at bedtimeinsulin glargine 100 UNIT/ML Solution Pen-injector injection Inject 48 Units under the skin at bedtime. 15 mL 1 04/01/2017 ActiveStart: 54-23-9349ykaiek 55 [IU] by subcutaneous injection twice daily in the evening, then inject 60 [IU] by subcutaneous injection in the morningLANTUS 100 unit/mL injection Inject under the skin 2 (two) times a day 55 units in the evening 60 units in the morning 5 03/29/2015 ActiveStart: 49-32-4257RHSLGR 100 unit/mL injection Inject under the skin 2 (two) times a day 55 units in the evening 60 units in the morning 5 03/29/2015 ActiveStart: 07-04-2014 End: 82-56-5428Rkahpzh Glargine (Lantus Solostar U-100 Insulin) 300 UNIT/3 ML insulin pen Discontinued 55 UNITS SQBEDTIME July 04, 2014 1:00am August 29, 2024 1:56pminsulin glargine (LANTUS) 100 UNIT/ML injection vial Inject 60 Units into the skin 2 times daily 0 Activeinsulin lispro 100 unt/ml injectable solution (20 sources)Insulin AnalogueStart: 21-47-7885Iplsecv Lispro 100 UNIT/ML solution Indications: Type 2 diabetes mellitus with hyperglycemia, with long-term current use of insulin (HCC) Inject 80 Units under the skin continuously WITH INSULIN PUMP. 80 mL 2 03/07/2025 ActiveStart: 12-05-2024 End: 42-54-6977cupbwq 400 mg by subcutaneous injection once daily, then inject 2 [IU] by subcutaneous injection 15minutes after mealtime2-8 Units, subcutaneous, Nightly, First dose (after last [...] 15 minutes before or immediately after a meal.Start: 15-71-4647rcqivv 2-10 [IU] by subcutaneous injection four times daily at mealtimeinsulin lispro (HumaLOG) 100 unit/mL insulin pen Inject 2-10 Units under the skin 4 (four) times a day with meals and nightly. 15 mL 12 12/05/2024 ActiveStart: 12-03-2024 End: 86-17-0242ootqth 400 mg by subcutaneous injection once daily, then inject 2 [IU] by subcutaneous injection 15minutes after mealtime1-4 Units, subcutaneous, Nightly, First dose on 12/03/24 at 2200, Bedtime hyperglycemia dosing. For blood glucose 201-250 mg/dL, give 1 unit. For blood glucose 251-300 mg/dL, give 2 units. For blood glucose 301-350 mg/dL, give 3 units. For blood glucose 351- 400 mg/dL, give 4 units. Give even if NPO or meals skipped. Do NOT give more often than every 4 hours when NPO. Notify prescriber if bloodglucose greater than 400 mg/dL. Look-alike/sound-alike medication - verify indication for use. Prime with 2 units of insulin prior to administration. Prandial/supplemental Insulin. Pre-filled pens stable 28 days at room temperature. Insulin lispro should be administered within 15 minutes before or immediately after a meal. Start: 12-03-2024 End: 80-78-9340xkepfp 400 mg by subcutaneous injection three times [...] hours when NPO. Notify prescriber if blood glucosegreater than 400 mg/dL. Look-alike/sound-alike medication - verify indication for use. Prime with 2units of insulin prior to administration. Prandial/supplemental Insulin. Pre-filled pens stable 28 days at room temperature. Insulin lispro should be administered within 15 minutes before or immediately after a meal.Start: 53-73-0837fhgnvl 10 [IU] by subcutaneous injection once10 Units, Subcutaneous, Once, On Danelle 04/28/24 at 0630, For 1 doseStart: 04-27-2024 End: -30 Units, Subcutaneous, 3 times daily before meals, First dose (after last modification) on 04/27/24 at 0730, * Dose should be given EITHER: No sooner than 10-15 minutes BEFORE a meal ( Specific Prandial Doses or NO Prandial Dose - Corrective Scale ONLY ) - OR - Immediately AFTER meal c ompleted ( Carb Counting Ratio ), Prandial Insulin Dosing Method: NO Prandial Dose - Corrective Scale ONLY, Corrective Insulin Regimen (select desired scale to cover BG result): HIGH Resistance Scale, Dose Reduction Threshold (at meals) for POC Blood Glucose less than or equal to: 80, For Downtime Calculator, use: Insulin SC MEALtime PREprandial Start: 02-18-2023 End: -30 Units, Subcutaneous, 3 times daily before meals, First dose on 02/18/23 at 0730 Continue toadminister as long as tube feedings or parenteral nutrition are running. If tube feed or parenteralnutrition held, hold the base dose but continue to give corrective insulin as ordered. Resume total insulin once tube feedings resumed. Prandial Insulin Dosing Method: NO Prandial Dose - Corrective Scale ONLY Corrective Insulin Regimen (select desired scale to cover BG result): Insulin RESISTANT Scale For Downtime Calculator, use: Insulin SC MEALtime PREprandial Start: 09-13-2022 End: 99-05-0104Qdyuzge Lispro Sliding Scale 0-10 Units, Injection-Insulin, SubCutaneous, Start date 09/13/22 16:30:00 EDT Start Date: 09/13/22 Stop Date: 09/13/22 Status: CompletedStart: 09-13-2022 End: 87-50-5191Apitfly Lispro Sliding Scale 0-10 Units, Injection-Insulin, SubCutaneous, Start date 09/13/22 11:30:00 EDT Start Date: 09/13/22 Stop Date: 09/13/22 Status: CompletedStart: 09-13-2022 End: 49-27-2355Dohzcet Lispro Sliding Scale 0-10 Units, Injection-Insulin, SubCutaneous, Start date 09/13/22 7:30:00 EDT Start Date: 09/13/22 Stop Date: 09/13/22 Status: CompletedStart: 07-18-2022 End: 79-53-0961ntlwrbw lispro (AdmeLOG,HumaLOG) 100 unit/mL injection Indications: Type 2 diabetes mellitus with diabetic polyneuropathy, with long- term current use of insulin (HCC) Inject up to 150 units once daily via pump . 50 mL 5 12/08/2023 ActiveStart: 04-08-2022 End: 52-83-1690Svidecg Lispro Sliding Scale 0-10 Units, Injection-Insulin, SubCutaneous, Start date 04/08/22 12:00:00 EST Start Date: 04/08/22 Stop Date: 04/08/22 Status: CompletedStart: 04-08-2022 End: 92-42-1878Aitnyis Lispro Sliding Scale 0-10 Units, Injection-Insulin, SubCutaneous, Start date 04/08/22 4:00:00 EST Start Date: 04/08/22 Stop Date: 04/08/22 Status: CompletedStart: 04-07-2022 End: 49-24-7166Oucolfq Lispro Sliding Scale 0-10 Units, Injection-Insulin, SubCutaneous, Start date 04/07/22 16:00:00 EST Start Date: 04/07/22 Stop Date: 04/07/22 Status: CompletedStart: 09-07-2018 End: 65-92-5437Uekxpps Lispro 100 UNIT/ML solution 07/18/2022 ActiveStart: 09-07-2018 End: 49-62-4071Fwiwiut Lispro (Admelog U-100 Insulin Lispro) 100 unit/mL Solution Discontinued 0 .ROUTE .COMPLEX Protocol: *If the corrective scale dose has [...] GLUCOSE Instructions: STARTING AT 150MG AT BG CHECKS 2018 11:00pm February 20, 2025 10:58am Patient uses up to 200 Units of Insulin delivered via Omnipod. Please contact the information source for Protocol details.Start: 97-54-9848Qujnvtn Lispro (Admelog U-100 Insulin Lispro) 100 unit/mL Solution Active 0 .ROUTE .COMPLEX September 07, 2018 12:00am Patient uses up to 200 Units of Insulin delivered via Omnipod.Start: 07-23-2018 End: 16-48-4108Qojwbqp Lispro UNIT Subcutaneous Before meals and at bedtime July 23, 2018 DiscontinuedStart: 07-23-2018 End: 72-85-1541uuylru 1 [IU] by subcutaneous injection at bedtimeInsulin Lispro (Admelog Solostar U-100 Insulin) 100 unit/mL Insulin Pen Discontinued UNIT SUBCUT Before meals and at bedtime July 23, 2018 12:00am September 07, 2018 9:01aminject 4 [IU] by subcutaneous injection three times daily before mealtime insulin lispro (HumaLOG) 100 unit/mL injection Inject under the skin 3 (three) times a day before meals Sliding Scale 0 ActiveInsulin Lispro (Admelog U-100 Insulin Lispro) 100 unit/mL Solution (1 source)Start: 11-52-0557Yycyuuz Lispro (Admelog U-100 Insulin Lispro) 100 unit/mL Solution Active 0 .ROUTE .COMPLEX September 07, 2018 12:00am Patient uses up to 200 Units of Insulin delivered via Omnipod.insulin lispro (HUMALOG) 100 UNIT/ML injection vial (1 source)insulin lispro (HUMALOG) 100 UNIT/ML injection vial Inject into the skin 3 times daily (before meals) 8 am, check sugar-by scale, and by amount eaten takes insulin, do the same for lunch, and dinner Does not have scale with her 0 Activeinsulin lispro 100 UNIT/ML vial (3 sources)Start: 70-22-3468vjaxqet lispro 100 UNIT/ML vial - dose 12 units per meal, can do 6 units if having a smaller meal -also dose before meals and at bedtime for BG >150: 151-200 = 2 units 201-250 = 4 units 251-300 =6 units 301- 350 = 8 units 351-400 = 10 units 1 vial 1 04/01/2017 Activeinsulin lispro 100 units/mL injectable solution (20 sources)Start: 66-16-5558wlrzrof lispro 100 units/mL injectable solution SubCutaneous, # 10 mL, Refills(s) 0 Start Date: 09/30/21 Status: OrderedStart: 18-28-9564devlktk lispro 100 units/mL injectable solution 5 unit(s), SubCutaneous, TIDAC, # 10 mL, Refills(s)0 Start Date: 09/30/21 Status: Ordered INSULIN PUMP CARTRIDGE SUBQ (20 sources)INSULIN PUMP CARTRIDGE SUBQ Inject under the skin Use as directed . INSULIN PUMP CARTRIDGE SUBQ Inject under the skin Use as directed . Active INSULIN PUMP CARTRIDGE SUBQ Inject under the skin Use as directed . Suspended Iohexol (3 sources)Radiographic Contrast AgentStart: 06-55-7860Nkwsabi SOLN 3,000 mg Start: 10-07-2022 End: 67-65-2090Tlpthtb SOLN 15,000 mgisopropyl alcohol 0.7 ml/ml medicated pad (20 sources)Start: 12-08-2023 End: 48-36-6801qhwxket swabs PadM Indications: Type 2 diabetes mellitus with diabetic polyneuropathy, with long-term current use of insulin (HCC) Apply 1 (one) Swab. topically 5 (five) times a day Clean area beforeadministering insulin. . 150 each 5 12/08/2023 ActivelamoTRIgine 25 mg oral tablet (20 sources)Mood Stabilizer, Anti-epileptic AgentStart: 02-08-2024 End: 61-70-3796xnzw 1 tablet by mouth twice dailylamoTRIgine (LAMICTAL) 25 MG tablet Take 1 (one) tablet (25 mg total) by mouth 2 (two) times a day . 60 tablet 2 02/08/2024 ActiveStart: 10-07-2023 End: 81-05-9385pfwvDNOnzxt (LAMICTAL) 25 MG tablet Take 1 tab daily for 2 weeks and then twice a day thereafter . 30 tablet 2 10/07/2023 02/08/2024 Discontinued (Reorder (Suppress CancelRx Message to Pharmacy))levETIRAcetam 1000 mg oral tablet (20 sources)Anti-epileptic AgentStart: 02-30-6519Pyixphsmblwjx 1,000 mg tablet Active 1000 MG PO February 19, 2025 11:00pm Complies with drug therapyStart: 12-03-2024 End: 97-06-1222vytx 750 mg by mouth twice clquf721 mg, oral, 2 times daily, First dose on Thu12/03/24 at 0900, Look-alike/sound-alike medication -verify indication for use.Start: 01-14-2024 End: 47-66-9663jsqh 1000 mg by mouth twice daily1,000 mg, Oral, 2 times daily, First dose on Danelle 01/14/24 at 1100Start: 03-29-2023 End: ,000 mg, Oral, 2 times daily, First dose on Thu03/29/23 at 2100 Do Not Crush or Chew if administering orally due to bitter taste. May be crushed if given via tube.Start: 02-18-2023 End: 02-37-4120ffkw 1000 mg by mouth twice daily1,000 mg, Oral, 2 times daily, First dose on Thu02/18/23 at 0900Start: 01-13-2023 End: 88-33-3713ctbp 1 tablet by mouth twice dailylevETIRAcetam (KEPPRA) 1000 MG tablet Take 1 (one) tablet (1,000 mg total) by mouth 2 (two) times aday . 60 tablet 09/22/2024 ActiveStart: 46-06-1741vqbh 1 tablet by mouth twice daily levETIRAcetam 750 mg oral tablet, dispersible 750 mg = 1 tab(s), Oral, BID, Refills(s) 0 Start Date: 09/12/22 Status: OrderedStart: 41-86-4282jjwp 1 tablet by mouth every twelve hourslevETIRAcetam (Keppra) 750 MG tablet Take 1 tablet by mouth every 12 (twelve) hours 08/01/2022 ActiveStart: 88-11-8403kvci 1 tablet by mouth twice dailyKeppra 250 mg Tab 250 mg = 1 tab(s), Oral, BID, # 60 tab(s), Refills(s) 0, Pharmacy: [facility], 157, cm, 02/27/22 12:02:00 EDT, Height/Length Dosing, 113.5, kg, 02/27/22 12:02:00 EDT, Weight Dosing Start Date: 02/27/22 Status: OrderedStart: 95-64-4607kail 1 tablet by mouth twice daily levETIRAcetam 500 mg oral tablet, dispersible 500 mg = 1 tab(s), BID, Refills(s) 0, Seizure Start Date: 03/14/21 Status: OrderedStart: 69-40-7446adiz 1 tablet by mouth once dailylevETIRAcetam 500 mg oral tablet, dispersible 500 mg = 1 tab(s), Daily, Refills(s) 0, Seizure StartDate: 03/14/21 Status: OrderedStart: 08-04-2019 End: 16-15-6293Mxolhxsfzykfi 500 mg tablet Discontinued 750 MG PO Twice daily August 03, 2019 11:00pm February 20, 2025 11:00amStart: 32-05-2454pjpb 750 mg by mouth twice dailyLevetiracetam Active 750 MG PO Twice daily August 04, 2019 12:00amStart: 04-13-2015 End: 34-56-1866qsrr 2 tablets by mouth twice dailyLevetiracetam 500 MG tablet Discontinued 1000 MG PO TWO TIMES DAILY 60 April 13, 2015 1:00am August 29, 2024 1:56pmStart: 03-02-2015 End: 10-92-1399kfkd 500 mg by mouth twice dailyLevetiracetam Active 500 MG PO Twice daily August 04, 2019 12:00amStart: 32-22-7333odkl 1 tablet by mouth twice dailylevETIRAcetam (KEPPRA) 1000 MG tablet Take 1,000 mg by mouth 2 (two) times a day 1 03/02/2015 Activetake 1 tablet by mouth in the morning, then take 1 tablet by mouth at bedtimelevETIRAcetam (KEPPRA) 750 mg tablet Take 1 tablet (750 mg total) by mouth in the morning and 1 tablet (750 mg total) before bedtime. Activelisinopril 40 mg oral tablet (20 sources)Angiotensin Converting Enzyme InhibitorStart: 03-25-2024 End: 55-32-0062Gffeg: 09-03-2023 End: 80-56-0461czjz 1 tablet by mouth once dailylisinopriL (PRINIVIL,ZESTRIL) 30 MG tablet Indications: Primary hypertension Take 1 (one) tablet (30 mg total) by mouth daily . 90 tablet 1 01/27/2024 02/11/2024 Discontinued (Dose adjustment)Start: 03-31-2023 End: 45-47-5616gayn 1 tablet by mouth once dailylisinopriL (PRINIVIL,ZESTRIL) 20 MG tablet Indications: Hypertensive urgency Take 1 (one) tablet (20 mg total) by mouth daily . 90 tablet 1 05/06/2023 09/03/2023 Discontinued (Dose adjustment)Start: 02-18-2023 End: 82-55-7156zero 40 mg by mouth once daily at lunch40 mg, Oral, Daily with lunch, First dose on Thu02/18/23 at 1200Start: 09-15-2022 End: 83-57-9245xyqziuqldu 20 mg Tab 40 mg = 2 tab(s), Tab, Oral, Start date 09/15/22 9:00:00 EDT, 09/12/22 17:37:00 EDT Start Date: 09/15/22 Stop Date: 09/15/22 Status: CompletedStart: 08-20-2022 End: 98-48-9882Wrnqgpnlgh 40 mg tablet Discontinued 40 MG PO As Directed 60 0 August 22, 2022 12:31pm August 6:09am Take half a tablet daily for 2 days then 1 tablet dailyStart: 07-02-2012 End: 20-84-6388rlqf 1 tablet by mouth once dailylisinopril (ZESTRIL) 5 MG PO TABS Indications: HTN (hypertension) , A-fib take 1 Tab by mouth daily. 30 Tab 11 07/02/2012 Activetake 1.5 tablets by mouth once dailyLisinopril 20 MG tablet Take 1.5 tablets by mouth daily. Activelithium carbonate 300 mg oral capsule (11 sources)Start: 70-92-4039ksegvgm 300 MG Cap Indications: Atrial fibrillation, unspecified type , SSS (sick sinus syndrome) 300mg in AM and 600mg QHS 90 capsule 01/21/2017 Activetake 1 tablet by mouth once daily before breakfastlithium carbonate 300 mg tablet Take 300 mg by mouth every morning before breakfast. Activetake 1 capsule by mouth once dailylithium 600 MG capsule Take 600 mg by mouth nightly. Activetake 2 capsules by mouth once dailylithium 300 MG capsule Take 600 mg by mouth Daily with supper 0 Activeloratadine 10 mg oral capsule (20 sources)Start: 14-25-6776owui 1 capsule by mouth once dailyLoratadine (Allergy Relief (Loratadine)) 10 mg capsule Active 10 MG PO Daily February 19, 2025 11:00pm Complies with drug therapyStart: 02-11-2024 End: 08-65-7639qmza 1 tablet by mouth once dailyloratadine (CLARITIN) 10 mg tablet Take 1 (one) tablet (10 mg total) by mouth daily . 90 tablet 1 08/02/2024 Activelosartan potassium 25 mg oral tablet (20 sources)Angiotensin 2 Receptor BlockerStart: 09-30-2021 End: 36-15-6239engi 1 tablet by mouth once dailylosartan 25 mg Tab 25 mg = 1 tab(s), Oral, Daily, X 90 day(s), # 90 tab(s), Refills(s) 0, Pharmacy:[facility], 158, cm, 09/30/21 14:00:00 EDT, Height/Length Dosing, 112.8, kg, 09/30/21 14:00:00 EDT, Weight Dosing Start Date: 09/30/21 Stop Date: 12/29/21 Status: OrderedStart: 07-14-2017 End: 53-17-0971vdkh 1 tablet by mouth once dailyLosartan 25 mg tablet Discontinued 25 MG PO Daily July 23, 2018 12:00am March 24, 2019 7:31am meclizine hydrochloride 25 mg oral tablet (20 sources)AntiemeticStart: 64-25-2324cdcs 1 tablet by mouth three times daily as needed for dizzinessmeclizine 25 mg Tab 25 mg = 1 tab(s), Oral, TID, PRN as needed for dizziness, # 30 tab(s), Refills(s) 0, Pharmacy: [facility], 158, cm, 09/30/21 14:00:00 EDT, Height/Length Dosing, 112.8, kg, 09/30/21 14:00:00 EDT, Weight Dosing Start Date: 09/30/21 Status: OrderedStart: 11-14-2020 take 1 tablet by mouth three times daily as needed for dizzinessmeclizine 25 mg Tab 25 mg = 1 tab(s), Oral, TID, PRN as needed for dizziness, # 30 tab(s), Refills(s) 0, Pharmacy: [facility], 157, cm, 11/14/20 15:53:00 EDT, Height/Length Dosing, 117.1, kg, 11/14/20 15:53:00 EDT, Weight Dosing Start Date: 11/14/20 Status: Orderedmeloxicam 15 mg oral tablet (20 sources)Nonsteroidal Anti-inflammatory DrugStart: 09-30-2021 End: 23-45-2324vkms 1 tablet by mouth once dailymeloxicam 15 mg Tab 15 mg = 1 tab(s), Oral, Daily, X 90 day(s), # 90 tab(s), Refills(s) 0, Pharmacy: [facility], 158, cm, 09/30/21 14:00:00 EDT, Height/Length Dosing, 112.8, kg, 09/30/21 14:00:00 EDT, Weight Dosing Start Date: 09/30/21 Stop Date: 12/29/21 Status: OrderedStart: 07-14-2017 End: 02-62-4078qmkf 1 tablet by mouth once daily as needed for painMeloxicam 15 mg Tablet Discontinued 15 MG PO Daily as needed for pain 0 0 January 29, 2019 10:26am March 24, 2019 7:32ammetFORMIN hydrochloride 1000 mg oral tablet (20 sources)BiguanideStart: 03-29-2015 End: 52-83-9023pybo 1 tablet by mouth twice dailyMetformin 1,000 mg tablet Active 1000 MG PO Twice daily July 23, 2018 12:00am Complies with drug therapy Start: 08-22-2012 End: 04-02-8202lkln 2 tablets by mouth twice dailyMetformin 500 MG tablet Discontinued 1000 MG PO TWO TIMES DAILY August 22, 2012 12:00am August 1:56pmtake 1 tablet by mouth twice daily at mealtimemetFORMIN (GLUMETZA) 1000 MG (MOD) 24 hr tablet Take 1,000 mg by mouth 2 (two) times a day with meals. Activemethocarbamol 500 mg oral tablet (1 source)Muscle RelaxantStart: 06-02-2022 End: 70-40-6306imuy 1 tablet by mouth three times dailyRobaxin 500 mg Tab 500 mg = 1 tab(s), Oral, TID, X 3 day(s), # 9 tab(s), Refills(s) 0, Pharmacy: [facility], 157, cm, 06/02/22 15:53:00 EST, Height/Length Dosing, 116.2, kg, 06/02/22 15:53:00 EST, Weight Dosing Start Date: 06/02/22 Stop Date: 06/05/22 Status: Orderedmetoprolol tartrate 25 mg oral tablet (20 sources)beta-Adrenergic BlockerStart: 80-22-0969podh 2 tablets by mouth once dailyMetoprolol Tartrate 25 mg tablet Active 50 MG PO Daily February 20, 2025 11:02am Complies with drug therapyStart: 07-25-7328mnjj 1 tablet by mouth every twenty-four hoursMetoprolol Succinate 50 mg tablet extended release 24 hr Active MG PO August 29, 2024 12:00amStart: 04-27-2024 End: 64-25-6815pebg 25 mg by mouth twice daily25 mg, Oral, 2 times daily, First dose (after last modification) on Thu04/27/24 at 0900Start: 04-01-2024 End: 62-55-8978Bmefw: 01-18-2024 End: 05-30-1222bklt 25 mg by mouth once daily25 mg, Oral, Daily, First dose (after last modification) on Thu01/18/24 at 0900, Hold if sbpStart: 10-13-2023 End: 01-48-6377frfr 1 tablet by mouth once dailymetoprolol succinate (TOPROL-XL) 50 MG 24 hr tablet Indications: Primary hypertension Take 1 (one) tablet (50 mg total) by mouth daily . 90 tablet 1 08/02/2024 ActiveStart: 02-20-2023 End: 13-29-3615inye 1 tablet by mouth once dailymetoprolol succinate (TOPROL-XL) 25 MG 24 hr tablet Indications: Hypertensive urgency Take 1 (one) tablet (25 mg total) by mouth daily . 90 tablet 1 05/06/2023 10/13/2023 Discontinued (Dose adjustment)Start: 02-18-2023 End: 75-52-9872ithl 50 mg by mouth once daily50 mg, Oral, Daily, First dose on Thu02/18/23 at 0900 DO NOT CRUSH OR CHEW.Start: 20-43-6787oldo 1 tablet by mouth in the morningmetoprolol tartrate (Lopressor) 50 MG tablet Take 50 mg by mouth in the morning and 50 mg in the evening. Take with meals. 09/19/2022 Active Start: 09-15-2022 End: 04-81-7379Yivpddhquu tartrate 25 mg Tab 25 mg = 1 tab(s), Tab, Oral, Start date 09/15/22 9:00:00 EDT, 09/12/22 17:37:00 EDT Start Date: 09/15/22 Stop Date: 09/15/22 Status: CompletedStart: 06-03-2020 End: 22-08-4870zzrb 12.5 mg by mouth twice daily12.5 mg, Oral, 2 times daily, First dose on Thu06/03/20 at 2330Start: 01-29-2019 End: 31-80-4159nxhz 1 tablet by mouth once dailyMetoprolol Succinate 50 mg Tablet Extended Release 24 Hr Discontinued 50 MG PO Daily 0 0 January 28, 2019 11:00pm August 20, 2022 2:13amStart: 07-23-2018 End: 87-12-9527kouu 1 tablet by mouth twice dailyMetoprolol Tartrate 25 mg tablet Discontinued 25 MG PO Twice daily September 11, 2022 11:00pm February 20, 2025 11:29amStart: 08-22-2012 End: 65-33-2087Ozovdkcbap Tartrate 25 MG tablet Discontinued 12.5 MG PO TWO TIMES DAILY August 22, 2012 12:00am August 29, 2024 1:56pmmetoprolol tartrate (Lopressor) 25 MG tablet every 12 (twelve) hours Active End: 16-20-0465awza 1 tablet by mouth every twenty-four hoursmetoprolol succinate (TOPROL-XL) 50 MG 24 hr tablet Take by mouth . 0 02/20/2023 Discontinued (Reorder (Suppress CancelRx Message to Pharmacy))take 1 tablet by mouth every twenty-four hoursToprol XL 25 MG 1 tablet Orally Once a day Active take 1 tablet by mouth once dailymetoprolol (LOPRESSOR) 25 MG tablet Take 25 mg by mouth daily 0 Activemiscellaneous medical supply Mis (20 sources)Start: 74-41-3437hdilsmiuurips medical supply Misc 1 each by Miscellaneous route daily . 100 each 2 12/10/2023Start: 34-72-8773setquykyizsyy medical supply [facility] 1 each by Miscellaneous route daily . 100 each 2 12/10/2023 SuspendedStart: 91-97-3466ihpiiqcnrwtzq medical supply [facility] 1 each by Miscellaneous route daily . 100 each 2 12/10/2023 Activenitrofurantoin, macrocrystals 100 mg oral capsule (1 source)Nitrofuran AntibacterialStart: 10-30-2021 End: 58-41-0543xmud 1 capsule by mouth twice daily at mealtimeMacrobid 100 mg Cap 100 mg = 1 cap(s), Oral, BID, with food, X 5 day(s), # 10 cap(s), Refills(s) 0,Pharmacy: [facility], 158, cm, 10/30/21 13:11:00 EDT, Height/Length Dosing, 113.7, kg, 10/30/21 13:11:00 EDT, Weight Dosing Start Date: 10/30/21 Stop Date: 11/04/21 Status: Orderednitrofurantoin, macrocrystals 25 mg / nitrofurantoin, monohydrate 75 mg oral capsule (2 sources)Nitrofuran AntibacterialStart: 06-18-2023 End: 87-08-1718xcgh 1 capsule by mouth twice dailynitrofurantoin, macrocrystal- monohydrate, (MACROBID) 100 MG capsule Take 1 (one) capsule (100 mg total) by mouth 2 (two) times a day for 7 days . 14 capsule 0 06/18/2023 06/25/2023 Active nortriptyline 25 mg oral capsule (20 sources)Tricyclic AntidepressantStart: 65-91-2055ysis 1 capsule by mouth once daily at bedtimeNortriptyline 25 mg capsule Active 25 MG PO Daily at bedtime February 19, 2025 11:00pm Complies with drug therapyStart: 06-22-2023 End: 70-29-9405mzoi 1 capsule by mouth once dailynortriptyline (PAMELOR) 25 MG capsule Indications: Chronic nonintractable headache, unspecified headache type , Insomnia, unspecified type Take 1 (one) capsule (25 mg total) by mouth nightly . 90 capsule 1 08/02/2024 ActiveStart: 07-23-2018 End: 18-42-6004koko 1 capsule by mouth once dailyNortriptyline (Pamelor) 50 mg Capsule Discontinued 50 MG PO Daily July 23, 2018 12:00am September 07, 2018 1:57pmofloxacin 3 mg/ml ophthalmic solution (7 sources)Quinolone AntimicrobialStart: 19-02-6655qdzbxmhyc (Ocuflox) 0.3 % ophthalmic solution 10/15/2022 ActiveStart: 60-54-7477kque 1 drop(s) into the eye(s) four times dailyofloxacin (Ocuflox) 0.3 % ophthalmic solution INSTILL 1 DROP INTO LEFT EYE FOUR TIMES A DAY 10/15/2022 Activeomeprazole 40 mg delayed release oral capsule (20 sources)Proton Pump InhibitorStart: 49-38-0154wsal 1 capsule by mouth once dailyomeprazole (PRILOSEC) 40 MG capsule Take 1 (one) capsule (40 mg total) by mouth daily . 90 capsule 1 07/15/2024 ActiveStart: 09-30-2021 End: 75-61-4536npdj 1 capsule by mouth once dailyomeprazole 40 mg Cap-DR 40 mg = 1 cap(s), Oral, Daily, X 90 day(s), # 90 cap(s), Refills(s) 0, Pharmacy: [facility], 158, cm, 09/30/21 14:00:00 EDT, Height/Length Dosing, 112.8, kg, 09/30/21 14:00:00 EDT, Weight Dosing Start Date: 09/30/21 Stop Date: 12/29/21 Status: OrderedStart: 23-97-3561shho 40 mg by mouth once dailyOmeprazole Magnesium [Prilosec] 40 MG Oral Daily July 23, 2018 ActiveStart: 07-23-2018 End: 77-48-2122dlht 40 mg by mouth once dailyOmeprazole Magnesium (Prilosec) 10 mg Susp,Delayed Release For Recon Discontinued 40 MG PO Daily July 23, 2018 12:00am February 20, 2025 11:03amStart: 34-80-8569elhw 40 mg by mouth twice dailyOmeprazole Magnesium (Prilosec) 10 mg Susp,Delayed Release For Recon Active 40 MG PO Twice daily July 23, 2018 1:00amStart: 08-22-2012 End: 63-27-1167sxey 1 capsule by mouth twice dailyomeprazole (PRILOSEC) 40 MG capsule Take 1 (one) capsule (40 mg total) by mouth 2 (two) times a day. 60 capsule 0 03/30/2023 05/06/2023 Discontinued (Therapy completed)take 2 capsules by mouth once dailyomeprazole (PRILOSEC) [address] Indications: A-fib , Syncope Take 40 mg by mouth daily. Activeomeprazole 40 mg Cap-DR (7 sources)Start: 09-30-2021 End: 66-64-2475heva 1 capsule by mouth once dailyomeprazole 40 mg Cap-DR 40 mg = 1 cap(s), Oral, Daily, X 90 day(s), # 90 cap(s), Refills(s) 0, Pharmacy: [facility], 158, cm, 09/30/21 14:00:00 EDT, Height/Length Dosing, 112.8, kg, 09/30/21 14:00:00 EDT, Weight Dosing Start Date: 09/30/21 Stop Date: 12/29/21 Status: OrderedStart: 03-28-6150buvceosrry 40 mg Cap-DR 40 mg = 1 cap(s), Oral, Daily, Control of stomach acid Start Date: 10/20/17 Status: OrderedOmnipod 5 G6 Pods, Gen 5, Crtg (20 sources)Start: 58-91-1230Eklrjod 5 G6 Pods, Gen 5, Crtg 01/29/2024Start: 40-75-2918Obwpzth 5 G6 Pods, Gen 5, Crtg 01/29/2024 SuspendedStart: 01-29-2024 Omnipod 5 G6 Pods, Gen 5, Crtg 01/29/2024 ActiveOmnipod 5 G6-G7 Pods, Gen 5, Crtg (20 sources)Start: 59-67-4277Xbrcbis 5 G6-G7 Pods, Gen 5, Crtg 06/01/2024 Active Omnipod Insulin Refill Crtg (20 sources)Start: 40-81-7784Cvjhctt Insulin Refill Crtg 04/16/2020Start: 64-04-9666Vistenx Insulin Refill Crtg 04/16/2020 SuspendedStart: 04-16-2020 Omnipod Insulin Refill Crtg 04/16/2020 ActiveStart: 91-33-0223Znjeaug Insulin Refill Crtg24 hr paliperidone 9 mg extended release oral tablet (20 sources)Atypical AntipsychoticStart: 01-36-2016zbty 1 tablet by mouth once dailypaliperidone (INVEGA) 9 MG 24 hr tablet Take 1 (one) tablet (9 mg total) by mouth daily . 03/01/2025 ActiveStart: 69-06-4618zgac 1 tablet by mouth every twenty-four hoursPaliperidone 9 mg tablet extended release 24hr Active 9 MG PO February 19, 2025 11:00pm Complieswith drug therapyStart: 07-27-2024 End: 72-00-2726jphv 1 tablet by mouth once dailypaliperidone (INVEGA) 6 MG 24 hr tablet Take 1 (one) tablet (6 mg total) by mouth daily . 07/27/2024 03/16/2025 Discontinued (Dose adjustment)pantoprazole 40 mg delayed release oral tablet (20 sources)Proton Pump InhibitorStart: 81-78-6951ieza 1 tablet by mouth once Pantoprazole 40 mg tablet,delayed release (DR/EC) Active 40 MG PO Once February 19, 2025 11:00pmComplies with drug therapyStart: 07-31-2023 End: 20-04-1391ttad 1 tablet by mouth once dailypantoprazole (PROTONIX) 40 MG tablet Indications: Gastroesophageal reflux disease, unspecified whether esophagitis present Take 1 (one) tablet (40 mg total) by mouth daily . 90 tablet 1 08/02/2024 ActiveStart: 04-09-2023 End: 79-15-1166qyqc 1 tablet by mouth once dailypantoprazole (PROTONIX) 40 MG tablet Indications: Gastroesophageal reflux disease, unspecified whether esophagitis present Take 1 (one) tablet (40 mg total) by mouth daily . 90 tablet 1 05/15/2023 ActiveStart: 03-30-2023 End: 75-70-0872prmzgxpldhfs (PROTONIX) EC tablet 40 mgStart: 02-18-2023 End: 05-89-9808ypcp 40 mg by mouth once daily before zayvjwlwk38 mg, Oral, Every morning before breakfast, First dose on 02/18/23 at 0730 DO NOT CRUSH OR CHEW.Start: 31-92-0968iugx 1 tablet by mouth once dailypantoprazole 40 mg Oral EC Tab 40 mg = 1 tab(s), Oral, Daily, # 30 tab(s), Refills(s) 0 Start Date: 04/07/22 Status: OrderedStart: 38-41-7408emtc 1 tablet by mouth once daily pantoprazole 40 mg Oral EC Tab 40 mg = 1 tab(s), Oral, Daily, # 30 tab(s), Refills(s) 0 Start Date:04/07/22 Status: OrderedStart: 06-03-2020 End: 06-10-9127dzsr 40 mg by mouth twice daily40 mg, Oral, 2 times daily, First dose on Thu06/03/20 at 2100 DO NOT CRUSH OR CHEW.take 1 dose by mouth once daily before breakfastpantoprazole Sodium 40 MG Pack Take 1 packet by mouth every morning before breakfast. ActivePen Adell 10/07 (2 sources)Start: 35-90-0312Qei Adell 10/07 as directed twice daily Feb, Activepetrolatum 0.57 mg/mg / zinc oxide 0.17 mg/mg paste (20 sources)Start: 38-54-7497jksr oxide-white petrolatum 17-57 % Pste Apply 1 Application topically daily . 113 g 2 08/02/2024 Activepolyethylene glycol 3350 14406 mg powder for oral solution (20 sources)Osmotic LaxativeStart: 67-46-8732Lymglnkbsqgs Glycol 3350 17 gram powder in packet Active GM August 29, 2024 12:00amStart: 55-77-5375skhmbfysxcct glycol (MIRALAX) 17 gram powder Take 17 (seventeen) g by mouth daily as needed (constipation) . 100 packet 1 08/02/2024 ActiveStart: 02-11-2024 End: 14-07-9840jxvevurkhlqn glycol (GLYCOLAX) 17 gram/dose powder Take 17 (seventeen) g by mouth daily . 510 g 2 02/11/2024 03/22/2024 Discontinued (Therapy completed)Start: 10-13-2023 End: 85-10-6648lwfwfbxboqvg glycol (GLYCOLAX) 17 gram/dose powder Take 17 (seventeen) g by mouth daily as needed (constipation) . 238 g 1 02/11/2024 02/11/2024 Discontinued (Duplicate order (Suppress CancelRx Message to Pharmacy))Start: 00-96-6639KybvClc oral powder for reconstitution 17 gram, Oral, Daily, 255 gram, Refill(s) 0, dissolve in water before taking, [facility], 158, cm, 11/04/21 11:29:00 EDT, Height/Length Dosing, 113, kg, 11/04/21 11:29:00 EDT, Weight Dosing Start Date: 11/11/21 Status: OrderedStart: 09-07-2018 End: 32-19-4953Enljnevleyrn Glycol 3350 (Miralax) 17 gram/dose Powder Discontinued 17 GM PO Daily September 06, 201811:00pm March 24, 2019 7:33am prednisoLONE acetate 10 mg/ml ophthalmic suspension (7 sources)CorticosteroidStart: 78-46-0427oxtfnpnaNKXR acetate (Pred-Forte) 1 % ophthalmic suspension 10/15/2022 ActiveStart: 56-41-3828wgfz 1 drop(s) into the eye(s) four times dailyprednisoLONE acetate (Pred-Forte) 1 % ophthalmic suspension INSTILL 1 DROP INTO LEFT EYE FOUR TIMESA DAY 10/15/2022 Active predniSONE 20 mg oral tablet (1 source)Start: 10-09-2021 End: 44-02-0149ndym 3 tablets by mouth once dailypredniSONE 20 mg Tab 60 mg = 3 tab(s), Oral, Daily, X 5 day(s), # 15 tab(s), Refills(s) 0, Pharmacy: [facility], 158, cm, 10/09/21 15:33:00 EDT, Height/Length Dosing, 112.8, kg, 10/09/21 15:33:00 EDT, Weight Dosing Start Date: 10/09/21 Stop Date: 10/14/21 Status: Orderedpregabalin 75 mg oral capsule (20 sources)Start: 32-67-6352zzjo 1 capsule by mouth once dailyPregabalin 75 mg capsule Active 75 MG PO Daily February 19, 2025 11:00pm Complies with drug therapyStart: 12-03-2024 End: 81-05-3978rxaq 100 mg by mouth once mg, oral, Nightly, First dose on Thu12/03/24 at 2200, Look-alike/sound-alike medication. Verifyindication for useStart: 07-14-2024 End: 81-92-7657qglg 1 capsule by mouth twice dailypregabalin (LYRICA) 75 MG capsule Indications: DDD (degenerative disc disease), lumbar , Lumbar radi culopathy Take 1 (one) capsule (75 mg total) by mouth 2 (two) times a day (Days supply per fill: 30) . 60 capsule 03/21/2025 04/20/2025 ActiveStart: 01-13-2024 End: 15-30-5683npof 1 capsule by mouth twice dailypregabalin (LYRICA) 75 MG capsule Indications: DDD (degenerative disc disease), lumbar , Lumbar radi culopathy Take 1 (one) capsule (75 mg total) by mouth 2 (two) times a day (Days supply per fill: 30) Start: 06/12/24. 60 capsule 06/12/2024 07/12/2024 Discontinued (Reorder (Suppress CancelRx Messageto Pharmacy))Start: 01-12-2024 End: 65-69-8810darz 150 mg by mouth once sicvi286 mg, Oral, Nightly, First dose on Thu01/12/24 at 2300Start: 12-08-2023 End: 88-41-8539evse 1 capsule by mouth twice dailypregabalin (LYRICA) 75 MG capsule Indications: DDD (degenerative disc disease), lumbar , Lumbar radi culopathy Take 1 (one) capsule (75 mg total) by mouth 2 (two) times a day (Days supply per fill: 30) . 60 capsule 12/08/2023 01/11/2024 Discontinued (Reorder (Suppress CancelRx Message to Pharmacy))Start: 03-29-2023 End: 00-29-9139hwdh 75 mg by mouth twice daily75 mg, Oral, 2 times daily, First dose on Thu03/29/23 at 2100Start: 02-20-2023 End: 05-75-3056kazs 3 capsules by mouth twice dailypregabalin (LYRICA) 25 MG capsule Indications: Seizure (HCC) Take 3 (three) capsules (75 mg total) by mouth 2 (two) times a day for 10 days . 60 capsule 0 02/20/2023 05/06/2023 Discontinued (Therapy completed)Start: 02-19-2023 End: 88-91-8875mocmfcxhfa (LYRICA) capsule 25 mgStart: 04-08-2022 End: 36-80-3573cmjw 75 mg by mouth twice daily75 mg, Oral, 2 times daily, First dose on Thu02/18/23 at 0400Start: 06-04-2020 End: 01-69-8081afmdydqacf (LYRICA) capsule 150 mgStart: 08-04-2019 End: 22-96-7143tbal 1 capsule by mouth at bedtimePregabalin 150 mg capsule Discontinued 150 MG PO Bedtime August 03, 2019 11:00pm February 20, 2025 11:04amStart: 21-98-4680dlxu 100 mg by mouth at bedtimePregabalin [Lyrica] 100 MG Oral Bedtime 0 January 29, 2019 ActiveStart: 01-29-2019 End: 19-23-4188Nxazijwezj (Lyrica) 300 mg Capsule Discontinued 100 MG PO Bedtime 0 0 January 29, 2019 10:26am August 04, 2019 5:25pm Diabetes mellitus Type 2 diabetes mellitus without complicationsStart: 09-07-2018 End: 16-11-4428buqm 1 capsule by mouth at bedtimePregabalin (Lyrica) 300 mg Capsule Discontinued 300 MG PO Bedtime 0 0 September 09, 2018 11:54am January 29, 2019 10:28am Diabetes mellitus Type 2 diabetes mellitus without complicationsStart: 07-23-2018 End: 90-53-4255bxul 150 mg by mouth once dailyPregabalin 150 MG Oral Daily July 23, 2018 DiscontinuedStart: 07-23-2018 End: 15-77-5151Kevzqgrrxa (Lyrica) 200 mg capsule Discontinued 150 MG PO Daily July 23, 2018 12:00am August 1:58pmStart: 06-15-2015 End: 62-24-2794yhdn 2 capsules by mouth three times dailyPregabalin (Lyrica =) 50 MG capsule Discontinued 100 MG PO THREE TIMES DAILY June 15, 2015 1:00am August 29, 2024 1:56pmtake 1 capsule by mouth at bedtimepregabalin 100 MG Cap Take 100 mg by mouth at bedtime. Activeprenatal vitamin with Ca-Iron-FA 27-1 mg Tab (20 sources)take 1 tablet by mouth once dailyprenatal vitamin with Ca-Iron-FA 27-1 mg Tab Take 1 (one) tablet by mouth daily .take 1 tablet by mouth once dailyprenatal vitamin with Ca-Iron-FA 27-1 mg Tab Take 1 (one) tablet by mouth daily . Suspendedtake 1 tablet by mouth once dailyprenatal vitamin with Ca-Iron-FA 27-1 mg Tab Take 1 (one) tablet by mouth daily . Activepromethazine hydrochloride 25 mg oral tablet (20 sources)PhenothiazineStart: 08-20-2022 End: 92-04-1186oohk 1 tablet by mouth every six hours as needed for nausea Promethazine 25 mg tablet Active 25 MG PO Q6H as needed for Nausea August 19, 2022 11:00pm Complies with drug therapyStart: 72-03-0617Ziyxxjdhqjms Active MG TABLET August 20, 2022 12:00amStart: 59-32-1209lsoa 1 tablet by mouth three times dailypromethazine 25 mg Tab 25 mg = 1 tab(s), Oral, TID, # 15 tab(s), Refills(s) 0, Pharmacy: [facility], 157, cm, 01/24/22 10:48:00 EDT, Height/Length Dosing, 115, kg, 01/24/22 10:48:00 EDT, Weight Dosing Start Date: 01/24/22 Status: OrderedStart: 07-23-2018 End: 75-77-8794xeac 1 tablet by mouth every six hours as needed for nausea Promethazine 25 mg Tablet Discontinued 25 MG PO Every 6 hours as needed for Nausea July 23, 2018 12:00am September 07, 2018 1:59pmpromethazine (Phenergan) 25 MG tablet every 12 (twelve) hours Activesaccharomyces boulardii 250 mg oral capsule (14 sources)Start: 85-17-0117yzic 1 capsule by mouth twice daily at mealtime Saccharomyces Boulardii 250 mg Capsule Active 250 MG PO Twice daily with meals 60 0 August 21, 2022 11:00pm Complies with drug therapy0.25 mg, 0.5 mg dose 1.5 ml semaglutide 1.34 mg/ml pen injector (3 sources)Start: 02-02-2025 End: 19-47-0833ctneyb 0.5 mg by subcutaneous injection every weeksemaglutide (Ozempic, 0.25 or 0.5 MG/DOSE,) 2 MG/1.5ML solution pen-injector Indications: Type 2 diabetes mellitus with hyperglycemia, with long-term current use of insulin (HCC) Inject 0.5 mg under the skin 1 (one) time per week 4.5 mL 1 03/07/2025 08/22/2025 ActiveSharps Container - (2 sources)Start: 06-52-2819Odyxga Container - as directed for insulin pen needles/lancets/syringes as directed QID please fillwith 4 qt or 5 qt container Apr, Activeterconazole 8 mg/ml vaginal cream (7 sources)Azole AntifungalStart: 88-01-8688zygtuambbli (Terazol 3) 0.8 % vaginal cream 09/24/2022 ActiveStart: 33-14-5355jwoidykmgnl (Terazol 3) 0.8 % vaginal cream INSERT ONE APPLICATORFUL VIA VAGINAL ROUTE ONCE DAILY AT BEDTIME FOR 3 DAYS 09/24/2022 Xjunno76 hr timolol 5 mg/ml ophthalmic solution (20 sources)beta-Adrenergic BlockerStart: 12-15-2023 End: 43-33-0466xpzj 1 drop(s) into the eye(s) once dailytimolol (TIMOPTIC) 0.5 % ophthalmic solution Administer 1 (one) drop into the left eye daily . 12/14 ActivetiZANidine 4 mg oral capsule (20 sources)Central alpha-2 Adrenergic AgonistStart: 65-33-1493hygp 1 capsule by mouth once daily at bedtime as neededTizanidine 4 mg capsule Active 4 MG PO Daily at bedtime as needed February 19, 2025 11:00pm Complies with drug therapyStart: 12-03-2024 End: 74-74-0722abmw 4 mg by mouth three times daily4 mg, oral, 3 times daily, First dose on Thu12/03/24 at 0800, Look-alike/sound-alike medication - verify indication for use.Start: 48-57-0354Fugorzmmsr 4 mg tablet Active MG TABLET August 29, 2024 12:00amStart: 07-14-2024 End: 18-69-6933xrqf 2 tablets by mouth once dailytiZANidine (Zanaflex) 4 MG tablet Indications: DDD (degenerative disc disease), lumbar Take 2 tabs p.o. nightly . 60 tablet 3 03/21/2025 ActiveStart: 06-12-2024 End: 65-88-1618ggii 2 tablets by mouth once dailytiZANidine (Zanaflex) 4 MG tablet Indications: DDD (degenerative disc disease), lumbar Take 2 tabs p.o. nightly Start: 06/12/24. 60 tablet 06/12/2024 07/12/2024 Discontinued (Reorder (Suppress CancelRx Message to Pharmacy))Start: 04-27-2024 End: 11-76-0392tgnq 4 mg by mouth once daily4 mg, Oral, Nightly, First dose (after last modification) on Thu04/27/24 at 0200Start: 02-04-2024 End: 80-68-3795vzqz 2 tablets by mouth once dailytiZANidine (Zanaflex) 4 MG tablet Indications: DDD (degenerative disc disease), lumbar Take 2 tabs p.o. nightly . 60 tablet 05/13/2024 06/10/2024 Discontinued (Reorder (Suppress CancelRx Message to Pharmacy))Start: 02-03-2024 End: 16-72-0651miKTSggqjo (Zanaflex) 4 MG tablet Indications: DDD (degenerative disc disease), lumbar Take 1 (one)capsule (4 mg total) by mouth See Admin Instructions Take 2 tabs p.o. nightly . - Oral . 60 tablet 02/03/2024 02/04/2024 Discontinued (Reorder (Suppress CancelRx Message to Pharmacy))Start: 02-02-2024 End: 91-74-0056cuAUIoezzq (ZANAFLEX) 4 MG capsule Indications: DDD (degenerative disc disease), lumbar , Lumbar radiculopathy Take 1 (one) capsule (4 mg total) by mouth See Admin Instructions Take 2 tabs p.o. nightly . 60 capsule 3 03/09/2024 03/09/2024 DiscontinuedStart: 22-44-7337dlff 2 tablets by mouth once dailytiZANidine (ZANAFLEX) 4 MG tablet Indications: Muscle spasms of both lower extremities Take 2 tabs p.o. nightly . 60 tablet 01/13/2024 ActiveStart: 01-12-2024 End: 25-64-7407ooyf 8 mg by mouth once daily8 mg, Oral, Nightly, First dose on Thu01/12/24 at 2300Start: 12-12-2023 End: 36-29-8413dbqa 2 tablets by mouth once dailytiZANidine (ZANAFLEX) 4 MG tablet Indications: Muscle spasms of both lower extremities Take 2 tabs p.o. nightly Start: 12/12/23. 60 tablet 12/12/2023 01/11/2024 Discontinued (Reorder (Suppress CancelRx Message to Pharmacy))Start: 92-96-4174cbps 2 tablets by mouth once dailytiZANidine (ZANAFLEX) 4 MG tablet Indications: Muscle spasms of both lower extremities Take 2 tabs p.o. nightly Start: 12/12/23. 60 tablet 12/12/2023 ActiveStart: 91-99-0377hhpg 2 tablets by mouth once dailytiZANidine (ZANAFLEX) 4 MG tablet Indications: Muscle spasms of both lower extremities Take 2 tabs p .o. nightly Start: 12/12/23. 60 tablet 12/12/2023 ActiveStart: 07-01-2023 End: 56-74-9758hkli 1 tablet by mouth twice daily as needed for muscle spasms tiZANidine (ZANAFLEX) 4 MG tablet Indications: Muscle spasms of both lower extremities Take 1 (one)tablet (4 mg total) by mouth 2 (two) times a day as needed for muscle spasms . 60 tablet Discontinued (Reorder (Suppress CancelRx Message to Pharmacy))Start: 05-06-2023 End: 95-99-4357kxno 1 capsule by mouth twice daily as needed for muscle spasms tiZANidine (ZANAFLEX) 4 MG capsule Indications: Muscle spasms of both lower extremities Take 1 (one) capsule (4 mg total) by mouth 2 (two) times a day as needed for muscle spasms (muscle spasms) . 60capsule 0 08/10/2023 08/11/2023 Discontinued (Cost of medication)Start: 04-30-2023 End: 37-76-9231lbms 1 capsule by mouth once dailytiZANidine (ZANAFLEX) 2 MG capsule Take 1 (one) capsule (2 mg total) by mouth nightly for 7 days . 7 capsule 0 04/30/2023 05/06/2023 Discontinued (Therapy completed)Start: 02-18-2023 End: 67-53-6328wrkj 12 mg by mouth once daily12 mg, Oral, Nightly, First dose on Thu02/18/23 at 2300Start: 10-06-2022 End: 77-01-4234ntevoohvow (ZANAFLEX) tabletStart: 36-65-8203gmHSDcatgr (Zanaflex) 6 MG capsule 09/23/2022 ActiveStart: 09-12-2022 End: 44-62-5633sxrs 2 capsules by mouth at bedtimeTizanidine 6 mg capsule Discontinued 12 MG PO Bedtime September 11, 2022 11:00pm February 20, 2025 11:07amStart: 07-87-0664okqo 12 mg by mouth at bedtimeTizanidine Active 12 MG PO Bedtime September 12, 2022 12:00amStart: 08-20-2022 End: 58-56-2432yvni 1 tablet by mouth three times daily as needed for muscle spasmsTizanidine 4 mg tablet Discontinued 4 MG PO Three times daily as needed for Muscle Spasm August 19, 2022 11:00pm September 12, 2022 6:07amStart: 03-28-3954wjof 3 tablets by mouth once daily at bedtimeZanaflex 4 mg Tab 12 mg = 3 tab(s), Oral, Once a day (at bedtime), # 30 tab(s), Refills(s) 1, Pharmacy: [facility], 157, cm, 12/12/21 16:54:00 EDT, Height/Length Dosing, 114.8, kg, 12/13/2215:54:00 EDT, Weight Dosing Start Date: 12/29/21 Status: OrderedStart: 17-46-6959nhfv 3 tablets by mouth once daily at bedtimeZanaflex 4 mg Tab 12 mg = 3 tab(s), Oral, Once a day (at bedtime), # 30 tab(s), Refills(s) 1, Pharmacy: [facility], 157, cm, 12/12/21 16:54:00 EDT, Height/Length Dosing, 114.8, kg, 12/13/2215:54:00 EDT, Weight Dosing Start Date: 12/12/21 Status: OrderedStart: 83-82-6568obzs 3 tablets by mouth once daily at bedtime Zanaflex 4 mg Tab 12 mg = 3 tab(s), Oral, Once a day (at bedtime), # 30 tab(s), Refills(s) 0, Pharmacy: [facility], 158, cm, 10/09/21 15:33:00 EDT, Height/Length Dosing, 112.8, kg, 10/09/21 15:33:00 EDT, Weight Dosing Start Date: 10/28/21 Status: OrderedStart: 63-17-6615ouhr 3 tablets by mouth once daily at bedtimeZanaflex 4 mg Tab 12 mg = 3 tab(s), Oral, Once a day (at bedtime), # 30 tab(s), Refills(s) 0, Pharmacy: [facility], 158, cm, 09/30/21 14:00:00 EDT, Height/Length Dosing, 112.8, kg, 09/30/21 14:00:00 EDT, Weight Dosing Start Date: 09/30/21 Status: OrderedStart: 54-24-2695xdxn 3 tablets by mouth once daily at bedtimeZanaflex 4 mg Tab 12 mg = 3 tab(s), Oral, Once a day (at bedtime), # 30 tab(s), Refills(s) 0, Pharmacy: [facility], 157.5, cm, 07/29/21 14:55:00 EST, Height/Length Dosing, 110.1, kg, 07/29/21 14:55:00 EST, Weight Dosing Start Date: 07/31/21 Status: OrderedStart: 05-09-2020 End: 86-58-4243szJLCpcgub (ZANAFLEX) 2 MG tabletStart: 01-22-2019 End: 10-22-7709mgid 3 tablets by mouth three times daily as needed for headache Tizanidine 4 mg tablet Discontinued 12 MG PO Three times daily as needed for Headache January 22, 2019 2:40pm January 29, 2019 10:28amStart: 01-22-2019 End: 27-10-5404qrpd 12 mg by mouth three times dailyTizanidine Discontinued 12 MG PO Three times daily January 22, 2019 3:40pm January 29, 2019 11:28am Start: 09-07-2018 End: 35-40-9239esac 6 mg by mouth three times dailyTizanidine Discontinued 6 MG PO Three times daily 60 30 September 09, 2018 12:00am January 22, 2019 3:41pm Start: 09-07-2018 End: 73-39-3199nbpp 6 mg by mouth three times daily as needed for headache Tizanidine 4 mg Tablet Discontinued 6 MG PO Three times daily as needed for Headache 60 30 0 September 08, 2018 11:00pm January 22, 2019 2:41pmStart: 07-23-2018 End: 46-99-2530yzzq 2 tablets by mouth at bedtimeTizanidine 4 mg tablet Discontinued 8 MG PO Bedtime July 23, 2018 12:00am September 07, 2018 1:59pm Start: 07-23-2018 End: 87-23-2757nkzq 8 mg by mouth at bedtimeTizanidine Discontinued 8 MG PO Bedtime July 23, 2018 1:00am September 07, 2018 2:59pmStart: 08-22-2012 End: 44-84-0558hwnu 1 tablet by mouth three times dailyTizanidine (Zanaflex) 4 MG tablet Discontinued 4 MG PO THREE TIMES DAILY August 22, 2012 12:00am [facility] 2014 12:45pm End: 93-00-0125foit 1 capsule by mouth three times daily as needed for pain tiZANidine (ZANAFLEX) 4 MG capsule Take 1 (one) capsule (4 mg total) by mouth 3 (three) times a dayas needed for muscle spasms USES FOR BACK PAIN . 0 02/17/2023 Discontinuedtake 2 tablets by mouth three times daily as needed for muscle spasmsZanaflex 4 MG 2 tablet Orally Three times a day as needed for muscle spasm for 30 days ActivetraZODone hydrochloride 100 mg oral tablet (20 sources)Serotonin Reuptake InhibitorStart: 05-31-2024 End: 82-59-6004umge 1 tablet by mouth once daily as needed for sleeptraZODone (DESYREL) 100 MG tablet Indications: Insomnia, unspecified type Take 1 (one) tablet (100 mg total) by mouth nightly as needed for sleep . 90 tablet 1 08/02/2024 ActiveStart: 04-26-2024 End: 34-48-958751 mg, Oral, Nightly PRN, sleep, Starting on 04/26/24 at 2343, May repeat times 1 in 30 minutes if still awake.Start: 10-30-2023 End: 08-40-5175xxwo 1 tablet by mouth once daily as neededtraZODone (DESYREL) 50 MG tablet Take 1 (one) tablet (50 mg total) by mouth nightly as needed . 90 t ablet 02/08/2024 ActiveStart: 03-29-2023 End: 19-99-6004wsyx 50 mg by mouth once daily as needed for sleep50 mg, Oral, Nightly PRN, sleep, Starting on 03/29/23 at 1432 To be administered 1 hour after melatonin if still awake. May repeat x 1 dose in 30 minutes if still awake.Start: 06-03-2020 End: 77-92-6569wraa 50 mg by mouth once daily as needed for sleep50 mg, Oral, Nightly PRN, sleep, Starting on Thu02/18/23 at 0028zolpidem tartrate 5 mg oral tablet (5 sources)gamma-Aminobutyric Acid-ergic AgonistStart: 12-08-2021 End: 69-52-6830rulz 1 tablet by mouth once daily as needed for sleepzolpidem (AMBIEN) 5 MG tablet Indications: Other insomnia Take 1 tablet by mouth nightly as needed for Sleep for up to 14 days. 7 tablet 0 12/08/2021 12/22/2021 Active Start: 06-03-2020 End: 45-38-3599madu 5 mg by mouth once daily as needed for sleep5 mg, Oral, Nightly PRN, sleep, Starting 06/03/20 at 1750Start: 08-22-2012 End: 06-77-7175apkt 1 tablet by mouth at bedtimeZolpidem (Ambien) 10 MG tablet Discontinued 10 MG PO BEDTIME August 22, 2012 12:00am July 06, 2014 12:46pm End: 98-12-4634xyht 1 tablet by mouth once daily as needed for sleepzolpidem (AMBIEN CR) 6.25 MG CR tablet Take 6.25 mg by mouth nightly as needed for sleep. 0 06/05/2020 Discontinued (Stop Taking at Discharge) (2 sources)Start: 04-16-2020 (2 sources)Start: 12-03-2023 (2 sources)Start: 12-03-2023 (2 sources)Start: 12-03-2023 (2 sources)Start: 12-08-2023 End: 06-05-2024 (2 sources)Start: 12-08-2023 (2 sources)Start: 12-10-2023 (2 sources)Start: 01-29-2024 (2 sources)Start: 03-10-2024 End: 03-10-2025 (2 sources) Completed/Discontinued Medications MedicationDrug Class(es)DatesSig (Normalized)Sig (Original)acetaminophen 325 mg oral tablet (3 sources)Start: 03-29-2023 End: 84-25-1963ircn 1 tablet by mouth every six hours as needed for pain and jnvorsdc573 mg, Oral, Every 6 hours PRN, mild pain, fever 100.4 F or greater, headaches, Starting on Thu03/29/23 at 1432Start: 12-08-2021 End: 56-19-5278seoqgesmbtqme (TYLENOL) tablet 1,000 mgStart: 06-03-2020 End: 30-41-4184rmao 1 tablet by mouth every four hours as mg, Oral, Every 4 hours PRN, mild pain, fever 100.4 F or greater, headaches, Starting 06/03/20 at 1750acetaminophen 325 mg / HYDROcodone bitartrate 5 mg oral tablet (4 sources)Opioid AgonistStart: 01-25-2023 End: 07-70-1032yktb 1 tablet by mouth every six hours as needed for pain HYDROcodone-acetaminophen (NORCO) 5-325 mg per tablet Indications: Pain of right lower extremity , Injury of right knee, subsequent encounter Take 1 (one) tablet by mouth every 6 (six) hours as needed for pain . 14 tablet 0 01/25/2023 02/17/2023 DiscontinuedStart: 06-26-2017 End: 61-78-1462qtrg 1 tablet by mouth once, then take 1 tablet by mouth HYDROcodone-acetaminophen (NORCO) 5-325 mg per tablet 1 tablet 1 tablet, Oral, Once, Thu06/26/17 at 2200, For 1 dose Given 06/26/2017 22:14 EST 1 tabletaluminum hydroxide 40 mg/ml / magnesium hydroxide 40 mg/ml / simethicone 4 mg/ml oral suspension (2 sources)Start: 02-18-2023 End: 92-63-7136gomz 30 mL by mouth every four hours as needed for gastroesophageal reflux xqmeing50 mL, Oral, Every 4 hours PRN, indigestion, heartburn, Starting on Thu02/18/23 at 0028Start: 06-03-2020 End: 92-56-5533czth 30 mL by mouth every four hours as huyfol35 mL, Oral, Every 4 hours PRN, indigestion, Starting 06/03/20 at 1750amitriptyline hydrochloride 25 mg oral tablet (20 sources)Tricyclic AntidepressantStart: 08-19-2018 End: 21-58-5781jwik 1 tablet by mouth once daily at bedtimeAmitriptyline 25 mg Tablet Discontinued 25 MG PO Daily at bedtime September 06, 2018 11:00pm July 2:10amamoxicillin 500 mg oral capsule (10 sources)Penicillin-class AntibacterialStart: 12-01-2023 End: 80-85-7354ffqi 1 capsule by mouth three times dailyamoxicillin (AMOXIL) 500 MG capsule Indications: Upper respiratory tract infection, unspecified type Take 1 (one) capsule (500 mg total) by mouth 3 (three) times a day . 15 capsule 12/01/2023 01/12/2024 Discontinued (Therapy completed)amoxicillin 875 mg / clavulanate 125 mg oral tablet (13 sources)Penicillin-class AntibacterialStart: 07-05-2024 End: 24-87-7281ezqb 1 tablet by mouth onceamoxicillin-clavulanate (AUGMENTIN) 875-125 mg per tablet Take 1 (one) tablet by mouth . 5007/15/2024 ExpiredStart: 07-05-2024 End: 84-79-4512pfqz 1 tablet by mouth in the morning, then take 1 tablet by mouth after mealtime, then take 1 tablet by mouth twice dailyamoxicillin- clavulanate (Augmentin) 875-125 MG tablet Indications: Diabetic Foot Infection Take 1 tablet (875 mg) by mouth in the morning and 1 tablet (875 mg) in the evening. Take after meals. Do all this for 10 days. Take 1 pill p.o. b.I.d. for 10 days. 20 tablet 07/05/2024 07/15/2024 ActiveStart: 09-19-2023 End: 47-80-6739kkuk 1 tablet by mouth twice dailyamoxicillin-clavulanate (AUGMENTIN) 875-125 mg per tablet Take 1 (one) tablet by mouth 2 (two) times a day for 7 days . 14 tablet 0 09/19/2023 09/26/2023 ActiveStart: 05-04-2023 End: 81-83-3767ufgs 1 tablet by mouth twice dailyamoxicillin-clavulanate (AUGMENTIN) 875-125 mg per tablet Take 1 (one) tablet by mouth 2 (two) times a day for 7 days . 14 tablet 0 05/04/2023 05/11/2023 SuspendedStart: 08-21-2022 End: 44-66-4793vlem 1 tablet by mouth every eight hoursAmoxicillin-Pot Clavulanate 500-125 mg tablet Discontinued 1 TAB PO Q8H 30 10 0 August 20, 2022 11:00pm September 12, 2022 6:00amARIPiprazole 10 mg oral tablet (2 sources)Atypical Antipsychotic End: 29-90-2421jvzc 1 tablet by mouth once dailyARIPiprazole (ABILIFY) 10 MG tablet Take 10 mg by mouth daily. 0 06/05/2020 Discontinued (Stop Taking at Discharge)atorvastatin 40 mg oral tablet (20 sources)HMG-CoA Reductase InhibitorStart: 12-03-2024 End: 13-91-8613jotq 80 mg by mouth once daily80 mg, oral, Daily, First dose on 12/03/24 at 0900, Look-alike/sound-alike medication - verify indication for use.Start: 19-18-6213cnsq 1 tablet by mouth once dailyatorvastatin (LIPITOR) 80 MG tablet Take 1 (one) tablet (80 mg total) by mouth daily . 90 tablet 1 0 08/05/2024 ActiveStart: 06-03-2020 End: 73-30-8165clbh 20 mg by mouth once daily20 mg, Oral, Nightly, First dose on 06/03/20 at 2330Start: 06-15-2015 End: 36-52-6211yrnf 1 tablet by mouth once dailyAtorvastatin 10 MG tablet Discontinued 10 MG PO DAILY June 15, 2015 1:00am August 29, 2024 1:56pm Start: 03-08-2015 End: 58-99-6582qmyj 1 tablet by mouth once daily in the eveningAtorvastatin 40 mg Tablet Active 40 MG PO Every evening 30 August 21, 2022 11:00pm Complies withdrug therapyStart: 03-08-2015 End: 33-77-4629gbot 1 tablet by mouth once dailyAtorvastatin 20 mg tablet Discontinued 20 MG PO Daily July 23, 2018 12:00am August 20, 2022 2:10am bisacodyl 10 mg rectal suppository (2 sources)Stimulant LaxativeStart: 02-18-2023 End: 81-67-6378nrzj 10 mg rectal route once daily as needed for ucllxgddybnq30 mg, Rectal, Daily PRN, constipation, Starting on Thu02/18/23 at 0028 Try oral medications first for constipation. Try rectal medication if oral meds are ineffective, not tolerated, or not ordered.Start: 06-03-2020 End: 97-94-2091gvhy 10 mg rectal route once daily as needed for mg, Rectal, Daily PRN, constipation, Starting Thu06/03/20 at 1750 Try oral medications first forconstipation. Try rectal medication if oral meds are ineffective, not tolerated,or not ordered.Budesonide / formoterol (1 source)Corticosteroid, beta2-Adrenergic AgonistStart: 06-03-2020 End: 11-15-5903jxcp 2 puff(s) by inhalation twice daily2 puff, Inhalation, 2 times daily (RT), First dose on Thu06/03/20 at 2000busPIRone hydrochloride 10 mg oral tablet (20 sources)Start: 04-27-2024 End: 84-19-6537ncmo 30 mg by mouth twice daily30 mg, Oral, 2 times daily, First dose (after last modification) on Thu04/27/24 at 0900Start: 03-25-2024 End: 88-68-4538Pqfuv: 01-12-2024 End: 18-76-9797cqzj 30 mg by mouth every twelve hours30 mg, Oral, Every 12 hours scheduled, First dose on Thu01/12/24 at 2200Start: 06-03-2020 End: 08-88-5586fpkVBGnvv (BUSPAR) tablet 15 mgStart: 05-31-2020 End: 81-39-3263ogqFEMvgm (BUSPAR) 30 MG tablet 1 (one) tablet (30 mg total) 2 (two) times a day Starts this when done with 15 mg doses x 1 more week . 0 05/31/2020 02/17/2023 DiscontinuedStart: 05-03-2020 End: 13-77-9030akrDYXsag (BUSPAR) 15 MG tablet 1 (one) tablet (15 mg total) 2 (two) times a day States takes for 1more week then goes to higher dose . 0 05/03/2020 02/17/2023 Discontinuedcariprazine 6 mg oral capsule (7 sources)Atypical AntipsychoticStart: 05-31-2020 End: 20-26-4575mywa 1 capsule by mouth once dailyVraylar 6 mg cap Take 1 (one) capsule (6 mg total) by mouth daily . 0 05/31/2020 02/17/2023 DiscontinuedStart: 05-03-2020 End: 57-51-6383Njcayjy 4.5 mg cap 4.5 mg daily . 0 05/03/2020 06/04/2020 Discontinued (Dose adjustment)cefadroxil 500 mg oral capsule (2 sources)Cephalosporin AntibacterialStart: 03-30-2024 End: 60-58-7042ypJNZfztx 2000 mg injection (3 sources)Cephalosporin AntibacterialStart: 04-27-2024 End: 78-23-1995dvmg 2000 mg intravenously every eight hours2,000 mg, Intravenous, at 100 mL/hr, Every 8 hours, First dose on Thu04/27/24 at 0600, Indication: Community Acquired CellulitisStart: 06-03-2020 End: 43-47-6266prba 2000 mg intravenous route every eight hours2,000 mg, Intravenous, at 100 mL/hr, Every 8 hours, First dose on Thu06/03/20 at 2300 Indication: Community Acquired CellulitisStart: 06-03-2020 End: 09-26-2777eiMHPgjem (ANCEF) IVPB 1 g (premix)cefdinir 300 mg oral capsule (3 sources)Cephalosporin AntibacterialStart: 04-30-2023 End: 79-47-3582ceat 1 capsule by mouth twice dailycefdinir (OMNICEF) 300 MG capsule Take 1 (one) capsule (300 mg total) by mouth 2 (two) times a day for 7 days . 14 capsule 0 04/30/2023 05/06/2023 Discontinued (Therapy completed)Start: 11-06-2021 End: 09-78-7751eotg 1 capsule by mouth every twelve hourscefdinir 300 mg Cap 300 mg = 1 cap(s), Oral, q12hr, X 7 day(s), # 14 cap(s), Refills(s) 0, Pharmacy: [id number], 158, cm, 11/04/21 11:29:00 EDT, Height/Length Dosing, 113, kg, 11/04/21 11:29:00 EDT, Weight Dosing Start Date: 11/06/21 Stop Date: 11/13/21 Status: Orderedcefepime 2000 mg injection (1 source)Cephalosporin AntibacterialStart: 01-12-2024 End: ,000 mg, Intravenous, at 100 mL/hr, Once, On Thu01/12/24 at 1700, For 1 dose, Indication: Other: (specify), Indication: diabetic foot infectioncephalexin 500 mg oral capsule (12 sources)Cephalosporin AntibacterialStart: 04-28-2023 End: 33-66-9243irze 1 capsule by mouth four times dailycephALEXin (KEFLEX) 500 MG capsule Take 1 (one) capsule (500 mg total) by mouth 4 (four) times a day for 10 days . 40 capsule 0 04/28/2023 05/06/2023 Discontinued (Therapy completed) Start: 08-05-2019 End: 89-90-5202kxcd 1 capsule by mouth twice dailyCephalexin 500 mg capsule Discontinued 500 MG PO Twice daily 10 5 0 August 04, 2019 11:00pm September 22, 2019 7:10am End: 26-08-5561xgtl 1 capsule by mouth four times dailycephALEXin (KEFLEX) 500 MG capsule Take 500 mg by mouth 4 (four) times a day . 0 06/05/2020 Discontinued (Stop Taking at Discharge)chlorhexidine gluconate 40 mg/ml medicated liquid soap (9 sources)Start: 09-07-2018 End: 64-49-2021Sngqbknrroghh Gluconate (Hibiclens) 4 % Liquid Discontinued 1 APPLIC TOPICAL Twice a Week September 06, 2018 11:00pm March 24, 2019 7:29am ciprofloxacin 3 mg/ml / dexamethasone 1 mg/ml otic suspension (2 sources)Corticosteroid, Quinolone AntimicrobialStart: 05-06-2023 End: 57-57-8612mrkqowhwklqfq-dexAMETHasone (CIPRODEX) otic suspension Indications: Non-recurrent acute suppurativeotitis media of left ear without spontaneous rupture of tympanic membrane Administer 4 (four) dropsinto the left ear 2 (two) times a day for 7 days . 7.5 mL 0 05/06/2023 05/13/2023 Suspended cyclobenzaprine hydrochloride 10 mg oral tablet (7 sources)Muscle RelaxantStart: 06-26-2017 End: 22-07-3815wwbl 1 tablet by mouth three times daily as needed for muscle spasmscyclobenzaprine (FLEXERIL) 10 MG tablet Take 1 (one) tablet (10 mg total) by mouth 3 (three) times a day as needed for muscle spasms. 15 tablet 0 06/26/2017 02/17/2023 Discontinueddexamethasone 0.75 mg oral tablet (1 source)CorticosteroidStart: 05-05-2015 End: 59-35-3487twbb 1 tablet by mouth twice dailyDexamethasone 0.75 MG tablet Discontinued 0.75 MG PO TWO TIMES DAILY May 05, 2015 1:00am June 16, 2015 12:19amdextromethorphan hydrobromide 2 mg/ml / guaiFENesin 20 mg/ml oral solution (4 sources)Uncompetitive L-elwutq-F-aspartate Receptor Antagonist, Sigma-1 AgonistStart: 05-15-2023 End: 07-59-9095xlsq 5 mL by mouth every four hoursdextromethorphan-guaiFENesin 10-100 mg/5 mL Liqd Indications: Acute effusion of left ear Take 5 mL by mouth every 4 (four) hours . 118 mL 0 05/15/2023 06/22/2023 Discontinueddiclofenac sodium 0.03 mg/mg topical gel (4 sources)Nonsteroidal Anti-inflammatory DrugStart: 01-31-2023 End: 14-02-0837vmeoswdocu sodium 3 % Gel Apply 1 application. topically 2 (two) times a day for 5 days . 100 g 0 01/31/2023 02/20/2023 Discontinued (Stop Taking at Discharge)take 1 tablet by mouth twice dailydiclofenac (VOLTAREN) 75 MG EC tablet Take 75 mg by mouth 2 times daily 0 Active0.4 ml enoxaparin sodium 100 mg/ml prefilled syringe (7 sources)Low Molecular Weight HeparinStart: 04-27-2024 End: 01-33-4876nsyngs 40 mg by subcutaneous injection twice daily40 mg, Subcutaneous, 2 times daily, First dose on 12/4/24 at 0900, Administer in abdomen unlessotherwise directed by prescriber. Notify physician if patient refuses., Indication: VTE ProphylaxisStart: 03-30-2024 End: 38-30-9284Nzoez: 03-28-2024 End: 46-00-0993Eltge: 03-25-2024 End: 03-21-0101Qxjgk: 02-20-2023 End: 46-34-0834octjuxwkoe (LOVENOX) syringe 30 mgStart: 02-18-2023 End: 86-00-6678cchrbn 40 mg by subcutaneous injection twice daily40 mg, Subcutaneous, 2 times daily, First dose on Thu02/18/23 at 0900 Administer in abdomen unless otherwise directed by prescriber. Notify physician if patient refuses. Indication: VTE ProphylaxisStart: 06-03-2020 End: 57-24-9179pfbvbz 40 mg by subcutaneous injection twice daily40 mg, Subcutaneous, 2 times daily, First dose on Thu06/03/20 at 2000 Administer in abdomen unless otherwise directed by prescriber. Notify physician if patient refuses. Indication: VTE Prophylaxisergocalciferol 1.25 mg oral capsule (20 sources)Provitamin D2 CompoundStart: 47-83-4867jltzqeuzwrmosc 50,000 intl units Cap 50,000 International_Unit = 1 cap(s), Oral, Thursday, # 4 cap(s), Refills(s) 0 Start Date: 09/12/22 Status: OrderedStart: 08-22-2022 End: 65-62-8274srwl 1 capsule by mouth every weekergocalciferol (Vitamin D2) 1.25 MG (40867 UT) capsule Take 1 capsule by mouth 1 (one) time per week 08/22/2022 ActiveStart: 08-22-2022 End: 00-09-1334ffed 1 capsule by mouth every weekErgocalciferol (Vitamin D2) 1,250 mcg (50,000 unit) capsule Discontinued 1250 MCG PO every week September 11, 2022 11:00pm February 20, 2025 10:57amStart: 04-08-2022 End: 36-43-7862eiuplwzedekyae 50,000 intl units Cap 50,000 International_Unit = 1 cap(s), Oral, q7day, X 6 week(s), # 6 cap(s), Refills(s) 0, Pharmacy: [facility], 162, cm, 04/06/22 20:38:00 EST, Height/Length Dosing, 112, kg, 04/06/22 20:38:00 EST, Weight Dosing Start Date: 04/08/22 Stop Date: 05/20/22 Status: Ordered End: 71-97-7119huqf 1 capsule by mouth every weekergocalciferol (Vitamin D2) 1,250 mcg (50,000 unit) capsule Indications: Vitamin D deficiency Take 1.25 mcg by mouth once a week . 0 09/03/2023 Discontinued (Reorder (Suppress CancelRx Message to Pharmacy))flu vacc [id number] 6mos up(PF) (FLUZONE QUAD/FLULAVAL QUAD/FLUARIX QUAD) syringe 0.5 mL (1 source)Start: 06-03-2020 End: 82-39-1687lnuhoh 0.5 mL by intramuscular injection every twenty-four hours as neededflu vacc [id number] 6mos up(PF) (FLUZONE QUAD/FLULAVAL QUAD/FLUARIX QUAD) syringe 0.5 mLflu vacc [id number] 6mos up(PF) (FLUZONE QUAD/FLULAVAL QUAD/FLUARIX QUAD) syringe Syrg 0.5 mL (1 source)Start: 03-29-2023 End: 60-66-1679fcocfm 0.5 mL by intramuscular injection every twenty-four hours as neededflu vacc [id number] 6mos up(PF) (FLUZONE QUAD/FLULAVAL QUAD/FLUARIX QUAD) syringe Syrg 0.5 mLFLUoxetine 40 mg oral capsule (4 sources)Serotonin Reuptake InhibitorStart: 08-22-2012 End: 32-01-4666bnsy 1 capsule by mouth once dailyFluoxetine 40 MG capsule Discontinued 40 MG PO DAILY April 13, 2015 1:00am April 28, 2015 1:54amfluticasone / salmeterol (20 sources)Corticosteroid, beta2-Adrenergic Agonist End: 47-69-1154vlap 1 puff(s) by inhalation twice dailyfluticasone-salmeterol (ADVAIR DISKUS) 250-50 mcg/dose diskus inhaler Inhale 1 (one) puff 2 (two) times a day . 0 05/10/2023 Discontinued (Error)take 1 puff(s) by inhalation twice dailyfluticasone-salmeterol (ADVAIR DISKUS) 250-50 mcg/dose diskus inhaler Inhale 1 (one) puff 2 (two) times a day . 0take 1 puff(s) by inhalation twice dailyfluticasone-salmeterol (ADVAIR DISKUS) 250-50 mcg/dose diskus inhaler Inhale 1 (one) puff 2 (two) times a day . 0 Activetake 1 puff(s) by inhalation once dailyfluticasone-salmeterol (ADVAIR) 250-50 MCG/DOSE AEPB Inhale 1 puff into the lungs daily 0 Activetake 1 puff(s) by inhalation twice daily fluticasone-salmeterol (ADVAIR DISKUS) 250-50 mcg/dose diskus inhaler Inhale 1 puff 2 (two) times aday. 0 Activefluticasone-salmeterol (ADVAIR DISKUS) 250-50 mcg/dose diskus inhaler Inhale 1 puff 2 (two) times aday. Vnknna27 actuat formoterol fumarate 0.005 mg/actuat / mometasone furoate 0.2 mg/actuat metered dose inhaler (1 source)Corticosteroid, beta2-Adrenergic AgonistStart: 02-18-2023 End: 70-59-6536edpb 2 puff(s) by inhalation twice daily2 puff, Inhalation, 2 times daily (RT), First dose on Thu02/18/23 at 0900FreeStyle Zeinab 2 [place] Misc (20 sources)Start: 04-01-2023 End: 18-63-0735NqdxPbmnd Zeinab 2 [place] Misc Indications: Type 2 diabetes mellitus with diabetic polyneuropathy, with long-term current use of insulin (HCC) Inject 1 each under the skin 2 (two) times a day . 04/01/2023 12/02/2023 Discontinued (Alternate therapy)Start: 55-38-3583IhzpStluu Zeinab 2 [place] Misc Indications: Type 2 diabetes mellitus with diabetic polyneuropathy, with long- term current use of insulin (HCC) Inject 1 each under the skin 2 (two) times a day . 04/01/2023 ActiveStart: 25-00-0159XbtdPstzh Zeinab 2 [place] Misc Indications: Type 2 diabetes mellitus with diabetic polyneuropathy, with long- term current use of insulin (HCC) Inject 1 each under the skin 2 (two) times a day . 0 04/01/2023 SuspendedStart: 76-80-6252JmwzDrfft Zeinab 2 [place] Misc Indications: Type 2 diabetes mellitus with diabetic polyneuropathy, with long- term current use of insulin (HCC) Inject 1 each under the skin 2 (two) times a day . 0 04/01/2023 ActiveFreeStyle Zeinab 2 Sensor Kit (20 sources)Start: 11-12-2023 End: 19-44-0974OwyiPdyeb Zeinab 2 Sensor Kit Indications: Type 2 diabetes mellitus with diabetic polyneuropathy, with long-term current use of insulin (HCC) 1 kit by Miscellaneous route every 14 (fourteen) days . 2 kit 1 11/12/2023 12/02/2023 Discontinued (Alternate therapy)Start: 02-24-9088ZryyCsmmm Zeinab 2 Sensor Kit Indications: Type 2 diabetes mellitus with diabetic polyneuropathy, with long-term current use of insulin (HCC) 1 kit by Miscellaneous route every 14 (fourteen) days . 2 kit 1 11/12/2023 ActiveStart: 09-03-2023 End: 21-86-1697DithNdtxf Zeinab 2 Sensor Kit Indications: Type 2 diabetes mellitus with diabetic polyneuropathy, with long-term current use of insulin (HCC) 1 kit by Miscellaneous route every 14 (fourteen) days . 2 kit 1 09/03/2023 11/12/2023 Discontinued (Reorder (Suppress CancelRx Message to Pharmacy))Start: 15-99-9170UoiwRfpcv Zeinab 2 Sensor Kit Indications: Type 2 diabetes mellitus with diabetic polyneuropathy, with long-term current use of insulin (HCC) 1 kit by Miscellaneous route every 14 (fourteen) days . 2 kit 1 09/03/2023 Active Start: 06-22-2023 End: 74-97-0834ZrrzSxrlu Zeinab 2 Sensor Kit Indications: Type 2 diabetes mellitus with diabetic polyneuropathy, with long-term current use of insulin (HCC) 1 kit by Miscellaneous route every 14 (fourteen) days . 2 kit 1 06/22/2023 09/03/2023 Discontinued (Reorder (Suppress CancelRx Message to Pharmacy))Start: 64-99-1300PqslTbhpm Zeinab 2 Sensor Kit Indications: Type 2 diabetes mellitus with diabetic polyneuropathy, with long-term current use of insulin (HCC) 1 kit by Miscellaneous route every 14 (fourteen) days . 2 kit 1 06/22/2023 Active Start: 04-20-2023 End: 50-45-7162FxmoUosqg Zeinab 2 Sensor Kit Indications: Type 2 diabetes mellitus with diabetic polyneuropathy, with long-term current use of insulin (HCC) 1 kit by Miscellaneous route every 14 (fourteen) days . 0 04/20/2023 06/22/2023 Discontinued (Reorder (Suppress CancelRx Message to Pharmacy))Start: 58-47-1102VzppAyexd Zeinab 2 Sensor Kit Indications: Type 2 diabetes mellitus with diabetic polyneuropathy, with long-term current use of insulin (HCC) 1 kit by Miscellaneous route every 14 (fourteen) days . 0 04/20/2023 SuspendedStart: 45-26-0520NiivQawyd Zeinab 2 Sensor Kit Indications: Type 2 diabetes mellitus with diabetic polyneuropathy, with long-term current use of insulin (HCC) 1 kit by Miscellaneous route every 14 (fourteen) days . 0 04/20/2023 Activegabapentin 100 mg oral capsule (2 sources)Anti-epileptic AgentStart: 03-31-2023 End: 96-34-7465xvon 2 capsules by mouth twice dailygabapentin (NEURONTIN) 100 MG capsule Take 2 (two) capsules (200 mg total) by mouth 2 (two) times aday . 0 03/31/2023 05/06/2023 Discontinued (Therapy completed)glucagon (rdna) 1 mg injection (20 sources)Antihypoglycemic AgentStart: 12-03-2024 End: mg, intramuscular, As needed, low blood sugar, blood glucose less than 70 mg/dL and unconscious or NPO without IV access., Starting on 12/03/24 at 1655, If conscious and not NPO, immediately follow with meal tray or high protein (7Grams) snack if tray not available. If NPO, initiate IV 5% Dextr ose/Water at 100 mL/hr and contact prescriber for additional orders. If blood glucose is not greater than 70 mg/dL after initial treatment, repeat treatment. Start: 12-03-2023 End: 56-35-7028oevbsjwp (Gvoke HypoPen 2-Pack) 1 mg/0.2 mL AtIn Indications: Type 2 diabetes mellitus with diabetic polyneuropathy, with long-term current use of insulin (HCC) Inject 0.2 mL (1 mg total) under the skin as needed . 2 mL 1 12/03/2023 ActiveStart: ml glucose 500 mg/ml prefilled syringe (2 sources)Start: 12-03-2024 End: g, oral, As needed, low blood sugar, blood glucose less than 70 mg/dL, Starting on 12/03/24 at 1655, If patient conscious and taking PO. If blood glucose is not greater than 70 mg/dL after initial treatment, repeat treatment.Start: 12-03-2024 End: mL, intravenous, As needed, low blood sugar, blood glucose less than 70 mg/dL and unconscious orNPO with IV access, Starting on 12/03/24 at [...] / sodium chloride 9 mg/ml injection (1 source)Start: 12-03-2024 End: 79-49-4701ldmr 250 mg intravenously every hour as mtrlhe607 mL/hr, intravenous, Continuous PRN, for blood glucose 250mg/dL or less, Starting on 12/03/24at 0740, For 1 day, Once IV fluid is changed to dextrose-containing formulation, DO NOT change to dvs-rpjfeizl-fiwmkgobkq IV fluid if blood glucose exceeds 250 mg/dL.12 hr guaiFENesin 600 mg extended release oral tablet (15 sources)Start: 05-06-2023 End: 37-69-2240rvtc 1 tablet by mouth onceguaiFENesin (MUCINEX) 600 mg 12 hr tablet Indications: Non-recurrent acute suppurative otitis mediaof left ear without spontaneous rupture of tympanic membrane Take 1 (one) tablet (600 mg total) by mouth every 12 (twelve) hours . 20 tablet 0 05/06/2023 06/22/2023 DiscontinuedStart: 23-94-7104lmwc 2 tablets by mouth twice dailyMucinex 600 mg Tab-ER 1,200 mg = 2 tab(s), Oral, BID, # 30 tab(s), Refills(s) 0, Pharmacy: [facility], 162, cm, 04/06/22 20:38:00 EST, Height/Length Dosing, 112, kg, 04/06/22 20:38:00 EST,Weight Dosing Start Date: 04/08/22 Status: Ssxjqfb82 hr guaiFENesin 600 mg / pseudoephedrine hydrochloride 60 mg extended release oral tablet (2 sources)alpha-Adrenergic AgonistStart: 05-04-2023 End: 27-79-8620olxu 1 tablet by mouth every twelve hourspseudoephedrine- guaiFENesin (MUCINEX D) 60-600 mg per tablet Take 1 (one) tablet by mouth every 12 (twelve) hours for 7 days . 14 tablet 0 05/04/2023 05/06/2023 Discontinued (Therapy completed)1 ml heparin sodium, porcine 5000 unt/ml injection (7 sources)Unfractionated Heparin, Anti-coagulantStart: 12-03-2024 End: 55,000 Units, subcutaneous, Every 12 hours scheduled, First dose on Thu12/03/24 at 1800, Notify prescriber if INR greater than 1.9, hemoglobin less than 10 mg/dL, aPTT greater than 40 seconds, and/or platelet count less than 100,000/mm Look-alike/sound-alike medication - verify indication for use. Observe for bleeding.Start: 04-29-2024 End: 24-12-0671056 Units, Intravenous, Once, On Thu04/29/24 at 1500, For 1 dose, De-access portStart: 04-04-2024 End: 04-21-6207Ocyvc: 01-18-2024 End: 98-49-7744433 Units, Intravenous, Once, On Thu01/18/24 at 1200, For 1 dose Start: 01-18-2024 End: 67-99-7383yqwvcz 5000 [IU] by subcutaneous injection every eight hours5,000 Units, Subcutaneous, Every 8 hours scheduled, First dose on Thu01/18/24 at 0900, Notify physician if patient refuses.Start: 03-30-2023 End: 95-17-8568bgwcefa, porcine (PF) injection 500 UnitsStart: 03-29-2023 End: 90-04-8689fypruj 5000 [IU] by subcutaneous injection every eight hours5,000 Units, Subcutaneous, Every 8 hours scheduled, First dose on Thu03/29/23 at 2200 Notify physician if patient refuses.1 ml hydrALAZINE hydrochloride 20 mg/ml injection (3 sources)Arteriolar VasodilatorStart: 04-27-2024 End: 27-39-2761rmaf 10 mg intravenously every six hours as uvspfa73 mg, Intravenous, Every 6 hours PRN, SBP > 180 or DBP > 100, hold for HR >100, Starting on Thu04/27/24 at 0109Start: 04-01-2024 End: 75-79-3981adzz 10 mg intravenously every six hours as neededStart: 01-13-2024 End: 17-20-5185bdnu 10 mg intravenously every six hours as xqqulg64 mg, Intravenous, Every 6 hours PRN, sbp>180, Starting on Thu01/13/24 at [address]95.5 ml HYDROmorphone hydrochloride 1 mg/ml prefilled syringe (1 source)Opioid AgonistStart: 06-04-2020 End: 87-77-7323gxhi 0.5 mg intravenous route every three hours as needed HYDROmorphone (DILAUDID) injection 0.5 mgindomethacin 50 mg oral capsule (1 source)Nonsteroidal Anti-inflammatory DrugStart: 05-05-2015 End: 57-31-5952zzxb 1 capsule by mouth three times daily as needed for pain Indomethacin 50 MG capsule Discontinued 50 MG PO THREE TIMES DAILY as needed for Pain 15 Angelito 12th, 2015 4:39pm June 16, 2015 12:19aminhalational spacing device inhaler (20 sources)Start: 03-10-2024 End: 83-90-2384qxqmxxkynndi spacing device inhaler Use as instructed . 1 each 2 03/10/2024 03/10/2025 ExpiredStart: 03-10-2024 End: 77-30-8014fsqivkahqesj spacing device inhaler Use as instructed . 1 each 2 03/10/2024 03/10/2025Start: 03-10-2024 End: 63-47-8579fkiqyauwpzmj spacing device inhaler Use as instructed . 1 each 2 03/10/2024 03/10/2025 SuspendedStart: 03-10-2024 End: 59-68-6099mezbbqnbxfhf spacing device inhaler Use as instructed . 1 each 2 03/10/2024 03/10/2025 Active3 ml insulin detemir 100 unt/ml pen injector (20 sources)Insulin AnalogStart: 01-29-2019 End: 60-38-5737kfpyok 10 [IU] by subcutaneous injection once dailyInsulin Detemir U-100 (Levemir Flextouch U100 Insulin) 100 unit/mL (3 mL) Insulin Pen Discontinued 10 UNITS SUBCUT Daily 0 0 January 28, 2019 11:00pm August 05, 2019 2:09pmStart: 07-23-2018 End: 59-75-7010gkqrpm 70 [IU] by subcutaneous injection twice dailyInsulin Detemir U-100 (Levemir U-100 Insulin) 100 unit/mL Solution Discontinued 70 UNIT SUBCUT Twice daily July 23, 2018 12:00am September 06, 2018 8:11pminject 25 [IU] by subcutaneous injection once dailyinsulin lispro (AdmeLOG,HumaLOG) injection 0-15 Units (1 source)Start: 04-27-2024 End: 17-33-6107povyxei lispro (AdmeLOG,HumaLOG) injection 0-15 UnitsInsulin Pump Cart,Auto,Bt,G6/7 (Omnipod 5 G6-G7 Pods (Gen 5)) cartridge (1 source)Start: 08-29-2024 End: 94-83-4936Eigneld Pump Cart,Auto,Bt,G6/7 (Omnipod 5 G6-G7 Pods (Gen 5)) cartridge Discontinued EACH SQ August 29, 2024 12:00am August 29, 2024 1:01bk869 ml insulin, regular, human 1 unt/ml injection (2 sources)InsulinStart: 12-03-2024 End: 38-41-6360yfhycs 400 mg by subcutaneous injection every hour0.2-54 Units/hr (0.2-54 mL/hr), intravenous, Continuous, Starting on 12/03/24 at 0745, Insulin Infusion Orders: Initiating Infusion: Use the patient's current blood glucose result and guidelines in Table A Column 2 to initiate infusion. If subcutaneous rapid-acting insulin is administered with meals, stay in the same column at the same rate for the next 2 hours. Rules for Column changes after i nitiating drip: Determine hourly drip rate by comparing the current blood glucose result to previous blood glucose result with guidelines in Table B to adjust insulin infusion. Rules for Column 7-9 changes: use the patient's current blood glucose result and guidelines in Table B and Table C to adjust high dose insulin infusion. Stop Insulin Infusion for potassium level 3.3 mmol/L or less. *Do notchange insulin drip rate for 2 hours if correction scale given for meal. Notify prescriber if bloodglucose greater than 400 mg/dL. Look-alike/sound-alike medication. Verify indication for use.Start: 03-24-2024 End: 47-53-9714znyywqm (OMNIPAQUE) 300 MG/ML injection (1 source)Start: 10-07-2022 End: 97-77-9647sktsads (OMNIPAQUE) 300 MG/ML injectionlevothyroxine sodium 0.075 mg oral tablet (20 sources)l-ThyroxineStart: 12-03-2024 End: mcg, oral, Daily, First dose on 12/03/24 [...] APPLY TO NEONATES Monitor thyroid function tests weeklyStart: 04-27-2024 End: 68-73-9762nvri 30 mL by mouth once daily75 mcg, Oral, Daily, First dose (after last [...] rate may need adjusted to meet caloric needs.Start: 87-31-9599cyza 1 tablet by mouth once dailySynthroid 75 mcg (0.075 mg) Tab 75 mcg = 1 tab(s), Oral, Daily, # 30 tab(s), Refills(s) 0 Start Date: 04/07/22 Status: OrderedStart: 09-30-2021 End: 43-02-8100Ukvsptjjd 75 mcg Tab 75 mcg = 1 tab(s), Oral, Daily, take on an empty stomach from meds, vitamins, food by 60 minutes, X 90 day(s), # 90 tab(s), Refills(s) 0, Pharmacy: [facility], 158, cm, 09/30/21 14:00:00 EDT, Height/Length Dosing, 112.8, kg, 09/30... Start Date: 09/30/21 Stop Date: 12/29/21 Status: OrderedStart: 06-04-2020 End: 29-41-9593pvgb 75 ug by mouth once daily75 mcg, Oral, Daily, First dose on Thu06/04/20 at 1400 For patients on continuous tube feed: Hold TF from 1 hr before until 1 hr after each dose. TF rate may need adjustment to meet caloric needs.Start: 04-26-2016 End: 84-90-8094buin 1 tablet by mouth once dailyLevothyroxine 75 mcg tablet Active 75 MCG PO Daily July 23, 2018 12:00am Complies with drug therapy Levothyroxine Sodium (LEVOTHYROXINE PO) Take 75 tablets by mouth daily. Active lidocaine 40 mg/ml topical cream (20 sources)Antiarrhythmic, Amide Local AnestheticStart: 09-22-2023 End: 48-57-9511wdkkrugqy (LMX) 4 % cream Apply topically 3 (three) times a day . 90 g 3 09/22/2023 08/02/2024 Discontinued (Therapy completed)Start: 09-07-2018 End: 21-87-2025Frevvhuzu 5 % Ointment Discontinued 1 APPLIC TOPICAL Twice daily as needed for Pain September 06, 2018 11:00pm March 24, 2019 7:31amStart: 55-09-9919Ddhtw: 30-47-6160Betisqtnn 5 % as directed Externally bid prn Jul, Activelidocaine 25 mg/ml / prilocaine 25 mg/ml topical cream (15 sources)Antiarrhythmic, Amide Local AnestheticStart: 03-22-2024 End: 85-45-3432oxrllwgyq-prilocaine (EMLA) cream Indications: Candidiasis Apply topically as needed . 30 g 1 03/22/2024 04/29/2024 Discontinued (Stop Taking at Discharge)Start: 47-96-2990qrgscdboo-prilocaine (EMLA) 2.5-2.5 % cream Apply topically as needed for Pain Apply topically as needed. 0 Activeloperamide hydrochloride 2 mg oral capsule (15 sources)Opioid AgonistStart: 03-22-2024 End: 03-20-3653rskywezpcl (IMODIUM) 2 mg capsule Indications: Diarrhea, unspecified type Take 1 (one) capsule (2 mg total) by mouth as needed for diarrhea (Max dose 7 pills) . 20 capsule 1 03/22/2024 04/29/2024 Discontinued (Stop Taking at Discharge)Start: 07-06-2014 End: 07-60-8396gpyr 1 capsule by mouth four times daily as needed for diarrhea Loperamide 2 MG capsule Discontinued 2 MG PO FOUR TIMES DAILY as needed for Diarrhea July 06, 2014 1:02pm February 22, 2015 7:35pmLORazepam 0.5 mg oral tablet (1 source)Benzodiazepine End: 07-46-8249ayja 1 tablet by mouth every eight hours as needed for anxiety LORazepam (ATIVAN) 0.5 MG tablet Take 0.5 mg by mouth every 8 hours as needed for Anxiety 0 12/08/2021 Discontinued (Therapy completed)lurasidone hydrochloride 20 mg oral tablet (20 sources)Atypical AntipsychoticStart: 11-05-2018 End: 73-05-7299Pvqdebcbsm (Latuda) 20 mg tablet Discontinued January 21, 2019 11:00pm January 29, 2019 10:28ammagnesium hydroxide 80 mg/ml oral suspension (2 sources)Start: 02-18-2023 End: 80-83-2950avlm 2400 mg by mouth once daily as needed for constipation2,400 mg (30 mL), Oral, Daily PRN, constipation, Starting on Thu02/18/23 at 0028 If no bowel movement in 24 hours after Sennosides (SENNA) administration.Start: 06-03-2020 End: 45-87-8359ajmv 2400 mg by mouth once daily as needed for constipation2,400 mg (30 mL), Oral, Daily PRN, constipation, For constipation., Starting 06/03/20 at 847843 ml magnesium sulfate 40 mg/ml injection (1 source)Start: 10-07-2022 End: 87-23-0855shaevjxfm sulfate 2 GM/50ML in 50 mL ivpbmelatonin 5 mg oral tablet (3 sources)Start: 01-12-2024 End: mg, Oral, Nightly PRN, Sleep, Starting on Tu01/12/24 at 1823, If still awake in 1 hour proceed to trazodone (Desyrel)Start: 03-29-2023 End: 15-75-6157mhpb 5 mg by mouth once daily as needed for sleep5 mg, Oral, Nightly PRN, Sleep, Starting on 03/29/23 at 1432 If still awake in 1 hour proceed totrazodone (Desyrel)Start: 02-18-2023 End: 27-51-2495cguo 5 mg by mouth once daily as needed for sleep5 mg, Oral, Nightly PRN, Sleep, Starting on Thu02/18/23 at 0028 If still awake in 1 hour proceed totrazodone (Desyrel)methylPREDNISolone (2 sources)CorticosteroidStart: 31-07-5695Aazx-Medrol 40 mg Mar, 40 mg Start: 74-62-8815Dpmv-Medrol 40 mg Mar, 20 mgmetoclopramide 10 mg oral tablet (10 sources)Dopamine-2 Receptor AntagonistStart: 05-13-2023 End: 46-41-2005ywty 1 tablet by mouth three times daily before mealtime metoclopramide (REGLAN) 10 MG tablet Take 1 (one) tablet (10 mg total) by mouth 3 (three) times a day before meals for 10 days . 30 tablet 0 05/13/2023 08/03/2023 Discontinued (Therapy completed)metroNIDAZOLE 500 mg oral tablet (1 source)Nitroimidazole AntimicrobialStart: 07-06-2014 End: 89-13-9834exkn 1 tablet by mouth three times dailyMetronidazole (Flagyl) 500 MG tablet Discontinued 500 MG PO THREE TIMES DAILY July 06, 2014 1:00am July 06, 2014 1:01pmmicafungin sodium 100 mg injection (9 sources)Echinocandin AntifungalStart: 01-29-2019 End: 74-43-2045Etauonfouv 100 mg recon soln Discontinued 100 MG IV Q24H 10 10 0 January 28, 2019 11:00pm March 24, 2019 7:33am administer over 60 mins midodrine hydrochloride 5 mg oral tablet (1 source)alpha-Adrenergic AgonistStart: 02-19-2023 End: 48-40-8560asmcnncgq (PROAMATINE) tablet 10 mg1 ml morphine sulfate 4 mg/ml cartridge (8 sources)Opioid AgonistStart: 04-26-2024 End: mg, Intravenous, Once, On Thu04/26/24 at 2140, For 1 doseStart: 03-24-2024 End: 19-27-7576Pyipu: 03-29-2023 End: 98-86-4343xklszslz injection 2 mgStart: 02-17-2023 End: 30-10-1299okrabtzt syringe 4 mgStart: 06-03-2020 End: 12-03-0787qebmzyjn syringe 4 mgStart: 06-26-2017 End: 61-47-6602gkvpksdj concentrated 10 mg/0.5 ml oral syringe 10 mg 10 mg, Oral, Once, Thu06/26/17 at 1920, For 1 dose Given 06/26/2017 19:23 EST 10 mgStart: 06-15-2015 End: 10-96-5159qnbj 1 tablet by mouth once dailyMorphine 15 MG tablet extended release Discontinued 15 MG PO DAILY June 15, 2015 1:00am August 29, 2024 1:56pmStart: 03-08-2015 End: 26-54-6714rhpz 1 tablet by mouth twice daily, then take 1 tablet by mouth every twelve hoursmorphine (MS CONTIN) 15 MG 12 hr tablet Take 15 mg by mouth 2 (two) times a day 0 03/08/2015 06/26/2017 DiscontinuedMuscle Relaxant (1 source)Start: 06-20-2015 End: 24-96-1555Zzxekf Relaxant Discontinued DAILY June 20, 2015 1:00am August 29, 2024 1:56pmnaloxone (NARCAN) 4 mg/actuation Calypso (13 sources)Start: 04-14-2024 End: 72-49-9231tfpzsdtk (NARCAN) 4 mg/actuation Calypso Administer 1 spray into one nostril for known or suspected opioid overdose. If patient worsens or does not respond, may repeat in 2-3 minutes. . 2 each 04/14/2024 08/02/2024 Discontinued (Therapy completed)Start: 57-56-9756onylybis (NARCAN) 4 mg/actuation Calypso Administer 1 spray into one nostril for known or suspected opioid overdose. If patient worsens or does not respond, may repeat in 2-3 minutes. . 2 each 04/14/2024Start: 12-11-7882vdbvqpzx (NARCAN) 4 mg/actuation Calypso Administer 1 spray into one nostril for known or suspected opioid overdose. If patient worsens or does not respond, may repeat in 2-3 minutes. . 2 each 04/14/2024 SuspendedStart: 33-42-7022jewojtdn (NARCAN) 4 mg/actuation Calypso Administer 1 spray into one nostril for known or suspected opioid overdose. If patient worsens or does not respond, may repeat in 2-3 minutes. . 2 each 04/14/2024 Activenaloxone (NARCAN) injection 0.1 mg (3 sources)Start: 04-27-2024 End: 05-48-5138sfxsrlpc (NARCAN) injection 0.1 mgStart: 01-12-2024 End: 02-70-6093nglnmdkw (NARCAN) injection 0.1 mgStart: 06-03-2020 End: 05-39-3835navkgkpf (NARCAN) injection 0.1 mgnaratriptan 2.5 mg oral tablet (9 sources)Serotonin-1b and Serotonin-1d Receptor AgonistStart: 07-23-2018 End: 37-97-4735Tzfzcrpunrt 2.5 mg Tablet Discontinued As Directed July 23, 2018 12:00am September 07, 2018 1:57pmStart: 07-23-2018 End: 75-60-6180Dmnriizwwma Discontinued TABLET As Directed July 23, 2018 1:00am September 07, 2018 2:57pm24 hr nicotine 0.583 mg/hr transdermal system (2 sources)Cholinergic Nicotinic AgonistStart: 04-27-2024 End: 98-12-6128rmbxa 1 dose transdermal route once daily1 patch, Transdermal, Administer over 24 Hours, Daily, First dose (after last modification) on Thu06/28/23 at 0900, U/P Listed Hazardous Drug. Waste Must Be Disposed in [employer] Waste ContainerStart: 03-30-2024 End: 39-25-7811atyejsctmfuym 0.4 mg sublingual tablet (4 sources)Nitrate VasodilatorStart: 03-29-2023 End: .4 mg, Sublingual, Every 5 min PRN, chest pain, Starting on 03/29/23 at 1432 For chest pain. May give up to 3 doses. Call physician for chest pain unrelieved by Nitroglycerin, or recurrent chest pain. DO NOT CRUSH OR CHEW.Start: 02-18-2023 End: .4 mg, Sublingual, Every 5 min PRN, chest pain, Starting on Thu02/18/23 at 0028, For 3 doses For chest pain unrelieved by Nitroglycerin or recurrent chest pain, CALL PHYSICIAN DO NOT CRUSH OR CHEW.Start: 02-17-2023 End: 31-42-2736wgwuiCZHEFLZT (NITRO-BID) 2 % ointment 1 inchStart: 06-03-2020 End: .4 mg, Sublingual, Every 5 min PRN, chest pain, Starting 06/03/20 at 1750 For chest pain. May give up to 3 doses. Call physician for chest pain unrelieved by Nitroglycerin, or recurrent chest pain. DO NOT CRUSH OR CHEW.nystatin 100 unt/mg topical powder (20 sources)Polyene AntifungalStart: 03-22-2024 End: 85-14-2856wzvcspav (MYCOSTATIN) powder Indications: Candidiasis Apply topically 2 (two) times a day . 30 g 1 03/22/2024 08/02/2024 Discontinued (Therapy completed)Start: 03-22-2024 End: 77-90-2740Nbjzi: 71-31-2963dthklzod (Mycostatin) ointment 10/06/2022 Active Start: 45-43-5167ivjmrtah (Mycostatin) ointment APPLY OINTMENT TOPICALLY TWICE DAILY FOR 10 DAYS 10/06/2022 ActiveStart: 68-93-1255btdmqhom (Mycostatin) cream 09/26/2022 ActiveStart: 40-83-4475qbsgxqej (Mycostatin) cream APPLY CREAM TOPICALLY TO AFFECTED AREA TWICE DAILY FOR 5 DAYS 09/26/2022 Activenystatin (MYCOSTATIN) 691743 UNIT/GM cream Apply topically 2 times daily Apply topically 2 times daily. 0 Activenystatin (MYCOSTATIN) 040259 UNIT/GM powder Apply topically 4 times daily Apply topically 4 times daily. 0 ActiveOLANZapine 5 mg oral tablet (4 sources)Atypical AntipsychoticStart: 09-16-2023 End: 73-80-0944jpzz 0.5 tablet by mouth twice daily as needed for anxiety OLANZapine (ZYPREXA) 5 MG tablet Take 0.5 (one-half) tablet (2.5 mg total) by mouth 2 (two) times aday As needed for anxiety . 30 tablet 0 09/16/2023 10/07/2023 Discontinued (Non-compliance (Suppress CancelRx Message to Pharmacy)) 2 ml ondansetron 2 mg/ml injection (20 sources)Serotonin-3 Receptor AntagonistStart: 12-04-2024 End: 01-37-6015yqml 4 mg intravenously every six hours as needed for nausea and vomiting4 mg, intravenous, Every 6 hours PRN, nausea, vomiting, Starting on 7/13/25 at 1245, Intravenous administration preferred to be given over 2-5 minutes.Start: 04-27-2024 End: 04-24-9713msvr 4 mg intravenously every six hours as needed for nausea and vomiting4 mg, Intravenous, Every 6 hours PRN, nausea, vomiting, Starting on Thu04/27/24 at 0109Start: 03-25-2024 End: 35-00-1256vgjb 4 mg intravenously every six hours as needed for nausea and vomitingStart: 06-18-2023 End: 18-90-2030npzu 1 tablet by mouth every eight hours as needed for nausea ondansetron (ZOFRAN-ODT) 4 MG disintegrating tablet Dissolve 1 (one) tablet (4 mg total) on top of tongue every 8 (eight) hours as needed for nausea . 20 tablet 05/26/2024 ActiveStart: 04-28-2023 End: 47-01-0036zxjs 1 tablet by mouth every six hours as needed for nausea ondansetron (ZOFRAN) 4 MG tablet Take 1 (one) tablet (4 mg total) by mouth every 6 (six) hours as needed for nausea . 20 tablet 0 04/28/2023 05/06/2023 Discontinued (Therapy completed)Start: 03-29-2023 End: 74-69-4926tdhhdcyxibx (ZOFRAN) injection 4 mgStart: 01-25-2023 End: 34-97-4973ctnh 1 tablet by mouth every eight hours as needed for nausea ondansetron (ZOFRAN-ODT) 4 MG disintegrating tablet Dissolve 1 (one) tablet (4 mg total) on top of tongue every 8 (eight) hours as needed for nausea . 20 tablet 0 01/25/2023 02/20/2023 Discontinued (Stop Taking at Discharge)Start: 10-07-2022 End: 19-38-2572ikfsfxfjzzf (ZOFRAN) 4 MG/2ML injectionStart: 65-99-1713lkwn 1 tablet by mouth every twenty-four hoursZofran 4 MG 1 tablet Orally Once a day for 30 day(s) Mar, ActiveStart: 37-67-3677ppho 1 tablet by mouth every eight hours as needed for nauseaZofran 4 mg Tab 4 mg = 1 tab(s), Oral, q8hr, PRN Nausea/Vomiting, # 6 tab(s), Refills(s) 0, Pharmacy: [place] [id number] Start Date: 11/23/18 Status: OrderedStart: 07-23-2018 End: 69-97-5864acrg 1 tablet by mouth four times daily as needed for nausea and vomitingOndansetron 4 mg Tablet,Disintegrating Discontinued 4 MG PO Four times daily as needed for Nausea And Vomiting July 23, 2018 12:00am September 07, 2018 1:58pmStart: 07-06-2014 End: 77-05-7372zviw 2 tablets by mouth every eight hours as needed for nausea Ondansetron Hcl (Zofran) 4 MG tablet Discontinued 8 MG PO Q8H as needed for Nausea / Vomiting July 06, 2014 2:53pm February 22, 2015 7:34pm ondansetron (ZOFRAN-ODT) disintegrating tablet 4 mg (4 sources)Start: 01-12-2024 End: 11-41-3025dswc 1 tablet by mouth every six hours as needed for nausea and vomitingondansetron (ZOFRAN-ODT) disintegrating tablet 4 mgStart: 03-29-2023 End: 61-30-3693yzav 1 tablet by mouth every six hours as needed for nausea and vomitingondansetron (ZOFRAN-ODT) disintegrating tablet 4 mgStart: 02-18-2023 End: 79-07-7059fgpj 1 tablet by mouth every six hours as needed for nausea and vomitingondansetron (ZOFRAN-ODT) disintegrating tablet 4 mgStart: 06-03-2020 End: 77-66-4162neso 1 tablet by mouth every six hours as neededondansetron (ZOFRAN-ODT) disintegrating tablet 4 mg2 ml orphenadrine citrate 30 mg/ml injection (1 source)Muscle RelaxantStart: 06-26-2017 End: 44-11-1997ctvs 60 mg by intramuscular injection once, then take 60 mg by intramuscular injectionorphenadrine (NORFLEX) injection 60 mg 60 mg, Intramuscular, Once, 06/26/17 at 1920, For 1 dose Given 06/26/2017 19:23 EST 60 mg Left Ventroglutealoxybutynin chloride 5 mg oral tablet (20 sources)Cholinergic Muscarinic AntagonistStart: 10-20-2017 End: 64-99-7572oqsr 1 tablet by mouth twice dailyOxybutynin Chloride 5 mg Tablet Discontinued 5 MG PO Twice daily September 06, 2018 11:00pm March 24, 2019 7:33amoxyCODONE hydrochloride 5 mg oral tablet (2 sources)Opioid AgonistStart: 02-06-2015 End: 61-26-4070khoe 1 tablet by mouth every four hours as neededoxyCODONE (ROXICODONE) immediate release tablet 5 mgpiperacillin 4000 mg / tazobactam 500 mg injection (4 sources)Penicillin-class Antibacterial, beta Lactamase InhibitorStart: 04-26-2024 End: 44.5 g, Intravenous, at 200 mL/hr, Once, On Thu04/26/24 at 2110, For 1 dose, VESICANT, Indication: Skin/Soft Tissue InfectionStart: 03-25-2024 End: 60-12-0767bfdh 3.375 g intravenously every eight hoursStart: 03-24-2024 End: 18-94-3477Kjzhi: 01-12-2024 End: 94-13-1611jyqo 3.375 g intravenously every eight hours3.375 g, Intravenous, at 12.5 mL/hr, Every 8 hours, First dose on Thu01/12/24 at 2000, VESICANT, Ind ication: Skin/Soft Tissue Infectionmicroencapsulated potassium chloride 20 meq extended release oral tablet (19 sources)Start: 03-31-2024 End: 58-51-0496Uazmm: 10-03-2021 End: 83-99-0366irzd 1 tablet by mouth twice daily at mealtimepotassium chloride 20 mEq ER Tab 20 mEq = 1 tab(s), Oral, BID, with a full glass of water with food, X 14 day(s), # 28 tab(s), Refills(s) 0, Pharmacy: [facility], 158, cm, 09/30/21 14:00:00 EDT, Height/Length Dosing, 112.8, kg, 09/30/21 14:00:00 EDT, Weight Dosing Start Date: 10/03/21 Stop Date: 10/17/21 Status: OrderedStart: 08-05-2019 End: 81-18-9447etfmypupe chloride 20 mEq TbER 20 mEq . 0 08/05/2019 06/05/2020 Discontinued (Stop Taking at Discharge)Start: 08-05-2019 End: 71-02-7444ycwy 1 tablet by mouth once dailypotassium chloride 20 mEq tablet Discontinued 20 MEQ PO Daily August 04, 2019 11:00pm August 05, 2019 2:09pm take 1 capsule by mouth every twenty-four hoursPotassium Chloride 10 MEQ 1 capsule with food Orally Once a day Zxbqbf0862 ml potassium chloride 0.02 meq/ml / sodium chloride 9 mg/ml injection (1 source)Start: 12-03-2024 End: 08-72-2353jsww 100 mL intravenously every jaew750 mL/hr, intravenous, Continuous, Starting on 12/03/24 at 0745, For 1 day, For blood glucose gr eater than 250mg/dL. Once IV fluid is changed to dextrose-containing formulation, DO NOT change to fhw-osjylwmq-gcfdarasch IV fluid if blood glucose exceeds 250 mg/dL.QUEtiapine 200 mg oral tablet (20 sources)Atypical AntipsychoticStart: 12-03-2024 End: 37-03-0383jjgn 800 mg by mouth once mg, oral, Nightly, First dose on 12/03/24 at 2200, Look-alike/sound-alike medication - verify indication for use.Start: 99-96-2833Dancvvixcf 400 mg tablet Active MG TABLET August 29, 2024 12:00amStart: 04-27-2024 End: 05-85-1181ushy 800 mg by mouth once mg, Oral, Nightly, First dose (after last modification) on Thu04/27/24 at 0200, May cause QT interval prolongation.Start: 03-25-2024 End: 81-08-7566Ientn: 01-12-2024 End: 58-32-5194sctf 800 mg by mouth once iahkw894 mg, Oral, Nightly, First dose on Thu01/12/24 at 2300, May cause QT interval prolongation.Start: 05-06-2023 End: 91-18-9101uush 1 tablet by mouth once dailyQUEtiapine (SEROQUEL) 200 MG tablet Indications: Bipolar 1 disorder (HCC) , Insomnia, unspecified type Take 1 (one) tablet (200 mg total) by mouth nightly . 30 tablet 2 05/06/2023 08/03/2023 Discontinued (Dose adjustment)Start: 03-29-2023 End: 67-52-7669pffg 400 mg by mouth once gcxau876 mg, Oral, Nightly, First dose on Thu03/29/23 at 2100 May cause QT interval prolongation.Start: 02-20-2023 End: 35-92-2820zhvd 1 tablet by mouth once dailyQUEtiapine (SEROQUEL) 400 MG tablet Indications: Bipolar 1 disorder (HCC) , Insomnia, unspecified type Take 1 (one) tablet (400 mg total) by mouth nightly . 30 tablet 2 05/06/2023 08/03/2023 Discontinued (Reorder (Suppress CancelRx Message to Pharmacy))Start: 02-19-2023 End: 68-72-4912APFprclltp (SEROQUEL) tablet 200 mgStart: 02-18-2023 End: 08-90-6776ucxr 800 mg by mouth once cctmo495 mg, Oral, Nightly, First dose on Thu02/18/23 at 0400 May cause QT interval prolongation.Start: 10-06-2022 End: 40-34-3485TJXcvqqwfx (SEROQUEL) tabletStart: 02-21-2022 End: 23-03-2793woug 2 tablets by mouth once daily in the eveningSEROquel XR 400 mg Tab-ER 800 mg = 2 tab(s), Oral, qPM, X 4 day(s), # 8 tab(s), Refills(s) 0, Pharmacy: [facility], 157, cm, 02/21/22 14:56:00 EDT, Height/Length Dosing, 115, kg, 02/21/22 14:56:00 EDT, Weight Dosing Start Date: 02/21/22 Stop Date: 02/25/22 Status: OrderedStart: 06-04-2020 End: 75-88-6090ljsx 800 mg by mouth once mg, Oral, Nightly, First dose on Thu06/04/20 at 2100 May cause QT interval prolongation.Start: 08-04-2019 End: 74-63-2817nexu 2 tablets by mouth at bedtimeQuetiapine 400 mg tablet Active 800 MG PO Bedtime August 03, 2019 11:00pm Complies with drug therapyStart: 00-25-1461mstm 800 mg by mouth at bedtimeQuetiapine Active 800 MG PO Bedtime August 04, 2019 12:00amStart: 01-29-2019 End: 38-04-8007ilzi 2 tablets by mouth once daily at bedtimeQuetiapine 25 mg Tablet Discontinued 50 MG PO Daily at bedtime 0 0 January 28, 2019 11:00pm August 04, 2019 7:20pmStart: 01-29-2019 End: 99-76-6970jowe 50 mg by mouth once daily at bedtimeQuetiapine Discontinued 50 MG PO Daily at bedtime 0 January 29, 2019 12:00am August 04, 2019 8:20pm Start: 07-23-2018 End: 61-83-0229mbqy 600 mg by mouth at bedtimeQuetiapine Discontinued 600 MG PO Bedtime July 23, 2018 1:00am January 29, 2019 11:28amStart: 10-20-2017 End: 30-92-5935jwqg 2 tablets by mouth at bedtimeQuetiapine 300 mg tablet Discontinued 600 MG PO Bedtime July 23, 2018 12:00am January 29, 2019 10:28amStart: 10-54-5830BBFeintkff 50 MG Tab Indications: Atrial fibrillation, unspecified type , SSS (sick sinus syndrome)take 1 tablet by mouth at bedtime.. 30 tablet 01/21/2017 Activetake 4 tablets by mouth once dailyQUEtiapine (SEROquel) 200 mg tablet Take 4 tablets (800 mg total) by mouth nightly. Active take 1 tablet by mouth once dailyQUEtiapine (SEROQUEL XR) 50 MG extended release tablet Take 50 mg by mouth nightly 0 Activetake 1 tablet by mouth every twenty- four hoursQUEtiapine Fumarate 300 MG 1 tablet Orally Once a day for 30 day(s) Activeregadenoson (LEXISCAN) injection 0.4 mg (1 source)Start: 02-18-2023 End: 57-97-7090eabfmqzmynr (LEXISCAN) injection 0.4 mgrimegepant 75 mg disintegrating oral tablet (3 sources)Start: 02-11-2024 End: 34-69-7665prlob 1 tablet topically once daily as neededRimegepant (NURTEC) 75 mg ODT Indications: Chronic nonintractable headache, unspecified headache typ e Dissolve 1 (one) tablet (75 mg total) on top of tongue daily as needed (migraine) . 4 tablet 02/11/2024 03/22/2024 Discontinued (Therapy completed)72 hr scopolamine 0.0139 mg/hr transdermal system (1 source)AnticholinergicStart: 03-25-2024 End: 26-92-9471ykkeqdoeyh, mcfp 8.6 mg oral tablet (4 sources)Start: 04-27-2024 End: 10-97-0742kzii 1 tablet by mouth once daily17.2 mg (2 tablet), Oral, Nightly, First dose on Thu04/27/24 at 0200, For 5 daysStart: 01-12-2024 End: 42-29-2376Csoov: 03-29-2023 End: 86-99-2468opwt 1 tablet by mouth twice daily as needed for constipation8.6 mg (1 tablet), Oral, 2 times daily PRN, constipation, Starting on Thu03/29/23 at 1432Start: 02-18-2023 End: 93-56-4902jzmo 1 tablet by mouth twice daily as needed for constipation8.6 mg (1 tablet), Oral, 2 times daily PRN, constipation, Starting on Thu02/18/23 at 0028Sodium Chloride (20 sources)Start: 12-05-2024 End: 59-97-1167rztppc chloride 0.9 % flush 20 mLStart: 12-03-2024 End: 90-05-1597idqs 100 mL intravenously every aqve198 mL/hr, intravenous, Continuous, Starting on 12/03/24 at 1715, For 1 dayStart: 12-03-2024 End: ,000 mL, intravenous, at 492 mL/hr, Administer over 122 Minutes, Once, On 12/03/24 at 1715, For1 doseStart: 12-03-2024 End: mL, intravenous, Every 12 hours scheduled, First dose on 12/03/24 at 0230Start: 12-03-2024 End: mL, intravenous, As needed, line care, before and after each intermittent use, Starting on 12/03/24 at 0216Start: 12-03-2024 End: 62-53-8945kgtn 25 mL intravenously every hour as sfmjna63 mL, intravenous, at 100 mL/hr, Administer over 15 Minutes, As needed, line care, line care after IVPB administration, Starting on 12/03/24 at 0216Start: 04-29-2024 End: 85-03-4213Fqsjifuk on Thu04/29/24 at 1345, For 1 dose, YVETTE CANCHOLA: kamlesh overrideStart: 04-26-2024 End: 13-64-0415hzxp 100 mL intravenously every nnjj267 mL/hr, Intravenous, Continuous, Starting on Thu04/26/24 at 2350, For 10 hoursStart: 03-26-2024 End: 58-06-1754Htjip: 03-24-2024 End: 66-75-6669Dudnw: 01-12-2024 End: 82-48-0336ydofsw chloride (PF) (NS) flush 5 mLStart: 01-12-2024 End: 54-82-8860014 mL, Intravenous, at 1,875 mL/hr, Once, On 01/16/24 at 0630, For 1 doseStart: 03-29-2023 End: 44-07-7080dtkduz chloride (PF) (NS) flush 5 mLStart: 02-19-2023 End: 72-89-1999qfexko chloride 0.9% (NS)Start: 02-19-2023 End: 78-48-3365jeofxl chloride 0.9% (NS) bolus 500 mLStart: 02-18-2023 End: 64-65-1844kwrgiq chloride (PF) (NS) flush 5 mLStart: 06-03-2020 End: 57-50-9821eqop 100 mL intravenous route every uvny970 mL/hr, Intravenous, Continuous, Starting 06/03/20 at 1845Start: 06-03-2020 End: 28-12-6664bonktd chloride (PF) (NS) flush 5 mLStart: 09-22-2019 End: 26-06-1067Sarnaf Chloride (Saline Wound Wash) 0.9 % aerosol,spray Discontinued 1 APPLIC TOPICAL Twice daily 210 September 21, 2019 11:00pm September 03, 2021 1:45pmsubcutaneous insulin pump Misc (1 source)Start: 01-12-2024 End: 24-37-2518Uqtgficddqzgs, Continuous, Starting on Thu01/12/24 at 2215, Select [...] mg / trimethoprim 160 mg oral tablet (13 sources)Dihydrofolate Reductase Inhibitor Antibacterial, Sulfonamide AntimicrobialStart: 07-05-2024 End: 67-60-7613dzgz 1 tablet by mouth twice dailysulfamethoxazole-trimethoprim (BACTRIM DS,SEPTRA DS) 800-160 mg per tablet Take 1 (one) tablet by mouth 2 (two) times a day . 07/05/2024 07/15/2024 ExpiredStart: 10-24-2022 End: 51-12-6228tjqzobdjilygjvxh-trimethoprim (Bactrim DS) 800-160 MG per tablet 10/24/2022 ActiveStart: 09-15-2022 End: 96-28-4829lmrz 1 tablet by mouth every twelve hoursBactrim D.S. 800 mg-160 mg Tab 1 tab(s), Oral, q12hr, 11 tab(s), Refill(s) 0, START TONIGHT; drink p lenty of fluids, [facility], 157, cm, 09/12/22 13:52:00 EDT, Height/Length Dosing, 113, kg, 09/12/22 13:52:00 EDT, Weight Dosing Start Date: 09/15/22 Stop Date: 09/20/22 Status: OrderedStart: 05-15-2022 End: 07-00-7913hznd 1 tablet by mouth twice dailyBactrim D.S. 800 mg-160 mg Tab 1 tab(s), Oral, BID for 7 day(s), 14 tab(s), Refill(s) 0, [facility], 157, cm, 05/15/22 16:23:00 EST, Height/Length Dosing, 113, kg, 05/15/22 16:23:00 EST, Weight Dosing Start Date: 05/15/22 Stop Date: 05/22/22 Status: Orderedtamsulosin hydrochloride 0.4 mg oral capsule (1 source)alpha-Adrenergic BlockerStart: 04-09-2022 End: 89-88-1011Wgjpbw 0.4 mg Cap 0.4 mg = 1 cap(s), Cap, Oral, Start date 04/09/22 9:00:00 EST, 04/08/22 5:48:00 EST Start Date: 04/09/22 Stop Date: 04/09/22 Status: Completedtechnetium (Tc-99m) sestamibi (CARDIOLITE) injection 30.4 millicurie (1 source)Start: 02-18-2023 End: 99-42-1626snulyidwvv (Tc-99m) sestamibi (CARDIOLITE) injection 30.4 millicurietechnetium (Tc-99m) sestamibi (CARDIOLITE) injection 8-25 millicurie (1 source)Start: 02-18-2023 End: 98-76-1749sqovjmmulq (Tc-99m) sestamibi (CARDIOLITE) injection 8-25 millicurietraMADol hydrochloride 50 mg oral tablet (4 sources)Opioid AgonistStart: 11-28-2022 End: 03-16-0654nved 1 tablet by mouth every eight hours as needed for pain Tramadol 50 mg tablet Discontinued 50 MG PO Q8H as needed for pain 7 3 November 28, 2022 12:00am 2024 1:56pmStart: 13-64-5636jcqx 1 tablet by mouth once daily as needed for paintraMADOL 50 mg Tab 50 mg = 1 tab(s), Oral, Daily, PRN for pain, # 30 tab(s), Refills(s) 0 Start Date: 09/12/22 Status: Orderedurea 400 mg/ml topical cream (7 sources)Start: 10-23-2023 End: 72-94-2998apcm (CARMOL) 40 % Crea Apply 1 application. topically 2 (two) times a day . 85 g 3 10/23/2023 11/22/2023 ExpiredUrea (CARMOL 40 EX) Apply topically. Activedivalproex sodium 500 mg delayed release oral tablet (20 sources)Mood Stabilizer, Anti-epileptic AgentStart: 01-12-2024 End: 52-72-8763kztt 500 mg by mouth every twelve uyere519 mg, Oral, Every 12 hours scheduled, First dose on Thu01/12/24 at 2200, CATEGORY D HAZARDOUS DRUG use safe handling precautions. Use reference link to view PPE guidelines. DO NOT CRUSH OR CHEW.Start: 06-03-2020 End: 17-12-7994oydsrhdmgn (DEPAKOTE) delayed release (DR) tablet 500 mgStart: 33-40-9109exwl 1 tablet by mouth twice dailydivalproex sodium 500 mg ER Tab 500 mg = 1 tab(s), Oral, BID, Refills(s) 0, Seizure Start Date: 11/05/18 Status: OrderedStart: 09-09-2018 End: 21-49-5753gkdp 1 tablet by mouth twice dailyDivalproex 500 mg Tablet,Delayed Release (Dr/Ec) Discontinued 500 MG PO Twice daily 60 30 0 September 08, 2018 11:00pm August 20, 2022 2:10am Intractable seizure disorder Epilepsy, unspecified, intractable, without status epilepticusStart: 09-07-2018 End: 24-84-1334wttk 1 tablet by mouth twice dailyDivalproex 250 mg Tablet,Delayed Release (Dr/Ec) Discontinued 250 MG PO Twice daily September 06, 2018 11:00pm September 09, 2018 12:07js435 ml vancomycin 5 mg/ml injection (10 sources)Glycopeptide AntibacterialStart: 03-25-2024 End: 75-90-1651swxg 1250 mg intravenously every twenty-four hoursStart: 01-29-2019 End: 91-45-9321deud 1 g intravenously every eight hoursVancomycin 1.5 gram recon soln Discontinued 1 GM IV Q8H 10 10 January 28, 2019 11:00pm 2018 7:31amStart: 01-29-2019 End: 67-59-1418agyk 1 g intravenously every eight hoursVancomycin Discontinued 1 GM IV Q8H 10 10 January 29, 2019 12:00am March 24, 2019 8:31am24 hr venlafaxine 150 mg extended release oral capsule (20 sources)Serotonin and Norepinephrine Reuptake InhibitorStart: 59-17-7892zwxn 1 capsule by mouth once dailyvenlafaxine 150 mg Cap-ER 150 mg = 1 cap(s), Oral, Daily, Depression Start Date: 10/20/17 Status: OrderedStart: 10-20-2017 End: 50-98-4530vptg 1 capsule by mouth once dailyVenlafaxine 150 mg capsule,extended release 24hr Discontinued 150 MG PO Daily July 23, 2018 12:00am March 24, 2019 7:33amvitamin b12 1 mg oral tablet (20 sources)Vitamin B04Shesf: 09-03-2023 End: 24-09-0541hnso 1 tablet by mouth once dailycyanocobalamin (B-12) 1000 MCG tablet Indications: [facility] Take 1 (one) tablet (1,000 mcg total) by mouth daily Reasons: [facility]. 90 tablet 1 02/11/2024 03/22/2024 Discontinued (Therapy completed)take 1 tablet by mouth once dailycyanocobalamin 500 MCG tablet Take 1 tablet by mouth daily. Activezinc oxide 50 mg/ml topical cream (1 source)Start: 08-02-2024 End: 22-42-0881nfkt oxide 5 % Crea Apply 1 Application topically daily . 177.4 mL 08/02/2024 08/02/2024 Discontinued (Therapy completed)zonisamide 100 mg oral capsule (10 sources)Anti-epileptic AgentStart: 07-23-2018 End: 45-99-7702ovir 200 mg by mouth at bedtimeZonisamide 200 MG Oral Bedtime July 23, 2018 DiscontinuedStart: 07-23-2018 End: 21-24-1289hzqn 1 capsule by mouth at bedtimeZonisamide (Zonegran) 100 mg Capsule Discontinued 200 MG PO Bedtime July 23, 2018 12:00am September 07, 2018 2:00pmtake 2 capsules by mouth once dailyzonisamide (ZONEGRAN) 100 MG capsule Take 200 mg by mouth daily 0 Active (6 sources)Start: 04-01-2024 End: 90-53-1273Tgaur: 03-27-2024 End: 04-04-2024[Order 1 Start] Name: insulin lispro (AdmeLOG,HumaLOG) injection 0-15 Units Signed Summary: 0-15 Units, Subcutaneous, At bedtime, First dose on Thu03/27/24 at 2100, IF initial POC glucose is greater than 250, administer insulin as directed and re-check POC glucose no sooner than 2 hours after admini stration. THEN notify provider if POC glucose is [...] End] [Order 2 Start] Name: Notify physician Sig piper Summary: Routine, Until discontinued, Starting on Thu03/27/24 at 1016, Until Specified, Other: IF HS POC Glucose RE-CHECK Greater than 250, If initial HS POC glucose is greater than 250, administer insulin as directed and re-check POC glucose no sooner than 2 hours after administration. IF RE-CHECK POC glucose is still greater than 250, notify provider. [Order 2 End]Start: 03-25-2024 End: 04-04-2024[Order 1 Start] Name: naloxone (NARCAN) injection 0.1 mg Signed Summary: 0.1 [...] IV Push over 30 seconds. [Order 3 End]Start: 03-25-2024 End: 04-04-2024[Order 1 Start] Name: Saline lock IV Signed [...] mL/hr, Intravenous, As needed, To flush line afterIV infusions when no maintenance IV ordered or a compatibility issue. Infuse 20ml at the same rate as the secondary infusion, Starting on Thu03/25/24 at 0134, Run as Primary IV. NOT intended for KVO.[Order 4 End]Start: 03-24-2024 End: 47-08-3842Sothf: 03-24-2024 End: 04-04-2024[Order 1 Start] Name: Insert peripheral IV Signed Summary: SEKOU, Once, On Thu03/24/24 at 2024, For1 occurrence [Order 1 End] [Order 2 Start] Name: Saline lock IV Signed Summary: SEKOU, Once, On Thu03/24/24 at 2024, For 1 occurrence [Order 2 End] [Order 3 Start] Name: sodium chloride (PF) (NS) flush 5 mL Signed Summary: 5 mL, Intravenous, As needed, line care, Starting on Thu03/24/24 at 2020 [Order 3 End] [Order 4 Start] Name: [...] [Order 4 End] Problems Active Problems Problem ClassificationProblemDateDocumented DateEpisodic/ChronicAcute and unspecified renal failure (2 sources)Acute injury of kidney; Translations: [SOLO (acute kidney injury)] Onset: 206903-37-5700Htmfj bronchitis (1 source)Acute bronchitis; Translations: [Acute bronchitis, unspecified]Onset: 57-82-8159SranwkigFmlut cerebrovascular disease (1 source)Lacunar infarction; Translations: [Other cerebral infarction due to occlusion or stenosis of small artery]51-13-5129KhbuvvrHzhvv myocardial infarction (2 sources)Non-ST elevation (NSTEMI) myocardial infarction; Translations: [Non- ST elevation (NSTEMI) myocardial infarction]Onset: 27-70-2783ApeeuwqTpwpkcgunm disorders (1 source)Family tension; Translations: [Reaction to severe stress, unspecified] ChronicAdministrative/social admission (4 sources)Encounter for issue of repeat prescription; Translations: [Drug seeking behavior ]Onset: 812569-80-1424XsrqiawqUcyxdrc disorders (20 sources)Anxiety; Translations: [Psychogenic syncope]Onset: 02-16-2008 74-37-2727JhjleqgBugnkongp and vision defects (20 sources)Visual impairment; Translations: [Unqualified visual loss, left eye, normal vision right eye]Onset: 705711-40-2264BbmyjlgNfwpknapg and vision defects (7 sources)Eye / vision finding; Translations: [Unspecified visual disturbance] Onset: 397970-36-9168UhychdinXyvsa (1 source)BurnEpisodicCalculus of urinary tract (20 sources)Kidney iadvt19-91-9135RtdkmymsUdokmnf dysrhythmias (20 sources)Sustained ventricular tachycardia; Translations: [Sinus node dysfunction]Onset: 902353-01-7989TozhtiwRgwegmdq (1 source)Artificial lens present; Translations: [Presence of intraocular lens] 82-03-3795OcdpoolCbrrtov kidney disease (20 sources)Chronic kidney disease; Translations: [Chronic kidney disease, unspecified]Onset: 646215-16-3088YilitkmZyrpqrs obstructive pulmonary disease and bronchiectasis (20 sources)Acute exacerbation of chronic obstructive airways disease; Translations: [Chronic obstructive pulmonary disease with (acute) exacerbation] Onset: 90-77-7425IddpozcBrrjtjq ulcer of skin (10 sources)Non-pressure chronic ulcer of other part of left foot with unspecified severity; Translations: [Non-pressure chronic ulcer of other part of right foot with fat layer exposed]Onset: 965887-62-3643BnwgbsgLfxcvuztzh disorders (20 sources)Cardiac pacemaker in situ; Translations: [Presence of cardiac pacemaker]Onset: 116810-17-7238OuusekiAngnwmolpz heart failure; nonhypertensive (17 sources)Heart failure; Translations: [Heart failure, unspecified]Onset: 218068-48-7890PxcavfhXtmjvrmu atherosclerosis and other heart disease (2 sources)Coronary atherosclerosis; Translations: [Atherosclerotic heart disease of [place] coronary artery without angina pectoris]Onset: 09-02-2021 ChronicDiabetes mellitus with complications (20 sources)Type II diabetes mellitus uncontrolled; Translations: [Neuropathy due to diabetes mellitus]Onset: 11-30-2014 Resolved: 698186-31-9978CqiadplWmjfjvcw mellitus without complication (20 sources)Type 2 diabetes mellitus; Translations: [Diabetes mellitus]Onset: 992384-06-2322WcbljrqEommxdmgq of lipid metabolism (20 sources)Dyslipidemia; Translations: [Hyperlipidemia]Onset: 03-31-2017 11-29-4774AbgxwdsN Codes: Fall (4 sources)Unspecified fall, initial encounter; Translations: [Fall]Onset: 223426-11-6265CjbuimviRgeyssuh; convulsions (9 sources)Seizure disorder; Translations: [Epilepsy, unspecified, not intractable, without status epilepticus]Onset: 016673-91-5352Qvnigua Epilepsy; convulsions (20 sources)Seizure; Translations: [1 to 12 seizures a year]Onset: 06-13-2008 Resolved: 679446-17-9053VdlwvhdaWgqksev on above:last 2 weeks just staring spells has been 6last 2 weeks just staring spells has been 6Esophageal disorders (20 sources)Gastroesophageal reflux disease; Translations: [Gastroesophageal reflux disease without esophagitis]Onset: 612323-38-5526CejdtxwYdepchdwd hypertension (20 sources)Hypertensive disorder; Translations: [Essential hypertension]Onset: 978522-66-7363XlifmxnToocucxpt and duodenitis (2 sources)Gastritis; Translations: [Gastritis, unspecified, without bleeding] EpisodicGastroduodenal ulcer (except hemorrhage) (20 sources)Gastric qjilk32-91-0940CacnmigNrwnvcnziylvx symptoms and ill-defined conditions (20 sources)Urinary incontinence; Translations: [Unspecified urinary incontinence]Onset: 491930-46-4088WfqaoqvXsslsmaurukso symptoms and ill- defined conditions (20 sources)Dysuria; Translations: [Personal history of urinary (tract) infections]Onset: 759519-49-9249PfjwectmDgqoschn (1 source)Ocular hypertension, left eye; Translations: [Ocular hypertension] 18-09-7273EaguwduBwegymoh; including migraine (1 source)Migraine, unspecified, not intractable, without status migrainosus; Translations: [MIGRAINE UNS NOTINTRACT W/O SM]Onset: 98-41-3983CxyssdrCcpgkwpk; including migraine (6 sources)Headache; including migraine; Translations: [HEADACHE UNSPECIFIED] Onset: 95-81-6619Qkdlstbagxpg with complications and secondary hypertension (20 sources)Hypertensive heart failure; Translations: [Hypertensive heart disease with heart failure]Onset: 487400-24-0522PcnxorpZxdvtzlxu arthritis and osteomyelitis (except that caused by tuberculosis or sexually transmitted di sease) (20 sources)Osteomyelitis of forefoot; Translations: [Osteomyelitis, unspecified]Onset: 067022-29-6022GfebdmwIumt effects of cerebrovascular disease (4 sources)Neurogenic bladder as late effect of cerebrovascular accident; Translations: [Other sequelae of cerebral infarction]01-84-9461KkczehqHdmcbnu and fatigue (20 sources)Left hemiparesis; Translations: [Weakness]Onset: 03-04-2022 18-76-2046WxncloyeRptsmhlofq disorders (1 source)Hormone replacement therapy; Translations: [HORMONE REPLACEMENT THERAPY]Onset: 90-13-1287GjcgslhyGmaldwfbkyziw mental health disorders (5 sources)Confusional state; 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]Onset: 34-12-7535CkgoxrrBoui disorders (20 sources)Bipolar I disorder; Translations: [Bipolar disorder]Onset: 874477-73-0915CqaszubHlcqxmnxm of unspecified nature or uncertain behavior (20 sources)Neoplasm of dhaksy53-75-0617YpopaymvFvsbofvhvpozs gastroenteritis (1 source)Gastroenteritis; Translations: [Noninfective gastroenteritis and colitis, unspecified]EpisodicNutritional deficiencies (20 sources)Vitamin D deficiency; Translations: [Vitamin D deficiency, unspecified]Onset: 244087-97-1802BxynztaNbpl wounds of extremities (3 sources)Laceration of finger without foreign body; Translations: [Laceration without foreign body of left index finger without damage to nail, initial encounter]Onset: 79-02-9528EhavufhdXrob wounds of head; neck; and trunk (2 sources)Unspecified open wound of abdominal wall, unspecified quadrant without penetration into peritoneal cavity, initial encounter; Translations: [Wound dehiscence]Onset: 931783-64-7865LnctpmevGfjjbmvmyzvlnr (20 sources)Arthritis; Translations: [Osteoarthritis]Onset: ChronicOther aftercare (4 sources)Long-term current use of insulin; Translations: [care home (current) use of insulin]15-68-1061WkrjbklmXahcr aftercare (1 source)terminal operator (current) use of aspirin; Translations: [CARE HOME CURRENT USE OF ASPIRIN]Onset: 92-95-4852JdjczidjDrprf aftercare (1 source)terminal operator (current) use of oral hypoglycemic drugs; Translations: [RANGE MANAGEMENT SPECIALIST USE ORAL HYPOGLYCEMIC DX]Onset: 24-32-1923WdadjizkHpkpn circulatory disease (2 sources)Device in situ; Translations: [Presence of other vascular implants and grafts]ChronicOther circulatory disease (4 sources)Hypothenar hammer syndrome; Translations: [Other specified peripheral vascular diseases]Onset: 984202-14-5614LkwicebHymnt circulatory disease (1 source)Other specified peripheral vascular diseases; Translations: [Other specified peripheral vascular diseases]Onset: 53-72-9277JxddajqDmusg circulatory disease (1 source)History of cardiac arrest; Translations: [Personal history of sudden cardiac arrest]Onset: 75-86-6365HncaokcqGqetk circulatory disease (1 source)History of cerebrovascular disease; Translations: [Personal history of other diseases of the circulatory system]Onset: 89-27-5267BmkenjbsWobkr circulatory disease (1 source)History of transient ischemic attack; Translations: [Personal history of transient ischemic attack (TIA), and cerebral infarction without residual deficits]Onset: 76-44-6591FekstqitCqika connective tissue disease (20 sources)Plantar nznjezvls91-79-6584CdesmtdgJosqf connective tissue disease (1 source)Plantar fascial fibromatosis; Translations: [Plantar fascial fibromatosis]Onset: 71-36-0720EdzhvomcTbmkw connective tissue disease (2 sources)Recurrent falls ; Translations: [Repeated falls]EpisodicOther connective tissue disease (7 sources)Pain in left toe(s); Translations: [Pain in limb]Onset: 09-07-2022 09-24-7635MnpnlmjfPcccl connective tissue disease (1 source)Musculoskeletal symptom; Translations: [Other symptoms and signs involving the musculoskeletal system]Onset: 07-29-8055RahqvzuxLoaen connective tissue disease (1 source)Muscle weakness of limb; Translations: [Other symptoms and signs involving the musculoskeletal system]EpisodicOther connective tissue disease (1 source)Fibromyalgia; Translations: [FIBROMYALGIA]Onset: 42-66-6388Kllaukoj Other connective tissue disease (3 sources)Neuralgia and neuritis, unspecified; Translations: [NEURALGIA AND NEURITIS UNSPECIFIED]Onset: 30-42-9819PpsybarqHqxql connective tissue disease (20 sources)Disorder of lower extremity; Translations: [Other muscle spasm] Onset: 874292-66-0383AjsaolvoFzdcj connective tissue disease (1 source)Pain of left lower leg; Translations: [Pain in left lower leg] 04-47-0151LddzkgceRdiia connective tissue disease (1 source)Pain of toe of left foot; Translations: [Pain in left toe(s)] 98-88-4980IeadpdlkIvnlr connective tissue disease (1 source)Pain of left hand; Translations: [Pain in left hand]60-89-2712Ybmbjycm Other connective tissue disease (2 sources)Pain in left hand; Translations: [Pain in left hand]Onset: 02-23-2025 EpisodicOther ear and sense organ disorders (1 source)Hearing loss in left ear; Translations: [Unspecified hearing loss, left ear]78-77-8214KxxwxvcRcgsr eye disorders (1 source)StaringChronicOther eye disorders (1 source)Disorder of lacrimal gland; Translations: [Dry eye syndrome of bilateral lacrimal glands]17-01-4814VtyboqfjAokee gastrointestinal disorders (20 sources)Diarrhea; Translations: [Diarrhea, unspecified]Onset: 05-25-2015 13-34-9237QbpyujgyImhjy gastrointestinal disorders (2 sources)Dysphagia; Translations: [Dysphagia, unspecified]EpisodicOther gastrointestinal disorders (4 sources)Constipation, unspecified; Translations: [CONSTIPATION UNSPECIFIED] Onset: 98-07-9316SmjgnkviXahgy hereditary and degenerative nervous system conditions (20 sources)Restless legs; Translations: [Restless legs syndrome]Onset: 516094-71-0716SwzeeanKjdbm hereditary and degenerative nervous system conditions (1 source)Restless legs syndrome; Translations: [RESTLESS LEGS SYNDROME]Onset: 63-32-3825RhfyyhkTftsi infections (4 sources)Personal history of Methicillin resistant Staphylococcus aureus infection; Translations: [History of MRSA infection]Onset: EpisodicOther injuries and conditions due to external causes (1 source)Systemic inflammatory response syndrome; Translations: [Systemic inflammatory response syndrome (SIRS) of non-infectious origin without acute organ dysfunction]18-82-7820GuhltyzaJoosz lower respiratory disease (20 sources)Cough; Translations: [Subacute cough]Onset: EpisodicOther lower respiratory disease (1 source)Pleuritic pain; Translations: [Pleurodynia]74-93-3218UnbaupliUuavw nervous system disorders (20 sources)Chronic pain; Translations: [Other chronic pain]Onset: 09-30-2021 ChronicOther nervous system disorders (2 sources)Neuropathy; Translations: [Polyneuropathy, unspecified]ChronicOther nervous system disorders (18 sources)PolyneuropathyOnset: 436607-53-6849UqclqavQbxxb nervous system disorders (1 source)Disorder of brain; Translations: [Encephalopathy, unspecified]Onset: 90-04-1688UienpktMdlll nervous system disorders (9 sources)Other chronic pain; Translations: [OTHER CHRONIC PAIN]Onset: 08-43-6639JljvqhcBltmx nervous system disorders (20 sources)Chronic pain syndrome; Translations: [Chronic pain syndrome]Onset: 980182-38-6637ZevukrpRnuja nervous system disorders (1 source)Chronic pain syndrome; Translations: [Chronic pain syndrome]Onset: 24-95-3953RlzvugrGayun nervous system disorders (8 sources)Abnormal gait; Translations: [Unspecified abnormalities of gait and mobility]56-04-4494IldiejyoHlqml nervous system disorders (1 source)H/O: brain disorderEpisodicOther nervous system disorders (1 source)Skin sensation disturbance; Translations: [Anesthesia of skin]Episodic Other non-traumatic joint disorders (20 sources)Ankle usuhwuwwutf52-91-1955XqbewerwCtygb non-traumatic joint disorders (20 sources)Instability of joint of left ankle; Translations: [Other instability, left ankle]Onset: 10-98-5987DkqmwajsTiqec non-traumatic joint disorders (20 sources)Pain in right knee; Translations: [Pain in joint, lower leg]Onset: 073215-56-9875QhbrxmcyRqmtj nutritional; endocrine; and metabolic disorders (5 sources)Hypomagnesemia; Translations: [Disorders of magnesium metabolism] Onset: 563800-22-4622GncfunyNkwux nutritional; endocrine; and metabolic disorders (20 sources)Obesity; Translations: [Obesity, unspecified]Onset: 11-04-2021 70-95-8677EenljjgRkksg nutritional; endocrine; and metabolic disorders (20 sources)Morbid obesity; Translations: [Morbid (severe) obesity due to excess calories]Onset: 30-94-3466ViprsnrIjgjt nutritional; endocrine; and metabolic disorders (20 sources)Body mass index 40+ - severely obese; Translations: [Body mass index (BMI) 45.0-49.9, adult]Onset: 99-13-1326PiqbtgrZbvgg nutritional; endocrine; and metabolic disorders (2 sources)Obese class II; Translations: [Body mass index (BMI) 36.0-36.9, adult]ChronicOther nutritional; endocrine; and metabolic disorders (1 source)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; Translations: [Lactose intolerance, unspecified]Onset: 51-40-5508MottatfNdame nutritional; endocrine; and metabolic disorders (15 sources)Intolerance to grpbjab38-21-4701QqyvhcaTiyew nutritional; endocrine; and metabolic disorders (6 sources)Hypomagnesemia; Translations: [Hypomagnesemia]Onset: 01-09-2022 ChronicOther nutritional; endocrine; and metabolic disorders (4 sources)Hypophosphatemia; Translations: [Other disorders of phosphorus metabolism]18-02-9915IpjaeybJajmx nutritional; endocrine; and metabolic disorders (3 sources)Other disorders of phosphorus metabolism; Translations: [Disorders of phosphorus metabolism]45-99-2617YbihjdpQipsk nutritional; endocrine; and metabolic disorders (1 source)Morbid (severe) obesity due to excess calories; Translations: [MORBID SEVERE OBES D/T EXCESS SANJAY]Onset: 67-53-5112NrbtnjeGpwau nutritional; endocrine; and metabolic disorders (1 source)Body mass index (BMI) 45.0-49.9, adult; Translations: [BODY MASS INDEX BMI 45.0-49.9 ADULT]Onset: 12-12-1843InfowiwScfrt nutritional; endocrine; and metabolic disorders (1 source)Body mass index (BMI) 40.0-44.9, adult; Translations: [BODY MASS INDEX BMI 40.0-44.9 ADULT]Onset: 67-71-1203BwhsttuGgstv nutritional; endocrine; and metabolic disorders (5 sources)Severe obesity; Translations: [Morbid (severe) obesity due to excess calories]Onset: 461624-05-7040RgggmxwQhayq screening for suspected conditions (not mental disorders or infectious disease) (20 sources)Abnormal quantity of physiologic substance; Translations: [Culture positive for methicillin resistant Staphylococcus aureus]Onset: 11-22-2014 22-27-6980OxrdelouMlvmmnr on above:2015- armpit and chin- [place] at [facility] [id number] armpit and chin- [place] at [facility] in [place] skin disorders (4 sources)Ingrowing nail; Translations: [Ingrowing nail]64-47-4880GterkoibNkdcm skin disorders (3 sources)Ingrowing nail; Translations: [Ingrowing nail]10-90-9369YfrijhorHnhzx upper respiratory infections (2 sources)Acute upper respiratory infection, unspecified; Translations: [Upper respiratory infection]Onset: 288512-44-6176MofhhrhlWopmhk media and related conditions (3 sources)Acute suppurative otitis media without spontaneous rupture of ear drum; Translations: [Acute suppurative otitis media without spontaneous rupture of ear drum, left ear]03-82-9295EsvtqyyuGioeuljzp (1 source)Left hemiparesisChronicPeripheral and visceral atherosclerosis (11 sources)Peripheral vascular disease; Translations: [Peripheral vascular disease, unspecified]09-66-9136TdykotwAuvkhhmq codes; unclassified (20 sources)Obstructive sleep apnea syndrome; Translations: [Obstructive sleep apnea (adult) (pediatric)]Onset: 994934-64-3810SgjqevjUxbghzxl codes; unclassified (20 sources)Sleep -88-0019JfykqzdIqnxblgf codes; unclassified (1 source)Insomnia; Translations: [Other insomnia]ChronicResidual codes; unclassified (1 source)Sleep apnea, unspecified; Translations: [SLEEP APNEA UNSPECIFIED] Onset: 94-57-8718OdvhcwtNezcwuit codes; unclassified (12 sources)Noncompliance with medication regimen; Translations: [Patient's other noncompliance with medicationregimen]Onset: 43-12-5720FpwvzwhvCmrmahid codes; unclassified (1 source)Altered mental statusEpisodicResidual codes; unclassified (6 sources)Pain; Translations: [Pain, unspecified]87-71-5563IgukykogBsqblwqk codes; unclassified (20 sources)Chronic back iqdf33-65-3924XadfclcbPhshnoss codes; unclassified (2 sources)Problem situation; Translations: [Other problems related to lifestyle]Onset: 05-70-8861DwvopwkyNwahldag codes; unclassified (20 sources)Electronic cigarette kbqn84-65-5141ZbrzrrhiRmifdroa codes; unclassified (1 source)Procedure carried out on subject; Translations: [Encounter for prophylactic measures, unspecified]Onset: 89-37-5983LrjsxsqrZatjgnlv codes; unclassified (1 source)H/O: Disorder; Translations: [Personal history of other specified conditions]Onset: 20-67-5948TnmhzcneRoeushva codes; unclassified (7 sources)Staring; Translations: [Transient alteration of awareness]09-06-2018 EpisodicResidual codes; unclassified (1 source)Acquired absence of other specified parts of digestive tract; Translations: [ACQ ABSENCE OTH PART DIGESTV TRACT]Onset: 44-90-0368Inqqzbdh Residual codes; unclassified (1 source)Failed encounter; Translations: [No-show for appointment]11-07-2024 EpisodicResidual codes; unclassified (1 source)Pain, unspecified; Translations: [Pain, unspecified]Onset: 12-02-2024 EpisodicRetinal detachments; defects; vascular occlusion; and retinopathy (20 sources)Hemorrhage of left retina; Translations: [Retinal hemorrhage, left eye]Onset: 921799-44-3453KbunnvsWnwylhxtjqciw and other psychotic disorders (20 sources)Schizophrenia; Translations: [Schizophrenia, unspecified]Onset: 976989-44-6076EaltpnqEptokjpaj and history of mental health and substance abuse codes (1 source)Personal history of nicotine dependence; Translations: [PERSONAL HISTORY OF NICOTINE DEPEND]Onset: 21-96-3240HwudnsoaRbbb and subcutaneous tissue infections (20 sources)Cellulitis of chin ; Translations: [Abscess of chin]Onset: 11-30-2014 Resolved: 709019-93-6612CneipmjzNoekirppdtx; intervertebral disc disorders; other back problems (20 sources)Degeneration of lumbar intervertebral disc; Translations: [Other intervertebral disc degeneration, lumbar region]Onset: 499167-77-9462 ChronicSpondylosis; intervertebral disc disorders; other back problems (20 sources)Sciatica; Translations: [Neck pain]Onset: EpisodicSprains and strains (4 sources)Injury of thigh; Translations: [Strain of muscle, fascia and tendon of the posterior muscle group at thigh level, right thigh, initial encounter] Onset: 697054-68-7139RskcqqhtTgrfptxbz-eztlhaf disorders (20 sources)Nicotine dependence; Translations: [Smoker]Onset: 04-07-2022 06-82-3880VxymbfsKrsfodk on above:Added secondary to documentation in Social History.Superficial injury; contusion (5 sources)Contusion of lower back and pelvis, initial encounter; Translations: [Contusion of left knee]Onset: 78-00-8982VtwcwtzsGysjngh (20 sources)Syncope and collapse; Translations: [Syncope]Onset: 12-15-2011 06-79-1225WcywsoznDbmokvf disorders (20 sources)Hypothyroidism; Translations: [Hypothyroidism, unspecified]Onset: 961819-19-7699KnriuabYgfnoimkucat (3 sources)Suspected infectious disease; Translations: [MRSA (methicillin- resistant Staph aureus) carrier/suspected carrier]Onset: Unclassified (1 source)NICOTINE DEPEND CIGARETTES UNCOMPOnset: 42-50-3716Iadnigtvhwky (1 source)OTH RANGE MANAGEMENT SPECIALIST CURRENT DRUG THERAPYOnset: 74-42-7128Izqefnmkfqqo (1 source)TYPE 2 DM WITHOUT COMPLICATIONSOnset: 58-31-7064Bqybtfaoqylk (1 source)CARE HOME CURRENT USE OF INSULINOnset: 19-21-5244Ibdugtqimuvd (1 source)CARE HOME USE ORAL HYPOGLYCEMIC DXOnset: 66-52-7843Bcgpnxwwrrad (1 source)RANGE MANAGEMENT SPECIALIST CURRENT USE OF ASPIRINOnset: 77-47-7885Wlxikecowqrc (20 sources)Patient encounter jlalxd42-91-0610Hxopkvwzgovn (18 sources)Pain of joint of kneeOnset: 760068-73-4889Ccwejyqzhlhd (1 source)CONTACT W/AND (SUSP) EXPOS COVID-19; Translations: [CONTACT W/AND (SUSP) EXPOS COVID-19]Onset: 65-35-4283Nsozmfaryfix (4 sources)COUGH, UNSPECIFIED; Translations: [COUGH, UNSPECIFIED]Onset: 20-97-9149Ennpkikxkjmp (1 source)LOW BACK PAIN, UNSPECIFIED; Translations: [LOW BACK PAIN, UNSPECIFIED] Onset: 87-43-1002Mpvrkuyfjrxe (1 source)Finding of sensation of dhnwuec92-17-0469Ucbqluuiipze (2 sources)Chronic pain of both iduqt10-57-7675Ojuobxgaelam (1 source)Patient's noncompliance with other medical treatment and regimen due to unspecified reason; Translations: [Patient's noncompliance with other medical treatment and regimen due to unspecified reason]Onset: 45-53-0736Esqkpoffrzar (1 source)Low back pain, unspecified; Translations: [Low back pain, unspecified] Onset: 35-18-3374Evwrxfybwjxb (1 source)Sudden vision lossOnset: 35-01-9423Weylscmnracg (1 source)Other intervertebral disc degeneration, lumbar region without mention of lumbar back pain or lower extremity pain; Translations: [Other intervertebral disc degeneration, lumbar region without mentionof lumbar back pain or lower extremity pain]Onset: 52-05-5458Ctsvsapzeeed (1 source)Other intervertebral disc degeneration, lumbar region with discogenic back pain only; Translations:[Other intervertebral disc degeneration, lumbar region with discogenic back pain only]Onset: 93-89-3291Hucsgzggokar (1 source)Disruption or dehiscence of closure of internal operation (surgical) wound of abdominal wall muscleor fascia, initial encounter; Translations: [Disruption or dehiscence of closure of internal operation (surgical) wound of abdominal wall muscle or fascia, initial encounter]Onset: 39-57-9168Zrifbixklxiz (1 source)Other intervertebral disc degeneration, lumbar region with discogenic back pain and lower extremitypain; Translations: [Other intervertebral disc degeneration, lumbar region with discogenic back pain and lower extremity pain] Onset: 75-83-4248Uerfygh tract infections (20 sources)Acute cystitis with hematuria; Translations: [Urinary tract infectious disease]Onset: 21-92-0681JjclsudyMrjpf infection (20 sources)Human papilloma virus culparieu74-58-1519Pahbmwkq Past or Other Problems Problem ClassificationProblemDateDocumented DateEpisodic/ChronicAbdominal pain (20 sources)Right lower quadrant pain; Translations: [Lower abdominal pain] Onset: 02-04-2008 Resolved: 064712-99-5285VyoaiatmPcsfw and unspecified renal failure (20 sources)Acute kidney failure, unspecified; Translations: [Acute injury of kidney]Onset: 12-03-2014 Resolved: 317140-04-1540OrbnmhohEqceasgxc infection; unspecified site (20 sources)Other bacterial infections of unspecified site; Translations: [History of methicillin resistant Staphylococcus aureus infection]Onset: 11-30-2014 Resolved: 120907-07-8104ArsnkqbeBwistrl dysrhythmias (20 sources)Palpitations; Translations: [Bradycardia]Onset: EpisodicComplications of surgical procedures or medical care (20 sources)Wound dehiscence; Translations: [Abdominal wound dehiscence, initial encounter]Onset: 03-22-2024 Resolved: 966406-74-5454IriykhecWmgydlwfyp associated with dizziness or vertigo (20 sources)Dizziness; Translations: [Dizziness and giddiness]Onset: 01-01-2022 92-99-3091DbvvrgtnMezfpagl mellitus without complication (20 sources)Hyperglycemia, unspecified; Translations: [Insulin pump present] Onset: 45-54-7718XbielwnfXkajd and electrolyte disorders (20 sources)Metabolic acidosis, normal anion gap (NAG); Translations: [Hypokalemia]Onset: 12-03-2014 Resolved: 660629-75-3159IhwrwlmjWibjfcek; including migraine (20 sources)Headache; Translations: [Headache]Onset: EpisodicImmunizations and screening for infectious disease (20 sources)Contact with and (suspected) exposure to other viral communicable diseases; Translations: [Carrier or suspected carrier of Methicillin resistant Staphylococcus aureus]Onset: 12-01-2014 Resolved: 39-80-7279MbumvdcnVwwncsdjvo infection (1 source)Viral intestinal infection, unspecified; Translations: [VIRAL INTESTINAL INFECTION UNSPEC]Onset: 50-56-6888OwexjhdsUpszlcu examination/evaluation (1 source)Encounter for preprocedural cardiovascular examination; Translations: [Encounter for preprocedural cardiovascular examination]Onset: 07-17-2017 EpisodicMood disorders (20 sources)Mood disordersOnset: 03-29-2024 Resolved: 571020-14-3791Twaqjby (20 sources)Candidiasis; Translations: [Candidiasis, unspecified]Onset: 755347-75-3796HniiwyggMewyva and vomiting (12 sources)Nausea; Translations: [Nausea]Onset: 02-04-2008 Resolved: 548967-50-0791DgjhgujvVdmccrafxnx chest pain (20 sources)Chest pain, unspecified; Translations: [Other chest pain]Onset: 02-16-2017 Resolved: 25-03-0878AnzzurbuWycmkvdjcnd deficiencies (20 sources)Cobalamin deficiency; Translations: [Deficiency of other specified B group vitamins]Onset: 542902-70-5028ZuaokrdzGkkuq aftercare (7 sources)terminal operator (current) use of insulin; Translations: [RANGE MANAGEMENT SPECIALIST CURRENT USE OF INSULIN]Onset: 50-86-1814JdpdwiwsFmbwe aftercare (3 sources)Other longshore equipment operator (current) drug therapy; Translations: [OTH RANGE MANAGEMENT SPECIALIST CURRENT DRUG THERAPY]Onset: 44-14-5048FjeckatiRyckh aftercare (1 source)care home (current) use of 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/antiplatelets; Translations: [CARE HOME ANTITHROMBOT/ANTIPLATLETS]Onset: 02-68-3436Nmbdcves Other aftercare (20 sources)Long-term current use of drug therapy; Translations: [Encounter for therapeutic drug level monitoring]Onset: 05-13-2024 Resolved: 868333-75-1990VlemothwDxyrt aftercare (2 sources)Encounter for therapeutic drug level monitoring; Translations: [Encounter for therapeutic drug level monitoring]Onset: 54-17-9796OjyicoomWaluo aftercare (2 sources)terminal operator (current) use of opiate analgesic; Translations: [terminal operator (current) use of opiate analgesic]Onset: 55-18-0601FlchxyslRkazg circulatory disease (1 source)Personal history of other diseases of the circulatory system; Translations: [Personal history of other diseases of the circulatory system] Onset: 24-60-5498PzgkxbtjGepyn circulatory disease (20 sources)History of cerebrovascular accident; Translations: [Personal history of transient ischemic attack (TIA), and cerebral infarction without residual deficits]Onset: 459185-58-1506YakebbihKfibq connective tissue disease (20 sources)Fibromyalgia; Translations: [Fibromyalgia]Onset: 09-09-2021 87-31-6913JqofgqvzWtruy connective tissue disease (5 sources)Pain in toe; Translations: [Pain in left toe(s)]Onset: 01-09-2024 10-01-9690MdgvldyzDfeib connective tissue disease (1 source)Myalgia, unspecified site; Translations: [MYALGIA UNSPECIFIED SITE] Onset: 52-82-8414LohvzjjwXrgru connective tissue disease (20 sources)Spasm; Translations: [Other muscle spasm]Onset: EpisodicOther connective tissue disease (20 sources)Myofascial pain syndrome; Translations: [Myalgia, other site]Onset: 024960-19-7875DgcdxykvEgdrt connective tissue disease (2 sources)Other specified soft tissue disorders; Translations: [Other specified soft tissue disorders]Onset: 37-01-5189AwdxskfrPglwl connective tissue disease (2 sources)Other symptoms and signs involving the musculoskeletal system; Translations: [Other musculoskeletalsymptoms referable to limbs]Onset: 197185-37-0889JrmynmsbLrztr ear and sense organ disorders (3 sources)Otalgia, left ear; Translations: [Otalgia, unspecified]Onset: 02-23-2009 Resolved: 853603-58-5711UricgyocUhyfs female genital disorders (3 sources)Polyp of corpus uteri; Translations: [Polyp of corpus uteri]Onset: 567609-54-6240RbinwbvfAnojc gastrointestinal disorders (6 sources)Diarrhea, unspecified; Translations: [DIARRHEA UNSPECIFIED]Onset: 58-22-0588RfwebeyeMpgtf gastrointestinal disorders (20 sources)Incontinence of feces; Translations: [Full incontinence of feces] Onset: 554194-16-3424NuasqqhzOyjff injuries and conditions due to external causes (2 sources)Systemic inflammatory response syndrome (SIRS) of non-infectious origin without acute organ dysfunction; Translations: [Systemic inflammatory response syndrome (sirs) of non-infectious origin withoutacute organ dysfunction]Onset: 39-41-5312SkglpxlzPtxzn lower respiratory disease (3 sources)Finding of respiration; Translations: [Other forms of dyspnea]Onset: 03-17-2008 Resolved: 558879-26-5751QrhoyucoNxowq nervous system disorders (3 sources)Anesthesia of skin; Translations: [ANESTHESIA OF SKIN]Onset: 04-29-8561SdlzcpcaXtagt non-traumatic joint disorders (3 sources)Arthralgia of the ankle and/or foot; Translations: [Pain in unspecified ankle and joints of unspecified foot]Onset: 03-17-2008 Resolved: 007197-18-0240BsrittoeVcxss non-traumatic joint disorders (4 sources)Pain in left knee; Translations: [Pain in left knee]Onset: 03-22-2024 EpisodicOther nutritional; endocrine; and metabolic disorders (1 source)Personal history of other endocrine, nutritional and metabolic disease; Translations: [Personal history of other endocrine, nutritional and metabolic disease]Onset: 55-41-6034WnklypfjHjdkh nutritional; endocrine; and metabolic disorders (20 sources)Weight gain; Translations: [Abnormal weight gain]Onset: 05-17-2023 Resolved: 089604-36-1251GiikkonbVflvo nutritional; endocrine; and metabolic disorders (20 sources)Weight increased; Translations: [Abnormal weight gain]Onset: 05-17-2023 Resolved: 935619-56-0016BrriizgoXbzrf skin disorders (20 sources)Disorder of skin pigmentation; Translations: [Disorder of pigmentation, unspecified]Onset: 584709-51-9202LfanmcwtNdzjadtk codes; unclassified (20 sources)Insomnia; Translations: [Insomnia, unspecified]Onset: 05-06-2023 71-15-1255TvtdpegfVokteoxg codes; unclassified (1 source)Procedure and treatment not carried out because of patient's decision for other reasons; Translations: [PROC AND TX NOT CARRIED OUT PT OTH RSN]Onset: 08-07-9894RamljjsxOhsqvgpi codes; unclassified (1 source)Acquired absence of both cervix and uterus; Translations: [ACQUIRED ABSENCE BOTH CERVIX AND UTERUS]Onset: 30-13-9075JatbptutGjgkeikj codes; unclassified (1 source)Patient's noncompliance with other medical treatment and regimen; Translations: [PT NONCOMPLIANCE OTH MED TX AND REGIMEN]Onset: 88-15-0824Nspgzdzt Residual codes; unclassified (3 sources)Sleep disorder; Translations: [Sleep disorder, unspecified]Onset: 979154-15-5340UmezcucxXguvmioi codes; unclassified (3 sources)Noncompliance with treatment; Translations: [Noncompliance]Onset: 590050-35-3503LilgrsevSubolreh codes; unclassified (20 sources)Family history of disorder of lung; Translations: [Family history of other diseases of the respiratory system]Onset: 815559-14-7789Imiwtoww Residual codes; unclassified (20 sources)Family history of dementia; Translations: [Family history of other mental and behavioral disorders]Onset: 279932-99-6622QisaijdsBymalmkzxt (20 sources)Sepsis; Translations: [Bacteremia caused by Gram-positive bacteria] Onset: 12-03-2014 Resolved: 428760-81-0584EqobaunzPkygbbqrvrli (1 source)Family history of ischemic heart disease and other diseases of the circulatory system; Translations: [Family history of ischemic heart disease and other diseases of the circulatory system]Onset: 67-58-0849PxupuoepWrjovepbknya (20 sources)Bipolar (qualifier value)74-72-0499Rbmrlcccgcuc (1 source)COUGH, UNSPECIFIED; Translations: [COUGH, UNSPECIFIED]Onset: 93-18-2931Csqsdcklilik (1 source)Onset: 890475-84-7128Ytnimfwdggfs (1 source)Patient's noncompliance with other medical treatment and regimen due to unspecified reason; Translations: [Patient's noncompliance with other medical treatment and regimen due to unspecified reason]Onset: 37-81-6925Brksbfkojmuc (1 source)Low back pain, unspecified; Translations: [Low back pain, unspecified] Onset: 26-25-0332Oerbiwmaimsz (1 source)Other intervertebral disc degeneration, lumbar region without mention of lumbar back pain or lower extremity pain; Translations: [Other intervertebral disc degeneration, lumbar region without mentionof lumbar back pain or lower extremity pain]Onset: 30-10-7986Oihhogpfukst (1 source)Other intervertebral disc degeneration, lumbar region with discogenic back pain only; Translations:[Other intervertebral disc degeneration, lumbar region with discogenic back pain only]Onset: 28-43-5993Egqxdmsychae (1 source)Disruption or dehiscence of closure of internal operation (surgical) wound of abdominal wall muscleor fascia, initial encounter; Translations: [Disruption or dehiscence of closure of internal operation (surgical) wound of abdominal wall muscle or fascia, initial encounter]Onset: 64-18-9917Kzzrxohvjvfu (1 source)Other intervertebral disc degeneration, lumbar region with discogenic back pain and lower extremitypain; Translations: [Other intervertebral disc degeneration, lumbar region with discogenic back pain and lower extremity pain] Onset: 84-38-3777Zepkl infection (1 source)COVID-19Onset: 06-14-2021 Resolved: 06-14-2021 Results Test NameValueInterpretationReference RangeFacilityGent Peakon 76-51-5568Rvfe Pk 4.4 microgram/mLAbnormal5.0-10.0[facility] SystemComment on above: Result Comment: Critical Result Verified by Repeat Analysis Critical Result S_GEN_P:4.4 Called to and read back by: TONIA SIMENTAL at: 02/03/2025 12:24:23 by:MARIA Merformed By: #### [id number] #### [facility] [address] [place], [place] [address]Dptk Troughon 01-66-4133Mahx Tr3.0 microgram/mLAbnormal0.5-1.9 [facility] SystemComment on above:Result Comment: Critical Result Verified by Repeat Analysis Critical Result S_GEN_T:3.0 Called to and read back by: TONIA SIMENTAL at: 02/03/2025 12:23:11 by:MARIA Merformed By: #### [id number] #### [facility] [address] [place], [place] [address]Tguh Tr Dose TmNo info givenInvalid Interpretation [facility] HospitalComment on above:Performed By: #### [id number] #### [facility] [address] [place], [place] [address]Pju Miscellaneous-LCon 23-56-6606Myd Miscellaneousclerical errorInvalid Interpretation [facility] HospitalComment on above: Order Comment: Clerical error. Cannot be cancelled [id number] 02/03/2025 10:29:36 EDTPerformed By: #### [id number] #### [facility] [address] [place] [id number] [id number] Interpretation [facility] HospitalComment on above:Order Comment: Clerical error. Cannot be cancelled [id number] 02/03/2025 10:29:36 EDTPerformed By: #### [id number] #### [facility] [address] [place] [id number] NamegentamicinInvalid Interpretation [facility] HospitalComment on above:Order Comment: Clerical error. Cannot be cancelled [id number] 02/03/2025 10:29:36 EDTPerformed By: #### [id number] #### [facility] [address] [place] [id number] (Bld) [Mass/Vol]on 93-05-5088Xuenihi Blood, ETN103 mg/dLFirstHealth Moore Regional Hospital - RichmondHbA1c (Bld) [Mass fraction]Ordered By: Shy Hurd on 63-88-0113GSEKCameron [facility] CenterLaboratory - Hematology and Cell counts Ordered By: Shy Hurd on 85-31-3252ZoH3d (Bld) [Mass fraction]8.4 %[facility] CenterLab Miscellaneous-LCon 37-45-1543Iyy MiscellaneousCOMMENTInvalid Interpretation [facility] HospitalComment on above:Result Comment: Test Ordered: [id number] Clonazepam, Ur as Metabolite 7-Aminoclonazepam Negative ng/ml MX This test was developed and its performance characteristics determined [facility] It has not been cleared or approved by the Food and Drug Administration. Performed at: [address] [id number] Romariojose danielkayy WaltondestineyPerformed By: #### [id number] #### [facility] [address] [place], [place] [address]Bvs Miscellaneous-LCon 21-74-8541Vhla [id number] Interpretation Nationwide Children's HospitalComment on above:Performed By: #### [id number] #### [facility] [address] [place], [place] [address]Xzjj NameClonazepamInvalid Interpretation Nationwide Children's HospitalComment on above:Performed By: #### [id number] #### [facility] [address] [place], [place] [address]U Drug Screenon 01-09-2025U Amph ScrNegativeNormalNEGATIVE [facility] SystemComment on above:Result Comment: Negative Cutoff: <1000 ng/mLPerformed By: #### [id number] #### [facility] [address] [place], [place] [address]V Julianna ScrNegativeNormalNEGMercy Health St. Rita's [facility] Comment on above:Result Comment: Negative Cutoff: <200 ng/mLPerformed By: #### [id number] #### [facility] [address] [place], [place] [address]R Benzodia ScrNegativeNormalNEGMercy Health St. [facility]'s [facility] Comment on above:Result Comment: Negative Cutoff: <200 ng/mLPerformed By: #### [id number] #### [facility] [address] [place], [place] [address]O Cannab ScrNegativeNormalNEGMercy Health St. [facility]'s [facility] Comment on above:Result Comment: Negative Cutoff: <50 ng/mLPerformed By: #### [id number] #### [facility] [address] [place], [place] [address]O Cocaine ScrNegativeNormalNEGATIVEBlanchard Valley Health [facility] Comment on above:Result Comment: Negative Cutoff: <300 ng/mLPerformed By: #### [id number] #### [facility] [address] [place], [place] [address]M FentanylNegativeNormalNEGMercy Health St. Rita's [facility] Comment on above:Result Comment: Negative Cutoff: <5 ng/mL These drug screen results are to be used for medical (i.e., treatment) purposes only. Unconfirmed drug screening results must not be used for non-medical purposes (e.g., employment testing, legal testing).Performed By: #### [id number] #### [facility] [address] [place], [place] [address]V Opiate ScrPositiveAbnormalNEGMercy Health St. Rita's [facility] Comment on above:Result Comment: If confirmation is required, please notify the lab within 72 hours Result verified by repeat analysis, Unconfirmed by alternate method Negative Cutoff: <300 ng/mLPerformed By: #### [id number] #### [facility] [address] [place], [place] [address]J PCP ScrNegativeNormalNEGMercy Health St. [facility]'s [facility] Comment on above:Result Comment: Negative Cutoff: <25 ng/mL These drug screen results are to be used for medical (i.e., treatment) purposes only. Unconfirmed drug screening results must not be used for non-medical purposes (e.g., employment testing, legal testing).Performed By: #### [id number] #### [facility] [address] [place], [place] [address]Gfvtp Cultureon 70-38-4717Bxkaojzg identified Cx Nom (U)<9,000 colonies/ml mixed bacterial skin contaminants 2 Days PERFORMED BY: [place] [address] PATHOLOGIST THEATRE INSTRUCTOR HARESH BANERJEE M.D.[facility] Physician GroupComment on above: Performed By: #### CUU #### [place] [address] USAUrine cultureOrdered By: Ben Horn on 12-28-2024 Bacteria identified Cx Nom (U)[address] Elizabeth Boardman HospitalBASIC METABOLIC PANELon 80-98-5373Xhtnz gap [Moles/Vol]6 mmol/LNormal5-15[facility] HospitalComment on above:Performed By: #### BEDG #### [facility] ([facility]) [address] [place] [address] VIRCalcium [Mass/Vol]8.4 mg/dLLow8.5-10.5PChillicothe VA Medical Center HospitalComment on above:Performed By: #### BEDG #### [facility] ([facility]) [address] [place] [address] VIRChloride [Moles/Vol]111 mmol/IVodt50-144EcwHkyevf [place] HospitalComment on above:Performed By: #### BEDG #### [facility] ([facility]) [address] [place] [address] VIRCO2 [Moles/Vol]22 mmol/FVfvgme01-59VtkLtkzwuKettering Health Springfield Comment on above:Performed By: #### BEDG #### [facility] ([facility]) [address] [place] [address] VIRCreatinine [Mass/Vol]0.95 mg/dLNormal0.40-1.00ProMercy Health St. Joseph Warren HospitalComment on above:Result Comment: METHOD TRACEABLE TO IDMS STANDARDPerformed By: #### BEDG #### [facility] ([facility]) [address] [place] [address] VIRGFR/1.73 sq M.predicted among non-blacks MDRD (S/P/Bld) [Vol rate/Area]74 mL/min/{1.73_m2}Normal>=60ProMercy Health St. Joseph Warren HospitalComment on above:Result Comment: Reported eGFR is based on the CKD-EPI 2020 equation that does not use a race coefficient.Performed By: #### BEDG #### [facility] ([facility]) [address] [place] [address] VIRGlucose [Mass/Vol]225 mg/mIPhjr03-14JzeIdvxdj [place] HospitalComment on above:Performed By: #### BEDG #### [facility] ([facility]) [address] [place] [address] VIRPotassium [Moles/Vol]4.6 mmol/LNormal3.5-5.0ProCleveland Clinic Euclid Hospital HospitalComment on above:Performed By: #### BEDG #### [facility] ([facility]) [address] [place] [address] VIRSodium [Moles/Vol]139 mmol/YMwogog183-482CmlNxcsmf [place] HospitalComment on above:Performed By: #### BEDG #### [facility] ([facility]) [address] [place] [address] VIRUrea nitrogen [Mass/Vol]17 mg/dLNormal5-23ProCleveland Clinic Euclid Hospital HospitalComment on above:Performed By: #### BEDG #### [facility] ([facility]) [address] [place] [address] VIRBEDSIDE GLUCOSEon 84-63-6942Ldkygts [Mass/Vol]244 mg/dLHigh 65-99ProCleveland Clinic Euclid Hospital HospitalComment on above:Performed By: #### BEDG #### [facility] ([facility]) [address] [place] [address] VIRGlucose [Mass/Vol]265 mg/mRGiap87-73JfcUnzflx [place] HospitalComment on above:Performed By: #### BEDG #### [facility] ([facility]) [address] [place] [address] VIRBasic Metabolic Panelon 66-66-2706Ljcmn gap [Moles/Vol]6 mmol/L5 - 15 mmol/LProMedica Health SystemCalcium [Mass/Vol]8.4 mg/dLLow8.5 - 10.5 mg/dLProMedica Health SystemChloride [Moles/Vol]111 mmol/LHigh98 - 109 mmol/LProMedica Health SystemCO2 [Moles/Vol]22 mmol/L22 - 32 mmol/LPrSouthview Medical CenterCreatinine [Mass/Vol]0.95 mg/dL0.40 - 1.00 mg/dLUK HealthcareComment on above:METHOD TRACEABLE TO IDMS STANDARDEGFR Non-Race Dependent 74- PINFPACMC Healthcare System GlenbeighComment on above:Reported eGFR is based on the CKD-EPI 2020 equation that does not use a race coefficient. Glucose [Mass/Vol]225 mg/lSKzti98 - 99 mg/dLUK Healthcare Interpretation and review of laboratory resultsAbStony Brook [facility] Potassium [Moles/Vol]4.6 mmol/L3.5 - 5.0 mmol/[facility] SystemSodium [Moles/Vol]139 mmol/L134 - 146 mmol/[facility] Memorial HospitalUrea nitrogen [Mass/Vol]17 mg/dL5 - 23 mg/dLWills Eye Hospital Bedside Glucose *Place/Obtain serum glucose if >500 per glucometer.on 12-05-2024 Glucose [Mass/Vol]244 mg/lRMdnt87 - 99 mg/dLUK Healthcare Interpretation and review of laboratory resultsAbUnitypoint Health Meriter HospitalGlucose [Mass/Vol]265 mg/rDJyfb11 - 99 mg/dLUK HealthcareInterpretation and review of laboratory resultsAbKindred Hospital PittsburghBASIC METABOLIC PANELon 80-58-1590Bihyl gap [Moles/Vol]8 mmol/LNormal5-15Berger HospitalComment on above:Performed By: #### BEDG #### [facility] ([facility]) [address] [place] [address] VIRCalcium [Mass/Vol]7.6 mg/dLLow8.5-10.5PKettering Health SpringfieldComment on above:Performed By: #### BEDG #### [facility] ([facility]) [address] [place] [address] VIRChloride [Moles/Vol]111 mmol/SCzxy45-695NatFvoztcBerger HospitalComment on above:Performed By: #### BEDG #### [facility] ([facility]) [address] [place] [address] VIRCO2 [Moles/Vol]20 mmol/JBge63-20AlpDmlzpgOhioHealth Southeastern Medical Center Comment on above:Performed By: #### BEDG #### [facility] ([facility]) [address] [place] [address] VIRCreatinine [Mass/Vol]0.89 mg/dLNormal0.40-1.00ProCleveland Clinic Euclid Hospital HospitalComment on above:Result Comment: METHOD TRACEABLE TO IDMS STANDARDPerformed By: #### BEDG #### [facility] ([facility]) [address] [place] [address] VIRGFR/1.73 sq M.predicted among non-blacks MDRD (S/P/Bld) [Vol rate/Area]80 mL/min/{1.73_m2}Normal>=60ProMercy Health St. Joseph Warren HospitalComment on above:Result Comment: Reported eGFR is based on the CKD-EPI 2020 equation that does not use a race coefficient.Performed By: #### BEDG #### [facility] ([facility]) [address] [place] [address] VIRGlucose [Mass/Vol]253 mg/eNXunz01-92BfhJbkfkoMercy Health St. Joseph Warren HospitalComment on above:Performed By: #### BEDG #### [facility] ([facility]) [address] [place] [address] VIRPotassium [Moles/Vol]4.3 mmol/LNormal3.5-5.0ProCleveland Clinic [facility] HospitalComment on above:Performed By: #### BEDG #### [facility] ([facility]) [address] [place] [address] VIRSodium [Moles/Vol]139 mmol/SWqovxu795-917LuxAisexr [place] HospitalComment on above:Performed By: #### BEDG #### [facility] ([facility]) [address] [place] [address] VIRUrea nitrogen [Mass/Vol]15 mg/dLNormal5-23ProCleveland Clinic Euclid Hospital HospitalComment on above:Performed By: #### BEDG #### [facility] ([facility]) [address] [place] [address] VIRBEDSIDE GLUCOSEon 75-75-1393Gcifqkg [Mass/Vol]348 mg/dLHigh 65-99ProCleveland Clinic Eucl[facility] Hospital HospitalComment on above:Performed By: #### BEDG #### [facility] ([facility]) [address] [place] [address] VIRGlucose [Mass/Vol]200 mg/yHJupc42-08ZabAgcfwg [place] HospitalComment on above:Performed By: #### BEDG #### [facility] ([facility]) [address] [place] [address] VIRGlucose [Mass/Vol]348 mg/aXQerr93-02WanYsqppw [place] HospitalComment on above:Performed By: #### BEDG #### [facility] ([facility]) [address] [place] [address] VIRGlucose [Mass/Vol]251 mg/tVNhwn32-76YatLnlwsx [place] HospitalComment on above:Performed By: #### BEDG #### [facility] ([facility]) [address] [place] [address] VIRGlucose [Mass/Vol]262 mg/gHLrxw59-96AwtWqrlat [place] HospitalComment on above:Performed By: #### BEDG #### [facility] ([facility]) [address] [place] [address] VIRBasic Metabolic Panelon 60-55-7264Rwpng gap [Moles/Vol]8 mmol/L5 - 15 mmol/LProMedica Health SystemCalcium [Mass/Vol]7.6 mg/dLLow8.5 - 10.5 mg/dLProMedica Health SystemChloride [Moles/Vol]111 mmol/LHigh98 - 109 mmol/LProMedica Health SystemCO2 [Moles/Vol]20 mmol/LLow22 - 32 mmol/[facility] SystemCreatinine [Mass/Vol]0.89 mg/dL0.40 - 1.00 mg/dLUK HealthcareComment on above:METHOD TRACEABLE TO IDMS STANDARDEGFR Non-Race Dependent 80- [facility] HospitalComment on above:Reported eGFR is based on the CKD-EPI 2020 equation that does not use a race coefficient. Glucose [Mass/Vol]253 mg/tBOblb34 - 99 mg/dLUK Healthcare Interpretation and review of laboratory resultsAbStony Brook [facility] Hospital Potassium [Moles/Vol]4.3 mmol/L3.5 - 5.0 mmol/[facility] SystemSodium [Moles/Vol]139 mmol/L134 - 146 mmol/[facility] SystemUrea nitrogen [Mass/Vol]15 mg/dL5 - 23 mg/dLWills Eye Hospital Bedside Glucose *Place/Obtain serum glucose if >500 per glucometer.on 12-04-2024 Glucose [Mass/Vol]348 mg/lFGykr46 - 99 mg/dLUK Healthcare Interpretation and review of laboratory resultsAbUnitypoint Health Meriter HospitalGlucose [Mass/Vol]200 mg/zHXezc04 - 99 mg/dLUK HealthcareInterpretation and review of laboratory resultsAbnoWellSpan HealthGlucose [Mass/Vol]348 mg/zOQrkf38 - 99 mg/dL UK HealthcareInterpretation and review of laboratory resultsAbnormal [facility]ills Eye HospitalGlucose [Mass/Vol]251 mg/gKKtvk91 - 99 mg/dLUK HealthcareInterpretation and review of laboratory results AbnormalWills Eye HospitalGlucose [Mass/Vol]257 mg/fGJked39 - 99 mg/dLUK HealthcareInterpretation and review of laboratory resultsAbnoWellSpan HealthGlucose [Mass/Vol]262 mg/bKAedt55 - 99 mg/dLUK HealthcareInterpretation and review of laboratory resultsAbKindred Hospital PittsburghCBC WITH AUTO DIFFERENTIALon 82-17-7255CQTJMJUEO ABSOLUTE COUNT (10*3/UL) BY AUTOMATED COUNT0.1 10*3/uLNormal0.0-0.2Pro[facility]ica [place] [facility] HospitalComment on above:Performed By: #### BEDG #### [facility] ([facility]) [address] [place] [address] VIRBASOPHILS RELATIVE PERCENT BY AUTOMATED COUNT1.1 %Normal [facility] HospitalComment on above:Performed By: #### BEDG #### [facility] ([facility]) [address] [place] [address] VIRCELLAVISION DIFFERENTIAL TYPEAUTOMATED DIFFERENTIALNormal [facility] HospitalComment on above:Performed By: #### BEDG #### [facility] ([facility]) [address] [place] [address] VIREosinophils (Bld) [#/Vol]0.2 10*3/uLNormal0.0-0.4ProWooster Community Hospitalca [place] HospitalComment on above:Performed By: #### BEDG #### [facility] ([facility]) [address] [place] [address] VIREOSINOPHILS RELATIVE PERCENT BY AUTOMATED COUNT3.0 %Normal [facility] HospitalComment on above:Performed By: #### BEDG #### [facility] ([facility]) [address] [place] [address] VIRErythrocyte distribution width (RBC) [Ratio]13.5 %Normal 11.5-15ProCleveland Clinic Euclid Hospital HospitalComment on above:Performed By: #### BEDG #### [facility] ([facility]) [address] [place] [address] VIRHematocrit (Bld) [Volume fraction]32.7 %Wei10-82TpuYivrlj [place] HospitalComment on above:Performed By: #### BEDG #### [facility] ([facility]) [address] [place] [address] VIRHemoglobin (Bld) [Mass/Vol]11.2 g/dLLow11.7-15.5PChillicothe VA Medical Center HospitalComment on above:Performed By: #### BEDG #### [facility] ([facility]) [address] [place] [address] VIRLYMPHOCYTES ABSOLUTE COUNT (10*3/UL) BY AUTOMATED COUNT2.0 10*3/uLNormal1.0-3.5PChillicothe VA Medical Center HospitalComment on above:Performed By: #### BEDG #### [facility] ([facility]) [address] [place] [address] VIRLYMPHOCYTES RELATIVE PERCENT BY AUTOMATED COUNT38.3 %Normal ProMMercy Health St. [facility] HospitalComment on above:Performed By: #### BEDG #### [facility] ([facility]) [address] [place] [address] VIRMCH (RBC) [Entitic mass]30.4 jqLcayiu85-35LynQjistl [place] HospitalComment on above:Performed By: #### BEDG #### [facility] ([facility]) [address] [place] [facility] [place] [address] VIRMCHC (RBC) [Mass/Vol]34.1 g/yPXzdtjv75-32EpqItkzle [place] HospitalComment on above:Performed By: #### BEDG #### [facility] ([facility]) [address] [place] [address] VIRMCV (RBC) [Entitic vol]89 cKJpcpfb46-763AxjWmskab [place] HospitalComment on above:Performed By: #### BEDG #### [facility] ([facility]) [address] [place] [address] VIRMONOCYTES ABSOLUTE COUNT (10*3/UL) BY AUTOMATED COUNT0.3 10*3/uLNormal0.0-0.9ProWooster Community Hospitalca [place] HospitalComment on above:Performed By: #### BEDG #### [facility] ([facility]) [address] [place] [address] VIRMONOCYTES RELATIVE PERCENT BY AUTOMATED COUNT4.8 %Normal [facility] HospitalComment on above:Performed By: #### BEDG #### [facility] ([facility]) [address] [place] [facility] [place] [address] VIRNEUTROPHILS ABSOLUTE COUNT BY AUTOMATED COUNT2.8 10*3/uL Normal1.5-6.6ProWooster Community Hospitalca [place] HospitalComment on above:Performed By: #### BEDG #### [facility] ([facility]) [address] [place] [address] VIRNEUTROPHILS RELATIVE PERCENT BY AUTOMATED COUNT52.8 %Normal [facility] HospitalComment on above:Performed By: #### BEDG #### [facility] ([facility]) [address] [place] [address] VIRPlatelet mean volume (Bld) [Entitic vol]7.5 fLNormal7-12 [facility] HospitalComment on above:Performed By: #### BEDG #### [facility] ([facility]) [address] [place] [address] VIRPlatelets (Bld) [#/Vol]235 10*3/tZCndyva135-644JvoUkhmzj [place] HospitalComment on above:Performed By: #### BEDG #### [facility] ([facility]) [address] [place] [address] VIRRBC COUNT3.67 X10E12/LLow3.8-5.2PIberia Medical Centerica [facility] Comment on above:Performed By: #### BEDG #### [facility] ([facility]) [address] [place] [facility] [place] [address] VIRWBC (Bld) [#/Vol]5.3 10*3/uLNormal4-11ProWooster Community Hospitalca [place] HospitalComment on above:Performed By: #### BEDG #### [facility] ([facility]) [address] [place] [address] VIRCBC auto differentialon 21-35-9642Mwwllexcr (Bld) [#/Vol]0.1 10*3/uL0.0 - 0.2 10*3/uLUK HealthcareBasophils/100 WBC (Bld)1.1 % UK HealthcareDifferential cell count method Nom (Bld)AUTOMATED DIFFERENTIALUK HealthcareEosinophils (Bld) [#/Vol]0.2 10*3/uL0.0 - 0.4 10*3/uLUK HealthcareEosinophils/100 WBC (Bld)3 %UK HealthcareErythrocyte distribution width (RBC) [Ratio]13.5 %11.5 - 15 %UK HealthcareHematocrit (Bld) [Volume fraction]32.7 %Low35 - 47 %UK HealthcareHemoglobin (Bld) [Mass/Vol]11.2 g/dLLow11.7 - 15.5 g/dLUK HealthcareInterpretation and review of laboratory resultsAbnormalUK HealthcareLymphocytes (Bld) [#/Vol]2 10*3/uL1.0 - 3.5 10*3/uLUK HealthcareLymphocytes/100 WBC (Bld)38.3 %UK HealthcareMCH (RBC) [Entitic mass]30.4 pg27 - 34 [facility] Medical CenterMCHC (RBC) [Mass/Vol]34.1 g/dL32 - 36 g/dLUK HealthcareMCV (RBC) [Entitic vol]89 fL80 - 100 Phelps HealthMonocytes (Bld) [#/Vol]0.3 10*3/uL0.0 - 0.9 10*3/uLUK HealthcareMonocytes/100 WBC (Bld)4.8 %UK HealthcareNeutrophils (Bld) [#/Vol]2.8 10*3/uL1.5 - 6.6 10*3/uLUK HealthcareNeutrophils/100 WBC (Bld)52.8 %UK HealthcarePlatelet mean volume (Bld) [Entitic vol]7.5 fL 7 - 12 Phelps HealthPlatelets (Bld) [#/Vol]235 10*3/uLProPomerene Hospital SystemRBC (Bld) [#/Vol]3.67 10*6/LowUK HealthcareWBC LM Ql (Sput)5.3PVeterans Affairs Pittsburgh Healthcare SystemElectrolyte panelon 05-61-6348Ycfjn gap [Moles/Vol]6 mmol/L5 - 15 mmol/LPrGrand River Health Health System Chloride [Moles/Vol]110 mmol/LHigh98 - 109 mmol/LProMedchildren's of alabama [facility] Health SystemCO2 [Moles/Vol]20 mmol/LLow22 - 32 mmol/LProMedchildren's of alabama [facility]ussell [facility] Health SystemInterpretation and review of laboratory resultsAbnoOur Community HospitalPotassium [Moles/Vol] 4.4 mmol/L3.5 - 5.0 mmol/LProMedchildren's of alabama russell campus Health SystemSodium [Moles/Vol]136 mmol/L134 - 146 mmol/LPrSSM Health St. [facility] SystemAPTTon 48-23-0999hKCC Coag (PPP) [Time]25 sLowUK HealthcareInterpretation and review of laboratory resultsAbnoWellSpan HealthaPTT Coag (Bld) [Time]25 qYar17-55NehEqkkzq [place] HospitalComment on above:Performed By: #### CMP #### [facility] ([facility]) [address] [place] [address] VIRBEDSIDE GLUCOSEon 03-94-4072Lqplgtf [Mass/Vol]257 mg/dLHigh 65-99ProCleveland Clinic Euclid Hospital HospitalComment on above:Performed By: #### BEDG #### [facility] ([facility]) [address] [place] [address] VIRGlucose [Mass/Vol]238 mg/dLFgaa27-52WtbSurxvo [place] HospitalComment on above:Performed By: #### BEDG #### [facility] ([facility]) [address] [place] [address] VIRGlucose [Mass/Vol]114 mg/yYAvku78-28YheNjgieq [place] HospitalComment on above:Performed By: #### BEDG #### [facility] ([facility]) [address] [facility] [place] [address] VIRGlucose [Mass/Vol]237 mg/zACebb00-82FqdDaemvn [facility] HospitalComment on above:Performed By: #### CMP #### [facility] ([facility]) [address] [place] [address] VIRGlucose [Mass/Vol]269 mg/nGPtbh17-45OhzVtaooy [facility] HospitalComment on above:Performed By: #### CMP #### [facility] ([facility]) [address] [place] [address] VIRGlucose [Mass/Vol]281 mg/sZVspz16-66QugLxmtfd [facility] HospitalComment on above:Performed By: #### CMP #### [facility] ([facility]) [address] [place] [address] VIRGlucose [Mass/Vol]301 mg/iIZftd33-21FjjMvxkis [facility] HospitalComment on above:Performed By: #### CMP #### [facility] ([facility]) [address] [place] [address] VIRGlucose [Mass/Vol]287 mg/bDCbao22-29AbhGifoyl [facility] HospitalComment on above:Performed By: #### CMP #### [facility] ([facility]) [address] [place] [address] VIRGlucose [Mass/Vol]344 mg/jANptl22-72WigUsmpla [facility] HospitalComment on above:Performed By: #### CMP #### [facility] ([facility]) [address] [place] [address] VIRGlucose [Mass/Vol]318 mg/wDShdk78-75SejFwvcyu [facility] HospitalComment on above:Performed By: #### BEDG #### [facility] ([facility]) [address] [place] [address] VIRGlucose [Mass/Vol]409 mg/dLCritically [id number] [facility]arias HospitalComment on above:Performed By: #### BEDG #### [facility] ([facility]) [address] [place] [address] VIRBEDSIDE GLUCOSE BEDG>^500Critically yywd50-60WuzJburplBerger HospitalComment on above:Performed By: #### BEDG #### [facility] ([facility]) [address] [place] [address] VIRBEDSIDE GLUCOSE BEDG>^500Critically idad93-55NosYzumpnMercy Health St. Joseph Warren HospitalComment on above:Performed By: #### BEDG #### [facility] ([facility]) [address] [place] [address] VIRBedside Glucose *Place/Obtain serum glucose if >500 per glucometer.on [id number] [Mass/Vol]238 mg/sRWicv01 - 99 mg/dLUK HealthcareInterpretation and review of laboratory resultsAbnoWellSpan HealthGlucose [Mass/Vol]114 mg/lTKfdh24 - 99 mg/dL UK HealthcareInterpretation and review of laboratory resultsAbnormal [facility] HospitalGlucose [Mass/Vol]269 mg/fKOwjb32 - 99 mg/dLUK HealthcareGlucose [Mass/Vol]237 mg/pILevo93 - 99 mg/dL UK HealthcareGlucose [Mass/Vol]281 mg/hSMbvl14 - 99 mg/dLUK HealthcareInterpretation and review of laboratory resultsAbnormalWills Eye HospitalGlucose [Mass/Vol]301 mg/qGKwug35 - 99 mg/dL UK HealthcareInterpretation and review of laboratory resultsAbnormal [facility] HospitalGlucose [Mass/Vol]287 mg/aFIpqe65 - 99 mg/dLUK HealthcareInterpretation and review of laboratory results AbnormalWills Eye HospitalGlucose [Mass/Vol]344 mg/cRWsie14 - 99 mg/dLUK HealthcareInterpretation and review of laboratory resultsAbnormAspirus Medford Hospital SystemGlucose [Mass/Vol]318 mg/xWVbif82 - 99 mg/dLParkwood Hospital SystemInterpretation and review of laboratory resultsAbnormalProHospital Sisters Health [facility] SystemGlucose [Mass/Vol]409 mg/dLCritically high65 - 99 mg/dLProPomerene Hospital SystemInterpretation and review of laboratory resultsAbnormAspirus Medford Hospital SystemGlucose [Mass/Vol]mg/dLCritically high65 - 99 mg/dL [facility] SystemInterpretation and review of laboratory resultsAbnormal [facility] SystemGlucose [Mass/Vol]mg/dLCritically high65 - 99 mg/dLParkwood Hospital SystemInterpretation and review of laboratory resultsAbnoWellSpan HealthCB WITH AUTO DIFFERENTIALon [id number] ABSOLUTE COUNT (10*3/UL) BY AUTOMATED COUNT 0.1 10*3/uLNormal0.0-0.2PKettering Health SpringfieldComment on above:Performed By: #### CBCA #### [facility] ([facility]) [address] [place] [address] VIRBASOPHILS RELATIVE PERCENT BY AUTOMATED COUNT1.5 %Normal Berger HospitalComment on above:Performed By: #### CBCA #### [facility] ([facility]) [address] [place] [address] VIRCELLAVISION DIFFERENTIAL TYPEAUTOMATED DIFFERENTIALNormal Berger HospitalComment on above:Performed By: #### CBCA #### [facility] ([facility]) [address] [place] [address] VIREosinophils (Bld) [#/Vol]0.2 10*3/uLNormal0.0-0.4Berger HospitalComment on above:Performed By: #### CBCA #### [facility] ([facility]) [address] [place] [address] VIREOSINOPHILS RELATIVE PERCENT BY AUTOMATED COUNT2.3 %Normal [facility] City HospitalComment on above:Performed By: #### CBCA #### [facility] ([facility]) [address] [place] [address] VIRErythrocyte distribution width (RBC) [Ratio]13.5 %Normal 11.5-15[facility] City HospitalComment on above:Performed By: #### CBCA #### [facility] ([facility]) [address] [place] [address] VIRHematocrit (Bld) [Volume fraction]34.1 %Zqn72-42CwpGnyivi [place] City HospitalComment on above:Performed By: #### CBCA #### [facility] ([facility]) [address] [place] [address] VIRHemoglobin (Bld) [Mass/Vol]11.7 g/rDYakpfd82.7-15.5Pro[facility] City HospitalComment on above:Performed By: #### CBCA #### [facility] ([facility]) [address] [place] [address] VIRLYMPHOCYTES ABSOLUTE COUNT (10*3/UL) BY AUTOMATED COUNT2.6 10*3/uLNormal1.0-3.5ProMedTrinity Health System HospitalComment on above:Performed By: #### CBCA #### [facility] ([facility]) [address] [place] [address] VIRLYMPHOCYTES RELATIVE PERCENT BY AUTOMATED COUNT33.5 %Normal [facility]MMercy [facility] HospitalComment on above:Performed By: #### CBCA #### [facility] ([facility]) [address] [place] [address] VIRMCH (RBC) [Entitic mass]30.7 vzFyvoba01-66ZhrAaolkx [place] City HospitalComment on above:Performed By: #### CBCA #### [facility] ([facility]) [address] [place] [address] VIRMCHC (RBC) [Mass/Vol]34.3 g/bGYoxfyw82-95BvaUbvoij [place] HospitalComment on above:Performed By: #### CBCA #### [facility] ([facility]) [address] [place] [address] VIRMCV (RBC) [Entitic vol]89 sKWncifd46-479KnsNlgtwf [place] HospitalComment on above:Performed By: #### CBCA #### [facility] ([facility]) [address] [place] [address] VIRMONOCYTES ABSOLUTE COUNT (10*3/UL) BY AUTOMATED COUNT0.5 10*3/uLNormal0.0-0.9ProMercy Health St. Joseph Warren HospitalComment on above:Performed By: #### CBCA #### [facility] ([facility]) [address] [place] [address] VIRMONOCYTES RELATIVE PERCENT BY AUTOMATED COUNT6.3 %Normal ProMMercy [facility] St. Charles Hospital HospitalComment on above:Performed By: #### CBCA #### [facility] ([facility]) [address] [place] [address] VIRNEUTROPHILS ABSOLUTE COUNT BY AUTOMATED COUNT4.4 10*3/uL Normal1.5-6.6ProCleveland Clinic Euclid Hospital HospitalComment on above:Performed By: #### CBCA #### [facility] ([facility]) [address] [place] [address] VIRNEUTROPHILS RELATIVE PERCENT BY AUTOMATED COUNT56.4 %Normal [facility] HospitalComment on above:Performed By: #### CBCA #### [facility] ([facility]) [address] [place] [address] VIRPlatelet mean volume (Bld) [Entitic vol]7.5 fLNormal7-[address] [facility] HospitalComment on above:Performed By: #### CBCA #### [facility] ([facility]) [address] [place] [address] VIRPlatelets (Bld) [#/Vol]244 10*3/vRLcxbkn730-509NqkOyqtuo [place] City HospitalComment on above:Performed By: #### CBCA #### [facility] ([facility]) [address] [place] [address] VIRRBC COUNT3.81 X10E12/LNormal3.8-5.2PChillicothe [facility] Comment on above:Performed By: #### CBCA #### [facility] ([facility]) [address] [place] [address] VIRWBC (Bld) [#/Vol]7.7 10*3/uLNormal4-11ProCleveland Clinic Euclid Hospital HospitalComment on above:Performed By: #### CBCA #### [facility] ([facility]) [address] [place] [address] VIRBASOPHILS ABSOLUTE COUNT (10*3/UL) BY AUTOMATED COUNT0.1 10*3/uLNormal0.0-0.2PKettering Health SpringfieldComment on above:Performed By: #### CBCA #### [facility] ([facility]) [address] [place] [address] VIRBASOPHILS RELATIVE PERCENT BY AUTOMATED COUNT1.0 %Normal Berger HospitalComment on above:Performed By: #### CBCA #### [facility] ([facility]) [address] [place] [address] VIRCELLAVISION DIFFERENTIAL TYPEAUTOMATED DIFFERENTIALNormal ProMMercy Health St. [facility] HospitalComment on above:Performed By: #### CBCA #### [facility] ([facility]) [address] [place] [address] VIREosinophils (Bld) [#/Vol]0.1 10*3/uLNormal0.0-0.4ProCleveland Clinic Euclid Hospital HospitalComment on above:Performed By: #### CBCA #### [facility] ([facility]) [address] [place] [address] VIREOSINOPHILS RELATIVE PERCENT BY AUTOMATED COUNT2.1 %Normal ProMMer[facility] HospitalComment on above:Performed By: #### CBCA #### [facility] ([facility]) [address] [place] [address] VIRErythrocyte distribution width (RBC) [Ratio]13.5 %Normal 11.5-15ProCleveland Clinic Euclid Hospital HospitalComment on above:Performed By: #### CBCA #### [facility] ([facility]) [address] [place] [address] VIRHematocrit (Bld) [Volume fraction]38.7 %Yfdmtg31-58RytSnqxzb [place] HospitalComment on above:Performed By: #### CBCA #### [facility] ([facility]) [address] [place] [address] VIRHemoglobin (Bld) [Mass/Vol]13.2 g/sRIcivdp89.7-15.5ProMedTrinity Health System HospitalComment on above:Performed By: #### CBCA #### [facility] ([facility]) [address] [place] [address] VIRLYMPHOCYTES ABSOLUTE COUNT (10*3/UL) BY AUTOMATED COUNT1.7 10*3/uLNormal1.0-3.5PChillicothe VA Medical Center HospitalComment on above:Performed By: #### CBCA #### [facility] ([facility]) [address] [place] [address] VIRLYMPHOCYTES RELATIVE PERCENT BY AUTOMATED COUNT24.3 %Normal ProMMer[facility] HospitalComment on above:Performed By: #### CBCA #### [facility] ([facility]) [address] [place] [address] VIRMCH (RBC) [Entitic mass]31.0 pvLcfutf21-83TlhLsszzs [place] City HospitalComment on above:Performed By: #### CBCA #### [facility] ([facility]) [address] [place] [address] VIRMCHC (RBC) [Mass/Vol]34.0 g/bINrjcfe47-43SmxPhoryz [place] [facility] HospitalComment on above:Performed By: #### CBCA #### [facility] ([facility]) [address] [place] [address] VIRMCV (RBC) [Entitic vol]91 sDHmlptt99-119WysJlukbr [place] [facility] HospitalComment on above:Performed By: #### CBCA #### [facility] ([facility]) [address] [place] [address] VIRMONOCYTES ABSOLUTE COUNT (10*3/UL) BY AUTOMATED COUNT0.4 10*3/uLNormal0.0-0.9Pro[facility] HospitalComment on above:Performed By: #### CBCA #### [facility] ([facility]) [address] [place] [address] VIRMONOCYTES RELATIVE PERCENT BY AUTOMATED COUNT6.1 %Normal [facility] HospitalComment on above:Performed By: #### CBCA #### [facility] ([facility]) [address] [place] [address] VIRNEUTROPHILS ABSOLUTE COUNT BY AUTOMATED COUNT4.7 10*3/uL Normal1.5-6.6ProWooster Community Hospitalca [place] HospitalComment on above:Performed By: #### CBCA #### [facility] ([facility]) [address] [place] [address] VIRNEUTROPHILS RELATIVE PERCENT BY AUTOMATED COUNT66.5 %Normal [facility] HospitalComment on above:Performed By: #### CBCA #### [facility] ([facility]) [address] [place] [address] VIRPlatelet mean volume (Bld) [Entitic vol]8.2 fLNormal7-12 [facility] HospitalComment on above:Performed By: #### CBCA #### [facility] ([facility]) [address] [place] [address] VIRPlatelets (Bld) [#/Vol]234 10*3/dFFtrvhi763-078BcmLzozib [place] HospitalComment on above:Performed By: #### CBCA #### [facility] ([facility]) [address] [place] [address] VIRRBC COUNT4.24 X10E12/LNormal3.8-5.2PIberia Medical Centerica [facility] Comment on above:Performed By: #### CBCA #### [facility] ([facility]) [address] [place] [address] VIRWBC (Bld) [#/Vol]7.1 10*3/uLNormal4-11ProMercy Health St. Joseph Warren HospitalComment on above:Performed By: #### CBCA #### [facility] ([facility]) [address] [place] [address] VIRCBC auto differentialon [id number] (Bld) [#/Vol]0.1 10*3/uL0.0 - 0.2 10*3/uLProPomerene Hospital SystemBasophils/100 WBC (Bld)1.5 % UK HealthcareDifferential cell count method Nom (Bld)AUTOMATED DIFFERENTIALUK HealthcareEosinophils (Bld) [#/Vol]0.2 10*3/uL0.0 - 0.4 10*3/uLUK HealthcareEosinophils/100 WBC (Bld)2.3 %UK HealthcareErythrocyte distribution width (RBC) [Ratio]13.5 %11.5 - 15 %[facility] SystemHematocrit (Bld) [Volume fraction]34.1 %Low35 - 47 %[facility] SystemHemoglobin (Bld) [Mass/Vol]11.7 g/dL11.7 - 15.5 g/dLUK HealthcareInterpretation and review of laboratory resultsAbnormalUK HealthcareLymphocytes (Bld) [#/Vol]2.6 10*3/uL1.0 - 3.5 10*3/[facility]ension MacombLymphocytes/100 WBC (Bld)33.5 %UK HealthcareMCH (RBC) [Entitic mass]30.7 pg27 - 34 [facility] Medical CenterMCHC (RBC) [Mass/Vol]34.3 g/dL32 - 36 g/dLUK HealthcareMCV (RBC) [Entitic vol]89 fL80 - 100 fL UK HealthcareMonocytes (Bld) [#/Vol]0.5 10*3/uL0.0 - 0.9 10*3/uL UK HealthcareMonocytes/100 WBC (Bld)6.3 %[facility] Neutrophils (Bld) [#/Vol]4.4 10*3/uL1.5 - 6.6 10*3/[facility] Neutrophils/100 WBC (Bld)56.4 %UK HealthcarePlatelet mean volume (Bld) [Entitic vol]7.5 fL7 - 12 [facility] HealthPlatelets (Bld) [#/Vol]244 10*3/[facility] MacombRBC (Bld) [#/Vol]3.81 10*6/[facility]ension MacombWBC LM Ql (Sput)7.7Wills Eye HospitalBasophils (Bld) [#/Vol]0.1 10*3/uL0.0 - 0.2 10*3/[facility] MacombBasophils/100 WBC (Bld)1 %UK HealthcareDifferential cell count method Nom (Bld) AUTOMATED DIFFERENTIALUK HealthcareEosinophils (Bld) [#/Vol]0.1 10*3/uL0.0 - 0.4 10*3/[facility]ension MacombEosinophils/100 WBC (Bld)2.1 % UK HealthcareErythrocyte distribution width (RBC) [Ratio]13.5 %11.5 - 15 %UK HealthcareHematocrit (Bld) [Volume fraction]38.7 %35 - 47 % UK HealthcareHemoglobin (Bld) [Mass/Vol]13.2 g/dL11.7 - 15.5 g/dL UK HealthcareLymphocytes (Bld) [#/Vol]1.7 10*3/uL1.0 - 3.5 10*3/uL UK HealthcareLymphocytes/100 WBC (Bld)24.3 %[facility] HospitalH (RBC) [Entitic mass]31 pg27 - 34 [facility] Medical CenterMCHC (RBC) [Mass/Vol] 34 g/dL32 - 36 g/dLUK HealthcareMCV (RBC) [Entitic vol]91 fL80 - 100 [facility] HealthMonocytes (Bld) [#/Vol]0.4 10*3/uL0.0 - 0.9 10*3/uL UK HealthcareMonocytes/100 WBC (Bld)6.1 %[facility] Neutrophils (Bld) [#/Vol]4.7 10*3/uL1.5 - 6.6 10*3/uLUK Healthcare Neutrophils/100 WBC (Bld)66.5 %UK HealthcarePlatelet mean volume (Bld) [Entitic vol]8.2 fL7 - 12 [facility]helps HealthPlatelets (Bld) [#/Vol]234 10*3/uLUK HealthcareRBC (Bld) [#/Vol]4.24 10*6/Ascension MacombWBC LM Ql (Sput)7.1PVeterans Affairs Pittsburgh [facility] COMPREHENSIVE METABOLIC PANELon 74-96-5894Pmqweai [Mass/Vol]3.4 g/dLNormal 3.2-5.3PKettering Health SpringfieldComment on above:Performed By: #### CMP #### [facility] ([facility]) [address] [place] [address] VIRALP [Catalytic activity/Vol]104 U/EPytsbo35-979DcgAlejitBerger HospitalComment on above:Performed By: #### CMP #### [facility] ([facility]) [address] [place] [address] VIRALT [Catalytic activity/Vol]10 U/LNormal<=31Pro[facility]arias HospitalComment on above:Performed By: #### CMP #### [facility] ([facility]) [address] [place] [address] VIRAnion gap [Moles/Vol]11 mmol/LNormal5-15[facility] HospitalComment on above:Performed By: #### CMP #### [facility] ([facility]) [address] [place] [address] VIRAST [Catalytic activity/Vol]11 U/LNormal<=41[facility] HospitalComment on above:Performed By: #### CMP #### [facility] ([facility]) [address] [place] [address] VIRBilirubin [Mass/Vol]0.4 mg/dLNormal0.3-1.2ProMedTrinity Health System HospitalComment on above:Performed By: #### CMP #### [facility] ([facility]) [address] [place] [address] VIRCalcium [Mass/Vol]8.1 mg/dLLow8.5-10.5PChillicothe VA Medical Center HospitalComment on above:Performed By: #### CMP #### [facility] ([facility]) [address] [place] [address] VIRChloride [Moles/Vol]101 mmol/KXwjahd55-832IspIelore [place] HospitalComment on above:Performed By: #### CMP #### [facility] ([facility]) [address] [place] [address] VIRCO2 [Moles/Vol]21 mmol/MKqg56-22SbwNwagua [facility] [facility] Comment on above:Performed By: #### CMP #### [facility] ([facility]) [address] [place] [address] VIRCreatinine [Mass/Vol]1.40 mg/dLHigh0.40-1.00ProC[facility] Clinic [facility]ucl[facility] Hospital HospitalComment on above:Result Comment: METHOD TRACEABLE TO IDMS STANDARD Performed By: #### CMP #### [facility] ([facility]) [address] [place] [address] VIRGFR/1.73 sq M.predicted among non-blacks MDRD (S/P/Bld) [Vol rate/Area]47 mL/min/{1.73_m2}Low>=60ProMedica Carias HospitalComment on above: Result Comment: Reported eGFR is based on the CKD-EPI 2020 equation that does not use a race coefficient.Performed By: #### CMP #### [facility] ([facility]) [address] [place] [address] VIRGlucose [Mass/Vol]640 mg/dLCritically mmzj94-48LhmXkjpdw [place] HospitalComment on above:Performed By: #### CMP #### [facility] ([facility]) [address] [place] [address] VIRPotassium [Moles/Vol]4.3 mmol/LNormal3.5-5.0Pro[facility] [place] [facility] HospitalComment on above:Performed By: #### CMP #### [facility] ([facility]) [address] [place] [address] VIRProtein [Mass/Vol]6.0 g/dLNormal6.0-8.0ProWooster Community Hospitalca [place] HospitalComment on above:Performed By: #### CMP #### [facility] ([facility]) [address] [place] [address] VIRSodium [Moles/Vol]133 mmol/WIiq941-658MfrYvemlz [place] HospitalComment on above:Performed By: #### CMP #### [facility] ([facility]) [address] [place] [address] VIRUrea nitrogen [Mass/Vol]21 mg/dLNormal5-23Pro[facility] [place] [facility] HospitalComment on above:Performed By: #### CMP #### [facility] ([facility]) [address] [place] [address] VIRComprehensive metabolic panelOrdered By: Etelvina Richards on [id number] [Mass/Vol]3.4 g/dL3.2 - 5.3 g/dLProAthens-Limestone Hospital Health SystemALP [Catalytic activity/Vol]104 U/L39 - 130 U/LProMedica Health SystemALT No additional P-5'-P [Catalytic activity/Vol]10 U/LNINF - 31 U/LProMedica Health SystemAnion gap [Moles/Vol]11 mmol/L5 - 15 mmol/LProMedica Health SystemAST [Catalytic activity/Vol]11 U/LNINF - 41 U/LProMedica Health SystemBilirubin [Mass/Vol]0.4 mg/dL0.3 - 1.2 mg/dLProPomerene Hospital SystemCalcium [Mass/Vol]8.1 mg/dLLow8.5 - 10.5 mg/dLProPomerene Hospital SystemChloride [Moles/Vol]101 mmol/L98 - 109 mmol/LProMedica Health SystemCO2 [Moles/Vol]21 mmol/LLow22 - 32 mmol/L UK HealthcareCreatinine [Mass/Vol]1.4 mg/dLHigh0.40 - 1.00 mg/dL UK HealthcareComment on above:METHOD TRACEABLE TO IDRI STANDARDEGFR Non-Race Qaxglbnzi28Plf- PINMarietta Osteopathic Clinic SystemComment on above:Reported eGFR is based on the CKD-EPI 2020 equation that does not use a race coefficient. Glucose [Mass/Vol]640 mg/dLCritically high65 - 99 mg/dLParkwood Hospital System Interpretation and review of laboratory resultsAbnormalProPomerene Hospital System Potassium [Moles/Vol]4.3 mmol/L3.5 - 5.0 mmol/LProMedica Health SystemProtein [Mass/Vol]6 g/dL6.0 - 8.0 g/dLAdams County Regional Medical Center Health SystemSodium [Moles/Vol]133 mmol/YYtl597 - 146 mmol/LPrSullivan County Memorial Hospitalica Health SystemUrea nitrogen [Mass/Vol]21 mg/dL 5 - 23 mg/dLParkwood Hospital SystemProPomerene Hospital SystemELECTROLYTE PANELon 79-27-7440Ybbmp gap [Moles/Vol]6 mmol/LNormal5-15ProAthens-[facility] Comment on above:Performed By: #### BEDG #### [facility] ([facility]) [address] [place] [address] VIRChloride [Moles/Vol]110 mmol/MPfdz31-191YwuKtnnmg Carias HospitalComment on above:Performed By: #### BEDG #### [facility] ([facility]) [address] [place] [address] VIRCO2 [Moles/Vol]20 mmol/AJmj08-32UkwCptjgz [facility] Comment on above:Performed By: #### BEDG #### [facility] ([facility]) [address] [place] [address] VIRPotassium [Moles/Vol]4.4 mmol/LNormal3.5-5.0[facility] HospitalComment on above:Performed By: #### BEDG #### [facility] ([facility]) [address] [place] [address] VIRSodium [Moles/Vol]136 mmol/MFkvqrq048-140GjfMqarkp [facility] HospitalComment on above:Performed By: #### BEDG #### [facility] ([facility]) [address] [place] [address] VIRELECTROLYTE PANELELEC ELECTROLYTE PANEL CancelledNormal [facility] AdministrationComment on above:Order Comment: See [id number] gap [Moles/Vol]7 mmol/LNormal5-15[facility] HospitalComment on above: Performed By: #### BEDG #### [facility] ([facility]) [address] [place] [address] VIRChloride [Moles/Vol]109 mmol/DSxxagc38-164TfpUwwxsy [facility] HospitalComment on above:Performed By: #### BEDG #### [facility] ([facility]) [address] [place] [address] VIRCO2 [Moles/Vol]21 mmol/ASel38-26OnfQotyyf [facility] Comment on above:Performed By: #### BEDG #### [facility] ([facility]) [address] [facility] [place] [address] VIRPotassium [Moles/Vol]4.4 mmol/LNormal3.5-5.0[facility] HospitalComment on above:Performed By: #### BEDG #### [facility] ([facility]) [address] [place] [address] VIRSodium [Moles/Vol]137 mmol/EJkdpci865-232SyuTzocln [facility] HospitalComment on above:Performed By: #### BEDG #### [facility] [facility] ([facility]) [address] [place] [address] VIRAnion gap [Moles/Vol]8 mmol/LNormal5-15ProMedica Carias HospitalComment on above:Performed By: #### CMP #### [facility] ([facility]) [address] [place] [address] VIRChloride [Moles/Vol]107 mmol/KDnbilh60-158RepIuiygk Carias HospitalComment on above:Performed By: #### CMP #### [facility] ([facility]) [address] [place] [address] VIRCO2 [Moles/Vol]23 mmol/HQlhixe72-94OslSgijmy [facility] Comment on above:Performed By: #### CMP #### [facility] ([facility]) [address] [place] [address] VIRPotassium [Moles/Vol]4.2 mmol/LNormal3.5-5.0ProMedica Carias HospitalComment on above:Performed By: #### CMP #### [facility] ([facility]) [address] [place] [address] VIRSodium [Moles/Vol]138 mmol/JKjhaud260-934MufHxszie Carias HospitalComment on above:Performed By: #### CMP #### [facility] ([facility]) [address] [place] [address] VIRAnion gap [Moles/Vol]7 mmol/LNormal5-15ProMedica Carias HospitalComment on above:Performed By: #### CMP #### [facility] ([facility]) [address] [place] [address] VIRChloride [Moles/Vol]106 mmol/OIivsff54-357RjjBxjhja Carias HospitalComment on above:Performed By: #### CMP #### [facility] ([facility]) [address] [place] [address] VIRCO2 [Moles/Vol]24 mmol/MHesqqz02-67GwqXfmaep [facility] Comment on above:Performed By: #### CMP #### [facility] ([facility]) [address] [place] [address] VIRPotassium [Moles/Vol]4.2 mmol/LNormal3.5-5.0ProMedica Carias HospitalComment on above:Performed By: #### CMP #### [facility] ([facility]) [address] [place] [address] VIRSodium [Moles/Vol]137 mmol/XFakxqr719-749BuySokvti Carias HospitalComment on above:Performed By: #### CMP #### [facility] ([facility]) [address] [place] [address] VIRAnion gap [Moles/Vol]11 mmol/LNormal5-15ProMedica Carias HospitalComment on above:Performed By: #### CMP #### [facility] ([facility]) [address] [place] [address] VIRChloride [Moles/Vol]105 mmol/IGgaseq03-613RdtZcataw Carias HospitalComment on above:Performed By: #### CMP #### [facility] ([facility]) [address] [place] [address] VIRCO2 [Moles/Vol]21 mmol/RAwd50-90TjpLbjaubKettering Health Springfield Comment on above:Performed By: #### CMP #### [facility] ([facility]) [address] [place] [address] VIRPotassium [Moles/Vol]3.8 mmol/LNormal3.5-5.0ProMercy Health St. Joseph Warren HospitalComment on above:Performed By: #### CMP #### [facility] ([facility]) [address] [place] [address] VIRSodium [Moles/Vol]137 mmol/BBuevng847-182WstNrkhln [place] HospitalComment on above:Performed By: #### CMP #### [facility] ([facility]) [address] [place] [address] VIRELECTROLYTE PANELELEC ELECTROLYTE PANEL CancelledNoal Berger HospitalElectrolyte panelon 19-04-6462Ojanf gap [Moles/Vol]7 mmol/L5 - 15 mmol/LProMedica Health SystemChloride [Moles/Vol]109 mmol/L98 - 109 mmol/LProMedica Health SystemCO2 [Moles/Vol]21 mmol/LLow22 - 32 mmol/LProMedica Health SystemInterpretation and review of laboratory resultsAbnormalProMedica Health SystemPotassium [Moles/Vol]4.4 mmol/L3.5 - 5.0 mmol/LProMedica Health SystemSodium [Moles/Vol]137 mmol/L134 - 146 mmol/LProMedica Health System ProMedica Health SystemAnion gap [Moles/Vol]8 mmol/L5 - 15 mmol/LProMedica Health SystemChloride [Moles/Vol]107 mmol/L98 - 109 mmol/LProMedica Health SystemCO2 [Moles/Vol]23 mmol/L22 - 32 mmol/LProMedica Health System Interpretation and review of laboratory resultsNormalAdams [facility] Potassium [Moles/Vol]4.2 mmol/L3.5 - 5.0 mmol/LProMedica Health SystemSodium [Moles/Vol]138 mmol/L134 - 146 mmol/LProMedica Health SystemProMedica Health SystemAnion gap [Moles/Vol]7 mmol/L5 - 15 mmol/LProMedica Health SystemChloride [Moles/Vol]106 mmol/L98 - 109 mmol/LProMedica Health SystemCO2 [Moles/Vol]24 mmol/L22 - 32 mmol/LProMedica Health SystemInterpretation and review of laboratory resultsNormalProMedica Health SystemPotassium [Moles/Vol]4.2 mmol/L 3.5 - 5.0 mmol/LProMedica Health SystemSodium [Moles/Vol]137 mmol/L134 - 146 mmol/LProMedica Health SystemProMedica Health SystemAnion gap [Moles/Vol]11 mmol/L5 - 15 mmol/LProMedica Health SystemChloride [Moles/Vol]105 mmol/L98 - 109 mmol/LProMedica Health SystemCO2 [Moles/Vol]21 mmol/LLow22 - 32 mmol/LProMedica Health SystemInterpretation and review of laboratory resultsAbnormalProWooster Community Hospitalca Health SystemPotassium [Moles/Vol]3.8 mmol/L3.5 - 5.0 mmol/LProMedica Health SystemSodium [Moles/Vol]137 mmol/L134 - 146 mmol/LProMedica Health System ProMedica Health SystemHEMOGLOBIN A1Con 11-80-2982Gmpxvym [Mass/Vol]344 mg/dL NormalProMercy Health St. Joseph Warren HospitalComment on above:Performed By: #### [id number] #### [facility] ([facility]) [address] [place] [address] QXJMlD9v (Bld) [Mass fraction]13.6 %High4.4-5.6ProMercy Health St. Joseph Warren HospitalComment on above:Result Comment: ADA Guidelines Result HgbA1c Normal : less than 5.7 % Prediabetes : 5.7 % to 6.4 % Diabetes : > 6.4 % Use with caution in patients with abnormal hemoglobin variants as the half-life of red blood cells and in vivo glycation rates are affected.Performed By: #### [id number] #### [facility] ([facility]) [address] [place] [address] VIRHemoglobin A1con 02-71-4186Djudrgj glucose Estimated from glycated hemoglobin (Bld) [Mass/Vol]344 mg/dLUK HealthcareHbA1c (Bld) [Mass fraction]13.6 %High4.4 - 5.6 %UK HealthcareComment on above:ADA Guidelines Result HgbA1c Normal : less than 5.7 % Prediabetes : 5.7 % to 6.4 % Diabetes : > 6.4 % Use with caution in patients with abnormal hemoglobin variants as the half-life of red blood cells and in vivo glycation rates are affected. Interpretation and review of laboratory resultsAbnoChildren's Hospital of Wisconsin– MilwaukeeNo Panel Informationon 56-38-4636Bnuuucqktqdjdt and review of laboratory resultsAbnoPsychiatric hospital, demolished 2001 WITH REFLEXon 53-32-9884GRI7.02 uIU/mLNormal0.49-4.67Berger HospitalComment on above:Performed By: #### TSHR #### [facility] ([facility]) [address] [place] [address] VIRT with Reflexon 17-80-3352Kqeoexsjmwowxl and review of laboratory resultsNoMission Family Health Center Qn3.02 m[IU]/LProMedica [facility]30on 52-60-900203Nfm patient is Moderately Stable - Low risk of patient condition declining or worsening The patient's goals for the shift include comfort The clinical goals for the shift include safetyNormalUniversity of Ut Health North Campus TylerBASIC METABOLIC PANELon 43-40-2286Pbnto gap [Moles/Vol]9 mmol/L Normal7-20UnMercy Health Defiance HospitalComment on above:Performed By: #### [id number] #### [facility] ([facility]) [address] [place], [place] [address]Ksbnhpj [Mass/Vol]8.4 mg/dLLow8.6-10.3UnMercy Health Defiance HospitalComment on above:Performed By: #### [id number] #### [facility] ([facility]) [address] [place] [address]Zmawcujj [Moles/Vol]109 mmol/KBkxv86-246GbysuqkpnlMercy Health Defiance HospitalComment on above:Performed By: #### [id number] #### [facility] ([facility]) [address] [place] [address]QD9 [Moles/Vol]28 mmol/WQuazpf46-94XltnbxgbfpMercy Health Defiance HospitalComment on above:Performed By: #### [id number] #### [facility] ([facility]) [address] [place] [address]Oksocbivcq [Mass/Vol]1.26 mg/dLHigh0.60-1.20UnMercy Health Defiance HospitalComment on above:Performed By: #### [id number] #### [facility] ([facility]) [address] [place] [address]XQQYHPSVNN FILTRATION RATE ML/MIN/1.73 SQ M.PRJUMMWCR90.0 mL/min/1.73m*2Low>60.0UnMercy Health Defiance HospitalComment on above:Result Comment: [facility]???s estimated glomerular filtration rate (eGFR) will [...] potential consequences that do not disproportionately affect anyone group of individuals.Performed By: #### [id number] #### [facility] ([facility]) [address] [place] [address]Dfsveqi [Mass/Vol]108 mg/zSHaiq76-391CdpuibwcafMercy Health Defiance HospitalComment on above:Performed By: #### [id number] #### [facility] ([facility]) [address] [place] [address]Sjwgizqdu [Moles/Vol]4.1 mmol/LNormal3.5-5.1UnMercy Health Defiance HospitalComment on above:Performed By: #### [id number] #### [facility] ([facility]) [address] [place] [address]Vhxkyf [Moles/Vol]142 mmol/KRdzcqc922-723BewnckjvruMercy Health Defiance HospitalComment on above:Performed By: #### [id number] #### [facility] ([facility]) [address] [place] [address]Mmbq nitrogen [Mass/Vol]28 mg/dLHigh7-25UnMercy Health Defiance HospitalComment on above:Performed By: #### [id number] #### [facility] ([facility]) [address] [place] [address]IMEH NITROGEN/CREATININE (MASS RATIO) IN SER/PLAS22.2Normal [facility] HospitalComment on above:Performed By: #### [id number] #### [facility] ([facility]) [address] [place], [place] [address]VVW WITH AUTO DIFFERENTIALon 05-88-7924Ujgtkflqn (Bld) [#/Vol] 0.06 10*3/uLNormal0.00-0.20UnMercy Health Defiance HospitalComment on above: Performed By: #### [id number] ####[facility] ([facility])[address] [facility] H[place]Bet[place], [place] [address]Jouwvofxy/100 WBC (Bld)1.1 %High0.0-1.0UnMercy Health Defiance HospitalComment on above:Performed By: #### [id number] ####[facility] ([facility])[address] [place], [place] [address]Vksgjzbefcb (Bld) [#/Vol]0.19 10*3/uL Normal0.00-0.50UnMercy Health Defiance HospitalComment on above:Performed By: #### [id number] ####[facility] ([facility])[address] [place] [address] Eosinophils/100 WBC (Bld)3.5 %Normal0.0-6.0UnMercy Health Defiance Hospital Comment on above:Performed By: #### [id number] ####[facility] ([facility])[address] [place], [place] [address]Wnamyaiufxe distribution width (RBC) [Ratio]13.5 % Ypqehh38.5-15.0UnMercy Health Defiance HospitalComment on above:Performed By: #### [id number] ####[facility] ([facility])[address] [place] [address] ERYTHROCYTE MEAN CORPUSCULAR HEMOGLOBIN CONCENTRATION (G/DL) BY BAOZVKSEH40.4 g/fWMyexyv80.0-35.0UnMercy Health Defiance HospitalComment on above:Performed By: #### [id number] ####[facility] ([facility])[address] [place], [place] [address]Ehfrucsjtv (Bld) [Volume fraction]31.5 %Low36.0-45.0UnMercy Health Defiance HospitalComment on above:Performed By: #### [id number] ####[facility] ([facility])[address] [place], [place] [address]Hyfnpghjum (Bld) [Mass/Vol]10.2 g/dL Low12.0-15.0UnMercy Health Defiance HospitalComment on above:Performed By: #### [id number] ####[facility] ([facility] [place] [address] Immature granulocytes (Bld) [#/Vol]0.02 10*3/uLNormal0.00-0.20UnMercy Health Defiance HospitalComment on above:Performed By: #### [id number] ####[facility] ([facility])[address] [place], [place] [address]Qhrnvwuf granulocytes/100 WBC (Bld)0.4 %Normal0.0-1.0UnMercy Health Defiance HospitalComment on above: Performed By: #### [id number] ####[facility] ([facility])[address] [place], [place] [address]Cmrothyznea (Bld) [#/Vol]2.24 10*3/uLNormal1.20-4.00 [facility] HospitalComment on above:Performed By: #### [id number] ####[facility] ([facility])[address] [place] [address]Telazkibynp/100 WBC (Bld)41.0 %Ojcdjz19.0-45.0UnMercy Health Defiance HospitalComment on above:Performed By: #### [id number] ####[facility] ([facility])[address] [place], [place] [address]IMW (RBC) [Entitic mass]30.4 zoFwiczv12.0-33.0UnMercy Health Defiance HospitalComment on above:Performed By: #### [id number] ####[facility] ([facility])[address] [place], [place] [address]ZVE (RBC) [Entitic vol] 93.8 wGLvlzqh87.0-98.0UnMercy Health Defiance HospitalComment on above: Performed By: #### [id number] ####[facility] ([facility])[address] [place], [place] [address]Luogmkpgx (Bld) [#/Vol]0.48 10*3/uLNormal0.10-1.00UnMercy Health Defiance HospitalComment on above:Performed By: #### [id number] ####[facility] ([facility])[address] [place], [place] [address]Bueedundd/100 WBC (Bld) 8.8 %Normal5.0-12.0UnMercy Health Defiance HospitalComment on above:Performed By: #### [id number] ####[facility] ([facility])[address] [place], [place] [address]Iodsqucjtkp (Bld) [#/Vol]2.48 10*3/uLNormal1.60-7.60UnMercy Health Defiance HospitalComment on above:Performed By: #### [id number] ####[facility] ([facility])[address] [place], [place] [address]Hefmpebdoxx/100 WBC (Bld)45.2 %Normal 40.0-72.0UnMercy Health Defiance HospitalComment on above:Performed By: #### [id number] ####[facility] ([facility])[address] [place] [address]DGTJ (PER 100 WBCS) BY AUTOMATED COUNT0.0 %Byrczr8BatybrgiwmMercy Health Defiance Hospital Comment on above:Performed By: #### [id number] ####[facility] ([facility])[address] [place] [address]FKNRAVRAB (10*3/UL) IN BLOOD AUTOMATED [id number] 10*3/lJRvgsau042-990SrpnruvvknMercy Health Defiance HospitalComment on above: Performed By: #### [id number] ####[facility] ([facility])[address] [place] [address]ZVV (Bld) [#/Vol]3.36 10*6/uLLow3.80-5.00UnMercy Health Defiance HospitalComment on above:Performed By: #### [id number] ####[facility] ([facility])[address] [address]ABZ (Bld) [#/Vol]5.47 10*3/uLNormal 4.00-10.60UnMercy Health Defiance HospitalComment on above:Performed By: #### [id number] ####[facility] ([facility])[address] [place] [address]KHNY GLUCOSE METER UNSOLICITED RESULTSon 33-70-9699Udzpevu [Mass/Vol]115 mg/dLHigh 70-105UnMercy Health Defiance HospitalComment on above:Order Comment: Waived Testing in the ED is performed under the ED CLIA certificate #[id number].Result Comment: lhagemaPerformed By: #### [id number] #### [facility] ([facility] [address] [place] [address]Rxhmjrc [Mass/Vol]123 mg/zQMtmx40-362GvodaljkpaMercy Health Defiance HospitalComment on above:Order Comment: Waived Testing in the ED is performed under the ED CLIA certificate #[id number].Result Comment: [email or web address] Performed By: #### [id number] ####[facility] ([facility])[address] [place], [place] [address]TXXDD METABOLIC PANELon 79-86-4146Dndzw gap [Moles/Vol]10 mmol/LNormal7-20UnMercy Health Defiance HospitalComment on above:Performed By: #### [id number] #### [facility] ([facility]) [address] [place], [place] [address]Uyebrvf [Mass/Vol]8.2 mg/dLLow8.6-10.3UnMercy Health Defiance HospitalComment on above:Performed By: #### [id number] #### [facility] ([facility]) [address] [place], [place] [address]Lvpgbsko [Moles/Vol]106 mmol/VGezyti45-706WnqkqjanmnMercy Health Defiance HospitalComment on above:Performed By: #### [id number] #### [facility] ([facility]) [address] [place], [place] [address]RZ3 [Moles/Vol]26 mmol/GZxjkzl14-53FiuyzymtivMercy Health Defiance HospitalComment on above:Performed By: #### [id number] #### [facility] ([facility]) [address] [place], [place] [address]Gxleqgtxqz [Mass/Vol]1.75 mg/dLHigh0.60-1.20UnMercy Health Defiance HospitalComment on above:Performed By: #### [id number] #### [facility] ([facility]) [address] [place], [place] [address]IUAZXSDTBX FILTRATION RATE ML/MIN/1.73 SQ M.KNEKQSQTO68.7 mL/min/1.73m*2Low>60.0UnMercy Health Defiance HospitalComment on above:Result Comment: [facility]???s estimated glomerular filtration rate (eGFR) will [...] potential consequences that do not disproportionately affect anyone group of individuals.Performed By: #### [id number] #### [facility] ([facility]) [address] [place], [place] [address]Jbamysz [Mass/Vol]134 mg/hHRvrd92-367QmpmqzfocbMercy Health Defiance HospitalComment on above:Performed By: #### [id number] #### [facility] ([facility]) [address] [place], [place] [address]Qbhexcpvh [Moles/Vol]4.0 mmol/LNormal3.5-5.1UnMercy Health Defiance HospitalComment on above:Performed By: #### [id number] #### [facility] ([facility]) [address] [place], [place] [address]Qitdxb [Moles/Vol]138 mmol/MFhrszb736-762ZskpzabrqeMercy Health Defiance HospitalComment on above:Performed By: #### [id number] #### [facility] ([facility]) [address] [place], [place] [address]Sjxz nitrogen [Mass/Vol]36 mg/dLHigh7-25UnMercy Health Defiance HospitalComment on above:Performed By: #### [id number] #### [facility] ([facility]) [address] [place], [place] [address]GODP NITROGEN/CREATININE (MASS RATIO) IN SER/PLAS20.6Normal [facility] HospitalComment on above:Performed By: #### [id number] #### [facility] ([facility]) [address] [place], [place] [address]EZSQVIT, IONIZEDon 54-69-3930JVCDBNG IONIZED (MMOL/L) IN BLOOD 1.23 mmol/LNormal1.15-1.33UnMercy Health Defiance HospitalComment on above: Performed By: #### [id number] #### [facility] ([facility]) [address] [facility] [place] [address]EWI WITH AUTO DIFFERENTIALon 42-58-3053Zqjfpntqa (Bld) [#/Vol] 0.04 10*3/uLNormal0.00-0.20UnMercy Health Defiance HospitalComment on above: Performed By: #### [id number] #### [facility] ([facility]) [address] [place] [address]Aqjtyzlft/100 WBC (Bld)0.6 %Normal0.0-1.0UnMercy Health Defiance HospitalComment on above:Performed By: #### [id number] #### [facility] ([facility]) [address] [place] [address]Kdjnovnqtoh (Bld) [#/Vol]0.17 10*3/uLNormal0.00-0.50UnMercy Health Defiance HospitalComment on above:Performed By: #### [id number] #### [facility] ([facility]) [address] [place], [place] [address]Hpuboglrwbz/100 WBC (Bld)2.7 %Normal0.0-6.0UnMercy Health Defiance HospitalComment on above:Performed By: #### [id number] #### [facility] ([facility]) [address] [place], [place] [address]Zvlfquiofor distribution width (RBC) [Ratio]13.4 %Normal 11.5-15.0UnMercy Health Defiance HospitalComment on above:Performed By: #### [id number] #### [facility] ([facility]) [address] [place], [place] [address]ZPWISRCPVTH MEAN CORPUSCULAR HEMOGLOBIN CONCENTRATION (G/DL) BY TWYRWNEGW61.9 g/dLLow32.0-35.0UnMercy Health Defiance HospitalComment on above:Performed By: #### [id number] #### [facility] ([facility]) [address] [place], [place] [address]Ntnfxbyjyz (Bld) [Volume fraction]31.3 %Low36.0-45.0UnMercy Health Defiance HospitalComment on above:Performed By: #### [id number] #### [facility] ([facility]) [address] [place] [address]Ftfkhmnpaq (Bld) [Mass/Vol]10.0 g/dLLow12.0-15.0UnMercy Health Defiance HospitalComment on above:Performed By: #### [id number] #### [facility] ([facility]) [address] [place] [address]Qrecghcl granulocytes (Bld) [#/Vol]0.02 10*3/uLNormal0.00-0.20 [facility] HospitalComment on above:Performed By: #### [id number] #### [facility] ([facility]) [address] [place] [address]Ewufmtza granulocytes/100 WBC (Bld)0.3 %Normal0.0-1.0UnMercy Health Defiance HospitalComment on above:Performed By: #### [id number] #### [facility] ([facility]) [address] [place] [address]Pujokjkledu (Bld) [#/Vol]1.83 10*3/uLNormal1.20-4.00UnMercy Health Defiance HospitalComment on above:Performed By: #### [id number] #### [facility] ([facility]) [address] [place] [address]Yrxnhjdbgxb/100 WBC (Bld)29.5 %Readdh88.0-45.0UnMercy Health Defiance HospitalComment on above:Performed By: #### [id number] #### [facility] ([facility]) [address] [place] [address]FLL (RBC) [Entitic mass]30.2 eyOmxkog44.0-33.0UnMercy Health Defiance HospitalComment on above:Performed By: #### [id number] #### [facility] ([facility]) [address] [place] [address]UZF (RBC) [Entitic vol]94.6 tQRbyabp90.0-98.0UnMercy Health Defiance HospitalComment on above:Performed By: #### [id number] #### [facility] ([facility] [address] [place] [address]Xeiwjeefo (Bld) [#/Vol]0.49 10*3/uLNormal0.10-1.00UnMercy Health Defiance HospitalComment on above:Performed By: #### [id number] #### [facility] ([facility]) [address] [place] [address]Lycgenpfj/100 WBC (Bld)7.9 %Normal5.0-12.0UnMercy Health Defiance HospitalComment on above:Performed By: #### [id number] #### [facility] ([facility]) [address] [place] [address]Uqwchchdbpw (Bld) [#/Vol]3.66 10*3/uLNormal1.60-7.60UnMercy Health Defiance HospitalComment on above:Performed By: #### [id number] #### [facility] [facility] ([facility]) [address] [place] [address]Yoaywpadvax/100 WBC (Bld)59.0 %Huawzy68.0-72.0UnMercy Health Defiance HospitalComment on above:Performed By: #### [id number] #### [facility] ([facility]) [address] [place] [address]SHPR (PER 100 WBCS) BY AUTOMATED COUNT0.0 %Hkyxnu7ZyghfgiwthMercy Health Defiance HospitalComment on above:Performed By: #### [id number] #### [facility] ([facility] [address] [place] [address]XZFFKLZUQ (10*3/UL) IN BLOOD AUTOMATED [id number] 10*3/uLNormal 150-400UnMercy Health Defiance HospitalComment on above:Performed By: #### [id number] #### [facility] ([facility] [address] [place] [address]MYF (Bld) [#/Vol]3.31 10*6/uLLow3.80-5.00UnMercy Health Defiance HospitalComment on above:Performed By: #### [id number] #### [facility] ([facility]) [address] [place] [address]ITM (Bld) [#/Vol]6.21 10*3/uLNormal4.00-10.60UnMercy Health Defiance HospitalComment on above:Performed By: #### [id number] #### [facility] ([facility]) [address] [place] [address]EAXG GLUCOSE METER UNSOLICITED RESULTSon 95-09-8810Etorwzz [Mass/Vol]237 mg/hJMulx79-549OjkgvjxjhnMercy Health Defiance HospitalComment on above:Order Comment: Waived Testing in the ED is performed under the ED CLIA certificate #[id number].Result Comment: [email or web address] Critical Value NotedPerformed By: #### [id number] ####[facility] ([facility])[address] [place] [address]Fpukyoc [Mass/Vol]213 mg/lIRxot68-744 [facility] HospitalComment on above:Order Comment: Waived Testing in the ED is performed under the ED CLIA certificate #[id number].Result Comment: [email or web address] By: #### [id number] #### [facility] ([facility]) [address] [place] [address]Owjzrxb [Mass/Vol]211 mg/mCPqtd87-100HqiswbdqyfMercy Health Defiance HospitalComment on above:Order Comment: Waived Testing in the ED is performed under the ED CLIA certificate #[id number].Result Comment: [email or web address] Performed By: #### [id number] #### [facility] ([facility]) [address] [place] [address]Hozqxic [Mass/Vol]160 mg/rEHfql85-619GkpyvlhrtoMercy Health Defiance HospitalComment on above:Order Comment: Waived Testing in the ED is performed under the ED CLIA certificate #[id number].Result Comment: [email or web address] Performed By: #### [id number] #### [facility] ([facility]) [address] [place] [address]ENBEVDNgi 94-73-8166Hlwvgfe [Mass/Vol]2.5 g/dLLow3.5-5.7 [facility] HospitalComment on above:Performed By: #### [id number] ####[facility] ([facility])[address] [place] [address]HYWXN METABOLIC PANELon 73-18-1597Stull gap [Moles/Vol]9 mmol/LNormal7-20UnMercy Health Defiance HospitalComment on above:Performed By: #### [id number] ####[facility] ([facility])[address] [place] [address]Ifqsnoh [Mass/Vol]6.6 mg/dLLow8.6-10.3 [facility] HospitalComment on above:Performed By: #### [id number] ####[facility] ([facility])[address] [place] [address]Xngyiemv [Moles/Vol]110 mmol/QLwkg73-911VplnoqhznfMercy Health Defiance HospitalComment on above:Performed By: #### [id number] ####[facility] ([facility])[address] [address]KB9 [Moles/Vol]23 mmol/COzvgvy37-56CcxrcpkmhsMercy Health Defiance HospitalComment on above:Performed By: #### [id number] ####[facility] ([facility])[address] [place] [address]Ljbkvhgkks [Mass/Vol]1.89 mg/dLHigh 0.60-1.20UnMercy Health Defiance HospitalComment on above:Performed By: #### [id number] ####[facility] ([facility])[address] [place] [address]XSQURPZZSR FILTRATION RATE ML/MIN/1.73 SQ M.QIEADKNYR05.6 mL/min/1.73m*2Low>60.0UnMercy Health Defiance HospitalComment on above:Result Comment: [facility]???s estimated glomerular filtration rate (eGFR) will [...] potential consequences that do not disproportionately affect anyone group of individuals. Performed By: #### [id number] ####[facility] ([facility])[address] [place], [place] [address]Xjkvfxc [Mass/Vol]164 mg/rKSbng74-852KvvysliwznMercy Health Defiance HospitalComment on above:Performed By: #### [id number] ####[facility] ([facility])[address] [place], [place] [address]Qwgnusatv [Moles/Vol]3.7 mmol/LNormal 3.5-5.1UnMercy Health Defiance HospitalComment on above:Performed By: #### [id number] ####[facility] ([facility])[address] [place], [place] [address]Plsshs [Moles/Vol]138 mmol/QLjojor310-062OdxxhcouyxMercy Health Defiance HospitalComment on above:Performed By: #### [id number] ####[facility] ([facility])[address] [place], [place] [address]Ohts nitrogen [Mass/Vol]32 mg/dLHigh7-25UnMercy Health Defiance HospitalComment on above:Performed By: #### [id number] ####[facility] ([facility])[address] [place], [place] [address]KQRO NITROGEN/CREATININE (MASS RATIO) IN SER/PLAS16.9NormalUniversMount St. Mary HospitalComment on above: Performed By: #### [id number] ####[facility] ([facility])[address] [place], [place] [address]LJC WITH AUTO DIFFERENTIALon 59-00-0959Xxdobozwd (Bld) [#/Vol]0.04 10*3/uLNormal0.00-0.20UnMercy Health Defiance HospitalComment on above: Performed By: #### [id number] ####[facility] ([facility])[address] [place], [place] [address]Psoiqnyse/100 WBC (Bld)0.5 %Normal0.0-1.0UnMercy Health Defiance HospitalComment on above:Performed By: #### [id number] ####[facility] ([facility])[address] [place], [place] [address]Irhpljhdmar (Bld) [#/Vol]0.09 10*3/uL Normal0.00-0.50UnMercy Health Defiance HospitalComment on above:Performed By: #### [id number] ####[facility] ([facility])[address] [place] [address] Eosinophils/100 WBC (Bld)1.2 %Normal0.0-6.0UnMercy Health Defiance Hospital Comment on above:Performed By: #### [id number] ####[facility] ([facility])[address] [place], [place] [address]Zybtnkcngej distribution width (RBC) [Ratio]13.5 % Heculk10.5-15.0UnMercy Health Defiance HospitalComment on above:Performed By: #### [id number] ####[facility] ([facility])[address] [place] [address] ERYTHROCYTE MEAN CORPUSCULAR HEMOGLOBIN CONCENTRATION (G/DL) BY JALJRNHEK87.7 g/aAEcfxmx84.0-35.0UnMercy Health Defiance HospitalComment on above:Performed By: #### [id number] ####[facility] ([facility])[address] [place], [place] [address]Heseladrpn (Bld) [Volume fraction]26.6 %Low36.0-45.0UnMercy Health Defiance HospitalComment on above:Performed By: #### [id number] ####[facility] ([facility])[address] [place], [place] [address]Lipvkgwlya (Bld) [Mass/Vol]8.7 g/dLLow 12.0-15.0UnMercy Health Defiance HospitalComment on above:Performed By: #### [id number] ####[facility] ([facility])[address] [place], [place] [address]Fiuwmoki granulocytes (Bld) [#/Vol]0.03 10*3/uLNormal0.00-0.20UnMercy Health Defiance HospitalComment on above:Performed By: #### [id number] ####[facility] ([facility])[address] [place], [place] [address]Woyrtisg granulocytes/100 WBC (Bld)0.4 %Normal0.0-1.0UnMercy Health Defiance HospitalComment on above:Performed By: #### [id number] ####[facility] ([facility])[address] [place] [address] Lymphocytes (Bld) [#/Vol]1.44 10*3/uLNormal1.20-4.00UnMercy Health Defiance HospitalComment on above:Performed By: #### [id number] ####[facility] ([facility])[address] [facility], [place] [address]Ntnpyhdoonn/100 WBC (Bld)19.6 %Low 20.0-45.0UnMercy Health Defiance HospitalComment on above:Performed By: #### [id number] ####[facility] ([facility])[address] [place], [place] [address]RRP (RBC) [Entitic mass]30.4 gsIwuyai43.0-33.0UnMercy Health Defiance Hospital Comment on above:Performed By: #### [id number] ####[facility] ([facility])[address] [facility] [place], [place] [address]AZI (RBC) [Entitic vol]93.0 kXKhzxqc04.0-98.0 [facility] HospitalComment on above:Performed By: #### [id number] ####[facility] ([facility])[address], [place] [address]Dtcbpmskx (Bld) [#/Vol]0.49 10*3/uLNormal0.10-1.00UnMercy Health Defiance HospitalComment on above:Performed By: #### [id number] ####[facility] ([facility])[address] [address]Bbngdpxcf/100 WBC (Bld)6.7 %Normal5.0-12.0UnMercy Health Defiance HospitalComment on above:Performed By: #### [id number] ####[facility] ([facility])[address] [place] [address]Bknazifbkij (Bld) [#/Vol] 5.26 10*3/uLNormal1.60-7.60UnMercy Health Defiance HospitalComment on above: Performed By: #### [id number] ####[facility] ([facility])[address] [place] [address]Ncevmlqumpu/100 WBC (Bld)71.6 %Ozxzfu36.0-72.0UnMercy Health Defiance HospitalComment on above:Performed By: #### [id number] ####[facility] ([facility])[address] [place] [address]BOYR (PER 100 WBCS) BY AUTOMATED COUNT0.0 %Kngzqd3RgjyjaimnsMercy Health Defiance HospitalComment on above: Performed By: #### [id number] ####[facility] ([facility])[address] [place] [address]VKXBHQHXG (10*3/UL) IN BLOOD AUTOMATED EGEXQ124 10*3/uLNormal 150-400UnMercy Health Defiance HospitalComment on above:Performed By: #### [id number] ####[facility] ([facility])[address] [place], [place] [address]NIB (Bld) [#/Vol]2.86 10*6/uLLow3.80-5.00UnMercy Health Defiance HospitalComment on above:Performed By: #### [id number] ####[facility] ([facility])[address] [place] [address]WTE (Bld) [#/Vol]7.35 10*3/uLNormal4.00-10.60UnMercy Health Defiance HospitalComment on above:Performed By: #### [id number] ####[facility] ([facility])[address] [place], [place] [address]YIGY GLUCOSE METER UNSOLICITED RESULTSon 68-80-3857Pomctdh [Mass/Vol]168 mg/vGBlcd33-020OjoymdvketMercy Health Defiance HospitalComment on above:Order Comment: Waived Testing in the ED is performed under the ED CLIA certificate #[id number].Result Comment: [email or web address] Critical Value NotedPerformed By: #### [id number] #### [facility] ([facility]) [address] [place] [address]Heefixb [Mass/Vol]96 mg/hGGcklcp12-448YxlzpsxxxmMercy Health Defiance HospitalComment on above:Order Comment: Waived Testing in the ED is performed under the ED CLIA certificate #[id number].Result Comment: [email or web address] Performed By: #### [id number] ####[facility] ([facility])[address] [place], [place] [address]Onlxlmh [Mass/Vol]171 mg/kMKlry04-952WhnpyzhhtqMercy Health Defiance HospitalComment on above:Order Comment: Waived Testing in the ED is performed under the ED CLIA certificate #[id number].Result Comment: [email or web address] Performed By: #### [id number] ####[facility] ([facility])[address] [place], [place] [address]Nqttyfq [Mass/Vol]105 mg/pTQczlpo53-103EcmwpeghoeMercy Health Defiance HospitalComment on above:Order Comment: Waived Testing in the ED is performed under the ED CLIA certificate #[id number].Result Comment: [email or web address] Performed By: #### [id number] ####[facility] ([facility])[address] [place], [place] [address]TJNHA METABOLIC PANELon 00-14-6429Ettjg gap [Moles/Vol]13 mmol/LNormal7-20UnMercy Health Defiance HospitalComment on above:Performed By: #### [id number] #### [facility] ([facility]) [address] [place] [place], [place] [address]Ixqjdok [Mass/Vol]7.3 mg/dLLow8.6-10.3UnMercy Health Defiance HospitalComment on above:Performed By: #### [id number] #### [facility] ([facility]) [address] [place], [place] [address]Vttvsfat [Moles/Vol]105 mmol/JIrvcjl88-754VgrvqyfdnjMercy Health Defiance HospitalComment on above:Performed By: #### [id number] #### [facility] ([facility]) [address] [place] [place], [place] [address]NM0 [Moles/Vol]20 mmol/JLun57-67CyurarpgleMercy Health Defiance HospitalComment on above:Performed By: #### [id number] #### [facility] ([facility]) [address] [place], [place] [address]Gtxaojpkut [Mass/Vol]3.00 mg/dLHigh0.60-1.20UnMercy Health Defiance HospitalComment on above:Performed By: #### [id number] #### [facility] ([facility]) [address] [place], [place] [address]THQJLXGAEM FILTRATION RATE ML/MIN/1.73 SQ M.FIJRRUHCM88.7 mL/min/1.73m*2Low>60.0UnMercy Health Defiance HospitalComment on above:Result Comment: [facility]???s estimated glomerular filtration rate (eGFR) will [...] potential consequences that do not disproportionately affect anyone group of individuals.Performed By: #### [id number] #### [facility] ([facility]) [address] [place], [place] [address]Cghzdgt [Mass/Vol]239 mg/xNKblj09-482QwclzkzdgyMercy Health Defiance HospitalComment on above:Performed By: #### [id number] #### [facility] ([facility]) [address] [place] [address]Bpzatycrb [Moles/Vol]4.2 mmol/LNormal3.5-5.1UnMercy Health Defiance HospitalComment on above:Performed By: #### [id number] #### [facility] ([facility]) [address] [place] [address]Shcaaj [Moles/Vol]134 mmol/PKkm372-580NperbazzexMercy Health Defiance HospitalComment on above:Performed By: #### [id number] #### [facility] ([facility]) [address] [place] [address]Ombt nitrogen [Mass/Vol]29 mg/dLHigh7-25UnMercy Health Defiance HospitalComment on above:Performed By: #### [id number] #### [facility] ([facility]) [address] [place] [address]CGRY NITROGEN/CREATININE (MASS RATIO) IN SER/PLAS9.7Normal [facility] HospitalComment on above:Performed By: #### [id number] #### [facility] ([facility]) [address] [place] [address]NEpz 65-47-8351IUTAGLJM KINASE (U/L) IN SER/PLAS56.0 U/LNormal 30.0-223.0UnMercy Health Defiance HospitalComment on above:Performed By: #### [id number] #### [facility] ([facility]) [address] [place] [address]CEFVNGHoz 81-20-6649LIZWTKS Attestation signed by Elisabeth Fowler MD at [...] Faculty, Division of Nephrology, Department of Medicine, [facility]. Nephrology Consult Note Patient : Addie Jean Baptiste; 49 [...] edema, morbid obesity who was taken to [facility] ED as she was noted to have [...] were noted to be elevated 180-->166 pg/mL. [facility] Cardiology was consulted from [facility] and she is transferred here for further [...] leg: No edema. Neurolog (more content not included)...NormalUnMercy Health Defiance Hospital CREATININE, URINE, RANDOMon 31-05-4664Nhspwhysem (U) [Mass/Vol]200.0 mg/dLNormal 26-299UnMercy Health Defiance HospitalComment on above:Performed By: #### [id number] #### [facility] ([facility]) [address] [place], [place] [address]OUSSGHIVPsb 38-47-3610Oaqatqxui [Mass/Vol]2.2 mg/dLNormal1.9-2.7 [facility] HospitalComment on above:Performed By: #### [id number] #### [facility] ([facility]) [address] [place], [place] [address]TPSF GLUCOSE METER UNSOLICITED RESULTSon 19-50-7525Yyshsmx [Mass/Vol]314 mg/vDJmqv54-767WaogxvzutbMercy Health Defiance HospitalComment on above:Order Comment: Waived Testing in the ED is performed under the ED CLIA certificate #[id number].Result Comment: [email or web address] By: #### [id number] #### [facility] ([facility]) [address] [place], [place] [address]Uanemxy [Mass/Vol]413 mg/tCLzin03-270VqqlmqodwcRiverside Methodist HospitalComment on above:Order Comment: Waived Testing in the ED is performed under the ED CLIA certificate #[id number].Result Comment: [email or web address] Performed By: #### [id number] #### [facility] ([facility]) [address] [place], [place] [address]Ouzqozz [Mass/Vol]221 mg/rOUmfp46-208FcfylhqxtmMercy Health Defiance HospitalComment on above:Order Comment: Waived Testing in the ED is performed under the ED CLIA certificate #[id number].Result Comment: [email or web address] Performed By: #### [id number] ####[facility] ([facility])[address] [place], [place] [address]Ouhigan [Mass/Vol]225 mg/fLVbkt07-102DodjlpwhupRiverside Methodist HospitalComment on above:Order Comment: Waived Testing in the ED is performed under the ED CLIA certificate #[id number].Result Comment: [email or web address] Performed By: #### [id number] ####[facility] ([facility])[address] [place], [place] [address]Vnvplmw [Mass/Vol]249 mg/yRWjwk19-629OvwomcdocbRiverside Methodist HospitalComment on above:Order Comment: Waived Testing in the ED is performed under the ED CLIA certificate #[id number].Result Comment: [email or web address] Performed By: #### [id number] #### [facility] ([facility]) [address] [place], [place] [address]Laenfek [Mass/Vol]213 mg/jDXlfj08-805TxtmfnyfegRiverside Methodist HospitalComment on above:Order Comment: Waived Testing in the ED is performed under the ED CLIA certificate #[id number].Result Comment: [email or web address] Performed By: #### [id number] #### [facility] ([facility] [address] [place], [place] [address]FYZXDFV, URINE, RANDOMon 13-96-6336Bzpcyjb (U) [Mass/Vol]61.3 mg/dLNormalUniversMount St. Mary HospitalComment on above:Result Comment: There are no established reference values for random urine specimens.Performed By: #### [id number] ####[facility] ([facility])[address] [place] [address] SODIUM, URINE, RANDOMon 42-83-7368Nnlljm (U) [Moles/Vol]28 mmol/LNormal [facility] HospitalComment on above:Performed By: #### [id number] #### [facility] ([facility]) [address] [place], [place] [address]EEMPBLXBLK WITH MICROSCOPICon 18-96-1525DCNDQDQEH, TOTAL PRESENCE IN URINENegativeNormalNegativeUnMercy Health Defiance Hospital Comment on above:Performed By: #### [id number] #### [facility] ([facility]) [address] [place], [place] [address]NQPWP IN URINEPresentAbnormalNone SeenUnMercy Health Defiance HospitalComment on above:Performed By: #### [id number] #### [facility] ([facility]) [address] [place], [place] [address]Qogdekc (U)ClearNormalClearUnMercy Health Defiance Hospital Comment on above:Performed By: #### [id number] #### [facility] ([facility]) [address] [place], [place] [address]Tvoye (U)YellowNormalColorless, Yellow, Light-YellowUnMercy Health Defiance HospitalComment on above:Performed By: #### [id number] #### [facility] ([facility]) [address] [place], [place] [address]Xtjhkwo (U) [Mass/Vol]mg/dLAbnormalNormalUniversMount St. Mary HospitalComment on above:Performed By: #### [id number] #### [facility] ([facility]) [address] [place], [place] [address]HXPCFIEVME PRESENCE IN URINENegativeNormalNegCentervilleComment on above:Performed By: #### [id number] #### [facility] ([facility]) [address] [place], [place] [address]QPAEDSH CASTS GRADED/LPF IN URINE SEDIMENT BY MICROSCOPY3-5 Abnormal0-2UnMercy Health Defiance HospitalComment on above:Performed By: #### [id number] #### [facility] ([facility]) [address] [facility] [address] [place], [place] [address]Rhvdsec Ql (U)NegativeNormalNegativeUnMercy Health Defiance HospitalComment on above:Performed By: #### [id number] #### [facility] ([facility]) [address] [place], [place] [address]CXRPPCSAJ ESTERASE PRESENCE IN URINE BY TEST STRIPModerate AbnormalNegativeUnMercy Health Defiance HospitalComment on above:Performed By: #### [id number] #### [facility] ([facility]) [address] [place], [place] [address]TEKCAFO PRESENCE IN URINENegativeNormalNegativeUnMercy Health Defiance HospitalComment on above:Performed By: #### [id number] #### [facility] ([facility]) [address] [place], [place] [address]tO (U)5.0 [pH]Normal5.0-8.0UnMercy Health Defiance Hospital Comment on above:Performed By: #### [id number] #### [facility] ([facility]) [address] [place], [place] [address]Hdgvqng (U) [Mass/Vol]30 mg/dLAbnormalNegativeUnMercy Health Defiance HospitalComment on above:Performed By: #### [id number] #### [facility] ([facility]) [address] [place], [place] [address]RDU (#/HPF) IN URINE SEDIMENT0-2NormalNone Seen, 0-2UnMercy Health Defiance HospitalComment on above:Performed By: #### [id number] #### [facility] ([facility]) [address] [place], [place] [address]Thkassnv gravity (U) [Rel density]1.269Aebpvq5.010-1.030 [facility] HospitalComment on above:Performed By: #### [id number] #### [facility] ([facility]) [address] [id number] EPITHELIAL CELLS (#/LPF) IN URINE SEDIMENTOccasional NormalNone Seen, Occasional, FewUnMercy Health Defiance HospitalComment on above:Performed By: #### [id number] #### [facility] ([facility]) [address] [address]JRFUUXYRELOH (MG/DL) IN URINENormalNormalNormalUniversity [facility] HospitalComment on above:Performed By: #### [id number] #### [facility] ([facility]) [address] [place] [address]YWT (LEUKOCYTE) (#/HPF) IN URINE [id number] Seen, 0-2UnMercy Health Defiance HospitalComment on above:Performed By: #### [id number] #### [facility] ([facility]) [address] [place], [place] [address]L-[id number] NATRIURETIC PEPTIDEon [id number] peptide B (Bld) [Mass/Vol]19 pg/mLNormal0-100UnMercy Health Defiance HospitalComment on above:Performed By: #### [id number] ####[facility] ([facility])[address] [place] [address]VSQ WITH AUTO DIFFERENTIALon 43-62-3642Oztbadeec (Bld) [#/Vol]0.07 10*3/uLNormal0.00-0.20UnMercy Health Defiance HospitalComment on above:Performed By: #### [id number] ####[facility] ([facility])[address] [place] [address]Cwklizstd/100 WBC (Bld)0.9 %Normal0.0-1.0UnMercy Health Defiance HospitalComment on above:Performed By: #### [id number] ####[facility] ([facility])[address] [place] [address]Ltwcxqxbvhu (Bld) [#/Vol]0.12 10*3/uL Normal0.00-0.50UnMercy Health Defiance HospitalComment on above:Performed By: #### [id number] ####[facility] (BEAKER)[address] [place] [address] Eosinophils/100 WBC (Bld)1.5 %Normal0.0-6.0UnMercy Health Defiance Hospital Comment on above:Performed By: #### [id number] ####[facility] ([facility])[address] [place], [place] [address]Wkfaenzsbqv distribution width (RBC) [Ratio]14.1 % Dmmwjw34.5-15.0UnMercy Health Defiance HospitalComment on above:Performed By: #### [id number] ####[facility] ([facility])[address] [place] [address] ERYTHROCYTE MEAN CORPUSCULAR HEMOGLOBIN CONCENTRATION (G/DL) BY UZBURSCBW71.6 g/rPZqcpsa33.0-35.0UnMercy Health Defiance HospitalComment on above:Performed By: #### [id number] ####[facility] ([facility])[address] [place], [place] [address]Xxgxbvwhvu (Bld) [Volume fraction]34.8 %Low36.0-45.0UnMercy Health Defiance HospitalComment on above:Performed By: #### [id number] ####[facility] (BEAKER)[address] [place], [place] [address]Pjemegvycx (Bld) [Mass/Vol]11.7 g/dL Low12.0-15.0UnMercy Health Defiance HospitalComment on above:Performed By: #### [id number] ####[facility] (BEAKER)[address] [place] [address] Immature granulocytes (Bld) [#/Vol]0.04 10*3/uLNormal0.00-0.20UnMercy Health Defiance HospitalComment on above:Performed By: #### [id number] ####[facility] (BEAKER)[address] [place], [place] [address]Aoenmhyz granulocytes/100 WBC (Bld)0.5 %Normal0.0-1.0UnMercy Health Defiance HospitalComment on above: Performed By: #### [id number] ####[facility] (BEAKER)[address] [place] [address]Ditvrxiylxx (Bld) [#/Vol]1.88 10*3/uLNormal1.20-4.00 [facility] HospitalComment on above:Performed By: #### [id number] ####[facility] (BEAKER)[address] [place] [address]Prrmgldegme/100 WBC (Bld)23.2 %Lhoucv65.0-45.0UnMercy Health Defiance HospitalComment on above:Performed By: #### [id number] ####[facility] (BEAKER)[address] [place], [place] [address]DHX (RBC) [Entitic mass]30.5 qhOedlia27.0-33.0UnMercy Health Defiance HospitalComment on above:Performed By: #### [id number] ####[facility] (BEAKER)[address] [place], [place] [address]VVB (RBC) [Entitic vol] 90.9 wRFgtnse86.0-98.0UnMercy Health Defiance HospitalComment on above: Performed By: #### [id number] ####[facility] (BE[facility]ER)[address] [place], [place] [address]Qjtxputym (Bld) [#/Vol]0.57 10*3/uLNormal0.10-1.00UnMercy Health Defiance HospitalComment on above:Performed By: #### [id number] ####[facility] (BEAKER)[address] [place], [place] [address]Vqvjydlfr/100 WBC (Bld) 7.0 %Normal5.0-12.0UnMercy Health Defiance HospitalComment on above:Performed By: #### [id number] ####[facility] (BEAKER)[address] [place], [place] [address]Ypnvcaynrsu (Bld) [#/Vol]5.41 10*3/uLNormal1.60-7.60UnMercy Health Defiance HospitalComment on above:Performed By: #### [id number] ####[facility] [place] [address]Hzwzdpfiufu/100 WBC (Bld)66.9 %Normal 40.0-72.0UnMercy Health Defiance HospitalComment on above:Performed By: #### [id number] ####[facility] ([facility])[address] [place] [address]PNNC (PER 100 WBCS) BY AUTOMATED COUNT0.0 %Xvdmls7ZtmiaiidjvMercy Health Defiance Hospital Comment on above:Performed By: #### [id number] ####[facility] ([facility])[address] [place] [address]IAQHGBNRV (10*3/UL) IN BLOOD AUTOMATED OGSUS127 10*3/wQOeneti573-632DrpegcytisMercy Health Defiance HospitalComment on above: Performed By: #### [id number] ####[facility] ([facility])[address] [place], [place] [address]RRV (Bld) [#/Vol]3.83 10*6/uLNormal3.80-5.00UnMercy Health Defiance HospitalComment on above:Performed By: #### [id number] ####[facility] ([facility])[address] [place], [place] [address]KSR (Bld) [#/Vol]8.09 10*3/uLNormal4.00-10.60UnMercy Health Defiance HospitalComment on above: Performed By: #### [id number] ####[facility] [place], [place] [address]YPGPDUZZTYJFU METABOLIC PANELon 01-31-4095Wdkalku [Mass/Vol] 3.4 g/dLLow3.5-5.7UnMercy Health Defiance HospitalComment on above:Performed By: #### [id number] ####[facility] ([facility])[address] [place] [address] ALP [Catalytic activity/Vol]104 U/UFmvdwx13-362DvngqpgvavMercy Health Defiance HospitalComment on above:Performed By: #### [id number] ####[facility] ([facility])[address] [place], [place] [address]RTE [Catalytic activity/Vol]11 U/L Normal7-52UnMercy Health Defiance HospitalComment on above:Performed By: #### [id number] ####[facility] ([facility])[address] [place], [place] [address]Gmxrz gap [Moles/Vol]14 mmol/LNormal7-20UnMercy Health Defiance HospitalComment on above:Performed By: #### [id number] ####[facility] ([facility])[address] [place], [place] [address]KRX [Catalytic activity/Vol]9 U/DDgc55-22RpbhkcysquMercy Health Defiance HospitalComment on above:Performed By: #### [id number] ####[facility] ([facility])[address] [place], [place] [address]Mbfgucdix [Mass/Vol]0.4 mg/dLNormal 0.3-1.0UnMercy Health Defiance HospitalComment on above:Performed By: #### [id number] ####[facility] ([facility])[address] [place], [place] [address]Npqucsx [Mass/Vol]7.6 mg/dLLow8.6-10.3UnMercy Health Defiance HospitalComment on above:Performed By: #### [id number] ####[facility] ([facility])[address] [place], [place] [address]Bmqakdzo [Moles/Vol]99 mmol/LDdjdlp33-795SdwfdvnpheMercy Health Defiance HospitalComment on above:Performed By: #### [id number] ####[facility] ([facility])[address] [place], [place] [address]IK2 [Moles/Vol]22 mmol/IFhhhqa38-04 [facility] HospitalComment on above:Performed By: #### [id number] ####[facility] ([facility])[address] [place] [address]Kuovuzzxrx [Mass/Vol]1.99 mg/dLHigh0.60-1.20UnMercy Health Defiance HospitalComment on above:Performed By: #### [id number] ####[facility] ([facility])[address] [place] [address]DOZATYWJTJ FILTRATION RATE ML/MIN/1.73 SQ M.QWMUBEDDC21.6 mL/min/1.73m*2Low>60.0UnMercy Health Defiance HospitalComment on above:Result Comment: [facility]???s estimated glomerular filtration rate (eGFR) will [...] potential consequences that do not disproportionately affect anyone group of individuals.Performed By: #### [id number] ####[facility] ([facility])[address] [place] [address]Kgcistl [Mass/Vol]531 mg/dLCritically jcjg63-529 [facility] HospitalComment on above:Performed By: #### [id number] ####[facility] ([facility])[address] [place] [address]Tmyfbvkmf [Moles/Vol]4.1 mmol/LNormal3.5-5.1UnMercy Health Defiance HospitalComment on above:Performed By: #### [id number] ####[facility] ([facility])[address] [place] [address]Iogvcdy [Mass/Vol]6.1 g/dLNormal6.0-8.3UnMercy Health Defiance HospitalComment on above:Performed By: #### [id number] ####[facility] ([facility])[address] [place] [address]Bxyefv [Moles/Vol]131 mmol/SZkc318-259 [facility] HospitalComment on above:Performed By: #### [id number] ####[facility] ([place])[address] [place], [place] [address]Vxup nitrogen [Mass/Vol]26 mg/dLHigh7-25R[facility] HospitalComment on above: Performed By: #### [id number] ####[facility] ([place])[address] [place], [place] [address]GCAH NITROGEN/CREATININE (MASS RATIO) IN SER/PLAS13.1NormalUnMercy Health Defiance HospitalComment on above:Performed By: #### [id number] ####[facility] ([place])[address] [place], [place] [address]MNIXAVHxn 10-01-2024 [facility]Un[facility]/End[facility] Stablehand Complaint Left foot wound History and Present [...] History: Diagnosis Date Anxiety Bipolar 1 disorder ([facility]) Cardiac arrest ([facility]) 2019 Chronic back pain Chronic kidney disease Coronary artery disease Depression Diabetes mellitus ([facility]) Hypertension Insomnia Pacemaker Schizoaffective disorder ([facility]) Seizures ([facility]) Stroke ([facility]) Past Surgical History Past Surgical History: Procedure [...] 40 mg by mouth in the morning. diphenhydrAMINE-acetaminophen (Tylenol PM) 25-500 mg per tablet [...] (ProtoNix) 40 mg EC (more content not included)...[facility] with edits by Juan C Crabtree MD at 10/01/2024 11:36 PM I personally saw and examined the patient on the same date of service as resident/fellow Dr Ho. I discussed the findings and therapeutic plan with the resident/fellow Dr ho. I agree with the documentation, except for any edits/updates below. Teaching Physician's Revisions: None Juan C Crabtree MD, [facility] Cardiology Consult Note Reason for Consult: Elevated troponin HPI: Addie Jean Baptiste is a 49 y.o. female with past history remarkable for primary hypertension, mixed hyperlipidemia, type 2 diabetes mellitus, sick sinus syndrome s/p PPM placement around 2011, she had a generator replacement few years later for a MRI compatible generator, she reported that the device was upgraded to ICD later in [facility] but we could not find record of that. She also has seizure disorder. She presented to [facility] as transfer from [facility] where she initially presented after a seizure episode associated with vomiting.patient reports 2 seizures episodes prior to this the last couple days. Patient reports that she has been having frequent seizure episodes and she was going to [place] for further evaluation. Her initial labs were [...] palpitations or legs edema. Upon presentation to [facility], she was afebrile and [...] medical history of Anxiety, Bipolar 1 disorder ([facility]), Cardiac arrest ([facility]) (2019), Chronic back pain, Chronic kidney disease, Coronary artery disease, Depression, Diabetes mellitus ([facility]), Hypertension, Insomnia, Pacemaker, Schizoaffective disorder ([facility]), Seizures ([facility]), and Stroke ([facility]). Surgical History She has a past surgical [...] Daily citalopram (CELEXA) 40 mg, oral, Daily diphenhydrAMINE-acetaminophen (Tylenol PM) 25-500 mg per tablet 1 [...] 3 times daily urea (more content not included)...NormalUnMercy Health Defiance Hospital HEMOGLOBIN A1Con 67-98-5024Amlgqfo [Mass/Vol]260 mg/dLNormalUniversity [facility] HospitalComment on above:Performed By: #### [id number] #### [facility] (AKER) [address] [place], [place] [address]GhD5f (Bld) [Mass fraction]10.7 %High4.0-6.0UnMercy Health Defiance HospitalComment on above:Performed By: #### [id number] #### [facility] (BEAKER) [address] [place], [place] [address]YOUJ SENSITIVITY TROPONIN Ion 31-76-1440DY TROPONIN I (NG/L)72 ng/LCritically high<15UnMercy Health Defiance HospitalComment on above: Performed By: #### [id number] #### [facility] (BEAKER) [address] [place], [place] [address]QZAMUH ACID WITH 4 HOUR REFLEXon 23-19-8693WCTMNKM (MMOL/L) IN SER/PLAS3.1 mmol/LCritically high0.5-2.2UnMercy Health Defiance Hospital Comment on above:Result Comment: Previous result verified on 10/01/2024 1150 on specimen/case [id number] called with component Lactate blood venous for procedure Lactic acid, venous, whole blood with reflex with value 3.4 mmol/L. Performed By: #### [id number] #### [facility] (BEAKER) [address] [place], [place] [address]OXUYAAY (MMOL/L) IN SER/PLAS3.4 mmol/LCritically high0.5-2.2 [facility] HospitalComment on above:Performed By: #### [id number] ####[facility] ([facility])[address] [place] [address]HUXQT PANELon 03-10-6084GUTK/HDL4.5 mg/dLNormalUniAvita Health SystemComment on above:Performed By: #### [id number] ####[facility] ([facility])[address] [place] [address]Qfbkwqrkmwa [Mass/Vol]219 mg/qXHzqe162-483LavvtnfhjeMercy Health Defiance HospitalComment on above:Performed By: #### [id number] ####[facility] ([facility])[address] [place] [address]Agjqbdndz [Mass/Vol]207 mg/dLHigh <150UnMercy Health Defiance HospitalComment on above:Result Comment: TRIGLYCERIDE REFERENCE RANGE: 20 YEARS AND OLDER CARDIOVASCULAR RISK LESS THAN 150 mg/dL LOW RISK 150 TO 199 mg/dL BORDERLINE RISK 200 mg/dL AND GREATER HIGH RISKPerformed By: #### [id number] ####[facility] ([facility])[address] [place] [address]Czkmgqkoa [Mass/Vol]129 mg/dLNormal 0-160UnMercy Health Defiance HospitalComment on above:Performed By: #### [id number] ####[facility] ([facility])[address] [place] [address]Xelwkkjjb [Mass/Vol]49 mg/pNCqrzpk12-79AmaambkxrrMercy Health Defiance HospitalComment on above:Performed By: #### [id number] ####[facility] ([facility])[address] [facility] [place], [place] [address]CZG HDL CHOL. (LDL+VLDL)170NormalUniAvita Health SystemComment on above:Performed By: #### [id number] ####[facility] ([facility] [place] [address]YZREE VLDL-C41 mg/dLHigh0-40UnMercy Health Defiance HospitalComment on above:Performed By: #### [id number] ####[facility] ([facility])[address] [place], [place] [address]UZQOVNPKVrc 10-01-2024 Magnesium [Mass/Vol]1.5 mg/dLLow1.9-2.7UnMercy Health Defiance Hospital Comment on above:Performed By: #### [id number] ####[facility] ([facility])[address] [place], [place] [address]RSTY GLUCOSE METER UNSOLICITED RESULTSon 10-01-2024 Glucose [Mass/Vol]134 mg/bAAyup10-269IjxoweyltzMercy Health Defiance HospitalComment on above:Order Comment: Waived Testing in the ED is performed under the ED CLIA certificate #[id number].Result Comment: [id number] By: #### [id number] ####[facility] ([facility])[address] [place], [place] [address]Vfyhtab [Mass/Vol]294 mg/oDIwpe91-921JuarogajirMercy Health Defiance HospitalComment on above:Order Comment: Waived Testing in the ED is performed under the ED CLIA certificate #[id number].Result Comment: [id number] By: #### [id number] #### [facility] ([facility]) [address] [place], [place] [address]Wmdddgw [Mass/Vol]406 mg/tWVoed16-874GvzuejvacqMercy Health Defiance HospitalComment on above:Order Comment: Waived Testing in the ED is performed under the ED CLIA certificate #[id number].Result Comment: [id number] Performed By: #### [id number] #### [facility] ([facility]) [address] [place], [place] [address]ZJV1 REFLEX TO FT4on 11-80-9301YHVLBEAGQGG (MIU/L) IN SER/PLAS BY DETECTION LIMIT <= 0.05 MIU/L3.71 mIU/LNormal0.34-5.60UnMercy Health Defiance HospitalComment on above:Performed By: #### [id number] #### [facility] ([facility]) [address] [place], [place] [address]UP LUMBAR SPINE 2-3 VIEWS (STANDARD)on 32-44-4108NF LUMBAR SPINE 2-3 VIEWS (STANDARD)NormalSelect Specialty Hospital - Beech GroveComment on above:Order Comment: Standing AND AP LateralInjury/Trauma or Illness?:Illness/OtherHow long have you had these symptoms (acute/chronic)?:UnknownReason for exam?:Lumbar painHistory of cancer?:uSurgeries, chemotherapy, or radiation?:pacemakerType of Exam?:UnknownAdditional signs and symptoms?:noneBASIC METABOLIC PANELon 20-73-3323Vtloa gap [Moles/Vol]20 mmol/EOamakr29-09WiighrSelect Specialty Hospital - Beech Grove Comment on above:Order Comment: [facility] has implemented the eGFR calculation approach that does not have a coefficient for race that conforms to the NKF-ASN Task Force Recommendations.Performed By: #### [id number] ####[facility] [address] [place], [place] [address] Abbi Choudhary M.D. 36D0 [id number] [Mass/Vol]8.9 mg/dLNormal8.4-10.2MRiley Hospital for Children on above:Order Comment: [facility] has implemented the eGFR calculation approach that does not have a coefficient for race that conforms to the NKF-ASN Task Force Recommendations.Performed By: #### [id number] ####[facility] [address] [place], [place] [address] Abbi Choudhary M.D. [id number] [Moles/Vol]97 mmol/YLmm47-222HxmyuySelect Specialty Hospital - Beech GroveComascension standish hospital on above:Order Comment: [facility] has implemented the eGFR calculation approach that does not have a coefficient for race that conforms to the NKF-ASN Task Force Recommendations.Performed By: #### [id number] ####[facility] [address] [place], [place] [address] Abbi Choudhary M.D. [id number] [Mass/Vol]1.71 mg/dLHigh0.40-1.10[facility] on above:Order Comment: [facility] has implemented the eGFR calculation approach that does not have a coefficient for race that conforms to the NKF-ASN Task Force Recommendations.Performed By: #### [id number] ####[facility] [address] [place], [place] [address] Abbi Choudhary M.D. [id number] mL/min/1.73 m2Low>=60 [facility] on above:Order Comment: [facility] has implemented the eGFR calculation approach that does not have a coefficient for race that conforms to the NKF-ASN Task Force Recommendations. Result Comment: Estimated GFR was calculated using the 2020 CKD-EPI creatinine equation.Performed By: #### [id number] ####[facility] [address] [place], [place] [address] Abbi Choudhary M.D. [id number] [Mass/Vol]468 mg/dLOff scale high 65-99MRiley Hospital for Children on above:Order Comment: [facility] has implemented the eGFR calculation approach that does not have a coefficient for race that conforms to the NKF-ASN Task Force Recommendations.Performed By: #### [id number] ####[facility] [address] [place] [address] Abbi Choudhary M.D. [id number] (Bld) [Moles/Vol]17 mmol/LLow 21-32[facility] on above:Order Comment: [facility] has implemented the eGFR calculation approach that does not have a coefficient for race that conforms to the NKF-ASN Task Force Recommendations.Performed By: #### [id number] ####[facility] [address] [place], [place] [address] Abbi Choudhary M.D. [id number] [Moles/Vol]4.0 mmol/L Normal3.5-5.1MRiley Hospital for Children on above:Order Comment: [facility] has implemented the eGFR calculation approach that does not have a coefficient for race that conforms to the NKF-ASN Task Force Recommendations.Performed By: #### [id number] ####[facility] [address] [place], [place] [address] Abbi Choudhary M.D. [id number] [Moles/Vol]130 mmol/LLow 135-145[facility] on above:Order Comment: [facility] has implemented the eGFR calculation approach that does not have a coefficient for race that conforms to the NKF-ASN Task Force Recommendations.Performed By: #### [id number] ####[facility] [address] [address] Abbi Choudhary M.D. [id number] nitrogen [Mass/Vol]30 mg/dLHigh 8-25Select Special[facility] Hospital - Beech GroveComment on above:Order Comment: [facility] has implemented the eGFR calculation approach that does not have a coefficient for race that conforms to the NKF-ASN Task Force Recommendations. Performed By: #### [id number] ####[facility] [address] [place] [address] Abbi Choudhary M.D. [id number] nitrogen/Creatinine [Mass ratio]17.5 mg/mgNormal 10.0-20.0[facility] Health Crown Pointment on above:Order Comment: [facility] has implemented the eGFR calculation approach that does not have a coefficient for race that conforms to the NKF-ASN Task Force Recommendations.Performed By: #### [id number] ####[facility] [address] [place] [address] Abbi Choudhary M.D. [id number] WITH AUTO DIFFERENTIALon 09-13-2592AOJD NRBC0.0 %NormalSelect Specialty Hospital - Beech GroveComment on above:Performed By: #### [id number] ####[facility] [address] [place] [address] Abbi Choudhary M.D. [id number] NRBC ABS COUNT0.00 K/mcLNormal0.00-0.00Select [facility] Hospital - Beech GroveComment on above:Performed By: #### [id number] ####[facility] [address] [place] [address] Abbi Choudhary M.D. [id number] ABSOLUTE COUNT 0.05 K/mcLNormal0.00-0.30Select Specialty Hospital - Beech GroveComment on above:Performed By: #### [id number] ####[facility] [address] [place] [address] Abbi Choudhary M.D. [id number]/100 WBC (Bld)0.6 %NormalUnion Hospital HospitalComment on above:Performed By: #### [id number] ####[facility] [address] [place] [address] Abbi Choudhary M.D. [id number] (Bld) [#/Vol]0.08 10*3/uLNormal 0.00-0.50[facility] HospitalComment on above:Performed By: #### [id number] ####[facility] [address] [place] [address] Abbi Choudhary M.D. [id number]/100 WBC (Bld)0.9 %NormalUnion Hospital HospitalComment on above:Performed By: #### [id number] #### LAB [address] [place] [address] Abbi Choudhary M.D. [id number] distribution width (RBC) [Ratio] 13.3 %Ivhbxo45.6-14.8[facility] HospitalComment on above:Performed By: #### [id number] ####[facility] [address] [address] Abbi Choudhary M.D. [id number] (Bld) [Volume fraction]35.3 %Low36.0-46.0[facility] HospitalComment on above:Performed By: #### [id number] ####[facility] [address] [place] [address] Abbi Choudhary M.D. [id number] (Bld) [Mass/Vol]12.1 g/xFHlbkpw25.0-16.0[facility] HospitalComment on above: Performed By: #### [id number] ####[facility] [address] [place] [address] Abbi Choudhary M.D. [id number] ABSOLUTE0.04 K/mcLNormal0.00-0.30[facility] HospitalComment on above:Performed By: #### [id number] ####[facility] [address] [address] Abbi Choudhary M.D. [id number] PERCENT0.40 % [facility] County [facility] HospitalComment on above:Result Comment: The IG parameter is the percentage of metamyelocytes, myelocytes and promyelocytes.An immature granulocyte count (IG) of 1% or more suggests the possibility of infection, an IG countof 3% is very likely related to an infection.Performed By: #### [id number] ####[facility] [address] [address] Abbi Choudhary M.D. 36 [id number] (Bld) [#/Vol]1.49 10*3/uLNormal0.90-4.00[facility] Bee[facility] GroveComment on above:Performed By: #### [id number] ####[facility] [address] [address] Abbi Choudhary M.D. [id number]/100 WBC (Bld) 16.7 %NormalSelect Specialty Hospital - Beech GroveComment on above:Performed By: #### [id number] ####[facility] [address] [address]Alisia Choudhary M.D. 36 [id number] (RBC) [Entitic mass]30.5 xaEeozpy04.0-34.0[facility] Comment on above:Performed By: #### [id number] ####[facility] [address] [address]Alisia Choudhary M.D. [id number] (RBC) [Entitic vol]88.9 fLNormal 80.0-100.0[facility] Bee[facility] GroveComment on above:Performed By: #### [id number] ####[facility] [address] [address] Abbi Choudhary M.D. 36 [id number] CORPUSCULAR HEMOGLOBIN CONC34.3 g/hBJmvasl00.0-37.0[facility] GroveComment on above:Performed By: #### [id number] ####[facility] [address] [address] Abbi Choudhary M.D. [id number] (Bld) [#/Vol] 0.41 10*3/uLNormal0.30-0.90[facility] GroveComment on above:Performed By: #### [id number] ####[facility] [address] [address] Abbi Choudhary M.D. [id number]/100 WBC (Bld)4.6 %NormalSelect Specialty Hospital - Beech GroveComment on above:Performed By: #### [id number] ####[facility] [address] [address] Abbi Choudhary M.D. [id number] ABSOLUTE COUNT6.83 K/mcLNormal 1.70-7.00[facility] GroveComment on above:Performed By: #### [id number] ####[facility] [address] [address] Abbi Choudhayr M.D. 36 [id number]/100 WBC (Bld)76.8 %[facility] HospitalComment on above:Performed By: #### [id number] ####[facility] [address] [address] Abbi Choudhary M.D. [id number] mean volume (Bld) [Entitic vol]9.7 fLNormal9.4-12.4[facility] Bee[facility] GroveComment on above:Performed By: #### [id number] ####[facility] [address] [address] Abbi Choudhary M.D. [id number] (Bld) [#/Vol]283 10*3/dNRqloeg833-002VuskecSelect Specialty Hospital - Bee[place] Grove Comment on above:Performed By: #### [id number] ####[facility] [address] [address] Abbi Choudhary M.D. [id number] (Bld) [#/Vol]3.97 10*6/uLLow 4.00-5.20[facility] GroveComment on above:Performed By: #### [id number] ####[facility] [address] [address] Abbi Choudhary M.D. 36 [id number] (Bld) [#/Vol]8.90 10*3/uLNormal4.50-11.00[facility] Comment on above:Performed By: #### [id number] ####[facility] [address] [address] Abbi Choudhary M.D. [id number] OF ABUSE SCREEN, URINEon 21-71-1037BWCBJXKCZBL SCREEN, URINENot detectedNormalNone DetectedSelect Specialty Hospital - Beech GroveComment on above:Order Comment: Screen results should be used for treatment purposes only.Result Comment: Urine Amphetamine Cutoff: < 1000 ng/mL = None DetectedPerformed By: #### [id number] ####[facility] [address] [address] Abbi Choudhary M.D. [id number] SCREEN URINENot detected NormalNone DetectedSelect Specialty Hospital - Beech GroveComment on above:Order Comment: Screen results should be used for treatment purposes only.Result Comment: Urine Barbiturates Cutoff: < 200 ng/mL = None DetectedPerformed By: #### [id number] ####[facility] [address] [address] Abbi Choudhary M.D. [id number] BENZODIAZEPINE SCREEN, URINENot detectedNormalNone DetectedSelect Specialty Hospital - Beech GroveComment on above:Order Comment: Screen results should be used for treatment purposes only.Result Comment: Urine Benzodiazepine Cutoff: < 200 ng/mL = None DetectedPerformed By: #### [id number] ####[facility] [address] [address] Abbi Choudhary M.D. [id number], URINENot detected NormalNone DetectedSelect Specialty Hospital - Beech GroveComascension standish hospital on above:Order Comment: Screen results should be used for treatment purposes only.Result Comment: Urine Buprenorphine Cutoff: < 5 ng/mL = None DetectedPerformed By: #### [id number] ####[facility] [address] [address] Abbi Choudhary M.D. [id number] CANNABINOID SCREEN URINENot detectedNormalNone DetectedSelect Specialty Hospital - [place] Comment on above:Order Comment: Screen results should be used for treatment purposes only.Result Comment: Urine Cannabinoids Cutoff: < 50 ng/mL = None DetectedPerformed By: #### [id number] ####[facility] [address] [address] Abbi Choudhary M.D. [id number], SCREEN URINENot detectedNormalNone DetectedSelect Specialty Hospital - Beech GroveComment on above:Order Comment: Screen results should be used for treatment purposes only.Result Comment: Urine Cocaine Cutoff: < 300 ng/mL = None DetectedPerformed By: #### [id number] ####[facility] [address] [address] Abbi Choudhary M.D. [id number], URINENot detectedNormalNone DetectedSelect Specialty Hospital - Beech GroveComment on above:Order Comment: Screen results should be used for treatment purposes only.Result Comment: Urine Fentanyl Cutoff: < 1 ng/mL = None DetectedPerformed By: #### [id number] ####[facility] [address] [address] Abbi Choudhary M.D. [id number] SCREEN, URINENot detectedNormalNone DetectedSelect Specialty Hospital - Beech GroveComment on above:Order Comment: Screen results should be used for treatment purposes only.Result Comment: Urine Methadone Cutoff: < 300 ng/mL = None DetectedPerformed By: #### [id number] ####[facility] [address] [address] Abbi Choudhary M.D. [id number] SCREEN URINENot detected NormalNone DetectedSelect Specialty Hospital - Beech GroveComment on above:Order Comment: Screen results should be used for treatment purposes only.Result Comment: Urine Opiates Cutoff: < 300 ng/mL = None DetectedPerformed By: #### [id number] ####[facility] [address] [address] Abbi Choudhary M.D. [id number] SCREEN, URINENot detectedNormalNone DetectedSelect Specialty Hospital - Beech GroveComment on above:Order Comment: Screen results should be used for treatment purposes only. Result Comment: Urine Oxycodone Cutoff: < 100 ng/mL = None DetectedPerformed By: #### [id number] ####[facility] [address] [address] Abbi Choudhary M.D. [id number] Prov Noteon 80-83-7748DR Prov NoteNoDeKalb Memorial HospitalHEPATIC FUNCTION PANELon 29-64-3827Jiaikme [Mass/Vol]3.5 g/dLNormal 3.2-5.2MColumbus Regional HealthComment on above:Performed By: #### [id number] ####[facility] [address] [address] Abbi Choudhary M.D. [id number] [Catalytic activity/Vol]107 U/QWecnqu80-973EalmsrSelect Specialty Hospital - Beech GroveComment on above:Performed By: #### [id number] ####[facility] [address] [address] Abbi Choudhary M.D. [id number] [Catalytic activity/Vol]11 U/LNormal0-35 U/L [facility] Bee[facility] GroveComment on above:Performed By: #### [id number] #### LAB [address] [address] Abbi Choudhary M.D. [id number] [Catalytic activity/Vol]12 U/LNormal0-35 U/LMColumbus Regional HealthComment on above:Performed By: #### [id number] ####[facility] [address] [address] Abbi Choudhary M.D. [id number] [Mass/Vol]0.3 mg/dLNormal0.0-1.3MColumbus Regional HealthComment on above:Performed By: #### [id number] ####[facility] [address] [address] Abbi Choudhary M.D. [id number] Bilirubin.indirect [Mass/Vol]0.2 mg/dLNormal0.0-0.4[facility] Comment on above:Performed By: #### [id number] ####[facility] [address] [place], [place] [address] Abbi Choudhary M.D. [id number] [Mass/Vol]6.5 g/dLNormal 6.0-8.0[facility] Bee[facility] GroveComment on above:Performed By: #### [id number] ####[facility] [address] [place], [place] [address] Abbi Choudhary M.D. [id number] LEVETIRACETAM LEVELon 57-92-9409PRGUCUSJQCETA<Low6.0-46.0[facility] Comment on above:Performed By: #### [id number] ####[facility] [place], [place] [address] Swapnil Brewer M.D. [id number] 62-89-6775ZYMFSYVN ESTIMATENormalNormalNormalSelect Specialty Hospital - Beech GroveComment on above:Performed By: #### [id number] ####[facility] [address] [address] Abbi Choudhary M.D. [id number] MORPH SCAN NormalNormSt. Vincent Mercy HospitalComment on above:Result Comment: RBC Indices confirmed with manual peripheral smear review.Performed By: #### [id number] ####[facility] [address] [address] Abbi Choudhary M.D. [id number] URINALYSISon 53-38-0743NNNGIQLH, URINEFewAbnormalNone SeenSelect Specialty Hospital - Beech GroveComment on above:Order Comment: Microscopic examination is performed on all urinalysis samples and only positive findings are reported. The test for blood on the chemical analytic portion of urinalysis may also be positive due to hemoglobinuria and myoglobinuria and if red blood cells are present they are quantified by microscopic examination.Performed By: #### [id number] ####[facility] [address] [address] Abbi Choudhary M.D. [id number], URINE NegativeNormalNegativeSelect Specialty Hospital - Beech GroveComment on above:Order Comment: Microscopic examination is performed on all urinalysis samples and only positive findings are reported. The test for blood on the chemical analytic portion of urinalysis may also be positive due to hemoglobinuria and myoglobinuria and if red blood cells are present they are quantified by microscopic examination. Performed By: #### [id number] ####[facility] [address] [address] Abbi Choudhary M.D. [id number], URINESmallAbnormalNegMadison State HospitalComment on above:Order Comment: Microscopic examination is performed on all urinalysis samples and only positive findings are reported. The test for blood on the chemical analytic portion of urinalysis may also be positive due to hemoglobinuria and myoglobinuria and if red blood cells are present they are quantified by microscopic examination.Performed By: #### [id number] ####[facility] [address] [address] Abbi Choudhary M.D. [id number] (U)Hazy AbnormalCleSelect Specialty Hospital - IndianapolisComment on above:Order Comment: Microscopic examination is performed on all urinalysis samples and only positive findings are reported. The test for blood on the chemical analytic portion of urinalysis may also be positive due to hemoglobinuria and myoglobinuria and if red blood cells are present they are quantified by microscopic examination.Performed By: #### [id number] ####[facility] [address] [address] Abbi Choudhary M.D. [id number] (U)YellowNormalColorless, [facility] Comment on above:Order Comment: Microscopic examination is performed on all urinalysis samples and only positive findings are reported. The test for blood on the chemical analytic portion of urinalysis may also be positive due to hemoglobinuria and myoglobinuria and if red blood cells are present they are quantified by microscopic examination.Performed By: #### [id number] ####[facility] [address] [place], [place] [address] Abbi Choudhary M.D. [id number] Ql (U) >=500AbnormalNegMadison State HospitalComment on above:Order Comment: Microscopic examination is performed on all urinalysis samples and only positive findings are reported. The test for blood on the chemical analytic portion of urinalysis may also be positive due to hemoglobinuria and myoglobinuria and if red blood cells are present they are quantified by microscopic examination. Performed By: #### [id number] ####[facility] [address] [address] Abbi Choudhary M.D. [id number] casts LM Ql (Urine sed)1-8Hrbhgk2-2RzmjexRiley Hospital for Children on above:Order Comment: Microscopic examination is performed on all urinalysis samples and only positive findings are reported. The test for blood on the chemical analytic portion of urinalysis may also be pos itive due to hemoglobinuria and myoglobinuria and if red blood cells are present they are quantified by microscopic examination.Performed By: #### [id number] ####[facility] [address] [address] Abbi Choudhary M.D. [id number] Ketones Ql (U)NegativeNormalNegMadison State HospitalComascension standish hospital on above: Order Comment: Microscopic examination is performed on all urinalysis samples and only positive findings are reported. The test for blood on the chemical analytic portion of urinalysis may also be positive due to hemoglobinuria and myoglobinuria and if red blood cells are present they are quantified by microscopic examination.Performed By: #### [id number] ####[facility] [address] [address] Abbi Choudhary M.D. [id number] esterase Test strip Ql (U)NegativeNormalNegativeSelect Specialty Hospital - Beech GroveComascension standish hospital on above:Order Comment: Microscopic examination is performed on all urinalysis samples and only positive findings are reported. The test for blood on the chemical analytic portion of urinalysis may also be positive due to hemoglobinuria and myoglobinuria and if red blood cells are present they are quantified by microscopic examination.Performed By: #### [id number] ####[facility] [address] [address] Abbi Choudhary M.D. [id number], URINENegativeNormal NegativeMargaret Mary Community Hospital on above:Order Comment: Microscopic examination is performed on all urinalysis samples and only positive findings are reported. The test for blood on the chemical analytic portion of urinalysis may also be positive due to hemoglobinuria and myoglobinuria and if red blood cells are present they are quantified by microscopic examination.Performed By: #### [id number] ####[facility] [address] [address] Abbi Choudhary M.D. [id number] (U)5.0 [pH]Normal5.0-7.0[facility] on above:Order Comment: Microscopic examination is performed on all urinalysis samples and only positive findings are reported. The test for blood on the chemical analytic portion of urinalysis may also be positive due to hemoglobinuria and myoglobinuria and if red blood cells are present they are quantified by microscopic examination.Performed By: #### [id number] ####[facility] [address] [place] [address] Abbi Choudhary M.D. [id number] (U) [Mass/Vol]100 mg/dLAbnormalNegativeMargaret Mary Community Hospital on above:Order Comment: Microscopic examination is performed on all urinalysis samples and only positive findings are reported. The test for blood on the chemical analytic portion of urinalysis may also be positive due to hemoglobinuria and myoglobinuria and if red blood cells are present they are quantified by microscopic examination.Performed By: #### [id number] ####[facility] [address] [address] Abbi Choudhary M.D. [id number] LM.HPF (Urine sed) [#/Area]1 /[HPF]Normal0-3MRiley Hospital for Children on above:Order Comment: Microscopic examination is performed on all urinalysis samples and only positive findings are reported. The test for blood on the chemical analytic portion of urinalysis may also be positive due to hemoglobinuria and myoglobinuria and if red blood cells are present they are quantified by microscopic examination. Performed By: #### [id number] ####[facility] [address] [address] Abbi Choudhary M.D. [id number] gravity (U) [Rel density]1.017Normal 1.005-1.025[facility] on above:Order Comment: Microscopic examination is performed on all urinalysis samples and only positive findings are reported. The test for blood on the chemical analytic portion of urinalysis may also be positive due to hemoglobinuria and myoglobinuria and if red blood cells are present they are quantified by microscopic examination.Performed By: #### [id number] #### LAB [address] [address] Abbi Choudhary M.D. [id number] EPITHELIAL1 /hpfNormal0-4[facility] on above:Order Comment: Microscopic examination is performed on all urinalysis samples and only positive findings are reported. The test for blood on the chemical analytic portion of urinalysis may also be positive due to hemoglobinuria and myoglobinuria and if red blood cells are present they are quantified by microscopic examination.Performed By: #### [id number] ####[facility] [address] [place] [address] Abbi Choudhary M.D. [id number], URINE<2.0Normal<2.0[facility] on above:Order Comment: Microscopic examination is performed on all urinalysis samples and only positive findings are reported. The test for blood on the chemical analytic portion of urinalysis may also be positive due to hemoglobinuria and myoglobinuria and if red blood cells are present they are quantified by microscopic examination. Performed By: #### [id number] ####[facility] [address] [place] [address] Abbi Choudhary M.D. [id number] LM.HPF (Urine sed) [#/Area]6 /[HPF]High0-5[facility] GroveComascension standish hospital on above:Order Comment: Microscopic examination is performed on all urinalysis samples and only positive findings are reported. The test for blood on the chemical analytic portion of urinalysis may also be pos itive due to hemoglobinuria and myoglobinuria and if red blood cells are present they are quantified by microscopic examination.Performed By: #### [id number] ####[facility] [address] [place] [address] Abbi Choudhary M.D. [id number] METABOLIC PANELon 61-99-9549Fyxpp gap [Moles/Vol]15 mmol/GUvpgmg96-24DcubpbMargaret Mary Community Hospital on above:Order Comment: [facility] has implemented the eGFR calculation approach that does not have a coefficient for race that conforms to the NKF-ASN Task Force Recommendations.Performed By: #### [id number] ####[facility] [address] [place], [place] [address] Abbi Choudhary M.D. [id number] [Mass/Vol]9.4 mg/dLNormal8.4-10.2MColumbus Regional Health Comment on above:Order Comment: [facility] has implemented the eGFR calculation approach that does not have a coefficient for race that conforms to the NKF-ASN Task Force Recommendations.Performed By: #### [id number] ####[facility] [address] [address] Abbi Choudhary M.D. 36D0 783425Dnegshzy [Moles/Vol]102 mmol/YMmrjkj93-163UckqzwMargaret Mary Community Hospital on above:Order Comment: [facility] has implemented the eGFR calculation approach that does not have a coefficient for race that conforms to the NKF-ASN Task Force Recommendations.Performed By: #### [id number] ####[facility] [address] [place], [place] [address] Abbi Choudhary M.D. [id number] [Mass/Vol]1.75 mg/dLHigh0.40-1.10[facility] on above:Order Comment: [facility] has implemented the eGFR calculation approach that does not have a coefficient for race that conforms to the NKF-ASN Task Force Recommendations.Performed By: #### [id number] ####[facility] [address] [place], [place] [address] Abbi Choudhary M.D. [id number] mL/min/1.73 m2Low >=60[facility] on above:Order Comment: [facility] has implemented the eGFR calculation approach that does not have a coefficient for race that conforms to the NKF-ASN Task Force Recommendations. Result Comment: Estimated GFR was calculated using the 2020 CKD-EPI creatinine equation.Performed By: #### [id number] ####[facility] [address] [address] Abbi Choudhary M.D. [id number] [Mass/Vol]237 mg/hZMbpv80-61TojwmuRiley Hospital for Children on above:Order Comment: [facility] has implemented the eGFR calculation approach that does not have a coefficient for race that conforms to the NKF-ASN Task Force Recommendations.Performed By: #### [id number] ####[facility] [address] [address] Abbi Choudhary M.D. [id number] (Bld) [Moles/Vol]23 mmol/GTbyuli87-64GrmmreSelect Specialty Hospital - Beech Grove Comment on above:Order Comment: [facility] has implemented the eGFR calculation approach that does not have a coefficient for race that conforms to the NKF-ASN Task Force Recommendations.Performed By: #### [id number] ####[facility] [address] [address] Abbi Choudhary M.D. 36D0 463732Obwwsvqyb [Moles/Vol]3.7 mmol/LNormal3.5-5.1MRiley Hospital for Children on above:Order Comment: [facility] has implemented the eGFR calculation approach that does not have a coefficient for race that conforms to the NKF-ASN Task Force Recommendations.Performed By: #### [id number] ####[facility] [address] [address] Abbi Choudhary M.D. [id number] [Moles/Vol]136 mmol/BHnmrzm418-119NmipxlMargaret Mary Community Hospital on above:Order Comment: [facility] has implemented the eGFR calculation approach that does not have a coefficient for race that conforms to the NKF-ASN Task Force Recommendations.Performed By: #### [id number] ####[facility] [address] [address] Abbi Choudhary M.D. [id number] nitrogen [Mass/Vol] 26 mg/dLWyoming General Hospital8-25[facility] on above:Order Comment: [facility] has implemented the eGFR calculation approach that does not have a coefficient for race that conforms to the NKF-ASN Task Force Recommendations.Performed By: #### [id number] ####[facility] [address] [address] Abbi Choudhary M.D. [id number] nitrogen/Creatinine [Mass ratio]14.9 mg/meMgdwct81.0-20.0[facility] Beech GroveComment on above:Order Comment: [facility] has implemented the eGFR calculation approach that does not have a coefficient for race that conforms to the NKF-ASN Task Force Recommendations.Performed By: #### [id number] ####[facility] [address] [address] Abbi Choudhary M.D. [id number] WITH AUTO DIFFERENTIALon 70-83-1180XESU NRBC0.0 %[facility] HospitalComment on above:Performed By: #### [id number] ####[facility] [address] [address] Abbi Choudhary M.D. [id number] NRBC ABS COUNT0.00 K/mcLNormal0.00-0.00 [facility] Bee[facility] GroveComment on above:Performed By: #### [id number] ####[facility] [address] [address] Abbi Choudhary M.D. [id number] ABSOLUTE COUNT0.05 K/mcLNormal0.00-0.30[facility] Bee[facility] GroveComment on above: Performed By: #### [id number] ####[facility] [address] [address] Abbi Choudhary M.D. [id number]/100 WBC (Bld)0.5 %[facility] HospitalComment on above:Performed By: #### [id number] ####[facility] [address] [address] Abbi Choudhary M.D. [id number] (Bld) [#/Vol] 0.19 10*3/uLNormal0.00-0.50[facility] Bee[facility] GroveComment on above:Performed By: #### [id number] ####[facility] [address] [address] Abbi Choudhary M.D. [id number]/100 WBC (Bld)2.1 %[facility] Comment on above:Performed By: #### [id number] ####[facility] [address] [address] Abbi Choudhary M.D. [id number] distribution width (RBC) [Ratio]12.6 %Iydmki62.6-14.8[facility] - Beech GroveComment on above: Performed By: #### [id number] ####[facility] [address] [address] Abbi Choudhary M.D. [id number] (Bld) [Volume fraction]33.5 %Low 36.0-46.0[facility] Beech GroveComment on above:Performed By: #### [id number] ####[facility] [address] [address] Abbi Choudhary M.D. 36 [id number] (Bld) [Mass/Vol]11.6 g/dLLow12.0-16.0[facility] Comment on above:Performed By: #### [id number] ####[facility] [address] [address] Abbi Choudhary M.D. [id number] ABSOLUTE0.07 K/mcLNormal 0.00-0.30[facility] GroveComment on above:Performed By: #### [id number] ####[facility] [address] [address] Abbi Choudhary M.D. 36 [id number] PERCENT0.80 %[facility] HospitalComment on above:Result Comment: The IG parameter is the percentage of metamyelocytes, myelocytes and promyelocytes.An immature granulocyte count (IG) of 1% or more suggests the possibility of infection, an IG countof 3% is very likely related to an infection.Performed By: #### [id number] ####[facility] [address] [address] Abbi Choudhary M.D. [id number] (Bld) [#/Vol]2.26 10*3/uLNormal0.90-4.00[facility] HospitalComment on above:Performed By: #### [id number] ####[facility] [address] [address] Abbi Choudhary M.D. [id number]/100 WBC (Bld)24.4 %[facility] HospitalComment on above:Performed By: #### [id number] ####[facility] [address] [address] Abbi Choudhary M.D. [id number] (RBC) [Entitic mass]30.4 pgNormal 26.0-34.0[facility] HospitalComment on above:Performed By: #### [id number] ####[facility] [address] [address] Abbi Choudhary M.D. 36 [id number] (RBC) [Entitic vol]87.7 rLLyggvg14.0-100.0[facility] Comment on above:Performed By: #### [id number] ####[facility] [address] [address] Abbi Choudhary M.D. [id number] CORPUSCULAR HEMOGLOBIN CONC34.6 g/eUQjbshp02.0-37.0[facility] GroveComment on above:Performed By: #### [id number] ####[facility] [address] [address] Abbi Choudhary M.D. [id number] (Bld) [#/Vol]0.54 10*3/uLNormal0.30-0.90[facility] GroveComment on above:Performed By: #### [id number] ####[facility] [address] [address] Abbi Choudhary M.D. [id number]/100 WBC (Bld) 5.8 %NormalUnion Hospital HospitalComment on above:Performed By: #### [id number] ####[facility] [address] [address] Abbi Choudhary M.D. 36 [id number] ABSOLUTE COUNT6.15 K/mcLNormal1.70-7.00[facility] GroveComment on above:Performed By: #### [id number] ####[facility] [address] [address] Abbi Choudhary M.D. [id number]/100 WBC (Bld) 66.4 %NormalSelect Specialty Hospital - Beech GroveComment on above:Performed By: #### [id number] ####[facility] [address] [address] Abbi Choudhary M.D. 36 [id number] mean volume (Bld) [Entitic vol]9.2 fLLow9.4-12.4[facility] GroveComment on above:Performed By: #### [id number] ####[facility] [address] [address] Abbi Choudhary M.D. [id number] (Bld) [#/Vol] 290 10*3/sIAothbd434-895TxqivxSelect Specialty Hospital - Beech GroveComment on above:Performed By: #### [id number] ####[facility] [address] [address] Abbi Choudhary M.D. [id number] (Bld) [#/Vol]3.82 10*6/uLLow4.00-5.20[facility] Comment on above:Performed By: #### [id number] ####[facility] [address] [address] Abbi Choudhary M.D. [id number] (Bld) [#/Vol]9.26 10*3/uLNormal 4.50-11.00[facility] Bee[facility] GroveComment on above:Performed By: #### [id number] ####[facility] [address] [address] Abbi Choudhary M.D. 36 [id number] Prov Noteon 47-69-8385CQ Prov NoteNoDeKalb Memorial Hospital TROPONIN X 2 (NOW AND REPEAT IN 2 HOURS)on 52-18-4107BDHTZDLW TROPONIN T NG/L24 ng/LOff scale high<=14[facility] Bee[facility] GroveComment on above:Performed By: #### [id number] ####[facility] [address] [place], [place] [address] Abbi Choudhary M.D. [id number] T INTERPRETATIONPossible acute cardiac injury.[facility] HospitalComment on above:Performed By: #### [id number] ####[facility] [address] [place], [place] [address] Abbi Choudhary M.D. [id number] ANKLE LEFT 3+ VIEWS (STANDARD)on 35-25-3802NG ANKLE LEFT 3+ VIEWS (STANDARD)[facility] HospitalComment on above:Order Comment: Injury/Trauma or Illness?:Injury/TraumaHow long have you had these symptoms (acute/ch ronic)?:AcuteReason for exam?:ankle painHistory of cancer?:uSurgeries, chemotherapy, or radiation?:pacemakerType of Exam?:InitialMechanism of injury?:fallXR CHEST PA/APon 31-06-4778JI CHEST PA/APNoDeKalb Memorial HospitalComment on above:Order Comment: Injury/Trauma or Illness?:Illness/OtherHow long have you had these symptoms (acute/ch ronic)?:AcuteReason for exam?:chest painHistory of cancer?:uSurgeries, chemotherapy, or radiation?:pacemakerType of Exam?:InitialAdditional signs and symptoms?:naXR KNEE LEFT 2 VIEWS (STANDARD)on 56-64-8673DE KNEE LEFT 2 VIEWS (STANDARD)[facility] HospitalComment on above:Order Comment: Injury/Trauma or Illness?:Injury/TraumaHow long have you had these symptoms (acute/chronic)?:AcuteReason for exam?:knee painHistory of cancer?:uSurgeries, chemotherapy, or radiation?:pacemakerType of Exam?:InitialMechanism of injury?:fallUrgent Care Clinic Visiton 70-88-0545[facility] [place] [address] - [address] JE[address] BAPTISTE 1975 (49 F) [id number] Verena Kuhn [facility] Report #: [id number] (Signed) PCP: No Doctor Urgent Care Clinic [...] coming to . 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 Provider HPI Details Patient presents today [...] no runny nose Card (more content not included)...[facility] (INCLUDES DIFF/PLT)on 07-21-3312Ivtaxwnmv (Bld) [#/Vol]0.093 10*3/uLNormal0-200Quest DiagnosticsComment on above:Performed By: #### 68535, 75842, 866, 899, 496, 6399, 66526 #### [facility] [address], [address] [place] [address] Relay Tester Helper: Dean Maddox MDBasophils/100 WBC (Bld)0.8 %NormalQuest DiagnosticsComment on above:Performed By: #### 13776, 77368, 866, 899, 496, 6399, 43005 #### [facility] [address] [place] [address] [address] , [address] [place] [address] Relay Tester Helper: Dean Maddox MDEosinophils (Bld) [#/Vol]0.22 10*3/uLNormal 15-500Quest DiagnosticsComment on above:Performed By: #### 16433, 42815, 866, 899, 496, 6399, 19324 #### [facility] [address] [place] [address] [address] , [address] [place] [address] Relay Tester Helper: Dean Maddox MDEosinophils/100 WBC (Bld)1.9 %NormalQuest DiagnosticsComment on above:Performed By: #### 05348, 55049, 866, 899, 496, 6399, 39182 #### [facility] [place] [address] Relay Tester Helper: Dean Maddox MDErythrocyte distribution width (RBC) [Ratio] 12.8 %Ebrfow53.0-15.0Quest DiagnosticsComment on above:Performed By: #### 57008, 56727, 866, 899, 496, 6399, 02972 #### [facility] [place] [address] Relay Tester Helper: Dean Maddox MDHematocrit (Bld) [Volume fraction]41.1 %Normal 35.0-45.0Quest DiagnosticsComment on above:Performed By: #### 95362, 03380, 866, 899, 496, 6399, 61769 #### [facility] [place] [address] Relay Tester Helper: Dean Maddox MDHemoglobin (Bld) [Mass/Vol]13.8 g/dLNormal 11.7-15.5Quest DiagnosticsComment on above:Performed By: #### 04180, 53624, 866, 899, 496, 6399, 01698 #### [facility] [place] [address] Relay Tester Helper: Dean Maddox MDLymphocytes (Bld) [#/Vol]2.401 10*3/uLNormal 850-3900Quest DiagnosticsComment on above:Performed By: #### 19965, 78906, 866, 899, 496, 6399, 27572 #### [facility] [place] [address] Relay Tester Helper: Dean Maddox MDLymphocytes/100 WBC (Bld)20.7 %NormalQuest DiagnosticsComment on above:Performed By: #### 71596, 15379, 866, 899, 496, 6399, 16756 #### [facility] of [address], [address] [place] [address] Relay Tester Helper: Dean JUAREZCH (RBC) [Entitic mass]30.1 zeLlivvq99.0-33.0 Quest DiagnosticsComment on above:Performed By: #### 35996, 03086, 866, 899, 496, 6399, 80879 #### [facility] of [address], [address] [place] [address] Relay Tester Helper: Dean JUAREZCHC (RBC) [Mass/Vol]33.6 g/pZHcbdog39.0-36.0 [facility] DiagnosticsComment on above:Result Comment: For adults, a slight decrease in the calculated MCHC value (in the range of 30 to 32 g/dL) is most likely not clinically significant; however, it should be interpreted with caution in correlation with other red cell parameters and the patient's clinical condition.Performed By: #### 27102, 51063, 866, 899, 496, 6399, 16424 #### [facility] of [place] [address] Relay Tester Helper: Dean JUAREZCV (RBC) [Entitic vol]89.7 cNMabsfg25.0-100.0 [facility] DiagnosticsComment on above:Performed By: #### 82502, 20347, 866, 899, 496, 6399, 78062 #### [facility] of [address], [address] [place], [place] [address] Relay Tester Helper: Dean Maddox MDMonocytes (Bld) [#/Vol]0.661 10*3/uLNormal 200-950Quest DiagnosticsComment on above:Performed By: #### 47049, 63401, 866, 899, 496, 6399, 12141 #### [facility] of [address] [place] [address] Relay Tester Helper: Dean Maddox MDMonocytes/100 WBC (Bld)5.7 %NormalQuest DiagnosticsComment on above:Performed By: #### 99982, 58419, 866, 899, 496, 6399, 93566 #### [facility] of [address] [place] [address], [address] [place] [address] Relay Tester Helper: Dean Maddox MDNeutrophils (Bld) [#/Vol]8.224 10*3/uLHigh 1500-7800Quest DiagnosticsComment on above:Performed By: #### 98377, 37710, 866, 899, 496, 6399, 39064 #### [facility] of [facility] [address] , [address] [place] [address] Relay Tester Helper: Dean Maddox MDNeutrophils/100 WBC (Bld)70.9 %NormalQuest DiagnosticsComment on above:Performed By: #### 18171, 26786, 866, 899, 496, 6399, 07574 #### [facility] of [address] [address], [address] [place] [address] Relay Tester Helper: Dean Maddox MDPlatelet mean volume (Bld) [Entitic vol]8.9 fL Normal7.5-12.5Quest DiagnosticsComment on above:Performed By: #### 12819, 84309, 866, 899, 496, 6399, 40685 #### [facility] of [facility] [address], [address] [place] [address] Relay Tester Helper: Dean Maddox MDPlatelets (Bld) [#/Vol]404 10*3/eEPlxr780-339 Quest DiagnosticsComment on above:Performed By: #### 09776, 36140, 866, 899, 496, 6399, 42102 #### [facility] of [place] [address], [address] [place] [address] Relay Tester Helper: Dean Maddox MDRBC (Bld) [#/Vol]4.58 10*6/uLNormal3.80-5.10 Quest DiagnosticsComment on above:Performed By: #### 10191, 61482, 866, 899, 496, 6399, 88124 #### [facility] [address] [facility], [address] [address] Relay Tester Helper: Dean Maddox MDBC (Bld) [#/Vol]11.6 10*3/uLHigh3.8-10.8Quest DiagnosticsComment on above:Performed By: #### 16986, 22417, 866, 899, 496, 6399, 12642 #### [facility] [address] [facility], [address] [place] [address] Relay Tester Helper: Dean Maddox [facility] Auto Differentialon 31-19-9313Ubzqsmcyo (Bld) [#/Vol]93 10*3/uLOhioHealthBasophils/100 WBC (Bld)0.8 %[facility] Eosinophils (Bld) [#/Vol]220 10*3/uLOhioHealthEosinophils/100 WBC (Bld)1.9 % [facility]bleErythrocyte distribution width (RBC) [Ratio]12.8 %11.0 - 15.0 % [facility]bleHematocrit (Bld) [Volume fraction]41.1 %35.0 - 45.0 %[facility] Hemoglobin (Bld) [Mass/Vol]13.8 g/dL11.7 - 15.5 g/dLOhioHealthInterpretation and review of laboratory resultsAbnormalOhioHealthLymphocytes (Bld) [#/Vol]2401 10*3/uLOhioHealthLymphocytes/100 WBC (Bld)20.7 %[facility] PrebleMCH (RBC) [Entitic mass]30.1 pg27.0 - 33.0 pgOhioHealthMCHC (RBC) [Mass/Vol]33.6 g/dL32.0 - 36.0 g/dLOhioHealthComment on above:For adults, a slight decrease in the calculated MCHC value (in the range of 30 to 32 g/dL) is most likely not clinically significant; however, it should be interpreted with caution in correlation with other red cell parameters and the patient's clinical condition. MCV (RBC) [Entitic vol]89.7 fL80.0 - 100.0 fLOhioHealthMonocytes (Bld) [#/Vol] 661 10*3/uLOhioHealthMonocytes/100 WBC (Bld)5.7 %OhioHealthNeutrophils (Bld) [#/Vol]8224 10*3/uLHighOhioHealthNeutrophils/100 WBC (Bld)70.9 %[facility] Platelet mean volume (Bld) [Entitic vol]8.9 fL7.5 - 12.5 fLOhioHealthPlatelets (Bld) [#/Vol]404 10*3/uLHighOhioHealthRBC (Bld) [#/Vol]4.58 10*6/uLOhioHealthWBC (Bld) [#/Vol]11.6 10*3/uLHighOhioHealthOhioHealthCOMPREHENSIVE METABOLIC PANEL W/ANION GAPon 83-74-3566Lrucsiw [Mass/Vol]4.1 g/dLNormal3.6-5.1[facility] Comment on above:Performed By: #### 62213, 19702, 866, 899, 496, 6399, 76831 #### [facility] [address] Relay Tester Helper: Dean Maddox MDALP [Catalytic activity/Vol]98 U/CAomenb28-015 [facility] DiagnosticsComment on above:Performed By: #### 88265, 83620, 866, 899, 496, 6399, 45372 #### [facility] [address] Relay Tester Helper: Dean Maddox MDALT [Catalytic activity/Vol]11 U/LNormal6-29 [facility] DiagnosticsComment on above:Performed By: #### 22489, 56922, 866, 899, 496, 6399, 50449 #### [facility] [address] [place] [address] Relay Tester Helper: Dean Maddox MDAST [Catalytic activity/Vol]10 U/UYenoyh95-41 [facility] DiagnosticsComment on above:Performed By: #### 95157, 53691, 866, 899, 496, 6399, 93100 #### [facility] of [place] [address] Relay Tester Helper: Dean Maddox MDBilirubin [Mass/Vol]0.4 mg/dLNormal0.2-1.2 Quest DiagnosticsComment on above:Performed By: #### 88331, 36756, 866, 899, 496, 6399, 98589 #### [facility] of [place] [address] Relay Tester Helper: Dean Maddox MDCalcium [Mass/Vol]9.6 mg/dLNormal8.6-10.2Quest DiagnosticsComment on above:Performed By: #### 79537, 67557, 866, 899, 496, 6399, 38953 #### [facility] of [place] [address] Relay Tester Helper: Dean Maddox MDChloride [Moles/Vol]105 mmol/JToqmbk20-920 [facility] DiagnosticsComment on above:Performed By: #### 90316, 04071, 866, 899, 496, 6399, 04908 #### [facility] of [place] [address] Relay Tester Helper: Dean Maddox MDCO2 [Moles/Vol]20 mmol/UIyokpq34-45Czmye DiagnosticsComment on above:Performed By: #### 62770, 14611, 866, 899, 496, 6399, 59991 #### [facility] of [place] [address] Relay Tester Helper: Dean Maddox MDCreatinine [Mass/Vol]1.30 mg/dLHigh0.50-0.99 Quest DiagnosticsComment on above:Performed By: #### 58951, 38766, 866, 899, 496, 6399, 27054 #### [facility] [address], [address] [place] [address] Relay Tester Helper: Dean Maddox MDELECTROLYTE NPGECEV24 mmol/L (calc)Normal7-17 Quest DiagnosticsComment on above:Performed By: #### 45242, 62094, 866, 899, 496, 6399, 69519 #### [facility] [address], [address] [place] [address] Relay Tester Helper: Dean Maddox MDGFR/1.73 sq M.predicted among non-blacks MDRD (S/P/Bld) [Vol rate/Area]51 mL/min/{1.73_m2}Low> OR = 60Quest DiagnosticsComment on above:Performed By: #### 57792, 91998, 866, 899, 496, 6399, 93250 #### [facility] [address], [address] [place] [address] Relay Tester Helper: Dean Maddox MDGlucose [Mass/Vol]214 mg/yUGhkx40-66Jlakh DiagnosticsComment on above:Result Comment: Fasting reference interval For someone without known diabetes, a glucose value >125 mg/dL indicates that they may have diabetes and this should be confirmed with a follow-up test.Performed By: #### 94428, 91246, 866, 899, 496, 6399, 98360 #### [facility] [address], [address] [place] [address] Relay Tester Helper: Dean Maddox MDPotassium [Moles/Vol]4.9 mmol/LNormal3.5-5.3 [facility] DiagnosticsComment on above:Performed By: #### 52827, 32084, 866, 899, 496, 6399, 30354 #### [facility] [address], [address] [place] [address] Relay Tester Helper: Dean aMddox MDProtein [Mass/Vol]7.0 g/dLNormal6.1-8.1Quest DiagnosticsComment on above:Performed By: #### 43908, 95505, 866, 899, 496, 6399, 66168 #### [facility] [address], [address] [place] [address] Relay Tester Helper: Dean Maddox MDSodium [Moles/Vol]136 mmol/UBgmjwn243-960Zorjf DiagnosticsComment on above:Performed By: #### 04888, 79296, 866, 899, 496, 6399, 36943 #### [facility] [address], [address] [place] [address] Relay Tester Helper: Dean Maddox MDUrea nitrogen [Mass/Vol]30 mg/dLHigh7-25Quest DiagnosticsComment on above:Performed By: #### 35214, 75925, 866, 899, 496, 6399, 96862 #### [facility] [address], [address] [place] [address] Relay Tester Helper: Dean Maddox MDComprehensive metabolic 2000 panelon 07-55-2974Ueiaicx [Mass/Vol]4.1 g/dL3.6 - 5.1 g/dLOhioHealthALP [Catalytic activity/Vol]98 U/L31 - 125 U/LOhioHealthALT [Catalytic activity/Vol]11 U/L6 - 29 U/LOhioHealthAnion gap [Moles/Vol]11 mmol/LOhioHealthAST [Catalytic activity/Vol]10 U/L10 - 35 U/LOhioHealthBilirubin [Mass/Vol]0.4 mg/dL0.2 - 1.2 mg/dLOhioHealthCalcium [Mass/Vol]9.6 mg/dL8.6 - 10.2 mg/dLOhioHealthChloride [Moles/Vol]105 mmol/L98 - 110 mmol/LOhioHealthCO2 [Moles/Vol]20 mmol/L20 - 32 mmol/LOhioHealthCreatinine [Mass/Vol]1.3 mg/dLHigh0.50 - 0.99 mg/dLOhioHealth GFR/1.73 sq M.predicted among non-blacks MDRD (S/P/Bld) [Vol rate/Area]51 mL/min/{1.73_m2}Low> OR = 60 mL/min/1.79z5VqgeThztmxNhcnrgg [Mass/Vol]214 mg/dL High65 - 99 mg/dLOhioHealthComment on above: Fasting reference interval For someone without known diabetes, a glucose value >125 mg/dL indicates that they may have diabetes and this should be confirmed with a follow-up test. Potassium [Moles/Vol]4.9 mmol/L3.5 - 5.3 mmol/LOhioHealthProtein [Mass/Vol]7 g/dL6.1 - 8.1 g/dLOhioHealthSodium [Moles/Vol]136 mmol/L135 - 146 mmol/L OhioHealthUrea nitrogen [Mass/Vol]30 mg/dLHigh7 - 25 mg/dLOhioHealthHEMOGLOBIN A1con 04-91-5070VQXKFEQABT A1c10.6 % of total HgbHigh<5.7[facility] Comment on above:Result Comment: For someone without known diabetes, a [...] hemoglobin A1c for diagnosis of diabetes for children.Performed By: #### 96591, 93211, 866, 899, 496, 6399, 58440 #### [facility] [address], [address] [place] [address] Relay Tester Helper: Dean Whyte AB W/REFL TO HCV RNA, QN, PCRon 00-36-4100NSJWZOQWG C ANTIBODYNormalQuest DiagnosticsComment on above:Performed By: #### 29832, 64371, 866, 899, 496, 6399, 03364 #### [facility] [address], [address] [place] [address] Relay Tester Helper: Dean Maddox MDHIV 1/2 ANTIGEN/ANTIBODY,FOURTH GENERATION W/RFLon 49-19-9907CSZ AG/AB, 4TH GENNormalQuest DiagnosticsComment on above: Performed By: #### 63578, 44339, 866, 899, 496, 6399, 12560 #### [facility] [address], [address] [place] [address] Relay Tester Helper: Dean Maddox MDHIV Antibody (HIV1/HIV2)on 45-37-5640ZVL 1+2 Ab+HIV1 p24 Ag IA NbMjv-JzaubzpcPOD-LTACACIPAmbcKxulpkZxevzlr on above:HIV-1 antigen and HIV-1/HIV-2 antibodies were not detected. [...] purpose. For additional information please refer to http://education.[employer] Warrior/faq/IBI879 (This link is being provided for informational/ educational purposes only.) The performance of this assay has not been clinically validated in patients less than 2 years old. HbA1c (Bld) [Mass fraction]on 07-83-7263Buvftydttmclyz and review of laboratory resultsAbnormalOhioHealthOhioHealthHemoglobin A1con 05-17-8636RuV0d (Bld) [Mass fraction]10.6 %HighNINFOhioHealthComment on above:For someone without known diabetes, a hemoglobin A1c [...] for children. Hepatitis C Ab with Reflex to HCV Virus Quantitationon 32-82-4805JYS Ab IA Ql Imh-BcqvsfwtHMA-DGMNZIQKNifeXbhvsdXcihjcc on above: HCV antibody was non-reactive. There is no laboratory evidence of HCV infection. In most cases, no further action is required. However, if recent HCV exposure is suspected, a test for HCV RNA (test code 15237) is suggested. For additional information please refer to http://[employer]/faq/WVS11i2 (This link is being provided for informational/ educational purposes only.) LIPID PANEL WITH REFLEX TO DIRECT LDLon 97-58-6784Jnplxiedyyj [Mass/Vol]232 mg/dLHigh<200Quest DiagnosticsComment on above:Performed By: #### 35133, 72531, 866, 899, 496, 6399, 42518 #### [facility] [address], [address] [place], [place] [address] Relay Tester Helper: Dean Maddox MDCholesterol in HDL [Mass/Vol]58 mg/dLNormal> OR = 50Quest DiagnosticsComment on above:Performed By: #### 01668, 64714, 866, 899, 496, 6399, 72942 #### [facility] [address], [address] [place], [place] [address] Relay Tester Helper: Dean Maddox MDCholesterol in LDL [Mass/Vol]144 mg/dLHigh Quest DiagnosticsComment on above:Result Comment: Reference range: <100 Desirable range <100 mg/dL for primary prevention; <70 mg/dL for patients with CHD or diabetic patients with > or = 2 CHD risk factors. LDL-C is now calculated using the Miguel Ángel calculation, which is a validated novel method providing better accuracy than the Friedewald equation in the estimation of LDL-C. Antoine GREGG et al. CHOLO. 2013;310(19): 2166-3877 (http://education.[employer].Phone Warrior/faq/ILV845)Performed By: #### 93796, 94518, 866, 899, 496, 6399, 55790 #### [facility] [address], [address] [place] [address] Relay Tester Helper: Dean GUARDADOholesterothuy.total/Cholesterol in HDL [Mass ratio]4.0 {ratio}Normal<5.0Quest DiagnosticsComment on above:Performed By: #### 11540, 72028, 866, 899, 496, 6399, 15154 #### [facility] [address], [address] [place] [address] Relay Tester Helper: Dean BOLTON HDL QKZDQLFVOZA494 mg/dL (calc)High<130 Quest DiagnosticsComment on above:Result Comment: For patients with diabetes plus 1 major ASCVD risk factor, treating to a non-HDL-C goal of <100 mg/dL (LDL-C of <70 mg/dL) is considered a therapeutic option.Performed By: #### 38895, 72973, 866, 899, 496, 6399, 14926 #### [facility] [place] [address] Relay Tester Helper: Dean Maddox MDTriglyceride [Mass/Vol]167 mg/dLHigh<150Quest DiagnosticsComment on above:Performed By: #### 92058, 29491, 866, 899, 496, 6399, 35799 #### [facility] [address], [address] [place] [address] Relay Tester Helper: Dean Maddox MDLipid 1996 panelon 81-62-4433Ivttthayxef [Mass/Vol]232 mg/dLHighNINF - 200 mg/dLOhioHealthCholesterol in HDL [Mass/Vol]58 mg/dL> OR = 50OhioHealthCholesterol in LDL [Mass/Vol]144 mg/dLHighmg/dL (calc) OhioHealthComment on above:Reference range: <100 Desirable range <100 mg/dL for primary prevention; <70 mg/dL for patients with CHD or diabetic patients with > or = 2 CHD risk factors. LDL-C is now calculated using the Miguel Ángel calculation, which is a validated novel method providing better accuracy than the Friedewald equation in the estimation of LDL-C. Antoine GREGG et al. CHOLO. 2013;310(19): 2231-6155 (http://education.[employer]/faq/XEC603) Cholesterol non HDL [Mass/Vol]174 mg/dLHighNINFOhioHealthComment on above:For patients with diabetes plus 1 major ASCVD risk factor, treating to a non-HDL-C goal of <100 mg/dL (LDL-C of <70 mg/dL) is considered a therapeutic option. Cholesterol.total/Cholesterol in HDL [Mass ratio]4 {ratio}NINFOhioHealth Triglyceride [Mass/Vol]167 mg/dLHighNINF - 150 mg/dLOhioHealthNo Panel Information 75-13-4929BrudLtujrcKdsbjyrxwejgwq and review of laboratory resultsAbnormalOhioHealthOhioHealthOhioHealthT4, [facility] 21-52-5215Oxow T4 [Mass/Vol]0.9 ng/dLNormal0.8-1.8Quest DiagnosticsComment on above:Performed By: #### 58757, 23017, 866, 899, 496, 6399, 78569 #### [facility] [place] [address] Relay Tester Helper: Dean Maddox MDT4, [facility] 30-21-8966Zafx T4 [Mass/Vol]0.9 ng/dL0.8 - 1.8 ng/dLJ.W. Ruby [facility] 85-84-6476BII Qn3.54 m[IU]/LNormalQuest DiagnosticsComment on above:Result Comment: Reference Range > or = 20 Years 0.40-4.50 Ranges First trimester 0.26-2.66 Second trimester 0.55-2.73 Third trimester 0.43-2.91Performed By: #### 44054, 36567, 866, 899, 496, 6399, 85119 #### [facility] [place] [id number] Relay Tester Helper: Dean Maddox [facility] DL <= 0.005 mIU/L Qnon 97-94-2184AAX Qn 3.54 m[IU]/LmIU/LOhioHealthComment on above:Reference Range > or = 20 Years 0.40-4.50 Ranges First trimester 0.26-2.66 Second trimester 0.55-2.73 Third trimester 0.43-2.91 XR KNEES BILATERAL 2 VIEWS EACH (STANDARD)on 48-42-6526QL KNEES BILATERAL 2 VIEWS EACH (STANDARD)[facility] HospitalComment on above:Order Comment: Injury/Trauma or Illness?:Illness/OtherHow long have you had these symptoms (acute/chronic)?:UnknownReason for exam?:Bilateral knee painHistory of cancer?:uSurgeries, chemotherapy, or radiation?:pacemakerType of Exam?:UnknownAdditional signs and symptoms?:noneED Prov Noteon 07-68-9708DS Prov NoteNoDeKalb Memorial HospitalXR HAND LEFT 3+ VIEWS (STANDARD)on 05-23-2024 XR HAND LEFT 3+ VIEWS (STANDARD)[facility] HospitalComment on above: Order Comment: Injury/Trauma or Illness?:Illness/OtherHow long have you had these symptoms (acute/chronic)?:AcuteReason for exam?:Lt hand pain with swellingHistory of cancer?:uSurgeries, chemotherapy, or radiation?:pacemakerType of Exam?:InitialAdditional signs and symptoms?:Lt hand pain with swellingCBCon 73-73-2628UNQS NRBC0.0 %[facility] HospitalComment on above:Performed By: #### [id number] ####[facility] [address] [place], [place] [address] Abbi Choudhary M.D. [id number] NRBC ABS COUNT0.00 K/mcLNormal0.00-0.00[facility] Beech GroveComment on above:Performed By: #### [id number] ####[facility] [address] [place], [place] [address] Abbi Choudhary M.D. [id number] distribution width (RBC) [Ratio]13.4 %Jhxuas79.6-14.8[facility] Beech GroveComment on above: Performed By: #### 28552 ####[facility] [address] [place] [address] Abbi Choudhary M.D. [id number] (Bld) [Volume fraction]29.3 %Low36.0-46.0 [facility] Bee[facility] GroveComment on above:Performed By: #### 62696 ####[facility] [address] [place] [address] Abbi Choudhary M.D. [id number] (Bld) [Mass/Vol]9.6 g/dLLow12.0-16.0[facility] GroveComment on above: Performed By: #### [id number] ####[facility] [address] [place] [address] Abbi Choudhary M.D. [id number] (RBC) [Entitic mass]31.0 jfPrswcg13.0-34.0[facility] GroveComment on above:Performed By: #### 61207 ####[facility] [address] [place] [address] Abbi Choudhary M.D. [id number] (RBC) [Entitic vol]94.5 dKYqbxky02.0-100.0[facility] GroveComment on above: Performed By: #### 21611 ####[facility] [address] [place] [address] Abbi Choudhary M.D. [id number] CORPUSCULAR HEMOGLOBIN CONC32.8 g/dLNormal 31.0-37.0[facility] Bee[facility] GroveComment on above:Performed By: #### 70387 ####[facility] [address] [place] [address] Abbi Choudhary M.D. 36D0 314883Wpkhwqka mean volume (Bld) [Entitic vol]9.7 fLNormal9.4-12.4[facility] GroveComment on above:Performed By: #### 51642 ####[facility] [address] [place] [address] Abbi Choudhary M.D. [id number] (Bld) [#/Vol]289 10*3/tPCtazmy642-044SlrdcqSelect Specialty Hospital - Beech GroveComment on above:Performed By: #### 96029 ####[facility] [address] [place], [place] [address] Abbi Choudhary M.D. [id number] (Bld) [#/Vol]3.10 10*6/uLLow4.00-5.20[facility] Comment on above:Performed By: #### 45553 ####[facility] [address] [place] [address] Abbi Choudhary M.D. [id number] (Bld) [#/Vol]6.78 10*3/uLNormal 4.50-11.00[facility] Bee[facility] GroveComment on above:Performed By: #### 91680 ####[facility] [address] [place] [address] Abbi Choudhary M.D. 36D0 [id number] panel Auto (Bld)on 67-39-3268Yigowzfkxqd distribution width (RBC) [Entitic vol]13.4 %11.6 - 14.8 %OhioHealthHematocrit (Bld) [Volume fraction]29.3 %Low36.0 - 46.0 %OhioHealthHemoglobin (Bld) [Mass/Vol]9.6 g/dLLow12.0 - 16.0 g/dLOhioHealthInterpretation and review of laboratory resultsAbnormalOhioHealth MCH (RBC) [Entitic mass]31 pg26.0 - 34.0 pgOhioHealthMCHC (RBC) [Mass/Vol]32.8 g/dL31.0 - 37.0 g/dLOhioHealthMCV (RBC) [Entitic vol]94.5 fL80.0 - 100.0 fL OhioHealthNucleated RBC (Bld) [#/Vol]0 10*3/uLOhioHealthNucleated RBC/100 WBC (Bld) [Ratio]0 %OhioHealthPlatelet mean volume (Bld) [Entitic vol]9.7 fL9.4 - 12.4 fLOhioHealthPlatelets (Bld) [#/Vol]289 10*3/uLOhioHealthRBC (Bld) [#/Vol] 3.1 10*6/uLLowOhioHealthWBC (Bld) [#/Vol]6.78 10*3/uLOhioHealthOhioHealthDisch Sum[place] 22-06-5216Smjuo [facility] Health CrawfordsvilleGlucose (Bld) [Mass/Vol] on 36-34-9043Qrsnsfl [Mass/Vol]240 mg/iPRnpk51 - 99 mg/dLOhioMercy Health [address]. [facility] Interpretation and review of laboratory resultsAbnoBrecksville VA / Crille Hospital Glucose [Mass/Vol]340 mg/iIAknr15 - 99 mg/dLKyioHealthInterpretation and review of laboratory resultsAbnoBrecksville VA / Crille HospitalPOC GLUCOSE - [facility]on 04-29-2024 Glucose [Mass/Vol]240 mg/dCJylu85-16KrniyeColumbus Regional HealthComment on above: Performed By: #### 84859 #### [facility] [address] [place] [address] Abbi Choudhary M.D. [id number] [Mass/Vol]340 mg/sDEtjj50-83WejmvxColumbus Regional HealthComment on above:Performed By: #### 72803 ####[facility] [address] [place] [address] Abbi Choudhary M.D. [id number] FUNCTION PANELon 07-14-9868Qestnwf [Mass/Vol]3.2 g/dLNormal3.2-5.2MColumbus Regional HealthComment on above:Order Comment: [facility] has implemented the eGFR calculation approach that does not have a coefficient for race that conforms to the NKF-ASN Task Force Recommendations.Performed By: #### 85672 ####[facility] [address] [place] [address] Abbi Choudhary M.D. [id number] gap [Moles/Vol]15 mmol/PQavefj12-45WlxrnySelect Specialty Hospital - Beech GroveComment on above:Order Comment: [facility] has implemented the eGFR calculation approach that does not have a coefficient for race that conforms to the NKF-ASN Task Force Recommendations.Performed By: #### [id number] ####[facility] [address] [place], [place] [address] Abbi Choudhary M.D. [id number] [Mass/Vol]8.5 mg/dLNormal8.4-10.2MRiley Hospital for Children on above:Order Comment: [facility] has implemented the eGFR calculation approach that does not have a coefficient for race that conforms to the NKF-ASN Task Force Recommendations.Performed By: #### 61695 ####[facility] [address] [place], [place] [address] Abbi Choudhary M.D. [id number] [Moles/Vol]104 mmol/L Dgccww07-089BqtofyMargaret Mary Community Hospital on above:Order Comment: [facility] has implemented the eGFR calculation approach that does not have a coefficient for race that conforms to the NKF-ASN Task Force Recommendations.Performed By: #### 23911 ####[facility] [address] [place], [place] [address] Abbi Choudhary M.D. [id number] [Mass/Vol]1.72 mg/dLHigh 0.40-1.10[facility] on above:Order Comment: [facility] has implemented the eGFR calculation approach that does not have a coefficient for race that conforms to the NKF-ASN Task Force Recommendations.Performed By: #### 91419 ####[facility] [address] [place], [place] [address] Abbi Choudhary M.D. [id number] mL/min/1.73 m2Low>=60[facility] on above:Order Comment: [facility] has implemented the eGFR calculation approach that does not have a coefficient for race that conforms to the NKF-ASN Task Force Recommendations.Result Comment: Estimated GFR was calculated using the 2020 CKD-EPI creatinine equation. Performed By: #### 49284 ####[facility] [address] [place], [place] [address] Abbi Choudhary M.D. [id number] [Mass/Vol]358 mg/sLSwqq87-46UfjscwRiley Hospital for Children on above:Order Comment: [facility] has implemented the eGFR calculation approach that does not have a coefficient for race that conforms to the NKF-ASN Task Force Recommendations.Performed By: #### 04386 ####[facility] [address] [place] [address] Abbi Choudhary M.D. [id number] (Bld) [Moles/Vol]23 mmol/FOvhrke56-32YbrnhkSelect Specialty Hospital - [facility] [place] Comment on above:Order Comment: [facility] has implemented the eGFR calculation approach that does not have a coefficient for race that conforms to the NKF-ASN Task Force Recommendations.Performed By: #### 53935 #### [facility] [address] [place] [address] Abbi Choudhary M.D. 36D0 918190Lfpjvjjyt [Mass/Vol]4.0 mg/dLNormal2.7-4.5[facility] on above:Order Comment: [facility] has implemented the eGFR calculation approach that does not have a coefficient for race that conforms to the NKF-ASN Task Force Recommendations.Performed By: #### 94566 ####[facility] [address] [place] [address] Abbi Choudhary M.D. [id number] [Moles/Vol]4.5 mmol/LNormal3.5-5.1MRiley Hospital for Children on above:Order Comment: [facility] has implemented the eGFR calculation approach that does not have a coefficient for race that conforms to the NKF-ASN Task Force Recommendations.Performed By: #### 10043 ####[facility] [address] [place] [address] Abbi Choudhary M.D. [id number] [Moles/Vol]137 mmol/FBlzreg649-415EyneddMargaret Mary Community Hospital on above:Order Comment: [facility] has implemented the eGFR calculation approach that does not have a coefficient for race that conforms to the NKF-ASN Task Force Recommendations.Performed By: #### 52969 ####[facility] [address] [place] [address] Abbi Choudhary M.D. [id number] nitrogen [Mass/Vol]30 mg/dLHigh8-25[facility] Bee[facility] GroveComment on above:Order Comment: [facility] has implemented the eGFR calculation approach that does not have a coefficient for race that conforms to the NKF-ASN Task Force Recommendations.Performed By: #### 54758 ####[facility] [address] [place], [place] [address] Abbi Choudhary M.D. [id number] nitrogen/Creatinine [Mass ratio]17.4 mg/maOkvurc81.0-20.0[facility] Bee[facility] GroveComascension standish hospital on above:Order Comment: [facility] has implemented the eGFR calculation approach that does not have a coefficient for race that conforms to the NKF-ASN Task Force Recommendations.Performed By: #### 88687 ####[facility] [address] [place], [place] [address] Abbi Choudhary M.D. [id number] function 2000 panel on 63-14-8398Oipmxpn [Mass/Vol]3.2 g/dL3.2 - 5.2 g/dLOhioHealthAnion gap [Moles/Vol]15 mmol/L10 - 20 mmol/LOhioHealthCalcium [Mass/Vol]8.5 mg/dL8.4 - 10.2 mg/dLOhioHealthChloride [Moles/Vol]104 mmol/L98 - 108 mmol/LOhioHealth Creatinine [Mass/Vol]1.72 mg/dLHigh0.40 - 1.10 mg/dLOhioHealthGFR/1.73 sq M.predicted CKD-EPI (S/P/Bld) [Vol rate/Area]37Low- PINFOhioHealthComment on above:Estimated GFR was calculated using the 2020 CKD-EPI creatinine equation. Glucose [Mass/Vol]358 mg/qBEguy03 - 99 mg/dLOhioHealthHCO3 [Moles/Vol]23 mmol/L 21 - 32 mmol/LOhioHealthInterpretation and review of laboratory resultsAbnormal OhioHealthPhosphate [Mass/Vol]4 mg/dL2.7 - 4.5 mg/dLOhioHealthPotassium [Moles/Vol]4.5 mmol/L3.5 - 5.1 mmol/LOhioHealthSodium [Moles/Vol]137 mmol/L135 - 145 mmol/LOhioHealthUrea nitrogen [Mass/Vol]30 mg/dLHigh8 - 25 mg/dLOhioMercy Health St. Rita'[facility] Urea nitrogen/Creatinine [Mass ratio]17.4 mg/mg10.0 - 20.0OhioKind[facility] has implemented the eGFR calculation approach that does not have a coefficient for race that conforms to the NKF-ASN Task Force Recommendations.[facility] 24-10-5828WMOZ NRBC0.0 %NormalSelect Specialty Hospital - Beech GroveComment on above:Performed By: #### [id number] ####[facility] [address] [place] [address] Abbi Choudhary M.D. [id number] NRBC ABS COUNT0.00 K/mcLNormal0.00-0.00[facility] GroveComment on above:Performed By: #### 34009 ####[facility] [address] [place], [place] [address] Abbi Choudhary M.D. [id number] distribution width (RBC) [Ratio]13.2 %Mnoulj49.6-14.8 [facility] GroveComment on above:Performed By: #### 38390 ####[facility] [address] [place] [address] Abbi Choudhary M.D. [id number] (Bld) [Volume fraction]27.7 %Low36.0-46.0[facility] Bee[facility] GroveComment on above:Performed By: #### 38849 ####[facility] [address] [place], [place] [address] Abbi Choudhary M.D. [id number] (Bld) [Mass/Vol]9.4 g/dLLow12.0-16.0 [facility] Crown Pointment on above:Performed By: #### 40612 ####[facility] [address] [place] [address] Abbi Choudhary M.D. [id number] (RBC) [Entitic mass]31.9 ybWczgsg57.0-34.0[facility] HospitalComment on above: Performed By: #### 19354 ####[facility] [address] [place] [address] Abbi Choudhary M.D. [id number] (RBC) [Entitic vol]93.9 gVIodbrk43.0-100.0[facility] HospitalComment on above:Performed By: #### 60154 ####[facility] [address] [place] [address] Abbi Choudhary M.D. [id number] CORPUSCULAR HEMOGLOBIN CONC33.9 g/jTHfxoag03.0-37.0[facility] GroveComment on above: Performed By: #### 47156 ####[facility] [address] [place] [address] Abbi Choudhary M.D. [id number] mean volume (Bld) [Entitic vol]9.7 fLNormal 9.4-12.4[facility] Bee[facility] GroveComment on above:Performed By: #### 62644 ####[facility] [address] [place] [address] Abbi Choudhary M.D. [id number] Platelets (Bld) [#/Vol]277 10*3/cUNalqxb788-274QwjvlaSelect Specialty Hospital - Beech GroveComment on above:Performed By: #### 37391 ####[facility] [address] [place] [address] Abbi Choudhary M.D. [id number] (Bld) [#/Vol]2.95 10*6/uLLow4.00-5.20 [facility] GroveComment on above:Performed By: #### 74141 ####[facility] [address] [place] [address] Abbi Choudhary M.D. [id number] (Bld) [#/Vol]8.19 10*3/uLNormal4.50-11.00[facility] GroveComment on above: Performed By: #### 70636 ####[facility] [address] [place], [place] [address] Abbi Choudhary M.D. [id number] panel Auto (Bld)on 53-12-2173Rpncrseniwd distribution width (RBC) [Entitic vol]13.2 %11.6 - 14.8 %OhioHealthHematocrit (Bld) [Volume fraction]27.7 %Low36.0 - 46.0 %OhioHealthHemoglobin (Bld) [Mass/Vol]9.4 g/dLLow12.0 - 16.0 g/dLOhioHealthInterpretation and review of laboratory resultsAbnormalOhioHealthMCH (RBC) [Entitic mass]31.9 pg26.0 - 34.0 pgOhioHealthMCHC (RBC) [Mass/Vol]33.9 g/dL31.0 - 37.0 g/dLOhioHealthMCV (RBC) [Entitic vol]93.9 fL80.0 - 100.0 fLOhioHealthNucleated RBC (Bld) [#/Vol]0 10*3/uLOhioHealthNucleated RBC/100 WBC (Bld) [Ratio]0 %OhioHealthPlatelet mean volume (Bld) [Entitic vol]9.7 fL9.4 - 12.4 fLOhioHealthPlatelets (Bld) [#/Vol] 277 10*3/uLOhioHealthRBC (Bld) [#/Vol]2.95 10*6/uLLowOhioHealthWBC (Bld) [#/Vol] 8.19 10*3/uLOhioHealthOhioHealthGlucose (Bld) [Mass/Vol]on 13-12-0634Fouwssa [Mass/Vol]236 mg/oLNjyy69 - 99 mg/dLOhioHealthInterpretation and review of laboratory resultsAbnormalOhioHealthOhioHealthGlucose [Mass/Vol]282 mg/jDXwwu41 - 99 mg/dLOhioHealthInterpretation and review of laboratory resultsAbnormal OhioHealthOhioHealthGlucose [Mass/Vol]267 mg/mUPkch21 - 99 mg/dLOhioHealth Interpretation and review of laboratory resultsAbnormalOhioHealthOhioHealth Glucose [Mass/Vol]315 mg/nOWtzd09 - 99 mg/dLOhioHealthInterpretation and review of laboratory resultsAbnormMiami Valley Hospital GLUCOSE [facility] 04-28-2024 Glucose [Mass/Vol]236 mg/tTAdih05-65LoawpuColumbus Regional HealthComment on above: Performed By: #### 61512 ####[facility] [address] [place], [place] [address] Abbi Choudhary M.D. [id number] [Mass/Vol]282 mg/dGQaha49-24Lgaybo47 Duncan StreetComment on above:Performed By: #### 01348 ####[facility] [address] [place] [address] Abbi Choudhary M.D. [id number] [Mass/Vol]267 mg/dL Lual49-32Mzkjxw86 Willis StreetComment on above:Performed By: #### 95996 ####[facility] [address] [place] [address] Abbi Choudhary M.D. 36D0 479964Ibneync [Mass/Vol]315 mg/zVCzqe68-25Hpttxq47 Duncan StreetComment on above:Performed By: #### 71258 ####[facility] [address] [place] [address] Abbi Choudhary M.D. [id number] FUNCTION PANELon 69-25-2136Pjrahoe [Mass/Vol]3.1 g/dLLow3.2-5.2MColumbus Regional HealthComment on above:Order Comment: [facility] has implemented the eGFR calculation approach that does not have a coefficient for race that conforms to the NKF-ASN Task Force Recommendations.Performed By: #### 19448 ####[facility] [address] [place] [address] Abbi Choudhary M.D. [id number] gap [Moles/Vol]15 mmol/WYmbqbl24-27QajapvMargaret Mary Community Hospital on above:Order Comment: [facility] [employer] [facility] has implemented the eGFR calculation approach that does not have a coefficient for race that conforms to the NKF-ASN Task Force Recommendations.Performed By: #### 06294 ####[facility] [address] [place], [place] [address] Abbi Choudhary M.D. [id number] [Mass/Vol]8.7 mg/dL Normal8.4-10.2MRiley Hospital for Children on above:Order Comment: [facility] has implemented the eGFR calculation approach that does not have a coefficient for race that conforms to the NKF-ASN Task Force Recommendations.Performed By: #### [id number] ####[facility] [address] [place], [place] [address] Abbi Choudhary M.D. [id number] [Moles/Vol]102 mmol/LNormal 98-108[facility] on above:Order Comment: [facility] has implemented the eGFR calculation approach that does not have a coefficient for race that conforms to the NKF-ASN Task Force Recommendations.Performed By: #### [id number] ####[facility] [address] [place], [place] [address] Abbi Choudhary M.D. [id number] [Mass/Vol]1.68 mg/dLHigh 0.40-1.10[facility] on above:Order Comment: [facility] has implemented the eGFR calculation approach that does not have a coefficient for race that conforms to the NKF-ASN Task Force Recommendations.Performed By: #### [id number] ####[facility] [address] [place], [place] [address] Abbi Choudhary M.D. [id number] mL/min/1.73 m2Low>=60[facility] on above:Order Comment: [facility] has implemented the eGFR calculation approach that does not have a coefficient for race that conforms to the NKF-ASN Task Force Recommendations.Result Comment: Estimated GFR was calculated using the 2020 CKD-EPI creatinine equation. Performed By: #### [id number] ####[facility] [address] [place], [place] [address] Abbi Choudhary M.D. [id number] [Mass/Vol]408 mg/dLOff scale dhar38-50IzkzikRiley Hospital for Children on above:Order Comment: [facility] has implemented the eGFR calculation approach that does not have a coefficient for race that conforms to the NKF-ASN Task Force Recommendations.Performed By: #### [id number] ####[facility] [address] [place] [address] Abbi Choudhary M.D. [id number] (Bld) [Moles/Vol]24 mmol/DFzpyif73-93GkaxdvSelect Specialty Hospital - [facility] Comment on above:Order Comment: [facility] has implemented the eGFR calculation approach that does not have a coefficient for race that conforms to the NKF-ASN Task Force Recommendations.Performed By: #### 76752 ####[facility] [address] [address] Abbi Choudhary M.D. 36D0 717953Mfgppubmj [Mass/Vol]3.8 mg/dLNormal2.7-4.5[facility] Beech GroveComment on above:Order Comment: [facility] has implemented the eGFR calculation approach that does not have a coefficient for race that conforms to the NKF-ASN Task Force Recommendations.Performed By: #### [id number] ####[facility] [address] [address] Abbi Choudhary M.D. [id number] [Moles/Vol]4.5 mmol/LNormal3.5-5.1MColumbus Regional HealthComment on above:Order Comment: [facility] has implemented the eGFR calculation approach that does not have a coefficient for race that conforms to the NKF-ASN Task Force Recommendations.Performed By: #### 57023 ####[facility] [address] [place] [address] Abbi Choudhary M.D. [id number] [Moles/Vol]136 mmol/WIiekmf601-269LlqrdkSelect Specialty Hospital - Beech GroveComment on above:Order Comment: [facility] has implemented the eGFR calculation approach that does not have a coefficient for race that conforms to the NKF-ASN Task Force Recommendations.Performed By: #### 50032 ####[facility] [address] [place] [address] Abbi Choudhary M.D. [id number] nitrogen [Mass/Vol]27 mg/dLHigh8-25[facility] on above:Order Comment: [facility] has implemented the eGFR calculation approach that does not have a coefficient for race that conforms to the NKF-ASN Task Force Recommendations.Performed By: #### 90683 ####[facility] [address] [place], [place] [address] Abbi Choudhary M.D. [id number] nitrogen/Creatinine [Mass ratio]16.1 mg/wkRekkys59.0-20.0[facility] on above:Order Comment: [facility] has implemented the eGFR calculation approach that does not have a coefficient for race that conforms to the NKF-ASN Task Force Recommendations.Performed By: #### [id number] ####[facility] [address] [place], [place] [address] Abbi Choudhary M.D. [id number] function 2000 panel Ordered By: Navneet Parr on 93-25-9281Akgbtlg [Mass/Vol]3.1 g/dLLow3.2 - 5.2 g/dLOhioHealthAnion gap [Moles/Vol]15 mmol/L10 - 20 mmol/LOhioHealthCalcium [Mass/Vol]8.7 mg/dL8.4 - 10.2 mg/dLOhioHealthChloride [Moles/Vol]102 mmol/L98 - 108 mmol/LOhioHealthCreatinine [Mass/Vol]1.68 mg/dLHigh0.40 - 1.10 mg/dL OhioHealthGFR/1.73 sq M.predicted CKD-EPI (S/P/Bld) [Vol rate/Area]38Low- PINF [facility] on above:Estimated GFR was calculated using the 2020 CKD-EPI creatinine equation.Glucose [Mass/Vol]408 mg/dLCritically high65 - 99 mg/dL OhioHealthHCO3 [Moles/Vol]24 mmol/L21 - 32 mmol/LOhioHealthInterpretation and review of laboratory resultsAbnormalOhioHealthPhosphate [Mass/Vol]3.8 mg/dL2.7 - 4.5 mg/dLOhioHealthPotassium [Moles/Vol]4.5 mmol/L3.5 - 5.1 mmol/LOhioHealth Sodium [Moles/Vol]136 mmol/L135 - 145 mmol/LOhioHealthUrea nitrogen [Mass/Vol]27 mg/dLHigh8 - 25 mg/dLOhioHealthUrea nitrogen/Creatinine [Mass ratio]16.1 mg/mg 10.0 - 20.0[facility] has implemented the eGFR calculation approach that does not have a coefficient for race that conforms to the NKF-ASN Task Force Recommendations.[facility] [id number] NRBC0.0 %NormalSelect Specialty Hospital - Beech GroveComment on above:Performed By: #### [id number] #### LAB [address] [address] Abbi Choudhary M.D. 36D0 [id number] NRBC ABS COUNT0.00 K/mcLNormal0.00-0.00[facility] Beech GroveComment on above:Performed By: #### [id number] ####[facility] [address] [place] [address] Abbi Choudhary M.D. [id number] distribution width (RBC) [Ratio] 13.0 %Noavyk60.6-14.8[facility] - Beech GroveComment on above:Performed By: #### [id number] ####[facility] [address] [place] [address] Abbi Choudhary M.D. [id number] (Bld) [Volume fraction]33.0 %Low36.0-46.0[facility] Beech GroveComment on above:Performed By: #### [id number] ####[facility] [address] [place] [address] Abbi Choudhary M.D. [id number] (Bld) [Mass/Vol] 11.3 g/dLLow12.0-16.0[facility] Beech GroveComment on above:Performed By: #### [id number] ####[facility] [address] [place] [address] Abbi Choudhary M.D. [id number] (RBC) [Entitic mass]31.1 nnGwveaq02.0-34.0[facility] Comment on above:Performed By: #### [id number] ####[facility] [address] [address] Abbi Choudhary M.D. [id number] (RBC) [Entitic vol]90.9 fLNormal 80.0-100.0[facility] - Beech GroveComment on above:Performed By: #### [id number] #### LAB [address] [address] Abbi Choudhary M.D. 36D0 [id number] CORPUSCULAR HEMOGLOBIN CONC34.2 g/cFKobodp79.0-37.0[facility] Beech GroveComment on above:Performed By: #### [id number] ####[facility] [address] [address] Abbi Choudhary M.D. [id number] mean volume (Bld) [Entitic vol]9.6 fLNormal9.4-12.4[facility] Beech GroveComment on above: Performed By: #### [id number] ####[facility] [address] [address] Abbi Choudhary M.D. [id number] (Bld) [#/Vol]287 10*3/lRTuozne323-005AgvhtfSelect Specialty Hospital - Beech GroveComment on above:Performed By: #### [id number] ####[facility] [address] [address] Abbi Choudhary M.D. [id number] (Bld) [#/Vol]3.63 10*6/uLLow4.00-5.20[facility] Beech GroveComment on above:Performed By: #### [id number] ####[facility] [address] [address] Abbi Choudhary M.D. [id number] (Bld) [#/Vol]9.85 10*3/uLNormal4.50-11.00[facility] Beech GroveComment on above:Performed By: #### [id number] ####[facility] [address] [address] Abbi Choudhary M.D. [id number] panel Auto (Bld)on 66-01-3985Frgkufkirbd distribution width (RBC) [Entitic vol]13 %11.6 - 14.8 % LouisianaHealthHematocrit (Bld) [Volume fraction]33 %Low36.0 - 46.0 %[facility] Hemoglobin (Bld) [Mass/Vol]11.3 g/dLLow12.0 - 16.0 g/dLOhioHealthInterpretation and review of laboratory resultsAbnormalOhioHealthMCH (RBC) [Entitic mass]31.1 pg26.0 - 34.0 pgOhioHealthMCHC (RBC) [Mass/Vol]34.2 g/dL31.0 - 37.0 g/dL [facility]bleMCV (RBC) [Entitic vol]90.9 fL80.0 - 100.0 fLOhioHealthNucleated RBC (Bld) [#/Vol]0 10*3/uLOhioHealthNucleated RBC/100 WBC (Bld) [Ratio]0 %[facility] Platelet mean volume (Bld) [Entitic vol]9.6 fL9.4 - 12.4 fLOhioHealthPlatelets (Bld) [#/Vol]287 10*3/uLOhioHealthRBC (Bld) [#/Vol]3.63 10*6/uLLowOhioHealthWBC (Bld) [#/Vol]9.85 10*3/uLOhioHealthOhioHealthCONSULTon 90-65-6464EGENMQZVhhejdAdena Fayette Medical CenterGlucose (Bld) [Mass/Vol]on 87-36-6940Cgqkkuu [Mass/Vol] 241 mg/gOUtgm78 - 99 mg/dLOhioHealthInterpretation and review of laboratory resultsAbnormLancaster Municipal HospitalHealthGlucose [Mass/Vol]191 mg/oCOsyf16 - 99 mg/dL OhioMer[facility] Health [facility] Rita'S Medical CenterInterpretation and review of laboratory resultsAbnormalOhioHealth [facility]bleGlucose [Mass/Vol]184 mg/xNWrdz23 - 99 mg/dLOhioHealthInterpretation and review of laboratory resultsAbnormAdena Health SystemioHealthGlucose [Mass/Vol] 315 mg/aBTcku26 - 99 mg/dLOhioHealthInterpretation and review of laboratory resultsAbnormalOhioHealthOhioHealthGlucose [Mass/Vol]355 mg/oQGelg19 - 99 mg/dL OhioHealthInterpretation and review of laboratory resultsAbnormalOhioHealth OhioHealthGlucose [Mass/Vol]336 mg/dTXqrb35 - 99 mg/dLOhioHealthInterpretation and review of laboratory resultsAbnormalOhioHealthOhioHealthGold Topon 52-97-2100Xfjkg TubeHold for add-ons.OhioHealthComment on above:Auto resulted. [facility] GLUCOSE - RALSon 28-66-8754Wlvklzy [Mass/Vol]241 mg/gIXqtp33-74 [facility] Beech GroveComment on above:Performed By: #### [id number] ####[facility] [address] [place], [place] [address] Abbi Choudhary M.D. [id number] [Mass/Vol]191 mg/dTSyho40-31DeiliiColumbus Regional HealthComment on above:Performed By: #### [id number] ####[facility] [address] [place], [place] [address] Abbi Choudhary M.D. [id number] [Mass/Vol]184 mg/sGPsnc03-22Vpoatt[address] Comment on above:Performed By: #### [id number] ####[facility] [address] [place], [place] [address] Abbi Choudhary M.D. [id number] [Mass/Vol]315 mg/hKCizc19-[address] [place], [place] [address]Comment on above:Performed By: #### [id number] ####[facility] [address] [place], [place] [address] Abbi Choudhary M.D. [id number] [Mass/Vol]355 mg/lAGqbe35-37CbhxqdColumbus Regional HealthComment on above:Performed By: #### [id number] ####[facility] [address] [place], [place] [address] Abbi Choudhary M.D. [id number] [Mass/Vol]336 mg/jDCuxq72-51Ivdlea[address] Comment on above:Performed By: #### [id number] ####[facility] [address] [place], [place] [address] Abbi Choudhary M.D. [id number] FUNCTION PANELon 04-27-2024 Albumin [Mass/Vol]3.7 g/dLNormal3.2-5.2MRiley Hospital for Children on above: Order Comment: [facility] has implemented the eGFR calculation approach that does not have a coefficient for race that conforms to the NKF-ASN Task Force Recommendations.Performed By: #### [id number] ####[facility] [address] [place], [place] [address] Abbi Choudhary M.D. [id number] gap [Moles/Vol]17 mmol/MDuapqi42-73YcidckMargaret Mary Community Hospital on above:Order Comment: [facility] has implemented the eGFR calculation approach that does not have a coefficient for race that conforms to the NKF-ASN Task Force Recommendations.Performed By: #### [id number] ####[facility] [address] [address] Abbi Choudhary M.D. [id number] [Mass/Vol]8.7 mg/dLNormal8.4-10.2MRiley Hospital for Children on above:Order Comment: [facility] has implemented the eGFR calculation approach that does not have a coefficient for race that conforms to the NKF-ASN Task Force Recommendations.Performed By: #### [id number] ####[facility] [address] [address] Abbi Choudhary M.D. [id number] [Moles/Vol]99 mmol/L Xyiobh82-375CasgriMargaret Mary Community Hospital on above:Order Comment: [facility] has implemented the eGFR calculation approach that does not have a coefficient for race that conforms to the NKF-ASN Task Force Recommendations.Performed By: #### [id number] ####[facility] [address] [place], [place] [address] Abbi Choudhary M.D. [id number] [Mass/Vol]1.34 mg/dLHigh 0.40-1.10[facility] on above:Order Comment: [facility] has implemented the eGFR calculation approach that does not have a coefficient for race that conforms to the NKF-ASN Task Force Recommendations.Performed By: #### [id number] ####[facility] [address] [address] Abbi Choudhary M.D. [id number] mL/min/1.73 m2Low>=60[facility] on above:Order Comment: [facility] has implemented the eGFR calculation approach that does not have a coefficient for race that conforms to the NKF-ASN Task Force Recommendations.Result Comment: Estimated GFR was calculated using the 2020 CKD-EPI creatinine equation. Performed By: #### [id number] ####[facility] [address] [address] Abbi Choudhary M.D. [id number] [Mass/Vol]361 mg/yYAbrh62-06AxgiovRiley Hospital for Children on above:Order Comment: [facility] has implemented the eGFR calculation approach that does not have a coefficient for race that conforms to the NKF-ASN Task Force Recommendations.Performed By: #### [id number] ####[facility] [address] [address] Abbi Choudhary M.D. [id number] (Bld) [Moles/Vol]23 mmol/NTzhqsc04-41WshxerSelect Specialty Hospital - Beech Grove Comment on above:Order Comment: [facility] has implemented the eGFR calculation approach that does not have a coefficient for race that conforms to the NKF-ASN Task Force Recommendations.Performed By: #### [id number] ####[facility] [address] [place], [place] [address] Abbi Choudhary M.D. 36D0 [id number] [Mass/Vol]2.4 mg/dLLow2.7-4.5[facility] on above:Order Comment: [facility] has implemented the eGFR calculation approach that does not have a coefficient for race that conforms to the NKF-ASN Task Force Recommendations.Performed By: #### [id number] ####[facility] [address] [address] Abbi Choudhary M.D. [id number] [Moles/Vol]4.3 mmol/LNormal3.5-5.1MRiley Hospital for Children on above:Order Comment: [facility] has implemented the eGFR calculation approach that does not have a coefficient for race that conforms to the NKF-ASN Task Force Recommendations.Performed By: #### [id number] ####[facility] [address] [address] Abbi Choudhary M.D. [id number] [Moles/Vol]135 mmol/QCdruku111-426MuirqmMargaret Mary Community Hospital on above:Order Comment: [facility] has implemented the eGFR calculation approach that does not have a coefficient for race that conforms to the NKF-ASN Task Force Recommendations.Performed By: #### [id number] ####[facility] [address] [address] Abbi Choudhary M.D. [id number] nitrogen [Mass/Vol]26 mg/dLHigh8-25[facility] on above:Order Comment: [facility] has implemented the eGFR calculation approach that does not have a coefficient for race that conforms to the NKF-ASN Task Force Recommendations.Performed By: #### [id number] ####[facility] [address] [address] Abbi Choudhary M.D. [id number] nitrogen/Creatinine [Mass ratio]19.4 mg/kqTpiphw30.0-20.0[facility] on above:Order Comment: [facility] has implemented the eGFR calculation approach that does not have a coefficient for race that conforms to the NKF-ASN Task Force Recommendations.Performed By: #### [id number] ####[facility] [address] [address] Abbi Choudhary M.D. [id number] function 2000 panel on 77-36-0294Pscoonm [Mass/Vol]3.7 g/dL3.2 - 5.2 g/dLOhioHealthAnion gap [Moles/Vol]17 mmol/L10 - 20 mmol/LOhioHealthCalcium [Mass/Vol]8.7 mg/dL8.4 - 10.2 mg/dLOhioHealthChloride [Moles/Vol]99 mmol/L98 - 108 mmol/LOhioHealth Creatinine [Mass/Vol]1.34 mg/dLHigh0.40 - 1.10 mg/dLOhioHealthGFR/1.73 sq M.predicted CKD-EPI (S/P/Bld) [Vol rate/Area]49Low- PINFOhioHealthComment on above:Estimated GFR was calculated using the 2020 CKD-EPI creatinine equation. Glucose [Mass/Vol]361 mg/fNIagk57 - 99 mg/dLOhioHealthHCO3 [Moles/Vol]23 mmol/L 21 - 32 mmol/LOhioHealthInterpretation and review of laboratory resultsAbnormal [facility] PreblePhosphate [Mass/Vol]2.4 mg/dLLow2.7 - 4.5 mg/dLOhioHealthPotassium [Moles/Vol]4.3 mmol/L3.5 - 5.1 mmol/LOhioHealthSodium [Moles/Vol]135 mmol/L135 - 145 mmol/LOhioHealthUrea nitrogen [Mass/Vol]26 mg/dLHigh8 - 25 mg/dLOhioHealth Urea nitrogen/Creatinine [Mass ratio]19.4 mg/mg10.0 - 20.0[facility] has implemented the eGFR calculation approach that does not have a coefficient for race that conforms to the NKF-ASN Task Force Recommendations.[facility] DaytonBASIC METABOLIC PANELon 84-48-0006Itnmb gap [Moles/Vol]19 mmol/LRwukoe59-79ToccixSelect Specialty Hospital - Beech GroveComment on above:Order Comment: [facility] has implemented the eGFR calculation approach that does not have a coefficient for race that conforms to the NKF-ASN Task Force Recommendations.Performed By: #### [id number] ####[facility] [address] [address] Abbi Choudhary M.D. [id number] [Mass/Vol]8.9 mg/dLNormal8.4-10.2MColumbus Regional HealthComascension standish hospital on above:Order Comment: [facility] has implemented the eGFR calculation approach that does not have a coefficient for race that conforms to the NKF-ASN Task Force Recommendations.Performed By: #### [id number] ####[facility] [address] [place], [place] [address] Abbi Choudhary M.D. [id number] [Moles/Vol]99 mmol/L Tpihuk56-918AgdjouMargaret Mary Community Hospital on above:Order Comment: [facility] has implemented the eGFR calculation approach that does not have a coefficient for race that conforms to the NKF-ASN Task Force Recommendations.Performed By: #### [id number] ####[facility] [address] [address] Abbi Choudhary M.D. [id number] [Mass/Vol]1.66 mg/dLHigh 0.40-1.10[facility] on above:Order Comment: [facility] has implemented the eGFR calculation approach that does not have a coefficient for race that conforms to the NKF-ASN Task Force Recommendations.Performed By: #### [id number] ####[facility] [address] [address] Abbi Choudhary M.D. [id number] mL/min/1.73 m2Low>=60[facility] on above:Order Comment: [facility] has implemented the eGFR calculation approach that does not have a coefficient for race that conforms to the NKF-ASN Task Force Recommendations.Result Comment: Estimated GFR was calculated using the 2020 CKD-EPI creatinine equation. Performed By: #### [id number] ####[facility] [address] [address] Abbi Choudhary M.D. [id number] [Mass/Vol]293 mg/aZCxgt14-97BbmowoColumbus Regional HealthComascension standish hospital on above:Order Comment: [facility] has implemented the eGFR calculation approach that does not have a coefficient for race that conforms to the NKF-ASN Task Force Recommendations.Performed By: #### [id number] ####[facility] [address] [address] Abbi Choudhary M.D. [id number] (Bld) [Moles/Vol]24 mmol/EEjzjun54-41QskprnSelect Specialty Hospital - Beech Grove Comment on above:Order Comment: [facility] has implemented the eGFR calculation approach that does not have a coefficient for race that conforms to the NKF-ASN Task Force Recommendations.Performed By: #### [id number] #### LAB [address] [address] Abbi Choudhary M.D. 36D0 225858Sbyvpieem [Moles/Vol]4.3 mmol/LNormal3.5-5.1MRiley Hospital for Children on above:Order Comment: [facility] has implemented the eGFR calculation approach that does not have a coefficient for race that conforms to the NKF-ASN Task Force Recommendations.Performed By: #### [id number] #### LAB [address] [address] Abbi Choudhary M.D. [id number] [Moles/Vol]138 mmol/JScgcxr083-415HtciaxMargaret Mary Community Hospital on above:Order Comment: [facility] has implemented the eGFR calculation approach that does not have a coefficient for race that conforms to the NKF-ASN Task Force Recommendations.Performed By: #### [id number] ####[facility] [address] [address] Abbi Choudhary M.D. [id number] nitrogen [Mass/Vol] 30 mg/dLHigh8-25[facility] on above:Order Comment: [facility] has implemented the eGFR calculation approach that does not have a coefficient for race that conforms to the NKF-ASN Task Force Recommendations.Performed By: #### [id number] ####[facility] [address] [address] Abbi Choudhary M.D. [id number] nitrogen/Creatinine [Mass ratio]18.1 mg/dqZjnxpp42.0-20.0[facility] on above:Order Comment: [facility] has implemented the eGFR calculation approach that does not have a coefficient for race that conforms to the NKF-ASN Task Force Recommendations.Performed By: #### [id number] ####[facility] [address] [address] Abbi Choudhary M.D. [id number] metabolic 2000 panelon 61-07-7667Bzvbg gap [Moles/Vol]19 mmol/L10 - 20 mmol/LOhioHealthCalcium [Mass/Vol]8.9 mg/dL8.4 - 10.2 mg/dLOhioHealthChloride [Moles/Vol]99 mmol/L98 - 108 mmol/LOhioHealthCreatinine [Mass/Vol]1.66 mg/dLHigh0.40 - 1.10 mg/dL OhioHealthGFR/1.73 sq M.predicted CKD-EPI (S/P/Bld) [Vol rate/Area]38Low- PINF [facility] PrebleComment on above:Estimated GFR was calculated using the 2020 CKD-EPI creatinine equation.Glucose [Mass/Vol]293 mg/tPIfav32 - 99 mg/dLOhioHealthHCO3 [Moles/Vol]24 mmol/L21 - 32 mmol/LOhioHealthPotassium [Moles/Vol]4.3 mmol/L3.5 - 5.1 mmol/LOhioHealthSodium [Moles/Vol]138 mmol/L135 - 145 mmol/LOhioHealthUrea nitrogen [Mass/Vol]30 mg/dLHigh8 - 25 mg/dLOhioHealthUrea nitrogen/Creatinine [Mass ratio]18.1 mg/mg10.0 - 20.0OhioKettering Health TroyioHealth [facility] has implemented the eGFR calculation approach that does not have a coefficient for race that conforms to the NKF-ASN Task Force Recommendations.[facility] Auto Differentialon 36-12-3496Uhrodorgu (Bld) [#/Vol]0.05 10*3/uLOhioHealth Basophils/100 WBC (Bld)0.5 %OhioHealthEosinophils (Bld) [#/Vol]0.18 10*3/uL OhioHealthEosinophils/100 WBC (Bld)1.7 %[facility] PrebleErythrocyte distribution width (RBC) [Entitic vol]13.2 %11.6 - 14.8 %OhioHealthHematocrit (Bld) [Volume fraction]34.9 %Low36.0 - 46.0 %OhioHealthHemoglobin (Bld) [Mass/Vol]11.9 g/dLLow 12.0 - 16.0 g/dLOhioHealthImmature granulocytes (Bld) [#/Vol]0.09 10*3/uL OhioHealthImmature granulocytes/100 WBC (Bld)0.9 %OhioHealthComment on above:The IG parameter is the percentage of metamyelocytes, myelocytes and promyelocytes. An immature granulocyte count (IG) of 1% or more suggests the possibility of infection, an IG count of 3% is very likely related to an infection. Interpretation and review of laboratory resultsAbnormalOhioHealthLymphocytes (Bld) [#/Vol]1.6 10*3/uLOhioHealthLymphocytes/100 WBC (Bld)15.3 %OhioHealthMCH (RBC) [Entitic mass]31.2 pg26.0 - 34.0 pgOhioHealthMCHC (RBC) [Mass/Vol]34.1 g/dL31.0 - 37.0 g/dLOhioHealthMCV (RBC) [Entitic vol]91.4 fL80.0 - 100.0 fL OhioHealthMonocytes (Bld) [#/Vol]0.5 10*3/uLOhioHealthMonocytes/100 WBC (Bld)4.8 %OhioHealthNeutrophils (Bld) [#/Vol]8.04 10*3/uLHighOhioHealthNeutrophils/100 WBC (Bld)76.8 %OhioHealthNucleated RBC (Bld) [#/Vol]0 10*3/uLOhioHealthNucleated RBC/100 WBC (Bld) [Ratio]0 %OhioHealthPlatelet mean volume (Bld) [Entitic vol] 9.8 fL9.4 - 12.4 fLOhioHealthPlatelets (Bld) [#/Vol]294 10*3/uLOhioHealthRBC (Bld) [#/Vol]3.82 10*6/uLLowOhioHealthWBC (Bld) [#/Vol]10.46 10*3/uLOhioHealth OhioHealthCBC WITH AUTO DIFFERENTIALon 72-51-2970ZCOD NRBC0.0 %[facility] HospitalComment on above:Performed By: #### [id number] ####[facility] [address] [address] Abbi Choudhary M.D. [id number] NRBC ABS COUNT0.00 K/mcLNormal0.00-0.00[facility] Beech GroveComment on above:Performed By: #### [id number] ####[facility] [address] [address] Abbi Choudhary M.D. [id number] ABSOLUTE COUNT0.05 K/mcLNormal0.00-0.30[facility] HospitalComment on above:Performed By: #### [id number] ####[facility] [address] [address] Abbi Choudhary M.D. [id number]/100 WBC (Bld)0.5 %NormalSelect Specialty Hospital - Beech GroveComment on above:Performed By: #### [id number] ####[facility] [address] [address] Abbi Choudhary M.D. [id number] (Bld) [#/Vol]0.18 10*3/uLNormal0.00-0.50[facility] Bee[facility] GroveComment on above:Performed By: #### [id number] ####[facility] [address] [address] Abbi Choudhary M.D. [id number]/100 WBC (Bld) 1.7 %NormalSelect Specialty Hospital - Beech GroveComment on above:Performed By: #### [id number] ####[facility] [address] [address] Abbi Choudhary M.D. [id number] distribution width (RBC) [Ratio]13.2 %Zueffi18.6-14.8[facility] HospitalComment on above:Performed By: #### [id number] ####[facility] [address] [address] Abbi Choudhary M.D. [id number] (Bld) [Volume fraction]34.9 %Low36.0-46.0[facility] HospitalComment on above: Performed By: #### [id number] ####[facility] [address] [address] Abbi Choudhary M.D. [id number] (Bld) [Mass/Vol]11.9 g/dLLow12.0-16.0 [facility] Bee[facility] GroveComment on above:Performed By: #### [id number] ####[facility] [address] [address] Abbi Choudhary M.D. [id number] ABSOLUTE 0.09 K/mcLNormal0.00-0.30[facility] Beech GroveComment on above:Performed By: #### [id number] ####[facility] [address] [address] Abbi Choudhary M.D. [id number] PERCENT0.90 %[facility] HospitalComment on above: Result Comment: The IG parameter is the percentage of metamyelocytes, myelocytes and promyelocytes.An immature granulocyte count (IG) of 1% or more suggests the possibility of infection, an IG countof 3% is very likely related to an infection.Performed By: #### [id number] ####[facility] [address] [address] Abbi Choudhary M.D. [id number] (Bld) [#/Vol]1.60 10*3/uLNormal0.90-4.00[facility] Bee[facility] GroveComment on above:Performed By: #### [id number] ####[facility] [address] [address] Abbi Choudhary M.D. [id number]/100 WBC (Bld)15.3 %[facility] HospitalComment on above:Performed By: #### [id number] ####[facility] [address] [address] Abbi Choudhary M.D. [id number] (RBC) [Entitic mass]31.2 pgNormal 26.0-34.0[facility] Beech GroveComment on above:Performed By: #### [id number] ####[facility] [address] [address] Abbi Choudhary M.D. 36 [id number] (RBC) [Entitic vol]91.4 rHMgvwgh46.0-100.0[facility] Comment on above:Performed By: #### [id number] ####[facility] [address] [address] Abbi Choudhary M.D. [id number] CORPUSCULAR HEMOGLOBIN CONC34.1 g/rMQchkud09.0-37.0[facility] Beech GroveComment on above:Performed By: #### [id number] ####[facility] [address] [address] Abbi Choudhary M.D. [id number] (Bld) [#/Vol]0.50 10*3/uLNormal0.30-0.90[facility] Bee[facility] GroveComment on above:Performed By: #### [id number] ####[facility] [address] [address] Abbi Choudhary M.D. [id number]/100 WBC (Bld) 4.8 %NormalSelect Specialty Hospital - Beech GroveComment on above:Performed By: #### [id number] ####[facility] [address] [address] Abbi Choudhary M.D. 36 [id number] ABSOLUTE COUNT8.04 K/mcLHigh1.70-7.00[facility] Comment on above:Performed By: #### [id number] ####[facility] [address] [address] Abbi Choudhary M.D. [id number]/100 WBC (Bld)76.8 % [facility] HospitalComment on above:Performed By: #### [id number] ####[facility] [address] [address] Abbi Choudhary M.D. [id number] Platelet mean volume (Bld) [Entitic vol]9.8 fLNormal9.4-12.4[facility] - Beech GroveComment on above:Performed By: #### [id number] ####[facility] [address] [place], [place] [address] Abbi Choudhary M.D. [id number] (Bld) [#/Vol] 294 10*3/iAScpseu648-169XwdhypSelect Specialty Hospital - Beech GroveComment on above:Performed By: #### [id number] ####[facility] [address] [place], [place] [address] Abbi Choudhary M.D. [id number] (Bld) [#/Vol]3.82 10*6/uLLow4.00-5.20[facility] Comment on above:Performed By: #### [id number] ####[facility] [address] [place], [place] [address] Abbi Choudhary M.D. [id number] (Bld) [#/Vol]10.46 10*3/uL Normal4.50-11.00[facility] GroveComment on above:Performed By: #### [id number] ####[facility] [address] [place], [place] [address] Abbi Choudhary M.D. [id number], INFLAMMATIONon 74-37-7587PHI [Mass/Vol]91.8 mg/LHigh0.0-10.0 [facility] GroveComment on above:Performed By: #### [id number] ####[facility] [address] [place], [place] [address] Abbi Choudhary M.D. [id number], Inflammationon 59-39-5168GCR [Mass/Vol]91.8 mg/LHigh0.0 - 10.0 mg/LOhioHealth Dark Green TopOrdered By: Sandra Aguilar on 43-14-5113Duaps TubenOhioHealEast [place] Regional HospitalED Prov Noteon 80-08-8120FH Prov NoteNormSt. Vincent Mercy HospitalESR Westergren method (Bld) [Velocity]on 01-03-8065OLD (Bld) [Velocity]58 mm/hHigh [facility] PrebleInterpretation and review of laboratory resultsAbnormalOhiMDealth [facility] AND Paulino 04-26-2024H AND PNormalSelect Specialty Hospital - [facility] GroveNo Panel Informationon 63-44-8239Bzasj TubeHold for add-ons.OhioHealthComment on above: Auto resulted.OhioHealthInterpretation and review of laboratory resultsAbnormal OhioHealthOhioHealthSEDIMENTATION RATEon 38-63-7736BMBNUBXMONTBO RATE, PZKVCSQDYMA85 mm/hrHigh0-20[facility] GroveComment on above:Performed By: #### [id number] ####[facility] [address] [address] Abbi Choudhary M.D. [id number] FOOT LEFT 3+ VIEWS (STANDARD)on 62-78-3576QO FOOT LEFT 3+ VIEWS (STANDARD)[facility] HospitalComment on above:Order Comment: Injury/Trauma or Illness?:Illness/OtherPatient arrives with EMS ([facility]). She ambulated off of EMS cot [...] symptoms (acute/chronic)?:AcuteReason for exam?:Patient arrives with EMS ([facility]). She ambulated offof EMS cot with assistance to bed. Per [...] Exam?:InitialAdditional signs and symptoms?:Patient arrives with EMS ([facility]). She ambulated off of EMS cot with assistance to bed. 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 Patient states that she has been on antibiotics since surgery but does not know the name of what she has been taking. She sta rodríguez her dressing was changed 2 days ago. She reports redness, pain and clear drainage.XR Foot - left 3 Viewson 22-49-5851WSSRGSKV/ 1. Prior amputation of the 1st distal [...] acute bony abnormality is seen. Workstation ID: [id number] RISEXAMINATION: XR FOOT LEFT 3+ VIEWS (STANDARD) 04/26/2024 8:26 pm HISTORY: ORDERING SYSTEM PROVIDED HISTORY: post op eval, TECHNOLOGIST PROVIDED HISTORY: Illness/Other Reason for exam: Patient arrives with EMS ([facility]). She ambulated off of EMS cot [...] signs and symptoms: Patient arrives with EMS ([facility]). She ambulated off of EMS cotwith assistance to bed. 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 Patient states that she has been on antibiotics since surgery but do es not know the name of what she has been taking. She states her dressing was changed 2 days ago. She reports redness, pain and clear drainage. ORDERING SYSTEM PROVIDED DIAGNOSIS CODES: COMPARISON: 04/01/2024. Agustin Bennett MD - 04/26/2024 EXAMINATION: XR FOOT LEFT 3+ VIEWS (STANDARD) 04/26/2024 8:26 pm HISTORY: ORDERING SYSTEM PROVIDED HISTORY: post op eval, TECHNOLOGIST PROVIDED HISTORY: Illness/Other Reason for exam: Patient arrives with EMS ([facility]). She ambulated off of EMS cot [...] signs and symptoms: Patient arrives with EMS ([facility]). She ambulated off of EMS cotwith assistance to bed. 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 Patient states that she has been on antibiotics since surgery but do es not know the name of what she [...] is seen. Workstation ID: [id number] [facility] PrebleRadiology Study observation (narrative)[facility]bleXR Foot - left 3 ViewsOrdered By: Agustin Andrea on 21-22-6843XpmvBhpyho Work Phone: CBCon [phone] NRBC0.0 %NormalSelect Specialty Hospital - Beech GroveComment on above:Performed By: #### [id number] ####[facility] [address] [place] [address] Abbi Choudhary M.D. [id number] NRBC ABS COUNT0.00 K/mcL Normal0.00-0.00[facility] HospitalComment on above:Performed By: #### [id number] ####[facility] [address] [place] [address] Abbi Choudhary M.D. 36D0 831126Lcevxkfjfwm distribution width (RBC) [Ratio]13.1 %Rgnqhz07.6-14.8[facility] HospitalComment on above:Performed By: #### [id number] ####[facility] [address] [place] [address] Abbi Choudhary M.D. [id number] (Bld) [Volume fraction]26.7 %Low36.0-46.0[facility] GroveComment on above: Performed By: #### [id number] ####[facility] [address] [place] [address] Abbi Choudhary M.D. [id number] (Bld) [Mass/Vol]8.9 g/dLLow12.0-16.0[facility] GroveComment on above:Performed By: #### [id number] ####[facility] [address] [place] [address] Abbi Choudhary M.D. [id number] (RBC) [Entitic mass]31.1 atUbhlsg44.0-34.0[facility] GroveComment on above: Performed By: #### [id number] ####[facility] [address] [place] [address] Abbi Choudhary M.D. [id number] (RBC) [Entitic vol]93.4 kONkofef87.0-100.0[facility] GroveComment on above:Performed By: #### [id number] ####[facility] [address] [place] [address] Abbi Choudhary M.D. [id number] CORPUSCULAR HEMOGLOBIN CONC33.3 g/zPQdodew35.0-37.0[facility] GroveComment on above: Performed By: #### [id number] ####[facility] [address] [place] [address] Abbi Choudhary M.D. [id number] mean volume (Bld) [Entitic vol]9.6 fLNormal 9.4-12.4[facility] GroveComment on above:Performed By: #### [id number] ####[facility] [address] [place] [address] Abbi Choudhary M.D. [id number] Platelets (Bld) [#/Vol]256 10*3/zPIvpiod700-444PagsrfSelect Specialty Hospital - Beech GroveComment on above:Performed By: #### [id number] ####[facility] [address] [place] [address] Abbi Choudhary M.D. [id number] (Bld) [#/Vol]2.86 10*6/uLLow4.00-5.20 [facility] GroveComascension standish hospital on above:Performed By: #### [id number] ####[facility] [address] [place] [address] Abbi Choudhary M.D. [id number] (Bld) [#/Vol]7.11 10*3/uLNormal4.50-11.00[facility] GroveComment on above: Performed By: #### [id number] ####[facility] [address] [place] [address] Abbi Choudhary M.D. [id number] panel Auto (Bld)on 10-94-3921Pjcedwrutgm distribution width (RBC) [Entitic vol]13.1 %11.6 - 14.8 %OhioHealthHematocrit (Bld) [Volume fraction]26.7 %Low36.0 - 46.0 %OhioHealthHemoglobin (Bld) [Mass/Vol]8.9 g/dLLow12.0 - 16.0 g/dLOhioHealthInterpretation and review of laboratory resultsAbnormalOhioHealthMCH (RBC) [Entitic mass]31.1 pg26.0 - 34.0 pgOhioHealthMCHC (RBC) [Mass/Vol]33.3 g/dL31.0 - 37.0 g/dLOhioHealthMCV (RBC) [Entitic vol]93.4 fL80.0 - 100.0 fLOhioHealthNucleated RBC (Bld) [#/Vol]0 10*3/uLOhioHealthNucleated RBC/100 WBC (Bld) [Ratio]0 %OhioHealthPlatelet mean volume (Bld) [Entitic vol]9.6 fL9.4 - 12.4 fLOhioHealthPlatelets (Bld) [#/Vol] 256 10*3/uLOhioHealthRBC (Bld) [#/Vol]2.86 10*6/uLLowOhioHealthWBC (Bld) [#/Vol] 7.11 10*3/uLOhioHealthOhioHealthDisch Summon 58-72-4315Eeywv [facility] Health CrawfordsvilleRENAL FUNCTION PANELon 80-19-0342Ypabjsi [Mass/Vol]3.2 g/dL Normal3.2-5.2MColumbus Regional HealthComascension standish hospital on above:Order Comment: [facility] has implemented the eGFR calculation approach that does not have a coefficient for race that conforms to the NKF-ASN Task Force Recommendations.Performed By: #### [id number] ####[facility] [address] [place] [address] Abbi Choudhary M.D. [id number] gap [Moles/Vol]12 mmol/LNormal -[facility] on above:Order Comment: [facility] has implemented the eGFR calculation approach that does not have a coefficient for race that conforms to the NKF-ASN Task Force Recommendations.Performed By: #### [id number] ####[facility] [address], [place] [address] Abbi Choudhary M.D. [id number] [Mass/Vol]8.4 mg/dLNormal 8.4-10.2MColumbus Regional HealthComascension standish hospital on above:Order Comment: [facility] has implemented the eGFR calculation approach that does not have a coefficient for race that conforms to the NKF-ASN Task Force Recommendations.Performed By: #### [id number] #### [facility] [address] [place], [place] [address] Abbi Choudhary M.D. [id number] [Moles/Vol]105 mmol/LNormal 98-108[facility] GroveComment on above:Order Comment: [facility] has implemented the eGFR calculation approach that does not have a coefficient for race that conforms to the NKF-ASN Task Force Recommendations.Performed By: #### [id number] ####[facility] [address], [place] [address] Abbi Choudhary M.D. [id number] [Mass/Vol]1.34 mg/dLHigh 0.40-1.10[facility] GroveComment on above:Order Comment: [facility] has implemented the eGFR calculation approach that does not have a coefficient for race that conforms to the NKF-ASN Task Force Recommendations.Performed By: #### [id number] ####[facility] [address] [place] [address] Abbi Choudhary M.D. [id number] mL/min/1.73 m2Low>=60[facility] GroveComment on above:Order Comment: [facility] has implemented the eGFR calculation approach that does not have a coefficient for race that conforms to the NKF-ASN Task Force Recommendations.Result Comment: Estimated GFR was calculated using the 2020 CKD-EPI creatinine equation. Performed By: #### [id number] ####[facility] [address] [place], [place] [address] Abbi Choudhary M.D. [id number] [Mass/Vol]245 mg/qQGxeh56-28RzovtpColumbus Regional HealthComascension standish hospital on above:Order Comment: [facility] has implemented the eGFR calculation approach that does not have a coefficient for race that conforms to the NKF-ASN Task Force Recommendations.Performed By: #### [id number] ####[facility] [address], [place] [address] Abbi Choudhary M.D. [id number] (Bld) [Moles/Vol]28 mmol/QWnkvnz92-23TwcenjSelect Specialty Hospital - [facility] Comment on above:Order Comment: [facility] has implemented the eGFR calculation approach that does not have a coefficient for race that conforms to the NKF-ASN Task Force Recommendations.Performed By: #### [id number] ####[facility] [address] [place] [address] Abbi Choudhary M.D. 36D0 122663Ccngkcdnx [Mass/Vol]3.8 mg/dLNormal2.7-4.5[facility] on above:Order Comment: [facility] has implemented the eGFR calculation approach that does not have a coefficient for race that conforms to the NKF-ASN Task Force Recommendations.Performed By: #### [id number] ####[facility] [address] [place] [address] Abbi Choudhary M.D. [id number] [Moles/Vol]4.0 mmol/LNormal3.5-5.1MRiley Hospital for Children on above:Order Comment: [facility] has implemented the eGFR calculation approach that does not have a coefficient for race that conforms to the NKF-ASN Task Force Recommendations.Performed By: #### [id number] ####[facility] [address] [place] [address] Abbi Choudhary M.D. [id number] [Moles/Vol]141 mmol/KTzvscb289-156KcvnapMargaret Mary Community Hospital on above:Order Comment: [facility] has implemented the eGFR calculation approach that does not have a coefficient for race that conforms to the NKF-ASN Task Force Recommendations.Performed By: #### [id number] ####[facility] [address] [place] [address] Abbi Choudhary M.D. [id number] nitrogen [Mass/Vol]20 mg/dLNormal8-25[facility] on above:Order Comment: [facility] has implemented the eGFR calculation approach that does not have a coefficient for race that conforms to the NKF-ASN Task Force Recommendations.Performed By: #### [id number] ####[facility] [address] [place] [address] Abbi Choudhary M.D. [id number] nitrogen/Creatinine [Mass ratio]14.9 mg/oqBaduih37.0-20.0[facility] on above:Order Comment: [facility] has implemented the eGFR calculation approach that does not have a coefficient for race that conforms to the NKF-ASN Task Force Recommendations.Performed By: #### [id number] ####[facility] [address] [place] [address] Abbi Choudhary M.D. [id number] function 2000 panel on 69-18-4278Onvsrao [Mass/Vol]3.2 g/dL3.2 - 5.2 g/dLOhioHealthAnion gap [Moles/Vol]12 mmol/L10 - 20 mmol/LOhioHealthCalcium [Mass/Vol]8.4 mg/dL8.4 - 10.2 mg/dLOhioHealthChloride [Moles/Vol]105 mmol/L98 - 108 mmol/LOhioHealth Creatinine [Mass/Vol]1.34 mg/dLHigh0.40 - 1.10 mg/dLOhioHealthGFR/1.73 sq M.predicted CKD-EPI (S/P/Bld) [Vol rate/Area]50Low- PINFOhioHealthGlucose [Mass/Vol]245 mg/lGBzyh54 - 99 mg/dLOhioHealthHCO3 [Moles/Vol]28 mmol/L21 - 32 mmol/LOhioHealthInterpretation and review of laboratory resultsAbnormal OhioHealthPhosphate [Mass/Vol]3.8 mg/dL2.7 - 4.5 mg/dLOhioHealthPotassium [Moles/Vol]4 mmol/L3.5 - 5.1 mmol/LOhioHealthSodium [Moles/Vol]141 mmol/L135 - 145 mmol/LOhioHealthUrea nitrogen [Mass/Vol]20 mg/dL8 - 25 mg/dLOhioHealthUrea nitrogen/Creatinine [Mass ratio]14.9 mg/mg10.0 - 20.0OhioHealthOhioHealth [facility]bleSurgical Site Aerobic CultureOrdered By: Maria T Matamoros on 04-04-2024 Bacteria identified Aer cx Nom (Unsp spec)Rare growth Staphylococcus epidermidis AbnormalOhioHealthInterpretation and review of laboratory resultsAbnormal OhioHealthMicroscopic observation Gram stain Nom (Unsp spec)Many WBCOhioHealth Microscopic observation Gram stain Nom (Unsp spec)Many RBCOhioHealthMicroscopic observation Gram stain Nom (Unsp spec)No Organisms SeenOhioHealthOhioHealthCBCon 74-52-1801IECM NRBC0.0 %NormalSelect Specialty Hospital - Beech GroveComment on above:Performed By: #### [id number] ####[facility] [address] [place] [address] Abbi Choudhary M.D. [id number] NRBC ABS COUNT0.00 K/mcLNormal0.00-0.00[facility] GroveComment on above:Performed By: #### [id number] ####[facility] [address] [place] [address] Abbi Choudhary M.D. [id number] distribution width (RBC) [Ratio]13.5 %Atkztk66.6-14.8[facility] GroveComment on above: Performed By: #### [id number] #### [facility] [address] [place] [address] Abbi Choudhary M.D. [id number] (Bld) [Volume fraction]26.8 %Low36.0-46.0 [facility] GroveComment on above:Performed By: #### [id number] #### [facility] [address] [place] [address] Abbi Choudhary M.D. [id number] (Bld) [Mass/Vol]8.8 g/dLLow12.0-16.0[facility] GroveComment on above: Performed By: #### [id number] ####[facility] [address] [place] [address] Abbi Choudhary M.D. [id number] (RBC) [Entitic mass]31.1 fzJchpun27.0-34.0[facility] GroveComment on above:Performed By: #### [id number] #### [facility] [address] [place] [address] Abbi Choudhary M.D. [id number] (RBC) [Entitic vol]94.7 gKKqblvo98.0-100.0[facility] GroveComment on above: Performed By: #### [id number] ####[facility] [address] [place] [address] Abbi Choudhary M.D. [id number] CORPUSCULAR HEMOGLOBIN CONC32.8 g/dLNormal 31.0-37.0[facility] GroveComment on above:Performed By: #### [id number] ####[facility] [address] [place] [address] Abbi Choudhary M.D. 36D0 526667Mbjainsm mean volume (Bld) [Entitic vol]9.5 fLNormal9.4-12.4[facility] GroveComment on above:Performed By: #### [id number] ####[facility] [address] [place] [address] Abbi Choudhary M.D. [id number] (Bld) [#/Vol]277 10*3/zJSieogs556-949LzznieSelect Specialty Hospital - Beech GroveComment on above:Performed By: #### [id number] ####[facility] [address] [place] [address] Abbi Choudhary M.D. [id number] (Bld) [#/Vol]2.83 10*6/uLLow4.00-5.20[facility] Comment on above:Performed By: #### [id number] ####[facility] [address] [address] Abbi Choudhary M.D. [id number] (Bld) [#/Vol]7.63 10*3/uLNormal 4.50-11.00[facility] GroveComment on above:Performed By: #### 46574 ####[facility] [address] [place] [address] Abbi Choudhary M.D. 36D0 [id number] panel Auto (Bld)on 18-31-2978Mkcecpwosed distribution width (RBC) [Entitic vol]13.5 %11.6 - 14.8 %OhioHealthHematocrit (Bld) [Volume fraction]26.8 %Low36.0 - 46.0 %OhioHealthHemoglobin (Bld) [Mass/Vol]8.8 g/dLLow12.0 - 16.0 g/dLOhioHealthInterpretation and review of laboratory resultsAbnormalOhioHealth MCH (RBC) [Entitic mass]31.1 pg26.0 - 34.0 pgOhioHealthMCHC (RBC) [Mass/Vol]32.8 g/dL31.0 - 37.0 g/dLOhioHealthMCV (RBC) [Entitic vol]94.7 fL80.0 - 100.0 fL OhioHealthNucleated RBC (Bld) [#/Vol]0 10*3/uLOhioHealthNucleated RBC/100 WBC (Bld) [Ratio]0 %OhioHealthPlatelet mean volume (Bld) [Entitic vol]9.5 fL9.4 - 12.4 fLOhioHealthPlatelets (Bld) [#/Vol]277 10*3/uLOhioHealthRBC (Bld) [#/Vol] 2.83 10*6/uLLowOhioHealthWBC (Bld) [#/Vol]7.63 10*3/uLOhioHealthOhioHealthRENAL FUNCTION PANELon 99-92-8094Kyzipmv [Mass/Vol]3.2 g/dLNormal3.2-5.2MColumbus Regional HealthComment on above:Order Comment: [facility] has implemented the eGFR calculation approach that does not have a coefficient for race that conforms to the NKF-ASN Task Force Recommendations.Performed By: #### [id number] ####[facility] [address] [place] [address] Abbi Choudhary M.D. [id number] gap [Moles/Vol]11 mmol/HJzbhmr23-40HzyiseSelect Specialty Hospital - [facility] Comment on above:Order Comment: [facility] has implemented the eGFR calculation approach that does not have a coefficient for race that conforms to the NKF-ASN Task Force Recommendations.Performed By: #### [id number] #### [facility] [address], [place] [address] Abbi Choudhary M.D. 36D0 460554Pwqgvzh [Mass/Vol]8.2 mg/dLLow8.4-10.2[facility] HospitalComment on above:Order Comment: [facility] has implemented the eGFR calculation approach that does not have a coefficient for race that conforms to the NKF-ASN Task Force Recommendations.Performed By: #### [id number] ####[facility] [address], [place] [address] Abbi Choudhary M.D. [id number] [Moles/Vol]106 mmol/OXtmnfb34-927LriocxMargaret Mary Community Hospital on above:Order Comment: [facility] has implemented the eGFR calculation approach that does not have a coefficient for race that conforms to the NKF-ASN Task Force Recommendations.Performed By: #### [id number] ####[facility] [address] [place], [place] [address] Abbi Choudhary M.D. [id number] [Mass/Vol]1.65 mg/dLHigh0.40-1.10[facility] on above:Order Comment: [facility] has implemented the eGFR calculation approach that does not have a coefficient for race that conforms to the NKF-ASN Task Force Recommendations.Performed By: #### [id number] ####[facility] [address] [place], [place] [address] Abbi Choudhary M.D. [id number] mL/min/1.73 m2Low>=60 [facility] on above:Order Comment: [facility] has implemented the eGFR calculation approach that does not have a coefficient for race that conforms to the NKF-ASN Task Force Recommendations. Result Comment: Estimated GFR was calculated using the 2020 CKD-EPI creatinine equation.Performed By: #### [id number] ####[facility] [address] [place], [place] [address] Abbi Choudhary M.D. [id number] [Mass/Vol]206 mg/nPQthd76-31UguytcRiley Hospital for Children on above:Order Comment: [facility] has implemented the eGFR calculation approach that does not have a coefficient for race that conforms to the NKF-ASN Task Force Recommendations.Performed By: #### [id number] ####[facility] [address] [place], [place] [address] Abbi Choudhary M.D. [id number] (Bld) [Moles/Vol]28 mmol/EIlgekl96-74FpoxfmSelect Specialty Hospital - [facility] Comment on above:Order Comment: [facility] has implemented the eGFR calculation approach that does not have a coefficient for race that conforms to the NKF-ASN Task Force Recommendations.Performed By: #### [id number] ####[facility] [address] [address] Abbi Choudhary M.D. 36D0 383148Ihstjdnuc [Mass/Vol]4.4 mg/dLNormal2.7-4.5[facility] on above:Order Comment: [facility] has implemented the eGFR calculation approach that does not have a coefficient for race that conforms to the NKF-ASN Task Force Recommendations.Performed By: #### [id number] ####[facility] [address] [place] [address] Abbi Choudhary M.D. [id number] [Moles/Vol]3.7 mmol/LNormal3.5-5.1MParkview Regional Medical Centerment on above:Order Comment: [facility] has implemented the eGFR calculation approach that does not have a coefficient for race that conforms to the NKF-ASN Task Force Recommendations.Performed By: #### [id number] ####[facility] [address] [address] Abbi Choudhary M.D. [id number] [Moles/Vol]141 mmol/NPddbvl966-589DxlydbSelect Specialty Hospital - Beech GroveComascension standish hospital on above:Order Comment: [facility] has implemented the eGFR calculation approach that does not have a coefficient for race that conforms to the NKF-ASN Task Force Recommendations.Performed By: #### 14747 ####[facility] [address] [place], [place] [address] Abbi Choudhary M.D. [id number] nitrogen [Mass/Vol]19 mg/dLNormal8-25[facility] on above:Order Comment: [facility] has implemented the eGFR calculation approach that does not have a coefficient for race that conforms to the NKF-ASN Task Force Recommendations.Performed By: #### [id number] ####[facility] [address] [place], [place] [address] Abbi Choudhary M.D. [id number] nitrogen/Creatinine [Mass ratio]11.5 mg/ybHwerbo95.0-20.0[facility] Bee[facility] GroveComment on above:Order Comment: [facility] has implemented the eGFR calculation approach that does not have a coefficient for race that conforms to the NKF-ASN Task Force Recommendations.Performed By: #### [id number] ####[facility] [address] [place], [place] [address] Abbi Choudhary M.D. [id number] function 2000 panel on 70-19-8131Bxsrlka [Mass/Vol]3.2 g/dL3.2 - 5.2 g/dLOhioHealthAnion gap [Moles/Vol]11 mmol/L10 - 20 mmol/LOhioHealthCalcium [Mass/Vol]8.2 mg/dLLow8.4 - 10.2 mg/dLOhioHealthChloride [Moles/Vol]106 mmol/L98 - 108 mmol/LOhioHealth Creatinine [Mass/Vol]1.65 mg/dLHigh0.40 - 1.10 mg/dLOhioHealthGFR/1.73 sq M.predicted CKD-EPI (S/P/Bld) [Vol rate/Area]39Low- PINFOhioHealthGlucose [Mass/Vol]206 mg/yUBovo41 - 99 mg/dLOhioHealthHCO3 [Moles/Vol]28 mmol/L21 - 32 mmol/LOhioHealthInterpretation and review of laboratory resultsAbnormal [facility]blePhosphate [Mass/Vol]4.4 mg/dL2.7 - 4.5 mg/dLOhioHealthPotassium [Moles/Vol]3.7 mmol/L3.5 - 5.1 mmol/LOhioHealthSodium [Moles/Vol]141 mmol/L135 - 145 mmol/LOhioHealthUrea nitrogen [Mass/Vol]19 mg/dL8 - 25 mg/dLOhioHealthUrea nitrogen/Creatinine [Mass ratio]11.5 mg/mg10.0 - 20.0OhioHealthOhioHealth [facility] 28-63-6638SBJZ NRBC0.0 %NormalMarion General HospitalComment on above:Performed By: #### [id number] ####[facility] [address] [place], [place] [address] Abbi Choudhary M.D. [id number] NRBC ABS COUNT0.00 K/mcLNormal0.00-0.00 [facility] GroveComment on above:Performed By: #### [id number] ####[facility] [address] [address] Abbi Choudhary M.D. [id number] distribution width (RBC) [Ratio]13.1 %Vdtvxx54.6-14.8[facility] Comment on above:Performed By: #### [id number] ####[facility] [address] [address] Abbi Choudhary M.D. [id number] (Bld) [Volume fraction] 26.0 %Low36.0-46.0[facility] GroveComment on above:Performed By: #### [id number] ####[facility] [address] [place], [place] [address] Abbi Choudhary M.D. [id number] (Bld) [Mass/Vol]8.9 g/dLLow12.0-16.0[facility] Comment on above:Performed By: #### [id number] ####[facility] [address] [address] Abbi Choudhary M.D. [id number] (RBC) [Entitic mass]31.2 pg Kbyzup46.0-34.0[facility] GroveComment on above:Performed By: #### [id number] ####[facility] [address] [address] Abbi Choudhary M.D. 36D0 [id number] (RBC) [Entitic vol]91.2 rBYdsunc81.0-100.0[facility] Comment on above:Performed By: #### [id number] #### LAB [address] [address] Abbi Choudhary M.D. [id number] CORPUSCULAR HEMOGLOBIN CONC34.2 g/xIZluflq84.0-37.0[facility] GroveComment on above:Performed By: #### [id number] ####[facility] [address] [address] Abbi Choudhary M.D. [id number] mean volume (Bld) [Entitic vol]9.2 fLLow9.4-12.4[facility] GroveComment on above:Performed By: #### [id number] ####[facility] [address] [address] Abbi Choudhary M.D. [id number] (Bld) [#/Vol]277 10*3/uULcacks743-882KihcfgSelect Specialty Hospital - Beech GroveComment on above:Performed By: #### 77071 ####[facility] [address] [address] Abbi Choudhary M.D. [id number] (Bld) [#/Vol]2.85 10*6/uLLow4.00-5.20[facility] GroveComment on above:Performed By: #### [id number] ####[facility] [address] [address] Abbi Choudhary M.D. [id number] (Bld) [#/Vol]7.42 10*3/uL Normal4.50-11.00[facility] GroveComment on above:Performed By: #### [id number] ####[facility] [address] [address] Abbi Choudhary M.D. 36D0 [id number] panel Auto (Bld)on 50-79-3771Nwcctiqzbes distribution width (RBC) [Entitic vol]13.1 %11.6 - 14.8 %OhioHealthHematocrit (Bld) [Volume fraction]26 % Low36.0 - 46.0 %OhioHealthHemoglobin (Bld) [Mass/Vol]8.9 g/dLLow12.0 - 16.0 g/dL [facility] PrebleInterpretation and review of laboratory resultsAbnormalOhioHealthMCH (RBC) [Entitic mass]31.2 pg26.0 - 34.0 pgOhioHealthMCHC (RBC) [Mass/Vol]34.2 g/dL31.0 - 37.0 g/dLOhioHealthMCV (RBC) [Entitic vol]91.2 fL80.0 - 100.0 fL OhioHealthNucleated RBC (Bld) [#/Vol]0 10*3/uLOhioHealthNucleated RBC/100 WBC (Bld) [Ratio]0 %OhioHealthPlatelet mean volume (Bld) [Entitic vol]9.2 fLLow9.4 - 12.4 fLOhioHealthPlatelets (Bld) [#/Vol]277 10*3/uLOhioHealthRBC (Bld) [#/Vol] 2.85 10*6/uLLowOhioHealthWBC (Bld) [#/Vol]7.42 10*3/uLOhioHealthOhioHealth Glucose (Bld) [Mass/Vol]on 96-21-3066Rpvueef [Mass/Vol]239 mg/gJYtvh83 - 99 mg/dLOhioHealthInterpretation and review of laboratory resultsAbnoUniversity Hospitals Health System GLUCOSE - [facility] INSTITUTESon 47-69-3676Lgzbtth [Mass/Vol]239 mg/uYBton09-68 [facility] GroveComment on above:Performed By: #### [id number] ####[facility] [address], [place] [address] Abbi Choudhary M.D. [id number] FUNCTION PANELon 56-46-1561Qhjvpbt [Mass/Vol]3.2 g/dLNoal3.2-5.2MColumbus Regional HealthComment on above:Order Comment: [facility] has implemented the eGFR calculation approach that does not have a coefficient for race that conforms to the NKF-ASN Task Force Recommendations.Performed By: #### [id number] ####[facility] [address], [place] [address] Abbi Choudhary M.D. [id number] gap [Moles/Vol]11 mmol/JOytldr57-74SmrnlgSelect Specialty Hospital - Beech Grove Comment on above:Order Comment: [facility] has implemented the eGFR calculation approach that does not have a coefficient for race that conforms to the NKF-ASN Task Force Recommendations.Performed By: #### [id number] ####[facility] [address], [place] [address] Abbi Choudhary M.D. 36D0 [id number] [Mass/Vol]8.3 mg/dLLow8.4-10.2MRiley Hospital for Children on above:Order Comment: [facility] has implemented the eGFR calculation approach that does not have a coefficient for race that conforms to the NKF-ASN Task Force Recommendations.Performed By: #### [id number] ####[facility] [address] [address] Abbi Choudhary M.D. [id number] [Moles/Vol]107 mmol/WVkuhlx33-088FmusvdMargaret Mary Community Hospital on above:Order Comment: [facility] has implemented the eGFR calculation approach that does not have a coefficient for race that conforms to the NKF-ASN Task Force Recommendations.Performed By: #### [id number] ####[facility] [address] [address] Abbi Choudhary M.D. [id number] [Mass/Vol]1.63 mg/dLHigh0.40-1.10[facility] on above:Order Comment: [facility] has implemented the eGFR calculation approach that does not have a coefficient for race that conforms to the NKF-ASN Task Force Recommendations.Performed By: #### [id number] ####[facility] [address], [place] [address] Abbi Choudhary M.D. [id number] mL/min/1.73 m2Low>=60 [facility] on above:Order Comment: [facility] has implemented the eGFR calculation approach that does not have a coefficient for race that conforms to the NKF-ASN Task Force Recommendations. Result Comment: Estimated GFR was calculated using the 2020 CKD-EPI creatinine equation.Performed By: #### [id number] ####[facility] [address] [address] Abbi Choudhary M.D. [id number] [Mass/Vol]233 mg/dIEfqu56-61WevqacParkview Regional Medical Centerment on above:Order Comment: [facility] has implemented the eGFR calculation approach that does not have a coefficient for race that conforms to the NKF-ASN Task Force Recommendations.Performed By: #### [id number] ####[facility] [address] [address] Abbi Choudhary M.D. [id number] (Bld) [Moles/Vol]29 mmol/KCrefya81-17AvtvjnSelect Specialty Hospital - Beech Grove Comment on above:Order Comment: [facility] has implemented the eGFR calculation approach that does not have a coefficient for race that conforms to the NKF-ASN Task Force Recommendations.Performed By: #### [id number] ####[facility] [address] [address] Abbi Choudhary M.D. 36D0 [id number] [Mass/Vol]3.8 mg/dLNormal2.7-4.5[facility] on above:Order Comment: [facility] has implemented the eGFR calculation approach that does not have a coefficient for race that conforms to the NKF-ASN Task Force Recommendations.Performed By: #### [id number] ####[facility] [address] [address] Abbi Choudhary M.D. [id number] [Moles/Vol]3.7 mmol/LNormal3.5-5.1MColumbus Regional HealthComascension standish hospital on above:Order Comment: [facility] has implemented the eGFR calculation approach that does not have a coefficient for race that conforms to the NKF-ASN Task Force Recommendations.Performed By: #### [id number] ####[facility] [address] [place], [place] [address] Abbi Choudhary M.D. [id number] [Moles/Vol]143 mmol/PLwrlph550-339SkwoczMargaret Mary Community Hospital on above:Order Comment: [facility] has implemented the eGFR calculation approach that does not have a coefficient for race that conforms to the NKF-ASN Task Force Recommendations.Performed By: #### [id number] ####[facility] [address], [place] [address] Abbi Choudhary M.D. [id number] nitrogen [Mass/Vol]14 mg/dLNormal8-25[facility] GroveComment on above:Order Comment: [facility] has implemented the eGFR calculation approach that does not have a coefficient for race that conforms to the NKF-ASN Task Force Recommendations.Performed By: #### [id number] ####[facility] [address], [place] [address] Abbi Choudhary M.D. [id number] nitrogen/Creatinine [Mass ratio]8.6 mg/mgLow10.0-20.0[facility] on above:Order Comment: [facility] has implemented the eGFR calculation approach that does not have a coefficient for race that conforms to the NKF-ASN Task Force Recommendations.Performed By: #### 79613 ####[facility] [address] [place], [place] [address] Abbi Choudhary M.D. [id number] function 2000 panel on 81-08-5607Kkxqvdt [Mass/Vol]3.2 g/dL3.2 - 5.2 g/dLOhioHealthAnion gap [Moles/Vol]11 mmol/L10 - 20 mmol/LOhioHealthCalcium [Mass/Vol]8.3 mg/dLLow8.4 - 10.2 mg/dLOhioHealthChloride [Moles/Vol]107 mmol/L98 - 108 mmol/LOhioHealth Creatinine [Mass/Vol]1.63 mg/dLHigh0.40 - 1.10 mg/dLOhioHealthGFR/1.73 sq M.predicted CKD-EPI (S/P/Bld) [Vol rate/Area]39Low- PINFOhioHealthGlucose [Mass/Vol]233 mg/nOEfdr73 - 99 mg/dLOhioHealthHCO3 [Moles/Vol]29 mmol/L21 - 32 mmol/LOhioHealthInterpretation and review of laboratory resultsAbnormal OhioHealthPhosphate [Mass/Vol]3.8 mg/dL2.7 - 4.5 mg/dLOhioHealthPotassium [Moles/Vol]3.7 mmol/L3.5 - 5.1 mmol/LOhioHealthSodium [Moles/Vol]143 mmol/L135 - 145 mmol/LOhioHealthUrea nitrogen [Mass/Vol]14 mg/dL8 - 25 mg/dLOhioHealthUrea nitrogen/Creatinine [Mass ratio]8.6 mg/mgLow10.0 - 20.0OhioHealthKyioHealth OhioHealthXR Foot - left 3 Viewson 99-53-5167OO RISGE RISOhioHealthXR Foot - left 3 ViewsOrdered By: Augustine Mittal on 48-48-1805TxqhSusxcv Work Phone: CBGranville Medical Center 21-09-2386WQJU NRBC0.0 %NormalSelect Specialty Hospital - Beech GroveComment on above:Performed By: #### [id number] ####[facility] [address] [address] Abbi Choudhary M.D. [id number] NRBC ABS COUNT0.00 K/mcL Normal0.00-0.00[facility] Bee[facility] GroveComment on above:Performed By: #### [id number] ####[facility] [address] [address] Abbi Choudhary M.D. 36D0 247354Jmfrdjjokam distribution width (RBC) [Ratio]13.0 %Afoket41.6-14.8[facility] GroveComment on above:Performed By: #### [id number] ####[facility] [address], [place] [address]Alisia Choudhary M.D. [id number] (Bld) [Volume fraction]27.2 %Low36.0-46.0[facility] HospitalComment on above: Performed By: #### [id number] ####[facility] [address], [place] [address]Alisia Choudhary M.D. [id number] (Bld) [Mass/Vol]9.2 g/dLLow12.0-16.0[facility] HospitalComment on above:Performed By: #### 10114 ####[facility] [address] [address] Abbi Choudhary M.D. [id number] (RBC) [Entitic mass]30.9 zwJvtbzd74.0-34.0[facility] GroveComment on above: Performed By: #### [id number] ####[facility] [address] [address] Abbi Choudhary M.D. [id number] (RBC) [Entitic vol]91.3 wPWwiwuh29.0-100.0[facility] GroveComment on above:Performed By: #### [id number] ####[facility] [address] [address] Abbi Choudhary M.D. [id number] CORPUSCULAR HEMOGLOBIN CONC33.8 g/gOXopkqz25.0-37.0[facility] GroveComment on above: Performed By: #### 05411 ####[facility] [address] [address] Abbi Choudhary M.D. [id number] mean volume (Bld) [Entitic vol]8.8 fLLow 9.4-12.4[facility] GroveComment on above:Performed By: #### 86561 ####[facility] [address] [address] Abbi Choudhary M.D. [id number] Platelets (Bld) [#/Vol]252 10*3/jZBzbizm593-599LxfdjhSelect Specialty Hospital - Beech GroveComment on above:Performed By: #### [id number] ####[facility] [address] [address] Abbi Choudhary M.D. [id number] (Bld) [#/Vol]2.98 10*6/uLLow4.00-5.20 [facility] GroveComment on above:Performed By: #### [id number] ####[facility] [address] [address] Abib Choudhary M.D. [id number] (Bld) [#/Vol]6.99 10*3/uLNormal4.50-11.00[facility] HospitalComment on above: Performed By: #### [id number] ####[facility] [address] [address] Abbi Choudhary M.D. [id number] panel Auto (Bld)on 17-14-3511Xwahnclzstj distribution width (RBC) [Entitic vol]13 %11.6 - 14.8 %OhioHealthHematocrit (Bld) [Volume fraction]27.2 %Low36.0 - 46.0 %OhioHealthHemoglobin (Bld) [Mass/Vol]9.2 g/dLLow12.0 - 16.0 g/dLOhioHealthInterpretation and review of laboratory resultsAbnormalOhioHealthMCH (RBC) [Entitic mass]30.9 pg26.0 - 34.0 pgOhioHealthMCHC (RBC) [Mass/Vol]33.8 g/dL31.0 - 37.0 g/dLOhioHealthMCV (RBC) [Entitic vol]91.3 fL80.0 - 100.0 fLOhioHealthNucleated RBC (Bld) [#/Vol]0 10*3/uLOhioHealthNucleated RBC/100 WBC (Bld) [Ratio]0 %OhioHealthPlatelet mean volume (Bld) [Entitic vol]8.8 fLLow9.4 - 12.4 fLOhioHealthPlatelets (Bld) [#/Vol]252 10*3/uLOhioHealthRBC (Bld) [#/Vol]2.98 10*6/uLLowOhioHealthWBC (Bld) [#/Vol]6.99 10*3/uLOhioHealthOhioHealthCT Foot - left WO contraston 95-15-1856OB RISGE RISOhioHealthCT Foot - left WO contrastOrdered By: Kavin Duncan on 00-29-3399NpzoBivmay Work Phone: Glucose (Bld) [Mass/Vol]on 65-13-1506Ppmrwhw [Mass/Vol]253 mg/rOPrdr12 - 99 mg/dLOhioHealthInterpretation and review of laboratory resultsAbnormalOhioHealthOhioHealthGlucose [Mass/Vol]92 mg/dL65 - 99 mg/dLOhioHealthInterpretation and review of laboratory resultsNormalOhioHealEast [place] Regional HospitalOP NOTEon 63-73-0359NV NOTENoDeKalb Memorial HospitalPO GLUCOSE - RALSon 56-59-9464Lswzcml [Mass/Vol]253 mg/tRMsmb80-72Qzhhww[address] [place] [address] Comment on above:Performed By: #### [id number] ####[facility] [address], [place] [address] Abbi Choudhary M.D. [id number] [Mass/Vol]92 mg/dLNormal [address] [place], [place] [address]Comment on above:Performed By: #### 02947 ####[facility] [address] [place], [place] [address] Abbi Choudhary M.D. [id number] FUNCTION PANELon 46-73-3112Aukbejb [Mass/Vol]3.3 g/dLNormal3.2-5.2MColumbus Regional HealthComment on above:Order Comment: [facility] has implemented the eGFR calculation approach that does not have a coefficient for race that conforms to the NKF-ASN Task Force Recommendations.Performed By: #### 01849 ####[facility] [address] [place], [place] [address] Abbi Choudhary M.D. [id number] gap [Moles/Vol]12 mmol/MKesdox02-78VpxmoySelect Specialty Hospital - [facility] Comment on above:Order Comment: [facility] has implemented the eGFR calculation approach that does not have a coefficient for race that conforms to the NKF-ASN Task Force Recommendations.Performed By: #### [id number] ####[facility] [address] [place], [place] [address] Abbi Choudhary M.D. 36D0 060603Kuubrrp [Mass/Vol]8.6 mg/dLNormal8.4-10.2MColumbus Regional HealthComascension standish hospital on above:Order Comment: [facility] has implemented the eGFR calculation approach that does not have a coefficient for race that conforms to the NKF-ASN Task Force Recommendations.Performed By: #### 83085 ####[facility] [address] [place], [place] [address] Abbi Choudhary M.D. [id number] [Moles/Vol]108 mmol/SMhayrz28-046SdxvcxMargaret Mary Community Hospital on above:Order Comment: [facility] has implemented the eGFR calculation approach that does not have a coefficient for race that conforms to the NKF-ASN Task Force Recommendations.Performed By: #### 92741 ####[facility] [address] [place], [place] [address] Abbi Choudhary M.D. [id number] [Mass/Vol]1.28 mg/dLHigh0.40-1.10[facility] on above:Order Comment: [facility] has implemented the eGFR calculation approach that does not have a coefficient for race that conforms to the NKF-ASN Task Force Recommendations.Performed By: #### [id number] ####[facility] [address] [address] Abbi Choudhary M.D. [id number] mL/min/1.73 m2Low>=60 [facility] on above:Order Comment: [facility] has implemented the eGFR calculation approach that does not have a coefficient for race that conforms to the NKF-ASN Task Force Recommendations. Result Comment: Estimated GFR was calculated using the 2020 CKD-EPI creatinine equation.Performed By: #### [id number] ####[facility] [address] [place], [place] [address] Abbi Choudhary M.D. [id number] [Mass/Vol]162 mg/bOZept81-18KtymuiRiley Hospital for Children on above:Order Comment: [facility] has implemented the eGFR calculation approach that does not have a coefficient for race that conforms to the NKF-ASN Task Force Recommendations.Performed By: #### 09962 ####[facility] [address] [place], [place] [address] Abbi Choudhary M.D. [id number] (Bld) [Moles/Vol]27 mmol/OHaifpv75-78CljvxbSelect Specialty Hospital [facility] Comment on above:Order Comment: [facility] has implemented the eGFR calculation approach that does not have a coefficient for race that conforms to the NKF-ASN Task Force Recommendations.Performed By: #### [id number] ####[facility] [address] [address] Abbi Choudhary M.D. 36D0 [id number] [Mass/Vol]2.8 mg/dLNormal2.7-4.5[facility] on above:Order Comment: [facility] has implemented the eGFR calculation approach that does not have a coefficient for race that conforms to the NKF-ASN Task Force Recommendations.Performed By: #### [id number] ####[facility] [address] [address] Abbi Choudhary M.D. [id number] [Moles/Vol]3.5 mmol/LNormal3.5-5.1MRiley Hospital for Children on above:Order Comment: [facility] has implemented the eGFR calculation approach that does not have a coefficient for race that conforms to the NKF-ASN Task Force Recommendations.Performed By: #### 01686 ####[facility] [address] [address] Abbi Choudhary M.D. [id number] [Moles/Vol]143 mmol/QCeiake266-534EjxcspMargaret Mary Community Hospital on above:Order Comment: [facility] has implemented the eGFR calculation approach that does not have a coefficient for race that conforms to the NKF-ASN Task Force Recommendations.Performed By: #### [id number] ####[facility] [address] [address] Abbi Choudhary M.D. [id number] nitrogen [Mass/Vol]14 mg/dLNormal8-25[facility] on above:Order Comment: [facility] has implemented the eGFR calculation approach that does not have a coefficient for race that conforms to the NKF-ASN Task Force Recommendations.Performed By: #### 83559 ####[facility] [address] [address] Abbi Choudhary M.D. [id number] nitrogen/Creatinine [Mass ratio]10.9 mg/cyKntbpj22.0-20.0[facility] GroveComment on above:Order Comment: [facility] has implemented the eGFR calculation approach that does not have a coefficient for race that conforms to the NKF-ASN Task Force Recommendations.Performed By: #### 70781 ####[facility] [address] [address] Abbi Choudhary M.D. [id number] function 2000 panel on 23-98-3845Wjsrxnt [Mass/Vol]3.3 g/dL3.2 - 5.2 g/dLOhioHealthAnion gap [Moles/Vol]12 mmol/L10 - 20 mmol/LOhioHealthCalcium [Mass/Vol]8.6 mg/dL8.4 - 10.2 mg/dLOhioHealthChloride [Moles/Vol]108 mmol/L98 - 108 mmol/LOhioHealth Creatinine [Mass/Vol]1.28 mg/dLHigh0.40 - 1.10 mg/dLOhioHealthGFR/1.73 sq M.predicted CKD-EPI (S/P/Bld) [Vol rate/Area]52Low- PINFOhioHealthGlucose [Mass/Vol]162 mg/vKCqvk06 - 99 mg/dLOhioHealthHCO3 [Moles/Vol]27 mmol/L21 - 32 mmol/LOhioHealthInterpretation and review of laboratory resultsAbnormal OhioHealthPhosphate [Mass/Vol]2.8 mg/dL2.7 - 4.5 mg/dLOhioHealthPotassium [Moles/Vol]3.5 mmol/L3.5 - 5.1 mmol/LOhioHealthSodium [Moles/Vol]143 mmol/L135 - 145 mmol/LOhioHealthUrea nitrogen [Mass/Vol]14 mg/dL8 - 25 mg/dLOhioHealthUrea nitrogen/Creatinine [Mass ratio]10.9 mg/mg10.0 - 20.0OhioHealthOhioHealth [facility] PrebleSURGICAL SITE AEROBIC CULTUREon 89-51-5371PPLMKWSQ SITE AEROBIC CULTUREAEROBIC CULTURE STAPHYLOCOCCUS EPIDERMIDIS Rare growth Staphylococcus epidermidis See susceptibility from same source/same date. GRAM STAIN RESULT Many WBC Many RBC No Organisms SeenAbLogansport Memorial HospitalComment on above:Performed By: #### [id number] ####[facility] [address] [place] [address] Swapnil Brewer M.D. [id number] EXAMon 02-10-3206WZAJDH EXAMNoDeKalb Memorial HospitalComment on above:Performed By: #### [id number] ####[facility] [address] [place], [place] [address] Abbi Choudhary M.D. [id number] COUNTY MEM[facility] [address] [place] [address] Swapnil Brewer M.D. [id number] Aerobic And Anaerobic CultureOrdered By: Gayla Cook on 55-00-3063Uznosbaj identified Aer cx Nom (Unsp spec)No Anaerobic Growth after 5 daysOhioHealthBacteria identified Aer cx Nom (Unsp spec)Light Growth Staphylococcus aureusAbnormalOhioHealth Bacteria identified Aer cx Nom (Unsp spec)Light Growth Normal Skin Eric OhioHealthInterpretation and review of laboratory resultsAbnormalOhioHealth Microscopic observation Gram stain Nom (Unsp spec)No WBC SeenOhioHealth Microscopic observation Gram stain Nom (Unsp spec)No Organisms SeenOhioHealth [facility]bleXR FOOT LEFT 3+ VIEWS (STANDARD)on 97-02-5697ZI FOOT LEFT 3+ VIEWS (STANDARD)[facility] HospitalComment on above:Order Comment: Injury/Trauma or Illness?:Illness/OtherHow long have you had these symptoms (acute/chronic)?:AcuteReason for exam?:Status post amputation left hallux distal phalanxHistory of cancer?:uSurgeries, chemotherapy, or radiation?:pacemakerType of Exam?:InitialAdditional signs and symptoms?:Status post amputation left hallux distal phalanxXR Foot - left 3 Viewson 85-31-8866Egixkotih Study observation (narrative)OhioHealthCBGranville Medical Center 58-82-7132CDXZ NRBC0.0 %[facility] Memorial HospitalComment on above:Performed By: #### [id number] ####[facility] [address] [place], [place] [address] Abbi Choudhary M.D. [id number] NRBC ABS COUNT0.00 K/mcLNormal0.00-0.00[facility] GroveComment on above:Performed By: #### [id number] ####[facility] [address] [address] Abbi Choudhary M.D. [id number] distribution width (RBC) [Ratio]12.6 %Zxnlbk24.6-14.8 [facility] GroveComment on above:Performed By: #### [id number] ####[facility] [address] [address] Abbi Choudhary M.D. [id number] (Bld) [Volume fraction]26.9 %Low36.0-46.0[facility] GroveComment on above:Performed By: #### [id number] ####[facility] [address] [address] Abbi Choudhary M.D. [id number] (Bld) [Mass/Vol]9.1 g/dLLow12.0-16.0 [facility] GroveComment on above:Performed By: #### [id number] ####[facility] [address] [address] Abbi Choudhary M.D. [id number] (RBC) [Entitic mass]31.8 dqYxhksk01.0-34.0[facility] GroveComment on above: Performed By: #### [id number] ####[facility] [address] [address] Abbi Choudhary M.D. [id number] (RBC) [Entitic vol]94.1 uXRmmmbz92.0-100.0[facility] GroveComment on above:Performed By: #### [id number] ####[facility] [address] [address] Abbi Choudhary M.D. [id number] CORPUSCULAR HEMOGLOBIN CONC33.8 g/cTJgsqpn54.0-37.0[facility] GroveComment on above: Performed By: #### [id number] ####[facility] [address] [address] Abbi Choudhary M.D. [id number] mean volume (Bld) [Entitic vol]9.6 fLNormal 9.4-12.4[facility] GroveComment on above:Performed By: #### [id number] ####[facility] [address] [address] Abbi Choudhary M.D. [id number] Platelets (Bld) [#/Vol]266 10*3/nRNbqajp854-044HsixxuSelect Specialty Hospital - Beech GroveComment on above:Performed By: #### [id number] ####[facility] [address] [address] Abbi Choudhary M.D. [id number] (Bld) [#/Vol]2.86 10*6/uLLow4.00-5.20 [facility]Com[facility] on above:Performed By: #### [id number] ####[facility] [address] [address] Abbi Choudhary M.D. [id number] (Bld) [#/Vol]6.83 10*3/uLNormal4.50-11.00[facility] GroveComasc[facility] on above: Performed By: #### [id number] ####[facility] [address] [address] Abbi Choudhary M.D. [id number] panel Auto (Bld)on 39-83-8021Rlwfpnpjcim distribution width (RBC) [Entitic vol]12.6 %11.6 - 14.8 %OhioHealthHematocrit (Bld) [Volume fraction]26.9 %Low36.0 - 46.0 %OhioHealthHemoglobin (Bld) [Mass/Vol]9.1 g/dLLow12.0 - 16.0 g/dLOhioHealthInterpretation and review of laboratory resultsAbnormalOhioHealthMCH (RBC) [Entitic mass]31.8 pg26.0 - 34.0 pgOhioHealthMCHC (RBC) [Mass/Vol]33.8 g/dL31.0 - 37.0 g/dLOhioHealthMCV (RBC) [Entitic vol]94.1 fL80.0 - 100.0 fLOhioHealthNucleated RBC (Bld) [#/Vol]0 10*3/uLOhioHealthNucleated RBC/100 WBC (Bld) [Ratio]0 %OhioHealthPlatelet mean volume (Bld) [Entitic vol]9.6 fL9.4 - 12.4 fLOhioHealthPlatelets (Bld) [#/Vol] 266 10*3/uLOhioHealthRBC (Bld) [#/Vol]2.86 10*6/uLLowOhioHealthWBC (Bld) [#/Vol] 6.83 10*3/uLOhioHealthOhioHealthCT ABDOMEN PELVIS WITHOUT CONTRASTon 03-31-2024 CT ABDOMEN PELVIS WITHOUT CONTRASTNoDeKalb Memorial HospitalComment on above: Order Comment: Injury/Trauma or Illness?:Illness/OtherHow long have you had these symptoms (acute/chronic)?:AcuteReason for exam?:Abdominal/flank pain, stone suspectedType of Exam?:InitialAdditional signs and symptoms?:Abdominal/flank pain, stone suspectedCT Abdomen and Pelvis WO contrast on 89-85-3150FD RISGE RISKyioHealthRadiology Study observation (narrative) [facility]CT Abdomen and Pelvis WO contrastOrdered By: Lawrence Coronado on 79-16-4553HkzdIkogoy Work Phone: CT FOOT LEFT WITHOUT CONTRASTon 33-97-9614PF FOOT LEFT WITHOUT CONTRASTWhite County Memorial HospitalComment on above:Order Comment: Injury/Trauma or Illness?:Illness/OtherHow long have you had these symptoms (acute/chronic)?:AcuteReason for exam?:osteomyelitisType of Exam?:InitialAdditional signs and symptoms?:footpainCT Foot - left WO contraston 41-41-5506Jhjfpftqb Study observation (narrative)[facility]bleRENAL FUNCTION PANEL on 24-16-0893Gmarkyv [Mass/Vol]3.1 g/dLLow3.2-5.2[facility] HospitalComment on above:Order Comment: [facility] has implemented the eGFR calculation approach that does not have a coefficient for race that conforms to the NKF-ASN Task Force Recommendations.Performed By: #### [id number] ####[facility] [address] [place], [place] [address] Abbi Choudhary M.D. [id number] gap [Moles/Vol]9 mmol/DAtp54-53ZyxhywMargaret Mary Community Hospital on above:Order Comment: [facility] has implemented the eGFR calculation approach that does not have a coefficient for race that conforms to the NKF-ASN Task Force Recommendations.Performed By: #### [id number] ####[facility] [address] [place], [place] [address] Abbi Choudhary M.D. [id number] [Mass/Vol]8.9 mg/dLNormal8.4-10.2MRiley Hospital for Children on above:Order Comment: [facility] has implemented the eGFR calculation approach that does not have a coefficient for race that conforms to the NKF-ASN Task Force Recommendations.Performed By: #### [id number] ####[facility] [address] [place], [place] [address] Abbi Choudhary M.D. [id number] [Moles/Vol]109 mmol/L Fvhn47-682BktgxcMargaret Mary Community Hospital on above:Order Comment: [facility] has implemented the eGFR calculation approach that does not have a coefficient for race that conforms to the NKF-ASN Task Force Recommendations.Performed By: #### [id number] ####[facility] [address] [place], [place] [address] Abbi Choudhary M.D. [id number] [Mass/Vol]1.22 mg/dLHigh 0.40-1.10[facility] on above:Order Comment: [facility] has implemented the eGFR calculation approach that does not have a coefficient for race that conforms to the NKF-ASN Task Force Recommendations.Performed By: #### [id number] ####[facility] [address] [place], [place] [address] Abbi Choudhary M.D. [id number] mL/min/1.73 m2Low>=60[facility] on above:Order Comment: [facility] has implemented the eGFR calculation approach that does not have a coefficient for race that conforms to the NKF-ASN Task Force Recommendations.Result Comment: Estimated GFR was calculated using the 2020 CKD-EPI creatinine equation. Performed By: #### [id number] ####[facility] [address] [place], [place] [address] Abbi Choudhary M.D. [id number] [Mass/Vol]139 mg/pMPpnq11-71JupsidRiley Hospital for Children on above:Order Comment: [facility] has implemented the eGFR calculation approach that does not have a coefficient for race that conforms to the NKF-ASN Task Force Recommendations.Performed By: #### [id number] ####[facility] [address] [address] Abbi Choudhary M.D. [id number] (Bld) [Moles/Vol]28 mmol/QOmvaeu60-42VoysflSelect Specialty Hospital - Beech Grove Comment on above:Order Comment: [facility] has implemented the eGFR calculation approach that does not have a coefficient for race that conforms to the NKF-ASN Task Force Recommendations.Performed By: #### [id number] ####[facility] [address] [place], [place] [address] Abbi Choudhary M.D. 36D0 [id number] [Mass/Vol]2.7 mg/dLNormal2.7-4.5[facility] on above:Order Comment: [facility] has implemented the eGFR calculation approach that does not have a coefficient for race that conforms to the NKF-ASN Task Force Recommendations.Performed By: #### [id number] ####[facility] [address] [place], [place] [address] Abbi Choudhary M.D. [id number] [Moles/Vol]3.4 mmol/LLow3.5-5.1MRiley Hospital for Children on above:Order Comment: [facility] has implemented the eGFR calculation approach that does not have a coefficient for race that conforms to the NKF-ASN Task Force Recommendations.Performed By: #### [id number] ####[facility] [address] [place], [place] [address] Abbi Choudhary M.D. [id number] [Moles/Vol]143 mmol/NKxsvxl637-419DgbwauMargaret Mary Community Hospital on above:Order Comment: [facility] has implemented the eGFR calculation approach that does not have a coefficient for race that conforms to the NKF-ASN Task Force Recommendations.Performed By: #### [id number] ####[facility] [address] [place], [place] [address] Abbi Choudhary M.D. [id number] nitrogen [Mass/Vol]20 mg/dLNormal8-25[facility] on above:Order Comment: [facility] has implemented the eGFR calculation approach that does not have a coefficient for race that conforms to the NKF-ASN Task Force Recommendations.Performed By: #### [id number] ####[facility] [address] [place], [place] [address] Abbi Choudhary M.D. [id number] nitrogen/Creatinine [Mass ratio]16.4 mg/gqUiiusn32.0-20.0[facility] on above:Order Comment: [facility] has implemented the eGFR calculation approach that does not have a coefficient for race that conforms to the NKF-ASN Task Force Recommendations.Performed By: #### [id number] ####[facility] [address] [place], [place] [address] Abbi Choudhary M.D. [id number] function 2000 panel on 00-70-8487Jkwdfvu [Mass/Vol]3.1 g/dLLow3.2 - 5.2 g/dLOhioHealthAnion gap [Moles/Vol]9 mmol/LLow10 - 20 mmol/LOhioHealthCalcium [Mass/Vol]8.9 mg/dL8.4 - 10.2 mg/dLOhioHealthChloride [Moles/Vol]109 mmol/LHigh98 - 108 mmol/LOhioHealth Creatinine [Mass/Vol]1.22 mg/dLHigh0.40 - 1.10 mg/dLOhioHealthGFR/1.73 sq M.predicted CKD-EPI (S/P/Bld) [Vol rate/Area]56Low- PINFOhioHealthGlucose [Mass/Vol]139 mg/aGScrv00 - 99 mg/dLOhioHealthHCO3 [Moles/Vol]28 mmol/L21 - 32 mmol/LOhioHealthInterpretation and review of laboratory resultsAbnormal OhioHealthPhosphate [Mass/Vol]2.7 mg/dL2.7 - 4.5 mg/dLOhioHealthPotassium [Moles/Vol]3.4 mmol/LLow3.5 - 5.1 mmol/LOhioHealthSodium [Moles/Vol]143 mmol/L 135 - 145 mmol/LOhioHealthUrea nitrogen [Mass/Vol]20 mg/dL8 - 25 mg/dLOhioHealth Urea nitrogen/Creatinine [Mass ratio]16.4 mg/mg10.0 - 20.0OhioHealthOhioHealth OhioHealthBacteria identified Cx Nom (Bld)on 59-82-5868Muspemilllblgn and review of laboratory resultsNormalOhioHealthOhioHealthCBCon 91-46-1802KDLH NRBC0.0 % NormalSelect Specialty Hospital - Beech GroveComment on above:Performed By: #### [id number] ####[facility] [address] [address] Abbi Choudhary M.D. [id number] NRBC ABS COUNT0.00 K/mcLNormal0.00-0.00[facility] GroveComment on above: Performed By: #### [id number] ####[facility] [address] [address] Abbi Choudhary M.D. [id number] distribution width (RBC) [Ratio]12.6 % Sshuxi84.6-14.8[facility] Bee[facility] GroveComment on above:Performed By: #### [id number] ####[facility] [address] [place], [place] [address] Abbi Choudhary M.D. 36D0 [id number] (Bld) [Volume fraction]29.7 %Low36.0-46.0[facility] Bee[facility] GroveComment on above:Performed By: #### [id number] ####[facility] [address] [place], [place] [address] Abbi Choudhary M.D. [id number] (Bld) [Mass/Vol]9.4 g/dLLow12.0-16.0[facility] GroveComment on above:Performed By: #### [id number] ####[facility] [address] [address] Abbi Choudhary M.D. [id number] (RBC) [Entitic mass]30.2 rcOfzfzd60.0-34.0[facility] Comment on above:Performed By: #### [id number] ####[facility] [address] [address] Abbi Choudhary M.D. [id number] (RBC) [Entitic vol]95.5 fLNormal 80.0-100.0[facility] Bee[facility] GroveComment on above:Performed By: #### [id number] ####[facility] [address] [address] Abbi Choudhary M.D. 36D0 [id number] CORPUSCULAR HEMOGLOBIN CONC31.6 g/oZJpqzhj30.0-37.0[facility] GroveComment on above:Performed By: #### [id number] ####[facility] [address] [address] Abbi Choudhary M.D. [id number] mean volume (Bld) [Entitic vol]9.6 fLNormal9.4-12.4[facility] GroveComment on above: Performed By: #### [id number] ####[facility] [address] [address] Abbi Choudhary M.D. [id number] (Bld) [#/Vol]263 10*3/pXOysxay798-502PboaloSelect Specialty Hospital - Beech GroveComment on above:Performed By: #### [id number] ####[facility] [address] [address] Abbi Choudhary M.D. [id number] (Bld) [#/Vol]3.11 10*6/uLLow4.00-5.20[facility] HospitalComment on above:Performed By: #### [id number] ####[facility] [address] [place], [place] [address] Abbi Choudhary M.D. [id number] (Bld) [#/Vol]6.90 10*3/uLNormal4.50-11.00[facility] GroveComment on above:Performed By: #### [id number] ####[facility] [address] [place], [place] [address] Abbi Choudhary M.D. [id number] panel Auto (Bld)on 27-20-8488Rlqflxsfonf distribution width (RBC) [Entitic vol]12.6 %11.6 - 14.8 % [facility] PrebleHematocrit (Bld) [Volume fraction]29.7 %Low36.0 - 46.0 %[facility] Hemoglobin (Bld) [Mass/Vol]9.4 g/dLLow12.0 - 16.0 g/dLOhioHealthInterpretation and review of laboratory resultsAbnormalOhioHealthMCH (RBC) [Entitic mass]30.2 pg26.0 - 34.0 pgOhioHealthMCHC (RBC) [Mass/Vol]31.6 g/dL31.0 - 37.0 g/dL [facility] PrebleMCV (RBC) [Entitic vol]95.5 fL80.0 - 100.0 fLOhioHealthNucleated RBC (Bld) [#/Vol]0 10*3/uLOhioHealthNucleated RBC/100 WBC (Bld) [Ratio]0 %[facility] Platelet mean volume (Bld) [Entitic vol]9.6 fL9.4 - 12.4 fLOhioHealthPlatelets (Bld) [#/Vol]263 10*3/uLOhioHealthRBC (Bld) [#/Vol]3.11 10*6/uLLowOhioHealthWBC (Bld) [#/Vol]6.9 10*3/uLOhioHealthOhioHealthCONSULTon 21-51-7494AFAWAOEBicmgdOaklawn Psychiatric CenterGlucose (Bld) [Mass/Vol]on 92-38-3536Ftbpzhl [Mass/Vol] 250 mg/jVNrfq85 - 99 mg/dLOhioHealthInterpretation and review of laboratory resultsAbnormalOhioHealthKyioHealthGlucose [Mass/Vol]102 mg/kTScst37 - 99 mg/dL OhioHealthInterpretation and review of laboratory resultsAbnormalOhioHealth OhioHealthGlucose [Mass/Vol]183 mg/wRLvxr89 - 99 mg/dLOhioHealthInterpretation and review of laboratory resultsAbnormalOhioHealthKyioHealthGlucose [Mass/Vol] 285 mg/gSJndr56 - 99 mg/dLOhioHealthInterpretation and review of laboratory resultsAbnormAdena Health SystemioHealthLaboratory - Microbiology and Antimicrobial susceptibilityon 94-71-3336Hjpmwgux identified Cx Nom (Bld)No Growth after 5 daysOhioOhio State Health System GLUCO[facility] 62-85-0388Zikteui [Mass/Vol]250 mg/dLHigh 65-99MColumbus Regional HealthComment on above:Performed By: #### [id number] ####[facility] [address] [address] Abbi Choudhary M.D. [id number] [Mass/Vol]102 mg/cUBnmh38-63MyevwvColumbus Regional HealthComment on above:Performed By: #### [id number] ####[facility] [address] [address] Abbi Choudhary M.D. [id number] [Mass/Vol]183 mg/cDIacb58-61BxyjtbColumbus Regional Health Comment on above:Performed By: #### [id number] ####[facility] [address] [place], [place] [address] Abbi Choudhary M.D. [id number] [Mass/Vol]285 mg/qIIlnb55-67 [facility] Bee[facility] GroveComment on above:Performed By: #### 25108 ####[facility] [address] [address] Abbi Choudhary M.D. [id number] FUNCTION PANELon 12-56-8505Iyjvumt [Mass/Vol]3.3 g/dLNormal3.2-5.2MColumbus Regional HealthComment on above:Order Comment: [facility] has implemented the eGFR calculation approach that does not have a coefficient for race that conforms to the NKF-ASN Task Force Recommendations.Performed By: #### [id number] ####[facility] [address] [place], [place] [address] Abbi Choudhary M.D. [id number] gap [Moles/Vol]11 mmol/KWqrarr05-85NgdgawSelect Specialty Hospital - [facility] Grove Comment on above:Order Comment: [facility] has implemented the eGFR calculation approach that does not have a coefficient for race that conforms to the NKF-ASN Task Force Recommendations.Performed By: #### [id number] ####[facility] [address] [place], [place] [address] Abbi Choudhary M.D. 36D0 153014Itsszmm [Mass/Vol]9.1 mg/dLNormal8.4-10.2MColumbus Regional HealthComment on above:Order Comment: [facility] has implemented the eGFR calculation approach that does not have a coefficient for race that conforms to the NKF-ASN Task Force Recommendations.Performed By: #### [id number] ####[facility] [address] [place], [place] [address] Abbi Choudhary M.D. [id number] [Moles/Vol]108 mmol/KKqrusk02-389CttdgrSelect Specialty Hospital - Beech GroveComment on above:Order Comment: [facility] has implemented the eGFR calculation approach that does not have a coefficient for race that conforms to the NKF-ASN Task Force Recommendations.Performed By: #### [id number] ####[facility] [address] [place], [place] [address] Abbi Choudhary M.D. [id number] [Mass/Vol]1.67 mg/dLHigh0.40-1.10[facility] GroveComascension standish hospital on above:Order Comment: [facility] has implemented the eGFR calculation approach that does not have a coefficient for race that conforms to the NKF-ASN Task Force Recommendations.Performed By: #### [id number] ####[facility] [address] [place], [place] [address] Abbi Choudhary M.D. [id number] mL/min/1.73 m2Low>=60 [facility] on above:Order Comment: [facility] has implemented the eGFR calculation approach that does not have a coefficient for race that conforms to the NKF-ASN Task Force Recommendations. Result Comment: Estimated GFR was calculated using the 2020 CKD-EPI creatinine equation.Performed By: #### [id number] ####[facility] [address] [address] Abbi Choudhary M.D. [id number] [Mass/Vol]301 mg/sOWkoq29-74ZcrtcqRiley Hospital for Children on above:Order Comment: [facility] has implemented the eGFR calculation approach that does not have a coefficient for race that conforms to the NKF-ASN Task Force Recommendations.Performed By: #### 80705 ####[facility] [address] [address] Abbi Choudhary M.D. [id number] (Bld) [Moles/Vol]24 mmol/FWrssth78-17RtaejySelect Specialty Hospital - [facility] [place] Comment on above:Order Comment: [facility] has implemented the eGFR calculation approach that does not have a coefficient for race that conforms to the NKF-ASN Task Force Recommendations.Performed By: #### [id number] ####[facility] [address] [address] Abbi Choudhary M.D. 36D0 132423Hioonbwof [Mass/Vol]3.0 mg/dLNormal2.7-4.5[facility] on above:Order Comment: [facility] has implemented the eGFR calculation approach that does not have a coefficient for race that conforms to the NKF-ASN Task Force Recommendations.Performed By: #### 52614 ####[facility] [address] [address] Abbi Choudhary M.D. [id number] [Moles/Vol]4.1 mmol/LNormal3.5-5.1MRiley Hospital for Children on above:Order Comment: [facility] has implemented the eGFR calculation approach that does not have a coefficient for race that conforms to the NKF-ASN Task Force Recommendations.Performed By: #### [id number] ####[facility] [address] [place], [place] [address] Abbi Choudhary M.D. [id number] [Moles/Vol]139 mmol/VMkrach418-838DrdtcsMargaret Mary Community Hospital on above:Order Comment: [facility] has implemented the eGFR calculation approach that does not have a coefficient for race that conforms to the NKF-ASN Task Force Recommendations.Performed By: #### [id number] ####[facility] [address] [place], [place] [address] Abbi Choudhary M.D. [id number] nitrogen [Mass/Vol]29 mg/dLHigh8-25[facility] on above:Order Comment: [facility] has implemented the eGFR calculation approach that does not have a coefficient for race that conforms to the NKF-ASN Task Force Recommendations.Performed By: #### [id number] ####[facility] [address] [place], [place] [address] Abbi Choudhary M.D. [id number] nitrogen/Creatinine [Mass ratio]17.4 mg/jtZirzlx05.0-20.0[facility] on above:Order Comment: [facility] has implemented the eGFR calculation approach that does not have a coefficient for race that conforms to the NKF-ASN Task Force Recommendations.Performed By: #### [id number] ####[facility] [address] [place], [place] [address] Abbi Choudhary M.D. [id number] function 2000 panel on 32-51-0329Ypqersl [Mass/Vol]3.3 g/dL3.2 - 5.2 g/dLOhioHealthAnion gap [Moles/Vol]11 mmol/L10 - 20 mmol/LOhioHealthCalcium [Mass/Vol]9.1 mg/dL8.4 - 10.2 mg/dLOhioHealthChloride [Moles/Vol]108 mmol/L98 - 108 mmol/LOhioHealth Creatinine [Mass/Vol]1.67 mg/dLHigh0.40 - 1.10 mg/dLOhioHealthGFR/1.73 sq M.predicted CKD-EPI (S/P/Bld) [Vol rate/Area]38Low- PINFOhioHealthGlucose [Mass/Vol]301 mg/lBQnqj48 - 99 mg/dLOhioHealthHCO3 [Moles/Vol]24 mmol/L21 - 32 mmol/LOhioHealthInterpretation and review of laboratory resultsAbnormal OhioHealthPhosphate [Mass/Vol]3 mg/dL2.7 - 4.5 mg/dLOhioHealthPotassium [Moles/Vol]4.1 mmol/L3.5 - 5.1 mmol/LOhioHealthSodium [Moles/Vol]139 mmol/L135 - 145 mmol/LOhioHealthUrea nitrogen [Mass/Vol]29 mg/dLHigh8 - 25 mg/dLOhioHealth Urea nitrogen/Creatinine [Mass ratio]17.4 mg/mg10.0 - 20.0OhioHealthOhioHealth OhioHealthWound Aerobic And Anaerobic CultureOrdered By: Zayda Smith on 01-99-4837Dhgynzuh identified Aer cx Nom (Unsp spec)No Growth after 5 days OhioHealthMicroscopic observation Gram stain Nom (Unsp spec)Few WBCOhioHealth Microscopic observation Gram stain Nom (Unsp spec)Many RBCOhioHealthMicroscopic observation Gram stain Nom (Unsp spec)No Organisms SeenOhioHealthOhioHealthCBCon 90-13-2878LPZW NRBC0.0 %NormalSelect Specialty Hospital - Beech GroveComment on above:Performed By: #### [id number] ####[facility] [address] [place], [place] [address] Abbi Choudhary M.D. [id number] NRBC ABS COUNT0.00 K/mcLNormal0.00-0.00[facility] Bee[facility] GroveComment on above:Performed By: #### 10991 ####[facility] [address] [place], [place] [address] Abbi Choudhary M.D. [id number] distribution width (RBC) [Ratio]12.7 %Mdgwfx04.6-14.8[facility] Bee[facility] GroveComment on above: Performed By: #### 76657 ####[facility] [address] [place], [place] [address] Abbi Choudhary M.D. [id number] (Bld) [Volume fraction]28.0 %Low36.0-46.0 [facility] Bee[facility] GroveComment on above:Performed By: #### 89963 ####[facility] [address] [address] Abbi Choudhary M.D. [id number] (Bld) [Mass/Vol]8.8 g/dLLow12.0-16.0[facility] GroveComment on above: Performed By: #### [id number] ####[facility] [address] [address] Abbi Choudhary M.D. [id number] (RBC) [Entitic mass]30.6 iePsqcab19.0-34.0[facility] GroveComment on above:Performed By: #### 06191 ####[facility] [address] [address] Abbi Choudhary M.D. [id number] (RBC) [Entitic vol]97.2 bNFubyzx90.0-100.0[facility] GroveComment on above: Performed By: #### 70230 ####[facility] [address] [address] Abbi Choudhary M.D. [id number] CORPUSCULAR HEMOGLOBIN CONC31.4 g/dLNormal 31.0-37.0[facility] GroveComment on above:Performed By: #### 87167 ####[facility] [address] [address] Abbi Choudhary M.D. 36D0 [id number] mean volume (Bld) [Entitic vol]9.5 fLNormal9.4-12.4[facility] GroveComment on above:Performed By: #### 40605 ####[facility] [address] [address] Abbi Choudhary M.D. [id number] (Bld) [#/Vol]264 10*3/qWXuneez895-493BbvigcSelect Specialty Hospital - Beech GroveComment on above:Performed By: #### [id number] ####[facility] [address] [place], [place] [address] Abbi Choudhary M.D. [id number] (Bld) [#/Vol]2.88 10*6/uLLow4.00-5.20[facility] Comment on above:Performed By: #### 30581 ####[facility] [address] [place], [place] [address] Abbi Choudhary M.D. [id number] (Bld) [#/Vol]7.18 10*3/uLNormal 4.50-11.00[facility] GroveComment on above:Performed By: #### [id number] ####[facility] [address] [address] Abbi Choudhary M.D. 36D0 [id number] panel Auto (Bld)on 40-90-9577Ifqbruicsop distribution width (RBC) [Entitic vol]12.7 %11.6 - 14.8 %OhioHealthHematocrit (Bld) [Volume fraction]28 % Low36.0 - 46.0 %OhioHealthHemoglobin (Bld) [Mass/Vol]8.8 g/dLLow12.0 - 16.0 g/dL OhioHealthInterpretation and review of laboratory resultsAbnormalOhioHealthMCH (RBC) [Entitic mass]30.6 pg26.0 - 34.0 pgOhioHealthMCHC (RBC) [Mass/Vol]31.4 g/dL31.0 - 37.0 g/dLOhioHealthMCV (RBC) [Entitic vol]97.2 fL80.0 - 100.0 fL OhioHealthNucleated RBC (Bld) [#/Vol]0 10*3/uLOhioHealthNucleated RBC/100 WBC (Bld) [Ratio]0 %OhioHealthPlatelet mean volume (Bld) [Entitic vol]9.5 fL9.4 - 12.4 fLOhioHealthPlatelets (Bld) [#/Vol]264 10*3/uLOhioHealthRBC (Bld) [#/Vol] 2.88 10*6/uLLowOhioHealthWBC (Bld) [#/Vol]7.18 10*3/uLOhioHealthOhioMercy Health [facility] Glucose (Bld) [Mass/Vol]on 98-58-3760Dowpynp [Mass/Vol]245 mg/zMSzem10 - 99 mg/dLOhioHealthInterpretation and review of laboratory resultsAbnormOhioHealth [facility] OhioHealthGlucose [Mass/Vol]172 mg/vEZaew59 - 99 mg/dLOhioHealthInterpretation and review of laboratory resultsAbnormalOSalem City HospitalioHealthGlucose [Mass/Vol] 177 mg/gWAymy14 - 99 mg/dLOhioHealthInterpretation and review of laboratory resultsAbnormalOhiMDealNorwalk Memorial HospitalioHealthGlucose [Mass/Vol]186 mg/nSNqeb67 - 99 mg/dL OhioHealthInterpretation and review of laboratory resultsAbnormCleveland Clinic Foundationeal OhioHealthGlucose [Mass/Vol]268 mg/sFWkot14 - 99 mg/dLOhioHealthInterpretation and review of laboratory resultsAbnoAultman Alliance Community Hospital GLUCOSE [facility] 86-30-1947Hhtxtca [Mass/Vol]245 mg/rXXcnf19-04Rceook Red Bay HospitalComment on above:Performed By: #### [id number] ####[facility] [address] [place], [place] [address] Abbi Choudhary M.D. [id number] [Mass/Vol]172 mg/vEBzpg44-58Iubksg Red Bay HospitalComment on above:Performed By: #### [id number] ####[facility] [address] [place], [place] [address] Abbi Choudhary M.D. [id number] [Mass/Vol]177 mg/wSLkvb10-29WacdpsColumbus Regional HealthComment on above:Performed By: #### [id number] ####[facility] [address] [place], [place] [address] Abbi Choudhary M.D. [id number] [Mass/Vol]186 mg/qTCfaw11-75MtlswyColumbus Regional Health Comment on above:Performed By: #### [id number] ####[facility] [address] [place], [place] [address] Abbi Choudhary M.D. [id number] [Mass/Vol]268 mg/yKHvrs72-95 [facility] GroveComment on above:Performed By: #### [id number] #### LAB [address] [place], [place] Julio Choudhary M.D. [id number] FUNCTION PANELon 67-75-5124Kzpmlbg [Mass/Vol]3.0 g/dLLow3.2-5.2MColumbus Regional HealthComment on above:Order Comment: [facility] has implemented the eGFR calculation approach that does not have a coefficient for race that conforms to the NKF-ASN Task Force Recommendations.Performed By: #### [id number] #### LAB [address] [address] Abbi Choudhary M.D. [id number] gap [Moles/Vol]14 mmol/TGlahld70-70TnliizSelect Specialty Hospital - [facility] [place] Comment on above:Order Comment: [facility] has implemented the eGFR calculation approach that does not have a coefficient for race that conforms to the NKF-ASN Task Force Recommendations.Performed By: #### [id number] #### LAB [address] [place], [place] [address] Abbi Choudhary M.D. 36D0 408211Klhqejq [Mass/Vol]8.7 mg/dLNormal8.4-10.2MRiley Hospital for Children on above:Order Comment: [facility] has implemented the eGFR calculation approach that does not have a coefficient for race that conforms to the NKF-ASN Task Force Recommendations.Performed By: #### [id number] #### LAB [address] [place], [place] [address] Abbi Choudhary M.D. [id number] [Moles/Vol]108 mmol/DYluvbl57-014HvpjngSelect Specialty Hospital - Beech GroveComment on above:Order Comment: [facility] has implemented the eGFR calculation approach that does not have a coefficient for race that conforms to the NKF-ASN Task Force Recommendations.Performed By: #### [id number] ####[facility] [address] [place], [place] [address] Abbi Choudhary M.D. [id number] [Mass/Vol]2.19 mg/dLHigh0.40-1.10[facility] Health Crown Pointment on above:Order Comment: [facility] has implemented the eGFR calculation approach that does not have a coefficient for race that conforms to the NKF-ASN Task Force Recommendations.Performed By: #### [id number] ####[facility] [address] [address] Abbi Choudhary M.D. [id number] mL/min/1.73 m2Low>=60 [facility] on above:Order Comment: [facility] has implemented the eGFR calculation approach that does not have a coefficient for race that conforms to the NKF-ASN Task Force Recommendations. Result Comment: Estimated GFR was calculated using the 2020 CKD-EPI creatinine equation.Performed By: #### [id number] ####[facility] [address] [address] Abbi Choudhary M.D. [id number] [Mass/Vol]288 mg/vJWyqf61-04JefrgaRiley Hospital for Children on above:Order Comment: [facility] has implemented the eGFR calculation approach that does not have a coefficient for race that conforms to the NKF-ASN Task Force Recommendations.Performed By: #### [id number] ####[facility] [address] [address] Abbi Choudhary M.D. [id number] (Bld) [Moles/Vol]20 mmol/ERxs39-93BxpocfSelect Specialty Hospital - Beech Grove Comment on above:Order Comment: [facility] has implemented the eGFR calculation approach that does not have a coefficient for race that conforms to the NKF-ASN Task Force Recommendations.Performed By: #### [id number] ####[facility] [address] [address] Abbi Choudhary M.D. 36D0 [id number] [Mass/Vol]4.1 mg/dLNormal2.7-4.5[facility] on above:Order Comment: [facility] has implemented the eGFR calculation approach that does not have a coefficient for race that conforms to the NKF-ASN Task Force Recommendations.Performed By: #### [id number] ####[facility] [address] [address] Abbi Choudhary M.D. [id number] [Moles/Vol]4.8 mmol/LNormal3.5-5.1MRiley Hospital for Children on above:Order Comment: [facility] has implemented the eGFR calculation approach that does not have a coefficient for race that conforms to the NKF-ASN Task Force Recommendations.Performed By: #### [id number] ####[facility] [address] [address] Abbi Choudhary M.D. [id number] [Moles/Vol]137 mmol/LMgkjcm991-192FbwoxhMargaret Mary Community Hospital on above:Order Comment: [facility] has implemented the eGFR calculation approach that does not have a coefficient for race that conforms to the NKF-ASN Task Force Recommendations.Performed By: #### [id number] ####[facility] [address] [address] Abbi Choudhary M.D. [id number] nitrogen [Mass/Vol]36 mg/dLHigh8-25[facility] on above:Order Comment: [facility] has implemented the eGFR calculation approach that does not have a coefficient for race that conforms to the NKF-ASN Task Force Recommendations.Performed By: #### [id number] ####[facility] [address] [address] Abbi Choudhary M.D. [id number] nitrogen/Creatinine [Mass ratio]16.4 mg/aiYvnnav07.0-20.0[facility] on above:Order Comment: [facility] has implemented the eGFR calculation approach that does not have a coefficient for race that conforms to the NKF-ASN Task Force Recommendations.Performed By: #### [id number] ####[facility] [address] [address] Abbi Choudhary M.D. [id number] function 2000 panel on 51-26-8802Uqbpaxi [Mass/Vol]3 g/dLLow3.2 - 5.2 g/dLOhioHealthAnion gap [Moles/Vol]14 mmol/L10 - 20 mmol/LOhioHealthCalcium [Mass/Vol]8.7 mg/dL8.4 - 10.2 mg/dLOhioHealthChloride [Moles/Vol]108 mmol/L98 - 108 mmol/LOhioHealth Creatinine [Mass/Vol]2.19 mg/dLHigh0.40 - 1.10 mg/dLOhioHealthGFR/1.73 sq M.predicted CKD-EPI (S/P/Bld) [Vol rate/Area]28Low- PINFOhioHealthGlucose [Mass/Vol]288 mg/zXXpzs68 - 99 mg/dLOhioHealthHCO3 [Moles/Vol]20 mmol/LLow21 - 32 mmol/LOhioHealthInterpretation and review of laboratory resultsAbnormal OhioHealthPhosphate [Mass/Vol]4.1 mg/dL2.7 - 4.5 mg/dLOhioHealthPotassium [Moles/Vol]4.8 mmol/L3.5 - 5.1 mmol/LOhioHealthSodium [Moles/Vol]137 mmol/L135 - 145 mmol/LOhioHealthUrea nitrogen [Mass/Vol]36 mg/dLHigh8 - 25 mg/dLOhioHealth Urea nitrogen/Creatinine [Mass ratio]16.4 mg/mg10.0 - 20.0OhioHealthOhioHealth [facility] 66-87-3155OVUG NRBC0.0 %NormalSelect Specialty Hospital - Beech GroveComment on above:Performed By: #### [id number] ####[facility] [address] [address] Abbi Choudhary M.D. [id number] NRBC ABS COUNT0.00 K/mcLNormal0.00-0.00 [facility] GroveComment on above:Performed By: #### [id number] ####[facility] [address] [place], [place] [address] Abbi Choudhary M.D. [id number] distribution width (RBC) [Ratio]13.1 %Iimjzg25.6-14.8[facility] Comment on above:Performed By: #### [id number] #### LAB [address] [place], [place] [address] Abbi Choudhary M.D. [id number] (Bld) [Volume fraction] 29.5 %Low36.0-46.0[facility] GroveComment on above:Performed By: #### [id number] ####[facility] [address] [address] Abbi Choudhary M.D. [id number] (Bld) [Mass/Vol]9.2 g/dLLow12.0-16.0[facility] Comment on above:Performed By: #### [id number] ####[facility] [address] [address] Abbi Choudhary M.D. [id number] (RBC) [Entitic mass]30.8 pg Yrcwpx10.0-34.0[facility] Bee[facility] GroveComment on above:Performed By: #### [id number] ####[facility] [address] [address] Abbi Choudhary M.D. 36D0 [id number] (RBC) [Entitic vol]98.7 fWEbdrmt32.0-100.0[facility] Comment on above:Performed By: #### [id number] ####[facility] [address] [address] Abbi Choudhary M.D. [id number] CORPUSCULAR HEMOGLOBIN CONC31.2 g/bWRzfygv90.0-37.0[facility] GroveComment on above:Performed By: #### [id number] ####[facility] [address] [address] Abbi Choudhary M.D. [id number] mean volume (Bld) [Entitic vol]9.4 fLNormal9.4-12.4[facility] GroveComment on above:Performed By: #### [id number] ####[facility] [address] [address] Abbi Choudhary M.D. [id number] (Bld) [#/Vol]282 10*3/nFIgmzqp173-469JaguyhSelect Specialty Hospital - Beech GroveComment on above:Performed By: #### [id number] ####[facility] [address] [place], [place] [address] Abbi Choudhary M.D. [id number] (Bld) [#/Vol]2.99 10*6/uLLow4.00-5.20[facility] GroveComment on above:Performed By: #### [id number] ####[facility] [address] [address] Abbi Choudhary M.D. [id number] (Bld) [#/Vol]7.07 10*3/uL Normal4.50-11.00[facility] GroveComment on above:Performed By: #### 14020 ####[facility] [address] [address] Abbi Choudhary M.D. 36D0 [id number] panel Auto (Bld)on 75-78-6193Xqdhburyptw distribution width (RBC) [Entitic vol]13.1 %11.6 - 14.8 %OhioHealthHematocrit (Bld) [Volume fraction]29.5 %Low36.0 - 46.0 %OhioHealthHemoglobin (Bld) [Mass/Vol]9.2 g/dLLow12.0 - 16.0 g/dLOhioHealthInterpretation and review of laboratory resultsAbnormalOhioHealth MCH (RBC) [Entitic mass]30.8 pg26.0 - 34.0 pgOhioHealthMCHC (RBC) [Mass/Vol]31.2 g/dL31.0 - 37.0 g/dLOhioHealthMCV (RBC) [Entitic vol]98.7 fL80.0 - 100.0 fL OhioHealthNucleated RBC (Bld) [#/Vol]0 10*3/uLOhioHealthNucleated RBC/100 WBC (Bld) [Ratio]0 %OhioHealthPlatelet mean volume (Bld) [Entitic vol]9.4 fL9.4 - 12.4 fLOhioHealthPlatelets (Bld) [#/Vol]282 10*3/uLOhioHealthRBC (Bld) [#/Vol] 2.99 10*6/uLLowOhioHealthWBC (Bld) [#/Vol]7.07 10*3/uLOhioHealthOhioHealth Glucose (Bld) [Mass/Vol]on 07-20-6193Kkkxhox [Mass/Vol]170 mg/cQBnft69 - 99 mg/dLOhioHealthInterpretation and review of laboratory resultsAbnormalOLouis Stokes Cleveland VA Medical Centereal OhioHealthGlucose [Mass/Vol]226 mg/mOZxsg64 - 99 mg/dLOhioHealthInterpretation and review of laboratory resultsAbnormalOhioHealthOhioHealthGlucose [Mass/Vol] 248 mg/aCUzts25 - 99 mg/dLOhioHealthInterpretation and review of laboratory resultsAbnormalOhioHealthOhioHealthGlucose [Mass/Vol]275 mg/hIVvtv66 - 99 mg/dL OhioHealthInterpretation and review of laboratory resultsAbnormalOhiMDeal OhioHealthGlucose [Mass/Vol]274 mg/qLMaxz26 - 99 mg/dLOhioHealthInterpretation and review of laboratory resultsAbnormAdena Health SystemioOhio State Health System GLUCOSE [facility] 82-98-2003Zldwvni [Mass/Vol]170 mg/cYBvdp30-34Zatqnl [facility] HospitalComment on above:Performed By: #### [id number] ####[facility] [address] [place], [place] [address] Abbi Choudhary M.D. [id number] [Mass/Vol]226 mg/oCEhou65-77Bazksz [facility] HospitalComment on above:Performed By: #### [id number] ####[facility] [address] [place], [place] [address] Abbi Choudhary M.D. [id number] [Mass/Vol]248 mg/xLHghy28-84Stntyl [facility] HospitalComment on above:Performed By: #### [id number] ####[facility] [address] [place], [place] [address] Abbi Choudhary M.D. [id number] [Mass/Vol]274 mg/cRBpzi14-82PymxvpColumbus Regional Health Comment on above:Performed By: #### [id number] ####[facility] [address] [address]Alisia Choudhary M.D. [id number] FUNCTION PANELon 03-28-2024 Albumin [Mass/Vol]3.3 g/dLNormal3.2-5.2MColumbus Regional HealthComascension standish hospital on above: Order Comment: [facility] has implemented the eGFR calculation approach that does not have a coefficient for race that conforms to the NKF-ASN Task Force Recommendations.Performed By: #### [id number] ####[facility] [address] [address] Abbi Choudhary M.D. [id number] gap [Moles/Vol]15 mmol/LSaudsc12-30VseeidMargaret Mary Community Hospital on above:Order Comment: [facility] has implemented the eGFR calculation approach that does not have a coefficient for race that conforms to the NKF-ASN Task Force Recommendations.Performed By: #### [id number] ####[facility] [address] [address] Abbi Choudhary M.D. [id number] [Mass/Vol]8.5 mg/dLNormal8.4-10.2MRiley Hospital for Children on above:Order Comment: [facility] has implemented the eGFR calculation approach that does not have a coefficient for race that conforms to the NKF-ASN Task Force Recommendations.Performed By: #### [id number] ####[facility] [address] [address] Abbi Choudhary M.D. [id number] [Moles/Vol]107 mmol/L Ookdjf60-863NgyyzcSelect Specialty Hospital - Beech GroveComascension standish hospital on above:Order Comment: [facility] has implemented the eGFR calculation approach that does not have a coefficient for race that conforms to the NKF-ASN Task Force Recommendations.Performed By: #### [id number] ####[facility] [address] [address] Abbi Choudhary M.D. [id number] [Mass/Vol]2.47 mg/dLHigh 0.40-1.10[facility] on above:Order Comment: [facility] has implemented the eGFR calculation approach that does not have a coefficient for race that conforms to the NKF-ASN Task Force Recommendations.Performed By: #### [id number] ####[facility] [address] [address] Abbi Choudhary M.D. [id number] mL/min/1.73 m2Low>=60[facility] on above:Order Comment: [facility] has implemented the eGFR calculation approach that does not have a coefficient for race that conforms to the NKF-ASN Task Force Recommendations.Result Comment: Estimated GFR was calculated using the 2020 CKD-EPI creatinine equation. Performed By: #### [id number] ####[facility] [address] [place] [address] Abbi Choudhary M.D. [id number] [Mass/Vol]281 mg/sIRcam13-87SkkmrlRiley Hospital for Children on above:Order Comment: [facility] has implemented the eGFR calculation approach that does not have a coefficient for race that conforms to the NKF-ASN Task Force Recommendations.Performed By: #### [id number] ####[facility] [address] [address] Abbi Choudhary M.D. [id number] (Bld) [Moles/Vol]20 mmol/UPkh49-86ActxvcMargaret Mary Community Hospital on above:Order Comment: [facility] has implemented the eGFR calculation approach that does not have a coefficient for race that conforms to the NKF-ASN Task Force Recommendations.Performed By: #### [id number] ####[facility] [address] [address] Abbi Choudhary M.D. [id number] [Mass/Vol]4.8 mg/dLWyoming General Hospital2.7-4.5[facility] on above:Order Comment: [facility] has implemented the eGFR calculation approach that does not have a coefficient for race that conforms to the NKF-ASN Task Force Recommendations.Performed By: #### [id number] ####[facility] [address] [address] Abbi Choudhary M.D. [id number] [Moles/Vol]5.3 mmol/LHigh3.5-5.1MRiley Hospital for Children on above:Order Comment: [facility] has implemented the eGFR calculation approach that does not have a coefficient for race that conforms to the NKF-ASN Task Force Recommendations.Performed By: #### [id number] ####[facility] [address] [place], [place] [address] Abbi Choudhary M.D. [id number] [Moles/Vol]137 mmol/L Hhsahb796-920SbnzngMargaret Mary Community Hospital on above:Order Comment: [facility] has implemented the eGFR calculation approach that does not have a coefficient for race that conforms to the NKF-ASN Task Force Recommendations.Performed By: #### [id number] ####[facility] [address] [address] Abbi Choudhary M.D. [id number] nitrogen [Mass/Vol]34 mg/dLHigh 8-25[facility] on above:Order Comment: [facility] has implemented the eGFR calculation approach that does not have a coefficient for race that conforms to the NKF-ASN Task Force Recommendations. Performed By: #### [id number] ####[facility] [address] [address] Abbi Choudhary M.D. [id number] nitrogen/Creatinine [Mass ratio]13.8 mg/mgNormal 10.0-20.0[facility] on above:Order Comment: [facility] has implemented the eGFR calculation approach that does not have a coefficient for race that conforms to the NKF-ASN Task Force Recommendations.Performed By: #### [id number] ####[facility] [address] [place], [place] [address] Abbi Choudhary M.D. [id number] function 2000 panel 24-54-6050Bazawjb [Mass/Vol]3.3 g/dL3.2 - 5.2 g/dLOhioHealthAnion gap [Moles/Vol]15 mmol/L10 - 20 mmol/LOhioHealthCalcium [Mass/Vol]8.5 mg/dL8.4 - 10.2 mg/dLOhioHealthChloride [Moles/Vol]107 mmol/L98 - 108 mmol/LOhioHealth Creatinine [Mass/Vol]2.47 mg/dLHigh0.40 - 1.10 mg/dLOhioHealthGFR/1.73 sq M.predicted CKD-EPI (S/P/Bld) [Vol rate/Area]24Low- PINFOhioHealthGlucose [Mass/Vol]281 mg/dKBihy71 - 99 mg/dLOhioHealthHCO3 [Moles/Vol]20 mmol/LLow21 - 32 mmol/LOhioHealthInterpretation and review of laboratory resultsAbnormal OhioHealthPhosphate [Mass/Vol]4.8 mg/dLHigh2.7 - 4.5 mg/dLOhioHealthPotassium [Moles/Vol]5.3 mmol/LHigh3.5 - 5.1 mmol/LOhioHealthSodium [Moles/Vol]137 mmol/L 135 - 145 mmol/LOhioHealthUrea nitrogen [Mass/Vol]34 mg/dLHigh8 - 25 mg/dL OhioHealthUrea nitrogen/Creatinine [Mass ratio]13.8 mg/mg10.0 - 20.0OhioHealth OhioHealthOhioHealthUS Kidney - bilateral and Urinary bladderon 33-65-6414JB RIS GE RISOhioHealthUS Kidney - bilateral and Urinary bladderOrdered By: Kj Chiu on 61-12-7653JjweYsrdci Work Phone: Bacteria identified Aer cx Nom (Unsp spec)Ordered By: Keyla Guerrero on 13-26-5431Rnadvhjwcdfjmt and review of laboratory results AbnormalOhioHealthKyioHealthCBCon 20-47-0954JEAM NRBC0.0 %NormalSelect Specialty Hospital - Beech GroveComment on above:Performed By: #### [id number] #### LAB [address] [place], [place] [address] Abbi Choudhary M.D. [id number] NRBC ABS COUNT0.00 K/mcL Normal0.00-0.00[facility] Bee[facility] GroveComment on above:Performed By: #### 73854 ####[facility] [address] [place], [place] [address] Abbi Choudhary M.D. 36D0 841675Vaihmujcwgd distribution width (RBC) [Ratio]13.2 %Iohouw49.6-14.8[facility] Bee[facility] GroveComment on above:Performed By: #### 11562 ####[facility] [address] [address] Abbi Choudhary M.D. [id number] (Bld) [Volume fraction]30.8 %Low36.0-46.0[facility] GroveComment on above: Performed By: #### 90587 ####[facility] [address] [address] Abbi Choudhary M.D. [id number] (Bld) [Mass/Vol]9.6 g/dLLow12.0-16.0[facility] GroveComment on above:Performed By: #### [id number] ####[facility] [address] [address] Abbi Choudhary M.D. [id number] (RBC) [Entitic mass]30.6 gaVlhmpo19.0-34.0[facility] GroveComment on above: Performed By: #### [id number] ####[facility] [address] [address] Abbi Choudhary M.D. [id number] (RBC) [Entitic vol]98.1 xDAryezo57.0-100.0[facility] GroveComment on above:Performed By: #### 94862 ####[facility] [address] [address] Abbi Choudhary M.D. [id number] CORPUSCULAR HEMOGLOBIN CONC31.2 g/gGNaqclr34.0-37.0[facility] GroveComment on above: Performed By: #### [id number] ####[facility] [address] [address] Abbi Choudhary M.D. [id number] mean volume (Bld) [Entitic vol]9.4 fLNormal 9.4-12.4[facility] GroveComment on above:Performed By: #### [id number] ####[facility] [address] [place], [place] [address] Abbi Choudhary M.D. [id number] Platelets (Bld) [#/Vol]308 10*3/fWOvihnx113-280BksiazSelect Specialty Hospital - Beech GroveComment on above:Performed By: #### [id number] ####[facility] [address] [address] Abbi Choudhary M.D. [id number] (Bld) [#/Vol]3.14 10*6/uLLow4.00-5.20 [facility]Com[facility] on above:Performed By: #### [id number] ####[facility] [address] [address] Abbi Choudhary M.D. [id number] (Bld) [#/Vol]7.80 10*3/uLNormal4.50-11.00[facility] GroveComasc[facility] on above: Performed By: #### [id number] ####[facility] [address] [address] Abbi Choudhary M.D. [id number] panel Auto (Bld)on 43-31-0809Ghkqtixboga distribution width (RBC) [Entitic vol]13.2 %11.6 - 14.8 %OhioHealthHematocrit (Bld) [Volume fraction]30.8 %Low36.0 - 46.0 %OhioHealthHemoglobin (Bld) [Mass/Vol]9.6 g/dLLow12.0 - 16.0 g/dLOhioHealthInterpretation and review of laboratory resultsAbnormalOhioHealthMCH (RBC) [Entitic mass]30.6 pg26.0 - 34.0 pgOhioHealthMCHC (RBC) [Mass/Vol]31.2 g/dL31.0 - 37.0 g/dLOhioHealthMCV (RBC) [Entitic vol]98.1 fL80.0 - 100.0 fLOhioHealthNucleated RBC (Bld) [#/Vol]0 10*3/uLOhioHealthNucleated RBC/100 WBC (Bld) [Ratio]0 %OhioHealthPlatelet mean volume (Bld) [Entitic vol]9.4 fL9.4 - 12.4 fLOhioHealthPlatelets (Bld) [#/Vol] 308 10*3/uLOhioHealthRBC (Bld) [#/Vol]3.14 10*6/uLLowOhioHealthWBC (Bld) [#/Vol] 7.8 10*3/uLOhioHealthOhioHealthCK [Catalytic activity/Vol]on 03-27-2024 Interpretation and review of laboratory resultsNormalOCleveland Clinic Medina Hospital COMPREHENSIVE METABOLIC PANELon 16-63-2704Iwiplxu [Mass/Vol]3.1 g/dLLow3.2-5.2 [facility] GroveComment on above:Order Comment: [facility] has implemented the eGFR calculation approach that does not have a coefficient for race that conforms to the NKF-ASN Task Force Recommendations. Performed By: #### [id number] ####[facility] [address] [address] Abbi Choudhary M.D. [id number] [Catalytic activity/Vol]91 U/YFuhfuy11-877HabpfdSelect Specialty Hospital - Beech GroveComment on above:Order Comment: [facility] has implemented the eGFR calculation approach that does not have a coefficient for race that conforms to the NKF-ASN Task Force Recommendations.Performed By: #### 74480 #### LAB [address] [address] Abbi Choudhary M.D. [id number] [Catalytic activity/Vol]11 U/LNormal0-35 U/LMColumbus Regional HealthComment on above:Order Comment: [facility] has implemented the eGFR calculation approach that does not have a coefficient for race that conforms to the NKF-ASN Task Force Recommendations.Performed By: #### 49090 ####[facility] [address] [place], [place] [address] Abbi Choudhary M.D. [id number] gap [Moles/Vol]14 mmol/VYqyxbi05-70CfqscsSelect Specialty Hospital - [facility] Comment on above:Order Comment: [facility] has implemented the eGFR calculation approach that does not have a coefficient for race that conforms to the NKF-ASN Task Force Recommendations.Performed By: #### 00068 ####[facility] [address] [address] Abbi Choudhary M.D. [id number] [id number] [Catalytic activity/Vol]11 U/LNormal0-35 U/LMColumbus Regional Health Comment on above:Order Comment: [facility] has implemented the eGFR calculation approach that does not have a coefficient for race that conforms to the NKF-ASN Task Force Recommendations.Performed By: #### 01144 ####[facility] [address] [address] Abbi Choudhary M.D. [id number] [Mass/Vol]0.3 mg/dLNormal0.0-1.3MColumbus Regional HealthComment on above:Order Comment: [facility] has implemented the eGFR calculation approach that does not have a coefficient for race that conforms to the NKF-ASN Task Force Recommendations.Performed By: #### [id number] ####[facility] [address] [address] Abbi Choudhary M.D. [id number] [Mass/Vol]8.2 mg/dLLow8.4-10.2MColumbus Regional HealthComment on above:Order Comment: [facility] has implemented the eGFR calculation approach that does not have a coefficient for race that conforms to the NKF-ASN Task Force Recommendations.Performed By: #### [id number] ####[facility] [address] [address] Abbi Choudhary M.D. [id number] [Moles/Vol]110 mmol/QMcyj16-216IbhewgSelect Specialty Hospital - Beech GroveComment on above:Order Comment: [facility] has implemented the eGFR calculation approach that does not have a coefficient for race that conforms to the NKF-ASN Task Force Recommendations.Performed By: #### 82488 ####[facility] [address] [address] Abbi Choudhary M.D. [id number] [Mass/Vol]2.53 mg/dLHigh0.40-1.10[facility] GroveComment on above:Order Comment: [facility] has implemented the eGFR calculation approach that does not have a coefficient for race that conforms to the NKF-ASN Task Force Recommendations.Performed By: #### [id number] ####[facility] [address] [address] Abbi Choudhary M.D. [id number] mL/min/1.73 m2Low>=60 [facility] GroveComment on above:Order Comment: [facility] has implemented the eGFR calculation approach that does not have a coefficient for race that conforms to the NKF-ASN Task Force Recommendations. Result Comment: Estimated GFR was calculated using the 2020 CKD-EPI creatinine equation.Performed By: #### 68639 #### LAB [address] [address] Abbi Choudhary M.D. [id number] [Mass/Vol]161 mg/jFRsbm12-56Rafmnc[address] [place], [place] [address] on above:Order Comment: [facility] has implemented the eGFR calculation approach that does not have a coefficient for race that conforms to the NKF-ASN Task Force Recommendations.Performed By: #### [id number] ####[facility] [address] [place] [address] Abbi Choudhary M.D. [id number] (Bld) [Moles/Vol]21 mmol/ZKcxiwa85-27DnomrpSelect Specialty Hospital - [facility] Comment on above:Order Comment: [facility] has implemented the eGFR calculation approach that does not have a coefficient for race that conforms to the NKF-ASN Task Force Recommendations.Performed By: #### [id number] ####[facility] [address] [address] Abbi Choudhary M.D. 36D0 [id number] [Moles/Vol]4.8 mmol/LNormal3.5-5.1MRiley Hospital for Children on above:Order Comment: [facility] has implemented the eGFR calculation approach that does not have a coefficient for race that conforms to the NKF-ASN Task Force Recommendations.Performed By: #### 77032 ####[facility] [address] [place] [address] Abbi Choudhary M.D. [id number] [Mass/Vol]5.9 g/dLLow6.0-8.0[facility] on above:Order Comment: [facility] has implemented the eGFR calculation approach that does not have a coefficient for race that conforms to the NKF-ASN Task Force Recommendations.Performed By: #### [id number] ####[facility] [address] [address] Abbi Choudhary M.D. [id number] [Moles/Vol]140 mmol/GIrbsme736-653ZuwuhjMargaret Mary Community Hospital on above:Order Comment: [facility] has implemented the eGFR calculation approach that does not have a coefficient for race that conforms to the NKF-ASN Task Force Recommendations.Performed By: #### [id number] #### LAB [address] [address] Abbi Choudhary M.D. [id number] nitrogen [Mass/Vol]32 mg/dLHigh8-25[facility] on above:Order Comment: [facility] has implemented the eGFR calculation approach that does not have a coefficient for race that conforms to the NKF-ASN Task Force Recommendations.Performed By: #### 70415 #### LAB [address] [address] Abbi Choudhary M.D. [id number] nitrogen/Creatinine [Mass ratio]12.6 mg/qqQabibe61.0-20.0[facility] on above:Order Comment: [facility] has implemented the eGFR calculation approach that does not have a coefficient for race that conforms to the NKF-ASN Task Force Recommendations.Performed By: #### [id number] ####[facility] [address] [address] Abbi Choudhary M.D. [id number] 03-27-2024 CONSULTNoDeKalb Memorial HospitalCONSULTNoDeKalb Memorial HospitalCPKon 25-07-6327YFQ67 U/GWpcpfe54-244UbtvslMargaret Mary Community Hospital on above:Performed By: #### 30178 ####[facility] [address] [address] Abbi Choudhary M.D. [id number] NO MBon 94-63-2950HC [Catalytic activity/Vol]56 U/L40 - 170 U/LOhioHealthComprehensive metabolic 2000 panelon 09-34-4504Zxtvhta [Mass/Vol] 3.1 g/dLLow3.2 - 5.2 g/dLOhioHealthALP [Catalytic activity/Vol]91 U/L40 - 150 U/LOhioHealthALT [Catalytic activity/Vol]11 U/L0-35 U/LOhioHealthAnion gap [Moles/Vol]14 mmol/L10 - 20 mmol/LOhioHealthAST [Catalytic activity/Vol]11 U/L0- 35 U/LOhioHealthBilirubin [Mass/Vol]0.3 mg/dL0.0 - 1.3 mg/dLOhioHealthCalcium [Mass/Vol]8.2 mg/dLLow8.4 - 10.2 mg/dLOhioHealthChloride [Moles/Vol]110 mmol/L High98 - 108 mmol/LOhioHealthCreatinine [Mass/Vol]2.53 mg/dLHigh0.40 - 1.10 mg/dLOhioHealthGFR/1.73 sq M.predicted CKD-EPI (S/P/Bld) [Vol rate/Area]23Low- PINFOhioHealthGlucose [Mass/Vol]161 mg/yEHjeq21 - 99 mg/dLOhioHealthHCO3 [Moles/Vol]21 mmol/L21 - 32 mmol/LOhioHealthInterpretation and review of laboratory resultsAbnormalOhioHealthPotassium [Moles/Vol]4.8 mmol/L3.5 - 5.1 mmol/LOhioHealthProtein [Mass/Vol]5.9 g/dLLow6.0 - 8.0 g/dLOhioHealthSodium [Moles/Vol]140 mmol/L135 - 145 mmol/LOhioHealthUrea nitrogen [Mass/Vol]32 mg/dL High8 - 25 mg/dLOhioHealthUrea nitrogen/Creatinine [Mass ratio]12.6 mg/mg10.0 - 20.0OhioHealthOhioHealthOhioHealthGlucose (Bld) [Mass/Vol]on 16-97-8263Uopyzif [Mass/Vol]131 mg/oQUvhq36 - 99 mg/dLOhioHealthInterpretation and review of laboratory resultsAbnormalOhiMDealthOhioHealthGlucose [Mass/Vol]177 mg/hNQkpj63 - 99 mg/dLOhioHealthInterpretation and review of laboratory resultsAbnormal OhioHealthOhioHealthGlucose [Mass/Vol]223 mg/aLYcfn11 - 99 mg/dLOhioHealth Interpretation and review of laboratory resultsAbnormalOhiMDealthOhioHealth Glucose [Mass/Vol]267 mg/sOJukz09 - 99 mg/dLOhioHealthInterpretation and review of laboratory resultsAbnormalOhiMDealthOhioHealthGlucose [Mass/Vol]135 mg/dLHigh 65 - 99 mg/dLOhioHealthInterpretation and review of laboratory resultsAbnormal OhioHealthOhioHealthGlucose [Mass/Vol]275 mg/tVJhwf28 - 99 mg/dLOhioHealth Interpretation and review of laboratory resultsAbnormalOLouis Stokes Cleveland VA Medical CenterealNorwalk Memorial HospitalioOhio [facility] GLUCOSE [facility] 95-74-7129Zdhurgm [Mass/Vol]131 mg/pFItdm68-49Eaxfmk General HospitalComment on above:Performed By: #### [id number] ####[facility] [address] [address] Abbi Choudhary M.D. [id number] [Mass/Vol]177 mg/dL Amzs90-47Kmclyf General HospitalComment on above:Performed By: #### 55645 ####[facility] [address] [place], [place] [address] Abbi Choudhary M.D. 36D0 [id number] [Mass/Vol]223 mg/wTJmww75-45Rfsroy General HospitalComment on above:Performed By: #### 15595 ####[facility] [address] [place], [place] [address] Abbi Choudhary M.D. [id number] [Mass/Vol]267 mg/sMAlne99-95Zhnwiv General HospitalComment on above:Performed By: #### 93066 ####[facility] [address] [address] Abbi Choudhary M.D. [id number] [Mass/Vol]135 mg/iVOxng21-53RbsvhuColumbus Regional HealthComment on above:Performed By: #### 64971 ####[facility] [address] [place], [place] [address] Abbi Choudhary M.D. [id number] [Mass/Vol]275 mg/uGVuxh02-88Lrwfmx[address] Comment on above:Performed By: #### 64336 ####MGNic[facility] LAB [address] [address] Abbi Choudhary M.D. [id number] Kidney - bilateral and Urinary bladderon 22-95-6375Ixtmvxrrs Study observation (narrative)[facility] RENAL AND BLADDERon 22-61-6465JJ RENAL AND BLADDERNoDeKalb Memorial HospitalComment on above:Order Comment: Injury/Trauma or Illness?:Illness/OtherHow long have you had these symptoms (acute/chronic)?:UnknownReason for exam?:Renal failureHistory of cancer?:uSurgeries, chemotherapy, or radiation?:pacemakerType of Exam?:UnknownAdditional signs and symptoms?:noUrine Aerobic CultureOrdered By: Keyla Guerrero on 94-36-4519Obnaemem identified Aer cx Nom (Unsp spec) 50,000-100,000 CFU/mL Escherichia coliAbnormalOhioHealthXR CHEST LATERAL LEFTon 29-79-3273YR CHEST LATERAL LEFTWhite County Memorial HospitalComment on above: Order Comment: Injury/Trauma or Illness?:Illness/OtherHow long have you had these symptoms (acute/chronic)?:AcuteReason for exam?:Eval depth of port access needleHistory of cancer?:uSurgeries, chemotherapy, or radiation?:pacemakerType of Exam?:OngoingAdditional signs and symptoms?:unable to get blood returnXR CHEST PA/APon 41-75-9528AJ CHEST PA/APSelect Specialty Hospital - Northwest Indiana HospitalComment on above:Order Comment: Injury/Trauma or Illness?:Illness/OtherHow long have you had these symptoms (acute/chronic)?:AcuteReason for exam?:port varifictionHistory of cancer?:uSurgeries, chemotherapy, or radiat ion?:pacemakerType of Exam?:UnknownAdditional signs and symptoms?:noXR Chest AP left lateral-decubituson 06-22-9946TS [facility] Medical CenterRadiology Study observation (narrative)[facility]Mer[facility] Medical CenterXR Chest PA and Abdomen APon 38-39-4436TX [facility] GeneralRadiology Study observation (narrative)[facility] Chest PA and Abdomen APOrdered By: Jermaine Peralta on 53-79-6355SzumDjezfy Work Phone: BASIC METABOLIC PANELon 85-81-9963Nmnsr gap [Moles/Vol]16 mmol/AGfwyec37-21JlyzcqMargaret Mary Community Hospital on above:Order Comment: [facility] has implemented the eGFR calculation approach that does not have a coefficient for race that conforms to the NKF-ASN Task Force Recommendations.Performed By: #### 29246 ####[facility] [address] [place], [place] [address] Abbi Choudhary M.D. [id number] [Mass/Vol]8.3 mg/dLLow8.4-10.2MRiley Hospital for Children on above:Order Comment: [facility] has implemented the eGFR calculation approach that does not have a coefficient for race that conforms to the NKF-ASN Task Force Recommendations.Performed By: #### 79846 ####[facility] [address] [place], [place] [address] Abbi Choudhary M.D. [id number] [Moles/Vol]106 mmol/L Ckgllb91-436DazjdgMargaret Mary Community Hospital on above:Order Comment: [facility] has implemented the eGFR calculation approach that does not have a coefficient for race that conforms to the NKF-ASN Task Force Recommendations.Performed By: #### 46352 ####[facility] [address] [place], [place] [address] Abbi Choudhary M.D. [id number] [Mass/Vol]2.52 mg/dLHigh 0.40-1.10[facility] on above:Order Comment: [facility] has implemented the eGFR calculation approach that does not have a coefficient for race that conforms to the NKF-ASN Task Force Recommendations.Performed By: #### 23856 ####[facility] [address] [address] Abbi Choudhary M.D. [id number] mL/min/1.73 m2Low>=60[facility] on above:Order Comment: [facility] has implemented the eGFR calculation approach that does not have a coefficient for race that conforms to the NKF-ASN Task Force Recommendations.Result Comment: Estimated GFR was calculated using the 2020 CKD-EPI creatinine equation. Performed By: #### [id number] ####[facility] [address] [address] Abbi Choudhary M.D. [id number] [Mass/Vol]333 mg/dAXrip33-67XqggjjRiley Hospital for Children on above:Order Comment: [facility] has implemented the eGFR calculation approach that does not have a coefficient for race that conforms to the NKF-ASN Task Force Recommendations.Performed By: #### 38560 ####[facility] [address] [address] Abbi Choudhary M.D. [id number] (Bld) [Moles/Vol]20 mmol/HVgy79-87XnrlejMargaret Mary Community Hospital on above:Order Comment: [facility] has implemented the eGFR calculation approach that does not have a coefficient for race that conforms to the NKF-ASN Task Force Recommendations.Performed By: #### 23823 ####[facility] [address] [address] Abbi Choudhary M.D. [id number] [Moles/Vol]4.8 mmol/LNormal3.5-5.1MRiley Hospital for Children on above:Order Comment: [facility] has implemented the eGFR calculation approach that does not have a coefficient for race that conforms to the NKF-ASN Task Force Recommendations.Performed By: #### 12979 ####[facility] [address] [address] Abbi Choudhary M.D. [id number] [Moles/Vol]137 mmol/HJowmnu855-881UmxweoMargaret Mary Community Hospital on above:Order Comment: [facility] has implemented the eGFR calculation approach that does not have a coefficient for race that conforms to the NKF-ASN Task Force Recommendations.Performed By: #### 87294 #### LAB [address] [place], [place] [address] Abbi Choudhary M.D. [id number] nitrogen [Mass/Vol]30 mg/dLHigh8-25[facility] GroveComascension standish hospital on above:Order Comment: [facility] has implemented the eGFR calculation approach that does not have a coefficient for race that conforms to the NKF-ASN Task Force Recommendations.Performed By: #### 48010 ####[facility] [address] [address] Abbi Choudhary M.D. [id number] nitrogen/Creatinine [Mass ratio]11.9 mg/fpDsppgm99.0-20.0[facility] GroveComascension standish hospital on above:Order Comment: [facility] has implemented the eGFR calculation approach that does not have a coefficient for race that conforms to the NKF-ASN Task Force Recommendations.Performed By: #### 36384 ####[facility] [address] [place], [place] [address] Abbi Choudhary M.D. [id number]-VYVLWBPZIKSMVJAvc 07-73-7318AHON-HYDROXYBUTYRATE<Normal0.0-0.3MRiley Hospital for Children on above:Performed By: #### 39800 ####[facility] [address] [place], [place] [address] Abbi Choudhary M.D. [id number] metabolic 2000 panelOrdered By: Wai Villatoro on 61-21-2990Ntysc gap [Moles/Vol]16 mmol/L10 - 20 mmol/LOhioHealthCalcium [Mass/Vol]8.3 mg/dLLow8.4 - 10.2 mg/dLOhioHealthChloride [Moles/Vol]106 mmol/L98 - 108 mmol/LOhioHealthCreatinine [Mass/Vol]2.52 mg/dLHigh0.40 - 1.10 mg/dL OhioHealthGFR/1.73 sq M.predicted CKD-EPI (S/P/Bld) [Vol rate/Area]23Low- PINF OhioHealthGlucose [Mass/Vol]333 mg/cSNphn77 - 99 mg/dLOhioHealthHCO3 [Moles/Vol] 20 mmol/LLow21 - 32 mmol/LOhioHealthInterpretation and review of laboratory resultsAbnormalOhioHealthPotassium [Moles/Vol]4.8 mmol/L3.5 - 5.1 mmol/L OhioHealthSodium [Moles/Vol]137 mmol/L135 - 145 mmol/LOhioHealthUrea nitrogen [Mass/Vol]30 mg/dLHigh8 - 25 mg/dLOhioHealthUrea nitrogen/Creatinine [Mass ratio]11.9 mg/mg10.0 - 20.0OhioHealthOhioHealthOhioHealthBeta hydroxybutyrate [Moles/Vol]on 02-80-7968Waosbzdhnuljqd and review of laboratory resultsNormal OhioHealthOhioHealthBeta-Hydroxybutyrateon 00-06-7191Abaq hydroxybutyrate [Moles/Vol]mmol/L0.0 - 0.3 mmol/LOhioHealthCBC (INCLUDES DIFF/PLT)on 03-26-2024 Basophils (Bld) [#/Vol]0.073 10*3/uLNormal0-200Quest DiagnosticsComment on above:Performed By: #### 95222, 47086, 866, 899, 496, 6399, 15205 #### [facility] [address], [address] [place] [address] Relay Tester Helper: Dean Maddox MDBasophils/100 WBC (Bld)0.7 %NormalQuest DiagnosticsComment on above:Performed By: #### 97659, 38603, 866, 899, 496, 6399, 21771 #### [facility] [address], [address] [place] [address] Relay Tester Helper: Dean Maddox MDEosinophils (Bld) [#/Vol]0.354 10*3/uLNormal 15-500Quest DiagnosticsComment on above:Performed By: #### 88913, 69522, 866, 899, 496, 6399, 95406 #### [facility] of [address], [address] [place] [address] Relay Tester Helper: Dean Maddox MDEosinophils/100 WBC (Bld)3.4 %NormalQuest DiagnosticsComment on above:Performed By: #### 22023, 94472, 866, 899, 496, 6399, 86314 #### [facility] of [address], [address] [place] [address] Relay Tester Helper: Dean Maddox MDErythrocyte distribution width (RBC) [Ratio] 13.0 %Xbyylh71.0-15.0Quest DiagnosticsComment on above:Performed By: #### 26913, 27602, 866, 899, 496, 6399, 95028 #### [facility] of [place] [address] Relay Tester Helper: Dean Maddox MDHematocrit (Bld) [Volume fraction]40.1 %Normal 35.0-45.0Quest DiagnosticsComment on above:Performed By: #### 07217, 00377, 866, 899, 496, 6399, 21688 #### [facility] of [place] [address] Relay Tester Helper: Dean Maddox MDHemoglobin (Bld) [Mass/Vol]12.8 g/dLNormal 11.7-15.5Quest DiagnosticsComment on above:Performed By: #### 17240, 73588, 866, 899, 496, 6399, 98663 #### [facility] of [place] [address] Relay Tester Helper: Dean Maddox MDLymphocytes (Bld) [#/Vol]2.007 10*3/uLNormal 850-3900Quest DiagnosticsComment on above:Performed By: #### 72234, 60694, 866, 899, 496, 6399, 31878 #### [facility] of [address], [address] [place] [address] Relay Tester Helper: Dean Maddox MDLymphocytes/100 WBC (Bld)19.3 %NormalQuest DiagnosticsComment on above:Performed By: #### 52206, 28578, 866, 899, 496, 6399, 29252 #### [facility] [address], [address] [place] [address] Relay Tester Helper: Dean Maddox MDMCH (RBC) [Entitic mass]30.0 snFqggve26.0-33.0 Quest DiagnosticsComment on above:Performed By: #### 82617, 43715, 866, 899, 496, 6399, 26706 #### [facility] [address], [address] [place] [address] Relay Tester Helper: Dean JUAREZCHC (RBC) [Mass/Vol]31.9 g/dLLow32.0-36.0 Quest DiagnosticsComment on above:Result Comment: For adults, a slight decrease in the calculated MCHC value (in the range of 30 to 32 g/dL) is most likely not clinically significant; however, it should be interpreted with caution in correlation with other red cell parameters and the patient's clinical condition.Performed By: #### 96261, 52469, 866, 899, 496, 6399, 64789 #### [facility] [place] [address] Relay Tester Helper: Dean Maddox MDMCV (RBC) [Entitic vol]94.1 iVNghpbw52.0-100.0 [facility] DiagnosticsComment on above:Performed By: #### 79213, 07203, 866, 899, 496, 6399, 01083 #### [facility] [address], [address] [place] [address] Relay Tester Helper: Dean Maddox MDMonocytes (Bld) [#/Vol]0.478 10*3/uLNormal 200-950Quest DiagnosticsComment on above:Performed By: #### 91075, 90518, 866, 899, 496, 6399, 54273 #### [facility] of [address], [address] [place] [address] Relay Tester Helper: Dean Maddox MDMonocytes/100 WBC (Bld)4.6 %NormalQuest DiagnosticsComment on above:Performed By: #### 41863, 87892, 866, 899, 496, 6399, 90167 #### [facility] of [address], [address] [place] [address] Relay Tester Helper: Dean Maddox MDNeutrophils (Bld) [#/Vol]7.488 10*3/uLNormal 1500-7800Quest DiagnosticsComment on above:Performed By: #### 86937, 80721, 866, 899, 496, 6399, 27756 #### [facility] of [address], [address] [place] [address] Relay Tester Helper: Dean Maddox MDNeutrophils/100 WBC (Bld)72 %NormalQuest DiagnosticsComment on above:Performed By: #### 77103, 42180, 866, 899, 496, 6399, 59963 #### [facility] of [place] [address] Relay Tester Helper: Dean Maddox MDPlatelet mean volume (Bld) [Entitic vol]9.6 fL Normal7.5-12.5Quest DiagnosticsComment on above:Performed By: #### 62055, 11188, 866, 899, 496, 6399, 95492 #### [facility] of [place] [address] Relay Tester Helper: Dean Maddox MDPlatelets (Bld) [#/Vol]367 10*3/uLNormal 140-400Quest DiagnosticsComment on above:Performed By: #### 14877, 29703, 866, 899, 496, 6399, 75873 #### [facility] [address], [address] [place] [address] Relay Tester Helper: Dean Maddox [facility] ([facility]) [#/Vol]4.26 10*6/uLNormal3.80-5.10 Quest DiagnosticsComment on above:Performed By: #### 40778, 34638, 866, 899, 496, 6399, 90944 #### [facility] [address], [address] [place] [address] Relay Tester Helper: Dean Maddox MDST[facility] ([facility]) [#/Vol]10.4 10*3/uLNormal3.8-10.8 Quest DiagnosticsComment on above:Performed By: #### 78073, 01490, 866, 899, 496, 6399, 69021 #### [facility] [address], [address] [place] [address] Relay Tester Helper: Dean Maddox [facility] DURANTOMPREHENSIVE METABOLIC PANEL 03-26-2024 Albumin [Mass/Vol]4.1 g/dLNormal3.6-5.1Quest DiagnosticsComment on above:Order Comment: COLLECTION KIT GIVEN TO PATIENT. PATIENT ADVISED TO RETURN.Performed By: #### 61094, 70105, 866, 899, 496, 6399, 98943 #### [facility] [address], [address] [place] [address] Relay Tester Helper: Dean Maddox MDAlbumin/Globulin [Mass ratio]1.3 {ratio}Normal 1.0-2.5Quest DiagnosticsComment on above:Order Comment: COLLECTION KIT GIVEN TO PATIENT. PATIENT ADVISED TO RETURN.Performed By: #### 45953, 20940, 866, 899, 496, 6399, 26579 #### [facility] [address], [address] [place] [address] Relay Tester Helper: Dean Maddox MDALP [Catalytic activity/Vol]114 U/LNormal 31-125Quest DiagnosticsComment on above:Order Comment: COLLECTION KIT GIVEN TO PATIENT. PATIENT ADVISED TO RETURN.Performed By: #### 08640, 03308, 866, 899, 496, 6399, 43332 #### [facility] [address], [address] [place] [address] Relay Tester Helper: Dean Maddox MDALT [Catalytic activity/Vol]11 U/LNormal6-29 [facility] DiagnosticsComment on above:Order Comment: COLLECTION KIT GIVEN TO PATIENT. PATIENT ADVISED TO RETURN.Performed By: #### 25548, 33576, 866, 899, 496, 6399, 69178 #### [facility] [place] [address] Relay Tester Helper: Dean Maddox MDAST [Catalytic activity/Vol]9 U/ZCrq69-78Uhpij DiagnosticsComment on above:Order Comment: COLLECTION KIT GIVEN TO PATIENT. PATIENT ADVISED TO RETURN.Performed By: #### 27585, 74910, 866, 899, 496, 6399, 37532 #### [facility] [address], [address] [place] [address] Relay Tester Helper: Dean Maddox MDBilirubin [Mass/Vol]0.5 mg/dLNormal0.2-1.2 [facility]osticsComment on above:Order Comment: COLLECTION KIT GIVEN TO PATIENT. PATIENT ADVISED TO RETURN.Performed By: #### 74274, 56206, 866, 899, 496, 6399, 43641 #### [facility] [address], [address] [place] [address] Relay Tester Helper: Dean Maddox MDCalcium [Mass/Vol]9.8 mg/dLNormal8.6-10.2Quest DiagnosticsComment on above:Order Comment: COLLECTION KIT GIVEN TO PATIENT. PATIENT ADVISED TO RETURN.Performed By: #### 84343, 03493, 866, 899, 496, 6399, 71773 #### [facility] [address], [address] [place] [address] Relay Tester Helper: Dean GUARDADOhloride [Moles/Vol]106 mmol/LIpaqmy33-748 [facility] DiagnosticsComment on above:Order Comment: COLLECTION KIT GIVEN TO PATIENT. PATIENT ADVISED TO RETURN.Performed By: #### 42578, 42297, 866, 899, 496, 6399, 43206 #### [facility] [address], [address] [place] [address] Relay Tester Helper: Dean Maddox MDCO2 [Moles/Vol]23 mmol/DFghdyz80-40Tkxwq DiagnosticsComment on above:Order Comment: COLLECTION KIT GIVEN TO PATIENT. PATIENT ADVISED TO RETURN.Performed By: #### 65105, 87633, 866, 899, 496, 6399, 78470 #### [facility] [address], [address] [place] [address] Relay Tester Helper: Dean GUARDADOreatinine [Mass/Vol]1.28 mg/dLHigh0.50-0.99 [facility]osticsComment on above:Order Comment: COLLECTION KIT GIVEN TO PATIENT. PATIENT ADVISED TO RETURN.Performed By: #### 80786, 25696, 866, 899, 496, 6399, 85339 #### [facility] [address], [address] [place] [address] Relay Tester Helper: Dean Maddox MDGFR/1.73 sq M.predicted among non-blacks MDRD (S/P/Bld) [Vol rate/Area]52 mL/min/{1.73_m2}Low> OR = 60Quest DiagnosticsComment on above:Order Comment: COLLECTION KIT GIVEN TO PATIENT. PATIENT ADVISED TO RETURN.Performed By: #### 92423, 57097, 866, 899, 496, 6399, 93017 #### [facility] [address], [address] [place] [address] Relay Tester Helper: Dean Maddox MDGlobulin (S) [Mass/Vol]3.1 g/dLNormal1.9-3.7 [facility]osticsComment on above:Order Comment: COLLECTION KIT GIVEN TO PATIENT. PATIENT ADVISED TO RETURN.Performed By: #### 06472, 01661, 866, 899, 496, 6399, 53070 #### [facility] [place] [address] Relay Tester Helper: Dean Maddox MDGlucose [Mass/Vol]239 mg/iXKmhe16-11Poqrj DiagnosticsComment on above:Order Comment: COLLECTION KIT GIVEN TO PATIENT. PATIENT ADVISED TO RETURN.Result Comment: Fasting reference interval For someone without known diabetes, a glucose value >125 mg/dL indicates that they may have diabetes and this should be confirmed with a follow-up test.Performed By: #### 44981, 29569, 866, 899, 496, 6399, 79370 #### [facility] [place] [address] Relay Tester Helper: Dean Maddox MDPotassium [Moles/Vol]4.3 mmol/LNormal3.5-5.3 [facility]osticsComment on above:Order Comment: COLLECTION KIT GIVEN TO PATIENT. PATIENT ADVISED TO RETURN.Performed By: #### 92145, 73259, 866, 899, 496, 6399, 05264 #### [facility] [place] [address] Relay Tester Helper: Dean Maddox MDProtein [Mass/Vol]7.2 g/dLNormal6.1-8.1[facility] DiagnosticsComment on above:Order Comment: COLLECTION KIT GIVEN TO PATIENT. PATIENT ADVISED TO RETURN.Performed By: #### 97595, 90248, 866, 899, 496, 6399, 94415 #### [facility] [address], [address] [place] [address] Relay Tester Helper: Dean Maddox MDSodium [Moles/Vol]138 mmol/TVmgpta914-160Zqdgh DiagnosticsComment on above:Order Comment: COLLECTION KIT GIVEN TO PATIENT. PATIENT ADVISED TO RETURN.Performed By: #### 48576, 52043, 866, 899, 496, 6399, 29608 #### [facility] [address], [address] [place] [address] Relay Tester Helper: Dean Maddox MDUrea nitrogen [Mass/Vol]34 mg/dLHigh7-25Quest DiagnosticsComment on above:Order Comment: COLLECTION KIT GIVEN TO PATIENT. PATIENT ADVISED TO RETURN.Performed By: #### 67130, 37846, 866, 899, 496, 6399, 96101 #### [facility] [address], [address] [place] [address] Relay Tester Helper: Dean Maddox MDUrea nitrogen/Creatinine [Mass ratio]27 mg/mg High6-22Quest DiagnosticsComment on above:Order Comment: COLLECTION KIT GIVEN TO PATIENT. PATIENT ADVISED TO RETURN.Performed By: #### 15417, 22781, 866, 899, 496, 6399, 19419 #### [facility] [address], [address] [place] [address] Relay Tester Helper: Dean Maddox MDCDESTINYATININE, SERUMon 30-19-6464Snxhdbkrmm [Mass/Vol]1.67 mg/dLHigh0.40-1.10[facility] Bee[facility] GroveComment on above:Order Comment: For monitoring while on vancomycin therapyK[facility] has implemented the eGFR calculation approach that does not have a coefficient for race that conforms to the NKF-ASN Task Force Recommendations. Performed By: #### 74450 ####[facility] [address] [place], [place] [address] Abbi Choudhary M.D. [id number] mL/min/1.73 m2Low>=60[facility] Comment on above:Order Comment: For monitoring while on vancomycin therapyOhSt. John of [facility] has implemented the eGFR calculation approach that does not have a coefficient for race that conforms to the NKF-ASN Task Force Recommendations.Result Comment: Estimated GFR was calculated using the 2020 CKD-EPI creatinine equation.Performed By: #### 85018 ####[facility] [address] [place], [place] [address] Abbi Choudhary M.D. [id number] [Mass/Vol]on 77-67-2521DMK/1.73 sq M.predicted CKD-EPI (S/P/Bld) [Vol rate/Area] 38Low- PINFOhioHealthInterpretation and review of laboratory resultsAbnormal OhioHealthOhioHealthOhioHealthCreatinine, Serumon 38-73-5029Nkyfymguvj [Mass/Vol]1.67 mg/dLHigh0.40 - 1.10 mg/dLOhioHealthGlucose (Bld) [Mass/Vol]on 77-55-6436Efcijia [Mass/Vol]328 mg/pPAzvv41 - 99 mg/dLOhioHealthInterpretation and review of laboratory resultsAbnormalOhioHealthOhioHealthGlucose [Mass/Vol] 312 mg/uLBsvw47 - 99 mg/dLOhioHealthInterpretation and review of laboratory resultsAbnormalOhioHealthOhioHealthGlucose [Mass/Vol]214 mg/cCIlcx46 - 99 mg/dL OhioHealthInterpretation and review of laboratory resultsAbnormalOhioHealth OhioHealthGlucose [Mass/Vol]101 mg/bEGgez36 - 99 mg/dLOhioHealthInterpretation and review of laboratory resultsAbnormalOhioHealthOhioHealthGlucose [Mass/Vol]72 mg/dL65 - 99 mg/dLOhioHealthInterpretation and review of laboratory results NormalOhioHealthOhioHealthLEVETIRACETAMon 72-92-2890ptvRGETQdesrv [Mass/Vol] ug/mLLowQuest DiagnosticsComment on above:Result Comment: Reference Range: 12.0-46.0 Toxic level is not well established. Interpretation should include a clinical evaluation. For additional information, please refer to http://education.[employer].Phone Warrior/faq/VAN145 (This link is being provided for informational/educational purposes only.) This test was developed and its analytical performance characteristics have been determined by [employer]. It has not been cleared or approved by the FDA. This assay has been validated pursuant to the CLIA regulations and is used for clinical purposes.Performed By: #### 59344, 08860, 866, 899, 496, 9792, 28214 #### [employer] [facility] [address], [address] [place] [address] Relay Tester Helper: Dean Zimmer 12-37-5573Jthas TubeHold for add-ons.[facility] GLUCOSE - RALSon 24-39-3932Igwciii [Mass/Vol]328 mg/tINavn80-43Wccwlc [facility] HospitalComment on above:Performed By: #### 26298 ####[facility] [address] [place], [place] [address] Abbi Choudhary M.D. 36D0 650674Dxvbywv [Mass/Vol]312 mg/lRYzum37-35Mivmdt [facility] HospitalComment on above:Performed By: #### 35183 ####[facility] [address] [place] [address] Abbi Choudhary M.D. [id number] [Mass/Vol]214 mg/wIFclv05-80Pifdcp [facility] HospitalComment on above:Performed By: #### 20887 ####[facility] [address] [place] [address] Abbi Choudhary M.D. [id number] [Mass/Vol]101 mg/sEOyxr04-52Mqkeyz [facility] HospitalComment on above:Performed By: #### 50777 ####[facility] [address] [place] [address] Abbi Choudhary M.D. [id number] [Mass/Vol]72 mg/cGYtfiep76-91EbefibColumbus Regional Health Comment on above:Performed By: #### 52649 ####[facility] [address] [place], [place] [address] Abbi Choudhary M.D. [id number] METABOLIC PANELon 03-25-2024 Anion gap [Moles/Vol]15 mmol/IXoppxy56-23CsyolbSelect Specialty Hospital - Beech GroveComment on above:Order Comment: [facility] has implemented the eGFR calculation approach that does not have a coefficient for race that conforms to the NKF-ASN Task Force Recommendations.Performed By: #### 38391 ####[facility] [address] [place] [address] Abbi Choudhary M.D. [id number] [Mass/Vol]8.3 mg/dLLow8.4-10.2MRiley Hospital for Children on above:Order Comment: [facility] has implemented the eGFR calculation approach that does not have a coefficient for race that conforms to the NKF-ASN Task Force Recommendations.Performed By: #### 30251 ####[facility] [address] [place] [address] Abbi Choudhary M.D. [id number] [Moles/Vol]105 mmol/KCkqziu91-655XuwvrbMargaret Mary Community Hospital on above:Order Comment: [facility] has implemented the eGFR calculation approach that does not have a coefficient for race that conforms to the NKF-ASN Task Force Recommendations.Performed By: #### 01658 ####[facility] [address] [place] [address] Abbi Choudhary M.D. [id number] [Mass/Vol]1.35 mg/dLHigh0.40-1.10[facility] on above:Order Comment: [facility] has implemented the eGFR calculation approach that does not have a coefficient for race that conforms to the NKF-ASN Task Force Recommendations.Performed By: #### 17056 ####[facility] [address] [place] [address] Abbi Choudhary M.D. [id number] mL/min/1.73 m2Low>=60 [facility] on above:Order Comment: [facility] has implemented the eGFR calculation approach that does not have a coefficient for race that conforms to the NKF-ASN Task Force Recommendations. Result Comment: Estimated GFR was calculated using the 2020 CKD-EPI creatinine equation.Performed By: #### 69677 ####[facility] [address] [place] [address] Abbi Choudhary M.D. [id number] [Mass/Vol]345 mg/uKFlge45-93ApsbdnRiley Hospital for Children on above:Order Comment: [facility] has implemented the eGFR calculation approach that does not have a coefficient for race that conforms to the NKF-ASN Task Force Recommendations.Performed By: #### 58468 ####[facility] [address] [place] [address] Abbi Choudhary M.D. [id number] (Bld) [Moles/Vol]22 mmol/SVypdpx67-41AavucfSelect Specialty Hospital - Bee[facility] Grove Comment on above:Order Comment: [facility] has implemented the eGFR calculation approach that does not have a coefficient for race that conforms to the NKF-ASN Task Force Recommendations.Performed By: #### 93674 ####[facility] [address] [place] [address] Abbi Choudhary M.D. 36D0 784723Zloygatxm [Moles/Vol]4.3 mmol/LNormal3.5-5.1MColumbus Regional HealthComascension standish hospital on above:Order Comment: [facility] has implemented the eGFR calculation approach that does not have a coefficient for race that conforms to the NKF-ASN Task Force Recommendations.Performed By: #### 45504 ####[facility] [address] [place] [address] Abbi Choudhary M.D. [id number] [Moles/Vol]138 mmol/BToemlt667-651XbmygkSelect Specialty Hospital - Beech GroveComment on above:Order Comment: [facility] has implemented the eGFR calculation approach that does not have a coefficient for race that conforms to the NKF-ASN Task Force Recommendations.Performed By: #### 35010 ####[facility] [address] [place] [address] Abbi Choudhary M.D. [id number] nitrogen [Mass/Vol] 23 mg/dLNormal8-25[facility] - Beech GroveComment on above:Order Comment: [facility] has implemented the eGFR calculation approach that does not have a coefficient for race that conforms to the NKF-ASN Task Force Recommendations.Performed By: #### 23092 ####[facility] [address] [place] [address] Abbi Choudhary M.D. [id number] nitrogen/Creatinine [Mass ratio]17.0 mg/cgTbttoq32.0-20.0[facility] GroveComascension standish hospital on above:Order Comment: [facility] has implemented the eGFR calculation approach that does not have a coefficient for race that conforms to the NKF-ASN Task Force Recommendations.Performed By: #### 50430 ####[facility] [address] [place], [place] [address] Abbi Choudhary M.D. [id number] CULTURE AEROBIC/ANAEROBICon 34-86-5660GDKDD CULTURE AEROBIC/ANAEROBICBLOOD CULTURE No Growth after 5 daysNormSt. Vincent Mercy HospitalComment on above:Performed By: #### 18887 ####[facility] [address] [place], [place] [address] Swapnil Brewer M.D. [id number] metabolic 2000 panelon 59-59-6057Aaqvk gap [Moles/Vol]15 mmol/L10 - 20 mmol/LOhioHealthCalcium [Mass/Vol]8.3 mg/dLLow8.4 - 10.2 mg/dLOhioHealthChloride [Moles/Vol]105 mmol/L98 - 108 mmol/LOhioHealthCreatinine [Mass/Vol]1.35 mg/dLHigh0.40 - 1.10 mg/dL OhioHealthGFR/1.73 sq M.predicted CKD-EPI (S/P/Bld) [Vol rate/Area]49Low- PINF OhioHealthGlucose [Mass/Vol]345 mg/lQOesm32 - 99 mg/dLOhioHealthHCO3 [Moles/Vol] 22 mmol/L21 - 32 mmol/LOhioHealthInterpretation and review of laboratory results AbnormalOhioHealthPotassium [Moles/Vol]4.3 mmol/L3.5 - 5.1 mmol/LOhioHealth Sodium [Moles/Vol]138 mmol/L135 - 145 mmol/LOhioHealthUrea nitrogen [Mass/Vol]23 mg/dL8 - 25 mg/dLOhioHealthUrea nitrogen/Creatinine [Mass ratio]17 mg/mg10.0 - 20.0OhioHealthOhioHealthOhioHealthCBCon 84-01-4146KCZA NRBC0.0 %[facility] County Memorial HospitalComment on above:Performed By: #### 79539 ####[facility] [address] [place], [place] [address] Abbi Choudhary M.D. [id number] NRBC ABS COUNT0.00 K/mcLNormal0.00-0.00[facility] Bee[facility] GroveComment on above:Performed By: #### [id number] ####[facility] [address] [place] [address] Abbi Choudhary M.D. [id number] distribution width (RBC) [Ratio]13.0 %Mmlqxi56.6-14.8 [facility] GroveComment on above:Performed By: #### 80169 ####[facility] [address] [place] [address] Abbi Choudhary M.D. [id number] (Bld) [Volume fraction]29.7 %Low36.0-46.0[facility] Bee[facility] GroveComment on above:Performed By: #### 04138 ####[facility] [address] [place] [address] Abbi Choudhary M.D. [id number] (Bld) [Mass/Vol]10.2 g/dLLow12.0-16.0 [facility] GroveComment on above:Performed By: #### 02975 ####[facility] [address] [place] [address] Abbi Choudhary M.D. [id number] (RBC) [Entitic mass]30.7 bsKyaoww74.0-34.0[facility] GroveComment on above: Performed By: #### 16726 ####[facility] [address] [place] [address] Abbi Choudhary M.D. [id number] (RBC) [Entitic vol]89.5 oINybggl43.0-100.0[facility] GroveComment on above:Performed By: #### 96590 ####[facility] [address] [place] [address] Abbi Choudhary M.D. [id number] CORPUSCULAR HEMOGLOBIN CONC34.3 g/xROwgcwx11.0-37.0[facility] Bee[facility] GroveComment on above: Performed By: #### 36528 ####[facility] [address] [place] [address] Abbi Choudhary M.D. [id number] mean volume (Bld) [Entitic vol]9.0 fLLow 9.4-12.4[facility] GroveComment on above:Performed By: #### 26473 ####[facility] [address] [place] [address] Abbi Choudhary M.D. [id number] Platelets (Bld) [#/Vol]297 10*3/oLXxuzgi685-205JpbgljSelect Specialty Hospital - Beech GroveComment on above:Performed By: #### 98772 ####[facility] [address] [place] [address] Abbi Choudhary M.D. [id number] (Bld) [#/Vol]3.32 10*6/uLLow4.00-5.20 [facility] GroveComascension standish hospital on above:Performed By: #### 81272 ####[facility] [address] [place] [address] Abbi Choudhary M.D. [id number] (Bld) [#/Vol]8.66 10*3/uLNormal4.50-11.00[facility] on above: Performed By: #### 13113 ####[facility] [address] [place] [address] Abbi Choudhary M.D. [id number] panel Auto (Bld)on 57-30-5499Uzbkpaaiyiu distribution width (RBC) [Entitic vol]13 %11.6 - 14.8 %OhioHealthHematocrit (Bld) [Volume fraction]29.7 %Low36.0 - 46.0 %OhioHealthHemoglobin (Bld) [Mass/Vol]10.2 g/dLLow12.0 - 16.0 g/dLOhioHealthInterpretation and review of laboratory resultsAbnormalOhioHealthMCH (RBC) [Entitic mass]30.7 pg26.0 - 34.0 pgOhioHealthMCHC (RBC) [Mass/Vol]34.3 g/dL31.0 - 37.0 g/dLOhioHealthMCV (RBC) [Entitic vol]89.5 fL80.0 - 100.0 fLOhioHealthNucleated RBC (Bld) [#/Vol]0 10*3/uLOhioHealthNucleated RBC/100 WBC (Bld) [Ratio]0 %OhioHealthPlatelet mean volume (Bld) [Entitic vol]9 fLLow9.4 - 12.4 fLOhioHealthPlatelets (Bld) [#/Vol] 297 10*3/uLOhioHealthRBC (Bld) [#/Vol]3.32 10*6/uLLowOhioHealthWBC (Bld) [#/Vol] 8.66 10*3/uLOhioHealthOhioHealthCONSULTon 73-35-5868XSHIIUCDmubqbSsfoblWest Central Community Hospital 12- Leadon 36-98-0095Bofsbg Byok891KNGWvtaTkzuzmN Mgai48ogqnwzs OhioHealthP-R Alikfsmf974 msOhioHealthQ-T Lwlmbugs247 msOhioHealthQRS Jsjbsegi30 msOhioHealthQTC Calculation (Bezet)441 msOhioHealthR Txwu06nrzblnmDdrwAiienjP Jhip48ayjwawjFllxYgxfxzZdpqtvrftat Obsp658FGHQgmuBimevvZHACPtraMmtamoAFFxa 77-09-2484GhyzKftybaUzcjhlf (Bld) [Mass/Vol]on 73-51-3505Lmwwlie [Mass/Vol]117 mg/hDPttb11 - 99 mg/dLOhioHealthInterpretation and review of laboratory results AbnormalOhioHealthOhioHealthGlucose [Mass/Vol]142 mg/tMPurd29 - 99 mg/dL OhioHealthInterpretation and review of laboratory resultsAbnormalOhioHealth OhioHealthGlucose [Mass/Vol]148 mg/lQCjpg37 - 99 mg/dLOhioHealthInterpretation and review of laboratory resultsAbnormalOhioHealthOhioHealthGlucose [Mass/Vol] 286 mg/fJQopt61 - 99 mg/dLOhioHealthInterpretation and review of laboratory resultsAbnormalOhioHealthOhioHealthGlucose [Mass/Vol]343 mg/wWLdzi65 - 99 mg/dL LouisianaHealthInterpretation and review of laboratory resultsAbnormalOhioHealth OhioMercy Health St[facility] Rita'S Medical CenterGlucose [Mass/Vol]469 mg/dLCritically high65 - 99 mg/dLOhioHealth Interpretation and review of laboratory resultsAbnormalOhioHealNorwalk Memorial HospitalioMercy Health St. Rita'S [facility] OhioHealthGlucose [Mass/Vol]mg/dLCritically high65 - 99 mg/dLOhioMercy Health St[address] Rita'S [facility] Interpretation and review of laboratory resultsAbnormalOLouis Stokes Cleveland VA Medical CenterealNorwalk Memorial HospitalioMercy Health St. Rita'[facility] Center OhioMercy Health St. Rita'S Medical CenterGold Topon 37-85-6945Fmsig TubeHold for add-ons.[facility] CenterioMercy Health St. Rita'S Medical CenterH AND Paulino 03-25-2024H AND PNormalSelect Specialty Hospital - Beech GroveLACTIC ACID, PLASMAon 88-77-6348LDTIYI ACID, PLASMA2.1 mmol/LHigh0.6-2.0[facility] GroveComment on above:Performed By: #### [id number] ####[facility] [address] [place], [place] [address] Abbi Choudhary M.D. [id number] [Moles/Vol]on 03-25-2024 Interpretation and review of laboratory resultsAbnormKettering Health Troy Lactic Acid, Plasmaon 42-01-8361Hyxoqjg [Moles/Vol]2.1 mmol/LHigh0.6 - 2.0 mmol/LOhioHealthPOC GLUCOSE - RALSon 68-08-2143Ehqlhht [Mass/Vol]117 mg/dLHigh 65-99MColumbus Regional HealthComment on above:Performed By: #### 89133 ####[facility] [address] [place], [place] [address] Abbi Choudhary M.D. [id number] [Mass/Vol]142 mg/pSKjod51-63VmabagColumbus Regional HealthComment on above:Performed By: #### 79668 ####[facility] [address] [place], [place] [address] Abbi Choudhary M.D. [id number] [Mass/Vol]148 mg/jTQyae18-32IpryoqColumbus Regional Health Comment on above:Performed By: #### 11457 ####[facility] [address] [place], [place] [address]Alisia Choudhary M.D. [id number] [Mass/Vol]286 mg/pGCwyu80-54 [facility] Bee[facility] GroveComment on above:Performed By: #### 25523 ####[facility] [address] [place], [place] [address] Abbi Choudhary M.D. [id number] [Mass/Vol]343 mg/bZRejm83-30PfybbmColumbus Regional HealthComment on above:Performed By: #### 23701 ####[facility] [address] [place], [place] [address] Abbi Choudhary M.D. [id number] [Mass/Vol]469 mg/dLOff scale [address] StreetComment on above:Order Comment: Critical result acted upon time of test. Test performed at bedside.Performed By: #### 27567 ####[facility] [address] [place] [address] Abbi Choudhary M.D. [id number] GLUCOSE>Off scale [address] StreetComment on above:Order Comment: Critical result acted upon time of test. Test performed at bedside.Performed By: #### 64822 ####[facility] [address] [place], [place] [address] Abbi Choudhary M.D. 36D0 [id number] LACTIC ACID, PLASMAon 80-62-2132NZGLXV ACID, PLASMA1.2 mmol/LNormal 0.6-2.0[facility] GroveComment on above:Performed By: #### [id number] ####[facility] [address] [place] [address] Abbi Choudhary M.D. 3 [id number] ACID, PLASMA2.2 mmol/LHigh0.6-2.0[facility] GroveComment on above:Performed By: #### [id number] ####[facility] [address] [place], [place] [address] Abbi Choudhary M.D. [id number] Lactic Acid, Plasmaon 81-49-7307Dzbepggejjeswl and review of laboratory resultsNormalOhioHealthLactate [Moles/Vol]1.2 mmol/L0.6 - 2.0 mmol/LOhioHealthOhioHealthInterpretation and review of laboratory resultsAbnormalOhioHealthLactate [Moles/Vol]2.2 mmol/LHigh 0.6 - 2.0 mmol/LOhioHealthOhioHealthURINALYSISon 05-10-0108JJTFPZQQ, URINERare AbnormalNone SeenSelect Specialty Hospital - Beech GroveComment on above:Order Comment: Microscopic examination is performed on all urinalysis samples and only positive findings are reported. The test for blood on the chemical analytic portion of urinalysis may also be positive due to hemoglobinuria and myoglobinuria and if red blood cells are present they are quantified by microscopic examination. Performed By: #### [id number] ####[facility] [address] [place] [address] Abbi Choudhary M.D. [id number], URINENegativeNormalNegMadison State HospitalComment on above:Order Comment: Microscopic examination is performed on all urinalysis samples and only positive findings are reported. The test for blood on the chemical analytic portion of urinalysis may also be positive due to hemoglobinuria and myoglobinuria and if red blood cells are present they are quantified by microscopic examination.Performed By: #### [id number] ####[facility] [address] [place] [address] Abbi Choudhary M.D. [id number], URINE ModerateAbnormalNegMadison State HospitalComment on above:Order Comment: Microscopic examination is performed on all urinalysis samples and only positive findings are reported. The test for blood on the chemical analytic portion of urinalysis may also be positive due to hemoglobinuria and myoglobinuria and if red blood cells are present they are quantified by microscopic examination. Performed By: #### [id number] ####[facility] [address] [address] Abbi Choudhary M.D. [id number] (U)ClearNormalCLutheran Hospital of Indiana Comment on above:Order Comment: Microscopic examination is performed on all urinalysis samples and only positive findings are reported. The test for blood on the chemical analytic portion of urinalysis may also be positive due to hemoglobinuria and myoglobinuria and if red blood cells are present they are quantified by microscopic examination.Performed By: #### [id number] ####[facility] [address] [address] Abbi Choudhary M.D. [id number] (U)Yellow NormalColorless, [facility] on above:Order Comment: Microscopic examination is performed on all urinalysis samples and only positive findings are reported. The test for blood on the chemical analytic portion of urinalysis may also be positive due to hemoglobinuria and myoglobinuria and if red blood cells are present they are quantified by microscopic examination. Performed By: #### [id number] ####[facility] [address] [address] Abbi Choudhary M.D. [id number] Ql (U)>=500AbnormalNegMadison State HospitalComascension standish hospital on above:Order Comment: Microscopic examination is performed on all urinalysis samples and only positive findings are reported. The test for blood on the chemical analytic portion of urinalysis may also be positive due to hemoglobinuria and myoglobinuria and if red blood cells are present they are quantified by microscopic examination.Performed By: #### [id number] ####[facility] [address] [address] Abbi Choudhary M.D. [id number] Ql (U) NegativeNormalNegMadison State HospitalComascension standish hospital on above:Order Comment: Microscopic examination is performed on all urinalysis samples and only positive findings are reported. The test for blood on the chemical analytic portion of urinalysis may also be positive due to hemoglobinuria and myoglobinuria and if red blood cells are present they are quantified by microscopic examination. Performed By: #### [id number] ####[facility] [address] [address] Abbi Choudhary M.D. [id number] esterase Test strip Ql (U)NegativeNormal [facility] HospitalComasc[facility] stand[facility] hospital on above:Order Comment: Microscopic examination is performed on all urinalysis samples and only positive findings are reported. The test for blood on the chemical analytic portion of urinalysis may also be positive due to hemoglobinuria and myoglobinuria and if red blood cells are present they are quantified by microscopic examination.Performed By: #### [id number] ####[facility] [address] [place], [place] [address] Abbi Choudhary M.D. [id number], URINERareNormalNone Seen, [facility] Comment on above:Order Comment: Microscopic examination is performed on all urinalysis samples and only positive findings are reported. The test for blood on the chemical analytic portion of urinalysis may also be positive due to hemoglobinuria and myoglobinuria and if red blood cells are present they are quantified by microscopic examination.Performed By: #### [id number] ####[facility] [address] [address] Abbi Choudhary M.D. [id number], URINE NegativeNormalNegMadison State HospitalComment on above:Order Comment: Microscopic examination is performed on all urinalysis samples and only positive findings are reported. The test for blood on the chemical analytic portion of urinalysis may also be positive due to hemoglobinuria and myoglobinuria and if red blood cells are present they are quantified by microscopic examination. Performed By: #### [id number] ####[facility] [address] [place], [place] [address] Abbi Choudhary M.D. [id number] (U)5.0 [pH]Normal5.0-7.0[facility] Comment on above:Order Comment: Microscopic examination is performed on all urinalysis samples and only positive findings are reported. The test for blood on the chemical analytic portion of urinalysis may also be positive due to hemoglobinuria and myoglobinuria and if red blood cells are present they are quantified by microscopic examination.Performed By: #### [id number] ####[facility] [address] [place], [place] [address] Abbi Choudhary M.D. [id number] (U) [Mass/Vol]100 mg/dLAbnormalNegMadison State HospitalComment on above:Order Comment: Microscopic examination is performed on all urinalysis samples and only positive findings are reported. The test for blood on the chemical analytic portion of urinalysis may also be positive due to hemoglobinuria and myoglobinuria and if red blood cells are present they are quantified by microscopic examination.Performed By: #### [id number] ####[facility] [address] [address]Alisia Choudhary M.D. [id number] LM.HPF (Urine sed) [#/Area]2 /[HPF]Normal0-3MRiley Hospital for Children on above:Order Comment: Microscopic examination is performed on all urinalysis samples and only positive findings are reported. The test for blood on the chemical analytic portion of urinalysis may also be positive due to hemoglobinuria and myoglobinuria and if red blood cells are present they are quantified by microscopic examination. Performed By: #### [id number] ####[facility] [address] [address] Abbi Choudhary M.D. [id number] gravity (U) [Rel density]1.021Normal 1.005-1.025[facility] on above:Order Comment: Microscopic examination is performed on all urinalysis samples and only positive findings are reported. The test for blood on the chemical analytic portion of urinalysis may also be positive due to hemoglobinuria and myoglobinuria and if red blood cells are present they are quantified by microscopic examination.Performed By: #### [id number] ####[facility] [address] [address] Abbi Choudhary M.D. [id number] EPITHELIAL2 /hpfNormal0-4[facility] on above:Order Comment: Microscopic examination is performed on all urinalysis samples and only positive findings are reported. The test for blood on the chemical analytic portion of urinalysis may also be positive due to hemoglobinuria and myoglobinuria and if red blood cells are present they are quantified by microscopic examination.Performed By: #### [id number] ####[facility] [address] [address] Abbi Choudhary M.D. [id number], URINE<2.0Normal<2.0[facility] on above:Order Comment: Microscopic examination is performed on all urinalysis samples and only positive findings are reported. The test for blood on the chemical analytic portion of urinalysis may also be positive due to hemoglobinuria and myoglobinuria and if red blood cells are present they are quantified by microscopic examination. Performed By: #### [id number] ####[facility] [address] [place], [place] [address] Abbi Choudhary M.D. [id number] LM.HPF (Urine sed) [#/Area]5 /[HPF]Normal0-5[facility] Bee[facility] GroveComment on above:Order Comment: Microscopic examination is performed on all urinalysis samples and only positive findings are reported. The test for blood on the chemical analytic portion of urinalysis may also be pos itive due to hemoglobinuria and myoglobinuria and if red blood cells are present they are quantified by microscopic examination.Performed By: #### [id number] ####[facility] [address] [place], [place] [address] Abbi Choudhary M.D. [id number] AEROBIC CULTUREon 78-22-2195SSLEK AEROBIC CULTUREAbLogansport Memorial Hospital Comment on above:Performed By: #### [id number] ####[facility] [address] [place] [address] Swapnil Brewer M.D. [id number] By: Navneet Parr on 89-63-7403Ebnnqdxp Auto Ql (U) RareAbnormalNone Seen /hpfOhioHealthBilirubin Ql (U)NegativeNegativeOhioHealth Clarity Refractometry automated (U)ClearClearOhioHealthColor (U)YellowColorless, YellowOhioHealthEpithelial cells.squamous Auto (Urine sed) [#/Area]2[facility] Glucose Auto test strip (U) [Mass/Vol]>=500AbnormalNegative mg/dLOhioHealth Hemoglobin Auto test strip Ql (U)ModerateAbnormalNegativeOhioHealth Interpretation and review of laboratory resultsAbnormalOhioHealthKetones (U) [Mass/Vol]NegativeNegative mg/dLOhioHealthLeukocyte esterase Auto test strip Ql (U)NegativeNegativeOhioHealthMucus Auto (Urine sed) [#/Area]RareNone Seen, Rare /lpfOhioHealthNitrite Auto test strip Ql (U)NegativeNegativeOhioHealthpH (U)5 [pH]5.0 - 7.0OhioHealthProtein (U) [Mass/Vol]100 mg/dLAbnormalNegativeOhioHealth RBC Auto (Urine sed) [#/Area]2OhioHealthSpecific gravity (U) [Rel density]1.021 1.005 - 1.025OhioHealthUrobilinogen (U) [Mass/Vol]mg/dLNINF - 2.0 mg/dL OhioMer[facility] Health [facility] Rita[facility]S Medical CenterWBC Auto (Urine sed) [#/Area]5OhioHealthOhioHealthOhioHealthWOUND AEROBIC AND ANAEROBIC CULTUREon 36-21-8440GCLJL AEROBIC AND ANAEROBIC CULTURE CULTURE No Growth after 5 days GRAM STAIN RESULT Few WBC Many RBC No Organisms SeenNoDeKalb Memorial HospitalComment on above:Performed By: #### [id number] ####[facility] [address] [place], [place] [address] Swapnil Brewer M.D. [id number] AEROBIC AND ANAEROBIC CULTUREAbnoDeKalb Memorial HospitalComment on above:Performed By: #### [id number] ####[facility] [address] [place] [address] Swapnil Brewer M.D. [id number] METABOLIC PANEL on 75-28-9649Qqoqv gap [Moles/Vol]20 mmol/JTesour85-26HkeyjxSelect Specialty Hospital [facility] Comment on above:Order Comment: [facility] has implemented the eGFR calculation approach that does not have a coefficient for race that conforms to the NKF-ASN Task Force Recommendations.Performed By: #### [id number] ####[facility] [address] [address] Abbi Choudhary M.D. [id number] [Mass/Vol]9.3 mg/dLNormal8.4-10.2MColumbus Regional HealthComment on above:Order Comment: [facility] has implemented the eGFR calculation approach that does not have a coefficient for race that conforms to the NKF-ASN Task Force Recommendations.Performed By: #### [id number] ####[facility] [address] [place], [place] [address] Abbi Choudhary M.D. [id number] [Moles/Vol]97 mmol/LUce77-811VhpspkMargaret Mary Community Hospital on above:Order Comment: [facility] has implemented the eGFR calculation approach that does not have a coefficient for race that conforms to the NKF-ASN Task Force Recommendations.Performed By: #### [id number] ####[facility] [address] [address] Abbi Choudhary M.D. [id number] [Mass/Vol]1.44 mg/dLHigh0.40-1.10[facility] on above:Order Comment: [facility] has implemented the eGFR calculation approach that does not have a coefficient for race that conforms to the NKF-ASN Task Force Recommendations.Performed By: #### [id number] ####[facility] [address] [address] Abbi Choudhary M.D. [id number] mL/min/1.73 m2Low>=60 [facility] on above:Order Comment: [facility] has implemented the eGFR calculation approach that does not have a coefficient for race that conforms to the NKF-ASN Task Force Recommendations. Result Comment: Estimated GFR was calculated using the 2020 CKD-EPI creatinine equation.Performed By: #### [id number] ####[facility] [address] [address] Abbi Choudhary M.D. [id number] [Mass/Vol]646 mg/dLOff scale high 65-99MRiley Hospital for Children on above:Order Comment: [facility] has implemented the eGFR calculation approach that does not have a coefficient for race that conforms to the NKF-ASN Task Force Recommendations.Performed By: #### [id number] ####[facility] [address] [address] Abbi Choudhary M.D. [id number] (Bld) [Moles/Vol]22 mmol/L Mbzvqh56-12TpxvviMargaret Mary Community Hospital on above:Order Comment: [facility] has implemented the eGFR calculation approach that does not have a coefficient for race that conforms to the NKF-ASN Task Force Recommendations.Performed By: #### [id number] ####[facility] [address] [address] Abbi Choudhary M.D. [id number] [Moles/Vol]4.6 mmol/L Normal3.5-5.1MRiley Hospital for Children on above:Order Comment: [facility] has implemented the eGFR calculation approach that does not have a coefficient for race that conforms to the NKF-ASN Task Force Recommendations.Performed By: #### [id number] ####[facility] [address] [address] Abbi Choudhary M.D. [id number] [Moles/Vol]134 mmol/LLow 135-145[facility] on above:Order Comment: [facility] has implemented the eGFR calculation approach that does not have a coefficient for race that conforms to the NKF-ASN Task Force Recommendations.Performed By: #### [id number] ####[facility] [address] [address] Abbi Choudhary M.D. [id number] nitrogen [Mass/Vol]24 mg/dL Normal8-25[facility] on above:Order Comment: [facility] has implemented the eGFR calculation approach that does not have a coefficient for race that conforms to the NKF-ASN Task Force Recommendations.Performed By: #### [id number] ####[facility] [address] [address] Abbi Choudhary M.D. [id number] nitrogen/Creatinine [Mass ratio]16.7 mg/qfYgtitl77.0-20.0[facility] on above:Order Comment: [facility] has implemented the eGFR calculation approach that does not have a coefficient for race that conforms to the NKF-ASN Task Force Recommendations.Performed By: #### [id number] ####[facility] [address] [address] Abbi Choudhary M.D. [id number] GAS, VENOUSon 83-91-0669VMUO EXCESS, VENOUS-3.8Low-2.0-2.0[facility] HospitalComment on above:Performed By: #### [id number] ####[facility] [address] [place], [place] [address] Abbi Choudhary M.D. [id number] (Bld) [Moles/Vol]22.3 mmol/LLow24.0-28.0 [facility] HospitalComment on above:Performed By: #### [id number] ####[facility] [address] [address] Abbi Choudhary M.D. [id number] (Bld) [Volume fraction]40.0 %Fonjpi50.0-46.0[facility] Bee[facility] GroveComment on above:Performed By: #### [id number] ####[facility] [address] [address] Abbi Choudhary M.D. [id number] (Bld) [Mass/Vol]13.0 g/dLNormal 12.0-16.0[facility] Bee[facility] GroveComment on above:Performed By: #### [id number] ####[facility] [address] [address] Abbi Choudhary M.D. 36D0 441800Awgaav saturation in Blood69.9 %Ardlma68.0-70.0[facility] Comment on above:Performed By: #### [id number] ####[facility] [address] [address] Abbi Choudhary M.D. [id number] ONOJAN10.4 mm BvUccyrj78.0-51.0 [facility] Bee[facility] GroveComment on above:Performed By: #### [id number] ####[facility] [address] [address] Abbi Choudhary M.D. [id number] VENOUS 7.30Low7.32-7.42[facility] Beech GroveComment on above:Performed By: #### [id number] ####[facility] [address] [place], [place] [address] Abbi Choudhary M.D. 36D0 360001IY6 QNEZSX34 mm IaJwjc26-52VfpguqSelect Specialty Hospital - Beech GroveComment on above: Performed By: #### [id number] ####[facility] [address] [place], [place] [address] Abbi Choudhary M.D. [id number] metabolic 2000 panelOrdered By: Kendra Bae on 34-26-1145Gimgn gap [Moles/Vol]20 mmol/L10 - 20 mmol/LOhioHealthCalcium [Mass/Vol]9.3 mg/dL8.4 - 10.2 mg/dLOhioHealthChloride [Moles/Vol]97 mmol/LLow98 - 108 mmol/LOhioHealthCreatinine [Mass/Vol]1.44 mg/dLHigh0.40 - 1.10 mg/dL OhioHealthGFR/1.73 sq M.predicted CKD-EPI (S/P/Bld) [Vol rate/Area]46Low- PINF OhioHealthGlucose [Mass/Vol]646 mg/dLCritically high65 - 99 mg/dLOhioHealthHCO3 [Moles/Vol]22 mmol/L21 - 32 mmol/LOhioHealthInterpretation and review of laboratory resultsAbnormalOhioHealthPotassium [Moles/Vol]4.6 mmol/L3.5 - 5.1 mmol/LOhioHealthSodium [Moles/Vol]134 mmol/SCmd511 - 145 mmol/LOhioHealthUrea nitrogen [Mass/Vol]24 mg/dL8 - 25 mg/dLOhioHealthUrea nitrogen/Creatinine [Mass ratio]16.7 mg/mg10.0 - 20.0OhioHealthOhioHealthOhioHealthCBC Auto Differentialon 90-07-5512Pbrjpadcv (Bld) [#/Vol]0.06 10*3/uLOhioHealthBasophils/100 WBC (Bld) 0.6 %OhioHealthEosinophils (Bld) [#/Vol]0.33 10*3/uLOhioHealthEosinophils/100 WBC (Bld)3.5 %OhioHealthErythrocyte distribution width (RBC) [Entitic vol]13 % 11.6 - 14.8 %OhioHealthHematocrit (Bld) [Volume fraction]37.6 %36.0 - 46.0 % OhioHealthHemoglobin (Bld) [Mass/Vol]12.5 g/dL12.0 - 16.0 g/dLOhioHealthImmature granulocytes (Bld) [#/Vol]0.05 10*3/uLOhioHealthImmature granulocytes/100 WBC (Bld)0.5 %OhioHealthInterpretation and review of laboratory resultsAbnormal OhioHealthLymphocytes (Bld) [#/Vol]1.34 10*3/uLOhioHealthLymphocytes/100 WBC (Bld)14 %OhioHealthMCH (RBC) [Entitic mass]30.3 pg26.0 - 34.0 pgOhioHealthMCHC (RBC) [Mass/Vol]33.2 g/dL31.0 - 37.0 g/dLOhioHealthMCV (RBC) [Entitic vol]91 fL 80.0 - 100.0 fLOhioHealthMonocytes (Bld) [#/Vol]0.43 10*3/uLOhioHealth Monocytes/100 WBC (Bld)4.5 %OhioHealthNeutrophils (Bld) [#/Vol]7.35 10*3/uLHigh OhioHealthNeutrophils/100 WBC (Bld)76.9 %OhioHealthNucleated RBC (Bld) [#/Vol]0 10*3/uLOhioHealthNucleated RBC/100 WBC (Bld) [Ratio]0 %OhioHealthPlatelet mean volume (Bld) [Entitic vol]9.4 fL9.4 - 12.4 fLOhioHealthPlatelets (Bld) [#/Vol] 371 10*3/uLOhioHealthRBC (Bld) [#/Vol]4.13 10*6/uLOhioHealthWBC (Bld) [#/Vol] 9.56 10*3/uLOhioHealthOhioHealthCBC WITH AUTO DIFFERENTIALon 83-41-9887OLNC NRBC 0.0 %[facility] HospitalComment on above:Performed By: #### [id number] ####[facility] [address] [address] Abbi Choudhary M.D. 36 [id number] NRBC ABS COUNT0.00 K/mcLNormal0.00-0.00[facility] Comment on above:Performed By: #### [id number] ####[facility] [address] [address] Abbi Choudhary M.D. [id number] ABSOLUTE COUNT0.06 K/mcL Normal0.00-0.30[facility] HospitalComment on above:Performed By: #### [id number] ####[facility] [address] [address] Abbi Choudhary M.D. [id number]/100 WBC (Bld)0.6 %[facility] HospitalComment on above:Performed By: #### [id number] ####[facility] [address] [address] Abbi Choudhary M.D. [id number] (Bld) [#/Vol]0.33 10*3/uLNormal 0.00-0.50[facility] GroveComment on above:Performed By: #### [id number] ####[facility] [address] [address] Abbi Choudhary M.D. 36 [id number]/100 WBC (Bld)3.5 %[facility] HospitalComment on above:Performed By: #### [id number] ####[facility] [address] [address] Abbi Choudhary M.D. [id number] distribution width (RBC) [Ratio] 13.0 %Nwypss09.6-14.8[facility] GroveComment on above:Performed By: #### [id number] ####[facility] [address] [address] Abbi Choudhary M.D. [id number] (Bld) [Volume fraction]37.6 %Dqsaat46.0-46.0[facility] GroveComment on above:Performed By: #### [id number] ####[facility] [address] [address] Abbi Choudhary M.D. [id number] (Bld) [Mass/Vol]12.5 g/dFMugxqx77.0-16.0[facility] GroveComment on above: Performed By: #### [id number] ####[facility] [address] [address] Abbi Choudhary M.D. [id number] ABSOLUTE0.05 K/mcLNormal0.00-0.30[facility] GroveComment on above:Performed By: #### [id number] ####[facility] [address] [address] Abbi Choudhary M.D. [id number] PERCENT0.50 % NormalSelect Specialty Hospital - Beech GroveComment on above:Result Comment: The IG parameter is the percentage of metamyelocytes, myelocytes and promyelocytes.An immature granulocyte count (IG) of 1% or more suggests the possibility of infection, an IG countof 3% is very likely related to an infection.Performed By: #### [id number] ####[facility] [address] [address] Abbi Choudhary M.D. 36 [id number] (Bld) [#/Vol]1.34 10*3/uLNormal0.90-4.00[facility] GroveComment on above:Performed By: #### [id number] ####[facility] [address] [address] Abbi Choudhary M.D. [id number]/100 WBC (Bld) 14.0 %[facility] HospitalComment on above:Performed By: #### [id number] ####[facility] [address] [address] Abbi Choudhary M.D. 36 [id number] (RBC) [Entitic mass]30.3 hbAprezv54.0-34.0[facility] Comment on above:Performed By: #### [id number] ####[facility] [address] [address] Abbi Choudhary M.D. [id number] (RBC) [Entitic vol]91.0 fLNormal 80.0-100.0[facility] Bee[facility] GroveComment on above:Performed By: #### [id number] ####[facility] [address] [address] Abbi Choudhary M.D. 36 [id number] CORPUSCULAR HEMOGLOBIN CONC33.2 g/jUAxmtxu18.0-37.0[facility] Bee[facility] GroveComment on above:Performed By: #### [id number] ####[facility] [address] [address] Abbi Choudhary M.D. [id number] (Bld) [#/Vol] 0.43 10*3/uLNormal0.30-0.90[facility] Bee[facility] GroveComment on above:Performed By: #### [id number] ####[facility] [address] [address] Abbi Choudhary M.D. [id number]/100 WBC (Bld)4.5 %NormalSelect Specialty Hospital - Beech GroveComment on above:Performed By: #### [id number] ####[facility] [address] [address] Abbi Choudhary M.D. [id number] ABSOLUTE COUNT7.35 K/mcLHigh 1.70-7.00[facility] Bee[facility] GroveComment on above:Performed By: #### [id number] ####[facility] [address] [address] Abbi Choudhary M.D. 36 [id number]/100 WBC (Bld)76.9 %NormalSelect Specialty Hospital - Beech GroveComment on above:Performed By: #### [id number] ####[facility] [address] [address] Abbi Choudhary M.D. [id number] mean volume (Bld) [Entitic vol]9.4 fLNormal9.4-12.4[facility] HospitalComment on above:Performed By: #### [id number] ####[facility] [address] [place], [place] [address] Abbi Choudhary M.D. [id number] (Bld) [#/Vol]371 10*3/iEUvecyz245-982GbduzjSelect Specialty Hospital - [place] [place] Comment on above:Performed By: #### [id number] #### [facility] [address] [address] Abbi Choudhary M.D. [id number] (Bld) [#/Vol]4.13 10*6/uLNormal 4.00-5.20[facility] Bee[facility] GroveComment on above:Performed By: #### [id number] #### [facility] [address] [address] Abbi Choudhary M.D. 36 [id number] (Bld) [#/Vol]9.56 10*3/uLNormal4.50-11.00[facility] Comment on above:Performed By: #### [id number] ####[facility] [address] [place], [place] [address] Abbi Choudhayr M.D. [id number] [Mass/Vol]on 03-24-2024 Interpretation and review of laboratory resultsAbnormalOhioHealthOhioHealthCRP, INFLAMMATIONon 84-18-4659RAL [Mass/Vol]15.1 mg/LHigh0.0-10.0[facility] Bee[facility] GroveComascension stand[facility] on above:Performed By: #### [id number] ####[facility] [address] [address] Abbi Choudhary M.D. [id number], Inflammationon 07-72-4561XWG [Mass/Vol]15.1 mg/LHigh0.0 - 10.0 mg/LOhioHealthED Prov Noteon 21-70-4796SH Prov NoteNoalSelect Specialty Hospital - Beech GroveESR Westergren method (Bld) [Velocity]on 34-42-0860WEL (Bld) [Velocity]62 mm/hHighOhioHealthInterpretation and review of laboratory resultsAbnormalOhioHealthOhioHealthGas panel (BldV)on 24-20-0312Trxw excess Calc (BldV) [Moles/Vol]-3.8000 mmol/LLow-2.0 - 2.0 OhioHealthCO2 (BldV) [Partial pressure]47.4 mm[Hg]OhioHealthHCO3 (Bld) [Moles/Vol]22.3 mmol/LLow24.0 - 28.0 mmol/LOhioHealthHematocrit (BldA) [Volume fraction]40 %36.0 - 46.0 %OhioHealthHemoglobin (Bld) [Mass/Vol]13 g/dL12.0 - 16.0 g/dLOhioHealthInterpretation and review of laboratory resultsAbnormal OhioHealthOxygen (BldV) [Partial pressure]41 mm[Hg]HighOhioHealthOxygen saturation in Venous blood69.9 %40.0 - 70.0 %OhioHealthpH (BldV)7.3 [pH]Low7.32 - 7.42OhioHealthOhioHealthHEPATIC FUNCTION PANELon 25-30-2968Yacefcq [Mass/Vol] 4.2 g/dLNormal3.2-5.2MColumbus Regional HealthComment on above:Performed By: #### [id number] #### LAB [address] [address] Abbi Choudhary M.D. [id number] [Catalytic activity/Vol]139 U/HPdxcbb02-103XxccixSelect Specialty Hospital - [facility] Comment on above:Performed By: #### 78800 ####[facility] [address] [address] Abbi Choudhary M.D. [id number] [Catalytic activity/Vol]16 U/L Normal0-35 U/[facility] IndianaComment on above:Performed By: #### 82091 #### LAB [address] [address] Abbi Choudhary M.D. 36D0 539930JQW [Catalytic activity/Vol]16 U/LNormal0-35 U/[facility] Comment on above:Performed By: #### 13702 ####[facility] [address] [address] Abbi Choudhary M.D. [id number] [Mass/Vol]0.5 mg/dLNormal 0.0-1.3MColumbus Regional HealthComment on above:Performed By: #### 40385 ####[facility] [address] [place], [place] [address] Abbi Choudhary M.D. [id number] BILIRUBIN, DIRECT<Normal0.0-0.4[facility] Bee[facility] GroveComment on above:Performed By: #### 05825 ####MGNicole LAB [address] [address] Abbi Choudhary M.D. [id number] [Mass/Vol]8.1 g/dLHigh6.0-8.0[facility] Comment on above:Performed By: #### 59730 ####[facility] [address] [address] Abbi Choudhary M.D. [id number] function 2000 panelon 53-97-1552Kxrbjfj [Mass/Vol]4.2 g/dL3.2 - 5.2 g/dLOhioHealthALP [Catalytic activity/Vol]139 U/L40 - 150 U/LOhioHealthALT [Catalytic activity/Vol]16 U/L0-35 U/LOhioHealthAST [Catalytic activity/Vol]16 U/L0-35 U/LOhioHealthBilirubin [Mass/Vol]0.5 mg/dL0.0 - 1.3 mg/dLOhioHealthBilirubin.conjugated [Mass/Vol]mg/dL 0.0 - 0.4 mg/dLOhioHealthInterpretation and review of laboratory resultsAbnormal OhioHealthProtein [Mass/Vol]8.1 g/dLHigh6.0 - 8.0 g/dLOhioHealthOhioHealthLACTIC ACID, WHOLE BLOODon 21-27-8288FHSNAN ACID, WHOLE BLOOD3.0 mmol/LHigh0.6-2.0 [facility] GroveComment on above:Performed By: #### [id number] ####[facility] [address] [place], [place] [address] Abbi Choudhary M.D. [id number] (Bld) [Moles/Vol]on 21-40-8614Fhidectksopskj and review of laboratory results AbnormalOhioHealthLactate [Moles/Vol]3 mmol/LHigh0.6 - 2.0 mmol/LOhioHealth [facility] PrebleLight Blue Topon 67-06-5857Qsaag TubeHold for add-ons.[facility] PrebleNo Panel Informationon 28-58-0440CydrShxptfLCFRPJKIUPDTY RATEon 03-24-2024 SEDIMENTATION RATE, LUKJMBEOJUX04 mm/hrHigh0-20[facility] GroveComment on above:Performed By: #### 09913 ####[facility] [address] [place], [place] [address] Abbi Choudhary M.D. [id number] 79-56-1337NCFDHMYS TROPONIN T NG/L22 ng/LOff scale high<=14[facility] Bee[facility] GroveComment on above:Performed By: #### [id number] ####[facility] [address] [address] Abbi Choudhary M.D. [id number] T INTERPRETATIONPossible acute cardiac injury.Normal [facility] Bee[facility] GroveComment on above:Performed By: #### [id number] ####[facility] [address] [place], [place] [address] Abbi Choudhary M.D. [id number] 53-20-0215Hvwxafygkecgua and review of laboratory resultsAbnormalOhioHealth Troponin T22 ng/LCritically highNINF - 14 ng/LOhioHealthTroponin T InterpretationPossible acute cardiac injury.[facility] CenterioHealthXR Finger - left 2 Viewson 60-75-9796HM [facility] RISOhioHealthRadiology Study observation (narrative)[facility] PrebleXR Finger - left 2 ViewsOrdered By: Mayco Cortez on 52-13-4330IpgeOaqyrf Work Phone: XR TOE(S) LEFT 2+ VIEWSon 39-06-6414QF TOE(S) LEFT 2+ VIEWSNormalSelect Specialty Hospital - Beech GroveComment on above:Order Comment: Injury/Trauma or Illness?:Illness/OtherHow long have you had these symptoms (acute/ch ronic)?:AcuteReason for exam?:pain/ reoccuring infectionHistory of cancer?:uSurgeries, chemotherapy, or radiation?:pacemakerType of Exam?:InitialAdditional signs and symptoms?:pain/infectionHEMOGLOBIN A1con 98-14-9813PJXIHATYVF A1c9.9 % of total HgbHigh<5.7Quest DiagnosticsComment on above:Result Comment: For someone without known diabetes, a [...] hemoglobin A1c for diagnosis of diabetes for children.Performed By: #### 496, [id number] #### [facility] [address], [address] [place] [address] Relay Tester Helper: Dean Maddox MDVITAMIN D,25-OH,TOTAL,IAon 44-12-5198HURFFKU D,25-OH,TOTAL,IA11 ng/vEBxb87-509Pjdmr DiagnosticsComment on above:Result Comment: Vitamin D Status 25-OH Vitamin D: Deficiency: <20 ng/mL Insufficiency: 20 - 29 ng/mL Optimal: > or = 30 ng/mL For 25-OH Vitamin D testing on patients on D2-supplementation and patients for whom quantitation of D2 and D3 fractions is required, the QuestAssureD(TM) 25-OH VIT D, (D2,D3), LC/MS/MS is recommended: order code 75444 (patients >2yrs). See Note 1 Note 1 For additional information, please refer to http://education.trakk[employer] Research.Phone Warrior/faq/ADX262 (This link is being provided for informational/ educational purposes only.)Performed By: #### 496, 97022 #### [facility] [address], [address] [place] [address] Relay Tester Helper: Dean Maddox MDB12/FOLATEon 93-68-7213Mtwlmszsp (Vitamin B12) [Mass/Vol]203 pg/cKTdy940-7503FuvoniSelect Specialty Hospital - Beech GroveComment on above:Performed By: #### 01430 ####MG LAB [address] [address] Abbi Choudhary M.D. [id number] ng/mLNormal3.1-17.5[facility] Bee[facility] GroveComment on above:Result Comment: Deficient <2.2Borderline 2.2 - 3.0Excessive >17.5 Performed By: #### 33290 ####MG LAB [address] [address] Abbi Choudhary M.D. [id number]/Folateon 13-42-6680Emplcgoom (Vitamin B12) [Mass/Vol]203 pg/aOVsq498 - 1245 pg/mLOhioHealthFolate [Mass/Vol]9.1 ng/mL3.1 - 17.5 ng/mLOhioHealthComment on above:Deficient <2.2 Borderline 2.2 - 3.0 Excessive >17.5 Interpretation and review of laboratory resultsAbnormalOhioHealthOhioHealth HEPATIC FUNCTION PANELon 80-53-1114Qgcjtyq [Mass/Vol]4.0 g/dLNormal3.2-5.2MColumbus Regional HealthComment on above:Performed By: #### 29204 ####MG LAB [address] [address] Abbi Choudhary M.D. [id number] [Catalytic activity/Vol]139 U/JKtvswx88-786YodenpSelect Specialty Hospital - Beech GroveComment on above: Performed By: #### 38138 ####MG LAB [address] [place], [place] [address] Abbi Choudhary M.D. [id number] [Catalytic activity/Vol]13 U/LNormal0-35 U/[facility] HospitalComment on above:Performed By: #### 81531 ####MG LAB [address] [address] Abbi Choudhary M.D. [id number] [Catalytic activity/Vol]17 U/LNormal0-35 U/[facility] HospitalComment on above:Result Comment: Slightly HemolyzedPerformed By: #### 11209 ####MG LAB [address] [place], [place] [address] Abbi Choudhary M.D. [id number] [Mass/Vol]0.4 mg/dLNormal0.0-1.3Mpike community hospitaln [facility] HospitalComment on above:Performed By: #### 25148 ####MG LAB [address] [address] Abib Choudhary M.D. [id number], DIRECT<Normal0.0-0.4[facility] Bee[facility] GroveComment on above:Performed By: #### 53374 ####[facility] [address] [address] Abbi Choudhary M.D. [id number] [Mass/Vol]7.3 g/dLNormal6.0-8.0[facility] Bee[facility] GroveComment on above:Performed By: #### 94458 ####[facility] [address] [address] Abbi Choudhary M.D. [id number] function 1999 panelOrdered By: Shy Chou on 74-17-5312Kgtdtol [Mass/Vol]4.0 g/dL 3.2 - 5.2 g/dLOhioHealthALP [Catalytic activity/Vol]139 U/L40 - 150 U/L OhioHealthALT [Catalytic activity/Vol]13 U/L0-35 U/LOhioHealthAST [Catalytic activity/Vol]17 U/L0-35 U/LOhioHealthComment on above:Slightly Hemolyzed Bilirubin [Mass/Vol]0.4 mg/dL0.0 - 1.3 mg/dLOhioHealthBilirubin.conjugated [Mass/Vol]mg/dL0.0 - 0.4 mg/dLOhioHealthInterpretation and review of laboratory resultsNormalOhioHealthProtein [Mass/Vol]7.3 g/dL6.0 - 8.0 g/dLOhioHealth [facility] PrebleT4, [facility] 13-12-7397Whox T4 [Mass/Vol]0.9 ng/dLNormal0.7-1.7[facility] GroveComment on above:Performed By: #### 91725 ####[facility] [address] [address] Abbi Choudhary M.D. [id number] WITH REFLEX FREE T4on 93-87-7639LNM Qn4.58 m[IU]/LHigh0.27-4.20[facility] Comment on above:Performed By: #### 46275 ####[facility] [address] [address] Abbi Choudhary M.D. [id number] 58-55-7451YDKO NRBC0.0 %Normal [facility] Bee[facility] GroveComment on above:Performed By: #### 99736 ####[facility] [address] [address] Abbi Choudhary M.D. [id number] NRBC ABS COUNT0.00 K/mcLNormal0.00-0.00[facility] Bee[facility] GroveComment on above: Performed By: #### 29126 ####[facility] [address] [address] Abbi Choudhary M.D. [id number] distribution width (RBC) [Ratio]12.9 % Ocrxyd91.6-14.8[facility] - Beech GroveComment on above:Performed By: #### 37361 ####[facility] [address] [address]Alisia Choudhary M.D. 36D0 923368Cnntldhpzj (Bld) [Volume fraction]29.3 %Low36.0-46.0[facility] Beech GroveComment on above:Performed By: #### 32557 ####[facility] [address] [address] Abbi Choudhary M.D. [id number] (Bld) [Mass/Vol]9.1 g/dLLow12.0-16.0[facility] Bee[facility] GroveComment on above:Performed By: #### 57906 ####[facility] [address] [address] Abbi Choudhary M.D. [id number] (RBC) [Entitic mass]30.2 caAhpjqj28.0-34.0[facility] Comment on above:Performed By: #### 95464 ####[facility] [address] [address] Abbi Choudhary M.D. [id number] (RBC) [Entitic vol]97.3 fLNormal 80.0-100.0[facility] Bee[facility] GroveComment on above:Performed By: #### 46013 ####[facility] [address] [address] Abbi Choudhary M.D. 36D0 [id number] CORPUSCULAR HEMOGLOBIN CONC31.1 g/qNOddnbm89.0-37.0[facility] Bee[facility] GroveComment on above:Performed By: #### 74162 ####[facility] [address] [address] Abbi Choudhary M.D. [id number] mean volume (Bld) [Entitic vol]9.1 fLLow9.4-12.4[facility] Bee[facility] GroveComment on above:Performed By: #### 56830 ####[facility] [address] [address] Abbi Choudhary M.D. [id number] (Bld) [#/Vol]255 10*3/aAEaizrg914-441SkvfzwSelect Specialty Hospital - Beech GroveComment on above:Performed By: #### 77588 ####[facility] [address] [address] Abbi Choudhary M.D. [id number] (Bld) [#/Vol]3.01 10*6/uL Low4.00-5.20[facility] Beech GroveComment on above:Performed By: #### 17281 ####[facility] [address] [address] Abbi Choudhary M.D. 36D0 565557TAX (Bld) [#/Vol]7.67 10*3/uLNormal4.50-11.00[facility] Comment on above:Performed By: #### 17538 ####[facility] [address] [address] Abbi Choudhary M.D. [id number] panel Auto (Bld)on 01-18-2024 Erythrocyte distribution width (RBC) [Entitic vol]12.9 %11.6 - 14.8 %[facility] Hematocrit (Bld) [Volume fraction]29.3 %Low36.0 - 46.0 %OhioHealthHemoglobin (Bld) [Mass/Vol]9.1 g/dLLow12.0 - 16.0 g/dLOhioHealthInterpretation and review of laboratory resultsAbnormalOhioHealthMCH (RBC) [Entitic mass]30.2 pg26.0 - 34.0 pgOhioHealthMCHC (RBC) [Mass/Vol]31.1 g/dL31.0 - 37.0 g/dLOhioHealthMCV (RBC) [Entitic vol]97.3 fL80.0 - 100.0 fLOhioHealthNucleated RBC (Bld) [#/Vol] 0.00 10*3/uLOhioHealthNucleated RBC/100 WBC (Bld) [Ratio]0.0 %OhioHealthPlatelet mean volume (Bld) [Entitic vol]9.1 fLLow9.4 - 12.4 fLOhioHealthPlatelets (Bld) [#/Vol]255 10*3/uLOhioHealthRBC (Bld) [#/Vol]3.01 10*6/uLLowOhioHealthWBC (Bld) [#/Vol]7.67 10*3/uLOhioHealthOhioHealthDisch [facility] 92-70-9163JfbwhMercy Health Clermont HospitalGlucose (Bld) [Mass/Vol]on 30-93-5562Txkizfy [Mass/Vol]82 mg/dL65 - 99 mg/dLOhioHealthInterpretation and review of laboratory results NormalOhioHealthOhioHealthGlucose [Mass/Vol]71 mg/dL65 - 99 mg/dLOhioHealth Interpretation and review of laboratory resultsNormalOhioHealthOhioHealthGlucose [Mass/Vol]66 mg/dL65 - 99 mg/dLOhioHealthInterpretation and review of laboratory resultsNormalOMercy Health St. [facility] GLUCOSE [facility] 01-18-2024 Glucose [Mass/Vol]82 mg/wFLcmeom96-36DaghyyColumbus Regional HealthComment on above: Performed By: #### 97901 ####MG LAB [address] [place], [place] [address] Abbi Choudhary M.D. [id number] [Mass/Vol]71 mg/kDLjqkvl30-69Zruxq[address] [place], [place] [address]Comment on above:Performed By: #### 65113 ####MG [facility] [address] [place], [place] [address] Abbi Choudhary M.D. [id number] [Mass/Vol]66 mg/dL Rsilbo87-80SygpgvColumbus Regional HealthComment on above:Performed By: #### 72072 ####[facility] [address] [place], [place] [address] Abbi Choudhary M.D. 36D0 706304NBPPL FUNCTION PANELon 58-88-9404Urhfgau [Mass/Vol]3.2 g/dLNormal3.2-5.2 [facility] Bee[facility] GroveComment on above:Order Comment: [facility] has implemented the eGFR calculation approach that does not have a coefficient for race that conforms to the NKF-ASN Task Force Recommendations. Performed By: #### 47693 ####MG LAB [address] [place], [place] [address] Abbi Choudhary M.D. [id number] gap [Moles/Vol]12 mmol/JVugymv50-57TzhdybSelect Specialty Hospital - Beech GroveComment on above:Order Comment: [facility] has implemented the eGFR calculation approach that does not have a coefficient for race that conforms to the NKF-ASN Task Force Recommendations.Performed By: #### 16161 ####[facility] [address] [place], [place] [address] Abbi Choudhary M.D. [id number] [Mass/Vol]8.6 mg/dLNormal8.4-10.2MColumbus Regional Health Comment on above:Order Comment: [facility] has implemented the eGFR calculation approach that does not have a coefficient for race that conforms to the NKF-ASN Task Force Recommendations.Performed By: #### 30638 ####MG LAB [address] [place], [place] [address] Abbi Choudhary M.D. 36D0 924226Rrrwjxfq [Moles/Vol]112 mmol/ZWgyy46-499UocpafMargaret Mary Community Hospital on above:Order Comment: [facility] has implemented the eGFR calculation approach that does not have a coefficient for race that conforms to the NKF-ASN Task Force Recommendations.Performed By: #### 01672 ####[facility] [address] [address] Abbi Choudhary M.D. [id number] [Mass/Vol]1.67 mg/dLHigh0.40-1.10[facility] on above:Order Comment: [facility] has implemented the eGFR calculation approach that does not have a coefficient for race that conforms to the NKF-ASN Task Force Recommendations.Performed By: #### 53787 ####[facility] [address] [place], [place] [address] Abbi Choudhary M.D. [id number] mL/min/1.73 m2Low >=60[facility] on above:Order Comment: [facility] has implemented the eGFR calculation approach that does not have a coefficient for race that conforms to the NKF-ASN Task Force Recommendations. Result Comment: Estimated GFR was calculated using the 2020 CKD-EPI creatinine equation.Performed By: #### [id number] ####MG LAB [address] [place], [place] [address] Abbi Choudhary M.D. [id number] [Mass/Vol]78 mg/gLZyjckc37-84XdwngoRiley Hospital for Children on above:Order Comment: [facility] has implemented the eGFR calculation approach that does not have a coefficient for race that conforms to the NKF-ASN Task Force Recommendations.Performed By: #### 19721 ####MG LAB [address] [place], [place] [address] Abbi Choudhary M.D. [id number] (Bld) [Moles/Vol]24 mmol/DFgrdtq71-94HuzsjjSelect Specialty Hospital - [facility] Comment on above:Order Comment: [facility] has implemented the eGFR calculation approach that does not have a coefficient for race that conforms to the NKF-ASN Task Force Recommendations.Performed By: #### [id number] ####MG LAB [address] [address] Abbi Choudhary M.D. 36D0 708756Ropczaoka [Mass/Vol]3.9 mg/dLNormal2.7-4.5[facility] on above:Order Comment: [facility] has implemented the eGFR calculation approach that does not have a coefficient for race that conforms to the NKF-ASN Task Force Recommendations.Performed By: #### 98288 ####[facility] [address] [place] [address] Abbi Choudhary M.D. [id number] [Moles/Vol]4.6 mmol/LNormal3.5-5.1MColumbus Regional HealthComment on above:Order Comment: [facility] has implemented the eGFR calculation approach that does not have a coefficient for race that conforms to the NKF-ASN Task Force Recommendations.Performed By: #### 78616 ####[facility] [address] [place] [address] Abbi Choudhary M.D. [id number] [Moles/Vol]143 mmol/DXdrzhg652-834IutdujSelect Specialty Hospital - Beech GroveComascension standish hospital on above:Order Comment: [facility] has implemented the eGFR calculation approach that does not have a coefficient for race that conforms to the NKF-ASN Task Force Recommendations.Performed By: #### 04329 ####MG LAB [address] [address] Abbi Choudhary M.D. [id number] nitrogen [Mass/Vol]34 mg/dLHigh8-25[facility] on above:Order Comment: [facility] has implemented the eGFR calculation approach that does not have a coefficient for race that conforms to the NKF-ASN Task Force Recommendations.Performed By: #### 52613 ####[facility] [address] [place], [place] [address] Abbi Choudhary M.D. [id number] nitrogen/Creatinine [Mass ratio]20.4 mg/fwXfsf32.0-20.0[facility] Beech GroveComment on above:Order Comment: [facility] has implemented the eGFR calculation approach that does not have a coefficient for race that conforms to the NKF-ASN Task Force Recommendations.Performed By: #### 76172 ####[facility] [address] [place], [place] [address] Abbi Choudhary M.D. [id number] function 2000 panel on 74-63-1700Tbbcatq [Mass/Vol]3.2 g/dL3.2 - 5.2 g/dLOhioHealthAnion gap [Moles/Vol]12 mmol/L10 - 20 mmol/LOhioHealthCalcium [Mass/Vol]8.6 mg/dL8.4 - 10.2 mg/dLOhioHealthChloride [Moles/Vol]112 mmol/LHigh98 - 108 mmol/LOhioHealth Creatinine [Mass/Vol]1.67 mg/dLHigh0.40 - 1.10 mg/dLOhioHealthGFR/1.73 sq M.predicted CKD-EPI (S/P/Bld) [Vol rate/Area]38Low- PINFOhioHealthComment on above:Estimated GFR was calculated using the 2020 CKD-EPI creatinine equation. Glucose [Mass/Vol]78 mg/dL65 - 99 mg/dLOhioHealthHCO3 [Moles/Vol]24 mmol/L21 - 32 mmol/LOhioHealthInterpretation and review of laboratory resultsAbnormal OhioHealthPhosphate [Mass/Vol]3.9 mg/dL2.7 - 4.5 mg/dLOhioHealthPotassium [Moles/Vol]4.6 mmol/L3.5 - 5.1 mmol/LOhioHealthSodium [Moles/Vol]143 mmol/L135 - 145 mmol/LOhioHealthUrea nitrogen [Mass/Vol]34 mg/dLHigh8 - 25 mg/dLOhioHealth Urea nitrogen/Creatinine [Mass ratio]20.4 mg/phGhyo84.0 - 20.0OhioHealth [facility] has implemented the eGFR calculation approach that does not have a coefficient for race that conforms to the NKF-ASN Task Force Recommendations.[facility] PrebleOhioHealthUS Kidney - bilateral and Urinary bladderon 01-18-2024 1. Normal renal ultrasound. [employer] Workstation ID: [id number] RISEXAMINATION: US RENAL AND BLADDER HISTORY: SOLO Dx: [...] bladder filling defects. Bladder volume: 80 mL Anant Ascencio MD - 01/18/2024 EXAMINATION: US RENAL AND [...] 80 mL IMPRESSION: 1. Normal renal ultrasound. [employer] Workstation ID: [id number] [facility] PrebleUS Kidney - bilateral and Urinary bladderOrdered By: Anant Bonds on 24-62-1601UsvkWvgsjl Work Phone: CBGr[facility] [phone] NRBC0.0 %[facility] County [facility] HospitalComment on above:Performed By: #### [id number] ####[facility] [address] [address] Abbi Choudhary M.D. [id number] NRBC ABS COUNT0.00 K/mcL Normal0.00-0.00[facility] Beech GroveComment on above:Performed By: #### [id number] ####[facility] [address] [address] Abbi Choudhary M.D. 36D0 575412Zttsoelmdri distribution width (RBC) [Ratio]13.1 %Vfpomm14.6-14.8[facility] HospitalComment on above:Performed By: #### 57566 ####[facility] [address] [address] Abbi Choudhary M.D. [id number] (Bld) [Volume fraction]28.9 %Low36.0-46.0[facility] HospitalComment on above: Performed By: #### 28923 ####[facility] [address] [address] Abbi Choudhary M.D. [id number] (Bld) [Mass/Vol]9.3 g/dLLow12.0-16.0[facility] Bee[facility] GroveComment on above:Performed By: #### 91235 ####[facility] [address] [address] Abbi Choudhary M.D. [id number] (RBC) [Entitic mass]30.9 guXctfna45.0-34.0[facility] GroveComment on above: Performed By: #### 47704 ####[facility] [address] [address] Abbi Choudhary M.D. [id number] (RBC) [Entitic vol]96.0 lWWefmnq38.0-100.0[facility] Bee[facility] GroveComment on above:Performed By: #### 36915 ####[facility] [address] [address] Abbi Choudhary M.D. [id number] CORPUSCULAR HEMOGLOBIN CONC32.2 g/rAHrlnim64.0-37.0[facility] Bee[facility] GroveComment on above: Performed By: #### 98658 ####[facility] [address] [address] Abbi Choudhary M.D. [id number] mean volume (Bld) [Entitic vol]9.9 fLNormal 9.4-12.4[facility] Bee[facility] GroveComment on above:Performed By: #### 72263 ####[facility] [address] [address] Abbi Choudhary M.D. [id number] Platelets (Bld) [#/Vol]259 10*3/dXVfhpnd113-595HkzvfkSelect Specialty Hospital - Beech GroveComment on above:Performed By: #### 40056 ####[facility] [address] [address] Abbi Choudhary M.D. [id number] (Bld) [#/Vol]3.01 10*6/uLLow4.00-5.20 [facility] GroveComasc[facility] standish hospital on above:Performed By: #### 45526 ####[facility] [address] [address] Abbi Choudhary M.D. [id number] (Bld) [#/Vol]7.74 10*3/uLNormal4.50-11.00[facility] GroveComascension standish hospital on above: Performed By: #### 45524 ####[facility] [address] [address] Abbi Choudhary M.D. [id number] panel Auto (Bld)on 47-41-4842Iwqthjdjvnu distribution width (RBC) [Entitic vol]13.1 %11.6 - 14.8 %OhioHealthHematocrit (Bld) [Volume fraction]28.9 %Low36.0 - 46.0 %OhioHealthHemoglobin (Bld) [Mass/Vol]9.3 g/dLLow12.0 - 16.0 g/dLOhioHealthInterpretation and review of laboratory resultsAbnormalOhioHealthMCH (RBC) [Entitic mass]30.9 pg26.0 - 34.0 pgOhioHealthMCHC (RBC) [Mass/Vol]32.2 g/dL31.0 - 37.0 g/dLOhioHealthMCV (RBC) [Entitic vol]96.0 fL80.0 - 100.0 fLOhioHealthNucleated RBC (Bld) [#/Vol]0.00 10*3/uLOhioHealthNucleated RBC/100 WBC (Bld) [Ratio]0.0 %OhioHealthPlatelet mean volume (Bld) [Entitic vol]9.9 fL9.4 - 12.4 fLOhioHealthPlatelets (Bld) [#/Vol] 259 10*3/uLOhioHealthRBC (Bld) [#/Vol]3.01 10*6/uLLowOhioHealthWBC (Bld) [#/Vol] 7.74 10*3/uLOhioHealthOhioHealthCT HEAD WITHOUT CONTRAST (STROKE)on [id number] HEAD WITHOUT CONTRAST (STROKE)[facility] HospitalComment on above: Order Comment: Injury/Trauma or Illness?:Illness/OtherHow long have you had these symptoms (acute/chronic)?:AcuteReason for exam?:L sided parathesias, change in mentationType of Exam?:InitialAdditional signs and symptoms?:naCT Head WO contraston 01-17-2024 Negative for acute hemorrhage or acute intracranial process. Workstation ID: [id number] RISEXAMINATION: CT HEAD WITHOUT CONTRAST (STROKE) HISTORY: ORDERING [...] diabetic polyneuropathy, with long-term current use of insulin(HCC) Z79.4 Type 2 diabetes mellitus with diabetic polyneuropathy, with long-term current use of insulin (HCC) COMPARISON: CTA head and neck 11/07/2023 TECHNIQUE: Axial CT images were acquired from the skull base to the vertex without contrast. Dose reduction techniques were achieved by using automated exposure control and/or adjustment of mAand/or kV according to patient size and/or use of iterative reconstruction technique. FINDINGS: The ventricles and sulci are within normal limits in size and configuration for age. There is no evidence for acute intracranial hemorrhage. There are no foci of abnormal parenchymal attenuation. There is no mass effect or midline shift. There are no abnormal extraaxial fluid collections. Elvis Barrow MD - 01/17/2024 EXAMINATION: CT HEAD WITHOUT [...] diabetic polyneuropathy, with long-term current use of insulin(HCC) Z79.4 Type 2 diabetes mellitus with diabetic polyneuropathy, with long-term current use of insulin (HCC) COMPARISON: CTA head and neck 11/07/2023 TECHNIQUE: Axial CT images were acquired from the skull base to the vertex without contrast. Dose reduction techniques were achieved by using automated exposure control and/or adjustment of mAand/or kV according to patient size and/or use [...] intracranial process. Workstation ID: [id number] [facility] ([facility]ative)[facility]HealthCT Head WO contrast Ordered By: Elvis Mae on 25-33-4168QileEfwfsq Work Phone: Glucose (Bld) [Mass/Vol]on 21-30-3300Xvnikhd [Mass/Vol]87 mg/dL65 - 99 mg/dLOhioHealthInterpretation and review of laboratory resultsNormalOhioHealthOhioHealthGlucose [Mass/Vol]255 mg/bXFtkq79 - 99 mg/dL OhioHealthInterpretation and review of laboratory resultsAbnormalOhioHealth OhioHealthGlucose [Mass/Vol]93 mg/dL65 - 99 mg/dLOhioHealthInterpretation and review of laboratory resultsNormalOhioHealthOhioHealthGlucose [Mass/Vol]58 mg/dL Low65 - 99 mg/dLOhioHealthInterpretation and review of laboratory results AbnormalOhioHealthOhioHealthGlucose [Mass/Vol]86 mg/dL65 - 99 mg/dLOhioHealth Interpretation and review of laboratory resultsNormalOhioHealthKyioHealthPOC GLUCOSE - RALSon 28-22-0229Tdekshs [Mass/Vol]87 mg/uFPjvwkn80-67Hkhjvv General HospitalComment on above:Performed By: #### [id number] ####[facility] [address] [address] Abbi Choudhary M.D. [id number] [Mass/Vol]255 mg/dL Gtiw64-46Rbtkgl [facility] HospitalComment on above:Performed By: #### [id number] ####[facility] [address] [place], [place] [address] Abbi Choudhary M.D. 36D0 681515Ltxelmg [Mass/Vol]93 mg/mSHjmros28-09Xhmdvf [facility] HospitalComment on above:Performed By: #### [id number] ####[facility] [address] [address] Abbi Choudhary M.D. [id number] [Mass/Vol]58 mg/oUAvx76-20Xuxuda General HospitalComment on above:Performed By: #### [id number] ####[facility] [address] [place], [place] [address] Abbi Choudhary M.D. [id number] [Mass/Vol]86 mg/yRVwkdzr39-48TdobvxColumbus Regional HealthComment on above:Performed By: #### [id number] ####[facility] [address] [place], [place] [address] Abbi Choudhary M.D. 36D0 [id number] FUNCTION PANELon 74-57-1673Twwmniq [Mass/Vol]3.2 g/dLNormal3.2-5.2 [facility] Bee[facility] GroveComment on above:Order Comment: [facility] has implemented the eGFR calculation approach that does not have a coefficient for race that conforms to the NKF-ASN Task Force Recommendations. Performed By: #### [id number] ####[facility] [address] [address] Abbi Choudhary M.D. [id number] gap [Moles/Vol]12 mmol/ITrxlyo44-85VeopbsSelect Specialty Hospital - Beech GroveComascension standish hospital on above:Order Comment: [facility] has implemented the eGFR calculation approach that does not have a coefficient for race that conforms to the NKF-ASN Task Force Recommendations.Performed By: #### [id number] ####[facility] [address] [address] Abbi Choudhary M.D. [id number] [Mass/Vol]8.6 mg/dLNormal8.4-10.2MColumbus Regional Health Comment on above:Order Comment: [facility] has implemented the eGFR calculation approach that does not have a coefficient for race that conforms to the NKF-ASN Task Force Recommendations.Performed By: #### [id number] ####[facility] [address] [place], [place] [address] Abbi Choudhary M.D. 36D0 008801Qspkcjpm [Moles/Vol]113 mmol/NYszd61-060VneyskMargaret Mary Community Hospital on above:Order Comment: [facility] has implemented the eGFR calculation approach that does not have a coefficient for race that conforms to the NKF-ASN Task Force Recommendations.Performed By: #### [id number] ####[facility] [address] [address] Abbi Choudhary M.D. [id number] [Mass/Vol]1.69 mg/dLHigh0.40-1.10[facility] Bee[facility] GroveComment on above:Order Comment: [facility] has implemented the eGFR calculation approach that does not have a coefficient for race that conforms to the NKF-ASN Task Force Recommendations.Performed By: #### [id number] ####[facility] [address] [address] Abbi Choudhary M.D. [id number] mL/min/1.73 m2Low >=60[facility] Beech GroveComment on above:Order Comment: [facility] has implemented the eGFR calculation approach that does not have a coefficient for race that conforms to the NKF-ASN Task Force Recommendations. Result Comment: Estimated GFR was calculated using the 2020 CKD-EPI creatinine equation.Performed By: #### [id number] ####[facility] [address] [place] [address] Abbi Choudhary M.D. [id number] [Mass/Vol]127 mg/oBTnba30-49XenuolColumbus Regional HealthComascension standish hospital on above:Order Comment: [facility] has implemented the eGFR calculation approach that does not have a coefficient for race that conforms to the NKF-ASN Task Force Recommendations.Performed By: #### [id number] ####[facility] [address] [address] Abbi Choudhary M.D. [id number] (Bld) [Moles/Vol]23 mmol/BGktlnz38-36UszlseSelect Specialty Hospital - Beech Grove Comment on above:Order Comment: [facility] has implemented the eGFR calculation approach that does not have a coefficient for race that conforms to the NKF-ASN Task Force Recommendations.Performed By: #### [id number] ####[facility] [address] [place], [place] [address] Abbi Choudhary M.D. 36D0 [id number] [Mass/Vol]3.7 mg/dLNormal2.7-4.5[facility] GroveComascension standish hospital on above:Order Comment: [facility] has implemented the eGFR calculation approach that does not have a coefficient for race that conforms to the NKF-ASN Task Force Recommendations.Performed By: #### [id number] ####[facility] [address] [address] Abbi Choudhary M.D. [id number] [Moles/Vol]4.8 mmol/LNormal3.5-5.1MRiley Hospital for Children on above:Order Comment: [facility] has implemented the eGFR calculation approach that does not have a coefficient for race that conforms to the NKF-ASN Task Force Recommendations.Result Comment: Slightly HemolyzedPerformed By: #### [id number] ####[facility] [address] [address] Abbi Choudhary M.D. [id number] [Moles/Vol]143 mmol/HJzmiwx567-085AotwapSelect Specialty Hospital - [facility] Grove Comment on above:Order Comment: [facility] has implemented the eGFR calculation approach that does not have a coefficient for race that conforms to the NKF-ASN Task Force Recommendations.Performed By: #### [id number] ####[facility] [address] [address] Abbi Choudhary M.D. 36D0 495447Kcxa nitrogen [Mass/Vol]30 mg/dLHigh8-25[facility] on above:Order Comment: [facility] has implemented the eGFR calculation approach that does not have a coefficient for race that conforms to the NKF-ASN Task Force Recommendations.Performed By: #### [id number] ####[facility] [address] [place], [place] [address] Abbi Chouhdary M.D. [id number] nitrogen/Creatinine [Mass ratio]17.8 mg/omIhvnxc48.0-20.0[facility] Comment on above:Order Comment: [facility] has implemented the eGFR calculation approach that does not have a coefficient for race that conforms to the NKF-ASN Task Force Recommendations.Performed By: #### [id number] ####[facility] [address] [place], [place] [address] Abbi Choudhary M.D. 36D0 444862Zpxwj function 1999 panelOrdered By: Janelle Juarez on 43-24-1490Ouootjt [Mass/Vol]3.2 g/dL3.2 - 5.2 g/dLOhioHealthAnion gap [Moles/Vol]12 mmol/L10 - 20 mmol/LOhioHealthCalcium [Mass/Vol]8.6 mg/dL8.4 - 10.2 mg/dLOhioHealthChloride [Moles/Vol]113 mmol/LHigh98 - 108 mmol/LOhioHealthCreatinine [Mass/Vol]1.69 mg/dLHigh0.40 - 1.10 mg/dLOhioHealthGFR/1.73 sq M.predicted CKD-EPI (S/P/Bld) [Vol rate/Area]38Low- PINFOhioHealthComment on above:Estimated GFR was calculated using the 2020 CKD-EPI creatinine equation.Glucose [Mass/Vol]127 mg/fWOebd90 - 99 mg/dLOhioHealthHCO3 [Moles/Vol]23 mmol/L21 - 32 mmol/L LouisianaHealthInterpretation and review of laboratory resultsAbnormalOhioHealth Phosphate [Mass/Vol]3.7 mg/dL2.7 - 4.5 mg/dLOhioHealthPotassium [Moles/Vol]4.8 mmol/L3.5 - 5.1 mmol/LOhioHealthComment on above:Slightly HemolyzedSodium [Moles/Vol]143 mmol/L135 - 145 mmol/LOhioHealthUrea nitrogen [Mass/Vol]30 mg/dL High8 - 25 mg/dLOhioHealthUrea nitrogen/Creatinine [Mass ratio]17.8 mg/mg10.0 - 20.0[facility]ioMer[facility] has implemented the eGFR calculation approach that does not have a coefficient for race that conforms to the NKF-ASN Task Force Recommendations.LouisianaHealthOhioHealthCBCon 54-31-1743KXKH NRBC0.0 %NormalSelect Specialty Hospital - Beech GroveComment on above:Performed By: #### [id number] ####[facility] [address] [address] Abbi Choudhary M.D. 36D0 [id number] NRBC ABS COUNT0.00 K/mcLNormal0.00-0.00[facility] Beech GroveComment on above:Performed By: #### [id number] #### LAB [address] [address] Abbi Choudhary M.D. [id number] distribution width (RBC) [Ratio] 13.1 %Dyvytb86.6-14.8[facility] Beech GroveComment on above:Performed By: #### [id number] ####[facility] [address] [address] Abbi Choudhary M.D. [id number] (Bld) [Volume fraction]30.1 %Low36.0-46.0[facility] Beech GroveComment on above:Performed By: #### [id number] ####[facility] [address] [address] Abbi Choudhary M.D. [id number] (Bld) [Mass/Vol]9.4 g/dLLow12.0-16.0[facility] GroveComment on above:Performed By: #### [id number] #### LAB [address] [address] Abbi Choudhary M.D. [id number] (RBC) [Entitic mass]30.1 afGepsqj71.0-34.0[facility] Comment on above:Performed By: #### [id number] ####[facility] [address] [address] Abbi Choudhary M.D. [id number] (RBC) [Entitic vol]96.5 fLNormal 80.0-100.0[facility] Bee[facility] GroveComment on above:Performed By: #### [id number] ####[facility] [address] [address] Abbi Choudhary M.D. 36D0 [id number] CORPUSCULAR HEMOGLOBIN CONC31.2 g/gDEihxgf95.0-37.0[facility] GroveComment on above:Performed By: #### [id number] ####[facility] [address] [address] Abbi Choudhary M.D. [id number] mean volume (Bld) [Entitic vol]9.1 fLLow9.4-12.4[facility] Bee[facility] GroveComment on above:Performed By: #### [id number] ####[facility] [address] [address] Abbi Choudhary M.D. [id number] (Bld) [#/Vol]285 10*3/pHTeufny190-013FtwptlSelect Specialty Hospital - Beech GroveComment on above:Performed By: #### [id number] ####[facility] [address] [address] Abbi Choudhary M.D. [id number] (Bld) [#/Vol]3.12 10*6/uL Low4.00-5.20[facility] GroveComment on above:Performed By: #### [id number] ####[facility] [address] [address] Abib Choudhary M.D. 36D0 [id number] (Bld) [#/Vol]8.82 10*3/uLNormal4.50-11.00[facility] Comment on above:Performed By: #### [id number] ####[facility] [address] [address] Abbi Choudhary M.D. [id number] panel Auto (Bld)on 01-16-2024 Erythrocyte distribution width (RBC) [Entitic vol]13.1 %11.6 - 14.8 %[facility] Hematocrit (Bld) [Volume fraction]30.1 %Low36.0 - 46.0 %OhioMercy Health St. Rita'S Medical CenterHemoglobin (Bld) [Mass/Vol]9.4 g/dLLow12.0 - 16.0 g/dLOhioHealthInterpretation and review of laboratory resultsAbnormalOhioHealthMCH (RBC) [Entitic mass]30.1 pg26.0 - 34.0 pgOhioHealthMCHC (RBC) [Mass/Vol]31.2 g/dL31.0 - 37.0 g/dLOhioHealthMCV (RBC) [Entitic vol]96.5 fL80.0 - 100.0 fLOhioHealthNucleated RBC (Bld) [#/Vol] 0.00 10*3/uLOhioHealthNucleated RBC/100 WBC (Bld) [Ratio]0.0 %OhioHealthPlatelet mean volume (Bld) [Entitic vol]9.1 fLLow9.4 - 12.4 fLOhioHealthPlatelets (Bld) [#/Vol]285 10*3/uLOhioHealthRBC (Bld) [#/Vol]3.12 10*6/uLLowOhioHealthWBC (Bld) [#/Vol]8.82 10*3/uLOhioHealthOhioHealthCONSULTon 18-24-8378WGBFQKLIhvztuDetexs General HospitalGlucose (Bld) [Mass/Vol]on 31-17-8095Trtomzl [Mass/Vol]211 mg/dL High65 - 99 mg/dLOhioHealthInterpretation and review of laboratory results AbnormalOhioHealthOhioHealthGlucose [Mass/Vol]106 mg/uRKpno47 - 99 mg/dL OhioHealthInterpretation and review of laboratory resultsAbnormalOhioHealth OhioHealthGlucose [Mass/Vol]222 mg/hGYdrk93 - 99 mg/dLOhioHealthInterpretation and review of laboratory resultsAbnormalOhioHealNorwalk Memorial HospitalioHealthGlucose [Mass/Vol]69 mg/dL65 - 99 mg/dLOhioHealthInterpretation and review of laboratory results NormalOhioHealthOhioHealthPOC GLUCOSE - [facility] INSTITUTESon 00-93-3708Rcobljw [Mass/Vol]211 mg/bGUvwm63-85Ubxdol [facility] HospitalComment on above:Performed By: #### [id number] ####[facility] [address] [place], [place] [address] Abbi Choudhary M.D. 36D0 [id number] [Mass/Vol]106 mg/eIVwdb21-55Uqppmj [facility] HospitalComment on above:Performed By: #### [id number] ####[facility] [address] [place], [place] [address] Abbi Choudhary M.D. [id number] [Mass/Vol]222 mg/tLUfgr09-33Lwuiou [facility] HospitalComment on above:Performed By: #### [id number] ####[facility] [address] [place], [place] [address] Abbi Choudhary M.D. [id number] [Mass/Vol]69 mg/hOSnavxs95-84OslrrpRiley Hospital for Children on above:Performed By: #### 68075 ####[facility] [address] [place], [place] [address] Abbi Choudhary M.D. [id number] FUNCTION PANELon 24-03-8062Begaeuz [Mass/Vol]3.3 g/dL Normal3.2-5.2MRiley Hospital for Children on above:Order Comment: [facility] has implemented the eGFR calculation approach that does not have a coefficient for race that conforms to the NKF-ASN Task Force Recommendations.Performed By: #### 73853 ####[facility] [address] [address] Abbi Choudhary M.D. [id number] gap [Moles/Vol]12 mmol/LNormal 10-20[facility] on above:Order Comment: [facility] has implemented the eGFR calculation approach that does not have a coefficient for race that conforms to the NKF-ASN Task Force Recommendations.Performed By: #### 49745 ####[facility] [address] [address] Abbi Choudhary M.D. [id number] [Mass/Vol]8.8 mg/dLNormal 8.4-10.2MRiley Hospital for Children on above:Order Comment: [facility] has implemented the eGFR calculation approach that does not have a coefficient for race that conforms to the NKF-ASN Task Force Recommendations.Performed By: #### [id number] ####[facility] [address] [place], [place] [address] Abbi Choudhary M.D. [id number] [Moles/Vol]111 mmol/LHigh 98-108[facility] on above:Order Comment: [facility] has implemented the eGFR calculation approach that does not have a coefficient for race that conforms to the NKF-ASN Task Force Recommendations.Performed By: #### [id number] ####[facility] [address] [place], [place] [address] Abbi Choudhary M.D. [id number] [Mass/Vol]1.63 mg/dLHigh 0.40-1.10[facility] on above:Order Comment: [facility] has implemented the eGFR calculation approach that does not have a coefficient for race that conforms to the NKF-ASN Task Force Recommendations.Performed By: #### [id number] ####[facility] [address] [address] Abbi Choudhary M.D. [id number] mL/min/1.73 m2Low>=60[facility] on above:Order Comment: [facility] has implemented the eGFR calculation approach that does not have a coefficient for race that conforms to the NKF-ASN Task Force Recommendations.Result Comment: Estimated GFR was calculated using the 2020 CKD-EPI creatinine equation. Performed By: #### [id number] ####[facility] [address] [address] Abbi Choudhary M.D. [id number] [Mass/Vol]103 mg/mEJblf06-51SvgwznRiley Hospital for Children on above:Order Comment: [facility] has implemented the eGFR calculation approach that does not have a coefficient for race that conforms to the NKF-ASN Task Force Recommendations.Performed By: #### [id number] ####[facility] [address] [address] Abbi Choudhary M.D. [id number] (Bld) [Moles/Vol]25 mmol/WMrwigt74-57HhnkxiSelect Specialty Hospital [facility] Comment on above:Order Comment: [facility] has implemented the eGFR calculation approach that does not have a coefficient for race that conforms to the NKF-ASN Task Force Recommendations.Performed By: #### [id number] ####[facility] [address] [place], [place] [address] Abbi Choudhary M.D. 36D0 [id number] [Mass/Vol]4.1 mg/dLNormal2.7-4.5[facility] on above:Order Comment: [facility] has implemented the eGFR calculation approach that does not have a coefficient for race that conforms to the NKF-ASN Task Force Recommendations.Performed By: #### [id number] ####[facility] [address] [address] Abbi Choudhary M.D. [id number] [Moles/Vol]4.5 mmol/LNormal3.5-5.1MRiley Hospital for Children on above:Order Comment: [facility] has implemented the eGFR calculation approach that does not have a coefficient for race that conforms to the NKF-ASN Task Force Recommendations.Performed By: #### [id number] ####[facility] [address] [place] [address] Abbi Choudhary M.D. [id number] [Moles/Vol]143 mmol/RLshyzw844-497KxscbxMargaret Mary Community Hospital on above:Order Comment: [facility] has implemented the eGFR calculation approach that does not have a coefficient for race that conforms to the NKF-ASN Task Force Recommendations.Performed By: #### [id number] ####[facility] [address] [place] [address] Abbi Choudhary M.D. [id number] nitrogen [Mass/Vol]27 mg/dLHigh8-25[facility] on above:Order Comment: [facility] has implemented the eGFR calculation approach that does not have a coefficient for race that conforms to the NKF-ASN Task Force Recommendations.Performed By: #### [id number] ####[facility] [address] [address] Abbi Choudhary M.D. [id number] nitrogen/Creatinine [Mass ratio]16.6 mg/xeKmhgay74.0-20.0[facility] on above:Order Comment: [facility] has implemented the eGFR calculation approach that does not have a coefficient for race that conforms to the NKF-ASN Task Force Recommendations.Performed By: #### [id number] ####[facility] [address] [place] [address] Abbi Choudhary M.D. [id number] function 2000 panel on 75-00-9581Ufkxiwp [Mass/Vol]3.3 g/dL3.2 - 5.2 g/dLOhioHealthAnion gap [Moles/Vol]12 mmol/L10 - 20 mmol/LOhioHealthCalcium [Mass/Vol]8.8 mg/dL8.4 - 10.2 mg/dLOhioHealthChloride [Moles/Vol]111 mmol/LHigh98 - 108 mmol/LOhioHealth Creatinine [Mass/Vol]1.63 mg/dLHigh0.40 - 1.10 mg/dLOhioHealthGFR/1.73 sq M.predicted CKD-EPI (S/P/Bld) [Vol rate/Area]39Low- PINFOhioHealthComment on above:Estimated GFR was calculated using the 2020 CKD-EPI creatinine equation. Glucose [Mass/Vol]103 mg/oCQgbg50 - 99 mg/dLOhioHealthHCO3 [Moles/Vol]25 mmol/L 21 - 32 mmol/LOhioHealthInterpretation and review of laboratory resultsAbnormal OhioHealthPhosphate [Mass/Vol]4.1 mg/dL2.7 - 4.5 mg/dLOhioHealthPotassium [Moles/Vol]4.5 mmol/L3.5 - 5.1 mmol/LOhioHealthSodium [Moles/Vol]143 mmol/L135 - 145 mmol/LOhioHealthUrea nitrogen [Mass/Vol]27 mg/dLHigh8 - 25 mg/dLOhioHealth Urea nitrogen/Creatinine [Mass ratio]16.6 mg/mg10.0 - 20.0OhioKettering Health Troyio[facility] has implemented the eGFR calculation approach that does not have a coefficient for race that conforms to the NKF-ASN Task Force Recommendations.LouisianaHealthOhioHealthURINALYSISon 50-39-6946NGSVVKKX, URINERare AbnormalNone [facility] HospitalComment on above:Order Comment: Microscopic examination is performed on all urinalysis samples and only positive findings are reported. The test for blood on the chemical analytic portion of urinalysis may also be positive due to hemoglobinuria and myoglobinuria and if red blood cells are present they are quantified by microscopic examination. Performed By: #### [id number] ####[facility] [address] [address] Abbi Choudhary M.D. [id number], URINENegativeNormalNegMadison State HospitalComment on above:Order Comment: Microscopic examination is performed on all urinalysis samples and only positive findings are reported. The test for blood on the chemical analytic portion of urinalysis may also be positive due to hemoglobinuria and myoglobinuria and if red blood cells are present they are quantified by microscopic examination.Performed By: #### [id number] ####[facility] [address] [address] Abbi Choudhary M.D. [id number], URINE NegativeNormalNegativeSelect Specialty Hospital - Beech GroveComment on above:Order Comment: Microscopic examination is performed on all urinalysis samples and only positive findings are reported. The test for blood on the chemical analytic portion of urinalysis may also be positive due to hemoglobinuria and myoglobinuria and if red blood cells are present they are quantified by microscopic examination. Performed By: #### [id number] ####[facility] [address] [address] Abbi Choudhary M.D. [id number] (U)ClearNormalCLutheran Hospital of Indiana Comment on above:Order Comment: Microscopic examination is performed on all urinalysis samples and only positive findings are reported. The test for blood on the chemical analytic portion of urinalysis may also be positive due to hemoglobinuria and myoglobinuria and if red blood cells are present they are quantified by microscopic examination.Performed By: #### [id number] ####[facility] [address] [address] Abbi Choudhary M.D. [id number] (U)Yellow NormalColorless, [facility] - IndianapolisComment on above:Order Comment: Microscopic examination is performed on all urinalysis samples and only positive findings are reported. The test for blood on the chemical analytic portion of urinalysis may also be positive due to hemoglobinuria and myoglobinuria and if red blood cells are present they are quantified by microscopic examination. Performed By: #### [id number] ####[facility] [address] [address] Abbi Choudhary M.D. [id number] Ql (U)50 mg/dLAbnormalNegKing's Daughters Hospital and [facility] on above:Order Comment: Microscopic examination is performed on all urinalysis samples and only positive findings are reported. The test for blood on the chemical analytic portion of urinalysis may also be positive due to hemoglobinuria and myoglobinuria and if red blood cells are present they are quantified by microscopic examination.Performed By: #### [id number] ####[facility] [address] [address] Abbi Choudhary M.D. [id number] casts LM Ql (Urine sed)1-5Uccetnyw2-4PsnoytRiley Hospital for Children on above:Order Comment: Microscopic examination is performed on all urinalysis samples and only positive findings are reported. The test for blood on the chemical analytic portion of urinalysis may also be positive due to hemoglobinuria and myoglobinuria and if red blood cells are present they are quantified by microscopic examination.Performed By: #### [id number] ####[facility] [address] [address] Abbi Choudhary M.D. [id number] Ql (U)NegativeNormal NegativeSelect Specialty Hospital - [facility] GroveCom[facility] on above:Order Comment: Microscopic examination is performed on all urinalysis samples and only positive findings are reported. The test for blood on the chemical analytic portion of urinalysis may also be positive due to hemoglobinuria and myoglobinuria and if red blood cells are present they are quantified by microscopic examination.Performed By: #### [id number] ####[facility] [address] [address] Abbi Choudhary M.D. [id number] esterase Test strip Ql (U)NegativeNormalNegativeSelect Specialty Hospital - Beech GroveComascension stand[facility] hospital on above:Order Comment: Microscopic examination is performed on all urinalysis samples and only positive findings are reported. The test for blood on the chemical analytic portion of urinalysis may also be pos itive due to hemoglobinuria and myoglobinuria and if red blood cells are present they are quantified by microscopic examination.Performed By: #### [id number] ####[facility] [address] [place], [place] [address] Abbi Choudhary M.D. [id number], URINERareNormalNone Seen, RareMargaret Mary Community Hospital on above:Order Comment: Microscopic examination is performed on all urinalysis samples and only positive findings are reported. The test for blood on the chemical analytic portion of urinalysis may also be positive due to hemoglobinuria and myoglobinuria and if red blood cells are present they are quantified by microscopic examination.Performed By: #### [id number] ####[facility] [address] [address] Abbi Choudhary M.D. [id number], URINENegativeNormal NegativeMargaret Mary Community Hospital on above:Order Comment: Microscopic examination is performed on all urinalysis samples and only positive findings are reported. The test for blood on the chemical analytic portion of urinalysis may also be positive due to hemoglobinuria and myoglobinuria and if red blood cells are present they are quantified by microscopic examination.Performed By: #### [id number] ####[facility] [address] [place], [place] [address] Abbi Choudhayr M.D. [id number] (U)5.0 [pH]Normal5.0-7.0[facility] on above:Order Comment: Microscopic examination is performed on all urinalysis samples and only positive findings are reported. The test for blood on the chemical analytic portion of urinalysis may also be positive due to hemoglobinuria and myoglobinuria and if red blood cells are present they are quantified by microscopic examination.Performed By: #### [id number] ####[facility] [address] [place], [place] [address] Abbi Choudhary M.D. [id number] (U) [Mass/Vol]100 mg/dLAbnormalNegKing's Daughters Hospital and Health Services on above:Order Comment: Microscopic examination is performed on all urinalysis samples and only positive findings are reported. The test for blood on the chemical analytic portion of urinalysis may also be positive due to hemoglobinuria and myoglobinuria and if red blood cells are present they are quantified by microscopic examination.Performed By: #### [id number] #### LAB [address] [address] Abbi Choudhary M.D. [id number] LM.HPF (Urine sed) [#/Area]2 /[HPF]Normal0-3MRiley Hospital for Children on above:Order Comment: Microscopic examination is performed on all urinalysis samples and only positive findings are reported. The test for blood on the chemical analytic portion of urinalysis may also be positive due to hemoglobinuria and myoglobinuria and if red blood cells are present they are quantified by microscopic examination. Performed By: #### [id number] ####[facility] [address] [address] Abbi Choudhary M.D. [id number] gravity (U) [Rel density]1.013Normal 1.005-1.025[facility] on above:Order Comment: Microscopic examination is performed on all urinalysis samples and only positive findings are reported. The test for blood on the chemical analytic portion of urinalysis may also be positive due to hemoglobinuria and myoglobinuria and if red blood cells are present they are quantified by microscopic examination.Performed By: #### [id number] ####[facility] [address] [address] Abbi Choudhary M.D. [id number] EPITHELIAL2 /hpfNormal0-4[facility] on above:Order Comment: Microscopic examination is performed on all urinalysis samples and only positive findings are reported. The test for blood on the chemical analytic portion of urinalysis may also be positive due to hemoglobinuria and myoglobinuria and if red blood cells are present they are quantified by microscopic examination.Performed By: #### [id number] ####[facility] [address] [address] Abbi Choudhary M.D. [id number], URINE<2.0Normal<2.0[facility] on above:Order Comment: Microscopic examination is performed on all urinalysis samples and only positive findings are reported. The test for blood on the chemical analytic portion of urinalysis may also be positive due to hemoglobinuria and myoglobinuria and if red blood cells are present they are quantified by microscopic examination. Performed By: #### [id number] ####[facility] [address] [place], [place] [address] Abbi Choudhary M.D. [id number] LM.HPF (Urine sed) [#/Area]1 /[HPF]Normal0-5[facility]Com[facility] on above:Order Comment: Microscopic examination is performed on all urinalysis samples and only positive findings are reported. The test for blood on the chemical analytic portion of urinalysis may also be pos itive due to hemoglobinuria and myoglobinuria and if red blood cells are present they are quantified by microscopic examination.Performed By: #### [id number] #### LAB [address] [place], [place] [address] Abbi Choudhary M.D. [id number] Kidney - bilateral and Urinary bladderon 21-56-7606Tozwbwfuz Study observation (narrative)[facility] RENAL AND BLADDERon [id number] RENAL AND BLADDERNormal [facility] GroveCom[facility] on above:Order Comment: Injury/Trauma or Illness?:Illness/OtherHow long have you had these symptoms (acute/ch ronic)?:AcuteReason for exam?:akiHistory of cancer?:uSurgeries, chemotherapy, or radiation?:pacemakerType of Exam?:InitialAdditional signs and symptoms?:none UrinalysisOrdered By: Caryn Schmitt on 02-90-1125Ecrvyupp Auto Ql (U) RareAbnormalNone Seen /hpfOhioHealthBilirubin Ql (U)NegativeNegativeOhioHealth Clarity Refractometry automated (U)ClearClearOhioHealthColor (U)YellowColorless, YellowOhioHealthEpithelial cells.squamous Auto (Urine sed) [#/Area]2[facility] Glucose Auto test strip (U) [Mass/Vol]50 mg/dLAbnormalNegativeOhioHealth Hemoglobin Auto test strip Ql (U)NegativeNegativeOhioHealthHyaline casts Auto (Urine sed) [#/Area]3-5AbnormalOhioHealthInterpretation and review of laboratory resultsAbnormalOhioHealthKetones (U) [Mass/Vol]NegativeNegative mg/dLOhioHealth Leukocyte esterase Auto test strip Ql (U)NegativeNegativeOhioHealthMucus Auto (Urine sed) [#/Area]RareNone Seen, Rare /lpfOhioHealthNitrite Auto test strip Ql (U)NegativeNegativeOhioHealthpH (U)5.0 [pH]5.0 - 7.0OhioHealthProtein (U) [Mass/Vol]100 mg/dLAbnormalNegativeOhioHealthRBC Auto (Urine sed) [#/Area]2 OhioHealthSpecific gravity (U) [Rel density]1.0131.005 - 1.025[facility] Urobilinogen (U) [Mass/Vol]mg/dLNINF - 2.0 mg/dLOhioHealthWBC Auto (Urine sed) [#/Area]1OhioHealthMicroscopic examination is performed on all urinalysis samples and only positive findings are reported. The test for blood on the chemical analytic portion of urinalysis may also be positive due to he moglobinuria and myoglobinuria and if red blood cells are present they are quantified by microscopic examination.[facility] Medical CenterioHealthCBCon 65-24-6054CYBW NRBC0.0 %NormalSelect Specialty Hospital - Beech GroveComment on above:Performed By: #### [id number] ####[facility] [address] [address] Abbi Choudhary M.D. 36D0 [id number] NRBC ABS COUNT0.00 K/mcLNormal0.00-0.00[facility] Bee[facility] GroveComment on above:Performed By: #### [id number] ####[facility] [address] [address] Abbi Choudhary M.D. [id number] distribution width (RBC) [Ratio] 13.1 %Redaop57.6-14.8[facility] Pointment on above:Performed By: #### [id number] ####[facility] [address] [place], [place] [address] Abbi Choudhary M.D. [id number] (Bld) [Volume fraction]31.2 %Low36.0-46.0[facility] HospitalComment on above:Performed By: #### [id number] ####[facility] [address] [address] Abbi Choudhary M.D. [id number] (Bld) [Mass/Vol]9.9 g/dLLow12.0-16.0[facility] HospitalComment on above:Performed By: #### [id number] ####[facility] [address] [address] Abbi Choudhary M.D. [id number] (RBC) [Entitic mass]30.6 emDvytli19.0-34.0[facility] Comment on above:Performed By: #### [id number] ####[facility] [address] [address] Abbi Choudhary M.D. [id number] (RBC) [Entitic vol]96.3 fLNormal 80.0-100.0[facility] Bee[facility] GroveComment on above:Performed By: #### [id number] ####[facility] [address] [address] Abbi Choudhary M.D. 36D0 [id number] CORPUSCULAR HEMOGLOBIN CONC31.7 g/hGDkfpdj07.0-37.0[facility] Bee[facility] GroveComment on above:Performed By: #### [id number] ####[facility] [address] [address] Abbi Choudhary M.D. [id number] mean volume (Bld) [Entitic vol]9.3 fLLow9.4-12.4[facility] Bee[facility] GroveComment on above:Performed By: #### [id number] ####[facility] [address] [address] Abbi Choudhary M.D. [id number] (Bld) [#/Vol]266 10*3/jMQzfhxk077-510DjwxtrSelect Specialty Hospital - Beech GroveComment on above:Performed By: #### [id number] ####[facility] [address] [address] Abbi Choudhary M.D. [id number] (Bld) [#/Vol]3.24 10*6/uL Low4.00-5.20[facility] Beech GroveComment on above:Performed By: #### [id number] ####[facility] [address] [place], [place] [address] Abbi Choudhary M.D. 36D0 [id number] (Bld) [#/Vol]7.12 10*3/uLNormal4.50-11.00[facility] Comment on above:Performed By: #### [id number] ####[facility] [address] [place], [place] [address] Abbi Choudhary M.D. [id number] panel Auto (Bld)on 01-15-2024 Erythrocyte distribution width (RBC) [Entitic vol]13.1 %11.6 - 14.8 %[facility] Hematocrit (Bld) [Volume fraction]31.2 %Low36.0 - 46.0 %OhioHealthHemoglobin (Bld) [Mass/Vol]9.9 g/dLLow12.0 - 16.0 g/dLOhioHealthInterpretation and review of laboratory resultsAbnormalOhioHealthMCH (RBC) [Entitic mass]30.6 pg26.0 - 34.0 pgOhioHealthMCHC (RBC) [Mass/Vol]31.7 g/dL31.0 - 37.0 g/dLOhioHealthMCV (RBC) [Entitic vol]96.3 fL80.0 - 100.0 fLOhioHealthNucleated RBC (Bld) [#/Vol] 0.00 10*3/uLOhioHealthNucleated RBC/100 WBC (Bld) [Ratio]0.0 %OhioHealthPlatelet mean volume (Bld) [Entitic vol]9.3 fLLow9.4 - 12.4 fLOhioHealthPlatelets (Bld) [#/Vol]266 10*3/uLOhioHealthRBC (Bld) [#/Vol]3.24 10*6/uLLowOhioHealthWBC (Bld) [#/Vol]7.12 10*3/uLOhioHealthOhioHealthGlucose (Bld) [Mass/Vol]on 01-15-2024 Glucose [Mass/Vol]233 mg/rFQbvh33 - 99 mg/dLOhioHealthInterpretation and review of laboratory resultsAbnormLancaster Municipal HospitalHealthGlucose [Mass/Vol]103 mg/dLHigh 65 - 99 mg/dLOhioHealthInterpretation and review of laboratory resultsAbnormal [facility] CenterioHealthGlucose [Mass/Vol]89 mg/dL65 - 99 mg/dLOhioHealth Interpretation and review of laboratory resultsNormalOSalem City HospitalioHealthGlucose [Mass/Vol]104 mg/fTIgrs48 - 99 mg/dLOhioHealthInterpretation and review of laboratory resultsAbnoAultman Alliance Community Hospital GLUCOSE [facility] 01-15-2024 Glucose [Mass/Vol]233 mg/jRMdqq23-32Jzzkud [facility] HospitalComment on above: Performed By: #### [id number] ####[facility] [address] [address] Abbi Choudhary M.D. [id number] [Mass/Vol]103 mg/uQKyfq58-95Icsdfz [facility] HospitalComment on above:Performed By: #### [id number] ####[facility] [address] [place], [place] [address] Abbi Choudhary M.D. [id number] [Mass/Vol]89 mg/dL Yxmkme06-71Qddgey [facility] HospitalComment on above:Performed By: #### [id number] #### LAB [address] [place], [place] [address] Abbi Choudhary M.D. 36D0 [id number] [Mass/Vol]104 mg/vWIvqk38-47Gprpvt [facility] HospitalComment on above:Performed By: #### [id number] #### LAB [address] [place], [place] [address] Abbi Choudhary M.D. [id number] FUNCTION PANELon 37-28-9758Axigtqg [Mass/Vol]3.4 g/dLNormal3.2-5.2[facility] HospitalComment on above:Order Comment: [facility] has implemented the eGFR calculation approach that does not have a coefficient for race that conforms to the NKF-ASN Task Force Recommendations.Performed By: #### [id number] ####[facility] [address] [place], [place] [address] Abbi Choudhary M.D. [id number] gap [Moles/Vol]13 mmol/MDibtjr28-77VuwnyuMargaret Mary Community Hospital on above:Order Comment: [facility] has implemented the eGFR calculation approach that does not have a coefficient for race that conforms to the NKF-ASN Task Force Recommendations.Performed By: #### [id number] ####[facility] [address] [address] Abbi Choudhary M.D. [id number] [Mass/Vol]8.7 mg/dL Normal8.4-10.2MRiley Hospital for Children on above:Order Comment: [facility] has implemented the eGFR calculation approach that does not have a coefficient for race that conforms to the NKF-ASN Task Force Recommendations.Performed By: #### [id number] ####[facility] [address] [place], [place] [address] Abbi Choudhary M.D. [id number] [Moles/Vol]109 mmol/LHigh 98-108[facility] on above:Order Comment: [facility] has implemented the eGFR calculation approach that does not have a coefficient for race that conforms to the NKF-ASN Task Force Recommendations.Performed By: #### [id number] ####[facility] [address] [address] Abbi Choudhary M.D. [id number] [Mass/Vol]1.59 mg/dLHigh 0.40-1.10[facility] on above:Order Comment: [facility] has implemented the eGFR calculation approach that does not have a coefficient for race that conforms to the NKF-ASN Task Force Recommendations.Performed By: #### [id number] ####[facility] [address] [place], [place] [address] Abbi Choudhary M.D. [id number] mL/min/1.73 m2Low>=60[facility] on above:Order Comment: [facility] has implemented the eGFR calculation approach that does not have a coefficient for race that conforms to the NKF-ASN Task Force Recommendations.Result Comment: Estimated GFR was calculated using the 2020 CKD-EPI creatinine equation. Performed By: #### [id number] ####[facility] [address] [address] Abbi Choudhary M.D. [id number] [Mass/Vol]102 mg/kLYxgw09-00JgtyqjRiley Hospital for Children on above:Order Comment: [facility] has implemented the eGFR calculation approach that does not have a coefficient for race that conforms to the NKF-ASN Task Force Recommendations.Performed By: #### [id number] ####[facility] [address] [address] Abbi Choudhary M.D. [id number] (Bld) [Moles/Vol]25 mmol/PTyzzvr08-41ZtkpkwSelect Specialty Hospital - [facility] Comment on above:Order Comment: [facility] has implemented the eGFR calculation approach that does not have a coefficient for race that conforms to the NKF-ASN Task Force Recommendations.Performed By: #### [id number] ####[facility] [address] [address] Abbi Choudhary M.D. 36D0 161351Nuwtzjuzh [Mass/Vol]4.8 mg/dLHigh2.7-4.5[facility] on above:Order Comment: [facility] has implemented the eGFR calculation approach that does not have a coefficient for race that conforms to the NKF-ASN Task Force Recommendations.Performed By: #### [id number] ####[facility] [address] [address] Abbi Choudhary M.D. [id number] [Moles/Vol]4.2 mmol/LNormal3.5-5.1MRiley Hospital for Children on above:Order Comment: [facility] has implemented the eGFR calculation approach that does not have a coefficient for race that conforms to the NKF-ASN Task Force Recommendations.Performed By: #### [id number] ####[facility] [address] [place], [place] [address] Abbi Choudhary M.D. [id number] [Moles/Vol]143 mmol/YBpbxww603-840CwyuxrMargaret Mary Community Hospital on above:Order Comment: [facility] has implemented the eGFR calculation approach that does not have a coefficient for race that conforms to the NKF-ASN Task Force Recommendations.Performed By: #### [id number] ####[facility] [address] [place], [place] [address] Abbi Choudhary M.D. [id number] nitrogen [Mass/Vol]27 mg/dLHigh8-25[facility] on above:Order Comment: [facility] has implemented the eGFR calculation approach that does not have a coefficient for race that conforms to the NKF-ASN Task Force Recommendations.Performed By: #### [id number] ####[address] [address] Abbi Choudhary M.D. [id number] nitrogen/Creatinine [Mass ratio]17.0 mg/kgDhgisd00.0-20.0[facility] on above:Order Comment: [facility] has implemented the eGFR calculation approach that does not have a coefficient for race that conforms to the NKF-ASN Task Force Recommendations.Performed By: #### [id number] ####[facility] [address] [place] [address] Abbi Choudhary M.D. [id number] function 2000 panel on 41-63-8275Rpemubj [Mass/Vol]3.4 g/dL3.2 - 5.2 g/dLOhioHealthAnion gap [Moles/Vol]13 mmol/L10 - 20 mmol/LOhioHealthCalcium [Mass/Vol]8.7 mg/dL8.4 - 10.2 mg/dLOhioHealthChloride [Moles/Vol]109 mmol/LHigh98 - 108 mmol/LOhioHealth Creatinine [Mass/Vol]1.59 mg/dLHigh0.40 - 1.10 mg/dLOhioHealthGFR/1.73 sq M.predicted CKD-EPI (S/P/Bld) [Vol rate/Area]40Low- PINFOhioHealthComment on above:Estimated GFR was calculated using the 2020 CKD-EPI creatinine equation. Glucose [Mass/Vol]102 mg/wZWxwo46 - 99 mg/dLOhioHealthHCO3 [Moles/Vol]25 mmol/L 21 - 32 mmol/LOhioHealthInterpretation and review of laboratory resultsAbnormal OhioHealthPhosphate [Mass/Vol]4.8 mg/dLHigh2.7 - 4.5 mg/dLOhioHealthPotassium [Moles/Vol]4.2 mmol/L3.5 - 5.1 mmol/LOhioHealthSodium [Moles/Vol]143 mmol/L135 - 145 mmol/LOhioHealthUrea nitrogen [Mass/Vol]27 mg/dLHigh8 - 25 mg/dLOhioHealth Urea nitrogen/Creatinine [Mass ratio]17.0 mg/mg10.0 - 20.0[facility] has implemented the eGFR calculation approach that does not have a coefficient for race that conforms to the NKF-ASN Task Force Recommendations.[facility]red Hospital DaytonCBCon 22-01-4740UBXD NRBC0.0 %NormalSelect Specialty Hospital - Beech GroveComment on above:Performed By: #### [id number] ####[facility] [address] [place], [place] [address] Abbi Choudhary M.D. [id number] NRBC ABS COUNT0.00 K/mcLNormal0.00-0.00[facility] Bee[facility] GroveComment on above:Performed By: #### [id number] ####[facility] [address] [place], [place] [address] Abbi Choudhary M.D. [id number] distribution width (RBC) [Ratio]13.2 %Itgyye70.6-14.8 [facility] Bee[facility] GroveComment on above:Performed By: #### [id number] ####[facility] [address] [place], [place] [address] Abbi Choudhary M.D. [id number] (Bld) [Volume fraction]29.6 %Low36.0-46.0[facility] Bee[facility] GroveComment on above:Performed By: #### 60557 ####[facility] [address] [address] Abbi Choudhary M.D. [id number] (Bld) [Mass/Vol]9.7 g/dLLow12.0-16.0 [facility] GroveComment on above:Performed By: #### 07669 ####[facility] [address] [address] Abbi Choudhary M.D. [id number] (RBC) [Entitic mass]30.8 zlJwzjdj79.0-34.0[facility] GroveComment on above: Performed By: #### [id number] ####[facility] [address] [address] Abbi Choudhary M.D. [id number] (RBC) [Entitic vol]94.0 lFVtyewn01.0-100.0[facility] GroveComment on above:Performed By: #### [id number] ####[facility] [address] [address] Abbi Choudhary M.D. [id number] CORPUSCULAR HEMOGLOBIN CONC32.8 g/tIYkmtex77.0-37.0[facility] GroveComment on above: Performed By: #### [id number] ####[facility] [address] [address] Abbi Choudhary M.D. [id number] mean volume (Bld) [Entitic vol]9.0 fLLow 9.4-12.4[facility] GroveComment on above:Performed By: #### 06073 ####[facility] [address] [address] Abbi Choudhary M.D. [id number] Platelets (Bld) [#/Vol]264 10*3/pSHzvjtc686-059PwbqhrSelect Specialty Hospital - Beech GroveComment on above:Performed By: #### 24034 ####[facility] [address] [address] Abbi Choudhary M.D. [id number] (Bld) [#/Vol]3.15 10*6/uLLow4.00-5.20 [facility] GroveComment on above:Performed By: #### [id number] ####[facility] [address] [place], [place] [address] Abbi Choudhary M.D. [id number] (Bld) [#/Vol]7.49 10*3/uLNormal4.50-11.00[facility] GroveComment on above: Performed By: #### 62739 ####[facility] [address] [place], [place] [address] Abbi Choudhary M.D. [id number] panel Auto (Bld)on 19-20-7599Bpbshelmdpi distribution width (RBC) [Entitic vol]13.2 %11.6 - 14.8 %[facility]HealthHematocrit (Bld) [Volume fraction]29.6 %Low36.0 - 46.0 %[facility]HealthHemoglobin (Bld) [Mass/Vol]9.7 g/dLLow12.0 - 16.0 g/dLOhioHealthInterpretation and review of laboratory resultsAbnormalOhioHealthMCH (RBC) [Entitic mass]30.8 pg26.0 - 34.0 pgOhioHealthMCHC (RBC) [Mass/Vol]32.8 g/dL31.0 - 37.0 g/dLOhioHealthMCV (RBC) [Entitic vol]94.0 fL80.0 - 100.0 fLOhioHealthNucleated RBC (Bld) [#/Vol]0.00 10*3/uLOhioHealthNucleated RBC/100 WBC (Bld) [Ratio]0.0 %OhioHealthPlatelet mean volume (Bld) [Entitic vol]9.0 fLLow9.4 - 12.4 fLOhioHealthPlatelets (Bld) [#/Vol]264 10*3/uLOhioHealthRBC (Bld) [#/Vol]3.15 10*6/uLLowOhioHealthWBC (Bld) [#/Vol]7.49 10*3/uLOhioHealthOhioHealthCK [Catalytic activity/Vol]on 01-14-2024 Interpretation and review of laboratory resultsNormalOhioHealthOhioHealthCPKon [id number] U/GUzoohb53-308QbonnaSelect Specialty Hospital - Beech GroveComment on above:Performed By: #### [id number] ####[facility] [address] [place], [place] [address] Abbi Choudhary M.D. [id number] NO MBon 97-79-7784MD [Catalytic activity/Vol]57 U/L40 - 170 U/LOhioHealthGlucose (Bld) [Mass/Vol]on 06-79-6381Nyvkmim [Mass/Vol]194 mg/dL High65 - 99 mg/dLOhioHealthInterpretation and review of laboratory results AbnormalOhioHealthOhioHealthGlucose [Mass/Vol]77 mg/dL65 - 99 mg/dLOhioHealth Interpretation and review of laboratory resultsNormalOhioHealthOhioHealthGlucose [Mass/Vol]239 mg/qSHjvg01 - 99 mg/dLOhioHealthInterpretation and review of laboratory resultsAbnormalOhioHealthOhioHealthGlucose [Mass/Vol]99 mg/dL65 - 99 mg/dLOhioHealthInterpretation and review of laboratory resultsNormalOLouis Stokes Cleveland [facility] Centerealth [facility] GLUCOSE - RALSon 60-78-7985Ecvicme [Mass/Vol]194 mg/ePUrmb20-16 [facility] Bee[facility] GroveComment on above:Performed By: #### [id number] ####[facility] [address], [place] [address] Abbi Choudhary M.D. [id number] [Mass/Vol]77 mg/hXUdfswu21-06XfibfiColumbus Regional HealthComment on above:Performed By: #### [id number] ####MGNic[facility] [address], [place] [address] Abbi Choudhary M.D. [id number] [Mass/Vol]239 mg/fDRqac93-28IkezxtLogansport State Hospital on above:Performed By: #### [id number] ####MG[facility] [address], [place] [address] Abbi Choudhary M.D. [id number] [Mass/Vol]99 mg/dLNormal 65-99MColumbus Regional HealthComment on above:Performed By: #### [id number] ####[facility] [address], [place] [address] Abbi Choudhary M.D. [id number] FUNCTION PANELon 34-03-4026Csgttqt [Mass/Vol]3.4 g/dLNormal3.2-5.2MColumbus Regional HealthComascension standish hospital on above:Order Comment: [facility] has implemented the eGFR calculation approach that does not have a coefficient for race that conforms to the NKF-ASN Task Force Recommendations.Performed By: #### [id number] #### LAB [address] [place] [address] Abbi Choudhary M.D. [id number] gap [Moles/Vol]13 mmol/GQfzhyo19-67YauzirSelect Specialty Hospital - Beech Grove Comment on above:Order Comment: [facility] has implemented the eGFR calculation approach that does not have a coefficient for race that conforms to the NKF-ASN Task Force Recommendations.Performed By: #### [id number] ####[facility] [address] [place], [place] [address] Abbi Choudhary M.D. 36D0 [id number] [Mass/Vol]8.5 mg/dLNormal8.4-10.[address] [place] [address] on above:Order Comment: [facility] has implemented the eGFR calculation approach that does not have a coefficient for race that conforms to the NKF-ASN Task Force Recommendations.Performed By: #### [id number] ####[facility] [address], [place] [address] Abbi Choudhary M.D. [id number] [Moles/Vol]107 mmol/NIfcnne57-353EcnmpaMargaret Mary Community Hospital on above:Order Comment: [facility] has implemented the eGFR calculation approach that does not have a coefficient for race that conforms to the NKF-ASN Task Force Recommendations.Performed By: #### [id number] ####[facility] [address] [address] Abbi Choudhary M.D. [id number] [Mass/Vol]1.59 mg/dLHigh0.40-1.10[facility] on above:Order Comment: [facility] has implemented the eGFR calculation approach that does not have a coefficient for race that conforms to the NKF-ASN Task Force Recommendations.Performed By: #### [id number] ####[facility] [address] [place], [place] [address] Abbi Choudhary M.D. [id number] mL/min/1.73 m2Low>=60 [facility] on above:Order Comment: [facility] has implemented the eGFR calculation approach that does not have a coefficient for race that conforms to the NKF-ASN Task Force Recommendations. Result Comment: Estimated GFR was calculated using the 2020 CKD-EPI creatinine equation.Performed By: #### [id number] ####[facility] [address], [place] [address] Abbi Choudhary M.D. [id number] [Mass/Vol]149 mg/cDDjmw59-31OwnnafRiley Hospital for Children on above:Order Comment: [facility] has implemented the eGFR calculation approach that does not have a coefficient for race that conforms to the NKF-ASN Task Force Recommendations.Performed By: #### [id number] ####[facility] [address] [place], [place] [address] Abbi Choudhary M.D. [id number] (Bld) [Moles/Vol]25 mmol/VXdwowa58-42HgjgjaSelect Specialty Hospital - Beech Grove Comment on above:Order Comment: [facility] has implemented the eGFR calculation approach that does not have a coefficient for race that conforms to the NKF-ASN Task Force Recommendations.Performed By: #### [id number] ####[facility] [address] [place], [place] [address] Abbi Choudhary M.D. 36D0 507397Lwoimpcxq [Mass/Vol]4.7 mg/dLWyoming General Hospital2.7-4.5[facility] on above:Order Comment: [facility] has implemented the eGFR calculation approach that does not have a coefficient for race that conforms to the NKF-ASN Task Force Recommendations.Performed By: #### [id number] ####[facility] [address] [place], [place] [address] Abbi Choudhary M.D. [id number] [Moles/Vol]4.1 mmol/LNormal3.5-5.1MRiley Hospital for Children on above:Order Comment: [facility] has implemented the eGFR calculation approach that does not have a coefficient for race that conforms to the NKF-ASN Task Force Recommendations.Performed By: #### [id number] ####[facility] [address] [address] Abbi Choudhary M.D. [id number] [Moles/Vol]141 mmol/PJfgguf872-165MtraukMargaret Mary Community Hospital on above:Order Comment: [facility] has implemented the eGFR calculation approach that does not have a coefficient for race that conforms to the NKF-ASN Task Force Recommendations.Performed By: #### [id number] ####[facility] [address] [place], [place] [address]Alisia Choudhary M.D. [id number] nitrogen [Mass/Vol]28 mg/dLHigh8-25[facility] on above:Order Comment: [facility] has implemented the eGFR calculation approach that does not have a coefficient for race that conforms to the NKF-ASN Task Force Recommendations.Performed By: #### [id number] ####[facility] [address] [place], [place] [address] Abbi Choudhary M.D. [id number] nitrogen/Creatinine [Mass ratio]17.6 mg/quZsaqya51.0-20.0[facility] on above:Order Comment: [facility] has implemented the eGFR calculation approach that does not have a coefficient for race that conforms to the NKF-ASN Task Force Recommendations.Performed By: #### [id number] #### LAB [address], [place] [address]Alisia Choudhary M.D. [id number] function 2000 panel on 47-38-3762Sqfwjcx [Mass/Vol]3.4 g/dL3.2 - 5.2 g/dLOhioHealthAnion gap [Moles/Vol]13 mmol/L10 - 20 mmol/LOhioHealthCalcium [Mass/Vol]8.5 mg/dL8.4 - 10.2 mg/dLOhioHealthChloride [Moles/Vol]107 mmol/L98 - 108 mmol/LOhioHealth Creatinine [Mass/Vol]1.59 mg/dLHigh0.40 - 1.10 mg/dLOhioHealthGFR/1.73 sq M.predicted CKD-EPI (S/P/Bld) [Vol rate/Area]40Low- PINFOhioHealthComment on above:Estimated GFR was calculated using the 2020 CKD-EPI creatinine equation. Glucose [Mass/Vol]149 mg/jXYlsv70 - 99 mg/dLOhioHealthHCO3 [Moles/Vol]25 mmol/L 21 - 32 mmol/LOhioHealthInterpretation and review of laboratory resultsAbnormal OhioHealthPhosphate [Mass/Vol]4.7 mg/dLHigh2.7 - 4.5 mg/dLOhioHealthPotassium [Moles/Vol]4.1 mmol/L3.5 - 5.1 mmol/LOhioHealthSodium [Moles/Vol]141 mmol/L135 - 145 mmol/LOhioHealthUrea nitrogen [Mass/Vol]28 mg/dLHigh8 - 25 mg/dLOhioHealth Urea nitrogen/Creatinine [Mass ratio]17.6 mg/mg10.0 - 20.0OhioK[facility]tering [facility] has implemented the eGFR calculation approach that does not have a coefficient for race that conforms to the NKF-ASN Task Force Recommendations.[facility] CenterioHealthURINALYSISon 37-55-7136RHQHJNLN, URINENone SeenNormalNone SeenSelect Specialty Hospital - Beech GroveComment on above:Order Comment: Microscopic examination is performed on all urinalysis samples and only positive findings are reported. The test for blood on the chemical analytic portion of urinalysis may also be positive due to hemoglobinuria and myoglobinuria and if red blood cells are present they are quantified by microscopic examination. Performed By: #### [id number] ####[facility] [address] [place] [address] Abbi Choudhary M.D. [id number], URINENegativeNormalNegativeSelect Specialty Hospital - Beech GroveComascension standish hospital on above:Order Comment: Microscopic examination is performed on all urinalysis samples and only positive findings are reported. The test for blood on the chemical analytic portion of urinalysis may also be positive due to hemoglobinuria and myoglobinuria and if red blood cells are present they are quantified by microscopic examination.Performed By: #### [id number] ####[facility] [address], [place] [address] Abbi Choudhary M.D. [id number], URINE NegativeNormcaNegMadison State HospitalComment on above:Order Comment: Microscopic examination is performed on all urinalysis samples and only positive findings are reported. The test for blood on the chemical analytic portion of urinalysis may also be positive due to hemoglobinuria and myoglobinuria and if red blood cells are present they are quantified by microscopic examination. Performed By: #### [id number] ####[facility] [address], [place] [address] Abbi Choudhary M.D. [id number] (U)ClearNoalCLutheran Hospital of Indiana Comment on above:Order Comment: Microscopic examination is performed on all urinalysis samples and only positive findings are reported. The test for blood on the chemical analytic portion of urinalysis may also be positive due to hemoglobinuria and myoglobinuria and if red blood cells are present they are quantified by microscopic examination.Performed By: #### [id number] ####[facility] [address], [place] [address] Abbi Choudhary M.D. [id number] (U)Yellow NormalColorless, [facility] Hospital - IndianapolisComment on above:Order Comment: Microscopic examination is performed on all urinalysis samples and only positive findings are reported. The test for blood on the chemical analytic portion of urinalysis may also be positive due to hemoglobinuria and myoglobinuria and if red blood cells are present they are quantified by microscopic examination. Performed By: #### [id number] ####[facility] [address] [place], [place] [address] Abbi Choudhary M.D. [id number] Ql (U)150 mg/dLAbnormBluffton Regional Medical CenterComment on above:Order Comment: Microscopic examination is performed on all urinalysis samples and only positive findings are reported. The test for blood on the chemical analytic portion of urinalysis may also be positive due to hemoglobinuria and myoglobinuria and if red blood cells are present they are quantified by microscopic examination.Performed By: #### [id number] ####[facility] [address] [place] [address] Abbi Choudhary M.D. [id number] Ql (U) NegativeNormBluffton Regional Medical CenterComment on above:Order Comment: Microscopic examination is performed on all urinalysis samples and only positive findings are reported. The test for blood on the chemical analytic portion of urinalysis may also be positive due to hemoglobinuria and myoglobinuria and if red blood cells are present they are quantified by microscopic examination. Performed By: #### [id number] ####[facility] [address] [place] [address] Abbi Choudhary M.D. [id number] esterase Test strip Ql (U)NegativeNormal DeKal[facility] Memorial HospitalComment on above:Order Comment: Microscopic examination is performed on all urinalysis samples and only positive findings are reported. The test for blood on the chemical analytic portion of urinalysis may also be positive due to hemoglobinuria and myoglobinuria and if red blood cells are present they are quantified by microscopic examination.Performed By: #### [id number] ####[facility] [address] [place] [address] Abbi Choudhary M.D. [id number], URINERareNormalNone Seen, [facility] Comment on above:Order Comment: Microscopic examination is performed on all urinalysis samples and only positive findings are reported. The test for blood on the chemical analytic portion of urinalysis may also be positive due to hemoglobinuria and myoglobinuria and if red blood cells are present they are quantified by microscopic examination.Performed By: #### [id number] ####[facility] [address], [place] [address] Abbi Choudhary M.D. [id number], URINE NegativeNormalNegMadison State HospitalComment on above:Order Comment: Microscopic examination is performed on all urinalysis samples and only positive findings are reported. The test for blood on the chemical analytic portion of urinalysis may also be positive due to hemoglobinuria and myoglobinuria and if red blood cells are present they are quantified by microscopic examination. Performed By: #### [id number] ####[facility] [address] [place] [address] Abbi Choudhary M.D. [id number] (U)5.0 [pH]Normal5.0-7.0[facility] Comment on above:Order Comment: Microscopic examination is performed on all urinalysis samples and only positive findings are reported. The test for blood on the chemical analytic portion of urinalysis may also be positive due to hemoglobinuria and myoglobinuria and if red blood cells are present they are quantified by microscopic examination.Performed By: #### [id number] ####[facility] [address] [place] [address] Abbi Choudhary M.D. [id number] (U) [Mass/Vol]100 mg/dLAbnormalNegativeSelect Specialty Hospital - Beech GroveComment on above:Order Comment: Microscopic examination is performed on all urinalysis samples and only positive findings are reported. The test for blood on the chemical analytic portion of urinalysis may also be positive due to hemoglobinuria and myoglobinuria and if red blood cells are present they are quantified by microscopic examination.Performed By: #### [id number] ####[facility] [address] [address] Abbi Choudhary M.D. [id number] LM.HPF (Urine sed) [#/Area]1 /[HPF]Normal0-3MColumbus Regional HealthComment on above:Order Comment: Microscopic examination is performed on all urinalysis samples and only positive findings are reported. The test for blood on the chemical analytic portion of urinalysis may also be positive due to hemoglobinuria and myoglobinuria and if red blood cells are present they are quantified by microscopic examination. Performed By: #### [id number] ####[facility] [address], [place] [address] Abbi Choudhary M.D. [id number] gravity (U) [Rel density]1.017Normal 1.005-1.025[facility] on above:Order Comment: Microscopic examination is performed on all urinalysis samples and only positive findings are reported. The test for blood on the chemical analytic portion of urinalysis may also be positive due to hemoglobinuria and myoglobinuria and if red blood cells are present they are quantified by microscopic examination.Performed By: #### [id number] ####[facility] [address] [address] Abbi Choudhary M.D. [id number] EPITHELIAL<Normal0-4[facility] on above:Order Comment: Microscopic examination is performed on all urinalysis samples and only positive findings are reported. The test for blood on the chemical analytic portion of urinalysis may also be positive due to hemoglobinuria and myoglobinuria and if red blood cells are present they are quantified by microscopic examination.Performed By: #### [id number] #### LAB [address] [address] Abbi Choudhary M.D. [id number], URINE<2.0Normal<2.0[facility] on above:Order Comment: Microscopic examination is performed on all urinalysis samples and only positive findings are reported. The test for blood on the chemical analytic portion of urinalysis may also be positive due to hemoglobinuria and myoglobinuria and if red blood cells are present they are quantified by microscopic examination. Performed By: #### [id number] ####[facility] [address], [place] [address] Abbi Choudhary M.D. [id number] LM.HPF (Urine sed) [#/Area]1 /[HPF]Normal0-5[facility] on above:Order Comment: Microscopic examination is performed on all urinalysis samples and only positive findings are reported. The test for blood on the chemical analytic portion of urinalysis may also be pos itive due to hemoglobinuria and myoglobinuria and if red blood cells are present they are quantified by microscopic examination.Performed By: #### [id number] #### LAB [address], [place] [address] Abbi Choudhary M.D. [id number] UrinalysisOrdered By: Kendra Bae on 80-30-7340Dxbvjeoy Auto Ql (U)None Seen None Seen /hpfOhioHealthBilirubin Ql (U)NegativeNegativeOhioHealthClarity Refractometry automated (U)ClearClearOhioHealthColor (U)YellowColorless, Yellow OhioHealthEpithelial cells.squamous Auto (Urine sed) [#/Area]OhioHealthGlucose Auto test strip (U) [Mass/Vol]150 mg/dLAbnormalNegativeOhioHealthHemoglobin Auto test strip Ql (U)NegativeNegativeOhioHealthInterpretation and review of laboratory resultsAbnormalOhioHealthKetones (U) [Mass/Vol]NegativeNegative mg/dL OhioHealthLeukocyte esterase Auto test strip Ql (U)NegativeNegativeOhioHealth Mucus Auto (Urine sed) [#/Area]RareNone Seen, Rare /lpfOhioHealthNitrite Auto test strip Ql (U)NegativeNegativeOhioHealthpH (U)5.0 [pH]5.0 - 7.0[facility] Protein (U) [Mass/Vol]100 mg/dLAbnormalNegativeOhioHealthRBC Auto (Urine sed) [#/Area]1OhioHealthSpecific gravity (U) [Rel density]1.0171.005 - 1.025 OhioHealthUrobilinogen (U) [Mass/Vol]mg/dLNINF - 2.0 mg/dLOhioHealthWBC Auto (Urine sed) [#/Area]1OhioHealthMicroscopic examination is performed on all urinalysis samples and only positive findings are reported. The test for blood on the chemical analytic portion of urinalysis may also be positive due to he moglobinuria and myoglobinuria and if red blood cells are present they are quantified by microscopic examination.OhioHealthOhioHealthCBCon 21-07-1099NADT NRBC0.0 %[facility] County Memorial HospitalComment on above:Performed By: #### [id number] ####H LAB [address] [address] Abbi Choudhary M.D. 36D0 [id number] NRBC ABS COUNT0.00 K/mcLNormal0.00-0.00[facility] HospitalComment on above:Performed By: #### [id number] ####[facility] [address] [address] Abbi Choudhary M.D. [id number] distribution width (RBC) [Ratio] 13.1 %Oyfcsn62.6-14.8[facility] HospitalComment on above:Performed By: #### 58562 ####[facility] [address] [address] Abbi Choudhary M.D. [id number] (Bld) [Volume fraction]27.5 %Low36.0-46.0[facility] HospitalComment on above:Performed By: #### 75505 ####[facility] [address] [address] Abbi Choudhary M.D. [id number] (Bld) [Mass/Vol]9.3 g/dLLow12.0-16.0[facility] Beech GroveComment on above:Performed By: #### 51211 ####[facility] [address] [address] Abbi Choudhary M.D. [id number] (RBC) [Entitic mass]31.1 hrLvoliq39.0-34.0[facility] Comment on above:Performed By: #### 58562 ####[facility] [address] [address] Abbi Choudhary M.D. [id number] (RBC) [Entitic vol]92.0 fLNormal 80.0-100.0[facility] Beech GroveComment on above:Performed By: #### [id number] ####[facility] [address] [address] Abbi Choudhary M.D. 36D0 [id number] CORPUSCULAR HEMOGLOBIN CONC33.8 g/cUMjqoup59.0-37.0[facility] Beech GroveComment on above:Performed By: #### [id number] ####[facility] [address] [address] Abbi Choudhary M.D. [id number] mean volume (Bld) [Entitic vol]8.6 fLLow9.4-12.4[facility] Beech GroveComment on above:Performed By: #### [id number] ####[facility] [address] [place], [place] [address] Abbi Choudhary M.D. [id number] (Bld) [#/Vol]238 10*3/jECfxswd313-558UokidkSelect Specialty Hospital - Beech GroveComment on above:Performed By: #### [id number] ####[facility] [address] [address] Abbi Choudhary M.D. [id number] (Bld) [#/Vol]2.99 10*6/uL Low4.00-5.20[facility] Beech GroveComment on above:Performed By: #### [id number] ####[facility] [address] [address] Abbi Choudhary M.D. 36D0 121424GMQ (Bld) [#/Vol]7.09 10*3/uLNormal4.50-11.00[facility] Comment on above:Performed By: #### [id number] ####[facility] [address] [address] Abbi Choudhary M.D. [id number] panel Auto (Bld)on 01-13-2024 Erythrocyte distribution width (RBC) [Entitic vol]13.1 %11.6 - 14.8 %[facility] Hematocrit (Bld) [Volume fraction]27.5 %Low36.0 - 46.0 %OhioHealthHemoglobin (Bld) [Mass/Vol]9.3 g/dLLow12.0 - 16.0 g/dLOhioHealthInterpretation and review of laboratory resultsAbnormalOhioHealthMCH (RBC) [Entitic mass]31.1 pg26.0 - 34.0 pgOhioHealthMCHC (RBC) [Mass/Vol]33.8 g/dL31.0 - 37.0 g/dLOhioHealthMCV (RBC) [Entitic vol]92.0 fL80.0 - 100.0 fLOhioHealthNucleated RBC (Bld) [#/Vol] 0.00 10*3/uLOhioHealthNucleated RBC/100 WBC (Bld) [Ratio]0.0 %OhioHealthPlatelet mean volume (Bld) [Entitic vol]8.6 fLLow9.4 - 12.4 fLOhioHealthPlatelets (Bld) [#/Vol]238 10*3/uLOhioHealthRBC (Bld) [#/Vol]2.99 10*6/uLLowOhioHealthWBC (Bld) [#/Vol]7.09 10*3/uLOhioHealthOhioHealthCONSULTon 19-60-0299CNLVPGQQqeuvuZnptok General HospitalCT FOOT LEFT WITHOUT CONTRASTon 99-88-0492LT FOOT LEFT WITHOUT CONTRASTWhite County Memorial HospitalComment on above:Order Comment: Injury/Trauma or Illness?:Illness/OtherHow long have you had these symptoms (acute/chronic)?:AcuteReason for exam?:r.o OM left great toeType of Exam?:InitialAdditional signs and symptoms?:nCT Foot - left WO contraston 01-13-2024 1. [...] to the medial malleolus consistent with sequela ofremote trauma. 4. 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 TROY/xochitl Workstation ID: [id number] RISEXAMINATION: CT FOOT LEFT WITHOUT CONTRAST HISTORY: ORDERING [...] using automated exposure control and/or adjustment of mAand/or kV according to patient size and/or use of iterative reconstruction technique. 2 mm thick axial images were obtained through the left foot and ankle without contrast. 2D reformatted images were created in the coronal and sagittal planes. FINDINGS: There is partial visualization of hardware in the distal fibula with chronic- appearing deformity ofthe distal fibula. The hardware is incompletely included on the wnyiz-xc-xqyf for this study. Thereis cystic change and spurring along the distal fibula. The distal tibia appears intact. There is anOCD lesion involving the medial talar dome measuring 5 mm in diameter with no loose or unstable osteochondral fragment. Areas of corticated bony density along the posteroinferior margin of the medialmalleolus are consistent with sequela of remote trauma. [...] of the 1st toe or elsewhere in thefoot. No acute fracture is identified. The tarsometatarsal alignment is anatomic. No soft tissue gas is evident. MRI would be more sensitive than CT for evaluation of the soft tissues. Preston Davis MD - 01/13/2024 EXAMINATION: CT FOOT LEFT [...] using automated exposure control and/or adjustment of mAand/or kV according to patient size and/or use of iterative reconstruction technique. 2 mm thick axial images were obtained through the left foot and ankle without contrast. 2D reformatted images were created in the coronal and sagittal planes. FINDINGS: There is partial visualization of hardware in the distal fibula with chronic- appearing deformity ofthe distal fibula. The hardware is incompletely included on the kgnsn-mi-xuvi for this study. Thereis cystic change and spurring along the distal fibula. The distal tibia appears intact. There is anOCD lesion involving the medial talar dome measuring 5 mm in diameter with no loose or unstable osteochondral fragment. Areas of corticated bony density along the posteroinferior margin of the medialmalleolus are consistent with sequela of remote trauma. [...] of the 1st toe or elsewhere in thefoot. No acute fracture is identified. The tarsometatarsal [...] to the medial malleolus consistent with sequela ofremote trauma. 4. 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 TROY/xochitl Workstation ID: [id number] [facility] (narrative)[facility] - left WO contrastOrdered By: Preston Rajan on [id number] Work Phone: ecg 12 [address]on 63-28-5127Oqyowc Vsnj50TPPRjsoTybxxuO Fcph64oafjczwYawsPvthlqH-B Aftkrsgg012 msOhioHealthQ-T Zkepbavq347 msOhioHealth QRS Bgexxomg40 msOhioHealthQTC Calculation (Carline)439 msOhioHealthR Axis18 degreesOhioHealthT Adsz63dykwdtnCaqmCfxzjkUjansinqocz Tdfu21JUZWhwnVxwjnvYxxbij sinus rhythm Possible Left atrial enlargement Confirmed by Monique Pillai MD ([id number]) on 01/13/2024 8:52:[address] [facility] Glucose (Bld) [Mass/Vol]on 14-21-5410Aomcgrd [Mass/Vol]177 mg/lXOjbe49 - 99 mg/dLOhioHealthInterpretation and review of laboratory resultsAbnoMercy Health St. Elizabeth Youngstown HospitalGlucose [Mass/Vol]119 mg/hYNoka57 - 99 mg/dLOhioHealthInterpretation and review of laboratory resultsAbnoBrecksville VA / Crille HospitalGlucose [Mass/Vol] 116 mg/pWFktg88 - 99 mg/dLOhioHealthInterpretation and review of laboratory resultsAbnormKettering Health TroyGlucose [Mass/Vol]103 mg/lBJnck39 - 99 mg/dL OhioHealthInterpretation and review of laboratory resultsAbnormMercy Health Clermont HospitalGlucose [Mass/Vol]122 mg/sRKwps14 - 99 mg/dLOhioHealthInterpretation and review of laboratory resultsAbnoAultman Alliance Community Hospital GLUCOSE - Micky 96-86-5715Obnhewa [Mass/Vol]177 mg/tOSpct65-94Xyykkj [facility] HospitalComment on above:Performed By: #### [id number] ####[facility] [address] [address] Abbi Choudhary M.D. [id number] [Mass/Vol]119 mg/nLQsrd82-02Gofkgf [facility] HospitalComment on above:Performed By: #### [id number] ####[facility] [address] [address] Abbi Choudhary M.D. [id number] [Mass/Vol]116 mg/pSFlvn09-85Ryspmo [facility] HospitalComment on above:Performed By: #### [id number] ####[facility] [address] [place], [place] [address] Abbi Choudhary M.D. [id number] [Mass/Vol]103 mg/lFWdks74-25EhirksColumbus Regional Health Comment on above:Performed By: #### [id number] ####[facility] [address] [place], [place] [address] Abbi Choudhary M.D. [id number] [Mass/Vol]122 mg/bCKxlv26-42 [facility] GroveComment on above:Performed By: #### [id number] ####[facility] [address] [place], [place] [address] Abbi Choudhary M.D. [id number] FUNCTION PANELon 42-03-7910Exiegcl [Mass/Vol]3.1 g/dLLow3.2-5.2MColumbus Regional HealthComment on above:Order Comment: [facility] has implemented the eGFR calculation approach that does not have a coefficient for race that conforms to the NKF-ASN Task Force Recommendations.Performed By: #### [id number] ####[facility] [address] [place], [place] [address] Abbi Choudhary M.D. [id number] gap [Moles/Vol]16 mmol/DKfvklr36-16RlwtyoSelect Specialty Hospital - [facility] Comment on above:Order Comment: [facility] has implemented the eGFR calculation approach that does not have a coefficient for race that conforms to the NKF-ASN Task Force Recommendations.Performed By: #### [id number] ####[facility] [address] [place], [place] [address] Abbi Choudhary M.D. 36D0 [id number] [Mass/Vol]8.4 mg/dLNormal8.4-10.2MColumbus Regional HealthComascension standish hospital on above:Order Comment: [facility] has implemented the eGFR calculation approach that does not have a coefficient for race that conforms to the NKF-ASN Task Force Recommendations.Performed By: #### [id number] ####[facility] [address] [place], [place] [address] Abbi Choudhary M.D. [id number] [Moles/Vol]105 mmol/TEqxanc46-237YkqqktMargaret Mary Community Hospital on above:Order Comment: [facility] has implemented the eGFR calculation approach that does not have a coefficient for race that conforms to the NKF-ASN Task Force Recommendations.Performed By: #### [id number] ####[facility] [address] [place], [place] [address] Abbi Choudhary M.D. [id number] [Mass/Vol]1.32 mg/dLHigh0.40-1.10[facility] on above:Order Comment: [facility] has implemented the eGFR calculation approach that does not have a coefficient for race that conforms to the NKF-ASN Task Force Recommendations.Performed By: #### [id number] ####[facility] [address] [address] Abbi Choudhary M.D. [id number] mL/min/1.73 m2Low>=60 [facility] on above:Order Comment: [facility] has implemented the eGFR calculation approach that does not have a coefficient for race that conforms to the NKF-ASN Task Force Recommendations. Result Comment: Estimated GFR was calculated using the 2020 CKD-EPI creatinine equation.Performed By: #### [id number] ####[facility] [address] [address] Abbi Choudhary M.D. [id number] [Mass/Vol]157 mg/fHVzkq39-35DlinuhRiley Hospital for Children on above:Order Comment: [facility] has implemented the eGFR calculation approach that does not have a coefficient for race that conforms to the NKF-ASN Task Force Recommendations.Performed By: #### [id number] ####[facility] [address] [place], [place] [address] Abbi Choudhary M.D. [id number] (Bld) [Moles/Vol]21 mmol/OKilcgu87-43MrvtdmSelect Specialty Hospital - [facility] Comment on above:Order Comment: [facility] has implemented the eGFR calculation approach that does not have a coefficient for race that conforms to the NKF-ASN Task Force Recommendations.Performed By: #### [id number] ####[facility] [address] [address] Abbi Choudhary M.D. 36D0 [id number] [Mass/Vol]3.7 mg/dLNormal2.7-4.5[facility] on above:Order Comment: [facility] has implemented the eGFR calculation approach that does not have a coefficient for race that conforms to the NKF-ASN Task Force Recommendations.Performed By: #### [id number] ####[facility] [address] [address] Abbi Choudhary M.D. [id number] [Moles/Vol]4.1 mmol/LNormal3.5-5.1MRiley Hospital for Children on above:Order Comment: [facility] has implemented the eGFR calculation approach that does not have a coefficient for race that conforms to the NKF-ASN Task Force Recommendations.Result Comment: Slightly HemolyzedPerformed By: #### [id number] #### LAB [address] [place] [address] Abbi Choudhary M.D. [id number] [Moles/Vol]138 mmol/UKhyhjb576-544VbivgrSelect Specialty Hospital - [facility] Comment on above:Order Comment: [facility] has implemented the eGFR calculation approach that does not have a coefficient for race that conforms to the NKF-ASN Task Force Recommendations.Performed By: #### [id number] ####[facility] [address] [address] Abbi Choudhary M.D. 36D0 [id number] nitrogen [Mass/Vol]27 mg/dLHigh8-25[facility] Bee[facility] GroveComascension standish hospital on above:Order Comment: [facility] has implemented the eGFR calculation approach that does not have a coefficient for race that conforms to the NKF-ASN Task Force Recommendations.Performed By: #### [id number] #### LAB [address] [address] Abbi Choudhary M.D. [id number] nitrogen/Creatinine [Mass ratio]20.5 mg/gpBsup11.0-20.0[facility] Comment on above:Order Comment: [facility] has implemented the eGFR calculation approach that does not have a coefficient for race that conforms to the NKF-ASN Task Force Recommendations.Performed By: #### [id number] ####[facility] [address] [address] Abbi Choudhary M.D. 36D0 [id number] function 2000 panelOrdered By: Alberta Vo on 01-13-2024 Albumin [Mass/Vol]3.1 g/dLLow3.2 - 5.2 g/dLOhioHealthAnion gap [Moles/Vol]16 mmol/L10 - 20 mmol/LOhioHealthCalcium [Mass/Vol]8.4 mg/dL8.4 - 10.2 mg/dL OhioHealthChloride [Moles/Vol]105 mmol/L98 - 108 mmol/LOhioHealthCreatinine [Mass/Vol]1.32 mg/dLHigh0.40 - 1.10 mg/dLOhioHealthGFR/1.73 sq M.predicted CKD- EPI (S/P/Bld) [Vol rate/Area]51Low- PINFOhioHealthComment on above:Estimated GFR was calculated using the 2020 CKD-EPI creatinine equation.Glucose [Mass/Vol]157 mg/cKFtdp96 - 99 mg/dLOhioHealthHCO3 [Moles/Vol]21 mmol/L21 - 32 mmol/L LouisianaHealthInterpretation and review of laboratory resultsAbnormalOhioHealth Phosphate [Mass/Vol]3.7 mg/dL2.7 - 4.5 mg/dLOhioHealthPotassium [Moles/Vol]4.1 mmol/L3.5 - 5.1 mmol/LOhioHealthComment on above:Slightly HemolyzedSodium [Moles/Vol]138 mmol/L135 - 145 mmol/LOhioHealthUrea nitrogen [Mass/Vol]27 mg/dL High8 - 25 mg/dLOhioHealthUrea nitrogen/Creatinine [Mass ratio]20.5 mg/mgHigh 10.0 - 20.0OhioHealthOhioHealth [facility] has implemented the eGFR calculation approach that does not have a coefficient for race that conforms to the NKF-ASN Task Force Recommendations.OhioHealthOhioHealthBASIC METABOLIC PANEL on 58-03-9805Vzvpx gap [Moles/Vol]14 mmol/KMjdsyj41-70JboippSelect Specialty Hospital [facility] Comment on above:Order Comment: [facility] has implemented the eGFR calculation approach that does not have a coefficient for race that conforms to the NKF-ASN Task Force Recommendations.Performed By: #### [id number] ####[facility] [address] [place], [place] [address] Abbi Choudhary M.D. 36D0 [id number] [Mass/Vol]9.0 mg/dLNormal8.4-10.2MRiley Hospital for Children on above:Order Comment: [facility] has implemented the eGFR calculation approach that does not have a coefficient for race that conforms to the NKF-ASN Task Force Recommendations.Performed By: #### [id number] ####[facility] [address] [address] Abbi Choudhary M.D. [id number] [Moles/Vol]104 mmol/IEshtve93-753DmzkoiSelect Specialty Hospital - Beech GroveComment on above:Order Comment: [facility] has implemented the eGFR calculation approach that does not have a coefficient for race that conforms to the NKF-ASN Task Force Recommendations.Performed By: #### [id number] ####[facility] [address] [address] Abbi Choudhary M.D. [id number] [Mass/Vol]1.06 mg/dLNormal0.40-1.10[facility] on above:Order Comment: [facility] has implemented the eGFR calculation approach that does not have a coefficient for race that conforms to the NKF-ASN Task Force Recommendations.Performed By: #### [id number] ####[facility] [address] [address] Abbi Choudhary M.D. [id number] mL/min/1.73 y8Jkzibf >=60[facility] on above:Order Comment: [facility] has implemented the eGFR calculation approach that does not have a coefficient for race that conforms to the NKF-ASN Task Force Recommendations. Result Comment: Estimated GFR was calculated using the 2020 CKD-EPI creatinine equation.Performed By: #### [id number] ####[facility] [address] [address] Abbi Choudhary M.D. [id number] [Mass/Vol]109 mg/eYFwte97-84LvxhcdColumbus Regional HealthComment on above:Order Comment: [facility] has implemented the eGFR calculation approach that does not have a coefficient for race that conforms to the NKF-ASN Task Force Recommendations.Performed By: #### [id number] ####[facility] [address] [address] Abbi Choudhary M.D. [id number] (Bld) [Moles/Vol]26 mmol/CPpbkbt52-85WqalwgSelect Specialty Hospital - Bee[facility] Grove Comment on above:Order Comment: [facility] has implemented the eGFR calculation approach that does not have a coefficient for race that conforms to the NKF-ASN Task Force Recommendations.Performed By: #### [id number] ####[facility] [address] [address] Abbi Choudhary M.D. 36D0 [id number] [Moles/Vol]4.1 mmol/LNormal3.5-5.1MRiley Hospital for Children on above:Order Comment: [facility] has implemented the eGFR calculation approach that does not have a coefficient for race that conforms to the NKF-ASN Task Force Recommendations.Performed By: #### [id number] ####[facility] [address] [address] Abbi Choudhary M.D. [id number] [Moles/Vol]140 mmol/NNgfhch850-555PpxqyuSelect Specialty Hospital - Beech GroveComascension standish hospital on above:Order Comment: [facility] has implemented the eGFR calculation approach that does not have a coefficient for race that conforms to the NKF-ASN Task Force Recommendations.Performed By: #### [id number] ####[facility] [address] [address] Abbi Choudhary M.D. [id number] nitrogen [Mass/Vol] 24 mg/dLNormal8-25[facility] on above:Order Comment: [facility] has implemented the eGFR calculation approach that does not have a coefficient for race that conforms to the NKF-ASN Task Force Recommendations.Performed By: #### [id number] ####[facility] [address] [place], [place] [address] Abbi Choudhary M.D. [id number] nitrogen/Creatinine [Mass ratio]22.6 mg/laCrst83.0-20.0[facility] Bee[facility] GroveComment on above:Order Comment: [facility] has implemented the eGFR calculation approach that does not have a coefficient for race that conforms to the NKF-ASN Task Force Recommendations.Performed By: #### [id number] ####[facility] [address] [place], [place] [address] Abbi Choudhary M.D. [id number] metabolic 2000 panelon 81-12-1283Cioac gap [Moles/Vol]14 mmol/L10 - 20 mmol/LOhioHealthCalcium [Mass/Vol]9.0 mg/dL8.4 - 10.2 mg/dLOhioHealthChloride [Moles/Vol]104 mmol/L98 - 108 mmol/LOhioHealthCreatinine [Mass/Vol]1.06 mg/dL0.40 - 1.10 mg/dLOhioHealth GFR/1.73 sq M.predicted CKD-EPI (S/P/Bld) [Vol rate/Area]66- PINFOhioHealth Comment on above:Estimated GFR was calculated using the 2020 CKD-EPI creatinine equation.Glucose [Mass/Vol]109 mg/gDIcxr62 - 99 mg/dLOhioHealthHCO3 [Moles/Vol] 26 mmol/L21 - 32 mmol/LOhioHealthInterpretation and review of laboratory results AbnormalOhioHealthPotassium [Moles/Vol]4.1 mmol/L3.5 - 5.1 mmol/LOhioHealth Sodium [Moles/Vol]140 mmol/L135 - 145 mmol/LOhioHealthUrea nitrogen [Mass/Vol]24 mg/dL8 - 25 mg/dLOhioHealthUrea nitrogen/Creatinine [Mass ratio]22.6 mg/mgHigh 10.0 - 20.0OhioKind[facility] has implemented the eGFR calculation approach that does not have a coefficient for race that conforms to the NKF-ASN Task Force Recommendations.[facility] CenterioMercy Health St. Rita'S Medical CenterCBC Auto Differential on 62-20-1664Lpnqusgif (Bld) [#/Vol]0.06 10*3/uLOhioHealthBasophils/100 WBC (Bld)0.6 %OhioHealthEosinophils (Bld) [#/Vol]0.63 10*3/uLHighOhioHealth Eosinophils/100 WBC (Bld)6.5 %[facility] PrebleErythrocyte distribution width (RBC) [Entitic vol]12.9 %11.6 - 14.8 %OhioHealthHematocrit (Bld) [Volume fraction]34.6 %Low36.0 - 46.0 %OhioHealthHemoglobin (Bld) [Mass/Vol]11.7 g/dLLow12.0 - 16.0 g/dLOhioHealthImmature granulocytes (Bld) [#/Vol]0.05 10*3/uLOhioHealthImmature granulocytes/100 WBC (Bld)0.50 %OhioHealthComment on above:The IG parameter is the percentage of metamyelocytes, myelocytes and promyelocytes. An immature gran ulocyte count (IG) of 1% or more suggests the possibility of infection, an IG count of 3% is very likely related to an infection.Interpretation and review of laboratory resultsAbnormalOhioHealthLymphocytes (Bld) [#/Vol]1.77 10*3/uL OhioHealthLymphocytes/100 WBC (Bld)18.3 %[facility]bleMCH (RBC) [Entitic mass]31.0 pg26.0 - 34.0 pgOhioHealthMCHC (RBC) [Mass/Vol]33.8 g/dL31.0 - 37.0 g/dL [facility] PrebleMCV (RBC) [Entitic vol]91.5 fL80.0 - 100.0 fLOhioHealthMonocytes (Bld) [#/Vol]0.47 10*3/uLOhioHealthMonocytes/100 WBC (Bld)4.9 %OhioHealthNeutrophils (Bld) [#/Vol]6.70 10*3/uLOhioHealthNeutrophils/100 WBC (Bld)69.2 %[facility] Nucleated RBC (Bld) [#/Vol]0.00 10*3/uLOhioHealthNucleated RBC/100 WBC (Bld) [Ratio]0.0 %OhioHealthPlatelet mean volume (Bld) [Entitic vol]9.1 fLLow9.4 - 12.4 fLOhioHealthPlatelets (Bld) [#/Vol]291 10*3/uLOhioHealthRBC (Bld) [#/Vol] 3.78 10*6/uLLowOhioHealthWBC (Bld) [#/Vol]9.68 10*3/uLOhioHealthOhioHealthCBC WITH AUTO DIFFERENTIALon 69-49-3440PXNZ NRBC0.0 %[facility] Comment on above:Performed By: #### [id number] ####[facility] [address] [place], [place] [address] Abbi Choudhary M.D. [id number] NRBC ABS COUNT0.00 K/mcLNormal 0.00-0.00[facility] Bee[facility] GroveComment on above:Performed By: #### [id number] ####[facility] [address] [address] Abbi Choudhary M.D. 36 [id number] ABSOLUTE COUNT0.06 K/mcLNormal0.00-0.30[facility] Comment on above:Performed By: #### [id number] ####[facility] [address] [place], [place] [address] Abbi Choudhary M.D. [id number]/100 WBC (Bld)0.6 %[facility] CenterComment on above:Performed By: #### [id number] ####[facility] [address] [place], [place] [address] Abbi Choudhary M.D. [id number] (Bld) [#/Vol]0.63 10*3/uLHigh0.00-0.50[facility] GroveComment on above: Performed By: #### [id number] ####[facility] [address] [place], [place] [address] Abbi Choudhary M.D. [id number]/100 WBC (Bld)6.5 %[facility] HospitalComment on above:Performed By: #### [id number] ####[facility] [address] [address] Abbi Choudhary M.D. [id number] distribution width (RBC) [Ratio]12.9 %Vfwhom35.6-14.8[facility] Comment on above:Performed By: #### [id number] ####[facility] [address] [address] Abbi Choudhary M.D. [id number] (Bld) [Volume fraction] 34.6 %Low36.0-46.0[facility] GroveComment on above:Performed By: #### [id number] ####[facility] [address] [address] Abbi Choudhary M.D. [id number] (Bld) [Mass/Vol]11.7 g/dLLow12.0-16.0[facility] GroveComment on above:Performed By: #### [id number] ####[facility] [address] [address] Abbi Choudhary M.D. [id number] ABSOLUTE0.05 K/mcL Normal0.00-0.30[facility] GroveComment on above:Performed By: #### [id number] ####[facility] [address] [address] Abbi Choudhary M.D. [id number] PERCENT0.50 %NormalSelect Specialty Hospital - Beech GroveComment on above:Result Comment: The IG parameter is the percentage of metamyelocytes, myelocytes and promyelocytes.An immature granulocyte count (IG) of 1% or more suggests the possibility of infection, an IG countof 3% is very likely related to an infection.Performed By: #### [id number] ####[facility] [address] [address] Abbi Choudhary M.D. [id number] (Bld) [#/Vol]1.77 10*3/uLNormal0.90-4.00[facility] GroveComment on above:Performed By: #### [id number] ####[facility] [address] [place], [place] [address] Abbi Choudhary M.D. [id number]/100 WBC (Bld)18.3 %NormalUnion Hospital HospitalComment on above:Performed By: #### [id number] ####[facility] [address] [address] Abbi Choudhary M.D. [id number] (RBC) [Entitic mass]31.0 pgNormal 26.0-34.0[facility] HospitalComment on above:Performed By: #### [id number] ####[facility] [address] [address] Abbi Choudhary M.D. 36 [id number] (RBC) [Entitic vol]91.5 hBUopamg41.0-100.0[facility] Comment on above:Performed By: #### [id number] ####[facility] [address] [address] Abbi Choudhary M.D. [id number] CORPUSCULAR HEMOGLOBIN CONC33.8 g/tLSjkhid30.0-37.0[facility] GroveComment on above:Performed By: #### [id number] ####[facility] [address] [address] Abbi Choudhary M.D. [id number] (Bld) [#/Vol]0.47 10*3/uLNormal0.30-0.90[facility] GroveComment on above:Performed By: #### [id number] ####[facility] [address] [address] Abbi Choudhary M.D. [id number]/100 WBC (Bld) 4.9 %NormalUnion Hospital HospitalComment on above:Performed By: #### [id number] ####[facility] [address] [address] Abbi Choudhary M.D. [id number] ABSOLUTE COUNT6.70 K/mcLNormal1.70-7.00[facility] GroveComment on above:Performed By: #### [id number] ####[facility] [address] [address] Abbi Choudhary M.D. [id number]/100 WBC (Bld) 69.2 %NormalSelect Specialty Hospital - Beech GroveComment on above:Performed By: #### [id number] ####[facility] [address] [address]Alisia Choudhary M.D. 36 [id number] mean volume (Bld) [Entitic vol]9.1 fLLow9.4-12.4[facility] Bee[facility] GroveComment on above:Performed By: #### [id number] ####[facility] [address] [address] Abbi Choudhary M.D. [id number] (Bld) [#/Vol] 291 10*3/hMQllhpi729-092FztjtpSelect Specialty Hospital - Beech GroveComment on above:Performed By: #### [id number] ####[facility] [address] [address] Abbi Choudhary M.D. [id number] (Bld) [#/Vol]3.78 10*6/uLLow4.00-5.20[facility] Comment on above:Performed By: #### [id number] ####[facility] [address] [address] Abbi Choudhary M.D. [id number] (Bld) [#/Vol]9.68 10*3/uLNormal 4.50-11.00[facility] Bee[facility] GroveComment on above:Performed By: #### [id number] ####[facility] [address] [address] Abbi Cohudhary M.D. 36 [id number] [Mass/Vol]on 76-83-4453Znpvobqjwwyqyt and review of laboratory resultsNormalOhioHealthOhioHealthCRP, INFLAMMATIONon 27-23-1313NJJ [Mass/Vol]8.2 mg/LNormal0.0-10.0[facility] GroveComment on above:Performed By: #### [id number] ####[facility] [address] [place], [place] [address] Abbi Choudhary M.D. [id number], Inflammationon 29-55-3184XPY [Mass/Vol]8.2 mg/L0.0 - 10.0 mg/L [facility] PrebleED Prov Noteon 78-03-7697EA Prov NoteNormalSelect Specialty Hospital - Beech GroveESR Westergren method (Bld) [Velocity]on 22-42-3023DKL (Bld) [Velocity]40 mm/hHigh OhioHealthInterpretation and review of laboratory resultsAbnormalOUniversity Hospitals Portage Medical Centerth [facility] PrebleGlucose (Bld) [Mass/Vol]on 13-78-2618Psgiwdo [Mass/Vol]92 mg/dL65 - 99 mg/dLOhioHealthInterpretation and review of laboratory resultsNoMercy Health St. Elizabeth Youngstown HospitalGold Topon 13-26-0191Mprlk TubeHold for add-ons.OhioHealthComment on above:Auto resulted.[facility] PrebleH AND Paulino 01-12-2024H AND PNormalSelect Specialty Hospital - Beech GroveHEMOGLOBIN A1Con 41-72-4478Hakbkzb [Mass/Vol]220 mg/tDQxws38-846IyczpwSelect Specialty Hospital - Beech GroveComment on above:Performed By: #### [id number] ####[facility] [address] [place], [place] [address] Abbi Choudhary M.D. [id number] (Bld) [Mass fraction]9.3 %High4.2-5.6MColumbus Regional HealthComment on above:Performed By: #### [id number] ####[facility] [facility] [address], [place] [address] Abbi Choudhary M.D. [id number] (Bld) [Mass fraction]on 59-19-8383Hfxtifz glucose Estimated from glycated hemoglobin (Bld) [Mass/Vol]220 mg/kQFskj24 - 114 mg/dLOhioHealth Interpretation and review of laboratory resultsAbnormalOhiSumma Health Wadsworth - Rittman Medical CenterOhioHealth Hemoglobin A1con 94-31-0837JkN2t (Bld) [Mass fraction]9.3 %High4.2 - 5.6 % [facility]No Panel Informationon 82-92-8270Ocrsa TubeHold for add-ons.[facility] Comment on above:Auto resulted.[facility] GLUCOSE - RALSon 27-75-6238Rdsmoaj [Mass/Vol]92 mg/mOLkzlbh91-00ImlmlnColumbus Regional HealthComment on above:Performed By: #### [id number] ####[facility] [address], [place] [address] Abbi Choudhary M.D. [id number] RATEon 30-63-8278DKQWJRAMVNGMM RATE, QNCECBQDPQD86 mm/hrHigh0-[facility] GroveComment on above:Performed By: #### [id number] ####[facility] [address], [place] [address] Abbi Choudhary M.D. 36D0 [id number] FOOT LEFT 3+ VIEWS (STANDARD)on 66-48-6337YA FOOT LEFT 3+ VIEWS (STANDARD)[facility] HospitalComment on above:Order Comment: Injury/Trauma or Illness?:Illness/OtherHow long have you had these symptoms (acute/chronic)?:AcuteReason for exam?:Circumferential sloughing of skin of first great toe, poorly controlled diabetic, concern for osteomyelitis, possible recent abscess that was drained at homeHistory of cancer?:uSurgeries, chemotherapy, or radiation?:pacemakerType of Exam?:InitialAdditional signs and symptoms?:naXR Foot - left 3 Viewson 01-12-2024 Forefoot soft tissue swelling without an acute osseous abnormality. If there is high clinical concern for osteomyelitis, recommend MRI which is more sensitive. 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 Distal fibularORIF, partially imaged. No aggressive osseous lesions or bony demineralization. Forefoot soft tissue swelling. 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 Distal fibularORIF, partially imaged. No aggressive osseous lesions or bony demineralization. Forefoot soft tissue swelling. IMPRESSION: Forefoot soft tissue swelling without an acute osseous abnormality. If there is high clinical concern for osteomyelitis, recommend MRI which is more sensitive. Workstation ID: [id number] [facility]bleRadiology Study observation (narrative)[facility]bleXR Foot - left 3 ViewsOrdered By: Vic Mac on 98-65-8683CmfoCjnddv Work Phone: ed Prov Noteon 78-36-8385ON [facility] NoteNormalSelect Specialty Hospital - Beech GroveXR FOOT LEFT 3+ VIEWS (STANDARD)on 40-40-6517GS FOOT LEFT 3+ VIEWS (STANDARD)[facility] HospitalComment on above:Order Comment: Injury/Trauma or Illness?:Illness/OtherHow long have you had these symptoms (acute/chronic)?:AcuteReason for exam?:1st toe painHistory of cancer?:uSurgeries, chemotherapy, or radiation?:pacemakerType of Exam?:InitialAdditional signs and symptoms?:1st toe painBASIC METABOLIC PANELon 07-19-5862Wwoyc gap [Moles/Vol]15 mmol/LQeexfa94-25UwdmzsSelect Specialty Hospital - Beech Grove Comment on above:Order Comment: [facility] has implemented the eGFR calculation approach that does not have a coefficient for race that conforms to the NKF-ASN Task Force Recommendations.Performed By: #### [id number] ####[facility] [address] [address] Abbi Choudhary M.D. 36D0 [id number] [Mass/Vol]9.0 mg/dLNormal8.4-10.2MRiley Hospital for Children on above:Order Comment: [facility] has implemented the eGFR calculation approach that does not have a coefficient for race that conforms to the NKF-ASN Task Force Recommendations.Performed By: #### [id number] ####[facility] [address] [place] [address] Abbi Choudhary M.D. [id number] [Moles/Vol]100 mmol/MTauouv43-076UxwnlmMargaret Mary Community Hospital on above:Order Comment: [facility] has implemented the eGFR calculation approach that does not have a coefficient for race that conforms to the NKF-ASN Task Force Recommendations.Performed By: #### [id number] ####[facility] [address] [place] [address] Abbi Choudhary M.D. [id number] [Mass/Vol]1.27 mg/dLHigh0.40-1.10[facility] on above:Order Comment: [facility] has implemented the eGFR calculation approach that does not have a coefficient for race that conforms to the NKF-ASN Task Force Recommendations.Performed By: #### [id number] ####[facility] [address] [place] [address] Abbi Choudhary M.D. [id number] mL/min/1.73 m2Low>=60 [facility] on above:Order Comment: [facility] has implemented the eGFR calculation approach that does not have a coefficient for race that conforms to the NKF-ASN Task Force Recommendations. Result Comment: Estimated GFR was calculated using the 2020 CKD-EPI creatinine equation.Performed By: #### [id number] ####[facility] [address] [place] [address] Abbi Choudhary M.D. [id number] [Mass/Vol]487 mg/dLOff scale high 65-99MRiley Hospital for Children on above:Order Comment: [facility] has implemented the eGFR calculation approach that does not have a coefficient for race that conforms to the NKF-ASN Task Force Recommendations.Performed By: #### [id number] ####[facility] [address] [place] [address] Abbi Choudhary M.D. [id number] (Bld) [Moles/Vol]23 mmol/L Qxpzmh97-73IjxymzMargaret Mary Community Hospital on above:Order Comment: [facility] has implemented the eGFR calculation approach that does not have a coefficient for race that conforms to the NKF-ASN Task Force Recommendations.Performed By: #### [id number] ####[facility] [address] [place] [address] Abbi Choudhary M.D. [id number] [Moles/Vol]5.0 mmol/L Normal3.5-5.1MRiley Hospital for Children on above:Order Comment: [facility] has implemented the eGFR calculation approach that does not have a coefficient for race that conforms to the NKF-ASN Task Force Recommendations.Performed By: #### [id number] ####[facility] [address] [place] [address] Abbi Choudhary M.D. [id number] [Moles/Vol]133 mmol/LLow 135-145[facility] on above:Order Comment: [facility] has implemented the eGFR calculation approach that does not have a coefficient for race that conforms to the NKF-ASN Task Force Recommendations.Performed By: #### [id number] ####[facility] [address], [place] [address] Abbi Choudhary M.D. [id number] nitrogen [Mass/Vol]30 mg/dLHigh 8-25[facility] on above:Order Comment: [facility] has implemented the eGFR calculation approach that does not have a coefficient for race that conforms to the NKF-ASN Task Force Recommendations. Performed By: #### [id number] ####[facility] [address] [place] [address] Abbi Choudhary M.D. [id number] nitrogen/Creatinine [Mass ratio]23.6 mg/mgHigh 10.0-20.0[facility] HospitalComment on above:Order Comment: [facility] has implemented the eGFR calculation approach that does not have a coefficient for race that conforms to the NKF-ASN Task Force Recommendations.Performed By: #### [id number] ####[facility] [address] [place] [address] Abbi Choudhary M.D. [id number] WITH AUTO DIFFERENTIALon 87-15-7264AKUV NRBC0.0 %[facility] HospitalComment on above:Performed By: #### [id number] ####[facility] [address] [place] [address] Abbi Choudhary M.D. [id number] NRBC ABS COUNT0.00 K/mcLNormal0.00-0.00[facility] Beech GroveComment on above:Performed By: #### [id number] ####[facility] [address] [place] [address] Abbi Choudhary M.D. [id number] ABSOLUTE COUNT 0.08 K/mcLNormal0.00-0.30[facility] Bee[facility] GroveComment on above:Performed By: #### [id number] ####[facility] [address] [place] [address] Abbi Choudhary M.D. [id number]/100 WBC (Bld)0.8 %[facility] HospitalComment on above:Performed By: #### [id number] ####[facility] [address] [place] [address] Abbi Choudhary M.D. [id number] (Bld) [#/Vol]0.26 10*3/uLNormal 0.00-0.50[facility] HospitalComment on above:Performed By: #### [id number] ####[facility] [address] [place] [address] Abbi Choudhary M.D. 36 [id number]/100 WBC (Bld)2.7 %NormalSelect Specialty Hospital - Beech GroveComment on above:Performed By: #### [id number] ####[facility] [address] [place] [address] Abbi Choudhary M.D. [id number] distribution width (RBC) [Ratio] 12.6 %Eqcawq20.6-14.8[facility] Bee[facility] GroveComment on above:Performed By: #### [id number] ####[facility] [address] [place] [address] Abbi Choudhary M.D. [id number] (Bld) [Volume fraction]33.1 %Low36.0-46.0[facility] - Beech GroveComment on above:Performed By: #### [id number] ####[facility] [address] [place] [address] Abbi Choudhary M.D. [id number] (Bld) [Mass/Vol]11.2 g/dLLow12.0-16.0[facility] Beech GroveComment on above:Performed By: #### [id number] ####[facility] [address] [place] [address] Abbi Choudhary M.D. [id number] ABSOLUTE0.05 K/mcLNormal0.00-0.30[facility] Comment on above:Performed By: #### [id number] ####[facility] [address] [place] [address] Abbi Choudhary M.D. [id number] PERCENT0.50 %[facility] HospitalComment on above:Result Comment: The IG parameter is the percentage of metamyelocytes, myelocytes and promyelocytes.An immature granulocyte count (IG) of 1% or more suggests the possibility of infection, an IG countof 3% is very likely related to an infection.Performed By: #### [id number] ####[facility] [address] [place] [address] Abbi Choudhary M.D. 36 [id number] (Bld) [#/Vol]2.06 10*3/uLNormal0.90-4.00[facility] HospitalComment on above:Performed By: #### [id number] ####[facility] [address] [place] [address] Abbi Choudhary M.D. [id number]/100 WBC (Bld) 21.3 %NormalUnion Hospital HospitalComment on above:Performed By: #### [id number] ####[facility] [address] [place] [address] Abbi Choudhary M.D. 36 [id number] (RBC) [Entitic mass]30.5 qdUpkvaf52.0-34.0[facility] Comment on above:Performed By: #### [id number] ####[facility] [address] [place] [address] Abbi Choudhary M.D. [id number] (RBC) [Entitic vol]90.2 fLNormal 80.0-100.0[facility] Bee[facility] GroveComment on above:Performed By: #### [id number] ####[facility] [address] [place] [address] Abbi Choudhary M.D. 36 [id number] CORPUSCULAR HEMOGLOBIN CONC33.8 g/uMUeapyv46.0-37.0[facility] Bee[facility] GroveComment on above:Performed By: #### [id number] ####[facility] [address] [place] [address] Abbi Choudhary M.D. [id number] (Bld) [#/Vol] 0.54 10*3/uLNormal0.30-0.90[facility] Bee[facility] GroveComment on above:Performed By: #### [id number] ####[facility] [address] [place] [address] Abbi Choudhary M.D. [id number]/100 WBC (Bld)5.6 %NormalUnion Hospital HospitalComment on above:Performed By: #### [id number] ####[facility] [address] [place] [address] Abbi Choudhary M.D. [id number] ABSOLUTE COUNT6.67 K/mcLNormal 1.70-7.00[facility] Bee[facility] GroveComment on above:Performed By: #### [id number] ####[facility] [address], [place] [address] Abbi Choudhary M.D. 36 [id number]/100 WBC (Bld)69.1 %NormalSelect Specialty Hospital - Beech GroveComment on above:Performed By: #### [id number] ####[facility] [address] [place] [address] Abbi Choudhary M.D. [id number] mean volume (Bld) [Entitic vol]8.9 fLLow9.4-12.4[facility] Bee[facility] GroveComment on above:Performed By: #### [id number] ####[facility] [address] [place] [address] Abbi Choudhary M.D. 36 [id number] (Bld) [#/Vol]271 10*3/wOOindqu741-474LjvqicSelect Specialty Hospital - Beech Grove Comment on above:Performed By: #### [id number] ####[facility] [address] [place] [address] Abbi Choudhary M.D. [id number] (Bld) [#/Vol]3.67 10*6/uLLow 4.00-5.20[facility] Bee[facility] GroveComment on above:Performed By: #### [id number] ####[facility] [address] [place] [address] Abbi Choudhary M.D. 36 [id number] (Bld) [#/Vol]9.66 10*3/uLNormal4.50-11.00[facility] Comment on above:Performed By: #### [id number] ####[facility] [address] [place] [address] Abbi Choudhary M.D. [id number]-NEXRO, QUANTITATIVEon 12-07-2023 D-DIMER QUANTITATIVE0.42 mcg/mL FEUNormal0.27-0.49[facility] - Beech GroveComment on above:Order Comment: A D-dimer concentration of <0.5 micrograms per milliliter FEU is considered a lowprobability for pulmonary embolus (PE) and deep venous thrombosis (DVT). Results of this test should always be interpreted in conjunction with the patient's medical history,clinical presentation, and other findings. Clinical diagnosis should not be based on the results of the D- dimer alone.Performed By: #### [id number] #### LAB [address] [place] [address] Abbi Choudhary M.D. [id number] Prov Noteon 25-40-7404CJ Prov NoteNormalSelect Specialty Hospital - Beech GroveNT PRO BNPon 60-30-3734Ykznfljjucu peptide B (Bld) [Mass/Vol]124 pg/mLNormal0-300[facility] - Beech GroveComment on above: Order Comment: Pride Study Cut-offsRule In:< /= 50 Years >450 pg/mL51 Years - 75 Years >900 pg/mL76 Years - 99 Years >1800 pg/mLRule Out:All patients <300 pg/mL Performed By: #### [id number] ####[facility] [address] [place] [address] Abbi Choudhary M.D. [id number] GLUCOSE - RALSon 15-35-4204Ecimppp [Mass/Vol]339 mg/uPTkxw47-10Aanasm86 Willis StreetComment on above:Performed By: #### [id number] ####[facility] [address] [place] [address] Abib Choudhary M.D. 36D0 453373Hunfzbw [Mass/Vol]454 mg/dLOff scale [address] Comment on above:Order Comment: Critical result acted upon time of test. Test performed at bedside.Performed By: #### [id number] ####[facility] [address] [place] [address] Abbi Choudhary M.D. [id number] 41-64-9474QKAGXQFL T DELTA CHANGE INTERPRETATIONDelta troponin requires at least 3 hours between collections.[facility] HospitalComment on above:Performed By: #### [id number] ####[facility] [address], [place] [address] Abbi Choudhary M.D. [id number] T NG/L17 ng/LOff scale high<=14[facility] - Beech GroveComment on above:Performed By: #### [id number] ####[facility] [address], [place] [address] Abbi Choudhary M.D. [id number] TROPONIN T NG/L18 ng/LOff scale high<=14[facility] - Beech GroveComment on above:Performed By: #### [id number] ####[facility] [address], [place] [address] Abbi Choudhary M.D. [id number] TROPONIN T INTERPRETATIONPossible acute cardiac injury.[facility] HospitalComment on above:Performed By: #### [id number] ####[facility] [address], [place] [address] Abbi Choudhary M.D. [id number] CHEST PA/APon 46-53-0295UM CHEST PA/APNormalSelect Specialty Hospital - Beech GroveComment on above:Order Comment: Injury/Trauma or Illness?:Illness/OtherHow long have you had these symptoms (acute/chronic)?:AcuteReason for exam?:cpHistory of cancer?:uSurgeries, chemotherapy, or radiation?:pacemakerType of Exam?:InitialAdditional signs and symptoms?:Pt arrived via ems from home with c/o 7/10 mid sternal chest pain that started 2 hours ago.COVID-19, Molecularon 21-80-9679IQGA-CoV-2 (COVID-19) RdRp gene EBONIE+probe Ql (Resp)Not detectedNot DetectedOhioHealthComment on above: Testing was performed using the [employer] ID NOW COVID-19 assay on the ID NOW platform. This test has not been approved for use in asymptomatic patients and its performance in this patient population has not been evaluated. Negative results do not rule out the presence of SARS-CoV-2/COVID-19. POC Influenza Aon 35-86-3372VHQRB Ag Ql (Nph)NegativeNegativeOhioHealth St. Francis Hospital Influenza Bon 71-74-6640YLEUJ Ag Ql (Nph)NegativeNegative NyebTgbcloJgfvLsiihlHAAI-TeT-2 (COVID-19) RdRp gene EBONIE+probe Ql (Resp)on 42-59-1660Oxhsifzlizllfm and review of laboratory resultsNormalOSycamore Medical CenterEye - left US 2Don 53-84-6609BCVDetwiler Memorial HospitalRadiology Study observation (narrative)[facility] Medical CenterFUNDUS PHOTOGRAPHY-OUon 03-91-6299Gdsbp Eye Clear. Disc findings include normal observations. Vessel findings include A/V crossing changes, arteriole narrowing. Macula findings include microaneurysms, dot/blot hemorrhages. Cotton Wool Spots, Dot/Blot Hemorrhages. Interval change is baseline. Left Eye Vitreous Hemorrhage. Interval change is baseline.RADIOLOGYOSU Adena Regional Medical CenterRadiology Study observation (narrative)OSDetwiler Memorial HospitalNo Panel Informationon 22-47-5542SABTJWSEON: Soft tissue swelling. No acute fracture evident. Healed, internally fixated distal fibular fracture with sequela of remote collateral ligamentous trauma at the ankle. RADIOLOGYEXAM: XR FOOT LEFT 3+ VIEWS, XR ANKLE LEFT 3+ VIEWS, XR TIBIA AND FIBULA LEFT 2 VIEWS, 08/26/2023 18:44 PM (accession [id number]), 08/26/2023 18:46 PM (accession [id number]), 08/26/2023 18:46 PM (accession [id number]) COMPARISON: Ankle radiographs dated May 16, 2008 [...] the interosseous membrane. Left knee appears anatomic. RADIOLOGYKwaku Jay DO - 08/26/2023 EXAM: XR FOOT LEFT 3+ VIEWS, XR ANKLE LEFT 3+ VIEWS, XR TIBIA AND FIBULA LEFT 2 VIEWS, 08/26/2023 18:44 PM (accession [id number]), 08/26/2023 18:46 PM (accession [id number]), 08/26/2023 18:46 PM (accession [id number]) COMPARISON: Ankle radiographs dated May 16, 2008 [...] remote collateral ligamentous trauma at the ankle. [facility] HospitalNo Panel InformationOrdered By: Kwaku Jay on 37-84-4763ZHUKnox Community Hospital Work Phone: XR Ankle - left 3 Viewson 95-71-5507Wtuzweyvz Study observation (narrative)[facility] HospitalXR Foot - left 3 Viewson 46-68-8181Mysrhsqsb Study observation (narrative)[facility] HospitalXR Tibia and Fibula - left Viewson 46-63-1762Gnauenchs Study observation (narrative)[facility] HospitalCBC panel Auto (Bld)on 29-18-4949Flqiovvetfm distribution width (RBC) [Entitic vol]13.2 %11.6 - 14.8 %OhioHealthHematocrit (Bld) [Volume fraction]32.6 %Low36.0 - 46.0 %OhioHealthHemoglobin (Bld) [Mass/Vol]10.5 g/dLLow12.0 - 16.0 g/dLOhioHealthInterpretation and review of laboratory resultsAbnormalOhioHealthMCH (RBC) [Entitic mass]30.1 pg26.0 - 34.0 pgOhioHealthMCHC (RBC) [Mass/Vol]32.2 g/dL31.0 - 37.0 g/dLOhioHealthMCV (RBC) [Entitic vol]93.4 fL80.0 - 100.0 fLOhioHealthNucleated RBC (Bld) [#/Vol]0.00 10*3/uLOhioHealthNucleated RBC/100 WBC (Bld) [Ratio]0.0 %OhioHealthPlatelet mean volume (Bld) [Entitic vol]8.7 fLLow9.4 - 12.4 fLOhioHealthPlatelets (Bld) [#/Vol]296 10*3/uLOhioHealthRBC (Bld) [#/Vol]3.49 10*6/uLLowOhioHealthWBC (Bld) [#/Vol]7.46 10*3/uLOhioHealthOhioHealthGlucose (Bld) [Mass/Vol]on 03-30-2023 Glucose [Mass/Vol]232 mg/pUQsfh82 - 99 mg/dLOhioHealthInterpretation and review of laboratory resultsAbnormalOhioHealthOhioHealthGlucose [Mass/Vol]306 mg/dLHigh 65 - 99 mg/dLOhioHealthInterpretation and review of laboratory resultsAbnormal [facility] PrebleOhioHealthRenal function 1999 panelon 37-22-7314Yxxlecz [Mass/Vol]3.2 g/dL3.2 - 5.2 g/dLOhioHealthAnion gap [Moles/Vol]10 mmol/L10 - 20 mmol/L OhioHealthCalcium [Mass/Vol]8.7 mg/dL8.4 - 10.2 mg/dLOhioHealthChloride [Moles/Vol]106 mmol/L98 - 108 mmol/LOhioHealthCreatinine [Mass/Vol]1.29 mg/dL High0.40 - 1.10 mg/dLOhioHealthGFR/1.73 sq M.predicted CKD-EPI (S/P/Bld) [Vol rate/Area]52Low- PINFOhioHealthComment on above:Estimated GFR was calculated using the 2020 CKD-EPI creatinine equation.Glucose [Mass/Vol]338 mg/xRVosi97 - 99 mg/dLOhioHealthHCO3 [Moles/Vol]25 mmol/L21 - 32 mmol/LOhioHealth Interpretation and review of laboratory resultsAbnormalOhioHealthPhosphate [Mass/Vol]3.7 mg/dL2.7 - 4.5 mg/dLOhioHealthPotassium [Moles/Vol]4.0 mmol/L3.5 - 5.1 mmol/LOhioHealthSodium [Moles/Vol]137 mmol/L135 - 145 mmol/LOhioHealthUrea nitrogen [Mass/Vol]22 mg/dL8 - 25 mg/dLOhioHealthUrea nitrogen/Creatinine [Mass ratio]17.1 mg/mg10.0 - 20.0OhioHealthOhioHealth [facility] has implemented the eGFR calculation approach that does not have a coefficient for race that conforms to the NKF-ASN Task Force Recommendations.[facility] metabolic 1999 panelon 31-39-3151Yqcjt gap [Moles/Vol]13 mmol/L 10 - 20 mmol/LOhioHealthCalcium [Mass/Vol]9.2 mg/dL8.4 - 10.2 mg/dLOhioHealth Chloride [Moles/Vol]106 mmol/L98 - 108 mmol/LOhioHealthCreatinine [Mass/Vol]1.07 mg/dL0.40 - 1.10 mg/dLOhioHealthGFR/1.73 sq M.predicted CKD-EPI (S/P/Bld) [Vol rate/Area]65- PINFOhioHealthComment on above:Estimated GFR was calculated using the 2020 CKD-EPI creatinine equation.Glucose [Mass/Vol]122 mg/hIImnr59 - 99 mg/dLOhioHealthHCO3 [Moles/Vol]25 mmol/L21 - 32 mmol/LOhioHealthInterpretation and review of laboratory resultsAbnormalOhioHealthPotassium [Moles/Vol]3.9 mmol/L3.5 - 5.1 mmol/LOhioHealthSodium [Moles/Vol]140 mmol/L135 - 145 mmol/L OhioHealthUrea nitrogen [Mass/Vol]15 mg/dL8 - 25 mg/dLOhioHealthUrea nitrogen/Creatinine [Mass ratio]14.0 mg/mg10.0 - 20.0[facility] has implemented the eGFR calculation approach that does not have a coefficient for race that conforms to the NKF-ASN Task Force Recommendations.[facility] Auto Differentialon 48-84-8328Kmdfdwiqw (Bld) [#/Vol]0.06 10*3/uLOhioHealthBasophils/100 WBC (Bld)0.6 %[facility] Eosinophils (Bld) [#/Vol]0.14 10*3/uLOhioHealthEosinophils/100 WBC (Bld)1.5 % [facility] PrebleErythrocyte distribution width (RBC) [Entitic vol]13.1 %11.6 - 14.8 % [facility] PrebleHematocrit (Bld) [Volume fraction]35.1 %Low36.0 - 46.0 %[facility] Hemoglobin (Bld) [Mass/Vol]11.9 g/dLLow12.0 - 16.0 g/dLLouisianaHealthImmature granulocytes (Bld) [#/Vol]0.05 10*3/uLOhioHealthImmature granulocytes/100 WBC (Bld)0.50 %OhioHealthComment on above:The IG parameter is the percentage of metamyelocytes, myelocytes and promyelocytes. An immature granulocyte count (IG) of 1% or more suggests the possibility of infection, an IG count of 3% is very likely related to an infection.Interpretation and review of laboratory results AbnormalOhioHealthLymphocytes (Bld) [#/Vol]1.49 10*3/uLOhioHealthLymphocytes/100 WBC (Bld)15.8 %OhioHealthMCH (RBC) [Entitic mass]30.5 pg26.0 - 34.0 pg [facility] HospitalHC (RBC) [Mass/Vol]33.9 g/dL31.0 - 37.0 g/dLOhHealthMCV (RBC) [Entitic vol]90.0 fL80.0 - 100.0 fLOhioHealthMonocytes (Bld) [#/Vol]0.49 10*3/uL OhioHealthMonocytes/100 WBC (Bld)5.2 %OhioHealthNeutrophils (Bld) [#/Vol]7.21 10*3/uLHighOhioHealthNeutrophils/100 WBC (Bld)76.4 %OhioHealthNucleated RBC (Bld) [#/Vol]0.00 10*3/uLOhioHealthNucleated RBC/100 WBC (Bld) [Ratio]0.0 % OhioHealthPlatelet mean volume (Bld) [Entitic vol]8.7 fLLow9.4 - 12.4 fL OhioHealthPlatelets (Bld) [#/Vol]306 10*3/uLOhioHealthRBC (Bld) [#/Vol]3.90 10*6/uLLowOhioHealthWBC (Bld) [#/Vol]9.44 10*3/uLOhioHealthOhioHealthCT Chest Abdomen Pelvis Without Contraston 03-29-2023 1. Normal caliber of the aorta of without evidence of aneurysm. 2. No acute CT findings of the chest, abdomen or pelvis. 3. Chronic findings as detailed above. Workstation ID: [id number] RISEXAMINATION: CT CHEST ABDOMEN PELVIS WITHOUT CONTRAST HISTORY: [...] decompressed. No small bowel obstruction. Appendix is normal.Colon is normal. No focal or diffuse bowel wall thickening or inflammatory stranding. Lymph nodes: No lymphadenopathy. Peritoneum: No ascites or free air. No other fluid collection. Vessels: Aorta is normal in caliber throughout. Peripheral vascular calcifications. MUSCULOSKELETAL: Abdominal wall: Postsurgical changes of the ventral abdominal wall. T/L Spine: No acute osseous abnormality. Mild multilevel degenerative changes. Pelvis: No acute osseous abnormality. Indra Terrell MD - 03/29/2023 EXAMINATION: CT CHEST ABDOMEN [...] decompressed. No small bowel obstruction. Appendix is normal.Colon is normal. No focal or diffuse bowel [...] detailed above. Workstation ID: [id number] [facility] ([facility]ative)[facility] Abdomen Pelvis Without ContrastOrdered By: Indra Serna on 16-05-4440RsaeZvccoa Work Phone: EKGon 67-34-5538EbxoLdwlhtNfwcoku (Bld) [Mass/Vol]on 33-24-7641Kdljhym [Mass/Vol]260 mg/kTZtzh96 - 99 mg/dLOhioHealthInterpretation and review of laboratory resultsAbnormalOhioHealthOhioHealthGlucose [Mass/Vol]88 mg/dL65 - 99 mg/dLOhioHealthInterpretation and review of laboratory results FjlykjSmqfWgvejqYjruFghxcwApN4y (Bld) [Mass fraction]on 32-74-7969Ujbskgh glucose Estimated from glycated hemoglobin (Bld) [Mass/Vol]235 mg/cRItsa98 - 114 mg/dLOhioHealthInterpretation and review of laboratory resultsAbnormal OhioHealthOhioHealthHemoglobin A1con 61-71-9315AvU7b (Bld) [Mass fraction]9.8 % High4.2 - 5.6 %[facility]bleHepatic function 2000 panelon 05-65-3561Kspvrlx [Mass/Vol]3.8 g/dL3.2 - 5.2 g/dLOhioHealthALP [Catalytic activity/Vol]108 U/L40 - 150 U/LOhioHealthALT [Catalytic activity/Vol]7 U/L0-35 U/LOhioHealthAST [Catalytic activity/Vol]8 U/L0-35 U/LOhioHealthBilirubin [Mass/Vol]0.3 mg/dL0.0 - 1.3 mg/dLOhioHealthBilirubin.conjugated [Mass/Vol]mg/dL0.0 - 0.4 mg/dL OhioHealthProtein [Mass/Vol]6.8 g/dL6.0 - 8.0 g/dLOhioHealthLipaseon 03-29-2023 Lipase [Catalytic activity/Vol]37 U/L15 - 65 U/LOhioHealthNo Panel Informationon 12-42-1231Oeqcw TubeHold for add-ons.OhioMercy Health St. Rita'S Medical CenterComment on above:Auto resulted. OhioHealthInterpretation and review of laboratory resultsNormalOhioHealth [facility] DL <= 0.005 mIU/L Qnon 21-20-3303Fkzsjlfzibwiwx and review of laboratory resultsNormalOAv[facility] Qn2.94 m[IU]/LOhioHealthOhioHealthTroponin Ordered By: Shy Chou on 50-04-2053Vougs Difference Troponin T-1 ng/L< = - /+ 7 changeOhioHealthInterp Troponin T Delta ChangeProbable non-acute cardiac injury or late presentation of acute injury.OhioHealthTroponin T14 ng/LNINF - 14 ng/LOhioHealthOhioHealthTroponinOrdered By: Charisse Damon on 03-29-2023 Interpretation and review of laboratory resultsAbnormalOhioHealthTroponin T15 ng/LCritically highNINF - 14 ng/LOhioHealthTroponin T InterpretationPossible acute cardiac injury.[facility] Chest 1 Viewon 03-29-2023 Low lung volumes and small effusion suspected. [email or web address] Workstation ID: [id number] RISEXAMINATION: XR CHEST PA/AP 03/29/2023 10:34 am HISTORY: [...] There is a transvenous defibrillator present. Laura Cotter MD - 03/29/2023 EXAMINATION: XR CHEST PA/AP [...] Low lung volumes and small effusion suspected. [email or web address] Workstation ID: [id number] [facility]Rad[facility] observation (narrative)[facility]XR Chest 1 View Ordered By: Laura Hodge on 67-80-3211AsanUffidh Work Phone: Basic metabolic 2000 panelon 77-86-0142Kctvo gap [Moles/Vol]14 mmol/L10 - 20 mmol/LOhioHealthCalcium [Mass/Vol]7.8 mg/dLLow8.4 - 10.2 mg/dLOhioHealthChloride [Moles/Vol]110 mmol/LHigh98 - 108 mmol/LOhioHealth Creatinine [Mass/Vol]1.19 mg/dLHigh0.40 - 1.10 mg/dLOhioHealthGFR/1.73 sq M.predicted CKD-EPI (S/P/Bld) [Vol rate/Area]58Low- PINFOhioHealthComment on above:Estimated GFR was calculated using the 2020 CKD-EPI creatinine equation. Glucose [Mass/Vol]227 mg/yWDyah15 - 99 mg/dLOhioHealthHCO3 [Moles/Vol]20 mmol/L Low21 - 32 mmol/LOhioHealthInterpretation and review of laboratory results AbnormalOhioHealthPotassium [Moles/Vol]4.6 mmol/L3.5 - 5.1 mmol/LOhioHealth Sodium [Moles/Vol]139 mmol/L135 - 145 mmol/LOhioHealthUrea nitrogen [Mass/Vol]27 mg/dLHigh8 - 25 mg/dLOhioHealthUrea nitrogen/Creatinine [Mass ratio]22.7 mg/mg High10.0 - 20.0OhioHealthOhioHealth [facility] has implemented the eGFR calculation approach that does not have a coefficient for race that conforms to the NKF-ASN Task Force Recommendations.OhioHealthOhioHealthGlucose (Bld) [Mass/Vol]on 73-36-6736Lbfkhrz [Mass/Vol]187 mg/sWMbjz82 - 99 mg/dLOhioHealth Interpretation and review of laboratory resultsAbnormAdena Health SystemioMercy Health St. [facility] Glucose [Mass/Vol]257 mg/lBPjsg15 - 99 mg/dLOhioHealthInterpretation and review of laboratory resultsAbnormAdena Health SystemioAtrium Health metabolic 1999 panel Ordered By: Jayna Hart on 57-61-9772Dyznb gap [Moles/Vol]15 mmol/L10 - 20 mmol/LOhioHealthCalcium [Mass/Vol]8.6 mg/dL8.4 - 10.2 mg/dLOhioHealthChloride [Moles/Vol]107 mmol/L98 - 108 mmol/LOhioHealthCreatinine [Mass/Vol]2.04 mg/dL High0.40 - 1.10 mg/dLOhioHealthGFR/1.73 sq M.predicted CKD-EPI (S/P/Bld) [Vol rate/Area]30Low- PINFOhioHealthComment on above:Estimated GFR was calculated using the 2020 CKD-EPI creatinine equation.Glucose [Mass/Vol]62 mg/dLLow65 - 99 mg/dLOhioHealthHCO3 [Moles/Vol]20 mmol/LLow21 - 32 mmol/LOhioHealth Interpretation and review of laboratory resultsAbnormalOhioHealthPotassium [Moles/Vol]4.3 mmol/L3.5 - 5.1 mmol/LOhioHealthSodium [Moles/Vol]138 mmol/L135 - 145 mmol/LOhioHealthUrea nitrogen [Mass/Vol]23 mg/dL8 - 25 mg/dLOhioHealthUrea nitrogen/Creatinine [Mass ratio]11.3 mg/mg10.0 - 20.0[facility] has implemented the eGFR calculation approach that does not have a coefficient for race that conforms to the NKF-ASN Task Force Recommendations.[facility] DaytonCBC panel Auto (Bld)on 61-11-6829Sbbnyeoclqk distribution width (RBC) [Entitic vol]13.7 %11.6 - 14.8 %OhioHealthHematocrit (Bld) [Volume fraction]33.9 %Low36.0 - 46.0 %OhioHealthHemoglobin (Bld) [Mass/Vol]11.4 g/dLLow12.0 - 16.0 g/dLOhioHealthInterpretation and review of laboratory resultsAbnormalOhioHealthMCH (RBC) [Entitic mass]30.2 pg26.0 - 34.0 pgOhioHealthMCHC (RBC) [Mass/Vol]33.6 g/dL31.0 - 37.0 g/dLOhioHealthMCV (RBC) [Entitic vol]89.7 fL80.0 - 100.0 fLOhioHealthNucleated RBC (Bld) [#/Vol]0.00 10*3/uLOhioHealthNucleated RBC/100 WBC (Bld) [Ratio]0.0 %OhioHealthPlatelet mean volume (Bld) [Entitic vol]9.4 fL9.4 - 12.4 fLOhioHealthPlatelets (Bld) [#/Vol] 304 10*3/uLOhioHealthRBC (Bld) [#/Vol]3.78 10*6/uLLowOhioHealthWBC (Bld) [#/Vol] 8.21 10*3/uLOhioHealthOhioHealthEchocardiogram completeOrdered By: Yan Jones on 94-53-1711Tpvzvq valve area3.88228gzVfdnFxapzc Work Phone: AV mean gradient3.49202vvVuRbhgLbagvx Work Phone: AV peak gradient5.14591azKiHricSifbog Work Phone: [phone] %[facility] Work Phone: [employer] Work Phone: Echocardiogram completeon 04-84-6870Ixsslvb Info Name: ADDIE ORGAN Age: 47 years : 1975 Gender: Female Ht: 157 cm Wt: 114 kg BSA: 2.30 m2 BP: 82 / 62 mmHg Technical Quality: Fair Exam Date: 02/18/2023 6:42 PM Patient Status: Inpatient Freezer Person: Babs Barnes RDCS Exam Type: ECHOCARDIOGRAM COMPLETE Study Info Indications - Chest pain - Evaluate LV function Attending Physician: [facility] ALICIA Referring Physician: [id number] Dinh; [id number] BMI: 45.91 kg/m2 Summary 1. Normal LV [...] Peak Gradient 3 mmHg PV Regurgitation Doppler PA Peak Velocity 111.88 cm/s PA Peak Gradient 5 mmHg Mitral Valve Name Value Normal MV Doppler (more content not included)...CueI SYNAPSE CVCooke, Yan Leal MD - 02/19/2023 Patient Info Name: ADDIE ORGAN Age: 47 years : 1975 Gender: Female Ht: 157 cm Wt: 114 kg BSA: 2.30 m2 BP: 82 / 62 mmHg Technical Quality: Fair Exam Date: 02/18/2023 6:42 PM Patient Status: Inpatient Freezer Person: Babs Barnes RDCS Exam Type: ECHOCARDIOGRAM COMPLETE Study Info Indications - Chest pain - Evaluate LV function Attending Physician: [facility], ALICIA Referring Physician: MATTHIAS Noble; [phone] BMI: 45.91 kg/m2 Summary 1. Normal LV [...] Peak Gradient 3 mmHg PV Regurgitation Doppler PA Peak Velocity 111.88 cm/s PA Peak Gradient 5 mmHg Mitral Valve Name Value Normal MV Doppler MV Decel [place] 375 cm/s2 MV PHT 77 ms MV Area (PHT) 2.9 cm2 4.0-5.0 MV Diastolic Function MV E Peak Velocity 0.99 m/s MV A Peak Velocity 0.91 m/s MV E/A 1.1 MV Decel Time 265 ms MV Annular TDI MV Septal e' Velocity 8.2 cm/s >=8.0 MV E/e' (Septal) 12.1 <=8.0 MV Lateral e' Velo (more content not included)...OhioHealthGlucose (Bld) [Mass/Vol]on 30-76-9055Mdigyrm [Mass/Vol]332 mg/aKOzfc19 - 99 mg/dLOhioHealth Interpretation and review of laboratory resultsAbnormalOLouis Stokes Cleveland VA Medical CenterealthOhioHealth Glucose [Mass/Vol]267 mg/tCWfeh38 - 99 mg/dLOhioHealthInterpretation and review of laboratory resultsAbnormalOSalem City HospitalioHealthGlucose [Mass/Vol]162 mg/dLHigh 65 - 99 mg/dLOhioHealthInterpretation and review of laboratory resultsAbnormal OhioMercy Health St. Rita'S Medical CenterOhioHealthGlucose [Mass/Vol]63 mg/dLLow65 - 99 mg/dLOhioHealth Interpretation and review of laboratory resultsAbnormalOLouis Stokes Cleveland VA Medical CenterealthOhioHealth Glucose [Mass/Vol]80 mg/dL65 - 99 mg/dLOhioHealthInterpretation and review of laboratory resultsNormalOhiMDealthOhioHealthLactate [Moles/Vol]on 02-19-2023 Interpretation and review of laboratory resultsNormalOLouis Stokes Cleveland VA Medical CenterealNorwalk Memorial HospitalioHealthLactic Acid, Plasmaon 02-40-6788Beprzuv [Moles/Vol]1.7 mmol/L0.6 - 2.0 mmol/LOhioHealth Troponin x 2 (Now and Repeat in 3 hours)on 75-71-0526Wvfvvbwrwrdwwx and review of laboratory resultsAbnormalOhioHealthTroponin T33 ng/LCritically highNINF - 14 ng/LOhioHealthTroponin T InterpretationPossible acute cardiac injury.[facility] metabolic 2000 panelon 79-00-2973Ckujy gap [Moles/Vol]15 mmol/L 10 - 20 mmol/LOhioHealthCalcium [Mass/Vol]8.9 mg/dL8.4 - 10.2 mg/dLOhioHealth Chloride [Moles/Vol]105 mmol/L98 - 108 mmol/LOhioHealthCreatinine [Mass/Vol]0.99 mg/dL0.40 - 1.10 mg/dLOhioHealthGFR/1.73 sq M.predicted CKD-EPI (S/P/Bld) [Vol rate/Area]72- PINFOhioHealthComment on above:Estimated GFR was calculated using the 2020 CKD-EPI creatinine equation.Glucose [Mass/Vol]144 mg/fDSfmq28 - 99 mg/dLOhioHealthHCO3 [Moles/Vol]23 mmol/L21 - 32 mmol/LOhioHealthInterpretation and review of laboratory resultsAbnormalOhioHealthPotassium [Moles/Vol]3.8 mmol/L3.5 - 5.1 mmol/LOhioHealthSodium [Moles/Vol]139 mmol/L135 - 145 mmol/L OhioHealthUrea nitrogen [Mass/Vol]15 mg/dL8 - 25 mg/dLOhioHealthUrea nitrogen/Creatinine [Mass ratio]15.2 mg/mg10.0 - 20.0[facility] has implemented the eGFR calculation approach that does not have a coefficient for race that conforms to the NKF-ASN Task Force Recommendations.[facility] Auto Differentialon 24-27-8739Tbflwyahr (Bld) [#/Vol]0.05 10*3/uLOhioHealthBasophils/100 WBC (Bld)0.6 %[facility] Eosinophils (Bld) [#/Vol]0.21 10*3/uLOhioHealthEosinophils/100 WBC (Bld)2.4 % [facility] PrebleErythrocyte distribution width (RBC) [Entitic vol]13.0 %11.6 - 14.8 % [facility]bleHematocrit (Bld) [Volume fraction]36.9 %36.0 - 46.0 %[facility] Hemoglobin (Bld) [Mass/Vol]12.3 g/dL12.0 - 16.0 g/dLKettering Health PrebleImmature granulocytes (Bld) [#/Vol]0.04 10*3/uLOhioHealthImmature granulocytes/100 WBC (Bld)0.50 %[facility] PrebleComment on above:The IG parameter is the percentage of metamyelocytes, myelocytes and promyelocytes. An immature granulocyte count (IG) of 1% or more suggests the possibility of infection, an IG count of 3% is very likely related to an infection.Lymphocytes (Bld) [#/Vol]2.80 10*3/uLOhioHealth Lymphocytes/100 WBC (Bld)32.6 %[facility] PrebleMCH (RBC) [Entitic mass]29.4 pg26.0 - 34.0 pgOhioHealthMCHC (RBC) [Mass/Vol]33.3 g/dL31.0 - 37.0 g/dLOhioHealthMCV (RBC) [Entitic vol]88.1 fL80.0 - 100.0 fLOhioHealthMonocytes (Bld) [#/Vol]0.45 10*3/uLOhioHealthMonocytes/100 WBC (Bld)5.2 %OhioHealthNeutrophils (Bld) [#/Vol] 5.03 10*3/uLOhioHealthNeutrophils/100 WBC (Bld)58.7 %OhioHealthNucleated RBC (Bld) [#/Vol]0.00 10*3/uLOhioHealthNucleated RBC/100 WBC (Bld) [Ratio]0.0 % OhioHealthPlatelet mean volume (Bld) [Entitic vol]9.5 fL9.4 - 12.4 fLOhioHealth Platelets (Bld) [#/Vol]312 10*3/uLOhioHealthRBC (Bld) [#/Vol]4.19 10*6/uL OhioHealthWBC (Bld) [#/Vol]8.58 10*3/uLOhioHealthOhioHealthEKGon 02-18-2023 OhioHealthEchocardiogram completeon 51-37-6798Pmcudpvjz Study observation (narrative)OhioHealthGlucose (Bld) [Mass/Vol]on 43-04-8489Egpiqhq [Mass/Vol]204 mg/nPSfvx75 - 99 mg/dLOhioHealthInterpretation and review of laboratory results AbnormalOhioHealthOhioHealthGlucose [Mass/Vol]401 mg/dLCritically high65 - 99 mg/dLOhioHealthInterpretation and review of laboratory resultsAbnormalOhioHealth Critical result acted upon time of test. Test performed at bedside.[facility] OhioHealthGlucose [Mass/Vol]336 mg/dJHpul53 - 99 mg/dLOhioHealthInterpretation and review of laboratory resultsAbnormalOhioHealthOhioHealthGlucose [Mass/Vol] 118 mg/jVZfvv21 - 99 mg/dLOhioHealthInterpretation and review of laboratory resultsAbnormalOhioHealthOhioHealthGlucose [Mass/Vol]183 mg/cAVxrq19 - 99 mg/dL [facility] PrebleInterpretation and review of laboratory resultsAbnormalOhioHealth [facility] Myocardial Perfusion Multiple SPECTOrdered By: Inessa Rao on 44-31-3241WE Stress Diastolic Xogznc43 mlK[facility] Work Phone: LV Stress Systolic Volume7 mlK[facility] Work Phone: Stress Nuc Stress EF86 %[facility] Work Phone: [facility]St. [facility] Work Phone: [place] Myocardial Perfusion Multiple SPECTon 02-18-2023 Patient Info Name: ADDIE ORGAN Age: 47 years : 1975 Gender: Female Ht: 157 cm Wt: 114 kg BSA: 2.30 m2 Exam Date: 02/18/2023 8:50 AM Patient Status: Inpatient Senior Project Coordinator: Aravind Wright, ROGELIO, Davide Mims RT (N), Hayden Mendieta R.T.(N), ROGELIO Exam Type: [place] MYOCARDIAL PERFUSION MULTI SPECT Study Info Indications - Chest pain/anginal equiv, high CAD risk, not treadmill candidate Attending Physician: [facility] GENERIC Nuclear Physician: Inessa Rao MD [phone] Primary Nurse: Sandra Sweeney RN Secondary Nurse: [...] size is normal. Radiopharmaceutical: Tc-99m Camera Used: VOYAASPECTheracos Radiopharmaceutical: Tc-99m Camera Used: [employer] Image Protocol Protocol: Rest/Stress 1 Day Rest [...] Max RPP: 16,324 bpm*mm (more content not included)...HOWIE Macario, Inessa Woodson MD - 02/18/2023 Patient Info Name: ADDIE ORGAN Age: 47 years : 1975 Gender: Female Ht: 157 cm Wt: 114 kg BSA: 2.30 m2 Exam Date: 02/18/2023 8:50 AM Patient Status: Inpatient Senior Project Coordinator: Aravind Wright, ROGELIO, Davide Mims, RT (N), Hayden Mendieta R.T.(N), ROGELIO Exam Type: [place] MYOCARDIAL PERFUSION MULTI SPECT Study Info Indications - Chest pain/anginal equiv, high CAD risk, not treadmill candidate Attending Physician: [facility] Nuclear Physician: Inessa Rao MD [phone] Primary Nurse: Sandra Sweeney RN Secondary Nurse: [...] size is normal. Radiopharmaceutical: Tc-99m Camera Used: [employer] Radiopharmaceutical: Tc-99m Camera Used: [employer]YA[employer] Image Protocol Protocol: Rest/Stress 1 Day Rest [...] perfusion imaging study (more content not included)... [facility] Study observation (narrative)OhioPremier Health [facility] Hospital NorthoponinOrdered By: Robin Odom on 21-10-2537Ghmuc Difference Troponin T-1 ng/L< = -/+ 7 change OhioHealthInterp Troponin T Delta ChangeProbable non-acute cardiac injury or late presentation of acute injury.[facility] PrebleInterpretation and review of laboratory resultsAbnormalOhioHealthTroponin T19 ng/LCritically highNINF - 14 ng/LOhioHealthOhioHealthTroponinon 32-80-0966Ybwicq Troponin T Delta ChangeDelta troponin requires at least 3 hours between collections.OhioHealthInterpretation and review of laboratory resultsAbnormalOhioHealthTroponin T18 ng/LCritically highNINF - 14 ng/LOhioHealthOhioHealthTroponin x 2 (Now and Repeat in 3 hours)on 05-33-3020Njzad Difference Troponin T-2 ng/L< = -/+ 7 changeOhioHealthInterp Troponin T Delta ChangeProbable non-acute cardiac injury or late presentation of acute injury.[place]HealthInterpretation and review of laboratory resultsAbnormal OhioHealthTroponin T18 ng/LCritically highNINF - 14 ng/LOhioHealthOhioHealthCBC Auto Differentialon 39-89-4219Rubhhrxcn (Bld) [#/Vol]0.07 10*3/uLOhioHealth Basophils/100 WBC (Bld)0.8 %OhioHealthEosinophils (Bld) [#/Vol]0.21 10*3/uL OhioHealthEosinophils/100 WBC (Bld)2.4 %OhioHealthErythrocyte distribution width (RBC) [Entitic vol]13.0 %11.6 - 14.8 %OhioHealthHematocrit (Bld) [Volume fraction]37.9 %36.0 - 46.0 %OhioHealthHemoglobin (Bld) [Mass/Vol]12.8 g/dL12.0 - 16.0 g/dLOhioHealthImmature granulocytes (Bld) [#/Vol]0.04 10*3/uLOhioHealth Immature granulocytes/100 WBC (Bld)0.50 %OhioHealthComment on above:The IG parameter is the percentage of metamyelocytes, myelocytes and promyelocytes. An immature granulocyte count (IG) of 1% or more suggests the possibility of infection, an IG count of 3% is very likely related to an infection.Lymphocytes (Bld) [#/Vol]2.28 10*3/uLOhioHealthLymphocytes/100 WBC (Bld)25.9 %OhioHealthMCH (RBC) [Entitic mass]29.6 pg26.0 - 34.0 pgOhioHealthMCHC (RBC) [Mass/Vol]33.8 g/dL31.0 - 37.0 g/dLOhioHealthMCV (RBC) [Entitic vol]87.5 fL80.0 - 100.0 fL OhioHealthMonocytes (Bld) [#/Vol]0.46 10*3/uLOhioHealthMonocytes/100 WBC (Bld) 5.2 %OhioHealthNeutrophils (Bld) [#/Vol]5.76 10*3/uLOhioHealthNeutrophils/100 WBC (Bld)65.2 %OhioHealthNucleated RBC (Bld) [#/Vol]0.00 10*3/uLOhioHealth Nucleated RBC/100 WBC (Bld) [Ratio]0.0 %OhioHealthPlatelet mean volume (Bld) [Entitic vol]9.4 fL9.4 - 12.4 fLOhioHealthPlatelets (Bld) [#/Vol]318 10*3/uL OhioHealthRBC (Bld) [#/Vol]4.33 10*6/uLOhioHealthWBC (Bld) [#/Vol]8.82 10*3/uL OhioHealthOhioHealthCT Chest Abdomen Pelvis Without Contraston 02-17-2023 1. No acute findings in the chest, abdomen, or pelvis. 2. Chronic and incidental findings as above. [employer] Workstation ID: [id number] RISEXAMINATION: CT CHEST ABDOMEN PELVIS WITHOUT CONTRAST HISTORY: [...] using automated exposure control and/or adjustment of mAand/or kV according to patient size and/or use [...] pericardial effusion is likely physiologic. No lymphadenopathy. Thyroidand esophagus are unremarkable. Lungs, airways and pleura: No pleural effusion, focal consolidation, or pneumothorax. Airways are patent. No suspicious pulmonary nodules. Musculoskeletal and Chest wall: No acute or suspicious osseous lesions. Degenerative changes of thethoracic spine. ABDOMEN/PELVIS: Liver and biliary tree: Focal [...] Musculoskeletal: No acute or suspicious osseous findings. Hybrent Bridger Preciado MD - 02/17/2023 EXAMINATION: CT CHEST ABDOMEN [...] using automated exposure control and/or adjustment of mAand/or kV according to patient size and/or use [...] pericardial effusion is likely physiologic. No lymphadenopathy. Thyroidand esophagus are unremarkable. Lungs, airways and pleura: No pleural effusion, focal consolidation, or pneumothorax. Airways are patent. No suspicious pulmonary nodules. Musculoskeletal and Chest wall: No acute or suspicious osseous lesions. Degenerative changes of thethoracic spine. ABDOMEN/PELVIS: Liver and biliary tree: Focal [...] above. DEEPA/mkv Workstation ID: [id number] [facility] (narrative)[facility] Chest Abdomen Pelvis Without ContrastOrdered By: Bridger Webb on 79-92-0955MyuaMonyhu Work Phone: ct Head Or Brain Without Contraston 02-17-2023 1. No acute intracranial abnormality. Workstation ID: [id number] RISEXAMINATION: CT OF THE BRAIN. HISTORY: dizziness COMPARISON: Head CT most recently 06/11/2022 at [place] TECHNIQUE: Axial CT images were acquired from [...] Ventricles and cisternal spaces are age appropriate. Andrew Hall MD - 02/17/2023 EXAMINATION: CT OF THE BRAIN. HISTORY: dizziness COMPARISON: Head CT most recently 06/11/2022 at [place] TECHNIQUE: Axial CT images were acquired from [...] intracranial abnormality. Workstation ID: [id number] [facility]Rad[facility] Study observation (narrative)OhioHealthCT Head Or Brain Without ContrastOrdered By: Andrew Martin on 09-27-2599JloaPaibvm Work Phone: Comprehensive metabolic 2000 panelon 43-15-0669Tysovcl [Mass/Vol]3.8 g/dL3.2 - 5.2 g/dLOhioHealthALP [Catalytic activity/Vol]134 U/L40 - 150 U/LOhioHealthALT [Catalytic activity/Vol]8 U/L0-35 U/LOhioHealthAnion gap [Moles/Vol]15 mmol/L10 - 20 mmol/LOhioHealthAST [Catalytic activity/Vol]9 U/L0- 35 U/LOhioHealthBilirubin [Mass/Vol]0.3 mg/dL0.0 - 1.3 mg/dLOhioHealthCalcium [Mass/Vol]9.2 mg/dL8.4 - 10.2 mg/dLOhioHealthChloride [Moles/Vol]101 mmol/L98 - 108 mmol/LOhioHealthCreatinine [Mass/Vol]1.00 mg/dL0.40 - 1.10 mg/dLOhioHealth GFR/1.73 sq M.predicted CKD-EPI (S/P/Bld) [Vol rate/Area]71- PINFOhioHealth Comment on above:Estimated GFR was calculated using the 2020 CKD-EPI creatinine equation.Glucose [Mass/Vol]347 mg/fRKhum08 - 99 mg/dLOhioHealthHCO3 [Moles/Vol] 23 mmol/L21 - 32 mmol/LOhioHealthInterpretation and review of laboratory results AbnormalOhioHealthPotassium [Moles/Vol]4.3 mmol/L3.5 - 5.1 mmol/LOhioHealth Protein [Mass/Vol]6.7 g/dL6.0 - 8.0 g/dLOhioHealthSodium [Moles/Vol]135 mmol/L 135 - 145 mmol/LOhioHealthUrea nitrogen [Mass/Vol]14 mg/dL8 - 25 mg/dLOhioHealth Urea nitrogen/Creatinine [Mass ratio]14.0 mg/mg10.0 - 20.0OhioKind[facility] has implemented the eGFR calculation approach that does not have a coefficient for race that conforms to the NKF-ASN Task Force Recommendations.[facility]ECG 12 Leadon 69-20-8727Axvulkdxebmzjv and review of laboratory resultsAbnormalOhiMDHayde Lundberg DO 02/18/2023 12:40 AM ECG 12 Lead Date/Time: 02/17/2023 9:36 PM Performed by: Hayde Pickering DO Authorized by: Hayde Pickering DO Interpreted by ED attending physician Comparison: compared with previous ECG Rhythm: sinus rhythm BPM: 96 Other findings: LELA Clinical impression: abnormal ECGMUSEOhioHealthLipaseon 80-89-4332Tszbhl [Catalytic activity/Vol]35 U/L15 - 65 U/LOhioHealthLipase [Catalytic activity/Vol]on 70-83-9793Kwmeydgdhucgbv and review of laboratory resultsNormal [facility]bleNo Panel Informationon 32-28-5249Mzjtu TubeHold for add-ons.[facility] Comment on above:Auto resulted.OhioMercy Health St. Rita'S Medical CenterOhioHealthTroponin x 2 (Now and Repeat in 3 hours)Ordered By: Zainab Echeverria on 08-22-6648Ckpjcwugykgwel and review of laboratory resultsAbnormalOhioHealthTroponin T20 ng/LCritically highNINF - 14 ng/LOhioHealthTroponin T InterpretationPossible acute cardiac injury.[facility] HospitalUrinalysisOrdered By: Kendra Bae on 87-55-7246Takxuuya Auto Ql (U) None SeenNone Seen /hpfOhioHealthBilirubin Ql (U)NegativeNegativeOhioHealth Clarity Refractometry automated (U)HazyAbnormalClearOhioHealthColor (U)Yellow Colorless, YellowOhioHealthEpithelial cells.squamous Auto (Urine sed) [#/Area]3 OhioHealthGlucose Auto test strip (U) [Mass/Vol]>=500AbnormalNegative mg/dL OhioHealthHemoglobin Auto test strip Ql (U)SmallAbnormalNegativeOhioHealth Hyaline casts Auto (Urine sed) [#/Area]3-5AbnormalOhioHealthInterpretation and review of laboratory resultsAbnormalOhioHealthKetones (U) [Mass/Vol]Negative Negative mg/dLOhioHealthLeukocyte clumps Auto (Urine sed) [#/Area]RareAbnormal None Seen /hpfOhioHealthLeukocyte esterase Auto test strip Ql (U)Negative NegativeOhioHealthMucus Auto (Urine sed) [#/Area]RareNone Seen, Rare /lpf OhioHealthNitrite Auto test strip Ql (U)NegativeNegativeOhioHealthpH (U)5.0 [pH] 5.0 - 7.0OhioHealthProtein (U) [Mass/Vol]100 mg/dLAbnormalNegativeOhioHealthRBC Auto (Urine sed) [#/Area]2OhioHealthSpecific gravity (U) [Rel density]1.0251.005 - 1.025OhioHealthUrobilinogen (U) [Mass/Vol]mg/dLNINF - 2.0 mg/dLOhioHealthWBC Auto (Urine sed) [#/Area]11HighOhioHealthMicroscopic examination is performed on all urinalysis samples and only positive findings are reported. The test for blood on the chemical analytic portion of urinalysis may also be positive due to hemoglobinuria and myoglobinuria and if red blood cells are present they are quantified by microscopic examination.[facility] CenterioMer[facility] Health [facility] Medical CenterXR Chest 1 Viewon 02-17-2023 Low lung volumes with bronchovascular crowding. No airspace consolidation. Workstation ID: [id number] RISEXAMINATION: XR CHEST PA/AP HISTORY: ORDERING SYSTEM PROVIDED [...] superior vena cava. Left-sided pacemaker device noted. Elvis Barrow MD - 02/17/2023 EXAMINATION: XR CHEST PA/AP HISTORY: [...] airspace consolidation. Workstation ID: [id number] [facility] (narrative)[facility]XR Chest 1 View Ordered By: Elvis Mae on [id number] Work Phone: cb AUTO DIFFon [id number] #0.1 103/ulNormal 0.0-0.1The [facility] CenterComment on above:Performed By: #### CBC ####[facility] Bceaftdzff230[address] [place], [place] [address]BdMarisDevin Suresh Basophils/100 WBC (Bld)0.6 %Normal0.2-2.0The [facility] CenterComment on above: Performed By: #### CBC ####[facility] Rvggctxndg[address] [place], [place] [address]Dr.Yilan ChangEO #0.2 103/ulNormal0.0-0.7The [facility]ckley HospitalComment on above:Performed By: #### CBC ####[facility] Vpftuknegf8889[address] [place], [place] [address]Dr.Tishlan ChangEosinophils/100 WBC (Bld)1.8 %Normal0.9-7.0The [facility]ckley HospitalComment on above:Performed By: #### CBC ####[facility] Nvxeucecpb5747[address] [place], [place] [address]Dr.Tishlan ChangErythrocyte distribution width (RBC) [Ratio]12.0 %Normal 11.0-15.0The [facility] CenterComment on above:Performed By: #### CBC ####[facility] Uxdgyeaqud4901[address] [place], [place] [address]Dr. Tishlan ChangHematocrit (Bld) [Volume fraction]28.3 %Critically low36.0-48.0The [facility] CenterComment on above:Performed By: #### CBC ####[facility] Aundelhfuw7055[address] [place], [place] [address]Dr.Devin ChangHemoglobin (Bld) [Mass/Vol]9.5 g/dLCritically low12.0-16.0The [facility] CenterComment on above:Performed By: #### CBC ####[facility] Ntmjjlenpm560[address] [place], [place] [address]Dr.Yilan ChangIG #0.05 10e3/ulCritically high0.00-0.03 The [facility] CenterComment on above:Performed By: #### CBC ####[facility] Rurombsbmp0701[address] [place], [place] [address]Dr.Yilan ChangIG % 0.6 %Critically high0.0-0.5The [facility] CenterComment on above:Performed By: #### CBC ####[facility] Hbirkiwikg7906[address] [place], [place] [address]Dr.Yilan ChangLYMPH #1.9 103/ulNormal1.2-3.8The [facility] CenterComment on above:Performed By: #### CBC ####[facility] My[address]wixb[address] [place] [address]Dr.Devin SureshLymphocytes/100 WBC (Bld)20.4 % Critically low20.5-60.0The [facility] CenterComment on above:Performed By: #### CBC ####[facility] Iicbztkwbi7698[address] [place], [place] [address]Dr. Devin SureshMANUAL DIFF REQNONormalThe [facility] CenterComment on above: Performed By: #### CBC ####[facility] Dhywezzyfb1264[address] [place], [place] [address]Dr.Devin SureshH (RBC) [Entitic mass]30.6 pgNormal 26.7-34.0The [facility] CenterComment on above:Performed By: #### CBC ####[facility] Tapfcxnpje9644[address] [place], [place] [address]Dr. Devin SureshHC (RBC) [Mass/Vol]33.6 g/mHEtjtzu38.9-35.2The [facility] Comment on above:Performed By: #### CBC ####[facility] Rtsemhgzdd827[address] [place], [place] [address]Dr.Devin SureshMCV (RBC) [Entitic vol]91.3 fL Siuxoc32.0-99.0The [facility] CenterComment on above:Performed By: #### CBC ####[facility] Pfcoqbkiex1865[address] [place], [place] [address]Dr. Devin SureshMONO #0.6 103/ulNormal0.3-0.8The [facility] CenterComment on above: Performed By: #### CBC ####[facility] Fjayvsqsug893[address] [place], [place] [address]Dr.Devin SureshMonocytes/100 WBC (Bld)7.1 %Normal 1.7-12.0The [facility] CenterComment on above:Performed By: #### CBC ####[facility] Wxcxwpvzuh3707[address] [place], [place] [address]Dr. Tishemily SureshNEUT #6.3 103/ulNormal1.4-6.5The [facility] CenterComment on above: Performed By: #### CBC ####[facility] Ohbvpkceyk9995[address] [place], [place] [address]Dr.Devin SureshNeutrophils/100 WBC (Bld)69.5 %Normal 43.0-75.0The [facility] CenterComment on above:Performed By: #### CBC ####[facility] Vwlbovrupo569[address] [place], [place] [address]Dr. Devin SureshPlatelet mean volume (Bld) [Entitic vol]9.5 fLNormal9.5-13.5The [facility]ck[facility] HospitalComment on above:Performed By: #### CBC ####[facility] Jnktwcliey8032[address] [place], [place] [address]Dr.Tishemily SureshCkcpaOXV260 103/ul Stozvd951-851Kke [facility] CenterComment on above:Performed By: #### CBC ####[facility] Rshseuxnen285[address] [place], [place] [address]Dr. Devin SureshRBC3.10 106/ulCritically low4.20-5.40The [facility] CenterComment on above:Performed By: #### CBC ####[facility] Nlfckmdgkn548[address] [place], [place] [address]Dr.Tishemily SureshWBC9.1 103/ulNormal4.0-11.0The [facility] CenterComment on above:Performed By: #### CBC ####[facility] Deptvrizdt0212[address] [place], [place] [address]Dr.Devin SureshCT FOOT RT WO CONon 10-54-0535JQ FOOT RT WO CONNormalThe [facility] CenterDRUG SCREEN RAPID (URINE)on 58-12-7057GZFNllhpbdnJfpoutAIUZLRFVJai Bellevue HospitalComment on above:Performed By: #### DRUGRPD ####[facility] Bzssumhlkb0086[address] [place], [place] [address]Dr. Devin SureshBARNegativeNormalNEGATIVEPremier HealthComment on above:Performed By: #### DRUGRPD ####[facility] Bslogjcrum8315[address] [place], [place] [address]Dr. Devin SureshBUPNegative NormalNEGATIVEPremier HealthComment on above:Performed By: #### DRUGRPD ####[facility] Aaoxrkqsfg3075[address] [place], [place] [address]Dr. Devin SureshBZONegativeNormalNEGATIVEPremier HealthComment on above: Performed By: #### DRUGRPD ####[facility] Pqpmotfomn1816[address] [place], [place] [address]Dr. Devin SureshCOCNegativeNormalNEGATIVEPremier HealthComment on above:Performed By: #### DRUGRPD ####[facility] Bdngzlfege948[address] [place], [place] [address]Dr. Devin SureshCUT-OFFSE [facility] Medical CenterComment on above:Result Comment: AMP (Amphetamine): 500ng/mL, BAR (Barbituates): 200 ng/mL, BZO (Benzodiazepines): 15 0 ng/mL, BUP (Buprenorphine): 10 ng/mL, KATHY (Cocaine): 150 ng/mL, mAMP (Methamphetamine): 500 ng/mL, MTD (Methadone): 200 ng/mL, OPI (Opiates): 100 ng/mL, OXY (Oxycodone): 100 ng/mL, PCP (Phencyclidine): 25 ng/mL, PPX (Propoxyphene): 300 ng/mL, THC (Cannabinoids): 50 ng/mL, TCA (Trycyclic Antidepressants): 300 ng/mLPerformed By: #### DRUGRPD ####[facility] Kpbcmfyzrb953[address] [place], [place] [address]Dr. Devin SureshDRUG CUT HEADERDRUG CLASS TEST SYSTEM CUT-OFF CONCENTRATIONS ARE FOLLOWS:NormalThe [facility] CenterComment on above:Performed By: #### DRUGRPD ####[facility] Zjtszttram0767[address] [place], [place] [address]Dr. Devin SureshmAMP NegativeNormalNEGATIVEPremier HealthComment on above:Performed By: #### DRUGRPD ####[facility] Wvpuhpgzbx6804[address] [place], [place] [address]Dr. Devin SureshMTDNegativeNormalNEGATIVEThe [facility] Kay HospitalComment on above:Performed By: #### DRUGRPD ####[facility] Doggqruksa[address] [place] [address]Dr. Yilan ChangOPINegativeNormalNEGATIVETwin City Hospital HospitalComment on above:Performed By: #### DRUGRPD ####[facility] Cnmajobxqd77[address] [place] [address]Dr. Yilan ChangOXYNegative NormalNEGATIVETwin City Hospital HospitalComment on above:Performed By: #### DRUGRPD ####[facility] Fkqrcvnqnh7[address] [place] [address]Dr. Yilan ChangPCPNegativeNormalNEGATIVETwin City Hospital HospitalComment on above: Performed By: #### DRUGRPD ####[facility] Wrvcfiivxu9267[address] [place], [place] [address]Dr. Yilan ChangPPXNegativeNormalNEGATIVETwin City Hospital HospitalComment on above:Performed By: #### DRUGRPD ####[facility] Jpbqzzyyaq0526[address] [place], [place] [address]Dr. Yilan ChangTCAPositive AbnormalNEGATIVEPremier HealthComment on above:Performed By: #### DRUGRPD ####[facility] Opcdeqzebj897[address] [place], [place] [address]Dr. Yilan ChangTHCNegativeNormalNEGATIVEPremier HealthComment on above: Performed By: #### DRUGRPD ####[facility] Khxpiffktk9556[address] [place], [place] [address]Dr. Yilan [facility] GLUCOSEon 10-22-2022 Glucose [Mass/Vol]400 mg/dLCritically etvw24-081JhuPremier HealthComment on above:Performed By: #### POCGLUC ####[facility] Bekayhdwnv340[address] [place], [place] [address]Dr. Yilan ChangGlucose [Mass/Vol]284 mg/dLCritically zlek10-729NdnPremier HealthComment on above:Performed By: #### POCGLUC ####[facility] Tbdhwkwwer7338[address] [place], [place] [address]Dr. Yilan ChangGlucose [Mass/Vol]161 mg/dLCritically ulga00-813Vsy [facility] Comment on above:Performed By: #### POCGLUC ####[facility] Xtbqqtxjyp968[address] [place], [place] [address]Dr. Yilan ChangGlucose [Mass/Vol]283 mg/dL Critically wmro94-682Swa [facility] CenterComment on above:Performed By: #### POCGLUC ####[facility] Sbhzbfsfgc3428[address] [place], [place] [address]Dr. Yilan ChangGlucose [Mass/Vol]316 mg/dLCritically rauz47-179Ewu [facility] CenterComment on above:Performed By: #### POCGLUC ####[facility] Kjusmeynwz4566[address] [place], [place] [address]Dr. Yilan ChangPROF 14(COMP METB)on 01-13-7871Rfohyby [Mass/Vol]2.4 g/dLCritically low3.4-5.0The [facility] CenterComment on above:Performed By: #### CMP ####[facility] Bbqwvwdaes1897[address] [place], [place] [address]Dr.Devin Suresh Albumin/Globulin [Mass ratio]0.6 {ratio}NormalThe [facility] CenterComment on above:Performed By: #### CMP ####[facility] Nmrjuflvba6787[address] [place], [place] [address]Dr.Yilan ChangALP [Catalytic activity/Vol]115 U/L Yyiwoi73-660Tce [facility] CenterComment on above:Performed By: #### CMP ####[facility] Jolrncskxk2028[address] [place], [place] [address]Dr. Yilan ChangALT [Catalytic activity/Vol]17 U/ZXtmriy58-63Pws [facility] Comment on above:Performed By: #### CMP ####[facility] Tqjlfppogo770[address] [place], [place] [address]Dr.Yilan ChangAnion gap [Moles/Vol]12.2 mmol/LNormalThe [facility] CenterComment on above:Performed By: #### CMP ####[facility] Fdbaiywojz09232[address] [place], [place] [address]Dr. Yilan ChangAST [Catalytic activity/Vol]15 U/AMamnyn35-63Vrn [facility] Comment on above:Performed By: #### CMP ####[facility] Foxqjctrqj9754[address] [place], [place] [address]Dr.Yiemily ChangBilirubin [Mass/Vol]0.3 mg/dL Normal0.2-1.0The [facility] CenterComment on above:Performed By: #### CMP ####[facility] Flkhhhgxbl558[address] [place], [place] [address]Dr. Yilan ChangCalcium [Mass/Vol]8.6 mg/dLNormal8.5-10.1The [facility] CenterComment on above:Performed By: #### CMP ####[facility] Ihjijkjefb8487[address] [place], [place] [address]Dr.Yilan ChangChloride [Moles/Vol]104 mmol/LNormal 98-107The [facility] CenterComment on above:Performed By: #### CMP ####[facility] Olelokyddy8839[address] [place], [place] [address]Dr.Yilan ChangCO2 [Moles/Vol]25.7 mmol/RKjksxj71.0-32.0The [facility] CenterComment on above: Performed By: #### CMP ####[facility] Odzoiqgqmg136[address] [place], [place] [address]Dr.Yiemily ChangCreatinine [Mass/Vol]1.17 mg/dL Critically high0.55-1.02The [facility] CenterComment on above:Performed By: #### CMP ####[facility] Blucktsrbm826[address] [place], [place] [address]Dr.Yilan ChangEGFR-AF CONGOLESE>60Normal>=60The [facility] CenterComment on above:Performed By: #### CMP ####[facility] Ijkcgzxsdv839[address] [place], [place] [address]Dr.Yilan ChangEGFR-NON AF ETMGFPMF63 mL/min/1.73m2 Critically low>=60The [facility] CenterComment on above:Performed By: #### CMP ####[facility] Erpvwjmsyl1500[address] [place], [place] [address]Dr. Yilan ChangGlobulin (S) [Mass/Vol]4.1 g/dLNormSelect Medical Specialty Hospital - TrumbullComment on above:Performed By: #### CMP ####[facility] Xbqxqxuqrk1357[address] [place], [place] [address]Dr.Yilan ChangGlucose [Mass/Vol]262 mg/dLCritically vpyi14-142Ezf [facility] CenterComment on above:Performed By: #### CMP ####[facility] Dnefdjsntz3340[address] [place], [place] [address]Dr. Yilan ChangPotassium [Moles/Vol]3.9 mmol/LNormal3.5-5.1The [facility] Comment on above:Performed By: #### CMP ####[facility] Ichhtdtruf301[address] [place], [place] [address]Dr.Yilan ChangProtein [Mass/Vol]6.5 g/dL Normal6.4-8.2The [facility] CenterComment on above:Performed By: #### CMP ####[facility] Ebyvmxnpvo1035[address] [place], [place] [address]Dr. Yilan ChangSodium [Moles/Vol]138 mmol/TJetnqk190-874Vlh [facility] CenterComment on above:Performed By: #### CMP ####[facility] Akrongjsjh5832[address] [place], [place] [address]Dr.Yilan ChangUrea nitrogen [Mass/Vol]23.0 mg/dL Critically high7.0-18.0The [facility] CenterComment on above:Performed By: #### CMP ####[facility] Secegtbmbu2705[address] [place], [place] [address]Dr. Yilan ChangUrea nitrogen/Creatinine [Mass ratio]19.7 mg/mgNoSelect Medical Specialty Hospital - Cincinnati NorthComment on above:Performed By: #### CMP ####[facility] Hrjvpdsaql8299[address] [place], [place] [address]Dr.Yilan ChangACETONE SERUMon 56-45-4358WDWBNVSZzkluildPfgiqkKRXQDWWKRju [facility] CenterComment on above: Performed By: #### ACETON ####[facility] Axjqurlybq0516[address] [place], [place] [address]Dr. Devin SureshCBC AUTO DIFFon 36-93-5567NEPW #0.1 103/ulNormal0.0-0.1The [facility] CenterComment on above:Performed By: #### CBC ####[facility] Brvtkafxog[address] [place] [address]Dr. Devin ChangBasophils/100 WBC (Bld)0.4 %Normal0.2-2.0The [facility] CenterComment on above:Performed By: #### CBC ####[facility] Kltxdnqzdw68[address] [place] [address]Dr.Tishlan ChangEO #0.2 103/ulNormal0.0-0.7The [facility] CenterComment on above:Performed By: #### CBC ####[facility] Uxzvrykmlu32[address] [place] [address]Dr.Devin ChangEosinophils/100 WBC (Bld)1.1 %Normal0.9-7.0The [facility] CenterComment on above:Performed By: #### CBC ####[facility] Xvivvloeqi138[address] [place], [place] [address]Dr.Devin ChangErythrocyte distribution width (RBC) [Ratio]12.0 %Normal 11.0-15.0The [facility]. Mary Hospitalment on above:Performed By: #### CBC ####[facility] Fiapuaksfv1522[address] [place], [place] [address]Dr. Devin ChangHematocrit (Bld) [Volume fraction]34.1 %Critically low36.0-48.0The [facility] CenterComment on above:Performed By: #### CBC ####[facility] Enznjbdqof4419[address] [place], [place] [address]Dr.Devin ChangHemoglobin (Bld) [Mass/Vol]11.4 g/dLCritically low12.0-16.0The [facility] CenterComment on above:Performed By: #### CBC ####[facility] Wobzhvxika5575[address] [place], [place] [address]Dr.Devin ChangIG #0.05 10e3/ulCritically high0.00-0.03 The [facility] CenterComment on above:Performed By: #### CBC ####[facility] Qhtjxxgeic80[address] [place] [address]Dr.Devin SureshIG % 0.4 %Normal0.0-0.5The [facility] CenterComment on above:Performed By: #### CBC ####[facility] Pjiuyvporw7578[address] [place], [place] [address]Dr. Devin SureshLYMPH #1.6 103/ulNormal1.2-3.8The [facility] CenterComment on above: Performed By: #### CBC ####[facility] Vylbydemkj695[address] [place], [place] [address]Dr.Devin SureshLymphocytes/100 WBC (Bld)11.9 % Critically low20.5-60.0The [facility] CenterComment on above:Performed By: #### CBC ####[facility] Ozwknsiaqs3417[address] [place], [place] [address]Dr. Devin SureshMANUAL DIFF REQNONormalThe [facility] CenterComment on above: Performed By: #### CBC ####[facility] Bxhobzizap8810[address] [place], [place] [address]Dr.Devin SureshH (RBC) [Entitic mass]30.5 pgNormal 26.7-34.0The [facility] CenterComment on above:Performed By: #### CBC ####[facility] Nvrbukjihs433[address] [place], [place] [address]Dr. Devin KerwinHC (RBC) [Mass/Vol]33.4 g/hWPactpa68.9-35.2The [facility] Comment on above:Performed By: #### CBC ####[facility] Bvjzbiouss48112[address] [place], [place] [address]Dr.Devin KerwinV (RBC) [Entitic vol]91.2 fL Eozqos47.0-99.0The [facility] CenterComment on above:Performed By: #### CBC ####[facility] Oyqsamqyhj040[address] [place], [place] [address]Dr. Devin SureshMONO #0.7 103/ulNormal0.3-0.8The [facility] CenterComment on above: Performed By: #### CBC ####[facility] Jrcocfsosw12[address] [place] [address]Dr.Tishlan ChangMonocytes/100 WBC (Bld)5.4 %Normal 1.7-12.0The [facility] CenterComment on above:Performed By: #### CBC ####[facility] Gkoedvmckb168[address] [place], [place] [address]Dr. Yilan ChangNEUT #11.0 103/ulCritically high1.4-6.5The [facility]ley HospitalComment on above:Performed By: #### CBC ####[facility] Mroirqduwe5780[address] [place], [place] [address]Dr.Yilan ChangNeutrophils/100 WBC (Bld)80.8 % Critically high43.0-75.0The [facility] CenterComment on above:Performed By: #### CBC ####[facility] Uhgaznqkdm2317[address] [place], [place] [address]Dr. Yilan ChangPlatelet mean volume (Bld) [Entitic vol]9.1 fLCritically low9.5-13.5 The [facility] CenterComment on above:Performed By: #### CBC ####[facility] Psmuxxgyyn023[address] [place], [place] [address]Dr.Yilan JighpVJS732 103/hpYploxg976-091Kbp [facility] CenterComment on above:Performed By: #### CBC ####[facility] Yxpoqofohu7616[address] [place], [place] [address]Dr. Yilan ChangRBC3.74 106/ulCritically low4.20-5.40The [facility] CenterComment on above:Performed By: #### CBC ####[facility] Vxebcbeecl7619[address] [place], [place] [address]Dr.Yilan WytqhSYB84.6 103/ulCritically high4.0-11.0The [facility] CenterComment on above:Performed By: #### CBC ####[facility] Weagrtxysa932[address] [place], [place] [address]Dr.Yilan ChangCRPon 49-40-0790JZR86.8 mg/dLCritically high<=1.0The [facility] CenterComment on above:Performed By: #### CMP, CRP ####[facility] Deppewzoaq7249[address] [place], [place] [address]Dr. Devin ChangLACTATE/LACTIC ACIDon 61-85-6018Jtxkbtx [Moles/Vol]1.6 mmol/LNormal0.4-2.0The [facility] CenterComment on above: Performed By: #### LACT ####[facility] Psgjichuse2059[address] [place], [place] [address]Dr. Devin ChangPH VENOUS BLOODon 72-59-2895UWC1 VENOUS 49.5 lcXjYpuqdz62.0-52.0The [facility] CenterComment on above:Performed By: #### PHVEN ####[facility] Xtuklugzmw8765[address] [place], [place] [address]Dr. Devin ChangpH VENOUS7.590Bkftwp1.330-7.430The [facility] CenterComment on above:Performed By: #### PHVEN ####[facility] Manrjxmhux101[address] [place], [place] [address]Dr. Devin ChangPOINT OF CARE GLUCOSEon 10-21-2022 Glucose [Mass/Vol]151 mg/dLCritically jnbf99-694Ljz [facility] CenterComment on above:Performed By: #### POCGLUC ####[facility] Dhaqcojiix6338[address] [place], [place] [address]Dr. Devin ChangPROF 14(COMP METB)on 60-42-9710Zybsulb [Mass/Vol]3.1 g/dLCritically low3.4-5.0The [facility] CenterComment on above: Performed By: #### CMP, CRP ####[facility] Vgvlriolzf676[address] [place], [place] [address]Dr. Devin SureshAlbumin/Globulin [Mass ratio]0.6 {ratio}NormalThe [facility] CenterComment on above:Performed By: #### CMP, CRP ####[facility] Sxphbfzyes9409[address] [place], [place] [address]Dr. Yilan ChangALP [Catalytic activity/Vol]132 U/LCritically faxq64-689Wil [facility] CenterComment on above:Performed By: #### CMP, CRP ####[facility] Otfuaudgip1301[address] [place], [place] [address]Dr. Yilan ChangALT [Catalytic activity/Vol]20 U/TVrepvy74-57Dll [facility] CenterComment on above:Performed By: #### CMP, CRP ####[facility] Qnexsewquj8332[address] [place], [place] [address]Dr. Yilan ChangAnion gap [Moles/Vol]14.4 mmol/LNormalThe [facility] CenterComment on above:Performed By: #### CMP, CRP ####[facility] Vljqhskqfj226[address] [place], [place] [address]Dr. Yilan ChangAST [Catalytic activity/Vol]20 U/KFlwuvi18-95Gqp [facility] CenterComment on above:Performed By: #### CMP, CRP ####[facility] Zloxczapqf9047[address] [place], [place] [address]Dr. Yilan ChangBilirubin [Mass/Vol]0.3 mg/dLNormal0.2-1.0The [facility] CenterComment on above:Performed By: #### CMP, CRP ####[facility] Jeytzjemth4112[address] [place], [place] [address]Dr. Yilan ChangCalcium [Mass/Vol]9.2 mg/dLNormal8.5-10.1The [facility] CenterComment on above:Performed By: #### CMP, CRP ####[facility] Iycicamsyu2468[address] [place], [place] [address]Dr. Yilan ChangChloride [Moles/Vol]101 mmol/LNormal 98-107The [facility] CenterComment on above:Performed By: #### CMP, CRP ####[facility] Mjlqbfcnjt1550[address] [place], [place] [address]Dr. Yilan ChangCO2 [Moles/Vol]26.6 mmol/OBgqqiq21.0-32.0The [facility] CenterComment on above:Performed By: #### CMP, CRP ####[facility] Qriycrejas2344[address] [place], [place] [address]Dr. Yilan ChangCreatinine [Mass/Vol]1.34 mg/dL Critically high0.55-1.02The [facility] CenterComment on above:Performed By: #### CMP, CRP ####[facility] Favvftbxae9147[address] [place], [place] [address]Dr. Yilan ChangEGFR-AF UVSIYDKV20 mL/min/1.54t7Sluinevteo low>=60The [facility] CenterComment on above:Performed By: #### CMP, CRP ####[facility] Ooyjgyesri30[address] [place], [place] [address]Dr. Yilan ChangEGFR- NON AF FIERWHHH29 mL/min/1.29t4Jucljeoaeo low>=60The [facility] CenterComment on above:Performed By: #### CMP, CRP ####[facility] Atamzzatut2848[address] [place], [place] [address]Dr. Yilan ChangGlobulin (S) [Mass/Vol]4.9 g/dL NormalThe [facility] CenterComment on above:Performed By: #### CMP, CRP ####[facility] Qswqkmmsjo[address] [place], [place] [address]Dr. Yilan ChangGlucose [Mass/Vol]210 mg/dLCritically gezg94-707Wvo [facility] Comment on above:Performed By: #### CMP, CRP ####[facility] Anpnjeyzji[address] [place], [place] [address]Dr. Yilan ChangPotassium [Moles/Vol]4.0 mmol/LNormal3.5-5.1The [facility] [facility]ayette [facility] CenterComment on above: Performed By: #### CMP, CRP ####[facility] [address] [place], [place] [address]Dr. Yilan ChangProtein [Mass/Vol]8.0 g/dLNormal6.4-8.2 The [facility] CenterComment on above:Performed By: #### CMP, CRP ####[facility] Ypoqiteqmm[address] [place], [place] [address]Dr. Yilan Suresh Sodium [Moles/Vol]138 mmol/KZoepvi548-536Ncy [facility] CenterComment on above: Performed By: #### CMP, CRP ####[facility] Z[address]rodyk[address] [place] [address]Dr. Yilan ChangUrea nitrogen [Mass/Vol]29.0 mg/dL Critically high7.0-18.0The [facility] CenterComment on above:Performed By: #### CMP, CRP ####[facility] Pwv[address]gcdoe[address] [place] [address]Dr. Yilan ChangUrea nitrogen/Creatinine [Mass ratio]21.6 mg/mgNormalThe [facility]inckley HospitalComment on above:Performed By: #### CMP, CRP ####[facility] Wgkjrsjgbi[address] [place] [address]Dr. Yilan ChangSED RATE WESTERGRENon 08-87-1626FCI RATE88 mm/hrCritically high<=20The [facility] CenterComment on above:Performed By: #### SEDR ####[facility] C[address]fdswwsc[address] [place], [place] [address]Dr. Yilan ChangXR ELBOW RT MIN 3 VIEWSon 40-49-8877RL ELBOW RT MIN 3 [facility] CenterXR FOOT RT MIN 3 VIEWSon 35-48-6668BR FOOT RT MIN 3 [facility] CenterBASIC METABOLIC PANELon 78-13-4651Vfojv gap [Moles/Vol]14 mmol/LNormal 10-20The [facility] SystemComment on above:Performed By: #### CH8, CRP, MG ####[facility] IMFHZXEBCD1495 [place], [place], Calcium [Mass/Vol]9.1 mg/dLNormal8.4-10.4The [facility] SystemComment on above: Performed By: #### CH8, CRP, MG ####[facility] XRNLYPSRDW9693 [place], [address]Zfwhrbjm [Moles/Vol]104 mmol/CBxeutw71-133Bcw [facility] SystemComment on above:Performed By: #### CH8, CRP, MG ####[facility] JIKUNLPEAV8740 [place], [address]EG3 [Moles/Vol]27 mmol/ZVnsrnz38-34Qgp [facility] ShoreroHealth SystemComment on above:Performed By: #### MARSHALL, CRP, MG ####[facility] OAYAEBEUDV2473 [place], [address]Yfkfprzjhc [Mass/Vol]0.90 mg/dLNormal0.50-1.10The [facility] SystemComment on above:Performed By: #### MARSHALL, CRP, MG ####S PATHOLOGY TCZZFJKHJK4163 [place], [address]IRZGUCEMA GFR (CKD-EPI)80 mL/min/1.73sqmNormal>=60The [facility] SystemComment on above: Result Comment: 2020 CKD EPI [...] Inclusion of Race in Diagnosing Kidney Disease. AmericanJournal of Kidney Diseases 2021;79(2):268-88.e1. 2. N Engl J Med 1 Vol. 385 Issue 19 Pages 6502-7855Performed By: #### MARSHALL, CRP, MG ####S PATHOLOGY UREUJMRXAJ7661 [place], [place], Glucose [Mass/Vol]82 mg/gZOvfnct40-710Kxg [facility] SystemComment on above:Performed By: #### MARSHALL, CRP, MG ####[facility] XUUAZJDCRP6564 [place], [address]Axyrvwjmj [Moles/Vol]3.6 mmol/LNormal 3.3-5.3The [facility] SystemComment on above:Performed By: #### MARSHALL, CRP, MG ####[facility] HZUGDFYZDT7694 [place], [place], Sodium [Moles/Vol]141 mmol/YPhmlsg582-906Rnz [facility]biltHealth SystemComment on above: Performed By: #### MARSHALL, CRP, MG ####S PATHOLOGY DEPGMOVSTM[address] [place] [address], [address]Tfas nitrogen [Mass/Vol]18 mg/dLNormal8-22The [facility] VanderbiltHealth SystemComment on above:Performed By: #### CH8, CRP, MG ####[facility] PATHOLOGY GUDDYVLDPO[address] [place] [address], [address]L-WDDCBTIU PROTEINon 21-43-2114XBP6.8 mg/dLHigh<0.8The [facility] SystemComment on above: Performed By: #### CH8, CRP, MG ####[facility] PATHOLOGY QEGTSJYMQT[address] [place] [address], [address]CBT WITH DIFFERENTIALon 45-83-7878Vrcgxnofs (Bld) [#/Vol]0.11 10*3/uLNormal0.00-0.20The [facility] SystemComment on above: Performed By: #### CBCDSAT, ESR ####[facility] PATHOLOGY HYBMRSBPVR[address] [place] [address], [address]Nczzauahg/100 WBC (Bld)0.9 %Normal<=1.9The [facility] SystemComment on above:Performed By: #### CBCDSAT, ESR ####[facility] PATHOLOGY RCSWLEVSWH[address] [place] [address], [address]Ymktwucipgn (Bld) [#/Vol]0.23 10*3/uLNormal0.00-0.70The [facility] SystemComment on above: Performed By: #### CBCDSAT, ESR ####S PATHOLOGY ZNNLKZHEXI216[address] [place] [address], [address]Gojfdzwcmrt/100 WBC (Bld)1.9 %Normal0.1-4.0The [facility] SystemComment on above:Performed By: #### CBCDSAT, ESR ####S PATHOLOGY QESDGVURVV[address]06[address] [place] [address], [address]Yqzwkexlxqr distribution width (RBC) [Ratio]12.6 %Sqqiio53.5-14.5The [facility] Comment on above:Performed By: #### CBCDSAT, ESR ####[facility] DTDQGNEPPK[address] [place] [address], [address]Fcdljhvthm (Bld) [Volume fraction]37.9 %Ywgwpk65.0-46.0The [facility] ShoreroHealth SystemComment on above: Performed By: #### CBCDSAT, ESR ####[facility] PATHOLOGY QOQZGXHTHC4[address] [place] [address], [address]Euhiuwljrm (Bld) [Mass/Vol]12.6 g/dLNormal 12.0-15.0The [facility] Shorero[facility] SystemComment on above:Performed By: #### CBCDSAT, ESR ####[facility] PATHOLOGY QDRZLGLPFT[address] [place] [address], Lymphocytes (Bld) [#/Vol]3.20 10*3/uLNormal1.00-4.80The [facility] System Comment on above:Performed By: #### CBCDSAT, ESR ####[facility] PATHOLOGY VNBXPKCMAF[address] [place] [address], [address]Kszyqfqwnpl/100 WBC (Bld)26.2 %Efyiep88.0-44.0The [facility] SystemComment on above:Performed By: #### CBCDSAT, ESR ####[facility] PATHOLOGY SOBQCDYTNC[address] [place] [address], [address]FVX (RBC) [Entitic mass]30.1 xfOduvjx02.0-34.0The [facility] SystemComment on above:Performed By: #### CBCDSAT, ESR ####[facility] PATHOLOGY AFWYHJJILC[address]84[address] [place] [address], [address]OGWR (RBC) [Mass/Vol] 33.2 g/aPEqnaoc58.0-35.9The [facility] SystemComment on above:Performed By: #### CBCDSAT, ESR ####[facility] PATHOLOGY ZQHZJWFIUC3724[address] [place] [address], [address]CEX (RBC) [Entitic vol]91 sSOveyax49-841Xep [facility]ro[facility] Health [facility] System Comment on above:Performed By: #### CBCDSAT, ESR ####[facility] PATHOLOGY OOSKAOMUCE[address] [place] [address], [address]EBUCMXYA DISTRIBUTION DEMZR28Mfmq<=20The [facility] ShoreroHealth SystemComment on above:Performed By: #### RANDY, ESR ####[facility] PATHOLOGY KNYTPOJYYS[address] [place] [address], [address]Doturzufw (Bld) [#/Vol]0.62 10*3/uLNormal0.20-1.00The [facility]ro[facility] SystemComment on above:Performed By: #### CBCSAMYAT, ESR ####[facility] PATHOLOGY CRVJAZMMVL97[address] [place] [address], [address]Qwbfluymp/100 WBC (Bld) 5.1 %Normal2.0-11.0The [facility] ShoreroHealth SystemComment on above:Performed By: #### RANDY, ESR ####[facility] PATHOLOGY HWWNNENVDL4929[address] [place] [address], [address]Intwhtwzlau (Bld) [#/Vol]8.05 10*3/uLHigh1.50-8.00The [facility]bilt[facility] SystemComment on above:Performed By: #### CBCDINO, ESR ####[facility] PATHOLOGY WOWMLRYKJI[address] [place] [address], [address]Xuwfrynnzlt/100 WBC (Bld)66.0 %Rpoogx94.0-76.0The [facility] SystemComment on above:Performed By: #### RANDY, ESR ####[facility] PATHOLOG[facility] RPQLBCFMHU4401[address] [place] [address], [address]Doxyklje mean volume (Bld) [Entitic vol]7.3 fLLow7.5-11.2The [facility]bilt[facility] SystemComment on above:Performed By: #### CBCSAMYAT, ESR ####[facility] PATHOLOGY KVSIVRHIGY[address] [place] [address], [address]Wodqugngi (Bld) [#/Vol]380 10*3/lWFadpnu793-764Rvv [facility]bilt[facility] SystemComment on above: Performed By: #### CBCSAMYAT, ESR ####[facility] PATHOLOGY SWWPIQNAIP[address] [place] [address], [address]OVQ (Bld) [#/Vol]4.18 10*6/uLNormal4.00-5.20The [facility] SystemComment on above:Performed By: #### CBCDSAT, ESR ####[facility] YYHCQDWZDP2426 [place], [address]SXL (Bld) [#/Vol]12.2 10*3/uLHigh4.5-11.5The [facility] SystemComment on above:Performed By: #### CBCDSAT, ESR ####[facility] OZCEEVVJRC6569 [place], [address]DZ C-SPINE W/ CONTRASTon 69-08-8088RP C-SPINE W/ CONTRASTEXAMINATION: CT C-SPINE W/ CONTRAST 10/07/2022 04:29 AM CLINICAL HISTORY: cauda equina ASSOCIATED DIAGNOSIS: cauda equina ORDERING PROVIDER: NIKKO DING NOTE: COMPARISON: None TECHNIQUE: Thin isotropic axial images were obtained from the skull base to the upper thoracic spine without intravenous contrast. 2D sagittal and coronal reconstructions were obtained from the axialdata. Before infusion of intravenous contrast, radiology personnel [...] osteophytic bulging without neural foraminal narrowing. MACRO: NoneNormalThe [facility] ShoreroMer[facility] SystemCT Cervical spine W contrast [place] 56-16-0485XAWDPPHPUSE: CT C-SPINE W/ CONTRAST 10/07/2022 04:29 AM CLINICAL HISTORY: cauda equina ASSOCIATED DIAGNOSIS: cauda equina ORDERING PROVIDER: NKIKO KENDRICK TECHNKENNETH NOTE: COMPARISON: None TECHNIQUE: Thin isotropic axial images were obtained from the skull base to the upper thoracic spine without intravenous contrast. 2D sagittal and coronal reconstructions were obtained from the axialdata. Before infusion of intravenous contrast, radiology personnel [...] without neural foraminal narrowing. MACRO: None Kwaku Alexander MD - 10/07/2022 EXAMINATION: CT C-SPINE W/ CONTRAST 10/07/2022 04:29 AM CLINICAL HISTORY: cauda equina ASSOCIATED DIAGNOSIS: cauda equina ORDERING PROVIDER: NIKKO KENDRICK TECHNOLOGISTS NOTE: COMPARISON: None TECHNIQUE: Thin isotropic axial images were obtained from the skull base to the upper thoracic spine without intravenous contrast. 2D sagittal and coronal reconstructions were obtained from the axialdata. Before infusion of intravenous contrast, radiology personnel [...] bulging without neural foraminal narrowing. MACRO: None [facility] Cerv[facility] W contrast IVOrdered By: Kwaku Herman on 29-94-4716HivbmXagvwu Work Phone: ct T-SPINE/L-SPINE W/ CONTRASTon 93-42-1761RH T-SPINE/L-SPINE W/ CONTRASTEXAMINATION: CT T-SPINE/L-SPINE W/ CONTRAST 10/07/2022 04:29 AM [...] minimal diffuse disc bulge is noted at theL4-5 level resulting in mild effacement of the [...] central canal stenosis or nerve impingement. MACRO: [facility] SystemCT Thoracic and lumbar spine W contrast [place] 72-89-3499ROQYCKMFINV: CT T-SPINE/L-SPINE W/ CONTRAST 10/07/2022 04:29 AM [...] minimal diffuse disc bulge is noted at theL4-5 level resulting in mild effacement of the [...] canal stenosis or nerve impingement. MACRO: None Kwaku Alexander MD - 10/07/2022 EXAMINATION: CT T-SPINE/L-SPINE W/ [...] minimal diffuse disc bulge is noted at theL4-5 level resulting in mild effacement of the [...] canal stenosis or nerve impingement. MACRO: None [facility]roMer[facility]'S Medical CenterMetroHealthConsultson 50-91-4452Lyzwueqvfytgd Authentication Interface Message TextSPINE TRAUMA H AND P Patient Name: Addie [...] CT L spine myelogram in 2016 at [facility] significant for mild L4/5 foraminal stenosis. Antiplatelet/Anticoagulant: None PAST MEDICAL HISTORY: See above PAST [...] additional workup - Follow up with Dr. Bowling on an as needed basis Above plan was discussed with the (Chief) within 30 minutes of consult and discussed with the staff Dr. Car Clay MD Orthopaedic Surgery PGY3 While in-house, patient will be followed by Ortho Team A, please include ALL residents below in any Epic Chat communications: Ortho Trauma Team A: Courtney Jessica PGY1 ([phone]) Jacob Lo PGY3 ([phone]) After 5pm, weekends, and holidays please page Ortho consult pager, [phone] NormalThe [facility] SystemED Provider Noteson 02-46-3916Lpqpgwiqkehey Authentication Interface Message Text ED RESIDENT CONTINUATION [...] Ortho spine as OP. Plan: DC home IMPRESSION AND DISPOSITION Clinical Impression Diagnosis Comment Weakness of lower extremity, unspecified laterality [R29.898] Urinary incontinence, unspecified type [R32] Saddle anesthesia [R20.0] Type 2 diabetes mellitus with diabetic neuropathy, unspecified whether snf insulin use (HCC) [E11.40] Disposition: Home The [...] listed on the discharge paperwork. Kylee Brown, Rotating Resident, PGY-1NormalThe [facility] SystemERYTHROCYTE SEDIMENTATION RATEon 10-51-8670ESV (Bld) [Velocity]48 mm/hHigh<=30The [facility] System Comment on above:Performed By: #### CBCDSAT, ESR ####[facility] NPJICLJDXN7041 [place], [address]EQAJTDMCGdb 10-07-2022 Magnesium [Mass/Vol]1.4 mg/dLLow1.6-2.8The [facility] SystemComment on above: Performed By: #### CH8, CRP, MG ####[facility] UYVHZWGPPU7843 [place], [address]Xm Panel Informationon 03-25-0590Dmosijhmt Study observation (narrative)MetroHealthPROTHROMBIN TIME AND INRon 67-00-0667EQF Coag (PPP) [Relative time]1.12 {INR}High0.90-1.10The [facility] SystemComment on above:Performed By: #### PT #### [facility] [address] [place], [address]IM Coag (PPP) [Time]12.6 sNormal9.7-12.9The [facility] SystemComment on above:Performed By: #### PT #### [facility] [address] [place], [address]SFM Coag (PPP) [Relative time]1.12 {INR}High0.90 - 1.10 MetroHealthInterpretation and review of laboratory resultsAbnormalMetroHealthPT Coag (PPP) [Time]12.6 sMetroHealthMetroHealthTYPE AND SCREENon 33-85-1251DQS and Rh group Nom (Bld)Blood group A Rh(D) positiveMetroHealthABO and Rh group Nom (Bld)No Previous ResultsMetroHealthBlood group antibody screen QlNegative MetroHealthMetroHealthABO and Rh group Nom (Bld)Blood group A Rh(D) positive NormalThe [facility] SystemComment on above:Performed By: #### TS #### S PATHOLOGY LABORATORY [address] [place] [address], [address]ZVU and Rh group Nom (Bld)No Previous ResultsNormalThe [facility]Health SystemComment on above:Performed By: #### TS #### S PATHOLOGY LABORATORY [address] [place] [address], [address]CYRJ INTNegativeNormalThe [facility]Health SystemComment on above:Performed By: #### TS #### S PATHOLOGY LABORATORY [address] [place] [address], [address]Kzngo metabolic 2000 panelon 66-02-2352Xyqfo gap [Moles/Vol]14 mmol/L10 - 20MetroHealthCalcium [Mass/Vol]9.1 mg/dL8.4 - 10.4 mg/dLMetroHealthChloride [Moles/Vol]104 mmol/L97 - 111 mmol/LMetroHealthCO2 [Moles/Vol]27 mmol/L21 - 30 mmol/LMetroHealthCreatinine [Mass/Vol]0.90 mg/dL0.50 - 1.10 mg/dLMetroHealthGFR/1.73 sq M.predicted MDRD (S/P/Bld) [Vol rate/Area]80 mL/min/{1.73_m2}- PINFMetroHealthComment on above:2020 CKD EPI Equation using Creatinine without Race [...] Inclusion of Race in Diagnosing Kidney Disease. AmericanJournal of Kidney Diseases 2021;79(2):268-88.e1. 2. N Engl J Med 1 Vol. 385 Issue 19 Pages 8129-6524 Glucose [Mass/Vol]82 mg/dL68 - 110 mg/dLMetroHealthInterpretation and review of laboratory resultsNormalMetroHealthPotassium [Moles/Vol]3.6 mmol/L3.3 - 5.3 mmol/LMetroHealthSodium [Moles/Vol]141 mmol/L135 - 148 mmol/LMetroHealthUrea nitrogen [Mass/Vol]18 mg/dL8 - 22 mg/dLMetroHealthC-REACTIVE PROTEINon 35-39-2631NPU [Mass/Vol]0.8 mg/dLHighNINF - 0.8 mg/dLMetroHealthCBC WITH DIFFERENTIALon 39-78-2297Evjojttcj (Bld) [#/Vol]0.11 10*3/uL0.00 - 0.20 K/uL MetroHealthBasophils/100 WBC (Bld)0.9 %NINF - 1.9 %MetroHealthEosinophils (Bld) [#/Vol]0.23 10*3/uL0.00 - 0.70 K/uLMetroHealthEosinophils/100 WBC (Bld)1.9 %0.1 - 4.0 %MetroHealthErythrocyte distribution width (RBC) [Ratio]12.6 %11.5 - 14.5 %MetroHealthHematocrit (Bld) [Volume fraction]37.9 %36.0 - 46.0 %[facility] Hemoglobin (Bld) [Mass/Vol]12.6 g/dL12.0 - 15.0 g/dLMetroHealthInterpretation and review of laboratory resultsAbnormalMetroHealthLymphocytes (Bld) [#/Vol]3.20 10*3/uL1.00 - 4.80 K/uLMetroHealthLymphocytes/100 WBC (Bld)26.2 %24.0 - 44.0 % MetroHealthMCH (RBC) [Entitic mass]30.1 pg26.0 - 34.0 pgMetroHealthMCHC (RBC) [Mass/Vol]33.2 g/dL32.0 - 35.9 g/dLMetroHealthMCV (RBC) [Entitic vol]91 fL80 - 100 fLMetroHealthMonocyte distribution width Auto (Bld) [Entitic vol]21HighNINF - 20MetroHealthMonocytes (Bld) [#/Vol]0.62 10*3/uL0.20 - 1.00 K/uLMetroHealth Monocytes/100 WBC (Bld)5.1 %2.0 - 11.0 %MetroHealthNeutrophils (Bld) [#/Vol]8.05 10*3/uLHigh1.50 - 8.00 K/uLMetroHealthNeutrophils/100 WBC (Bld)66.0 %31.0 - 76.0 %MetroHealthPlatelet mean volume (Bld) [Entitic vol]7.3 fLLow7.5 - 11.2 fL MetroHealthPlatelets (Bld) [#/Vol]380 10*3/uL150 - 400 K/uLMetroHealthRBC (Bld) [#/Vol]4.18 10*6/uLMetroHealthWBC (Bld) [#/Vol]12.2 10*3/uLHigh4.5 - 11.5 K/uL MetroHealthMetroHealthCHEMISTRYOrdered By: SYSTEM SYSTEM on 06-30-9924Klutter [Mass/Vol]3.5 g/dLNormal3.3 - 5.0 gm/dLFTMC RemisolAlbumin/Globulin [Mass ratio] 0.9 {ratio}Low1.1 - 2.2FTMC RemisolALP [Catalytic activity/Vol]94 [iU]/eGarapx34 - 98 Int._Unit/LFTMC RemisolALT No additional P-5'-P [Catalytic activity/Vol]12 [iU]/dNormal6 - 46 Int._Unit/LFTMC RemisolAnion gap [Moles/Vol]15 mmol/LNormal6 - 16 mEq/LFTMC RemisolAST [Catalytic activity/Vol]14 [iU]/dNormal5 - 43 Int._Unit/LFTMC RemisolBilirubin [Mass/Vol]0.5 mg/dLNormal0.0 - 1.1 mg/dLFTMC RemisolCalcium [Mass/Vol]9.0 mg/dLNormal8.9 - 11.1 mg/dLFTMC RemisolChloride [Moles/Vol]102 mmol/FCfsbwa169 - 111 mmol/LFTMC RemisolCO2 [Moles/Vol]24 mmol/L Yrofbg10 - 31 mmol/LFTMC RemisolCreatinine [Mass/Vol]1.0 mg/dLNormal0.5 - 1.3 mg/dLFTMC RemisolGFR/1.73 sq M.predicted among non-blacks MDRD (S/P/Bld) [Vol rate/Area]71 mL/min/1.73 x4Icnuke>=59mL/min/1.73 m2FT Chem SGlobulin (S) [Mass/Vol]3.8 g/dLNormal1.4 - 4.0 gm/dLFT RemisolGlucose [Mass/Vol]223 mg/dL High55 - 199 mg/dLFT RemisolPotassium [Moles/Vol]3.7 mmol/LNormal3.5 - 5.3 mmol/LFTMC RemisolProtein [Mass/Vol]7.3 g/dLNormal6.0 - 7.8 gm/dLFT Remisol Sodium [Moles/Vol]137 mmol/RXqaeby883 - 145 mmol/LFTMC RemisolUrea nitrogen [Mass/Vol]20 mg/dLNormal5 - 21 mg/dLPOST [facility] [place] RemisolUrea nitrogen/Creatinine [Mass ratio]20 mg/ukDlzjlj29 - 20FT RemisolCHEMISTRYOrdered By: Lab ROPUser on 21-44-4799Oulczrn [Mass/Vol]229 mg/pCYvnh00 - 99 mg/dLPOST [facility] [place] POC SubsectionComment on above:Result Comment: Notified RN/YESSY Device [id number] Interpretation CodeFT POC SubsectionPOC User [id number] Interpretation CodeFT POC SubsectionPOC UsernameReynold BURCIAGAid Interpretation Code FT POC SubsectionED Provider Noteson [id number] Authentication Interface Message Text Attestation with edits by Jocelyn Bowen MD at 10/07/2022 5:51 PM ATTENDING NOTE Patient transferred for MRI for concern cauda equina. Signed out at 2300 awaiting spine eval and discussion with or Yohobuys regarding device compatibility. I saw and evaluated the patient. I personally obtained the mckinnon and critical portions of the history and physical exam. I reviewed the resident's documentation and discussed the patient with the resident. I agree with the resident's medical decision making as documented in the resident's note. Jocelyn Bowen MD EMERGENCY DEPARTMENT - VISIT NOTE HISTORY OF PRESENT ILLNESS Chief Complaint Patient presents with Chart Transfer from [facility] for MRI Instructional Technology Coordinator: not needed - patient preferred language is Stateless. The history is provided by the Patient. Addie Jean Baptiste is a 47 year old female PMH DM2 c/b severe diabetic neuropathy, retention, hypothyroidism, bipolar presenting to the ED for lower extremity weakness and incontinence. Patient was transferred from [facility] for concerns of cauda equina syndrome. Patient [...] to CT myelogram Discussion with External Provider: Freezer Person from spine service recommends MRI or CT myelogram. Negative CT myelogram - recommend to follow up outpatient Discussion with External Provider: Freezer Person from IR service recommends CT myelogram as cardiology cannot interrogate pacemaker due to another emergent procedure. Secondary Considerations / Diagnoses Addressed During this Visit: DM assessed and could be contributing to patient's weakness from neuropathy. Evaluated (more content not included)...NormalThe [facility]Health SystemERYTHROCYTE SEDIMENTATION RATEon 55-86-8451CPA (Bld) [Velocity]48 mm/hHCentral Park Hospital Interpretation and review of laboratory resultsAbnormalMetroKettering Health – [facility] HEMATOLOGYOrdered By: SYSTEM SYSTEM on 15-45-5958Qssjqxuff/100 WBC (Bld)0.5 % Normal0.0 - 2.0 %[facility] HemeAutoSSBasophils/Leukocytes Auto (Bld) [Pure # fraction]0.1 E9/LNormal0.0 - 0.2 E9/LFTMC HemeAutoSSEosinophils/100 WBC (Bld)1.1 %Normal0.0 - 8.0 %[facility] HemeAutoSSEosinophils/Leukocytes Auto (Bld) [Pure # fraction]0.1 E9/LNormal0.0 - 0.5 E9/LFTMC HemeAutoSSLymphocytes/100 WBC (Bld) 16.5 %Irhjwr82.0 - 50.0 %FTMC HemeAutoSSLymphocytes/Leukocytes Auto (Bld) [Pure # fraction]1.9 E9/LNormal1.0 - 4.0 E9/LFTMC HemeAutoSSMonocytes/100 WBC (Bld)4.7 %Normal4.0 - 14.0 %[facility] HemeAutoSSMonocytes/Leukocytes Auto (Bld) [Pure # fraction]0.6 E9/LNormal0.2 - 1.0 E9/LFTMC HemeAutoSSNeutrophils/100 WBC (Bld) 77.2 %High36.0 - 75.0 %[facility] HemeAutoSSNeutrophils/Leukocytes Auto (Bld) [Pure # fraction]9.1 E9/LHigh2.0 - 7.5 E9/LFTMC HemeAutoSSHEMATOLOGYOrdered By: Yolie Cuellar on 18-56-9620Xgfruvokzxq distribution width (RBC) [Ratio]12.6 %Lpxiqb09.9 - 14.2 %FTMC HemeAutoSSHematocrit (Bld) [Volume fraction]37.9 %Iesikt05.0 - 46.0 %[facility] HemeAutoSSHemoglobin (Bld) [Mass/Vol]12.7 g/hWYkqnzb10.0 - 16.0 gm/dLFTMC HemeAutoSSMCH (RBC) [Entitic mass]30.3 cvCemfkg44.0 - 34.0 pgFTMC HemeAutoSSMCHC (RBC) [Mass/Vol]33.5 g/kFCakgbj11.4 - 36.0 gm/dLFTMC HemeAutoSSMCV (RBC) [Entitic vol]90.5 nIKzhxpk30.0 - 100.0 fLFTMC HemeAutoSSPlatelet mean volume (Bld) [Entitic vol]6.8 fLNormal6.4 - 10.8 fLFTMC HemeAutoSSPlatelets (Bld) [#/Vol]332.0 E9/PEbulsr701.0 - 500.0 E9/LFTMC HemeAutoSSRBC (Bld) [#/Vol]4.2 E12/LLow4.3 - 5.9 E12/LFTMC HemeAutoSSWBC corrected for nucl RBC Auto (Bld) [#/Vol]11.8 E9/LHigh4.0 - 11.0 E9/LFTMC HemeAutoSSMAGNESIUMon 10-06-2022 Magnesium [Mass/Vol]1.4 mg/dLLow1.6 - 2.8 mg/dLMetroHealthNo Panel Informationon 47-08-7357Ossqaoatsjtzcr and review of laboratory resultsAbnormalMetroHealth MetroHealthXR KUB 1 VIEWon [id number] KUB 1 [facility] CHEMISTRYOrdered By: Desi Lord on 11-50-3891Rixhnxf [Mass/Vol]166 mg/iXFdis28 - 99 mg/dLFTMC POC SubsectionComment on above:Result Comment: Notified RN/MDPOC Device [id number] Interpretation CodeFTMC POC SubsectionPOC User ID [id number] Interpretation CodeFTMC POC SubsectionPOC UsernameBMichi millsInvalid Interpretation CodeFTMC POC SubsectionGlucose [Mass/Vol]172 mg/dL High55 - 99 mg/dLFTMC POC SubsectionComment on above:Result Comment: Notified RN/MDPOC Device [id number] Interpretation CodeFTMC POC SubsectionPOC User [id number] Interpretation CodeFTMC POC SubsectionPOC Username Michi HuynhInvalid Interpretation CodeFTMC POC SubsectionCHEMISTRYOrdered By: SYSTEM SYSTEM on 52-14-7736Bnirc gap [Moles/Vol]10 mmol/LNormal6 - 16 mEq/L [facility] RemisolChloride [Moles/Vol]105 mmol/JUhlvte456 - 111 mmol/LFTMC RemisolCO2 [Moles/Vol]27 mmol/RKynico93 - 31 mmol/LFTMC RemisolPotassium [Moles/Vol]4.8 mmol/LNormal3.5 - 5.3 mmol/LFTMC RemisolSodium [Moles/Vol]137 mmol/VBdcrdm782 - 145 mmol/LFTMC RemisolCHEMISTRYOrdered By: Lab Pop on 01-37-8084Zovdust [Mass/Vol]219 mg/oUYqsz03 - 99 mg/dLFTMC POC SubsectionComment on above:Result Comment: Cleaned MeterPOC Device [id number] Interpretation CodeFTMC POC SubsectionPOC User [id number] Interpretation CodeFTMC POC Subsection POC UsernameFCIERA CHISHOLMMARLEYInvalid Interpretation CodeFTMC POC SubsectionCHEMISTRY Ordered By: Elizabeth Vinson on 90-76-0537MrY1g (Bld) [Mass fraction]9.4 %High<=5.9% [facility] ChemAutoSSCHEMISTRYOrdered By: SYSTEM SYSTEM on 94-36-7004Siyte gap [Moles/Vol]8 mmol/LNormal6 - 16 mEq/LFTMC RemisolCalcium [Mass/Vol]8.0 mg/dLLow 8.9 - 11.1 mg/dLFTMC RemisolChloride [Moles/Vol]108 mmol/AFjvwle446 - 111 mmol/L [facility] RemisolCO2 [Moles/Vol]26 mmol/YTdlzzw79 - 31 mmol/LFTMC RemisolCreatinine [Mass/Vol]1.1 mg/dLNormal0.5 - 1.3 mg/dLFTMC RemisolGFR/1.73 sq M.predicted among blacks MDRD (S/P/Bld) [Vol rate/Area]mL/min/1.73 f7Mnsovd>=59mL/min/1.73 m2FT[facility] Chem SGFR/1.73 sq M.predicted among non-blacks MDRD (S/P/Bld) [Vol rate/Area]54 mL/min/1.73 m2Low>=59mL/min/1.73 m2FT[facility] Chem SGlucose [Mass/Vol]152 mg/kKGviaut24 - 199 mg/dLFTMC RemisolPotassium [Moles/Vol]4.2 mmol/LNormal3.5 - 5.3 mmol/LFTMC RemisolSodium [Moles/Vol]138 mmol/HWxalwp619 - 145 mmol/LFTMC RemisolUrea nitrogen [Mass/Vol]27 mg/dLHigh5 - 21 mg/dLFTMC RemisolUrea nitrogen/Creatinine [Mass ratio]24 mg/nuHqyl29 - 20FT[facility] RemisolHEMATOLOGYOrdered By: CYPHER SYSTEM on 09-46-2802Oeunsjvbl/100 WBC (Bld)0.8 %Normal0.0 - 2.0 %[facility] HemeAutoSSBasophils/Leukocytes Auto (Bld) [Pure # fraction]0.1 E9/LNormal0.0 - 0.2 E9/LFTMC HemeAutoSSEosinophils/100 WBC (Bld)2.3 %Normal0.0 - 8.0 %[facility] HemeAutoSSEosinophils/Leukocytes Auto (Bld) [Pure # fraction]0.2 E9/LNormal0.0 - 0.5 E9/LFTMC HemeAutoSSLymphocytes/100 WBC (Bld)29.8 %Ffzelo47.0 - 50.0 %[facility] HemeAutoSSLymphocytes/Leukocytes Auto (Bld) [Pure # fraction]2.4 E9/LNormal1.0 - 4.0 E9/LFTMC HemeAutoSSMonocytes/100 WBC (Bld)6.7 %Normal4.0 - 14.0 %[facility] HemeAutoSSMonocytes/Leukocytes Auto (Bld) [Pure # fraction]0.5 E9/LNormal0.2 - 1.0 E9/LFTMC HemeAutoSSNeutrophils/100 WBC (Bld)60.4 %Wvmurg30.0 - 75.0 %[facility] HemeAutoSSNeutrophils/Leukocytes Auto (Bld) [Pure # fraction]4.8 E9/LNormal2.0 - 7.5 E9/LFTMC HemeAutoSSHEMATOLOGYOrdered By: Mansi Cortez on 09-14-2022 Erythrocyte distribution width (RBC) [Ratio]13.3 %Kyawiz35.9 - 14.2 %[facility] HemeAutoSSHematocrit (Bld) [Volume fraction]32.5 %Low34.0 - 46.0 %[facility] HemeAutoSSHemoglobin (Bld) [Mass/Vol]10.9 g/dLLow12.0 - 16.0 gm/dLFTMC HemeAutoSSMCH (RBC) [Entitic mass]31.0 mpTbbcce10.0 - 34.0 pgFTMC HemeAutoSSMCHC (RBC) [Mass/Vol]33.6 g/sUJoaxhc12.4 - 36.0 gm/dLFTMC HemeAutoSSMCV (RBC) [Entitic vol]92.3 dKTpmtbw39.0 - 100.0 fLFTMC HemeAutoSSPlatelet mean volume (Bld) [Entitic vol]7.0 fLNormal6.4 - 10.8 fLFTMC HemeAutoSSPlatelets (Bld) [#/Vol]325.0 E9/ZQpykgn187.0 - 500.0 E9/LFTMC HemeAutoSSRBC (Bld) [#/Vol]3.5 E12/LLow4.3 - 5.9 E12/LFTMC HemeAutoSSWBC corrected for nucl RBC Auto (Bld) [#/Vol]8.0 E9/LNormal4.0 - 11.0 E9/LFTMC HemeAutoSSCHEMISTRYOrdered By: SYSTEM SYSTEM on 17-85-8771Qbifv gap [Moles/Vol]11 mmol/LNormal6 - 16 mEq/LFTMC Remisol Calcium [Mass/Vol]8.3 mg/dLLow8.9 - 11.1 mg/dLFTMC RemisolChloride [Moles/Vol] 105 mmol/CFuijgd547 - 111 mmol/LFTMC RemisolCK [Catalytic activity/Vol]43 [iU]/d Fiqvdu28 - 261 Int._Unit/LFTMC RemisolCO2 [Moles/Vol]25 mmol/AIbqkoj05 - 31 mmol/LFTMC RemisolCreatinine [Mass/Vol]1.3 mg/dLNormal0.5 - 1.3 mg/dLFTMC RemisolGFR/1.73 sq M.predicted among blacks MDRD (S/P/Bld) [Vol rate/Area]54 mL/min/1.73 m2Low>=59mL/min/1.73 m2FT[facility] Chem SGFR/1.73 sq M.predicted among non- blacks MDRD (S/P/Bld) [Vol rate/Area]44 mL/min/1.73 m2Low>=59mL/min/1.73 m2FT[facility] Chem SGlucose [Mass/Vol]98 mg/wJTdybkz12 - 199 mg/dLFTMC RemisolPotassium [Moles/Vol]4.3 mmol/LNormal3.5 - 5.3 mmol/LFTMC RemisolSodium [Moles/Vol]137 mmol/LIcjzpv831 - 145 mmol/LFTMC RemisolUrea nitrogen [Mass/Vol]26 mg/dLHigh5 - 21 mg/dLFTMC RemisolUrea nitrogen/Creatinine [Mass ratio]20 mg/uxBpguwz80 - 20 [facility] RemisolLactate [Mass/Vol]1.0 mmol/LNormal0.5 - 2.2 mmol/LFTMC Remisol HEMATOLOGYOrdered By: CYPHER SYSTEM on 18-64-3947Mectwnjpe/100 WBC (Bld)0.4 % Normal0.0 - 2.0 %[facility] HemeAutoSSBasophils/Leukocytes Auto (Bld) [Pure # fraction]0.0 E9/LNormal0.0 - 0.2 E9/LFTMC HemeAutoSSEosinophils/100 WBC (Bld)1.1 %Normal0.0 - 8.0 %[facility] HemeAutoSSEosinophils/Leukocytes Auto (Bld) [Pure # fraction]0.1 E9/LNormal0.0 - 0.5 E9/LFTMC HemeAutoSSLymphocytes/100 WBC (Bld) 17.6 %Frluvi41.0 - 50.0 %[facility] HemeAutoSSLymphocytes/Leukocytes Auto (Bld) [Pure # fraction]1.6 E9/LNormal1.0 - 4.0 E9/LFTMC HemeAutoSSMonocytes/100 WBC (Bld)6.2 %Normal4.0 - 14.0 %[facility] HemeAutoSSMonocytes/Leukocytes Auto (Bld) [Pure # fraction]0.6 E9/LNormal0.2 - 1.0 E9/LFTMC HemeAutoSSNeutrophils/100 WBC (Bld) 74.7 %Hfqxnt20.0 - 75.0 %[facility] HemeAutoSSNeutrophils/Leukocytes Auto (Bld) [Pure # fraction]6.9 E9/LNormal2.0 - 7.5 E9/LFTMC HemeAutoSSHEMATOLOGYOrdered By: Mansi Cortez on 45-31-8670Flzummiodbh distribution width (RBC) [Ratio]13.5 % Shtfrs87.9 - 14.2 %[facility] HemeAutoSSHematocrit (Bld) [Volume fraction]32.0 %Low 34.0 - 46.0 %[facility] HemeAutoSSHemoglobin (Bld) [Mass/Vol]10.8 g/dLLow12.0 - 16.0 gm/dLFTMC HemeAutoSSMCH (RBC) [Entitic mass]30.7 qiVshstx59.0 - 34.0 pgFTMC HemeAutoSSMCHC (RBC) [Mass/Vol]33.7 g/wJVcwfkk78.4 - 36.0 gm/dLFTMC HemeAutoSS MCV (RBC) [Entitic vol]91.1 cUIshytv02.0 - 100.0 fLFTMC HemeAutoSSPlatelet mean volume (Bld) [Entitic vol]7.0 fLNormal6.4 - 10.8 fLFTMC HemeAutoSSPlatelets (Bld) [#/Vol]335.0 E9/TWgztzv808.0 - 500.0 E9/LFTMC HemeAutoSSRBC (Bld) [#/Vol] 3.5 E12/LLow4.3 - 5.9 E12/LFTMC HemeAutoSSWBC corrected for nucl RBC Auto (Bld) [#/Vol]9.3 E9/LNormal4.0 - 11.0 E9/LFT[facility] HemeAutoSSCHEMISTRYOrdered By: SYSTEM SYSTEM on 88-98-1864Vepywey [Mass/Vol]3.5 g/dLNormal3.3 - 5.0 gm/dLFTMC Remisol Albumin/Globulin [Mass ratio]1.0 {ratio}Low1.1 - 2.2[facility] RemisolALP [Catalytic activity/Vol]98 [iU]/qKnlitz51 - 98 Int._Unit/LFTMC RemisolALT No additional P-5'-P [Catalytic activity/Vol]12 [iU]/dNormal6 - 46 Int._Unit/LFTMC RemisolAST [Catalytic activity/Vol]12 [iU]/dNormal5 - 43 Int._Unit/LFTMC RemisolBilirubin [Mass/Vol]0.7 mg/dLNormal0.0 - 1.1 mg/dLFTMC RemisolCalcium [Mass/Vol]9.0 mg/dL Normal8.9 - 11.1 mg/dLFTMC RemisolCreatinine [Mass/Vol]0.9 mg/dLNormal0.5 - 1.3 mg/dLFTMC RemisolGFR/1.73 sq M.predicted among blacks MDRD (S/P/Bld) [Vol rate/Area]mL/min/1.73 b9Eelavi>=59mL/min/1.73 m2FT Chem SGFR/1.73 sq M.predicted among non-blacks MDRD (S/P/Bld) [Vol rate/Area]mL/min/1.73 r6Nnqoey >=59mL/min/1.73 m2FT Chem SGlobulin (S) [Mass/Vol]3.6 g/dLNormal1.4 - 4.0 gm/dLFTMC RemisolGlucose [Mass/Vol]405 mg/pLJsii91 - 199 mg/dLFT Remisol Lactate [Mass/Vol]1.2 mmol/LNormal0.5 - 2.2 mmol/LFTMC RemisolProtein [Mass/Vol] 7.1 g/dLNormal6.0 - 7.8 gm/dLFTMC RemisolTroponin I.cardiac [Mass/Vol]5.20 pg/mL Low10.10 - 27.10 pg/mLFT RemisolUrea nitrogen [Mass/Vol]22 mg/dLHigh5 - 21 mg/dLFTMC RemisolUrea nitrogen/Creatinine [Mass ratio]24 mg/wzWhec12 - 20[facility] [place] RemisolCOAGULATIONOrdered By: Glynn Bryant on 27-44-0980lAZM Coag (PPP) [Time] 31.1 xXqzaec94.1 - 36.5 second(s)[facility] [place] Auto CoagINR Coag (PPP) [Relative time]1.0 {INR}Invalid Interpretation CodeFT Auto CoagPT Coag (PPP) [Time]11.7 sNormal 9.4 - 12.5 second(s)[facility] [place] Auto CoagGlucose Glucometer (BldC) [Mass/Vol]Ordered By: Shameka Romero on 78-03-3949Uaoikob [Mass/Vol]459 mg/dLMercy Health St. Elizabeth Boardman HospitalComment on above:Random Glucose Reference Range is dependent on time and content of last meal. Glucose of more than 200 mg/dL in a nonstressed, ambulatory subject supports the diagnosis of Diabetes Mellitus. HEMATOLOGYOrdered By: SYSTEM SYSTEM on 04-61-3772Wuygqcyfe/100 WBC (Bld)1.0 % Normal0.0 - 2.0 %[facility] HemeAutoSSBasophils/Leukocytes Auto (Bld) [Pure # fraction]0.1 E9/LNormal0.0 - 0.2 E9/LFTMC HemeAutoSSEosinophils/100 WBC (Bld)1.5 %Normal0.0 - 8.0 %[facility] HemeAutoSSEosinophils/Leukocytes Auto (Bld) [Pure # fraction]0.1 E9/LNormal0.0 - 0.5 E9/LFTMC HemeAutoSSLymphocytes/100 WBC (Bld) 21.4 %Ofwtog09.0 - 50.0 %[facility] HemeAutoSSLymphocytes/Leukocytes Auto (Bld) [Pure # fraction]2.1 E9/LNormal1.0 - 4.0 E9/LFT[facility] HemeAutoSSMonocytes/100 WBC (Bld)4.8 %Normal4.0 - 14.0 %[facility] HemeAutoSSMonocytes/Leukocytes Auto (Bld) [Pure # fraction]0.5 E9/LNormal0.2 - 1.0 E9/LFTMC HemeAutoSSNeutrophils/100 WBC (Bld) 71.3 %Kriyva78.0 - 75.0 %[facility] HemeAutoSSNeutrophils/Leukocytes Auto (Bld) [Pure # fraction]7.1 E9/LNormal2.0 - 7.5 E9/LFTMC HemeAutoSSHEMATOLOGYOrdered By: Mansi Cortez on 43-04-2008Kffxffdejvs distribution width (RBC) [Ratio]13.5 % Bpeodc09.9 - 14.2 %[facility] HemeAutoSSHematocrit (Bld) [Volume fraction]35.4 %Normal 34.0 - 46.0 %[facility] HemeAutoSSHemoglobin (Bld) [Mass/Vol]11.7 g/dLLow12.0 - 16.0 gm/dLFTMC HemeAutoSSMCH (RBC) [Entitic mass]30.5 heZomuno56.0 - 34.0 pgFTMC HemeAutoSSMCHC (RBC) [Mass/Vol]33.0 g/iRZntcuh99.4 - 36.0 gm/dLFTMC HemeAutoSS MCV (RBC) [Entitic vol]92.4 bOPejgbx01.0 - 100.0 fLFT HemeAutoSSPlatelet mean volume (Bld) [Entitic vol]6.9 fLNormal6.4 - 10.8 fLPOST [facility] [place] HemeAutoSSPlatelets (Bld) [#/Vol]317.0 E9/FKhtyiu203.0 - 500.0 E9/[facility] HemeAutoSSRBC (Bld) [#/Vol] 3.8 E12/LLow4.3 - 5.9 E12/[facility] HemeAutoSSWBC corrected for nucl RBC Auto (Bld) [#/Vol]9.9 E9/LNormal4.0 - 11.0 E9/[facility] HemeAutoSSNo Panel InformationOrdered By: ANGPROCESSSERVER MICROBIOLOGY on 84-54-4428Qhvzg Culture CharcoalNo growth at 3 days. Final to follow at 7 days.[facility] CenterBlood Culture CharcoalNo growth at 3 days. Final to follow at 7 days.[facility] CenterNo Panel InformationOrdered By: Shameka Romero on 31-58-2646Egnrhom Glucose #[address]/[facility] HospitalBedside Glucose CommentGlu2: cleaned [facility] HospitalCHEMISTRY Ordered By: SYSTEM SYSTEM on 10-22-3127Kkhfvkp [Mass/Vol]3.9 g/dLNormal3.3 - 5.0 gm/dLFTMC RemisolAlbumin/Globulin [Mass ratio]1.0 {ratio}Low1.1 - 2.2FT[facility] RemisolALP [Catalytic activity/Vol]101 [iU]/dHigh21 - 98 Int._Unit/LFTMC Remisol ALT No additional P-5'-P [Catalytic activity/Vol]12 [iU]/dNormal6 - 46 Int._Unit/LFTMC RemisolAnion gap [Moles/Vol]16 mmol/LNormal6 - 16 mEq/LFT[facility] RemisolAST [Catalytic activity/Vol]15 [iU]/dNormal5 - 43 Int._Unit/LFTMC Remisol Bilirubin [Mass/Vol]0.7 mg/dLNormal0.0 - 1.1 mg/dLFTMC RemisolCalcium [Mass/Vol] 9.5 mg/dLNormal8.9 - 11.1 mg/dLFTMC RemisolChloride [Moles/Vol]102 mmol/LNormal 101 - 111 mmol/LFTMC RemisolCO2 [Moles/Vol]22 mmol/CBwmcsn74 - 31 mmol/LFTMC RemisolCreatinine [Mass/Vol]1.0 mg/dLNormal0.5 - 1.3 mg/dLFTMC RemisolGFR/1.73 sq M.predicted among blacks MDRD (S/P/Bld) [Vol rate/Area]mL/min/1.73 s0Jnagat >=59mL/min/1.73 m2[facility] Chem SGFR/1.73 sq M.predicted among non-blacks MDRD (S/P/Bld) [Vol rate/Area]60 mL/min/1.73 d0Prmwvg>=59mL/min/1.73 m2[facility] Chem S Globulin (S) [Mass/Vol]3.9 g/dLNormal1.4 - 4.0 gm/dLFTMC RemisolGlucose [Mass/Vol]178 mg/xLWxykhy29 - 199 mg/dLFTMC RemisolPotassium [Moles/Vol]3.7 mmol/LNormal3.5 - 5.3 mmol/LFTMC RemisolProtein [Mass/Vol]7.8 g/dLNormal6.0 - 7.8 gm/dLFTMC RemisolSodium [Moles/Vol]136 mmol/YXbjzeg446 - 145 mmol/LFTMC RemisolUrea nitrogen [Mass/Vol]17 mg/dLNormal5 - 21 mg/dLFTMC RemisolUrea nitrogen/Creatinine [Mass ratio]17 mg/wwKhjlkp61 - 20FT[facility] RemisolHEMATOLOGY Ordered By: SYSTEM SYSTEM on 37-53-4812Kjhmecpcd/100 WBC (Bld)1.0 %Normal0.0 - 2.0 %[facility] HemeAutoSSBasophils/Leukocytes Auto (Bld) [Pure # fraction]0.1 E9/L Normal0.0 - 0.2 E9/LFTMC HemeAutoSSEosinophils/100 WBC (Bld)1.2 %Normal0.0 - 8.0 %[facility] HemeAutoSSEosinophils/Leukocytes Auto (Bld) [Pure # fraction]0.1 E9/L Normal0.0 - 0.5 E9/LFTMC HemeAutoSSLymphocytes/100 WBC (Bld)20.1 %Qtcyxu65.0 - 50.0 %[facility] HemeAutoSSLymphocytes/Leukocytes Auto (Bld) [Pure # fraction]2.1 E9/L Normal1.0 - 4.0 E9/LFTMC HemeAutoSSMonocytes/100 WBC (Bld)4.6 %Normal4.0 - 14.0 %[facility] HemeAutoSSMonocytes/Leukocytes Auto (Bld) [Pure # fraction]0.5 E9/LNormal 0.2 - 1.0 E9/LFTMC HemeAutoSSNeutrophils/100 WBC (Bld)73.1 %Oiqenm49.0 - 75.0 % [facility] HemeAutoSSNeutrophils/Leukocytes Auto (Bld) [Pure # fraction]7.7 E9/LHigh 2.0 - 7.5 E9/LFTMC HemeAutoSSHEMATOLOGYOrdered By: Mansi Cortez on 08-29-2022 Erythrocyte distribution width (RBC) [Ratio]14.1 %Nfujbw33.9 - 14.2 %[facility] HemeAutoSSHematocrit (Bld) [Volume fraction]37.6 %Espqfc84.0 - 46.0 %[facility] HemeAutoSSHemoglobin (Bld) [Mass/Vol]12.4 g/kFEcdxsq26.0 - 16.0 gm/dLFTMC HemeAutoSSMCH (RBC) [Entitic mass]30.4 clOewflz52.0 - 34.0 pgFTMC HemeAutoSSMCHC (RBC) [Mass/Vol]33.0 g/nQNtjrey23.4 - 36.0 gm/dLPOST [facility] [place] HemeAutoSSMCV (RBC) [Entitic vol]92.1 uIZqcorb93.0 - 100.0 [facility] HemeAutoSSPlatelet mean volume (Bld) [Entitic vol]7.0 fLNormal6.4 - 10.8 [facility] HemeAutoSSPlatelets (Bld) [#/Vol]446.0 E9/DRtwivh307.0 - 500.0 E9/[facility] HemeAutoSSRBC (Bld) [#/Vol]4.1 E12/LLow4.3 - 5.9 E12/[facility] HemeAutoSSWBC corrected for nucl RBC Auto (Bld) [#/Vol]10.5 E9/LNormal4.0 - 11.0 E9/[facility] HemeAutoSSCalcium [Mass/volume] in Serum or PlasmaOrdered By: Jeana Martini on 41-66-7548Unfuitf [Mass/Vol]8.1 mg/dL8.6-10.3FCleveland Clinic Akron GeneralCarbon dioxide, total [Moles/volume] in Serum or PlasmaOrdered By: Jeana Martini on 29-80-8649BI7 [Moles/Vol]25.9 mmol/L21.0-31.0[facility] HospitalChloride [Moles/volume] in Serum or PlasmaOrdered By: Jeana Martini on 13-32-6282Zqtywtof [Moles/Vol]111 mmol/C82-499KldmxndulMercy Health St. Elizabeth Boardman HospitalCreatinine [Mass/volume] in Serum or PlasmaOrdered By: Jeana Martini on 08-22-2022 Creatinine [Mass/Vol]1.22 mg/dL0.60-1.20[facility] HospitalGlucose Glucometer (BldC) [Mass/Vol]Ordered By: Jeana Martini on 85-13-7358Qkzkxwj [Mass/Vol]207 mg/dLMercy Health St. Elizabeth Boardman HospitalComment on above:Random Glucose Reference Range is dependent on time and content of last meal. Glucose of more than 200 mg/dL in a nonstressed, ambulatory subject supports the diagnosis of Diabetes Mellitus.Glucose [Mass/volume] in Serum or PlasmaOrdered By: Jeana Martini on 91-06-2528Lxrnmny [Mass/Vol]141 mg/rP90-264XmdyvisdpMercy Health St. Elizabeth Boardman HospitalComment on above:ADA recommended reference rangeRandom Glucose Reference Range is dependent on time and content of last meal. Glucose of more than 200 mg/dL in a nonstressed, ambulatory subject supports the diagnosisof Diabetes Mellitus.Magnesium [Mass/volume] in Serum or PlasmaOrdered By: Jeana Martini on 87-54-1590Jqbxabnlm [Mass/Vol]1.6 mg/dL1.9-2.7FCleveland Clinic Akron GeneralNo Panel InformationOrdered By: Jeana Martini on 78-11-2982Ieoxtca Glucose CommentGlu2: cleaned meterMercy Health St. Elizabeth Boardman HospitalEstimated GFR (CKD-EPI)55.771 mL/MinMercy Health St. Elizabeth [facility] Creatinine Clearance (Chem70.62[facility] Phosphate [Mass/volume] in Serum or PlasmaOrdered By: Jeana Martini on 18-81-3636Rvfhpovqb [Mass/Vol]3.8 mg/dL3.7-7.2FC[facility] Potassium [Moles/volume] in Serum or PlasmaOrdered By: Jeana Martini on 04-45-2609Qfcjojtid [Moles/Vol]4.0 mmol/L3.5-5.1FMercy Health Perrysburg Hospitalerum or plasma anion gap determinationOrdered By: Jeana Martini on 90-94-5328Qbaqs gap [Moles/Vol]10.1 mmol/L6.0-15.0[facility] Osteopathic Clinicodium [Moles/volume] in Serum or PlasmaOrdered By: Jeana Martini on 32-70-4785Hbdkpa [Moles/Vol]143 mmol/T518-795UdbgtlcypMercy Health St. Elizabeth [facility] Hospital Urea nitrogen [Mass/volume] in Serum or PlasmaOrdered By: Jeana Martini on 33-29-3751Qeci nitrogen [Mass/Vol]20 mg/dL7-25[facility] Basophils Auto (Bld) [#/Vol]Ordered By: Jeana Martini on 73-76-9116Vbcqkhhcg (Bld) [#/Vol]0.1 10*3/uL0.0-0.2FCleveland Clinic Akron GeneralBasophils/100 WBC Auto (Bld)Ordered By: Jeana Martini on 63-17-9159Ntvtsohtm/100 WBC (Bld)0.8 %.[facility] HospitalEosinophils Auto (Bld) [#/Vol]Ordered By: Jeana Martini on 32-09-3819Voakugyhknn (Bld) [#/Vol]0.2 10*3/uL0.0-0.45[facility] HospitalEosinophils/100 WBC Auto (Bld)Ordered By: Jeana Martini on 23-52-2408Ryjudtmyanb/100 WBC (Bld)1.8 %.[facility] Erythrocyte distribution width Auto (RBC) [Ratio]Ordered By: Jeana Martini on 50-96-9071Sdbfakiuskd distribution width (RBC) [Ratio]14.5 %11.9-15.3FCleveland Clinic Akron GeneralHematocrit Auto (Bld) [Volume fraction]Ordered By: Jeana Martini on 65-27-1755Haeecdjrvf (Bld) [Volume fraction]31.3 %34.0-46.4FCleveland Clinic Akron GeneralHemoglobin [Mass/volume] in BloodOrdered By: Jeana Martini on 55-79-4540Jytcpzdaxl (Bld) [Mass/Vol]10.7 g/dL11.8-15.4FCleveland Clinic Akron GeneralLeukocytes [#/volume] corrected for nucleated erythrocytes in Blood by Automated counOrdered By: Jeana Martini on 08-21-2022 WBC corrected for nucl RBC Auto (Bld) [#/Vol]8.2 10*3/uL3.8-11.6FCleveland Clinic Akron GeneralLymphocytes Auto (Bld) [#/Vol]Ordered By: Jeana Martini on 65-51-9137Ipxmzcxbttt (Bld) [#/Vol]1.7 10*3/uL1.00-4.8[facility] HospitalLymphocytes/100 WBC Auto (Bld)Ordered By: Jeana Martini on 30-91-1737Xmsgogjctyt/100 WBC (Bld)20.6 %.[facility] HospitalMCH Auto (RBC) [Entitic mass]Ordered By: Jeana Martini on 66-81-7835MJL (RBC) [Entitic mass]31.5 pg24.7-34.3FCleveland Clinic Akron GeneralMCHC Auto (RBC) [Mass/Vol]Ordered By: Jeana Martini on 84-26-5150GQID (RBC) [Mass/Vol]34.3 g/dL 32.0-35.0[facility] HospitalMCV Auto (RBC) [Entitic vol]Ordered By: Jeana Martini on 64-75-1663GBS (RBC) [Entitic vol]91.8 zT23-050XhwqfrzwoMercy Health St. Elizabeth Boardman HospitalMonocytes Auto (Bld) [#/Vol]Ordered By: Jeana Martini on 24-40-3840Drycyptvc (Bld) [#/Vol]0.6 10*3/uL0.0-0.8[facility] HospitalMonocytes/100 WBC Auto (Bld)Ordered By: Jeana Martini on 08-21-2022 Monocytes/100 WBC (Bld)7.4 %.[facility] HospitalNeutrophils Auto (Bld) [#/Vol]Ordered By: Jeana Martini on 00-22-3942Vuorgqdektw (Bld) [#/Vol]5.7 10*3/uL1.8-7.7FCleveland Clinic Akron GeneralNeutrophils/100 WBC Auto (Bld) Ordered By: Jeana Martini on 73-16-2367Pepcavdvuhe/100 WBC (Bld)69.4 %.[facility] [facility] HospitalNucleated erythrocytes [Presence] in Blood by Automated countOrdered By: Jeana Martini on 61-82-1133Qdishfsev RBC Auto Ql (Bld)0.0 /100{WBC}0-0.5FCleveland Clinic Akron GeneralPlatelet mean volume Auto (Bld) [Entitic vol]Ordered By: Jeana Martini on 63-81-0347Dbhwbael mean volume (Bld) [Entitic vol]6.9 fL6.3-10.7FCleveland Clinic Akron GeneralPlatelets Auto (Bld) [#/Vol]Ordered By: Jeana Martini on 94-79-5302Vyndttfaf (Bld) [#/Vol]291 10*3/uL 150-450[facility] Elizabeth Board[facility] HospitalRBC Auto (Bld) [#/Vol]Ordered By: Jeana Martini on 88-92-2421JPC (Bld) [#/Vol]3.41 10*6/uL3.60-5.00[facility] HospitalWBC Auto (Bld) [#/Vol]Ordered By: Jeana Martini on 78-89-2346XCQ (Bld) [#/Vol]8.2 10*3/uL3.8-11.6FCleveland Clinic Akron GeneralActivated partial thromboplastin time (aPTT) in platelet poor plasma by coagulation a Ordered By: Jacob Farfan on 58-04-4542nHCC Coag (PPP) [Time]62.3 s25.1-36.[address] [facility] Boardman HospitalAlanine aminotransferase [Enzymatic activity/volume] in Serum or PlasmaOrdered By: Jacob Farfan on 08-20-2022 ALT [Catalytic activity/Vol]7 U/L7-52[facility] HospitalAlbumin [Mass/volume] in Serum or Plasma by Bromocresol green (BCG) dye binding metho Ordered By: Jacob Farfan on 18-04-7682Jwpzloo BCG dye [Mass/Vol]3.6 g/dL 3.5-5.7FCleveland Clinic [facility]ron GeneralAlkaline phosphatase [Enzymatic activity/volume] in Serum or PlasmaOrdered By: Jacob Farfan on 08-20-2022 ALP [Catalytic activity/Vol]82 U/R51-499OzdyzhiubMercy Health St. [facility] Hospital Amphetamine Screen Ql (U)Ordered By: Jacob Farfan on 41-44-6017Jhtzkvbraobg Ql (U)NegativeNegativeMercy Health St. Elizabeth Boardman HospitalAspartate aminotransferase [Enzymatic activity/volume] in Serum or PlasmaOrdered By: Jacob Farfan on 95-85-6524ROB [Catalytic activity/Vol]9 U/K18-74DjedgeumzMercy Health St. Elizabeth Boardman HospitalAutomated erythrocytes count in urine sediment (number/area)Ordered By: Jacob Farfan on 21-53-9725MEE Auto (Urine sed) [#/Area]5-9 [HPF]0-4FCleveland Clinic [facility]ron GeneralAutomated leukocytes count in urine sediment (number/area)Ordered By: Jacob Farfan on 06-56-9186XTP Auto (Urine sed) [#/Area]10-19 [HPF]0-4FC[facility] Clinic [facility] General Bacterial blood cultureOrdered By: Jeana Martini on 00-72-5401Mgxtkxsk identified Cx Nom (Bld)NO GROWTH [address] [facility] Barbiturates [Presence] in Urine by Screen methodOrdered By: Jacob Farfan on 08-38-5234Sluimiiqonqm Screen Ql (U)NegativeNegativeMercy Health St. Elizabeth Board[facility] HospitalBasophils Auto (Bld) [#/Vol]Ordered By: Jacob Farfan on 36-33-8087Dyjcywehy (Bld) [#/Vol]0.1 10*3/uL0.0-0.2FCleveland Clinic [facility]ron GeneralBasophils/100 WBC Auto (Bld)Ordered By: Jacob Farfan on 08-20-2022 Basophils/100 WBC (Bld)0.7 %.[facility] HospitalBenzodiazepines Screen Ql (U)Ordered By: Jacob Farfan on 33-90-2762Gjrzefaciwljvjb Ql (U) NegativeNegativeMercy Health St. Elizabeth Boardman HospitalBenzoylecgonine [Presence] in Urine by Screen methodOrdered By: Jacob Farfan on 07-23-7891Ssudoptcpjkreyi Screen Ql (U)NegativeNegativeMercy Health St. Elizabeth Boardman HospitalBilirubin Test strip Ql (U)Ordered By: Jacob Farfan on 61-46-9209Erzsbxcxw Ql (U)Negative NegativeMercy Health St. Elizabeth Boardman HospitalBilirubin.total [Mass/volume] in Serum or PlasmaOrdered By: Jacob Farfan on 13-74-6868Ohfaxnqtc [Mass/Vol]0.4 mg/dL0.3-1.0[facility] HospitalC reactive protein [Mass/volume] in Serum or PlasmaOrdered By: Jeana Martini on 42-61-2010VNV [Mass/Vol]1.5 mg/dL 0.0-0.5FCleveland Clinic [facility] GeneralC reactive protein [Mass/volume] in Serum or PlasmaOrdered By: Jacob Farfan on 94-78-7908SRB [Mass/Vol]1.9 mg/dL0.0-0.5FCleveland Clinic [facility] GeneralCalcium [Mass/volume] in Serum or PlasmaOrdered By: Jacob Farfan on 11-76-4604Xnvgqkj [Mass/Vol]9.2 mg/dL 8.6-10.3FCleveland Clinic [facility] GeneralCannabinoids [Presence] in Urine by Screen methodOrdered By: Jacob Farfan on 19-29-9264Xzgxczexbkfw Screen Ql (U)NegativeNegativeMercy Health St. Elizabeth Boardman HospitalComment on above:These are unconfirmed results and should not be used for legal purposes. Drug Cut-Off Concentration: AMPH 1000 ng/mL JULIANNA 200 ng/mL ALICE 200 ng/mL COCM 300 ng/mL OP 300 ng/mL PCP 25 ng/mL THC 20 ng/mLCarbon dioxide, total [Moles/volume] in Serum or PlasmaOrdered By: Jacob Farfan on 35-15-6054QX0 [Moles/Vol]28.0 mmol/L 21.0-31.0[facility] HospitalChloride [Moles/volume] in Serum or PlasmaOrdered By: Jacob Farfan on 14-76-4753Phkbbanw [Moles/Vol]105 mmol/L 98-107[facility] HospitalColor Auto (U)Ordered By: Jacob Farfan on 75-40-1365Hpvli (U)YellowYellowMercy Health St. [facility] Creatinine [Mass/volume] in Serum or PlasmaOrdered By: Jacob Farfan on 41-34-3189Clggvnkdba [Mass/Vol]0.93 mg/dL0.60-1.20[facility] HospitalEosinophils Auto (Bld) [#/Vol]Ordered By: Jacob Farfan on 08-20-2022 Eosinophils (Bld) [#/Vol]0.1 10*3/uL0.0-0.45[facility] Eosinophils/100 WBC Auto (Bld)Ordered By: Jacob Farfan on 08-20-2022 Eosinophils/100 WBC (Bld)1.3 %.[facility] HospitalErythrocyte distribution width Auto (RBC) [Ratio]Ordered By: Jacob Farfan on 08-20-2022 Erythrocyte distribution width (RBC) [Ratio]14.5 %11.9-15.3FCleveland Clinic Akron GeneralErythrocyte sedimentation rate by Photometric methodOrdered By: Jacob Farfan on 26-20-6329NOH Photometric method (Bld) [Velocity]47 mm/hr 0-19[facility] HospitalGlobulin Calc (S) [Mass/Vol]Ordered By: Jacob Farfan on 34-81-0065Lyhkzxnq (S) [Mass/Vol]2.8 g/dLMercy Health St. Elizabeth Boardman HospitalGlucose Glucometer (BldC) [Mass/Vol]Ordered By: Jacob Farfan on 45-18-9421Asnghdu [Mass/Vol]226 mg/dLMercy Health St. [facility] Comment on above:Random Glucose Reference Range is dependent on time and content of last meal. Glucose of more than 200 mg/dL in a nonstressed, ambulatory subject supports the diagnosis of Diabetes Mellitus.Glucose [Mass/volume] in Serum or PlasmaOrdered By: Jacob Farfan on 05-01-8320Grlihhl [Mass/Vol]234 mg/xP52-619RtzptefdyMercy Health St. Elizabeth Boardman HospitalComment on above:ADA recommended reference rangeRandom Glucose Reference Range is dependent on time and content of last meal. Glucose of more than 200 mg/dL in a nonstressed, ambulatory subject supports the diagnosisof Diabetes Mellitus.Glucose mean value [Mass/volume] in Blood Estimated from glycated hemoglobinOrdered By: Ezekiel Mathew on 57-90-6625Pgsdkms glucose Estimated from glycated hemoglobin (Bld) [Mass/Vol]220 mg/dLMercy Health St. Elizabeth Board[facility] HospitalHematocrit Auto (Bld) [Volume fraction]Ordered By: Jacob Farfan on 61-40-5843Dkbppschyr (Bld) [Volume fraction]34.4 %34.0-46.4FCleveland [facility]ron GeneralHemoglobin A1c percentageOrdered By: Ezekiel Mathew on 68-53-2449ZiB8f (Bld) [Mass fraction]9.3 %4.3-5.6FCleveland Clinic Akron GeneralComment on above:Increased risk for diabetes: 5.7 - 6.4diabetes: >6.4glycemic control for adults with diabetes: <7.0Hemoglobin [Mass/volume] in BloodOrdered By: Jacob Farfan on 29-18-8026Btkbrlmkls (Bld) [Mass/Vol]11.6 g/dL11.8-15.4FCleveland Clinic [facility] GeneralKetones Auto test strip (U) [Mass/Vol]Ordered By: Jacob Farfan on 25-72-8915Jrcjyxf (U) [Mass/Vol]NegativeNegativeMercy Health St. Elizabeth Boardman HospitalLaboratory - Chemistry and Chemistry - challengeOrdered By: Jacob Farfan on 02-63-1193TBU/1.73 sq M.predicted MDRD (S/P/Bld) [Vol rate/Area]mL/min/{1.73_m2}[facility] HospitalLaboratory - CoagulationOrdered By: Jacob Farfan on 73-21-6697ES Coag (PPP) [Time]12.2 s 9.0-12.9[facility] HospitalLaboratory - UrinalysisOrdered By: Jacob Farfan on 65-33-7004Elvueck casts LM Ql (Urine sed)0-8 [LPF]0-[address] [facility] HospitalLeukocytes [#/volume] corrected for nucleated erythrocytes in Blood by Automated counOrdered By: Jacob Farfan on 95-19-6729RUP corrected for nucl RBC Auto (Bld) [#/Vol]8.5 10*3/uL3.8-11.[address] [facility] HospitalLymphocytes Auto (Bld) [#/Vol]Ordered By: Jacob Farfan on 44-58-6863Ffaxykwazve (Bld) [#/Vol]2.3 10*3/uL1.00-4.[address] [facility] HospitalLymphocytes/100 WBC Auto (Bld)Ordered By: Jacob Farfan on 27-58-4604Gqsuesbnxrf/100 WBC (Bld)27.3 %.[facility] CenterH Auto (RBC) [Entitic mass]Ordered By: Jacob Farfan on 19-00-5519WZO (RBC) [Entitic mass]30.8 pg24.7-34.3FCleveland Clinic [facility] GeneralMCHC Auto (RBC) [Mass/Vol]Ordered By: Jacob Farfan on 55-63-1871LKPK (RBC) [Mass/Vol]33.8 g/dL32.0-35.0[facility] HospitalMCV Auto (RBC) [Entitic vol]Ordered By: Jacob Farfan on 39-79-6891AVP (RBC) [Entitic vol]91.2 sN09-321QfzkjpvufMercy Health St. Elizabeth Boardman HospitalMagnesium [Mass/volume] in Serum or PlasmaOrdered By: Jacob Farfan on 08-20-2022 Magnesium [Mass/Vol]1.2 mg/dL1.9-2.7FC[facility] Clinic [facility] GeneralMonocyte distribution width [Entitic volume] in Blood by AutomatedOrdered By: Jacob Farfan on 31-87-6477Proaebgb distribution width Auto (Bld) [Entitic vol]20.72 % 0.00-20.00[facility] HospitalComment on above:For adults in ED, MDW > 20.0 may be associated with a higher risk of sepsis during the first 12 h rs of hospital admissionMonocytes Auto (Bld) [#/Vol]Ordered By: Jacob Farfan on 36-37-7711Dzctygbco (Bld) [#/Vol]0.5 10*3/uL0.0-0.8[facility] HospitalMonocytes/100 WBC Auto (Bld)Ordered By: Jacob Farfan on 26-06-6878Qbgavycqj/100 WBC (Bld)6.0 %.[facility] Neutrophils Auto (Bld) [#/Vol]Ordered By: Jacob Farfan on 08-20-2022 Neutrophils (Bld) [#/Vol]5.5 10*3/uL1.8-7.7FC[facility] Neutrophils/100 WBC Auto (Bld)Ordered By: Jacob Farfan on 08-20-2022 Neutrophils/100 WBC (Bld)64.7 %.[facility] HospitalNitrite Test strip Ql (U)Ordered By: Jacob Farfan on 73-67-4434Rwlgjtw Ql (U)Negative NegativeMercy Health St. Elizabeth Boardman HospitalNo Panel InformationOrdered By: Jenaa Martini on 26-63-3270Mqhgppj Glucose #[address] Elizabeth Boardman HospitalNo Panel InformationOrdered By: Jacob Farfan on 08-20-2022 Pharmacy Creatinine Clearance (Chem91.29[facility] Nucleated erythrocytes [Presence] in Blood by Automated countOrdered By: Jacob Farfan on 33-81-8057Iiwoofkbu RBC Auto Ql (Bld)0.0 /100{WBC}0-0.[address] [facility] HospitalOpiates [Presence] in Urine by Screen method Ordered By: Jacob Farfan on 80-94-7658Wohwhlg Screen Ql (U)NegativeNegative [facility] HospitalPhencyclidine Screen Ql (U)Ordered By: Jacob Farfan on 01-07-2089Xkgquabfykaat Ql (U)NegativeNegSCCI Hospital LimaPlatelet mean volume Auto (Bld) [Entitic vol]Ordered By: Jacob Farfan on 73-50-8044Lhrpnuqq mean volume (Bld) [Entitic vol]6.9 fL 6.3-10.7FCleveland Clinic Akron GeneralPlatelet poor plasma international normalized ratio (INR) by coagulation assay (relatOrdered By: Jacob Farfan on 80-22-6355LAB Coag (PPP) [Relative time]1.1 {INR}[facility] HospitalComment on above:INR Therapeutic Range A) Pre- and Peroperative OAT started two weeks before surgery. NOT HIP SURGERY: 1.5 - 2.5 HIP SURGERY: 2 - 3B) Primary and secondary prevention of venous THROMBOSIS: 2 - 3C) Active venous thrombosis, pulmonary embolismand prevention of recurrent venous thrombosis: 2 - 3D) Prevention of arterial thromboembolismincluding patients with mechanical heart valves: 3 - 4.5Platelets Auto (Bld) [#/Vol]Ordered By: Jacob Farfan on 90-03-6996Vhucuvvzm (Bld) [#/Vol]326 10*3/aH917-880HbberdsxhMercy Health St. Elizabeth Boardman HospitalPotassium [Moles/volume] in Serum or PlasmaOrdered By: Jacob Farfan on 22-34-6464Opymmxwia [Moles/Vol]3.3 mmol/L3.5-5.1FC[facility] GeneralProtein Auto test strip (U) [Mass/Vol]Ordered By: Jacob Farfan on 20-48-8563Ifizlws (U) [Mass/Vol]100 mg/dLNegativeMercy Health St. Elizabeth Boardman HospitalProtein [Mass/volume] in Serum or PlasmaOrdered By: Jacob Farfan on 76-63-2806Yocrrzj [Mass/Vol]6.4 g/dL6.4-8.9[facility] HospitalRBC Auto (Bld) [#/Vol]Ordered By: Jacob Farfan on 93-71-0528NNL (Bld) [#/Vol] 3.77 10*6/uL3.60-5.00[facility] Osteopathic Clinicerum or plasma albumin/globulin mass ratioOrdered By: Jacob Farfan on 08-20-2022 Albumin/Globulin [Mass ratio]1.3 {ratio}[facility] Clinicerum or plasma anion gap determinationOrdered By: Jacob Farfan on 08-20-2022 Anion gap [Moles/Vol]11.3 mmol/L6.0-15.0[facility] Clinicodium [Moles/volume] in Serum or PlasmaOrdered By: Jacob Farfan on 08-20-2022 Sodium [Moles/Vol]141 mmol/L173-865WvefmjubbMarietta Osteopathic Clinicpecific gravity Auto test strip (U) [Rel density]Ordered By: Jacob Farfan on 08-01-5990Eqvnjxgn gravity (U) [Rel density]1.0171.001-1.030[facility] Osteopathic Clinicquamous epithelial cells detection in urine sediment by light microscopyOrdered By: Jacob Farfan on 52-40-2630Zovppmnxfi cells.squamous LM Ql (Urine sed)3-4 [HPF]0-2FCleveland Clinic Akron GeneralTroponin I.cardiac [Mass/volume] in Serum or Plasma by Detection limit <= 0.01 ng/Ordered By: Jacob Farfan 31-57-8770Gwmawreh I.cardiac DL <= 0.01 ng/mL [Mass/Vol]8.2 pg/mL0.0-15.0[facility] HospitalUrea nitrogen [Mass/volume] in Serum or PlasmaOrdered By: Jacob Farfan 65-04-4532Revh nitrogen [Mass/Vol]15 mg/dL7-25[facility] HospitalUrine bacteria detection by automated methodOrdered By: Jacob Farfan on 43-79-2294Ayoxdrge Auto Ql (U)1+None SeenMercy Health St. Elizabeth Boardman HospitalUrine clarity by refractometry automatedOrdered By: Jacob Farfan on 36-92-3603Wxzcbfr Refractometry automated (U)ClearClearFCleveland Clinic Akron GeneralUrine glucose measurement by automated test strip (mass/volume)Ordered By: Jacob Farfan on 18-96-3580Pfxmrwd Auto test strip (U) [Mass/Vol]>=1000 mg/dLNoSumma Health Akron CampusUrine hemoglobin detection by automated test stripOrdered By: Jacob Farfan on 37-56-0950Pyddcsccbf Auto test strip Ql (U)Trace NegativeMercy Health St. Elizabeth Boardman HospitalUrine leukocyte esterase detection by automated test stripOrdered By: Jacob Farfan on 36-16-2671Gbhvaoove esterase Auto test strip Ql (U)NegativeNegativeMercy Health St. [facility] Urobilinogen Auto test strip (U) [Mass/Vol]Ordered By: Jacob Farfan on 41-73-9669Osgrqkbajzub (U) [Mass/Vol]Normal mg/dLSelect Medical Specialty Hospital - CantonVitamin D+Metabolites [Mass/volume] in Serum or PlasmaOrdered By: Ezekiel Mathew on 73-36-2632Eyvebml D+Metabolites [Mass/Vol]< 7.0 ng/mL 30-100[facility] HospitalComment on above:VITAMIN D STATUS 25(OH)VITAMIN D RANGE (ng/mL) Deficient <20 Insufficient 20 to <59Bklyzjjwat26 to 100Reference: Bernie MF,Hina ARELLANO, Tran THIBODEAUX, et al. Evaluation,treatment, and prevention of vitamin D deficiency; an Endocrine Society clinical practice guideline. JCEM. 2010; 96(7):1911-30.WBC Auto (Bld) [#/Vol]Ordered By: Jacob Farfan on 21-81-2996OJQ (Bld) [#/Vol]8.5 10*3/uL3.8-11.6FCleveland Clinic [facility]ron GeneralpH Auto test strip (U)Ordered By: Jacob Farfan on 05-83-5131wT (U)6.5 [pH]5.0-9.0[facility] HospitalCHEMISTRYOrdered By: CYPHER SYSTEM on 60-37-7504Aqdylfj [Mass/Vol] 3.6 g/dLNormal3.3 - 5.0 gm/dLFTMC RemisolAlbumin/Globulin [Mass ratio]1.1 {ratio}Normal1.1 - 2.2[facility] RemisolALP [Catalytic activity/Vol]87 [iU]/zOyogdy17 - 98 Int._Unit/LFTMC RemisolALT No additional P-5'-P [Catalytic activity/Vol]11 [iU]/dNormal6 - 46 Int._Unit/LFTMC RemisolAnion gap [Moles/Vol]10 mmol/LNormal6 - 16 mEq/LFTMC RemisolAST [Catalytic activity/Vol]16 [iU]/dNormal5 - 43 Int._Unit/LFTMC RemisolBilirubin [Mass/Vol]0.3 mg/dLNormal0.0 - 1.1 mg/dLFTMC RemisolCalcium [Mass/Vol]9.0 mg/dLNormal8.9 - 11.1 mg/dLFTMC RemisolChloride [Moles/Vol]102 mmol/RGbtyae233 - 111 mmol/LFTMC RemisolCO2 [Moles/Vol]27 mmol/L Adiwcq34 - 31 mmol/LFTMC RemisolCreatinine [Mass/Vol]0.9 mg/dLNormal0.5 - 1.3 mg/dLFT[facility] RemisolCRP [Mass/Vol]2.0 mg/dLHigh<=1.9mg/dLFTMC RemisolGFR/1.73 sq M.predicted among blacks MDRD (S/P/Bld) [Vol rate/Area]mL/min/1.73 s7Kpsuwm >=59mL/min/1.73 m2[facility] Chem SGFR/1.73 sq M.predicted among non-blacks MDRD (S/P/Bld) [Vol rate/Area]mL/min/1.73 p8Uaqomk>=59mL/min/1.73 m2[facility] Chem S Globulin (S) [Mass/Vol]3.3 g/dLNormal1.4 - 4.0 gm/dLFT[facility] RemisolGlucose [Mass/Vol]204 mg/aBRgom23 - 199 mg/dLFTMC RemisolLactate [Mass/Vol]1.2 mmol/L Normal0.5 - 2.2 mmol/LFTMC RemisolMagnesium [Mass/Vol]1.3 mg/dLNormal1.3 - 2.4 mg/dLFT[facility] RemisolPotassium [Moles/Vol]3.1 mmol/LLow3.5 - 5.3 mmol/LFTMC Remisol Protein [Mass/Vol]6.9 g/dLNormal6.0 - 7.8 gm/dLFTMC RemisolSodium [Moles/Vol]136 mmol/QOmmuou936 - 145 mmol/LFTMC RemisolTroponin I.cardiac [Mass/Vol]6.60 pg/mL Low10.10 - 27.10 pg/mLFTMC RemisolUrea nitrogen [Mass/Vol]17 mg/dLNormal5 - 21 mg/dLFTMC RemisolUrea nitrogen/Creatinine [Mass ratio]19 mg/ttYlyxge32 - 20[facility] RemisolCHEMISTRYOrdered By: Shannen Sosa on 51-16-3540Wsuynktapcm peptide B (Bld) [Mass/Vol]47 pg/mLNormal5 - 80 pg/mLFTMC HemeManSSCOAGULATIONOrdered By: Gigi Morrison on 52-69-8213uNOR Coag (PPP) [Time]30.5 nQwcmzy48.1 - 36.5 second(s)[facility] Auto CoagINR Coag (PPP) [Relative time]1.1 {INR}Invalid Interpretation CodeFTMC Auto CoagPT Coag (PPP) [Time]12.1 sNormal9.4 - 12.5 second(s)[facility] Auto CoagHEMATOLOGYOrdered By: SYSTEM SYSTEM on 08-19-2022 Basophils/100 WBC (Bld)0.7 %Normal0.0 - 2.0 %[facility] HemeAutoSSBasophils/Leukocytes Auto (Bld) [Pure # fraction]0.1 E9/LNormal0.0 - 0.2 E9/LFTMC HemeAutoSS Eosinophils/100 WBC (Bld)0.7 %Normal0.0 - 8.0 %[facility] HemeAutoSS Eosinophils/Leukocytes Auto (Bld) [Pure # fraction]0.1 E9/LNormal0.0 - 0.5 E9/L [facility] HemeAutoSSLymphocytes/100 WBC (Bld)18.0 %Wkahhx70.0 - 50.0 %[facility] HemeAutoSS Lymphocytes/Leukocytes Auto (Bld) [Pure # fraction]1.6 E9/LNormal1.0 - 4.0 E9/L [facility] HemeAutoSSMonocytes/100 WBC (Bld)6.7 %Normal4.0 - 14.0 %[facility] HemeAutoSS Monocytes/Leukocytes Auto (Bld) [Pure # fraction]0.6 E9/LNormal0.2 - 1.0 E9/L [facility] HemeAutoSSNeutrophils/100 WBC (Bld)73.9 %Mqgobf61.0 - 75.0 %[facility] HemeAutoSS Neutrophils/Leukocytes Auto (Bld) [Pure # fraction]6.8 E9/LNormal2.0 - 7.5 E9/L [facility] HemeAutoSSHEMATOLOGYOrdered By: Shannen Sosa on 82-05-3095Qzpotijiqwu distribution width (RBC) [Ratio]14.1 %Hukfxk87.9 - 14.2 %[facility] HemeAutoSS Hematocrit (Bld) [Volume fraction]36.2 %Jlxpvq69.0 - 46.0 %[facility] HemeAutoSS Hemoglobin (Bld) [Mass/Vol]12.5 g/vNWemjsx66.0 - 16.0 gm/dLFTMC HemeAutoSSMCH (RBC) [Entitic mass]31.1 bsDlsryf41.0 - 34.0 pgFTMC HemeAutoSSMCHC (RBC) [Mass/Vol]34.4 g/oPAliyte02.4 - 36.0 gm/dLFTMC HemeAutoSSMCV (RBC) [Entitic vol] 90.4 uQZalbye44.0 - 100.0 fLFTMC HemeAutoSSPlatelet mean volume (Bld) [Entitic vol]7.2 fLNormal6.4 - 10.8 fLFTMC HemeAutoSSPlatelets (Bld) [#/Vol]333.0 E9/L Vixzvn286.0 - 500.0 E9/LFTMC HemeAutoSSRBC (Bld) [#/Vol]4.0 E12/LLow4.3 - 5.9 E12/LFTMC HemeAutoSSSed Rate Efiujxrbs06 mm/hNormal0 - 34 mm/hrFTMC HemeAutoSS WBC corrected for nucl RBC Auto (Bld) [#/Vol]9.2 E9/LNormal4.0 - 11.0 E9/LFTMC HemeAutoSSCBC AUTO DIFFon 65-02-7080ZRDX #0.0 103/ulNormal0.0-0.1The [facility] Hospitalment on above:Performed By: #### CBC ####[facility] Atnh[address]so[address] [place], [place] [address]Dr.Devin ChangBasophils/100 WBC (Bld)0.5 %Normal0.2-2.0The [facility] CenterComment on above:Performed By: #### CBC ####[facility] Vtakzfrphd[address] [place], [place] [address]Dr.Tishlan ChangEO #0.1 103/ulNormal0.0-0.7The [facility] CenterComment on above:Performed By: #### CBC ####[facility] Nijnbf[address]jkh[address] [place], [place] [address]Dr.Devin ChangEosinophils/100 WBC (Bld)1.6 %Normal 0.9-7.0The [facility] CenterComment on above:Performed By: #### CBC ####[facility] Ezvhmocgrn[address] [place], [place] [address]Dr.Devin Suresh Erythrocyte distribution width (RBC) [Ratio]13.3 %Lcvshj01.0-15.0The [facility] CenterComment on above:Performed By: #### CBC ####[facility] Niompfopcz[address] [place], [place] [address]Dr.Devin SureshHematocrit (Bld) [Volume fraction]30.1 %Critically low36.0-48.0The [facility] CenterComment on above:Performed By: #### CBC ####[facility] Dzapgktdio[address] [place], [place] [address]Dr.Devin SureshHemoglobin (Bld) [Mass/Vol]10.6 g/dL Critically low12.0-16.0The [facility] CenterComment on above:Performed By: #### CBC ####[facility] Ztgskfsulk[address] [place], [place] [address]Dr. Devin SureshIG #0.04 10e3/ulCritically high0.00-0.03The [facility] CenterComment on above:Performed By: #### CBC ####[facility] [address] [place] [address]Dr.Devin SureshIG %0.6 %Critically high0.0-0.5The [facility] CenterComment on above:Performed By: #### CBC ####[facility] Auspgbliml[address] [place], [place] [address]Dr.Devin SureshLYMPH #2.3 103/ulNormal1.2-3.8The [facility] CenterComment on above:Performed By: #### CBC ####[facility] Mnirobsbqh4[address] [place], [place] [address]Dr. Devin Hernandezmphocytes/100 WBC (Bld)36.0 %Ntiurx26.5-60.0[facility] Comment on above:Performed By: #### CBC ####[facility] Zerkygsrkh3[address] [place], [place] [address]Dr.Devin SureshMANUAL DIFF REQNONormalThe [facility] CenterComment on above:Performed By: #### CBC ####[facility] Qlmdcwcrkt[address] [place], [place] [address]Dr.Devin SureshHUDSON VALLEY [facility] (RBC) [Entitic mass]31.1 yyGvirvp97.7-34.0Premier HealthComment on above: Performed By: #### CBC ####[facility] Cnmalbelhb[address] [place], [place] [address]Dr.Devin SureshHC (RBC) [Mass/Vol]35.2 g/dLNormal 29.9-35.2The [facility] CenterComment on above:Performed By: #### CBC ####[facility] Xzdtwxkvbx[address] [place], [place] [address]Dr. Devin SureshV (RBC) [Entitic vol]88.3 pGCtslfp20.0-99.0[facility] Comment on above:Performed By: #### CBC ####[facility] Muokekxqjg[address] [place], [place] [address]Dr.Devin SureshMONO #0.4 103/ulNormal0.3-0.8 The [facility] HospitalComment on above:Performed By: #### CBC ####[facility] Grujlsgugj[address] [place], [place] [address]Dr.Devin Suresh Monocytes/100 WBC (Bld)6.1 %Normal1.7-12.0The [facility] HospitalComment on above: Performed By: #### CBC ####[facility] Zyfxuxasur[address] [place], [place] [address]Dr.Devin SureshNEUT #3.5 103/ulNormal1.4-6.5The [facility] HospitalComment on above:Performed By: #### CBC ####[facility] Oqmtdjdcaf[address] [place], [place] [address]Dr.Devin SureshNeutrophils/100 WBC (Bld)55.2 %Drtirl98.0-75.0The [facility] CenterComment on above:Performed By: #### CBC ####[facility] Bfewnrwuds[address] [place], [place] [address]Dr.Devin SureshPlatelet mean volume (Bld) [Entitic vol]8.3 fLCritically low 9.5-13.5The [facility] CenterComment on above:Performed By: #### CBC ####[facility] Yhyvqroffz[address] [place], [place] [address]Dr. Devin StjooWHX774 103/lbUbqmsi998-750Pni [facility] CenterComment on above: Performed By: #### CBC ####[facility] Wxbzdoguym8[address] [place], [place] [address]Dr.Devin ChangRBC3.41 106/ulCritically low4.20-5.40The [facility] CenterComment on above:Performed By: #### CBC ####[facility] Ehdnviwxzv17[address] [place], [place] [address]Dr.Devin ChangWBC6.3 103/ul Normal4.0-11.0The [facility] HospitalComment on above:Performed By: #### CBC ####[facility] Lfsjavrtqt40[address] [place], [place] [address]Dr. Yilan ChangPOINT OF CARE GLUCOSEon 55-43-3765Grrtdua [Mass/Vol]209 mg/dL Critically aydo86-648Xve [facility] CenterComment on above:Performed By: #### POCGLUC ####[facility] [address] [place] [address]Dr. Tishlan ChangPROF 14(COMP METB)on 36-29-9840Imtxvcu [Mass/Vol]3.2 g/dL Critically low3.4-5.0The [facility] CenterComment on above:Performed By: #### CMP ####[facility] Dyhjgqvtgt50[address] [place], [place] [address]Dr. Tishlan ChangAlbumin/Globulin [Mass ratio]1.1 {ratio}NormalThe [facility] Comment on above:Performed By: #### CMP ####[facility] Yqbxzhjgoz[address] [place], [place] [address]Dr.Tishlan ChangALP [Catalytic activity/Vol]85 U/BGoooyr72-089Now [facility] CenterComment on above:Performed By: #### CMP ####[facility] Lsaeofxoao[address] [place], [place] [address]Dr. Tishlan ChangALT [Catalytic activity/Vol]14 U/QPjkwiq62-46Mrs [facility] Comment on above:Performed By: #### CMP ####[facility] Fuuaelpyjc[address] [place], [place] [address]Dr.Devin ChangAnion gap [Moles/Vol]12.7 mmol/LNormalThe [facility] CenterComment on above:Performed By: #### CMP ####[facility] Hkvohdzrhh[address] [place], [place] [address]Dr. Yilan ChangAST [Catalytic activity/Vol]14 U/LCritically vkc69-61Odv [facility] CenterComment on above:Performed By: #### CMP ####[facility] Uqwpwnxgms[address] [place], [place] [address]Dr.Tishlan ChangBilirubin [Mass/Vol]0.4 mg/dLNormal0.2-1.0The [facility] CenterComment on above:Performed By: #### CMP ####[facility] [address] [place] [address]Dr.Yilan ChangCalcium [Mass/Vol]7.9 mg/dLCritically low8.5-10.1The [facility] CenterComment on above:Performed By: #### CMP ####[facility] Sqlstewlxt[address] [place], [place] [address]Dr.Yilan ChangChloride [Moles/Vol]106 mmol/HNrgkrv71-473Ujm [facility] CenterComment on above:Performed By: #### CMP ####[facility] Xzedjjnhmq[address] [place], [place] [address]Dr.Yilan ChangCO2 [Moles/Vol]23.5 mmol/LHeliew62.0-32.0The [facility] CenterComasc[facility] stand[facility] on above:Performed By: #### CMP ####[facility] Rmujdryymx[address] [place], [place] [address]Dr.Yilan ChangCreatinine [Mass/Vol]0.88 mg/dLNormal0.55-1.02The [facility] CenterComment on above: Performed By: #### CMP ####[facility] Zudcuqxefa[address] [place], [place] [address]Dr.Yilan ChangEGFR-AF CONGOLESE>60Normal>=60The [facility] on above:Performed By: #### CMP ####[facility] Zupnxufqpb0[address] [place], [place] [address]Dr.Yilan ChangEGFR-NON AF CONGOLESE>60Normal>=60The [facility] CenterComasc[facility] stand[facility] on above:Performed By: #### CMP ####[facility] Qggnshmymc7[address] [place], [place] [address]Dr. Yilan ChangGlobulin (S) [Mass/Vol]2.8 g/dLNormalThe [facility] CenterComasc[facility] on above:Performed By: #### CMP ####[facility] Tigneesruv[address] [place], [place] [address]Dr.Yilan ChangGlucose [Mass/Vol]165 mg/dLCritically iwra74-895Otf [facility] CenterComasc[facility] on above:Performed By: #### CMP ####[facility] [address] [place] [address]Dr. Yilan ChangPotassium [Moles/Vol]3.2 mmol/LCritically low3.5-5.1The [facility] CenterComment on above:Performed By: #### CMP ####[facility] Gejmojhhtp[address] [place], [place] [address]Dr.Yilan ChangProtein [Mass/Vol]6.0 g/dLCritically low6.4-8.2The [facility] CenterComment on above: Performed By: #### CMP ####[facility] Aosmtbkiac[address] [place], [place] [address]Dr.Yilan ChangSodium [Moles/Vol]139 mmol/LNormal 136-145The [facility] CenterComment on above:Performed By: #### CMP ####[facility] Ukhchlkadz[address] [place], [place] [address]Dr.Yilan ChangUrea nitrogen [Mass/Vol]5.0 mg/dLCritically low7.0-18.0The [facility] CenterComment on above:Performed By: #### CMP ####[facility] H[address] [place], [place] [address]Dr.Yilan ChangUrea nitrogen/Creatinine [Mass ratio]5.6 mg/mgNormalThe [facility] CenterComment on above:Performed By: #### CMP ####[facility] [address]th[address] [place], [place] [address]Dr. Devin ChangCBC AUTO DIFFon [id number] #0.0 103/ulNormal0.0-0.1The [facility] CenterCom[facility] on above:Performed By: #### CBC ####[facility] [id number] [place], [place] [address]Dr.Yilan ChangBasophils/100 WBC (Bld)0.3 %Normal0.2-2.0The [facility] CenterCom[facility] on above:Performed By: #### CBC ####[facility] Jul[address] [place], [place] [address]Dr.Yilan ChangEO #0.1 103/ulNormal0.0-0.7The [facility] HospitalComment on above:Performed By: #### CBC ####[facility] Atq[address] [place], [place] [address]Dr.Tishemily ChangEosinophils/100 WBC (Bld)1.7 %Normal 0.9-7.0The [facility] CenterComment on above:Performed By: #### CBC ####[facility] [address] [place], [place] [address]Dr.Devin Suresh Erythrocyte distribution width (RBC) [Ratio]13.4 %Jpyfag77.0-15.0The [facility] CenterComment on above:Performed By: #### CBC ####[facility] Hnzqceaqrl[address] [place], [place] [address]Dr.Devin ChangHematocrit (Bld) [Volume fraction]28.6 %Critically low36.0-48.0The [facility] CenterComment on above:Performed By: #### CBC ####[facility] Xwfqdahbuq367[address] [place], [place] [address]Dr.Devin ChangHemoglobin (Bld) [Mass/Vol]9.8 g/dL Critically low12.0-16.0The [facility] CenterComment on above:Performed By: #### CBC ####[facility] Uyeojdskui55[address] [place], [place] [address]Dr. Devin ChangIG #0.04 10e3/ulCritically high0.00-0.03The [facility] CenterComment on above:Performed By: #### CBC ####[facility] Zkzjynysbw139[address] [place], [place] [address]Dr.Devin ChangIG %0.7 %Critically high0.0-0.5The [facility] HospitalComment on above:Performed By: #### CBC ####[facility] Udgyzjvezw915[address] [place], [place] [address]Dr.Devin ChangLYMPH #1.8 103/ulNormal1.2-3.8The [facility] CenterComment on above:Performed By: #### CBC ####[facility] Ghhluiynwu8[address] [place], [place] [address]Dr. Dvein ChangLymphocytes/100 WBC (Bld)30.9 %Wpxymy22.5-60.0The [facility] Comment on above:Performed By: #### CBC ####[facility] Tyxyqejebh3510[address] [place], [place] [address]Dr.Devin KerwinMANUAL DIFF REQNONormalThe [facility] CenterComment on above:Performed By: #### CBC ####[facility] Qivjplgjyq3349[address] [place], [place] [address]Dr.Devin SureshH (RBC) [Entitic mass]30.0 vrDvrklx66.7-34.0The [facility] HospitalComment on above: Performed By: #### CBC ####[facility] Rciwuhxldp1939[address] [place], [place] [address]Dr.Devin KerwinHC (RBC) [Mass/Vol]34.3 g/dLNormal 29.9-35.2The [facility] CenterComment on above:Performed By: #### CBC ####[facility] Jvvnwnolwj1206[address] [place], [place] [address]Dr. Devin SureshV (RBC) [Entitic vol]87.5 fHRdkgbv24.0-99.0The [facility] Comment on above:Performed By: #### CBC ####[facility] Njrvyubqnj923[address] [place], [place] [address]Dr.Devin SureshMONO #0.3 103/ulNormal0.3-0.8 The [facility] CenterComment on above:Performed By: #### CBC ####[facility] Apolpspnwy5804[address] [place], [place] [address]Dr.Devin Suresh Monocytes/100 WBC (Bld)4.3 %Normal1.7-12.0The [facility] CenterComment on above: Performed By: #### CBC ####[facility] Vkqcxnxllr0184[address] [place], [place] [address]DrGonzalo SureshNEUT #3.6 103/ulNormal1.4-6.5The [facility] CenterComment on above:Performed By: #### CBC ####[facility] Boglygzdbu2522[address] [place], [place] [address]Dr.Devin SureshNeutrophils/100 WBC (Bld)62.1 %Zqgigm95.0-75.0The [facility] CenterComment on above:Performed By: #### CBC ####[facility] [address]kt[address] [place] [address]Dr.Devin ChangPlatelet mean volume (Bld) [Entitic vol]8.5 fLCritically low 9.5-13.5The [facility] HospitalComment on above:Performed By: #### CBC ####[facility] Zljukcruzg0855[address] [place], [place] [address]Dr. Devin MjtnhRKV865 103/npRbtnln463-320Efe [facility] CenterComment on above: Performed By: #### CBC ####[facility] Aorfzhxauk894[address] [place], [place] [address]Dr.Devin ChangRBC3.27 106/ulCritically low4.20-5.40The [facility] CenterComment on above:Performed By: #### CBC ####[facility] Duqcodjfek4839[address] [place], [place] [address]Dr.Devin ChangWBC5.9 103/ul Normal4.0-11.0The [facility] CenterComment on above:Performed By: #### CBC ####[facility] Jxkxwcoqal7812[address] [place], [place] [address]Dr. Devin SureshCBC W MANUAL DIFFon 50-46-2025XYTEJMOJQEHC8+NormalThe [facility] CenterComment on above:Performed By: #### CBCMAN ####[facility] Snayqbdmhk258[address] [place], [place] [address]Dr. Tishlan ChangATYPICAL LYMPH #NormalThe [facility]ckley HospitalComment on above:Performed By: #### CBCMAN ####[facility] Qhmrwesmew143[address] [place], [place] [address]Dr. Tishlan ChangATYPICAL LYMPH %NormalThe [facility]ckley HospitalComment on above:Performed By: #### CBCMAN ####[facility] Egydcwefra3669[address] [place], [place] [address]Dr. Yilan ChangBAND #0.1 103/ulNormal0.0-0.3The [facility] Comment on above:Performed By: #### CBCMAN ####[facility] Y[address]kmvskcg[address] [place] [address]Dr. Yilan ChangBAND %1 %Normal0-5The [facility] HospitalComment on above:Performed By: #### CBCMAN ####[facility] Qvhnpnkdsf7[address] [place] [address]Dr. Yilan ChangBASOM #0.10 103/ulNormal0.00-0.10The [facility] HospitalComment on above:Performed By: #### CBCMAN ####[facility] Rwxorijikv59[address] [place] [address]Dr. Yilan ChangBASOM %2.0 %Normal0.2-2.0The [facility] CenterComment on above:Performed By: #### CBCMARLEE ####[facility] Bmwzfzgyem4[address] [place], [place] [address]Dr. Yilan ChangBLAST #NormalThe [facility] Comment on above:Performed By: #### CBCMARLEE ####[facility] Beyhabbgqg4449[address] [place], [place] [address]Dr. Yilan ChangBLAST %NormalThe [facility] CenterComment on above:Performed By: #### CBCMARLEE ####[facility] Njhlcizyrt4164[address] [place], [place] [address]Dr. Yilan ChangCORRECTED WBC Normal4.0-11.0The [facility] CenterComment on above:Performed By: #### CBCMAN ####[facility] Nwufbzeozx9164[address] [place], [place] [address]Dr. Yilan ChangEOS #0.40 103/ulNormal0.00-0.70The [facility] CenterComment on above: Performed By: #### CBCMAN ####[facility] Narsbtcmhz7237[address] [place], [place] [address]Dr. Yilan ChangEOS%8.0 %Critically high0.9-7.0The [facility] HospitalComment on above:Performed By: #### CBCMAN ####[facility] Afqgvhzxry3216[address] [place], [place] [address]Dr. Yilan ChangHCT 29.5 %Critically low36.0-48.0The [facility] CenterComment on above:Performed By: #### CBCMAN ####[facility] Gqpdxiuwxx2068[address] [place], [place] [address]Dr. Devin SureshHGB10.0 g/dlCritically low12.0-16.0The [facility] Comment on above:Performed By: #### CBCMAN ####[facility] Wmdkgvzsnw5510[address] [place], [place] [address]Dr. Devin SureshLYMPHM #0.35 103/ulCritically low1.20-3.80The [facility] CenterComment on above:Performed By: #### CBCMARLEE ####[facility] Amadqeirwu640[address] [place], [place] [address]Dr. Devin SureshLYMPHM%7.0 %Critically low20.5-60.0The [facility] CenterComment on above:Performed By: #### CBCMARLEE ####[facility] Ioyuoimnky5017[address] [place], [place] [address]Dr. Devin SureshMCH30.0 juAcqtmd27.7-34.0The [facility] CenterComment on above:Performed By: #### CBCMARLEE ####[facility] Uzfcxigcqq804[address] [place], [place] [address]Dr. Devin SureshMCHC33.9 g/dl Vrmxdl66.9-35.2The [facility] CenterComment on above:Performed By: #### CBCMAN ####[facility] Bxjeoaauqm2747[address] [place], [place] [address]Dr. Devin SureshMCV88.6 jGPubsls83.0-99.0The [facility] CenterComment on above: Performed By: #### CBCMAN ####[facility] Lcxudnvwux8060[address] [place], [place] [address]Dr. Devin SureshMETAMYELOCYTE #0.1 103/ulNormalThe [facility] CenterComment on above:Performed By: #### CBCMAN ####[facility] Irngvyzgax2255[address] [place], [place] [address]Dr. Devin Suresh METAMYELOCYTE %2 %NormalThe [facility]inckley HospitalComment on above:Performed By: #### CBCMAN ####[facility] Vermftjica60[address] [place] [address]Dr. Yilan ChangMONOM#0.05 103/ulCritically low0.30-0.80The [facility] CenterComment on above:Performed By: #### CBCMAN ####[facility] Aftgjvxfwk80[address] [place] [address]Dr. Yilan ChangMONOM%1.0 % Critically low1.7-12.0The [facility] CenterComment on above:Performed By: #### CBCMAN ####[facility] Qnmkpvdquj15[address] [place] [address]Dr. Yilan ChangMPV8.5 fLCritically low9.5-13.5The [facility] CenterComment on above:Performed By: #### CBCMAN ####[facility] Zsegfwjawq15[address] [place] [address]Dr. Yilan ChangMYELOCYTE #NormalThe [facility] CenterComment on above:Performed By: #### CBCMAN ####[facility] Kqanhibxtj8[address] [place] [address]Dr. Yilan ChangMYELOCYTE % NormalThe [facility] CenterComment on above:Performed By: #### CBCMAN ####[facility] Jlmniyygco36[address] [place] [address]Dr. Yilan ChangNRBCNormalThe [facility] CenterComment on above:Performed By: #### CBCMAN ####[facility] Yckqpawjzl34[address] [place] [address]Dr. Yilan YicpgCCB184 103/uuRrabnu650-716Amh [facility] HospitalComment on above:Performed By: #### CBCMAN ####[facility] Qclizidwaf0009[address] [place], [place] [address]Dr. Yilan ChangPOIKILOCYTOSIS2+NormalThe [facility] CenterComment on above:Performed By: #### CBCMAN ####[facility] Wehkhympxs35[address] [place] [address]Dr. Yilan ChangRBC3.33 106/ul Critically low4.20-5.40[facility]Com[facility] on above:Performed By: #### CBCMAN ####[facility] Ozsfywmgfb5[address] [place] [address]Dr. Devin SureshRDW13.3 %Gqwbsu80.0-15.0The [facility] CenterComasc[facility] on above:Performed By: #### CBCMAN ####[facility] Omgrkypgxj2180[address] [place], [place] [address]Dr. Devin SureshSEG #3.95 103/ulNormal1.40-6.50[facility]Com[facility] on above:Performed By: #### CBCMAN ####[facility] Snzsrzioec7088[address] [place], [place] [address]Dr. Devin SureshSEG % 79.0 %Critically high43.0-75.0The [facility] CenterCom[facility] on above:Performed By: #### CBCMAN ####[facility] Vcgreguboq2922[address] [place], [place] [address]Dr. Devin ChangWBC5.0 103/ulNormal4.0-11.0The [facility] CenterCom[facility] on above:Performed By: #### CBCMAN ####[facility] Tybbpijmox3947[address] [place], [place] [address]Dr. Devin ChangECHOCARDIO M/2D COMPLETEon 34-62-3978AZITJDSWSV M/2D [facility] OF CARE GLUCOSEon 69-59-8567Ujlezqo [Mass/Vol]151 mg/dLCritically rhfd71-247UveMercy Health [facility] on above:Performed By: #### POCGLUC ####[facility] Swonumbodr2935[address] [place], [place] [address]Dr. Devin ChangGlucose [Mass/Vol]188 mg/dLCritically pfzv21-447RofPremier HealthComascension standish hospital on above: Performed By: #### POCGLUC ####[facility] Lawzfplvgx9985[address] [place], [place] [address]Dr. Devin ChangGlucose [Mass/Vol]243 mg/dLCritically yloc66-306ElfPremier HealthComascension standish hospital on above:Performed By: #### POCGLUC ####[facility] Gxmiamrgxx10[address] [place] [address]Dr. Yilan ChangGlucose [Mass/Vol]259 mg/dLCritically cydq19-689Lvi [facility] Comment on above:Performed By: #### POCGLUC ####[facility] Ywgjduurhi44[address] [place] [address]Dr. Yilan ChangPROF 14(COMP METB)on 91-97-2033Jtfcnyx [Mass/Vol]3.1 g/dLCritically low3.4-5.0The [facility] Comment on above:Performed By: #### CMP ####[facility] Cdkpdxstxd600[address] [place], [place] [address]Dr.Yilan ChangAlbumin/Globulin [Mass ratio] 1.1 {ratio}NormalThe [facility] CenterComment on above:Performed By: #### CMP ####[facility] Rytijglpct3678[address] [place], [place] [address]Dr. Yilan ChangALP [Catalytic activity/Vol]86 U/FQmnyfb76-862Fuu [facility] Comment on above:Performed By: #### CMP ####[facility] Vfkxaqsmvd9185[address] [place], [place] [address]Dr.Yilan ChangALT [Catalytic activity/Vol]12 U/LCritically fcb66-32Vsb [facility] CenterComment on above:Performed By: #### CMP ####[facility] Paexcdplwb3307[address] [place], [place] [address]Dr. Yilan ChangAnion gap [Moles/Vol]13.2 mmol/LNormalThe [facility] CenterComment on above:Performed By: #### CMP ####[facility] Vfvljztqpl7650[address] [place], [place] [address]Dr.Yilan ChangAST [Catalytic activity/Vol]13 U/L Critically luc55-16Zxp [facility] CenterComment on above:Performed By: #### CMP ####[facility] Kiaetosdfj9967[address] [place], [place] [address]Dr. Yilan ChangBilirubin [Mass/Vol]0.4 mg/dLNormal0.2-1.0The [facility] Comment on above:Performed By: #### CMP ####[facility] Olywdplsqj59[address] [place] [address]Dr.Yilan ChangCalcium [Mass/Vol]8.0 mg/dL Critically low8.5-10.1The [facility] CenterComment on above:Performed By: #### CMP ####[facility] Euatintduo8705[address] [place], [place] [address]Dr. Yilan ChangChloride [Moles/Vol]108 mmol/LCritically opif84-543Jvm [facility] CenterComment on above:Performed By: #### CMP ####[facility] Ebaytsnuzm0924[address] [place], [place] [address]Dr.Yilan ChangCO2 [Moles/Vol] 21.3 mmol/DKutwcx83.0-32.0The [facility] CenterComment on above:Performed By: #### CMP ####[facility] Boxkatvkxt299[address] [place], [place] [address]Dr.Yilan ChangCreatinine [Mass/Vol]0.76 mg/dLNormal0.55-1.02The [facility] CenterComment on above:Performed By: #### CMP ####[facility] Zpktsiwjxn1336[address] [place], [place] [address]Dr.Yilan ChangEGFR-AF CONGOLESE>60Normal>=60The [facility] CenterComment on above:Performed By: #### CMP ####[facility] Qmhfhwshmd1290[address] [place], [place] [address]Dr. Yilan ChangEGFR-NON AF CONGOLESE>60Normal>=60The [facility] CenterComment on above:Performed By: #### CMP ####[facility] Zbxipzisdq0209[address] [place], [place] [address]Dr.Yilan ChangGlobulin (S) [Mass/Vol]2.8 g/dLNormalThe [facility] CenterComment on above:Performed By: #### CMP ####[facility] Qohozaihnq2345[address] [place], [place] [address]Dr.Yilan ChangGlucose [Mass/Vol]235 mg/dLCritically vtoo84-721Obv [facility] CenterComment on above: Performed By: #### CMP ####[facility] Sllvvbbbrj4[address] [place] [address]Dr.Devin ChangPotassium [Moles/Vol]3.5 mmol/LNormal 3.5-5.1The [facility] CenterComment on above:Performed By: #### CMP ####[facility] Cypzwsgrun9[address] [place] [address]Dr.Devin Suresh Protein [Mass/Vol]5.9 g/dLCritically low6.4-8.2The [facility] CenterComment on above:Performed By: #### CMP ####[facility] Dyojhhazpk269[address] [place], [place] [address]Dr.Devin ChangSodium [Moles/Vol]139 mmol/LNormal 136-145The [facility] CenterComment on above:Performed By: #### CMP ####[facility] Zkxqqxjavj493[address] [place], [place] [address]Dr.Devin ChangUrea nitrogen [Mass/Vol]4.0 mg/dLCritically low7.0-18.0The [facility] CenterComment on above:Performed By: #### CMP ####[facility] Vgrebvszje3399[address] [place], [place] [address]Dr.Devin ChangUrea nitrogen/Creatinine [Mass ratio]5.3 mg/mgNormalThe [facility] CenterComasc[facility] stand[facility] hospital on above:Performed By: #### CMP ####[facility] Ggpgqnesjq7929[address] [place], [place] [address]Dr. Devin KerwinTROPONIN, HIGH SENSITIVITYon 92-98-8072BAUWEH8.5 pg/mLNormal4.0-51.3 The [facility] CenterComascension stand[facility] hospital on above:Result Comment: CUT-OFF POINTS HAVE BEEN ESTABLISHED BASED ON THE FOURTH UNIVERSAL DEFINITIONS OF MYOCARDIALINFARCTION. THE UPPER REFERENCE LIMIT (URL) OF TROPONIN, DEFINED THE 99TH PERCENTILE OFcT nI DISTRIBUTION IN A REFERENCE POPULATION, HAS BEEN CONFIRMED THE DECISION THRESHOLDFOR SD DIAGNOSIS.Performed By: #### HSTROPN ####[facility] Nyghzebjio3218[address] [place], [place] [address]Dr. Devin ChangHSTROP7.5 pg/mLNormal4.0-51.3The [facility] CenterComment on above:Result Comment: CUT-OFF POINTS HAVE BEEN ESTABLISHED BASED ON THE FOURTH UNIVERSAL DEFINITIONS OF MY OCARDIALINFARCTION. THE UPPER REFERENCE LIMIT (URL) OF TROPONIN, DEFINED THE 99TH PERCENTILE OFcTnI DISTRIBUTION IN A REFERENCE POPULATION, HAS BEEN CONFIRMED THE DECISION THRESHOLDFOR SD DIAGNOSIS.Performed By: #### HSTROPN ####[facility] Wpcgpzpbim569[address] [place], [place] [address]Dr. Yilan ChangHSTROP6.9 pg/mLNormal4.0-51.3The [facility] CenterComment on above: Result Comment: CUT-OFF POINTS HAVE BEEN ESTABLISHED BASED ON THE FOURTH UNIVERSAL DEFINITIONS OF MYOCARDIALINFARCTION. THE UPPER REFERENCE LIMIT (URL) OF TROPONIN, DEFINED THE 99TH PERCENTILE OFcTnI DISTRIBUTION IN A REFERENCE POPULATION, HAS BEEN CONFIRMED THE DECISION THRESHOLDFOR SD DIAGNOSIS. Performed By: #### HSTROPN ####[facility] Rflewkgvbm6978[address] [place], [place] [address]Dr. Tishlan ChangCBC AUTO DIFFon 91-47-7654LWYC #0.0 103/ulNormal0.0-0.1The [facility] CenterComment on above:Performed By: #### CBC ####[facility] Oeyspdsioi4939[address] [place], [place] [address]Dr. Tishlan ChangBasophils/100 WBC (Bld)0.4 %Normal0.2-2.0The [facility] CenterComment on above:Performed By: #### CBC ####[facility] Pkxpumpkea807[address] [place], [place] [address]Dr.Yilan ChangEO #0.1 103/ulNormal0.0-0.7The [facility] on above:Performed By: #### CBC ####[facility] Tcfdlmfkrq3145[address] [place], [place] [address]Dr.Yilan ChangEosinophils/100 WBC (Bld)2.3 %Normal0.9-7.0The [facility] CenterComment on above:Performed By: #### CBC ####[facility] Xsgdpoqevg1217[address] [place], [place] [address]Dr.Yilan ChangErythrocyte distribution width (RBC) [Ratio]13.8 %Normal 11.0-15.0The [facility] CenterComment on above:Performed By: #### CBC ####[facility] Vgtpvsxgly56232[address] [place], [place] [address]Dr. Devin ChangHematocrit (Bld) [Volume fraction]29.6 %Critically low36.0-48.0The [facility] HospitalComment on above:Performed By: #### CBC ####[facility] Mdnyhwmcwe6054[address] [place], [place] [address]Dr.Devin ChangHemoglobin (Bld) [Mass/Vol]10.0 g/dLCritically low12.0-16.0The [facility] CenterComment on above:Performed By: #### CBC ####[facility] Lbpqqfzqut3950[address] [place], [place] [address]Dr.Yilan ChangIG #0.02 10e3/ulNormal0.00-0.03The [facility] CenterComment on above:Performed By: #### CBC ####[facility] Ttirsrgfjs3704[address] [place], [place] [address]Dr.Devin ChangIG %0.4 %Normal 0.0-0.5The [facility] CenterComment on above:Performed By: #### CBC ####[facility] Frftnsfjxw8645[address] [place], [place] [address]Dr.Devin ChangLYMPH #2.4 103/ulNormal1.2-3.8The [facility] CenterComment on above:Performed By: #### CBC ####[facility] Dgtxwmgnbx030[address] [place], [place] [address]Dr.Devin ChangLymphocytes/100 WBC (Bld)46.2 %Ppccho85.5-60.0The [facility] CenterComment on above:Performed By: #### CBC ####[facility] Vjkmoyaldx218[address] [place], [place] [address]Dr.Devin ChangMANUAL DIFF REQ NONormalThe [facility] CenterComment on above:Performed By: #### CBC ####[facility] Vhzfeqvaeu44[address] [place] [address]Dr. Devin SureshH (RBC) [Entitic mass]30.7 leHvbvxk53.7-34.0The [facility] Comment on above:Performed By: #### CBC ####[facility] Djmqptvuyj8175[address] [place], [place] [address]Dr.Devin SureshHC (RBC) [Mass/Vol]33.8 g/dL Qvbmdl96.9-35.2The [facility] CenterComment on above:Performed By: #### CBC ####[facility] Hkznyzgrch4518[address] [place], [place] [address]Dr. Devin SureshV (RBC) [Entitic vol]90.8 jHFqvqpi13.0-99.0The [facility] Comment on above:Performed By: #### CBC ####[facility] Ujfqkacran775[address] [place], [place] [address]Dr.Tishemily SureshMONO #0.4 103/ulNormal0.3-0.8 The [facility] CenterComment on above:Performed By: #### CBC ####[facility] Qmtgjmxpow754[address] [place], [place] [address]Dr.Tishemily Suresh Monocytes/100 WBC (Bld)7.6 %Normal1.7-12.0The [facility] CenterComment on above: Performed By: #### CBC ####[facility] Mblkskwztp5969[address] [place], [place] [address]Dr.Devin KerwinNEUT #2.2 103/ulNormal1.4-6.5The [facility] CenterComment on above:Performed By: #### CBC ####[facility] Jopmhvktct815[address] [place], [place] [address]Dr.Devin KerwinNeutrophils/100 WBC (Bld)43.1 %Qkfcxs37.0-75.0The [facility] CenterComment on above:Performed By: #### CBC ####[facility] Khlujtxlvx5456[address] [place], [place] [address]Dr.Tishemily SureshPlatelet mean volume (Bld) [Entitic vol]8.7 fLCritically low 9.5-13.5The [facility] CenterComment on above:Performed By: #### CBC ####[facility] Oypqaibhuj42[address] [place] [address]Dr. eDvin CuyeuIQC689 103/tpHnkwzn967-543Qeg [facility] CenterComasc[facility] stand[facility] hospital on above: Performed By: #### CBC ####[facility] Qzxrycqvgg2610[address] [place], [place] [address]Dr.Devin ChangRBC3.26 106/ulCritically low4.20-5.40The [facility] CenterComment on above:Performed By: #### CBC ####[facility] Okfhjjtmvj9354[address] [place], [place] [address]Dr.Devin ChangWBC5.1 103/ul Normal4.0-11.0The [facility] CenterComasc[facility] on above:Performed By: #### CBC ####[facility] Yidowaeysp2084[address] [place], [place] [address]Dr. Devin [facility] GLUCOSEon 94-78-1693Knanzzn [Mass/Vol]129 mg/dL Critically dltn29-010ZvlPremier HealthComment on above:Performed By: #### POCGLUC ####[facility] Ynqqvplzsn847[address] [place], [place] [address]Dr. Devin ChangGlucose [Mass/Vol]157 mg/dLCritically fgqv85-729Ohp [facility] on above:Performed By: #### POCGLUC ####[facility] Tpkykzcfvn670[address] [place], [place] [address]Dr. Devin ChangGlucose [Mass/Vol]228 mg/dLCritically kgvl26-486Isd [facility] CenterComment on above: Performed By: #### POCGLUC ####[facility] Nqqxbyhsbe1349[address] [place], [place] [address]Dr. Yilan ChangGlucose [Mass/Vol]327 mg/dLCritically fxcx06-753IghPremier HealthComascension standish hospital on above:Performed By: #### POCGLUC ####[facility] Kjxnsxrlgn7324[address] [place], [place] [address]Dr. Yilan ChangPROF 14(COMP METB)on 47-50-1243Yiqdfky [Mass/Vol]2.9 g/dLCritically low3.4-5.0The [facility] CenterComment on above:Performed By: #### CMP ####[facility] Gtzktiupep[address] [place] [address]Dr. Yilan ChangAlbumin/Globulin [Mass ratio]1.1 {ratio}NormalThe [facility] Comment on above:Performed By: #### CMP ####[facility] Nkeybyurjt[address] [place], [place] [address]Dr.Yilan ChangALP [Catalytic activity/Vol]85 U/BFxrjeu86-039Dor [facility] CenterComment on above:Performed By: #### CMP ####[facility] Ydcdfgslwo17[address] [place], [place] [address]Dr. Yilan ChangALT [Catalytic activity/Vol]14 U/AFgpoqp20-22Auu [facility] Comment on above:Performed By: #### CMP ####[facility] Ihpbdkrrcp5969[address] [place], [place] [address]Dr.Yiemily ChangAnion gap [Moles/Vol]13.3 mmol/LNormalThe [facility] CenterComment on above:Performed By: #### CMP ####[facility] Qjzegpxdxx280[address] [place], [place] [address]Dr. Yilan ChangAST [Catalytic activity/Vol]11 U/LCritically exf89-41Tfs [facility] CenterComment on above:Performed By: #### CMP ####[facility] Cjyeqfdblf0764[address] [place], [place] [address]Dr.Yilan ChangBilirubin [Mass/Vol]0.2 mg/dLNormal0.2-1.0The [facility] CenterComment on above:Performed By: #### CMP ####[facility] Usmwyxgwhz304[address] [place], [place] [address]Dr.Yilan ChangCalcium [Mass/Vol]7.5 mg/dLCritically low8.5-10.1The [facility] CenterComment on above:Performed By: #### CMP ####[facility] Drhkbomeor636326 [address] [place], [place] [address]Dr.Yilan ChangChloride [Moles/Vol]109 mmol/LCritically ssfi90-192Eju [facility] CenterComment on above: Performed By: #### CMP ####[facility] Gwgyrkqflc3264[address] [place], [place] [address]Dr.Yilan ChangCO2 [Moles/Vol]21.6 mmol/LNormal 21.0-32.0The [facility] CenterComment on above:Performed By: #### CMP ####[facility] Xzjtlubvul5286[address] [place], [place] [address]Dr. Devin ChangCreatinine [Mass/Vol]1.15 mg/dLCritically high0.55-1.02The [facility] CenterComment on above:Performed By: #### CMP ####[facility] Umpkwsfrfb6530[address] [place], [place] [address]Dr.Tishlan ChangEGFR-AF CONGOLESE>60Normal>=60The [facility] CenterComment on above:Performed By: #### CMP ####[facility] Fjtlyfumnw037[address] [place], [place] [address]Dr. Tishlan ChangEGFR-NON AF RUNVZDVU58 mL/min/1.60b1Numymunhgx low>=60The [facility] CenterComment on above:Performed By: #### CMP ####[facility] Qutiwmqpdh834[address] [place], [place] [address]Dr.Tishlan ChangGlobulin (S) [Mass/Vol]2.6 g/dLNormalThe [facility] CenterComment on above:Performed By: #### CMP ####[facility] Buqqsivznf2401[address] [place], [place] [address]Dr.Tishlan ChangGlucose [Mass/Vol]268 mg/dLCritically bapy37-007Pen [facility] CenterComment on above:Performed By: #### CMP ####[facility] Tzawixivjf1314[address] [place], [place] [address]Dr.Yilan ChangPotassium [Moles/Vol]3.9 mmol/LNormal3.5-5.1The [facility] CenterComment on above: Performed By: #### CMP ####[facility] Euammldtxw446426 [address] [place], [place] [address]Dr.Yilan ChangProtein [Mass/Vol]5.5 g/dLCritically low 6.4-8.2The [facility] CenterComment on above:Performed By: #### CMP ####[facility] Rugjiyryjc537826 [address] [place], [place] [address]Dr.Devin Suresh Sodium [Moles/Vol]140 mmol/BHjdvcy017-788Dro [facility] CenterComment on above: Performed By: #### CMP ####[facility] Cehwmugzll410326 [address] [place], [place] [address]Dr.Yilan ChangUrea nitrogen [Mass/Vol]13.0 mg/dLNormal 7.0-18.0The [facility] CenterComment on above:Performed By: #### CMP ####[facility] Vhavnvkuhh222526 [address] [place], [place] [address]Dr. Tishlan ChangUrea nitrogen/Creatinine [Mass ratio]11.3 mg/mgNormalThe [facility] CenterComment on above:Performed By: #### CMP ####[facility] Zbctzeqrpd4657[address] [place], [place] [address]Dr.Tishlan ChangCBC AUTO DIFFon 93-03-1240MJWC #0.0 103/ulNormal0.0-0.1The [facility] CenterComment on above: Performed By: #### CBC ####[facility] Xyxoogjpqu928[address] [place], [place] [address]Dr.Yilan ChangBasophils/100 WBC (Bld)0.6 %Normal 0.2-2.0The [facility] CenterComment on above:Performed By: #### CBC ####[facility] Ujjuusymtn7164[address] [place], [place] [address]Dr.Yilan ChangEO # 0.1 103/ulNormal0.0-0.7The [facility] CenterComment on above:Performed By: #### CBC ####[facility] Hixjnctchv732[address] [place], [place] [address]Dr. Yilan ChangEosinophils/100 WBC (Bld)3.1 %Normal0.9-7.0The [facility] Comment on above:Performed By: #### CBC ####[facility] Fhvjkfsotf397[address] [place], [place] [address]Dr.Devin ChangErythrocyte distribution width (RBC) [Ratio]13.6 %Cxocal50.0-15.0The [facility] CenterComment on above: Performed By: #### CBC ####[facility] Jippljeawr909[address] [place], [place] [address]Dr.Devin ChangHematocrit (Bld) [Volume fraction]27.8 % Critically low36.0-48.0The [facility] HospitalComment on above:Performed By: #### CBC ####[facility] Lbymsyzjig9568[address] [place], [place] [address]Dr. Tishemily ChangHemoglobin (Bld) [Mass/Vol]9.6 g/dLCritically low12.0-16.0The [facility] CenterComment on above:Performed By: #### CBC ####[facility] Pqlsyyrsur579226 [address] [place], [place] [address]Dr.Yilan ChangIG #0.01 10e3/ulNormal0.00-0.03The [facility] CenterComment on above:Performed By: #### CBC ####[facility] Wfrrvvtijp9837[address] [place], [place] [address]Dr. Devin ChangIG %0.3 %Normal0.0-0.5The [facility] CenterComment on above:Performed By: #### CBC ####[facility] Obndrjdzuj574026 [address] [place], [place] [address]Dr.Tishlan ChangLYMPH #1.5 103/ulNormal1.2-3.8The [facility] Comment on above:Performed By: #### CBC ####[facility] Maxxynvpyi9855[address] [place], [place] [address]Dr.Tishlan ChangLymphocytes/100 WBC (Bld)41.2 %Bdqdyf86.5-60.0The [facility] CenterComment on above:Performed By: #### CBC ####[facility] Kcowilszhh9595[address] [place], [place] [address]Dr. Tishlan ChangMANUAL DIFF REQNONormalThe [facility] CenterComment on above: Performed By: #### CBC ####[facility] Rmtpggtyfy[address] [place] [address]Dr.Devin SureshH (RBC) [Entitic mass]31.0 pgNormal 26.7-34.0The [facility] CenterComment on above:Performed By: #### CBC ####[facility] Elhxmiofzf7[address] [place] [address]Dr. Devin KerwinHC (RBC) [Mass/Vol]34.5 g/sKFfaoko19.9-35.2The [facility] Comment on above:Performed By: #### CBC ####[facility] Lfjfmyhguh106[address] [place], [place] [address]Dr.Tishemily SureshMCV (RBC) [Entitic vol]89.7 fL Wpjmyc76.0-99.0The [facility] CenterComment on above:Performed By: #### CBC ####[facility] Scmhqmosmc5979[address] [place], [place] [address]Dr. Tishemily SureshMONO #0.4 103/ulNormal0.3-0.8The [facility] CenterComment on above: Performed By: #### CBC ####[facility] Uhxenyvcmb671526 [address] [place], [place] [address]Dr.Tishemily SureshMonocytes/100 WBC (Bld)10.0 %Normal 1.7-12.0The [facility] CenterComment on above:Performed By: #### CBC ####[facility] Ctilduqyzm2219[address] [place], [place] [address]Dr. Devin KerwinNEUT #1.6 103/ulNormal1.4-6.5The [facility] CenterComment on above: Performed By: #### CBC ####[facility] Ncabgvfhfc3414[address] [place], [place] [address]Dr.Tishemily SureshNeutrophils/100 WBC (Bld)44.8 %Normal 43.0-75.0The [facility] CenterComment on above:Performed By: #### CBC ####[facility] Pyxbflvtkt740826 [address] [place], [place] [address]Dr. Devin KerwinPlatelet mean volume (Bld) [Entitic vol]8.7 fLCritically low9.5-13.5 The [facility] HospitalComment on above:Performed By: #### CBC ####[facility] Qsctkmukua620[address] [place], [place] [address]Dr.Devin SureshPLT185 103/obIbtamd893-246Znd [facility] HospitalComment on above:Performed By: #### CBC ####[facility] Sapqtzagjx5495[address] [place], [place] [address]Dr. Devin SureshRBC3.10 106/ulCritically low4.20-5.40The [facility] HospitalComment on above:Performed By: #### CBC ####[facility] Hiolodxfod238[address] [place], [place] [address]Dr.Devin SureshWBC3.6 103/ulCritically low4.0-11.0The [facility] HospitalComment on above:Performed By: #### CBC ####[facility] Bdzgmgvllf600[address] [place], [place] [address]DrGonzalo Sun PANEL (PCR) on 53-98-3476Sjxqrbrgxm F 40/41Not detectedNormalNOT DETECTEDThe [facility] CenterComment on above:Performed By: #### ASHLEYL ####[facility] Okfbozuozn8901[address] [place], [place] [address]Dr. Devin SureshAstrovirusNot detectedNormalNOT DETECTEDThe [facility] CenterComment on above:Performed By: #### ASHLEYL ####[facility] Sexrmynezt8718[address] [place], [place] [address]Dr. Devin Nice. Diff toxin A/BNot detectedNormalNOT DETECTEDThe [facility] CenterComment on above:Performed By: #### BRENDAANEL ####[facility] Hjsqnxqlzv1630[address] [place], [place] [address]Dr. Devin Washburnpylobacter Not detectedNormalNOT DETECTEDThe [facility] CenterComment on above:Performed By: #### BRENDAANEL ####[facility] Yikwqtzeod759[address] [place], [place] [address]Dr. Devin SureshCryptosporidiumNot detectedNormalNOT DETECTEDThe [facility] CenterComment on above:Performed By: #### BRENDAANEL ####[facility] Zhbegxypps79[address] [place] [address]Dr. Devin Suresh Cyclos. CayetanensisNot detectedNormalNOT DETECTEDThe [facility] CenterComment on above:Performed By: #### BRENDAANEL ####[facility] Gpospryyza65[address] [place] [address]Dr. Yilan ChangE. Coli O363Cpz ApplicableNormal Not ApplicableThe [facility] CenterComment on above:Performed By: #### GIPANEL ####[facility] Brgsdcoybc8[address] [place] [address]Dr. Yilan ChangE. histolyticaNot detectedNormalNOT DETECTEDThe [facility] Comment on above:Performed By: #### ASHLEYL ####[facility] Lbbowiytyk4634[address] [place], [place] [address]Dr. Yilan ChangEAECNot detectedNormalNOT DETECTEDThe [facility] CenterComment on above:Performed By: #### ASHLEYL ####[facility] Fqiwxcndpt27[address] [place], [place] [address]Dr. Yilan ChangEIECNot detectedNormalNOT DETECTEDThe [facility] CenterComment on above:Performed By: #### ASHLEYL ####[facility] Knwspxuuqz3788[address] [place], [place] [address]Dr. Yilan ChangEPECNot detectedNormalNOT DETECTEDThe [facility] CenterComment on above:Performed By: #### ASHLEYL ####[facility] Opczjcyvxt7010[address] [place], [place] [address]Dr. Yilan ChangETEC Not detectedNormalNOT DETECTEDThe [facility] CenterComment on above:Performed By: #### BRENDAANEL ####[facility] Suxjpgxrbd86[address] [place] [address]Dr. Devin SureshG. LambliaNot detectedNormalNOT DETECTEDThe [facility] CenterComment on above:Performed By: #### BRENDAANEL ####[facility] Vaqaqagpkv9575[address] [place], [place] [address]Dr. Devin ChangGIPANEL CONTROLSPASSEDNormalThe [facility] CenterComment on above:Performed By: #### ANNE ####[facility] Ksejncnkel[address] [place] [id number]. Devin HuangL EVIN HEADERGI PANEL [facility] Comment on above:Performed By: #### ANNE ####[facility] Sknihcculo85[address] [place] [address]Dr. Devin HuangLHD ECOLIGI PANEL DIARRHEAGENIC E.COLI / SHIGELLAGrand Lake [facility] District Memorial HospitalComment on above: Performed By: #### ANNE ####[facility] Ucmriwtbyu9985[address] [place], [place] [address]Dr. Devin HuangLHD INFOSEE BELOWGrand Lake Joint Township District Memorial HospitalComascension [facility] on above:Result Comment: EAEC- Enteroaggregative E. Coli EPEC- Enteropathogenic E. Coli ETEC- Enterotoxigenic E. Coli lt/st STEC- Shigella-like toxin-producing E. Coli stx1/stx2 EIEC- Shigella/Enteroinvasive E. ColiPerformed By: #### ANNE ####[facility] Fzwygnghrv795326 [address] [place], [place] [address]Dr. Devin HuangLHD PARASITESGI PANEL PARASITESGrand Lake Joint Township District Memorial HospitalComment on above:Performed By: #### ANNE ####[facility] Dfnsvmdmpu90[address] [place] [address]Dr. Devin HuangLHD VIRUS GI PANEL VIRUSESGrand Lake Joint Township District Memorial HospitalComment on above:Performed By: #### ANNE ####[facility] Czstabivip7[address] [place], [place] [address]Dr. Devin ChangNorovirus GI/GIINot detectedNormalNOT DETECTEDThe [facility] CenterComasc[facility] hospital on above:Performed By: #### ANNE ####[facility] Cxxbyujjyu4477[address] [place], [place] [address]Dr. Devin Fleming. ShigelloidesNot detectedNormalNOT DETECTEDThe [facility] CenterComasc[facility] stand[facility] hospital on above: Performed By: #### ANNE ####[facility] Xhhrweyibx48[address] [place] [address]Dr. Devin ChangRotavirus ANot detectedNormalNOT DETECTEDThe [facility] CenterComment on above:Performed By: #### GIPANEL ####[facility] Gqykumtccq6768[address] [place], [place] [address]Dr. Yilan ChangSalmonellaNot detectedNormalNOT DETECTEDThe [facility] CenterComment on above:Performed By: #### GIPANEL ####[facility] Hwifzjixqk7129[address] [place], [place] [address]Dr. Tishlan ChangSapovirusNot detectedNormalNOT DETECTEDThe [facility] CenterComment on above:Performed By: #### GIPANEL ####[facility] Aahyjbfvgj3855[address] [place], [place] [address]Dr. Devin ChangSTECNot detectedNormalNOT DETECTEDThe [facility] CenterComasc[facility] on above:Performed By: #### GIPANEL ####[facility] Mpjilkktdr0580[address] [place], [place] [address]Dr. Devin ChangVibrioNot detectedNormalNOT DETECTEDThe [facility] CenterComment on above:Performed By: #### GIPANEL ####[facility] Pwvtoyszzb0496[address] [place], [place] [address]Dr. Devin Suresh Vibrio CholeraNot detectedNormalNOT DETECTEDThe [facility] CenterComasc[facility] hospital on above:Performed By: #### GIPANEL ####[facility] Elzvbbnqzm377[address] [place], [place] [address]Dr. Devin SureshY. EnterocoliticaNot detectedNormalNOT DETECTEDThe [facility] CenterComasc[facility] on above:Performed By: #### GIPANEL ####[facility] Sjmewkarkt08232[address] [place], [place] [address]Dr. Devin SureshPOINT [facility] GLUCOSEon 18-15-3032Ormblvl [Mass/Vol]199 mg/dL Critically xgif92-956DksPremier HealthComment on above:Performed By: #### POCGLUC ####[facility] Oyzjnduvpm315[address] [place], [place] [address]Dr. Devin ChangGlucose [Mass/Vol]193 mg/dLCritically afco44-151Cil [facility] HospitalComment on above:Performed By: #### POCGLUC ####[facility] Gykptvyzcy3426[address] [place], [place] [address]Dr. Yilan ChangGlucose [Mass/Vol]276 mg/dLCritically vvkl72-319Sat [facility] CenterComment on above: Performed By: #### POCGLUC ####[facility] Vcocqrglej8114[address] [place], [place] [address]Dr. Yilan ChangPROF 14(COMP METB)on 55-04-6399Mcdrpba [Mass/Vol]2.8 g/dLCritically low3.4-5.0The [facility] HospitalComment on above: Performed By: #### CMP ####[facility] Xjqsnilstb0505[address] [place], [place] [address]Dr.Yilan ChangAlbumin/Globulin [Mass ratio]1.1 {ratio} NormalThe [facility] CenterComment on above:Performed By: #### CMP ####[facility] Vkdlopjidr15112[address] [place], [place] [address]Dr.Yilan ChangALP [Catalytic activity/Vol]85 U/FTwvllg07-484Eog [facility] CenterComment on above: Performed By: #### CMP ####[facility] Cvzgkmfavn758[address] [place], [place] [address]Dr.Yilan ChangALT [Catalytic activity/Vol]13 U/L Critically frm53-26Vno [facility] CenterComment on above:Performed By: #### CMP ####[facility] Qmvvrtyqwu0809[address] [place], [place] [address]Dr. Yilan ChangAnion gap [Moles/Vol]10.2 mmol/LNormalThe [facility] HospitalComment on above:Performed By: #### CMP ####[facility] Fnnekfaveb4876[address] [place], [place] [address]Dr.Yilan ChangAST [Catalytic activity/Vol]12 U/L Critically nkz50-27Fov [facility] CenterComment on above:Performed By: #### CMP ####[facility] Cajnbonnxs4512[address] [place], [place] [address]Dr. Yilan ChangBilirubin [Mass/Vol]0.3 mg/dLNormal0.2-1.0The [facility] Comment on above:Performed By: #### CMP ####[facility] Yorwihacjo88[address] [place] [address]Dr.Yilan ChangCalcium [Mass/Vol]7.4 mg/dL Critically low8.5-10.1The [facility] CenterComment on above:Performed By: #### CMP ####[facility] Etlzpyutvv9930[address] [place], [place] [address]Dr. Yilan ChangChloride [Moles/Vol]107 mmol/VCbnpyy54-702Alq [facility] Comment on above:Performed By: #### CMP ####[facility] Pifzglasox8877[address] [place], [place] [address]Dr.Yilan ChangCO2 [Moles/Vol]23.4 mmol/L Rricwn55.0-32.0The [facility] CenterComment on above:Performed By: #### CMP ####[facility] Eyynttvxak8484[address] [place], [place] [address]Dr. Yilan ChangCreatinine [Mass/Vol]1.23 mg/dLCritically high0.55-1.02The [facility] CenterComment on above:Performed By: #### CMP ####[facility] Whhxzybnuc78[address] [place], [place] [address]Dr.Yilan ChangEGFR-AF RNLJEGHN15 mL/min/1.66t5Wktldmstmb low>=60The [facility] CenterComment on above: Performed By: #### CMP ####[facility] Gcnrdauawi2347[address] [place], [place] [address]Dr.Yilan ChangEGFR-NON AF EEVMLBFF33 mL/min/1.73m2 Critically low>=60The [facility] CenterComment on above:Performed By: #### CMP ####[facility] Idbjffnuwr1394[address] [place], [place] [address]Dr. Yilan ChangGlobulin (S) [Mass/Vol]2.5 g/dLNormalThe [facility] CenterComment on above:Performed By: #### CMP ####[facility] Rmpiabkunn0845[address] [place], [place] [address]Dr.Yilan ChangGlucose [Mass/Vol]284 mg/dLCritically cyxp84-556Nfl [facility] CenterComment on above:Performed By: #### CMP ####[facility] Iwqetldynb318[address] [place], [place] [address]Dr. Devin ChangPotassium [Moles/Vol]3.6 mmol/LNormal3.5-5.1The [facility] Comment on above:Performed By: #### CMP ####[facility] Afmmrgnkvf7787[address] [place], [place] [address]Dr.Yilan ChangProtein [Mass/Vol]5.3 g/dL Critically low6.4-8.2The [facility] CenterComment on above:Performed By: #### CMP ####[facility] Ikgkrjiqju3255[address] [place], [place] [address]Dr. Yilan ChangSodium [Moles/Vol]137 mmol/JSilfwg908-511Ped [facility] CenterComment on above:Performed By: #### CMP ####[facility] Apgxzyxacq836[address] [place], [place] [address]Dr.Tishlan ChangUrea nitrogen [Mass/Vol]14.0 mg/dLNormal 7.0-18.0The [facility] CenterComment on above:Performed By: #### CMP ####[facility] Rqnhlpqwwo5586[address] [place], [place] [address]Dr. Tishlan ChangUrea nitrogen/Creatinine [Mass ratio]11.4 mg/mgNormalThe [facility] CenterComment on above:Performed By: #### CMP ####[facility] Ubmbiulhdr4822[address] [place], [place] [address]Dr.Devin ChangBNPon 35-90-0746Vwshhyqjelz peptide B (Bld) [Mass/Vol]84.0 pg/mLNormal<=450.0The [facility] CenterComment on above:Performed By: #### CMADM, CMP, BNP, CRP ####[facility] Muscqkitwd8069[address] [place], [place] [address]Dr. Tishemily ChangCARDIAC LAURA ADMITon 04-73-3155LG [Catalytic activity/Vol]46 U/L Wzfrtb51-881Tiy [facility] CenterComment on above:Performed By: #### CMADM, CMP, BNP, CRP ####[facility] Rthimcoyss82[address] [place] [address]Dr. Devin SureshCK.MB [Mass/Vol]ng/mLNormal<=3.60The [facility] Comment on above:Performed By: #### CMADM, CMP, BNP, CRP ####[facility] Enbyqndafy0906[address] [place], [place] [address]Dr. Devin SureshHSTROP6.5 pg/mLNormal4.0-51.3The [facility] CenterComment on above:Result Comment: CUT-OFF POINTS HAVE BEEN ESTABLISHED BASED ON THE FOURTH UNIVERSAL DEFINITIONS OF MY OCARDIALINFARCTION. THE UPPER REFERENCE LIMIT (URL) OF TROPONIN, DEFINED THE 99TH PERCENTILE OFcTnI DISTRIBUTION IN A REFERENCE POPULATION, HAS BEEN CONFIRMED THE DECISION THRESHOLDFOR SD DIAGNOSIS.Performed By: #### CMADM, CMP, BNP, CRP ####[facility] Rkwdlbtiqf3648[address] [place], [place] [address]Dr. Devin SureshMYO75 ng/mLNormal9-82The [facility] CenterComment on above:Performed By: #### CMADM, CMP, BNP, CRP ####[facility] Admwhybfod932[address] [place], [place] [address]Dr. Devin SureshCBC AUTO DIFF on 16-14-4409PXUX #0.0 103/ulNormal0.0-0.1The [facility] CenterComment on above: Performed By: #### CBC ####[facility] Atdkrjivry5910[address] [place], [place] [address]Dr.Devin ChangBasophils/100 WBC (Bld)0.4 %Normal 0.2-2.0The [facility] CenterComment on above:Performed By: #### CBC ####[facility] Eoiwedmhic1210[address] [place], [place] [address]Dr.Devin ChangEO # 0.1 103/ulNormal0.0-0.7The [facility] CenterComment on above:Performed By: #### CBC ####[facility] Wkjbnjuoks088[address] [place], [place] [address]Dr. Devin ChangEosinophils/100 WBC (Bld)1.4 %Normal0.9-7.0The [facility] Comment on above:Performed By: #### CBC ####[facility] Fyghgjjbxe086[address] [place], [place] [address]Dr.Devin ChangErythrocyte distribution width (RBC) [Ratio]13.3 %Eedcue87.0-15.0The [facility] CenterComment on above: Performed By: #### CBC ####[facility] Bmjftkvvlh1339[address] [place], [place] [address]Dr.Devin ChangHematocrit (Bld) [Volume fraction]33.4 % Critically low36.0-48.0The [facility] CenterComment on above:Performed By: #### CBC ####[facility] Tnoiyeovlu33[address] [place], [place] [address]Dr. Devin ChangHemoglobin (Bld) [Mass/Vol]11.6 g/dLCritically low12.0-16.0The [facility] CenterComment on above:Performed By: #### CBC ####[facility] Dkqzfxwanb2264[address] [place], [place] [address]Dr.Yilan ChangIG #0.01 10e3/ulNormal0.00-0.03The [facility] CenterComment on above:Performed By: #### CBC ####[facility] Fduwzagvwv606[address] [place], [place] [address]Dr. Yilan ChangIG %0.2 %Normal0.0-0.5The [facility] CenterComment on above:Performed By: #### CBC ####[facility] Zrhdrqcvkr6866[address] [place], [place] [address]Dr.Yilan ChangLYMPH #1.3 103/ulNormal1.2-3.8The [facility] Comment on above:Performed By: #### CBC ####[facility] Inqpgsdjdt575[address] [place], [place] [address]Dr.Yilan ChangLymphocytes/100 WBC (Bld)24.5 %Jstlou86.5-60.0The [facility] CenterComment on above:Performed By: #### CBC ####[facility] Ngmcadmkku22[address] [place] [address]Dr. Devin ChangMANUAL DIFF REQNONormalThe [facility] CenterComment on above: Performed By: #### CBC ####[facility] Hvmyhmpfrk3346[address] [place], [place] [address]Dr.Devin SureshH (RBC) [Entitic mass]30.5 pgNormal 26.7-34.0The [facility] CenterComment on above:Performed By: #### CBC ####[facility] Vygdjepysg2346[address] [place], [place] [address]Dr. Devin SureshHC (RBC) [Mass/Vol]34.7 g/sVToqwvt21.9-35.2The [facility] Comment on above:Performed By: #### CBC ####[facility] Zuymhydwqq9165[address] [place], [place] [address]Dr.Devin SureshV (RBC) [Entitic vol]87.9 fL Cawflv02.0-99.0The [facility] CenterComment on above:Performed By: #### CBC ####[facility] Dlwtzjgbhk47[address] [place], [place] [address]Dr. Devin SureshMONO #0.4 103/ulNormal0.3-0.8The [facility] CenterComment on above: Performed By: #### CBC ####[facility] Oceucfvwka[address] [place], [place] [address]Dr.Devin ChangMonocytes/100 WBC (Bld)8.4 %Normal 1.7-12.0The [facility] CenterComment on above:Performed By: #### CBC ####[facility] Uigsleoltm83[address] [place], [place] [address]Dr. Devin ChangNEUT #3.4 103/ulNormal1.4-6.5The [facility] CenterComment on above: Performed By: #### CBC ####[facility] Ldfgxzvqxl6245[address] [place], [place] [address]Dr.Devin ChangNeutrophils/100 WBC (Bld)65.1 %Normal 43.0-75.0The [facility] CenterComment on above:Performed By: #### CBC ####[facility] Meylekuagb[address] [place] [address]Dr. Tishlan KerwinPlatelet mean volume (Bld) [Entitic vol]8.8 fLCritically low9.5-13.5 The [facility] CenterComment on above:Performed By: #### CBC ####[facility] Mjjzxgwzfj29[address] [place], [place] [address]Dr.Yilan IrorxHNB376 103/wdJpwmyq497-604Uqv [facility] CenterComment on above:Performed By: #### CBC ####[facility] Jutqjtruqo[address] [place], [place] [address]Dr. Yilan ChangRBC3.80 106/ulCritically low4.20-5.40The [facility] CenterComment on above:Performed By: #### CBC ####[facility] Oqqwzjmmpb[address] [place], [place] [address]Dr.Devin ChangWBC5.1 103/ulNormal4.0-11.0The [facility] CenterComment on above:Performed By: #### CBC ####[facility] Rujihhypgj3974[address] [place], [place] [address]Dr.Devin ChangCRPon 00-34-8953ICW4.4 mg/dLCritically high<=1.0The [facility] Hospitalment on above: Performed By: #### CMADM, CMP, BNP, CRP ####[facility] Ohbrlsvuhk40[address] [place], [place] [address]Dr. Devin SureshCULTURE BLOODon 08-02-2022 Microscopic examination of blood, cultureCulture Observations: NO GROWTH AT 5 DAYS.NormalThe [facility] CenterComment on above:Performed By: #### BLDCX2 ####[facility] Myemwvkqmb7898[address] [place], [place] [address]Dr. Devin SureshMicroscopic examination of blood, cultureCulture Observations: NO GROWTH AT 5 DAYS.NormalThe [facility] CenterComment on above:Performed By: #### BLDCX1 ####[facility] Svtcsmnxch[address] [place], [place] [address]Dr. Yilan ChangCULTURE URINEon 61-16-9955MPWVCOH URINECulture Observations: LIGHT GROWTH OF MIXED GENITAL ERIC. NO POTENTIAL PATHOGENS SEEN.NormalThe [facility] CenterComment on above:Performed By: #### URCX ####[facility] Squjdcjwtv59[address] [place], [place] [address]Cv. Devin ChangCovid-19 PCR (CVDTB)on 28-92-6231EUKC-CoV-2 (COVID-19) RNA EBONIE+probe Ql (Unsp spec)Not detectedNormalNOT DETECTEDThe [facility] CenterComment on above:Result Comment: When diagnostic testing is negative, the [...] for this test is supported by the [place] of Health and Human Service's declaration that circumstances exist to justify the emergency use of in vitro diagnostics for the detection and/or diagnosis of the virus that causes COVID-19. This EUA will remain in effect for the duration of the COVID-19declaration justifying emergency of IVDs, unless it is terminated or revoked by the FDA (after which the test may no longer be used).Performed By: #### CVDTBH ####[facility] Rhzbauicwr99[address] [place], [place] [address]Fs. Yilan ChangER URINE PROFILEon 54-04-5048Tpkgzskdk Ql (U)NegativeNormal NEGATIVEThe [facility] CenterComment on above:Performed By: #### REAGAN NEWSOMERO ####[facility] Vbieabwmzh1829 [place], [place]Dr. Yilan ChangClarity (U)CLEARNormalCLEARThe [facility] CenterComment on above: Performed By: #### MERCEDEZ UMICRO ####[facility] Teovgiepse8[address] [place], [place]Dr. Yilan ChangColor (U)LT. YELLOWNormalYELLOWTwin City Hospital HospitalComment on above:Performed By: #### REAGAN NEWSOMERO ####[facility] Nbnyvaeqfl10[address] [place], [place] [address]Dr. Devin Dodson A micrscopic examination will be performed if indicated.NormalThe [facility]ckley HospitalComment on above:Performed By: #### MERCEDEZ UMICRO ####[facility] Fnzlamjpvv5[address] [place], [place] [address]Dr. Yilan ChangGlucose Ql (U) >1000AbnormalNEGATIVEThe [facility] HospitalComment on above:Performed By: #### MERCEDEZ UMICRO ####[facility] Vcpipgurmo6540[address] [place], [place] [address]Dr. Yilan ChangHemoglobin Ql (U)TRACE-LYSEDAbnormalNEGATIVETwin City Hospital HospitalComment on above:Performed By: #### GEORGE NEWSOMEICRO ####[facility] Fjzjqtsnir[address] [place], [place] [address]r. Yilan ChangKetones Ql (U) NegativeNormalNEGATIVETwin City Hospital HospitalComment on above:Performed By: #### GEORGE NEWSOMEICRO ####[facility] Manmdnizhu6438[address] [place], [place] [address]Dr. Yilan ChangLEUKOCYTESNegativeNormalNEGATIVETwin City Hospital HospitalComment on above:Performed By: #### GEORGE NEWSOMEICRO ####[facility] Ytpmbfkvth26[address] [place], [place] [address]Dr. Yilan ChangNitrite Ql (U)NegativeNormal NEGATIVETwin City Hospital HospitalComment on above:Performed By: #### MERCEDEZ UMICRO ####[facility] Gaoodybigk180[address] [place], [place] [address]Dr. Yilan ChangpH (U)6.0 [pH]Normal5-9[facility] HospitalComment on above: Performed By: #### MERCEDEZ UMICRO ####[facility] Lxwhgqaein164[address] [place], [place] [address]Dr. Yilan ChangSPEC GRAVITY1.865Ednqgf1.005-<=1.025The [facility] CenterComment on above:Performed By: #### REAGAN NEWSOMERO ####[facility] Zyhmmdrqon5403 [address] Yilan ChangUA PROTEINNegativeNormalNEGATIVE/ TRACEThe [facility]inckley HospitalComment on above: Performed By: #### REAGAN NEWSOMERO ####[facility] Sabudcimtb2576 [address]r. Devin SureshUR MICRO INDINDICATEDNormalThe [facility] CenterComment on above:Performed By: #### REAGAN NEWSOMERO ####[facility] Rhguhnjtow[address] [place], [place] [address]r. Devin SureshUrobilinogen Qn (U)0.2 {Sheyla'U}/dLNormal0.2 - 1.0The [facility] CenterComment on above: Performed By: #### REAGAN NEWSOMERO ####[facility] Aflrcdanvq[address] [place], [place] [address]r. Devin ChangLACTATE/LACTIC ACIDon 34-43-3780Wxgusvd [Moles/Vol]1.2 mmol/LNormal0.4-2.0Premier HealthComment on above: Performed By: #### LACT ####[facility] Mmwattfyor6[address] [place], [place] [address]Dr. Devin ChangLactate [Moles/Vol]3.1 mmol/LCritically high0.4-2.0The [facility] CenterComment on above:Performed By: #### LACT ####[facility] Pyvqjwdboh1904[address] [place], [place] [address]Dr. Devin SureshPOINT OF CARE GLUCOSEon 83-70-9544Jdaudox [Mass/Vol]293 mg/dL Critically jgqg75-499BdrPremier HealthComment on above:Performed By: #### POCGLUC ####[facility] Gdrygimmla1918[address] [place], [place] [address]Dr. Devin ChangPOCGLUC>600Critically arhr03-639Kse [facility] CenterComment on above:Result Comment: Lab Draw OrderedPerformed By: #### POCGLUC ####[facility] Udqsdvwluf[address] [place] [address]Dr. Yilan ChangPROF 14(COMP METB)on 02-97-9967Dpnsjgc [Mass/Vol]3.6 g/dLNormal 3.4-5.0The [facility] CenterComment on above:Performed By: #### CMADM, CMP, BNP, CRP ####[facility] Jmldsmwmus14[address] [place] [address]Dr. Yilan ChangAlbumin/Globulin [Mass ratio]1.2 {ratio}NormalThe [facility] CenterComment on above:Performed By: #### CMADM, CMP, BNP, CRP ####[facility] Djickbgecb[address] [place] [address]Dr. Yilan ChangALP [Catalytic activity/Vol]113 U/SYhwfct82-331Vzs [facility] CenterComment on above:Performed By: #### CMADM, CMP, BNP, CRP ####[facility] Cacfqlklrf[address] [place], [place] [address]Dr. Yilan ChangALT [Catalytic activity/Vol]12 U/LCritically mrw75-67Rhs [facility] CenterComment on above: Performed By: #### CMADM, CMP, BNP, CRP ####[facility] Yhvqoafgwy9[address] [place] [address]Dr. Yilan ChangAnion gap [Moles/Vol]15.4 mmol/LNormalThe [facility] CenterComment on above:Performed By: #### CMADM, CMP, BNP, CRP ####[facility] Ulqcpeqagi4[address] [place] [address]Dr. Yilan ChangAST [Catalytic activity/Vol]13 U/LCritically ojg72-09Ulg [facility] CenterComment on above:Performed By: #### CMADM, CMP, BNP, CRP ####[facility] Zknodbgfwp7[address] [place] [address]Dr. Yilan ChangBilirubin [Mass/Vol]0.5 mg/dLNormal0.2-1.0The [facility] Comment on above:Performed By: #### CMADM, CMP, BNP, CRP ####[facility] Egufrlcgqe14[address] [place] [address]Dr. Yilan ChangCalcium [Mass/Vol]8.4 mg/dLCritically low8.5-10.1The [facility] CenterComment on above: Performed By: #### CMADM, CMP, BNP, CRP ####[facility] Usuettvyza8[address] [place] [address]Dr. Yilan ChangChloride [Moles/Vol]96 mmol/L Critically lmy25-112Awt [facility] CenterComment on above:Performed By: #### CMADM, CMP, BNP, CRP ####[facility] Quomynhvbw[address] [place], [place] [address]Dr. Yilan ChangCO2 [Moles/Vol]21.8 mmol/LNormal 21.0-32.0The [facility] CenterComment on above:Performed By: #### CMADM, CMP, BNP, CRP ####[facility] Xonezkqejc[address] [place], [place] [address]Dr. Yilan ChangCreatinine [Mass/Vol]1.54 mg/dLCritically high0.55-1.02The [facility] Hospitalment on above:Performed By: #### CMADM, CMP, BNP, CRP ####[facility] Peqkphvary[address] [place] [address]Dr. Yilan ChangEGFR-AF JJIHUGRR30 mL/min/1.96v0Xcjhkyoizj low>=60The [facility] Hospitalment on above:Performed By: #### CMADM, CMP, BNP, CRP ####[facility] Jmsknjuqyy6448 [place] [address]Dr. Yilan ChangEGFR- NON AF EOOVSCSU10 mL/min/1.30a9Ioabvxwyqe low>=60The [facility] Hospitalment on above:Performed By: #### CMADM, CMP, BNP, CRP ####[facility] Vkmhenwstl25[address] [place], [place] [address]Dr. Yilan ChangGlobulin (S) [Mass/Vol]3.1 g/dLNormalThe [facility] CenterComment on above:Performed By: #### CMADM, CMP, BNP, CRP ####[facility] Bmkhimyars4[address] [place] [address]Dr. Yilan ChangGlucose [Mass/Vol]562 mg/dLCritically rwmw16-956Fqy [facility] CenterComasc[facility] on above:Performed By: #### CMADM, CMP, BNP, CRP ####[facility] Wgcypusblt13[address] [place] [address]Dr. Yilan ChangPotassium [Moles/Vol]4.2 mmol/LNormal3.5-5.1The [facility] CenterComascension standish hospital on above:Performed By: #### CMADM, CMP, BNP, CRP ####[facility] Xtfpuihjoc69[address] [place], [place] [address]Dr. Yilan Suresh Protein [Mass/Vol]6.7 g/dLNormal6.4-8.2The [facility] CenterComment on above: Performed By: #### CMADM, CMP, BNP, CRP ####[facility] Xindsyjruf78[address] [place], [place] [address]Dr. Yilan ChangSodium [Moles/Vol]129 mmol/L Critically fiu539-814Kdq [facility] on above:Performed By: #### CMADM, CMP, BNP, CRP ####[facility] Agwcooahcl4753 [place] [address]Dr. Yilan ChangUrea nitrogen [Mass/Vol]18.0 mg/dL Normal7.0-18.0The [facility] CenterComascension standish hospital on above:Performed By: #### CMADM, CMP, BNP, CRP ####[facility] Eyonpsofhr[address] [place], [place] [address]Dr. Yilan ChangUrea nitrogen/Creatinine [Mass ratio]11.7 mg/mgNormal The [facility] CenterComment on above:Performed By: #### CMADM, CMP, BNP, CRP ####[facility] Xgvjqicuna6[address] [place], [place] [address]Dr. Yilan ChangPROTIMEon 04-99-7795NAR Coag (PPP) [Relative time]0.96 {INR}NormalThe [facility]ckley HospitalComment on above:Performed By: #### PT, PTT ####[facility] Hejpifihok86[address] [place], [place] [address]Dr. Devin SureshINR GUIDELINESSEE [facility] on above:Result Comment: DESIRED INR: 2.0 - 3.0 CONDITIONS NOT LISTED BELOW 2.5 - 3.5 FOR PROSTHETIC HEART VALVE REPLACEMENT 2.5 - 3.5 RECURRENT THROMBOSISPerformed By: #### PT, PTT ####[facility] Wglgprlunf11[address] [place], [place] [address]Dr. Devin SureshPT Coag (PPP) [Time]10.2 sNormal9.0-11.6The [facility] on above:Performed By: #### PT, PTT ####[facility] Dqcurrctep7[address] [place], [place] [address]Dr. Devin SureshPTTon 78-93-3918wQMI Coag (Bld) [Time]26.4 zInswlb17.3-36.2The [facility] on above:Performed By: #### PT, PTT ####[facility] Gmuzfymtvz[address] [place], [place] [address]Dr. Devin SureshSED RATE WESTERGRENon 32-25-3364GBG RATE22 mm/hrCritically high<=20The [facility] on above:Performed By: #### SEDR ####[facility] Okiwndowps[address] [place], [place] [address]Dr. Devin SureshURINE MICROSCOPIC ONLYon 18-99-0810HRHUSFNFTBLLYDwbqvxaoQASF SEENPremier HealthComascension standish hospital on above:Performed By: #### GEORGE NEWSOMEICRO ####[facility] Zjmpextxyg[address] [place], [place] [address]Dr. Devin Suresh Bacteria identified Cx Nom (U)INDICATEDNoSelect Medical Specialty Hospital - Cincinnati NorthComascension standish hospital on above:Performed By: #### MERCEDEZ UMICRO ####[facility] Pupuzzmqfu32[address] [place] [address]Dr. Devin SureshCASTNONE SEENNormalNONE SEENPremier HealthComascension standish hospital on above:Performed By: #### MERCEDEZ UMICRO ####[facility] Dorzxffxnr4578 [place] [id number]. Devin Suresh Crystals LM Nom (Urine sed)NONE SEENNormalNONE SEENPremier HealthComment on above:Performed By: #### MERCEDEZ UMICRO ####[facility] Wrrhzdzdgu6625 [place] [id number]. Devin ChangEpithelial cells LM Ql (Urine sed)RARENormalNONE SEEN /RAREThe [facility] CenterComment on above:Performed By: #### MERCEDEZ UMICRO ####[facility] Dsopnbhlbl4814 [place] [id number]. Devin ChangMUCOUSNONE SEENNormalNONE SEENPremier HealthComascension standish hospital on above:Performed By: #### MERCEDEZ UMICRO ####[facility] Mxhvgzcgij0348 [place] [address]Dr. Devin ChangRBC0-2 Normal0-2The [facility] CenterComascension standish hospital on above:Performed By: #### MERCEDEZ UMICRO ####[facility] Ihalkckvad4802 [place] [address]Dr. Devin ChangWBCNONE SEENNormalNONE SEENPremier HealthComascension standish hospital on above: Performed By: #### MERCEDEZ UMICRO ####[facility] Uwwpjelhqs5582 [place] [id number]. Devin ChangYEASTPRESENTAbnormalNONE SEENPremier HealthComascension standish hospital on above:Performed By: #### MERCEDEZ UMICRO ####[facility] Bsxxsllmou0885 [place] [id number]. Devin ChangXR CHEST 1 Von 51-59-2003CR CHEST 1 VNormalPremier HealthXR FOOT LT MIN 3 VIEWSon 02-14-2509XR FOOT LT MIN 3 VIEWSNormalThMartins Ferry HospitalBLOOD CULTURE ID PANELon 07-30-2022. baumanniiNot detectedNormalNOT DETECTEDThe [facility] CenterComascension standish hospital on above:Performed By: #### BCID2 ####[facility] Eeujgfiynt04[address] [place] [address]Dr. Yiemily ChangBacteriodes fragilisNot detectedNormalNOT DETECTEDThe [facility] CenterComment on above: Performed By: #### BCID2 ####[facility] Suemphwzuu4643 [place] [address]Dr. Yilan ChangBCID CONTROLSPASSEDGrand Lake Joint Township District Memorial HospitalComment on above:Performed By: #### BCID2 ####[facility] Nnagzaaufu76[address] [place] [address]Dr. Yiemily ChangBCIDBTHDBLOOD CULTURE BOTTLE INFORMATIONGrand Lake Joint Township District Memorial HospitalComment on above:Performed By: #### BCID2 ####[facility] Tjhqoyadjs[address] [place], [place] [address]Dr. Yiemily SureshYizfqQJMWJF7WUSXORDAJRUPR RESISTANCE GENESGrand Lake Joint Township District Memorial HospitalComascension standish hospital on above:Performed By: #### BCID2 ####[facility] Lruddatyjz35[address] [place], [place] [address]Dr. Yiemily SureshAjaklSWBJWQ5IVT BELOWGrand Lake Joint Township District Memorial HospitalComment on above:Result Comment: Note: Antimicrobial resitance can occur via multiple mechanisms. A Not Detected result for the Film[employer] antomicrobial resistance gene assays does not indicate antimicrobial susceptibility. Subculturing is required for species identification and susceptibility testing of isolates.Performed By: #### BCID2 ####[facility] Humfpfcxlh5968[address] [place], [place] [address]Dr. Yieimly KkilrWULGTV3SdxvpusqRqxupdAup Bellevue HospitalComment on above:Performed By: #### BCID2 ####[facility] Owhxkppcdc8916[address] [place], [place] [address]Dr. Yiemily SureshKutjoLHLMYB9NgqwadxhUpxafaAio Bellevue HospitalComment on above:Performed By: #### BCID2 ####[facility] Ogfeqwlakk32[address] [place], [place] [address]Dr. Yiemily KuzjpQUSHZQ2HFSOPGfkjovNcuMercy Health St. [facility] Comment on above:Performed By: #### BCID2 ####[facility] Tsmalxoqsz7813[address] [place], [place] [address]Dr. Yilan ChangBottle Set:Set 2NormalThe [facility] CenterComment on above:Performed By: #### BCID2 ####[facility] Urmydzhtgx9539[address] [place], [place] [address]Dr. Yilan ChangBottle: AnaerobicNormalThe Hinckley HospitalComment on above:Performed By: #### BCID2 ####[facility] Vpcrbwcuke4217[address] [place], [place] [address]Dr. Yiemily ChangC. neoformans/gattiiNot detectedNormalNOT DETECTEDThe [facility] CenterComment on above:Performed By: #### BCID2 ####[facility] Odtbwwcmqy5730[address] [place], [place] [address]Dr. Yilan ChangCandida albicansNot detectedNormalNOT DETECTEDThe [facility] CenterComment on above: Performed By: #### BCID2 ####[facility] Xcannagsau0115[address] [place], [place] [address]Dr. Yilan ChangCandida aurisNot detectedNormalNOT DETECTEDThe [facility] CenterComment on above:Performed By: #### BCID2 ####[facility] Iuoexqhpjt9638[address] [place], [place] [address]Dr. Tishlan ChangCandida glabrataNot detectedNormalNOT DETECTEDThe [facility] on above:Performed By: #### BCID2 ####[facility] Nodshyjaqk0698[address] [place], [place] [address]Dr. Tishlan ChangCandida KruseiNot detected NormalNOT DETECTEDThe [facility]. [facility] Hospitalment on above:Performed By: #### BCID2 ####[facility] Lbiibjnbxp4255[address] [place], [place] [address]Dr. Yilan ChangCandida ParapsilosisNot detectedNormalNOT DETECTEDThe [facility] CenterComment on above:Performed By: #### BCID2 ####[facility] Flurklecnz4695[address] [place], [place] [address]Dr. Yilan ChangCandida TropicalisNot detectedNormalNOT DETECTEDThe [facility] on above: Performed By: #### BCID2 ####[facility] Tujxlmsasl5474 [place] [address]Dr. Yilan ChangCTX-M Resistant GeneNot Applicable NormalNOT DETECTEDThe [facility] CenterComascension standish hospital on above:Performed By: #### BCID2 ####[facility] Tagxhzdmdp980[address] [place], [place] [address]Dr. Yilan ChangE. Cloacae complexNot detectedNormalNOT DETECTEDThe [facility] Comment on above:Performed By: #### BCID2 ####[facility] Jdhdilgree86[address] [place], [place] [address]Dr. Yilan ChangE. faecalisNot detectedNormal NOT DETECTEDThe [facility] CenterComment on above:Performed By: #### BCID2 ####[facility] Auwrhrohnk0190[address] [place], [place] [address]Dr. Yilan ChangE. faeciumNot detectedNormalNOT DETECTEDThe [facility] CenterComascension stand[facility] hospital on above:Performed By: #### BCID2 ####[facility] Acehpoyvpp1895[address] [place], [place] [address]Dr. Yilan ChangEnterobacteriaceaeNot detectedNormal NOT DETECTEDThe [facility] CenterComment on above:Performed By: #### BCID2 ####[facility] Webmuqggto0018[address] [place], [place] [address]Dr. Yilan ChangEscherichia coliNot detectedNormalNOT DETECTEDThe [facility] Comment on above:Performed By: #### BCID2 ####[facility] Akomuuuiph995[address] [place], [place] [address]Dr. Yilan ChangH. influenzaeNot detected NormalNOT DETECTEDThe [facility] CenterComascension stand[facility] hospital on above:Performed By: #### BCID2 ####[facility] Aaycjxgcpn8686[address] [place], [place] [address]Dr. Yilan ChangIMP Resistant GeneNot ApplicableNormalNOT DETECTEDThe [facility] CenterComascension stand[facility] hospital on above:Performed By: #### BCID2 ####[facility] Fwwxjksrvb5027[address] [place], [place] [address]Dr. Yilan ChangK. oxytocaNot detectedNormalNOT DETECTEDThe [facility] CenterComascension standish hospital on above:Performed By: #### BCID2 ####[facility] Aqxnhzyjbq9364[address] [place], [place] [address]Dr. Devin SureshK. pneumoniaeNot detectedNormalNOT DETECTEDThe [facility] CenterComment on above:Performed By: #### BCID2 ####[facility] Pllkjjwutw253[address] [place], [place] [address]Dr. Devin SureshKlebsiella aerogenesNot detectedNormalNOT DETECTEDThe [facility]ckley HospitalComment on above: Performed By: #### BCID2 ####[facility] Acdgtpoppv8824[address] [place], [place] [address]Dr. Devin SureshKPC Resistant GeneNot ApplicableNormal NOT DETECTEDThe [facility]ckley HospitalComment on above:Performed By: #### BCID2 ####[facility] Phkhbzpesj578[address] [place], [place] [address]Dr. Devin SureshList. monocytogenesNot detectedNormalNOT DETECTEDThe [facility] CenterComascension stand[facility] hospital on above:Performed By: #### BCID2 ####[facility] Yexnezunvw8046[address] [place], [place] [address]Dr. Devin SureshMcr-1 Resistant GeneNot ApplicableNormalNOT DETECTEDThe [facility] CenterComascension stand[facility] hospital on above:Performed By: #### BCID2 ####[facility] Dhkacsuszo6404[address] [place], [place] [address]Dr. Devin SureshmecA/CNot ApplicableNormalNOT DETECTED The [facility] CenterComasc[facility] stand[facility] hospital on above:Performed By: #### BCID2 ####[facility] Terjispcal8524[address] [place], [place] [address]Dr. Devin Suresh mecA/C MREJNot ApplicableNormalNOT DETECTEDThe [facility] CenterComasc[facility] stand[facility] hospital on above:Performed By: #### BCID2 ####[facility] Zxlwlnzudr22[address] [place], [place] [address]Dr. Devin SureshN. meningitidisNot detectedNormalNOT DETECTEDThe [facility] CenterComasc[facility] stand[facility] hospital on above:Performed By: #### BCID2 ####[facility] Vwqzpiptlt6[address] [place], [place] [address]Dr. Devin SureshNDM Resistant GeneNot ApplicableNormalNOT DETECTEDThe [facility] HospitalComascension stand[facility] hospital on above:Performed By: #### BCID2 ####[facility] Cliwnjwlcy7190 [place] [address]Dr. Yilan KjjndGlr-78-wmljQog ApplicableNormalNOT DETECTEDThe [facility] CenterComment on above:Performed By: #### BCID2 ####[facility] Qipavrsmby39[address] [place], [place] [address]Dr. Yilan ChangProteusNot detectedNormalNOT DETECTEDThe [facility] Comment on above:Performed By: #### BCID2 ####[facility] Awlgjvfcig6822 [place] [address]Dr. Yilan ChangPseud. aeruginosaNot detected NormalNOT DETECTEDThe [facility] CenterComment on above:Performed By: #### BCID2 ####[facility] Eswizkqfyj[address] [place], [place] [address]Dr. Yilan ChangS. maltophiliaNot detectedNormalNOT DETECTEDThe [facility] Comment on above:Performed By: #### BCID2 ####[facility] Xwzpmkjqnn08[address] [place], [place] [address]Dr. Yilan ChangSalmonellaNot detectedNormal NOT DETECTEDThe [facility] CenterComment on above:Performed By: #### BCID2 ####[facility] Afayeydqht274[address] [place], [place] [address]Dr. Yilan ChangSeratia marcescensNot detectedNormalNOT DETECTEDThe [facility] Comment on above:Performed By: #### BCID2 ####[facility] Ujwzvbeibd796[address] [place], [place] [address]Dr. Yilan ChangSite:RACNormalThe [facility] CenterComment on above:Performed By: #### BCID2 ####[facility] Irkfmxouwj6[address] [place], [place] [address]Dr. Yilan ChangStaph. aureus Not detectedNormalNOT DETECTEDThe [facility] CenterComment on above:Performed By: #### BCID2 ####[facility] Iybzvqgqcl4137[address] [place], [place] [address]Dr. Yilan ChangStaph. epidermidisNot detectedNormalNOT DETECTEDThe [facility] CenterComment on above:Performed By: #### BCID2 ####[facility] Vrkg[address]vwrsb[address] [place] [address]Dr. Devin SureshStaph. lugdunensisNot detectedNormalNOT DETECTEDThe [facility] CenterComment on above: Performed By: #### BCID2 ####[facility] Wndekzpioy4894[address] [place], [place] [address]Dr. Devin ChangStaphylococcusNot detectedNormalNOT DETECTEDThe [facility] CenterComment on above:Performed By: #### BCID2 ####[facility] Cbqxrosdig3928[address] [place], [place] [address]Dr. Devin SureshStrep. agalactiaeNot detectedNormalNOT DETECTEDThe [facility] Comment on above:Performed By: #### BCID2 ####[facility] Kdtbrmzqkd978[address] [place], [place] [address]Dr. Devin SureshStrep. pneumoniaeNot detected NormalNOT DETECTEDThe [facility] CenterComasc[facility] on above:Performed By: #### BCID2 ####[facility] Jsxgbeuhwk743126 [address] [place], [place] [address]Dr. Devin SureshStrep. pyogenesNot detectedNormalNOT DETECTEDThe [facility] Comment on above:Performed By: #### BCID2 ####[facility] Bwisnitafs713826 [address] [place], [place] [address]Dr. Devin SureshStreptococcusNot detected NormalNOT DETECTEDThe [facility] CenterComment on above:Performed By: #### BCID2 ####[facility] Vzoayoucxt883326 [address] [place], [place] [address]Dr. Devin SureshvanA/B Resist. GeneNot ApplicableNormalNOT DETECTEDThe [facility] CenterComasc[facility] on above:Performed By: #### BCID2 ####[facility] Qfawqgaijy372[address] [place], [place] [address]Dr. Devin SureshVIM Resistant GeneNot ApplicableNormalNOT DETECTEDThe [facility] CenterComasc[facility] on above: Performed By: #### BCID2 ####[facility] Gpseyhryji8928[address] [place], [place] [address]Dr. Devin SureshNICHOLAS [facility] AUTO DIFFon 28-22-5974WUVQ #0.0 103/ulNormal0.0-0.1The [facility] CenterComment on above:Performed By: #### CBC ####[facility] Ngriwfemig008326 [address] [place], [place] [address]Dr. Tishlan ChangBasophils/100 WBC (Bld)0.5 %Normal0.2-2.0The [facility] CenterComment on above:Performed By: #### CBC ####[facility] Fpvqxmdhhz2757[address] [place], [place] [address]Dr.Yilan ChangEO #0.1 103/ulNormal0.0-0.7The [facility] CenterComment on above:Performed By: #### CBC ####[facility] Gvpesdiseb215326 [address] [place], [place] [address]Dr.Devin ChangEosinophils/100 WBC (Bld)2.3 %Normal0.9-7.0The [facility] CenterComment on above:Performed By: #### CBC ####[facility] Eikjtfpddm1405[address] [place], [place] [address]Dr.Devin ChangErythrocyte distribution width (RBC) [Ratio]13.4 %Normal 11.0-15.0The [facility] CenterComment on above:Performed By: #### CBC ####[facility] Wnqbzmpitn068926 [address] [place], [place] [address]Dr. Devin ChangHematocrit (Bld) [Volume fraction]36.9 %Gdeguj97.0-48.0The [facility] CenterComment on above:Performed By: #### CBC ####[facility] Mdrsbxkwse5948[address] [place], [place] [address]Dr.Tishlan ChangHemoglobin (Bld) [Mass/Vol]12.9 g/rXRearuh58.0-16.0The [facility] CenterComment on above: Performed By: #### CBC ####[facility] Ssnuodjvpe6200[address] [place], [place] [address]Dr.Tishlan ChangIG #0.02 10e3/ulNormal0.00-0.03The [facility] CenterComment on above:Performed By: #### CBC ####[facility] Obizfjbras9310[address] [place], [place] [id number].Devin SureshIG %0.4 %Normal 0.0-0.5The [facility] CenterComment on above:Performed By: #### CBC ####[facility] Gymquxipje185126 [address] [place], [place] [address]Dr.Devin SureshLYMPH #0.9 103/ulCritically low1.2-3.8The [facility] CenterComment on above:Performed By: #### CBC ####[facility] Frrsevawof0315[address] [place], [place] [address]Dr.Devin SureshLymphocytes/100 WBC (Bld)16.4 %Critically low20.5-60.0 The [facility] CenterComment on above:Performed By: #### CBC ####[facility] Edotnmkqsf474326 [address] [place], [place] [address]Dr.Devin SureshMANUAL DIFF REQNONormalThe [facility] CenterComment on above:Performed By: #### CBC ####[facility] Dfxlvlpciy232926 [address] [place], [place] [address]Dr. Devin SureshH (RBC) [Entitic mass]30.9 vlPtjepr65.7-34.0[facility] Comment on above:Performed By: #### CBC ####[facility] Psdeqnepqy845826 [address] [place], [place] [address]Dr.Devin SureshMCHC (RBC) [Mass/Vol]35.0 g/dL Kezqbn04.9-35.2Prem[facility] HealthComment on above:Performed By: #### CBC ####[facility] Mgyhucfiet826326 [address] [place], [place] [address]Dr. Devin SureshMCV (RBC) [Entitic vol]88.3 zMMibxft18.0-99.0The [facility] Comment on above:Performed By: #### CBC ####[facility] Abdezstgvr9814[address] [place], [place] [address]Dr.Devin SureshMONO #0.4 103/ulNormal0.3-0.8 The [facility] CenterComment on above:Performed By: #### CBC ####[facility] Xkvnfdigdp8895 [place] [address]Dr.Devin Suresh Monocytes/100 WBC (Bld)6.9 %Normal1.7-12.0The [facility] CenterComment on above: Performed By: #### CBC ####[facility] Zpdsevmkzc602[address] [place], [place] [address]Dr.Devin SureshNEUT #4.2 103/ulNormal1.4-6.5The [facility] CenterComment on above:Performed By: #### CBC ####[facility] Gltsqibvae918926 [address] [place], [place] [address]Dr.Devin SureshNeutrophils/100 WBC (Bld)73.5 %Wiegpc04.0-75.0The [facility] CenterComment on above:Performed By: #### CBC ####[facility] Clnnlkpbws4469[address] [place], [place] [address]Dr.Devin SureshPlatelet mean volume (Bld) [Entitic vol]8.6 fLCritically low 9.5-13.5The [facility] CenterComment on above:Performed By: #### CBC ####[facility] Lypdvfjhjv4007[address] [place], [place] [address]Dr. Devin JkvmzIZH484 103/avNwpfbl540-903Nqd [facility] CenterComment on above: Performed By: #### CBC ####[facility] Vddnduuleh77112[address] [place], [place] [address]Dr.Devin SureshRBC4.18 106/ulCritically low4.20-5.40The [facility] CenterComment on above:Performed By: #### CBC ####[facility] Lzmzrrckoe540[address] [place], [place] [address]Dr.Devin ChangWBC5.7 103/ul Normal4.0-11.0The [facility] CenterComment on above:Performed By: #### CBC ####[facility] Zyiducnovw3544[address] [place], [place] [address]Dr. Devin SureshCULTURE BLOODon 49-78-5894Ncemaxwlzgf examination of blood, culture Culture Observations: NO GROWTH AT 5 DAYS.NormalThe [facility] CenterComment on above:Performed By: #### BLDCX1 ####[facility] Fztgerohkf32[address] [place] [address]Dr. Devin SureshCovid-19 PCR (CVDTB)on 52-94-8262QDFH-CoV-2 (COVID-19) RNA EBONIE+probe Ql (Unsp spec)Not detectedNormalNOT DETECTEDThe [facility] Comment on above:Result Comment: When diagnostic testing is negative, the possibility of a false negative should be considered inthe context of a patient's recent exposures and the presence of clinical signs and sympt omsconsistent with SARS-CoV-2.This test is not yet approved or cleared by the [place] FDA. When there are no FDA-approved or cleared tests available, and other criteria are met, FDA can make tests available under an emergency access mechanism called an Emergency Use Authorization (EUA). The EUA for this test is supported by the Electronic Scale Tester of Health and Human Service's declaration that circumstances exist to justify the emergency use of in vitro diagnostics for the detection and/or diagnosis of the virus that causes COVID-19. This EUA will remain in effect for the duration of the COVID-19declaration justifying emergency of IVDs, unless it is terminated or revoked by the FDA (after which the test may no longer be used).Performed By: #### CVDTBH ####[facility] Imbunjmwua[address] [place] [address]Dr. Devin ChangLACTATE/LACTIC ACIDon 70-57-7042Cjknefp [Moles/Vol]1.2 mmol/LNormal0.4-1.9The [facility] Comment on above:Performed By: #### LACT ####[facility] Zlfushawnv50[address] [place] [address]Dr. Devin SureshPROF 14(COMP METB)on 75-02-1768Scusuyj [Mass/Vol]4.1 g/dLNormal3.4-5.0The [facility] CenterComment on above:Performed By: #### CMP ####[facility] Eqiacssmds1822 [place] [address]Dr.Devin SureshAlbumin/Globulin [Mass ratio]1.2 {ratio} NormalThe [facility] CenterComment on above:Performed By: #### CMP ####[facility] Zkdejbzzhz26[address] [place] [address]Dr.Yilan ChangALP [Catalytic activity/Vol]114 U/FYrrasl33-443Tgy [facility] CenterComment on above:Performed By: #### CMP ####[facility] Pvfwkavset[address] [place] [address]Dr.Yilan ChangALT [Catalytic activity/Vol]20 U/LNormal 14-59The [facility] CenterComment on above:Performed By: #### CMP ####[facility] Cvdcsrgksk26[address] [place] [address]Dr.Yilan ChangAnion gap [Moles/Vol]13.5 mmol/LNormalThe [facility] CenterComment on above:Performed By: #### CMP ####[facility] Jwmhmbuwwg9735[address] [place], [place] [address]Dr.Yilan ChangAST [Catalytic activity/Vol]12 U/LCritically gqw30-38Jrw [facility] CenterComment on above:Performed By: #### CMP ####[facility] Thdxdcbqhz0064[address] [place], [place] [address]Dr.Yilan ChangBilirubin [Mass/Vol]0.4 mg/dLNormal0.2-1.0The [facility] on above:Performed By: #### CMP ####[facility] Hooqidsswp1555[address] [place], [place] [address]Dr.Yilan ChangCalcium [Mass/Vol]9.3 mg/dLNormal8.5-10.1The [facility] CenterComment on above:Performed By: #### CMP ####[facility] Uxartxinrz259[address] [place], [place] [address]Dr.Yilan ChangChloride [Moles/Vol]105 mmol/SQxtbwz12-116Zfe [facility] CenterComment on above:Performed By: #### CMP ####[facility] Tvoiiksuwd3996[address] [place], [place] [address]Dr.Yilan ChangCO2 [Moles/Vol]27.3 mmol/DCzrgog27.0-32.0The [facility] CenterComment on above:Performed By: #### CMP ####[facility] Kcsnvrtokx5906 [place] [address]Dr.Yilan ChangCreatinine [Mass/Vol]0.90 mg/dLNormal0.55-1.02The [facility] CenterComment on above: Performed By: #### CMP ####[facility] Zizddbxxdh5517 [place] [address]Dr.Yilan ChangEGFR-AF CONGOLESE>60Normal>=60The [facility] CenterComment on above:Performed By: #### CMP ####[facility] Maoilndltg9659[address] [place], [place] [address]Dr.Yilan ChangEGFR-NON AF CONGOLESE>60Normal>=60The [facility] CenterComment on above:Performed By: #### CMP ####[facility] Xxkhfgfmcc7516[address] [place], [place] [address]Dr. Yilan ChangGlobulin (S) [Mass/Vol]3.5 g/dLNormalThe [facility] CenterComment on above:Performed By: #### CMP ####[facility] Hifzfdpsdp2705[address] [place], [place] [address]Dr.Yilan ChangGlucose [Mass/Vol]114 mg/dLCritically bjov44-592Kem [facility] CenterComment on above:Performed By: #### CMP ####[facility] Wxwzvouvmh9858[address] [place], [place] [address]Dr. Yilan ChangPotassium [Moles/Vol]3.8 mmol/LNormal3.5-5.1The [facility] Comment on above:Performed By: #### CMP ####[facility] Unoxwxlmff6860[address] [place], [place] [address]Dr.Yilan ChangProtein [Mass/Vol]7.6 g/dL Normal6.4-8.2The [facility] CenterComment on above:Performed By: #### CMP ####[facility] Defsaszohh5029[address] [place], [place] [address]Dr. Yilan ChangSodium [Moles/Vol]142 mmol/PEflyhz862-865Act [facility] CenterComment on above:Performed By: #### CMP ####[facility] Ieburfykhw108[address] [place], [place] [address]Dr.Yilan ChangUrea nitrogen [Mass/Vol]12.0 mg/dLNormal 7.0-18.0The [facility] CenterComment on above:Performed By: #### CMP ####[facility] Vmxzuvwbep9510[address] [place], [place] [address]Dr. Yilan ChangUrea nitrogen/Creatinine [Mass ratio]13.3 mg/mgNormalThe [facility] CenterComment on above:Performed By: #### CMP ####[facility] Uqowjtifsh6448[address] [place], [place] [address]Dr.Yilan ChangXR CHEST 1 Von 63-84-5158GQ CHEST 1 VNormalPremier HealthXR FOOT LT MIN 3 VIEWSon 11-54-2877RI FOOT LT MIN 3 VIEWSNormSelect Medical Specialty Hospital - TrumbullACETAMINOPHENon 58-69-6321Vjtsieunjothe [Mass/Vol]ug/mLCritically low10.0-30.0The [facility] CenterComment on above:Performed By: #### ACET, SALYC ####[facility] Mfzmlhpxjd2187[address] [place], [place] [address]Dr. Tishlan ChangCBC AUTO DIFF on 07-29-5625ZAMY #0.1 103/ulNormal0.0-0.1The [facility] CenterComasc[facility] stand[facility] hospital on above: Performed By: #### CBC ####[facility] Muslshmwyr036[address] [place], [place] [address]Dr.Tishlan ChangBasophils/100 WBC (Bld)0.8 %Normal 0.2-2.0The [facility] CenterComment on above:Performed By: #### CBC ####[facility] Rfsuslnswm9115[address] [place], [place] [address]Dr.Yilan ChangEO # 0.2 103/ulNormal0.0-0.7The [facility] CenterComasc[facility] stand[facility] hospital on above:Performed By: #### CBC ####[facility] Kpzchfrbxo8089[address] [place], [place] [address]Dr. Tishlan ChangEosinophils/100 WBC (Bld)1.6 %Normal0.9-7.0The [facility] Comment on above:Performed By: #### CBC ####[facility] Oovcluonzq1544[address] [place], [place] [address]Dr.Tishemily ChangErythrocyte distribution width (RBC) [Ratio]12.9 %Smqrlj00.0-15.0The [facility] CenterComment on above: Performed By: #### CBC ####[facility] Rqlcjtxway4194[address] [place], [place] [address]Dr.Tishemily ChangHematocrit (Bld) [Volume fraction]35.5 % Critically low36.0-48.0The [facility] CenterComment on above:Performed By: #### CBC ####[facility] Bpcphdnwgh590[address] [place], [place] [address]Dr. Devin ChangHemoglobin (Bld) [Mass/Vol]12.4 g/pHFhrmwt32.0-16.0The [facility] CenterComment on above:Performed By: #### CBC ####[facility] Rotqpyqbkj5398[address] [place], [place] [address]Dr.Yiemily ChangIG #0.03 10e3/ulNormal0.00-0.03The [facility] CenterComment on above:Performed By: #### CBC ####[facility] Kgemlzgrcp3138[address] [place], [place] [address]Dr. Devin ChangIG %0.3 %Normal0.0-0.5The [facility] CenterComment on above:Performed By: #### CBC ####[facility] Harwmsfitq5147[address] [place], [place] [address]Dr.Tishlan ChangLYMPH #1.8 103/ulNormal1.2-3.8The [facility] Comment on above:Performed By: #### CBC ####[facility] Kisyglephv3747[address] [place], [place] [address]Dr.Tishlan ChangLymphocytes/100 WBC (Bld)19.5 %Critically low20.5-60.0The [facility] CenterComment on above:Performed By: #### CBC ####[facility] Pdcokwxydn63[address] [place] [address]Dr.Devin SureshMANUAL DIFF REQNONormalThe [facility] CenterComment on above: Performed By: #### CBC ####[facility] Oeckfpobut32[address] [place] [address]Dr.Devin SureshH (RBC) [Entitic mass]31.2 pgNormal 26.7-34.0The [facility] CenterComment on above:Performed By: #### CBC ####[facility] Bunsgnjvir9221 [place] [address]Dr. Devin SureshHC (RBC) [Mass/Vol]34.9 g/kSJqcunc47.9-35.2The [facility] Comment on above:Performed By: #### CBC ####[facility] Txddsbtlmb8989[address] [place], [place] [address]Dr.Devin SureshV (RBC) [Entitic vol]89.2 fL Toseyp19.0-99.0The [facility] CenterComment on above:Performed By: #### CBC ####[facility] Efalkpcezw0576[address] [place], [place] [address]Dr. Devin SureshMONO #0.5 103/ulNormal0.3-0.8The [facility] CenterComment on above: Performed By: #### CBC ####[facility] Acoxwcqmgy4298[address] [place], [place] [address]Dr.Devin ChangMonocytes/100 WBC (Bld)5.0 %Normal 1.7-12.0The [facility] CenterComment on above:Performed By: #### CBC ####[facility] Nmhzlcqixe6779 [place] [address]Dr. Devin SureshNEUT #6.8 103/ulCritically high1.4-6.5The [facility] CenterComment on above:Performed By: #### CBC ####[facility] Qvowkbapmv2387[address] [place], [place] [address]Dr.Devin SureshNeutrophils/100 WBC (Bld)72.8 %Normal 43.0-75.0The [facility] CenterComment on above:Performed By: #### CBC ####[facility] Farpeqlnap9400 [place] [address]Dr. Devin KerwinPlatelet mean volume (Bld) [Entitic vol]8.6 fLCritically low9.5-13.5 The [facility] HospitalComment on above:Performed By: #### CBC ####[facility] Khdlhnovxl7604[address] [place], [place] [address]Dr.Devin QgzvoVOJ287 103/tpSyqqoi883-628Ddm [facility] CenterComment on above:Performed By: #### CBC ####[facility] Gjjbvtgjte6876[address] [place], [place] [address]Dr. Devin ChangRBC3.98 106/ulCritically low4.20-5.40The [facility] CenterComment on above:Performed By: #### CBC ####[facility] Agdalsosut1987[address] [place], [place] [address]Dr.Devin ChangWBC9.3 103/ulNormal4.0-11.0The [facility] CenterComment on above:Performed By: #### CBC ####[facility] Nomciqsigj1985[address] [place], [place] [address]Dr.Devin SureshDRUG SCREEN RAPID (URINE)on 44-58-1540ZJKYymrxycgMfugnyLYSKCMFIQqh [facility]Com[facility] on above:Performed By: #### DRUGRPD ####[facility] Vfrxnjjako5636[address] [place], [place] [address]Dr. Devin ChangBARNegativeNormalNEGATIVEPremier HealthComment on above:Performed By: #### DRUGRPD ####[facility] Hibhtxxnfn3518[address] [place], [place] [address]Dr. Devin ChangBUP NegativeNormalNEGATIVEPremier HealthComment on above:Performed By: #### DRUGRPD ####[facility] Lglozjblie1680[address] [place], [place] [address]Dr. Devin ChangBZONegativeNormalNEGATIVEPremier HealthComment on above:Performed By: #### DRUGRPD ####[facility] Obfqblkkzd2150[address] [place], [place] [address]Dr. Devin SureshCOCNegativeNormalNEGATIVETwin City Hospital HospitalComment on above:Performed By: #### DRUGRPD ####[facility] Lrwxhmwoye557[address] [place], [place] [address]Dr. Devin SureshCUT-OFFSSEE BELOWGrand Lake Joint Township District Memorial HospitalComment on above:Result Comment: AMP (Amphetamine): 500ng/mL, BAR (Barbituates): 200 ng/mL, BZO (Benzodiazepines): 15 0 ng/mL, BUP (Buprenorphine): 10 ng/mL, KATHY (Cocaine): 150 ng/mL, mAMP (Methamphetamine): 500 ng/mL, MTD (Methadone): 200 ng/mL, OPI (Opiates): 100 ng/mL, OXY (Oxycodone): 100 ng/mL, PCP (Phencyclidine): 25 ng/mL, PPX (Propoxyphene): 300 ng/mL, THC (Cannabinoids): 50 ng/mL, TCA (Trycyclic Antidepressants): 300 ng/mLPerformed By: #### DRUGRPD ####[facility] Bupikzakab4389[address] [place], [place] [address]Dr. Devin SureshDRUG CUT HEADERDRUG CLASS TEST SYSTEM CUT-OFF CONCENTRATIONS ARE FOLLOWS:NormalThe [facility] CenterComment on above:Performed By: #### DRUGRPD ####[facility] Jfgjggsgqo1847[address] [place], [place] [address]Dr. Devin SureshmAMP NegativeNormalNEGATIVETwin City Hospital HospitalComment on above:Performed By: #### DRUGRPD ####[facility] Rjwfgtaxta4466[address] [place], [place] [address]Dr. Devin SureshMTDNegativeNormalNEGATIVETwin City Hospital HospitalComment on above:Performed By: #### DRUGRPD ####[facility] Idcfdqoycw617[address] [place], [place] [address]Dr. Devin SureshOPINegativeNormalNEGATIVETwin City Hospital HospitalComment on above:Performed By: #### DRUGRPD ####[facility] Ijoijbdybi9256[address] [place], [place] [address]Dr. Yilan ChangOXYNegative NormalNEGATIVEPremier HealthComment on above:Performed By: #### DRUGRPD ####[facility] Ezfyfizszn1060[address] [place], [place] [address]Dr. Yilan ChangPCPNegativeNormalNEGATIVETwin City Hospital HospitalComment on above: Performed By: #### DRUGRPD ####[facility] Zzzjxofrcz1707[address] [place], [place] [address]Dr. Yilan ChangPPXNegativeNormalNEGATIVEPremier HealthComment on above:Performed By: #### DRUGRPD ####[facility] Tkmwpiddan1716[address] [place], [place] [address]Dr. Yilan ChangTCAPositive AbnormalNEGATIVEPremier HealthComment on above:Performed By: #### DRUGRPD ####[facility] Asxqzktbfj840[address] [place], [place] [address]Dr. Yilan ChangTHCNegativeNormalNEGATIVEPremier HealthComment on above: Performed By: #### DRUGRPD ####[facility] Bzdkqcjetx946[address] [place], [place] [address]Dr. Yilan ChangER URINE PROFILEon 54-43-8238Zxzvktlif Ql (U)NegativeNormalNEGATIVEPremier HealthComascension standish hospital on above:Performed By: #### ERUR ####[facility] Kroobbkhem7319[address] [place], [place] [address]Dr. Yilan ChangClarity (U)CLEARNormalCLEARPremier HealthComment on above:Performed By: #### ERUR ####[facility] Ufuzbcahoq7554[address] [place], [place] [address]Dr. Yilan ChangColor (U)LT. YELLOWNormalYELLOWPremier HealthComment on above:Performed By: #### ERUR ####[facility] Bowehylnqe614[address] [place], [place] [address]Dr. Yilan ChangERUAHDA micrscopic examination will be performed if indicated.NormalPremier HealthComment on above:Performed By: #### ERUR ####[facility] Ahcxubkdbf8220[address] [place], [place] [address]Dr. Devin SureshGlucose Ql (U) 500 mg/dlAbnormalNEGATIVETwin City Hospital HospitalComment on above:Performed By: #### ERUR ####[facility] Keszrprvjf4147[address] [place], [place] [address]Dr. Tishlan KerwinHemoglobin Ql (U)TRACE-INTACTAbnormalNEGATIVETwin City Hospital HospitalComment on above:Performed By: #### ERUR ####[facility] Hwzdcqovbf512[address] [place], [place] [address]Dr. Tishlan ChangKetones Ql (U) NegativeNormalNEGATIVETwin City Hospital HospitalComment on above:Performed By: #### ERUR ####[facility] Vifrxubacz876[address] [place], [place] [address]Dr. Devin ChangLEUKOCYTESNegativeNormalNEGATIVETwin City Hospital HospitalComment on above:Performed By: #### ERUR ####[facility] Fipkwyhaji[address] [place], [place] [address]Dr. Devin ChangNitrite Ql (U)NegativeNormalNEGATIVETwin City Hospital HospitalComment on above:Performed By: #### ERUR ####[facility] Bzavhpvjvl6[address] [place], [place] [address]Dr. Devin ChangpH (U)6.0 [pH] Normal5-9Premier HealthComment on above:Performed By: #### ERUR ####[facility] Hmfagqtxoe5956[address] [place], [place] [address]Dr. Tishlan ChangSPEC GRAVITY1.126Orogea9.005-<=1.025The Hinckley HospitalComment on above:Performed By: #### ERUR ####[facility] Nwsiihcbav9109[address] [place], [place] [address]Dr. Yilan ChangUA PROTEINTRACENormalNEGATIVE/ TRACEThe Hinckley HospitalComment on above:Performed By: #### ERUR ####[facility] Hdbolrwmwy2909[address] [place], [place] [address]Dr. Yilan ChangUR MICRO IND NOT INDICATEDNormalThe Hinckley HospitalComment on above:Performed By: #### ERUR ####[facility] Zbxcmncxtd3922[address] [place], [place] [address]Dr. Yilan ChangUrobilinogen Qn (U)0.2 {Sheyla'U}/dLNormal0.2 - 1.0The [facility] CenterComment on above:Performed By: #### ERUR ####[facility] Nwasnqfjig7820[address] [place], [place] [address]Dr. Yilan ChangETHANOL (BLD ALC)on 26-63-1693JKQ NOTENOTE: 80 mg/dl is the legal limit for a blood alcohol levelNoSelect Medical Specialty Hospital - Cincinnati NorthComment on above:Performed By: #### ETH ####[facility] Srcvyiipjr8536[address] [place], [place] [address]Dr. Yilan ChangEthanol [Mass/Vol]mg/dLNoSelect Medical Specialty Hospital - Cincinnati NorthComment on above: Performed By: #### ETH ####[facility] Regexrzcrt8728[address] [place], [place] [address]Dr.Yilan ChangPROF CHEM 8 (BAS METB)on 95-72-2074Svcma gap [Moles/Vol]12.4 mmol/LNormalThe [facility] CenterComment on above:Performed By: #### BMP ####[facility] Rsldiqbesy0635[address] [place], [place] [address]Dr.Yilan ChangCalcium [Mass/Vol]8.6 mg/dLNormal8.5-10.1The [facility] CenterComment on above:Performed By: #### BMP ####[facility] Xjuvvdlrbq9626[address] [place], [place] [address]Dr.Yilan ChangChloride [Moles/Vol]103 mmol/GNksvhm82-866Idt Hinckley HospitalComment on above:Performed By: #### BMP ####[facility] Vyhntmemmi6834[address] [place], [place] [address]Dr.Yilan ChangCO2 [Moles/Vol]27.5 mmol/ADfkpms33.0-32.0The Hinckley HospitalComment on above:Performed By: #### BMP ####[facility] Ehnzppospz305[address] [place], [place] [address]Dr.Yilan ChangCreatinine [Mass/Vol]1.10 mg/dLCritically high0.55-1.02The [facility] CenterComment on above:Performed By: #### BMP ####[facility] [address] [place] [address]Dr.Yilan ChangEGFR-AF CONGOLESE>60Normal>=60The [facility] CenterComment on above:Performed By: #### BMP ####[facility] Hsbsmcedpw5169[address] [place], [place] [address]Dr.Yilan ChangEGFR-NON AF DMTSKUWM17 mL/min/1.54z7Fkvffjdmyj low>=60The [facility] CenterComment on above: Performed By: #### BMP ####[facility] Nlkxpjeovy444[address] [place], [place] [address]Dr.Yilan ChangGlucose [Mass/Vol]253 mg/dLCritically ymjm02-858Fui [facility] CenterComment on above:Performed By: #### BMP ####[facility] Kaqngtfrsl539[address] [place], [place] [address]Dr. Tishlan ChangPotassium [Moles/Vol]3.9 mmol/LNormal3.5-5.1The [facility] Comment on above:Performed By: #### BMP ####[facility] Luroeetelx2998[address] [place], [place] [address]Dr.Yilan ChangSodium [Moles/Vol]139 mmol/L Rkdjbp824-117Ogn [facility] CenterComment on above:Performed By: #### BMP ####[facility] Llxflfohfo217[address] [place], [place] [address]Dr. Yilan ChangUrea nitrogen [Mass/Vol]18.0 mg/dLNormal7.0-18.0The [facility] Comment on above:Performed By: #### BMP ####[facility] Kfoputsowd8926[address] [place], [place] [address]Dr.Yilan ChangUrea nitrogen/Creatinine [Mass ratio]16.4 mg/mgNormalThe [facility] CenterComment on above:Performed By: #### BMP ####[facility] Lplkvwzhyy666[address] [place], [place] [address]Dr. Yilan ChangSALICYLATEon 62-55-0079TYOBHWZXFM<2.8Normal<=19.9The [facility] CenterComment on above:Performed By: #### RHEA BUI ####[facility] [address]qk[address] [place] [address]Dr. Devin ChangCBC AUTO DIFF on 38-39-7937NRID #0.1 103/ulNormal0.0-0.1The [facility] CenterComment on above: Performed By: #### CBC ####[facility] Ilcinuvjhe3701[address] [place], [place] [address]Dr.Devin ChangBasophils/100 WBC (Bld)0.8 %Normal 0.2-2.0The [facility] CenterComment on above:Performed By: #### CBC ####[facility] Xqdduoheky1577[address] [place], [place] [address]Dr.Yilan ChangEO # 0.2 103/ulNormal0.0-0.7The [facility] CenterComment on above:Performed By: #### CBC ####[facility] Tkqcgtcite1984[address] [place], [place] [address]Dr. Devin ChangEosinophils/100 WBC (Bld)2.1 %Normal0.9-7.0The [facility] Comment on above:Performed By: #### CBC ####[facility] Zupokuqfdm6930[address] [place], [place] [address]Dr.Devin ChangErythrocyte distribution width (RBC) [Ratio]12.6 %Zuscjp24.0-15.0The [facility] CenterComment on above: Performed By: #### CBC ####[facility] Svxbwrdwll9489[address] [place], [place] [address]Dr.Devin ChangHematocrit (Bld) [Volume fraction]34.9 % Critically low36.0-48.0The [facility] CenterComment on above:Performed By: #### CBC ####[facility] Qugxltvssy1685[address] [place], [place] [address]Dr. Devin ChangHemoglobin (Bld) [Mass/Vol]12.3 g/pPZlvgah40.0-16.0The [facility] CenterComment on above:Performed By: #### CBC ####[facility] Cekotvjtan319[address] [place], [place] [address]Dr.Devin SureshIG #0.03 10e3/ulNormal0.00-0.03The [facility] CenterComment on above:Performed By: #### CBC ####[facility] Nbcftdfleh5909[address] [place], [place] [address]Dr. Devin SureshIG %0.4 %Normal0.0-0.5The [facility] CenterComment on above:Performed By: #### CBC ####[facility] Kzyianzzue235[address] [place], [place] [address]Dr.Devin SureshLYMPH #1.7 103/ulNormal1.2-3.8The [facility] Comment on above:Performed By: #### CBC ####[facility] Wkdahzavrz1555[address] [place], [place] [address]Dr.Devin Hernandezmphocytes/100 WBC (Bld)20.0 %Critically low20.5-60.0The [facility] CenterComment on above:Performed By: #### CBC ####[facility] Xqfbrphwde6097[address] [place], [place] [address]Dr.Devin SureshMANUAL DIFF REQNONormalThe [facility] CenterComment on above: Performed By: #### CBC ####[facility] Gdhfxalfvx2650[address] [place], [place] [address]Dr.Devin SureshHUDSON VAL[facility] (RBC) [Entitic mass]29.6 pgNormal 26.7-34.0The [facility] CenterComment on above:Performed By: #### CBC ####[facility] Gxjobcmhoj0224[address] [place], [place] [address]Dr. Devin SureshHC (RBC) [Mass/Vol]35.2 g/yBVepdmq85.9-35.2The [facility] Comment on above:Performed By: #### CBC ####[facility] Zmhfrrjqpg889[address] [place], [place] [address]Dr.Devin SureshV (RBC) [Entitic vol]83.9 fL Pmpttn66.0-99.0The [facility] CenterComment on above:Performed By: #### CBC ####[facility] Dswrnppkue1214[address] [place], [place] [address]Dr. Devin SureshMONO #0.4 103/ulNormal0.3-0.8The [facility] CenterComment on above: Performed By: #### CBC ####[facility] Nzdlgdewpt9917[address] [place], [place] [address]Dr.Devin ChangMonocytes/100 WBC (Bld)5.2 %Normal 1.7-12.0The [facility] CenterComment on above:Performed By: #### CBC ####[facility] Hwlxuacvbe108[address] [place], [place] [address]Dr. Devin SureshNEUT #6.0 103/ulNormal1.4-6.5The [facility] CenterComment on above: Performed By: #### CBC ####[facility] Syljjzsgmp0459[address] [place], [place] [address]Dr.Devin ChangNeutrophils/100 WBC (Bld)71.5 %Normal 43.0-75.0The [facility] CenterComment on above:Performed By: #### CBC ####[facility] Flztiatvgh8328[address] [place], [place] [address]Dr. Devin SureshPlatelet mean volume (Bld) [Entitic vol]8.4 fLCritically low9.5-13.5 The [facility] CenterComment on above:Performed By: #### CBC ####[facility] Dsvvmpatro825[address] [place], [place] [address]Dr.Devin LxxcxTDC780 103/dfFqtsia431-048Qhu [facility] CenterComment on above:Performed By: #### CBC ####[facility] Hnrwwcqovs926[address] [place], [place] [address]Dr. Tishemily SureshRBC4.16 106/ulCritically low4.20-5.40The [facility] CenterComment on above:Performed By: #### CBC ####[facility] Pmselsxpbo6508[address] [place], [place] [address]Dr.Devin ChangWBC8.4 103/ulNormal4.0-11.0The [facility] CenterComment on above:Performed By: #### CBC ####[facility] Mekojqjfhn1270[address] [place], [place] [address]Dr.Devin ChangPROF 14(COMP METB)on 51-16-5644Iixmlpj [Mass/Vol]3.4 g/dLNormal3.4-5.0The [facility] Comment on above:Performed By: #### CMP ####[facility] Kwwobgxozb9779[address] [place], [place] [address]Dr.Devin ChangAlbumin/Globulin [Mass ratio] 1.0 {ratio}NormalThe [facility] CenterComment on above:Performed By: #### CMP ####[facility] Ygigbbxwwd3895[address] [place], [place] [address]Dr. Devin ChangALP [Catalytic activity/Vol]108 U/BPprhvi45-577Beo [facility] Comment on above:Performed By: #### CMP ####[facility] Fuobzveeks0144[address] [place], [place] [address]Dr.Yiemily ChangALT [Catalytic activity/Vol]15 U/QHapycg61-45Pvd [facility] CenterComment on above:Performed By: #### CMP ####[facility] Xofnpqsocp678[address] [place], [place] [address]Dr. Devin ChangAnion gap [Moles/Vol]14.6 mmol/LNormalThe [facility] CenterComment on above:Performed By: #### CMP ####[facility] Oqviqfhcen8898[address] [place], [place] [address]Dr.Tishlan ChangAST [Catalytic activity/Vol]11 U/L Critically wkb44-15Nuc [facility] CenterComment on above:Performed By: #### CMP ####[facility] Rlpfaxvkrb4099[address] [place], [place] [address]Dr. Tishemily ChangBilirubin [Mass/Vol]0.4 mg/dLNormal0.2-1.0The [facility] Comment on above:Performed By: #### CMP ####[facility] Hkzofhwdyl45[address] [place], [place] [id number].Yilan ChangCalcium [Mass/Vol]8.8 mg/dL Normal8.5-10.1The [facility] CenterComment on above:Performed By: #### CMP ####[facility] Ibkwukfrlx6138[address] [place], [place] [address]Dr. Yilan ChangChloride [Moles/Vol]104 mmol/HHmddxp18-723Tww [facility] Comment on above:Performed By: #### CMP ####[facility] Pxlvllrnbj2008[address] [place], [place] [address]Dr.Yilan ChangCO2 [Moles/Vol]24.2 mmol/L Banibe02.0-32.0The [facility] CenterComment on above:Performed By: #### CMP ####[facility] Uczksybztp004[address] [place], [place] [address]Dr. Yilan ChangCreatinine [Mass/Vol]1.35 mg/dLCritically high0.55-1.02The [facility] CenterComment on above:Performed By: #### CMP ####[facility] Ixbqpewccv5213[address] [place], [place] [address]Dr.Yilan ChangEGFR-AF FLEGJNSF36 mL/min/1.84t8Xrfyvkmppp low>=60The [facility] CenterComment on above: Performed By: #### CMP ####[facility] Xaqbvrqdhq7395[address] [place], [place] [address]Dr.Yilan ChangEGFR-NON AF DCXDUKKL21 mL/min/1.73m2 Critically low>=60The [facility] CenterComment on above:Performed By: #### CMP ####[facility] Tediqguoir4225[address] [place], [place] [address]Dr. Yilan ChangGlobulin (S) [Mass/Vol]3.5 g/dLNormalThe [facility] CenterComment on above:Performed By: #### CMP ####[facility] Lughbenqpi5215[address] [place], [place] [address]Dr.Yilan ChangGlucose [Mass/Vol]265 mg/dLCritically gank21-223Xay [facility] CenterComment on above:Performed By: #### CMP ####[facility] [address] [place] [address]Dr. Yilan ChangPotassium [Moles/Vol]3.8 mmol/LNormal3.5-5.1The [facility] Comment on above:Performed By: #### CMP ####[facility] Qhbjgeapqf4526[address] [place], [place] [address]Dr.Yilan ChangProtein [Mass/Vol]6.9 g/dL Normal6.4-8.2The [facility] CenterComment on above:Performed By: #### CMP ####[facility] Wueaiygxyg8596[address] [place], [place] [address]Dr. Yilan ChangSodium [Moles/Vol]139 mmol/XXgjrqe637-404Jim [facility] CenterComment on above:Performed By: #### CMP ####[facility] Befdfdagre2758[address] [place], [place] [address]Dr.Yilan ChangUrea nitrogen [Mass/Vol]23.0 mg/dL Critically high7.0-18.0The [facility] CenterComment on above:Performed By: #### CMP ####[facility] Udzfoueygq8499[address] [place], [place] [address]Dr. Yilan ChangUrea nitrogen/Creatinine [Mass ratio]17.0 mg/mgNormalThe [facility] CenterComment on above:Performed By: #### CMP ####[facility] Xgcswkowxe581[address] [place], [place] [address]Dr.Devin ChangCBC AUTO DIFFon 18-89-6907KLJQ #0.1 103/ulNormal0.0-0.1The [facility] CenterComment on above: Performed By: #### CBC ####[facility] Gjadmmqvmx2266[address] [place], [place] [address]Dr.Yilan ChangBasophils/100 WBC (Bld)0.7 %Normal 0.2-2.0The [facility] CenterComment on above:Performed By: #### CBC ####[facility] Uynkszaepn0020[address] [place], [place] [address]Dr.Yilan ChangEO # 0.2 103/ulNormal0.0-0.7The [facility] CenterComment on above:Performed By: #### CBC ####[facility] Cycgeagydp1955[address] [place], [place] [address]Dr. Yilan ChangEosinophils/100 WBC (Bld)2.2 %Normal0.9-7.0The [facility] Comment on above:Performed By: #### CBC ####[facility] Pixwxvnwsk8308[address] [place], [place] [address]Dr.Yilan ChangErythrocyte distribution width (RBC) [Ratio]12.5 %Metqtp76.0-15.0The [facility] CenterComment on above: Performed By: #### CBC ####[facility] Zembqrqynw7908[address] [place], [place] [address]Dr.Yilan ChangHematocrit (Bld) [Volume fraction]40.2 % Ryaboi71.0-48.0The [facility] CenterComment on above:Performed By: #### CBC ####[facility] Pmjuqdpvro9010[address] [place], [place] [address]Dr. Tishemily ChangHemoglobin (Bld) [Mass/Vol]13.8 g/vAUapool69.0-16.0The [facility] CenterComment on above:Performed By: #### CBC ####[facility] Izjxsxkwmu1730[address] [place], [place] [address]Dr.Yilan ChangIG #0.03 10e3/ulNormal0.00-0.03The [facility] CenterComment on above:Performed By: #### CBC ####[facility] Qmxvrmklpf8657[address] [place], [place] [address]Dr. Yilan ChangIG %0.3 %Normal0.0-0.5The [facility] CenterComment on above:Performed By: #### CBC ####[facility] Bgefahvirg818[address] [place], [place] [address]Dr.Yilan ChangLYMPH #2.7 103/ulNormal1.2-3.8The [facility] Comment on above:Performed By: #### CBC ####[facility] Xmbdmyoyhp302[address] [place], [place] [address]Dr.Yilan ChangLymphocytes/100 WBC (Bld)26.4 %Fntkcm50.5-60.0The [facility] CenterComment on above:Performed By: #### CBC ####[facility] Ymkjahxryz7824[address] [place], [place] [address]Dr. Devin SureshMANUAL DIFF REQNONormalThe [facility] CenterComment on above: Performed By: #### CBC ####[facility] Ikqxjlfmya487[address] [place], [place] [address]Dr.Devin SureshHU[facility]ON VAL[facility] (RBC) [Entitic mass]30.0 pgNormal 26.7-34.0The [facility]inckley HospitalComment on above:Performed By: #### CBC ####[facility] Gldbtqfcrl632[address] [place], [place] [address]Dr. Devin SureshHARLE[facility] (RBC) [Mass/Vol]34.3 g/bUMzvdui82.9-35.2The [facility] Comment on above:Performed By: #### CBC ####[facility] Rscynlagrm2726[address] [place], [place] [address]Dr.Devin SureshV (RBC) [Entitic vol]87.4 fL Tzovnc68.0-99.0The [facility] CenterComment on above:Performed By: #### CBC ####[facility] Qptyijyxcm9726[address] [place], [place] [address]DrMaris Calloway #0.6 103/ulNormal0.3-0.8The [facility] CenterComment on above: Performed By: #### CBC ####[facility] Txgnfmvgqe9867[address] [place], [place] [address]DrGonzalo SureshMonocytes/100 WBC (Bld)5.8 %Normal 1.7-12.0The [facility] CenterComment on above:Performed By: #### CBC ####[facility] Buidwwqfgm7489[address] [place], [place] [address]DrMaris Taylor #6.7 103/ulCritically high1.4-6.5The [facility]ckley HospitalComment on above:Performed By: #### CBC ####[facility] Kmwlntpgdn7855[address] [place], [place] [address]Dr.Yilan ChangNeutrophils/100 WBC (Bld)64.6 %Normal 43.0-75.0The [facility] CenterComment on above:Performed By: #### CBC ####[facility] [address]rl[address] [place] [address]Dr. Devin SureshPlatelet mean volume (Bld) [Entitic vol]8.7 fLCritically low9.5-13.5 The [facility] CenterComment on above:Performed By: #### CBC ####[facility] Gasogxgwfp4014[address] [place], [place] [address]Dr.Tishemily EkhllXTX952 103/xfGfkqpu688-585Uef [facility] CenterComment on above:Performed By: #### CBC ####[facility] Thvtviedsp0448[address] [place], [place] [address]Dr. Devin SureshRBC4.60 106/ulNormal4.20-5.40The [facility] CenterComment on above: Performed By: #### CBC ####[facility] Hazcdlaopx1960[address] [place], [place] [address]Dr.Devin SureshWBC10.3 103/ulNormal4.0-11.0The [facility] CenterComment on above:Performed By: #### CBC ####[facility] Uhoenuoert1319[address] [place], [place] [address]Dr.Devin SureshCT HEAD WO CON on 57-96-4719AI HEAD WO CONNormalPremier HealthLACTATE/LACTIC ACIDon 90-85-7675Ykbprbp [Moles/Vol]1.9 mmol/LNormal0.4-1.9The [facility] CenterComment on above:Performed By: #### LACT ####[facility] Vmtamcdfnb9337[address] [place], [place] [address]Dr. Devin SureshWARSAW OF CARE GLUCOSEon 06-11-2022 Glucose [Mass/Vol]245 mg/dLCritically uzal02-819Lzf [facility] CenterComment on above:Performed By: #### POCGLUC ####[facility] Xqolpnnduf030[address] [place], [place] [address]Dr. Devin SureshPROF 14(COMP METB)on 27-01-9757Jpwkver [Mass/Vol]3.7 g/dLNormal3.4-5.0The [facility] CenterComment on above:Performed By: #### CMP, HSTROPN ####[facility] [address]utgfj[address] [place] [address]Dr. Yilan ChangAlbumin/Globulin [Mass ratio]1.0 {ratio} NormalThe [facility] CenterComment on above:Performed By: #### CMP, HSTROPN ####[facility] Ahmxgmnhvp12[address] [place] [address]Dr. Yilan ChangALP [Catalytic activity/Vol]123 U/LCritically ezud69-831Lkn [facility] CenterComment on above:Performed By: #### CMP, HSTROPN ####[facility] Zxexermzjr45[address] [place] [address]Dr. Yilan ChangALT [Catalytic activity/Vol]15 U/DByhrnl74-30Sux [facility] CenterComment on above:Performed By: #### CMP, HSTROPN ####[facility] Gnqaqioery34[address] [place] [address]Dr. Yilan ChangAnion gap [Moles/Vol]12.7 mmol/LNormal The [facility] CenterComment on above:Performed By: #### CMP, HSTROPN ####[facility] Zkjftfzkwk34[address] [place] [address]Dr. Yilan ChangAST [Catalytic activity/Vol]11 U/LCritically dyy90-53Ghl [facility] CenterComment on above:Performed By: #### CMP, HSTROPN ####[facility] Szhijphtkv2[address] [place], [place] [address]Dr. Yilan ChangBilirubin [Mass/Vol]0.4 mg/dLNormal0.2-1.0The [facility] CenterComment on above:Performed By: #### CMP, HSTROPN ####[facility] Ehbbeouvdz6[address] [place], [place] [address]Dr. Yilan ChangCalcium [Mass/Vol]9.5 mg/dLNormal 8.5-10.1The [facility] CenterComment on above:Performed By: #### CMP, HSTROPN ####[facility] Tnscqnertn[address] [place] [address]Dr. Yilan ChangChloride [Moles/Vol]105 mmol/DLkhwvw92-220Tky [facility] Comment on above:Performed By: #### CMP, HSTROPN ####[facility] Ryiiftlmkv01[address] [place], [place] [address]Dr. Yilan ChangCO2 [Moles/Vol] 27.5 mmol/NTnoftz39.0-32.0The [facility] CenterComment on above:Performed By: #### CMP, HSTROPN ####[facility] Rszzrwgsec6369[address] [place], [place] [address]Dr. Yilan ChangCreatinine [Mass/Vol]0.83 mg/dLNormal0.55-1.02The [facility] CenterComment on above:Performed By: #### CMP, HSTROPN ####[facility] Wwzhvxlpfs5676[address] [place], [place] [address]Dr. Yilan ChangEGFR- AF CONGOLESE>60Normal>=60The [facility] CenterComment on above:Performed By: #### CMP, HSTROPN ####[facility] Srfebpiwvw073[address] [place], [place] [address]Dr. Yilan ChangEGFR-NON AF CONGOLESE>60Normal>=60The [facility] Comment on above:Performed By: #### CMP, HSTROPN ####[facility] Pdimgdvlsx35[address] [place], [place] [address]Dr. Yilan ChangGlobulin (S) [Mass/Vol]3.7 g/dLNormalThe [facility] CenterComment on above:Performed By: #### CMP, HSTROPN ####[facility] Yesbbmihdj9[address] [place] [address]Dr. Yilan ChangGlucose [Mass/Vol]66 mg/dLCritically qoq60-253Xdw [facility] CenterComment on above:Performed By: #### CMP, HSTROPN ####[facility] Kvkiokoieu[address] [place], [place]Dr. Yilan Suresh Potassium [Moles/Vol]3.2 mmol/LCritically low3.5-5.1The [facility] CenterComment on above:Performed By: #### CMP, HSTROPN ####[facility] Vyqwgremet[address] [place] [address]Dr. Yilan ChangProtein [Mass/Vol]7.4 g/dL Normal6.4-8.2The [facility] CenterComment on above:Performed By: #### CMP, HSTROPN ####[facility] Atjbkyupxz[address] [place] [address]Dr. Yilan ChangSodium [Moles/Vol]142 mmol/RVnlkdx894-226Dau [facility] CenterComment on above:Performed By: #### CMP, HSTROPN ####[facility] Hjchqrbtca5[address] Yilan ChangUrea nitrogen [Mass/Vol]15.0 mg/dLNormal7.0-18.0The [facility] CenterComment on above: Performed By: #### CMP, HSTROPN ####[facility] Tjkoxanyxc[address] [place], [place] [address]r. Yilan ChangUrea nitrogen/Creatinine [Mass ratio] 18.1 mg/mgNormalThe [facility] CenterComment on above:Performed By: #### CMP, HSTROPN ####[facility] Xjlwgixvgh74[address] [place], [place] [address]Dr. Yilan ChangTROPONIN, HIGH SENSITIVITYon 32-16-8799SHNHTF1.5 pg/mLNormal 4.0-51.3The [facility] CenterComascension standish hospital on above:Result Comment: CUT-OFF POINTS HAVE BEEN ESTABLISHED BASED ON THE FOURTH UNIVERSAL DEFINITIONS OF MY OCARDIALINFARCTION. THE UPPER REFERENCE LIMIT (URL) OF TROPONIN, DEFINED THE 99TH PERCENTILE OFcTnI DISTRIBUTION IN A REFERENCE POPULATION, HAS BEEN CONFIRMED THE DECISION THRESHOLDFOR SD DIAGNOSIS.Performed By: #### HSTROPN ####[facility] [id number] [place], [place] [address]Ck. Devin SureshHSTROP5.1 pg/mLNormal4.0-51.3The [facility] CenterComment on above: Result Comment: CUT-OFF POINTS HAVE BEEN ESTABLISHED BASED ON THE FOURTH UNIVERSAL DEFINITIONS OF MYOCARDIALINFARCTION. THE UPPER REFERENCE LIMIT (URL) OF TROPONIN, DEFINED THE 99TH PERCENTILE OFcTnI DISTRIBUTION IN A REFERENCE POPULATION, HAS BEEN CONFIRMED THE DECISION THRESHOLDFOR SD DIAGNOSIS. Performed By: #### CMP, HSTROPN ####[facility] [address] [place], [place]Dr. Devin SureshXR CHEST 1 Von 91-04-4097SL CHEST 1 V NormalThe [facility] CenterCHEMISTRYOrdered By: Lab ROPUser on 94-15-6709Cgkywob [Mass/Vol]269 mg/jYGulf50 - 99 mg/dLFTMC POC SubsectionComment on above:Result Comment: Notified RN/MDPOC Device [id number] Interpretation CodeFTMC POC SubsectionPOC User [id number] Interpretation CodeFTMC POC Subsection POC UsernameMURRAY, EMILYInvalid Interpretation CodeFTMC POC SubsectionGlucose [Mass/Vol]378 mg/sMVstc22 - 99 mg/dLFTMC POC SubsectionComment on above:Result Comment: Cleaned MeterPOC Device [id number] Interpretation CodeFTMC POC SubsectionPOC User [id number] Interpretation CodeFTMC POC Subsection POC UsernameMETRO, RACHELLEInvalid Interpretation CodeFTMC POC SubsectionGlucose [Mass/Vol]492 mg/dLInvalid Interpretation Code55 - 99 mg/dLFTMC POC Subsection POC Device [id number] Interpretation CodeFTMC POC SubsectionPOC User [id number] Interpretation CodeFTMC POC SubsectionPOC UsernameUHEIDY LOPEZInvalid Interpretation CodeFTMC POC SubsectionCHEMISTRYOrdered By: SYSTEM SYSTEM on 92-57-5248Oyvaxdp [Mass/Vol]3.8 g/dLNormal3.3 - 5.0 gm/dLFTMC Remisol Albumin/Globulin [Mass ratio]1.1 {ratio}Normal1.1 - 2.2FT[facility] RemisolALP [Catalytic activity/Vol]104 [iU]/dHigh21 - 98 Int._Unit/LFTMC RemisolALT No additional P-5'-P [Catalytic activity/Vol]13 [iU]/dNormal6 - 46 Int._Unit/LFTMC RemisolAnion gap [Moles/Vol]15 mmol/LNormal6 - 16 mEq/LFTMC RemisolAST [Catalytic activity/Vol]11 [iU]/dNormal5 - 43 Int._Unit/LFTMC RemisolBeta hydroxybutyrate [Moles/Vol]0.55 mmol/LHigh0.02 - 0.27 mmol/LFTMC Remisol Bilirubin [Mass/Vol]1.0 mg/dLNormal0.0 - 1.1 mg/dLFTMC RemisolBilirubin.direct [Mass/Vol]0.2 mg/dLNormal0.1 - 0.4 mg/dLFTMC RemisolBilirubin.indirect [Mass or moles/Vol]0.8 mg/dLNormal0.1 - 0.9 mg/dLFTMC RemisolCalcium [Mass/Vol]9.0 mg/dL Normal8.9 - 11.1 mg/dLFTMC RemisolChloride [Moles/Vol]94 mmol/TCze696 - 111 mmol/LFTMC RemisolCO2 [Moles/Vol]24 mmol/NMetxdp53 - 31 mmol/LFTMC Remisol Creatinine [Mass/Vol]0.8 mg/dLNormal0.5 - 1.3 mg/dLFTMC RemisolGFR/1.73 sq M.predicted among blacks MDRD (S/P/Bld) [Vol rate/Area]mL/min/1.73 k6Alegst >=59mL/min/1.73 m2FTMC Chem SGFR/1.73 sq M.predicted among non-blacks MDRD (S/P/Bld) [Vol rate/Area]mL/min/1.73 t2Jwjlpd>=59mL/min/1.73 m2FT[facility] Chem S Globulin (S) [Mass/Vol]3.5 g/dLNormal1.4 - 4.0 gm/dLFTMC RemisolGlucose [Mass/Vol]484 mg/dLInvalid Interpretation Code55 - 199 mg/dLFTMC RemisolComment on above:Result Comment: Critical Result verified by repeat analysis\Critical Result S_[id number] Called to ELVIS DUNN AT by GLYNN BRYANT And Read Back For Confirmation at: 06/02/2022 17:16:15Lipase [Catalytic activity/Vol]27 U/L Rrzkyn70 - 58 unit/LFTMC RemisolPotassium [Moles/Vol]4.0 mmol/LNormal3.5 - 5.3 mmol/LFTMC RemisolProtein [Mass/Vol]7.3 g/dLNormal6.0 - 7.8 gm/dLFTMC Remisol Sodium [Moles/Vol]129 mmol/DMen577 - 145 mmol/LFTMC RemisolUrea nitrogen [Mass/Vol]16 mg/dLNormal5 - 21 mg/dLFTMC RemisolUrea nitrogen/Creatinine [Mass ratio]20 mg/jaLbpuoc19 - 20FT[facility] RemisolCOAGULATIONOrdered By: Breanna Hammond on 73-49-4875cNUR Coag (PPP) [Time]62.6 sHigh25.1 - 36.5 second(s)[facility] Auto CoagINR Coag (PPP) [Relative time]1.0 {INR}Invalid Interpretation CodeFTMC Auto CoagPT Coag (PPP) [Time]11.5 sNormal9.4 - 12.5 second(s)[facility] Auto CoagHEMATOLOGYOrdered By: SYSTEM SYSTEM on 14-81-6565Wjxwuaowc/100 WBC (Bld)0.7 %Normal0.0 - 2.0 % [facility] HemeAutoSSBasophils/Leukocytes Auto (Bld) [Pure # fraction]0.1 E9/LNormal 0.0 - 0.2 E9/LFTMC HemeAutoSSEosinophils/100 WBC (Bld)1.6 %Normal0.0 - 8.0 %[facility] HemeAutoSSEosinophils/Leukocytes Auto (Bld) [Pure # fraction]0.1 E9/LNormal0.0 - 0.5 E9/LFTMC HemeAutoSSLymphocytes/100 WBC (Bld)19.7 %Byxlfi41.0 - 50.0 %[facility] HemeAutoSSLymphocytes/Leukocytes Auto (Bld) [Pure # fraction]1.6 E9/LNormal1.0 - 4.0 E9/LFTMC HemeAutoSSMonocytes/100 WBC (Bld)5.7 %Normal4.0 - 14.0 %[facility] HemeAutoSSMonocytes/Leukocytes Auto (Bld) [Pure # fraction]0.5 E9/LNormal0.2 - 1.0 E9/LFTMC HemeAutoSSNeutrophils/100 WBC (Bld)72.3 %Kzidez99.0 - 75.0 %[facility] HemeAutoSSNeutrophils/Leukocytes Auto (Bld) [Pure # fraction]5.8 E9/LNormal2.0 - 7.5 E9/LFTMC HemeAutoSSHEMATOLOGYOrdered By: Karen Murphy on 06-02-2022 Erythrocyte distribution width (RBC) [Ratio]13.4 %Axlbmt95.9 - 14.2 %[facility] HemeAutoSSHematocrit (Bld) [Volume fraction]37.8 %Znzimj11.0 - 46.0 %[facility] HemeAutoSSHemoglobin (Bld) [Mass/Vol]12.8 g/oWZrgeyl95.0 - 16.0 gm/dLFTMC HemeAutoSSMCH (RBC) [Entitic mass]30.3 iwMvdcpi94.0 - 34.0 pgFTMC HemeAutoSSMCHC (RBC) [Mass/Vol]33.9 g/jNYlneys00.4 - 36.0 gm/dLFTMC HemeAutoSSMCV (RBC) [Entitic vol]89.2 rXFklfct06.0 - 100.0 fLFTMC HemeAutoSSPlatelet mean volume (Bld) [Entitic vol]7.3 fLNormal6.4 - 10.8 fLFTMC HemeAutoSSPlatelets (Bld) [#/Vol]281.0 E9/ZWgcdyo674.0 - 500.0 E9/LFTMC HemeAutoSSRBC (Bld) [#/Vol]4.2 E12/LLow4.3 - 5.9 E12/LFTMC HemeAutoSSWBC corrected for nucl RBC Auto (Bld) [#/Vol]8.0 E9/LNormal4.0 - 11.0 E9/LFTMC HemeAutoSSURINALYSISOrdered By: Gigi Morrison on 05-59-0529Rbtabuti LM Ql (Urine sed)Trace /HPFNormalTrace/HPFFTMC UA Auto SSBilirubin Ql (U)Negative (06/02/22 6:10 PM)NormalNegativeFTMC UA Auto SSClarity (U)Slightly Cloudy *ABN* (06/02/22 6:10 PM)Invalid Interpretation CodeClearFTMC UA Auto SSColor (U)Straw *ABN* (06/02/22 6:10 PM)Invalid Interpretation CodeYellowFTMC UA Auto SSEpithelial cells.squamous LM.HPF (Urine sed) [#/Area]0-2 /HPFNormal0-2/HPFFTMC UA Auto SS Glucose Test strip (U) [Mass/Vol]3+ *ABN* (06/02/22 6:10 PM)Invalid Interpretation CodeNegativeFTMC UA Auto SSHemoglobin Ql (U)Trace *ABN* (06/02/22 6:10 PM)Invalid Interpretation CodeNegativeFTMC UA Auto SSKetones (U) [Mass/Vol]Trace *ABN* (06/02/22 6:10 PM)Invalid Interpretation CodeNegativeFTMC UA Auto SS [place].plasma/[place].RBC (Bld) [Mass ratio]0-3 /HPFNormal0-3/HPFFTMC UA Auto SSNitrite Ql (U)Negative (06/02/22 6:10 PM)NormalNegativeFT UA Auto SSpH (U)5.5 *NA* (06/02/22 6:10 PM)Invalid Interpretation Code5.0 - 9.0FTMC UA Auto SSProtein (U) [Mass/Vol]Negative (06/02/22 6:10 PM)NormalNegativeFTMC UA Auto SSSpecific gravity (U) [Rel density] 1.010 *NA* (06/02/22 6:10 PM)Invalid Interpretation Code1.005 - 1.030FTMC UA Auto SSUA Spec DescClean Catch (06/02/22 6:10 PM)NormalFTMC UA Auto SSUrobilinogen Qn (U)0.2960630 {Sheyla'U}/dL Normal0.0 - 1.0 EU/dLPOST [facility] [place] [place] Auto SSWBC Auto Ql (U)Negative (06/02/22 6:10 PM)NormalNegativePOST [facility] [place] Auto SSWBC LM.HPF (Urine sed) [#/Area]0-5 /HPFNormal0-5/HPFPOST [facility] [place] Auto SSYeast LM Ql (Urine sed)Trace (06/02/22 6:10 PM)NormalPOST [facility] [place] Auto SSCULTURE URINEon 06-63-0098WKZGFNV URINE NormalThe [facility] CenterComment on above:Performed By: #### URCX ####[facility] Qtrngfsbsq[address] [place], [place] [address]Dr. Devin Suresh POINT OF CARE GLUCOSEon 18-95-8749Vfcyxcm [Mass/Vol]359 mg/dLCritically high 74-106The [facility] CenterComment on above:Performed By: #### POCGLUC ####[facility] Rrgvuvlqcv[address] [place], [place] [address]Dr. Tishemily KerwinAMYLASEon 42-41-9321Egmuoxo [Catalytic activity/Vol]15 U/LCritically hyn62-478Uqm [facility] CenterComment on above:Performed By: #### RADHA DELGADO, CMP ####[facility] Sxxvqfilrc23[address] [place], [place] [address]Dr. Devin SureshCBC AUTO DIFFon 79-94-1596UMGC #0.0 103/ulNormal0.0-0.1The [facility] CenterComment on above:Performed By: #### CBC ####[facility] Wwwunqpiim[address] [place], [place] [address]Dr.Tishemily KerwinBasophils/100 WBC (Bld)0.2 %Normal0.2-2.0The [facility] CenterComment on above:Performed By: #### CBC ####[facility] Symekkarwc[address] [place], [place] [address]Dr.Devin ChangEO #0.1 103/ulNormal0.0-0.7The [facility] CenterComment on above:Performed By: #### CBC ####[facility] [address] [place] [address]Dr.Tishlan ChangEosinophils/100 WBC (Bld)0.7 %Critically low0.9-7.0The [facility] CenterComment on above:Performed By: #### CBC ####[facility] Dbdfqmljez25[address] [place], [place] [address]Dr. Yilan ChangErythrocyte distribution width (RBC) [Ratio]12.7 %Fdtewb86.0-15.0The [facility] CenterComment on above:Performed By: #### CBC ####[facility] Oahqsjccrw[address] [place], [place] [address]Dr.Yilan ChangHematocrit (Bld) [Volume fraction]34.7 %Critically low36.0-48.0The [facility] CenterComment on above:Performed By: #### CBC ####[facility] Ioyadbxjjj0[address] [place], [place] [address]Dr.Tishlan ChangHemoglobin (Bld) [Mass/Vol]12.1 g/dL Olbagc19.0-16.0The [facility] CenterComment on above:Performed By: #### CBC ####[facility] Edcvhfktwk[address] [place], [place] [address]Dr. Yilan ChangIG #0.05 10e3/ulCritically high0.00-0.03The [facility] CenterComment on above:Performed By: #### CBC ####[facility] Aguargxsba[address] [place], [place] [address]Dr.Yilan ChangIG %0.4 %Normal0.0-0.5The [facility] CenterComascension standish [facility] on above:Performed By: #### CBC ####[facility] Bpcgwjuaua[address] [place], [place] [address]Dr.Yilan ChangLYMPH #0.3 103/ulCritically low1.2-3.8The [facility] CenterComment on above:Performed By: #### CBC ####[facility] Mbnschkhfb[address] [place], [place] [address]Dr.Yilan ChangLymphocytes/100 WBC (Bld)2.6 %Critically low20.5-60.0The [facility] CenterComment on above:Performed By: #### CBC ####[facility] [address] [place] [address]Dr.Devin SureshMANUAL DIFF REQ NONormalThe [facility] CenterComment on above:Performed By: #### CBC ####[facility] Jewdxryhqm[address] [place], [place] [address]Dr. Devin SureshH (RBC) [Entitic mass]30.6 zhPnzxtk07.7-34.0The [facility] Comment on above:Performed By: #### CBC ####[facility] Ylngodmxzc[address] [place], [place] [address]Dr.Tishemily SureshHC (RBC) [Mass/Vol]34.9 g/dL Yntwts50.9-35.2The [facility] CenterComment on above:Performed By: #### CBC ####[facility] Pxwxwxcijl[address] [place], [place] [address]Dr. Devin SureshV (RBC) [Entitic vol]87.6 rFVdnzva73.0-99.0The [facility] Comment on above:Performed By: #### CBC ####[facility] Efiyihvezz[address] [place], [place] [address]Dr.Devin SureshMONO #0.3 103/ulNormal0.3-0.8 Premier HealthComment on above:Performed By: #### CBC ####[facility] Yyyqhlugut[address] [place], [place] [address]Dr.Devin Suresh Monocytes/100 WBC (Bld)2.5 %Normal1.7-12.0The [facility] CenterComment on above: Performed By: #### CBC ####[facility] Hdsvdqcdpn[address] [place], [place] [address]DrGonzalo SureshNEUT #11.9 103/ulCritically high1.4-6.5 The [facility] CenterComment on above:Performed By: #### CBC ####[facility] Tvjujzfhti[address] [place], [place] [address]Dr.Devin Suresh Neutrophils/100 WBC (Bld)93.6 %Critically high43.0-75.0The [facility] Comment on above:Performed By: #### CBC ####[facility] [address] [place] [address]Dr.Devin SureshPlatelet mean volume (Bld) [Entitic vol]9.2 fLCritically low9.5-13.5The [facility] CenterComment on above: Performed By: #### CBC ####[facility] [address] [place] [address]Dr.Devin KvdeyRSE641 103/gxLnmnql356-866Hif [facility] CenterComment on above:Performed By: #### CBC ####[facility] [address]uczl[address] [place] [address]Dr.Devin SureshRBC3.96 106/ul Critically low4.20-5.40The [facility] CenterComment on above:Performed By: #### CBC ####[facility] Pchqbiowip[address] [place], [place] [address]Dr. Devin SureshWBC12.8 103/ulCritically high4.0-11.0The [facility] CenterComment on above:Performed By: #### CBC ####[facility] Euowtayqhw[address] [place], [place] [address]Dr.Devin SureshCovid-19 PCR ([facility])on 04-20-2022 SARS-CoV-2 (COVID-19) RNA EBONIE+probe Ql (Unsp spec)Not detectedNormalNOT DETECTED The [facility] CenterComment on above:Result Comment: When diagnostic testing is negative, the possibility of a false negative should be considered inthe context of a patient's recent exposures and the presence of clinical signs and sympt omsconsistent with SARS-CoV-2.This test is not yet approved or cleared by the [place] FDA. When there are no FDA-approved or cleared tests available, and other criteria are met, FDA can make tests available under an emergency access mechanism called an Emergency Use Authorization (EUA). The EUA for this test is supported by the Electronic Scale Tester of Health and Human Service's declaration that circumstances exist to justify the emergency use of in vitro diagnostics for the detection and/or diagnosis of the virus that causes COVID-19. This EUA will remain in effect for the duration of the COVID-19declaration justifying emergency of IVDs, unless it is terminated or revoked by the FDA (after which the test may no longer be used).Performed By: #### CVDTBH ####[facility] [address] [place] [address]Dr. Yilan ChangER URINE PROFILEon 22-75-1822Gxzxpplls Ql (U)NegativeNormalNEGATIVEPremier Health Comment on above:Performed By: #### MERCEDEZ UMICRO ####[facility] [address] [place] [address]Dr. Yilan ChangClarity (U) CLEARNormalCLEARPremier HealthComment on above:Performed By: #### MERCEDEZ UMICRO ####[facility] Tdzsfmuthz[address] [place], [place] [address]Dr. Yilan ChangColor (U)LT. YELLOWNormalYELLOWPremier HealthComment on above:Performed By: #### MERCEDEZ UMICRO ####[facility] Xfqzyzlnwt[address] [place], [place] [address]Dr. Devin ChangEMARLYAHDA micrscopic examination will be performed if indicated.NormalThe [facility] CenterComment on above: Performed By: #### MERCEDEZ UMICRO ####[facility] Xqxjqjrhvp[address] [place], [place] [id number]. Yilan ChangGlucose Ql (U)>1000AbnormalNEGATIVEPremier HealthComment on above:Performed By: #### MERCEDEZ UMICRO ####[facility] X[address]uykqrkb[address] [place] [address]Dr. Yilan Suresh Hemoglobin Ql (U)TRACE-INTACTAbnormalNEGATIVEPremier HealthComment on above:Performed By: #### MERCEDEZ, UMICRO ####[facility] [address]la[address] [place] [address]Dr. Yilan ChangKetones Ql (U)TRACEAbnormalNEGATIVE The [facility] CenterComment on above:Performed By: #### MERCEDEZ UMICRO ####[facility] [address]wqnt[address] [place] [id number]. Devin ChangLEUKOCYTESNegativeNormalNEGATIVEThe [facility] CenterComment on above:Performed By: #### MERCEDEZ UMICRO ####[facility] Mikbsmmqde65[address] [place] [id number]. Devin SureshNitrite Ql (U)PositiveAbnormal NEGATIVEThe [facility]inckley HospitalComment on above:Performed By: #### MERCEDEZ UMICRO ####[facility] Otuzyczbls[address] [place] [id number]. Devin ChangpH (U)5.0 [pH]Normal5-9The [facility] CenterComment on above: Performed By: #### MERCEDEZ UMICRO ####[facility] [address]juptshkb[address] [place] [id number]. Devin SureshSPEC GRAVITY1.406Fmjucm4.005-<=1.025The [facility] CenterComment on above:Performed By: #### MERCEDEZ ICRO ####[facility] Ejseoniudc[address] [place] [address]Dr. Devin SureshUA PROTEINNegativeNormalNEGATIVE/ TRACEThe [facility]ckley HospitalComment on above: Performed By: #### MERCEDEZ UMICRO ####[facility] Lfzajxsldh[address] [place] [id number]. Devin SureshUR MICRO INDINDICATEDNormalThe [facility]ckley HospitalComment on above:Performed By: #### MERCEDEZ UMICRO ####[facility] Gtwdcmmavd[address] [place] [id number]. Devin SureshUrobilinogen Qn (U)0.2 {Sheyla'U}/dLNormal0.2 - 1.0The [facility] CenterComment on above: Performed By: #### MERCEDEZ UMICRO ####[facility] Etkwutmnfv[address] [place] [address]Dr. Devin SureshINFLUENZA A AND B AGon 04-20-2022 INFLUENZA A AGNegativeNormalNEGATIVE SEE COMMENTThe [facility] on above:Performed By: #### RSV, INFLUAB ####[facility] Cmpeaesotr[address] [place], [place] [id number]. Devin SureshINFLUENZA B AGNegativeNormal NEGATIVE SEE COMMENTThe [facility] on above:Performed By: #### RSV, INFLUAB ####[facility] Svftpmjupf[address] [place], [place] [address]Dr. Devin SureshINFLUPOSHSEE [facility] CenterCom[facility] on above:Result Comment: NOTE: Live attenuated influenzae vaccine viruses can cause a positive result for a rapid influenza diagnostic test if administered up to 7 days prior to rapid testing.Performed By: #### RSV, INFLUAB ####[facility] Sv[address]qv[address] [place], [place] [address]r. Devin Suresh INFLUPOSHBSEE [facility] on above:Result Comment: NOTE: Live attenuated influenzae vaccine viruses can cause a positive result for a rapid influenza diagnostic test if administered up to 7 days prior to rapid testing.Performed By: #### RSV, INFLUAB ####[facility] Qkmmzxhgfb[address] [place], [place] [address]r. Devin SureshINTERNAL CONTROLSWithin Normal LimitsNormalWithin Normal LimitsThe [facility] on above:Performed By: #### RSV, INFLUAB ####[facility] [address]sj[address]scwdr[address] [place], [place] [address]r. Devin SureshLACTATE/LACTIC ACIDon 97-72-2557Khbyvkz [Moles/Vol]1.9 mmol/LNormal0.4-1.9The [facility] Hospitalment on above: Performed By: #### LACT ####[facility] Zexrdjgmuq[address] [place], [place] [address]Dr. Devin SureshLIPASEon 69-94-3470Ftdxws [Catalytic activity/Vol]111.0 U/ZExhwud58.0-393.0The [facility] CenterComment on above: Performed By: #### LIPA, RADHA, CMP ####[facility] [address] [place] [address]Dr. Devin SureshPOINT OF CARE GLUCOSEon 04-20-2022 Glucose [Mass/Vol]573 mg/dLCritically lpnl12-808Yxp [facility] CenterComasc[facility] on above:Result Comment: Lab Draw OrderedPerformed By: #### POCGLUC ####[facility] [address]qxenbib[address] [place] [address]Dr. Devin SureshPROF 14(COMP METB)on 34-13-2924Mrhnblq [Mass/Vol]3.4 g/dLNormal3.4-5.0The [facility] CenterComment on above:Performed By: #### RADHA DELGADO, CMP ####[facility] Tdvibkqixs[address] [place] [address]Dr. Devin Suresh Albumin/Globulin [Mass ratio]0.9 {ratio}NormalThe [facility] CenterComascension stand[facility] hospital on above:Performed By: #### RADHA DELGADO, CMP ####[facility] [address]vaudwku[address] [place] [address]Dr. Devin SureshALP [Catalytic activity/Vol] 132 U/LCritically fqps97-069Kwh [facility] CenterComasc[facility] on above:Performed By: #### RADHA DELGADO, CMP ####[facility] Yeq[address]ff[address] [place] [address]Dr. Devin SureshALT [Catalytic activity/Vol]16 U/L Gfestz11-95Ols [facility] CenterComasc[facility] stand[facility] on above:Performed By: #### RADHA DELGADO, CMP ####[facility] [address]lassbhjl[address] [place] [address]Dr. Devin SureshAnion gap [Moles/Vol]12.3 mmol/LNormalThe [facility] CenterComment on above:Performed By: #### RADHA DELGADO, CMP ####[facility] [address]gbrhokwme[address] [place], [place] [address]Dr. Devin ChangAST [Catalytic activity/Vol]9 U/LCritically yjm36-80Xiy [facility] CenterComment on above:Performed By: #### RADHA DELGADO, CMP ####[facility] [address]mdh[address] [place] [address]Dr. Yilan ChangBilirubin [Mass/Vol]0.9 mg/dLNormal0.2-1.0The [facility] CenterComment on above:Performed By: #### RADHA DELGADO, CMP ####[facility] [address]zw[address] [place] [address]Dr. Yilan ChangCalcium [Mass/Vol]9.0 mg/dLNormal8.5-10.1The [facility] CenterComment on above:Performed By: #### RADHA DELGADO, CMP ####[facility] Sxefvluxmo[address] [place], [place] [address]Dr. Yilan ChangChloride [Moles/Vol]96 mmol/LCritically crj77-095Kdw [facility] CenterComment on above:Performed By: #### RADHA DELGADO, CMP ####[facility] Czdwuvxvgz[address] [place], [place] [address]Dr. Yilan ChangCO2 [Moles/Vol]26.0 mmol/PSlzksh87.0-32.0The [facility] Comment on above:Performed By: #### RADHA DELGADO, CMP ####[facility] [address]xhjipyqo[address] [place], [place] [address]Dr. Yilan ChangCreatinine [Mass/Vol]1.15 mg/dLCritically high0.55-1.02The [facility] CenterComment on above:Performed By: #### RADHA DELGADO, CMP ####[facility] Hioqwfnfqp[address] [place], [place] [address]Dr. Yilan ChangEGFR-AF CONGOLESE>60Normal>=60 The [facility] CenterComment on above:Performed By: #### RADHA DELGADO, CMP ####[facility] [address]paiywqfa[address] [place], [place] [address]Dr. Yilan ChangEGFR-NON AF NNBBQNAV64 mL/min/1.24h4Nosqfnoxiy low>=60The [facility] CenterComment on above:Performed By: #### RADHA DELGADO, CMP ####[facility] Aghfbcntev[address] [place], [place] [address]Dr. Yilan ChangGlobulin (S) [Mass/Vol]3.7 g/dLNoSelect Medical Specialty Hospital - Cincinnati NorthComment on above:Performed By: #### RADHA DELGADO, CMP ####[facility] [address] [place] [address]Dr. Yilan ChangGlucose [Mass/Vol]590 mg/dLCritically ognr25-749Pob [facility] CenterComment on above:Performed By: #### RADHA DELGADO, CMP ####[facility] [address]rc[address] [place] [address]Dr. Tishlan Suresh Potassium [Moles/Vol]4.3 mmol/LNormal3.5-5.1The [facility] CenterComment on above:Performed By: #### RADHA DELGADO, CMP ####[facility] [address]ewi[address] [place] [address]Dr. Yilan ChangProtein [Mass/Vol]7.1 g/dL Normal6.4-8.2The [facility] CenterComment on above:Performed By: #### RADHA DELGADO, CMP ####[facility] [address]ew[address]xib[address] [place] [address]Dr. Yilan ChangSodium [Moles/Vol]130 mmol/LCritically ycw282-670Rqf Mount [facility] Mary Hospitalment on above:Performed By: #### RADHA DELGADO, CMP ####[facility] [address] [place] [address]Dr. Yilan ChangUrea nitrogen [Mass/Vol]22.0 mg/dLCritically high7.0-18.0The [facility] Comment on above:Performed By: #### RADHA DELGADO, CMP ####[facility] [address] [place] [address]Dr. Yilan ChangUrea nitrogen/Creatinine [Mass ratio]19.1 mg/mgNoSelect Medical Specialty Hospital - [facility] NorthComment on above:Performed By: #### RADHA DELGADO, CMP ####[facility] [address] [place] [place] [address]Dr. Devin SureshRSVon 19-70-5007HYE AG NegativeNormalNEGATIVEThe [facility] on above:Performed By: #### RSV, INFLUAB ####[facility] [address] [place], [place] [address]Dr. Devin SureshURINE MICROSCOPIC ONLYon [id number] NONE SEENThe [facility] CenterComascension stand[facility] on above:Performed By: #### MERCEDEZ UMICRO ####[facility] [address] [place] [id number]. Devin SureshBacteria identified Cx Nom (U)INDICATEDGrand Lake Joint [facility] Comment on above:Performed By: #### MERCEDEZ UMICRO ####[facility] [address] Devin SureshCASTNONE SEEN NormalNONE SEENMercy Health Springfield [facility] on above:Performed By: #### MERCEDEZ UMICRO ####[facility] Yszxujjdey[address] [place], [place] [address]Dr. Devin SureshCrystals LM Nom (Urine sed)NONE SEENNormalNONE SEENMercy Health [facility] on above:Performed By: #### MERCEDEZ UMICRO ####[facility] Uemyznmsfw[address] [place], [place] [address]r. Devin Suresh Epithelial cells LM Ql (Urine sed)RARESoutheast Missouri Community Treatment CenterE SEEN /RAREPremier Health Comment on above:Performed By: #### MERCEDEZ UMICRO ####[facility] Xkqkksdrki[address] [place], [place] [address]r. Devin SureshMUCOUSNONE SEEN NormalNONE SEENPremier HealthComascension stand[facility] on above:Performed By: #### MERCEDEZ UMICRO ####[facility] Cwvlbbgnhq[address] [place], [place] [address]Dr. Devin SureshRBCNONE SEENAbnormal0-2The [facility] CenterComascension stand[facility] on above:Performed By: #### MERCEDEZ UMICRO ####[facility] Uanpoeavzv[address] [place], [place] [address]Dr. Devin SureshWBC2-5AbnormalNONE SEENThe Hinckley HospitalComment on above:Performed By: #### CHUCKY NEWSOME ####[facility] Ydzigfsvoa[address] [place], [place]Dr. Devin SureshXR CHEST 2 Von 62-58-0560KL CHEST 2 VNMercy Health Springfield Regional Medical CenterCHEMISTRYOrdered By: Lab Pop on 42-44-8583Qitlpec [Mass/Vol]105 mg/hZGfps63 - 99 mg/dLFTMC POC SubsectionComment on above:Result Comment: Notified RN/MDPOC Device SN [id number] Interpretation CodeFTMC POC SubsectionPOC User [id number] Invalid Interpretation CodeFTMC POC SubsectionPOC UsernameBiemler, Michi Invalid Interpretation CodeFTMC POC SubsectionGlucose [Mass/Vol]50 mg/dLLow55 - 99 mg/dLFTMC POC SubsectionComment on above:Result Comment: Notified RN/MDPOC Device [id number] Interpretation CodeFTMC POC SubsectionPOC User ID [id number] Interpretation CodeFTMC POC SubsectionPOC UsernameBiemler, MelissaInvalid Interpretation CodeFTMC POC SubsectionGlucose [Mass/Vol]53 mg/dL Low55 - 99 mg/dLFTMC POC SubsectionComment on above:Result Comment: Notified RN/MDPOC Device [id number] Interpretation CodeFTMC POC SubsectionPOC User [id number] Interpretation CodeFTMC POC SubsectionPOC Username Julietaler, MelissaInvalid Interpretation CodeFTMC POC SubsectionCHEMISTRYOrdered By: SYSTEM SYSTEM on 14-52-5998Ajpjn gap [Moles/Vol]4 mmol/LLow6 - 16 mEq/LFTMC RemisolCalcium [Mass/Vol]8.5 mg/dLLow8.9 - 11.1 mg/dLFTMC RemisolChloride [Moles/Vol]112 mmol/ZOutp255 - 111 mmol/LFTMC RemisolCO2 [Moles/Vol]25 mmol/L Khncxy85 - 31 mmol/LFTMC RemisolCreatinine [Mass/Vol]1.1 mg/dLNormal0.5 - 1.3 mg/dLFTMC RemisolGFR/1.73 sq M.predicted among blacks MDRD (S/P/Bld) [Vol rate/Area]mL/min/1.73 q5Snxuso>=59mL/min/1.73 m2FTMC Chem SGFR/1.73 sq M.predicted among non-blacks MDRD (S/P/Bld) [Vol rate/Area]54 mL/min/1.73 m2Low >=59mL/min/1.73 m2FTMC Chem SGlucose [Mass/Vol]122 mg/rCPizqyh45 - 199 mg/dLFTMC RemisolMagnesium [Mass/Vol]2.6 mg/dLHigh1.3 - 2.4 mg/dLFTMC RemisolPotassium [Moles/Vol]3.7 mmol/LNormal3.5 - 5.3 mmol/LFTMC RemisolSodium [Moles/Vol]137 mmol/BWpytfq935 - 145 mmol/LFTMC RemisolUrea nitrogen [Mass/Vol]27 mg/dLHigh5 - 21 mg/dLFTMC RemisolUrea nitrogen/Creatinine [Mass ratio]24 mg/suUgkw44 - 20FTMC RemisolCHEMISTRYOrdered By: SYSTEM SYSTEM on 85-25-6535Srlmb gap [Moles/Vol]11 mmol/LNormal6 - 16 mEq/LFTMC RemisolCalcium [Mass/Vol]8.8 mg/dLLow8.9 - 11.1 mg/dLFTMC RemisolChloride [Moles/Vol]102 mmol/CVchrti035 - 111 mmol/LFTMC RemisolCO2 [Moles/Vol]22 mmol/SRwhrzt14 - 31 mmol/LFTMC RemisolCreatinine [Mass/Vol]1.0 mg/dLNormal0.5 - 1.3 mg/dLFTMC RemisolGFR/1.73 sq M.predicted among blacks MDRD (S/P/Bld) [Vol rate/Area]mL/min/1.73 o4Cobadq>=59mL/min/1.73 m2FT[facility] Chem SGFR/1.73 sq M.predicted among non-blacks MDRD (S/P/Bld) [Vol rate/Area]60 mL/min/1.73 r1Ltsoaj>=59mL/min/1.73 m2[facility] Chem SGlucose [Mass/Vol] 372 mg/mHYshq77 - 199 mg/dLFT RemisolPotassium [Moles/Vol]4.4 mmol/LNormal3.5 - 5.3 mmol/LFTMC RemisolSodium [Moles/Vol]131 mmol/GRct816 - 145 mmol/LFTMC RemisolUrea nitrogen [Mass/Vol]19 mg/dLNormal5 - 21 mg/dLFTMC RemisolUrea nitrogen/Creatinine [Mass ratio]19 mg/ioYxfgfw84 - 20FT Vpnoidi14- hydroxyvitamin D3 [Mass/Vol]8.1 ng/mLLow30.0 - 100.0 ng/mLFT RemisolAlbumin [Mass/Vol]3.4 g/dLNormal3.3 - 5.0 gm/dLFT RemisolAlbumin/Globulin [Mass ratio] 1.1 {ratio}Normal1.1 - 2.2FTMC RemisolALP [Catalytic activity/Vol]93 [iU]/d Qaopih23 - 98 Int._Unit/LFTMC RemisolALT No additional P-5'-P [Catalytic activity/Vol]14 [iU]/dNormal6 - 46 Int._Unit/LFTMC RemisolAnion gap [Moles/Vol] 18 mmol/LHigh6 - 16 mEq/LFTMC RemisolAST [Catalytic activity/Vol]12 [iU]/dNormal 5 - 43 Int._Unit/LFTMC RemisolBilirubin [Mass/Vol]0.8 mg/dLNormal0.0 - 1.1 mg/dL [facility] RemisolBilirubin.direct [Mass/Vol]0.2 mg/dLNormal0.1 - 0.4 mg/dLFTMC RemisolBilirubin.indirect [Mass or moles/Vol]0.6 mg/dLNormal0.1 - 0.9 mg/dLFTMC RemisolCalcium [Mass/Vol]8.7 mg/dLLow8.9 - 11.1 mg/dLFT RemisolChloride [Moles/Vol]100 mmol/LJxc610 - 111 mmol/LFTMC RemisolCO2 [Moles/Vol]19 mmol/LLow 21 - 31 mmol/LFTMC RemisolCreatinine [Mass/Vol]0.9 mg/dLNormal0.5 - 1.3 mg/dL FT RemisolGFR/1.73 sq M.predicted among blacks MDRD (S/P/Bld) [Vol rate/Area] mL/min/1.73 j2Pctzyx>=59mL/min/1.73 m2FT Chem SGFR/1.73 sq M.predicted among non-blacks MDRD (S/P/Bld) [Vol rate/Area]mL/min/1.73 n3Aplwes>=59mL/min/1.73 m2 [facility] Chem SGlobulin (S) [Mass/Vol]3.2 g/dLNormal1.4 - 4.0 gm/dLFT Remisol Glucose [Mass/Vol]419 mg/wUGyso98 - 199 mg/dLFT RemisolLipase [Catalytic activity/Vol]22 U/BJvlsyt18 - 58 unit/LFTMC RemisolMagnesium [Mass/Vol]1.5 mg/dL Normal1.3 - 2.4 mg/dLFT RemisolPhosphate [Mass/Vol]3.7 mg/dLNormal1.9 - 4.6 mg/dLFTMC RemisolPotassium [Moles/Vol]4.2 mmol/LNormal3.5 - 5.3 mmol/LFTMC RemisolProtein [Mass/Vol]6.6 g/dLNormal6.0 - 7.8 gm/dLFT RemisolSodium [Moles/Vol]133 mmol/NGqv572 - 145 mmol/LFTMC RemisolUrea nitrogen [Mass/Vol]19 mg/dLNormal5 - 21 mg/dLFTMC RemisolUrea nitrogen/Creatinine [Mass ratio]21 mg/mg High10 - 20FT RemisolBeta hydroxybutyrate [Moles/Vol]0.51 mmol/LHigh0.02 - 0.27 mmol/LFTMC RemisolCHEMISTRYOrdered By: Sharla Montes on 75-65-7786GeM9l (Bld) [Mass fraction]9.7 %High<=5.9%[facility] ChemAutoSSCHEMISTRYOrdered By: Mary Lou Salas on 24-39-3770Jubtoosjltc peptide B (Bld) [Mass/Vol]11 pg/mLNormal5 - 80 pg/mLFTMC HemeManSSCHEMISTRYOrdered By: SYSTEM SYSTEM on 10-94-2362Jwvakznw I.cardiac [Mass/Vol]4.50 pg/mLLow10.10 - 27.10 pg/mLFTMC RemisolHEMATOLOGY Ordered By: SYSTEM SYSTEM on 68-85-7088Mduvdekwc/100 WBC (Bld)1.6 %Normal0.0 - 2.0 %[facility] HemeAutoSSBasophils/Leukocytes Auto (Bld) [Pure # fraction]0.1 E9/L Normal0.0 - 0.2 E9/LFTMC HemeAutoSSEosinophils/100 WBC (Bld)2.2 %Normal0.0 - 8.0 %[facility] HemeAutoSSEosinophils/Leukocytes Auto (Bld) [Pure # fraction]0.1 E9/L Normal0.0 - 0.5 E9/LFTMC HemeAutoSSLymphocytes/100 WBC (Bld)23.2 %Nvrlrj65.0 - 50.0 %[facility] HemeAutoSSLymphocytes/Leukocytes Auto (Bld) [Pure # fraction]1.3 E9/L Normal1.0 - 4.0 E9/LFTMC HemeAutoSSMonocytes/100 WBC (Bld)6.0 %Normal4.0 - 14.0 %[facility] HemeAutoSSMonocytes/Leukocytes Auto (Bld) [Pure # fraction]0.3 E9/LNormal 0.2 - 1.0 E9/LFTMC HemeAutoSSNeutrophils/100 WBC (Bld)67.0 %Qevxll92.0 - 75.0 % [facility] HemeAutoSSNeutrophils/Leukocytes Auto (Bld) [Pure # fraction]3.8 E9/LNormal 2.0 - 7.5 E9/LFTMC HemeAutoSSHEMATOLOGYOrdered By: Mary Lou Salas on 04-06-2022 Erythrocyte distribution width (RBC) [Ratio]13.6 %Enwnsp52.9 - 14.2 %[facility] HemeAutoSSHematocrit (Bld) [Volume fraction]38.9 %Yipfqv76.0 - 46.0 %[facility] HemeAutoSSHemoglobin (Bld) [Mass/Vol]13.3 g/kWEylnca27.0 - 16.0 gm/dLFT HemeAutoSSMCH (RBC) [Entitic mass]30.2 luApijef40.0 - 34.0 pgFTMC HemeAutoSSMCHC (RBC) [Mass/Vol]34.2 g/kEYiykou03.4 - 36.0 gm/dLFT HemeAutoSSMCV (RBC) [Entitic vol]88.1 oZVmjuxd23.0 - 100.0 fLPOST [facility] HemeAutoSSPlatelet mean volume (Bld) [Entitic vol]7.3 fLNormal6.4 - 10.8 fLPOST [facility] HemeAutoSSPlatelets (Bld) [#/Vol]279.0 E9/DZwiazf818.0 - 500.0 E9/LFWE[facility]ERF[facility] HemeAutoSSRBC (Bld) [#/Vol]4.4 E12/LNormal4.3 - 5.9 E12/LFWEATHERFORD [facility] HemeAutoSSWBC corrected for nucl RBC Auto (Bld) [#/Vol]5.7 E9/LNormal4.0 - 11.0 E9/[facility] HemeAutoSSNo Panel InformationOrdered By: ANGPROCESSSERVER MICROBIOLOGY on 40-01-9557Hgprg Culture CharcoalNo growth at 2 days. Final to follow at 7 days.[facility] CenterCT STROKE HEAD WOon 95-66-1666GQ STROKE HEAD WONormalThe [facility] CenterPOINT OF CARE GLUCOSEon 89-70-7301Zsdopgn [Mass/Vol]178 mg/dLCritically tvws11-269UmwPremier HealthComment on above:Performed By: #### POCGLUC ####[facility] Xcbosxtgju[address] [place], [place] [address]RrMaris Devin ChangXR CHEST 1 Von 16-98-1781NF CHEST 1 VNormalTrinity Health System [facility] Campus AUTO DIFFon 65-64-7514LBLR #0.0 103/ulNormal0.0-0.1Premier HealthComment on above:Performed By: #### CBC ####[facility] Lgjumiyaog[address] [place] [address]Dr.Yilan ChangBasophils/100 WBC (Bld)0.2 %Normal0.2-2.0The [facility] CenterComment on above:Performed By: #### CBC ####[facility] Nhgzfohyyq[address] [place], [place] [address]Dr.Yilan ChangEO #0.0 103/ul Normal0.0-0.7The [facility] CenterComment on above:Performed By: #### CBC ####[facility] Yvdpxdollt[address] [place], [place] [address]Dr. Yilan ChangEosinophils/100 WBC (Bld)0.1 %Critically low0.9-7.0The [facility] CenterComment on above:Performed By: #### CBC ####[facility] Afducpazgm05[address] [place], [place] [address]Dr.Yilan ChangErythrocyte distribution width (RBC) [Ratio]13.0 %Vsdchr75.0-15.0The [facility] Comment on above:Performed By: #### CBC ####[facility] Gboibhgvvi[address] [place], [place] [address]Dr.Tishlan ChangHematocrit (Bld) [Volume fraction]35.3 %Critically low36.0-48.0The [facility] CenterComment on above: Performed By: #### CBC ####[facility] Swfqwaanim[address] [place], [place] [address]Dr.Yilan ChangHemoglobin (Bld) [Mass/Vol]11.9 g/dL Critically low12.0-16.0The [facility] CenterComment on above:Performed By: #### CBC ####[facility] Vwqjaffxur[address] [place], [place] [address]Dr. Yilan ChangIG #0.09 10e3/ulCritically high0.00-0.03The [facility] CenterComment on above:Performed By: #### CBC ####[facility] Xrkzmlkkuo7[address] [place], [place] [address]Dr.Yilan ChangIG %0.7 %Critically high0.0-0.5The [facility] CenterComment on above:Performed By: #### CBC ####[facility] D[address]xx[address] [place] [address]Dr.Devin SureshLYMPH #2.3 103/ulNormal1.2-3.8The [facility] CenterComment on above:Performed By: #### CBC ####[facility] Mfcpiqnktp29[address] [place] [address]Dr. Devin SureshLymphocytes/100 WBC (Bld)17.3 %Critically low20.5-60.0The [facility] CenterComment on above:Performed By: #### CBC ####[facility] Fyorlnzkea[address] [place] [address]Dr.Devin SureshMANUAL DIFF REQ NONormalThe [facility] CenterComment on above:Performed By: #### CBC ####[facility] Chskpjqxpr119[address] [place], [place] [address]Dr. Devin SureshHUDSON VALLEY [facility] (RBC) [Entitic mass]30.9 ahZwmfvs33.7-34.0[facility] Comment on above:Performed By: #### CBC ####[facility] Yafifvyuhy[address] [place], [place] [address]Dr.Devin SureshMCHC (RBC) [Mass/Vol]33.7 g/dL Iifldp89.9-35.2The [facility] CenterComment on above:Performed By: #### CBC ####[facility] Tzlmvapmaw[address] [place], [place] [address]Dr. Devin SureshV (RBC) [Entitic vol]91.7 zCApdbmk89.0-99.0The [facility] Comment on above:Performed By: #### CBC ####[facility] Lkwfpswinb[address] [place], [place] [address]Dr.Deivn SureshMONO #0.6 103/ulNormal0.3-0.8 The [facility] CenterComment on above:Performed By: #### CBC ####[facility] Jtapjeckuu[address] [place], [place] [address]DrMarisDevin Kerwin Monocytes/100 WBC (Bld)4.6 %Normal1.7-12.0Premier HealthComment on above: Performed By: #### CBC ####[facility] [address]qrlyknfn[address] [place] [address]Dr.Tishemily SureshNEUT #10.2 103/ulCritically high1.4-6.5 The [facility] CenterComment on above:Performed By: #### CBC ####[facility] Yjgiejdxmg[address] [place], [place] [address]Dr.Devin Suresh Neutrophils/100 WBC (Bld)77.1 %Critically high43.0-75.0The [facility] Comment on above:Performed By: #### CBC ####[facility] Iphkvufuaq7454[address] [place], [place] [address]Dr.Devin SureshPlatelet mean volume (Bld) [Entitic vol]9.4 fLCritically low9.5-13.5The [facility] CenterComment on above: Performed By: #### CBC ####[facility] Kejzlmpmck[address] [place], [place] [address]Dr.Devin SureshPLT382 103/yqHaomru491-906Jmt [facility] CenterComment on above:Performed By: #### CBC ####[facility] Wonjtdfycb4[address] [place], [place] [address]Dr.Devin SureshRBC3.85 106/ul Critically low4.20-5.40The [facility] CenterComment on above:Performed By: #### CBC ####[facility] Jxwafgolpp0846[address] [place], [place] [address]Dr. Devin SureshWBC13.2 103/ulCritically high4.0-11.0The [facility] CenterComment on above:Performed By: #### CBC ####[facility] Mdfcoeolpy7[address] [place], [place] [address]Dr.Devin SureshCT HEAD WO CONon 95-81-2239RC HEAD WO CONNormalPremier HealthCTA HEAD WO W CONon 10-37-6832IXE HEAD WO W CON NormalPremier HealthGLYCOHEMOGLOBIN A1Con 61-55-6944NJH RECOMMENDATIONSEE [facility] Medical CenterComment on above:Result Comment: ADA RECOMMENDED LIMIT 4.0 - 6.0 ADA THERAPEUTIC TARGET < 7.0 ACTION SUGGESTED > 7.0Performed By: #### A1C ####[facility] [address]zz[address]qh[address] [place] [address]Dr.Devin ChangGlucose [Mass/Vol]249 mg/dLNormalThe [facility] CenterComment on above:Performed By: #### A1C ####[facility] Kzzjegkwsa[address] [place], [place] [address]Dr.Devin FupvcVdI4e (Bld) [Mass fraction]10.3 % Critically high4.5-6.2The [facility] CenterComment on above:Performed By: #### A1C ####[facility] Spabdvdism[address] [place], [place] [address]Dr. Tishemily ChangPOINT OF CARE GLUCOSEon 14-59-9644Cxveuks [Mass/Vol]276 mg/dL Critically vjqe83-066Gsy [facility] CenterComment on above:Performed By: #### POCGLUC ####[facility] Qctwqfserw[address] [place], [place] [address]Dr. Devin ChangGlucose [Mass/Vol]209 mg/dLCritically xrub57-710Gvs [facility] CenterComment on above:Performed By: #### POCGLUC ####[facility] Rcktwbodff7[address] [place], [place] [address]Dr. Devin ChangGlucose [Mass/Vol]286 mg/dLCritically iill81-224Wwk [facility] CenterComment on above: Performed By: #### POCGLUC ####[facility] Ospoxkszac[address] [place], [place] [address]Dr. Devin ChangPROF 14(COMP METB)on 75-00-6085Crjvxjb [Mass/Vol]2.9 g/dLCritically low3.4-5.0The [facility] CenterComment on above: Performed By: #### CMP ####[facility] Pgamyvrxyh26[address] [place], [place] [address]Dr.Devin ChangAlbumin/Globulin [Mass ratio]0.9 {ratio} NormalThe [facility] CenterComment on above:Performed By: #### CMP ####[facility] Jjcsvmalvi[address] [place], [place] [address]Ai.Yilan ChangALP [Catalytic activity/Vol]109 U/ZFmxigq69-180Pzh [facility] CenterComment on above:Performed By: #### CMP ####[facility] [address]sgsythlac[address] [place] [address]Dr.Yilan ChangALT [Catalytic activity/Vol]13 U/L Critically jxp28-26Bjr [facility] CenterComment on above:Performed By: #### CMP ####[facility] Nxfvcdpyny88[address] [place] [address]Dr. Yilan ChangAnion gap [Moles/Vol]12.1 mmol/LNormalThe [facility] CenterComment on above:Performed By: #### CMP ####[facility] Cwhlceklva[address] [place] [address]Dr.Yilan ChangAST [Catalytic activity/Vol]6 U/L Critically aag82-86Fkt [facility] CenterComment on above:Performed By: #### CMP ####[facility] Wnqcvrtwae[address] [place], [place] [address]Dr. Yilan ChangBilirubin [Mass/Vol]0.4 mg/dLNormal0.2-1.0The [facility] Comment on above:Performed By: #### CMP ####[facility] Jncrpmcioh[address] [place] [address]Dr.Yilan ChangCalcium [Mass/Vol]8.6 mg/dL Normal8.5-10.1The [facility] CenterComment on above:Performed By: #### CMP ####[facility] Demrqdzgfg98[address] [place] [address]Dr. Yilan ChangChloride [Moles/Vol]105 mmol/EWsltwe86-494Ikb [facility] Comment on above:Performed By: #### CMP ####[facility] Gjqkdvjsvc9[address] [place] [address]Dr.Yilan ChangCO2 [Moles/Vol]25.4 mmol/L Vgbzxc24.0-32.0The [facility] CenterComment on above:Performed By: #### CMP ####[facility] Fqaktzmdoo38[address] [place] [address]Dr. Yilan ChangCreatinine [Mass/Vol]1.38 mg/dLCritically high0.55-1.02The [facility] CenterComment on above:Performed By: #### CMP ####[facility] Gauchdzopv[address] [place], [place] [address]Dr.Yilan ChangEGFR-AF XTWCUVQL96 mL/min/1.05t9Ybrfuxxdyy low>=60The [facility] CenterComment on above: Performed By: #### CMP ####[facility] Wnlnxuvcpe154[address] [place], [place] [address]Dr.Yilan ChangEGFR-NON AF PSLFJXEV72 mL/min/1.73m2 Critically low>=60The [facility] CenterComment on above:Performed By: #### CMP ####[facility] Eaniwaqnax32[address] [place], [place] [address]Dr. Yilan ChangGlobulin (S) [Mass/Vol]3.3 g/dLNormalThe [facility] CenterComment on above:Performed By: #### CMP ####[facility] Wcsfmqpjez07[address] [place], [place] [address]Dr.Yilan ChangGlucose [Mass/Vol]258 mg/dLCritically bgyl41-166Vxm [facility] CenterComment on above:Performed By: #### CMP ####[facility] Fjuebbqvfj7[address] [place], [place] [address]Dr. Yilan ChangPotassium [Moles/Vol]4.5 mmol/LNormal3.5-5.1The [facility] Comment on above:Performed By: #### CMP ####[facility] Wpjbqviuan[address] [place], [place] [address]Dr.Yilan ChangProtein [Mass/Vol]6.2 g/dL Critically low6.4-8.2The [facility] CenterComment on above:Performed By: #### CMP ####[facility] Esvycaifdw46[address] [place], [place] [address]Dr. Yilan ChangSodium [Moles/Vol]138 mmol/MEgmpug596-475Yfv [facility] CenterComment on above:Performed By: #### CMP ####[facility] Qscbirxyjk18[address] [place] [address]Dr.Devin ChangUrea nitrogen [Mass/Vol]22.0 mg/dL Critically high7.0-18.0Premier HealthComment on above:Performed By: #### CMP ####[facility] T[address]rkten[address] [place] [address]Dr. Tishlan ChangUrea nitrogen/Creatinine [Mass ratio]15.9 mg/mgNormalThe [facility] CenterComment on above:Performed By: #### CMP ####[facility] Zgpngjrswr[address] [place], [place] [address]Dr.Devin SureshCARDIAC LAURA 3-6on 82-37-9869WH [Catalytic activity/Vol]46 U/TFghnss98-127Bjv [facility] on above:Performed By: #### CMREP ####[facility] Riurqetpzb54[address] [place], [place] [address]Dr. Devin KerwinCK.MB [Mass/Vol]0.87 ng/mLNormal<=3.60The [facility] on above:Performed By: #### CMREP ####[facility] Pipmwgxdqv[address] [place], [place] [address]Dr. Devin SureshHSTROP8.1 pg/mLNormal4.0-51.3The [facility] Comment on above:Result Comment: CUT-OFF POINTS HAVE BEEN ESTABLISHED BASED ON THE FOURTH UNIVERSAL DEFINITIONS OF MYOCARDIALINFARCTION. THE UPPER REFERENCE LIMIT (URL) OF TROPONIN, DEFINED THE 99TH PERCENTILE OFcTnI DISTRIBUTION IN A REFERENCE POPULATION, HAS BEEN CONFIRMED THE DECISION THRESHOLDFOR SD DIAGNO SIS.Performed By: #### CMREP ####[facility] Vqptavpvxp[address] [place], [place] [address]Dr. Devin ChangCK [Catalytic activity/Vol]51 U/LNormal 26-192The [facility] CenterComascension standish hospital on above:Performed By: #### CMREP ####[facility] Ioqoblzqbp55[address] [place], [place] [address]Dr. Tishemily KerwinCK.MB [Mass/Vol]0.85 ng/mLNormal<=3.60The [facility]ck[facility] HospitalComment on above:Performed By: #### CMREP ####[facility] Dmgpugsgkt78[address] [place], [place] [address]Dr. Yilan LnvxjGCDQFA31.8 pg/mLNormal4.0-51.3The [facility] CenterComment on above:Result Comment: CUT-OFF POINTS HAVE BEEN ESTABLISHED BASED ON THE FOURTH UNIVERSAL DEFINITIONS OF MYOCARDIALINFARCTION. THE UPPER REFERENCE LIMIT (URL) OF TROPONIN, DEFINED THE 99TH PERCENTILE OFcT nI DISTRIBUTION IN A REFERENCE POPULATION, HAS BEEN CONFIRMED THE DECISION THRESHOLDFOR SD DIAGNOSIS.Performed By: #### CMREP ####[facility] Zgpfzhwtli[address] [place], [place] [address]Dr. Devin ChangCBC AUTO DIFF on 94-91-4786VHCZ #0.1 103/ulNormal0.0-0.1The [facility] CenterComment on above: Performed By: #### CBC ####[facility] Xaglldlnjd[address] [place], [place] [address]Dr.Devin ChangBasophils/100 WBC (Bld)0.8 %Normal 0.2-2.0The [facility] CenterComment on above:Performed By: #### CBC ####[facility] Zxxkuxibgv[address] [place], [place] [address]Dr.Tishlan ChangEO # 0.2 103/ulNormal0.0-0.7The [facility] CenterComment on above:Performed By: #### CBC ####[facility] Tnfigcspvq[address] [place], [place] [address]Dr. Devin ChangEosinophils/100 WBC (Bld)2.0 %Normal0.9-7.0The [facility] Comment on above:Performed By: #### CBC ####[facility] Woebxrxaub[address] [place], [place] [address]Dr.Devin ChangErythrocyte distribution width (RBC) [Ratio]13.1 %Ubpjjs39.0-15.0The [facility] CenterComment on above: Performed By: #### CBC ####[facility] Dcrscppfpz[address] [place], [place] [address]Dr.Yilan ChangHematocrit (Bld) [Volume fraction]35.0 % Critically low36.0-48.0The [facility] CenterComment on above:Performed By: #### CBC ####[facility] Ktzpjixc[address] [place], [place] [address]Dr. Devin SureshHemoglobin (Bld) [Mass/Vol]11.9 g/dLCritically low12.0-16.0The [facility] HospitalComment on above:Performed By: #### CBC ####[facility] Lodjoefhjc[address] [place], [place] [address]Dr.Devin ChangIG #0.05 10e3/ulCritically high0.00-0.03The [facility] CenterComment on above:Performed By: #### CBC ####[facility] Syhccusaib[address] [place], [place] [address]Dr.Tishemily ChangIG %0.5 %Normal0.0-0.5The [facility] CenterComment on above: Performed By: #### CBC ####[facility] Jjdhkemfjl[address] [place], [place] [address]Dr.Devin ChangLYMPH #3.4 103/ulNormal1.2-3.8The [facility] CenterComment on above:Performed By: #### CBC ####[facility] Lgwgkppyze[address] [place], [place] [address]Dr.Devin SureshLymphocytes/100 WBC (Bld)34.2 %Vqegvd42.5-60.0The [facility] CenterComment on above:Performed By: #### CBC ####[facility] Knflzwyryb[address] [place], [place] [address]Dr.Devin SureshMANUAL DIFF REQNONormalThe [facility] CenterComment on above:Performed By: #### CBC ####[facility] Bnpsmdkmrj[address] [place], [place] [address]Dr.Devin SureshMCH (RBC) [Entitic mass]30.6 pgNormal 26.7-34.0The [facility] CenterComment on above:Performed By: #### CBC ####[facility] Uaspilxkez[address] [place], [place] [address]Dr. Devin SureshMCHC (RBC) [Mass/Vol]34.0 g/nVVwutxt22.9-35.2The [facility] Comment on above:Performed By: #### CBC ####[facility] [address] [place] [address]Dr.Devin SureshMCV (RBC) [Entitic vol]90.0 fL Lydrzj63.0-99.0The [facility] CenterComment on above:Performed By: #### CBC ####[facility] Ueucdtszcm[address] [place] [address]Dr. Devin ChangMONO #0.7 103/ulNormal0.3-0.8The [facility] CenterComment on above: Performed By: #### CBC ####[facility] Dqpfobntsu65[address] [place] [address]Dr.Devin ChangMonocytes/100 WBC (Bld)6.6 %Normal 1.7-12.0The [facility] CenterComment on above:Performed By: #### CBC ####[facility] Yxbfwmabwr[address] [place], [place] [address]Dr. Devin ChangNEUT #5.6 103/ulNormal1.4-6.5The [facility] CenterComment on above: Performed By: #### CBC ####[facility] Eelhyzuven06[address] [place], [place] [address]Dr.Devin ChangNeutrophils/100 WBC (Bld)55.9 %Normal 43.0-75.0The [facility] CenterComment on above:Performed By: #### CBC ####[facility] Fqmieisaua[address] [place] [address]Dr. Devin SureshPlatelet mean volume (Bld) [Entitic vol]9.1 fLCritically low9.5-13.5 The [facility] CenterComment on above:Performed By: #### CBC ####[facility] Rqiqvthjiv[address] [place] [address]Dr.Tishlan IezatJYF360 103/odRndkis514-017Cll [facility] CenterComment on above:Performed By: #### CBC ####[facility] Bjsgnjuehi[address] [place], [place] [address]Tm. Devin SureshRBC3.89 106/ulCritically low4.20-5.40The [facility] on above:Performed By: #### CBC ####[facility] Pamjbdwueo[address] [place], [place] [address]Qo.Devin SureshWBC10.0 103/ulNormal4.0-11.0The [facility] CenterComment on above:Performed By: #### CBC ####[facility] Wohzrkfyvj[address] [place], [place] [address]Ob.Devin ChangCT LSPINE WO CONon 20-75-2002CH LSPINE WO CONNormalPremier HealthCovid-19 PCR (CVDTBH) on 32-10-3525OZSL-CoV-2 (COVID-19) RNA EBONIE+probe Ql (Unsp spec)Not detected NormalNOT DETECTEDThe [facility] CenterComasc[facility] on above:Result Comment: When diagnostic testing is negative, the possibility of a false negative should be c onsidered inthe context of a patient's recent exposures [...] for this test is supported by the [place] of Health and Human Service's declaration that circumstances exist to justify the emergency use of in vitro diagnostics for the detection and/or diagnosis of the virus that causes COVID-19. This EUA will remain in effect for the duration of the COVID-19declaration justifying emergency of IVDs, unless it is terminated or revoked by the FDA (after which the test may no longer be used).Performed By: #### CVDTBH ####[facility] Eebiybyhjr[address] [place], [place] [address]Xh. Devin SureshLIPID PROFILEon 62-40-5141PPFJ-HDL RATIO NORMSEE BELOWNormal The [facility] on above:Result Comment: 3.3 - 4.4 LOW RISK 4.4 - 7.1 AVERAGE RISK 7.1 - 11.0 MODERATE RISK >11.0 HIGH RISKPerformed By: #### LIPID, TSH ####[facility] Qljwwmvtki7[address] [place], [place] [address]Dr. Yilan ChangCholesterol [Mass/Vol]231 mg/dLCritically high<=200The [facility] on above:Performed By: #### LIPID, TSH ####[facility] Ijlhkclrae683[address] [place], [place] [address]Dr. Yilan Suresh Cholesterol in HDL [Mass/Vol]52 mg/yRMobrnx69-14DxxPremier HealthComascension standish hospital on above:Performed By: #### LIPID, TSH ####[facility] Ohzjnlgeju74[address] [place], [place] [address]Dr. Yilan ChangCholesterol in LDL [Mass/Vol]156.6 mg/dLGrand Lake Joint Township District Memorial HospitalComascension standish hospital on above:Performed By: #### LIPID, TSH ####[facility] Aghikhxxjs9376[address] [place], [place] [address]Dr. Yilan ChangCholesterol.total/Cholesterol in HDL [Mass ratio]4.4 {ratio}NormalThe [facility] CenterComasc[facility] on above:Performed By: #### LIPID, TSH ####[facility] Bdrpvxfmar2867[address] [place], [place] [address]Dr. Yilan ChangHDL NORMAL> or = 60 mg/dl - LOW CARDIOVASCULAR RISK <40 mg/dl - HIGH CARDIOVASCULAR RISKGrand Lake Joint Township District Memorial HospitalComascension standish hospital on above:Performed By: #### LIPID, TSH ####[facility] Omhbsscsdn44[address] [place], [place] [address]Dr. Yilan ChangLDL CALC NORMALSEE BELOWGrand Lake Joint Township District Memorial HospitalComascension standish hospital on above: Result Comment: <100 mg/dl OPTIMAL 100 - 129 mg/dl NEAR OR ABOVE OPTIMAL 130 - 159 mg/dl BORDERLINE HIGH 160 - 189 mg/dl HIGH >190 mg/dl VERY HIGHPerformed By: #### LIPID, TSH ####[facility] Uqcrvfpfeg5466[address] [place], [place] [address]Dr. Yilan ChangTriglyceride [Mass/Vol]112 mg/dLNormal<=150Premier HealthComment on above:Performed By: #### LIPID, TSH ####[facility] Qkvjatsdnt8865[address] [place], [place] [address]Dr. Yilan ChangVLDL CALC22.4 mg/dLNormalThe [facility] CenterComment on above:Performed By: #### LIPID, TSH ####[facility] Bfoizqhzne232[address] [place], [place] [address]Dr. Yilan ChangPOINT OF CARE GLUCOSEon 70-91-3578Jodmryh [Mass/Vol]295 mg/dL Critically dbis98-906PnsPremier HealthComment on above:Performed By: #### POCGLUC ####[facility] Xewoeuvjtx13[address] [place], [place] [address]Dr. Yilan ChangGlucose [Mass/Vol]157 mg/dLCritically ttct37-683RhtPremier HealthComment on above:Performed By: #### POCGLUC ####[facility] Uydihlzxxw6677[address] [place], [place] [address]Dr. Yilan ChangGlucose [Mass/Vol]172 mg/dLCritically kuav81-014CumPremier HealthComment on above: Performed By: #### POCGLUC ####[facility] Psfnzuuiro820[address] [place], [place] [address]Dr. Yilan ChangGlucose [Mass/Vol]178 mg/dLCritically ghaw10-046CxbPremier HealthComment on above:Performed By: #### POCGLUC ####[facility] Lysgfqkbnf2594[address] [place], [place] [address]Dr. Yilan ChangGlucose [Mass/Vol]241 mg/dLCritically ghsm58-650MnpPremier Health Comment on above:Performed By: #### POCGLUC ####[facility] Chytzhasdg160[address] [place], [place] [address]Dr. Yilan ChangPROF 14(COMP METB)on 23-45-3843Pilaehw [Mass/Vol]3.1 g/dLCritically low3.4-5.0[facility] Comment on above:Performed By: #### CMP ####[facility] Aojnofcgvg[address] [place] [address]Dr.Yilan ChangAlbumin/Globulin [Mass ratio] 0.9 {ratio}NormalThe [facility] CenterComment on above:Performed By: #### CMP ####[facility] Stiwthgque8809[address] [place], [place] [address]Dr. Yilan ChangALP [Catalytic activity/Vol]114 U/UAydabv81-984Qxf [facility] Comment on above:Performed By: #### CMP ####[facility] Xlztvdzjoo7109[address] [place], [place] [address]Dr.Yilan ChangALT [Catalytic activity/Vol]9 U/LCritically wlm99-85Buk [facility] CenterComment on above:Performed By: #### CMP ####[facility] Jyqkctkuhy3574[address] [place], [place] [address]Dr. Yilan ChangAnion gap [Moles/Vol]12.3 mmol/LNormalThe [facility] CenterComment on above:Performed By: #### CMP ####[facility] Icwsijcuqy2019[address] [place], [place] [address]Dr.Yilan ChangAST [Catalytic activity/Vol]7 U/L Critically nfb42-17Hec [facility] CenterComment on above:Performed By: #### CMP ####[facility] Muaglddwbz959[address] [place], [place] [address]Dr. Yilan ChangBilirubin [Mass/Vol]0.4 mg/dLNormal0.2-1.0The [facility] Comment on above:Performed By: #### CMP ####[facility] Okvblcucaf9247[address] [place], [place] [address]Dr.Yilan ChangCalcium [Mass/Vol]8.3 mg/dL Critically low8.5-10.1The [facility] CenterComment on above:Performed By: #### CMP ####[facility] Ngmlgfbwvh0832[address] [place], [place] [address]Dr. Yilan ChangChloride [Moles/Vol]103 mmol/MOlgakn46-246Ugh [facility] Comment on above:Performed By: #### CMP ####[facility] Zsmddiggjt418[address] [place], [place] [address]Dr.Yilan ChangCO2 [Moles/Vol]27.2 mmol/L Eibcjh66.0-32.0Premier HealthComment on above:Performed By: #### CMP ####[facility] Reuzrbweta208[address] [place], [place] [address]Dr. Yilan ChangCreatinine [Mass/Vol]0.95 mg/dLNormal0.55-1.02[facility] Comment on above:Performed By: #### CMP ####[facility] Yaucoifnwj820[address] [place], [place] [address]Dr.Yilan ChangEGFR-AF CONGOLESE>60Normal>=60 The [facility] CenterComment on above:Performed By: #### CMP ####[facility] Yqlwfydpfr3569[address] [place], [place] [address]Dr.Yilan ChangEGFR- NON AF CONGOLESE>60Normal>=60Premier HealthComment on above:Performed By: #### CMP ####[facility] Tmhfmnzbvf593[address] [place], [place] [address]Dr.Yilan ChangGlobulin (S) [Mass/Vol]3.3 g/dLNormalThMartins Ferry Hospital Comment on above:Performed By: #### CMP ####[facility] Wsonalbnvn0701[address] [place], [place] [address]Dr.Yilan ChangGlucose [Mass/Vol]186 mg/dL Critically pbpp15-308Jpb [facility] CenterComment on above:Performed By: #### CMP ####[facility] Vvandukjyl4801[address] [place], [place] [address]Dr. Yilan ChangPotassium [Moles/Vol]3.5 mmol/LNormal3.5-5.1The [facility] Comment on above:Performed By: #### CMP ####[facility] Nacwhngkub5879[address] [place], [place] [address]Dr.Yilan ChangProtein [Mass/Vol]6.4 g/dL Normal6.4-8.2Premier HealthComment on above:Performed By: #### CMP ####[facility] Ezosslrtxz4439[address] [place], [place] [address]Dr. Yilan ChangSodium [Moles/Vol]139 mmol/JMifpdc957-644Dte [facility] Mary Hospitalment on above:Performed By: #### CMP ####[facility] Cavnrtsiqy[address] [place] [address]Dr.Devin ChangUrea nitrogen [Mass/Vol]22.0 mg/dL Critically high7.0-18.0The [facility] CenterComment on above:Performed By: #### CMP ####[facility] Wqjlkiidka992[address] [place], [place] [address]Dr. Tishlan ChangUrea nitrogen/Creatinine [Mass ratio]23.2 mg/mgNormalThe [facility] CenterComment on above:Performed By: #### CMP ####[facility] Lmxtewuggr9844[address] [place], [place] [address]Dr.Devin ChangTSHon 54-05-2642GKF9.081 uIU/mLCritically high0.358-3.740The [facility] CenterComasc[facility] stand[facility] hospital on above:Performed By: #### LIPID, TSH ####[facility] Musbynqmtw5168[address] [place], [place] [address]Dr. Devin SureshCARDIAC LAURA ADMITon 51-93-1501FP [Catalytic activity/Vol]58 U/UCmfozj33-682Upk [facility] on above: Performed By: #### CMADM, BMP ####[facility] Zivsbnhjtc2979[address] [place], [place] [address]Dr. Devin SureshCK.MB [Mass/Vol]0.80 ng/mLNormal<=3.60 The [facility] on above:Performed By: #### CMADM, BMP ####[facility] Jbngmezksa3318[address] [place], [place] [address]Dr. Devin Suresh HSTROP7.9 pg/mLNormal4.0-51.3The [facility] CenterComasc[facility] stand[facility] hospital on above:Result Comment: CUT-OFF POINTS HAVE BEEN ESTABLISHED BASED ON THE FOURTH UNIVERSAL DEFINITIONS OF MYOCARDIALINFARCTION. THE UPPER REFERENCE LIMIT (URL) OF TROPONIN, DEFINED THE 99TH PERCENTILE OFcTnI DISTRIBUTION IN A REFERENCE POPULATION, HAS BEEN CONFIRMED THE DECISION THRESHOLDFOR SD DIAGNOSIS. Performed By: #### CMADM, BMP ####[facility] Udrfshehmm[address] [place] [address]Dr. Yilan NlcooXRR94 ng/mLNormal9-82The [facility] CenterComment on above:Performed By: #### CMADM, BMP ####[facility] Nwjvclujwx23[address] [place] [address]Dr. Yilan ChangCBC AUTO DIFF on 85-75-9409OYEP #0.1 103/ulNormal0.0-0.1The [facility] CenterComment on above: Performed By: #### CBC ####[facility] Tukfnbjwkp156[address] [place], [place] [address]Dr.Yilan ChangBasophils/100 WBC (Bld)0.8 %Normal 0.2-2.0The [facility] CenterComment on above:Performed By: #### CBC ####[facility] Jektqpifmj6257[address] [place], [place] [address]Dr.Yilan ChangEO # 0.1 103/ulNormal0.0-0.7The [facility] CenterComment on above:Performed By: #### CBC ####[facility] Qtptfmjmni0524[address] [place], [place] [address]Dr. Yilan ChangEosinophils/100 WBC (Bld)1.1 %Normal0.9-7.0The [facility] Comment on above:Performed By: #### CBC ####[facility] Lglnwknpiw6528[address] [place], [place] [address]Dr.Yilan ChangErythrocyte distribution width (RBC) [Ratio]12.9 %Qniygj10.0-15.0The [facility] CenterComment on above: Performed By: #### CBC ####[facility] Cjzeqngbuj894[address] [place], [place] [address]Dr.Tishlan ChangHematocrit (Bld) [Volume fraction]37.6 % Tcahnz96.0-48.0The [facility] CenterComment on above:Performed By: #### CBC ####[facility] Mjornawfto8069[address] [place], [place] [address]Dr. Yilan ChangHemoglobin (Bld) [Mass/Vol]12.9 g/jMFlmqua19.0-16.0The [facility] CenterComment on above:Performed By: #### CBC ####[facility] Ukpykpphxp4454[address] [place], [place] [address]DrGonzalo SureshIG #0.06 10e3/ulCritically high0.00-0.03The [facility]ckley HospitalComment on above:Performed By: #### CBC ####[facility] Auhlfiitlh1264[address] [place], [place] [address]Dr.Devin Suresh %0.6 %Critically high0.0-0.5The [facility]ckley HospitalComment on above:Performed By: #### CBC ####[facility] Jvmctvgygh032[address] [place], [place] [address]Dr.Devin SureshMOUNTAIN STATES HE[facility] #2.4 103/ulNormal1.2-3.8The [facility] CenterComment on above:Performed By: #### CBC ####[facility] Fnhzwwaihr5836[address] [place], [place] [address]Dr.Devin SureshMontefiore New Rochelle Hospitalhocytes/100 WBC (Bld)22.2 %Buywhh70.5-60.0The [facility] CenterComment on above:Performed By: #### CBC ####[facility] Uitgmgifzf5329[address] [place], [place] [address]Dr.Devin SureshMARIETTA OSTEOPATHIC CLINIC DIFF REQNONormalThe [facility] CenterComment on above:Performed By: #### CBC ####[facility] Mqemlpgchc7185[address] [place], [place] [address]Dr.Devin SureshHUDSON VALLEY [facility] (RBC) [Entitic mass]30.7 pgNormal 26.7-34.0The [facility] CenterComment on above:Performed By: #### CBC ####[facility] Tnqrxcnxia897[address] [place], [place] [address]DrMaris SureshHARLEM [facility] (RBC) [Mass/Vol]34.3 g/jOZmdjxw00.9-35.2The [facility] Comment on above:Performed By: #### CBC ####[facility] Ctzrpnczkc9008[address] [place], [place] [address]Dr.Devin SureshMCV (RBC) [Entitic vol]89.5 fL Cskbfk30.0-99.0The [facility] Hospitalment on above:Performed By: #### CBC ####[facility] Wrvsgyreud2837[address] [place], [place] [address]Dr. Devin SureshMONO #0.6 103/ulNormal0.3-0.8The [facility] CenterComment on above: Performed By: #### CBC ####[facility] Qisidzckpk108[address] [place], [place] [address]Dr.Devin SureshMonocytes/100 WBC (Bld)5.3 %Normal 1.7-12.0The [facility] CenterComment on above:Performed By: #### CBC ####[facility] Rjaancjskh8479[address] [place], [place] [address]Dr. Devin SureshNEUT #7.4 103/ulCritically high1.4-6.5The [facility] CenterComment on above:Performed By: #### CBC ####[facility] Hdyxwjokrg1986[address] [place], [place] [address]Dr.Devin SureshNeutrophils/100 WBC (Bld)70.0 %Normal 43.0-75.0The [facility] CenterComment on above:Performed By: #### CBC ####[facility] Vynbezagbh4215[address] [place], [place] [address]Dr. Devin SureshPlatelet mean volume (Bld) [Entitic vol]9.6 fLNormal9.5-13.5The [facility] CenterComment on above:Performed By: #### CBC ####[facility] Wmuzyakueb3399[address] [place], [place] [address]Dr.Devin SureshPLT382 103/ul Jtvecx464-474Xop [facility] CenterCom[facility] on above:Performed By: #### CBC ####[facility] Uphegtqbqz227[address] [place], [place] [address]Dr. Devin ChangRBC4.20 106/ulNormal4.20-5.40The [facility] CenterComment on above: Performed By: #### CBC ####[facility] Zcjepuhngy9[address] [place] [address]Dr.Devin VuqxrAJY84.6 103/ulNormal4.0-11.0The [facility] CenterComment on above:Performed By: #### CBC ####[facility] Kgyselgzyg2913[address] [place], [place] [address]Dr.Tishemily ChangCT STROKE HEAD WOon 67-70-5893IZ STROKE HEAD WONormalThe [facility] CenterPOINT OF CARE GLUCOSE on 22-74-3450Pwuwmql [Mass/Vol]453 mg/dLCritically munv56-356Pns [facility] CenterComment on above:Performed By: #### POCGLUC ####[facility] Cbvifidvpg196[address] [place], [place] [address]Dr. Tishemily ChangPROF CHEM 8 (BAS METB)on 25-57-8708Xpjeq gap [Moles/Vol]11.1 mmol/LNormalThe [facility] CenterComment on above:Performed By: #### CMADM, BMP ####[facility] Yijqypihxi01[address] [place], [place] [address]Dr. Devin ChangCalcium [Mass/Vol]8.6 mg/dLNormal8.5-10.1The [facility] CenterComasc[facility] stand[facility] hospital on above:Performed By: #### CMADM, BMP ####[facility] Buwejwdmld4415[address] [place], [place] [address]Dr. Devin ChangChloride [Moles/Vol]98 mmol/LNormal 98-107The [facility] CenterComasc[facility] stand[facility] on above:Performed By: #### CMADM, BMP ####[facility] Pfnjjarjls[address] [place], [place] [address]Dr. Devin ChangCO2 [Moles/Vol]29.0 mmol/ZVmgdxb02.0-32.0Prem[facility] HealthComascension standish hospital on above:Performed By: #### CMADM, BMP ####[facility] Kdxfnbgsdz9859[address] [place], [place] [address]Dr. Tishemily ChangCreatinine [Mass/Vol]1.16 mg/dLCritically high0.55-1.02The [facility] CenterComment on above:Performed By: #### CMADM, BMP ####[facility] Zjdxyfnhdt[address] [place] [address]Dr. Yilan ChangEGFR-AF CONGOLESE>60Normal>=60The [facility] Comment on above:Performed By: #### HOWARD, BMP ####[facility] Uiwzcirjoi[address] [place] [address]Dr. Yilan ChangEGFR-NON AF CPZJSQSN73 mL/min/1.10i0Abspsogcdi low>=60The [facility] CenterComment on above: Performed By: #### HOWARD, BMP ####[facility] Uznsgqdywt89[address] [place], [place] [address]Dr. Yilan ChangGlucose [Mass/Vol]428 mg/dLCritically idtr70-062Lzq [facility] CenterComment on above:Performed By: #### HOWARD, BMP ####[facility] Plbysckoia275[address] [place], [place] [address]Dr. Yilan ChangPotassium [Moles/Vol]4.1 mmol/LNormal3.5-5.1The [facility] Comment on above:Performed By: #### HOWARD, BMP ####[facility] Svhthqseee5107[address] [place], [place] [address]Dr. Yilan ChangSodium [Moles/Vol]134 mmol/LCritically grz131-246Vuf [facility] CenterComment on above: Performed By: #### HOWARD, BMP ####[facility] Tqvybxizqe699[address] [place], [place] [address]Dr. Yilan ChangUrea nitrogen [Mass/Vol]23.0 mg/dL Critically high7.0-18.0The [facility] CenterComment on above:Performed By: #### HOWARD, BMP ####[facility] Yqhbeievtx9[address] [place], [place] [address]Dr. Yilan ChangUrea nitrogen/Creatinine [Mass ratio]19.8 mg/mgNormalThe [facility] CenterComment on above:Performed By: #### CMADM, BMP ####[facility] Dugecmrpjw5747[address] [place], [place] [address]Dr. Yilan ChangXR CHEST 1 Von 97-82-4411HZ CHEST 1 VNormalThe Hinckley HospitalCHEMISTRYOrdered By: SYSTEM SYSTEM on 07-76-1271Qneflzdl I.cardiac [Mass/Vol]4.30 pg/mLLow10.10 - 27.10 pg/mLFTMC RemisolAnion gap [Moles/Vol]13 mmol/LNormal6 - 16 mEq/LFTMC RemisolCalcium [Mass/Vol]9.2 mg/dLNormal8.9 - 11.1 mg/dLFTMC RemisolChloride [Moles/Vol]97 mmol/UOiu132 - 111 mmol/LFTMC RemisolCO2 [Moles/Vol]26 mmol/L Qdyofj15 - 31 mmol/LFTMC RemisolCreatinine [Mass/Vol]0.9 mg/dLNormal0.5 - 1.3 mg/dLFTMC RemisolGFR/1.73 sq M.predicted among blacks MDRD (S/P/Bld) [Vol rate/Area]mL/min/1.73 i1Sqikky>=59mL/min/1.73 m2[facility] Chem SGFR/1.73 sq M.predicted among non-blacks MDRD (S/P/Bld) [Vol rate/Area]mL/min/1.73 v8Tuiucw >=59mL/min/1.73 m2[facility] Chem SGlucose [Mass/Vol]310 mg/iMFvhl94 - 199 mg/dLFTMC RemisolPotassium [Moles/Vol]3.5 mmol/LNormal3.5 - 5.3 mmol/LFTMC RemisolSodium [Moles/Vol]132 mmol/ABhe045 - 145 mmol/LFTMC RemisolUrea nitrogen [Mass/Vol]16 mg/dLNormal5 - 21 mg/dLFTMC RemisolUrea nitrogen/Creatinine [Mass ratio]18 mg/mg Ofrmas09 - 20[facility] RemisolValproate [Moles/Vol]microgram/mLLow50 - 99 mcg/mLFTMC RemisolComment on above:Result Comment: Result verified by dilutionCHEMISTRY Ordered By: Sharla Villagomez on 40-14-4579Lwfvgqyt I.cardiac [Mass/Vol]5.90 pg/mLLow10.10 - 27.10 pg/mLFTMC RemisolHEMATOLOGYOrdered By: SYSTEM SYSTEM on 82-07-7217Xqvhgjyzn/100 WBC (Bld)1.1 %Normal0.0 - 2.0 %[facility] HemeAutoSS Basophils/Leukocytes Auto (Bld) [Pure # fraction]0.1 E9/LNormal0.0 - 0.2 E9/L [facility] HemeAutoSSEosinophils/100 WBC (Bld)1.9 %Normal0.0 - 8.0 %[facility] HemeAutoSS Eosinophils/Leukocytes Auto (Bld) [Pure # fraction]0.2 E9/LNormal0.0 - 0.5 E9/L [facility] HemeAutoSSLymphocytes/100 WBC (Bld)21.6 %Mhyova88.0 - 50.0 %[facility] HemeAutoSS Lymphocytes/Leukocytes Auto (Bld) [Pure # fraction]2.0 E9/LNormal1.0 - 4.0 E9/L [facility] HemeAutoSSMonocytes/100 WBC (Bld)5.0 %Normal4.0 - 14.0 %[facility] HemeAutoSS Monocytes/Leukocytes Auto (Bld) [Pure # fraction]0.5 E9/LNormal0.2 - 1.0 E9/L [facility] HemeAutoSSNeutrophils/100 WBC (Bld)70.4 %Rwgbrw46.0 - 75.0 %[facility] HemeAutoSS Neutrophils/Leukocytes Auto (Bld) [Pure # fraction]6.7 E9/LNormal2.0 - 7.5 E9/L [facility] HemeAutoSSHEMATOLOGYOrdered By: Shannen Sosa on 10-03-0435Jdeeuxmmhxx distribution width (RBC) [Ratio]13.4 %Qlifoo49.9 - 14.2 %[facility] HemeAutoSS Hematocrit (Bld) [Volume fraction]38.3 %Xtmbor62.0 - 46.0 %[facility] HemeAutoSS Hemoglobin (Bld) [Mass/Vol]13.0 g/fFNhlete70.0 - 16.0 gm/dLFTMC HemeAutoSSMCH (RBC) [Entitic mass]29.7 rdXnbtxk62.0 - 34.0 pgFTMC HemeAutoSSMCHC (RBC) [Mass/Vol]33.9 g/nOTaktuo86.4 - 36.0 gm/dLFTMC HemeAutoSSMCV (RBC) [Entitic vol] 87.6 eJNurtso63.0 - 100.0 fLPOST [facility]UTE MED[facility] [place] [place] HemeAutoSSPlatelet mean volume (Bld) [Entitic vol]7.5 fLNormal6.4 - 10.8 fLPOST [facility]UTE [facility] [place] HemeAutoSSPlatelets (Bld) [#/Vol]343.0 E9/L Htdymq926.0 - 500.0 E9/LF[facility] [place] HemeAutoSSRBC (Bld) [#/Vol]4.4 E12/LNormal4.3 - 5.9 E12/LFWEATHERF[facility] [place] HemeAutoSSWBC corrected for nucl RBC Auto (Bld) [#/Vol]9.5 E9/LNormal 4.0 - 11.0 E9/LFWEATHERF[facility] [place] HemeAutoSSCULTURE URINEon [id number] URINENormalThe [facility] Fayette Medical CenterComment on above:Performed By: #### URCX ####[facility] [address] [place], [place] [address]Dr. Devin ChangACETONE SERUM on [id number]OUDMFOzc Bellevue HospitalComment on above: Performed By: #### ACETON ####[facility] Ping[address] [place], [place] [address]Dr. Devin ChangCBC AUTO DIFFon [id number] #0.0 103/ulNormal0.0-0.1Premier HealthComment on above:Performed By: #### CBC ####[facility] [id number] [address] [place], [place] [address]Dr. Tishlan ChangBasophils/100 WBC (Bld)0.4 %Normal0.2-2.0Premier HealthComment on above:Performed By: #### CBC ####[facility] Pnehngoonp[address] [place], [place] [address]Dr.Yilan ChangEO #0.1 103/ulNormal0.0-0.7The [facility] CenterComment on above:Performed By: #### CBC ####[facility] Sprpwwpubt[address] [place], [place] [address]Dr.Yilan ChangEosinophils/100 WBC (Bld)1.0 %Normal0.9-7.0The [facility] CenterComment on above:Performed By: #### CBC ####[facility] Yutrcdagaw[address] [place], [place] [address]Dr.Devin ChangErythrocyte distribution width (RBC) [Ratio]12.3 %Normal 11.0-15.0The [facility] CenterComment on above:Performed By: #### CBC ####[facility] Jlzpvlqtxo[address] [place], [place] [address]Dr. Devin ChangHematocrit (Bld) [Volume fraction]34.4 %Critically low36.0-48.0The [facility] CenterComment on above:Performed By: #### CBC ####[facility] Ltklawdrgf[address] [place], [place] [address]Dr.Devin ChangHemoglobin (Bld) [Mass/Vol]11.7 g/dLCritically low12.0-16.0The [facility] CenterComment on above:Performed By: #### CBC ####[facility] Wapnhxdbhj[address] [place], [place] [address]Dr.Yiemily ChangIG #0.09 10e3/ulCritically high0.00-0.03 The [facility] CenterComment on above:Performed By: #### CBC ####[facility] Fprislhnry94[address] [place], [place] [address]Dr.Devin ChangIG % 0.9 %Critically high0.0-0.5The [facility] CenterComment on above:Performed By: #### CBC ####[facility] Gkschyyfmy8[address] [place], [place] [address]Dr.Tishemily ChangLYMPH #2.0 103/ulNormal1.2-3.8The [facility] CenterComment on above:Performed By: #### CBC ####[facility] Kfhldwkyxm7[address] [place], [place] [address]Dr.Tishemily ChangLymphocytes/100 WBC (Bld)19.8 % Critically low20.5-60.0The [facility] CenterComment on above:Performed By: #### CBC ####[facility] [address]ph[address] [place] [address]Dr. Devin SureshMANUAL DIFF REQNONormalThe [facility] CenterComment on above: Performed By: #### CBC ####[facility] Hqcatyyhki[address] [place] [address]Dr.Devin SureshH (RBC) [Entitic mass]30.2 pgNormal 26.7-34.0The [facility]ckley HospitalComment on above:Performed By: #### CBC ####[facility] Chpdcajxvp[address] [place], [place] [address]Dr. Devin SureshHC (RBC) [Mass/Vol]34.0 g/iREszgtc81.9-35.2The [facility] Comment on above:Performed By: #### CBC ####[facility] Kgohnmxpuv4[address] [place], [place] [address]Dr.Devin SureshMCV (RBC) [Entitic vol]88.9 fL Tlqiwf95.0-99.0The [facility] CenterComment on above:Performed By: #### CBC ####[facility] Eeuufztdvr[address] [place], [place] [address]Dr. Devin SureshMONO #0.6 103/ulNormal0.3-0.8The [facility] CenterComment on above: Performed By: #### CBC ####[facility] Pazlcqalom[address] [place], [place] [address]Dr.Tishemily ChangMonocytes/100 WBC (Bld)6.4 %Normal 1.7-12.0The [facility] CenterComment on above:Performed By: #### CBC ####[facility] Ipjgemwotm[address] [place], [place] [address]Dr. Tishemily SureshNEUT #7.0 103/ulCritically high1.4-6.5The [facility] CenterComment on above:Performed By: #### CBC ####[facility] Vmkkfjmpwb[address] [place], [place] [address]Dr.Devin KerwinNeutrophils/100 WBC (Bld)71.5 %Normal 43.0-75.0The [facility] CenterComment on above:Performed By: #### CBC ####[facility] Rllveqsusl[address] [place] [address]Dr. Devin SureshPlatelet mean volume (Bld) [Entitic vol]8.4 fLCritically low9.5-13.[address] [facility] Hospitalment on above:Performed By: #### CBC ####[facility] Cthsdjvpgw[address] [place] [address]Dr.Devin SureshPLT333 103/pbLvarvi259-586Wtu [facility] CenterComment on above:Performed By: #### CBC ####[facility] Inxofsrelm47[address] [place] [address]Dr. Devin uSreshRBC3.87 106/ulCritically low4.20-5.40The [facility] on above:Performed By: #### CBC ####[facility] Fqhwxmvykp30[address] [place] [address]Dr.Devin SureshWBC9.8 103/ulNormal4.0-11.0The [facility] on above:Performed By: #### CBC ####[facility] Ycihavbpxk[address] [place] [address]Dr.Devin SureshCT HEAD WO CON on 14-41-2180CF HEAD WO CONNormalThe [facility] CenterDEPAKENE/VALPROICon 90-95-2621KKPYHDDU<3.0Critically low50.0-100.0The [facility] on above:Performed By: #### CMP, VALP, HSTROPN ####[facility] [address]lr[address]ukwaj[address] [place] [address]Dr. Yilan ChangER URINE PROFILEon 02-18-2022 Bilirubin Ql (U)NegativeNormalNEGATIVEThe [facility] on above: Performed By: #### MERCEDEZ LOCKE ####[facility] Rj[address]rbohrc[address] [place], [place]Dr. Devin ChangClarity (U)CLEARNormalCLEARThe [facility] on above:Performed By: #### MERCEDEZ LOCKE ####[facility] Lzxshlgaed8[address] [place], [place]Dr. Yilan ChangColor (U)LT. YELLOWNormalYELLOWPremier HealthComment on above:Performed By: #### SAMANTHA LOCKER ####[facility] Bayetpklyv[address] [place], [place] [address]Cb. Yilan ChangERUAHDA micrscopic examination will be performed if indicated.NormalThe [facility]inckley HospitalComment on above:Performed By: #### SAMANTHA LOCKER ####[facility] Mrchvcrlnr27[address] [place], [place]Dr. Yilan ChangGlucose Ql (U)>1000AbnormalNEGATIVEThe [facility] CenterComment on above:Performed By: #### SAMANTHA LOCKER ####[facility] Jsdukslffq7[address] [place], [place]Dr. Yilan ChangHemoglobin Ql (U)SMALLAbnormal NEGATIVEPremier HealthComment on above:Performed By: #### SAMANTHA LOCKER ####[facility] Ozgslyugsz6349 [place], [place]Dr. Yilan ChangKetones Ql (U)40 mg/dlAbnormalNEGATIVEPremier HealthComment on above:Performed By: #### SAMANTHA LOCKER ####[facility] Eksgfwoinp74[address] [place], [place]Dr. Yilan ChangLEUKOCYTESTRACEAbnormalNEGATIVEPremier HealthComment on above:Performed By: #### SAMANTHA LOCKER ####[facility] Atwgnerypr0807 [place], [place]Dr. Yilan Suresh Nitrite Ql (U)PositiveAbnormalNEGATIVEPremier HealthComment on above: Performed By: #### SAMANTHA LOCKER ####[facility] Nscbeslboh[address] [place] [address]Dr. Yilan ChangpH (U)7.0 [pH]Normal5-9The [facility] CenterComment on above:Performed By: #### SAMANTHA LOCKER ####[facility] Enmqigdfha[address] [place] [address]Dr. Devin SureshProtein (U) [Mass/Vol]100 mg/dLAbnormalNEGATIVE/ TRACEThe [facility] CenterComment on above: Performed By: #### SAMANTHA LOCKER ####[facility] Rmxhwvgops64[address] [place] [address]Dr. Devin SureshSPEC GRAVITY1.728Qiuguu4.005-<=1.025The [facility] CenterComment on above:Performed By: #### CHUCKY ERUR ####[facility] Adducszrlx[address] [place] [address]Dr. Devin SureshUR MICRO INDINDICATEDNormalThMartins Ferry HospitalComment on above:Performed By: #### CHUCKY ERUR ####[facility] Kjzjxwyrlw9726 [address] Devin SureshUrobilinogen Qn (U)1.0 {Sheyla'U}/dLNormal0.2 - 1.0The [facility] CenterComment on above:Performed By: #### SAMANTHA LOCKER ####[facility] Nyrifptst[address] [place], [place] [address]r. Devin Suresh LACTATE/LACTIC ACIDon 88-88-1927Qfmgkza [Moles/Vol]0.9 mmol/LNormal0.4-1.9Premier HealthComment on above:Performed By: #### LACT ####[facility] Vfrxybfthh[address] [place], [place] [address]Dr. Devin SureshPOINT OF CARE GLUCOSEon 36-76-8925Jxaorif [Mass/Vol]346 mg/dLCritically mmez46-314Bvs [facility] CenterComment on above:Performed By: #### POCGLUC ####[facility] Wqjgdfdbww[address] [place], [place] [address]Dr. Devin SureshGlucose [Mass/Vol]272 mg/dLCritically wxrr13-939Gbq [facility] CenterComment on above: Performed By: #### POCGLUC ####[facility] [address]vw[address]ahvw[address] [place] [address]Dr. Yilan ChangPROF 14(COMP METB)on 21-09-2767Yuobcvp [Mass/Vol]3.3 g/dLCritically low3.4-5.0The [facility] CenterComment on above: Performed By: #### CMP, VALP, HSTROPN ####[facility] Uadomvlmxf67[address] [place] [address]Dr. Yilan ChangAlbumin/Globulin [Mass ratio]0.9 {ratio}NormalThe [facility] CenterComment on above:Performed By: #### CMP, VALP, HSTROPN ####[facility] Lqvukfzfxp[address] [place], [place] [address]Dr. Yilan ChangALP [Catalytic activity/Vol]130 U/LCritically banb23-629Cfj [facility] CenterComment on above:Performed By: #### CMP, VALP, HSTROPN ####[facility] Hmeyojsspp[address] [place], [place] [address]Dr. Yilan ChangALT [Catalytic activity/Vol]22 U/YLldone60-15Bfm [facility] Comment on above:Performed By: #### CMP, VALP, HSTROPN ####[facility] Wsvzpjpwmc[address] [place], [place] [address]Dr. Yilan ChangAnion gap [Moles/Vol]10.9 mmol/LNormalThe [facility] CenterComment on above:Performed By: #### CMP, VALP, HSTROPN ####[facility] Aidzakqgtr[address] [place], [place] [address]Dr. Yilan ChangAST [Catalytic activity/Vol]11 U/L Critically zos87-27Pwl [facility] CenterComment on above:Performed By: #### CMP, VALP, HSTROPN ####[facility] Wyvqvdfyln[address] [place], [place] [address]Dr. Yilan ChangBilirubin [Mass/Vol]0.9 mg/dLNormal0.2-1.0The [facility] CenterComment on above:Performed By: #### CMP, VALP, HSTROPN ####[facility] Nmrfewtbsr65[address] [place] [address]Dr. Devin Suresh Calcium [Mass/Vol]8.7 mg/dLNormal8.5-10.1The [facility] CenterComment on above: Performed By: #### CMP, VALP, HSTROPN ####[facility] Vmlfbfazvs6[address] [place] [address]Dr. Yilan ChangChloride [Moles/Vol]100 mmol/L Txboeo37-966Xbf [facility] CenterComascension stand[facility] on above:Performed By: #### CMP, VALP, HSTROPN ####[facility] Femakegfiu[address] [place], [place] [address]Dr. Yilan ChangCO2 [Moles/Vol]29.4 mmol/PStrhai91.0-32.0The [facility] CenterComascension standish hospital on above:Performed By: #### CMP, VALP, HSTROPN ####[facility] Zteercmllb[address] [place], [place] [address]Dr. Yilan Suresh Creatinine [Mass/Vol]0.87 mg/dLNormal0.55-1.02The [facility] on above:Performed By: #### CMP, VALP, HSTROPN ####[facility] Lidwwwhsrd7[address] [place], [place] [address]Dr. Yilan ChangEGFR-AF CONGOLESE>60Normal >=60The [facility] on above:Performed By: #### CMP, VALP, HSTROPN ####[facility] Izzasixjow[address] [place], [place] [address]Dr. Yilan ChangEGFR-NON AF CONGOLESE>60Normal>=60The [facility] on above:Performed By: #### CMP, VALP, HSTROPN ####[facility] Lhehputirk[address] [place], [place] [address]Dr. Yilan ChangGlobulin (S) [Mass/Vol]3.8 g/dLNormalThe [facility] CenterComasc[facility] stand[facility] hospital on above:Performed By: #### CMP, VALP, HSTROPN ####[facility] Jsninkhxlw[address] [place], [place] [address]Dr. Yilan ChangGlucose [Mass/Vol]282 mg/dLCritically txmp95-690Dkn [facility] CenterComment on above:Performed By: #### CMP, VALP, HSTROPN ####[facility] S[address]xjkhcoec[address] [place] [address]Dr. Devin Suresh Potassium [Moles/Vol]3.3 mmol/LCritically low3.5-5.1The [facility] CenterComment on above:Performed By: #### CMP, VALP, HSTROPN ####[facility] Sthcsninla[address] [place] [address]Dr. Devin SureshProtein [Mass/Vol]7.1 g/dLNormal6.4-8.2The [facility] CenterComment on above:Performed By: #### CMP, VALP, HSTROPN ####[facility] Qrgqwkyxuh[address] [place] [address]Dr. Devin SureshSodium [Moles/Vol]137 mmol/LNormal 136-145The [facility] CenterComment on above:Performed By: #### CMP, VALP, HSTROPN ####[facility] Lgtehxgcaz8[address] [place] [address]Dr. Devin ChangUrea nitrogen [Mass/Vol]14.0 mg/dLNormal7.0-18.0The [facility] CenterComascension standish hospital on above:Performed By: #### CMP, VALP, HSTROPN ####[facility] Banbzzxxaz[address] [place] [address]Dr. Tishlan ChangUrea nitrogen/Creatinine [Mass ratio]16.1 mg/mgNormalThe [facility] CenterComascension stand[facility] hospital on above:Performed By: #### CMP, VALP, HSTROPN ####[facility] Prkgfisoiu[address] [place] [address]Dr. Devin ChangTROPONIN, HIGH SENSITIVITYon 33-56-9099OERYKU89.4 pg/mLNormal4.0-51.3The [facility] CenterComment on above: Result Comment: CUT-OFF POINTS HAVE BEEN ESTABLISHED BASED ON THE FOURTH UNIVERSAL DEFINITIONS OF MYOCARDIALINFARCTION. THE UPPER REFERENCE LIMIT (URL) OF TROPONIN, DEFINED THE 99TH PERCENTILE OFcTnI DISTRIBUTION IN A REFERENCE POPULATION, HAS BEEN CONFIRMED THE DECISION THRESHOLDFOR SD DIAGNOSIS. Performed By: #### CMP, VALP, HSTROPN ####[facility] Tseunansrl[address] [place] [id number]. Devin ChangURINE MICROSCOPIC ONLYon 30-71-2430UKQKVHZOCWCDVLNCMlxaeiebUWMF SEENPremier HealthComment on above:Performed By: #### CHUCKY, ERUR ####[facility] Zfgubmratg[address] [place], [place] [address]Dr. Devin ChangBacteria identified Cx Nom (U) INDICATEDNoalThMartins Ferry HospitalComascension standish hospital on above:Performed By: #### CHUCKY, ERUR ####[facility] Ixsyjqvjrf39[address] [place] [address]Dr. Devin ChangCASTNONE SEENNormalNONE SEENPremier HealthComascension standish hospital on above: Performed By: #### CHUCKY, ERUR ####[facility] Owljcbjnms[address] [place], [place] [address]Dr. Devin ChangCrystals LM Nom (Urine sed)SEENAbnormal NONE SEENThe [facility] CenterComascension stand[facility] hospital on above:Performed By: #### CHUCKY ERUR ####[facility] Neoagmoizn26[address] [place] [address]Dr. Devni ChangEpithelial cells LM Ql (Urine sed)FEWAbnormalNONE SEEN /RAREThe [facility] CenterComascension stand[facility] hospital on above:Performed By: #### CHUCKY, ERUR ####[facility] Rwazzjvsgs[address] [place] [address]Dr. Devin ChangMUCOUS NONE SEENNormalNONE SEENPremier HealthComascension standish hospital on above:Performed By: #### CHUCKY, ERUR ####[facility] Pyiztfcdlq5[address] [place] [address]Dr. Devin NtwopDPE9-4Pmkpkgct1-9Tnr [facility] CenterComment on above: Performed By: #### CHUCKY, ERUR ####[facility] Udilakdhue[address] [place], [place]Dr. Devin SureshWBC (U) [#/Vol]/uLAbnormalNONE [facility] HospitalComment on above:Performed By: #### MERCEDEZ LOCKE ####[facility] Ppufyefzpr8475 [place], [place]Dr. Devin SureshXR CHEST 1 Von 60-99-5851LM CHEST 1 [facility] HospitalCT HEAD WO CONon 01-43-4861CC HEAD WO CONNMercy Health Springfield Regional Medical CenterCHEMISTRYOrdered By: Lab ROPUser on 33-68-2889Dxcerpy [Mass/Vol]66 mg/dANafqua28 - 99 mg/dLFTMC POC SubsectionComment on above:Result Comment: Notified RN/MDPOC Device SN [id number] Interpretation CodeFTMC POC SubsectionPOC User [id number] Invalid Interpretation CodeFTMC POC SubsectionPOC UsernamLAURA Calderon Invalid Interpretation CodeFTMC POC SubsectionCHEMISTRYOrdered By: SYSTEM SYSTEM on 89-60-8071Brmxdbn [Mass/Vol]3.7 g/dLNormal3.3 - 5.0 gm/dLFTMC Remisol Albumin/Globulin [Mass ratio]1.2 {ratio}Normal1.1 - 2.2[facility] RemisolALP [Catalytic activity/Vol]76 [iU]/iDtbybn06 - 98 Int._Unit/LFTMC RemisolALT No additional P-5'-P [Catalytic activity/Vol]13 [iU]/dNormal6 - 46 Int._Unit/LFTMC RemisolAnion gap [Moles/Vol]12 mmol/LNormal6 - 16 mEq/LFTMC RemisolAST [Catalytic activity/Vol]15 [iU]/dNormal5 - 43 Int._Unit/LFTMC RemisolBilirubin [Mass/Vol]0.5 mg/dLNormal0.0 - 1.1 mg/dLFTMC RemisolBilirubin.direct [Mass/Vol] 0.1 mg/dLNormal0.1 - 0.4 mg/dLFTMC RemisolBilirubin.indirect [Mass or moles/Vol] 0.4 mg/dLNormal0.1 - 0.9 mg/dLFTMC RemisolCalcium [Mass/Vol]9.0 mg/dLNormal8.9 - 11.1 mg/dLFTMC RemisolChloride [Moles/Vol]105 mmol/XYaqwpm772 - 111 mmol/LFTMC RemisolCO2 [Moles/Vol]25 mmol/NOnpnmc80 - 31 mmol/LFTMC RemisolCreatinine [Mass/Vol]0.7 mg/dLNormal0.5 - 1.3 mg/dLFTMC RemisolGFR/1.73 sq M.predicted among blacks MDRD (S/P/Bld) [Vol rate/Area]mL/min/1.73 f9Ycrlip>=59mL/min/1.73 m2FT[facility] Chem SGFR/1.73 sq M.predicted among non-blacks MDRD (S/P/Bld) [Vol rate/Area]mL/min/1.73 t0Jxpgqz>=59mL/min/1.73 m2FT Chem SGlobulin (S) [Mass/Vol]3.1 g/dLNormal1.4 - 4.0 gm/dLFTMC RemisolGlucose [Mass/Vol]81 mg/dL Unwqns26 - 199 mg/dLFTMC RemisolLipase [Catalytic activity/Vol]29 U/TKanvqu73 - 58 unit/LFTMC RemisolPotassium [Moles/Vol]3.0 mmol/LLow3.5 - 5.3 mmol/LFTMC RemisolProtein [Mass/Vol]6.8 g/dLNormal6.0 - 7.8 gm/dLFTMC RemisolSodium [Moles/Vol]139 mmol/IBxrswf118 - 145 mmol/LFTMC RemisolUrea nitrogen [Mass/Vol] 12 mg/dLNormal5 - 21 mg/dLFTMC RemisolUrea nitrogen/Creatinine [Mass ratio]17 mg/tfUitika63 - 20FT[facility] RemisolHEMATOLOGYOrdered By: SYSTEM SYSTEM on 01-24-2022 Basophils/100 WBC (Bld)1.0 %Normal0.0 - 2.0 %[facility] HemeAutoSSBasophils/Leukocytes Auto (Bld) [Pure # fraction]0.1 E9/LNormal0.0 - 0.2 E9/LFTMC HemeAutoSS Eosinophils/100 WBC (Bld)1.4 %Normal0.0 - 8.0 %[facility] HemeAutoSS Eosinophils/Leukocytes Auto (Bld) [Pure # fraction]0.1 E9/LNormal0.0 - 0.5 E9/L [facility] HemeAutoSSLymphocytes/100 WBC (Bld)24.9 %Jubfcu11.0 - 50.0 %[facility] HemeAutoSS Lymphocytes/Leukocytes Auto (Bld) [Pure # fraction]2.2 E9/LNormal1.0 - 4.0 E9/L [facility] HemeAutoSSMonocytes/100 WBC (Bld)4.6 %Normal4.0 - 14.0 %[facility] HemeAutoSS Monocytes/Leukocytes Auto (Bld) [Pure # fraction]0.4 E9/LNormal0.2 - 1.0 E9/L [facility] HemeAutoSSNeutrophils/100 WBC (Bld)68.1 %Pvhatd17.0 - 75.0 %[facility] HemeAutoSS Neutrophils/Leukocytes Auto (Bld) [Pure # fraction]6.1 E9/LNormal2.0 - 7.5 E9/L [facility] HemeAutoSSHEMATOLOGYOrdered By: Mansi Cortez on 12-09-6493Figkddnyjoc distribution width (RBC) [Ratio]13.1 %Azvxlt67.9 - 14.2 %[facility] HemeAutoSS Hematocrit (Bld) [Volume fraction]38.2 %Jbtzxh48.0 - 46.0 %[facility] HemeAutoSS Hemoglobin (Bld) [Mass/Vol]13.3 g/sHMrwpgg78.0 - 16.0 gm/dLFTMC HemeAutoSSMCH (RBC) [Entitic mass]30.6 jkDupeyj04.0 - 34.0 pgFTMC HemeAutoSSMCHC (RBC) [Mass/Vol]34.8 g/iGEpswji14.4 - 36.0 gm/dLFTMC HemeAutoSSMCV (RBC) [Entitic vol] 87.8 aOUskblq61.0 - 100.0 fLFTMC HemeAutoSSPlatelet mean volume (Bld) [Entitic vol]6.8 fLNormal6.4 - 10.8 fLPOST [facility] [place] HemeAutoSSPlatelets (Bld) [#/Vol]362.0 E9/L Zqapjg757.0 - 500.0 E9/LFWEATHERFORD [facility] [place] HemeAutoSSRBC (Bld) [#/Vol]4.4 E12/LNormal4.3 - 5.9 E12/[facility] HemeAutoSSWBC corrected for nucl RBC Auto (Bld) [#/Vol]9.0 E9/LNormal 4.0 - 11.0 E9/[facility] HemeAutoSSSEROLOGYOrdered By: Lawrence Natarajan on 67-14-8013Tcuy hCG QlNegative (01/24/22 11:10 AM)NormalPOST [facility] [place] Man SeroURINALYSISOrdered By: Lawrence Natarajan on 85-69-2182Sleehadp LM Ql (Urine sed)Trace /HPFNormalTrace/HPFPOST [facility] [place] UA Auto SS Bilirubin Ql (U)Negative (01/24/22 12:40 PM)NormalNegativePOST [facility] [place]A Auto SSClarity (U)Clear (01/24/22 12:40 PM)NormalClearFWEATHERFORD REGIONAL [facility] [place] UA Auto SSColor (U)Yellow (01/24/22 12:40 PM)NormalYellowPOST [facility] [place]A Auto SSEpithelial cells.squamous LM.HPF (Urine sed) [#/Area]5-8 /HPFNormal0-2/HPFPOST [facility] [place]A Auto SSGlucose Test strip (U) [Mass/Vol]Negative (01/24/22 12:40 PM)NormalNegativePOST [facility] [place]A Auto SSHemoglobin Ql (U)Negative (01/24/22 12:40 PM)NormalNegativePOST [facility] [place] [facility] Auto SSKetones (U) [Mass/Vol]Negative (01/24/22 12:40 PM)NormalNegativePOST [facility] [place] UA Auto SSLithium.plasma/[place].RBC (Bld) [Mass ratio]0-3 /HPFNormal0-3/HPFPOST [facility] [place] Auto SSNitrite Ql (U)Negative (01/24/22 12:40 PM)NormalNegativePOST [facility] [place] [facility] Auto SSpH (U)6.0 *NA* (01/24/22 12:40 PM)Invalid Interpretation Code5.0 - 9.0[facility] [place]A Auto SSProtein (U) [Mass/Vol]Trace *ABN* (01/24/22 12:40 PM)Invalid Interpretation CodeNegativePOST [facility] [place] Auto SSSpecific gravity (U) [Rel density]1.010 *NA* (01/24/22 12:40 PM)Invalid Interpretation Code1.005 - 1.030[facility] [place] Auto SSUA Spec DescClean Catch (01/24/22 12:40 PM)NormalPOST [facility] [place] Auto SSUrobilinogen Qn (U)0.4533017 {Sheyla'U}/dLNormal0.0 - 1.0 EU/dLPOST [facility] [place]A Auto SSWBC Auto Ql (U)Negative (01/24/22 12:40 PM)NormalNegativePOST [facility] [place] Auto SSWBC LM.HPF (Urine sed) [#/Area]0-5 /HPFNormal0-5/HPFPOST [facility] [place] Auto SSCHEMISTRYOrdered By: SYSTEM SYSTEM on 45-69-5865Wmuuvdco I.cardiac [Mass/Vol]4.80 pg/mLLow10.10 - 27.10 pg/mLFT RemisolTroponin I.cardiac [Mass/Vol]4.40 pg/mLLow10.10 - 27.10 pg/mLPOST [facility] [place] Remisol Albumin [Mass/Vol]3.3 g/dLNormal3.3 - 5.0 gm/dLPOST [facility] [place] RemisolAlbumin/Globulin [Mass ratio]1.1 {ratio}Normal1.1 - 2.2[facility] RemisolALP [Catalytic activity/Vol]75 [iU]/cQzragl82 - 98 Int._Unit/LFT[facility] RemisolALT No additional P-5'-P [Catalytic activity/Vol]13 [iU]/dNormal6 - 46 Int._Unit/LFT[facility] RemisolAnion gap [Moles/Vol] 12 mmol/LNormal6 - 16 mEq/LFT[facility] RemisolAST [Catalytic activity/Vol]14 [iU]/d Normal5 - 43 Int._Unit/LFT[facility] RemisolBilirubin [Mass/Vol]0.3 mg/dLNormal0.0 - 1.1 mg/dLMC RemisolBilirubin.direct [Mass/Vol]0.1 mg/dLNormal0.1 - 0.4 mg/dLFTMC RemisolBilirubin.indirect [Mass or moles/Vol]0.2 mg/dLNormal0.1 - 0.9 mg/dLFT[facility] RemisolCalcium [Mass/Vol]8.7 mg/dLLow8.9 - 11.1 mg/dLFT[facility] RemisolChloride [Moles/Vol]104 mmol/MEpnqho478 - 111 mmol/LFT[facility] RemisolCO2 [Moles/Vol]27 mmol/L Grjvod00 - 31 mmol/LFTMC RemisolCreatinine [Mass/Vol]0.8 mg/dLNormal0.5 - 1.3 mg/dLFTMC RemisolGFR/1.73 sq M.predicted among blacks MDRD (S/P/Bld) [Vol rate/Area]mL/min/1.73 c5Ckbdfz>=59mL/min/1.73 m2[facility] Chem SGFR/1.73 sq M.predicted among non-blacks MDRD (S/P/Bld) [Vol rate/Area]mL/min/1.73 e4Fuwkux >=59mL/min/1.73 m2[facility] Chem SGlobulin (S) [Mass/Vol]2.9 g/dLNormal1.4 - 4.0 gm/dLFT[facility] RemisolGlucose [Mass/Vol]137 mg/sUQrxjkp20 - 199 mg/dLFT[facility] Remisol Magnesium [Mass/Vol]1.2 mg/dLLow1.3 - 2.4 mg/dLFT[facility] RemisolPotassium [Moles/Vol] 3.5 mmol/LNormal3.5 - 5.3 mmol/LFTMC RemisolProtein [Mass/Vol]6.2 g/dLNormal6.0 - 7.8 gm/dLFT[facility] RemisolSodium [Moles/Vol]139 mmol/KWotnwz857 - 145 mmol/LFTMC RemisolTroponin I.cardiac [Mass/Vol]5.40 pg/mLLow10.10 - 27.10 pg/mLFTMC Remisol Urea nitrogen [Mass/Vol]13 mg/dLNormal5 - 21 mg/dLFT[facility] RemisolUrea nitrogen/Creatinine [Mass ratio]16 mg/jfIwjner19 - 20FT RemisolCHEMISTRY Ordered By: Lab ROPUser on [id number] [Mass/Vol]178 mg/cCZrbg89 - 99 mg/dL[facility] [place] [place] SubsectionPOC Device [id number] Interpretation Code[facility] [place] SubsectionPOC User [id number] Interpretation Code[facility] [place] SubsectionPOC [email or web address], ASHLEYInvalid Interpretation Code[facility] [facility] SubsectionCHEMISTRYOrdered By: Shannen Sosa on 20-54-9870Ymzspgwcwzy peptide B (Bld) [Mass/Vol]17 pg/mLNormal5 - 80 pg/mLFTMC HemeManSSCOAGULATIONOrdered By: Karen Murphy on 69-73-5186bXHJ Coag (PPP) [Time]36.7 sHigh25.1 - 36.5 second(s)[facility] Auto CoagFibrin D-dimer FEU (PPP) [Mass/Vol]494 ng/mL CYCDlhurw963 - 500 ng/mL FEUFC Auto CoagINR Coag (PPP) [Relative time]1.0 {INR}Invalid Interpretation CodePOST [facility] [place] Auto CoagPT Coag (PPP) [Time]10.5 sNormal9.4 - 12.5 second(s)[facility] Auto CoagHEMATOLOGYOrdered By: SYSTEM SYSTEM on 01-09-2022 Basophils/100 WBC (Bld)0.5 %Normal0.0 - 2.0 %[facility] HemeAutoSSBasophils/Leukocytes Auto (Bld) [Pure # fraction]0.0 E9/LNormal0.0 - 0.2 E9/LFTMC HemeAutoSS Eosinophils/100 WBC (Bld)1.9 %Normal0.0 - 8.0 %[facility] HemeAutoSS Eosinophils/Leukocytes Auto (Bld) [Pure # fraction]0.1 E9/LNormal0.0 - 0.5 E9/L [facility] HemeAutoSSLymphocytes/100 WBC (Bld)25.4 %Xtbtxu57.0 - 50.0 %[facility] HemeAutoSS Lymphocytes/Leukocytes Auto (Bld) [Pure # fraction]1.8 E9/LNormal1.0 - 4.0 E9/L [facility] HemeAutoSSMonocytes/100 WBC (Bld)6.2 %Normal4.0 - 14.0 %[facility] HemeAutoSS Monocytes/Leukocytes Auto (Bld) [Pure # fraction]0.4 E9/LNormal0.2 - 1.0 E9/L [facility] HemeAutoSSNeutrophils/100 WBC (Bld)66.0 %Yeflxe98.0 - 75.0 %[facility] HemeAutoSS Neutrophils/Leukocytes Auto (Bld) [Pure # fraction]4.6 E9/LNormal2.0 - 7.5 E9/L [facility] HemeAutoSSHEMATOLOGYOrdered By: Shannen Sosa on 45-90-9710Rbtmgefsctl distribution width (RBC) [Ratio]13.3 %Xzahzj51.9 - 14.2 %[facility] HemeAutoSS Hematocrit (Bld) [Volume fraction]38.6 %Atwodi17.0 - 46.0 %[facility] HemeAutoSS Hemoglobin (Bld) [Mass/Vol]13.0 g/yRIzzgyu04.0 - 16.0 gm/dLFTMC HemeAutoSSMCH (RBC) [Entitic mass]29.7 znHakbka46.0 - 34.0 pgFTMC HemeAutoSSMCHC (RBC) [Mass/Vol]33.7 g/nKAhujbc49.4 - 36.0 gm/dLFTMC HemeAutoSSMCV (RBC) [Entitic vol] 88.2 qMMgekbw27.0 - 100.0 fLFTMC HemeAutoSSPlatelet mean volume (Bld) [Entitic vol]7.6 fLNormal6.4 - 10.8 fLFTMC HemeAutoSSPlatelets (Bld) [#/Vol]278.0 E9/L Oukyfj439.0 - 500.0 E9/L[facility] HemeAutoSSRBC (Bld) [#/Vol]4.4 E12/LNormal4.3 - 5.9 E12/LFT[facility] HemeAutoSSWBC corrected for nucl RBC Auto (Bld) [#/Vol]6.9 E9/LNormal 4.0 - 11.0 E9/L[facility] HemeAutoSSURINALYSISOrdered By: Karen Murphy on 39-94-9398Couhytmp LM Ql (Urine sed)Trace /HPFNormalTrace/HPFPOST [facility] Auto SS Bilirubin Ql (U)Negative (01/09/22 1:58 PM)NormalNegativePOST [facility] Auto SSClarity (U)Slightly Cloudy *ABN* (01/09/22 1:58 PM)Invalid Interpretation CodeClearFWEATHERFORD [facility] [place] [facility] Auto SSColor (U)Yellow (01/09/22 1:58 PM)NormalYellowPOST [facility] Auto SSEpithelial cells.squamous LM.HPF (Urine sed) [#/Area]5-8 /HPFNormal0-2/HPFPOST [facility]UTE [facility] [place] Auto SSGlucose Test strip (U) [Mass/Vol]1+ *ABN* (01/09/22 1:58 PM)Invalid Interpretation CodeNegativePOST [facility] [place] Auto SSHemoglobin Ql (U)Negative (01/09/22 1:58 PM)NormalNegativePOST [facility] Auto SSKetones (U) [Mass/Vol]Negative (01/09/22 1:58 PM)NormalNegativePOST [facility] Auto SSLithium.plasma/[place].RBC (Bld) [Mass ratio]0-3 /HPFNormal0-3/HPFPOST [facility]UTE [facility] [place] [facility] Auto SSMucus Ql (Urine sed)Trace (01/09/22 1:58 PM)NormalPOST [facility] [place] Auto SSNitrite Ql (U)Negative (01/09/22 1:58 PM)NormalNegativePOST [facility] Auto SSpH (U)6.0 *NA* (01/09/22 1:58 PM)Invalid Interpretation Code5.0 - 9.0[facility] Auto SSProtein (U) [Mass/Vol]Negative (01/09/22 1:58 PM)NormalNegativePOST [facility] [place] Auto SSSpecific gravity (U) [Rel density] >=1.030 *NA* (01/09/22 1:58 PM)Invalid Interpretation Code1.005 - 1.030[facility] Auto SSUA Spec DescClean Catch (01/09/22 1:58 PM)NormalPOST [facility] [place] [facility] Auto SSUrobilinogen Qn (U)0.2438033 {Sheyla'U}/dLNormal0.0 - 1.0 EU/dLPOST [facility] [place] [facility] Auto SSWBC Auto Ql (U)Negative (8/18/22 1:58 PM)NormalNegativePOST [facility] [place] Auto SSWBC LM.HPF (Urine sed) [#/Area]0-5 /HPFNormal0-5/HPFFT UA Auto SSCULTURE URINEon 79-56-3200APFPXEU URINENormal The [facility] CenterComment on above:Performed By: #### URCX ####[facility] [address] [place] [address]Dr. Devin Suresh CARDIAC LAURA 3-6on 14-31-9638IH [Catalytic activity/Vol]38 U/HJkfavt47-094Qwe [facility] CenterComment on above:Performed By: #### CMREP ####[facility] Ondgzswyqp[address] [place], [place] [address]Dr. Devin SureshCK.MB [Mass/Vol]0.86 ng/mLNormal<=3.60The [facility] CenterComment on above:Performed By: #### CMREP ####[facility] Irngzddywi[address] [place], [place] [address]Dr. Devin SureshHSTROP7.8 pg/mLNormal4.0-51.3The [facility] Comment on above:Result Comment: CUT-OFF POINTS HAVE BEEN ESTABLISHED BASED ON THE FOURTH UNIVERSAL DEFINITIONS OF MYOCARDIALINFARCTION. THE UPPER REFERENCE LIMIT (URL) OF TROPONIN, DEFINED THE 99TH PERCENTILE OFcTnI DISTRIBUTION IN A REFERENCE POPULATION, HAS BEEN CONFIRMED THE DECISION THRESHOLDFOR SD DIAGNO SIS.Performed By: #### CMREP ####[facility] Xcedkckehl[address] [place], [place] [address]Dr. Devin ChangCT ABD/PELVIS WO CONon 47-37-2572GB ABD/PELVIS WO CONNMercy Health Springfield Regional Medical CenterCT HEAD WO CONon 42-03-3491MO HEAD WO CONNMercy Health Springfield Regional Medical CenterER URINE PROFILEon 85-87-1857Mmokxhrxj Ql (U) SMALLAbnormalNEGATIVEPremier HealthComment on above:Performed By: #### MERCEDEZ LOCKE ####[facility] Mfvgjwgglb[address] [place], [place] [address]Dr. Devin ChangClarity (U)CLEARNormalCLEARPremier HealthComment on above:Performed By: #### SAMANTHA LOCKER ####[facility] Sryoqdrspi[address] [place], [place]Dr. Yilan ChangColor (U)YELLOWNormalYELLOWPremier HealthComment on above:Performed By: #### SAMANTHA LOCKER ####[facility] Oarfqdflik[address] [place], [place]Dr. Yilan ClarenceRUAHD A micrscopic examination will be performed if indicated.NormalThe Hinckley HospitalComment on above:Performed By: #### SAMANTHA LOCKER ####[facility] Snpgrnhxup[address] [place], [place]Dr. Tishlan ChangGlucose Ql (U) >1000AbnormalNEGATIVEPremier HealthComment on above:Performed By: #### SAMANTHA LOCKER ####[facility] Sfrphaaomc[address] [place], [place] [address]Mh. Tishlan ChangHemoglobin Ql (U)SMALLAbnormalNEGUniversity Hospitals Samaritan Medical Center Comment on above:Performed By: #### SAMANTHA LOCKER ####[facility] [address]ur[address] [place] [id number]. Tishlan ChangKetones Ql (U) 15 mg/dlAbnormalNEGATIVEPremier HealthComment on above:Performed By: #### SAMANTHA LOCKER ####[facility] C[address]xc[address]ig[address] [place] [id number]. Tishlan ChangLEUKOCYTESSMALLAbnormalNEGUniversity Hospitals [facility]aritan Medical Center Comment on above:Performed By: #### SAMANTHA LOCKER ####[facility] Qtxdtrnrfo[address] [place] [id number]. Tishlan ChangNitrite Ql (U) PositiveAbnormalNEGATIVEPremier HealthComment on above:Performed By: #### CHUCKY ERUR ####[facility] Mcwhuiymts[address] [place] [id number]. Tishlan ChangpH (U)5.0 [pH]Normal5-9The [facility]ckley HospitalComment on above:Performed By: #### SAMANTHA LOCKER ####[facility] Plpncakwym[address]18 [address] Devin ChangProtein (U) [Mass/Vol]100 mg/dL AbnormalNEGATIVE/ TRACEThe Hinckley HospitalComment on above:Performed By: #### SAMANTHA LOCKER ####[facility] [address]vcv[address] [place] [address]Dr. Yiemily ChangSPEC GRAVITY>=1.944Lrqakgjm2.005-<=1.025The [facility] CenterComment on above:Performed By: #### SAMANTHA LOCKER ####[facility] Pogtqxqzph[address]76 [address] Devin SureshUR MICRO IND INDICATEDNormalThe [facility] CenterComment on above:Performed By: #### SAMANTHA LOCKER ####[facility] Oyhqxjx[address] [place], [place] [address]r. Devin ChangUrobilinogen Qn (U)0.2 {Sheyla'U}/dLNormal0.2 - 1.0The [facility] CenterComment on above:Performed By: #### MERCEDEZ LOCKE ####[facility] Wtklhotrky[address] [place], [place] [address]r. Devin ChangLACTATE/LACTIC ACIDon 41-19-7550Zragijv [Moles/Vol]1.1 mmol/LNormal0.4-1.9The [facility] Comment on above:Performed By: #### LACT ####[facility] Mwbemkblxx[address] [place], [place] [address]Dr. Devin SureshURINE MICROSCOPIC ONLYon 90-78-5607VZTXXJWIHKUWTImfryjwrDCLJ SEENThe [facility] CenterComment on above: Performed By: #### SAMANTHA LOCKER ####[facility] Iaesfvwpts[address] [place], [place] [address]r. Devin ChangBacteria identified Cx Nom (U)INDICATED NormalThe [facility] CenterComment on above:Performed By: #### MERCEDEZ LOCKE ####[facility] Slxhfcwbnh[address] [place], [place]Dr. Devin ChangCASTNONE SEENNormalNONE SEENPremier HealthComascension standish hospital on above: Performed By: #### CHUCKY ERUR ####[facility] Nicaqibmyq64[address] [place], [place]Dr. Devin SureshCrystals LM Nom (Urine sed)NONE SEEN NormalNONE SEENThe [facility] CenterComascension standish hospital on above:Performed By: #### CHUCKY, ERUR ####[facility] Nypepqxrho[address] [place], [place]Dr. Devin ChangEpithelial cells LM Ql (Urine sed)FEWAbnormalNONE SEEN /RAREThe [facility] CenterComascension standish hospital on above:Performed By: #### CHUCKY ERUR ####[facility] [address]bmqlpy[address] [place] [id number]. Devin SureshMUCOUS NONE SEENNormalNONE SEENPremier HealthComascension standish hospital on above:Performed By: #### CHUCKY ERUR ####[facility] [address]ikffdrxh[address] [place] [id number]. Devin SureshOxzkrCIE2-8Gsjjwj5-3Hxh [facility] CenterComascension standish hospital on above: Performed By: #### CHUCKY ERUR ####[facility] Yuyputqagz[address] [place] [id number]. Devin SureshWBC5-10AbnormalNONE SEENPremier HealthComascension standish hospital on above:Performed By: #### CHUCKY ERUR ####[facility] Nmzrsiiqqf64[address] [place], [place]Dr. Devin SureshXR CHEST 1 Von 57-39-7744WR CHEST 1 VNormalThe [facility] Medical CenterCARDIAC LAURA ADMITon 01-01-2022 CK [Catalytic activity/Vol]40 U/LZmyvxq41-985R[facility] on above:Performed By: #### BMP, CMADM ####[facility] Czzsmewzfz[address] [place], [place] [address]Lw. Devin Walden.MB [Mass/Vol]0.95 ng/mLNormal <=3.60The [facility] CenterComment on above:Performed By: #### ALEXIA CMADM ####[facility] Eoetzlbjlj[address] [place], [place] [address]Dr. Yilan ChangHSTROP6.7 pg/mLNormal4.0-51.3The [facility] CenterComment on above: Result Comment: CUT-OFF POINTS HAVE BEEN ESTABLISHED BASED ON THE FOURTH UNIVERSAL DEFINITIONS OF MYOCARDIALINFARCTION. THE UPPER REFERENCE LIMIT (URL) OF TROPONIN, DEFINED THE 99TH PERCENTILE OFcTnI DISTRIBUTION IN A REFERENCE POPULATION, HAS BEEN CONFIRMED THE DECISION THRESHOLDFOR SD DIAGNOSIS. Performed By: #### TASNEEM HALEDM ####[facility] Osawtipkjo[address] [place], [place] [address]Dr. Yilan ChklbNDN21 ng/mLNormal9-82The [facility] CenterComment on above:Performed By: #### TASNEEM HALEDM ####[facility] Sbkfksocys[address] [place], [place] [address]Dr. Yilan ChangCBC AUTO DIFF on 63-93-9636WEWE #0.1 103/ulNormal0.0-0.1The [facility] CenterComment on above: Performed By: #### CBC ####[facility] Owdhqkvitu[address] [place], [place] [address]Dr.Yilan ChangBasophils/100 WBC (Bld)0.5 %Normal 0.2-2.0The [facility] CenterComment on above:Performed By: #### CBC ####[facility] Xgbdxiwgiz4[address] [place], [place] [address]Dr.Yilan ChangEO # 0.1 103/ulNormal0.0-0.7The [facility] CenterComment on above:Performed By: #### CBC ####[facility] Ydzsigoaxd[address] [place], [place] [address]Dr. Yilan ChangEosinophils/100 WBC (Bld)0.7 %Critically low0.9-7.0The [facility] CenterComment on above:Performed By: #### CBC ####[facility] Fibpgslspm[address] [place], [place] [address]Dr.Tishemily ChangErythrocyte distribution width (RBC) [Ratio]12.5 %Usgedb14.0-15.0The [facility] Comment on above:Performed By: #### CBC ####[facility] [address]neyo[address] [place] [address]Dr.Tishemily ChangHematocrit (Bld) [Volume fraction]43.0 %Zeqflm06.0-48.0The [facility]ckley HospitalComment on above:Performed By: #### CBC ####[facility] Julbqgrape[address] [place], [place] [address]Dr.Tishemily ChangHemoglobin (Bld) [Mass/Vol]15.2 g/mPEetwjg56.0-16.0The [facility] CenterComment on above:Performed By: #### CBC ####[facility] Hsnxcigawt[address] [place], [place] [address]Dr.Yilan ChangIG #0.05 10e3/ulCritically high0.00-0.03The [facility] CenterComment on above:Performed By: #### CBC ####[facility] Slbdjqkdbi[address] [place], [place] [address]Dr.Yiemily ChangIG %0.4 %Normal0.0-0.5The [facility] CenterComment on above: Performed By: #### CBC ####[facility] Ttiodewqvs[address] [place], [place] [address]Dr.Tishlan ChangLYMPH #2.0 103/ulNormal1.2-3.8The [facility] CenterComment on above:Performed By: #### CBC ####[facility] Ixigiymcgh39[address] [place], [place] [address]Dr.Yilan ChangLymphocytes/100 WBC (Bld)15.1 %Critically low20.5-60.0The [facility] CenterComment on above: Performed By: #### CBC ####[facility] Pltvsaipyy[address] [place], [place] [address]Dr.Tishlan ChangMANUAL DIFF REQNONormalThe [facility] CenterComment on above:Performed By: #### CBC ####[facility] Yrqvsqmvxb24[address] [place] [address]Dr.Devin KerwinH (RBC) [Entitic mass]30.2 wwHztxah85.7-34.0The [facility] CenterComment on above: Performed By: #### CBC ####[facility] [address]joqndxmsq[address] [place] [address]Dr.Devin KerwinHC (RBC) [Mass/Vol]35.3 g/dLCritically high29.9-35.2The [facility] CenterComment on above:Performed By: #### CBC ####[facility] Jmbcwxmfdg5[address] [place] [address]Dr. Devin SureshV (RBC) [Entitic vol]85.3 iETvgppq02.0-99.0The [facility] Comment on above:Performed By: #### CBC ####[facility] Dsutruetlm[address] [place], [place] [address]Dr.Devin SureshMONO #0.7 103/ulNormal0.3-0.8 The [facility] CenterComment on above:Performed By: #### CBC ####[facility] Tkxjgpmopq[address] [place], [place] [address]Dr.Devin Suresh Monocytes/100 WBC (Bld)5.6 %Normal1.7-12.0The [facility] CenterComment on above: Performed By: #### CBC ####[facility] Qejtxulbol39[address] [place], [place] [address]Dr.Devin SureshNEUT #10.2 103/ulCritically high1.4-6.5 The [facility] CenterComment on above:Performed By: #### CBC ####[facility] Vcedhqaxxj[address] [place], [place] [address]Dr.Devin Suresh Neutrophils/100 WBC (Bld)77.7 %Critically high43.0-75.0The [facility] Comment on above:Performed By: #### CBC ####[facility] Fbloelecdr[address] [place], [place] [address]Dr.Devin SureshPlatelet mean volume (Bld) [Entitic vol]9.1 fLCritically low9.5-13.5The [facility] CenterComment on above: Performed By: #### CBC ####[facility] Efzdnhucrp[address] [place], [place] [address]Ze.Devin SureshPLT420 103/hyGsfbqc254-234Jst [facility] CenterComment on above:Performed By: #### CBC ####[facility] Ad[address]ryogox[address] [place] [address]Dr.Devin SureshRBC5.04 106/ul Normal4.20-5.40The [facility] CenterComment on above:Performed By: #### CBC ####[facility] Stpbqwnlmn3685 [place], [place] [address]Si. Devin SureshWBC13.1 103/ulCritically high4.0-11.0The [facility] CenterComment on above:Performed By: #### CBC ####[facility] [address]om[address] [place] [address]Dr.Devin SureshCovid-19 PCR (CVDTBH)on 01-01-2022 SARS-CoV-2 (COVID-19) RNA EBONIE+probe Ql (Unsp spec)Not detectedNormalNOT DETECTED [facility] on above:Result Comment: When diagnostic testing is negative, the possibility of a false negative should be considered inthe context of a patient's recent exposures and the presence of clinical signs and sympt omsconsistent with SARS-CoV-2.This test is not yet approved or cleared by the [place] FDA. When there are no FDA-approved or cleared tests available, and other criteria are met, FDA can make tests available under an emergency access mechanism called an Emergency Use Authorization (EUA). The EUA for this test is supported by the Electronic Scale Tester of Health and Human Service's declaration that circumstances exist to justify the emergency use of in vitro diagnostics for the detection and/or diagnosis of the virus that causes COVID-19. This EUA will remain in effect for the duration of the COVID-19declaration justifying emergency of IVDs, unless it is terminated or revoked by the FDA (after which the test may no longer be used).Performed By: #### CVDTBH ####[facility] [address]irm[address] [place] [address]Dr. Devin ChangD-DIMERon 02-32-9904M-DIMER0.36 mg/L FEUNormal<=0.59The [facility] on above: Performed By: #### DDIM ####[facility] Broqlrvnso[address] [place], [place] [address]Dr. Yilan ChangD-DIMER COMMENTSSEE BELOWNormalThMartins Ferry HospitalComascension standish hospital on above:Result Comment: Increases in D-Dimer concentration observed with thromboembolic events [...] DIC, trauma, post-surgery, diabetes, thrombolytic or anticoagulant the rapy, stress, and generalized hospitalization.Performed By: #### DDIM ####[facility] Mhrijjkoxs[address] [place], [place] [address]Dr. Yilan ChangLACTATE/LACTIC ACIDon 09-75-8633Ydfgivg [Moles/Vol]1.8 mmol/LNormal 0.4-1.9The [facility] on above:Performed By: #### LACT ####[facility] Bnrchzguzx[address] [place], [place] [address]Dr. Devin ChangPROF CHEM 8 (BAS METB)on 93-93-9273Xqnam gap [Moles/Vol]16.5 mmol/L NormalThe [facility] on above:Performed By: #### BMP, CMADM ####[facility] Iczbtuyfay[address] [place], [place] [address]Dr. Tishlan ChangCalcium [Mass/Vol]9.9 mg/dLNormal8.5-10.1The [facility] on above:Performed By: #### BMP, CMADM ####[facility] Wlihpdbolp[address] [place], [place] [address]Dr. Yilan ChangChloride [Moles/Vol]98 mmol/L Vvzgzl23-907Lfw [facility] HospitalComment on above:Performed By: #### ALEXIA, CMADM ####[facility] Eunomtexxw[address] [place], [place] [address]Dr. Yilan ChangCO2 [Moles/Vol]25.6 mmol/GGfrxxz71.0-32.0The [facility] CenterComment on above:Performed By: #### ALEXIA, CMADM ####[facility] Iajhtnlduu[address] [place], [place] [address]Dr. Yilan ChangCreatinine [Mass/Vol]1.18 mg/dLCritically high0.55-1.02The [facility] CenterComment on above:Performed By: #### ALEXIA, CMADM ####[facility] Ygpkyealrv[address] [place], [place] [address]Dr. Yilan ChangEGFR-AF HZZFMSKJ08 mL/min/1.51i1Fpurts>=60The [facility] CenterComment on above:Performed By: #### ALEXIA, CMADM ####[facility] Xycganarkr[address] [place], [place] [address]Dr. Yilan ChangEGFR-NON AF EJOEXXJD51 mL/min/1.05f0Sbfgmtiiof low>=60The [facility] CenterComment on above: Performed By: #### ALEXIA, CMADM ####[facility] Koeyaoitiq[address] [place], [place] [address]Dr. Yilan ChangGlucose [Mass/Vol]166 mg/dLCritically ihig34-817Pns [facility] CenterComment on above:Performed By: #### ALEXIA, CMADM ####[facility] [address]scjslarzf[address] [place], [place] [address]Dr. Yilan ChangPotassium [Moles/Vol]3.1 mmol/LCritically low3.5-5.1The [facility] CenterComment on above:Performed By: #### ALEXIA, CMADM ####[facility] Lrajelpfev[address] [place], [place] [address]Dr. Yilan ChangSodium [Moles/Vol]137 mmol/LOkwknn827-585Eob [facility] CenterComment on above: Performed By: #### ALEXIA, CMADM ####[facility] [address] [place] [address]Ps. Devin ChangUrea nitrogen [Mass/Vol]12.0 mg/dL Normal7.0-18.0The [facility] CenterComment on above:Performed By: #### ALEXIA, HOWARD ####[facility] Ahaswwsgix[address] [place], [place] [address]Dr. Devin ChangUrea nitrogen/Creatinine [Mass ratio]10.2 mg/mgNormalThe [facility] CenterComment on above:Performed By: #### ALEXIA, CMAJONNY ####[facility] [address]zpchmcjur[address] [place], [place] [address]Dt. Devin Suresh CHEMISTRYOrdered By: SYSTEM SYSTEM on 72-43-9490Qhvukpugwjiv Screen method >1000 ng/mL Ql (U)Negative (12/08/21 11:54 AM)NormalNegativePOST [facility] [place] RemisolBarbiturates Screen Ql (U)Negative (12/08/21 11:54 AM)NormalNegativeFTMC RemisolBenzodiazepines Ql (U)Negative (12/08/21 11:54 AM)NormalNegativeFTMC RemisolCocaine Ql (U)Negative (12/08/21 11:54 AM)NormalNegativeFTMC RemisolOpiates Screen Ql (U)Negative (12/08/21 11:54 AM)NormalNegativePOST [facility] RemisolPhencyclidine Screen method >25 ng/mL Ql (U)Negative (12/08/21 11:54 AM)NormalNegativeFTMC RemisolTetrahydrocannabinol Screen method >50 ng/mL Ql (U)Negative (12/08/21 11:54 AM)NormalNegativeFTMC RemisolAnion gap [Moles/Vol]13 mmol/LNormal 6 - 16 mEq/LFTMC RemisolCalcium [Mass/Vol]9.4 mg/dLNormal8.9 - 11.1 mg/dLFTMC RemisolChloride [Moles/Vol]103 mmol/QBhdvgr855 - 111 mmol/LFTMC RemisolCO2 [Moles/Vol]26 mmol/KNcyerh42 - 31 mmol/LFTMC RemisolCreatinine [Mass/Vol]0.9 mg/dLNormal0.5 - 1.3 mg/dLFTMC RemisolGFR/1.73 sq M.predicted among blacks MDRD (S/P/Bld) [Vol rate/Area]mL/min/1.73 f8Bauoos>=59mL/min/1.73 m2[facility] Chem S GFR/1.73 sq M.predicted among non-blacks MDRD (S/P/Bld) [Vol rate/Area] mL/min/1.73 v3Spfncs>=59mL/min/1.73 m2[facility] Chem SGlucose [Mass/Vol]236 mg/dLHigh 55 - 199 mg/dLFTMC RemisolMagnesium [Mass/Vol]1.4 mg/dLNormal1.3 - 2.4 mg/dLFT[facility] RemisolPotassium [Moles/Vol]3.8 mmol/LNormal3.5 - 5.3 mmol/LFTMC RemisolSodium [Moles/Vol]138 mmol/FMigtgt640 - 145 mmol/LFTMC RemisolUrea nitrogen [Mass/Vol] 16 mg/dLNormal5 - 21 mg/dLFT[facility] RemisolUrea nitrogen/Creatinine [Mass ratio]18 mg/atNhqsuv76 - 20[facility] RemisolHEMATOLOGYOrdered By: SYSTEM SYSTEM on 12-08-2021 Basophils/100 WBC (Bld)0.7 %Normal0.0 - 2.0 %[facility] HemeAutoSSBasophils/Leukocytes Auto (Bld) [Pure # fraction]0.1 E9/LNormal0.0 - 0.2 E9/LFTMC HemeAutoSS Eosinophils/100 WBC (Bld)2.6 %Normal0.0 - 8.0 %[facility] HemeAutoSS Eosinophils/Leukocytes Auto (Bld) [Pure # fraction]0.2 E9/LNormal0.0 - 0.5 E9/L [facility] HemeAutoSSLymphocytes/100 WBC (Bld)24.8 %Jjtgwb33.0 - 50.0 %[facility] HemeAutoSS Lymphocytes/Leukocytes Auto (Bld) [Pure # fraction]1.9 E9/LNormal1.0 - 4.0 E9/L [facility] HemeAutoSSMonocytes/100 WBC (Bld)6.9 %Normal4.0 - 14.0 %[facility] HemeAutoSS Monocytes/Leukocytes Auto (Bld) [Pure # fraction]0.5 E9/LNormal0.2 - 1.0 E9/L [facility] HemeAutoSSNeutrophils/100 WBC (Bld)65.0 %Thganq95.0 - 75.0 %[facility] HemeAutoSS Neutrophils/Leukocytes Auto (Bld) [Pure # fraction]5.0 E9/LNormal2.0 - 7.5 E9/L [facility] HemeAutoSSHEMATOLOGYOrdered By: Mansi Cortez on 31-40-6107Kteomtowvvu distribution width (RBC) [Ratio]12.6 %Yehuyv16.9 - 14.2 %[facility] HemeAutoSS Hematocrit (Bld) [Volume fraction]39.5 %Aarsxo45.0 - 46.0 %[facility] HemeAutoSS Hemoglobin (Bld) [Mass/Vol]13.7 g/fXVzoopi31.0 - 16.0 gm/dLFTMC HemeAutoSSMCH (RBC) [Entitic mass]30.5 loGxfujx53.0 - 34.0 pgFTMC HemeAutoSSMCHC (RBC) [Mass/Vol]34.7 g/hLDgdxzi45.4 - 36.0 gm/dLFTMC HemeAutoSSMCV (RBC) [Entitic vol] 87.7 nGKamgls61.0 - 100.0 fLFTMC HemeAutoSSPlatelet mean volume (Bld) [Entitic vol]7.3 fLNormal6.4 - 10.8 fLFTMC HemeAutoSSPlatelets (Bld) [#/Vol]306.0 E9/L Ucsczp501.0 - 500.0 E9/L[facility] HemeAutoSSRBC (Bld) [#/Vol]4.5 E12/LNormal4.3 - 5.9 E12/L[facility] HemeAutoSSWBC corrected for nucl RBC Auto (Bld) [#/Vol]7.7 E9/LNormal 4.0 - 11.0 E9/L[facility] HemeAutoSSMicroscopic Urinalysison 80-17-1302Ilzqbgua, UAFEW AbnormalNegative /HPFBON SECCOREY HOSPITALEpithelial Cells, UA3-5/HPFBON SECCOREY HOSPITALRBC, UA0-2B[facility] HOSPITALWBC, UA3-5[facility]No Panel Informationon 08-48-4081Hlqeglkhusyiks and review of laboratory resultsAbnormalBON [facility] Drug Screen Rapidon 65-71-7068Dkrk Screen Commentsee belowNoOhio Valley Surgical HospitalComment on above:Result Comment: This method is a screening test to detect only these drug classes as part of a medical workup. Confirmatory testing by another method should be ordered if clinically indicated.Performed By: #### UDSNC #### [facility] [address] [place] [address] VS Amphetamines Rapid ScreenNegativeNormalNegative <Parkwood HospitalComment on above:Result Comment: Effective: 12/07/17 Methodology and/or Reference Range-Cutoff has changed.Performed By: #### UDSNC #### [facility] [address] [place] [address] EE Barbiturates Rapid ScreenNegativeNormalNegative <[facility]wood HospitalComment on above:Result Comment: Effective: 12/07/17 Methodology and/or Reference Range-Cutoff has changed.Performed By: #### UDSNC #### [facility] [address] [place] [address] HV Benzo Rapid ScreenNegativeNormalNegative <[facility] Comment on above:Result Comment: Effective: 12/07/17 Methodology and/or Reference Range-Cutoff has changed.Performed By: #### UDSNC #### [facility] [address] [place] [address] UB Cannabinoids Rapid ScreenNegativeNormalNegative <[facility] HospitalComment on above:Performed By: #### UDSNC #### [facility] [address] [place] [address] MK Cocaine Rapid ScreenNegativeNormalNegative <[facility] Comment on above:Result Comment: Effective: 12/07/17 Methodology and/or Reference Range-Cutoff has changed.Performed By: #### UDSNC #### [facility] [address] [place] [address] OW Opiates Rapid ScreenNegativeNormalNegative <[facility] Comment on above:Result Comment: Effective: 12/07/17 Methodology and/or Reference Range-Cutoff has changed.Performed By: #### UDSNC #### [facility] [address] [place] [address] AE PCP Rapid ScreenNegativeNormalNegative <[facility] Comment on above:Performed By: #### UDSNC #### [facility] [address] [place] [address] JN Tricyclics Rapid Screen - RapidPositiveAbnormalNegative <[facility] HospitalComment on above:Result Comment: Effective: 12/07/17 Methodology and/or Reference Range-Cutoff has changed.Performed By: #### UDSNC #### [facility] [address] [place] [address] Xfcmpwodoj with Reflex to Cultureon 79-19-1035Erwsapfva Urine NegativeNegativeBON SECOURS MERCY HEALTHBlood, UrineNegativeNegativeBON SECOURS MERCY HEALTHClarity, UAClearClearBON SECOURS MERCY HEALTHColor, UAYellow Straw/YellowBON SECOURS MERCY HEALTHGlucose, Ur250 mg/dLAbnormalNegativeBON SECOURS MERCY HEALTHKetones Ql (U)NegativeNegative mg/dLBON SECOURS [facility]ALTH Leukocyte esterase Test strip Ql (U)TRACEAbnormalNegativeBON SECOURS MERCY HEALTHNitrite, UrineNegativeNegativeBON SECOURS MERCY HEALTHpH, UA5.05 - 9B[facility] HEALTHProtein, UANegativeNegative mg/dLB[facility] SECOURS MER[facility]ALTH Specific [place], UA1.0151.005 - 1.03B[facility] MERCY HEALTHUrine Reflex to CultureNot IndicatedBON SECOURS MERCY HEALTHUrobilinogen, Urine0.2NINFBON SECOURS MERCY HEALTHUrinalysis, reflex to cultureon 97-16-6409Iuuws Reflexed to CultureNot IndicatedNormalMerBanner Ironwood Medical CenterComment on above:Performed By: #### UAR #### [facility] [address] [place] [address] Sazdgdskv Ql (U)NegativeNormalNegOrchard HospitalComment on above:Performed By: #### UAR #### [facility] [address] [place] [address] Dyrkxpn (U)ClearNormalClearParkwood HospitalComment on above: Performed By: #### UAR #### [facility] [address] [place] [address] Ldlmd (U)YellowNormalStraw/YellParkwood HospitalComment on above: Performed By: #### UAR #### [facility] [address] [place] [address] Msmeoia Ql (U)250 mg/dLAbnormalNegOrchard HospitalComment on above:Performed By: #### UAR #### [facility] [address] [place] [address] Tgpirpjxsc Ql (U)NegativeNormalNegativeParkwood HospitalComment on above:Performed By: #### UAR #### [facility] [address] [place] [address] Llbrjnz Ql (U)NegativeNormalNegOrchard HospitalComascension standish hospital on above:Performed By: #### UAR #### [facility] [address] [place] [address] Ksyfcrpvh esterase Test strip Ql (U)TRACEAbnormalNegOrchard HospitalComascension standish hospital on above:Performed By: #### UAR #### [facility] [address] [place] [address] Psdzavl Ql (U)NegativeNormalNegOrchard HospitalComment on above:Performed By: #### UAR #### [facility] [address] [place] [address] lY (U)5.0 [pH]Normal5.0-9.0Parkwood HospitalComascension standish hospital on above: Performed By: #### UAR #### [facility] [address] [place] [address] Nduniia Ql (U)NegativeNormalNegativeParkwood HospitalComment on above:Performed By: #### UAR #### [facility] [address] [place] [address] Yttlfzeo gravity (U) [Rel density]1.939Rslxnq5.005-1.03Parkwood HospitalComment on above:Performed By: #### UAR #### [facility] [address] [place] [address] Ipfgtotcfaim Qn (U)0.2 {Sheyla'U}/dLNormal< 2.0[facility] Comment on above:Performed By: #### UAR #### [facility] [address] [place] [address] Xsqdo Drug Screen, Comprehensiveon 44-30-4271Gekvhcmfkph Screen, UrineNegativeNegative <500 ng/mLBRIDGEWATER STATE HOSPITALHealthline Networks [facility] HOSPITALComment on above: Effective: 12/07/17 Methodology and/or Reference Range-Cutoff has changed. Barbiturate Screen, UrNegativeNegative <200 ng/mLBANNER HEART HOSPITAL BTIG [facility] HOSPITALComment on above:Effective: 12/07/17 Methodology and/or Reference Range-Cutoff has changed. Benzodiazepine Screen, UrineNegativeNegative <150 ng/mLBANNER HEART HOSPITAL [employer] Comment on above:Effective: 12/07/17 Methodology and/or Reference Range-Cutoff has changed. Cannabinoid Scrn, UrNegativeNegative <50 ng/mLBRIDGEWATER STATE HOSPITALIterasi [facility]IV[facility] H[facility] MEDICAL CENTERAntares Vision [facility] CITY HOSPITALCocaine Metabolite Screen, UrineNegativeNegative <150 ng/mLBANNER HEART HOSPITAL [employer] Comment on above:Effective: 12/07/17 Methodology and/or Reference Range-Cutoff has changed. Drug Screen Comment:see belowBRIDGEWATER STATE HOSPITALHealthline Networks [facility] HOSPITALComascension standish hospital on above:This method is a screening test to detect only these drug classes as part of a medical workup. Confirmatory testing by another method should be ordered if clinically indicated. Interpretation and review of laboratory resultsAbnormalBRIDGEWATER STATE HOSPITALHealthline Networks [facility] Opiate Scrn, UrNegativeNegative <100 ng/mLBRIDGEWATER STATE HOSPITALCOREY HOSPITALComment on above:Effective: 12/07/17 Methodology and/or Reference Range-Cutoff has changed. PCP Screen, UrineNegativeNegative <25 ng/mLBON HARRISON COMMUNITY HOSPITALTricyclic PositiveAbnormalNegative <300 ng/mLBON HARRISON COMMUNITY HOSPITALComment on above: Effective: 12/07/17 Methodology and/or Reference Range-Cutoff has changed. [facility] COMMUNITY HOSPITALUrine Microscopicon 29-10-2003Iecopuxgpp cells LM Ql (Urine sed)3-5NormalParkwood HospitalComment on above:Performed By: #### UMIC #### [facility] [address] [facility] [address] Lfvzl BacteriaFEWAbnormalNegativeParkwood HospitalComment on above:Performed By: #### UMIC #### [facility] [address] [facility] [address] Bqmcz QRH4-7Dyotcc8-7Uqeij [facility] Behavioral Health ServicesComment on above:Performed By: #### UMIC #### [facility] [address] [facility] [place] [address] Rxkkg CSB1-0Hjccir8-4Jxkdz Allen HospitalComment on above:Performed By: #### UMIC #### [facility] [address] [facility] [address] XLH B SURFACE ANTIGEN SCREENon 93-02-8498NHfSc ScreenNegativeNormal NegativeThe [facility] CenterComment on above:Performed By: #### HBSANS ####[facility] [address] [place], [place] [address]Wc. Yilan ChangHEPATITIS C ANTIBODYon 81-40-0904Tiu C Virus Ab0.1 s/co ratioNormal 0.0-0.9The [facility] CenterComascension standish hospital on above:Result Comment: Negative: < 0.8 Indeterminate: 0.8 - 0.9 Positive: > 0.9 . HCV antibody alonedoes not differentiate between previous resolved infection and active infection. The CDC and current clinical guidelines recommend that a positive HCV antibody result be followed up with an HCV RNA test to support the diagnosis of acute HCV infection. [facility] offers Hepatitis C Virus (HCV) RNA, Diagnosis, EBONIE (254109) and Hepatitis C Virus (HCV) Antibody with reflex to Quantitative Real-time PCR ( 536823).Performed By: #### HCV ####[facility] [address] [place], [place] [address]Dr.Devin SureshHIV 1 AND 2 WITH REFLEXon 35-22-8583TIR Screen 4th Generation wRfxNon-ReactiveNormalNon ReactiveThe [facility] Comment on above:Result Comment: HIV NegativeHIV-1/HIV-2 antibodies and HIV-1 p24 antigen were NOT detected.There isno laboratory evidence of HIV infection. Performed By: #### HIV12 ####[facility] [address] [place], [place] [address]Dr. Devin ChangRPR QUANTon 48-89-5291Dqxve Plasma Reagin, QuantNon-ReactiveNormalNonRea<1:1The [facility] CenterComment on above: Result Comment: Please Note: This test does not meet current guidelines forscreening and diagnosis of syphilis. This test is intended forfollowing treatment response in patients being treated forsyphilis infection. To screen for syphilis infection, a reflexcascade that includes both RPR and a treponema- specific assayshould be utilized, such as Treponema pallidum (Syphilis)Screening [place] (619161) or Rapid Plasma Reagin (RPR) TestWith Reflex to Quantitative RPR and Confirmatory Treponemapallidum Antibodies (861020).Performed By: #### RPRQ ####[facility] Czhgyryk[address] [place], [place] [address]Dr. Devin SureshCBC AUTO DIFFon 60-00-4837WGPN #0.1 103/ulNormal0.0-0.1The [facility] CenterComment on above:Performed By: #### CBC ####[facility] [address] [place], [place] [id number].Devin SureshBasophils/100 WBC (Bld)0.9 %Normal0.2-2.0The [facility] CenterComment on above:Performed By: #### CBC ####[facility] Htwonlrhtj[address] [place], [place] [address]Dr.Tishemily ChangEO #0.2 103/ulNormal0.0-0.7The [facility] CenterComment on above:Performed By: #### CBC ####[facility] Vwgkqnamne[address] [place], [place] [address]Dr.Tishemily ChangEosinophils/100 WBC (Bld)2.8 %Normal 0.9-7.0The [facility]ckley HospitalComment on above:Performed By: #### CBC ####[facility] Fdyovljmfx[address] [place], [place] [address]Dr.Tishemily Suresh Erythrocyte distribution width (RBC) [Ratio]12.0 %Vtatvg75.0-15.0The [facility] CenterComment on above:Performed By: #### CBC ####[facility] Oirsrdudmt[address] [place], [place] [address]Dr.Devin ChangHematocrit (Bld) [Volume fraction]34.6 %Critically low36.0-48.0The [facility] CenterComment on above:Performed By: #### CBC ####[facility] Tyqscsxhpf[address] [place], [place] [address]Dr.Tishemily ChangHemoglobin (Bld) [Mass/Vol]11.7 g/dL Critically low12.0-16.0The [facility] CenterComment on above:Performed By: #### CBC ####[facility] Idmqheutzc[address] [place], [place] [address]Dr. Devin ChangIG #0.04 10e3/ulCritically high0.00-0.03The [facility] CenterComment on above:Performed By: #### CBC ####[facility] Urbawiyfja[address] [place], [place] [address]Dr.Devin ChangIG %0.6 %Critically high0.0-0.5The [facility] CenterComment on above:Performed By: #### CBC ####[facility] Vbtugnmcpw[address] [place], [place] [address]Dr.Devin ChangLYMPH #2.0 103/ulNormal1.2-3.8The [facility] CenterComment on above:Performed By: #### CBC ####[facility] [address] [place] [address]Dr. Devin SureshLymphocytes/100 WBC (Bld)31.2 %Tjicbb44.5-60.0[facility] Comment on above:Performed By: #### CBC ####[facility] [address] [place] [address]Dr.Devin SureshMANUAL DIFF REQNONormalThe [facility] CenterComment on above:Performed By: #### CBC ####[facility] [address] [place] [address]Dr.Tishemily SureshH (RBC) [Entitic mass]30.8 ioVkvaoy10.7-34.0The [facility] CenterComment on above: Performed By: #### CBC ####[facility] Cuojdybwut[address] [place], [place] [address]Dr.Devin SureshMCHC (RBC) [Mass/Vol]33.8 g/dLNormal 29.9-35.2The [facility] CenterComment on above:Performed By: #### CBC ####[facility] [address]vmsmyxjqd[address] [place], [place] [address]Dr. Tishemily SureshMCV (RBC) [Entitic vol]91.1 xUEisnqq67.0-99.0The [facility] Comment on above:Performed By: #### CBC ####[facility] Ebccttxqtr[address] [place], [place] [address]Dr.Devin SureshMONO #0.4 103/ulNormal0.3-0.8 The [facility] CenterComment on above:Performed By: #### CBC ####[facility] Irljetzlvh[address] [place], [place] [address]Dr.Devin Suresh Monocytes/100 WBC (Bld)6.6 %Normal1.7-12.0The [facility] CenterComment on above: Performed By: #### CBC ####[facility] Vuzdyihtyi[address] [place], [place] [address]Dr.Devin SureshNEUT #3.7 103/ulNormal1.4-6.5The [facility] Kay HospitalComment on above:Performed By: #### CBC ####[facility] [address] [place] [address]Dr.Tishemily KerwinNeutrophils/100 WBC (Bld)57.9 %Admlwz98.0-75.0The [facility] CenterComment on above:Performed By: #### CBC ####[facility] Judffqowvy[address] [place], [place] [address]Dr.Devin SureshPlatelet mean volume (Bld) [Entitic vol]9.0 fLCritically low 9.5-13.5The [facility]ckley HospitalComment on above:Performed By: #### CBC ####[facility] Anldewjwpf[address] [place], [place] [address]Dr. Devin SureshPLT272 103/vhJxztgw519-701Tig [facility] CenterComment on above: Performed By: #### CBC ####[facility] Bdlxvgrzgf39[address] [place], [place] [address]Dr.Devin SureshRBC3.80 106/ulCritically low4.20-5.40The [facility] CenterComment on above:Performed By: #### CBC ####[facility] Jumpmckebe[address] [place], [place] [address]Dr.Devin SureshWBC6.4 103/ul Normal4.0-11.0The [facility] CenterComment on above:Performed By: #### CBC ####[facility] Sknnezctlh[address] [place], [place] [address]Dr. Devin Brantley 1/2 RAPID (EXPOSURE ONLY)on 19-92-3278PXJ ABNProMedica Bay Park HospitalComment on above:Performed By: #### RPDHIV ####[facility] Cgymsrucut[address] [place], [place] [address]Dr. Devin Brantley AGNSioux County Custer Health HospitalComment on above:Performed By: #### RPDHIV ####[facility] Bnabktpbak[address] [place], [place] [address]Dr. Devin SureshINTERNAL CONTROLSWithin Normal LimitsNormalWithin Normal LimitsThe [facility] CenterComment on above:Performed By: #### RPDHIV ####[facility] [address] [place] [address]Dr. Yilan KerwinRAPID HIV INFOSEE [facility] Medical CenterComment on above:Result Comment: This test is used for the initial screening of the exposure source. Confirmation ofall results will be obtained through reference lab testing.Performed By: #### RPDHIV ####[facility] [address] [place] [address]Dr. Yilan ChangPROF 14(COMP METB)on 98-24-4653Wzsdicw [Mass/Vol]2.7 g/dL Critically low3.4-5.0The [facility] CenterComment on above:Performed By: #### CMP ####[facility] Hsutsxxwji[address] [place], [place] [address]Dr. Yilan ChangAlbumin/Globulin [Mass ratio]0.9 {ratio}NormalPremier Health Comment on above:Performed By: #### CMP ####[facility] Aucqhibokf[address] [place], [place] [address]Dr.Yilan ChangALP [Catalytic activity/Vol]98 U/BCgjdks73-325Tan [facility] CenterComment on above:Performed By: #### CMP ####[facility] Mhzditrhch[address] [place], [place] [address]Dr. Yilan ChangALT [Catalytic activity/Vol]17 U/DBnsoql97-42Zqe [facility] Comment on above:Performed By: #### CMP ####[facility] Tffkdhzdng[address] [place], [place] [address]Dr.Yilan ChangAnion gap [Moles/Vol]12.0 mmol/LNormalThe [facility] CenterComment on above:Performed By: #### CMP ####[facility] Pvgdkbygvd[address] [place], [place] [address]Dr. Yilan ChangAST [Catalytic activity/Vol]6 U/LCritically wxn94-71San [facility] CenterComment on above:Performed By: #### CMP ####[facility] Cdqehwkbgx9[address] [place], [place] [address]Dr.Yilan ChangBilirubin [Mass/Vol]0.3 mg/dLNormal0.2-1.0The [facility] CenterComment on above:Performed By: #### CMP ####[facility] Pdhbxlxwbk8[address] [place], [place] [address]Dr.Yilan ChangCalcium [Mass/Vol]8.1 mg/dLCritically low8.5-10.1The [facility] CenterComment on above:Performed By: #### CMP ####[facility] Kjcojdpojd[address] [place], [place] [address]Dr.Yilan ChangChloride [Moles/Vol]108 mmol/LCritically ydvu65-596Bdd [facility] CenterComment on above: Performed By: #### CMP ####[facility] Dtbsaxgdme[address] [place], [place] [address]Dr.Yilan ChangCO2 [Moles/Vol]25.4 mmol/LNormal 21.0-32.0The [facility] CenterComment on above:Performed By: #### CMP ####[facility] Zkpfqllctl3[address] [place], [place] [address]Dr. Yilan ChangCreatinine [Mass/Vol]0.80 mg/dLNormal0.55-1.02[facility] Comment on above:Performed By: #### CMP ####[facility] Nujkrsqxyl[address] [place], [place] [address]Dr.Yilan ChangEGFR-AF CONGOLESE>60Normal>=60 The [facility] CenterComment on above:Performed By: #### CMP ####[facility] Qomvexgpwp[address] [place], [place] [address]Dr.Yilan ChangEGFR- NON AF CONGOLESE>60Normal>=60Prem[facility] HealthComment on above:Performed By: #### CMP ####[facility] Uysaorronb45[address] [place], [place] [address]Dr.Yilan ChangGlobulin (S) [Mass/Vol]3.0 g/dLNormalThe [facility] Comment on above:Performed By: #### CMP ####[facility] Geltcczhzl[address] [place], [place] [address]Dr.Yilan ChangGlucose [Mass/Vol]153 mg/dL Critically vnef14-021Npz [facility] CenterComment on above:Performed By: #### CMP ####[facility] Fbegxeqoby[address] [place], [place] [address]Dr. Devin ChangPotassium [Moles/Vol]3.4 mmol/LCritically low3.5-5.1The [facility] CenterComment on above:Performed By: #### CMP ####[facility] Xqwhbhmhfb[address] [place], [place] [address]Dr.Devin ChangProtein [Mass/Vol]5.7 g/dLCritically low6.4-8.2The [facility] CenterComment on above: Performed By: #### CMP ####[facility] Hvywbrfstf[address] [place], [place] [address]Dr.Devin ChangSodium [Moles/Vol]142 mmol/LNormal 136-145The [facility] CenterComment on above:Performed By: #### CMP ####[facility] Spomcdakgd[address] [place], [place] [address]Dr.Devin ChangUrea nitrogen [Mass/Vol]16.0 mg/dLNormal7.0-18.0The [facility] CenterComment on above:Performed By: #### CMP ####[facility] [address]zdouyfosj[address] [place], [place] [address]Dr.Tishlan ChangUrea nitrogen/Creatinine [Mass ratio] 20.0 mg/mgGrand Lake Joint Township District Memorial HospitalComment on above:Performed By: #### CMP ####[facility] Qhamqhoggw[address] [place], [place] [address]Dr. Devin ChangXR SACRUM_COCCYXon 33-55-6216RO SACRUM_COCCYXNormSelect Medical Specialty Hospital - TrumbullCHEMISTRYOrdered By: Desi Lord on 52-79-6215Bntkqox [Mass/Vol]123 mg/xDZuqw68 - 99 mg/dLPOST [facility] [place] POC SubsectionComment on above:Result Comment: Notified RN/MDPOC Device [id number] Interpretation CodePOST [facility] [place] POC SubsectionPOC User [id number] Interpretation CodeFTMC POC SubsectionPOC UsernameAJOHNIN, MARCYInvalid Interpretation CodeFTMC POC SubsectionGlucose [Mass/Vol]94 mg/aDRyltuk16 - 99 mg/dLFTMC POC SubsectionComment on above:Result Comment: Notified RN/MDPOC Device [id number] Interpretation CodeFT[facility] POC SubsectionPOC User [id number] Interpretation CodeFT[facility] POC Subsection POC UsernameAUSTIN MARCYInvalid Interpretation CodeFTMC POC SubsectionCHEMISTRY Ordered By: Lab ROPUser on 60-54-9276Zwyezth [Mass/Vol]130 mg/xGMasa62 - 99 mg/dLFTMC POC SubsectionComment on above:Result Comment: Cleaned MeterPOC Device [id number] Interpretation CodeFTMC POC SubsectionPOC User ID [id number] Interpretation CodeFT[facility] POC SubsectionPOC UsernameROMP DANEKAInvalid Interpretation CodeFTMC POC SubsectionCHEMISTRYOrdered By: SYSTEM SYSTEM on 57-35-2851WEI.beta subunit Qn9 m[IU]/mLHigh1 - 3 mIU/mLFTMC Remisol CEFEPIME:SUSC:PT:ISOLATE:ORDQN:MICon 49-46-1863Tuhntcuy DOMENIC [Susc]10,000 cfu/ml Proteus mirabilis 50,000 cfu/ml Staphylococcus speciesUniversity Hospitals Samaritan Medical CenterCHEMISTRY Ordered By: SYSTEM SYSTEM on 66-92-1980Suszost [Mass/Vol]3.5 g/dLNormal3.3 - 5.0 gm/dLFTMC RemisolAlbumin/Globulin [Mass ratio]1.0 {ratio}Low1.1 - 2.2[facility] RemisolALP [Catalytic activity/Vol]95 [iU]/eUhrqnl70 - 98 Int._Unit/LFTMC RemisolALT No additional P-5'-P [Catalytic activity/Vol]12 [iU]/dNormal6 - 46 Int._Unit/LFTMC RemisolAnion gap [Moles/Vol]13 mmol/LNormal6 - 16 mEq/LFTMC RemisolAST [Catalytic activity/Vol]14 [iU]/dNormal5 - 43 Int._Unit/LFTMC Remisol Bilirubin [Mass/Vol]0.7 mg/dLNormal0.0 - 1.1 mg/dLFT RemisolBilirubin.direct [Mass/Vol]0.1 mg/dLNormal0.1 - 0.4 mg/dLFTMC RemisolBilirubin.indirect [Mass or moles/Vol]0.6 mg/dLNormal0.1 - 0.9 mg/dLFTMC RemisolCalcium [Mass/Vol]9.4 mg/dL Normal8.9 - 11.1 mg/dLFTMC RemisolChloride [Moles/Vol]101 mmol/MLfsdwj282 - 111 mmol/LFTMC RemisolCO2 [Moles/Vol]25 mmol/OLvqvwx27 - 31 mmol/LFTMC Remisol Creatinine [Mass/Vol]1.0 mg/dLNormal0.5 - 1.3 mg/dLFT RemisolGFR/1.73 sq M.predicted among blacks MDRD (S/P/Bld) [Vol rate/Area]mL/min/1.73 e0Htabnj >=59mL/min/1.73 m2[facility] [place] Chem SGFR/1.73 sq M.predicted among non-blacks MDRD (S/P/Bld) [Vol rate/Area]60 mL/min/1.73 s8Rqbqjy>=59mL/min/1.73 m2[facility] [place] Chem S Globulin (S) [Mass/Vol]3.5 g/dLNormal1.4 - 4.0 gm/dLFTMC RemisolGlucose [Mass/Vol]260 mg/hOQrsh40 - 199 mg/dLFTMC RemisolHCG.beta subunit Qn10 m[IU]/mL High1 - 3 mIU/mLFT RemisolPotassium [Moles/Vol]4.0 mmol/LNormal3.5 - 5.3 mmol/LFTMC RemisolProtein [Mass/Vol]7.0 g/dLNormal6.0 - 7.8 gm/dLFTMC Remisol Sodium [Moles/Vol]135 mmol/HHqxerz773 - 145 mmol/LFTMC RemisolUrea nitrogen [Mass/Vol]23 mg/dLHigh5 - 21 mg/dLFTMC RemisolUrea nitrogen/Creatinine [Mass ratio]23 mg/wdCxmm55 - 20[facility] RemisolCefepime DOMENIC [Susc]on 41-21-4545CarucgqMarion HospitalHEMATOLOGYOrdered By: CYPHER SYSTEM on 04-89-5416Xthopxsjs/100 WBC (Bld)1.1 %Normal0.0 - 2.0 %[facility] HemeAutoSSBasophils/Leukocytes Auto (Bld) [Pure # fraction]0.1 E9/LNormal0.0 - 0.2 E9/LFTMC HemeAutoSSEosinophils/100 WBC (Bld)2.7 %Normal0.0 - 8.0 %[facility] HemeAutoSSEosinophils/Leukocytes Auto (Bld) [Pure # fraction]0.2 E9/LNormal0.0 - 0.5 E9/LFTMC HemeAutoSSLymphocytes/100 WBC (Bld)28.6 %Jxziib97.0 - 50.0 %[facility] HemeAutoSSLymphocytes/Leukocytes Auto (Bld) [Pure # fraction]2.2 E9/LNormal1.0 - 4.0 E9/LFTMC HemeAutoSSMonocytes/100 WBC (Bld)6.2 %Normal4.0 - 14.0 %[facility] HemeAutoSSMonocytes/Leukocytes Auto (Bld) [Pure # fraction]0.5 E9/LNormal0.2 - 1.0 E9/LFTMC HemeAutoSSNeutrophils/100 WBC (Bld)61.4 %Xmqwil54.0 - 75.0 %[facility] HemeAutoSSNeutrophils/Leukocytes Auto (Bld) [Pure # fraction]4.6 E9/LNormal2.0 - 7.5 E9/LFTMC HemeAutoSSHEMATOLOGYOrdered By: Brisa Cuellar on 11-04-2021 Erythrocyte distribution width (RBC) [Ratio]12.4 %Uiusfw50.9 - 14.2 %[facility] HemeAutoSSHematocrit (Bld) [Volume fraction]37.7 %Uajzui77.0 - 46.0 %[facility] HemeAutoSSHemoglobin (Bld) [Mass/Vol]13.2 g/kSKepkri58.0 - 16.0 gm/dLFTMC HemeAutoSSMCH (RBC) [Entitic mass]31.3 xpYtqcoa12.0 - 34.0 pgFC HemeAutoSSMCHC (RBC) [Mass/Vol]35.1 g/qYTgliix44.4 - 36.0 gm/dLFT HemeAutoSSMCV (RBC) [Entitic vol]89.1 wHHsloed73.0 - 100.0 fLPOST [facility] [place] HemeAutoSSPlatelet mean volume (Bld) [Entitic vol]6.9 fLNormal6.4 - 10.8 fLPOST [facility] [place] HemeAutoSSPlatelets (Bld) [#/Vol]373.0 E9/NYszneq165.0 - 500.0 E9/LFWE[facility] [place] HemeAutoSSRBC (Bld) [#/Vol]4.2 E12/LLow4.3 - 5.9 E12/LFWEATHERF[facility] [place] HemeAutoSSWBC corrected for nucl RBC Auto (Bld) [#/Vol]7.5 E9/LNormal4.0 - 11.0 E9/LFWEATHERF[facility] [place] HemeAutoSSURINALYSISOrdered By: Sharla Villagomez on 59-54-0577Zcikvbtm LM Ql (Urine sed)2+ /HPFInvalid Interpretation CodeTrace/HPFPOST [facility] [place] UA Auto SSBilirubin Ql (U)Negative (11/04/21 12:55 PM)NormalNegativePOST [facility] [place] [facility] Auto SSClarity (U)Slightly Cloudy *ABN* (11/04/21 12:55 PM)Invalid Interpretation CodeClearFWEATHERFORD [facility]ION[facility] [place] UA Auto SSColor (U)Yellow (11/04/21 12:55 PM)NormalYellowPOST [facility] [place] [facility] Auto SSCrystals LM Ql (Urine sed)Present (11/04/21 12:55 PM)NormalPOST [facility] [place] [facility] Auto SSEpithelial cells.squamous LM.HPF (Urine sed) [#/Area]5-8 /HPFNormal0-2/HPFFT UA Auto SSGlucose Test strip (U) [Mass/Vol]3+ *ABN* (11/04/21 12:55 PM)Invalid Interpretation CodeNegativePOST [facility] [place] [facility] Auto SSHemoglobin Ql (U)Trace *ABN* (11/04/21 12:55 PM)Invalid Interpretation CodeNegativePOST [facility] [place] [facility] Auto SSKetones (U) [Mass/Vol]Negative (11/04/21 12:55 PM)NormalNegativePOST [facility] [place] [facility] Auto SSLithium.plasma/[place].RBC (Bld) [Mass ratio]0-3 /HPFNormal0-3/HPFPOST [facility] [place] [facility] Auto SSMucus Ql (Urine sed)Trace (11/04/21 12:55 PM)NormalPOST [facility] [place] [facility] Auto SSNitrite Ql (U)Positive *ABN* (11/04/21 12:55 PM)Invalid Interpretation CodeNegativePOST [facility] [place] [facility] Auto SSpH (U)6.0 *NA* (11/04/21 12:55 PM)Invalid Interpretation Code5.0 - 9.0[facility] [place] [facility] Auto SSProtein (U) [Mass/Vol]Negative (11/04/21 12:55 PM)NormalNegativePOST [facility] [place] [facility] Auto SSSpecific gravity (U) [Rel density]>=1.030 *NA* (11/04/21 12:55 PM)Invalid Interpretation Code1.005 - 1.030[facility] [place] [facility] Auto SSUA Spec DescClean Catch (11/04/21 12:55 PM)NormalPOST [facility] [place] [facility] Auto SSUrobilinogen Qn (U)0.3597757 {Sheyla'U}/dLNormal0.0 - 1.0 EU/dLPOST [facility] [place] [facility] Auto SSWBC Auto Ql (U)Negative (11/04/21 12:55 PM)NormalNegativePOST [facility] [place] [facility] Auto SSWBC casts LM.LPF (Urine sed) [#/Area]0-3 (11/04/21 12:55 PM)NormalPOST [facility] [place] [facility] Auto SSWBC LM.HPF (Urine sed) [#/Area]0-5 /HPF Normal0-5/HPFPOST [facility] [place] [facility] Auto SSCHEMISTRYOrdered By: SYSTEM SYSTEM on 10-09-2021 Anion gap [Moles/Vol]14 mmol/LNormal6 - 16 mEq/LFTMC RemisolCalcium [Mass/Vol] 8.5 mg/dLLow8.9 - 11.1 mg/dLPOST [facility] [place] RemisolChloride [Moles/Vol]103 mmol/JXkvrwn388 - 111 mmol/LFT[facility] RemisolCO2 [Moles/Vol]22 mmol/TWlseei45 - 31 mmol/LFT[facility] Remisol Creatinine [Mass/Vol]1.0 mg/dLNormal0.5 - 1.3 mg/dLFT RemisolGFR/1.73 sq M.predicted among blacks MDRD (S/P/Bld) [Vol rate/Area]mL/min/1.73 x0Ftcdcd >=59mL/min/1.73 m2FT Chem SGFR/1.73 sq M.predicted among non-blacks MDRD (S/P/Bld) [Vol rate/Area]60 mL/min/1.73 t1Bizdzz>=59mL/min/1.73 m2FT Chem S Glucose [Mass/Vol]158 mg/lBAeiqwu19 - 199 mg/dLFT RemisolPotassium [Moles/Vol] 3.7 mmol/LNormal3.5 - 5.3 mmol/LFT[facility] RemisolSodium [Moles/Vol]135 mmol/LNormal 135 - 145 mmol/LFT[facility] RemisolUrea nitrogen [Mass/Vol]13 mg/dLNormal5 - 21 mg/dL [facility] RemisolUrea nitrogen/Creatinine [Mass ratio]13 mg/fzRjndoi40 - 20FT RemisolHEMATOLOGYOrdered By: SYSTEM SYSTEM on 76-56-6091Xfdoivtpb/100 WBC (Bld) 0.6 %Normal0.0 - 2.0 %[facility] [place] HemeAutoSSBasophils/Leukocytes Auto (Bld) [Pure # fraction]0.0 E9/LNormal0.0 - 0.2 E9/LFTMC HemeAutoSSEosinophils/100 WBC (Bld)0.4 %Normal0.0 - 8.0 %[facility] HemeAutoSSEosinophils/Leukocytes Auto (Bld) [Pure # fraction]0.0 E9/LNormal0.0 - 0.5 E9/LFT[facility] HemeAutoSSLymphocytes/100 WBC (Bld) 15.5 %Vazmju15.0 - 50.0 %[facility] HemeAutoSSLymphocytes/Leukocytes Auto (Bld) [Pure # fraction]1.0 E9/LNormal1.0 - 4.0 E9/LFT[facility] HemeAutoSSMonocytes/100 WBC (Bld)8.5 %Normal4.0 - 14.0 %[facility] HemeAutoSSMonocytes/Leukocytes Auto (Bld) [Pure # fraction]0.5 E9/LNormal0.2 - 1.0 E9/LFT[facility] HemeAutoSSNeutrophils/100 WBC (Bld) 75.0 %Cdyzcf50.0 - 75.0 %[facility] HemeAutoSSNeutrophils/Leukocytes Auto (Bld) [Pure # fraction]4.8 E9/LNormal2.0 - 7.5 E9/L[facility] HemeAutoSSHEMATOLOGYOrdered By: Laura Obrien on 96-55-6305Yzmhifnnagn distribution width (RBC) [Ratio]12.9 %Hnajoz35.9 - 14.2 %[facility] HemeAutoSSHematocrit (Bld) [Volume fraction]36.9 %Kbngqw61.0 - 46.0 %[facility] HemeAutoSSHemoglobin (Bld) [Mass/Vol]13.1 g/gTAccyzr15.0 - 16.0 gm/dL FT HemeAutoSSMCH (RBC) [Entitic mass]31.9 rpPgablq58.0 - 34.0 pgFTMC HemeAutoSSMCHC (RBC) [Mass/Vol]35.5 g/kZPwlbxd02.4 - 36.0 gm/dLFTMC HemeAutoSS MCV (RBC) [Entitic vol]89.6 dOKhihuf65.0 - 100.0 fLFT HemeAutoSSPlatelet mean volume (Bld) [Entitic vol]7.0 fLNormal6.4 - 10.8 fLFTMC HemeAutoSSPlatelets (Bld) [#/Vol]284.0 E9/BAuzvdn801.0 - 500.0 E9/L[facility] HemeAutoSSRBC (Bld) [#/Vol] 4.1 E12/LLow4.3 - 5.9 E12/LFT[facility] HemeAutoSSWBC corrected for nucl RBC Auto (Bld) [#/Vol]6.4 E9/LNormal4.0 - 11.0 E9/LFT[facility] HemeAutoSSMICRO OTHER TESTSOrdered By: Shannen Sosa on 63-34-9682Paixzdmwsc A AgNegative (10/09/21 4:48 PM)NormalNegative[facility] [place] Man SeroInfluenzae B AgNegative (10/09/21 4:48 PM)NormalNegativeFT Man SeroRapid COV Int NEG CtlPass (10/09/21 4:48 PM)NormalFT Man SeroRapid COV Int POS CtlPass (10/09/21 4:48 PM)Normal[facility] [place] SeroSARS-CoV+SARS-CoV-2 (COVID-19) Ag IA.rapid Ql (Resp)Not Detected (10/09/21 4:48 PM)NormalNot DetectedFT Man SeroSEROLOGYOrdered By: Shannen Sosa on 85-37-8853Vyax hCG QlPositive (10/09/21 4:48 PM)Normal[facility] [place] Man SeroCHEMISTRYOrdered By: SYSTEM SYSTEM on 78-27-0205Ccjcfvv [Mass/Vol]3.8 g/dLNormal3.3 - 5.0 gm/dLPOST [facility] [place] Remisol Albumin/Globulin [Mass ratio]1.2 {ratio}Normal1.1 - 2.2[facility] RemisolALP [Catalytic activity/Vol]89 [iU]/bVzlfxx94 - 98 Int._Unit/LFT[facility] RemisolALT No additional P-5'-P [Catalytic activity/Vol]13 [iU]/dNormal6 - 46 Int._Unit/LFT[facility] RemisolAnion gap [Moles/Vol]13 mmol/LNormal6 - 16 mEq/L[facility] RemisolAST [Catalytic activity/Vol]15 [iU]/dNormal5 - 43 Int._Unit/LFT[facility] RemisolBilirubin [Mass/Vol]0.7 mg/dLNormal0.0 - 1.1 mg/dLFT RemisolCalcium [Mass/Vol]9.0 mg/dL Normal8.9 - 11.1 mg/dLPOST [facility] [place] RemisolChloride [Moles/Vol]105 mmol/KIjriyc715 - 111 mmol/LFT[facility] RemisolCholesterol [Mass/Vol]188 mg/zWAlwqml308 - 200 mg/dLFTMC RemisolCholesterol in HDL [Mass/Vol]48 mg/dLInvalid Interpretation CodeFT RemisolCholesterol in LDL [Mass/Vol]119 mg/dLNormal<=129mg/dLFTMC Remisol Cholesterol in VLDL [Mass/Vol]22 mg/dLNormal7 - 40 mg/dLFTMC RemisolCO2 [Moles/Vol]23 mmol/YHzutew05 - 31 mmol/LFT[facility] RemisolCreatinine [Mass/Vol]1.0 mg/dLNormal0.5 - 1.3 mg/dLFTMC RemisolGFR/1.73 sq M.predicted among blacks MDRD (S/P/Bld) [Vol rate/Area]mL/min/1.73 l9Nukvhy>=59mL/min/1.73 m2FT Chem S GFR/1.73 sq M.predicted among non-blacks MDRD (S/P/Bld) [Vol rate/Area]60 mL/min/1.73 m2Bonhet>=59mL/min/1.73 m2FT Chem SGlobulin (S) [Mass/Vol]3.2 g/dL Normal1.4 - 4.0 gm/dLFT RemisolGlucose [Mass/Vol]71 mg/xLKoirvc35 - 199 mg/dL FT RemisolPotassium [Moles/Vol]2.9 mmol/LLow3.5 - 5.3 mmol/LFT[facility] Remisol Protein [Mass/Vol]7.0 g/dLNormal6.0 - 7.8 gm/dLFTMC RemisolSodium [Moles/Vol]138 mmol/XByfhja966 - 145 mmol/LFTMC RemisolTriglyceride [Mass/Vol]108 mg/dLNormal <=149mg/dLFTMC RemisolTSH Qn5.16 m[IU]/LNormal0.34 - 5.60 mcIU/mLFTMC Remisol Urea nitrogen [Mass/Vol]19 mg/dLNormal5 - 21 mg/dLFTMC RemisolUrea nitrogen/Creatinine [Mass ratio]19 mg/ppVujdwo21 - 20[facility] RemisolCHEMISTRY Ordered By: Sharla Villagomez on 59-81-2325NjM9j (Bld) [Mass fraction]9.1 %High <=5.9%[facility] [place] ChemAutoSSCHEMISTRYOrdered By: Breanna Hammond on 61-08-0486Qzmyegd DL <= 20 mg/L (U) [Mass/Vol]32.4 microgram/mLHigh0.0 - 19.0 mcg/mLFTMC Remisol HEMATOLOGYOrdered By: SYSTEM SYSTEM on 20-37-7007Xkesfisko/100 WBC (Bld)0.9 % Normal0.0 - 2.0 %[facility] HemeAutoSSBasophils/Leukocytes Auto (Bld) [Pure # fraction]0.1 E9/LNormal0.0 - 0.2 E9/LFTMC HemeAutoSSEosinophils/100 WBC (Bld)1.5 %Normal0.0 - 8.0 %[facility] HemeAutoSSEosinophils/Leukocytes Auto (Bld) [Pure # fraction]0.1 E9/LNormal0.0 - 0.5 E9/LFTMC HemeAutoSSLymphocytes/100 WBC (Bld) 28.5 %Djumcq66.0 - 50.0 %[facility] HemeAutoSSLymphocytes/Leukocytes Auto (Bld) [Pure # fraction]2.5 E9/LNormal1.0 - 4.0 E9/LFT[facility] HemeAutoSSMonocytes/100 WBC (Bld)5.8 %Normal4.0 - 14.0 %[facility] HemeAutoSSMonocytes/Leukocytes Auto (Bld) [Pure # fraction]0.5 E9/LNormal0.2 - 1.0 E9/LFT[facility] HemeAutoSSNeutrophils/100 WBC (Bld) 63.3 %Lfouzc75.0 - 75.0 %[facility] HemeAutoSSNeutrophils/Leukocytes Auto (Bld) [Pure # fraction]5.6 E9/LNormal2.0 - 7.5 E9/LFT[facility] HemeAutoSSHEMATOLOGYOrdered By: Brisa Cuellar on 98-05-3717Ppsjlcbslam distribution width (RBC) [Ratio]13.1 % Ynxpao93.9 - 14.2 %[facility] HemeAutoSSHematocrit (Bld) [Volume fraction]40.6 %Normal 34.0 - 46.0 %[facility] HemeAutoSSHemoglobin (Bld) [Mass/Vol]13.7 g/bFDpkwgi75.0 - 16.0 gm/dLFTMC HemeAutoSSMCH (RBC) [Entitic mass]31.2 loQlsyyg22.0 - 34.0 pgFWEATHERFORD [facility]ION[facility] [place] HemeAutoSSMCHC (RBC) [Mass/Vol]33.8 g/pTIduvuw47.4 - 36.0 gm/dLFT HemeAutoSS MCV (RBC) [Entitic vol]92.4 xBYamcwq41.0 - 100.0 fLPOST [facility] [place] HemeAutoSSPlatelet mean volume (Bld) [Entitic vol]7.9 fLNormal6.4 - 10.8 fLPOST [facility] [place] HemeAutoSSPlatelets (Bld) [#/Vol]298.0 E9/NNdzjwz061.0 - 500.0 E9/LFC HemeAutoSSComment on above: Result Comment: Platelet count verified using smear estimate Slide reviewed by FIR.RBC (Bld) [#/Vol]4.4 E12/LNormal4.3 - 5.9 E12/LFC HemeAutoSSWBC corrected for nucl RBC Auto (Bld) [#/Vol]8.9 E9/LNormal4.0 - 11.0 E9/LFWE[facility]ERF[facility] [place] HemeAutoSSCHEMISTRYOrdered By: SYSTEM SYSTEM on 92-12-1609Bvmum gap [Moles/Vol]17 mmol/LHigh6 - 16 mEq/LFTMC RemisolCalcium [Mass/Vol]9.0 mg/dL Normal8.9 - 11.1 mg/dLPOST [facility] [place] RemisolChloride [Moles/Vol]104 mmol/JMvtmku422 - 111 mmol/LFTMC RemisolCO2 [Moles/Vol]25 mmol/EKhtmqz74 - 31 mmol/LFT[facility] Remisol Creatinine [Mass/Vol]1.0 mg/dLNormal0.5 - 1.3 mg/dLFT RemisolGFR/1.73 sq M.predicted among blacks MDRD (S/P/Bld) [Vol rate/Area]mL/min/1.73 p4Hixkvc >=59mL/min/1.73 m2[facility] Chem SGFR/1.73 sq M.predicted among non-blacks MDRD (S/P/Bld) [Vol rate/Area]60 mL/min/1.73 n6Egqnbt>=59mL/min/1.73 m2[facility] Chem S Glucose [Mass/Vol]228 mg/kNYjij06 - 199 mg/dLFT RemisolPotassium [Moles/Vol] 3.5 mmol/LNormal3.5 - 5.3 mmol/LFTMC RemisolSodium [Moles/Vol]142 mmol/LNormal 135 - 145 mmol/LFC RemisolUrea nitrogen [Mass/Vol]21 mg/dLNormal5 - 21 mg/dL [facility] [place] RemisolUrea nitrogen/Creatinine [Mass ratio]21 mg/pnKmif08 - 20FT Remisol HEMATOLOGYOrdered By: Brisa Cuellar on 05-87-4049Ykdqblvemuc distribution width (RBC) [Ratio]13.2 %Uxbenp30.9 - 14.2 %[facility] [place] HemeAutoSSHematocrit (Bld) [Volume fraction]38.8 %Oqtmwv24.0 - 46.0 %[facility] HemeAutoSSHemoglobin (Bld) [Mass/Vol]13.6 g/gMMpyvue53.0 - 16.0 gm/dLFT HemeAutoSSMCH (RBC) [Entitic mass]31.5 pgNormal 27.0 - 34.0 pgFTM HemeAutoSSMCHC (RBC) [Mass/Vol]35.0 g/pLPmquhz09.4 - 36.0 gm/dLFTMC HemeAutoSSMCV (RBC) [Entitic vol]90.2 hZXfdvtq55.0 - 100.0 fLPOST [facility] [place] HemeAutoSSPlatelet mean volume (Bld) [Entitic vol]7.5 fLNormal6.4 - 10.8 fLPOST [facility] [place] HemeAutoSSPlatelets (Bld) [#/Vol]358.0 E9/IHvdvui726.0 - 500.0 E9/LFTMC HemeAutoSSRBC (Bld) [#/Vol]4.3 E12/LNormal4.3 - 5.9 E12/LFTMC HemeAutoSSWBC corrected for nucl RBC Auto (Bld) [#/Vol]7.5 E9/LNormal4.0 - 11.0 E9/LFTMC HemeAutoSSCOVID Quick Testingon 40-90-2848ZruaujEejcynsoCwjss Tripcover Other Basic Metabolic Panelon 70-52-6307Kfmyu gap [Moles/Vol]9 mmol/LLow10 - 20 mmol/LOhioHealthCalcium [Mass/Vol]7.8 mg/dLLow8.4 - 10.2 mg/dLOhioHealthChloride [Moles/Vol]119 mmol/LHigh98 - 108 mmol/L OhioHealthCreatinine [Mass/Vol]0.72 mg/dL0.40 - 1.10OhioHealthGFR/1.73 sq M predicted among non-blacks MDRD (S/P/Bld) [Vol rate/Area]The eGFR should be used for monitoring renal function only and not for medication dosing.[facility] GFR/1.73 sq M.predicted CKD-EPI (S/P/Bld) [Vol rate/Area]103>=60 mL/min/1.73 m2 OhioHealthGlucose [Mass/Vol]70 mg/dL65 - 99 mg/dLOhioHealthHCO3 [Moles/Vol]22 mmol/L21 - 32 mmol/LOhioHealthInterpretation and review of laboratory results AbnormalOhioHealthPotassium [Moles/Vol]3.5 mmol/L3.5 - 5.1 mmol/LOhioHealth Sodium [Moles/Vol]146 mmol/FMccn874 - 145 mmol/LOhioHealthUrea nitrogen [Mass/Vol]8 mg/dL8 - 25 mg/dLOhioHealthUrea nitrogen/Creatinine [Mass ratio]11.1 mg/mgOhioHealthCBCon 33-95-7255Afxjgzmlvde distribution width (RBC) [Entitic vol]12.2 %11.6 - 14.8 %OhioHealthHematocrit (Bld) [Volume fraction]35.1 %Low36 - 46 %OhioHealthHemoglobin (Bld) [Mass/Vol]11.4 g/dLLow12 - 16 g/dLOhioHealth Interpretation and review of laboratory resultsAbnormalOhioHealthMCH (RBC) [Entitic mass]30.6 pg26 - 34 pgOhioHealthMCHC (RBC) [Mass/Vol]32.5 g/dL31 - 37 g/dLOhioHealthMCV (RBC) [Entitic vol]94.4 fL80 - 100 fLOhioHealthNucleated RBC (Bld) [#/Vol]0.00 10*3/uLOhioHealthNucleated RBC/100 WBC (Bld) [Ratio]0.0 % LouisianaHealthPlatelet mean volume (Bld) [Entitic vol]9.4 fL9.4 - 12.4 fLOhioHealth Platelets (Bld) [#/Vol]191 10*3/uLOhioHealthRBC (Bld) [#/Vol]3.72 10*6/uLLow OhioHealthWBC (Bld) [#/Vol]5.46 10*3/uLOhioHealthLactic Acid, Plasmaon 41-73-0370Sphllywjrtwfzl and review of laboratory resultsNormalOhioHealthLactate [Moles/Vol]1.9 mmol/L0.6 - 2 mmol/LOhioHealthMagnesiumon 00-67-2181Yambbovbu [Mass/Vol]1.8 mg/dL1.6 - 2.4 mg/dLOhioHealthOtheron 09-27-8891Autpgvrguvfziw and review of laboratory resultsNormalOhioHealthPOC Glucoseon 67-00-2474Illaclj [Mass/Vol]201 mg/nXPdhb50 - 99 mg/dLOhioHealthInterpretation and review of laboratory resultsAbnormalOhioHealthGlucose [Mass/Vol]143 mg/gURvis45 - 99 mg/dL OhioHealthInterpretation and review of laboratory resultsAbnormalOhioHealth Glucose [Mass/Vol]93 mg/dL65 - 99 mg/dLOhioHealthTSHon 21-87-0085Jfrmfkpsbhkyeu and review of laboratory resultsNormalOhioHealthTSH Qn2.35 m[IU]/LOhioHealth Basic Metabolic Panelon 92-91-9211Cswoc gap [Moles/Vol]11 mmol/L10 - 20 mmol/L OhioHealthCalcium [Mass/Vol]7.8 mg/dLLow8.4 - 10.2 mg/dLOhioHealthChloride [Moles/Vol]115 mmol/LHigh98 - 108 mmol/LOhioHealthCreatinine [Mass/Vol]0.90 mg/dL0.40 - 1.10OhioHealthGFR/1.73 sq M predicted among non-blacks MDRD (S/P/Bld) [Vol rate/Area]The eGFR should be used for monitoring renal function only and not for medication dosing.OhioHealthGFR/1.73 sq M.predicted CKD-EPI (S/P/Bld) [Vol rate/Area]79>=60 mL/min/1.73 w3NfeyNzncueQfuhqyp [Mass/Vol]107 mg/sNPyoj82 - 99 mg/dLOhioHealthHCO3 [Moles/Vol]22 mmol/L21 - 32 mmol/L OhioHealthInterpretation and review of laboratory resultsAbnormalOhioHealth Potassium [Moles/Vol]3.7 mmol/L3.5 - 5.1 mmol/LOhioHealthSodium [Moles/Vol]144 mmol/L135 - 145 mmol/LOhioHealthUrea nitrogen [Mass/Vol]14 mg/dL8 - 25 mg/dL OhioHealthUrea nitrogen/Creatinine [Mass ratio]15.6 mg/mgOhioHealthCBC WITH AUTO DIFFERENTIALon 35-91-3274Zslhpyvri (Bld) [#/Vol]0.08 10*3/uLOhioHealth Basophils/100 WBC (Bld)1.1 %OhioHealthEosinophils (Bld) [#/Vol]0.16 10*3/uL OhioHealthEosinophils/100 WBC (Bld)2.2 %OhioHealthErythrocyte distribution width (RBC) [Entitic vol]12.3 %11.6 - 14.8 %OhioHealthHematocrit (Bld) [Volume fraction]36.0 %36 - 46 %OhioHealthHemoglobin (Bld) [Mass/Vol]11.8 g/dLLow12 - 16 g/dLOhioHealthImmature granulocytes (Bld) [#/Vol]0.02 10*3/uLOhioHealthImmature granulocytes/100 WBC (Bld)0.30 %OhioHealthComment on above:The IG parameter is the percentage of metamyelocytes, myelocytes and promyelocytes. An immature gran ulocyte count (IG) of 1% or more suggests the possibility of infection, an IG count of 3% is very likely related to an infection.Interpretation and review of laboratory resultsAbnormalOhioHealthLymphocytes (Bld) [#/Vol]2.82 10*3/uL OhioHealthLymphocytes/100 WBC (Bld)39.6 %[facility]MCH (RBC) [Entitic mass]31.1 pg26 - 34 pgOhioHealthMCHC (RBC) [Mass/Vol]32.8 g/dL31 - 37 g/dLOhioHealthMCV (RBC) [Entitic vol]95.0 fL80 - 100 fLOhioHealthMonocytes (Bld) [#/Vol]0.45 10*3/uLOhioHealthMonocytes/100 WBC (Bld)6.3 %OhioHealthNeutrophils (Bld) [#/Vol] 3.59 10*3/uLOhioHealthNeutrophils/100 WBC (Bld)50.5 %OhioHealthNucleated RBC (Bld) [#/Vol]0.00 10*3/uLOhioHealthNucleated RBC/100 WBC (Bld) [Ratio]0.0 % [facility]ate[facility] mean volume (Bld) [Entitic vol]9.7 fL9.4 - 12.4 fLOhioHealth Platelets (Bld) [#/Vol]234 10*3/uLOhioHealthRBC (Bld) [#/Vol]3.79 10*6/uLLow OhioHealthWBC (Bld) [#/Vol]7.12 10*3/uLOhioHealthHemoglobin A1con 06-04-2020 Average glucose Estimated from glycated hemoglobin mass conc (Bld)246 mg/dLHigh 68 - 114 mg/eVAmjyBrgevwRrS0o (Bld) [Mass fraction]10.2 %High4 - 5.6 %[facility] Interpretation and review of laboratory resultsAbnormalOhioHealthNormal: 4.0% - 5.6% Increased risk for diabetes: 5.7% - 6.4% Diabetes: >= 6.5% Pediatrics: No established reference range Estimated average glucose: 68-114 mg/dLK[facility]tering Health Preble Magnesiumon 26-94-1396Eparlqpbmjpsrc and review of laboratory resultsNormal [facility]bleMagnesium [Mass/Vol]1.6 mg/dL1.6 - 2.4 mg/dLKettering Health PreblePOC Glucoseon 29-60-4969Hxwkdko [Mass/Vol]79 mg/dL65 - 99 mg/dLOhioHealthInterpretation and review of laboratory resultsNormalOhioHealthGlucose [Mass/Vol]108 mg/iQUnuf24 - 99 mg/dLOhioHealthInterpretation and review of laboratory resultsAbnormal OhioHealthGlucose [Mass/Vol]134 mg/lAEhrm03 - 99 mg/dLOhioHealthInterpretation and review of laboratory resultsAbnormalOhioHealthGlucose [Mass/Vol]118 mg/dL High65 - 99 mg/dLOhioHealthInterpretation and review of laboratory results AbnormalOhioHealthReflex Lactic Acid, Plasmaon 84-79-6368Wrxmetzjefpsru and review of laboratory resultsAbnormalOhioHealthLactate [Moles/Vol]2.1 mmol/LHigh 0.6 - 2 mmol/LOhioHealthCBC WITH AUTO DIFFERENTIALon 92-77-0014Oohvjzsji (Bld) [#/Vol]0.06 10*3/uLOhioHealthBasophils/100 WBC (Bld)0.8 %OhioMer[facility] Rita'S Medical CenterEosinophils (Bld) [#/Vol]0.11 10*3/uLOhioHealthEosinophils/100 WBC (Bld)1.4 %[facility] Erythrocyte distribution width (RBC) [Entitic vol]12.3 %11.6 - 14.8 %[facility] Hematocrit (Bld) [Volume fraction]38.8 %36 - 46 %[facility] PrebleHemoglobin (Bld) [Mass/Vol]13.1 g/dL12 - 16 g/dLOhioHealthImmature granulocytes (Bld) [#/Vol]0.02 10*3/uLOhioHealthImmature granulocytes/100 WBC (Bld)0.30 %OhioHealthComment on above:The IG parameter is the percentage of metamyelocytes, myelocytes and promyelocytes. An immature granulocyte count (IG) of 1% or more suggests the possibility of infection, an IG count of 3% is very likely related to an infection.Lymphocytes (Bld) [#/Vol]1.86 10*3/uLOhioHealthLymphocytes/100 WBC (Bld)24.1 %OhioMer[facility] Medical CenterMCH (RBC) [Entitic mass]30.8 pg26 - 34 pgOhioHealthMCHC (RBC) [Mass/Vol]33.8 g/dL31 - 37 g/dLOhioHealthMCV (RBC) [Entitic vol]91.1 fL80 - 100 fLOhioHealthMonocytes (Bld) [#/Vol]0.37 10*3/uLOhioHealthMonocytes/100 WBC (Bld)4.8 %OhioHealthNeutrophils (Bld) [#/Vol]5.29 10*3/uLOhioHealth Neutrophils/100 WBC (Bld)68.6 %OhioHealthNucleated RBC (Bld) [#/Vol]0.00 10*3/uL OhioHealthNucleated RBC/100 WBC (Bld) [Ratio]0.0 %OhioHealthPlatelet mean volume (Bld) [Entitic vol]9.7 fL9.4 - 12.4 fLOhioHealthPlatelets (Bld) [#/Vol]253 10*3/uLOhioHealthRBC (Bld) [#/Vol]4.26 10*6/uLOhioHealthWBC (Bld) [#/Vol]7.71 10*3/uLOhioHealthCOVID-19, Molecularon 01-63-6467Vteufkugippdij and review of laboratory kcuynumDaiosiSpecErzvfbVSNK-DyE-1Yyw DetectedNot DetectedOhioHealth Comment on above:This test was performed under the FDA's Emergency Use Authorization (EUA). [...] at the following links: For Healthcare Providers: https://www.fda.gov/media/142456/download For Patients: https://www.fda.gov/media/601943/download CRITICAL CAREon [id number] Hankins MD 06/03/2020 4:35 PM Critical Care Performed by: Ko Hankins MD Authorized by: Ko Hankins MD Total critical care time: 60 minutes Critical care start time: 12:35 PM Critical care end time: 06/03/2020 3:35 [...] of radiographic studies and re-evaluation of patient's condition.OhioHealthCT Foot Left Without Contraston . There appears to be a small amount of soft tissue swelling along the plantar and medial aspect of the 1st toe which may be due to a cellulitis, but this is nonspecific. There is no CT evidence of osteomyelitis. 2. There are degenerative and postsurgical changes of the ankle as described above. Wo rkstation ID: [id number], Rad In [facility] - 06/03/2020 3:31 PM EST EXAMINATION: CT [...] ligament reconstruction surgery. There appear to be atleast mild degenerative changes of the talofibular joint. There appears to be a probable ovoid 9 mmossific loose body within the anterior aspect of [...] the ankle as described above. Workstation ID: [id number]: CT scan left foot and ankle without [...] reduction techniques were achieved by using automated e xposure control and/or adjustment of mA and/or kV according to patient size and/or use of iterativereconstruction technique. FINDINGS: There is a large os [...] mild degenerative changes of the talofibular joint. Thereappears to be a probable ovoid 9 mm ossific loose body within the anterior aspect of the tibiotalarjoint recess. No acute fracture or dislocation is seen. There appears to be a small amount of soft tissue swelling along the plantar and medial aspect of the 1st toe. No osseous erosion is seen. No focal fluid density collection is identified.[facility] 7on 58-54-1825Jvbbn gap [Moles/Vol]11 mmol/L10 - 20 mmol/LOhioHealthChloride [Moles/Vol]109 mmol/LHigh98 - 108 mmol/LOhioHealth Creatinine [Mass/Vol]1.28 mg/dLHigh0.40 - 1.10OhioHealthGFR/1.73 sq M predicted among non-blacks MDRD (S/P/Bld) [Vol rate/Area]The eGFR should be used for monitoring renal function only and not for medication dosing.OhioHealthGFR/1.73 sq M.predicted CKD-EPI (S/P/Bld) [Vol rate/Area]51Low>=60 mL/min/1.73 m2 OhioHealthGlucose [Mass/Vol]288 mg/vTIfgw33 - 99 mg/dLOhioHealthHCO3 [Moles/Vol] 27 mmol/L21 - 32 mmol/LOhioHealthInterpretation and review of laboratory results AbnormalOhioHealthPotassium [Moles/Vol]3.9 mmol/L3.5 - 5.1 mmol/LOhioHealth Sodium [Moles/Vol]143 mmol/L135 - 145 mmol/LOhioHealthUrea nitrogen [Mass/Vol]16 mg/dL8 - 25 mg/dLOhioHealthUrea nitrogen/Creatinine [Mass ratio]12.5 mg/mg OhioHealthLactic Acid, Plasmaon 77-51-9642Hkcodhufghytnb and review of laboratory resultsAbnormalOhioHealthLactate [Moles/Vol]2.6 mmol/LHigh0.6 - 2 mmol/LOhioHealthOtheron 13-91-4040Mrhjj TubeHold for add-ons.OhioHealthComment on above:Auto resulted.POC Glucoseon 20-48-6421Kifrnka [Mass/Vol]288 mg/dZZsqq84 - 99 mg/dLOhioHealthInterpretation and review of laboratory resultsAbnormal [facility] W/DIFFon 47-46-7244LUV BASOPHILS0.1 10*3/uLNormal0.0-0.2The [facility] Methodist HospitalComment on above:Performed By: #### [id number] #### [facility] [address] [place] [address], USAABS IMM GRANS0.0 10*3/uLNormal0.0-0.2The [facility] Methodist HospitalComment on above:Performed By: #### 48881 #### [facility] [address] [facility] [place] [address], USAABS NEUTROPHILS7.5 10*3/uLNormal1.6-7.6The [facility] Methodist HospitalComment on above:Performed By: #### 98936 #### [facility] [address] [place] [address], USABasophils/100 WBC (Bld)0.7 %Normal0.0-1.0The [facility] Methodist HospitalComment on above:Performed By: #### 27255 #### [facility] [address] [place] [address], USAEosinophils (Bld) [#/Vol]0.2 10*3/uLNormal0.0-0.5The [facility] HospitalComment on above:Performed By: #### 77867 #### [facility] [address] [place] [address], USAEosinophils/100 WBC (Bld)1.5 %Normal0.0-6.0The [facility] Methodist HospitalComment on above:Performed By: #### 50860 #### [facility] [address] [place] [address], USAErythrocyte distribution width (RBC) [Ratio]12.0 %Normal 11.5-15.0The [facility] Methodist HospitalComment on above:Performed By: #### 82120 #### [facility] [address] [place] [address], USAHematocrit (Bld) [Volume fraction]40.4 %Ryhtil64.0-45.0The [facility] HospitalComment on above:Performed By: #### 47044 #### [facility] [address] [place] [address], USAHemoglobin (Bld) [Mass/Vol]13.5 g/hDZfvebj88.0-15.0The [facility] HospitalComment on above:Performed By: #### 41113 #### [facility] [address] [facility] [place] [place] [address], USAIMMATURE GRANS0.4 %Normal0.0-1.0The [facility] HospitalComment on above:Performed By: #### 98976 #### [facility] [address] [place] [id number], USALymphocytes (Bld) [#/Vol]2.3 10*3/uLNormal1.2-4.0The [facility] HospitalComment on above:Performed By: #### 48083 #### [facility] [address] [place] [address], [facility] SAND[facility] MEDICAL CENTERLymphocytes/100 WBC (Bld)21.5 %Zmxsle57.0-45.0The [facility] HospitalComment on above:Performed By: #### 74603 #### [facility] [address] [place] [address], [facility] (RBC) [Entitic mass]29.9 zhKuocfp63.0-33.0The [facility] HospitalComment on above:Performed By: #### [id number] #### [facility] [address] [place] [address], [facility] S[facility] MEDICAL CENTERMCHC (RBC) [Mass/Vol]33.4 g/zLAbojtt19.0-35.0The [facility] HospitalComment on above:Performed By: #### 05500 #### [facility] [address] [place] [address], [facility] SAND[facility] MEDICAL CENTERMCV (RBC) [Entitic vol]89.6 dARjpugo88.0-98.0The [facility] HospitalComment on above:Performed By: #### 72081 #### [facility] [address] [place] [address], USAMonocytes (Bld) [#/Vol]0.6 10*3/uLNormal0.1-1.0The [facility] HospitalComment on above:Performed By: #### 87589 #### [facility] [address] [place] [address], USAMONOS5.6 %Normal5.0-12.0The [facility] HospitalComment on above:Performed By: #### 39472 #### [facility] [address] [place] [address], USANeutrophils/100 WBC (Bld)70.3 %Nwreve40.0-72.0The [facility] HospitalComment on above:Performed By: #### 02679 #### [facility] [address] [place] [address], USANucleated RBC/100 WBC (Bld) [Ratio]0 %Normal0-0The [facility] HospitalComment on above:Performed By: #### 53980 #### [facility] [address] [place] [address], USAPLAT JFM206 10*3/iBDoit464-224Wzn [facility] HospitalComment on above:Performed By: #### 64731 #### [facility] [address] [place] [address], USARBC (Bld) [#/Vol]4.51 10*6/uLNormal3.80-5.00The [facility] HospitalComment on above:Performed By: #### 75498 #### [facility] [address] [place] [address], USAWBC (Bld) [#/Vol]10.63 10*3/uLHigh4.00-10.60The [facility] HospitalComment on above:Performed By: #### 07890 #### [facility] [address] [place] [address], USACOMP METABOLIC PANELon 20-64-4081Jflxpyd [Mass/Vol]4.2 g/dL Normal3.5-5.7The [facility] HospitalComment on above:Performed By: #### 73228 #### [facility] [address] [place] [address], USAALKALINE TMZJNV91 IU/UPdugrs07-160Fwm [facility] HospitalComment on above:Performed By: #### 58077 #### [facility] [address] [place] [address], USAALT [Catalytic activity/Vol]6 U/LLow7-52The [facility] HospitalComment on above:Performed By: #### 92406 #### [facility] [address] [place] [address], USAAST [Catalytic activity/Vol]9 U/JGqs91-45Phy [facility] HospitalComment on above:Performed By: #### 03788 #### [facility] [address] [place] [address], USABilirubin [Mass/Vol]0.3 mg/dLNormal0.3-1.0The [facility] HospitalComment on above:Performed By: #### 39459 #### [facility] [address] [place] [address], USACalcium [Mass/Vol]9.4 mg/dLNormal8.6-10.3The [facility] HospitalComment on above:Performed By: #### 50412 #### [facility] [address] [place] [address], USAChloride [Moles/Vol]104 mmol/ZVqsika54-662Xzq [facility] HospitalComment on above:Performed By: #### 53984 #### [facility] [address] [place] [address], USACO2 [Moles/Vol]25 mmol/FEvnsls51-72Qva [facility] HospitalComment on above:Performed By: #### 31803 #### [facility] [address] [place] [address], USACreatinine [Mass/Vol]0.89 mg/dLNormal0.60-1.20The [facility] HospitalComment on above:Performed By: #### 53676 #### [facility] [address] [place] [address], USAGFR/1.73 sq M predicted among blacks MDRD (S/P/Bld) [Vol rate/Area]mL/min/{1.73_m2}Normal>60The [facility] Comment on above:Performed By: #### 03653 #### [facility] [address] [place] [address], USAGFR/1.73 sq M predicted among non-blacks MDRD (S/P/Bld) [Vol rate/Area]mL/min/{1.73_m2}Normal>60The [facility] Comment on above:Performed By: #### 11074 #### [facility] [address] [place] [address], USAGlucose [Mass/Vol]155 mg/dRDsvf72-128Chj [facility] HospitalComment on above:Performed By: #### 36628 #### [facility] [address] [place] [address], USAPotassium [Moles/Vol]4.3 mmol/LNormal3.5-5.1The [facility] HospitalComment on above:Performed By: #### 83983 #### [facility] [address] [place] [address], USAProtein [Mass/Vol]7.2 g/dLNormal6.0-8.3The [facility] HospitalComment on above:Performed By: #### 41007 #### [facility] [address] [place] [address], USASodium [Moles/Vol]138 mmol/CDrbdms665-476Cub [facility] HospitalComment on above:Performed By: #### 63814 #### [facility] [address] [place] [address], USAUrea nitrogen [Mass/Vol]24 mg/dLNormal7-25The [facility] HospitalComment on above:Performed By: #### 78457 #### [address] [address], USACT LUMBAR SPINE WO CONTRASTon 70-64-0290MW LUMBAR SPINE WO CONTRASTUnMercy Health Defiance Hospital Department of Radiology [address] [place] [id number] Patient Name: ADDIE JEAN BAPTISTE : 1975 Sex: F Age: Race: White Pt. Location: [facility] Patient Status: E Ordered Date: [...] achievable Electronically signed: Carie Sanchez. Transcribed by: [email or web address], User Resident: Electronically Signed by: CARIE SANCHEZ @ 08/10/2019 08:35 PMNMcKitrick HospitalComment on above:Order Comment: Spinal StenosisKEPPRA ILon 25-02-5339TIJcpglcZqjPremier Health [facility] Comment on above:Result Comment: Test Performed by [employer] [address] [place] [address] - Released 08/10/2019 22:51AYLZNC25 ug/mLNMcKitrick HospitalComment on above:Result Comment: A reference range for Keppra has [...] between serum concentrations and toxicity is not known.LITHIUM on 58-98-7169Mzmpvfv [Moles/Vol]NormalThe [facility] Comment on above:Result Comment: Test Performed by [employer] [facility] [place] [address] - Released 08/10/2019 22:35 Result changed by IF on 08/10/2019 22:35. The previous value was Test Performed by [employer] [address] [place] [address] [phone]..[place] [Moles/Vol]mmol/LLow0.6-1.2The [facility] POC URINE PREGNANCYon 76-85-5232Hyno HCG ( test) Ql (U)NegativeNormal NEGATIVEThe [facility] Methodist HospitalComment on above:Result Comment: Performed in Emergency Department.Performed By: #### 01015 #### [facility] [address] [place] [address], USATOX PANEL URINEon 53-74-747001 THCNegativeNormalNEGATIVEThe [facility] Methodist HospitalComment on above:Performed By: #### 82152 #### [facility] [address] [place] [address], USABARBITURATESNegativeNormalNEGATIVEThe [facility] Methodist HospitalComment on above:Performed By: #### 89840 #### [facility] [address] [place] [address], USABenzodiazepines Ql (U)NegativeNormalNEGATIVEThe [facility] HospitalComment on above:Performed By: #### 96668 #### [facility] [address] [place] [address], USACocaine Ql (U)NegativeNormalNEGATIVEThe [facility] Methodist HospitalComment on above:Performed By: #### 66528 #### [facility] [address] [place] [address], USAMethadone Ql (U)NegativeNormalNEGATIVEThe [facility] HospitalComment on above:Performed By: #### 40022 #### [facility] [address] [place] [address], USAMONO AMPHETNegativeNormalNEGATIVEThe [facility] HospitalComment on above:Performed By: #### 88923 #### [facility] [address] [place] [address], USAOpiates Ql (U)NegativeNormalNEGATIVEThe [facility] Methodist HospitalComment on above:Performed By: #### 27366 #### [facility] [address] [place] [address], USAPhencyclidine Ql (U)NegativeNormalNEGATIVEThe [facility] HospitalComment on above:Performed By: #### 42025 #### [facility] [address] [place] [address], USAPROPOXYPHENENegativeNormalNEGATIVEThe [facility] HospitalComment on above:Performed By: #### 66902 #### [facility] [address] [place] [address], USATRICYCLICSPositiveAbnormalNEGATIVEThe [facility] Methodist HospitalComment on above:Performed By: #### 14159 #### [facility] [address] [place] [address], USAVALPROIC ACIDon 75-28-2586BHBNTIIQ ACID (DEPAKOTE)57 mcg/mL Mzd97-673Kgl [facility] HospitalComment on above:Performed By: #### 72411 #### [facility] [address] [place] [address], USACHEST 2 VIEW PA AND LATon 97-72-1968CALBG 2 VIEW PA AND LAT Patient Name: ORGAN, ADDIE STUDY: CHEST 2 VIEW PA AND LAT; 04/07/2019 7:13 am INDICATION: Pneumothorax. COMPARISON: 04/06/2019 ACCESSION NUMBER(S): [id number] ORDERING CLINICIAN: RADHA STEELE FINDINGS: There is [...] pacemaker/ICD implant Electronically signed by: MK HERNANDEZ MDGeisinger Medical CenterDischarge Fulzmht4bh 10-45-0833Nvjceatgt Scvitnc3Rukrbqghk Orders: Problem List: Additional Dx: AICD (automatic cardioverter/defibrillator) present: Onset Date: 07-Apr-2019, Catalog Name: Presence [...] dual chamber ICD upgrade currently with a Hexagram 49 [id number] [address] MRI XT DR device. See full [...] 3 month follow up with EP in [facility] office, CXR, and device check. Provider FINAL REVIEW of Orders: Final Review: Final Review of Medication Reconciliation and Orders Completedby LYLE Reviewing ProviderMARY Baez at 07-Apr-2019 13:43:42 Appointments: Follow-Up Appointment 01: Physician/Dept/Kyle [facility] office Reason for Referralwound check Scheduled Date/Phzf58-Uaf-2468 02:30 Phone [phone] Follow-Up App[facility]ment [facility] Reason for Referralchest X-Ray Scheduled Date/Rltg60-Vdl-1517 02:15 Phone [phone] Follow-Up Appointment 03: [facility] Reason for Referraldevice check Scheduled Date/Ouyc64-Bbu-7859 03:00 Phone [phone] Follow-Up Appointment 04: Physician/Dept/ServiceDr. Noble Scheduled Date/Jcjm95-Ikh-0478 03:40 Phone [phone] Electronic Signatures: Radha Steele (ARCHEOLOGY FACULTY MEMBER-NAVAL ENGINEER) (Signed 07-Apr-2019 13:51) Authored: Discharge Orders, Hospital Course (Home Care/Gold Form), Provider FINAL REVIEW of Orders, Gold Form - Account Review Specialist Summary Ida Brand (CN) (Signed 07-Apr-2019 13:50) Authored: Appointments Last Updated: 07-Apr-2019 13:51 by Radha Steele (ARCHEOLOGY FACULTY MEMBER-NAVAL ENGINEER)[facility]er Medical CenterGLUCOSE-POCTon 43-64-6686Klxdfwz [Mass/Vol]150 mg/oFUcmh45 - 99[facility]al HealthComment on above:Performed By: #### CBC #### [address] [address]Ffxfjvf [Mass/Vol]205 mg/yTZbiz08 - 99[facility] Comment on above:Performed By: #### CBC #### [address] [address]Hdhnnyb [Mass/Vol]365 mg/dVSkmb50 - 99[facility] Comment on above:Performed By: #### CBC #### [address] [address]VKEES METABOLIC PANELon 16-50-5264Exrdq gap [Moles/Vol]17 mmol/L Qcpkjj70 - 20[facility]al HealthComment on above:Performed By: #### BMP #### [address] [address]Ljsqkzo [Mass/Vol]8.8 mg/dLNormal8.6 - 10.3[facility]al HealthComment on above:Performed By: #### BMP #### [address] [address]Nyzmzabu [Moles/Vol]97 mmol/LLow98 - 107[facility] Comment on above:Performed By: #### BMP #### [address] [address]Wkkpvddifv [Mass/Vol]0.80 mg/dLNormal0.50 - 1.05[facility] ParkwayComment on above:Performed By: #### BMP #### [address] [address]DCL-OCHDISE AM.>60Normal>60UH [facility] ParkwayComment on above:Result Comment: CALCULATIONS OF ESTIMATED GFR ARE PERFORMED USING THE MDRD STUDY EQUATION FOR THE IDMS-TRACEABLE CREATININE METHODS. CLIN CHEM 2007;53:766-72Performed By: #### BMP #### [address] [address]GZU-VGE AM.>60Normal>60UH [facility] ParkwayComment on above:Performed By: #### BMP #### [address] [address]Iqkcybv [Mass/Vol]429 mg/tVCfph85 - 99[facility] Comment on above:Performed By: #### BMP #### [address] [address]SEL6 (Bld) [Moles/Vol]21 mmol/AUwqxcp15 - 32[facility] ParkwayComment on above:Performed By: #### BMP #### [address] [address]Kgdpjstwx [Moles/Vol]3.8 mmol/LNormal3.5 - 5.3UH [facility] ParkwayComment on above:Performed By: #### BMP #### [address] [address]Ekwguz [Moles/Vol]131 mmol/HRbd193 - 145[facility] Comment on above:Performed By: #### BMP #### [address] [address]Aqfg nitrogen [Mass/Vol]16 mg/dLNormal6 - 23UH [facility] ParkwayComment on above:Performed By: #### BMP #### [address] [address]HQGgc 18-93-4056Yxertnsecbj distribution width (RBC) [Ratio]11.7 %Spyhyc69.5 - 14.5UH [facility] ParkwayComment on above:Performed By: #### CBC #### [address] [address]Zztsxqians (Bld) [Volume fraction]40.2 %Jjfepq24.0 - 46.0UH [facility] ParkwayComment on above:Performed By: #### CBC #### [address] [address]Pvmykrqxoj (Bld) [Mass/Vol]13.9 g/bQAcwvru37.0 - 16.0[facility] ParkwayComment on above:Performed By: #### CBC #### [address] [address]ROGR (RBC) [Mass/Vol]34.6 g/hMPsvssl57.0 - 36.0[facility] ParkwayComment on above:Performed By: #### CBC #### [address] [address]ASL (RBC) [Entitic vol]88 wUPjojoa37 - 100UH [facility] ParkwayComment on above:Performed By: #### CBC #### [address] [address]Opwpetwgm (Bld) [#/Vol]306 10*3/fXZpxugg547 - 450UH [facility] ParkwayComment on above:Performed By: #### CBC #### [address] [address]RND (Bld) [#/Vol]4.57 x10E12/LNormal4.00 - 5.20[facility] ParkwayComment on above:Performed By: #### CBC #### [address] [address]GDE (Bld) [#/Vol]9.4 10*3/uLNormal4.4 - 11.3UH [facility] ParkwayComment on above:Performed By: #### CBC #### [address] [address]OEBLV 2 VIEW PA AND LATon 55-72-2719GDROS 2 VIEW PA AND LATMRN: [id number] Patient Name: ORGAN, ADDIE STUDY: TH CHEST 2 VIEW PA AND LAT; 04/06/2019 8:05 am INDICATION: SVT, preop implant. COMPARISON: None. ACCESSION NUMBER(S): [id number] ORDERING CLINICIAN: ROSALIA NOBLE FINDINGS: CARDIOMEDIASTINAL SILHOUETTE: [...] volume. No focal infiltrate. Electronically signed by: Marlyn COTTERVail Health HospitalCOAGULATION SCREENon 38-11-9421fYRV Coag (Bld) [Time]29 pVuctxr53 - 38UH [facility] ParkwayComment on above:Result Comment: THE APTT IS NO LONGER USED FOR MONITORING UNFRACTIONATED HEPARIN THERAPY. FOR MONITORING HEPARIN THERAPY, USE THE HEPARIN ASSAY.Performed By: #### COAGS #### [address] [address]KSN Coag (PPP) [Relative time]1.0 {INR}Normal0.9 - 1.1UH [facility] ParkwayComment on above:Performed By: #### COAGS #### [address] [address]GI Coag (PPP) [Time]10.8 sNormal9.7 - 12.7UH [facility] ParkwayComment on above:Performed By: #### COAGS #### [address] [address]Pemzg Progress Note-Electrophysiologyon 86-04-4938Luefi Progress Note-ElectrophysiologyService: Electrophysiology Assessment and Plan: Assessment: Electrophysiology Study [...] of infection. The patient should call the knifeman immediately if symptoms recur, or for any problems. The patient and mother(message left on phone with HIPPA consent) have been instructed accordingly. 2.Follow up with [facility] office in seven days for post-operative wound assessment. 3.Follow up with Device Clinic in twelve weeks for routine device analysis and reprogramming if necessary. Remote monitoring will be instituted and released from [facility] to [facility] as per patient request. Procedures: Complete electrophysiologic [...] was placed. 11.A dual-chamber cardioverter defibrillator (Med [id number] #[id number]) was attached to the leads and implanted. [...] 6 Fr high RA, CS Bpst Sci [place] new access Right femoral vein 6 Fr His-bundle (right side) Eddy Sci Vikingnew access Right femoral vein 6 Fr RV apex, RVOT [facility] [facility] [place] new access Complications: The patient tolerated the procedure without any complications or incident. EBL 0 cc Specimens obtained: No Prepared and signed by. Electronic Signatures: Rosalia Noble) (Signed 06-Apr-2019 16:32) Authored: Service, Objective Data, Assessment and Plan, Signature/Cosignature/Attestation Last Updated: 06-Apr-2019 16:32 by Rosalia Noble)[facility] GLUCOSE-POCTon 95-96-8335Bpcgcgx [Mass/Vol]409 mg/rURqif0114 Ayala StreetComment on above:Performed By: #### CBC #### [address] [address]Mchtqza [Mass/Vol]136 mg/kDXofk24[address] Comment on above:Performed By: #### CBC #### [address] [address]Wytkhzm [Mass/Vol]167 mg/sUFula[address] Comment on above:Performed By: #### CBC #### [address] [address]Gzpgtto [Mass/Vol]218 mg/vZKcuo8014 [address] Comment on above:Performed By: #### CBC #### [address] [address]Mbysruk [Mass/Vol]338 mg/vLYcij4714 [address] Comment on above:Performed By: #### GLUPO #### [address] [address]Pjvdoor [Mass/Vol]415 mg/kLJono8[address] Comment on above:Performed By: #### GLUPO #### [address] [address]OPL,SERUM QUALITATIVEon 60-78-4229KKN,SERUM QUALITATIVENegative NormalNegativePeak View Behavioral HealthComment on above:Performed By: #### HCGS #### [address] [address]Xbvxyuu Profile - Preop v2on 75-70-1934Uweljus Profile - Preop v0Sexvrml: Initial Info: How to be AddressedCathy Spoken Language PreferredEnglish Source of Informationpatient; family Are you currently using the Personal Electronic Health Record or MotivappsKNOX COMMUNITY [facility]OSPITALno Are you interested in learning more about [facility] for the management of your healthnot at this time Stated Reason for AdmissionEPS Primary Contact Name and NumberSharon Organ [phone] Limitations on Visitors/Phone Callsnone Patient Belongingsremains with patient Patient Belongings Remaining with Patientcell phone/electronics; clothing Medications Brought to Hospitalyes General Health: Weight in kg91.1 kilogram(s) Weight in uam909.8 pound(s) Weight Methodstated Scale Typestanding Height in cm157.4 centimeter(s) Height in feet5 feet Height in inches2 inch(es) Height Methodstated BMI (kg/m2)36.771 square meter Patient or Family Member Reaction to Anesthesiano previous reaction Equipment Currently Used at Homecane, quad/straight Blood Avoidance/Restrictionsnone Previous Transfusion Reactionno Health Mgmt: Symptoms/Conditions Managed at [facility] Are You Currently Breastfeedingno Barriers to Managing Healthnone Relationship/Environ: Resource/Environmental Concernsnone Services Anticipated at Transitionnone Lives Withspouse Living Arrangementshouse Anticipated Transition Tojulian Substance: Current or Former Substance Use never: [...] Learning Preferencesindividual instruction Cultural Considerationsnone Developmental Considerationsnone Mandaen Considerationsnone Other learner availableno Falls RiskPatient location auto qualifies him/her for HIGH RISK. Are there any cultural, spiritual, tenriism practices/values/needs that are important for us to knowno Do you want a visit/item from [facility] Would you like your Cath Lab Technologist/Pharmaceutical Analyst notifiedno Pain Scalenumerical 0-10 Pain Scale Educationteaching [...] Drug, Other, Active Electronic Signatures: Kristi Soriano (RN) (Signed 06-Apr-2019 07:39) Authored: Profile, Additional Information Last Updated: 06-Apr-2019 07:39 by Kristi Soriano (RN)[facility] Medical CenterPreop Checkliston 60-18-9002Yvtws ChecklistPreop Checklist: Preop Checklist: Arrival [id number] Arrival Time06:38 Temperature C36.1 degrees C Temperature F96.9 degrees F Heart Rate60 beats per minute Respiratory Rate18 breath per minute Blood Pressure Qamifvgx65 mm/Hg Blood Pressure Uxwhirzel04 mm/Hg NPO [id number] 23:00 ID Band Onyes Allergy Bandyes H&P Completeyes EKG Performedyes Chest X-Ray Performedyes HCG Urine TestN/A Chlorhexadine Bath Givennot applicable Nasal Antiseptic Appliednot applicable Hair Washednot applicable Soap and water bath with hair shampoo the night before surgerynot applicable Hat placed on infant prior to transportnot applicable SCD's Appliednot applicable FARTUN Hose Appliednot ordered Denturesat home Prostheticsnot applicable Hearing Aidsnot applicable Valuables Securednot applicable Glasses / Contactsnot applicable Electronic Signatures: Kristi Soriano (RN) (Signed 06-Apr-2019 07:42) Authored: Preop Checklist Last Updated: 06-Apr-2019 07:42 by Kristi Soriano (JAEL)[facility] CenterUA MICROSCOPICon [id number]+ /[facility] HOSPITALAbCancer Treatment Centers of America Comment on above:Performed By: #### CBC #### [address] [address]JOOJR7+ /LPFNoVail Health HospitalComment on above: Performed By: #### CBC #### [address], [place] [address]CIS2 /[facility] HOSPITALNormal0-5[facility] Behavioral HealthComment on above: Performed By: #### CBC #### [address], [place] [address]OLPUMBWH EPITH. CELLS3 /[facility] HOSPITALNoVail Health HospitalComment on above:Performed By: #### CBC #### [address] [address]ODC7 /HPFAbnormal0-5[facility] View Behavioral HealthComment on above: Performed By: #### CBC #### [address] [address]WVMXDXVSNDei 04-49-2673Wugfmngzyk (U)CLEARNormalCLEARPeak View Behavioral HealthComment on above:Performed By: #### UA #### [address] [address]Kseusvzqu (U) [Mass/Vol]NegativeNormalNEGATIVEPeak View Behavioral HealthComment on above:Performed By: #### UA #### [address] [address]LQHYKMfmqpmzvYejyaeBREGVPXKCT [facility] Medical CenterComment on above:Performed By: #### UA #### [address] [address]Uxijo (U)YELLOWNormalSTRAW,YELLOWPeak View Behavioral HealthComment on above:Performed By: #### UA #### [address] [address]Xbnzddh [Mass/Vol]>=500 (3+)AbnormalNEGATIVEPeak View Behavioral HealthComment on above:Performed By: #### UA #### [address] [address]Vqtwtvo Ql (U)NegativeNormalNEGChildren's Hospital of New Orleans Comment on above:Performed By: #### UA #### [address] [address]Woaudtczs esterase Test strip Ql (U)TRACEAbnormcaNEGChildren's Hospital of New OrleansComment on above:Performed By: #### UA #### [address] [address]Qmtqady Ql (U)PositiveAbRedington-Fairview General Hospital Comment on above:Performed By: #### UA #### [address] [address]cE (Bld)5.2Ebkjdw7.0 - 8.0[facility] Behavioral HealthComment on above:Performed By: #### UA #### [address] [address]Udmnaqo (U) [Mass/Vol]NegativeNormalNEGATIVEPeak View Behavioral HealthComment on above:Performed By: #### UA #### [address] [address]Ksnjyill gravity (U) [Rel density]1.068Jqytdq4.005 - 1.035Pe[facility] View Behavioral HealthComment on above:Performed By: #### UA #### [address] [address]Wvocisysasyp Qn (U)<2.7Xwxiui2.0 - 1.9[facility] Comment on above:Performed By: #### UA #### [address] [address]Qgebjgtezk Studieson 88-81-4494Blqbcca [Mass/Vol]9.8 mg/dL 8.2-10.2FSt. Vincent Hospital CtrChloride [Moles/Vol]98 mmol/L95-114 [facility] CtrCO2 [Moles/Vol]19.7 mmol/LLow22.0-30.0[facility] CtrCreatinine [Mass/Vol]0.88 mg/dL0.44-1.03[facility] CtrGFR/1.73 sq M predicted among non-blacks MDRD (S/P/Bld) [Vol rate/Area]mL/min/{1.73_m2}[facility] CtrGFR/1.73 sq M.predicted MDRD (S/P/Bld) [Vol rate/Area]mL/min/{1.73_m2}[facility] Comment on above:GFR estimated reference range: According to KDOQI guidelines, <60 ml/min/1.73m2 is sufficient todiagnose a patient with chronic kidney disease.Glucose [Mass/Vol]436 mg/hQAjdm34-750QpunggzjbPromedica Flower Hospital Ctr Comment on above:ADA recommended reference range Random Glucose Reference Range is dependent on time and content of last meal. Glucose of more than 200 mg/dL in a nonstressed, ambulatory subject supports the diagnosis of Diabetes Mellitus.Pharmacy Creatinine Clearance (ChemN/AFSt. Vincent Hospital CtrPotassium [Moles/Vol]4.3 mmol/L3.5-5.1FSt. Vincent Hospital CtrSodium [Moles/Vol]134 mmol/BJrv608-713AxqctcdfrPromedica Flower Hospital Ctr Urea nitrogen [Mass/Vol]13 mg/dL9-23[facility] CtrLaboratory Studieson 62-51-0080Zuvoccf [Mass/Vol]148 mg/dLPromedica Flower Hospital Ctr Comment on above:Random Glucose Reference Range is dependent on time and content of last meal. Glucose of more than 200 mg/dL in a nonstressed, ambulatory subject supports the diagnosis of Diabetes Mellitus.Basophils (Bld) [#/Vol]0.1 10*3/uL0.0-0.2FSt. Vincent Hospital CtrBasophils/100 WBC (Bld)0.4 % [facility] CtrEosinophils (Bld) [#/Vol]0.2 10*3/uL0.0-0.45 [facility] CtrEosinophils/100 WBC (Bld)1.6 %[facility] CtrErythrocyte distribution width (RBC) [Ratio]12.7 %11.9-15.3FSt. Vincent Hospital CtrHematocrit (Bld) [Volume fraction]33.9 %Low34.0-46.4 [facility] CtrHemoglobin (Bld) [Mass/Vol]11.5 g/dLLow11.8-15.4 [facility] CtrLymphocytes (Bld) [#/Vol]3.2 10*3/uL1.00-4.8 [facility] CtrLymphocytes/100 WBC (Bld)25.2 %[facility] CtrMCH (RBC) [Entitic mass]31.2 pg24.7-34.3FSt. Vincent Hospital CtrMCHC (RBC) [Mass/Vol]34.0 g/dL32.0-35.0[facility] CtrMCV (RBC) [Entitic vol]92.0 cZ99-025LazhugarxPromedica Flower Hospital CtrMonocytes (Bld) [#/Vol]0.6 10*3/uL0.0-0.8[facility] CtrMonocytes/100 WBC (Bld) 4.3 %[facility] CtrNeutrophils (Bld) [#/Vol]8.7 10*3/uLHigh 1.8-7.7FSt. Vincent Hospital CtrNeutrophils/100 WBC (Bld)68.5 %[facility] CtrNucleated RBC/100 WBC (Bld) [Ratio]0.0 %0-0.5FSt. Vincent Hospital CtrPlatelet mean volume (Bld) [Entitic vol]7.3 fL6.3-10.7 [facility] CtrPlatelets (Bld) [#/Vol]297 10*3/bF723-946NjppiuxdnPromedica Flower Hospital CtrRBC (Bld) [#/Vol]3.68 10*6/uL3.60-5.00[facility] CtrWBC (Bld) [#/Vol]12.7 10*3/uLHigh4.5-11.0[facility] CtrGlucose [Mass/Vol]Glu2: cleaned meterPromedica Flower Hospital CtrLaboratory Studieson 71-20-0352Vzyudhn [Mass/Vol]Will notify /ShellySt. Vincent Hospital CtrAlbumin [Mass/Vol]3.0 g/dLLow3.2-5.5FSt. Vincent Hospital Ctr Albumin/Globulin [Mass ratio]1.1 {ratio}[facility] CtrALP [Catalytic activity/Vol]68 U/M70-47NtbtqpmbdPromedica Flower Hospital CtrALT No additional P-5'-P [Catalytic activity/Vol]12 U/O43-72JaplqnhnaPromedica Flower Hospital CtrAST [Catalytic activity/Vol]17 U/I21-84EifkoczdqPromedica Flower Hospital Ctr Bilirubin [Mass/Vol]0.6 mg/dL0.3-1.2FSt. Vincent Hospital CtrCholesterol [Mass/Vol]123 mg/dRSvd769-390HzrbrzqxcPromedica Flower Hospital CtrComment on above:Chol less than 200 mg/dl low risk Chol 201-239 mg/dl borderline risk Chol 240 mg/dl and greater high riskCholesterol in HDL [Mass/Vol]51 mg/dL35-85 [facility] CtrComment on above:HDL CHOL ATP-III CLASSIFICATION Cardiovascular Risk HDL > or equal to 60 mg/dL LOW HDL < 40 mg/dL HIGHCholesterol in LDL [Mass/Vol]57 mg/dL0-100[facility] CtrComment on above:LDL ATP III CLASSIFICATION LDL less than 100 mg/dL Optimal LDL 100-129 mg/dL Near or above optimal LDL 130-159 mg/dL Borderline high LDL 160-189 mg/dL High LDL greater than 189 mg/dL Very highCholesterol in VLDL [Mass/Vol]15 mg/dL [facility] CtrCholesterol.total/Cholesterol in HDL [Mass ratio] 2.4 {ratio}[facility] CtrGlobulin (S) [Mass/Vol]2.7 g/dL [facility] CtrProtein [Mass/Vol]5.7 g/dLLow6.1-7.9[facility] CtrTriglyceride [Mass/Vol]75 mg/oU67-680OojkaucxwPromedica Flower Hospital CtrComment on above:TRIG ATP III CLASSIFICATION TRIG less than 150 mg/dL Normal TRIG 150-199 mg/dL Borderline high TRIG 200-500 mg/dL High TRIG greater than 500 mg/dL Very high Standard traceable to the Center for Disease Conrtrol and Prevention (CDC) test method.Laboratory Studieson 13-21-9807Wfguswd [Moles/Vol]1.4 mmol/LFSt. Vincent Hospital CtrCK [Catalytic activity/Vol]35 U/V04-458XoatpbzvpPromedica Flower Hospital CtrINR Coag (PPP) [Relative time]1.0 {INR}[facility] Comment on above:INR Therapeutic Range A) Pre- and Peroperative OAT started two weeks before surgery. NOT HIP SURGERY: 1.5 - 2.5 HIP SURGERY: 2 - 3 B) Primary and secondary prevention of venous THROMBOSIS: 2 - 3 C) Active venous thrombosis, pulmonary embolism and prevention of recurrent venous thrombosis: 2 - 3 D) Prevention of arterial thromboembolism including patients with mechanical heart valves: 3 - 4.5Prolactin [Mass/Vol]6.20 ng/mL3.34-26.72[facility] CtrPT Coag (PPP) [Time]11.0 s9.0-12.9 [facility] CtrTroponin I.cardiac [Mass/Vol]ng/mL0-0.02[facility] CtrComment on above:KEISHA SD Cut off value > or equal to 0.03 ng/mL in conjunction with clinical conditions of myocardial infarction. (www.escardio.org/guidelines)Amphetamines Ql (U)NegativePromedica Flower Hospital CtrBarbiturates Ql (U)NegativePromedica Flower Hospital Ctr Benzodiazepines Ql (U)NegativePromedica Flower Hospital CtrBilirubin Ql (U) NegativePromedica Flower Hospital CtrCannabinoids Screen Ql (U)Negative [facility] CtrComment on above:These are unconfirmed results and should not be used for legal purposes. Drug Cut-Off Concentration: AMPH 1000 ng/mL JULIANNA 200 ng/mL ALICE 200 ng/mL COCM 300 ng/mL OP 300 ng/mL PCP 25 ng/mL THC 20 ng/mLClarity Refractometry automated (U)[facility] CtrCocaine Ql (U)[facility] CtrColor (U)YellowPromedica Flower Hospital CtrGlucose Auto test strip (U) [Mass/Vol]500 mg/dLHighPromedica Flower Hospital CtrHCG ( test) Ql (U)[facility] CtrHemoglobin Auto test strip Ql (U)[facility] CtrKetones (U) [Mass/Vol][facility] CtrLeukocyte esterase Auto test strip Ql (U)[facility] CtrNitrite Ql (U)[facility] CtrOpiates Ql (U)[facility] CtrpH (U)6.0 [pH]5.0-9.0[facility] Phencyclidine Ql (U)[facility] CtrProtein (U) [Mass/Vol] [facility] CtrSpecific gravity (U) [Rel density]1.020 1.001-1.030[facility] CtrUrobilinogen (U) [Mass/Vol]Normal mg/dL [facility] CtrMicrobiology Studieson 99-29-7141Hvxbqjlauyjmuf aureusStaphylococcus aureusPromedica Flower Hospital CtrBASIC METABOLIC PANELon 17-76-0676Rctlcdq mass aaml485 mg/dLCritically inbo56-378TyphywokCarbon County Memorial Hospital on above:Order Comment: CALLED ER 06/25/2018, 15:09, KJD, Called with verbal read back by Romeo Castillo.Result Comment: RESULTS REPEATED AND CONFIRMEDPerformed By: #### BASIC #### [address] [address] Anion gap molar conc15.6 mmol/AZbbpot01-87IzctflccCarbon County Memorial Hospital on above:Order Comment: CALLED ER 06/25/2018, 15:09, KJD, Called with verbal read back by Romeo Castillo.Performed By: #### BASIC #### [address] [address] Calcium mass conc9.8 mg/dLNormal8.4-10.2MSageWest Healthcare - Riverton on above:Order Comment: CALLED ER 06/25/2018, 15:09, KJD, Called with verbal read back by Romeo Castillo.Performed By: #### BASIC #### [address] [address] CO2 molar conc25.0 mm/YpFrehpi46.0-30.0[facility] on above:Order Comment: CALLED ER 06/25/2018, 15:09, KJD, Called with verbal read back by Romeo Castillo.Performed By: #### BASIC #### [address] [address] Urea nitrogen mass conc11 mg/dLNormal7-22[facility] on above:Order Comment: CALLED ER 06/25/2018, 15:09, KJD, Called with verbal read back by Romeo Castillo.Performed By: #### BASIC #### [address] [address] Creatinine mass conc0.70 mg/dLNormal0.70-1.20[facility] on above:Order Comment: CALLED ER 06/25/2018, 15:09, KJD, Called with verbal read back by Romeo Castillo.Performed By: #### BASIC #### [address] [address] GFR/1.73 sq M predicted among non-blacks MDRD vol rate/area (S/P/Bld)98 mL/min/1.73 x7Otkocx>60MeHot Springs Memorial [facility] Comment on above:Order Comment: CALLED ER 06/25/2018, 15:09, KJD, Called with verbal read back by Romeo Castillo.Result Comment: Reference Range: 59 to 44 - Mild to [...] OR very young -Races other than or -Citizen Of [place] -People with acute illnesses, amputations, or acute kidney failure. Estimated GFR should be interpreted in clinical context and an alternative method such as a timed urine collection for creatinine clearance used to verify questionable results. (Ref. National Kidney Foundation 2015)Performed By: #### BASIC #### [address] [address] Chloride molar conc94 mmol/WXaf990-065CfooxvrtHot Springs Memorial Hospital - ThermopolisComascension standish hospital on above:Order Comment: CALLED ER 06/25/2018, 15:09, KJD, Called with verbal read back by Romeo Castillo.Performed By: #### BASIC #### [address] [address] Potassium molar conc4.1 mmol/LNormal3.5-5.0MeHot Springs Memorial Hospital - ThermopolisComascension standish hospital on above:Order Comment: CALLED ER 06/25/2018, 15:09, KJD, Called with verbal read back by Romeo Castillo.Performed By: #### BASIC #### [address] [address] Sodium molar itne918 mmol/NPpw844-630GrlkvzdcCarbon County Memorial Hospital on above:Order Comment: CALLED ER 06/25/2018, 15:09, KJD, Called with verbal read back by Romeo Castillo.Performed By: #### BASIC #### [address] [address] CARP1 0 HR DRAWon 07-90-4056Dpvmalbc I.cardiac mass conc ng/mLNormal0.012-0.120[facility] on above:Order Comment: CALLED ER 06/25/2018, 15:09, KJD, Called with verbal read back by Romeo Castillo.Result Comment: REFERENCE RANGE IS 0.012 - 0.120 ng/ml cTnI - The cutoff of 0.120 ng/ml is recommended for diagnosis of AMI, yielding optimal performance of 95% sensitivity and 93% specificity.Performed By: #### CTP0 #### [address] [address] CARP1 3 HR DRAWon 10-89-3500Dflllniw I.cardiac mass conc ng/mLNormal0.012-0.120[facility] on above:Result Comment: REFERENCE RANGE IS 0.012 - 0.120 ng/ml cTnI - The cutoff of 0.120 ng/ml is recommended for diagnosis of AMI, yielding optimal performance of 95% sensitivity and 93% specificity.Performed By: #### CTP3 #### [address] [address] CBC WITH DIFFERENTIALon 21-97-9036Kqdshuszk #/vol (Bld) 0.07 10*3/uLNormal0.00-0.20[facility] on above: Performed By: #### CBCD #### [address] [address] Basophils #/vol (Bld)0.7 %Normal0.0-2.0[facility] on above:Performed By: #### CBCD #### [address] [address] Eosinophils #/vol (Bld)0.12 10*3/uLNormal0.00-0.50 [facility] on above:Performed By: #### CBCD #### [address] [address] Eosinophils/100 WBC (Bld)1.2 %Normal0.0-4.0[facility] on above:Performed By: #### CBCD #### [address] [address] Erythrocyte distribution width Ratio (RBC)11.5 %Normal 11.5-14.5[facility] on above:Performed By: #### CBCD #### [address] [address] Hematocrit Volume Fraction (Bld)42.3 %Xgzjjf90.0-47.0 [facility] on above:Performed By: #### CBCD #### [address] [address] Hemoglobin mass conc (Bld)14.8 g/bZFhwhfk34.0-16.0 [facility] on above:Performed By: #### CBCD #### [address] [address] Lymphocytes #/vol (Bld)1.60 10*3/uLNormal1.00-4.80 [facility] on above:Performed By: #### CBCD #### [address] [address] Lymphocytes/100 WBC (Bld)15.6 %Low24.0-44.0[facility] on above:Performed By: #### CBCD #### [address] [address] MCH Entitic mass (RBC)31.1 gkZofuyq12.6-32.2MemEvanston Regional Hospital on above:Performed By: #### CBCD #### [address] [address] MCHC mass conc (RBC)35.0 g/rQKrswwm19.0-36.0[facility] on above:Performed By: #### CBCD #### [address] [address] MCV Entitic volume (RBC)88.9 mDIzyowv22.0-98.0[facility] on above:Performed By: #### CBCD #### [address] [address] Monocytes #/vol (Bld)0.56 10*3/uLNormal0.20-1.20[facility] on above:Performed By: #### CBCD #### [address] [address] Monocytes/100 WBC (Bld)5.5 %Normal5.0-12.0[facility] on above:Performed By: #### CBCD #### [address] [address] Neutrophils #/vol (Bld)7.84 10*3/uLHigh2.00-7.50[facility] on above:Performed By: #### CBCD #### [address] [address] Neutrophils/100 WBC (Bld)76.6 %High36.0-66.0[facility] Hospital [facility] Union CountyComment on above:Performed By: #### CBCD #### [address] [address] NRBC COUNT0.04Dgmnvy9.00-0.50[facility] on above:Performed By: #### CBCD #### [place] [id number] Nucleated RBC/100 WBC Ratio (Bld)0.0 %NormalCarbon County Memorial Hospital on above:Performed By: #### CBCD #### [place] [id number] Platelet mean volume Entitic volume (Bld)9.7 fLNormal 9.4-12.4[facility] on above:Performed By: #### CBCD #### [address] [address] Platelets #/vol (Bld)314 10*3/pWYybqwv657-546HmmelylcCarbon County Memorial Hospital on above:Performed By: #### CBCD #### [address] [address] RBC #/vol (Bld)4.76 10*6/uLNormal3.80-5.10[facility] on above:Performed By: #### CBCD #### [address] [address] WBC #/vol (Bld)10.23 10*3/uLNormal4.80-10.80[facility] on above:Performed By: #### CBCD #### [address] [address] [phone]-VDTSOvo 25-87-3727TVOZHTM-URINEPATIENT: ORGAN, ADDIE J [id number] : 1975 AGE: 43 SEX: F ORDER# [id number] ORDERED BY: PRESTON ESPINO Source: URI Collected: 06/25/18 16:40 Site: Received : 06/25/18 16:46 CULTURE-URINE FINAL 06/27/18 07:52 Isolate 01 >100,000 CFU/mL Escherichia coli DATE: 06/27/18 06:05 Isolate Org# 01 Antibiotics DOMENIC Amikacin <=16 S Amox/K Clav >16/ R Amp/Sulbactam 16/8 I Ampicillin >16 R Aztreonam <=8 S Cefazolin >16 R Cefepime <=8 S Cefoxitin >16 R Ceftriaxone <=8 S Cefuroxime 16 I Ciprofloxacin <=1 S Ertapenem <=2 S Gentamicin <=4 S Levofloxacin <=2 S Meropenem <=4 S Nitrofurantoin <=32 S Piperacillin/Louis <=16 S Tetracycline <=4 S Tobramycin <=4 S Trimeth/Sulfa <=2/ SNormalNiobrara Health and Life Center - LuskComascension standish hospital on above: Performed By: #### EKATERINA #### [place] [address] [phone]-SNSZB QUANTITATIVEon 52-59-4846P-DIMER QUANTITATIVE0.32 mg/L FEUNormal0.00-0.50Ni[facility] - LuskComascension standish hospital on above:Result Comment: 06-16-16 D-DIMER QUANTITATIVE REFERENCE INTERVAL: Anticoagulant therapy decreases the D-dimer levels and may generate false negative results Quantitative D-dimer performed on the Sysmex [id number] analyzer. Cutoff value is 0.50 mg/L FEU in an attempt to obtain a negative predictive value close to 100 percent. (for DVT and PE). Non-VTE causes of elevated D-dimer include: trauma, SD, stroke, sepsis, DIC, active collagen diseases, post-surgery, cancer, thrombolytic therapy, large hematoma, diabetes, and post-. Clinical data and imaging studies may be used in order to confirm a positive D-dimer test. The above D-dimer assay may be used for DIC screening in conjunction with other coagulation procedures (PT, PTT, fibrinogen and platelet count). Pathology consultation is available. 8-21-76Neewzujnq By: #### DDIME #### [place] [address] MAGNESIUMon 68-22-4539Sobsdgerg mass conc1.4 mg/dLLow 1.7-2.2MemEvanston Regional Hospital on above:Order Comment: CALLED ER 06/25/2018, 15:09, KJD, Called with verbal read back by Romeo Castillo.Performed By: #### MAG #### [place] [address] UA COMPLETE AND REFLEX TO CULTUREon 22-61-1444EXXBUAWW0+ /hpfAbnoSheridan Memorial Hospital on above:Performed By: #### URINR #### [address] [address] HYALINE CASTSNONENoSheridan Memorial Hospital on above:Performed By: #### URINR #### [address] [address] RBC - URINE7 /hpfHigh0-2[facility] on above:Performed By: #### URINR #### [address] [address] URINE EPITHELIAL CELLS1 /hpfNormal0-[address] [place] [address] on above:Performed By: #### URINR #### [address] [address] URINE REFLEX CASTSNORMALNovant Health / NHRMC on above:Performed By: #### URINR #### [address] [address] URINE REFLEX CELLSNORMALNovant Health / NHRMC on above:Performed By: #### URINR #### [address] [address] URINE REFLEX CRYSTALSNORMALNormSweetwater County Memorial Hospital - [place] on above:Performed By: #### URINR #### [address] [address] URINE REFLEX YEASTNORMALNoStar Valley Medical Center - Afton on above:Performed By: #### URINR #### [address] [address] WBC - URINE92 /hpfHigh0-[address] [place] [address] on above:Performed By: #### URINR #### [address] [address] Bilirubin.direct mass concNegativeNormalNEGHot Springs Memorial Hospital - [place] on above:Performed By: #### URINR #### [address] [address] BLOODNegativeNormalNEGATIVECarbon County Memorial Hospital on above:Performed By: #### URINR #### [facility] [address] [place] [address] Color Nom (U)LIGHT YELLOWNormalCarbon County Memorial Hospital on above:Performed By: #### URINR #### [facility] [address] [place] [address] Glucose Ql (U)>2000AbnormalNEGATIVECarbon County Memorial Hospital on above:Performed By: #### URINR #### [address] [address] Ketones Ql (U)NegativeNormalNEGHot Springs Memorial Hospital - [place] on above:Performed By: #### URINR #### [address] [address] Leukocyte esterase Test strip Ql (U)MODERATEAbnormal NEGATIVECarbon County Memorial Hospital on above:Performed By: #### URINR #### [address] [address] NITRITES URINE2+ mg/dLAbnormalNEGHot Springs Memorial Hospital - [place] on above:Performed By: #### URINR #### [address] [address] pH (U)5.5 [pH]Normal6.0-8.5[facility] on above:Performed By: #### URINR #### [address] [address] Protein mass conc (U)NegativeNormalNEG/TRACECarbon County Memorial Hospital on above:Performed By: #### URINR #### [address] [address] Specific gravity Relative Density (U)1.403Uutnqg3.010 - 1.030[facility] Union CountyComascension standish hospital on above:Performed By: #### URINR #### [address] [address] TURBIDITYCLEARNoWyoming Medical Center - Casper Comment on above:Performed By: #### URINR #### [address] [address] UROBILINOGEN URINE0.2 mg/dLNormal<2.0Ni[facility] LuskComascension stand[facility] hospital on above:Performed By: #### URINR #### [address] [address] METHOD OF COLLECTING URINENot statedHighlands-Cashiers HospitalComascension standish hospital on above:Performed By: #### URINR #### [address] [address] [phone]-Bkkaa Xray - Portable One Viewon 19-72-7887NN-Chest Xray - Portable One ViewCLINICAL INDICATION: CHEST PAIN, UNSPECIFIED EXAM DESCRIPTION: XR-Chest [...] acute cardiopulmonary disease. Read By: CÉSAR RICE DONormalNiobrara Health and Life Center - Lusk Urinalysis, Routineon 22-06-0673Fjulzgutqoggj mass concNegativeNormalNEGMercy Waterbury HospitalComment on above:Performed By: #### CDP, BMP, BNP, TROPI, DIME, PT, PTT ####[address] [place] [address] Bilirubin (direct)NegativeNormalNEGMerNorwalk Hospital Comment on above:Performed By: #### CDP, BMP, BNP, TROPI, DIME, PT, PTT ####[address] [place] [address] Hemoglobin mass conc (Bld)NegativeNormalNEGMerMercy Health – The Jewish Hospital HospitalComment on above:Performed By: #### CDP, BMP, BNP, TROPI, DIME, PT, PTT ####[address] [place] [address] Nitrite,UrPositive AbnormalNEGMercy Mountain View HospitalComment on above:Performed By: #### CDP, BMP, BNP, TROPI, DIME, PT, PTT ####[address] [place] [address] TurbiditySLIGHTLY CLOUDYAbnormalCLEARMGood Samaritan Hospital Comment on above:Performed By: #### CDP, BMP, BNP, TROPI, DIME, PT, PTT ####[address] , [place] [address] Urine, colorYELLOWNormalYELMercy Mountain View HospitalComment on above:Performed By: #### CDP, BMP, BNP, TROPI, DIME, PT, PTT ####[address] [place] [address] Urine, glucose presence3+AbnormalNEGChillicothe Va Medical Center HospitalComment on above:Performed By: #### CDP, BMP, BNP, TROPI, DIME, PT, PTT ####[address] [place] [address] Urine, leukocyte esterase presenceNegativeNormalNEGChillicothe Va Medical Center HospitalComment on above:Result Comment: Performed at [address] [address] Performed By: #### CDP, BMP, BNP, TROPI, DIME, PT, PTT ####[address] , [facility]83 Urine, pH5.5 [pH]Normal5.0-9.0[facility] HospitalComment on above:Performed By: #### CDP, BMP, BNP, TROPI, DIME, PT, PTT ####[address] , [place] [address] Urine, protein presence NegativeNormalNEGChillicothe Va Medical Center HospitalComment on above:Performed By: #### CDP, BMP, BNP, TROPI, DIME, PT, PTT ####[address]T [place], [place] [address] Urine, specific gravity1.238Sgtfgt9.010-1.020Gal[facility] HospitalComment on above:Performed By: #### CDP, BMP, BNP, TROPI, DIME, PT, PTT ####[address] , [place] [address] Urobilinogen,UrNormalNormalNORMChillicothe Va Medical Center HospitalComment on above:Performed By: #### CDP, BMP, BNP, TROPI, DIME, PT, PTT ####[address] , [place] [address] Urinalysis,Microon 09-02-2017-----NormalGalion HospitalComment on above:Performed By: #### CDP, BMP, BNP, TROPI, DIME, PT, PTT ####[address] , [place] [address] Urine WBC's10 TO 55Hkjbxx1-6Djhbc [facility] HospitalComment on above:Performed By: #### CDP, BMP, BNP, TROPI, DIME, PT, PTT ####[address] , [facility]83 Urine, bacteria in sediment3+AbnormalNONEMeNew Milford HospitalComment on above:Result Comment: Performed at [address] [place], [place] [address] Performed By: #### CDP, BMP, BNP, TROPI, DIME, PT, PTT ####[address] , [facility]83 Urine, epithelial cells in sediment0 TO 9Mywltm5-79EkneiGalion HospitalComment on above:Performed By: #### CDP, BMP, BNP, TROPI, DIME, PT, PTT ####[address] , [facility]83 Urine, erythrocytes0 TO 2Zecxsf6-4OhsvfConnecticut Valley HospitalComment on above:Performed By: #### CDP, BMP, BNP, TROPI, DIME, PT, PTT ####[address] , [facility]83 Basic Metabolic Profon 09-01-2017(cont.)NormalGalion HospitalComment on above:Result Comment: Average GFR for 40-49 years old: 99 mL/min/1.73sq mChronic Kidney Disease: <60 mL/min/1.73sq mKidney failure: <15 mL/min/1.73sq meGFR calculated using average adult body mass. Additional eGFR calculator available at:http://www.[employer] Warrior/multiple_crcl_2012.htmPerformed By: #### CDP, BMP, BNP, TROPI, DIME, PT, PTT ####[address] , [place] [address] Anion gap18 mmol/LHigh9-17Gal[facility] HospitalComment on above:Performed By: #### CDP, BMP, BNP, TROPI, DIME, PT, PTT ####[address] , [place] [address] BUN/CRE Mpsmi78Fiavef8-76Jrtlv [facility] HospitalComment on above:Performed By: #### CDP, BMP, BNP, TROPI, DIME, PT, PTT ####[address]T [place], [facility]83 Oxhtrpd0.9 mg/dLLow8.6-10.4[facility] Comment on above:Performed By: #### CDP, BMP, BNP, TROPI, DIME, PT, PTT ####[address] , [place] [address] Faqtmcaz963 mmol/MAmvuyn68-564GwdcjGalion HospitalComment on above:Performed By: #### CDP, BMP, BNP, TROPI, DIME, PT, PTT ####[address] , [place] [address] WH030 mmol/KDjcizo30-21VenxvGalion HospitalComment on above:Performed By: #### CDP, BMP, BNP, TROPI, DIME, PT, PTT ####[address] , [place] [address] Creatinine0.60 mg/dLNormal0.50-0.90[facility] HospitalComment on above: Performed By: #### CDP, BMP, BNP, TROPI, DIME, PT, PTT ####[address] , [place] [address]([facility])[phone] (non-black) mL/min/{1.73_m2}Normal>60Galion HospitalComment on above:Performed By: #### CDP, BMP, BNP, TROPI, DIME, PT, PTT ####[address] , [place] [address]([facility])[phone] mass smry827 mg/vJXrqk00-11 [facility] HospitalComment on above:Performed By: #### CDP, BMP, BNP, TROPI, DIME, PT, PTT ####[address] , [place] [address]([facility])[phone] molar conc3.3 mmol/LLow3.7-5.3MGood Samaritan Hospital Comment on above:Performed By: #### CDP, BMP, BNP, TROPI, DIME, PT, PTT ####[address] , [place] [address] Sodium 139 mmol/TMcenve329-532LkhjgGalion HospitalComment on above:Performed By: #### CDP, BMP, BNP, TROPI, DIME, PT, PTT ####[address] [place] [address] Staging:[address] Mary HospitalComment on above:Result Comment: Stage 1: Some kidney damage normal GFRStage 2: Mild kidney damage GFR 60-89Stage 3:Moderate kidney damage GFR 30-59Stage 4: Severe kidney damage GFR 15-29Stage 5: Severe kidney damage GFR <15ESRD - chronic treatment by dialysis or transplantPerformed at [address] [place] [address] ([phone] By: #### CDP, BMP, BNP, TROPI, DIME, PT, PTT ####[address] [place] [address] Urea nitrogen7 mg/dLNormal6-20[facility] HospitalComment on above:Performed By: #### CDP, BMP, BNP, TROPI, DIME, PT, PTT ####[address] [place] [address] Glucose mass cnwa061 mg/dLCritically snul58-90FwchyGood Samaritan HospitalComment on above:Performed By: #### CDP, BMP, BNP, TROPI, DIME, PT, PTT ####[address] [place] [address] (cont.)[facility] Comment on above:Result Comment: Average GFR for 40-49 years old: 99 mL/min/1.73sq mChronic Kidney Disease: <60 mL/min/1.73sq mKidney failure: <15 mL/min/1.73sq meGFR calculated using average adult body mass. Additional eGFR calculator available at:http://www.[employer]/multiple_crcl_2012.htmPerformed By: #### CDP, BMP, BNP, TROPI, DIME, PT, PTT ####[address] , [place] [address]([facility])[phone] gap21 mmol/LHigh9-17[facility] HospitalComment on above:Performed By: #### CDP, BMP, BNP, TROPI, DIME, PT, PTT ####[address] , [place] [address]([facility])[phone]/CRE Dmvtr62Zgzjmp3-03Hetzr [facility] HospitalComment on above:Performed By: #### CDP, BMP, BNP, TROPI, DIME, PT, PTT ####[address]T [place], [place] [address]([facility])[phone] mg/dLNormal8.6-10.4[facility] Comment on above:Performed By: #### CDP, BMP, BNP, TROPI, DIME, PT, PTT ####[address] , [place] [address] Hhgxzefw86 mmol/GKeh37-713Ujcif [facility] HospitalComment on above:Performed By: #### CDP, BMP, BNP, TROPI, DIME, PT, PTT ####[address] , [place] [address]([facility])[phone] mmol/YWjniow76-53XrcpeGalion HospitalComment on above:Performed By: #### CDP, BMP, BNP, TROPI, DIME, PT, PTT ####[address] , [place] [address] Creatinine0.62 mg/dLNormal0.50-0.90[facility] HospitalComment on above: Performed By: #### CDP, BMP, BNP, TROPI, DIME, PT, PTT ####[address] , [place] [address]([facility])[phone] (non-black) mL/min/{1.73_m2}Normal>60[facility] HospitalComment on above:Performed By: #### CDP, BMP, BNP, TROPI, DIME, PT, PTT ####[address] [place] [address] Potassium molar conc3.5 mmol/LLow 3.7-5.3MGood Samaritan HospitalComment on above:Performed By: #### CDP, BMP, BNP, TROPI, DIME, PT, PTT ####[address] , [facility]83 Ehdtvz221 mmol/CGigrga292-132GsjtxGalion HospitalComment on above:Performed By: #### CDP, BMP, BNP, TROPI, DIME, PT, PTT ####[address] [address] Staging:NormalGalion HospitalComment on above:Result Comment: Stage 1: Some kidney damage normal GFRStage 2: Mild kidney damage GFR 60-89Stage 3:Moderate kidney damage GFR 30-59Stage 4: Severe kidney damage GFR 15-29Stage 5: Severe kidney damage GFR <15ESRD - chronic treatment by dialysis or transplantPerformed at [address] [place] [address] Performed By: #### CDP, BMP, BNP, TROPI, DIME, PT, PTT ####[address] [place] [address] Urea nitrogen9 mg/dL Normal6-20[facility] HospitalComment on above:Performed By: #### CDP, BMP, BNP, TROPI, DIME, PT, PTT ####[address] [place] [phone] Hydroxybutyrateon 96-66-9894Owrf Hydroxybutyrate0.74 mmol/LHigh0.02-0.27[facility] HospitalComment on above:Result Comment: Performed at [address] [place] [address] Performed By: #### CDP, BMP, BNP, TROPI, DIME, PT, PTT ####[address] [place] [address] CBCon 09-01-2017 Erythrocyte distribution width Auto Ratio (RBC)12.6 %Cdvcsx17.8-14.4[facility] HospitalComment on above:Performed By: #### CDP, BMP, BNP, TROPI, DIME, PT, PTT ####[address] [place] [address] Erythrocytes (RBC)4.39 10*6/uLNormal3.95-5.11[facility] HospitalComment on above:Performed By: #### CDP, BMP, BNP, TROPI, DIME, PT, PTT ####[address] [place] [address] Erythrocytes (RBC)0.0 per 100 WBCNormal0.0Galion HospitalComment on above:Result Comment: Performed at [address] [id number] ([phone] Performed By: #### CDP, BMP, BNP, TROPI, DIME, PT, PTT ####[address] [place] [address] Hematocrit (HCT)39.2 % Zhmhvn57.3-47.1MGood Samaritan HospitalComment on above:Performed By: #### CDP, BMP, BNP, TROPI, DIME, PT, PTT ####[address] [place] [address] Hemoglobin mass conc (Bld)13.7 g/sZFjttlw04.9-15.1 [facility] HospitalComment on above:Performed By: #### CDP, BMP, BNP, TROPI, DIME, PT, PTT ####[address] [place] [id number] RGD63.2 adPbwxvo06.2-33.5[facility] HospitalComment on above:Performed By: #### CDP, BMP, BNP, TROPI, DIME, PT, PTT ####[address] , [place] [address] MCHC mass conc (RBC)34.9 g/hADtvp12.4-34.8[facility] HospitalComment on above:Performed By: #### CDP, BMP, BNP, TROPI, DIME, PT, PTT ####[address]T [place], [facility]83 TLN34.3 dTMkfcye11.6-102.9[facility] Comment on above:Performed By: #### CDP, BMP, BNP, TROPI, DIME, PT, PTT ####[address] , [place] [address] Platelet mean volume (PMV)9.3 fLNormal8.1-13.5[facility] HospitalComment on above:Performed By: #### CDP, BMP, BNP, TROPI, DIME, PT, PTT ####[address] , [place] [address] Qemmzlzdr961 10*3/uL Kmcmtt457-693IvfgwGalion HospitalComment on above:Performed By: #### CDP, BMP, BNP, TROPI, DIME, PT, PTT ####[address] , [place] [address] WBC (Leukocytes)9.0 10*3/uLNormal3.5-11.3MGood Samaritan HospitalComment on above:Performed By: #### CDP, BMP, BNP, TROPI, DIME, PT, PTT ####[address] , [facility]83 F-Zttdo Teston 22-62-4444G-Dimer Test0.23 mg/L FEUNormal0.19-0.50[facility] Comment on above:Result Comment: Elevated levels of D dimer can be seen in any state of coagulation activation including DVT, PE, arterial thrombosis, DIC, inflamatory disease, trauma, malignancy, sepsis, infection, hematoma, liver disease, post surgical state, , atherosclerosis, old age.When combined witha low clinical probability, a D dimer value of <0.50 mg/L is considered negative for DVT and PE (negative predictive value of 98%).Performed at [address] [place] [address] Performed By: #### CDP, BMP, BNP, TROPI, DIME, PT, PTT ####[address] [facility]83 ED Provider Noteon [id number] IP Note OR TranscriptionNormalChillicothe Va Medical Center HospitalLithiumon 05-64-5378Whpiacr8.8 mmol/LNormal0.6-1.2[facility] HospitalComment on above: Result Comment: Performed at [address] [place] [address] Performed By: #### CDP, BMP, BNP, TROPI, DIME, PT, PTT ####[address] [place] [address] Date last dose,NOT REPORTEDNormalMercy Mountain View HospitalComment on above:Performed By: #### CDP, BMP, BNP, TROPI, DIME, PT, PTT ####[address] , [phone] amount,NOT REPORTEDNormalMercy Mountain View HospitalComment on above:Performed By: #### CDP, BMP, BNP, TROPI, DIME, PT, PTT ####[address] , [place] [phone] last dose,NOT REPORTEDNormalMercy Mountain View HospitalComment on above:Performed By: #### CDP, BMP, BNP, TROPI, DIME, PT, PTT ####[address] [facility]83 Magnesiumon 09-01-2017 Magnesium1.5 mg/dLLow1.6-2.6[facility] HospitalComment on above:Result Comment: Performed at [address] [place] [address] Performed By: #### CDP, BMP, BNP, TROPI, DIME, PT, PTT ####[address] [place] [address] Troponinon 07-82-5703Ficrsdqz I.cardiac mass concNormalGalion Hospital Comment on above:Result Comment: Reference Range: <0.03 Within reference range. 0.03-0.09 Possible myocardial damage.Repeat at appropriate intervals to rule out chronic elevation. >= 0.10 Indicative of myocardial damage.Patients with high levels of Biotin oral intake (i.e >5mg/day) may have falsely decreased Troponin T levels. Samples collected within 8 hours of biotin intake may require additional information for diagnosis.Performed at [address] [place] [address] Performed By: #### CDP, BMP, BNP, TROPI, DIME, PT, PTT ####[address] [place] [address] Troponin T.cardiac mass concug/LNormal<0.03[facility] HospitalComment on above:Result Comment: Troponin T results cannot be compared to Troponin-I results.Performed By: #### CDP, BMP, BNP, TROPI, DIME, PT, PTT ####[address] [place] [address] Urinalysis, Routineon [id number] REPORTEDNoSt. Rita's Hospital Comment on above:Performed By: #### CDP, BMP, BNP, TROPI, DIME, PT, PTT ####[address] [place] [address] Urinalysis,Microon [id number], RenalNOT YDPBPMPKGtsegy6Mfxon [facility] HospitalComment on above:Performed By: #### CDP, BMP, BNP, TROPI, DIME, PT, PTT ####[address] [place] [address] Mucus StrandsNOT REPORTEDNormalNONEMercy Mountain View HospitalComment on above:Performed By: #### CDP, BMP, BNP, TROPI, DIME, PT, PTT ####[address] , [place] [address] Other ObservationsNOT REPORTEDNormal NREQMercy Mountain View HospitalComment on above:Performed By: #### CDP, BMP, BNP, TROPI, DIME, PT, PTT ####[address] [place] [address] TrichomonasNOT REPORTEDNormalNONEMercy Mountain View HospitalComment on above:Performed By: #### CDP, BMP, BNP, TROPI, DIME, PT, PTT ####[address] [place] [address] Urine, amorphous sediment presence in sedimentNOT REPORTEDNormalNONEMercy Mountain View HospitalComment on above:Performed By: #### CDP, BMP, BNP, TROPI, DIME, PT, PTT ####[address] , [facility]83 Urine, casts in sedimentNOT REPORTEDNormalMercy Mountain View HospitalComment on above:Performed By: #### CDP, BMP, BNP, TROPI, DIME, PT, PTT ####[address] , [place] [address] Urine, crystals in sedimentNOT REPORTED NormalNONEMercy Mountain View HospitalComment on above:Performed By: #### CDP, BMP, BNP, TROPI, DIME, PT, PTT ####[address] [place] [id number] Urine, yeast presence in sedimentNOT REPORTEDNormalNONEMercy Mountain View HospitalComment on above:Performed By: #### CDP, BMP, BNP, TROPI, DIME, PT, PTT ####[address] [place] [address] Venous Blood Gaseson 91-13-9651Uvevewlhgmx (HCO3)21.2 mmol/L Low24.0-30.0[facility] HospitalComment on above:Performed By: #### CDP, BMP, BNP, TROPI, DIME, PT, PTT ####[address] , [facility]83 Body Temp.37.0NormalMerNorwalk HospitalComment on above: Result Comment: Performed at [address] [place] [address] Performed By: #### CDP, BMP, BNP, TROPI, DIME, PT, PTT ####[address] , [facility]83 CO235.0 mmol/FRoq76-62TodxyNorwalk HospitalComment on above:Performed By: #### CDP, BMP, BNP, TROPI, DIME, PT, PTT ####[address] [place] [address] Negative Base Excess2.8 mmol/LHigh0.0-2.0[facility] HospitalComment on above:Performed By: #### CDP, BMP, BNP, TROPI, DIME, PT, PTT ####[address] , [facility]83 O2 mmkiivhnzo95.0 %Illopq34.0-85.0[facility] HospitalComment on above:Performed By: #### CDP, BMP, BNP, TROPI, DIME, PT, PTT ####[address] [place] [address] Oxygen in arterial blood34.6 mm[Hg]Cfsgmk61.0-50.0[facility] HospitalComment on above: Performed By: #### CDP, BMP, BNP, TROPI, DIME, PT, PTT ####[address] [place] [address] pH of blood7.400 [pH] Normal7.32-7.42[facility] HospitalComment on above:Performed By: #### CDP, BMP, BNP, TROPI, DIME, PT, PTT ####[address], [facility]83 Allen TestNOT REPORTEDNormalGalion Hospital Comment on above:Performed By: #### CDP, BMP, BNP, TROPI, DIME, PT, PTT ####[address] [place] [address] YQ1LNY DQUBVIFWFjijjm59.0-55.0[facility] HospitalComment on above:Performed By: #### CDP, BMP, BNP, TROPI, DIME, PT, PTT ####[address] , [place] [address] ATZ6SLX REPORTEDNoSt. Rita's Hospital Comment on above:Performed By: #### CDP, BMP, BNP, TROPI, DIME, PT, PTT ####[address] [place] [address] Hemoglobin mass conc (Bld)NOT EVCZXKMTTvprhb92.0-98.0[facility] Comment on above:Performed By: #### CDP, BMP, BNP, TROPI, DIME, PT, PTT ####[address] , [place] [address] ModeNOT REPORTEDNormalGalion HospitalComment on above:Performed By: #### CDP, BMP, BNP, TROPI, DIME, PT, PTT ####[address] [place] [address] Notification TimeNOT REPORTEDNormMercy Health St. Anne HospitalComment on above:Performed By: #### CDP, BMP, BNP, TROPI, DIME, PT, PTT ####[address] [place] [address] Notification:NOT REPORTEDNormalMerMercy Health – The Jewish Hospital HospitalComment on above:Performed By: #### CDP, BMP, BNP, TROPI, DIME, PT, PTT ####[address] [place] [address] O2 Device/Flow/%NOT REPORTEDNormalMerMercy Health – The Jewish Hospital HospitalComment on above:Performed By: #### CDP, BMP, BNP, TROPI, DIME, PT, PTT ####[address] [place] [address] PEEP/CPAPNOT REPORTEDNormalMerMercy Health – The Jewish Hospital HospitalComment on above:Performed By: #### CDP, BMP, BNP, TROPI, DIME, PT, PTT ####[address] , [place] [address]([facility])[phone] Adjst'd for Temp.NOT REPORTEDNormal7.320-7.420MerMercy Health – The Jewish Hospital HospitalComment on above:Performed By: #### CDP, BMP, BNP, TROPI, DIME, PT, PTT ####[address] [place] [address] bK5 Adj'd for Temp.NOT REPORTEDNormal 30.0-50.0[facility] HospitalComment on above:Performed By: #### CDP, BMP, BNP, TROPI, DIME, PT, PTT ####[address] [place] [address]([facility])[phone] Base ExcessNOT REPORTEDNormal0.0-2.0[facility] HospitalComment on above:Performed By: #### CDP, BMP, BNP, TROPI, DIME, PT, PTT ####[address] [place] [address] PSVNOT REPORTEDNormalMerMercy Health – The Jewish Hospital HospitalComment on above:Performed By: #### CDP, BMP, BNP, TROPI, DIME, PT, PTT ####[address] [place] [address] Pt. PositionNOT REPORTEDNormalMercy Mountain View HospitalComment on above:Performed By: #### CDP, BMP, BNP, TROPI, DIME, PT, PTT ####[address] [place] [address] Respiratory rateNOT REPORTEDNormalMercy Mountain View HospitalComment on above:Performed By: #### CDP, BMP, BNP, TROPI, DIME, PT, PTT ####[address] [place] [address] Set RateNOT REPORTEDNormalMercy Mountain View HospitalComment on above:Performed By: #### CDP, BMP, BNP, TROPI, DIME, PT, PTT ####[address] [place] [address]([facility])[phone] DrawnNOT REPORTED NormalMercy Mountain View HospitalComment on above:Performed By: #### CDP, BMP, BNP, TROPI, DIME, PT, PTT ####[address] [place] [address] Text for RespiratoryNOT REPORTEDNormalParkwood Hospitalcy [facility] Comment on above:Performed By: #### CDP, BMP, BNP, TROPI, DIME, PT, PTT ####[address] [place] [address] Total HbNOT CYWSNEGXSmvysk40.0-16.0[facility] HospitalComment on above:Performed By: #### CDP, BMP, BNP, TROPI, DIME, PT, PTT ####[address] [place] [address] Total RateNOT REPORTEDNormalMercy Mountain View HospitalComment on above:Performed By: #### CDP, BMP, BNP, TROPI, DIME, PT, PTT ####[address] [place] [address] VTNOT REPORTEDNoSt. Rita's HospitalComment on above: Performed By: #### CDP, BMP, BNP, TROPI, DIME, PT, PTT ####[address] [place], [place] [address] XR CHEST (2 VW)on [id number] CHEST (2 VW)FINAL REPORTEXAM: XR CHEST (2 VW)HISTORY: shortness of breath TECHNIQUE: Two-view chest PRIORS: None.FINDINGS: Lung marquez are clear. No consolidation, pleural effusion, or pneumothorax. Cardio mediastinal silhouette is unremarkable. Chest port and pacer noted. IMPRESSION: Impression: No acute disease. Interpreted by:LUIS Dykesigned by:Ko Lua MD09/01/17inal resultNoSt. Rita's HospitalPROGRESSon [id number] ID: [id number]: Ben MurphyheyService: (none)Author Type: PhysicianType: Progress NotesFiled: 07/17/2017 10:07 AMNote Text:[facility] Vascular InstituteRobpresbyterian santa [facility] [place] Department of Cardiovascular MedicineOUTPATIENT VISIT DATE 07/17/17OUTPATIENT VISIT TYPENEWPRIMARY CARE PH YSICIAN:Cem Mario, [id number] [facility] [address]Vxbow: [phone]: [phone] COMPLAINT:Patient presents with:Cardiac ClearanceHISTORY OF PRESENT ILLNESS:Addie Jean Baptiste is a 42 year old female with a 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 The patient is facingankle surgery in the near future. The patient is usually seen at [facility] cardiology practice. She states that she was cleared forsurgeryby them however this visit was requested. The patient denies anychest pain or shortness of breath. She denies any palpitations, syncopalor near syncopal episodes. She did have low heart rates and multiplepassing out episodes in the past which led to the pacemaker being placedin the first place. Shedenies any lower extremity swelling. She deniesany orthopnea or paroxysmal nocturnal dyspnea. The patient has done wellsince her pacemaker was replaced relatively recently. She is scheduledfor a follow-up checkup in the near future in [place]. The patient hasnot had any problems with surgical procedures in the past.PAST MEDICAL HISTORYDiagnosis Date- Anxiety- Bipolar 1 disorder (HCC)- Bradycardia- Depression- DM (diabetes mellitus) (HCC)- HLD (hyperlipidemia)- HTN (hypertension)- Hypothyroid- PacemakerPAST SURGICAL HISTORYProcedure Laterality Date- HYSTERECTOMY- REMOVAL GALLBLADDERSocial HistorySubstance Use Topics- Smoking status: Former Smoker Packs/day: 1.00 Years: 24.00 Quit date: 04/16- Smokeless tobacco: Never Used- Alcohol use NoFAMILY HISTORYProblem Relation Age of Onset- Seizures Mother- Cancer Mother Thyroid- Heart Father CABG x3- Diabetes Father- Stroke Father- Hypertension FatherALLERGIES:ALLERGIESAllergen Reactions- Adhesive Tape (Daiana* Itching- Codeine Rash- Darvocet A500 [Prop* GI Upset- Dye Contraindication-Medical Surgical- Latex Rash- Toradol [Ketorolac * Rash- Tramadol RashMEDICATIONS:aspirin 81 mg chewable tablet Take 81 mg by mouth.atorvastatin (LIPITOR)20 mg tablet Take 20 mg by mouth once daily.levETIRAcetam (KEPPRA) 1,000 mg tablet Take 1,000 mg bymouth.lithium carbonate (ESKALITH) 300 mg capsule 300mg in [...] 251-300 = 6 units 301-350 = 8 sdyng196-161 = 10 unitsinsulin lispro (HUMALOG) 100 unit/mL [...] kg (196 lb) SpO2 96% BMI 35.85 kg/n5Zglclvl: Well appearing, in no acute distress.Eyes: Conjunctiva normal, sclera normalNeck: No jugular venous distention,no palpable thyromegaly.Heart: Regular rhythm, S1, S2 normal, no S3, no S4. No murmur. No carotidbruits.Respiratory: Clear to auscultation bilaterally. Good respiratory effort.GI: Soft, nontender, bowel sounds normal, no palpable hepatosplenomegalyExtremities: Normal pulses in distal lower extremities. Absent lowerextremity edemaNeuro: Alert, cooperative with no focal deficit.Psych: Pleasant and cooperative.Skin: No rashes or wounds.CARDIOVASCULAR MEDICINE TESTING:A 12-lead electrocardiogram obtained on 07/14/2017 reveals sinus rhythm at88 bpm. Is possible right atrial enlargement. There are no acute ST orT-wave changes present. There there is no evidence of previous SD.I have personally reviewed the above Cardiovascular Medicine [...] first checkup of recently changed generator at [facility].4. Controlled type 2 diabetes mellitus without complication, withlong- term current use of insulin (HCC) - ICD9: 250.00, V58.67, ICD10:E11.9, Z79.4, stable, care per primary care team.5. Essential hypertension controlled on current medications.6. Hyperlipidemia unspecified type, currently on atorvastatin.PLAN:The patient is at low riskfor a perioperative cardiac event in regards toankle surgery.No further workup is necessary.Continue current medical regimen.Low-cholesterol, low-fat diet.Follow-up with her primary cardiology provider at [facility] aspreviously directed.A copy of this consultation note will be provided to the requestingphysician by way of shared medical record or to the requesting physicianvia U.S. Mail.This document was generated utilizing [employer] dictation. I have reviewedand verified that the jose luis nts of the document are accurate with theexception of minor grammatical, spelling and punctuation errors.CONTACT INFORMATION:Thank you for allowing us to participate in the care of this very pleasantpatient. Please free to contact us if we can be of any furtherassistance.Ben De Jesus MD, FACCRobert and Pretty ZeeDepartment of Cardiovascular MedicineSt. Francis Hospitalrt and Vascular InstituteJillian Ville [id number] [facility].[place], [place] [address]Azqfhx: [phone] NormalCRegency Hospital Cleveland WestXR Lumbar Spine 2-3 Views (Standard)on [id number] Lumbar Spine 2-3 Views (Standard)No acute osseous abnormality. If symptoms persist, further evaluation with MRI would be recommended. [facility] Workstation ID: [id number] Interpretation CodeFUFalcon Expenses, Inc. [facility]OSPITALXR Lumbar Spine 2-3 Views (Standard) EXAMINATION: XR LUMBAR SPINE 2-3 VIEWS (STANDARD) HISTORY: ORDERING SYSTEM PROVIDED HISTORY: back pain, TECHNOLOGIST PROVIDED HISTORY: Reason for exam: Pt states she was at [employer] eating and then upon leaving went to get into her van and lifted up her left leg to get into the van and felt severepain in her mid lower back that is radiating down her left leg and she became short of breath when the pain hit. No resp distress upon arrival to the ED. Pt reports she has a hx of herniated discs inher back. Illness/Other Cancer History: u Surgery, RadiationHistory: pacemaker Encounter Type: Initial Additional signs and symptoms: no ORDERING SYSTEM PROVIDED DIAGNOSIS CODES: COMPARISON: Lumbar ra diographs 01/30/2014. FINDINGS: There are 5 bbn-tre-chcdypz lumbar-type vertebral bodies in anatomic alignment. Mineralization is within normal limits. No acute fracture or dislocation. The sacroiliac joint spaces are unremarkable. Surgical clips are seen within the right upper quadrant of the abdomen.Invalid Interpretation CodeWatsin [facility]OSPITALXR Lumbar Spine 2-3 Views (Standard) Interface, Rad In Pacs Powerscribe - 06/27/2017 12:48 AM EST EXAMINATION: XR LUMBAR SPINE 2-3 VIEWS(STANDARD) HISTORY: ORDERING SYSTEM PROVIDED HISTORY: back pain, TECHNOLOGIST PROVIDED HISTORY: Reason for exam: Pt states she was at [employer] eating and then upon leaving went to [...] Lumbar radiographs 01/30/2014. FINDINGS: There are 5 ipf-vco-nmoxcrj lumbar-type vertebral bodies in anatomic alignment. Mineralization is within normal limits. No acute fracture or dislocation. The sacroiliac joint spaces are unremarkable. Surgical clips are seen within the right upper quadrant of the abdomen. IMPRESSION: No acute osseous abnormality. If symptoms persist, further evaluation with MRI would be recommended. [facility] Workstation ID: [id number] Invalid Interpretation CodeFUAMINATA Yippy [facility]PITALXR Thoracic Spine 3 Views (Standard)on [id number] Thoracic Spine 3 Views (Standard)No acute bony abnormalities. [facility] Workstation ID: [id number] Interpretation CodeFUBRENTWOOD BEHAVIORAL HEALTHCARE OF MISSISSIPPIXR Thoracic Spine 3 Views (Standard)EXAMINATION: XR THORACIC SPINE 3 VIEWS (STANDARD) HISTORY: ORDERING SYSTEM PROVIDED HISTORY: back pain, TECHNOLOGIST PROVIDED HISTORY: Reason for exam: Pt states she was at [employer] eating and then upon leaving went to get into her van and lifted up her left leg to get into the van and felt severepain in her mid lower back that is [...] acute fractures or dislocations. Left-sided pacemaker and right- sided chest port are noted. Three views of the lumbar spine. Vertebral body and disc heights are maintained. There are no acute fractures or dislocations. Invalid Interpretation CodeOCEANS BEHAVIORAL HOSPITAL BILOXI Thoracic Spine 3 Views (Standard)Interface, Rad In Pacs Powerscribe - 06/26/2017 9:04 PM EST EXAMINATION: XR THORACIC SPINE 3 VIEWS (STANDARD) HISTORY: ORDERING SYSTEM PROVIDED HISTORY: back pain, TECHNOLOGIST PROVIDED HISTORY: Reason for exam: Pt states she was at [employer] eating and then upon leaving went to [...] herniated discs in her back. Illness/Other Cancer History:u Surgery, RadiationHistory: pacemaker Encounter Type: Initial Additional signs and symptoms: no ORDERING SYSTEM PROVIDED DIAGNOSIS CODES: COMPARISON: None. FINDINGS: Four views of the thoracic spine. Vertebral body heights are maintained. Disc heights are maintained. There are no acute fractures or dislocations. Left-sided pacemaker and right-sided chest port are noted. Three views of the lumbarspine. Vertebral body and disc heights are maintained. There are no acute fractures or dislocations. IMPRESSION: No acute bony abnormalities. [employer] Workstation ID: [id number] Interpretation CodeFUJI SYNAPSE RESEDA OHIOCult,Urineon [id number],UrineSpecimen Description .URINE Performed at [address] [place] [address] ([phone] Special Requests NOT REPORTEDCulture ESCHERICHIA COLI >[id number] CFU/ML Performed at [address] [address] ([phone] Report Status FINAL 02/17/2017SUSCEPTIBILITYOrganism ECMethod MICAmikacin NOT REPORTEDAmpicillin >=32 RESISTANTAmpicillin/Sulbactam NOT REPORTEDAztreonam <=1 SUSCEPTIBLECefazolin <=4 SUSCEPTIBLE Cefazolin sensitivity results can be used to predict the effectiveness of oral cephalosporins (eg. Cephalexin) in uncomplicated Urinary Tract Infections due to E. coli, K. pneumoniae, and P. mirabilis Cefepime NOT REPORTEDCeftriaxone <=1 SUSCEPTIBLECiprofloxacin >=4 RESISTANTErtapenem NOT REPORTEDESBL NEGATIVEGentamicin <=1 SUSCEPTIBLEMeropenem NOT REPORTEDNitrofurantoin <=16 SUSCEPTIBLETigecycline NOT REPORTEDTobramycin <=1 SUSCEPTIBLETrimethoprim/Sulfa >=320 RESISTANTPiperacillin/Tazobactam <=4 S USCEPTIBLENormalGalion HospitalComment on above:Performed By: #### CDP, BMP, BNP, TROPI, DIME, PT, PTT ####[address] [place] [address] APTTon [id number] sLow23.2-34.4Galion HospitalComment on above:Result Comment: Performed at [address] [place] [address] ([phone] By: #### CDP, BMP, BNP, TROPI, DIME, PT, PTT ####[address] , [place] [address] Basic Metabolic Profon 02-16-2017(cont.)Normal Galion HospitalComment on above:Result Comment: Average GFR for 30-39 years old: 107 mL/min/1.73sq mChronic Kidney Disease: <60 mL/min/1.73sq mKidney failure: <15 mL/min/1.73sq meGFR calculated using average adult body mass. A dditional eGFR calculator available at:http://www.Drama[employer]ever/multiple_crcl_2012.htmPerformed By: #### CDP, BMP, BNP, TROPI, DIME, PT, PTT ####[address] , [place] [address] Anion gap20 mmol/LHigh9-17Galion HospitalComment on above:Performed By: #### CDP, BMP, BNP, TROPI, DIME, PT, PTT ####[address] , [place] [address] BUN/CRE Rzyfi52Dkkurg 9-20Galion HospitalComment on above:Performed By: #### CDP, BMP, BNP, TROPI, DIME, PT, PTT ####[address] , [place] [address] Jscfikt5.7 mg/dLNormal8.6-10.4Galion HospitalComment on above:Performed By: #### CDP, BMP, BNP, TROPI, DIME, PT, PTT ####[address] , [place] [address] Zcqypmxa90 mmol/LLow 98-107Galion HospitalComment on above:Performed By: #### CDP, BMP, BNP, TROPI, DIME, PT, PTT ####[address] [place] [address] IS416 mmol/TBervkq71-72FykkbGalion HospitalComment on above: Performed By: #### CDP, BMP, BNP, TROPI, DIME, PT, PTT ####[address] , [place] [address] Edunovkzjp8.71 mg/dL Normal0.50-0.90Galion HospitalComment on above:Performed By: #### CDP, BMP, BNP, TROPI, DIME, PT, PTT ####[address], [place] [address] eGFR (non-black)mL/min/{1.73_m2}Normal>60Galion HospitalComment on above:Performed By: #### CDP, BMP, BNP, TROPI, DIME, PT, PTT ####[address] , [place] [address] Glucose mass noev180 mg/rQWpze87-88UcsvmGood Samaritan Hospital Comment on above:Performed By: #### CDP, BMP, BNP, TROPI, DIME, PT, PTT ####[address] , [place] [address] Potassium molar conc4.3 mmol/LNormal3.7-5.3MGood Samaritan HospitalComment on above:Performed By: #### CDP, BMP, BNP, TROPI, DIME, PT, PTT ####[address] , [facility]83 Milxpm546 mmol/LLow 135-144Galion HospitalComment on above:Performed By: #### CDP, BMP, BNP, TROPI, DIME, PT, PTT ####[address] , [place] [address] Staging:NormalGalion HospitalComment on above:Result Comment: Stage 1: Some kidney damage normal GFRStage 2: Mild kidney damage GFR 60-89Stage 3:Moderate kidney damage GFR 30-59Stage 4: Severe kidney damage GFR 15-29Stage 5: Severe kidney damage GFR <15ESRD - chronic treatment by dialysis or transplantPerformed at [address] [place] [address] Performed By: #### CDP, BMP, BNP, TROPI, DIME, PT, PTT ####[address] [place] [address] Urea nitrogen8 mg/dLNormal6-20Galion HospitalComment on above:Performed By: #### CDP, BMP, BNP, TROPI, DIME, PT, PTT ####[address] [place] [address] Brain Natri. Peptideon [id number] NormalGalion HospitalComment on above:Result Comment: Pro-BNP Reference Range:Rule Out: <300Grey Zone: Age <50 300-450 Age 50-75 300-900 Age >75 300- 1800Usually represents mild to moderate HF but other cardiopulmonary causes caroline ot be ruled out.Rule In: Age <50 >450 Age 50-75 >900 Age >75 >1800Performed at [address] [place] [address] Performed By: #### CDP, BMP, BNP, TROPI, DIME, PT, PTT ####[address] [place] [address] YOI120 pg/mLNormal<300 Galion HospitalComment on above:Result Comment: Pro-BNP results cannot be compared to BNP results.Performed By: #### CDP, BMP, BNP, TROPI, DIME, PT, PTT ####[address] [place] [address] CBC with Diffon [id number]. Basophil0.00 k/uLNormal0.0-0.2MGood Samaritan Hospital Comment on above:Result Comment: Performed at [address] [place] [address] Performed By: #### CDP, BMP, BNP, TROPI, DIME, PT, PTT ####[address] [place] [address] Abs.Neutrophil (Seg)8.70 k/uLHigh1.8-7.7[facility] Comment on above:Performed By: #### CDP, BMP, BNP, TROPI, DIME, PT, PTT ####[address] [place] [address] Basophils/100 WBC Auto (Bld)0 %NormalGalion HospitalComment on above: Performed By: #### CDP, BMP, BNP, TROPI, DIME, PT, PTT ####[address] [place] [address] Irxzqjtiywa7.10 10*3/uL Normal0.0-0.4Galion HospitalComment on above:Performed By: #### CDP, BMP, BNP, TROPI, DIME, PT, PTT ####[address] [place] [address] Eosinophils/100 leukocytes1 %[facility] Comment on above:Performed By: #### CDP, BMP, BNP, TROPI, DIME, PT, PTT ####[address] [place] [address] Erythrocyte distribution width Auto Ratio (RBC)11.9 %Low12.1-15.2MGood Samaritan HospitalComment on above:Performed By: #### CDP, BMP, BNP, TROPI, DIME, PT, PTT ####[address] [place] [address] Erythrocytes (RBC)5.01 10*6/uLNormal4.0-5.2[facility] HospitalComment on above:Performed By: #### CDP, BMP, BNP, TROPI, DIME, PT, PTT ####[address] [address] Hematocrit (HCT)45.2 % Qnyofo46-60VorddGalion HospitalComment on above:Performed By: #### CDP, BMP, BNP, TROPI, DIME, PT, PTT ####[address] , [place] [address] Hemoglobin mass conc (Bld)15.5 g/jGAyqmvx26.0-16.0Galion HospitalComment on above:Performed By: #### CDP, BMP, BNP, TROPI, DIME, PT, PTT ####[address] [place] [address] Tkkiyejxsoh2.00 10*3/uLNormal1.0-4.8[facility] Comment on above:Performed By: #### CDP, BMP, BNP, TROPI, DIME, PT, PTT ####[address] , [place] [address] Lymphocytes/100 mkjiqmucve56 %NormalGalion HospitalComment on above: Performed By: #### CDP, BMP, BNP, TROPI, DIME, PT, PTT ####[address] , [place] [address] PPN24.0 xaNdpzxw29-63 Galion HospitalComment on above:Performed By: #### CDP, BMP, BNP, TROPI, DIME, PT, PTT ####[address] , [place] [address] MCHC mass conc (RBC)34.4 g/jUZlsnlo47-01DzudsGalion Hospital Comment on above:Performed By: #### CDP, BMP, BNP, TROPI, DIME, PT, PTT ####[address] [place] [address] YEB04.4 rHSpyqfo44-167UrqiyGalion HospitalComment on above:Performed By: #### CDP, BMP, BNP, TROPI, DIME, PT, PTT ####[address], [place] [address] Rtoynmdcz1.40 10*3/uLNormal0.2-0.8Galion HospitalComment on above:Performed By: #### CDP, BMP, BNP, TROPI, DIME, PT, PTT ####[address] , [place] [address] Monocytes/100 leukocytes4 %NormalGalion HospitalComment on above:Performed By: #### CDP, BMP, BNP, TROPI, DIME, PT, PTT ####[address] , [place] [address]([facility])[phone] (Seg)77 %NormalChillicothe Va Medical Center HospitalComment on above:Performed By: #### CDP, BMP, BNP, TROPI, DIME, PT, PTT ####[address] [place] [address] Platelet mean volume (PMV)8.1 fLNormal6.0-12.0Galion HospitalComment on above:Performed By: #### CDP, BMP, BNP, TROPI, DIME, PT, PTT ####[address] [place] [address] Hehzczzzy824 10*3/uL Sxtqqe857-938SujvtGalion HospitalComment on above:Performed By: #### CDP, BMP, BNP, TROPI, DIME, PT, PTT ####[address] [place] [address] WBC (Leukocytes)11.2 10*3/uLHigh3.5-11.0[facility] Comment on above:Performed By: #### CDP, BMP, BNP, TROPI, DIME, PT, PTT ####[address] [place] [address]([facility])[phone] Diff PerformedNOT REPORTEDNormalGalion HospitalComment on above:Performed By: #### CDP, BMP, BNP, TROPI, DIME, PT, PTT ####[address] , [place] [address] Erythrocyte morphologyNOT REPORTED NormalGalion HospitalComment on above:Performed By: #### CDP, BMP, BNP, TROPI, DIME, PT, PTT ####[address] , [place] [address] PlateletsNOT REPORTEDNormalChillicothe Va Medical Center HospitalComment on above:Performed By: #### CDP, BMP, BNP, TROPI, DIME, PT, PTT ####[address] , [place] [address] WBC MorphologyNOT REPORTEDNoSt. Rita's HospitalComment on above:Performed By: #### CDP, BMP, BNP, TROPI, DIME, PT, PTT ####[address] , [place] [phone]-Vbrho Teston [id number]-Dimer Test0.26 mg/L FEUNormal 0.19-0.50Galion HospitalComment on above:Result Comment: Elevated levels of D dimer can be seen in any state of coagulation activation including DVT, PE, arterial thrombosis, DIC, inflamatory disease, trauma, malignancy, sepsis, infection, hematoma, liver disease, post surgical state, , atherosclerosis, old age.When combined witha low clinical probability, a D dimer value of <0.50 mg/L is considered negative for DVT and PE (negative predictive value of 98%).Performed at [address] [place], [place] [address] ([phone] By: #### CDP, BMP, BNP, TROPI, DIME, PT, PTT ####[address] , [place] [address] ED Noteon [id number] IP Note OR TranscriptionNormalMercy Mountain View HospitalHIM IP Note OR TranscriptionNormalMercy Mountain View HospitalHIM IP Note OR Tie Tape Machine Operator NormalMercy Mountain View HospitalHIM IP Note OR TranscriptionNormalMercy Mountain View HospitalHIM IP Note OR TranscriptionNormalMercy Mountain View HospitalHIM IP Note OR TranscriptionNormalMercy Mountain View HospitalHIM IP Note OR TranscriptionNormalMercy Mountain View HospitalHIM IP Note OR TranscriptionNormalMercy Mountain View HospitalHIM IP Note OR TranscriptionNormalMercy Mountain View HospitalHIM IP Note OR Tie Tape Machine Operator NormalMercy Mountain View HospitalHIM IP Note OR TranscriptionNormalMercy Mountain View HospitalED Provider Noteon [id number] IP Note OR TranscriptionNormalMercy Mountain View HospitalPTon 04-14-1550OQW Coag RelTime (PPP)0.9 {INR}Normal0.9-1.2MercSheltering Arms Hospital HospitalComment on above:Result Comment: Performed at [address] [place] [address] ([phone] By: #### CDP, BMP, BNP, TROPI, DIME, PT, PTT ####[address] [place] [phone] time (PT) Coag time (PPP)9.7 sNormal 9.7-12.2MGood Samaritan HospitalComment on above:Performed By: #### CDP, BMP, BNP, TROPI, DIME, PT, PTT ####[address] [place] [address] Troponinon 38-11-8183Qmzkekzu I.cardiac mass concMount St. Mary HospitalComment on above:Result Comment: Reference Range: <0.03 Within reference range. 0.03-0.09 Possible myocardial damage.Repeat at appropriate intervals to rule out chronic elevation. >= 0.10 Indicative of myocardial damage.Performed at [address] [place] [address] Performed By: #### CDP, BMP, BNP, TROPI, DIME, PT, PTT ####[address] [place] [address] Troponin T.cardiac mass concug/LNormal<0.03Galion HospitalComment on above:Result Comment: Troponin T results cannot be compared to Troponin-I results.Performed By: #### CDP, BMP, BNP, TROPI, DIME, PT, PTT ####[address] [address] Troponin I.cardiac mass concNormalChillicothe Va Medical Center HospitalComment on above:Result Comment: Reference Range: <0.03 Within reference range. 0.03-0.09 Possible myocardial damage.Repeat at appropriate intervals to rule out chronic elevation. >= 0.10 Indicative of myocardial damage.Performed at [address] [address] [phone] By: #### CDP, BMP, BNP, TROPI, DIME, PT, PTT ####[address] , [place] [address] Troponin T.cardiac mass concug/LNormal<0.03Gal[facility] HospitalComment on above:Result Comment: Troponin T results cannot be compared to Troponin-I results.Performed By: #### CDP, BMP, BNP, TROPI, DIME, PT, PTT ####[address] , [place] [address] UA w/Reflex Cultureon 14-66-1984Wgunoletlggic mass conc1+AbnormalNEGChillicothe Va Medical Center HospitalComment on above:Performed By: #### CDP, BMP, BNP, TROPI, DIME, PT, PTT ####[address] [place] [address] Bilirubin (direct) NegativeNormalNEGChillicothe Va Medical Center HospitalComment on above:Performed By: #### CDP, BMP, BNP, TROPI, DIME, PT, PTT ####[address] [address] Hemoglobin mass conc (Bld)TRACEAbnormalNEGMercy Mountain View HospitalComment on above:Performed By: #### CDP, BMP, BNP, TROPI, DIME, PT, PTT ####[address] , [place] [address] Nitrite,UrPositiveAbnormalNEGMercy Mountain View HospitalComment on above:Performed By: #### CDP, BMP, BNP, TROPI, DIME, PT, PTT ####[address] , [place] [address] TurbiditySLIGHTLY CLOUDY AbnormalCLEARMercSheltering Arms Hospital HospitalComment on above:Performed By: #### CDP, BMP, BNP, TROPI, DIME, PT, PTT ####[address] [place] [address] Urine, colorYELLOWNormalYELMercy Mountain View HospitalComment on above:Performed By: #### CDP, BMP, BNP, TROPI, DIME, PT, PTT ####[address] [place] [address] Urine, glucose presence 3+AbnormalNEGChillicothe Va Medical Center HospitalComment on above:Performed By: #### CDP, BMP, BNP, TROPI, DIME, PT, PTT ####[address] [place] [address] Urine, leukocyte esterase presenceTRACEAbnormalNEGChillicothe Va Medical Center HospitalComment on above:Result Comment: Performed at [address] [place], [facility]83 Performed By: #### CDP, BMP, BNP, TROPI, DIME, PT, PTT ####[address] [place] [address] Urine, pH7.0 [pH]Normal5.0-9.0[facility] HospitalComment on above:Performed By: #### CDP, BMP, BNP, TROPI, DIME, PT, PTT ####[address] [place] [address] Urine, protein presenceNegativeNormalNEGChillicothe Va Medical Center HospitalComment on above:Performed By: #### CDP, BMP, BNP, TROPI, DIME, PT, PTT ####[address] [place] [address] Urine, specific gravity1.010Normal 1.010-1.020[facility] HospitalComment on above:Performed By: #### CDP, BMP, BNP, TROPI, DIME, PT, PTT ####[address] [place] [address] Urobilinogen,UrNormalNormalNORMGalion HospitalComment on above:Performed By: #### CDP, BMP, BNP, TROPI, DIME, PT, PTT ####[address] [place] [address] CommentNOT REPORTED NormalGalion HospitalComment on above:Performed By: #### CDP, BMP, BNP, TROPI, DIME, PT, PTT ####[address] [place] [address] Urinalysis,Microon 02-16-2017-----NormalGalion Hospital Comment on above:Performed By: #### CDP, BMP, BNP, TROPI, DIME, PT, PTT ####[address] [place] [address] Urine WBC's10 TO 50Wgyhgw8-9TjokaGalion HospitalComment on above:Performed By: #### CDP, BMP, BNP, TROPI, DIME, PT, PTT ####[address] [place] [address] Urine, bacteria in sediment3+AbnormalNONEMercConnecticut Valley HospitalComment on above:Result Comment: Performed at [address] [place] [address] Performed By: #### CDP, BMP, BNP, TROPI, DIME, PT, PTT ####[address] [place] [address] Urine, epithelial cells in sediment2 TO 5Normal 0-25Mer[facility] HospitalComment on above:Performed By: #### CDP, BMP, BNP, TROPI, DIME, PT, PTT ####[address] [place] [address] Urine, erythrocytes0 TO 4Irvdin9-1Txyta Mountain View HospitalComment on above:Performed By: #### CDP, BMP, BNP, TROPI, DIME, PT, PTT ####[address] [place] [address] Epithelial, Renal NOT HVQAJTCGHubczn7Soemi [facility] View HospitalComment on above:Performed By: #### CDP, BMP, BNP, TROPI, DIME, PT, PTT ####[address] [place] [address] Mucus StrandsNOT REPORTEDNormalNONEMercy Mountain View HospitalComment on above:Performed By: #### CDP, BMP, BNP, TROPI, DIME, PT, PTT ####[address] [place] [address] Other ObservationsNOT REPORTEDNormalNREQMercy Mountain View HospitalComment on above: Performed By: #### CDP, BMP, BNP, TROPI, DIME, PT, PTT ####[address] [place] [address] TrichomonasNOT REPORTED NormalNONEMercy Mountain View HospitalComment on above:Performed By: #### CDP, BMP, BNP, TROPI, DIME, PT, PTT ####[address] [place] [address] Urine, amorphous sediment presence in sedimentNOT REPORTED NormalNONEMercy Mountain View HospitalComment on above:Performed By: #### CDP, BMP, BNP, TROPI, DIME, PT, PTT ####[address] [place] [phone], casts in sedimentNOT REPORTEDNoCity Hospital HospitalComment on above:Performed By: #### CDP, BMP, BNP, TROPI, DIME, PT, PTT ####[address] [place] [address] Urine, crystals in sedimentNOT REPORTEDNoNemours Children's Hospital, [place] HospitalComment on above: Performed By: #### CDP, BMP, BNP, TROPI, DIME, PT, PTT ####[address] [place] [phone], yeast presence in sedimentNOT REPORTEDBayhealth Medical Center HospitalComment on above:Performed By: #### CDP, BMP, BNP, TROPI, DIME, PT, PTT ####[address] [place] [address] XR CHEST PORTABLEon [id number] CHEST PORTABLEREPORT: Chest PA and lateralINDICATION: Chest painFINDINGS: The lungs are well expanded and clear bilaterally. No focal consolidation, pleural effusion or pneumothorax seen. Normal cardiac and mediastinal silhouettes. No free intraperitoneal air. Left-sided pacemaker in place. Right-sided Port-A-Cath in good position.Final report electronically signed by Stephany Villafana on 02/16/2017 10:40 AMIMPRESSION: Normal chestInterpreted by:LUIS Migueligned by:Stephany Villafana MD02/16/17Final resultNormMercy Health St. Anne HospitalLaboratory Studieson [id number] Drug Screen (T)[facility] Comment on above: TOXASSURE COMP DRUG ANALYSIS,UR Test Result Flag Units Drug Present Alcohol, [...] medication. Levetiracetam PRESENT Zonisamide PRESENT Quetiapine PRESENT Test Result Flag Units Ref Range Creatinine 59 mg/dL >=20 Declared Medications: Medication list was not provided. For clinical consultation, please call . Urine Drug Screen Interpretation.[facility]trComment on above:See report. Scanned copy available in EMR. Performed at: [employer] [address] [id number] Filling Hauler Weaving: Laura Damon MD, Phone: [phone] Vital Signs Date TimeVital SignValuePerforming HwazjrcabTlkdzbmg67-96-0859 10:57-0500Body uwbtzm131.48 cmMitchell Rice DO Work Phone: 1(488)[address] [place], [place] 7013011-11-2025 10:57-0500 Body mass index (BMI) [Ratio]49.7 kg/r6Yxxzmhct Rice DO Work Phone: 1(945)[address] [place], [place] 7013011-11-2025 10:57-0500 Body .8 [degF]Andrés Rice DO Work Phone: 1(897)[address] [place], [place] 7013011-11-2025 10:57-0500 Body iviyyi100.37 kgMitchell Rice DO Work Phone: 1(303)[address] [place], [place] 7013011-11-2025 10:57-0500 Diastolic blood zmgkfuej50 mm[Hg]Andrés Rice DO Work Phone: 1(853)[address] [place], [place] 7013011-11-2025 10:57-0500 Heart rate81 /minMitchell Rice DO Work Phone: 1(982)[address] [place], [place] 7013011-11-2025 10:57-0500 Respiratory rate18 /minMitchell Rice DO Work Phone: 1(328)[address] [place], [place] 7013011-11-2025 10:57-0500 SaO2% (BldA) [Mass fraction]99 %Andrés Rice DO Work Phone: 1(932)[address] [place], [place] 7013011-11-2025 10:57-0500 Systolic blood kctngiyf351 mm[Hg]Andrés Rice DO Work Phone: 1(591)[address] [place], [place] 7013010-02-2025 13:51-0400 Body tsuffn165.5 cmJustin Lavonne NAVAL ENGINE[employer] Work Phone: 1(500) [phone]-737245FqjuOlhcxj63-55-9429 13:51-0400Body mass index (BMI) [Ratio]51.21 kg/c9Aefebw Lavonne [employer] ENGINE[employer] Work Phone: 1(493) [phone]-433944YiszRtkemi61-20-9398 13:51-0400Body .01 kg Mihai Lavonne NAV[employer] ENGINEER Work Phone: GmslTkdwmq57-077195VeekXtarrr21-41-6601 13:51-0400Diastolic blood shyzzugo244 mm[Hg]Mihai Lavonne NAV[employer] ENGINEER Work Phone: QmsqDoemqg85-907099KzapEbuirg06-07-4790 13:51-0400Heart rate92 /minJustin Lavonne NAVAL ENGINEER Work Phone: 1(839) [phone]-163749JijuHexgmh58-81-3175 13:51-0400Systolic blood pressure 133 mm[Hg]Mihai Lavonne NAV[employer] ENGINEER Work Phone: KtwfJcwfhu97-372633XcffKpljyj63-96-0461 09:58-0400Body jrffwy347.48 cm Andrés Rice DO Work Phone: 1(035)6-[address] [place], [place] 2704009-29-2025 09:58-0400 Body mass index (BMI) [Ratio]50.3 kg/a2Ytggtvuo Rice DO Work Phone: 1(402)[address]09-29-2025 09:58-0400 Body .4 [degF]Andrés Rice DO Work Phone: 1(824)[address] [place], [place] 2704009-29-2025 09:58-0400 Body urlkdl309.87 kgMitchell Rice DO Work Phone: 1(797)4-[address] [place], [place] 2704009-29-2025 09:58-0400 Diastolic blood mm[Hg]Andrés Rice DO Work Phone: 1(964)2-[facility]09-29-2025 09:58-0400 Heart rate90 /minMitchell Rice DO Work Phone: [facility]09-29-2025 09:58-0400 Respiratory rate18 /minMitchell Rice DO Work Phone: 1(512)2-[address] [place], [place] 2704009-29-2025 09:58-0400 SaO2% (BldA) [Mass fraction]98 %Andrés Rice DO Work Phone: 1(202)4-[address] [place], [place] 6[address]3509-29-2025 09:58-0400 Systolic blood uxnavyah397 mm[Hg]Andrés Rice DO Work Phone: 1(574)[address]09-11-2025 10:47-0400 Body .5 Alison Resendez MD Work Phone: 1(635)975-[address] [place], [place] [address]Zbksqmkwvi43-06-7543 10:47-0400Body mass index (BMI) [Ratio]49.38 kg/g1SlhjtSergio Resendez MD Work Phone: 1(004)[address] [place], [place] [address]Qyebipfhux87-15-1716 10:47-0400Body etqhdk874.47 kgSergio Resendez MD Work Phone: 1(560)[address] [place], [place] [address]Vspszxgzjq53-68-9439 10:47-0400Diastolic blood mm[Hg]Sergio Resendez MD Work Phone: 1(828)[address] [place], [place] [address]Fhkabfuipp20-40-6843 10:47-0400Heart rate78 /min Sergio Resendez MD Work Phone: 1(615)[address] [place], [place] [address]Uqqfzfxjlk22-34-5555 10:47-0400Respiratory rate18 /minSergio Resendez MD Work Phone: 1(654)[address] [place], [place] [address]Qbdntrneai77-92-5598 10:47-6513ZnD0% (BldA) [Mass fraction]99 %Serigo Resendez MD Work Phone: [address] [place], [place] [address]Vqgbjypnjd65-11-9153 10:47-0400Systolic blood nfsuifug613 mm[Hg]Sergio Resendez MD Work Phone: 1(693)792-[address] [place], [place] [address]Hetsnwfecb01-18-5480 12:15-0400Body temperature 98.71 [degF]Elda Aguirre MD Work Phone: [facility] Dhnsga45-38-8561 12:15-0400Diastolic blood hugqeyqk38 mm[Hg]Elda Aguirre MD Work Phone: [facility] Lhidop35-46-4503 12:15-0400Heart rate 82 /minElda Aguirre MD Work Phone: [facility]07-14-2025 12:15-0400 Respiratory rate14 /minElda Aguirre MD Work Phone: [facility] Hcrhkj79-98-1581 12:15-0400Systolic blood mm[Hg]Elda [facility]irre MD Work Phone: [facility] [employer] Khgvta35-36-0002 08:12-2574LwF8% (BldA) [Mass fraction]94 %Elda Aguirre MD Work Phone: [facility] [employer] Potwzo36-14-3414 00:15-0400Body iviats382.5 cmElda Aguirre MD Work Phone: [facility] Lglgzi04-85-4181 00:15-0400Body mass index (BMI) [Ratio]44.91 kg/n3HalkrloElda Aguirre MD Work Phone: [facility] Ofrstg12-53-0807 00:15-0400Body .4 kgElda Aguirre MD Work Phone: [facility] Pdpzkh22-42-1033 10:55-0400Diastolic blood mm[Hg]Jim Velez DO Work Phone: 1(133) [phone]-527336OlszAslnjy08-62-8713 10:55-0400Heart lhey842 /min Jim Velez DO Work Phone: 1(528) [phone]-692071ElbgRlcxtw93-73-2817 10:55-0292GkB6% (BldA) [Mass fraction]98 %Jim Velez DO Work Phone: 1(217) [phone]-749863HrtgFaflab28-35-6155 10:55-0400Systolic blood pressure 121 mm[Hg]Jim Velez DO Work Phone: oh627-2728PclvNbmcbn57-547691ClxrUkubjs83-94-5555 13:49-0400Body .48 cmNo [facility] Work Phone: 1(311) 940-516804-07-2025 13:49-0400Body mass index (BMI) [Ratio]51.2 kg/m2No [facility] Work Phone: 1(378) 933-251604-07-2025 13:49-0400Body bawktiyiqyl53.6 [degF]No [facility] Work Phone: 1(656) 208-538304-07-2025 13:49-0400Body ctlahe651.01 kgNo [facility] Work Phone: 1(987) 475-806104-07-2025 13:49-0400Diastolic blood ozyhltfk31 mm[Hg] No [facility] Work Phone: 1(484) 568-357904-07-2025 13:49-0400Heart rate94 /[facility] Work Phone: 1(932) 472-259304-07-2025 13:49-0400Respiratory rate16 /[facility] Work Phone: 1(950) 108-370004-07-2025 13:49-5728RwT8% (BldA) [Mass fraction]99 % No [facility] Work Phone: 1(873) 678-348804-07-2025 13:49-0400Systolic blood hqxsinik036 mm[Hg] No [facility] Work Phone: 1(158) 100-997103-11-2025 15:13-0400Diastolic blood abvggmtz70 mm[Hg] Stephany RUBALCAVA-C Work Phone: oh456-9534NzpbOgysgt47-643098DxyhXbyple33-48-1908 15:13-0400Systolic blood pressure 122 mm[Hg]Stephany RUBALCAVA-C Work Phone: oh146-4873IdimNpoams97-839737BwgiQpwmws82-21-6237 14:25-0400Body ibdkxw188.5 cm Stephany RUBALCAVA-C Work Phone: 1(330) [phone]-407473AlavCwxvhh46-95-0879 14:25-0400Heart rate88 /minStephany Pelayo PA-C Work Phone: 1(825) [phone]-134569PvzzSxfbqj66-53-9066 14:25-2382InS8% (BldA) [Mass fraction]95 %Stephany Pelayo PA-C Work Phone: 1(290) [phone]-930467VmppDohouv01-03-7969 10:57-0500Body iqwvis341.5 cm Stephany Pelayo PA-C Work Phone: 1(778) [phone]-101497IlorOdutsy36-32-5168 10:57-0500Diastolic blood mquybema13 mm[Hg]Stephany Pelayo PA-C Work Phone: 1(791) [phone]g23-897382FdycJbayzn35-96-5400 10:57-0500Heart rate87 /minStephany Pelayo PA-C Work Phone: 1(224) [phone]-401110RepyNrdzjz13-09-2370 10:57-0664RnI3% (BldA) [Mass fraction]98 %Stephany Pelayo PA-C Work Phone: 1(350) [phone]-079285LmzlQzamvn02-64-4983 10:57-0500Systolic blood pressure 116 mm[Hg]Stephany Pelayo PA-C Work Phone: 1(924) [phone]-475763BjvvLqgdgy68-72-4035 08:26-0500Body colpuv303.5 cmSoto Dolce DPM FACFAS Work Phone: [facility] CenterPzkqqsvgxw73-63-9217 08:26-0500Body mass index (BMI) [Ratio]42.62 kg/m2Marc Dolce DPM FACFAS Work Phone: [facility] CenterVbjlzglmtx45-77-3921 08:26-0500Body qfappc360.69 kgMarc Dolce DPM FACFAS Work Phone: [facility] CenterThgcylunyr94-10-9862 08:26-0500Diastolic blood skmadloh30 mm[Hg]Soto Box DPM FACFAS Work Phone: [facility] CenterYldmdabbce63-93-4055 08:26-0500Heart rate77 /min Soto Box DPM FACFAS Work Phone: [facility] CenterNmrayabdoc62-19-8063 08:26-0500Systolic blood mm[Hg]Soto Box DPJoel FACFAS Work Phone: [facility] CenterVnfzcdbudf93-13-9474 08:32-0500Body aznghv326.5 cmJunemesio Elizalde CNP Work Phone: 1(941) [phone]csdFdsqfs10-62-4285 08:32-0500Body mass index (BMI) [Ratio]51.32 kg/s2Iumkxfnemesio Elizalde CNP Work Phone: 1(409) [phone]-803703LtnxEzlcps12-12-6711 08:32-0500Body fomsjb941.28 kg Mihai Elizalde CNP Work Phone: 1(139) [phone]o36-073951BcqcSbgyak96-78-8548 08:32-0500Diastolic blood orxqmphy633 mm[Hg]Mihai Elizalde CNP Work Phone: 1(564) [phone]-284472KvysEhlrhf85-12-2903 08:32-0500Heart rate90 /minJunemesio Elizalde CNP Work Phone: 1(567) [phone]v29-235780UjlsRexqkt49-31-6735 08:32-0500Systolic blood pressure 173 mm[Hg]Mihai Elizalde CNP Work Phone: 1(173) 700-9883267-2844DtkwZqjchi20-688053DrjoPazzgm95-54-0870 13:41-0500Respiratory rate16 /min Ali Kamille DO Work Phone: 1(937) [phone]-082567KprhRlbgjl47-03-2612 11:37-0500Body guejxeucdwx40.5 [degF]Ali Kamille DO Work Phone: 1(488) 820-7986817-8756BubbAuuwut12-256095ShzfRnykrn13-35-2816 11:37-0500Diastolic blood twfllldy24 mm[Hg]Ali Kamille DO Work Phone: 1(937) [phone]-691174SnonCbjhkb26-85-4804 11:37-0500Heart rate78 /minAli Kamille DO Work Phone: 1(627) [phone]-852079SyhxXmivdt43-87-0365 11:37-9952NxX9% (BldA) [Mass fraction]98 %Ali Kamille DO Work Phone: 1(520) [phone]-268064MrscGcztwf46-35-6610 11:37-0500Systolic blood pressure 114 mm[Hg]Malcolm Fabianmi DO Work Phone: 1(929) [phone]-037854KxzvIqggbk53-11-1496 03:00-0500Body mass index (BMI) [Ratio]51.73 kg/m2Ali Kamille DO Work Phone: 1(601) [phone]-300490YebhDcjwxw64-87-0713 03:00-0500Body kylqjx090.3 kgAli Kamille DO Work Phone: 1(570) [phone]-244856QjcvZhlqea52-35-5148 01:27-0500Body tusmfe543.5 cmAli Kamille DO Work Phone: 1(702) [phone]-991666IswrKfxvnf35-36-6541 15:44-0500Diastolic blood znjoxpmi66 mm[Hg]Ruthy Dong MD Work Phone: 1(379) [phone]-787688QzaiYztapd58-81-0515 15:44-0500Heart rate66 /minRuthy Dong MD Work Phone: 1(878) [phone]4-452555UdcnVhyrwl31-62-9343 15:44-0500Respiratory rate18 /min Ruthy Dong MD Work Phone: 1(870) [phone]-843361TddxTozpqj05-79-3236 15:44-8049EvK0% (BldA) [Mass fraction]94 %Ruthy Dong MD Work Phone: 1(837) [phone]FbyjIkzrtk39-98-2931 15:44-0500Systolic blood pressure 149 mm[Hg]Ruthy Dong MD Work Phone: 1(241) [phone]-465692VfauMxpnlg77-21-1788 11:24-0500Body pviphcfotiz98.81 [degF]Ruthy Dong MD Work Phone: 1(336) [phone]-665231KwpnWuvaxg79-40-3026 04:29-0500Body mass index (BMI) [Ratio]49.84 kg/m2Ruthy Dong MD Work Phone: 1(693) [phone]-185027RxwmZqiffy14-04-1916 04:29-0500Body gyccpt579.6 kgRuthy Dong MD Work Phone: 1(252) [phone]-640802XotrXdkfsc02-30-9025 01:58-0400Body kynsuc449.5 Elvi Dong MD Work Phone: 1(219) [phone]uvgGaqgpt38-20-1989 11:23-0400Diastolic blood eapsfbsu05 mm[Hg]Stephany Morales PA-C Work Phone: 1(636) [phone]-722211JvoeJrkahz18-17-6432 11:23-0400Systolic blood pressure 142 mm[Hg]Stephany McCague PA-C Work Phone: 1(855) [phone]-036655LptiOhzcjk90-00-6139 10:41-0400Body dquotj925.5 cm Stephany McCmanuela PA-C Work Phone: 1(711) [phone]74TqasFtlhaj80-40-8860 10:41-0400Heart imef664 /minLaura McCague PA-C Work Phone: 1(340) [phone]94TwmiWgzqet02-16-1813 10:41-7458QzI3% (BldA) [Mass fraction]98 %Stephany Walkerague PA-C Work Phone: 1(578) [phone]64MgetHmbjfc22-04-7434 11:41-0400Diastolic blood ebvssvkk538 mm[Hg]Stephany Walkerague PA-C Work Phone: 1(461) [phone]-721623JvxkGfyjrt93-16-0086 11:41-0400Systolic blood pressure 193 mm[Hg]Stephany McCmanuela PA-C Work Phone: 1(424) [phone]-553387NwsmBcsqiy33-33-7881 11:03-0400Body poenny228.5 cm Stephany McCmanuela PA-C Work Phone: 1(809) [phone]bqmBytkri61-43-9394 11:03-0400Heart rate89 /minLaura McCague PA-C Work Phone: 1(483) [phone]414VwusPrbupa19-24-5945 11:03-3054SlT4% (BldA) [Mass fraction]97 %Stephany McCmanuela PA-C Work Phone: 1(981) [phone]yslQblhzx83-91-7782 16:04-0400Body mass index (BMI) [Ratio]51.21 kg/f8EbjhwbxofJim Velez DO Work Phone: 1(267) [phone]-967168KwdkHolpvq70-86-3631 16:04-0400Body dasjnr639.01 kg Jim Velez DO Work Phone: 1(214) [phone]-941166GnpgTjkgoy49-94-6323 16:04-0400Diastolic blood oxkyighr574 mm[Hg]Jim Velez DO Work Phone: 1(582) [phone]773IjnmUprbkh18-36-4284 16:04-0400Heart rate96 /min Jim Velez DO Work Phone: 1(396) [phone]-230258RnalZubxcc65-99-2686 16:04-0400Respiratory rate18 /min Jim Velez DO Work Phone: 1(533) [phone]-465213HemaVzkzuf02-86-7585 16:04-5793AiP6% (BldA) [Mass fraction]96 %Jim Velez DO Work Phone: 1(690) [phone]-308905QwleZewvrq76-25-6469 16:04-0400Systolic blood pressure 181 mm[Hg]Jim Velez DO Work Phone: 1(662) [phone]-444894PbsoDtlmgm06-65-0611 13:36-0400Body .5 cm Rafaela Medrano CNP Work Phone: [facility]Comment [facility] above:per kv38-49-0094 13:36-0400 Body mass index (BMI) [Ratio]51.03 kg/d9CweopfgRafaela Ventural [employer] ENG[employer] Work Phone: 1(280) [phone]-131047IzblAcsxao65-69-2159 13:36-0400Body wcnoko236.55 kg Rafaela Medrano [employer] Work Phone: 1(259) [phone]-682349CanqEsvsoz48-17-2104 13:36-0400Diastolic blood wlgbhuba62 mm[Hg]Rafaela Ventural [employer] ENGINE[employer] Work Phone: 1(323) [phone]-562217IqtaRdexgs54-58-3266 13:36-0400Heart rate90 /min Rafaela Ventural NAV[employer] ENGINE[employer] Work Phone: 1(674) [phone]05UjrvPfsnth01-40-4289 13:36-0259CwV6% (BldA) [Mass fraction]94 %Rafaela Medrano NAV[employer] ENGINE[employer] Work Phone: 1(654) [phone]-256601AtzoTdskwt16-83-2207 13:36-0400Systolic blood pressure 139 mm[Hg]Rafaela Medrano NAV[employer] ENGINE[employer] Work Phone: 1(807) [phone]-490012HksnEfspaj31-79-1905 08:56-0400Respiratory rate16 /min Harshad Rizzo MD Work Phone: 1(242) [phone]-539541IpacYrddxm82-59-1423 08:18-0400Body aeelpporrtj01.7 [degF]Harshad Rizzo MD Work Phone: AvcnDsfzuh79-583384NkddPdecxz11-89-0193 08:18-0400Diastolic blood eyyssdvb28 mm[Hg]Harshad Rizzo MD Work Phone: 1(391) [phone]-220516BlhiHbwtcd72-76-8722 08:18-0400Heart rate65 /Mariely Rizzo MD Work Phone: 1(862) [phone]-919832LkdoGdnhja62-86-3896 08:18-0400Systolic blood pressure 140 mm[Hg]Harshad Rizzo MD Work Phone: 1(546) [phone]-192274SdyiTlzxuk18-82-2526 02:58-0400Body mass index (BMI) [Ratio]52.62 kg/m2Harshad Rizzo MD Work Phone: 1(820) [phone]-524588ZnqeEprcih65-33-6364 02:58-0400Body uyrwux864.5 kgHarshad Rizzo MD Work Phone: 1(679) [phone]52037ExreObcesb87-00-5416 02:58-9609PbK4% (BldA) [Mass fraction]94 %Harshad Rizzo MD Work Phone: SofoRbixhg38-244950IbskJaueff84-12-5309 14:36-0400Body rclcwa909.5 Jose Rizzo MD Work Phone: 1(686) [phone]91HevuNlffxg21-84-7240 13:59-0400Diastolic blood samojaui80 mm[Hg]Stephany Pelayo PA-C Work Phone: 1(930) [phone]09608DsdpFrszor32-14-1852 13:59-0400Systolic blood pressure 139 mm[Hg]Stephany Pelayo PA-C Work Phone: 1(689) [phone]-562044AoklAzyxqd72-37-2222 13:38-0400Body sfmyun121.5 cm Stephany Walkermanuela PA-C Work Phone: 1(523) [phone]-043252YvevUecjgh79-08-5446 13:38-0400Heart rate96 /minStephany Walkermanuela PA-C Work Phone: 1(484) [phone]698NcetJlonta97-83-0798 13:38-4783YaE9% (BldA) [Mass fraction]95 %Stephany Walkermanuela PA-C Work Phone: oh423-9038ApocRhbazy98-567496DmqeFdiqrd91-67-8419 13:53-0400Body mass index (BMI) [Ratio]47.55 kg/w8EwdgvtgmbJim Velez DO Work Phone: 1(550) [phone]-511583HgdpVdqurq97-92-0801 13:53-0400Body tpkumo137.94 kg Jim Velez DO Work Phone: 1(572) [phone]-072423JhrgMtruxc13-88-9806 13:53-0400Diastolic blood kthdavue974 mm[Hg]Jim Velez DO Work Phone: 1(331) [phone]-104139ZdeoOccqyy95-19-5043 13:53-0400Heart rate91 /min Jim Velez DO Work Phone: 1(324) [phone]0-140530TlcqChjccg87-30-6348 13:53-0400Respiratory rate18 /min Jim Velez DO Work Phone: 1(859) [phone]NgdfEzzrmj71-02-1945 13:53-0862IwU0% (BldA) [Mass fraction]93 %Jim Velez DO Work Phone: 1(682) [phone]-867142YhapPgrwmp21-02-8348 13:53-0400Systolic blood pressure 166 mm[Hg]Jim Velez DO Work Phone: 1(952) [phone]-836049PjvtPlggqr11-92-6710 13:53-0400Body tvvhuq153.5 cm Sahara Sanchez MD Work Phone: 1(861) [phone]124RukhEgiyed27-90-1379 13:53-0400Body mass index (BMI) [Ratio]49.93 kg/b8JttrclrSahara Sanchez MD Work Phone: 1(991) [phone]-695116WdmmTiwqcn69-26-4311 13:53-0400Body llpmda107.83 kg Sahara Sanchez MD Work Phone: 1(888) [phone]iclql95-72-1480 13:53-0400Diastolic blood ceedofbo46 mm[Hg]Sahara Sanchez MD Work Phone: 1(411) [phone]xusrw42-98-9909 13:53-0400Heart rate92 /min Sahara Sanchez MD Work Phone: 1(214) [phone]qqkuw13-35-7873 13:53-0400Respiratory rate16 /min Sahara Sanchez MD Work Phone: 1(247) [phone]Uovydk79-60-6201 13:53-0400Systolic blood pressure 153 mm[Hg]Sahara Sanchez MD Work Phone: 1(645) [phone]stleb65-97-0388 15:34-0400Body corasj079.5 cm Stephany Pelayo PA-C Work Phone: 1(816) [phone]ybllm57-90-4069 15:34-0400Body dxrhjcboaau76.01 [degF]Stephany Pelayo PA-C Work Phone: 1(392) [phone]ddqbs85-35-7180 15:34-0400Diastolic blood vpwriuye96 mm[Hg]Stephany Pelayo PA-C Work Phone: 1(237) [phone]nulus98-78-3626 15:34-0400Heart dlda592 /minStephany Pelayo PA-C Work Phone: 1(213) [phone]nsdjz61-22-9427 15:34-9229QzX9% (BldA) [Mass fraction]98 %Stephany Pelayo PA-C Work Phone: 1(375) [phone]vptel82-86-2675 15:34-0400Systolic blood pressure 131 mm[Hg]Stephany Pelayo PA-C Work Phone: 1(403) [phone]piWangca28-28-6021 15:47-0400Diastolic blood roacrcld11 mm[Hg]Anders London MD Work Phone: [facility]06-17-2024 15:47-0400Heart rate90 /Arden London MD Work Phone: [facility]06-17-2024 15:47-0400Systolic blood ypylxgrv984 mm[Hg]Anders London MD Work Phone: 1(138)2287374[facility]05-21-2024 11:49-0400 Diastolic blood hltbyihl556 mm[Hg]Stephany Pelayo PA-C Work Phone: 1(890) [phone]rhneh47-43-1998 11:49-0400Systolic blood pressure 169 mm[Hg]Stephany Pelayo PA-C Work Phone: 1(655) [phone]pSwwdzw70-12-9679 11:24-0400Body [degF]Stephany Pelyao PA-C Work Phone: 1(488) [phone]nazzc04-16-1459 11:24-0400Heart rate93 /minStephany Pelayo PA-C Work Phone: 1(890) [phone]wrlyp19-17-9316 11:24-8946NiS0% (BldA) [Mass fraction]95 %Stephany Pelayo PA-C Work Phone: 1(906) [phone]aziuc75-62-9900 15:04-0400Diastolic blood cqawlkwb34 mm[Hg]Zoë Garcia MD Work Phone: 1(124) [phone]hewlq90-79-5911 15:04-0400Heart rate98 /min Zoë Garcia MD Work Phone: 1(717) [phone]qSgclue94-34-4435 15:04-2911QzP5% (BldA) [Mass fraction]96 %Zoë Garcia MD Work Phone: 1(547) [phone]iofRfxznl75-42-9614 15:04-0400Systolic blood pressure 169 mm[Hg]Zoë Garcia MD Work Phone: 1(394) [phone]XipoRcpoed85-39-9492 13:07-0400Diastolic blood jinnxmyl121 mm[Hg]Virgen Campos MD Work Phone: 1(917) [phone]lSbtofp67-00-2136 13:07-0400Heart rate97 /min Virgen Campos MD Work Phone: 1(281) [phone]wicmy89-32-6905 13:07-8316SxV8% (BldA) [Mass fraction]97 %Virgen Campos MD Work Phone: 1(289) [phone]fdtvp04-38-3605 13:07-0400Systolic blood pressure 166 mm[Hg]Virgen Campos MD Work Phone: 1(639) [phone]qxcgm21-51-8595 14:30-0400Diastolic blood gxcaucgk51 mm[Hg]Stephany Pelayo PA-C Work Phone: 1(213) [phone]hqepw95-64-3896 14:30-0400Systolic blood pressure 138 mm[Hg]Stephany Pelayo PA-C Work Phone: 1(275) [phone]pfxCirsgf08-43-7890 13:43-0400Body doictp011.5 cm Stephany Pelayo PA-C Work Phone: 1(650) [phone]qqqmw91-81-4038 13:43-0400Body mass index (BMI) [Ratio]50.66 kg/m1VttrgStephany Pelayo PA-C Work Phone: 1(630) [phone]lbtez20-97-8081 13:43-0400Body msnhowmlhrw06.7 [degF]Stephany Pelayo PA-C Work Phone: 1(428) [phone]fgcrp55-06-2103 13:43-0400Body jrocrq735.65 kg Stephany Pelayo PA-C Work Phone: 1(515) [phone]izbJvgeib18-76-8646 13:43-0400Heart rate91 /minStephany Pelayo PA-C Work Phone: 1(582) [phone]rZnqygx13-56-7299 13:43-8874YoO8% (BldA) [Mass fraction]98 %Stephany Pelayo PA-C Work Phone: 1(663) [phone]pygoq60-68-2255 19:31-0400Diastolic blood nryleshs39 mm[Hg]Floyd Mercado MD Work Phone: 1(430)[address]04-03-2024 19:31-0400Systolic blood ztkedkxq222 mm[Hg]Floyd Mercado MD Work Phone: 1(217)[address] [place], [place] 7186604-03-2024 17:47-0400Body nwsocghftfk78.39 [degF]Floyd Mercado MD Work Phone: 1(463)[address] [place], [place] 7186604-03-2024 17:47-0400Heart exja068 /minFloyd Mercado MD Work Phone: 1(885)[address] [place], [place] 7186604-03-2024 17:47-0400 Respiratory rate15 /minFloyd Mercado MD Work Phone: 1(277)[address] [place], [place] 7186604-03-2024 17:47-2354VhX9% (BldA) [Mass fraction]99 %Floyd Mercado MD Work Phone: 1(272)[address]03-11-2024 14:22-0400 Diastolic blood osuryppt51 mm[Hg]Zoë Garcia MD Work Phone: 1(829) [phone]qdpbr99-70-4469 14:22-0400Heart voux389 /min Zoë Garcia MD Work Phone: 1(187) [phone]ajvnh12-98-9200 14:22-0400Systolic blood pressure 140 mm[Hg]Zoë Garcia MD Work Phone: 1(256) [phone]diSnqnnd47-34-9533 14:54-0500Diastolic blood wlzqguza82 mm[Hg]Harris Bhat MD Work Phone: 1(419) [phone]bghqb85-54-9047 14:54-0500Systolic blood pressure 162 mm[Hg]Harris Bhat MD Work Phone: 1(564) [phone]djMssdlt20-81-3785 14:40-0500Body mlsauq903.5 cm Harris Bhat MD Work Phone: 1(491) [phone]dpDldulc96-19-5838 14:40-0500Body jrzdgpoktbb86.39 [degF]Harris Bhat MD Work Phone: 1(301) [phone]ttaik88-00-9020 14:40-0500Heart rate96 /minHarris Bhat MD Work Phone: AykvQpnoyv33-600644VxzsJabohz64-05-1953 14:40-2675OqZ9% (BldA) [Mass fraction]98 %Harris Bhat MD Work Phone: RqueEjwnls12-945037LlphEhpekp85-48-9863 15:09-0500Body gcultu479.5 cm Stephany Pelayo PA-C Work Phone: 1(866) [phone]cdxit40-77-8388 15:09-0500Body mass index (BMI) [Ratio]47.55 kg/h5WylegStephany Pelayo PA-C Work Phone: FwogJhdayw66-215075YlgvXsfnex00-33-5885 15:09-0500Body egwvxpfatse26.3 [degF]Stephany Pelayo PA-C Work Phone: 1(619) [phone]utkyx60-26-5504 15:09-0500Body afmhlu527.94 kg Stephany Pelayo PA-C Work Phone: 1(317)[phone]mzzTxyoom56-66-2592 15:09-0500Diastolic blood mkaytwly53 mm[Hg]Stephany Pelayo PA-C Work Phone: 1(155)[phone]lshNzeaca72-00-0780 15:09-0500Heart rate95 /minStephany Pelayo PA-C Work Phone: 1(686) [phone]ypqxf11-32-9482 15:09-0270MmG8% (BldA) [Mass fraction]97 %Stephany Pelayo PA-C Work Phone: 1(050)[phone]inwBchvin96-10-0407 15:09-0500Systolic blood pressure 138 mm[Hg]Stephany Pelayo PA-C Work Phone: 1(814) [phone]gncxd05-67-3077 11:40-0500Diastolic blood qxixfsru734 mm[Hg]Stephany Pelayo PA-C Work Phone: 1(103) [phone]aaLchltn44-96-0448 11:40-0500Systolic blood pressure 182 mm[Hg]Stephany Pelayo PA-C Work Phone: 1(739) [phone]cpker35-66-8596 11:31-0500Body mass index (BMI) [Ratio]47.76 kg/z1JrjmnStephany Pelayo PA-C Work Phone: 1(176) [phone]upzhc95-78-4184 11:31-0500Body xculpatukuy02.3 [degF]Stephany Pelayo PA-C Work Phone: 1(577) [phone]zymRbthro27-55-0750 11:31-0500Body .43 kg Stephany Pelayo PA-C Work Phone: 1(768) [phone]pkpgl97-92-7860 11:31-0500Heart rate94 /minStephany Pelayo PA-C Work Phone: 1(391) [phone]seghx17-69-9017 11:31-5601AzK0% (BldA) [Mass fraction]98 %Stephany Pelayo PA-C Work Phone: 1(887) [phone]siqhy73-78-3382 15:45-0500Body .81 [degF]Ama Brenden CXWpigXmekbq86-47-2204 15:45-0500Diastolic blood pressure 108 mm[Hg]Ama Brenden DKOaftRpyzyb30-64-6481 15:45-0500Heart rate72 /min Ama Aaronut AYVwqzPbmtkm57-38-0552 15:45-0500Respiratory rate18 /minAma Aaronut FGPhoaCbwcdz75-03-1679 15:45-9667KyI1% (BldA) [Mass fraction]96 %Ama Brenden RFStscTenkkm97-10-3689 15:45-0500Systolic blood qqiblfxt000 mm[Hg]Ama Wilcox YUTkcsKauopr32-30-7112 15:14-0500Body vvgtesqcvoo67.5 [degF]Keyla Johnson EIEZhtoDmcksy09-30-2817 15:14-0500Diastolic blood nhmqedde890 mm[Hg] Keyla Johnson SYYTmojVrbrkn04-49-9143 15:14-0500Heart rate87 /min Keyla Johnson BLEOcnrJnynkw81-29-5903 15:14-0500Respiratory rate13 /min Keyla Johnson VBFLaabBniuih84-71-5240 15:14-8496CyJ1% (BldA) [Mass fraction]97 %Keyla Johnson MQFRqtwDiuwci48-81-3789 15:14-0500Systolic blood evxtdxif108 mm[Hg]Keyla Johnson WLARqulAziktb58-35-2731 16:30-0500 Body htmmbaleleq74.1 [degF]Cece Colin AAMivlSlkgnd05-50-3955 16:30-0500 Diastolic blood nsgdpfei53 mm[Hg]Cece Colin UBVrmsFcgccd15-80-0903 16:30-0500 Heart rate90 /minpita Colin KPNoudMvrtes80-67-4612 16:30-0500Respiratory rate 17 /minCece Colin UCOofbLmpfcb88-73-0048 16:30-8891FeZ5% (BldA) [Mass fraction]98 %Cece Colin TEPitkYcmoga97-22-5929 16:30-0500Systolic blood metzopzv892 mm[Hg]Cece Colin LXFktkAeajtk78-72-8264 09:33-0500Body temperature 98.4 [degF]Nikko Pratt IVJWhrtTgnfdl88-44-2720 09:33-0500Diastolic blood xfzyfmpc15 mm[Hg]Nikko Terence ELLSoplMlsvbl42-70-3288 09:33-0500Heart rate77 /min Nikko Terence SCCKmwfYnhstp41-35-8286 09:33-0500Respiratory rate17 /minNikko Terence YLFUhujTtiyct26-06-2438 09:33-1267AlL9% (BldA) [Mass fraction]96 %Nikko Pratt OWCUhwuNmzphv59-93-9771 09:33-0500Systolic blood gocpfspa868 mm[Hg]Nikko Pratt UTHYbbqOlbjhz72-45-2305 12:04-0500Body oougxkpugrd91.1 [degF][facility] CenterZrfvLsjetp82-54-5859 12:04-0500Diastolic blood aieragom46 mm[Hg][facility] CenterZefjHdvveo96-32-7891 12:04-0500Heart rate78 /minLisa Padron [facility] 04-08-2023 12:04-0500Respiratory rate13 /minLisa Padron JXBdpvVeesmk38-04-4522 12:04-6275LnF7% (BldA) [Mass fraction]99 %Lisa Padron ZOYrptAeewsj59-72-5975 12:04-0500Systolic blood cifftzmc732 mm[Hg]Lisa Padron WWHwuaUslxwh21-47-7084 11:18-0500Body .71 [degF]Carlitos Carrera KENFnylLjzyut56-44-6114 11:18-0500Diastolic blood resohtoq90 mm[Hg]Carlitos Carrera [facility] 04-08-2023 11:18-0500Heart rate76 /minCarlitos Carrera JOMYuypIncaoy23-33-4235 11:18-0500Respiratory rate16 /minCarlitos Carrera QOHSutzKlxwju75-08-1810 11:18-9631JhC3% (BldA) [Mass fraction]99 %Carlitos Carrera DWISxqxVbvjnw64-52-0281 11:18-0500Systolic blood jkgbbiyj823 mm[Hg]Carlitos Carrera [facility] 04-01-2023 00:00-0500Body jdokgyzmspj08.6 [degF]Kassidy Wick [facility] 04-01-2023 00:00-0500Diastolic blood kypumxru38 mm[Hg]Kassidy Wick [facility] 04-01-2023 00:00-0500Heart rate60 /minKassidy Wick UVDarrKwqkye08-40-2481 00:00-0500Respiratory rate16 /minKassidy iWck UJIpetRrtlra82-95-6251 00:00-0500 SaO2% (BldA) [Mass fraction]100 %Kassidy Wick FODqcoIgdirp84-16-7119 00:00-0500 Systolic blood sevxhzxp761 mm[Hg]Kassidy Wick ZIRyeeJollic87-00-0629 11:57-0500 Body .81 [degF]Harshad Rizzo MD Work Phone: 1(243) [phone]nrteu37-98-5104 11:57-0500Diastolic blood zlimhmxp95 mm[Hg]Harshad Rizzo MD Work Phone: 1(282) [phone]oobGgypwu89-92-1039 11:57-0500Heart rate65 /Mariely Rizzo MD Work Phone: 1(277) [phone]etkcw08-19-1987 11:57-1589CbF1% (BldA) [Mass fraction]98 %Harshad Rizzo MD Work Phone: 1(163) [phone]pzDzjxpe54-23-4685 11:57-0500Systolic blood pressure 97 mm[Hg]Harshad Rizzo MD Work Phone: 1(964) [phone]hMvlnzd10-94-3719 07:23-0500Respiratory rate15 /min Harshad Rizzo MD Work Phone: 1(711) [phone]706MtopTgbycm45-11-9567 14:38-0500Body nacygy416.5 Jose Rizzo MD Work Phone: 1(861) [phone]tXhmcsa80-47-3158 14:38-0500Body mass index (BMI) [Ratio]46.81 kg/m2Harshad Rizzo MD Work Phone: 1(754) [phone]khpXeqajj08-06-3962 14:38-0500Body rlaodx357.1 kgHarshad Rizzo MD Work Phone: 1(313) [phone]rtUzehmq41-34-0207 08:00-0400Respiratory rate16 /min Harshad Rizzo MD Work Phone: 1(427) [phone]vvMaehtf18-83-1424 07:36-0400Body sbuvxjjpzkl45.9 [degF]Harshad Rizzo MD Work Phone: 1(362) [phone]slqZslgze95-64-2973 07:36-0400Diastolic blood kimsxqfu70 mm[Hg]Harshad Rizzo MD Work Phone: 1(890) [phone]xbGgpdws82-08-0948 07:36-0400Heart rate89 /minSher Matthias STEVENS Work Phone: 1(919) [phone]vhcGtmoce66-56-5510 07:36-6352ZcF8% (BldA) [Mass fraction]99 %Harshad Rizzo MD Work Phone: GltzJdewir11-078917ArqtXpzvcz06-66-5909 07:36-0400Systolic blood pressure 111 mm[Hg]Harshad Rizzo MD Work Phone: 1(632) [phone]pawBpagnj70-13-3056 04:34-0400Body mass index (BMI) [Ratio]46.53 kg/m2Harshad Rizzo MD Work Phone: 1(124) [phone]MteaDjcdnb99-87-3168 04:34-0400Body .4 kgHarshad Rizzo MD Work Phone: 1(768) [phone]xaIudrun82-41-4819 02:46-0400Body nmupfg137.5 Jose Rizzo MD Work Phone: 1(750) [phone]lzuDccxoq49-69-3479 15:24-0400Body ybtvwg626.5 cm Josué Mellis DO Work Phone: 1(411) [phone]annHprfnr23-80-0162 15:24-0400Body mass index (BMI) [Ratio]45.73 kg/m7Lzmiq Mellis DO Work Phone: 1(326) [phone]rhiIcncxu89-70-6263 15:24-0400Body zcwosk660.4 kg Josué Mellis DO Work Phone: 1(911) [phone]483HzrrNkafhi94-31-6608 06:43-0400Diastolic blood pwsjxryn93 mm[Hg]Jocelyn Bowen MD Work Phone: 1(987) [phone]VlwlqJjiiwi03-11-2407 06:43-0400Heart rate62 /minJocelyn Bowen MD Work Phone: MoxqtFentoe06-961134AyezpPkvpot64-36-6507 06:43-2182BeK3% (BldA) [Mass fraction]96 %Jocelyn Bowen MD Work Phone: DtwfnEbunmb70-147474OywqxMgsqed63-10-7818 06:43-0400Systolic blood mm[Hg]Jocelyn Bowen MD Work Phone: [phone])[phone]DkddeMdmlsu21-82-0655 19:48-0400Body ptwjufmnuon53.59 [degF]Jocelyn Bowen MD Work Phone: EhjtnVhogbi67-459531XcizkDiajwu23-57-7128 19:48-0400Respiratory rate17 /Robin Bowen MD Work Phone: 1(297) [phone]3-549040LcuyuMsicjs92-65-1517 18:21-0400Diastolic blood yfllvpxb062 mm[Hg]Preston Charli [address]05-15-2023 18:21-0400Heart ucqp546 /minPreston Lugo [address] [place], [place] 7165505-15-2023 18:21-0400Mean blood odrngksr149 mm[Hg]Preston Lugo [address] [place], [place] 7165505-15-2023 18:21-0400 Respiratory rate18 /minPreston Lugo [address] [place], [place] 7165505-15-2023 18:21-6382RsH9% (BldA) [Mass fraction]99 %Preston Lugo [address] [place], [place] 7165505-15-2023 18:21-0400 Systolic blood cwescvlw619 mm[Hg]Preston Lugo [address] [place], [place] 7165505-15-2023 17:00-0400 Diastolic blood wwrinfvc024 mm[Hg]Preston Lugo [address] [place], [place] 7165505-15-2023 17:00-0400Heart epdz180 /minPreston Lugo [address]05-15-2023 17:00-0400Mean blood rrvatuzp012 mm[Hg]Preston Lugo [address] [place], [place] 7165505-15-2023 17:00-0400 Respiratory rate16 /minPreston Lugo [address] [place], [place] 7165505-15-2023 17:00-4348SiZ7% (BldA) [Mass fraction]97 %Preston Lugo [address] [place], [place] 7165505-15-2023 16:00-0400 Diastolic blood oktegldm359 mm[Hg]Preston Lugo [address]05-15-2023 16:00-0400Mean blood amqmolni071 mm[Hg]Preston Lugo [address] [place], [place] 7165505-15-2023 16:00-7175KpH3% (BldA) [Mass fraction]100 %Preston Lugo [address] [place], [place] 7165505-15-2023 16:00-0400 Systolic blood hotcfyhh784 mm[Hg]Preston Lugo [address]05-15-2023 14:26-0400Body pvbnguztjvy90.24 [degF]Preston Lugo [address] [place], [place] 7165505-15-2023 14:26-0400Heart bgsr783 /Jhonathan Lugo [address] [place], [place] 7165504-24-2023 15:00-0400 Hourly RoundingManinder Kinza [facility]04-24-2023 15:00-0400 Promise to ReturnManinder Kinza [facility]04-24-2023 14:00-0400 Hourly RoundingManinder Kinza [facility]04-24-2023 14:00-0400 Promise to ReturnPepe Clearyer [address] [place], [place] 5280604-24-2023 13:00-0400 Hourly RoundingIoniarandolph Clearyer [address] [place], [place] 5280604-24-2023 13:00-0400 Promise to ReturnPepe Clearyer [address] [place], [place] 5280604-24-2023 12:00-0400Blood Pressure LocationIoniarandolph Clearyer [address] [place], [place] 0626804-24-2023 12:00-0400Body dxdsgnitdbx20.06 [degF]Peperandolph Clearyer [address] [place], [place] 0626804-24-2023 12:00-0400 Diastolic blood zlvdcpet54 mm[Hg]Peperandolph Clearyer [address]04-24-2023 12:00-0400Heart rate59 /minPepe Clearyer [address] [place], [place] 5280604-24-2023 12:00-0400Mean blood xauhnbxw77 mm[Hg]Peperandolph Clearyer [address] [place], [place] 5280604-24-2023 12:00-0400 Respiratory rate16 /minPepe Clearyer [address] [place], [place] 5280604-24-2023 12:00-4802EyJ0% (BldA) [Mass fraction]96 %Pepe Clearyer [address] [place], [place] 5280604-24-2023 12:00-0400 Systolic blood hdbizffy393 mm[Hg]Peperandolph Clearyer [address] [place], [place] 5280604-24-2023 08:35-0400 Diastolic blood brdwnuhf31 mm[Hg]Pepe Kinza [address] [place], [place] 5280604-24-2023 08:35-0400Heart rate72 /minPepe Clearyer [address] [place], [place] 0626804-24-2023 08:35-0400 Systolic blood mycsyswj853 mm[Hg]Pepe Kinza [address] [place], [place] 0626804-24-2023 08:00-0400Heart rate68 /minManinder Kinza [address] [place], [place] 0626804-24-2023 08:00-0400Mean blood zezgqkml390 mm[Hg]Pepe Kinza [address] [place], [place] 0626804-24-2023 08:00-4467ErC0% (BldA) [Mass fraction]94 %Pepe Kinza [address] [place], [place] 0626804-24-2023 01:00-0400Body rbunrkycpwi96.88 [degF]Pepe Kinza [address] [place], [place] 0626804-24-2023 01:00-0400Heart rate61 /minManrandolph Kinza [address] [place], [place] 0626804-24-2023 01:00-0224FjU9% (BldA) [Mass fraction]96 %Pepe Kinza [address] [place], [place] 0626804-23-2023 16:00-0400Blood Pressure LocationIoniarandolph Kinza [address] [place], [place] 0626804-23-2023 16:00-0400Heart rate94 /minManinder Kinza [address] [place], [place] 5280604-23-2023 16:00-0400Mean blood smujymfs173 mm[Hg]Pepe Kinza [address] [place], [place] 5280604-23-2023 12:00-0400Heart haee205 /minManinder Kinza [address] [place], [place] 0626804-23-2023 07:00-0400Heart rate90 /minManrandolph Kinza [address] [place], [place] 0626804-22-2023 23:58-0400Heart rate91 /minManinder Kinza [facility]04-22-2023 21:01-0400Heart rate92 /minManinder Kinza [facility]04-22-2023 16:08-0400gluc 132 mg/dLManinder Kinza [address] [place], [place] 5280604-22-2023 12:30-0400gluc 85 mg/dLManinder Kinza [address] [place], [place] 5280604-22-2023 07:21-0400gluc 122 mg/dLManinder Kinza [address] [place], [place] 5280604-21-2023 19:20-0400Mean blood vrhlvxil205 mm[Hg]Pepe Kinza [address] [place], [place] 5280604-21-2023 16:45-0400 Respiratory rate18 /minManinder Kinza [facility]04-21-2023 07:12-0400Body .48 cmNP-C Kip Soviak Work Phone: 1(590)427-[facility]04-21-2023 07:12-0400 Body ryfiekgbqpe81 [degF]POWER WASHER-C Kip Soviak Work Phone: 2(436)902-[facility]04-21-2023 07:12-0400 Body vuuwxq226.39 kgNP-C Kip Soviak Work Phone: 1(690)006-[facility]04-21-2023 07:12-0400 Diastolic blood ekjvboky18 mm[Hg]POWER WASHER-C Kip Soviak Work Phone: 1(195)041-[facility]04-21-2023 07:12-0400 Heart rate98 /minNP-C Kip Soviak Work Phone: 1(210)511-[facility]04-21-2023 07:12-0400 Respiratory rate16 /minNP-C Kip Soviak Work Phone: 1(720)[address] [place], [place] 5045604-21-2023 07:12-0400 SaO2% (BldA) [Mass fraction]97 %POWER WASHER-C Kip Soviak Work Phone: 1(921)[address] [place], [place] 5045604-21-2023 07:12-0400 Systolic blood fkrwavcr208 mm[Hg]POWER WASHER-C Kip Soviak Work Phone: [phone])[address] [place], [place] 5045603-31-2023 14:55-0400 Body fubhrwmmypa80.2 [degF]POWER WASHER-C Kip Soviak Work Phone: 1(488)[address] [place], [place] 5045603-31-2023 14:55-0400 Diastolic blood mm[Hg]POWER WASHER-C Kip Soviak Work Phone: 1(919)[address] [place], [place] 5045603-31-2023 14:55-0400 Heart rate77 /minNP-C Kip Soviak Work Phone: 1(232)[address] [place], [place] 5045603-31-2023 14:55-0400 Respiratory rate20 /minNP-C Kip Soviak Work Phone: 1(540)[address] [place], [place] 5045603-31-2023 14:55-0400 SaO2% (BldA) [Mass fraction]96 %POWER WASHER-C Kip Soviak Work Phone: 1(690)[address] [place], [place] 5045603-31-2023 14:55-0400 Systolic blood ujbzqicy347 mm[Hg]POWER WASHER-C Kip Soviak Work Phone: 1(900)[address] [place], [place] 5045603-31-2023 06:00-0400 Body thhwpa995 kgNP-C Kip Soviak Work Phone: 1(919)[address] [place], [place] 5045603-29-2023 16:45-0400 Body onfjpc473.48 cmNP-C Kip Soviak Work Phone: 1(210)[address] [place], [place] 5045603-29-2023 02:34-0400 Diastolic blood szzmssxy15 mm[Hg]POWER WASHER-C Kip Soviak Work Phone: 1(546)699-[address] [place], [place] 3702203-29-2023 02:34-0400 Heart rate72 /minNP-C Kip Soviak Work Phone: 1(047)923-[address] [place], [place] 3702203-29-2023 02:34-0400 Respiratory rate18 /minNP-C Kip Soviak Work Phone: 1(216)900-[address] [place], [place] 3702203-29-2023 02:34-0400 SaO2% (BldA) [Mass fraction]100 %POWER WASHER-C Kip Soviak Work Phone: 1(969)[address]03-29-2023 02:34-0400 Systolic blood kuvagzwr724 mm[Hg]POWER WASHER-C Kip Soviak Work Phone: 1(178)[address]03-28-2023 21:42-0400 Body huxdys104.48 cmNP-C Kip Soviak Work Phone: 1(158)[address]03-28-2023 21:42-0400 Body hukauakhxoc14.6 [degF]POWER WASHER-C Kip Soviak Work Phone: 1(691)[address]03-28-2023 21:42-0400 Body uwouux682.1 kgNP-C Kip Soviak Work Phone: 1(969)[address]03-28-2023 20:27-0400 Diastolic blood mm[Hg]Santos Velez [facility]03-28-2023 20:27-0400Heart tzox025 /Vanesa Velez [facility]03-28-2023 20:27-0400Mean blood txocdtjw278 mm[Hg]Santos Velez [facility]03-28-2023 20:27-0400 Respiratory rate23 /minSantos Velez [facility]03-28-2023 20:27-6268PzK7% (BldA) [Mass fraction]97 %Santos Velez [address]03-28-2023 20:27-0400 Systolic blood aoufwiqd026 mm[Hg]Santos Velez [address]03-28-2023 18:00-0400 Diastolic blood lruwukhh73 mm[Hg]Santos Velez [address] [place], [place] 1943703-28-2023 18:00-0400 Respiratory rate18 /minSantos Velez [address]03-28-2023 18:00-0400 Systolic blood dipgudlx526 mm[Hg]Santos Velez [address] [place], [place] 1943703-28-2023 17:04-0400Body rlunsjxabhx21.7 [degF]Santos Velez [address] [place], [place] 1943703-28-2023 17:04-0400 Diastolic blood idpwqnvf011 mm[Hg]Santos Velez [address]03-28-2023 17:04-0400Heart eakl451 /Vanesa Velez [address] [place], [place] 7165503-28-2023 17:04-0400 Respiratory rate16 /minSantos Velez [address] [place], [place] 7165503-28-2023 17:04-7892BkT5% (BldA) [Mass fraction]98 %Santos Velez [address] [place], [place] [id number] 17:04-0400 Systolic blood ozbcohit243 mm[Hg]Santos Velez [address] [place], [place] 1943701-09-2023 20:00-0500 Diastolic blood liompmok38 mm[Hg[facility] 20:00-0500Heart rate92 /[facility]01-09-2023 20:00-0500Mean blood mm[Hg][facility]01-09-2023 20:00-0500Respiratory rate17 /[facility]01-09-2023 20:00-5009KoW3% (BldA) [Mass fraction] 100 %[facility]01-09-2023 20:00-0500Systolic blood pldmzypa256 mm[Hg][facility]01-09-2023 19:00-0500Diastolic blood qlbsoinh25 mm[Hg][facility]01-09-2023 19:00-0500Heart rate97 /[facility]01-09-2023 19:00-0500Mean blood kpzecifj743 mm[Hg][facility]01-09-2023 19:00-4545SkI9% (BldA) [Mass fraction]99 %[facility]01-09-2023 19:00-0500Systolic blood pressure 154 mm[Hg][facility]01-09-2023 18:00-0500 Diastolic blood mm[Hg][facility] 06-02-2022 18:00-0500Heart rate96 /[facility]01-09-2023 18:00-0500Mean blood kgxcosvv202 mm[Hg][facility]01-09-2023 18:00-3682JiL0% (BldA) [Mass fraction]98 %[facility]01-09-2023 18:00-0500Systolic blood pressure 178 mm[Hg][facility]01-09-2023 15:50-0500Body rgenqwfzgno57.7 [degF][facility]01-09-2023 15:50-0500Heart fzqq408 /[facility] 06-02-2022 15:50-0500Respiratory rate18 /[facility]2022 16:18-0500Body navgqgsflds47.24 [degF]Santos Velez [address] [place], [place] 7165512-22-2022 16:18-0500 Diastolic blood pjcasxan21 mm[Hg]Santos Velez [address] [place], [place] 1943712-22-2022 16:18-0500Heart rate99 /minSantos Velez [address] [place], [place] 7165512-22-2022 16:18-0500 Respiratory rate18 /katelynSantos Velez [address] [place], [place] [id number] 16:18-7623OkJ3% (BldA) [Mass fraction]97 %Santos Velez [address] [place], [place] 7165512-22-2022 16:18-0500 Systolic blood ixwvretm062 mm[Hg]Santos Velez [address] [place], [place] 7165511-16-2022 10:00-0500 Hourly RoundingPatrick SAILAJA [address] [place], [place] 7165511-16-2022 10:00-0500 Promise to ReturnPatrick SAILAJA [address] [place], [place] 7165511-16-2022 09:00-0500 Hourly RoundingPatrick SAILAJA [address] [place], [place] 7165511-16-2022 09:00-0500 Promise to ReturnPatrick SAILAJA [address] [place], [place] 7165511-16-2022 08:51-0500 Diastolic blood mqzicjgo85 mm[Hg]Ashutosh SAILAJA [address]11-16-2022 08:51-0500 Systolic blood slemhlcb19 mm[Hg]Ashutosh MENARD [address]11-16-2022 08:19-0500Heart rate63 /minPatrick SAILAJA [address] [place], [place] [id number] 08:19-0500 Respiratory rate18 /minPatrick SAILAJA [address]11-16-2022 08:14-0500Heart rate61 /minPatrick SAILAJA [address] [place], [place] [id number] 08:14-0500 Respiratory rate18 /minPatrick SAILAJA [address] [place], [place] [id number] 08:03-0500Blood Pressure LocationPatrick SAILAJA [address]11-16-2022 08:03-0500Body bvvhisvpgqr27.52 [degF]Ashutosh MENARD [address] [place], [place] 7165511-16-2022 08:03-0500 BP/Pulse Patient PositionPatrick SAILAJA [address] [place], [place] 7165511-16-2022 08:03-0500 Diastolic blood rntatztw43 mm[Hg]Ashutosh MENARD [address] [place], [place] 7165511-16-2022 08:03-0500Heart rate62 /minPatrick SAILAJA [address] [place], [place] 7165511-16-2022 08:03-0500Mean blood wyspcwco47 mm[Hg]Ashutosh MORELOSSLIN [address]11-16-2022 08:03-0500 Respiratory rate18 /minPatrick SAILAJA [address] [place], [place] 1943711-16-2022 08:03-3741IyL6% (BldA) [Mass fraction]96 %Ashutosh MENARD [address] [place], [place] 1943711-16-2022 08:03-0500 Systolic blood oxrovdgm63 mm[Hg]Ashutosh MENARD [address] [place], [place] 1943711-16-2022 08:00-0500 Hourly RoundingAshutosh MENARD [address] [place], [place] 1943711-16-2022 08:00-0500 Promise to ReturnAshutosh MENARD [address] [place], [place] [id number] 04:30-0500Blood Pressure LocationAshutosh MENARD [address] [place], [place] 1943711-16-2022 04:30-0500Body memzebngzln89.8 [degF]Ashutosh MENARD [address] [place], [place] 7165511-16-2022 04:30-0500 BP/Pulse Patient PositionAshutosh MENARD [address] [place], [place] [id number] 04:30-0500 Diastolic blood ggjhootg92 mm[Hg]Ashutosh MENARD [address] [place], [place] 7165511-16-2022 04:30-5516JnQ1% (BldA) [Mass fraction]95 %Ashutosh MENARD [address] [place], [place] 7165511-16-2022 04:30-0500 Systolic blood qcqwlcyh956 mm[Hg]Ashutosh MENARD [address] [place], [place] 1943711-15-2022 22:36-0500Blood Pressure LocationAshutosh MENARD [address] [place], [place] 1943711-15-2022 22:36-0500Body jhupxrfbrvw38.16 [degF]Ashutosh MORELOSSLIN [address] [place], [place] 1943711-15-2022 22:36-0500 BP/Pulse Patient PositionPafrancesca MORELOSSLIN [address] [place], [place] 1943711-15-2022 22:36-0500Mean blood hfnzxmeb69 mm[Hg]Ashutosh MORELOSSLIN [address] [place], [place] 1943711-15-2022 22:36-6803EcX0% (BldA) [Mass fraction]97 %Ashutosh MORELOSSLIN [address] [place], [place] 1943711-15-2022 20:27-0500Body oenzcuzmvoj29.7 [degF]Ashutosh MORELOSSLIN [address] [place], [place] 1943711-15-2022 20:27-0500Mean blood mm[Hg]Ashutosh MORELOSSLIN [address] [place], [place] 1943711-15-2022 16:55-0500Mean blood pavitvgb90 mm[Hg]Ashutosh MORELOSSLIN [address] [place], [place] 1943711-15-2022 12:18-0500gluc 133 mg/dLPafrancesca MORELOSSLIN [address] [place], [place] 1943711-15-2022 11:39-0500Body kxzchttyghk92.06 [degF]Ashutosh MORELOSSLIN [address] [place], [place] 1943711-15-2022 04:35-0500Mean blood mwiwplpc43 mm[Hg]Ashutosh MORELOSSLIN [address] [place], [place] 1943711-15-2022 04:00-0500gluc 124 mg/dLPakasimakenna MORELOSSAILAJA [address] [place], [place] 1943711-15-2022 01:00-0500Mean blood fvwurruu88 mm[Hg]Ashutosh MORELOSSLIN [address]11-14-2022 16:28-0500gluc 383 mg/dLPatrick SAILAJA [address] [place], [place] 1943711-14-2022 07:00-0500Heart rate80 /minPatrick SAILAJA [address] [place], [place] 1943711-14-2022 03:54-0500Heart rate95 /minPatrick SAILAJA [address] [place], [place] 1943711-14-2022 03:02-0500 Diastolic Blood Pressure Rpqqugog644 mm[Hg]Ashutosh SAILAJA [address]11-14-2022 03:02-0500Heart rate95 /minPatrick SAILAJA [address] [place], [place] 1943711-14-2022 03:02-0500Mean blood yshahnqf304 mm[Hg]Ashutosh SAILAJA [address]11-14-2022 03:02-0500 Respiratory rate18 /minPatrick SAILAJA [address]11-14-2022 03:02-0500 Systolic blood mm[Hg]Ashutosh SAILAJA [address]11-14-2022 02:28-0500 Diastolic Blood Pressure Dktxmkru567 mm[Hg]Ashutosh SAILAJA [address]11-14-2022 02:28-0500Mean blood kbvrcxij015 mm[Hg]Ashutosh SAILAJA [address]11-14-2022 02:28-0500 Respiratory rate12 /minPatrick SAILAJA [address]11-14-2022 02:28-0500 Systolic blood sexapfii217 mm[Hg]Ashutosh SAILAJA [facility]11-14-2022 01:05-0500 Diastolic Blood Pressure Hocgqixh25 mm[Hg]Ashutosh MENARD [address] [place], [place] 7165511-14-2022 01:05-0500Mean blood ceacvbkx023 mm[Hg]Ashutosh MENARD [address]11-14-2022 01:05-0500 Respiratory rate17 /minPafrancesca MENARD [address]11-14-2022 01:05-0500 Systolic blood kxfcnnot994 mm[Hg]Ashutosh MENARD [address]10-06-2022 17:30-0400 Diastolic blood dinfpcnb63 mm[Hg]Gui Schafer [address]10-06-2022 17:30-0400Heart qddj696 /minTim Gilmar [address] [place], [place] 7165510-06-2022 17:30-0400Mean blood vfijvnjp166 mm[Hg]Gui Schafer [address] [place], [place] 7165510-06-2022 17:30-0400 Respiratory rate13 /minTim Gilmar [address] [place], [place] 7165510-06-2022 17:30-1028HsM9% (BldA) [Mass fraction]99 %Gui Schafer [address] [place], [place] 7165510-06-2022 17:30-0400 Systolic blood mm[Hg]Gui Schafer [address] [place], [place] 7165510-06-2022 17:00-0400 Diastolic blood udistcga695 mm[Hg]Gui Schafer [address] [place], [place] 7165510-06-2022 17:00-0400Heart rate92 /minTim Gilmar [address] [place], [place] 1943710-06-2022 17:00-0400Mean blood mm[Hg]Gui Schafer [address] [place], [place] 1943710-06-2022 17:00-6601PyG7% (BldA) [Mass fraction]98 %Gui Schafer [address] [place], [place] 1943710-06-2022 17:00-0400 Systolic blood hxxjqbog732 mm[Hg]Gui Schafer [address] [place], [place] 1943710-06-2022 16:30-0400 Diastolic blood bmkdltys220 mm[Hg]Gui Schafer [address] [place], [place] 1943710-06-2022 16:30-0400Heart rate96 /minGui Schafer [address] [place], [place] 1943710-06-2022 16:30-0400Mean blood rpdmufpm100 mm[Hg]Gui Schafer [address] [place], [place] 1943710-06-2022 16:30-0400 Respiratory rate24 /minGui Schafer [address] [place], [place] 1943710-06-2022 16:30-9815XbS8% (BldA) [Mass fraction]97 %Gui Schafer [address] [place], [place] 1943710-06-2022 16:30-0400 Systolic blood sqlunaku074 mm[Hg]Gui Schafer [address] [place], [place] 1943710-06-2022 12:31-0400gluc 256 mg/dLGui Schafer [address] [place], [place] 1943710-06-2022 12:31-0400gluc Gui Schafer [address] [place], [place] 1943710-06-2022 11:57-0400Body aqzxcobldwe44.88 [degF]Gui Schafer [address] [place], [place] 1943710-06-2022 11:57-0400Heart rate99 /minGui Gilmar [address] [place], [place] 7165510-06-2022 11:57-0400 Respiratory rate18 /minTim Gilmar [address] [place], [place] 7165509-30-2022 14:53-0400Body iiimfswkroe46.24 [degF]Santos Velez [address] [place], [place] 7165509-30-2022 14:53-0400 Diastolic blood ytbcdyzk409 mm[Hg]Santos Velez [address] [place], [place] 7165509-30-2022 14:53-0400Heart bafd243 /minSantos Velez [address] [place], [place] 7165509-30-2022 14:53-0400 Respiratory rate18 /minSantos Velez [address]09-30-2022 14:53-6308FhZ9% (BldA) [Mass fraction]97 %Santos Velez [address] [place], [place] 7165509-30-2022 14:53-0400 Systolic blood knxhsdux544 mm[Hg]Santos Velez [address] [place], [place] 7165509-02-2022 14:21-0400 Diastolic blood ifmdvvbm155 mm[Hg]Preston Lugo [address] [place], [place] 7165509-02-2022 14:21-0400Heart rate89 /minPreston Lugo [address] [place], [place] 7165509-02-2022 14:21-0400Mean blood gjlglnmu570 mm[Hg]Preston Lugo [address] [place], [place] 7165509-02-2022 14:21-0400 Respiratory rate16 /minPreston Lugo [address] [place], [place] 7165509-02-2022 14:21-5679OyR4% (BldA) [Mass fraction]99 %Preston Lugo [address] [place], [place] 7165509-02-2022 14:21-0400 Systolic blood dmixdwll816 mm[Hg]Preston Lugo [address]09-02-2022 12:55-0400 Diastolic blood mm[Hg]Preston Lugo [address] [place], [place] 7165509-02-2022 12:55-0400Heart rate87 /minPreston Lugo [address]09-02-2022 12:55-0400Mean blood jxbxcnew410 mm[Hg]Preston Lugo [address]09-02-2022 12:55-0400 Respiratory rate16 /minPreston Lugo [address] [place], [place] 7165509-02-2022 12:55-0229WcV2% (BldA) [Mass fraction]99 %Preston Lugo [address] [place], [place] 7165509-02-2022 12:55-0400 Systolic blood lpriqhsh424 mm[Hg]Preston Lugo [address] [place], [place] 7165509-02-2022 12:30-0400 Hourly RoundingPreston Lugo [address] [place], [place] 7165509-02-2022 12:30-0400 Promise to ReturnPreston Lugo [address] [place], [place] 7165509-02-2022 10:46-0400Body hkurnrntkzb44.78 [degF]Preston Lugo [address] [place], [place] 7165509-02-2022 10:46-0400 Diastolic blood irihydkg77 mm[Hg]Preston Lugo [address] [place], [place] 7165509-02-2022 10:46-0400Heart rate89 /Jhonathan Lugo [address]09-02-2022 10:46-0400Mean blood otdixvqg496 mm[Hg]Preston Lugo [address] [place], [place] 7165509-02-2022 10:46-0400 Respiratory rate18 /minJofariba Lugo [address] [place], [place] 7165509-02-2022 10:46-1457DcJ9% (BldA) [Mass fraction]99 %Preston Lugo [address] [place], [place] 7165509-02-2022 10:46-0400 Systolic blood aftblkdz210 mm[Hg]Preston Lugo [address]08-18-2022 22:00-0400 [facility]18[facility]2022 22:00-0400 [facility]08-18-2022 21:47-0400 [facility]ing[facility]08-18-2022 21:47-0400 [facility]-18-2022 20:00-0400 [facility]ing[facility]08-18-2022 20:00-0400 [facility]08-18-2022 18:00-0400 Diastolic blood zakuldow27 mm[Hg][facility] 01-09-2022 18:00-0400Heart rate94 /minOhio[facility] 01-09-2022 18:00-0400Mean blood mm[Hg][facility]08-18-2022 18:00-0626RtS8% (BldA) [Mass fraction]98 %[facility]08-18-2022 18:00-0400Systolic blood usanvirb402 mm[Hg][facility]08-18-2022 15:38-0400Body jyjxmjfajqf20.78 [degF][facility]08-18-2022 15:38-0400Diastolic blood alsvrekd056 mm[Hg][facility]08-18-2022 15:38-0400Heart rate92 /minOhio[facility]08-18-2022 15:38-1523FyR7% (BldA) [Mass fraction]99 %[facility]08-18-2022 15:38-0400Systolic blood tuczxqok430 mm[Hg][facility]08-18-2022 15:32-2733JwN8% (BldA) [Mass fraction]99 %[facility]08-18-2022 15:28-0400Blood Pressure LocationOhioHealth O'[facility]len[facility]08-18-2022 15:28-0400 BP/Pulse Patient PositionOhioHealth O'Bleness Hospital08-18-2022 15:28-0400Diastolic blood fnyvpklt235 mm[Hg][facility]08-18-2022 15:28-0400Heart rate92 /minOhio[facility]08-18-2022 15:28-0400Mean blood ltijynmf913 mm[Hg][facility]08-18-2022 15:28-0400Systolic blood wedtkhab019 mm[Hg][facility]08-18-2022 14:56-0400Heart rate93 /minOhio[facility]08-18-2022 14:56-0400Mean blood kmqnodws304 mm[Hg][facility]08-18-2022 14:56-0400Respiratory rate16 /minOhio[facility]08-18-2022 14:15-0400 Respiratory rate18 /minOhio[facility]08-18-2022 14:00-0400Mean blood hnizzbfk187 mm[Hg][facility] 01-09-2022 13:20-0400Heart rate97 /minNishit [facility] 01-09-2022 12:45-0400Heart naxr601 /minOhio[facility] 01-09-2022 12:15-0400Body gsmuymvvthp59.88 [degF]Juan [facility]08-18-2022 12:15-0400Respiratory rate20 /minOhio[facility]07-21-2022 16:48-0400Blood Pressure LocationBreanna Gu [phone]-VynazUniversity [facility]als [facility] 07-21-2022 16:48-0400Body mpnpxinjvqu89.06 [degF] Breanna Gu [phone]-SkgliUniversity Hospitals Health [facility] 07-21-2022 16:48-0400Diastolic blood qzwnhwka81 mm[Hg] Breanna Gu [phone]-VikmdUniversity Hospitals Health System [facility] 07-21-2022 16:48-0400Heart oqih917 /minBreanna Gu [phone]-YtixiUniversity Hospitals Health System [facility] 07-21-2022 16:48-8506MrJ3% (BldA) [Mass fraction]97 % Breanna Gu [phone]-YwjvkUniversity Hospitals Health System [facility] 07-21-2022 16:48-0400Systolic blood rftmnmaj994 mm[Hg] Breanna Gu [phone]-GbngsUniversity Hospitals Health System [facility] 07-17-2022 15:56-0400Diastolic blood grsjsexj88 mm[Hg] Antoine Sosa MD Work Phone: [facility]07-17-2022 15:56-0400Heart byzc245 /minAntoine Sosa MD Work Phone: [facility]07-17-2022 15:56-0400 Respiratory rate16 /minAntoine Sosa MD Work Phone: [facility]07-17-2022 15:56-5115EsJ9% (BldA) [Mass fraction]98 %Antoine Sosa MD Work Phone: [facility]07-17-2022 15:56-0400Systolic blood yaodoshm267 mm[Hg]Antoine Sosa MD Work Phone: [facility]07-17-2022 15:19-0400Body .5 cmAntoine Sosa MD Work Phone: [facility]07-17-2022 15:19-0400Body mass index (BMI) [Ratio]45.73 kg/p7SgigugAntoine Sosa MD Work Phone: [facility]07-17-2022 15:19-0400Body pyybdcsyacu09.6 [degF]Antoine Sosa MD Work Phone: [facility]07-17-2022 15:19-0400Body bxppap117.4 kgAntoine Sosa MD Work Phone: [facility]07-17-2022 12:44-0400Diastolic blood mm[Hg]Santos Moreno [facility]07-17-2022 12:44-0400Heart rate99 /minSantos Moreno [facility]07-17-2022 12:44-0400Mean blood nfmpepeg137 mm[Hg]Santos Moreno [facility]07-17-2022 12:44-0400 Respiratory rate17 /minKevin Josh [address]07-17-2022 12:44-1652AnQ1% (BldA) [Mass fraction]98 %Santos Josh [address] [place], [place] 7165507-17-2022 12:44-0400 Systolic blood cshxtaya450 mm[Hg]Santos Josh [address] [place], [place] 7165507-17-2022 12:20-0400 Diastolic blood ypmqxfmd31 mm[Hg]Santos Josh [address]07-17-2022 12:20-0400Heart rate88 /minKevin Josh [address]07-17-2022 12:20-0400Mean blood hviappbt78 mm[Hg]Santos Josh [address]07-17-2022 12:20-0400 Respiratory rate17 /minKevin Josh [address] [place], [place] 7165507-17-2022 12:20-0400 Respiratory rate18 /minKevin Josh [address] [place], [place] 7165507-17-2022 12:20-5968GpH3% (BldA) [Mass fraction]99 %Santos Josh [address] [place], [place] 7165507-17-2022 12:20-0400 Systolic blood gnemtcqw362 mm[Hg]Santos Josh [address] [place], [place] 7165507-17-2022 11:41-0400 Diastolic blood uvhmzkfi04 mm[Hg]Santos Josh [address] [place], [place] 7165507-17-2022 11:41-0400Heart rate89 /minKevin Josh [address]07-17-2022 11:41-0400Mean blood mm[Hg]Santos Josh [address] [place], [place] 7165507-17-2022 11:41-0400 Respiratory rate18 /minSantos Moreno [address] [place], [place] 7165507-17-2022 11:41-0042HrL8% (BldA) [Mass fraction]99 %Santos Moreno [address] [place], [place] 7165507-17-2022 11:41-0400 Systolic blood coqemita382 mm[Hg]Santos Moreno [address] [place], [place] 7165507-17-2022 10:01-0400Body opntjttirob98.7 [degF]Santos Moreno [address] [place], [place] 7165507-17-2022 10:01-0400Heart cmiy426 /minSantos Moreno [address] [place], [place] 7165507-17-2022 10:01-0400 Respiratory rate18 /minSantos Moreno [address] [place], [place] 7165506-15-2022 13:03-0400 [facility]06-15-2022 13:03-0400 [facility] 12:05-0400Hourly RoundingAhmad [facility] [place]06-15-2022 12:05-0400[facility]06-15-2022 11:05-0400[facility]06-15-2022 11:05-0400[facility]06-15-2022 11:00-0400Diastolic blood igcmlkeq86 mm[Hg][facility]06-15-2022 11:00-0400Heart rate72 /minAhmad [facility]06-15-2022 11:00-4322NfX6% (BldA) [Mass fraction]98 %[facility]06-15-2022 11:00-0400Systolic blood fgbkscix981 mm[Hg][facility]06-15-2022 08:04-0400Body vdkrurepodk24.06 [degF][facility]06-15-2022 08:04-0400Diastolic blood jjsrycjh53 mm[Hg][facility]06-15-2022 08:04-0400Heart rate94 /[facility]15-2022 08:04-0400Mean blood htzwuwrd224 mm[Hg] [facility]06-15-2022 08:04-5069DzY6% (BldA) [Mass fraction]99 %[facility]06-15-2022 08:04-0400Systolic blood rwtbblxe347 mm[Hg][facility]06-15-2022 08:00-0400Blood Pressure LocationCore[facility] Hospital06-15-2022 08:00-0400BP/Pulse Patient PositionCorey Hospital06-14-2022 23:33-3374PHS400 %[facility]06-14-2022 23:33-0400Heart rate60 /[facility]06-14-2022 23:33-0400Respiratory rate12 /[facility]06-14-2022 23:33-5590OzK3% (BldA) [Mass fraction]97 %[facility]06-14-2022 23:00-0400Body jcbqgueujub86.88 [degF][facility]06-14-2022 23:00-0400Diastolic blood msituyrl11 mm[Hg][facility]06-14-2022 23:00-0400Systolic blood whhmintl55 mm[Hg][facility]06-14-2022 20:41-0400Mean blood hecofsco700 mm[Hg][facility]06-14-2022 20:23-0400Respiratory rate18 /minCore[facility] Hospital06-14-2022 15:53-0400Blood Pressure LocationCore[facility]06-14-2022 15:53-0400BP/Pulse Patient PositionCore[facility] 11-05-2021 15:53-0400Mean blood whyuzhyu134 mm[Hg][facility]06-14-2022 14:57-0400Heart qkww082 /[facility]06-14-2022 11:08-0400[facility]-14-2022 11:08-0400BP/Pulse Patient PositionCore[facility]06-14-2022 00:25-0400Heart rate65 /min [facility]06-14-2022 00:25-0400Mean blood uwvycken18 mm[Hg][facility]06-13-2022 19:15-0400Mean blood jztkifal832 mm[Hg][facility]06-13-2022 18:49-0400Heart giyn684 /[facility]06-13-2022 17:44-0400Mean blood xxienyjz94 mm[Hg][facility]05-18-2022 17:57-0400Diastolic blood scjtwgvi51 mm[Hg]Santos Velez [address]05-18-2022 17:57-0400Heart tfxe209 /minSantos Velez [address]05-18-2022 17:57-0400Mean blood jsbilxbj593 mm[Hg]Santos Velez [address]05-18-2022 17:57-0400 Respiratory rate16 /minSantos Velez [address] [place], [place] 1943705-18-2022 17:57-6082BjJ7% (BldA) [Mass fraction]97 %aSntos Velez [address] [place], [place] 1943705-18-2022 17:57-0400 Systolic blood xhfvselh810 mm[Hg]Santos Velez [address] [place], [place] 1943705-18-2022 17:40-0400 Hourly RoundingSantos Velez [address]05-18-2022 17:40-0400 Promise to ReturnSantos Velez [address] [place], [place] 7165505-18-2022 17:38-0400 Diastolic blood mm[Hg]Santos Velez [address] [place], [place] 7165505-18-2022 17:38-0400Heart nycd215 /minSantos Velez [address] [place], [place] 7165505-18-2022 17:38-0400Mean blood uaycpgcb650 mm[Hg]Santos Velez [address] [place], [place] 7165505-18-2022 17:38-0400 Respiratory rate16 /minSantos Velez [address] [place], [place] 7165505-18-2022 17:38-3828NiT1% (BldA) [Mass fraction]96 %Santos Velez [address] [place], [place] 7165505-18-2022 17:38-0400 Systolic blood eybxehjf673 mm[Hg]Santos Agustin [address] [place], [place] 7165505-18-2022 16:10-0400 Diastolic blood ulohlois93 mm[Hg]Santos Agustin [address]05-18-2022 16:10-0400Heart kran732 /minSantos Velez [address]05-18-2022 16:10-0400 Hourly RoundingSantos Velez [address] [place], [place] 7165505-18-2022 16:10-0400Mean blood udlvoqsc05 mm[Hg]Santos Agustin [address]05-18-2022 16:10-0400 Promise to ReturnSantos Velez [address] [place], [place] 7165505-18-2022 16:10-0400 Respiratory rate16 /minSantos Velez [address] [place], [place] 7165505-18-2022 16:10-7691ZwB4% (BldA) [Mass fraction]96 %Santos Agustin [address] [place], [place] 7165505-18-2022 16:10-0400 Systolic blood iqgldzif747 mm[Hg]Santos Velez [address] [place], [place] 7165505-18-2022 15:29-0400Body ronzqhfygif49.6 [degF]Santos Velez [address] [place], [place] 7165505-18-2022 15:29-0400Heart aiza688 /minSantos Velez [address] [place], [place] 7165505-09-2022 13:53-0400Blood Pressure Catrachita Gu [phone]-Utvdi[address] [place] [address] Primary Care 05-09-2022 13:53-0400Body gdrdmazqyxm34.7 [degF]Breanna Gu [phone]-SdpkeUniversity [facility] 05-09-2022 13:53-0400Diastolic blood mm[Hg] Breanna Gu [phone]-FclwvUniversity [facility]als [facility] 05-09-2022 13:53-0400Heart rate72 /minBreanna Gu [phone]-KbucuUniversity Hospitals Health [facility] 05-09-2022 13:53-2680UsI7% (BldA) [Mass fraction]98 % Breanna Gu [phone]-HcxdoUniversity Hospitals Health System [facility] 05-09-2022 13:53-0400Systolic blood fqcotlpv933 mm[Hg] Breanna Gu [phone]-XngfnUniversity Hospitals [facility] 04-11-2022 14:55-0400Blood Pressure LocationRyshelia Milena [facility]04-11-2022 14:55-0400 Diastolic blood bmivsaos65 mm[Hg]Kirk Motterson [facility]04-11-2022 14:55-0400Heart rate67 /minRyan Christofferson [facility]04-11-2022 14:55-0400 Respiratory rate18 /minRyan Christofferson [facility]04-11-2022 14:55-6058OhL5% (BldA) [Mass fraction]100 %Kirk Motterson [facility]04-11-2022 14:55-0400 Systolic blood xtmfeboc606 mm[Hg]Kirk Abbott [facility]01-21-2022 19:00-0500Body .48 cmPgypsy June Other [facility] Other 01-21-2022 19:00-0500Body mass index (BMI) [Ratio] 42.06 kg/n1WtkfnlHerlinda June Other [facility] Other 01-21-2022 19:00-0500Body mlaphsvwpeb99.1 [degF]Herlinda Callahanmond Other [employer] Other 01-21-2022 19:00-0500Body dfhvae951.33 kgHerlinda June Other [employer] Other 01-21-2022 19:00-3106HyU0% (BldA) [Mass fraction]97 % Herlinda Callahanmond Other [employer] Other 01-12-2021 15:11-0500Body Gzizuewival53.9 [degF][facility]zSumtDujxxo03-71-1208 15:11-0500BP Rtcorhwcr31 mm[Hg][facility] 06-05-2020 15:11-0500BP Iklxzade625 mm[Hg][facility] HospitalTopxRnhfLbyymb16-13-6808 15:11-0500Pulse (Heart Rate)79 /[facility] HospitalMgfnAwaaNaomkp78-10-8120 15:11-0500 Pulse Ezojvejw89 %[facility] HospitalNvrjOsqlZnijgk93-88-1317 15:11-0500Respiratory Rate15 /[facility] HospitalXiyfVrevOovqno69-71-2859 14:24-0500BMI (Body Mass Index)48.29 kg/m2 [facility] HospitalZhspUdavWtrqmf26-29-0695 14:24-0500Body ymeyhp595.75 kgDavilauren [facility] HospitalFlchVmvjmn15-76-9402 14:24-6680Blptfk893.5 cmResnick [facility]psych[facility] Hospital At Uclalauren AstmCjadZfrmag32-23-1496 13:59-0400Body Ccudpkqmolm04.3 [degF]Shameka [facility]2019 13:59-0400BP Uktldjybi75 mm[Hg][facility]2019 13:59-0400BP Lfnahqwb078 mm[Hg][facility]2019 13:59-0400Pulse (Heart Rate)98 /[facility] 13:59-0400Pulse Vqpggvfm977 %Shameka [facility]2019 13:59-0400Respiratory Rate16 /min [facility]2019 08:00-0400Body weight 110.8MattPrem[facility]04-16-2019 14:20-0400Height 157.48 cmSumma Health Wad[facility]04-15-2019 19:43-0400BMI (Body Mass Index)42.1 kg/e0DjoyrqsSumma Health [facility] 06-26-2017 21:27-0500BP Tcjekloia122 mm[Hg]Michi [facility]St[facility] Work Phone: 1(978) 728-480102-02-2018 21:27-0500BP Ridxooqh774 mm[Hg]Michi HernandezSt. [facility] Work Phone: 1(652) 843-148602-02-2018 21:27-0500Pulse (Heart Rate)91 /minMichi HernandezSt. John of God Hospital Work Phone: 1(501) 402-998302-02-2018 21:27-0500Pulse Egugxibk757 %Michi [facility] Work Phone: 1(679) 281-893702-02-2018 21:27-0500Respiratory Rate17 /minMichi HernandezSt. John of [facility] Hospital Work Phone: 1(878) 677-993102-02-2018 18:34-0500BMI (Body Mass Index)36.58 kg/m2 [facility] Work Phone: 1(885) 200-397702-02-2018 18:34-0500Body Gqwsihngsmj47.4 [degF] [facility] Work Phone: 1(771) 859-590602-02-2018 18:34-9142Tiraaz331.5 cmMichi khang [facility] Work Phone: 1(236) 211-107602-02-2018 18:34-7330Buqrbg33.72 kgMichi [facility] Work Phone: Encounters Encounter DateEncounter TypeCare ProviderFacilityStart: 04-04-2025 End: 52-50-9754luuarfppflDflrctor J Rice DO Work Phone: -[facility]: 04[facility]2025 End: 78-53-9123Daptfwo encounter procedureMitcorin Lopez DO-[facility] Work Phone: Start: 03-21-2025 End: 80-83-2722LyfaomKaahejnemesio Elizalde CNP Work Phone: [facility] Velia Comment on above:DDD (degenerative disc disease), lumbar; Lumbar radiculopathy; Lumbar stenosis with neurogenic claudicationStart: 69-37-7432Gmq-patient / Non-visitAmiee Astria [facility] Work Phone: Start: 03-14-2025 End: 29-30-8613Jykqpuiww encounterSergio Resendez MD Work Phone: NORI Di EndocrinologyComment on above:Prior AuthorizationStart: 03-08-2025 End: 57-97-7574bfmbrdbmdeFQHGGAAEO LOUIS BONASSOOhio Health AmbulatoryStart: 03-08-2025 End: 73-22-0045Qmaihv outpatient new 20 minutesJustin Shaun Elizalde CNP Work Phone: [facility] PhysiciansComment on above: Back pain with radiculopathy (Primary Dx); Degeneration of intervertebral disc of lumbar region with discogenic back pain and lower extremity pain; Chronic pain of right kneeStart: 02-24-2025 End: 00-94-8143Qoecrhfvfwefj procedureJay Peralta [facility] MariComment on above:Power scooter DMEStart: 02-23-2025 End: 75-03-7125Kkwdhu outpatient visit 25 minutesJustin Shaun Lavonne BEATRIZ Work Phone: [facility] [place] Comment on above:Lumbar stenosis with neurogenic claudication (Primary Dx); Left hand pain; Fall, initial encounter; Lumbar radiculopathy; Chronic pain syndrome; Myofascial pain syndrome; Degeneration of intervertebral disc of lumbar region with discogenic back pain and lower extremity painStart: 02-23-2025 End: 25-97-2221douitreyzbGXHNYKUK NOT IN [facility] PhysiciansStart: 53-00-5477rqnncoczkqRqgpgp TannaFacility:EU BellevueStart: 02-20-2025 End: 82-36-1921bcmdbizlqyUmpjrpbt J Rice DO Work Phone: [facility] Work Phone: Start: 02-20-2025 End: 60-06-8275Ktkanaw encounter procedureAndrés Lopez DO-[facility] Work Phone: Start: 02-03-2025 End: 50-17-7583pznjqqobijDFDO CAMILA DIALSFacility:FTMCStart: 02-02-2025 End: 57-31-8206Icgragrohan Resendez MD Work Phone: [facility] EndocrinologyStart: 02-02-2025 End: 45-58-8861Jfadadrohan Resendez MD Work Phone: [facility] EndocrinologyStart: 02-02-2025 End: 81-18-0853Dfenik outpatient new 45 minutesSergio Resendez MD Work Phone: NORI Di EndocrinologyComment on above:Type 2 diabetes mellitus with hyperglycemia, with long-term current use of insulin (HCC) (Primary Dx); Encounter for dietary consultation; Insulin long-term use (HCC); Class 3 severe obesity due to excess calories with serious comorbidity and body mass index (BMI) of45.0 to 49.9 in adult ([facility]-HCC); Hyperlipemia, mixed ; Vitamin D deficiency; Primary hypertension ; Encounter for fitting or adjustment of insulin pumpStart: 02-02-2025 End: 33-85-7770letqjfgmzlXAJPR F SABBAGHNot AvailableStart: 01-09-2025 End: 46-41-7175bhzavhpkjsUZJU ALAHMADFacility:FTMCStart: 12-28-2024 End: 13-34-0965eteqrygwgaXtejfqv D [facility] Work Phone: Start: 12-28-2024 End: 62-14-0398Humgbsmn ReferredBen Long DO-[facility] Start: 12-19-2024 End: 11-31-2177OnokqtBcxjdsjxhWillie Velez DO Work Phone: [facility] Velia Comment on above:Chronic pain syndrome; DDD (degenerative disc disease), lumbar; Lumbar radiculopathyStart: 12-06-2024 End: 83-10-8796Ecknbshpd encounterCathy [facility] Medication ManagementStart: 12-02-2024 End: 86-22-4133Hxxqxckukg and management of inpatientJudy Mio Vargas MD Work Phone: [facility] - GEN 8 AcuteComment on above:HHS (hypothenar hammer syndrome) (Primary Dx); Hyperosmolar hyperglycemic state (HHS) ([facility]-HCC)Start: 44-09-2076rzxhukbvmiEBG D [facility] Ambulatory PPGStart: 11-21-2024 End: 40-23-0799VciygmJhbywoylsWillie Velez DO Work Phone: [facility] [place] Comment on above:DDD (degenerative disc disease), lumbar; Lumbar radiculopathy; Chronic pain syndromeStart: 11-04-2024 End: 22-11-4643Xmbykeu encounter Andra Romeo PA-C Work Phone: [facility] Clarisse Comment on above:No-show for appointment (Primary Dx)Start: 44-63-5589zrswqhyavekarlo ROMEOFacility:[facility]ITALtart: 10-11-2024 End: 91-33-3560Sjeuyp OnlyJim Velez DO Work Phone: [facility] [place] Start: 10-06-2024 End: 17-17-5908AevxkbKxirmyvfwWillie Velez DO Work Phone: [facility] [place] Comment on above:Chronic pain syndromeStart: 78-16-3059Qvvgyxdufk and management of inpatientMUNIER NAZZALUniSelect Medical Specialty Hospital [facility] Southtart: 10-02-2024 Evaluation and management of inpatientMUHAMMAD ASHLEYPike Community Hospitaltart: 86-62-2956Zjvhqqrssj and management of inpatientSWELLESLEYR [facility] Centertart: 90-32-3593Aursjtyssr and management of inpatientSAMAR [facility] Centertart: 10-01-2024 End: 11-78-2870Uzceunqwnu and management of inpatientDARYL T [facility]tart: 09-29-2024 End: 02-48-9231Iqvfrjawppgaa procedureJay SANTANACleveland Clinic [facility] Pain Management VeliaComment on above:ZynexStart: 88-69-3764nbrpsgdilkMBTUIDUKFMichael VELEZCleveland Clinic [facility]ucl[facility] PhysiciansStart: 09-23-2024 End: 31-75-3595PpgdgaJrcqerpniWillie Velez DO Work Phone: [facility] [place]ia Comment on above:Chronic pain syndromeDegeneration of intervertebral disc of lumbar region with discogenic back pain and lower extremity pain (Primary Dx); Lumbar radiculopathy; Chronic pain syndromeLevetiracetam LevelStart: 09-23-2024 End: 05-59-9951Utiaqv outpatient visit 25 minutesJim Velez DO Work Phone: [facility] [place] Comment on above:Myofascial pain syndrome (Primary Dx); DDD (degenerative disc disease), lumbar; Lumbar radiculopathy; Chronic pain syndromeStart: 09-23-2024 End: 10-57-6350pezlwhxkxsJYPHU [facility][1]tart: 09-22-2024 End: 95-58-0083Sfxczlfpy department patient visitMATTOtis R. Bowen Center for Human Servicestart: 09-22-2024 End: 83-33-6053Nrxwwegnsxoef procedureMenatalie Beard PA-C Work Phone: [facility] Primary Care PhysiciansComment on above:Chronic pain syndromeStart: 99-21-0708nzcsbpnnljWWDWJKSMX WONG [facility] PhysiciansStart: 09-18-2024 End: 52-34-2989Wpbhcsiba department patient visitMATTOtis R. Bowen Center for Human Servicestart: 08-29-2024 End: 60-27-7353Qlnhvvuio department patient visitNo [facility] Ur[facility] CareStart: 08-24-2024 End: 12-89-2724Upxanvzroikxe procedureJustteresita Elizalde CNP Work Phone: [facility] [place] Start: 08-18-2024 End: 76-45-6110Krobrb OnlyJ. Timothy Robles MD Work Phone: [facility] OrthopedicsComment on above: Pain in both knees, unspecified chronicity (Primary Dx)DDD (degenerative disc disease), lumbar; Lumbar radiculopathy; Chronic pain syndromeStart: 08-08-2024 End: 85-97-5596TdqmnqNanda Schuler PA-C Work Phone: [facility] Spine SurgeryComment on above: Lumbar pain (Primary Dx)Start: 08-04-2024 End: 75-01-8088Lkijyovianhmn [facility] Primary Care PhysiciansComment on above:Pulse oxStart: 08-02-2024 End: 48-43-8898wglvgsjcocYFWXF ANN MCCMANUELASelect Specialty Hospital - Beech Grovetart: 08-02-2024 End: 10-33-1079Odswgk outpatient visit 25 minutesStephany Pelayo PA-C Work Phone: [facility] Primary Care PhysiciansComment on above:Bipolar 1 disorder (HCC) (Primary Dx); Chronic pain of both knees; [...] Hypothyroidism, unspecified type; History of stroke; Seizures ([facility]); Hypercholesterolemia; Urinary incontinence, unspecified type; Gastroesophageal reflux disease, unspecified whether esophagitis present; Family history of pulmonary fibrosis; Candidiasis of breast; Insomnia, unspecified type; Vitamin B12 deficiency; Vitamin D deficiency; Encounter for screening mammogram for malignant neoplasm of breast; Encounter for health-related screeningStart: 08-02-2024 End: 49-41-3430qtlmeprphqJDHNGChildren's Hospital [facility] Physicians Start: 07-21-2024 End: 87-24-6418Xtsulgzzcdlqk [facility] Primary Care PhysiciansComment on above:shower chairStart: 07-15-2024 End: 65-71-7411Vntbzt outpatient visit 25 minutesStephany Pelayo PA-C Work Phone: [facility] Primary Care PhysiciansComment on above:Seizures (HCC) (Primary Dx); Chronic nonintractable headache, unspecified headache type; Primary hypertension; Sick sinus syndrome (HCC); Type 2 diabetes mellitus with diabetic polyneuropathy, with long-term current use of insulin ([facility]); Gastroesophageal reflux disease, unspecified whether esophagitis presentStart: 07-15-2024 End: 13-67-4095nstzplbvbiDUVAZ ANN MCCMANUELACleveland Clinic [facility] Physicians Start: 07-12-2024 End: 69-66-9032OyhnjxMhsnveDiego Elizalde NAVAL ENGINEER Work Phone: [facility] [place] Comment on above:DDD (degenerative disc disease), lumbar; Lumbar radiculopathy; Chronic pain syndromeStart: 07-05-2024 End: 70-21-3914Wggnar flowsheetMarc D Dolce DPM FACFAS Work Phone: [facility] PODStart: 07-05-2024 End: 00-06-8445Xlimfy flowsheetMarc D Dolce DPM FACFAS Work Phone: [facility] PODStart: 07-05-2024 End: 45-65-6564Cjjjns outpatient visit 15 minutesMarc D Dolce DPM FACFAS Work Phone: noMS NMA PODComment on above:Type II diabetes mellitus with neurological manifestations (CMS/HCC) (Primary Dx); Chronic foot ulcer with fat layer exposed, left (CMS/HCC); Cellulitis of left footStart: 07-05-2024 End: 05-76-3033gstoycdzlkDQTL D DOLCENot AvailableStart: 06-10-2024 End: 97-75-6648KhmjboVagzfcDiego Elizalde NAV[employer] ENGINEER Work Phone: [facility] [place] Comment on above:Chronic pain syndrome; DDD (degenerative disc disease), lumbar; Lumbar radiculopathyStart: 06-06-2024 End: 43-71-5063Oiyhicefyonee procedureJessica Jonathan [facility] Physicians Primary Care PhysiciansComment on above:incontinence suppliesStart: 05-31-2024 End: 05-50-3305Vknwjmrbvmwxo procedureMegan [place] DOMNorwalk Memorial Hospital Physicians Primary Care PhysiciansStart: 05-27-2024 End: 16-11-3781BtfucjKrvpiLeny Pelayo PA-C Work Phone: [facility] Primary Care PhysiciansComment on above:Bipolar 1 disorder (HCC); Insomnia, unspecified typeStart: 05-23-2024 End: 80-06-9283Uiciidlew department patient visitMATTOtis R. Bowen Center for Human Servicestart: 05-13-2024 End: 38-91-5178Hoqeuj outpatient visit 25 minutesJustteresita Elizalde CNP Work Phone: [facility] [place] Comment on above:Lumbar radiculopathy (Primary Dx); Chronic pain syndrome; DDD (degenerative disc disease), lumbar; Encounter for monitoring opioid maintenance therapy; Other chronic pain; Myofascial pain syndromeStart: 05-13-2024 End: 72-94-0933otrihwjutpIMBZLAllegra PELAYOCleveland Clinic Euclid Hospital Physicians Start: 04-28-2024 End: 14-49-2072RffqnyBwblbkDiego Elizalde CNP Work Phone: [facility] [place] Comment on above:Chronic pain syndromeStart: 04-26-2024 End: 14-58-4316evjvpyplgjRIQ [facility] Hospitaltart: 04-26-2024 End: 93-06-6590Abamstasfk and management of inpatientAnudeep Miah STEVENS Work Phone: [facility] 4 SouthStart: 04-12-2024 End: 57-24-3786CbkxeaAtqzjtbvzEduardo Velez DO Work Phone: [facility] [place] Comment on above:DDD (degenerative disc disease), lumbar; Lumbar radiculopathyChronic pain syndromeStart: 03-30-2024 End: 95-59-3170Ybdvmnczkxtvb procedureSlinda Adams LPNorwalk Memorial Hospital Physicians EndocrinologyComment on above:[facility] HospitalStart: 03-25-2024 End: 96-01-2365XvtazkNanda Pelayo PA-C Work Phone: [facility] Primary Care PhysiciansStart: 03-24-2024 End: 96-45-4189Wcxppfivnm and management of inpatientDatamika Aaron MD Work Phone: [facility] Surgical 2 [place] ParkStart: 03-24-2024 End: 89-29-0027BpszduNanda RUBALCAVA-Isabell Work Phone: [facility] Primary Care PhysiciansStart: 03-22-2024 End: 85-72-9026Opjdcf outpatient visit 25 minutesStephany Pelayo PA-C Work Phone: [facility] Primary Care PhysiciansComment on above:Primary hypertension (Primary Dx); Diarrhea, unspecified type; Abdominal cramping; Abdominal wound dehiscence, initial encounter; Bipolar 1 disorder (HCC); Seizures (HCC); Chronic pain of both knees; Urinary incontinence, unspecified type; Candidiasis; Abnormal pigmentation of skinStart: 03-22-2024 End: 96-78-5171YviwhiLomknrptgEduardo Velez DO Work Phone: [facility] [place] Comment on above:Chronic pain syndromeStart: 03-08-2024 End: 05-66-5924DodzufCgjzbwDiego Elizalde CNP Work Phone: [facility] [place] Comment on above:DDD (degenerative disc disease), lumbar; Lumbar radiculopathyStart: 02-11-2024 End: 61-14-6586adbafynxskMDIKZEast Adams Rural Healthcaretart: 02-11-2024 End: 06-37-1824Jvaxpq outpatient visit 25 minutesStephany Pelayo PA-C Work Phone: [facility] Primary Care PhysiciansComment on above:Diabetic ulcer of left great toe (HCC) (Primary Dx); Hypertensive urgency; [...] Cigarette nicotine dependence without complication; Need for vaccinationStart: 02-08-2024 End: 43-97-3824TujugtUxizqcmipqConemaugh Nason Medical Center Physicians PsychComment on above:Bipolar 1 disorder (HCC); Insomnia, unspecified typeStart: 02-04-2024 End: 37-97-2513Teoncy BladimirJim Pearsonay Agustin DO Work Phone: [facility] [place] Comment on above:DDD (degenerative disc disease), lumbar; Lumbar radiculopathyStart: 02-03-2024 End: 13-63-4343YvjmczJvnguzxuk Wong Lewis DO Work Phone: [facility] [place] Comment on above:DDD (degenerative disc disease), lumbar; Lumbar radiculopathyStart: 02-02-2024 End: 24-00-7709Eypwyt outpatient visit 25 minutesJim Pearsonjesus Velez DO Work Phone: [facility] [place] Comment on above:Chronic pain syndrome (Primary Dx); DDD (degenerative disc disease), lumbar; Lumbar radiculopathy; Other chronic pain; Myofascial pain syndrome; Debilitated patientStart: 01-27-2024 End: 67-54-2081litdalxjbmFlhmhpvjECU Health Physicians Primary Care Comment on above:Chronic pain syndromeStart: 01-27-2024 End: 43-47-9070Nfnzbcgnxqfg care manage srvc 14 day dischargeRafaela Medrano NAV[employer] ENGINE[employer] Work Phone: [facility] Primary Care PhysiciansComment on above:Diabetic ulcer of right foot associated with type 2 diabetes mellitus, unspecified part of foot, unspecified ulcer stage (HCC) (Primary Dx); Primary hypertension; SOLO (acute kidney injury) ([facility]); Hypothyroidism, unspecified type; Hyperlipidemia, unspecified hyperlipidemia typeStart: 01-12-2024 End: 06-21-0122Ldqdlaukti and management of inpatientAnudekarthik Dooley MD Work Phone: [facility] 2 SouthStart: 01-12-2024 End: 23-50-4069Xapaqs outpatient visit 25 minutesStephany Pelayo PA-C Work Phone: [facility] Primary Care PhysiciansComment on above:Diabetic ulcer of left great toe (HCC) (Primary Dx)Start: 01-11-2024 End: 12-11-4527NgfcudKybtcuhkv Holloway Lewis Work Phone: [facility] [place] Comment on above:DDD (degenerative disc disease), lumbar; Lumbar radiculopathy; Muscle spasms of both lower extremitiesStart: 01-09-2024 End: 29-78-8921Upzlbtapn department patient visitLASt. Vincent Carmel Hospitaltart: 12-21-2023 End: 23-99-4155VohiwbOhuuwzDiego Elizalde CNP Work Phone: [facility] [place] Comment on above:Chronic pain syndromeStart: 12-14-2023 End: 66-78-0871Kfhznluvrqafn procedureRafaela Castillo [facility] Physicians Primary CareComment on above:nebulizer suppliesStart: 12-08-2023 End: 77-62-8476Ccdfuq outpatient new 45 minutesStephany Pelayo PA-C Work Phone: [employer] [facility] [place] Comment on above:Chronic pain syndrome (Primary Dx); Muscle spasms of both lower extremities; DDD (degenerative disc disease), lumbar; Lumbar radiculopathy; Other chronic pain; Myofascial pain syndrome; Debilitated patientStart: 12-08-2023 End: 61-12-0846SduppaGtyir L Huan [facility] Endocrinology Start: 12-07-2023 End: 42-87-5673Pnbmsnokt department patient visitLASt. Vincent Carmel Hospitaltart: 12-07-2023 End: 82-89-7113KsqquzZpbqk L Huan [facility] Endocrinology Comment on above:Type 2 diabetes mellitus with diabetic polyneuropathy, with long-term current use of insulin (HCC)Start: 12-03-2023 End: 00-31-6426BcolgwNryrlzvTerry Sanchez MD Work Phone: [facility] EndocrinologyComment on above: Type 2 diabetes mellitus with diabetic polyneuropathy, with long-term current use of insulin (HCC)Start: 12-02-2023 End: 82-98-1250AonxbxYegwvgv Ann Ishler [facility] Physicians Endocrinology Comment on above:Type 2 diabetes mellitus with diabetic polyneuropathy, with long-term current use of insulin (HCC) (Primary Dx)Start: 12-02-2023 End: 44-36-8731Mhvhzk outpatient new 60 minutesStephany Pelayo PA-C Work Phone: [facility] EndocrinologyComment on above: Type 2 diabetes mellitus with diabetic polyneuropathy, with long-term current use of insulin (HCC) (Primary Dx); Proliferative diabetic retinopathy associated with type 2 diabetes mellitus, unspecified laterality, unspecified proliferative retinopathy type (HCC); Dyslipidemia; Essential hypertension; Obesity, unspecified classification, unspecified obesity type, unspecified whether serious comorbidity presentStart: 12-01-2023 End: 04-03-8546Cidimd outpatient visit 25 minutesStephany Pelayo PA-C Work Phone: [facility] Primary CareComment on above: Primary hypertension (Primary Dx); Upper respiratory tract infection, unspecified type; Chronic obstructive pulmonary disease, unspecified COPD type (HCC); Family history of pulmonary fibrosis; Retinal hemorrhage of left eyeStart: 57-33-1152LmzhtqAwwkbJustice Pelayo PA-C Work Phone: [facility] Primary CareComment on above: Muscle spasms of both lower extremities; Type 2 diabetes mellitus with diabetic polyneuropathy, with long-term current use of insulin (HCC)Start: 11-09-2023 End: 08-17-9966Lurnjz outpatient new 45 minutesAnders London MD Work Phone: [facility] Ear InstituteComment on above:Vision loss of left eye (Primary Dx); Ocular hypertension of left eye; Proliferative diabetic retinopathy of left eye associated with type 2 diabetes mellitus, unspecified proliferative retinopathy type; Nonproliferative diabetic retinopathy of right eye; Pseudophakia; Dry eye syndrome of bilateral lacrimal glandsStart: 23-62-5066WrnxzsOxfqtikuAries Garcia MD Work Phone: [facility] PsychStart: 10-29-2023 End: 76-55-5144Cbwwcd Homar Gloria [facility] Primary Care Start: 91-79-7250Rzukio Live Pelayo PA-C Work Phone: [facility] Primary CareComment on above: Subacute cough (Primary Dx); Family history of pulmonary fibrosisStart: 45-52-8616Hcguqc Ladarius Casitllo DPM Work Phone: [facility]Start: 10-13-2023 End: 85-11-2419Zkqzmq outpatient visit 25 Heather Pelayo PA-C Work Phone: [facility] Primary CareComment on above: Primary hypertension (Primary Dx); Subacute cough; RUQ abdominal pain; Type 2 diabetes mellitus with diabetic polyneuropathy, with long-term current use of insulin (HCC); Family history of pulmonary fibrosisStart: 10-07-2023 End: 59-99-6453Ltxqcz outpatient visit 25 Dane Garcia MD Work Phone: [facility] PsychComment on above:Bipolar 1 disorder (HCC) (Primary Dx); Post traumatic stress disorder (PTSD); Generalized anxiety disorder; Insomnia, unspecified typeStart: 57-89-1185Ikgorcvffusbv procedureMagnolia Chavira LPNorwalk Memorial Hospital Physicians PsychStart: 43-22-3220IkxvszIyngaJustice Pelayo PA-C Work Phone: [facility] Primary CareComment on above: Muscle spasms of both lower extremitiesStart: 45-15-5932Uoqjox Ladarius Castillo DPM Work Phone: [facility]HealthComment on above:Right foot ulcer, with fat layer exposed (HCC) (Primary Dx)Start: 09-16-2023 End: 50-89-4139Gpsttr outpatient visit 40 minutesSunhkayyya Brittaney Campos MD Work Phone: [facility] NeurologyComment on above: Hearing loss of left ear, unspecified hearing loss type (Primary Dx); Lacunar stroke (HCC); Seizure (HCC)Start: 26-76-0107XmrvqsZuoorhwymi Musgrave [facility] Physicians PsychStart: 10-89-0532Nuodqhbocctky procedureJeayana Castillo [facility] Physicians Primary CareComment on above:DMEStart: 02-47-2939YffnqjCvylxjkiq Gayheart [facility] Physicians Primary CareComment on above:Muscle spasms of both lower extremitiesStart: 09-03-2023 End: 36-87-3440Yeqetdex preventive med est patient 40-64yrsLaura Leann Pelayo PA-C Work Phone: [facility] Primary CareComment on above: Chronic pain syndrome (Primary Dx); Muscle spasms of both lower extremities; Urinary incontinence, unspecified type; Chronic nonintractable headache, unspecified headache type; Chronic obstructive pulmonary disease, unspecified COPD type (HCC); Type 2 diabetes mellitus with diabetic polyneuropathy, with long-term current use of insulin (HCC); Diabetic peripheral neuropathy ([facility]); Diabetic ulcer of right foot associated with type 2 diabetes mellitus, unspecified part of foot, unspecified ulcer stage ([facility]); Hypothyroidism, unspecified type; Primary hypertension; Hypercholesterolemia; S/P placement of cardiac pacemaker; Seizures ([facility]); Bipolar 1 disorder ([facility]); Gastroesophageal reflux disease, unspecified whether esophagitis present; Vitamin D deficiency; Vitamin B12 deficiency; Cigarette nicotine dependence without complicationStart: 08-26-2023 End: 49-96-3535Hmcyrfptf department patient visitFloyd Mercado MD Work Phone: [facility] Emergency DepartmentStart: 65-90-7140CsmgcmKasxynyMatthew Medrano CNP Work Phone: [facility] Primary CareComment on above: Muscle spasms of both lower extremitiesStart: 18-33-0826CkmokyKditamvMatthew Medrano CNP Work Phone: [facility] Primary CareComment on above: Type 2 diabetes mellitus with diabetic polyneuropathy, with long-term current use of insulin (HCC) (Primary Dx); Muscle spasms of both lower extremitiesStart: 08-03-2023 End: 99-54-8032Xmwpgt outpatient new 60 minutesLabryan Pelayo PA-C Work Phone: [facility] PsychComment on above:Post traumatic stress disorder (PTSD) (Primary Dx); Bipolar 1 disorder (HCC); Insomnia, unspecified type; Generalized anxiety disorderStart: 06-22-2023 End: 06-12-3209Hbdyhp outpatient visit 25 minutesHarris Bhat MD Work Phone: [facility] Primary CareComment on above: Bipolar 1 disorder (HCC) (Primary Dx); Type 2 diabetes mellitus with diabetic polyneuropathy, with long-term current use of insulin (HCC); Seizures (HCC); Incontinence in femaleStart: 55-10-1423QplbkxLyaknfaug GaySt. Vincent [facility]ville Physicians Primary CareComment on above:Bipolar 1 disorder (HCC) (Primary Dx) Start: 52-74-8274qcrwhrrwzpIai [facility] Physicians Primary Care Comment on above:High Risk Outreach for High RiskStart: 05-15-2023 End: 35-35-0578Hgnobud Wasserman [facility] Home HealthComment on above:SN HH NON ADMIT VISITStart: 05-15-2023 End: 62-70-4807Tjcxkg outpatient visit 25 minutesStephany Pelayo PA-C Work Phone: [facility] Primary CareComment on above: Left-sided weakness (Primary Dx); Visual loss, left eye; Acute effusion of left ear; Diabetic ulcer of right foot associated with type 2 diabetes mellitus, unspecified part of foot, unspecified ulcer stage (HCC); Gastroesophageal reflux disease, unspecified whether esophagitis present; Weight gainStart: 17-66-0490uogwwjgntgSanrcf [facility] Physicians Primary CareComment on above:High Risk Outreach for High RiskStart: 05-15-2023 Documentation procedureJeayana Jonathan [facility] Primary Care Comment on above:hosp bedStart: 80-47-7209jdmeazasgdJnbjeaeg Neno [facility] IntermediateStart: 79-19-3396nhhsmvazrgFIYZOAllegra PELAYO HomeHealthStart: 05-06-2023 End: 07-82-8950Uvobwt outpatient new 45 minutesLaura Leann Pelayo PA-C Work Phone: [facility] Primary CareComment on above: Non-recurrent acute suppurative otitis media of left ear without spontaneous rupture of tympanic membrane (Primary Dx); Type 2 diabetes mellitus with diabetic polyneuropathy, with long-term current use of insulin (HCC); Diabetic ulcer of right foot associated with type 2 diabetes mellitus, unspecified part of foot, unspecified ulcer stage ([facility]); Diabetic peripheral neuropathy ([facility]); Hypertensive urgency; Chronic obstructive pulmonary disease, unspecified COPD type ([facility]); Chronic chest pain; S/P placement of cardiac pacemaker; Hypothyroidism, unspecified type; Seizures ([facility]); Bipolar 1 disorder ([facility]); Insomnia, unspecified type; Gastroesophageal reflux disease, unspecified whether esophagitis present; Generalized weakness; Muscle spasms of both lower extremities; Vitamin B12 deficiency; Vitamin D deficiency; Incontinence of feces, unspecified fecal incontinence type; Cigarette nicotine dependence without complication; Screening for cervical cancer; Encounter for screening mammogram for malignant neoplasm of breast; Encounter for vaccinationStart: 04-29-2023 End: 85-21-4138Bhjz Coral Colin OTKyioMercy Health St. [facility] Home HealthComment on above:OT NON-OASIS/DISCIPLINE DISCHARGEStart: 04-29-2023 End: 30-80-1319Pgde Daylin Prather PTOhioHealth Home HealthComment on above: PT NON-OASIS/DISCIPLINE DISCHARGEStart: 37-17-1234Zqcvbud Pratt PTA [facility] Home HealthComment on above:HULL AND DECK REMOVER MISSED VISITStart: 04-24-2023 End: 24-20-2120Wwdi Karlo Jameson OTAKyioMercy Health St. [facility] Home HealthComment on above:RETANA MISSED VISITPTA MISSED VISITStart: 04-23-2023 End: 06-87-9214Igge Karlo Jameson OTAOhioHealth Home HealthComment on above:RETANA MISSED VISITStart: 04-22-2023 End: 22-48-7474Gpzx Harvinder Wilcox RNOhioHealth Home HealthComment on above:SN HH OASIS DISCHARGEStart: 04-21-2023 End: 52-53-9378Ziev visitNikko Pratt PTAOhioHealth Home HealthComment on above: HULL AND DECK REMOVER MISSED VISITCASE COMMUNICATIONCARE CONFERENCEStart: 04-20-2023 End: 52-54-6111Bzqc visitAma Wilcox RNOhioHealth Home HealthComment on above:SN MISSED VISITStart: 23-94-7538Yipk visitSharla Paulino PSAOhioHealth Home HealthComment on above:BUDGET ANALYST MISSED VISITStart: 04-15-2023 End: 81-04-6856Pnlp visitTahollie Arias PTAOhioHealth Home HealthComment on above: CASE COMMUNICATIONSN HH ROUTINE VISITCOTA ROUTINE VISITStart: 04-14-2023 End: 40-89-9677Tqux visitDajulius Boston PSAOhioHealth Home HealthComment on above:BUDGET ANALYST HH ROUTINEStart: 04-14-2023 End: 55-34-6317Ztkr visitNikko Pratt PTAOhioHealth Home HealthComment on above: HULL AND DECK REMOVER ROUTINE VISITOT INITIAL EVALUATIONStart: 16-06-2586Aqtk Coral Colin OTOhioHealth Home HealthComment on above:CASE COMMUNICATIONStart: 04-09-2023 End: 08-26-8904Cejf visitDajulius Boston PSAOhioHealth Home HealthComment on above:BUDGET ANALYST HH ROUTINEStart: 04-08-2023 End: 86-52-9846Hcsk Ranulfo Carrera LPNOhioHealth Home HealthComment on above:DOOR CLOSER MECHANIC HH ROUTINEStart: 04-08-2023 End: 91-46-8563Fqsi visitLisa Padron PTOhioHealth Home HealthComment on above: PT INITIAL EVALUATIONStart: 25-29-6331Dsecbud Padron PTOhioHealth Home HealthComment on above:CASE COMMUNICATIONHHA MISSED VISITStart: 04-01-2023 End: 64-08-3506Jmvt visitBonjose antonio Wick [facility] Centerio[facility] Home HealthComment on above:SN HH OASIS START OF CAREStart: 68-78-6652jhwrqpxgowKGBUGK [facility]ALTHCARERiBerger Hospital HospitalStart: 03-30-2023 End: 75-78-4379bgsdoxzftdASFQUI SHUHHomeHealthStart: 03-29-2023 End: 97-00-4958Zwusnjnnf department patient visitDatamika Aaron MD Work Phone: [facility]: 02-17-2023 End: 28-89-9624Jomaoqrxwv and management of inpatientKaren Sairakodak Pickering DO Work Phone: [facility] Surgical 2 NorthStart: 02-09-2023 End: 64-77-3461Udnfyo outpatient new 20 minutesBrent Roman Christianson DO Work Phone: [facility] OrthopedicsComment on above: Strain of right hamstring, initial encounter (Primary Dx); Strain of right knee, initial encounter; Other specified diabetes mellitus with other specified complication, 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)Start: 31-87-4466Aiqefx OnlyBreankita Christianson DO Work Phone: [facility] OrthopedicsComment on above: Right knee pain, unspecified chronicity (Primary Dx)Start: 98-64-8448hxbhyefjks No DoctorFacility:AMCLStart: 87-62-8825Ykcmfrbqyh and management of inpatient RAFAELA KWADWO .Facility:P1Jdazc: 10-11-2022 End: 52-59-2467lgzvfuxxzwYF DOCTOR MISCFacility:J6Guuog: 51-19-0697Unntxqrgd department patient visitUNKNOWN PROVIDERFacility:METROHealthStart: 10-06-2022 End: 83-25-9833Moxicgsui department patient visitUNKNOWN PROVIDER Facility:[facility]Start: 10-06-2022 End: 56-04-5647Npzjzesdn department patient visitJocelyn Bowen MD Work Phone: [facility] Emergency MedicineComment on above:Chart ([facility])Start: 10-06-2022 End: 02-76-4175Sgvzpjhga department patient visitPreston Lugo [facility] Start: 09-18-2022 End: 48-40-6094vtrvbzxhadJSVVTQ RODRIGUEZ .Facility:Q0Rajzv: 09-12-2022 End: 76-93-8793Cyubsfeuia and management of inpatientPepe Echols [facility] Start: 09-12-2022 End: 63-43-8458Bhdekwxqv to same day surgery centerNP-C Laurent Franco Work Phone: [facility] HospitalStart: 09-12-2022 End: 99-68-0584vpslaxqseiTX-C Laurent Franco Work Phone: [facility] Work Phone: Start: 09-09-2022 End: 84-78-3639glyquwtwihZTDSL LEWIS .Facility:G9Zvdwu: 09-07-2022 End: 17-25-4084zppccfmhmlPT DOCTOR MISCFacility:G8Begqy: 09-02-2022 End: 52-48-7054vgjidwxbanRsishys Langenberg Other [place] [facility] Other Start: 45-86-6049Wdymijxxx encounterShameka Romero [facility] Vascular SurgeryStart: 08-29-2022 End: 85-64-7186Wfhsrjs encounter procedureLAURENT FRANCO [facility] Start: 08-20-2022 End: 06-01-4207Ayuotganuz and management of inpatientNP-C Kip Soviak Work Phone: [facility] [place] [facility] Work Phone: Start: 08-20-2022 End: 21-17-1803Kfaqvtymzx and management of inpatientNP-C Kip Sorandyak Work Phone: [facility] [place] [facility] Work Phone: Start: 28-75-6064gvkupsfhikx encounterNP-C Kip W Sorandyak Work Phone: [facility] Work Phone: Start: 08-19-2022 End: 39-39-2330Dozexfezi department patient visitSantos Velez [facility] Start: 10-44-1778sialvbewkxXFED TAMLYN .Facility:H1 Start: 08-02-2022 End: 92-34-4612Ykahzzritr and management of inpatientDR POLO MILTON Facility:N3Kmcdl: 07-30-2022 End: 06-17-1608ezyckezdrwYR SACHI ROQUE .Facility:X9Nlnfc: 07-10-2022 End: 19-06-4540rgpvzoecusKIUTSQ RODRIGUEZ .Facility:B3Sunty: 06-21-2022 End: 14-48-9855ndnpvrrdalFE ROBERT LUX .Facility:R6Jlkza: 06-11-2022 End: 89-18-5985jmbuuzidguZVQ BROWNEFacility:Z7Pnoeg: 06-02-2022 End: 70-98-1971Cbfctqfux department patient visitAstrit Nicole Jose MiugelUniversity Hospitals [facility]ar[facility] Start: 05-15-2022 End: 9719Wiiatbfsw department patient visitSantos Velez [facility] Start: 04-20-2022 End: 67-41-9995ongpwiajfpNXW BROWNEFacility:D3Oifgn: 04-06-2022 End: 33-39-4287Jfbxwqdelu and management of inpatientAshutosh MENARD [facility] Start: 03-31-2022 End: 00-51-8469uuhevfhahkEMGDTJ RODRIGUEZ .Facility:Y7Cdihe: 03-04-2022 End: 83-79-2421lnyzddulrjPS DOCTOR MISCFacility:I4Ixatf: 02-27-2022 End: 15-57-1107Hzsgxapuk department patient visitGui Schafer [facility] Start: 02-21-2022 End: 02-64-2053Zhdqqdmsr department patient visitIrajtiffanie MaldonadoMaris Velez [facility] Start: 02-17-2022 End: 48-75-0734xzllvklalgXR MICHI MENDEZ .Facility:H7Ilxjx: 02-06-2022 End: 85-42-2011bjonsayqwbOB POLO KLINEERFacility:J9Xbzgk: 01-24-2022 End: 52-04-2921Qpowhaebt department patient visitPreston Lugo [facility] Start: 01-09-2022 End: 03-17-4413XjcsapekuozPuijar P LISAUniversity Hospitals [facility] Start: 01-01-2022 End: 42-53-2158onznztosqgBMGCK PARKERFacility:S5Quxlr: 01-01-2022 End: 41-47-5665Guxlpro encounter procedureBreanna Gu [phone]-SmzbxUniversity [facility]als [facility] Start: 12-12-2021 End: 26-70-4894Mgjzmfa encounter Dc Gu [phone]-XaaiwUniversity Hospitals Health [facility] Start: 12-08-2021 End: 38-45-6862Nstwhoxqu department patient visitCEM MARIODayton Children's Hospitaltart: 12-08-2021 End: 50-77-9841Swxzkdjpr department patient visitAntoine Sosa MD Work Phone: [facility] EDComment on above:Other insomnia (Primary Dx)Start: 12-08-2021 End: 0680Zzjvnhcmo department patient visitSantos Moreno [facility] Start: 12-04-2021 End: 42-89-8020fovsmywcfsGZ DOCTOR MISCFacility:R0Kvyhd: 12-02-2021 End: 51-76-8051Cdgstct encounter procedureBreanna Gu 201-1894Dqwzoh-JttnbUniversity Hospitals [facility] Start: 11-28-2021 End: 36-30-6548gfceobbzxkRK DOCTOR MISCFacility:V2Orcdq: 11-27-2021 End: 04-19-4210Yybcajv encounter procedureBreanna Gu [phone]-DnvpyUniversity Hospitals Health System [facility] Start: 11-04-2021 End: 32-88-5384Cwngbvmmqg and management of inpatientAhmad MousscolinUniversity Hospitals Samaritan Medical Center Start: 10-30-2021 End: 19-18-2690Jtd Drop offBreanna Gu [facility] Start: 10-10-2021 End: 45-04-9931Rtq-admission assessmentNancy GUTIERREZ [facility] Start: 10-09-2021 End: 88-15-2758Svmoafdmx department patient visitSantos JoelMaris Velez [facility] Start: 10-03-2021 End: 94-09-7731Tvznjrz encounter procedureBreanna Gu [facility] Start: 09-30-2021 End: 37-70-2479Erblmhw encounter procedureBreanna Gu [phone]-HcomhUniversity Hospitals Health System [facility] Start: 09-30-2021 End: 24-40-8231Abctqgmfdxbfp examination doneBreanna Gu [phone]-YbmzwUniversity Hospitals Health System [facility] Start: 09-27-2021 End: 47-95-0983Gtrsgey encounter procedureSoto BoxUniversity Hospitals Samaritan [facility] Center Start: 09-02-2021 End: 45-10-7831Dhj-admission assessmentAmancecilia GUTIERREZ [facility] Start: 09-02-2021 End: 20-74-0538Eurebxd encounter Balwinder Abbott [facility] Start: 08-29-2021 End: 40-61-8545Exwqdjt encounter procedureBreanna Gu [facility] Start: 06-14-2021 End: 10-11-0243dbtirvxyypEfqeet Dymond Other [place] [facility] Other Start: 48-38-5308Stndcl outpatient visit 15 minutes Herlinda AsimG [facility]deStart: 08-02-2020 End: 59-58-0127Emcqqz OnlyKathleen Saira Baxter Work Phone: [facility] Start: 06-03-2020 End: 14-33-7203Llvbfsdznh and management of inpatientKATADALGISA [facility] Hospitaltart: 39-40-0377Moopzqop care ill/injured patient init 30-74 minDavilauren Hankins Work Phone: [facility]bleStart: 06-03-2020 End: 45-33-1782Xeccpxgolp and management of inpatientDavid Keshav Hankins Work Phone: [facility] on above:Type 2 diabetes mellitus with left diabetic foot infection (HCC) (Primary Dx); Diabetic infection of left foot (HCC); Abscess of chinStart: 08-10-2019 End: 17-72-0535Wfejggazy department patient visitANDREA Thuy CAMPIFacility:[facility] Start: 11-29-2018 End: 34-68-8503Spjqnrx encounter procedureMattAdams County Regional [facility] Start: 09-07-2018 End: 89-78-5440Mnahxscorf and management of inpatientU[facility]L [facility] Start: 49-12-7939Ebilbdwdvu RecurringWittPiedmont [facility] Start: 07-23-2018 End: 41-24-5255Wyinmeakrc RecurringUofL Health - Jewish Hospital [facility] Start: 06-25-2018 End: 26-28-9147Txxygke encounter procedureNONE PHYSICANFacility:Start: 05-04-2018 End: 85-79-7426Bqaihwe encounter procedureMattAdams County Regional [facility] Start: 09-01-2017 End: 39-93-2367Mhdalshwt department patient visitCEM [facility] HospitalStart: 07-17-2017 End: 39-30-0674KomijyfuvzYMFEWHY ALLAN SADAAHMETRiverside Methodist HospitalStart: 06-26-2017 End: 65-59-4089Brxbzkwja department patient visitMichi San Work Phone: [facility] Emergency DepartmentStart: 06-23-2017 End: 69-58-1528Tlbfwwi encounter procedureMattLifePoint Health Regional [facility] Start: 02-16-2017 End: 05-92-5551Tycdchpyk department patient visitCHMURIEL Miller [facility] HospitalStart: 02-09-2017 End: 27-14-3243Jcibwntj ReferredMattAdams County Regional [facility] Start: 01-16-2016 End: 88-64-8412Gtxaefxxt to day surgeryNorth[facility] Start: 10-02-2012 End: 12-45-2963Dwetipqsp department patient visitMattLifePoint Health Regional [facility] Start: 04-23-2012 End: 19-78-0376Echbogtf ReferredMattLifePoint Health Regional [facility] Start: 12-23-2009 End: 50-13-7115Oulxyumf ReferredMattLifePoint Health Regional [facility] Start: 12-21-2002 End: 93-97-4949Eowclipoa department patient visitMattw [facility] Start: 08-25-2002 End: 10-79-1382Rzfhgnwgh department patient visitMattLifePoint Health Regional [facility] Start: 06-27-2002 End: 20-76-0897Hyyeamw encounter procedureMatthew WidmerFirelands [facility] Start: 05-08-2002 End: 22-66-9200Nwexcoapj department patient visitMattLicking [facility] Start: 10-25-2001 End: 35-62-5140Xylefiu encounter procedureMaMercy Health [facility] Start: 10-27-1999 End: 08-92-5341Rokdwfvww department patient visitMattAdams County [facility] Start: 09-10-1999 End: 60-09-3468Edhjixxjo department patient visitMattAdams County [facility] Procedures DateProcedureProcedure DetailPerforming ClinicianStart: 24-36-3197UPQN OTHER ORDERSChristian Wei Kumar MD Work Phone: start: 02-02-2025 End: 09-54-6220Wkye bld gluc mntr dev cleared fda spec home useSergio Resendez MD Work Phone: Start: 14-34-8059Xfjhk cultureGilcrest John DUMONT Work Phone: Start: 00-27-3688BVDTPZK Olive Aguirre MD Work Phone: Start: 51-70-8116KNLYZCF GLUCOSEElda Aguirre MD Work Phone: Start: 14-66-3783Waprt metabolic panel calcium total Hanna Mari MD Work Phone: Start: 20-03-3787QEBBANH Olive Aguirre MD Work Phone: Start: 02-54-3413LZQWHFL Olive Aguirre MD Work Phone: Start: 50-37-2674MADMXXJ Olive Aguirre MD Work Phone: Start: 00-01-9819NDHESIB GLUCOSEBryrosaura Aguirre MD Work Phone: Start: 00-58-9856Yhqbn metabolic panel calcium total Hanna Kamaljit STEVENS Work Phone: Start: 47-48-7918JDMICCJ GLUCOSEVanessa Vargas MD Work Phone: Start: 89-92-0238KEKRKVR GLUCOSEVanessa Vargas MD Work Phone: Start: 78-79-4278IJXAJNJ GLUCOSEVanessa Vargas MD Work Phone: [phone]: 12-03-2024 End: 97-79-3538OGQSVFM GLUCOSEVanessa Vargas MD Work Phone: Start: 12-03-2024 End: 09-46-6100HGJVMJG GLUCOSEVanessa Vargas MD Work Phone: Start: 98-45-0277BZOBSBI GLUCOSEVanessa Vargas MD Work Phone: Start: 12-03-2024 End: 28-76-8493ARCIGOA GLUCOSEVanessa Vargas MD Work Phone: Start: 12-03-2024 End: 99-49-5888Psxxyjbjtja panelLianne Mccormick MD Work Phone: Start: 12-03-2024 End: 90-19-7564BEBSTLX GLUCOSEVanessa Vargas MD Work Phone: Start: 12-03-2024 End: 57-45-7686VRRWZMM GLUCOSEVanessa Vargas MD Work Phone: Start: 48-94-8440[place] depression screening assessment Addie Chavira MAStart: 90-19-8775Jzzqtt-up visitFollow-upLAURA LEANN PELAYOStart: 96-74-7150Kvqqrgraklswf metabolic panelLaura Leann LEONARDC Work Phone: Start: 21-14-6772Jkdfq panelLaura Leann Pelayo PA-C Work Phone: Start: 37-51-5446Xxkydkt measurementSher Dianne Rizzo MD Work Phone: Start: 67-71-7835Vvhifoc measurementGeneric [facility] Work Phone: Start: 49-21-0177Uvcrv function panelSher Dianne Rizzo MD Work Phone: Start: 86-14-4664Fvtikly measurementGeneric [facility] Work Phone: Start: 86-57-5176Wsskphe measurementGeneric [facility] Work Phone: Start: 49-09-1832Oqjwnmp measurementGeneric [facility] Work Phone: Start: 01-75-2619Hfsotnh measurementGeneric [facility] Work Phone: Start: 21-13-4974Poadk function panelSher Dianne Rizzo MD Work Phone: Start: 36-08-3916Rffjcuw measurementGeneric [facility] Work Phone: Start: 33-66-2195Cdjqkhp measurementGeneric [facility] Work Phone: Start: 03-15-0310Npjjefk measurementGeneric [facility] Work Phone: Start: 88-65-3763Qprbcyy measurementGeneric [facility] Work Phone: Start: 73-56-2606Mgcjwvg measurementGeneric [facility] Work Phone: Start: 94-71-0653Dnplb function panelSher Dianne Rizzo MD Work Phone: Start: 22-03-4981Fuxwzrh measurementGeneric [facility] Work Phone: Start: 10-20-2942Hlhcz foot complete minimum 3 views Jacoby Dooley MD Work Phone: Start: 35-30-6043Sbrzm metabolic panel calcium total Jacoby Dooley MD Work Phone: Start: 72-68-7016J-reactive proteinJacoby Dooley MD Work Phone: Start: 94-58-5951EJON TATO Dooley MD Work Phone: Start: 75-72-3674KILEBKAA Adalberto Dooley MD Work Phone: Start: 52-42-3520EKFYS BLUE Adalberto Dooley MD Work Phone: Start: 88-81-5653JPPYC TATO Dooley MD Work Phone: Start: 88-58-8263KGVO TATO Dooley MD Work Phone: Start: 03-20-5714PNCYNWU Aristides Dooley MD Work Phone: Start: 15-44-9673Tbgfn function panelTodd Corbey DO Work Phone: Start: 64-94-7819Epgab function panelTodd Corbey DO Work Phone: Start: 70-21-5856Bcbvjnj measurementGeneric [facility] Work Phone: Start: 68-62-4047Qugbi function panelTodd Corbey DO Work Phone: Start: 77-02-5133Smzjfcs measurementGeneric [facility] Work Phone: Start: 03-87-0102Vtslf foot complete minimum 3 views Shameka Castillo DPM Work Phone: Start: 04-01-2024 End: 10-33-9736Nbn bact xcpt urine blood/stool aerobic isolMattlori Castillo DPM Work Phone: Start: 04-01-2024 End: 93-87-4052Riyvwpxyko toe metatarsophalangeal jointMattlori Castillo DPM Work Phone: Start: 33-48-3569Cabpjfe measurementGeneric [facility] Work Phone: Start: 13-62-5565Stbol function panelTodd Corbey DO Work Phone: Start: 94-41-5922Aq lower extremity w/o contrast materialMattlori Castillo DPM Work Phone: Start: 31-67-4012Qw abdomen & pelvis w/o contrast materialMiryam Stephany Rajput MD Work Phone: Start: 65-13-2201Mhnez function panelTodd Corbey DO Work Phone: Start: 32-34-8830Qbogekn measurementGeneric [facility] Work Phone: Start: 76-71-8526Umfgsyx measurement[facility] Work Phone: Start: 63-58-7022Hhyhicv measurementGeneric [facility] Work Phone: Start: 08-59-4572Beefiek measurementGeneric [facility] Work Phone: Start: 13-67-8445Pvqyt function panelTodd Corbey DO Work Phone: Start: 56-20-0561Zigolkt measurementGeneric [facility] Work Phone: Start: 08-20-9112Exmknke measurement[facility] Work Phone: Start: 03-29-2024 End: 75-67-9461Fjwzzio measurementGeneric [facility] Work Phone: Start: 84-93-0382Radhsrn measurementGeneric [facility] Work Phone: Start: 95-45-0541Nlzwu function panelTodd Corbey DO Work Phone: Start: 59-34-0208Esnbpqd measurementGeneric [facility] Work Phone: Start: 93-37-3610Yaoqyzo measurementGeneric [facility] Work Phone: Start: 55-60-6682Upzwssq measurementGeneric [facility] Work Phone: Start: 36-25-2949Ntvkfxe measurementGeneric [facility] Work Phone: Start: 48-01-0806Uimbe function panelTodd Corbey DO Work Phone: Start: 85-40-3288Lgofnrp measurement[facility] Work Phone: Start: 86-87-3223Ny retroperitoneal real time w/image Declan Serrato MD Work Phone: Start: 91-09-1286Pqaytqx measurementGeneric [facility] Work Phone: Start: 43-37-2532Iskvmki measurementGeneric [facility] Work Phone: Start: 91-54-8655Lqcrsfr measurement[facility] Work Phone: Start: 03-27-2024 End: 24-78-1004Vraexkcetg exam chest single viewTodd Corbey DO Work Phone: Start: 16-45-3369Fsysnia measurement[facility] Work Phone: Start: 26-41-7432Awxparakpkgmn metabolic panelDella Jordan John NAVAL ENGINEER Work Phone: Start: 42-17-4759Fjqjrng measurementGeneric [facility] Work Phone: Start: 82-01-7134Wgjpy metabolic panel calcium total John Chaparro MD Work Phone: Start: 36-82-1811Vpevrso measurementGeneric [facility] Work Phone: Start: 68-42-7240Nbvrmuu measurement[facility] Work Phone: Start: 17-39-5098Vtztgeu measurementGeneric [facility] Work Phone: Start: 03-26-2024 End: 87-40-4193Igwtimt measurementGeneric [facility] Work Phone: Start: 98-68-7867Vuxvzjcfsj bloodRylee Manish [facility],PharmDStart: 33-85-7248LKTFGXRL TOPJennifer Lopez [facility] Work Phone: Start: 39-41-5523ZRHUVTZ DRAWJennifer Lopez [facility] Work Phone: Start: 24-05-4263Edfuagp measurementGeneric [facility] Work Phone: Start: 58-68-6227Mkitgsl measurementGeneric [facility] Work Phone: Start: 26-37-6942Xwuxv of lactateAni Gonzales [facility] Work Phone: Start: 54-78-2166Zqm bact xcpt urine blood/stool aerobic isolBryha Rajan PA-C Work Phone: Start: 88-78-1298Bjgzgcn measurementGeneric [facility] Work Phone: Start: 49-82-4408Itono of lactateAni Gonzales [facility] Work Phone: Start: 33-85-0260NrzgiogamixibjqldPopqppy [facility] Work Phone: Start: 03-25-2024 End: 22-23-9611Oxmxp metabolic panel calcium totalImbutch Smith MD Work Phone: Start: 03-25-2024 End: 46-08-4166Mywxmwc measurementGeneric [facility] Work Phone: Start: 03-25-2024 End: 89-27-7609Kwogbnu measurementDatamika Aaron MD Work Phone: Start: 59-35-9981Cjegxoe bacterial quanttative colony count urineAni Gonzales [facility] Work Phone: Start: 43-47-8759Gwe routine ecg w/least 12 lds trcg only w/o i&rAlaina Camila Gonzales [employer] Work Phone: Start: 62-59-1222Yxlfgstoabktw metabolic panelAni Gonzales [facility] Work Phone: Start: 28-60-7061Yxniq blood ph direct jordin xcpt pulse oximitryAldebbie Gonzales [facility] Work Phone: Start: 95-94-5519IRAG Russell Aaron MD Work Phone: Start: 30-37-3833Ptznvav function panelAni Gonzales [facility] Work Phone: Start: 62-83-0730FNGRB BLUE Russell Aaron MD Work Phone: Start: 82-71-2957KQMOKE VENOUS BLOOD GASES AND PERFORM Ani Gonzales [facility] Work Phone: Start: 63-65-9508SVAXBJX DRAWKo Aaron MD Work Phone: Start: 96-57-0461Smwdq toe minimum 2 viewsKo Aaron MD Work Phone: Start: 01-18-2024 End: 64-88-2794Zcbzmzd measurementGeneric [facility] Work Phone: Start: 86-41-5631Cydmu function panelJojose Lainez PA-C Work Phone: Start: 47-28-9456Iqakgmy measurementGeneric [facility] Work Phone: Start: 63-98-0305Eybubsm measurementGeneric [facility] Work Phone: Start: 85-53-1601Yuxgoza measurement[facility] Work Phone: Start: 09-95-7870Ra head/brain w/o contrast material Ruthy Dong MD Work Phone: Start: 31-69-0426Rhxzhkb measurement[facility] Work Phone: Start: 86-08-7913Xtphhhe measurement[facility] Work Phone: Start: 89-32-6296Tooqu function panelJoua Migel PA-C Work Phone: Start: 40-39-0495Ujodlmj measurementGeneric [facility] Work Phone: Start: 48-61-4155Suchg dip stick/tablet reagent auto microscopyMary Lou Castillo [employer] Work Phone: Start: 27-44-0887Lxodpdx [facility] Work Phone: Start: 18-03-3897Nm retroperitoneal real time w/image completeAlloumar Castillo NAVAL ENGINEER Work Phone: Start: 49-93-0459Hmmtgcd [facility] Work Phone: Start: 74-75-1958Viejxhe [facility] Work Phone: Start: 65-74-8520Cdowj function panelJoshua Radisson PA-C Work Phone: Start: 01-15-2024 End: 28-98-7915Owefpyl [facility] Work Phone: Start: 53-08-7903Bnrij function panelJoshua Radisson PA-C Work Phone: Start: 45-70-7238Jdgur dip stick/tablet reagent auto microscopyRuthy Dong MD Work Phone: Start: 59-21-3446Gkdxoux [facility] Work Phone: Start: 27-27-1964Qmynecl [facility] Work Phone: Start: 22-57-0924Mkxzpqg [facility] Work Phone: Start: 27-96-3028Bgtnvfr [facility] Work Phone: Start: 57-04-9420Hlkne function panelJojim Lainez PA-C Work Phone: Start: 19-54-2253Pvrzhda [facility] Work Phone: Start: 01-13-2024 End: 45-08-5397Snvipem [facility] Work Phone: Start: 77-46-3168Ho lower extremity w/o contrast materialMatthew Timothy Castillo DPM Work Phone: Start: 87-74-7653Gffizny [facility] Work Phone: Start: 40-97-5708Fplzsip [facility] Work Phone: Start: 27-05-0018Fhjyw count complete automatedEnrique Lainez PA-C Work Phone: Start: 83-34-1283Oomut function panelEnrique Lainez PA-C Work Phone: Start: 23-48-1659Oix routine ecg w/least 12 lds trcg only w/o i&rJlandry Leigh MD Work Phone: Start: 90-03-6998Vndaoxw measurement[facility] Work Phone: Start: 86-59-9341Crrly foot complete minimum 3 views Matheus Chavira PA-C Work Phone: Start: 75-73-5243Iidte metabolic panel calcium total Matheus Merrick Chavira PA-C Work Phone: Start: 11-97-1166R-reactive proteinZamonisha Merrick Chavira PA-C Work Phone: Start: 47-12-4535LVVAVDBE Adalberto Dooley MD Work Phone: Start: 51-55-3826VGGZG BLUE Adalberto Dooley MD Work Phone: Start: 59-21-1405LVHQV GREEN Adalberto Dooley MD Work Phone: Start: 28-58-4480WQNL GREEN Adalberto Dooley MD Work Phone: Start: 56-09-6935GGZSGSV DRAWJacoby Dooley MD Work Phone: Start: 26-73-0220Uifsyvmso influenzaLabryan Pelayo PA-C Work Phone: Start: 98-67-7423Rrxi-cov-2 detection by dna/rnaLaura Leann Pelayo PA-C Work Phone: Start: 10-95-9548Pasafw photography w/interpretation & reportAnders London MD Work Phone: Start: 62-46-0423Sjwbypuadt ultrasound dx b-scan w/wo a-scanAnders London MD Work Phone: Start: 11-76-1771Czblgvlxlrhs [Mass/volume] in Urine by Test stripStepsidra Gaydanica LPNStart: 08-26-2023 End: 09-68-0882Etttaynhbu examination tibia & fibula 2 viewsAndkael Mercado MD Work Phone: start: 88-53-8255Nnafzvz measurementSileshi Manoj Hennessy MD Work Phone: Start: 60-75-4427Ailxgki measurement[facility] Work Phone: Start: 72-07-1895Mdmaw function panelJoshua Migel PA-C Work Phone: Start: 01-67-3607Dhsfdmw measurement[facility] Work Phone: Start: 20-25-6013Eftnc of troponin quantitativeKo Aaron MD Work Phone: Start: 33-34-2057ZemlzuxebplfklynaHasrg Paul Androw MD Work Phone: Start: 36-34-2864Ucawvvo measurement[facility] Work Phone: Start: 58-20-1371Uebinblfdrkoy metabolic panelKo Aaron MD Work Phone: Start: 44-05-8728Legzmwa function panelKo Aaron MD Work Phone: Start: 95-73-1844LSHXC BLUE Russell Aaron MD Work Phone: Start: 61-57-6417PEYVQ GREEN Russell Aaron MD Work Phone: Start: 18-65-3942SKUKHXU DRAWKo Aaron MD Work Phone: Start: 90-75-5914Ll thorax w/o contrast materialDatamika Aaron MD Work Phone: Start: 50-88-5151Eflifhwqcx exam chest single view Ko Aaron MD Work Phone: Start: 44-96-4297Clykaqb measurement[facility] Work Phone: Start: 89-92-8876Jqssm metabolic panel calcium total Harshad Dianne Rizzo MD Work Phone: Start: 99-68-0408Gtmuhwm measurement[facility] Work Phone: Start: 73-55-6241Nsrzlvu measurement[facility] Work Phone: Start: 82-09-9234Cfygzgu measurement[facility] Work Phone: Start: 20-77-9714Lqbunoz measurement[facility] Work Phone: Start: 25-03-1622Ucyexfr measurement[facility] Work Phone: Start: 02-19-2023 End: 10-04-7183Ilebatj bacterial blood aerobic w/id isolatesHarshad Rizzo MD Work Phone: Start: 02-19-2023 End: 33-17-3463Jsozl metabolic panel calcium totalSher Dianne Rizzo MD Work Phone: Start: 84-73-6952Gpwttry measurement[facility] Work Phone: Start: 88-53-4734Qutqfqp measurement[facility] Work Phone: Start: 71-70-2141Pasa tthrc r-t 2d w/wom-mode compl spec&colr dSher Dianne Rizzo MD Work Phone: Start: 15-52-5228Oseluix measurement[facility] Work Phone: Start: 56-60-6473Guabcrf measurement[facility] Work Phone: Start: 72-87-2665Ilinpqopfe spect multiple studies Cate King MD Work Phone: Start: 09-46-9440Jnjtrwz measurementGeneric [facility] Work Phone: Start: 73-69-7914Fmpnz of troponin quantitativeVitimothy Butcher MD Work Phone: Start: 41-41-0552JphoqwcgxasvjagqpCaarxqn [facility] Work Phone: Start: 02-18-2023 End: 88-50-1843Akvrw metabolic panel calcium totalVijay Seb Guadalupe MD Work Phone: Start: 34-84-1415Kztrqbn measurementGeneric [facility] Work Phone: Start: 58-63-0187Phqpj of troponin Ashley Butcher MD Work Phone: Start: 86-08-5559Vz thorax w/o contrast materialHayde Pickering DO Work Phone: Start: 39-32-4756Pe head/brain w/o contrast material Hayde Pickering DO Work Phone: Start: 53-95-4560Azelh dip stick/tablet reagent auto microscopyHayde Pickering DO Work Phone: Start: 48-29-9601Yvuwuxcsvpari metabolic panelHayde Pickering DO Work Phone: Start: 11-70-1154KSQOB BLUE TOPHayde Reyes DO Work Phone: Start: 07-12-3346TWEKS GREEN TOPHayde Reyes DO Work Phone: Start: 60-95-8605CIZKJGM DRAWHayde Reyes DO Work Phone: Start: 49-25-2674Gcjaqpfntv exam chest single view Hayde Pickering DO Work Phone: Start: 24-46-2549Enr routine ecg w/least 12 lds w/i&r Hayde Pickering DO Work Phone: Start: 28-65-3635Fl cervical spine w/contrast material Nikko Kendrick DO Work Phone: Start: 11-56-9605TE Thoracic and lumbar spine W contrast IVAaron Kendrick DO Work Phone: Start: 68-31-0719Twidlqwmxmx timeChrismissy Clay MD Work Phone: Start: 14-26-9035Xhwoi typing, ABO, Rho(D) and RBC antibody screeningAaron Kendrick DO Work Phone: [phone]: 33-04-3040Ezmtn of magnesiumAaron Kendrick DO Work Phone: Start: 94-40-0669C-reactive proteinAaron Kendrick DO Work Phone: Start: 75-90-8735Zlufa culture for bacteria, including anaerobic screenNP-C Kip SoviM[employer] Work Phone: Start: 84-82-6826Jdikk volume recorder pneumoplethysmographyNP-C Kip Soviak Work Phone: Start: 31-57-9135P-ray of left footNP-C Kip Soviak Work Phone: Start: 29-40-9089Vqsrvaezruq examination of blood, cultureYESENIA ZAMUDIO .Comment on above:Performed By: #### [id number] ####[facility] Ribldnys[address] [place], [place] [address]Dr. Devin Suresh Start: 58-57-1451Hrgz screen, qualitate/multiMartin Beti Sosa MD Work Phone: Start: 79-07-5593Ixyxmoorbe microscopic onlyMarfadumo Sosa MD Work Phone: Start: 65-52-7513Qanlf dip stick/tablet rgnt auto w/o microscopyMartin Beti Sosa MD Work Phone: Start: 48-21-4726Nyqwjix [Mass/volume] in BloodJames Pascual Work Phone: Start: 27-10-1340Srnhnrl microbial cultureLisa Hendrickson Work Phone: Start: 58-34-7181Ffftmxr [Mass/volume] in BloodJames Pascual Work Phone: Start: 56-04-0092Yllwreb [Mass/volume] in BloodBridger Garner Work Phone: [phone]: 43-63-4958Lqrii metabolic 1999 panel - Serum or PlasmaBridger Garner Work Phone: [phone]: 17-52-4191Wccfseko blood count (hemogram) panel - Blood by Automated countBridger Garner Work Phone: [phone]: 13-51-7712Ytrzdgrrb [Mass/volume] in Serum or PlasmaBridger Garner Work Phone: [phone]: 04-69-7801Aruxzrwclcn [Units/volume] in Serum or Plasma by Detection limit <= 0.005 mIU/LJames Pascual Work Phone: [phone]: 83-95-6754Olsibxm [Moles/volume] in Serum or PlasmaBridger Garner Work Phone: [phone]: 20-06-6461Exkkhrr [Mass/volume] in BloodBridger Garner Work Phone: [phone]: 79-61-7846Pnyvjdd [Mass/volume] in BloodBridger Garner Work Phone: [phone]: 11-98-2051Kfikvhk [Mass/volume] in BloodKatyn Leann Bolivar Work Phone: [phone]: 26-72-1999Ujbrwqy [Mass/volume] in BloodKathryn Leann Sheldon Work Phone: Start: 49-06-0544Awzmx metabolic 2000 panel - Serum or PlasmaKathryn Leann Bayteresita Work Phone: [phone]: 33-27-3620Hvpnkoqh blood count with white cell differential, automatedBreanna Bolivar Work Phone: Start: 17-79-2376Fquyqfhh blood count with white cell differential, manualKatafia Bolivar Work Phone: [phone]: 11-10-1164Ykwhnxzhrx A1c/Hemoglobin.total in BloodDeanna H CareyStart: 42-42-8008Stotafmoj [Mass/volume] in Serum or Plasma Breanna Bolivar Work Phone: Start: 70-87-9592Daxri of lactateDavid Estlow Hankins Work Phone: Start: 55-72-7620Tsfoflm [Mass/volume] in BloodBreanna Bolivar Work Phone: Start: 27-07-4527GNFGI-19, MOLECULARDavid Estlow Hankins Work Phone: Start: 60-76-2511Xh lower extremity w/o contrast materialDavid Estlow Hankins Work Phone: Start: 80-72-4188Tkcbdinc identified in Blood by CultureDavid Estlow Hankins Work Phone: Start: 05-31-2551Opiwi metabolic 1998 panel - Serum or PlasmaDavid Estlow Hankins Work Phone: Start: 99-13-0906Uyrmurug blood count with white cell differential, automatedDavid Estlow Hankins Work Phone: Start: 72-70-3177Pinknkdj blood count with white cell differential, manualDavid Estlow Hankins Work Phone: Start: 86-74-5407Jrancyn [Moles/volume] in Serum or PlasmaDavid Estlow Hankins Work Phone: Start: 81-59-9728KELCD BLUE TOPDavid Estlow Hankins Work Phone: Start: 19-16-9137LWQQJ GREEN TOPDavid Estlow Hankins Work Phone: Start: 13-97-7542RQVUTSS DRAWDavid Estlow Hankins Work Phone: Start: 74-10-7892Bygwlrwbmdb of ankleBreanna Riccardo Comment on above:Left achilles tendon tennex procedure Left achilles tendon tennex procedureStart: 03-13-0730CV head/brain wo con Shameka Whitetart: 11-01-5116Cwooi chest X-rayMattcassandra AlemanNorthern Navajo Medical Centertart: 07-14-2018 Aerobic microbial cultureMattcassandra AlemanNorthern Navajo Medical Centertart: 53-14-0002Pukvekzelfc urinalysis EKYLA TERENCEStart: 31-91-8391SafnueyceqFJDCBELLUTZ TERENCEStart: 09-01-2017 BASIC METABOLIC PANELCHRISTOPHER TERENCEStart: 36-38-2255JRSNI GAS, VENOUS ANTONIOANAND TERENCEStart: 22-45-3958Lzp-scan xtr veins complete bilateral study KEYLA TERENCEStart: 36-98-3419Vilvsiwgze exam chest 2 viewsCHRISTOPHER PRATT Start: 26-27-2592WTHWD METABOLIC PANELCHRISTOPHER TERENCEStart: 09-01-2017 BETA-HYDROXYBUTYRATECHRISTOPHER TERENCEStart: 96-41-4844PVVFPYZRBCDOFW TERENCEStart: 46-85-2706O-DIMER, QUANTITATIVECHRISTOPHER TERENCEStart: 35-67-9317MAIWJLR LEVEL KEYLA TERENCEStart: 87-68-0668GZOVYWYBXTJWNXDFLKCX TERENCEStart: 09-01-2017 TROPONINCHRISTOPHER TERENCEStart: 97-71-7157RVVHGPV MONITORCHRISTOPHER TERENCEStart: 36-99-6312JCHDYB PERIPHERAL IVCHRISTANAND TERENCEStart: 22-74-1347SQP 12-LEAD KEYLA TERENCEStart: 08-41-8003Eeehmbod of Romel Gu Comment on above:PLANTAR FASCIOTOMY ENDOSCOPIC, Left. with ankle lateral stabilization.PLANTAR FASCIOTOMY ENDOSCOPIC, Left. with ankle lateral stabilization.Start: 82-87-8925Lewygsdhgvt of cervical spineMaberger hospitalcassandra Whitetart: 18-66-4352Hjxufgxbyep urinalysisCHRISTOPHER TERENCEStart: 02-16-2017 UA W/REFLEX CULTURECHRISTOPHER TERENCEStart: 81-95-5463BBKLV CULTURECHRISTOPHER TERENCEStart: 51-62-2534CRLLBAAFIVCJWREGZTV TERENCEStart: 10-54-3631Zdxgs x-ray 1 view frontalCHRISTOPHER DAVISStart: 15-50-6025CFTEQS PERIPHERAL IVCHRISTANAND TERENCEStart: 28-62-2035ZGL 12-LEADCHRISTOPHER DAVISStart: 68-73-5026NLOT KEYLA TERENCEStart: 87-34-7698WVZIB METABOLIC PANELCHRISTOPHER DAVISStart: 14-09-3340DBAYP NATRIURETIC PEPTIDECHRISTOPHER DAVISStart: 12-49-4524YGY WITH AUTO DIFFERENTIALCHRISTOPHER DAVISStart: 70-26-8212N-DIMER, QUANTITATIVE KEYLA DAVISStart: 79-70-9055DNJPYPG-INRCHRISTOPHER DAVISStart: 02-16-2017 TROPONINCHRISTOPHER DAVISStart: 28-56-0197Coqeg Plantar FasciotomyArianneadalgisa Gu Start: 92-43-4895Rajcfxayfnuq [Mass/volume] in Urine by Test stripDavid HydeAnkleKleoelvialuli Gu ankle surgery ORIF 3Kathelvialuli Riccardo Comment on above:bilateralbilateralCholecystectomy Breanna Herediaell ColonoscopyBreanna Gu Dentition (body structure)Breanna Gu EsophagogastroduodenoscopyPastoraafia Gu HysterectomyBreanna Gu insertion of Infusaport 4Katafia Gu Comment on above:right chestright chestLaparoscopy Breanna Gu Loop electrosurgical excision procedure of cervix Breanna Gu pacemaker 5Pastoraafia Gu Comment on above:[facility] (body [facility]) Breanna Gu Plan of Treatment DateCare ActivityDetailAuthorStart: 79-17-5999BKA Vaccines (1 - 1-dose 75+ series)RSV Vaccines (1 - 1-dose 75+ series)[facility]Mer[facility] Medical CenterStart: 06-88-1580WXxU,Tdap and Td Vaccines (2 - Td or Tdap)DTaP,Tdap and Td Vaccines (2 - Td or Tdap) [facility] Hospitaltart: 09-56-1155Gczsazu vaccinationMetroHealthStart: 91-67-9144Snszgatsuxw for diphtheria, pertussis, and tetanus Tetanus/Diphtheria/Pertussis (2 - Td or Tdap)OhioHealthStart: 2027 Administration of herpes zoster vaccineZoster Vaccines (1 of 2)OhioHealthStart: 12-20-7375Htodmcmc (RZV) Vaccine (1 of 2)Shingles (RZV) Vaccine (1 of 2) MetroHealthStart: 77-72-1186Jyvfbykphri [Mass/volume] in Serum or Plasma CholesterolMetroHealthStart: 68-78-9992Bzazl BMI ScreeningAdult BMI Screening [facility] Hospitaltart: 86-50-9941Lorzcuzwmg ScreeningDepression Screening [facility] Hospitaltart: 35-62-7364Lfdxzls ScreeningTobacco Screening [facility] Hospitaltart: 09-27-2025 End: 75-00-1068Kohsips encounter grnhqhjud43/06/2026 2:00 PM EDT Procedure Visit [facility] [address] [place] [address] Lj Negron DO [address] [place] [address] [facility] BRIGHTtart: 05-53-2511Gaoro screening for proteineGFR DiabetesOhioHealthStart: 05-30-2025 End: 23-44-4592Qnvyvrj encounter ihuhntkwz99/06/2026 3:05 PM EST Office Visit [facility] [place] [facility] [place] [address] Jim Velez, DO [address] [place] [address] [facility] MarionStart: 92-97-7584Svpgmbzbzn A1c measurementCameron Regional Medical Center Start: 05-04-2025 End: 46-25-9040Amhdwca encounter gbqgarawq19/11/2025 11:30 AM EST [facility] [address] [place] [address] Sergio Resendez MD [address] [place] [address] [facility]ologyStart: 04-24-2025 End: 98-99-9050Vpeteiq encounter owtzixpxq93/01/2025 11:15 AM EST Appointment [facility] [address] [place] [address] Raul Kumar MD [address] [facility] [address] [place] [address] [facility] MRIStart: 04-21-2025 End: 90-61-3491Vjfjshs encounter pahadlhjq05/28/2025 11:15 AM EST Appointment [facility] [address] [place] [address] Raul Kumar MD [address] [facility] [address] [place] [address] [facility] MRIStart: 02-12-3631Vaknd screening for proteineGFR DiabetesOhioHealthStart: 03-25-2025 eGFR DiabeteseGFR DiabetesOhioHealthStart: 35-49-0968Ktwzq screening for protein eGFR DiabetesOhioHealthStart: 06-34-6288Pvyxi screening for proteineGFR Diabetes LouisianaHealthStart: 03-08-2025 End: 55-68-8560Npuxjkw encounter hgyujiisk19/15/2025 11:30 AM EDT Office Visit [facility] [address] [facility] [address] [place] [address] Mihai Elizalde, NAVAL ENGINEER [address] [place] [address] Raul Kumar MD [address] [facility] [address] [place] [address] [facility] PhysiciansStart: 11-33-2491Jssbrpiags A1c measurementDiabetes: Hemoglobin S0ROOJQ HealthcareStart: 03-03-2025 End: 04-37-7143Gtqelpb encounter dillqzkxi44/10/2025 8:00 AM EDT Office Visit [facility] [address] [place] [phone] Lexy Leach MD [address] [place] [phone] [facility] Hospitaltart: 28-71-7117WKVVM-19 Vaccine () COVID-19 Vaccine ()OhioHealthComment on above:Postponed from 01/24/2024 (Treatment Not Available)Start: 15-62-1828EHTWM-19 Vaccine ()COVID-19 Vaccine ()OhioHealthComment on above: Postponed from 01/24/2024 (Treatment Not Available)Start: 02-02-2025 End: 215837-qlbwculrmfanok D3 [Mass/volume] in Serum or PlasmaVitamin D 25 hydroxy Total Lab Routine Type 2 diabetes mellitus with hyperglycemia, with long-term current use of insulin (HCC) Expected: 02/02/2025 (Approximate), Expires: 02/02/2026NORI HealthcareComment on above:Expected: 02/02/2025 (Approximate), Expires: 02/02/2026Start: 02-02-2025 End: 81-26-0755S-peptideC-peptide Lab Routine Type 2 diabetes mellitus with hyperglycemia, with long-term current use of insulin (HCC) Expected: 02/02/2025 (Approximate), Expires: 02/02/2026[facility] Work Phone: Comment on above:Expected: 02/02/2025 (Approximate), Expires: 02/02/2026Start: 68-07-8999Gotnwwprtl A1c wkdwaqglneyBON4R TESTOSParma Community General Hospitaltart: 02-02-2025 End: 67-38-3845Suqtl 1996 panel - Serum or PlasmaLipid panel Lab Routine Type 2 diabetes mellitus with hyperglycemia, with long-term current use of insulin (HCC) Expected: 02/02/2025 (Approximate), Expires: 02/02/2026[facility] Comment on above:Expected: 02/02/2025 (Approximate), Expires: 02/02/2026Start: 02-02-2025 End: 63-08-8202Urgwisuptwkx/Creatinine panel in random UrineMicroalbumin / creatinine urine ratio Lab Routine Type 2 diabetes mellitus with hyperglycemia, withlong-term current use of insulin (HCC) Expected: 02/02/2025 (Approximate), Expires: 02/02/2026[facility] CenterComment on above:Expected: 02/02/2025 (Approximate), Expires: 02/02/2026Start: 02-02-2025 End: 69-30-9999Pemun function panelRenal function panel Lab Routine Type 2 diabetes mellitus with hyperglycemia, with long-term current use of insulin (HCC) Expected: 02/02/2025 (Approximate), Expires: 02/02/2026[facility] Comment on above:Expected: 02/02/2025 (Approximate), Expires: 02/02/2026Start: 02-02-2025 End: 77-70-7325Pjvfbdg encounter qtvniebkg31/11/2025 10:50 AM EDT Office [facility] [address] [place] [address] Sergio Resendez MD [address] [place] [address] [facility] EndocrinologyComment on above:ArrivedStart: 40-05-0752YXKPD-19 Vaccine ( season)COVID-19 Vaccine ( season)OhioHealthStart: 88-37-3285Zqclplpfj vaccination OhioHealthStart: 52-84-2806Yjhgy screening for proteineGFR DiabetesOhioHealth Start: 01-05-2025 End: 88-43-5517Kdaqwch encounter dxeddpjrs75/14/2025 7:30 AM EDT Office Visit [facility] [place] [address] [place] [address] Mihai Elizalde, NAVAL ENGINEER [address] [place] [address] [facility] Management MarionStart: 97-42-3165Fpqixxepwv A1c htubaaitaigV8MWdeiItrgkyYzkcl: 35-67-3730Bqxqfnjm identified in Urine by CultureUrine [facility] Hospitaltart: 80-89-3374Utnuq [facility] Start: 12-21-2024 End: 54-96-6704Lqydhio encounter aqdxkmkoe28/30/2025 10:40 AM EDT Office Visit [facility] [place] [address] [place] [address] Mihai Elizalde, NAVAL ENGINEER [address] [place] [address] [facility] MarionStart: 12-12-2024 End: 65-68-8705Kzhgllz encounter hijpemkvw77/21/2025 3:30 PM EDT Office Visit [facility] [address] [place] [address] Sahara Sanchez MD [address] [place] [address] [facility] EndocrinologyStart: 12-07-2024 End: 52-46-3120Mhqezml encounter hboicbbrz39/16/2025 10:00 AM EDT Office Visit [facility] [address] [place] [address] [place], [place] [phone] Lindsay Johnson, ARCHEOLOGY FACULTY MEMBER-NAVAL ENGINEER [address] [place] [address], [place] [address] [facility] MedicineStart: 12-05-2024 End: 45-81-8266Ahumkvz encounter djwklmedm67/14/2025 2:20 PM EDT Office Visit [facility] [place] [address] Stephany Pelayo PA-C [employer] [address] [address] [facility] Primary Care PhysiciansStart: 34-26-8627Aevlclkn foot examinationDiabetic Foot Exam OhioHealthStart: 27-86-0841Qeymzmgi screeningOhioHealthStart: 11-02-2024 Hemoglobin A1c sglcagvjsarZ6FWuvnGigxksZjfsl: 77-54-1901Qdbqu screening for proteineGFR DiabetesOhioHealthStart: 10-14-2024 End: 87-36-2086Ruounam encounter kecwrekjn14/23/2025 8:40 AM EDT Office Visit [facility] [place] [address] Stephany Pelayo PA-C [address] [address] [facility] Care PhysiciansStart: 10-11-2024 End: 17-02-4139Pzombxg encounter dkmsiyocr37/20/2025 2:30 PM EDT Office Visit [facility] [address] [place] [address] [place], [phone] Mery Robles MD [address] [place] [address] [facility] OrthopedicsStart: 10-10-2024 End: 16-05-2016Esikxkz encounter qmaarfevc99/19/2025 3:40 PM EDT Office Visit [facility] [address] [place] [address] Stephany Pelayo PA-C [address] [place] [address] [facility] Care PhysiciansStart: 09-28-2024 End: 18-63-1969Ghvqsph encounter mijwnobum16/07/2025 9:45 AM EDT Office Visit [facility] [address] [place] [address] Sahara Sanchez MD [address] [place] [address] [facility] EndocrinologyStart: 22-86-4775Yipdh screening for proteineGFR DiabetesOhioHealthStart: 09-23-2024 End: 36-10-1814Kkdukayq Lab Urine Drug ScreenExternal Lab Urine Drug Screen Lab Routine Lumbar radiculopathy Chronic pain syndrome Expected: 09/23/2024, Expires: 09/23/2025[facility] Work Phone: Comment on above:Expected: 09/23/2024, Expires: 09/23/2025Start: 09-23-2024 End: 17-72-8931Tffpdhj encounter lwpwafxet29/02/2025 10:30 AM EDT Office Visit [facility] [place] [address] [place] [address] Jim Velez DO [address] [place] [address] [facility] Hospitaltart: 86-53-7323Ukhkjjb and physical examination, annual for health [facility] VisitOhioHealthStart: 68-82-7118Acictxlcz for malignant neoplasm of colonColorectal Cancer Screening/MonitoringOhioHealth Comment on above:Postponed from 1977 (Patient Refused)Start: 09-02-2024 Urine screening for proteinUrine MicroalbuminOhioHealthStart: 08-23-2024 End: 13-57-2705Gyqcxzt encounter procedureM[facility] Start: 08-22-2024 End: 89-74-4723Gsogkew encounter wgfvrgdot16/31/2025 1:30 PM EDT Office Visit [facility] Primary Care Physicians [address] [place] [address] Rafaela Medrano, NAVAL ENGINEER [address] [place] [address] [facility] Primary Care PhysiciansStart: 08-10-2024 End: 12-63-5699Ffqcrom encounter [facility] Start: 08-09-2024 End: 63-64-8940Inbwnki encounter weqfktjbs76/18/2025 4:00 PM EDT Office Visit [facility] Pain [facility] [place] [address] [place] [address] Jim Velez DO [address] [place] [address] [facility] Pain Management Shanetart: 07-28-2024 End: 40-28-6412Qbislyf encounter havrdkzsf82/06/2025 2:20 PM EST Office Visit [facility] [address] [place] [address] Stephany Pelayo PA-C [address] [place] [address] [facility] Primary Care PhysiciansStart: 07-26-2024 End: 91-36-8153fmjvrsxyvjErnibe Area [facility] Primary Care PhysiciansStart: 07-26-2024 End: 00-00-1132Xxagikz encounter zkadshybw18/04/2025 11:00 AM EST Office Visit [facility] [address] [place] [address] Stephany Pelayo PA-C [address] [place] [address] [facility] Primary Care PhysiciansStart: 74-84-5338Fehfc screening for proteineGFR Diabetes OhioHealthStart: 07-08-2024 End: 21-76-5876Fvymbab encounter dsztactvx19/14/2025 8:50 AM EST Office Visit [facility] [address] [place] [phone] Soto Box, DPM FACFAS [address] [place] [address] [facility] PODStart: 07-07-2024 End: 83-56-8775Urcbhzz encounter pzkubxtgn12/13/2025 2:20 PM EST Office Visit [facility] [address] [place] [address] Stephany Pelayo PA-C [address] [place] [address] [facility] Primary Care PhysiciansStart: 07-05-2024 End: 65-92-7815Yyfthgp encounter jxryqsgtc65/11/2025 8:20 AM EST Office Visit [facility] [address] [place] [phone] Soto Box, DPM FACFAS [address] [place] [address] ArrivedNOMS NMA PODComment on above:ArrivedStart: 06-22-2024 Hemoglobin A1c measurementOhioHealthStart: 06-20-2024 End: 95-37-3387Iwgmagk encounter yqiapvoup90/27/2025 9:40 AM EST Office Visit [facility] Neurology [address] [facility] 2 [place] [address] Virgen Campos MD [address] [facility] [address] [place] [address] [facility] NeurologyStart: 05-11-2024 End: 32-43-4537xrlidybevsWexuqh Area Physicians EndocrinologyStart: 05-11-2024 End: 77-80-5004Vjxlgrf encounter nsvawwpif82/18/2024 2:15 PM EST Office Visit [facility] Endocrinology [address] [place] [address] Sahara Sanchez MD [address] [place] [address] [facility] EndocrinologyStart: 05-11-2024 End: 35-30-6342tnhsjvuoqnThdiitxlb Hospital Wound CareStart: 05-11-2024 End: 40-88-8687Dyjrnyv encounter zzylaocxk30/18/2024 10:15 AM EST Office Visit [facility] [address] [place] [address] Ramiro Hale MD [address] [address] Discharge Disposition: Home [facility] CareStart: 43-74-6806KJJOG-19 Vaccine ( season)COVID-19 Vaccine ( season)OhioHealthComment on above:Postponed from 01/23/2023 (Patient Refused)Start: 49-28-8145Oqmziyrlr C screening Hepatitis C ScreeningOhioHealthComment on above:Postponed from 1995 (Patient Refused)Start: 00-13-2454VMI screeningHIV ScreeningOhioHealthComment on above:Postponed from 1992 (Patient Refused)Start: 41-36-8168Xwpmnwwzo for malignant neoplasm of cervixPap SmearOhioHealthComment on above:Postponed from 1998 (Patient Refused)Start: 05-05-2024 End: 46-72-3066Qlgstrq encounter cahgkmvmt47/12/2024 11:40 AM EST Office Visit [facility] [place] [address] Mihai Elizalde, NAVAL ENGINEER [address] [place] [address] [facility] Pain Management MarionStart: 04-27-2024 End: 72-72-6718wttzwkajhwKootHmzbqo Physician Group Pain Management MarionStart: 04-27-2024 End: 95-72-6664Useofzu encounter bwenjjwut37/04/2024 3:40 PM EST Office Visit [facility] Pain [facility] [place] [address] [address] Mihai Elizalde, NAVAL ENGINEER [address] [place] [address] [facility]ician [facility] Pain Management MarionStart: 04-19-2024 End: 96-32-5949Jaohwtl encounter vdqubvvbt82/26/2024 8:40 AM EST Office Visit [facility] [place] [address] Mihai Elizalde, NAVAL ENGINEER [address] [place] [address] [facility] Pain Management MarionStart: 13-38-4535Giycartx foot examinationDiabetic Foot Exam OhioHealthStart: 05-45-7435Hpfbmbxuym A1c btmcejvgeqvM2GQpglGdrccrCzarc: 04-01-2024 End: 25-89-3080Rtsmguw encounter kwugkcqyq68/08/2024 11:00 AM EST Office Visit [facility] [place] [address] Stephany Pelayo PA-C [address] [place] [address] [place] [address] [facility] Primary Care PhysiciansStart: 03-22-2024 End: 03-26-6448Jgqzuyg encounter vqsipcsaa34/29/2024 11:00 AM EDT Office Visit [facility]icians [facility] [place] [address] Stephany Pelayo PA-C [address] [place] [address] [facility] Primary Care PhysiciansStart: 03-03-2024 End: 77-57-7867Yocznog encounter procedureM[facility] Primary Care Start: 03-01-2024 End: 76-90-4456Lhtlpow encounter /08/2024 11:30 AM EDT Office Visit [facility] Psych [address] [place] [address] Zoë Garcia MD [address] [place] [address] [facility] PsychStart: 02-17-2024 End: 60-00-3126Hnzrrkj encounter /25/2024 1:40 PM EDT Office Visit [facility] Neurology [address] [place] [address] Virgen Campos MD [address] [place] [address] [facility] NeurologyStart: 02-10-2024 End: 87-21-6803Uzjnfly encounter pbfuacnfq74/18/2024 1:00 PM EDT Office Visit [facility] Primary Care Physicians [facility] [place] [address] Rafaela Medrano, NAVAL ENGINEER [address] [place] [address] [facility] Primary Care PhysiciansStart: 02-02-2024 End: 45-09-5579Banwgom encounter npbxaqlku71/10/2024 4:00 PM EDT Office Visit [facility] Pain Management [place] [address] [place] [address] Jim Velez, DO [address] [place] [address] [facility] Pain Management MariRicktart: 01-28-2024 End: 98-33-1505Nifmqma encounter /05/2024 2:00 PM EDT Office Visit [facility] Psych [address] [place] [address] Zoë Garcia MD [address] [place] [address] [facility] PsychStart: 01-27-2024 End: 43-60-4081Vizmcnm encounter orgsndgpn35/04/2024 1:30 PM EDT Office Visit [facility]icians [address] [place] [address] Rafaela Medrano, NAVAL ENGINEER [address] [place] [address] [facility] Primary Care PhysiciansStart: 03-12-9849TKWXE-19 VACCINE ( season)COVID-19 VACCINE ( season)[facility] Campustart: 24-23-2328DQBKP-19 Vaccine ( season)COVID-19 Vaccine ( season)[facility]: 43-50-3287MWOYB-19 Vaccine ( season)COVID-19 Vaccine ( season)[facility] YouWeb [facility]art: 88-00-5504Pkcvvfugo vaccinationInfluenza Vaccine (#1)[facility]: 01-19-2024 End: 23-47-2642Vsxkvep encounter zwiwbjnou57/27/2024 11:30 AM EDT Office Visit [facility] Psych [address] [place] [address] Zoë Garcia MD [address] [place] [address] [facility] PsychStart: 95-78-8778Wuyyojunjg A1c xdnwwugpbytK5EQajgRnnnjdAgrmk: 12-23-2023 End: 08-16-1387tqqunntgvr17/31/2024 3:15 PM EDT Evaluation [facility] Physical Therapy [address] [place] [address] Jim Velez [address] [place] [address] Mary Wells, PT Discharge Dis[facility]: [facility] Physical TherapyStart: 12-22-2023 End: 13-31-3540Xmbpfyt encounter /30/2024 2:00 PM EDT Office Visit [facility] Urology [address] [place], [id number] Sharla Camara PA-C [address] [place] [address] [facility] UrologyStart: 12-21-2023 End: 57-68-9622Ssjluqv encounter ksmaeqwoh79/29/2024 2:00 PM EDT Office Visit [facility] Neurology [address] [place] [address] Virgen Campos MD [address] [place] [address] [facility] NeurologyStart: 12-14-2023 End: 10-85-5420Nvixlvm encounter yyotswhao04/22/2024 10:00 AM EDT Office Visit [facility] Endocrinology [address] [place] [address] Sahara Sanchez MD [address] [place] [address] [facility] EndocrinologyStart: 12-08-2023 End: 63-50-4520Aznrgiw encounter fegqlvizc62/16/2024 2:00 PM EDT Office Visit [facility] Pain Management [place] [address] [place] [address] Stephany Pelayo PA-C [address] [place] [address] Jim Velez, DO [address] [place] [address] [facility] Pain [facility] CenteronStart: 12-03-2023 End: 20-08-0043Plplccr encounter yrngbeqja00/11/2024 2:00 PM EDT Office Visit [facility] Pain Management [place] [address] [place] [address] Jim Velez, DO [address] [place] [address] [facility] Pain Management MarionStart: 12-02-2023 End: 41-41-4906Pkebust encounter vrlcmchep37/10/2024 1:45 PM EDT Office Visit [facility] Endocrinology [address] [place] [address] Stephany Pelayo PA-C [address] [place] [address] Sahara Sanchez MD [address] [place] [address] [facility] EndocrinologyStart: 11-19-2023 End: 29-05-8742Ifhrpok encounter taervehes34/27/2024 12:40 PM EDT Office Visit [facility] Primary Care [address] [place] [address] Stephany Pelayo PA-C [address] [place] [address] [facility] Primary CareStart: 11-19-2023 End: 19-21-8149vergbromck41/27/2024 9:00 AM EDT Evaluation [facility] Ophthalmology [address] [facility], [id number] Stephany Pelayo PA-C [address] [place] [address] Kraon Monzon, [address] [place] [address] [facility] OphthalmologyStart: 10-13-2023 End: 45-96-3587Usztxhp encounter /21/2024 11:20 AM EDT Office Visit [facility] Primary Care [address] [place] [address] Stephany Pelayo PA-C [address] [place] [address] [facility] Primary CareStart: 10-08-2023 End: 35-56-2323Nupoete encounter wqogehtgz93/16/2024 7:00 AM EDT Appointment [facility] EEG [address] [place] [address] Virgen Campos MD [address] [place] [address] [facility] EEGStart: 10-07-2023 End: 95-83-1355Tvdmtlz encounter procedureMansfield Hospital Physicians PsychStart: 35-02-5762Fiicheom screeningDiabetic Eye ExamOhioHealthComment on above: Postponed from 1987 (Per Other Best Practice Guidelines)Start: 09-16-2023 End: 29-03-6060Otqhnyz encounter bgtlsvecu71/24/2024 1:00 PM EDT Office Visit [facility] Neurology [address] [place] [address] Virgen Campos MD [address] [place] [address] [facility] NeurologyStart: 09-03-2023 End: 87-43-8972Axjmasj encounter /11/2024 2:00 PM EDT Office Visit [facility] Primary Care [address] [place] [address] Stephany Pelayo PAKandi [address] [place] [address] [facility] Primary CareStart: 08-19-2023 End: 92-09-6053Bicdouw encounter mfkxppogv86/27/2024 2:00 PM EDT Office Visit [facility] Urology [address] [facility] [place], [place] Sharla Camara PA-C [address] [place] [address] [facility] UrologyStart: 45-39-2859Vyupovfmfj A1c rhthycoolnfM5LAhvxHyiufmXytbk: 08-03-2023 End: 78-05-7745Gcsrqhk encounter brwxjdsab65/11/2024 2:30 PM EDT Initial consult [facility] Psych [address] [place] [address] Stephany Pelayo PA-C [address] [place] [address] Zoë Garcia MD [address] [place] [address] [facility] PsychStart: 18-48-7949Pcgraskf foot examinationDiabetic Foot Exam OhioHealthComment on above:Postponed from 1987 (Per Other Best Practice Guidelines)Start: 07-03-2023 End: 33-06-0696nfrxggztsr55/09/2024 9:00 AM EST Evaluation [facility] Ophthalmology [address] [place], [address] Stephany Pelayo, PACheC [address] [facility] [address] [place] [address] Karon Monzon DO [address] [place] [address] [facility] OphthalmologyStart: 51-04-9871Bmqpkfirni A1c aiscragmcajI4YOzkyUzaadiTcacl: 06-29-2023 End: 82-56-9000Hqdldmr encounter kgpmqoiwp84/05/2024 10:00 AM EST Office Visit [facility] Cardiology [address] [place], [address] Dakota Edward MD [address] [place] [address] [facility] CardiologyStart: 06-23-2023 End: 22-09-6140Trjqwhf encounter tmajbwrfk83/30/2024 8:15 AM EST Office Visit [facility] Endocrinology [address] [place] [address] Stephany Pelayo PA-C [address] [facility] 2 [place] [address] Sahara Sanchez MD [address] [place] [address] [facility] EndocrinologyStart: 06-22-2023 End: 62-88-4364hoyvfwkbnb96/29/2024 2:30 PM EST Evaluation [facility] Ophthalmology [address] [place] [place], [address] Karon Monzon DO [address] [place] [address] ( Work) [facility] OphthalmologyStart: 06-22-2023 End: 05-82-1287Ncrhqbjn identified in Unspecified specimen by Aerobe culture Urine Aerobic Culture Microbiology Routine Incontinence in female Expected: 06/22/2023 (Approximate), Expires: 06/22/2024OhioHealthComment on above: Expected: 06/22/2023 (Approximate), Expires: 06/22/2024Start: 06-22-2023 End: 75-27-8969VanxcsqxtiJxllnkdbvz with microscopic Lab Routine Incontinence in female Expected: 06/22/2023 (Approximate), Expires: 06/21/2024[facility] Work Phone: Comment on above:Expected: 06/22/2023 (Approximate), Expires: 06/21/2024Start: 06-11-2023 End: 68-03-1216Bgbiquk encounter xfmshwgmu49/18/2024 9:00 AM EST Office Visit [facility] Neurology [address] [place] [address] Virgen Campos MD [address] [place] [address] [facility] NeurologyStart: 06-03-2023 End: 96-87-6279Eqimdrw encounter xashnywmc84/10/2024 11:00 AM EST Office Visit [facility] Cardiology [address] [place], [address] Stephany Pelayo PA-C [address] [place] [address] Cristy Najera MD [address] [place] [address] [facility] CardiologyStart: 05-28-2023 End: 51-51-3406Sixg visit05/28/2023 8:00 AM EST Home Care Visit [facility] [address] [place] [address] Sharla Paulino [facility] HealthStart: 05-26-2023 End: 16-56-8308Tveu visit05/26/2023 8:00 AM EST Home Care Visit [place] [address] [place] [address] Sharla Paulino [facility] HealthStart: 53-46-8854Pazqklsh screeningDiabetic Eye ExamOhioHealthComment on above:Postponed from 1987 (Per Other Best Practice Guidelines)Start: 05-21-2023 End: 18-98-5039Gmci visit05/21/2023 8:00 AM EST Home Care Visit [facility] [address] [place] [address] Sharla Paulino [facility] HealthStart: 05-19-2023 End: 74-84-3299Mzeo visit05/19/2023 8:45 AM EST Home Care Visit [facility] [address] [place] [address] Sharla Paulino [facility] HealthStart: 05-15-2023 End: 72-27-5437Yiwajoe encounter procedureM[facility] Primary Care Start: 05-14-2023 End: 39-63-1415Xdmr visit05/14/2023 8:00 AM EST Home Care Visit [place] [address] [place] [address] Sharla Paulino [facility] HealthStart: 05-12-2023 End: 57-96-3278Osmn visit05/12/2023 8:45 AM EST Home Care Visit [facility] [address] [place] [address] Sharla Paulino PSAOhio[facility] HealthStart: 05-07-2023 End: 41-15-7347Snrlfuu encounter ksipswwly42/14/2023 1:00 PM EST Office Visit [facility] Neurology [address] [facility] [address] [place] [address] Virgen Campos MD [address] [facility] [address] [place] [address] [facility] NeurologyStart: 05-07-2023 End: 27-04-9877Qavx visit05/07/2023 8:00 AM EST Home Care Visit [place] [address] [place] [address] Sharla Paulino [facility] HealthStart: 05-05-2023 End: 52-83-3605Bnjq visit05/05/2023 8:45 AM EST Home Care Visit [place] [address] [place] [address] Sharla Paulino PSAOhio[facility] HealthStart: 04-30-2023 End: 52-07-4482Ghbg visitOhioHealth [facility] HealthStart: 04-29-2023 End: 29-84-3579Aseo [facility] HealthStart: 04-28-2023 End: 03-09-4415Kgph visit04/28/2023 10:15 AM EST Home Care Visit [place] [address] [place] [address] Sharla Paulino PSAOhio[facility] HealthStart: 04-27-2023 End: 75-24-6761Wpjm visitOhioHealth [facility] HealthStart: 04-27-2023 End: 83-05-3558Xris visit04/27/2023 4:30 AM EST Home Care Visit [place] [address] [place] [address] Carlitos Carrera [facility] HealthStart: 04-24-2023 End: 94-82-0108Oysv visit04/24/2023 7:30 AM EST Home Care Visit [place] [address] [place] [address] Carlitos Carrera [facility] HealthStart: 04-23-2023 End: 61-07-7353Bbaz visit04/23/2023 12:30 PM EST Home Care Visit [place] [address] [place] [address] Radha Jameson [facility] HealthStart: 04-23-2023 End: 88-15-8959Xvlc visit04/23/2023 9:15 AM EST Home Care Visit [place] [address] [place] [address] Sharla Paulino [facility] HospitalStart: 04-22-2023 End: 44-33-5749Ospo [facility] HealthStart: 04-21-2023 End: 01-13-9282Chqn visit04/21/2023 3:30 PM EST Home Care Visit [place] [address] [place] [address] [address] Arias [facility] HealthStart: 04-21-2023 End: 48-05-4409Tdzk visit04/21/2023 12:30 PM EST Home Care Visit [place] [address] [place] [address] Radha Jameson [facility] HealthStart: 04-21-2023 End: 30-37-9357Hbrw visitUniversity Hospitals [facility] CenterStart: 04-20-2023 End: 54-04-3610Mmve visitUniversity Hospitals Geauga Medical CenterStart: 04-17-2023 End: 87-12-8304Umli visitUniversity Hospitals Geauga Medical CenterStart: 04-15-2023 End: 57-79-1509Eixb visitUniversity Hospitals Geauga Medical CenterStart: 41-00-7811Dwnfhrrtfc A1c kbmurputedcO2XVjcbRixakgZzzuc: 04-14-2023 End: 57-41-2523Tydd visit04/14/2023 12:15 PM EST Home Care Visit [facility] [address] [place] [address] Carolina Boston, [facility] HospitalStart: 04-14-2023 End: 66-82-4291Okkp visit04/14/2023 10:15 AM EST Home Care Visit [place] [address] [place] [address] Sharla Paulino, [facility] HospitalStart: 04-13-2023 End: 73-95-2360Cknd visit04/13/2023 Home Care Visit [place] [address] [place] [address] Tiyn Arias PTA [facility] CenterStart: 04-10-2023 End: 99-63-3288Blsi visit04/10/2023 5:45 AM EST Home Care Visit [facility] [address] [place] [address] Cece Colin, [facility] HospitalStart: 04-09-2023 End: 10-03-5732Gxqd visitUniversity Hospitals Geauga Medical CenterStart: 04-08-2023 End: 23-55-5961Ylki visit04/08/2023 11:30 AM EST Home Care Visit [place] [address] [place] [address] Carlitos Carrera, [facility] HealthStart: 04-07-2023 End: 35-94-4506Fjvu visitOhioHealth [facility] HealthStart: 04-03-2023 End: 19-22-8241Jzkp visit04/03/2023 11:15 AM EST Home Care Visit [facility] [address] [place] [address] Sharla Paulino, PSAOhioHealth [facility] HealthStart: 04-03-2023 End: 40-50-9660Aeoo visit04/03/2023 8:30 AM EST Home Care Visit [facility] [address] [place] [address] Cece Colin, OTOhioHealth [facility] HealthStart: 04-03-2023 End: 70-59-7916Ninl visit04/03/2023 4:30 AM EST Home Care Visit [facility] [address] [place] [address] Karen Prather, PTUniversity Hospitals Geauga Medical CenterStart: 02-09-2023 End: 62-58-8736Bxjuznv encounter pifdmnpjb78/18/2023 2:45 PM EDT Office Visit [facility] Orthopedics [address] [facility] [place], [address] Josué Christianson, DO [address] [place] [address] [facility] OrthopedicsStart: 97-01-6637AXJSQ-19 VACCINE ( season)COVID-19 VACCINE ()[facility]: 78-27-9496ZLMBO-19 VACCINE ()COVID-19 VACCINE ( season)[facility] CenterStart: 41-10-1210LMLYO-19 Vaccine ()COVID-19 Vaccine ()OhioHealthStart: 72-18-5600Brngsjrlq vaccinationSequential Influenza Vaccine (#1)[facility]: 30-46-6013SenoqysnyMarietta Osteopathic Clinictart: 29-14-4494MP DSA (Angiogram) W/TLA/Stent Left Leg (Left)OR DSA (Angiogram) W/TLA/Stent Left Leg (Left)[facility]: 08-22-2022 [facility]: 74-24-6415Eevhi limb angiographyIR Angiogram Left Leg (Left)[facility]: 08-21-2022 Referral to vascular surgeonMarietta Osteopathic Clinictart: 08-20-2022 Blood culture for bacteria, including anaerobic screenBlood CultureMarietta Osteopathic Clinictart: 26-00-5115Ikfomnxn of Left Foot Skin, External ApproachDrainage of Left Foot Skin, External ApproachMarietta Osteopathic Clinictart: 93-23-9889Jolokahk to infectious diseases physicianMarietta Osteopathic Clinictart: 92-17-5493Kovvrlnh admissionMarietta Osteopathic Clinictart: 76-44-0702Arqrrwim to podiatristMarietta Osteopathic Clinictart: 74-47-0960Fpgnm chest X-rayXR chest 1V portableMarietta Osteopathic Clinictart: 55-99-3825X-ray of left footXR foot LT min 3V*[facility]: 19-51-6264KJ Chest Single viewMarietta Osteopathic Clinictart: 80-36-1806TI Foot - left GE 3 ViewsMarietta Osteopathic Clinictart: 39-98-7959Hwvtcelyx for malignant neoplasm of colon [facility] ShoreroMercy Health St[facility] Rita'S Medical CenterStart: 25-51-3644Dnrjfjjwozes Vaccine: Ped or At-Risk (2 - PCV) Pneumococcal Vaccine: Ped or At-Risk (2 - PCV)[facility]: 01-23-2022 Influenza vaccinationFlu vaccine (#1)[facility]: 04-13-2021 COVID-19 Vaccine (2 - Pfizer series)COVID-19 Vaccine (2 - Pfizer series) [facility]biltHealthStart: 59-48-0285CYCVF-19 Vaccine (3 - Mixed Product series)COVID-19 Vaccine (3 - Mixed Product series)[facility]: 97-56-2586BdR6f (Bld) [Mass fraction]U7LWbdhEyfvcyDcmuq: 81-41-9686Jbdgofzbz [Moles/volume] in Serum or PlasmaPOTASSIUMFirelands Regional Medical Center South Campustart: 95-56-0338Cfnboovasn A1c gsjvgjlncgfZND5T TESTFirelands Regional Medical Center South Campustart: 25-85-7337Lycsnekey for malignant neoplasm of breastMetroHealthStart: 00-18-1670Warpivgug vaccination SEQUENTIAL INFLUENZA VACCINE (#1)[facility] Work Phone: Start: 93-82-2157Duwwq panelLipWellmont Lonesome Pine Mt. View HospitalStart: 40-77-9738AgM3jWVUJZNFJDP H0PPhqoJbwplc Work Phone: Start: 71-61-9418Pkego screening for proteinUrine MicroalbuminKyioHealthStart: 06-84-5468Jjzjl, microalbuminURINE MICROALBUMIN [facility] Work Phone: Start: 67-54-1859Opktm panelLIPCleveland Clinic Euclid Hospital CenterStart: 57-31-1177Ktloi screening for proteinKnox Community Hospital Start: 37-30-2856Dqxzkifsn for malignant neoplasm of cervixRussell County Medical Centerart: 67-11-7311Smrlnqgnq for malignant neoplasm of cervixRussell County Medical Centerart: 83-48-4935QYsX/Tdap/Td vaccine (1 - Tdap)DTaP/Tdap/Td vaccine (1 - Tdap)[facility]: 55-21-5829Sgjvunbgt B vaccinationFirelands Regional Medical Center South Campustart: 87-47-1393Pqteq BMI Follow Up PlanAdult BMI Follow Up [facility] SystemStart: 13-90-9261Arktyttov C antibody, confirmatory testHepatitis C ScreeningOhioHealthStart: 31-07-6686Tqqgehjzy C screeningBon Secours Richmond [facility] Hospital: 29-36-8175URLDQ-19 Vaccine (1 of 2) COVID-19 Vaccine (1 of 2)[facility]: 69-93-4877DIN screeningRussell County Medical Centerart: 64-52-6325Nkkjbwqjps ScreenDepression ScreenBON HARRISON COMMUNITY HOSPITALStart: 85-82-1462Wtqqazid foot examination (regime/therapy)OhioMercy Health St[facility] Start: 73-16-0923Hebpbgvz screeningOhioHealthStart: 46-29-1821Augkaolyve examination and evaluationOPHTHALMOLOGY EXAMOhioMercy Health St. [facility]'S Medical Center Work Phone: Start: 41-09-1556Zpeim screening for proteinUrine (micro)albumin/creatinine ratio - DiabetesOhioHealthStart: 17-26-7770Liysori and physical examination, annual for health [facility] VisitKyioMercy Health St. Rita'S Medical Center Start: 74-03-2836Iardfzs-mumps-rubella vaccinationMMR Vaccines (1 of 1 - Standard series)[facility]Start: 89-86-4440FAVGV-19 Vaccine (#1)COVID-19 Vaccine (#1)[facility]OSPITALStart: 23-64-5881Ptzwujwp foot examinationDIABETIC FOOT EXAMOSU St. Mary's Medical Centertart: 21-71-4510Wkopypek screeningEYE EXAMOSU [facility] CenterStart: 04-46-5095Icglvadvs C screeningHEPATITIS C VIRUS SCREENINGOSU St. Mary's Medical Centertart: 81-65-3845Ljumtuvzr for malignant neoplasm of cervixPAP SMEAROhSt. John of God Hospital Work Phone: Start: 99-23-4809Eazvgyymo for malignant neoplasm of colonMetroHealthStart: 24-94-2645Psrxhufab mammographyMammogramOhioHealthStart: 55-51-0957Edzwinv vaccinationKettering Health [facility] Work Phone: Start: 87-57-5022Gcusdvh stimulating hormone measurementWooster Community Hospitaltart: 19-72-8389Gqgklgw Counseling Tobacco CounselingUK HealthcareAerobic microbial cultureWound Aerobic Culture Microbiology Routine 06/05/2020 11:32 AM ESTOhioHealthBacteria identified Cx Nom (Bld)Blood Culture Aerobic/Anaerobic Microbiology Routine 06/03/2020 2:39 PM ESTOhioHealthBacteria identified in Blood by Culture [facility] Work Phone: Bacteria identified in Unspecified specimen by Anaerobe cultureOhioHealth End: 31-66-6605Jseho metabolic 2000 panel - Serum or PlasmaBasic Metabolic Panel Lab Routine Primary hypertension 1 Occurrences starting 09/03/2023 until 09/02OhioHealthComment on above:1 Occurrences starting 09/03/2023 until 09/02/2024 End: 88-54-3188Oufvj metabolic 2000 panel - Serum or PlasmaBasic Metabolic Panel Lab Routine SOLO (acute kidney injury) (HCC) 1 Occurrences starting 01/27/2024 until 01/26/2025[facility] Work Phone: Comment on above:1 Occurrences starting 01/27/2024 until 01/26/2025 End: 69-28-1984Zcceh typing serologic aboABO RH TYPE Lab STAT One time for 1 Occurrences starting 10/07/2022 until 10/07/2022MetroHealthComment on above:One time for 1 Occurrences starting 10/07/2022 until 10/07/2022 End: 51-67-8993Itciyxcksja difficile toxin assayClostridium Difficile Testing Microbiology Routine Diarrhea, unspecified type 1 Occurrences starting 03/22/2024 until 03/22/2025OhioHealthComment on above:1 Occurrences starting 03/22/2024 until 03/22/2025 End: 90-36-9007Krrbtslb blood count with white cell differential, manualCBC and Differential Lab Routine Diarrhea, unspecified type Abdominal cramping 1 Occurrences starting 03/22/2024 until 03/22/2025OhioHealthComment on above:1 Occurrences starting 03/22/2024 until 03/22/2025 End: 20-12-5799Aigqcwps blood count with white cell differential, manualCBC and Differential Lab Routine Primary hypertension 1 Occurrences starting 08/02/2024 until 08/02/2025[facility] Work Phone: Comment on above:1 Occurrences starting 08/02/2024 until 08/02/2025 End: 67-14-2831Anhpgaqdbnlyy metabolic 2000 panel - Serum or PlasmaComprehensive Metabolic Panel Lab Routine RUQ abdominal pain 1 Occurrences starting 10/13/2023 until 10/12/2024OhioHealthComment on above:1 Occurrences starting 10/13/2023 until 10/12/2024 End: 11-85-8447Ynzicfocovwhw metabolic 2000 panel - Serum or PlasmaComprehensive Metabolic Panel Lab Routine Diarrhea, unspecified type Abdominal cramping 1 Occurrences starting 03/22/2024 until 03/22/2025OhioHealthComment on above:1 Occurrences starting 03/22/2024 until 03/22/2025 End: 59-35-1205FUB (STANDARD)EEG (Standard) Neurology Routine Seizure ([facility]) 1 Occurrences starting 09/16/2023 until 09/15/2024[employer] Work Phone: Comment on above:1 Occurrences starting 09/16/2023 until 09/15/2024External Lab Urine Drug ScreenExternal Lab Urine Drug Screen Lab Routine Encounter for monitoring opioid maintenance therapy Ordered: 05/13/2024 [facility] Work Phone: Comment on above:Ordered: 05/13/2024 End: 19-57-1950Kgudvwyojwgtbenc pathogens DNA and RNA panel - Stool by EBONIE with non-probe detectionStool/GI PCR Panel Microbiology Routine Diarrhea, unspecified type 1 Occurrences starting 03/22/2024 until 03/22/2025[facility] Work Phone: Comment on above:1 Occurrences starting 03/22/2024 until 03/22/2025 End: 64-88-5568Unmnqlbehz A1c/Hemoglobin.total in BloodHemoglobin A1c Lab Routine Type 2 diabetes mellitus with diabetic polyneuropathy, with long-term current use of insulin ([facility]) 1 Occurrences starting 09/03/2023 until 09/02/2024 [facility] Work Phone: Comment on above:1 Occurrences starting 09/03/2023 until 09/02/2024 End: 28-17-9936FK Breast - bilateral ScreeningMammography Screening [place] Bilateral Imaging Routine Encounter for screening mammogram for malignant neoplasm of breast 1 Occurrences starting 05/06/2023 until 07/07/2024[employer] Work Phone: Comment on above:1 Occurrences starting 05/06/2023 until 07/07/2024 End: 03-13-2530LC Breast - bilateral ScreeningMammography Screening Bilateral Imaging Routine Encounter for screening mammogram for malignant neoplasm of breast 1 Occurrences starting 08/02/2024 until 10/02/2025OhioHealthComment on above:1 Occurrences starting 08/02/2024 until 10/02/2025MG Breast - bilateral ScreeningMercy Health St. Elizabeth Boardman HospitalMicroalbumin measurement, urine, quantitativeMicroalbumin, Urine, Random Lab Routine Type 2 diabetes mellitus with diabetic polyneuropathy, withlong-term current use of insulin (HCC) Ordered: 12/02/2023[facility] Work Phone: Comment on above:Ordered: 12/02/2023 End: 43-09-2161CD Knee - right WO contrastMR Knee Right Without Contrast Imaging Routine Chronic pain of right knee 1 Occurrences starting 03/08/2025 until 03/08/2026OhioHealthComment on above:1 Occurrences starting 03/08/2025 until 03/08/2026 End: 61-61-3237SG Lumbar spine WO contrastMR Lumbar Spine Without Contrast Imaging Routine Back pain with radiculopathy Degeneration of intervertebral disc of lumbar region with discogenic back pain and lower extremity pain 1 Occurrences starting 03/08/2025 until 03/09/2026[facility] Work Phone: comment on above:1 Occurrences starting 03/08/2025 until 03/09/2026Patient EducationPromedica Flower Hospital Ctr Work Phone: Patient referralPromedica Flower Hospital Ctr Work Phone: Procedure on tissue specimenOhioHealth Work Phone: End: 86-74-1122Yzxqflfzgnk timePROTHROMBIN TIME AND INR Lab STAT One time, now for 1 Occurrences starting 10/07/2022 until 10/07/2022MetroHealthComment on above:One time, now for 1 Occurrences starting 10/07/2022 until 10/07/2022 End: 53-52-6424MR Spine epidural space Views W contrast ITTHE [facility] Work Phone: Comment on above:One time, now for 1 Occurrences starting 10/06/2022 until 10/06/2022 End: 71-85-8431Efmwq levetiracetam measurementLevetiracetam Level Lab Routine Seizures (HCC) 1 Occurrences starting 03/22/2024 until 03/22/2025[facility] Comment on above:1 Occurrences starting 03/22/2024 until 03/22/2025 End: 29-55-6558Qylvaruigssvpt time partial plasma/whole bloodPARTIAL THROMBOPLASTIN TIME Lab STAT One time, now for 1 Occurrences starting 10/07/2022 until 10/07/2022[employer] Work Phone: Comment on above:One time, now for 1 Occurrences starting 10/07/2022 until 10/07/2022 End: 39-89-6532IGIYHCIANY RISK SCREENThrombotic Risk Screen Lab Routine Lacunar stroke (HCC) 1 Occurrences starting 09/16/2023 until 09/15/2024OhioHealthComment on above:1 Occurrences starting 09/16/2023 until 09/15/2024 End: 37-26-1311Hxkdtlxfudy [Units/volume] in Serum or PlasmaTSH with Reflex Free T4 Lab Routine Hypothyroidism, unspecified type 1 Occurrences starting 01/27/20 until 01/26/2025OhioHealthComment on above:1 Occurrences starting 01/27/2024 until 01/26/2025 End: 08-46-6304UI AbdomenUS Abdomen Complete Imaging Routine RUQ abdominal pain 1 Occurrences starting 10/13/2023 until 10/12/2024OhioHealthComment on above:1 Occurrences starting 10/13/2023 until 10/12/2024 End: 31-00-4056Jyjjgea D, 25-hydroxy measurementVitamin D, Total, 25-OH Lab Routine Vitamin D deficiency 1 Occurrences starting 09/03/2023 until 09/02/2024 OhioHealthComment on above:1 Occurrences starting 09/03/2023 until 09/02/2024 End: 18-22-7615OE Chest PA and Lateral and AP lateral-decubitusXR Chest AP/PA and LAT Imaging Routine Subacute cough 1 Occurrences starting 10/13/2023 until 10/12/2024[facility] Work Phone: Comment on above:1 Occurrences starting 10/13/2023 until 10/12/2024 End: 55-43-7037GP Chest PA and Lateral and AP lateral-decubitusXR Chest AP/PA and LAT Imaging Routine Pleuritic chest pain 1 Occurrences starting 02/11/2024 until02/10/2025[facility] Work Phone: Comment on above:1 Occurrences starting 02/11/2024 until 02/10/2025 End: 52-07-6262FT Foot - right 3 ViewsXR Foot Right 3+ Views (Standard) Imaging Routine Right foot ulcer, with fat layer exposed (HCC) 1 Occurrences starting 09/22/2023 until 09/21/2024[facility] Work Phone: comment on above:1 Occurrences starting 09/22/2023 until 09/21/2024 End: 73-55-0140QQ Hand - left 3 ViewsXR Hand Left 3+ Views (Standard) Imaging Routine Left hand pain 1 Occurrences starting 02/23/2025 until 02/23/2026 OhioHealthComment on above:1 Occurrences starting 02/23/2025 until 02/23/2026 End: 60-75-6300IW Knee - bilateral 2 ViewsXR Knees Bilateral 2 Views Each (Standard) Imaging Routine Chronic pain of both knees 1 Occurrencesstarting 03/22/2024 until 03/22/2025OhioHealthComment on above:1 Occurrences starting 03/22/2024 until 03/22/2025 End: 32-50-5202OX Knee - bilateral 4 ViewsXR Knees Bilateral 4+ Views Each (Specify Views in Comments) Imaging Routine Pain in both knees, unspecified chronicity 1 Occurrences starting 08/18/2024 until 08/18/2025[facility] Work Phone: Comment on above:1 Occurrences starting 08/18/2024 until 08/18/2025 End: 81-46-3105MZ Knee Right 4+VWS (Note in Comments)XR Knee Right 4+VWS (Note in Comments) Imaging Routine Right knee pain, unspecified chronicity 1 Occ urrences starting 02/04/2023 until 02/05/2024[facility] Work Phone: Comment on above:1 Occurrences starting 02/04/2023 until 02/05/2024 End: 87-58-8584JN Lumbar spine 2 or 3 ViewsXR Lumbar Spine 2-3 Views (Standard) Imaging Routine Lumbar pain 1 Occurrences starting 08/09/2024 until 08/08/2025 [facility] Work Phone: Comment on above:1 Occurrences starting 08/09/2024 until 08/08/2025 End: 87-03-3498EK Lumbar spine Views W flexion and W extensionXR Lumbar Spine Standard with Flex/Ext 4+ Views Imaging Routine Lumbar stenosis with neurogenic claudication 1 Occurrences starting 02/23/2025 until 02/23/2026OhioHealthComment on above:1 Occurrences starting 02/23/2025 until 02/23/2026 End: 64-96-8731JA Sacrum and Coccyx 2 ViewsXR Sacrum And Coccyx 2+ Views Imaging Routine Fall, initial encounter 1 Occurrences starting 02/23/2025 until 02/23/2026[facility] Work Phone: Comment on above:1 Occurrences starting 02/23/2025 until 02/23/2026 Immunizations Immunization DateImmunizationNotesCare ZhtifhbjFpotahtd62-30-4196Ngitospc, trivalent, recombinant, injectable influenza vaccine, preservative Katie Pelayo PA-C Work Phone: [phone]rltpq60-73-4027knaleqyzn virus vaccine, unspecified formulationKiley Hanley CBBjacHcooko77-87-9344yzhbtrmhd, injectable, quadrivalent, preservative freeAma Wilcox GBJgsdQdipyg97-60-2195qxlbmmfca, seasonal, injectableStephanie Gaygood sam[facility]itan hospitalrt AYMVfegGmlbdt36-46-7712Quegxdvrljgu Conjugate 20-Valent (Prevnar 20)Ama Wilcox SEYwipJudbzk47-38-0638lbg vaccine ej5475-69,6mos up, (FLUZONE QUAD/AFLURIA QUAD) Vilma Pelayo PA-C Work Phone: [phone]jlaik99-98-5922pyo vacc ut6762-72 6mos up,PF, (FLUZONE QUAD/FLULAVAL QUAD/FLUARIX QUAD) 60 mcg (15 mcg x 4)/0.5 mLSyrg syringe Stephany Pelayo PA-C Work Phone: [phone]azrbc97-07-3850dozyamutncgu conj. 20-valent (PREVNAR 20) 0.5 mL vaccineStephany Pelayo PA-C Work Phone: [phone]liwhj83-29-7625yaevbjxae virus vaccine, unspecified formulationSherribud Adams REQHappFouvup40-55-9012ndnugxwwsfek conj. 20-valent (PREVNAR 20) vaccine 0.5 mLHarshad Rizzo MD Work Phone: [phone]grqxx76-78-9202Pepmsdndqwnk Conjugate 20-Valent (Prevnar 20)Mayesidra Ramirez IHKCpxzIvtxqk99-37-9243yjhxqgdfv, injectable, quadrivalent, preservative freeBrent Mellis DO Work Phone: [phone]ozjeq58-32-5670bnowzdrqu, seasonal, injectable sAhutosh MENARD [facility] CenterComment on above:Reason for Medication: Other (see comment)05-16-1551ylefcwa toxoid, reduced diphtheria toxoid, and acellular pertussis vaccine, Martha Veelz [facility]10-13-2021influenza virus vaccine, unspecified formulationBreanna Gu [facility]10-13-2021influenza, injectable, quadrivalent, preservative freeAlix Andrés STEVENS Work Phone: [phone]kXsqvzh71-73-1219shlfpwlmzayq polysaccharide vaccine, 23 valentBreanna Gu [phone]-BagcrUniversity Hospitals Health System Primary [facility] 09-587767-36-5528RNMVI-63 mRNA, Comelsa (Pfizer)POWER WASHER-C Laurent Franco Work Phone: [facility]09-25-2021SARS-CoV-2 (COVID-19) Ad26 vaccine, recombinantBreanna Gu [facility]07-11-2021Moderna SARS-CoV-2 VaccinationBrent Mellis DO Work Phone: [phone]dbuaq28-25-1165xlzxizpmb virus vaccine, unspecified formulationBreanna Gu [phone]-YtkekUniversity Hospitals Health System [facility] Comment on above:Result Comment: 2021-09-30: .Result Comment: 2021-09-30: .82-94-8071rhsbxfhen, injectable, quadrivalent, preservative freeDst. joseph hospitald BxmlOjljuSavpkt90-76-4949eymutxwyh virus vaccine, unspecified formulationBreanna Gu [phone]-RasmzUniversity Hospitals Health System [facility] 0190156-76-4959tnpzfycvr, injectable, quadrivalent, preservative freeJustin Lavonne NAVAL ENGINEER Work Phone: [phone]oocxp98-90-2130itzajhrso, seasonal, injectable Jocelyn Bowen MD Work Phone: [phone]hRhhrhi15-61-0137cecslgdti virus vaccine, unspecified formulationBreanna Gu [phone]-IydemUniversity Hospitals [facility] System [facility] 1635730-48-4348grujbdalu, injectable, quadrivalent, contains preservativeMalcolmx Andrés STEVENS Work Phone: [phone]nHmvxst06-27-0109oeabwdlil, injectable, quadrivalent, preservative freeBrent Mellis DO Work Phone: [phone]zdxzc07-81-7709btmjefykm virus vaccine, unspecified formulationDavid Tahoe Forest HospitalLinsey HARR[facility] COMMUNITY HOSPITALDNLPAG08-53-3668cmusbouiy virus vaccine, whole virusBrent Mellis DO Work Phone: [phone]ltypx25-74-1116bwgtnnule, injectable, quadrivalent, contains preservativeSergio Resendez MD Work Phone: [facility] CenterVrfvkdfrnv37-31-9227pqgvqsesy, wholeArianneadalgisa Herediaell [phone]-XyvxwUniversity Hospitals Health System [facility] 02764264-94-8521fsrcibiyupxt polysaccharide vaccine, 23 valentNo KfrqreUklpEzmxvw77-18-1112osxyswfov virus vaccine, unspecified formulationBreanna Gu [phone]-YescpUniversity Hospitals Health System [facility] 11466562-96-9056evyotvedu, seasonal, injectableAlix Andrés STEVENS Work Phone: [facility] Payers DatePayer CategoryPayerPolicy [id number] [facility] [id number] [id number] 2023Self-pay2021Medicaid (Managed Care)[id number] 2015Medicaid [employer] MEDICAID [employer] MEDICAID [id number] 2014-Present [id number] 1.2.840.080606.1.13.385.2.7.3.825997.315 2015Medicaid 1.2.840.250353.1.13.56.2.7.[id number] 2.840.1.801376.3.57[id number] 2.16840.1.435856.3.57[id number] 2.840.1.301354.3.579.2.13916-82-2503Xgkumug441509762 2.840.1.013284.3.579.2.49824-81-3820Xnifxzw414207210 2.0.1.804681.3.579.2.92326-60-8019Zuuvmpz437648059 2.0.1.966668.3.579.2.74640-99-4185Aoeawbn9987407 2.0.1.208762.3.579.2.16941-62-8643Cqkjtld0598242 2.0.1.015568.3.579.2.27819-97-8010Iccifbu7765369 2.0.1.140718.3.579.2.55417-37-7100Gbltyhj8810684 2.0.1.059954.3.579.2.55286-60-8616Ltutjfr2240334 2.0.1.556488.3.579.2.34234-08-2179Isskrjy5856450 2.0.1.564263.3.579.2.81660-56-0086Skoglao1613991 2.840.1.257981.3.579.2.45758-56-1826Cxnluso0668232 2.840.1.955815.3.579.2.26680-44-5037Nhxpwyk6093261 2.16.840.1.888600.3.579.2.22976-43-0075Qbpdirg1180822 2.16.840.1.253370.3.579.2.88868-81-9014Iwvqpil3975236 2.16.840.1.263144.3.579.2.30914-73-6965Vvtmrmf2402104 2.16840.1.286308.3.579.2.10854-41-6073Fdrhfdl3581444 2.16840.1.842653.3.579.2.43303-65-4106Pinpkfx6803030 2.16840.1.813141.3.579.2.37392-36-4032Gbgkuqh7902407 2.840.1.419362.3.579.2.58587-46-3311Tcwzkcj9081092 2.16840.1.985329.3.579.2.05213-42-0934Xbginlf4125670 2.840.1.624982.3.579.2.45181-27-7587Tvzghtw0107536 2.840.1.794783.3.579.2.38760-06-8081Epdboty7532275 2.840.1.863955.3.579.2.44993-24-9430Scpbhfe800582166 2.16840.1.373018.3.579.2.25434-33-0540Ugciksh719219239 2.16840.1.825380.3.579.2.15342-78-3578Dfrjztn459738518 2.16840.1.519947.3.579.2.03655-23-4048Eczfjee124836866 2.16840.1.711456.3.579.2.47543-16-4367Uupujtx698770504 2.16840.1.461673.3.579.2.74760-69-3716Bqnxucu467199462 2.16.840.1.642377.3.579.2.24054-23-0094Mmeodei622427845 2.840.1.725855.3.579.2.56313-12-4804Zqegceo587238483 2.840.1.008249.3.579.2.66303-30-6805Jnhmkun208679462 2..1.815382.3.579.2.70926-48-0972Zejhujm275554717 2.0.1.851447.3.579.2.61071-37-9516Fjjdniz696560376 2.0.1.337475.3.579.2.32752-89-3470Jhzhdft371039044 2..1.611801.3.579.2.79288-53-3789Ntxztlr319860632 2.0.1.108385.3.579.2.20186-21-7061Bealyvm078864559 2.0.1.201297.3.579.2.14258-22-2770Sregsov577331213 2.0.1.711057.3.579.2.73568-46-8924Qufrifo230877601 2.0.1.291159.3.579.2.66898-67-8024Jgbdbvr255527930 2.840.1.542291.3.579.2.48840-22-3517Ztdauuf537972658 2.840.1.658012.3.579.2.008742-71-1696Fvqjukr950871594 2.840.1.598875.3.579.2.336326-23-2244Urvkstg70415598 2.840.1.003932.3.579.2.67124-46-3002Mwybbsr49882553 2.840.1.535899.3.579.2.85033-41-8517Jdjxepf25909980 2.840.1.601169.3.579.2.048480-67-1151Hmzsnkb6863474 2.0.1.621441.3.579.2.549227-61-6450Ikutbnc75859749 2.0.1.325993.3.579.2.22820-43-5555Rimrelf69103835 2.0.1.338068.3.579.2.95133-40-9917Tzrqyjp064465349 2.0.1.901166.3.579.2.64183-23-4264Yvluqbp647080387 2..1.463331.3.579.2.85236-58-1052Mbdkcin211302215 2..1.576606.3.579.2.78907-64-7917Molguyk408365459 2.0.1.209447.3.579.2.31923-79-3786Eqhrgck870261704 2..1.617679.3.579.2.84999-24-7142Bemuxaz084582526 2.0.1.810595.3.579.2.11312-02-8144Bcqipaw044155941 2.840.1.200445.3.579.2.97345-67-3765Ggifout771290638 2.16.840.1.730025.3.579.2.53562-76-3221Xvssjvs591762777 2.16.840.1.652484.3.579.2.40109-84-6298Zkwfvko882901155 2.16.840.1.672115.3.579.2.53025-43-8408Ucgyxrx877719193 2.16.840.1.709997.3.579.2.37318-12-8048Nubrlyn529929355 2.16.840.1.716358.3.579.2.903 [id number] 2.16.840.1.507984.3.249.13 [id number] 2.16.840.1.614152.3.579.2.495Onmjphn73482112 2.16.840.1.482123.3.579.2.543 Social History DateTypeDetailFacilityStart: 06-26-2017 End: 11-35-8676Viqoviy smoking status NHISFormer smokerOhioHealth Work Phone: Start: 11-22-1996 End: 33-70-3023Gwxvwjs of tobacco useCigarette SmokerOhioHealth Work Phone: Start: 06-26-2017 End: 44-38-6430Vmklhlccxw smoked current (pack per day) - ReportedOhioHealth Work Phone: Start: 57-37-6799Ifv Assigned At BirthNot on file [facility] Work Phone: Start: 06-03-2020 End: 94-79-0434Oktutfs use and exposureNever usedOhioHealthStart: 06-03-2020 End: 05-65-4553Hvctban intakeCurrent non-drinker of alcohol (finding)[facility] Start: 11-28-2021 End: 25-44-8567Bnypkqbc to SARS-CoV-2 (event)Not sureOhioHealthStart: 08-06-2022 Tobacco smoking statusNeParkview Health Montpel[facility] Hospitaltart: 01-31-2023 End: 93-15-7716Lxx [facility] Other Start: 11-22-1996 End: 09-71-8543Ahnmfaj of tobacco useCurrent smokerBRIDGEWATER STATE HOSPITALElectroJet Phone: start: 83-80-2153Bheidfv use and exposureFormer smokeless tobacco userBANNER HEART [facility] [employer] Phone: TobaccoCurrent vaping or e-cigarette use Smokeless Tobacco Use:. VapingUniversity Hospitals Samaritan Medical CenterTobacco smoking statusNo Smoking Status EnteredSycamore Medical Centertart: 02-23-7914Hlj [facility] smoking status NHIS Tobacco smoking consumption unknownNORI HealthcareStart: 01-27-2023 End: 26-15-1244Lixvmha smoking status NHISSmokes tobacco dailyOhioHealthHow hard is it for you to pay for the very basics like food, housing, medical care, and heatingHardKettering Health Preble Work Phone: In the past 12 months, was there a time when you were not able to pay the mortgage or rent on time?YesOhioHealthStart: 06-03-2020 Gender identityIdentifies as female gender (finding)[facility]HealthStart: 06-03-2020 Sexual orientationHeterosexual (finding)OhioHealthHow hard is it for you to pay for the very basics like food, housing, medical care, and heatingSomewhat hard [facility](I/We) worried whether (my/our) food would run out before (I/we) got money to buy more.Sometimes trueOhioHealthStart: 03-92-1913Yeobvdd Comment recently restartedANALIDetwiler Memorial HospitalHistory of tobacco usePassive smoker OhioHealthStart: 20-55-6951Dzxbotx CommentVapeOhioHealthStart: 15-72-7731Flzqqbo CommentVaping 6 mg nicotineOhioHealthWithin the last year, have you been afraid of your partner or ex-partner?NoOhioHealth(I/We) worried whether (my/our) food would run out before (I/we) got money to buy more.Never trueOhioHealthStart: 64-92-8955Iytnfym smoking status NHISNever smoked tobaccoNORI HealthcareStart: 61-38-3699Oufmksxgv beverage intakeDeferNORI HealthcareStart: 55-59-278687 Per Day/1 Pack20 Per Day/1 PackAult[facility] Work Phone: Start: 50-45-8071J-CigarettesE-CigarettesAultman Alliance Community Hospital Work Phone: Start: 38-15-1696SfrNteZzjo [facility] Work Phone: Start: 10-32-2786OfPtRwubMetroHealth [facility] Work Phone: Start: 27-90-2386OkfzCsiaHkpw [facility] Work Phone: Start: 82-40-7724SpnsbvLytqxsMzfg [facility] Work Phone: Start: 56-12-3947OiavxficMbewmrgqTgys [facility] Work Phone: Start: 60-48-1383knyoiwaylqpzgxoyblpluvezHbfi [facility] Work Phone: Start: 12-26-2014 End: 53-75-2558BxiNahxza (finding)[facility] Campustart: 09-13-2024 End: 80-78-9287Umgmbleji beverage intakeEx-drinker (finding)[facility] SystemHow often to you have a drink containing alcohol?Monthly or lessProMedica Health SystemHow many standard drinks containing alcohol do you have on a typical day?1 or 2POur Lady of [facility] SystemHow often do you have 6 or more drinks on 1 occasion?NeverProPomerene Hospital SystemStart: 76-16-8009Kdjnawh CommentVapes nicotineProPomerene Hospital SystemStart: 60-09-6930Wesydyu CommentrarePOur [facility] SystemStart: 08-92-1454Pzrdhws CommentFormer Smoker 05/05/2019[facility] Medical Equipment Procedure CodeEquipment CodeEquipment Original TextEquipment IdentifierDates Phacoemulsification of cataract with intraocular lens implantationPosterior- chamber intraocular lens, pseudophakic ()[id number] FDAStart: 89-74-2481Debmntozv of central venous catheter (CVC) with subcutaneous port for chemotherapyVascular port/catheter()[id number] FDAStart: 09-22-2019 BiotronicTest Strips and Lancets, See Instructions, 1 box(es), 1, Test BID Freestyle Glucometer, [facility], SupplyStart: 23-78-8775Rjyj Strips and Lancets, See Instructions, 1 box(es), 1, Test BID Freestyle Glucometer, [facility], SupplyStart: 70-02-2108Evez Strips and Lancets, See Instructions, 1 box(es), 1, Test BID Freestyle Glucometer, [facility], SupplyStart: 58-32-2835Qqqk Strips and Lancets, See Instructions, 1 box(es), 1, Test BID Freestyle Glucometer, [facility], SupplyStart: 35-43-0180Giae Strips and Lancets, See Instructions, 1 box(es), 1, Test BID Freestyle Glucometer, [facility], Supply Start: 37-49-4531Dtcf Strips and Lancets, See Instructions, 1 box(es), 1, Test BID Freestyle Glucometer, [facility], SupplyStart: 68-22-3787Kbps Strips and Lancets, See Instructions, 1 box(es), 1, Test BID Freestyle Glucometer, [facility], SupplyStart: 40-75-6830Junb Strips and Lancets, See Instructions, 1 box(es), 1, Test BID Freestyle Glucometer, [facility], SupplyStart: 87-68-8771Bhey Strips and Lancets, See Instructions, 1 box(es), 1, Test BID Freestyle Glucometer, [facility], SupplyStart: [id number], [id number], [id number], [id number], 906041251, [id number], [id number]: 10-12-2013 End: 23-16-6487Uimw Strips and Lancets, See Instructions, 1 box(es), 1, Test BID Freestyle Glucometer, [facility], SupplyStart: 73-54-5732Rdvq Strips and Lancets, See Instructions, 1 box(es), 1, Test BID Freestyle Glucometer, [facility], SupplyStart: 60-70-2023Gocz Strips and Lancets, See Instructions, 1 box(es), 1, Test BID Freestyle Glucometer, [facility], SupplyStart: 82-19-8441Fhmh Strips and Lancets, See Instructions, 1 box(es), 1, Test BID Freestyle Glucometer, [facility], SupplyStart: 07-08-3018Uhje Strips and Lancets, See Instructions, 1 box(es), 1, Test BID Freestyle Glucometer, [facility], Supply Start: 69-24-5654Plee Strips and Lancets, See Instructions, 1 box(es), 1, Test BID Freestyle Glucometer, [facility], SupplyStart: 29-69-9747Dbhn Strips and Lancets, See Instructions, 1 box(es), 1, Test BID Freestyle Glucometer, [facility], SupplyStart: 45-32-3260Awsg Strips and Lancets, See Instructions, 1 box(es), 1, Test BID Freestyle Glucometer, [facility], SupplyStart: 22-75-3497Iocj Pace Standard Mdt 5076 45cm - S [id number]_dgwYzpnx: 13-12-7229Hklavuu pacemaker, device (physical object) ([id number])Pacer Dual Mri Advisa Chamber - [id number]_qlzHxvxy: 86-78-9550Xti BEFORE MEALS and at BEDTIME to test Blood Sugar.[id number]: 91-92-8261Xgb BEFORE MEALS and at BEDTIMEto test Blood [id number]: 72-62-2392Ljtihrzeqf Novus Mri Felicia 5076-03/30/[id number]_impStart: 03-30-2017(Not Safe)Mariola Mri Xt Us_[id number]_impStart: 92-63-5882Awvnhdu on above:Description: NOT SAFE DUE TO ABANDONED CAPPED LEAD PER VAN [employer]. Dez Ramsey Secure S 6935m-04/06/[id number]_impStart: 04-06-2019 Goals DatePatient GoalDesired Activity/StatePersonal health goalPersonal health goal Comment on above: Evaluation of progress towards goal[facility] daughter, friend supportPersonal health goalComment on above: Evaluation of progress towards goal: home with [facility] Functional Status EdboRrcusefzqnVcizvwGvqzelqw13-00-1131Gwvev score [AUDIT-C]1 12/03/2024 9:40 AM EDT NunesFunmilayo songCarilion [facility]05-15-2023Functional StatusN/A [facility]04-21-2023Functional StatusN/[facility]04-21-2023Functional StatusUniversity Hospitals [facility]03-31-2023 Functional statusPatient at [facility] Work Phone: 1(636) 412-982703568950-38-9894Vhlrdctbob StatusN/[facility]01-09-2023Functional StatusN/[facility]12-22-2022 Functional StatusNoUniversity Hospitals [facility]11-14-2022Functional StatusN/A [facility]11-13-2022Functional StatusUniversity Hospitals Sam[facility]10-06-2022Functional StatusN/[facility]09-30-2022 Functional StatusN/[facility]09-02-2022Functional StatusN/A [facility]08-18-2022N/[facility] 09-70-2549IeqyqwUniversity Hospitals [facility]aritan Medical Center07-21-2022Functional StatusN/[facility] [id number] StatusN/[facility]06-13-2022Functional StatusN/[facility]06-13-2022 Functional StatusUniversity Hospitals [facility]11-06-2017Are you deaf, or do you have serious difficulty hearingNo 03/30/2017 5:00 PM Sharla Sandoval RN [facility]11-06-2017Are you blind, or do you have serious difficulty seeing, even when wearing glassesNo 03/30/2017 5:00 PM Sharla Sandoval RN [facility]11-06-2017Do you have serious difficulty walking or climbing stairsYes 03/30/2017 5:00 PM Sharla Sandoval RN [facility]11-06-2017Do you have difficulty dressing or bathingNo 03/30/2017 5:00 PM Sharla Sandoval RN [facility]11-06-2017Because of a physical, mental, or emotional condition, do you have difficulty doing errands alone such as visiting a physician's office or shoppingYes 03/30/2017 5:00 PM Sharla Sandoval RN [facility] Mental Status HatySubiisrbouUecrisSrstcvku54-69-4947Pcbnxptjc functionAppropriate;[facility] Work Phone: 1(193) 655-759403889072-75-4348Vuhtemsmw functionCognitive Status [facility] Work Phone: 1(664) 311-356011429776-24-5720Kvdhyzh of a physical, mental, or emotional condition, do you have serious difficulty concentrating, remembering, or making decisionsNo 03/30/2017 5:00 PM Sharla Sandoval RN [facility]OSS[facility] Clinical Notes 06-14-2021 to 03-21-2025 Note Date & OpjzQdxjXeyxtbiq86-54-6445 Telephone encounter Note* Telephone Encounter - Olivia Almonte - 03/21/2025 7:44 AM EDT Shon 02/23/25 QuioQznqop00-87-7536 Miscellaneous Notes* Telephone Encounter - Olivia Almonte - 03/21/2025 7:44 AM EDT Shon 02/23/25 documented in this jfwlmdfghUqmrTkdeud29-32-0934 Note* Addendum Note - Herlinda Bowling RN - 03/16/2025 9:51 AM EDTAddended by: JOSEPHINE BOWLING on: 03/16/2025 09:51 AM Modules accepted: Orders LyosHrolas32-81-2808 Miscellaneous Notes* Addendum Note - Herlinda Bowling RN - 03/16/2025 9:51 AM EDTAddended by: JOSEPHINE BOWLING on: 03/16/2025 09:51 AM Modules accepted: Orders documented in this rxfjdnrycBoujTdfkqp51-42-6225 Telephone encounter Note* Telephone Encounter - Audrey Valentino LPN - 03/15/2025 9:36 AM EDT I TRIED TO CALL HER, HER PHONE IS DISCONNECTED THE INSURANCE DENIED HER PA FOR OZEMPIC I WILL ASK THE DOCTOR FOR TRULICTY [facility] CenterFakwuuvcpm97-29-8971 Miscellaneous Notes* Telephone Encounter - Audrey Valentino LPN - 03/15/2025 9:36 AM EDT I TRIED TO CALL HER, HER PHONE IS DISCONNECTED THE INSURANCE DENIED HER PA FOR OZEMPIC I WILL ASK THE DOCTOR FOR AYLATY * Telephone Encounter - Ambrocio Avril - 03/14/2025 1:41 PM EDT Pa needed for ozempic. Please and thank you! documented in this encounterCameron Regional Medical CenterNhqiqmraje14-44-0255 Telephone encounter Note* Telephone Encounter - Ambrocio Avril - 03/14/2025 1:41 PM EDT Pa needed for ozempic. Please and thank you! [facility] CenterYkpdejasvb17-20-7314 NoteADDIE JEAN BAPTISTE [facility] [id number] 1975 DATE MIHAI ELIZALDE CNP [address] [place] [address] REFERRING PHYSICIAN MIHAI ELIZALDE CNP ATTENDING PHYSICIAN RAUL KUMAR MD PRIMARY CARE PHYSICIAN PROVIDER NOT IN SYSTEM ADMITTING PHYSICIAN BEATRIZ GRESHAM Dr., I saw Ms. Jean Baptiste in the office today with a chief complaint of chronic low back pain and right knee pain and swelling. This has been going on for many years intermittently. She has been through many rounds of conservative measures. PAST MEDICAL AND SURGICAL HISTORY Significant for bipolar disorder, seizures, stroke, elevated BMI, chronic kidney disease. PHYSICAL EXAMINATION Shows right knee extensor and flexor weakness at 3/5 mainly due to pain. She has right dorsi and plantar flexor weakness at 3/5 and a positive right straight leg raising sign, but again these seem to be mostly inhibited by pain. The rest of her neurologic exam is intact, and her left lower extremity strength is normal. IMAGING She did have x-rays that show a disk degeneration at L4-5 and L5-S1. She has no current MRI scanning. DIAGNOSES Chronic low back pain, right knee pain, lumbar disk degeneration, elevated body mass index. TREATMENT OPTIONS AND PLAN Ms. Jean Baptiste needs a new MRI scan of her lumbar spine and right knee. I am going to get that set up for her as soon as possible. I will keep you posted on the results and the plan afterwards. Thank you very much. Sincerely, RAUL KUMAR MD D 03/08/2025 11:37 [id number] T 03/08/2025 17:42 CLB/MODL AUTHENTICATED BY RAUL KUMAR, ON 03/14/2025 05:58:40[facility] Btetfivcix73-61-5503 History of Present illness Narrative* Raul Kumar MD - 03/08/2025 9:42 PM EDT ADDIE JEAN BAPTISTE [facility] [id number] 1975 DATE MIHAI ELIZALDE CNP [address] [place] [address] REFERRING PHYSICIAN MIHAI ELIZALDE CNP ATTENDING PHYSICIAN RAUL KUMAR MD PRIMARY CARE PHYSICIAN PROVIDER NOT IN SYSTEM ADMITTING PHYSICIAN BEATRIZ GRESHAM Dr., I saw Ms. Jean Baptiste in the office today with a chief complaint of chronic low back pain and right knee pain and swelling. This has been going on for many years intermittently. She has been through many rounds of conservative measures. PAST MEDICAL AND SURGICAL HISTORY Significant for bipolar disorder, seizures, stroke, elevated BMI, chronic kidney disease. PHYSICAL EXAMINATION Shows right knee extensor and flexor weakness at 3/5 mainly due to pain. She has right dorsi and plantar flexor weakness at 3/5 and a positive right straight leg raising sign, but again these seem ania mostly inhibited by pain. The rest of her neurologic exam is intact, and her left lower extremity strength is normal. IMAGING She did have x-rays that show a disk degeneration at L4-5 and L5-S1. She has no current MRI scanning. DIAGNOSES Chronic low back pain, right knee pain, lumbar disk degeneration, elevated body mass index. TREATMENT OPTIONS AND PLAN Ms. Jean Baptiste needs a new MRI scan of her lumbar spine and right knee. I am going to get that set up for her as soon as possible. I will keep you posted on the results and the plan afterwards. Thank you very much. Sincerely, RAUL KUMAR MD D 03/08/2025 11:37 [id number] T 03/08/2025 17:42 CLB/MODL * Raul Kumar MD - 03/08/2025 11:33 AM EDT See Dictation. documented in this [id number] NoteSee Dictation. AUTHENTICATED BY RAUL KUMAR, ON 03/08/2025 11:40:[address] [place], [place] 5084910-07-2025 History of Present illness Narrative* Jay Peralta MA - 02/28/2025 2:29 PM EDT Signed order, office note and facesheet faxed to [employer] at [phone] * Keely Aguero RN - 02/28/2025 11:05 AM EDT Pt called to check on scooter prescription. RN notified pt that we are waiting for order to be signed today. If office needs anything further, we will reach out to pt * Jay Peralta MA - 02/24/2025 3:30 PM EDT Order for power scooter printed, mihai needs to sign then I soke with pt I will be sending to [facility]. She stated she had an eval 4 years ago I advised she may need another. She stated she would be ok with coming to [place] to do that if she ended up having to documented in this [id number] History of Present illness Narrative* Keely Aguero RN - 02/28/2025 11:05 AM EDT Pt called to check on scooter prescription. RN notified pt that we are waiting for order to be signed today. If office needs anything further, we will reach out to pt * Jay Peralta MA - 02/24/2025 3:30 PM EDT Order for power scooter printed, mihai needs to sign then I soke with pt I will be sending to [facility]. She stated she had an eval 4 years ago I advised she may need another. She stated she would be ok with coming to [place] to do that if she ended up having to documented in this [id number] History of Present illness Narrative* Jay Peralta MA - 02/24/2025 3:30 PM EDT Order for power scooter printed, mihai needs to sign then I soke with pt I will be sending to [facility]. She stated she had an eval 4 years ago I advised she may need another. She stated she would be ok with coming to [place] to do that if she ended up having to documented in this [id number] Instructions* Patient Instructions* Mihai Elizalde CNP - 02/23/2025 2:14 PM EDT Order XR Sacrum and Coccyx Order XR Lumbar Spine Order XR Left Hand Referral sent to Neurosurgery, Dr Kumar Referral sent to Physical Therapy and Occupational Therapy - external Increase Percocet to 7.5-325 one tablet up to three times a day Order power scooter from [employer] Complete urine drug screen Please call Refill Line or send MyChart Refill Request to Pain Management office 7 days before eachfill date, every month. Follow up with Dr. Velez in 3 months documented in this [id number] NoteOhSt. [facility] Interventional Pain [facility] Office [...] referral, TENS unit, and follow-up with new translator interpreter. -Addie has scheduled an appointment with a new translator interpreter, Dr. Sun, on the , as she [...] screen Please call Refill Line or send TripTouchhart Refill Request to Pain Management office 7 days before each fill date, every month. Order physical therapy. Will complete MRI lumbar spine without contrast after physical therapy is completed Reorder TENS unit I am managing complex condition(s) serving as the focal point for the patient's care for consistency and co (more content not included)...[facility] Pzjdrppqwz63-23-7383 History of Present illness Narrative* Mihai Elizalde, BEATRIZ - 02/23/2025 1:48 PM EDT [facility] Interventional Pain Management Office Note [...] pain (8-10/10), radiating from waist to feet withburning sensations, recent falls, and decreased mobility. - She was taking Percocet BID, Lyrica 75mg BID, and tizanidine. - Plan includes increasing Percocet to TID with 2-week supply, continuing Lyrica and tizanidine, ordering lumbar spine x-ray, physical therapy referral, TENS unit, and follow-up with new translator interpreter. -Addie has scheduled an appointment with a new translator interpreter, Dr. Sun, on the , as she [...] to the medial malleolus consistent with sequela ofremote trauma. 4. There is a 5 mm [...] and iv dye, Fentanyl, Ibuprofen, Latex, Linezolid, Lorazepam,Nsaids (non-steroidal anti-inflammatory drug), Vancomycin, and Propoxyphene Plan [...] to Pain Management office 7 days before eachfill date, every month. Order physical therapy. Will [...] 04. She had a fall in the senior living- had a bruise in her lumbar area [...] but is inadequately managing her chronic lumbar spinalstenosis pain. She is requesting a continuation of [...] ORTHOPEDIC SURGERY left foot surgery PACEMAKER INSERTION PA AMPUTATION TOE METATARSOPHALANGEAL JOINT Left 04/01/2024 Procedure: AMPUTATION LEFT HALLUX; Surgeon: Shameka Castillo DPM; Location: [facility] Main OR; Service: Podiatry Social History Social History[1] Family History family history includes Diabetes in her father; Diabetes type II in her father; Hypertension in herfather; Seizures in her mother. Physical Exam PACU Vitals 02/23/25 1351 BP: (!) 133/100 Pulse: 92 Body mass index is 51.21 kg/m . Wt Readings from Last 3 Encounters: 02/23/25 127 kg (280 lb) 09/18/24 127 kg (280 lb) 12/30/24 127 kg (280 lb) Temp Readings from [...] total) by mouth daily . Dexcom G6 Wide Area Network Engineer Misc Use as directed for continuous glucose [...] mg total) by mouth 2 (two) times aday . levothyroxine (SYNTHROID, LEVOTHROID) 75 MCG tablet [...] mg total) by mouth 2 (two) times aday . metoprolol succinate (TOPROL-XL) 50 MG 24 [...] (one) tablet by mouth 2 (two) times aday as needed for pain . oxyCODONE-acetaminophen (PERCOCET) 5-325 mg per tablet Take 1 (one) tablet by mouth 3 (three) timesa day as needed for pain (Days supply [...] FOR 7 DAYS AND AFTER IF TOLERATED FORPSYCHOSIS timolol (TIMOPTIC) 0.5 % ophthalmic solution Administer 1 (one) drop into the left eye daily . tiZANidine (Zanaflex) 4 MG tablet Take 2 tabs p.o. nightly . traZODone (DESYREL) 100 MG tablet Take 1 (one) tablet (100 mg total) by mouth nightly as needed forsleep . zinc oxide-white petrolatum 17-57 % Pste [...] head. ADRENAL GLANDS: Normal. KIDNEYS AND URETERS: Xdam-wy-nflgbexd right renal cortical scarring. Left kidney appears [...] chronic appearing anterior wedging at T12 which isstable. Vertebral body heights and alignment otherwise appear normal. There is minimal disc space narrowing and osteophytic spurring at the levels in the lower thoracic spine consistent with degenerative changes. The posterior elements are intact. There is no acute fracture or subluxation. There rbbdsa-ir-jxhrdxre neural foraminal stenosis at a few levels in the lower thoracic spine but there isno significant canal stenosis. Lumbar spine reconstructions: There is minimal stable chronic anterior wedging at L1 and L2. Vertebral body heights and alignment otherwise appear normal. There is mild disc space narrowing at L5-S1.There is mild multilevel osteophytic spurring consistent with degenerative changes. Posterior elements are intact. There is no acute fracture or subluxation. At L3-L4 there is a disc bulge with mild canal stenosis and mild bilateral neural foraminal stenosis. At L4-5 there is a central disc protrusion with moderate canal stenosis and moderate bilateral neural foraminal stenosis. At L5-S1 there sri disc bulge with mild canal stenosis and dhaa-fc-qjhhooqu bilateral neural foraminal stenosis. IMPRESSION: 1. No [...] thoracic or lumbar spine. There are degenerative changesas described above. ASSESSMENT/PLAN Encounter Diagnoses Name Primary? [...] times a day Order power scooter from [employer] Complete urine drug screen Please call Refill Line or send TripTouchhart Refill Request to Pain Management office 7 days before eachfill date, every month. Follow up with Dr. [...] OPIOIDS Mihai Elizalde CNP Interventional Pain Management [facility] [1] Social History Tobacco [...] last use thursday night documented in this [id number] Evaluation note* Diagnosis Onset Date Resolution Status Admit Date BMI 50.0-59.9, adult acuteSept2024 9:44amBreast cancer screening by mammogramacute February 20, 2025 9:44amEssential hypertensionacuteSept2024 9:44amMixed hyperlipidemiaacuteSept2024 9:44amMorbid obesity due to excess caloriesacutept2024 9:44amNeurogenic bladder as late effect of cerebrovascular accident (CVA)acutept2024 9:44amNicotine use disorderacuteSept2024 9:44amNoncompliance with medicationsacute February 20, 2025 9:44amPeripheral vascular diseaseacuteSept2024 9:44amRight knee painacuteSept2024 9:44amType 2 diabetes mellitus with circulatory disorder, with long-term currentacuteSeptember 2024 9:44amBipolar 1 disorderchronicSeptember 2024 9:44amBMI 50.0-59.9, adult acuteNov2024 10:44amEssential hypertensionacuteApril 04, 2025 10:44amMixed hyperlipidemiaacuteApril 04, 2025 10:44amMorbid obesity due to excess caloriesacuteApril 04, 2025 10:44amNeurogenic bladder as late effect of cerebrovascular accident (CVA)acuteApril 04, 2025 10:44amNicotine use disorderacuteApril 04, 2025 10:44amNoncompliance with medicationsacute April 04, 2025 10:44amRight knee painacuteApril 04, 2025 10:44amType 2 diabetes mellitus with circulatory disorder, with long-term currentacute April 04, 2025 10:44am [facility] Work Phone: 1([phone]) 550-274909-11-2025 History of Present illness Narrative* Sergio Resendez MD - 02/02/2025 10:50 AM EDT Addie Jean Baptiste is a 49 y.o. [...] 76, highest 321, average 1.4, and average 146.At 12 a.m. 2.55, 6 a.m, 2.7, ICR [...] times daily PRN Blood Glucose Monitoring Suppl ([employer] ResourcesTouch Verio Flex System) w/Device kit No dose, route, or frequency recorded. chlorthalidone (Hygroton) 25 MG tablet Continuous Glucose Sensor (Dexcom G6 Sensor) misc USE DIRECTED FOR CONTINUOUS GLUCOSE MONITORING, CHANGE EVERY 10 DAYS Continuous Glucose Sensor (Dexcom G7 Sensor) misc 1 Bar, Does not apply, Every 10 days Emgality 120 MG/ML auto-injector ergocalciferol (Vitamin D2) 1.25 MG (13724 UT) capsule 1 capsule, Weekly Florastor 250 [...] adjustment of insulin pump Heart disease Hypertension terminal operator (current) use of insulin (HCC) Obesity, unspecified [...] recent change. No heart burn, liver or gallbladderdisease; no rectal bleeding or pain : No urinary pain , frequency or odor. MUSCULOSKELETAL: No muscle pain or cramps; no extremity weakness.No joint pain, stiffness, swellingor limitation of movement NEUROLOGY: No H/O seizures, [...] 2 MG/1.5ML solution pen-injector; Inject 0.5 mg underthe skin 1 (one) time per week - [...] 8 am 2.8, 6 pm 3:00 p.m, 10:00p.m. 2.2, insulin carb ratio 1:4, insulin sensitivity [...] serious comorbidity and body mass index (BMI) of45.0 to 49.9 in adult ([facility]) Hyperlipemia, mixed Vitamin D deficiency Primary hypertension Encounter for fitting or adjustment of insulin pump Follow up in about 3 months (around 05/04/2025). documented in this encounterCameron Regional Medical CenterPsrxfummtn17-80-4670 Telephone encounter Note* Telephone Encounter - Olivia Almonte - 12/22/2024 8:27 AM EDT Attempted to inform pt that meds were sent to [facility] full XxxlMfitqa62-43-3210 Miscellaneous Notes* Telephone Encounter - Olivia Almonte - 12/22/2024 [...] Olivia Almonte - 12/19/2024 9:34 AM EDT Shon 09/23/24 documented in this [id number] Telephone encounter Note* Telephone Encounter - Olivia Almonte - 12/20/2024 4:31 PM EDT Pt had to cancel appt for tomorrow through her insurance and they told her there was nobody in the area that could do it. Asking to pleAse resfill her Rx. Pt rs to 01/05/25 [id number] Telephone encounter Note* Telephone Encounter - Olivia Almonte - 12/19/2024 9:34 AM EDT Shon 09/23/24 [id number] Miscellaneous Notes* Telephone Encounter - Addie Chavira MA - 12/06/2024 9:51 AM EDT [facility] [place] [address] [facility] [address] New referral received by [facility] for adherence & access, diabetes, and weight management. Patient was contacted to schedule appointment at [facility] ([facility]). This was my first attempt to [...] provider: Elda Aguirre MD documented in this encounterUK Healthcare07-15-2025 Telephone encounter Note* Telephone Encounter - Addie Chavira MA - 12/06/2024 9:51 AM EDT [facility] MEDICATION MANAGEMENT Duane [place] [address] [facility] [address] New referral received by [facility] for adherence & access, diabetes, and weight management. Patient was contacted to schedule appointment at [facility] ([facility]). This was my first attempt to [...] to spreadsheet. Referring provider: Elda Aguirre MD [facility]07-14-2025 Progress note* Discharge Planning Note - Rick Thomas - 12/05/2024 3:28 PM EDT DISCHARGE PLANNING NOTE CRF/Med Rec sent to. [address] (P# ; F# ); [place] (P# [phone] ; F# [phone]) [facility]07-14-2025 Miscellaneous Notes* Discharge Planning Note - Rick Thomas - 12/05/2024 3:28 PM EDT DISCHARGE PLANNING NOTE CRF/Med Rec sent to. [address] (P# ; F# ); [place] (P# [phone] ; F# [phone]) * Discharge Planning Note - Jaky Sauceda - 12/05/2024 12:14 PM EDT DISCHARGE PLANNING NOTE Referral to [facility]- P# ; F# , [address] (P# ; F# ) , [facility] (P# ; F# ) * PT/OT/LEAN MANUFACTURING ENGINEER - Jesús Singh, PT - 12/05/2024 12:01 PM EDT Physical Therapy Evaluation Discharge Recommendations for Safe Patient Transition Discharge Recommendations: Post acute - moderate Post Acute Moderate Rehab Needs: Recommend moderate intensity rehab, Tolerate 1- 2 hrs of therapy 3-5 days/wk, Subacute or [...] brain (-); Blood sugar 640- transferred to [facility] Neuro- MRI brain; B vision loss likely 2/2 hyperglycemic refraction error H- bipolar Dx- diabetic retinopathy, mild-moderate diabetic macular edema R eye Past Medical History: Diagnosis Date Arrhythmia Arthritis Bipolar disorder ([facility]) Bronchitis, chronic ([facility]) Chronic constipation Chronic kidney disease Depression Diabetes mellitus type 2, controlled ([facility]) 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 Prior Function Lives With: Daughter Other: [...] Patient will perform bed mobility with Modified [place] Dates: Start: 12/05/24 Expected End: 12/22/24 Description: [...] vision Active Problems: Hyperosmolar hyperglycemic state (HHS) ([facility]) SOLO (acute kidney injury) HHS (hypothenar hammer syndrome) * Discharge Planning Note - Crista Leung RN - 12/05/2024 11:49 AM EDT Ongoing Assessment for Discharge Needs Reviewed discharge [...] family/friend/caregiver involved in their discharge planning? No, thepatient does not wish to have family/friend/caregiver involved in their discharge planning Discharge Disposition Home with home health services Patient choice offered Yes List Provided Yes CarePort List Provided Home Care Per RN during discharge transition rounds, barriers to discharge are: PT/OT evals, needs to follow up with endocinologist, and new PCP appt was made by JUANA. . Discharge Plan: Home with Home care. CN met with patient. Patient provided choices for Home care CN tasked to send referrals to [address] [facility] home care. Patient stated she lives on the first floor of her daughter's home off the dining room and her son lives in the basement. Slubber Tender will continue to follow for any discharge needs. - Crista Leung RN 12/05/24 11:52 AM Addendum: PT/OT rec SNF. CN met with patient and discussed therapy recommendation. Patient stated NO to SNF option. [address] is possibly accepting for home care. Waiting on final decision from [address] Patient insists she lives on the first floor and her son is the one who lives In the basement bedroom. CN tried to call daughter. - Crista Leung RN 12/05/24 1:04 PM Blood sugars have stablized and patient will be discharged today.. CN met with patient to discuss that [address] home care could accept referral and patient stated she will have to Call Medicaid provider for transport. CN stayed to verify with Medicaid transport provider that the patient is discharging from [facility] going home, cab transport arranged for 4pm at enterance A. Nurse and attending physician notified . DC CRF completed and [facility] tasked to send DC orders to [address] Home care. - Crista Leung RN 12/05/24 3:35 PM * PT/OT/LEAN MANUFACTURING ENGINEER - Tamiko JuarezforeignSOBEIDAR/Thuy - 12/05/2024 11:41 AM EDT Occupational Therapy Evaluation Discharge Recommendations for Safe Patient Transition Discharge Recommendations: Post acute - moderate Post Acute Moderate Rehab Needs: Recommend moderate intensity rehab, Tolerate 1- 2 hrs of therapy 3-5 days/wk, Subacute or [...] None Scoring Daily Activity Raw Score: 16 [facility] G Code Modifier: CK Therapy Plan Need for skilled Occupational Therapy to address deficits in ADL independence and functional mobility due to a status decline resulting from B vision loss Pt admitted 12/02 from OSH with sudden onset vision loss B eyes. EMS witnessed seizure x5 seconds CT brain (-); Blood sugar 640- transferred to [facility] Neuro- MRI brain; B vision loss likely 2/2 hyperglycemic refraction error PMH- bipolar Dx- diabetic retinopathy, mild-moderate diabetic macular edema R eye Past Medical History: Diagnosis Date Arrhythmia Arthritis Bipolar disorder ([facility]) Bronchitis, chronic ([facility]) Chronic constipation Chronic kidney disease Depression Diabetes mellitus type 2, controlled ([facility]) 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 Whenasked if pt lives in a house, she [...] B LE's for sit to supine. Pt declinedto sit in chair. Pt in bed at end of session with call light in reach Transfers Sit to Stand: Min assist Stand to Sit: Min assist Other: On initial transfer from bed, pt required min assist but was dizzy and sat back down on bed.On second transfers, min assist again and pt [...] vision Active Problems: Hyperosmolar hyperglycemic state (HHS) ([facility]) SOLO (acute kidney injury) HHS (hypothenar hammer syndrome) * Plan of Care - Rafael Chavira RN - 12/05/2024 11:22 AM EDT Problem: Pain Goal: Patient goal is pain score less than 4, able to rest, and participant in treatment plan as appropriate Description: INTERVENTIONS: 1. Encourage patient or legal solar sales representative and assessor to report early pain and ask for [...] per policy 9. Teach patient or legal solar sales representative and assessor interventions for comforting Outcome: Progressing Note: Evaluation [...] at the bedside 7. Instruct patient/ patient solar sales representative and assessor about use of safety devices 8. Include patient/ patient solar sales representative and assessor in decisions related to safety Outcome: Progressing Note: Evaluation of progress towards goal: Patient remains injury-free amid hospitalization due to proper safety precautions. Rafael Chavira RN * Plan of Care - Ellen Valera RN - 12/05/2024 3:51 AM EDT Problem: Glucose Imbalance Goal: Clinical indication of [...] Score of =/> 25 or indicated by [facility] Assessment Goal: Patient should be free from fall Description: Interventions: 1. [place] to environment 2. Hourly rounds addressing the [...] non-skid footwear 11. Teach patient and patient solar sales representative and assessor to maintain environment for safety and engage [...] (cane, walker) within reach 19. Request patient solar sales representative and assessor bring adaptive equipment/mobility aids from home or obtain and provide as needed 20. Consult pharmacy regarding effects of med's affecting mobility, cognition, and alternatives 21. Obtain physician order for PT if risk factors associated with mobility are present 22. Obtain physician order for OT as appropriate 23. Utilize diversional activities 24. Educate patient and patient solar sales representative and assessor how to maintain a safe environment during visitationtimes (notify nurse prior to leaving bedside) 25. Consider appropriateness of medical or non-medical technologist chemistry 26. Set up voiding schedule as appropriate (every 2 hours) Outcome: Progressing Note: Evaluation of progress towards goal: Bed locked and lowered to lowest setting. Call greco within reach, personal items within reach. Problem: Pain Goal: Patient goal is pain score less than 4, able to rest, and participant in treatment plan as appropriate Description: INTERVENTIONS: 1. Encourage patient or legal solar sales representative and assessor to report early pain and ask for [...] per policy 9. Teach patient or legal solar sales representative and assessor interventions for comforting Outcome: Progressing Note: Evaluation [...] at the bedside 7. Instruct patient/ patient solar sales representative and assessor about use of safety devices 8. Include patient/ patient solar sales representative and assessor in decisions related to safety Outcome: Progressing Note: Evaluation of progress towards goal: Medication administered using 5 rights; dual identifiersused with each patient interaction, and fall risks [...] hygiene technique. 7. Identify and instruct patient/patient solar sales representative and assessor in use of appropriate isolation precautionsfor identified infection/symptoms. 8. Provide and discuss with patient/patient solar sales representative and assessor on educational MDRO sheet. 9. Encourage and monitor nutritional status daily and consult construction electrician if indicated. 10. Implement neutropenic guidelines as needed. Outcome: Progressing Note: Evaluation of progress towards goal: Patient has no current signs and symptoms of infection; monitoring vitals and labs Problem: Knowledge Deficit Goal: Patient/patient solar sales representative and assessor demonstrates understanding of disease process, treatment plan,medications, and discharge instructions Description: INTERVENTIONS 1. Complete learning assessment and assess knowledge base 2. Provide teaching at level of understanding 3. Provide teaching via preferred learning method(s) Outcome: Progressing Note: Evaluation of progress towards goal: Patient verbalizes understanding of treatment plan, medications, and discharge plans. * Discharge Planning Note - Rick Thomas - 12/04/2024 3:50 PM EDT DISCHARGE PLANNING NOTE Dec 07, 2024 10:00 AM (Arrive by 9:45 AM) New Patient with Lindsay Johnson, ARCHEOLOGY FACULTY MEMBER-NAVAL ENGINEER [facility] ([facility]) [address] [place] [address] [address] [facility] [address] * Discharge Planning Note - Ezra Will RN - 12/04/2024 12:42 PM EDT Images from the original note [...] and we didn't have money to get more.Never True Hunger Screening Complete? Yes Pt. Eligible [...] family/friend/caregiver involved in their discharge planning? No, thepatient does not wish to have family/friend/caregiver involved in their discharge planning Discharge Disposition Home with home health services Patient choice offered Yes List Provided Yes [facility]Port List Provided Home Care Armored Truck Driver met with patient, introduced self, and explained role. Patient educated on safe discharge plan. 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 . Caregiver is willing both physically [...] and resources provided. Discharge plan home with [facility]. PCP: No primary care provider on file. Pharmacy:[facility] PCP and pharmacy confirmed with patient. CN offered to assist with follow up appointment arrangements; patient agreeable, tasked appointment to [facility]. No primary care provider on file. added to Follow Up Providers for Summary of Care communication. Per patient self-report: Drug use: denies Smokinppd ETOH Use: denies Current discharge plan is: Home with daughter support and home care services. [facility]ed [facility] to assist with finding [...] of progress towards goal: [facility] and daughter, friend support Will continue to follow as plan of care develops. CN discussed benefits and importance of medication compliance and follow ups. Please feel free to reach out for any discharge planning questions. - Ezra Will RN 12/04/24 12:42 PM * Plan of Care - Uzma Mcpherson RN - 12/04/2024 7:06 AM EDT Problem: Glucose Imbalance Goal: Clinical indication of glucose balance is achieved Description: Patient's goal is: INTERVENTIONS 1. Monitor blood glucose levels as ordered 2. Administer medications as ordered 3. Notify physician of ineffective treatment plan Outcome: Progressing Note: Evaluation of progress towards goal: pt off insulin drip, continue education and s/s coverageblood glucose improved but still elevated * Plan of Care - Shawna Carrington RN - 12/04/2024 12:44 AM EDT Problem: Glucose Imbalance Goal: Clinical indication of [...] discharge planning process 5. Communicate referral to primary special educator as appropriate 6. Communicate referral to construction electrician as appropriate 7. Collaborate with case management/addiction social worker for discharge needs Outcome: Progressing Note: Evaluation of progress towards goal: * Situational Awareness - Lianne Mccormick MD - 12/03/2024 1:39 PM EDT [facility] Transfer Accept Note I have received a request for transfer of primary service for this patient from the neurology team.Clinical handoff report was given. [facility] will assume care as primary team of this patient starting 12/04/24 at 7:00 am. LIANNE MCCORMICK MD 12/03/2024 * Plan of Care - Uzma Mcpherson RN - 12/03/2024 11:11 AM EDT Problem: Glucose Imbalance Goal: Clinical indication of [...] discharge planning process 5. Communicate referral to primary special educator as appropriate 6. Communicate referral to construction electrician as appropriate 7. Collaborate with case management/addiction social worker for discharge needs Note: Evaluation of progress towards goal: pt request to meet social sciences lecturer documented in this encounterUK Healthcare07-14-2025 Hospital course Narrative* Elda Aguirre MD - 12/05/2024 2:58 PM EDT Images from the original note were not included. [facility] Medicine Discharge Summary Patient Name: Addie Jean Baptiste : 1975 PCP: No primary care provider on file. DATE OF ADMISSION: 12/02/2024 DATE OF DISCHARGE: 12/05/2024 PRIMARY DISCHARGE DIAGNOSIS: Acute onset bilateral vision loss secondary to hyperglycemia SECONDARY DISCHARGE DIAGNOSIS: Uncontrolled type 2 diabetes mellitus Hyperglycemia in setting of above Diabetic retinopathy [id number] diabetic macular edema right eye Seizure-like episode [...] should follow up closely with her outpatient laundry attendant and neurologist. Patient was evaluated by PTOT recommended detention facility, patient refusing at this time. Therefore [...] Follow-ups to Schedule [facility] [place], [place] Disease States/Services: Diabetes Adherence & Access [...] 157.5 cm (5' 2.01 ) Wt 111.4 kg(245 lb 9.5 oz) SpO2 94% BMI 44.91 [...] Independ wkstn Result Date: 10/02/2024 1 1 [facility] Heart Station [address] [place] [address] [phone] (fax) Echocardiogram-[facility] Name: ADDIE ORGAN Study Date: 10/01/2024 03:03 PM B/P: 127 mmHg/111 mmHg HR: Date of : 1975 Location: [facility] Height: 62 in. Age: [...] of endocardial borders. All 10 mL of Lum ason used; however could not be appreciated Very limited windows due to patient body habitus No significant valvular abnormalities Measurements Left Ventricle Label Value Normal Value LVOT VTI 12.8 cm (18cm - 22cm) LVOT PGmax 2 mmHg LVOT PGmean 1 mmHg Mitral Valve Label Value Normal Value MV E Vmax1.14 m/s MV A Vmax 0.92 m/s MV [...] systolic function is difficult to assess but appearspreserved. Left ventricular wall thickness is normal. No regional wall motion abnormality. Grade 2,moderate diastolic dysfunction (pseudonormalized LV filling pattern). Left atrial filling pressure is elevated. Right Ventricle: Right ventricle is poorly visualized. A pacemaker wire is seen in the right atrium and right ventricle. Doppler studies suggest normal right sided pressures. Left Atrium:The left atrium appears normal in size. Right [...] Procedure Staff Reading Group: [facility] Freezer Person: Varsha Hyde RDCS Ordering Physician: JUAN C Morfinronically signed by MD JUAN C CRABTREE on 10/02/2024 at 01:31 PM Cultures Microbiology Results No results found for [...] Medications These medications were sent to [facility]/pharmacy #[id number] - [place], [place] - [address] [facility] [address] [address] insulin glargine 100 unit/mL injection insulin lispro 100 unit/mL insulin pen pen needle, diabetic 32 gauge x 5/32 needle 37 minutes were spent on discharging this patient. Elda Aguirre MD documented in this encounterUK Healthcare07-14-2025 Hospital Discharge instructions* Discharge Instructions* Elda Aguirre MD - 12/05/2024 2:51 PM EDT If you have any questions regarding care after discharge please call your doctor. Please seek medical attention for symptoms that are worsening or not improving. If you are experiencing an emergency,call 9-1-1. Follow up with your primary care physician within 1-2 weeks of discharge please follow up with Neurology and Ophthalmology. Please follow up with her outpatient laundry attendant Please follow your medication reconciliation carefully for new medications, changes in doses or medications that were stopped. If new medications are prescribed at discharge you can find further information about these medications in your discharge paperwork. * Appointments* Rick Thomas - 12/04/2024 3:50 PM EDT YOUR SCHEDULED APPOINTMENTS Dec 07, 2024 10:00 AM (Arrive by 9:45 AM) New Patient with Lindsay Johnson APRN-BEATRIZ [facility] ([facility]) [address] [place] [address] [address] [facility] [phone] Pt. should bring the following to [...] For NEW patients, MD will not prescribe longshore equipment operator pain medication. * Attachments The following attachments cannot be sent through Care Everywhere. * Checking your blood sugar at home (Stateless) * Insulin Lispro, ADULT (Stateless) * Insulin Glargine, ADULT (Stateless) * Aspirin, ADULT (Stateless) * Atorvastatin, ADULT (Stateless) * Metformin, ADULT (Stateless) * Levetiracetam, ADULT (Stateless) documented in this encounterUK Healthcare07-14-2025 Progress note* Discharge Planning Note - Jaky Sauceda - 12/05/2024 12:14 PM EDT DISCHARGE PLANNING NOTE Referral to [facility]- P# ; F# , [address] [facility] [place] (P# ; F# ) , [facility] (P# ; F# ) [facility]07-14-2025 Progress note* PT/OT/LEAN MANUFACTURING ENGINEER - Jesús Singh, PT - 12/05/2024 12:01 PM EDT Physical Therapy Evaluation Discharge Recommendations for Safe Patient Transition Discharge Recommendations: Post acute - moderate Post Acute Moderate Rehab Needs: Recommend moderate intensity rehab, Tolerate 1- 2 hrs of therapy 3-5 days/wk, Subacute or [...] brain (-); Blood sugar 640- transferred to [facility] Neuro- MRI brain; B vision loss likely 2/2 hyperglycemic refraction error H- bipolar Dx- diabetic retinopathy, mild-moderate diabetic macular edema R eye Past Medical History: Diagnosis Date Arrhythmia Arthritis Bipolar disorder ([facility]) Bronchitis, chronic ([facility]) Chronic constipation Chronic kidney disease Depression Diabetes mellitus type 2, controlled ([facility]) 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 Prior Function Lives With: Daughter Other: [...] Patient will perform bed mobility with Modified [place] Dates: Start: 12/05/24 Expected End: 12/22/24 Description: [...] vision Active Problems: Hyperosmolar hyperglycemic state (HHS) ([facility]) SOLO (acute kidney injury) HHS (hypothenar hammer syndrome) [facility] [facility] [employer] [id number] Progress note* Discharge Planning Note - Crista Leung RN - 12/05/2024 11:49 AM EDT Ongoing Assessment for Discharge Needs Reviewed discharge [...] family/friend/caregiver involved in their discharge planning? No, thepatient does not wish to have family/friend/caregiver involved in their discharge planning Discharge Disposition Home with home health services Patient choice offered Yes List Provided Yes CarePort List Provided Home Care Per RN during discharge transition rounds, barriers to discharge are: PT/OT andreasals, needs to follow up with endocinologist, and new PCP appt was made by JUANA. . Discharge Plan: Home with Home care. CN met with patient. Patient provided choices for Home care [facility] tasked to send referrals to [address] [facility] home care. Patient stated she lives on the first floor of her daughter's home off the dining room and her son lives in the basement. Slubber Tender will continue to follow for any discharge needs. - Crista Leung RN 12/05/24 11:52 AM Addendum: PT/OT rec SNF. CN met with patient and discussed therapy recommendation. Patient stated NO to SNF option. [address] is possibly accepting for home care. Waiting on final decision from [address] Patient insists she lives on the first floor and her son is the one who lives In the basement bedroom. CN tried to call daughter. - Crista Leung RN 12/05/24 1:04 PM Blood sugars have stablized and patient will be discharged today.. CN met with patient to discuss that [address] home care could accept referral and patient stated she will have to Call Medicaid provider for transport. CN stayed to verify with Medicaid transport provider that the patient is discharging from [facility] going home, cab transport arranged for 4pm at [facility]. Nurse and attending physician notified . DC CRF completed and [facility] tasked to send DC orders to [address] - Crista Leung RN 12/05/24 3:35 PM [facility] [employer] [id number] Progress note* PT/OT/LEAN MANUFACTURING ENGINEER - Tamiko Hoover OTR/Thuy - 12/05/2024 11:41 AM EDT Occupational Therapy Evaluation Discharge Recommendations for Safe Patient Transition Discharge Recommendations: Post acute - moderate Post Acute Moderate Rehab Needs: Recommend moderate intensity rehab, Tolerate 1- 2 hrs of therapy 3-5 days/wk, Subacute or [...] brain (-); Blood sugar 640- transferred to [facility] Neuro- MRI brain; B vision loss likely 2/2 hyperglycemic refraction error PMH- bipolar Dx- diabetic retinopathy, mild-moderate diabetic macular edema R eye Past Medical History: Diagnosis Date Arrhythmia Arthritis Bipolar disorder ([facility]) Bronchitis, chronic ([facility]) Chronic constipation Chronic kidney disease Depression Diabetes mellitus type 2, controlled ([facility]) 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 Whenasked if pt lives in a house, she [...] B LE's for sit to supine. Pt declinedto sit in chair. Pt in bed at end of session with call light in reach Transfers Sit to Stand: Min assist Stand to Sit: Min assist Other: On initial transfer from bed, pt required min assist but was dizzy and sat back down on bed.On second transfers, min assist again and pt [...] (acute kidney injury) HHS (hypothenar hammer syndrome) [facility]07-14-2025 Plan of care note* Plan of Care - Rafael Chavira RN - 12/05/2024 11:22 AM EDT Problem: Pain Goal: Patient goal is pain score less than 4, able to rest, and participant in treatment plan as appropriate Description: INTERVENTIONS: 1. Encourage patient or legal solar sales representative and assessor to report early pain and ask for [...] per policy 9. Teach patient or legal solar sales representative and assessor interventions for comforting Outcome: Progressing Note: Evaluation [...] at the bedside 7. Instruct patient/ patient solar sales representative and assessor about use of safety devices 8. Include patient/ patient solar sales representative and assessor in decisions related to safety Outcome: Progressing Note: Evaluation of progress towards goal: Patient remains injury-free amid hospitalization due to proper safety precautions. Rafael Chavira RN [facility]07-14-2025 Plan of care note* Plan of Care - Ellen Valera RN - 12/05/2024 3:51 AM EDT Problem: Glucose Imbalance Goal: Clinical indication of [...] Score of =/> 25 or indicated by [facility] Rehab Assessment Goal: Patient should be free from fall Description: Interventions: 1. [place] to environment 2. Hourly rounds addressing the [...] non-skid footwear 11. Teach patient and patient solar sales representative and assessor to maintain environment for safety and engage [...] (cane, walker) within reach 19. Request patient solar sales representative and assessor bring adaptive equipment/mobility aids from home or obtain and provide as needed 20. Consult pharmacy regarding effects of med's affecting mobility, cognition, and alternatives 21. Obtain physician order for PT if risk factors associated with mobility are present 22. Obtain physician order for OT as appropriate 23. Utilize diversional activities 24. Educate patient and patient solar sales representative and assessor how to maintain a safe environment during visitationtimes (notify nurse prior to leaving bedside) 25. Consider appropriateness of medical or non-medical technologist chemistry 26. Set up voiding schedule as appropriate (every 2 hours) Outcome: Progressing Note: Evaluation of progress towards goal: Bed locked and lowered to lowest setting. Call greco within reach, personal items within reach. Problem: Pain Goal: Patient goal is pain score less than 4, able to rest, and participant in treatment plan as appropriate Description: INTERVENTIONS: 1. Encourage patient or legal solar sales representative and assessor to report early pain and ask for [...] per policy 9. Teach patient or legal solar sales representative and assessor interventions for comforting Outcome: Progressing Note: Evaluation [...] at the bedside 7. Instruct patient/ patient solar sales representative and assessor about use of safety devices 8. Include patient/ patient solar sales representative and assessor in decisions related to safety Outcome: Progressing Note: Evaluation of progress towards goal: Medication administered using 5 rights; dual identifiersused with each patient interaction, and fall risks [...] hygiene technique. 7. Identify and instruct patient/patient solar sales representative and assessor in use of appropriate isolation precautionsfor identified infection/symptoms. 8. Provide and discuss with patient/patient solar sales representative and assessor on educational MDRO sheet. 9. Encourage and monitor nutritional status daily and consult construction electrician if indicated. 10. Implement neutropenic guidelines as needed. Outcome: Progressing Note: Evaluation of progress towards goal: Patient has no current signs and symptoms of infection; monitoring vitals and labs Problem: Knowledge Deficit Goal: Patient/patient solar sales representative and assessor demonstrates understanding of disease process, treatment plan,medications, and discharge instructions Description: INTERVENTIONS 1. Complete learning assessment and assess knowledge base 2. Provide teaching at level of understanding 3. Provide teaching via preferred learning method(s) Outcome: Progressing Note: Evaluation of progress towards goal: Patient verbalizes understanding of treatment plan, medications, and discharge plans. [facility]07-13-2025 Progress note* Discharge Planning Note - Rick Thomas - 12/04/2024 3:50 PM EDT DISCHARGE PLANNING NOTE Dec 07, 2024 10:00 AM (Arrive by 9:45 AM) New Patient with Lindsay Johnson APRN-BEATRIZ [facility] ([place] [address]) [address] [place] [id number] [facility]07-13-2025 History of Present illness Narrative* Elda Aguirre MD - 12/04/2024 2:49 PM EDT Images from the original note were not included. [facility] Hospitalists Progress Note Subjective SUBJECTIVE No [...] vision loss secondary to hyperglycemia Diabetic retinopathy Niab-he-codbxxfc diabetic macular edema right eye Seizure-like episode Type 2 diabetes mellitus, uncontrolled Acute kidney injury, resolved Elevated anion gap, resolved PLAN Lantus 20 units b.i.d. with medium correction scale a.c. HS and carb coverage. Further insulin adjustments as needed. Patient reports she had an insulin pump at home with no supplies. We will requireclose endocrinology follow up as an outpatient Continue home Keppra, atorvastatin, Synthroid, Lyrica, Seroquel PTOT to evaluate DVT prophylaxis: Heparin Discharge planning: tbd Elda Aguirre MD documented in this encounter[facility] Progress note* Discharge Planning Note - Ezra Will RN - 12/04/2024 12:42 PM EDT Images from the original note [...] and we didn't have money to get more.Never True Hunger Screening Complete? Yes Pt. Eligible [...] family/friend/caregiver involved in their discharge planning? No, thepatient does not wish to have family/friend/caregiver involved in their discharge planning Discharge Disposition Home with home health services Patient choice offered Yes List Provided Yes CarePort List Provided Home Care Armored Truck Driver met with patient, introduced self, and explained role. Patient educated on safe discharge plan. 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 . Caregiver is willing both physically [...] and resources provided. Discharge plan home with [facility]. PCP: No primary care provider on file. Pharmacy:[facility] PCP and pharmacy confirmed with patient. CN offered to assist with follow up appointment arrangements; patient agreeable, tasked appointment to [facility]. No primary care provider on file. added to Follow Up Providers for Summary of Care communication. Per patient self-report: Drug use: denies Smokinppd ETOH Use: denies Current discharge plan is: Home with daughter support and home care services[facility] to assist with finding [...] Evaluation of progress towards goal: home with C Return Home (pt-stated) Evaluation of progress towards goal: [facility] and daughter, friend support Will continue to follow as plan of care develops. CN discussed benefits and importance of medication compliance and follow ups. Please feel free to reach out for any discharge planning questions. - Ezra Will RN 12/04/24 12:42 PM [employer]07-13-2025 Plan of care note* Plan of Care - Uzma Mcpherson RN - 12/04/2024 7:06 AM EDT Problem: Glucose Imbalance Goal: Clinical indication of glucose balance is achieved Description: Patient's goal is: INTERVENTIONS 1. Monitor blood glucose levels as ordered 2. Administer medications as ordered 3. Notify physician of ineffective treatment plan Outcome: Progressing Note: Evaluation of progress towards goal: pt off insulin drip, continue education and s/s coverageblood glucose improved but still elevated [facility]07-13-2025 Plan of care note* Plan of Care - Shawna Carrington RN - 12/04/2024 12:44 AM EDT Problem: Glucose Imbalance Goal: Clinical indication of [...] discharge planning process 5. Communicate referral to primary special educator as appropriate 6. Communicate referral to construction electrician as appropriate 7. Collaborate with case management/addiction social worker for discharge needs Outcome: Progressing Note: Evaluation of progress towards goal: [facility]07-12-2025 Progress note* Situational Awareness - Lianne Mccormick MD - 12/03/2024 1:39 PM EDT [facility] Transfer Accept Note I have received a request for transfer of primary service for this patient from the neurology team.Clinical handoff report was given. [facility] will assume care as primary team of this patient starting 12/04/24 at 7:00 am. LIANNE MCCORMICK MD 12/03/2024 [facility]07-12-2025 Consult note* Esvin Ibrahim MD - 12/03/2024 12:29 PM EDT Date: Reason for consult: I have been [...] cataract surgery left eye and and she isaware of diabetic macular edema secondary to diabetic [...] using 2.5% Anibal-Synephrine and 1% Mydriacyl OU [place] sharp margins OU Cup/Disc Ratio 0.3 [...] with additional background diabetic retinopathy and possible ornq-vf-apjewpwx diabetic macular edema. The patient's profound visual complaints most likely was secondary to hyperglycemic refractive error. With control of the patient's diabetes vision is suspected to returned to baseline level in 2-4 weeks. The vision has been advised to follow-up with retina specialist Dr. Jonas Casey at [facility] and also to see regular hvac services professional for refractive care.. Thanks Esvin Ibrahim MD, FACS. [employer] [id number] Consult note* Esvin Ibrahim MD - 12/03/2024 12:29 PM EDT Date: Reason for consult: I have been [...] cataract surgery left eye and and she isaware of diabetic macular edema secondary to diabetic [...] using 2.5% Anibal-Synephrine and 1% Mydriacyl OU [place] sharp margins OU Cup/Disc Ratio 0.3 [...] with additional background diabetic retinopathy and possible gipy-go-jzgducdd diabetic macular edema. The patient's profound visual complaints most likely was secondary to hyperglycemic refractive error. With control of the patient's diabetes vision is suspected to returned to baseline level in 2-4 weeks. The vision has been advised to follow-up with retina specialist Dr. Jonas Casey at [facility] and also to see regular hvac services professional for refractive care.. Thanks Esvin Ibrahim MD, FACS. * Lianne Mccormick MD - 12/03/2024 8:45 AM EDTAssociated Order(s): IP CONSULT TO INTERNAL MEDICINE Images from the original note were not included. [facility] Hospitalists Consultation 12/03/2024 Patient Name: Addie Jean Baptiste : 1975 Reason for Consultation: hyperglycemia Referring Physician/Team: Dr. Sam CHARLES Addie Jean Baptiste is a 49 y.o. 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 at home and does notcheck her blood glucose at all. She had an insulin pump that malfunctioned few months ago and she has been off the insulin pump ever since. She states that new pump was delivered to her place but shewas not able to assemble the pump on her own. She also had a Dexcom in the past and needs refills. Past Medical History: Diagnosis Date Arrhythmia Arthritis Bipolar disorder ([facility]) Bronchitis, chronic ([facility]) Chronic constipation Chronic kidney disease Depression Diabetes mellitus type 2, controlled ([facility]) Meningitis Sudden loss of vision 12/02/2024 Past Surgical History: Procedure Laterality Date CHOLECYSTECTOMY FOOT SURGERY Left HYSTERECTOMY LAPAROSCOPY PORT CLAVICLE RT Allergy: Darvocet a500 [propoxyphene n-acetaminophen], Tramadol, Adhesive tape- silicones, Dye, Ibuprofen, Latex, Vancomycin, Codeine, and Toradol [ketorolac] Prior to Admission medications Medication Sig Start Date End Date Taking? Authorizing Provider insulin glargine (LANTUS) 100 unit/mL injection Inject under the skin nightly. Yes Not In System Ref Prov insulin lispro (HumaLOG) 100 unit/mL injection Inject under the skin in the morning and at noon andin the evening. Inject before meals. Yes Not In System Ref Prov oxyCODONE-acetaminophen (PERCOCET) 5-325 mg per tablet Take 1 tablet by mouth every 8 (eight) hoursas needed for pain Indications: pain. Max Daily [...] smoking cigarettes. She has never used smokeless tobacco.She reports that she does not currently use [...] Intake/Output Summary (Last 24 hours) at 12/03/2024 0976 Last data filed at 12/03/2024 0831 Gross [...] She is interested in following up with [facility]. If she is able to bring he insulin pump to the hospital then we canconsult endocrinology and see if the can restart [...] am to 7 pm documented in this encounterUK [facility]07-12-2025 Plan of care note * Plan of Care - Uzma Mcpherson RN - 12/03/2024 11:11 AM EDT Problem: Glucose Imbalance Goal: Clinical indication of [...] discharge planning process 5. Communicate referral to primary special educator as appropriate 6. Communicate referral to construction electrician as appropriate 7. Collaborate with case management/addiction social worker for discharge needs Note: Evaluation of progress towards goal: pt request to meet social sciences lecturer [employer] [id number] Consult note* Lianne Mccormick MD - 12/03/2024 8:45 AM EDTAssociated Order(s): IP CONSULT TO INTERNAL MEDICINE Images from the original note were not included. [facility] Hospitalists Consultation 12/03/2024 Patient Name: Addie Jean [...] acute changes CTA head and neck could notbe obtained due to contrast allergy and patient [...] units subQ b.i.d. at home and does notcheck her blood glucose at all. She had an insulin pump that malfunctioned few months ago and she has been off the insulin pump ever since. She states that new pump was delivered to her place but shewas not able to assemble the pump on her own. She also had a Dexcom in the past and needs refills. Past Medical History: Diagnosis Date Arrhythmia Arthritis Bipolar disorder ([facility]) Bronchitis, chronic ([facility]) Chronic constipation Chronic kidney disease Depression Diabetes mellitus type 2, controlled ([facility]) Meningitis Sudden loss of vision 12/02/2024 Past Surgical History: Procedure Laterality Date CHOLECYSTECTOMY FOOT SURGERY Left HYSTERECTOMY LAPAROSCOPY PORT [place]ICLE RT Allergy: Darvocet a500 [propoxyphene n-acetaminophen], Tramadol, Adhesive tape- silicones, Dye, Ibuprofen, Latex, Vancomycin, Codeine, and Toradol [ketorolac] Prior to Admission medications Medication Sig Start Date End Date Taking? Authorizing Provider insulin glargine (LANTUS) 100 unit/mL injection Inject under the skin nightly. Yes Not In System Ref Prov insulin lispro (HumaLOG) 100 unit/mL injection Inject under the skin in the morning and at noon andin the evening. Inject before meals. Yes Not In System Ref Prov oxyCODONE-acetaminophen (PERCOCET) 5-325 mg per tablet Take 1 tablet by mouth every 8 (eight) hoursas needed for pain Indications: pain. Max Daily [...] smoking cigarettes. She has never used smokeless tobacco.She reports that she does not currently use [...] Intake/Output Summary (Last 24 hours) at 12/03/2024 0949 Last data filed at 12/03/2024 0831 Gross [...] She is interested in following up with [facility]. If she is able to bring he insulin pump to the hospital then we canconsult endocrinology and see if the can restart [...] Available from 7 am to 7 pm [employer] [id number] History and physical note* Hanna Mari MD - 12/03/2024 12:26 AM EDT Images from the original note were not included. [facility] Neurology General Neurology Primary Admission Note Primary Neurology service: [phone] Chief Complaint: Vision loss History: Addie Jean Baptiste is a 49 y.o. year old female who was admitted to inpatient Neurology for chief complaint of vision loss. 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 Patient initially presented to outside ER for sudden onset vision loss. She states that today when she attempted to stand up, her legs felt like wet noodles . She states that she developed vision loss in both eyes at the same time. She states that she was running into [place] and subsequently calledher son for help. She notes that her vision completely blacked out and she was not able to see anything. She denies any associated headache or pain in the eyes. Patient additionally states that when EMS arrived, she had a witnessed seizure was reportedly lasted for around [address] brain at outside facility was negative for any acute intracranial pathologies. CTA head and neckcould not be obtained due to contrast allergy and patient refusal. Per intake note, patient was very sleepy at the outside facility. Patient had reported that she can not see any movement, color or light through her eyes. Patient was additionally noticed to be very hyperglycemic at [facility]. [facility] Upon arrival to [facility], patient notes that her vision is still very blurry but it has improved significantly. Per chart review, patient had episode of left eye vision loss in October 2023 when she was seen at [facility]. There was concern for macular edema and retinal hemorrhage at that time. Patient was advised to goto the ER for stroke workup at that [...] History: Diagnosis Date Arrhythmia Arthritis Bipolar disorder ([facility]) Bronchitis, chronic ([facility]) Chronic constipation Chronic kidney disease Depression Diabetes mellitus type 2, controlled ([facility]) Meningitis Family History: No family history on [...] Strain: Low Risk (10/01/2024) Received from [facility] Overall Financial Resource Strain (CARDIA) Difficulty of Paying Living Expenses: Not hard at all Food Insecurity: No Food Insecurity (10/01/2024) Received from [facility] Hunger Vital Sign Within the past 12 months, you worried that your food would run out before you got the money to buymore.: Never true Ran Out of Food in the Last Year: Not on file Transportation Needs: No Transportation Needs (10/01/2024) Received from [facility] Transportation In the past 12 months, has lack of transportation kept you from medical appointments or from getting medications?: No Lack of Transportation (Non-Medical): Not on file Physical Activity: Not on file Stress: Not on file Social Connections: Not on file Interpersonal Safety: Unknown (10/01/2024) Received from [facility] Humiliation, Afraid, Rape, and Kick questionnaire Fear of Current or Ex-Partner: No Emotionally Abused: Not on file Physically Abused: Not on file Sexually Abused: Not on file Housing Instability: Low Risk (10/01/2024) Received from [facility] Housing Stability Vital Sign In the last 12 months, was there a time when you were not able to pay the mortgage or rent on time?: No Number of Times Moved in the Last Year: Not on file At any time in the past 12 months, were you homeless or living in a intermediate (including now)?: No Medications: None Allergies: Allergies [...] light touch throughout. Cerebellar: Able to do xvolei-mp-oani bilaterally; normal coordination Gait and station: Deferred Assessment: Addie Jean Baptiste is a 49-year-old female with a past medical history significant for CKD stage 3, type2 DM, diabetic peripheral neuropathy, hypertension, hyperlipidemia, sick [...] BMP. Hanna Mari MD PGY3 Neurology [facility] Staffed with: (Dr Vargas) This patient is being followed by the Neurology Resident service. Contact attending directly during these hours: Thursday to 7:30-8:30 A.M. to Thursday 12-1:00 p.m. Primary Neurology service: [phone] Consult neurology service: [phone] Resident Stroke Service: [phone] If the patient belongs to the Stroke [facility] service please contact the Stroke [facility]IDA directly. Cosigned by Vanessa Vargas MD at 12/03/2024 6:02 PM EDT Associated attestation - Vanessa Vargas MD - 12/03/2024 6:02 PM EDT I reviewed the resident's note and discussed the case with the resident. This specific service willnot be billed. Additional findings/notes: case was discussed over the phone [employer] Work Phone: 1(715) 858-304007-12-2025 History and physical note* Hanna Mari MD - 12/03/2024 12:26 AM EDT Images from the original note were not included. [facility] Neurology General Neurology Primary Admission Note Primary Neurology service: [phone] Chief Complaint: Vision loss History: Addie Jean Baptiste is a 49 y.o. year old female who was admitted to inpatient Neurology for chief complaint of vision loss. 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 Patient initially presented to outside ER for sudden onset vision loss. She states that today when she attempted to stand up, her legs felt like wet noodles . She states that she developed vision loss in both eyes at the same time. She states that she was running into [place] and subsequently calledher son for help. She notes that her vision completely blacked out and she was not able to see anything. She denies any associated headache or pain in the eyes. Patient additionally states that when EMS arrived, she had a witnessed seizure was reportedly lasted for around [address] brain at outside facility was negative for any acute intracranial pathologies. CTA head and neckcould not be obtained due to contrast allergy and patient refusal. Per intake note, patient was very sleepy at the outside facility. Patient had reported that she can not see any movement, color or light through her eyes. Patient was additionally noticed to be very hyperglycemic at [facility]. [facility]. Upon arrival to [facility], patient notes that her vision is still very blurry but it has improved significantly. Per chart review, patient had episode of left eye vision loss in October 2023 when she was seen at [facility]. There was concern for macular edema and retinal hemorrhage at that time. Patient was advised to goto the ER for stroke workup at that [...] History: Diagnosis Date Arrhythmia Arthritis Bipolar disorder ([facility]) Bronchitis, chronic ([facility]) Chronic constipation Chronic kidney disease Depression Diabetes mellitus type 2, controlled ([facility]) Meningitis Family History: No family history on [...] Strain: Low Risk (10/01/2024) Received from [facility] Overall Financial Resource Strain (CARDIA) Difficulty of Paying Living Expenses: Not hard at all Food Insecurity: No Food Insecurity (10/01/2024) Received from [facility] Hunger Vital Sign Within the past 12 months, you worried that your food would run out before you got the money to buymore.: Never true Ran Out of Food in the Last Year: Not on file Transportation Needs: No Transportation Needs (10/01/2024) Received from [facility] Transportation In the past 12 months, has lack of transportation kept you from medical appointments or from getting medications?: No Lack of Transportation (Non-Medical): Not on file Physical Activity: Not on file Stress: Not on file Social Connections: Not on file Interpersonal Safety: Unknown (10/01/2024) Received from [facility] Humiliation, Afraid, Rape, and Kick questionnaire Fear of Current or Ex-Partner: No Emotionally Abused: Not on file Physically Abused: Not on file Sexually Abused: Not on file Housing Instability: Low Risk (10/01/2024) Received from [facility] Housing Stability Vital Sign In the last 12 months, was there a time when you were not able to pay the mortgage or rent on time?: No Number of Times Moved in the Last Year: Not on file At any time in the past 12 months, were you homeless or living in a intermediate (including now)?: No Medications: None Allergies: Allergies [...] light touch throughout. Cerebellar: Able to do inpwbb-sf-zqgu bilaterally; normal coordination Gait and station: Deferred Assessment: Addie Jean Baptiste is a 49-year-old female with a past medical history significant for CKD stage 3, type2 DM, diabetic peripheral neuropathy, hypertension, hyperlipidemia, sick [...] BMP. Hanna Mari MD PGY3 Neurology [facility] Staffed with: (Dr Vargas) This patient is being followed by the Neurology Resident service. Contact attending directly during these hours: Thursday to 7:30-8:30 A.M. to Thursday 12-1:00 p.m. Primary Neurology service: [phone] Consult neurology service: [phone] Resident Stroke Service: [phone] If the patient belongs to the Stroke [facility] service please contact the Stroke [facility]IDA directly. Cosigned by Vanessa Vargas MD at 12/03/2024 6:02 PM EDT Associated attestation - Vanessa Vargas MD - 12/03/2024 6:02 PM EDT I reviewed the resident's note and discussed the case with the resident. This specific service willnot be billed. Additional findings/notes: case was discussed over the phone documented in this [facility]UK [facility]-30[facility]25 Telephone encounter Note* Telephone Encounter - Olivia Almonte - 11/21/2024 1:45 PM EDT Shon 10/24/24 [id number] Miscellaneous Notes* Telephone Encounter - Olivia Almonte - 11/21/2024 1:45 PM EDT Shon 10/24/24 documented in this [id number] History of Present illness Narrative* Jessica Romeo PA-C - 11/04/2024 9:00 AM EDT Opened for pre-charting. Patient not seen today, no show. [facility] Telephone encounter Note* Telephone Encounter - Moo Louise RN - 10/11/2024 3:49 PM EDT Pt informed of rx sent. Pharmacy updated to verify new rx and verbalized understanding. Will fill for pt today. [id number] Miscellaneous Notes* Telephone Encounter - Moo Louise RN - 10/11/2024 3:49 PM EDT Pt informed of rx sent. Pharmacy updated to verify new rx and verbalized understanding. Will fill for pt today. * Telephone Encounter - Moo Louise RN - 10/10/2024 4:39 PM EDT Patient was given 14 day supply on 09/23/24 pending UDS results (in media, consistent) so she would have been due to fill on 10/07/24. This RX is written to be filled on 10/23/24, ALSO - it is also only written for 14 day supply. Pleasecorrect and resend. * Telephone Encounter - Olivia Almonte - 10/06/2024 4:09 PM EDT Pt is asking for a prior auth for water therapy in [place]. [place] is where pt [place] now. pt will call back with information of faclity. * Telephone Encounter - Olivia Almonte - 10/06/2024 4:05 PM EDT Shon 09/23/24 documented in this [id number] Telephone encounter Note* Telephone Encounter - Moo Louise RN - 10/10/2024 4:39 PM EDT Patient was given 14 day supply on 09/23/24 pending UDS results (in media, consistent) so she would have been due to fill on 10/07/24. This RX is written to be filled on 10/23/24, ALSO - it is also only written for 14 day supply. Pleasecorrect and resend. [id number] Telephone encounter Note* Telephone Encounter - Olivia Almonte - 10/06/2024 4:09 PM EDT Pt is asking for a prior auth for water therapy in [place]. This is where pt lives now. pt will call back with information of faclity. [id number] Telephone encounter Note* Telephone Encounter - Olivia Almonte - 10/06/2024 4:05 PM EDT Shon 09/23/24 [id number] NoteSW notified that patient is ready for discharge. Dtr cannot transport her home. Pt called [employer] transportation line and speaker call made to schedule transport home. Address corrected in [facility] system to [facility]. Updates sent to [facility] providers to seek out accepting provider with new home address. Awaiting accepting provider. SW added information to AVS that we will call patient once we receive responses from [facility]. 5pm. Patient missed [employer]. She tried to reach out to insurance again but placed on hold. line crew supervisor agreed to call [facility] for patient to get her home. 10/06/24 SW has not rec'd any accepting [facility] out of 22 referrals. SW attempted to call patient -VM was full unable to leave a message. SW attempted to call dtr-no answer. No home health has been located for this patient.[facility]05-14-2025 NotePhysical Therapy Physical Therapy Treatment Patient Name: Addie Jean Baptiste : 1975 Today's Date: 10/05/2024 Patient Active Problem List Diagnosis NSTEMI (non-ST elevated myocardial infarction) ([facility]) Type 2 diabetes mellitus with circulatory disorder, [...] limited to breakdown of skin (CMS/HCC) Hypocalcemia Start Time: 1348 Stop Time: 1407 [...] to enter home. Pt becomes frustrated with proposal manager writer's questions re: PLOF, home safety, assistance [...] to 1: [employer] (more content not included)...[facility] 10-05-2024 Note Attestation signed by Leonardo [...] : Addie Jean Baptiste; 49 y.o. Location: [facility]/5160-01 Attending: Maye Ortiz DO Admit Date: 10/01/2024 [...] edema, morbid obesity who was taken to [facility] ED as she was noted to have [...] were noted to be elevated 180-->166 pg/mL. [facility] Cardiology was consulted from [facility] and she is transferred here for further [...] Meds: aspirin, 81 m (more content not included)...[facility]05-14-2025 NoteHospital Medicine Discharge Summary Final Discharge Diagnosis: NSTEMI (non-ST elevated myocardial infarction) ([facility]/HCC) due to demand ischemia Type 2 diabetes mellitus with circulatory disorder, with long-term current use of insulin (CMS/HCC) Sick sinus syndrome (CMS/HCC) Acute renal failure with acute tubular necrosis superimposed on stage 3a chronic kidney disease ([facility]) Seizure ([facility]) Bipolar 1 disorder ([facility]) Acquired hypothyroidism Class 3 severe obesity due to excess calories with serious comorbidity and body mass index (BMI) of 50.0 to 59.9 in adult Plantar ulcer of left foot, limited to breakdown of skin ([facility]) Hypocalcemia Admission Diagnosis: NSTEMI (non-ST elevated myocardial infarction) ([facility]/HCC) [I21.4] Hospital course: Addie Jean Baptiste [...] edema, morbid obesity who was taken to [facility] ED as she was noted to have [...] 180-->166 pg/mL. NSTEMI (non-ST elevated myocardial infarction) ([facility]) - cards consulted - likely demand ischemia [...] disorder, with long-term current use of insulin ([facility]) - HgbA1C 10.7 - in insulin pump at home - may resume medications at discharge Sick sinus syndrome ([facility]) - s/p pacemaker - interrogation ordered- did review interrogation report with cardiology. Report is stable. No issues seen on report Acute renal failure with acute tubular necrosis superimposed on stage 3a chronic kidney disease ([facility]) -Cr improved today to 1.26 - renal US negative - neph consulted during the stay. Patient did improve. Recommend to follow up outpatient Seizure ([facility]) - neuro consulted at admission - Continue LEV 1g BID at least until outpt neuro follow up - Patient will need referral to [facility] neurology (for epileptologist) at discharge. - Neuro will sign off. Bipolar 1 disorder ([facility]) - continue celexa 40mg daily - continue [...] left foot, limited to breakdown of skin ([facility]) - vascular surgery consulted No plans for debridement at this time. No antibiotics necessary. Upon inspection today this is not ulcer but rather a dry callus, no open tissue present. Recommend to keep callus clean and dry and follow up outpatient follow up with her translator interpreter for routine callus paring. No need for paring this admission. Arter (more content not included)...[facility] 10-04-2024 NoteSW requested with new consult today for [facility]. 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 She said it was [employer] something . Referral made to [facility]. Patient states she doesn't have current [...] look for donated walker for discharge if available.[facility]05-13-2025 NoteOccupational Therapy Occupational Therapy Evaluation Patient Name: Addie Jean Baptiste : 1975 Today's Date: 10/04/2024 Start Time: 1345 Stop Time: 1413 Time Calculation (min): 28 min OT Evaluation Time Entry OT Evaluation (Moderate) Time Entry: 28 General Subjective: Patient stated she was recently evicted from her home in [place]. Patient is now living with her sister in [place]. Patient agreed to get up to the [...] List Diagnosis NSTEMI (non-ST elevated myocardial infarction) ([facility]) Type 2 diabetes mellitus with circulatory disorder, with long-term current use of insulin ([facility]) Sick sinus syndrome ([facility]) Acute renal failure with acute tubular necrosis superimposed on stage 3a chronic kidney disease ([facility]) Seizure ([facility]) Bipolar 1 disorder ([facility]) Acquired hypothyroidism Class 3 severe obesity due to excess calories with serious comorbidity and body mass index (BMI) of 50.0 to 59.9 in adult Plantar ulcer of left foot, limited to breakdown of skin ([facility]) Hypocalcemia Past Medical History: Diagnosis Date Anxiety Bipolar 1 disorder ([facility]) Cardiac arrest ([facility]) 2019 Chronic back pain Chronic kidney disease Coronary artery disease Depression Diabetes mellitus ([facility]) Hypertension Insomnia Pacemaker Schizoaffective disorder ([facility]) Seizures ([facility]) Stroke ([facility]) Past Surgical History: Procedure Laterality Date CARDIAC [...] Level of Function Prior Function Level of [place]: Independent with ADLs and functional transfers, Needs [...] shower but patient perfo (more content not included)...[facility] 10-04-2024 NotePhysical Therapy Physical Therapy Evaluation Patient Name: Addie [...] Pt is 49 y.o female presenting to [facility] ED following tonic-clonic seizure [...] List Diagnosis NSTEMI (non-ST elevated myocardial infarction) ([facility]) Type 2 diabetes mellitus with circulatory disorder, with long-term current use of insulin ([facility]) Sick sinus syndrome ([facility]) Acute renal failure with acute tubular necrosis superimposed on stage 3a chronic kidney disease ([facility]) Seizure ([facility]) Bipolar 1 disorder ([facility]) Acquired hypothyroidism Class 3 severe obesity due to excess calories with serious comorbidity and body mass index (BMI) of 50.0 to 59.9 in adult Plantar ulcer of left foot, limited to breakdown of skin ([facility]) Hypocalcemia Past Medical History: Diagnosis Date Anxiety Bipolar 1 disorder ([facility]) Cardiac arrest ([facility]) 2019 Chronic back pain Chronic kidney disease Coronary artery disease Depression Diabetes mellitus ([facility]) Hypertension Insomnia Pacemaker Schizoaffective disorder ([facility]) Seizures ([facility]) Stroke ([facility]) Past Surgical History: Procedure Laterality Date CARDIAC [...] House Lives With: Family (Daughter, son, and [id number]) Home Living Comments: Pt states she was living with her son and DIL in [place] however the landlord kicked them out within the past week so they moved to [place] into her daughter's Home Layout: Two level, [...] Level of Function Prior Function Level of [place]: Independent with ADLs and functional transfers, Needs [...] Rest Breaks: 2 Act (more content not included)...[facility]05-13-2025 Note- s/p pacemaker - interrogation ordered- asked RN to call [facility] 10-04-2024 Note- HgbA1C 10.7 - in insulin pump at home - Glu 96-211 - currently lantus 12 units bid - currently [facility]UnMer[facility]-13-[facility] Note- continue celexa 40mg daily - continue pamelor 25mg nightly - continue seroquel 400mg nightlyUnMercy Health Defiance Hospital05-13-2025 Note- encourage weight loss - may benefit from a GLP-1 inhibitor, defer to PCPRiverside [facility] Hospital05-13-2025 Note- cards consulted - likely demand ischemia in setting of acute kidney injury, and seizure episode and elevated lactate. Xylogenicstronic device interrogation No current indication for heparin as her troponin is trending downward and patient is asymptomatic and having epistaxis. Aspirin 81 mg daily and Toprol 50 mg. Further recommendations to follow depending on echocardiogram results.[facility]05-13-2025 Note- neuro consulted at admission - Continue LEV 1g BID at least until outpt neuro follow up - Patient will need referral to [facility] neurology (for epileptologist) at discharge. - Recommend PT/OT. - Neuro will sign off.[facility]05-13-2025 Note- last TSH 3.71 - cont levothyroxine 75mcg dailyUnMercy Health Defiance Hospital05-13-2025 Note- vascular surgery consulted No plans for debridement at this time. No antibiotics necessary. Upon inspection today this is not ulcer but rather a dry callus, no open tissue present. Recommend to keep callus clean and dry and follow up outpatient follow up with her translator interpreter for routine callus paring. No need for [...] follow up with our service at this timeUnMercy Health [facility]05-13-2025 Note-Cr improved today to 1.75 - renal US negative - neph consultedUnMercy Health Defiance Hospital05-13-2025 Note- Ca 8.2 today - daily CBC Consult PT/OT/FRONT WORKER Will DC foleyRiverside [facility] Hospital05-13-2025 NoteHospital Medicine Daily Progress Note - 10/04/2024 12:12 PM; Room: [address] [place] [address] Admission: 10/01/2024 9:19 AM; Length of stay: 3 days THE HOSPITALIST TEAM PREFERS TO USE [employer] CHAT FOR NON-URGENT COMMUNICATION 7AM-7PM. IF I DO NOT RESPOND WITHIN 20 MINUTES OR URGENT MATTERS, PLEASE CALL THROUGH THE STITCHER SPECIAL MACHINE. FROM 7PM-7AM, PLEASE PAGE [phone](COVR). Code Status: Full Code Barriers to Discharge: [...] edema, morbid obesity who was taken to [facility] ED as she was noted to have [...] & Plan NSTEMI (non-ST elevated myocardial infarction) ([facility]) - cards consulted - likely demand ischemia [...] disorder, with long-term current use of insulin ([facility]) - HgbA1C 10.7 - in insulin pump at home - Glu 96-211 - currently lantus 12 units bid - currently ISS Sick sinus syndrome ([facility]) - s/p pacemaker - interrogation ordered- asked RN to call rep Acute renal failure with acute tubular necrosis superimposed on stage 3a chronic kidney disease ([facility]) -Cr improved today to 1.75 - renal US negative - neph consulted Seizure ([facility]) - neuro consulted at admission - Continue LEV 1g BID at least until outpt neuro follow up - Patient will need referral to [facility] neurology (for epileptologist) at discharge. - Recommend PT/OT. - Neuro will sign off. Bipolar 1 disorder ([facility]) - continue celexa 40mg daily - continue [...] left foot, limited to breakdown of skin ([facility]) - vascular surgery consulted No plans for debridement at (more content not included)...[facility]05-12-2025 NoteCa 6.6 - albumin 2.5, corrected calcium 7.4 - will give one gram of calciumUnMercy Health [facility]iance Hospital05-12-2025 Note-Cr improved today to 1.89 - renal US negative - neph consultedUnMercy Health Defiance Hospital05-12-2025 Note- vascular surgery consulted No plans for debridement at this time. No antibiotics necessary. Upon inspection today this is not ulcer but rather a dry callus, no open tissue present. Recommend to keep callus clean and dry and follow up outpatient follow up with her translator interpreter for routine callus paring. No need for [...] follow up with our service at this timeRiverside [facility]05-12-2025 Note Attestation with edits by Leonardo Moyer [...] edema, morbid obesity who was taken to [facility] ED as she was noted to have [...] were noted to be elevated 180-->166 pg/mL. [facility] Cardiology was consulted from [facility] ED and she is transferred here for [...] leg: No edema. N (more content not included)...[facility]05-12-2025 Note- neuro consulted at admission - Continue LEV 1g BID at least until outpt neuro follow up - Patient will need referral to [facility] neurology (for epileptologist) at discharge. - Recommend PT/OT. - Neuro will sign off.[facility]05-12-2025 Note- last TSH 3.71 - cont levothyroxine 75mcg dailyUnMercy Health [facility] Hospital05-12-2025 Note- encourage weight loss - may benefit from a GLP-1 inhibitor, defer to PCPUnMercy Health [facility]05-12-2025 Note- continue celexa 40mg daily - continue pamelor 25mg nightly - continue seroquel 400mg nightlyUnMer[facility]05-12-2025 Note- HgbA1C 10.7 - in insulin pump at home - Glu 115-413 - currently lantus 12 units bid - currently ISS - will discuss insulin dosing with pharmacy todayUnMercy Health Defiance Hospital05-12-2025 Note- s/p pacemaker - interrogation orderedUnMercy Health Defiance Hospital05-12-2025 Note- cards consulted - likely demand ischemia in setting of acute kidney injury, and seizure episode and elevated lactate. [employer] device interrogation No current indication for heparin as her troponin is trending downward and patient is asymptomatic and having epistaxis. Aspirin 81 mg daily and Toprol 50 mg. Further recommendations to follow depending on echocardiogram results. Cardiology team will continue to followUnMercy Health Defiance Hospital 10-03-2024 NoteHospital Medicine Daily Progress Note - 10/03/2024 10:32 AM; Room: [address] [place] [address] Admission: 10/01/2024 9:19 AM; Length of stay: 2 days THE HOSPITALIST TEAM PREFERS TO USE [employer] CHAT FOR NON-URGENT COMMUNICATION 7AM-7PM. IF I DO NOT RESPOND WITHIN 20 MINUTES OR URGENT MATTERS, PLEASE CALL THROUGH THE STITCHER SPECIAL MACHINE. FROM 7PM-7AM, PLEASE PAGE [phone](COVR). Code Status: Full Code Barriers to Discharge: sleepiness, trop, renal function Expected Discharge Date: 2 - 3 days Discharge Destination: home Yokasta Jean Baptiste is an 49 y.o. female [...] edema, morbid obesity who was taken to [facility] ED as she was noted to have [...] & Plan NSTEMI (non-ST elevated myocardial infarction) ([facility]) - cards consulted - likely demand ischemia [...] disorder, with long-term current use of insulin ([facility]) - HgbA1C 10.7 - in insulin pump at home - Glu 115-413 - currently lantus 12 units bid - currently ISS - will discuss insulin dosing with pharmacy today Sick sinus syndrome ([facility]) - s/p pacemaker - interrogation ordered Acute renal failure with acute tubular necrosis superimposed on stage 3a chronic kidney disease ([facility]) -Cr improved today to 1.89 - renal US negative - neph consulted Seizure ([facility]) - neuro consulted at admission - Continue LEV 1g BID at least until outpt neuro follow up - Patient will need referral to [facility] neurology (for epileptologist) at discharge. - Recommend PT/OT. - Neuro will sign off. Bipolar 1 disorder ([facility]) - continue celexa 40mg daily - continue [...] left foot, limited to breakdown of skin ([facility]) - vascular surgery consulted No plans for debridement at this time. No antibiotics necessary. Upon inspection razia (more content not included)...[facility]05-12-2025 Note Attestation signed by Kelley Liang RD at 10/03/2024 2:16 PM I attest that I was present for nutrition assessment and agree with learning and development intern's nutrition interventions and goals for pt. Adult Nutrition Assessment: Name: Addie Jean Baptiste Date: 1975 Date of Visit: 10/03/24 Admission Dx: NSTEMI (non-ST elevated myocardial infarction) ([facility]) [I21.4] Reason for assessment: high risk (L DFU) Information obtained from: patient, medical record, and nursing Past Medical History: Diagnosis Date Anxiety Bipolar 1 disorder ([facility]) Cardiac arrest ([facility]) 2019 Chronic back pain Chronic kidney disease Coronary artery disease Depression Diabetes mellitus ([facility]) Hypertension Insomnia Pacemaker Schizoaffective disorder ([facility]) Seizures ([facility]) Stroke ([facility]) Current Medications: aspirin, 81 mg, oral, Daily [...] 49 10/01/2024 1102 BG POC: 105-413 Troponin 510: 72 Allergies: Allergies Allergen Reactions Codeine Other, [...] ate all of her breakfast this morning (occitan muffin, wick, juice/coffee). Pt states she has had diabetes (more content not included)...[facility]05-12-2025 Note [facility] Vascular Surgery DAILY PROGRESS NOTE Subjective Patient [...] Agent, Strain, 3D, Bubble Study 1 [facility] Heart Station [address] [place] [address] [phone] (fax) Echocardiogram-[facility] Name: ADDIE ORGAN Study Date: 10/01/2024 03:03 PM B/P: 127 mmHg/111 mmHg HR: Date of : 1975 Location: [facility] Height: 62 in. Age: [...] 12 mmHg TR V (more content not included)...[facility]05-11-2025 Note- last TSH 3.71 - cont levothyroxine 75mcg dailyUnMercy Health [facility] Hospital05-11-2025 Note- encourage weight loss - may benefit from a GLP-1 inhibitor, defer to PCPUnMercy Health [facility]05-11-2025 Note- Cr 3.0 today - neph consultedUnMercy Health [facility] Hospital05-11-2025 Note- HgbA1C 10.7 - in insulin pump at home - Glu 134-249 - currently lantus 12 units bid - currently ISSUnMercy Health [facility]iance Hospital05-11-2025 Note- cards consulted - likely demand ischemia in [...] echocardiogram results. Cardiology team will continue to followUnMercy Health [facility] 10-02-2024 Note- s/p pacemaker - interrogation orderedUnMercy Health [facility] Hospital05-11-2025 Note- continue celexa 40mg daily - continue pamelor 25mg nightly - continue seroquel 400mg nightlyUnMercy Health [facility] Hospital05-11-2025 Note- vascular surgery consulted No plans for debridement at this time No antibiotics necessary Wash wound daily with soap and water, keep dry Will obtain arterial studies to evaluate for peripheral vascular disease [facility]05-11-2025 Note- neuro consulted at admission - Continue LEV 1g BID at least until outpt neuro follow up - Patient will need referral to [facility] neurology (for epileptologist) at discharge. - Recommend PT/OT. - Neuro will sign off.[facility]05-11-2025 NoteHospital Medicine Daily Progress Note - 10/02/2024 10:59 AM; Room: [facility]/[address] [place] [address] Admission: 10/01/2024 9:19 AM; Length of stay: 1 days THE HOSPITALIST TEAM PREFERS TO USE [employer] CHAT FOR NON-URGENT COMMUNICATION 7AM-7PM. IF I DO NOT RESPOND WITHIN 20 MINUTES OR URGENT MATTERS, PLEASE CALL THROUGH THE STITCHER SPECIAL MACHINE. FROM 7PM-7AM, PLEASE PAGE [phone](COVR). Code Status: Full Code Barriers to Discharge: [...] edema, morbid obesity who was taken to [facility] ED as she was noted to have [...] & Plan NSTEMI (non-ST elevated myocardial infarction) ([facility]) - cards consulted - likely demand ischemia [...] disorder, with long-term current use of insulin ([facility]) - HgbA1C 10.7 - in insulin pump at home - Glu 134-249 - currently lantus 12 units bid - currently ISS Sick sinus syndrome ([facility]) - s/p pacemaker - interrogation ordered Acute renal failure with acute tubular necrosis superimposed on stage 3a chronic kidney disease ([facility]) - Cr 3.0 today - neph consulted Seizure ([facility]) - neuro consulted at admission - Continue LEV 1g BID at least until outpt neuro follow up - Patient will need referral to [facility] neurology (for epileptologist) at discharge. - Recommend PT/OT. - Neuro will sign off. Bipolar 1 disorder ([facility]) - continue celexa 40mg daily - continue [...] arterial studies to evalua (more content not included)...[facility]05-11-2025 Note Attestation with edits by Juan C Crabtree MD at 10/02/2024 4:35 PM I personally saw and examined the patient on the same date of service as resident/fellow Dr Ho. I discussed the findings and therapeutic plan with the resident/fellow Dr Ho. I agree with the documentation, except for any edits/updates below. Teaching Physician's Revisions: None Juan C Crabtree MD, [facility] Cardiology Progress Note Subjective Subjective: Patient was [...] Nightly, Malika Cantu MD, 20 mg at 10/01/24 212 brexpiprazole (Rexulti) tablet 1 mg, 1 mg, [...] mg, 5 mg, oral, Nightly PRN, Malika Cantu, MD metoprolol succinate XL (Toprol-XL) 24 hr [...] MD, Last Rate: 75 mL/hr at 10/02/24 025, 75 mL/hr at 10/02/24 025 Insert peripheral [...] in acute distress. Appearanc (more content not included)...[facility] 10-01-2024 [facility]Un[facility] General Neurology Consultation Initial Note DATE OF [...] of any electrical seizures) who presented to [facility] ED after having a generalized tonic-clonic seizure [...] were noted to be elevated 180-->166 pg/mL. [facility] Cardiology was consulted from [facility] ED and she is transferred here for further management. A summary from her [facility] neurologist on 08/2023 noted: 2008 - [...] History: Diagnosis Date Anxiety Bipolar 1 disorder ([facility]) Cardiac arrest ([facility]) 2019 Chronic back pain Chronic kidney disease Coronary artery disease Depression Diabetes mellitus ([facility]) Hypertension Insomnia Pacemaker Schizoaffective disorder ([facility]) Seizures ([facility]) Stroke ([facility]) PAST SURGICAL HISTORY: Past Surgical History: Procedure [...] Other and Rash O (more content not included)...[facility]05-10-2025 NoteHospital Medicine History and Physical 10/01/2024 9:31 AM THE HOSPITALIST TEAM PREFERS TO USE [employer] FOR NON-URGENT COMMUNICATION 7AM-7PM. IF I DO NOT RESPOND WITHIN 20 MINUTES OR URGENT MATTERS, PLEASE CALL THROUGH THE STITCHER SPECIAL MACHINE. FROM 7PM-7AM, PLEASE PAGE [phone](COVR). Chief Complaint Intermittent anginal episodes, elevated troponin [...] edema, morbid obesity who was taken to [facility] ED as she was noted to have [...] were noted to be elevated 180-->166 pg/mL. [facility] Cardiology was consulted from [facility] and she is transferred here for further [...] sinus problems, no radha (more content not included)...[facility]05-08-2025 History of Present illness Narrative* Jay Peralta MA - 09/29/2024 1:43 PM EDT Faxed rx e-stim 09/28/24 documented in this [id number] Noteerror AUTHENTICATED BY JIM VELEZ ON 09/27/2024 21:37:15[facility]05-05-2025 NoteErroneous encounter, patient not seen for office visit on this date. See documentation regarding seizure episodes in office lobby and transportation to ED. AUTHENTICATED BY STEPHANY PELAYO ON 09/26/2024 08:41:02[facility]05-02-2025 Instructions* Patient Instructions* Jim Velez DO - 09/23/2024 11:13 AM [...] to Pain Management office 7 days before eachfill date, every month. Order physical therapy. Will complete MRI lumbar spine without contrast after physical therapy is completed Reorder TENS unit documented in this [id number] History of Present illness Narrative* Felix Olivae - 09/23/2024 10:55 AM EDT General Pain Index Questionnaire- [facility] Date: 09/23/24 Patient Name: ___Anastasiay Organ We would like to know how [...] Totally unable to function Score ____50 (60) * Jim Velez DO - 09/23/2024 10:50 AM EDT [facility] Interventional Pain Management Office Note [...] to Pain Management office 7 days before eachfill date, every month. Follow up with Dr. [...] pain (8-10/10), radiating from waist to feet withburning sensations, recent falls, and decreased mobility. - She was taking Percocet BID, Lyrica 75mg BID, and tizanidine. - Plan includes increasing Percocet to TID with 2-week supply, continuing Lyrica and tizanidine, ordering lumbar spine x-ray, physical therapy referral, TENS unit, and follow-up with new translator interpreter. -Addie has scheduled an appointment with a new translator interpreter, Dr. Sun, on the , as she [...] to the medial malleolus consistent with sequela ofremote trauma. 4. There is a 5 mm [...] and iv dye, Fentanyl, Ibuprofen, Latex, Linezolid, Lorazepam,Nsaids (non-steroidal anti-inflammatory drug), Vancomycin, and Propoxyphene Past Medical History Past Medical History: Diagnosis Date Anxiety Bipolar 1 disorder (HCC) Chronic back pain Chronic kidney disease, stage 3 unspecified (HCC) Coronary artery disease Depression Diabetes mellitus (HCC) Generalized anxiety disorder Hypertension Insomnia MRSA (methicillin resistant Staphylococcus aureus) Pacemaker Schizoaffective disorder (HCC) Seizures (HCC) Stroke ([facility]) Past Surgical History Past Surgical History: Procedure Laterality Date CHOLECYSTECTOMY FOOT SURGERY HYSTERECTOMY ORTHOPEDIC SURGERY left foot surgery PACEMAKER INSERTION PA AMPUTATION TOE METATARSOPHALANGEAL JOINT Left 04/01/2024 Procedure: [...] type II in her father; Hypertension in herfather; Seizures in her mother. Physical Exam PACU [...] total) by mouth daily . Dexcom G6 Wide Area Network Engineer Misc Use as directed for continuous glucose [...] mg total) by mouth 2 (two) times aday . levothyroxine (SYNTHROID, LEVOTHROID) 75 MCG tablet [...] mg total) by mouth 2 (two) times aday . metoprolol succinate (TOPROL-XL) 50 MG 24 hr tablet Take 1 (one) tablet (50 mg total) by mouth daily . miscellaneous medical supply [facility] 1 each by Miscellaneous route daily . [...] (one) tablet by mouth 2 (two) times aday as needed for pain . paliperidone (INVEGA) [...] FOR 7 DAYS AND AFTER IF TOLERATED FORPSYCHOSIS timolol (TIMOPTIC) 0.5 % ophthalmic solution Administer 1 (one) drop into the left eye daily . traZODone (DESYREL) 100 MG tablet Take 1 (one) tablet (100 mg total) by mouth nightly as needed forsleep . zinc oxide-white petrolatum 17-57 % Pste Apply 1 Application topically daily . oxyCODONE-acetaminophen (PERCOCET) 5-325 mg per tablet Take 1 (one) tablet by mouth 3 (three) timesa day as needed for pain (Days supply [...] to Pain Management office 7 days before eachfill date, every month. Order physical therapy. Will [...] OPIOIDS Jim Velez DO Interventional Pain Management [facility] documented in this [id number] NoteKet[facility] Interventional Pain Management Office Note [...] referral, TENS unit, and follow-up with new translator interpreter. -Addie has scheduled an appointment with a new translator interpreter, Dr. Sun, on the , as she [...] History: Diagnosis Date Anx (more content not included)...[facility] [id number] NoteCathy Organ is a 49-year-old female patient of Stephany Pelayo PA-C who is presenting for follow-up visit. She does present in a wheelchair. I was walking a patient of mine out to the [employer] when her fishing boat mate flagged me down saying that she was losing consciousness in the lobby. When I approached patient she had her eyes open but was unresponsive. At that time I did call for assistance. Within about a minute patient did start talking to me and said that she has not been feeling good and has been dizzy and shaking. The fishing boat mate with her said that he is not seeing her unresponsive like she was until just now. Staff members were able to start taking blood pressure at 2:18 PM with blood pressure at 139/85, heart rate 89 and oxygen was reading approximately 76% but patient has dark nail tamazight on. EMS was initiated at this time. [...] when EMS arrived. Patient was transferred to [facility] and taken to ED. [...] over. AUTHENTICATED BY KARON BEARD, ON 09/22/2024 16:04:57[facility] [id number] History of Present illness Narrative* Karon Beard PA-C - 09/22/2024 3:55 PM EDT Addie Jean Baptiste is a 49-year-old female patient of Stephany Pelayo PA-C who is presenting for follow-up visit. She does present in a wheelchair. I was walking a patient of mine out to the lobby when her fishing boat mate flagged me down saying that she was losing consciousness in the lobby. When I approached patient she had her eyes open but was unresponsive. At that time I did call for assistance. Within about a minute patient did start talking to me and said that she has not been feeling good and has beendizzy and shaking. The fishing boat mate with her said that he is not seeing her unresponsive like she was until just now. Staff members were able to start taking blood pressure at 2:18 PM with blood pressure at 139/85, heart rate 89 and oxygen was reading approximately 76% but patient has dark nail polishon. EMS was initiated at this time. Glucose [...] questions with eyes open and leaning to herright side with lack of head control which lasted approximately 30 seconds to a minute before she had a little bit of shaking similar to a cold chill and was slow to respond for about another minute. About 10 minutes later patient had another episode where she was unresponsive for about 2 minuteswith eyes open but unable to control her head as it was falling back. Support given. After about the 2-minute episode she started to respond slowly when EMS arrived. Patient was transferred to [facility] taken to ED. During each episode, patient's pulse rate was evaluated and found to not have any episodes of lost pulse, skipped beats or racing heart. We unfortunately were unable to move her wheel chair due to postictal state and size of patient. Patient does express concern for missing her painmanagement appointment if she goes to the ED and is worried about pain medication. She proceeded tohave EMS come back into the building and [...] until EMS took over. documented in this [id number] Telephone encounter Note* Telephone Encounter - Moo Louise RN - 09/22/2024 3:29 PM EDT Pt had appt today but was sent to ED by pcp due to seizure in her office. She is out of Percocet. She didn't call for refill due to appt today. Appt rescheduled for tomorrow morning. [id number] Miscellaneous Notes* Telephone Encounter - Moo Louise RN - 09/22/2024 3:29 PM EDT Pt had appt today but was sent to ED by pcp due to seizure in her office. She is out of Percocet. She didn't call for refill due to appt today. Appt rescheduled for tomorrow morning. documented in this [id number] History of Present illness Narrative* Ladan Oliva - 08/24/2024 9:12 AM EDT Called pt to reschedule frida , unable to lvm documented in this [id number] History of Present illness Narrative* Rafaela Castillo MA - 08/04/2024 10:18 AM EDT Pulse ox order faxed to [employer]. documented in this [id number] Instructions* Patient Instructions* Rafaela Castillo MA - 08/02/2024 3:12 PM EDT Call Neurology for your refills at [phone] Call [facility] to check on referrals at [phone] documented in this [id number] [facility] INTERNAL MEDICINE [address] [place] [address]. [place] [address] Subjective Patient ID: Addie Jean Baptiste is [...] She has been receiving telehealth consultations from [facility], which she reports as beneficial. [...] scan, and is interested in seeing a training and development specialist. She reports difficulty in ambulating due to foot pain, which is exacerbated by the formation of new blisters with each attempt to walk. She has an upcoming appointment with her translator interpreter on 08/12/2024 for multiple diabetic foot wounds and likely planning for surgery. She has not been performing any wound care at home. She reports the presence of blisters under both breasts, which are non-pruritic but cause a burning sensation. She is concerned about the potential development of ulcers.She has been using a wheelchair for mobility and continues to see a appliance painter and refinisher. She has an upcoming appointment with an laundry attendant at [facility]. Not routinely checking BG. She [...] Pacemaker Schizoaffective disorder (HCC) Seizures (HCC) Stroke ([facility]) Past Surgical History: Procedure Laterality Date CHOLECYSTECTOMY FOOT SURGERY HYSTERECTOMY ORTHOPEDIC SURGERY left foot surgery PACEMAKER INSERTION PA AMPUTATION TOE METATARSOPHALANGEAL JOINT Left 04/01/2024 Procedure: [...] (two) times a day . Dexcom G6 Wide Area Network Engineer Misc Use as directed for continuous glucose [...] as directed . ame (more content not included)...[facility]03-11-2025 History of Present illness Narrative* Stephany Pelayo PA-C - 08/02/2024 2:09 PM EDT [facility] INTERNAL MEDICINE [facility] [place] [id number] Subjective Patient ID: Addie Jean Baptiste is [...] She has been receiving telehealth consultations from [facility], which she reports as beneficial. Asking for pulse oximeter to use during these anxiety attacks. She notes that her seizures are often triggered by sleep deprivation, unclear when had last seizureepisode. She reports intermittent issues with constipation and requests a prescription for MiraLAX. She has been experiencing chronic lower back pain, which is exacerbated by movement. She was previously scheduled for surgery but was informed that she had shingles or MRSA, which precluded surgical intervention. She has undergone myelograms and a CT scan, and is interested in seeing a training and development specialist. She reports difficulty in ambulating due to foot pain, which is exacerbated by the formation of newblisters with each attempt to walk. She has an upcoming appointment with her translator interpreter on 08/12/2024 for multiple diabetic foot wounds and likely planning for surgery. She has not been performing any wound care at home. She reports the presence of blisters under both breasts, which are non-pruritic but cause a burning sensation. She is concerned about the potential development of ulcers.She has been using a wheelchair for mobility and continues to see a appliance painter and refinisher. She has an upcoming appointment with an laundry attendant at [facility]. Not routinely checking BG. She reports difficulty in rising from a seated position due to right knee pain, which occasionally swells. She is interested in pursuing physical therapy and x-rays. She has been experiencing vision problems, which she attributes to a previous episode of hemorrhagein the back of her eye. She has been referred to [facility] for further evaluation but declined an offeredinjection. She has undergone two eye surgeries, which [...] ORTHOPEDIC SURGERY left foot surgery PACEMAKER INSERTION PA AMPUTATION TOE METATARSOPHALANGEAL JOINT Left 04/01/2024 Procedure: [...] (two) times a day . Dexcom G6 Wide Area Network Engineer Misc Use as directed for continuous glucose [...] to 150 units once daily via pump .50 mL 5 INSULIN PUMP CARTRIDGE SUBQ Inject [...] mg total) by mouth 2 (two) times aday . 180 tablet 1 metFORMIN (GLUCOPHAGE) 1000 MG tablet Take 1 (one) tablet (1,000 mg total) by mouth 2 (two) times aday . 60 tablet 5 miscellaneous medical supply [...] (one) tablet by mouth 2 (two) times aday as needed for pain . 60 tablet [...] FOR 7 DAYS AND AFTER IF TOLERATED FORPSYCHOSIS timolol (TIMOPTIC) 0.5 % ophthalmic solution Administer [...] mg total) by mouth daily . 90 tablet1 citalopram (CELEXA) 40 MG tablet Take 1 [...] mg total) by mouth nightly as needed forsleep . 90 tablet 1 zinc oxide-white petrolatum [...] use included cigarettes. She started smoking about 9years ago. She has a 18.6 pack-year smoking history. She has been exposed to tobacco smoke. She hasnever used smokeless tobacco. She reports current drug use. Drug: Marijuana. She reports that she does not drink alcohol. reports that she has quit smoking. Her smoking use included cigarettes. She started smoking about 9years ago. She has a 18.6 pack-year smoking history. She has been exposed to tobacco smoke. She hasnever used smokeless tobacco. Current medication list and allergies reviewed and updated with patient. Past medical history reviewed. Past Surgical History reviewed. Personal history Social History reviewed. Family history Family History reviewed. REVIEW OF SYSTEMS: Review of Systems Constitutional: Negative for activity change, appetite change, fatigue, fever and unexpected weightchange. HENT: Negative for hearing loss. Eyes: Positive [...] Continue current medications as prescribed. Discharged from [facility] due to no-shows. 2. Chronic Pain of Both Knees She reports difficulty getting up after falls due to right knee pain. An x-ray of her knees will beordered. A referral to physical therapy will be [...] advised to maintain good foot hygiene and monitorfor any new blisters or ulcers. Continue insulin pump and metformin for now. 7. HTN BP stable in office. Continue lisinopril to 40 mg daily, Toprol-XL 50 mg once daily, [id number] mg daily. 8. Headaches Has been referred [...] supposed to be establishing with an external clinical engineer for evaluation. 18. Candidiasis Continue nystatin powder PRN 19. Insomnia Continue trazodone 100mg qhs PRN 20. B12 Deficiency Continue supplementation. 21. Vitamin D Deficiency Continue supplementation. 22. Health Maintenance. A mammogram will be ordered. Blood work will be ordered to monitor her overall health, including A1c levels. Diagnoses and all orders for this visit: Bipolar 1 disorder ([facility]) - citalopram (CELEXA) 40 MG tablet; Take 1 (one) tablet (40 mg total) by mouth daily . Chronic pain of both knees - Ambulatory Ref to [facility] (PT/OT/ST); Future Degeneration of intervertebral disc of lumbar region with discogenic back pain - Ambulatory referral to Spine Surgery; Future Chronic pain syndrome Diabetic ulcer of left great toe ([facility]) Type 2 diabetes mellitus with diabetic polyneuropathy, with long-term current use of insulin ([facility]) - Hemoglobin A1c; Future - Hemoglobin A1c [...] Chronic obstructive pulmonary disease, unspecified COPD type ([facility]) - albuterol (PROVENTIL) 2.5 mg /3 mL [...] 12/02/2024). Stephany Pelayo PA-C documented in this [id number] History of Present illness Narrative* Rafaela Castillo MA - 07/21/2024 5:05 PM EST Shower chair order, ins card and OV note faxed to [employer]. documented in this [id number] [facility] INTERNAL MEDICINE [facility] [place] [address] Subjective Patient ID: Addie Jean Baptiste is [...] her foot next week with podiatry in [place] for diabetic foot ulcer. She has been [...] She has requested referrals to a neurologist, scrub technician, and laundry attendant at [facility]. She has a history of [...] ORTHOPEDIC SURGERY left foot surgery PACEMAKER INSERTION PA AMPUTATION TOE METATARSOPHALANGEAL JOINT Left 04/01/2024 Procedure: [...] (two) times a day . Dexcom G6 Wide Area Network Engineer Misc Use as directed for continuous glucose [...] mg total) by mouth (more content not included)...[facility] [id number] History of Present illness Narrative* Stephany Pelayo PA-C - 07/15/2024 11:13 AM EST [facility] INTERNAL MEDICINE [address] [place] [address]. [place] [address] Subjective Patient ID: Addie Jean Baptiste is [...] her foot next week with podiatry in [place] for diabetic foot ulcer. She has been [...] She has requested referrals to a neurologist, scrub technician, and laundry attendant at [facility]. She has a history of pacemaker implantation, which was necessitated by SSS and syncope. She reports that the pacemaker has been dislodged from its pocket for approximately one year, and she is able to manipulateit. She was informed that the pacemaker would [...] ORTHOPEDIC SURGERY left foot surgery PACEMAKER INSERTION PA AMPUTATION TOE METATARSOPHALANGEAL JOINT Left 04/01/2024 Procedure: [...] (two) times a day . Dexcom G6 Wide Area Network Engineer Misc Use as directed for continuous glucose [...] to 150 units once daily via pump .50 mL 5 INSULIN PUMP CARTRIDGE SUBQ Inject under the skin Use as directed . lancets Misc 1 Lancet by Miscellaneous route 3 (three) times a day . 100 each 5 levETIRAcetam (KEPPRA) 1000 MG tablet Take 1 (one) tablet (1,000 mg total) by mouth 2 (two) times aday . 180 tablet 1 levothyroxine (SYNTHROID, LEVOTHROID) [...] mg total) by mouth 2 (two) times aday . 60 tablet 5 metoprolol succinate (TOPROL-XL) [...] (one) tablet by mouth 2 (two) times aday as needed for pain . 60 tablet [...] FOR 7 DAYS AND AFTER IF TOLERATED FORPSYCHOSIS timolol (TIMOPTIC) 0.5 % ophthalmic solution Administer 1 (one) drop into the left eye daily . tiZANidine (Zanaflex) 4 MG tablet Take 2 tabs p.o. nightly . 60 tablet 0 traZODone (DESYREL) 100 MG tablet Take 1 (one) tablet (100 mg total) by mouth nightly as needed forsleep . 90 tablet 0 chlorthalidone (HYGROTON) 25 MG tablet Take 1 (one) tablet (25 mg total) by mouth daily . 90 tablet1 citalopram (CELEXA) 40 MG tablet Take 1 [...] 60 tablet 2 naloxone (NARCAN) 4 mg/actuation Calypso Administer 1 spray into one nostril for [...] (Patient not taking: Reported on 07/15/2024 .) 20tablet 1 No current facility-administered medications for this [...] use included cigarettes. She started smoking about 9years ago. She has a 18.6 pack-year smoking history. She has been exposed to tobacco smoke. She hasnever used smokeless tobacco. She reports current drug use. Drug: Marijuana. She reports that she does not drink alcohol. reports that she has quit smoking. Her smoking use included cigarettes. She started smoking about 9years ago. She has a 18.6 pack-year smoking history. She has been exposed to tobacco smoke. She hasnever used smokeless tobacco. Current medication list and allergies reviewed and updated with patient. Past medical history reviewed. Past Surgical History reviewed. Personal history Social History reviewed. Family history Family History reviewed. REVIEW OF SYSTEMS: Review of Systems Constitutional: Negative for activity change, appetite change, fatigue, fever and unexpected weightchange. HENT: Negative for hearing loss. Eyes: Negative [...] improve. Stephany Pelayo PA-C documented in this [id number] Telephone encounter Note* Telephone Encounter - Mihai Elizalde CNP - 07/14/2024 12:03 PM EST Percocet can remain at BID dosing for now. She can discuss this with Dr Velez in July [id number] Miscellaneous Notes* Telephone Encounter - Mihai Elizalde CNP - 07/14/2024 12:03 PM EST Percocet can remain at BID dosing for now. She can discuss this with Dr Velez in July * Telephone Encounter - Moo Louise RN - 07/14/2024 11:43 AM EST Pt lvm asking if rx sent. Returned [...] normally. Noted slightly slurred speech. Encounter [facility] today with PCP addressing seizure. * Telephone Encounter - Moo Louise RN - 07/13/2024 11:02 AM EST Pt called to check on rx request. She states that her translator interpreter was supposed to call our office torequest allowing pt to take Percocet more than [...] year. She verbalized understanding. documented in this [id number] Telephone encounter Note* Telephone Encounter - Moo Louise RN - 07/14/2024 11:43 AM EST Pt lvm asking if rx sent. Returned [...] normally. Noted slightly slurred speech. Encounter in [facility] dated today with PCP addressing seizure. [id number] Telephone encounter Note* Telephone Encounter - Moo Louise RN - 07/13/2024 11:02 AM EST Pt called to check on rx request. She states that her translator interpreter was supposed to call our office torequest allowing pt to take Percocet more than [...] more than a year. She verbalized understanding. [id number] History of Present illness Narrative* Soto Box DPM FACFAS - 07/05/2024 8:20 AM EST Images from the original note were not included. Patient: Addie Montes Organ : 1975 PCP: [facility] Provider MD Jeanne [...] Past Medical History: Diagnosis Date Diabetes mellitus ([facility]) Hypertension ([facility]) Medications: Current Outpatient Medications: amoxicillin-clavulanate (Augmentin) 875-125 MG tablet, Take 1 tablet (875 mg) by mouth in the morning and 1 tablet (875 mg) in the evening. Take after meals. Do all this for 10 days. Take 1 pill p.o.b.I.d. for 10 days., Disp: 20 tablet, Rfl: [...] MOUTH ONCE DAILY IN THE MORNING WITH FOOD,Disp: , Rfl: Emgality 120 MG/ML auto-injector, USE DIRECTED ONCE EVERY MONTH FOR 30 DAYS, Disp: , Rfl: ergocalciferol (Vitamin D2) 1.25 MG (74629 UT) capsule, Take 1 capsule by mouth [...] AREA TWICE DAILY FOR 5 DAYS, Disp: ,Rfl: nystatin (Mycostatin) ointment, APPLY OINTMENT TOPICALLY TWICE DAILY FOR 10 DAYS, Disp: , Rfl: ofloxacin (Ocuflox) 0.3 % ophthalmic solution, INSTILL 1 DROP INTO LEFT EYE FOUR TIMES A DAY, Disp:, Rfl: prednisoLONE acetate (Pred-Forte) 1 % ophthalmic suspension, INSTILL 1 DROP INTO LEFT EYE FOUR TIMES A DAY, Disp: , Rfl: pregabalin (Lyrica) 100 MG capsule, Take 100 mg by mouth in the morning and 100 mg before bedtime.,Disp: , Rfl: promethazine (Phenergan) 25 MG tablet, [...] BY MOUTH EVERY 4 HOURS NEEDED, Disp: ,Rfl: Social History: Social History Socioeconomic History Marital [...] Medium Risk (01/13/2024) Received from [facility] Overall Financial Resource Strain (CARDIA) Difficulty of Paying Living Expenses: Somewhat hard Food Insecurity: No Food Insecurity (04/27/2024) Received from [facility] Hunger Vital Sign Worried About Running Out of Food in the Last Year: Never true Ran Out of Food in the Last Year: Never true Transportation Needs: No Transportation Needs (04/27/2024) Received from [facility] PRAPARE - Transportation Lack of Transportation (Medical): No Lack of Transportation (Non-Medical): No Physical Activity: Not on file Stress: Not on file Social Connections: Not on file Intimate Partner Violence: Not At Risk (04/27/2024) Received from [facility] Humiliation, Afraid, Rape, and Kick questionnaire Fear of Current or Ex-Partner: No Emotionally Abused: No Physically Abused: No Sexually Abused: No Housing Stability: Low Risk (04/27/2024) Received from [facility] Housing Stability Vital Sign Unable to Pay [...] noted mild venous stasis disease noted Neuro: [place] 5.07 monofilament absent Vibratory sensation diminished Musculoskeletal: Muscle strength +5/5 all intrinsic and extrinsic muscles tested ASSESSMENT 1. Type II diabetes mellitus with neurological manifestations ([facility]) 2. Chronic foot ulcer with fat layer exposed, left ([facility]) 3. Cellulitis of left foot PLAN Patient [...] 875 b.I.d. for 10 days and topical antibioticsbe applied. Educated offload the area and a surgical shoe which she currently has follow up with [facility] Thursday for the procedure. LUPE Capellan documented in this encounterCameron Regional Medical [id number] History of Present illness Narrative* Rafaela Castillo MA - 06/07/2024 11:32 AM EST Confirmation received. Pending scanning. * Rafaela Castillo MA - 06/06/2024 1:35 PM EST Received fax from [employer] for incontinence supplies. Forms completed, signed and faxed. Waiting for confirmation. documented in this [id number] History of Present illness Narrative* Karon Meng LPN - 05/31/2024 8:29 AM EST error documented in this [id number] Telephone encounter Note* Telephone Encounter - Margarita Burgos LPN - 05/27/2024 1:34 PM EST Pt is scheduled for appt with [facility] on 06/08/24. [id number] Miscellaneous Notes* Telephone Encounter - Margarita Burgos LPN - 05/27/2024 1:34 PM EST [facility]. * Telephone Encounter - Margarita Burgos LPN - 05/27/2024 1:33 PM EST ----- Message from Arcelia Whyte sent at 05/27/2024 1:23 PM EST ----- Regarding: Calling back with updated information Contact: Patient Patient called in states was suppose to call her [facility] and make an appointment and thencall back with that information. Patient advised she is now scheduled for 06/08/24 at 1:20 and is requesting that her QUEtiapine (SEROQUEL) 400 MG tablet () be filled. Patient states she was not aware that the office closed early today but needs the fill as soon as possible. Requesting a call back at [phone]. Thanks documented in this [id number] Telephone encounter Note* Telephone Encounter - Margarita Burgos LPN - 05/27/2024 1:33 PM EST ----- Message from Arcelia Whyte sent at 05/27/2024 1:23 PM EST ----- Regarding: Calling back with updated information Contact: Patient Patient called in states was suppose to call her [facility] and make an appointment and thencall back with that information. Patient advised she is now scheduled for 06/08/24 at 1:20 and is requesting that her QUEtiapine (SEROQUEL) 400 MG tablet () be filled. Patient states she was not aware that the office closed early today but needs the fill as soon as possible. Requesting a call back at [phone]. Thanks [id number] Instructions* Patient Instructions* Mihai Elizalde CNP - 05/13/2024 9:00 AM [...] to Pain Management office 7 days before eachfill date, every month. Follow up with Dr. Velez in 3 months documented in this [id number] [facility] Inter[facility] Office Note [...] - She mentions a previous hospitalization at [facility], where a foot amputation was considered but [...] ORTHOPEDIC SURGERY left foot surgery PACEMAKER INSERTION PA AMPUTATION TOE METATARSOPHA (more content not included)...[facility] [id number] History of Present illness Narrative* Mihai Elizalde CNP - 05/13/2024 8:50 AM EST [facility] Interventional Pain Management Office Note [...] in water therapy due to left foot painissues. - The patient was hospitalized from January 17 for five to seven days, during which she received Percocet every four hours for pain management. - Her toe is currently described as open flesh, with no amputation performed at this point. - The patient has a history of recurrent infections in the affected toe, occurring annually. - She mentions a previous hospitalization at [facility], where a foot amputation was considered but [...] to the medial malleolus consistent with sequela ofremote trauma. 4. There is a 5 mm [...] so we will maintain this for now [facility]. She continues Lyrica 75mg one capsule BID [...] ORTHOPEDIC SURGERY left foot surgery PACEMAKER INSERTION PA AMPUTATION TOE METATARSOPHALANGEAL JOINT Left 04/01/2024 Procedure: [...] type II in her father; Hypertension in herfather; Seizures in her mother. Physical Exam PACU [...] total) by mouth daily . Dexcom G6 Wide Area Network Engineer Mis Use as directed for continuous glucose [...] mg total) by mouth 2 (two) times aday . levothyroxine (SYNTHROID, LEVOTHROID) 75 MCG tablet [...] mg total) by mouth 2 (two) times aday . metoprolol succinate (TOPROL-XL) 50 MG 24 hr tablet Take 1 (one) tablet (50 mg total) by mouth daily . miscellaneous medical supply Misc 1 each by Miscellaneous route daily . naloxone (NARCAN) 4 mg/actuation Calypso Administer 1 spray into one nostril for [...] total) by mouth 2 (two) times a day. Omnipod 5 G6 Pods, Gen 5, Crtg [...] to Pain Management office 7 days before eachfill date, every month. Follow up with Dr. [...] OPIOIDS Mihai Elizalde CNP Interventional Pain Management [facility] documented in this [id number] Progress note* Quick Note - Yvette Canchola RN - 04/29/2024 2:01 PM EST Spoke with Dr. Floyd Castillo, No dressing needed for patients foot. Leave open to air , Any drainagerecommend neosporin and band-aid [id number] Miscellaneous Notes* Quick Note - Yvette Canchola RN - 04/29/2024 2:01 PM EST Spoke with Dr. Floyd Castillo, No dressing needed for patients foot. Leave open to air , Any drainagerecommend neosporin and band-aid * Plan of Care - Yvette Canchola RN - 04/29/2024 9:48 AM EST Problem: Actual or potential alteration in health [...] Absence of physical injury Outcome: Partially Met * Plan of Care - Yvette Canchola RN - 04/28/2024 7:51 AM EST Problem: Actual or potential alteration in health [...] Absence of pressure injury Outcome: Partially Met * Plan of Care - Kyrie Gonzalez RN - 04/27/2024 5:27 AM EST Problem: Actual or potential alteration in health [...] injury Outcome: Partially Met documented in this [id number] Plan of care note* Plan of Care - Yvette Canchola RN - 04/29/2024 9:48 AM EST Problem: Actual or potential alteration in health [...] Absence of physical injury Outcome: Partially Met [id number] [facility]12-06-2024 History of Present illness Narrative* Avila Rajan PA-C - 04/29/2024 9:21 AM EST [facility] PRO[facility]ESS NOTE ASSESSMENT: [...] with the patient and family if present. Discussedplan with other teams' providers. We discussed with [...] diagnostic recommendations. I explained discharge plans, including therequired post-hospitalization care, treatment, and services. All questions [...] 60 Units 60 Units Subcutaneous Nightly Lucina Preciado CNP 60 Units at 04/28/242107 insulin lispro (AdmeLOG,HumaLOG) injection 0-15 Units 0-15 Units Subcutaneous at bedtime Sarah Rizzo MD 0 Units at 04/28/242120 insulin [...] Harshad Rizzo MD 25 mg at 04/28/24 2120 ondansetron (ZOFRAN) injection 4 mg 4 mg [...] mg total) by mouth daily . 90 tablet1 citalopram (CELEXA) 40 MG tablet Take 1 (one) tablet (40 mg total) by mouth daily . 90 tablet 1 Dexcom G6 Wide Area Network Engineer Misc Use as directed for continuous glucose [...] to 150 units once daily via pump .50 mL 5 INSULIN PUMP CARTRIDGE SUBQ Inject [...] mg total) by mouth 2 (two) times aday . 180 tablet 1 levothyroxine (SYNTHROID, LEVOTHROID) [...] mg total) by mouth as needed for diarrhea(Max dose 7 pills) . 20 capsule 1 loratadine (CLARITIN) 10 mg tablet Take 1 (one) tablet (10 mg total) by mouth daily . 90 tablet 1 metFORMIN (GLUCOPHAGE) 1000 MG tablet Take 1 (one) tablet (1,000 mg total) by mouth 2 (two) times aday . 60 tablet 5 metoprolol succinate (TOPROL-XL) 50 MG 24 hr tablet Take 1 (one) tablet (50 mg total) by mouth daily . 90 tablet 1 miscellaneous medical supply Misc 1 each by Miscellaneous route daily . 100 each 2 naloxone (NARCAN) 4 mg/actuation Calypso Administer 1 spray into one nostril for [...] total) by mouth 2 (two) times a day. Omnipod 5 G6 Pods, Gen 5, Crtg [...] Reason for exam: Patient arrives with EMS ([facility]). She ambulated off of EMS cot [...] signs and symptoms: Patient arrives with EMS ([facility]). She ambulated off of EMS cot with assistance to bed. Per EMS, patient had an amputation of her left big toe on April 01 and has been dealing with infe ction. Patient states that she has been on [...] small marginal osteophytes, and probable small subchondral cysts.4. Lateral plate and screws internally fix the [...] EST I agree with assessment and plan. * Lucina Preciado CNP - 04/28/2024 7:37 AM EST [facility] PROGRESS NOTE Assessment and Plan Addie Jean Baptiste is a 48 y.o. female patient of Stephany Pelayo PA-C with history of T2DM, HTN, bipolar disorder, and chronic back pain presented to [facility] on 01/12/2024 with left toe wound. Postop [...] normal coloration Psych: normal mood and affect * Lucina Preciado CNP - 04/27/2024 7:42 AM EST [facility] PROGRESS NOTE Assessment and Plan Addie Jean Baptiste is a 48 y.o. female patient of Stephany Pelayo PA-C with history of T2DM, HTN, bipolar disorder, and chronic back pain presented to [facility] on 01/12/2024 with left toe wound. Postop [...] normal mood and affect documented in this [id number] Hospital course Narrative* Lucina Preciado CNP - 04/29/2024 8:25 AM EST Images from the original note were not included. [facility] DISCHARGE SUMMARY -- [facility] Addie Jean Baptiste Admitted: 04/26/2024 Discharge Date: 04/29/24 PCP Handoff Recommended Outpatient Testing Follow up with podiatry Results Pending At Discharge NONE Clinical Summary Addie Jean Baptiste is a 48 y.o. female patient of Stephany Pelayo PA-C with history of T2DM, HTN, bipolar disorder, and chronic back pain presented to [facility] on 01/12/2024 with left toe wound. Postop [...] needed for wheezing or shortness ofbreath . Quantity: 75 mL alcohol swabs Padm [...] daily . Quantity: 90 tablet Dexcom G6 Wide Area Network Engineer Mis Generic drug: blood-glucose meter,continuous Use as [...] a day . Quantity: 60 tablet lancets [facility] 1 Lancet by Miscellaneous route 3 (three) [...] . Quantity: 100 each naloxone 4 mg/actuation Calypso Commonly known as: NARCAN Administer 1 spray [...] for pain (Days supply per fill: 10) MAX6/DAY FOR ACUTE POST-OP PAIN . Quantity: 84 [...] on 04/29/24, 8:26 AM documented in this [id number] Telephone encounter Note* Telephone Encounter - Moo Louise RN - 04/28/2024 3:06 PM EST Pt in hospital, infection in toe amputation site. Due for refill on 04/22/24. [id number] Miscellaneous Notes* Telephone Encounter - Moo Louise RN - 04/28/2024 3:06 PM EST Pt in hospital, infection in toe amputation site. Due for refill on 04/22/24. documented in this [id number] [facility] 04-28-2024 Plan of care note* Plan of Care - Yvette Canchola RN - 04/28/2024 7:51 AM EST Problem: Actual or potential alteration in health [...] Absence of pressure injury Outcome: Partially Met [id number] [facility]12-04-2024 Consult note* Avila Rajan PA-C - 04/27/2024 10:35 AM ESTAssociated Order(s): IP CONSULT TO PODIATRY Images from the original note were not included. [facility] H&P/CONSULT ASSESSMENT: Diabetes [...] Sutures removed today as noted below. Will pl an to have patient on IV antibiotics during [...] the stitches. Betadine dry sterile dressing change house attendant the amputation site. -- OR Plans: None - ABX: cefazolin based on recent surgical cultures, per primary - DSG: Betadine dry sterile dressing change house attendant the amputation site. - WBS: Heel weightbearing left foot Answered questions and rediscussed plan at length with the patient and family if present. Discussedplan with other teams' providers. We discussed with [...] diagnostic recommendations. I explained discharge plans, including therequired post-hospitalization care, treatment, and services. All questions were answered and ample time was provided. Thank you for the consult! Avila Rajan PA-C, [facility] Surgery 04/27/2024 HISTORY: Addie Jean Baptiste is a 49 y.o. YEAR OLD female with PMH listed below who WAS ADMITTED TO [facility] ON 04/26/2024WITH postop toe infection Chief Complaint Patient presents [...] ORTHOPEDIC SURGERY left foot surgery PACEMAKER INSERTION PA AMPUTATION TOE METATARSOPHALANGEAL JOINT Left 04/01/2024 Procedure: [...] DRUG/FOOD ALLERGIES: Iodides, Ketorolac, Tramadol, Codeine, Propoxyphene n- acetaminophen, Adhesive,Compazine [prochlorperazine], Ct: iodinated contrast- oral and iv dye, Fentanyl, Ibuprofen, Latex, Linezolid, Lorazepam, Nsaids (non- steroidal anti-inflammatory drug), Vancomycin, and Propoxyphene MEDICATIONS: Current [...] 0-15 Units 0-15 Units Subcutaneous at bedtime Sarah Rizzo MD 9 Units at 04/27/24 0242 [...] mg total) by mouth daily . 90 tablet1 citalopram (CELEXA) 40 MG tablet Take 1 (one) tablet (40 mg total) by mouth daily . 90 tablet 1 Dexcom G6 Wide Area Network Engineer Misc Use as directed for continuous glucose [...] to 150 units once daily via pump .50 mL 5 INSULIN PUMP CARTRIDGE SUBQ Inject [...] mg total) by mouth 2 (two) times aday . 180 tablet 1 levothyroxine (SYNTHROID, LEVOTHROID) [...] mg total) by mouth as needed for diarrhea(Max dose 7 pills) . 20 capsule 1 loratadine (CLARITIN) 10 mg tablet Take 1 (one) tablet (10 mg total) by mouth daily . 90 tablet 1 metFORMIN (GLUCOPHAGE) 1000 MG tablet Take 1 (one) tablet (1,000 mg total) by mouth 2 (two) times aday . 60 tablet 5 metoprolol succinate (TOPROL-XL) 50 MG 24 hr tablet Take 1 (one) tablet (50 mg total) by mouth daily . 90 tablet 1 miscellaneous medical supply Misc 1 each by Miscellaneous route daily . 100 each 2 naloxone (NARCAN) 4 mg/actuation Calypso Administer 1 spray into one nostril for [...] total) by mouth 2 (two) times a day. Omnipod 5 G6 Pods, Gen 5, Crtg [...] Reason for exam: Patient arrives with EMS ([facility]). She ambulated off of EMS cot [...] signs and symptoms: Patient arrives with EMS ([facility]). She ambulated off of EMS cot with assistance to bed. Per EMS, patient had an amputation of her left big toe on April 01 and has been dealing with infe ction. Patient states that she has been on [...] small marginal osteophytes, and probable small subchondral cysts.4. Lateral plate and screws internally fix the [...] Castillo DPM at 04/28/2024 8:17 AM EST [id number] Consult note* Avila Rajan PA-C - 04/27/2024 10:35 AM ESTAssociated Order(s): IP CONSULT TO PODIATRY Images from the original note were not included. [facility] H&P/CONSULT ASSESSMENT: Diabetes [...] Sutures removed today as noted below. Will pl an to have patient on IV antibiotics during [...] the stitches. Betadine dry sterile dressing change house attendant the amputation site. -- OR Plans: None - ABX: cefazolin based on recent surgical cultures, per primary - DSG: Betadine dry sterile dressing change house attendant the amputation site. - WBS: Heel weightbearing left foot Answered questions and rediscussed plan at length with the patient and family if present. Discussedplan with other teams' providers. We discussed with [...] diagnostic recommendations. I explained discharge plans, including therequired post-hospitalization care, treatment, and services. All questions were answered and ample time was provided. Thank you for the consult! Avila Rajan PA-C, Foot and Ankle Surgery 04/27/2024 HISTORY: Addie Jean Baptiste is a 49 y.o. YEAR OLD female with PMH listed below who WAS ADMITTED TO [facility] ON 04/26/2024WITH postop toe infection Chief Complaint Patient presents [...] ORTHOPEDIC SURGERY left foot surgery PACEMAKER INSERTION PA AMPUTATION TOE METATARSOPHALANGEAL JOINT Left 04/01/2024 Procedure: [...] DRUG/FOOD ALLERGIES: Iodides, Ketorolac, Tramadol, Codeine, Propoxyphene n- acetaminophen, Adhesive,Compazine [prochlorperazine], Ct: iodinated contrast- oral and iv dye, Fentanyl, Ibuprofen, Latex, Linezolid, Lorazepam, Nsaids (non- steroidal anti-inflammatory drug), Vancomycin, and Propoxyphene MEDICATIONS: Current [...] Units 45 Units Subcutaneous Nightly Lucina Preciado, NAVAL ENGINEER insulin lispro (AdmeLOG,HumaLOG) injection 0-15 Units 0-15 Units Subcutaneous at bedtime Sarah Rizzo MD 9 Units at 04/27/24 0242 [...] Harshad Rizzo MD 800 mg at 04/27/24 024 senna (SENOKOT) tablet 17.2 mg 2 tablet [...] mg total) by mouth daily . 90 tablet1 citalopram (CELEXA) 40 MG tablet Take 1 (one) tablet (40 mg total) by mouth daily . 90 tablet 1 Dexcom G6 Wide Area Network Engineer Misc Use as directed for continuous glucose [...] to 150 units once daily via pump .50 mL 5 INSULIN PUMP CARTRIDGE SUBQ Inject [...] mg total) by mouth 2 (two) times aday . 180 tablet 1 levothyroxine (SYNTHROID, LEVOTHROID) [...] mg total) by mouth as needed for diarrhea(Max dose 7 pills) . 20 capsule 1 loratadine (CLARITIN) 10 mg tablet Take 1 (one) tablet (10 mg total) by mouth daily . 90 tablet 1 metFORMIN (GLUCOPHAGE) 1000 MG tablet Take 1 (one) tablet (1,000 mg total) by mouth 2 (two) times aday . 60 tablet 5 metoprolol succinate (TOPROL-XL) 50 MG 24 hr tablet Take 1 (one) tablet (50 mg total) by mouth daily . 90 tablet 1 miscellaneous medical supply [facility] 1 each by Miscellaneous route daily . 100 each 2 naloxone (NARCAN) 4 mg/actuation Calypso Administer 1 spray into one nostril for [...] total) by mouth 2 (two) times a day. Omnipod 5 G6 Pods, Gen 5, Crtg [...] Reason for exam: Patient arrives with EMS ([facility]). She ambulated off of EMS cot [...] signs and symptoms: Patient arrives with EMS ([facility]). She ambulated off of EMS cot with assistance to bed. Per EMS, patient had an amputation of her left big toe on April 01 and has been dealing with infe ction. Patient states that she has been on [...] small marginal osteophytes, and probable small subchondral cysts.4. Lateral plate and screws internally fix the [...] 04/28/2024 8:17 AM EST documented in this [id number] [facility] 04-27-2024 Plan of care note* Plan of Care - Kyrie Gonzalez RN - 04/27/2024 5:27 AM EST Problem: Actual or potential alteration in health [...] Absence of pressure injury Outcome: Partially Met [id number] History and physical note* Harshad Rizzo MD - 04/26/2024 11:47 PM EST [facility] HISTORY AND PHYSICAL -- [facility] Patient Name: Addie Jean Baptiste : 1975 MR #: [id number] Admit Date: 04/26/2024 Physicians: Stephany Pelayo PA-C (Family); No ref. provider found (Referring) Addie Jean Baptiste is a 48 y.o. female patient of Stephany Pelayo PA-C with history of T2DM, HTN, bipolar disorder, and chronic back pain presented to [facility] on 01/12/2024 with left toe wound. Assessment [...] diabetes and recent left toe amputation for osteomyelitispresented to ED complaining of swelling of the [...] ORTHOPEDIC SURGERY left foot surgery PACEMAKER INSERTION PA AMPUTATION TOE METATARSOPHALANGEAL JOINT Left 04/01/2024 Procedure: [...] and iv dye, Fentanyl, Ibuprofen, Latex, Linezolid, Lorazepam,Nsaids (non-steroidal anti-inflammatory drug), Vancomycin, and Propoxyphene Home [...] 04/26/24 11:47 PM Medications 04/26/24 11:47 PM [id number] History and physical note* Harshad Rizzo MD - 04/26/2024 11:47 PM EST [facility] HISTORY AND PHYSICAL -- [facility] Patient Name: Addie Jean Baptiste : 1975 MR #: [id number] Admit Date: 04/26/2024 Physicians: Stephany Pelayo PA-C (Family); No ref. provider found (Referring) Addie Jean Baptiste is a 48 y.o. female patient of Stephany Pelayo PA-C with history of T2DM, HTN, bipolar disorder, and chronic back pain presented to [facility] on 01/12/2024 with left toe wound. Assessment [...] diabetes and recent left toe amputation for osteomyelitispresented to ED complaining of swelling of the [...] ORTHOPEDIC SURGERY left foot surgery PACEMAKER INSERTION PA AMPUTATION TOE METATARSOPHALANGEAL JOINT Left 04/01/2024 Procedure: [...] and iv dye, Fentanyl, Ibuprofen, Latex, Linezolid, Lorazepam,Nsaids (non-steroidal anti-inflammatory drug), Vancomycin, and Propoxyphene Home [...] Medications 04/26/24 11:47 PM documented in this [id number] Physician Emergency department Note* Jacoby Dooley MD - 04/26/2024 10:54 PM EST [facility] EM[facility]GENCY [facility]PART[facility] ED Provider Note: Name: [...] resistant Staphylococcus aureus) Pacemaker Seizures (HCC) Stroke ([facility]) Patient Active Problem List Diagnosis Hypertension S/P placement of cardiac pacemaker Type 2 diabetes mellitus with diabetic polyneuropathy, with long-term current use of insulin ([facility]) Bipolar 1 disorder (HCC) Seizures ([facility]) Chronic chest pain GERD (gastroesophageal reflux disease) Hypothyroidism Diabetic peripheral neuropathy ([facility]) Insomnia Generalized weakness Muscle spasms of both lower extremities Bowel incontinence Vitamin B12 deficiency Vitamin D deficiency Cigarette nicotine dependence COPD (chronic obstructive pulmonary disease) ([facility]) Left-sided weakness History of stroke Visual loss, left eye Family history of pulmonary fibrosis Family history of dementia Urinary incontinence Chronic headaches Hypercholesterolemia CKD (chronic kidney disease) Retinal hemorrhage Diabetic ulcer of left great toe ([facility]) Hypertensive urgency Chronic pain syndrome Chronic pain of both knees Abdominal wound dehiscence Candidiasis Abnormal pigmentation of skin Toe osteomyelitis ([facility]) Postoperative infection PSurg: Past Surgical History: Procedure Laterality Date CHOLECYSTECTOMY FOOT SURGERY HYSTERECTOMY ORTHOPEDIC SURGERY left foot surgery PACEMAKER INSERTION PA AMPUTATION TOE METATARSOPHALANGEAL JOINT Left 04/01/2024 Procedure: AMPUTATION LEFT HALLUX; Surgeon: Shameka Castillo DPM; Location: [facility] Main OR; Service: Podiatry Allergies: Iodides, Ketorolac, Tramadol, Codeine, Propoxyphene n-acetaminophen, Adhesive, Compazine[prochlorperazine], Ct: iodinated contrast- oral and iv dye, Fentanyl, Ibuprofen, Latex, Linezolid,Lorazepam, Nsaids (non-steroidal anti- inflammatory drug), Vancomycin, and Propoxyphene Meds: Previous Medications [...] total) by mouth daily . Dexcom G6 Wide Area Network Engineer Misc Use as directed for continuous glucose [...] mg total) by mouth 2 (two) times aday . levothyroxine (SYNTHROID, LEVOTHROID) 75 MCG tablet [...] mg total) by mouth as needed for diarrhea(Max dose 7 pills) . loratadine (CLARITIN) 10 mg tablet Take 1 (one) tablet (10 mg total) by mouth daily . metFORMIN (GLUCOPHAGE) 1000 MG tablet Take 1 (one) tablet (1,000 mg total) by mouth 2 (two) times aday . metoprolol succinate (TOPROL-XL) 50 MG 24 hr tablet Take 1 (one) tablet (50 mg total) by mouth daily . miscellaneous medical supply Misc 1 each by Miscellaneous route daily . naloxone (NARCAN) 4 mg/actuation Calypso Administer 1 spray into one nostril for [...] total) by mouth 2 (two) times a day. Omnipod 5 G6 Pods, Gen 5, Crtg [...] the medial aspect of the incision. No purulentdrainage noted redness of the toe extending into [...] components within normal limits Narrative: [facility] has implemented the eGFR calculation [...] Procedure Abnormality Status --------- ------ CBC Auto Differential[[id number]] Abnormal Final result Please view results for [...] call required?: No Jacoby Dooley MD 04/26/24 9676 [id number] Emergency department Note* Jacoby Dooley MD - 04/26/2024 10:54 PM EST [facility] ED Provider Note: Name: [...] MRSA (methicillin resistant Staphylococcus aureus) Pacemaker Seizures ([facility]) Stroke ([facility]) Patient Active Problem List Diagnosis Hypertension S/P placement of cardiac pacemaker Type 2 diabetes mellitus with diabetic polyneuropathy, with long-term current use of insulin (HCC) Bipolar 1 disorder (HCC) Seizures ([facility]) Chronic chest pain GERD (gastroesophageal reflux disease) Hypothyroidism Diabetic peripheral neuropathy ([facility]) Insomnia Generalized weakness Muscle spasms of both lower extremities Bowel incontinence Vitamin B12 deficiency Vitamin D deficiency Cigarette nicotine dependence COPD (chronic obstructive pulmonary disease) ([facility]) Left-sided weakness History of stroke Visual loss, left eye Family history of pulmonary fibrosis Family history of dementia Urinary incontinence Chronic headaches Hypercholesterolemia CKD (chronic kidney disease) Retinal hemorrhage Diabetic ulcer of left great toe ([facility]) Hypertensive urgency Chronic pain syndrome Chronic pain of both knees Abdominal wound dehiscence Candidiasis Abnormal pigmentation of skin Toe osteomyelitis ([facility]) Postoperative infection PSurg: Past Surgical History: Procedure Laterality Date CHOLECYSTECTOMY FOOT SURGERY HYSTERECTOMY ORTHOPEDIC SURGERY left foot surgery PACEMAKER INSERTION PA AMPUTATION TOE METATARSOPHALANGEAL JOINT Left 04/01/2024 Procedure: AMPUTATION LEFT HALLUX; Surgeon: Shameka Castillo DPM; Location: [facility] Main OR; Service: Podiatry Allergies: Iodides, Ketorolac, Tramadol, Codeine, Propoxyphene n-acetaminophen, Adhesive, Compazine[prochlorperazine], Ct: iodinated contrast- oral and iv dye, Fentanyl, Ibuprofen, Latex, Linezolid,Lorazepam, Nsaids (non-steroidal anti- inflammatory drug), Vancomycin, and Propoxyphene Meds: Previous Medications [...] total) by mouth daily . Dexcom G6 Wide Area Network Engineer Misc Use as directed for continuous glucose [...] mg total) by mouth 2 (two) times aday . levothyroxine (SYNTHROID, LEVOTHROID) 75 MCG tablet [...] mg total) by mouth as needed for diarrhea(Max dose 7 pills) . loratadine (CLARITIN) 10 mg tablet Take 1 (one) tablet (10 mg total) by mouth daily . metFORMIN (GLUCOPHAGE) 1000 MG tablet Take 1 (one) tablet (1,000 mg total) by mouth 2 (two) times aday . metoprolol succinate (TOPROL-XL) 50 MG 24 hr tablet Take 1 (one) tablet (50 mg total) by mouth daily . miscellaneous medical supply Misc 1 each by Miscellaneous route daily . naloxone (NARCAN) 4 mg/actuation Calypso Administer 1 spray into one nostril for [...] total) by mouth 2 (two) times a day. Omnipod 5 G6 Pods, Gen 5, Crtg [...] the medial aspect of the incision. No purulentdrainage noted redness of the toe extending into [...] components within normal limits Narrative: [facility] has implemented the eGFR calculation [...] Procedure Abnormality Status --------- ------ CBC Auto Differential[[id number]] Abnormal Final result Please view results for [...] call required?: No Jacoby Dooley MD 04/26/24 3535 * Ne Mike RN - 04/26/2024 9:45 PM EST Pt reports not taking her BP medication today * Rita Weinstein LPN - 04/26/2024 7:40 PM EST Patient reports 03/03 pain and states she took her last percocet yesterday. Patient also reports that she does take medication for high blood pressure. * Rita Weinstein LPN - 04/26/2024 7:35 PM EST Patient arrives with EMS ([facility]). She ambulated off of EMS cot [...] She reports redness, pain and clear drainage. * Pavithra Lezama RN - 04/26/2024 7:35 PM EST Bed: 18 Expected date: Expected time: Means of arrival: Comments: 29 documented in this [id number] Emergency department Note* Ne Mike RN - 04/26/2024 9:45 PM EST Pt reports not taking her BP medication today [id number] Emergency department Note* Rita Weinstein LPN - 04/26/2024 7:40 PM EST Patient reports 10/10 pain and states she took her last percocet yesterday. Patient also reports that she does take medication for high blood pressure. [id number] Emergency department Triage note* Rita Weinstein LPN - 04/26/2024 7:35 PM EST Patient arrives with EMS ([facility]). She ambulated off of EMS cot [...] She reports redness, pain and clear drainage. [id number] Emergency department Note* Pavithra Lezama RN - 04/26/2024 7:35 PM EST Bed: 18 Expected date: Expected time: Means of arrival: Comments: 29 [id number] Note* Addendum Note - Mihai Elizalde CNP - 04/14/2024 11:03 AM ESTAddended by: MIHAI ELIZALDE on: 04/14/2024 11:03 AM Modules accepted: Orders [id number] Miscellaneous Notes* Addendum Note - Mihai Elizalde CNP - 04/14/2024 11:03 AM ESTAddended by: MIHAI ELIZALDE on: 04/14/2024 11:03 AM Modules accepted: Orders * Telephone Encounter - Jim Velez DO - 04/12/2024 11:30 PM EST Already sent remaining 15 tabs * Telephone Encounter - Moo Louise RN - 04/12/2024 5:09 PM EST Pt had to fill 15 tablets and pay oop due to insurance would not cover. Soniachenspeedy is trying to resubmit to insurance with updated info. But will need new rx for remaining 45 tablets. She only received 1 1/2 day supply and only has 1 tablet left. documented in this [id number] Telephone encounter Note* Telephone Encounter - Jim Velez DO - 04/12/2024 11:30 PM EST Already sent remaining 15 tabs [id number] Miscellaneous Notes* Telephone Encounter - Jim Velez DO - 04/12/2024 11:30 PM EST Already sent remaining 15 tabs * Telephone Encounter - Moo Louise RN - 04/12/2024 5:09 PM EST Pt had to fill 15 tablets and pay oop due to insurance would not cover. Jean is trying to resubmit to insurance with updated info. But will need new rx for remaining 45 tablets. She only received 1 1/2 day supply and only has 1 tablet left. documented in this [id number] Telephone encounter Note* Telephone Encounter - Moo Louise RN - 04/12/2024 5:09 PM EST Pt had to fill 15 tablets and pay oop due to insurance would not cover. Jean is trying to resubmit to insurance with updated info. But will need new rx for remaining 45 tablets. She only received 1 1/2 day supply and only has 1 tablet left. [id number] History of Present illness Narrative* Theresa. Roberto, SHYANN - 04/06/2024 8:29 AM EST PA request from Benjamin [facility] for Omnipod faxed * Maite Adams LPN - 03/30/2024 2:52 PM EST Alexander [facility] prescription request form complete for Omnipod / faxed documented in this [id number] Hospital course Narrative* Ruthy Dong MD - 04/04/2024 12:23 PM EST Images from the original note were not included. [facility] DISCHARGE SUMMARY Addie Jean Baptiste Admitted: 03/24/2024 [...] disorder, and chronic back pain presented to [facility] on 03/25/2024 with left toe wound. Sepsis [...] dos eot 35U qHs Diabetic diet Consulted certified diabetes educator: Resume insulin pump at discharge, verified [...] needed for wheezing or shortness ofbreath . Quantity: 75 mL alcohol swabs Padm [...] daily . Quantity: 90 tablet Dexcom G6 Wide Area Network Engineer [facility] Generic drug: blood-glucose meter,continuous Use as directed [...] Home with Home Health I saw Addie Organ in person and spent > 30 min total on day of discharge Discharge instructions (including activity) provided to patient/family prior to leaving Completed by: Ruthy Dong MD on 04/04/24, 12:23 PM documented in this [id number] [facility] 04-04-2024 History of Present illness Narrative* Avila Rajan PA-C - 04/04/2024 9:58 AM EST [facility] PROGRESS NOTE ASSESSMENT [...] with the patient and family if present. Discussedplan with other teams' providers. We discussed with [...] diagnostic recommendations. I explained discharge plans, including therequired post-hospitalization care, treatment, and services. All questions [...] 40 mg 40 mg Oral Nightly Juwan Smtih MD 40 mg at 04/03/242122 busPIRone (BUSPAR) tablet 30 mg 30 mg Oral BID Juwan Smith MD 30 mg at 04/04/24 0857 cefadroxil (DURICEF) capsule 500 mg 500 mg Oral Q12H [facility] Enrique Anthony, NAVAL ENGINEER 500 mg at 04/03/242124 citalopram (CELEXA) tablet 40 mg 40 mg Oral Daily Juwan Smith MD 40 mg at 04/04/24 0857 enoxaparin (LOVENOX) syringe 40 mg 40 mg Subcutaneous BID Lowell Roberts, [facility],PharmD 40 mg at 04/04/24 0856 hydrALAZINE (APRESOLINE) [...] mg 0.1 mg Intravenous PRN Floyd Rubin [facility],PharmD 0.1 mgat 03/28/24 0520 And naloxone (NARCAN) injection 0.4 mg 0.4 mg Intravenous PRN Floyd Rubin RP,PharmD 0.4 mgat 03/26/24 2300 nicotine (NICODERM CQ) 14 mg/24 hr 1 patch 1 patch Transdermal Daily Maya Franklin PA-C 1 patch at 04/02/24 0904 nortriptyline (PAMELOR) capsule 25 mg 25 mg Oral Nightly Juwan Smith MD 25 mg at 04/03/242124 ondansetron (ZOFRAN) injection 4 mg 4 mg Intravenous Q6H PRN Jennifer Lopez CNP 4 mg at 508 oxyCODONE-acetaminophen (PERCOCET) 5-325 mg per tablet 1 [...] SAMEER Juwan Smith MD 5 mL at 126 And sodium chloride 0.9% (NS) 0-150 mL/hr [...] mg total) by mouth daily . 90 tablet1 Taking citalopram (CELEXA) 40 MG tablet Take 1 (one) tablet (40 mg total) by mouth daily . 90 tablet 1 Taking insulin lispro (AdmeLOG,HumaLOG) 100 unit/mL injection Inject up to 150 units once daily via pump .50 mL 5 Taking INSULIN PUMP CARTRIDGE SUBQ Inject under the skin Use as directed . Taking lamoTRIgine (LAMICTAL) 25 MG tablet Take 1 (one) tablet (25 mg total) by mouth 2 (two) times a day . 60 tablet 2 Taking levETIRAcetam (KEPPRA) 1000 MG tablet Take 1 (one) tablet (1,000 mg total) by mouth 2 (two) times aday . 180 tablet 1 Taking levothyroxine (SYNTHROID, [...] mg total) by mouth 2 (two) times aday . 60 tablet 5 Taking metoprolol succinate [...] total) by mouth 2 (two) times a day. Taking oxyCODONE-acetaminophen (PERCOCET) 5-325 mg per tablet Take 1 (one) tablet by mouth nightly as needed for pain (Days supply per fill: 30) . 30 tablet 0 Taking As Needed pantoprazole (PROTONIX) 40 MG tablet Take 1 (one) tablet (40 mg total) by mouth daily . 90 tablet 1Taking pregabalin (LYRICA) 75 MG capsule Take 1 [...] Verio . 100 strip 5 Dexcom G6 Wide Area Network Engineer Mis Use as directed for continuous glucose [...] mg total) by mouth as needed for diarrhea(Max dose 7 pills) . 20 capsule 1 [...] Left Collected By: Shameka Castillo DPM 04/01/2024 5:12PM Release to patient Immediate TISSUE EXAM Amputation, Toe, Left Collected By: Shameka Castillo DPM 04/01/2024 5:11 PM Release to patient Immediate Imaging: ECG 12- Lead Result Date: 03/25/2024 Sinus tachycardia Possible Anterior infarct , age undetermined Abnormal ECG Confirmed by Inessa Rao MD ([id number]) on 03/25/2024 8:01:09 AM XR Toe(s) Left [...] FINDINGS: New erosive changes of the tip ofthe tuft of the 1st distal phalanx with [...] with the assessment and plan as documented. * Leticia Rajput MD - 04/03/2024 6:55 AM EST [facility] PROGRESS NOTE Assessment and Plan Addie Jean Baptiste is a 48 y.o. female patient of Stephany Pelayo PA-C with history of T2DM, HTN, bipolar disorder, and chronic back pain presented to [facility] on 03/25/2024 with left toe wound. 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 female patient of Stephany Pelayo PA-C with history of T2DM, HTN, bipolar disorder, and chronic back pain presented to [facility] on 03/25/2024 with left toe wound. Sepsis [...] night Blood sugar improving Diabetic diet Consult certified diabetes educator: Hypertension Hyperlipidemia Continue to hold SHAJI [...] 04/04 Patient requires continued hospitalization due to: Paralegal Internship request Discharge Location:home Quality Measures DVT Prophylaxis: [...] normal coloration Psych: normal mood and affect * Shameka Castillo, DPM - 04/01/2024 5:28 PM EST [facility] PROGRESS NOTE ASSESSMENT AND PLAN: Diabetes [...] with the patient and family if present. Discussedplan with other teams' providers. We discussed with [...] diagnostic recommendations. I explained discharge plans, including therequired post-hospitalization care, treatment, and services. All questions [...] 5.9* ALT U/L 11 AST U/L 11 * Misha Serrato MD - 04/01/2024 1:51 PM EST NEPHROLOGY PROGRESS [facility] Patient Name: Addie Jean Baptiste Admit Date: [id number] MR #: [id number] : 1975 Perpetual Assessment: Addie Jean Baptiste is a 48 y.o. female on hospital day 7 admitted for left toe pain and drainage We are asked to evaluate and manage SOLO on CKD . Impression and Plan: SOLO - due to volume mediated changes with component of ATN from hypotension and sepsis. Cr continueto show improvement. IVF has been heplock. UA [...] 9.1 PHOSPHORUS mg/dL 2.8 2.7 3.0 Urinalysis * Leticia Rajput MD - 04/01/2024 10:36 AM EST [facility] PROGRESS NOTE Assessment and Plan Addie Organ is a 48 y.o. female patient of Stephany Pelayo PA-C with history of T2DM, HTN, bipolar disorder, and chronic back pain presented to [facility] on 03/25/2024 with left toe wound. Sepsis [...] night Blood sugar improving Diabetic diet Consult certified diabetes educator: Hypertension Hyperlipidemia Continue to hold SHAJI [...] Patient states she is requested amputation per translator interpreter Objective BP 138/82 (BP Location: Left arm, [...] normal coloration Psych: normal mood and affect * Shanique Sarah Beth, LD - 03/31/2024 1:50 PM EST Nutrition Care Initial Assessment Reason for [...] pain Nutrition Related Allergies/Intolerances: latex Cultural or Mandaen Dietary Needs :No Cultural or Mandaen Dietary needs noted Patient/family comments:Deferred: Pt sleeping [...] Medications: Proton Pump Inhibitors (Chronic Use) Ene MUNROE Office [phone] * Floyd Castillo DPM - 03/31/2024 12:51 PM EST Images from the original note were not included. [facility] PROGRESS NOTE ASSESSMENT [...] consider amputation of her left hallux as ithas been a chronic recurrent issue. Essentially she has had chronic recurrent issues with his left hallux IPJ/ chronic wound. X-ray findings show possible osteomyelitis. Clinically this does not lookgrossly infected she does not have a white count but could be chronic in nature. At this point I told the patient I am not convinced there is bone infection will need an MRI to assess this. She states she is okay staying getting this done. She has a pacemaker so this may take some time. Will order M RI and follow-up. -- OR Plans: none - [...] with the patient and family if present. Discussedplan with other teams' providers. We discussed with [...] diagnostic recommendations. I explained discharge plans, including therequired post-hospitalization care, treatment, and services. All questions [...] mg 500 mg Oral Q12H Enrique Gonzales, [employer] ENG[employer] 500 mg at 03/31/24902 citalopram (CELEXA) tablet 40 mg 40 mg Oral Daily Juwan Smith MD 40 mg at 11/07/24 0903 enoxaparin (LOVENOX) syringe 40 mg 40 mg Subcutaneous BID Lowell Roberts [facility],PharmD 40 mg at 03/31/24902 insulin glargine (LANTUS) [...] mg 0.1 mg Intravenous PRN Floyd Rubin [facility],PharmD 0.1 mgat 03/28/24 0520 And naloxone (NARCAN) injection 0.4 mg 0.4 mg Intravenous PRN Floyd Rubin [facility],PharmD 0.4 mgat 03/26/24 2300 nicotine (NICODERM CQ) 14 mg/24 hr 1 patch 1 patch Transdermal Daily Maya Franklin PA-C 1 patch at 03/31/24902 nortriptyline (PAMELOR) capsule 25 mg 25 mg Oral Nightly Juwan Smith MD 25 mg at 03/30/242127 ondansetron (ZOFRAN) injection 4 mg 4 mg Intravenous Q6H PRN Jennifer Lopez CNP 4 mg at 508 oxyCODONE-acetaminophen (PERCOCET) 5-325 mg per tablet 1 [...] SAMEER Juwan Smith MD 5 mL at 618 And sodium chloride 0.9% (NS) 0-150 mL/hr Intravenous PRN Juwan Smith MD timolol (TIMOPTIC) 0.5 % ophthalmic solution 1 drop 1 drop Left Eye Daily Juwan Smith MD 1 drop at 03/31/24 0909 tiZANidine (ZANAFLEX) tablet 4 mg 4 mg Oral Nightly Juwan Smith MD 4 mg at 03/30/242132 traZODone (DESYREL) tablet 50 mg 50 mg [...] mg total) by mouth daily . 90 tablet1 Taking citalopram (CELEXA) 40 MG tablet Take 1 (one) tablet (40 mg total) by mouth daily . 90 tablet 1 Taking insulin lispro (AdmeLOG,HumaLOG) 100 unit/mL injection Inject up to 150 units once daily via pump .50 mL 5 Taking INSULIN PUMP CARTRIDGE SUBQ Inject under the skin Use as directed . Taking lamoTRIgine (LAMICTAL) 25 MG tablet Take 1 (one) tablet (25 mg total) by mouth 2 (two) times a day . 60 tablet 2 Taking levETIRAcetam (KEPPRA) 1000 MG tablet Take 1 (one) tablet (1,000 mg total) by mouth 2 (two) times aday . 180 tablet 1 Taking levothyroxine (SYNTHROID, [...] mg total) by mouth 2 (two) times aday . 60 tablet 5 Taking metoprolol succinate [...] total) by mouth 2 (two) times a day. Taking oxyCODONE-acetaminophen (PERCOCET) 5-325 mg per tablet Take 1 (one) tablet by mouth nightly as needed for pain (Days supply per fill: 30) . 30 tablet 0 Taking As Needed pantoprazole (PROTONIX) 40 MG tablet Take 1 (one) tablet (40 mg total) by mouth daily . 90 tablet 1Taking pregabalin (LYRICA) 75 MG capsule Take 1 [...] Verio . 100 strip 5 Dexcom G6 Wide Area Network Engineer Mis Use as directed for continuous glucose [...] mg total) by mouth as needed for diarrhea(Max dose 7 pills) . 20 capsule 1 [...] , vibratory, and proprioception sensations are: diminished. Achillesand patellar deep tendon reflexes intact. ORTHO: No [...] Abnormal ECG Confirmed by Inessa Rao MD ([id number]) on 03/25/2024 8:01:09 AM XR Toe(s) Left [...] FINDINGS: New erosive changes of the tip ofthe tuft of the 1st distal phalanx with [...] coordination of care and direct patient management. * Leticia Rajput MD - 03/31/2024 11:25 AM EST [facility] PROGRESS NOTE Assessment and Plan Addie Organ is a 48 y.o. female patient of Stephany Pelayo PA-C with history of T2DM, HTN, bipolar disorder, and chronic back pain presented to [facility] on 03/25/2024 with left toe wound. Right [...] cefadroxil p.o. 500 mg twice daily until 11/15 Podiatry following Pain control with Percocet SOLO [...] night Blood sugar improving Diabetic diet Consult certified diabetes educator: Hypertension Hyperlipidemia Continue to hold metoprolol [...] normal coloration Psych: normal mood and affect * Misha Serrato MD - 03/31/2024 10:35 AM EST NEPHROLOGY PROGR[facility] Patient Name: Addie Jean Baptiste Admit Date: [id number] MR #: [id number] : 1975 Perpetual Assessment: Addie Jean Baptiste is a 48 y.o. female on hospital day 6 admitted for left toe pain and drainage We are asked to evaluate and manage SOLO on CKD . Impression and Plan: SOLO - due to volume mediated changes with component of ATN from hypotension and sepsis. Cr continueto show improvement. IVF has been heplock. UA [...] sodium chloride (PF) 5 mL Intravenous Q8H [facility] timolol 1 drop Left Eye Daily tiZANidine [...] UR /hpf 5 BACTERIA, UR /hpf Rare* * Leticia Rajput MD - 03/30/2024 1:38 PM EST [facility] PROGRESS NOTE Assessment and Plan Addie Organ is a 48 y.o. female patient of Stephany Pelayo PA-C with history of T2DM, HTN, bipolar disorder, and chronic back pain presented to [facility] on 03/25/2024 with left toe wound. Sepsis [...] 30 units at night Diabetic diet Consult certified diabetes educator: Hypertension Hyperlipidemia Continue to hold metoprolol [...] normal coloration Psych: normal mood and affect * Misha Serrato MD - 03/30/2024 11:13 AM EST NEPHROLOGY PROGR[facility] Patient Name: Addie Jean Baptiste Admit Date: 10300628 MR #: [id number] : 1975 Perpetual Assessment: Addie Jean Baptiste is a 48 y.o. female on hospital day 5 admitted for left toe pain and drainage We are asked to evaluate and manage SOLO on CKD . Impression and Plan: SOLO - due to volume mediated changes with component of ATN from hypotension and sepsis. Cr continueto show improvement. IVF has been heplock. UA [...] last 7 days Lab Units 03/30/24 0549 03/29/2443003/28/24 0304 WBC K/mcL 6.90 7.18 7.07 HGB [...] UR /hpf 5 BACTERIA, UR /hpf Rare* * Avila Rajan PA-C - 03/30/2024 9:45 AM EST Images from the original note were not included. [facility] PROGRESS NOTE ASSESSMENT [...] Hernandez grade 2 ulceration does not probe tobone tunnel or track. Applied a Betadine gauze bandage dressing instructed on daily dressing changes. Suspected osteomyelitis left hallux distal tuft: I did review the patient's x- rays today and distalphalanx concerns. I question how extensive for how [...] shock this past weekend due to possible accidentalopioid overdose. Patient responded to Narcan and 1 [...] with the patient and family if present. Discussedplan with other teams' providers. We discussed with [...] diagnostic recommendations. I explained discharge plans, including therequired post-hospitalization care, treatment, and services. All questions [...] mg 30 mg Subcutaneous Daily Radha Castillo [facility],PharmD 30 mg at 03/29/242115 insulin glargine (LANTUS) [...] 0.1 mg 0.1 mg Intravenous PRN Floyd Rubin, [facility],PharmD 0.1 mgat 03/28/24 0520 And naloxone (NARCAN) injection 0.4 mg 0.4 mg Intravenous PRN Floyd Rubin, [facility],PharmD 0.4 mgat 03/26/24 2300 nortriptyline (PAMELOR) capsule 25 mg 25 mg Oral Nightly Juwan Smith MD 25 mg at 03/29/242113 ondansetron (ZOFRAN) injection 4 mg 4 mg Intravenous Q6H PRN Jennifer Lopez CNP 4 mg at 9 oxyCODONE-acetaminophen (PERCOCET) 5-325 mg per tablet 1 [...] SAMEER Juwan Smith MD 5 mL at 513 And sodium chloride 0.9% (NS) 0-150 mL/hr [...] mg total) by mouth daily . 90 tablet1 Taking citalopram (CELEXA) 40 MG tablet Take 1 (one) tablet (40 mg total) by mouth daily . 90 tablet 1 Taking insulin lispro (AdmeLOG,HumaLOG) 100 unit/mL injection Inject up to 150 units once daily via pump .50 mL 5 Taking INSULIN PUMP CARTRIDGE SUBQ Inject under the skin Use as directed . Taking lamoTRIgine (LAMICTAL) 25 MG tablet Take 1 (one) tablet (25 mg total) by mouth 2 (two) times a day . 60 tablet 2 Taking levETIRAcetam (KEPPRA) 1000 MG tablet Take 1 (one) tablet (1,000 mg total) by mouth 2 (two) times aday . 180 tablet 1 Taking levothyroxine (SYNTHROID, [...] mg total) by mouth 2 (two) times aday . 60 tablet 5 Taking metoprolol succinate [...] total) by mouth 2 (two) times a day. Taking oxyCODONE-acetaminophen (PERCOCET) 5-325 mg per tablet Take 1 (one) tablet by mouth nightly as needed for pain (Days supply per fill: 30) . 30 tablet 0 Taking As Needed pantoprazole (PROTONIX) 40 MG tablet Take 1 (one) tablet (40 mg total) by mouth daily . 90 tablet 1Taking pregabalin (LYRICA) 75 MG capsule Take 1 [...] Verio . 100 strip 5 Dexcom G6 Wide Area Network Engineer Misc Use as directed for continuous glucose [...] mg total) by mouth as needed for diarrhea(Max dose 7 pills) . 20 capsule 1 [...] , vibratory, and proprioception sensations are: diminished. Achillesand patellar deep tendon reflexes intact. ORTHO: No [...] Abnormal ECG Confirmed by Inessa Rao MD ([id number]) on 03/25/2024 8:01:09 AM XR Toe(s) Left [...] FINDINGS: New erosive changes of the tip ofthe tuft of the 1st distal phalanx with [...] Castillo DPM at 03/30/2024 4:43 PM EST * Misha Serrato MD - 03/29/2024 2:46 PM EST NEPHROLOGY PROGR[facility] Patient Name: Addie Jean Baptiste Admit Date: 10300628 MR #: [id number] : 1975 Perpetual Assessment: Addie Jean Baptiste is a 48 y.o. female on hospital day 4 admitted for left toe pain and drainage We are asked to evaluate and manage SOLO on CKD . Impression and Plan: SOLO - due to volume mediated changes with component of ATN from hypotension and sepsis. Cr did showimprovement. IVF has been heplock. UA and Ucx [...] from last 7 days Lab Units 03/29/24 04303/28/24 03003/27/24433 WBC K/mcL 7.18 7.07 7.80 HGB g/dL 8.8* 9.2* 9.6* HCT % 28.0* 29.5* 30.8* PLT K/mcL 264 282 308 Results from last 7 days Lab Units 03/29/24 04303/28/24 03003/27/24433 SODIUM mmol/L 137 137 140 POTASSIUM mmol/L [...] UR /hpf 5 BACTERIA, UR /hpf Rare* * Leticia Rajput MD - 03/29/2024 10:33 AM EST [facility] PROGRESS NOTE Assessment and Plan Addie Jean Baptiste is a 48 y.o. female patient of Stephany Pelayo PA-C with history of T2DM, HTN, bipolar disorder, and chronic back pain presented to [facility] on 03/25/2024 with left toe wound. Sepsis [...] 20u at night today Diabetic diet Consult certified diabetes educator: Hypertension Hyperlipidemia Continue to hold metoprolol [...] normal coloration Psych: normal mood and affect * Leticia Rajput MD - 03/28/2024 1:37 PM EST [facility] PROGRESS NOTE Assessment and Plan Addie Organ is a 48 y.o. female patient of Stephany Pelayo PA-C with history of T2DM, HTN, bipolar disorder, and chronic back pain presented to [facility] on 03/25/2024 with left toe wound. Hypotension [...] to continue insulin pump Diabetic diet Consult certified diabetes educator: Admits that she has not been [...] normal coloration Psych: normal mood and affect * Misha Serrato MD - 03/28/2024 12:53 PM EST NEPHROLOGY PRO[facility] Patient Name: Addie Jean Baptiste Admit Date: [id number] MR #: [id number] : 1975 Perpetual Assessment: Addie Jean Baptiste [...] last 7 days Lab Units 03/28/24 0304 03/27/244 03/25/24 0550 WBC K/mcL 7.07 7.80 8.66 HGB g/dL 9.2* 9.6* 10.2* HCT % 29.5* 30.8* 29.7* PLT K/mcL 282 308 297 Results from last 7 days Lab Units 03/28/24 03003/27/2443303/26/24 2306 SODIUM mmol/L 137 140 137 POTASSIUM [...] UR /hpf 5 BACTERIA, UR /hpf Rare* * Avila Rajan PA-C - 03/28/2024 9:08 AM EST [facility] PROGRESS NOTE ASSESSMENT [...] distal tuft: I did review the patient's x- rays today and distal. I question how extensive [...] shock this past weekend due to possible accidentalopioid overdose. Patient responded to Narcan and 1 [...] with the patient and family if present. Discussedplan with other teams' providers. We discussed with [...] diagnostic recommendations. I explained discharge plans, including therequired post-hospitalization care, treatment, and services. All questions [...] 30 mg Subcutaneous Daily Radha Castillo RPh,PharmD insulin lispro (AdmeLOG,HumaLOG) injection 0-15 Units 0-15 [...] mg Intravenous PRN Floyd Rubin RPh,PharmD 0.1 mgat 03/28/24 0520 And naloxone (NARCAN) injection 0.4 mg 0.4 mg Intravenous PRN Floyd Rubin [facility],PharmD 0.4 mgat 03/26/24 2300 nortriptyline (PAMELOR) capsule 25 mg 25 mg Oral Nightly Juwan Smith MD 25 mg at 03/27/242019 ondansetron (ZOFRAN) injection 4 mg 4 mg Intravenous Q6H PRN Jennifer Lopez CNP 4 mg at 6 oxyCODONE-acetaminophen (PERCOCET) 5-325 mg per tablet 1 [...] SAMEER Juwan Smith MD 5 mL at 325 And sodium chloride 0.9% (NS) 0-150 mL/hr [...] 4 mg 4 mg Oral Nightly Juwan Smiht MD 4 mg at 03/27/242019 traZODone (DESYREL) [...] mg total) by mouth daily . 90 tablet1 Taking citalopram (CELEXA) 40 MG tablet Take 1 (one) tablet (40 mg total) by mouth daily . 90 tablet 1 Taking insulin lispro (AdmeLOG,HumaLOG) 100 unit/mL injection Inject up to 150 units once daily via pump .50 mL 5 Taking INSULIN PUMP CARTRIDGE SUBQ Inject under the skin Use as directed . Taking lamoTRIgine (LAMICTAL) 25 MG tablet Take 1 (one) tablet (25 mg total) by mouth 2 (two) times a day . 60 tablet 2 Taking levETIRAcetam (KEPPRA) 1000 MG tablet Take 1 (one) tablet (1,000 mg total) by mouth 2 (two) times aday . 180 tablet 1 Taking levothyroxine (SYNTHROID, [...] mg total) by mouth 2 (two) times aday . 60 tablet 5 Taking metoprolol succinate [...] total) by mouth 2 (two) times a day. Taking oxyCODONE-acetaminophen (PERCOCET) 5-325 mg per tablet Take 1 (one) tablet by mouth nightly as needed for pain (Days supply per fill: 30) . 30 tablet 0 Taking As Needed pantoprazole (PROTONIX) 40 MG tablet Take 1 (one) tablet (40 mg total) by mouth daily . 90 tablet 1Taking pregabalin (LYRICA) 75 MG capsule Take 1 [...] Verio . 100 strip 5 Dexcom G6 Wide Area Network Engineer Mis Use as directed for continuous glucose [...] mg total) by mouth as needed for diarrhea(Max dose 7 pills) . 20 capsule 1 [...] Abnormal ECG Confirmed by Inessa Rao MD ([id number]) on 03/25/2024 8:01:09 AM XR Toe(s) Left [...] FINDINGS: New erosive changes of the tip ofthe tuft of the 1st distal phalanx with [...] with the assessment and plan as documented. * Julia Hendrix DO - 03/27/2024 12:08 PM EST [facility] PROGRESS NOTE Assessment and Plan Addie Jean Baptiste is a 48 y.o. female patient of Stephany Pelayo PA-C with history of T2DM, HTN, bipolar disorder, and chronic back pain presented to [facility] on 03/25/2024 with left toe wound. Hypotension, [...] to continue insulin pump Diabetic diet Consult certified diabetes educator: Admits that she has not been [...] Ht 5' 2 Wt 120.5 kg (265 lb10.5 oz) SpO2 97% BMI 48.59 kg/m Physical [...] normal coloration Psych: normal mood and affect * Fawn Hinton - 03/27/2024 10:40 AM EST Spiritual Care Progress Note Completed by: Fawn [...] services and availability. Rev. Fawn Hinton MDiv, [facility] Staff Store Sales ManagerVelia Oscar Patients Response to Pastoral Care: Appeared to be well-engaged Planning for Future Visits: PRN 03/27/24 1040 Visit Background Visit With Patient Visit By Staff Store Sales Manager Visit Progression Introduction Visit Requested By Store Sales Manager Initiated Visit Source Store Sales Manager Initiated Visit Type Inpatient;Rounding Visit Circumstances and Events Routine Visit Visit Length (minutes) 30 Patient's Response to Pastoral Care Appeared to be well-engaged Visit Planning PRN Spiritual Assessment Assessed during this visit Mandaen Assessment Not assessed during this visit Family assessment provided? Not assessed during this visit Patient Spiritual Needs Assessment Sources of Connection Daughter;Granddaughter;Grandson;Son Belief Practices Not Discussed Coping Mechanisms Family Support Spiritual Diagnosis Disconnected from Sources of Support Facilitated Interventions Active Listening;Explained Role of the Store Sales Manager;Goal Setting Spiritual/Emotional Outcomes Appears less anxious;Appears more calm * Valeri Cadena RN - 03/27/2024 9:44 AM EST 0810-Sleeps. Wakens to voice. Drowsy and lethargic [...] [employer] to eat and left. Respirations easy. O2on. Monitor SR. VSS. SL intact. Port-a-cath accessed for IVF as ordered. ATB infuses. Given prn percocet. Assessment unchanged. No acute distress noted. 1700-Sleeps. 1815-Rests quietly watching TV. Respirations easy. O2 on. Monitor SR with FDAVB, VSS. Video chatting with family. Denies needs. * Shameka Castillo DPM - 03/26/2024 11:21 AM EDT [facility] PROGRESS NOTE ASSESSMENT AND PLAN: Diabetes [...] distal tuft: I did review the patient's x- rays today and distal. I question how extensive [...] with the patient and family if present. Discussedplan with other teams' providers. We discussed with [...] diagnostic recommendations. I explained discharge plans, including therequired post-hospitalization care, treatment, and services. All questions [...] ALT U/L 16 AST U/L 16 * Jennifer Lopez, BEATRIZ - 03/26/2024 8:33 AM EDT [facility] PROGRESS NOTE Assessment and Plan Addie Organ is a 48 y.o. female patient of Stephany Pelayo PA-C with history of T2DM, HTN, bipolar disorder, and chronic back pain presented to [facility] on 03/25/2024 with left toe wound. Left [...] to continue insulin pump Diabetic diet Consult certified diabetes educator: Admits that she has not been [...] normal coloration Psych: normal mood and affect * Floyd Rubin RPh,PharmD - 03/25/2024 4:17 AM EDT PHARMACOTHERAPY NOTE: Antimicrobial Therapy Initiation Assessment / [...] MRSA (methicillin resistant Staphylococcus aureus) Pacemaker Seizures ([facility]) Stroke ([facility]) Objective: Estimated Creatinine Clearance: 38.6 mL/min (A) [...] (H) 12/09/2014 5.50 (H) Pharmacist: Floyd Rubin [facility],PharmD Contact Number: [phone] * Yuriy Wheeler RN - 03/25/2024 3:56 AM EDT Spoke with MD regarding right chest port. Order received to draw labs from port. * Yuriy Wheeler RN - 03/25/2024 2:15 AM EDT Spoke with MD regarding pt's home insulin pump (omnipod) and current blood glucose level. Blood sugar currently 469. MD was made aware. SSI noted to be ordered. MD states we will have pharmacy obtainhome pump information prior to administering SSI coverage. Pharmacy on floor to verify pump/home insulin at this time. Care continues. * Yuriy Wheeler RN - 03/25/2024 1:38 AM EDT Pt arrived to unit. Resting in bed without sign of distress. Care continues. documented in this [id number] Miscellaneous Notes* Plan of Care - Ifeoma Waterman RN - 04/04/2024 9:21 AM EST Problem: Actual or potential alteration in health [...] Absence of pressure injury Outcome: Partially Met * Plan of Care - Nicolette Coffey RN - 04/02/2024 10:44 AM EST Problem: Actual or potential alteration in health Goal: Absence of healthcare acquired conditions Outcome: Partially Met Goal: Knowledge of Interdisciplinary Plan of Care Outcome: Partially Met Goal: Knowledge of Enviroment Outcome: Partially Met * Plan of Care - Ruby Lujan RN - 04/02/2024 4:20 AM EST Problem: Actual or potential alteration in health [...] Absence of pressure injury Outcome: Not Met * Op Note - Shameka Castillo DPM - 04/01/2024 4:59 PM EST Operative Note Patient Name: Addie Jean Baptiste : 1975 (48 y.o.) Date of Service: 04/01/2024 CSN: [id number] Procedure(s): AMPUTATION LEFT HALLUX IPJ Pre-Operative Diagnoses: * osteomyelitis Post-Operative Diagnoses: * Same as Pre-Op Diagnosis Surgeons and Role: * Shameka Castillo DPM - Primary Anesthesiologist: Mk [place] MD GROUND [employer]ODUCTS DIRECTOR: Monique Palomares CRNA Hypertrichologist: Agueda Hunt RN Scrub Person: Monique Cheatham [...] 0821 Wound Length (cm) 1 cm 03/29/24 09 Wound Width (cm) 1 cm 03/29/24 09 Wound Surface Area (cm^2) 1 cm^2 03/29/24 09 Area % Change 0 03/29/24928 Wound Progress Initial exam 03/29/24928 Drainage Amount Scant 03/31/241933 Drainage Description Red 03/31/241933 Odor None 03/31/241933 Wound Bed Characteristics Red;Scab 03/31/241933 Gema-wound Assessment Temperature WNL 03/31/24 1934 Cleansed Betadine 03/31/24 193 Primary Dressing Dry gauze 03/31/241933 Secondary Dressing Dry gauze 03/31/24 193 Compression Dressing Other (Comment) 03/31/24 1934 Wound 01/13/24 Abdomen LLQ (Active) Reassessment Unchd [...] administered to the operative ankle. The foot wasprepped and draped in the usual sterile manner. The foot was exsanguinated with an Esmarch tourniquet. Attention was directed to the LEFT great toe. A fishmouth shaped incision was made distal to the interphalangeal joint. Meticulous dissection performed on the level of the bone taking care to preserve neurovascular structures. Using a combination of blunt and sharp dissection the distal phalanx wasdissected free from the surrounding tissue and disarticulated [...] released and a hyperemic response was noted allskin edges. The foot was cleansed and dried. A sterile Betadine postoperative dressing was applied for foot. The patient tolerated the procedure well and was transferred to PACU vital signs stable and vascular status intact Shameka Castillo DPM 04/01/2024 5:23 PM * Plan of Care - Ifeoma Waterman RN - 04/01/2024 8:29 AM EST Problem: Actual or potential alteration in health [...] Absence of physical injury Outcome: Partially Met * Plan of Care - Agapito Bland RN - 04/01/2024 6:12 AM EST Problem: Actual or potential alteration in health [...] Absence of pressure injury Outcome: Partially Met * Quick Note - Shameka Castillo DPM - 03/31/2024 4:56 PM EST I had an opportunity speak with Dr. Floyd Castillo about the patient's case. I then did speak personally with the patient later that evening and discussed with her an option toamputate the toe at the IPJ level. Patient is agreeable and we will not perform the MRI. CT without contrast ordered Plan for amputation left hallux IPJ tomorrow evening. N.p.o. at midnight * Sign Off Note - Enrique Anthony CNP - 03/30/2024 1:56 PM EST Infectious Disease Sign-Off Indication: DFI Antibiotic: cefadroxil [...] be reassessed. Enrique Anthony CNP [facility] - Infectious Diseases Office: [phone] * Quick Note - Radha Parikh RN - 03/29/2024 10:29 AM EST Attempted to call report and phone was ringing then a busy signal/. I will attempt call again * Plan of Care - Pebbles Valverde RN - 03/29/2024 6:06 AM EST Problem: Actual or potential alteration in health [...] Absence of pressure injury Outcome: Partially Met * Quick Note - Juan Butler RN - 03/27/2024 9:17 AM EST Attempted to call all 3 family members on contact list with no response, Pt updated. * Felicia Note - Angella Lucio RN - 03/27/2024 7:11 AM EST Called and left a message for daughter Mely to inform her Addie was transferred to ICU. Informed her she could call her mom to get more information . * Plan of Care - Angella Lucio RN - 03/27/2024 12:09 AM EDT Problem: Pain Goal: Able to achieve maximum level of physical functioning Outcome: Partially Met Problem: Pain Goal: Reduced pain sensation Outcome: Partially Met * Quick Note - Angella Lucio RN - 03/26/2024 11:54 PM EDT Notified [facility]/Dr Brar that patient's BP was 71/46 with slurred speech and Blood sugar of 348. Dr Brar came to the floor and seen patient. See new orders. * Significant Event - John Solis MD - 03/26/2024 11:02 PM EDT [facility] Significant Event Note Reason for Call: Hypotension [...] ill patient included review of interval history, laboratories,radiology and consultation reports; performing a physical examination; discussing patient with the care team and managing life sustaining therapies to prevent imminent clinical deterioration. John Brar MD 03/27/24, 12:18 AM * Plan of Care - Danielle Boykin RN - 03/26/2024 7:36 AM EDT Problem: Actual or potential alteration in health [...] Absence of physical injury Outcome: Partially Met * Quick Note - Jennifer Lopez CNP - 03/25/2024 8:52 AM EDT Hyperglycemia - admitting glucose 646 HgbA1c 9.9 Consult certified diabetes educator Lactic acidosis LA 3.0 - 2.1 IVF in the ED * Plan of Care - Latoya Spencer RN - 03/25/2024 8:27 AM EDT Problem: Actual or potential alteration in health [...] falls; call light within reach, overbed table atside, non-skid socks in place, reinforced need to call for assistance and bed exit alarm active Goal: Absence of physical injury Outcome: Partially Met * Plan of Care - Yuriy Wheeler RN - 03/25/2024 5:03 AM EDT Problem: Actual or potential alteration in health Goal: Absence of healthcare acquired conditions Outcome: Partially Met Goal: Knowledge of Interdisciplinary Plan of Care Outcome: Partially Met Goal: Knowledge of Enviroment Outcome: Partially Met Problem: Pain Goal: Reduced pain sensation Outcome: Partially Met documented in this [id number] [facility] 04-02-2024 [facility]11-08-2024 [facility] 04-01-2024 [facility]11-08-2024 [facility] 03-31-2024 [facility]11-07-2024 Consult note* Kat Baldwin MSW [employer] SUPERVISOR - 03/31/2024 11:37 AM ESTAssociated Order(s): IP CONSULT TO CARE MANAGEMENT Care [...] Home Equipment: Cane, 07/23 Commode, Hospital bed * Lucie Hoang, PT - 03/31/2024 10:10 AM EST Physical Therapy PHYSICAL THERAPY SCREEN Patient was screened by Physical Therapy. Upon review of the chart and discussion with the nurse, no skilled Physical Therapy intervention is indicated. Order discontinued at this time. * Enrique Anthony CNP - 03/30/2024 10:54 AM ESTAssociated Order(s): Inpatient consult to Infectious Diseases INFECTIOUS DISEASE CONSULT NOTE ASSESSMENT: Addie Jean Baptiste is a 48 y.o. female has a past medical history of Anxiety, Bipolar 1 disorder ([facility]), Chronic back pain, Chronic kidney disease, stage 3 unspecified ([facility]), Coronary artery disease, Depression, Diabetes mellitus ([facility]), Hypertension, MRSA (methicillin resistant Staphylococcus aureus), Pacemaker, Seizures ([facility]), and Stroke ([facility]). Left DFI with ?OM: podiatry following with [...] or discussed with Dr. Bean Anthony CNP [facility] - Infectious Diseases Office: [phone] Inpatient consult to Infectious Diseases Consult performed by: Enrique Anthony CNP Consult ordered by: Leticia Rajput MD Reason for consult: osteo big toe Chief Complaint: Toe pain HPI: Addie Jean Baptiste is a 48 y.o. female has a past medical history of Anxiety, Bipolar 1 disorder ([facility]), Chronic back pain, Chronic kidney disease, stage 3 unspecified ([facility]), Coronary artery disease, Depression, Diabetes mellitus ([facility]), Hypertension, MRSA (methicillin resistant Staphylococcus aureus),Pacemaker, Seizures ([facility]), and Stroke ([facility]). . She presented on 03/24/2024 with toe pain. Patient has had a recurring wound to the distal aspect of the left great toe over the last 5 years.She says 5 years ago she was walking and believes it may be related to her shoes. She does not weardiabetic shoes. She states that the wound will come and go. The more she walks the more recurrence issues she has. States about a week ago the wound developed and she started to have redness and swelling of the toe that was bleeding. She came to the hospital mostly because she was concerned becauseof the discomfort she was experiencing. She denies [...] that she is not having any associate abdominaldiscomfort with this. Today she is overall feeling [...] mg total) by mouth daily . 90 tablet1 Taking citalopram (CELEXA) 40 MG tablet Take 1 (one) tablet (40 mg total) by mouth daily . 90 tablet 1 Taking insulin lispro (AdmeLOG,HumaLOG) 100 unit/mL injection Inject up to 150 units once daily via pump .50 mL 5 Taking INSULIN PUMP CARTRIDGE SUBQ Inject under the skin Use as directed . Taking lamoTRIgine (LAMICTAL) 25 MG tablet Take 1 (one) tablet (25 mg total) by mouth 2 (two) times a day . 60 tablet 2 Taking levETIRAcetam (KEPPRA) 1000 MG tablet Take 1 (one) tablet (1,000 mg total) by mouth 2 (two) times aday . 180 tablet 1 Taking levothyroxine (SYNTHROID, [...] mg total) by mouth 2 (two) times aday . 60 tablet 5 Taking metoprolol succinate [...] total) by mouth 2 (two) times a day. Taking oxyCODONE-acetaminophen (PERCOCET) 5-325 mg per tablet Take 1 (one) tablet by mouth nightly as needed for pain (Days supply per fill: 30) . 30 tablet 0 Taking As Needed pantoprazole (PROTONIX) 40 MG tablet Take 1 (one) tablet (40 mg total) by mouth daily . 90 tablet 1Taking pregabalin (LYRICA) 75 MG capsule Take 1 [...] Verio . 100 strip 5 Dexcom G6 Wide Area Network Engineer Mis Use as directed for continuous glucose [...] mg total) by mouth as needed for diarrhea(Max dose 7 pills) . 20 capsule 1 [...] distal phalanx. Workstation ID: [id number] Cosigned by Raul Del Angel DO at 03/30/2024 2:25 PM EST Associated attestation - Raul Del Angel DO - 03/30/2024 2:25 PM EST I have independently seen and evaluated this patient and discussed the plan with Sheng Anthony CNP.I have reviewed all of the pertinent history, [...] her with wound healing in the future Raul Del Angel DO 2:23 PM 03/30/2024 OPG-ID * Lucina Henry RN - 03/29/2024 9:30 AM ESTAssociated Order(s): IP CONSULT TO ENTEROSTOMAL THERAPY Consulted to see patient for left great toe ulcer. Removed dressing. Small amount of fresh blood noted. Cleansed with soap and water. Measures a 1cm x 1cm. Wound bed is red and bleeding. Gema wound is dry and intact. Swabbed with betadine and covered with a bandaid. Wound care orders placed. * Misha Serrato MD - 03/27/2024 2:40 PM ESTAssociated Order(s): IP CONSULT TO NEPHROLOGY NEPHROLOGY CONSULTATION [facility] Patient Name: Addie Jean Baptiste MR #: [id number] : 1975 Requesting provider: hospitalist Reason for [...] cont on zosyn. Will check kidney ultrasound, andCPK. Continue to avoid nephrotoxic agents CKD stage [...] mg total) by mouth 2 (two) times aday . levothyroxine (SYNTHROID, LEVOTHROID) 75 MCG tablet [...] mg total) by mouth 2 (two) times aday . metoprolol succinate (TOPROL-XL) 50 MG 24 [...] total) by mouth 2 (two) times a day. oxyCODONE-acetaminophen (PERCOCET) 5-325 mg per tablet Take [...] sugar. One Touch Verio . Dexcom G6 Wide Area Network Engineer Misc Use as directed for continuous glucose [...] mg total) by mouth as needed for diarrhea(Max dose 7 pills) . miscellaneous medical supply [...] AND sodium chloride (PF) AND sodium chloride (PF)AND sodium chloride 0.9 %, traZODone Allergies: I have reviewed the patient's allergies. Iodides, Ketorolac, Tramadol, Codeine, Propoxyphene n-acetaminophen, Adhesive, Compazine [prochlorperazine], Ct: iodinated contrast- oral and iv dye, Fentanyl, Ibuprofen, Latex, Linezolid, Lorazepam,Nsaids (non-steroidal anti-inflammatory drug), Vancomycin, and Propoxyphene Review of Systems: [x] CV, Resp, GI, Neuro, and all other systems reviewed and negative other than listed in HPI. [] Unable to obtain due to intubation and/or neurologic status. Objective Findings: Vitals:BP (!) 80/62 Pulse 94 Temp 98.8 F (37.1 C) (Oral) Resp (!) 10 Ht 5' 2 Wt 120.5 kg(265 lb 10.5 oz) SpO2 97% BMI 48.59 [...] I have reviewed Progress Notes in the [facility] EHR and CareEverywhere. [x] I have interpreted/reviewed lab tests and radiography data in the [facility] EHR. [x] I have discussed the case with the primary service. [x] I have ordered appropriate tests/labs Comments: Thank you for allowing us to participate in the care of this patient. We will continue to follow. Please call if questions or concerns arise. * Merrick Almanza MD - 03/27/2024 12:12 PM ESTAssociated Order(s): IP CONSULT TO EXTERIOR INTERIOR SPECIALIST Critical Care Consult Note Reason for Consultation: [...] any acute issues, though she asks when hernext pain pill is due. Notified by RN [...] and iv dye, Fentanyl, Ibuprofen, Latex, Linezolid, Lorazepam,Nsaids (non-steroidal anti-inflammatory drug), Vancomycin, and Propoxyphene Select home or hospital medications: Prior to Admission medications Medication Sig Start Date End Date Taking? Authorizing Provider albuterol (PROVENTIL) 2.5 mg /3 mL (0.083 %) nebulizer solution Take 3 mL (2.5 mg total) by nebulization every 6 (six) hours as needed for wheezing or shortness of breath . 12/10/23 Yes Mary Pelayo PA-C albuterol 90 mcg/actuation inhaler Inhale 1 (one) puff every 4 to 6 hours as needed for shortness of breath or wheezing . 12/01/23 Yes Stephany Pelayo PA-C atorvastatin (LIPITOR) 40 MG tablet Take 1 (one) tablet (40 mg total) by mouth nightly . 01/27/24 Rafaela Vega CNP busPIRone (BUSPAR) 30 MG tablet Take [...] to 150 units once daily via pump .12/08/23 Yes Sahara Sanchez MD INSULIN PUMP CARTRIDGE SUBQ Inject under the skin Use as directed . Yes Manuel Cardona MD lamoTRIgine (LAMICTAL) 25 MG tablet Take 1 (one) tablet (25 mg total) by mouth 2 (two) times a day . 02/08/24 Yes Zoë Garcia MD levETIRAcetam (KEPPRA) 1000 MG tablet Take 1 (one) tablet (1,000 mg total) by mouth 2 (two) times aday . 01/13/23 Yes Fab Head MD levothyroxine [...] mg total) by mouth 2 (two) times aday . 01/27/24 07/25/24 Yes Rafaela Medrano CNP metoprolol succinate (TOPROL-XL) 50 MG 24 hr tablet Take 1 (one) tablet (50 mg total) by mouth daily . 01/27/24 07/25/24 Yes Rafaela Medrano CNP nortriptyline (PAMELOR) 25 MG capsule Take 1 (one) capsule (25 mg total) by mouth nightly . 02/11/24Yes Stephany Pelayo PA-C nystatin (MYCOSTATIN) powder Apply topically 2 (two) times a day . 03/22/24 03/22/25 Yes Stephany Pelayo PA-C omeprazole (PRILOSEC) 40 MG capsule Take 1 (one) capsule (40 mg total) by mouth 2 (two) times a day. Yes ProviderManuel MD oxyCODONE-acetaminophen (PERCOCET) 5-325 mg per tablet Take 1 (one) tablet by mouth nightly as needed for pain (Days supply per fill: 30) . 03/24/24 04/23/24 Yes Jim Velez, pantoprazole (PROTONIX) 40 MG tablet Take 1 (one) tablet (40 mg total) by mouth daily . 02/11/24 YesStephany Pelayo PA-C pregabalin (LYRICA) 75 MG capsule [...] 12/08/23 06/05/24 Sahara Sanchez MD Dexcom G6 Wide Area Network Engineer Misc Use as directed for continuous glucose [...] mg total) by mouth as needed for diarrhea(Max dose 7 pills) . 03/22/24 Stephany Pelayo PA-C miscellaneous medical supply Misc 1 each by Miscellaneous route daily . 12/10/23 Stephany Pelayo PA-C Omnipod 5 G6 Pods, Gen 5, Crtg 01/29/24 ProviderManuel MD Omniplion Insulin Refill Crtg 04/16/20 ProviderManuel MD ondansetron (ZOFRAN-ODT) 4 MG disintegrating tablet [...] see assessment and plan for further details. * Zayda Dorantes RN - 03/25/2024 12:18 PM EDTAssociated Order(s): IP CONSULT TO RAILROAD PURCHASING AGENT; IP CONSULT TO RAILROAD PURCHASING AGENT Admission Dx: Reviewed H&P, Chart Review and [...] and do what I should do . * Lucina Henry, RN - 03/25/2024 10:31 AM EDTAssociated Order(s): IP CONSULT TO ENTEROSTOMAL THERAPY Consulted to see patient for her LLQ. Removed old dressing with scant amount of fresh blood noted. Cleansed with soap and water. Wound bed is bleeding and gema wound is red. Patient states she has slight pain when touching the area. States she has had this area since December of this year. States herbriefs rub the area raw. Measures a 1cm x 1cm. Applied medical honey and covered with a band-aid per patients request. Wound care orders placed. * Shameka Castillo DPM - 03/25/2024 8:47 AM EDTAssociated Order(s): IP CONSULT TO PODIATRY Images from [...] x 3 mm Hernandez grade 2 ulceration doesnot probe to bone tunnel or track. Deep tissue culture taken sent for culture and sensitivities. Applied a Betadine gauze bandage dressing instructed on daily dressing changes. Suspected osteomyelitis right hallux distal tuft: I did review the patient's x- rays today and distal. I question how extensive [...] with the patient and family if present. Discussedplan with other teams' providers. We discussed with [...] diagnostic recommendations. I explained discharge plans, including therequired post-hospitalization care, treatment, and services. All questions [...] right hallux distal tuft. The patient presented withhyperglycemia DKA and is undergoing treatment for this. The patient denies nausea, fever, vomiting,chills or shortness of breath. PODIATRIC HISTORY AND [...] , vibratory, and proprioception sensations are: diminished. Achillesand patellar deep tendon reflexes intact. ORTHO: No [...] FINDINGS: New erosive changes of the tip ofthe tuft of the 1st distal phalanx with [...] DRUG/FOOD ALLERGIES: Iodides, Ketorolac, Tramadol, Codeine, Propoxyphene n- acetaminophen, Adhesive,Compazine [prochlorperazine], Ct: iodinated contrast- oral and iv dye, Fentanyl, Ibuprofen, Latex, Linezolid, Lorazepam, Nsaids (non- steroidal anti-inflammatory drug), Vancomycin, and Propoxyphene MEDICATIONS: Current [...] BID Juwan Smith MD 25 mg at 03/25/24 08 levothyroxine (SYNTHROID, LEVOTHROID) tablet 75 mcg 75 mcg Oral Daily Juwan Smith MD 75 mcg at 03/25/24 0521 lisinopriL (PRINIVIL,ZESTRIL) tablet 40 mg 40 mg Oral Daily with lunch Juwan Smith MD metoprolol succinate (TOPROL-XL) 24 hr tablet 50 mg 50 mg Oral Daily Juwan Smith MD naloxone (NARCAN) injection 0.1 mg 0.1 mg Intravenous PRN Floyd Rubin [facility],PharmD And naloxone (NARCAN) injection 0.4 mg 0.4 mg Intravenous PRN Floyd Rubin, [facility],PharmD nortriptyline (PAMELOR) capsule 25 mg 25 mg [...] this for BASAL RATE DOCUMENTATIONS) Miscellaneous Q12H Juwan Suero MD And Subcutaneous Insulin Pump (NURSING: Use this for BOLUS [Prandial and Corrective] DOCUMENTATIONS) Miscellaneous 4x daily before meals and nightly Juwan Smith MD 10.1 Units at 03/25/24 0730 timolol (TIMOPTIC) 0.5 % ophthalmic solution 1 drop 1 drop Left Eye Daily Juwan Smith MD 1 drop at 03/25/24 0835 tiZANidine (ZANAFLEX) tablet 4 mg 4 mg Oral Nightly Juwna Smith MD 4 mg at 03/25/24 0334 traZODone (DESYREL) tablet 50 mg 50 mg Oral Nightly PRN Juwan Smith MD vancomycin (VANCOCIN) 1250 mg in dextrose 5 % 250 mL 1,250 mg Intravenous Q24H Floyd Rubin, [facility],PharmD Medications Prior to Admission Medication Sig Dispense [...] mg total) by mouth daily . 90 tablet1 citalopram (CELEXA) 40 MG tablet Take 1 (one) tablet (40 mg total) by mouth daily . 90 tablet 1 Dexcom G6 Wide Area Network Engineer Misc Use as directed for continuous glucose [...] to 150 units once daily via pump .50 mL 5 lamoTRIgine (LAMICTAL) 25 MG tablet Take 1 (one) tablet (25 mg total) by mouth 2 (two) times a day . 60 tablet 2 lancets Misc 1 Lancet by Miscellaneous route 3 (three) times a day . 100 each 5 levETIRAcetam (KEPPRA) 1000 MG tablet Take 1 (one) tablet (1,000 mg total) by mouth 2 (two) times aday . 180 tablet 1 levothyroxine (SYNTHROID, LEVOTHROID) [...] mg total) by mouth as needed for diarrhea(Max dose 7 pills) . 20 capsule 1 loratadine (CLARITIN) 10 mg tablet Take 1 (one) tablet (10 mg total) by mouth daily . 90 tablet 1 metFORMIN (GLUCOPHAGE) 1000 MG tablet Take 1 (one) tablet (1,000 mg total) by mouth 2 (two) times aday . 60 tablet 5 metoprolol succinate (TOPROL-XL) [...] total) by mouth 2 (two) times a day. Omnipod 5 G6 Pods, Gen 5, Crtg [...] 0 Shameka Castillo DPM documented in this [id number] [facility] 03-31-2024 [facility]11-06-2024 History of Present illness Narrative* Maite Adams LPN - 03/30/2024 2:52 PM EST [facility] prescription request form complete for Omnipod / faxed documented in this [id number] [facility] 03-30-2024 [facility]11-06-2024 [facility] 03-29-2024 [facility]11-05-2024 [facility] 03-28-2024 [facility]11-04-2024 [facility] 03-28-2024 [facility]11-03-2024 [facility] 03-26-2024 [facility]11-02-2024 [facility] 03-25-2024 History and physical note* Juwan Smith MD - 03/25/2024 12:22 AM EDT Images from the original note were not included. HMS HISTORY AND PHYSICAL -- [facility] Patient Name: Addie Jean Baptiste : 1975 MR #: [id number] Admit Date: 03/24/2024 Physicians: Stephany Pelayo PA-C (Family); No ref. provider found (Referring) Addie Jean Baptiste is a 48 y.o. female patient of Stephany Pelayo PA-C with history of T2DM, HTN, bipolar disorder, and chronic back pain presented to [facility] on 03/25/2024 with left toe wound. Left [...] and follows with Dr. Castillo.Pt has not takenany antibiotics recently. Otherwise denies any fever, chills, chest pain, SOB, abdominal pain, N/V,diarrhea, constipation, dizziness, headache, or syncope. Past Medical [...] and iv dye, Fentanyl, Ibuprofen, Latex, Linezolid, Lorazepam,Nsaids (non-steroidal anti-inflammatory drug), Vancomycin, and Propoxyphene Home [...] expedite correspondence this note was generated by [employer] voice recognition software. The voice recognition software is inherently subject to errors including those of syntax and sound-alike substitutions which may escape proofreading. If such errors are discovered, or if there are any qu estions or concerns regarding the recommendations/plan of care, please contact the author of the note prior to undertaking the recommendations/plan of care. documented in this [id number] Emergency department Note* Ani Gonzales CNP - 03/24/2024 10:33 PM EDTAssociated Order(s): ECG 12- Lead Images from the original note were not included. [place] [id number] NAME: Addie Jean Baptiste AGE: 48 y.o. PCP: Stephany Pelayo PA-C CSN: [id number] Chief Complaint: Toe Pain CLINICAL IMPRESSION: 1. Osteomyelitis of great toe (HCC) 2. Diabetes mellitus due to underlying condition with hyperglycemia, with long- term current use of insulin (HCC) 3. SIRS [...] have findings suggestive of osteomyelitis at the tuftof the first distal phalanx. The nurse had difficulty obtaining labs. Laboratory evaluation with noleukocytosis but she is noted to have lactic acidosis with a lactic acid level of 3.0. CRP and sedim entation rate elevated. Basic metabolic panel with a [...] BP:(!) 144/103, Pulse:(!) 112, Resp:18, SpO2:99 % 03/24/242218, Resp:18 03/24/24 1913, BP:(!) 181/103, Temp:97.2 F [...] tablet 800 mg ( Oral Canceled Entry 03/25/24 0400) timolol (TIMOPTIC) 0.5 % ophthalmic solution 1 [...] in inpatient encounters. Please contact a senior systems developer. HISTORY Chief Complaint: Toe Pain History of [...] total) by mouth daily . Dexcom G6 Wide Area Network Engineer [facility] Use as directed for continuous glucose monitoring [...] mg total) by mouth 2 (two) times aday . levothyroxine (SYNTHROID, LEVOTHROID) 75 MCG tablet [...] mg total) by mouth as needed for diarrhea(Max dose 7 pills) . loratadine (CLARITIN) 10 mg tablet Take 1 (one) tablet (10 mg total) by mouth daily . metFORMIN (GLUCOPHAGE) 1000 MG tablet Take 1 (one) tablet (1,000 mg total) by mouth 2 (two) times aday . metoprolol succinate (TOPROL-XL) 50 MG 24 [...] total) by mouth 2 (two) times a day. Omnipod 5 G6 Pods, Gen 5, Crtg [...] guardian was informed that the photograph will beused exclusively for their medical records and not [...] components within normal limits Narrative: [facility] has implemented the eGFR calculation [...] Procedure Abnormality Status --------- ------ CBC Auto Differential[[id number]] Abnormal Final result Please view results for [...] sinus rhythm and sinus tachycardia BPM: 109 PA Interval: 176 QRS Interval: 82 QT Interval: 328 Clinical impression: abnormal ECG and sinus tachycardia Ani Gonzales, MSN, WOUND CARE CENTER CONSULTANT-BC, ENP-C Emergency Department Nurse Practitioner [facility] Emergency Department (Please note that portions of this note have been completed with a voice recognition software. Efforts were made to correct any errors, but occasionally words are mis-transcribed.) Ani Gonzales CNP 03/25/24 0350 * Kathryn Webb RN - 03/24/2024 9:24 PM EDT Bed: 02 Expected date: Expected time: Means of arrival: Comments: SS * Haven Londono LPN - 03/24/2024 8:36 PM EDT Patient has a Port * Alyx Rivera RN - 03/24/2024 7:10 PM EDT Pt ems pt has an infection in her left toe which is recurrent. Ctiy medic 29 documented in this [id number] Telephone encounter Note* Telephone Encounter - Moo Louise RN - 03/24/2024 3:21 PM EDT Pt called - [facility] is out of Percocet. Pharmacy changed to [facility] on refill request. Pt asked to let you know she is seeing translator interpreter on Thursday for possible surgery. [id number] Miscellaneous Notes* Telephone Encounter - Moo Louise RN - 03/24/2024 3:21 PM EDT Pt called - [facility] is out of Percocet. [facility]ill [facility]. Pt asked to let you know she is seeing translator interpreter on Thursday for possible surgery. documented in this [id number] [facility] INTERNAL MEDICINE [address] [place] [address] Subjective Patient ID: Addie Jean Baptiste is [...] daily . 90 tablet 1 Dexcom G6 Wide Area Network Engineer Mis Use as directed for continuous glucose monitoring . 1 each 0 Dexcom G6 Sensor Simran Use as directed for continuous glucose monitoring change every 10 days . 3 each 11 Dexcom G6 Transmitter Simran Use as directed for continuous glucose monitoring change every 3 months . 1 each 3 glucagon (Gv (more content not included)...[facility] 03-22-2024 History of Present illness Narrative* Stephany Pelayo PA-C - 03/22/2024 10:53 AM EDT [facility] INTERNAL MEDICINE [address] [facility] EMERGENC[facility] DEPARTMENT. [place] [id number] Subjective Patient ID: Addie Jean Baptiste is [...] vomiting, and diarrhea, but no fever. She hasnot had any recent surgeries or taken any [...] due to mobility limitations related to her OA,COPD, low back pain, and L great toe ulcer. She has great difficulty changing positions due to these comorbidities and her body habitus. She also has a current pressure ulcer on her trunk for which Sarahi referred her to wound care, and chronic urinary incontinence. Past medical/surgical history Past Medical History: Diagnosis Date Anxiety Bipolar 1 disorder (HCC) Bipolar disorder (HCC) Chronic back pain Coronary artery disease Depression Diabetes mellitus (HCC) Hypertension MRSA (methicillin resistant Staphylococcus aureus) Pacemaker Seizures ([facility]) Stroke ([facility]) Past Surgical History: Procedure Laterality Date CHOLECYSTECTOMY [...] mg total) by mouth daily . 90 tablet1 Dexcom G6 Wide Area Network Engineer Misc Use as directed for continuous glucose [...] to 150 units once daily via pump .50 mL 5 lamoTRIgine (LAMICTAL) 25 MG tablet Take 1 (one) tablet (25 mg total) by mouth 2 (two) times a day . 60 tablet 2 lancets Misc 1 Lancet by Miscellaneous route 3 (three) times a day . 100 each 5 levETIRAcetam (KEPPRA) 1000 MG tablet Take 1 (one) tablet (1,000 mg total) by mouth 2 (two) times aday . 180 tablet 1 levothyroxine (SYNTHROID, LEVOTHROID) [...] mg total) by mouth 2 (two) times aday . 60 tablet 5 metoprolol succinate (TOPROL-XL) [...] total) by mouth 2 (two) times a day. Omnipod 5 G6 Pods, Gen 5, Crtg [...] mg total) by mouth as needed for diarrhea(Max dose 7 pills) . 20 capsule 1 [...] use included cigarettes. She started smoking about 9years ago. She has a 18.3 pack-year smoking history. She has been exposed to tobacco smoke. She hasnever used smokeless tobacco. She reports current drug use. Drug: Marijuana. She reports that she does not drink alcohol. reports that she has quit smoking. Her smoking use included cigarettes. She started smoking about 9years ago. She has a 18.3 pack-year smoking history. She has been exposed to tobacco smoke. She hasnever used smokeless tobacco. Current medication list and allergies reviewed and updated with patient. Past medical history reviewed. Past Surgical History reviewed. Personal history Social History reviewed. Family history Family History reviewed. REVIEW OF SYSTEMS: Review of Systems Constitutional: Negative for activity change, appetite change, fatigue, fever and unexpected weightchange. HENT: Negative for hearing loss. Eyes: Negative [...] day, and Seroquel. Valium was requested however Iwill not prescribe this medication. 6. Seizure DO [...] up. Stephany Pelayo PA-C documented in this [id number] Telephone encounter Note* Telephone Encounter - Moo Louise RN - 03/08/2024 5:56 PM EDT Per med list, patient not taking Tizanadine. But she requested a refill. [id number] Miscellaneous Notes* Telephone Encounter - Moo Louise RN - 03/08/2024 5:56 PM EDT Per med list, patient not taking Tizanadine. But she requested a refill. documented in this [id number] NotePROGRESS :This report has been cancelled.[facility]09-16-2024 Telephone encounter Note* Telephone Encounter - Magnolia Chavira LPN - 02/08/2024 10:19 AM EDT Patient asking for refill of: QUEtiapine (SEROQUEL) [...] mg total) by mouth daily. 10/07/23 Pharmacy: [facility] pharmacy Patient last seen: 10/07/23 Patient next scheduled appt: 03/01/24 [id number] Miscellaneous Notes* Telephone Encounter - Magnolia Chavira LPN - 02/08/2024 10:19 AM EDT Patient asking for refill of: QUEtiapine (SEROQUEL) [...] mg total) by mouth daily. 10/07/23 Pharmacy: [facility] pharmacy Patient last seen: 10/07/23 Patient next scheduled appt: 03/01/24 documented in this [id number] Telephone encounter Note* Telephone Encounter - Jay Peralta MA - 02/03/2024 2:23 PM EDT PA requires tablets please double check the rx I sent you please. [id number] Miscellaneous Notes* Telephone Encounter - Jay Peralta MA - 02/03/2024 2:23 PM EDT PA requires tablets please double check the rx I sent you please. * Telephone Encounter - Moo Louise RN - 02/03/2024 1:50 PM EDT Rcvd call from pharmacist at [facility]. RX states to take 1 capsule 2 times a day as needed, then it says 2 tabs p.o. nightly. Qty 60. Please correct and resend. documented in this [id number] Telephone encounter Note* Telephone Encounter - Moo Louise RN - 02/03/2024 1:50 PM EDT Rcvd call from pharmacist at [facility]. RX states to take 1 capsule 2 times a day as needed, then it says 2 tabs p.o. nightly. Qty 60. Please correct and resend. [id number] Instructions* Patient Instructions* Jim Velez DO - 02/02/2024 4:17 PM [...] 2 p.o. nightly only documented in this [id number] History of Present illness Narrative* Jim Velez DO - 02/02/2024 4:05 PM EDT [facility] Interventional Pain Management Office Note [...] in water therapy due to left foot painissues. - The patient was hospitalized from January 17 for five to seven days, during which she received Percocet every four hours for pain management. - Her toe is currently described as open flesh, with no amputation performed at this point. - The patient has a history of recurrent infections in the affected toe, occurring annually. - She mentions a previous hospitalization at [facility], where a foot amputation was considered but [...] to the medial malleolus consistent with sequela ofremote trauma. 4. There is a 5 mm [...] type II in her father; Hypertension in herfather; Seizures in her mother. PACU Vitals 02/02/24 [...] due to peripheral neuropathy. Diminished L4 reflex notedbilaterally. Increased sensitivity with light touch throughout the [...] tablet (1,000 mcg total) by mouth daily Reasons:[facility]. Dexcom G6 Wide Area Network Engineer Misc Use as directed for continuous glucose [...] mg total) by mouth 2 (two) times aday . levothyroxine (SYNTHROID, LEVOTHROID) 75 MCG tablet [...] mg total) by mouth 2 (two) times aday . metoprolol succinate (TOPROL-XL) 50 MG 24 hr tablet Take 1 (one) tablet (50 mg total) by mouth daily . miscellaneous medical supply [facility] 1 each by Miscellaneous route daily . nortriptyline (PAMELOR) 25 MG capsule Take 1 (one) capsule (25 mg total) by mouth nightly . omeprazole (PRILOSEC) 40 MG capsule Take 1 (one) capsule (40 mg total) by mouth 2 (two) times a day. Omnipod 5 G6 Pods, Gen 5, Crtg [...] OPIOIDS Jim Velez D.O. Interventional Pain Management [facility] documented in this [id number] History of Present illness Narrative* Rafaela Medrano, BEATRIZ - 01/27/2024 1:50 PM EDT HPI Addie Organ is a 48 y.o. female Chief Complaint Patient presents with Follow-up Hosp follow up-left big toe Addie Jean Baptiste presents for hospital follow-up. She was seen at [facility] on 01/12/24 - 01/18/24 with L diabetic toe ulcer. She was started on doxycycline BID x 10 days and advised to follow up with podiatry on01/27/24. Patient reports she has had this ulcer for years - reports it usually heals with regular wound carebut it shows up every year. Reports since being home it has been saturated in blood. Reports she doesn't have any dressing supplies. She had an appointment with podiatry this morning but missed the appt due to a severe headache. She has not been to pharmacy to spanish moss picker her antibiotic. Reports she is in [...] polyneuropathy, with long-term current use of insulin ([facility]) Bipolar 1 disorder ([facility]) Seizures ([facility]) Chronic chest pain GERD (gastroesophageal reflux disease) Hypothyroidism Diabetic peripheral neuropathy ([facility]) Insomnia Generalized weakness Diabetic ulcer of right foot associated with type 2 diabetes mellitus ([facility]) Muscle spasms of both lower extremities Bowel incontinence Vitamin B12 deficiency Vitamin D deficiency Cigarette nicotine dependence COPD (chronic obstructive pulmonary disease) ([facility]) Left-sided weakness History of stroke Visual loss, left eye Weight gain Family history of pulmonary fibrosis Family history of dementia Urinary incontinence Chronic headaches Hypercholesterolemia CKD (chronic kidney disease) Retinal hemorrhage Diabetic ulcer of left great toe ([facility]) Current Outpatient Medications: albuterol (PROVENTIL) 2.5 mg [...] Disp: 90 tablet, Rfl: 1 Dexcom G6 Wide Area Network Engineer Misc, Use as directed for continuous glucose monitoring ., Disp: 1 each, Rfl: 0 Dexcom G6 Sensor Simran, Use as directed for continuous glucose monitoring change every 10 days ., Disp: 3 each, Rfl: 11 Dexcom G6 Transmitter Simran, Use as directed for continuous glucose monitoring change every 3 months., Disp: 1 each, Rfl: 3 divalproex (DEPAKOTE) [...] (25 mg total) by mouth nightly ., Disp:90 capsule, Rfl: 1 omeprazole (PRILOSEC) 40 MG capsule, Take 1 (one) capsule (40 mg total) by mouth 2 (two) times a day ., Disp: , Rfl: Omnipod Insulin Refill Crtg, , Disp: , Rfl: ondansetron (ZOFRAN-ODT) 4 MG disintegrating tablet, Dissolve 1 (one) tablet (4 mg total) on top oftongue every 8 (eight) hours as needed for [...] mg total) by mouth nightly ., Disp: 90tablet, Rfl: 0 doxycycline hyclate (VIBRAMYCIN) 100 MG [...] this upon discharge, missed last day to spanish moss picker from pharmacy Medications refilled as needed - recheck TSH for thyroid maintenance medication SOLO Recheck BMP today We discussed the following: ICD-10-CM ICD-9-CM 1. Diabetic ulcer of right foot associated with type 2 diabetes mellitus, unspecified part of foot,unspecified ulcer stage ([facility]) E11.621 250.80 doxycycline hyclate (VIBRAMYCIN) 100 MG capsule L97.519 707.15 metFORMIN (GLUCOPHAGE) 1000 MG tablet 2. Primary hypertension I10 401.9 metoprolol succinate (TOPROL-XL) 50 MG 24 hr tablet lisinopriL (PRINIVIL,ZESTRIL) 30 MG tablet atorvastatin (LIPITOR) 40 MG tablet 3. SOLO (acute kidney injury) ([facility]) N17.9 584.9 Basic Metabolic Panel 4. Hypothyroidism, [...] given to the patient. documented in this [id number] History of Present illness Narrative* Pippa Quiles RN - 01/18/2024 2:05 PM EDT AVS reviewed with patient. All requested supplies given to patient. Education on wound care provided to patient. Patient escorted to sister's car via wheelchair. All questions answered at this time. * Cris Cast RN - 01/18/2024 7:06 AM EDT Barriers to finding accepting [facility] agency: pt's home location (not many [facility] agencies in area), insurance not widely accepted [facility] agency: Accepted or Pending Name of agency: Accepted [facility] Referrals sent to: (names of agencies) Declined: [facility] - [facility] - [facility] - [facility] [place] - [facility] - [facility] - [facility] - staffing [facility] - no PT/OT [facility] Please be aware [facility] agencies have up to 24hours to respond. Many [facility] agencies closed on weekends, may take until Thursday to receive responses. [facility] created for the following services: yes - SN/PT/OT Verify the demographics (residential address) [address] [place], [place] [id number] What is the primary number to reach you? [phone] Who is your family physician/primary care physician? Stephany Pelayo PA-C [phone] Following physician will be: (list first name/last name) Do you have a caregiver and/or teachable caregiver (list relationship, name & phone #)? lives with family Estimated Discharge Date (KUNAL): 01/17 If discharge needs change, please reach out to Hub Liaison assigned on treatment team as hub is not notified of additional consults to [facility] once team is following. Thank you. * Mary Lou Castillo CNP - 01/17/2024 12:37 PM EDT NEPHROLOGY PROGRESS [facility] Patient Name: Addie Jean Baptiste Admit Date: [id number] MR #: [id number] : 1975 Perpetual Assessment: Addie Jean Baptiste [...] II/IIIa: Pt dos not follow with a jute bag sewer in the OP setting. Risk factors for [...] created by dictation via voice recognition software ([employer]). The completed note was reviewed for accuracy. [...] 3:55 PM EDT I personally performed a ywub-yx-jozl encounter and discussed in detail with the FRIDA on this encounter today as the FRIDA's evaluation. I have completed the substantive portion of the visit (greater than 50% of total time) which includes but is not limited to reviewing the chart, obtaining history, performing physical exam, reviewingrelevant data, medical decision making, and coordination with [...] created by dictation via voice recognition software ([employer]). The completed note was reviewed for accuracy. However, there may be subtle errors that were not found during the review. If such errors are discovered, or if there are any questions or concerns regarding the recommendations/plan of care, please contact the author of the note prior to undertaking the recommendations/plan of care. * Shy Sanchez RN - 01/17/2024 8:43 AM EDT Care Management Progress Note Date: 01/17/2024 Time: [...] at this time Assessment and Background Information: SDMA Needs Addressed: Food Insecurity, Housing Stability, Financial Resource Strain Resources Provided - Food Insecurity: Added to AVS, Other (CHW referral) Resources Provided - Housing Stability: Added to AVS, Other (CHW referral) * Ruthy Dong MD - 01/17/2024 7:34 AM EDT [facility] PROGRESS NOTE Assessment and Plan Addie Jean Baptiste is a 48 y.o. female patient of Stephany Pelayo PA-C with history of T2DM, HTN, bipolar disorder, and chronic back pain presented to [facility] on 01/12/2024 with left toe wound. Left [...] aspect of the 1st toe with likely adjacentcellulitis. No CT evidence of osteomyelitis in the [...] last 7 days Lab Units 01/17/24 04501/16/24 03501/15/24 0528 WBC K/mcL 7.74 8.82 7.12 [...] tablet (1,000 mcg total) by mouth daily Reasons:[facility]. Dexcom G6 Wide Area Network Engineer Misc Use as directed for continuous glucose [...] mg total) by mouth 2 (two) times aday . metFORMIN (GLUCOPHAGE) 1000 MG tablet Take 1 (one) tablet (1,000 mg total) by mouth 2 (two) times aday . metoprolol tartrate (LOPRESSOR) 25 MG tablet [...] total) by mouth 2 (two) times a day. Omnipod Insulin Refill Crtg ondansetron (ZOFRAN-ODT) 4 [...] 100 mL/hr (01/14/24 1256) subcutaneous insulin pump * Ruthy Dong MD - 01/16/2024 8:04 AM EDT [facility] PROGRESS NOTE Assessment and Plan Addie Jean Baptiste is a 48 y.o. female patient of Stephany Pelayo PA-C with history of T2DM, HTN, bipolar disorder, and chronic back pain presented to [facility] on 01/12/2024 with left toe wound. Left [...] aspect of the 1st toe with likely adjacentcellulitis. No CT evidence of osteomyelitis in the [...] tablet (1,000 mcg total) by mouth daily Reasons:[facility]. Dexcom G6 Wide Area Network Engineer Misc Use as directed for continuous glucose [...] mg total) by mouth 2 (two) times aday . metFORMIN (GLUCOPHAGE) 1000 MG tablet Take 1 (one) tablet (1,000 mg total) by mouth 2 (two) times aday . metoprolol tartrate (LOPRESSOR) 25 MG tablet [...] total) by mouth 2 (two) times a day. Omnipod Insulin Refill Crtg ondansetron (ZOFRAN-ODT) 4 [...] 100 mL/hr (01/14/24 1256) subcutaneous insulin pump * Addie Bland - 01/15/2024 6:11 PM EDT Spiritual Care Progress Note Person(s) Present During this Visit: Patient, Healthcare Provider Time Spent in Direct Patient Care: 5 Narrative: Addie welcomed pastoral care visit; however, she was in need of patient care at the timeof this visit. A follow up Pastoral Care [...] Visit With Patient;Healthcare Provider Visit By Staff Store Sales Manager Visit Progression Attempt Visit Requested By Store Sales Manager Initiated Visit Source Store Sales Manager Initiated Visit Type Inpatient;Rounding Visit Circumstances and Events Routine Visit Visit Length (minutes) 5 Patient's Response to Pastoral Care Timing of Visit Not Optimal. Visit Rescheduled (Patient care needed) Visit Planning PRN Spiritual Assessment Unable to Assess during this visit Mandaen Assessment Unable to Assess during this visit Family assessment provided? Unable to asess during this visit Rev. Addie Bland MDiv. Staff Store Sales Manager [facility] Contact * Haven Pope RN - 01/15/2024 4:20 PM EDT Care Management Progress Note Date: 01/15/2024 Time: [...] is agreeable to this. She denies any otherneeds Unsure at this time if pt will discharge over the weekend. Will add pt to VCM list for assistance with discharge needs over the weekend. Assessment and Background Information: SDOH Needs Addressed: Food Insecurity, Housing Stability, Financial Resource Strain Resources Provided - Food Insecurity: Added to AVS, Other (CHW referral) Resources Provided - Housing Stability: Added to AVS, Other (CHW referral) * Ruthy Dong MD - 01/15/2024 9:04 AM EDT [facility] PROGRESS NOTE Assessment and Plan Addie Jean Baptiste is a 48 y.o. female patient of Stephany Pelayo PA-C with history of T2DM, HTN, bipolar disorder, and chronic back pain presented to [facility] on 01/12/2024 with left toe wound. Left [...] aspect of the 1st toe with likely adjacentcellulitis. No CT evidence of osteomyelitis in the [...] tablet (1,000 mcg total) by mouth daily Reasons:[facility]. Dexcom G6 Wide Area Network Engineer Misc Use as directed for continuous glucose [...] mg total) by mouth 2 (two) times aday . metFORMIN (GLUCOPHAGE) 1000 MG tablet Take 1 (one) tablet (1,000 mg total) by mouth 2 (two) times aday . metoprolol tartrate (LOPRESSOR) 25 MG tablet [...] total) by mouth 2 (two) times a day. Omnipod Insulin Refill Crtg ondansetron (ZOFRAN-ODT) 4 [...] 100 mL/hr (01/14/24 1256) subcutaneous insulin pump * Nancy Damon RN - 01/15/2024 7:24 AM EDT Care Management Progress Note Date: 01/15/2024 Time: [...] Other (CHW referral) Barriers to finding accepting [facility] agency: pt's home location (not many [facility] agencies in area), insurance not widely accepted HH agency: Accepted or Pending Name of agency: Accepted but cannot open for SOC until 01/18 [facility] Referrals sent to: (names of agencies) Declined: [facility]- [facility] - [facility] - [facility] - [facility] [place] - [facility] - [facility] - [facility]- [facility] Please be aware [facility] agencies have up to 24hours to respond. Many [facility] agencies closed on weekends, may take until Thursday to receive responses. [facility] created for the following services: yes - SN/PT/OT Verify the demographics (residential address) [address] [place] [address] What is the primary number to reach you? [phone] Who is your family physician/primary care physician? Stephany Pelayo PA-C [phone] Do you have a caregiver and/or teachable caregiver (list relationship, name & phone #)? lives with family Estimated Discharge Date (KUNAL): 01/14 If discharge needs change, please reach out to Hub Liaison assigned on treatment team as hub is not notified of additional consults to Hub once team is following. * Shameka Castillo DPM - 01/14/2024 2:52 PM EDT [facility] PROGRESS NOTE ASSESSMENT AND PLAN: Diabetes [...] with the patient and family if present. Discussedplan with other teams' providers. We discussed with [...] diagnostic recommendations. I explained discharge plans, including therequired post-hospitalization care, treatment, and services. All questions [...] % -- -- 6.5 Invalid input(s): LABALBU * Ruthy Dong MD - 01/14/2024 12:18 PM EDT [facility] PROGRESS NOTE Assessment and Plan Addie Organ is a 48 y.o. female patient of Stephany Pelayo PA-C with history of T2DM, HTN, bipolar disorder, and chronic back pain presented to [facility] on 01/12/2024 with left toe wound. Left [...] aspect of the 1st toe with likely adjacentcellulitis. No CT evidence of osteomyelitis in the [...] Discussed outpatient follow up w/ podiatry and oralabx. Objective/Exam Temp: [97.3 F (36.3 C)-98.2 F [...] tablet (1,000 mcg total) by mouth daily Reasons:[facility]. Dexcom G6 Wide Area Network Engineer Misc Use as directed for continuous glucose [...] mg total) by mouth 2 (two) times aday . metFORMIN (GLUCOPHAGE) 1000 MG tablet Take 1 (one) tablet (1,000 mg total) by mouth 2 (two) times aday . metoprolol tartrate (LOPRESSOR) 25 MG tablet [...] total) by mouth 2 (two) times a day. Omnipod Insulin Refill Crtg ondansetron (ZOFRAN-ODT) 4 [...] sodium chloride 0.9 % 100 mL/hr (01/13/24 9235) sodium chloride 0.9 % subcutaneous insulin pump * Cris Cast RN - 01/14/2024 7:09 AM EDT 01/14/24 2:32pm - Called to [facility] and [facility]. Results are listed below. More referrals sent. Barriers to finding accepting [facility] agency: pt's home location (not many [facility] agencies in area), insurance not widely accepted [facility] agency: Accepted or Pending Name of agency: PEND[facility] - call ringing and then not going through [facility] Accepted but cannot open for SOC until 01/18 [facility] Referrals sent to: (names of agencies) Declined: [facility] - [facility] - [facility] - [facility] [place] - [facility] - [facility] - [facility] - staffing Please be aware [facility] agencies have up to 24hours to respond. Many [facility] agencies closed on weekends, may take until Thursday to receive responses. [facility] created for the following services: yes - SN/PT/OT Verify the demographics (residential address) [address] [place] [address] What is the primary number to reach you? [phone] Who is your family physician/primary care physician? Stephany Pelayo PA-C [phone] Following physician will be: (list first name/last name) Do you have a caregiver and/or teachable caregiver (list relationship, name & phone #)? lives with family Estimated Discharge Date (KUNAL): 01/14 If discharge needs change, please reach out to Hub Liaison assigned on treatment team as hub is not notified of additional consults to Hub once team is following. Thank you. * Salena Ghotra LPN - 01/13/2024 6:23 PM EDT 01/13/241820 Provider Notification Reason for Communication Change in status Provider Name Judy Provider Role Hospitalist Notification Method Call Response En route Notification Time 1820 * Ruthy Dong MD - 01/13/2024 9:07 AM EDT [facility] PROGRESS NOTE Assessment and Plan Addie Jean Baptiste is a 48 y.o. female patient of Stephany Pelayo PA-C with history of T2DM, HTN, bipolar disorder, and chronic back pain presented to [facility] on 01/12/2024 with left toe wound. Left [...] tablet (1,000 mcg total) by mouth daily Reasons:[facility]. Dexcom G6 Wide Area Network Engineer Misc Use as directed for continuous glucose [...] mg total) by mouth 2 (two) times aday . metFORMIN (GLUCOPHAGE) 1000 MG tablet Take 1 (one) tablet (1,000 mg total) by mouth 2 (two) times aday . metoprolol tartrate (LOPRESSOR) 25 MG tablet [...] total) by mouth 2 (two) times a day. Omnipod Insulin Refill Crtg ondansetron (ZOFRAN-ODT) 4 [...] sodium chloride 0.9 % subcutaneous insulin pump * Yolie Knott RPh,PharmLauren - 01/12/2024 9:22 PM EDT Pharmacotherapy Note: CSII Pump Verification Pharmacist has [...] not been spiked, are well within the pediatric neuropsychologist expiration date and have been stored at room temperature (<28 days). Continue with insulin regimen as written. Please call pharmacy with any questions. Pharmacist: Yolie Knott RPh,PharmLauren Date: 01/12/2024 Contact Information: [phone] documented in this [id number] Hospital course Narrative* Harshad Rizzo MD - 01/18/2024 11:00 AM EDT Images from the original note were not included. [facility] DISCHARGE SUMMARY Addie Jean Baptiste Admitted: 01/12/2024 Discharge Date: 01/18/24 PCP Handoff Recommended Outpatient Testing None Results Pending At Discharge None Clinical Summary Addie Jean Baptiste is a 48 y.o. female patient of Stephany Pelayo PA-C with history of T2DM, HTN, bipolar disorder, and chronic back pain presented to [facility] on 01/12/2024 with left toe wound. Assessment [...] needed for wheezing or shortness ofbreath . Quantity: 75 mL alcohol swabs Padm [...] [facility]. Quantity: 90 tablet Dexcom G6 Wide Area Network Engineer Mis Generic drug: blood-glucose meter,continuous Use as [...] day thereafter . Quantity: 30 tablet lancets [facility] 1 Lancet by Miscellaneous route 3 (three) [...] ZANAFLEX Physician(s) Follow Up: Stephany Pelayo PA-C [address] [facility] [address] [facility] [address] Follow up [facility] Address: [facility] [facility] [address] Servicing Counties: [facility] [phone] Shameka Castillo, DPJoel [address] [facility] [address] [facility] [address] Schedule an appointment as [...] on 01/18/24, 11:00 AM documented in this [id number] Hospital Discharge instructions * Discharge Instructions* Pippa Quiles RN - 01/18/2024 10:12 AM EDT * Discharge Instr - Care Coordination* Haven Pope RN - 01/13/2024 2:31 PM EDT [address] [address] Call [phone] ext. [phone] for more information -Summer Reading Program provides an individualized reading program during the summer months. -The [facility] Rx Program is a unique collaborative program in [facility]. The program assists [place] residents to obtain prescriptions in an affordable manner for immediate and ongoing needs. -The Volunteer Income Tax Assistance (DARÍO) is a free tax preparation service for low to moderate-income individuals and families. Federal and State tax returns can be completed and electronically filed. -The Emergency Food and Intermediate Program (EFSP) is funded by the Department of [employer] to assist with emergency food and intermediate programs. Further information can be obtained by -The Rapid Rehousing and Homeless Prevention Programs are here to help those struggling with homelessness or who are in danger of becoming homeless. -The Payee Program assists individuals with managing their Social Security, [employer], orVA benefits. This program provides free payee services to individuals. Please note, we do not take on guardianship of the individual. -The Emergency Senior Funding is a melly from the [facility] on Aging to assist those 60and over with needs that are not met by other services in [place]. The funds are meant to help with unexpected emergency needs that the senior may not be able to afford -The COVID-related funding Individuals or families who have been impacted by COVID could receive assistance with household bills. -The Personal Needs Pantry can provide non-food household essentials to income- eligible households.The pantry is available on Thursday afternoons from [...] up-to-date on available resources, services and funding. * Attachments The following attachments cannot be sent through Care Everywhere. * Caregiving: Foot and Toenail Care: General Info (Stateless) * Chronic Wound: Healing: General Info (Stateless) documented in this [id number] [facility] 01-17-2024 [facility]08-24-2024 Consult note* Mary Lou Castillo, BEATRIZ - 01/16/2024 10:55 AM EDTAssociated Order(s): IP CONSULT TO NEPHROLOGY NEPHROLOGY CONSULTATION [facility] Patient Name: Addie Jean Baptiste MR #: [id number] : 1975 Requesting physician: Hospitalist Reason for [...] -Per podiatry, p.o. Jolene on discharge. 3. ?CKD stage II/IIIa: Pt dos not follow with a jute bag sewer in the OP setting. Risk factors for [...] bipolar disorder, back pain who presented to [facility] with left toe wound. Per documentation, patient with 4- day history of left toe ulcer with [...] tablet (1,000 mcg total) by mouth daily Reasons:[facility]. Dexcom G6 Wide Area Network Engineer Misc Use as directed for continuous glucose [...] mg total) by mouth 2 (two) times aday . metFORMIN (GLUCOPHAGE) 1000 MG tablet Take 1 (one) tablet (1,000 mg total) by mouth 2 (two) times aday . metoprolol tartrate (LOPRESSOR) 25 MG tablet [...] total) by mouth 2 (two) times a day. Omnipod Insulin Refill Crtg ondansetron (ZOFRAN-ODT) 4 [...] hydrALAZINE, hydrOXYzine, melatonin, nalOXone AND Notify physician ANDnaloxone, ondansetron OR ondansetron, oxyCODONE- acetaminophen, senna, Saline lock IV AND sodium chloride [...] and iv dye, Fentanyl, Ibuprofen, Latex, Linezolid, Lorazepam,Nsaids (non-steroidal anti-inflammatory drug), Vancomycin, and Propoxyphene Review [...] I have reviewed Progress Notes in the [facility] EHR and [facility]. [x] I have interpreted/reviewed lab tests and radiography data in the [facility] EHR. [x] I have discussed the case with the primary service. [x] I have ordered appropriate tests/labs Comments: Thank you for allowing us to participate in the care of this patient. We will continue to follow. Please call if questions or concerns arise. Potential limitations of the note: Parts of this note were created by dictation via voice recognition software ([employer]). The completed note was reviewed for accuracy. [...] 4:07 PM EDT I personally performed a came-dk-elsj encounter and discussed in detail with the FRIDA on this encounter today as the FRIDA's evaluation. I have completed the substantive portion of the visit (greater than 50% of total time) which includes but is not limited to reviewing the chart, obtaining history, performing physical exam, reviewingrelevant data, medical decision making, and coordination with [...] created by dictation via voice recognition software ([employer]). The completed note was reviewed for accuracy. However, there may be subtle errors that were not found during the review. If such errors are discovered, or if there are any questions or concerns regarding the recommendations/plan of care, please contact the author of the note prior to undertaking the recommendations/plan of care. [id number] Consult note* Mary Lou Castillo, NAVAL ENGINEER - 01/16/2024 10:55 AM EDTAssociated Order(s): IP CONSULT TO NEPHROLOGY NEPHROLOGY CONSULTATION [facility] Patient Name: Addie Jean Baptiste MR #: [id number] : 1975 Requesting physician: Hospitalist Reason for [...] -Per podiatry, p.o. Jolene on discharge. 3. ?CKD stage II/IIIa: Pt dos not follow with a jute bag sewer in the OP setting. Risk factors for [...] bipolar disorder, back pain who presented to [facility] with left toe wound. Per documentation, patient with 4- day history of left toe ulcer with [...] tablet (1,000 mcg total) by mouth daily Reasons:[facility]. Dexcom G6 Wide Area Network Engineer Misc Use as directed for continuous glucose [...] mg total) by mouth 2 (two) times aday . metFORMIN (GLUCOPHAGE) 1000 MG tablet Take 1 (one) tablet (1,000 mg total) by mouth 2 (two) times aday . metoprolol tartrate (LOPRESSOR) 25 MG tablet [...] total) by mouth 2 (two) times a day. Omnipod Insulin Refill Crtg ondansetron (ZOFRAN-ODT) 4 [...] hydrALAZINE, hydrOXYzine, melatonin, nalOXone AND Notify physician ANDnaloxone, ondansetron OR ondansetron, oxyCODONE- acetaminophen, senna, Saline lock IV AND sodium chloride [...] and iv dye, Fentanyl, Ibuprofen, Latex, Linezolid, Lorazepam,Nsaids (non-steroidal anti-inflammatory drug), Vancomycin, and Propoxyphene Review [...] I have reviewed Progress Notes in the [facility] EHR and CareEverywhere. [x] I have interpreted/reviewed lab tests and radiography data in the [facility] EHR. [x] I have discussed the case with the primary service. [x] I have ordered appropriate tests/labs Comments: Thank you for allowing us to participate in the care of this patient. We will continue to follow. Please call if questions or concerns arise. Potential limitations of the note: Parts of this note were created by dictation via voice recognition software ([employer]). The completed note was reviewed for accuracy. [...] 4:07 PM EDT I personally performed a hrog-yx-wfhh encounter and discussed in detail with the FRIDA on this encounter today as the FRIDA's evaluation. I have completed the substantive portion of the visit (greater than 50% of total time) which includes but is not limited to reviewing the chart, obtaining history, performing physical exam, reviewingrelevant data, medical decision making, and coordination with [...] created by dictation via voice recognition software ([employer]). The completed note was reviewed for accuracy. However, there may be subtle errors that were not found during the review. If such errors are discovered, or if there are any questions or concerns regarding the recommendations/plan of care, please contact the author of the note prior to undertaking the recommendations/plan of care. * Jos Soto, PT - 01/14/2024 11:27 AM EDT Physical Therapy PHYSICAL THERAPY EVALUATION Skilled Therapy Needs After Discharge Anticipate Resolution of Current Assessment Limitations Including: Pain, Mechanical Barriers Are machine maintenance mechanic Therapy Services Needed After Discharge: Yes Intensity of machine maintenance mechanic Therapy: 2-3 days per week Anticipated Duration of machine maintenance mechanic Therapy: Duration 10 - 30 days PT [...] Precautions Orthotic Devices: Yes Lower Extremity: Left (Laceys Spring shoe on) Weight Bearing Status: X LLE: Partial Wt bearing (Heel WB) General Rehab Precautions: Fall risk Balance Assessment Sitting Balance - Static: Independent Sitting Balance - Dynamic: Independent Standing Balance - Static: Minimal assist Bingo Clerk - Standing Static: BUE Standing Balance - Dynamic: Minimal assist, 2 person Bingo Clerk - Standing Dynamic: same biological aide used for static standing tasks Bed Mobility Supine to Sit: (NT- Patient was up in chair before and After PT eval) Transfers Sit to Stand: Contact guard assist Bed to Chair: Contact guard assist Bingo Clerk: BUE (Patient uses cane, but reports that [...] Function Receives Help From: Family Level of [place] - Transfers/Ambulation/Mobility: Independent with functional transfers, Independent with household ambulation Level of [place] - ADLs: Needs assistance Level of [place] - Homemaking: Independent Past Medical History: Diagnosis [...] hospital or completion of Physical Therapy Plan. * Shawna Montoya, OT - 01/14/2024 10:10 AM EDT Occupational Therapy OCCUPATIONAL THERAPY EVALUATION Skilled Therapy [...] motivation. The patient's home setup is a plastic extrusion operator, family / caregiver support is a plastic extrusion operator for return to prior level of function. The patient's education level is a plastic extrusion operator, compliance is a plastic extrusion operator to return to prior level of function. During the assessment, minimal to moderate modification of task was required and multiple treatmentoptions were identified in the plan of care. This consultation required expanded review of the medical and therapy history. Activity Tolerance Activity Tolerance: Tolerates less than 10 min activity, no significant change in vital signs Therapy Precautions Orthotic Devices: Yes Lower Extremity: Left (Laceys Spring Shoe) Weight Bearing Status: X LLE: Partial [...] assist Supine to Sit: Contact guard assist Bingo Clerk: bedrails Functional Transfers Sit to Stand: Contact guard assist Bed to Chair Transfers: Contact guard assist Stand Pivot Transfers: Contact guard assist Bingo Clerk: (gait belt, shoe, sock) Additional Assessment Details [...] but reports that she does not get upout of bed much Prior Level of Function Receives Help From: Family Level of [place] - Transfers/Ambulation/Mobility: Independent with functional transfers Level of [place] - ADLs: Needs assistance Level of [place] - Homemaking: Independent Past Medical History: Diagnosis Date Anxiety Bipolar 1 disorder (HCC) Bipolar disorder ([facility]) Chronic back pain Coronary artery disease Depression Diabetes mellitus ([facility]) Hypertension MRSA (methicillin resistant Staphylococcus aureus) Pacemaker [...] completion of Occupational Therapy Plan of Care. * Cris Cast, RN - 01/13/2024 2:37 PM EDTAssociated Order(s): IP CONSULT TO HOME [facility]ALTH [facility] 01/13/24 2:37 PM - Liaison received a [facility] consult for [facility] needs. Patient's agency choice is no preference (would prefer not [place]) Barriers to finding accepting [facility] agency: pt's home location (not many [facility] agencies in area), insurance not widely accepted [facility] agency: Accepted or Pending Name of agency: [facility] Referrals sent to: (names of agencies) Declined: [facility] [place] [facility] [place] Please be aware [facility] agencies have up to 24hours to respond. Many [facility] agencies closed on weekends, may take until Thursday to receive responses. [facility] created for the following services: yes - SN/PT/OT Verify the demographics (residential address) [address] [place] [address] What is the primary number to reach you? [phone] Who is your family physician/primary care physician? Stephany Pelayo PA-C [phone] Following physician will be: (list first name/last name) Do you have a caregiver and/or teachable caregiver (list relationship, name & phone #)? lives with family Estimated Discharge Date (KUNAL): 01/14 If discharge needs change, please reach out to [facility] Liaison assigned on treatment team as hub is not notified of additional consults to [facility] once team is following. Thank you. * Haven Pope RN - 01/13/2024 2:25 PM EDTAssociated Order(s): IP CONSULT TO CARE MANAGEMENT Care Management Consult Note Date: 01/13/2024 Time: 2:25 PM Patient Name: Addie Jean Baptiste Date of : 1975 Reason for Consult: Discharge Plan: Plan A: Home Health Care Services Plan B: Home Health Care Services Discharging Transportation Plan: Auto Discharge Plan Status: Met F2F with pt at bedside, discussed discharge needs. Pt lives with her sonand [id number], they provide support. She states that she [...] agency but does not wish to have [facility]. Referral to [facility] entered. Plan A: Pt will return home with her family, home health services to be arranged. Plan B: Will follow pt for any additional needs. Assessment and Background Information: Living Arrangements: Family members Support Systems: Family members Assistance Needed: n/a Type of Residence: Private residence Prior to Admission Home Care Services: No Current Home Equipment: (Electric scooter) * Lucina Henry RN - 01/13/2024 8:44 AM EDTAssociated Order(s): IP CONSULT TO ENTEROSTOMAL THERAPY Consulted to see patient for her left great toe and abdominal wound. Patient sitting on edge of bedwatching TV. Dr Joel Castillo in room as well. Applied medi- honey to her abdominal wound and covered witha Mepilex. Used betadine swab to her left great toe and covered with guaze/tape. Her left great toenail is completely off and her toe is red. Her abdominal wound measures 1cm x 1cm and has a white wound bed and gema wound is red. * Shameka Castillo, DPM - 01/13/2024 8:29 AM EDTAssociated Order(s): IP CONSULT TO PODIATRY Images from [...] presentation today at this point no surgical inventionat this time we will await the results of the MRI pending those results she may need amputation butat this point she will likely heal with aggressive wound care management. - OR Plans: none - ABX: PO Doxy on discharge - DSG: betadine gauze bandage - WBS: heel weight bearing with marian shoe - XR : reviewed. CT ordered, MRI unable to complete due to ICD Answered questions and rediscussed plan at length with the patient and family if present. Discussedplan with other teams' providers. We discussed with [...] diagnostic recommendations. I explained discharge plans, including therequired post-hospitalization care, treatment, and services. All questions [...] ulcer has been present for a few days.The patient denies nausea, fever, vomiting, chills or [...] , vibratory, and proprioception sensations are: diminished. Achillesand patellar deep tendon reflexes intact. ORTHO: No [...] was drained at home, TECHNOLOGIST PROVIDED HISTORY: Ill ness/Other Reason for exam: Circumferential sloughing of skin of first great toe, poorly controlleddiabetic, concern for osteomyelitis, possible recent abscess that [...] DRUG/FOOD ALLERGIES: Iodides, Ketorolac, Tramadol, Codeine, Propoxyphene n- acetaminophen, Adhesive,Compazine [prochlorperazine], Ct: iodinated contrast- oral and iv dye, Fentanyl, Ibuprofen, Latex, Linezolid, Lorazepam, Nsaids (non- steroidal anti-inflammatory drug), Vancomycin, and Propoxyphene MEDICATIONS: Current [...] tablet 30 mg 30 mg Oral Q12H [facility] Mk Leigh MD 30 mg at 01/12/24 2218 chlorthalidone (HYGROTON) tablet 25 mg 25 mg Oral Daily Mk Leigh MD citalopram (CELEXA) tablet 20 mg 20 mg Oral Daily Mk Leigh MD divalproex (DEPAKOTE) delayed release (DR) tablet 500 mg 500 mg Oral Q12H [facility] Mk Leigh MD hydrOXYzine (ATARAX) tablet 50 [...] to 150 units once daily via pump .50 mL 5 lamoTRIgine (LAMICTAL) 25 MG tablet [...] mg total) by mouth daily . 90 tablet1 citalopram (CELEXA) 20 MG tablet Take 1 (one) tablet (20 mg total) by mouth daily . 30 tablet 2 cyanocobalamin (B-12) 1000 MCG tablet Take 1 (one) tablet (1,000 mcg total) by mouth daily Reasons:[facility]. 90 tablet 1 Dexcom G6 Wide Area Network Engineer Mis Use as directed for continuous glucose [...] mg total) by mouth 2 (two) times aday . 180 tablet 1 metFORMIN (GLUCOPHAGE) 1000 MG tablet Take 1 (one) tablet (1,000 mg total) by mouth 2 (two) times aday . metoprolol tartrate (LOPRESSOR) 25 MG tablet [...] total) by mouth 2 (two) times a day. Omnipod Insulin Refill Crtg ondansetron (ZOFRAN-ODT) 4 MG disintegrating tablet Dissolve 1 (one) tablet (4 mg total) on top of tongue every 8 (eight) hours as needed for nausea . 20 tablet 1 oxyCODONE-acetaminophen (PERCOCET) 5-325 mg per tablet Take 1 (one) tablet by mouth nightly as needed for pain (Days supply per fill: 30) Start: 12/24/23. 30 tablet 0 Shameka Brown DPM documented in this [id number] [facility] 01-15-2024 Note* Plan of Care - Lauryn Devries LPN - 01/15/2024 12:34 PM EDT Problem: Actual or potential alteration in health [...] Absence of physical injury Outcome: Partially Met [id number] Miscellaneous Notes* Plan of Care - Lauryn Devries LPN - 01/15/2024 12:34 PM EDT Problem: Actual or potential alteration in health [...] Absence of physical injury Outcome: Partially Met * ED Attestation Note - Jacoby Dooley MD - 01/13/2024 11:56 PM EDT I performed a substantive part of the MDM during the patient's E/M visit. I personally made or approved the documented management plan and acknowledge its risk of complications Management/test interpretation discussed with midlevel provider. * Variance IP Rehab - Jos Soto PT - 01/13/2024 12:16 PM EDT PHYSICAL THERAPY VISIT VARIANCE NOTE Attempted to see patient at this time, but unable secondary to: Patient Unavailable (comment) (currently BHAVNA for CAT scan). Will follow up as appropriate. * Quick Note - Chaim Lamb TECHNOLOGIST - 01/13/2024 9:59 AM EDT Patient has an ICD that is MRI compatible but she does not follow up with anyone for her device check. We do not have anyone to send MRI cardiology order form. * Plan of Care - Salena Ghotra LPN - 01/13/2024 9:52 AM EDT Problem: Actual or potential alteration in health [...] functioning Outcome: Partially Met documented in this [id number] [facility] 01-14-2024 [facility]08-22-2024 [facility] 08-22-2024 Consult note* Jos Soto, PT - 01/14/2024 11:27 AM EDT Physical Therapy PHYSICAL THERAPY EVALUATION Skilled Therapy Needs After Discharge Anticipate Resolution of Current Assessment Limitations Including: Pain, Mechanical Barriers Are machine maintenance mechanic Therapy Services Needed After Discharge: Yes Intensity of machine maintenance mechanic Therapy: 2-3 days per week Anticipated Duration of machine maintenance mechanic Therapy: Duration 10 - 30 days PT [...] Independent Standing Balance - Static: Minimal assist Bingo Clerk - Standing Static: BUE Standing Balance - Dynamic: Minimal assist, 2 person Bingo Clerk - Standing Dynamic: same biological aide used for static standing tasks Bed Mobility Supine to Sit: (NT- Patient was up in chair before and After PT eval) Transfers Sit to Stand: Contact guard assist Bed to Chair: Contact guard assist Bingo Clerk: BUE (Patient uses cane, but reports that [...] Function Receives Help From: Family Level of [place] - Transfers/Ambulation/Mobility: Independent with functional transfers, Independent with household ambulation Level of [place] - ADLs: Needs assistance Level of [place] - Homemaking: Independent Past Medical History: Diagnosis [...] hospital or completion of Physical Therapy Plan. [id number] Consult note* Shawna Montoya OT - 01/14/2024 10:10 AM EDT Occupational Therapy OCCUPATIONAL THERAPY EVALUATION Skilled Therapy [...] motivation. The patient's home setup is a plastic extrusion operator, family / caregiver support is a plastic extrusion operator for return to prior level of function. The patient's education level is a plastic extrusion operator, compliance is a plastic extrusion operator to return to prior level of function. During the assessment, minimal to moderate modification of task was required and multiple treatmentoptions were identified in the plan of care. [...] assist Supine to Sit: Contact guard assist Bingo Clerk: bedrails Functional Transfers Sit to Stand: Contact guard assist Bed to Chair Transfers: Contact guard assist Stand Pivot Transfers: Contact guard assist Bingo Clerk: (gait belt, shoe, sock) Additional Assessment Details [...] but reports that she does not get upout of bed much Prior Level of Function Receives Help From: Family Level of [place] - Transfers/Ambulation/Mobility: Independent with functional transfers Level of [place] - ADLs: Needs assistance Level of [place] - Homemaking: Independent Past Medical History: Diagnosis Date Anxiety Bipolar 1 disorder (HCC) Bipolar disorder (HCC) Chronic back pain Coronary artery disease Depression Diabetes mellitus (HCC) Hypertension MRSA (methicillin resistant Staphylococcus aureus) Pacemaker Seizures (HCC) Stroke ([facility]) Past Surgical History: Procedure Laterality Date CHOLECYSTECTOMY [...] completion of Occupational Therapy Plan of Care. [id number] Note* ED Attestation Note - Jacoby Dooley MD - 01/13/2024 11:56 PM EDT I performed a substantive part of the MDM during the patient's E/M visit. I personally made or approved the documented management plan and acknowledge its risk of complications Management/test interpretation discussed with midlevel provider. [facility] Work Phone: [phone]) 318-394308-21-2024 Consult note* Cris Cast RN - 01/13/2024 2:37 PM EDTAssociated Order(s): IP CONSULT TO [facility] 01/13/24 2:37 PM - Liaison received a Home Health Hub consult for [facility] needs. Patient's agency choice is no preference (would prefer not [facility]) Barriers to finding accepting [facility] agency: pt's home location (not many [facility] agencies in area), insurance not widely accepted HH agency: Accepted or Pending Name of agency: [facility] Referrals sent to: (names of agencies) Declined: [facility] [place] - [facility] [place] [facility] Please be aware [facility] agencies have up to 24hours to respond. Many [facility] agencies closed on weekends, may take until Thursday to receive responses. [facility] created for the following services: yes - SN/PT/OT Verify the demographics (residential address) [address] [place] [address] What is the primary number to reach you? [phone] Who is your family physician/primary care physician? Stephany Pelayo PA-C [phone] Following physician will be: (list first name/last name) Do you have a caregiver and/or teachable caregiver (list relationship, name & phone #)? lives with family Estimated Discharge Date (KUNAL): 01/14 If discharge needs change, please reach out to Hub Liaison assigned on treatment team as hub is not notified of additional consults to [facility] once team is following. Thank you. [id number] Consult note* Haven Pope RN - 01/13/2024 2:25 PM EDT Associated Order(s): IP CONSULT TO CARE MANAGEMENT Care Management Consult Note Date: 01/13/2024 Time: 2:25 PM Patient Name: Addie Jean Baptiste Date of : 1975 Reason for Consult: Discharge Plan: Plan A: Home Health Care Services Plan B: Home Health Care Services Discharging Transportation Plan: Auto Discharge Plan Status: Met F2F with pt at bedside, discussed discharge needs. Pt lives with her sonand zirjzmmu-qk-vul, they provide support. She states that she [...] screening addressed. Pt would like [facility] have [facility], she states no preference of an agency but does not wish to have [facility]. Referral to Hub entered. Plan A: Pt will return home with her family, home health services to be arranged. Plan B: Will follow pt for any additional needs. Assessment and Background Information: Living Arrangements: Family members Support Systems: Family members Assistance Needed: n/a Type of Residence: Private residence Prior to Admission Home Care Services: No Current Home Equipment: (Electric scooter) [id number] Note* [facility] - Jos Soto PT - 01/13/2024 12:16 PM EDT PHYSICAL THERAPY VISIT VARIANCE NOTE Attempted to see patient at this time, but unable secondary to: Patient Unavailable (comment) (currently BHAVNA for CAT scan). Will follow up as appropriate. [id number] Note* Quick Note - Chaim Lamb TECHNOLOGIST - 01/13/2024 9:59 AM EDT Patient has an ICD that is MRI compatible but she does not follow up with anyone for her device check. We do not have anyone to send MRI cardiology order form. [id number] Note* Plan of Care - Salena Ghotra LPN - 01/13/2024 9:52 AM EDT Problem: Actual or potential alteration in health [...] level of psychosocial functioning Outcome: Partially Met [id number] [facility]08-21-2024 Consult note* Lucina Henry RN - 01/13/2024 8:44 AM EDTAssociated Order(s): IP CONSULT TO ENTEROSTOMAL THERAPY Consulted to see patient for her left great toe and abdominal wound. Patient sitting on edge of bedwatching TV. Dr Joel Castillo in room as well. Applied medi- honey to her abdominal wound and covered witha Mepilex. Used betadine swab to her left great toe and covered with guaze/tape. Her left great toenail is completely off and her toe is red. Her abdominal wound measures 1cm x 1cm and has a white wound bed and gema wound is red. [id number] Consult note* Shameka Castillo DPM - 01/13/2024 8:29 AM EDTAssociated Order(s): IP CONSULT TO PODIATRY Images from [...] presentation today at this point no surgical inventionat this time we will await the results of the MRI pending those results she may need amputation butat this point she will likely heal with aggressive wound care management. - OR Plans: none - ABX: PO Doxy on discharge - DSG: betadine gauze bandage - WBS: heel weight bearing with marian shoe - XR : reviewed. CT ordered, MRI unable to complete due to ICD Answered questions and rediscussed plan at length with the patient and family if present. Discussedplan with other teams' providers. We discussed with [...] diagnostic recommendations. I explained discharge plans, including therequired post-hospitalization care, treatment, and services. All questions [...] ulcer has been present for a few days.The patient denies nausea, fever, vomiting, chills or [...] , vibratory, and proprioception sensations are: diminished. Achillesand patellar deep tendon reflexes intact. ORTHO: No [...] was drained at home, TECHNOLOGIST PROVIDED HISTORY: Ill ness/Other Reason for exam: Circumferential sloughing of skin of first great toe, poorly controlleddiabetic, concern for osteomyelitis, possible recent abscess that [...] DRUG/FOOD ALLERGIES: Iodides, Ketorolac, Tramadol, Codeine, Propoxyphene n- acetaminophen, Adhesive,Compazine [prochlorperazine], Ct: iodinated contrast- oral and iv dye, Fentanyl, Ibuprofen, Latex, Linezolid, Lorazepam, Nsaids (non- steroidal anti-inflammatory drug), Vancomycin, and Propoxyphene MEDICATIONS: Current Facility-Administered Medications Medication Dose Route Frequency Provider Last Rate Last Admin albuterol (PROVENTIL) 2.5 mg /3 mL (0.083 %) nebulizer solution 2.5 mg 2.5 mg Nebulization Q6H PRN Mk Leigh MD atorvastatin (LIPITOR) tablet 40 mg 40 mg Oral Nightly Mk Leigh MD 40 mg at 01/12/242217 busPIRone (BUSPAR) tablet 30 mg 30 mg Oral Q12H [facility] Mk Leigh MD 30 mg at 01/12/242217 chlorthalidone (HYGROTON) tablet 25 mg 25 mg Oral Daily Mk Leigh MD citalopram (CELEXA) tablet 20 mg 20 mg Oral Daily Mk Leigh MD divalproex (DEPAKOTE) delayed release (DR) tablet 500 mg 500 mg Oral Q12H [facility] Mk Leigh MD hydrOXYzine (ATARAX) tablet 50 [...] Nightly Mk Leigh MD 150 mg at 01/12/242217 QUEtiapine (SEROQUEL) tablet 800 mg 800 mg Oral Nightly Mk Legih MD 800 mg at 01/12/242217 senna (SENOKOT) tablet 8.6 mg 1 tablet [...] Mk Leigh MD 8 mg at 01/12/24 221 traZODone (DESYREL) tablet 50 mg 50 mg [...] to 150 units once daily via pump .50 mL 5 lamoTRIgine (LAMICTAL) 25 MG tablet [...] mg total) by mouth daily . 90 tablet1 citalopram (CELEXA) 20 MG tablet Take 1 (one) tablet (20 mg total) by mouth daily . 30 tablet 2 cyanocobalamin (B-12) 1000 MCG tablet Take 1 (one) tablet (1,000 mcg total) by mouth daily Reasons:[facility]. 90 tablet 1 Dexcom G6 Wide Area Network Engineer Mis Use as directed for continuous glucose [...] mg total) by mouth 2 (two) times aday . 180 tablet 1 metFORMIN (GLUCOPHAGE) 1000 MG tablet Take 1 (one) tablet (1,000 mg total) by mouth 2 (two) times aday . metoprolol tartrate (LOPRESSOR) 25 MG tablet [...] total) by mouth 2 (two) times a day. Omnipod Insulin Refill Crtg ondansetron (ZOFRAN-ODT) 4 MG disintegrating tablet Dissolve 1 (one) tablet (4 mg total) on top of tongue every 8 (eight) hours as needed for nausea . 20 tablet 1 oxyCODONE-acetaminophen (PERCOCET) 5-325 mg per tablet Take 1 (one) tablet by mouth nightly as needed for pain (Days supply per fill: 30) Start: 12/24/23. 30 tablet 0 Shameka Castillo DPM [id number] History and physical note* Enrique Lainez PA-C - 01/12/2024 5:19 PM EDT [facility] HISTORY AND PHYSICAL -- [facility] Patient Name: Addie Jean Baptiste : 1975 MR #: [id number] Admit Date: 01/12/2024 Physicians: Stephany Pelayo PA-C (Family); No ref. provider found (Referring) Addie Jean Baptiste is a 48 y.o. female patient of Stephany Pelayo PA-C with history of T2DM, HTN, bipolar disorder, and chronic back pain presented to [facility] on 01/12/2024 with left toe wound. Left [...] y.o. female patient of Stephany Pelayo PA-C withhistory of T2DM, HTN, bipolar disorder, and chronic back pain presented to [facility] on 01/12/2024 with left toe wound. Pt [...] and iv dye, Fentanyl, Ibuprofen, Latex, Linezolid, Lorazepam,Nsaids (non-steroidal anti-inflammatory drug), Vancomycin, and Propoxyphene Home [...] 2, diabetic peripheral neuropathy Seizure disorder Obesity [id number] History and physical note* Enrique Lainez PA-C - 01/12/2024 5:19 PM EDT [facility] HISTORY AND PHYSICAL -- [facility] Patient Name: Addie Jean Baptiste : 1975 MR #: [id number] Admit Date: 01/12/2024 Physicians: Stephany Pelayo PA-C (Family); No ref. provider found (Referring) Addie Jean Baptiste is a 48 y.o. female patient of Stephany Pelayo PA-C with history of T2DM, HTN, bipolar disorder, and chronic back pain presented to [facility] on 01/12/2024 with left toe wound. Left [...] y.o. female patient of Stephany Pelayo PA-C withhistory of T2DM, HTN, bipolar disorder, and chronic back pain presented to [facility] on 01/12/2024 with left toe wound. Pt [...] and iv dye, Fentanyl, Ibuprofen, Latex, Linezolid, Lorazepam,Nsaids (non-steroidal anti-inflammatory drug), Vancomycin, and Propoxyphene Home [...] patient was past medical history mentioned in KHADAR's note. Physical Examination General Appearance: alert; acutely [...] neuropathy Seizure disorder Obesity documented in this [id number] Emergency department Note* Ace Rico - 01/12/2024 3:44 PM EDT Hourly rounding completed. Patient updated on plan on care. Comfort measures offered, patient givenwater and a warm blanket. No other needs at this time. [id number] Emergency department Note* Ace Rico - 01/12/2024 3:44 PM EDT Hourly rounding completed. Patient updated on plan on care. Comfort measures offered, patient givenwater and a warm blanket. No other needs at this time. * Matheus Chavira PA-C - 01/12/2024 3:24 PM EDT ED PROVIDER NOTE [facility] EMERGENCY DEPARTMENT NAME: Addie Jean Baptiste AGE: 48 y.o. : 1975 VISIT DATE: 01/12/2024 CSN: [id number] PCP: Stephany Pelayo PA-C Clinical Impression: 1. [...] cellulitis, fractures, dislocation, osteomyelitis, compartment syndrome or neurovascularcompromise, lymphangitis, thrombophlebitis, superficial thrombus, DVT, among others. WBC WNL. ESR elevated at 40 but CRP WNL. X-ray does not show any obvious evidence of osteomyelitis but I discussedthis case with podiatry Dr. Olivia Castillo who recommended bringing patient in for IV antibiotics, fluidsand MRI. I discussed this case with [facility] and they are willing to admit patient. Patient reports allergy to linezolid as well as vancomycin and not willing to try them again and so I discussed antibiotic coverage with the pharmacist, Yolie, who recommended doxycycline for MRSA coverage and cefepime f or other gram-negative's/anaerobes. Also I am involving Sheng [...] was inspecting her toenail. Denies any fevers orchills at home but states that she has been nauseous over the past 3 days. Denies any intolerance to oral intake. States that she is on a insulin pump and she goes through about 200 units every 2 to 3 days. Denies any trauma or injury that precipitated this pain. History provided by: Patient ultrasound specialist used: No Wound Check Past Medical History: [...] tablet (1,000 mcg total) by mouth daily Reasons:[facility]. Dexcom G6 Wide Area Network Engineer Misc Use as directed for continuous glucose [...] mg total) by mouth 2 (two) times aday . levothyroxine (SYNTHROID, LEVOTHROID) 75 MCG tablet [...] mg total) by mouth 2 (two) times aday . metoprolol succinate (TOPROL-XL) 50 MG 24 [...] total) by mouth 2 (two) times a day. Omnipod Insulin Refill Crtg ondansetron (ZOFRAN-ODT) 4 [...] BHARAT Austin Zachary Joel, PA-C 01/12/24 1702 * Karon Desai RN - 01/12/2024 2:31 PM EDT [facility] Pt was seeing primary doc and wasreferred to our ED for a Lt great toe inf. Pt had an ongoing toe inf-- last Thursday skin/toe nail came off tip of toe. No drainage/odor notedat this time. * Saira Villatoro RN - 01/12/2024 2:31 PM EDT Bed: 02 Expected date: Expected time: Means of arrival: Comments: 28: 48F toe infection documented in this [id number] Physician Emergency department Note* Matheus Chavira PA-C - 01/12/2024 3:24 PM EDT ED PROVIDER NOTE [facility] EMERGENCY DEPARTMENT NAME: Addie Organ AGE: 48 y.o. : 1975 VISIT DATE: 01/12/2024 CSN: [id number] PCP: Stephany Pelayo PA-C Clinical Impression: 1. [...] cellulitis, fractures, dislocation, osteomyelitis, compartment syndrome or neurovascularcompromise, lymphangitis, thrombophlebitis, superficial thrombus, DVT, among others. WBC WNL. ESR elevated at 40 but CRP WNL. X-ray does not show any obvious evidence of osteomyelitis but I discussedthis case with podiatry Dr. Olivia Castillo who recommended bringing patient in for IV antibiotics, fluidsand MRI. I discussed this case with [facility] and they are willing to admit patient. Patient reports allergy to linezolid as well as vancomycin and not willing to try them again and so I discussed antibiotic coverage with the pharmacist, Yolie, who recommended doxycycline for MRSA coverage and cefepime f or other gram-negative's/anaerobes. Also I am involving Sheng [...] was inspecting her toenail. Denies any fevers orchills at home but states that she has been nauseous over the past 3 days. Denies any intolerance to oral intake. States that she is on a insulin pump and she goes through about 200 units every 2 to 3 days. Denies any trauma or injury that precipitated this pain. History provided by: Patient ultrasound specialist used: No Wound Check Past Medical History: [...] tablet (1,000 mcg total) by mouth daily Reasons:[facility]. Dexcom G6 Wide Area Network Engineer Misc Use as directed for continuous glucose [...] mg total) by mouth 2 (two) times aday . levothyroxine (SYNTHROID, LEVOTHROID) 75 MCG tablet [...] mg total) by mouth 2 (two) times aday . metoprolol succinate (TOPROL-XL) 50 MG 24 [...] total) by mouth 2 (two) times a day. Omnipod Insulin Refill Crtg ondansetron (ZOFRAN-ODT) 4 [...] Procedures . BHARAT Austin Zachary Joel, PA-C 01/12/241701 [id number] History of Present illness Narrative* Stephany Pelayo PA-C - 01/12/2024 2:55 PM EDT [facility] [place] [address] Patient: Addie Jean Baptiste is a 48 [...] mg total) by mouth daily . 90 tablet1 citalopram (CELEXA) 20 MG tablet Take 1 (one) tablet (20 mg total) by mouth daily . 30 tablet 2 cyanocobalamin (B-12) 1000 MCG tablet Take 1 (one) tablet (1,000 mcg total) by mouth daily Reasons:[facility]. 90 tablet 1 Dexcom G6 Wide Area Network Engineer Mis Use as directed for continuous glucose [...] to 150 units once daily via pump .50 mL 5 lamoTRIgine (LAMICTAL) 25 MG tablet Take 1 tab daily for 2 weeks and then twice a day thereafter . 30 tablet 2 lancets Misc 1 Lancet by Miscellaneous route 3 (three) times a day . 100 each 5 levETIRAcetam (KEPPRA) 1000 MG tablet Take 1 (one) tablet (1,000 mg total) by mouth 2 (two) times aday . 180 tablet 1 lidocaine (LMX) 4 [...] total) by mouth 2 (two) times a day. Omnipod Insulin Refill Crtg ondansetron (ZOFRAN-ODT) 4 [...] mg total) by mouth 2 (two) times aday . 60 tablet 5 metoprolol succinate (TOPROL-XL) [...] use included cigarettes. She started smoking about 9years ago. She has a 18.2 pack-year smoking history. She has been exposed to tobacco smoke. She hasnever used smokeless tobacco. She reports current drug use. Drug: Marijuana. She reports that she does not drink alcohol. reports that she has quit smoking. Her smoking use included cigarettes. She started smoking about 9years ago. She has a 18.2 pack-year smoking history. She has been exposed to tobacco smoke. She hasnever used smokeless tobacco. Current medication list and allergies reviewed and updated with patient. Past medical history reviewed. Past Surgical History reviewed. Personal history Social History reviewed. Family history Family History reviewed. REVIEW OF SYSTEMS: Review of Systems Constitutional: Negative for activity change, appetite change, fatigue, fever and unexpected weightchange. HENT: Negative for hearing loss. Eyes: Negative [...] (HCC) Note: This dictation was generated using [employer] voice recognition software. Please excuse any grammatical [...] improve. Stephany Pelayo PA-C documented in this [id number] Emergency department Note* Karon Desai RN - 01/12/2024 2:31 PM EDT Pt was [facility] Pt was seeing primary doc and wasreferred to our ED for a Lt great toe inf. Pt had an ongoing toe inf-- last Thursday skin/toe nail came off tip of toe. No drainage/odor notedat this time. [id number] Emergency department Note* Saira Villatoro RN - 01/12/2024 2:31 PM EDT Bed: 02 Expected date: Expected time: Means of arrival: Comments: 28: 48F toe infection [id number] Telephone encounter Note* Telephone Encounter - Moo Louise RN - 01/11/2024 3:04 PM EDT Last UDS 12/08/23 Last OV 12/08/23 Next OV 02/02/24 [id number] Miscellaneous Notes* Telephone Encounter - Moo Louise RN - 01/11/2024 3:04 PM EDT Last UDS 12/08/23 Last OV 12/08/23 Next OV 02/02/24 documented in this [id number] Telephone encounter Note* Telephone Encounter - Moo Louise RN - 12/21/2023 1:36 PM EDT Pt states Percocet is helping a lot with pain. Requesting 30 day supply. [id number] Miscellaneous Notes* Telephone Encounter - Moo Louise RN - 12/21/2023 1:36 PM EDT Pt states Percocet is helping a lot with pain. Requesting 30 day supply. documented in this [id number] History of Present illness Narrative* Rafaela Castillo MA - 12/14/2023 8:24 AM EDT Ne supplies order faxed to [employer]. Confirmation received. documented in this [id number] Telephone encounter Note* Telephone Encounter - Moo Pressley MA - 12/08/2023 4:35 PM EDT Refill DM medications. Dexcom downloaded for review and insulin RX needs completed [id number] Miscellaneous Notes* Telephone Encounter - Moo Pressley MA - 12/08/2023 4:35 PM EDT Refill DM medications. Dexcom downloaded for review and insulin RX needs completed documented in this [id number] Telephone encounter Note* Telephone Encounter - Moo Pressley MA - 12/08/2023 4:02 PM EDT duplicate [id number] Miscellaneous Notes* Telephone Encounter - Moo Pressley MA - 12/08/2023 4:02 PM EDT duplicate documented in this [id number] Instructions* Patient Instructions* Jim Velez DO - 12/08/2023 2:29 PM EDT 1. Obtain UDS 2. Order water therapy followed by land therapy 3. Discussed dietary modification and weight loss 4. Resume Lyrica 75 mg 1 p.o. twice daily 5. Discussed starting Percocet 5/325 1 p.o. nightly as needed after review of UDS 6. Continue tizanidine 4 mg 2 p.o. nightly only . documented in this [id number] History of Present illness Narrative* Jim VleezDO - 12/08/2023 2:00 PM EDT [facility] Interventional Pain Management Office Note Patient Name: Addie Jean Baptiste Referring Physician: Stephany Pelayo PA-C Date of : 1975 PCP: Stephany Pelayo PA-C Date of Service: 12/09/23 This is a 48 y.o. female who presents to [facility] for an initial consultation. After [...] times a day, but her neurologist has notrestarted it yet. She has noticed an improvement [...] type II in her father; Hypertension in herfather; Seizures in her mother. PACU Vitals 12/08/23 [...] due to peripheral neuropathy. Diminished L4 reflex notedbilaterally. Increased sensitivity with light touch throughout the [...] tablet (1,000 mcg total) by mouth daily Reasons:[facility]. Dexcom G6 Wide Area Network Engineer Misc Use as directed for continuous glucose [...] mg total) by mouth 2 (two) times aday . levothyroxine (SYNTHROID, LEVOTHROID) 75 MCG tablet [...] mg total) by mouth 2 (two) times aday . metoprolol succinate (TOPROL-XL) 50 MG 24 [...] total) by mouth 2 (two) times a day. Omnipod Insulin Refill Crtg ondansetron (ZOFRAN-ODT) 4 [...] OPIOIDS Jim Velez D.O. Interventional Pain Management [facility] documented in this [id number] Instructions* Patient Instructions* Sahara Sanchez MD - 12/02/2023 3:18 PM EDT Thank you for choosing the [facility]. Please get labs on the dates [...] if you are interested in seeing a certified diabetes educator/dietitian. Please call our office at [phone] or send a [employer] message if you have any questions or [...] meal and bedtime CGM documented in this [id number] History of Present illness Narrative* Sahara Sanchez MD - 12/02/2023 2:01 PM EDT Images from the original note were not included. [facility] [address] [place] [address] Addie Jean Baptiste is a 48 y.o. female being seen for Diabetes Mellitus PCP: Stephany Pelayo PA-C Referring Physician: Stephany Pelayo PA-C HPI: She is here for consultation regarding management of type 1 diabetes that was diagnosed at 23 yearsof age. Started on insulin in 2004, switch to OmniPod several years ago. Currently on OmniPod 5. She has relocated from [facility] to [place] in 2022, was following up with endocrinology while in [place]. She is in a wheelchair for today's visit, has difficulty walking due to diabetic neuropathy. Current Diabetic Regimen: Omnipod 5 with Zeinab 2 --unable to download OmniPod 5 as she did not bring her PDM, she is going tobring it on Thursday. 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 90 tablet1 citalopram (CELEXA) 20 MG tablet Take 1 (one) tablet (20 mg total) by mouth daily . 30 tablet 2 cyanocobalamin (B-12) 1000 MCG tablet Take 1 (one) tablet (1,000 mcg total) by mouth daily Reasons:[facility]. 90 tablet 1 ergocalciferol (Vitamin D2) 1,250 mcg (50,000 unit) capsule Take 1 (one) capsule (50,000 Units total) by mouth once a week . 12 capsule 1 hydrOXYzine (ATARAX) 25 MG tablet Take 1 (one) tablet (25 mg total) by mouth daily . insulin lispro (AdmeLOG,HumaLOG) 100 unit/mL injection Inject up to 150 units once daily via pump .10 mL 1 lamoTRIgine (LAMICTAL) 25 MG tablet Take 1 tab daily for 2 weeks and then twice a day thereafter . 30 tablet 2 levETIRAcetam (KEPPRA) 1000 MG tablet Take 1 (one) tablet (1,000 mg total) by mouth 2 (two) times aday . 180 tablet 1 levothyroxine (SYNTHROID, LEVOTHROID) [...] needed . 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 [...] polyneuropathy, with long-term current use of insulin ([facility]) Ambulatory referral to Endocrinology Microalbumin, Urine, Random [...] with any hypoglycemia or persistent hyperglycemia so furtheradjustments can be made. -Reviewed diabetic health maintenance. Ordered urine microalbumin levels, advised her to follow-up ophthalmology regularly 2. Hypertension: Management per primary team. Based on ADA guidelines, goal BP is < 130/80 mmHg.Above goal. Recommend heart healthy Mediterranean or DASH diet pattern for cardiovascular risk reduction. 3. Hyperlipidemia: Management per primary team. ADA guidelines recommend all patients with diabetesages 40-75 take at least moderate-intensity statin in [...] MD Note: This dictation was generated using [employer] voice recognition software. Please excuse any grammatical or spelling errors that may have occurred using the system. documented in this [id number] Telephone encounter Note* Telephone Encounter - Louise Waller LPN - 11/12/2023 1:02 PM EDT Patient also requested alcohol pads (not on med sheet, or previously discontinued) Citalopram is by another provider and was prescribed 5/15 for 30 days with 2 refills. [id number] Miscellaneous Notes* Telephone Encounter - Louise Waller LPN - 11/12/2023 1:02 PM EDT Patient also requested alcohol pads (not on med sheet, or previously discontinued) Citalopram is by another provider and was prescribed 5/15 for 30 days with 2 refills. * Telephone Encounter - Louise Waller LPN - 11/12/2023 12:53 PM EDT ----- Message from Jatinder Green sent at [...] preferred pharmacy listed below? Yes Preferred pharmacies: [facility] [address] [place], [place] [id number] Pt Call Back Number Work Phone Not on file. Patient call back message sent to the primary care clinical pool. Jatinder Green documented in this [id number] Telephone encounter Note* Telephone Encounter - Louise Waller LPN - 11/12/2023 12:53 PM EDT ----- Message from Jatinder Green sent at [...] preferred pharmacy listed below? Yes Preferred pharmacies: [address] [address] Pt Call Back Number Work Phone Not on file. Patient call back message sent to the primary care clinical pool. Jatinder Green [id number] NoteProcedure date: 11/09/2023. Ultrasound findings were Negative for a mass, a retinal detachment Notes No RD or [id number] History of Present illness Narrative* Jackelyn Yuen - 11/09/2023 2:15 PM EDT REASON FOR VISIT Addie Jean Baptiste presents to clinic today for a New Patient visit. Chief Complaint Decreased Vision; Spots and/or Floaters; Eye Pain HISTORY OF PRESENT ILLNESS HPI Decreased Vision In left eye. Spots and/or Floaters In left eye. Eye Pain In left eye. Comments 48 year old female referred for possible elevated IOP, macular edema and retinal hemorrhage withoutdetachment. Pt states this past Thursday night OS [...] time was spent with patient performing the polygraph technician work of this visit. Referring Physician: * Anders London MD - 11/09/2023 2:15 PM EDT Chief Complaint Patient presents with Decreased Vision Spots and/or Floaters Eye Pain HPI Decreased Vision In left eye. Spots and/or Floaters In left eye. Eye Pain In left eye. Comments 48 year old female referred for possible elevated IOP, macular edema and retinal hemorrhage withoutdetachment. Pt states this past Thursday night OS [...] 3:20 PM. Referring Doctor: Jessica Puentes MD [address] [place] [address] Medications: Current Outpatient Medications Medication Sig Albuterol [...] taking: Reported on 11/09/2023) Ergocalciferol 1.25 MG (40634 [place]) capsule Take 1 capsule by mouth [...] Medium Risk (05/11/2023) Received from [facility] Overall Financial Resource Strain (CARDIA) Difficulty of Paying Living Expenses: Somewhat hard Food Insecurity: Food Insecurity Present (05/11/2023) Received from [facility] Hunger Vital Sign Worried About Running Out of Food in the Last Year: Sometimes true Ran Out of Food in the Last Year: Sometimes true Transportation Needs: No Transportation Needs (05/11/2023) Received from [facility] PRAPARE - Transportation Lack of Transportation (Medical): No Lack of Transportation (Non-Medical): No Received from [facility] [place] [facility] Housing Stability: High Risk (05/11/2023) Received from [facility] Housing Stability Vital Sign Unable to Pay [...] -hx of PPV/PRP OS with [facility] 09/2022 -dense VH likely contributing to vision [...] but patient would like to present to [facility] which is closer to the patient. [...] week with general retina [facility] Miscellaneous Notes* Telephone Encounter - Magnolia Chavira LPN - 10/30/2023 8:50 AM EDT Patient called and stated trazodone was discussed at last appt. Patient has switched pharmacies [facility] Last note states: Take trazodone 50mg;1-2 tabs as needed for insomnia. Medication pended. Called patient to notify, no answer. No VM. documented in this [id number] Telephone encounter Note* Telephone Encounter - Magnolia Chavira LPN - 10/30/2023 8:50 AM EDT Patient called and stated trazodone was discussed at last appt. Patient has switched pharmacies [facility] Last note states: Take trazodone 50mg;1-2 tabs as needed for insomnia. Medication pended. Called patient to notify, no answer. No VM. [id number] History of Present illness Narrative* Magnolia Chavira LPN - 10/07/2023 4:12 PM EDT Requested records from [facility]. RENETTA singed. Faxed. Copy sent to scan. documented in this [id number] Instructions* Patient Instructions* Zoë Garcia MD - 10/07/2023 3:10 PM [...] HEALTH CARE FACILITY. --Will request records from [facility]. --Follow up with PCP as scheduled. --Please [...] refills. E) Please call the [facility] if needed, for questions, or other psychiatric concerns. F) Call 911 or present to nearest emergency room if you are feeling unsafe or suicidal. Additionally, individuals can call the Suicide Hotline locally at or nationally at . documented in this [id number] History of Present illness Narrative* Zoë Garcia MD - 10/07/2023 3:00 PM EDT BEHAVIORAL HEALTH PROGRESS NOTE 10/06/2023 Psychiatric Assessment: 48yr old female with past psychiatry h/o BPAD 1;PTSD;SANTOS presents to the clinic for follow up visit.She endorses periods of low mood;decreased motivation;increased anxiety;trouble sleeping due to hearing voices and seeing images.We discussed about a trial of Lamictal to help with mood stabilization; adjust celexa to help with anxiety along with [...] HEALTH CARE FACILITY. --Will request records from [facility]. --Follow up with PCP as scheduled. --Please [...] if you are feeling unsafe or suicidal. Additionally,individuals can call the Suicide Hotline locally at or nationally at . HISTORY: Addie Jean Baptiste, a 48 y.o. female. with past psychiatry h/o of BPAD type 1;PTSD;SANTOS presents to the clinic for a follow up visit.Patient was last seen in July 2023. Lives in [place] with daughter in law and son. Interval [...] falling asleep.Denies using any alcohol or illicit drugs. She reports feeling paranoid about people out to [...] mg total) by mouth nightly ., Disp: 30tablet, Rfl: 0 chlorthalidone (HYGROTON) 25 MG tablet, Take 1 (one) tablet (25 mg total) by mouth daily ., Disp: 90 tablet, Rfl: 1 citalopram (CELEXA) 10 MG tablet, Take half tab daily for 1 week and then 1 tab thereafter ., Disp:30 tablet, Rfl: 1 cyanocobalamin (B-12) 1000 MCG tablet, Take 1 (one) tablet (1,000 mcg total) by mouth daily Reasons: [facility]., Disp: 90 tablet, Rfl: 1 ergocalciferol (Vitamin D2) 1,250 mcg (50,000 unit) capsule, Take 1 (one) capsule (50,000 Units total) by mouth once a week ., Disp: 12 capsule, Rfl: 1 FreeStyle Zeinab 2 [place] Misc, Inject 1 each under the skin 2 (two) times a day ., Disp: , Rfl: FreeStyle Zeinab 2 Sensor Kit, 1 kit by Miscellaneous route every 14 (fourteen) days ., Disp: 2 kit,Rfl: 1 insulin lispro (AdmeLOG,HumaLOG) 100 unit/mL injection, [...] (25 mg total) by mouth nightly ., Disp:90 capsule, Rfl: 1 OLANZapine (ZYPREXA) 5 MG tablet, Take 0.5 (one-half) tablet (2.5 mg total) by mouth 2 (two) times a day As needed for anxiety ., Disp: 30 tablet, Rfl: 0 Omnipod Insulin Refill Crtg, , Disp: , Rfl: ondansetron (ZOFRAN-ODT) 4 MG disintegrating tablet, Dissolve 1 (one) tablet (4 mg total) on top oftongue every 8 (eight) hours as needed for [...] by mouth 2 (two) times a day asneeded for muscle spasms ., Disp: 60 tablet, Rfl: 0 OARRS Review: Reviewed and not on any controlled substances Allergies: Allergies: Iodides, Ketorolac, Tramadol, Codeine, Propoxyphene n-acetaminophen, Adhesive, Compazine [prochlorperazine], Ct: iodinated contrast- oral and iv dye, Fentanyl, Ibuprofen, Latex, Linezolid, Lorazepam,Nsaids (non-steroidal anti-inflammatory drug), Vancomycin, and Propoxyphene BP [...] sound-alike substitutions which may escape proofreading. In suchinstances, original meaning may be extrapolated by contextual derivation. documented in this [id number] Telephone encounter Note* Telephone Encounter - Rafaela Castillo MA - 10/06/2023 1:23 PM EDT Pt requesting refill as her appt was rescheduled into next week from tomorrow. [id number] Miscellaneous Notes* Telephone Encounter - Rafaela Castillo MA - 10/06/2023 1:23 PM EDT Pt requesting refill as her appt was rescheduled into next week from tomorrow. documented in this [id number] Instructions* Patient Instructions* Virgen Campos MD - 09/16/2023 1:44 PM EDT Keep a blood pressure log several times a week Goal is <140/90 or ideally <130/80 documented in this [id number] History of Present illness Narrative* Virgen Campos MD - 09/16/2023 1:19 PM EDT Patient Name: Addie Jean Baptiste MR #: [id number] : 1975 Date of evaluation: 09/16/2023 Referring [...] CT lumbar spine and clinical exam at [facility] at that time Per review of physician [...] Chief Complaint: Chief Complaint Patient presents with Establish Care seizures HOSPITAL FOLLOW UP 04/2023 - Hospital Consult - Dr Adilene Cooper 48 y.o. female with history of uncontrolled DM with insulin pump, neuropathy from diabetes(EMG from prior neuro - our office to [...] CT lumbar spine and clinical exam at [facility] at that time Per review of physician [...] arm and leg numbness and weakness as wellas loss of vision in her left eye [...] – [place] on 01/13/23 for seizures. Patient hasa history of seizures. Reports having seizures weekly; her last seizure was last week. Reports being compliant with her Keppra. Also, per chart review she was evaluated at [facility] 03/06/22 for right side weakness and [...] one. Patient lives with her son and nilbdsgx-va-pnm. She does not drive. Reports that she does not ambulate well due to unsteadiness due to several chronic conditions. Reports that her son and gjuccmlm-lb-sui care for her most of the time. She reports that is [facility] Reports that she manages her own medications [...] medical history of Anxiety, Bipolar 1 disorder ([facility]), Bipolar disorder ([facility]), Chronic back pain, Coronary artery disease, Depression, Diabetes mellitus ([facility]), Hypertension, MRSA (methicillin resistant Staphylococcus aureus), Pacemaker, Seizures ([facility]), and Stroke ([facility]). Social History She reports that she has [...] her father; Hypertension in her father; Seizures inher mother. Current Medications Outpatient Medications Prior to Visit Medication Sig Dispense Refill albuterol 90 mcg/actuation inhaler Inhale 1 (one) puff every 4 to 6 hours as needed for shortness of breath or wheezing . chlorthalidone (HYGROTON) 25 MG tablet Take 1 (one) tablet (25 mg total) by mouth daily . 90 tablet1 cyanocobalamin (B-12) 1000 MCG tablet Take 1 (one) tablet (1,000 mcg total) by mouth daily Reasons:[facility]. 90 tablet 1 ergocalciferol (Vitamin D2) 1,250 mcg (50,000 unit) capsule Take 1 (one) capsule (50,000 Units total) by mouth once a week . 12 capsule 1 FreeStyle Zeinab 2 [place] Misc Inject 1 each under the skin 2 (two) times a day . levETIRAcetam (KEPPRA) 1000 MG tablet Take 1 (one) tablet (1,000 mg total) by mouth 2 (two) times aday . 180 tablet 1 lisinopriL (PRINIVIL,ZESTRIL) 30 [...] to 150 units once daily via pump .10 mL 1 levothyroxine (SYNTHROID, LEVOTHROID) 75 MCG [...] Final Result by Floyd Schafer MD (11/07/2023 5628) 1. No unenhanced evidence of an acute intracranial process. 2. No major-vessel occlusion, high-grade stenosis, or intracranial aneurysm. 3. Scattered atherosclerotic plaque within the neck. No measurable vertebral or carotid stenosis. 4. Mosaic attenuation in the upper lungs suggests air trapping. ART/ads Workstation ID: [id number] CT Abdomen Pelvis Without Contrast Final Result by Kj Chiu DO (07/31/20232203) No definitive acute inflammatory process or obstructive uropathy in the abdomen or pelvis. Workstation ID: [id number] CT Thoracic Spine Without Contrast 3D Final Result by Ko Ovalle MD (07/23/2023 182) Negative for thoracic fracture. Workstation ID: [id number] CT Cervical Spine Without Contrast 3D Final Result by Ko Ovalle MD (07/23/2023 1825) Negative for cervical fracture. Chronic changes as above. Workstation ID: [id number] CT Head Or Brain Without Contrast Final Result by Ko Ovalle MD (07/23/2023 184) Negative for skull fracture or intracranial abnormality. Workstation ID: [id number] CT Thoracic And Lumbar Spine Reconstructed With 3D Final Result by Polo Rolon MD (07/12/20231806) 1. No evidence of pulmonary embolism. 2. [...] thoracic or lumbar spine. There are degenerative changesas described above. SAY/alt Workstation ID: [id number] CTA Pulm Art and CT Abd Pelvis with IV contrast Final Result by Polo Rolon MD (07/12/20231806) 1. No evidence of pulmonary embolism. 2. [...] thoracic or lumbar spine. There are degenerative changesas described above. SAY/alt Workstation ID: [id number] CT Kidney Stone Final Result by Jermaine Peralta MD (07/08/2023 8436) 1. No hydronephrosis. No hydroureter. No nephroureterolithiasis. [...] Calculation (Bezet) 06/18/2023 452 ms Final P Buckner 06/18/2023 53 degrees Final R Buckner 06/18/2023 10 degrees Final T Buckner 06/18/2023 34 degrees Final Sodium 07/31/2023 137 [...] Probable non-acute cardiac injury or late presentation ofacute injury. Final WBC 07/31/2023 7.57 4.50 - [...] Clarity, Urine 07/31/2023 Clear Clear Final Specific [place] 07/31/2023 1.013 1.005 - 1.025 Final pH, [...] Clarity, Urine 07/28/2023 Clear Clear Final Specific [place] 07/28/2023 1.021 1.005 - 1.025 Final pH, [...] Clarity, Urine 07/12/2023 Clear Clear Final Specific [place] 07/12/2023 1.013 1.005 - 1.025 Final pH, [...] Calculation (Bezet) 07/12/2023 435 ms Final P Buckner 07/12/2023 58 degrees Final R Buckner 07/12/2023 12 degrees Final T Buckner 07/12/2023 43 degrees Final Troponin T 07/12/2023 [...] Probable non-acute cardiac injury or late presentation ofacute injury. Final Admission on 07/08/2023, Discharged on 07/09/2023 Component Date Value Ref Range Status Color, Urine 07/08/2023 Yellow Colorless, Yellow Final Clarity, Urine 07/08/2023 Hazy (A) Clear Final Specific [place] 07/08/2023 1.018 1.005 - 1.025 Final pH, [...] Clarity, Urine 06/18/2023 Clear Clear Final Specific [place] 06/18/2023 1.018 1.005 - 1.025 Final pH, [...] Calculation (Bezet) 06/03/2023 423 ms Final P Buckner 06/03/2023 58 degrees Final R Buckner 06/03/2023 14 degrees Final T Buckner 06/03/2023 35 degrees Final Sodium 06/03/2023 135 [...] Probable non-acute cardiac injury or late presentation ofacute injury. Final WBC 06/03/2023 9.61 4.50 - [...] Calculation (Bezet) 05/10/2023 427 ms Final P Buckner 05/10/2023 54 degrees Final T Buckner 05/10/2023 30 degrees Final Extra Tube 05/10/2023 [...] Probable non-acute cardiac injury or late presentation ofacute injury. Final Troponin T 05/11/2023 23 (CH) [...] Clarity, Urine 05/11/2023 Clear Clear Final Specific [place] 05/11/2023 1.017 1.005 - 1.025 Final pH, [...] Urine 04/28/2023 Hazy (A) Clear Final Specific [place] 04/28/2023 1.022 1.005 - 1.025 Final pH, [...] Calculation (Bezet) 04/26/2023 443 ms Final P Buckner 04/26/2023 62 degrees Final R Buckner 04/26/2023 76 degrees Final T Buckner 04/26/2023 -7 degrees Final Sodium 04/26/2023 139 [...] Probable non-acute cardiac injury or late presentation ofacute injury. Final WBC 04/26/2023 9.96 4.50 - [...] that are not included. documented in this [id number] Telephone encounter Note* Telephone Encounter - Laura Child MA - 09/16/2023 12:58 PM EDT Attempted to contact patient to notify of medication adjustments. [id number] Miscellaneous Notes* Telephone Encounter - Laura Child MA - 09/16/2023 12:58 PM EDT Attempted to contact patient to notify of medication adjustments. * Telephone Encounter - Zoë Garcia MD - 09/15/2023 2:45 PM EDT Yes we can have her increase the dose of Celexa to 20mg daily and for sleep adjust her nortryptlline to 50mg nightly,but she needs to discuss with her pcp as well.We can give her zyprexa 5mg;half tabtwice a day as needed for anxiety/agitation. * Telephone Encounter - Laura Child MA - 09/15/2023 2:22 PM EDT Patient called stating that she lost her mother last week and wants something to help with her nerves. Not sleeping well. Nausea from anxiety. [facility] [address] documented in this [id number] Telephone encounter Note* Telephone Encounter - Zoë Garcia MD - 09/15/2023 2:45 PM EDT Yes we can have her increase the dose of Celexa to 20mg daily and for sleep adjust her nortryptlline to 50mg nightly,but she needs to discuss with her pcp as well.We can give her zyprexa 5mg;half tabtwice a day as needed for anxiety/agitation. [id number] Telephone encounter Note* Telephone Encounter - Laura Child MA - 09/15/2023 2:22 PM EDT Patient called stating that she lost her mother last week and wants something to help with her nerves. Not sleeping well. Nausea from anxiety. [facility] [address] [id number] History of Present illness Narrative* Rafaela Castillo MA - 09/10/2023 11:19 AM EDT Hospital bed mattress order faxed to [facility]. Confirmation received. documented in this [id number] History of Present illness Narrative* Stephany Pelayo PA-C - 09/03/2023 1:42 PM EDT Addie Organ 48 y.o. HPI WITH ASSESSMENT [...] chart to make sure that we know thisfor her family history. Patient states she continues to have headaches despite use of nortriptylinewhich was started by Dr. Bhat. Patient states she continues to have muscle spasms which are worseat nighttime along with chronic pain, asking for an increase in her tizanidine to 12 mg to take allin 1 dose, and I discouraged the patient from this as she could have significant side effects including fatigue or syncope. I will plan to refer patient to Pain Management. Patient asking for a different mattress for her hospital bed. Patient states she continues to be incontinent of urine and states she has foul- smelling urine. She was referred to Urology, however, [...] time. Encouraged patient to return to office in4 weeks for next scheduled followup for blood [...] did refer her to Ophthalmology for a diabeticeye exam. Patient has upcoming appointment with Endocrinology, [...] G89.4 338.4 Ambulatory referral to Pain Medicine [facility] 2. Muscle spasms of both lower extremities M62.838 728.85 Ambulatory referral to Pain Medicine 3. Urinary incontinence, unspecified type R32 788.30 4. Chronic nonintractable headache, unspecified headache type R51.9 784.0 G89.29 5. Chronic obstructive pulmonary disease, unspecified COPD type (HCC) J44.9 496 Miscellaneous DME Equipment [facility] 6. Type 2 diabetes mellitus with diabetic polyneuropathy, with long-term current use of insulin ([facility]) E11.42 250.60 FreeStyle Zeinab 2 Sensor Kit Z79.4 357.2 Hemoglobin A1c V58.67 HM URINE MICROALBUMIN Ambulatory referral to Ophthalmology 7. Diabetic peripheral neuropathy ([facility]) E11.42 250.60 357.2 8. Diabetic ulcer of right foot associated with type 2 diabetes mellitus, unspecified part of foot,unspecified ulcer stage ([facility]) E11.621 250.80 L97.519 707.15 9. Hypothyroidism, unspecified type E03.9 244.9 10. Primary hypertension I10 401.9 lisinopriL (PRINIVIL,ZESTRIL) 30 MG tablet Basic Metabolic Panel 11. Hypercholesterolemia E78.00 272.0 12. S/P placement of cardiac pacemaker Z95.0 V45.01 13. Seizures ([facility]) R56.9 780.39 14. Bipolar 1 disorder ([facility]) F31.9 296.7 15. Gastroesophageal reflux disease, unspecified [...] past medical history, past social history, past surgicalhistory and problem list. Past History Past Medical [...] mg total) by mouth daily . 90 tablet1 citalopram (CELEXA) 10 MG tablet Take half tab daily for 1 week and then 1 tab thereafter . 30 tablet 1 insulin lispro (AdmeLOG,HumaLOG) 100 unit/mL injection Inject up to 150 units once daily via pump .10 mL 1 levETIRAcetam (KEPPRA) 1000 MG tablet Take 1 (one) tablet (1,000 mg total) by mouth 2 (two) times aday . 180 tablet 1 levothyroxine (SYNTHROID, LEVOTHROID) [...] tablet (1,000 mcg total) by mouth daily Reasons:[facility]. 90 tablet 1 ergocalciferol (Vitamin D2) 1,250 mcg (50,000 unit) capsule Take 1 (one) capsule (50,000 Units total) by mouth once a week . 12 capsule 1 FreeStyle Zeinab 2 [place] Misc Inject 1 each under the skin [...] change, appetite change, fatigue,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 wound care)] Yes, SN/PT/OT/aide Verify the demographics (residential address) [address] [place] [address] What is the primary number to reach you? [phone] Who is your family physician/primary care physician? PCP Sheng [facility] [phone] Message left with office Do you have a caregiver and/or teachable caregiver (list relationship, name & phone #)? Shi Jean Baptiste (Mother) [phone] (Home Phone) Has the patient been added to capacity board/tracking sheet? ([facility]) Velia without limitations Estimated Discharge Date (KUNAL): 03/30 If discharge needs change, please reach out to liaison assigned on treatment team as hub is not notified of new consults once team is following. Thank you. * Elisa Townsend RN - 03/30/2023 11:36 AM ESTAssociated Order(s): IP CONSULT TO CARE MANAGEMENT Care Management Consult Note Date: 03/30/2023 Time: 11:37 AM Patient Name: Addie Jean Baptiste Date of : 1975 Reason for Consult: Discharge Needs Discharge Plan: D/C Disposition: Home Health Care Services Related to Current Admission?: Yes Post-Acute Patient Choice 1: [facility] Post-Acute Patient Choice 2: no preference HME: Other (Comment) (Transport wheelchair) HME Agency: [facility] Community/Outpatient Referral: Community resource information Options Reviewed: Explained services/benefits, List provided Reason for Choice: Patient/Family preference Discharging Transportation Plan: Transportation Type: Auto Discharge Plan Status: Met with patient to review discharge needs, patient confirmed that she livesat home with her son and DIL, and stated that the plan is to return home at discharge, her DIL willprovide transport. Patient confirmed that she normally uses a power wheelchair at baseline, but would like to be able to get a little stronger so she can walk a few feet, patient is requesting home Health services. Patient will need SN for medication management, PT/OT, and BUDGET ANALYST. After review of options, patient chose [facility] [...] she stated she could also use a front- wheeled walker. Order placed, F2F note completed, and Nataly with [facility] contacted, CM awaiting notification on if insurance will approve. Patient denies any food, medication, or financial needs at this time. CM called and spoke with [facility] Wildlife Removal Specialist, Ashley [phone], she confirmed that patient has established with [...] application, as patient could benefit from long-term BUDGET ANALYST, medication management, and incontinence supplies. CHW Ravi [...] to chronic pain:: Yes documented in this [id number] Note* Quick Note - Harshad Rizzo MD - 03/30/2023 11:54 AM EST IQGX-DC-OUIE ENCOUNTER FOR HOME MEDICAL EQUIPMENT PATIENT: Addie Jean Baptiste : 1975 Statement of Care: I certify that Addie Jean Baptiste is under my care and that I had a ucde-js-mryy encounter with this patient today to evaluate and discuss the need for home medical equipment. I certify that based on the findings of this evaluation, which included but was not limited to the gvqh-za-ewjf requirements, the following home medical equipment is medically necessary: Transport wheelchair for the treatment of mobility limitations to enable participation in mobility-related activities of daily living (MRADL) in the home. Based on the current evaluation, patient can safely use prescribed equipment to perform mobility-related activities of daily living (MRADL) in the home.. Signed by: Harshad Rizzo MD on 03/30/2023 [id number] Consult note* Elisa Townsend RN - 03/30/2023 11:36 AM EST Associated Order(s): IP CONSULT TO CARE MANAGEMENT Care Management Consult Note Date: 03/30/2023 Time: 11:37 AM Patient Name: Addie Jean Baptiste Date of : 1975 Reason for Consult: Discharge Needs Discharge Plan: D/C Disposition: Home Health Care Services Related to Current Admission?: Yes Post-Acute Patient Choice 1: [facility] Post-Acute Patient Choice 2: no preference HME: Other (Comment) (Transport wheelchair) HME Agency: [facility] Community/Outpatient Referral: Community resource information Options Reviewed: Explained services/benefits, List provided Reason for Choice: Patient/Family preference Discharging Transportation Plan: Transportation Type: Auto Discharge Plan Status: Met with patient to review discharge needs, patient confirmed that she livesat home with her son and DIL, and stated that the plan is to return home at discharge, her DIL willprovide transport. Patient confirmed that she normally uses a power wheelchair at baseline, but would like to be able to get a little stronger so she can walk a few feet, patient is requesting home Health services. Patient will need SN for medication management, PT/OT, and BUDGET ANALYST. After review of options, [facility] [...] she stated she could also use a front- wheeled walker. Order placed, F2F note completed, and Nataly with [facility] contacted, CM awaiting notification on if insurance will approve. Patient denies any food, medication, or financial needs at this time. CM called and spoke with [facility] Wildlife Removal Specialist, Ashley [phone], she confirmed that patient has established with [...] January, a Waiver application was sent to [facility], but patient stated that no one ever contacted her regarding the application. CHW consulted to submit a new Waiver application, as patient could benefit from long-term BUDGET ANALYST, medication management, and incontinence supplies. CHCassandra Rodrigues notified via in-basket. 1400 update - Nataly [...] routine activities due to chronic pain:: Yes [id number] Note* Plan of Care - Dannielle Bui RN - 03/29/2023 10:52 PM EST Problem: Actual or potential alteration in health [...] of comfort function goal Outcome: Partially Met [id number] History and physical note* Enrique Lainez PA-C - 03/29/2023 1:43 PM EST [facility] HISTORY AND PHYSICAL -- [facility] Patient Name: Addie Jean Baptiste : 1975 MR #: [id number] Admit Date: 03/29/2023 Physicians: System, Provider Not In (Family); No ref. provider found (Referring) Addie Jean Baptiste is a 47 y.o. female patient of System, Provider Not In with history of T2DM, seizure disorder, HTN, and chronic back pain presented to [facility] with chest pain. Atypical chest pain Elevated [...] HTN, and chronic back pain presented to [facility] with chest pain. Pt states that her pain started a few days ago and was intermittent, but it has gotten worse the past day. The pain is described as a substernal centralized chest pain that is rated asan 8 out of 10. Nothing makes it [...] Hennessy MD - 03/29/2023 2:56 PM EST [facility] NOTE ADDENDUM I saw and examined the [...] Diabetic peripheral neuropathy Seizure disorder Morbid obesity [id number] History and physical note* Enrique Lainez PA-C - 03/29/2023 1:43 PM EST [facility] HISTORY AND PHYSICAL -- [facility] Patient Name: Addie Organ : 1975 MR #: [id number] Admit Date: 03/29/2023 Physicians: System, Provider Not In (Family); No ref. provider found (Referring) Addie Organ is a 47 y.o. female patient of System, Provider Not In with history of T2DM, seizure disorder, HTN, and chronic back pain presented to [facility] with chest pain. Atypical chest pain Elevated [...] HTN, and chronic back pain presented to [facility] with chest pain. Pt states that her pain started a few days ago and was intermittent, but it has gotten worse the past day. The pain is described as a substernal centralized chest pain that is rated asan 8 out of 10. Nothing makes it [...] Hennessy MD - 03/29/2023 2:56 PM EST [facility] NOTE ADDENDUM I saw and examined the [...] Seizure disorder Morbid obesity documented in this [id number] Emergency department Note* Karon Desai RN - 03/29/2023 12:49 PM EST Called lab for HFP, and lipase- not troponin at this time. [id number] Emergency department Note* Karon Desai RN - 03/29/2023 12:49 PM EST Hourly rounding completed. Comfort measures and needs addressed. Pt resting on cot (notable chest rise and fall) with call light in reach. Pt updated on plan of care. [id number] Emergency department Note* Karon Desai RN - 03/29/2023 12:49 PM EST Called lab for HFP, and lipase- not troponin at this time. * Karon Desai RN - 03/29/2023 12:49 PM EST Hourly rounding completed. Comfort measures and needs addressed. Pt resting on cot (notable chest rise and fall) with call light in reach. Pt updated on plan of care. * Karon Desai RN - 03/29/2023 11:36 AM EST Hourly rounding completed. Comfort measures and needs addressed. Pt resting on cot (notable chest rise and fall) with call light in reach. Pt updated on plan of care. * Keely Aguero RN - 03/29/2023 10:30 AM EST Called lab for blood work again RNO * Keely Aguero RN - 03/29/2023 9:53 AM EST Lab called for blood draw * Keely Aguero RN - 03/29/2023 9:41 AM EST Pt states I have right sided sharp pain on the side of my stomach also. * Keely Aguero RN - 03/29/2023 9:37 AM EST Per EMS She has had chest pain for 4 days. We have Asprin and nitroglycerin in route. She is pacedon the 4 lead. Pt states mid sternal chest pain 01/01 * Alem Condon RN - 03/29/2023 9:36 AM EST Bed: 17 Expected date: Expected time: Means of arrival: Comments: 26 documented in this [id number] Emergency department Note* Karon Desai RN - 03/29/2023 11:36 AM EST Hourly rounding completed. Comfort measures and needs addressed. Pt resting on cot (notable chest rise and fall) with call light in reach. Pt updated on plan of care. [address]2023 Emergency department Note* Keely Aguero RN - 03/29/2023 10:30 AM EST Called lab for blood work again [place] [id number] Emergency department Note* Keely Aguero RN - 03/29/2023 9:53 AM EST Lab called for blood draw [address]2023 Emergency department Note* Keely Aguero RN - 03/29/2023 9:41 AM EST Pt states I have right sided sharp pain on the side of my stomach also. [id number] Emergency department Triage note* Keely Aguero RN - 03/29/2023 9:37 AM EST Per EMS She has had chest pain for 4 days. We have Asprin and nitroglycerin in route. She is pacedon the 4 lead. Pt states mid sternal chest pain 01/01 [id number] Emergency department Note* Alem Condon RN - 03/29/2023 9:36 AM EST Bed: 17 Expected date: Expected time: Means of arrival: Comments: 26 [id number] Hospital course Narrative* Harshad Rizzo MD - 02/20/2023 12:04 PM EDT [facility] DISCHARGE SUMMARY Addie Jean Baptiste Admitted: 02/17/2023 Discharge Date: 02/20/23 Clinical Summary Addie Jean Baptiste is a 47 y.o. female patient of System, Provider Not In with history of diabetes, hypertension, hypothyroidism, COPD, and GERD, now presented to [facility] with chest pain. Assessment and Plan Chest [...] on 02/20/23, 12:04 PM documented in this [id number] Note* CDI Query - Harshad Rizzo MD - 02/20/2023 10:24 AM EDT Noted monitoring of Cr. Clinical Indicators: Admitted with chest pain then had stress test done on 9/ Receiving 0.9NS at 100 ml/hr and did get two 500 ml fluid boluses of 0.9*NS Cr 0.99 2.04 1.19 Please document the corresponding diagnosis reflective of these findings. For Example: SOLO, resolving Elevated Cr due to (please specify) Other (please specify) Unable to determine Thank you Sole Noel RN, BSN Clinical Metal Solderer [phone] After business hours you may contact Shannen Manley at [phone] (Weekdays until 10 PM and weekends 8 AM -10 PM) [id number] Miscellaneous Notes* CDI Query - Harshad Rizzo MD - 02/20/2023 10:24 AM EDT Noted monitoring of Cr. Clinical Indicators: Admitted with chest pain then had stress test done on 9/ Receiving 0.9NS at 100 ml/hr and did get two 500 ml fluid boluses of 0.9*NS Cr 0.99 2.04 1.19 Please document the corresponding diagnosis reflective of these findings. For Example: SOLO, resolving Elevated Cr due to (please specify) Other (please specify) Unable to determine Thank you Sole Noel RN, BSN Clinical Metal Solderer [phone] After business hours you may contact Shannen Manley at [phone] (Weekdays until 10 PM and weekends 8 AM -10 PM) * Utilization Review - Pavithra Franco RN - 02/19/2023 2:12 PM EDT [facility] Utilization Review Notes EMERGENCY TEMPLATE HISTORY OF PRESENT ILLNESS: 47 y.o. female patient of System, Provider Not In with history of diabetes, hypertension, hypothyroidism, COPD, and GERD, now presented to [facility] with chest pain. Beginning around 4 PM, the patient developed new onset chest pain, described as a tightness sensation, localized to theright chest, constant since initial onset, radiating into [...] 12 mg to 4 mg). Suspect hypotension primarilymedication induced, low suspicion for infection. Chest pain, [...] NS IV AT 100 ML/HR DISPO: TBD * Quick Note - Mk Leigh MD - 02/19/2023 6:11 AM EDT Notified of some relative hypotension overnight and into the morning. Discontinued home Lisinopril and metoprolol. Also, 1L IVF bolused and placed on mIVF for another liter. Night time doses of seroquel (from 800 mg to 400 mg) and Zanaflex reduced (from 12 mg to 4 mg). Suspect hypotension primarilymedication induced, low suspicion for infection. * Quick Note - Harshad Rizzo MD - 02/18/2023 10:19 AM EDT Patient seen and examined at bedside during morning rounds. Admitted this morning for evaluation of chest pain. Feeling better; no acute distress. denies any shortness of breath, palpitation, chest pain, fever, chills, cough, nausea, vomiting, diarrhea, constipation or headache. Labs and imaging studies reviewed Nuclear stress test has been ordered We will obtain 2D echo Rest of management as per H&P * Plan of Care - Monique Grande RN - 02/18/2023 3:10 AM EDT Problem: Actual or potential alteration in health [...] falls Outcome: Partially Met documented in this [id number] Consult note* Zayda Dorantes RN - 02/20/2023 9:10 AM EDTAssociated Order(s): IP CONSULT TO RAILROAD PURCHASING AGENT Attempted to meet with patient for Diabetes Education this am. She refused stating, I want no part of it . Patient also refused education at her December admission. [id number] Consult note* Zayda Dorantes RN - 02/20/2023 9:10 AM EDTAssociated Order(s): IP CONSULT TO RAILROAD PURCHASING AGENT Attempted to meet with patient for Diabetes Education this am. She refused stating, I want no part of it . Patient also refused education at her December admission. * Zayda Dorantes RN - 02/19/2023 9:00 AM EDT Attempted to meet with patient this am for Diabetes Education. Per primary nurse, the patient is not clinically appropriate at this time. She is drowsy and hard to arouse. Will check back at a later time. * Jalyn Yanes ANA LAURA - 02/18/2023 3:20 PM EDTAssociated Order(s): IP CONSULT TO CARE MANAGEMENT Care [...] are currently staying in a motel in [place]. Pt asking for help withhousing. SW asked pt if she has applied [...] she is also wanting to get an Geological Scout here in [place] as hers is still in [place]. Pt is agreeable to Waiver referral. SW also suggested looking into [employer] Sleeping rooms, or otheraffordable housing options. She did report she is [...] Home Care Services: No documented in this [id number] Note* Utilization Review - Pavithra Franco RN - 02/19/2023 2:12 PM EDT Central [facility] Utilization Review Notes EMERGENCY TEMPLATE HISTORY OF PRESENT ILLNESS: 47 y.o. female patient of System, Provider Not In with history of diabetes, hypertension, hypothyroidism, COPD, and GERD, now presented to [facility] with chest pain. Beginning around 4 PM, the patient developed new onset chest pain, described as a tightness sensation, localized to theright chest, constant since initial onset, radiating into [...] 12 mg to 4 mg). Suspect hypotension primarilymedication induced, low suspicion for infection. Chest pain, [...] NS IV AT 100 ML/HR DISPO: TBD [id number] History of Present illness Narrative* Harshad Rizzo MD - 02/19/2023 12:33 PM EDT [facility] PROGRESS NOTE Addie Jean Baptiste is a 47 y.o. female patient of System, Provider Not In with history of diabetes, hypertension, hypothyroidism, COPD, and GERD, now presented to [facility] with chest pain. Assessment and Plan Chest [...] cough, nausea, vomiting, diarrhea, constipation or headache. Bloodpressure low 70s systolic. No fever or any [...] PM Laboratory, Microbiology, Radiology, Cardiology, and Medications * Dannielle Barrett RPh,PharmD - 02/18/2023 3:48 PM EDT Pharmacotherapy Note: CSII Pump Verification Pharmacist has [...] not been spiked, are well within the pediatric neuropsychologist expiration date and have been stored at room temperature (<28 days). Continue with insulin regimen as written. Please call pharmacy with any questions. Pharmacist: Dannielle Barrett Date: 02/18/2023 Contact Information: [phone] Electronically signed by Dannielle Barrett [facility],PharmD at 02/18/2023 4:13 PM EDT documented in this [id number] Consult note* Zayda Dorantes RN - 02/19/2023 9:00 AM EDT Attempted to meet with patient this am for Diabetes Education. Per primary nurse, the patient is not clinically appropriate at this time. She is drowsy and hard to arouse. Will check back at a later time. [id number] Note* Quick Note - Mk Leigh MD - 02/19/2023 6:11 AM EDT Notified of some relative hypotension overnight and into the morning. Discontinued home Lisinopril and metoprolol. Also, 1L IVF bolused and placed on mIVF for another liter. Night time doses of seroquel (from 800 mg to 400 mg) and Zanaflex reduced (from 12 mg to 4 mg). Suspect hypotension primarilymedication induced, low suspicion for infection. [facility] Work Phone: [phone] Hospital Discharge instructions* Discharge Instr - Care Coordination* Jalyn Yanes LISW - 02/18/2023 3:30 PM EDT ADDITIONAL HOUSING INFORMATION FOR AFFORDABLE HOUSING OPTIONS: [facility] Mobile Home Nunes [facility] Apart[facility]clean hospital [place] [address] [place] [place] [address] [phone] 1-3 bedroom metro accepted [facility] [address] [place] [address] [phone] [phone] [address] [phone] [facility] [address] [facility] A[address] [place] [phone] 1-3bedroom subsidized housing [place] [address] [place] [phone] [employer] [address] [phone] [place] [address] [place] [address] [facility] [phone] [place] [address] [phone] [place] [address] [facility] [phone] [place] [address] [phone] [facility] [address] [phone] [place] [address] [phone] [facility] [phone] & 2 bedrooms metro accepted [place] [address] [facility] [address] [facility] [address] [phone] 1 & 2 bedrooms metro accepted [facility] [address] [phone] [employer] [address] [facility] [address] [phone] [facility] [address] [facility] [phone] [address] [phone] 1-3 bedroom metro accepted [facility] [place] [address] [facility] [address] [phone] 1-3 bedroom metro accepted [place] [address] [place] [address] [phone] [facility] nursing home [address] [phone] [place] [address] [facility] [phone] 1-3 bedroom available [facility] [address] [phone] 1-3 bedroom metro accepted [address] [phone] [place] [address] [phone] [address] [facility] [address] [facility] [address] [phone] Duplexs and Houses [address] [phone] Johnny Wall [phone] [employer] [address] [phone] Karen Stauffer [phone] [facility] Properties [address] Zonia Maldonado [phone] [facility] [address] [facility] [address] [phone] [facility] [phone] [facility] [address] [phone] Alpha and [employer] Properties [phone] [facility] [address] [facility] Edilberto [place] [phone] Nikos Thomas [phone] [place] [[email or web address]] Apaprtment [phone] Robert Duran [phone] METRO [place] [phone] [facility] Housing [address] [facility] [address] [place] [phone] We Rent Velia (Chris Matamor[place]) [phone] Income Based Housing Javier Mello [email or web address] [facility] Apartments (Section 8) Bill Your [phone] [address] Apartments (Section 8) Sleeping Rooms [facility] (Section 8) [employer] [phone] [employer] Terece ( must be senior or disabled) [facility] Sleeping Rooms [phone] [address] Towers (must be senior or disabled) [facility] Sleeping Rooms - [phone] Tony Turner ( must be senior or disabled) Caryn Mario - [phone] Maximino Portillo - [phone] [employer] Websites to find Rentals https://[email or web address]/groups/476861327913591/ www.rent.Phone Warrior https://www.CargoSense.com/groups/027489508807525 www.apartments.Phone Warrior https://www.CargoSense.Phone Warrior/groups/2130321477801558/ www.rentals.Phone Warrior https://www.CargoSense.Phone Warrior/groups/502499742806990/ [employer]/cjtyib-hzzbsf-ye/rentals/ [facility] FOOD ASSISTANCE [facility] [phone] By appointment only Thursday-Thursday between 10am and 3pm ([address] [facility]. Must provide photoID and proof of address) [facility] [phone] , Thu, Thu, Sat 10a to 12p. 3p to 5p. ([facility]. Photo ID and proof of address required) [facility] [phone] 3rd Sat of each month, 10a to 12p ([address] [facility]. photo ID and proof of address required) Life (LINK) [phone] 4th Tues of each month. Call on Thursday between 10a and 2p to schedule ([address]) [employer] [phone] Thursday 2pm-6pm 1st Thursday Produce 2pm to 4pm [facility] [phone] ([address] [facility]. Call to inquire) [facility] [phone] Monthly giveaway, call for info (087 [facility] [facility] [phone] Wednesdays 830am to 10am bread giveaway only ([address]) [employer] [phone] 3p to 5p ([address]. Photo ID and proof of address required) [employer] [facility] [phone] call for info ([address] [facility]) [employer] Food Pant[employer] [phone] Mondays and Wed 4p to 7p, soup kitchen Tuesdays 530p to 6p ([address] [facility] Photo ID and proof of address required) [facility] Food Pantry [phone] call for info ([address]) [facility] Commodity Supplemental Food Program Contact Fatimah at [phone] Food box distribution for income eligible [facility] seniors 60+ ([address]) * Attachments The following attachments cannot be sent through Care Everywhere. * Chest Pain (Stateless) documented in this [id number] Consult note* Jalyn Yanes LISW - 02/18/2023 3:20 PM EDTAssociated Order(s): IP CONSULT TO CARE MANAGEMENT Care [...] are currently staying in a motel in [place]. Pt asking for help withhousing. SW asked pt if she has applied [...] she is also wanting to get an Geological Scout here in [place] as hers is still in [place]. Pt is agreeable to Waiver referral. SW also suggested looking into [employer] Sleeping rooms, or otheraffordable housing options. She did report she is able to make calls to places. Agreeable to housing help info on [employer]. SW faxed Waiver Referral. SW placed housing options on [facility] Community Resource Packet provided to pt. SW placed ambulatory referral to Endocrinology. Assessment and Background Information: Living Arrangements: Homeless Support Systems: Family members Assistance Needed: denies Type of Residence: (Hotel) Prior to Admission Home Care Services: No [id number] Note* Quick Note - Harshad Rizzo MD - 02/18/2023 10:19 AM EDT Patient seen and examined at bedside during morning rounds. Admitted this morning for evaluation of chest pain. Feeling better; no acute distress. denies any shortness of breath, palpitation, chest pain, fever, chills, cough, nausea, vomiting, diarrhea, constipation or headache. Labs and imaging studies reviewed Nuclear stress test has been ordered We will obtain 2D echo Rest of management as per H&P [id number] Note* Plan of Care - Monique Grande RN - 02/18/2023 3:10 AM EDT Problem: Actual or potential alteration in health [...] Goal: Absence of falls Outcome: Partially Met [id number] Physician Emergency department Note* Hayde Pickering, DO - 02/18/2023 12:25 AM EDTAssociated Order(s): ECG 12 Lead Images from the original note were not included. ED PROVIDER NOTE [facility] EMERGENCY DEPARTMENT NAME: Addie Organ AGE: 47 y.o. : 1975 VISIT DATE: 02/17/2023 CSN: [id number] PCP: System, Provider Not In Clinical Impression: [...] and alert, appears uncomfortable upon initial evaluation, labswith no leukocytosis or anemia, hyperglycemia at 347 [...] plan, .I reviewed the patient's case with [facility] hospitalist whom accepted the patient for further management and monitoring. Amount and/or Complexity of Data Reviewed External Data Reviewed: notes. Details: Previous documentation of history of CAD noted in epic, patient reports Labs: ordered. Decision-making details documented in ED Course. Radiology: ordered and independent interpretation performed. Decision-making details documented in ED Course. ECG/medicine tests: ordered and independent interpretation performed. Decision- making details documented in ED Course. Risk Parenteral [...] mg total) by mouth 2 (two) times aday . levothyroxine (SYNTHROID, LEVOTHROID) 75 MCG tablet [...] unit/mL (3 mL) InPn Inject 25 (twenty five)Units under the skin nightly . metFORMIN (GLUCOPHAGE) 1000 MG tablet Take 1 (one) tablet (1,000 mg total) by mouth 2 (two) times aday . omeprazole (PRILOSEC) 40 MG capsule Take 1 (one) capsule (40 mg total) by mouth 2 (two) times a day. ondansetron (ZOFRAN-ODT) 4 MG disintegrating tablet Dissolve [...] nausea. Negative for blood in stool, diarrhea andvomiting. Genitourinary: Negative for dysuria and hematuria. Musculoskeletal: [...] src Pulse Resp SpO2 Height Weight 02/17/23 8732 (!) 151/109 -- -- 91 18 98 [...] Yellow Clarity, Urine Hazy (A) Clear Specific [place] 1.025 1.005 - 1.025 pH, Urine 5.0 [...] 2. Chronic and incidental findings as above. DEEPA/[facility] Workstation ID: [id number] CT Head Or Brain [...] Ladan Gonzalez Karen Michelle, DO 02/18/23 0040 [id number] Emergency department Note* Hayde Pickering, - 02/18/2023 12:25 AM EDTAssociated Order(s): ECG 12 Lead Images from the original note were not included. ED PROVIDER NOTE [facility] EMERGENCY DEPARTMENT NAME: Addie Jean Baptiste AGE: 47 y.o. : 1975 VISIT DATE: 02/17/2023 CSN: [id number] PCP: System, Provider Not In Clinical Impression: [...] and alert, appears uncomfortable upon initial evaluation, labswith no leukocytosis or anemia, hyperglycemia at 347 [...] plan, .I reviewed the patient's case with [facility] hospitalist whom accepted the patient for further management and monitoring. Amount and/or Complexity of Data Reviewed External Data Reviewed: notes. Details: Previous documentation of history of CAD noted in epic, patient reports Labs: ordered. Decision-making details documented in ED Course. Radiology: ordered and independent interpretation performed. Decision-making details documented in ED Course. ECG/medicine tests: ordered and independent interpretation performed. Decision- making details documented in ED Course. Risk Parenteral [...] mg total) by mouth 2 (two) times aday . levothyroxine (SYNTHROID, LEVOTHROID) 75 MCG tablet [...] unit/mL (3 mL) InPn Inject 25 (twenty five)Units under the skin nightly . metFORMIN (GLUCOPHAGE) 1000 MG tablet Take 1 (one) tablet (1,000 mg total) by mouth 2 (two) times aday . omeprazole (PRILOSEC) 40 MG capsule Take 1 (one) capsule (40 mg total) by mouth 2 (two) times a day. ondansetron (ZOFRAN-ODT) 4 MG disintegrating tablet Dissolve [...] nausea. Negative for blood in stool, diarrhea andvomiting. Genitourinary: Negative for dysuria and hematuria. Musculoskeletal: [...] Yellow Clarity, Urine Hazy (A) Clear Specific [place] 1.025 1.005 - 1.025 pH, Urine 5.0 [...] Ladan Gonzalez Karen Michelle, DO 02/18/23 0040 * Eliana Khan RN - 02/17/2023 9:35 PM EDT Patient is complaining of chest pain all over, a headache, and right sided abdominal pain that radiates to her back. * Eliana Khan RN - 02/17/2023 9:16 PM EDT Patient arrived from home via [facility] report Patient has been complaining of some chest tightness and SOB since around 4pm. Patient indicated that she feels that her chest is tight and the room is spinning. Patient had normal vitals in route. Asprin and nitroglycerin given in route. See EMS report * Meaghan Devlin RN - 02/17/2023 9:16 PM EDT Bed: 10 Expected date: Expected time: Means of arrival: Comments: 26- CP documented in this [id number] History and physical note* Ambrosio Butcher MD - 02/18/2023 12:21 AM EDT [facility] HISTORY AND PHYSICAL -- [facility] Patient Name: Addie Jean Baptiste : 1975 MR #: [id number] Admit Date: 02/17/2023 Physicians: System, Provider Not In (Family); No ref. provider found (Referring) Addie Jean Baptiste is a 47 y.o. female patient of System, Provider Not In with history of diabetes, hypertension, hypothyroidism, COPD, and GERD, now presented to [facility] with chest pain. Chest pain Admit patient. [...] hypothyroidism, COPD, and GERD, now presented to [facility] with chest pain. Beginning around 4 PM, [...] normal coloration Psych: normal mood and affect [id number] History and physical note* Ambrosio Butcher MD - 02/18/2023 12:21 AM EDT [facility] HISTORY AND PHYSICAL -- [facility] Patient Name: Addie Jean Baptiste : 1975 MR #: [id number] Admit Date: 02/17/2023 Physicians: System, Provider Not In (Family); No ref. provider found (Referring) Addie Jean Baptiste is a 47 y.o. female patient of System, Provider Not In with history of diabetes, hypertension, hypothyroidism, COPD, and GERD, now presented to [facility] with chest pain. Chest pain Admit patient. [...] hypothyroidism, COPD, and GERD, now presented to [facility] with chest pain. Beginning around 4 PM, [...] normal mood and affect documented in this [id number] Emergency department Note* Eliana Khan RN - 02/17/2023 9:35 PM EDT Patient is complaining of chest pain all over, a headache, and right sided abdominal pain that radiates to her back. [id number] Emergency department Note* Eliana Khan RN - 02/17/2023 9:16 PM EDT Patient arrived from home via [facility] report Patient has been complaining of some chest tightness and SOB since around 4pm. Patient indicated that she feels that her chest is tight and the room is spinning. Patient had normal vitals in route. Asprin and nitroglycerin given in route. See EMS report [id number] Emergency department Note* Meaghan Devlin RN - 02/17/2023 9:16 PM EDT Bed: 10 Expected date: Expected time: Means of arrival: Comments: 26- CP [id number] Instructions* Patient Instructions* Josué Christianson DO - 02/09/2023 3:52 PM EDT Images from [...] doorway. You should feel a stretch in theback of your thigh. Hold this position for [...] repeat 10 to 20 times. Developed by [employer]. Published by [employer]. 2009 [employer] and/or its affiliates. All Rights Reserved. documented in this [id number] History of Present illness Narrative* Josué Christianson DO - 02/09/2023 2:36 PM EDT CC: Knee pain HPI HISTORY: Addie Jean [...] (two) times a day States takes for 1more week then goes to higher dose . [...] as needed for muscle spasms. 06/26/17 Michi San DO diclofenac sodium 3 % Gel Apply [...] pick it up tomorrow at pharmacy - [facility] in [place] . 06/01/20 Manuel Cardona MD fluticasone-salmeterol (ADVAIR [...] unit/mL (3 mL) InPn Inject 25 (twenty five)Units under the skin nightly . 01/14/23 02/13/23 Rush Hernadez CNP levETIRAcetam (KEPPRA) 1000 MG tablet Take 1 (one) tablet (1,000 mg total) by mouth 2 (two) times aday . 01/13/23 Fab Head MD levothyroxine (SYNTHROID, LEVOTHROID) 75 MCG tablet Take 1 (one) tablet (75 mcg total) by mouth . 07/23/18 Manuel Cardona MD metFORMIN (GLUCOPHAGE) 1000 MG tablet Take 1 (one) tablet (1,000 mg total) by mouth 2 (two) times aday . 03/29/15 Manuel Cardona MD metoprolol succinate (TOPROL-XL) 50 MG 24 hr tablet Take by mouth . Manuel Cardona MD metoprolol tartrate (LOPRESSOR) 25 MG tablet Take 1 (one) tablet (25 mg total) by mouth 2 (two) times a day . Manuel Cardona MD omeprazole (PRILOSEC) 40 MG capsule Take 1 (one) capsule (40 mg total) by mouth 2 (two) times a day. Manuel Cardona MD Omnipod Insulin Refill Crtg 04/16/20 Manuel Cardona MD ondansetron (ZOFRAN-ODT) 4 MG disintegrating tablet Dissolve 1 (one) tablet (4 mg total) on top of tongue every 8 (eight) hours as needed for nausea . 01/25/23 02/01/23 Ani Gonzales CNP pregabalin (LYRICA) 75 MG capsule Take 1 (one) capsule (75 mg total) by mouth 2 (two) times a day .Manuel Cardona MD QUEtiapine (SEROQUEL) 400 MG tablet Take 2 (two) tablets (800 mg total) by mouth nightly . 05/12/20ProManuel stanley MD tiZANidine (ZANAFLEX) 2 MG tablet 05/09/20 Manuel Cardona MD tiZANidine (ZANAFLEX) 4 MG capsule Take 1 (one) capsule (4 mg total) by mouth 3 (three) times a dayas needed for muscle spasms USES FOR BACK [...] normal Alignment: normal Other FractureNegative BMP Order: [id number] Status: Final result Visible to patient: No [...] mellitus with other specified complication, unspecified whether snf insulin use (HCC) We a long discussion with her today about the fact that she is mainly chair bound This is putting constant contracture upon her hamstrings and she is likely getting muscle spasms asa result Recommended good glucose control to help with her neuropathy Also recommend conditioning to help with her leg and muscle function With regards to her knee does not seem to be any pathology with regards to arthritis or internal derangement Follow-up as needed Orders Placed This Encounter lisinopriL (PRINIVIL,ZESTRIL) 40 MG tablet documented in this [id number] NoteEXAMINATION: XA L-SPINE MYELOGRAM LP 10/07/2022 03:42 AM [...] region was prepped in the usual aseptic manner.Generous quantities of one percent lidocaine was used for local anesthesia. The L2-3 space was thenaccessed with a 20G spinal needle. Injection of [...] IMPRESSION: Technically successful uncomplicated fluoroscopically-guided myelogram. Dr. Birdger Barnes was present for the critical portions of the procedure.[facility] [id number] Hospital Discharge instructions* Discharge Instructions* Nikko Kendrick DO - 10/07/2022 7:16 AM [...] blood pressure today. High blood pressure can haveserious detrimental effects on your body. It is very important for you to see your Primary Care Physician (or call [phone] if you do not have a PCP) for follow up in the next 5-7 days. TRANSPORTATION TO [facility] FOR [facility]POINTMENT: PLEASE CALL [phone]. Extremity Injury Instructions: Return to the ED if you develop increased pain in your injured limb,loss of sensation, or change in color of the limb. Back Injury Instructions: Return to the ED if you have weakness or numbness in your arms or legs, you are unable to control your bowels or bladder, or you are unable to walk or if you have worsening pain in your back. Procedures done during this visit: CT Myelogram * Attachments The following attachments cannot be sent through Care Everywhere. * Urinary Incontinence Discharge Instructions (Stateless) * Diabetic Neuropathy (Stateless) documented in this [id number] NotePOST-PROCEDURE NOTE Procedure: Myelogram Pre-operative Diagnosis: concern for [...] portion of the procedure. Sonia Beach [facility] NotePre-Procedure Note HISTORY: Procedure: Myelogram Indication: cauda equina [...] Directives (Living will, health care power of superintendent recreation): none Patient Recent Code Status: No Order Code Status For This Procedure: Full Code Sonia Beach MD [facility]05-15-2023 Evaluation + Plan noteExtracted from: Title:ED NoteAuthor:Charil DUMONT JohnDate:10/06/22 Lower extremity weakness (R2 9.898: Other symptoms [...] Spect Rest/Stress 1 Day 12/16/21 [facility]04-24-2023 Hospital Discharge instructions Patient Education [...] cut, a sore, or an invasive medical review coordinator, it can cause a serious infection. What are the causes? This condition is caused by staph bacteria. Illness may develop after exposure to the bacteria through: Nvia-vt-kmix contact with someone who is infected with MRSA. Touching surfaces that have the bacteria on them. Having a procedure or using equipment that allows MRSA to enter the body. Having MRSA that lives on your skin and then enters your body through: ?A cut or scratch. ?A surgery or procedure. ?The use of a medical review coordinator. Contact with the bacteria may occur: During a stay in a hospital, rehabilitation facility, senior living, or other health care facility (health care associated MRSA). In daily activities where there is close contact with others, such as sports, child psychometrist centers, or at home (community-associated MRSA). What [...] system (immune system). Play sports that involve zbfr-vj-zveh contact. Live in a crowded place, like a dormitory or [employer] barr[employer]. Share towels, razors, or sports equipment [...] Follow these instructions at home: Medicines Take wugx-cfv-wtikmuo and prescription medicines only as told by [...] are not available, use an alcohol-based hand bench machine operator. Avoid close contact with those around [...] provider. Document Revised: 07/28/2019 Document Reviewed: 07/29/2019 [employer] Patient Education 2022 WORKING OUT WORKS. 09/15/2022 12:14:10 Cellulitis, Adult Cellulitis, Adult Cellulitis [...] Follow these instructions at home: Medicines Take qqsn-cdg-jqnpacg and prescription medicines only as told by [...] such as antibiotic medicines or antihistamines. Take eyhd-yjw-okarnuf and prescription medicines only as told by [...] provider. Document Revised: 02/20/2022 Document Reviewed: 02/20/2022 [employer] Patient Education 2022 WORKING OUT WORKS. Follow Up Care 09/12/2022 13:40:51 With:LAURENT FRANCO Address: [address] [place] [address]- Business (1) When: Unknown Comments:Appointment line is out of service. Please contact your PCP for an appointment. Thank you! With:Soto Box Address: [facility] [address] [facility] [place] [address]- 0 Business (1) When:3 to 5 days Comments:Call for followup appointment [facility]04-24-2023 Evaluation + Plan noteExtracted from: Title:Discharge NoteAuthor:Bry HICKEYte:09/15/22 Discharge To, Anticipated II - Home with [...] Oral, Daily ergocalciferol 50,000 intl units Cap, 88022 International_Unit= 1 cap(s), Oral, Thursday hydrOXYzine pamoate [...] Soto Box Within 3 to 5 days [facility] [address] [place] [address]- 0 Business (1) Additional Instructions: LAURENT FRANCO In 0 days [address] [place] [address]- Business (1) Additional Instructions: MRSA Infection, Diagnosis, Adult Cellulitis, Adult Extracted from:Title:APSO NoteAuthor:AMELIE GUEVARANP, CharleneDate:09/14/22 PLAN 1. Cellulitis (L03.90: Cellulitis, unspecified) Patiently recently admitted to [facility] and underwent an incision and drainage of a nailperformed by Dr. Swapnil Castillo however the nail [...] shoe follow-up next week Her cultures at [facility] was positive for MRSA Blood culture [...] artery disease) (I25.10: Atherosclerotic heart disease of [place] coronary artery without angina pectoris) history of VT with AICD placed per Dr Noble in [place]. Statin, aspirin, BB 4. HTN (hypertension) (I10: [...] exercise, weight loss and lifestyle modifications. Extracted from:Title:SOAP Note: Simple *Author:Soto Box DPM DDate:09/14/22 Impression and Plan Based on the CT scan findings and improvement clinically patient does not require surgical intervention at this time. Recommended continual IV antibiotics until discharge. She will follow-up with me as an outpatient once discharged. Today I applied a dry sterile dressing with Xeroform to the ulceration site recommended dispensing of surgical shoe follow-up next week. Extracted from:Title:APSO NoteAuthor:AMELIE MCKAYKRYSTLEYarelyJessicate:09/13/22 PLAN 1. Cellulitis (L03.90: Cellulitis, unspecified) Patiently recently admitted to [facility] and underwent an incision and drainage of a nailperformed by Dr. Swapnil Castillo however the nail continues to drain had abscess at the base of the digit --assess for ? osteomyelitis Unable to undergo MRI due to pacemaker. Cannot do bone scan on weekend CT left lower extremity w/o contrast pending. Continue Cubicin IV Consult ID pending. Consult podiatry pending Her cultures at [facility] was positive for MRSA Blood culture [...] artery disease) (I25.10: Atherosclerotic heart disease of [place] coronary artery without angina pectoris) history of VT with AICD placed per Dr Noble in [place]. Statin, aspirin, BB 4. HTN (hypertension) (I10: [...] mL, Soln-IV, IV, Once, Stop date 09/13/22 10:00:00EDT, Routine, Start date 09/13/22 10:00:00 EDT, mL/hr, [...] w/o Contrast Left eGFR NPO Diet Extracted from:Title:Podiatric surgeryAuthor:Soto Box DPM DDate:09/13/22 Impression and Plan Antibiotics are being managed [...] patient possible amputation of the left great toeshe understood all possible risk and complications including pain swelling numbness to infection need for additional surgery loss of limb nonhealing wound patient fully understood the possible risk and complications and is consented for the above-stated procedure. Extracted from:Title:Admission H & PAuthor:Evelyn STEVENS, DiamonddDate:09/12/22 Cellulitis -Will r/o osteo w/MRI -Antibiotics -ID [...] Push, TID PRN Nausea/Vomiting, Routine, Start date 09/12/2313:52:00 EDT, 09/12/22 14:52:00 EDT Cardiac Monitoring Communication Order Physician to Nursing Communication Order Physician to Nursing Communication Order Physician to Nursing Consult to Infectious Disease Physician Consult to Paralegal Internship Continuous Pulse Oximetry Diabetic/Calorie Control Diet Elevate Head of Bed Elevate Head of Bed Flutter Valve Hypoglycemia Protocol Responsive Patient Hypoglycemia Protocol Unresponsive Patient Incentive Spirometry MRI Foot w/o Contrast Left NPO Diet Place in Status Resuscitation Status - Full Routine Capillary Glucose POC Vital Signs Weight Extracted from:Title:ED NoteAuthor:Preston Lugo DODate:09/12/22 Osteomyelitis (M86.9: Osteom yelitis, unspecified) Orders: daptomycin [...] Spect Rest/Stress 1 Day 12/16/21 [facility]03-31-2023 Discharge summary Author Jeana Martini [facility] August 22, 2022 1:35pmNote Date/TimeMarch 2022 1:30[place] [address] Discharge Summary Signed Patient: Addie Jean Baptiste MR#: [id number] : 1975 Acct:[id number] Age/Sex: 47 / F Adm Date: 3 Loc: Room: [address] [place] [address]: Jeana Martini MD Copies to: Laurent Franco POWER WASHERKandi Martini MD~ Providers Date of Discharge: 08/22/22 [...] on intravenous antibiotic Patient was seen by translator interpreter who recommended and performed bedside incision and drainage to abscess. Patient is cleared by podiatry and infectious disease to be discharged home on oral Augmentin afterreceiving few days of intravenous Unasyn. I ordered [...] aspirin and statin given her diabetes, hypertension andPVD. Patient was found to have vitamin D [...] however these will need to be titrated upand down in the outpatient setting to achieve [...] BUN 20, Creatinine 1.22 H, Est GFR (CKD-EPI) 55.771, Glucose 141 H, Calcium8.1 L, Phosphorus 3.8, Magnesium 1.6 L 08/21/22 [...] place, time and person, morbidly obese HEENT: [place] conjunctiva and NL buccal mucosa Neck: Supple, [...] ask your primary care provider to obtain [facility] records entirely to follow up on all of the abnormal physical, laboratory, and imaging findings thatI have not addressed. Please follow-up with Dr. Romero to evaluate your circulation Please return back to the emergency room or seek medical attention if your symptoms worsen or return. Discharging you from [facility] does not mean that your medical care [...] to 2 weeks. Please call for appointment.) [facility] [Physician] - 08/25/22 10:15 am (Follow-up with your Primary Care Provider, call office to reschedule if needed. ) Documented By: Jeana Martini MD 08/22/22 1325 Signed By: <Electronically signed by Jeana Martini MD> 08/22/22 1335 [facility] Work Phone: [phone] 475-359403-31-2023 Hospital Discharge instructionsAmbulatory Orders* Initiate Home Health Time Frame: 08/22/22, Location: Determined By Patient Additional Instructions I may not have addressed or treated all of your medical illnesses or the abnormal blood work or imaging studies during this hospitalization. Please ask your primary care provider to obtain [facility] records entirely to follow up on all of the abnormal physical, laboratory, and imaging findings that I have not addressed. Please follow-up with Dr. Romero to evaluate your circulation Please return back to the emergency room or seek medical attention if your symptoms worsen or return. Discharging you from [facility] does not mean that your medical care [...] Assist with medication management and [facility] Work Phone: 1(350) 782-250203-31-2023 Progress note Author Shameka Romero [facility] August 22, 2022 9:56amNote Date/TimeMarch 2022 9:56amDaniel [place] [id number] Vascular Surgery Progress Note Signed Patient: Addie Jean Baptiste MR#: [id number] : 1975 Acct:[id number] Age/Sex: 47 / F Adm Date: 3 Loc: Room: [address] [place] [address] Type: ADM IN Attending Dr: Jeana Martini [...] foot. We did bring the patient down [facility] special suite and placed her [facility] angiography table. She is extremely anxious and [...] signed by Shameka Romero MD> 08/22/22 0956 [facility] Work Phone: 1(796) 809-773903-31-2023 Progress note Author Jeana Martini [facility] August 22, 2022 9:54amNote Date/TimeMarch 2022 9:55[place] [address] Hospitalist Progress Note Signed Patient: Addie Jean Baptiste MR#: [id number] : 1975 Acct:[id number] Age/Sex: 47 / F Adm Date: 3 Loc: Room: [address] [place] [address] Type: ADM IN Attending Dr: Jeana Martini [...] place, time and person, morbidly obese HEENT: [place] conjunctiva and NL buccal mucosa Neck: Supple, [...] signed by Jeana Martini MD> 08/22/22 0954 [facility] Work Phone: 1([phone]) 306-221803-30-2023 Consult note Author Shameka Romero [facility] August 21, 2022 4:02pmNote Date/TimeMarch 2022 4:00[place] [address] Vascular Surgery Consult Note Signed Patient: Addie Jean Baptiste MR#: [id number] : 1975 Acct:[id number] Age/Sex: 47 / F Adm Date: 3 Loc: Room: [address] [place] [address] Type: ADM IN Attending Dr: Jeana Martini MD Copies to: MD Jeana Dennis MD~ HPI Consult HPI Reason for consult: Left great toe ulcer History of present illness: Ms. Jean Baptiste is a 47 year old female with a left great toe ulcer. Vascular surgerywas asked to see herwith regards to this problem. She also has diminished blood flow in her left foot. Patient states this been present for over a week or 2. This patient does have longstanding diabetes she also has a Mediport in for IV access and she has a pacemaker and defibrillator. cc:: CC: Jeana Martini MD Data of Consult Consult date: 08/21/2022 Requesting Physician: [facility]ini [facility] Vaccinated for [facility]-19?: Yes Medical History Anxiety [...] % (Auto) 69.4 Lymph % (Auto) 20.6 [place] % (Auto) 7.4 Eos % (Auto) 1.8 Baso % (Auto) 0.8 Nucleat RBC Rel Count 0.0 Neut # (Auto) 5.7 Lymph # (Auto) 1.7 [place] # (Auto) 0.6 Eos # (Auto) 0.2 [...] MPV Neut % (Auto) Lymph % (Auto) [place] % (Auto) Eos % (Auto) Baso % (Auto) Nucleat RBC Rel Count Neut # (Auto) Lymph # (Auto) [place] # (Auto) Eos # (Auto) Baso # [...] based on her BMI. Unfortunately I did noti ce that her creatinine jumped yesterday. We may [...] signed by Shameka Romero MD> 08/21/22 1602 [facility] Work Phone: 1([phone]) 720-270803-30-2023 Progress note Author Lawrence Kim [facility] August 21, 2022 11:22amNote Date/TimeMarch 2022 11:22[place] [id number] Infect. Disease Progress Note Signed Patient: Addie Jean aBptiste MR#: [id number] : 1975 Acct:[id number] Age/Sex: 47 / F Adm Date: 3 Loc: 3T Room: [address] [place] [address] Type: ADM IN Attending Dr: Jeana Martini MD Copies to: ~ Date of Service: 08/21/2022 Subjective Interval history: Patient denies any new complaints. Incision and drainage performed at bedside yesterday. No culturesent. Remains on Unasyn Exam Physical Exam Vital [...] Mg/0.4 Ml Syringe) 40 mg SUBCUT DAILY@1000 [facility] Stop: 08/20/23 09:59 Last Admin: 08/21/22 09:01 [...] Units/3 Ml Insuln.Pen) 0 units SUBCUT TID.WM.[facility]; Protocol Stop: 08/20/23 11:59 Last Admin: 08/21/22 09:03 Dose: Not Given Levetiracetam (Levetiracetam 250 Mg Tablet) 750 mg PO BID [facility] Stop: 08/20/23 08:59 Last Admin: 08/21/22 08:59 Dose: 750 mg Levothyroxine Sodium (Levothyroxine 75 Mcg Tablet) 75 mcg PO DAILY@0630 [facility] Stop: 08/20/23 06:29 Last Admin: 08/21/22 06:09 Dose: 75 mcg Lisinopril (Lisinopril 40 Mg Tablet) 40 mg PO DAILY [facility] Stop: 08/20/23 08:59 Last Admin: 08/21/22 09:01 Dose: 40 mg Metformin HCl (Metformin 500 Mg Tablet) 1,000 mg PO BID.WITH.MEALS [facility] Stop: 08/20/23 07:59 Last Admin: 08/21/22 09:00 Dose: 1,000 mg Pantoprazole Sodium (Pantoprazole 40 Mg Tablet.Dr) 40 mg PO DAILY [facility] Stop: 08/21/23 08:59 Last Admin: 08/21/22 09:01 Dose: 40 mg Pregabalin (Pregabalin 150 Mg Capsule) 150 mg PO [facility] Stop: 02/16/23 03:44 Last Admin: 08/20/22 21:12 Dose: 150 mg Quetiapine Fumarate (Quetiapine Fumarate 200 Mg Tablet) 800 mg PO [facility] Stop: 08/20/23 03:59 Last Admin: 08/20/22 21:12 Dose: 800 mg Saccharomyces Boulardii (Saccharomyces Boulardii 250 Mg Capsule) 250 mg PO BID.WITH.MEALS [facility] Stop: 08/20/23 07:59 Last Admin: 08/21/22 08:59 [...] signed by MD Lawrence Kim> 08/21/22 1122 [facility] Work Phone: [phone]) 889-113403-30-2023 Progress note Author Jeana Martini [facility] August 21, 2022 10:10amNote Date/TimeMarch 2022 10:10[place] [address] Hospitalist Progress Note Signed Patient: Addie Jean Baptiste MR#: [id number] : 1975 Acct:[id number] Age/Sex: 47 / F Adm Date: 3 Loc: 3T Room: [address] [place] [address] Type: ADM IN Attending Dr: Jeana Martini [...] place, time and person, morbidly obese HEENT: [place] conjunctiva and NL buccal mucosa Neck: Supple, [...] signed by Jeana Martini MD> 08/21/22 1010 [facility] Work Phone: [phone]) [phone] Consult note Author Swapnil Castillo [facility] August 20, 2022 1:14pmNote Date/TimeMarch 2022 1:13[place] [address] Podiatry Consult Note Signed Patient: Addie Jean Baptiste MR#: [id number] : 1975 Acct:[id number] Age/Sex: 47 / F Adm Date: 3 Loc: Room: [address] [place] [address] Type: ADM IN Attending Dr: Jeana Martini MD Copies to: LUPE Muñiz MD~ HPI Data of Consult Consult Date: 07/22/22 Requesting Physician: Jeana Martini MD Primary Care Provider: LOLI Quintero Consult Narrative History of present illness: Ms. Jean Baptiste is a 47 year old female seen today per request of hospitalist for leftgreat toe infectionas well and cellulitis to left foot. Patient [...] toe area and has been on oral antibioticsin the past with ER visits in the [...] solution (Admelog U-100 Insulin lispro) See Rx Instructions.Route .COMPLEX 09/07/18 [History Confirmed 09/12/21] levetiracetam 500 [...] in possibly having surgery again. No further follow-upat this time please contact podiatry if any [...] <Electronically signed by LUPE Castillo> 08/20/22 1314 [facility] Work Phone: 1([phone]) 166-755003-29-2023 Consult note Author Lawrence Kim [facility] August 20, 2022 10:27amNote Date/TimeMarch 2022 10:26[place] [address] Infect. Disease Consult Note Signed Patient: Addie Jean Baptiste MR#: [id number] : 1975 Acct:[id number] Age/Sex: 47 / F Adm Date: 3 Loc: Room: [address] [place] [address] Type: ADM INOo Attending Dr: Jeana Martini [...] me she was hospitalized in July at [facility] for 4 days for this. She apparently [...] negative unless noted below or in HPI [facility] Attestation Statement: The following information was validated [...] 5 Mg Tablet) 5 mg PO DAILY [facility] Stop: 08/20/23 09:39 Clonidine HCl (Clonidine 0.1 [...] % (Auto) 64.7 Lymph % (Auto) 27.3 [place] % (Auto) 6.0 Eos % (Auto) 1.3 Baso % (Auto) 0.7 Nucleat RBC Rel Count 0.0 Neut # (Auto) 5.5 Lymph # (Auto) 2.3 [place] # (Auto) 0.5 Eos # (Auto) 0.1 [...] Color Urine Appearance Urine pH Ur Specific [place] Urine Protein Urine Glucose (UA) Urine Ketones [...] MPV Neut % (Auto) Lymph % (Auto) [place] % (Auto) Eos % (Auto) Baso % (Auto) Nucleat RBC Rel Count Neut # (Auto) Lymph # (Auto) [place] # (Auto) Eos # (Auto) Baso # [...] Appearance Clear Urine pH 6.5 Ur Specific [place] 1.017 Urine Protein 100 H Urine Glucose [...] % (Auto) 68.9 Lymph % (Auto) 22.6 [place] % (Auto) 6.9 Eos % (Auto) 1.1 Baso % (Auto) 0.5 Nucleat RBC Rel Count 0.2 Neut # (Auto) 6.2 Lymph # (Auto) 2.0 [place] # (Auto) 0.6 Eos # (Auto) 0.1 [...] Color Urine Appearance Urine pH Ur Specific [place] Urine Protein Urine Glucose (UA) Urine Ketones Urine Occult Blood Urine Nitrite Urine Bilirubin Urine Urobilinogen Ur Leukocyte Esterase Urine RBC Urine WBC Ur Squamous Epith Cells Urine Bacteria Hyaline Casts Urine Opiates Screen Negative Ur Barbiturates Screen Negative Ur Phencyclidine Scrn Negative Ur Amphetamines Screen Negative U Benzodiazepines Scrn Negative Urine Cocaine Screen Negative U Marijuana (THC) Screen Negative 0308/20/22 08/20/22 06:47 06:47 06:48 Corrected WBC Uncorrected WBC Count RBC Hgb Hct MCV MCH MCHC RDW Plt Count MPV Neut % (Auto) Lymph % (Auto) [place] % (Auto) Eos % (Auto) Baso % (Auto) Nucleat RBC Rel Count Neut # (Auto) Lymph # (Auto) [place] # (Auto) Eos # (Auto) Baso # [...] Color Urine Appearance Urine pH Ur Specific [place] Urine Protein Urine Glucose (UA) Urine Ketones [...] MPV Neut % (Auto) Lymph % (Auto) [place] % (Auto) Eos % (Auto) Baso % (Auto) Nucleat RBC Rel Count Neut # (Auto) Lymph # (Auto) [place] # (Auto) Eos # (Auto) Baso # [...] Color Urine Appearance Urine pH Ur Specific [place] Urine Protein Urine Glucose (UA) Urine Ketones [...] On IV Unasyn. Podiatry was consulted. Probably wo uldbenefit from appropriate wound care, better compliance on management of her sugars and short course of oral antibiotic. Documented By: Lawrence Kim MD 08/20/22 1020 Signed By: <Electronically signed by MD Lawrence Kim> 08/20/22 [facility] Work Phone: 1(436) [phone] Progress note Author Jeana Martini [facility] August 20, 2022 9:48amNote Date/TimeMarch 2022 9:48[place] [address] Hospitalist Progress Note Signed Patient: Addie Jean Baptiste MR#: [id number] : 1975 Acct:[id number] Age/Sex: 47 / F Adm Date: 3 Loc: Room: [address] [place] [address] Type: ADM INOo Attending Dr: Jeana Martini [...] place, time and person, morbidly obese HEENT: [place] conjunctiva and NL buccal mucosa Neck: Supple, [...] or edema. Erythema, induration and tenderness involving theleft great toe. Stage II ulceration involving the [...] <Electronically signed by Jeana Martini MD> 08/20/22947 [facility] Work Phone: 1(851) 213-984803-29-2023 History and physical note Author Ezekiel Mathew [facility] March 29th, 2023 3:56amNote Date/TimeMarch 2022 3:56[place] [address] Hospitalist H&P Signed Patient: Addie Jean Baptiste MR#: [id number] : 1975 Acct:[id number] Age/Sex: 47 / F Adm Date: 3 Loc: Room: [address] [place] [address] Type: ADM INOo Attending Dr: Ezekiel Mathew [...] tramadol, Motrin, and Darvocet they did offer herTylenol. Her potassium was a little bit low at 3.3 in the ER did replace that her magnesium was lowat 1.2 inthe ER did replace that. Markers [...] up into the lower part of her ankleand calf. Per her description there is not [...] solution (Admelog U-100 Insulin lispro) See Rx Instructions.Route .COMPLEX 09/07/18 [History Confirmed 09/12/21] levetiracetam 500 [...] % (Auto) 27.3 % (.) 08/20/22 00:19 [place] % (Auto) 6.0 % (.) 08/20/22 00:19 Eos % (Auto) 1.3 % (.) 08/20/22 00:19 Baso % (Auto) 0.7 % (.) 08/20/22 00:19 Nucleat RBC Rel Count 0.0 /100 WBC (0-0.5) 08/20/22 00:19 Neut # (Auto) 5.5 x10E3/uL (1.8-7.7) 08/20/22 00:19 Lymph # (Auto) 2.3 x10E3/uL (1.00-4.8) 08/20/22 00:19 [place] # (Auto) 0.5 x10E3/uL (0.0-0.8) 08/20/22 00:19 [...] pH 6.5 (5.0-9.0) 08/20/22 01:07 Ur Specific [place] 1.017 (1.001-1.030) 08/20/22 01:07 Urine Protein 100 [...] She states that she does have a translator interpreter with Dr. Box. Since his partner Dr. Castillo comes to the hospital I will consult him. I think that the Unasyn startedby the emergency room is reasonable. She is [...] signed by Ezekiel Mathew DO> 08/20/22 0356 [facility] Work Phone: 1(118) 804-345003-28-2023 Hospital Discharge instructions Patient Education 08/19/2022 20:32:56 [...] and water are not available, use hand bench machine operator. ?Change your dressing as told by [...] antibiotic even if your condition improves. Take rpvx-fxl-ausjtyp and prescription medicines only as told by [...] 02/17/2009 Document Revised: 08/29/2019 Document Reviewed: 11/25/2016 [employer] Patient Education 2020 [employer] 08/19/2022 20:32:56 Type 2 Diabetes Mellitus, Self Care, Adult, Uboz-tv-Wfka Type 2 Diabetes Mellitus, Self Care, Adult [...] oil, and canola oil. Meet with a prepared foods supervisor (dietitian). He or she can help you [...] for cuts, bruises, redness, blisters, or sores. [place] your teeth and gums two times a day. Floss one or more times a day. Go to the dentist one or more times every 6 months. Stay at a healthy weight. General instructions Take drbl-iqe-gqnldhw and prescription medicines only as told by your doctor. Share your diabetes care plan with: ?Your work or school. ?People you live with. Carry a card or wear jewelry that says you have diabetes. Keep all follow-up visits as told by your doctor. This is important. Questions to ask your doctor Do I need to meet with a primary special educator? Where can I find a support group for people with diabetes? Where to find more information To learn more about diabetes, visit: [place] Diabetes Association: www.diabetes.org [place] Association of Diabetes Educators: www.diabeteseducator.org Summary When [...] 09/01/2016 Document Revised: 11/01/2018 Document Reviewed: 06/13/2016 [employer] Patient Education 2020 [employer]. Follow Up Care 08/19/2022 17:03:41 With:[facility] Address: [place] [address]- [employer] (1) When:08/22/2022 20:16:55 [facility]03-28-2023 Evaluation + Plan note Diagnostic Tests Pending * Blood Culture Charcoal 08/19/22 * Blood Culture Charcoal 08/19/22 * UA With Cult Reflex 08/19/22 * Wound Culture 08/19/22 Future Scheduled Tests Laboratory* Fecal WBC Lactoferrin 10/30/21 * Enteric Panel by PCR 10/30/21 Radiology* NM Myocardial Spect Rest/Stress 1 Day 12/16/21 * Echo Transthoracic Complete 09/03/21 [facility]01-09-2023 Hospital Discharge instructions Patient Education 06/02/2022 20:35:11 Seizure, Adult, Iehk-gx-Qalq Seizure, Adult A seizure is a sudden [...] Follow these instructions at home: Medicines Take xpmj-sus-lvekynt and prescription medicines only as told by [...] [place] ask your local DMV (department of [employer]) when you can drive. Get plenty of [...] 10/27/2008 Document Revised: 07/29/2019 Document Reviewed: 07/29/2019 [employer] Patient Education 2020 [employer]. 06/02/2022 20:35:11 Abdominal Pain, Adult, Qgey-uy-Igez Abdominal Pain, Adult Many things can cause belly (abdominal) pain. Most times, belly pain is not dangerous. Many cases of belly pain can be watched and treated at home. Sometimes, though, belly pain is serious. Your doctor will try to find the cause of your belly pain. Follow these instructions at home: Medicines Take bpgd-ndm-fxmdgck and prescription medicines only as told by [...] your belly pain for any changes. Take bcyy-mbw-pietqlh and prescription medicines only as told by [...] 10/27/2008 Document Revised: 09/19/2019 Document Reviewed: 09/19/2019 [employer] Patient Education 2020 [employer]. Follow Up Care 06/02/2022 15:49:02 With:Pool Heath Address: [address] [place] [id number] Business (1) When:06/05/2022 20:05:40 Comments:Take your medications as prescribed. Please follow-up with your primary care doctor in addition to your neurologist for further evaluation management. Please return to ED for any new or worsening symptoms. [facility]01-09-2023 Evaluation + Plan noteExtracted from: Title:ED NoteAuthor:Bridgett Gillespie M.D. HDate:06/02/22 1. Recurrent seizures (G40.9 09: Epilepsy, unspecified, not intractable, without status epilepticus) 2. Abdominal pain (R10.9: Unspecified abdominal pain) 3. Hyperglycemia (R73.9: Hyperglycemia, unspecified) Orders: insulin lispro, 10 unit(s) = 0.1 mL, Injection-Insulin, SubCutaneous, Once, Stop date 06/02/22 17:35:00 EST, STAT, Start date 06/02/22 17:35:00 EST insulin lispro, 10 unit(s), Injection-Insulin, SubCutaneous, Once, Stop date 06/02/22 18:49:00 EST,STAT, Start date 06/02/22 18:49:00 EST, 06/02/22 18:49:00 [...] mL, Soln-IV, IV, Once, Stop date 06/02/22 16:20:00EST, STAT, Start date 06/02/22 16:20:00 EST, mL/hr, Infuse over 61, minute(s) Automated Diff Basic Metabolic Panel Beta-hydroxybutyrate Capillary Glucose POC Capillary Glucose POC CBC w/ Auto Diff CT Abdomen/Pelvis w/o Contrast eGFR Hepatic Function Panel Keppra Lvl Lipase Level PT & PTT UA With Cult Reflex Addendum by Chantel Blackburn DO on June 02, 2022 20:31:24 EST Patient's blood sugar decreased to 278. Was given Bentyl for right-sided abdominal pain. She had a negative CT imaging. Patient is discharged home she given a prescription for Robaxin. Follow-up withher primary care doctor in the next 2 to 3 days. She is to return to the ED for any new or worsening symptoms. Diagnostic Tests Pending * Angella Lvl 06/02/22 Future Scheduled Tests Laboratory* Fecal WBC Lactoferrin 10/30/21 * HgbA1c 07/29/21 * Enteric Panel by PCR 10/30/21 * Thyroid Stimulating Hormone 07/29/21 Radiology* NM Myocardial Spect Rest/Stress 1 Day 12/16/21 * Echo Transthoracic Complete 09/03/21 [facility]12-22-2022 Hospital Discharge instructions Patient Education 05/15/2022 16:59:08 Paronychia, Zswz-tt-Puzo Paronychia Paronychia is an infection of the [...] cannot use soap and water, use hand bench machine operator. ?Change your bandage as told by your doctor. If you had a fluid-filled bump and your doctor drained it, check the area every day for signs of infection. Check for: ?Redness, swelling, or pain. ?Fluid or blood. ?Warmth. ?Pus or a bad smell. Medicines Take rmpj-fhq-pxacnzz and prescription medicines only as told by [...] ?Wear gloves if your hands might touch freight car builder or chemicals. ?Avoid injuring your nails or [...] 04/29/2010 Document Revised: 05/28/2018 Document Reviewed: 05/24/2018 [employer] Patient Education 2020 [employer]. Follow Up Care 05/15/2022 16:12:54 With:[facility] Address: [address] [place] [phone] Business (1) When:Within 3 Day(s) [facility]12-22-2022 Evaluation + Plan noteExtracted from: Title:ED NoteAuthor:Heather Ortega PA-C NDate:05/15/22 1. Paronychia, finger (L03.0 19: Cellulitis of unspecified finger) Orders: sulfamethoxazole-trimethoprim, 1 tab(s), Oral, BID for 7 day(s), 14 tab(s), Refill(s) 0, [facility], 157, cm, 05/15/22 16:23:00 EST, [...] * Echo Transthoracic Complete 09/03/21 [facility]11-16-2022 Evaluation + Plan noteExtracted from: Title:Discharge NoteAuthor:Kinza STEVENS, Pepe SDate:04/09/22 Discharge To, Anticipated II - Home independently [...] QID, PRN ergocalciferol 50,000 intl units Cap, 82676 International_Unit= 1 cap(s), Oral, q7day Keppra 250 [...] SAMUEL Jaimes Within 2 to 4 weeks [address] [place] [address]- Additional Instructions: Radha Dias DO Within 2 to 4 days [address] [place] [address]- Additional Instructions: Diabetes Mellitus and Nutrition, Adult Diabetes Mellitus and Foot Care Diabetes Mellitus and Exercise Extracted from:Title:Discharge NoteAuthor:Kinza STEVENS, Pepe SDate:04/08/22 Discharge To, Anticipated II - Home independently [...] Oral, Daily ergocalciferol 50,000 intl units Cap, 60212 International_Unit= 1 cap(s), Oral, q7day insulin glargine [...] SAMUEL Jaimes Within 2 to 4 weeks [address] [place] [address]- Additional Instructions: Radha Dias DO Within 2 to 4 days [address] [place] [address]- Additional Instructions: Diabetes Mellitus and Nutrition, Adult Diabetes Mellitus and Foot Care Diabetes Mellitus and Exercise Addendum by Kinza STEVENS, Pepe Lozada on April 08, 2022 13:12:55 EST Add to physical exam. Patient does not lift right lower extremity against gravity. Patient does notput in any effort as well so not sure how much it is psychogenic. Strength normal in other extremities. Patient mention she is unable to feel anything in right lower extremity. However I have seen patient moving right lower extremity. Patient walks with FWW Addendum by Pepe Echols MD on April 08, 2022 14:09:08 EST For bronchitis patient needs frequent treatments of DuoNeb and nebulizer Extracted from:Title:APSO Note-neurologyAuthor:Elio ELDER, NikkyDate:04/08/22 Reason for consult: Concern for seizure ASSESSMENT: 1. Seizure disorder. 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 Multiple previous EEGs with epileptiform discharges including May 2019 and August 2018.She says her typical seizure as of lately is a brief staring spell followed by a headache. One of those happened in the emergency department. 2. Right lower extremity numbness/paresthesias and weakness, persistent the last several weeks. At time of symptom onset she was evaluated at [facility] and had a stroke work-up, results of which are unclear. CT head here does not show any obvious areas of subacute ischemia. Could also consider lumbar radiculopathy as a potential explanation given her known lumbar spondylosis. Nondermatomal sensory loss and nonmyotomal pattern of weakness. Very questionable effort. 3. Chronic diabetic polyneuropathy. PLAN: 1. Obtaining hospital records from [facility] to ensure they looked into [...] abnormal. 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 1. DKA (diabetic ketoacidosis) (E11.10: Type 2 [...] Patient's other noncompliance with medication regimen) Extracted from:Title:Consult Note- NeurologyAuthor:Faustina Ramirez RN ADate: 04/07/22 Reason for consult: Concern for seizure ASSESSMENT: 1. Seizure disorder. 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 Multiple previous EEGs with epileptiform discharges including May 2019 and August 2018.She says her typical seizure as of lately is a brief staring spell followed by a headache. One of those happened in the emergency department. 2. Right lower extremity numbness/paresthesias and weakness, persistent the last several weeks. At time of symptom onset she was evaluated at [facility] and had a stroke work-up, results of which are unclear. CT head here does not show any obvious areas of subacute ischemia. Could also consider lumbar radiculopathy as a potential explanation given her known lumbar spondylosis. Nondermatomal sensory loss and nonmyotomal pattern of weakness. 3. Chronic diabetic polyneuropathy. PLAN: 1. Obtaining hospital records from [facility] 2. Continue the Keppra at 750 mg [...] abnormal. 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 1. DKA (diabetic ketoacidosis) (E11.10: Type 2 [...] Patient's other noncompliance with medication regimen) Extracted from:Title:Admission H & PAuthor:Ashutosh MENARD DO:04/07/22 1. DKA (diabetic ketoacidosi s) (E11.10: Type 2 diabetes mellitus with ketoacidosis without coma) [place] to be mild versus nonketotic hyperosmolar state [...] check for worsening acidosis, check a beta hydroxybutyrate.If CO2 is declining, beta hydroxybutyrate is elevated, will initiate insulin drip until patient's in sulin pump can be brought in to assure that it is functional. For now have ordered sliding scale tolabs return. We will for now hydrate with IV fluids but note history of below. If CO2 is normalizedwith a normal beta hydroxybutyrate and with IV [...] rhonchi. We will continue Zithromax, albuterol and Atroventmed nebs. Add Mucinex 3. Acute encephalopathy (G93.40: Encephalopathy, unspecified) This was described as transient not oriented to some of her points orientation. Patient states she has no recall of the event. Potentially multifactorial including due to osmotic effects of significant hyperglycemia. Question atypical seizure. Patient is presently alert and oriented. CT of the headwas negative for any acute pathology. In light [...] deficits) Patient states she was hospitalized at [facility] with right leg weakness and numbness 3 weeks ago. Curiously she states she had been on aspirin previously and there was no change in her therapy. We will obtain records from [facility] in regards to her recent [...] usual 800 mg this evening if this doseis tolerated. Patient is strongly requesting also her medication this a.m. 7. Bipolar disorder (F31.9: Bipolar disorder, unspecified) See above regarding Seroquel. Continue Effexor. Patient states she declines and is no longer takingDepakote because she had GI side effects as suggested above 8. History of cardiac arrest (Z86.74: Personal history of sudden cardiac arrest) Patient has limited insight to the events that led to cardiac arrest but [facility] denies any recent discharge [...] obstructive sleep apnea. She placed a CPAP devicein storage and it was lost. She states curiously she had a more recent outpatient stress study withno evidence of sleep apnea but then suggest [...] q6hr PRN Nausea, Routine, Start date 04/07/22 5:41:00EST, 04/07/22 5:41:00 EST ondansetron, 4 mg = [...] Level myStation Chronic Obstructive Pulmonary Disease COPD (ADRIANE:[id number]) Notify Provider Vital Signs Notify Provider Vital [...] require greater than 2 midnight stay Extracted from:Title:ED NoteAuthor:Chantel Blackburn DO ADate:04/07/22 Acute bronchitis (J20.9: Acu te bronchitis, unspecified) Hyperglycemia (R73.9: Hyperglycemia, unspecified) Noncompliance with medication regimen (Z91.14: Patient's other noncompliance with medication regimen) Orders: albuterol-ipratropium, 6 mL, Soln-Inh, Inhalation, Once, Stop date 04/06/22 21:11:00 EST, STAT, Start date 04/06/22 21:11:00 EST azithromycin, 500 mg = 2 tab(s), Tab, Oral, Once, Stop date 04/06/22 22:55:00 EST, STAT, Start date04/06/22 22:55:00 EST, 04/06/22 22:55:00 EST brompheniramine/dextromethorphan/PSE, 5 mL, Syrup, Oral, Once, Stop date 04/06/22 22:56:00 EST, STAT, Start date 04/06/22 22:56:00 EST insulin regular, 10 unit(s), Injection-Insulin, SubCutaneous, Once, Stop date 04/07/22 0:06:00 EST,STAT, Start date 04/07/22 0:06:00 EST, 04/07/22 0:06:00 [...] Push, Once, Stop date 04/06/22 21:11:00 EST, STAT,Start date 04/06/22 21:11:00 EST, 04/06/22 21:11:00 EST Sodium Chloride 0.9% intravenous solution, 1,000 mL, Soln-IV, IV, Once, Stop date 04/06/22 21:11:00EST, STAT, Start date 04/06/22 21:11:00 EST, mL/hr, Infuse over 61, minute(s) Sodium Chloride 0.9% intravenous solution 1,000 mL, 1,000 mL, IV, 983.61 mL/hr, for 30 day(s), Stopdate 05/07/22 0:31:00 EST, STAT, Start date 04/07/22 [...] * Echo Transthoracic Complete 09/03/21 [facility]11-14-2022 Hospital Discharge instructions Patient Education [...] you work with a diet and nutritional yeast supervisor (dietitian) tomake a meal plan that is [...] care provider. Work with a counselor or primary special educator to identify strategies to manage stress and any emotional and social challenges. Questions to ask a health care provider Do I need to meet with a primary special educator? Do I need to meet with a dietitian? What number can I call if I have questions? When are the best times to check my blood glucose? Where to find more information: Citizen [place] Diabetes Association: diabetes.org Academy of Nutrition and Dietetics: www.eatright.org National [place] of Diabetes and Digestive and Kidney Diseases (NIH): www.niddk.nih.gov Summary A healthy meal plan will help you control your blood glucose and maintain a healthy lifestyle. Working with a diet and nutritional yeast supervisor (dietitian) can help you make a meal [...] 02/05/2006 Document Revised: 04/23/2018 Document Reviewed: 06/15/2017 [employer] Patient Education 2020 WORKING OUT WORKS. 04/07/2022 07:24:34 Diabetes Mellitus and Foot Care Diabetes Mellitus and Foot Care Foot care is an important part of your health, especially when you have diabetes. Diabetes may cause you to have problems because of poor blood flow (circulation) to your feet and legs, which can cause your skin to: Become thinner and platen drier operator. Break more easily. Heal more [...] 05/08/2001 Document Revised: 06/23/2018 Document Reviewed: 06/12/2017 [employer] Patient Education 2020 WORKING OUT WORKS. 04/07/2022 07:24:32 Diabetes Mellitus and Exercise Diabetes [...] activity plan? Your health care provider or family educator can help you make a plan for [...] and stress. Your health care provider or family educator can help you make a plan for [...] 07/31/2004 Document Revised: 12/03/2017 Document Reviewed: 10/20/2016 [employer] Patient Education 2020 WORK[employer] OUT [employer]KS. Follow Up Care 04/06/2022 20:30:13 With:Polo Bo MD, NEU Address: [address] [facility] [address] [place] [id number] [facility] (1) When:05/01/2022 12:40:00 With:Radha Dias DO Address: [address] , [facility] [address] [place] [address] When:04/23/2022 12:45:00 [facility]10-06-2022 Hospital Discharge instructions Patient Education 02/27/2022 17:35:47 Nonspecific Chest Pain, Adult, Wulx-pi-Hcbr Nonspecific Chest Pain Chest pain can be [...] Follow these instructions at home: Medicines Take ivuu-hno-oyerxnf and prescription medicines only as told by [...] a heart-healthy diet. A diet and nutritional yeast supervisor (dietitian) can help you to learn healthy [...] 10/27/2008 Document Revised: 11/11/2018 Document Reviewed: 11/11/2018 [employer] Patient Education 2020 WORKING OUT WORKS. 02/27/2022 17:35:47 Seizure, Adult, Mufw-bq-Vbes Seizure, Adult A seizure is a sudden [...] Follow these instructions at home: Medicines Take bodo-zfd-gcbadwc and prescription medicines only as told by [...] [place]., ask your local DMV (department of [employer]) when you can drive. Get plenty of [...] 10/27/2008 Document Revised: 07/29/2019 Document Reviewed: 07/29/2019 [employer] Patient Education 2020 [employer] Follow Up Care 02/27/2022 11:56:29 With:[facility]ck with [facility] Address:Unknown When: Unknown With:Radha Dias Address: [address] , [facility] [address] [place] [address]- Business (1) When:Within 3 Day(s) [facility]10-06-2022 Evaluation + Plan noteExtracted from: Title:ED NoteAuthor:Lucia Castorena MDate:02/27/22 CBC/BMP: Hyperglycemia, mild hyponatremia EKG Troponin: negative for acute ischemia Keppra and Valproic acid levels pending CXR: lungs clear, port and pacemaker unchanged in position. 1. Breakthrough seizure (G40.919: Epilepsy, unspecified, intractable, without status epilepticus) 2. Atypical chest pain (R07.89: Other chest pain) Orders: levetiracetam, 250 mg = 1 tab(s), Oral, BID, # 60 tab(s), Refills(s) 0, Pharmacy: [facility], 157, cm, 02/27/22 12:02:00 EDT, Height/Length Dosing, 113.5, kg, 02/27/22 12:02:00 EDT, WeightDosing levetiracetam, 250 mg = 1 tab(s), Tab, [...] * Echo Transthoracic Complete 09/03/21 [facility]09-30-2022 Hospital Discharge instructions Patient Education [...] and water are not available, use hand bench machine operator. Keep the wound clean and dry. [...] falls off the skin. General instructions Take qodv-fdu-xobucls and prescription medicines only as told by [...] 05/11/2006 Document Revised: 07/09/2018 Document Reviewed: 05/31/2018 [employer] Patient Education 2020 [employer] Follow Up Care 02/21/2022 14:51:18 With:Radha Dias Address: [address], [facility] [address] [place] [address] [facility] (1) When:02/24/2022 15:15:47 Comments:Follow-up with your primary care provider in 3 to 5 days. If symptoms worsen, do not improve, or new symptoms arise please report back to emergency department for further evaluation. Sutures to be removed in 10 days. [facility]09-02-2022 Hospital Discharge instructions Patient Education [...] water added (diluted fruit juice). Eat bland, arty-ac-qheaej foods in small amounts as you are able. These foods include bananas, applesauce, rice, lean meats, toast, and crackers. Avoid fluids that contain a lot of sugar or caffeine, such as energy drinks, sports drinks, and soda. Avoid alcohol. Avoid spicy or fatty foods. General instructions Take khij-ixi-cevxwco and prescription medicines only as told by your health care provider. Drink enough fluid to keep your urine pale yellow. Wash your hands often using soap and water. If soap and water are not available, use hand bench machine operator. Make sure that all people in [...] eating and drinking to prevent dehydration. Take tdoq-jmj-ioxevde and prescription medicines only as told by [...] 05/11/2006 Document Revised: 09/02/2019 Document Reviewed: 10/19/2018 [employer] Patient Education 2020 WORKING OUT WORKS. 01/24/2022 14:32:12 Diarrhea, Adult Diarrhea, Adult Diarrhea [...] oral rehydration solution (ORS). This is an quie-vlc-yavmynr medicine that helps return your body to [...] drinks, sports drinks, and soda. Eat bland, hlws-ei-spccix foods in small amounts as you are able. These foods include bananas, applesauce, rice, lean meats, toast, and crackers. Avoid alcohol. Avoid spicy or fatty foods. Medicines Take eits-iju-dcgxhxg and prescription medicines only as told by your health care provider. If you were prescribed an antibiotic medicine, take it as told by your health care provider. Do notstop using the antibiotic even if you start to feel better. General instructions Wash your hands often using soap and water. If soap and water are not available, use a hand bench machine operator. Others in the household should wash [...] soap and water are not available, usehand bench machine operator. Contact a health care provider if [...] 05/01/2003 Document Revised: 09/27/2019 Document Reviewed: 10/15/2018 [employer] Patient Education 2020 WORKING OUT WORKS. 01/24/2022 14:32:12 Acute Pain, Adult Acute Pain, [...] Follow these instructions at home: Medicines Take iukp-apa-crudnoy and prescription medicines only as told by [...] pain is severe. ?Do not take other evhn-kzp-yvfjujc pain medicines in addition to prescription pain [...] grains, and fresh fruits and vegetables. ?Take kxhn-cni-jauwamw or prescription medicines. ?Limit foods that are [...] or you are no longer ill. Take csjt-fdx-oplyqft and prescription medicines only as told by [...] 05/25/2016 Document Revised: 09/26/2019 Document Reviewed: 09/26/2019 [employer] Patient Education 2020 [employer] Follow Up Care 01/24/2022 10:45:45 With:Radha Dias Address: [address], [facility] [address] [place] [address]- [facility] (1) When:01/27/2022 14:08:11 [facility]08-18-2022 Hospital Discharge instructions Patient Education [...] exercise. Managing pain, stiffness, and swelling Take tqtp-org-ahfgzdi and prescription medicines only as told by [...] 05/11/2006 Document Revised: 04/23/2018 Document Reviewed: 06/10/2017 [employer] Patient Education 2020 WORKING OUT WORKS. 01/09/2022 17:03:20 Chest Wall Pain Chest Wall [...] are safe for you. General instructions Take wbyn-fwm-yajucmc and prescription medicines only as told by [...] 05/11/2006 Document Revised: 11/11/2018 Document Reviewed: 11/11/2018 [employer] Patient Education 2020 WORKING OUT WORKS. Follow Up Care 01/09/2022 12:14:58 With:Kirk Abbott Address: [address] [place] [address]- [facility] (1) When:1 to 2 weeks Comments:Call for [...] scheduling to schedule a 2-day stress test. [employer] Ass[employer] evaluated you during your hospital stay and they cleared you for discharge. Please follow-up with scrub technician after stress test is complete. Please do not delay the stress test any further. Keep taking the medications as you are taking as we are not changing anything.[facility]. [facility] Evaluation + Plan noteExtracted from: Title:Consult NoteAuthor:Milena STEVENS, Kirk Long.Date:01/09/22 Atypical chest pain prior hi story of [...] (Z29.9: Encounter for prophylactic measures, unspecified) Extracted from:Title:Discharge NoteAuthor:Juan GONZALEZ MD PDate:01/09/22 Discharged to - Home with family care [...] Kirk Abbott Within 1 to [address] [place] [id number] [facility] (1) Additional Instructions: Call for followup appointment Call physician if symptoms worsen Breanna Gu Within 7 to 10 days Additional Instructions: Call for followup appointment Call physician if symptoms worsen Good afternoon Addie! You were admitted to our hospital due to chest pain. It was a pleasure takingcare of you during your hospital stay. Your pain is reproducible on physical exam which is consistent with musculoskeletal pain. You do have multiple risk factors and we are recommending a stress test. You have a stress test ordered in the system. Please call central scheduling to schedule a 2-day stress test. [employer] evaluated you during your hospital stay and they cleared you for discharge. Please follow-up with scrub technician after stress test is complete. Please do not delay the stress test any further. Keep taking the medications as you are taking as we are not changing anything. Dr. Juan Gonzalez Hospitalist at [facility] Musculoskeletal Pain Chest Wall Pain Extracted from:Title:Admission H & PAuthor:Juan GONZALEZ MD PDate:01/09/22 46-year-old female with past medical history of [...] made to ensure accuracy, however, inadvertently computerized edi architect mistakes may be present. Dr. Juan Gonzalez Hospitalist at [facility] Extracted from:Title:ED NoteAuthor:Jose Miguel Burciaga, Bridgett HDate:01/09/22 1. Chest pain (R07.9: Chest pain, unspecified) 2. Hypomagnesemia (E83.42: Hypomagnesemia) Orders: magnesium sulfate + Generic Diluent 100 mL, 4 gram = 100 mL, IV Piggyback, Once, Stop date 01/09/2213:58:00 EDT, STAT, Start date 01/09/22 13:58:00 EDT, [...] * Echo Transthoracic Complete 09/03/21 [facility]07-21-2022 Hospital Discharge instructions Patient Education [...] 06/18/2005 Document Revised: 04/23/2018 Document Reviewed: 08/06/2017 [employer] Patient Education 2020 WORK[employer]KS. 12/12/2021 17:14:19 BMI for Adults BMI for [...] height. This can be done either in Stateless (U.[place] or metric measurements. Note that charts are available to help you find your BMI quickly and easily without having to do these calculations yourself. To calculate your BMI in Stateless ([place] measurements, your health care provider will: [...] medical problems. BMI can be measured using Stateless measurements or metric measurements. To interpret your [...] 01/20/2005 Document Revised: 04/23/2018 Document Reviewed: 03/24/2018 [employer] Patient Education 2020 WORKING OUT WORKS. 12/12/2021 17:04:18 Lactose Intolerance, Adult Lactose Intolerance, [...] you eat milk products. Lactase tablets are ojvm-msk-uykvubg medicines that help to improve lactose digestion. [...] contain: ?Lactose. ?Milk solids. ?Casein. ?Whey. Take qyok-msy-lkhzhmx and prescription medicines (including lactase tablets) only as told by your health care provider. If you stop eating and drinking dairy products (eliminate dairy from your diet), make sure to get enough protein, calcium, and vitamin D from other foods. Work with your health care provider or a diet and nutritional yeast supervisor (dietitian) to make sure you get enough [...] 05/11/2006 Document Revised: 04/23/2018 Document Reviewed: 12/25/2017 [employer] Patient Education 2020 WORKING OUT WORKS. Follow Up Care 12/12/2021 12:11:17 With:Riccardo HENDERSON Breanna R Address: When: only if needed [facility] 07-17-2022 Hospital Discharge instructions Patient [...] hard liquor (44 mL). General instructions Take gbnw-buo-qesneny and prescription medicines only as told by your health care provider. Practice techniques for relaxation and managing anxiety at times you are not challenged by social anxiety. Return to social activities using techniques you have learned, as you feel ready to do so. Avoid caffeine and certain rsku-qng-mnifsiz cold medicines. These may make you feel worse. Ask yourpharmacists which medicines to avoid. Keep all follow-up visits as told by your health care provider. This is important. Where to find more information National [place] on Mental Illness (AVA): https://www.ava.org Social Anxiety [...] 04/09/2006 Document Revised: 10/12/2019 Document Reviewed: 10/12/2019 [employer] Patient Education 2020 [employer] 12/08/2021 14:29:40 Seizure, Adult Seizure, Adult A [...] having seen or heard something before (d valdez vu). Odd tastes or smells. Changes in [...] Follow these instructions at home: Medicines Take dwsl-yuo-uocqrdw and prescription medicines only as told by [...] check with your local DMV (department of [employer]) to find out aboutlocal driving laws. Each [...] medicines are used to treat seizures. Take eqba-ayd-pdnbhyo and prescription medicines only astold by your health care provider. This information is not intended to replace advice given to you by your health care provider. Make sure you discuss any questions you have with your health care provider. Document Released: 05/08/2001 Document Revised: 07/29/2019 Document Reviewed: 07/29/2019 [employer] Patient Education 2020 WORK[employer] WORKS. Follow Up Care 12/08/2021 09:53:20 With:Polo Bo Address: [address] [place] [address]- Business (1) When:12/11/2021 13:49:13 Comments:If you do not have a neurologist, follow-up with Dr. Bo. With:Breanna Gu Address: [address] [facility] [place] [phone] [employer] (1) When:12/11/2021 13:48:53 Comments:Follow-up with your primary care provider in 3 to 5 days. If symptoms worsen, do not improve, or new symptoms arise please report back to emergency department for further evaluation. Follow-up with your neurologist immediately. [facility]06-15-2022 Evaluation + Plan noteExtracted from: Title:Discharge NoteAuthor:Evelyn STEVENS, [facility]'s Hospitalate:11/06/21 Stable Discharge To, Anticipated II - Home [...] Herediaell In 0 days Additional Instructions: Extracted from:Title:Admission H & PAuthor:Evelyn STEVENS, [facility] HospitaldDate:11/04/21 UTI -Failed out patient treatment, will treat w/IV antibiotics. We had extensive conversation about theimportance of hygiene particularly after defecating, needing to [...] Full Routine Capillary Glucose POC Weight Extracted from:Title:ED NoteAuthor:Bridgett Gillespie M.D. HDate:11/04/21 1. Abdominal pain (R10.9: Un specified abdominal pain) 2. Urinary tract infection (N39.0: Urinary tract infection, site not specified) Orders: ceftriaxone + Sodium Chloride 0.9% intravenous solution 50 mL, 1,000 mg = 1 EA, IV Piggyback, Once,Stop date 11/04/21 13:24:00 EDT, STAT, Start date [...] Scheduled Provider:Breanna Gu CNP Location:[facility] Appointment Type: ER/Hospital Follow Up Appointment Date:11/14/2021 12:15:00 PM Scheduled Provider: Location[facility] Appointment Type:NM Myocard Spect Multi Rest/Stress-Res Appointment Date:11/14/2021 01:15:00 PM Scheduled Provider: Location:[facility] Appointment Type:NM Myocard Spect Multi Rest/Stress - R Appointment Date:11/14/2021 01:45:00 PM Scheduled Provider: Location:[facility] Appointment Type:NM Myocard Spect Multi Rest/Stress-Str Appointment Date:11/14/2021 02:45:00 PM Scheduled Provider: Location[facility] Appointment Type:NM Myocar Spect Multi Rest/Stress - St Appointment Date:11/20/2021 11:45:00 AM Scheduled Provider:[facility]uriy Fraser [facility]iology [facility] Up () Appointment Date:01/01/2022 02:00:00 PM Scheduled Provider:Breanna Gu CNP Location:[facility] Appointment Type: Open Future Scheduled Tests Laboratory* Fecal WBC Lactoferrin 10/30/21 * HgbA1c 07/29/21 * Enteric Panel by PCR 10/30/21 * Thyroid Stimulating Hormone 07/29/21 Radiology* NM Myocardial Spect Rest/Stress 1 Day 11/14/21 * Echo Transthoracic Complete 09/03/21 [facility]06[facility]-2022 Hospital Discharge instructions Patient Education 11/06/2021 11:33:32 Urinary Tract Infection, Adult, Tuhu-ng-Szds Urinary Tract Infection, Adult A urinary tract [...] Follow these instructions at home: Medicines Take dnei-mag-wbutjkj and prescription medicines only as told by [...] 10/27/2008 Document Revised: 04/28/2019 Document Reviewed: 11/18/2018 [employer] Patient Education 2020 [employer]. 11/06/2021 11:33:32 Urinary Tract Infection, Adult, Hgiv-qz-Cgqg Urinary Tract Infection, Adult A urinary tract [...] Follow these instructions at home: Medicines Take umfj-ivu-lyasvkz and prescription medicines only as told by [...] 10/27/2008 Document Revised: 04/28/2019 Document Reviewed: 11/18/2018 [employer] Patient Education 2020 WORK[employer]KS. 11/06/2021 11:33:28 Antibiotic Medicine, Adult, Gawt-hu-Hrpe Antibiotic Medicine, Adult Antibiotic medicines treat infections [...] 02/17/2009 Document Revised: 06/17/2019 Document Reviewed: 05/13/2017 [employer] Patient Education 2020 [employer] 11/06/2021 11:33:28 Antibiotic Medicine, Adult, Deew-gf-Byfu Antibiotic Medicine, Adult Antibiotic medicines treat infections [...] 02/17/2009 Document Revised: 06/17/2019 Document Reviewed: 05/13/2017 [employer] Patient Education 2020 [employer]. Follow Up Care 11/04/2021 11:24:24 With:Breanna Gu Address:Unknown When: Unknown [facility]06-08-2022 Evaluation + Plan note Future Scheduled Tests Laboratory* Fecal WBC Lactoferrin 10/30/21 * HgbA1c 07/29/21 * Enteric Panel by PCR 10/30/21 * Thyroid Stimulating Hormone 07/29/21 Radiology* NM Myocardial Spect Rest/Stress 1 Day 12/16/21 * Echo Transthoracic Complete 09/03/21 [facility] 06-08-2022 Evaluation + Plan note Future Scheduled Tests Laboratory* Fecal WBC Lactoferrin 10/30/21 * Enteric Panel by PCR 10/30/21 Radiology* NM Myocardial Spect Rest/Stress 1 Day 12/16/21 * Echo Transthoracic Complete 09/03/21 [facility]05-18-2022 Hospital Discharge instructions Patient Education [...] Follow these instructions at home: Medicines Take jajz-nbu-cojrsoy and prescription medicines only as told by [...] and water are not available, use hand bench machine operator. Avoid contact with people who have [...] 06/18/2005 Document Revised: 03/24/2019 Document Reviewed: 10/29/2016 [employer] Patient Education 2020 MiniTime Follow Up Care 10/09/2021 15:26:41 With:Breanna Gu [...] any new or worsening symptoms. [facility]05-09-2022 Hospital Discharge instructions Patient Education [...] food choices, such as grocery stores and [employer]. What are the signs or symptoms? The [...] and how much exercise you get. Take zfux-wcw-vjjsswg and prescription medicines only as told by [...] 06/18/2005 Document Revised: 01/13/2019 Document Reviewed: 01/13/2019 [employer] Patient Education 2020 WORK[employer] WORKS. 09/30/2021 14:51:20 Hypothyroidism Hypothyroidism Hypothyroidism is when [...] away. Follow these instructions at home: Take yqdr-yld-timrrfh and prescription medicines only as told by [...] 05/11/2006 Document Revised: 04/23/2018 Document Reviewed: 04/21/2018 [employer] Patient Education 2020 [employer]. 09/30/2021 14:51:16 Preventing Diabetes Mellitus Complications Preventing [...] lead to tooth loss. To prevent this: [place] your teeth twice a day. Floss at [...] 01/27/2012 Document Revised: 08/09/2018 Document Reviewed: 02/07/2017 [employer] Patient Education 2020 [employer]. 09/30/2021 14:51:12 General Anesthesia, Adult General Anesthesia, [...] including vitamins, herbs, eye drops, creams, and sjob-hjs-lvzucfr medicines. Any problems you or family members [...] provider tells you to take them. Taking mvdp-fbr-ccvvndg medicines, vitamins, herbs, and supplements. Do not [...] 08/17/2008 Document Revised: 09/28/2018 Document Reviewed: 12/25/2017 [employer] Patient Education 2019 WORK[employer] WORKS. [facility] 01-21-2022 Evaluation note* Encounter Date Diagnosis Assessment Notes Treatment Notes Treatment Clinical Notes May, Contact with and (ramirez spected) exposure to other viral communicable diseases (ICD-10 - Z20.828) May,OVID-19 (ICD-10 - U07.1) Drink plenty of fluids, get plenty of rest. Continue home medications as prescribed. Take the Zithromax as prescribed until gone. Use the albuterol inhaler as prescribed as needed for cough or shortness of breath. Follow-up with your family physician if no improvement in 2 to 3 days. You must quarantine for 10 days after the onset of your symptoms. May,ther Additional time spent conducting pre-visit phone call, screening for symptoms, instructions on social distancing, application and removal of PPE, and cleaning of examination room, equipment and supplies was preformed. Patient education given for testing methodology and results. Patient care instructions given in writting by [facility] Care At Home document. [employer] Other Consult note Author Lawrence Kim [facility] August 20, 2022 10:27amNote Date/TimeMarch 2022 10:[place] [address] Infect. Disease Consult Note Signed Patient: Addie Jean Baptiste MR#: [id number] : 1975 Acct:[id number] Age/Sex: 47 / F Adm Date: 3 Loc: Room: [address] [place] [address] Type: ADM INOo Attending Dr: Jeana Martini [...] me she was hospitalized in July at [facility] for 4 days for this. She apparently [...] negative unless noted below or in HPI [facility] Attestation Statement: The following information was validated [...] 5 Mg Tablet) 5 mg PO DAILY [facility] Stop: 08/20/23 09:39 Clonidine HCl (Clonidine 0.1 Mg Tablet) 0.1 mg PO Q4H PRN PRN Reason: Hypertension Stop: 08/20/23 03:40 Dextrose (Dextrose 50% In Water 25 Gm/50 Ml Syringe) 0 gm IV-PUSH PRN PRN PRN Reason: Hypoglycemia Stop: 08/20/23 03:40 Enoxaparin Sodium (Enoxaparin 40 Mg/0.4 Ml Syringe) 40 mg SUBCUT DAILY@1000 [facility] Stop: 08/20/23 09:59 Last Admin: 08/20/22 09:29 [...] % (Auto) 64.7 Lymph % (Auto) 27.3 [place] % (Auto) 6.0 Eos % (Auto) 1.3 Baso % (Auto) 0.7 Nucleat RBC Rel Count 0.0 Neut # (Auto) 5.5 Lymph # (Auto) 2.3 [place] # (Auto) 0.5 Eos # (Auto) 0.1 [...] Color Urine Appearance Urine pH Ur Specific [place] Urine Protein Urine Glucose (UA) Urine Ketones [...] MPV Neut % (Auto) Lymph % (Auto) [place] % (Auto) Eos % (Auto) Baso % (Auto) Nucleat RBC Rel Count Neut # (Auto) Lymph # (Auto) [place] # (Auto) Eos # (Auto) Baso # [...] Appearance Clear Urine pH 6.5 Ur Specific [place] 1.017 Urine Protein 100 H Urine Glucose [...] % (Auto) 68.9 Lymph % (Auto) 22.6 [place] % (Auto) 6.9 Eos % (Auto) 1.1 Baso % (Auto) 0.5 Nucleat RBC Rel Count 0.2 Neut # (Auto) 6.2 Lymph # (Auto) 2.0 [place] # (Auto) 0.6 Eos # (Auto) 0.1 [...] Color Urine Appearance Urine pH Ur Specific [place] Urine Protein Urine Glucose (UA) Urine Ketones [...] MPV Neut % (Auto) Lymph % (Auto) [place] % (Auto) Eos % (Auto) Baso % (Auto) Nucleat RBC Rel Count Neut # (Auto) Lymph # (Auto) [place] # (Auto) Eos # (Auto) Baso # [...] Color Urine Appearance Urine pH Ur Specific [place] Urine Protein Urine Glucose (UA) Urine Ketones [...] MPV Neut % (Auto) Lymph % (Auto) [place] % (Auto) Eos % (Auto) Baso % (Auto) Nucleat RBC Rel Count Neut # (Auto) Lymph # (Auto) [place] # (Auto) Eos # (Auto) Baso # [...] Color Urine Appearance Urine pH Ur Specific [place] Urine Protein Urine Glucose (UA) Urine Ketones [...] On IV Unasyn. Podiatry was consulted. Probably wo uldbenefit from appropriate wound care, better compliance on management of her sugars and short course of oral antibiotic. Documented By: Lawrence Kim MD 08/20/22 1020 Signed By: <Electronically signed by MD Lawrence Kim> 08/20/[address] [place] [address] Work Phone: Consult note Author Swapnil Castillo [facility] August 20, 2022 1:14pmNote Date/TimeMarch 2022 1:13[place] [address] Podiatry Consult Note Signed Patient: Addie Jean Baptiste MR#: [id number] : 1975 Acct:[id number] Age/Sex: 47 / F Adm Date: 3 Loc: Room: [address] [place] [address] Type: ADM IN Attending Dr: Jeana Martini MD Copies to: LUPE Muñiz MD~ HPI Data of Consult Consult Date: 07/22/22 Requesting Physician: Jeana Martini MD Primary Care Provider: LOLI Quintero Consult Narrative History of present illness: Ms. Jean Baptiste is a 47 year old female seen today per request of hospitalist for leftgreat toe infectionas well and cellulitis to left foot. Patient [...] toe area and has been on oral antibioticsin the past with ER visits in the [...] solution (Admelog U-100 Insulin lispro) See Rx Instructions.Route .COMPLEX 09/07/18 [History Confirmed 09/12/21] levetiracetam 500 [...] in possibly having surgery again. No further follow-upat this time please contact podiatry if any [...] <Electronically signed by LUPE Castillo> 08/20/22 [address] [facility] Work Phone: Consult note Author Shameka Romero [facility] August 21, 2022 4:02pmNote Date/TimeMarch 2022 4:00pm[place] [address] Vascular Surgery Consult Note Signed Patient: Addie Jean Baptiste MR#: [id number] : 1975 Acct:[id number] Age/Sex: 47 / F Adm Date: 3 Loc: Room: [address] [place] [address] Type: ADM IN Attending Dr: Jeana Martini MD Copies to: Laurent Franco POWER WASHERCheC MD Jeana Robert MD~ HPI Consult HPI Reason for consult: Left great toe ulcer History of present illness: Ms. Jean Baptiste is a 47 year old female with a left great toe ulcer. Vascular surgerywas asked to see herwith regards to this problem. She also has diminished blood flow in her left foot. Patient states this been present for over a week or 2. This patient does have longstanding diabetes she also has a Mediport in for IV access and she has a pacemaker and defibrillator. cc:: CC: Jeana Martini MD Data of Consult Consult date: 08/21/2022 Requesting Physician: Jeana Martini MD [facility] Vaccinated for COVID-19?: Yes Medical History Anxiety [...] % (Auto) 69.4 Lymph % (Auto) 20.6 [place] % (Auto) 7.4 Eos % (Auto) 1.8 Baso % (Auto) 0.8 Nucleat RBC Rel Count 0.0 Neut # (Auto) 5.7 Lymph # (Auto) 1.7 [place] # (Auto) 0.6 Eos # (Auto) 0.2 [...] MPV Neut % (Auto) Lymph % (Auto) [place] % (Auto) Eos % (Auto) Baso % (Auto) Nucleat RBC Rel Count Neut # (Auto) Lymph # (Auto) [place] # (Auto) Eos # (Auto) Baso # [...] based on her BMI. Unfortunately I did noti ce that her creatinine jumped yesterday. We may [...] <Electronically signed by Shameka Romero MD> 08/21/22 [address] [facility] Work Phone: Discharge summary Author Jeana Martini [facility] August 22, 2022 1:35pmNote Date/TimeMarch 2022 1:30[place] [address] Discharge Summary Signed Patient: Addie Jean Baptiste MR#: [id number] : 1975 Acct:[id number] Age/Sex: 47 / F Adm Date: 3 Loc: Room: [address] [place] [address]: Jeana Martini MD Copies to: Laurent Franco POWER WASHERKandi Martini MD~ Providers Date of Discharge: 08/22/22 Discharging Provider: Jeana Maritni Primary Care Provider: Laurent Franco Consults: 08/20/22 [...] on intravenous antibiotic Patient was seen by translator interpreter who recommended and performed bedside incision and drainage to abscess. Patient is cleared by podiatry and infectious disease to be discharged home on oral Augmentin afterreceiving few days of intravenous Unasyn. I ordered [...] aspirin and statin given her diabetes, hypertension andPVD. Patient was found to have vitamin D [...] however these will need to be titrated upand down in the outpatient setting to achieve [...] BUN 20, Creatinine 1.22 H, Est GFR (CKD-EPI) 55.771, Glucose 141 H, Calcium8.1 L, Phosphorus 3.8, Magnesium 1.6 L 08/21/22 [...] place, time and person, morbidly obese HEENT: [place] conjunctiva and NL buccal mucosa Neck: Supple, [...] ask your primary care provider to obtain [facility] records entirely to follow up on all of the abnormal physical, laboratory, and imaging findings thatI have not addressed. Please follow-up with Dr. Romero to evaluate your circulation Please return back to the emergency room or seek medical attention if your symptoms worsen or return. Discharging you from [facility] does not mean that your medical care [...] to 2 weeks. Please call for appointment.) [facility] - 08/25/22 10:15 am (Follow-up with your Primary Care Provider, call office to reschedule if needed. ) Documented By: Jeana Martini MD 08/22/22 1325 Signed By: <Electronically signed by Jeana Martini MD> 08/22/22 [address] [facility] Work Phone: Evaluation + Plan note Future Appointments Appointment Date:09/02/2021 02:45:00 PM Scheduled Provider:Milena STEVENS, Kirk Hsu [facility]:Cardiology New Patient (FT) Appointment Date:10/30/2021 03:40:00 PM Scheduled Provider:Breanna Gu CNP Location:[facility] Appointment Type: Open Future Scheduled Tests Laboratory* HgbA1c 07/29/21 * Microalbumin Level Urine 07/29/21 * CBC w/ Auto Diff 07/29/21 * Comprehensive Metabolic Panel 07/29/21 * Lipid Panel 07/29/21 * Thyroid Stimulating Hormone 07/29/21 [facility] Future App[facility]ments Appointment Date:10/15/2021 01:00:00 PM Scheduled Provider:Nancy GUTIERREZ CNP [facility] Type:Cardiology Follow Up (FT) Appointment Date:10/30/2021 03:40:00 PM Scheduled Provider:Breanna Gu CNP Location:[facility] Appointment Type:FM Open Future Scheduled Tests Laboratory* HgbA1c 07/29/21 * Microalbumin Level Urine 07/29/21 * CBC w/ Auto Diff 07/29/21 * Comprehensive Metabolic Panel 07/29/21 * Lipid Panel 07/29/21 * Thyroid Stimulating Hormone 07/29/21 [facility] Future Appointments Appointment Date:09/30/2021 02:00:00 PM Scheduled Provider:Breanna Gu CNP Location:[facility] Appointment Type:FM Open Appointment Date:10/15/2021 01:00:00 PM Scheduled Provider:Nancy GUTIERREZ CNP [facility] Type:Cardiology Follow Up (FT) Appointment Date:10/30/2021 03:40:00 PM Scheduled Provider:Breanna Gu CNP Location:[facility] Appointment Type:FM Open Future Scheduled Tests Laboratory* HgbA1c 07/29/21 * Microalbumin Level Urine 07/29/21 * CBC w/ Auto Diff 07/29/21 * Comprehensive Metabolic Panel 07/29/21 * Lipid Panel 07/29/21 * Thyroid Stimulating Hormone 07/29/21 Radiology* Echo Transthoracic Complete 09/03/21 [facility] Future Appointments Appointment Date:10/15/2021 01:00:00 PM Scheduled Provider:Nancy GUTIERREZ CNP [facility] Type:Cardiology Follow Up (FT) Appointment Date:01/01/2022 02:00:00 PM Scheduled Provider:Breanna Gu CNP Location:[facility] Appointment Type: Open Future Scheduled Tests Laboratory* HgbA1c 09/30/21 * HgbA1c 07/29/21 * Microalbumin Level Urine 07/29/21 * CBC w/ Auto Diff 07/29/21 * Comprehensive Metabolic Panel 07/29/21 * Lipid Panel 07/29/21 * Thyroid Stimulating Hormone 09/30/21 * Thyroid Stimulating Hormone 07/29/21 Radiology* Echo Transthoracic Complete 09/03/21 [facility] Evaluation + Plan note Future Appointments Appointment Date:10/15/2021 01:00:00 PM Scheduled Provider:Nancy GUTIERREZ CNP [facility] Type:Cardiology Follow Up (FT) Appointment Date:01/01/2022 02:00:00 PM Scheduled Provider:Breanna Gu CNP Location:[facility] Appointment Type:FM Open Future Scheduled Tests Laboratory* HgbA1c 07/29/21 * Thyroid Stimulating Hormone 07/29/21 Radiology* Echo Transthoracic Complete 09/03/21 [facility] Future Appointments Appointment Date:10/15/2021 01:00:00 PM Scheduled Provider:Nancy GUTIERREZ CNP [facility] Type:Cardiology Follow Up (FT) Appointment Date:01/01/2022 02:00:00 PM Scheduled Provider:Breanna Gu CNP Location:[facility] Appointment Type:FM Open Future Scheduled Tests Laboratory* HgbA1c 07/29/21 * Thyroid Stimulating Hormone 07/29/21 Radiology* NM Myocardial Spect Rest/Stress 1 Day 10/07/21 * Echo Transthoracic Complete 09/03/21 [facility] Future Appointments Appointment Date:11/14/2021 12:15:00 PM Scheduled Provider: [facility] App[facility] Type:NM Myocard Spect Multi Rest/Stress-Res Appointment Date:11/14/2021 01:15:00 PM Scheduled Provider: [facility] Appointment Type:NM Myocard Spect Multi Rest/Stress - R Appointment Date:11/14/2021 01:45:00 PM Scheduled Provider: [facility] Appointment Type:NM Myocard Spect Multi Rest/Stress-Str Appointment Date:11/14/2021 02:45:00 PM Scheduled Provider: [facility] Appointment Type:NM Myocar Spect Multi Rest/Stress - St Appointment Date:11/20/2021 11:45:00 AM Scheduled Provider:Yuriy Fraser MD [facility] Type:Cardiology Follow Up (FT) Appointment Date:01/01/2022 02:00:00 PM Scheduled Provider:Breanna Gu CNP Location:[facility] Appointment Type:FM Open Diagnostic Tests Pending * Urine Culture 10/30/21 Future Scheduled Tests Laboratory* Fecal WBC Lactoferrin 10/30/21 * HgbA1c 07/29/21 * Enteric Panel by PCR 10/30/21 * Thyroid Stimulating Hormone 07/29/21 Radiology* NM Myocardial Spect Rest/Stress 1 Day 11/14/21 * Echo Transthoracic Complete 09/03/21 [facility] Future Appointments Appointment Date:11/20/2021 11:45:00 AM Scheduled Provider:Yuriy Fraser MD [facility] Type:Cardiology Follow Up (FT) Appointment Date:12/02/2021 10:00:00 AM Scheduled Provider:Breanna Gu CNP Location:[facility] Appointment Type: ER/Hospital Follow Up Appointment Date:01/01/2022 02:00:00 PM Scheduled Provider:Breanna Gu CNP Location:[facility] Appointment Type: Open Future Scheduled Tests Laboratory* Fecal WBC Lactoferrin 10/30/21 * HgbA1c 07/29/21 * Enteric Panel by PCR 10/30/21 * Thyroid Stimulating Hormone 07/29/21 Radiology* Echo Transthoracic Complete 09/03/21 [facility] Future Appointments Appointment Date:12/02/2021 10:00:00 AM Scheduled Provider:Breanna Gu CNP Location:[facility] Appointment Type: ER/Hospital Follow Up Appointment Date:01/01/2022 02:00:00 PM Scheduled Provider:Breanna Gu CNP Location:[facility] Appointment Type: Open Future Scheduled Tests Laboratory* Fecal WBC Lactoferrin 10/30/21 * HgbA1c 07/29/21 * Enteric Panel by PCR 10/30/21 * Thyroid Stimulating Hormone 07/29/21 Radiology* Echo Transthoracic Complete 09/03/21 [facility] Future Appointments Appointment Date:12/16/2021 08:30:00 AM Scheduled Provider: [facility] Appointment Type:NM Myocard Spect Multi Rest/Stress-Res Appointment Date:12/16/2021 09:30:00 AM Scheduled Provider: [facility] Appointment Type:NM Myocard Spect Multi Rest/Stress - R Appointment Date:12/16/2021 10:00:00 AM Scheduled Provider: [facility] Appointment Type:NM Myocard Spect Multi Rest/Stress-Str Appointment Date:12/16/2021 11:00:00 AM Scheduled Provider: Location:[facility] Appointment Type:NM Myocar Spect Multi Rest/Stress - St Appointment Date:01/01/2022 02:00:00 PM Scheduled Provider:Breanna Gu CNP Location:[facility] Appointment Type: Open Future Scheduled Tests Laboratory* Fecal WBC Lactoferrin 10/30/21 * HgbA1c 07/29/21 * Enteric Panel by PCR 10/30/21 * Thyroid Stimulating Hormone 07/29/21 Radiology* NM Myocardial Spect Rest/Stress 1 Day 12/16/21 * Echo Transthoracic Complete 09/03/21 [facility] Evaluation + Plan note Future Appointments Appointment Date:01/01/2022 02:00:00 PM Scheduled Provider:Breanna Gu CNP Location:[facility] Appointment Type:FM Open Future Scheduled Tests Laboratory* Fecal WBC Lactoferrin 10/30/21 * HgbA1c 07/29/21 * Enteric Panel by PCR 10/30/21 * Thyroid Stimulating Hormone 07/29/21 Radiology* NM Myocardial Spect Rest/Stress 1 Day 12/16/21 * Echo Transthoracic Complete 09/03/21 [facility] Diagnosis Other insomnia- Primary documented in this encounter [facility] Work Phone: evaluation note* Diagnosis Onset Date Resolution Status Diabetic foot infection acuteHypertensionacuteHypokalemiaacuteHypomagnesemiaacute [facility] Work Phone: Evaluation note* Diagnosis Onset Date Resolution Status Abscess of toenail on left foot acuteCellulitis of left [id number] foot infection acuteHypertensionacuteHypokalemiaacuteHypomagnesemiaacuteHypophosphatemiaacute OnychocryptosisacutePeripheral vascular diseaseacuteToe infectionacuteToe pain, leftacuteDiabeteschronicNicotine dependencechronic [facility] Work Phone: Evaluation noteNo [facility] Other Evaluation note* Diagnosis Weakness of lower extremity, unspecified laterality- Primary Urinary incontinence, unspecified type Saddle anesthesia Disturbance of skin sensation Type 2 diabetes mellitus with diabetic neuropathy, unspecified whether snf insulin use ([facility]) documented in this encounter [facility] note* Diagnosis Right knee pain, unspecified chronicity- Primary documented in this encounter [facility] note* Diagnosis Strain of right hamstring, initial encounter- Primary Strain of right knee, initial encounter Other specified diabetes mellitus with other specified complication, unspecified whether snf insulin use ([facility]) documented in this encounter [facility] note* Diagnosis Chest pain, unspecified type- Primary Chest pain, unspecified type Flank pain Abdominal pain, unspecified site Type 2 diabetes mellitus with other specified complication, unspecified whether snf insulin use ([facility]) Seizure ([facility]) Other convulsions documented in this encounter [facility] note* Diagnosis Chest pain- Primary Unspecified chest pain Chest pain, unspecified type Diabetic peripheral neuropathy (HCC) Type II or unspecified type diabetes mellitus with neurological manifestations, not stated as uncontrolled Seizure disorder ([facility]) Unspecified epilepsy without mention of intractable epilepsy Morbid obesity (HCC) Morbid obesity Seizure (HCC) Other convulsions Seizures (HCC) Other convulsions Bipolar 1 disorder ([facility]) Diabetic infection of left foot ([facility]) Metabolic acidosis, normal anion gap (NAG) Acidosis SOLO (acute kidney injury) ([facility]) Abscess of chin Cellulitis and abscess of face Pacemaker Cardiac pacemaker in situ History of MRSA infection Hypertension, unspecified type Cellulitis of chin Cellulitis and abscess of face documented in this encounter [facility] note* Diagnosis Non-recurrent acute suppurative otitis media of left ear without spontaneous rupture of tympanic membrane- Primary Type 2 diabetes mellitus with diabetic polyneuropathy, with long-term current use of insulin ([facility]) Diabetic ulcer of right foot associated with type 2 diabetes mellitus, unspecified part of foot, unspecified ulcer stage ([facility]) Diabetic peripheral neuropathy ([facility]) Type II or unspecified type diabetes mellitus with neurological manifestations, not stated as uncontrolled Hypertensive urgency Chronic obstructive pulmonary disease, unspecified COPD type (HCC) Chronic chest pain Unspecified chest pain S/P placement of cardiac pacemaker Hypothyroidism, unspecified type Seizures (HCC) Other convulsions Bipolar 1 disorder ([facility]) Insomnia, unspecified type Gastroesophageal reflux disease, unspecified [...] both lower extremities [facility] Pain of left lower leg- Primary Pain in limb [facility] Muscle spasms of both [...] [facility] Diagnosis Right foot ulcer, with fat layer exposed ([facility])- [facility] Diagnosis Chronic pain syndrome- Primary Muscle spasms of both lower extremities Urinary incontinence, unspecified type Chronic nonintractable headache, unspecified headache type Chronic obstructive pulmonary disease, unspecified COPD type (HCC) Type 2 diabetes mellitus with diabetic polyneuropathy, with long-term current use of insulin ([facility]) Diabetic peripheral neuropathy ([facility]) Type II or unspecified type diabetes mellitus with neurological manifestations, not stated as uncontrolled Diabetic ulcer of right foot associated with type 2 diabetes mellitus, unspecified part of foot, unspecified ulcer stage ([facility]) Hypothyroidism, unspecified type Primary hypertension Unspecified essential hypertension Hypercholesterolemia Pure hypercholesterolemia S/P placement of cardiac pacemaker Seizures ([facility]) Other convulsions Bipolar 1 disorder ([facility]) Gastroesophageal reflux disease, unspecified whether esophagitis present Vitamin D deficiency Vitamin B12 deficiency Other B-complex deficiencies Cigarette nicotine dependence without complication [facility] Diagnosis Muscle spasms of both lower extremities [facility]* Diagnosis Bipolar 1 disorder ([facility])- Primary Post traumatic stress disorder (PTSD) Generalized anxiety disorder Insomnia, unspecified type [facility]* Diagnosis Primary hypertension- Primary Unspecified essential hypertension Subacute cough RUQ abdominal pain Abdominal pain, right upper quadrant Type 2 diabetes mellitus with diabetic polyneuropathy, with long-term current use of insulin ([facility]) Family history of pulmonary fibrosis [facility] Subacute cough- Primary Family history of pulmonary fibrosis [facility] Diagnosis Vision loss of left eye- [...] film insufficiency, unspecified [facility] Muscle spasms of both lower extremities Type 2 diabetes mellitus with diabetic polyneuropathy, with long-term current use of insulin ([facility]) [facility] Diagnosis [...] polyneuropathy, with long-term current use of insulin ([facility]) [facility] Diagnosis [...] obstructive pulmonary disease, unspecified COPD type (HCC) Family history of pulmonary fibrosis Retinal hemorrhage [...] polyneuropathy, with long-term current use of insulin ([facility]) [facility] Diagnosis Diabetic ulcer of right foot associated with type 2 diabetes mellitus, unspecified part of foot, unspecified ulcer stage ([facility])- Primary Primary hypertension Unspecified essential hypertension SOLO (acute kidney injury) ([facility]) Hypothyroidism, unspecified type Hyperlipidemia, unspecified hyperlipidemia type [...] [facility] Diagnosis Bipolar 1 disorder ([facility]) Insomnia, unspecified type documented in this encounter [...] polyneuropathy, with long-term current use of insulin ([facility]) Chronic obstructive pulmonary disease, unspecified COPD type ([facility]) Hypothyroidism, unspecified type History of stroke Transient ischemic attack (TIA), and cerebral infarction without residual deficits Seizures ([facility]) Other convulsions Hypercholesterolemia Pure hypercholesterolemia Chronic pain syndrome Urinary incontinence, unspecified type Bipolar 1 disorder ([facility]) Insomnia, unspecified type Gastroesophageal reflux disease, unspecified [...] myalgia and myositis [facility] Diagnosis Cellulitis of chin- Primary Cellulitis [...] of left foot [facility] Diagnosis Cellulitis of chin- Primary Cellulitis [...] whether esophagitis present [facility] Diagnosis Cellulitis of chin- Primary Cellulitis [...] Chronic pain syndrome [facility] Diagnosis Cellulitis of chin- Primary Cellulitis [...] for health-related screening [facility] Diagnosis [...] [facility] noteNo assessment information availableA[facility] Work Phone: Evaluation note* Diagnosis Cellulitis [...] [facility] Diagnosis Hyperglycemia- Primary Other abnormal glucose [...] appointment- Primary [facility] Diagnosis Cellulitis of chin- Primary Cellulitis and abscess of face Cellulitis Cellulitis and abscess of unspecified site Hyperglycemia Other abnormal glucose Severe sepsis (HCC) Type 2 diabetes mellitus with left diabetic foot infection (HCC) Diabetic infection of left foot (HCC) Abscess of chin Cellulitis and abscess of face Hypertension Unspecified essential hypertension Bipolar 1 disorder ([facility]) Seizures ([facility]) Other convulsions DDD (degenerative disc disease), lumbar Degeneration of lumbar or lumbosacral intervertebral disc Lumbar radiculopathy Thoracic or lumbosacral neuritis or radiculitis, unspecified Chronic pain syndrome [facility] Diagnosis Sudden loss of vision- Primary Sudden visual loss HHS (hypothenar hammer syndrome) Hyperosmolar hyperglycemic state (HHS) ([facility]) Hyperosmolar hyperglycemic state (HHS) ([facility]) SOLO (acute kidney injury) HHS (hypothenar hammer syndrome) [facility] Diagnosis Cellulitis of chin- Primary [...] or radiculitis, unspecified [facility]* Diagnosis Type 2 diabetes mellitus with hyperglycemia, with long-term current use of insulin ([facility])- Primary Encounter for dietary consultation Insulin long-term use ([facility]) Encounter for long-term (current) use of insulin Class 3 severe obesity due to excess calories with serious comorbidity and body mass index (BMI) of45.0 to 49.9 in adult ([facility]) Hyperlipemia, mixed Mixed hyperlipidemia Vitamin D deficiency Primary hypertension Unspecified essential hypertension Encounter for fitting or adjustment of insulin pump Fitting and adjustment of insulin pump [facility] Diagnosis Onset Date Resolution Status Admit Date BMI 50.0-59.9, adult acuteSeptember 2024 9:44amEssential hypertensionacuteSept2024 9:44amMixed hyperlipidemiaacuteSept2024 9:44amMorbid obesity due to excess caloriesacutept2024 9:44amNicotine use disorderacute February 20, 2025 9:44amNoncompliance with medicationsacuteFebruary 20, 2025 9:44amPeripheral vascular diseaseacuteSept2024 9:44amType 2 diabetes mellitus with circulatory disorder, with long-term currentacute February 20, 2025 9:44amBipolar 1 disorderchronicSeptember 2024 9:44am [facility] Work Phone: Evaluation note* Diagnosis Cellulitis of [...] lower extremity pain [facility] Diagnosis Cellulitis of chin- Primary Cellulitis and abscess of face Cellulitis Cellulitis and abscess of unspecified site Hyperglycemia Other abnormal glucose Severe sepsis (HCC) Type 2 diabetes mellitus with left diabetic foot infection (HCC) Diabetic infection of left foot (HCC) Abscess of chin Cellulitis and abscess of face Hypertension Unspecified essential hypertension Bipolar 1 disorder (HCC) Seizures (HCC) Other convulsions Back pain with radiculopathy- Primary Degeneration of intervertebral disc of lumbar region with discogenic back pain and lower extremity pain Chronic pain of right knee [facility] Diagnosis [...] Thoracic or lumbosacral neuritis or radiculitis, unspecified Lumbar stenosis with neurogenic claudication [facility] Author Ezekiel Mathew [facility] August 20, 2022 3:56amNote Date/TimeMarch 2022 3:56[place] [address] Hospitalist H&P Signed Patient: Addie Jean Baptiste MR#: [id number] : 1975 Acct:[id number] Age/Sex: 47 / F Adm Date: 3 Loc: Room: [address] [place] [address] Type: ADM INOo Attending Dr: Ezekiel Mathew [...] tramadol, Motrin, and Darvocet they did offer herTylenol. Her potassium was a little bit low at 3.3 in the ER did replace that her magnesium was lowat 1.2 inthe ER did replace that. Markers [...] up into the lower part of her ankleand calf. Per her description there is not [...] solution (Admelog U-100 Insulin lispro) See Rx Instructions.Route .COMPLEX 09/07/18 [History Confirmed 09/12/21] levetiracetam 500 [...] % (Auto) 27.3 % (.) 08/20/22 00:19 Faulkner % (Auto) 6.0 % (.) 08/20/22 00:19 Eos % (Auto) 1.3 % (.) 08/20/22 00:19 Baso % (Auto) 0.7 % (.) 08/20/22 00:19 Nucleat RBC Rel Count 0.0 /100 WBC (0-0.5) 08/20/22 00:19 Neut # (Auto) 5.5 x10E3/uL (1.8-7.7) 08/20/22 00:19 Lymph # (Auto) 2.3 x10E3/uL (1.00-4.8) 08/20/22 00:19 Faulkner # (Auto) 0.5 x10E3/uL (0.0-0.8) 08/20/22 00:19 [...] pH 6.5 (5.0-9.0) 08/20/22 01:07 Ur Specific [place] 1.017 (1.001-1.030) 08/20/22 01:07 Urine Protein 100 [...] She states that she does have a translator interpreter with Dr. Box. Since his partner Dr. Castillo comes to the hospital I will consult him. I think that the Unasyn startedby the emergency room is reasonable. She is [...] signed by Ezekiel Mathew, DO> 08/20/22 0356 [facility] Work Phone: History general Narrative - Reported* Type Description Date Medical History bipolar Medical HistorydepressionMedical Historycoronary artery diseaseMedical History seizuresMedical [id number] HistoryHLPMedical HistorypacemakerMedical HistoryMRSAMedical Historyherniated discMedical HistoryHypertentionMedical Historystomach ulcersMedical Historydiabetes type 2Medical Historydiabetic neuropathySurgical Historyankle surgerySurgical HistoryhysterectomySurgical HistorycholecystectomySurgical Historywisdom teethSurgical Historypacemaker Surgical Historyportacath placementHospitalization Historysee above Hospitalization HistoryChest Pain3/2012[facility]Hospitalization HistoryBellev [id number] History Seizures-2018 [employer] Other History general Narrative - Reported* Type Description Date Medical History bipolar Medical HistorydepressionMedical Historycoronary artery diseaseMedical History seizuresMedical [id number] HistoryHLPMedical HistorypacemakerMedical HistoryMRSAMedical Historyherniated discMedical HistoryHypertentionMedical Historystomach ulcersMedical Historydiabetes type 2Medical Historydiabetic neuropathyMedical HistoryhypothryoidSurgical Historyankle surgerySurgical HistoryhysterectomySurgical HistorycholecystectomySurgical Historywisdom teeth Surgical HistorypacemakerSurgical Historyportacath placementHospitalization Historysee aboveHospitalization HistoryChest Pain3/2012[facility]2013Hospitalization HistoryBellthe christ [id number] HistorySeizures-2018Hospitalization Historytoe infection08/2022 [employer] Other Hospital course Narrative No data available for this section [facility] No data available for this section [facility] Discharge instructions* Attachments The following attachments cannot be sent through Care Everywhere. * Insomnia (Stateless) * Video: Sleeping Better (Stateless) * Video: Sleep and Your Health (Stateless) * Video: When You're Not Sleeping Well (Stateless) [facility] Hospital Discharge instructions Additional Instructions Please follow up with your nurse practitioner re: blood sugars and Aicd evaluation. Call Dr. Romero's office to reschedule and to schedule a PST appointment before surgery.[facility] Work Phone: Hospital Discharge instructions* Attachments The following attachments cannot be sent through Care Everywhere. * Toe Amputation: Post-op (Stateless) [facility] Additional [...] with any concerns. Thank you for choosing [facility] Work Phone: InstructionsNot on filedocumented in this encounter [facility]* Visit Type -SN HH OASIS Start of Care Discipline -Halfway ProblemStart DateStatusGoalsInterventions Psychosocial Health Disciplines: Halfway 04/01/2023 Active 1 goal linked to scheduled/documented intervention 1 goal intervention scheduled/documented in this visit Neurological Disciplines: Halfway 04/01/2023 Active 1 goal linked to scheduled/documented intervention 1 goal intervention scheduled/documented in this visit Respiratory Disciplines: Halfway 04/01/2023 Active 1 goal linked to scheduled/documented intervention 1 goal intervention scheduled/documented in this visit Cardiac Disciplines: Halfway 04/01/2023 Active 1 goal linked to scheduled/documented intervention 1 goal intervention scheduled/documented in this visit Diabetes Disciplines: Halfway 04/01/2023 Active 1 goal linked to scheduled/documented intervention 1 goal intervention scheduled/documented in this visit Assess and Instruct Home Visit Disciplines: Halfway 04/01/2023 Active 1 goal linked to scheduled/documented intervention 3 goal interventions scheduled/documented in this visit Medication Management Disciplines: Halfway 04/01/2023 Active 1 goal linked to scheduled/documented intervention 1 goal intervention scheduled/documented in this visit Pain Management Disciplines: Halfway 04/01/2023 Active 1 goal linked to scheduled/documented intervention 1 goal intervention scheduled/documented in this visit Assess POC Synopsis Disciplines: Halfway 04/01/2023 Active 2 goals linked to scheduled/documented interventions 2 goal interventions scheduled/documented in this visit GoalAssociated ProblemOutcomeGoal Met?Visit Notes Depression Psychosocial Health No Seizures Neurological No Generalized Shortness of Breath Respiratory No Cardiac Function Cardiac No Diabetes Diabetes No Home Care Plan Assess and Instruct Home Visit No Medications Medication Management No Pain Pain Management No Depression Assessment Assess POC Synopsis No Diabetic Foot Education Assess POC Synopsis No InterventionAssociated Problem/GoalStatusVarianceVisit Notes Instruct Depression Problem:Psychosocial Health Goal:Depression Completed Patient reports: see box office manager taught: patient Clinician instructed on: follow current [...] lighting, remove clutter and throw rugs, keep frequentlyused items in reach and emergency response system [...] Medication education completed today on medlist from [facility] medication(s). Patient/caregiver is able to teach back 25% of instruction. Patient to spanish moss picker meds from pharmacy and follow medlist [...] teaching [facility] Visit Type -SN HH OASIS Start of Care Discipline -Halfway ProblemStart DateStatusGoalsInterventions Psychosocial Health Disciplines: Halfway 04/01/2023 Active 1 goal linked to scheduled/documented intervention 1 goal intervention scheduled/documented in this visit Neurological Disciplines: Halfway 04/01/2023 Active 1 goal linked to scheduled/documented intervention 1 goal intervention scheduled/documented in this visit Respiratory Disciplines: Halfway 04/01/2023 Active 1 goal linked to scheduled/documented intervention 1 goal intervention scheduled/documented in this visit Cardiac Disciplines: Halfway 04/01/2023 Active 1 goal linked to scheduled/documented intervention 1 goal intervention scheduled/documented in this visit Diabetes Disciplines: Halfway 04/01/2023 Active 1 goal linked to scheduled/documented intervention 1 goal intervention scheduled/documented in this visit Assess and Instruct Home Visit Disciplines: Halfway 04/01/2023 Active 1 goal linked to scheduled/documented intervention 3 goal interventions scheduled/documented in this visit Medication Management Disciplines: Halfway 04/01/2023 Active 1 goal linked to scheduled/documented intervention 1 goal intervention scheduled/documented in this visit Pain Management Disciplines: Halfway 04/01/2023 Active 1 goal linked to scheduled/documented intervention 1 goal intervention scheduled/documented in this visit Assess POC Synopsis Disciplines: Halfway 04/01/2023 Active 2 goals linked to scheduled/documented interventions 2 goal interventions scheduled/documented in this visit GoalAssociated ProblemOutcomeGoal Met?Visit Notes Depression Psychosocial Health No Seizures Neurological No Generalized Shortness of Breath Respiratory No Cardiac Function Cardiac No Diabetes Diabetes No Home Care Plan Assess and Instruct Home Visit No Medications Medication Management No Pain Pain Management No Depression Assessment Assess POC Synopsis No Diabetic Foot Education Assess POC Synopsis No InterventionAssociated Problem/GoalStatusVarianceVisit Notes Instruct Depression Problem:Psychosocial Health Goal:Depression Completed Patient reports: see box office manager taught: patient Clinician instructed on: follow current [...] lighting, remove clutter and throw rugs, keep frequentlyused items in reach and emergency response system [...] teach back 25% of instruction. Patient to spanish moss picker meds from pharmacy and follow medlist [...] teaching [facility] Visit Type -SN HH OASIS Start of Care Discipline -Halfway ProblemStart DateStatusGoalsInterventions Psychosocial Health Disciplines: Halfway 04/01/2023 Active 1 goal linked to scheduled/documented intervention 1 goal intervention scheduled/documented in this visit Neurological Disciplines: Halfway 04/01/2023 Active 1 goal linked to scheduled/documented intervention 1 goal intervention scheduled/documented in this visit Respiratory Disciplines: Halfway 04/01/2023 Active 1 goal linked to scheduled/documented intervention 1 goal intervention scheduled/documented in this visit Cardiac Disciplines: Halfway 04/01/2023 Active 1 goal linked to scheduled/documented intervention 1 goal intervention scheduled/documented in this visit Diabetes Disciplines: Halfway 04/01/2023 Active 1 goal linked to scheduled/documented intervention 1 goal intervention scheduled/documented in this visit Assess and Instruct Home Visit Disciplines: Halfway 04/01/2023 Active 1 goal linked to scheduled/documented intervention 3 goal interventions scheduled/documented in this visit Medication Management Disciplines: Halfway 04/01/2023 Active 1 goal linked to scheduled/documented intervention 1 goal intervention scheduled/documented in this visit Pain Management Disciplines: Halfway 04/01/2023 Active 1 goal linked to scheduled/documented intervention 1 goal intervention scheduled/documented in this visit Assess POC Synopsis Disciplines: Halfway 04/01/2023 Active 2 goals linked to scheduled/documented interventions 2 goal interventions scheduled/documented in this visit GoalAssociated ProblemOutcomeGoal Met?Visit Notes Depression Psychosocial Health No Seizures Neurological No Generalized Shortness of Breath Respiratory No Cardiac Function Cardiac No Diabetes Diabetes No Home Care Plan Assess and Instruct Home Visit No Medications Medication Management No Pain Pain Management No Depression Assessment Assess POC Synopsis No Diabetic Foot Education Assess POC Synopsis No InterventionAssociated Problem/GoalStatusVarianceVisit Notes Instruct Depression Problem:Psychosocial Health Goal:Depression Completed Patient reports: see box office manager taught: patient Clinician instructed on: follow current [...] lighting, remove clutter and throw rugs, keep frequentlyused items in reach and emergency response system [...] Medication education completed today on medlist from [facility] medication(s). Patient/caregiver is able to teach back 25% of instruction. Patient to spanish moss picker meds from pharmacy and follow medlist [...] teaching [facility] Visit Type -SN HH OASIS Start of Care Discipline -Halfway ProblemStart DateStatusGoalsInterventions Psychosocial Health Disciplines: Halfway 04/01/2023 Active 1 goal linked to scheduled/documented intervention 1 goal intervention scheduled/documented in this visit Neurological Disciplines: Halfway 04/01/2023 Active 1 goal linked to scheduled/documented intervention 1 goal intervention scheduled/documented in this visit Respiratory Disciplines: Halfway 04/01/2023 Active 1 goal linked to scheduled/documented intervention 1 goal intervention scheduled/documented in this visit Cardiac Disciplines: Halfway 04/01/2023 Active 1 goal linked to scheduled/documented intervention 1 goal intervention scheduled/documented in this visit Diabetes Disciplines: Halfway 04/01/2023 Active 1 goal linked to scheduled/documented intervention 1 goal intervention scheduled/documented in this visit Assess and Instruct Home Visit Disciplines: Halfway 04/01/2023 Active 1 goal linked to scheduled/documented intervention 3 goal interventions scheduled/documented in this visit Medication Management Disciplines: Halfway 04/01/2023 Active 1 goal linked to scheduled/documented intervention 1 goal intervention scheduled/documented in this visit Pain Management Disciplines: Halfway 04/01/2023 Active 1 goal linked to scheduled/documented intervention 1 goal intervention scheduled/documented in this visit Assess POC Synopsis Disciplines: Halfway 04/01/2023 Active 2 goals linked to scheduled/documented interventions 2 goal interventions scheduled/documented in this visit GoalAssociated ProblemOutcomeGoal Met?Visit Notes Depression Psychosocial Health No Seizures Neurological No Generalized Shortness of Breath Respiratory No Cardiac Function Cardiac No Diabetes Diabetes No Home Care Plan Assess and Instruct Home Visit No Medications Medication Management No Pain Pain Management No Depression Assessment Assess POC Synopsis No Diabetic Foot Education Assess POC Synopsis No InterventionAssociated Problem/GoalStatusVarianceVisit Notes Instruct Depression Problem:Psychosocial Health Goal:Depression Completed Patient reports: see box office manager taught: patient Clinician instructed on: follow current [...] lighting, remove clutter and throw rugs, keep frequentlyused items in reach and emergency response system [...] teach back 25% of instruction. Patient to spanish moss picker meds from pharmacy and follow medlist [...] teaching [facility]* Visit Type -BUDGET ANALYST Missed Visit Discipline -Home Health Aide ProblemStart DateStatusGoalsInterventions HH Aide Disciplines: Home Health Aide 04/01/2023 Active 1 goal linked to scheduled/documented intervention 9 goal interventions scheduled/documented in this visit GoalAssociated ProblemOutcomeGoal Met?Visit Notes Hygiene/Safety HH Aide No InterventionAssociated Problem/GoalStatusVarianceVisit Notes Patient Pain Reporting Problem:HH Aide Goal:Hygiene/Safety Scheduled Hair Care Problem:HH Aide Goal:Hygiene/Safety Scheduled Dressing Problem:HH Aide Goal:Hygiene/Safety Scheduled Foot Care Problem:HH Aide Goal:Hygiene/Safety Scheduled Shampoo Hair Problem:HH Aide Goal:Hygiene/Safety Scheduled Inspect Skin Problem:HH Aide Goal:Hygiene/Safety Scheduled Assist With Ambulation Problem:HH Aide Goal:Hygiene/Safety Scheduled Apply Lotion Problem:HH Aide Goal:Hygiene/Safety Scheduled Shower Problem:HH Aide Goal:Hygiene/Safety Scheduled documented in this [facility]* Visit Type -PT Initial Evaluation Discipline -Physical Therapy ProblemStart DateStatusGoalsInterventions Assess and Instruct Home Visit Disciplines: Physical Therapy 04/08/2023 Active 1 goal linked to scheduled/documented intervention 2 goal interventions scheduled/documented in this visit GoalAssociated ProblemOutcomeGoal Met?Visit Notes Home Care Plan Assess and Instruct Home Visit No InterventionAssociated Problem/GoalStatusVarianceVisit Notes Falls Problem:Assess and Instruct Home Visit Goal:Home Care Plan Scheduled Safety Problem:Assess and Instruct Home Visit Goal:Home Care Plan Scheduled documented in this encounter [facility]* Visit 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 -DOOR CLOSER MECHANIC Routine Discipline -Halfway ProblemStart DateStatusGoalsInterventions Assess and Instruct Home Visit Disciplines: Halfway 04/01/2023 Active 1 goal linked to scheduled/documented intervention 4 goal interventions scheduled/documented in this visit Medication Management Disciplines: Halfway 04/01/2023 Active 1 goal linked to scheduled/documented intervention 1 goal intervention scheduled/documented in this visit Pain Management Disciplines: Halfway 04/01/2023 Active 1 goal linked to scheduled/documented intervention 1 goal intervention scheduled/documented in this visit GoalAssociated ProblemOutcomeGoal Met?Visit Notes Home Care Plan Assess and Instruct Home Visit No Medications Medication Management No Pain Pain Management No InterventionAssociated Problem/GoalStatusVarianceVisit Notes Falls Problem:Assess and Instruct Home Visit [...] Management Goal:Pain Completed [facility] Visit Type -BUDGET ANALYST Home Visit Discipline -Home Health Aide ProblemStart DateStatusGoalsInterventions HH Aide Disciplines: Home Health Aide 04/01/2023 Active 1 goal linked to scheduled/documented intervention 9 goal interventions scheduled/documented in this visit GoalAssociated ProblemOutcomeGoal Met?Visit Notes Hygiene/Safety HH Aide No InterventionAssociated Problem/GoalStatusVarianceVisit Notes Patient Pain Reporting Problem: Aide Goal:Hygiene/Safety Completed none reported Hair Care Problem: Aide Goal:Hygiene/Safety Completed Dressing Problem:HH Aide Goal:Hygiene/Safety Completed Foot Care Problem:HH Aide Goal:Hygiene/Safety Completed Shampoo Hair Problem:HH Aide Goal:Hygiene/Safety Completed Inspect Skin Problem:HH Aide Goal:Hygiene/Safety Completed Assist With Ambulation Problem:HH Aide Goal:Hygiene/Safety Completed Apply Lotion Problem:HH Aide Goal:Hygiene/Safety Completed Shower Problem:HH Aide Goal:Hygiene/Safety Completed [facility] Visit Type -BUDGET ANALYST Home Visit Discipline -Home Health Aide ProblemStart DateStatusGoalsInterventions HH Aide Disciplines: Home Health Aide 04/01/2023 Active 1 goal linked to scheduled/documented intervention 9 goal interventions scheduled/documented in this visit GoalAssociated ProblemOutcomeGoal Met?Visit Notes Hygiene/Safety HH Aide No InterventionAssociated Problem/GoalStatusVarianceVisit Notes Patient Pain Reporting Problem:HH Aide Goal:Hygiene/Safety Completed none reported Hair Care Problem:HH Aide Goal:Hygiene/Safety Completed Dressing Problem:HH Aide Goal:Hygiene/Safety Completed Foot Care Problem:HH Aide Goal:Hygiene/Safety Completed Shampoo Hair Problem:HH Aide Goal:Hygiene/Safety Completed Inspect Skin Problem:HH Aide Goal:Hygiene/Safety Completed Assist With Ambulation Problem:HH Aide Goal:Hygiene/Safety Completed Apply Lotion Problem:HH Aide Goal:Hygiene/Safety Completed Shower Problem:HH Aide Goal:Hygiene/Safety Completed documented in this [facility]* Visit Type -HULL AND DECK REMOVER Routine Visit Discipline -Physical Therapy ProblemStart DateStatusGoalsInterventions Assess and Instruct Home Visit Disciplines: Physical Therapy 04/08/2023 Active 1 goal linked to scheduled/documented intervention 2 goal interventions scheduled/documented in this visit Home Exercise Program Disciplines: Physical Therapy 04/08/2023 Active 1 goal linked to scheduled/documented intervention 1 goal intervention scheduled/documented in this visit Mobility Disciplines: Physical Therapy 04/08/2023 Active 1 goal linked to scheduled/documented intervention 1 goal intervention scheduled/documented in this visit GoalAssociated ProblemOutcomeGoal Met?Visit Notes Home Care Plan Assess and Instruct Home Visit No Home Exercise Program Home Exercise Program No Mobility Mobility No InterventionAssociated Problem/GoalStatusVarianceVisit Notes Falls Problem:Assess and Instruct Home Visit [...] prevention as well. [facility] Visit Type -SN HH Routine Visit Discipline -Halfway ProblemStart DateStatusGoalsInterventions Psychosocial Health Disciplines: Halfway 04/01/2023 Active 1 goal linked to scheduled/documented intervention 1 goal intervention scheduled/documented in this visit Neurological Disciplines: Halfway 04/01/2023 Active 1 goal linked to scheduled/documented intervention 1 goal intervention scheduled/documented in this visit Respiratory Disciplines: Halfway 04/01/2023 Active 1 goal linked to scheduled/documented intervention 1 goal intervention scheduled/documented in this visit Cardiac Disciplines: Halfway 04/01/2023 Active 1 goal linked to scheduled/documented intervention 1 goal intervention scheduled/documented in this visit Diabetes Disciplines: Halfway 04/01/2023 Active 1 goal linked to scheduled/documented intervention 1 goal intervention scheduled/documented in this visit Assess and Instruct Home Visit Disciplines: Halfway 04/01/2023 Active 1 goal linked to scheduled/documented intervention 4 goal interventions scheduled/documented in this visit Medication Management Disciplines: Halfway 04/01/2023 Active 1 goal linked to scheduled/documented intervention 1 goal intervention scheduled/documented in this visit Pain Management Disciplines: Halfway 04/01/2023 Active 1 goal linked to scheduled/documented intervention 1 goal intervention scheduled/documented in this visit Assess POC Synopsis Disciplines: Halfway 04/01/2023 Active 2 goals linked to scheduled/documented interventions 2 goal interventions scheduled/documented in this visit Wound Care and/or Skin Problems Disciplines: Halfway 04/15/2023 Active 1 goal linked to scheduled/documented intervention 1 goal intervention scheduled/documented in this visit GoalAssociated ProblemOutcomeGoal Met?Visit Notes Depression Psychosocial Health No Seizures Neurological No Generalized Shortness of Breath Respiratory No Cardiac Function Cardiac No Diabetes Diabetes No Home Care Plan Assess and Instruct Home Visit No Medications Medication Management No Pain Pain Management No Depression Assessment Assess POC Synopsis No Diabetic Foot Education Assess POC Synopsis No Wound/Incision Wound Care and/or Skin Problems No InterventionAssociated Problem/GoalStatusVarianceVisit Notes Instruct Depression Problem:Psychosocial Health Goal:Depression Completed [...] getting set up in dose packs from [facility]. Assess Pain Characteristics and Current Pain Regimen and Instruct Methods of Pain Relief Problem:Pain Management Goal:Pain Completed Assess and Address Symptoms of Depression Problem:Assess POC Synopsis Goal:Depression Assessment Completed Assess Feet and Provide Diabetic Foot Education Problem:Assess POC Synopsis Goal:Diabetic Foot Education Completed Wound/Incision Problem:Wound Care and/or Skin Problems Goal:Wound/Incision Scheduled [facility] Visit Type -BUDGET ANALYST Missed Visit Discipline -Home Health Aide ProblemStart DateStatusGoalsInterventions HH Aide Disciplines: Home Health Aide 04/01/2023 Active 1 goal linked to scheduled/documented intervention 9 goal interventions scheduled/documented in this visit GoalAssociated ProblemOutcomeGoal Met?Visit Notes Hygiene/Safety HH Aide No InterventionAssociated Problem/GoalStatusVarianceVisit Notes Patient Pain Reporting Problem:HH Aide Goal:Hygiene/Safety Scheduled Hair Care Problem:HH Aide Goal:Hygiene/Safety Scheduled Dressing Problem:HH Aide Goal:Hygiene/Safety Scheduled Foot Care Problem:HH Aide Goal:Hygiene/Safety Scheduled Shampoo Hair Problem:HH Aide Goal:Hygiene/Safety Scheduled Inspect Skin Problem:HH Aide Goal:Hygiene/Safety Scheduled Assist With Ambulation Problem:HH Aide Goal:Hygiene/Safety Scheduled Apply Lotion Problem:HH Aide Goal:Hygiene/Safety Scheduled Shower Problem:HH Aide Goal:Hygiene/Safety Scheduled [facility] Visit Type -SN Missed Visit Discipline -Halfway ProblemStart DateStatusGoalsInterventions Assess and Instruct Home Visit Disciplines: Halfway 04/01/2023 Active 1 goal linked to scheduled/documented intervention 3 goal interventions scheduled/documented in this visit Medication Management Disciplines: Halfway 04/01/2023 Active 1 goal linked to scheduled/documented intervention 1 goal intervention scheduled/documented in this visit Pain Management Disciplines: Halfway 04/01/2023 Active 1 goal linked to scheduled/documented intervention 1 goal intervention scheduled/documented in this visit Wound Care and/or Skin Problems Disciplines: Halfway 04/15/2023 Active 1 goal linked to scheduled/documented intervention 1 goal intervention scheduled/documented in this visit GoalAssociated ProblemOutcomeGoal Met?Visit Notes Home Care Plan Assess and Instruct Home Visit No Medications Medication Management No Pain Pain Management No Wound/Incision Wound Care and/or Skin Problems No InterventionAssociated Problem/GoalStatusVarianceVisit Notes Falls Problem:Assess and Instruct Home Visit [...] Problems Goal:Wound/Incision Scheduled [facility] Visit Type -HULL AND DECK REMOVER Missed Visit Discipline -Physical Therapy ProblemStart DateStatusGoalsInterventions Assess and Instruct Home Visit Disciplines: Physical Therapy 04/08/2023 Active 1 goal linked to scheduled/documented intervention 2 goal interventions scheduled/documented in this visit GoalAssociated ProblemOutcomeGoal Met?Visit Notes Home Care Plan Assess and Instruct Home Visit No InterventionAssociated Problem/GoalStatusVarianceVisit Notes Falls Problem:Assess and Instruct Home Visit Goal:Home Care Plan Scheduled Safety Problem:Assess and Instruct Home Visit Goal:Home Care Plan Scheduled documented in this encounter [facility]* Visit Type -PT Non-OASIS/Discipl Discharge Discipline -Physical Therapy ProblemStart DateStatusGoalsInterventions Assess and Instruct Home Visit Disciplines: Physical Therapy 04/08/2023 Resolved on 04/29/2023 1 goal linked to scheduled/documented intervention 2 goal interventions scheduled/documented in this visit GoalAssociated ProblemOutcomeGoal Met?Visit Notes Home Care Plan Assess and Instruct Home Visit No InterventionAssociated Problem/GoalStatusVarianceVisit Notes Falls Problem:Assess and Instruct Home Visit Goal:Home Care Plan Scheduled Safety Problem:Assess and Instruct Home Visit Goal:Home Care Plan Scheduled documented in this encounter [facility]* Visit Type -SN HH OASIS Discharge Discipline -Halfway ProblemStart DateStatusGoalsInterventions Assess and Instruct Home Visit Disciplines: Halfway 04/01/2023 Active 1 goal linked to scheduled/documented intervention 3 goal interventions scheduled/documented in this visit Medication Management Disciplines: Halfway 04/01/2023 Active 1 goal linked to scheduled/documented intervention 1 goal intervention scheduled/documented in this visit Pain Management Disciplines: Halfway 04/01/2023 Active 1 goal linked to scheduled/documented intervention 1 goal intervention scheduled/documented in this visit Wound Care and/or Skin Problems Disciplines: Halfway 04/15/2023 Active 1 goal linked to scheduled/documented intervention 1 goal intervention scheduled/documented in this visit GoalAssociated ProblemOutcomeGoal Met?Visit Notes Home Care Plan Assess and Instruct Home Visit No Medications Medication Management No Pain Pain Management No Wound/Incision Wound Care and/or Skin Problems No InterventionAssociated Problem/GoalStatusVarianceVisit Notes Falls Problem:Assess and Instruct Home Visit [...] Problems Goal:Wound/Incision Scheduled documented in this encounter [facility] Plan of care note* Visit Type -HULL AND DECK REMOVER Missed Visit Discipline -Physical Therapy ProblemStart DateStatusGoalsInterventions Assess and Instruct Home Visit Disciplines: Physical Therapy 04/08/2023 Active 1 goal linked to scheduled/documented intervention 2 goal interventions scheduled/documented in this visit GoalAssociated ProblemOutcomeGoal Met?Visit Notes Home Care Plan Assess and Instruct Home Visit No InterventionAssociated Problem/GoalStatusVarianceVisit Notes Falls Problem:Assess and Instruct Home Visit Goal:Home Care Plan Scheduled Safety Problem:Assess and Instruct Home Visit Goal:Home Care Plan Scheduled [facility] Clinical update including pain/vitals/ no meds in home to PCPDr.Shuh on office phone.documented [facility]* Clinical update including pain/vitals/ no meds in home to PCPDr.Shuh on office phone.[facility]* Clinical update including pain/vitals/ no meds in home to PCPDr.Shuh on office phone.documented [facility]* Clinical update including pain/vitals/ no meds in home to PCPDr.Shuh on office phone.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 Pt says has [...] PT 1w1, 2w3 for gait/balance/endurance/transfer training, therex, HEP.[facility] Homebound Status Criteria 1: Assistive Device(s): None Needs assistance of at least 1 to leave home Criteria 2: Patient confined to home due to unsteady gait/poor balance Type of Home: split level / walkoutdocumented in this encounter [facility]* [facility] Clinical Summary Patient s goals for HomeCare: Be stronger [...] confined to home due to unsteady gait/poor balancedocumented in this encounter [facility]* Pt declined further care to RN. RN completed OASIS D/C. Home PT non-billable discharge completed.[facility] No data available for this section [facility] CenterProgress note Author Jeana Martini [facility] August 20, 2022 9:48amNote Date/TimeMarch 2022 9:48amDaniel [place]ille [id number] Hospitalist Progress Note Signed Patient: Addie Jean Baptiste MR#: [id number] : 1975 Acct:[id number] Age/Sex: 47 / F Adm Date: 3 Loc: Room: [address] [place] [address] Type: ADM INOo Attending Dr: Jeana Martini [...] place, time and person, morbidly obese HEENT: [place] conjunctiva and NL buccal mucosa Neck: Supple, [...] or edema. Erythema, induration and tenderness involving theleft great toe. Stage II ulceration involving the [...] <Electronically signed by Jeana Martini MD> 08/20/2248 [facility] Work Phone: Progress note Author Jeana [facility]ifer [facility] August 21, 2022 10:10amNote Date/TimeMarch 2022 10:10[place] [address] Hospitalist Progress Note Signed Patient: Addie Jean Baptiste MR#: [id number] : 1975 Acct:[id number] Age/Sex: 47 / F Adm Date: 3 Loc: 3T Room: [address] [place] [address] Type: ADM IN Attending Dr: Jeana Martini [...] place, time and person, morbidly obese HEENT: [place] conjunctiva and NL buccal mucosa Neck: Supple, [...] signed by Jeana Martini MD> 08/21/22 1010 [facility] Work Phone: Progress note Author Lawrence Kim [facility] August 21, 2022 11:22amNote Date/TimeMarch 2022 11:22[place] [address] Infect. Disease Progress Note Signed Patient: Addie Jean Baptiste MR#: [id number] : 1975 Acct:[id number] Age/Sex: 47 / F Adm Date: 3 Loc: Room: [address] [place] [address] Type: ADM IN Attending Dr: Jeana Martini MD Copies to: ~ Date of Service: 08/21/2022 Subjective Interval history: Patient denies any new complaints. Incision and drainage performed at bedside yesterday. No culturesent. Remains on Unasyn Exam Physical Exam Vital [...] 5 Mg Tablet) 5 mg PO DAILY [facility] Stop: 08/20/23 09:39 Last Admin: 08/21/22 09:00 [...] (50,000 Units) Capsule) 1,250 mcg PO Q7D [facility] Stop: 08/20/23 09:44 Last Admin: 08/20/22 14:44 Dose: Not Given Furosemide (Furosemide 20 Mg Tablet) 20 mg PO DAILY.8A [facility] Stop: 08/20/23 07:59 Last Admin: 08/21/22 09:00 [...] Units/3 Ml Insuln.Pen) 0 units SUBCUT TID.WM.[facility]; Protocol Stop: 08/20/23 11:59 Last Admin: 08/21/22 09:03 Dose: Not Given Levetiracetam (Levetiracetam 250 Mg Tablet) 750 mg PO BID [facility] Stop: 08/20/23 08:59 Last Admin: 08/21/22 08:59 Dose: 750 mg Levothyroxine Sodium (Levothyroxine 75 Mcg Tablet) 75 mcg PO DAILY@0630 [facility] Stop: 08/20/23 06:29 Last Admin: 08/21/22 06:09 Dose: 75 mcg Lisinopril (Lisinopril 40 Mg Tablet) 40 mg PO DAILY [facility] Stop: 08/20/23 08:59 Last Admin: 08/21/22 09:01 Dose: 40 mg Metformin HCl (Metformin 500 Mg Tablet) 1,000 mg PO BID.WITH.MEALS [facility] Stop: 08/20/23 07:59 Last Admin: 08/21/22 09:00 Dose: 1,000 mg Pantoprazole Sodium (Pantoprazole 40 Mg Tablet.Dr) 40 mg PO DAILY [facility] Stop: 08/21/23 08:59 Last Admin: 08/21/22 09:01 Dose: 40 mg Pregabalin (Pregabalin 150 Mg Capsule) 150 mg PO [facility] Stop: 02/16/23 03:44 Last Admin: 08/20/22 21:12 Dose: 150 mg Quetiapine Fumarate (Quetiapine Fumarate 200 Mg Tablet) 800 mg PO [facility] Stop: 08/20/23 03:59 Last Admin: 08/20/22 21:12 Dose: 800 mg Saccharomyces Boulardii (Saccharomyces Boulardii 250 Mg Capsule) 250 mg PO BID.WITH.MEALS [facility] Stop: 08/20/23 07:59 Last Admin: 08/21/22 08:59 [...] signed by MD Lawrence Kim> 08/21/22 1122 [facility] Work Phone: Progress note Author Jeana Martini [facility] August 22, 2022 9:54amNote Date/TimeMarch 2022 9:55[place] [address] Hospitalist Progress Note Signed Patient: Addie Jean Baptiste MR#: [id number] : 1975 Acct:[id number] Age/Sex: 47 / F Adm Date: 3 Loc: Room: [address] [place] [address] Type: ADM IN Attending Dr: Jeana Martini [...] place, time and person, morbidly obese HEENT: [place] conjunctiva and NL buccal mucosa Neck: Supple, [...] Insuln.Pen SUBCUT 08/20/23 11:59 Not Given TID.WM.[facility] Protocol Levetiracetam 750 mg 08/20/22 09:00 08/22/22 [...] By: <Electronically signed by Jeana Martini MD> 08/22/22953 [facility] Work Phone: Progress note Author Shameka Romero [facility] August 22, 2022 9:56amNote Date/TimeMarch 2022 9:56[place] [address] Vascular Surgery Progress Note Signed Patient: Addie Jean Baptiste MR#: [id number] : 1975 Acct:[id number] Age/Sex: 47 / F Adm Date: 3 Loc: Room: [address] [place] [address] Type: ADM IN Attending Dr: Jeana Martini [...] Laboratory Results - last 24 hr 08/21/22 08/21/2208/21/23 11:11 16:25 21:19 PHA Creatinine Clear Sodium [...] foot. We did bring the patient down [facility] special suite and placed her [facility] angiography table. She is extremely anxious and [...] signed by Shameka Romero MD> 08/22/22 0956 [facility] Work Phone: Reason for referral (narrative)* Consultation (Routine) - New RequestSpecialtyDiagnoses / ProceduresReferred By Contact Referred To [facility] Sports Diagnoses Pain of left lower leg Tonia Ridley APRN-CNP [address] [place] [phone] Referral IDStatusMikaelaLawrence DateExpiration DateVisits RequestedVisits [id number] Request/ [facility] CenterReason for referral (narrative)No reason for referral information availablePromedica Flower [facility]tr Work Phone: Reason for visit Narrativewondering about R/S for procedureHighland Park Tripc[place] Other Reason for visit Narrative* Auth/CertSpecialty Diagnoses / ProceduresReferred By ContactReferred To Contact Diagnoses Sudden vision loss Vanessa Vargas MD [address] [facility] [address] [place] [address] Phone: tel: fax: Referral IDStatusReasonLawrence DateExpiration DateVisits RequestedVisits [id number] [facility] Assessments DiagnosisAcute exacerbation of chronic low back pain - PrimaryDiagnosis Diabetic infection of left foot (HCC)- Primary [...] megan father Coronary artery disease Unknown Diabetes mellitusUnknownHypertensionUnknownNot SpecifiedSeizureUnknownbrother Blood disorderUnknown Relationship Condition Age at Onset Recorded Date/T megan father Type 2 diabetes mellitus Unknown Heart diseaseUnknownmotherRheumatoid arthritisUnknown Relationship Condition Age at Onset Recorded Date/T megan father Coronary artery disease Unknown Diabetes mellitusUnknownHypertensionUnknownmotherSeizureUnknownbrotherBlood disorderUnknownfatherDiabetes mellitusUnknownHeart diseaseUnknowngrandparent DeceasedUnknownmotherFamily history of thyroid diseaseUnknown Advance Directives TypeDate RecordedPatient RepresentativeExplanationAdvance Directives and Living Will06/03/2020 2:34 PMCode StatusDate ActivatedDate InactivatedCommentsFull Code 06/04/2020 1:01 PM06/05/2020 9:32 PMFull Code - Unverified06/03/2020 4:28 PM 06/04/2020 1:01 PMFull Code12/03/2014 7:14 PM12/09/2014 3:53 PMFull Code11/30/2014 6:45 PM12/03/2014 7:14 PMCode StatusDate ActivatedDate InactivatedCommentsFull Code05/25/2015 10:03 PM05/28/2015 9:21 PM Advance Directive Response Recorded Date/ Time Advance Directives No February 23, 2017 2:30pm Code StatusDate ActivatedDate InactivatedCommentsFull Code01/12/2023 8:16 PM 01/14/2023 12:34 PMCode StatusDate ActivatedDate InactivatedCommentsFull Code 06/04/2020 1:01 PM06/05/2020 9:32 PMFull Code - Unverified06/03/2020 4:28 PM 06/04/2020 1:01 PMFull Code12/03/2014 7:14 PM12/09/2014 3:53 PMFull Code11/30/2014 6:45 PM12/03/2014 7:14 PMCode StatusDate ActivatedDate InactivatedCommentsFull Code02/18/2023 12:28 AM02/20/2023 4:55 PMCode StatusDate ActivatedDate Inactivated CommentsFull Code01/12/2023 8:16 PM01/14/2023 12:34 PMFull Code06/04/2020 1:01 PM 06/05/2020 9:32 PMFull Code - Unverified06/03/2020 4:28 PM06/04/2020 1:01 PMFull Code12/03/2014 7:14 PM12/09/2014 3:53 PMCode StatusDate ActivatedDate Inactivated CommentsFull Code03/29/2023 1:43 PM03/30/2023 5:31 PMCode StatusDate ActivatedDate InactivatedCommentsFull Code02/18/2023 12:28 AM02/20/2023 4:55 PMFull Code 01/12/2023 8:16 PM01/14/2023 12:34 PMFull Code06/04/2020 1:01 PM06/05/2020 9:32 PM Full Code - Unverified06/03/2020 4:28 PM06/04/2020 1:01 PMCode StatusDate ActivatedDate InactivatedCommentsFull Code04/01/2023 3:47 PMCode Status reflects patient's informed choice.Code StatusDate ActivatedDate InactivatedCommentsFull Code03/29/2023 1:43 PM03/30/2023 5:31 PMFull Code02/18/2023 12:28 AM02/20/2023 4:55 PMFull Code01/12/2023 8:16 PM01/14/2023 12:34 PMFull Code06/04/2020 1:01 PM 06/05/2020 9:32 PMCode StatusDate ActivatedDate InactivatedCommentsFull Code 04/01/2023 3:47 PMCode Status reflects patient's informed choice.Code StatusDate ActivatedDate InactivatedCommentsFull Code03/29/2023 1:43 PM03/30/2023 5:31 PMFull Code02/18/2023 12:28 AM02/20/2023 4:55 PMFull Code01/12/2023 8:16 PM01/14/2023 12:34 PMFull Code06/04/2020 1:01 PM06/05/2020 9:32 PMCode StatusDate ActivatedDate InactivatedCommentsFull Code04/01/2023 3:47 PM04/26/2023 5:18 PMCode Status reflects patient's informed choice.Code StatusDate ActivatedDate Inactivated CommentsFull Code05/10/2023 4:09 PMCode StatusDate ActivatedDate Inactivated CommentsFull Code04/01/2023 3:47 PM04/26/2023 5:18 PMCode Status reflects patient's informed choice.Full Code03/29/2023 1:43 PM03/30/2023 5:31 PMFull Code 02/18/2023 12:28 AM02/20/2023 4:55 PMFull Code01/12/2023 8:16 PM01/14/2023 12:34 PM Code StatusDate ActivatedDate InactivatedCommentsFull Code05/10/2023 4:09 PM 05/13/2023 6:15 PMCode StatusDate ActivatedDate InactivatedCommentsFull Code 04/01/2023 3:47 PM04/26/2023 5:18 PMCode Status reflects patient's informed choice.Full Code03/29/2023 1:43 PM03/30/2023 5:31 PMFull Code02/18/2023 12:28 AM 02/20/2023 4:55 PMFull Code01/12/2023 8:16 PM01/14/2023 12:34 PMCode StatusDate ActivatedDate InactivatedCommentsFull Code05/10/2023 4:09 PM05/13/2023 6:15 PM TypeDate RecordedPatient RepresentativeExplanationAdvance Directives and Living Will07/08/2023 8:24 PMTypeDate RecordedPatient RepresentativeExplanationAdvance Directives and Living Will07/08/2023 8:24 PMDate ActivatedDate Inactivated Ukidzzyf56/17/2023 4:09 PM05/13/2023 6:15 PMDate ActivatedDate Inactivated Vxzskxeu75/8/2023 3:47 PM04/26/2023 5:18 PMCode Status reflects patient's informed choice.Date ActivatedDate EsrdlulcbwoOdzflgrh01/5/2023 1:43 PM03/30/2023 5:31 PMDate ActivatedDate InactivatedComments02/18/2023 12:28 AM02/20/2023 4:55 PM Date ActivatedDate InactivatedComments01/12/2023 8:16 PM01/14/2023 12:34 PMCode StatusDate ActivatedDate InactivatedCommentsFull Code03/30/2017 9:46 AM04/01/2017 3:40 PMDate ActivatedDate YfsmpobngapKcmdcaky55/17/2023 4:09 PM05/13/2023 6:15 PMDate ActivatedDate YushngejftrJgctbsij59/8/2023 3:47 PM04/26/2023 5:18 PMCode Status reflects patient's informed choice.Date ActivatedDate InactivatedComments 03/29/2023 1:43 PM03/30/2023 5:31 PMDate ActivatedDate InactivatedComments 02/18/2023 12:28 AM02/20/2023 4:55 PMDate ActivatedDate InactivatedComments 01/12/2023 8:16 PM01/14/2023 12:34 PMDate ActivatedDate InactivatedComments 03/30/2017 9:46 AM04/01/2017 3:40 PMTypeDate 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 ExplanationAdvance Directives and Living Will11/09/2023 8:44 PMTypeDate Recorded Patient RepresentativeExplanationAdvance Directives and Living Will11/09/2023 8:44 PMDate ActivatedDate InactivatedComments01/12/2024 5:17 PMDate ActivatedDate ObjdgybtfslJqdovcmz55/17/2023 4:09 PM05/13/2023 6:15 PMDate ActivatedDate JepniufkjbiAyvsgwla65/8/2023 3:47 PM04/26/2023 5:18 PMCode Status reflects patient's informed choice.Date ActivatedDate AxnkuvhxuzgMafwfvxd93/5/2023 1:43 PM03/30/2023 5:31 PMDate ActivatedDate InactivatedComments02/18/2023 12:28 AM 02/20/2023 4:55 PMDate ActivatedDate InactivatedComments01/12/2024 5:17 PM 01/18/2024 4:48 PMDate ActivatedDate OsevroelfewAnjvcmrd06/17/2023 4:09 PM 05/13/2023 6:15 PMDate ActivatedDate WcphwrhralzGhitpdds15/8/2023 3:47 PM 04/26/2023 5:18 PMCode Status reflects patient's informed choice.Date Activated Date GedqffkgvbvNdfcojhg08/5/2023 1:43 PM03/30/2023 5:31 PMDate ActivatedDate InactivatedComments02/18/2023 12:28 AM02/20/2023 4:55 PMDate ActivatedDate InactivatedComments01/12/2024 5:17 PM01/18/2024 4:48 PMDate ActivatedDate XopkyrwjoxuEmoingoz91/1/2024 12:34 AMDate ActivatedDate InactivatedComments 01/12/2024 5:17 PM01/18/2024 4:48 PMDate ActivatedDate InactivatedComments 05/10/2023 4:09 PM05/13/2023 6:15 PMDate ActivatedDate InactivatedComments 04/01/2023 3:47 PM04/26/2023 5:18 PMCode Status reflects patient's informed choice.Date ActivatedDate NpzwteuchbjKbswqkjt99/5/2023 1:43 PM03/30/2023 5:31 PM Date ActivatedDate ZidhuxrtdevFrrgabvc20/1/2024 12:34 AM04/04/2024 7:43 PMDate ActivatedDate UaqdkgjpgknVrqwmiyt03/4/2024 1:09 AMDate ActivatedDate Inactivated Ycvkuyoq26/3/2024 11:46 PM04/27/2024 1:09 AMDate ActivatedDate Inactivated Qthdrbyi77/1/2024 12:34 AM04/04/2024 7:43 PMDate ActivatedDate Inactivated Comments01/12/2024 5:17 PM01/18/2024 4:48 PMDate ActivatedDate InactivatedComments 05/10/2023 4:09 PM05/13/2023 6:15 PMDate ActivatedDate InactivatedComments 04/27/2024 1:09 AM04/29/2024 5:58 PMDate ActivatedDate InactivatedComments 04/27/2024 1:09 AM04/29/2024 5:58 PMDate ActivatedDate InactivatedComments 04/26/2024 11:46 PM04/27/2024 1:09 AMDate ActivatedDate InactivatedComments 03/25/2024 12:34 AM04/04/2024 7:43 PMDate ActivatedDate InactivatedComments 01/12/2024 5:17 PM01/18/2024 4:48 PMDate ActivatedDate InactivatedComments 05/10/2023 4:09 PM05/13/2023 6:15 PM Advance Directive Response Recorded Date/ Time Living Will No July 05 12:07pm Health Care POA No July 05 12:07pm DNR CC/CCA Form Complete No 2014 12:07pm Organ Donor No July 05, 2 015 12:07pm Date ActivatedDate InactivatedComments12/03/2024 7:40 AM12/05/2024 7:18 PMDate ActivatedDate YptrnppkauzJgstjdpe51/13/2022 2:06 AM03/11/2022 9:21 PMDate ActivatedDate InactivatedComments12/03/2024 7:40 AM12/05/2024 7:18 PMDate ActivatedDate ApqvvleezduCnraniqy90/13/2022 2:06 AM03/11/2022 9:21 PM Advance Directive Response Recorded Date/ Time Advance Directives No February 23, 2017 1:30pm Hospital Course Note Send Summary: Discharge Summ margoth Providers: Provider RoleProvider Name Rosalia Mendez Samuel E AttendingQuan, Kara Note Recipients: Rosalia Noble MD - [phone] [preferred] Italo Headley MD - [phone] [] Discharge: Summary: Admission Date: .06-Apr-2019 06:38:00 Discharge Date: 07-Apr-2019 Attending Physician at Discharge: Rosalia Noble Admission Reason: sustained ventricular tachycardia Final Discharge Diagnoses: sustained ventricular tachycardia dual chamber ICD Procedures: electrophysiology studies and dual chamber PPM upgrade to dual chamber ICD Condition at Discharge: Satisfactory Disposition at Discharge: .Home Vital Signs: T PRBPSpO2 [id number]/8395% Date/Time04/07 8: 8: 8: 8: 8:00 Range(36.2C [...] Log into your personal health record on [email or web address]) and enter A739 in the Education box to learn more about Diabetes Foot Health: Care Instructions. Current as of: January 23, 2020 Content Version: 12.7 [employer]. Care instructions adapted under license by your healthcare professional. If you have questions about a medical condition or this instruction, always ask your healthcare professional. [employer] disclaims any warranty or liability for your use of this information. documented in this encounter History of Present Illness * Lisa Hendrickson, LUPE - 06/05/2020 11:00 AM EST Consultation Note [...] so she went to Emergency Department in [place], subsequently came to [facility] and was admitted for cellulitis of [...] pick it up tomorrow at pharmacy - [facility] in [place] . FLUoxetine (PROZAC) 40 MG capsule Take [...] file Gets together: Not on file Attends tenriism service: Not on file Active member of [...] with #316 blade. Nail border removed with upper cutter out and hemostats under digital anesthesia. All necrotic [...] If there are any questions, please call. [phone]. * Nikko Wasserman, PT - 06/04/2020 4:00 [...] level Prior Level of Function Level of [place]: Independent with ADLs and functional transfers, Independent [...] 10.2-worsened since 06/28/2019. She reports that her laundry attendant is Dr Resendez-office number [phone]. Spoke with office staff this am and [...] pt and pt has notbeen seen by laundry attendant in almost 1 year. MD did refill [...] Infusions: sodium chloride 0.9 % Stopped (06/03/20 1559) sodium chloride 0.9 % 100 mL/hr (06/04/20 [...] n left foot Cellulitis of left foot [id number] Diabetic foot infection Hypertension Hypokalemia Hypomagnesemia Hypophosphatemia Onychocryptosis Peripheral vascular disease Toe infection Toe pain, left Diabetes Nicotine dependence Chief Complaint L foot pain PAD w/left great toe ulcerReason for VisitAbscess of toenail on left foot Cellulitis of left foot [id number] Diabetic foot infection Hypertension Hypokalemia Hypomagnesemia Hypophosphatemia [...] adult February 20 9:44am Essential hypertension February 20 9:44am Mixed hyperlipidemia February 20 9:44am Morbid obesity due to excess calories Se ptember 2024 9:44am Nicotine use disorder February 20 9:44am Noncompliance with medications February 20, 2025 9:44am Peripheral vascular disease February 202024 9:44am Type 2 diabetes mellitus wit h circulatory disorder, with long-term current February 20, 2025 9:44am Bipolar 1 disorder February 20, 2025 9:44am Chief Complaint Admit Date est new patient February 20, 2025 9:44am Amb Documentation March 16, 2025 1 :12pm 1 month follow up April 04, 2025 10:44am Reason for Visit Admit Date BMI 50.0-59.9, adult February 20 9:44am Breast cancer screening by mammogram Sep tember 2024 9:44am Essential hypertension February 20 9:44am Mixed hyperlipidemia February 20 9:44am Morbid [...] with long-term current April 04, 2025 10:44am Reason for Referral SpecialtyDiagnoses / ProceduresReferred By ContactReferred To ContactNeurology Diagnoses Chronic nonintractable headache, unspecified headache type Stephany Pelayo PA-C [address] [address] Virgen Campos MD [address] [address] Referral IDStatusReasonStart DateExpiration DateVisits RequestedVisits [id number]/19/20249/066441GfgtnkcrcHeizoxbjk / Procedures Referred By ContactReferred To Contact Diagnoses Chronic obstructive pulmonary disease, unspecified COPD type ([facility]) Stephany Pelayo PA-C [address] [address] Referral IDStatusReasonStart DateExpiration DateVisits RequestedVisits [id number]eo / ProceduresReferred By Contact Referred To ContactRehabilitation Diagnoses Chronic pain syndrome DDD (degenerative disc disease), lumbar Lumbar radiculopathy Jim Velez DO [address] [place] [address] Referral IDStatusReasonStart DateExpiration DateVisits RequestedVisits [id number]/16/20247/225090EmzguosdvKgjgxjpdd / Procedures Referred By ContactReferred To Contact Diagnoses Type 2 diabetes mellitus with diabetic polyneuropathy, with long-term current use of insulin (HCC) Sahara Sanchez MD [address] [place] [address] Referral IDStatusReasonStart DateExpiration DateVisits RequestedVisits [id number] Gfopqz47OxrnuvcutJzjbkiuhm / ProceduresReferred By ContactReferred To Contact Diagnoses Lacunar stroke (HCC) Procedures Thrombotic Risk Screen Virgen Campos MD [address] [address] Referral IDStatusReasonStart DateExpiration DateVisits RequestedVisits [id number] Review/[id number] / ProceduresReferred By ContactReferred To ContactOtolaryngology Diagnoses Hearing loss of left ear, unspecified hearing loss type Virgen Campos MD [address] [address] [address] [address] Referral IDStatusReasonLawrence DateExpiration DateVisits RequestedVisits [id number] Specialty Services Required/Patient's Best Interest /[id number] / ProceduresReferred By ContactReferred To ContactNeurology Diagnoses Seizure (HCC) Procedures EEG (Standard) Virgen Campos MD [address] [address] Referral IDStatusReasonLawrence DateExpiration DateVisits RequestedVisits [id number] Review/[id number] / ProceduresReferred By ContactReferred To ContactPulmonary Disease Diagnoses Subacute cough Family history of pulmonary fibrosis Stephany Pelayo PA-C [address] [place] [address] Neida Dominguez MD [address] [place] [address] Referral IDStatusReasonStart DateExpiration DateVisits RequestedVisits [id number] Patient Preference /[id number] / ProceduresReferred By ContactReferred To ContactRadiology Diagnoses RUQ abdominal pain Procedures US Abdomen Complete Stephany Pelayo PA-C [facility] [address] [address] Referral IDStatusReasonStart DateExpiration DateVisits RequestedVisits [id number]/21/20245/653969YfklxfwvuMyfakrelm / Procedures Referred By ContactReferred To ContactPulmonology Diagnoses Subacute cough Family history of pulmonary fibrosis Stephany Pelayo PA-C [address] [place] [address] Merrick Almanza MD [address] [place] [address] Referral IDStatusReasonStart DateExpiration DateVisits RequestedVisits [id number]/21/20245/075949VwznbvcvoDshrafrdf / Procedures Referred By ContactReferred To ContactUrology Diagnoses Incontinence in female AwastyHarris MD [address] [address] [facility] [place] [address] [place] [address] Referral IDStatusReasonStart DateExpiration DateVisits RequestedVisits [id number]/29/20241/167652UovuhgvieRatnljeqg / Procedures Referred By ContactReferred To [facility] Diagnoses Diabetic ulcer of right foot associated with type 2 diabetes mellitus, unspecified part of foot, unspecified ulcer stage (HCC) Left-sided weakness Visual loss, left eye Stephany Pelayo PA-C [address] [place] [address] Referral IDStatusReasonStart DateExpiration DateVisits RequestedVisits [id number] Review Patient Preference /[id number] / ProceduresReferred By ContactReferred To [facility] Diagnoses Generalized weakness Diabetic ulcer of right foot associated with type 2 diabetes mellitus, unspecified part of foot, unspecified ulcer stage (HCC) Muscle spasms of both lower extremities Stephany Pelayo PA-C [address] [place] [address] Referral IDStatusReasonStart DateExpiration DateVisits RequestedVisits [id number] Review Specialty Services Required/Patient's Best Interest /[id number] / ProceduresReferred By ContactReferred To ContactObstetrics/Gynecology Diagnoses Screening for cervical cancer Stephany Pelayo PA-C [address] [place] [address] Timothy Banegas MD [address] [place] [address] Referral IDStatusReasonStrumsey DateExpiration DateVisits RequestedVisits [id number] Patient Preference /[id number] / ProceduresReferred By ContactReferred To ContactOphthalmology Diagnoses Type 2 diabetes mellitus with diabetic polyneuropathy, with long-term current use of insulin (HCC) Stephany Pelayo PA-C [address] [place] [address] [address] Referral IDStatusReasonStart DateExpiration DateVisits RequestedVisits [id number]/13/202312/711553EqhlnpznvDdnctzdvl / ProceduresReferred By ContactReferred To ContactRadiology Diagnoses Encounter for screening mammogram for malignant neoplasm of breast Procedures Mammography Screening [place] Bilateral Stephany Pelayo PA-C [address] [address] [facility] [address] [place] [address] Referral IDStatusReasonStart DateExpiration DateVisits RequestedVisits [id number]/13/202312/836260UtakwihqsRyqmppphr / ProceduresReferred By ContactReferred To ContactCardiology Diagnoses S/P placement of cardiac pacemaker Chronic chest pain Stephany Pelayo PA-C [address] [address] [facility] [address] [place] [address] Referral IDStatusReasonStart DateExpiration DateVisits RequestedVisits [id number]/13/202312/255181WtsnayzvrSogfzdwua / ProceduresReferred By ContactReferred To ContactEndocrinology Diagnoses Type 2 diabetes mellitus with diabetic polyneuropathy, with long-term current use of insulin (HCC) Diabetic peripheral neuropathy (HCC) Stephany Pelayo PA-C [address] [address] [facility] [address] [place] [address] Referral IDStatusReasonStart DateExpiration DateVisits RequestedVisits [id number]/13/439556UnnccbmcwSaxalutom / ProceduresReferred By ContactReferred To Contact Stephany Pelayo PA-C [address] [facility] 2 [place] [address] Referral IDStatusReasonStart DateExpiration DateVisits RequestedVisits [id number]my / ProceduresReferred By Contact Referred To ContactPsychiatry Diagnoses Bipolar 1 disorder (HCC) Insomnia, unspecified type Stephany Pelayo PA-C [address] [facility] 2 [place] [address] [facility] [address] [facility] [address] [place] [address] Referral IDStatusReasonStart DateExpiration DateVisits RequestedVisits [id number]/13/202312/12/420033PdcfnykbjThitomsvb / ProceduresReferred By ContactReferred To [facility] Diagnoses Chest pain, moderate coronary artery risk Diabetic peripheral neuropathy (HCC) Seizure disorder (HCC) Morbid obesity (HCC) Chest pain, unspecified type Seizure (HCC) Seizures (HCC) Bipolar 1 disorder (HCC) Diabetic infection of left foot (HCC) Metabolic acidosis, normal anion gap (NAG) SOLO (acute kidney injury) (HCC) Abscess of chin Pacemaker History of MRSA infection Hypertension, unspecified type Cellulitis of chin Harshad Rizzo MD [address] [place], [place] [phone] Referral IDStatusReasonStrumsey DateExpiration DateVisits RequestedVisits [id number] Patient Preference [id number] / ProceduresReferred By ContactReferred To ContactChristianacare Management Diagnoses Chest pain, moderate coronary artery risk Diabetic peripheral neuropathy (HCC) Seizure disorder (HCC) Morbid obesity (HCC) Harshad Rizzo MD [address] [phone] [facility] [address] [place] [address] Referral IDStatusMikaelaStrumsey DateExpiration DateVisits RequestedVisits [id number]/6/202311/104121CxqbtqdihItkvtjwxe / Procedures Referred By ContactReferred To ContactEndocrinology Diagnoses Type 2 diabetes mellitus with other specified complication, 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 Radiology said they would call [place]. Formatting of this note may be different from the original. ED PROVIDER NOTE [facility] EM[facility]ENCY DEPART[facility] NAME: Addie Organ AGE: 42 y.o. : 1975 VISIT DATE: 06/26/2017 CSN: [id number] PCP: Cem Mario DO Clinical Impression: SNOMED CT(R) 1. Acute exacerbation of chronic low back pain CHRONIC LOW BACK PAIN Follow-up Information 1. Cem Mario DO. Specialty: Family Medicine [address] [place] [address] Contact information for after-discharge care Follow-up information has not been specified. MDM Number of Diagnoses or Management Options Acute exacerbation of chronic low back pain: Diagnosis management comments: Patient presents to the emergency department with low back pain thatdeveloped while she was stepping into her vehicle after dinner. She has no focal neuro deficits on exam. X-ray of the thoracic spine shows no acute bony abnormalities. X-ray of the lumbar spine showsno fracture or acute abnormality. Patient already has an MRI scheduled at [facility] for her back. She does have chronic back problems. At this time I feel she can be discharged home with outpatient follow-up. She has no focal neuro deficits. No incontinence. Her pain is much improved after medications here. Chief Complaint Patient presents with Shortness of Breath Patient presents to the emergency department complaint of back pain. She reports that she was eating dinner at [employer] and when she was leaving she lifted her leg up to get into the van and developed a severe low back pain that radiates up into her upper back. She notes some radiation of the paindown the left leg. She reports the pain [...] INHALER Inhale 1 puff 2 (two) times aday. INSULIN LISPRO (HUMALOG) 100 UNIT/ML INJECTION Inject [...] 94 16 99 % - - 06/26/17 1910 (!) 144/99 - 96 16 99 % - - 06/26/17 1834 (!) 155/116 98.4 ?F (36.9 ?C) (!) 106 - - 5' 2 90.7 kg (200 lb) 06/26/17 1831 - - (!) 103 18 96 % - - Physical Exam Constitutional: She is oriented to person, place, and time. She appears well- developed and well-nourished. No distress. HENT: Head: Normocephalic [...] exhibits no distension. There is no tenderness. Thereis no rebound and no guarding. Musculoskeletal: Normal range of motion. She exhibits tenderness. She exhibits no edema or deformity. Tenderness to palpation to the low back, decreased ROM, pain with ROM of the legs bilaterally, goodDP pulses bilaterally Neurological: She is alert and [...] (Standard) Final Result No acute bony abnormalities. [facility]/[place] Workstation ID: [id number] XR Lumbar Spine 2-3 Views (Standard) (Results Pending) Procedures . New Prescriptions CYCLOBENZAPRINE (FLEXERIL) 10 MG TABLET Take 1 (one) tablet (10 mg total) by mouth 3 (three) times a day as needed for muscle spasms. Michi San DO, FACEP Attending Physician [facility] Emergency Department Michi San DO 06/26/17 8901 * ED Notes - Rita Bland RN - 06/26/2017 7:59 PM EST Pt back from radiology * ED Notes - Rita Bland RN - 06/26/2017 7:40 PM EST Pt to radiology * ED Notes - Rita Bland RN - 06/26/2017 7:07 PM EST Report received from JAEL Franks. Pt resting on cot, texting. Pt tearful, states that her pain is 10/10 between her shoulders and down her back. Denies needs at this time, call light within reach. * ED Notes - Tiny Childers RN - 06/26/2017 6:59 PM EST Report given to: Rita ELDER * ED Triage Notes - Tiny Childers RN - 06/26/2017 6:39 PM EST Pt states she was at [place] eating and then upon leaving went to [...] hx of herniated discs in her back. * ED Notes - Karen Masters RN - 06/26/2017 6:32 PM EST Bed: 11 Expected date: Expected time: Means of arrival: Comments: 104 in this encounter* Felicia Note - Karen Laguna RN - 06/05/2020 11:[address] hendrickson at bedside for Left great toe procedure. Triple atb ointment and gauze applied to woundand secured with coban. Pt was on her phone during procedure and tolerated it well. * Felicia Note - Karen Laguna RN - 06/04/2020 1:20 PM EST This RN was notified by pharmacist that [facility] does not carry vraylar and could the patient have her home vraylar brought to the hospital. Pt states that her boyfriend will bring that medication today. * Felicia Rothman - Karen Laguna RN - 06/04/2020 1:20 PM EST Pt gave herself 15.25units for FSBS 134 * Assessment & Plan Note - Bridger Garner MD - 06/04/2020 1:16 PM EST Associated Problem(s): Seizures (HCC) Continue home keppra, depakote * Assessment & Plan Note - Bridger Garner MD - 06/04/2020 12:45 PM EST Associated Problem(s): Bipolar 1 disorder (HCC) No evidence of denys at this time Continue home seroquel, buspar, vraylar * Assessment & Plan Note - Bridger Garner MD - 06/04/2020 12:44 PM EST Associated Problem(s): Hypertension Continue home lopressor * Assessment & Plan Note - Bridger Garner MD - 06/04/2020 12:44 PM EST Associated Problem(s): Diabetes mellitus type II, uncontrolled (HCC) A1c 10.2% On insulin pump * Assessment & Plan Note - Bridger Garner MD - 06/04/2020 12:40 PM EST Associated Problem(s): Diabetic infection of left foot [...] transitioned to Percocet x 5 day PRN * Quick Note - Karen Laguna RN - 06/04/2020 10:30 AM EST Patient's boyfriend dropped off her laptop and was given her credit card. * Plan of Care - Akhil Sanders RN - 06/03/2020 6:57 PM EST Problem: Actual or potential alteration in health [...] section and content) DATE CREATED AUTHOR 11/12/2017 [facility] DATE CREATED AUTHOR AUTHOR'S ORGANIZ ATION 11/13/2017 [facility] DATE CREATED AUTHOR AUTHOR'S ORGANIZ ATION 07/13/2018 [facility] DATE CREATED AUTHOR AUTHOR'S ORGANIZ ATION 04/12/2019 [facility] DATE CREATED AUTHOR AUTHOR'S ORGANIZ ATION 08/22/2019 [facility] DATE CREATED AUTHOR AUTHOR'S ORGANIZ ATION 12/12/2021 [facility] DATE CREATED AUTHOR AUTHOR'S ORGANIZ ATION 10/08/2022 [facility] DATE CREATED AUTHOR AUTHOR'S ORGANIZ ATION 11/05/2022 [facility] DATE CREATED AUTHOR AUTHOR'S ORGANIZ ATION 02/26/2023 [facility] DATE CREATED AUTHOR AUTHOR'S ORGANIZ ATION 04/01/2023 [facility] DATE CREATED AUTHOR AUTHOR'S ORGANIZ ATION 05/22/2023 [facility] DATE CREATED AUTHOR AUTHOR'S ORGANIZ ATION 03/26/2024 [facility] DATE CREATED AUTHOR AUTHOR'S ORGANIZ ATION 08/05/2024 [facility] DATE CREATED AUTHOR AUTHOR'S ORGANIZ ATION 09/04/2024 [facility] DATE CREATED AUTHOR AUTHOR'S ORGANIZ ATION 10/21/2024 [facility] DATE CREATED AUTHOR AUTHOR'S ORGANIZ ATION 11/13/2024 [facility] DATE CREATED AUTHOR AUTHOR'S ORGANIZ ATION 11/19/2024 [facility] DATE CREATED AUTHOR AUTHOR'S ORGANIZ ATION 12/07/2024 [facility] DATE CREATED AUTHOR AUTHOR'S ORGANIZ ATION 12/11/2024 [facility] DATE CREATED AUTHOR AUTHOR'S ORGANIZ ATION 12/31/2024 [facility] DATE CREATED AUTHOR AUTHOR'S ORGANIZ ATION 01/11/2025 [facility] DATE CREATED AUTHOR AUTHOR'S ORGANIZ ATION 01/17/2025 [facility] DATE CREATED AUTHOR AUTHOR'S ORGANIZ ATION 02/04/2025 [facility] DATE CREATED AUTHOR AUTHOR'S ORGANIZ ATION 02/05/2025 [facility] DATE CREATED AUTHOR AUTHOR'S ORGANIZ ATION 02/27/2025 [facility] DATE CREATED AUTHOR AUTHOR'S ORGANIZ ATION 02/28/2025 [facility] DATE CREATED AUTHOR AUTHOR'S ORGANIZ ATION 03/15/2025 [facility] Reason for Visit (unrecogniz ed section and content) ReasonCommentsWeaknessSpecialtyDiagnoses / ProceduresReferred By ContactReferred To Contact Referral IDStatReasonStrumsey DateExpiration DateVisits RequestedVisits [id number]qqqgXsmuuzgfGfjsy InfectionStatus ReasonSpecialtyDiagnoses / ProceduresReferred By ContactReferred To Contact Diagnoses Diabetic foot infection (HCC) Type 2 diabetes mellitus with left diabetic foot infection (HCC) Diabetic infection of left foot (HCC) ReasonCommentsSeizuresPatient reports that 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, 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ReasonCommentsChart [facility] for MRIReasonCommentsPainNEW PATIENTRT KNEE PAIN, fell 01/19/23 [facility] ERReasonCommentsChest PainSpecialtyDiagnoses / ProceduresReferred By ContactReferred To Contact Diagnoses Flank pain Chest pain, unspecified type Referral IDStatReasonStart DateExpiration DateVisits RequestedVisits [id number] PainSpecialtyDiagnoses / Procedures Referred By ContactReferred To Contact Diagnoses Chest pain Chest pain, moderate coronary artery risk Referral IDStatReasonStart DateExpiration DateVisits RequestedVisits [id number] / ProceduresReferred By ContactReferred To Contact ReasonCommentsEstablish CareGap Closure (Health Maintenance)Flu, pneumonia, diabetic eyeReasonOnset DateCommentsCare Management Kcwhtjip91/21/2023Financial ResourcesReasonOnset DateCommentsTransition Of Care05/15/2023ReasonOnset Date Commentshosp bed05/15/2023ReasonCommentsTransition Of CareReasonOnset Date CommentsMedication Qifjdc984ReasonCommentsAcute VisitSpecialtyDiagnoses / ProceduresReferred By ContactReferred To ContactPsychiatry Diagnoses Bipolar 1 disorder (HCC) Insomnia, unspecified type Stephany Pelayo PA-C [address] [facility] [address] [place] [address] [facility] [address] [facility] [address] [place] [address] Referral IDStatusReasonStart DateExpiration DateVisits RequestedVisits [id number]/13/202312/12/817114GcuzxlUiupo DateCommentsMedication Htbinu064ReasonCommentsFallLeg PainReasonOnset DateCommentsMedication Sliwlc304ReasonCommentsFollow-upReasonOnset CecfRbraujhhDZZ65/18/2024 ReasonOnset DateCommentsMedication Yfdyec114ReasonCommentsFollow-up Bipolar 1/ anxiety/ PTSD/ insomnia- Patient compliant with medications. Patient states they are nothelpful. Patients anxiety is high, not sleeping (lays awake thinking when will I how will I how will my kids feel ) Cannot shake the feeling, overwhelming thoughts of . Recently lost her mother ReasonCommentsFollow-up1 moReasonCommentsDecreased VisionSpots and/or Floaters Eye PainSpecialtyDiagnoses / ProceduresReferred By ContactReferred To Contact Ophthalmology Diagnoses Vitreous hemorrhage of left eye Diabetic retinopathy associated with type 2 diabetes mellitus, macular edema presence unspecified, unspecified laterality, unspecified retinopathy severity Jessica Puentes MD [address] [place] [address] [facility] [address] [place] [address] Referral IDStatusReasonStart DateExpiration DateVisits RequestedVisits [id number] Request/[id number] DateComments Medication Ltmamz924ReasonCommentsEstablish CareseizuresSpecialty Diagnoses / ProceduresReferred By ContactReferred To ContactNeurology Diagnoses Seizures (HCC) Fab Head MD [address] [place] [address] Virgen Campos MD [address] [place] [address] Referral IDStatusReasonStart DateExpiration DateVisits RequestedVisits [id number] Review/000080CykiovSjmct DateComments Medication Qmehap814ReasonCommentsMed Change RequestReasonComments Diabetes MellitusGap Closure (Health Maintenance)There are no preventive care reminders to display for this patient.SpecialtyDiagnoses / ProceduresReferred By ContactReferred To ContactEndocrinology Diagnoses Type 2 diabetes mellitus with diabetic polyneuropathy, with long-term current use of insulin (HCC) Diabetic peripheral neuropathy (HCC) Stephany Pelayo PA-C [address] [place] [address] [facility] [address] [place] [address] Referral IDStatusReasonStart DateExpiration DateVisits RequestedVisits [id number]/13/202312/777959YyawfvDiute DateCommentsMedication Hcygyf864ReasonCommentsPainVAS= 9/10DAX CONSENTYESBack PainThoracic to lumbar painSpecialtyDiagnoses / ProceduresReferred By ContactReferred To Contact Pain Medicine Diagnoses Chronic pain syndrome Muscle spasms of both lower extremities Stephany Pelayo PA-C [facility] [address] [facility] [address] [place] [address] [facility] [address] [place] [address] Referral IDStatusReasonStart DateExpiration DateVisits RequestedVisits [id number]/11/20244/420223XiolqcFrtyv DateCommentsMedication Rencnp444ReasonCommentsAcute VisitCough, sore throat x 1 weekReasonOnset DateCommentsnebulizer ukslbcgn35/22/2024ReasonOnset DateCommentsMedication Tidktr774ReasonOnset DateCommentsMedication Foolqp444Reason CommentsToe InjuryWound CheckSpecialtyDiagnoses / ProceduresReferred By Contact Referred To Contact Diagnoses Diabetic ulcer of left great toe (HCC) Diabetic ulcer of toe of left foot associated with type 2 diabetes mellitus, limited to breakdown of skin (HCC) Referral IDStatusReasonStart DateExpiration DateVisits RequestedVisits [id number] DateCommentsCare Management Dczxbilu77/04/2024 Food Insecurity, Housing ResourcesReasonCommentsFollow-upHosp follow up-left big toeReasonOnset DateCommentsMedication Lehezm804ReasonOnset DateComments Medication Dhgvex134ReasonCommentsToe PainLeft great toe infection since Thursday-pain, drainageReasonCommentsFollow-upPainVAS = 9ack PainLumbar pain ReasonCommentsFollow-upCheck b12 level, supplies for toeHeartburn worse-can we increase med doseReasonOnset DateCommentsMedication Saueiy964Reason CommentsFollow-up4 week f/uAbdominal CrampingFor a couple of weeks, diarrhea for 1 weekReasonOnset DateCommentsMedication Ceqjut724ReasonOnset Date CommentsGentry Qeoity994ReasonCommentsToe PainSpecialtyDiagnoses / ProceduresReferred By ContactReferred To Contact Diagnoses Elevated troponin SIRS (systemic inflammatory response syndrome) (HCC) Toe osteomyelitis (HCC) Diabetes mellitus due to underlying condition with hyperglycemia, with long-term current use of insulin (HCC) Osteomyelitis of great toe (HCC) Referral IDStatusReasonLawrence DateExpiration DateVisits RequestedVisits [id number] DateCommentsMedication Qviqme584Reason Onset DateCommentsMedication Rnqgav124ReasonCommentsPost-op ProblemToe PainSpecialtyDiagnoses / ProceduresReferred By ContactReferred To Contact Diagnoses Diabetic foot infection (HCC) Postoperative infection, unspecified type, initial encounter Referral IDStatusReasonart DateExpiration DateVisits RequestedVisits [id number] 8/Follow-upFoot PainReasonOnset Date CommentsMedication Twgcdn9805/27/2024ReasonOnset DateCommentsincontinence supplies 06/06/2024ReasonOnset DateCommentsMedication Fpayac5506/10/2024ReasonCommentsFoot UlcerLT foot ulcersReasonCommentsAcute JreblU7K for shower chairReasonOnset Date Commentsshower chair07/21/2024ReasonOnset DateCommentsMedication Refill 07/12/2024ReasonOnset DateCommentsPulse ox08/04/2024ReasonCommentsFollow-upWould like miralax and zinc oxide creamReasonOnset DateCommentsMedication Refill 08/18/2024ReasonCommentsPainFollow-upLeg PainFoot PainVas 10/10ReasonOnset Date LseefgdhPnrpw20/08/2025ReasonOnset DateCommentsMedication Piurwa5809/22/2024Reason Onset DateCommentsMedication Ecokzs3010/06/2024ReasonCommentsNo ShowSpecialty Diagnoses / ProceduresReferred By ContactReferred To ContactEndocrinology, Diabetes & Metabolism Diagnoses Type 2 diabetes mellitus with diabetic polyneuropathy, with long-term current use of insulin Stephany Pelayo PA-C Phone: tel: fax: [facility] [address] [place] [address] Referral IDStatusReasonStart DateExpiration DateVisits RequestedVisits [id number] Review/[id number] DateComments Medication Nqnpga3011/21/2024ReasonOnset DateCommentsMedication Eqpwfz2412/19/2024 ReasonCommentsDiabetes3 YEARSReasonCommentsPainFollow-upBack PainVas 02/01Reason Onset DateCommentsPower scooter DME02/24/2025ReasonCommentsBack PainKnee Pain SpecialtyDiagnoses / ProceduresReferred By ContactReferred To Contact Neurosurgery Diagnoses Lumbar stenosis with neurogenic claudication Mihai Elizalde, [employer] [address] [place] [address] Phone: tel: fax: Raul Kumar MD [address] [address] Phone: tel: fax: Referral IDStatusReasonStart DateExpiration DateVisits RequestedVisits [id number]/2/202510/2/366928OiopleXsumq DateCommentsPrior Gdimaltwwxyfg53/21/2025ReasonOnset DateCommentsMedication Vrbhne3803/21/2025 Bridger Garner MD - 06/04/2020 1:07 PM EST H&P Notes (unrecognized sect ion and content) HISTORY AND PHYSICAL Patient Name: Addie Jean Baptiste Admit Date: [id number] MR #: [id number] : 1975 Physicians: Provider Not in System [...] PT/OT Hibiclens Lactate elevated, will monitor Seizures ([facility]) Assessment & Plan Continue home keppra, depakote Bipolar 1 disorder ([facility]) Assessment & Plan No evidence of denys at this time Continue home seroquel, lee ann ulrichlar Hypertension Assessment & Plan Continue home lopressor Diabetes mellitus type II, uncontrolled ([facility]) Assessment & Plan A1c 10.2% On insulin [...] resistant Staphylococcus aureus) Pacemaker Seizures (HCC) Stroke ([facility]) Past Surgical History: Procedure Laterality Date CHOLECYSTECTOMY [...] file Gets together: Not on file Attends tenriism service: Not on file Active member of [...] and iv dye, Fentanyl, Ibuprofen, Latex, Nsaids (non- steroidal anti-inflammatory drug), Vancomycin, and Propoxyphene Home Medications: Outpatient Medications as of 06/04/2020 Medication Sig atorvastatin (LIPITOR) 20 MG tablet Take 20 mg by mouth nightly busPIRone (BUSPAR) 15 MG tablet 15 mg 2 (two) times a day States takes for 1 more week then goes tohigher dose . divalproex (DEPAKOTE) 500 MG delayed [...] at pharmacy - uses [facility] in [place] . FLUoxetine (PROZAC) 40 MG capsule Take [...] Mikel Hall RN - 06/03/2020 4:26 PM ESTSMikel howard RN - 06/03/2020 3:51 PM ESTHydKo farrell MD - 06/03/2020 3:17 PM EST ED Notes (unrecognized secti on and content) 3N updated, 316 room assigned. 3N called, medsur bed assignment will be made after covid status. Report given to JAEL Landaverde. All questions answered to the best of this rn ability, report accepted. Associated Order(s): Critical Care ED PROVIDER NOTE [facility] EM[facility] NAME: Addie Jean Baptiste AGE: 45 y.o. : 1975 VISIT DATE: 06/03/2020 CSN: [id number] PCP: Provider Not in System Chief Complaint Patient presents with Wound Infection For the past week her left first toe has been inflamed. Two days ago she became aware of some serous drainage from her toe. On 06/02/2020 she was seen at [facility], and was started on Keflex atthat time. Her toe is not any better. [...] file Gets together: Not on file Attends tenriism service: Not on file Active member of [...] Inhale 1 puff 2 (two) times aday. insulin lispro (HumaLOG) 100 unit/mL injection Inject [...] radiographic studies and re-evaluation of patient's condition. MDM . At 3:45 [...] 06/03/20 1635 Ko Hankins MD 06/03/20 1636 * Mikel Hall RN - 06/03/2020 3:04 PM EST Pt return from ct scan * Mikel Hall RN - 06/03/2020 2:39 PM EST Pt verbalized to dr hankins, the toe was leaking about one week ago and noticed a piece of skin came off like a blister. * Mikel Hall RN - 06/03/2020 2:37 PM EST Pt has 2m x 1cm unstageable wound to medial tip of left great toe. Left foot swollen greater than right. Left foot redness noted. * Mikel Hall RN - 06/03/2020 2:33 PM EST Pt present with wound to left great toe. Pt hx of one week wound. Pt denies any injuries to toe. Ptverbalizes was at [facility] yesterday and they did nothing for me . Pt did acknowledge shegot antibiotics. Pt in nad * Kj Torres RN - 06/03/2020 2:29 PM EST Called [facility] [phone] to see if they could fax me records from yesterdays ER visit,talked to Emma states she will fax the records documented in this encounter Care Team (unrecognized sect ion and content) Team Status: Active Member Role Status Dates Laurent Franco POWER WASHER-C Primary Care Provider Active Team Status: Inactive Member Role Status Dates [facility] Cassandra Franco NP-C Primary Care Provider Active Diogenes Torres ProviderActiveEzekiel Mathew , DOAdmit ProviderActiveRalouise Martini MDAttwilman ProviderActiveLawrence Kim MDOther ProviderActiveNicJAS BeeMOdeuce ProviderActiveShameka Romero MDOther ProviderActiveTeam MemberRelationshipSpecialtyStart DateEnd Date Cem Mario DO [address] [place] [address] PCP - GeneralFamily Medicine05/28/15 Team Status: Active Member Role Status Dates [facility] Cassandra Franco NP-C Primary Care Provider Active Jacob A Keister , DOEmergency ProviderActiveKrfrankie Mathew , DOAdmit Provider, Attending ProviderActive Team Status: Inactive Member Role Status Dates Tobyp Cassandra Franco , POWER WASHER-C Primary Care Provider Active Jacob Farfan , DOEmergency ProviderActiveKristanand Mathew , DOAdmit ProviderActiveLawrence Kim MDOther ProviderActiveNiclino Castillo DPMOther ProviderActiveShameka Romero MDOther ProviderActiveJeana Martini MD Attending ProviderActive Team Status: Inactive Member Role Status Dates Tobyp W Salvador , POWER WASHER-C Primary Care Provider Active Shameka Romero MDAttending ProviderActiveTeam MemberRelationship SpecialtyStart DateEnd Date System, Provider Not In PCP - General01/12/23Team MemberRelationshipSpecialtyStart DateEnd Date System, Provider Not In PCP - General01/12/23Team MemberRelationshipSpecialtyStart DateEnd Date System, Provider Not In PCP - General01/12/23Team MemberRelationshipSpecialtyStart DateEnd Date System, Provider Not In PCP - General01/12/2311 Enrique Hebert DO [address] [place] [address] PCP - GeneralPrimary Care03/30/23Team MemberRelationshipSpecialtyStart DateEnd Date Enrique Hebert DO [address] [place] [address] PCP - GeneralPrimary Care03/30/23Team MemberRelationshipSpecialtyStart DateEnd Date Enrique Hebert DO [address] [place] [address] PCP - GeneralPrimary Care03/30/23Team MemberRelationshipSpecialtyStart DateEnd Date Enrique Hebert DO [address] [place] [address] PCP - GeneralPrimary Care11/6/23Team MemberRelationshipSpecialtyStart DateEnd Date Enrique pisano DO [address] [place] [address] PCP - GeneralPrimary Care11/6/23Team MemberRelationshipSpecialtyStart DateEnd Date [facility] [address] [place] [address] PCP - GeneralPrimary Care11/6/23Team MemberRelationshipSpecialtyStart DateEnd Date [facility] [address] [place] [address] PCP - GeneralPrimary Care11/6/23Team MemberRelationshipSpecialtyStart DateEnd Date [facility] [address] [place] [address] PCP - GeneralPrimary Care11/6/23Team MemberRelationshipSpecialtyStart DateEnd Date [facility] [address] [place] [address] PCP - GeneralPrimary Care11/6/23Team MemberRelationshipSpecialtyStart DateEnd Date [facility] [address] [place] [address] PCP - GeneralPrimary Care11/6/23Team MemberRelationshipSpecialtyStart DateEnd Date [facility] [address] [place] [address] PCP - GeneralPrimary Care11/6/23Team MemberRelationshipSpecialtyStart DateEnd Date Enrique pisano DO [address] [place] [address] PCP - GeneralPrimary Care11/6/23Team MemberRelationshipSpecialtyStart DateEnd Date [facility] [address] [place] [address] PCP - GeneralPrimary Care11/6/23Team MemberRelationshipSpecialtyStart DateEnd Date Enrique pisano DO [address] [place] [address] PCP - GeneralPrimary Care11/6/23Team MemberRelationshipSpecialtyStart DateEnd Date Enrique pisanoDO [address] [place] [address] PCP - GeneralPrimary Care11/6/23Team MemberRelationshipSpecialtyStart DateEnd Date [facility]DO [address] [place] [address] PCP - GeneralPrimary Care11/6/23Team MemberRelationshipSpecialtyStart DateEnd Date aliyaMunaEnriqueDO [address] [place] [address] PCP - GeneralPrimary Care11/6/23Team MemberRelationshipSpecialtyStart DateEnd Date [facility] HospitalMunaEnriqueDO [address] [place] [address] PCP - GeneralPrimary Care03/30/23Team MemberRelationshipSpecialtyStart DateEnd Date Enrique Hebert DO [address] [place] [address] PCP - GeneralPrimary Care03/30/23Team MemberRelationshipSpecialtyStart DateEnd Date [facility] [address] [place] [address] PCP - GeneralPrimary Care03/30/23Team MemberRelationshipSpecialtyStart DateEnd Date [facility] [address] [place] [address] PCP - GeneralPrimary Care03/30/2312 No, Physician [facility] PCP - Wjpoxoi74/7/ Stephany Pelayo PA-C [address] [place] [address] PCP - GeneralInternal Rwfwkwbm51/13/23Team MemberRelationshipSpecialtyStart Date End Date Stephany Pelayo PA-C [address] [place] [address] PCP - GeneralInternal Xdzcqhje24/13/23Team MemberRelationshipSpecialtyStart Date End Date Stephany Pelayo PA-C [address] [place] [address] PCP - GeneralInternal Kdrquydk63/13/23 Josephine Reynoso, RN Case ManagerCase Ppjwbopfxg67/21/23Team MemberRelationshipSpecialtyStart DateEnd Date Stephany Pelayo PA-C [address] [place] [address] PCP - GeneralInternal Ibyrawys50/13/23 Josephine Reynoso, RN Case ManagerCase Djoejdpzbr00/21/23Team MemberRelationshipSpecialtyStart DateEnd Date Stephany Pelayo PA-C [address] [place] [address] PCP - GeneralInternal Gbjdoyjz85/13/23 Josephine Reynoso, RN Case ManagerCase Xrpvdhbnol28/21/23Team MemberRelationshipSpecialtyStart DateEnd Date Stephany Pelayo PA-C [address] [place] [address] PCP - GeneralInternal Wxpkxyud86/13/23 Josephine Reynoso, RN Case ManagerCase Towanokowz91/21/23Team MemberRelationshipSpecialtyStart DateEnd Date Stephany Pelayo PA-C [address] [place] [address] PCP - GeneralInternal Hpygeeee69/13/23 Josephine Reynoso, RN Case ManagerCase Iisqjjpema83/21/23Team MemberRelationshipSpecialtyStart DateEnd Date Enrique Hebert DO [address] [place] [address] PCP - GeneralPrimary Care03/30/2312 No, Physician [facility] PCP - Vmznjid86/7/ Stephany Pelayo PA-C [address] [place] [address] PCP - GeneralInternal Ywaykdlk37/13/23 Josephine Reynoso, RN Case ManagerCase Mppqgdctfa04/21/23Team MemberRelationshipSpecialtyStart DateEnd Date Stephany Pelayo PA-C [address] [place] [address] PCP - GeneralInternal Cehdoejc35/13/23 Josephine Reynoso, RN Case ManagerCase Clweshhduv22/21/23Team MemberRelationshipSpecialtyStart DateEnd Date Stephany Pelayo PA-C [address] [place] [address] PCP - GeneralInternal Vvghmhtb26/13/23 Josephine Reynoso, RN Case ManagerCase Ugjgmdbutm16/21/23Team MemberRelationshipSpecialtyStart DateEnd Date Stephany Pelayo PA-C [address] [place] [address] PCP - GeneralInternal Ggcehags13/13/23 Josephine Reynoso, RN Case ManagerCase Management07/30/23Team MemberRelationshipSpecialtyStart DateEnd Date Stephany Pelayo PA-C [address] [place] [address] PCP - GeneralInternal Mdurmziv24/13/23Team MemberRelationshipSpecialtyStart Date End Date Lexy Leach MD [address] [place] [address] PCP - GeneralClinical Cardiac Electrophysiology09/23/16 Cherelle Fierro MD [address] [place] [address], [address] [address] Family Medicine01/30/12 DarronCem, DO [address] [facility] [place] [address] Consulting PhysicianFamily Xicvpmix68/27/17Team MemberRelationshipSpecialtyStart DateEnd Date Stephany Pelayo PA-C [address] [place] [address] PCP - GeneralInternal Pihbodyk01/13/23Team MemberRelationshipSpecialtyStart Date End Date Stephany Pelayo PA-C [address] [place] [address] PCP - GeneralInternal Hnbuvhmj77/13/23Team MemberRelationshipSpecialtyStart Date End Date Stephany Pelayo PA-C [address] [place] [address] PCP - GeneralInternal Acbtmepl84/13/23Team MemberRelationshipSpecialtyStart Date End Date Stephany Pelayo PA-C [address] [place] [address] PCP - GeneralInternal Amsoblti86/13/23Team MemberRelationshipSpecialtyStart Date End Date Stephany Pelayo PA-C [address] [place] [address] PCP - GeneralInternal Pyaazblm98/13/23 Josephine Reynoso, RN Case ManagerCase [facility]09/21/23Team MemberRelationshipSpecialtyStart DateEnd Date Stephany Pelayo PA-C [address] [place] [address] PCP - GeneralInternal Jfumzhjw39/13/23 Josephine Reynoso, JAEL Case ManagerCase ManagementTeam MemberRelationshipSpecialtyStart DateEnd Date Stephany Pelayo PA-C [address] [facility] [address] [place] [address] PCP - GeneralInternal Lhbcjwpe87/13/23Team MemberRelationshipSpecialtyStart Date End Date Stephany Pelayo PA-C [address] [facility] [address] [place] [address] PCP - GeneralInternal Bbbaazok78/13/23Team MemberRelationshipSpecialtyStart Date End Date Stephany Pelayo PA-C [address] [facility] [address] [place] [address] PCP - GeneralInternal Bccnvpbx81/13/23Team MemberRelationshipSpecialtyStart Date End Date Stephany Pelayo PA-C [address] [facility] [address] [place] [address] PCP - GeneralInternal Wxghormq00/13/23Team MemberRelationshipSpecialtyStart Date End Date Stephany Pelayo PA-C [address] [facility] [address] [place] [address] PCP - GeneralInternal Bfgliaky58/13/23Team MemberRelationshipSpecialtyStart Date End Date Stephany Pelayo PA-C [address] [facility] [address] [place] [address] PCP - GeneralInternal Qbnyqyfq82/13/23Team MemberRelationshipSpecialtyStart Date End Date Stephany Pelayo PA-C [address] [address] PCP - GeneralInternal Nvmnpnty59/13/23Team MemberRelationshipSpecialtyStart Date End Date Lexy Leach MD [address] [place] [phone] PCP - GeneralClinical Cardiac Electrophysiology09/23/16 Cherelle Fierro MD [address] [place] [phone] Family Medicine01/30/12 Cem Mario DO [address] [place] [address] Consulting PhysicianFamily Xewotmot10/27/17Team MemberRelationshipSpecialtyStart DateEnd Date Stephany Pelayo PA-C [address] [address] PCP - GeneralInternal Xcyffanu63/13/23Team MemberRelationshipSpecialtyStart Date End Date Stephany Pelayo PA-C [address] [address] PCP - GeneralInternal Imdtydjo79/13/23Team MemberRelationshipSpecialtyStart Date End Date Stephany Pelayo PA-C [address] [address] PCP - GeneralInternal Qeoipjzh72/13/23Team MemberRelationshipSpecialtyStart Date End Date Stephany Pelayo PA-C [address] [facility] 2 [place] [address] PCP - GeneralInternal Obiukebq59/13/23Team MemberRelationshipSpecialtyStart Date End Date Stephany Pelayo PA-C [address] [facility] 2 [place] [address] PCP - GeneralInternal Kgnzxruz91/Team MemberRelationshipSpecialtyStart Date End Date Stephany Pelayo PA-C [address] [facility] 2 [place] [address] PCP - GeneralInternal Tnmrvvst43/13/23Team MemberRelationshipSpecialtyStart Date End Date Stephany Pelayo PA-C [address] [facility] 2 [place] [address] PCP - GeneralInternal Cqmtntyf88/13/23Team MemberRelationshipSpecialtyStart Date End Date Stephany Pelayo PA-C [address] [facility] [address] [place] [address] PCP - GeneralInternal Xdudppcb98/13/23Team MemberRelationshipSpecialtyStart Date End Date Stephany Pelayo PA-C [address] [facility] 2 [place] [address] PCP - GeneralInternal Ketcfldr75/13/23Team MemberRelationshipSpecialtyStart Date End Date Stephany Pelayo PA-C [address] [facility] 2 [place] [address] PCP - GeneralInternal Oberpmno79/23Team MemberRelationshipSpecialtyStart Date End Date Stephany Pelayo PA-C [address] [place] [address] PCP - GeneralInternal Oeyogifg31/13/23Team MemberRelationshipSpecialtyStart Date End Date Stephany Pelayo PA-C [address] [place] [address] PCP - GeneralInternal Efqkwmzf41/13/23Team MemberRelationshipSpecialtyStart Date End Date Stephany Pelayo PA-C [address] [place] [address] PCP - GeneralInternal Ixrheghx61/13/23Team MemberRelationshipSpecialtyStart Date End Date Stephany Pelayo PA-C [address] [place] [address] PCP - GeneralInternal Cpekslyb70/13/23 Swapnil Hooks Community Health WorkerCase Management01/27/24Team MemberRelationshipSpecialty Start DateEnd Date Stephany Pelayo PA-C [address] [place] [address] PCP - GeneralInternal Vvndogzz99/13/23 Swapnil Hooks Community Health WorkerCase Management01/27/24Team MemberRelationshipSpecialty Start DateEnd Date Stephany Pelayo PA-C [address] [place] [address] PCP - GeneralInternal Sjxwolzf39/13/23 Swapnil Hooks Community Health WorkerCase Management01/27/24Team MemberRelationshipSpecialty Start DateEnd Date Stephany Pelayo PA-C [address] [facility] 2 [place] [address] PCP - GeneralInternal Skjsczlb82/13/23 Swapnil Hooks Community Health WorkerCase Management01/27/24Team MemberRelationshipSpecialty Start DateEnd Date Stephany Pelayo PA-C [address] [facility] 2 [place] [address] PCP - GeneralInternal Kjbozisa20/13/23 Swapnil Hooks [facility] Health WorkerCase Management01/27/24Team MemberRelationshipSpecialty Start DateEnd Date Stephany Pelayo PA-C [address] [facility] 2 [place] [address] PCP - GeneralInternal Sqojyxcl43/13/23Team MemberRelationshipSpecialtyStart Date End Date Stephany Pelayo PA-C [address] [facility] 2 [place] [address] PCP - GeneralInternal Pernowej59/13/23 Swapnil Hooks Community Health WorkerCase Management01/27/24 Radha Davalos, JULI DietitianDietitian/Nutritionist02/04/24Team MemberRelationshipSpecialtyStart Date End Date Stephany Pelayo PA-C [address] [facility] 2 [place] [address] PCP - GeneralInternal Txyvgpgw49/13/23 Swapnil Hooks [facility] Health WorkerCase Management01/27/24Team MemberRelationshipSpecialty Start DateEnd Date Stephany Pelayo PA-C [address] [facility] 2 [place] [address] PCP - GeneralInternal Taqbbtoe55/13/23 Swapnil Hooks Community Health WorkerCase Management01/27/24 Radha Davalos, JULI DietitianDietitian/Nutritionist02/04/24Team MemberRelationshipSpecialtyStart Date End Date Stephany Pelayo PA-C [address] [facility] 2 [place] [address] PCP - GeneralInternal Ynfbdvdx11/13/23 Swapnil Hooks Community Health WorkerCase Management01/26/2410Team MemberRelationship SpecialtyStart DateEnd Date Stephany Pelayo PA-C [address] [address] PCP - GeneralInternal Kyybilww21/13/23Team MemberRelationshipSpecialtyStart Date End Date Stephany Pelayo PA-C [address] [place] [address] PCP - GeneralInternal Njdzjrnu94/13/23Team MemberRelationshipSpecialtyStart Date End Date Stephany Pelayo PA-C [address] [place] [address] PCP - GeneralInternal Wzomoehw68/13/23Team MemberRelationshipSpecialtyStart Date End Date Stephany Pelayo PA-C [address] [place] [address] PCP - GeneralInternal Ehpesiad46/13/23Team MemberRelationshipSpecialtyStart Date End Date Stephany Pelayo PA-C [address] [facility] 2 [place] [address] PCP - GeneralInternal Bwzuhlvi67/13/23Team MemberRelationshipSpecialtyStart Date End Date Stephany Pelayo PA-C [address] [place] [address] PCP - GeneralInternal Ecickglo91/13/23Team MemberRelationshipSpecialtyStart Date End Date Stephany Pelayo PA-C [address] [facility] 2 [place] [address] PCP - GeneralInternal Wfncmyqj44/13/23Team MemberRelationshipSpecialtyStart Date End Date Stephany Pelayo PA-C [address] [facility] 2 [place] [address] PCP - GeneralInternal Svwykzkq86/13/23Team MemberRelationshipSpecialtyStart Date End Date Stephany Pelayo PA-C [address] [facility] 2 [place] [address] PCP - GeneralInternal Sowwygqm90/13/23Team MemberRelationshipSpecialtyStart Date End Date Stephany Pelayo PA-C [address] [facility] 2 [place] [address] PCP - GeneralInternal Lnaokaup53/13/23Team MemberRelationshipSpecialtyStart Date End Date Stephany Pelayo PA-C [address] [facility] 2 [place] [address] PCP - GeneralInternal Hiwhafqo77/13/23Team MemberRelationshipSpecialtyStart Date End Date Stephany Pelayo PA-C [address] [address] PCP - GeneralInternal Hxpcpare27/13/23Team MemberRelationshipSpecialtyStart Date End Date Stephany Pelayo PA-C [address] [address] PCP - GeneralInternal Kufoirbd59/13/23Team MemberRelationshipSpecialtyStart Date End Date Stephany Pelayo PA-C [address] [address] PCP - GeneralInternal Ugkmwmqu55/13/23Team MemberRelationshipSpecialtyStart Date End Date Stephany Pelayo PA-C [address] [address] PCP - GeneralInternal Ocibpaaa87/13/23Team MemberRelationshipSpecialtyStart Date End Date Unallocated, Noms Provider, [address] [place] [address] PCP - GeneralFamily Medicine07/05/24 Jim Velez MD [address] [place] [address] Referring PhysicianPain Medicine07/05/24Team MemberRelationshipSpecialtyStart DateEnd Date Stephany Pelayo PA-C [address] [place] [address] PCP - GeneralInternal Ohcbpviz93/13/23Team MemberRelationshipSpecialtyStart Date End Date Stephany Pelayo PA-C [address] [place] [address] PCP - GeneralInternal Exgohxlg69/13/23Team MemberRelationshipSpecialtyStart Date End Date Stephany Pelayo PA-C [address] [facility] 2 [place] [address] PCP - GeneralInternal Jzdcithl32/13/23Team MemberRelationshipSpecialtyStart Date End Date Stephany Pelayo PA-C [address] [facility] [address] [place] [address] PCP - GeneralInternal Ukemwfdq14/13/23Team MemberRelationshipSpecialtyStart Date End Date Stephany Pelayo PA-C [address] [facility] [address] [place] [address] PCP - GeneralInternal Abywkcty46/13/23Team MemberRelationshipSpecialtyStart Date End Date Stephany Pelayo PA-C [address] [facility] [address] [place] [address] PCP - GeneralInternal Hyawccbo50/13/23Team MemberRelationshipSpecialtyStart Date End Date Stephany Pelayo PA-C [address] [facility] [address] [place] [address] PCP - GeneralInternal Dlcspqal39/13/23Team MemberRelationshipSpecialtyStart Date End Date Stephany Pelayo PA-C [address] [facility] 2 [place] [address] PCP - GeneralInternal Laugzkaf96/13/23Team MemberRelationshipSpecialtyStart Date End Date Stephany Pelayo PA-C [address] [place] [address] 2 [place] [address] PCP - GeneralInternal Icrniylo92/13/23Team MemberRelationshipSpecialtyStart Date End Date Stephany Pelayo PA-C [address] [place] [address] PCP - GeneralInternal Ujnsrfpn54/13/23Team MemberRelationshipSpecialtyStart Date End Date Stephany Pelayo PA-C [facility] [place] [address] PCP - GeneralInternal Pycgqkgx68/13/23Team MemberRelationshipSpecialtyStart Date End Date Stephany Pelayo PA-C [address] [place] [address] PCP - GeneralInternal Vefzzwia03/13/23Team MemberRelationshipSpecialtyStart Date End Date Lexy Leach MD [address] [place] [address] PCP - GeneralClinical Cardiac Electrophysiology09/23/16 Cherelle Fierro MD [address] [place] [phone] Family Medicine01/30/12 Cem Mario W, DO [address] [place] [address] Consulting PhysicianFamily Jfeqfayo86/27/17Team MemberRelationshipSpecialtyStart DateEnd Date Stephany Pelayo PA-C [address] [place] [address] PCP - [facility]05/06/Team MemberRelationshipSpecialty Start DateEnd Date Radha Dias DO PCP - [facility] Team Status: Inactive Member Role Status Dates Ben Horn DO Attending Provider Active S tart: December 28, 2024 End: December 28, 2024Team MemberRelationshipSpecialtyStart DateEnd Date Unallocated, Shilas MD Brendan [facility] [place] [address] [facility] - [facility]07/05/24 Jim Velez MD [address] [place] [phone] Referring [facility]07/05/24Team MemberRelationshipSpecialtyStart DateEnd Date Unallocated, Shilas MD Brendan [facility] [place] [address] [facility] - [facility]07/05/24 Jim Velez MD [address] [place] [phone] [facility]24 Team Status: Active Member Role Status Dates Andrés Lopez DO Primary Care Provider Active Team Status: Inactive Member Role Status Dates Andrés Lopez DO Primary Care Provider Active Start: February 20, 2025 End: February 20, 2025Mitcorin Lopez DOAttending ProviderActiveStart: February 20, 2025 End: February 20, 2025Team MemberRelationshipSpecialtyStart DateEnd Date System, Provider Not In [facility] Kcotjhb90/2/25Team MemberRelationshipSpecialtyStart DateEnd Date System, Provider Not In [facility] Argbszr68/2/25Te MemberRelationshipSpecialtyStart DateEnd Date System, Provider Not In [facility]02/23/25Te MemberRelationshipSpecialtyStart DateEnd Date System, Provider Not In [facility]02/23/25Te MemberRelationshipSpecialtyStart DateEnd Date System, Provider Not In [facility]02/23/25Te MemberRelationshipSpecialtyStart DateEnd Date Unallocated, Dominguez Cardona MD [address] [place] [address] PCP [facility]07/05/24 Jim Velez MD [address] [facility] [place] [address] Referring [facility]07/05/24Te MemberRelationshipSpecialtyStart DateEnd Date System, Provider Not In [facility]02/23/25 Team Status: Active Member Role/Relationship Status Dates Andrés Lopez DO Primary Care Provider Active Team Status: Inactive Member Role/Relationship Status Dates Andrés Lopez DO Primary Care Provider Active Start: February 20, 2025 End: February 20, 2025Bruno Weber ProviderActiveStart: February 20, 2025 End: February 20, 2025 Team Status: Active Member Role/Relationship Status Dates Andrés Lopez DO Primary Care Provider Active Start: March 16, 2025 Vivien Padron ProviderActiveStart: March 16, 2025 Team Status: Inactive Member Role/Relationship Status Dates Andrés Lopez DO Primary Care Provider Active Start: April 04, 2025 End: April 04, 2025Bruno Weber ProviderActiveStart: April 04, 2025 End: April 04, 2025 Ordered Prescriptions (unrec ognized section and content) PrescriptionSigDispensedRefillsStart DateEnd Date zolpidem (AMBIEN) 5 MG tablet Indications:Other insomniaTake 1 tablet by mouth nightly as needed for Sleep for up to 14 days. 7 tablet 007/17/471377/ Scheduled Active and Recently Administ ered Medications (unrecognized section and content) Medication Order// acetaminophen (TYLENOL) tablet 1,000 mg (COMPLETED) 1,000 mg, Oral, ONCE, 1 dose, On Thu12/08/21 at 1547, Maximum dose of acetaminophen is 4000 mg fromall sources in 24 hours. * 1553 (Given - Provider: Lawrence Christiansen, JAEL) Medication Order// iohexol (OMNIPAQUE) 300 MG/ML injection (COMPLETED) 50 mL, Intravenous Push, Once at Radiology exam, 1 dose, Starting on Thu10/07/22 at 0341, Until Thu10/07/22 at 0341, Imaging Protocol Orders * 0341 (Given - Provider: Beverley Iniguez) Iohexol SOLN 15,000 mg (COMPLETED) 15,000 mg (50 mL), Intrathecal, Once at Radiology exam, 1 dose, Starting on Thu10/07/22 at 0328, Until Thu10/07/22 at 0337, Imaging Protocol Orders * 0337 (Given - Provider: Beverley Iniguez) Iohexol SOLN 3,000 mg 3,000 mg (10 mL), Intrathecal, Once at Radiology exam, 1 dose, Starting on Thu10/07/22 at 0427, Until Discontinued, Imaging Protocol Orders magnesium sulfate 2 GM/50ML in 50 mL ivpb (COMPLETED) 2 g (2,000 mg), Intravenous, ONCE, 1 dose, On Thu10/07/22 at 0016 * 0009 (IV New Bag - Provider: Ifeanyi Ramesh RN) * 0715 (IV Stop - Provider: Mary Abdi, JAEL) ondansetron (ZOFRAN) 4 MG/2ML injection (COMPLETED) 4 mg, Intravenous Push, ONCE, 1 dose, On Thu10/07/22 at 1118 * 1057 (Given - Provider: Jaqueline Rowland, JAEL) oxyCODONE-acetaminophen (PERCOCET) 5-325 mg per tablet (COMPLETED) 1 Tablet, Oral, STAT, 1 dose, On Thu10/06/22 at 2228 * 2214 (Given - Provider: Elizabeth Mccullough RN) QUEtiapine (SEROQUEL) tablet (COMPLETED) 400 mg, Oral, Once, 1 dose, On Thu10/06/22 at 2339 * 0007 (Given - Provider: Ifeanyi Ramesh RN) tizanidine (ZANAFLEX) tablet (COMPLETED) 12 mg, Oral, ONCE, 1 dose, On Thu10/06/22 at 2339 * 0008 (Given - Provider: Ifeanyi Ramesh RN) Medication Order02/18//// clopidogreL (PLAVIX) tablet 75 mg 75 mg, Oral, Daily, First dose on Thu02/18/23 at 0900 * 0955 (Given - Provider: Sandra Raman RN) * 1134 (Given - Provider: Rafaela Casarez LPN) * 1018 (Given - Provider: Swapnil Maldonado RN) enoxaparin (LOVENOX) syringe 30 mg 30 mg, Subcutaneous, Daily, First dose (after last modification) on Thu02/20/23 at 0900, Administerin abdomen unless otherwise directed by prescriber. Notify physician if patient refuses., Indication: VTE Prophylaxis * 1018 (Given - Provider: Swapnil Maldonado RN) enoxaparin (LOVENOX) syringe 40 mg (CANCELED) 40 mg, Subcutaneous, 2 times daily, First dose on Thu02/18/23 at 0900, Administer in abdomen unlessotherwise directed by prescriber. Notify physician if patient refuses., Indication: VTE Prophylaxis * 0957 (Given - Provider: Sandra Raman RN) * 2151 (Given - Provider: Monique Grande RN) * 1134 (Given - Provider: Rafaela Casarez LPN) insulin lispro (AdmeLOG,HumaLOG) injection 0-15 Units 0-15 Units, Subcutaneous, At bedtime, First dose (after last modification) on Thu02/19/23 at 2100, For Nightly Insulin Dose Coverage, use: CORRECTIVE (Only) for BG greater than 300, Nightly CORRECTIVE Dose Method: Follow Corrective SCALE, Corrective Scale to use for BG > 300: Conservative Scale,For Downtime Calculator, use: Insulin SC NIGHTtime * 2100 (Not Given - Provider: Dannielle Jeong [...] desired scale to cover BG result): Insulin RESISTANTScale, For Downtime Calculator, use: Insulin SC MEALtime PREprandial * 0730 (Not Given - Provider: Sandra Raman RN - Reason: Order parameters not met) * 1130 (Not Given - Provider: Sandra Raman RN - Reason: Patient/family refused - Comment: patient has insulin pump) * 1630 (Not Given - Provider: Sandra Raman RN - Reason: Patient/family refused - Comment: Patient gave self 20units from insulin pump) * 0730 (Not Given - Provider: Rafaela Casarez LPN - Reason: Order parameters not met) * 1130 (Not Given - Provider: Rafaela Casarez LPN - Reason: Order parameters not met) * 1630 (Given - Provider: Dannielle Jeong RN - Comment: PT has insulin pump and doses herself.) * 0730 (Given - Provider: Swapnil Maldonado RN - Comment: patient has insulin pump administers own insulin per pump) * 1130 (Not Given - Provider: Swapnil Maldonado RN - Reason: Patient/family refused) levETIRAcetam (KEPPRA) tablet 1,000 mg 1,000 mg, Oral, 2 times daily, First dose on Thu02/18/23 at 0900 * 0954 (Given - Provider: Sandra Raman RN) * 215 (Given - Provider: Monique Grande RN) * 1134 (Given - Provider: Rafaela Casarez LPN) * 2152 (Given - Provider: Dannielle Jeong RN) * 1018 (Given - Provider: Swapnil Maldonado, JAEL) levothyroxine (SYNTHROID, LEVOTHROID) tablet 75 mcg 75 mcg, Oral, Daily, First dose on Thu02/18/23 at 0600, For patients on continuous tube feed: Hold TF from 1 hr before until 1 hr after each dose. TF rate may need adjustment to meet caloric needs. * 0609 (Given - Provider: Monique Grande RN) * 0600 (Not Given - Provider: Rafaela Casarez LPN - Reason: Other - Comment: pt not awake enough at this time) * 0733 (Given - Provider: Rafaela Casarez LPN) * 0518 (Given - Provider: Dannielle Jeong RN) lisinopriL (PRINIVIL,ZESTRIL) tablet 40 mg (CANCELED) 40 mg, Oral, Daily with lunch, First dose on Thu02/18/23 at 1200 * 1208 (Given - Provider: Sandra Raman RN) metoprolol succinate (TOPROL-XL) 24 hr tablet 50 mg (CANCELED) 50 mg, Oral, Daily, First dose on Thu02/18/23 at 0900, DO NOT CRUSH OR CHEW. * 0956 (Given - Provider: Sandra Raman RN) midodrine (PROAMATINE) tablet 10 mg 10 mg, Oral, 2 times daily, First dose on Thu02/19/23 at 0900 * 0744 (Given - Provider: Rafaela Casarez LPN) * 0900 (Canceled Entry - Provider: Rafaela Casarez LPN - Comment: given) * 1723 (Not Given - Provider: Dannielle Jeong RN - Reason: Patient/family refused - Comment: PT stated she will not take medicatipn unless she can have her psych meds.) * 0803 (Given - Provider: Swapnil Maldonado, JAEL) mometasone-formoterol (DULERA) 200-5 mcg/actuation inhaler 2 puff 2 puff, Inhalation, 2 times daily (RT), First dose on Thu02/18/23 at 0900 * 0956 (Given - Provider: Sandra Raman RN) * 2140 (Given - Provider: Monique Grande RN) * 1134 (Given - Provider: Rafaela Casarez LPN) * 215 (Given - Provider: Dannielle Jeong RN) * 1017 (Given - Provider: Swapnil Maldonado RN) pantoprazole (PROTONIX) EC tablet 40 mg 40 mg, Oral, Every morning before breakfast, First dose on Thu02/18/23 at 0730, DO NOT CRUSH OR CHEW. * 0730 (Given - Provider: Sandra Raman RN) * 1134 (Given - Provider: Rafaela Casarez LPN) * 0803 (Given - Provider: Swapnil Maldonado RN) pregabalin (LYRICA) capsule 25 mg 25 mg, Oral, 2 times daily, First dose (after last modification) on Thu02/19/23 at 2100 * 2159 (Given - Provider: Dannielle Jeong RN) * 1017 (Given - Provider: Swapnil Maldonado RN) pregabalin (LYRICA) capsule 75 mg (CANCELED) 75 mg, Oral, 2 times daily, First dose on Thu02/18/23 at 0400 * 0404 (Given - Provider: Monique Garnde RN) * 0955 (Given - Provider: Sandra Raman RN) * 215 (Given - Provider: Monique Grande RN) * 0900 (Not Given - Provider: Rafaela Casarez LPN - Reason: Order parameters not met) QUEtiapine (SEROQUEL) tablet 200 mg 200 mg, Oral, Nightly, First dose (after last modification) on Thu02/19/23 at 2100, May cause QT interval prolongation. * 2152 (Given - Provider: Dannielle Jeong RN) QUEtiapine (SEROQUEL) tablet 800 mg (CANCELED) 800 mg, Oral, Nightly, First dose on Thu02/18/23 at 0400, May cause QT interval prolongation. * 0404 (Given - Provider: Monique Grande RN) * 2153 (Given - Provider: Monique Grande RN) regadenoson (LEXISCAN) injection 0.4 mg (COMPLETED) 0.4 mg, Intravenous, Once, On Thu02/18/23 at 0945, For 1 dose * 0920 (Given - Provider: Sandra Lorenzo RN) sodium chloride (PF) (NS) flush 5 mL(Linked Group 1) 5 mL, Intravenous, Every 8 hours scheduled, First dose on Thu02/18/23 at 0030, Saline lock * 0415 (Given - Provider: Monique Grande RN - Comment: not verified prior) * 0600 (Canceled Entry - Provider: Monique Grande RN) * 1400 (Given - Provider: Sandra Raman, JAEL) * 2151 (Given - Provider: Monique Grande RN) * 0600 (Canceled Entry - Provider: Rafaela Casarez LPN) * 1400 (Canceled Entry - Provider: Rafaela Casarez LPN) * 2200 (Not Given - Provider: Dannielle Jeong RN - Reason: Order parameters not met - Comment: IV infusing) * 0600 (Not Given - Provider: Dannielle Jeong RN - Reason: Order parameters not met - Comment: IV infusing) * 1400 (Not Given - Provider: Swapnil Maldonado RN - Reason: Other - Comment: discharging) sodium chloride 0.9% (NS) bolus 500 mL (COMPLETED) 500 mL, Intravenous, at 967.7 mL/hr, Once, On Thu02/19/23 at 0500, For 1 dose * 0442 (New Bag - Provider: Rafaela Casarez LPN) * 0513 (Rate/Dose Change - Provider: Rafaela Casarez LPN) * 0521 (Stopped - Provider: Rafaela Casarez LPN) sodium chloride 0.9% (NS) bolus 500 mL () 500 mL, Intravenous, at 967.7 mL/hr, Once, On Danelle 02/19/23 at 0700, For 1 dose * 0645 (Restarted - Provider: Rafaela Casarez LPN) * 0700 (Canceled Entry - Provider: Rafaela Casarez LPN) * 0715 (Stopped - Provider: Rafaela Casarez LPN) technetium (Tc-99m) sestamibi (CARDIOLITE) injection 30.4 millicurie (COMPLETED) 30.4 millicurie, Intravenous, Once, On Thu02/18/23 at 0930, For 1 dose * 0923 (Contrast Administered - Provider: Davide Mims, TECHNOLOGIST) technetium (Tc-99m) sestamibi (CARDIOLITE) injection 8-25 millicurie (COMPLETED) 8-25 millicurie, Intravenous, Once, On Thu02/18/23 at 0930, For 1 dose * 0740 (Contrast Administered - Provider: Swapnil Wright, TECHNOLOGIST) tiZANidine (ZANAFLEX) tablet 12 mg (CANCELED) 12 mg, Oral, Nightly, First dose on Thu02/18/23 at 2300 * 2315 (Given - Provider: Monique Grande RN) Medication Order02/18//// sodium chloride 0.9% (NS) () 100 mL/hr, Intravenous, Continuous, Starting on Danelle 02/19/23 at 0700, For 10 hours * 0700 (Canceled Entry - Provider: Rafaela Casarez LPN) * 0905 (New Bag - Provider: Rafaela Casarez LPN) * 0920 (Rate/Dose Change - Provider: Rafaela Casarez LPN - Comment: per verbal) * 1135 (Rate/Dose Verify - Provider: Rafaela Casarez LPN) * 1217 (Rate/Dose Change - Provider: Rafaela Casarez LPN) * 1344 (Rate/Dose Verify - Provider: Rafaela Casarez LPN) sodium chloride 0.9% (NS) 100 mL/hr, Intravenous, Continuous, Starting on Danelle 02/19/23 at 1415, For 24 hours * 1415 (Canceled Entry - Provider: Rafaela Casarez LPN - Comment: duplicate) * 1729 (New Bag - Provider: Dannielle Jeong RN) Medication Order09/27/646004// albuterol inhaler 2 puff 2 puff, Inhalation, [...] to 2 minutes until target heart rate isachieved or 1mg Atropine is administered bisacodyL (DULCOLAX) suppository 10 mg 10 mg, Rectal, Daily PRN, constipation, Starting on Thu02/18/23 at 0028, Try oral medications firstfor constipation. Try rectal medication if oral meds are ineffective, not tolerated, or not ordered. diphenhydrAMINE (BENADRYL) tablet 25 mg 25 mg, Oral, Every 6 hours PRN, itching, allergies, sleep, Starting on Thu02/18/23 at 0313 * 0404 (Given - Provider: Monique Grande RN) hydrOXYzine (ATARAX) tablet 25 mg 25 mg, Oral, 3 times daily PRN, anxiety, Starting on Thu02/19/23 at 1754 * 2159 (Given - Provider: Dannielle Jeong, JAEL) magnesium [...] CALL PHYSICIAN DO NOT CRUSH OR CHEW. * 0357 (Return to [facility] - Provider: Monique Grande RN) ondansetron (ZOFRAN) [...] PRN, sleep, Starting on Thu02/18/23 at 0028 Order Group 1: Saline lock IV (CANCELED) [...] 0028
Use oral route first, if tolerated.
Medication Order03/28/20220525//20220525/10/2022 heparin (porcine) injection 5,000 Units 5,000 Units, Subcutaneous, Every 8 hours scheduled, First dose on Thu03/29/23 at 2200, Notify physician if patient refuses. * 2110 (Given - Provider: Dannielle Bui RN) * 0509 (Given - Provider: Dannielle Bui RN) * 1400 (Not Given - Provider: Emily Granados LPN - Reason: Patient/family refused) heparin, porcine (PF) injection 500 Units 500 Units, Intravenous, Once, On Thu03/29/23 at 1310, For 1 dose * 1310 (Not Given - Provider: Karon Desai RN - Reason: Patient/family refused - Comment: pt decided she was staying and not leaving AMA) heparin, porcine (PF) injection 500 Units (COMPLETED) 500 Units, Intravenous, Once, On Thu03/30/23 at 1215, For 1 dose * 1240 (Given - Provider: Fawn Valverde RN) insulin glargine (LANTUS) injection 25 Units 25 Units, Subcutaneous, Nightly, First dose on Thu03/29/23 at 2100, Do not mix with other insulins in a syringe. Do NOT hold basal insulin without notifying physician * 2012 (Given - Provider: Dannielle Bui RN) levETIRAcetam (KEPPRA) tablet 1,000 mg 1,000 mg, Oral, 2 times daily, First dose on 03/29/23 at 2100, Do Not Crush or Chew if administering orally due to bitter taste. May be crushed if given via tube. * 2010 (Given - Provider: Dannielle Bui RN) * 0932 (Given - Provider: Emily Granados LPN) levothyroxine (SYNTHROID, LEVOTHROID) tablet 75 mcg 75 mcg, Oral, Daily, First dose on 03/29/23 at 1530, For patients on continuous tube feed: Hold TF from 1 hr before until 1 hr after each dose. TF rate may need adjustment to meet caloric needs. * 1518 (Given - Provider: Roshni Narvaez RN) * 0509 (Given - Provider: Dannielle Bui RN) metoprolol succinate (TOPROL-XL) 24 hr tablet 25 mg 25 mg, Oral, Daily, First dose on 03/29/23 at 1530, DO NOT CRUSH OR CHEW. * 1517 (Given - Provider: Roshni Narvaez RN) * 0932 (Given - Provider: Emily Granados LPN) morphine injection 2 mg (COMPLETED) 2 mg, Intravenous, Once, On 03/29/23 at 1325, For 1 dose * 1419 (Given - Provider: Karon Desai RN) nitroGLYCERIN (NITRO-BID) 2 % ointment 0.5 inch 0.5 inch, Topical, Once, On 03/29/23 at 1325, For 1 dose, Hold for SBP less than 90. * 1325 (Not Given - Provider: Karon Desai RN - Reason: Patient/family refused - Comment: pt reports she still has a headache from the last dose) ondansetron (ZOFRAN) injection 4 mg (COMPLETED) 4 mg, Intravenous, Once, On 03/29/23 at 1325, For 1 dose * 1419 (Given - Provider: Karon Desai, JAEL) pantoprazole (PROTONIX) EC tablet 40 mg 40 mg, Oral, Daily, First dose on 03/30/23 at 0900, DO NOT CRUSH OR CHEW. * 09 (Given - Provider: Emily Granados LPN) pregabalin (LYRICA) capsule 75 mg 75 mg, Oral, 2 times daily, First dose on 03/29/23 at 2100 * 2010 (Given - Provider: Dannielle Bui RN) * 932 (Given - Provider: Emily Granados LPN) QUEtiapine (SEROQUEL) tablet 400 mg 400 mg, Oral, Nightly, First dose on 03/29/23 at 2100, May cause QT interval prolongation. * 2010 (Given - Provider: Dannielle Bui RN) sodium chloride (PF) (NS) flush 5 mL(Linked Group 1) 5 mL, Intravenous, Every 8 hours scheduled, First dose on 03/29/23 at 1530, Saline lock * 1518 (Given - Provider: Roshni Narvaez RN) * 2110 (Given - Provider: Dannielle Bui RN) * 0600 (Given - Provider: Dannielle Bui RN) * 1400 (Not Given - Provider: Emily Granados LPN - Reason: Loss of IV access) Medication Order//10/2022 acetaminophen (TYLENOL) tablet 650 mg 650 mg, Oral, Every 6 hours PRN, mild pain, fever 100.4 F or greater, headaches, Starting on 03/29/23 at 1432 * 1722 (Given - Provider: Roshni Narvaez, JAEL) calcium carbonate (TUMS) chewable tablet 500 mg 500 mg, Oral, Daily PRN, indigestion, heartburn, Starting on 03/29/23 at 2024, Give with Food flu vacc [id number] 6mos up(PF) (FLUZONE QUAD/FLULAVAL QUAD/FLUARIX QUAD) syringe [...] chest pain unrelieved by Nitroglycerin, or recurrent chestpain. DO NOT CRUSH OR CHEW. ondansetron (ZOFRAN) [...] mg, Oral, Nightly PRN, sleep, Starting on 11/5/23 at 1432, To be administered 1 hour after melatonin if still awake. May repeat x 1 dose in 30 minutes if still awake. * 2010 (Given - Provider: Dannielle Bui RN) Order Group 1: Saline lock IV (CANCELED) [...] 1432
Use oral route first, if tolerated.
Medication Order01/15//// atorvastatin (LIPITOR) tablet 40 mg 40 mg, Oral, Nightly, First dose on Thu01/12/24 at 2200 * 2311 (Given - Provider: Donnell Fowler RN) * 232 (Given - Provider: Laura Lechuga RN) busPIRone (BUSPAR) tablet 30 mg 30 mg, Oral, Every 12 hours scheduled, First dose on Thu01/12/24 at 2200 * 0905 (Given - Provider: Laura Levin RN) * 2310 (Given - Provider: Donnell Fowler RN) * 0921 (Given - Provider: Laura Levin RN) * 2324 (Given - Provider: Laura Lechuga, JAEL) * 0918 (Given - Provider: Kvng Portillo) citalopram (CELEXA) tablet 20 mg 20 mg, Oral, Daily, First dose on Thu01/13/24 at 0900 * 0905 (Given - Provider: Laura Levin RN) * 0921 (Given - Provider: Laura Levin RN) * 0919 (Given - Provider: Kvng Portillo) dextrose (GLUTOSE) 40 % gel 15 g 15 g, Oral, Once, On Thu01/18/24 at 0815, For 1 dose, Per Hypoglycemia Protocol: Blood Sugar: 51-69mg/dL. Patient Condition: patient is ALERT, ABLE to swallow/eat and NOT NPO. Intervention: Administer oral glucose gel (15 grams carbohydrate) to swallow * 0815 (Not Given - Provider: Kvng Portillo [...] calcium, ferrous sulfate), Indication: Diabetic Foot Infection * 0614 (Given - Provider: Gely Rincon LPN) * 2311 (Given - Provider: Donnell Fowler RN) * 0600 (Given - Provider: Donnell Fowler RN) * 2324 (Given - Provider: Laura Lechuga, JAEL) * 0616 (Given - Provider: Laura Lechuga RN) heparin (porcine) injection 5,000 Units 5,000 Units, Subcutaneous, Every 8 hours scheduled, First dose on Thu01/18/24 at 0900, Notify physician if patient refuses. * 1001 (Given - Provider: vKng Portillo) * 1400 (Due) heparin, porcine (PF) injection 500 Units (COMPLETED) 500 Units, Intravenous, Once, On Thu01/18/24 at 1200, For 1 dose * 1227 (Given - Provider: Le Carrillo RN) levETIRAcetam (KEPPRA) tablet 1,000 mg 1,000 mg, Oral, 2 times daily, First dose on Thu01/14/24 at 1100 * 0905 (Given - Provider: Laura Levin RN) * 2311 (Given - Provider: Donnell Fowler RN) * 0920 (Given - Provider: Laura Levin RN) * 2324 (Given - Provider: Laura Lechuga, JAEL) * 0914 (Given - Provider: Kvng Portillo) metoprolol succinate (TOPROL-XL) 24 hr tablet 25 mg 25 mg, Oral, Daily, First dose (after last modification) on Thu01/18/24 at 0900, Hold if sbp<100DO NOT CRUSH OR CHEW. * 0913 (Given - Provider: Kvng Portillo) metoprolol succinate (TOPROL-XL) 24 hr tablet 50 mg (CANCELED) 50 mg, Oral, Daily, First dose on Thu01/14/24 at 1345, DO NOT CRUSH OR CHEW. * 0905 (Given - Provider: Laura Levin RN) * 1200 (Not Given - Provider: Laura Levin RN - Reason: Contraindicated) pregabalin (LYRICA) capsule 150 mg 150 mg, Oral, Nightly, First dose on Thu01/12/24 at 2300 * 2311 (Given - Provider: Donnell Fowler RN) * 2324 (Given - Provider: Laura Lechuga, JAEL) QUEtiapine (SEROQUEL) tablet 800 mg 800 mg, Oral, Nightly, First dose on Thu01/12/24 at 2300, May cause QT interval prolongation. * 2311 (Given - Provider: Donnell Fowler RN) * 2324 (Given - Provider: Laura Lechuga, JAEL) sodium chloride (PF) (NS) flush 5 mL(Linked Group 1) 5 mL, Intravenous, Every 8 hours scheduled, First dose on Thu01/12/24 at 2200, Saline lock * 0600 (Given - Provider: Gely Rincon LPN) * 1400 (Canceled Entry - Provider: Laura Levin RN) * 2200 (Given - Provider: Donnell Fowler RN) * 0600 (Given - Provider: Donnell Fowler RN) * 1400 (Canceled Entry - Provider: Laura Levin RN) * 2200 (Given - Provider: Laura Lechuga, RN) * 0617 (Given - Provider: Laura Lechuga, RN) * 1400 (Due) sodium chloride 0.9% (NS) bolus 500 mL (COMPLETED) 500 mL, Intravenous, at 1,875 mL/hr, Once, On Thu01/16/24 at 0630, For 1 dose * 0629 (New Bag - Provider: Gely Rincon LPN) tiZANidine (ZANAFLEX) tablet 8 mg 8 mg, Oral, Nightly, First dose on Thu01/12/24 at 2300 * 2311 (Given - Provider: Donnell Fowler RN) * 2324 (Given - Provider: Laura Lechuga RN) Medication Order// sodium chloride 0.9% (NS) (CANCELED) 100 mL/hr, Intravenous, Continuous, Starting on Thu01/12/24 at 1700 * 0412 (New Bag - Provider: Gely Rincon LPN) * 0712 (New Bag - Provider: Gely Rincon LPN) * 1042 (Stopped - Provider: Laura Levin RN) * 1047 (New Bag - Provider: Laura Levin RN) [...] of insulin per specified grams of carbs) Medication Order// albuterol (PROVENTIL) 2.5 mg /3 mL (0.083 %) nebulizer solution 2.5 mg 2.5 mg, Nebulization, Every 6 hours PRN (RT), wheezing, shortness of breath, Starting on Thu01/12/24 at 211 hydrALAZINE (APRESOLINE) injection 10 mg 10 mg, Intravenous, Every 6 hours PRN, sbp>180, Starting on Thu01/13/24 at 1831 hydrOXYzine (ATARAX) tablet 50 mg 50 mg, Oral, 3 times daily PRN, anxiety, Starting on Thu01/12/24 at 211 melatonin Tab 5 mg 5 mg, Oral, Nightly PRN, Sleep, Starting on Thu01/12/24 at 182, If still awake in 1 hour proceed to trazodone (Desyrel) * 2036 (Given - Provider: Donnell Fowler RN) [...] 2 minutes until respiratory rate is 10 orgreater. naloxone (NARCAN) injection 0.4 mg(Linked Group 2) 0.4 mg, Intravenous, As needed, opioid reversal, patient is pulseless, breathless, and unresponsive, Starting on Thu01/12/24 at 182, Call a code first, then administer naloxone dose undiluted IV Push over 30 seconds. ondansetron (ZOFRAN) injection 4 mg(Linked Group 3) 4 mg, Intravenous, Every 6 hours PRN, nausea, vomiting, Starting on Thu01/12/24 at 182, Use oral route first, if tolerated. ondansetron (ZOFRAN-ODT) disintegrating tablet 4 mg(Linked Group 3) 4 mg, Oral, Every 6 hours PRN, nausea, vomiting, Starting on Thu01/12/24 at 182, Use oral route first, if tolerated. Formulation requires tablet remain in sealed package until immediately prior to dose being administered. oxyCODONE-acetaminophen (PERCOCET) 5-325 mg per tablet 1 tablet 1 tablet, Oral, Every 6 hours PRN, moderate to severe pain, Starting on Thu01/12/24 at 1823 * 1216 (Given - Provider: Laura Levin, JAEL) * 7 (Given - Provider: Donnell Fowler RN) * 0504 (Given - Provider: Donnell Fowler RN) * 1225 (Given - Provider: Laura Levin RN) * 182 (Given - Provider: Laura Levin RN) * 0049 (Given - Provider: Laura Lechuga RN) * 0856 (Given - Provider: Pippa Quiles RN) senna [...] dose in 30 minutes if still awake. Order Group 1: Saline lock IV (CANCELED) [...] 2 minutes until respiratory rate is 10 orgreater. And Notify physician (CANCELED) STAT, Until discontinued, [...] 1823, Use oral route first, if tolerated. Medication Order//03/2024 atorvastatin (LIPITOR) tablet 40 mg 40 mg, Oral, Nightly, First dose on Thu03/25/24 at 0400 * 2036 (Given - Provider: Ruby Lujan, JAEL) * 2122 (Given - Provider: Dannielle Jeong RN) busPIRone (BUSPAR) tablet 30 mg 30 mg, Oral, 2 times daily, First dose on Thu03/25/24 at 0900 * 09 (Given - Provider: Nicolette Coffey, JAEL) * 2036 (Given - Provider: Ruby Lujan, RN) * 08 (Given - Provider: Nicolette Coffey, JAEL) * 2123 (Given - Provider: Dannielle Jeong, RN) * 0857 (Given - Provider: Ifeoma Waterman, RN) cefadroxil (DURICEF) capsule 500 mg 500 mg, Oral, Every 12 hours scheduled, First dose on Thu03/30/24 at 1500, Indication: Skin/Soft Tissue Infection * 09 (Given - Provider: Nicolette Coffey RN) * 2036 (Given - Provider: Ruby Lujan, JAEL) * 0834 (Given - Provider: Nicolette Coffey, JAEL) * 2124 (Given - Provider: Dannielle Jeong, RN) * 1130 (Given - Provider: Ifeoma Waterman, RN) citalopram (CELEXA) tablet 40 mg 40 mg, Oral, Daily, First dose on Thu03/25/24 at 0900 * 0905 (Given - Provider: Nicolette Coffey RN) * 0828 (Given - Provider: Nicolette Coffey, JAEL) * 0857 (Given - Provider: Ifeoma Waterman, JAEL) enoxaparin (LOVENOX) syringe 40 mg 40 mg, Subcutaneous, 2 times daily, First dose (after last modification) on Thu03/30/24 at 1000, Administer in abdomen unless otherwise directed by prescriber. Notify physician if patient refuses., Indication: VTE Prophylaxis * 0905 (Given - Provider: Nicolette Coffey RN) * 2039 (Given - Provider: Ruby Lujan, JAEL) * 0829 (Given - Provider: Nicolette Coffey, JAEL) * 2125 (Given - Provider: Dannielle Jeong, RN) * 0856 (Given - Provider: Ifeoma Waterman, JAEL) heparin, porcine (PF) injection 500 Units (COMPLETED) 500 Units, Intravenous, Once, On Thu04/04/24 at 1615, For 1 dose * 1525 (Given - Provider: Ifeoma Waterman, JAEL) insulin glargine (LANTUS) injection 30 Units (CANCELED) 30 Units, Subcutaneous, Nightly, First dose (after last modification) on Thu03/30/24 at 2100, If patient NPO and BG LESS than 100 before procedure, administer half (rounded up to nearest unit) of theglargine insulin (LANTUS) dose; if BG is GREATER than 100, administer the full dose unless otherwise instructed by ordering physician Do not mix with other insulins in a syringe. Do NOT hold basal insulin without notifying physician * 2041 (Given - Provider: Ruby Lujan RN) [...] NOT hold basal insulin without notifying physician * 2124 (Given - Provider: Dannielle Jeong, JAEL) insulin lispro (AdmeLOG,HumaLOG) injection 0-15 Units(Linked Group 1) 0-15 Units, Subcutaneous, At bedtime, First dose on Thu03/27/24 at 2100, IF initial POC glucose is greater than 250, administer insulin as directed and re- check POC glucose no sooner than 2 hours [...] be automatically calculated to be of the da ytime scale), Dose Reduction Threshold (at meals) for POC Blood Glucose less than or equal to: 80, For Downtime Calculator, use: Insulin SC NIGHTtime * 2099 (Given - Provider: Ruby Lujan, JAEL) * 2131 (Not Given - Provider: Dannielle Jeong, JAEL - Reason: Order parameters not met) insulin lispro (AdmeLOG,HumaLOG) injection 0-30 Units 0-30 Units, Subcutaneous, 3 times daily before meals, First dose on Thu03/27/24 at 1130, * Dose should be given EITHER: No sooner than 10-15 minutes BEFORE a meal ( Specific Prandial Doses or NOPrandial Dose - Corrective Scale ONLY ) - OR - Immediately AFTER meal completed ( Carb Counting Ratio ), Prandial Insulin Dosing Method: NO Prandial Dose - Corrective Scale ONLY, Corrective Insulin Regimen (select desired scale to cover BG result): HIGH Resistance Scale, Dose Reduction Threshold(at meals) for POC Blood Glucose less than or equal to: 80, For Downtime Calculator, use: Insulin SC MEALtime PREprandial * 0905 (Given - Provider: Nicolette Coffey RN) * 1226 (Given - Provider: Nicolette Coffey RN) * 1630 (Not Given - Provider: Nicolette Coffey RN - Reason: Contraindicated) * 0829 (Given - Provider: Nicolette Coffey RN) * 1225 (Given - Provider: Nicolette Coffey RN) * 1630 (Not Given - Provider: Nicolette Coffey RN - Reason: Contraindicated) * 0858 (Given - Provider: Ifeoma Waterman, JAEL) * 1130 (Given - Provider: Ifeoma Waterman RN - Comment: BS from pump) lamoTRIgine (LAMICTAL) tablet 25 mg 25 mg, Oral, 2 times daily, First dose on Thu03/25/24 at 0900 * 0905 (Given - Provider: Nicolette Coffey RN) * 203 (Given - Provider: Ruby Lujan RN) * 0828 (Given - Provider: Nicolette Coffey RN) * 2127 (Given - Provider: Dannielle Jeong RN) * 0857 (Given - Provider: Ifeoma Waterman, JAEL) [...] may need adjusted to meet caloric needs. * 0526 (Given - Provider: Ruby Lujan RN) * 0609 (Given - Provider: Ruby Lujan, RN) * 0637 (Given - Provider: Dannielle Jeong, RN) metoprolol tartrate (LOPRESSOR) tablet 25 mg 25 mg, Oral, 2 times daily, First dose on Thu04/01/24 at 2100 * 09 (Given - Provider: Nicolette Coffey, RN) * 2037 (Given - Provider: Ruby Lujan RN) * 28 (Given - Provider: Nicolette Coffey, JAEL) * 2123 (Given - Provider: Dannielle Jeong, RN) * 0857 (Given - Provider: Ifeoma Wtaerman, RN) nicotine (NICODERM CQ) 14 mg/24 hr 1 patch 1 patch, Transdermal, Administer over 24 Hours, Daily, First dose (after last modification) on Thu03/30/24 at 2130, U/P Listed Hazardous Drug. Waste Must Be Disposed in [employer] Waste Container * 0904 (Patch Applied - Provider: Nicolette Coffey RN) * 0859 (Patch Removed - Provider: Nicolette Coffey, JAEL) * 0900 (Not Given - Provider: Nicolette Coffey RN - Reason: Patient/family refused) * 0857 (Not Given - Provider: Ifeoma Waterman RN - Reason: Patient/family refused) nortriptyline (PAMELOR) capsule 25 mg 25 mg, Oral, Nightly, First dose on Thu03/25/24 at 2100, May cause QT interval prolongation. * 2036 (Given - Provider: Ruby Lujan RN) * 2124 (Given - Provider: Dannielle Jeong, JAEL) pantoprazole (PROTONIX) EC tablet 40 mg 40 mg, Oral, Every morning before breakfast, First dose on Thu03/25/24 at 0730, DO NOT CRUSH OR CHEW. * 0905 (Given - Provider: Nicolette Coffey RN) * 0849 (Given - Provider: Nicolette Coffey, JAEL) * 0857 (Given - Provider: Ifeoma Waterman, JAEL) pregabalin (LYRICA) capsule 75 mg 75 mg, Oral, 2 times daily, First dose on Thu03/25/24 at 0400 * 0905 (Given - Provider: Nicolette Coffey, JAEL) * 2036 (Given - Provider: Ruby Lujan RN) * 0828 (Given - Provider: Nicolette Coffey, JAEL) * 2122 (Given - Provider: Dannielle Jeong, RN) * 0857 (Given - Provider: Ifeoma Waterman, RN) QUEtiapine (SEROQUEL) tablet 800 mg 800 mg, Oral, Nightly, First dose on Thu03/25/24 at 0400, May cause QT interval prolongation. * 2036 (Given - Provider: Ruby Lujan RN) * 2124 (Given - Provider: Dannielle Jeong, RN) sodium chloride (PF) (NS) flush 5 mL(Linked Group 2) 5 mL, Intravenous, Every 8 hours scheduled, First dose on Thu03/25/24 at 0600, Saline lock * 0527 (Given - Provider: Ruby Lujan RN) * 1400 (Canceled Entry - Provider: Nicolette Coffey, JAEL) * 2200 (Given - Provider: Ruby Lujan RN) * 0600 (Given - Provider: Ruby Lujan RN) * 1400 (Canceled Entry - Provider: Nicolette Coffey RN) * 212 (Given - Provider: Dannielle Jeong, JAEL) * 0600 (Not Given - Provider: Dannielle Jeong RN - Reason: Order parameters not met) * 1400 (Canceled Entry - Provider: Ifeoma Waterman, JAEL - Comment: no peripherial line) timolol (TIMOPTIC) 0.5 % ophthalmic solution 1 drop 1 drop, Left Eye, Daily, First dose on Thu03/25/24 at 0900 * 0910 (Given - Provider: Nicolette Coffey RN) * 0829 (Given - Provider: Nicolette Coffey, JAEL) * 0858 (Given - Provider: Ifeoma Waterman, JAEL) tiZANidine (ZANAFLEX) tablet 4 mg 4 mg, Oral, Nightly, First dose (after last modification) on Thu03/25/24 at 0400 * 2152 (Given - Provider: Ruby Lujan, JAEL) * 2123 (Given - Provider: Dannielle Jeong, JAEL) Medication Order//03/2024 albuterol (PROVENTIL) 2.5 mg /3 mL (0.083 [...] 2 minutes until respiratory rate is 10 orgreater. naloxone (NARCAN) injection 0.4 mg(Linked Group 3) [...] severe pain, Starting on Thu03/25/24 at 0134 * 0441 (Given - Provider: Ruby Lujan RN) * 0904 (Given - Provider: Nicolette Coffey, JAEL) * 1313 (Given - Provider: Socorro Zepeda, JAEL) * 1721 (Given - Provider: Nicolette Coffey, JAEL) * 2152 (Given - Provider: Ruby Lujan RN) * 0828 (Given - Provider: Nicolette oCffey, JAEL) * 1244 (Given - Provider: Nicolette Coffey, JAEL) * 1757 (Given - Provider: Nicolette Coffey, JAEL) * 2137 (Given - Provider: Dannielle Jeong RN) * 0422 (Given - Provider: Dannielle Jeong, RN) * 0857 (Given - Provider: Ifeoma Waterman, RN) * 1335 (Given - Provider: Ifeoma Waterman, JAEL) sodium chloride (PF) (NS) flush 5 mL(Linked Group 4) 5 mL, Intravenous, As needed, line care, Starting on Danelle 03/24/24 at 2020 sodium chloride (PF) (NS) flush 5 mL(Linked Group 2) 5 mL, Intravenous, As needed, line care, Starting on Thu03/25/24 at 0134 * 0859 (Given - Provider: Ifeoma Waterman, JAEL) [...] PRN, sleep, Starting on Thu03/25/24 at 0134 * 2137 (Given - Provider: Dannielle Jeong, JAEL) Order Group 1: insulin lispro (AdmeLOG,HumaLOG) injection 0-15 UnitsJump to med 0-15 Units, Subcutaneous, At bedtime, First dose on 03/27/24 at 2100, IF initial POC glucose is greater than 250, administer insulin as directed and re- check POC glucose no sooner than 2 hours [...] be automatically calculated to be of the da ytime scale), Dose Reduction Threshold (at meals) for POC Blood Glucose less than or equal to: 80, For Downtime Calculator, use: Insulin SC NIGHTtime And Notify physician (CANCELED) Routine, Until discontinued, Starting on Thu03/27/24 at 1016, Until Specified, Other: IF HS POC Glucose RE-CHECK Greater than 250, If initial HS POC glucose is greater than 250, administer insulin asdirected and re-check POC glucose no sooner than [...] 2 minutes until respiratory rate is 10 orgreater. And Notify physician (CANCELED) STAT, Until discontinued, [...] line care, Starting on Thu03/24/24 at 2019 And sodium chloride 0.9% (NS)Jump to med 0-150 mL/hr, Intravenous, As needed, To flush line after IV infusions when no maintenance IV ordered or a compatibility issue. Infuse 20ml at the same rate as the secondary infusion, Starting on Thu03/24/24 at 2019, Run as Primary IV. NOT intended for KVO. Medication Order//10/2023 atorvastatin (LIPITOR) tablet 40 mg 40 mg, Oral, Nightly, First dose (after last modification) on Thu04/27/24 at 0200 * 0242 (Given - Provider: Kyrie Gonzalez RN) * 2020 (Given - Provider: Kinza Plascencia LPN) * 2106 (Given - Provider: Aleyda Villegas, JAEL) busPIRone (BUSPAR) tablet 30 mg 30 mg, Oral, 2 times daily, First dose (after last modification) on Thu04/27/24 at 0900 * 0803 (Given - Provider: Zuly Benjamin RN) * 2021 (Given - Provider: Kinza Plascencia LPN) * 825 (Given - Provider: Yvette Canchola, JAEL) * 2107 (Given - Provider: Aleyda Villegas, JEAL) * 830 (Given - Provider: Yvette Canchola, JAEL) ceFAZolin (ANCEF) IVPB 2 g (premix) 2,000 mg, Intravenous, at 100 mL/hr, Every 8 hours, First dose on Thu04/27/24 at 0600, Indication: Community Acquired Cellulitis * 0546 (New Bag - Provider: Kyrie Gonzalez RN) * 0742 (Stopped - Provider: Zuly Benjamin RN) * 1324 (New Bag - Provider: Zuly Benjamin RN) * 1453 (Stopped - Provider: Zuly Benjamin RN) * 2138 (New Bag - Provider: Kinza Plascencia LPN) * 0614 (New Bag - Provider: Kinza Plascencia LPN) * 0644 (Stopped - Provider: Hayde Boyer, JAEL) * 1429 (New Bag - Provider: Yvette Canchola, JAEL) * 2114 (New Bag - Provider: Aleyda Villegas, JAEL) * 0540 (New Bag - Provider: Aleyda Villegas, JAEL) * 1333 (Stopped - Provider: Hayde Boyer RN) * 1342 (New Bag - Provider: Yvette Canchola RN) * 1451 (Stopped - Provider: Yvette Canchola RN) enoxaparin (LOVENOX) syringe 40 mg 40 mg, Subcutaneous, 2 times daily, First dose on Thu04/27/24 at 0900, Administer in abdomen unlessotherwise directed by prescriber. Notify physician if patient refuses., Indication: VTE Prophylaxis * 0804 (Given - Provider: Zuly Benjamin RN) * 2023 (Given - Provider: Kinza Plascencia LPN) * 0826 (Given - Provider: Yvette Canchola RN) * 2106 (Given - Provider: Aleyda Villegas RN) * 0835 (Not Given - Provider: Yvette Canchola RN - Reason: Patient/family refused) heparin, porcine (PF) injection 500 Units (COMPLETED) 500 Units, Intravenous, Once, On Thu04/29/24 at 1500, For 1 dose, De-access port * 1452 (Given - Provider: Yvette Canchola RN) insulin glargine (LANTUS) injection 35 Units (CANCELED) 35 Units, Subcutaneous, Nightly, First dose (after last modification) on Thu04/27/24 at 0300, If patient NPO and BG LESS than 100 before procedure, administer half (rounded up to nearest unit) of theglargine insulin (LANTUS) dose; if BG is GREATER than 100, administer the full dose unless otherwise instructed by ordering physician Do not mix with other insulins in a syringe. Do NOT hold basal insulin without notifying physician * 240 (Given - Provider: Kyrie Gonzalez, JAEL) insulin glargine (LANTUS) injection 45 Units (CANCELED) 45 Units, Subcutaneous, Nightly, First dose (after last modification) on Thu04/27/24 at 2100, If patient NPO and BG LESS than 100 before procedure, administer half (rounded up to nearest unit) of theglargine insulin (LANTUS) dose; if BG is GREATER than 100, administer the full dose unless otherwise instructed by ordering physician Do not mix with other insulins in a syringe. Do NOT hold basal insulin without notifying physician * 2024 (Given - Provider: Kinza Plascencia LPN) insulin glargine (LANTUS) injection 60 Units 60 Units, Subcutaneous, Nightly, First dose (after last modification) on Thu04/28/24 at 2100, If patient NPO and BG LESS than 100 before procedure, administer half (rounded up to nearest unit) of theglargine insulin (LANTUS) dose; if BG is GREATER than 100, administer the full dose unless otherwise instructed by ordering physician Do not mix with other insulins in a syringe. Do NOT hold basal insulin without notifying physician * 2107 (Given - Provider: Aleyda Villegas RN) [...] Nightly Insulin Dose Corrective Scale will be automaticallycalculated to be of the daytime scale), Dose Reduction Threshold (at meals) for POC Blood Glucose less than or equal to: 80, For Downtime Calculator, use: Insulin SC NIGHTtime * 241 (Given - Provider: Kyrie Gonzalez RN) * 2024 (Not Given - Provider: Kinza Plascencia LPN - Reason: Order parameters not met) * 2120 (Given - Provider: Aleyda Villegas RN) insulin lispro (AdmeLOG,HumaLOG) injection 0-30 Units 0-30 Units, Subcutaneous, 3 times daily before meals, First dose (after last modification) on Thu04/27/24 at 0730, * Dose should be given EITHER: No sooner than 10-15 minutes BEFORE a meal ( Specific Prandial Doses or NO Prandial Dose - Corrective Scale ONLY ) - OR - Immediately AFTER meal c ompleted ( Carb Counting Ratio ), Prandial Insulin Dosing Method: NO Prandial Dose - Corrective Scale ONLY, Corrective Insulin Regimen (select desired scale to cover BG result): HIGH Resistance Scale, Dose Reduction Threshold (at meals) for POC Blood Glucose less than or equal to: 80, For Downtime Calculator, use: Insulin SC MEALtime PREprandial * 0804 (Given - Provider: Zuly Benjamin RN) * 1137 (Given - Provider: Zuly Benjamin RN) * 1623 (Given - Provider: Zuly Benjamin RN) * 0827 (Given - Provider: Yvette Canchola, JAEL) * 1218 (Given - Provider: Yvette Canchola RN) * 1611 (Given - Provider: Yvette Canchola RN) * 0832 (Given - Provider: Yvette Canchola RN) * 1144 (Given - Provider: Yvette Canchola, JAEL) insulin lispro (AdmeLOG,HumaLOG) injection 10 Units (COMPLETED) 10 Units, Subcutaneous, Once, On Thu04/28/24 at 0630, For 1 dose * 0615 (Given - Provider: Kinza Plascencia LPN - Comment: BG of 408) lamoTRIgine (LAMICTAL) tablet 25 mg 25 mg, Oral, 2 times daily, First dose (after last modification) on Thu04/27/24 at 0900 * 0804 (Given - Provider: Zuly Benjamin RN) * 2021 (Given - Provider: Kinza Plascencia LPN) * 08 (Given - Provider: Yvette Canchola RN) * 2107 (Given - Provider: Aleyda Villegas RN) * 08 (Given - Provider: Yvette Canchola RN) levothyroxine [...] may need adjusted to meet caloric needs. * 0544 (Given - Provider: Kyrie Gonzalez RN) * 0614 (Given - Provider: Kinza Plascencia LPN) * 0541 (Given - Provider: Aleyda Villegas RN) metoprolol tartrate (LOPRESSOR) tablet 25 mg 25 mg, Oral, 2 times daily, First dose (after last modification) on Thu04/27/24 at 0900 * 0804 (Given - Provider: Zuly Benjamin RN) * 2021 (Given - Provider: Kinza Plascencia LPN) * 08 (Not Given - Provider: Yvette Canchola RN - Reason: Order parameters not met) * 2107 (Given - Provider: Aleyda Villegas RN) * 830 (Given - Provider: Yvette Canchola RN) nicotine (NICODERM CQ) 14 mg/24 hr 1 patch 1 patch, Transdermal, Administer over 24 Hours, Daily, First dose (after last modification) on Thu04/27/24 at 0900, U/P Listed Hazardous Drug. Waste Must Be Disposed in [employer] Waste Container * 0804 (Patch Applied - Provider: Zuly Benjamin RN) * 0804 (Not Given - Provider: Yvette Canchola RN - Reason: Other - Comment: No patch on) * 0825 (Not Given - Provider: Yvette Canchola RN - Reason: Patient/family refused) * 0836 (Not Given - Provider: Yvette Canchola RN - Reason: Patient/family refused) nortriptyline (PAMELOR) capsule 25 mg 25 mg, Oral, Nightly, First dose (after last modification) on Thu04/27/24 at 0300, May cause QT interval prolongation. * 0241 (Given - Provider: Kyrie Gonzalez RN) * 2020 (Given - Provider: Kinza Plascencia LPN) * 2119 (Given - Provider: Aleyda Villegas RN) pantoprazole (PROTONIX) EC tablet 40 mg 40 mg, Oral, Every morning before breakfast, First dose (after last modification) on Thu04/27/24 [id number], DO NOT CRUSH OR CHEW. * 0804 (Given - Provider: Zuly Benjamin RN) * 0826 (Given - Provider: Yvette Canchola RN) * 0831 (Given - Provider: Yvette Canchola RN) pregabalin (LYRICA) capsule 75 mg 75 mg, Oral, 2 times daily, First dose (after last modification) on Thu04/27/24 at 0900 * 0803 (Given - Provider: Zuly Benjamin RN) * 2021 (Given - Provider: Kinza Plascencia LPN) * 0826 (Given - Provider: Yvette Canchola RN) * 2106 (Given - Provider: Aleyda Villegas RN) * 0831 (Given - Provider: Yvette Canchola RN) QUEtiapine (SEROQUEL) tablet 800 mg 800 mg, Oral, Nightly, First dose (after last modification) on Thu04/27/24 at 0200, May cause QT interval prolongation. * 0241 (Given - Provider: Kyrie Gonzalez RN) * 2021 (Given - Provider: Kinza Plascencia LPN) * 2106 (Given - Provider: Aleyda Villegas, JAEL) senna (SENOKOT) tablet 17.2 mg 17.2 mg (2 tablet), Oral, Nightly, First dose on Thu04/27/24 at 0200, For 5 days * 0241 (Given - Provider: Kyrie Gonzalez RN) * 2020 (Given - Provider: Kinza Plascencia LPN) * 2100 (Not Given - Provider: Aleyda Villegas RN - Reason: Patient/family refused) timolol (TIMOPTIC) 0.5 % ophthalmic solution 1 drop 1 drop, Left Eye, Daily, First dose (after last modification) on Thu04/27/24 at 0900 * 1200 (Not Given - Provider: Zuly Benjamin RN - Reason: Other) * 0900 (Not Given - Provider: Yvette Canchola RN - Reason: Patient/family refused) * 0836 (Not Given - Provider: Yvette Canchola RN - Reason: Other) tiZANidine (ZANAFLEX) tablet 4 mg 4 mg, Oral, Nightly, First dose (after last modification) on Thu04/27/24 at 0200 * 0241 (Given - Provider: Kyrie Gonzalez RN) * 2021 (Given - Provider: Kinza Plascencia LPN) * 2107 (Given - Provider: Aleyda Villegas RN) Medication Order// sodium chloride 0.9% (NS) () 100 mL/hr, Intravenous, Continuous, Starting on Thu04/26/24 at 2350, For 10 hours * 0306 (New Bag - Provider: Kyrie Gonzalez RN) * 0900 (Stopped - Provider: Zuly Benjamin, JAEL) Medication Order//[id number]/10/2023 albuterol (PROVENTIL) 2.5 mg /3 mL (0.083 %) nebulizer solution 2.5 mg 2.5 mg, Nebulization, Every 6 hours PRN (RT), wheezing, shortness of breath, Starting on Thu04/27/24 at 0109 hydrALAZINE (APRESOLINE) injection 10 mg 10 mg, Intravenous, Every 6 hours PRN, SBP > 180 or DBP > 100, hold for HR >100, Starting on Thu04/27/24 at 0109 * 0426 (Given - Provider: Kyrie Gonzalez RN) [...] 2 minutes until respiratory rate is 10 orgreater. naloxone (NARCAN) injection 0.4 mg(Linked Group 2) 0.4 mg, Intravenous, As needed, opioid reversal, patient is pulseless, breathless, and unresponsive, Starting on Thu04/27/24 at 0109, Call a code first, then administer naloxone dose undiluted IV Push over 30 seconds. ondansetron (ZOFRAN) injection 4 mg 4 mg, Intravenous, Every 6 hours PRN, nausea, vomiting, Starting on Thu04/27/24 at 010 * 0310 (Given - Provider: Kyrie Gonzalez RN) oxyCODONE-acetaminophen (PERCOCET) 5-325 mg per tablet 1 tablet 1 tablet, Oral, Every 4 hours PRN, moderate to severe pain, Starting on Thu04/27/24 at 0109 * 0241 (Given - Provider: Kyrie Gonzalez RN) * 0926 (Given - Provider: Zuly Benjamin RN) * 1703 (Given - Provider: Zuly Benjamin RN) * 2134 (Given - Provider: Kinza Plascencia LPN) * 0614 (Given - Provider: Kinza Plascencia LPN) * 1032 (Given - Provider: Shawna Telles RN) * 1432 (Given - Provider: Yvette Canchola, JAEL) * 1941 (Given - Provider: Aleyda Villegas RN) * 2353 (Given - Provider: Aleyda Villegas RN) * 0415 (Given - Provider: Aleyda Villegas RN) * 0831 (Given - Provider: Yvette Canchola, JAEL) * 1341 (Given - Provider: Yvette Canchola, JAEL) traZODone (DESYREL) tablet 50 mg 50 mg, Oral, Nightly PRN, sleep, Starting on Thu04/26/24 at 2343, May repeat times 1 in 30 minutes if still awake. * 0241 (Given - Provider: Kyrie Gonzalez RN) Medication Order//10/2023 sodium chloride 0.9 % (NS) infusion - ADS Override Pull (COMPLETED) Starting on Thu04/29/24 at 1345, For 1 dose, YVETTE CANCHOLA: cabinet override * 1350 (New Bag - Provider: Yvette Canchola, RN) * 1548 (Stopped - Provider: Yvette Canchola, RN) Order Group 1: insulin lispro (AdmeLOG,HumaLOG) injection [...] Nightly Insulin Dose Corrective Scale will be automaticallycalculated to be of the daytime scale), Dose Reduction Threshold (at meals) for POC Blood Glucose less than or equal to: 80, For Downtime Calculator, use: Insulin SC NIGHTtime And Notify physician (CANCELED) Routine, Until discontinued, Starting on Thu04/27/24 at 0110, Until Specified, Other: IF HS POC Glucose RE-CHECK Greater than 250, If initial HS POC glucose is greater than 250, administer insulin asdirected and re-check POC glucose no sooner than [...] 2 minutes until respiratory rate is 10 orgreater. And Notify physician (CANCELED) STAT, Until discontinued, [...] dose undiluted IV Push over 30 seconds. Medication Order// atorvastatin (LIPITOR) tablet 80 mg 80 mg, oral, Daily, First dose on 12/03/24 at 0900, Look-alike/sound-alike medication - verify indication for use. * 0753 (Given - Provider: Uzma Mcpherson RN) * 0906 (Given - Provider: Uzma Mcpherson, RN) * 0835 (Given - Provider: Rafael Chavira, RN) heparin (porcine) injection 5,000 Units 5,000 Units, subcutaneous, Every 12 hours scheduled, First dose on 12/03/24 at 1800, Notify prescriber if INR greater than 1.9, hemoglobin less than 10 mg/dL, aPTT greater than 40 seconds, and/or platelet count less than 100,000/mm Look-alike/sound-alike medication - verify indication for use. Observe for bleeding. * 2219 (Given - Provider: Shawna Carrington RN) * 0906 (Given - Provider: Uzma Mcpherson RN) * 2128 (Given - Provider: Ellen Valera RN) * 0835 (Given - Provider: Rafael Chavira, RN) [...] pens stable 28 days at room temperature. * 1739 (Given - Provider: Uzma Mcpherson RN) insulin glargine (LANTUS, SEMGLEE) injection pen 20 Units (CANCELED) 20 Units, subcutaneous, 2 times daily, First dose (after last modification) on Thu12/04/24 at 0900,Look-alike/sound-alike medication - verify indication for use. Prime with 2 units of insulin prior to administration. Basal (long acting) insulin for subcutaneous administration only. Do not mix withany other insulin. Pre-filled pens stable 28 days at room temperature. * 0932 (Given - Provider: Uzma Mcpherson RN) * 2128 (Given - Provider: Ellen Valera, JAEL) insulin glargine (LANTUS, SEMGLEE) injection pen 25 Units 25 Units, subcutaneous, 2 times daily, First dose (after last modification) on Thu12/05/24 at 0900,Look-alike/sound-alike medication - verify indication for use. Prime with 2 units of insulin prior to administration. Basal (long acting) insulin for subcutaneous administration only. Do not mix withany other insulin. Pre-filled pens stable 28 days at room temperature. * 0835 (Given - Provider: Rafael Chavira RN) insulin [...] 4 hours when NPO. Notify prescriber if bloodglucose greater than 400 mg/dL. Look-alike/sound-alike medication - verify indication for use. Prime with 2 units of insulin prior to administration. Prandial/supplemental Insulin. Pre-filled pens stable 28 days at room temperature. Insulin lispro should be administered within 15 minutes before or immediately after a meal. * 2212 (Given - Provider: Shawna Carrington RN) * 2128 (Given - Provider: Ellen Valera, JAEL) insulin lispro (HumaLOG) injection 1-5 Units (CANCELED) 1-5 Units, subcutaneous, 3 times daily with meals, First dose on 12/03/24 at 1700, Please give 1units per 15 grams of carbohydrates up to [...] minutes before or immediately after a meal. * 2016 (Given - Provider: Shawna Carrington RN) * 0800 (Not Given - Provider: Uzma Mcpherson RN - Reason: Other - Comment: pt did not eat) * 1232 (Given - Provider: Uzma Mcpherson RN) insulin lispro (HumaLOG) injection 1-5 Units (CANCELED) 1-5 Units, subcutaneous, 3 times daily with meals, First dose on 12/03/24 at 1700, Daytime hyperglycemia dosing. For blood glucose 151-200 mg/dL, give 1 unit. For blood glucose 201-250 mg/dL, give2 units. For blood glucose 251-300 mg/dL, give [...] minutes before or immediately after a meal. * 1700 (Not Given - Provider: Uzma Mcpherson RN - Reason: Order parameters not met - Comment: bs 114) * 1113 (Given - Provider: Uzma Mcpherson, RN) * 1231 (Given - Provider: Uzma Mcpherson, RN) insulin [...] minutes before or immediately after a meal. * 1608 (Given - Provider: Uzma Mcpherson RN) * 0800 (Not Given - Provider: Rafael Chavira RN - Reason: Other - Comment: Pt skipping breakfast) * 1344 (Given - Provider: Shi Saldivar, RN) * 1700 (Due) insulin lispro (HumaLOG) injection 2-10 Units [...] hours when NPO. Notify prescriber if blood glucosegreater than 400 mg/dL. Look-alike/sound-alike medication - verify indication for use. Prime with 2units of insulin prior to administration. Prandial/supplemental Insulin. Pre-filled pens stable 28 days at room temperature. Insulin lispro should be administered within 15 minutes before or immediately after a meal. * 1608 (Given - Provider: Uzma Mcpherson, RN) * 0836 (Given - Provider: Rafael Chavira, RN) * 1343 (Given - Provider: Shi Saldivar, RN) * 1700 (Due) insulin lispro (HumaLOG) injection 2-8 Units [...] of insulin prior to administration. Prandial/supplemental Insulin. Pre- filled pens stable 28 days at room temperature. Insulin lispro should be administered within 15 minutes before or immediately after a meal. levETIRAcetam (KEPPRA) tablet 750 mg 750 mg, oral, 2 times daily, First dose on 12/03/24 at 0900, Look-alike/sound-alike medication -verify indication for use. * 0753 (Given - Provider: Uzma Mcpherson RN) * 2219 (Given - Provider: Shawna Carrington, RN) * 904 (Given - Provider: Uzma Mcpherson, RN) * 2127 (Given - Provider: Ellen Valera, JAEL) * 0835 (Given - Provider: Rafael Chavira, RN) [...] TO NEONATES Monitor thyroid function tests weekly * 0812 (Given - Provider: Uzma Mcpherson RN) * 09 (Given - Provider: Uzma Mcpherson, RN) * 0835 (Given - Provider: Rafael Chavira, RN) pregabalin (LYRICA) capsule 100 mg 100 mg, oral, Nightly, First dose on 12/03/24 at 2200, Look-alike/sound-alike medication. Verifyindication for use * 2219 (Given - Provider: Shawna Carrington RN) * 2127 (Given - Provider: Ellen Valera, JAEL) QUEtiapine (SEROquel) tablet 800 mg 800 mg, oral, Nightly, First dose on 12/03/24 at 2200, Look-alike/sound-alike medication - verify indication for use. * 2220 (Given - Provider: Shawna Carrington RN) * 2128 (Given - Provider: Ellen Valera, RN) sodium chloride 0.9 % bolus (COMPLETED) 1,000 mL, intravenous, at 1,935.5 mL/hr, Administer over 31 Minutes, Once, On 12/03/24 at 1200, For 1 dose * 1158 (New Bag - Provider: Uzma Mcpherson, RN) * 1229 (Stop Bag - Provider: Uzma Mcpherson, RN) sodium chloride 0.9 % bolus (COMPLETED) 1,000 mL, intravenous, at 492 mL/hr, Administer over 122 Minutes, Once, On 12/03/24 at 1715, For1 dose * 1725 (New Bag - Provider: Uzma Mcpherson, RN) * 1927 (Stop Bag - Provider: Shawna Carrington, RN) sodium chloride 0.9 % flush 10 mL(Linked Group 1) 10 mL, intravenous, 2 times daily, First dose (after last modification) on Thu12/05/24 at 0900, Implanted Ports. When deaccessing, check for patency and flush with 20 mL NS, utilizing the push/pause technique, every 4 weeks when not in use. * 0840 (Given - Provider: Rafael Chavira, JAEL) sodium chloride 0.9 % flush 3 mL 3 mL, intravenous, Every 12 hours scheduled, First dose on 12/03/24 at 0230 * 0230 (Given - Provider: Shawna Carrington RN) * 0755 (Given - Provider: Uzma Mcpherson, JAEL) * 2223 (Given - Provider: Shawna Carrington RN) * 0907 (Given - Provider: Uzma Mcpherson, RN) * 2109 (Given - Provider: Ellen Valera, RN) * 0835 (Given - Provider: Rafael Chavira, RN) tiZANidine (ZANAFLEX) tablet 4 mg 4 mg, oral, 3 times daily, First dose on 12/03/24 at 0800, Look-alike/sound-alike medication - verify indication for use. * 0812 (Given - Provider: Uzma Mcpherson RN) * 1336 (Given - Provider: Uzma cMpherson, RN) * 2220 (Given - Provider: Shawna Carrington RN) * 0906 (Given - Provider: Uzma Mcpherson RN) * 1604 (Given - Provider: Uzma Mcpherson RN) * 2128 (Given - Provider: Ellen Valera, RN) * 0541 (Given - Provider: Ellen Valera, RN) * 1434 (Given - Provider: Rafael Chavira, RN) Medication Order// insulin regular (MYXREDLIN) infusion 100 units/100 mL [...] potassium level 3.3 mmol/L or less. *Do notchange insulin drip rate for 2 hours if correction scale given for meal. Notify prescriber if bloodglucose greater than 400 mg/dL. Look-alike/sound-alike medication. Verify indication for use. * 0835 (New Bag - Provider: Uzma Mcpherson RN) * 0941 (Rate/Dose Change - Provider: Uzma Mcpherson RN) * 0943 (Rate/Dose Verify - Provider: Uzma Mcpherson RN) * 1031 (Rate/Dose Change - Provider: Uzma Mcpherson RN) * 1034 (Rate/Dose Verify - Provider: Uzma Mcpherson RN) * 1131 (Rate/Dose Change - Provider: Uzma Mcpherson RN) * 1133 (Rate/Dose Verify - Provider: Uzma Mcpherson RN) * 1231 (Rate/Dose Change - Provider: Uzma Mcpherson RN) * 1232 (Rate/Dose Verify - Provider: Uzma Mcpherson RN - Comment: [Action automatically changed]) * 1236 (Rate/Dose Verify - Provider: Uzma Mcpherson RN) * 1326 (Rate/Dose Change - Provider: Uzma Mcpherson RN) * 1327 (Rate/Dose Verify - Provider: Uzma Mcpherson RN) * 1441 (Rate/Dose Change - Provider: Uzma Mcpherson RN) * 1442 (Rate/Dose Verify - Provider: Uzma Mcpherson RN - Comment: [Action automatically changed]) * 1534 (Rate/Dose Change - Provider: Uzma Mcpherson RN) * 1538 (Rate/Dose Verify - Provider: Uzma Mcpherson RN) * 1635 (Rate/Dose Change - Provider: Uzma Mcpherson RN) * 1636 (Rate/Dose Verify - Provider: Uzma Mcpherson RN) * 1656 (Stop Bag - Provider: Uzma Mcpherson RN - Comment: [Order ends at this time. Document the following action when infusion is complete: Stop Bag]) sodium chloride 0.9 % infusion () 100 mL/hr, intravenous, Continuous, Starting on 12/03/24 at 1715, For 1 day * 1728 (New Bag - Provider: Uzma Mcpherson RN) * 2002 (Paused - Provider: Uzma Mcpherson RN) * 2005 (Restarted - Provider: Uzma Mcpherson RN) * 2006 (Paused - Provider: Uzma Mcpherson RN) * 2009 (Restarted - Provider: Uzma Mcpherson RN) * 2358 (Paused - Provider: Uzma Mcpherson RN) * 0000 (Restarted - Provider: Uzma Mcpherson RN) * 0356 (Paused - Provider: Uzam Mcpherson RN) * 0510 (Restarted - Provider: Uzma Mcpherson RN) * 0626 (Rate/Dose Verify - Provider: Uzma Mcpherson RN) * 0907 (Rate/Dose Change - Provider: Uzma Mcpherson RN) * 0909 (Stop Bag - Provider: Uzma Mcpherson RN) * 0911 (New Bag - Provider: Uzma Mcpherson RN - Comment: [Order ends at this time. Document the following action when infusion is complete: Stop Bag]) * 0922 (Stop Bag - Provider: Uzma Mcpherson RN) * 0923 (Restarted - Provider: Uzma Mcpherson RN) * 1727 (Stop Bag - Provider: Uzma Mcpherson RN - Comment: [Order ends at this time. Document the following action when infusion is complete: Stop Bag]) sodium chloride 0.9 % with KCl 20 mEq/L infusion () 100 mL/hr, intravenous, Continuous, Starting on 12/03/24 at 0745, For 1 day, For blood glucose greater than 250mg/dL. Once IV fluid is changed to dextrose- containing formulation, DO NOT change to tpy-cczhunug-pacvvjserh IV fluid if blood glucose exceeds 250 mg/dL. * 0843 (New Bag - Provider: Uzma Mcpherson RN) * 0956 (Paused - Provider: Uzma Mcpherson RN) * 0958 (Restarted - Provider: Uzma Mcpherson RN) * 1236 (Rate/Dose Verify - Provider: Uzma Mcpherson RN) * 1724 (Stop Bag - Provider: Uzma Mcpherson RN) * 0502 (New Bag - Provider: Shawna Carrington RN) * 0626 (Rate/Dose Verify - Provider: Uzma Mcpherson RN) * 0842 (Stop Bag - Provider: Uzma Mcpherson RN - Comment: [Order ends at this time. Document the following action when infusion is complete: Stop Bag]) Medication Order// dextrose (GLUTOSE) 40 % gel 15 g [...] blood glucose 250mg/dL or less, Starting on 12/03/24at 0740, For 1 day, Once IV fluid is changed to dextrose- containing formulation, DO NOT change to gjp-osjynwse-ldcdtolfam IV fluid if blood glucose exceeds 250 mg/dL. * 0816 (New Bag - Provider: Uzma Mcpherson RN) * 0816 (Paused - Provider: Uzma Mcpherson RN) * 0818 (Paused - Provider: Uzma Mcpherson RN) * 0829 (Restarted - Provider: Uzma Mcpherson RN) * 0830 (Stop Bag - Provider: Uzma Mcpherson RN) dextrose 50 % in water (D50W) 50% solution 25 mL 25 mL, intravenous, As needed, low blood sugar, blood glucose less than 70 mg/dL and unconscious orNPO with IV access, Starting on 12/03/24 at [...] not available. If NPO, initiate IV 5% Dextr ose/Water at 100 mL/hr and contact prescriber for additional orders. If blood glucose is not greater than 70 mg/dL after initial treatment, repeat treatment. ondansetron (PF) (ZOFRAN) injection 4 mg 4 mg, intravenous, Every 6 hours PRN, nausea, vomiting, Starting on 12/04/24 at 1245, Intravenous administration preferred to be given over 2-5 minutes. * 2142 (Given - Provider: Ellen Valera, JAEL) oxyCODONE-acetaminophen (PERCOCET) 5-325 mg per tablet 1 tablet 1 tablet, oral, Every 8 hours PRN, severe pain - pain scale 7-10, Starting on 12/03/24 at 0253, Look-alike/sound-alike medication - verify indication for use., Indications: pain * 0533 (Given - Provider: Shawna Carrington RN) * 1336 (Given - Provider: Uzma Mcpherson, RN) * 2220 (Given - Provider: Shawna Carrington RN) * 0916 (Given - Provider: Uzma Mcpherson RN) * 2136 (Given - Provider: Ellen Valera, JAEL) sodium chloride 0.9 % flush 20 mL(Linked [...] Minutes, As needed, line care, line care afterIVPB administration, Starting on 12/03/24 at 0216 Order Group 1: sodium chloride 0.9 % [...] BE BASED ON THE PRIMARY CLINICAL RECORDS. [employer] [facility]. provides no warranty or guarantee of the accuracy or completeness of information in this document.
--- NOTE | 2025-04-12 15:32 | ED.GENADUL1 ---
HPI HPI - General Adult General Chief complaint: Extremity Problem, Nontraumatic Stated complaint: FALL R KNEE PAIN Time Seen by Provider: 04/12/25 14:24 Source: patient Mode of arrival: Wheelchair History of Present Illness HPI narrative: Patient is a 49-year-old female that presents with complaints of few months of right knee pain after a fall. She states that her knee gave out on her when she was in a longterm after a stroke she had in December. She fell directly onto it and has had pain since on the medial lateral side. She also hit her back during that fall and has been seeing a neurosurgeon who ordered MRIs of her back and her knee. She does not get those till April. She is taking Percocet 7.5 mg for her multiple pain issues. She states that the pain is uncontrolled with the Percocet today. Related Data Home Medications ?Medication ?Instructions ?Recorded ?Confirmed albuterol sulfate 90 mcg/actuation 1 puff inhalation Q4H PRN 10/23/22 12/31/24 aerosol inhaler (Ventolin HFA) shortness of breath or wheezing aspirin 81 mg tablet,delayed 81 mg PO .daily 10/23/22 12/31/24 release chlorthalidone 25 mg tablet 25 mg PO .daily 10/23/22 12/31/24 levothyroxine 75 mcg tablet 75 mcg PO .ACB 06/25/24 12/31/24 loratadine 10 mg tablet 10 mg PO .QD 06/25/24 12/31/24 nortriptyline 25 mg capsule 25 mg PO .QHS 06/25/24 12/31/24 citalopram 40 mg tablet 40 mg PO DAILY 09/30/24 12/31/24 levetiracetam 1,000 mg tablet 1,000 mg PO Q12H 09/30/24 12/31/24 metoprolol succinate 50 mg 50 mg PO DAILY 09/30/24 12/31/24 tablet,extended release 24 hr paliperidone 9 mg tablet,extended 9 mg PO Q24H 09/30/24 12/31/24 release 24 hr pantoprazole 40 mg tablet,delayed 40 mg PO DAILY 09/30/24 12/31/24 release pregabalin 75 mg capsule 75 mg PO Q12H 09/30/24 12/31/24 tizanidine 4 mg tablet 8 mg PO BEDTIME 09/30/24 12/31/24 Previous Rx's ?Medication ?Instructions ?Recorded atorvastatin 40 mg tablet 40 mg PO QHS 90 days #90 tabs 12/30/24 clopidogrel 75 mg tablet 75 mg PO QD 21 days #21 tabs 12/30/24 calcium carbonate 500 mg (2.5 x 200 mg calcium (500 01/03/25 mg)) PO TID PRN Indigestion or heartburn #0 tabs docusate sodium 100 mg capsule 100 mg PO BID PRN Constipation #0 01/03/25 caps insulin aspart U-100 100 unit/mL 3 - 15 unit (0.03 - 0.15 mL) 01/03/25 (3 mL) subcutaneous pen (Novolog subcut ACHS #0 mL FlexPen U-100 Insulin aspart) insulin aspart U-100 100 unit/mL 7 unit (0.07 mL) subcut ACHS #0 mL 01/03/25 (3 mL) subcutaneous pen (Novolog FlexPen U-100 Insulin aspart) insulin glargine 100 unit/mL (3 50 unit (0.5 mL) SQ QHS #0 mL 01/03/25 mL) subcutaneous pen (Lantus Solostar U-100 Insulin) oxycodone-acetaminophen 5 mg-325 1 tab PO Q8H PRN pain 3 days #15 01/03/25 mg tablet tabs quetiapine 100 mg tablet 400 mg (4 x 100 mg) PO QHS #0 tabs 01/03/25 sennosides 8.6 mg-docusate sodium 1 tab PO QD PRN Constipation #0 01/03/25 50 mg tablet (Senna Plus) tabs Allergies Allergy/AdvReac Type Severity Reaction Status Date / Time Iodinated Contrast Media Allergy Unknown Rash Verified 04/12/25 14:16 latex Allergy Rash Verified 04/12/25 14:16 vancomycin Allergy Rash Verified 04/12/25 14:16 acetaminophen (From AdvReac Rash Verified 04/12/25 14:16 Darvocet-N) adhesive tape AdvReac Rash Verified 04/12/25 14:16 codeine AdvReac Rash Verified 04/12/25 14:16 dextrose 5 % in water (From AdvReac Rash Verified 04/12/25 14:16 Zyvox) fentanyl AdvReac Rash Verified 04/12/25 14:16 ibuprofen AdvReac Rash Verified 04/12/25 14:16 linezolid (From Zyvox) AdvReac Rash Verified 04/12/25 14:16 propoxyphene (From AdvReac Rash Verified 04/12/25 14:16 Darvocet-N) Opioid HPI Opioid Management Most Recent Opioid Data: Last Pain Scale 8 Today, 14:40 Last Pain Intensity 4 01/03/25, 10:59 Last MAR Pain Assessment Today, 14:40 Last ORT Total Score 2 12/31/24, 20:06 Last ORT Risk Category Low Risk 12/31/24, 20:06 Ur Phencyclidine Scrn, (NEGATIVE) Negative 12/28/24, 13:44 Review of Systems ROS Status of ROS 10 or more systems reviewed and unremarkable except as noted in history and below PFSH PFS Medical History (Updated 04/12/25 @ 16:26 by KHADAR Nunez) Pacemaker ?Z95.0 - Presence of cardiac pacemaker (ICD-10) CKD (chronic kidney disease) ?N18.9 - Chronic kidney disease, unspecified (ICD-10) Acute CVA (cerebrovascular accident) ?I63.9 - Cerebral infarction, unspecified (ICD-10) Hyperglycemia ?R73.9 - Hyperglycemia, unspecified (ICD-10) Generalized seizure ?R56.9 - Unspecified convulsions (ICD-10) Uncontrolled diabetes mellitus Cholecystectomy planned Hysterectomy planned CHF (congestive heart failure) ?I50.9 - Heart failure, unspecified (ICD-10) Schizo affective schizophrenia ?F25.9 - Schizoaffective disorder, unspecified (ICD-10) Bipolar 1 disorder ?F31.9 - Bipolar disorder, unspecified (ICD-10) Depressed ?F32.A - Depression, unspecified (ICD-10) Diabetes ?E11.9 - Type 2 diabetes mellitus without complications (ICD-10) Family History Father Family history of CHF (congestive heart failure) Family history of diabetes mellitus Family history of myocardial infarction Mother Family history of COPD (chronic obstructive pulmonary disease) Family history of stroke Social History (Updated 12/31/24 @ 20:17 by Ne Mejias RN) Within the past year, how often did you have a drink containing alcohol: never Score interpretation: A score less than 3 is consistent with normal alcohol consumption. Smoking status: Current every day smoker Second hand tobacco smoke exposure: Yes Non-prescribed substance use: denies use Known occupational exposures/hazards: No Highest level of school completed/degree received: 11th grade In a typical week, how many times do you talk on the telephone with family, friends, or neighbors: 3 or more times per week Little interest or pleasure in doing things: not at all Feeling down, depressed, or hopeless: not at all Feel stressed/tense/nervous/anxious/difficulty sleeping: only a little Life stressors: other Life stressor details: Pt was discharged to a SNF on 12/30/2024. Was there for approx 12 hours, and family arrived to sign her out r/t pt stated complaint of that longterm was not for me. Now states that she is concerned about finding a rehab. Exam Narrative Exam Narrative: General: No distress, age-appropriate Skin: Warm, dry, no pallor. No rash. Head: Normocephalic, atraumatic. Neck: Supple, non-tender. Eye: Pupils are equal, round and EOMI. No scleral icterus. Ears, Nose, Mouth, and Throat: No nasal mucosal hypertrophy. Oral mucosa is moist, no posterior oropharynx erythema, uvula is mid-line Cardiovascular: Regular Rate and Rhythm without murmur, gallop or rub. Respiratory: No accessory muscle use or respiratory distress. Back: No midline thoracic or lumbar vertebral tenderness. Musculoskeletal: Full ROM of all extremities, no calf or popliteal tenderness. Full knee ROM, 0?130. Varus/valgus stress negative for instability or pain. Pain with palpation diffusely throughout the right knee, more so on the medial joint line and medial tibial plateau. No joint effusion. No ecchymosis. No erythema. GI: Abdomen is soft, non-distended, non tender to palpation. No masses appreciated. No rebound, guarding, or rigidity noted. Neurological: A&O x4. No cranial nerve dysfunction observed. No truncal ataxia. Moves all extremities. Sensation intact. Psychiatric: Cooperative and interactive. Normal mood and affect. Constitutional Vital Signs, click to edit/add: Last Vital Signs Temp 97.7 F 04/12/25 14:16 Pulse 104 H 04/12/25 14:16 Resp 16 04/12/25 14:16 BP 160/90 H 04/12/25 14:16 Pulse Ox 98 04/12/25 14:16 O2 Del Method Room Air 04/12/25 14:16 Course Vital Signs Vital signs: Vital Signs Temperature 97.7 F 04/12/25 14:16 Pulse Rate 104 H 04/12/25 14:16 Respiratory Rate 16 04/12/25 14:16 Blood Pressure 160/90 H 04/12/25 14:16 Pulse Oximetry 98 04/12/25 14:16 Oxygen Delivery Method Room Air 04/12/25 14:16 Temperature 97.7 F 04/12/25 14:16 Pulse Rate 104 H 04/12/25 14:16 Respiratory Rate 16 04/12/25 14:16 Blood Pressure 160/90 H 04/12/25 14:16 Pulse Oximetry 98 04/12/25 14:16 Oxygen Delivery Method Room Air 04/12/25 14:16 Medical Decision Making MDM Narrative Medical decision making narrative: This is a 49-year-old female that presented to the ED with complaints of right knee pain since December when she was in a [facility] facility rehabbing from having a stroke and had fallen directly onto the knee. She is seeing a neurosurgeon for her back issues who ordered an MRI of the knee alongside her spine MRI. She has not officially seen anybody for her knee yet. She has full active and passive ROM of the right knee. It is diffusely tender with palpation, more so on the medial femoral condyle, medial joint line, and medial tibial plateau. No joint effusion. No signs of trauma. She is taking Percocet 7.5mg for her back, which I did check her OARRS and she recieved #90 Percocet 7.5mg on 03/23. She states this medication hasn't touched the pain today. 1mg Dilaudid IM given. Patient's pain improved on re-evaluation. XRay R Knee revealed an avulsion fracture fragment medial aspect of the distal femur. Age-indeterminate. I discussed the results with her, she would like some type of brace for stability. I did placed her in a knee immobilizer, but told her to make sure she comes out of it for ROM exercises a few times a day to prevent stiffness and further pain. Plan is to use walker to try and limit weight bearing to help with pain and follow up with Dr Schwab. Patient agreeable to plan. Patient asks RN for something stronger for pain than her Percocet 7.5mg. I declined as this medication is not appropriate given her injury is not acute and limiting weight bearing and using a brace for stability will help more. Patient's pain controlled in the ED and she was stable for discharge with plan for follow up with Ortho for further evaluation and treatment. Differential Diagnosis Differential Diagnosis: Fracture, bone contusion, osteoarthritis Imaging Data Right knee x-ray: Attestation: I have reviewed the pertinent imaging results. Radiologist's impression: ITS Impressions Knee X-Ray 04/12/25 14:39 IMPRESSION: Avulsion fracture fragment medial aspect of the distal femur. Age-indeterminate. Correlate with site of pain. Impression dictated by: Ben Frost M.D. 04/12/2025 4:11 PM Dictation Location: [employer] Electronically authenticated by: [id number] Y Date: 04/12/2025 16:11 Discharge Plan Discharge Chief Complaint: Extremity Problem, Nontraumatic Clinical Impression: Injury of medial collateral ligament (MCL) of knee Patient Disposition: Home, Self-Care Time of Disposition Decision: 15:50 Condition: Good Mode of Transportation: Private Vehicle Prescriptions / Home Meds: No Action citalopram 40 mg tablet 40 mg PO DAILY tizanidine 4 mg tablet 8 mg PO BEDTIME metoprolol succinate 50 mg tablet extended release 24 hr 50 mg PO DAILY pantoprazole 40 mg tablet,delayed release (DR/EC) 40 mg PO DAILY pregabalin 75 mg capsule 75 mg PO Q12H levetiracetam 1,000 mg tablet 1,000 mg PO Q12H paliperidone 9 mg tablet extended release 24hr 9 mg PO Q24H atorvastatin 40 mg Tablet 40 mg PO QHS 90 Days Qty: 90 0RF clopidogrel 75 mg Tablet 75 mg PO QD 21 Days Qty: 21 0RF albuterol sulfate [Ventolin HFA] 90 mcg/actuation HFA aerosol inhaler 1 puff INHALATION Q4H PRN (Reason: shortness of breath or wheezing) chlorthalidone 25 mg tablet 25 mg PO .daily aspirin 81 mg tablet,delayed release (DR/EC) 81 mg PO .daily levothyroxine 75 mcg tablet 75 mcg PO .ACB loratadine 10 mg tablet 10 mg PO .QD nortriptyline 25 mg capsule 25 mg PO .QHS calcium carbonate 200 mg calcium (500 mg) Tablet,Chewable 500 mg PO TID PRN (Reason: Indigestion or heartburn) Qty: 0 0RF docusate sodium 100 mg Capsule 100 mg PO BID PRN (Reason: Constipation) Qty: 0 0RF insulin aspart U-100 [Novolog FlexPen U-100 Insulin] 100 unit/mL (3 mL) Insulin Pen 3 - 15 unit subcut ACHS Qty: 0 0RF insulin aspart U-100 [Novolog FlexPen U-100 Insulin] 100 unit/mL (3 mL) Insulin Pen 7 unit subcut ACHS Qty: 0 0RF insulin glargine [Lantus Solostar U-100 Insulin] 100 unit/mL (3 mL) Insulin Pen 50 unit SQ QHS Qty: 0 0RF sennosides-docusate sodium [Senna Plus] 8.6-50 mg Tablet 1 tab PO QD PRN (Reason: Constipation) Qty: 0 0RF quetiapine 100 mg Tablet 400 mg PO QHS Qty: 0 0RF oxycodone-acetaminophen 5-325 mg tablet 1 tab PO Q8H PRN (Reason: pain) 3 Days Qty: 15 0RF Print Language: [place] Citizen Instructions: Knee Pain (ED) Referrals: Mihai Schwab DO [Physician, Orthopedics] - 1 week QUINN SANDOVAL [Primary Care Provider] - 1 week Discharge Date/Time: 04/12/25 16:46
== END 2025-04-12 16:46 | disposition home or self-care (01) ==
PROVIDERS: Emergency Provider Emergency Medicine; PCP Student in an Organized Health Care Education/Training Program
DX: S86.801A Unspecified injury of other muscle(s) and tendon(s) at lower leg level, right leg, initial encounter (principal); W19.XXXA Unspecified fall, initial encounter; Y92.129 Unspecified place in nursing home as the place of occurrence of the external cause; Z86.73 Personal history of transient ischemic attack (TIA), and cerebral infarction without residual deficits; F17.210 Nicotine dependence, cigarettes, uncomplicated
CPT/HCPCS: 73562; 96372; 99284; J1171

== ENCOUNTER 2025-04-27 18:50 | Emergency (ER) | payer OTHER, SELFPAY ==
--- OUTSIDE RECORDS SUMMARY | 2023-11-13 09:00 | XMS_ITS ---
Author Organization [facility] Address [address] [place], [place] [address] [address] Care Team Providers Care Launchman Name Role Phone Enrique Hebert Primary Care Provider DR. Mario Kwok Unavailable [phone] Luis STEVENS, [place] Unavailable Unavailable Encounters Encounter Location Date Provider Diagnosis [facility] [address] [place] [address] 11/13/2023 Mario Castillo Plan Of Treatment No Information Progress Notes * ORGANBRIDGETYDOB:1975 ( 50 yo F)Acc No.[id number]:11/13/2023 Patient:?ORGANADDIE :?TC PardoOB:1975???Age:48 Y ???Sex:FemaleDate:4Phone:[phone]:[address] [place], [place] [id number]:Enrique [facility] * Electronic signature of DR. Mario Castillo DPM on 04/27/2025 at 08:05 PM EST Sign off status: Pending * Provider: Joel Castillo DPM Date: 0 11/13/2023 Generated for Printing/Faxing/eTransmitting on:?04/27/2025 08:05 PM EST
--- OUTSIDE RECORDS SUMMARY | 2024-01-27 04:45 | XMS_ITS ---
Author Organization [facility] Address [address] [place], [place] [address] [address] Care Team Providers Care Power Technician Name Role Phone Enrique Hebert Primary Care Provider DR. Mario Kwok Unavailable [phone] Luis STEVENS, [place] Unavailable Unavailable Encounters Encounter Location Date Provider Diagnosis [facility] [address] [place] [address] 01/27/2024 Mario Castillo Plan Of Treatment No Information Progress Notes * ORGANBRIDGETYDOB:1975 ( 50 yo F)Acc No.[id number]:01/27/2024 Patient:?ORGANADDIE :?TC PardoOB:1975???Age:48 Y ???Sex:FemaleDate:01/27/2024hone:[phone]:[address] [place], [place] [address]Nvi:Enrique [facility] * Electronic signature of DR. Mario Castillo DPM on 04/27/2025 at 08:05 PM EST Sign off status: Pending * Provider: Joel Castillo DPM Date: 0 01/27/2024 Generated for Printing/Faxing/eTransmitting on:?04/27/2025 08:05 PM EST
--- OUTSIDE RECORDS SUMMARY | 2024-03-15 08:45 | XMS_ITS ---
Author Organization [facility] Address [address] [place], [place] [address] [address] Care Team Providers Care Metal Spray Operator Name Role Phone Enrique Hebert Primary Care Provider DR. Mario Kwok Unavailable [phone] Luis STEVENS, [facility] Unavailable Unavailable REASON FOR VISIT C/O SEVERE BURNING WHILE WB. WALKING ON [place] Encounters Encounter Location Date Provider Diagnosis [facility] [address] [place] [address] 03/15/2024 Mario Castillo Plan Of Treatment No Information Progress Notes * CAITY SANDERSOB:1975 ( 50 yo F)Acc No.[id number]:03/15/2024 Progress Notes Patient: ADDIE ZUÑIGA :?JAS PardoMDOB:1975???Age:48 Y ???Sex:FemaleDate:03/15/2024hone:[phone]:[address] [place], [place] [id number]:Enrique [facility] Subjective: * Chief Complaints: * C /O SEVERE BURNING WHILE WB. WALKING ON [place] * Electronic signature of DR. Mario Castillo DPM on 04/27/2025 at 08:06 PM EST Sign off status: Pending * Provider: Joel Castillo DPM Date: Generated for Printing/Faxing/eTransmitting on:?04/27/2025 08:06 PM EST
--- OUTSIDE RECORDS SUMMARY | 2024-04-20 09:15 | XMS_ITS ---
Author Organization [facility] Address [address] [place], [place] [address] [address] Care Team Providers Care Home Builder Name Role Phone Enrique Hebert Primary Care Provider DR. Mario Kwok Unavailable [phone] Luis STEVENS, [facility] Unavailable Unavailable REASON FOR VISIT STITCH REMOVAL Encounters Encounter Location Date Provider Diagnosis [facility] [address] [place] [address] [place] [address] 04/20/2024 Mario Castillo Plan Of Treatment No Information Progress Notes * BRIDGET SANDERSYDOB:1975 ( 50 yo F)Acc No.[id number]:04/20/2024 Patient:?ADDIE SANDERS :?TC PardoOB:1975???Age:49 Y ???Sex:FemaleDate:04/20/2024hone:[phone]:[address] [place], [place] [id number]:Enrique [facility] Subjective: * Chief Complaints: * S TITCH REMOVAL * Electronic signature of DR. Mario Castillo DPM on 04/27/2025 at 08:04 PM EST Sign off status: Pending * Provider: Joel Castillo DPM Date: 06/20/2023 Generated for Printing/Faxing/eTransmitting on:?04/27/2025 08:04 PM EST
--- OUTSIDE RECORDS SUMMARY | 2024-05-24 07:45 | XMS_ITS ---
Author Organization [facility] Address [address] [place], [place] [address] [address] Care Team Providers Care Conductor Sleeping Car Name Role Phone Enrique Hebert Primary Care Provider DR. Mario Kwok Unavailable [phone] Luis STEVENS, [place] Unavailable Unavailable Encounters Encounter Location Date Provider Diagnosis [facility] [address] [place] [address] 05/24/2024 Mario Castillo Plan Of Treatment No Information Progress Notes * ORGANBRIDGETYDOB:1975 ( 50 yo F)Acc No.[id number]:05/24/2024 Patient:?ORGANADDIE :?TC PardoOB:1975???Age:49 Y ???Sex:FemaleDate:05/24/2024hone:[phone]:[address] [place], [place] [address]Oee:Enrique [facility] * Electronic signature of DR. Mario Castillo DPM on 04/27/2025 at 08:05 PM EST Sign off status: Pending * Provider: Joel Castillo DPM Date: Generated for Printing/Faxing/eTransmitting on:?04/27/2025 08:05 PM EST
--- OUTSIDE RECORDS SUMMARY | 2025-03-14 08:30 | XMS_ITS ---
Author Organization [facility] Address [address] [place], [place] [address] [address] Care Team Providers Care Assembler Watch Train Name Role Phone Enrique Hebert Primary Care Provider DR. Mario Kwok Unavailable [phone] Luis STEVENS, [facility] Un[facility] Unavailable REASON FOR VISIT 1 YEAR FOLLOW UP Encounters Encounter Location Date Provider Diagnosis [facility] [address] [place] [address] [place] [address] 03/14/2025 Mario Castillo Plan Of Treatment No Information Progress Notes * BRIDGET SANDERSYDOB:1975 ( 50 yo F)Acc No.[id number]:03/14/2025 Patient:?ADDIE SANDERS :?JAS PardoMDOB:1975???Age:49 Y ???Sex:FemaleDate:03/14/2025Phone:[phone]:[address] [place], [place] [id number]:Enrique [facility] Subjective: * Chief Complaints: * 1 YEAR FOLLOW UP Billing Information: * Procedure Codes: * Electronic signature of DR. Mario Castillo DPM on 04/27/2025 at 08:03 PM EST Sign off status: Pending * Provider: Joel Castillo DPM Date: Generated for Printing/Faxing/eTransmitting on:?04/27/2025 08:03 PM EST
[2025-04-27 18:53] VITALS: BP 170/103; PULSE 110; TEMP 36.8; O2SAT 98; BMI 50.3
--- NOTE | 2025-04-27 19:11 | ED.GENADUL1 ---
HPI HPI - General Adult General Chief complaint: Headache Stated complaint: Epistaxis Time Seen by Provider: 04/27/25 19:07 Source: patient Mode of arrival: ambulance Limitations: no limitations History of Present Illness HPI narrative: This 50-year-old female who is on blood thinners after she had a stroke in the past presents for evaluation of a nosebleed and fatigue. Patient states that she started getting a nosebleed last night. She has recently been congested. Today she states that she had a recurrent nosebleed which has since stopped. She states she has been fatigued all day and has been sleeping all day. She denies any fever or chills. She has no nausea or vomiting. She has no chest pain or shortness of breath. She is concerned that she is anemic causing her to be tired today. Related Data Home Medications ?Medication ?Instructions ?Recorded ?Confirmed albuterol sulfate 90 mcg/actuation 1 puff inhalation Q4H PRN 10/23/22 12/31/24 aerosol inhaler (Ventolin HFA) shortness of breath or wheezing aspirin 81 mg tablet,delayed 81 mg PO .daily 10/23/22 12/31/24 release chlorthalidone 25 mg tablet 25 mg PO .daily 10/23/22 12/31/24 levothyroxine 75 mcg tablet 75 mcg PO .ACB 06/25/24 12/31/24 loratadine 10 mg tablet 10 mg PO .QD 06/25/24 12/31/24 nortriptyline 25 mg capsule 25 mg PO .QHS 06/25/24 12/31/24 citalopram 40 mg tablet 40 mg PO DAILY 09/30/24 12/31/24 levetiracetam 1,000 mg tablet 1,000 mg PO Q12H 09/30/24 12/31/24 metoprolol succinate 50 mg 50 mg PO DAILY 09/30/24 12/31/24 tablet,extended release 24 hr paliperidone 9 mg tablet,extended 9 mg PO Q24H 09/30/24 12/31/24 release 24 hr pantoprazole 40 mg tablet,delayed 40 mg PO DAILY 09/30/24 12/31/24 release pregabalin 75 mg capsule 75 mg PO Q12H 09/30/24 12/31/24 tizanidine 4 mg tablet 8 mg PO BEDTIME 09/30/24 12/31/24 Previous Rx's ?Medication ?Instructions ?Recorded atorvastatin 40 mg tablet 40 mg PO QHS 90 days #90 tabs 12/30/24 clopidogrel 75 mg tablet 75 mg PO QD 21 days #21 tabs 12/30/24 calcium carbonate 500 mg (2.5 x 200 mg calcium (500 01/03/25 mg)) PO TID PRN Indigestion or heartburn #0 tabs docusate sodium 100 mg capsule 100 mg PO BID PRN Constipation #0 01/03/25 caps insulin aspart U-100 100 unit/mL 3 - 15 unit (0.03 - 0.15 mL) 01/03/25 (3 mL) subcutaneous pen (Novolog subcut ACHS #0 mL FlexPen U-100 Insulin aspart) insulin aspart U-100 100 unit/mL 7 unit (0.07 mL) subcut ACHS #0 mL 01/03/25 (3 mL) subcutaneous pen (Novolog FlexPen U-100 Insulin aspart) insulin glargine 100 unit/mL (3 50 unit (0.5 mL) SQ QHS #0 mL 01/03/25 mL) subcutaneous pen (Lantus Solostar U-100 Insulin) oxycodone-acetaminophen 5 mg-325 1 tab PO Q8H PRN pain 3 days #15 01/03/25 mg tablet tabs quetiapine 100 mg tablet 400 mg (4 x 100 mg) PO QHS #0 tabs 01/03/25 sennosides 8.6 mg-docusate sodium 1 tab PO QD PRN Constipation #0 01/03/25 50 mg tablet (Senna Plus) tabs Allergies Allergy/AdvReac Type Severity Reaction Status Date / Time Iodinated Contrast Media Allergy Unknown Rash Verified 04/12/25 14:16 latex Allergy Rash Verified 04/12/25 14:16 vancomycin Allergy Rash Verified 04/12/25 14:16 acetaminophen (From AdvReac Rash Verified 04/12/25 14:16 Darvocet-N) adhesive tape AdvReac Rash Verified 04/12/25 14:16 codeine AdvReac Rash Verified 04/12/25 14:16 dextrose 5 % in water (From AdvReac Rash Verified 04/12/25 14:16 Zyvox) fentanyl AdvReac Rash Verified 04/12/25 14:16 ibuprofen AdvReac Rash Verified 04/12/25 14:16 linezolid (From Zyvox) AdvReac Rash Verified 04/12/25 14:16 propoxyphene (From AdvReac Rash Verified 04/12/25 14:16 Darvocet-N) Opioid HPI Opioid Management Most Recent Opioid Data: Last Pain Scale 10 Today, 18:53 Last Pain Intensity 4 01/03/25, 10:59 Last ORT Total Score 2 12/31/24, 20:06 Last ORT Risk Category Low Risk 12/31/24, 20:06 Ur Phencyclidine Scrn, (NEGATIVE) Negative 12/28/24, 13:44 Review of Systems ROS Status of ROS 10 or more systems reviewed and unremarkable except as noted in history and below PFSH PFS Medical History (Updated 04/27/25 @ 20:55 by Farideh Archer MD) Pacemaker ?Z95.0 - Presence of cardiac pacemaker (ICD-10) CKD (chronic kidney disease) ?N18.9 - Chronic kidney disease, unspecified (ICD-10) Acute CVA (cerebrovascular accident) ?I63.9 - Cerebral infarction, unspecified (ICD-10) Hyperglycemia ?R73.9 - Hyperglycemia, unspecified (ICD-10) Generalized seizure ?R56.9 - Unspecified convulsions (ICD-10) Uncontrolled diabetes mellitus Cholecystectomy planned Hysterectomy planned CHF (congestive heart failure) ?I50.9 - Heart failure, unspecified (ICD-10) Schizo affective schizophrenia ?F25.9 - Schizoaffective disorder, unspecified (ICD-10) Bipolar 1 disorder ?F31.9 - Bipolar disorder, unspecified (ICD-10) Depressed ?F32.A - Depression, unspecified (ICD-10) Diabetes ?E11.9 - Type 2 diabetes mellitus without complications (ICD-10) Family History Father Family history of CHF (congestive heart failure) Family history of diabetes mellitus Family history of myocardial infarction Mother Family history of COPD (chronic obstructive pulmonary disease) Family history of stroke Social History (Updated 12/31/24 @ 20:17 by Ne Mejias RN) Within the past year, how often did you have a drink containing alcohol: never Score interpretation: A score less than 3 is consistent with normal alcohol consumption. Smoking status: Current every day smoker Second hand tobacco smoke exposure: Yes Non-prescribed substance use: denies use Known occupational exposures/hazards: No Highest level of school completed/degree received: 11th grade In a typical week, how many times do you talk on the telephone with family, friends, or neighbors: 3 or more times per week Little interest or pleasure in doing things: not at all Feeling down, depressed, or hopeless: not at all Feel stressed/tense/nervous/anxious/difficulty sleeping: only a little Life stressors: other Life stressor details: Pt was discharged to a SNF on 12/30/2024. Was there for approx 12 hours, and family arrived to sign her out r/t pt stated complaint of that halfway was not for me. Now states that she is concerned about finding a rehab. Exam Narrative Exam Narrative: Vital signs and Nursing Notes reviewed: Patient is afebrile, she has tachycardic with pulse of 110 and blood pressure is 170/103, repeat blood pressure was 148/100, she is not hypoxic with pulse ox of 98% on room air General: Awake, alert, oriented, no acute distress, lying comfortably on the stretcher-no distress noted, no active bleeding noted HEENT: Normocephalic atraumatic, mucous membranes are moist and pink, eyes are clear, normal conjunctiva, vision is grossly intact, posterior pharynx is normal in appearance. There is mild excoriation to the left anterior nasal mucosa with no active bleeding or septal hematoma Neck: Supple, no meningeal signs, no anterior or posterior cervical lymphadenopathy Chest: Lungs are clear to auscultation with good air entry, there is no wheezing rhonchi or rales appreciated no accessory muscle use, patient is speaking in complete sentences-no chest wall tenderness to palpation CVS: Regular rate and rhythm S1-S2, no murmurs rubs or gallops, pulses are brisk and equal bilaterally ABD: Obese, soft, nondistended, nontender, no rebound guarding or rigidity, bowel sounds are normal, no pulsatile masses appreciated Extremities: Moving all extremities, no lower extremity tenderness or swelling noted, negative Homans' sign, pulses are brisk and equal bilaterally Skin: Normal in appearance without rash,pallor, petechiae or purpura Neuro: No focal deficits Constitutional Vital Signs, click to edit/add: Last Vital Signs Temp 98.3 F 04/27/25 18:53 Pulse 110 H 04/27/25 18:53 Resp 20 04/27/25 18:53 BP 170/103 H 04/27/25 18:53 Pulse Ox 98 04/27/25 18:53 O2 Del Method Room Air 04/27/25 18:53 Course Vital Signs Vital signs: Vital Signs Temperature 98.3 F 04/27/25 18:53 Pulse Rate 110 H 04/27/25 18:53 Respiratory Rate 20 04/27/25 18:53 Blood Pressure 170/103 H 04/27/25 18:53 Pulse Oximetry 98 04/27/25 18:53 Oxygen Delivery Method Room Air 04/27/25 18:53 Temperature 98.3 F 04/27/25 18:53 Pulse Rate 110 H 04/27/25 18:53 Respiratory Rate 20 04/27/25 18:53 Blood Pressure 170/103 H 04/27/25 18:53 Pulse Oximetry 98 04/27/25 18:53 Oxygen Delivery Method Room Air 04/27/25 18:53 Medical Decision Making MDM Narrative Medical decision making narrative: This 50-year-old female who is on blood thinners after she had a stroke in the past presents for evaluation of left-sided nosebleed. She states the nosebleed started last night and lasted several hours. It stopped spontaneously and started again while she was sleeping briefly. She has had nasal congestion and has some excoriated mucosa in the left anterior nares. There is no active bleeding or septal hematoma. Her blood pressure was elevated upon arrival at 170/100. I retook it and it is in the 140s over 100. Her neuroexam is normal. She does have a history of a stroke. She states she is very fatigued. I ordered a COVID-19, CBC and BMP on her. She has a normal white count and stable hemoglobin. BMP is normal with the exception of a glucose of 615. She has a normal CO2. BUN and creatinine are mildly elevated at 30 and 1.38. Afrin was instilled into her left nares. She has not had any additional bleeding since Afrin was instilled into her nares. She received normal saline and 10 units of IV insulin for her elevated glucose. She states that her insulin pump ran out of insulin earlier today while she was sleeping. COVID-19 testing is negative. Repeat glucose is 244. She will be discharged home with a nasal clamp and the Afrin solution to use as needed. Lab Data Labs: Lab Results 04/27/25 04/27/25 Range/Units 19:44 19:45 WBC 7.4 (4.0-11.0) 10^3/uL RBC 3.93 L (4.20-5.40) 10^6/uL Hgb 12.1 (12.0-16.0) g/dL Hct 34.7 L (36.0-48.0) % MCV 88.3 (81.0-99.0) fL MCH 30.8 (26.7-34.0) pg MCHC 34.9 (29.9-35.2) g/dL RDW 12.5 (11.0-15.0) % Plt Count 287 (150-450) 10^3/uL MPV 9.4 L (9.5-13.5) fL Neut % (Auto) 63.2 (43.0-75.0) % Lymph % (Auto) 24.9 (20.5-60.0) % [place] % (Auto) 6.3 (1.7-12.0) % Eos % (Auto) 2.8 (0.9-7.0) % Baso % (Auto) 1.2 (0.2-2.0) % Neut # (Auto) 4.7 (1.4-6.5) 10^3/uL Lymph # (Auto) 1.9 (1.2-3.8) 10^3/uL [place] # (Auto) 0.5 (0.3-0.8) 10^3/uL Eos # (Auto) 0.2 (0.0-0.7) 10^3/uL Baso # (Auto) 0.1 (0.0-0.1) 10^3/uL Abs Immat Gran (auto) 0.12 H (0.00-0.03) 10^3/uL Imm/Tot Granulo (auto) 1.6 H (0.0-0.5) % Sodium 134 L (136-145) mmol/L Potassium 4.8 (3.5-5.1) mmol/L Chloride 102 (98-107) mmol/L Carbon Dioxide 25.5 (21.0-32.0) mmol/L Anion Gap 11.3 BUN 30.0 H (7.0-18.0) mg/dL Creatinine 1.38 H (0.55-1.02) mg/dL Est GFR ( Amer) 49 L (>=60 mL/min/1.73m^2) Est GFR (Non-Af Amer) 41 L (>=60 mL/min/1.73m^2) BUN/Creatinine Ratio 21.7 Glucose 615 H* (74-106) mg/dL Calcium 9.5 (8.5-10.1) mg/dL SARS-CoV-2 Ag (CV2AG) Negative (NEGATIVE) Discharge Plan Discharge Chief Complaint: Headache Clinical Impression: Hyperglycemia due to diabetes mellitus, Anterior epistaxis Patient Disposition: Home, Self-Care Time of Disposition Decision: 21:36 Condition: Good Prescriptions / Home Meds: No Action citalopram 40 mg tablet 40 mg PO DAILY tizanidine 4 mg tablet 8 mg PO BEDTIME metoprolol succinate 50 mg tablet extended release 24 hr 50 mg PO DAILY pantoprazole 40 mg tablet,delayed release (DR/EC) 40 mg PO DAILY pregabalin 75 mg capsule 75 mg PO Q12H levetiracetam 1,000 mg tablet 1,000 mg PO Q12H paliperidone 9 mg tablet extended release 24hr 9 mg PO Q24H atorvastatin 40 mg Tablet 40 mg PO QHS 90 Days Qty: 90 0RF clopidogrel 75 mg Tablet 75 mg PO QD 21 Days Qty: 21 0RF albuterol sulfate [Ventolin HFA] 90 mcg/actuation HFA aerosol inhaler 1 puff INHALATION Q4H PRN (Reason: shortness of breath or wheezing) chlorthalidone 25 mg tablet 25 mg PO .daily aspirin 81 mg tablet,delayed release (DR/EC) 81 mg PO .daily levothyroxine 75 mcg tablet 75 mcg PO .ACB loratadine 10 mg tablet 10 mg PO .QD nortriptyline 25 mg capsule 25 mg PO .QHS calcium carbonate 200 mg calcium (500 mg) Tablet,Chewable 500 mg PO TID PRN (Reason: Indigestion or heartburn) Qty: 0 0RF docusate sodium 100 mg Capsule 100 mg PO BID PRN (Reason: Constipation) Qty: 0 0RF insulin aspart U-100 [Novolog FlexPen U-100 Insulin] 100 unit/mL (3 mL) Insulin Pen 3 - 15 unit subcut ACHS Qty: 0 0RF insulin aspart U-100 [Novolog FlexPen U-100 Insulin] 100 unit/mL (3 mL) Insulin Pen 7 unit subcut ACHS Qty: 0 0RF insulin glargine [Lantus Solostar U-100 Insulin] 100 unit/mL (3 mL) Insulin Pen 50 unit SQ QHS Qty: 0 0RF sennosides-docusate sodium [Senna Plus] 8.6-50 mg Tablet 1 tab PO QD PRN (Reason: Constipation) Qty: 0 0RF quetiapine 100 mg Tablet 400 mg PO QHS Qty: 0 0RF oxycodone-acetaminophen 5-325 mg tablet 1 tab PO Q8H PRN (Reason: pain) 3 Days Qty: 15 0RF Print Language: Turkish Instructions: Nosebleed (ED), Diabetic Hyperglycemia (ED) Referrals: QUINN SANDOVAL [Primary Care Provider] - 1 week
[2025-04-27] MEDS: OXYMETAZOLINE HCL 0.05% NASAL SPRAY 2 SPRAY NS (19:39)
[2025-04-27 19:52] LABS: Hematocrit 34.7 % (36.0-48.0); Hemoglobin 12.1 g/dL (12.0-16.0); Immature Granulocytes Abs Auto 0.12 10^3/uL (0.00-0.03); Immature Granulocytes Pct Auto 1.6 % (0.0-0.5); Lymphocytes Absolute Auto 1.9 10^3/uL (1.2-3.8); Mean Corpuscular HGB Conc 34.9 g/dL (29.9-35.2); Mean Corpuscular Hemoglobin 30.8 pg (26.7-34.0); Mean Corpuscular Volume 88.3 fL (81.0-99.0); Platelet Count 287 10^3/uL (150-450); Red Blood Count 3.93 10^6/uL (4.20-5.40); White Blood Count 7.4 10^3/uL (4.0-11.0)
--- OUTSIDE RECORDS SUMMARY | 2025-04-27 20:03 | XMS_ITS | Patient Health Record ---
Author Organization [facility] in [place] Address [address] [place] [address] Care Team Providers Care Construction Management Instructor Name Role Phone Mario Baum DO Primary Care Provider Juanjo Snow Unavailable [phone] Reason For Referral No Information Problems Problem Type SNOMED Code ICD Code Onset Dates Problem Status W/U Status Risk Notes Problem Peripheral venous in sufficiency (32538017) Venous insufficiency (chronic) (peripheral) (I87.2) ActiveconfirmedProblemChronic ulcer of foot (998180213)Non-pressure chronic ulcer of other part of left foot with fat layer exposed (L97.522)Activeconfirmed ProblemDiabetic peripheral neuropathy (570216490)Diabetic peripheral neuropathy (E11.42)ActiveconfirmedProblemHypertension (51156251)Hypertension (I10)Active confirmedProblemAnxiety (37356878)Anxiety (F41.9)ActiveconfirmedProblemType 2 diabetes mellitus (18148544)Type 2 diabetes mellitus (E11.9)Activeconfirmed ProblemLong-term current use of insulin (759492168)Current use of insulin (Z79.4)Activeconfirmed Encounters Encounter Location Date Provider Diagnosis [facility] ([facility] [address] [place] [address] [place] [address] 08/09/2024 Juanjo Amaro Plan Of Treatment No Information Insurance Providers Payer Name Payer Address Payer Phone Subscriber Number Group Number Insured Name Patient Relationship to Insured Coverage Start Date Coverage End Date [employer] [place] [employer] [address] [place] [address] [id number] ItaZenobiaelf - patient is the wvxjwou0406/25/2022
--- OUTSIDE RECORDS SUMMARY | 2025-04-27 20:03 | XMS_ITS | Clinical Summary ---
Author Organization [facility] Address [address] [place] [address] Care Team Providers Care Contour Sander Name Role Phone Mk Conti MD Unavailable [phone] Tona Nielsen Primary Care Provider [phone] Allergies Active AllergyReactionsCriticalityNoted GsspJzgosvmiZniqnqfellukxLqsdn57/10/2025 Adhesive Tape-OwpzxsxnwBnouxcw37/21/2018CodeineOther,Hives,Rash,GI intolerance High02/16/2008 Get very angry Other reaction(s): Aggressive Behavior hives FentanylGI intolerance,Hallucinations,Nausea And Vomiting,DowblTnac79/01/2019 Other Reaction(s): Renal Failure LinezolidGI intolerance,Nausea And Vomiting,VlasgKley23/28/2023 Other Reaction(s): Renal Failure LorazepamHallucinations,UcpjxDkql96/17/2022 Other Reaction(s): Other (See Comments), Renal Failure MorphineGI intolerance,Other,BugyIeph85/24/2008 Other Reaction(s): Aggressive Behavior hives Get very angry Other reaction(s): Aggressive Behavior Nsaids (Non-Steroidal Anti-Inflammatory Drug)Wsmeuoq9903/30/2017 shuts my kidney's down YphygylyolqjneozFqktj28/11/2024 Other Reaction(s): Other (See Comments) She reports Compazine made her feel anxious and grumpy She reports Compazine made her feel anxious and grumpy PropoxypheneGI intolerance,Nausea And ZvviefehEmt15/01/2016Propoxyphene N-AcetaminophenGI intolerance,SjghtZhunbh21/24/2008TramadolGI intolerance,Other, Hives,Rash,GhmrpexUhyg84/23/2012 Other Reaction(s): Other (See Comments) seizures seizures VancomycinOther,JlemcCbmq58/30/2017 Other Reaction(s): Contraindication-Medical Surgical, KIDNEY & URINARY [...] 30 tablet 5Active Active Problems ProblemNoted DateDiagnosed FiffJafrnmldvptc42/12/2025 Assessment & Plan (10/04/2024 12:14 PM EDT): - Ca 8.2 today - daily CBC Consult 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/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 MAKER 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 Will DC ene Assessment & Plan (10/03/2024 3:02 PM EDT): Ca 6.6 - albumin 2.5, corrected calcium 7.4 - will give one gram of calcium Type 2 diabetes mellitus with circulatory disorder, with long-term current use of pitqjgb8310/02/2024 Assessment & Plan (10/04/2024 12:14 PM EDT): [...] units bid - currently ISS Sick sinus clguuzby57/11/2025 Assessment & Plan (10/04/2024 12:14 PM EDT): - s/p pacemaker - interrogation ordered- asked RN to call rep Assessment & Plan (10/03/2024 10:35 AM EDT): - s/p pacemaker - interrogation ordered Assessment & Plan (10/02/2024 11:21 AM EDT): - s/p pacemaker - interrogation ordered Acute renal failure with acute tubular necrosis superimposed on stage 3a chronic kidney jweptdc0210/02/2024 Assessment & Plan (10/04/2024 12:14 PM EDT): -Cr improved today to 1.75 - renal US negative - neph consulted Assessment & Plan (10/03/2024 3:02 PM EDT): -Cr improved today to 1.89 - renal US negative - neph consulted Assessment & Plan (10/02/2024 11:21 AM EDT): - Cr 3.0 today - neph consulted Uqjorpy2510/02/2024 Assessment & Plan (10/04/2024 12:14 PM EDT): - neuro consulted at admission - Continue LEV 1g BID at least until outpt neuro follow up - Patient will need referral to [facility] neurology (for epileptologist) at discharge. - Recommend PT/OT. - Neuro will sign off. Assessment & Plan (10/03/2024 10:35 AM EDT): - neuro consulted at admission - Continue LEV 1g BID at least until outpt neuro follow up - Patient will need referral to [facility] neurology (for epileptologist) at discharge. - Recommend PT/OT. - Neuro will sign off. Assessment & Plan (10/02/2024 11:11 AM EDT): - neuro consulted at admission - Continue LEV 1g BID at least until outpt neuro follow up - Patient will need referral to [facility] neurology (for epileptologist) at discharge. - Recommend PT/OT. - Neuro will sign off. Bipolar 1 dppdhisy92/11/2025 Assessment & Plan (10/04/2024 12:14 PM EDT): [...] nightly - continue seroquel 400mg nightly Acquired whjwxhbgzcmebg89/11/2025 Assessment & Plan (10/04/2024 12:14 PM EDT): [...] follow up outpatient follow up with her defensive line coach for routine callus paring. No need for [...] follow up outpatient follow up with her defensive line coach for routine callus paring. No need for [...] injury, and seizure episode and elevated lactate. [employer] device interrogation No current indication for heparin [...] (1 standard drink = 0.6 oz pure alcohol)[facility] UtilitiesAnswerDate RecordedIn the past 12 months has the [employer], gas, oil, or water [employer] threatened to shut off services in your [...] or living in a prison (including now)? No10/01/2024Hunger Vital SignAnswerDate RecordedWithin the past 12 months, you worried that your food would run out before you got the money to buymore.Never true10/01/2024Ran Out of Food in the Last YearNot on file10/01/2024 CommentsUnknownSex and Gender InformationValueDate RecordedSex Assigned at Not on fileLegal FfmVaubgf70/29/2022 9:59 PM EDTGender IdentityNot on fileSexual OrientationNot on file Last Filed Vital Signs Vital SignReadingTime TakenCommentsBlood Vaplogee805/68010/05/2024 12:00 PM EDT Rzihe4951/14/2025 12:00 PM GKRNivyjdrzuzg85.2 ??C (97.2 ??F)10/05/2024 12:00 PM EDTRespiratory Bgxo321610/05/2024 12:00 PM EDTOxygen Krcgsfkupq52%10/05/2024 12:00 PM EDTInhaled Oxygen Concentration--Ynzuzd162 kg (309 lb)10/05/2024 5:00 AM EDT Azodvz665.5 cm (5' 2.01 )10/01/2024 9:31 AM EDTBody Mass Index56. 9:31 AM EDT Plan of Treatment Health MaintenanceDue DateLast DoneCommentsCT Rtivfaztmuic1977Colonoscopy 1977Colorectal Cancer Ovnalxjte1977FIT-DNA1977FIT1977 FOBT1977 9200Vntvqfyysaczh1977Diabetes: Retinopathy Jlecrzwdb74/25/1987 Depression Mwqxftoaa99/25/1989Hepatitis B Vaccines (1 of 3 - 19+ 3-dose series) 1996Pap Smear1998Cervical Cancer Cbiqmrglc25/25/2007HPV/Cotest 04/18/20070555Ibtoahcrv76/25/2017Diabetes: Hemoglobin A1C/02/2025, 08/02/2024, 01/12/2024, Additional history existsCOVID-19 Vaccine ( season)/, 02/16/2021, 12/02/2020Influenza Vaccine (#1) /, 05/06/2023, 04/09/2022, Additional history existsZoster Vaccines (1 of 2)2027dult Efsegch40neumococcal Vaccine: Pediatrics (0 to 5 Years) and [...] complete this topic Procedures Procedure NamePriorityDate/TimeAssociated DiagnosisCommentsHEMOGLOBIN S5OEmo-Vx 10/01/2024 11:02 AM EDT from Last 3 Months or Most Recently Relevant to Health Maintenance Results * (ABNORMAL) Hemoglobin A1c (10/01/2024 11:02 AM EDT)ComponentValueRef RangeTest MethodAnalysis TimePerformed AtPathologist SignatureHemoglobin A1C10.7(H)4.0 - 6.0 %10/02/2024 9:31 AM [facility] ([facility])Estimated Average Glucose 260mg/dL10/02/2024 9:31 AM [facility] ([facility])Specimen (Source) Anatomical Location / LateralityCollection Method / VolumeCollection Time Received TimeBloodVenous blood specimen / UnknownExisting Catheter / Unknown 10/01/2024 11:02 AM EDT10/01/2024 11:14 AM EDT Narrative Authorizing ProviderResult TypeResult StatusPatria TOBAR BLOOD ORDERABLES Final ResultPerforming OrganizationAddressCity/State/ZIP CodePhone Number [facility] ([facility]) [address] [place], [place] [phone] from Last 3 Months or Most Recently Relevant to Health Maintenance Insurance Advance Directives * Full Code (Latest Code Status on File) Date ActivatedDate InactivatedComments10/01/2024 9:44 AM10/05/2024 7:01 PM Care Teams Team MemberRelationshipSpecialtyStart DateEnd Date Tona Nielsen PA [address] [facility] [place] [address] PCP - General10/05/24 Mk Conti MD [address] [place] [address] Orthopaedic Surgery10/05/24
--- OUTSIDE RECORDS SUMMARY | 2025-04-27 20:04 | XMS_ITS | Patient Health Record ---
Author Organization [employer] [facility] Prezma es Address [address] [place] [address] Care Team Providers Care Directional Survey Drafter Name Role Phone Maye Jordan Primary Care Provider Allergies Allergen (clinical drug ingredient) Drug/Non Drug [...] Orally Twice a day; Duration: 30 day(s)ActiveNystatin 676705 UNIT/GM Ointment1 application Externally Twice a day; [...] follow up with wound care for next yodsql7012/23/2022 ActiveKeppra 750 MG Tablet1 tablet Orally every [...] a drink containing alcohol in the past year?DuWfszqp4WqwunrvovltozzXtrrjssp Behaviors affecting healthPoor/Risky Behaviors:Denies-Communication Barrier: Language Barrier?:NoSection Notes: Vapes Vapes Vapes Vapes Vapes Vapes Vapes Vapes Vapes Vapes Vapes Vapes Problems Problem Type SNOMED Code ICD Code Onset Dates Problem Status W/U Status Risk Notes Problem Diabetic foot ulcer (781209253) Diabetes mellitus due to underlying condition with foot ulcer (E08.621) ActiveconfirmedProblemType II diabetes mellitus with arthropathy (001433313)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)Activeconfirmed ProblemChronic ulcer of foot (734577518)Non-pressure chronic ulcer of left heel and midfoot with fat layer exposed (L97.422)ActiveconfirmedProblemSciatica (32540025)Lumbago with sciatica, right side (M54.41)ActiveconfirmedProblem Sciatica (00122916)Lumbago with sciatica, left side (M54.42)Activeconfirmed ProblemLong-term current use of insulin (208250396)USP (current) use of insulin (Z79.4)ActiveconfirmedProblemBipolar 1 disorder (651863345)Bipolar 1 disorder (F31.9)ActiveconfirmedProblemChronic pain (73005229)Other chronic pain (G89.29)ActiveconfirmedProblemPrimary hypertension (76803668)Primary hypertension (I10)ActiveconfirmedProblemDiabetic renal disease (078711102) Diabetic nephropathy associated with type 2 diabetes mellitus (E11.21)Active confirmedProblemHypothyroidism (39509330)Hypothyroidism, unspecified type (E03.9)ActiveconfirmedProblemMigraine with aura (7461142)Migraine with aura and without status migrainosus, not intractable (G43.109)ActiveconfirmedProblemMRSA (Methicillin resistant Staphylococcus aureus) infection (054677193)MRSA (methicillin resistant Staphylococcus aureus) infection (A49.02)Activeconfirmed ProblemIncontinence without sensory awareness (820010026)Urinary incontinence without sensory awareness (N39.42)ActiveconfirmedProblemLoss of vision of left eye (794645014)Vision loss, left eye (H54.62)Activeconfirmed Plan Of Treatment No Information Insurance Providers Payer Name Payer Address Payer Phone Subscriber Number Group Number Insured Name Patient Relationship to Insured Coverage Start Date Coverage End Date [employer] [place] Medicaid [address] [place] [address] [id number] ORGAN, CATHYSelf - patient is the [id number] 2022Wrap ABD CareSourcePO [address] [place] [id number], CATHYSelf - patient is the [id number] [employer] [place] MedicaidPO [address] [place] [id number], CATHYSelf - patient is the [id number] 2022 Wrap ABD CareSourcePO [address] [place] [address] [phone], CATHYSelf - patient is the insured 2022 Medical (General) History Medical History History ICD Code GRAN MAL SEIZURES DIABETES 2NEUROPATHYHTNHEADACHESSurgical History Surgery Date(Month/Year) TOTAL HYSTERECTOMY 2006 GALL BLADDER LAPRASCOeye rrhfzzf2073Lgjmobadfojencg History Reason Date(Month/Year) toe infection 08/2022
--- OUTSIDE RECORDS SUMMARY | 2025-04-27 20:04 | XMS_ITS | Continuity of Care Document ---
Author Organization [facility] Address [address] [place] [address] Phone [phone] Care Team Providers Care Hog Counter Name Role Phone Tona Nielsen PA-C Care Team Information Re ceiver [phone] Family History Date Family Member(s) Observation Comments [...] N ote .Renal Panel 04/29/2024 [facility] [phone].Albumin3.2.Calcium8.5.Carbon Tkghyjd47.Yaxsuadd456.Phosphorus4.0 .Potassium4.5.Dnyzfl921.BUN30.GFR37.Creatinine-LC1.73.CBC W/O Differential 4[facility] [phone].Akpvzmaorj43.3.Hemoglobin Blood9.6.Platelet Count Aevzf752.Red Blood Count3.69LHN66.4.White Blood Count6.78MCH (Corpuscular Hemoglobin)31.0MCHC (Corpuscular Hemog Conc)32.8MPV9.7MCV (Corpuscular Volume)94.5.Renal Panel 04/04/2024[facility] [phone].Albumin3.2.Calcium8.4.Carbon Wxtymur90.Xjpbopoh073.Phosphorus3.8 .Potassium4.0.Fprkud942.BUN20.GFR Zblitxlof94.Creatinine-LC1.34.CBC W/O Hodyposjjviw59/11/2024[facility] [phone].Jdoggjisap10.7.Hemoglobin Blood8.9.Platelet Count Tldwt388.Red Blood Count2.54EWP61.1.White Blood Count7.11MCH (Corpuscular Hemoglobin)31.1MCHC (Corpuscular Hemog Conc)33.3MPV9.6MCV (Corpuscular Volume)93.4.Renal Panel 03/29/2024[facility] [phone].Albumin3.0.Calcium8.7.Carbon Kfnzhbl66.Gjykbqir050.Phosphorus4.1 .Potassium4.8.Kkvtss034.BUN36.GFR Dzbalussc32.Creatinine-LC2.19.CBC W/O Gtmsyzsgmjik88/05/2024[facility] [phone].Glmuhceivc38.0.Hemoglobin Blood8.8.Platelet Count Knuop761.Red Blood Count2.93WJR28.1.White Blood Count7.18MCH (Corpuscular Hemoglobin)30.6MCHC (Corpuscular Hemog Conc)31.4MPV9.5MCV [...]
--- OUTSIDE RECORDS SUMMARY | 2025-04-27 20:04 | XMS_ITS | Clinical Summary ---
Author Organization [facility] Address [address], [address] [place] [address] Care Team Providers Care Glass Vial Filler Name Role Phone George Rob DO Primary Care Provider [phone] Allergies Active AllergyReactionsCriticalityNoted DateCommentsLorazepamHallucinations 2CodeineOther (See Comments)05/25/2015 Get very angry IodidesOther (See Comments)High02/16/2017 Renal compromise PropoxypheneNausea And OedofocyAzl10/01/2016Ketorolac TromethamineOther (See Comments)05/25/2015 Messes with seizures XqyjoirsWanch24/01/2016VancomycinOther (See Comments)High02/16/2017 Shuts my kidneys down Medications MedicationSigDispense QuantityRefillsLast FilledStart DateEnd DateStatus insulin glargine (LANTUS) 100 UNIT/ML injection vial Inject 60 Units into the skin 2 times dailyActive atorvastatin (LIPITOR) 20 MG tablet Take 20 mg by mouth dailyActive fluticasone-salmeterol (ADVAIR) 250-50 MCG/DOSE AEPB Inhale 1 puff into the lungs dailyActive insulin lispro (HUMALOG) 100 UNIT/ML injection vial Inject into the skin 3 times daily (before meals) 8 am, check sugar-by scale, and by amount eaten takes insulin, do the same for lunch, and dinner Does not have scale with herActive metFORMIN (GLUCOPHAGE) 1000 MG tablet Take 1,000 mg by mouth 2 times daily (with meals)Active metoprolol (LOPRESSOR) 25 MG tablet Take 25 mg by mouth dailyActive omeprazole (PRILOSEC) 20 MG capsule Take 40 mg by mouth dailyActive pregabalin (LYRICA) 100 MG capsule Take 100 mg by mouth three times dailyActive aspirin 81 MG chewable tablet Take 1 tablet by mouth daily 30 tablet Active Blood Pressure Monitor KIT 1 kit by Does not apply route daily 1 kit Active lithium 300 MG capsule Take 300 mg by mouth dailyActive lithium 300 MG capsule Take 600 mg by mouth Daily with supperActive QUEtiapine (SEROQUEL XR) 50 MG extended release tablet Take 50 mg by mouth nightlyActive levothyroxine (SYNTHROID) 75 MCG tablet Take 75 mcg by mouth DailyActive lisinopril (PRINIVIL;ZESTRIL) 5 MG tablet Take 5 mg by mouth dailyActive nystatin (MYCOSTATIN) 676620 UNIT/GM cream Apply topically 2 times daily Apply topically 2 times daily.Active nystatin (MYCOSTATIN) 556353 UNIT/GM powder Apply topically 4 times daily Apply topically 4 times daily.Active tiZANidine (ZANAFLEX) 4 MG tablet Take 4 mg by mouth nightlyActive zonisamide (ZONEGRAN) 100 MG capsule Take 200 mg by mouth dailyActive diclofenac (VOLTAREN) 75 MG EC tablet Take 75 mg by mouth 2 times dailyActive lidocaine-prilocaine (EMLA) 2.5-2.5 % cream Apply topically as needed for Pain Apply topically as needed.Active divalproex (DEPAKOTE) [address] tablet Take 500 mg by mouth in the morning and 500 mg before bedtime.Active levETIRAcetam (KEPPRA) 500 MG tablet Take 500 mg by mouth in the morning and 500 mg before bedtime.Active Insulin Aspart (NOVOLOG SC) Inject into the skin Via insulin pump per patientActive Active Problems ProblemNoted DateDiagnosed DateSeizure /01/4717Osnooee46/01/2016Visual zyqcjrc3505/25/2015Type 2 diabetes mellitus with eqxsjar0105/25/2015 Overview (02/22/2025): Problem List Diagnosis Replacement Utility 02/23/2024 Replacing diagnoses that were inactivated after the 02/22 regulatory import Rjvgvpgzhjvr10/01/2016Nausea and ighlhzrg51/01/9630Bhilyfje78/01/2016Sciatica of left side05/25/2015Non-intractable vomiting with nauseaPsychogenic syncope Pacemaker Immunizations ImmunizationAdministration DatesNext DueInfluenza Virus Bwlcqtd0205/28/2015 Family History Medical AwhffcqAdgenvswTycxTzdunylfXvcsjUebkckb8tbhqk diseaseDiabetesFatherHeart DiseaseFatherHigh Blood PressureFatherOtherMotherepilepsyRelationNameStatus AecyqypjNvydiyc0OdtdrScemxoWybpwGlpahpHdknf Social History Tobacco UseTypesPacks/DayYears UsedDateSmoking Tobacco: FormerCigarettesQuit: 06/25/2015Smokeless Tobacco: Former Tobacco Cessation:Counseling Given: Not Answered Alcohol UseStandard Drinks/WeekCommentsNo0 (1 standard drink = 0.6 oz pure alcohol)CommentsNoSex and Gender InformationValueDate RecordedSex Assigned at BirthNot on fileLegal XweYfouvy80/08/2013 11:49 PM ESTGender IdentityNot on fileSexual OrientationNot on file Last Filed Vital Signs Vital SignReadingTime TakenCommentsBlood Rhjziwcb604/7507 3:56 PM EDT Xugwr47637/17/2022 3:56 PM BRWGgltqnjxela75 ??C (98.6 ??F)12/08/2021 3:19 PM EDT Respiratory Kfgi9285 3:56 PM EDTOxygen Crxtprejtv64%12/08/2021 3:56 PM EDTInhaled Oxygen Concentration--Ctsfrl763.4 kg (250 lb)12/08/2021 3:19 PM EDT Rtlyru816.5 cm (5' 2 )12/08/2021 3:19 PM EDTBody Mass Index45.7307 3:19 PM EDT Plan of Treatment Not on file Insurance * Guarantor: Lisa Jean Baptiste TypeRelation to PatientDate of BirthPhone Billing AddressPersonal/TqbrvjTmzc1975 [address] [place] [address] Advance Directives * Full Code (Latest Code Status on File) Date ActivatedDate InactivatedComments05/25/2015 10:03 PM05/28/2015 9:21 PM Care Teams Team MemberRelationshipSpecialtyStart DateEnd Date George Rob DO [address] [place] [address] PCP - GeneralFamily Medicine05/28/15
--- OUTSIDE RECORDS SUMMARY | 2025-04-27 20:05 | XMS_ITS | Patient Health Record ---
Author Organization [facility] Address [address] [address] Care Team Providers Care Chemical Project Engineer Name Role Phone Enrique Hebert Primary Care Provider DR. Mario Kwok Unavailable [phone] Luis STEVENS, [place] Unavailable Unavailable Reason For Referral No Information Plan Of Treatment No Information Insurance Providers Payer Name Payer Address Payer Phone Subscriber Number Group Number Insured Name Patient Relationship to Insured Coverage Start Date Coverage End Date [employer] [place] [address] [place] [phone] [id number] ORGAN, CATHYSelf - patient is the insuredCaresource Medicaid [place]PO [address] [place] [id number], CATHYSelf - patient is the [id number] 2024
--- OUTSIDE RECORDS SUMMARY | 2025-04-27 20:05 | XMS_ITS | Clinical Summary ---
Author Organization [facility] Address [address] [facility] [address] [facility] [place] [address] Care Team Providers Care Senior Drupal Developer Name Role Phone Unavailable Primary Care Provider Unavailabl e Source Comments The following information is NOT included in Care Everywhere downloads:Psychiatric notes, ECG results, Cardiac Rehab notes, Pulmonary Function notes, data from SmartForms (includes but not limited toPregnancy data,audiograms, eye exams, pre-surgical evaluation notes, well-child exam data).[facility] Immunizations ImmunizationAdministration DatesNext DueInfluenza, injectable, quadrivalent, preservative (NPR=247)02/22/2018Influenza, injectable, quadrivalent, preservative free (ZEL=306)03/06/2021,06/05/2020Influenza, injectable, trivalent, preservative (JPP=427)04/09/2022,05/25/2020,03/26/2014Influenza, unspecified formulation (CVX=88)05/28/2015Pneumococcal polysaccharide 23 Valent (PPSV23) (CVX=33)03/06/2021Tdap (VCG=470)02/21/2022 Social History Tobacco UseTypesPacks/DayYears UsedDateSmoking Tobacco: Never Assessed CommentsNoSex and Gender InformationValueDate RecordedSex Assigned at BirthNot on fileLegal WudDwqfdi29/31/2019 4:24 PM EDTGender IdentityNot on fileSexual OrientationNot on file Last Filed Vital Signs Vital SignReadingTime TakenCommentsBlood Sxsgpltc81/51010/07/2022 6:43 AM EDT Nmcrv2857/16/2023 6:43 AM QGOIaelrworxhz85.4 ??C (97.6 ??F)10/06/2022 7:48 PM EDTRespiratory Navc493310/06/2022 7:48 PM EDTOxygen Lrjxgtktvd75%10/07/2022 6:43 AM EDTInhaled Oxygen Concentration--Weight--Height--Body Mass Index-- Plan of Treatment Health MaintenanceDue DateLast ZwznQlwybutdMvqhgiakhcl1977HIV Test 1992Hepatitis C Dtwagfmn51/25/1995Hepatitis A (HAV) Vaccine (optional start 19+ years)1996Hepatitis B (HBV) Vaccine (1 of 3 - 19+ 3-dose series) 1996Pap Smear04/18/19988865Zuuurgjhaxr84/25/2017CRC Jkhceljdr13/25/2022 Cologuard (Stool DNA)2022FIT2022OVID-19 Vaccine (2 - 2024- season)Influenza Vaccine (#1), 03/06/2021, 06/05/2020, Additional history eoyusiTvkywsjwwtc23/13/2027 03/06/2022, 05/25/2015, 09/29/2013Shingles (RZV) Vaccine (1 of 2)2027 Tetanus (Td or Tdap) Wwijveu49neumococcal Vaccine(s)Aged Out 03/06/2021No longer eligible based on patient's age to complete this topicTdap LzkkvwiFnhwmmuci64/30/2022 Insurance
[2025-04-27 20:06] LABS: Anion Gap 11.3; Blood Urea Nitrogen 30.0 mg/dL (7.0-18.0); Calcium 9.5 mg/dL (8.5-10.1); Carbon Dioxide 25.5 mmol/L (21.0-32.0); Chloride 102 mmol/L (98-107); Estimated GFR (African America 49 (>=60 mL/min/1.73m^2); Estimated GFR (Non-African Ame 41 (>=60 mL/min/1.73m^2); Potassium 4.8 mmol/L (3.5-5.1); Sodium 134 mmol/L (136-145)
[2025-04-27 20:10] LABS: SARS-CoV-2 Ag NEGATIVE (NEGATIVE)
--- OUTSIDE RECORDS SUMMARY | 2025-04-27 20:10 | XMS_ITS | CCD ---
Author Organization [facility] Care Team Providers Care Service Or Work Dispatcher Chief Name Role Phone Cem Mario Unavailable Unavailable [...] Unavailable Unavailable Breanna Gu Primary Care Physician [phone] [place] Unavailable Unavailable Herlinda June Unavailable Cem Mario DO Primary Care Provider CEM MARIO Primary Care Unavailable ANTOINE SOSA Attending Unavailable Radha Dias Primary Care Physician [phone] Pool Heath Primary Care Physician LOLI Franco Primary Care Provider DO Jacob Farfan Emergency Provider [phone] DO Ezekiel Mathew Admit Provider DO Ezekiel Mathew Attending Provider MD Jeana Martini Attending Provider [phone] MD Lawrence Kim Other Provider LUPE Castillo Other Provider [phone] MD Shameka Romero Other Provider LOLI Franco Primary Care Provider [phone] DO Jacob Farfan Emergency Provider [phone] DO Ezekiel Mathew Admit Provider [phone] MD Lawrence Kim Other Provider LUPE Castillo Other Provider MD Shameka Romero Other Provider [phone] MD Jeana Martini Attending Provider LAURENT FRANCO Primary Care Physician Shameka Romero Unavailable MD Shameka Romero Attending Provider [phone] Unavailable Primary Care Provider Unavailabl e PROVIDER, [...] Unavailable KALLIE, DR AGUILERA Primary Care Unavailable WAVERLY, DR KO Bravo Consulting Unavailable KWADWO .RAFAELA [...] e DURAN ., MR SHAMEKA Consulting Unavailable EMDARDO, DR TIMBO Harding Attending Unavailabl e HAY ., DR JONES Admitting Unavailable DIAS, RADHA Primary Care Unavailable HAY ., DR JONES Attending Unavailable HAY ., DR JONES Consulting Unavailable LINSEY, CARISA Consulting Unavailable DIAS, RADHA Primary Care Unavailable MARKER ., DR BORDEN Admitting Unavailable MARKER ., DR BORDEN Attending Unavailable MARKER ., DR BORDEN Consulting Unavailable TROTTI, GIROLAMO Consulting Unavailable ZIEBER, DR POLO Lzacano Consulting Unavailable MISC, DR AGUILERA Primary Care [...] Not In Primary Care Provider Un available [facility] [place], [place] Primary Care Provider [facility] Primary Care Unavailable XIMENA RINCON Attending Unavailable [facility] Primary Care Provider No, Physician Primary Care Provider Unavailtheo e Stephany Pelayo PA-C Primary Care Provider Angeles ELDER, Josephine Unavailable Unavailable Doctor, No Referring Unavailable Doctor, No Primary Care Unavailable Idalia Bruner Attending Unavailable Idalia Bruner Consulting Unavailable Angeles ELDER, Josephine Unavailable Unavailable Cherelle Fierro MD Unavailable Lexy Leach MD Primary Care Provider Cem Mario DO Unavailable [phone] Angeles RN, Josephine Unavailable Unavailable Angeles ELDER, Josephine Unavailable Unavailable Swapnil Hooks Unavailable Unavailable Doles RD, Radha E Unavailable Unavailable JesseeMaicoSwapnil R Unavailable Unavailable [facility] Primary Care Unavailable HARSHAD RIZZO Referring Unavailable STEPHANY PELAYO Primary Care Unavailable HARSHAD RIZZO Referring Unavailable Stephany Pelayo PA-C Primary Care Provider [phone] [phone] Primary Care Provider Unavailabl e Danaelobenito STEVENS, Dominguez Provider Primary Care Provi arlene Jim Velez MD Unavailable [phone] Doctor, No Primary Care Provider Unavailtheo Kuhn [...] Primary Care Unavailable LAWSONJUWAN ALI Admitting Unavailable [facility] Consult[facility] Unavai lable AHRUTHY SMITH Attending Unavailable SHAMEKA CASTILLO Consulting Unavailable [facility] Attending Unavailable STEPHANY PELAYO Primary Care Unavailable SHAMEKA CASTILLO Consulting Unavailable HARSHAD RIZZO Admitting Unavailable [facility] Consulting Unavai lable JUDY, SILESHI ADMASSU Admitting Unavailab STEPHANY Graham Primary Care Unavailable [facility] Consulting Unavai lable HARSHAD RIZZO [...] Care Unavaillela Velez MD, Jim Rivera Unavailable Andrés Lopez DO Primary Care Provider Andrés Lopez DO Attending Provider Vivien Arceo Attending Provider Unavailable Allergies Allergy ClassificationReported Allergen(s)Allergy TypeDate of OnsetReaction(s) Facility (20 sources)codeine; Translations: [codeine]Propensity to adverse reactions to rybt01-17-5042Kfxfwhkk (disorder), hives, Other (See Comments)[facility] Work Phone: comment on above:hiveshives (20 sources)ketorolac; Translations: [ketorolac]Propensity to adverse reactions to rwdc10-41-5414Ffjcm, Other (See Comments), Rash, GI Intolerance, Vomiting (disorder)[facility] Work Phone: comment on above:hiveshives (20 sources)Latex; Translations: [LATEX]Propensity to adverse reactions to drug 80-91-1855TumfmsyuixYwoxTgolkg Work Phone: (20 sources)traMADol; Translations: [tramadol]Propensity to adverse reactions to ilee11-52-2216Acwcb, Rash, Other (See Comments), GI Intolerance, Vomiting (disorder), Seizures, UnknownOhioHealth Work Phone: comment on above:seizuresseizures (20 sources)PROPOXYPHENE N-ACETAMINOPHEN; Translations: [PROPOXYPHENE N-ACETAMINOPHEN]Propensity to adverse reactions to etec91-75-5306CG Intolerance, VomitingOhioHealth Work Phone: (1 source)Acetaminophen / PropoxypheneDrug AllergyVA [facility] (20 sources)Adhesive agent; Translations: [ADHESIVE]Drug allergy (disorder) 97-97-3338ZqjettyIiltdgvvVA [facility] (1 source)CodeineDrug AllergyVA [facility] (10 sources)Ketorolac; Translations: [Toradol]Drug Jyuxcwd28-42-9131 hives/seizuresVA [facility] (4 sources)LatexDrug allergy (disorder)52-27-6246MccxwaukVA [facility] (4 sources)traMADolDrug Rqfbznv76-65-1681TxftlczhVA [facility] (20 sources)Vancomycin; Translations: [VANCOMYCIN]Drug Twxvzqq52-93-7925Waqooya Reaction, Unknown Reaction, [facility] Repository Comment on above: shuts down my kidneys . (3 sources)IV Dye, Iodine ContainingDrug allergy (disorder)20-58-7603GfxhcjiyVA [facility] (11 sources)Adhesive Tape; Translations: [adhesive tape]Allergy to Substance 79-23-5243PtugkYceCrystal Clinic [facility] Repository (20 sources)Ibuprofen; Translations: [ibuprofen]Drug Igiecgc14-76-2770Spuwl (See Comments), Renal Failure, [facility] CtrComment on above: shuts down my kidneys . (20 sources)Propoxyphene; Translations: [PROPOXYPHENE]Drug Ghszthj61-18-7078MM Intolerance, Nausea And VomitingMer[facility] Health [facility] (17 sources)Iodinated Contrast Media; Translations: [Iodinated Contrast Media] Allergy to Argisnfdw08-39-8834Actmx, [facility] Comment on above: shuts down my kidneys . (3 sources)CodeineDrug Fsceeum35-17-0504IqqParkview Health [facility] Rep[facility] (1 source)Contrast media; Translations: [IVP DYE]Propensity to adverse reactions (disorder)89-26-1706KgzParkview Health [facility] Hospital Repository (20 sources)fentaNYL; Translations: [FENTANYL]Drug Vflbqvt58-34-3195BipcsDxmParkview Health [facility] Repository (1 source)VancomycinDrug Yfocvgw48-60-9476LsqParkview Health [facility] Hospital Repository (9 sources)DARVOCET-N 100; Translations: [Darvocet-N 100]Drug allergy (disorder) 65-98-7268emcjlSivParkview Health [facility] Hospital Repository (20 sources)fentaNYL; Translations: [fentanyl]Drug Bcwhfyp02-38-0801Mntuk Failure, GI intoleranceOhioHealth (20 sources)NSAIDs; Translations: [NSAIDS (NON-STEROIDAL ANTI-INFLAMMATORY DRUG)]Propensity to adverse reactions to oqey04-41-9296NlvmFhyvaj (20 sources)Vancomycin; Translations: [vancomycin]Drug Fwcwnzo39-83-2127Jowpj (See Comments), hivesOhioHealth (20 sources)Ct: Iodinated Contrast- Oral And Iv Dye; Translations: [CT: IODINATED CONTRAST- ORAL AND IV DYE]Propensity to adverse reactions to drug 25-43-7102Sddgy (See Comments)[facility] (20 sources)acetaminophen / propoxyphene; Translations: [acetaminophen-propoxyphene]Drug Jpuxbvp20-26-3234Eigsjfwn (disorder), Nausea and VomitingKeenan Private Hospital (20 sources)Contrast media; Translations: [Contrast Dye]Drug allergyRenal failure syndrome (disorder)[facility] (20 sources)insect stings; Translations: [insect stings]Allergy to substance swellingKeenan Private Hospital (20 sources)opsite; Translations: [opsite]Allergy to substanceredness,blisters [facility] (7 sources)Tape 5Propensity to adverse reactions to substanceEruption of skin (disorder)[facility] HospitalComment on above:blisters (20 sources)Tape 2Propensity to adverse reactions to substanceEruption of skin (disorder)[facility] HospitalComment on above:blistersblisters (5 sources)FENTENOLPropensity to adverse luaaktwix29-74-7133Sxxzbvn, Unknown ReactionProtestant Deaconess Hospital (5 sources)adhesive tape, iv dye, latexPropensity to adverse -59-5485 itchyProtestant Deaconess Hospital (1 source)Tape 4Propensity to adverse reactions to substanceEruption of skin (disorder)[facility] Comment on above:blisters (2 sources)KetorolacDrug Byjsaep12-80-6874Fyxci (See Comments)[facility]FFINTRIHEALTH [facility] Work Phone: (20 sources)LORazepam; Translations: [LORAZEPAM]Drug Opwzrso24-80-5157 Hallucinations, Other (See Comments)[facility] (20 sources)Iodides; Translations: [IODIDES]Propensity to adverse reactions to cmpe55-82-7875Fzpud (See Comments)[facility] (20 sources)linezolid; Translations: [linezolid]Drug Ikyhikn55-44-7942Olmvpg and vomiting (disorder), Nausea And Vomiting, GI Intolerance, Renal Failure [facility] (4 sources)dextrose 5 % in water; Translations: [dextrose 5 % in water] Propensity to adverse awigpbtbj27-28-3840UzcwewdeQbjbcbzsz [facility] (1 source)VancomycinDrug AllergyhiE Ink Holdingseelusion OneCard Other (1 source)linezolidDrug Ztqndac66-85-1373AjsMemorial Health [facility] Repository (20 sources)Adhesive agentPropensity to adverse reactions to naix37-92-9203 ItchingOhioHealth Work Phone: (2 sources)Adhesive agentDrug allergy (disorder)27-26-1194VupwLancaster Municipal [facility] Repository (2 sources)CodeineDrug Vvoavrb66-05-9614Qtmf [facility] Repository (2 sources)fentaNYLDrug Dfaytvc52-97-4821Eevi [facility] Repository (2 sources)fosphenytoinDrug Fxjeaof71-34-0495Yluu [facility] Repository (2 sources)KetorolacDrug Ptuaije89-70-8533Jdms [facility] Repository (2 sources)LatexDrug allergy (disorder)06-18-3592VherLancaster Municipal Hospital Repository (3 sources)PropoxypheneDrug Ejaxfki30-64-4536DmnqplwJkas [facility] Repository (3 sources)traMADolDrug Zejxrga37-43-2519TtwubjdQqyy [facility] Repository (2 sources)VancomycinDrug Vkkvasm02-27-8890Kfux [facility] Repository (3 sources)ibuproxamDrug allergy (disorder)32-21-1331VgmcLancaster Municipal Hospital Repository (3 sources)bug bites; Translations: [bug bites]Propensity to adverse reactions (disorder)25-30-9276FhqzwnoKxebPomerene Hospital Repository (20 sources)Prochlorperazine; Translations: [PROCHLORPERAZINE]Drug Allergy 75-44-8856Wnqwn (See Comments)[facility] (7 sources)Ketorolac trometamolPropensity to adverse reactions to pmkd66-96-8637 PalpitationsMercy Health [facility] Hospital (9 sources)LatexPropensity to adverse reactions to emit44-82-9043Eoeziicguo, Hives, RashMercy Health Anderson Hospital (9 sources)Non-steroidal anti-inflammatory agentPropensity to adverse reactions to zimz67-17-2226NBJMercy Health Anderson Hospital (3 sources)*Adhesive TapePropensity to adverse bzsxaxaxb54-87-6009EEQMercy Health [facility] Hospital Work Phone: (3 sources)Codeine And RelatedPropensity to adverse reactions to jtjw97-09-1711 Aggressive BehaviorMercy Health Anderson Hospital (3 sources)Dye Fci Red 3 (Erythrosine)Propensity to adverse reactions to drug 52-48-5590BGHMercy Health Anderson Hospital (8 sources)LorazepamPropensity to adverse reactions to loft51-50-3557Eqddi Failure, HallucinationsMercy Health Anderson Hospital (6 sources)Morphine And CodeineDrug Olnjrfodkya37-76-5758Wdwgx, Rash, GI intoleranceNOMS Healthcare (7 sources)Adhesive agentAllergy to xfoijsjuq99-47-5372TaepnqiBctsWfmdct Work Phone: (1 source)fosphenytoinDrug Jbxhski93-36-4030NgemkrlAipx [facility] Work Phone: (4 sources)Acetaminophen; Translations: [ACETAMINOPHEN]Drug Mkluhwr60-81-9332 hivesUnSelect Medical [facility] (1 source)Morphine; Translations: [MORPHINE]Drug Ueckayn60-12-4563YopuxqgiaeSelect Medical Specialty [facility] Rep[facility] (5 sources)ADHESIVE TAPE-SILICONES; Translations: [ADHESIVE TAPE-SILICONES] Propensity to adverse reactions to drug (disorder)72-60-4848MouilvqsicSelect [facility] (4 sources)Contrast media; Translations: [DYE]Propensity to adverse reactions to hfju80-80-4808LoiNtdbhp [employer] (4 sources)Adhesive Tape; Translations: [Tape]Propensity to adverse reactions (disorder)[facility] Repository (4 sources)traMADol; Translations: [Ultram]Drug AllergyFisher [facility] Rep[facility] Medications Current Medications MedicationDrug Class(es)DatesSig (Normalized)Sig (Original)acetaminophen 325 mg / oxyCODONE hydrochloride 7.5 mg oral tablet (20 sources)Opioid AgonistStart: 02-23-2025 End: 59-68-1729miyp 1 tablet by mouth three times daily as needed for pain oxyCODONE-acetaminophen (PERCOCET) 7.5-325 mg per tablet Indications: Lumbar stenosis with neurogenic claudication Take 1 (one) tablet by mouth 3 (three) times a day as needed for pain . 90 tablet 03/21/2025 04/20/2025 ActiveStart: 50-04-1626usmn 1 tablet by mouth every eight hours as neededOxycodone- Acetaminophen (Percocet) 5-325 mg tablet Active 1 TAB PO Every 8 hours as needed 0 February 19, 2025 11:00pm Complies with drug therapyStart: 12-03-2024 End: tablet, oral, Every 8 hours PRN, severe pain - pain scale 7-10, Starting on 12/03/24 at 0253, Look-alike/sound-alike medication - verify indication for use., Indications: painStart: 11-21-2024 End: 05-33-6162gstz 1 tablet by mouth three times daily as needed for pain oxyCODONE-acetaminophen (PERCOCET) 5-325 mg per tablet Indications: Chronic pain syndrome Take 1 (one) tablet by mouth 3 (three) times a day as needed for pain (Days supply per fill: 30) Start: 12/22/24. 90 tablet 12/22/2024 03/16/2025 Discontinued (Dose adjustment)Start: 10-23-2024 End: 29-58-9823bucv 1 tablet by mouth three times daily as needed for pain oxyCODONE-acetaminophen (PERCOCET) 5-325 mg per tablet Indications: Chronic pain syndrome Take 1 (one) tablet by mouth 3 (three) times a day as needed for pain (Days supply per fill: 14) Start: 10/23/24. 42 tablet 10/23/2024 10/10/2024 Discontinued (Reorder (Suppress CancelRx Message to Pharmacy))Start: 10-23-2024 End: 48-43-8247qevr 1 tablet by mouth three times daily as needed for pain oxyCODONE-acetaminophen (PERCOCET) 5-325 mg per tablet Indications: Chronic pain syndrome Take 1 (one) tablet by mouth 3 (three) times a day as needed for pain (Days supply per fill: 14) Start: 10/23/24. 42 tablet 10/23/2024 10/10/2024 Discontinued (Reorder (Suppress CancelRx Message to Pharmacy))Start: 10-11-2024 End: 59-93-3272wlux 1 tablet by mouth three times daily as needed for pain oxyCODONE-acetaminophen (PERCOCET) 5-325 mg per tablet Indications: Chronic pain syndrome Take 1 (one) tablet by mouth 3 (three) times a day as needed for pain (Days supply per fill: 30) . 90 tablet 10/11/2024 11/21/2024 Discontinued (Reorder (Suppress CancelRx Message to Pharmacy))Start: 09-23-2024 End: 26-24-5566uxoy 1 tablet by mouth three times daily as needed for pain oxyCODONE-acetaminophen (PERCOCET) 5-325 mg per tablet Indications: Chronic pain syndrome Take 1 (one) tablet by mouth 3 (three) times a day as needed for pain (Days supply per fill: 14) . 42 tablet 09/23/2024 10/06/2024 Discontinued (Reorder (Suppress CancelRx Message to Pharmacy))Start: 95-79-6769Tbelfdozj- Acetaminophen 5-325 mg tablet Active TAB TABLET August 29, 2024 12:00amStart: 07-14-2024 End: 39-22-1396ztnb 1 tablet by mouth twice daily as needed for painoxyCODONE- acetaminophen (PERCOCET) 5-325 mg per tablet Indications: Chronic pain syndrome Take 1 (one) tablet by mouth 2 (two) times a day as needed for pain . 60 tablet 08/19/2024 03/16/2025 Discontinued (Dose adjustment)Start: 06-12-2024 End: 76-03-5153vsuKNLNSG-acetaminophen (PERCOCET) 5-325 mg per tablet Indications: Chronic [...] (Suppress CancelRx Message to Pharmacy))Start: 04-12-2024 End: 33-51-4170ieyw 1 tablet by mouth every six hours as needed for pain oxyCODONE-acetaminophen (PERCOCET) 5-325 mg per tablet Indications: Chronic pain syndrome Take 1 (one) tablet by mouth every 6 (six) hours as needed for pain (Days supply per fill: 30) . 15 tablet 04/12/2024 09/23/2024 Discontinued (Reorder (Suppress CancelRx Message to Pharmacy))Start: 04-08-2024 End: 38-09-1462xawv 1 tablet by mouth every four hours as needed for pain oxyCODONE-acetaminophen (PERCOCET) 5-325 mg per tablet Indications: Chronic pain syndrome Take 1 (one) tablet by mouth every 4 (four) hours as needed for pain (Days supply per fill: 10) MAX 6/DAY FORACUTE POST-OP PAIN . 180 tablet 05/13/2024 06/10/2024 Discontinued (Reorder (Suppress CancelRx Message to Pharmacy))Start: 03-24-2024 End: 81-85-0384klcq 1 tablet by mouth once daily as needed for painoxyCODONE- acetaminophen (PERCOCET) 5-325 mg per tablet Indications: Chronic pain syndrome Take 1 (one) tablet by mouth nightly as needed for pain (Days supply per fill: 30) . 30 tablet 03/24/2024 04/23/2024 ActiveStart: 03-24-2024 End: 03-95-9193kqhb 1 tablet by mouth every four hours as neededStart: 02-20-2024 End: 69-29-7999Zcthe: 01-12-2024 End: 72-49-6976wfek 1 tablet by mouth every six hours as needed1 tablet, Oral, Every 6 hours PRN, moderate to severe pain, Starting on Thu01/12/24 at 1823 Start: 15-72-3089nimp 1 tablet by mouth once1 tablet, Oral, Once, On Thu01/12/24 at 1540, For 1 doseStart: 12-24-2023 End: 56-58-2966qlmi 1 tablet by mouth once daily as needed for painoxyCODONE- acetaminophen (PERCOCET) 5-325 mg per tablet Indications: Chronic pain syndrome Take 1 (one) tablet by mouth nightly as needed for pain (Days supply per fill: 30) . 30 tablet 02/20/2024 03/22/2024 Discontinued (Reorder (Suppress CancelRx Message to Pharmacy))Start: 12-16-2023 End: 48-18-6090etro 1 tablet by mouth once daily as needed for painoxyCODONE- acetaminophen (PERCOCET) 5-325 mg per tablet Indications: Chronic pain syndrome Take 1 (one) tablet by mouth nightly as needed for pain (Days supply per fill: 30) . 30 tablet 12/16/2023 12/21/2023 Discontinued (Reorder (Suppress CancelRx Message to Pharmacy))Start: 10-06-2022 End: 07-96-3176wmaYFMNUP-acetaminophen (PERCOCET) 5-325 mg per tabletStart: 06-05-2020 End: 52-44-0569hmnk 1 tablet by mouth every six hours [...] tablet 0 06/05/2020 06/10/2020 ActiveStart: 02-08-2015 End: 50-50-6567ynna 1 tablet by mouth twice dailyoxyCODONE-acetaminophen (PERCOCET) 5-325 mg per tablet Take 1 tablet by mouth 2 (two) times a day 0 02/08/2015 06/26/2017 DiscontinuedStart: 07-04-2014 End: 25-18-9253yxbt 1 tablet by mouth twice dailyOxycodone-Acetaminophen 1 EACH tablet Discontinued 1 TAB PO TWO TIMES DAILY July 04, 2014 1:00am July 06, 2014 1:[id number] 200 actuat albuterol 0.09 mg/actuat metered dose inhaler (20 sources)beta2-Adrenergic AgonistStart: 27-86-1998qzxq 1 puff(s) by inhalation every four to six hours as neededAlbuterol Sulfate (Ventolin Hfa) 90 mcg/actuation HFA aerosol inhaler Active 2 PUFF INHALATION EVERY 4-6 HOURS as needed February 19, 2025 11:00pm Complies with drug therapyStart: 08-29-2024 Albuterol Sulfate 2.5 mg /3 mL (0.083 %) solution for nebulization Active MG August 29, 2024 12:00amStart: 04-27-2024 End: 11-79-8004uwif 2.5 mg by inhalation every six hours as needed for wheezing Start: 03-25-2024 End: 16-34-8969myyq 2.5 mg by inhalation every six hours as needed for wheezing Start: 12-10-2023 End: 55-87-8580vzld 2.5 mg by inhalation every six hours [...] 75 mL 3 08/02/2024 ActiveStart: 12-10-2023 End: 10-59-6436vzkc 2.5 mg by inhalation every six hours as needed for wheezing Start: 12-01-2023 End: 22-68-0092smha 1 puff(s) by inhalation every four to six hours as needed for wheezingalbuterol 90 mcg/actuation inhaler Indications: Chronic obstructive pulmonary disease, unspecified COPD type (HCC) Inhale 1 (one) puff every 4 to 6 hours as needed for shortness of breath or wheezing. 18 g 3 08/02/2024 Active Start: 40-98-0515Xthrc: 03-31-2023 End: 81-10-5892ozqf 1 puff(s) by inhalation every four to [...] 11, 2022 11:00pm Complies with drug therapyStart: 26-28-3421Cwaazrtb HFA 108 (90 Base) MCG/ACT inhaler 08/08/2022 ActiveStart: 77-08-6133npor 1 puff(s) by mouth every four hours as neededVentolin HFA 108 (90 Base) MCG/ACT inhaler INHALE 1 PUFF BY MOUTH EVERY 4 HOURS NEEDED 08/08/2022 ActiveStart: 25-66-8310mjib 2 puff(s) by inhalation four times daily as neededAlbuterol Sulfate HFA 108 (90 Base) MCG/ACT 2 puffs Inhalation qid prn May, ActiveStart: 06-03-2020 End: 80-22-0852gfmg 2.5 mg by inhalation every two hours as needed2.5 mg, Inhalation, Every 2 hour PRN (RT), wheezing, shortness of breath, Starting 06/03/20 at 1750take 1 puff(s) by inhalation every six hours as neededAlbuterol 108 (90 Base) MCG/ACT Aero Soln inhaler Inhale 1 puff every 6 hours as needed for Shortness of Breath. ActiveAlbuterol (Eqv-ProAir HFA) 90 mcg/inh inhalation aerosol (20 sources)Start: 28-98-2002udnb 2 puff(s) by inhalation every four hours Albuterol (Eqv-ProAir HFA) 90 mcg/inh inhalation aerosol 2 puff(s), Inhalation, q4hr Cough and Congestion, 18 gm, Refill(s) 1, [facility], 157, cm, 12/08/21 10:05:00 EDT, Height/Length Dosing, 119, kg, 12/08/21 10:05:00 EDT, Weight Dosing Start Date: 12/11/21 Status: OrderedStart: 55-09-1632hark 2 puff(s) by inhalation every four hoursAlbuterol (Eqv-ProAir HFA) 90 mcg/inh inhalation aerosol 2 puff(s), Inhalation, q4hr Cough and Congestion, 18 gm, Refill(s) 0, [facility], 158, cm, 10/09/21 15:33:00 EDT, Height/Length Dosing, 112.8, kg, 10/09/21 15:33:00 EDT, Weight Dosing Start Date: 10/09/21 Status: Orderedalbuterol 0.833 mg/ml / ipratropium bromide 0.167 mg/ml inhalation solution (7 sources)Anticholinergic, beta2-Adrenergic AgonistStart: 82-32-9401bvrl 3 mL by inhalation four times dailyDuoNeb 2.5 mg-0.5 mg/3 mL Soln-Inh 3 mL, Inhalation, QID Shortness of breath or wheezing, 180 mL, Refill(s) 0, [facility], 162, cm, 04/06/22 20:38:00 EST, Height/Length Dosing, 112, kg, 04/06/22 20:38:00 EST, Weight Dosing Start Date: 04/08/22 Status: Orderedaspirin 81 mg delayed release oral tablet (20 sources)Platelet Aggregation Inhibitor, Nonsteroidal Anti-inflammatory Drug Start: 07-96-0486uumz 1 tablet by mouth once dailyAspirin 81 mg Tablet,Delayed Release (Dr/Ec) Active 81 MG PO Daily 23 06August 21, 2022 11:00pm Complies with drug therapyStart: 07-23-2018 End: 67-51-1369xebk 1 tablet by mouth once dailyAspirin (Aspir-81) 81 mg Tablet,Delayed Release (Dr/Ec) Discontinued 81 MG PO Daily July 23, 2018 12:00am August 20, 2022 2:10amStart: 05-28-2015 End: 06-44-7046hxljnyy 81 MG Chew Tab Indications: Atrial fibrillation, unspecified type , SSS (sick sinus syndrome) take 1 tablet by mouth daily.. 30 tablet 01/21/2017 Activeazithromycin 250 mg oral tablet (2 sources)Macrolide AntimicrobialStart: 04-09-2022 End: 81-95-7788gwyj 1 tablet by mouth once dailyazithromycin 250 mg Tab 250 mg = 1 tab(s), Oral, Daily, X 2 day(s), # 2 tab(s), Refills(s) 0, Pharmacy: [facility], 162, cm, 04/06/22 20:38:00 EST, Height/Length Dosing, 112, kg, 04/06/22 20:38:00 EST, Weight Dosing Start Date: 04/09/22 Stop Date: 04/11/22 Status: OrderedStart: 43-56-3080Ocdulivqm 250 MG 2 tablet on the first day, then 1 tablet daily for 4 days Orally Once a day for 5 day(s) May, ActiveBD Insulin Syringe 27G X 1/2 (2 sources)Start: 66-24-1014VF Insulin Syringe 27G X 1/2 as directed three times daily Feb, Activebenzonatate 200 mg oral capsule (7 sources)Non-narcotic AntitussiveStart: 53-20-6570boikjkfamnt (Tessalon) 200 MG capsule Take 200 mg by mouth as needed in the morning and 200 mg as needed at noon and 200 mg as needed in the evening for cough. 07/31/2022 ActiveBlood Glucose Monitoring Suppl (OneTouch Verio Flex System) w/Device kit (4 sources)Blood Glucose Monitoring Suppl (OneTouch Verio Flex System) w/Device kit ActiveBlood Pressure Monitor KIT (1 source)Start: 37-95-1399Wymkq Pressure Monitor KIT 1 kit by Does not apply route daily 1 kit 0 07/02/2015 ActiveBlood Pressure Monitoring (ADULT BLOOD PRESSURE CUFF LG) XX KIT (3 sources)Start: 85-75-5642Vseiw-Glucose Sensor (Dexcom G6 Sensor) device (1 source)Start: 26-76-2774Wxwlb-Glucose Sensor (Dexcom G6 Sensor) device Active EACH MC August 29, 2024 12:00ambrexpiprazole 1 mg oral tablet (20 sources)Atypical AntipsychoticStart: 66-71-0966Ouhtdnr 1 mg Tab TAKE 1 TABLET DAILY FOR 7 DAYS, THEN 2 DAILY FOR 7 DAYS AND AFTER IF TOLERATED FOR PSYCHOSIS 06/26/2024 Activebrimonidine tartrate 2 mg/ml / brinzolamide 10 mg/ml ophthalmic suspension (2 sources)Carbonic Anhydrase Inhibitor, alpha-Adrenergic AgonistStart: 63-03-4290Lvnkmtxqmkig-Brimonidine (Simbrinza) 1-0.2 % Suspension Apply 1 drop to eye. Pt given sample by Jessica Puentes MD 11/09/23 11/09/2023 Active brompheniramine maleate 0.4 mg/ml / dextromethorphan hydrobromide 2 mg/ml / pseudoephedrine hydrochloride 6 mg/ml oral solution (15 sources)alpha-Adrenergic Agonist, Uncompetitive M-nxhlbw-D-aspartate Receptor Antagonist, Sigma-1 AgonistStart: 88-33-2665vgst 5 mL by mouth four times dailyBromfed DM oral syrup 5 mL, Oral, QID for cold symptoms, 200 mL, Refill(s) 0, [facility],158, cm, 10/09/21 15:33:00 EDT, Height/Length Dosing, 112.8, kg, 10/09/21 15:33:00 EDT, Weight Dosing Start Date: 10/09/21 Status: OrderedBrompheniramine / Pseudoephedrine (2 sources)alpha-Adrenergic AgonistStart: 74-62-9759nsxk 5 mL by mouth four times dailyBromfed DM oral syrup 5 mL, Oral, QID for cold symptoms, 200 mL, Refill(s) 0, [facility],158, cm, 10/09/21 15:33:00 EDT, Height/Length Dosing, 112.8, kg, 10/09/21 15:33:00 EDT, Weight Dosing Start Date: 10/09/21 Status: Orderedcalcium carbonate 500 mg chewable tablet (2 sources)Start: 34-07-0417vxep 1 tablet by mouth four times dailyCalcium Carbonate (Antacid (Calcium Carbonate)) 200 mg calcium (500 mg) tablet,chewable Active 200 MG PO Four times daily February 19, 2025 11:00pm Complies with drug therapyStart: 03-29-2023 End: 48-27-9873zhqtcxz carbonate (TUMS) chewable tablet 500 mgchlorthalidone 25 mg oral tablet (20 sources)Thiazide-like DiureticStart: 08-29-2022 End: 52-84-4752zftm 1 tablet by mouth once dailyChlorthalidone 25 mg tablet Active 25 MG PO Daily September 11, 2022 11:00pm Complies with drug therapy cholecalciferol 0.025 mg oral tablet (7 sources)Vitamin DStart: 80-93-2783zunj 1 tablet by mouth once daily cholecalciferol 1000 intl units (25 mcg) oral tablet 25 mcg = 1 tab(s), Oral, Daily, # 30 tab(s), Refills(s) 0, Pharmacy: [facility], 162, cm, 04/06/22 20:38:00 EST, Height/Length Dosing, 112, kg, 04/06/22 20:38:00 EST, Weight Dosing Start Date: 04/08/22 Status: Orderedcitalopram 40 mg oral tablet (20 sources)Serotonin Reuptake InhibitorStart: 25-70-9857pcgf 1 tablet by mouth once daily at bedtimeCitalopram 40 mg tablet Active 40 MG PO Daily at bedtime February 19, 2025 11:00pm Complies withdrug therapyStart: 03-25-2024 End: 79-08-7588Sryzj: 03-22-2024 End: 00-99-9865alwp 1 tablet by mouth once dailycitalopram (CELEXA) 40 MG tablet Indications: Bipolar 1 disorder (HCC) Take 1 (one) tablet (40 mg total) by mouth daily . 90 tablet 1 08/02/2024 ActiveStart: 10-07-2023 End: 11-71-8486dpnz 1 tablet by mouth once dailycitalopram (CELEXA) 20 MG tablet Take 1 (one) tablet (20 mg total) by mouth daily . 30 tablet 2 02/08/2024 03/22/2024 DiscontinuedStart: 08-03-2023 End: 28-28-3213uajyaadmsj (CELEXA) 10 MG tablet Take half tab daily for 1 week and then 1 tab thereafter . 30 tablet 1 08/03/2023 10/07/2023 Discontinued (Reorder (Suppress CancelRx Message to Pharmacy))clindamycin 300 mg oral capsule (2 sources)Lincosamide AntibacterialStart: 04-04-2024 End: 22-90-9721qxfmvfbjmqq 75 mg oral tablet (4 sources)P2Y12 Platelet InhibitorStart: 81-96-0953nyse 1 tablet by mouth once dailyClopidogrel 75 mg tablet Active 75 MG PO Daily February 19, 2025 11:00pm Complies with drug therapyStart: 02-18-2023 End: 54-41-8241kgqu 75 mg by mouth once daily75 mg, Oral, Daily, First dose on Thu02/18/23 at 0900Continuous Glucose Sensor (Dexcom G6 Sensor) misc (4 sources)Start: 31-22-5792Xjscemlluz Glucose Sensor (Dexcom G6 Sensor) misc USE DIRECTED FOR CONTINUOUS GLUCOSE MONITORING, CHANGE EVERY 10 DAYS 05/04/2024 ActiveContinuous Glucose Sensor (Dexcom G7 Sensor) misc (3 sources)Start: 02-02-2025 End: 98-34-3614Tzwyiyocou Glucose Sensor (Dexcom G7 Sensor) misc Indications: Type 2 diabetes mellitus with hyperglycemia, with long-term current use of insulin (HCC) 1 Bar Every 10 (ten) days 9 each 02/02/2025 05/03/2025 Active Dexcom G6 Filler Mixer Misc (20 sources)Start: 39-44-4573Mmljdm G6 Filler Mixer Misc Indications: Type 2 diabetes mellitus with diabetic polyneuropathy, with long-term current use of insulin (HCC) Use as directed for continuous glucose monitoring . 1 each 12/02Start: 88-11-3324Yngukz G6 Filler Mixer Misc Indications: Type 2 diabetes mellitus with diabetic polyneuropathy, with long-term current use of insulin (HCC) Use as directed for continuous glucose monitoring . 1 each 12/03/2023 SuspendedStart: 69-65-0905Yptbso G6 Filler Mixer Misc Indications: Type 2 diabetes mellitus with diabetic polyneuropathy, with long-term current use of insulin (HCC) Use as directed for continuous glucose monitoring . 1 each 12/03/2023 ActiveDexcom G6 Sensor Simran (20 sources)Start: 02-33-2467Tfcgla G6 Sensor Simran Indications: Type 2 diabetes mellitus with diabetic polyneuropathy, with long-term current use of insulin (HCC) Use as directed for continuous glucose monitoring change every 10days . 3 each 12/03/2023Start: 00-92-6178Xwoifo G6 Sensor Simran Indications: Type 2 diabetes mellitus with diabetic polyneuropathy, with long-term current use of insulin (HCC) Use as directed for continuous glucose monitoring change every 10 days . 3 each 12/03/2023 SuspendedStart: 01-05-3567Wuyabs G6 Sensor Simran Indications: Type 2 diabetes mellitus with diabetic polyneuropathy, with long- term current use of insulin (HCC) Use as directed for continuous glucose monitoring change every 10days . 3 each 12/03/2023 ActiveDexcom G6 Transmitter Simran (20 sources)Start: 20-20-6373Jvoswf G6 Transmitter Simran Indications: Type 2 diabetes mellitus with diabetic polyneuropathy, withlong-term current use of insulin (HCC) Use as directed for continuous glucose monitoring change every 3 months . 1 each 12/03/2023Start: 82-40-8063Xedpub G6 Transmitter Simran Indications: Type 2 diabetes mellitus with diabetic polyneuropathy, withlong- term current use of insulin (HCC) Use as directed for continuous glucose monitoring change every 3 months . 1 each 12/03/2023 SuspendedStart: 56-77-6130Rrrvff G6 Transmitter Simran Indications: Type 2 diabetes mellitus with diabetic polyneuropathy, withlong-term current use of insulin (HCC) Use as directed for continuous glucose monitoring change every 3 months . 1 each 12/03/2023 ActiveDiabetic supplies (17 sources)Start: 33-74-3930Cmjzxpet supplies Diabetic supplies, Insulin needles and syringes, alcohol swabs- three months supply (3 months). check QIDACHS. No refills. ICD code- E11.9, Print Requisition, Supply Start Date: 01/21 Status: OrdereddiazePAM 5 mg oral tablet (3 sources)BenzodiazepineStart: 40-66-6044hcbptEQQ (VALIUM) 5 MG tablet Indications: Claustrophobia 1 tab prior to exam . 1 tablet 5Active Start: 06-20-2015 End: 84-71-2666hfke 1 tablet by mouth twice daily as needed for anxietyDiazepam 5 MG tablet Discontinued 5 MG PO TWO TIMES DAILY as needed for Anxiety June 20, 2015 1:00am August 29, 2024 1:56pmStart: 07-04-2014 End: 69-56-5034bnag 1 tablet by mouth twice dailyDiazepam (Valium) 5 MG tablet Discontinued 1 TAB PO TWO TIMES DAILY July 04, 2014 1:00am July 06, 2014 12:45pmdicyclomine hydrochloride 10 mg oral capsule (5 sources)AnticholinergicStart: 99-72-8040drkk 2 capsules by mouth four times dailyBentyl 10 mg Cap 20 mg = 2 cap(s), Oral, QID, # 20 cap(s), Refills(s) 0, Pharmacy: [id number], 157, cm, 05/04/22 15:39:00 EST, Height/Length Dosing, 130, kg, 05/04/22 15:39:00 EST, Weight Dosing Start Date: 05/04/22 Status: OrderedStart: 01-24-2022 End: 76-74-1428fatq 1 tablet by mouth three times dailydicyclomine 20 mg Tab 20 mg = 1 tab(s), Oral, TID, X 7 day(s), # 21 tab(s), Refills(s) 0, Pharmacy: [facility] 1155, 157, cm, 01/24/22 10:48:00 EDT, Height/Length Dosing, 115, kg, 01/24/22 10:48:00 EDT, Weight Dosing Start Date: 01/24/22 Stop Date: 01/31/22 Status: OrdereddiphenhydrAMINE hydrochloride 25 mg oral tablet (11 sources)Histamine-1 Receptor AntagonistStart: 05-13-2023 End: 24-13-0275gkhy 1 tablet by mouth twice dailydiphenhydrAMINE (BENADRYL) 25 mg tablet Take 1 (one) tablet (25 mg total) by mouth 2 (two) times a day . 60 tablet 0 05/13/2023 06/12/2023 ActiveStart: 02-18-2023 End: 82-59-7164fhlz 1 tablet by mouth every six hours as neededdiphenhydrAMINE (BENADRYL) tablet 25 mgStart: 74-10-2822unkmclerujFDWZL 50 MG Cap Indications: Atrial fibrillation, unspecified type , SSS (sick sinus syndrome) Take 1 hour prior to pacemaker implant 02/23/17- 7am 1 capsule 01/21/2017 Activedocusate sodium 100 mg oral capsule (2 sources)Start: 21-99-9445lyyt 1 capsule by mouth once dailyDocusate Sodium 100 mg capsule Active 100 MG PO Daily February 19, 2025 11:00pm Complies with drug therapyStart: 06-04-2020 End: 12-65-4827yjrj 100 mg by mouth once esclg885 mg, Oral, Daily, First dose on Thu06/04/20 at 0900 [] Hold for loose stools. DO NOT CRUSH OR CHEW. docusate sodium 50 mg / sennosides, halfway 8.6 mg oral tablet (1 source)Start: 69-48-3074prmt 1 tablet by mouth once daily at bedtime Sennosides-Docusate Sodium (Senna Plus) 8.6-50 mg tablet Active 1 TAB-CAP PO Daily at bedtime February 19, 2025 11:00pm Complies with drug therapy doxycycline hyclate 100 mg oral tablet (20 sources)Tetracycline-class DrugStart: 04-29-2024 End: 95-07-5224bvdx 1 tablet by mouth twice dailydoxycycline hyclate (VIBRA- TABS) 100 MG tablet Take 1 (one) tablet (100 mg total) by mouth 2 (two) times a day for 14 days . 28 tablet 04/29/2024 11:47 AM EST 04/29/2024 05/13/2024 Active Start: 04-04-2024 End: 96-53-3314Ikxpl: 01-15-2024 End: mg, Oral, 2 times daily, [...] sulfate), Indication: Diabetic Foot InfectionStart: 09-19-2023 End: 93-38-6641ylso 1 capsule by mouth twice dailydoxycycline monohydrate (MONODOX) 100 MG capsule Take 1 (one) capsule (100 mg total) by mouth 2 (two) times a day for 7 days . 14 capsule 0 09/19/2023 09/26/2023 ActiveStart: 11-28-2022 End: 68-67-6681tjvy 1 capsule by mouth twice dailydoxycycline hyclate (VIBRAMYCIN) 100 MG capsule Indications: Diabetic ulcer of right foot associated with type 2 diabetes mellitus, unspecified part of foot, unspecified ulcer stage (HCC) Take 1 (one) capsule (100 mg total) by mouth 2 (two) times a day for 10 days . 20 capsule 01/27/2024 02/06/2024ExpiredStart: 08-20-2022 End: 41-61-6357dqve 1 tablet by mouth twice dailyDoxycycline Hyclate 100 mg tablet Discontinued 100 MG PO Twice daily August 19, 2022 11:00pm 2022 12:34pmStart: 08-19-2022 End: 05-79-2944zsad 1 tablet by mouth every twelve hoursdoxycycline hyclate 100 mg Tab 100 mg = 1 tab(s), Oral, q12hr, X 10 day(s), # 20 tab(s), Refills(s)0, Pharmacy: [facility], 157, cm, 08/19/22 17:10:00 EDT, Height/Length Dosing, 113, kg, 08/19/22 17:10:00 EDT, Weight Dosing Start Date: 08/19/22 Stop Date: 08/29/22 Status: OrderedStart: 06-06-2020 End: 98-05-5859dqfr 1 capsule by mouth twice dailydoxycycline hyclate (VIBRAMYCIN) 100 MG capsule Take 1 (one) capsule (100 mg total) by mouth 2 (two) times a day for 9 days Start: 06/06/20. 18 capsule 0 06/06/2020 06/15/2020 ActiveStart: 06-04-2020 End: 96-52-1726fsga 100 mg by mouth every twelve rfugo807 mg, Oral, Every 12 hours, First dose on 06/04/20 at 0500 Do not crush or open. Patient to sit up after administration for 30 minutes after taking and take with at least 8 ounces of water Take 1 hour before or 4 hours after metallic cations (e.g.antacids, aluminum,magnesium, calcium,ferrous sulfate) Indication: Skin & Soft Tissue InfectionStart: 06-03-2020 End: 85-44-4387fgifpuhoooz (VIBRAMYCIN) oral solid 100 mgDrug or medicament (substance) (2 sources)Emgality Pen 120 mg/mL Pen (2 sources)Start: 72-90-6660Tmwsxxqo Pen 120 mg/mL Pen every 30 (thirty) days For headaches, had 04/2020; states need to pick it up tomorrow at pharmacy - uses [facility] in [place] . 0 06/01/2020 Activefluconazole 150 mg oral tablet (7 sources)Azole AntifungalStart: 42-65-7826oijhfsrghek (Diflucan) 150 MG tablet 09/26/2022 ActiveFreeStyle Test - (2 sources)Start: 67-35-7885Dgtax: 68-97-4074YaoyTjgem Test - as directed In Vitro QID for 90 days Jun, Active1 ml galcanezumab-gnlm 120 mg/ml auto-injector (10 sources)Start: 81-99-0008Yfxpbgfa 120 MG/ML auto-injector 07/18/2022 Active Start: 72-49-4967Kwcvbpsn 120 MG/ML auto-injector USE DIRECTED ONCE EVERY MONTH FOR 30 DAYS 07/18/2022 ActiveStart: 06-01-2020 End: 28-29-1266Ddgnthlu Pen 120 mg/mL Pen every 30 (thirty) days For headaches, had 04/2020; states need to pick it up tomorrow at pharmacy Mayi Zhaopin uses [facility] in [place] . 0 06/01/2020 02/17/2023 DiscontinuedGLUCOSE MONITOR PRESCRIPTION (3 sources)Start: 55-09-8967IBUSZBQ MONITOR PRESCRIPTION Dispense ONE. Patient requires Insulin. 1 Each 1 04/01/2017 ActiveHandicap placard (14 sources)Start: 92-07-7160Kvehzdxo placard Handicap placard, See Instructions, 1 EA, 0, Dispense handicap placard, good for 5years., Supply Start Date: 09/30/21 Status: OrderedhydrOXYzine pamoate 100 mg oral capsule (20 sources)AntihistamineStart: 40-06-3224pkan 1 capsule by mouth once daily at bedtime for sleep and anxietyhydrOXYzine (VISTARIL) 100 MG capsule TAKE 1 CAPSULE BY MOUTH EVERYDAY AT BEDTIME FOR SLEEP AND ANXIETY 03/01/2025 Active Start: 61-43-8974mqqg 1 capsule by mouth three times daily as neededhydrOXYzine (VISTARIL) 50 MG capsule Take 1 (one) capsule (50 mg total) by mouth 3 (three) times a day as needed . 06/26/2024 ActiveStart: 01-12-2024 End: 84-20-3444Ktyaw: 10-15-2023 End: 54-91-6851zwxr 1 tablet by mouth once dailyhydrOXYzine (ATARAX) 25 MG tablet Take 1 (one) tablet (25 mg total) by mouth daily . 10/15/2023 01/18/2024 Discontinued (Stop Taking at Discharge)Start: 08-03-2023 End: 82-79-6337gkem 1 tablet by mouth twice daily as needed for anxiety hydrOXYzine (ATARAX) 25 MG tablet Take 1 (one) tablet (25 mg total) by mouth 2 (two) times a day asneeded for anxiety . 30 tablet 2 08/03/2023 09/03/2023 ExpiredStart: 02-19-2023 End: 45-98-5780zcauLARgpqu (ATARAX) tablet 25 mgStart: 14-92-8768yomwFAHjyxd pamoate (Vistaril) 25 MG capsule 07/11/2022 ActiveStart: 07-11-2022 End: 60-84-7573svsd 1 capsule by mouth twice daily as needed for anxiety hydrOXYzine (VISTARIL) 25 MG capsule Take 1 (one) capsule (25 mg total) by mouth 2 (two) times a day as needed for itching or anxiety . 180 capsule 03/25/2024 08/02/2024 Discontinued (Therapy completed)Start: 27-40-4752vdya 1 capsule by mouth once daily at bedtime as neededhydrOXYzine pamoate (Vistaril) 25 MG capsule TAKE 1 CAPSULE BY MOUTH EVERY DAY AT BEDTIME NEEDEDFOR INSOMNIA 07/11/2022 ActiveStart: 05-31-2020 End: 76-74-5403rvxuKTNobzh (ATARAX) 25 MG tablet 1 (one) tablet (25 mg total) as needed States forgets how many times per day can use--as needed per patient . 0 05/31/2020 02/17/2023 Discontinued End: 69-94-4096tzzt 1 capsule by mouth twice dailyhydrOXYzine (VISTARIL) 50 MG capsule Take 1 (one) capsule (50 mg total) by mouth 2 (two) times a day . 01/18/2024 Discontinued (Stop Taking at Discharge)3 ml insulin aspart, human 100 unt/ml pen injector (3 sources)Insulin AnalogStart: 61-22-7112Uzfkwnu Aspart U-100 100 unit/mL (3 mL) insulin pen Active SUBCUT February 19, 2025 11:00pm Complies with drug therapyStart: 01-18-2013 End: 71-56-7977opbxsm 1 [IU] by subcutaneous injection at bedtimeInsulin [...] 100 unt/ml injectable solution (20 sources)Insulin AnalogueStart: 18-26-0929Ljipfoa Glargine (Lantus U-100 Insulin) 100 unit/mL solution Active UNIT SUBCUT February 19, 2025 11:00pm Complies with drug therapyStart: 10-46-2841kzfflu 30 [IU] by subcutaneous injection twice dailyinsulin glargine (LANTUS) 100 unit/mL injection Inject 30 (thirty) Units under the skin 2 (two) times a day . 12/05/2024 ActiveStart: 96-79-3356weefor 0.3 mL by subcutaneous injection in the [...] insulin without notifying physician Start: 03-29-2023 End: 90-32-7446dqkopl 25 [IU] by subcutaneous injection once daily25 Units, Subcutaneous, Nightly, First dose on Thu03/29/23 at 2100 Do not mix with other insulins in a syringe. Do NOT hold basal insulin without notifying physician Start: 93-44-5414asjuvcp glargine (LANTUS SOLOSTAR/BASAGLAR KWIKPEN) 100 unit/mL (3 mL) InPn Inject 25 (twenty five)Units under the skin nightly . 7.5 mL 0 02/20/2023 ActiveStart: 01-14-2023 End: 95-48-8752cotvesx glargine (LANTUS SOLOSTAR/BASAGLAR KWIKPEN) 100 unit/mL (3 mL) InPn Inject 25 (twenty five)Units under the skin nightly . 7.5 mL 0 02/20/2023 05/06/2023 Discontinued (Therapy completed)Start: 95-82-5200nxmbmi 48 [IU] by subcutaneous injection at bedtimeinsulin glargine 100 UNIT/ML Solution Pen-injector injection Inject 48 Units under the skin at bedtime. 15 mL 1 04/01/2017 ActiveStart: 84-76-7075tcgadh 55 [IU] by subcutaneous injection twice daily in the evening, then inject 60 [IU] by subcutaneous injection in the morningLANTUS 100 unit/mL injection Inject under the skin 2 (two) times a day 55 units in the evening 60 units in the morning 5 03/29/2015 ActiveStart: 55-50-2932KZTCXK 100 unit/mL injection Inject under the skin 2 (two) times a day 55 units in the evening 60 units in the morning 5 03/29/2015 ActiveStart: 07-04-2014 End: 53-23-5544Ewykbxd Glargine (Lantus Solostar U-100 Insulin) 300 UNIT/3 ML insulin pen Discontinued 55 UNITS SQBEDTIME July 04, 2014 1:00am August 29, 2024 1:56pminsulin glargine (LANTUS) 100 UNIT/ML injection vial Inject 60 Units into the skin 2 times daily 0 Activeinsulin lispro 100 unt/ml injectable solution (20 sources)Insulin AnalogueStart: 91-72-1687Sarzfqn Lispro 100 UNIT/ML solution Indications: Type 2 diabetes mellitus with hyperglycemia, with long-term current use of insulin (HCC) Inject 80 Units under the skin continuously WITH INSULIN PUMP. 80 mL 2 03/07/2025 ActiveStart: 12-05-2024 End: 69-69-4855dvyujy 400 mg by subcutaneous injection once daily, [...] minutes before or immediately after a meal.Start: 52-56-3347btqtep 2-10 [IU] by subcutaneous injection four times daily at mealtimeinsulin lispro (HumaLOG) 100 unit/mL insulin pen Inject 2-10 Units under the skin 4 (four) times a day with meals and nightly. 15 mL 12 12/05/2024 ActiveStart: 12-03-2024 End: 07-38-3475slvypn 400 mg by subcutaneous injection once daily, [...] immediately after a meal. Start: 12-03-2024 End: 41-55-2841lcvsvq 400 mg by subcutaneous injection three times [...] minutes before or immediately after a meal.Start: 41-53-8203qwhcnt 10 [IU] by subcutaneous injection once10 Units, [...] Insulin SC MEALtime PREprandial Start: 09-13-2022 End: 06-39-8537Zpgcphq Lispro Sliding Scale 0-10 Units, Injection-Insulin, SubCutaneous, Start date 09/13/22 16:30:00 EDT Start Date: 09/13/22 Stop Date: 09/13/22 Status: CompletedStart: 09-13-2022 End: 96-95-1866Dybpfyz Lispro Sliding Scale 0-10 Units, Injection-Insulin, SubCutaneous, Start date 09/13/22 11:30:00 EDT Start Date: 09/13/22 Stop Date: 09/13/22 Status: CompletedStart: 09-13-2022 End: 29-94-9680Nhjqmlp Lispro Sliding Scale 0-10 Units, Injection-Insulin, SubCutaneous, Start date 09/13/22 7:30:00 EDT Start Date: 09/13/22 Stop Date: 09/13/22 Status: CompletedStart: 07-18-2022 End: 33-43-9014meojmxx lispro (AdmeLOG,HumaLOG) 100 unit/mL injection Indications: Type 2 diabetes mellitus with diabetic polyneuropathy, with long- term current use of insulin (HCC) Inject up to 150 units once daily via pump . 50 mL 5 12/08/2023 ActiveStart: 04-08-2022 End: 69-93-3300Fuyqxbi Lispro Sliding Scale 0-10 Units, Injection-Insulin, SubCutaneous, Start date 04/08/22 12:00:00 EST Start Date: 04/08/22 Stop Date: 04/08/22 Status: CompletedStart: 04-08-2022 End: 45-91-7252Hemfoot Lispro Sliding Scale 0-10 Units, Injection-Insulin, SubCutaneous, Start date 04/08/22 4:00:00 EST Start Date: 04/08/22 Stop Date: 04/08/22 Status: CompletedStart: 04-07-2022 End: 60-37-3307Jdqcqhx Lispro Sliding Scale 0-10 Units, Injection-Insulin, SubCutaneous, Start date 04/07/22 16:00:00 EST Start Date: 04/07/22 Stop Date: 04/07/22 Status: CompletedStart: 09-07-2018 End: 47-11-8053Nhcelym Lispro 100 UNIT/ML solution 07/18/2022 ActiveStart: 09-07-2018 End: 40-64-0292Fbuptjl Lispro (Admelog U-100 Insulin Lispro) 100 unit/mL [...] contact the information source for Protocol details.Start: 52-41-3249Cnawbef Lispro (Admelog U-100 Insulin Lispro) 100 unit/mL Solution Active 0 .ROUTE .COMPLEX September 07, 2018 12:00am Patient uses up to 200 Units of Insulin delivered via Omnipod.Start: 07-23-2018 End: 04-73-5273Lostiun Lispro UNIT Subcutaneous Before meals and at bedtime July 23, 2018 DiscontinuedStart: 07-23-2018 End: 38-44-8853hrhfrm 1 [IU] by subcutaneous injection at bedtimeInsulin [...] Insulin Lispro) 100 unit/mL Solution (1 source)Start: 02-24-3403Qhvacci Lispro (Admelog U-100 Insulin Lispro) 100 unit/mL [...] Activeinsulin lispro 100 UNIT/ML vial (3 sources)Start: 47-85-5712ppljiwi lispro 100 UNIT/ML vial - dose 12 units per meal, can do 6 units if having a smaller meal -also dose before meals and at bedtime for BG >150: 151-200 = 2 units 201-250 = 4 units 251-300 =6 units 301- 350 = 8 units 351-400 = 10 units 1 vial 1 04/01/2017 Activeinsulin lispro 100 units/mL injectable solution (20 sources)Start: 28-82-8832ghvaimv lispro 100 units/mL injectable solution SubCutaneous, # 10 mL, Refills(s) 0 Start Date: 09/30/21 Status: OrderedStart: 88-96-2081lceuagv lispro 100 units/mL injectable solution 5 unit(s), [...] . Suspended Iohexol (3 sources)Radiographic Contrast AgentStart: 52-14-6845Iqfdaui SOLN 3,000 mg Start: 10-07-2022 End: 18-12-4691Onyjwxg SOLN 15,000 mgisopropyl alcohol 0.7 ml/ml medicated pad (20 sources)Start: 12-08-2023 End: 92-13-9503cexodtp swabs PadM Indications: Type 2 diabetes mellitus with diabetic polyneuropathy, with long-term current use of insulin (HCC) Apply 1 (one) Swab. topically 5 (five) times a day Clean area beforeadministering insulin. . 150 each 5 12/08/2023 ActivelamoTRIgine 25 mg oral tablet (20 sources)Mood Stabilizer, Anti-epileptic AgentStart: 02-08-2024 End: 40-97-3548xiqi 1 tablet by mouth twice dailylamoTRIgine (LAMICTAL) 25 MG tablet Take 1 (one) tablet (25 mg total) by mouth 2 (two) times a day . 60 tablet 2 02/08/2024 ActiveStart: 10-07-2023 End: 40-75-3534cyxeMSKkfar (LAMICTAL) 25 MG tablet Take 1 tab daily for 2 weeks and then twice a day thereafter . 30 tablet 2 10/07/2023 02/08/2024 Discontinued (Reorder (Suppress CancelRx Message to Pharmacy))levETIRAcetam 1000 mg oral tablet (20 sources)Anti-epileptic AgentStart: 36-21-6742Jjzmkiudbplpo 1,000 mg tablet Active 1000 MG PO February 19, 2025 11:00pm Complies with drug therapyStart: 12-03-2024 End: 67-25-5850vqpe 750 mg by mouth twice cehrg169 mg, oral, 2 times daily, First dose on Thu12/03/24 at 0900, Look-alike/sound-alike medication -verify indication for use.Start: 01-14-2024 End: 99-39-6364hhnb 1000 mg by mouth twice daily1,000 mg, Oral, 2 times daily, First dose on Danelle 01/14/24 at 1100Start: 03-29-2023 End: ,000 mg, Oral, 2 times daily, First dose on Thu03/29/23 at 2100 Do Not Crush or Chew if administering orally due to bitter taste. May be crushed if given via tube.Start: 02-18-2023 End: 48-22-6972wxaq 1000 mg by mouth twice daily1,000 mg, Oral, 2 times daily, First dose on Thu02/18/23 at 0900Start: 01-13-2023 End: 49-73-4408rhxc 1 tablet by mouth twice dailylevETIRAcetam (KEPPRA) 1000 MG tablet Take 1 (one) tablet (1,000 mg total) by mouth 2 (two) times aday . 60 tablet 09/22/2024 ActiveStart: 97-27-1913ifwo 1 tablet by mouth twice daily levETIRAcetam 750 mg oral tablet, dispersible 750 mg = 1 tab(s), Oral, BID, Refills(s) 0 Start Date: 09/12/22 Status: OrderedStart: 24-04-3418knfw 1 tablet by mouth every twelve hourslevETIRAcetam (Keppra) 750 MG tablet Take 1 tablet by mouth every 12 (twelve) hours 08/01/2022 ActiveStart: 52-93-3329sijh 1 tablet by mouth twice dailyKeppra 250 mg Tab 250 mg = 1 tab(s), Oral, BID, # 60 tab(s), Refills(s) 0, Pharmacy: [facility], 157, cm, 02/27/22 12:02:00 EDT, Height/Length Dosing, 113.5, kg, 02/27/22 12:02:00 EDT, Weight Dosing Start Date: 02/27/22 Status: OrderedStart: 96-10-9327guzq 1 tablet by mouth twice daily levETIRAcetam 500 mg oral tablet, dispersible 500 mg = 1 tab(s), BID, Refills(s) 0, Seizure Start Date: 03/14/21 Status: OrderedStart: 96-71-5270avaf 1 tablet by mouth once dailylevETIRAcetam 500 mg oral tablet, dispersible 500 mg = 1 tab(s), Daily, Refills(s) 0, Seizure StartDate: 03/14/21 Status: OrderedStart: 08-04-2019 End: 46-02-4223Hxgpmjawdvgtq 500 mg tablet Discontinued 750 MG PO Twice daily August 03, 2019 11:00pm February 20, 2025 11:00amStart: 40-05-5650qniz 750 mg by mouth twice dailyLevetiracetam Active 750 MG PO Twice daily August 04, 2019 12:00amStart: 04-13-2015 End: 00-72-2419rsoz 2 tablets by mouth twice dailyLevetiracetam 500 MG tablet Discontinued 1000 MG PO TWO TIMES DAILY 60 April 13, 2015 1:00am August 29, 2024 1:56pmStart: 03-02-2015 End: 91-82-1974kqft 500 mg by mouth twice dailyLevetiracetam Active 500 MG PO Twice daily August 04, 2019 12:00amStart: 98-61-2966kabi 1 tablet by mouth twice dailylevETIRAcetam (KEPPRA) [...] (20 sources)Angiotensin Converting Enzyme InhibitorStart: 03-25-2024 End: 40-54-2816Tpkzn: 09-03-2023 End: 37-90-5784obfm 1 tablet by mouth once dailylisinopriL (PRINIVIL,ZESTRIL) 30 MG tablet Indications: Primary hypertension Take 1 (one) tablet (30 mg total) by mouth daily . 90 tablet 1 01/27/2024 02/11/2024 Discontinued (Dose adjustment)Start: 03-31-2023 End: 44-72-5462tpud 1 tablet by mouth once dailylisinopriL (PRINIVIL,ZESTRIL) 20 MG tablet Indications: Hypertensive urgency Take 1 (one) tablet (20 mg total) by mouth daily . 90 tablet 1 05/06/2023 09/03/2023 Discontinued (Dose adjustment)Start: 02-18-2023 End: 43-00-5346vnro 40 mg by mouth once daily at lunch40 mg, Oral, Daily with lunch, First dose on Thu02/18/23 at 1200Start: 09-15-2022 End: 07-45-0100wdqkiuzwma 20 mg Tab 40 mg = 2 tab(s), Tab, Oral, Start date 09/15/22 9:00:00 EDT, 09/12/22 17:37:00 EDT Start Date: 09/15/22 Stop Date: 09/15/22 Status: CompletedStart: 08-20-2022 End: 51-49-9313Tmwlbrwkne 40 mg tablet Discontinued 40 MG PO As Directed 60 0 August 22, 2022 12:31pm August 6:09am Take half a tablet daily for 2 days then 1 tablet dailyStart: 07-02-2012 End: 03-78-0375aiwt 1 tablet by mouth once dailylisinopril (ZESTRIL) 5 MG PO TABS Indications: HTN (hypertension) , A-fib take 1 Tab by mouth daily. 30 Tab 11 07/02/2012 Activetake 1.5 tablets by mouth once dailyLisinopril 20 MG tablet Take 1.5 tablets by mouth daily. Activelithium carbonate 300 mg oral capsule (11 sources)Start: 19-42-2654efvffxf 300 MG Cap Indications: Atrial fibrillation, unspecified [...] Activeloratadine 10 mg oral capsule (20 sources)Start: 00-96-8586jema 1 capsule by mouth once dailyLoratadine (Allergy Relief (Loratadine)) 10 mg capsule Active 10 MG PO Daily February 19, 2025 11:00pm Complies with drug therapyStart: 02-11-2024 End: 23-84-4050odqa 1 tablet by mouth once dailyloratadine (CLARITIN) 10 mg tablet Take 1 (one) tablet (10 mg total) by mouth daily . 90 tablet 1 08/02/2024 Activelosartan potassium 25 mg oral tablet (20 sources)Angiotensin 2 Receptor BlockerStart: 09-30-2021 End: 01-32-1400icvb 1 tablet by mouth once dailylosartan 25 mg Tab 25 mg = 1 tab(s), Oral, Daily, X 90 day(s), # 90 tab(s), Refills(s) 0, Pharmacy:[facility], 158, cm, 09/30/21 14:00:00 EDT, Height/Length Dosing, 112.8, kg, 09/30/21 14:00:00 EDT, Weight Dosing Start Date: 09/30/21 Stop Date: 12/29/21 Status: OrderedStart: 07-14-2017 End: 48-58-7915xrqc 1 tablet by mouth once dailyLosartan 25 mg tablet Discontinued 25 MG PO Daily July 23, 2018 12:00am March 24, 2019 7:31am meclizine hydrochloride 25 mg oral tablet (20 sources)AntiemeticStart: 84-25-9736jptj 1 tablet by mouth three times daily as needed for dizzinessmeclizine 25 mg Tab 25 mg = 1 tab(s), Oral, TID, PRN as needed for dizziness, # 30 tab(s), Refills(s) 0, Pharmacy: [facility], 158, cm, 09/30/21 14:00:00 EDT, Height/Length Dosing, 112.8, kg, 09/30/21 14:00:00 EDT, Weight Dosing Start Date: 09/30/21 Status: OrderedStart: 11-14-2020 take 1 tablet by mouth three times daily as needed for dizzinessmeclizine 25 mg Tab 25 mg = 1 tab(s), Oral, TID, PRN as needed for dizziness, # 30 tab(s), Refills(s) 0, Pharmacy: [facility], 157, cm, 11/14/20 15:53:00 EDT, Height/Length Dosing, 117.1, kg, 11/14/20 15:53:00 EDT, Weight Dosing Start Date: 11/14/20 Status: Orderedmeloxicam 15 mg oral tablet (20 sources)Nonsteroidal Anti-inflammatory DrugStart: 09-30-2021 End: 50-54-3419yjln 1 tablet by mouth once dailymeloxicam 15 mg Tab 15 mg = 1 tab(s), Oral, Daily, X 90 day(s), # 90 tab(s), Refills(s) 0, Pharmacy: [facility], 158, cm, 09/30/21 14:00:00 EDT, Height/Length Dosing, 112.8, kg, 09/30/21 14:00:00 EDT, Weight Dosing Start Date: 09/30/21 Stop Date: 12/29/21 Status: OrderedStart: 07-14-2017 End: 89-16-0701tcug 1 tablet by mouth once daily as needed for painMeloxicam 15 mg Tablet Discontinued 15 MG PO Daily as needed for pain 0 0 January 29, 2019 10:26am March 24, 2019 7:32ammetFORMIN hydrochloride 1000 mg oral tablet (20 sources)BiguanideStart: 03-29-2015 End: 49-67-9510sndj 1 tablet by mouth twice dailyMetformin 1,000 mg tablet Active 1000 MG PO Twice daily July 23, 2018 12:00am Complies with drug therapy Start: 08-22-2012 End: 38-50-3726hbli 2 tablets by mouth twice dailyMetformin 500 MG tablet Discontinued 1000 MG PO TWO TIMES DAILY August 22, 2012 12:00am August 1:56pmtake 1 tablet by mouth twice daily at mealtimemetFORMIN (GLUMETZA) 1000 MG (MOD) 24 hr tablet Take 1,000 mg by mouth 2 (two) times a day with meals. Activemethocarbamol 500 mg oral tablet (1 source)Muscle RelaxantStart: 06-02-2022 End: 68-83-7406oobq 1 tablet by mouth three times dailyRobaxin 500 mg Tab 500 mg = 1 tab(s), Oral, TID, X 3 day(s), # 9 tab(s), Refills(s) 0, Pharmacy: [facility], 157, cm, 06/02/22 15:53:00 EST, Height/Length Dosing, 116.2, kg, 06/02/22 15:53:00 EST, Weight Dosing Start Date: 06/02/22 Stop Date: 06/05/22 Status: Orderedmetoprolol tartrate 25 mg oral tablet (20 sources)beta-Adrenergic BlockerStart: 38-31-6268sftg 2 tablets by mouth once dailyMetoprolol Tartrate 25 mg tablet Active 50 MG PO Daily February 20, 2025 11:02am Complies with drug therapyStart: 12-15-3552icen 1 tablet by mouth every twenty-four hoursMetoprolol Succinate 50 mg tablet extended release 24 hr Active MG PO August 29, 2024 12:00amStart: 04-27-2024 End: 49-18-5254zajq 25 mg by mouth twice daily25 mg, Oral, 2 times daily, First dose (after last modification) on Thu04/27/24 at 0900Start: 04-01-2024 End: 13-26-8163Pudmp: 01-18-2024 End: 66-22-5333rdkp 25 mg by mouth once daily25 mg, Oral, Daily, First dose (after last modification) on Thu01/18/24 at 0900, Hold if sbpStart: 10-13-2023 End: 54-06-9987xuay 1 tablet by mouth once dailymetoprolol succinate (TOPROL-XL) 50 MG 24 hr tablet Indications: Primary hypertension Take 1 (one) tablet (50 mg total) by mouth daily . 90 tablet 1 08/02/2024 ActiveStart: 02-20-2023 End: 87-84-2597gctd 1 tablet by mouth once dailymetoprolol succinate (TOPROL-XL) 25 MG 24 hr tablet Indications: Hypertensive urgency Take 1 (one) tablet (25 mg total) by mouth daily . 90 tablet 1 05/06/2023 10/13/2023 Discontinued (Dose adjustment)Start: 02-18-2023 End: 92-29-4168vcoe 50 mg by mouth once daily50 mg, Oral, Daily, First dose on Thu02/18/23 at 0900 DO NOT CRUSH OR CHEW.Start: 87-20-4957fdca 1 tablet by mouth in the morningmetoprolol tartrate (Lopressor) 50 MG tablet Take 50 mg by mouth in the morning and 50 mg in the evening. Take with meals. 09/19/2022 Active Start: 09-15-2022 End: 78-54-3018Rjzbgsvhvq tartrate 25 mg Tab 25 mg = 1 tab(s), Tab, Oral, Start date 09/15/22 9:00:00 EDT, 09/12/22 17:37:00 EDT Start Date: 09/15/22 Stop Date: 09/15/22 Status: CompletedStart: 06-03-2020 End: 45-14-4544wwsu 12.5 mg by mouth twice daily12.5 mg, Oral, 2 times daily, First dose on Thu06/03/20 at 2330Start: 01-29-2019 End: 06-05-2006fsnd 1 tablet by mouth once dailyMetoprolol Succinate 50 mg Tablet Extended Release 24 Hr Discontinued 50 MG PO Daily 0 0 January 28, 2019 11:00pm August 20, 2022 2:13amStart: 07-23-2018 End: 69-75-2590zajv 1 tablet by mouth twice dailyMetoprolol Tartrate 25 mg tablet Discontinued 25 MG PO Twice daily September 11, 2022 11:00pm February 20, 2025 11:29amStart: 08-22-2012 End: 05-91-6300Pifqpwbckk Tartrate 25 MG tablet Discontinued 12.5 MG PO TWO TIMES DAILY August 22, 2012 12:00am August 29, 2024 1:56pmmetoprolol tartrate (Lopressor) 25 MG tablet every 12 (twelve) hours Active End: 91-13-8710xkgm 1 tablet by mouth every twenty-four hoursmetoprolol [...] 0 Activemiscellaneous medical supply Mis (20 sources)Start: 27-12-1654sgfsdgvypwuoj medical supply Misc 1 each by Miscellaneous route daily . 100 each 2 12/10/2023Start: 25-70-4746quwbqixlgcnif medical supply [facility] 1 each by Miscellaneous route daily . 100 each 2 12/10/2023 SuspendedStart: 81-78-3241kdgijmmpgldws medical supply [facility] 1 each by Miscellaneous route daily . 100 each 2 12/10/2023 Activenitrofurantoin, macrocrystals 100 mg oral capsule (1 source)Nitrofuran AntibacterialStart: 10-30-2021 End: 48-55-5192qipi 1 capsule by mouth twice daily at [...] oral capsule (2 sources)Nitrofuran AntibacterialStart: 06-18-2023 End: 98-21-5648vinv 1 capsule by mouth twice dailynitrofurantoin, macrocrystal- monohydrate, (MACROBID) 100 MG capsule Take 1 (one) capsule (100 mg total) by mouth 2 (two) times a day for 7 days . 14 capsule 0 06/18/2023 06/25/2023 Active nortriptyline 25 mg oral capsule (20 sources)Tricyclic AntidepressantStart: 64-97-4983wsdx 1 capsule by mouth once daily at bedtimeNortriptyline 25 mg capsule Active 25 MG PO Daily at bedtime February 19, 2025 11:00pm Complies with drug therapyStart: 06-22-2023 End: 16-22-7894zver 1 capsule by mouth once dailynortriptyline (PAMELOR) 25 MG capsule Indications: Chronic nonintractable headache, unspecified headache type , Insomnia, unspecified type Take 1 (one) capsule (25 mg total) by mouth nightly . 90 capsule 1 08/02/2024 ActiveStart: 07-23-2018 End: 80-21-0193yqid 1 capsule by mouth once dailyNortriptyline (Pamelor) 50 mg Capsule Discontinued 50 MG PO Daily July 23, 2018 12:00am September 07, 2018 1:57pmofloxacin 3 mg/ml ophthalmic solution (7 sources)Quinolone AntimicrobialStart: 36-56-8488ynhrqlqdu (Ocuflox) 0.3 % ophthalmic solution 10/15/2022 ActiveStart: 56-46-7506amek 1 drop(s) into the eye(s) four times dailyofloxacin (Ocuflox) 0.3 % ophthalmic solution INSTILL 1 DROP INTO LEFT EYE FOUR TIMES A DAY 10/15/2022 Activeomeprazole 40 mg delayed release oral capsule (20 sources)Proton Pump InhibitorStart: 56-76-4787bfku 1 capsule by mouth once dailyomeprazole (PRILOSEC) 40 MG capsule Take 1 (one) capsule (40 mg total) by mouth daily . 90 capsule 1 07/15/2024 ActiveStart: 09-30-2021 End: 59-18-3072noue 1 capsule by mouth once dailyomeprazole 40 mg Cap-DR 40 mg = 1 cap(s), Oral, Daily, X 90 day(s), # 90 cap(s), Refills(s) 0, Pharmacy: [facility], 158, cm, 09/30/21 14:00:00 EDT, Height/Length Dosing, 112.8, kg, 09/30/21 14:00:00 EDT, Weight Dosing Start Date: 09/30/21 Stop Date: 12/29/21 Status: OrderedStart: 92-01-9541zunc 40 mg by mouth once dailyOmeprazole Magnesium [Prilosec] 40 MG Oral Daily July 23, 2018 ActiveStart: 07-23-2018 End: 72-28-0160pajq 40 mg by mouth once dailyOmeprazole Magnesium (Prilosec) 10 mg Susp,Delayed Release For Recon Discontinued 40 MG PO Daily July 23, 2018 12:00am February 20, 2025 11:03amStart: 74-91-9076iyxf 40 mg by mouth twice dailyOmeprazole Magnesium (Prilosec) 10 mg Susp,Delayed Release For Recon Active 40 MG PO Twice daily July 23, 2018 1:00amStart: 08-22-2012 End: 99-15-4769bwyc 1 capsule by mouth twice dailyomeprazole (PRILOSEC) 40 MG capsule Take 1 (one) capsule (40 mg total) by mouth 2 (two) times a day. 60 capsule 0 03/30/2023 05/06/2023 Discontinued (Therapy completed)take 2 capsules by mouth once dailyomeprazole (PRILOSEC) [address] Indications: A-fib , Syncope Take 40 mg by mouth daily. Activeomeprazole 40 mg Cap-DR (7 sources)Start: 09-30-2021 End: 45-32-0775jwrx 1 capsule by mouth once dailyomeprazole 40 mg Cap-DR 40 mg = 1 cap(s), Oral, Daily, X 90 day(s), # 90 cap(s), Refills(s) 0, Pharmacy: [facility], 158, cm, 09/30/21 14:00:00 EDT, Height/Length Dosing, 112.8, kg, 09/30/21 14:00:00 EDT, Weight Dosing Start Date: 09/30/21 Stop Date: 12/29/21 Status: OrderedStart: 44-96-8226rfwvknmtld 40 mg Cap-DR 40 mg = 1 cap(s), Oral, Daily, Control of stomach acid Start Date: 10/20/17 Status: OrderedOmnipod 5 G6 Pods, Gen 5, Crtg (20 sources)Start: 95-88-7712Hjolgbh 5 G6 Pods, Gen 5, Crtg 01/29/2024Start: 52-43-8519Mdjoctq 5 G6 Pods, Gen 5, Crtg 01/29/2024 SuspendedStart: 01-29-2024 Omnipod 5 G6 Pods, Gen 5, Crtg 01/29/2024 ActiveOmnipod 5 G6-G7 Pods, Gen 5, Crtg (20 sources)Start: 83-54-1038Abshmcr 5 G6-G7 Pods, Gen 5, Crtg 06/01/2024 Active Omnipod Insulin Refill Crtg (20 sources)Start: 77-19-1566Ziorxqc Insulin Refill Crtg 04/16/2020Start: 68-35-8360Aoeqvmc Insulin Refill Crtg 04/16/2020 SuspendedStart: 04-16-2020 Omnipod Insulin Refill Crtg 04/16/2020 ActiveStart: 17-13-0721Nqnoawr Insulin Refill Crtg24 hr paliperidone 9 mg extended release oral tablet (20 sources)Atypical AntipsychoticStart: 09-37-8311zbow 1 tablet by mouth once dailypaliperidone (INVEGA) 9 MG 24 hr tablet Take 1 (one) tablet (9 mg total) by mouth daily . 03/01/2025 ActiveStart: 25-67-8520bfsp 1 tablet by mouth every twenty-four hoursPaliperidone 9 mg tablet extended release 24hr Active 9 MG PO February 19, 2025 11:00pm Complieswith drug therapyStart: 07-27-2024 End: 92-75-4194fjbu 1 tablet by mouth once dailypaliperidone (INVEGA) 6 MG 24 hr tablet Take 1 (one) tablet (6 mg total) by mouth daily . 07/27/2024 03/16/2025 Discontinued (Dose adjustment)pantoprazole 40 mg delayed release oral tablet (20 sources)Proton Pump InhibitorStart: 47-29-7673bsqq 1 tablet by mouth once Pantoprazole 40 mg tablet,delayed release (DR/EC) Active 40 MG PO Once February 19, 2025 11:00pmComplies with drug therapyStart: 07-31-2023 End: 77-30-1286mida 1 tablet by mouth once dailypantoprazole (PROTONIX) 40 MG tablet Indications: Gastroesophageal reflux disease, unspecified whether esophagitis present Take 1 (one) tablet (40 mg total) by mouth daily . 90 tablet 1 08/02/2024 ActiveStart: 04-09-2023 End: 86-39-9049hefj 1 tablet by mouth once dailypantoprazole (PROTONIX) 40 MG tablet Indications: Gastroesophageal reflux disease, unspecified whether esophagitis present Take 1 (one) tablet (40 mg total) by mouth daily . 90 tablet 1 05/15/2023 ActiveStart: 03-30-2023 End: 04-98-0530nbdenualxbop (PROTONIX) EC tablet 40 mgStart: 02-18-2023 End: 96-82-2441jubv 40 mg by mouth once daily before waediteop58 mg, Oral, Every morning before breakfast, First dose on 02/18/23 at 0730 DO NOT CRUSH OR CHEW.Start: 10-12-1967gmki 1 tablet by mouth once dailypantoprazole 40 mg Oral EC Tab 40 mg = 1 tab(s), Oral, Daily, # 30 tab(s), Refills(s) 0 Start Date: 04/07/22 Status: OrderedStart: 82-67-4061qita 1 tablet by mouth once daily pantoprazole 40 mg Oral EC Tab 40 mg = 1 tab(s), Oral, Daily, # 30 tab(s), Refills(s) 0 Start Date:04/07/22 Status: OrderedStart: 06-03-2020 End: 85-77-4221viuc 40 mg by mouth twice daily40 mg, Oral, 2 times daily, First dose on Thu06/03/20 at 2100 DO NOT CRUSH OR CHEW.take 1 dose by mouth once daily before breakfastpantoprazole Sodium 40 MG Pack Take 1 packet by mouth every morning before breakfast. ActivePen [place] 10/07 (2 sources)Start: 44-04-1178Wpr [place] 10/07 as directed twice daily Feb, Activepetrolatum 0.57 mg/mg / zinc oxide 0.17 mg/mg paste (20 sources)Start: 94-43-7951lisy oxide-white petrolatum 17-57 % Pste Apply 1 Application topically daily . 113 g 2 08/02/2024 Activepolyethylene glycol 3350 61525 mg powder for oral solution (20 sources)Osmotic LaxativeStart: 86-37-6512Xdrjvujaaspt Glycol 3350 17 gram powder in packet Active GM August 29, 2024 12:00amStart: 98-04-6806ehdanclcrwtv glycol (MIRALAX) 17 gram powder Take 17 (seventeen) g by mouth daily as needed (constipation) . 100 packet 1 08/02/2024 ActiveStart: 02-11-2024 End: 06-07-4552vgbdlebcbdyz glycol (GLYCOLAX) 17 gram/dose powder Take 17 (seventeen) g by mouth daily . 510 g 2 02/11/2024 03/22/2024 Discontinued (Therapy completed)Start: 10-13-2023 End: 93-02-9018insqqvtxsgbm glycol (GLYCOLAX) 17 gram/dose powder Take 17 (seventeen) g by mouth daily as needed (constipation) . 238 g 1 02/11/2024 02/11/2024 Discontinued (Duplicate order (Suppress CancelRx Message to Pharmacy))Start: 26-99-9830SlszDog oral powder for reconstitution 17 gram, Oral, Daily, 255 gram, Refill(s) 0, dissolve in water before taking, [facility], 158, cm, 11/04/21 11:29:00 EDT, Height/Length Dosing, 113, kg, 11/04/21 11:29:00 EDT, Weight Dosing Start Date: 11/11/21 Status: OrderedStart: 09-07-2018 End: 25-54-8651Oetsbvndjgza Glycol 3350 (Miralax) 17 gram/dose Powder Discontinued 17 GM PO Daily September 06, 201811:00pm March 24, 2019 7:33am prednisoLONE acetate 10 mg/ml ophthalmic suspension (7 sources)CorticosteroidStart: 74-53-5492iacjjoklCEOB acetate (Pred-Forte) 1 % ophthalmic suspension 10/15/2022 ActiveStart: 38-28-5390prbh 1 drop(s) into the eye(s) four times dailyprednisoLONE acetate (Pred-Forte) 1 % ophthalmic suspension INSTILL 1 DROP INTO LEFT EYE FOUR TIMESA DAY 10/15/2022 Active predniSONE 20 mg oral tablet (1 source)Start: 10-09-2021 End: 31-03-9735rnwt 3 tablets by mouth once dailypredniSONE 20 mg Tab 60 mg = 3 tab(s), Oral, Daily, X 5 day(s), # 15 tab(s), Refills(s) 0, Pharmacy: [facility], 158, cm, 10/09/21 15:33:00 EDT, Height/Length Dosing, 112.8, kg, 10/09/21 15:33:00 EDT, Weight Dosing Start Date: 10/09/21 Stop Date: 10/14/21 Status: Orderedpregabalin 75 mg oral capsule (20 sources)Start: 10-72-6019rpjn 1 capsule by mouth once dailyPregabalin 75 mg capsule Active 75 MG PO Daily February 19, 2025 11:00pm Complies with drug therapyStart: 12-03-2024 End: 38-18-5166wtwd 100 mg by mouth once mg, oral, Nightly, First dose on Thu12/03/24 at 2200, Look-alike/sound-alike medication. Verifyindication for useStart: 07-14-2024 End: 78-77-8118csys 1 capsule by mouth twice dailypregabalin (LYRICA) 75 MG capsule Indications: DDD (degenerative disc disease), lumbar , Lumbar radi culopathy Take 1 (one) capsule (75 mg total) by mouth 2 (two) times a day (Days supply per fill: 30) . 60 capsule 03/21/2025 04/20/2025 ActiveStart: 01-13-2024 End: 74-77-5451kpkr 1 capsule by mouth twice dailypregabalin (LYRICA) 75 MG capsule Indications: DDD (degenerative disc disease), lumbar , Lumbar radi culopathy Take 1 (one) capsule (75 mg total) by mouth 2 (two) times a day (Days supply per fill: 30) Start: 06/12/24. 60 capsule 06/12/2024 07/12/2024 Discontinued (Reorder (Suppress CancelRx Messageto Pharmacy))Start: 01-12-2024 End: 36-01-7879mcmr 150 mg by mouth once reigk390 mg, Oral, Nightly, First dose on Thu01/12/24 at 2300Start: 12-08-2023 End: 57-67-9412yopu 1 capsule by mouth twice dailypregabalin (LYRICA) 75 MG capsule Indications: DDD (degenerative disc disease), lumbar , Lumbar radi culopathy Take 1 (one) capsule (75 mg total) by mouth 2 (two) times a day (Days supply per fill: 30) . 60 capsule 12/08/2023 01/11/2024 Discontinued (Reorder (Suppress CancelRx Message to Pharmacy))Start: 03-29-2023 End: 59-28-6750cyqo 75 mg by mouth twice daily75 mg, Oral, 2 times daily, First dose on Thu03/29/23 at 2100Start: 02-20-2023 End: 71-88-2531sfxo 3 capsules by mouth twice dailypregabalin (LYRICA) 25 MG capsule Indications: Seizure (HCC) Take 3 (three) capsules (75 mg total) by mouth 2 (two) times a day for 10 days . 60 capsule 0 02/20/2023 05/06/2023 Discontinued (Therapy completed)Start: 02-19-2023 End: 15-89-2754hxsbqehdoy (LYRICA) capsule 25 mgStart: 04-08-2022 End: 03-59-8906kfbj 75 mg by mouth twice daily75 mg, Oral, 2 times daily, First dose on Thu02/18/23 at 0400Start: 06-04-2020 End: 83-77-2067uevkrfrgyu (LYRICA) capsule 150 mgStart: 08-04-2019 End: 35-49-7049twbp 1 capsule by mouth at bedtimePregabalin 150 mg capsule Discontinued 150 MG PO Bedtime August 03, 2019 11:00pm February 20, 2025 11:04amStart: 78-88-8375wzsf 100 mg by mouth at bedtimePregabalin [Lyrica] 100 MG Oral Bedtime 0 January 29, 2019 ActiveStart: 01-29-2019 End: 27-69-4094Fcmpfgfwre (Lyrica) 300 mg Capsule Discontinued 100 MG PO Bedtime 0 0 January 29, 2019 10:26am August 04, 2019 5:25pm Diabetes mellitus Type 2 diabetes mellitus without complicationsStart: 09-07-2018 End: 12-34-9220prmq 1 capsule by mouth at bedtimePregabalin (Lyrica) 300 mg Capsule Discontinued 300 MG PO Bedtime 0 0 September 09, 2018 11:54am January 29, 2019 10:28am Diabetes mellitus Type 2 diabetes mellitus without complicationsStart: 07-23-2018 End: 00-60-2499dmxc 150 mg by mouth once dailyPregabalin 150 MG Oral Daily July 23, 2018 DiscontinuedStart: 07-23-2018 End: 78-55-8068Igeagzmhbp (Lyrica) 200 mg capsule Discontinued 150 MG PO Daily July 23, 2018 12:00am August 1:58pmStart: 06-15-2015 End: 15-05-0133ncnw 2 capsules by mouth three times dailyPregabalin [...] mg oral tablet (20 sources)PhenothiazineStart: 08-20-2022 End: 77-34-0853ydei 1 tablet by mouth every six hours as needed for nausea Promethazine 25 mg tablet Active 25 MG PO Q6H as needed for Nausea August 19, 2022 11:00pm Complies with drug therapyStart: 94-46-2262Ikslgfiatudh Active MG TABLET August 20, 2022 12:00amStart: 55-73-9180thwr 1 tablet by mouth three times dailypromethazine 25 mg Tab 25 mg = 1 tab(s), Oral, TID, # 15 tab(s), Refills(s) 0, Pharmacy: [facility], 157, cm, 01/24/22 10:48:00 EDT, Height/Length Dosing, 115, kg, 01/24/22 10:48:00 EDT, Weight Dosing Start Date: 01/24/22 Status: OrderedStart: 07-23-2018 End: 17-57-7459wvcz 1 tablet by mouth every six hours as needed for nausea Promethazine 25 mg Tablet Discontinued 25 MG PO Every 6 hours as needed for Nausea July 23, 2018 12:00am September 07, 2018 1:59pmpromethazine (Phenergan) 25 MG tablet every 12 (twelve) hours Activesaccharomyces boulardii 250 mg oral capsule (14 sources)Start: 58-58-0166byiy 1 capsule by mouth twice daily at mealtime Saccharomyces Boulardii 250 mg Capsule Active 250 MG PO Twice daily with meals 60 0 August 21, 2022 11:00pm Complies with drug therapy0.25 mg, 0.5 mg dose 1.5 ml semaglutide 1.34 mg/ml pen injector (3 sources)Start: 02-02-2025 End: 86-96-6557seucpc 0.5 mg by subcutaneous injection every weeksemaglutide (Ozempic, 0.25 or 0.5 MG/DOSE,) 2 MG/1.5ML solution pen-injector Indications: Type 2 diabetes mellitus with hyperglycemia, with long-term current use of insulin (HCC) Inject 0.5 mg under the skin 1 (one) time per week 4.5 mL 1 03/07/2025 08/22/2025 ActiveSharps Container - (2 sources)Start: 24-20-4664Yofceb Container - as directed for insulin pen needles/lancets/syringes as directed QID please fillwith 4 qt or 5 qt container Apr, Activeterconazole 8 mg/ml vaginal cream (7 sources)Azole AntifungalStart: 48-81-5326iyityfdafua (Terazol 3) 0.8 % vaginal cream 09/24/2022 ActiveStart: 20-63-9711vrdxalzdcle (Terazol 3) 0.8 % vaginal cream INSERT ONE APPLICATORFUL VIA VAGINAL ROUTE ONCE DAILY AT BEDTIME FOR 3 DAYS 09/24/2022 Qmwgxx93 hr timolol 5 mg/ml ophthalmic solution (20 sources)beta-Adrenergic BlockerStart: 12-15-2023 End: 37-17-4492tooy 1 drop(s) into the eye(s) once dailytimolol (TIMOPTIC) 0.5 % ophthalmic solution Administer 1 (one) drop into the left eye daily . 12/14 ActivetiZANidine 4 mg oral capsule (20 sources)Central alpha-2 Adrenergic AgonistStart: 13-11-3123pouj 1 capsule by mouth once daily at bedtime as neededTizanidine 4 mg capsule Active 4 MG PO Daily at bedtime as needed February 19, 2025 11:00pm Complies with drug therapyStart: 12-03-2024 End: 02-15-0161zhin 4 mg by mouth three times daily4 mg, oral, 3 times daily, First dose on Thu12/03/24 at 0800, Look-alike/sound-alike medication - verify indication for use.Start: 19-67-3613Iqqiewqnfs 4 mg tablet Active MG TABLET August 29, 2024 12:00amStart: 07-14-2024 End: 73-33-6278ocbx 2 tablets by mouth once dailytiZANidine (Zanaflex) 4 MG tablet Indications: DDD (degenerative disc disease), lumbar Take 2 tabs p.o. nightly . 60 tablet 3 03/21/2025 ActiveStart: 06-12-2024 End: 73-89-8432gieh 2 tablets by mouth once dailytiZANidine (Zanaflex) 4 MG tablet Indications: DDD (degenerative disc disease), lumbar Take 2 tabs p.o. nightly Start: 06/12/24. 60 tablet 06/12/2024 07/12/2024 Discontinued (Reorder (Suppress CancelRx Message to Pharmacy))Start: 04-27-2024 End: 58-75-3742uiyv 4 mg by mouth once daily4 mg, Oral, Nightly, First dose (after last modification) on Thu04/27/24 at 0200Start: 02-04-2024 End: 35-77-8666jhqt 2 tablets by mouth once dailytiZANidine (Zanaflex) 4 MG tablet Indications: DDD (degenerative disc disease), lumbar Take 2 tabs p.o. nightly . 60 tablet 05/13/2024 06/10/2024 Discontinued (Reorder (Suppress CancelRx Message to Pharmacy))Start: 02-03-2024 End: 31-27-3300rnJMTnuzxj (Zanaflex) 4 MG tablet Indications: DDD (degenerative disc disease), lumbar Take 1 (one)capsule (4 mg total) by mouth See Admin Instructions Take 2 tabs p.o. nightly . - Oral . 60 tablet 02/03/2024 02/04/2024 Discontinued (Reorder (Suppress CancelRx Message to Pharmacy))Start: 02-02-2024 End: 17-63-4356xbOQMecjbv (ZANAFLEX) 4 MG capsule Indications: DDD (degenerative disc disease), lumbar , Lumbar radiculopathy Take 1 (one) capsule (4 mg total) by mouth See Admin Instructions Take 2 tabs p.o. nightly . 60 capsule 3 03/09/2024 03/09/2024 DiscontinuedStart: 31-95-9784pxwu 2 tablets by mouth once dailytiZANidine (ZANAFLEX) 4 MG tablet Indications: Muscle spasms of both lower extremities Take 2 tabs p.o. nightly . 60 tablet 01/13/2024 ActiveStart: 01-12-2024 End: 23-49-3322yjgf 8 mg by mouth once daily8 mg, Oral, Nightly, First dose on Thu01/12/24 at 2300Start: 12-12-2023 End: 00-21-9760phao 2 tablets by mouth once dailytiZANidine (ZANAFLEX) 4 MG tablet Indications: Muscle spasms of both lower extremities Take 2 tabs p.o. nightly Start: 12/12/23. 60 tablet 12/12/2023 01/11/2024 Discontinued (Reorder (Suppress CancelRx Message to Pharmacy))Start: 57-87-6918puch 2 tablets by mouth once dailytiZANidine (ZANAFLEX) 4 MG tablet Indications: Muscle spasms of both lower extremities Take 2 tabs p.o. nightly Start: 12/12/23. 60 tablet 12/12/2023 ActiveStart: 83-44-4392ldvs 2 tablets by mouth once dailytiZANidine (ZANAFLEX) 4 MG tablet Indications: Muscle spasms of both lower extremities Take 2 tabs p .o. nightly Start: 12/12/23. 60 tablet 12/12/2023 ActiveStart: 07-01-2023 End: 60-37-6113ogfr 1 tablet by mouth twice daily as needed for muscle spasms tiZANidine (ZANAFLEX) 4 MG tablet Indications: Muscle spasms of both lower extremities Take 1 (one)tablet (4 mg total) by mouth 2 (two) times a day as needed for muscle spasms . 60 tablet Discontinued (Reorder (Suppress CancelRx Message to Pharmacy))Start: 05-06-2023 End: 59-28-3447alfb 1 capsule by mouth twice daily as needed for muscle spasms tiZANidine (ZANAFLEX) 4 MG capsule Indications: Muscle spasms of both lower extremities Take 1 (one) capsule (4 mg total) by mouth 2 (two) times a day as needed for muscle spasms (muscle spasms) . 60capsule 0 08/10/2023 08/11/2023 Discontinued (Cost of medication)Start: 04-30-2023 End: 94-09-8335ldtn 1 capsule by mouth once dailytiZANidine (ZANAFLEX) 2 MG capsule Take 1 (one) capsule (2 mg total) by mouth nightly for 7 days . 7 capsule 0 04/30/2023 05/06/2023 Discontinued (Therapy completed)Start: 02-18-2023 End: 24-16-9427orvm 12 mg by mouth once daily12 mg, Oral, Nightly, First dose on Thu02/18/23 at 2300Start: 10-06-2022 End: 45-84-9895zkyioaqbfz (ZANAFLEX) tabletStart: 24-79-0610mnVYXrnhcl (Zanaflex) 6 MG capsule 09/23/2022 ActiveStart: 09-12-2022 End: 27-71-6394spzu 2 capsules by mouth at bedtimeTizanidine 6 mg capsule Discontinued 12 MG PO Bedtime September 11, 2022 11:00pm February 20, 2025 11:07amStart: 02-88-6853qgge 12 mg by mouth at bedtimeTizanidine Active 12 MG PO Bedtime September 12, 2022 12:00amStart: 08-20-2022 End: 83-80-5711bhcy 1 tablet by mouth three times daily as needed for muscle spasmsTizanidine 4 mg tablet Discontinued 4 MG PO Three times daily as needed for Muscle Spasm August 19, 2022 11:00pm September 12, 2022 6:07amStart: 45-89-5490gcqe 3 tablets by mouth once daily at bedtimeZanaflex 4 mg Tab 12 mg = 3 tab(s), Oral, Once a day (at bedtime), # 30 tab(s), Refills(s) 1, Pharmacy: [facility], 157, cm, 12/12/21 16:54:00 EDT, Height/Length Dosing, 114.8, kg, 12/13/2215:54:00 EDT, Weight Dosing Start Date: 12/29/21 Status: OrderedStart: 51-94-9418hdtc 3 tablets by mouth once daily at bedtimeZanaflex 4 mg Tab 12 mg = 3 tab(s), Oral, Once a day (at bedtime), # 30 tab(s), Refills(s) 1, Pharmacy: [facility]5, 157, cm, 12/12/21 16:54:00 EDT, Height/Length Dosing, 114.8, kg, 12/13/2215:54:00 EDT, Weight Dosing Start Date: 12/12/21 Status: OrderedStart: 42-36-9240rcfx 3 tablets by mouth once daily at bedtime Zanaflex 4 mg Tab 12 mg = 3 tab(s), Oral, Once a day (at bedtime), # 30 tab(s), Refills(s) 0, Pharmacy: [facility], 158, cm, 10/09/21 15:33:00 EDT, Height/Length Dosing, 112.8, kg, 10/09/21 15:33:00 EDT, Weight Dosing Start Date: 10/28/21 Status: OrderedStart: 25-84-6827zdxx 3 tablets by mouth once daily at bedtimeZanaflex 4 mg Tab 12 mg = 3 tab(s), Oral, Once a day (at bedtime), # 30 tab(s), Refills(s) 0, Pharmacy: [facility], 158, cm, 09/30/21 14:00:00 EDT, Height/Length Dosing, 112.8, kg, 09/30/21 14:00:00 EDT, Weight Dosing Start Date: 09/30/21 Status: OrderedStart: 41-53-0041erei 3 tablets by mouth once daily at bedtimeZanaflex 4 mg Tab 12 mg = 3 tab(s), Oral, Once a day (at bedtime), # 30 tab(s), Refills(s) 0, Pharmacy: [facility], 157.5, cm, 07/29/21 14:55:00 EST, Height/Length Dosing, 110.1, kg, 07/29/21 14:55:00 EST, Weight Dosing Start Date: 07/31/21 Status: OrderedStart: 05-09-2020 End: 55-01-3401aeCSFngaty (ZANAFLEX) 2 MG tabletStart: 01-22-2019 End: 90-58-2293beke 3 tablets by mouth three times daily as needed for headache Tizanidine 4 mg tablet Discontinued 12 MG PO Three times daily as needed for Headache January 22, 2019 2:40pm January 29, 2019 10:28amStart: 01-22-2019 End: 01-05-2789ecak 12 mg by mouth three times dailyTizanidine Discontinued 12 MG PO Three times daily January 22, 2019 3:40pm January 29, 2019 11:28am Start: 09-07-2018 End: 99-16-8864ctqe 6 mg by mouth three times dailyTizanidine Discontinued 6 MG PO Three times daily 60 30 September 09, 2018 12:00am January 22, 2019 3:41pm Start: 09-07-2018 End: 63-34-5509bcrq 6 mg by mouth three times daily as needed for headache Tizanidine 4 mg Tablet Discontinued 6 MG PO Three times daily as needed for Headache 60 30 0 September 08, 2018 11:00pm January 22, 2019 2:41pmStart: 07-23-2018 End: 35-88-6750isst 2 tablets by mouth at bedtimeTizanidine 4 mg tablet Discontinued 8 MG PO Bedtime July 23, 2018 12:00am September 07, 2018 1:59pm Start: 07-23-2018 End: 28-61-6098aoay 8 mg by mouth at bedtimeTizanidine Discontinued 8 MG PO Bedtime July 23, 2018 1:00am September 07, 2018 2:59pmStart: 08-22-2012 End: 23-24-8301uydy 1 tablet by mouth three times dailyTizanidine (Zanaflex) 4 MG tablet Discontinued 4 MG PO THREE TIMES DAILY August 22, 2012 12:00am [facility] 2014 12:45pm End: 27-94-1955bgud 1 capsule by mouth three times daily [...] tablet (20 sources)Serotonin Reuptake InhibitorStart: 05-31-2024 End: 79-79-7362ohov 1 tablet by mouth once daily as needed for sleeptraZODone (DESYREL) 100 MG tablet Indications: Insomnia, unspecified type Take 1 (one) tablet (100 mg total) by mouth nightly as needed for sleep . 90 tablet 1 08/02/2024 ActiveStart: 04-26-2024 End: 71-12-466894 mg, Oral, Nightly PRN, sleep, Starting on 04/26/24 at 2343, May repeat times 1 in 30 minutes if still awake.Start: 10-30-2023 End: 81-16-5402qbrw 1 tablet by mouth once daily as neededtraZODone (DESYREL) 50 MG tablet Take 1 (one) tablet (50 mg total) by mouth nightly as needed . 90 t ablet 02/08/2024 ActiveStart: 03-29-2023 End: 56-08-7505gcrs 50 mg by mouth once daily as needed for sleep50 mg, Oral, Nightly PRN, sleep, Starting on 03/29/23 at 1432 To be administered 1 hour after melatonin if still awake. May repeat x 1 dose in 30 minutes if still awake.Start: 06-03-2020 End: 81-24-5254vuuo 50 mg by mouth once daily as needed for sleep50 mg, Oral, Nightly PRN, sleep, Starting on Thu02/18/23 at 0028zolpidem tartrate 5 mg oral tablet (5 sources)gamma-Aminobutyric Acid-ergic AgonistStart: 12-08-2021 End: 95-17-8396ldhb 1 tablet by mouth once daily as needed for sleepzolpidem (AMBIEN) 5 MG tablet Indications: Other insomnia Take 1 tablet by mouth nightly as needed for Sleep for up to 14 days. 7 tablet 0 12/08/2021 12/22/2021 Active Start: 06-03-2020 End: 90-75-6354ceox 5 mg by mouth once daily as needed for sleep5 mg, Oral, Nightly PRN, sleep, Starting 06/03/20 at 1750Start: 08-22-2012 End: 34-43-3322akzf 1 tablet by mouth at bedtimeZolpidem (Ambien) 10 MG tablet Discontinued 10 MG PO BEDTIME August 22, 2012 12:00am July 06, 2014 12:46pm End: 19-34-8767vfzz 1 tablet by mouth once daily as [...] mg oral tablet (3 sources)Start: 03-29-2023 End: 38-49-3253npve 1 tablet by mouth every six hours as needed for pain and zxxozkal358 mg, Oral, Every 6 hours PRN, mild pain, fever 100.4 F or greater, headaches, Starting on Thu03/29/23 at 1432Start: 12-08-2021 End: 51-04-5670dqsldnthyejiw (TYLENOL) tablet 1,000 mgStart: 06-03-2020 End: 20-74-6413zhrs 1 tablet by mouth every four hours as mg, Oral, Every 4 hours PRN, mild pain, fever 100.4 F or greater, headaches, Starting 06/03/20 at 1750acetaminophen 325 mg / HYDROcodone bitartrate 5 mg oral tablet (4 sources)Opioid AgonistStart: 01-25-2023 End: 31-01-2698kzpt 1 tablet by mouth every six hours as needed for pain HYDROcodone-acetaminophen (NORCO) 5-325 mg per tablet Indications: Pain of right lower extremity , Injury of right knee, subsequent encounter Take 1 (one) tablet by mouth every 6 (six) hours as needed for pain . 14 tablet 0 01/25/2023 02/17/2023 DiscontinuedStart: 06-26-2017 End: 85-15-2093nrpk 1 tablet by mouth once, then take 1 tablet by mouth HYDROcodone-acetaminophen (NORCO) 5-325 mg per tablet 1 tablet 1 tablet, Oral, Once, Thu06/26/17 at 2200, For 1 dose Given 06/26/2017 22:14 EST 1 tabletaluminum hydroxide 40 mg/ml / magnesium hydroxide 40 mg/ml / simethicone 4 mg/ml oral suspension (2 sources)Start: 02-18-2023 End: 09-91-8375rcrt 30 mL by mouth every four hours as needed for gastroesophageal reflux ktapizx51 mL, Oral, Every 4 hours PRN, indigestion, heartburn, Starting on Thu02/18/23 at 0028Start: 06-03-2020 End: 03-49-6472xijk 30 mL by mouth every four hours as uelrdl85 mL, Oral, Every 4 hours PRN, indigestion, Starting 06/03/20 at 1750amitriptyline hydrochloride 25 mg oral tablet (20 sources)Tricyclic AntidepressantStart: 08-19-2018 End: 26-59-7565jopm 1 tablet by mouth once daily at bedtimeAmitriptyline 25 mg Tablet Discontinued 25 MG PO Daily at bedtime September 06, 2018 11:00pm July 2:10amamoxicillin 500 mg oral capsule (10 sources)Penicillin-class AntibacterialStart: 12-01-2023 End: 49-21-7717qhpk 1 capsule by mouth three times dailyamoxicillin (AMOXIL) 500 MG capsule Indications: Upper respiratory tract infection, unspecified type Take 1 (one) capsule (500 mg total) by mouth 3 (three) times a day . 15 capsule 12/01/2023 01/12/2024 Discontinued (Therapy completed)amoxicillin 875 mg / clavulanate 125 mg oral tablet (13 sources)Penicillin-class AntibacterialStart: 07-05-2024 End: 50-22-8415iihw 1 tablet by mouth onceamoxicillin-clavulanate (AUGMENTIN) 875-125 mg per tablet Take 1 (one) tablet by mouth . 5007/15/2024 ExpiredStart: 07-05-2024 End: 63-67-7675tqbu 1 tablet by mouth in the morning, [...] 20 tablet 07/05/2024 07/15/2024 ActiveStart: 09-19-2023 End: 99-13-4911ezoq 1 tablet by mouth twice dailyamoxicillin-clavulanate (AUGMENTIN) 875-125 mg per tablet Take 1 (one) tablet by mouth 2 (two) times a day for 7 days . 14 tablet 0 09/19/2023 09/26/2023 ActiveStart: 05-04-2023 End: 10-39-4004jnre 1 tablet by mouth twice dailyamoxicillin-clavulanate (AUGMENTIN) 875-125 mg per tablet Take 1 (one) tablet by mouth 2 (two) times a day for 7 days . 14 tablet 0 05/04/2023 05/11/2023 SuspendedStart: 08-21-2022 End: 97-48-0600lauo 1 tablet by mouth every eight hoursAmoxicillin-Pot Clavulanate 500-125 mg tablet Discontinued 1 TAB PO Q8H 30 10 0 August 20, 2022 11:00pm September 12, 2022 6:00amARIPiprazole 10 mg oral tablet (2 sources)Atypical Antipsychotic End: 06-53-8654fawq 1 tablet by mouth once dailyARIPiprazole (ABILIFY) 10 MG tablet Take 10 mg by mouth daily. 0 06/05/2020 Discontinued (Stop Taking at Discharge)atorvastatin 40 mg oral tablet (20 sources)HMG-CoA Reductase InhibitorStart: 12-03-2024 End: 27-36-5220qjmm 80 mg by mouth once daily80 mg, oral, Daily, First dose on 12/03/24 at 0900, Look-alike/sound-alike medication - verify indication for use.Start: 14-73-1657mfjc 1 tablet by mouth once dailyatorvastatin (LIPITOR) 80 MG tablet Take 1 (one) tablet (80 mg total) by mouth daily . 90 tablet 1 0 08/05/2024 ActiveStart: 06-03-2020 End: 78-37-3577esrb 20 mg by mouth once daily20 mg, Oral, Nightly, First dose on 06/03/20 at 2330Start: 06-15-2015 End: 77-53-4750ujiq 1 tablet by mouth once dailyAtorvastatin 10 MG tablet Discontinued 10 MG PO DAILY June 15, 2015 1:00am August 29, 2024 1:56pm Start: 03-08-2015 End: 72-32-2326imwl 1 tablet by mouth once daily in the eveningAtorvastatin 40 mg Tablet Active 40 MG PO Every evening 30 August 21, 2022 11:00pm Complies withdrug therapyStart: 03-08-2015 End: 31-00-1315yjct 1 tablet by mouth once dailyAtorvastatin 20 mg tablet Discontinued 20 MG PO Daily July 23, 2018 12:00am August 20, 2022 2:10am bisacodyl 10 mg rectal suppository (2 sources)Stimulant LaxativeStart: 02-18-2023 End: 42-21-0055tntk 10 mg rectal route once daily as needed for himiogkhgrjw50 mg, Rectal, Daily PRN, constipation, Starting on Thu02/18/23 at 0028 Try oral medications first for constipation. Try rectal medication if oral meds are ineffective, not tolerated, or not ordered.Start: 06-03-2020 End: 06-48-7165mfdj 10 mg rectal route once daily as needed for rytqhskxupbr47 mg, Rectal, Daily PRN, constipation, Starting Thu06/03/20 at 1750 Try oral medications first forconstipation. Try rectal medication if oral meds are ineffective, not tolerated,or not ordered.Budesonide / formoterol (1 source)Corticosteroid, beta2-Adrenergic AgonistStart: 06-03-2020 End: 28-57-8925lygg 2 puff(s) by inhalation twice daily2 puff, Inhalation, 2 times daily (RT), First dose on Thu06/03/20 at 2000busPIRone hydrochloride 10 mg oral tablet (20 sources)Start: 04-27-2024 End: 80-48-5225uktn 30 mg by mouth twice daily30 mg, Oral, 2 times daily, First dose (after last modification) on Thu04/27/24 at 0900Start: 03-25-2024 End: 13-50-9835Jytxh: 01-12-2024 End: 23-36-3167mjgt 30 mg by mouth every twelve hours30 mg, Oral, Every 12 hours scheduled, First dose on Thu01/12/24 at 2200Start: 06-03-2020 End: 96-86-2346mjsYPOduz (BUSPAR) tablet 15 mgStart: 05-31-2020 End: 20-84-4719rjwLHAkgb (BUSPAR) 30 MG tablet 1 (one) tablet (30 mg total) 2 (two) times a day Starts this when done with 15 mg doses x 1 more week . 0 05/31/2020 02/17/2023 DiscontinuedStart: 05-03-2020 End: 85-65-6645yyeDHUgaa (BUSPAR) 15 MG tablet 1 (one) tablet (15 mg total) 2 (two) times a day States takes for 1more week then goes to higher dose . 0 05/03/2020 02/17/2023 Discontinuedcariprazine 6 mg oral capsule (7 sources)Atypical AntipsychoticStart: 05-31-2020 End: 55-07-7255jdek 1 capsule by mouth once dailyVraylar 6 mg cap Take 1 (one) capsule (6 mg total) by mouth daily . 0 05/31/2020 02/17/2023 DiscontinuedStart: 05-03-2020 End: 83-29-3148Frwcfwv 4.5 mg cap 4.5 mg daily . 0 05/03/2020 06/04/2020 Discontinued (Dose adjustment)cefadroxil 500 mg oral capsule (2 sources)Cephalosporin AntibacterialStart: 03-30-2024 End: 37-98-4226kyNUFracn 2000 mg injection (3 sources)Cephalosporin AntibacterialStart: 04-27-2024 End: 84-17-7212hvyd 2000 mg intravenously every eight hours2,000 mg, Intravenous, at 100 mL/hr, Every 8 hours, First dose on Thu04/27/24 at 0600, Indication: Community Acquired CellulitisStart: 06-03-2020 End: 33-88-3434bpec 2000 mg intravenous route every eight hours2,000 mg, Intravenous, at 100 mL/hr, Every 8 hours, First dose on Thu06/03/20 at 2300 Indication: Community Acquired CellulitisStart: 06-03-2020 End: 68-02-9954tbZWGsavb (ANCEF) IVPB 1 g (premix)cefdinir 300 mg oral capsule (3 sources)Cephalosporin AntibacterialStart: 04-30-2023 End: 48-25-3305ezip 1 capsule by mouth twice dailycefdinir (OMNICEF) 300 MG capsule Take 1 (one) capsule (300 mg total) by mouth 2 (two) times a day for 7 days . 14 capsule 0 04/30/2023 05/06/2023 Discontinued (Therapy completed)Start: 11-06-2021 End: 08-35-2140jjia 1 capsule by mouth every twelve hourscefdinir [...] oral capsule (12 sources)Cephalosporin AntibacterialStart: 04-28-2023 End: 81-78-2845sezu 1 capsule by mouth four times dailycephALEXin (KEFLEX) 500 MG capsule Take 1 (one) capsule (500 mg total) by mouth 4 (four) times a day for 10 days . 40 capsule 0 04/28/2023 05/06/2023 Discontinued (Therapy completed) Start: 08-05-2019 End: 59-50-3771vimz 1 capsule by mouth twice dailyCephalexin 500 mg capsule Discontinued 500 MG PO Twice daily 10 5 0 August 04, 2019 11:00pm September 22, 2019 7:10am End: 32-32-3847kuij 1 capsule by mouth four times dailycephALEXin (KEFLEX) 500 MG capsule Take 500 mg by mouth 4 (four) times a day . 0 06/05/2020 Discontinued (Stop Taking at Discharge)chlorhexidine gluconate 40 mg/ml medicated liquid soap (9 sources)Start: 09-07-2018 End: 18-92-3003Lbahyjuwojguf Gluconate (Hibiclens) 4 % Liquid Discontinued 1 APPLIC TOPICAL Twice a Week September 06, 2018 11:00pm March 24, 2019 7:29am ciprofloxacin 3 mg/ml / dexamethasone 1 mg/ml otic suspension (2 sources)Corticosteroid, Quinolone AntimicrobialStart: 05-06-2023 End: 18-75-0772nnnjxxvxkwkvv-dexAMETHasone (CIPRODEX) otic suspension Indications: Non-recurrent acute suppurativeotitis media of left ear without spontaneous rupture of tympanic membrane Administer 4 (four) dropsinto the left ear 2 (two) times a day for 7 days . 7.5 mL 0 05/06/2023 05/13/2023 Suspended cyclobenzaprine hydrochloride 10 mg oral tablet (7 sources)Muscle RelaxantStart: 06-26-2017 End: 57-53-9819xobz 1 tablet by mouth three times daily as needed for muscle spasmscyclobenzaprine (FLEXERIL) 10 MG tablet Take 1 (one) tablet (10 mg total) by mouth 3 (three) times a day as needed for muscle spasms. 15 tablet 0 06/26/2017 02/17/2023 Discontinueddexamethasone 0.75 mg oral tablet (1 source)CorticosteroidStart: 05-05-2015 End: 51-13-4908isbk 1 tablet by mouth twice dailyDexamethasone 0.75 MG tablet Discontinued 0.75 MG PO TWO TIMES DAILY May 05, 2015 1:00am June 16, 2015 12:19amdextromethorphan hydrobromide 2 mg/ml / guaiFENesin 20 mg/ml oral solution (4 sources)Uncompetitive T-sonrqj-C-aspartate Receptor Antagonist, Sigma-1 AgonistStart: 05-15-2023 End: 99-27-7175kini 5 mL by mouth every four hoursdextromethorphan-guaiFENesin 10-100 mg/5 mL Liqd Indications: Acute effusion of left ear Take 5 mL by mouth every 4 (four) hours . 118 mL 0 05/15/2023 06/22/2023 Discontinueddiclofenac sodium 0.03 mg/mg topical gel (4 sources)Nonsteroidal Anti-inflammatory DrugStart: 01-31-2023 End: 09-29-8806evachwnfxx sodium 3 % Gel Apply 1 application. topically 2 (two) times a day for 5 days . 100 g 0 01/31/2023 02/20/2023 Discontinued (Stop Taking at Discharge)take 1 tablet by mouth twice dailydiclofenac (VOLTAREN) 75 MG EC tablet Take 75 mg by mouth 2 times daily 0 Active0.4 ml enoxaparin sodium 100 mg/ml prefilled syringe (7 sources)Low Molecular Weight HeparinStart: 04-27-2024 End: 14-20-0270omewmp 40 mg by subcutaneous injection twice daily40 mg, Subcutaneous, 2 times daily, First dose on 12/4/24 at 0900, Administer in abdomen unlessotherwise directed by prescriber. Notify physician if patient refuses., Indication: VTE ProphylaxisStart: 03-30-2024 End: 75-25-3769Cgikr: 03-28-2024 End: 74-41-7934Qznny: 03-25-2024 End: 61-95-6528Eweqo: 02-20-2023 End: 00-57-9802opmwiumvet (LOVENOX) syringe 30 mgStart: 02-18-2023 End: 79-55-2996txxmww 40 mg by subcutaneous injection twice daily40 mg, Subcutaneous, 2 times daily, First dose on Thu02/18/23 at 0900 Administer in abdomen unless otherwise directed by prescriber. Notify physician if patient refuses. Indication: VTE ProphylaxisStart: 06-03-2020 End: 72-02-1334rmjbsy 40 mg by subcutaneous injection twice daily40 mg, Subcutaneous, 2 times daily, First dose on Thu06/03/20 at 2000 Administer in abdomen unless otherwise directed by prescriber. Notify physician if patient refuses. Indication: VTE Prophylaxisergocalciferol 1.25 mg oral capsule (20 sources)Provitamin D2 CompoundStart: 47-99-3638kwxynrrbohsjll 50,000 intl units Cap 50,000 International_Unit = 1 cap(s), Oral, Thursday, # 4 cap(s), Refills(s) 0 Start Date: 09/12/22 Status: OrderedStart: 08-22-2022 End: 30-41-6220sxfi 1 capsule by mouth every weekergocalciferol (Vitamin D2) 1.25 MG (97343 UT) capsule Take 1 capsule by mouth 1 (one) time per week 08/22/2022 ActiveStart: 08-22-2022 End: 26-18-8640zkun 1 capsule by mouth every weekErgocalciferol (Vitamin D2) 1,250 mcg (50,000 unit) capsule Discontinued 1250 MCG PO every week September 11, 2022 11:00pm February 20, 2025 10:57amStart: 04-08-2022 End: 35-09-3153cgpdpbpasfvuec 50,000 intl units Cap 50,000 International_Unit = 1 cap(s), Oral, q7day, X 6 week(s), # 6 cap(s), Refills(s) 0, Pharmacy: [facility], 162, cm, 04/06/22 20:38:00 EST, Height/Length Dosing, 112, kg, 04/06/22 20:38:00 EST, Weight Dosing Start Date: 04/08/22 Stop Date: 05/20/22 Status: Ordered End: 15-13-2703jebr 1 capsule by mouth every weekergocalciferol (Vitamin D2) 1,250 mcg (50,000 unit) capsule Indications: Vitamin D deficiency Take 1.25 mcg by mouth once a week . 0 09/03/2023 Discontinued (Reorder (Suppress CancelRx Message to Pharmacy))flu vacc [id number] 6mos up(PF) (FLUZONE QUAD/FLULAVAL QUAD/FLUARIX QUAD) syringe 0.5 mL (1 source)Start: 06-03-2020 End: 41-29-4949muyerq 0.5 mL by intramuscular injection every twenty-four hours as neededflu vacc [id number] 6mos up(PF) (FLUZONE QUAD/FLULAVAL QUAD/FLUARIX QUAD) syringe 0.5 mLflu vacc [id number] 6mos up(PF) (FLUZONE QUAD/FLULAVAL QUAD/FLUARIX QUAD) syringe Syrg 0.5 mL (1 source)Start: 03-29-2023 End: 93-08-1461jgkson 0.5 mL by intramuscular injection every twenty-four hours as neededflu vacc [id number] 6mos up(PF) (FLUZONE QUAD/FLULAVAL QUAD/FLUARIX QUAD) syringe Syrg 0.5 mLFLUoxetine 40 mg oral capsule (4 sources)Serotonin Reuptake InhibitorStart: 08-22-2012 End: 21-28-0572ywsh 1 capsule by mouth once dailyFluoxetine 40 MG capsule Discontinued 40 MG PO DAILY April 13, 2015 1:00am April 28, 2015 1:54amfluticasone / salmeterol (20 sources)Corticosteroid, beta2-Adrenergic Agonist End: 74-27-6887elpq 1 puff(s) by inhalation twice dailyfluticasone-salmeterol (ADVAIR [...] Inhale 1 puff 2 (two) times aday. Itvbhx09 actuat formoterol fumarate 0.005 mg/actuat / mometasone furoate 0.2 mg/actuat metered dose inhaler (1 source)Corticosteroid, beta2-Adrenergic AgonistStart: 02-18-2023 End: 56-23-6889jspk 2 puff(s) by inhalation twice daily2 puff, Inhalation, 2 times daily (RT), First dose on Thu02/18/23 at 0900FreeStyle Zeinab 2 [place] Misc (20 sources)Start: 04-01-2023 End: 16-09-2598AtzsYaerw Zeinab 2 [place] Misc Indications: Type 2 diabetes mellitus with diabetic polyneuropathy, with long-term current use of insulin (HCC) Inject 1 each under the skin 2 (two) times a day . 04/01/2023 12/02/2023 Discontinued (Alternate therapy)Start: 26-35-3599EsjpMkuoi Zeinab 2 [place] Misc Indications: Type 2 diabetes mellitus with diabetic polyneuropathy, with long- term current use of insulin (HCC) Inject 1 each under the skin 2 (two) times a day . 04/01/2023 ActiveStart: 61-05-4790TarrAxdjt Zeinab 2 [place] Misc Indications: Type 2 diabetes mellitus with diabetic polyneuropathy, with long- term current use of insulin (HCC) Inject 1 each under the skin 2 (two) times a day . 0 04/01/2023 SuspendedStart: 92-92-0049YwkjGukcc Zeinab 2 [place] Misc Indications: Type 2 diabetes mellitus with diabetic polyneuropathy, with long- term current use of insulin (HCC) Inject 1 each under the skin 2 (two) times a day . 0 04/01/2023 ActiveFreeStyle Zeinab 2 Sensor Kit (20 sources)Start: 11-12-2023 End: 90-76-4740IouyDvwhr Zeinab 2 Sensor Kit Indications: Type 2 diabetes mellitus with diabetic polyneuropathy, with long-term current use of insulin (HCC) 1 kit by Miscellaneous route every 14 (fourteen) days . 2 kit 1 11/12/2023 12/02/2023 Discontinued (Alternate therapy)Start: 73-42-2124XbnlRigxq Zeinab 2 Sensor Kit Indications: Type 2 diabetes mellitus with diabetic polyneuropathy, with long-term current use of insulin (HCC) 1 kit by Miscellaneous route every 14 (fourteen) days . 2 kit 1 11/12/2023 ActiveStart: 09-03-2023 End: 89-91-3136LihkWvrez Zeinab 2 Sensor Kit Indications: Type 2 diabetes mellitus with diabetic polyneuropathy, with long-term current use of insulin (HCC) 1 kit by Miscellaneous route every 14 (fourteen) days . 2 kit 1 09/03/2023 11/12/2023 Discontinued (Reorder (Suppress CancelRx Message to Pharmacy))Start: 03-15-3904IqqdPwuer Zeinab 2 Sensor Kit Indications: Type 2 diabetes mellitus with diabetic polyneuropathy, with long-term current use of insulin (HCC) 1 kit by Miscellaneous route every 14 (fourteen) days . 2 kit 1 09/03/2023 Active Start: 06-22-2023 End: 78-15-3835NxstGpdwc Zeinab 2 Sensor Kit Indications: Type 2 diabetes mellitus with diabetic polyneuropathy, with long-term current use of insulin (HCC) 1 kit by Miscellaneous route every 14 (fourteen) days . 2 kit 1 06/22/2023 09/03/2023 Discontinued (Reorder (Suppress CancelRx Message to Pharmacy))Start: 58-34-7246ElbaByquk Zeinab 2 Sensor Kit Indications: Type 2 diabetes mellitus with diabetic polyneuropathy, with long-term current use of insulin (HCC) 1 kit by Miscellaneous route every 14 (fourteen) days . 2 kit 1 06/22/2023 Active Start: 04-20-2023 End: 15-62-4363WdfaBjoup Zeinab 2 Sensor Kit Indications: Type 2 diabetes mellitus with diabetic polyneuropathy, with long-term current use of insulin (HCC) 1 kit by Miscellaneous route every 14 (fourteen) days . 0 04/20/2023 06/22/2023 Discontinued (Reorder (Suppress CancelRx Message to Pharmacy))Start: 69-49-9090UnmdIahta Zeinab 2 Sensor Kit Indications: Type 2 diabetes mellitus with diabetic polyneuropathy, with long-term current use of insulin (HCC) 1 kit by Miscellaneous route every 14 (fourteen) days . 0 04/20/2023 SuspendedStart: 04-64-2699XokkLdlfc Zeinab 2 Sensor Kit Indications: Type 2 diabetes mellitus with diabetic polyneuropathy, with long-term current use of insulin (HCC) 1 kit by Miscellaneous route every 14 (fourteen) days . 0 04/20/2023 Activegabapentin 100 mg oral capsule (2 sources)Anti-epileptic AgentStart: 03-31-2023 End: 39-99-6371gtct 2 capsules by mouth twice dailygabapentin (NEURONTIN) [...] initial treatment, repeat treatment. Start: 12-03-2023 End: 68-98-1179wutqjkpd (Gvoke HypoPen 2-Pack) 1 mg/0.2 mL AtIn [...] 9 mg/ml injection (1 source)Start: 12-03-2024 End: 53-61-6136kdis 250 mg intravenously every hour as uymsqm653 mL/hr, intravenous, Continuous PRN, for blood glucose 250mg/dL or less, Starting on 12/03/24at 0740, For 1 day, Once IV fluid is changed to dextrose-containing formulation, DO NOT change to wzc-qznabbny-fypejzxihk IV fluid if blood glucose exceeds 250 mg/dL.12 hr guaiFENesin 600 mg extended release oral tablet (15 sources)Start: 05-06-2023 End: 24-48-5094jxho 1 tablet by mouth onceguaiFENesin (MUCINEX) 600 mg 12 hr tablet Indications: Non-recurrent acute suppurative otitis mediaof left ear without spontaneous rupture of tympanic membrane Take 1 (one) tablet (600 mg total) by mouth every 12 (twelve) hours . 20 tablet 0 05/06/2023 06/22/2023 DiscontinuedStart: 36-68-7635sats 2 tablets by mouth twice dailyMucinex 600 mg Tab-ER 1,200 mg = 2 tab(s), Oral, BID, # 30 tab(s), Refills(s) 0, Pharmacy: [facility], 162, cm, 04/06/22 20:38:00 EST, Height/Length Dosing, 112, kg, 04/06/22 20:38:00 EST,Weight Dosing Start Date: 04/08/22 Status: Qlpmnkd88 hr guaiFENesin 600 mg / pseudoephedrine hydrochloride 60 mg extended release oral tablet (2 sources)alpha-Adrenergic AgonistStart: 05-04-2023 End: 25-09-7804rjun 1 tablet by mouth every twelve hourspseudoephedrine- [...] for use. Observe for bleeding.Start: 04-29-2024 End: 92-82-0225031 Units, Intravenous, Once, On Thu04/29/24 at 1500, For 1 dose, De-access portStart: 04-04-2024 End: 03-23-0082Dnxgn: 01-18-2024 End: 60-46-7097399 Units, Intravenous, Once, On Thu01/18/24 at 1200, For 1 dose Start: 01-18-2024 End: 18-69-0341qinbmx 5000 [IU] by subcutaneous injection every eight hours5,000 Units, Subcutaneous, Every 8 hours scheduled, First dose on Thu01/18/24 at 0900, Notify physician if patient refuses.Start: 03-30-2023 End: 72-08-3003vhviwgw, porcine (PF) injection 500 UnitsStart: 03-29-2023 End: 58-52-3330tbgahy 5000 [IU] by subcutaneous injection every eight hours5,000 Units, Subcutaneous, Every 8 hours scheduled, First dose on Thu03/29/23 at 2200 Notify physician if patient refuses.1 ml hydrALAZINE hydrochloride 20 mg/ml injection (3 sources)Arteriolar VasodilatorStart: 04-27-2024 End: 55-59-0153vgtq 10 mg intravenously every six hours as pncfik01 mg, Intravenous, Every 6 hours PRN, SBP > 180 or DBP > 100, hold for HR >100, Starting on Thu04/27/24 at 0109Start: 04-01-2024 End: 12-47-9902ksbn 10 mg intravenously every six hours as neededStart: 01-13-2024 End: 43-58-7715sbrn 10 mg intravenously every six hours as acicur31 mg, Intravenous, Every 6 hours PRN, sbp>180, Starting on Thu01/13/24 at 94481.5 ml HYDROmorphone hydrochloride 1 mg/ml prefilled syringe (1 source)Opioid AgonistStart: 06-04-2020 End: 33-16-4268jhom 0.5 mg intravenous route every three hours as needed HYDROmorphone (DILAUDID) injection 0.5 mgindomethacin 50 mg oral capsule (1 source)Nonsteroidal Anti-inflammatory DrugStart: 05-05-2015 End: 05-49-3750rnbc 1 capsule by mouth three times daily as needed for pain Indomethacin 50 MG capsule Discontinued 50 MG PO THREE TIMES DAILY as needed for Pain 15 Angelito 12th, 2015 4:39pm June 16, 2015 12:19aminhalational spacing device inhaler (20 sources)Start: 03-10-2024 End: 63-39-1262ygkrivvxrvme spacing device inhaler Use as instructed . 1 each 2 03/10/2024 03/10/2025 ExpiredStart: 03-10-2024 End: 94-45-8929heatdccsllge spacing device inhaler Use as instructed . 1 each 2 03/10/2024 03/10/2025Start: 03-10-2024 End: 80-54-4486ozyuimqxbjjp spacing device inhaler Use as instructed . 1 each 2 03/10/2024 03/10/2025 SuspendedStart: 03-10-2024 End: 07-51-9086kicvnpvsdotz spacing device inhaler Use as instructed . 1 each 2 03/10/2024 03/10/2025 Active3 ml insulin detemir 100 unt/ml pen injector (20 sources)Insulin AnalogStart: 01-29-2019 End: 61-57-7766qzfxhz 10 [IU] by subcutaneous injection once dailyInsulin Detemir U-100 (Levemir Flextouch U100 Insulin) 100 unit/mL (3 mL) Insulin Pen Discontinued 10 UNITS SUBCUT Daily 0 0 January 28, 2019 11:00pm August 05, 2019 2:09pmStart: 07-23-2018 End: 13-57-7389muznyu 70 [IU] by subcutaneous injection twice dailyInsulin Detemir U-100 (Levemir U-100 Insulin) 100 unit/mL Solution Discontinued 70 UNIT SUBCUT Twice daily July 23, 2018 12:00am September 06, 2018 8:11pminject 25 [IU] by subcutaneous injection once dailyinsulin lispro (AdmeLOG,HumaLOG) injection 0-15 Units (1 source)Start: 04-27-2024 End: 03-24-9586gxbzvnc lispro (AdmeLOG,HumaLOG) injection 0-15 UnitsInsulin Pump Cart,Auto,Bt,G6/7 (Omnipod 5 G6-G7 Pods (Gen 5)) cartridge (1 source)Start: 08-29-2024 End: 57-43-2194Hxlzufo Pump Cart,Auto,Bt,G6/7 (Omnipod 5 G6-G7 Pods (Gen 5)) cartridge Discontinued EACH SQ August 29, 2024 12:00am August 29, 2024 1:72lx533 ml insulin, regular, human 1 unt/ml injection (2 sources)InsulinStart: 12-03-2024 End: 22-83-1092zjidll 400 mg by subcutaneous injection every hour0.2-54 [...] medication. Verify indication for use.Start: 03-24-2024 End: 09-54-6040rqezswg (OMNIPAQUE) 300 MG/ML injection (1 source)Start: 10-07-2022 End: 38-97-1819ilyzeiv (OMNIPAQUE) 300 MG/ML injectionlevothyroxine sodium 0.075 mg [...] Monitor thyroid function tests weeklyStart: 04-27-2024 End: 32-64-7172vhvo 30 mL by mouth once daily75 mcg, [...] may need adjusted to meet caloric needs.Start: 02-46-0968ahfb 1 tablet by mouth once dailySynthroid 75 mcg (0.075 mg) Tab 75 mcg = 1 tab(s), Oral, Daily, # 30 tab(s), Refills(s) 0 Start Date: 04/07/22 Status: OrderedStart: 09-30-2021 End: 30-96-9613Brajjczuy 75 mcg Tab 75 mcg = 1 tab(s), Oral, Daily, take on an empty stomach from meds, vitamins, food by 60 minutes, X 90 day(s), # 90 tab(s), Refills(s) 0, Pharmacy: [facility], 158, cm, 09/30/21 14:00:00 EDT, Height/Length Dosing, 112.8, kg, 09/30... Start Date: 09/30/21 Stop Date: 12/29/21 Status: OrderedStart: 06-04-2020 End: 06-52-7837evkw 75 ug by mouth once daily75 mcg, Oral, Daily, First dose on Thu06/04/20 at 1400 For patients on continuous tube feed: Hold TF from 1 hr before until 1 hr after each dose. TF rate may need adjustment to meet caloric needs.Start: 04-26-2016 End: 43-67-5218crrv 1 tablet by mouth once dailyLevothyroxine 75 mcg tablet Active 75 MCG PO Daily July 23, 2018 12:00am Complies with drug therapy Levothyroxine Sodium (LEVOTHYROXINE PO) Take 75 tablets by mouth daily. Active lidocaine 40 mg/ml topical cream (20 sources)Antiarrhythmic, Amide Local AnestheticStart: 09-22-2023 End: 38-61-8080inlvbxyab (LMX) 4 % cream Apply topically 3 (three) times a day . 90 g 3 09/22/2023 08/02/2024 Discontinued (Therapy completed)Start: 09-07-2018 End: 87-78-1252Ojjfqmend 5 % Ointment Discontinued 1 APPLIC TOPICAL Twice daily as needed for Pain September 06, 2018 11:00pm March 24, 2019 7:31amStart: 18-61-1771Bzewm: 98-19-8588Fzecneuiw 5 % as directed Externally bid prn Jul, Activelidocaine 25 mg/ml / prilocaine 25 mg/ml topical cream (15 sources)Antiarrhythmic, Amide Local AnestheticStart: 03-22-2024 End: 55-24-6427uvkzbtfze-prilocaine (EMLA) cream Indications: Candidiasis Apply topically as needed . 30 g 1 03/22/2024 04/29/2024 Discontinued (Stop Taking at Discharge)Start: 39-88-9756zpqgzhvay-prilocaine (EMLA) 2.5-2.5 % cream Apply topically as needed for Pain Apply topically as needed. 0 Activeloperamide hydrochloride 2 mg oral capsule (15 sources)Opioid AgonistStart: 03-22-2024 End: 28-71-4693pinuhilyka (IMODIUM) 2 mg capsule Indications: Diarrhea, unspecified type Take 1 (one) capsule (2 mg total) by mouth as needed for diarrhea (Max dose 7 pills) . 20 capsule 1 03/22/2024 04/29/2024 Discontinued (Stop Taking at Discharge)Start: 07-06-2014 End: 99-04-2090qede 1 capsule by mouth four times daily as needed for diarrhea Loperamide 2 MG capsule Discontinued 2 MG PO FOUR TIMES DAILY as needed for Diarrhea July 06, 2014 1:02pm February 22, 2015 7:35pmLORazepam 0.5 mg oral tablet (1 source)Benzodiazepine End: 63-08-0757yjeu 1 tablet by mouth every eight hours as needed for anxiety LORazepam (ATIVAN) 0.5 MG tablet Take 0.5 mg by mouth every 8 hours as needed for Anxiety 0 12/08/2021 Discontinued (Therapy completed)lurasidone hydrochloride 20 mg oral tablet (20 sources)Atypical AntipsychoticStart: 11-05-2018 End: 82-10-9817Kpspannywf (Latuda) 20 mg tablet Discontinued January 21, 2019 11:00pm January 29, 2019 10:28ammagnesium hydroxide 80 mg/ml oral suspension (2 sources)Start: 02-18-2023 End: 53-33-1979ktxs 2400 mg by mouth once daily as needed for constipation2,400 mg (30 mL), Oral, Daily PRN, constipation, Starting on Thu02/18/23 at 0028 If no bowel movement in 24 hours after Sennosides (SENNA) administration.Start: 06-03-2020 End: 66-35-4969rdgk 2400 mg by mouth once daily as needed for constipation2,400 mg (30 mL), Oral, Daily PRN, constipation, For constipation., Starting 06/03/20 at 778704 ml magnesium sulfate 40 mg/ml injection (1 source)Start: 10-07-2022 End: 20-14-0828lrhazfbwd sulfate 2 GM/50ML in 50 mL ivpbmelatonin 5 mg oral tablet (3 sources)Start: 01-12-2024 End: mg, Oral, Nightly PRN, Sleep, Starting on Tu01/12/24 at 1823, If still awake in 1 hour proceed to trazodone (Desyrel)Start: 03-29-2023 End: 07-92-3258yagd 5 mg by mouth once daily as needed for sleep5 mg, Oral, Nightly PRN, Sleep, Starting on 03/29/23 at 1432 If still awake in 1 hour proceed totrazodone (Desyrel)Start: 02-18-2023 End: 51-73-0973oouw 5 mg by mouth once daily as needed for sleep5 mg, Oral, Nightly PRN, Sleep, Starting on Thu02/18/23 at 0028 If still awake in 1 hour proceed totrazodone (Desyrel)methylPREDNISolone (2 sources)CorticosteroidStart: 76-70-6246Jlpz-Medrol 40 mg Mar, 40 mg Start: 90-02-7375Osbk-Medrol 40 mg Mar, 20 mgmetoclopramide 10 mg oral tablet (10 sources)Dopamine-2 Receptor AntagonistStart: 05-13-2023 End: 47-83-2718phja 1 tablet by mouth three times daily before mealtime metoclopramide (REGLAN) 10 MG tablet Take 1 (one) tablet (10 mg total) by mouth 3 (three) times a day before meals for 10 days . 30 tablet 0 05/13/2023 08/03/2023 Discontinued (Therapy completed)metroNIDAZOLE 500 mg oral tablet (1 source)Nitroimidazole AntimicrobialStart: 07-06-2014 End: 88-59-8150spgm 1 tablet by mouth three times dailyMetronidazole (Flagyl) 500 MG tablet Discontinued 500 MG PO THREE TIMES DAILY July 06, 2014 1:00am July 06, 2014 1:01pmmicafungin sodium 100 mg injection (9 sources)Echinocandin AntifungalStart: 01-29-2019 End: 94-85-5068Qpzedjrgyu 100 mg recon soln Discontinued 100 MG IV Q24H 10 10 0 January 28, 2019 11:00pm March 24, 2019 7:33am administer over 60 mins midodrine hydrochloride 5 mg oral tablet (1 source)alpha-Adrenergic AgonistStart: 02-19-2023 End: 53-54-7902ycqtjwlcz (PROAMATINE) tablet 10 mg1 ml morphine sulfate 4 mg/ml cartridge (8 sources)Opioid AgonistStart: 04-26-2024 End: mg, Intravenous, Once, On Thu04/26/24 at 2140, For 1 doseStart: 03-24-2024 End: 00-76-1188Krbek: 03-29-2023 End: 45-05-1139tzgtxeod injection 2 mgStart: 02-17-2023 End: 83-14-7977brsezsdh syringe 4 mgStart: 06-03-2020 End: 04-80-4986qsgqtdtw syringe 4 mgStart: 06-26-2017 End: 31-75-9709otfzxdip concentrated 10 mg/0.5 ml oral syringe 10 mg 10 mg, Oral, Once, Thu06/26/17 at 1920, For 1 dose Given 06/26/2017 19:23 EST 10 mgStart: 06-15-2015 End: 53-80-8763nlwd 1 tablet by mouth once dailyMorphine 15 MG tablet extended release Discontinued 15 MG PO DAILY June 15, 2015 1:00am August 29, 2024 1:56pmStart: 03-08-2015 End: 90-46-0985axvj 1 tablet by mouth twice daily, then take 1 tablet by mouth every twelve hoursmorphine (MS CONTIN) 15 MG 12 hr tablet Take 15 mg by mouth 2 (two) times a day 0 03/08/2015 06/26/2017 DiscontinuedMuscle Relaxant (1 source)Start: 06-20-2015 End: 35-88-4004Npgjov Relaxant Discontinued DAILY June 20, 2015 1:00am August 29, 2024 1:56pmnaloxone (NARCAN) 4 mg/actuation [place] (13 sources)Start: 04-14-2024 End: 29-25-1036tizltmck (NARCAN) 4 mg/actuation [place] Administer 1 spray into one nostril for known or suspected opioid overdose. If patient worsens or does not respond, may repeat in 2-3 minutes. . 2 each 04/14/2024 08/02/2024 Discontinued (Therapy completed)Start: 78-28-2779xkkelngu (NARCAN) 4 mg/actuation [place] Administer 1 spray into one nostril for known or suspected opioid overdose. If patient worsens or does not respond, may repeat in 2-3 minutes. . 2 each 04/14/2024Start: 39-22-7819hlcjecis (NARCAN) 4 mg/actuation [place] Administer 1 spray into one nostril for known or suspected opioid overdose. If patient worsens or does not respond, may repeat in 2-3 minutes. . 2 each 04/14/2024 SuspendedStart: 11-50-5485qjbtfiji (NARCAN) 4 mg/actuation [place] Administer 1 spray into one nostril for known or suspected opioid overdose. If patient worsens or does not respond, may repeat in 2-3 minutes. . 2 each 04/14/2024 Activenaloxone (NARCAN) injection 0.1 mg (3 sources)Start: 04-27-2024 End: 77-85-4620fukyvuni (NARCAN) injection 0.1 mgStart: 01-12-2024 End: 71-94-7591zrrjplxm (NARCAN) injection 0.1 mgStart: 06-03-2020 End: 12-42-3798mfrtkcej (NARCAN) injection 0.1 mgnaratriptan 2.5 mg oral tablet (9 sources)Serotonin-1b and Serotonin-1d Receptor AgonistStart: 07-23-2018 End: 04-87-2585Mbmbiyfknge 2.5 mg Tablet Discontinued As Directed July 23, 2018 12:00am September 07, 2018 1:57pmStart: 07-23-2018 End: 93-47-2695Pgtnvqlwbcg Discontinued TABLET As Directed July 23, 2018 1:00am September 07, 2018 2:57pm24 hr nicotine 0.583 mg/hr transdermal system (2 sources)Cholinergic Nicotinic AgonistStart: 04-27-2024 End: 53-34-9738kzxvq 1 dose transdermal route once daily1 patch, Transdermal, Administer over 24 Hours, Daily, First dose (after last modification) on Thu06/28/23 at 0900, U/P Listed Hazardous Drug. Waste Must Be Disposed in [employer] Waste ContainerStart: 03-30-2024 End: 62-60-7954hgddgecihgxsu 0.4 mg sublingual tablet (4 sources)Nitrate VasodilatorStart: [...] DO NOT CRUSH OR CHEW.Start: 02-17-2023 End: 29-50-8557oesevGAFPJGDM (NITRO-BID) 2 % ointment 1 inchStart: 06-03-2020 End: .4 mg, Sublingual, Every 5 min PRN, chest pain, Starting 06/03/20 at 1750 For chest pain. May give up to 3 doses. Call physician for chest pain unrelieved by Nitroglycerin, or recurrent chest pain. DO NOT CRUSH OR CHEW.nystatin 100 unt/mg topical powder (20 sources)Polyene AntifungalStart: 03-22-2024 End: 34-95-5404sybvkmpp (MYCOSTATIN) powder Indications: Candidiasis Apply topically 2 (two) times a day . 30 g 1 03/22/2024 08/02/2024 Discontinued (Therapy completed)Start: 03-22-2024 End: 93-94-8506Zkxbp: 76-80-6916enkzyqzl (Mycostatin) ointment 10/06/2022 Active Start: 77-44-7225ejcmxxjj (Mycostatin) ointment APPLY OINTMENT TOPICALLY TWICE DAILY FOR 10 DAYS 10/06/2022 ActiveStart: 96-38-1923madjphjw (Mycostatin) cream 09/26/2022 ActiveStart: 19-86-6065mamizgvt (Mycostatin) cream APPLY CREAM TOPICALLY TO AFFECTED AREA TWICE DAILY FOR 5 DAYS 09/26/2022 Activenystatin (MYCOSTATIN) 991969 UNIT/GM cream Apply topically 2 times daily Apply topically 2 times daily. 0 Activenystatin (MYCOSTATIN) 013417 UNIT/GM powder Apply topically 4 times daily Apply topically 4 times daily. 0 ActiveOLANZapine 5 mg oral tablet (4 sources)Atypical AntipsychoticStart: 09-16-2023 End: 33-71-9966ajli 0.5 tablet by mouth twice daily as needed for anxiety OLANZapine (ZYPREXA) 5 MG tablet Take 0.5 (one-half) tablet (2.5 mg total) by mouth 2 (two) times aday As needed for anxiety . 30 tablet 0 09/16/2023 10/07/2023 Discontinued (Non-compliance (Suppress CancelRx Message to Pharmacy)) 2 ml ondansetron 2 mg/ml injection (20 sources)Serotonin-3 Receptor AntagonistStart: 12-04-2024 End: 27-26-2331vvmy 4 mg intravenously every six hours as needed for nausea and vomiting4 mg, intravenous, Every 6 hours PRN, nausea, vomiting, Starting on 7/13/25 at 1245, Intravenous administration preferred to be given over 2-5 minutes.Start: 04-27-2024 End: 24-73-0222cusk 4 mg intravenously every six hours as needed for nausea and vomiting4 mg, Intravenous, Every 6 hours PRN, nausea, vomiting, Starting on Thu04/27/24 at 0109Start: 03-25-2024 End: 00-17-9150vrus 4 mg intravenously every six hours as needed for nausea and vomitingStart: 06-18-2023 End: 59-62-8699bddj 1 tablet by mouth every eight hours as needed for nausea ondansetron (ZOFRAN-ODT) 4 MG disintegrating tablet Dissolve 1 (one) tablet (4 mg total) on top of tongue every 8 (eight) hours as needed for nausea . 20 tablet 05/26/2024 ActiveStart: 04-28-2023 End: 25-98-3177fhvu 1 tablet by mouth every six hours as needed for nausea ondansetron (ZOFRAN) 4 MG tablet Take 1 (one) tablet (4 mg total) by mouth every 6 (six) hours as needed for nausea . 20 tablet 0 04/28/2023 05/06/2023 Discontinued (Therapy completed)Start: 03-29-2023 End: 24-98-4550ckbkwndatya (ZOFRAN) injection 4 mgStart: 01-25-2023 End: 64-69-9843itdc 1 tablet by mouth every eight hours as needed for nausea ondansetron (ZOFRAN-ODT) 4 MG disintegrating tablet Dissolve 1 (one) tablet (4 mg total) on top of tongue every 8 (eight) hours as needed for nausea . 20 tablet 0 01/25/2023 02/20/2023 Discontinued (Stop Taking at Discharge)Start: 10-07-2022 End: 62-66-5117ffrxdqzkqly (ZOFRAN) 4 MG/2ML injectionStart: 12-36-8139ymrc 1 tablet by mouth every twenty-four hoursZofran 4 MG 1 tablet Orally Once a day for 30 day(s) Mar, ActiveStart: 04-64-7389qjhf 1 tablet by mouth every eight hours as needed for nauseaZofran 4 mg Tab 4 mg = 1 tab(s), Oral, q8hr, PRN Nausea/Vomiting, # 6 tab(s), Refills(s) 0, Pharmacy: [place] [id number] Start Date: 11/23/18 Status: OrderedStart: 07-23-2018 End: 79-10-4470nahi 1 tablet by mouth four times daily as needed for nausea and vomitingOndansetron 4 mg Tablet,Disintegrating Discontinued 4 MG PO Four times daily as needed for Nausea And Vomiting July 23, 2018 12:00am September 07, 2018 1:58pmStart: 07-06-2014 End: 57-93-1531mqad 2 tablets by mouth every eight hours as needed for nausea Ondansetron Hcl (Zofran) 4 MG tablet Discontinued 8 MG PO Q8H as needed for Nausea / Vomiting July 06, 2014 2:53pm February 22, 2015 7:34pm ondansetron (ZOFRAN-ODT) disintegrating tablet 4 mg (4 sources)Start: 01-12-2024 End: 27-48-5496dlmm 1 tablet by mouth every six hours as needed for nausea and vomitingondansetron (ZOFRAN-ODT) disintegrating tablet 4 mgStart: 03-29-2023 End: 20-08-9114hrbn 1 tablet by mouth every six hours as needed for nausea and vomitingondansetron (ZOFRAN-ODT) disintegrating tablet 4 mgStart: 02-18-2023 End: 98-61-0287crhf 1 tablet by mouth every six hours as needed for nausea and vomitingondansetron (ZOFRAN-ODT) disintegrating tablet 4 mgStart: 06-03-2020 End: 51-00-5780kilx 1 tablet by mouth every six hours as neededondansetron (ZOFRAN-ODT) disintegrating tablet 4 mg2 ml orphenadrine citrate 30 mg/ml injection (1 source)Muscle RelaxantStart: 06-26-2017 End: 68-91-9309sxeo 60 mg by intramuscular injection once, then take 60 mg by intramuscular injectionorphenadrine (NORFLEX) injection 60 mg 60 mg, Intramuscular, Once, 06/26/17 at 1920, For 1 dose Given 06/26/2017 19:23 EST 60 mg Left Ventroglutealoxybutynin chloride 5 mg oral tablet (20 sources)Cholinergic Muscarinic AntagonistStart: 10-20-2017 End: 66-23-0749zqhb 1 tablet by mouth twice dailyOxybutynin Chloride 5 mg Tablet Discontinued 5 MG PO Twice daily September 06, 2018 11:00pm March 24, 2019 7:33amoxyCODONE hydrochloride 5 mg oral tablet (2 sources)Opioid AgonistStart: 02-06-2015 End: 14-80-6786nfrp 1 tablet by mouth every four hours as neededoxyCODONE (ROXICODONE) immediate release tablet 5 mgpiperacillin 4000 mg / tazobactam 500 mg injection (4 sources)Penicillin-class Antibacterial, beta Lactamase InhibitorStart: 04-26-2024 End: 44.5 g, Intravenous, at 200 mL/hr, Once, On Thu04/26/24 at 2110, For 1 dose, VESICANT, Indication: Skin/Soft Tissue InfectionStart: 03-25-2024 End: 61-88-9460ndnw 3.375 g intravenously every eight hoursStart: 03-24-2024 End: 43-09-3788Myqwd: 01-12-2024 End: 73-19-5070bsxh 3.375 g intravenously every eight hours3.375 g, Intravenous, at 12.5 mL/hr, Every 8 hours, First dose on Thu01/12/24 at 2000, VESICANT, Ind ication: Skin/Soft Tissue Infectionmicroencapsulated potassium chloride 20 meq extended release oral tablet (19 sources)Start: 03-31-2024 End: 85-72-7566Exuom: 10-03-2021 End: 37-34-0714larf 1 tablet by mouth twice daily at mealtimepotassium chloride 20 mEq ER Tab 20 mEq = 1 tab(s), Oral, BID, with a full glass of water with food, X 14 day(s), # 28 tab(s), Refills(s) 0, Pharmacy: [facility], 158, cm, 09/30/21 14:00:00 EDT, Height/Length Dosing, 112.8, kg, 09/30/21 14:00:00 EDT, Weight Dosing Start Date: 10/03/21 Stop Date: 10/17/21 Status: OrderedStart: 08-05-2019 End: 18-87-8639bljxulvqe chloride 20 mEq TbER 20 mEq . 0 08/05/2019 06/05/2020 Discontinued (Stop Taking at Discharge)Start: 08-05-2019 End: 54-52-9503lvvv 1 tablet by mouth once dailypotassium chloride 20 mEq tablet Discontinued 20 MEQ PO Daily August 04, 2019 11:00pm August 05, 2019 2:09pm take 1 capsule by mouth every twenty-four hoursPotassium Chloride 10 MEQ 1 capsule with food Orally Once a day Mokuaa6790 ml potassium chloride 0.02 meq/ml / sodium chloride 9 mg/ml injection (1 source)Start: 12-03-2024 End: 46-40-1011bxor 100 mL intravenously every ixhy119 mL/hr, intravenous, Continuous, Starting on 12/03/24 at 0745, For 1 day, For blood glucose gr eater than 250mg/dL. Once IV fluid is changed to dextrose-containing formulation, DO NOT change to bvk-oemosmhz-oyjebdpjzg IV fluid if blood glucose exceeds 250 mg/dL.QUEtiapine 200 mg oral tablet (20 sources)Atypical AntipsychoticStart: 12-03-2024 End: 04-03-6296wtuo 800 mg by mouth once requy391 mg, oral, Nightly, First dose on 12/03/24 at 2200, Look-alike/sound-alike medication - verify indication for use.Start: 16-15-5967Xoxugkqlpi 400 mg tablet Active MG TABLET August 29, 2024 12:00amStart: 04-27-2024 End: 01-75-8192skir 800 mg by mouth once lmhat055 mg, Oral, Nightly, First dose (after last modification) on Thu04/27/24 at 0200, May cause QT interval prolongation.Start: 03-25-2024 End: 60-71-0120Dwprf: 01-12-2024 End: 93-29-8297lddf 800 mg by mouth once mg, Oral, Nightly, First dose on Thu01/12/24 at 2300, May cause QT interval prolongation.Start: 05-06-2023 End: 29-95-1274qwja 1 tablet by mouth once dailyQUEtiapine (SEROQUEL) 200 MG tablet Indications: Bipolar 1 disorder (HCC) , Insomnia, unspecified type Take 1 (one) tablet (200 mg total) by mouth nightly . 30 tablet 2 05/06/2023 08/03/2023 Discontinued (Dose adjustment)Start: 03-29-2023 End: 35-48-6758kuou 400 mg by mouth once okkig705 mg, Oral, Nightly, First dose on Thu03/29/23 at 2100 May cause QT interval prolongation.Start: 02-20-2023 End: 28-66-3997vdas 1 tablet by mouth once dailyQUEtiapine (SEROQUEL) 400 MG tablet Indications: Bipolar 1 disorder (HCC) , Insomnia, unspecified type Take 1 (one) tablet (400 mg total) by mouth nightly . 30 tablet 2 05/06/2023 08/03/2023 Discontinued (Reorder (Suppress CancelRx Message to Pharmacy))Start: 02-19-2023 End: 69-13-7785KWWqedbstw (SEROQUEL) tablet 200 mgStart: 02-18-2023 End: 38-85-1453fhpp 800 mg by mouth once zjkee324 mg, Oral, Nightly, First dose on Thu02/18/23 at 0400 May cause QT interval prolongation.Start: 10-06-2022 End: 56-55-3938ERChazfbly (SEROQUEL) tabletStart: 02-21-2022 End: 84-83-9562ajzf 2 tablets by mouth once daily in the eveningSEROquel XR 400 mg Tab-ER 800 mg = 2 tab(s), Oral, qPM, X 4 day(s), # 8 tab(s), Refills(s) 0, Pharmacy: [facility], 157, cm, 02/21/22 14:56:00 EDT, Height/Length Dosing, 115, kg, 02/21/22 14:56:00 EDT, Weight Dosing Start Date: 02/21/22 Stop Date: 02/25/22 Status: OrderedStart: 06-04-2020 End: 49-63-0217uvek 800 mg by mouth once esnmt449 mg, Oral, Nightly, First dose on Thu06/04/20 at 2100 May cause QT interval prolongation.Start: 08-04-2019 End: 22-35-3879ylpa 2 tablets by mouth at bedtimeQuetiapine 400 mg tablet Active 800 MG PO Bedtime August 03, 2019 11:00pm Complies with drug therapyStart: 32-85-1360migl 800 mg by mouth at bedtimeQuetiapine Active 800 MG PO Bedtime August 04, 2019 12:00amStart: 01-29-2019 End: 69-08-2772obya 2 tablets by mouth once daily at bedtimeQuetiapine 25 mg Tablet Discontinued 50 MG PO Daily at bedtime 0 0 January 28, 2019 11:00pm August 04, 2019 7:20pmStart: 01-29-2019 End: 20-99-0279ktzz 50 mg by mouth once daily at bedtimeQuetiapine Discontinued 50 MG PO Daily at bedtime 0 January 29, 2019 12:00am August 04, 2019 8:20pm Start: 07-23-2018 End: 60-82-5464tpti 600 mg by mouth at bedtimeQuetiapine Discontinued 600 MG PO Bedtime July 23, 2018 1:00am January 29, 2019 11:28amStart: 10-20-2017 End: 07-35-0059vblt 2 tablets by mouth at bedtimeQuetiapine 300 mg tablet Discontinued 600 MG PO Bedtime July 23, 2018 12:00am January 29, 2019 10:28amStart: 19-61-2211HTWldpfmlz 50 MG Tab Indications: Atrial fibrillation, unspecified [...] injection 0.4 mg (1 source)Start: 02-18-2023 End: 74-48-6609palvenezybb (LEXISCAN) injection 0.4 mgrimegepant 75 mg disintegrating oral tablet (3 sources)Start: 02-11-2024 End: 72-41-1474keziu 1 tablet topically once daily as neededRimegepant (NURTEC) 75 mg ODT Indications: Chronic nonintractable headache, unspecified headache typ e Dissolve 1 (one) tablet (75 mg total) on top of tongue daily as needed (migraine) . 4 tablet 02/11/2024 03/22/2024 Discontinued (Therapy completed)72 hr scopolamine 0.0139 mg/hr transdermal system (1 source)AnticholinergicStart: 03-25-2024 End: 05-54-6484nqbzdogpnl, halfway 8.6 mg oral tablet (4 sources)Start: 04-27-2024 End: 14-66-1985allc 1 tablet by mouth once daily17.2 mg (2 tablet), Oral, Nightly, First dose on Thu04/27/24 at 0200, For 5 daysStart: 01-12-2024 End: 74-97-3398Wtipk: 03-29-2023 End: 49-73-3826rjsm 1 tablet by mouth twice daily as needed for constipation8.6 mg (1 tablet), Oral, 2 times daily PRN, constipation, Starting on Thu03/29/23 at 1432Start: 02-18-2023 End: 54-87-1543ayfp 1 tablet by mouth twice daily as needed for constipation8.6 mg (1 tablet), Oral, 2 times daily PRN, constipation, Starting on Thu02/18/23 at 0028Sodium Chloride (20 sources)Start: 12-05-2024 End: 81-37-8980hhecov chloride 0.9 % flush 20 mLStart: 12-03-2024 End: 73-58-3583yzch 100 mL intravenously every xzbi790 mL/hr, intravenous, Continuous, Starting on 12/03/24 at [...] Starting on 12/03/24 at 0216Start: 12-03-2024 End: 98-79-2795qavu 25 mL intravenously every hour as hnhmqo38 mL, intravenous, at 100 mL/hr, Administer over 15 Minutes, As needed, line care, line care after IVPB administration, Starting on 12/03/24 at 0216Start: 04-29-2024 End: 02-64-2874Neinkrjn on Thu04/29/24 at 1345, For 1 dose, YVETTE CANCHOLA: kamlesh overrideStart: 04-26-2024 End: 05-25-2063gwtz 100 mL intravenously every veii781 mL/hr, Intravenous, Continuous, Starting on Thu04/26/24 at 2350, For 10 hoursStart: 03-26-2024 End: 99-99-9703Cyepp: 03-24-2024 End: 13-35-6031Ypjsv: 01-12-2024 End: 32-20-8839idnwae chloride (PF) (NS) flush 5 mLStart: 01-12-2024 End: 33-22-7027622 mL, Intravenous, at 1,875 mL/hr, Once, On 01/16/24 at 0630, For 1 doseStart: 03-29-2023 End: 40-07-9361ncztbh chloride (PF) (NS) flush 5 mLStart: 02-19-2023 End: 22-97-3505ctjfsf chloride 0.9% (NS)Start: 02-19-2023 End: 92-28-7945zeojdb chloride 0.9% (NS) bolus 500 mLStart: 02-18-2023 End: 79-58-4307amavqq chloride (PF) (NS) flush 5 mLStart: 06-03-2020 End: 38-50-3676ceng 100 mL intravenous route every kqoa447 mL/hr, Intravenous, Continuous, Starting 06/03/20 at 1845Start: 06-03-2020 End: 13-69-9480qrerjz chloride (PF) (NS) flush 5 mLStart: 09-22-2019 End: 07-46-6915Qgywll Chloride (Saline Wound Wash) 0.9 % aerosol,spray Discontinued 1 APPLIC TOPICAL Twice daily 210 September 21, 2019 11:00pm September 03, 2021 1:45pmsubcutaneous insulin pump Misc (1 source)Start: 01-12-2024 End: 28-47-8548Tffthzqfqdruz, Continuous, Starting on Thu01/12/24 at 2215, Select [...] Reductase Inhibitor Antibacterial, Sulfonamide AntimicrobialStart: 07-05-2024 End: 60-59-0519qoio 1 tablet by mouth twice dailysulfamethoxazole-trimethoprim (BACTRIM DS,SEPTRA DS) 800-160 mg per tablet Take 1 (one) tablet by mouth 2 (two) times a day . 07/05/2024 07/15/2024 ExpiredStart: 10-24-2022 End: 76-74-3181svnyocrzpdgkrknk-trimethoprim (Bactrim DS) 800-160 MG per tablet 10/24/2022 ActiveStart: 09-15-2022 End: 27-84-8440hexc 1 tablet by mouth every twelve hoursBactrim D.S. 800 mg-160 mg Tab 1 tab(s), Oral, q12hr, 11 tab(s), Refill(s) 0, START TONIGHT; drink p lenty of fluids, [facility], 157, cm, 09/12/22 13:52:00 EDT, Height/Length Dosing, 113, kg, 09/12/22 13:52:00 EDT, Weight Dosing Start Date: 09/15/22 Stop Date: 09/20/22 Status: OrderedStart: 05-15-2022 End: 57-20-0619gvtd 1 tablet by mouth twice dailyBactrim D.S. 800 mg-160 mg Tab 1 tab(s), Oral, BID for 7 day(s), 14 tab(s), Refill(s) 0, [facility], 157, cm, 05/15/22 16:23:00 EST, Height/Length Dosing, 113, kg, 05/15/22 16:23:00 EST, Weight Dosing Start Date: 05/15/22 Stop Date: 05/22/22 Status: Orderedtamsulosin hydrochloride 0.4 mg oral capsule (1 source)alpha-Adrenergic BlockerStart: 04-09-2022 End: 03-65-0277Grldih 0.4 mg Cap 0.4 mg = 1 cap(s), Cap, Oral, Start date 04/09/22 9:00:00 EST, 04/08/22 5:48:00 EST Start Date: 04/09/22 Stop Date: 04/09/22 Status: Completedtechnetium (Tc-99m) sestamibi (CARDIOLITE) injection 30.4 millicurie (1 source)Start: 02-18-2023 End: 93-96-6031xlsvvazsan (Tc-99m) sestamibi (CARDIOLITE) injection 30.4 millicurietechnetium (Tc-99m) sestamibi (CARDIOLITE) injection 8-25 millicurie (1 source)Start: 02-18-2023 End: 88-89-8438zsagriiwdc (Tc-99m) sestamibi (CARDIOLITE) injection 8-25 millicurietraMADol hydrochloride 50 mg oral tablet (4 sources)Opioid AgonistStart: 11-28-2022 End: 71-51-3916mxlo 1 tablet by mouth every eight hours as needed for pain Tramadol 50 mg tablet Discontinued 50 MG PO Q8H as needed for pain 7 3 November 28, 2022 12:00am 2024 1:56pmStart: 22-24-3507ikrc 1 tablet by mouth once daily as needed for paintraMADOL 50 mg Tab 50 mg = 1 tab(s), Oral, Daily, PRN for pain, # 30 tab(s), Refills(s) 0 Start Date: 09/12/22 Status: Orderedurea 400 mg/ml topical cream (7 sources)Start: 10-23-2023 End: 53-31-1377oghk (CARMOL) 40 % Crea Apply 1 application. topically 2 (two) times a day . 85 g 3 10/23/2023 11/22/2023 ExpiredUrea (CARMOL 40 EX) Apply topically. Activedivalproex sodium 500 mg delayed release oral tablet (20 sources)Mood Stabilizer, Anti-epileptic AgentStart: 01-12-2024 End: 54-83-0532eyxj 500 mg by mouth every twelve mg, Oral, Every 12 hours scheduled, First dose on Thu01/12/24 at 2200, CATEGORY D HAZARDOUS DRUG use safe handling precautions. Use reference link to view PPE guidelines. DO NOT CRUSH OR CHEW.Start: 06-03-2020 End: 95-11-7675ijdemtjorn (DEPAKOTE) delayed release (DR) tablet 500 mgStart: 06-42-5931ktcq 1 tablet by mouth twice dailydivalproex sodium 500 mg ER Tab 500 mg = 1 tab(s), Oral, BID, Refills(s) 0, Seizure Start Date: 11/05/18 Status: OrderedStart: 09-09-2018 End: 11-02-1722hgna 1 tablet by mouth twice dailyDivalproex 500 mg Tablet,Delayed Release (Dr/Ec) Discontinued 500 MG PO Twice daily 60 30 0 September 08, 2018 11:00pm August 20, 2022 2:10am Intractable seizure disorder Epilepsy, unspecified, intractable, without status epilepticusStart: 09-07-2018 End: 16-80-0848qrro 1 tablet by mouth twice dailyDivalproex 250 mg Tablet,Delayed Release (Dr/Ec) Discontinued 250 MG PO Twice daily September 06, 2018 11:00pm September 09, 2018 12:79ln962 ml vancomycin 5 mg/ml injection (10 sources)Glycopeptide AntibacterialStart: 03-25-2024 End: 14-48-8069qnvo 1250 mg intravenously every twenty-four hoursStart: 01-29-2019 End: 67-98-5664zqup 1 g intravenously every eight hoursVancomycin 1.5 gram recon soln Discontinued 1 GM IV Q8H 10 10 January 28, 2019 11:00pm 2018 7:31amStart: 01-29-2019 End: 25-59-6556njom 1 g intravenously every eight hoursVancomycin Discontinued 1 GM IV Q8H 10 10 January 29, 2019 12:00am March 24, 2019 8:31am24 hr venlafaxine 150 mg extended release oral capsule (20 sources)Serotonin and Norepinephrine Reuptake InhibitorStart: 20-56-8996zuak 1 capsule by mouth once dailyvenlafaxine 150 mg Cap-ER 150 mg = 1 cap(s), Oral, Daily, Depression Start Date: 10/20/17 Status: OrderedStart: 10-20-2017 End: 74-60-5054lkyi 1 capsule by mouth once dailyVenlafaxine 150 mg capsule,extended release 24hr Discontinued 150 MG PO Daily July 23, 2018 12:00am March 24, 2019 7:33amvitamin b12 1 mg oral tablet (20 sources)Vitamin A66Wpeso: 09-03-2023 End: 13-65-2224aood 1 tablet by mouth once dailycyanocobalamin (B-12) 1000 MCG tablet Indications: [facility] Take 1 (one) tablet (1,000 mcg total) by mouth daily Reasons: [facility]. 90 tablet 1 02/11/2024 03/22/2024 Discontinued (Therapy completed)take 1 tablet by mouth once dailycyanocobalamin 500 MCG tablet Take 1 tablet by mouth daily. Activezinc oxide 50 mg/ml topical cream (1 source)Start: 08-02-2024 End: 62-04-3242qedk oxide 5 % Crea Apply 1 Application topically daily . 177.4 mL 08/02/2024 08/02/2024 Discontinued (Therapy completed)zonisamide 100 mg oral capsule (10 sources)Anti-epileptic AgentStart: 07-23-2018 End: 87-58-4458zexd 200 mg by mouth at bedtimeZonisamide 200 MG Oral Bedtime July 23, 2018 DiscontinuedStart: 07-23-2018 End: 24-43-6079tgvb 1 capsule by mouth at bedtimeZonisamide (Zonegran) 100 mg Capsule Discontinued 200 MG PO Bedtime July 23, 2018 12:00am September 07, 2018 2:00pmtake 2 capsules by mouth once dailyzonisamide (ZONEGRAN) 100 MG capsule Take 200 mg by mouth daily 0 Active (6 sources)Start: 04-01-2024 End: 74-69-0828Vshud: 03-27-2024 End: 04-04-2024[Order 1 Start] Name: insulin [...] intended for KVO.[Order 4 End]Start: 03-24-2024 End: 93-43-1466Jsfve: 03-24-2024 End: 04-04-2024[Order 1 Start] Name: Insert [...] kidney; Translations: [SOLO (acute kidney injury)] Onset: 177627-22-4678Gqcil bronchitis (1 source)Acute bronchitis; Translations: [Acute bronchitis, unspecified]Onset: 80-87-3792EttgcaymGhntu cerebrovascular disease (1 source)Lacunar infarction; Translations: [Other cerebral infarction due to occlusion or stenosis of small artery]08-36-0299KcyuhmxLpkgv myocardial infarction (2 sources)Non-ST elevation (NSTEMI) myocardial infarction; Translations: [Non- ST elevation (NSTEMI) myocardial infarction]Onset: 82-91-9807TssfxtdTghhjbjvdo disorders (1 source)Family tension; Translations: [Reaction to severe stress, unspecified] ChronicAdministrative/social admission (4 sources)Encounter for issue of repeat prescription; Translations: [Drug seeking behavior ]Onset: 235303-96-5498JkdurlfxUzhitsq disorders (20 sources)Anxiety; Translations: [Psychogenic syncope]Onset: 02-16-2008 65-52-6404RaurghmVebwjglai and vision defects (20 sources)Visual impairment; Translations: [Unqualified visual loss, left eye, normal vision right eye]Onset: 360777-63-8532AprmjpcDsmsufnsv and vision defects (7 sources)Eye / vision finding; Translations: [Unspecified visual disturbance] Onset: 327489-39-8082QsvxmpzuXxvnb (1 source)BurnEpisodicCalculus of urinary tract (20 sources)Kidney xfusb99-65-2930LleelyylZmelzkp dysrhythmias (20 sources)Sustained ventricular tachycardia; Translations: [Sinus node dysfunction]Onset: 290032-94-9965XlfvpfuCmaesvui (1 source)Artificial lens present; Translations: [Presence of intraocular lens] 24-92-6018SmafrtyIujhpht kidney disease (20 sources)Chronic kidney disease; Translations: [Chronic kidney disease, unspecified]Onset: 196223-99-7506JebxevtTzmbkyo obstructive pulmonary disease and bronchiectasis (20 sources)Acute exacerbation of chronic obstructive airways disease; Translations: [Chronic obstructive pulmonary disease with (acute) exacerbation] Onset: 98-55-9838TsibrpuCrobkpq ulcer of skin (10 sources)Non-pressure chronic ulcer of other part of left foot with unspecified severity; Translations: [Non-pressure chronic ulcer of other part of right foot with fat layer exposed]Onset: 587823-71-9465GylacdrIyqxyaphnd disorders (20 sources)Cardiac pacemaker in situ; Translations: [Presence of cardiac pacemaker]Onset: 974707-91-1061YgeltkwKqnmqlybho heart failure; nonhypertensive (17 sources)Heart failure; Translations: [Heart failure, unspecified]Onset: 623417-16-1357UrydyojUvmwmijh atherosclerosis and other heart disease (2 sources)Coronary atherosclerosis; Translations: [Atherosclerotic heart disease of [place] coronary artery without angina pectoris]Onset: 09-02-2021 ChronicDiabetes mellitus with complications (20 sources)Type II diabetes mellitus uncontrolled; Translations: [Neuropathy due to diabetes mellitus]Onset: 11-30-2014 Resolved: 554320-58-5000AmchzumOpnvcnxb mellitus without complication (20 sources)Type 2 diabetes mellitus; Translations: [Diabetes mellitus]Onset: 904254-09-5493GtscsvkGvjexgocr of lipid metabolism (20 sources)Dyslipidemia; Translations: [Hyperlipidemia]Onset: 03-31-2017 56-92-4362UjhflgiE Codes: Fall (4 sources)Unspecified fall, initial encounter; Translations: [Fall]Onset: 674514-58-5935CbynwfsoZzvkyiaf; convulsions (9 sources)Seizure disorder; Translations: [Epilepsy, unspecified, not intractable, without status epilepticus]Onset: 660334-33-3803Kzgbpqn Epilepsy; convulsions (20 sources)Seizure; Translations: [1 to 12 seizures a year]Onset: 06-13-2008 Resolved: 923990-90-4654LvcxfkxmGdacpqz on above:last 2 weeks just staring spells has been 6last 2 weeks just staring spells has been 6Esophageal disorders (20 sources)Gastroesophageal reflux disease; Translations: [Gastroesophageal reflux disease without esophagitis]Onset: 427521-20-4036OildeqnVzydijbxq hypertension (20 sources)Hypertensive disorder; Translations: [Essential hypertension]Onset: 256176-93-5084MmombgnIiqbtweny and duodenitis (2 sources)Gastritis; Translations: [Gastritis, unspecified, without bleeding] EpisodicGastroduodenal ulcer (except hemorrhage) (20 sources)Gastric fakkr02-08-1782YsabxukMwgedsbenctqn symptoms and ill-defined conditions (20 sources)Urinary incontinence; Translations: [Unspecified urinary incontinence]Onset: 662648-61-6993OhlohyxOlmoyaelzpgat symptoms and ill- defined conditions (20 sources)Dysuria; Translations: [Personal history of urinary (tract) infections]Onset: 611927-73-2919YzenmfnvNhikcenh (1 source)Ocular hypertension, left eye; Translations: [Ocular hypertension] 30-08-6028PfkfegwKbsaiedq; including migraine (1 source)Migraine, unspecified, not intractable, without status migrainosus; Translations: [MIGRAINE UNS NOTINTRACT W/O SM]Onset: 68-87-2577MuukcxxVtxwgsrr; including migraine (6 sources)Headache; including migraine; Translations: [HEADACHE UNSPECIFIED] Onset: 84-67-2470Winyhtrthtkw with complications and secondary hypertension (20 sources)Hypertensive heart failure; Translations: [Hypertensive heart disease with heart failure]Onset: 640558-15-4495DhoqrbyOqqunuycq arthritis and osteomyelitis (except that caused by tuberculosis or sexually transmitted di sease) (20 sources)Osteomyelitis of forefoot; Translations: [Osteomyelitis, unspecified]Onset: 160110-39-4975MwstiscWvez effects of cerebrovascular disease (4 sources)Neurogenic bladder as late effect of cerebrovascular accident; Translations: [Other sequelae of cerebral infarction]85-78-5602IjpahxeNvgtdth and fatigue (20 sources)Left hemiparesis; Translations: [Weakness]Onset: 03-04-2022 88-73-9249ZxeqonypVczropbxqg disorders (1 source)Hormone replacement therapy; Translations: [HORMONE REPLACEMENT THERAPY]Onset: 29-59-2282RuuwuwfrVurtwxiudfeif mental health disorders (5 sources)Confusional state; 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]Onset: 09-52-3770IsgjupoIcct disorders (20 sources)Bipolar I disorder; Translations: [Bipolar disorder]Onset: 547773-93-3290UttqmlaEnlnryeqa of unspecified nature or uncertain behavior (20 sources)Neoplasm of dcbzaz09-76-1708IndpzgveNocmtwfqosthm gastroenteritis (1 source)Gastroenteritis; Translations: [Noninfective gastroenteritis and colitis, unspecified]EpisodicNutritional deficiencies (20 sources)Vitamin D deficiency; Translations: [Vitamin D deficiency, unspecified]Onset: 337195-55-1809IaqcotxRcrx wounds of extremities (3 sources)Laceration of finger without foreign body; Translations: [Laceration without foreign body of left index finger without damage to nail, initial encounter]Onset: 02-57-8807JlhzzihzAoej wounds of head; neck; and trunk (2 sources)Unspecified open wound of abdominal wall, unspecified quadrant without penetration into peritoneal cavity, initial encounter; Translations: [Wound dehiscence]Onset: 046093-30-3307HafubvjsCjcmcubekbpwhc (20 sources)Arthritis; Translations: [Osteoarthritis]Onset: ChronicOther aftercare (4 sources)Long-term current use of insulin; Translations: [shelter (current) use of insulin]02-73-2640LksorfzzQudyr aftercare (1 source)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; Translations: [METER TESTER POLYPHASE CURRENT USE OF ASPIRIN]Onset: 60-50-6127HhuvycvaWvrqd aftercare (1 source)shelter (current) use of oral hypoglycemic drugs; Translations: [LONGTERM USE ORAL HYPOGLYCEMIC DX]Onset: 20-27-5916CxnktooyOhloo circulatory disease (2 sources)Device in situ; Translations: [Presence of other vascular implants and grafts]ChronicOther circulatory disease (4 sources)Hypothenar hammer syndrome; Translations: [Other specified peripheral vascular diseases]Onset: 530754-37-0388QgpbdaqTjqjw circulatory disease (1 source)Other specified peripheral vascular diseases; Translations: [Other specified peripheral vascular diseases]Onset: 24-93-1021DewemjtXhkqi circulatory disease (1 source)History of cardiac arrest; Translations: [Personal history of sudden cardiac arrest]Onset: 22-40-0015YruiegvfYcyds circulatory disease (1 source)History of cerebrovascular disease; Translations: [Personal history of other diseases of the circulatory system]Onset: 87-99-4086LhxdxusrKihbr circulatory disease (1 source)History of transient ischemic attack; Translations: [Personal history of transient ischemic attack (TIA), and cerebral infarction without residual deficits]Onset: 38-61-7448HgxoobedIabnt connective tissue disease (20 sources)Plantar cnqmybrjr87-30-9366KzzpnhvyVnxrd connective tissue disease (1 source)Plantar fascial fibromatosis; Translations: [Plantar fascial fibromatosis]Onset: 87-90-1226VtjaupixWlwtx connective tissue disease (2 sources)Recurrent falls ; Translations: [Repeated falls]EpisodicOther connective tissue disease (7 sources)Pain in left toe(s); Translations: [Pain in limb]Onset: 09-07-2022 09-30-7131VzfxahkgLphlw connective tissue disease (1 source)Musculoskeletal symptom; Translations: [Other symptoms and signs involving the musculoskeletal system]Onset: 29-70-2798JwccltxbRyflr connective tissue disease (1 source)Muscle weakness of limb; Translations: [Other symptoms and signs involving the musculoskeletal system]EpisodicOther connective tissue disease (1 source)Fibromyalgia; Translations: [FIBROMYALGIA]Onset: 25-94-4680Yznhspkj Other connective tissue disease (3 sources)Neuralgia and neuritis, unspecified; Translations: [NEURALGIA AND NEURITIS UNSPECIFIED]Onset: 41-94-4234PgjryxokWpkgy connective tissue disease (20 sources)Disorder of lower extremity; Translations: [Other muscle spasm] Onset: 017494-58-9812SdfqflhkClygi connective tissue disease (1 source)Pain of left lower leg; Translations: [Pain in left lower leg] 01-53-8004ZcojaxquDclqg connective tissue disease (1 source)Pain of toe of left foot; Translations: [Pain in left toe(s)] 14-60-3257FiapyvchJbxpu connective tissue disease (1 source)Pain of left hand; Translations: [Pain in left hand]80-35-8972Pcusxoqe Other connective tissue disease (2 sources)Pain in left hand; Translations: [Pain in left hand]Onset: 02-23-2025 EpisodicOther ear and sense organ disorders (1 source)Hearing loss in left ear; Translations: [Unspecified hearing loss, left ear]05-90-1375YfumbneSihmq eye disorders (1 source)StaringChronicOther eye disorders (1 source)Disorder of lacrimal gland; Translations: [Dry eye syndrome of bilateral lacrimal glands]78-08-1670QpzlncqtSqwtr gastrointestinal disorders (20 sources)Diarrhea; Translations: [Diarrhea, unspecified]Onset: 05-25-2015 52-86-3222HgghlpknNxwup gastrointestinal disorders (2 sources)Dysphagia; Translations: [Dysphagia, unspecified]EpisodicOther gastrointestinal disorders (4 sources)Constipation, unspecified; Translations: [CONSTIPATION UNSPECIFIED] Onset: 26-76-8818AlqkzzvvFdbjq hereditary and degenerative nervous system conditions (20 sources)Restless legs; Translations: [Restless legs syndrome]Onset: 937914-33-3210DrywyweQgjza hereditary and degenerative nervous system conditions (1 source)Restless legs syndrome; Translations: [RESTLESS LEGS SYNDROME]Onset: 17-98-3165EgytnkuXsrmy infections (4 sources)Personal history of Methicillin resistant Staphylococcus aureus infection; Translations: [History of MRSA infection]Onset: EpisodicOther injuries and conditions due to external causes (1 source)Systemic inflammatory response syndrome; Translations: [Systemic inflammatory response syndrome (SIRS) of non-infectious origin without acute organ dysfunction]23-24-5144GefongnjKpeke lower respiratory disease (20 sources)Cough; Translations: [Subacute cough]Onset: EpisodicOther lower respiratory disease (1 source)Pleuritic pain; Translations: [Pleurodynia]99-49-2193LdufmtebZqfbs nervous system disorders (20 sources)Chronic pain; Translations: [Other chronic pain]Onset: 09-30-2021 ChronicOther nervous system disorders (2 sources)Neuropathy; Translations: [Polyneuropathy, unspecified]ChronicOther nervous system disorders (18 sources)PolyneuropathyOnset: 651199-94-3618TjpqlfaCrcjk nervous system disorders (1 source)Disorder of brain; Translations: [Encephalopathy, unspecified]Onset: 15-73-2591AfwcnmeCbwvx nervous system disorders (9 sources)Other chronic pain; Translations: [OTHER CHRONIC PAIN]Onset: 13-58-8144UnpvjuaBuhyc nervous system disorders (20 sources)Chronic pain syndrome; Translations: [Chronic pain syndrome]Onset: 094938-16-8402KpqzwwcPlknk nervous system disorders (1 source)Chronic pain syndrome; Translations: [Chronic pain syndrome]Onset: 00-71-6906PnhljijKktvv nervous system disorders (8 sources)Abnormal gait; Translations: [Unspecified abnormalities of gait and mobility]55-37-6866EibfvcckUqbov nervous system disorders (1 source)H/O: brain disorderEpisodicOther nervous system disorders (1 source)Skin sensation disturbance; Translations: [Anesthesia of skin]Episodic Other non-traumatic joint disorders (20 sources)Ankle gxctegkmitp80-65-3792XpwdjyazDvioh non-traumatic joint disorders (20 sources)Instability of joint of left ankle; Translations: [Other instability, left ankle]Onset: 46-30-7689TawndyhkKdyfb non-traumatic joint disorders (20 sources)Pain in right knee; Translations: [Pain in joint, lower leg]Onset: 505833-46-6126NnbjadibPgwmi nutritional; endocrine; and metabolic disorders (5 sources)Hypomagnesemia; Translations: [Disorders of magnesium metabolism] Onset: 815117-45-5622QiustqxDolhr nutritional; endocrine; and metabolic disorders (20 sources)Obesity; Translations: [Obesity, unspecified]Onset: 11-04-2021 00-07-1998RzuzjcqJqmwg nutritional; endocrine; and metabolic disorders (20 sources)Morbid obesity; Translations: [Morbid (severe) obesity due to excess calories]Onset: 47-75-8589PeztbfmUkcyb nutritional; endocrine; and metabolic disorders (20 sources)Body mass index 40+ - severely obese; Translations: [Body mass index (BMI) 45.0-49.9, adult]Onset: 71-14-7286NrccwwlTksrl nutritional; endocrine; and metabolic disorders (2 sources)Obese class II; Translations: [Body mass index (BMI) 36.0-36.9, adult]ChronicOther nutritional; endocrine; and metabolic disorders (1 source)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; Translations: [Lactose intolerance, unspecified]Onset: 74-39-7378RaaykkbRyavh nutritional; endocrine; and metabolic disorders (15 sources)Intolerance to qgfayyl48-96-7249DojfibjAkybx nutritional; endocrine; and metabolic disorders (6 sources)Hypomagnesemia; Translations: [Hypomagnesemia]Onset: 01-09-2022 ChronicOther nutritional; endocrine; and metabolic disorders (4 sources)Hypophosphatemia; Translations: [Other disorders of phosphorus metabolism]45-06-4163CdluayzNqnvy nutritional; endocrine; and metabolic disorders (3 sources)Other disorders of phosphorus metabolism; Translations: [Disorders of phosphorus metabolism]30-40-4094HlgybhgVxsdx nutritional; endocrine; and metabolic disorders (1 source)Morbid (severe) obesity due to excess calories; Translations: [MORBID SEVERE OBES D/T EXCESS SANJAY]Onset: 62-22-1622YxdqfpdXpogb nutritional; endocrine; and metabolic disorders (1 source)Body mass index (BMI) 45.0-49.9, adult; Translations: [BODY MASS INDEX BMI 45.0-49.9 ADULT]Onset: 30-78-2105XdiaamkTaydu nutritional; endocrine; and metabolic disorders (1 source)Body mass index (BMI) 40.0-44.9, adult; Translations: [BODY MASS INDEX BMI 40.0-44.9 ADULT]Onset: 66-84-7368WpgptjzIjhbg nutritional; endocrine; and metabolic disorders (5 sources)Severe obesity; Translations: [Morbid (severe) obesity due to excess calories]Onset: 173294-77-6585CiewwdzYsypt screening for suspected conditions (not mental disorders or infectious disease) (20 sources)Abnormal quantity of physiologic substance; Translations: [Culture positive for methicillin resistant Staphylococcus aureus]Onset: 11-22-2014 50-24-5868TknsqirqDdcbkrk on above:2015- armpit and chin- treated at [facility] [place] armpit and chin- [place] [facility] [place] skin disorders (4 sources)Ingrowing nail; Translations: [Ingrowing nail]91-45-2888QadiwyevWgndl skin disorders (3 sources)Ingrowing nail; Translations: [Ingrowing nail]10-46-4420QnfjumnjClhvm upper respiratory infections (2 sources)Acute upper respiratory infection, unspecified; Translations: [Upper respiratory infection]Onset: 228719-01-0715IavdrngqHemfnb media and related conditions (3 sources)Acute suppurative otitis media without spontaneous rupture of ear drum; Translations: [Acute suppurative otitis media without spontaneous rupture of ear drum, left ear]76-64-8113FxzwbwgfOhuqnenis (1 source)Left hemiparesisChronicPeripheral and visceral atherosclerosis (11 sources)Peripheral vascular disease; Translations: [Peripheral vascular disease, unspecified]14-07-2126CaytxpoGkageoiv codes; unclassified (20 sources)Obstructive sleep apnea syndrome; Translations: [Obstructive sleep apnea (adult) (pediatric)]Onset: 536413-20-9520YvyuljjQzrivvis codes; unclassified (20 sources)Sleep uzdqd26-20-0920XjdofckKdtmjlft codes; unclassified (1 source)Insomnia; Translations: [Other insomnia]ChronicResidual codes; unclassified (1 source)Sleep apnea, unspecified; Translations: [SLEEP APNEA UNSPECIFIED] Onset: 08-56-0845JkigeptTtixrrlm codes; unclassified (12 sources)Noncompliance with medication regimen; Translations: [Patient's other noncompliance with medicationregimen]Onset: 91-18-9366LlviamfqIijgdfer codes; unclassified (1 source)Altered mental statusEpisodicResidual codes; unclassified (6 sources)Pain; Translations: [Pain, unspecified]73-59-5055XgbjooapWhyewmev codes; unclassified (20 sources)Chronic back nbxi78-34-6845LhseqebyYhxgaxyf codes; unclassified (2 sources)Problem situation; Translations: [Other problems related to lifestyle]Onset: 78-65-3307CdygtmoeBfcbnnti codes; unclassified (20 sources)Electronic cigarette qesa64-39-1503DvyeeqifKvizmnev codes; unclassified (1 source)Procedure carried out on subject; Translations: [Encounter for prophylactic measures, unspecified]Onset: 77-31-3746EowcrxleTqzumajm codes; unclassified (1 source)H/O: Disorder; Translations: [Personal history of other specified conditions]Onset: 02-85-5743XjopocgmZkrekhwq codes; unclassified (7 sources)Staring; Translations: [Transient alteration of awareness]09-06-2018 EpisodicResidual codes; unclassified (1 source)Acquired absence of other specified parts of digestive tract; Translations: [ACQ ABSENCE OTH PART DIGESTV TRACT]Onset: 73-66-8879Asveemub Residual codes; unclassified (1 source)Failed encounter; Translations: [No-show for appointment]11-07-2024 EpisodicResidual codes; unclassified (1 source)Pain, unspecified; Translations: [Pain, unspecified]Onset: 12-02-2024 EpisodicRetinal detachments; defects; vascular occlusion; and retinopathy (20 sources)Hemorrhage of left retina; Translations: [Retinal hemorrhage, left eye]Onset: 365090-76-2281CgxqznkRniiqkfujextm and other psychotic disorders (20 sources)Schizophrenia; Translations: [Schizophrenia, unspecified]Onset: 390690-91-8681BijsfyhOlrlighwn and history of mental health and substance abuse codes (1 source)Personal history of nicotine dependence; Translations: [PERSONAL HISTORY OF NICOTINE DEPEND]Onset: 07-45-7451HfjedzbnVzkq and subcutaneous tissue infections (20 sources)Cellulitis of chin ; Translations: [Abscess of chin]Onset: 11-30-2014 Resolved: 596889-23-2867ImybufiqWjravrzefdy; intervertebral disc disorders; other back problems (20 sources)Degeneration of lumbar intervertebral disc; Translations: [Other intervertebral disc degeneration, lumbar region]Onset: 755851-82-0274 ChronicSpondylosis; intervertebral disc disorders; other back problems (20 sources)Sciatica; Translations: [Neck pain]Onset: EpisodicSprains and strains (4 sources)Injury of thigh; Translations: [Strain of muscle, fascia and tendon of the posterior muscle group at thigh level, right thigh, initial encounter] Onset: 049725-67-5741OxsyshxwRnmpagbaw-pixarci disorders (20 sources)Nicotine dependence; Translations: [Smoker]Onset: 04-07-2022 58-89-4603EpjoctlFkmbzjw on above:Added secondary to documentation in Social History.Superficial injury; contusion (5 sources)Contusion of lower back and pelvis, initial encounter; Translations: [Contusion of left knee]Onset: 35-81-7433MmdgjxakTacbfgs (20 sources)Syncope and collapse; Translations: [Syncope]Onset: 12-15-2011 19-55-5565OxcqxfpaRwshoqp disorders (20 sources)Hypothyroidism; Translations: [Hypothyroidism, unspecified]Onset: 754867-88-0265KtnypwjXeyjrmyooumk (3 sources)Suspected infectious disease; Translations: [MRSA (methicillin- resistant Staph aureus) carrier/suspected carrier]Onset: Unclassified (1 source)NICOTINE DEPEND CIGARETTES UNCOMPOnset: 98-63-3653Ybxijaihlavq (1 source)OTH LONGTERM CURRENT DRUG THERAPYOnset: 52-13-4657Kqgzxlyivzhp (1 source)TYPE 2 DM WITHOUT COMPLICATIONSOnset: 99-61-2468Wakctysmzsba (1 source)METER TESTER POLYPHASE CURRENT USE OF INSULINOnset: 42-73-0219Hrvlwlwtgfqq (1 source)METER TESTER POLYPHASE USE ORAL HYPOGLYCEMIC DXOnset: 85-29-9578Xntroafntift (1 source)LONGTERM CURRENT USE OF ASPIRINOnset: 03-99-6664Ambpoyexlvup (20 sources)Patient encounter kwscqe60-99-5934Hrknnasnyrvo (18 sources)Pain of joint of kneeOnset: 940203-16-2518Dyspcjlhycql (1 source)CONTACT W/AND (SUSP) EXPOS COVID-19; Translations: [CONTACT W/AND (SUSP) EXPOS COVID-19]Onset: 62-20-0187Uuppkmfxxwix (4 sources)COUGH, UNSPECIFIED; Translations: [COUGH, UNSPECIFIED]Onset: 49-61-9779Uximojfmfshh (1 source)LOW BACK PAIN, UNSPECIFIED; Translations: [LOW BACK PAIN, UNSPECIFIED] Onset: 19-88-4666Scajroydagsb (1 source)Finding of sensation of gzdvjoz77-65-4148Zqkuklewxkta (2 sources)Chronic pain of both zzmha29-05-1295Cccmqemocbes (1 source)Patient's noncompliance with other medical treatment and regimen due to unspecified reason; Translations: [Patient's noncompliance with other medical treatment and regimen due to unspecified reason]Onset: 23-45-0462Qgmpaogssnwg (1 source)Low back pain, unspecified; Translations: [Low back pain, unspecified] Onset: 90-38-1569Ewhmuarrqsqk (1 source)Sudden vision lossOnset: 01-49-7761Yjlvlhvozmqr (1 source)Other intervertebral disc degeneration, lumbar region without mention of lumbar back pain or lower extremity pain; Translations: [Other intervertebral disc degeneration, lumbar region without mentionof lumbar back pain or lower extremity pain]Onset: 85-86-5031Grcrbciltbzw (1 source)Other intervertebral disc degeneration, lumbar region with discogenic back pain only; Translations:[Other intervertebral disc degeneration, lumbar region with discogenic back pain only]Onset: 50-72-8087Uczhukqeeiey (1 source)Disruption or dehiscence of closure of internal operation (surgical) wound of abdominal wall muscleor fascia, initial encounter; Translations: [Disruption or dehiscence of closure of internal operation (surgical) wound of abdominal wall muscle or fascia, initial encounter]Onset: 38-30-3387Ixwvpihakspj (1 source)Other intervertebral disc degeneration, lumbar region with discogenic back pain and lower extremitypain; Translations: [Other intervertebral disc degeneration, lumbar region with discogenic back pain and lower extremity pain] Onset: 68-08-4356Ydiczag tract infections (20 sources)Acute cystitis with hematuria; Translations: [Urinary tract infectious disease]Onset: 95-69-9546EznzrsugWmpym infection (20 sources)Human papilloma virus -41-0658Ncoznbzb Past or Other Problems Problem ClassificationProblemDateDocumented DateEpisodic/ChronicAbdominal pain (20 sources)Right lower quadrant pain; Translations: [Lower abdominal pain] Onset: 02-04-2008 Resolved: 452475-65-3904GlxipnwpBrams and unspecified renal failure (20 sources)Acute kidney failure, unspecified; Translations: [Acute injury of kidney]Onset: 12-03-2014 Resolved: 485103-30-5808CyrdsdwwSbtsywmqe infection; unspecified site (20 sources)Other bacterial infections of unspecified site; Translations: [History of methicillin resistant Staphylococcus aureus infection]Onset: 11-30-2014 Resolved: 913564-92-7599KzzuqzroMboxrpk dysrhythmias (20 sources)Palpitations; Translations: [Bradycardia]Onset: EpisodicComplications of surgical procedures or medical care (20 sources)Wound dehiscence; Translations: [Abdominal wound dehiscence, initial encounter]Onset: 03-22-2024 Resolved: 837503-96-0114VfpclbkxBlygjwrhre associated with dizziness or vertigo (20 sources)Dizziness; Translations: [Dizziness and giddiness]Onset: 01-01-2022 19-04-0726PkzacbgzFecbcvhr mellitus without complication (20 sources)Hyperglycemia, unspecified; Translations: [Insulin pump present] Onset: 96-20-6395LvnmmvofPutks and electrolyte disorders (20 sources)Metabolic acidosis, normal anion gap (NAG); Translations: [Hypokalemia]Onset: 12-03-2014 Resolved: 622975-57-8496ClrwnqfcMafctfzp; including migraine (20 sources)Headache; Translations: [Headache]Onset: EpisodicImmunizations and screening for infectious disease (20 sources)Contact with and (suspected) exposure to other viral communicable diseases; Translations: [Carrier or suspected carrier of Methicillin resistant Staphylococcus aureus]Onset: 12-01-2014 Resolved: 72-74-0581BtwghbirNfsubulchd infection (1 source)Viral intestinal infection, unspecified; Translations: [VIRAL INTESTINAL INFECTION UNSPEC]Onset: 38-40-2790HrcsuggqHfhoaeb examination/evaluation (1 source)Encounter for preprocedural cardiovascular examination; Translations: [Encounter for preprocedural cardiovascular examination]Onset: 07-17-2017 EpisodicMood disorders (20 sources)Mood disordersOnset: 03-29-2024 Resolved: 453457-34-3946Nyjgtlp (20 sources)Candidiasis; Translations: [Candidiasis, unspecified]Onset: 757952-51-4619VdpcrztwPmiond and vomiting (12 sources)Nausea; Translations: [Nausea]Onset: 02-04-2008 Resolved: 105232-65-7247VhueebvoLsihkkzpdef chest pain (20 sources)Chest pain, unspecified; Translations: [Other chest pain]Onset: 02-16-2017 Resolved: 51-06-5690FlavqzbhGhhxibfwizx deficiencies (20 sources)Cobalamin deficiency; Translations: [Deficiency of other specified B group vitamins]Onset: 838494-02-2749BewufdshYttsf aftercare (7 sources)shelter (current) use of insulin; Translations: [METER TESTER POLYPHASE CURRENT USE OF INSULIN]Onset: 11-85-0706XhfxbsohYapja aftercare (3 sources)Other vermin exterminator (current) drug therapy; Translations: [OTH LONGTERM CURRENT DRUG THERAPY]Onset: 62-49-3188RqcyqfihTgdbz aftercare (1 source)exterminator helper termite (current) use of 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/antiplatelets; Translations: [LONGTERM ANTITHROMBOT/ANTIPLATLETS]Onset: 28-45-2293Trfneumy Other aftercare (20 sources)Long-term current use of drug therapy; Translations: [Encounter for therapeutic drug level monitoring]Onset: 05-13-2024 Resolved: 765879-63-3493UpdzrphiYxmfb aftercare (2 sources)Encounter for therapeutic drug level monitoring; Translations: [Encounter for therapeutic drug level monitoring]Onset: 32-31-4910RmezmrvzGycqs aftercare (2 sources)shelter (current) use of opiate analgesic; Translations: [exterminator helper termite (current) use of opiate analgesic]Onset: 16-48-6157DzbnuymuCyrwx circulatory disease (1 source)Personal history of other diseases of the circulatory system; Translations: [Personal history of other diseases of the circulatory system] Onset: 14-06-8568WexbesooKskco circulatory disease (20 sources)History of cerebrovascular accident; Translations: [Personal history of transient ischemic attack (TIA), and cerebral infarction without residual deficits]Onset: 961835-28-6410DvkclgbhYdxfs connective tissue disease (20 sources)Fibromyalgia; Translations: [Fibromyalgia]Onset: 09-09-2021 74-70-5947HgbocyfjTwehh connective tissue disease (5 sources)Pain in toe; Translations: [Pain in left toe(s)]Onset: 01-09-2024 03-79-4430DaammhkgZgjva connective tissue disease (1 source)Myalgia, unspecified site; Translations: [MYALGIA UNSPECIFIED SITE] Onset: 98-83-2441TybscbfmHaunm connective tissue disease (20 sources)Spasm; Translations: [Other muscle spasm]Onset: EpisodicOther connective tissue disease (20 sources)Myofascial pain syndrome; Translations: [Myalgia, other site]Onset: 428154-00-1270QicrhlajMnmyc connective tissue disease (2 sources)Other specified soft tissue disorders; Translations: [Other specified soft tissue disorders]Onset: 54-68-0480LdbcnlynLzufd connective tissue disease (2 sources)Other symptoms and signs involving the musculoskeletal system; Translations: [Other musculoskeletalsymptoms referable to limbs]Onset: 733934-25-3445MfxcquyhJgfyi ear and sense organ disorders (3 sources)Otalgia, left ear; Translations: [Otalgia, unspecified]Onset: 02-23-2009 Resolved: 009008-18-2789YssgbwxoPcntw female genital disorders (3 sources)Polyp of corpus uteri; Translations: [Polyp of corpus uteri]Onset: 909291-42-3576NwebppcuCudxf gastrointestinal disorders (6 sources)Diarrhea, unspecified; Translations: [DIARRHEA UNSPECIFIED]Onset: 87-82-1460CfuvxgoaMyony gastrointestinal disorders (20 sources)Incontinence of feces; Translations: [Full incontinence of feces] Onset: 356818-41-1580LynwwunpAgflp injuries and conditions due to external causes (2 sources)Systemic inflammatory response syndrome (SIRS) of non-infectious origin without acute organ dysfunction; Translations: [Systemic inflammatory response syndrome (sirs) of non-infectious origin withoutacute organ dysfunction]Onset: 19-60-2818JpyftzuiKuqln lower respiratory disease (3 sources)Finding of respiration; Translations: [Other forms of dyspnea]Onset: 03-17-2008 Resolved: 690186-41-4002FjdhsqwjTmwec nervous system disorders (3 sources)Anesthesia of skin; Translations: [ANESTHESIA OF SKIN]Onset: 98-60-1258RwxggxhyYyfck non-traumatic joint disorders (3 sources)Arthralgia of the ankle and/or foot; Translations: [Pain in unspecified ankle and joints of unspecified foot]Onset: 03-17-2008 Resolved: 201164-57-8287GpvhqbiyPdfuz non-traumatic joint disorders (4 sources)Pain in left knee; Translations: [Pain in left knee]Onset: 03-22-2024 EpisodicOther nutritional; endocrine; and metabolic disorders (1 source)Personal history of other endocrine, nutritional and metabolic disease; Translations: [Personal history of other endocrine, nutritional and metabolic disease]Onset: 04-12-4760IjgdpiixFuciq nutritional; endocrine; and metabolic disorders (20 sources)Weight gain; Translations: [Abnormal weight gain]Onset: 05-17-2023 Resolved: 936980-10-6169GgzqoibyKifjt nutritional; endocrine; and metabolic disorders (20 sources)Weight increased; Translations: [Abnormal weight gain]Onset: 05-17-2023 Resolved: 288366-80-6762WszmngqxPguae skin disorders (20 sources)Disorder of skin pigmentation; Translations: [Disorder of pigmentation, unspecified]Onset: 206302-09-6777VwucpqohKyqhjavz codes; unclassified (20 sources)Insomnia; Translations: [Insomnia, unspecified]Onset: 05-06-2023 08-50-5892IbklpbhaYehnuhwl codes; unclassified (1 source)Procedure and treatment not carried out because of patient's decision for other reasons; Translations: [PROC AND TX NOT CARRIED OUT PT OTH RSN]Onset: 08-44-9893FzsbdllqZonwpsaq codes; unclassified (1 source)Acquired absence of both cervix and uterus; Translations: [ACQUIRED ABSENCE BOTH CERVIX AND UTERUS]Onset: 45-08-4129EskivwamKhrytoah codes; unclassified (1 source)Patient's noncompliance with other medical treatment and regimen; Translations: [PT NONCOMPLIANCE OTH MED TX AND REGIMEN]Onset: 42-67-6257Ahjnrryr Residual codes; unclassified (3 sources)Sleep disorder; Translations: [Sleep disorder, unspecified]Onset: 502011-50-7124ZnxagvktIshzqxza codes; unclassified (3 sources)Noncompliance with treatment; Translations: [Noncompliance]Onset: 112085-47-2289CorxsnrsYrvqhpbc codes; unclassified (20 sources)Family history of disorder of lung; Translations: [Family history of other diseases of the respiratory system]Onset: 469222-86-4989Tieadcmc Residual codes; unclassified (20 sources)Family history of dementia; Translations: [Family history of other mental and behavioral disorders]Onset: 392588-20-1162KvdlnitrGtxlppkalb (20 sources)Sepsis; Translations: [Bacteremia caused by Gram-positive bacteria] Onset: 12-03-2014 Resolved: 921728-93-6997SfuwyzynXojjacxsrevq (1 source)Family history of ischemic heart disease and other diseases of the circulatory system; Translations: [Family history of ischemic heart disease and other diseases of the circulatory system]Onset: 31-01-9687UzjgxpcsSbouyaztstxr (20 sources)Bipolar (qualifier value)99-72-8846Jwhihylnsaor (1 source)COUGH, UNSPECIFIED; Translations: [COUGH, UNSPECIFIED]Onset: 06-95-2195Xlitgdolpiyv (1 source)Onset: 427250-86-4177Ltijyfqfzupe (1 source)Patient's noncompliance with other medical treatment and regimen due to unspecified reason; Translations: [Patient's noncompliance with other medical treatment and regimen due to unspecified reason]Onset: 83-02-3539Rmfcdniulsat (1 source)Low back pain, unspecified; Translations: [Low back pain, unspecified] Onset: 49-27-7962Qcqsxaqqbcpk (1 source)Other intervertebral disc degeneration, lumbar region without mention of lumbar back pain or lower extremity pain; Translations: [Other intervertebral disc degeneration, lumbar region without mentionof lumbar back pain or lower extremity pain]Onset: 23-80-7423Yreztcmscxtt (1 source)Other intervertebral disc degeneration, lumbar region with discogenic back pain only; Translations:[Other intervertebral disc degeneration, lumbar region with discogenic back pain only]Onset: 84-49-1452Dtmmeisdqmey (1 source)Disruption or dehiscence of closure of internal operation (surgical) wound of abdominal wall muscleor fascia, initial encounter; Translations: [Disruption or dehiscence of closure of internal operation (surgical) wound of abdominal wall muscle or fascia, initial encounter]Onset: 35-25-7959Nvgznhdidyvl (1 source)Other intervertebral disc degeneration, lumbar region with discogenic back pain and lower extremitypain; Translations: [Other intervertebral disc degeneration, lumbar region with discogenic back pain and lower extremity pain] Onset: 95-25-1291Qjjiy infection (1 source)COVID-19Onset: 06-14-2021 Resolved: 06-14-2021 Results Test NameValueInterpretationReference RangeFacilityGent Peakon 46-53-7365Ghkn Pk 4.4 microgram/mLAbnormal5.0-10.0[facility] HospitalComment on above: Result Comment: Critical Result Verified by Repeat Analysis Critical Result S_GEN_P:4.4 Called to and read back by: TONIA SIMENTAL at: 02/03/2025 12:24:23 by:MARIA Merformed By: #### [id number] #### [facility] [address] [place], [place] [address]Ufml Troughon 23-65-1994Hhmu Tr3.0 microgram/mLAbnormal0.5-1.9 Mary[facility] HospitalComment on above:Result Comment: Critical Result Verified by Repeat Analysis Critical Result S_GEN_T:3.0 Called to and read back by: TONIA SIMENTAL at: 02/03/2025 12:23:11 by:MARIA Merformed By: #### [id number] #### [facility] [address] [place], [place] [address]Tabt Tr Dose TmNo info givenInvalid Interpretation [facility] HospitalComment on above:Performed By: #### [id number] #### [facility] [address] [place], [place] [address]Czm Miscellaneous-LCon 01-36-2656Sed Miscellaneousclerical errorInvalid Interpretation [facility] HospitalComment on above: Order Comment: Clerical error. Cannot be cancelled [id number] 02/03/2025 10:29:36 EDTPerformed By: #### [id number] #### [facility] [address] [place] [address]Qrri [id number] Interpretation [facility] HospitalComment on above:Order Comment: Clerical error. Cannot be cancelled [id number] 02/03/2025 10:29:36 EDTPerformed By: #### [id number] #### [facility] [address] [place] [address]Ccio NamegentamicinInvalid Interpretation [facility] HospitalComment on above:Order Comment: Clerical error. Cannot be cancelled [id number] 02/03/2025 10:29:36 EDTPerformed By: #### [id number] #### [facility] [address] [place] [address]Dtrvbhx (Bld) [Mass/Vol]on 71-45-4183Ddhgxpc Blood, RNL833 mg/dLCritical access hospitalHbA1c (Bld) [Mass fraction]Ordered By: Shy Hurd on 24-49-0485ZCQOCenterPointe HospitalLaboratory - Hematology and Cell counts Ordered By: Shy Hurd on 46-11-5718VcG2z (Bld) [Mass fraction]8.4 %[facility] HospitalLab Miscellaneous-LCon 30-87-4670Xci MiscellaneousCOMMENTInvalid Interpretation [facility] HospitalComment on above:Result Comment: Test Ordered: [id number] Clonazepam, Ur as Metabolite 7-Aminoclonazepam Negative ng/ml MX This test was developed and its performance characteristics determined by [facility]. It has not been cleared or approved by the Food and Drug Administration. Performed at: [address] [id number] Romariojose danielkayy WaltondestineyPerformed By: #### [id number] #### [facility] [address] [place], [place] [address]Mgx Miscellaneous-LCon 01-63-5941Hact [id number] Interpretation [facility] HospitalComment on above:Performed By: #### [id number] #### [facility] [address] [place], [place] [address]Wjzu NameClonazepamInvalid Interpretation [facility] HospitalComment on above:Performed By: #### [id number] #### [facility] [address], [place] [address]H Drug Screenon 01-09-2025U Amph ScrNegativeNormalNEGATIVE [facility] HospitalComment on above:Result Comment: Negative Cutoff: <1000 ng/mLPerformed By: #### [id number] #### [facility] [address] [place], [place] [address]M Julianna ScrNegativeNormalNEGGreen Cross Hospital Comment on above:Result Comment: Negative Cutoff: <200 ng/mLPerformed By: #### [id number] #### [facility] [address] [place], [place] [address]X Benzodia ScrNegativeNormalNEGGreen Cross Hospital Comment on above:Result Comment: Negative Cutoff: <200 ng/mLPerformed By: #### [id number] #### [facility] [address] [place], [place] [address]B Cannab ScrNegativeNormalNEGGreen Cross Hospital Comment on above:Result Comment: Negative Cutoff: <50 ng/mLPerformed By: #### [id number] #### [facility] [address] [place], [place] [address]S Cocaine ScrNegativeNormalNEGATIVEMarymount Hospital Comment on above:Result Comment: Negative Cutoff: <300 ng/mLPerformed By: #### [id number] #### [facility] [address] [place], [place] [address]S FentanylNegativeNormalNEGGreen Cross Hospital Comment on above:Result Comment: Negative Cutoff: <5 ng/mL These drug screen results are to be used for medical (i.e., treatment) purposes only. Unconfirmed drug screening results must not be used for non-medical purposes (e.g., employment testing, legal testing).Performed By: #### [id number] #### [facility] [address] [place], [place] [address]I Opiate ScrPositiveAbnormalNEGGreen Cross Hospital Comment on above:Result Comment: If confirmation is required, please notify the lab within 72 hours Result verified by repeat analysis, Unconfirmed by alternate method Negative Cutoff: <300 ng/mLPerformed By: #### [id number] #### [facility] [address] [place], [place] [address]L PCP ScrNegativeNormalNEGGreen Cross Hospital Comment on above:Result Comment: Negative Cutoff: <25 ng/mL These drug screen results are to be used for medical (i.e., treatment) purposes only. Unconfirmed drug screening results must not be used for non-medical purposes (e.g., employment testing, legal testing).Performed By: #### [id number] #### [facility] [address], [place] [address]Qewqd Cultureon 17-77-7793Fbcqoolr identified Cx Nom (U)<9,000 colonies/ml mixed bacterial skin contaminants 2 Days PERFORMED BY: [place] [address] PATHOLOGIST BLASTING HELPER HARESH BANERJEE M.D.[facility] Physician GroupComment on above: Performed By: #### CUU #### [place] [address] USAUrine cultureOrdered By: Ben Horn on 12-28-2024 Bacteria identified Cx Nom (U)2 DaysProtestant Deaconess HospitalBASIC METABOLIC PANELon 36-31-6437Gbqbx gap [Moles/Vol]6 mmol/LNormal5-15[facility] HospitalComment on above:Performed By: #### BEDG #### [facility] ([facility]) [address] [place] [address] VIRCalcium [Mass/Vol]8.4 mg/dLLow8.5-10.5PMcCullough-Hyde Memorial Hospital HospitalComment on above:Performed By: #### BEDG #### [facility] ([facility]) [address] [place] [address] VIRChloride [Moles/Vol]111 mmol/DDwcz22-304CvyIrwqkj [place] HospitalComment on above:Performed By: #### BEDG #### [facility] ([facility]) [address] [place] [address] VIRCO2 [Moles/Vol]22 mmol/CJwmesq88-76MlqJdkwsqLake County [facility] Comment on above:Performed By: #### BEDG #### [facility] ([facility]) [address] [place] [address] VIRCreatinine [Mass/Vol]0.95 mg/dLNormal0.40-1.00ProMarietta Osteopathic ClinicComment on above:Result Comment: METHOD TRACEABLE TO IDMS STANDARDPerformed By: #### BEDG #### [facility] ([facility]) [address] [place] [address] VIRGFR/1.73 sq M.predicted among non-blacks MDRD (S/P/Bld) [Vol rate/Area]74 mL/min/{1.73_m2}Normal>=60ProMarietta Osteopathic ClinicComment on above:Result Comment: Reported eGFR is based on the CKD-EPI 2020 equation that does not use a race coefficient.Performed By: #### BEDG #### [facility] ([facility]) [address] [place] [address] VIRGlucose [Mass/Vol]225 mg/qBWpwg88-55KbsBocpyh [place] HospitalComment on above:Performed By: #### BEDG #### [facility] ([facility]) [address] [place] [address] VIRPotassium [Moles/Vol]4.6 mmol/LNormal3.5-5.0ProOhio Valley Surgical Hospital HospitalComment on above:Performed By: #### BEDG #### [facility] ([facility]) [address] [place] [address] VIRSodium [Moles/Vol]139 mmol/SSfdvnr991-613ObuFthnxn [place] HospitalComment on above:Performed By: #### BEDG #### [facility] ([facility]) [address] [place] [address] VIRUrea nitrogen [Mass/Vol]17 mg/dLNormal5-23ProOhio Valley Surgical Hospital HospitalComment on above:Performed By: #### BEDG #### [facility] ([facility]) [address] [place] [address] VIRBEDSIDE GLUCOSEon 81-85-2396Llodqoa [Mass/Vol]244 mg/dLHigh 65-99ProOhio Valley Surgical Hospital HospitalComment on above:Performed By: #### BEDG #### [facility] ([facility]) [address] [place] [address] VIRGlucose [Mass/Vol]265 mg/fEVjrg18-14RkjRybgsg [place] HospitalComment on above:Performed By: #### BEDG #### [facility] ([facility]) [address] [place] [address] VIRBasic Metabolic Panelon 66-63-9485Glzbo gap [Moles/Vol]6 mmol/L5 - 15 mmol/LProMedica Health SystemCalcium [Mass/Vol]8.4 mg/dLLow8.5 - 10.5 mg/dLProMedica Health SystemChloride [Moles/Vol]111 mmol/LHigh98 - 109 mmol/LProMedica Health SystemCO2 [Moles/Vol]22 mmol/L22 - 32 mmol/LPrTogus VA Medical CenterCreatinine [Mass/Vol]0.95 mg/dL0.40 - 1.00 mg/dLLake County Memorial Hospital - WestComment on above:METHOD TRACEABLE TO IDMS STANDARDEGFR Non-Race Dependent 74- PINFPMercy Health Allen HospitalComment on above:Reported eGFR is based on the CKD-EPI 2020 equation that does not use a race coefficient. Glucose [Mass/Vol]225 mg/fDEwcg91 - 99 mg/dLLake County Memorial Hospital - West Interpretation and review of laboratory resultsAbDannemora State Hospital for the Criminally Insane Potassium [Moles/Vol]4.6 mmol/L3.5 - 5.0 mmol/[facility] SystemSodium [Moles/Vol]139 mmol/L134 - 146 mmol/[facility] Municipal HospitalUrea nitrogen [Mass/Vol]17 mg/dL5 - 23 mg/dLGrand View Health Bedside Glucose *Place/Obtain serum glucose if >500 per glucometer.on 12-05-2024 Glucose [Mass/Vol]244 mg/mRWuid56 - 99 mg/dLLake County Memorial Hospital [facility] Interpretation and review of laboratory resultsAbAdventHealth DurandGlucose [Mass/Vol]265 mg/dSCspz20 - 99 mg/dLLake County Memorial Hospital - WestInterpretation and review of laboratory resultsAbChan Soon-Shiong Medical Center at WindberBASIC METABOLIC PANELon 57-90-2344Wiamg gap [Moles/Vol]8 mmol/LNormal5-15St. [facility] HospitalComment on above:Performed By: #### BEDG #### [facility] ([facility]) [address] [place] [address] VIRCalcium [Mass/Vol]7.6 mg/dLLow8.5-10.5PLake County Memorial Hospital - WestComment on above:Performed By: #### BEDG #### [facility] ([facility]) [address] [place] [address] VIRChloride [Moles/Vol]111 mmol/GByht21-904HojOgftxtSt. Elizabeth HospitalComment on above:Performed By: #### BEDG #### [facility] ([facility]) [address] [place] [address] VIRCO2 [Moles/Vol]20 mmol/FZhc88-88CwmDgapuqKindred Hospital Dayton Comment on above:Performed By: #### BEDG #### [facility] ([facility]) [address] [place] [address] VIRCreatinine [Mass/Vol]0.89 mg/dLNormal0.40-1.00ProOhio Valley Surgical Hospital HospitalComment on above:Result Comment: METHOD TRACEABLE TO IDMS STANDARDPerformed By: #### BEDG #### [facility] ([facility]) [address] [place] [address] VIRGFR/1.73 sq M.predicted among non-blacks MDRD (S/P/Bld) [Vol rate/Area]80 mL/min/{1.73_m2}Normal>=60ProMarietta Osteopathic ClinicComment on above:Result Comment: Reported eGFR is based on the CKD-EPI 2020 equation that does not use a race coefficient.Performed By: #### BEDG #### [facility] ([facility]) [address] [place] [address] VIRGlucose [Mass/Vol]253 mg/oDWegi98-03DujMthubkMarietta Osteopathic ClinicComment on above:Performed By: #### BEDG #### [facility] ([facility]) [address] [place] [address] VIRPotassium [Moles/Vol]4.3 mmol/LNormal3.5-5.0ProOhio Valley Surgical Hospital HospitalComment on above:Performed By: #### BEDG #### [facility] ([facility]) [address] [place] [address] VIRSodium [Moles/Vol]139 mmol/INfyfqq068-995LwaYnkyyv [place] HospitalComment on above:Performed By: #### BEDG #### [facility] ([facility]) [address] [place] [address] VIRUrea nitrogen [Mass/Vol]15 mg/dLNormal5-23ProOhio Valley Surgical Hospital HospitalComment on above:Performed By: #### BEDG #### [facility] ([facility]) [address] [place] [address] VIRBEDSIDE GLUCOSEon 24-99-5804Alnvtbr [Mass/Vol]348 mg/dLHigh 65-99ProOhio Valley Surgical Hospital HospitalComment on above:Performed By: #### BEDG #### [facility] ([facility]) [address] [place] [address] VIRGlucose [Mass/Vol]200 mg/fVVyty03-42CzjDdzlqt [place] HospitalComment on above:Performed By: #### BEDG #### [facility] ([facility]) [address] [place] [address] VIRGlucose [Mass/Vol]348 mg/pFPfir65-15ExpCcuwtm [place] HospitalComment on above:Performed By: #### BEDG #### [facility] ([facility]) [address] [place] [address] VIRGlucose [Mass/Vol]251 mg/pBSrrv02-57MvcXzmrbj [place] HospitalComment on above:Performed By: #### BEDG #### [facility] ([facility]) [address] [place] [address] VIRGlucose [Mass/Vol]262 mg/bZBppe98-58ShvDbexnp [place] HospitalComment on above:Performed By: #### BEDG #### [facility] ([facility]) [address] [place] [address] VIRBasic Metabolic Panelon 44-44-5457Zqqgs gap [Moles/Vol]8 mmol/L5 - 15 mmol/LProMedica Health SystemCalcium [Mass/Vol]7.6 mg/dLLow8.5 - 10.5 mg/dLProMedica Health SystemChloride [Moles/Vol]111 mmol/LHigh98 - 109 mmol/LProMedica Health SystemCO2 [Moles/Vol]20 mmol/LLow22 - 32 mmol/[facility] SystemCreatinine [Mass/Vol]0.89 mg/dL0.40 - 1.00 mg/dLLake County Memorial Hospital - WestComment on above:METHOD TRACEABLE TO IDMS STANDARDEGFR Non-Race Dependent 80- [facility] Medical CenterComment on above:Reported eGFR is based on the CKD-EPI 2020 equation that does not use a race coefficient. Glucose [Mass/Vol]253 mg/hGVtav48 - 99 mg/dLLake County Memorial Hospital [facility] Interpretation and review of laboratory resultsAbDannemora State Hospital for the Criminally Insane Potassium [Moles/Vol]4.3 mmol/L3.5 - 5.0 mmol/[facility] SystemSodium [Moles/Vol]139 mmol/L134 - 146 mmol/[facility] SystemUrea nitrogen [Mass/Vol]15 mg/dL5 - 23 mg/dLGrand View Health Bedside Glucose *Place/Obtain serum glucose if >500 per glucometer.on 12-04-2024 Glucose [Mass/Vol]348 mg/lQJelk04 - 99 mg/dLLake County Memorial [facility] Interpretation and review of laboratory resultsAbAdventHealth DurandGlucose [Mass/Vol]200 mg/oEYkby34 - 99 mg/dLLake County [facility] Hospital - WestInterpretation and review of laboratory resultsAbnoSelect Specialty Hospital - HarrisburgGlucose [Mass/Vol]348 mg/iPNenj27 - 99 mg/dL [facility] WestInterpretation and review of laboratory resultsAbnormal [facility] View HealthGlucose [Mass/Vol]251 mg/jZIqup26 - 99 mg/dLLake County Memorial Hospital - WestInterpretation and review of laboratory results AbnormalGrand View HealthGlucose [Mass/Vol]257 mg/vVWuac92 - 99 mg/dLLake County Memorial Hospital - WestInterpretation and review of laboratory resultsAbnoSelect Specialty Hospital - HarrisburgGlucose [Mass/Vol]262 mg/mYHlxp17 - 99 mg/dLLake County Memorial Hospital - WestInterpretation and review of laboratory resultsAbChan Soon-Shiong Medical Center at WindberCBC WITH AUTO DIFFERENTIALon 54-68-3222JOAAZZKJY ABSOLUTE COUNT (10*3/UL) BY AUTOMATED COUNT0.1 10*3/uLNormal0.0-0.2Pro[facility]ica [facility] HospitalComment on above:Performed By: #### BEDG #### [facility] ([facility]) [address] [place] [address] VIRBASOPHILS RELATIVE PERCENT BY AUTOMATED COUNT1.1 %Normal [facility] HospitalComment on above:Performed By: #### BEDG #### [facility] ([facility]) [address] [place] [address] VIRCELLAVISION DIFFERENTIAL TYPEAUTOMATED DIFFERENTIALNormal [facility] HospitalComment on above:Performed By: #### BEDG #### [facility] ([facility]) [address] [place] [address] VIREosinophils (Bld) [#/Vol]0.2 10*3/uLNormal0.0-0.4ProOhiohealth Mansfield Hospitalca Saint Louis HospitalComment on above:Performed By: #### BEDG #### [facility] ([facility]) [address] [place] [address] VIREOSINOPHILS RELATIVE PERCENT BY AUTOMATED COUNT3.0 %Normal [facility] HospitalComment on above:Performed By: #### BEDG #### [facility] ([facility]) [address] [place] [address] VIRErythrocyte distribution width (RBC) [Ratio]13.5 %Normal 11.5-15ProOhio Valley Surgical Hospital HospitalComment on above:Performed By: #### BEDG #### [facility] ([facility]) [address] [place] [address] VIRHematocrit (Bld) [Volume fraction]32.7 %Xxb97-90GpoJiaxun [place] HospitalComment on above:Performed By: #### BEDG #### [facility] ([facility]) [address] [place] [address] VIRHemoglobin (Bld) [Mass/Vol]11.2 g/dLLow11.7-15.5PMcCullough-Hyde Memorial Hospital HospitalComment on above:Performed By: #### BEDG #### [facility] ([facility]) [address] [place] [address] VIRLYMPHOCYTES ABSOLUTE COUNT (10*3/UL) BY AUTOMATED COUNT2.0 10*3/uLNormal1.0-3.5PMcCullough-Hyde Memorial Hospital HospitalComment on above:Performed By: #### BEDG #### [facility] ([facility]) [address] [place] [address] VIRLYMPHOCYTES RELATIVE PERCENT BY AUTOMATED COUNT38.3 %Normal ProMThe Christ Hospital HospitalComment on above:Performed By: #### BEDG #### [facility] ([facility]) [address] [place] [address] VIRMCH (RBC) [Entitic mass]30.4 teOsagpb82-96ZufOyoifg [place] HospitalComment on above:Performed By: #### BEDG #### [facility] ([facility]) [address] [facility] [place] [address] VIRMCHC (RBC) [Mass/Vol]34.1 g/eFDhklek36-59DdiZybvti [place] HospitalComment on above:Performed By: #### BEDG #### [facility] ([facility]) [address] [place] [address] VIRMCV (RBC) [Entitic vol]89 zVNswdfp74-808UmnHdjkkv [place] HospitalComment on above:Performed By: #### BEDG #### [facility] ([facility]) [address] [place] [address] VIRMONOCYTES ABSOLUTE COUNT (10*3/UL) BY AUTOMATED COUNT0.3 10*3/uLNormal0.0-0.9ProOhiohealth Mansfield Hospitalca [facility] [place] HospitalComment on above:Performed By: #### BEDG #### [facility] ([facility]) [address] [place] [address] VIRMONOCYTES RELATIVE PERCENT BY AUTOMATED COUNT4.8 %Normal [facility] HospitalComment on above:Performed By: #### BEDG #### [facility] ([facility]) [address] [facility] [place] [address] VIRNEUTROPHILS ABSOLUTE COUNT BY AUTOMATED COUNT2.8 10*3/uL Normal1.5-6.6ProOhiohealth Mansfield Hospitalca [facility] [place] HospitalComment on above:Performed By: #### BEDG #### [facility] ([facility]) [address] [place] [address] VIRNEUTROPHILS RELATIVE PERCENT BY AUTOMATED COUNT52.8 %Normal [facility] HospitalComment on above:Performed By: #### BEDG #### [facility] ([facility]) [address] [place] [address] VIRPlatelet mean volume (Bld) [Entitic vol]7.5 fLNormal7-12 [facility] HospitalComment on above:Performed By: #### BEDG #### [facility] ([facility]) [address] [place] [address] VIRPlatelets (Bld) [#/Vol]235 10*3/hDFzfwel731-856VxdInmnez [place] HospitalComment on above:Performed By: #### BEDG #### [facility] ([facility]) [address] [place] [address] VIRRBC COUNT3.67 X10E12/LLow3.8-5.2POverton Brooks VA Medical Centerica [facility] Comment on above:Performed By: #### BEDG #### [facility] ([facility]) [address] [facility] [place] [address] VIRWBC (Bld) [#/Vol]5.3 10*3/uLNormal4-11ProOhiohealth Mansfield Hospitalca [facility] HospitalComment on above:Performed By: #### BEDG #### [facility] ([facility]) [address] [place] [address] VIRCBC auto differentialon 77-07-9888Cplnjxvwt (Bld) [#/Vol]0.1 10*3/uL0.0 - 0.2 10*3/uLLake County Memorial Hospital - WestBasophils/100 WBC (Bld)1.1 % [facility] - WestDifferential cell count method Nom (Bld)AUTOMATED DIFFERENTIALLake County Memorial Hospital - WestEosinophils (Bld) [#/Vol]0.2 10*3/uL0.0 - 0.4 10*3/uLLake County Memorial Hospital - WestEosinophils/100 WBC (Bld)3 %[facility] - WestErythrocyte distribution width (RBC) [Ratio]13.5 %11.5 - 15 %[facility] - WestHematocrit (Bld) [Volume fraction]32.7 %Low35 - 47 %[facility] - WestHemoglobin (Bld) [Mass/Vol]11.2 g/dLLow11.7 - 15.5 g/dLLake County Memorial Hospital - WestInterpretation and review of laboratory resultsAbnormalLake County Memorial Hospital - WestLymphocytes (Bld) [#/Vol]2 10*3/uL1.0 - 3.5 10*3/uLLake County Memorial Hospital - WestLymphocytes/100 WBC (Bld)38.3 %[facility] - WestMCH (RBC) [Entitic mass]30.4 pg27 - 34 [facility] Cross HospitalMCHC (RBC) [Mass/Vol]34.1 g/dL32 - 36 g/dLLake County Memorial Hospital - WestMCV (RBC) [Entitic vol]89 fL80 - 100 [facility] CenterMonocytes (Bld) [#/Vol]0.3 10*3/uL0.0 - 0.9 10*3/uLLake County Memorial Hospital - WestMonocytes/100 WBC (Bld)4.8 %[facility] - WestNeutrophils (Bld) [#/Vol]2.8 10*3/uL1.5 - 6.6 10*3/uLLake County Memorial Hospital - WestNeutrophils/100 WBC (Bld)52.8 %[facility] - WestPlatelet mean volume (Bld) [Entitic vol]7.5 fL 7 - 12 [facility] Medical CenterPlatelets (Bld) [#/Vol]235 10*3/uLProFort Hamilton Hospital SystemRBC (Bld) [#/Vol]3.67 10*6/LowLake County Memorial Hospital - WestWBC LM Ql (Sput)5.3PBryn Mawr Rehabilitation HospitalElectrolyte panelon 35-72-7789Kpbak gap [Moles/Vol]6 mmol/L5 - 15 mmol/LPrEast Morgan County [facility] Chloride [Moles/Vol]110 mmol/LHigh98 - 109 mmol/LProMedencompass health rehabilitation hospital of gadsden Health SystemCO2 [Moles/Vol]20 mmol/LLow22 - 32 mmol/LProMedencompass health rehabilitation hospital of gadsden Health SystemInterpretation and review of laboratory resultsAbnoPerson Memorial HospitalPotassium [Moles/Vol] 4.4 mmol/L3.5 - 5.0 mmol/LProMedencompass health rehabilitation hospital of gadsden Health SystemSodium [Moles/Vol]136 mmol/L134 - 146 mmol/LPrMidwest Orthopedic Specialty Hospital SystemAPTTon 33-74-9286qFHS Coag (PPP) [Time]25 sLowLake County Memorial Hospital - WestInterpretation and review of laboratory resultsAbnoSelect Specialty Hospital - HarrisburgaPTT Coag (Bld) [Time]25 uLlb79-33LihWtjcvp [place] HospitalComment on above:Performed By: #### CMP #### [facility] ([facility]) [address] [place] [address] VIRBEDSIDE GLUCOSEon 89-17-8376Edzwbsn [Mass/Vol]257 mg/dLHigh 65-99ProOhio Valley Surgical Hospital HospitalComment on above:Performed By: #### BEDG #### [facility] ([facility]) [address] [place] [address] VIRGlucose [Mass/Vol]238 mg/nEUnyf91-90KobGkzzlu [place] HospitalComment on above:Performed By: #### BEDG #### [facility] ([facility]) [address] [place] [address] VIRGlucose [Mass/Vol]114 mg/nQJtbn91-90BxlJpgxii [place] HospitalComment on above:Performed By: #### BEDG #### [facility] ([facility]) [address] [facility] [address] VIRGlucose [Mass/Vol]237 mg/yMFopg56-32UepIrdsfn Carias HospitalComment on above:Performed By: #### CMP #### [facility] ([facility]) [address] [place] [address] VIRGlucose [Mass/Vol]269 mg/cAKltd36-76RpvOtypqh [facility]arias HospitalComment on above:Performed By: #### CMP #### [facility] ([facility]) [address] [place] [address] VIRGlucose [Mass/Vol]281 mg/oPEixf28-88DemJxufco Carias HospitalComment on above:Performed By: #### CMP #### [facility] ([facility]) [address] [place] [address] VIRGlucose [Mass/Vol]301 mg/sZJxhw60-17KmjBpelkd Carias HospitalComment on above:Performed By: #### CMP #### [facility] ([facility]) [address] [place] [address] VIRGlucose [Mass/Vol]287 mg/mWZbfi09-77HvgBsfhsy Carias HospitalComment on above:Performed By: #### CMP #### [facility] ([facility]) [address] [place] [address] VIRGlucose [Mass/Vol]344 mg/lGKtxe23-14XmeDpuqjp Carias HospitalComment on above:Performed By: #### CMP #### [facility] ([facility]) [address] [place] [address] VIRGlucose [Mass/Vol]318 mg/gDNezf26-34EyrFmdvkq Carias HospitalComment on above:Performed By: #### BEDG #### [facility] ([facility]) [address] [place] [address] VIRGlucose [Mass/Vol]409 mg/dLCritically ngrb53-76WmtNhyihe Carias HospitalComment on above:Performed By: #### BEDG #### [facility] ([facility]) [address] [place] [address] VIRBEDSIDE GLUCOSE BEDG>^500Critically unuq33-10NyfRdeqdzSt. Elizabeth HospitalComment on above:Performed By: #### BEDG #### [facility] ([facility]) [address] [place] [address] VIRBEDSIDE GLUCOSE BEDG>^500Critically afuf34-53WbkPpqmugMarietta Osteopathic ClinicComment on above:Performed By: #### BEDG #### [facility] ([facility]) [address] [place] [address] VIRBedside Glucose *Place/Obtain serum glucose if >500 per glucometer.on [id number] [Mass/Vol]238 mg/pVZnmv99 - 99 mg/dLLake County Memorial Hospital - WestInterpretation and review of laboratory resultsAbnoSelect Specialty Hospital - HarrisburgGlucose [Mass/Vol]114 mg/zMDzfs66 - 99 mg/dL [facility] - WestInterpretation and review of laboratory resultsAbnormal [facility] HealthGlucose [Mass/Vol]269 mg/lLGjbm20 - 99 mg/dLLake County Memorial Hospital - WestGlucose [Mass/Vol]237 mg/tMCape87 - 99 mg/dL [facility] - WestGlucose [Mass/Vol]281 mg/yGYupz24 - 99 mg/dLLake County Memorial Hospital - WestInterpretation and review of laboratory resultsAbnormalGrand View HealthGlucose [Mass/Vol]301 mg/cCJplk44 - 99 mg/dL [facility] WestInterpretation and review of laboratory resultsAbnormal [facility] HealthGlucose [Mass/Vol]287 mg/eRRszp84 - 99 mg/dLLake County Memorial Hospital - WestInterpretation and review of laboratory results AbnormalGrand View HealthGlucose [Mass/Vol]344 mg/xTEkso92 - 99 mg/dLLake County Memorial Hospital - WestInterpretation and review of laboratory resultsAbnormSauk Prairie Memorial Hospital SystemGlucose [Mass/Vol]318 mg/tZLvka32 - 99 mg/dLUniversity [facility]als [facility] SystemInterpretation and review of laboratory resultsAbnormalProOakleaf Surgical Hospital SystemGlucose [Mass/Vol]409 mg/dLCritically high65 - 99 mg/dLProFort Hamilton Hospital SystemInterpretation and review of laboratory resultsAbnormSauk Prairie Memorial Hospital SystemGlucose [Mass/Vol]mg/dLCritically high65 - 99 mg/dL [facility] SystemInterpretation and review of laboratory resultsAbnormal [facility] SystemGlucose [Mass/Vol]mg/dLCritically high65 - 99 mg/dLUniversity Hospitals Beachwood [facility] SystemInterpretation and review of laboratory resultsAbnoSelect Specialty Hospital - HarrisburgCB WITH AUTO DIFFERENTIALon [id number] ABSOLUTE COUNT (10*3/UL) BY AUTOMATED COUNT 0.1 10*3/uLNormal0.0-0.2PLake County Memorial Hospital - WestComment on above:Performed By: #### CBCA #### [facility] ([facility]) [address] [place] [address] VIRBASOPHILS RELATIVE PERCENT BY AUTOMATED COUNT1.5 %Normal [facility] HospitalComment on above:Performed By: #### CBCA #### [facility] ([facility]) [address] [place] [address] VIRCELLAVISION DIFFERENTIAL TYPEAUTOMATED DIFFERENTIALNormal St. Elizabeth HospitalComment on above:Performed By: #### CBCA #### [facility] ([facility]) [address] [place] [address] VIREosinophils (Bld) [#/Vol]0.2 10*3/uLNormal0.0-0.4St. Elizabeth HospitalComment on above:Performed By: #### CBCA #### [facility] ([facility]) [address] [place] [address] VIREOSINOPHILS RELATIVE PERCENT BY AUTOMATED COUNT2.3 %Normal [facility] HospitalComment on above:Performed By: #### CBCA #### [facility] ([facility]) [address] [place] [address] VIRErythrocyte distribution width (RBC) [Ratio]13.5 %Normal 11.5-15[facility] [place] HospitalComment on above:Performed By: #### CBCA #### [facility] ([facility]) [address] [place] [address] VIRHematocrit (Bld) [Volume fraction]34.1 %Qjt02-02FxjEvmoee [place] HospitalComment on above:Performed By: #### CBCA #### [facility] ([facility]) [address] [place] [address] VIRHemoglobin (Bld) [Mass/Vol]11.7 g/iRKsgsdl04.7-15.5[facility] [place] HospitalComment on above:Performed By: #### CBCA #### [facility] ([facility]) [address] [place] [address] VIRLYMPHOCYTES ABSOLUTE COUNT (10*3/UL) BY AUTOMATED COUNT2.6 10*3/uLNormal1.0-3.5ProMedUC [facility] HospitalComment on above:Performed By: #### CBCA #### [facility] ([facility]) [address] [place] [address] VIRLYMPHOCYTES RELATIVE PERCENT BY AUTOMATED COUNT33.5 %Normal [facility]MThe [facility] HospitalComment on above:Performed By: #### CBCA #### [facility] ([facility]) [address] [place] [address] VIRMCH (RBC) [Entitic mass]30.7 bxVgwqcm42-15YprOefsom [place] HospitalComment on above:Performed By: #### CBCA #### [facility] ([facility]) [address] [place] [address] VIRMCHC (RBC) [Mass/Vol]34.3 g/eKZrgcoh67-89AvoQozbeo [place] HospitalComment on above:Performed By: #### CBCA #### [facility] ([facility]) [address] [place] [address] VIRMCV (RBC) [Entitic vol]89 qFBkkrev12-964ClnAxbcqp [place] HospitalComment on above:Performed By: #### CBCA #### [facility] ([facility]) [address] [place] [address] VIRMONOCYTES ABSOLUTE COUNT (10*3/UL) BY AUTOMATED COUNT0.5 10*3/uLNormal0.0-0.9ProMarietta Osteopathic ClinicComment on above:Performed By: #### CBCA #### [facility] ([facility]) [address] [place] [address] VIRMONOCYTES RELATIVE PERCENT BY AUTOMATED COUNT6.3 %Normal [facility]MThe [facility] HospitalComment on above:Performed By: #### CBCA #### [facility] ([facility]) [address] [place] [address] VIRNEUTROPHILS ABSOLUTE COUNT BY AUTOMATED COUNT4.4 10*3/uL Normal1.5-6.6ProOhio Valley Surgical Hospital HospitalComment on above:Performed By: #### CBCA #### [facility] ([facility]) [address] [place] [address] VIRNEUTROPHILS RELATIVE PERCENT BY AUTOMATED COUNT56.4 %Normal [facility] HospitalComment on above:Performed By: #### CBCA #### [facility] ([facility]) [address] [place] [address] VIRPlatelet mean volume (Bld) [Entitic vol]7.5 fLNormal7-12 [facility]MThe [facility] HospitalComment on above:Performed By: #### CBCA #### [facility] ([facility]) [address] [place] [address] VIRPlatelets (Bld) [#/Vol]244 10*3/eZAjfvuv698-264VgoUsigvs [place] HospitalComment on above:Performed By: #### CBCA #### [facility] ([facility]) [address] [place] [address] VIRRBC COUNT3.81 X10E12/LNormal3.8-5.2PMcCullough-Hyde Memorial Hospital Hospital Comment on above:Performed By: #### CBCA #### [facility] ([facility]) [address] [place] [address] VIRWBC (Bld) [#/Vol]7.7 10*3/uLNormal4-11ProOhio Valley Surgical Hospital HospitalComment on above:Performed By: #### CBCA #### [facility] ([facility]) [address] [place] [address] VIRBASOPHILS ABSOLUTE COUNT (10*3/UL) BY AUTOMATED COUNT0.1 10*3/uLNormal0.0-0.2PLake County Memorial Hospital - WestComment on above:Performed By: #### CBCA #### [facility] ([facility]) [address] [place] [address] VIRBASOPHILS RELATIVE PERCENT BY AUTOMATED COUNT1.0 %Normal [facility] HospitalComment on above:Performed By: #### CBCA #### [facility] ([facility]) [address] [place] [address] VIRCELLAVISION DIFFERENTIAL TYPEAUTOMATED DIFFERENTIALNormal [facility]MThe [facility] HospitalComment on above:Performed By: #### CBCA #### [facility] ([facility]) [address] [place] [address] VIREosinophils (Bld) [#/Vol]0.1 10*3/uLNormal0.0-0.4ProOhio Valley Surgical Hospital HospitalComment on above:Performed By: #### CBCA #### [facility] ([facility]) [address] [place] [address] VIREOSINOPHILS RELATIVE PERCENT BY AUTOMATED COUNT2.1 %Normal [facility] HospitalComment on above:Performed By: #### CBCA #### [facility] ([facility]) [address] [place] [address] VIRErythrocyte distribution width (RBC) [Ratio]13.5 %Normal 11.5-15ProOhio Valley Surgical Hospital HospitalComment on above:Performed By: #### CBCA #### [facility] ([facility]) [address] [place] [address] VIRHematocrit (Bld) [Volume fraction]38.7 %Jkhamy08-73XjjEsvnva [place] HospitalComment on above:Performed By: #### CBCA #### [facility] ([facility]) [address] [place] [address] VIRHemoglobin (Bld) [Mass/Vol]13.2 g/kTAsubrx25.7-15.5ProMed[facility] HospitalComment on above:Performed By: #### CBCA #### [facility] ([facility]) [address] [place] [address] VIRLYMPHOCYTES ABSOLUTE COUNT (10*3/UL) BY AUTOMATED COUNT1.7 10*3/uLNormal1.0-3.5PMcCullough-Hyde Memorial Hospital HospitalComment on above:Performed By: #### CBCA #### [facility] ([facility]) [address] [place] [address] VIRLYMPHOCYTES RELATIVE PERCENT BY AUTOMATED COUNT24.3 %Normal [facility] HospitalComment on above:Performed By: #### CBCA #### [facility] ([facility]) [address] [place] [address] VIRMCH (RBC) [Entitic mass]31.0 bbDywtpe12-38GpeIsqwyf [place] HospitalComment on above:Performed By: #### CBCA #### [facility] ([facility]) [address] [place] [address] VIRMCHC (RBC) [Mass/Vol]34.0 g/mSXuzxvf27-09NpvBpajvv [facility] [place] HospitalComment on above:Performed By: #### CBCA #### [facility] ([facility]) [address] [place] [address] VIRMCV (RBC) [Entitic vol]91 yJFtdmmn50-176DmvHmwtyh [facility] [place] HospitalComment on above:Performed By: #### CBCA #### [facility] ([facility]) [address] [place] [address] VIRMONOCYTES ABSOLUTE COUNT (10*3/UL) BY AUTOMATED COUNT0.4 10*3/uLNormal0.0-0.9[facility] HospitalComment on above:Performed By: #### CBCA #### [facility] ([facility]) [address] [place] [address] VIRMONOCYTES RELATIVE PERCENT BY AUTOMATED COUNT6.1 %Normal [facility] HospitalComment on above:Performed By: #### CBCA #### [facility] ([facility]) [address] [place] [address] VIRNEUTROPHILS ABSOLUTE COUNT BY AUTOMATED COUNT4.7 10*3/uL Normal1.5-6.6ProOhiohealth Mansfield Hospitalca [place] HospitalComment on above:Performed By: #### CBCA #### [facility] ([facility]) [address] [place] [address] VIRNEUTROPHILS RELATIVE PERCENT BY AUTOMATED COUNT66.5 %Normal [facility] HospitalComment on above:Performed By: #### CBCA #### [facility] ([facility]) [address] [place] [address] VIRPlatelet mean volume (Bld) [Entitic vol]8.2 fLNormal7-12 [facility] HospitalComment on above:Performed By: #### CBCA #### [facility] ([facility]) [address] [place] [address] VIRPlatelets (Bld) [#/Vol]234 10*3/hUEfdrpu510-649UxuXiscjz [place] HospitalComment on above:Performed By: #### CBCA #### [facility] ([facility]) [address] [place] [address] VIRRBC COUNT4.24 X10E12/LNormal3.8-5.2POverton Brooks VA Medical Centerica [facility] Comment on above:Performed By: #### CBCA #### [facility] ([facility]) [address] [place] [address] VIRWBC (Bld) [#/Vol]7.1 10*3/uLNormal4-11ProMarietta Osteopathic ClinicComment on above:Performed By: #### CBCA #### [facility] ([facility]) [address] [place] [address] VIRCBC auto differentialon [id number] (Bld) [#/Vol]0.1 10*3/uL0.0 - 0.2 10*3/uLProFort Hamilton Hospital SystemBasophils/100 WBC (Bld)1.5 % [facility] - WestDifferential cell count method Nom (Bld)AUTOMATED DIFFERENTIALLake County Memorial Hospital - WestEosinophils (Bld) [#/Vol]0.2 10*3/uL0.0 - 0.4 10*3/uLLake County Memorial Hospital - WestEosinophils/100 WBC (Bld)2.3 %[facility] - WestErythrocyte distribution width (RBC) [Ratio]13.5 %11.5 - 15 %[facility] SystemHematocrit (Bld) [Volume fraction]34.1 %Low35 - 47 %[facility] SystemHemoglobin (Bld) [Mass/Vol]11.7 g/dL11.7 - 15.5 g/dLLake County Memorial Hospital - WestInterpretation and review of laboratory resultsAbnormalLake County Memorial Hospital - WestLymphocytes (Bld) [#/Vol]2.6 10*3/uL1.0 - 3.5 10*3/[facility] HospitalLymphocytes/100 WBC (Bld)33.5 %[facility] - WestMCH (RBC) [Entitic mass]30.7 pg27 - 34 [facility] HospitalMCHC (RBC) [Mass/Vol]34.3 g/dL32 - 36 g/dLLake County Memorial Hospital - WestMCV (RBC) [Entitic vol]89 fL80 - 100 fL [facility] - WestMonocytes (Bld) [#/Vol]0.5 10*3/uL0.0 - 0.9 10*3/uL [facility] WestMonocytes/100 WBC (Bld)6.3 %[facility] Neutrophils (Bld) [#/Vol]4.4 10*3/uL1.5 - 6.6 10*3/[facility] Neutrophils/100 WBC (Bld)56.4 %[facility] - WestPlatelet mean volume (Bld) [Entitic vol]7.5 fL7 - 12 [facility] Medical CenterPlatelets (Bld) [#/Vol]244 10*3/[facility] HospitalRBC (Bld) [#/Vol]3.81 10*6/[facility] HospitalWBC LM Ql (Sput)7.7Grand View HealthBasophils (Bld) [#/Vol]0.1 10*3/uL0.0 - 0.2 10*3/[facility] HospitalBasophils/100 WBC (Bld)1 %[facility] WestDifferential cell count method Nom (Bld) AUTOMATED DIFFERENTIALLake County Memorial Hospital - WestEosinophils (Bld) [#/Vol]0.1 10*3/uL0.0 - 0.4 10*3/[facility] HospitalEosinophils/100 WBC (Bld)2.1 % [facility] - WestErythrocyte distribution width (RBC) [Ratio]13.5 %11.5 - 15 %[facility] - WestHematocrit (Bld) [Volume fraction]38.7 %35 - 47 % [facility] - WestHemoglobin (Bld) [Mass/Vol]13.2 g/dL11.7 - 15.5 g/dL [facility] - WestLymphocytes (Bld) [#/Vol]1.7 10*3/uL1.0 - 3.5 10*3/uL [facility] - WestLymphocytes/100 WBC (Bld)24.3 %[facility] HospitalH (RBC) [Entitic mass]31 pg27 - 34 [facility] HospitalMCHC (RBC) [Mass/Vol] 34 g/dL32 - 36 g/dLLake County Memorial Hospital - WestMCV (RBC) [Entitic vol]91 fL80 - 100 [facility] CenterMonocytes (Bld) [#/Vol]0.4 10*3/uL0.0 - 0.9 10*3/uL [facility] WestMonocytes/100 WBC (Bld)6.1 %[facility] Neutrophils (Bld) [#/Vol]4.7 10*3/uL1.5 - 6.6 10*3/uLLake County Memorial Hospital - West Neutrophils/100 WBC (Bld)66.5 %[facility] - WestPlatelet mean volume (Bld) [Entitic vol]8.2 fL7 - 12 [facility] CenterPlatelets (Bld) [#/Vol]234 10*3/uLLake County Memorial Hospital - WestRBC (Bld) [#/Vol]4.24 10*6/[facility] HospitalWBC LM Ql (Sput)7.1PBryn Mawr Rehabilitation Hospital COMPREHENSIVE METABOLIC PANELon [id number] [Mass/Vol]3.4 g/dLNormal 3.2-5.3PLake County Memorial Hospital - WestComment on above:Performed By: #### CMP #### [facility] ([facility]) [address] [place] [address] VIRALP [Catalytic activity/Vol]104 U/CUcrvlc76-783JdcKdvrejSt. Elizabeth HospitalComment on above:Performed By: #### CMP #### [facility] ([facility]) [address] [place] [address] VIRALT [Catalytic activity/Vol]10 U/LNormal<=31[facility] HospitalComment on above:Performed By: #### CMP #### [facility] ([facility]) [address] [place] [address] VIRAnion gap [Moles/Vol]11 mmol/LNormal5-15[facility] HospitalComment on above:Performed By: #### CMP #### [facility] ([facility]) [address] [place] [address] VIRAST [Catalytic activity/Vol]11 U/LNormal<=41[facility] HospitalComment on above:Performed By: #### CMP #### [facility] ([facility]) [address] [place] [address] VIRBilirubin [Mass/Vol]0.4 mg/dLNormal0.3-1.2ProMedUC [facility] HospitalComment on above:Performed By: #### CMP #### [facility] ([facility]) [address] [place] [address] VIRCalcium [Mass/Vol]8.1 mg/dLLow8.5-10.5PMcCullough-Hyde Memorial Hospital HospitalComment on above:Performed By: #### CMP #### [facility] ([facility]) [address] [place] [address] VIRChloride [Moles/Vol]101 mmol/WBliyzw55-049DpqYgybpm [place] HospitalComment on above:Performed By: #### CMP #### [facility] ([facility]) [address] [place] [address] VIRCO2 [Moles/Vol]21 mmol/AQvx70-24SxxQjnrrn [facility] Comment on above:Performed By: #### CMP #### [facility] ([facility]) [address] [place] [address] VIRCreatinine [Mass/Vol]1.40 mg/dLHigh0.40-1.00ProOhio Valley Surgical Hospital HospitalComment on above:Result Comment: METHOD TRACEABLE TO IDMS STANDARD Performed By: #### CMP #### [facility] ([facility]) [address] [place] [address] VIRGFR/1.73 sq M.predicted among non-blacks MDRD (S/P/Bld) [Vol rate/Area]47 mL/min/{1.73_m2}Low>=60Pro[facility] HospitalComment on above: Result Comment: Reported eGFR is based on the CKD-EPI 2020 equation that does not use a race coefficient.Performed By: #### CMP #### [facility] ([facility]) [address] [place] [address] VIRGlucose [Mass/Vol]640 mg/dLCritically wuzo61-93BsiKgiipl [place] HospitalComment on above:Performed By: #### CMP #### [facility] ([facility]) [address] [place] [address] VIRPotassium [Moles/Vol]4.3 mmol/LNormal3.5-5.0[facility] [place] HospitalComment on above:Performed By: #### CMP #### [facility] ([facility]) [address] [place] [address] VIRProtein [Mass/Vol]6.0 g/dLNormal6.0-8.0ProOhiohealth Mansfield Hospitalca [place] HospitalComment on above:Performed By: #### CMP #### [facility] ([facility]) [address] [place] [address] VIRSodium [Moles/Vol]133 mmol/NIvq116-776ZknEdkhbu [place] HospitalComment on above:Performed By: #### CMP #### [facility] ([facility]) [address] [place] [address] VIRUrea nitrogen [Mass/Vol]21 mg/dLNormal5-23[facility] [place] HospitalComment on above:Performed By: #### CMP #### [facility] ([facility]) [address] [place] [address] VIRComprehensive metabolic panelOrdered By: Etelvina Richards on [id number] [Mass/Vol]3.4 g/dL3.2 - 5.3 g/dLProNorth [facility] Regional [facility] Health SystemALP [Catalytic activity/Vol]104 U/L39 - 130 U/LProMedica Health SystemALT No additional P-5'-P [Catalytic activity/Vol]10 U/LNINF - 31 U/LProMedica Health SystemAnion gap [Moles/Vol]11 mmol/L5 - 15 mmol/LProMedica Health SystemAST [Catalytic activity/Vol]11 U/LNINF - 41 U/LProMedica Health SystemBilirubin [Mass/Vol]0.4 mg/dL0.3 - 1.2 mg/dLProFort [facility] SystemCalcium [Mass/Vol]8.1 mg/dLLow8.5 - 10.5 mg/dLProFort Hamilton Hospital SystemChloride [Moles/Vol]101 mmol/L98 - 109 mmol/LProMedica Health SystemCO2 [Moles/Vol]21 mmol/LLow22 - 32 mmol/L [facility] WestCreatinine [Mass/Vol]1.4 mg/dLHigh0.40 - 1.00 mg/dL [facility] WestComment on above:METHOD TRACEABLE TO IDFL STANDARDEGFR Non-Race Vreilqssv69Pke- PINMercy Health Urbana Hospital SystemComment on above:Reported eGFR is based on the CKD-EPI 2020 equation that does not use a race coefficient. Glucose [Mass/Vol]640 mg/dLCritically high65 - 99 mg/dLUniversity Hospitals [facility] System Interpretation and review of laboratory resultsAbnormalProFort Hamilton Hospital System Potassium [Moles/Vol]4.3 mmol/L3.5 - 5.0 mmol/LProMedica Health SystemProtein [Mass/Vol]6 g/dL6.0 - 8.0 g/dLHarrison Community Hospital Health SystemSodium [Moles/Vol]133 mmol/AXji928 - 146 mmol/LPrHawthorn Children's Psychiatric Hospitalica Health SystemUrea nitrogen [Mass/Vol]21 mg/dL 5 - 23 mg/dLUniversity Hospitals Beachwood [facility] Center SystemProFort [facility] Hospital SystemELECTROLYTE PANELon [id number] gap [Moles/Vol]6 mmol/LNormal5-15ProNorth [facility] Comment on above:Performed By: #### BEDG #### [facility] ([facility]) [address] [place] [address] VIRChloride [Moles/Vol]110 mmol/QMbrb14-525DldTsdfqy Carias HospitalComment on above:Performed By: #### BEDG #### [facility] ([facility]) [address] [place] [address] VIRCO2 [Moles/Vol]20 mmol/WRqj72-67CauGcbsdh [facility] Comment on above:Performed By: #### BEDG #### [facility] ([facility]) [address] [place] [address] VIRPotassium [Moles/Vol]4.4 mmol/LNormal3.5-5.0[facility] HospitalComment on above:Performed By: #### BEDG #### [facility] ([facility]) [address] [place] [address] VIRSodium [Moles/Vol]136 mmol/DRshxvz773-457NpfYdzjcn [facility] HospitalComment on above:Performed By: #### BEDG #### [facility] ([facility]) [address] [place] [address] VIRELECTROLYTE PANELELEC ELECTROLYTE PANEL CancelledNormal [facility] HospitalComment on above:Order Comment: See [id number] gap [Moles/Vol]7 mmol/LNormal5-15[facility] HospitalComment on above: Performed By: #### BEDG #### [facility] ([facility]) [address] [place] [address] VIRChloride [Moles/Vol]109 mmol/GDldokc02-061JmoEzrkxr [facility] HospitalComment on above:Performed By: #### BEDG #### [facility] ([facility]) [address] [place] [address] VIRCO2 [Moles/Vol]21 mmol/VRpq27-35KwxWmgdcr [facility] Comment on above:Performed By: #### BEDG #### [facility] ([facility]) [address] [place] [address] VIRPotassium [Moles/Vol]4.4 mmol/LNormal3.5-5.0[facility] HospitalComment on above:Performed By: #### BEDG #### [facility] ([facility]) [address] [place] [address] VIRSodium [Moles/Vol]137 mmol/IYutlzo428-970JnuNvvqpz [facility] HospitalComment on above:Performed By: #### BEDG #### [facility] ([facility]) [address] [place] [address] VIRAnion gap [Moles/Vol]8 mmol/LNormal5-15[facility] HospitalComment on above:Performed By: #### CMP #### [facility] ([facility]) [address] [place] [address] VIRChloride [Moles/Vol]107 mmol/BJlcouq79-606NqeOxzlpa [facility] HospitalComment on above:Performed By: #### CMP #### [facility] ([facility]) [address] [place] [address] VIRCO2 [Moles/Vol]23 mmol/WZnkjxf50-26IvwDwdxhc [facility] Comment on above:Performed By: #### CMP #### [facility] ([facility]) [address] [place] [address] VIRPotassium [Moles/Vol]4.2 mmol/LNormal3.5-5.0[facility] HospitalComment on above:Performed By: #### CMP #### [facility] ([facility]) [address] [place] [address] VIRSodium [Moles/Vol]138 mmol/XHnsaxg999-624HekEjvnns [facility] HospitalComment on above:Performed By: #### CMP #### [facility] ([facility]) [address] [place] [address] VIRAnion gap [Moles/Vol]7 mmol/LNormal5-15[facility] HospitalComment on above:Performed By: #### CMP #### [facility] ([facility]) [address] [place] [address] VIRChloride [Moles/Vol]106 mmol/DIgluhb54-354CxqEaxflu [facility] HospitalComment on above:Performed By: #### CMP #### [facility] ([facility]) [address] [place] [address] VIRCO2 [Moles/Vol]24 mmol/HGftcmh84-45NhoFsdquj [facility] Comment on above:Performed By: #### CMP #### [facility] ([facility]) [address] [place] [address] VIRPotassium [Moles/Vol]4.2 mmol/LNormal3.5-5.0[facility] HospitalComment on above:Performed By: #### CMP #### [facility] ([facility]) [address] [place] [address] VIRSodium [Moles/Vol]137 mmol/APcfbjy435-201MmkAgseib [facility] HospitalComment on above:Performed By: #### CMP #### [facility] ([facility]) [address] [place] [address] VIRAnion gap [Moles/Vol]11 mmol/LNormal5-15[facility] HospitalComment on above:Performed By: #### CMP #### [facility] ([facility]) [address] [place] [address] VIRChloride [Moles/Vol]105 mmol/DZpqzpb25-081VnoGlljfn [facility] HospitalComment on above:Performed By: #### CMP #### [facility] ([facility]) [address] [place] [address] VIRCO2 [Moles/Vol]21 mmol/GLgf05-64VlfBivlxtLake County Memorial [facility] Comment on above:Performed By: #### CMP #### [facility] ([facility]) [address] [place] [address] VIRPotassium [Moles/Vol]3.8 mmol/LNormal3.5-5.0ProMarietta Osteopathic ClinicComment on above:Performed By: #### CMP #### [facility] ([facility]) [address] [place] [address] VIRSodium [Moles/Vol]137 mmol/WTllguz572-690DzbVonjxe [place] HospitalComment on above:Performed By: #### CMP #### [facility] ([facility]) [address] [place] [address] VIRELECTROLYTE PANELELEC ELECTROLYTE PANEL CancelledNoal St. Elizabeth HospitalElectrolyte panelon 98-32-6709Gqjuj gap [Moles/Vol]7 mmol/L5 - 15 mmol/LProMedica Health [...] Health System Interpretation and review of laboratory resultsNormalHarrison [facility] Potassium [Moles/Vol]4.2 mmol/L3.5 - 5.0 [...] mmol/LProMedica Health SystemInterpretation and review of laboratory resultsAbnormalProOhiohealth Mansfield Hospitalca Health SystemPotassium [Moles/Vol]3.8 mmol/L3.5 - 5.0 mmol/LProMedica Health SystemSodium [Moles/Vol]137 mmol/L134 - 146 mmol/LProMedica Health System ProMedica Health SystemHEMOGLOBIN A1Con 49-81-9130Oblswhi [Mass/Vol]344 mg/dL NormalProMarietta Osteopathic ClinicComment on above:Performed By: #### [id number] #### [facility] ([facility]) [address] [place] [address] KDSBvZ2c (Bld) [Mass fraction]13.6 %High4.4-5.6ProMarietta Osteopathic ClinicComment on above:Result Comment: ADA Guidelines Result HgbA1c Normal : less than 5.7 % Prediabetes : 5.7 % to 6.4 % Diabetes : > 6.4 % Use with caution in patients with abnormal hemoglobin variants as the half-life of red blood cells and in vivo glycation rates are affected.Performed By: #### HA1C #### [facility] ([facility]) [address] [place] [address] VIRHemoglobin A1con 48-75-8592Szdgfsq glucose Estimated from glycated hemoglobin (Bld) [Mass/Vol]344 mg/dLLake County Memorial Hospital - WestHbA1c (Bld) [Mass fraction]13.6 %High4.4 - 5.6 %[facility] Hospital - WestComment on above:ADA Guidelines Result HgbA1c Normal : less than 5.7 % Prediabetes : 5.7 % to 6.4 % Diabetes : > 6.4 % Use with caution in patients with abnormal hemoglobin variants as the half-life of red blood cells and in vivo glycation rates are affected. Interpretation and review of laboratory resultsAbnoAurora BayCare Medical CenterNo Panel Informationon 50-30-5838Yctulyrwcacjxo and review of laboratory resultsAbnoProHealth Memorial Hospital [facility] WITH REFLEXon 41-76-8133KNZ0.02 uIU/mLNormal0.49-4.67St. Elizabeth HospitalComment on above:Performed By: #### TSHR #### [facility] ([facility]) [address] [place] [address] VIRT with Reflexon 95-56-9233Jajsbcvjvyatke and review of laboratory resultsNoNovant Health Matthews [facility] Center Qn3.02 m[IU]/LProMedica [facility]30on 31-92-556274Ugd patient is Moderately Stable - Low risk of patient condition declining or worsening The patient's goals for the shift include comfort The clinical goals for the shift include safetyNormalUniversity of Oakbend Medical CenterBASIC METABOLIC PANELon 51-13-6619Bfaki gap [Moles/Vol]9 mmol/L Normal7-20UnSelect Medical Specialty Hospital - Columbus SouthComment on above:Performed By: #### [id number] #### [facility]) [address] [place], [place] [address]Bcowyvm [Mass/Vol]8.4 mg/dLLow8.6-10.3UnSelect Medical Specialty Hospital - [place] SouthComment on above:Performed By: #### [id number] #### [facility] ([facility]) [address] [place] [address]Solcxnrt [Moles/Vol]109 mmol/VUotg52-080ThococwwldSelect Medical Specialty Hospital - Columbus SouthComment on above:Performed By: #### [id number] #### [facility] ([facility]) [address] [place] [address]JJ0 [Moles/Vol]28 mmol/WAyxjbq40-30UajxpjuqhbSelect Medical Specialty Hospital - Columbus SouthComment on above:Performed By: #### [id number] #### [facility] ([facility]) [address] [place] [address]Mopbmsjxey [Mass/Vol]1.26 mg/dLHigh0.60-1.20UnSelect Medical Specialty Hospital - [place] SouthComment on above:Performed By: #### [id number] #### [facility] ([facility]) [address] [place] [address]EVAYDHEOHW FILTRATION RATE ML/MIN/1.73 SQ M.XOVXSLKGD85.0 mL/min/1.73m*2Low>60.0UnSelect Medical Specialty Hospital - [place] SouthComment on above:Result Comment: [facility]???s estimated glomerular filtration rate (eGFR) will [...] affect anyone group of individuals.Performed By: #### [id number] #### [facility] ([facility]) [address] [place] [address]Wbipkgo [Mass/Vol]108 mg/aFSifm37-541ToxjvqxvirSelect Medical Specialty Hospital - Columbus SouthComment on above:Performed By: #### [id number] #### [facility] ([facility]) [address] [place] [address]Xzbunetoi [Moles/Vol]4.1 mmol/LNormal3.5-5.1UnSelect Medical Specialty Hospital - [place] SouthComment on above:Performed By: #### [id number] #### [facility] ([facility]) [address] [place] [address]Tqudgd [Moles/Vol]142 mmol/TDrvitk676-682BlmdmacvliSelect Medical Specialty Hospital - Columbus SouthComment on above:Performed By: #### [id number] #### [facility] ([facility]) [address] [place] [address]Vuhr nitrogen [Mass/Vol]28 mg/dLHigh7-25UnSelect Medical Specialty Hospital - [place] SouthComment on above:Performed By: #### [id number] #### [facility] ([facility]) [address] [place] [address]PAXA NITROGEN/CREATININE (MASS RATIO) IN SER/PLAS22.2Normal [facility] HospitalComment on above:Performed By: #### [id number] #### [facility] ([facility]) [address] [place], [place] [address]PRY WITH AUTO DIFFERENTIALon 18-25-8572Tqjdlrkwl (Bld) [#/Vol] 0.06 10*3/uLNormal0.00-0.20UnSelect Medical Specialty Hospital - [place] SouthComment on above: Performed By: #### [id number] ####[facility] ([facility])[address] [place], [place] [address]Djblwijjl/100 WBC (Bld)1.1 %High0.0-1.0UnSelect Medical Specialty Hospital - [place] SouthComment on above:Performed By: #### [id number] ####[facility] ([facility])[address] [place], [place] [address]Rpljxlhuhik (Bld) [#/Vol]0.19 10*3/uL Normal0.00-0.50UnSelect Medical Specialty Hospital - [place] SouthComment on above:Performed By: #### [id number] ####[facility] ([facility])[address] [place] [address] Eosinophils/100 WBC (Bld)3.5 %Normal0.0-6.0Un[facility] Comment on above:Performed By: #### [id number] ####[facility] ([facility])[address] [place], [place] [address]Xlmqspnfxfx distribution width (RBC) [Ratio]13.5 % Ytnnjm57.5-15.0UnSelect Medical Specialty Hospital - [place] SouthComment on above:Performed By: #### [id number] ####[facility] ([facility])[address] [place] [address] ERYTHROCYTE MEAN CORPUSCULAR HEMOGLOBIN CONCENTRATION (G/DL) BY FMVPBSAQN73.4 g/tQPfpcpr40.0-35.0UnSelect Medical Specialty Hospital - [place] SouthComment on above:Performed By: #### [id number] ####[facility] ([facility])[address] [place], [place] [address]Hxiwajlswk (Bld) [Volume fraction]31.5 %Low36.0-45.0UnSelect Medical Specialty Hospital - Columbus SouthComment on above:Performed By: #### [id number] ####[facility] ([facility])[address] [place], [place] [address]Bqxuqdzxpo (Bld) [Mass/Vol]10.2 g/dL Low12.0-15.0UnSelect Medical Specialty Hospital - Columbus SouthComment on above:Performed By: #### [id number] ####[facility] [place] [address] Immature granulocytes (Bld) [#/Vol]0.02 10*3/uLNormal0.00-0.20UnSelect Medical Specialty Hospital - [facility] SouthComment on above:Performed By: #### [id number] ####[facility] ([facility])[address] [place], [place] [address]Jwixgbap granulocytes/100 WBC (Bld)0.4 %Normal0.0-1.0UnSelect Medical Specialty Hospital - Columbus SouthComment on above: Performed By: #### [id number] ####[facility] ([facility])[address] [place], [place] [address]Qvcmntommqw (Bld) [#/Vol]2.24 10*3/uLNormal1.20-4.00 [facility] HospitalComment on above:Performed By: #### [id number] ####[facility] ([facility])[address] [place] [address]Abtukjtxdhv/100 WBC (Bld)41.0 %Rwrklt30.0-45.0UnSelect Medical Specialty Hospital - Columbus SouthComment on above:Performed By: #### [id number] ####[facility] ([facility])[address] [place], [place] [address]KSO (RBC) [Entitic mass]30.4 abJfthem05.0-33.0UnSelect Medical Specialty Hospital - [facility] SouthComment on above:Performed By: #### [id number] ####[facility] ([facility])[address] [place], [place] [address]ZOR (RBC) [Entitic vol] 93.8 pHUihqzk76.0-98.0UnSelect Medical Specialty Hospital - Columbus SouthComment on above: Performed By: #### [id number] ####[facility] ([facility])[address] [place], [place] [address]Dodbusmgf (Bld) [#/Vol]0.48 10*3/uLNormal0.10-1.00UnSelect Medical Specialty Hospital - Columbus SouthComment on above:Performed By: #### [id number] ####[facility] ([facility])[address] [place], [place] [address]Yjjheinhj/100 WBC (Bld) 8.8 %Normal5.0-12.0UnSelect Medical Specialty Hospital - Columbus SouthComment on above:Performed By: #### [id number] ####[facility] ([facility])[address] [place], [place] [address]Azzdyhuaadj (Bld) [#/Vol]2.48 10*3/uLNormal1.60-7.60UnSelect Medical Specialty Hospital - [facility] SouthComment on above:Performed By: #### [id number] ####[facility] ([facility])[address] [place], [place] [address]Vxrrhwatwvn/100 WBC (Bld)45.2 %Normal 40.0-72.0UnSelect Medical Specialty Hospital - Columbus SouthComment on above:Performed By: #### [id number] ####[facility] ([facility])[address] [place] [address]GZHI (PER 100 WBCS) BY AUTOMATED COUNT0.0 %Kjrtkt8SfszvrpbogSelect Medical Specialty Hospital - [facility] South Comment on above:Performed By: #### [id number] ####[facility] ([facility])[address] [address]NGDPTFYJW (10*3/UL) IN BLOOD AUTOMATED SVYVC110 10*3/aDHagpta489-857HrhxsmmvzxSelect Medical Specialty Hospital - Columbus SouthComment on above: Performed By: #### [id number] ####[facility] ([facility])[address] [address]TPQ (Bld) [#/Vol]3.36 10*6/uLLow3.80-5.00UnSelect Medical Specialty Hospital - [facility] SouthComment on above:Performed By: #### [id number] ####[facility] ([facility])[address] [address]SFU (Bld) [#/Vol]5.47 10*3/uLNormal 4.00-10.60UnSelect Medical Specialty Hospital - [facility] SouthComment on above:Performed By: #### [id number] ####[facility] ([facility])[address] [address]UHXZ GLUCOSE METER UNSOLICITED RESULTSon 93-66-7894Omjrzmg [Mass/Vol]115 mg/dLHigh 70-105UnSelect Medical Specialty Hospital - [facility] SouthComment on above:Order Comment: Waived Testing in the ED is performed under the ED CLIA certificate #[id number].Result Comment: [email or web address] By: #### [id number] #### [facility] [address] [place] [address]Mpctaqe [Mass/Vol]123 mg/gQExas81-557QjhqsnptgbSelect Medical Specialty Hospital - Columbus SouthComment on above:Order Comment: Waived Testing in the ED is performed under the ED CLIA certificate #[id number].Result Comment: [email or web address] Performed By: #### [id number] ####[facility] ([facility])[address] [place], [place] [address]XOXKG METABOLIC PANELon 53-95-8796Sgyob gap [Moles/Vol]10 mmol/LNormal7-20UnSelect Medical Specialty Hospital - Columbus SouthComment on above:Performed By: #### [id number] #### [facility] ([facility]) [address] [place], [place] [address]Bhtnxfy [Mass/Vol]8.2 mg/dLLow8.6-10.3UnSelect Medical Specialty Hospital - Columbus SouthComment on above:Performed By: #### [id number] #### [facility] ([facility]) [address] [place], [place] [address]Ycsituqw [Moles/Vol]106 mmol/PUesack92-036JdnsbwjjmnSelect Medical Specialty Hospital - Columbus SouthComment on above:Performed By: #### [id number] #### [facility] ([facility]) [address] [place], [place] [address]FK7 [Moles/Vol]26 mmol/GGhajmx45-74HrrxzkomazSelect Medical Specialty Hospital - Columbus SouthComment on above:Performed By: #### [id number] #### [facility] ([facility]) [address] [place], [place] [address]Unmrbhpvno [Mass/Vol]1.75 mg/dLHigh0.60-1.20UnSelect Medical Specialty Hospital - Columbus SouthComment on above:Performed By: #### [id number] #### [facility] ([facility]) [address] [place], [place] [address]UFRKMZGJDF FILTRATION RATE ML/MIN/1.73 SQ M.ZBHLUAOJT82.7 mL/min/1.73m*2Low>60.0UnSelect Medical Specialty Hospital - [facility] SouthComment on above:Result Comment: [facility]???s estimated glomerular filtration rate (eGFR) will [...] affect anyone group of individuals.Performed By: #### [id number] #### [facility] ([facility]) [address] [place], [place] [address]Zmmuarc [Mass/Vol]134 mg/sLHeqb65-578PdpnjhktgbSelect Medical Specialty Hospital - Columbus SouthComment on above:Performed By: #### [id number] #### [facility] ([facility]) [address] [place], [place] [address]Weaoxdzpm [Moles/Vol]4.0 mmol/LNormal3.5-5.1UnSelect Medical Specialty Hospital - [facility] SouthComment on above:Performed By: #### [id number] #### [facility] ([facility]) [address] [place], [place] [address]Pjizjb [Moles/Vol]138 mmol/SRofizs112-294ZfnjltwkcmSelect Medical Specialty Hospital - Columbus SouthComment on above:Performed By: #### [id number] #### [facility] ([facility]) [address] [place], [place] [address]Dmuq nitrogen [Mass/Vol]36 mg/dLHigh7-25UnSelect Medical Specialty Hospital - Columbus SouthComment on above:Performed By: #### [id number] #### [facility] ([facility]) [address] [place], [place] [address]MHLK NITROGEN/CREATININE (MASS RATIO) IN SER/PLAS20.6Normal [facility] HospitalComment on above:Performed By: #### [id number] #### [facility] ([facility]) [address] [place], [place] [address]JEXJSUM, IONIZEDon 32-97-6605THTVQRB IONIZED (MMOL/L) IN BLOOD 1.23 mmol/LNormal1.15-1.33UnSelect Medical Specialty Hospital - [facility] SouthComment on above: Performed By: #### [id number] #### [facility] ([facility]) [address] [facility] [place] [address]KGM WITH AUTO DIFFERENTIALon 34-40-0804Nlufzifqj (Bld) [#/Vol] 0.04 10*3/uLNormal0.00-0.20UnSelect Medical Specialty Hospital - [facility] SouthComment on above: Performed By: #### [id number] #### [facility] ([facility]) [address] [place] [address]Ygpkowkba/100 WBC (Bld)0.6 %Normal0.0-1.0UnSelect Medical Specialty Hospital - Columbus SouthComment on above:Performed By: #### [id number] #### [facility] ([facility]) [address] [place] [address]Ggdwmincxlo (Bld) [#/Vol]0.17 10*3/uLNormal0.00-0.50UnSelect Medical Specialty Hospital - [facility] SouthComment on above:Performed By: #### [id number] #### [facility] ([facility]) [address] [place], [place] [address]Byyfvboabuh/100 WBC (Bld)2.7 %Normal0.0-6.0UnSelect Medical Specialty Hospital - Columbus SouthComment on above:Performed By: #### [id number] #### [facility] ([facility]) [address] [place], [place] [address]Kdcthukoggf distribution width (RBC) [Ratio]13.4 %Normal 11.5-15.0UnSelect Medical Specialty Hospital - Columbus SouthComment on above:Performed By: #### [id number] #### [facility] ([facility]) [address] [place], [place] [address]OXTUHUBRKGL MEAN CORPUSCULAR HEMOGLOBIN CONCENTRATION (G/DL) BY YUAPSTJWD96.9 g/dLLow32.0-35.0UnSelect Medical Specialty Hospital - Columbus SouthComment on above:Performed By: #### [id number] #### [facility] ([facility]) [address] [place], [place] [address]Oendkhhigs (Bld) [Volume fraction]31.3 %Low36.0-45.0UnSelect Medical Specialty Hospital - Columbus SouthComment on above:Performed By: #### [id number] #### [facility] ([facility]) [address] [place] [address]Tpxjsbkqjj (Bld) [Mass/Vol]10.0 g/dLLow12.0-15.0UnSelect Medical Specialty Hospital - Columbus SouthComment on above:Performed By: #### [id number] #### [facility] ([facility]) [address] [place] [address]Wqcicgjs granulocytes (Bld) [#/Vol]0.02 10*3/uLNormal0.00-0.20 [facility] HospitalComment on above:Performed By: #### [id number] #### [facility] ([facility]) [address] [place] [address]Uzbsujvv granulocytes/100 WBC (Bld)0.3 %Normal0.0-1.0UnSelect Medical Specialty Hospital - Columbus SouthComment on above:Performed By: #### [id number] #### [facility] ([facility]) [address] [place] [address]Pkzkxstqgbe (Bld) [#/Vol]1.83 10*3/uLNormal1.20-4.00UnSelect Medical Specialty Hospital - [place] SouthComment on above:Performed By: #### [id number] #### [facility] ([facility]) [address] [place] [address]Augmrwnfrka/100 WBC (Bld)29.5 %Sfemao94.0-45.0UnSelect Medical Specialty Hospital - [place] SouthComment on above:Performed By: #### [id number] #### [facility] ([facility]) [address] [place] [address]OHE (RBC) [Entitic mass]30.2 faAotbdb55.0-33.0Un[facility] - [place] SouthComment on above:Performed By: #### [id number] #### [facility] ([facility]) [address] [place] [address]IDG (RBC) [Entitic vol]94.6 nTZalzbt45.0-98.0Un[facility] - [place] SouthComment on above:Performed By: #### [id number] #### [facility] ([facility] [address] [place] [address]Omvsckcwz (Bld) [#/Vol]0.49 10*3/uLNormal0.10-1.00Un[facility] - [place] SouthComment on above:Performed By: #### [id number] #### [facility] ([facility]) [address] [place] [address]Uoubcyknv/100 WBC (Bld)7.9 %Normal5.0-12.0Un[facility] - [place] SouthComment on above:Performed By: #### [id number] #### [facility] ([facility]) [address] [place] [address]Yjoonqokwak (Bld) [#/Vol]3.66 10*3/uLNormal1.60-7.60Un[facility] - [place] SouthComment on above:Performed By: #### [id number] #### [facility] ([facility]) [address] [place] [address]Wuxrwjyqyud/100 WBC (Bld)59.0 %Xnpmht57.0-72.0Un[facility] - [place] SouthComment on above:Performed By: #### [id number] #### [facility] ([facility]) [address] [place] [address]DMTN (PER 100 WBCS) BY AUTOMATED COUNT0.0 %Ohzniu8ErblabmwrhSelect Medical Specialty Hospital - Columbus SouthComment on above:Performed By: #### [id number] #### [facility] ([facility]) [address] [place] [address]JNWVWCHRF (10*3/UL) IN BLOOD AUTOMATED RAMGH133 10*3/uLNormal 150-400UnSelect Medical Specialty Hospital - Columbus SouthComment on above:Performed By: #### [id number] #### [facility] ([facility] [address] [place] [address]KAW (Bld) [#/Vol]3.31 10*6/uLLow3.80-5.00UnSelect Medical Specialty Hospital - Columbus SouthComment on above:Performed By: #### [id number] #### [facility] ([facility]) [address] [place] [address]GUA (Bld) [#/Vol]6.21 10*3/uLNormal4.00-10.60UnSelect Medical Specialty Hospital - Columbus SouthComment on above:Performed By: #### [id number] #### [facility] ([facility]) [address] [place] [address]IBAK GLUCOSE METER UNSOLICITED RESULTSon 84-75-9991Auwivpj [Mass/Vol]237 mg/pNMyde40-630EinlvnddngSelect Medical Specialty Hospital - Columbus SouthComment on above:Order Comment: Waived Testing in the ED is performed under the ED CLIA certificate #[id number].Result Comment: [email or web address] Critical Value NotedPerformed By: #### [id number] ####[facility] ([facility])[address] [place] [address]Eeqxabz [Mass/Vol]213 mg/qLZfzc60-491 [facility] HospitalComment on above:Order Comment: Waived Testing in the ED is performed under the ED CLIA certificate #[id number].Result Comment: [email or web address] By: #### [id number] #### [facility] ([facility]) [address] [place] [address]Dpxpelm [Mass/Vol]211 mg/hEJvef82-981VtljjyppccSelect Medical Specialty Hospital - Columbus SouthComment on above:Order Comment: Waived Testing in the ED is performed under the ED CLIA certificate #[id number].Result Comment: [email or web address] Performed By: #### [id number] #### [facility] ([facility]) [address] [place] [address]Xlxasix [Mass/Vol]160 mg/qIIvmc12-830RgjwxqqsbySelect Medical Specialty Hospital - Columbus SouthComment on above:Order Comment: Waived Testing in the ED is performed under the ED CLIA certificate #[id number].Result Comment: [email or web address] Performed By: #### [id number] #### [facility] ([facility]) [address] [place] [address]QJYQRRSfo 63-24-6557Vrfwvyv [Mass/Vol]2.5 g/dLLow3.5-5.7 [facility] HospitalComment on above:Performed By: #### [id number] ####[facility] ([facility])[address] [place] [address]MKQIH METABOLIC PANELon 98-24-6631Pdgue gap [Moles/Vol]9 mmol/LNormal7-20UnSelect Medical Specialty Hospital - Columbus SouthComment on above:Performed By: #### [id number] ####[facility] ([facility])[address] [place] [address]Iauijrt [Mass/Vol]6.6 mg/dLLow8.6-10.3 [facility] HospitalComment on above:Performed By: #### [id number] ####[facility] ([facility])[address] [place] [address]Rcvcennn [Moles/Vol]110 mmol/MHpju29-031EnvuumhoshSelect Medical Specialty Hospital - Columbus SouthComment on above:Performed By: #### [id number] ####[facility] ([facility])[address] [address]NI8 [Moles/Vol]23 mmol/WRiwfen38-83CgoxsbpxniSelect Medical Specialty Hospital - Columbus SouthComment on above:Performed By: #### [id number] ####[facility] ([facility])[address] [place] [address]Uvojkhfqyj [Mass/Vol]1.89 mg/dLHigh 0.60-1.20UnSelect Medical Specialty Hospital - Columbus SouthComment on above:Performed By: #### [id number] ####[facility] ([facility])[address] [place] [address]GANWVFLRTD FILTRATION RATE ML/MIN/1.73 SQ M.AQWJKUMWM21.6 mL/min/1.73m*2Low>60.0UnSelect Medical Specialty Hospital - Columbus SouthComment on above:Result Comment: [facility]???s estimated glomerular filtration rate (eGFR) will [...] group of individuals. Performed By: #### [id number] ####[facility] ([facility])[address] [place], [place] [address]Zgxkpfu [Mass/Vol]164 mg/rERxbg98-567QhbpcsmwtgSelect Medical Specialty Hospital - Columbus SouthComment on above:Performed By: #### [id number] ####[facility] ([facility])[address] [place], [place] [address]Ajoxjtlzu [Moles/Vol]3.7 mmol/LNormal 3.5-5.1UnSelect Medical Specialty Hospital - Columbus SouthComment on above:Performed By: #### [id number] ####[facility] ([facility])[address] [place], [place] [address]Nigpby [Moles/Vol]138 mmol/JIztrlg779-564DlulqsxgmqSelect Medical Specialty Hospital - Columbus SouthComment on above:Performed By: #### [id number] ####[facility] ([facility])[address] [place], [place] [address]Twaf nitrogen [Mass/Vol]32 mg/dLHigh7-25UnSelect Medical Specialty Hospital - Columbus SouthComment on above:Performed By: #### [id number] ####[facility] ([facility])[address] [place], [place] [address]HESC NITROGEN/CREATININE (MASS RATIO) IN SER/PLAS16.9NormalUniversLakeHealth TriPoint Medical CenterComment on above: Performed By: #### [id number] ####[facility] ([facility])[address] [place], [place] [address]NNJ WITH AUTO DIFFERENTIALon 12-18-8301Dicjruliy (Bld) [#/Vol]0.04 10*3/uLNormal0.00-0.20UnSelect Medical Specialty Hospital - Columbus SouthComment on above: Performed By: #### [id number] ####[facility] ([facility])[address] [place], [place] [address]Dfmehalkx/100 WBC (Bld)0.5 %Normal0.0-1.0UnSelect Medical Specialty Hospital - Columbus SouthComment on above:Performed By: #### [id number] ####[facility] ([facility])[address] [place], [place] [address]Jvfhsnabouw (Bld) [#/Vol]0.09 10*3/uL Normal0.00-0.50UnSelect Medical Specialty Hospital - Columbus SouthComment on above:Performed By: #### [id number] ####[facility] ([facility])[address] [place] [address] Eosinophils/100 WBC (Bld)1.2 %Normal0.0-6.0UnSelect [facility] South Comment on above:Performed By: #### [id number] ####[facility] ([facility])[address] [place], [place] [address]Drtfxgcnabt distribution width (RBC) [Ratio]13.5 % Decidw79.5-15.0UnSelect Medical Specialty Hospital - Columbus SouthComment on above:Performed By: #### [id number] ####[facility] ([facility])[address] [place] [address] ERYTHROCYTE MEAN CORPUSCULAR HEMOGLOBIN CONCENTRATION (G/DL) BY BNWVXAGAZ55.7 g/zSKmofxg18.0-35.0UnSelect Medical Specialty Hospital - Columbus SouthComment on above:Performed By: #### [id number] ####[facility] ([facility])[address] [place], [place] [address]Jmmpljsxik (Bld) [Volume fraction]26.6 %Low36.0-45.0UnSelect Medical Specialty Hospital - Columbus SouthComment on above:Performed By: #### [id number] ####[facility] ([facility])[address] [place], [place] [address]Hsaibtpsab (Bld) [Mass/Vol]8.7 g/dLLow 12.0-15.0UnSelect Medical Specialty Hospital - Columbus SouthComment on above:Performed By: #### [id number] ####[facility] ([facility])[address] [place], [place] [address]Uifpumyp granulocytes (Bld) [#/Vol]0.03 10*3/uLNormal0.00-0.20UnSelect Medical Specialty Hospital - Columbus SouthComment on above:Performed By: #### [id number] ####[facility] ([facility])[address] [place], [place] [address]Ukldhreb granulocytes/100 WBC (Bld)0.4 %Normal0.0-1.0UnSelect Medical Specialty Hospital - Columbus SouthComment on above:Performed By: #### [id number] ####[facility] ([facility])[address] [place] [address] Lymphocytes (Bld) [#/Vol]1.44 10*3/uLNormal1.20-4.00UnSelect Medical Specialty Hospital - Columbus SouthComment on above:Performed By: #### [id number] ####[facility] ([facility])[address] [facility] [address]Rssqggqxcxb/100 WBC (Bld)19.6 %Low 20.0-45.0UnSelect Medical Specialty Hospital - Columbus SouthComment on above:Performed By: #### [id number] ####[facility] ([facility])[address] [place], [place] [address]USI (RBC) [Entitic mass]30.4 spGeuqzn82.0-33.0UnSelect [facility] Comment on above:Performed By: #### [id number] ####[facility] ([facility])[address] [place], [place] [address]MAT (RBC) [Entitic vol]93.0 yMYrjatf65.0-98.0 [facility] HospitalComment on above:Performed By: #### [id number] ####[facility] ([facility])[address] [place], [place] [address]Coxcnbdzd (Bld) [#/Vol]0.49 10*3/uLNormal0.10-1.00UnSelect Medical Specialty Hospital - Columbus SouthComment on above:Performed By: #### [id number] ####[facility] ([facility])[address] [place] [address]Eakugeoks/100 WBC (Bld)6.7 %Normal5.0-12.0UnSelect Medical Specialty Hospital - Columbus SouthComment on above:Performed By: #### [id number] ####[facility] ([facility])[address] [place] [address]Lnlsjpxifgk (Bld) [#/Vol] 5.26 10*3/uLNormal1.60-7.60UnSelect Medical Specialty Hospital - Columbus SouthComment on above: Performed By: #### [id number] ####[facility] ([facility])[address] [place] [address]Fegattwabil/100 WBC (Bld)71.6 %Fvndds14.0-72.0UnSelect Medical Specialty Hospital - Columbus SouthComment on above:Performed By: #### [id number] ####[facility] ([facility])[address] [place] [address]CEAG (PER 100 WBCS) BY AUTOMATED COUNT0.0 %Qrplnx5XlbaqhkjlsSelect Medical Specialty Hospital - Columbus SouthComment on above: Performed By: #### [id number] ####[facility] ([facility])[address] [place] [address]YMWSWCYSZ (10*3/UL) IN BLOOD AUTOMATED HEIZF065 10*3/uLNormal 150-400UnSelect Medical Specialty Hospital - Columbus SouthComment on above:Performed By: #### [id number] ####[facility] ([facility])[address] [place], [place] [address]ZUE (Bld) [#/Vol]2.86 10*6/uLLow3.80-5.00UnSelect Medical Specialty Hospital - Columbus SouthComment on above:Performed By: #### [id number] ####[facility] ([facility])[address] [place] [address]QKY (Bld) [#/Vol]7.35 10*3/uLNormal4.00-10.60UnSelect Medical Specialty Hospital - Columbus SouthComment on above:Performed By: #### [id number] ####[facility] ([facility])[address] [place], [place] [address]PRTL GLUCOSE METER UNSOLICITED RESULTSon 79-77-3602Bfzdqgd [Mass/Vol]168 mg/bOKwtu87-273FuqheqvkqdSelect Medical Specialty Hospital - Columbus SouthComment on above:Order Comment: Waived Testing in the ED is performed under the ED CLIA certificate #[id number].Result Comment: [email or web address] Critical Value NotedPerformed By: #### [id number] #### [facility] ([facility]) [address] [place] [address]Rcitehd [Mass/Vol]96 mg/cVQfvtvg11-119HqrfbaawrqSelect Medical Specialty Hospital - Columbus SouthComment on above:Order Comment: Waived Testing in the ED is performed under the ED CLIA certificate #[id number].Result Comment: [email or web address] Performed By: #### [id number] ####[facility] ([facility])[address] [place], [place] [address]Swbpgcd [Mass/Vol]171 mg/xVEsdx56-118HhrwjngasmSelect Medical Specialty Hospital - Columbus SouthComment on above:Order Comment: Waived Testing in the ED is performed under the ED CLIA certificate #[id number].Result Comment: [email or web address] Performed By: #### [id number] ####[facility] ([facility])[address] [place], [place] [address]Hiyrwmj [Mass/Vol]105 mg/bVKbbxfj77-547ClktpzfpqjSelect Medical Specialty Hospital - Columbus SouthComment on above:Order Comment: Waived Testing in the ED is performed under the ED CLIA certificate #[id number].Result Comment: [email or web address] Performed By: #### [id number] ####[facility] ([facility])[address] [place], [place] [address]UWUUE METABOLIC PANELon 37-86-8235Mxodc gap [Moles/Vol]13 mmol/LNormal7-20UnSelect Medical Specialty Hospital - Columbus SouthComment on above:Performed By: #### [id number] #### [facility] ([facility]) [address] [place], [place] [address]Fudbvfq [Mass/Vol]7.3 mg/dLLow8.6-10.3UnSelect Medical Specialty Hospital - Columbus SouthComment on above:Performed By: #### [id number] #### [facility] ([facility]) [address] [place] [place], [place] [address]Yrruoifb [Moles/Vol]105 mmol/FNrmstc55-240XbuwskecctSelect Medical Specialty Hospital - Columbus SouthComment on above:Performed By: #### [id number] #### [facility] ([facility]) [address] [place] [place], [place] [address]HK5 [Moles/Vol]20 mmol/KLyj43-54TvhlvhafkwSelect Medical Specialty Hospital - Columbus SouthComment on above:Performed By: #### [id number] #### [facility] ([facility]) [address] [place], [place] [address]Dtzzmkcqdc [Mass/Vol]3.00 mg/dLHigh0.60-1.20UnSelect Medical Specialty Hospital - Columbus SouthComment on above:Performed By: #### [id number] #### [facility] ([facility]) [address] [place], [place] [address]FHUKYEIYMD FILTRATION RATE ML/MIN/1.73 SQ M.CQDOIJKJC01.7 mL/min/1.73m*2Low>60.0UnSelect Medical Specialty Hospital - Columbus SouthComment on above:Result Comment: [facility]???s estimated glomerular filtration rate (eGFR) will [...] affect anyone group of individuals.Performed By: #### [id number] #### [facility] ([facility]) [address] [place], [place] [address]Iyvdkun [Mass/Vol]239 mg/tYIxfy94-249FwihinbepdSelect Medical Specialty Hospital - Columbus SouthComment on above:Performed By: #### [id number] #### [facility] ([facility]) [address] [place] [address]Axjaybftk [Moles/Vol]4.2 mmol/LNormal3.5-5.1UnSelect Medical Specialty Hospital - Columbus SouthComment on above:Performed By: #### [id number] #### [facility] ([facility]) [address] [place] [address]Rtwtlb [Moles/Vol]134 mmol/WWww978-757NlirydjeflSelect Medical Specialty Hospital - Columbus SouthComment on above:Performed By: #### [id number] #### [facility] ([facility]) [address] [place] [address]Tlrg nitrogen [Mass/Vol]29 mg/dLHigh7-25UnSelect Medical Specialty Hospital - Columbus SouthComment on above:Performed By: #### [id number] #### [facility] ([facility]) [address] [place] [address]RNAE NITROGEN/CREATININE (MASS RATIO) IN SER/PLAS9.7Normal [facility] HospitalComment on above:Performed By: #### [id number] #### [facility] ([facility]) [address] [place] [address]ILhd 69-40-37[address]ZIAEIEBX KINASE (U/L) IN SER/PLAS56.0 U/LNormal 30.0-223.0UnSelect Medical Specialty Hospital - Columbus SouthComment on above:Performed By: #### [id number] #### [facility] ([facility]) [address] [place] [address]OXPKEBNtw 67-49-6244ARZYDBD Attestation signed by Elisabeth Fowler MD at [...] Faculty, Division of Nephrology, Department of Medicine, [facility]. Nephrology Consult Note Patient : Addie [...] edema, morbid obesity who was taken to [facility] ED as she was noted to [...] were noted to be elevated 180-->166 pg/mL. [facility] Cardiology was consulted from [facility] and she is transferred here for [...] leg: No edema. Neurolog (more content not included)...NormalUnSelect Medical Specialty Hospital - [facility] South CREATININE, URINE, RANDOMon 10-03-3927Ypkagpnuul (U) [Mass/Vol]200.0 mg/dLNormal 26-299UnSelect Medical Specialty Hospital - [facility] SouthComment on above:Performed By: #### [id number] #### [facility] ([facility]) [address] [place], [place] [address]EJNRDQEIXgf 21-37-1427Sskpazbmx [Mass/Vol]2.2 mg/dLNormal1.9-2.7 [facility] HospitalComment on above:Performed By: #### [id number] #### [facility] ([facility]) [address] [place], [place] [address]IZKJ GLUCOSE METER UNSOLICITED RESULTSon 39-85-1606Etfaeea [Mass/Vol]314 mg/sCPzsb49-885WplxcrooxkSelect Medical Specialty Hospital - Columbus SouthComment on above:Order Comment: Waived Testing in the ED is performed under the ED CLIA certificate #[id number].Result Comment: [email or web address] By: #### [id number] #### [facility] ([facility]) [address] [place], [place] [address]Ljksnmh [Mass/Vol]413 mg/mFDell38-958MijuktovgqMercy Health Willard HospitalComment on above:Order Comment: Waived Testing in the ED is performed under the ED CLIA certificate #[id number].Result Comment: [email or web address] Performed By: #### [id number] #### [facility] ([facility]) [address] [place], [place] [address]Rbjxwja [Mass/Vol]221 mg/kQDwvw70-888CsnkdgiyasSelect Medical Specialty Hospital - Columbus SouthComment on above:Order Comment: Waived Testing in the ED is performed under the ED CLIA certificate #[id number].Result Comment: [email or web address] Performed By: #### [id number] ####[facility] ([facility])[address] [place], [place] [address]Bpsgbqr [Mass/Vol]225 mg/kTIrqt48-420YrlxysciqrMercy Health Willard HospitalComment on above:Order Comment: Waived Testing in the ED is performed under the ED CLIA certificate #[id number].Result Comment: [email or web address] Performed By: #### [id number] ####[facility] ([facility])[address] [place], [place] [address]Rsumyua [Mass/Vol]249 mg/zFFcha97-416QorqdipgjvMercy Health Willard HospitalComment on above:Order Comment: Waived Testing in the ED is performed under the ED CLIA certificate #[id number].Result Comment: [email or web address] Performed By: #### [id number] #### [facility] ([facility]) [address] [place], [place] [address]Pozpfuu [Mass/Vol]213 mg/gWTyay78-449DubjlotxjkMercy Health Willard HospitalComment on above:Order Comment: Waived Testing in the ED is performed under the ED CLIA certificate #[id number].Result Comment: [email or web address] Performed By: #### [id number] #### [facility] ([facility] [address] [place], [place] [address]HWGJNGZ, URINE, RANDOMon 28-46-2728Yvnkpco (U) [Mass/Vol]61.3 mg/dLNormalUniversLakeHealth TriPoint Medical CenterComment on above:Result Comment: There are no established reference values for random urine specimens.Performed By: #### [id number] ####[facility] ([facility])[address] [place] [address] SODIUM, URINE, RANDOMon 40-92-2135Agxrsw (U) [Moles/Vol]28 mmol/LNormal [facility] HospitalComment on above:Performed By: #### [id number] #### [facility] ([facility]) [address] [place], [place] [address]XCDCIWJMCV WITH MICROSCOPICon 40-98-2922BOUFMXPBI, TOTAL PRESENCE IN URINENegativeNormalNegativeUnSelect Medical Specialty [facility] Comment on above:Performed By: #### [id number] #### [facility] ([facility]) [address] [place], [place] [address]SXQYS IN URINEPresentAbnormalNone SeenUnSelect Medical Specialty Hospital - Columbus SouthComment on above:Performed By: #### [id number] #### [facility] ([facility]) [address] [place], [place] [address]Gggvdbj (U)ClearNormalClearUnSelect Medical [facility] Comment on above:Performed By: #### [id number] #### [facility] ([facility]) [address] [place], [place] [address]Glzpc (U)YellowNormalColorless, Yellow, Light-YellowUnSelect Medical Specialty Hospital - Columbus SouthComment on above:Performed By: #### [id number] #### [facility] ([facility]) [address] [place], [place] [address]Nadgwzn (U) [Mass/Vol]mg/dLAbnormalNormalUniversLakeHealth TriPoint Medical CenterComment on above:Performed By: #### [id number] #### [facility] ([facility]) [address] [place], [place] [address]VAWHYZZCYR PRESENCE IN URINENegativeNormalNegJoint Township District Memorial HospitalComment on above:Performed By: #### [id number] #### [facility] ([facility]) [address] [place], [place] [address]BJDYAAD CASTS GRADED/LPF IN URINE SEDIMENT BY MICROSCOPY3-5 Abnormal0-2UnSelect Medical Specialty Hospital - [facility] SouthComment on above:Performed By: #### [id number] #### [facility] ([facility]) [address] [facility] [address] [place], [place] [address]Ifrrlsk Ql (U)NegativeNormalNegativeUnSelect Medical Specialty Hospital - Columbus SouthComment on above:Performed By: #### [id number] #### [facility] ([facility]) [address] [place], [place] [address]IEPBNZASH ESTERASE PRESENCE IN URINE BY TEST STRIPModerate AbnormalNegativeUnSelect Medical Specialty Hospital - Columbus SouthComment on above:Performed By: #### [id number] #### [facility] ([facility]) [address] [place], [place] [address]VKGVMCK PRESENCE IN URINENegativeNormalNegativeUnSelect Medical Specialty Hospital - Columbus SouthComment on above:Performed By: #### [id number] #### [facility] ([facility]) [address] [place], [place] [address]wE (U)5.0 [pH]Normal5.0-8.0Un[facility] Comment on above:Performed By: #### [id number] #### [facility] ([facility]) [address] [place], [place] [address]Fqkoqlr (U) [Mass/Vol]30 mg/dLAbnormalNegativeUnSelect Medical Specialty Hospital - Columbus SouthComment on above:Performed By: #### [id number] #### [facility] ([facility]) [address] [place], [place] [address]EEV (#/HPF) IN URINE SEDIMENT0-2NormalNone Seen, 0-2UnSelect Medical Specialty Hospital - Columbus SouthComment on above:Performed By: #### [id number] #### [facility] ([facility]) [address] [place], [place] [address]Wfoxfohs gravity (U) [Rel density]1.998Cdehgr6.010-1.030 [facility] HospitalComment on above:Performed By: #### [id number] #### [facility] ([facility]) [address] [place] [address]FMLUAHEC EPITHELIAL CELLS (#/LPF) IN URINE SEDIMENTOccasional NormalNone Seen, Occasional, FewUnSelect Medical Specialty Hospital - Columbus SouthComment on above:Performed By: #### [id number] #### [facility] ([facility]) [address] [place] [address]SJUJSUKWUQFM (MG/DL) IN URINENormalNormalNormalUniversity Premier HealthComment on above:Performed By: #### [id number] #### [facility] ([facility]) [address] [place] [address]GFH (LEUKOCYTE) (#/HPF) IN URINE DLKXJLZS13-95AuxxfuyaTame Seen, 0-2UnSelect Medical Specialty Hospital - Columbus SouthComment on above:Performed By: #### [id number] #### [facility] ([facility]) [address] [place], [place] [address]A-OOHL NATRIURETIC PEPTIDEon 68-29-2237Ynqtomqlack peptide B (Bld) [Mass/Vol]19 pg/mLNormal0-100UnSelect Medical Specialty Hospital - Columbus SouthComment on above:Performed By: #### [id number] ####[facility] ([facility])[address] [place] [address]IQD WITH AUTO DIFFERENTIALon 32-32-78[address]Hqkxtrean (Bld) [#/Vol]0.07 10*3/uLNormal0.00-0.20UnSelect Medical Specialty Hospital - Columbus SouthComment on above:Performed By: #### [id number] ####[facility] ([facility])[address] [place] [address]Mqhwtfqqq/100 WBC (Bld)0.9 %Normal0.0-1.0UnSelect Medical Specialty Hospital - Columbus SouthComment on above:Performed By: #### [id number] ####[facility] ([facility])[address] [place] [address]Nmjkhngtbef (Bld) [#/Vol]0.12 10*3/uL Normal0.00-0.50Un[facility] - [place] SouthComment on above:Performed By: #### [id number] ####[facility] ([facility])[address] [place] [address] Eosinophils/100 WBC (Bld)1.5 %Normal0.0-6.0Un[facility] Comment on above:Performed By: #### [id number] ####[facility] ([facility])[address] [place], [place] [address]Ziltdapqywr distribution width (RBC) [Ratio]14.1 % Kfhpgm07.5-15.0Un[facility] - [place] SouthComment on above:Performed By: #### [id number] ####[facility] ([facility])[address] [place] [address] ERYTHROCYTE MEAN CORPUSCULAR HEMOGLOBIN CONCENTRATION (G/DL) BY KZQQKRXAR50.6 g/aTPodnqb10.0-35.0UnSelect Medical Specialty Hospital - Columbus SouthComment on above:Performed By: #### [id number] ####[facility] ([facility])[address] [place], [place] [address]Vudvdzhsuk (Bld) [Volume fraction]34.8 %Low36.0-45.0UnSelect Medical Specialty Hospital - Columbus SouthComment on above:Performed By: #### [id number] ####[facility] ([facility])[address] [place], [place] [address]Usbgedumid (Bld) [Mass/Vol]11.7 g/dL Low12.0-15.0UnSelect Medical Specialty Hospital - Columbus SouthComment on above:Performed By: #### [id number] ####[facility] ([facility])[address] [place] [address] Immature granulocytes (Bld) [#/Vol]0.04 10*3/uLNormal0.00-0.20UnSelect Medical Specialty Hospital - Columbus SouthComment on above:Performed By: #### [id number] ####[facility] ([facility])[address] [place], [place] [address]Mclfjfhm granulocytes/100 WBC (Bld)0.5 %Normal0.0-1.0UnSelect Medical Specialty Hospital - Columbus SouthComment on above: Performed By: #### [id number] ####[facility] ([facility])[address] [place] [address]Abjechlsbhj (Bld) [#/Vol]1.88 10*3/uLNormal1.20-4.00 [facility] HospitalComment on above:Performed By: #### [id number] ####[facility] ([facility])[address] [place] [address]Haddydwtthf/100 WBC (Bld)23.2 %Fcvbfh88.0-45.0UnSelect Medical Specialty Hospital - Columbus SouthComment on above:Performed By: #### [id number] ####[facility] ([facility])[address] [place], [place] [address]YMG (RBC) [Entitic mass]30.5 yePcntno64.0-33.0UnSelect Medical Specialty Hospital - Columbus SouthComment on above:Performed By: #### [id number] ####[facility] ([facility])[address] [place], [place] [address]AQB (RBC) [Entitic vol] 90.9 sCQocjhj38.0-98.0UnSelect Medical Specialty Hospital - Columbus SouthComment on above: Performed By: #### [id number] ####[facility] ([facility])[address] [place], [place] [address]Ogabllryu (Bld) [#/Vol]0.57 10*3/uLNormal0.10-1.00UnSelect Medical Specialty Hospital - Columbus SouthComment on above:Performed By: #### [id number] ####[facility] ([facility])[address] [place], [place] [address]Rcoteivng/100 WBC (Bld) 7.0 %Normal5.0-12.0UnSelect Medical Specialty Hospital - Columbus SouthComment on above:Performed By: #### [id number] ####[facility] ([facility])[address] [place], [place] [address]Jofhaggoedj (Bld) [#/Vol]5.41 10*3/uLNormal1.60-7.60UnSelect Medical Specialty Hospital - Columbus SouthComment on above:Performed By: #### [id number] ####[facility] ([facility] [place] [address]Nntztephewq/100 WBC (Bld)66.9 %Normal 40.0-72.0UnSelect Medical Specialty Hospital - Columbus SouthComment on above:Performed By: #### [id number] ####[facility] ([facility])[address] [place] [address]SRWO (PER 100 WBCS) BY AUTOMATED COUNT0.0 %Ztmllk5AnywkoelflSelect Medical Specialty Hospital - Columbus South Comment on above:Performed By: #### [id number] ####[facility] ([facility])[address] [place] [address]XGOXIXOMT (10*3/UL) IN BLOOD AUTOMATED [id number] 10*3/tSMjkjrx399-395NdniwvbxxsSelect Medical Specialty Hospital - Columbus SouthComment on above: Performed By: #### [id number] ####[facility] ([facility])[address] [place], [place] [address]ZHT (Bld) [#/Vol]3.83 10*6/uLNormal3.80-5.00UnSelect Medical Specialty Hospital - Columbus SouthComment on above:Performed By: #### [id number] ####[facility] ([facility])[address] [place], [place] [address]TUG (Bld) [#/Vol]8.09 10*3/uLNormal4.00-10.60UnSelect Medical Specialty Hospital - Columbus SouthComment on above: Performed By: #### [id number] ####[facility] ([facility] [place], [place] [address]FEFCSYTVUAORO METABOLIC PANELon 59-05-7037Jrogpsm [Mass/Vol] 3.4 g/dLLow3.5-5.7UnSelect Medical Specialty Hospital - Columbus SouthComment on above:Performed By: #### [id number] ####[facility] ([facility])[address] [place] [address] ALP [Catalytic activity/Vol]104 U/HJsuauk39-398DmpfwkalxiSelect Medical Specialty Hospital - Columbus SouthComment on above:Performed By: #### [id number] ####[facility] ([facility])[address] [place], [place] [address]DFX [Catalytic activity/Vol]11 U/L Normal7-52UnSelect Medical Specialty Hospital - Columbus SouthComment on above:Performed By: #### [id number] ####[facility] ([facility])[address] [place], [place] [address]Gdtse gap [Moles/Vol]14 mmol/LNormal7-20UnSelect Medical Specialty Hospital - Columbus SouthComment on above:Performed By: #### [id number] ####[facility] ([facility])[address] [place], [place] [address]EVT [Catalytic activity/Vol]9 U/DHjs42-99JxdtuzfqjmSelect Medical Specialty Hospital - Columbus SouthComment on above:Performed By: #### [id number] ####[facility] ([facility])[address] [place], [place] [address]Fjarcsmeu [Mass/Vol]0.4 mg/dLNormal 0.3-1.0UnSelect Medical Specialty Hospital - Columbus SouthComment on above:Performed By: #### [id number] ####[facility] ([facility])[address] [place], [place] [address]Tmbyfui [Mass/Vol]7.6 mg/dLLow8.6-10.3UnSelect Medical Specialty Hospital - Columbus SouthComment on above:Performed By: #### [id number] ####[facility] ([facility])[address] [place], [place] [address]Wcpqpryv [Moles/Vol]99 mmol/KMetoii07-845RbivrvuvllSelect Medical Specialty Hospital - Columbus SouthComment on above:Performed By: #### [id number] ####[facility] ([facility])[address] [place], [place] [address]VL9 [Moles/Vol]22 mmol/AMkadrd42-04 [facility] Willard HospitalComment on above:Performed By: #### [id number] ####[facility] ([facility])[address] [place] [address]Booijjbujs [Mass/Vol]1.99 mg/dLHigh0.60-1.20UnSelect Medical Specialty Hospital - Columbus SouthComment on above:Performed By: #### [id number] ####[facility] ([facility])[address] [place] [address]MZILNHDEIS FILTRATION RATE ML/MIN/1.73 SQ M.UXUYRYONK39.6 mL/min/1.73m*2Low>60.0UnSelect Medical Specialty Hospital - Columbus SouthComment on above:Result Comment: [facility]???s estimated glomerular filtration rate (eGFR) will [...] anyone group of individuals.Performed By: #### [id number] ####[facility] ([facility])[address] [place] [address]Clsvjdn [Mass/Vol]531 mg/dLCritically fwjn59-866 [facility] HospitalComment on above:Performed By: #### [id number] ####[facility] ([facility])[address] [place] [address]Tvhkozsfz [Moles/Vol]4.1 mmol/LNormal3.5-5.1UnSelect Medical Specialty Hospital - Columbus SouthComment on above:Performed By: #### [id number] ####[facility] ([facility])[address] [place] [address]Njfhivf [Mass/Vol]6.1 g/dLNormal6.0-8.3UnSelect Medical Specialty Hospital - Columbus SouthComment on above:Performed By: #### [id number] ####[facility] ([facility])[address] [place] [address]Caswwa [Moles/Vol]131 mmol/REup762-898 [facility] Willard HospitalComment on above:Performed By: #### [id number] ####[facility] ([facility])[address] [place], [place] [address]Nhsa nitrogen [Mass/Vol]26 mg/dLHigh7-25Mer[facility] Health Willard HospitalComment on above: Performed By: #### [id number] ####[facility] ([facility])[address] [place], [place] [address]GVNY NITROGEN/CREATININE (MASS RATIO) IN SER/PLAS13.1NormalUnSelect Medical Specialty Hospital - Columbus SouthComment on above:Performed By: #### [id number] ####[facility] ([facility])[address] [place], [place] [address]SFZJNAIol 10-01-2024 CONSULTUnGu[facility] V[facility]/Endovascular Surgery 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 Left foot wound History and [...] History: Diagnosis Date Anxiety Bipolar 1 disorder ([facility]/HCC) Cardiac arrest ([facility]) 2019 Chronic back pain Chronic kidney disease Coronary artery disease Depression Diabetes mellitus ([facility]/HCC) Hypertension Insomnia Pacemaker Schizoaffective disorder ([facility]/HCC) Seizures ([facility]) Stroke ([facility]) Past Surgical History Past Surgical History: [...] (ProtoNix) 40 mg EC (more content not included)...[facility] HospitalCONSULT Attestation with edits by Juan C Crabtree MD at 10/01/2024 11:36 PM I personally saw and examined the patient on the same date of service as resident/fellow Dr Ho. I discussed the findings and therapeutic plan with the resident/fellow Dr ho. I agree with the documentation, except for any edits/updates below. Teaching Physician's Revisions: None Juan C Crabtree MD, [facility] Cardiology Consult Note Reason for Consult: Elevated troponin HPI: Addie Jean Baptiste is a 49 y.o. female with past history remarkable for primary hypertension, mixed hyperlipidemia, type 2 diabetes mellitus, sick sinus syndrome s/p PPM placement around 2011, she had a generator replacement few years later for a MRI compatible generator, she reported that the device was upgraded to ICD later in [facility] but we could not find record of that. She also has seizure disorder. She presented to [facility] as transfer from [facility] where she initially presented after a seizure episode associated with vomiting.patient reports 2 seizures episodes prior to this the last couple days. Patient reports that she has been having frequent seizure episodes and she was going to [place] for further evaluation. Her initial labs were [...] palpitations or legs edema. Upon presentation to [facility], she was afebrile and hemodynamically stable, [...] medical history of Anxiety, Bipolar 1 disorder ([facility]), Cardiac arrest ([facility]) (2019), Chronic back pain, Chronic kidney disease, Coronary artery disease, Depression, Diabetes mellitus ([facility]), Hypertension, Insomnia, Pacemaker, Schizoaffective disorder ([facility]), Seizures ([facility]), and Stroke ([facility]). Surgical History She has a past surgical [...] 3 times daily urea (more content not included)...NormalUnSelect Medical Specialty Hospital - [facility] South HEMOGLOBIN A1Con 72-10-0946Hssejcr [Mass/Vol]260 mg/dLNormalUniversity Premier HealthComment on above:Performed By: #### [id number] #### [facility] ([facility]) [address] [place], [place] [address]KtI1c (Bld) [Mass fraction]10.7 %High4.0-6.0UnSelect Medical Specialty Hospital - Columbus SouthComment on above:Performed By: #### [id number] #### [facility] ([facility]) [address] [place], [place] [address]WEGG SENSITIVITY TROPONIN Ion 84-76-3334AA TROPONIN I (NG/L)72 ng/LCritically high<15UnSelect Medical Specialty Hospital - Columbus SouthComment on above: Performed By: #### [id number] #### [facility] ([facility]) [address] [place], [place] [address]HAKNWU ACID WITH 4 HOUR REFLEXon 58-02-0198XPEUABH (MMOL/L) IN SER/PLAS3.1 mmol/LCritically high0.5-2.2Un[facility] Comment on above:Result Comment: Previous result verified on 10/01/2024 1150 on specimen/case [id number] called with component Lactate blood venous for procedure Lactic acid, venous, whole blood with reflex with value 3.4 mmol/L. Performed By: #### [id number] #### [facility] ([facility]) [address] [place], [place] [address]KOAPOMF (MMOL/L) IN SER/PLAS3.4 mmol/LCritically high0.5-2.2 [facility] HospitalComment on above:Performed By: #### [id number] ####[facility] ([facility])[address] [place] [address]FKKPJ PANELon 95-89-1177NANN/HDL4.5 mg/dLNormalUniSumma HealthComment on above:Performed By: #### [id number] ####[facility] ([facility])[address] [place] [address]Fhopfmxnrnz [Mass/Vol]219 mg/nRSyqx459-440JfudjvwgqsSelect Medical Specialty Hospital - Columbus SouthComment on above:Performed By: #### [id number] ####[facility] ([facility])[address] [place] [address]Rlahrluzu [Mass/Vol]207 mg/dLHigh <150UnSelect Medical Specialty Hospital - Columbus SouthComment on above:Result Comment: TRIGLYCERIDE REFERENCE RANGE: 20 YEARS AND OLDER CARDIOVASCULAR RISK LESS THAN 150 mg/dL LOW RISK 150 TO 199 mg/dL BORDERLINE RISK 200 mg/dL AND GREATER HIGH RISKPerformed By: #### [id number] ####[facility] ([facility])[address] [place] [address]Lmdxrvedz [Mass/Vol]129 mg/dLNormal 0-160UnSelect Medical Specialty Hospital - Columbus SouthComment on above:Performed By: #### [id number] ####[facility] ([facility])[address] [place] [address]Bkdzejxvf [Mass/Vol]49 mg/sVIqiffc60-67UniotgpnnqSelect Medical Specialty Hospital - Columbus SouthComment on above:Performed By: #### [id number] ####[facility] ([facility])[address] [place], [place] [address]WWB HDL CHOL. (LDL+VLDL)170NormalUniSumma HealthComment on above:Performed By: #### [id number] ####[facility] [place] [address]DCSIZ VLDL-C41 mg/dLHigh0-40UnSelect Medical Specialty Hospital - Columbus SouthComment on above:Performed By: #### [id number] ####[facility] ([facility])[address] [place], [place] [address]IPEIEIZZKmm 10-01-2024 Magnesium [Mass/Vol]1.5 mg/dLLow1.9-2.7UnSelect [facility] Comment on above:Performed By: #### [id number] ####[facility] ([facility])[address] [place], [place] [address]HYSH GLUCOSE METER UNSOLICITED RESULTSon 10-01-2024 Glucose [Mass/Vol]134 mg/wYBifj97-696TdnkmcserhSelect Medical Specialty Hospital - Columbus SouthComment on above:Order Comment: Waived Testing in the ED is performed under the ED CLIA certificate #[id number].Result Comment: [id number] By: #### [id number] ####[facility] ([facility])[address] [place], [place] [address]Nwuvnhr [Mass/Vol]294 mg/cYLsoz98-998OambvqohadSelect Medical Specialty Hospital - Columbus SouthComment on above:Order Comment: Waived Testing in the ED is performed under the ED CLIA certificate #[id number].Result Comment: [id number] By: #### [id number] #### [facility] ([facility]) [address] [place], [place] [address]Iebovex [Mass/Vol]406 mg/tEAwph86-860AkhqdvmlhcSelect Medical Specialty Hospital - Columbus SouthComment on above:Order Comment: Waived Testing in the ED is performed under the ED CLIA certificate #[id number].Result Comment: [email or web address] Performed By: #### [id number] #### [facility] ([facility]) [address] [place], [place] [address]WXI2 REFLEX TO FT4on 83-17-3358QDHYXJJRMYX (MIU/L) IN SER/PLAS BY DETECTION LIMIT <= 0.05 MIU/L3.71 mIU/LNormal0.34-5.60UnSelect Medical Specialty Hospital - Columbus SouthComment on above:Performed By: #### [id number] #### [facility] ([facility]) [address] [place], [place] [address]XJ LUMBAR SPINE 2-3 VIEWS (STANDARD)on 00-09-8834EE LUMBAR SPINE 2-3 VIEWS (STANDARD)NormalLogansport Memorial HospitalComment on above:Order Comment: Standing AND AP LateralInjury/Trauma or Illness?:Illness/OtherHow long have you had these symptoms (acute/chronic)?:UnknownReason for exam?:Lumbar painHistory of cancer?:uSurgeries, chemotherapy, or radiation?:pacemakerType of Exam?:UnknownAdditional signs and symptoms?:noneBASIC METABOLIC PANELon 48-17-2300Syptk gap [Moles/Vol]20 mmol/FMmidtq09-83ZelzcuLogansport Memorial Hospital Comment on above:Order Comment: [facility] has implemented the eGFR calculation approach that does not have a coefficient for race that conforms to the NKF-ASN Task Force Recommendations.Performed By: #### [id number] ####[facility] [address] [place], [place] [address] Abbi Choudhary M.D. 36D0 2423[address]Fvohsvf [Mass/Vol]8.9 mg/dLNormal8.4-10.2MIndiana University Health Methodist Hospital on above:Order Comment: [facility] has implemented the eGFR calculation approach that does not have a coefficient for race that conforms to the NKF-ASN Task Force Recommendations.Performed By: #### [id number] ####[facility] [address] [place], [place] [address] Abbi Choudhary M.D. [id number] [Moles/Vol]97 mmol/BDlv09-252PsrkjgLogansport Memorial HospitalComcovenant medical center on above:Order Comment: [facility] has implemented the eGFR calculation approach that does not have a coefficient for race that conforms to the NKF-ASN Task Force Recommendations.Performed By: #### [id number] ####[facility] [address] [place], [place] [address] Abbi Choudhary M.D. [id number] [Mass/Vol]1.71 mg/dLHigh0.40-1.10[facility] on above:Order Comment: [facility] has implemented the eGFR calculation approach that does not have a coefficient for race that conforms to the NKF-ASN Task Force Recommendations.Performed By: #### [id number] ####[facility] [address] [place], [place] [address] Abbi Choudhary M.D. [id number] mL/min/1.73 m2Low>=60 [facility] on above:Order Comment: [facility] has implemented the eGFR calculation approach that does not have a coefficient for race that conforms to the NKF-ASN Task Force Recommendations. Result Comment: Estimated GFR was calculated using the 2020 CKD-EPI creatinine equation.Performed By: #### [id number] ####[facility] [address] [place], [place] [address] Abbi Choudhary M.D. [id number] [Mass/Vol]468 mg/dLOff scale high 65-99MIndiana University Health Methodist Hospital on above:Order Comment: [facility] has implemented the eGFR calculation approach that does not have a coefficient for race that conforms to the NKF-ASN Task Force Recommendations.Performed By: #### [id number] ####[facility] [address] [place] [address] Abbi Choudhary M.D. [id number] (Bld) [Moles/Vol]17 mmol/LLow 21-32[facility] on above:Order Comment: [facility] has implemented the eGFR calculation approach that does not have a coefficient for race that conforms to the NKF-ASN Task Force Recommendations.Performed By: #### [id number] ####[facility] [address] [place], [place] [address] Abbi Choudhary M.D. [id number] [Moles/Vol]4.0 mmol/L Normal3.5-5.1MIndiana University Health Methodist Hospital on above:Order Comment: [facility] has implemented the eGFR calculation approach that does not have a coefficient for race that conforms to the NKF-ASN Task Force Recommendations.Performed By: #### [id number] ####[facility] [address] [place], [place] [address] Abbi Choudhary M.D. [id number] [Moles/Vol]130 mmol/LLow 135-145[facility] on above:Order Comment: [facility] has implemented the eGFR calculation approach that does not have a coefficient for race that conforms to the NKF-ASN Task Force Recommendations.Performed By: #### [id number] ####[facility] [address] [place] [address] Abbi Choudhary M.D. [id number] nitrogen [Mass/Vol]30 mg/dLHigh 8-25Logansport Memorial HospitalComment on above:Order Comment: [facility] has implemented the eGFR calculation approach that does not have a coefficient for race that conforms to the NKF-ASN Task Force Recommendations. Performed By: #### [id number] ####[facility] [address] [place] [address] Abbi Choudhary M.D. [id number] nitrogen/Creatinine [Mass ratio]17.5 mg/mgNormal 10.0-20.0[facility] Hospital of Orange Countyment on above:Order Comment: [facility] has implemented the eGFR calculation approach that does not have a coefficient for race that conforms to the NKF-ASN Task Force Recommendations.Performed By: #### [id number] ####[facility] [address] [place] [address] Abbi Choudhary M.D. [id number] WITH AUTO DIFFERENTIALon 21-41-0881EUUZ NRBC0.0 %NormalLogansport Memorial HospitalComment on above:Performed By: #### [id number] ####[facility] [address] [place] [address] Abbi Choudhary M.D. [id number] NRBC ABS COUNT0.00 K/mcLNormal0.00-0.00Logansport Memorial HospitalComment on above:Performed By: #### [id number] ####[facility] [address] [place] [address] Abbi Choudhary M.D. [id number] ABSOLUTE COUNT 0.05 K/mcLNormal0.00-0.30Logansport Memorial HospitalComment on above:Performed By: #### [id number] ####[facility] [address] [place] [address] Abbi Choudhary M.D. [id number]/100 WBC (Bld)0.6 %NormalJohnson Memorial Hospital HospitalComment on above:Performed By: #### [id number] ####[facility] [address] [place] [address] Abbi Choudhary M.D. [id number] (Bld) [#/Vol]0.08 10*3/uLNormal 0.00-0.50[facility] HospitalComment on above:Performed By: #### [id number] ####[facility] [address] [place] [address] Abbi Choudhary M.D. 36 [id number]/100 WBC (Bld)0.9 %NormalJohnson Memorial Hospital HospitalComment on above:Performed By: #### [id number] #### LAB [address] [place] [address] Abbi Choudhary M.D. [id number] distribution width (RBC) [Ratio] 13.3 %Uaiunw45.6-14.8[facility] HospitalComment on above:Performed By: #### [id number] ####[facility] [address] [place] [address] Abbi Choudhary M.D. [id number] (Bld) [Volume fraction]35.3 %Low36.0-46.0[facility] HospitalComment on above:Performed By: #### [id number] ####[facility] [address] [place] [address] Abbi Choudhary M.D. [id number] (Bld) [Mass/Vol]12.1 g/jPNvvnru80.0-16.0[facility] HospitalComment on above: Performed By: #### [id number] ####[facility] [address] [place] [address] Abbi Choudhary M.D. [id number] ABSOLUTE0.04 K/mcLNormal0.00-0.30[facility] HospitalComment on above:Performed By: #### [id number] ####[facility] [address] [place] [address] Abbi Choudhary M.D. [id number] PERCENT0.40 % [facility] HospitalComment on above:Result Comment: The IG parameter is the percentage of metamyelocytes, myelocytes and promyelocytes.An immature granulocyte count (IG) of 1% or more suggests the possibility of infection, an IG countof 3% is very likely related to an infection.Performed By: #### [id number] ####[facility] [address] [place] [address] Abbi Choudhary M.D. 36 [id number] (Bld) [#/Vol]1.49 10*3/uLNormal0.90-4.00Logansport Memorial HospitalComment on above:Performed By: #### [id number] ####[facility] [address] [place] [address] Abbi Choudhary M.D. [id number]/100 WBC (Bld) 16.7 %NormalLogansport Memorial HospitalComment on above:Performed By: #### [id number] ####[facility] [address] [place] [address]Al[place] Choudhary M.D. 36 [id number] (RBC) [Entitic mass]30.5 rnUzdafy63.0-34.0[facility] Comment on above:Performed By: #### [id number] ####[facility] [address] [place] [address]Al[place] Choudhary M.D. [id number] (RBC) [Entitic vol]88.9 fLNormal 80.0-100.0Logansport Memorial HospitalComment on above:Performed By: #### [id number] ####[facility] [address] [place] [address] Abib Choudhary M.D. 36 [id number] CORPUSCULAR HEMOGLOBIN CONC34.3 g/fFHxiuvt13.0-37.0Log[facility]port [facility] HospitalComment on above:Performed By: #### [id number] ####[facility] [address] [address] Abbi Choudhary M.D. [id number] (Bld) [#/Vol] 0.41 10*3/uLNormal0.30-0.90Log[facility]port [facility] HospitalComment on above:Performed By: #### [id number] ####[facility] [address] [address] Abbi Choudhary M.D. [id number]/100 WBC (Bld)4.6 %NormalLogansport Memorial HospitalComment on above:Performed By: #### [id number] ####[facility] [address] [address] Abbi Choudhary M.D. [id number] ABSOLUTE COUNT6.83 K/mcLNormal 1.70-7.00[facility] HospitalComment on above:Performed By: #### [id number] ####[facility] [address] [address] Abbi Choudhary M.D. 36 [id number]/100 WBC (Bld)76.8 %[facility] HospitalComment on above:Performed By: #### [id number] ####[facility] [address] [address] Abbi Choudhary M.D. [id number] mean volume (Bld) [Entitic vol]9.7 fLNormal9.4-12.4[facility] HospitalComment on above:Performed By: #### [id number] ####[facility] [address] [address] Abbi Choudhary M.D. [id number] (Bld) [#/Vol]283 10*3/yLRrbuyz382-308RtufzeLogansport Memorial Hospital Comment on above:Performed By: #### [id number] ####[facility] [address] [address] Abbi Choudhary M.D. [id number] (Bld) [#/Vol]3.97 10*6/uLLow 4.00-5.20[facility] HospitalComment on above:Performed By: #### [id number] ####[facility] [address] [address] Abbi Choudhary M.D. 36 [id number] (Bld) [#/Vol]8.90 10*3/uLNormal4.50-11.00[facility] Comment on above:Performed By: #### [id number] ####[facility] [address] [address] Abbi Choudhary M.D. [id number] OF ABUSE SCREEN, URINEon 54-87-9799XWOEPYSJLXP SCREEN, URINENot detectedNormalNone DetectedLogansport Memorial HospitalComment on above:Order Comment: Screen results should be used for treatment purposes only.Result Comment: Urine Amphetamine Cutoff: < 1000 ng/mL = None DetectedPerformed By: #### [id number] ####[facility] [address] [address] Abbi Choudhary M.D. [id number] SCREEN URINENot detected NormalNone DetectedLogansport Memorial HospitalComment on above:Order Comment: Screen results should be used for treatment purposes only.Result Comment: Urine Barbiturates Cutoff: < 200 ng/mL = None DetectedPerformed By: #### [id number] ####[facility] [address] [address] Abbi Choudhary M.D. [id number] BENZODIAZEPINE SCREEN, URINENot detectedNormalNone DetectedLogansport Memorial HospitalComment on above:Order Comment: Screen results should be used for treatment purposes only.Result Comment: Urine Benzodiazepine Cutoff: < 200 ng/mL = None DetectedPerformed By: #### [id number] ####[facility] [address] [address] Abbi Choudhary M.D. [id number], URINENot detected NormalNone DetectedLogansport Memorial HospitalComcovenant medical center on above:Order Comment: Screen results should be used for treatment purposes only.Result Comment: Urine Buprenorphine Cutoff: < 5 ng/mL = None DetectedPerformed By: #### [id number] ####[facility] [address] [address] Abbi Choudhary M.D. [id number] CANNABINOID SCREEN URINENot detectedNormalNone DetectedLogansport Memorial Hospital Comment on above:Order Comment: Screen results should be used for treatment purposes only.Result Comment: Urine Cannabinoids Cutoff: < 50 ng/mL = None DetectedPerformed By: #### [id number] ####[facility] [address] [address] Abbi Choudhary M.D. [id number], SCREEN URINENot detectedNormalNone DetectedLogansport Memorial HospitalComment on above:Order Comment: Screen results should be used for treatment purposes only.Result Comment: Urine Cocaine Cutoff: < 300 ng/mL = None DetectedPerformed By: #### [id number] ####[facility] [address] [address] Abbi Choudhary M.D. [id number], URINENot detectedNormalNone DetectedLogansport Memorial HospitalComment on above:Order Comment: Screen results should be used for treatment purposes only.Result Comment: Urine Fentanyl Cutoff: < 1 ng/mL = None DetectedPerformed By: #### [id number] ####[facility] [address] [address] Abbi Choudhary M.D. [id number] SCREEN, URINENot detectedNormalNone DetectedLogansport Memorial HospitalComment on above:Order Comment: Screen results should be used for treatment purposes only.Result Comment: Urine Methadone Cutoff: < 300 ng/mL = None DetectedPerformed By: #### [id number] ####[facility] [address] [address] Abbi Choudhary M.D. [id number] SCREEN URINENot detected NormalNone DetectedLogansport Memorial HospitalComment on above:Order Comment: Screen results should be used for treatment purposes only.Result Comment: Urine Opiates Cutoff: < 300 ng/mL = None DetectedPerformed By: #### [id number] ####[facility] [address] [address] Abbi Choudhary M.D. [id number] SCREEN, URINENot detectedNormalNone DetectedLogansport Memorial HospitalComment on above:Order Comment: Screen results should be used for treatment purposes only. Result Comment: Urine Oxycodone Cutoff: < 100 ng/mL = None DetectedPerformed By: #### [id number] ####[facility] [address] [address] Abbi Choudhary M.D. [id number] Prov Noteon 18-12-9093ON Prov NoteNoIndiana University Health Blackford HospitalHEPATIC FUNCTION PANELon 48-43-1605Dofnssy [Mass/Vol]3.5 g/dLNormal 3.2-5.2MSt. Vincent Clay HospitalComment on above:Performed By: #### [id number] ####[facility] [address] [address] Abbi Choudhary M.D. [id number] [Catalytic activity/Vol]107 U/CVavtvn58-397UuxxnyLogansport Memorial HospitalComment on above:Performed By: #### [id number] ####[facility] [address] [address] Abbi Choudhary M.D. [id number] [Catalytic activity/Vol]11 U/LNormal0-35 U/L [facility] HospitalComment on above:Performed By: #### [id number] #### [facility] [address] [address] Abbi Choudhary M.D. [id number] [Catalytic activity/Vol]12 U/LNormal0-35 U/LMSt. Vincent Clay HospitalComment on above:Performed By: #### [id number] ####[facility] [address] [address] Abbi Choudhary M.D. [id number] [Mass/Vol]0.3 mg/dLNormal0.0-1.3MSt. Vincent Clay HospitalComment on above:Performed By: #### [id number] ####[facility] [address] [address] Abbi Choudhary M.D. [id number] Bilirubin.indirect [Mass/Vol]0.2 mg/dLNormal0.0-0.4[facility] Comment on above:Performed By: #### [id number] ####[facility] [address] [place], [place] [address] Abbi Choudhary M.D. [id number] [Mass/Vol]6.5 g/dLNormal 6.0-8.0[facility] HospitalComment on above:Performed By: #### [id number] ####[facility] [address] [place], [place] [address] Abbi Choudhary M.D. [id number] LEVETIRACETAM LEVELon 41-72-5693HOXRLUZVRTKUV<Low6.0-46.0[facility] Comment on above:Performed By: #### [id number] ####[facility] [place], [place] [address] Swapnil Brewer M.D. [id number] 51-00-0100EKEUZQQX ESTIMATENormalNormalNormalLogansport Memorial HospitalComment on above:Performed By: #### [id number] ####[facility] [address] [address] Abbi Choudhary M.D. [id number] MORPH SCAN NormalNormParkview Noble HospitalComment on above:Result Comment: RBC Indices confirmed with manual peripheral smear review.Performed By: #### [id number] ####[facility] [address] [address] Abbi Choudhary M.D. [id number] URINALYSISon 70-21-9686WBYAACOK, URINEFewAbnormalNone SeenLogansport Memorial HospitalComment on above:Order Comment: Microscopic examination is performed on all urinalysis samples and only positive findings are reported. The test for blood on the chemical analytic portion of urinalysis may also be positive due to hemoglobinuria and myoglobinuria and if red blood cells are present they are quantified by microscopic examination.Performed By: #### [id number] ####[facility] [address] [address] Abbi Choudhary M.D. [id number], URINE NegativeNormalNegativeLogansport Memorial HospitalComment on above:Order Comment: Microscopic examination is performed on all urinalysis samples and only positive findings are reported. The test for blood on the chemical analytic portion of urinalysis may also be positive due to hemoglobinuria and myoglobinuria and if red blood cells are present they are quantified by microscopic examination. Performed By: #### [id number] ####[facility] [address] [address] Abbi Choudhary M.D. [id number], URINESmallAbnormalNegSt. Vincent Fishers HospitalComment on above:Order Comment: Microscopic examination is performed on all urinalysis samples and only positive findings are reported. The test for blood on the chemical analytic portion of urinalysis may also be positive due to hemoglobinuria and myoglobinuria and if red blood cells are present they are quantified by microscopic examination.Performed By: #### [id number] ####[facility] [address] [address] Abbi Choudhary M.D. [id number] (U)Hazy AbnormalCleIndiana University Health West HospitalComment on above:Order Comment: Microscopic examination is performed on all urinalysis samples and only positive findings are reported. The test for blood on the chemical analytic portion of urinalysis may also be positive due to hemoglobinuria and myoglobinuria and if red blood cells are present they are quantified by microscopic examination.Performed By: #### [id number] ####[facility] [address] [address] Abbi Choudhary M.D. [id number] (U)YellowNormalColorless, [facility] Comment on above:Order Comment: Microscopic examination is performed on all urinalysis samples and only positive findings are reported. The test for blood on the chemical analytic portion of urinalysis may also be positive due to hemoglobinuria and myoglobinuria and if red blood cells are present they are quantified by microscopic examination.Performed By: #### [id number] ####[facility] [address] [place], [place] [address] Abbi Choudhary M.D. [id number] Ql (U) >=500AbnormalNegSt. Vincent Fishers HospitalComment on above:Order Comment: Microscopic examination is performed on all urinalysis samples and only positive findings are reported. The test for blood on the chemical analytic portion of urinalysis may also be positive due to hemoglobinuria and myoglobinuria and if red blood cells are present they are quantified by microscopic examination. Performed By: #### [id number] ####[facility] [address] [address] Abbi Choudhary M.D. [id number] casts LM Ql (Urine sed)0-4Nagzwv8-3KxyoceIndiana University Health Methodist Hospital on above:Order Comment: Microscopic examination is performed on all urinalysis samples and only positive findings are reported. The test for blood on the chemical analytic portion of urinalysis may also be pos itive due to hemoglobinuria and myoglobinuria and if red blood cells are present they are quantified by microscopic examination.Performed By: #### [id number] ####[facility] [address] [address] Abbi Choudhary M.D. [id number] Ketones Ql (U)NegativeNormalNegSt. Vincent Fishers HospitalComcovenant medical center on above: Order Comment: Microscopic examination is performed on all urinalysis samples and only positive findings are reported. The test for blood on the chemical analytic portion of urinalysis may also be positive due to hemoglobinuria and myoglobinuria and if red blood cells are present they are quantified by microscopic examination.Performed By: #### [id number] ####[facility] [address] [address] Abbi Choudhary M.D. [id number] esterase Test strip Ql (U)NegativeNormalNegativeLogansport Memorial HospitalComcovenant medical center on above:Order Comment: Microscopic examination is performed on all urinalysis samples and only positive findings are reported. The test for blood on the chemical analytic portion of urinalysis may also be positive due to hemoglobinuria and myoglobinuria and if red blood cells are present they are quantified by microscopic examination.Performed By: #### [id number] ####[facility] [address] [address] Abbi Choudhary M.D. [id number], URINENegativeNormal NegativeKing's Daughters Hospital and Health Services on above:Order Comment: Microscopic examination is performed on all urinalysis samples and only positive findings are reported. The test for blood on the chemical analytic portion of urinalysis may also be positive due to hemoglobinuria and myoglobinuria and if red blood cells are present they are quantified by microscopic examination.Performed By: #### [id number] ####[facility] [address] [address] Abbi Choudhary M.D. [id number] (U)5.0 [pH]Normal5.0-7.0[facility] on above:Order Comment: Microscopic examination is performed on all urinalysis samples and only positive findings are reported. The test for blood on the chemical analytic portion of urinalysis may also be positive due to hemoglobinuria and myoglobinuria and if red blood cells are present they are quantified by microscopic examination.Performed By: #### [id number] ####[facility] [address] [place] [address] Abbi Choudhary M.D. [id number] (U) [Mass/Vol]100 mg/dLAbnormalNegativeKing's Daughters Hospital and Health Services on above:Order Comment: Microscopic examination is performed on all urinalysis samples and only positive findings are reported. The test for blood on the chemical analytic portion of urinalysis may also be positive due to hemoglobinuria and myoglobinuria and if red blood cells are present they are quantified by microscopic examination.Performed By: #### [id number] ####[facility] [address] [address] Abbi Choudhary M.D. [id number] LM.HPF (Urine sed) [#/Area]1 /[HPF]Normal0-3MIndiana University Health Methodist Hospital on above:Order Comment: Microscopic examination is performed on all urinalysis samples and only positive findings are reported. The test for blood on the chemical analytic portion of urinalysis may also be positive due to hemoglobinuria and myoglobinuria and if red blood cells are present they are quantified by microscopic examination. Performed By: #### [id number] ####[facility] [address] [address] Abbi Choudhary M.D. [id number] gravity (U) [Rel density]1.017Normal 1.005-1.025[facility] on above:Order Comment: Microscopic examination is performed on all urinalysis samples and only positive findings are reported. The test for blood on the chemical analytic portion of urinalysis may also be positive due to hemoglobinuria and myoglobinuria and if red blood cells are present they are quantified by microscopic examination.Performed By: #### [id number] #### [facility] [address] [address] Abbi Choudhary M.D. [id number] EPITHELIAL1 /hpfNormal0-4[facility] on above:Order Comment: Microscopic examination is performed on all urinalysis samples and only positive findings are reported. The test for blood on the chemical analytic portion of urinalysis may also be positive due to hemoglobinuria and myoglobinuria and if red blood cells are present they are quantified by microscopic examination.Performed By: #### [id number] ####[facility] [address] [place] [address] Abbi Choudhary M.D. [id number], URINE<2.0Normal<2.0[facility] on above:Order Comment: Microscopic examination is performed on all urinalysis samples and only positive findings are reported. The test for blood on the chemical analytic portion of urinalysis may also be positive due to hemoglobinuria and myoglobinuria and if red blood cells are present they are quantified by microscopic examination. Performed By: #### [id number] ####[facility] [address] [place] [address] Abbi Choudhary M.D. [id number] LM.HPF (Urine sed) [#/Area]6 /[HPF]High0-5[facility] HospitalComcovenant medical center on above:Order Comment: Microscopic examination is performed on all urinalysis samples and only positive findings are reported. The test for blood on the chemical analytic portion of urinalysis may also be pos itive due to hemoglobinuria and myoglobinuria and if red blood cells are present they are quantified by microscopic examination.Performed By: #### [id number] ####[facility] [address] [place] [address] Abbi Choudhary M.D. [id number] METABOLIC PANELon 03-47-5886Uqxop gap [Moles/Vol]15 mmol/DKvuhgm25-32EofwmsKing's Daughters Hospital and Health Services on above:Order Comment: [facility] has implemented the eGFR calculation approach that does not have a coefficient for race that conforms to the NKF-ASN Task Force Recommendations.Performed By: #### [id number] ####[facility] [address] [place], [place] [address] Abbi Choudhary M.D. [id number] [Mass/Vol]9.4 mg/dLNormal8.4-10.2MSt. Vincent Clay Hospital Comment on above:Order Comment: [facility] has implemented the eGFR calculation approach that does not have a coefficient for race that conforms to the NKF-ASN Task Force Recommendations.Performed By: #### [id number] ####[facility] [address] [address] Abbi Choudhary M.D. 36D0 475396Oodxizeb [Moles/Vol]102 mmol/DJtubxk25-685LchlftKing's Daughters Hospital and Health Services on above:Order Comment: [facility] has implemented the eGFR calculation approach that does not have a coefficient for race that conforms to the NKF-ASN Task Force Recommendations.Performed By: #### [id number] ####[facility] [address] [place], [place] [address] Abbi Choudhary M.D. [id number] [Mass/Vol]1.75 mg/dLHigh0.40-1.10[facility] on above:Order Comment: [facility] has implemented the eGFR calculation approach that does not have a coefficient for race that conforms to the NKF-ASN Task Force Recommendations.Performed By: #### [id number] ####[facility] [address] [place], [place] [address] Abbi Choudhary M.D. [id number] mL/min/1.73 m2Low >=60[facility] on above:Order Comment: [facility] has implemented the eGFR calculation approach that does not have a coefficient for race that conforms to the NKF-ASN Task Force Recommendations. Result Comment: Estimated GFR was calculated using the 2020 CKD-EPI creatinine equation.Performed By: #### [id number] ####[facility] [address] [address] Abbi Choudhary M.D. [id number] [Mass/Vol]237 mg/uIFkra92-03AjnwciIndiana University Health Methodist Hospital on above:Order Comment: [facility] has implemented the eGFR calculation approach that does not have a coefficient for race that conforms to the NKF-ASN Task Force Recommendations.Performed By: #### [id number] ####[facility] [address] [address] Abbi Choudhary M.D. [id number] (Bld) [Moles/Vol]23 mmol/LZwqjks86-22EnrxrhLogansport Memorial Hospital Comment on above:Order Comment: [facility] has implemented the eGFR calculation approach that does not have a coefficient for race that conforms to the NKF-ASN Task Force Recommendations.Performed By: #### [id number] ####[facility] [address] [address] Abbi Choudhary M.D. 36D0 [id number] [Moles/Vol]3.7 mmol/LNormal3.5-5.1MIndiana University Health [facility] Hospital on above:Order Comment: [facility] has implemented the eGFR calculation approach that does not have a coefficient for race that conforms to the NKF-ASN Task Force Recommendations.Performed By: #### [id number] ####[facility] [address] [address] Abbi Choudhary M.D. [id number] [Moles/Vol]136 mmol/IDsrxpo520-723EqvnmjKing's Daughters Hospital and Health Services on above:Order Comment: [facility] has implemented the eGFR calculation approach that does not have a coefficient for race that conforms to the NKF-ASN Task Force Recommendations.Performed By: #### [id number] ####[facility] [address] [address] Abbi Choudhary M.D. [id number] nitrogen [Mass/Vol] 26 mg/dLVeterans Affairs Medical Center8-25[facility] on above:Order Comment: [facility] has implemented the eGFR calculation approach that does not have a coefficient for race that conforms to the NKF-ASN Task Force Recommendations.Performed By: #### [id number] ####[facility] [address] [address] Abbi Choudhary M.D. [id number] nitrogen/Creatinine [Mass ratio]14.9 mg/tsKdmojp04.0-20.0[facility] HospitalComment on above:Order Comment: [facility] has implemented the eGFR calculation approach that does not have a coefficient for race that conforms to the NKF-ASN Task Force Recommendations.Performed By: #### [id number] ####[facility] [address] [address] Abbi Choudhary M.D. [id number] WITH AUTO DIFFERENTIALon 68-93-5762BHZZ NRBC0.0 %[facility] HospitalComment on above:Performed By: #### [id number] ####[facility] [address] [address] Abbi Choudhary M.D. [id number] NRBC ABS COUNT0.00 K/mcLNormal0.00-0.00 [facility] HospitalComment on above:Performed By: #### [id number] ####[facility] [address] [address] Abbi Choudhary M.D. [id number] ABSOLUTE COUNT0.05 K/mcLNormal0.00-0.30[facility] HospitalComment on above: Performed By: #### [id number] ####[facility] [address] [address] Abbi Choudhary M.D. [id number]/100 WBC (Bld)0.5 %[facility] HospitalComment on above:Performed By: #### [id number] ####[facility] [address] [address] Abbi Choudhary M.D. [id number] (Bld) [#/Vol] 0.19 10*3/uLNormal0.00-0.50[facility] HospitalComment on above:Performed By: #### [id number] ####[facility] [address] [address] Abbi Choudhary M.D. [id number]/100 WBC (Bld)2.1 %[facility] Comment on above:Performed By: #### [id number] ####[facility] [address] [address] Abbi Choudhary M.D. [id number] distribution width (RBC) [Ratio]12.6 %Uzoktz54.6-14.8[facility] HospitalComment on above: Performed By: #### [id number] ####[facility] [address] [address] Abbi Choudhary M.D. [id number] (Bld) [Volume fraction]33.5 %Low 36.0-46.0[facility] HospitalComment on above:Performed By: #### [id number] ####[facility] [address] [address] Abbi Choudhary M.D. 36 [id number] (Bld) [Mass/Vol]11.6 g/dLLow12.0-16.0[facility] Comment on above:Performed By: #### [id number] ####[facility] [address] [address] Abbi Choudhary M.D. [id number] ABSOLUTE0.07 K/mcLNormal 0.00-0.30[facility] HospitalComment on above:Performed By: #### [id number] ####[facility] [address] [address] Abbi Choudhary M.D. 36 [id number] PERCENT0.80 %[facility] HospitalComment on above:Result Comment: The IG parameter is the percentage of metamyelocytes, myelocytes and promyelocytes.An immature granulocyte count (IG) of 1% or more suggests the possibility of infection, an IG countof 3% is very likely related to an infection.Performed By: #### [id number] ####[facility] [address] [address] Abbi Choudhary M.D. [id number] (Bld) [#/Vol]2.26 10*3/uLNormal0.90-4.00[facility] HospitalComment on above:Performed By: #### [id number] ####[facility] [address] [address] Abbi Choudhary M.D. [id number]/100 WBC (Bld)24.4 %[facility] HospitalComment on above:Performed By: #### [id number] ####[facility] [address] [address] Abbi Choudhary M.D. [id number] (RBC) [Entitic mass]30.4 pgNormal 26.0-34.0[facility] HospitalComment on above:Performed By: #### [id number] ####[facility] [address] [address] Abbi Choudhary M.D. 36 [id number] (RBC) [Entitic vol]87.7 zUAvuvey97.0-100.0[facility] Comment on above:Performed By: #### [id number] ####[facility] [address] [address] Abbi Choudhary M.D. [id number] CORPUSCULAR HEMOGLOBIN CONC34.6 g/aGQalyou03.0-37.0[facility] HospitalComment on above:Performed By: #### [id number] ####[facility] [address] [address] Abbi Cohudhary M.D. [id number] (Bld) [#/Vol]0.54 10*3/uLNormal0.30-0.90[facility] HospitalComment on above:Performed By: #### [id number] ####[facility] [address] [address] Abbi Choudhary M.D. [id number]/100 WBC (Bld) 5.8 %NormalJohnson Memorial Hospital HospitalComment on above:Performed By: #### [id number] ####[facility] [address] [address] Abbi Choudhary M.D. 36 [id number] ABSOLUTE COUNT6.15 K/mcLNormal1.70-7.00[facility] HospitalComment on above:Performed By: #### [id number] ####[facility] [address] [address] Abbi Choudhary M.D. [id number]/100 WBC (Bld) 66.4 %NormalLogansport Memorial HospitalComment on above:Performed By: #### [id number] ####[facility] [address] [address] Abbi Choudhary M.D. 36 [id number] mean volume (Bld) [Entitic vol]9.2 fLLow9.4-12.4[facility] HospitalComment on above:Performed By: #### [id number] ####[facility] [address] [address] Abbi Choudhary M.D. [id number] (Bld) [#/Vol] 290 10*3/tROqvpeh990-488MjehraLogansport Memorial HospitalComment on above:Performed By: #### [id number] ####[facility] [address] [address] Abbi Choudhary M.D. [id number] (Bld) [#/Vol]3.82 10*6/uLLow4.00-5.20[facility] Comment on above:Performed By: #### [id number] ####[facility] [address] [address] Abbi Choudhary M.D. [id number] (Bld) [#/Vol]9.26 10*3/uLNormal 4.50-11.00[facility] HospitalComment on above:Performed By: #### [id number] ####[facility] [address] [address] Abbi Choudhary M.D. 36 [id number] Prov Noteon 94-66-6493CT Prov NoteNoIndiana [facility] TROPONIN X 2 (NOW AND REPEAT IN 2 HOURS)on 92-67-2137BYFBKAEA TROPONIN T NG/L24 ng/LOff scale high<=14[facility] HospitalComment on above:Performed By: #### [id number] ####[facility] [address] [place], [place] [address] Abbi Choudhary M.D. [id number] T INTERPRETATIONPossible acute cardiac injury.[facility] HospitalComment on above:Performed By: #### [id number] ####[facility] [address] [place], [place] [address] Abbi Choudhary M.D. [id number] ANKLE LEFT 3+ VIEWS (STANDARD)on 00-04-0784EW ANKLE LEFT 3+ VIEWS (STANDARD)[facility] HospitalComment on above:Order Comment: Injury/Trauma or Illness?:Injury/TraumaHow long have you had these symptoms (acute/ch ronic)?:AcuteReason for exam?:ankle painHistory of cancer?:uSurgeries, chemotherapy, or radiation?:pacemakerType of Exam?:InitialMechanism of injury?:fallXR CHEST PA/APon 00-11-0513MP CHEST PA/APNoIndiana [facility] Health Blackford HospitalComment on above:Order Comment: Injury/Trauma or Illness?:Illness/OtherHow long have you had these symptoms (acute/ch ronic)?:AcuteReason for exam?:chest painHistory of cancer?:uSurgeries, chemotherapy, or radiation?:pacemakerType of Exam?:InitialAdditional signs and symptoms?:naXR KNEE LEFT 2 VIEWS (STANDARD)on 41-50-4253KL KNEE LEFT 2 VIEWS (STANDARD)[facility] HospitalComment on above:Order Comment: Injury/Trauma or Illness?:Injury/TraumaHow long have you had these symptoms (acute/chronic)?:AcuteReason for exam?:knee painHistory of cancer?:uSurgeries, chemotherapy, or radiation?:pacemakerType of Exam?:InitialMechanism of injury?:fallUrgent Care Clinic Visiton 70-60-8533[facility] [place] [address] - [address] JEAN BAPTISTE 1975 (49 F) [id number] Verena Kuhn [facility] Report #: [id number] (Signed) PCP: No Doctor Urgent Care Clinic [...] coming to . Reports cut finger on inspector semiconductor wafer. Associated Symptoms: bleeding, controlled Date of Onset (approx): 08/29/24 Time of Onset (approx): 17:[address] of Occurrence: home Context: accidental and sharp object use Improves With: applying pressure Worsens With: movement Treatment PATIENT RESOURCE SPECIALIST: none Provider HPI Details Patient presents today [...] no runny nose Card (more content not included)...[facility] (INCLUDES DIFF/PLT)on 59-73-0965Mywkuhrtc (Bld) [#/Vol]0.093 10*3/uLNormal0-200Quest DiagnosticsComment on above:Performed By: #### 02396, 17462, 866, 899, 496, 6399, 04862 #### [facility] [address], [address] [place] [address] Coatings Inspector: Dean Maddox MDBasophils/100 WBC (Bld)0.8 %NormalQuest DiagnosticsComment on above:Performed By: #### 83719, 38147, 866, 899, 496, 6399, 00600 #### [facility] [place] [address] [address] , [address] [place] [address] Coatings Inspector: Dean Maddox MDEosinophils (Bld) [#/Vol]0.22 10*3/uLNormal 15-500Quest DiagnosticsComment on above:Performed By: #### 36163, 57140, 866, 899, 496, 6399, 70857 #### [facility] [place] [address] [address] , [address] [place] [address] Coatings Inspector: Dean Maddox MDEosinophils/100 WBC (Bld)1.9 %NormalQuest DiagnosticsComment on above:Performed By: #### 23472, 34464, 866, 899, 496, 6399, 82184 #### [facility] [place] [address] Coatings Inspector: Dean Maddox MDErythrocyte distribution width (RBC) [Ratio] 12.8 %Yrujtx82.0-15.0Quest DiagnosticsComment on above:Performed By: #### 44363, 39089, 866, 899, 496, 6399, 42900 #### [facility] [place] [address] Coatings Inspector: Dean Maddox MDHematocrit (Bld) [Volume fraction]41.1 %Normal 35.0-45.0Quest DiagnosticsComment on above:Performed By: #### 55455, 55493, 866, 899, 496, 6399, 41229 #### [facility] [place] [address] Coatings Inspector: Dean Maddox MDHemoglobin (Bld) [Mass/Vol]13.8 g/dLNormal 11.7-15.5Quest DiagnosticsComment on above:Performed By: #### 22134, 18289, 866, 899, 496, 6399, 70987 #### [facility] [place] [address] Coatings Inspector: Dean Maddox MDLymphocytes (Bld) [#/Vol]2.401 10*3/uLNormal 850-3900Quest DiagnosticsComment on above:Performed By: #### 06996, 71606, 866, 899, 496, 6399, 40758 #### [facility] [place] [address] Coatings Inspector: Dean Maddox MDLymphocytes/100 WBC (Bld)20.7 %NormalQuest DiagnosticsComment on above:Performed By: #### 13217, 56234, 866, 899, 496, 6399, 11906 #### [facility] of [address], [address] [place] [address] Coatings Inspector: Dean JUAREZCH (RBC) [Entitic mass]30.1 bcEdrwzn36.0-33.0 Quest DiagnosticsComment on above:Performed By: #### 47255, 43679, 866, 899, 496, 6399, 74390 #### [facility] of [address], [address] [place] [address] Coatings Inspector: Dean JUAREZCHC (RBC) [Mass/Vol]33.6 g/dUAlwabv06.0-36.0 [facility] DiagnosticsComment on above:Result Comment: For adults, a slight decrease in the calculated MCHC value (in the range of 30 to 32 g/dL) is most likely not clinically significant; however, it should be interpreted with caution in correlation with other red cell parameters and the patient's clinical condition.Performed By: #### 59696, 00721, 866, 899, 496, 6399, 35997 #### [facility] of [place] [address] Coatings Inspector: Dean JUAREZCV (RBC) [Entitic vol]89.7 hDZmrgys19.0-100.0 [facility] DiagnosticsComment on above:Performed By: #### 60474, 77106, 866, 899, 496, 6399, 66992 #### [facility] of [address], [address] [place], [place] [address] Coatings Inspector: Dean Maddox MDMonocytes (Bld) [#/Vol]0.661 10*3/uLNormal 200-950Quest DiagnosticsComment on above:Performed By: #### 35954, 45327, 866, 899, 496, 6399, 13938 #### [facility] of [address] [place] [address] Coatings Inspector: Dean Maddox MDMonocytes/100 WBC (Bld)5.7 %NormalQuest DiagnosticsComment on above:Performed By: #### 77750, 78169, 866, 899, 496, 6399, 88848 #### [facility] of [place] [address], [address] [place] [address] Coatings Inspector: Dean Maddox MDNeutrophils (Bld) [#/Vol]8.224 10*3/uLHigh 1500-7800Quest DiagnosticsComment on above:Performed By: #### 95358, 70742, 866, 899, 496, 6399, 03983 #### [facility] of [facility] [address] , [address] [place] [address] Coatings Inspector: Dean Maddox MDNeutrophils/100 WBC (Bld)70.9 %NormalQuest DiagnosticsComment on above:Performed By: #### 31757, 12168, 866, 899, 496, 6399, 31466 #### [facility] of [place] [address], [address] [place] [address] Coatings Inspector: Dean Maddox MDPlatelet mean volume (Bld) [Entitic vol]8.9 fL Normal7.5-12.5Quest DiagnosticsComment on above:Performed By: #### 68665, 80723, 866, 899, 496, 6399, 75392 #### [facility] of [facility] [address], [address] [place] [address] Coatings Inspector: Dean Maddox MDPlatelets (Bld) [#/Vol]404 10*3/pWSqfw282-972 Quest DiagnosticsComment on above:Performed By: #### 47415, 38742, 866, 899, 496, 6399, 47715 #### [facility] of [place] [address], [address] [place] [address] Coatings Inspector: Dean Maddox MDRBC (Bld) [#/Vol]4.58 10*6/uLNormal3.80-5.10 [facility] DiagnosticsComment on above:Performed By: #### 42043, 03273, 866, 899, 496, 6399, 67215 #### [facility] [address] [facility], [address] [address] Coatings Inspector: Dean Maddox MDBC (Bld) [#/Vol]11.6 10*3/uLHigh3.8-10.8Quest DiagnosticsComment on above:Performed By: #### 32883, 13795, 866, 899, 496, 6399, 44563 #### [facility] [address] [facility], [address] [place] [address] Coatings Inspector: Dean Maddox [facility] Auto Differentialon 47-74-2562Mwiqpdcmm (Bld) [#/Vol]93 10*3/uLOhioHealthBasophils/100 WBC (Bld)0.8 %[facility] Eosinophils (Bld) [#/Vol]220 10*3/uLOhioHealthEosinophils/100 WBC (Bld)1.9 % [facility] HospitalErythrocyte distribution width (RBC) [Ratio]12.8 %11.0 - 15.0 % [facility] HospitalHematocrit (Bld) [Volume fraction]41.1 %35.0 - 45.0 %[facility] Hemoglobin (Bld) [Mass/Vol]13.8 g/dL11.7 - 15.5 g/dLOhioHealthInterpretation and review of laboratory resultsAbnormalOhioHealthLymphocytes (Bld) [#/Vol]2401 10*3/uLOhioHealthLymphocytes/100 WBC (Bld)20.7 %[facility] HospitalMCH (RBC) [Entitic mass]30.1 pg27.0 - 33.0 pgOhioHealthMCHC [...] (Bld)5.7 %OhioHealthNeutrophils (Bld) [#/Vol]8224 10*3/uLHighOhioHealthNeutrophils/100 WBC (Bld)70.9 %[facility] Platelet mean volume (Bld) [Entitic vol]8.9 fL7.5 - 12.5 fLOhioHealthPlatelets (Bld) [#/Vol]404 10*3/uLHighOhioHealthRBC (Bld) [#/Vol]4.58 10*6/uLOhioHealthWBC (Bld) [#/Vol]11.6 10*3/uLHighOhioHealthOhioHealthCOMPREHENSIVE METABOLIC PANEL W/ANION GAPon 92-41-8883Nlipvrq [Mass/Vol]4.1 g/dLNormal3.6-5.1[facility] Comment on above:Performed By: #### 48432, 86614, 866, 899, 496, 6399, 57489 #### [facility] [address] Coatings Inspector: Dean Maddox MDALP [Catalytic activity/Vol]98 U/HMzysey35-783 [facility] DiagnosticsComment on above:Performed By: #### 11840, 76970, 866, 899, 496, 6399, 43221 #### [facility] [address] Coatings Inspector: Dean Maddox MDALT [Catalytic activity/Vol]11 U/LNormal6-29 [facility] DiagnosticsComment on above:Performed By: #### 00181, 91806, 866, 899, 496, 6399, 45394 #### [facility] [address] [place] [address] Coatings Inspector: Dean Maddox MDAST [Catalytic activity/Vol]10 U/ODsynqa06-27 [facility] DiagnosticsComment on above:Performed By: #### 68731, 36052, 866, 899, 496, 6399, 71354 #### [facility] of [place] [address] Coatings Inspector: Dean Maddox MDBilirubin [Mass/Vol]0.4 mg/dLNormal0.2-1.2 [facility] DiagnosticsComment on above:Performed By: #### 98450, 03123, 866, 899, 496, 6399, 87651 #### [facility] of [place] [address] Coatings Inspector: Dean Maddox MDCalcium [Mass/Vol]9.6 mg/dLNormal8.6-10.2Quest DiagnosticsComment on above:Performed By: #### 52266, 98653, 866, 899, 496, 6399, 75794 #### [facility] of [place] [address] Coatings Inspector: Dean Maddox MDChloride [Moles/Vol]105 mmol/JJjhtbs81-536 [facility] DiagnosticsComment on above:Performed By: #### 65530, 83357, 866, 899, 496, 6399, 47249 #### [facility] of [place] [address] Coatings Inspector: Dean Maddox MDCO2 [Moles/Vol]20 mmol/DBftxll54-43Iykym DiagnosticsComment on above:Performed By: #### 16303, 76565, 866, 899, 496, 6399, 81745 #### [facility] of [place] [address] Coatings Inspector: Dean Maddox MDCreatinine [Mass/Vol]1.30 mg/dLHigh0.50-0.99 [facility] DiagnosticsComment on above:Performed By: #### 73607, 94982, 866, 899, 496, 6399, 59809 #### [facility] [address], [address] [place] [address] Coatings Inspector: Dean Maddox MDELECTROLYTE JSIANYM17 mmol/L (calc)Normal7-17 [facility] DiagnosticsComment on above:Performed By: #### 64544, 66969, 866, 899, 496, 6399, 02012 #### [facility] [address], [address] [place] [address] Coatings Inspector: Dean Maddox MDGFR/1.73 sq M.predicted among non-blacks MDRD (S/P/Bld) [Vol rate/Area]51 mL/min/{1.73_m2}Low> OR = 60Quest DiagnosticsComment on above:Performed By: #### 73518, 59664, 866, 899, 496, 6399, 34925 #### [facility] [address], [address] [place] [address] Coatings Inspector: Dean Maddox MDGlucose [Mass/Vol]214 mg/dKWzwg19-83Vlctx DiagnosticsComment on above:Result Comment: Fasting reference interval For someone without known diabetes, a glucose value >125 mg/dL indicates that they may have diabetes and this should be confirmed with a follow-up test.Performed By: #### 05429, 58805, 866, 899, 496, 6399, 64542 #### [facility] [address], [address] [place] [address] Coatings Inspector: Dean Maddox MDPotassium [Moles/Vol]4.9 mmol/LNormal3.5-5.3 [facility] DiagnosticsComment on above:Performed By: #### 69234, 80448, 866, 899, 496, 6399, 78844 #### [facility] [address], [address] [place] [address] Coatings Inspector: Dean Maddox MDProtein [Mass/Vol]7.0 g/dLNormal6.1-8.1Quest DiagnosticsComment on above:Performed By: #### 27333, 18119, 866, 899, 496, 6399, 63682 #### [facility] [address], [address] [place] [address] Coatings Inspector: Dean Maddox MDSodium [Moles/Vol]136 mmol/PIridtu334-964Mzivx DiagnosticsComment on above:Performed By: #### 63577, 42087, 866, 899, 496, 6399, 43181 #### [facility] [address], [address] [place] [address] Coatings Inspector: Dean Maddox MDUrea nitrogen [Mass/Vol]30 mg/dLHigh7-25Quest DiagnosticsComment on above:Performed By: #### 33360, 63835, 866, 899, 496, 6399, 51758 #### [facility] [address], [address] [place] [address] Coatings Inspector: Dean Maddox MDComprehensive metabolic 2000 panelon 66-93-9868Jyijkex [Mass/Vol]4.1 g/dL3.6 - 5.1 g/dLOhioHealthALP [Catalytic activity/Vol]98 [...] (S/P/Bld) [Vol rate/Area]51 mL/min/{1.73_m2}Low> OR = 60 mL/min/1.48l2KqejVtylxeKubevcm [Mass/Vol]214 mg/dL High65 - 99 mg/dLOhioHealthComment on above: Fasting reference interval For someone without known diabetes, a glucose value >125 mg/dL indicates that they may have diabetes and this should be confirmed with a follow-up test. Potassium [Moles/Vol]4.9 mmol/L3.5 - 5.3 mmol/LOhioHealthProtein [Mass/Vol]7 g/dL6.1 - 8.1 g/dLOhioHealthSodium [Moles/Vol]136 mmol/L135 - 146 mmol/L OhioHealthUrea nitrogen [Mass/Vol]30 mg/dLHigh7 - 25 mg/dLOhioHealthHEMOGLOBIN A1con 03-83-8362NNDBFTWKEK A1c10.6 % of total HgbHigh<5.7[facility] Comment [...] diagnosis of diabetes for children.Performed By: #### 04161, 59060, 866, 899, 496, 6399, 49808 #### [facility] [address], [address] [place] [address] Coatings Inspector: Dean Whyte AB W/REFL TO HCV RNA, QN, PCRon 82-81-3273HBYCKSDFZ C ANTIBODYNormalQuest DiagnosticsComment on above:Performed By: #### 49737, 02657, 866, 899, 496, 6399, 32037 #### [facility] [address], [address] [place] [address] Coatings Inspector: Dean Maddox MDHIV 1/2 ANTIGEN/ANTIBODY,FOURTH GENERATION W/RFLon 39-36-5561FWD AG/AB, 4TH GENNormalQuest DiagnosticsComment on above: Performed By: #### 98410, 07582, 866, 899, 496, 6399, 10654 #### [facility] [address], [address] [place] [address] Coatings Inspector: Dean Maddox MDHIV Antibody (HIV1/HIV2)on 41-31-8483GBL 1+2 Ab+HIV1 p24 Ag IA HkUey-UkyonyjzFXQ-HKHEQUTHKqvdUoejzvTbefvdu on above:HIV-1 antigen and HIV-1/HIV-2 antibodies were [...] purpose. For additional information please refer to http://education.ralali.[employer]/faq/ZQZ555 (This link is being provided for informational/ educational purposes only.) The performance of this assay has not been clinically validated in patients less than 2 years old. HbA1c (Bld) [Mass fraction]on 98-57-7916Xjtrgkzeokihql and review of laboratory resultsAbnormalOhioHealthOhioHealthHemoglobin A1con 14-99-2429CrT7h (Bld) [Mass fraction]10.6 %HighNINFOhioHealthComment on above:For someone [...] Ab with Reflex to HCV Virus Quantitationon 15-92-7033GPT Ab IA Ql Hyg-OgjdsuwePEB-GLEXTPITGtxfNmloxwIktxbis on above: HCV antibody was non-reactive. There is no laboratory evidence of HCV infection. In most cases, no further action is required. However, if recent HCV exposure is suspected, a test for HCV RNA (test code 75393) is suggested. For additional information please refer to http://Diagnosia.Litepoint/faq/HEJ86g4 (This link is being provided for informational/ educational purposes only.) LIPID PANEL WITH REFLEX TO DIRECT LDLon 68-99-7810Wtwstarbsaq [Mass/Vol]232 mg/dLHigh<200Quest DiagnosticsComment on above:Performed By: #### 45497, 86239, 866, 899, 496, 6399, 00887 #### [facility] [address], [address] [place], [place] [address] Coatings Inspector: Dean Maddox MDCholesterol in HDL [Mass/Vol]58 mg/dLNormal> OR = 50Quest DiagnosticsComment on above:Performed By: #### 58941, 01632, 866, 899, 496, 6399, 96652 #### [facility] [address], [address] [place], [place] [address] Coatings Inspector: Dean Maddox MDCholesterol in LDL [Mass/Vol]144 mg/dLHigh [...] LDL-C. Antoine GREGG et al. CHOLO. 2013;310(19): 3276-4776 (http://education.Moy Univer.[employer]/faq/LIG362)Performed By: #### 26025, 38639, 866, 899, 496, 6399, 21242 #### [facility] [address], [address] [place] [address] Coatings Inspector: Dean GUARDADOholesterothuy.total/Cholesterol in HDL [Mass ratio]4.0 {ratio}Normal<5.0Quest DiagnosticsComment on above:Performed By: #### 39431, 44431, 866, 899, 496, 6399, 71679 #### [facility] [address], [address] [place] [address] Coatings Inspector: Dean BOLTON HDL YSOKRXBONEY199 mg/dL (calc)High<130 Quest DiagnosticsComment on above:Result Comment: For patients with diabetes plus 1 major ASCVD risk factor, treating to a non-HDL-C goal of <100 mg/dL (LDL-C of <70 mg/dL) is considered a therapeutic option.Performed By: #### 94041, 32043, 866, 899, 496, 6399, 67924 #### [facility] [place] [address] Coatings Inspector: Dean Maddox MDTriglyceride [Mass/Vol]167 mg/dLHigh<150Quest DiagnosticsComment on above:Performed By: #### 71559, 52525, 866, 899, 496, 6399, 88121 #### [facility] [address], [address] [place] [address] Coatings Inspector: Dean Maddox MDLipid 1996 panelon 21-84-0857Tahitykhnwa [Mass/Vol]232 mg/dLHighNINF - 200 mg/dLOhioHealthCholesterol in HDL [...] LDL-C. Antoine GREGG et al. CHOLO. 2013;310(19): 9698-1063 (http://education.Impulsonic/faq/BAA805) Cholesterol non HDL [Mass/Vol]174 mg/dLHighNINFOhioHealthComment on above:For patients with diabetes plus 1 major ASCVD risk factor, treating to a non-HDL-C goal of <100 mg/dL (LDL-C of <70 mg/dL) is considered a therapeutic option. Cholesterol.total/Cholesterol in HDL [Mass ratio]4 {ratio}NINFOhioHealth Triglyceride [Mass/Vol]167 mg/dLHighNINF - 150 mg/dLOhioHealthNo Panel Information 21-65-8805UorsNxvseuLldkzqcrzuwqpw and review of laboratory resultsAbnormalOhioHealthOhioHealthOhioHealthT4, [facility] 75-42-8878Jwme T4 [Mass/Vol]0.9 ng/dLNormal0.8-1.8Quest DiagnosticsComment on above:Performed By: #### 07674, 43083, 866, 899, 496, 6399, 43515 #### [place] [address] Coatings Inspector: Dean Maddox MDT4, [facility] 67-74-9901Jwef T4 [Mass/Vol]0.9 ng/dL0.8 - 1.8 ng/dLKettering Health Dayton 78-92-6183CTT Qn3.54 m[IU]/LNormalQuest DiagnosticsComment on above:Result Comment: Reference Range > or = 20 Years 0.40-4.50 Ranges First trimester 0.26-2.66 Second trimester 0.55-2.73 Third trimester 0.43-2.91Performed By: #### 43604, 69537, 866, 899, 496, 6399, 79595 #### [facility] [place] [address] Coatings Inspector: Dean Maddox MDMIL[facility]ARY HEALTH SYSTEM DL <= 0.005 mIU/L Qnon 81-20-2287WGG Qn 3.54 m[IU]/LmIU/LOhioHealthComment on above:Reference Range > or = 20 Years 0.40-4.50 Ranges First trimester 0.26-2.66 Second trimester 0.55-2.73 Third trimester 0.43-2.91 XR KNEES BILATERAL 2 VIEWS EACH (STANDARD)on 71-19-4031CQ KNEES BILATERAL 2 VIEWS EACH (STANDARD)[facility] HospitalComment on above:Order Comment: Injury/Trauma or Illness?:Illness/OtherHow long have you had these symptoms (acute/chronic)?:UnknownReason for exam?:Bilateral knee painHistory of cancer?:uSurgeries, chemotherapy, or radiation?:pacemakerType of Exam?:UnknownAdditional signs and symptoms?:noneED Prov Noteon 30-98-0026AL Prov NoteNoInd[facility] Health [facility] HospitalXR HAND LEFT 3+ VIEWS (STANDARD)on 05-23-2024 XR HAND LEFT 3+ VIEWS (STANDARD)[facility] HospitalComment on above: Order Comment: Injury/Trauma or Illness?:Illness/OtherHow long have you had these symptoms (acute/chronic)?:AcuteReason for exam?:Lt hand pain with swellingHistory of cancer?:uSurgeries, chemotherapy, or radiation?:pacemakerType of Exam?:InitialAdditional signs and symptoms?:Lt hand pain with swellingCBCon 06-48-3762DZCH NRBC0.0 %[facility] HospitalComment on above:Performed By: #### 45041 ####[facility] [address] [place], [place] [address] Abbi Choudhary M.D. [id number] NRBC ABS COUNT0.00 K/mcLNormal0.00-0.00[facility] HospitalComment on above:Performed By: #### 19950 ####[facility] [address] [place], [place] [address] Abbi Choudhary M.D. [id number] distribution width (RBC) [Ratio]13.4 %Yupcia34.6-14.8[facility] HospitalComment on above: Performed By: #### 49758 ####[facility] [address] [place] [address] Abbi Choudhary M.D. [id number] (Bld) [Volume fraction]29.3 %Low36.0-46.0 [facility] HospitalComment on above:Performed By: #### 39220 ####[facility] [address] [place] [address] Abbi Choudhary M.D. [id number] (Bld) [Mass/Vol]9.6 g/dLLow12.0-16.0[facility] HospitalComment on above: Performed By: #### 94101 ####[facility] [address] [place] [address] Abbi Choudhary M.D. [id number] (RBC) [Entitic mass]31.0 lsVrevhu10.0-34.0[facility] HospitalComment on above:Performed By: #### 42439 ####[facility] [address] [place] [address] Abbi Choudhary M.D. [id number] (RBC) [Entitic vol]94.5 jBYahejq64.0-100.0[facility] HospitalComment on above: Performed By: #### 80533 ####[facility] [address] [place] [address] Abbi Choudhary M.D. [id number] CORPUSCULAR HEMOGLOBIN CONC32.8 g/dLNormal 31.0-37.0[facility] HospitalComment on above:Performed By: #### [id number] ####[facility] [address] [address] Abbi Choudhary M.D. 36D0 472001Czbykrfe mean volume (Bld) [Entitic vol]9.7 fLNormal9.4-12.4Log[facility]port Memorial HospitalComment on above:Performed By: #### [id number] ####[facility] [address] [address] Abbi Choudhary M.D. [id number] (Bld) [#/Vol]289 10*3/wSIfdsyq352-835BcadnzLogansport Memorial HospitalComment on above:Performed By: #### [id number] ####[facility] [address] [place], [place] [address] Abbi Choudhary M.D. [id number] (Bld) [#/Vol]3.10 10*6/uLLow4.00-5.20[facility] Comment on above:Performed By: #### [id number] ####[facility] [address] [address] Abbi Choudhary M.D. [id number] (Bld) [#/Vol]6.78 10*3/uLNormal 4.50-11.00Logansport Memorial HospitalComment on above:Performed By: #### [id number] ####[facility] [address] [address] Abbi Choudhary M.D. 36D0 [id number] panel Auto (Bld)on 59-53-8045Ljnafroxtxk distribution width (RBC) [Entitic vol]13.4 %11.6 - [...] [#/Vol] 3.1 10*6/uLLowOhioHealthWBC (Bld) [#/Vol]6.78 10*3/uLOhioHealthOhioHealthDisch Summon 78-44-3428Kjwyj [facility] Health ServicesGlucose (Bld) [Mass/Vol] on 66-04-8156Khxvdfo [Mass/Vol]240 mg/iTOysa99 - 99 mg/dLOhioAkron Children'S Hospital Interpretation and review of laboratory resultsAbnoSelect Medical Specialty Hospital - [facility]on Glucose [Mass/Vol]340 mg/iIMoul26 - 99 mg/dLGaioHealthInterpretation and review of laboratory resultsAbnoSelect Medical Specialty Hospital - CantonPOC GLUCOSE - [facility]ERSon 04-29-2024 Glucose [Mass/Vol]240 mg/vYQxmh75-07QygknhSt. Vincent Clay HospitalComment on above: Performed By: #### [id number] #### LAB [address] [address] Abbi Choudhary M.D. [id number] [Mass/Vol]340 mg/kTLphd42-31WdbzemSt. Vincent Clay HospitalComment on above:Performed By: #### [id number] ####[facility] [address] [address] Abbi Choudhary M.D. [id number] FUNCTION PANELon 22-74-3996Hnbeawc [Mass/Vol]3.2 g/dLNormal3.2-5.2MSt. Vincent Clay HospitalComment on above:Order Comment: [facility] has implemented the eGFR calculation approach that does not have a coefficient for race that conforms to the NKF-ASN Task Force Recommendations.Performed By: #### [id number] ####[facility] [address] [address] Abbi Choudhary M.D. [id number] gap [Moles/Vol]15 mmol/ZRsowej02-05TburtgLogansport Memorial HospitalComment on above:Order Comment: [facility] has implemented the eGFR calculation approach that does not have a coefficient for race that conforms to the NKF-ASN Task Force Recommendations.Performed By: #### [id number] ####[facility] [address] [place], [place] [address] Abbi Choudhary M.D. [id number] [Mass/Vol]8.5 mg/dLNormal8.4-10.2MIndiana University Health Methodist Hospital on above:Order Comment: [facility] has implemented the eGFR calculation approach that does not have a coefficient for race that conforms to the NKF-ASN Task Force Recommendations.Performed By: #### [id number] ####[facility] [address] [place], [place] [address] Abbi Choudhary M.D. [id number] [Moles/Vol]104 mmol/L Ipwxpx70-791ZtfbnvKing's Daughters Hospital and Health Services on above:Order Comment: [facility] has implemented the eGFR calculation approach that does not have a coefficient for race that conforms to the NKF-ASN Task Force Recommendations.Performed By: #### [id number] ####[facility] [address] [place], [place] [address] Abbi Choudhary M.D. [id number] [Mass/Vol]1.72 mg/dLHigh 0.40-1.10[facility] on above:Order Comment: [facility] has implemented the eGFR calculation approach that does not have a coefficient for race that conforms to the NKF-ASN Task Force Recommendations.Performed By: #### [id number] ####[facility] [address] [place], [place] [address] Abbi Choudhary M.D. [id number] mL/min/1.73 m2Low>=60[facility] on above:Order Comment: [facility] has implemented the eGFR calculation approach that does not have a coefficient for race that conforms to the NKF-ASN Task Force Recommendations.Result Comment: Estimated GFR was calculated using the 2020 CKD-EPI creatinine equation. Performed By: #### [id number] ####[facility] [address] [place], [place] [address] Abbi Choudhary M.D. [id number] [Mass/Vol]358 mg/sTQtii57-30ZidhyqIndiana University Health Methodist Hospital on above:Order Comment: [facility] has implemented the eGFR calculation approach that does not have a coefficient for race that conforms to the NKF-ASN Task Force Recommendations.Performed By: #### [id number] ####[facility] [address] [address] Abbi Choudhary M.D. [id number] (Bld) [Moles/Vol]23 mmol/BUmbuvh04-00LnvlmtLogansport Memorial Hospital Comment on above:Order Comment: [facility] has implemented the eGFR calculation approach that does not have a coefficient for race that conforms to the NKF-ASN Task Force Recommendations.Performed By: #### [id number] #### LAB [address] [address] Abbi Choudhary M.D. 36D0 527131Lwvdzzqow [Mass/Vol]4.0 mg/dLNormal2.7-4.5[facility] on above:Order Comment: [facility] has implemented the eGFR calculation approach that does not have a coefficient for race that conforms to the NKF-ASN Task Force Recommendations.Performed By: #### [id number] ####[facility] [address] [address] Abbi Choudhary M.D. [id number] [Moles/Vol]4.5 mmol/LNormal3.5-5.1MIndiana University Health Methodist Hospital on above:Order Comment: [facility] has implemented the eGFR calculation approach that does not have a coefficient for race that conforms to the NKF-ASN Task Force Recommendations.Performed By: #### [id number] ####[facility] [address] [address] Abbi Choudhary M.D. [id number] [Moles/Vol]137 mmol/IVujzra771-646GuucimKing's Daughters Hospital and Health Services on above:Order Comment: [facility] has implemented the eGFR calculation approach that does not have a coefficient for race that conforms to the NKF-ASN Task Force Recommendations.Performed By: #### [id number] ####[facility] [address] [address] Abbi Choudhary M.D. [id number] nitrogen [Mass/Vol]30 mg/dLHigh8-25Logansport Memorial HospitalComment on above:Order Comment: [facility] has implemented the eGFR calculation approach that does not have a coefficient for race that conforms to the NKF-ASN Task Force Recommendations.Performed By: #### [id number] ####[facility] [address] [place], [place] [address] Abbi Choudhary M.D. [id number] nitrogen/Creatinine [Mass ratio]17.4 mg/nrJkjley39.0-20.0Log[facility]port Memorial HospitalComcovenant medical center on above:Order Comment: [facility] has implemented the eGFR calculation approach that does not have a coefficient for race that conforms to the NKF-ASN Task Force Recommendations.Performed By: #### [id number] ####[facility] [address] [place], [place] [address] Abbi Choudhary M.D. [id number] function 2000 panel on 89-94-1850Lsvyntw [Mass/Vol]3.2 g/dL3.2 - 5.2 g/dLOhioHealthAnion gap [Moles/Vol]15 mmol/L10 - 20 mmol/LOhioHealthCalcium [Mass/Vol]8.5 mg/dL8.4 - 10.2 mg/dLOhioHealthChloride [Moles/Vol]104 mmol/L98 - 108 mmol/LOhioHealth Creatinine [Mass/Vol]1.72 mg/dLHigh0.40 - 1.10 mg/dLOhioHealthGFR/1.73 sq M.predicted CKD-EPI (S/P/Bld) [Vol rate/Area]37Low- PINFOhioHealthComment on above:Estimated GFR was calculated using the 2020 CKD-EPI creatinine equation. Glucose [Mass/Vol]358 mg/yJRtgy91 - 99 mg/dLOhioHealthHCO3 [Moles/Vol]23 mmol/L 21 - 32 mmol/LOhioHealthInterpretation and review of laboratory resultsAbnormal OhioHealthPhosphate [Mass/Vol]4 mg/dL2.7 - 4.5 mg/dLOhioHealthPotassium [Moles/Vol]4.5 mmol/L3.5 - 5.1 mmol/LOhioHealthSodium [Moles/Vol]137 mmol/L135 - 145 mmol/LOhioHealthUrea nitrogen [Mass/Vol]30 mg/dLHigh8 - 25 mg/dLOhioAkron Children'S Hospital Urea nitrogen/Creatinine [Mass ratio]17.4 mg/mg10.0 - 20.0OhioPremier [facility] has implemented the eGFR calculation approach that does not have a coefficient for race that conforms to the NKF-ASN Task Force Recommendations.[facility] 04-95-7122CZEL NRBC0.0 %NormalLogansport Memorial HospitalComment on above:Performed By: #### [id number] ####[facility] [address] [address] Abbi Choudhary M.D. [id number] NRBC ABS COUNT0.00 K/mcLNormal0.00-0.00Log[facility]port Memorial HospitalComment on above:Performed By: #### [id number] ####[facility] [address] [place], [place] [address] Abbi Choudhary M.D. [id number] distribution width (RBC) [Ratio]13.2 %Ngkjli91.6-14.8 [facility] HospitalComment on above:Performed By: #### [id number] ####[facility] [address] [address] Abbi Choudhary M.D. [id number] (Bld) [Volume fraction]27.7 %Low36.0-46.0Log[facility]port Memorial HospitalComment on above:Performed By: #### [id number] ####[facility] [address] [place], [place] [address] Abbi Choudhary M.D. [id number] (Bld) [Mass/Vol]9.4 g/dLLow12.0-16.0 [facility] Countyment on above:Performed By: #### [id number] ####[facility] [address] [address] Abbi Choudhary M.D. [id number] (RBC) [Entitic mass]31.9 bpKxajkf32.0-34.0[facility] HospitalComment on above: Performed By: #### [id number] ####[facility] [address] [address] Abbi Choudhary M.D. [id number] (RBC) [Entitic vol]93.9 kGCefjwp55.0-100.0[facility] HospitalComment on above:Performed By: #### [id number] ####[facility] [address] [address] Abbi Choudhary M.D. [id number] CORPUSCULAR HEMOGLOBIN CONC33.9 g/kNTpxdfk34.0-37.0Log[facility]port [facility] HospitalComment on above: Performed By: #### [id number] ####[facility] [address] [address] Abbi Choudhary M.D. [id number] mean volume (Bld) [Entitic vol]9.7 fLNormal 9.4-12.4Log[facility]port [facility] HospitalComment on above:Performed By: #### [id number] ####[facility] [address] [address] Abbi Choudhary M.D. [id number] Platelets (Bld) [#/Vol]277 10*3/mQTpvren978-368JyvykfLogansport Memorial HospitalComment on above:Performed By: #### [id number] ####[facility] [address] [address] Abbi Choudhary M.D. [id number] (Bld) [#/Vol]2.95 10*6/uLLow4.00-5.20 [facility] HospitalComment on above:Performed By: #### [id number] ####[facility] [address] [address] Abbi Choudhary M.D. [id number] (Bld) [#/Vol]8.19 10*3/uLNormal4.50-11.00Log[facility] HospitalComment on above: Performed By: #### [id number] ####[facility] [address] [place], [place] [address] Abbi Choudhary M.D. [id number] panel Auto (Bld)on 71-99-7700Cmyvruyyuja distribution width (RBC) [Entitic vol]13.2 %11.6 - [...] 10*6/uLLowOhioHealthWBC (Bld) [#/Vol] 8.19 10*3/uLOhioHealthOhioHealthGlucose (Bld) [Mass/Vol]on 69-75-6174Lvyxcuo [Mass/Vol]236 mg/ePLxni70 - 99 mg/dLOhioHealthInterpretation and review of laboratory resultsAbnormalOhioHealthOhioHealthGlucose [Mass/Vol]282 mg/uUZdle06 - 99 mg/dLOhioHealthInterpretation and review of laboratory resultsAbnormal OhioHealthOhioHealthGlucose [Mass/Vol]267 mg/nJYlnb07 - 99 mg/dLOhioHealth Interpretation and review of laboratory resultsAbnormalOhioHealthOhioHealth Glucose [Mass/Vol]315 mg/qHThhm26 - 99 mg/dLOhioHealthInterpretation and review of laboratory resultsAbnormKeenan Private Hospital GLUCOSE [facility] 04-28-2024 Glucose [Mass/Vol]236 mg/vCNsaa16-65TdgyutSt. Vincent Clay HospitalComment on above: Performed By: #### [id number] ####[facility] [address] [place], [place] [address] Abbi Choudhary M.D. [id number] [Mass/Vol]282 mg/fAQlmj85-58Nurmbd64 Calderon StreetComment on above:Performed By: #### [id number] ####[facility] [address] [address] Abbi Choudhary M.D. [id number] [Mass/Vol]267 mg/dL Ftcv08-43Odsmtt43 Kelley StreetComment on above:Performed By: #### [id number] ####[facility] [address] [address] Abbi Choudhary M.D. 36D0 178181Bvkvqpd [Mass/Vol]315 mg/dMLxys29-30Oetgsg64 Calder[address] StreetComment on above:Performed By: #### [id number] ####[facility] [address] [place] [address] Abbi Choudhary M.D. [id number] FUNCTION PANELon 29-77-2262Veqrxnb [Mass/Vol]3.1 g/dLLow3.2-5.2MSt. Vincent Clay HospitalComment on above:Order Comment: [facility] has implemented the eGFR calculation approach that does not have a coefficient for race that conforms to the NKF-ASN Task Force Recommendations.Performed By: #### [id number] ####[facility] [address] [address] Abbi Choudhary M.D. [id number] gap [Moles/Vol]15 mmol/TEvuabz11-71NxcphxKing's Daughters Hospital and Health Services on above:Order Comment: [facility] [employer] [facility] has implemented the eGFR calculation approach that does not have a coefficient for race that conforms to the NKF-ASN Task Force Recommendations.Performed By: #### [id number] ####[facility] [address] [place], [place] [address] Abbi Choudhary M.D. [id number] [Mass/Vol]8.7 mg/dL Normal8.4-10.2MIndiana University Health Methodist Hospital on above:Order Comment: [facility] has implemented the eGFR calculation approach that does not have a coefficient for race that conforms to the NKF-ASN Task Force Recommendations.Performed By: #### [id number] ####[facility] [address] [place], [place] [address] Abbi Choudhary M.D. [id number] [Moles/Vol]102 mmol/LNormal 98-108[facility] on above:Order Comment: [facility] has implemented the eGFR calculation approach that does not have a coefficient for race that conforms to the NKF-ASN Task Force Recommendations.Performed By: #### [id number] ####[facility] [address] [place], [place] [address] Abbi Choudhary M.D. [id number] [Mass/Vol]1.68 mg/dLHigh 0.40-1.10[facility] on above:Order Comment: [facility] has implemented the eGFR calculation approach that does not have a coefficient for race that conforms to the NKF-ASN Task Force Recommendations.Performed By: #### [id number] ####[facility] [address] [place], [place] [address] Abbi Choudhary M.D. [id number] mL/min/1.73 m2Low>=60[facility] on above:Order Comment: [facility] has implemented the eGFR calculation approach that does not have a coefficient for race that conforms to the NKF-ASN Task Force Recommendations.Result Comment: Estimated GFR was calculated using the 2020 CKD-EPI creatinine equation. Performed By: #### [id number] ####[facility] [address] [place], [place] [address] bAbi Choudhary M.D. [id number] [Mass/Vol]408 mg/dLOff scale nrvm53-90MbmbtpIndiana University Health Methodist Hospital on above:Order Comment: [facility] has implemented the eGFR calculation approach that does not have a coefficient for race that conforms to the NKF-ASN Task Force Recommendations.Performed By: #### [id number] ####[facility] [address] [address] Abbi Choudhary M.D. [id number] (Bld) [Moles/Vol]24 mmol/NAgmzhq77-45VxoaipLogansport Memorial Hospital Comment on above:Order Comment: [facility] has implemented the eGFR calculation approach that does not have a coefficient for race that conforms to the NKF-ASN Task Force Recommendations.Performed By: #### [id number] ####[facility] [address] [address] Abbi Choudhary M.D. 36D0 [id number] [Mass/Vol]3.8 mg/dLNormal2.7-4.5Log[facility]port Memorial HospitalComment on above:Order Comment: [facility] has implemented the eGFR calculation approach that does not have a coefficient for race that conforms to the NKF-ASN Task Force Recommendations.Performed By: #### [id number] ####[facility] [address] [address] Abbi Choudhary M.D. [id number] [Moles/Vol]4.5 mmol/LNormal3.5-5.1MSt. Vincent Clay HospitalComment on above:Order Comment: [facility] has implemented the eGFR calculation approach that does not have a coefficient for race that conforms to the NKF-ASN Task Force Recommendations.Performed By: #### [id number] ####[facility] [address] [address] Abbi Choudhary M.D. [id number] [Moles/Vol]136 mmol/SPfwrne475-808GtlbymLogansport Memorial HospitalComment on above:Order Comment: [facility] has implemented the eGFR calculation approach that does not have a coefficient for race that conforms to the NKF-ASN Task Force Recommendations.Performed By: #### [id number] ####[facility] [address] [address] Abbi Choudhary M.D. [id number] nitrogen [Mass/Vol]27 mg/dLHigh8-25[facility] on above:Order Comment: [facility] has implemented the eGFR calculation approach that does not have a coefficient for race that conforms to the NKF-ASN Task Force Recommendations.Performed By: #### [id number] ####[facility] [address] [place], [place] [address] Abbi Choudhary M.D. [id number] nitrogen/Creatinine [Mass ratio]16.1 mg/klMzawoc59.0-20.0[facility] on above:Order Comment: [facility] has implemented the eGFR calculation approach that does not have a coefficient for race that conforms to the NKF-ASN Task Force Recommendations.Performed By: #### [id number] ####[facility] [address] [place], [place] [address] Abbi Choudhary M.D. [id number] function 2000 panel Ordered By: Navneet Parr on 43-50-5701Pefxkle [Mass/Vol]3.1 g/dLLow3.2 - 5.2 g/dLOhioHealthAnion gap [Moles/Vol]15 mmol/L10 - 20 mmol/LOhioHealthCalcium [Mass/Vol]8.7 mg/dL8.4 - 10.2 mg/dLOhioHealthChloride [Moles/Vol]102 mmol/L98 - 108 mmol/LOhioHealthCreatinine [Mass/Vol]1.68 mg/dLHigh0.40 - 1.10 mg/dL OhioHealthGFR/1.73 sq M.predicted CKD-EPI (S/P/Bld) [Vol rate/Area]38Low- PINF [facility] on above:Estimated GFR was calculated using the 2020 CKD-EPI creatinine equation.Glucose [Mass/Vol]408 mg/dLCritically high65 - 99 mg/dL OhioHealthHCO3 [Moles/Vol]24 mmol/L21 - 32 mmol/LOhioHealthInterpretation and review of laboratory resultsAbnormalOhioHealthPhosphate [Mass/Vol]3.8 mg/dL2.7 - 4.5 mg/dLOhioHealthPotassium [Moles/Vol]4.5 mmol/L3.5 - 5.1 mmol/LOhioHealth Sodium [Moles/Vol]136 mmol/L135 - 145 mmol/LOhioHealthUrea nitrogen [Mass/Vol]27 mg/dLHigh8 - 25 mg/dLOhioHealthUrea nitrogen/Creatinine [Mass ratio]16.1 mg/mg 10.0 - 20.0[facility] has implemented the eGFR calculation approach that does not have a coefficient for race that conforms to the NKF-ASN Task Force Recommendations.[facility] 15-22-9023MYXM NRBC0.0 %NormalLogansport Memorial HospitalComment on above:Performed By: #### 11081 #### LAB [address] [address] Abbi Choudhary M.D. 36D0 [id number] NRBC ABS COUNT0.00 K/mcLNormal0.00-0.00[facility] HospitalComment on above:Performed By: #### [id number] ####[facility] [address] [place] [address] Abbi Choudhary M.D. [id number] distribution width (RBC) [Ratio] 13.0 %Lunwyt12.6-14.8Log[facility]port Memorial HospitalComment on above:Performed By: #### [id number] ####[facility] [address] [place] [address] Abbi Choudhary M.D. [id number] (Bld) [Volume fraction]33.0 %Low36.0-46.0[facility] HospitalComment on above:Performed By: #### [id number] ####[facility] [address] [place] [address] Abbi Choudhary M.D. [id number] (Bld) [Mass/Vol] 11.3 g/dLLow12.0-16.0[facility] HospitalComment on above:Performed By: #### 02103 ####[facility] [address] [place] [address] Abbi Choudhary M.D. [id number] (RBC) [Entitic mass]31.1 pkQkdjrt45.0-34.0[facility] Comment on above:Performed By: #### [id number] ####[facility] [address] [address] Abbi Choudhary M.D. [id number] (RBC) [Entitic vol]90.9 fLNormal 80.0-100.0[facility] HospitalComment on above:Performed By: #### [id number] #### LAB [address] [address] Abbi Choudhary M.D. 36D0 [id number] CORPUSCULAR HEMOGLOBIN CONC34.2 g/cXLskuob01.0-37.0[facility] HospitalComment on above:Performed By: #### [id number] ####[facility] [address] [address] Abbi Choudhary M.D. [id number] mean volume (Bld) [Entitic vol]9.6 fLNormal9.4-12.4Log[facility] HospitalComment on above: Performed By: #### [id number] ####[facility] [address] [address] Abbi Choudhary M.D. [id number] (Bld) [#/Vol]287 10*3/qXYgjkrt525-819QajrbiLogansport Memorial HospitalComment on above:Performed By: #### [id number] ####[facility] [address] [address] Abbi Choudhary M.D. [id number] (Bld) [#/Vol]3.63 10*6/uLLow4.00-5.20[facility] HospitalComment on above:Performed By: #### [id number] ####[facility] [address] [address] Abbi Choudhary M.D. [id number] (Bld) [#/Vol]9.85 10*3/uLNormal4.50-11.00[facility] HospitalComment on above:Performed By: #### [id number] ####[facility] [address] [address] Abbi Choudhary M.D. [id number] panel Auto (Bld)on 97-48-3195Rfdmewgwwut distribution width (RBC) [Entitic vol]13 %11.6 - 14.8 % MississippiHealthHematocrit (Bld) [Volume fraction]33 %Low36.0 - 46.0 %[facility] Hemoglobin (Bld) [Mass/Vol]11.3 g/dLLow12.0 - 16.0 g/dLOhioHealthInterpretation and review of laboratory resultsAbnormalOhioHealthMCH (RBC) [Entitic mass]31.1 pg26.0 - 34.0 pgOhioHealthMCHC (RBC) [Mass/Vol]34.2 g/dL31.0 - 37.0 g/dL [facility] HospitalMCV (RBC) [Entitic vol]90.9 fL80.0 - 100.0 fLOhioHealthNucleated RBC (Bld) [#/Vol]0 10*3/uLOhioHealthNucleated RBC/100 WBC (Bld) [Ratio]0 %[facility] Platelet mean volume (Bld) [Entitic vol]9.6 fL9.4 - 12.4 fLOhioHealthPlatelets (Bld) [#/Vol]287 10*3/uLOhioHealthRBC (Bld) [#/Vol]3.63 10*6/uLLowOhioHealthWBC (Bld) [#/Vol]9.85 10*3/uLOhioHealthOhioHealthCONSULTon 68-17-7257NMHAZTOBaqxdgAdena Fayette Medical CenterGlucose (Bld) [Mass/Vol]on 58-89-8110Vxvaamm [Mass/Vol] 241 mg/qOBtbh86 - 99 mg/dLOhioHealthInterpretation and review of laboratory resultsAbnormPremier Health Atrium Medical CenterHealthGlucose [Mass/Vol]191 mg/dDEqzm16 - 99 mg/dL OhioAkron Children'S HospitalInterpretation and review of laboratory resultsAbnormalOhioHealth [facility] HospitalGlucose [Mass/Vol]184 mg/qPJnid50 - 99 mg/dLOhioHealthInterpretation and review of laboratory resultsAbnormBrown Memorial HospitalioHealthGlucose [Mass/Vol] 315 mg/hYVeug19 - 99 mg/dLOhioHealthInterpretation and review of laboratory resultsAbnormalOhioHealthOhioHealthGlucose [Mass/Vol]355 mg/tNTspe79 - 99 mg/dL OhioHealthInterpretation and review of laboratory resultsAbnormalOhioHealth OhioHealthGlucose [Mass/Vol]336 mg/rIKvvj07 - 99 mg/dLOhioHealthInterpretation and review of laboratory resultsAbnormalOhioHealthOhioHealthGold Topon 13-36-1803Bntkm TubeHold for add-ons.OhioHealthComment on above:Auto resulted. [facility] GLUCOSE - RALSon 51-78-1362Vbbkfow [Mass/Vol]241 mg/zGVcfc16-22 [facility] HospitalComment on above:Performed By: #### [id number] ####[facility] [address] [place], [place] [address] Abbi Choudhary M.D. [id number] [Mass/Vol]191 mg/rLGvox70-57HedwojSt. Vincent Clay HospitalComment on above:Performed By: #### [id number] ####[facility] [address] [place], [place] [address] Abbi Choudhary M.D. [id number] [Mass/Vol]184 mg/yAVvip50-74Gnsfqw[address] Comment on above:Performed By: #### [id number] ####[facility] [address] [place], [place] [address] Abbi Choudhary M.D. [id number] [Mass/Vol]315 mg/qYMzyf86-[address] [place], [place] [address]Comment on above:Performed By: #### [id number] ####[facility] [address] [place], [place] [address] Abbi Choudhary M.D. [id number] [Mass/Vol]355 mg/cCVgrl05-38NyfcujSt. Vincent Clay HospitalComment on above:Performed By: #### [id number] ####[facility] [address] [place], [place] [address] Abbi Choudhary M.D. [id number] [Mass/Vol]336 mg/bEAqzb12-14Ldhfim[address] Comment on above:Performed By: #### [id number] ####[facility] [address] [place], [place] [address] Abbi Choudhary M.D. [id number] FUNCTION PANELon 04-27-2024 Albumin [Mass/Vol]3.7 g/dLNormal3.2-5.2MIndiana University Health Methodist [facility] on above: Order Comment: [facility] has implemented the eGFR calculation approach that does not have a coefficient for race that conforms to the NKF-ASN Task Force Recommendations.Performed By: #### [id number] ####[facility] [address] [place], [place] [address] Abbi Choudhary M.D. [id number] gap [Moles/Vol]17 mmol/KNukgby49-11RcofktKing's Daughters Hospital and Health Services on above:Order Comment: [facility] has implemented the eGFR calculation approach that does not have a coefficient for race that conforms to the NKF-ASN Task Force Recommendations.Performed By: #### [id number] ####[facility] [address] [place] [address] Abbi Choudhary M.D. [id number] [Mass/Vol]8.7 mg/dLNormal8.4-10.2MIndiana [facility] Health Methodist Hospital on above:Order Comment: [facility] has implemented the eGFR calculation approach that does not have a coefficient for race that conforms to the NKF-ASN Task Force Recommendations.Performed By: #### [id number] ####[facility] [address] [place] [address] Abbi Choudhary M.D. [id number] [Moles/Vol]99 mmol/L Jpdmye16-674XeakihKing's Daughters Hospital and Health Services on above:Order Comment: [facility] has implemented the eGFR calculation approach that does not have a coefficient for race that conforms to the NKF-ASN Task Force Recommendations.Performed By: #### [id number] ####[facility] [address] [place], [place] [address] Abbi Choudhary M.D. [id number] [Mass/Vol]1.34 mg/dLHigh 0.40-1.10[facility] on above:Order Comment: [facility] has implemented the eGFR calculation approach that does not have a coefficient for race that conforms to the NKF-ASN Task Force Recommendations.Performed By: #### [id number] ####[facility] [address] [place] [address] Abbi Choudhary M.D. [id number] mL/min/1.73 m2Low>=60[facility] on above:Order Comment: [facility] has implemented the eGFR calculation approach that does not have a coefficient for race that conforms to the NKF-ASN Task Force Recommendations.Result Comment: Estimated GFR was calculated using the 2020 CKD-EPI creatinine equation. Performed By: #### [id number] ####[facility] [address] [place] [address] Abbi Choudhary M.D. [id number] [Mass/Vol]361 mg/fVWmuq68-54KyjxsqIndiana University Health Methodist Hospital on above:Order Comment: [facility] has implemented the eGFR calculation approach that does not have a coefficient for race that conforms to the NKF-ASN Task Force Recommendations.Performed By: #### [id number] ####[facility] [address] [place] [address] Abbi Choudhary M.D. [id number] (Bld) [Moles/Vol]23 mmol/EYsdzis57-01TltubmLogansport Memorial Hospital Comment on above:Order Comment: [facility] has implemented the eGFR calculation approach that does not have a coefficient for race that conforms to the NKF-ASN Task Force Recommendations.Performed By: #### [id number] ####[facility] [address] [place], [place] [address] Abbi Choudhary M.D. [id number] [Mass/Vol]2.4 mg/dLLow2.7-4.5[facility] on above:Order Comment: [facility] has implemented the eGFR calculation approach that does not have a coefficient for race that conforms to the NKF-ASN Task Force Recommendations.Performed By: #### [id number] ####[facility] [address] [place] [address] Abbi Choudhary M.D. [id number] [Moles/Vol]4.3 mmol/LNormal3.5-5.1MInd[facility] Health [facility] on above:Order Comment: [facility] has implemented the eGFR calculation approach that does not have a coefficient for race that conforms to the NKF-ASN Task Force Recommendations.Performed By: #### [id number] ####[facility] [address] [place] [address] Abbi Choudhary M.D. [id number] [Moles/Vol]135 mmol/OQyrffc286-259GfeljuKing's Daughters Hospital and Health Services on above:Order Comment: [facility] has implemented the eGFR calculation approach that does not have a coefficient for race that conforms to the NKF-ASN Task Force Recommendations.Performed By: #### [id number] ####[facility] [address] [place] [address] Abbi Choudhary M.D. [id number] nitrogen [Mass/Vol]26 mg/dLHigh8-25[facility] on above:Order Comment: [facility] has implemented the eGFR calculation approach that does not have a coefficient for race that conforms to the NKF-ASN Task Force Recommendations.Performed By: #### [id number] ####[facility] [address] [place] [address] Abbi Choudhary M.D. [id number] nitrogen/Creatinine [Mass ratio]19.4 mg/ilRhazpc43.0-20.0[facility] on above:Order Comment: [facility] has implemented the eGFR calculation approach that does not have a coefficient for race that conforms to the NKF-ASN Task Force Recommendations.Performed By: #### [id number] ####[facility] [address] [place] [address] Abbi Choudhary M.D. [id number] function 2000 panel on 55-96-1718Uvdyout [Mass/Vol]3.7 g/dL3.2 - 5.2 g/dLOhioHealthAnion gap [Moles/Vol]17 mmol/L10 - 20 mmol/LOhioHealthCalcium [Mass/Vol]8.7 mg/dL8.4 - 10.2 mg/dLOhioHealthChloride [Moles/Vol]99 mmol/L98 - 108 mmol/LOhioHealth Creatinine [Mass/Vol]1.34 mg/dLHigh0.40 - 1.10 mg/dLOhioHealthGFR/1.73 sq M.predicted CKD-EPI (S/P/Bld) [Vol rate/Area]49Low- PINFOhioHealthComment on above:Estimated GFR was calculated using the 2020 CKD-EPI creatinine equation. Glucose [Mass/Vol]361 mg/xZMtaw18 - 99 mg/dLOhioHealthHCO3 [Moles/Vol]23 mmol/L 21 - 32 mmol/LOhioHealthInterpretation and review of laboratory resultsAbnormal [facility] HospitalPhosphate [Mass/Vol]2.4 mg/dLLow2.7 - 4.5 mg/dLOhioHealthPotassium [Moles/Vol]4.3 mmol/L3.5 - 5.1 mmol/LOhioHealthSodium [Moles/Vol]135 mmol/L135 - 145 mmol/LOhioHealthUrea nitrogen [Mass/Vol]26 mg/dLHigh8 - 25 mg/dLOhioHealth Urea nitrogen/Creatinine [Mass ratio]19.4 mg/mg10.0 - 20.0[facility] has implemented the eGFR calculation approach that does not have a coefficient for race that conforms to the NKF-ASN Task Force Recommendations.[facility]-FairhillBASIC METABOLIC PANELon 79-82-9297Nyoxa gap [Moles/Vol]19 mmol/LAzssla41-00RowvzzLogansport Memorial HospitalComment on above:Order Comment: [facility] has implemented the eGFR calculation approach that does not have a coefficient for race that conforms to the NKF-ASN Task Force Recommendations.Performed By: #### [id number] ####[facility] [address] [place] [address] Abbi Choudhary M.D. [id number] [Mass/Vol]8.9 mg/dLNormal8.4-10.2MSt. Vincent Clay HospitalComcovenant medical center on above:Order Comment: [facility] has implemented the eGFR calculation approach that does not have a coefficient for race that conforms to the NKF-ASN Task Force Recommendations.Performed By: #### [id number] ####[facility] [address] [place], [place] [address] Abbi Choudhary M.D. [id number] [Moles/Vol]99 mmol/L Vfbqqu39-576LllkuvKing's Daughters Hospital and Health Services on above:Order Comment: [facility] has implemented the eGFR calculation approach that does not have a coefficient for race that conforms to the NKF-ASN Task Force Recommendations.Performed By: #### [id number] ####[facility] [address] [place] [address] Abbi Choudhary M.D. [id number] [Mass/Vol]1.66 mg/dLHigh 0.40-1.10[facility] on above:Order Comment: [facility] has implemented the eGFR calculation approach that does not have a coefficient for race that conforms to the NKF-ASN Task Force Recommendations.Performed By: #### [id number] ####[facility] [address] [place] [address] Abbi Choudhary M.D. [id number] mL/min/1.73 m2Low>=60[facility] on above:Order Comment: [facility] has implemented the eGFR calculation approach that does not have a coefficient for race that conforms to the NKF-ASN Task Force Recommendations.Result Comment: Estimated GFR was calculated using the 2020 CKD-EPI creatinine equation. Performed By: #### [id number] ####[facility] [address] [place] [address] Abbi Choudhary M.D. [id number] [Mass/Vol]293 mg/iPVwgs64-83OzdsolSt. Vincent Clay HospitalComcovenant medical center on above:Order Comment: [facility] has implemented the eGFR calculation approach that does not have a coefficient for race that conforms to the NKF-ASN Task Force Recommendations.Performed By: #### [id number] ####[facility] [address] [place] [address] Abbi Choudhary M.D. [id number] (Bld) [Moles/Vol]24 mmol/NDvohse78-98GywjveLogansport Memorial Hospital Comment on above:Order Comment: [facility] has implemented the eGFR calculation approach that does not have a coefficient for race that conforms to the NKF-ASN Task Force Recommendations.Performed By: #### [id number] #### LAB [address] [place] [address] Abbi Choudhary M.D. 36D0 [id number] [Moles/Vol]4.3 mmol/LNormal3.5-5.1MInd[facility] on above:Order Comment: [facility] has implemented the eGFR calculation approach that does not have a coefficient for race that conforms to the NKF-ASN Task Force Recommendations.Performed By: #### [id number] #### LAB [address] [place] [address] Abbi Choudhary M.D. [id number] [Moles/Vol]138 mmol/QFgkolk640-281GfsmlrKing's Daughters Hospital and Health Services on above:Order Comment: [facility] has implemented the eGFR calculation approach that does not have a coefficient for race that conforms to the NKF-ASN Task Force Recommendations.Performed By: #### [id number] ####[facility] [address] [place] [address] Abbi Choudhary M.D. [id number] nitrogen [Mass/Vol] 30 mg/dLHigh8-25[facility] on above:Order Comment: [facility] has implemented the eGFR calculation approach that does not have a coefficient for race that conforms to the NKF-ASN Task Force Recommendations.Performed By: #### [id number] ####[facility] [address] [place] [address] Abbi Choudhary M.D. [id number] nitrogen/Creatinine [Mass ratio]18.1 mg/xpRsalrc40.0-20.0[facility] on above:Order Comment: [facility] has implemented the eGFR calculation approach that does not have a coefficient for race that conforms to the NKF-ASN Task Force Recommendations.Performed By: #### [id number] ####[facility] [address] [place] [address] Abbi Choudhary M.D. [id number] metabolic 2000 panelon 64-77-0171Hqflh gap [Moles/Vol]19 mmol/L10 - 20 mmol/LOhioHealthCalcium [Mass/Vol]8.9 mg/dL8.4 - 10.2 mg/dLOhioHealthChloride [Moles/Vol]99 mmol/L98 - 108 mmol/LOhioHealthCreatinine [Mass/Vol]1.66 mg/dLHigh0.40 - 1.10 mg/dL OhioHealthGFR/1.73 sq M.predicted CKD-EPI (S/P/Bld) [Vol rate/Area]38Low- PINF [facility] HospitalComment on above:Estimated GFR was calculated using the 2020 CKD-EPI creatinine equation.Glucose [Mass/Vol]293 mg/vSEqvz61 - 99 mg/dLOhioHealthHCO3 [Moles/Vol]24 mmol/L21 - 32 mmol/LOhioHealthPotassium [Moles/Vol]4.3 mmol/L3.5 - 5.1 mmol/LOhioHealthSodium [Moles/Vol]138 mmol/L135 - 145 mmol/LOhioHealthUrea nitrogen [Mass/Vol]30 mg/dLHigh8 - 25 mg/dLOhioHealthUrea nitrogen/Creatinine [Mass ratio]18.1 mg/mg10.0 - 20.0OhioA[facility]io[facility] has implemented the eGFR calculation approach that does not have a coefficient for race that conforms to the NKF-ASN Task Force Recommendations.[facility] Auto Differentialon 28-17-9128Qrzmoyiwt (Bld) [#/Vol]0.05 10*3/uLOhioHealth Basophils/100 WBC (Bld)0.5 %OhioHealthEosinophils (Bld) [#/Vol]0.18 10*3/uL OhioHealthEosinophils/100 WBC (Bld)1.7 %[facility] HospitalErythrocyte distribution width (RBC) [Entitic vol]13.2 %11.6 - [...] (Bld) [#/Vol]10.46 10*3/uLOhioHealth OhioHealthCBC WITH AUTO DIFFERENTIALon 47-34-8659RRAF NRBC0.0 %[facility] HospitalComment on above:Performed By: #### [id number] ####[facility] [address] [place] [address] Abbi Choudhary M.D. [id number] NRBC ABS COUNT0.00 K/mcLNormal0.00-0.00[facility] HospitalComment on above:Performed By: #### [id number] ####[facility] [address] [place] [address] Abbi Choudhary M.D. [id number] ABSOLUTE COUNT0.05 K/mcLNormal0.00-0.30[facility] HospitalComment on above:Performed By: #### [id number] ####[facility] [address] [place] [address] Abbi Choudhary M.D. [id number]/100 WBC (Bld)0.5 %NormalLogansport Memorial HospitalComment on above:Performed By: #### [id number] ####[facility] [address] [place] [address] Abbi Choudhary M.D. [id number] (Bld) [#/Vol]0.18 10*3/uLNormal0.00-0.50Log[facility] Memorial HospitalComment on above:Performed By: #### [id number] ####[facility] [address] [place] [address] Abbi Choudhary M.D. [id number]/100 WBC (Bld) 1.7 %NormalLogansport Memorial HospitalComment on above:Performed By: #### [id number] ####[facility] [address] [place] [address] Abbi Choudhary M.D. 36 [id number] distribution width (RBC) [Ratio]13.2 %Opjkro83.6-14.8[facility] HospitalComment on above:Performed By: #### [id number] ####[facility] [address] [place] [address] Abbi Choudhary M.D. [id number] (Bld) [Volume fraction]34.9 %Low36.0-46.0[facility] HospitalComment on above: Performed By: #### [id number] ####[facility] [address] [place] [address] Abbi Choudhary M.D. [id number] (Bld) [Mass/Vol]11.9 g/dLLow12.0-16.0 [facility] HospitalComment on above:Performed By: #### [id number] ####[facility] [address] [place] [address] Abbi Choudhary M.D. [id number] ABSOLUTE 0.09 K/mcLNormal0.00-0.30[facility] HospitalComment on above:Performed By: #### [id number] ####[facility] [address] [place] [address] Abbi Choudhary M.D. [id number] PERCENT0.90 %[facility] HospitalComment on above: Result Comment: The IG parameter is the percentage of metamyelocytes, myelocytes and promyelocytes.An immature granulocyte count (IG) of 1% or more suggests the possibility of infection, an IG countof 3% is very likely related to an infection.Performed By: #### [id number] ####[facility] [address] [place] [address] Abbi Choudhary M.D. [id number] (Bld) [#/Vol]1.60 10*3/uLNormal0.90-4.00[facility] HospitalComment on above:Performed By: #### [id number] ####[facility] [address] [place] [address] Abbi Choudhary M.D. [id number]/100 WBC (Bld)15.3 %[facility] HospitalComment on above:Performed By: #### [id number] ####[facility] [address] [place] [address] Abbi Choudhary M.D. [id number] (RBC) [Entitic mass]31.2 pgNormal 26.0-34.0[facility] HospitalComment on above:Performed By: #### [id number] ####[facility] [address] [place] [address] Abbi Choudhary M.D. 36 [id number] (RBC) [Entitic vol]91.4 jIJistwl37.0-100.0[facility] Comment on above:Performed By: #### [id number] ####[facility] [address] [place] [address] Abbi Choudhary M.D. [id number] CORPUSCULAR HEMOGLOBIN CONC34.1 g/qDJekrco64.0-37.0[facility] HospitalComment on above:Performed By: #### [id number] ####[facility] [address] [place] [address] Abbi Choudhary M.D. [id number] (Bld) [#/Vol]0.50 10*3/uLNormal0.30-0.90[facility] HospitalComment on above:Performed By: #### [id number] ####[facility] [address] [place] [address] Abbi Choudhary M.D. [id number]/100 WBC (Bld) 4.8 %NormalLogansport Memorial HospitalComment on above:Performed By: #### [id number] ####[facility] [address] [place] [address] Abbi Choudhary M.D. 36 [id number] ABSOLUTE COUNT8.04 K/mcLHigh1.70-7.00[facility] Comment on above:Performed By: #### [id number] ####[facility] [address] [place] [address] Abbi Choudhary M.D. [id number]/100 WBC (Bld)76.8 % [facility] HospitalComment on above:Performed By: #### [id number] ####[facility] [address] [place] [address] Abbi Choudhary M.D. [id number] Platelet mean volume (Bld) [Entitic vol]9.8 fLNormal9.4-12.4[facility] HospitalComment on above:Performed By: #### [id number] ####[facility] [address] [place], [place] [address] Abbi Choudhary M.D. [id number] (Bld) [#/Vol] 294 10*3/rHCndkos992-738AjijhqLogansport Memorial HospitalComment on above:Performed By: #### [id number] ####[facility] [address] [place], [place] [address] Abbi Choudhary M.D. [id number] (Bld) [#/Vol]3.82 10*6/uLLow4.00-5.20[facility] Comment on above:Performed By: #### [id number] ####[facility] [address] [place], [place] [address] Abbi Choudhary M.D. [id number] (Bld) [#/Vol]10.46 10*3/uL Normal4.50-11.00[facility] HospitalComment on above:Performed By: #### [id number] ####[facility] [address] [place], [place] [address] Abbi Choudhary M.D. [id number], INFLAMMATIONon 19-26-2047OUG [Mass/Vol]91.8 mg/LHigh0.0-10.0 [facility] HospitalComment on above:Performed By: #### [id number] ####[facility] [address] [place], [place] [address] Abbi Choudhary M.D. [id number], Inflammationon 48-02-5595UCY [Mass/Vol]91.8 mg/LHigh0.0 - 10.0 mg/LOhioHealth Dark Green TopOrdered By: Sandra Aguilar on 57-44-7041Pzvvv TubenOhioHealBrecksville VA / Crille HospitalED Prov Noteon 38-37-1003CQ Prov NoteNormParkview Noble HospitalESR Westergren method (Bld) [Velocity]on 16-52-6659NYI (Bld) [Velocity]58 mm/hHigh [facility] HospitalInterpretation and review of laboratory resultsAbnormalOhiPAealth [facility] Hospital AND Paulino 04-26-2024H AND PNormalLogansport Memorial HospitalNo Panel Informationon 05-43-7505Ffchv TubeHold for add-ons.OhioHealthComment on above: Auto resulted.OhioHealthInterpretation and review of laboratory resultsAbnormal OhioHealthOhioHealthSEDIMENTATION RATEon 45-91-9766WMLJSOINAWMUB RATE, MYYMKHKNTAC91 mm/hrHigh0-20[facility] HospitalComment on above:Performed By: #### [id number] ####[facility] [address] [place] [address] Abbi Choudhary M.D. [id number] FOOT LEFT 3+ VIEWS (STANDARD)on 29-39-4424LE FOOT LEFT 3+ VIEWS (STANDARD)[facility] HospitalComment on above:Order Comment: Injury/Trauma or Illness?:Illness/OtherPatient arrives with EMS ([facility]). She ambulated off of EMS [...] for exam?:Patient arrives with EMS ([facility]). She ambulated offof EMS cot with assistance [...] and symptoms?:Patient arrives with EMS ([facility]). She ambulated off of EMS [...] clear drainage.XR Foot - left 3 Viewson 05-16-7295VCBQNRHY/ 1. 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 She ambulated off of EMS [...] symptoms: Patient arrives with EMS ([facility]). She ambulated off of EMS cotwith assistance [...] exam: Patient arrives with EMS ([facility]). She ambulated off of EMS [...] symptoms: Patient arrives with EMS ([facility]). She ambulated off of EMS cotwith assistance [...] bony abnormality is seen. Workstation ID: [id number] [facility] HospitalRadiology Study observation (narrative)[facility] HospitalXR Foot - left 3 ViewsOrdered By: Agustin Andrea on 59-82-7594HsevFxzjeq Work Phone: CBCon [phone] NRBC0.0 %NormalLogansport Memorial HospitalComment on above:Performed By: #### [id number] ####[facility] [address] [place] [address] Abbi Choudhary M.D. [id number] NRBC ABS COUNT0.00 K/mcL Normal0.00-0.00[facility] HospitalComment on above:Performed By: #### [id number] ####[facility] [address] [place] [address] Abbi Choudhary M.D. 36D0 899917Bicvvqgmkxo distribution width (RBC) [Ratio]13.1 %Zxcsru46.6-14.8[facility] HospitalComment on above:Performed By: #### [id number] ####[facility] [address] [place] [address] Abbi Choudhary M.D. [id number] (Bld) [Volume fraction]26.7 %Low36.0-46.0[facility] HospitalComment on above: Performed By: #### [id number] ####[facility] [address] [place] [address] Abbi Choudhary M.D. [id number] (Bld) [Mass/Vol]8.9 g/dLLow12.0-16.0[facility] HospitalComment on above:Performed By: #### [id number] ####[facility] [address] [place] [address] Abbi Choudhary M.D. [id number] (RBC) [Entitic mass]31.1 mfKucqnl69.0-34.0[facility] HospitalComment on above: Performed By: #### [id number] ####[facility] [address] [place] [address] Abbi Choudhary M.D. [id number] (RBC) [Entitic vol]93.4 cKKcnrxo42.0-100.0[facility] HospitalComment on above:Performed By: #### [id number] ####[facility] [address] [place] [address] Abbi Choudhary M.D. [id number] CORPUSCULAR HEMOGLOBIN CONC33.3 g/pFPiyufk95.0-37.0[facility] HospitalComment on above: Performed By: #### [id number] ####[facility] [address] [place] [address] Abbi Choudhary M.D. [id number] mean volume (Bld) [Entitic vol]9.6 fLNormal 9.4-12.4[facility] HospitalComment on above:Performed By: #### [id number] ####[facility] [address] [place] [address] Abbi Choudhary M.D. [id number] Platelets (Bld) [#/Vol]256 10*3/iVFlxgkd320-364XhtqsqLogansport Memorial HospitalComment on above:Performed By: #### [id number] ####[facility] [address] [place] [address] Abbi Choudhary M.D. [id number] (Bld) [#/Vol]2.86 10*6/uLLow4.00-5.20 [facility] HospitalComcovenant medical center on above:Performed By: #### [id number] ####[facility] [address] [place] [address] Abbi Choudhary M.D. [id number] (Bld) [#/Vol]7.11 10*3/uLNormal4.50-11.00[facility] HospitalComment on above: Performed By: #### [id number] ####[facility] [address] [place] [address] Abbi Choudhary M.D. [id number] panel Auto (Bld)on 99-80-2144Nskkohibhse distribution width (RBC) [Entitic vol]13.1 %11.6 - [...] [#/Vol]2.86 10*6/uLLowOhioHealthWBC (Bld) [#/Vol] 7.11 10*3/uLOhioHealthOhioHealthDisch [place] 85-96-5515Qxdkv [facility] Health ServicesRENAL FUNCTION PANELon 87-61-3128Qhgywnp [Mass/Vol]3.2 g/dL Normal3.2-5.2MSt. Vincent Clay HospitalComcovenant medical center on above:Order Comment: [facility] has implemented the eGFR calculation approach that does not have a coefficient for race that conforms to the NKF-ASN Task Force Recommendations.Performed By: #### [id number] ####[facility] [address] [place] [address] Abbi Choudhary M.D. [id number] gap [Moles/Vol]12 mmol/LNormal -[facility] on above:Order Comment: [facility] has implemented the eGFR calculation approach that does not have a coefficient for race that conforms to the NKF-ASN Task Force Recommendations.Performed By: #### [id number] ####[facility] [address] [place], [place] [address] Abbi Choudhary M.D. [id number] [Mass/Vol]8.4 mg/dLNormal 8.4-10.2MSt. Vincent Clay HospitalComcovenant medical center on above:Order Comment: [facility] has implemented the eGFR calculation approach that does not have a coefficient for race that conforms to the NKF-ASN Task Force Recommendations.Performed By: #### [id number] #### LAB [address] [place], [place] [address] Abbi Choudhary M.D. [id number] [Moles/Vol]105 mmol/LNormal 98-108Logansport Memorial HospitalComment on above:Order Comment: [facility] has implemented the eGFR calculation approach that does not have a coefficient for race that conforms to the NKF-ASN Task Force Recommendations.Performed By: #### [id number] ####[facility] [address] [place], [place] [address] Abbi Choudhary M.D. [id number] [Mass/Vol]1.34 mg/dLHigh 0.40-1.10Log[facility] HospitalComment on above:Order Comment: [facility] has implemented the eGFR calculation approach that does not have a coefficient for race that conforms to the NKF-ASN Task Force Recommendations.Performed By: #### [id number] ####[facility] [address] [place] [address] Abbi Choudhary M.D. [id number] mL/min/1.73 m2Low>=60Log[facility]port Memorial HospitalComment on above:Order Comment: [facility] has implemented the eGFR calculation approach that does not have a coefficient for race that conforms to the NKF-ASN Task Force Recommendations.Result Comment: Estimated GFR was calculated using the 2020 CKD-EPI creatinine equation. Performed By: #### [id number] ####[facility] [address] [place], [place] [address] Abbi Choudhary M.D. [id number] [Mass/Vol]245 mg/sPHhyw52-32XlccwmSt. Vincent Clay HospitalComcovenant medical center on above:Order Comment: [facility] has implemented the eGFR calculation approach that does not have a coefficient for race that conforms to the NKF-ASN Task Force Recommendations.Performed By: #### [id number] ####[facility] [address] [place], [place] [address] Abbi Choudhary M.D. [id number] (Bld) [Moles/Vol]28 mmol/OMonvdv01-41AtkvfcLogansport Memorial Hospital Comment on above:Order Comment: [facility] has implemented the eGFR calculation approach that does not have a coefficient for race that conforms to the NKF-ASN Task Force Recommendations.Performed By: #### [id number] ####[facility] [address] [place] [address] Abbi Choudhary M.D. 36D0 [id number] [Mass/Vol]3.8 mg/dLNormal2.7-4.5[facility] on above:Order Comment: [facility] has implemented the eGFR calculation approach that does not have a coefficient for race that conforms to the NKF-ASN Task Force Recommendations.Performed By: #### [id number] ####[facility] [address] [place] [address] Abbi Choudhary M.D. [id number] [Moles/Vol]4.0 mmol/LNormal3.5-5.1MIndiana University Health [facility] on above:Order Comment: [facility] has implemented the eGFR calculation approach that does not have a coefficient for race that conforms to the NKF-ASN Task Force Recommendations.Performed By: #### [id number] ####[facility] [address] [address] Abbi Choudhary M.D. [id number] [Moles/Vol]141 mmol/MHejxhm818-182NpwyqlKing's Daughters Hospital and Health Services on above:Order Comment: [facility] has implemented the eGFR calculation approach that does not have a coefficient for race that conforms to the NKF-ASN Task Force Recommendations.Performed By: #### [id number] ####[facility] [address] [place] [address] Abbi Choudhary M.D. [id number] nitrogen [Mass/Vol]20 mg/dLNormal8-25[facility] on above:Order Comment: [facility] has implemented the eGFR calculation approach that does not have a coefficient for race that conforms to the NKF-ASN Task Force Recommendations.Performed By: #### [id number] ####[facility] [address] [place] [address] Abbi Choudhary M.D. [id number] nitrogen/Creatinine [Mass ratio]14.9 mg/oiHvtbdb73.0-20.0[facility] on above:Order Comment: [facility] has implemented the eGFR calculation approach that does not have a coefficient for race that conforms to the NKF-ASN Task Force Recommendations.Performed By: #### [id number] ####[facility] [address] [place] [address] Abbi Choudhary M.D. [id number] function 2000 panel on 79-76-1064Dwtzzft [Mass/Vol]3.2 g/dL3.2 - 5.2 g/dLOhioHealthAnion gap [Moles/Vol]12 mmol/L10 - 20 mmol/LOhioHealthCalcium [Mass/Vol]8.4 mg/dL8.4 - 10.2 mg/dLOhioHealthChloride [Moles/Vol]105 mmol/L98 - 108 mmol/LOhioHealth Creatinine [Mass/Vol]1.34 mg/dLHigh0.40 - 1.10 mg/dLOhioHealthGFR/1.73 sq M.predicted CKD-EPI (S/P/Bld) [Vol rate/Area]50Low- PINFOhioHealthGlucose [Mass/Vol]245 mg/dQHbyq19 - 99 mg/dLOhioHealthHCO3 [Moles/Vol]28 mmol/L21 - 32 mmol/LOhioHealthInterpretation and review of laboratory resultsAbnormal OhioHealthPhosphate [Mass/Vol]3.8 mg/dL2.7 - 4.5 mg/dLOhioHealthPotassium [Moles/Vol]4 mmol/L3.5 - 5.1 mmol/LOhioHealthSodium [Moles/Vol]141 mmol/L135 - 145 mmol/LOhioHealthUrea nitrogen [Mass/Vol]20 mg/dL8 - 25 mg/dLOhioHealthUrea nitrogen/Creatinine [Mass ratio]14.9 mg/mg10.0 - 20.0OhioHealthOhioHealth [facility] HospitalS[facility] Site Aerobic CultureOrdered By: Maria T Matamoros on 04-04-2024 Bacteria identified Aer cx Nom (Unsp spec)Rare growth Staphylococcus epidermidis AbnormalOhioHealthInterpretation and review of laboratory resultsAbnormal OhioHealthMicroscopic observation Gram stain Nom (Unsp spec)Many WBCOhioHealth Microscopic observation Gram stain Nom (Unsp spec)Many RBCOhioHealthMicroscopic observation Gram stain Nom (Unsp spec)No Organisms SeenOhioHealthOhioHealthCBCon 08-50-4371BHGD NRBC0.0 %NormalLogansport Memorial HospitalComment on above:Performed By: #### [id number] ####[facility] [address] [place] [address] Abbi Choudhary M.D. [id number] NRBC ABS COUNT0.00 K/mcLNormal0.00-0.00Log[facility] HospitalComment on above:Performed By: #### [id number] ####[facility] [address] [place] [address] Abbi Choudhary M.D. [id number] distribution width (RBC) [Ratio]13.5 %Jzwmhp03.6-14.8Log[facility] Memorial HospitalComment on above: Performed By: #### [id number] #### LAB [address] [place] [address] Abbi Choudhary M.D. [id number] (Bld) [Volume fraction]26.8 %Low36.0-46.0 [facility] HospitalComment on above:Performed By: #### [id number] #### LAB [address] [place] [address] Abbi Choudhary M.D. [id number] (Bld) [Mass/Vol]8.8 g/dLLow12.0-16.0[facility] HospitalComment on above: Performed By: #### [id number] ####[facility] [address] [place] [address] Abbi Choudhary M.D. [id number] (RBC) [Entitic mass]31.1 wmTaanxk37.0-34.0[facility] HospitalComment on above:Performed By: #### [id number] #### LAB [address] [place] [address] Abbi Choudhary M.D. [id number] (RBC) [Entitic vol]94.7 hPMfhwew64.0-100.0[facility] HospitalComment on above: Performed By: #### [id number] ####[facility] [address] [place] [address] Abbi Choudhary M.D. [id number] CORPUSCULAR HEMOGLOBIN CONC32.8 g/dLNormal 31.0-37.0Log[facility] HospitalComment on above:Performed By: #### [id number] ####[facility] [address] [place] [address] Abbi Choudhary M.D. 36D0 [id number] mean volume (Bld) [Entitic vol]9.5 fLNormal9.4-12.4Log[facility] HospitalComment on above:Performed By: #### [id number] ####[facility] [address] [place] [address] Abbi Choudhary M.D. [id number] (Bld) [#/Vol]277 10*3/gEQfjtmj938-093XiwcapLogansport Memorial HospitalComment on above:Performed By: #### [id number] ####[facility] [address] [place] [address] Abbi Choudhary M.D. [id number] (Bld) [#/Vol]2.83 10*6/uLLow4.00-5.20[facility] Comment on above:Performed By: #### [id number] ####[facility] [address] [place] [address] Abbi Choudhary M.D. [id number] (Bld) [#/Vol]7.63 10*3/uLNormal 4.50-11.00[facility] HospitalComment on above:Performed By: #### [id number] ####[facility] [address] [place] [address] Abbi Choudhary M.D. 36D0 [id number] panel Auto (Bld)on 03-91-2211Rqhocktonbw distribution width (RBC) [Entitic vol]13.5 %11.6 - [...] 2.83 10*6/uLLowOhioHealthWBC (Bld) [#/Vol]7.63 10*3/uLOhioHealthOhioHealthRENAL FUNCTION PANELon 88-34-4976Vsavati [Mass/Vol]3.2 g/dLNormal3.2-5.2MSt. Vincent Clay HospitalComment on above:Order Comment: [facility] has implemented the eGFR calculation approach that does not have a coefficient for race that conforms to the NKF-ASN Task Force Recommendations.Performed By: #### [id number] ####[facility] [address] [place] [address] Abbi Choudhary M.D. [id number] gap [Moles/Vol]11 mmol/XVxmiwd40-19ClzxnfLogansport Memorial Hospital Comment on above:Order Comment: [facility] has implemented the eGFR calculation approach that does not have a coefficient for race that conforms to the NKF-ASN Task Force Recommendations.Performed By: #### [id number] #### LAB [address] [place], [place] [address] Abbi Choudhary M.D. 36D0 [id number] [Mass/Vol]8.2 mg/dLLow8.4-10.2[facility] HospitalComment on above:Order Comment: [facility] has implemented the eGFR calculation approach that does not have a coefficient for race that conforms to the NKF-ASN Task Force Recommendations.Performed By: #### [id number] ####[facility] [address] [place], [place] [address] Abbi Choudhary M.D. [id number] [Moles/Vol]106 mmol/ZIfybce35-060PlcrymKing's Daughters Hospital and Health Services on above:Order Comment: [facility] has implemented the eGFR calculation approach that does not have a coefficient for race that conforms to the NKF-ASN Task Force Recommendations.Performed By: #### [id number] ####[facility] [address] [place], [place] [address] Abbi Choudhary M.D. [id number] [Mass/Vol]1.65 mg/dLHigh0.40-1.10[facility] on above:Order Comment: [facility] has implemented the eGFR calculation approach that does not have a coefficient for race that conforms to the NKF-ASN Task Force Recommendations.Performed By: #### [id number] ####[facility] [address] [place], [place] [address] Abbi Choudhary M.D. [id number] mL/min/1.73 m2Low>=60 [facility] on above:Order Comment: [facility] has implemented the eGFR calculation approach that does not have a coefficient for race that conforms to the NKF-ASN Task Force Recommendations. Result Comment: Estimated GFR was calculated using the 2020 CKD-EPI creatinine equation.Performed By: #### [id number] ####[facility] [address] [place], [place] [address] Abbi Choudhary M.D. [id number] [Mass/Vol]206 mg/tYYdhl15-17FzklwiIndiana University Health Methodist Hospital on above:Order Comment: [facility] has implemented the eGFR calculation approach that does not have a coefficient for race that conforms to the NKF-ASN Task Force Recommendations.Performed By: #### [id number] ####[facility] [address] [place], [place] [address] Abbi Choudhary M.D. [id number] (Bld) [Moles/Vol]28 mmol/GNrgvlr09-52UihoptLogansport Memorial Hospital Comment on above:Order Comment: [facility] has implemented the eGFR calculation approach that does not have a coefficient for race that conforms to the NKF-ASN Task Force Recommendations.Performed By: #### [id number] ####[facility] [address] [place] [address] Abbi Choudhary M.D. 36D0 [id number] [Mass/Vol]4.4 mg/dLNormal2.7-4.5[facility] on above:Order Comment: [facility] has implemented the eGFR calculation approach that does not have a coefficient for race that conforms to the NKF-ASN Task Force Recommendations.Performed By: #### 75701 ####[facility] [address] [place] [address] Abbi Choudhary M.D. [id number] [Moles/Vol]3.7 mmol/LNormal3.5-5.1MSelect Specialty Hospital - Evansvillement on above:Order Comment: [facility] has implemented the eGFR calculation approach that does not have a coefficient for race that conforms to the NKF-ASN Task Force Recommendations.Performed By: #### [id number] ####[facility] [address] [place] [address] Abbi Choudhary M.D. [id number] [Moles/Vol]141 mmol/VAqebft065-065OgnqqaLogansport Memorial HospitalComcovenant medical center on above:Order Comment: [facility] has implemented the eGFR calculation approach that does not have a coefficient for race that conforms to the NKF-ASN Task Force Recommendations.Performed By: #### [id number] ####[facility] [address] [place], [place] [address] Abbi Choudhary M.D. [id number] nitrogen [Mass/Vol]19 mg/dLNormal8-25[facility] on above:Order Comment: [facility] has implemented the eGFR calculation approach that does not have a coefficient for race that conforms to the NKF-ASN Task Force Recommendations.Performed By: #### [id number] ####[facility] [address] [place], [place] [address] Abbi Choudhary M.D. [id number] nitrogen/Creatinine [Mass ratio]11.5 mg/pkFpgyth93.0-20.0[facility] HospitalComment on above:Order Comment: [facility] has implemented the eGFR calculation approach that does not have a coefficient for race that conforms to the NKF-ASN Task Force Recommendations.Performed By: #### [id number] ####[facility] [address] [place], [place] [address] Abbi Choudhary M.D. [id number] function 2000 panel on 93-49-7506Kjsicyi [Mass/Vol]3.2 g/dL3.2 - 5.2 g/dLOhioHealthAnion gap [Moles/Vol]11 mmol/L10 - 20 mmol/LOhioHealthCalcium [Mass/Vol]8.2 mg/dLLow8.4 - 10.2 mg/dLOhioHealthChloride [Moles/Vol]106 mmol/L98 - 108 mmol/LOhioHealth Creatinine [Mass/Vol]1.65 mg/dLHigh0.40 - 1.10 mg/dLOhioHealthGFR/1.73 sq M.predicted CKD-EPI (S/P/Bld) [Vol rate/Area]39Low- PINFOhioHealthGlucose [Mass/Vol]206 mg/nOShfd77 - 99 mg/dLOhioHealthHCO3 [Moles/Vol]28 mmol/L21 - 32 mmol/LOhioHealthInterpretation and review of laboratory resultsAbnormal [facility] HospitalPhosphate [Mass/Vol]4.4 mg/dL2.7 - 4.5 mg/dLOhioHealthPotassium [Moles/Vol]3.7 mmol/L3.5 - 5.1 mmol/LOhioHealthSodium [Moles/Vol]141 mmol/L135 - 145 mmol/LOhioHealthUrea nitrogen [Mass/Vol]19 mg/dL8 - 25 mg/dLOhioHealthUrea nitrogen/Creatinine [Mass ratio]11.5 mg/mg10.0 - 20.0[facility]HealthOhioHealth [facility] 50-81-0180VPQX NRBC0.0 %NormalMarion General HospitalComment on above:Performed By: #### [id number] ####[facility] [address] [place], [place] [address] Abbi Choudhary M.D. [id number] NRBC ABS COUNT0.00 K/mcLNormal0.00-0.00 [facility] HospitalComment on above:Performed By: #### [id number] ####[facility] [address] [place] [address] Abbi Choudhary M.D. [id number] distribution width (RBC) [Ratio]13.1 %Hbbiik63.6-14.8[facility] Comment on above:Performed By: #### [id number] ####[facility] [address] [place] [address] Abbi Choudhary M.D. [id number] (Bld) [Volume fraction] 26.0 %Low36.0-46.0[facility] HospitalComment on above:Performed By: #### 74422 ####[facility] [address] [place], [place] [address] Abbi Choudhary M.D. [id number] (Bld) [Mass/Vol]8.9 g/dLLow12.0-16.0[facility] Comment on above:Performed By: #### [id number] ####[facility] [address] [place] [address] Abbi Choudhary M.D. [id number] (RBC) [Entitic mass]31.2 pg Dndcdc26.0-34.0[facility] HospitalComment on above:Performed By: #### [id number] ####[facility] [address] [place] [address] Abbi Choudhary M.D. 36D0 [id number] (RBC) [Entitic vol]91.2 sSPtxaqi03.0-100.0[facility] Comment on above:Performed By: #### [id number] #### LAB [address] [place] [address] Abbi Choudhary M.D. [id number] CORPUSCULAR HEMOGLOBIN CONC34.2 g/aUZqfepq56.0-37.0[facility] HospitalComment on above:Performed By: #### [id number] ####[facility] [address] [place] [address] Abbi Choudhary M.D. [id number] mean volume (Bld) [Entitic vol]9.2 fLLow9.4-12.4[facility] HospitalComment on above:Performed By: #### [id number] ####[facility] [address] [place] [address] Abbi Choudhary M.D. [id number] (Bld) [#/Vol]277 10*3/mUWasnki255-345QunoroLogansport Memorial HospitalComment on above:Performed By: #### [id number] ####[facility] [address] [place] [address] Abbi Choudhary M.D. [id number] (Bld) [#/Vol]2.85 10*6/uLLow4.00-5.20[facility] HospitalComment on above:Performed By: #### [id number] ####[facility] [address] [place] [address] Abbi Choudhary M.D. [id number] (Bld) [#/Vol]7.42 10*3/uL Normal4.50-11.00[facility] HospitalComment on above:Performed By: #### 10119 ####[facility] [address] [place] [address] Abbi Choudhary M.D. 36D0 [id number] panel Auto (Bld)on 01-27-8022Iuqgojmgegp distribution width (RBC) [Entitic vol]13.1 %11.6 - 14.8 %OhioHealthHematocrit (Bld) [Volume fraction]26 % Low36.0 - 46.0 %OhioHealthHemoglobin (Bld) [Mass/Vol]8.9 g/dLLow12.0 - 16.0 g/dL [facility] HospitalInterpretation and review of laboratory resultsAbnormalOhioHealthMCH (RBC) [Entitic mass]31.2 pg26.0 - 34.0 pgOhioHealthMCHC (RBC) [Mass/Vol]34.2 g/dL31.0 - 37.0 g/dLOhioHealthMCV (RBC) [Entitic vol]91.2 fL80.0 - 100.0 fL OhioHealthNucleated RBC (Bld) [#/Vol]0 10*3/uLOhioHealthNucleated RBC/100 WBC (Bld) [Ratio]0 %OhioHealthPlatelet mean volume (Bld) [Entitic vol]9.2 fLLow9.4 - 12.4 fLOhioHealthPlatelets (Bld) [#/Vol]277 10*3/uLOhioHealthRBC (Bld) [#/Vol] 2.85 10*6/uLLowOhioHealthWBC (Bld) [#/Vol]7.42 10*3/uLOhioHealthOhioHealth Glucose (Bld) [Mass/Vol]on 77-41-1969Dwwojkz [Mass/Vol]239 mg/oRSbyv48 - 99 mg/dLOhioHealthInterpretation and review of laboratory resultsAbnoDelaware County Hospital GLUCOSE - [facility] MEDICAL CENTERSon 75-80-4778Vtgvqsf [Mass/Vol]239 mg/mRLdyl15-04 [facility] HospitalComment on above:Performed By: #### [id number] ####[facility] [address] [place], [place] [address] Abbi Choudhary M.D. [id number] FUNCTION PANELon 35-24-9676Uedzjpf [Mass/Vol]3.2 g/dLNoal3.2-5.2MSt. Vincent Clay HospitalComment on above:Order Comment: [facility] has implemented the eGFR calculation approach that does not have a coefficient for race that conforms to the NKF-ASN Task Force Recommendations.Performed By: #### [id number] ####[facility] [address] [place], [place] [address] Abbi Choudhary M.D. [id number] gap [Moles/Vol]11 mmol/QFkgadp44-78BorvebLogansport Memorial Hospital Comment on above:Order Comment: [facility] has implemented the eGFR calculation approach that does not have a coefficient for race that conforms to the NKF-ASN Task Force Recommendations.Performed By: #### [id number] ####[facility] [address] [place], [place] [address] Abbi Choudhary M.D. 36D0 [id number] [Mass/Vol]8.3 mg/dLLow8.4-10.2MIndiana University Health Methodist Hospital on above:Order Comment: [facility] has implemented the eGFR calculation approach that does not have a coefficient for race that conforms to the NKF-ASN Task Force Recommendations.Performed By: #### [id number] ####[facility] [address] [place] [address] Abbi Choudhary M.D. [id number] [Moles/Vol]107 mmol/RPpfryi76-373LnfqioKing's Daughters Hospital and Health Services on above:Order Comment: [facility] has implemented the eGFR calculation approach that does not have a coefficient for race that conforms to the NKF-ASN Task Force Recommendations.Performed By: #### 30526 ####[facility] [address] [place] [address] Abbi Choudhary M.D. [id number] [Mass/Vol]1.63 mg/dLHigh0.40-1.10[facility] on above:Order Comment: [facility] has implemented the eGFR calculation approach that does not have a coefficient for race that conforms to the NKF-ASN Task Force Recommendations.Performed By: #### [id number] ####[facility] [address] [place], [place] [address] Abbi Choudhary M.D. [id number] mL/min/1.73 m2Low>=60 [facility] on above:Order Comment: [facility] has implemented the eGFR calculation approach that does not have a coefficient for race that conforms to the NKF-ASN Task Force Recommendations. Result Comment: Estimated GFR was calculated using the 2020 CKD-EPI creatinine equation.Performed By: #### [id number] ####[facility] [address] [place] [address] Abbi Choudhary M.D. [id number] [Mass/Vol]233 mg/hQZvqr07-42OauqpbSelect Specialty Hospital - Evansvillement on above:Order Comment: [facility] has implemented the eGFR calculation approach that does not have a coefficient for race that conforms to the NKF-ASN Task Force Recommendations.Performed By: #### 95140 ####[facility] [address] [place] [address] Abbi Choudhary M.D. [id number] (Bld) [Moles/Vol]29 mmol/PSuglgs09-23FezdafLogansport Memorial Hospital Comment on above:Order Comment: [facility] has implemented the eGFR calculation approach that does not have a coefficient for race that conforms to the NKF-ASN Task Force Recommendations.Performed By: #### [id number] ####[facility] [address] [place] [address] Abbi Choudhary M.D. 36D0 488674Mroqrncru [Mass/Vol]3.8 mg/dLNormal2.7-4.5[facility] on above:Order Comment: [facility] has implemented the eGFR calculation approach that does not have a coefficient for race that conforms to the NKF-ASN Task Force Recommendations.Performed By: #### 67227 ####[facility] [address] [place] [address] Abbi Choudhary M.D. [id number] [Moles/Vol]3.7 mmol/LNormal3.5-5.1MSt. Vincent Clay HospitalComcovenant medical center on above:Order Comment: [facility] has implemented the eGFR calculation approach that does not have a coefficient for race that conforms to the NKF-ASN Task Force Recommendations.Performed By: #### 08215 ####[facility] [address] [place], [place] [address] Abbi Choudhary M.D. [id number] [Moles/Vol]143 mmol/OObehyv067-690TezwmgKing's Daughters Hospital and Health Services on above:Order Comment: [facility] has implemented the eGFR calculation approach that does not have a coefficient for race that conforms to the NKF-ASN Task Force Recommendations.Performed By: #### [id number] ####[facility] [address] [place], [place] [address] Abbi Choudhary M.D. [id number] nitrogen [Mass/Vol]14 mg/dLNormal8-25Log[facility]port Memorial HospitalComment on above:Order Comment: [facility] has implemented the eGFR calculation approach that does not have a coefficient for race that conforms to the NKF-ASN Task Force Recommendations.Performed By: #### [id number] ####[facility] [address] [place], [place] [address] Abbi Choudhary M.D. [id number] nitrogen/Creatinine [Mass ratio]8.6 mg/mgLow10.0-20.0[facility] on above:Order Comment: [facility] has implemented the eGFR calculation approach that does not have a coefficient for race that conforms to the NKF-ASN Task Force Recommendations.Performed By: #### [id number] ####[facility] [address] [place], [place] [address] Abbi Choudhary M.D. [id number] function 2000 panel on 20-29-6617Anxqlem [Mass/Vol]3.2 g/dL3.2 - 5.2 g/dLOhioHealthAnion gap [Moles/Vol]11 mmol/L10 - 20 mmol/LOhioHealthCalcium [Mass/Vol]8.3 mg/dLLow8.4 - 10.2 mg/dLOhioHealthChloride [Moles/Vol]107 mmol/L98 - 108 mmol/LOhioHealth Creatinine [Mass/Vol]1.63 mg/dLHigh0.40 - 1.10 mg/dLOhioHealthGFR/1.73 sq M.predicted CKD-EPI (S/P/Bld) [Vol rate/Area]39Low- PINFOhioHealthGlucose [Mass/Vol]233 mg/sEGevr59 - 99 mg/dLOhioHealthHCO3 [Moles/Vol]29 mmol/L21 - 32 mmol/LOhioHealthInterpretation and review of laboratory resultsAbnormal OhioHealthPhosphate [Mass/Vol]3.8 mg/dL2.7 - 4.5 mg/dLOhioHealthPotassium [Moles/Vol]3.7 mmol/L3.5 - 5.1 mmol/LOhioHealthSodium [Moles/Vol]143 mmol/L135 - 145 mmol/LOhioHealthUrea nitrogen [Mass/Vol]14 mg/dL8 - 25 mg/dLOhioHealthUrea nitrogen/Creatinine [Mass ratio]8.6 mg/mgLow10.0 - 20.0OhioHealthGaioHealth OhioHealthXR Foot - left 3 Viewson 55-31-0199VO RISGE RISOhioHealthXR Foot - left 3 ViewsOrdered By: Augustine Mittal on 70-66-4823DtpoPjymze Work Phone: CBAtrium Health University City [phone] NRBC0.0 %NormalLogansport Memorial HospitalComment on above:Performed By: #### [id number] ####[facility] [address] [place] [address] Abbi Choudhary M.D. [id number] NRBC ABS COUNT0.00 K/mcL Normal0.00-0.00Log[facility]port [facility] HospitalComment on above:Performed By: #### [id number] ####[facility] [address] [place] [address] Abbi Choudhary M.D. 36D0 289919Rihlwzwuist distribution width (RBC) [Ratio]13.0 %Kqdzne64.6-14.8Log[facility]port Memorial HospitalComment on above:Performed By: #### [id number] ####[facility] [address] [place], [place] [address]Alisia Choudhary M.D. [id number] (Bld) [Volume fraction]27.2 %Low36.0-46.0[facility] HospitalComment on above: Performed By: #### [id number] ####[facility] [address] [place], [place] [address]Alisia Choudhary M.D. [id number] (Bld) [Mass/Vol]9.2 g/dLLow12.0-16.0[facility] HospitalComment on above:Performed By: #### [id number] ####[facility] [address] [place] [address] Abbi Choudhary M.D. [id number] (RBC) [Entitic mass]30.9 wrFimhug20.0-34.0[facility] HospitalComment on above: Performed By: #### [id number] ####[facility] [address] [place] [address] Abbi Choudhary M.D. [id number] (RBC) [Entitic vol]91.3 eCNfcfut00.0-100.0[facility] HospitalComment on above:Performed By: #### [id number] ####[facility] [address] [place] [address] Abbi Choudhary M.D. [id number] CORPUSCULAR HEMOGLOBIN CONC33.8 g/zBWcsnco03.0-37.0[facility] HospitalComment on above: Performed By: #### [id number] ####[facility] [address] [place] [address] Abbi Choudhary M.D. [id number] mean volume (Bld) [Entitic vol]8.8 fLLow 9.4-12.4Log[facility]port [facility] HospitalComment on above:Performed By: #### [id number] ####[facility] [address] [place] [address] Abbi Choudhary M.D. [id number] Platelets (Bld) [#/Vol]252 10*3/jKJlnmjc189-457ZabbhmLogansport Memorial HospitalComment on above:Performed By: #### [id number] ####[facility] [address] [place] [address] Abbi Choudhary M.D. [id number] (Bld) [#/Vol]2.98 10*6/uLLow4.00-5.20 [facility] HospitalComment on above:Performed By: #### [id number] ####[facility] [address] [place] [address] Abbi Choudhary M.D. [id number] (Bld) [#/Vol]6.99 10*3/uLNormal4.50-11.00[facility] HospitalComment on above: Performed By: #### [id number] ####[facility] [address] [place] [address] Abbi Choudhary M.D. [id number] panel Auto (Bld)on 01-61-3295Ahjwqpbqhdn distribution width (RBC) [Entitic vol]13 %11.6 - [...] [#/Vol]6.99 10*3/uLOhioHealthOhioHealthCT Foot - left WO contraston 59-26-9405XX RISGE RISOhioHealthCT Foot - left WO contrastOrdered By: Kavin Duncan on 84-03-0205TzcnPoeqjr Work Phone: Glucose (Bld) [Mass/Vol]on 01-16-3748Mminyfq [Mass/Vol]253 mg/yCUiyh30 - 99 mg/dLOhioHealthInterpretation and review of laboratory resultsAbnormalOhioHealthOhioHealthGlucose [Mass/Vol]92 mg/dL65 - 99 mg/dLOhioHealthInterpretation and review of laboratory resultsNormalOhioHealBrecksville VA / Crille HospitalOP NOTEon 54-57-3906CX NOTENoIndiana University Health Blackford HospitalPO GLUCOSE - RALSon 33-81-9112Mtyjehl [Mass/Vol]253 mg/qPGpqt31-55Rwdtqg[address] [place] [address] Comment on above:Performed By: #### [id number] ####[facility] [address] [place], [place] [address] Abbi Choudhary M.D. [id number] [Mass/Vol]92 mg/dLNormal 65-[address] [place], [place] [address]Comment on above:Performed By: #### [id number] ####[facility] [address] [place], [place] [address] Abbi Choudhary M.D. [id number] FUNCTION PANELon 30-43-7081Atvvjar [Mass/Vol]3.3 g/dLNormal3.2-5.2MSt. Vincent Clay HospitalComment on above:Order Comment: [facility] has implemented the eGFR calculation approach that does not have a coefficient for race that conforms to the NKF-ASN Task Force Recommendations.Performed By: #### [id number] ####[facility] [address] [place], [place] [address] Abbi Choudhary M.D. [id number] gap [Moles/Vol]12 mmol/AFurqbi03-76LsezlfLogansport Memorial Hospital Comment on above:Order Comment: [facility] has implemented the eGFR calculation approach that does not have a coefficient for race that conforms to the NKF-ASN Task Force Recommendations.Performed By: #### [id number] ####[facility] [address] [place], [place] [address] Abbi Choudhary M.D. 36D0 562186Ihtzfze [Mass/Vol]8.6 mg/dLNormal8.4-10.2MSt. Vincent Clay HospitalComcovenant medical center on above:Order Comment: [facility] has implemented the eGFR calculation approach that does not have a coefficient for race that conforms to the NKF-ASN Task Force Recommendations.Performed By: #### [id number] ####[facility] [address] [place], [place] [address] Abbi Choudhary M.D. [id number] [Moles/Vol]108 mmol/PXcvpbf99-364QrwnzvKing's Daughters Hospital and Health Services on above:Order Comment: [facility] has implemented the eGFR calculation approach that does not have a coefficient for race that conforms to the NKF-ASN Task Force Recommendations.Performed By: #### [id number] ####[facility] [address] [place], [place] [address] Abbi Choudhary M.D. [id number] [Mass/Vol]1.28 mg/dLHigh0.40-1.10[facility] on above:Order Comment: [facility] has implemented the eGFR calculation approach that does not have a coefficient for race that conforms to the NKF-ASN Task Force Recommendations.Performed By: #### [id number] ####[facility] [address] [place] [address] Abbi Choudhary M.D. [id number] mL/min/1.73 m2Low>=60 [facility] on above:Order Comment: [facility] has implemented the eGFR calculation approach that does not have a coefficient for race that conforms to the NKF-ASN Task Force Recommendations. Result Comment: Estimated GFR was calculated using the 2020 CKD-EPI creatinine equation.Performed By: #### [id number] ####[facility] [address] [place], [place] [address] Abbi Choudhary M.D. [id number] [Mass/Vol]162 mg/mQVizd35-74OxbevrIndiana University Health Methodist Hospital on above:Order Comment: [facility] has implemented the eGFR calculation approach that does not have a coefficient for race that conforms to the NKF-ASN Task Force Recommendations.Performed By: #### [id number] ####[facility] [address] [place], [place] [address] Abbi Choudhary M.D. [id number] (Bld) [Moles/Vol]27 mmol/OVyboev46-03CzsyqfLogansport Memorial Hospital Comment on above:Order Comment: [facility] has implemented the eGFR calculation approach that does not have a coefficient for race that conforms to the NKF-ASN Task Force Recommendations.Performed By: #### [id number] ####[facility] [address] [place] [address] Abbi Choudhary M.D. 36D0 810844Ovfdllstl [Mass/Vol]2.8 mg/dLNormal2.7-4.5[facility] on above:Order Comment: [facility] has implemented the eGFR calculation approach that does not have a coefficient for race that conforms to the NKF-ASN Task Force Recommendations.Performed By: #### [id number] ####[facility] [address] [place] [address] Abbi Choudhary M.D. [id number] [Moles/Vol]3.5 mmol/LNormal3.5-5.1MIndiana University Health Methodist Hospital on above:Order Comment: [facility] has implemented the eGFR calculation approach that does not have a coefficient for race that conforms to the NKF-ASN Task Force Recommendations.Performed By: #### [id number] ####[facility] [address] [place] [address] Abbi Choudhary M.D. [id number] [Moles/Vol]143 mmol/NHlpney540-463EaxawkKing's Daughters Hospital and Health Services on above:Order Comment: [facility] has implemented the eGFR calculation approach that does not have a coefficient for race that conforms to the NKF-ASN Task Force Recommendations.Performed By: #### [id number] ####[facility] [address] [place] [address] Abbi Choudhary M.D. [id number] nitrogen [Mass/Vol]14 mg/dLNormal8-25[facility] on above:Order Comment: [facility] has implemented the eGFR calculation approach that does not have a coefficient for race that conforms to the NKF-ASN Task Force Recommendations.Performed By: #### [id number] ####[facility] [address] [place] [address] Abbi Choudhary M.D. [id number] nitrogen/Creatinine [Mass ratio]10.9 mg/plFsrauq27.0-20.0[facility] HospitalComment on above:Order Comment: [facility] has implemented the eGFR calculation approach that does not have a coefficient for race that conforms to the NKF-ASN Task Force Recommendations.Performed By: #### [id number] ####[facility] [address] [place] [address] Abbi Choudhary M.D. [id number] function 2000 panel on 97-36-3723Arialew [Mass/Vol]3.3 g/dL3.2 - 5.2 g/dLOhioHealthAnion gap [Moles/Vol]12 mmol/L10 - 20 mmol/LOhioHealthCalcium [Mass/Vol]8.6 mg/dL8.4 - 10.2 mg/dLOhioHealthChloride [Moles/Vol]108 mmol/L98 - 108 mmol/LOhioHealth Creatinine [Mass/Vol]1.28 mg/dLHigh0.40 - 1.10 mg/dLOhioHealthGFR/1.73 sq M.predicted CKD-EPI (S/P/Bld) [Vol rate/Area]52Low- PINFOhioHealthGlucose [Mass/Vol]162 mg/dWOqyz35 - 99 mg/dLOhioHealthHCO3 [Moles/Vol]27 mmol/L21 - 32 mmol/LOhioHealthInterpretation and review of laboratory resultsAbnormal OhioHealthPhosphate [Mass/Vol]2.8 mg/dL2.7 - 4.5 mg/dLOhioHealthPotassium [Moles/Vol]3.5 mmol/L3.5 - 5.1 mmol/LOhioHealthSodium [Moles/Vol]143 mmol/L135 - 145 mmol/LOhioHealthUrea nitrogen [Mass/Vol]14 mg/dL8 - 25 mg/dLOhioHealthUrea nitrogen/Creatinine [Mass ratio]10.9 mg/mg10.0 - 20.0OhioHealthOhioHealth [facility] HospitalSURGICAL SITE AEROBIC CULTUREon 54-25-3590OEOTQFGO SITE AEROBIC CULTUREAEROBIC CULTURE STAPHYLOCOCCUS EPIDERMIDIS Rare growth Staphylococcus epidermidis See susceptibility from same source/same date. GRAM STAIN RESULT Many WBC Many RBC No Organisms SeenAbMedical Center of Southern IndianaComment on above:Performed By: #### [id number] ####[facility] [address] [place] [address] Swapnil Brewer M.D. [id number] EXAMon 88-56-7689EBHSNL EXAMNoIndiana University Health Blackford HospitalComment on above:Performed By: #### [id number] ####[facility] [address] [place], [place] [address] Abbi Choudhary M.D. [id number] [facility]ORIAL [facility] [address] [place] [address] Swapnil Brewer M.D. [id number] Aerobic And Anaerobic CultureOrdered By: Gayla Cook on 78-57-4464Hvoijixb identified Aer cx Nom (Unsp spec)No Anaerobic Growth after 5 daysOhioHealthBacteria identified Aer cx Nom (Unsp spec)Light Growth Staphylococcus aureusAbnormalOhioHealth Bacteria identified Aer cx Nom (Unsp spec)Light Growth Normal Skin Eric OhioHealthInterpretation and review of laboratory resultsAbnormalOhioHealth Microscopic observation Gram stain Nom (Unsp spec)No WBC SeenOhioHealth Microscopic observation Gram stain Nom (Unsp spec)No Organisms SeenOhioHealth [facility] HospitalXR FOOT LEFT 3+ VIEWS (STANDARD)on 65-33-0249QD FOOT LEFT 3+ VIEWS (STANDARD)[facility] HospitalComment on above:Order Comment: Injury/Trauma or Illness?:Illness/OtherHow long have you had these symptoms (acute/chronic)?:AcuteReason for exam?:Status post amputation left hallux distal phalanxHistory of cancer?:uSurgeries, chemotherapy, or radiation?:pacemakerType of Exam?:InitialAdditional signs and symptoms?:Status post amputation left hallux distal phalanxXR Foot - left 3 Viewson 71-43-5420Dnrfohqzl Study observation (narrative)OhioHealthCBAtrium Health University City 29-20-0224UXWX NRBC0.0 %[facility] HospitalComment on above:Performed By: #### [id number] ####[facility] [address] [place], [place] [address] Abbi Choudhary M.D. [id number] NRBC ABS COUNT0.00 K/mcLNormal0.00-0.00[facility] HospitalComment on above:Performed By: #### [id number] ####[facility] [address] [place] [address] Abbi Choudhary M.D. [id number] distribution width (RBC) [Ratio]12.6 %Byzdtn59.6-14.8 [facility] HospitalComment on above:Performed By: #### [id number] ####[facility] [address] [place] [address] Abbi Choudhary M.D. [id number] (Bld) [Volume fraction]26.9 %Low36.0-46.0[facility] HospitalComment on above:Performed By: #### [id number] ####[facility] [address] [place] [address] Abbi Choudhary M.D. [id number] (Bld) [Mass/Vol]9.1 g/dLLow12.0-16.0 [facility] HospitalComment on above:Performed By: #### [id number] ####[facility] [address] [place] [address] Abbi Choudhary M.D. [id number] (RBC) [Entitic mass]31.8 gnJnlesc97.0-34.0[facility] HospitalComment on above: Performed By: #### [id number] ####[facility] [address] [place] [address] Abbi Choudhary M.D. [id number] (RBC) [Entitic vol]94.1 bHItjrvo37.0-100.0[facility] HospitalComment on above:Performed By: #### 94742 ####[facility] [address] [place] [address] Abbi Choudhary M.D. [id number] CORPUSCULAR HEMOGLOBIN CONC33.8 g/aVYqpqru75.0-37.0[facility] HospitalComment on above: Performed By: #### [id number] ####[facility] [address] [place] [address] Abib Choudhary M.D. [id number] mean volume (Bld) [Entitic vol]9.6 fLNormal 9.4-12.4[facility] HospitalComment on above:Performed By: #### [id number] ####[facility] [address] [place] [address] Abbi Choudhary M.D. [id number] Platelets (Bld) [#/Vol]266 10*3/hHCcyhwg634-222NxfswxLogansport Memorial HospitalComment on above:Performed By: #### [id number] ####[facility] [address] [place] [address] Abbi Choudhary M.D. [id number] (Bld) [#/Vol]2.86 10*6/uLLow4.00-5.20 [facility] HospitalComcovenant medical center on above:Performed By: #### [id number] ####[facility] [address] [place] [address] Abbi Choudhary M.D. [id number] (Bld) [#/Vol]6.83 10*3/uLNormal4.50-11.00[facility] HospitalComcovenant medical center on above: Performed By: #### 04520 ####[facility] [address] [place] [address] Abbi Choudhary M.D. [id number] panel Auto (Bld)on 67-16-0376Tggpjjeruxx distribution width (RBC) [Entitic vol]12.6 %11.6 - [...] WITHOUT CONTRASTon 03-31-2024 CT ABDOMEN PELVIS WITHOUT CONTRASTNoIndiana University Health Blackford HospitalComment on above: Order Comment: Injury/Trauma or Illness?:Illness/OtherHow long have you had these symptoms (acute/chronic)?:AcuteReason for exam?:Abdominal/flank pain, stone suspectedType of Exam?:InitialAdditional signs and symptoms?:Abdominal/flank pain, stone suspectedCT Abdomen and Pelvis WO contrast on 72-54-8757NM RISGE RISGaioHealthRadiology Study observation (narrative) [facility] HospitalCT Abdomen and Pelvis WO contrastOrdered By: Lawrence Coronado on 77-68-5146LlqmNonjnl Work Phone: CT FOOT LEFT WITHOUT CONTRASTon 88-31-3295TU FOOT LEFT WITHOUT CONTRASTIndiana University Health Ball Memorial HospitalComment on above:Order Comment: Injury/Trauma or Illness?:Illness/OtherHow long have you had these symptoms (acute/chronic)?:AcuteReason for exam?:osteomyelitisType of Exam?:InitialAdditional signs and symptoms?:footpainCT Foot - left WO contraston 91-87-5795Cdbxufqbh Study observation (narrative)[facility] HospitalRENAL FUNCTION PANEL on 80-98-8347Dbewxen [Mass/Vol]3.1 g/dLLow3.2-5.2[facility] HospitalComment on above:Order Comment: [facility] has implemented the eGFR calculation approach that does not have a coefficient for race that conforms to the NKF-ASN Task Force Recommendations.Performed By: #### 38076 ####[facility] [address] [place], [place] [address] Abbi Choudhary M.D. [id number] gap [Moles/Vol]9 mmol/YXjt02-92XdhedfKing's Daughters Hospital and Health Services on above:Order Comment: [facility] has implemented the eGFR calculation approach that does not have a coefficient for race that conforms to the NKF-ASN Task Force Recommendations.Performed By: #### [id number] ####[facility] [address] [place], [place] [address] Abbi Choudhary M.D. [id number] [Mass/Vol]8.9 mg/dLNormal8.4-10.2MIndiana University Health Methodist Hospital on above:Order Comment: [facility] has implemented the eGFR calculation approach that does not have a coefficient for race that conforms to the NKF-ASN Task Force Recommendations.Performed By: #### 64622 ####[facility] [address] [place], [place] [address] Abbi Choudhary M.D. [id number] [Moles/Vol]109 mmol/L Rybe25-362TakaoeKing's Daughters Hospital and Health Services on above:Order Comment: [facility] has implemented the eGFR calculation approach that does not have a coefficient for race that conforms to the NKF-ASN Task Force Recommendations.Performed By: #### [id number] ####[facility] [address] [place], [place] [address] Abbi Choudhary M.D. [id number] [Mass/Vol]1.22 mg/dLHigh 0.40-1.10[facility] on above:Order Comment: [facility] has implemented the eGFR calculation approach that does not have a coefficient for race that conforms to the NKF-ASN Task Force Recommendations.Performed By: #### 89637 ####[facility] [address] [place], [place] [address] Abbi Choudhary M.D. [id number] mL/min/1.73 m2Low>=60[facility] on above:Order Comment: [facility] has implemented the eGFR calculation approach that does not have a coefficient for race that conforms to the NKF-ASN Task Force Recommendations.Result Comment: Estimated GFR was calculated using the 2020 CKD-EPI creatinine equation. Performed By: #### [id number] ####[facility] [address] [place], [place] [address] Abbi Choudhary M.D. [id number] [Mass/Vol]139 mg/aCHzkw46-77AyfdumIndiana University Health Methodist Hospital on above:Order Comment: [facility] has implemented the eGFR calculation approach that does not have a coefficient for race that conforms to the NKF-ASN Task Force Recommendations.Performed By: #### [id number] ####[facility] [address] [place] [address] Abbi Choudhary M.D. [id number] (Bld) [Moles/Vol]28 mmol/YYnpqvj67-26ElesqlLogansport Memorial Hospital Comment on above:Order Comment: [facility] has implemented the eGFR calculation approach that does not have a coefficient for race that conforms to the NKF-ASN Task Force Recommendations.Performed By: #### 90754 ####[facility] [address] [place], [place] [address] Abbi Choudhary M.D. 36D0 802355Bjmpyzxni [Mass/Vol]2.7 mg/dLNormal2.7-4.5[facility] on above:Order Comment: [facility] has implemented the eGFR calculation approach that does not have a coefficient for race that conforms to the NKF-ASN Task Force Recommendations.Performed By: #### [id number] ####[facility] [address] [place], [place] [address] Abbi Choudhary M.D. [id number] [Moles/Vol]3.4 mmol/LLow3.5-5.1MIndiana University Health Methodist Hospital on above:Order Comment: [facility] has implemented the eGFR calculation approach that does not have a coefficient for race that conforms to the NKF-ASN Task Force Recommendations.Performed By: #### [id number] ####[facility] [address] [place], [place] [address] Abbi Choudhary M.D. [id number] [Moles/Vol]143 mmol/MMllupl885-753UhunfoKing's Daughters Hospital and Health Services on above:Order Comment: [facility] has implemented the eGFR calculation approach that does not have a coefficient for race that conforms to the NKF-ASN Task Force Recommendations.Performed By: #### [id number] ####[facility] [address] [place], [place] [address] Abbi Choudhary M.D. [id number] nitrogen [Mass/Vol]20 mg/dLNormal8-25[facility] on above:Order Comment: [facility] has implemented the eGFR calculation approach that does not have a coefficient for race that conforms to the NKF-ASN Task Force Recommendations.Performed By: #### [id number] ####[facility] [address] [place], [place] [address] Abbi Choudhary M.D. [id number] nitrogen/Creatinine [Mass ratio]16.4 mg/vyLhmyno61.0-20.0[facility] on above:Order Comment: [facility] has implemented the eGFR calculation approach that does not have a coefficient for race that conforms to the NKF-ASN Task Force Recommendations.Performed By: #### [id number] ####[facility] [address] [place], [place] [address] Abbi Choudhary M.D. [id number] function 2000 panel on 94-47-5369Wwqascm [Mass/Vol]3.1 g/dLLow3.2 - 5.2 g/dLOhioHealthAnion gap [Moles/Vol]9 mmol/LLow10 - 20 mmol/LOhioHealthCalcium [Mass/Vol]8.9 mg/dL8.4 - 10.2 mg/dLOhioHealthChloride [Moles/Vol]109 mmol/LHigh98 - 108 mmol/LOhioHealth Creatinine [Mass/Vol]1.22 mg/dLHigh0.40 - 1.10 mg/dLOhioHealthGFR/1.73 sq M.predicted CKD-EPI (S/P/Bld) [Vol rate/Area]56Low- PINFOhioHealthGlucose [Mass/Vol]139 mg/xRKyst97 - 99 mg/dLOhioHealthHCO3 [Moles/Vol]28 mmol/L21 - 32 mmol/LOhioHealthInterpretation and review of laboratory resultsAbnormal OhioHealthPhosphate [Mass/Vol]2.7 mg/dL2.7 - 4.5 mg/dLOhioHealthPotassium [Moles/Vol]3.4 mmol/LLow3.5 - 5.1 mmol/LOhioHealthSodium [Moles/Vol]143 mmol/L 135 - 145 mmol/LOhioHealthUrea nitrogen [Mass/Vol]20 mg/dL8 - 25 mg/dLOhioHealth Urea nitrogen/Creatinine [Mass ratio]16.4 mg/mg10.0 - 20.0OhioHealthOhioHealth OhioHealthBacteria identified Cx Nom (Bld)on 49-15-7461Ialrdishnektwn and review of laboratory resultsNormalOhioHealthOhioHealthCBCon 03-76-6127DKYY NRBC0.0 % NormalLogansport Memorial HospitalComment on above:Performed By: #### [id number] ####[facility] [address] [address] Abbi Choudhary M.D. [id number] NRBC ABS COUNT0.00 K/mcLNormal0.00-0.00Logansport Memorial HospitalComment on above: Performed By: #### [id number] ####[facility] [address] [address] Abbi Choudhary M.D. [id number] distribution width (RBC) [Ratio]12.6 % Zfuozy88.6-14.8Logansport Memorial HospitalComment on above:Performed By: #### [id number] ####[facility] [address] [place], [place] [address] Abbi Choudhary M.D. 36D0 159626Odxetcfpdy (Bld) [Volume fraction]29.7 %Low36.0-46.0Log[facility]port Memorial HospitalComment on above:Performed By: #### [id number] ####[facility] [address] [place], [place] [address] Abbi Choudhary M.D. [id number] (Bld) [Mass/Vol]9.4 g/dLLow12.0-16.0Log[facility]port Memorial HospitalComment on above:Performed By: #### [id number] ####[facility] [address] [address] Abbi Choudhary M.D. [id number] (RBC) [Entitic mass]30.2 ojLvmscb82.0-34.0[facility] Comment on above:Performed By: #### [id number] ####[facility] [address] [address] Abbi Choudhary M.D. [id number] (RBC) [Entitic vol]95.5 fLNormal 80.0-100.0Log[facility]port [facility] HospitalComment on above:Performed By: #### [id number] ####[facility] [address] [address] Abbi Choudhary M.D. 36D0 [id number] CORPUSCULAR HEMOGLOBIN CONC31.6 g/wPItvrjl88.0-37.0Log[facility]port [facility] HospitalComment on above:Performed By: #### [id number] ####[facility] [address] [address] Abbi Choudhary M.D. [id number] mean volume (Bld) [Entitic vol]9.6 fLNormal9.4-12.4Log[facility]port Memorial HospitalComment on above: Performed By: #### 67960 ####[facility] [address] [address] Abbi Choudhary M.D. [id number] (Bld) [#/Vol]263 10*3/zPQyytsk781-191XknkwuLogansport Memorial HospitalComment on above:Performed By: #### [id number] ####[facility] [address] [address] Abbi Choudhary M.D. [id number] (Bld) [#/Vol]3.11 10*6/uLLow4.00-5.20[facility] HospitalComment on above:Performed By: #### [id number] ####[facility] [address] [place], [place] [address] Abbi Choudhary M.D. [id number] (Bld) [#/Vol]6.90 10*3/uLNormal4.50-11.00Log[facility] HospitalComment on above:Performed By: #### [id number] ####[facility] [address] [place], [place] [address] Abbi Choudhary M.D. [id number] panel Auto (Bld)on 08-47-3275Ykiylidvyvw distribution width (RBC) [Entitic vol]12.6 %11.6 - 14.8 % [facility] HospitalHematocrit (Bld) [Volume fraction]29.7 %Low36.0 - 46.0 %[facility] Hemoglobin (Bld) [Mass/Vol]9.4 g/dLLow12.0 - 16.0 g/dLOhioHealthInterpretation and review of laboratory resultsAbnormalOhioHealthMCH (RBC) [Entitic mass]30.2 pg26.0 - 34.0 pgOhioHealthMCHC (RBC) [Mass/Vol]31.6 g/dL31.0 - 37.0 g/dL [facility] HospitalMCV (RBC) [Entitic vol]95.5 fL80.0 - 100.0 fLOhioHealthNucleated RBC (Bld) [#/Vol]0 10*3/uLOhioHealthNucleated RBC/100 WBC (Bld) [Ratio]0 %[facility] Platelet mean volume (Bld) [Entitic vol]9.6 fL9.4 - 12.4 fLOhioHealthPlatelets (Bld) [#/Vol]263 10*3/uLOhioHealthRBC (Bld) [#/Vol]3.11 10*6/uLLowOhioHealthWBC (Bld) [#/Vol]6.9 10*3/uLOhioHealthOhioHealthCONSULTon 75-87-6738FYKEAVOYisdzyCommunity Hospital NorthGlucose (Bld) [Mass/Vol]on 64-48-8989Dvinmus [Mass/Vol] 250 mg/hBQeqz55 - 99 mg/dLOhioHealthInterpretation and review of laboratory resultsAbnormalOhioHealthGaioHealthGlucose [Mass/Vol]102 mg/jJKxxb02 - 99 mg/dL OhioHealthInterpretation and review of laboratory resultsAbnormalOhioHealth OhioHealthGlucose [Mass/Vol]183 mg/cWYcfy98 - 99 mg/dLOhioHealthInterpretation and review of laboratory resultsAbnormalOhioHealthGaioHealthGlucose [Mass/Vol] 285 mg/bTNgqe49 - 99 mg/dLOhioHealthInterpretation and review of laboratory resultsAbnormBrown Memorial HospitalioHealthLaboratory - Microbiology and Antimicrobial susceptibilityon 91-91-0825Kldxwfai identified Cx Nom (Bld)No Growth after 5 daysOhioEast [place] [facility] - [facility] 34-53-0422Bljpqtt [Mass/Vol]250 mg/dLHigh 65-99MSt. Vincent Clay HospitalComment on above:Performed By: #### [id number] ####[facility] [address] [address] Abbi Choudhary M.D. [id number] [Mass/Vol]102 mg/aBBgis95-39EtbvcrSt. Vincent Clay HospitalComment on above:Performed By: #### 88490 ####[facility] [address] [address] Abbi Choudhary M.D. [id number] [Mass/Vol]183 mg/tBBndm44-71MznprhSt. Vincent Clay Hospital Comment on above:Performed By: #### [id number] ####[facility] [address] [place], [place] [address] Abbi Choudhary M.D. [id number] [Mass/Vol]285 mg/kXVupg50-91 [facility] HospitalComment on above:Performed By: #### 63843 ####[facility] [address] [address] Abbi Choudhary M.D. [id number] FUNCTION PANELon 42-66-8903Yilzdsr [Mass/Vol]3.3 g/dLNormal3.2-5.2MSt. Vincent Clay HospitalComment on above:Order Comment: [facility] has implemented the eGFR calculation approach that does not have a coefficient for race that conforms to the NKF-ASN Task Force Recommendations.Performed By: #### [id number] ####[facility] [address] [place], [place] [address] Abbi Choudhary M.D. [id number] gap [Moles/Vol]11 mmol/IJfqifr42-82RlcwubLogansport Memorial Hospital Comment on above:Order Comment: [facility] has implemented the eGFR calculation approach that does not have a coefficient for race that conforms to the NKF-ASN Task Force Recommendations.Performed By: #### 68436 ####[facility] [address] [place], [place] [address] Abbi Choudhary M.D. 36D0 505674Smdovyf [Mass/Vol]9.1 mg/dLNormal8.4-10.2MSt. Vincent Clay HospitalComment on above:Order Comment: [facility] has implemented the eGFR calculation approach that does not have a coefficient for race that conforms to the NKF-ASN Task Force Recommendations.Performed By: #### [id number] ####[facility] [address] [place], [place] [address] Abbi Choudhary M.D. [id number] [Moles/Vol]108 mmol/WLnuhai47-545PzgbdhLogansport Memorial HospitalComment on above:Order Comment: [facility] has implemented the eGFR calculation approach that does not have a coefficient for race that conforms to the NKF-ASN Task Force Recommendations.Performed By: #### [id number] ####[facility] [address] [place], [place] [address] Abbi Choudhary M.D. [id number] [Mass/Vol]1.67 mg/dLHigh0.40-1.10[facility] HospitalComcovenant medical center on above:Order Comment: [facility] has implemented the eGFR calculation approach that does not have a coefficient for race that conforms to the NKF-ASN Task Force Recommendations.Performed By: #### [id number] ####[facility] [address] [place], [place] [address] Abbi Choudhary M.D. [id number] mL/min/1.73 m2Low>=60 [facility] on above:Order Comment: [facility] has implemented the eGFR calculation approach that does not have a coefficient for race that conforms to the NKF-ASN Task Force Recommendations. Result Comment: Estimated GFR was calculated using the 2020 CKD-EPI creatinine equation.Performed By: #### 75983 ####[facility] [address] [address] Abbi Choudhary M.D. [id number] [Mass/Vol]301 mg/wNUspq91-73MrrtphIndiana University Health Methodist Hospital on above:Order Comment: [facility] has implemented the eGFR calculation approach that does not have a coefficient for race that conforms to the NKF-ASN Task Force Recommendations.Performed By: #### 96877 ####[facility] [address] [address] Abbi Choudhary M.D. [id number] (Bld) [Moles/Vol]24 mmol/SAsydta38-66YqmhnxLogansport Memorial Hospital Comment on above:Order Comment: [facility] has implemented the eGFR calculation approach that does not have a coefficient for race that conforms to the NKF-ASN Task Force Recommendations.Performed By: #### [id number] ####[facility] [address] [address] Abbi Choudhary M.D. 36D0 102377Sdtmzlvnw [Mass/Vol]3.0 mg/dLNormal2.7-4.5[facility] on above:Order Comment: [facility] has implemented the eGFR calculation approach that does not have a coefficient for race that conforms to the NKF-ASN Task Force Recommendations.Performed By: #### [id number] ####[facility] [address] [address] Abbi Choudhary M.D. [id number] [Moles/Vol]4.1 mmol/LNormal3.5-5.1MIndiana University Health Methodist Hospital on above:Order Comment: [facility] has implemented the eGFR calculation approach that does not have a coefficient for race that conforms to the NKF-ASN Task Force Recommendations.Performed By: #### [id number] ####[facility] [address] [place], [place] [address] Abbi Choudhary M.D. [id number] [Moles/Vol]139 mmol/INzxqhv271-150YhtuwpKing's Daughters Hospital and Health Services on above:Order Comment: [facility] has implemented the eGFR calculation approach that does not have a coefficient for race that conforms to the NKF-ASN Task Force Recommendations.Performed By: #### [id number] ####[facility] [address] [place], [place] [address] Abbi Choudhary M.D. [id number] nitrogen [Mass/Vol]29 mg/dLHigh8-25[facility] on above:Order Comment: [facility] has implemented the eGFR calculation approach that does not have a coefficient for race that conforms to the NKF-ASN Task Force Recommendations.Performed By: #### [id number] ####[facility] [address] [place], [place] [address] Abbi Choudhary M.D. [id number] nitrogen/Creatinine [Mass ratio]17.4 mg/qnGhvboi82.0-20.0[facility] on above:Order Comment: [facility] has implemented the eGFR calculation approach that does not have a coefficient for race that conforms to the NKF-ASN Task Force Recommendations.Performed By: #### 48266 ####[facility] [address] [place], [place] [address] Abbi Choudhary M.D. [id number] function 2000 panel on 24-35-5587Utkelwf [Mass/Vol]3.3 g/dL3.2 - 5.2 g/dLOhioHealthAnion gap [Moles/Vol]11 mmol/L10 - 20 mmol/LOhioHealthCalcium [Mass/Vol]9.1 mg/dL8.4 - 10.2 mg/dLOhioHealthChloride [Moles/Vol]108 mmol/L98 - 108 mmol/LOhioHealth Creatinine [Mass/Vol]1.67 mg/dLHigh0.40 - 1.10 mg/dLOhioHealthGFR/1.73 sq M.predicted CKD-EPI (S/P/Bld) [Vol rate/Area]38Low- PINFOhioHealthGlucose [Mass/Vol]301 mg/vEGhuf67 - 99 mg/dLOhioHealthHCO3 [Moles/Vol]24 mmol/L21 - 32 mmol/LOhioHealthInterpretation and review of laboratory resultsAbnormal OhioHealthPhosphate [Mass/Vol]3 mg/dL2.7 - 4.5 mg/dLOhioHealthPotassium [Moles/Vol]4.1 mmol/L3.5 - 5.1 mmol/LOhioHealthSodium [Moles/Vol]139 mmol/L135 - 145 mmol/LOhioHealthUrea nitrogen [Mass/Vol]29 mg/dLHigh8 - 25 mg/dLOhioHealth Urea nitrogen/Creatinine [Mass ratio]17.4 mg/mg10.0 - 20.0OhioHealthOhioHealth OhioHealthWound Aerobic And Anaerobic CultureOrdered By: Zayda Smith on 71-69-7775Gksvoenv identified Aer cx Nom (Unsp spec)No Growth after 5 days OhioHealthMicroscopic observation Gram stain Nom (Unsp spec)Few WBCOhioHealth Microscopic observation Gram stain Nom (Unsp spec)Many RBCOhioHealthMicroscopic observation Gram stain Nom (Unsp spec)No Organisms SeenOhioHealthOhioHealthCBCon 83-24-4927RRCX NRBC0.0 %NormalLogansport Memorial HospitalComment on above:Performed By: #### [id number] ####[facility] [address] [place], [place] [address] Abbi Choudhary M.D. [id number] NRBC ABS COUNT0.00 K/mcLNormal0.00-0.00[facility] HospitalComment on above:Performed By: #### [id number] ####[facility] [address] [place], [place] [address] Abbi Choudhary M.D. [id number] distribution width (RBC) [Ratio]12.7 %Njjacw59.6-14.8Log[facility]port Memorial HospitalComment on above: Performed By: #### 90635 ####[facility] [address] [place], [place] [address] Abbi Choudhary M.D. [id number] (Bld) [Volume fraction]28.0 %Low36.0-46.0 [facility] HospitalComment on above:Performed By: #### [id number] ####[facility] [address] [address] Abbi Choudhary M.D. [id number] (Bld) [Mass/Vol]8.8 g/dLLow12.0-16.0[facility] HospitalComment on above: Performed By: #### [id number] ####[facility] [address] [address] Abbi Choudhary M.D. [id number] (RBC) [Entitic mass]30.6 qeDtseqk66.0-34.0[facility] HospitalComment on above:Performed By: #### [id number] ####[facility] [address] [address] Abbi Choudhary M.D. [id number] (RBC) [Entitic vol]97.2 hIArblyj58.0-100.0[facility] HospitalComment on above: Performed By: #### 33031 ####[facility] [address] [address] Abbi Choudhary M.D. [id number] CORPUSCULAR HEMOGLOBIN CONC31.4 g/dLNormal 31.0-37.0[facility] HospitalComment on above:Performed By: #### 75365 ####[facility] [address] [address] Abbi Choudhary M.D. 36D0 [id number] mean volume (Bld) [Entitic vol]9.5 fLNormal9.4-12.4[facility] HospitalComment on above:Performed By: #### 79567 ####[facility] [address] [address] Abbi Choudhary M.D. [id number] (Bld) [#/Vol]264 10*3/mQKnqhbp032-669VpgyaaLogansport Memorial HospitalComment on above:Performed By: #### [id number] ####[facility] [address] [place], [place] [address] Abbi Choudhary M.D. [id number] (Bld) [#/Vol]2.88 10*6/uLLow4.00-5.20[facility] Comment on above:Performed By: #### [id number] ####[facility] [address] [place], [place] [address] Abbi Choudhary M.D. [id number] (Bld) [#/Vol]7.18 10*3/uLNormal 4.50-11.00[facility] HospitalComment on above:Performed By: #### 74761 ####[facility] [address] [address] Abbi Choudhary M.D. 36D0 [id number] panel Auto (Bld)on 38-19-0850Dqfyaadawpr distribution width (RBC) [Entitic vol]12.7 %11.6 - [...] 10*3/uLOhioHealthRBC (Bld) [#/Vol] 2.88 10*6/uLLowOhioHealthWBC (Bld) [#/Vol]7.18 10*3/uLOhioHealthOhioAkron Children'S Hospital Glucose (Bld) [Mass/Vol]on 71-18-0236Xhvzwod [Mass/Vol]245 mg/oNJbkc12 - 99 mg/dLOhioHealthInterpretation and review of laboratory resultsAbnormRegional Medical Center OhioHealthGlucose [Mass/Vol]172 mg/nEUtfv70 - 99 mg/dLOhioHealthInterpretation and review of laboratory resultsAbnormalOCleveland Clinic Medina HospitalioHealthGlucose [Mass/Vol] 177 mg/rTSyxz20 - 99 mg/dLOhioHealthInterpretation and review of laboratory resultsAbnormalOhiPAealWVUMedicine Barnesville HospitalioHealthGlucose [Mass/Vol]186 mg/mLXuxm76 - 99 mg/dL OhioHealthInterpretation and review of laboratory resultsAbnormWVUMedicine Barnesville Hospitaleal OhioHealthGlucose [Mass/Vol]268 mg/iFUsgb79 - 99 mg/dLOhioHealthInterpretation and review of laboratory resultsAbnoPremier Health [facility] GLUCOSE [facility] 39-41-1826Kejllcs [Mass/Vol]245 mg/tRWxxs69-05Exgeyl [facility] HospitalComment on above:Performed By: #### [id number] ####[facility] [address] [place], [place] [address] Abbi Choudhary M.D. [id number] [Mass/Vol]172 mg/mIBpyp40-17Jutwiv [facility] HospitalComment on above:Performed By: #### [id number] ####[facility] [address] [place], [place] [address] Abbi Choudhary M.D. [id number] [Mass/Vol]177 mg/tENkhd52-96QqnmjzSt. Vincent Clay HospitalComment on above:Performed By: #### 57899 ####[facility] [address] [place], [place] [address] Abbi Choudhary M.D. [id number] [Mass/Vol]186 mg/fDKeex57-57FwwpuvSt. Vincent Clay Hospital Comment on above:Performed By: #### [id number] ####[facility] [address] [place], [place] [address] Abbi Choudhary M.D. [id number] [Mass/Vol]268 mg/yASkfq83-64 [facility] HospitalComment on above:Performed By: #### 14159 #### [facility] [address] [place], [place] Julio Choudhary M.D. [id number] FUNCTION PANELon 38-00-6043Ubxkqnm [Mass/Vol]3.0 g/dLLow3.2-5.2MSt. Vincent Clay HospitalComment on above:Order Comment: [facility] has implemented the eGFR calculation approach that does not have a coefficient for race that conforms to the NKF-ASN Task Force Recommendations.Performed By: #### [id number] #### [facility] [address] [address] Abbi Choudhary M.D. [id number] gap [Moles/Vol]14 mmol/KHuzpsv41-43PvhbqgLogansport Memorial Hospital Comment on above:Order Comment: [facility] has implemented the eGFR calculation approach that does not have a coefficient for race that conforms to the NKF-ASN Task Force Recommendations.Performed By: #### [id number] #### [facility] [address] [place], [place] [address] Abbi Choudhary M.D. 36D0 440273Anbcitx [Mass/Vol]8.7 mg/dLNormal8.4-10.2MIndiana University Health Methodist Hospital on above:Order Comment: [facility] has implemented the eGFR calculation approach that does not have a coefficient for race that conforms to the NKF-ASN Task Force Recommendations.Performed By: #### 94254 #### [facility] [address] [place], [place] [address] Abbi Choudhary M.D. [id number] [Moles/Vol]108 mmol/STfeztu52-504ZuczkoLogansport Memorial HospitalComment on above:Order Comment: [facility] has implemented the eGFR calculation approach that does not have a coefficient for race that conforms to the NKF-ASN Task Force Recommendations.Performed By: #### 79731 ####[facility] [address] [place], [place] [address] Abbi Choudhary M.D. [id number] [Mass/Vol]2.19 mg/dLHigh0.40-1.10[facility] Hospital of Orange Countyment on above:Order Comment: [facility] has implemented the eGFR calculation approach that does not have a coefficient for race that conforms to the NKF-ASN Task Force Recommendations.Performed By: #### [id number] ####[facility] [address] [address] Abbi Choudhary M.D. [id number] mL/min/1.73 m2Low>=60 [facility] on above:Order Comment: [facility] has implemented the eGFR calculation approach that does not have a coefficient for race that conforms to the NKF-ASN Task Force Recommendations. Result Comment: Estimated GFR was calculated using the 2020 CKD-EPI creatinine equation.Performed By: #### 37935 ####[facility] [address] [address] Abbi Choudhary M.D. [id number] [Mass/Vol]288 mg/lXWrhd77-59SlhrbdIndiana University Health Methodist Hospital on above:Order Comment: [facility] has implemented the eGFR calculation approach that does not have a coefficient for race that conforms to the NKF-ASN Task Force Recommendations.Performed By: #### 23434 ####[facility] [address] [address] Abbi Choudhary M.D. [id number] (Bld) [Moles/Vol]20 mmol/JHao54-24YogrclLogansport Memorial Hospital Comment on above:Order Comment: [facility] has implemented the eGFR calculation approach that does not have a coefficient for race that conforms to the NKF-ASN Task Force Recommendations.Performed By: #### 50546 ####[facility] [address] [address] Abbi Choudhary M.D. 36D0 [id number] [Mass/Vol]4.1 mg/dLNormal2.7-4.5[facility] on above:Order Comment: [facility] has implemented the eGFR calculation approach that does not have a coefficient for race that conforms to the NKF-ASN Task Force Recommendations.Performed By: #### [id number] ####[facility] [address] [address] Abbi Choudhary M.D. [id number] [Moles/Vol]4.8 mmol/LNormal3.5-5.1MIndiana University Health Methodist Hospital on above:Order Comment: [facility] has implemented the eGFR calculation approach that does not have a coefficient for race that conforms to the NKF-ASN Task Force Recommendations.Performed By: #### [id number] ####[facility] [address] [address] Abbi Choudhary M.D. [id number] [Moles/Vol]137 mmol/MQkbvbv090-027IytipdKing's Daughters Hospital and Health Services on above:Order Comment: [facility] has implemented the eGFR calculation approach that does not have a coefficient for race that conforms to the NKF-ASN Task Force Recommendations.Performed By: #### [id number] ####[facility] [address] [address] Abbi Choudhary M.D. [id number] nitrogen [Mass/Vol]36 mg/dLHigh8-25[facility] on above:Order Comment: [facility] has implemented the eGFR calculation approach that does not have a coefficient for race that conforms to the NKF-ASN Task Force Recommendations.Performed By: #### 63729 ####[facility] [address] [address] Abbi Choudhary M.D. [id number] nitrogen/Creatinine [Mass ratio]16.4 mg/buDcwiuk65.0-20.0[facility] on above:Order Comment: [facility] has implemented the eGFR calculation approach that does not have a coefficient for race that conforms to the NKF-ASN Task Force Recommendations.Performed By: #### [id number] ####[facility] [address] [address] Abbi Choudhary M.D. [id number] function 2000 panel on 51-45-7886Opmpzdl [Mass/Vol]3 g/dLLow3.2 - 5.2 g/dLOhioHealthAnion gap [Moles/Vol]14 mmol/L10 - 20 mmol/LOhioHealthCalcium [Mass/Vol]8.7 mg/dL8.4 - 10.2 mg/dLOhioHealthChloride [Moles/Vol]108 mmol/L98 - 108 mmol/LOhioHealth Creatinine [Mass/Vol]2.19 mg/dLHigh0.40 - 1.10 mg/dLOhioHealthGFR/1.73 sq M.predicted CKD-EPI (S/P/Bld) [Vol rate/Area]28Low- PINFOhioHealthGlucose [Mass/Vol]288 mg/cIYsge80 - 99 mg/dLOhioHealthHCO3 [Moles/Vol]20 mmol/LLow21 - 32 mmol/LOhioHealthInterpretation and review of laboratory resultsAbnormal OhioHealthPhosphate [Mass/Vol]4.1 mg/dL2.7 - 4.5 mg/dLOhioHealthPotassium [Moles/Vol]4.8 mmol/L3.5 - 5.1 mmol/LOhioHealthSodium [Moles/Vol]137 mmol/L135 - 145 mmol/LOhioHealthUrea nitrogen [Mass/Vol]36 mg/dLHigh8 - 25 mg/dLOhioHealth Urea nitrogen/Creatinine [Mass ratio]16.4 mg/mg10.0 - 20.0OhioHealthOhioHealth [facility] 15-07-7739MRAA NRBC0.0 %NormalLogansport Memorial HospitalComment on above:Performed By: #### [id number] ####[facility] [address] [address] Abbi Choudhary M.D. [id number] NRBC ABS COUNT0.00 K/mcLNormal0.00-0.00 [facility] HospitalComment on above:Performed By: #### [id number] ####[facility] [address] [place], [place] [address] Abbi Choudhary M.D. [id number] distribution width (RBC) [Ratio]13.1 %Nyizjz67.6-14.8[facility] Comment on above:Performed By: #### [id number] #### LAB [address] [place], [place] [address] Abbi Choudhary M.D. [id number] (Bld) [Volume fraction] 29.5 %Low36.0-46.0[facility] HospitalComment on above:Performed By: #### [id number] ####[facility] [address] [address] Abbi Choudhary M.D. [id number] (Bld) [Mass/Vol]9.2 g/dLLow12.0-16.0[facility] Comment on above:Performed By: #### 93984 ####[facility] [address] [address] Abbi Choudhary M.D. [id number] (RBC) [Entitic mass]30.8 pg Ejeioh95.0-34.0[facility] HospitalComment on above:Performed By: #### [id number] ####[facility] [address] [address] Abbi Choudhary M.D. 36D0 [id number] (RBC) [Entitic vol]98.7 tSIjdenb59.0-100.0[facility] Comment on above:Performed By: #### [id number] ####[facility] [address] [address] Abbi Choudhary M.D. [id number] CORPUSCULAR HEMOGLOBIN CONC31.2 g/uNGxoenu52.0-37.0[facility] HospitalComment on above:Performed By: #### [id number] ####[facility] [address] [address] Abbi Choudhary M.D. [id number] mean volume (Bld) [Entitic vol]9.4 fLNormal9.4-12.4[facility] HospitalComment on above:Performed By: #### [id number] ####[facility] [address] [address] Abbi Choudhary M.D. [id number] (Bld) [#/Vol]282 10*3/rBGnypyp632-247TbbuchLogansport Memorial HospitalComment on above:Performed By: #### [id number] ####[facility] [address] [place], [place] [address] Abbi Choudhary M.D. [id number] (Bld) [#/Vol]2.99 10*6/uLLow4.00-5.20[facility] HospitalComment on above:Performed By: #### [id number] ####[facility] [address] [address] Abbi Choudhary M.D. [id number] (Bld) [#/Vol]7.07 10*3/uL Normal4.50-11.00[facility] HospitalComment on above:Performed By: #### [id number] ####[facility] [address] [address] Abbi Choudhary M.D. 36D0 [id number] panel Auto (Bld)on 89-64-0168Zoxghhecuub distribution width (RBC) [Entitic vol]13.1 %11.6 - [...] 10*6/uLLowOhioHealthWBC (Bld) [#/Vol]7.07 10*3/uLOhioHealthOhioHealth Glucose (Bld) [Mass/Vol]on 62-52-4488Otycqzq [Mass/Vol]170 mg/zAGvle68 - 99 mg/dLOhioHealthInterpretation and review of laboratory resultsAbnormalOAdams County Regional Medical Centereal OhioHealthGlucose [Mass/Vol]226 mg/zKPebf95 - 99 mg/dLOhioHealthInterpretation and review of laboratory resultsAbnormalOhioHealthOhioHealthGlucose [Mass/Vol] 248 mg/oEEbxg18 - 99 mg/dLOhioHealthInterpretation and review of laboratory resultsAbnormalOhioHealthOhioHealthGlucose [Mass/Vol]275 mg/mEIxqs11 - 99 mg/dL OhioHealthInterpretation and review of laboratory resultsAbnormalOhiPAeal OhioHealthGlucose [Mass/Vol]274 mg/uFZquf08 - 99 mg/dLOhioHealthInterpretation and review of laboratory resultsAbnormBrown Memorial HospitalioEast [place] [facility] GLUCOSE [facility] 64-90-7885Buzifio [Mass/Vol]170 mg/jHUbcg86-28Awhndg [facility] HospitalComment on above:Performed By: #### [id number] ####[facility] [address] [place], [place] [address] Abbi Choudhary M.D. [id number] [Mass/Vol]226 mg/oPVyuu75-48Rgexst [facility] HospitalComment on above:Performed By: #### [id number] ####[facility] [address] [place], [place] [address] Abbi Choudhary M.D. [id number] [Mass/Vol]248 mg/nBDjfo20-95Qcqeny [facility] HospitalComment on above:Performed By: #### [id number] ####[facility] [address] [place], [place] [address] Abbi Choudhary M.D. [id number] [Mass/Vol]274 mg/iLFizf89-12GswpykSt. Vincent Clay Hospital Comment on above:Performed By: #### [id number] ####[facility] [address] [address]Alisia Choudhary M.D. [id number] FUNCTION PANELon 03-28-2024 Albumin [Mass/Vol]3.3 g/dLNormal3.2-5.2MSt. Vincent Clay HospitalComcovenant medical center on above: Order Comment: [facility] has implemented the eGFR calculation approach that does not have a coefficient for race that conforms to the NKF-ASN Task Force Recommendations.Performed By: #### [id number] ####[facility] [address] [address] Abbi Choudhary M.D. [id number] gap [Moles/Vol]15 mmol/LDgvndl73-76JqefoiKing's Daughters Hospital and Health Services on above:Order Comment: [facility] has implemented the eGFR calculation approach that does not have a coefficient for race that conforms to the NKF-ASN Task Force Recommendations.Performed By: #### [id number] ####[facility] [address] [address] Abbi Choudhary M.D. [id number] [Mass/Vol]8.5 mg/dLNormal8.4-10.2MIndiana University Health Methodist Hospital on above:Order Comment: [facility] has implemented the eGFR calculation approach that does not have a coefficient for race that conforms to the NKF-ASN Task Force Recommendations.Performed By: #### [id number] ####[facility] [address] [address] Abbi Choudhary M.D. [id number] [Moles/Vol]107 mmol/L Mfsxfr59-256WranyxLogansport Memorial HospitalComcovenant medical center on above:Order Comment: [facility] has implemented the eGFR calculation approach that does not have a coefficient for race that conforms to the NKF-ASN Task Force Recommendations.Performed By: #### [id number] ####[facility] [address] [address] Abbi Choudhary M.D. [id number] [Mass/Vol]2.47 mg/dLHigh 0.40-1.10[facility] on above:Order Comment: [facility] has implemented the eGFR calculation approach that does not have a coefficient for race that conforms to the NKF-ASN Task Force Recommendations.Performed By: #### [id number] ####[facility] [address] [address] Abbi Choudhary M.D. [id number] mL/min/1.73 m2Low>=60[facility] on above:Order Comment: [facility] has implemented the eGFR calculation approach that does not have a coefficient for race that conforms to the NKF-ASN Task Force Recommendations.Result Comment: Estimated GFR was calculated using the 2020 CKD-EPI creatinine equation. Performed By: #### [id number] ####[facility] [address] [place] [address] Abbi Choudhary M.D. [id number] [Mass/Vol]281 mg/lMJssm28-07KbxesnIndiana University Health Methodist Hospital on above:Order Comment: [facility] has implemented the eGFR calculation approach that does not have a coefficient for race that conforms to the NKF-ASN Task Force Recommendations.Performed By: #### [id number] ####[facility] [address] [address] Abbi Choudhary M.D. [id number] (Bld) [Moles/Vol]20 mmol/NSam99-11EigvqnKing's Daughters Hospital and Health Services on above:Order Comment: [facility] has implemented the eGFR calculation approach that does not have a coefficient for race that conforms to the NKF-ASN Task Force Recommendations.Performed By: #### [id number] ####[facility] [address] [address] Abbi Choudhary M.D. [id number] [Mass/Vol]4.8 mg/dLVeterans Affairs Medical Center2.7-4.5[facility] on above:Order Comment: [facility] has implemented the eGFR calculation approach that does not have a coefficient for race that conforms to the NKF-ASN Task Force Recommendations.Performed By: #### [id number] ####[facility] [address] [address] Abbi Choudhary M.D. [id number] [Moles/Vol]5.3 mmol/LHigh3.5-5.1MIndiana University Health Methodist Hospital on above:Order Comment: [facility] has implemented the eGFR calculation approach that does not have a coefficient for race that conforms to the NKF-ASN Task Force Recommendations.Performed By: #### [id number] ####[facility] [address] [place], [place] [address] Abbi Choudhary M.D. [id number] [Moles/Vol]137 mmol/L Qqfpgc350-473UeyrmhKing's Daughters Hospital and Health Services on above:Order Comment: [facility] has implemented the eGFR calculation approach that does not have a coefficient for race that conforms to the NKF-ASN Task Force Recommendations.Performed By: #### [id number] ####[facility] [address] [address] Abbi Choudhary M.D. [id number] nitrogen [Mass/Vol]34 mg/dLHigh 8-25[facility] on above:Order Comment: [facility] has implemented the eGFR calculation approach that does not have a coefficient for race that conforms to the NKF-ASN Task Force Recommendations. Performed By: #### [id number] ####[facility] [address] [address] Abbi Choudhary M.D. [id number] nitrogen/Creatinine [Mass ratio]13.8 mg/mgNormal 10.0-20.0[facility] on above:Order Comment: [facility] has implemented the eGFR calculation approach that does not have a coefficient for race that conforms to the NKF-ASN Task Force Recommendations.Performed By: #### [id number] ####[facility] [address] [place], [place] [address] Abbi Choudhary M.D. [id number] function 2000 panel 89-68-0720Ztfkbbh [Mass/Vol]3.3 g/dL3.2 - 5.2 g/dLOhioHealthAnion gap [Moles/Vol]15 mmol/L10 - 20 mmol/LOhioHealthCalcium [Mass/Vol]8.5 mg/dL8.4 - 10.2 mg/dLOhioHealthChloride [Moles/Vol]107 mmol/L98 - 108 mmol/LOhioHealth Creatinine [Mass/Vol]2.47 mg/dLHigh0.40 - 1.10 mg/dLOhioHealthGFR/1.73 sq M.predicted CKD-EPI (S/P/Bld) [Vol rate/Area]24Low- PINFOhioHealthGlucose [Mass/Vol]281 mg/nYJraq55 - 99 mg/dLOhioHealthHCO3 [Moles/Vol]20 mmol/LLow21 - 32 mmol/LOhioHealthInterpretation and review of laboratory resultsAbnormal OhioHealthPhosphate [Mass/Vol]4.8 mg/dLHigh2.7 - 4.5 mg/dLOhioHealthPotassium [Moles/Vol]5.3 mmol/LHigh3.5 - 5.1 mmol/LOhioHealthSodium [Moles/Vol]137 mmol/L 135 - 145 mmol/LOhioHealthUrea nitrogen [Mass/Vol]34 mg/dLHigh8 - 25 mg/dL OhioHealthUrea nitrogen/Creatinine [Mass ratio]13.8 mg/mg10.0 - 20.0[facility]Health OhioHealthOhioHealthUS Kidney - bilateral and Urinary bladderon 07-98-5536AH RIS GE RISOhioHealthUS Kidney - bilateral and Urinary bladderOrdered By: Kj Chiu on 30-68-1788TybrWotloa Work Phone: Bacteria identified Aer cx Nom (Unsp spec)Ordered By: Keyla Guerrero on 58-85-7296Shpapnyoepkyrc and review of laboratory results AbnormalOhioHealthGaioHealthCBCon 50-16-6440BPVG NRBC0.0 %NormalLogansport Memorial HospitalComment on above:Performed By: #### [id number] #### LAB [address] [place], [place] [address] Abbi Choudhary M.D. [id number] NRBC ABS COUNT0.00 K/mcL Normal0.00-0.00[facility] HospitalComment on above:Performed By: #### 74260 ####[facility] [address] [place], [place] [address] Abbi Choudhary M.D. 36D0 722338Apbmzlrgkcx distribution width (RBC) [Ratio]13.2 %Obfixh65.6-14.8[facility] HospitalComment on above:Performed By: #### [id number] ####[facility] [address] [address] Abbi Choudhary M.D. [id number] (Bld) [Volume fraction]30.8 %Low36.0-46.0[facility] HospitalComment on above: Performed By: #### [id number] ####[facility] [address] [address] Abbi Choudhary M.D. [id number] (Bld) [Mass/Vol]9.6 g/dLLow12.0-16.0[facility] HospitalComment on above:Performed By: #### [id number] ####[facility] [address] [address] Abbi Choudhary M.D. [id number] (RBC) [Entitic mass]30.6 ouKaucpb16.0-34.0[facility] HospitalComment on above: Performed By: #### [id number] ####[facility] [address] [address] Abbi Choudhary M.D. [id number] (RBC) [Entitic vol]98.1 vBRqyizs57.0-100.0[facility] HospitalComment on above:Performed By: #### [id number] ####[facility] [address] [address] Abbi Choudhary M.D. [id number] CORPUSCULAR HEMOGLOBIN CONC31.2 g/nTGcezgf36.0-37.0[facility] HospitalComment on above: Performed By: #### [id number] ####[facility] [address] [address] Abbi Choudhary M.D. [id number] mean volume (Bld) [Entitic vol]9.4 fLNormal 9.4-12.4[facility] HospitalComment on above:Performed By: #### [id number] ####[facility] [address] [place], [place] [address] Abbi Choudhary M.D. [id number] Platelets (Bld) [#/Vol]308 10*3/wXGdymvl142-105BcsomoLogansport Memorial HospitalComment on above:Performed By: #### [id number] ####[facility] [address] [address] Abbi Choudhary M.D. [id number] (Bld) [#/Vol]3.14 10*6/uLLow4.00-5.20 [facility] HospitalComcovenant medical center on above:Performed By: #### [id number] ####[facility] [address] [address] Abbi Choudhary M.D. [id number] (Bld) [#/Vol]7.80 10*3/uLNormal4.50-11.00[facility] HospitalComcovenant medical center on above: Performed By: #### [id number] ####[facility] [address] [address] Abbi Choudhary M.D. [id number] panel Auto (Bld)on 70-82-7806Vmufxzkveci distribution width (RBC) [Entitic vol]13.2 %11.6 - [...] activity/Vol]on 03-27-2024 Interpretation and review of laboratory resultsNormalOSelect Medical Specialty [facility] COMPREHENSIVE METABOLIC PANELon 32-65-0523Fwtocnu [Mass/Vol]3.1 g/dLLow3.2-5.2 [facility] HospitalComment on above:Order Comment: [facility] has implemented the eGFR calculation approach that does not have a coefficient for race that conforms to the NKF-ASN Task Force Recommendations. Performed By: #### [id number] ####[facility] [address] [address] Abbi Choudhary M.D. [id number] [Catalytic activity/Vol]91 U/RXlhwkm77-207VtvpjmLogansport Memorial HospitalComment on above:Order Comment: [facility] has implemented the eGFR calculation approach that does not have a coefficient for race that conforms to the NKF-ASN Task Force Recommendations.Performed By: #### 83653 #### [facility] [address] [address] Abbi Choudhary M.D. [id number] [Catalytic activity/Vol]11 U/LNormal0-35 U/LMSt. Vincent Clay HospitalComment on above:Order Comment: [facility] has implemented the eGFR calculation approach that does not have a coefficient for race that conforms to the NKF-ASN Task Force Recommendations.Performed By: #### [id number] ####[facility] [address] [place], [place] [address] Abbi Choudhary M.D. [id number] gap [Moles/Vol]14 mmol/DSehbsj07-41VyfafoLogansport Memorial Hospital Comment on above:Order Comment: [facility] has implemented the eGFR calculation approach that does not have a coefficient for race that conforms to the NKF-ASN Task Force Recommendations.Performed By: #### 02510 ####[facility] [address] [address] Abbi Choudhary M.D. 36D0 [id number] [Catalytic activity/Vol]11 U/LNormal0-35 U/LMSt. Vincent Clay Hospital Comment on above:Order Comment: [facility] has implemented the eGFR calculation approach that does not have a coefficient for race that conforms to the NKF-ASN Task Force Recommendations.Performed By: #### [id number] ####[facility] [address] [address] Abbi Choudhary M.D. 36D0 058577Gwppjyrea [Mass/Vol]0.3 mg/dLNormal0.0-1.3MSt. Vincent Clay HospitalComment on above:Order Comment: [facility] has implemented the eGFR calculation approach that does not have a coefficient for race that conforms to the NKF-ASN Task Force Recommendations.Performed By: #### 05821 ####[facility] [address] [address] Abbi Choudhary M.D. [id number] [Mass/Vol]8.2 mg/dLLow8.4-10.2MSt. Vincent Clay HospitalComment on above:Order Comment: [facility] has implemented the eGFR calculation approach that does not have a coefficient for race that conforms to the NKF-ASN Task Force Recommendations.Performed By: #### 21053 ####[facility] [address] [address] Abbi Choudhary M.D. [id number] [Moles/Vol]110 mmol/EHrqi68-312AdjjcpLogansport Memorial HospitalComment on above:Order Comment: [facility] has implemented the eGFR calculation approach that does not have a coefficient for race that conforms to the NKF-ASN Task Force Recommendations.Performed By: #### 69375 ####[facility] [address] [address] Abbi Choudhary M.D. [id number] [Mass/Vol]2.53 mg/dLHigh0.40-1.10[facility] HospitalComment on above:Order Comment: [facility] has implemented the eGFR calculation approach that does not have a coefficient for race that conforms to the NKF-ASN Task Force Recommendations.Performed By: #### 05071 ####[facility] [address] [address] Abbi Choudhary M.D. [id number] mL/min/1.73 m2Low>=60 [facility] HospitalComment on above:Order Comment: [facility] has implemented the eGFR calculation approach that does not have a coefficient for race that conforms to the NKF-ASN Task Force Recommendations. Result Comment: Estimated GFR was calculated using the 2020 CKD-EPI creatinine equation.Performed By: #### [id number] #### [facility] [address] [address] Abbi Choudhary M.D. [id number] [Mass/Vol]161 mg/xHTtsj00-63Onjpus[address] [place], [place] [address]Comcovenant medical center on above:Order Comment: [facility] has implemented the eGFR calculation approach that does not have a coefficient for race that conforms to the NKF-ASN Task Force Recommendations.Performed By: #### [id number] ####[facility] [address] [place] [address] Abbi Choudhary M.D. [id number] (Bld) [Moles/Vol]21 mmol/JYbfpau33-13IbiwlaLogansport Memorial Hospital Comment on above:Order Comment: [facility] has implemented the eGFR calculation approach that does not have a coefficient for race that conforms to the NKF-ASN Task Force Recommendations.Performed By: #### 04900 ####[facility] [address] [address] Abbi Choudhary M.D. 36D0 [id number] [Moles/Vol]4.8 mmol/LNormal3.5-5.1MIndiana University Health Methodist Hospital on above:Order Comment: [facility] has implemented the eGFR calculation approach that does not have a coefficient for race that conforms to the NKF-ASN Task Force Recommendations.Performed By: #### [id number] ####[facility] [address] [place] [address] Abbi Choudhary M.D. [id number] [Mass/Vol]5.9 g/dLLow6.0-8.0[facility] on above:Order Comment: [facility] has implemented the eGFR calculation approach that does not have a coefficient for race that conforms to the NKF-ASN Task Force Recommendations.Performed By: #### [id number] ####[facility] [address] [address] Abbi Choudhary M.D. [id number] [Moles/Vol]140 mmol/DYvjuhb262-518QbexyzKing's Daughters Hospital and Health Services on above:Order Comment: [facility] has implemented the eGFR calculation approach that does not have a coefficient for race that conforms to the NKF-ASN Task Force Recommendations.Performed By: #### 47651 #### [facility] [address] [address] Abbi Choudhary M.D. [id number] nitrogen [Mass/Vol]32 mg/dLHigh8-25[facility] on above:Order Comment: [facility] has implemented the eGFR calculation approach that does not have a coefficient for race that conforms to the NKF-ASN Task Force Recommendations.Performed By: #### [id number] #### [facility] [address] [address] Abbi Choudhary M.D. [id number] nitrogen/Creatinine [Mass ratio]12.6 mg/mbGmqfin74.0-20.0[facility] on above:Order Comment: [facility] has implemented the eGFR calculation approach that does not have a coefficient for race that conforms to the NKF-ASN Task Force Recommendations.Performed By: #### [id number] ####[facility] [address] [address] Abbi Choudhary M.D. [id number] 03-27-2024 CONSULTNoIndiana University Health Blackford HospitalCONSULTNoIndiana University Health Blackford HospitalCPKon 01-28-8260ZOY91 U/CYypsdc17-098EptiirKing's Daughters Hospital and Health Services on above:Performed By: #### 53857 ####[facility] [address] [address] Abbi Choudhary M.D. [id number] NO MBon 45-19-4634UZ [Catalytic activity/Vol]56 U/L40 - 170 U/LOhioHealthComprehensive metabolic 2000 panelon 30-70-1314Bondppy [Mass/Vol] 3.1 g/dLLow3.2 - 5.2 g/dLOhioHealthALP [Catalytic activity/Vol]91 U/L40 - 150 U/LOhioHealthALT [Catalytic activity/Vol]11 U/L0-35 U/LOhioHealthAnion gap [Moles/Vol]14 mmol/L10 - 20 mmol/LOhioHealthAST [Catalytic activity/Vol]11 U/L0- 35 U/LOhioHealthBilirubin [Mass/Vol]0.3 mg/dL0.0 - 1.3 mg/dLOhioHealthCalcium [Mass/Vol]8.2 mg/dLLow8.4 - 10.2 mg/dLOhioHealthChloride [Moles/Vol]110 mmol/L High98 - 108 mmol/LOhioHealthCreatinine [Mass/Vol]2.53 mg/dLHigh0.40 - 1.10 mg/dLOhioHealthGFR/1.73 sq M.predicted CKD-EPI (S/P/Bld) [Vol rate/Area]23Low- PINFOhioHealthGlucose [Mass/Vol]161 mg/oIHchd69 - 99 mg/dLOhioHealthHCO3 [Moles/Vol]21 mmol/L21 - 32 mmol/LOhioHealthInterpretation and review of laboratory resultsAbnormalOhioHealthPotassium [Moles/Vol]4.8 mmol/L3.5 - 5.1 mmol/LOhioHealthProtein [Mass/Vol]5.9 g/dLLow6.0 - 8.0 g/dLOhioHealthSodium [Moles/Vol]140 mmol/L135 - 145 mmol/LOhioHealthUrea nitrogen [Mass/Vol]32 mg/dL High8 - 25 mg/dLOhioHealthUrea nitrogen/Creatinine [Mass ratio]12.6 mg/mg10.0 - 20.0OhioHealthOhioHealthOhioHealthGlucose (Bld) [Mass/Vol]on 11-19-3008Zqxmypm [Mass/Vol]131 mg/sZXrsi99 - 99 mg/dLOhioHealthInterpretation and review of laboratory resultsAbnormalOhiPAealthOhioHealthGlucose [Mass/Vol]177 mg/zNSgsd28 - 99 mg/dLOhioHealthInterpretation and review of laboratory resultsAbnormal OhioHealthOhioHealthGlucose [Mass/Vol]223 mg/oJZqla81 - 99 mg/dLOhioHealth Interpretation and review of laboratory resultsAbnormalOhiPAealthOhioHealth Glucose [Mass/Vol]267 mg/vNHmnm61 - 99 mg/dLOhioHealthInterpretation and review of laboratory resultsAbnormalOhiPAealthOhioHealthGlucose [Mass/Vol]135 mg/dLHigh 65 - 99 mg/dLOhioHealthInterpretation and review of laboratory resultsAbnormal OhioHealthOhioHealthGlucose [Mass/Vol]275 mg/nZTpsy03 - 99 mg/dLOhioHealth Interpretation and review of laboratory resultsAbnormalOAdams County Regional Medical CenterealWVUMedicine [facility] HospitalioEast [place] [facility] GLUCOSE [facility] 06-79-5958Uvdjnci [Mass/Vol]131 mg/zKWgwt18-87Rwyyfx General HospitalComment on above:Performed By: #### [id number] ####[facility] [address] [address] Abbi Choudhary M.D. [id number] [Mass/Vol]177 mg/dL Rqfz78-36Ruhzlj General HospitalComment on above:Performed By: #### 46110 ####[facility] [address] [place], [place] [address] Abbi Choudhary M.D. 36D0 605153Slikxes [Mass/Vol]223 mg/oIHcjx86-06Mmmgvw General HospitalComment on above:Performed By: #### 34478 ####[facility] [address] [place], [place] [address] Abbi Choudhary M.D. [id number] [Mass/Vol]267 mg/hLCcxf94-78Chmkbv General HospitalComment on above:Performed By: #### 37230 ####[facility] [address] [place] [address] Abbi Choudhary M.D. [id number] [Mass/Vol]135 mg/cVPetu45-84UskyldSt. Vincent Clay HospitalComment on above:Performed By: #### 73181 ####[facility] [address] [place], [place] [address] Abbi Choudhary M.D. [id number] [Mass/Vol]275 mg/rABona84-66Spjn[address] Comment on above:Performed By: #### 85178 ####[facility] [address] [address] Abbi Choudhary M.D. [id number] Kidney - bilateral and Urinary bladderon 50-06-4270Uezkxcpxo Study observation (narrative)[facility] RENAL AND BLADDERon 18-08-8756ZW RENAL AND BLADDERNoIndiana University Health Blackford HospitalComment on above:Order Comment: Injury/Trauma or Illness?:Illness/OtherHow long have you had these symptoms (acute/chronic)?:UnknownReason for exam?:Renal failureHistory of cancer?:uSurgeries, chemotherapy, or radiation?:pacemakerType of Exam?:UnknownAdditional signs and symptoms?:noUrine Aerobic CultureOrdered By: Keyla Guerrero on 07-67-4008Owhbkmhy identified Aer cx Nom (Unsp spec) 50,000-100,000 CFU/mL Escherichia coliAbnormalOhioHealthXR CHEST LATERAL LEFTon 26-78-8010HQ CHEST LATERAL LEFTIndiana University Health Ball Memorial HospitalComment on above: Order Comment: Injury/Trauma or Illness?:Illness/OtherHow long have you had these symptoms (acute/chronic)?:AcuteReason for exam?:Eval depth of port access needleHistory of cancer?:uSurgeries, chemotherapy, or radiation?:pacemakerType of Exam?:OngoingAdditional signs and symptoms?:unable to get blood returnXR CHEST PA/APon [id number] CHEST PA/APRehabilitation Hospital of Indiana HospitalComment on above:Order Comment: Injury/Trauma or Illness?:Illness/OtherHow long have you had these symptoms (acute/chronic)?:AcuteReason for exam?:port varifictionHistory of cancer?:uSurgeries, chemotherapy, or radiat ion?:pacemakerType of Exam?:UnknownAdditional signs and symptoms?:noXR Chest AP left lateral-decubituson [id number] [facility] CenterRadiology Study observation (narrative)[facility] HospitalXR Chest PA and Abdomen APon 64-68-7050QL [facility] HospitalRadiology Study observation (narrative)[facility] Chest PA and Abdomen APOrdered By: Jermaine Peralta on 86-83-0462OrjjSiezhy Work Phone: BASIC METABOLIC PANELon 14-24-8202Yafwj gap [Moles/Vol]16 mmol/QCylhrd18-71FrkxvzKing's Daughters Hospital and Health Services on above:Order Comment: [facility] has implemented the eGFR calculation approach that does not have a coefficient for race that conforms to the NKF-ASN Task Force Recommendations.Performed By: #### [id number] ####[facility] [address] [place], [place] [address] Abbi Choudhary M.D. [id number] [Mass/Vol]8.3 mg/dLLow8.4-10.2MIndiana University Health Methodist Hospital on above:Order Comment: [facility] has implemented the eGFR calculation approach that does not have a coefficient for race that conforms to the NKF-ASN Task Force Recommendations.Performed By: #### 25575 ####[facility] [address] [place], [place] [address] Abbi Choudhary M.D. [id number] [Moles/Vol]106 mmol/L Ukspzh48-659XqkdriKing's Daughters Hospital and Health Services on above:Order Comment: [facility] has implemented the eGFR calculation approach that does not have a coefficient for race that conforms to the NKF-ASN Task Force Recommendations.Performed By: #### 38056 ####[facility] [address] [place], [place] [address] Abbi Choudhary M.D. [id number] [Mass/Vol]2.52 mg/dLHigh 0.40-1.10[facility] on above:Order Comment: [facility] has implemented the eGFR calculation approach that does not have a coefficient for race that conforms to the NKF-ASN Task Force Recommendations.Performed By: #### 61649 ####[facility] [address] [place] [address] Abbi Choudhary M.D. [id number] mL/min/1.73 m2Low>=60[facility] on above:Order Comment: [facility] has implemented the eGFR calculation approach that does not have a coefficient for race that conforms to the NKF-ASN Task Force Recommendations.Result Comment: Estimated GFR was calculated using the 2020 CKD-EPI creatinine equation. Performed By: #### 88415 ####[facility] [address] [place] [address] Abbi Choudhary M.D. [id number] [Mass/Vol]333 mg/nZEpvj65-60TewsxfIndiana University Health Methodist Hospital on above:Order Comment: [facility] has implemented the eGFR calculation approach that does not have a coefficient for race that conforms to the NKF-ASN Task Force Recommendations.Performed By: #### 29955 ####[facility] [address] [place] [address] Abbi Choudhary M.D. [id number] (Bld) [Moles/Vol]20 mmol/EUgl14-89SjnvqkKing's Daughters Hospital and Health Services on above:Order Comment: [facility] has implemented the eGFR calculation approach that does not have a coefficient for race that conforms to the NKF-ASN Task Force Recommendations.Performed By: #### 89216 ####[facility] [address] [place] [address] Abbi Choudhary M.D. [id number] [Moles/Vol]4.8 mmol/LNormal3.5-5.1MIndiana University Health Methodist Hospital on above:Order Comment: [facility] has implemented the eGFR calculation approach that does not have a coefficient for race that conforms to the NKF-ASN Task Force Recommendations.Performed By: #### 14789 ####[facility] [address] [place] [address] Abbi Choudhary M.D. [id number] [Moles/Vol]137 mmol/GJuipsy345-787OtclcbKing's Daughters Hospital and Health Services on above:Order Comment: [facility] has implemented the eGFR calculation approach that does not have a coefficient for race that conforms to the NKF-ASN Task Force Recommendations.Performed By: #### 16020 #### LAB [address] [place], [place] [address] Abbi Choudhary M.D. [id number] nitrogen [Mass/Vol]30 mg/dLHigh8-25Log[facility] HospitalComcovenant medical center on above:Order Comment: [facility] has implemented the eGFR calculation approach that does not have a coefficient for race that conforms to the NKF-ASN Task Force Recommendations.Performed By: #### 82371 ####[facility] [address] [place] [address] Abbi Choudhary M.D. [id number] nitrogen/Creatinine [Mass ratio]11.9 mg/evPmpzkn76.0-20.0[facility] HospitalComcovenant medical center on above:Order Comment: [facility] has implemented the eGFR calculation approach that does not have a coefficient for race that conforms to the NKF-ASN Task Force Recommendations.Performed By: #### 48169 ####[facility] [address] [place], [place] [address] Abbi Choudhary M.D. [id number]-UOWJZXOTNULHJVVxg 25-47-5470TFRW-HYDROXYBUTYRATE<Normal0.0-0.3MIndiana University Health Methodist Hospital on above:Performed By: #### 19623 ####[facility] [address] [place], [place] [address] Abbi Choudhary M.D. [id number] metabolic 2000 panelOrdered By: Wai Villatoro on 18-90-6240Pohsl gap [Moles/Vol]16 mmol/L10 - 20 mmol/LOhioHealthCalcium [Mass/Vol]8.3 mg/dLLow8.4 - 10.2 mg/dLOhioHealthChloride [Moles/Vol]106 mmol/L98 - 108 mmol/LOhioHealthCreatinine [Mass/Vol]2.52 mg/dLHigh0.40 - 1.10 mg/dL OhioHealthGFR/1.73 sq M.predicted CKD-EPI (S/P/Bld) [Vol rate/Area]23Low- PINF OhioHealthGlucose [Mass/Vol]333 mg/bPWqjq29 - 99 mg/dLOhioHealthHCO3 [Moles/Vol] 20 mmol/LLow21 - 32 mmol/LOhioHealthInterpretation and review of laboratory resultsAbnormalOhioHealthPotassium [Moles/Vol]4.8 mmol/L3.5 - 5.1 mmol/L OhioHealthSodium [Moles/Vol]137 mmol/L135 - 145 mmol/LOhioHealthUrea nitrogen [Mass/Vol]30 mg/dLHigh8 - 25 mg/dLOhioHealthUrea nitrogen/Creatinine [Mass ratio]11.9 mg/mg10.0 - 20.0OhioHealthOhioHealthOhioHealthBeta hydroxybutyrate [Moles/Vol]on 59-04-8542Hvfgphhbikpjjq and review of laboratory resultsNormal OhioHealthOhioHealthBeta-Hydroxybutyrateon 63-94-7409Yutg hydroxybutyrate [Moles/Vol]mmol/L0.0 - 0.3 mmol/LOhioHealthCBC (INCLUDES DIFF/PLT)on 03-26-2024 Basophils (Bld) [#/Vol]0.073 10*3/uLNormal0-200Quest DiagnosticsComment on above:Performed By: #### 67614, 51368, 866, 899, 496, 6399, 26504 #### [facility] [address], [address] [place] [address] Coatings Inspector: Dean Maddox MDBasophils/100 WBC (Bld)0.7 %NormalQuest DiagnosticsComment on above:Performed By: #### 03674, 96836, 866, 899, 496, 6399, 94713 #### [facility] [address], [address] [place] [address] Coatings Inspector: Dean Maddox MDEosinophils (Bld) [#/Vol]0.354 10*3/uLNormal 15-500Quest DiagnosticsComment on above:Performed By: #### 03487, 45409, 866, 899, 496, 6399, 34814 #### [facility] of [address], [address] [place] [address] Coatings Inspector: Dean Maddox MDEosinophils/100 WBC (Bld)3.4 %NormalQuest DiagnosticsComment on above:Performed By: #### 45543, 85908, 866, 899, 496, 6399, 05317 #### [facility] of [address], [address] [place] [address] Coatings Inspector: Dean Maddox MDErythrocyte distribution width (RBC) [Ratio] 13.0 %Lmvrla52.0-15.0Quest DiagnosticsComment on above:Performed By: #### 93673, 57454, 866, 899, 496, 6399, 51409 #### [facility] of [place] [address] Coatings Inspector: Dean Maddox MDHematocrit (Bld) [Volume fraction]40.1 %Normal 35.0-45.0Quest DiagnosticsComment on above:Performed By: #### 45706, 24839, 866, 899, 496, 6399, 17323 #### [facility] of [place] [address] Coatings Inspector: Dean Maddox MDHemoglobin (Bld) [Mass/Vol]12.8 g/dLNormal 11.7-15.5Quest DiagnosticsComment on above:Performed By: #### 69063, 41551, 866, 899, 496, 6399, 37138 #### [facility] of [place] [address] Coatings Inspector: Dean Maddox MDLymphocytes (Bld) [#/Vol]2.007 10*3/uLNormal 850-3900Quest DiagnosticsComment on above:Performed By: #### 64054, 86163, 866, 899, 496, 6399, 27661 #### [facility] of [address], [address] [place] [address] Coatings Inspector: Dean Maddox MDLymphocytes/100 WBC (Bld)19.3 %NormalQuest DiagnosticsComment on above:Performed By: #### 69785, 46678, 866, 899, 496, 6399, 04636 #### [facility] [address], [address] [place] [address] Coatings Inspector: Dean Maddox MDMCH (RBC) [Entitic mass]30.0 giLicuri14.0-33.0 Quest DiagnosticsComment on above:Performed By: #### 18618, 01249, 866, 899, 496, 6399, 69447 #### [facility] [address], [address] [place] [address] Coatings Inspector: Dean JUAREZCHC (RBC) [Mass/Vol]31.9 g/dLLow32.0-36.0 Quest DiagnosticsComment on above:Result Comment: For adults, a slight decrease in the calculated MCHC value (in the range of 30 to 32 g/dL) is most likely not clinically significant; however, it should be interpreted with caution in correlation with other red cell parameters and the patient's clinical condition.Performed By: #### 92479, 87299, 866, 899, 496, 6399, 31548 #### [facility] [place] [address] Coatings Inspector: Dena Maddox MDMCV (RBC) [Entitic vol]94.1 wNVvzuzx27.0-100.0 Quest DiagnosticsComment on above:Performed By: #### 51862, 66269, 866, 899, 496, 6399, 99740 #### [facility] [address], [address] [place] [address] Coatings Inspector: Dean Maddox MDMonocytes (Bld) [#/Vol]0.478 10*3/uLNormal 200-950Quest DiagnosticsComment on above:Performed By: #### 74438, 46783, 866, 899, 496, 6399, 58528 #### [facility] of [address], [address] [place] [address] Coatings Inspector: Dean Maddox MDMonocytes/100 WBC (Bld)4.6 %NormalQuest DiagnosticsComment on above:Performed By: #### 53138, 82573, 866, 899, 496, 6399, 65866 #### [facility] of [address], [address] [place] [address] Coatings Inspector: Dean Maddox MDNeutrophils (Bld) [#/Vol]7.488 10*3/uLNormal 1500-7800Quest DiagnosticsComment on above:Performed By: #### 92333, 86999, 866, 899, 496, 6399, 86923 #### [facility] of [address], [address] [place] [address] Coatings Inspector: Dean Maddox MDNeutrophils/100 WBC (Bld)72 %NormalQuest DiagnosticsComment on above:Performed By: #### 31784, 86745, 866, 899, 496, 6399, 72885 #### [facility] of [place] [address] Coatings Inspector: Dean Maddox MDPlatelet mean volume (Bld) [Entitic vol]9.6 fL Normal7.5-12.5Quest DiagnosticsComment on above:Performed By: #### 17113, 78820, 866, 899, 496, 6399, 27304 #### [facility] of [place] [address] Coatings Inspector: Dean Maddox MDPlatelets (Bld) [#/Vol]367 10*3/uLNormal 140-400Quest DiagnosticsComment on above:Performed By: #### 25931, 14535, 866, 899, 496, 6399, 95276 #### [facility] [address], [address] [place] [address] Coatings Inspector: Dean Maddox [facility] ([facility]) [#/Vol]4.26 10*6/uLNormal3.80-5.10 Quest DiagnosticsComment on above:Performed By: #### 70484, 20347, 866, 899, 496, 6399, 69815 #### [facility] [address], [address] [place] [address] Coatings Inspector: Dean Maddox MDNY[facility] ([facility]) [#/Vol]10.4 10*3/uLNormal3.8-10.8 Quest DiagnosticsComment on above:Performed By: #### 15217, 99476, 866, 899, 496, 6399, 91183 #### [facility] [address], [address] [place] [address] Coatings Inspector: Dean Maddox [facility]ON[facility]PREHENSIVE METABOLIC PANEL 03-26-2024 Albumin [Mass/Vol]4.1 g/dLNormal3.6-5.1Quest DiagnosticsComment on above:Order Comment: COLLECTION KIT GIVEN TO PATIENT. PATIENT ADVISED TO RETURN.Performed By: #### 18166, 01209, 866, 899, 496, 6399, 24878 #### [facility] [address], [address] [place] [address] Coatings Inspector: Dean Maddox MDAlbumin/Globulin [Mass ratio]1.3 {ratio}Normal 1.0-2.5Quest DiagnosticsComment on above:Order Comment: COLLECTION KIT GIVEN TO PATIENT. PATIENT ADVISED TO RETURN.Performed By: #### 80545, 66307, 866, 899, 496, 6399, 43910 #### [facility] [address], [address] [place] [address] Coatings Inspector: Dean Maddox MDALP [Catalytic activity/Vol]114 U/LNormal 31-125Quest DiagnosticsComment on above:Order Comment: COLLECTION KIT GIVEN TO PATIENT. PATIENT ADVISED TO RETURN.Performed By: #### 04742, 24679, 866, 899, 496, 6399, 39664 #### [facility] [address], [address] [place] [address] Coatings Inspector: Dean Maddox MDALT [Catalytic activity/Vol]11 U/LNormal6-29 [facility] DiagnosticsComment on above:Order Comment: COLLECTION KIT GIVEN TO PATIENT. PATIENT ADVISED TO RETURN.Performed By: #### 54980, 69901, 866, 899, 496, 6399, 76089 #### [facility] [place] [address] Coatings Inspector: Dean Maddox MDAST [Catalytic activity/Vol]9 U/KPlw24-25Rrgds DiagnosticsComment on above:Order Comment: COLLECTION KIT GIVEN TO PATIENT. PATIENT ADVISED TO RETURN.Performed By: #### 45579, 73457, 866, 899, 496, 6399, 00122 #### [facility] [address], [address] [place] [address] Coatings Inspector: Dean Maddox MDBilirubin [Mass/Vol]0.5 mg/dLNormal0.2-1.2 Quest DiagnosticsComment on above:Order Comment: COLLECTION KIT GIVEN TO PATIENT. PATIENT ADVISED TO RETURN.Performed By: #### 25087, 92119, 866, 899, 496, 6399, 16488 #### [facility] [address], [address] [place] [address] Coatings Inspector: Dean Maddox MDCalcium [Mass/Vol]9.8 mg/dLNormal8.6-10.2Quest DiagnosticsComment on above:Order Comment: COLLECTION KIT GIVEN TO PATIENT. PATIENT ADVISED TO RETURN.Performed By: #### 65284, 65478, 866, 899, 496, 6399, 59987 #### [facility] [address], [address] [place] [address] Coatings Inspector: Dean GUARDADOhloride [Moles/Vol]106 mmol/CNauabi09-946 [facility] DiagnosticsComment on above:Order Comment: COLLECTION KIT GIVEN TO PATIENT. PATIENT ADVISED TO RETURN.Performed By: #### 33213, 92206, 866, 899, 496, 6399, 27826 #### [facility] [address], [address] [place] [address] Coatings Inspector: Dean Maddox MDCO2 [Moles/Vol]23 mmol/WTkucnm12-85Xsweo DiagnosticsComment on above:Order Comment: COLLECTION KIT GIVEN TO PATIENT. PATIENT ADVISED TO RETURN.Performed By: #### 00014, 33403, 866, 899, 496, 6399, 82548 #### [facility] [address], [address] [place] [address] Coatings Inspector: Dean GUARDADOreatinine [Mass/Vol]1.28 mg/dLHigh0.50-0.99 Quest DiagnosticsComment on above:Order Comment: COLLECTION KIT GIVEN TO PATIENT. PATIENT ADVISED TO RETURN.Performed By: #### 36352, 88591, 866, 899, 496, 6399, 66290 #### [facility] [address], [address] [place] [address] Coatings Inspector: Dean Maddox MDGFR/1.73 sq M.predicted among non-blacks MDRD (S/P/Bld) [Vol rate/Area]52 mL/min/{1.73_m2}Low> OR = 60Quest DiagnosticsComment on above:Order Comment: COLLECTION KIT GIVEN TO PATIENT. PATIENT ADVISED TO RETURN.Performed By: #### 39039, 78829, 866, 899, 496, 6399, 27419 #### [facility] [address], [address] [place] [address] Coatings Inspector: Dean Maddox MDGlobulin (S) [Mass/Vol]3.1 g/dLNormal1.9-3.7 Quest DiagnosticsComment on above:Order Comment: COLLECTION KIT GIVEN TO PATIENT. PATIENT ADVISED TO RETURN.Performed By: #### 10855, 77137, 866, 899, 496, 6399, 57754 #### [facility] [place] [address] Coatings Inspector: Dean Maddox MDGlucose [Mass/Vol]239 mg/qYRsaw84-04Qmzex DiagnosticsComment on above:Order Comment: COLLECTION KIT GIVEN TO PATIENT. PATIENT ADVISED TO RETURN.Result Comment: Fasting reference interval For someone without known diabetes, a glucose value >125 mg/dL indicates that they may have diabetes and this should be confirmed with a follow-up test.Performed By: #### 08762, 49011, 866, 899, 496, 6399, 27999 #### [facility] [place] [address] Coatings Inspector: Dean Maddox MDPotassium [Moles/Vol]4.3 mmol/LNormal3.5-5.3 Quest DiagnosticsComment on above:Order Comment: COLLECTION KIT GIVEN TO PATIENT. PATIENT ADVISED TO RETURN.Performed By: #### 41905, 99400, 866, 899, 496, 6399, 82861 #### [facility] [place] [address] Coatings Inspector: Dean Maddox MDProtein [Mass/Vol]7.2 g/dLNormal6.1-8.1Quest DiagnosticsComment on above:Order Comment: COLLECTION KIT GIVEN TO PATIENT. PATIENT ADVISED TO RETURN.Performed By: #### 00056, 76210, 866, 899, 496, 6399, 07722 #### [facility] [address], [address] [place] [address] Coatings Inspector: Dean Maddox MDSodium [Moles/Vol]138 mmol/HYswzat735-352Psdex DiagnosticsComment on above:Order Comment: COLLECTION KIT GIVEN TO PATIENT. PATIENT ADVISED TO RETURN.Performed By: #### 28218, 83903, 866, 899, 496, 6399, 95088 #### [facility] [address], [address] [place] [address] Coatings Inspector: Dean Maddox MDUrea nitrogen [Mass/Vol]34 mg/dLHigh7-25Quest DiagnosticsComment on above:Order Comment: COLLECTION KIT GIVEN TO PATIENT. PATIENT ADVISED TO RETURN.Performed By: #### 92096, 36383, 866, 899, 496, 6399, 98367 #### [facility] [address], [address] [place] [address] Coatings Inspector: Dean Maddox MDUrea nitrogen/Creatinine [Mass ratio]27 mg/mg High6-22Quest DiagnosticsComment on above:Order Comment: COLLECTION KIT GIVEN TO PATIENT. PATIENT ADVISED TO RETURN.Performed By: #### 57373, 68230, 866, 899, 496, 6399, 04774 #### [facility] [address], [address] [place] [address] Coatings Inspector: Dean Maddox MDCDESTINYATININE, SERUMon 64-02-2463Bchbnecyza [Mass/Vol]1.67 mg/dLHigh0.40-1.10[facility] HospitalComment on above:Order Comment: For monitoring while on vancomycin therapyOhioHealth [facility] has implemented the eGFR calculation approach that does not have a coefficient for race that conforms to the NKF-ASN Task Force Recommendations. Performed By: #### 40318 ####[facility] [address] [place], [place] [address] Abbi Choudhary M.D. [id number] mL/min/1.73 m2Low>=60[facility] Comment on above:Order Comment: For monitoring while on vancomycin therapyOhRiverview [facility] Institute [facility] has implemented the eGFR calculation approach that does not have a coefficient for race that conforms to the NKF-ASN Task Force Recommendations.Result Comment: Estimated GFR was calculated using the 2020 CKD-EPI creatinine equation.Performed By: #### 11948 ####[facility] [address] [place], [place] [address] Abbi Choudhary M.D. [id number] [Mass/Vol]on 31-01-7873MLY/1.73 sq M.predicted CKD-EPI (S/P/Bld) [Vol rate/Area] 38Low- PINFOhioHealthInterpretation and review of laboratory resultsAbnormal OhioHealthOhioHealthOhioHealthCreatinine, Serumon 79-56-9767Bafsnxhsfa [Mass/Vol]1.67 mg/dLHigh0.40 - 1.10 mg/dLOhioHealthGlucose (Bld) [Mass/Vol]on 08-72-6258Jjcsjov [Mass/Vol]328 mg/fTXeoq54 - 99 mg/dLOhioHealthInterpretation and review of laboratory resultsAbnormalOhioHealthOhioHealthGlucose [Mass/Vol] 312 mg/tAPbhz79 - 99 mg/dLOhioHealthInterpretation and review of laboratory resultsAbnormalOhioHealthOhioHealthGlucose [Mass/Vol]214 mg/rKIjsk31 - 99 mg/dL OhioHealthInterpretation and review of laboratory resultsAbnormalOhioHealth OhioHealthGlucose [Mass/Vol]101 mg/aNTmol04 - 99 mg/dLOhioHealthInterpretation and review of laboratory resultsAbnormalOhioHealthOhioHealthGlucose [Mass/Vol]72 mg/dL65 - 99 mg/dLOhioHealthInterpretation and review of laboratory results NormalOhioHealthOhioHealthLEVETIRACETAMon 94-64-0575jcsTRXJAruwvh [Mass/Vol] ug/mLLowQuest DiagnosticsComment on above:Result Comment: Reference Range: 12.0-46.0 Toxic level is not well established. Interpretation should include a clinical evaluation. For additional information, please refer to http://education.[employer]/faq/CBQ075 (This link is being provided for informational/educational purposes only.) This test was developed and its analytical performance characteristics have been determined by [employer]. It has not been cleared or approved by the FDA. This assay has been validated pursuant to the CLIA regulations and is used for clinical purposes.Performed By: #### 04820, 97436, 866, 899, 496, 3622, 59997 #### [employer] [facility] [address], [address] [place] [address] Coatings Inspector: Dean Zimmer 93-11-8209Apbql [employer] for add-ons.[facility] GLUCOSE - RALSon 07-48-9286Ahutytl [Mass/Vol]328 mg/gFAghj42-48Acaurf [facility] HospitalComment on above:Performed By: #### 22251 ####[facility] [address] [place], [place] [address] Abbi Choudhary M.D. [id number] [Mass/Vol]312 mg/cDTdfl39-96Avkkoc [facility] HospitalComment on above:Performed By: #### 10168 ####[facility] [address] [place] [address] Abbi Choudhary M.D. [id number] [Mass/Vol]214 mg/jEOxnt43-20Okzqsu [facility] HospitalComment on above:Performed By: #### 17218 ####[facility] [address] [place] [address] Abbi Choudhary M.D. [id number] [Mass/Vol]101 mg/eMFczn03-27Pkgcot [facility] HospitalComment on above:Performed By: #### 45178 ####[facility] [address] [place] [address] Abbi Choudhary M.D. [id number] [Mass/Vol]72 mg/bXRgdnco50-10HhbqgwSt. Vincent [facility] Hospital Comment on above:Performed By: #### 96643 ####[facility] [address] [place], [place] [address] Abbi Choudhary M.D. [id number] METABOLIC PANELon 03-25-2024 Anion gap [Moles/Vol]15 mmol/ZSutojo90-14EguyhoLogansport Memorial HospitalComment on above:Order Comment: [facility] has implemented the eGFR calculation approach that does not have a coefficient for race that conforms to the NKF-ASN Task Force Recommendations.Performed By: #### 27515 ####[facility] [address] [place] [address] Abbi Choudhary M.D. [id number] [Mass/Vol]8.3 mg/dLLow8.4-10.2MInd[facility] on above:Order Comment: [facility] has implemented the eGFR calculation approach that does not have a coefficient for race that conforms to the NKF-ASN Task Force Recommendations.Performed By: #### 30751 ####[facility] [address] [place] [address] Abbi Choudhary M.D. [id number] [Moles/Vol]105 mmol/GPbinsp83-989HfgtfuKing's Daughters Hospital and Health Services on above:Order Comment: [facility] has implemented the eGFR calculation approach that does not have a coefficient for race that conforms to the NKF-ASN Task Force Recommendations.Performed By: #### 83563 ####[facility] [address] [place] [address] Abbi Choudhary M.D. [id number] [Mass/Vol]1.35 mg/dLHigh0.40-1.10[facility] on above:Order Comment: [facility] has implemented the eGFR calculation approach that does not have a coefficient for race that conforms to the NKF-ASN Task Force Recommendations.Performed By: #### 67863 ####[facility] [address] [place] [address] Abbi Choudhary M.D. [id number] mL/min/1.73 m2Low>=60 [facility] on above:Order Comment: [facility] has implemented the eGFR calculation approach that does not have a coefficient for race that conforms to the NKF-ASN Task Force Recommendations. Result Comment: Estimated GFR was calculated using the 2020 CKD-EPI creatinine equation.Performed By: #### 35858 ####[facility] [address] [place] [place] [address] Abbi Choudhary M.D. [id number] [Mass/Vol]345 mg/xHHqve06-41HqquarIndiana University Health Methodist Hospital on above:Order Comment: [facility] has implemented the eGFR calculation approach that does not have a coefficient for race that conforms to the NKF-ASN Task Force Recommendations.Performed By: #### [id number] ####[facility] [address] [place] [address] Abbi Choudhary M.D. [id number] (Bld) [Moles/Vol]22 mmol/YGdvckk10-12StbhdgLogansport Memorial Hospital Comment on above:Order Comment: [facility] has implemented the eGFR calculation approach that does not have a coefficient for race that conforms to the NKF-ASN Task Force Recommendations.Performed By: #### [id number] ####[facility] [address] [place] [address] Abbi Choudhary M.D. 36D0 [id number] [Moles/Vol]4.3 mmol/LNormal3.5-5.1MSt. Vincent Clay HospitalComcovenant medical center on above:Order Comment: [facility] has implemented the eGFR calculation approach that does not have a coefficient for race that conforms to the NKF-ASN Task Force Recommendations.Performed By: #### [id number] ####[facility] [address] [place] [address] Abbi Choudhary M.D. [id number] [Moles/Vol]138 mmol/TVkzopj470-253AsbesvLogansport Memorial HospitalComment on above:Order Comment: [facility] has implemented the eGFR calculation approach that does not have a coefficient for race that conforms to the NKF-ASN Task Force Recommendations.Performed By: #### [id number] ####[facility] [address] [place] [address] Abbi Choudhary M.D. [id number] nitrogen [Mass/Vol] 23 mg/dLNormal8-25Logansport Memorial HospitalComment on above:Order Comment: [facility] has implemented the eGFR calculation approach that does not have a coefficient for race that conforms to the NKF-ASN Task Force Recommendations.Performed By: #### [id number] ####[facility] [address] [place] [address] Abbi Choudhary M.D. [id number] nitrogen/Creatinine [Mass ratio]17.0 mg/puXifhqy83.0-20.0[facility] Memorial HospitalComcovenant medical center on above:Order Comment: [facility] has implemented the eGFR calculation approach that does not have a coefficient for race that conforms to the NKF-ASN Task Force Recommendations.Performed By: #### [id number] ####[facility] [address] [place], [place] [address] Abbi Choudhary M.D. [id number] CULTURE AEROBIC/ANAEROBICon 41-67-1948GMHVO CULTURE AEROBIC/ANAEROBICBLOOD CULTURE No Growth after 5 daysNormParkview Noble HospitalComment on above:Performed By: #### [id number] ####[facility] [address], [place] [address] Swapnil Brewer M.D. [id number] metabolic 2000 panelon 40-88-5822Jnqqd gap [Moles/Vol]15 mmol/L10 - 20 mmol/LOhioHealthCalcium [Mass/Vol]8.3 mg/dLLow8.4 - 10.2 mg/dLOhioHealthChloride [Moles/Vol]105 mmol/L98 - 108 mmol/LOhioHealthCreatinine [Mass/Vol]1.35 mg/dLHigh0.40 - 1.10 mg/dL OhioHealthGFR/1.73 sq M.predicted CKD-EPI (S/P/Bld) [Vol rate/Area]49Low- PINF OhioHealthGlucose [Mass/Vol]345 mg/hKBkhf55 - 99 mg/dLOhioHealthHCO3 [Moles/Vol] 22 mmol/L21 - 32 mmol/LOhioHealthInterpretation and review of laboratory results AbnormalOhioHealthPotassium [Moles/Vol]4.3 mmol/L3.5 - 5.1 mmol/LOhioHealth Sodium [Moles/Vol]138 mmol/L135 - 145 mmol/LOhioHealthUrea nitrogen [Mass/Vol]23 mg/dL8 - 25 mg/dLOhioHealthUrea nitrogen/Creatinine [Mass ratio]17 mg/mg10.0 - 20.0OhioHealthOhioHealthOhioHealthCBCon 07-66-9419MZBP NRBC0.0 %[facility] HospitalComment on above:Performed By: #### 66956 ####[facility] [address] [place], [place] [address] Abbi Choudhary M.D. [id number] NRBC ABS COUNT0.00 K/mcLNormal0.00-0.00Logansport Memorial HospitalComment on above:Performed By: #### [id number] ####[facility] [address] [place] [address] Abbi Choudhary M.D. [id number] distribution width (RBC) [Ratio]13.0 %Xpjxbt47.6-14.8 [facility] HospitalComment on above:Performed By: #### [id number] ####[facility] [address] [place] [address] Abbi Choudhary M.D. [id number] (Bld) [Volume fraction]29.7 %Low36.0-46.0Log[facility]port Memorial HospitalComment on above:Performed By: #### [id number] ####[facility] [address] [place] [address] Abbi Choudhary M.D. [id number] (Bld) [Mass/Vol]10.2 g/dLLow12.0-16.0 [facility] HospitalComment on above:Performed By: #### [id number] ####[facility] [address] [place] [address] Abbi Choudhary M.D. [id number] (RBC) [Entitic mass]30.7 arEnfbbz84.0-34.0Log[facility]port Memorial HospitalComment on above: Performed By: #### [id number] ####[facility] [address] [place] [address] Abbi Choudhary M.D. [id number] (RBC) [Entitic vol]89.5 dVEqrcgx51.0-100.0Log[facility]port [facility] HospitalComment on above:Performed By: #### [id number] ####[facility] [address] [place] [address] Abbi Choudhary M.D. [id number] CORPUSCULAR HEMOGLOBIN CONC34.3 g/xSLotwfm88.0-37.0Log[facility] HospitalComment on above: Performed By: #### [id number] ####[facility] [address] [place] [address] Abbi Choudhary M.D. [id number] mean volume (Bld) [Entitic vol]9.0 fLLow 9.4-12.4Log[facility]port Memorial HospitalComment on above:Performed By: #### 88415 ####[facility] [address] [place] [address] Abbi Choudhary M.D. [id number] Platelets (Bld) [#/Vol]297 10*3/eJDbnaff958-091NmnvomLogansport Memorial HospitalComment on above:Performed By: #### [id number] ####[facility] [address] [place] [address] Abbi Choudhary M.D. [id number] (Bld) [#/Vol]3.32 10*6/uLLow4.00-5.20 [facility] HospitalComcovenant medical center on above:Performed By: #### [id number] ####[facility] [address] [place] [address] Abbi Choudhary M.D. [id number] (Bld) [#/Vol]8.66 10*3/uLNormal4.50-11.00[facility] on above: Performed By: #### [id number] ####[facility] [address] [place] [address] Abbi Choudhary M.D. [id number] panel Auto (Bld)on 21-57-8709Lcrreitqyoj distribution width (RBC) [Entitic vol]13 %11.6 - [...] (Bld) [#/Vol]3.32 10*6/uLLowOhioHealthWBC (Bld) [#/Vol] 8.66 10*3/uLOhioHealthOhioHealthCONSULTon 55-08-3467UJXYESUZaspzuXwakegSt. Vincent [facility] 12- Leadon 71-05-6076Qhnlfh Nuow607HBOLslyMpkkgbY Nwar44lrgzjuf OhioHealthP-R Ulgsrcsh514 msOhioHealthQ-T Qwlkqnlb327 msOhioHealthQRS Fomnixfb04 msOhioHealthQTC Calculation (Bezet)441 msOhioHealthR Nmsr25saqxnazWdkaAgxnexF Xhmd80csewtmqFrnqLqracqVwerqdrmaoy Hruf474HQENvorGsqsxkDBCOSuokSiknxmCYGrw 05-88-4104TheaHlkzhaMkkjdxf (Bld) [Mass/Vol]on 81-57-3640Jfphkop [Mass/Vol]117 mg/aIBemn21 - 99 mg/dLOhioHealthInterpretation and review of laboratory results AbnormalOhioHealthOhioHealthGlucose [Mass/Vol]142 mg/qALpdd50 - 99 mg/dL OhioHealthInterpretation and review of laboratory resultsAbnormalOhioHealth OhioHealthGlucose [Mass/Vol]148 mg/mOTzuj03 - 99 mg/dLOhioHealthInterpretation and review of laboratory resultsAbnormalOhioHealthOhioHealthGlucose [Mass/Vol] 286 mg/fXRzlq11 - 99 mg/dLOhioHealthInterpretation and review of laboratory resultsAbnormalOhioHealthOhioHealthGlucose [Mass/Vol]343 mg/uMZhlh46 - 99 mg/dL MississippiHealthInterpretation and review of laboratory resultsAbnormalOhioHealth OhioAkron Children'S HospitalGlucose [Mass/Vol]469 mg/dLCritically high65 - 99 mg/dLOhioHealth Interpretation and review of laboratory resultsAbnormalOhioHealWVUMedicine Barnesville HospitalioAkron Children'S Hospital OhioHealthGlucose [Mass/Vol]mg/dLCritically high65 - 99 mg/dLOhioAkron Children'S Hospital Interpretation and review of laboratory resultsAbnormalOAdams County Regional Medical CenterealWVUMedicine Barnesville HospitalioAkron Children'S Hospital OhioAkron Children'S HospitalGold Topon 58-60-9184Vapwu TubeHold for add-ons.[facility]aug[facility] Medical CenterioAkron Children'S HospitalH AND Paulino 03-25-2024H AND PNormalLogansport Memorial HospitalLACTIC ACID, PLASMAon 97-10-0408TNUPRR ACID, PLASMA2.1 mmol/LHigh0.6-2.0Log[facility] HospitalComment on above:Performed By: #### [id number] ####[facility] [address] [place], [place] [address] Abbi Choudhary M.D. [id number] [Moles/Vol]on 03-25-2024 Interpretation and review of laboratory resultsAbnormSelect Medical Specialty [facility] Lactic Acid, Plasmaon 02-45-9678Axvmhpj [Moles/Vol]2.1 mmol/LHigh0.6 - 2.0 mmol/LOhioHealthPOC GLUCOSE - RALSon 03-45-6706Wzzwznc [Mass/Vol]117 mg/dLHigh 65-99MSt. Vincent Clay HospitalComment on above:Performed By: #### [id number] ####[facility] [address] [place], [place] [address] Abbi Choudhary M.D. [id number] [Mass/Vol]142 mg/jAXknt14-47EfkkwzSt. Vincent Clay HospitalComment on above:Performed By: #### [id number] ####[facility] [address] [place], [place] [address] Abbi Choudhary M.D. [id number] [Mass/Vol]148 mg/tPIqsc39-18JkthqySt. Vincent Clay Hospital Comment on above:Performed By: #### [id number] ####[facility] [address] [place], [place] [address]Alisia Choudhary M.D. [id number] [Mass/Vol]286 mg/wSGjcy28-81 [facility] HospitalComment on above:Performed By: #### [id number] ####[facility] [address] [place], [place] [address] Abbi Choudhary M.D. [id number] [Mass/Vol]343 mg/sCAjcv64-92FsovwvSt. Vincent Clay HospitalComment on above:Performed By: #### [id number] ####[facility] [address] [place], [place] [address] Abbi Choudhary M.D. [id number] [Mass/Vol]469 mg/dLOff scale [address]Comment on above:Order Comment: Critical result acted upon time of test. Test performed at bedside.Performed By: #### [id number] ####[facility] [address] [place] [address] Abbi Choudhary M.D. [id number] GLUCOSE>Off scale [address]Comment on above:Order Comment: Critical result acted upon time of test. Test performed at bedside.Performed By: #### [id number] ####[facility] [address] [place], [place] [address] Abbi Choudhary M.D. 36D0 710449WUJYWG LACTIC ACID, PLASMAon 13-95-7221UTCXRC ACID, PLASMA1.2 mmol/LNormal 0.6-2.0[facility] HospitalComment on above:Performed By: #### [id number] ####[facility] [address] [place] [address] Abbi Choudhary M.D. 3 [id number] ACID, PLASMA2.2 mmol/LHigh0.6-2.0[facility] HospitalComment on above:Performed By: #### [id number] ####[facility] [address] [place], [place] [address] Abbi Choudhary M.D. [id number] Lactic Acid, Plasmaon 33-93-8997Kjmcvofhnjukky and review of laboratory resultsNormalOhioHealthLactate [Moles/Vol]1.2 mmol/L0.6 - 2.0 mmol/LOhioHealthOhioHealthInterpretation and review of laboratory resultsAbnormalOhioHealthLactate [Moles/Vol]2.2 mmol/LHigh 0.6 - 2.0 mmol/LOhioHealthOhioHealthURINALYSISon 67-39-9010EQDYXZQB, URINERare AbnormalNone SeenLogansport Memorial HospitalComment on above:Order Comment: Microscopic examination is performed on all urinalysis samples and only positive findings are reported. The test for blood on the chemical analytic portion of urinalysis may also be positive due to hemoglobinuria and myoglobinuria and if red blood cells are present they are quantified by microscopic examination. Performed By: #### [id number] ####[facility] [address] [place] [address] Abbi Choudhary M.D. [id number], URINENegativeNormalNegSt. Vincent Fishers HospitalComment on above:Order Comment: Microscopic examination is performed on all urinalysis samples and only positive findings are reported. The test for blood on the chemical analytic portion of urinalysis may also be positive due to hemoglobinuria and myoglobinuria and if red blood cells are present they are quantified by microscopic examination.Performed By: #### [id number] ####[facility] [address] [place] [address] Abbi Choudhary M.D. [id number], URINE ModerateAbnormalNegSt. Vincent Fishers HospitalComment on above:Order Comment: Microscopic examination is performed on all urinalysis samples and only positive findings are reported. The test for blood on the chemical analytic portion of urinalysis may also be positive due to hemoglobinuria and myoglobinuria and if red blood cells are present they are quantified by microscopic examination. Performed By: #### [id number] ####[facility] [address] [place] [address] Abbi Choudhary M.D. [id number] (U)ClearNormalCWabash County Hospital Comment on above:Order Comment: Microscopic examination is performed on all urinalysis samples and only positive findings are reported. The test for blood on the chemical analytic portion of urinalysis may also be positive due to hemoglobinuria and myoglobinuria and if red blood cells are present they are quantified by microscopic examination.Performed By: #### [id number] ####[facility] [address] [place] [address] Abbi Choudhary M.D. [id number] (U)Yellow NormalColorless, [facility] on above:Order Comment: Microscopic examination is performed on all urinalysis samples and only positive findings are reported. The test for blood on the chemical analytic portion of urinalysis may also be positive due to hemoglobinuria and myoglobinuria and if red blood cells are present they are quantified by microscopic examination. Performed By: #### [id number] ####[facility] [address] [place] [address] Abbi Choudhary M.D. [id number] Ql (U)>=500AbnormalNegSt. Vincent Fishers HospitalComcovenant medical center on above:Order Comment: Microscopic examination is performed on all urinalysis samples and only positive findings are reported. The test for blood on the chemical analytic portion of urinalysis may also be positive due to hemoglobinuria and myoglobinuria and if red blood cells are present they are quantified by microscopic examination.Performed By: #### [id number] ####[facility] [address] [place] [address] Abbi Choudhary M.D. [id number] Ql (U) NegativeNormalNegSt. Vincent Fishers HospitalComcovenant medical center on above:Order Comment: Microscopic examination is performed on all urinalysis samples and only positive findings are reported. The test for blood on the chemical analytic portion of urinalysis may also be positive due to hemoglobinuria and myoglobinuria and if red blood cells are present they are quantified by microscopic examination. Performed By: #### [id number] ####[facility] [address] [place] [address] Abbi Choudhary M.D. [id number] esterase Test strip Ql (U)NegativeNormal St[facility] HospitalComcovenant medical center on above:Order Comment: Microscopic examination is performed on all urinalysis samples and only positive findings are reported. The test for blood on the chemical analytic portion of urinalysis may also be positive due to hemoglobinuria and myoglobinuria and if red blood cells are present they are quantified by microscopic examination.Performed By: #### [id number] ####[facility] [address] [place], [place] [address] Abbi Choudhary M.D. [id number], URINERareNormalNone Seen, [facility] Comment on above:Order Comment: Microscopic examination is performed on all urinalysis samples and only positive findings are reported. The test for blood on the chemical analytic portion of urinalysis may also be positive due to hemoglobinuria and myoglobinuria and if red blood cells are present they are quantified by microscopic examination.Performed By: #### 75001 ####[facility] [address] [place] [address] Abbi Choudhary M.D. [id number], URINE NegativeNormalNegSt. Vincent Fishers HospitalComment on above:Order Comment: Microscopic examination is performed on all urinalysis samples and only positive findings are reported. The test for blood on the chemical analytic portion of urinalysis may also be positive due to hemoglobinuria and myoglobinuria and if red blood cells are present they are quantified by microscopic examination. Performed By: #### [id number] ####[facility] [address] [place], [place] [address] Abbi Choudhary M.D. [id number] (U)5.0 [pH]Normal5.0-7.0[facility] Comment on above:Order Comment: Microscopic examination is performed on all urinalysis samples and only positive findings are reported. The test for blood on the chemical analytic portion of urinalysis may also be positive due to hemoglobinuria and myoglobinuria and if red blood cells are present they are quantified by microscopic examination.Performed By: #### [id number] ####[facility] [address] [place], [place] [address] Abbi Choudhary M.D. [id number] (U) [Mass/Vol]100 mg/dLAbnormalNegSt. Vincent Fishers HospitalComment on above:Order Comment: Microscopic examination is performed on all urinalysis samples and only positive findings are reported. The test for blood on the chemical analytic portion of urinalysis may also be positive due to hemoglobinuria and myoglobinuria and if red blood cells are present they are quantified by microscopic examination.Performed By: #### [id number] ####[facility] [address] [place] [address]Alisia Choudhary M.D. [id number] LM.HPF (Urine sed) [#/Area]2 /[HPF]Normal0-3MIndiana University Health [facility] Hospital on above:Order Comment: Microscopic examination is performed on all urinalysis samples and only positive findings are reported. The test for blood on the chemical analytic portion of urinalysis may also be positive due to hemoglobinuria and myoglobinuria and if red blood cells are present they are quantified by microscopic examination. Performed By: #### [id number] ####[facility] [address] [place] [address] Abbi Choudhary M.D. [id number] gravity (U) [Rel density]1.021Normal 1.005-1.025[facility] on above:Order Comment: Microscopic examination is performed on all urinalysis samples and only positive findings are reported. The test for blood on the chemical analytic portion of urinalysis may also be positive due to hemoglobinuria and myoglobinuria and if red blood cells are present they are quantified by microscopic examination.Performed By: #### [id number] ####[facility] [address] [place] [address] Abbi Choudhary M.D. [id number] EPITHELIAL2 /hpfNormal0-4[facility] on above:Order Comment: Microscopic examination is performed on all urinalysis samples and only positive findings are reported. The test for blood on the chemical analytic portion of urinalysis may also be positive due to hemoglobinuria and myoglobinuria and if red blood cells are present they are quantified by microscopic examination.Performed By: #### [id number] ####[facility] [address] [place] [address] Abbi Choudhary M.D. [id number], URINE<2.0Normal<2.0[facility] on above:Order Comment: Microscopic examination is performed on all urinalysis samples and only positive findings are reported. The test for blood on the chemical analytic portion of urinalysis may also be positive due to hemoglobinuria and myoglobinuria and if red blood cells are present they are quantified by microscopic examination. Performed By: #### [id number] ####[facility] [address] [place], [place] [address] Abbi Choudhary M.D. [id number] LM.HPF (Urine sed) [#/Area]5 /[HPF]Normal0-5[facility] HospitalComment on above:Order Comment: Microscopic examination is performed on all urinalysis samples and only positive findings are reported. The test for blood on the chemical analytic portion of urinalysis may also be pos itive due to hemoglobinuria and myoglobinuria and if red blood cells are present they are quantified by microscopic examination.Performed By: #### [id number] ####[facility] [address] [place], [place] [address] Abbi Choudhary M.D. [id number] AEROBIC CULTUREon 13-50-3583IEFPK AEROBIC CULTUREAbMedical Center of Southern [facility] Comment on above:Performed By: #### [id number] ####[facility] [address] [place] [address] Swapnil Brewer M.D. [id number] By: Navneet Parr on 56-19-1827Uswfevwf Auto Ql (U) RareAbnormalNone Seen /hpfOhioHealthBilirubin Ql [...] - 1.025OhioHealthUrobilinogen (U) [Mass/Vol]mg/dLNINF - 2.0 mg/dL OhioAkron Children'S HospitalWBC Auto (Urine sed) [#/Area]5OhioHealthOhioHealthOhioHealthWOUND AEROBIC AND ANAEROBIC CULTUREon 85-68-0612TIZDD AEROBIC AND ANAEROBIC CULTURE CULTURE No Growth after 5 days GRAM STAIN RESULT Few WBC Many RBC No Organisms SeenNoIndiana University Health Blackford HospitalComment on above:Performed By: #### [id number] ####[facility] [address] [place], [place] [address] Swapnil Brewer M.D. [id number] AEROBIC AND ANAEROBIC CULTUREAbnoIndiana University Health Blackford HospitalComment on above:Performed By: #### [id number] ####[facility] [address] [place] [address] Swapnil Brewer M.D. [id number] METABOLIC PANEL on 13-16-7437Lvqfk gap [Moles/Vol]20 mmol/YLjvnkb85-77JkxnlxLogansport Memorial Hospital Comment on above:Order Comment: [facility] has implemented the eGFR calculation approach that does not have a coefficient for race that conforms to the NKF-ASN Task Force Recommendations.Performed By: #### [id number] ####[facility] [address] [place] [address] Abbi Choudhary M.D. 36D0 153234Ebhjgyw [Mass/Vol]9.3 mg/dLNormal8.4-10.2MSt. Vincent Clay HospitalComment on above:Order Comment: [facility] has implemented the eGFR calculation approach that does not have a coefficient for race that conforms to the NKF-ASN Task Force Recommendations.Performed By: #### [id number] ####[facility] [address] [place], [place] [address] Abbi Choudhary M.D. [id number] [Moles/Vol]97 mmol/VVfl13-058KhsuctKing's Daughters Hospital and Health Services on above:Order Comment: [facility] has implemented the eGFR calculation approach that does not have a coefficient for race that conforms to the NKF-ASN Task Force Recommendations.Performed By: #### [id number] ####[facility] [address] [place] [address] Abbi Choudhary M.D. [id number] [Mass/Vol]1.44 mg/dLHigh0.40-1.10[facility] on above:Order Comment: [facility] has implemented the eGFR calculation approach that does not have a coefficient for race that conforms to the NKF-ASN Task Force Recommendations.Performed By: #### [id number] ####[facility] [address] [place] [address] Abbi Choudhary M.D. [id number] mL/min/1.73 m2Low>=60 [facility] on above:Order Comment: [facility] has implemented the eGFR calculation approach that does not have a coefficient for race that conforms to the NKF-ASN Task Force Recommendations. Result Comment: Estimated GFR was calculated using the 2020 CKD-EPI creatinine equation.Performed By: #### [id number] ####[facility] [address] [place] [address] Abbi Choudhary M.D. [id number] [Mass/Vol]646 mg/dLOff scale high 65-99MIndiana [facility] Health [facility] Hospital on above:Order Comment: [facility] has implemented the eGFR calculation approach that does not have a coefficient for race that conforms to the NKF-ASN Task Force Recommendations.Performed By: #### 23984 ####[facility] [address] [place] [address] Abbi Choudhary M.D. [id number] (Bld) [Moles/Vol]22 mmol/L Vzmtqe06-53AqwuseKing's Daughters Hospital and Health Services on above:Order Comment: [facility] has implemented the eGFR calculation approach that does not have a coefficient for race that conforms to the NKF-ASN Task Force Recommendations.Performed By: #### [id number] ####[facility] [address] [place] [address] Abbi Choudhary M.D. [id number] [Moles/Vol]4.6 mmol/L Normal3.5-5.1MIndiana University Health Methodist Hospital on above:Order Comment: [facility] has implemented the eGFR calculation approach that does not have a coefficient for race that conforms to the NKF-ASN Task Force Recommendations.Performed By: #### [id number] ####[facility] [address] [address] Abbi Choudhary M.D. [id number] [Moles/Vol]134 mmol/LLow 135-145[facility] on above:Order Comment: [facility] has implemented the eGFR calculation approach that does not have a coefficient for race that conforms to the NKF-ASN Task Force Recommendations.Performed By: #### [id number] ####[facility] [address] [address] Abbi Choudhary M.D. [id number] nitrogen [Mass/Vol]24 mg/dL Normal8-25[facility] on above:Order Comment: [facility] has implemented the eGFR calculation approach that does not have a coefficient for race that conforms to the NKF-ASN Task Force Recommendations.Performed By: #### [id number] ####[facility] [address] [address] Abbi Choudhary M.D. [id number] nitrogen/Creatinine [Mass ratio]16.7 mg/beRezhkl19.0-20.0[facility] on above:Order Comment: [facility] has implemented the eGFR calculation approach that does not have a coefficient for race that conforms to the NKF-ASN Task Force Recommendations.Performed By: #### [id number] ####[facility] [address] [address] Abbi Choudhary M.D. [id number] GAS, VENOUSon 52-70-9954GZVR EXCESS, VENOUS-3.8Low-2.0-2.0[facility] HospitalComment on above:Performed By: #### [id number] ####[facility] [address] [place], [place] [address] Abbi Choudhary M.D. [id number] (Bld) [Moles/Vol]22.3 mmol/LLow24.0-28.0 [facility] HospitalComment on above:Performed By: #### [id number] ####[facility] [address] [address] Abbi Choudhary M.D. [id number] (Bld) [Volume fraction]40.0 %Ergmbt50.0-46.0[facility] HospitalComment on above:Performed By: #### [id number] ####[facility] [address] [address] Abbi Choudhary M.D. [id number] (Bld) [Mass/Vol]13.0 g/dLNormal 12.0-16.0[facility] HospitalComment on above:Performed By: #### [id number] ####[facility] [address] [address] Abbi Choudhary M.D. 36D0 139702Xjcxyz saturation in Blood69.9 %Noppbz32.0-70.0[facility] Comment on above:Performed By: #### [id number] ####[facility] [address] [address] Abbi Choudhary M.D. [id number] HDNVXL04.4 mm KtVgedmf50.0-51.0 [facility] HospitalComment on above:Performed By: #### [id number] ####[facility] [address] [address] Abbi Choudhary M.D. [id number] VENOUS 7.30Low7.32-7.42[facility] HospitalComment on above:Performed By: #### [id number] ####[facility] [address] [place], [place] [address] Abbi Choudhary M.D. 36D0 [id number] BXSTDA91 mm ImXqji87-27CefqfiLogansport Memorial HospitalComment on above: Performed By: #### [id number] ####[facility] [address] [place], [place] [address] Abbi Choudhary M.D. [id number] metabolic 2000 panelOrdered By: Kendra Bae on 02-41-0671Bsylq gap [Moles/Vol]20 mmol/L10 - 20 mmol/LOhioHealthCalcium [Mass/Vol]9.3 mg/dL8.4 - 10.2 mg/dLOhioHealthChloride [Moles/Vol]97 mmol/LLow98 - 108 mmol/LOhioHealthCreatinine [Mass/Vol]1.44 mg/dLHigh0.40 - 1.10 mg/dL [facility]HealthGFR/1.73 sq M.predicted CKD-EPI (S/P/Bld) [Vol rate/Area]46Low- PINF OhioHealthGlucose [Mass/Vol]646 mg/dLCritically high65 - 99 mg/dLOhioHealthHCO3 [Moles/Vol]22 mmol/L21 - 32 mmol/LOhioHealthInterpretation and review of laboratory resultsAbnormalOhioHealthPotassium [Moles/Vol]4.6 mmol/L3.5 - 5.1 mmol/LOhioHealthSodium [Moles/Vol]134 mmol/RRqn350 - 145 mmol/LOhioHealthUrea nitrogen [Mass/Vol]24 mg/dL8 - 25 mg/dLOhioHealthUrea nitrogen/Creatinine [Mass ratio]16.7 mg/mg10.0 - 20.0OhioHealthOhioHealthOhioHealthCBC Auto Differentialon 31-62-1488Fgwwerkgj (Bld) [#/Vol]0.06 10*3/uLOhioHealthBasophils/100 WBC (Bld) 0.6 %OhioHealthEosinophils [...] (Bld) [#/Vol] 9.56 10*3/uLOhioHealthOhioHealthCBC WITH AUTO DIFFERENTIALon 52-19-5351ZAYT NRBC 0.0 %[facility] HospitalComment on above:Performed By: #### [id number] ####[facility] [address] [address] Abbi Choudhary M.D. 36 [id number] NRBC ABS COUNT0.00 K/mcLNormal0.00-0.00[facility] Comment on above:Performed By: #### [id number] ####[facility] [address] [address] Abbi Choudhary M.D. [id number] ABSOLUTE COUNT0.06 K/mcL Normal0.00-0.30[facility] HospitalComment on above:Performed By: #### [id number] ####[facility] [address] [address] Abbi Choudhary M.D. [id number]/100 WBC (Bld)0.6 %[facility] HospitalComment on above:Performed By: #### [id number] ####[facility] [address] [address] Abbi Choudhary M.D. [id number] (Bld) [#/Vol]0.33 10*3/uLNormal 0.00-0.50[facility] HospitalComment on above:Performed By: #### [id number] ####[facility] [address] [address] Abbi Choudhary M.D. 36 [id number]/100 WBC (Bld)3.5 %[facility] HospitalComment on above:Performed By: #### [id number] ####[facility] [address] [address] Abbi Choudhary M.D. [id number] distribution width (RBC) [Ratio] 13.0 %Ayjvpe63.6-14.8[facility] HospitalComment on above:Performed By: #### [id number] ####[facility] [address] [address] Abbi Choudhary M.D. [id number] (Bld) [Volume fraction]37.6 %Fnbrhj14.0-46.0[facility] HospitalComment on above:Performed By: #### [id number] ####[facility] [address] [address] Abbi Choudhary M.D. [id number] (Bld) [Mass/Vol]12.5 g/wXAciuiq62.0-16.0[facility] HospitalComment on above: Performed By: #### [id number] ####[facility] [address] [address] Abbi Choudhary M.D. [id number] ABSOLUTE0.05 K/mcLNormal0.00-0.30[facility] HospitalComment on above:Performed By: #### [id number] ####[facility] [address] [address] Abbi Choudhary M.D. [id number] PERCENT0.50 % NormalLogansport Memorial HospitalComment on above:Result Comment: The IG parameter is the percentage of metamyelocytes, myelocytes and promyelocytes.An immature granulocyte count (IG) of 1% or more suggests the possibility of infection, an IG countof 3% is very likely related to an infection.Performed By: #### [id number] ####[facility] [address] [address] Abbi Choudhary M.D. 36 [id number] (Bld) [#/Vol]1.34 10*3/uLNormal0.90-4.00[facility] HospitalComment on above:Performed By: #### [id number] ####[facility] [address] [address] Abbi Choudhary M.D. [id number]/100 WBC (Bld) 14.0 %[facility] HospitalComment on above:Performed By: #### [id number] ####[facility] [address] [address] Abbi Choudhary M.D. 36 [id number] (RBC) [Entitic mass]30.3 dxKwfmxa96.0-34.0[facility] Comment on above:Performed By: #### [id number] ####[facility] [address] [address] Abbi Choudhary M.D. [id number] (RBC) [Entitic vol]91.0 fLNormal 80.0-100.0[facility] HospitalComment on above:Performed By: #### [id number] ####[facility] [address] [address] Abbi Choudhary M.D. 36 [id number] CORPUSCULAR HEMOGLOBIN CONC33.2 g/rSRvqdxw46.0-37.0[facility] HospitalComment on above:Performed By: #### [id number] ####[facility] [address] [address] Abbi Choudhary M.D. [id number] (Bld) [#/Vol] 0.43 10*3/uLNormal0.30-0.90[facility] HospitalComment on above:Performed By: #### [id number] ####[facility] [address] [address] Abbi Choudhary M.D. [id number]/100 WBC (Bld)4.5 %NormalLogansport Memorial HospitalComment on above:Performed By: #### [id number] ####[facility] [address] [address] Abbi Choudhary M.D. [id number] ABSOLUTE COUNT7.35 K/mcLHigh 1.70-7.00[facility] HospitalComment on above:Performed By: #### [id number] ####[facility] [address] [address] Abbi Choudhary M.D. 36 [id number]/100 WBC (Bld)76.9 %NormalLogansport Memorial HospitalComment on above:Performed By: #### [id number] ####[facility] [address] [address] Abbi Choudhary M.D. [id number] mean volume (Bld) [Entitic vol]9.4 fLNormal9.4-12.4[facility] HospitalComment on above:Performed By: #### [id number] ####[facility] [address] [place], [place] [address] Abbi Choudhary M.D. [id number] (Bld) [#/Vol]371 10*3/oFAojpeb726-403UpbbdvLogansport Memorial Hospital Comment on above:Performed By: #### [id number] #### LAB [address] [address] Abbi Choudhary M.D. [id number] (Bld) [#/Vol]4.13 10*6/uLNormal 4.00-5.20[facility] HospitalComment on above:Performed By: #### [id number] #### LAB [address] [address] Abbi Choudhary M.D. 36 [id number] (Bld) [#/Vol]9.56 10*3/uLNormal4.50-11.00[facility] Comment on above:Performed By: #### [id number] ####[facility] [address] [place], [place] [address] Abbi Choudhary M.D. [id number] [Mass/Vol]on 03-24-2024 Interpretation and review of laboratory resultsAbnormalOhioHealthOhioHealthCRP, INFLAMMATIONon 22-39-6384GBJ [Mass/Vol]15.1 mg/LHigh0.0-10.0[facility] HospitalComcovenant medical center on above:Performed By: #### [id number] ####[facility] [address] [address] Abbi Choudhary M.D. [id number], Inflammationon 36-09-7364FPI [Mass/Vol]15.1 mg/LHigh0.0 - 10.0 mg/LOhioHealthED Prov Noteon 59-77-7154HJ Prov NoteNoalLogansport Memorial HospitalESR Westergren method (Bld) [Velocity]on 61-63-7922YAB (Bld) [Velocity]62 mm/hHighOhioHealthInterpretation and review of laboratory resultsAbnormalOhioHealthOhioHealthGas panel (BldV)on 93-02-3548Iieh excess Calc (BldV) [Moles/Vol]-3.8000 mmol/LLow-2.0 - 2.0 OhioHealthCO2 (BldV) [Partial pressure]47.4 mm[Hg]OhioHealthHCO3 (Bld) [Moles/Vol]22.3 mmol/LLow24.0 - 28.0 mmol/LOhioHealthHematocrit (BldA) [Volume fraction]40 %36.0 - 46.0 %OhioHealthHemoglobin (Bld) [Mass/Vol]13 g/dL12.0 - 16.0 g/dLOhioHealthInterpretation and review of laboratory resultsAbnormal OhioHealthOxygen (BldV) [Partial pressure]41 mm[Hg]HighOhioHealthOxygen saturation in Venous blood69.9 %40.0 - 70.0 %OhioHealthpH (BldV)7.3 [pH]Low7.32 - 7.42OhioHealthOhioHealthHEPATIC FUNCTION PANELon 19-34-9815Axwjfiz [Mass/Vol] 4.2 g/dLNormal3.2-5.2MSt. Vincent Clay HospitalComment on above:Performed By: #### [id number] #### LAB [address] [address] Abbi Choudhary M.D. [id number] [Catalytic activity/Vol]139 U/BHwzecw90-009PrkbuaLogansport Memorial Hospital Comment on above:Performed By: #### [id number] ####[facility] [address] [address] Abbi Choudhary M.D. [id number] [Catalytic activity/Vol]16 U/L Normal0-35 U/[facility] BendComment on above:Performed By: #### [id number] #### LAB [address] [address] Abbi Choudhary M.D. 36D0 941120CZY [Catalytic activity/Vol]16 U/LNormal0-35 U/[facility] Comment on above:Performed By: #### [id number] ####[facility] [address] [address] Abbi Choudhary M.D. [id number] [Mass/Vol]0.5 mg/dLNormal 0.0-1.3MSt. Vincent Clay HospitalComment on above:Performed By: #### [id number] ####[facility] [address] [place], [place] [address] Abbi Choudhary M.D. [id number] BILIRUBIN, DIRECT<Normal0.0-0.4[facility] HospitalComment on above:Performed By: #### [id number] ####[facility] [address] [address] Abbi Choudhary M.D. [id number] [Mass/Vol]8.1 g/dLHigh6.0-8.0[facility] Comment on above:Performed By: #### [id number] ####[facility] [address] [address] Abbi Choudhary M.D. [id number] function 2000 panelon 07-89-3464Fhhipwg [Mass/Vol]4.2 g/dL3.2 - 5.2 g/dLOhioHealthALP [Catalytic activity/Vol]139 U/L40 - 150 U/LOhioHealthALT [Catalytic activity/Vol]16 U/L0-35 U/LOhioHealthAST [Catalytic activity/Vol]16 U/L0-35 U/LOhioHealthBilirubin [Mass/Vol]0.5 mg/dL0.0 - 1.3 mg/dLOhioHealthBilirubin.conjugated [Mass/Vol]mg/dL 0.0 - 0.4 mg/dLOhioHealthInterpretation and review of laboratory resultsAbnormal [facility]HealthProtein [Mass/Vol]8.1 g/dLHigh6.0 - 8.0 g/dLOhioHealthOhioHealthLACTIC ACID, WHOLE BLOODon 02-98-1208IQDRSK ACID, WHOLE BLOOD3.0 mmol/LHigh0.6-2.0 [facility] HospitalComment on above:Performed By: #### [id number] ####[facility] [address] [place], [place] [address] Abbi Choudhary M.D. [id number] (Bld) [Moles/Vol]on 88-58-9842Oallcnkxnrbdya and review of laboratory results AbnormalOhioHealthLactate [Moles/Vol]3 mmol/LHigh0.6 - 2.0 mmol/LOhioHealth [facility]field HospitalLight Blue Topon 78-42-4723Uiyuj TubeHold for add-ons.[facility] HospitalNo Panel Informationon 45-29-1673BlocQkalonEVYJYLQATZKUX RATEon 03-24-2024 SEDIMENTATION RATE, WMNRFXEZNSM73 mm/hrHigh0-20[facility] HospitalComment on above:Performed By: #### [id number] ####[facility] [address] [place], [place] [address] Abbi Choudhary M.D. [id number] 33-87-2848BKYDEAGC TROPONIN T NG/L22 ng/LOff scale high<=14[facility] HospitalComment on above:Performed By: #### [id number] ####[facility] [address] [place] [address] Abbi Choudhary M.D. [id number] T INTERPRETATIONPossible acute cardiac injury.Normal [facility] HospitalComment on above:Performed By: #### [id number] ####[facility] [address] [place], [place] [address] Abbi Choudhary M.D. [id number] 57-08-8447Pzkirbbtdhoukv and review of laboratory resultsAbnormalOhioHealth Troponin T22 ng/LCritically highNINF - 14 ng/LOhioHealthTroponin T InterpretationPossible acute cardiac injury.[facility] CenterioHealthXR Finger - left 2 Viewson 58-11-1452IM [facility] RISOhioHealthRadiology Study observation (narrative)[facility] HospitalXR Finger - left 2 ViewsOrdered By: Mayco Cortez on 48-40-4488MtllTzwual Work Phone: XR TOE(S) LEFT 2+ VIEWSon 58-08-2162AK TOE(S) LEFT 2+ VIEWSNormalLogansport Memorial HospitalComment on above:Order Comment: Injury/Trauma or Illness?:Illness/OtherHow long have you had these symptoms (acute/ch ronic)?:AcuteReason for exam?:pain/ reoccuring infectionHistory of cancer?:uSurgeries, chemotherapy, or radiation?:pacemakerType of Exam?:InitialAdditional signs and symptoms?:pain/infectionHEMOGLOBIN A1con 39-83-5265DSMJAHKGTC A1c9.9 % of total HgbHigh<5.7Quest DiagnosticsComment on [...] of diabetes for children.Performed By: #### 496, 03037 #### [facility] [address], [address] [place] [address] Coatings Inspector: Dean Maddox MDVITAMIN D,25-OH,TOTAL,IAon 30-54-3842SGXWQCR D,25-OH,TOTAL,IA11 ng/xBVrh92-026Fkeqa DiagnosticsComment on above:Result Comment: Vitamin D Status 25-OH Vitamin D: Deficiency: <20 ng/mL Insufficiency: 20 - 29 ng/mL Optimal: > or = 30 ng/mL For 25-OH Vitamin D testing on patients on D2-supplementation and patients for whom quantitation of D2 and D3 fractions is required, the QuestAssureD(TM) 25-OH VIT D, (D2,D3), LC/MS/MS is recommended: order code 33205 (patients >2yrs). See Note 1 Note 1 For additional information, please refer to http://education.[employer]/faq/CSS548 (This link is being provided for informational/ educational purposes only.)Performed By: #### 496, 79916 #### [facility] [address], [address] [place] [address] Coatings Inspector: Dean Maddox MDB12/FOLATEon 58-61-2213Xfawhhdmt (Vitamin B12) [Mass/Vol]203 pg/eZAyv601-0716GozdphLogansport Memorial HospitalComment on above:Performed By: #### [id number] ####[facility] [address] [address] Abbi Choudhary M.D. [id number] ng/mLNormal3.1-17.5[facility] HospitalComment on above:Result Comment: Deficient <2.2Borderline 2.2 - 3.0Excessive >17.5 Performed By: #### [id number] ####[facility] [address] [address] Abbi Choudhary M.D. [id number]/Folateon 90-04-7778Fiijkbvoi (Vitamin B12) [Mass/Vol]203 pg/mQYaf262 - 1245 pg/mLOhioHealthFolate [Mass/Vol]9.1 ng/mL3.1 - 17.5 ng/mLOhioHealthComment on above:Deficient <2.2 Borderline 2.2 - 3.0 Excessive >17.5 Interpretation and review of laboratory resultsAbnormalOhioHealthOhioHealth HEPATIC FUNCTION PANELon 36-27-1701Dzzcyve [Mass/Vol]4.0 g/dLNormal3.2-5.2MSt. Vincent Clay HospitalComment on above:Performed By: #### 10040 ####[facility] [address] [address] Abbi Choudhary M.D. [id number] [Catalytic activity/Vol]139 U/FNmqucv75-812XvjmxxLogansport Memorial HospitalComment on above: Performed By: #### 40163 ####[facility] [address] [place], [place] [address] Abbi Choudhary M.D. [id number] [Catalytic activity/Vol]13 U/LNormal0-35 U/[facility] HospitalComment on above:Performed By: #### [id number] ####[facility] [address] [address] Abbi Choudhary M.D. [id number] [Catalytic activity/Vol]17 U/LNormal0-35 U/[facility] HospitalComment on above:Result Comment: Slightly HemolyzedPerformed By: #### [id number] ####[facility] [address] [place], [place] [address] Abbi Choudhary M.D. [id number] [Mass/Vol]0.4 mg/dLNormal0.0-1.3[facility] HospitalComment on above:Performed By: #### 79439 ####[facility] [address] [address] Abbi Choudhary M.D. [id number], DIRECT<Normal0.0-0.4[facility] HospitalComment on above:Performed By: #### [id number] ####[facility] [address] [address] Abbi Choudhray M.D. [id number] [Mass/Vol]7.3 g/dLNormal6.0-8.0[facility] HospitalComment on above:Performed By: #### [id number] ####[facility] [address] [address] Abbi Choudhary M.D. [id number] function 1999 panelOrdered By: Shy Chou on 73-77-2113Vqyjmpj [Mass/Vol]4.0 g/dL 3.2 - 5.2 g/dLOhioHealthALP [Catalytic activity/Vol]139 U/L40 - 150 U/L OhioHealthALT [Catalytic activity/Vol]13 U/L0-35 U/LOhioHealthAST [Catalytic activity/Vol]17 U/L0-35 U/LOhioHealthComment on above:Slightly Hemolyzed Bilirubin [Mass/Vol]0.4 mg/dL0.0 - 1.3 mg/dLOhioHealthBilirubin.conjugated [Mass/Vol]mg/dL0.0 - 0.4 mg/dLOhioHealthInterpretation and review of laboratory resultsNormalOhioHealthProtein [Mass/Vol]7.3 g/dL6.0 - 8.0 g/dLOhioHealth Ohio[facility] Mansfield HospitalT4, [facility] 41-87-9744Gqvw T4 [Mass/Vol]0.9 ng/dLNormal0.7-1.7[facility] HospitalComment on above:Performed By: #### 78841 ####[facility] [address] [address] Abbi Choudhary M.D. [id number] WITH REFLEX FREE T4on 79-02-9980LQG Qn4.58 m[IU]/LHigh0.27-4.20[facility] Comment on above:Performed By: #### 89569 ####[facility] [address] [address] Abbi Choudhary M.D. [id number] 60-33-0971OULO NRBC0.0 %Normal [facility] HospitalComment on above:Performed By: #### [id number] ####[facility] [address] [address] Abbi Choudhary M.D. [id number] NRBC ABS COUNT0.00 K/mcLNormal0.00-0.00[facility] HospitalComment on above: Performed By: #### [id number] ####[facility] [address] [address] Abbi Choudhary M.D. [id number] distribution width (RBC) [Ratio]12.9 % Zzgvcy22.6-14.8[facility] HospitalComment on above:Performed By: #### [id number] ####[facility] [address] [place] [address]Alisia Choudhary M.D. 36D0 [id number] (Bld) [Volume fraction]29.3 %Low36.0-46.0[facility] HospitalComment on above:Performed By: #### 61280 ####[facility] [address] [address] Abbi Choudhary M.D. [id number] (Bld) [Mass/Vol]9.1 g/dLLow12.0-16.0[facility] HospitalComment on above:Performed By: #### 01403 ####[facility] [address] [address] Abbi Choudhary M.D. [id number] (RBC) [Entitic mass]30.2 mwEtylkm44.0-34.0[facility] Comment on above:Performed By: #### [id number] ####[facility] [address] [place] [address] Abbi Choudhary M.D. [id number] (RBC) [Entitic vol]97.3 fLNormal 80.0-100.0[facility] HospitalComment on above:Performed By: #### [id number] ####[facility] [address] [place] [address] Abbi Choudhary M.D. 36D0 686364GPOJ CORPUSCULAR HEMOGLOBIN CONC31.1 g/eCCltqjs61.0-37.0[facility] HospitalComment on above:Performed By: #### [id number] ####[facility] [address] [place] [address] Abbi Choudhary M.D. [id number] mean volume (Bld) [Entitic vol]9.1 fLLow9.4-12.4[facility] HospitalComment on above:Performed By: #### [id number] ####[facility] [address] [place] [address] Abbi Choudhary M.D. [id number] (Bld) [#/Vol]255 10*3/rVKfwhau264-631AiwzveLogansport Memorial HospitalComment on above:Performed By: #### 98318 ####[facility] [address] [place] [address] Abbi Choudhary M.D. [id number] (Bld) [#/Vol]3.01 10*6/uL Low4.00-5.20[facility] HospitalComment on above:Performed By: #### [id number] ####[facility] [address] [place] [address] Abbi Choudhary M.D. 36D0 899862ROD (Bld) [#/Vol]7.67 10*3/uLNormal4.50-11.00[facility] Comment on above:Performed By: #### [id number] ####[facility] [address] [place] [address] Abbi Choudhary M.D. [id number] panel Auto (Bld)on 01-18-2024 Erythrocyte distribution width (RBC) [Entitic vol]12.9 %11.6 - 14.8 %[facility] Hematocrit (Bld) [Volume fraction]29.3 %Low36.0 - 46.0 [...] [#/Vol]3.01 10*6/uLLowOhioHealthWBC (Bld) [#/Vol]7.67 10*3/uLOhioHealthOhioHealthDisch [facility] 57-00-0401RgjkhCleveland Clinic Medina HospitalGlucose (Bld) [Mass/Vol]on 22-27-1351Eelxhet [Mass/Vol]82 mg/dL65 - 99 mg/dLOhioHealthInterpretation and review of laboratory results NormalOhioHealthOhioHealthGlucose [Mass/Vol]71 mg/dL65 - 99 mg/dLOhioHealth Interpretation and review of laboratory resultsNormalOhioHealthOhioHealthGlucose [Mass/Vol]66 mg/dL65 - 99 mg/dLOhioHealthInterpretation and review of laboratory resultsNormalOPremier Health Upper [facility] GLUCOSE [facility] 01-18-2024 Glucose [Mass/Vol]82 mg/vHVsgyve55-88JkcemkSt. Vincent Clay HospitalComment on above: Performed By: #### 72677 ####[facility] [address] [place], [place] [address] Abbi Choudhary M.D. [id number] [Mass/Vol]71 mg/vKIepzza29-61[address] [place], [place] [address]Comment on above:Performed By: #### 80165 ####[facility] [address] [place], [place] [address] Abbi Choudhary M.D. [id number] [Mass/Vol]66 mg/dL Rhnogd50-65QxhqxaSt. Vincent Clay HospitalComment on above:Performed By: #### 80400 ####[facility] [address] [place], [place] [address] Abbi Choudhary M.D. 36D0 515562LLFNM FUNCTION PANELon 27-17-2673Yqekgcw [Mass/Vol]3.2 g/dLNormal3.2-5.2 [facility] HospitalComment on above:Order Comment: [facility] has implemented the eGFR calculation approach that does not have a coefficient for race that conforms to the NKF-ASN Task Force Recommendations. Performed By: #### [id number] ####[facility] [address] [place], [place] [address] Abbi Choudhary M.D. [id number] gap [Moles/Vol]12 mmol/KQakrzy46-87LjerqrLogansport Memorial HospitalComment on above:Order Comment: [facility] has implemented the eGFR calculation approach that does not have a coefficient for race that conforms to the NKF-ASN Task Force Recommendations.Performed By: #### [id number] ####[facility] [address] [place], [place] [address] Abbi Choudhary M.D. [id number] [Mass/Vol]8.6 mg/dLNormal8.4-10.2MSt. Vincent Clay Hospital Comment on above:Order Comment: [facility] has implemented the eGFR calculation approach that does not have a coefficient for race that conforms to the NKF-ASN Task Force Recommendations.Performed By: #### [id number] ####[facility] [address] [place], [place] [address] Abbi Choudhary M.D. 36D0 [id number] [Moles/Vol]112 mmol/JVvtw08-322HlbraxKing's Daughters Hospital and [facility] Services on above:Order Comment: [facility] has implemented the eGFR calculation approach that does not have a coefficient for race that conforms to the NKF-ASN Task Force Recommendations.Performed By: #### [id number] ####[facility] [facility] [address] [address] Abbi Choudhary M.D. [id number] [Mass/Vol]1.67 mg/dLHigh0.40-1.10[facility] on above:Order Comment: [facility] has implemented the eGFR calculation approach that does not have a coefficient for race that conforms to the NKF-ASN Task Force Recommendations.Performed By: #### [id number] ####[facility] [address] [place], [place] [address] Abbi Choudhary M.D. [id number] mL/min/1.73 m2Low >=60[facility] on above:Order Comment: [facility] has implemented the eGFR calculation approach that does not have a coefficient for race that conforms to the NKF-ASN Task Force Recommendations. Result Comment: Estimated GFR was calculated using the 2020 CKD-EPI creatinine equation.Performed By: #### [id number] ####[facility] [address] [place], [place] [address] Abbi Choudhary M.D. [id number] [Mass/Vol]78 mg/pBLagfzz38-32IhfiquIndiana University Health Methodist Hospital on above:Order Comment: [facility] has implemented the eGFR calculation approach that does not have a coefficient for race that conforms to the NKF-ASN Task Force Recommendations.Performed By: #### [id number] ####[facility] [address] [place], [place] [address] Abbi Choudhary M.D. [id number] (Bld) [Moles/Vol]24 mmol/IMbfdgo22-53ZexaniLogansport Memorial Hospital Comment on above:Order Comment: [facility] has implemented the eGFR calculation approach that does not have a coefficient for race that conforms to the NKF-ASN Task Force Recommendations.Performed By: #### [id number] ####[facility] [address] [address] Abbi Choudhary M.D. 36D0 482147Gltpssghv [Mass/Vol]3.9 mg/dLNormal2.7-4.5[facility] on above:Order Comment: [facility] has implemented the eGFR calculation approach that does not have a coefficient for race that conforms to the NKF-ASN Task Force Recommendations.Performed By: #### [id number] ####[facility] [address] [place] [address] Abbi Choudhary M.D. [id number] [Moles/Vol]4.6 mmol/LNormal3.5-5.1MSt. Vincent Clay HospitalComment on above:Order Comment: [facility] has implemented the eGFR calculation approach that does not have a coefficient for race that conforms to the NKF-ASN Task Force Recommendations.Performed By: #### [id number] ####[facility] [address] [place] [address] Abbi Choudhary M.D. [id number] [Moles/Vol]143 mmol/IMxikgh892-008LshtveLogansport Memorial HospitalComcovenant medical center on above:Order Comment: [facility] has implemented the eGFR calculation approach that does not have a coefficient for race that conforms to the NKF-ASN Task Force Recommendations.Performed By: #### [id number] ####[facility] [address] [address] Abbi Choudhary M.D. [id number] nitrogen [Mass/Vol]34 mg/dLHigh8-25[facility] on above:Order Comment: [facility] has implemented the eGFR calculation approach that does not have a coefficient for race that conforms to the NKF-ASN Task Force Recommendations.Performed By: #### [id number] ####[facility] [address] [place], [place] [address] Abbi Choudhary M.D. [id number] nitrogen/Creatinine [Mass ratio]20.4 mg/gjJhxs13.0-20.0[facility] Memorial HospitalComment on above:Order Comment: [facility] has implemented the eGFR calculation approach that does not have a coefficient for race that conforms to the NKF-ASN Task Force Recommendations.Performed By: #### [id number] ####[facility] [address] [place], [place] [address] Abbi Choudhary M.D. [id number] function 2000 panel on 22-39-1633Rirjmui [Mass/Vol]3.2 g/dL3.2 - 5.2 g/dLOhioHealthAnion gap [Moles/Vol]12 [...] - 25 mg/dLOhioHealth Urea nitrogen/Creatinine [Mass ratio]20.4 mg/uuYpcj40.0 - 20.0[facility] has implemented the eGFR calculation approach that does not have a coefficient for race that conforms to the NKF-ASN Task Force Recommendations.[facility] HospitalOhioHealthUS Kidney - bilateral and Urinary bladderon 01-18-2024 1. Normal renal ultrasound. [employer] Workstation ID: [id number] RISEXAMINATION: US RENAL AND [...] 80 mL IMPRESSION: 1. Normal renal ultrasound. [employer] Workstation ID: [id number] [facility] HospitalUS Kidney - bilateral and Urinary bladderOrdered By: Anant Bonds on 85-20-1129DxzaHzajuk Work Phone: CBAtrium Health University City [phone] NRBC0.0 %[facility] HospitalComment on above:Performed By: #### [id number] ####[facility] [address] [address] Abbi Choudhary M.D. [id number] NRBC ABS COUNT0.00 K/mcL Normal0.00-0.00[facility] HospitalComment on above:Performed By: #### [id number] ####[facility] [address] [address] Abbi Choudhary M.D. 36D0 [id number] distribution width (RBC) [Ratio]13.1 %Syldlw84.6-14.8[facility] HospitalComment on above:Performed By: #### [id number] ####[facility] [address] [address] Abbi Choudhary M.D. [id number] (Bld) [Volume fraction]28.9 %Low36.0-46.0[facility] HospitalComment on above: Performed By: #### [id number] ####[facility] [address] [address] Abbi Choudhary M.D. [id number] (Bld) [Mass/Vol]9.3 g/dLLow12.0-16.0[facility] HospitalComment on above:Performed By: #### [id number] ####[facility] [address] [address] Abbi Choudhary M.D. [id number] (RBC) [Entitic mass]30.9 jjOrsgqh82.0-34.0[facility] HospitalComment on above: Performed By: #### [id number] ####[facility] [address] [address] Abbi Choudhary M.D. [id number] (RBC) [Entitic vol]96.0 cQJqdgge88.0-100.0[facility] HospitalComment on above:Performed By: #### [id number] ####[facility] [address] [address] Abbi Choudhary M.D. [id number] CORPUSCULAR HEMOGLOBIN CONC32.2 g/tBRifobo12.0-37.0[facility] HospitalComment on above: Performed By: #### [id number] ####[facility] [address] [address] Abbi Choudhary M.D. [id number] mean volume (Bld) [Entitic vol]9.9 fLNormal 9.4-12.4[facility] HospitalComment on above:Performed By: #### [id number] ####[facility] [address] [address] Abbi Choudhary M.D. [id number] Platelets (Bld) [#/Vol]259 10*3/eOSyqtyd772-629PvysjnLogansport Memorial HospitalComment on above:Performed By: #### [id number] ####[facility] [address] [address] Abbi Choudhary M.D. [id number] (Bld) [#/Vol]3.01 10*6/uLLow4.00-5.20 [facility] HospitalComcovenant medical center on above:Performed By: #### [id number] ####[facility] [address] [address] Abbi Choudhary M.D. [id number] (Bld) [#/Vol]7.74 10*3/uLNormal4.50-11.00[facility] HospitalComcovenant medical center on above: Performed By: #### 48846 ####[facility] [address] [address] Abbi Choudhary M.D. [id number] panel Auto (Bld)on 26-46-4439Nvmurefrhxa distribution width (RBC) [Entitic vol]13.1 %11.6 - [...] [#/Vol] 7.74 10*3/uLOhioHealthOhioHealthCT HEAD WITHOUT CONTRAST (STROKE)on 94-05-5530ZY HEAD WITHOUT CONTRAST (STROKE)[facility] HospitalComment on above: Order Comment: Injury/Trauma [...] or acute intracranial process. Workstation ID: [id number] [facility] HospitalRadiology Study observation (narrative)OhioHealthCT Head WO contrast Ordered By: Elvis Mae on 91-46-6072AqacDmxqpp Work Phone: Glucose (Bld) [Mass/Vol]on 40-56-9587Qgiregh [Mass/Vol]87 mg/dL65 - 99 mg/dLOhioHealthInterpretation and review of laboratory resultsNormalOhioHealthOhioHealthGlucose [Mass/Vol]255 mg/jTIizm60 - 99 mg/dL OhioHealthInterpretation and review of laboratory resultsAbnormalOhioHealth OhioHealthGlucose [Mass/Vol]93 mg/dL65 - 99 mg/dLOhioHealthInterpretation and review of laboratory resultsNormalOhioHealthOhioHealthGlucose [Mass/Vol]58 mg/dL Low65 - 99 mg/dLOhioHealthInterpretation and review of laboratory results AbnormalOhioHealthOhioHealthGlucose [Mass/Vol]86 mg/dL65 - 99 mg/dLOhioHealth Interpretation and review of laboratory resultsNormalOhioHealthGaioHealthPOC GLUCOSE - RALSon 06-09-6992Beaetcz [Mass/Vol]87 mg/vMZzqpbc79-38Llzmyr General HospitalComment on above:Performed By: #### [id number] ####[facility] [address] [address] Abbi Choudhary M.D. [id number] [Mass/Vol]255 mg/dL Pgmz65-17Xywgbn [facility] HospitalComment on above:Performed By: #### 86360 ####[facility] [address] [place], [place] [address] Abbi Choudhary M.D. 36D0 120266Fqtxccs [Mass/Vol]93 mg/yBKvqwpg54-46Zmljjx [facility] HospitalComment on above:Performed By: #### 47470 ####[facility] [address] [address] Abbi Choudhary M.D. [id number] [Mass/Vol]58 mg/lRKyj45-88Kcdtsy General HospitalComment on above:Performed By: #### 22781 ####[facility] [address] [place], [place] [address] Abbi Choudhary M.D. [id number] [Mass/Vol]86 mg/lRRgdlct69-39CokzlfSt. Vincent Clay HospitalComment on above:Performed By: #### 65535 ####[facility] [address] [place], [place] [address] Abbi Choudhary M.D. 36D0 [id number] FUNCTION PANELon 95-93-9047Ulorsai [Mass/Vol]3.2 g/dLNormal3.2-5.2 [facility] HospitalComment on above:Order Comment: [facility] has implemented the eGFR calculation approach that does not have a coefficient for race that conforms to the NKF-ASN Task Force Recommendations. Performed By: #### [id number] ####[facility] [address] [address] Abbi Choudhary M.D. [id number] gap [Moles/Vol]12 mmol/DIfsafn52-19XxmnloLogansport Memorial HospitalComcovenant medical center on above:Order Comment: [facility] has implemented the eGFR calculation approach that does not have a coefficient for race that conforms to the NKF-ASN Task Force Recommendations.Performed By: #### [id number] ####[facility] [address] [address] Abbi Choudhary M.D. [id number] [Mass/Vol]8.6 mg/dLNormal8.4-10.2MSt. Vincent Clay Hospital Comment on above:Order Comment: [facility] has implemented the eGFR calculation approach that does not have a coefficient for race that conforms to the NKF-ASN Task Force Recommendations.Performed By: #### 57242 ####[facility] [address] [place], [place] [address] Abbi Choudhary M.D. 36D0 [id number] [Moles/Vol]113 mmol/EZkqg69-546KkaqaaKing's Daughters Hospital and Health Services on above:Order Comment: [facility] has implemented the eGFR calculation approach that does not have a coefficient for race that conforms to the NKF-ASN Task Force Recommendations.Performed By: #### 60485 ####[facility] [address] [address] Abbi Choudhary M.D. [id number] [Mass/Vol]1.69 mg/dLHigh0.40-1.10[facility] HospitalComment on above:Order Comment: [facility] has implemented the eGFR calculation approach that does not have a coefficient for race that conforms to the NKF-ASN Task Force Recommendations.Performed By: #### [id number] ####[facility] [address] [address] Abbi Choudhary M.D. [id number] mL/min/1.73 m2Low >=60[facility] Memorial HospitalComment on above:Order Comment: [facility] has implemented the eGFR calculation approach that does not have a coefficient for race that conforms to the NKF-ASN Task Force Recommendations. Result Comment: Estimated GFR was calculated using the 2020 CKD-EPI creatinine equation.Performed By: #### [id number] ####[facility] [address] [place] [address] Abbi Choudhary M.D. [id number] [Mass/Vol]127 mg/nBZusg87-46WrliujSt. Vincent Clay HospitalComcovenant medical center on above:Order Comment: [facility] has implemented the eGFR calculation approach that does not have a coefficient for race that conforms to the NKF-ASN Task Force Recommendations.Performed By: #### [id number] ####[facility] [address] [address] Abbi Choudhary M.D. [id number] (Bld) [Moles/Vol]23 mmol/GNidglq62-02EaiyalLogansport Memorial Hospital Comment on above:Order Comment: [facility] has implemented the eGFR calculation approach that does not have a coefficient for race that conforms to the NKF-ASN Task Force Recommendations.Performed By: #### 91021 ####[facility] [address] [place], [place] [address] Abbi Choudhary M.D. 36D0 [id number] [Mass/Vol]3.7 mg/dLNormal2.7-4.5Log[facility]port Memorial HospitalComcovenant medical center on above:Order Comment: [facility] has implemented the eGFR calculation approach that does not have a coefficient for race that conforms to the NKF-ASN Task Force Recommendations.Performed By: #### 64015 ####[facility] [address] [address] Abbi Choudhary M.D. [id number] [Moles/Vol]4.8 mmol/LNormal3.5-5.1MIndiana University Health Methodist Hospital on above:Order Comment: [facility] has implemented the eGFR calculation approach that does not have a coefficient for race that conforms to the NKF-ASN Task Force Recommendations.Result Comment: Slightly HemolyzedPerformed By: #### 32556 ####[facility] [address] [address] Abbi Choudhary M.D. [id number] [Moles/Vol]143 mmol/UKuxyiy354-750FtourhLogansport Memorial Hospital Comment on above:Order Comment: [facility] has implemented the eGFR calculation approach that does not have a coefficient for race that conforms to the NKF-ASN Task Force Recommendations.Performed By: #### [id number] ####[facility] [address] [address] Abbi Choudhary M.D. 36D0 [id number] nitrogen [Mass/Vol]30 mg/dLHigh8-25[facility] on above:Order Comment: [facility] has implemented the eGFR calculation approach that does not have a coefficient for race that conforms to the NKF-ASN Task Force Recommendations.Performed By: #### 48116 ####[facility] [address] [place], [place] [address] Abbi Choudhary M.D. [id number] nitrogen/Creatinine [Mass ratio]17.8 mg/vyAngpph36.0-20.0[facility] Comment on above:Order Comment: [facility] has implemented the eGFR calculation approach that does not have a coefficient for race that conforms to the NKF-ASN Task Force Recommendations.Performed By: #### 19086 ####[facility] [address] [place], [place] [address] Abbi Choudhary M.D. 36D0 [id number] function 1999 panelOrdered By: Janelle Juarez on 47-92-5448Xeupolx [Mass/Vol]3.2 g/dL3.2 - 5.2 g/dLOhioHealthAnion gap [Moles/Vol]12 mmol/L10 - 20 mmol/LOhioHealthCalcium [Mass/Vol]8.6 mg/dL8.4 - 10.2 mg/dLOhioHealthChloride [Moles/Vol]113 mmol/LHigh98 - 108 mmol/LOhioHealthCreatinine [Mass/Vol]1.69 mg/dLHigh0.40 - 1.10 mg/dLOhioHealthGFR/1.73 sq M.predicted CKD-EPI (S/P/Bld) [Vol rate/Area]38Low- PINFOhioHealthComment on above:Estimated GFR was calculated using the 2020 CKD-EPI creatinine equation.Glucose [Mass/Vol]127 mg/dFNapd46 - 99 mg/dLOhioHealthHCO3 [Moles/Vol]23 mmol/L21 - 32 mmol/L MississippiHealthInterpretation and review of laboratory resultsAbnormalOhioHealth Phosphate [Mass/Vol]3.7 mg/dL2.7 - 4.5 mg/dLOhioHealthPotassium [Moles/Vol]4.8 mmol/L3.5 - 5.1 mmol/LOhioHealthComment on above:Slightly HemolyzedSodium [Moles/Vol]143 mmol/L135 - 145 mmol/LOhioHealthUrea nitrogen [Mass/Vol]30 mg/dL High8 - 25 mg/dLOhioHealthUrea nitrogen/Creatinine [Mass ratio]17.8 mg/mg10.0 - 20.0[facility] CenterioAkron [facility] has implemented the eGFR calculation approach that does not have a coefficient for race that conforms to the NKF-ASN Task Force Recommendations.MississippiHealthOhioHealthCBCon 96-53-2936GYLY NRBC0.0 %NormalLogansport Memorial HospitalComment on above:Performed By: #### [id number] ####[facility] [address] [address] Abbi Choudhary M.D. 36D0 [id number] NRBC ABS COUNT0.00 K/mcLNormal0.00-0.00[facility] HospitalComment on above:Performed By: #### [id number] #### [facility] [address] [address] Abbi Choudhary M.D. [id number] distribution width (RBC) [Ratio] 13.1 %Uztdgc63.6-14.8[facility] HospitalComment on above:Performed By: #### 95262 ####[facility] [address] [address] Abbi Choudhary M.D. [id number] (Bld) [Volume fraction]30.1 %Low36.0-46.0[facility] HospitalComment on above:Performed By: #### 34447 ####[facility] [address] [address] Abbi Choudhary M.D. [id number] (Bld) [Mass/Vol]9.4 g/dLLow12.0-16.0[facility] HospitalComment on above:Performed By: #### [id number] #### [facility] [address] [address] Abbi Choudhary M.D. [id number] (RBC) [Entitic mass]30.1 mrXpkifh44.0-34.0[facility] Comment on above:Performed By: #### 62014 ####[facility] [address] [address] Abbi Choudhary M.D. [id number] (RBC) [Entitic vol]96.5 fLNormal 80.0-100.0[facility] HospitalComment on above:Performed By: #### 91457 ####[facility] [address] [address] Abbi Choudhary M.D. 36D0 [id number] CORPUSCULAR HEMOGLOBIN CONC31.2 g/oFNgebsy40.0-37.0[facility] HospitalComment on above:Performed By: #### 19106 ####[facility] [address] [address] Abbi Choudhary M.D. [id number] mean volume (Bld) [Entitic vol]9.1 fLLow9.4-12.4[facility] HospitalComment on above:Performed By: #### 50024 ####[facility] [address] [address] Abbi Choudhary M.D. [id number] (Bld) [#/Vol]285 10*3/mZSqshuz920-050LorytfLogansport Memorial HospitalComment on above:Performed By: #### [id number] ####[facility] [address] [address] Abbi Choudhary M.D. [id number] (Bld) [#/Vol]3.12 10*6/uL Low4.00-5.20[facility] HospitalComment on above:Performed By: #### [id number] ####[facility] [address] [address] Abbi Choudhary M.D. 36D0 [id number] (Bld) [#/Vol]8.82 10*3/uLNormal4.50-11.00[facility] Comment on above:Performed By: #### [id number] ####[facility] [address] [address] Abbi Choudhary M.D. [id number] panel Auto (Bld)on 01-16-2024 Erythrocyte distribution width (RBC) [Entitic vol]13.1 %11.6 - 14.8 %[facility] Hematocrit (Bld) [Volume fraction]30.1 %Low36.0 - 46.0 %OhioAkron Children'S HospitalHemoglobin (Bld) [Mass/Vol]9.4 g/dLLow12.0 - 16.0 g/dLOhioHealthInterpretation and review of laboratory resultsAbnormalOhioHealthMCH (RBC) [Entitic mass]30.1 pg26.0 - 34.0 pgOhioHealthMCHC (RBC) [Mass/Vol]31.2 g/dL31.0 - 37.0 g/dLOhioHealthMCV (RBC) [Entitic vol]96.5 fL80.0 - 100.0 fLOhioHealthNucleated RBC (Bld) [#/Vol] 0.00 10*3/uLOhioHealthNucleated RBC/100 WBC (Bld) [Ratio]0.0 %OhioHealthPlatelet mean volume (Bld) [Entitic vol]9.1 fLLow9.4 - 12.4 fLOhioHealthPlatelets (Bld) [#/Vol]285 10*3/uLOhioHealthRBC (Bld) [#/Vol]3.12 10*6/uLLowOhioHealthWBC (Bld) [#/Vol]8.82 10*3/uLOhioHealthOhioHealthCONSULTon 10-61-1407SIQOFAINmtczdWuvpab General HospitalGlucose (Bld) [Mass/Vol]on 63-77-2362Qdyiazk [Mass/Vol]211 mg/dL High65 - 99 mg/dLOhioHealthInterpretation and review of laboratory results AbnormalOhioHealthOhioHealthGlucose [Mass/Vol]106 mg/sUEfga48 - 99 mg/dL OhioHealthInterpretation and review of laboratory resultsAbnormalOhioHealth OhioHealthGlucose [Mass/Vol]222 mg/mWYczs15 - 99 mg/dLOhioHealthInterpretation and review of laboratory resultsAbnormalOhioHealWVUMedicine Barnesville HospitalioHealthGlucose [Mass/Vol]69 mg/dL65 - 99 mg/dLOhioHealthInterpretation and review of laboratory results NormalOhioHealthOhioHealthPOC GLUCOSE - [facility] CENTERSon 22-41-4093Zpqltzi [Mass/Vol]211 mg/cIUwge90-51Luvjce [facility] HospitalComment on above:Performed By: #### 69635 ####[facility] [address] [place], [place] [address] Abbi Choudhary M.D. 36D0 [id number] [Mass/Vol]106 mg/xNGori51-06Oquuov [facility] HospitalComment on above:Performed By: #### [id number] ####[facility] [address] [place], [place] [address] Abbi Choudhary M.D. [id number] [Mass/Vol]222 mg/fJWfub50-73Inhhjs [facility] HospitalComment on above:Performed By: #### [id number] ####[facility] [address] [place], [place] [address] Abbi Choudhary M.D. [id number] [Mass/Vol]69 mg/hWEjjsyf19-91FzxrklIndiana University Health Methodist Hospital on above:Performed By: #### 46658 ####[facility] [address] [place], [place] [address] Abbi Choudhary M.D. [id number] FUNCTION PANELon 00-80-1927Dpqvxcq [Mass/Vol]3.3 g/dL Normal3.2-5.2MIndiana University Health Methodist Hospital on above:Order Comment: [facility] has implemented the eGFR calculation approach that does not have a coefficient for race that conforms to the NKF-ASN Task Force Recommendations.Performed By: #### 92780 ####[facility] [address] [address] Abbi Choudhary M.D. [id number] gap [Moles/Vol]12 mmol/LNormal 10-20[facility] on above:Order Comment: [facility] has implemented the eGFR calculation approach that does not have a coefficient for race that conforms to the NKF-ASN Task Force Recommendations.Performed By: #### 64237 ####[facility] [address] [address] Abbi Choudhary M.D. [id number] [Mass/Vol]8.8 mg/dLNormal 8.4-10.2MIndiana University Health [facility] Hospital on above:Order Comment: [facility] has implemented the eGFR calculation approach that does not have a coefficient for race that conforms to the NKF-ASN Task Force Recommendations.Performed By: #### 11186 ####[facility] [address] [place], [place] [address] Abbi Choudhary M.D. [id number] [Moles/Vol]111 mmol/LHigh 98-108[facility] on above:Order Comment: [facility] has implemented the eGFR calculation approach that does not have a coefficient for race that conforms to the NKF-ASN Task Force Recommendations.Performed By: #### [id number] ####[facility] [address] [place], [place] [address] Abbi Choudhary M.D. [id number] [Mass/Vol]1.63 mg/dLHigh 0.40-1.10[facility] on above:Order Comment: [facility] has implemented the eGFR calculation approach that does not have a coefficient for race that conforms to the NKF-ASN Task Force Recommendations.Performed By: #### 52625 ####[facility] [address] [address] Abbi Choudhary M.D. [id number] mL/min/1.73 m2Low>=60[facility] on above:Order Comment: [facility] has implemented the eGFR calculation approach that does not have a coefficient for race that conforms to the NKF-ASN Task Force Recommendations.Result Comment: Estimated GFR was calculated using the 2020 CKD-EPI creatinine equation. Performed By: #### [id number] ####[facility] [address] [address] Abbi Choudhary M.D. [id number] [Mass/Vol]103 mg/sROuqo13-66OmcviwIndiana University Health Methodist Hospital on above:Order Comment: [facility] has implemented the eGFR calculation approach that does not have a coefficient for race that conforms to the NKF-ASN Task Force Recommendations.Performed By: #### 72149 ####[facility] [address] [address] Abbi Choudhary M.D. [id number] (Bld) [Moles/Vol]25 mmol/GOuktye13-46DwpnqwLogansport Memorial Hospital Comment on above:Order Comment: [facility] has implemented the eGFR calculation approach that does not have a coefficient for race that conforms to the NKF-ASN Task Force Recommendations.Performed By: #### [id number] ####[facility] [address] [place], [place] [address] Abbi Choudhary M.D. 36D0 [id number] [Mass/Vol]4.1 mg/dLNormal2.7-4.5[facility] on above:Order Comment: [facility] has implemented the eGFR calculation approach that does not have a coefficient for race that conforms to the NKF-ASN Task Force Recommendations.Performed By: #### [id number] ####[facility] [address] [place] [address] Abbi Choudhary M.D. [id number] [Moles/Vol]4.5 mmol/LNormal3.5-5.1MIndiana University Health [facility] on above:Order Comment: [facility] has implemented the eGFR calculation approach that does not have a coefficient for race that conforms to the NKF-ASN Task Force Recommendations.Performed By: #### [id number] ####[facility] [address] [place] [address] Abbi Choudhary M.D. [id number] [Moles/Vol]143 mmol/TCjwgvu679-291VzckhqKing's Daughters Hospital and Health Services on above:Order Comment: [facility] has implemented the eGFR calculation approach that does not have a coefficient for race that conforms to the NKF-ASN Task Force Recommendations.Performed By: #### [id number] ####[facility] [address] [place] [address] Abbi Choudhary M.D. [id number] nitrogen [Mass/Vol]27 mg/dLHigh8-25[facility] on above:Order Comment: [facility] has implemented the eGFR calculation approach that does not have a coefficient for race that conforms to the NKF-ASN Task Force Recommendations.Performed By: #### [id number] ####[facility] [address] [place] [address] Abbi Choudhary M.D. [id number] nitrogen/Creatinine [Mass ratio]16.6 mg/pmSbdrky98.0-20.0[facility] on above:Order Comment: [facility] has implemented the eGFR calculation approach that does not have a coefficient for race that conforms to the NKF-ASN Task Force Recommendations.Performed By: #### [id number] ####[facility] [address] [place] [address] Abbi Choudhary M.D. [id number] function 2000 panel on 61-19-7901Jnypjna [Mass/Vol]3.3 g/dL3.2 - 5.2 g/dLOhioHealthAnion gap [Moles/Vol]12 mmol/L10 - 20 mmol/LOhioHealthCalcium [Mass/Vol]8.8 mg/dL8.4 - 10.2 mg/dLOhioHealthChloride [Moles/Vol]111 mmol/LHigh98 - 108 mmol/LOhioHealth Creatinine [Mass/Vol]1.63 mg/dLHigh0.40 - 1.10 mg/dLOhioHealthGFR/1.73 sq M.predicted CKD-EPI (S/P/Bld) [Vol rate/Area]39Low- PINFOhioHealthComment on above:Estimated GFR was calculated using the 2020 CKD-EPI creatinine equation. Glucose [Mass/Vol]103 mg/qDGgvc29 - 99 mg/dLOhioHealthHCO3 [Moles/Vol]25 mmol/L 21 - 32 mmol/LOhioHealthInterpretation and review of laboratory resultsAbnormal OhioHealthPhosphate [Mass/Vol]4.1 mg/dL2.7 - 4.5 mg/dLOhioHealthPotassium [Moles/Vol]4.5 mmol/L3.5 - 5.1 mmol/LOhioHealthSodium [Moles/Vol]143 mmol/L135 - 145 mmol/LOhioHealthUrea nitrogen [Mass/Vol]27 mg/dLHigh8 - 25 mg/dLOhioHealth Urea nitrogen/Creatinine [Mass ratio]16.6 mg/mg10.0 - 20.0[facility] has implemented the eGFR calculation approach that does not have a coefficient for race that conforms to the NKF-ASN Task Force Recommendations.MississippiHealthOhioHealthURINALYSISon 28-93-8520EZGBJXVF, URINERare AbnormalNone [facility] AssociationComment on above:Order Comment: Microscopic examination is performed on all urinalysis samples and only positive findings are reported. The test for blood on the chemical analytic portion of urinalysis may also be positive due to hemoglobinuria and myoglobinuria and if red blood cells are present they are quantified by microscopic examination. Performed By: #### [id number] ####[facility] [address] [place] [address] Abbi Choudhary M.D. [id number], URINENegativeNormalNegSt. Vincent Fishers HospitalComment on above:Order Comment: Microscopic examination is performed on all urinalysis samples and only positive findings are reported. The test for blood on the chemical analytic portion of urinalysis may also be positive due to hemoglobinuria and myoglobinuria and if red blood cells are present they are quantified by microscopic examination.Performed By: #### [id number] ####[facility] [address] [place] [address] Abbi Choudhary M.D. [id number], URINE NegativeNormalNegativeLogansport Memorial HospitalComment on above:Order Comment: Microscopic examination is performed on all urinalysis samples and only positive findings are reported. The test for blood on the chemical analytic portion of urinalysis may also be positive due to hemoglobinuria and myoglobinuria and if red blood cells are present they are quantified by microscopic examination. Performed By: #### [id number] ####[facility] [address] [place] [address] Abbi Choudhary M.D. [id number] (U)ClearNormalCWabash County Hospital Comment on above:Order Comment: Microscopic examination is performed on all urinalysis samples and only positive findings are reported. The test for blood on the chemical analytic portion of urinalysis may also be positive due to hemoglobinuria and myoglobinuria and if red blood cells are present they are quantified by microscopic examination.Performed By: #### [id number] ####[facility] [address] [place] [address] Abbi Choudhary M.D. [id number] (U)Yellow NormalColorless, [facility] Hospital - EvansvilleComment on above:Order Comment: Microscopic examination is performed on all urinalysis samples and only positive findings are reported. The test for blood on the chemical analytic portion of urinalysis may also be positive due to hemoglobinuria and myoglobinuria and if red blood cells are present they are quantified by microscopic examination. Performed By: #### [id number] ####[facility] [address] [place] [address] Abbi Choudhary M.D. [id number] Ql (U)50 mg/dLAbnormalNegCommunity Hospital North on above:Order Comment: Microscopic examination is performed on all urinalysis samples and only positive findings are reported. The test for blood on the chemical analytic portion of urinalysis may also be positive due to hemoglobinuria and myoglobinuria and if red blood cells are present they are quantified by microscopic examination.Performed By: #### [id number] ####[facility] [address] [place] [address] Abbi Choudhary M.D. [id number] casts LM Ql (Urine sed)3-1Uxiixxna4-3RzkkpnIndiana University Health Methodist Hospital on above:Order Comment: Microscopic examination is performed on all urinalysis samples and only positive findings are reported. The test for blood on the chemical analytic portion of urinalysis may also be positive due to hemoglobinuria and myoglobinuria and if red blood cells are present they are quantified by microscopic examination.Performed By: #### [id number] ####[facility] [address] [place] [address] Abbi Choudhary M.D. [id number] Ql (U)NegativeNormal NegativeLogansport Memorial HospitalComcovenant medical center on above:Order Comment: Microscopic examination is performed on all urinalysis samples and only positive findings are reported. The test for blood on the chemical analytic portion of urinalysis may also be positive due to hemoglobinuria and myoglobinuria and if red blood cells are present they are quantified by microscopic examination.Performed By: #### [id number] ####[facility] [address] [place] [address] Abbi Choudhary M.D. [id number] esterase Test strip Ql (U)NegativeNormalNegativeLogansport Memorial HospitalComcovenant medical center on above:Order Comment: Microscopic examination is performed on all urinalysis samples and only positive findings are reported. The test for blood on the chemical analytic portion of urinalysis may also be pos itive due to hemoglobinuria and myoglobinuria and if red blood cells are present they are quantified by microscopic examination.Performed By: #### [id number] ####[facility] [address] [place], [place] [address] Abbi Choudhary M.D. [id number], URINERareNormalNone Seen, RareKing's Daughters Hospital and Health Services on above:Order Comment: Microscopic examination is performed on all urinalysis samples and only positive findings are reported. The test for blood on the chemical analytic portion of urinalysis may also be positive due to hemoglobinuria and myoglobinuria and if red blood cells are present they are quantified by microscopic examination.Performed By: #### [id number] ####[facility] [address] [place] [address] Abbi Choudhary M.D. [id number], URINENegativeNormal NegativeKing's Daughters Hospital and Health Services on above:Order Comment: Microscopic examination is performed on all urinalysis samples and only positive findings are reported. The test for blood on the chemical analytic portion of urinalysis may also be positive due to hemoglobinuria and myoglobinuria and if red blood cells are present they are quantified by microscopic examination.Performed By: #### [id number] ####[facility] [address] [place], [place] [address] Abbi Choudhary M.D. [id number] (U)5.0 [pH]Normal5.0-7.0[facility] on above:Order Comment: Microscopic examination is performed on all urinalysis samples and only positive findings are reported. The test for blood on the chemical analytic portion of urinalysis may also be positive due to hemoglobinuria and myoglobinuria and if red blood cells are present they are quantified by microscopic examination.Performed By: #### [id number] ####[facility] [address] [place], [place] [address] Abbi Choudhary M.D. [id number] (U) [Mass/Vol]100 mg/dLAbnormalNegCommunity Hospital North on above:Order Comment: Microscopic examination is performed on all urinalysis samples and only positive findings are reported. The test for blood on the chemical analytic portion of urinalysis may also be positive due to hemoglobinuria and myoglobinuria and if red blood cells are present they are quantified by microscopic examination.Performed By: #### [id number] #### LAB [address] [place] [address] Abbi Choudhary M.D. [id number] LM.HPF (Urine sed) [#/Area]2 /[HPF]Normal0-3MIndiana [facility] Health [facility] Hospital on above:Order Comment: Microscopic examination is performed on all urinalysis samples and only positive findings are reported. The test for blood on the chemical analytic portion of urinalysis may also be positive due to hemoglobinuria and myoglobinuria and if red blood cells are present they are quantified by microscopic examination. Performed By: #### 10456 ####[facility] [address] [place] [address] Abbi Choudhary M.D. [id number] gravity (U) [Rel density]1.013Normal 1.005-1.025[facility] on above:Order Comment: Microscopic examination is performed on all urinalysis samples and only positive findings are reported. The test for blood on the chemical analytic portion of urinalysis may also be positive due to hemoglobinuria and myoglobinuria and if red blood cells are present they are quantified by microscopic examination.Performed By: #### 23271 ####[facility] [address] [place] [address] Abbi Choudhary M.D. [id number] EPITHELIAL2 /hpfNormal0-4[facility] on above:Order Comment: Microscopic examination is performed on all urinalysis samples and only positive findings are reported. The test for blood on the chemical analytic portion of urinalysis may also be positive due to hemoglobinuria and myoglobinuria and if red blood cells are present they are quantified by microscopic examination.Performed By: #### [id number] ####[facility] [address] [place] [address] Abbi Choudhary M.D. [id number], URINE<2.0Normal<2.0[facility] on above:Order Comment: Microscopic examination is performed on all urinalysis samples and only positive findings are reported. The test for blood on the chemical analytic portion of urinalysis may also be positive due to hemoglobinuria and myoglobinuria and if red blood cells are present they are quantified by microscopic examination. Performed By: #### [id number] ####[facility] [address] [place], [place] [address] Abbi Choudhary M.D. [id number] LM.HPF (Urine sed) [#/Area]1 /[HPF]Normal0-5[facility] HospitalComcovenant medical center on above:Order Comment: Microscopic examination is performed on all urinalysis samples and only positive findings are reported. The test for blood on the chemical analytic portion of urinalysis may also be pos itive due to hemoglobinuria and myoglobinuria and if red blood cells are present they are quantified by microscopic examination.Performed By: #### [id number] #### LAB [address] [place], [place] [address] Abbi Choudhary M.D. [id number] Kidney - bilateral and Urinary bladderon 26-46-8090Vykrhnzqy Study observation (narrative)[facility] RENAL AND BLADDERon 41-12-2715XR RENAL AND BLADDERNormal [facility] HospitalComcovenant medical center on above:Order Comment: Injury/Trauma or Illness?:Illness/OtherHow long have you had these symptoms (acute/ch ronic)?:AcuteReason for exam?:akiHistory of cancer?:uSurgeries, chemotherapy, or radiation?:pacemakerType of Exam?:InitialAdditional signs and symptoms?:none UrinalysisOrdered By: Caryn Schmitt on 57-82-1606Vjlqddyw Auto Ql (U) RareAbnormalNone Seen /hpfOhioHealthBilirubin Ql [...] are present they are quantified by microscopic examination.[facility] CenterioHealthCBCon 17-25-3548SRCD NRBC0.0 %NormalLogansport Memorial HospitalComment on above:Performed By: #### [id number] ####[facility] [address] [place] [address] Abbi Choudhary M.D. 36D0 [id number] NRBC ABS COUNT0.00 K/mcLNormal0.00-0.00[facility] HospitalComment on above:Performed By: #### [id number] ####[facility] [address] [place] [address] Abbi Choudhary M.D. [id number] distribution width (RBC) [Ratio] 13.1 %Ncbivg10.6-14.8[facility] Orange Countyment on above:Performed By: #### [id number] ####[facility] [address] [place], [place] [address] Abbi Choudhary M.D. [id number] (Bld) [Volume fraction]31.2 %Low36.0-46.0[facility] HospitalComment on above:Performed By: #### [id number] ####[facility] [address] [place] [address] Abbi Choudhary M.D. [id number] (Bld) [Mass/Vol]9.9 g/dLLow12.0-16.0[facility] HospitalComment on above:Performed By: #### 05266 ####[facility] [address] [place] [address] Abbi Choudhary M.D. [id number] (RBC) [Entitic mass]30.6 oaThdijy06.0-34.0[facility] Comment on above:Performed By: #### 55141 ####[facility] [address] [place] [address] Abbi Choudhary M.D. [id number] (RBC) [Entitic vol]96.3 fLNormal 80.0-100.0[facility] HospitalComment on above:Performed By: #### [id number] ####[facility] [address] [place] [address] Abbi Choudhary M.D. 36D0 290100MMDT CORPUSCULAR HEMOGLOBIN CONC31.7 g/uBYdxxiw15.0-37.0[facility] HospitalComment on above:Performed By: #### 84926 ####[facility] [address] [place] [address] Abbi Choudhary M.D. [id number] mean volume (Bld) [Entitic vol]9.3 fLLow9.4-12.4[facility] HospitalComment on above:Performed By: #### [id number] ####[facility] [address] [place] [address] Abbi Choudhary M.D. [id number] (Bld) [#/Vol]266 10*3/tNJbvdrc028-215LtzgfiLogansport Memorial HospitalComment on above:Performed By: #### 64495 ####[facility] [address] [place] [address] Abbi Choudhary M.D. [id number] (Bld) [#/Vol]3.24 10*6/uL Low4.00-5.20[facility] HospitalComment on above:Performed By: #### [id number] ####[facility] [address] [place], [place] [address] Abbi Choudhary M.D. 36D0 601109FAY (Bld) [#/Vol]7.12 10*3/uLNormal4.50-11.00[facility] Comment on above:Performed By: #### 55027 ####[facility] [address] [place], [place] [address] Abbi Choudhary M.D. [id number] panel Auto (Bld)on 01-15-2024 Erythrocyte distribution width [...] [#/Vol]7.12 10*3/uLOhioHealthOhioHealthGlucose (Bld) [Mass/Vol]on 01-15-2024 Glucose [Mass/Vol]233 mg/qUFbny69 - 99 mg/dLOhioHealthInterpretation and review of laboratory resultsAbnormPremier Health Atrium Medical CenterHealthGlucose [Mass/Vol]103 mg/dLHigh 65 - 99 mg/dLOhioHealthInterpretation and review of laboratory resultsAbnormal [facility] CenterioHealthGlucose [Mass/Vol]89 mg/dL65 - 99 mg/dLOhioHealth Interpretation and review of laboratory resultsNormalOCleveland Clinic Medina HospitalioHealthGlucose [Mass/Vol]104 mg/lWFxjt81 - 99 mg/dLOhioHealthInterpretation and review of laboratory resultsAbnoPremier Health [facility] GLUCOSE [facility] 01-15-2024 Glucose [Mass/Vol]233 mg/hNAyfp21-89Opxjcx [facility] HospitalComment on above: Performed By: #### [id number] ####[facility] [address] [place] [address] Abbi Choudhary M.D. [id number] [Mass/Vol]103 mg/jLJzdd28-61Opwafw [facility] HospitalComment on above:Performed By: #### 97636 ####[facility] [address] [place], [place] [address] Abbi Choudhary M.D. [id number] [Mass/Vol]89 mg/dL Nhvlny44-22Zjjibu [facility] HospitalComment on above:Performed By: #### [id number] #### LAB [address] [place], [place] [address] Abbi Choudhary M.D. 36D0 [id number] [Mass/Vol]104 mg/tQGujw40-89Ucfzhs [facility] HospitalComment on above:Performed By: #### 45905 #### LAB [address] [place], [place] [address] Abbi Choudhary M.D. [id number] FUNCTION PANELon 15-49-2554Jwvwodh [Mass/Vol]3.4 g/dLNormal3.2-5.2[facility] HospitalComment on above:Order Comment: [facility] has implemented the eGFR calculation approach that does not have a coefficient for race that conforms to the NKF-ASN Task Force Recommendations.Performed By: #### [id number] ####[facility] [address] [place], [place] [address] Abbi Choudhary M.D. [id number] gap [Moles/Vol]13 mmol/PNanrxo30-39QzbvhuKing's Daughters Hospital and Health Services on above:Order Comment: [facility] has implemented the eGFR calculation approach that does not have a coefficient for race that conforms to the NKF-ASN Task Force Recommendations.Performed By: #### 99354 ####[facility] [address] [place] [address] Abbi Choudhary M.D. [id number] [Mass/Vol]8.7 mg/dL Normal8.4-10.2MIndiana [facility] Health [facility] on above:Order Comment: [facility] has implemented the eGFR calculation approach that does not have a coefficient for race that conforms to the NKF-ASN Task Force Recommendations.Performed By: #### [id number] ####[facility] [address] [place], [place] [address] Abbi Choudhary M.D. [id number] [Moles/Vol]109 mmol/LHigh 98-108[facility] on above:Order Comment: [facility] has implemented the eGFR calculation approach that does not have a coefficient for race that conforms to the NKF-ASN Task Force Recommendations.Performed By: #### 01994 ####[facility] [address] [place] [address] Abbi Choudhary M.D. [id number] [Mass/Vol]1.59 mg/dLHigh 0.40-1.10[facility] on above:Order Comment: [facility] has implemented the eGFR calculation approach that does not have a coefficient for race that conforms to the NKF-ASN Task Force Recommendations.Performed By: #### 76246 ####[facility] [address] [place], [place] [address] Abbi Choudhary M.D. [id number] mL/min/1.73 m2Low>=60[facility] on above:Order Comment: [facility] has implemented the eGFR calculation approach that does not have a coefficient for race that conforms to the NKF-ASN Task Force Recommendations.Result Comment: Estimated GFR was calculated using the 2020 CKD-EPI creatinine equation. Performed By: #### 61960 ####[facility] [address] [place] [address] Abbi Choudhary M.D. [id number] [Mass/Vol]102 mg/tQPuex00-98PhimzzIndiana University Health Methodist Hospital on above:Order Comment: [facility] has implemented the eGFR calculation approach that does not have a coefficient for race that conforms to the NKF-ASN Task Force Recommendations.Performed By: #### 48404 ####[facility] [address] [place] [address] Abbi Choudhary M.D. [id number] (Bld) [Moles/Vol]25 mmol/XAlnqpo70-65RewfauLogansport Memorial Hospital Comment on above:Order Comment: [facility] has implemented the eGFR calculation approach that does not have a coefficient for race that conforms to the NKF-ASN Task Force Recommendations.Performed By: #### [id number] ####[facility] [address] [place] [address] Abbi Choudhary M.D. 36D0 [id number] [Mass/Vol]4.8 mg/dLHigh2.7-4.5[facility] on above:Order Comment: [facility] has implemented the eGFR calculation approach that does not have a coefficient for race that conforms to the NKF-ASN Task Force Recommendations.Performed By: #### 34611 ####[facility] [address] [place] [address] Abbi Choudhary M.D. [id number] [Moles/Vol]4.2 mmol/LNormal3.5-5.1MIndiana University Health [facility] Hospital on above:Order Comment: [facility] has implemented the eGFR calculation approach that does not have a coefficient for race that conforms to the NKF-ASN Task Force Recommendations.Performed By: #### 59881 ####[facility] [address] [place], [place] [address] Abbi Choudhary M.D. [id number] [Moles/Vol]143 mmol/DYmxeny294-512OlwjnyKing's Daughters Hospital and Health Services on above:Order Comment: [facility] has implemented the eGFR calculation approach that does not have a coefficient for race that conforms to the NKF-ASN Task Force Recommendations.Performed By: #### 84425 ####[facility] [address] [place], [place] [address] Abbi Choudhary M.D. [id number] nitrogen [Mass/Vol]27 mg/dLHigh8-25[facility] on above:Order Comment: [facility] has implemented the eGFR calculation approach that does not have a coefficient for race that conforms to the NKF-ASN Task Force Recommendations.Performed By: #### 85476 ####[address] [address] Abbi Choudhary M.D. [id number] nitrogen/Creatinine [Mass ratio]17.0 mg/zfIwubwo26.0-20.0[facility] on above:Order Comment: [facility] has implemented the eGFR calculation approach that does not have a coefficient for race that conforms to the NKF-ASN Task Force Recommendations.Performed By: #### [id number] ####[facility] [address] [place] [address] Abbi Choudhary M.D. [id number] function 2000 panel on 91-47-8025Caadsxz [Mass/Vol]3.4 g/dL3.2 - 5.2 g/dLOhioHealthAnion gap [Moles/Vol]13 mmol/L10 - 20 mmol/LOhioHealthCalcium [Mass/Vol]8.7 mg/dL8.4 - 10.2 mg/dLOhioHealthChloride [Moles/Vol]109 mmol/LHigh98 - 108 mmol/LOhioHealth Creatinine [Mass/Vol]1.59 mg/dLHigh0.40 - 1.10 mg/dLOhioHealthGFR/1.73 sq M.predicted CKD-EPI (S/P/Bld) [Vol rate/Area]40Low- PINFOhioHealthComment on above:Estimated GFR was calculated using the 2020 CKD-EPI creatinine equation. Glucose [Mass/Vol]102 mg/cEVzoe93 - 99 mg/dLOhioHealthHCO3 [Moles/Vol]25 mmol/L 21 - 32 mmol/LOhioHealthInterpretation and review of laboratory resultsAbnormal OhioHealthPhosphate [Mass/Vol]4.8 mg/dLHigh2.7 - 4.5 mg/dLOhioHealthPotassium [Moles/Vol]4.2 mmol/L3.5 - 5.1 mmol/LOhioHealthSodium [Moles/Vol]143 mmol/L135 - 145 mmol/LOhioHealthUrea nitrogen [Mass/Vol]27 mg/dLHigh8 - 25 mg/dLOhioHealth Urea nitrogen/Creatinine [Mass ratio]17.0 mg/mg10.0 - 20.0OhOhioHealth [facility] has implemented the eGFR calculation approach that does not have a coefficient for race that conforms to the NKF-ASN Task Force Recommendations.[facility]-FairhillCBCon 71-08-3033LNQB NRBC0.0 %NormalLogansport Memorial HospitalComment on above:Performed By: #### [id number] ####[facility] [address] [place], [place] [address] Abbi Choudhary M.D. [id number] NRBC ABS COUNT0.00 K/mcLNormal0.00-0.00Log[facility]port Memorial HospitalComment on above:Performed By: #### [id number] ####[facility] [address] [place], [place] [address] Abbi Choudhary M.D. [id number] distribution width (RBC) [Ratio]13.2 %Qbitgs57.6-14.8 [facility] HospitalComment on above:Performed By: #### [id number] ####[facility] [address] [place], [place] [address] Abbi Choudhary M.D. [id number] (Bld) [Volume fraction]29.6 %Low36.0-46.0Log[facility]port Memorial HospitalComment on above:Performed By: #### [id number] ####[facility] [address] [place] [address] Abbi Choudhary M.D. [id number] (Bld) [Mass/Vol]9.7 g/dLLow12.0-16.0 [facility] HospitalComment on above:Performed By: #### [id number] ####[facility] [address] [place] [address] Abbi Choudhary M.D. [id number] (RBC) [Entitic mass]30.8 vyAuycrt59.0-34.0Log[facility]port Memorial HospitalComment on above: Performed By: #### [id number] ####[facility] [address] [place] [address] Abbi Choudhary M.D. [id number] (RBC) [Entitic vol]94.0 wCNesmcl90.0-100.0[facility] HospitalComment on above:Performed By: #### [id number] ####[facility] [address] [place] [address] Abbi Choudhary M.D. [id number] CORPUSCULAR HEMOGLOBIN CONC32.8 g/cNUgcyea17.0-37.0[facility] Memorial HospitalComment on above: Performed By: #### [id number] ####[facility] [address] [place] [address] Abbi Choudhary M.D. [id number] mean volume (Bld) [Entitic vol]9.0 fLLow 9.4-12.4Log[facility]port Memorial HospitalComment on above:Performed By: #### [id number] ####[facility] [address] [place] [address] Abbi Choudhary M.D. [id number] Platelets (Bld) [#/Vol]264 10*3/sDLnjaac973-783IhltyuLogansport Memorial HospitalComment on above:Performed By: #### [id number] ####[facility] [address] [place] [address] Abbi Choudhary M.D. [id number] (Bld) [#/Vol]3.15 10*6/uLLow4.00-5.20 [facility] HospitalComment on above:Performed By: #### [id number] ####[facility] [address] [place], [place] [address] Abbi Choudhary M.D. [id number] (Bld) [#/Vol]7.49 10*3/uLNormal4.50-11.00[facility] Memorial HospitalComment on above: Performed By: #### [id number] ####[facility] [address] [place], [place] [address] Abbi Choudhary M.D. [id number] panel Auto (Bld)on 38-93-4801Uxyumlbrgsm distribution width (RBC) [Entitic vol]13.2 %11.6 - [...] 01-14-2024 Interpretation and review of laboratory resultsNormalOhioHealthOhioHealthCPKon 34-45-3900KCB71 U/NQjmudz12-542XvgvztLogansport Memorial HospitalComment on above:Performed By: #### [id number] ####[facility] [address] [place], [place] [address] Abbi Choudhary M.D. [id number] NO MBon 10-21-1578DQ [Catalytic activity/Vol]57 U/L40 - 170 U/LOhioHealthGlucose (Bld) [Mass/Vol]on 07-69-1380Mhsjnfl [Mass/Vol]194 mg/dL High65 - 99 mg/dLOhioHealthInterpretation and review of laboratory results AbnormalOhioHealthOhioHealthGlucose [Mass/Vol]77 mg/dL65 - 99 mg/dLOhioHealth Interpretation and review of laboratory resultsNormalOhioHealthOhioHealthGlucose [Mass/Vol]239 mg/gBVcbz03 - 99 mg/dLOhioHealthInterpretation and review of laboratory resultsAbnormalOhioHealthOhioHealthGlucose [Mass/Vol]99 mg/dL65 - 99 mg/dLOhioHealthInterpretation and review of laboratory resultsNormalOAdams County Regional Medical Centerealth [facility] GLUCOSE - RALSon 06-02-1078Hhldcqw [Mass/Vol]194 mg/wXHisg08-95 [facility] HospitalComment on above:Performed By: #### [id number] ####[facility] [address] [place], [place] [address] Abbi Choudhary M.D. [id number] [Mass/Vol]77 mg/kZCupcob57-10XhgjqwSt. Vincent Clay HospitalComment on above:Performed By: #### 29949 ####[facility] [address] [place], [place] [address] Abbi Choudhary M.D. [id number] [Mass/Vol]239 mg/aWPnlm72-38AyblusMedical Behavioral Hospital on above:Performed By: #### 62076 ####[facility] [address] [place], [place] [address] Abbi Choudhary M.D. [id number] [Mass/Vol]99 mg/dLNormal 65-99MSt. Vincent Clay HospitalComment on above:Performed By: #### 82656 ####[facility] [address] [place], [place] [address] Abbi Choudhary M.D. [id number] FUNCTION PANELon 77-45-4323Ocxvtzz [Mass/Vol]3.4 g/dLNormal3.2-5.2MSt. Vincent Clay HospitalComcovenant medical center on above:Order Comment: [facility] has implemented the eGFR calculation approach that does not have a coefficient for race that conforms to the NKF-ASN Task Force Recommendations.Performed By: #### [id number] #### LAB [address] [place] [address] Abbi Choudhary M.D. [id number] gap [Moles/Vol]13 mmol/CDumsps65-48PauhloLogansport Memorial Hospital Comment on above:Order Comment: [facility] has implemented the eGFR calculation approach that does not have a coefficient for race that conforms to the NKF-ASN Task Force Recommendations.Performed By: #### 22521 ####[facility] [address] [place], [place] [address] Abbi Choudhary M.D. 36D0 830808Gzsutnx [Mass/Vol]8.5 mg/dLNormal8.4-10.[address] [place] [address] on above:Order Comment: [facility] has implemented the eGFR calculation approach that does not have a coefficient for race that conforms to the NKF-ASN Task Force Recommendations.Performed By: #### [id number] ####[facility] [address] [place], [place] [address] Abbi Choudhary M.D. [id number] [Moles/Vol]107 mmol/NTbotnp46-518HizkskKing's Daughters Hospital and Health Services on above:Order Comment: [facility] has implemented the eGFR calculation approach that does not have a coefficient for race that conforms to the NKF-ASN Task Force Recommendations.Performed By: #### 12620 ####[facility] [address] [place] [address] Abbi Choudhary M.D. [id number] [Mass/Vol]1.59 mg/dLHigh0.40-1.10[facility] on above:Order Comment: [facility] has implemented the eGFR calculation approach that does not have a coefficient for race that conforms to the NKF-ASN Task Force Recommendations.Performed By: #### [id number] ####[facility] [address] [place], [place] [address] Abbi Choudhary M.D. [id number] mL/min/1.73 m2Low>=60 [facility] on above:Order Comment: [facility] has implemented the eGFR calculation approach that does not have a coefficient for race that conforms to the NKF-ASN Task Force Recommendations. Result Comment: Estimated GFR was calculated using the 2020 CKD-EPI creatinine equation.Performed By: #### [id number] ####[facility] [address] [place], [place] [address] Abbi Choudhary M.D. [id number] [Mass/Vol]149 mg/nCPxxs80-88HykztqIndiana University Health Methodist Hospital on above:Order Comment: [facility] has implemented the eGFR calculation approach that does not have a coefficient for race that conforms to the NKF-ASN Task Force Recommendations.Performed By: #### [id number] ####[facility] [address] [place], [place] [address] Abbi Choudhary M.D. [id number] (Bld) [Moles/Vol]25 mmol/NOjwxiw49-74QtwyorLogansport Memorial Hospital Comment on above:Order Comment: [facility] has implemented the eGFR calculation approach that does not have a coefficient for race that conforms to the NKF-ASN Task Force Recommendations.Performed By: #### 97467 ####[facility] [address] [place], [place] [address] Abbi Choudhary M.D. 36D0 [id number] [Mass/Vol]4.7 mg/dLVeterans Affairs Medical Center2.7-4.5[facility] on above:Order Comment: [facility] has implemented the eGFR calculation approach that does not have a coefficient for race that conforms to the NKF-ASN Task Force Recommendations.Performed By: #### [id number] ####[facility] [address] [place], [place] [address] Abbi Choudhary M.D. [id number] [Moles/Vol]4.1 mmol/LNormal3.5-5.1MIndiana University Health Methodist Hospital on above:Order Comment: [facility] has implemented the eGFR calculation approach that does not have a coefficient for race that conforms to the NKF-ASN Task Force Recommendations.Performed By: #### 11175 ####[facility] [address] [place] [address] Abbi Choudhary M.D. [id number] [Moles/Vol]141 mmol/IQwuork953-970AegkzrKing's Daughters Hospital and Health Services on above:Order Comment: [facility] has implemented the eGFR calculation approach that does not have a coefficient for race that conforms to the NKF-ASN Task Force Recommendations.Performed By: #### 71566 ####[facility] [address] [place], [place] [address]Alisia Choudhary M.D. [id number] nitrogen [Mass/Vol]28 mg/dLHigh8-25[facility] on above:Order Comment: [facility] has implemented the eGFR calculation approach that does not have a coefficient for race that conforms to the NKF-ASN Task Force Recommendations.Performed By: #### [id number] ####[facility] [address] [place], [place] [address] Abbi Choudhary M.D. [id number] nitrogen/Creatinine [Mass ratio]17.6 mg/qySxqdhd70.0-20.0[facility] on above:Order Comment: [facility] has implemented the eGFR calculation approach that does not have a coefficient for race that conforms to the NKF-ASN Task Force Recommendations.Performed By: #### 60799 #### LAB [address] [place], [place] [address]Alisia Choudhary M.D. [id number] function 2000 panel on 05-18-5483Ivvauql [Mass/Vol]3.4 g/dL3.2 - 5.2 g/dLOhioHealthAnion gap [Moles/Vol]13 mmol/L10 - 20 mmol/LOhioHealthCalcium [Mass/Vol]8.5 mg/dL8.4 - 10.2 mg/dLOhioHealthChloride [Moles/Vol]107 mmol/L98 - 108 mmol/LOhioHealth Creatinine [Mass/Vol]1.59 mg/dLHigh0.40 - 1.10 mg/dLOhioHealthGFR/1.73 sq M.predicted CKD-EPI (S/P/Bld) [Vol rate/Area]40Low- PINFOhioHealthComment on above:Estimated GFR was calculated using the 2020 CKD-EPI creatinine equation. Glucose [Mass/Vol]149 mg/dCXecu43 - 99 mg/dLOhioHealthHCO3 [Moles/Vol]25 mmol/L 21 - 32 mmol/LOhioHealthInterpretation and review of laboratory resultsAbnormal OhioHealthPhosphate [Mass/Vol]4.7 mg/dLHigh2.7 - 4.5 mg/dLOhioHealthPotassium [Moles/Vol]4.1 mmol/L3.5 - 5.1 mmol/LOhioHealthSodium [Moles/Vol]141 mmol/L135 - 145 mmol/LOhioHealthUrea nitrogen [Mass/Vol]28 mg/dLHigh8 - 25 mg/dLOhioHealth Urea nitrogen/Creatinine [Mass ratio]17.6 mg/mg10.0 - 20.0OhioAultman Alliance Community HospitalioAkron [facility] has implemented the eGFR calculation approach that does not have a coefficient for race that conforms to the NKF-ASN Task Force Recommendations.[facility] CenterioHealthURINALYSISon 54-84-4030VRNVPYVY, URINENone SeenNormalNone SeenLogansport Memorial HospitalComment on above:Order Comment: Microscopic examination is performed on all urinalysis samples and only positive findings are reported. The test for blood on the chemical analytic portion of urinalysis may also be positive due to hemoglobinuria and myoglobinuria and if red blood cells are present they are quantified by microscopic examination. Performed By: #### [id number] ####[facility] [address] [place] [address] Abbi Choudhary M.D. [id number], URINENegativeNormalNegativeLogansport Memorial HospitalComcovenant medical center on above:Order Comment: Microscopic examination is performed on all urinalysis samples and only positive findings are reported. The test for blood on the chemical analytic portion of urinalysis may also be positive due to hemoglobinuria and myoglobinuria and if red blood cells are present they are quantified by microscopic examination.Performed By: #### 43465 ####[facility] [address] [place], [place] [address] Abbi Choudhary M.D. [id number], URINE NegativeNormarNegSt. Vincent Fishers HospitalComment on above:Order Comment: Microscopic examination is performed on all urinalysis samples and only positive findings are reported. The test for blood on the chemical analytic portion of urinalysis may also be positive due to hemoglobinuria and myoglobinuria and if red blood cells are present they are quantified by microscopic examination. Performed By: #### [id number] ####[facility] [address] [place], [place] [address] Abbi Choudhary M.D. [id number] (U)ClearNoalCWabash County Hospital Comment on above:Order Comment: Microscopic examination is performed on all urinalysis samples and only positive findings are reported. The test for blood on the chemical analytic portion of urinalysis may also be positive due to hemoglobinuria and myoglobinuria and if red blood cells are present they are quantified by microscopic examination.Performed By: #### [id number] ####[facility] [address] [place], [place] [address] Abbi Choudhary M.D. [id number] (U)Yellow NormalColorless, [facility] Hospital - EvansvilleComment on above:Order Comment: Microscopic examination is performed on all urinalysis samples and only positive findings are reported. The test for blood on the chemical analytic portion of urinalysis may also be positive due to hemoglobinuria and myoglobinuria and if red blood cells are present they are quantified by microscopic examination. Performed By: #### 63569 ####[facility] [address] [place], [place] [address] Abbi Choudhary M.D. [id number] Ql (U)150 mg/dLAbnormFayette Memorial Hospital AssociationComment on above:Order Comment: Microscopic examination is performed on all urinalysis samples and only positive findings are reported. The test for blood on the chemical analytic portion of urinalysis may also be positive due to hemoglobinuria and myoglobinuria and if red blood cells are present they are quantified by microscopic examination.Performed By: #### 05003 ####[facility] [address] [place] [address] Abbi Choudhary M.D. [id number] Ql (U) NegativeNormFayette Memorial Hospital AssociationComment on above:Order Comment: Microscopic examination is performed on all urinalysis samples and only positive findings are reported. The test for blood on the chemical analytic portion of urinalysis may also be positive due to hemoglobinuria and myoglobinuria and if red blood cells are present they are quantified by microscopic examination. Performed By: #### [id number] ####[facility] [address] [place] [address] Abbi Choudhary M.D. [id number] esterase Test strip Ql (U)NegativeNormal St. [facility] HospitalComment on above:Order Comment: Microscopic examination is performed on all urinalysis samples and only positive findings are reported. The test for blood on the chemical analytic portion of urinalysis may also be positive due to hemoglobinuria and myoglobinuria and if red blood cells are present they are quantified by microscopic examination.Performed By: #### 03221 ####[facility] [address] [place] [address] Abbi Choudhary M.D. [id number], URINERareNormalNone Seen, [facility] Comment on above:Order Comment: Microscopic examination is performed on all urinalysis samples and only positive findings are reported. The test for blood on the chemical analytic portion of urinalysis may also be positive due to hemoglobinuria and myoglobinuria and if red blood cells are present they are quantified by microscopic examination.Performed By: #### 56122 ####[facility] [address] [place], [place] [address] Abbi Choudhary M.D. [id number], URINE NegativeNormalNegSt. Vincent Fishers HospitalComment on above:Order Comment: Microscopic examination is performed on all urinalysis samples and only positive findings are reported. The test for blood on the chemical analytic portion of urinalysis may also be positive due to hemoglobinuria and myoglobinuria and if red blood cells are present they are quantified by microscopic examination. Performed By: #### [id number] ####[facility] [address] [place] [address] Abbi Choudhary M.D. [id number] (U)5.0 [pH]Normal5.0-7.0[facility] Comment on above:Order Comment: Microscopic examination is performed on all urinalysis samples and only positive findings are reported. The test for blood on the chemical analytic portion of urinalysis may also be positive due to hemoglobinuria and myoglobinuria and if red blood cells are present they are quantified by microscopic examination.Performed By: #### [id number] ####[facility] [address] [place] [address] Abbi Choudhary M.D. [id number] (U) [Mass/Vol]100 mg/dLAbnormalNegativeLogansport Memorial HospitalComment on above:Order Comment: Microscopic examination is performed on all urinalysis samples and only positive findings are reported. The test for blood on the chemical analytic portion of urinalysis may also be positive due to hemoglobinuria and myoglobinuria and if red blood cells are present they are quantified by microscopic examination.Performed By: #### [id number] ####[facility] [address] [place] [address] Abbi Choudhary M.D. [id number] LM.HPF (Urine sed) [#/Area]1 /[HPF]Normal0-3MSt. Vincent Clay HospitalComment on above:Order Comment: Microscopic examination is performed on all urinalysis samples and only positive findings are reported. The test for blood on the chemical analytic portion of urinalysis may also be positive due to hemoglobinuria and myoglobinuria and if red blood cells are present they are quantified by microscopic examination. Performed By: #### [id number] ####[facility] [address] [place], [place] [address] Abbi Choudhary M.D. [id number] gravity (U) [Rel density]1.017Normal 1.005-1.025[facility] on above:Order Comment: Microscopic examination is performed on all urinalysis samples and only positive findings are reported. The test for blood on the chemical analytic portion of urinalysis may also be positive due to hemoglobinuria and myoglobinuria and if red blood cells are present they are quantified by microscopic examination.Performed By: #### [id number] ####[facility] [address] [place] [address] Abbi Choudhary M.D. [id number] EPITHELIAL<Normal0-4[facility] on above:Order Comment: Microscopic examination is performed on all urinalysis samples and only positive findings are reported. The test for blood on the chemical analytic portion of urinalysis may also be positive due to hemoglobinuria and myoglobinuria and if red blood cells are present they are quantified by microscopic examination.Performed By: #### 35555 #### LAB [address] [place] [address] Abbi Choudhary M.D. [id number], URINE<2.0Normal<2.0[facility] on above:Order Comment: Microscopic examination is performed on all urinalysis samples and only positive findings are reported. The test for blood on the chemical analytic portion of urinalysis may also be positive due to hemoglobinuria and myoglobinuria and if red blood cells are present they are quantified by microscopic examination. Performed By: #### 71315 ####[facility] [address] [place], [place] [address] Abbi Choudhary M.D. [id number] LM.HPF (Urine sed) [#/Area]1 /[HPF]Normal0-5[facility] on above:Order Comment: Microscopic examination is performed on all urinalysis samples and only positive findings are reported. The test for blood on the chemical analytic portion of urinalysis may also be pos itive due to hemoglobinuria and myoglobinuria and if red blood cells are present they are quantified by microscopic examination.Performed By: #### 97155 #### LAB [address] [place], [place] [address] Abbi Choudhary M.D. [id number] UrinalysisOrdered By: Kendra Bae on 33-26-4595Ptjsfcvb Auto Ql (U)None Seen None Seen /hpfOhioHealthBilirubin [...] present they are quantified by microscopic examination.OhioHealthOhioHealthCBCon 91-75-2335DMIC NRBC0.0 %[facility] HospitalComment on above:Performed By: #### 10378 ####[facility] [address] [place] [address] Abbi Choudhary M.D. 36D0 190940CJZK NRBC ABS COUNT0.00 K/mcLNormal0.00-0.00[facility] HospitalComment on above:Performed By: #### 86391 ####[facility] [address] [place] [address] Abbi Choudhary M.D. [id number] distribution width (RBC) [Ratio] 13.1 %Umiuip70.6-14.8[facility] HospitalComment on above:Performed By: #### 39304 ####[facility] [address] [place] [address] Abbi Choudhary M.D. [id number] (Bld) [Volume fraction]27.5 %Low36.0-46.0[facility] HospitalComment on above:Performed By: #### 60095 ####[facility] [address] [place] [address] Abbi Choudhary M.D. [id number] (Bld) [Mass/Vol]9.3 g/dLLow12.0-16.0[facility] HospitalComment on above:Performed By: #### 10540 ####[facility] [address] [place] [address] Abbi Choudhary M.D. [id number] (RBC) [Entitic mass]31.1 fgNrarpk18.0-34.0[facility] Comment on above:Performed By: #### 09489 ####[facility] [address] [place] [address] Abbi Choudhary M.D. [id number] (RBC) [Entitic vol]92.0 fLNormal 80.0-100.0[facility] HospitalComment on above:Performed By: #### 79318 ####[facility] [address] [place] [address] Abbi Choudhary M.D. 36D0 547223SUFL CORPUSCULAR HEMOGLOBIN CONC33.8 g/iVTbqaxh33.0-37.0[facility] HospitalComment on above:Performed By: #### 64019 ####[facility] [address] [place] [address] Abbi Choudhary M.D. [id number] mean volume (Bld) [Entitic vol]8.6 fLLow9.4-12.4[facility] HospitalComment on above:Performed By: #### 22921 ####[facility] [address] [place], [place] [address] Abbi Choudhary M.D. [id number] (Bld) [#/Vol]238 10*3/cMFysyhi712-287WoihgsLogansport Memorial HospitalComment on above:Performed By: #### 43119 ####[facility] [address] [place] [address] Abbi Choudhary M.D. [id number] (Bld) [#/Vol]2.99 10*6/uL Low4.00-5.20[facility] HospitalComment on above:Performed By: #### 64444 ####[facility] [address] [place] [address] Abbi Choudhary M.D. 36D0 [id number] (Bld) [#/Vol]7.09 10*3/uLNormal4.50-11.00[facility] Comment on above:Performed By: #### 92048 ####[facility] [address] [place] [address] Abbi Choudhary M.D. [id number] panel Auto (Bld)on 01-13-2024 Erythrocyte distribution width (RBC) [Entitic vol]13.1 %11.6 - 14.8 %[facility] Hematocrit (Bld) [Volume fraction]27.5 %Low36.0 - 46.0 [...] 10*3/uLOhioHealthRBC (Bld) [#/Vol]2.99 10*6/uLLowOhioHealthWBC (Bld) [#/Vol]7.09 10*3/uLOhioHealthOhioHealthCONSULTon 19-26-7933PLMJVZXLmfzgzVmfsid General HospitalCT FOOT LEFT WITHOUT CONTRASTon 41-24-1993FC FOOT LEFT WITHOUT CONTRASTIndiana University Health Ball Memorial HospitalComment on above:Order Comment: Injury/Trauma or [...] The hardware is incompletely included on the lyvmw-ve-mkuv for this study. Thereis cystic change and [...] The hardware is incompletely included on the smycw-ab-wwmp for this study. Thereis cystic change and [...] as described above. TROY/xochitl Workstation ID: [id number] [facility] HospitalRadiology Study observation (narrative)[facility] Foot - left WO contrastOrdered By: Preston Rajan on 62-45-8123AvbqIdcwws Work Phone: ecg 12 Leadon 55-13-8603Hvwrkt Dptx80VHJYckoImazvaO Rkxq43rrvqktrOnpiZgwjzyQ-G Pubvkbqp576 msOhioHealthQ-T Dhjpuymo370 msOhioHealth QRS Elfgdakb02 msOhioHealthQTC Calculation (Carline)439 msOhioHealthR Axis18 degreesOhioHealthT Ljrz83cizsffyEdzkUrueyjJthrkmgjtmb Xguw06BWTPjyoFjkimlDisfxo sinus rhythm Possible Left atrial enlargement Confirmed by Monique Pillai MD ([id number]) on 01/13/2024 8:52:41 AMMUSEGaioAkron Children'S Hospital Glucose (Bld) [Mass/Vol]on 80-67-0860Ztsomay [Mass/Vol]177 mg/zPEtzy13 - 99 mg/dLOhioHealthInterpretation and review of laboratory resultsAbnoThe MetroHealth SystemGlucose [Mass/Vol]119 mg/yNWriq19 - 99 mg/dLOhioHealthInterpretation and review of laboratory resultsAbnoSelect Medical Specialty Hospital - CantonGlucose [Mass/Vol] 116 mg/uXHvvn36 - 99 mg/dLOhioHealthInterpretation and review of laboratory resultsAbnormSelect Medical Specialty Hospital - ColumbusGlucose [Mass/Vol]103 mg/tQVcry30 - 99 mg/dL OhioHealthInterpretation and review of laboratory resultsAbnormGalion Community HospitalGlucose [Mass/Vol]122 mg/cGCpgh89 - 99 mg/dLOhioHealthInterpretation and review of laboratory resultsAbnoPremier Health Miami [facility] GLUCOSE - Micky 93-59-2138Etsszec [Mass/Vol]177 mg/zZYbqw00-47Ymgbeg [facility] HospitalComment on above:Performed By: #### [id number] ####[facility] [address] [address] Abbi Choudhary M.D. [id number] [Mass/Vol]119 mg/mPIrfx35-49Ncisec [facility] HospitalComment on above:Performed By: #### [id number] ####[facility] [address] [address] Abbi Choudhary M.D. [id number] [Mass/Vol]116 mg/eIPcfp98-64Vlbuif [facility] HospitalComment on above:Performed By: #### [id number] ####[facility] [address] [place], [place] [address] Abbi Choudhary M.D. [id number] [Mass/Vol]103 mg/vLExts07-10WakjyzSt. Vincent Clay Hospital Comment on above:Performed By: #### [id number] ####[facility] [address] [place], [place] [address] Abbi Choudhary M.D. [id number] [Mass/Vol]122 mg/sZVrxj10-91 [facility] HospitalComment on above:Performed By: #### [id number] ####[facility] [address] [place], [place] [address] Abbi Choudhary M.D. [id number] FUNCTION PANELon 59-56-7885Uulmyto [Mass/Vol]3.1 g/dLLow3.2-5.2MSt. Vincent Clay HospitalComment on above:Order Comment: [facility] has implemented the eGFR calculation approach that does not have a coefficient for race that conforms to the NKF-ASN Task Force Recommendations.Performed By: #### [id number] ####[facility] [address] [place], [place] [address] Abbi Choudhary M.D. [id number] gap [Moles/Vol]16 mmol/OOimgrh79-96CsbgblLogansport Memorial Hospital Comment on above:Order Comment: [facility] has implemented the eGFR calculation approach that does not have a coefficient for race that conforms to the NKF-ASN Task Force Recommendations.Performed By: #### [id number] ####[facility] [address] [place], [place] [address] Abbi Choudhary M.D. 36D0 [id number] [Mass/Vol]8.4 mg/dLNormal8.4-10.2MSt. Vincent Clay HospitalComcovenant medical center on above:Order Comment: [facility] has implemented the eGFR calculation approach that does not have a coefficient for race that conforms to the NKF-ASN Task Force Recommendations.Performed By: #### [id number] ####[facility] [address] [place], [place] [address] Abbi Choudhary M.D. [id number] [Moles/Vol]105 mmol/YGhqkqd09-742SrnqflKing's Daughters Hospital and Health Services on above:Order Comment: [facility] has implemented the eGFR calculation approach that does not have a coefficient for race that conforms to the NKF-ASN Task Force Recommendations.Performed By: #### [id number] ####[facility] [address] [place], [place] [address] Abbi Choudhary M.D. [id number] [Mass/Vol]1.32 mg/dLHigh0.40-1.10[facility] on above:Order Comment: [facility] has implemented the eGFR calculation approach that does not have a coefficient for race that conforms to the NKF-ASN Task Force Recommendations.Performed By: #### [id number] ####[facility] [address] [address] Abbi Choudhary M.D. [id number] mL/min/1.73 m2Low>=60 [facility] on above:Order Comment: [facility] has implemented the eGFR calculation approach that does not have a coefficient for race that conforms to the NKF-ASN Task Force Recommendations. Result Comment: Estimated GFR was calculated using the 2020 CKD-EPI creatinine equation.Performed By: #### [id number] ####[facility] [address] [address] Abbi Choudhary M.D. [id number] [Mass/Vol]157 mg/mUUklo04-02NhljlpIndiana University Health Methodist Hospital on above:Order Comment: [facility] has implemented the eGFR calculation approach that does not have a coefficient for race that conforms to the NKF-ASN Task Force Recommendations.Performed By: #### [id number] ####[facility] [address] [place], [place] [address] Abbi Choudhary M.D. [id number] (Bld) [Moles/Vol]21 mmol/SHmplxw27-95GcpoguLogansport Memorial Hospital Comment on above:Order Comment: [facility] has implemented the eGFR calculation approach that does not have a coefficient for race that conforms to the NKF-ASN Task Force Recommendations.Performed By: #### [id number] ####[facility] [address] [address] Abbi Choudhary M.D. 36D0 015196Fjpstqgtz [Mass/Vol]3.7 mg/dLNormal2.7-4.5[facility] on above:Order Comment: [facility] has implemented the eGFR calculation approach that does not have a coefficient for race that conforms to the NKF-ASN Task Force Recommendations.Performed By: #### [id number] ####[facility] [address] [address] Abbi Choudhary M.D. [id number] [Moles/Vol]4.1 mmol/LNormal3.5-5.1MIndiana University Health Methodist Hospital on above:Order Comment: [facility] has implemented the eGFR calculation approach that does not have a coefficient for race that conforms to the NKF-ASN Task Force Recommendations.Result Comment: Slightly HemolyzedPerformed By: #### [id number] #### LAB [address] [place] [address] Abbi Choudhary M.D. [id number] [Moles/Vol]138 mmol/HFnbydz952-903NzemosLogansport Memorial Hospital Comment on above:Order Comment: [facility] has implemented the eGFR calculation approach that does not have a coefficient for race that conforms to the NKF-ASN Task Force Recommendations.Performed By: #### [id number] ####[facility] [address] [address] Abbi Choudhary M.D. 36D0 559407Ierk nitrogen [Mass/Vol]27 mg/dLHigh8-25[facility] Memorial HospitalComcovenant medical center on above:Order Comment: [facility] has implemented the eGFR calculation approach that does not have a coefficient for race that conforms to the NKF-ASN Task Force Recommendations.Performed By: #### [id number] #### LAB [address] [address] Abbi Choudhary M.D. [id number] nitrogen/Creatinine [Mass ratio]20.5 mg/kjCiqj94.0-20.0[facility] Comment on above:Order Comment: [facility] has implemented the eGFR calculation approach that does not have a coefficient for race that conforms to the NKF-ASN Task Force Recommendations.Performed By: #### [id number] ####[facility] [address] [address] Abbi Choudhary M.D. 36D0 [id number] function 2000 panelOrdered By: Alberta Vo on 01-13-2024 Albumin [Mass/Vol]3.1 g/dLLow3.2 - 5.2 g/dLOhioHealthAnion gap [Moles/Vol]16 mmol/L10 - 20 mmol/LOhioHealthCalcium [Mass/Vol]8.4 mg/dL8.4 - 10.2 mg/dL OhioHealthChloride [Moles/Vol]105 mmol/L98 - 108 mmol/LOhioHealthCreatinine [Mass/Vol]1.32 mg/dLHigh0.40 - 1.10 mg/dLOhioHealthGFR/1.73 sq M.predicted CKD- EPI (S/P/Bld) [Vol rate/Area]51Low- PINFOhioHealthComment on above:Estimated GFR was calculated using the 2020 CKD-EPI creatinine equation.Glucose [Mass/Vol]157 mg/fAIurs05 - 99 mg/dLOhioHealthHCO3 [Moles/Vol]21 mmol/L21 - 32 mmol/L MississippiHealthInterpretation and review of laboratory resultsAbnormalOhioHealth Phosphate [Mass/Vol]3.7 [...] NKF-ASN Task Force Recommendations.OhioHealthOhioHealthBASIC METABOLIC PANEL on 94-56-6039Uivpe gap [Moles/Vol]14 mmol/JRdixyp36-64FdebxcLogansport Memorial Hospital Comment on above:Order Comment: [facility] has implemented the eGFR calculation approach that does not have a coefficient for race that conforms to the NKF-ASN Task Force Recommendations.Performed By: #### [id number] ####[facility] [address] [place], [place] [address] Abbi Choudhary M.D. 36D0 [id number] [Mass/Vol]9.0 mg/dLNormal8.4-10.2MIndiana University Health Methodist Hospital on above:Order Comment: [facility] has implemented the eGFR calculation approach that does not have a coefficient for race that conforms to the NKF-ASN Task Force Recommendations.Performed By: #### [id number] ####[facility] [address] [address] Abbi Choudhary M.D. [id number] [Moles/Vol]104 mmol/PFjibwj11-311ZkcnkxLogansport Memorial HospitalComment on above:Order Comment: [facility] has implemented the eGFR calculation approach that does not have a coefficient for race that conforms to the NKF-ASN Task Force Recommendations.Performed By: #### [id number] ####[facility] [address] [address] Abbi Choudhary M.D. [id number] [Mass/Vol]1.06 mg/dLNormal0.40-1.10[facility] on above:Order Comment: [facility] has implemented the eGFR calculation approach that does not have a coefficient for race that conforms to the NKF-ASN Task Force Recommendations.Performed By: #### [id number] ####[facility] [address] [address] Abbi Choudhary M.D. [id number] mL/min/1.73 p1Rkhdkk >=60[facility] on above:Order Comment: [facility] has implemented the eGFR calculation approach that does not have a coefficient for race that conforms to the NKF-ASN Task Force Recommendations. Result Comment: Estimated GFR was calculated using the 2020 CKD-EPI creatinine equation.Performed By: #### [id number] ####[facility] [address] [address] Abbi Choudhary M.D. [id number] [Mass/Vol]109 mg/lRJgmm26-90WdaqqvSt. Vincent Clay HospitalComment on above:Order Comment: [facility] has implemented the eGFR calculation approach that does not have a coefficient for race that conforms to the NKF-ASN Task Force Recommendations.Performed By: #### [id number] ####[facility] [address] [address] Abbi Choudhary M.D. [id number] (Bld) [Moles/Vol]26 mmol/LSpazha49-22CeaxtvLogansport Memorial Hospital Comment on above:Order Comment: [facility] has implemented the eGFR calculation approach that does not have a coefficient for race that conforms to the NKF-ASN Task Force Recommendations.Performed By: #### [id number] ####[facility] [address] [address] Abbi Choudhary M.D. 36D0 052480Vmhmcpbsm [Moles/Vol]4.1 mmol/LNormal3.5-5.1MIndiana University Health Methodist Hospital on above:Order Comment: [facility] has implemented the eGFR calculation approach that does not have a coefficient for race that conforms to the NKF-ASN Task Force Recommendations.Performed By: #### [id number] ####[facility] [address] [address] Abbi Choudhary M.D. [id number] [Moles/Vol]140 mmol/JSgncpk301-148CwkcfaLogansport Memorial HospitalComcovenant medical center on above:Order Comment: [facility] has implemented the eGFR calculation approach that does not have a coefficient for race that conforms to the NKF-ASN Task Force Recommendations.Performed By: #### [id number] ####[facility] [address] [address] Abbi Choudhary M.D. [id number] nitrogen [Mass/Vol] 24 mg/dLNormal8-25[facility] on above:Order Comment: [facility] has implemented the eGFR calculation approach that does not have a coefficient for race that conforms to the NKF-ASN Task Force Recommendations.Performed By: #### [id number] ####[facility] [address] [place], [place] [address] Abbi Choudhary M.D. [id number] nitrogen/Creatinine [Mass ratio]22.6 mg/ibTnvf84.0-20.0[facility] HospitalComment on above:Order Comment: [facility] has implemented the eGFR calculation approach that does not have a coefficient for race that conforms to the NKF-ASN Task Force Recommendations.Performed By: #### [id number] ####[facility] [address] [place], [place] [address] Abbi Choudhary M.D. [id number] metabolic 2000 panelon 17-02-7229Sxdcd gap [Moles/Vol]14 mmol/L10 - 20 mmol/LOhioHealthCalcium [Mass/Vol]9.0 mg/dL8.4 - 10.2 mg/dLOhioHealthChloride [Moles/Vol]104 mmol/L98 - 108 mmol/LOhioHealthCreatinine [Mass/Vol]1.06 mg/dL0.40 - 1.10 mg/dLOhioHealth GFR/1.73 sq M.predicted CKD-EPI (S/P/Bld) [Vol rate/Area]66- PINFOhioHealth Comment on above:Estimated GFR was calculated using the 2020 CKD-EPI creatinine equation.Glucose [Mass/Vol]109 mg/gFDiun81 - 99 mg/dLOhioHealthHCO3 [Moles/Vol] 26 mmol/L21 - 32 mmol/LOhioHealthInterpretation and review of laboratory results AbnormalOhioHealthPotassium [Moles/Vol]4.1 mmol/L3.5 - 5.1 mmol/LOhioHealth Sodium [Moles/Vol]140 mmol/L135 - 145 mmol/LOhioHealthUrea nitrogen [Mass/Vol]24 mg/dL8 - 25 mg/dLOhioHealthUrea nitrogen/Creatinine [Mass ratio]22.6 mg/mgHigh 10.0 - 20.0OhioPrem[facility] has implemented the eGFR calculation approach that does not have a coefficient for race that conforms to the NKF-ASN Task Force Recommendations.[facility] CenterioAkron Children'S HospitalCBC Auto Differential on 63-05-0352Dpcvplpiy (Bld) [#/Vol]0.06 10*3/uLOhioHealthBasophils/100 WBC (Bld)0.6 %OhioHealthEosinophils (Bld) [#/Vol]0.63 10*3/uLHighOhioHealth Eosinophils/100 WBC (Bld)6.5 %[facility] HospitalErythrocyte distribution width (RBC) [Entitic vol]12.9 %11.6 - [...] resultsAbnormalOhioHealthLymphocytes (Bld) [#/Vol]1.77 10*3/uL OhioHealthLymphocytes/100 WBC (Bld)18.3 %[facility] HospitalMCH (RBC) [Entitic mass]31.0 pg26.0 - 34.0 pgOhioHealthMCHC (RBC) [Mass/Vol]33.8 g/dL31.0 - 37.0 g/dL [facility] HospitalMCV (RBC) [Entitic vol]91.5 fL80.0 - 100.0 fLOhioHealthMonocytes (Bld) [#/Vol]0.47 10*3/uLOhioHealthMonocytes/100 WBC (Bld)4.9 %OhioHealthNeutrophils (Bld) [#/Vol]6.70 10*3/uLOhioHealthNeutrophils/100 WBC (Bld)69.2 %[facility] Nucleated RBC (Bld) [#/Vol]0.00 10*3/uLOhioHealthNucleated RBC/100 WBC (Bld) [Ratio]0.0 %OhioHealthPlatelet mean volume (Bld) [Entitic vol]9.1 fLLow9.4 - 12.4 fLOhioHealthPlatelets (Bld) [#/Vol]291 10*3/uLOhioHealthRBC (Bld) [#/Vol] 3.78 10*6/uLLowOhioHealthWBC (Bld) [#/Vol]9.68 10*3/uLOhioHealthOhioHealthCBC WITH AUTO DIFFERENTIALon 55-55-7849LCWN NRBC0.0 %[facility] Comment on above:Performed By: #### [id number] ####[facility] [address] [place], [place] [address] Abbi Choudhary M.D. [id number] NRBC ABS COUNT0.00 K/mcLNormal 0.00-0.00[facility] HospitalComment on above:Performed By: #### [id number] ####[facility] [address] [address] Abbi Choudhary M.D. 36 [id number] ABSOLUTE COUNT0.06 K/mcLNormal0.00-0.30[facility] Comment on above:Performed By: #### [id number] ####[facility] [address] [place], [place] [address] Abbi Choudhary M.D. [id number]/100 WBC (Bld)0.6 %[facility] Of KokomoComment on above:Performed By: #### [id number] ####[facility] [address] [place], [place] [address] Abbi Choudhary M.D. [id number] (Bld) [#/Vol]0.63 10*3/uLHigh0.00-0.50[facility] HospitalComment on above: Performed By: #### [id number] ####[facility] [address] [place], [place] [address] Abbi Choudhary M.D. [id number]/100 WBC (Bld)6.5 %[facility] HospitalComment on above:Performed By: #### [id number] ####[facility] [address] [place] [address] Abbi Choudhary M.D. [id number] distribution width (RBC) [Ratio]12.9 %Vbwumh89.6-14.8[facility] Comment on above:Performed By: #### [id number] ####[facility] [address] [address] Abbi Choudhary M.D. [id number] (Bld) [Volume fraction] 34.6 %Low36.0-46.0[facility] HospitalComment on above:Performed By: #### [id number] ####[facility] [address] [address] Abbi Choudhary M.D. [id number] (Bld) [Mass/Vol]11.7 g/dLLow12.0-16.0[facility] HospitalComment on above:Performed By: #### [id number] ####[facility] [address] [address] Abbi Choudhary M.D. [id number] ABSOLUTE0.05 K/mcL Normal0.00-0.30[facility] HospitalComment on above:Performed By: #### [id number] ####[facility] [address] [address] Abbi Choudhary M.D. [id number] PERCENT0.50 %NormalLogansport Memorial HospitalComment on above:Result Comment: The IG parameter is the percentage of metamyelocytes, myelocytes and promyelocytes.An immature granulocyte count (IG) of 1% or more suggests the possibility of infection, an IG countof 3% is very likely related to an infection.Performed By: #### [id number] ####[facility] [address] [address] Abbi Choudhary M.D. [id number] (Bld) [#/Vol]1.77 10*3/uLNormal0.90-4.00[facility] HospitalComment on above:Performed By: #### [id number] ####[facility] [address] [place], [place] [address] Abbi Choudhary M.D. [id number]/100 WBC (Bld)18.3 %NormalJohnson Memorial Hospital HospitalComment on above:Performed By: #### [id number] ####[facility] [address] [address] Abbi Choudhary M.D. [id number] (RBC) [Entitic mass]31.0 pgNormal 26.0-34.0[facility] HospitalComment on above:Performed By: #### [id number] ####[facility] [address] [address] Abbi Choudhary M.D. 36 [id number] (RBC) [Entitic vol]91.5 mADrfaql21.0-100.0[facility] Comment on above:Performed By: #### [id number] ####[facility] [address] [address] Abbi Choudhary M.D. [id number] CORPUSCULAR HEMOGLOBIN CONC33.8 g/aUGsvaze88.0-37.0[facility] HospitalComment on above:Performed By: #### [id number] ####[facility] [address] [address] Abbi Choudhary M.D. [id number] (Bld) [#/Vol]0.47 10*3/uLNormal0.30-0.90[facility] HospitalComment on above:Performed By: #### [id number] ####[facility] [address] [address] Abbi Choudhary M.D. [id number]/100 WBC (Bld) 4.9 %NormalJohnson Memorial Hospital HospitalComment on above:Performed By: #### [id number] ####[facility] [address] [address] Abbi Choudhary M.D. 36 [id number] ABSOLUTE COUNT6.70 K/mcLNormal1.70-7.00[facility] HospitalComment on above:Performed By: #### [id number] ####[facility] [address] [place] [address] Abbi Choudhary M.D. [id number]/100 WBC (Bld) 69.2 %NormalLogansport Memorial HospitalComment on above:Performed By: #### [id number] ####[facility] [address] [address]Alisia Choudhary M.D. 36 [id number] mean volume (Bld) [Entitic vol]9.1 fLLow9.4-12.4[facility] HospitalComment on above:Performed By: #### [id number] ####[facility] [address] [address] Abbi Choudhary M.D. [id number] (Bld) [#/Vol] 291 10*3/vIEkgcpg706-793VcntlfLogansport Memorial HospitalComment on above:Performed By: #### [id number] ####[facility] [address] [address] Abbi Choudhary M.D. [id number] (Bld) [#/Vol]3.78 10*6/uLLow4.00-5.20[facility] Comment on above:Performed By: #### [id number] ####[facility] [address] [address] Abbi Choudhary M.D. [id number] (Bld) [#/Vol]9.68 10*3/uLNormal 4.50-11.00[facility] HospitalComment on above:Performed By: #### [id number] ####[facility] [address] [address] Abbi Choudhary M.D. 36 [id number] [Mass/Vol]on 09-68-9842Jsqsocbxddxleb and review of laboratory resultsNormalOhioHealthOhioHealthCRP, INFLAMMATIONon 27-99-3136IEZ [Mass/Vol]8.2 mg/LNormal0.0-10.0[facility] HospitalComment on above:Performed By: #### [id number] ####[facility] [address] [place], [place] [address] Abbi Choudhary M.D. [id number], Inflammationon 36-57-5930OKP [Mass/Vol]8.2 mg/L0.0 - 10.0 mg/L [facility] HospitalED Prov Noteon 06-24-5397YZ Prov NoteNormalLogansport Memorial HospitalESR Westergren method (Bld) [Velocity]on 05-39-4583PVL (Bld) [Velocity]40 mm/hHigh OhioHealthInterpretation and review of laboratory resultsAbnormalOUniversity Hospitals Lake West Medical Centerth [facility] HospitalGlucose (Bld) [Mass/Vol]on 23-61-5667Svrwkjb [Mass/Vol]92 mg/dL65 - 99 mg/dLOhioHealthInterpretation and review of laboratory resultsNoThe MetroHealth SystemGold Topon 83-24-7117Joqhp TubeHold for add-ons.OhioHealthComment on above:Auto resulted.[facility] HospitalH AND Paulino 01-12-2024H AND PNormalLogansport Memorial HospitalHEMOGLOBIN A1Con 30-13-5817Yhmzmkh [Mass/Vol]220 mg/iLWwuz99-605GpziviLogansport Memorial HospitalComment on above:Performed By: #### [id number] ####[facility] [address] [place], [place] [address] Abbi Choudhary M.D. [id number] (Bld) [Mass fraction]9.3 %High4.2-5.6MSt. Vincent Clay HospitalComment on above:Performed By: #### [id number] ####[facility] [address] [place], [place] [address] Abbi Choudhary M.D. [id number] (Bld) [Mass fraction]on 98-30-8066Wjoalzl glucose Estimated from glycated hemoglobin (Bld) [Mass/Vol]220 mg/cLVqvm29 - 114 mg/dLOhioHealth Interpretation and review of laboratory resultsAbnormalOhiMount St. Mary HospitalOhioHealth Hemoglobin A1con 06-03-5257XzZ0n (Bld) [Mass fraction]9.3 %High4.2 - 5.6 % [facility] HospitalNo Panel Informationon 65-68-7107Myedv TubeHold for add-ons.[facility] Comment on above:Auto resulted.[facility] GLUCOSE - RALSon 92-70-8176Czprsyo [Mass/Vol]92 mg/hYIzdieq30-14SpqnraSt. Vincent Clay HospitalComment on above:Performed By: #### [id number] ####[facility] [address] [place], [place] [address] Abbi Choudhary M.D. [id number] RATEon 94-54-5824JCUAXNJQFITEW RATE, VQTGVXCSONT88 mm/hrHigh0-[facility] HospitalComment on above:Performed By: #### [id number] ####[facility] [address] [place], [place] [address] Abbi Choudhary M.D. 36D0 682596JU FOOT LEFT 3+ VIEWS (STANDARD)on 01-49-9895EH FOOT LEFT 3+ VIEWS (STANDARD)[facility] HospitalComment on above:Order Comment: Injury/Trauma or [...] which is more sensitive. Workstation ID: [id number] [facility] HospitalRadiology Study observation (narrative)[facility] HospitalXR Foot - left 3 ViewsOrdered By: Vic Mac on 81-25-4182DwnwFsecnj Work Phone: ed Prov Noteon 66-23-1504YY [facility] NoteNormalLogansport Memorial HospitalXR FOOT LEFT 3+ VIEWS (STANDARD)on 33-52-7035FS FOOT LEFT 3+ VIEWS (STANDARD)[facility] HospitalComment on above:Order Comment: Injury/Trauma or Illness?:Illness/OtherHow long have you had these symptoms (acute/chronic)?:AcuteReason for exam?:1st toe painHistory of cancer?:uSurgeries, chemotherapy, or radiation?:pacemakerType of Exam?:InitialAdditional signs and symptoms?:1st toe painBASIC METABOLIC PANELon 03-94-8025Uwpjq gap [Moles/Vol]15 mmol/GApehcm86-23VlbctkLogansport Memorial Hospital Comment on above:Order Comment: [facility] has implemented the eGFR calculation approach that does not have a coefficient for race that conforms to the NKF-ASN Task Force Recommendations.Performed By: #### [id number] ####[facility] [address] [address] Abbi Choudhary M.D. [id number] [Mass/Vol]9.0 mg/dLNormal8.4-10.2MIndiana University Health Methodist Hospital on above:Order Comment: [facility] has implemented the eGFR calculation approach that does not have a coefficient for race that conforms to the NKF-ASN Task Force Recommendations.Performed By: #### [id number] ####[facility] [address] [address] Abbi Choudhary M.D. [id number] [Moles/Vol]100 mmol/OHvskmn11-173GphicnKing's Daughters Hospital and Health Services on above:Order Comment: [facility] has implemented the eGFR calculation approach that does not have a coefficient for race that conforms to the NKF-ASN Task Force Recommendations.Performed By: #### [id number] ####[facility] [address] [address] Abbi Choudhary M.D. [id number] [Mass/Vol]1.27 mg/dLHigh0.40-1.10[facility] on above:Order Comment: [facility] has implemented the eGFR calculation approach that does not have a coefficient for race that conforms to the NKF-ASN Task Force Recommendations.Performed By: #### [id number] ####[facility] [address] [address] Abbi Choudhary M.D. [id number] mL/min/1.73 m2Low>=60 [facility] on above:Order Comment: [facility] has implemented the eGFR calculation approach that does not have a coefficient for race that conforms to the NKF-ASN Task Force Recommendations. Result Comment: Estimated GFR was calculated using the 2020 CKD-EPI creatinine equation.Performed By: #### [id number] ####[facility] [address] [address] Abbi Choudhary M.D. [id number] [Mass/Vol]487 mg/dLOff scale high 65-99MIndiana University Health Methodist Hospital on above:Order Comment: [facility] has implemented the eGFR calculation approach that does not have a coefficient for race that conforms to the NKF-ASN Task Force Recommendations.Performed By: #### [id number] ####[facility] [address] [address] Abbi Choudhary M.D. [id number] (Bld) [Moles/Vol]23 mmol/L Bkpvkg50-53TxhjfwKing's Daughters Hospital and Health Services on above:Order Comment: [facility] has implemented the eGFR calculation approach that does not have a coefficient for race that conforms to the NKF-ASN Task Force Recommendations.Performed By: #### [id number] ####[facility] [address] [address] Abbi Choudhary M.D. [id number] [Moles/Vol]5.0 mmol/L Normal3.5-5.1MIndiana [facility] Health [facility] on above:Order Comment: [facility] has implemented the eGFR calculation approach that does not have a coefficient for race that conforms to the NKF-ASN Task Force Recommendations.Performed By: #### [id number] ####[facility] [address] [address] Abbi Choudhary M.D. [id number] [Moles/Vol]133 mmol/LLow 135-145[facility] on above:Order Comment: [facility] has implemented the eGFR calculation approach that does not have a coefficient for race that conforms to the NKF-ASN Task Force Recommendations.Performed By: #### [id number] ####[facility] [address] [place], [place] [address] Abbi Choudhary M.D. [id number] nitrogen [Mass/Vol]30 mg/dLHigh 8-25[facility] on above:Order Comment: [facility] has implemented the eGFR calculation approach that does not have a coefficient for race that conforms to the NKF-ASN Task Force Recommendations. Performed By: #### [id number] ####[facility] [address] [address] Abbi Choudhary M.D. [id number] nitrogen/Creatinine [Mass ratio]23.6 mg/mgHigh 10.0-20.0[facility] HospitalComment on above:Order Comment: [facility] has implemented the eGFR calculation approach that does not have a coefficient for race that conforms to the NKF-ASN Task Force Recommendations.Performed By: #### [id number] ####[facility] [address] [address] Abbi Choudhary M.D. [id number] WITH AUTO DIFFERENTIALon 55-74-2375ZBBH NRBC0.0 %[facility] HospitalComment on above:Performed By: #### [id number] ####[facility] [address] [address] Abbi Choudhary M.D. [id number] NRBC ABS COUNT0.00 K/mcLNormal0.00-0.00Log[facility] HospitalComment on above:Performed By: #### [id number] ####[facility] [address] [address] Abbi Choudhary M.D. [id number] ABSOLUTE COUNT 0.08 K/mcLNormal0.00-0.30[facility] HospitalComment on above:Performed By: #### [id number] ####[facility] [address] [address] Abbi Choudhary M.D. [id number]/100 WBC (Bld)0.8 %[facility] HospitalComment on above:Performed By: #### [id number] ####[facility] [address] [address] Abbi Choudhary M.D. [id number] (Bld) [#/Vol]0.26 10*3/uLNormal 0.00-0.50[facility] HospitalComment on above:Performed By: #### [id number] ####[facility] [address] [address] Abbi Choudhary M.D. 36 [id number]/100 WBC (Bld)2.7 %NormalLogansport Memorial HospitalComment on above:Performed By: #### [id number] ####[facility] [address] [address] Abbi Choudhary M.D. [id number] distribution width (RBC) [Ratio] 12.6 %Guxgps25.6-14.8Log[facility]port Memorial HospitalComment on above:Performed By: #### [id number] ####[facility] [address] [address] Abbi Choudhary M.D. [id number] (Bld) [Volume fraction]33.1 %Low36.0-46.0Log[facility] HospitalComment on above:Performed By: #### [id number] ####[facility] [address] [address] Abbi Choudhary M.D. [id number] (Bld) [Mass/Vol]11.2 g/dLLow12.0-16.0[facility] HospitalComment on above:Performed By: #### [id number] ####[facility] [address] [address] Abbi Choudhary M.D. [id number] ABSOLUTE0.05 K/mcLNormal0.00-0.30[facility] Comment on above:Performed By: #### [id number] ####[facility] [address] [address] Abbi Choudhary M.D. [id number] PERCENT0.50 %[facility] HospitalComment on above:Result Comment: The IG parameter is the percentage of metamyelocytes, myelocytes and promyelocytes.An immature granulocyte count (IG) of 1% or more suggests the possibility of infection, an IG countof 3% is very likely related to an infection.Performed By: #### [id number] ####[facility] [address] [address] Abbi Choudhary M.D. 36 [id number] (Bld) [#/Vol]2.06 10*3/uLNormal0.90-4.00[facility] HospitalComment on above:Performed By: #### [id number] ####[facility] [address] [address] Abbi Choudhary M.D. [id number]/100 WBC (Bld) 21.3 %NormalJohnson Memorial Hospital HospitalComment on above:Performed By: #### [id number] ####[facility] [address] [address] Abbi Choudhary M.D. 36 [id number] (RBC) [Entitic mass]30.5 soBmuopx55.0-34.0[facility] Comment on above:Performed By: #### [id number] ####[facility] [address] [address] Abbi Choudhary M.D. [id number] (RBC) [Entitic vol]90.2 fLNormal 80.0-100.0Log[facility] HospitalComment on above:Performed By: #### [id number] ####[facility] [address] [address] Abbi Choudhary M.D. 36 [id number] CORPUSCULAR HEMOGLOBIN CONC33.8 g/tUXatbzx09.0-37.0[facility] HospitalComment on above:Performed By: #### [id number] ####[facility] [address] [address] Abbi Choudhary M.D. [id number] (Bld) [#/Vol] 0.54 10*3/uLNormal0.30-0.90[facility] HospitalComment on above:Performed By: #### [id number] ####[facility] [address] [address] Abbi Choudhary M.D. [id number]/100 WBC (Bld)5.6 %NormalJohnson Memorial Hospital HospitalComment on above:Performed By: #### [id number] ####[facility] [address] [address] Abbi Choudhary M.D. [id number] ABSOLUTE COUNT6.67 K/mcLNormal 1.70-7.00[facility] HospitalComment on above:Performed By: #### [id number] ####[facility] [address] [place], [place] [address] Abbi Choudhary M.D. 36 [id number]/100 WBC (Bld)69.1 %NormalLogansport Memorial HospitalComment on above:Performed By: #### [id number] ####[facility] [address] [address] Abbi Choudhary M.D. [id number] mean volume (Bld) [Entitic vol]8.9 fLLow9.4-12.4Log[facility] HospitalComment on above:Performed By: #### [id number] ####[facility] [address] [address] Abbi Choudhary M.D. 36 [id number] (Bld) [#/Vol]271 10*3/qHBurvwz962-792QxthgzLogansport Memorial Hospital Comment on above:Performed By: #### [id number] ####[facility] [address] [address] Abbi Choudhary M.D. [id number] (Bld) [#/Vol]3.67 10*6/uLLow 4.00-5.20[facility] HospitalComment on above:Performed By: #### [id number] ####[facility] [address] [address] Abbi Choudhary M.D. 36 [id number] (Bld) [#/Vol]9.66 10*3/uLNormal4.50-11.00[facility] Comment on above:Performed By: #### [id number] ####[facility] [address] [address] Abbi Choudhary M.D. [id number]-ZUMKJ, QUANTITATIVEon 12-07-2023 D-DIMER QUANTITATIVE0.42 mcg/mL FEUNormal0.27-0.49Log[facility] HospitalComment on above:Order Comment: A D-dimer concentration of <0.5 micrograms per milliliter FEU is considered a lowprobability for pulmonary embolus (PE) and deep venous thrombosis (DVT). Results of this test should always be interpreted in conjunction with the patient's medical history,clinical presentation, and other findings. Clinical diagnosis should not be based on the results of the D- dimer alone.Performed By: #### [id number] #### [facility] [address] [address] Abbi Choudhary M.D. [id number] Prov Noteon 22-17-3760CA Prov NoteNormalLogansport Memorial HospitalNT PRO BNPon 73-84-2423Fatswpzlrpx peptide B (Bld) [Mass/Vol]124 pg/mLNormal0-300Log[facility]port Memorial HospitalComment on above: Order Comment: Pride Study Cut-offsRule In:< /= 50 Years >450 pg/mL51 Years - 75 Years >900 pg/mL76 Years - 99 Years >1800 pg/mLRule Out:All patients <300 pg/mL Performed By: #### [id number] ####[facility] [address] [address] Abbi Choudhary M.D. [id number] GLUCOSE - RALSon 66-14-9919Yxnlrdt [Mass/Vol]339 mg/nFYfea71-43Jpvzvy43 [address] StreetComment on above:Performed By: #### [id number] ####[facility] [address] [address] Abbi Choudhary M.D. [id number] [Mass/Vol]454 mg/dLOff scale [address] Comment on above:Order Comment: Critical result acted upon time of test. Test performed at bedside.Performed By: #### [id number] ####[facility] [address] [address] Abbi Choudhary M.D. [id number] 99-38-5092YBDYAKOQ T DELTA CHANGE INTERPRETATIONDelta troponin requires at least 3 hours between collections.[facility] HospitalComment on above:Performed By: #### [id number] ####[facility] [address] [place], [place] [address] Abbi Choudhary M.D. [id number] T NG/L17 ng/LOff scale high<=14[facility] HospitalComment on above:Performed By: #### [id number] ####[facility] [address] [place], [place] [address] Abbi Choudhary M.D. [id number] TROPONIN T NG/L18 ng/LOff scale high<=14[facility] HospitalComment on above:Performed By: #### [id number] ####[facility] [address] [place], [place] [address] Abbi Choudhary M.D. [id number] TROPONIN T INTERPRETATIONPossible acute cardiac injury.[facility] HospitalComment on above:Performed By: #### [id number] ####[facility] [address] [place], [place] [address] Abbi Choudhary M.D. [id number] CHEST PA/APon 04-05-2241FO CHEST PA/APNormalLogansport Memorial HospitalComment on above:Order Comment: Injury/Trauma or Illness?:Illness/OtherHow long have you had these symptoms (acute/chronic)?:AcuteReason for exam?:cpHistory of cancer?:uSurgeries, chemotherapy, or radiation?:pacemakerType of Exam?:InitialAdditional signs and symptoms?:Pt arrived via ems from home with c/o 7/10 mid sternal chest pain that started 2 hours ago.COVID-19, Molecularon 15-84-0308PUUK-CoV-2 (COVID-19) RdRp gene EBONIE+probe Ql (Resp)Not detectedNot DetectedOhioHealthComment on above: Testing was performed using the [employer] ID NOW COVID-19 assay on the ID NOW platform. This test has not been approved for use in asymptomatic patients and its performance in this patient population has not been evaluated. Negative results do not rule out the presence of SARS-CoV-2/COVID-19. POC Influenza Aon 13-39-0489TZNMG Ag Ql (Nph)NegativeNegativeOhioHealth J.[facility] Influenza Bon 98-87-6368YLQDB Ag Ql (Nph)NegativeNegative KlicUjzgauXhvoVcippkAMZB-WkL-8 (COVID-19) RdRp gene EBONIE+probe Ql (Resp)on 27-94-8824Uzlxzwylpxdvuk and review of laboratory resultsNormalOAdena Regional Medical CenterEye - left US 2Don 50-85-9088UWFOur Lady Of Mercy HospitalRadiology Study observation (narrative)[facility] HospitalFUNDUS PHOTOGRAPHY-OUon 82-21-0725Thuid Eye Clear. Disc findings include normal observations. Vessel findings include A/V crossing changes, arteriole narrowing. Macula findings include microaneurysms, dot/blot hemorrhages. Cotton Wool Spots, Dot/Blot Hemorrhages. Interval change is baseline. Left Eye Vitreous Hemorrhage. Interval change is baseline.RADIOLOGYOSU [facility] Grady Memorial HospitalRadiology Study observation (narrative)OSOur Lady Of Mercy HospitalNo Panel Informationon 22-32-1003WVWTYXRHKL: Soft tissue swelling. No acute fracture evident. Healed, internally fixated distal fibular fracture with sequela of remote collateral ligamentous trauma at the ankle. RADIOLOGYEXAM: XR FOOT LEFT 3+ VIEWS, XR ANKLE LEFT 3+ VIEWS, XR TIBIA AND FIBULA LEFT 2 VIEWS, 08/26/2023 18:44 PM (accession [id number]), 08/26/2023 18:46 PM (accession [id number]), 08/26/2023 18:46 PM (accession [id number]) COMPARISON: Ankle radiographs dated May 16, 2008 [...] LEFT 2 VIEWS, 08/26/2023 18:44 PM (accession [id number]), 08/26/2023 18:46 PM (accession [id number]), 08/26/2023 18:46 PM (accession [id number]) COMPARISON: Ankle radiographs dated May 16, 2008 [...] remote collateral ligamentous trauma at the ankle. [facility] HospitalNo Panel InformationOrdered By: Kwaku Jay on 20-16-4842OAJMercy Health Anderson Hospital Work Phone: XR Ankle - left 3 Viewson 78-46-4395Dxrhdxlxc Study observation (narrative)[facility] HospitalXR Foot - left 3 [employer] 65-86-7553Kfgwpjprr Study observation (narrative)[facility] HospitalXR Tibia and Fibula - left Viewson 81-48-3146Ocnfjrdxj Study observation (narrative)[facility] HospitalCBC panel Auto (Bld)on 81-62-9474Hgnytqkblot distribution width (RBC) [Entitic vol]13.2 %11.6 - [...] [#/Vol]7.46 10*3/uLOhioHealthOhioHealthGlucose (Bld) [Mass/Vol]on 03-30-2023 Glucose [Mass/Vol]232 mg/hKCujh83 - 99 mg/dLOhioHealthInterpretation and review of laboratory resultsAbnormalOhioHealthOhioHealthGlucose [Mass/Vol]306 mg/dLHigh 65 - 99 mg/dLOhioHealthInterpretation and review of laboratory resultsAbnormal [facility] HospitalOhioHealthRenal function 1999 panelon 45-68-6037Sqanriw [Mass/Vol]3.2 g/dL3.2 - 5.2 g/dLOhioHealthAnion gap [Moles/Vol]10 mmol/L10 - 20 mmol/L OhioHealthCalcium [Mass/Vol]8.7 mg/dL8.4 - 10.2 mg/dLOhioHealthChloride [Moles/Vol]106 mmol/L98 - 108 mmol/LOhioHealthCreatinine [Mass/Vol]1.29 mg/dL High0.40 - 1.10 mg/dLOhioHealthGFR/1.73 sq M.predicted CKD-EPI (S/P/Bld) [Vol rate/Area]52Low- PINFOhioHealthComment on above:Estimated GFR was calculated using the 2020 CKD-EPI creatinine equation.Glucose [Mass/Vol]338 mg/mALcvd62 - 99 mg/dLOhioHealthHCO3 [Moles/Vol]25 mmol/L21 - 32 [...] that conforms to the NKF-ASN Task Force Recommendations.[facility] metabolic 1999 panelon 13-98-4987Entsh gap [Moles/Vol]13 mmol/L 10 - 20 mmol/LOhioHealthCalcium [Mass/Vol]9.2 mg/dL8.4 - 10.2 mg/dLOhioHealth Chloride [Moles/Vol]106 mmol/L98 - 108 mmol/LOhioHealthCreatinine [Mass/Vol]1.07 mg/dL0.40 - 1.10 mg/dLOhioHealthGFR/1.73 sq M.predicted CKD-EPI (S/P/Bld) [Vol rate/Area]65- PINFOhioHealthComment on above:Estimated GFR was calculated using the 2020 CKD-EPI creatinine equation.Glucose [Mass/Vol]122 mg/lUVtuq73 - 99 mg/dLOhioHealthHCO3 [Moles/Vol]25 mmol/L21 - 32 mmol/LOhioHealthInterpretation and review of laboratory resultsAbnormalOhioHealthPotassium [Moles/Vol]3.9 mmol/L3.5 - 5.1 mmol/LOhioHealthSodium [Moles/Vol]140 mmol/L135 - 145 mmol/L OhioHealthUrea nitrogen [Mass/Vol]15 mg/dL8 - 25 mg/dLOhioHealthUrea nitrogen/Creatinine [Mass ratio]14.0 mg/mg10.0 - 20.0[facility] has implemented the eGFR calculation approach that does not have a coefficient for race that conforms to the NKF-ASN Task Force Recommendations.[facility] Auto Differentialon 59-74-5425Zvripsmpp (Bld) [#/Vol]0.06 10*3/uLOhioHealthBasophils/100 WBC (Bld)0.6 %[facility] Eosinophils (Bld) [#/Vol]0.14 10*3/uLOhioHealthEosinophils/100 WBC (Bld)1.5 % [facility] HospitalErythrocyte distribution width (RBC) [Entitic vol]13.1 %11.6 - 14.8 % [facility] HospitalHematocrit (Bld) [Volume fraction]35.1 %Low36.0 - 46.0 %[facility] Hemoglobin (Bld) [Mass/Vol]11.9 g/dLLow12.0 - 16.0 g/dLMississippiHealthImmature granulocytes (Bld) [#/Vol]0.05 10*3/uLOhioHealthImmature granulocytes/100 WBC (Bld)0.50 [...] (RBC) [Entitic mass]30.5 pg26.0 - 34.0 pg [facility] HospitalHC (RBC) [Mass/Vol]33.9 g/dL31.0 - 37.0 g/dLOhHealthMCV [...] findings as detailed above. Workstation ID: [id number] [facility] HospitalRadiology Study observation (narrative)[facility] Chest Abdomen Pelvis Without ContrastOrdered By: Indra Serna on 31-30-1039FkohRzwfjh Work Phone: EKGon 05-83-6661DvbaTknoqqXrfmwvb (Bld) [Mass/Vol]on 45-60-3721Zbklkmc [Mass/Vol]260 mg/nKUebn82 - 99 mg/dLOhioHealthInterpretation and review of laboratory resultsAbnormalOhioHealthOhioHealthGlucose [Mass/Vol]88 mg/dL65 - 99 mg/dLOhioHealthInterpretation and review of laboratory results RixqloOmxtErepjbEdgqKtlibuRnU1d (Bld) [Mass fraction]on 17-87-6411Dncfkba glucose Estimated from glycated hemoglobin (Bld) [Mass/Vol]235 mg/nOXamm44 - 114 mg/dLOhioHealthInterpretation and review of laboratory resultsAbnormal OhioHealthOhioHealthHemoglobin A1con 93-00-6882UnJ9g (Bld) [Mass fraction]9.8 % High4.2 - 5.6 %[facility] HospitalHepatic function 2000 panelon 33-92-3873Ialcswp [Mass/Vol]3.8 g/dL3.2 - 5.2 g/dLOhioHealthALP [Catalytic activity/Vol]108 U/L40 - 150 U/LOhioHealthALT [Catalytic activity/Vol]7 U/L0-35 U/LOhioHealthAST [Catalytic activity/Vol]8 U/L0-35 U/LOhioHealthBilirubin [Mass/Vol]0.3 mg/dL0.0 - 1.3 mg/dLOhioHealthBilirubin.conjugated [Mass/Vol]mg/dL0.0 - 0.4 mg/dL OhioHealthProtein [Mass/Vol]6.8 g/dL6.0 - 8.0 g/dLOhioHealthLipaseon 03-29-2023 Lipase [Catalytic activity/Vol]37 U/L15 - 65 U/LOhioHealthNo Panel Informationon 08-10-6219Vdibr TubeHold for add-ons.OhioAkron Children'S HospitalComment on above:Auto resulted. OhioHealthInterpretation and review of laboratory resultsNormalOhioHealth [facility] DL <= 0.005 mIU/L Qnon 21-92-7594Uzxpnnbtltgqjs and review of laboratory resultsNormalOSt. Francis Hospital Qn2.94 m[IU]/LOhioHealthOhioHealthTroponin Ordered By: Shy Chou on 69-91-2508Wudge Difference Troponin T-1 ng/L< = - /+ 7 changeOhioHealthInterp Troponin T Delta ChangeProbable non-acute cardiac injury or late presentation of acute injury.OhioHealthTroponin T14 ng/LNINF - 14 ng/LOhioHealthOhioHealthTroponinOrdered By: Charisse Damon on 03-29-2023 Interpretation and review of laboratory resultsAbnormalOhioHealthTroponin T15 ng/LCritically highNINF - 14 ng/LOhioHealthTroponin T InterpretationPossible acute cardiac injury.[facility] CenterHealthXR Chest 1 Viewon 03-29-2023 Low lung volumes and small effusion suspected. [employer] Workstation ID: [id number] RISEXAMINATION: XR CHEST PA/AP [...] Low lung volumes and small effusion suspected. [employer] Workstation ID: [id number] [facility] HospitalRadiology Study observation (narrative)[facility] HospitalXR Chest 1 View Ordered By: Laura Hodge on 67-19-6758ZjiqZbnbcl Work Phone: Basic metabolic 2000 panelon 61-89-5260Dwnbc gap [Moles/Vol]14 mmol/L10 - 20 mmol/LOhioHealthCalcium [Mass/Vol]7.8 mg/dLLow8.4 - 10.2 mg/dLOhioHealthChloride [Moles/Vol]110 mmol/LHigh98 - 108 mmol/LOhioHealth Creatinine [Mass/Vol]1.19 mg/dLHigh0.40 - 1.10 mg/dLOhioHealthGFR/1.73 sq M.predicted CKD-EPI (S/P/Bld) [Vol rate/Area]58Low- PINFOhioHealthComment on above:Estimated GFR was calculated using the 2020 CKD-EPI creatinine equation. Glucose [Mass/Vol]227 mg/hWXdrs89 - 99 mg/dLOhioHealthHCO3 [Moles/Vol]20 mmol/L Low21 - [...] the NKF-ASN Task Force Recommendations.OhioHealthOhioHealthGlucose (Bld) [Mass/Vol]on 52-60-2837Raknehl [Mass/Vol]187 mg/pQRncw41 - 99 mg/dLOhioHealth Interpretation and review of laboratory resultsAbnormBrown Memorial HospitalioAkron Children'[facility] Hospital Glucose [Mass/Vol]257 mg/iQFrck43 - 99 mg/dLOhioHealthInterpretation and review of laboratory resultsAbnormBrown Memorial HospitalioEC[facility] metabolic 1999 panel Ordered By: Jayna Hart on 34-82-7008Zzagi gap [Moles/Vol]15 mmol/L10 - 20 mmol/LOhioHealthCalcium [Mass/Vol]8.6 [...] 25 mg/dLOhioHealthUrea nitrogen/Creatinine [Mass ratio]11.3 mg/mg10.0 - 20.0[facility] has implemented the eGFR calculation approach that does not have a coefficient for race that conforms to the NKF-ASN Task Force Recommendations.[facility]-FairhillCBC panel Auto (Bld)on 15-37-9437Fjwcohwzdnv distribution width (RBC) [Entitic vol]13.7 %11.6 - [...] 8.21 10*3/uLOhioHealthOhioHealthEchocardiogram completeOrdered By: Yan Jones on 46-61-0629Peaaek valve area3.88679pxZhjyCzvqep Work Phone: AV mean gradient3.90977uaJgEmelCyidsv Work Phone: AV peak gradient5.76769btKfVvkdBmhdvc Work Phone: [phone] %[facility] Work Phone: [employer] Work Phone: Echocardiogram completeon 38-64-8203Ilinjzt Info Name: ADDIE ORGAN Age: 47 years : 1975 Gender: Female Ht: 157 cm Wt: 114 kg BSA: 2.30 m2 BP: 82 / 62 mmHg Technical Quality: Fair Exam Date: 02/18/2023 6:42 PM Patient Status: Inpatient Director Business Development: Babs Barnes RDCS Exam Type: ECHOCARDIOGRAM COMPLETE Study Info Indications - Chest pain - Evaluate LV function Attending Physician: [facility] ALICIA Referring Physician: [id number] Dinh; [id number] BMI: 45.91 kg/m2 Summary 1. Normal LV [...] Peak Gradient 3 mmHg PV Regurgitation Doppler CT Peak Velocity 111.88 cm/s CT Peak Gradient 5 mmHg Mitral Valve Name Value Normal MV Doppler (more content not included)...SCYNEXISI SYNAPSE CVCooke, Yan Leal MD - 02/19/2023 Patient Info Name: ADDIE ORGAN Age: 47 years : 1975 Gender: Female Ht: 157 cm Wt: 114 kg BSA: 2.30 m2 BP: 82 / 62 mmHg Technical Quality: Fair Exam Date: 02/18/2023 6:42 PM Patient Status: Inpatient Director Business Development: aBbs Barnes RDCS Exam Type: ECHOCARDIOGRAM COMPLETE Study Info Indications - Chest pain - Evaluate LV function Attending Physician: [facility] ALICIA Referring Physician: MATTHIAS [place]; [id number] BMI: 45.91 kg/m2 Summary 1. Normal LV [...] Peak Gradient 3 mmHg PV Regurgitation Doppler CT Peak Velocity 111.88 cm/s CT Peak Gradient 5 mmHg Mitral Valve Name Value Normal MV Doppler MV Decel [place] 375 cm/s2 MV PHT 77 ms MV Area (PHT) 2.9 cm2 4.0-5.0 MV Diastolic Function MV E Peak Velocity 0.99 m/s MV A Peak Velocity 0.91 m/s MV E/A 1.1 MV Decel Time 265 ms MV Annular TDI MV Septal e' Velocity 8.2 cm/s >=8.0 MV E/e' (Septal) 12.1 <=8.0 MV Lateral e' Velo (more content not included)...[facility]HealthGlucose (Bld) [Mass/Vol]on 11-08-2535Ualiyob [Mass/Vol]332 mg/cCXhps19 - 99 mg/dLOhioHealth Interpretation and review of laboratory resultsAbnormalOAdams County Regional Medical CenterealthOhioHealth Glucose [Mass/Vol]267 mg/cXZlbs53 - 99 mg/dLOhioHealthInterpretation and review of laboratory resultsAbnormalOCleveland Clinic Medina HospitalioHealthGlucose [Mass/Vol]162 mg/dLHigh 65 - 99 mg/dLOhioHealthInterpretation and review of laboratory resultsAbnormal OhioAk[facility]S HospitalOhioHealthGlucose [Mass/Vol]63 mg/dLLow65 - 99 mg/dLOhioHealth Interpretation and review of laboratory resultsAbnormalOAdams County Regional Medical CenterealthOhioHealth Glucose [Mass/Vol]80 mg/dL65 - 99 mg/dLOhioHealthInterpretation and review of laboratory resultsNormalOhiPAealthOhioHealthLactate [Moles/Vol]on 02-19-2023 Interpretation and review of laboratory resultsNormalOAdams County Regional Medical CenterealWVUMedicine Barnesville HospitalioHealthLactic Acid, Plasmaon 86-19-4489Cnlettn [Moles/Vol]1.7 mmol/L0.6 - 2.0 mmol/LOhioHealth Troponin x 2 (Now and Repeat in 3 hours)on 53-63-4225Achbmapftcbzdh and review of laboratory resultsAbnormalOhioHealthTroponin T33 ng/LCritically highNINF - 14 ng/LOhioHealthTroponin T InterpretationPossible acute cardiac injury.[facility] metabolic 2000 panelon 87-45-0679Yrjvj gap [Moles/Vol]15 mmol/L 10 - 20 mmol/LOhioHealthCalcium [Mass/Vol]8.9 mg/dL8.4 - 10.2 mg/dLOhioHealth Chloride [Moles/Vol]105 mmol/L98 - 108 mmol/LOhioHealthCreatinine [Mass/Vol]0.99 mg/dL0.40 - 1.10 mg/dLOhioHealthGFR/1.73 sq M.predicted CKD-EPI (S/P/Bld) [Vol rate/Area]72- PINFOhioHealthComment on above:Estimated GFR was calculated using the 2020 CKD-EPI creatinine equation.Glucose [Mass/Vol]144 mg/bZIqdx14 - 99 mg/dLOhioHealthHCO3 [Moles/Vol]23 mmol/L21 - 32 mmol/LOhioHealthInterpretation and review of laboratory resultsAbnormalOhioHealthPotassium [Moles/Vol]3.8 mmol/L3.5 - 5.1 mmol/LOhioHealthSodium [Moles/Vol]139 mmol/L135 - 145 mmol/L OhioHealthUrea nitrogen [Mass/Vol]15 mg/dL8 - 25 mg/dLOhioHealthUrea nitrogen/Creatinine [Mass ratio]15.2 mg/mg10.0 - 20.0[facility] has implemented the eGFR calculation approach that does not have a coefficient for race that conforms to the NKF-ASN Task Force Recommendations.[facility] Auto Differentialon 12-39-9409Ovxezsyfp (Bld) [#/Vol]0.05 10*3/uLOhioHealthBasophils/100 WBC (Bld)0.6 %[facility] Eosinophils (Bld) [#/Vol]0.21 10*3/uLOhioHealthEosinophils/100 WBC (Bld)2.4 % [facility] HospitalErythrocyte distribution width (RBC) [Entitic vol]13.0 %11.6 - 14.8 % [facility] HospitalHematocrit (Bld) [Volume fraction]36.9 %36.0 - 46.0 %[facility] Hemoglobin (Bld) [Mass/Vol]12.3 g/dL12.0 - 16.0 g/dLOhioHealth Mansfield HospitalImmature granulocytes (Bld) [#/Vol]0.04 10*3/uLOhioHealthImmature granulocytes/100 WBC (Bld)0.50 %[facility]field HospitalComment on above:The IG parameter is the percentage of metamyelocytes, myelocytes and promyelocytes. An immature granulocyte count (IG) of 1% or more suggests the possibility of infection, an IG count of 3% is very likely related to an infection.Lymphocytes (Bld) [#/Vol]2.80 10*3/uLOhioHealth Lymphocytes/100 WBC (Bld)32.6 %[facility]field HospitalMCH (RBC) [Entitic mass]29.4 pg26.0 - 34.0 pgOhioHealthMCHC [...] OhioHealthWBC (Bld) [#/Vol]8.58 10*3/uLOhioHealthOhioHealthEKGon 02-18-2023 OhioHealthEchocardiogram completeon 15-12-3573Nwxyqhhms Study observation (narrative)OhioHealthGlucose (Bld) [Mass/Vol]on 29-80-0959Writzqs [Mass/Vol]204 mg/hCXmhb42 - 99 mg/dLOhioHealthInterpretation and review of laboratory results AbnormalOhioHealthOhioHealthGlucose [Mass/Vol]401 mg/dLCritically high65 - 99 mg/dLOhioHealthInterpretation and review of laboratory resultsAbnormalOhioHealth Critical result acted upon time of test. Test performed at bedside.[facility] OhioHealthGlucose [Mass/Vol]336 mg/rVZlcd68 - 99 mg/dLOhioHealthInterpretation and review of laboratory resultsAbnormalOhioHealthOhioHealthGlucose [Mass/Vol] 118 mg/eRDhvx59 - 99 mg/dLOhioHealthInterpretation and review of laboratory resultsAbnormalOhioHealthOhioHealthGlucose [Mass/Vol]183 mg/jMBetu73 - 99 mg/dL [facility]field HospitalInterpretation and review of laboratory resultsAbnormalOhioHealth [facility] Myocardial Perfusion Multiple SPECTOrdered By: Inessa Rao on 04-66-5856WD Stress Diastolic Wdpqtn41 mlOhioHealth Mansfield Hospital Work Phone: LV Stress Systolic Volume7 mlOhioHealth Mansfield Hospital Work Phone: Stress Nuc Stress EF86 %[facility] Work Phone: [facility] Work [facility]: [place] Myocardial Perfusion Multiple SPECTon 02-18-2023 Patient Info Name: ADDIE ORGAN Age: 47 years : 1975 Gender: Female Ht: 157 cm Wt: 114 kg BSA: 2.30 m2 Exam Date: 02/18/2023 8:50 AM Patient Status: Inpatient Contracts Paralegal: Aravind Wright, ROGELIO, Davide Mims RT (N), Hayden Mendieta R.T.(N), ROGELIO Exam Type: VT MYOCARDIAL PERFUSION MULTI SPECT Study Info Indications - Chest pain/anginal equiv, high CAD risk, not treadmill candidate Attending Physician: [facility] Nuclear Physician: Inessa Rao MD [id number] Primary Nurse: Sandra Sweeney RN Secondary Nurse: [...] size is normal. Radiopharmaceutical: Tc-99m Camera Used: TrackerSphereSPECOree [employer] Radiopharmaceutical: Tc-99m Camera Used: TrackerSphereSPECT Image Protocol Protocol: Rest/Stress 1 Day Rest [...] Date: 02/18/2023 8:50 AM Patient Status: Inpatient Contracts Paralegal: Aravind Wright, ROGELIO, Davide Mims, RT (N), Hayden Mendieta R.T.(N), ROGELIO Exam Type: NM MYOCARDIAL PERFUSION MULTI SPECT Study Info Indications - Chest pain/anginal equiv, high CAD risk, not treadmill candidate Attending Physician: [facility] Nuclear Physician: Inessa Rao MD [id number] Primary Nurse: Sandra Sweeney RN Secondary Nurse: [...] size is normal. Radiopharmaceutical: Tc-99m Camera Used: [employer] Radiopharmaceutical: Tc-99m Camera Used: TrackerSphereSPECT Image Protocol Protocol: Rest/Stress 1 Day Rest [...] study (more content not included)... [facility] Study observation (narrative)OhioThe MetroHealth SystemoponinOrdered By: Robin Odom on 53-99-0099Pvvmh Difference Troponin T-1 ng/L< = -/+ 7 change OhioHealthInterp Troponin T Delta ChangeProbable non-acute cardiac injury or late presentation of acute injury.[facility] HospitalInterpretation and review of laboratory resultsAbnormalOhioHealthTroponin T19 ng/LCritically highNINF - 14 ng/LOhioHealthOhioHealthTroponinon 63-94-7761Vqqwyg Troponin T Delta ChangeDelta troponin requires at least 3 hours between collections.OhioHealthInterpretation and review of laboratory resultsAbnormalOhioHealthTroponin T18 ng/LCritically highNINF - 14 ng/LOhioHealthOhioHealthTroponin x 2 (Now and Repeat in 3 hours)on 77-16-9868Nlxvx Difference Troponin T-2 ng/L< = -/+ 7 changeOhioHealthInterp Troponin T Delta ChangeProbable non-acute cardiac injury or late presentation of acute injury.MississippiHealthInterpretation and review of laboratory resultsAbnormal OhioHealthTroponin T18 ng/LCritically highNINF - 14 ng/LOhioHealthOhioHealthCBC Auto Differentialon 37-10-3704Vfavkzyfn (Bld) [#/Vol]0.07 10*3/uLOhioHealth Basophils/100 WBC (Bld)0.8 %OhioHealthEosinophils [...] 2. Chronic and incidental findings as above. [employer] Workstation ID: [id number] RISEXAMINATION: CT CHEST ABDOMEN [...] Musculoskeletal: No acute or suspicious osseous findings. DormNoise Bridger Preciado MD - 02/17/2023 EXAMINATION: CT [...] findings as above. DEEPA/mkv Workstation ID: [id number] [facility]field HospitalRadiology Study observation (narrative)[facility] Chest Abdomen Pelvis Without ContrastOrdered By: Bridger Webb on 75-65-1560XulbAqbdcl Work Phone: ct Head Or Brain Without Contraston 02-17-2023 1. No acute intracranial abnormality. Workstation ID: [id number] RISEXAMINATION: CT OF THE BRAIN. HISTORY: dizziness COMPARISON: Head CT most recently 06/11/2022 at [place] TECHNIQUE: Axial CT images were acquired from [...] COMPARISON: Head CT most recently 06/11/2022 at [place] TECHNIQUE: Axial CT images were acquired from [...] No acute intracranial abnormality. Workstation ID: [id number] [facility] HospitalRadiology Study observation (narrative)OhioHealthCT Head Or Brain Without ContrastOrdered By: Andrew Martin on 36-66-3418GoadXnmhnl Work Phone: Comprehensive metabolic 2000 panelon 53-87-6166Opqzwhv [Mass/Vol]3.8 g/dL3.2 - 5.2 g/dLOhioHealthALP [Catalytic activity/Vol]134 [...] using the 2020 CKD-EPI creatinine equation.Glucose [Mass/Vol]347 mg/zVBqtp95 - 99 mg/dLOhioHealthHCO3 [Moles/Vol] 23 mmol/L21 - 32 mmol/LOhioHealthInterpretation and review of laboratory results AbnormalOhioHealthPotassium [Moles/Vol]4.3 mmol/L3.5 - 5.1 mmol/LOhioHealth Protein [Mass/Vol]6.7 g/dL6.0 - 8.0 g/dLOhioHealthSodium [Moles/Vol]135 mmol/L 135 - 145 mmol/LOhioHealthUrea nitrogen [Mass/Vol]14 mg/dL8 - 25 mg/dLOhioHealth Urea nitrogen/Creatinine [Mass ratio]14.0 mg/mg10.0 - 20.0OhioPrem[facility] has implemented the eGFR calculation approach that does not have a coefficient for race that conforms to the NKF-ASN Task Force Recommendations.[facility] Mansfield HospitalECG 12 Leadon 81-52-4637Xtvpowpbhroesi and review of laboratory resultsAbnormalOhiPAHayde Lundberg DO 02/18/2023 12:40 AM ECG 12 Lead Date/Time: 02/17/2023 9:36 PM Performed by: Hayde Pickering DO Authorized by: Hayde Pickering DO Interpreted by ED attending physician Comparison: compared with previous ECG Rhythm: sinus rhythm BPM: 96 Other findings: LELA Clinical impression: abnormal ECGMUSEOhioHealthLipaseon 45-62-5022Hqshho [Catalytic activity/Vol]35 U/L15 - 65 U/LOhioHealthLipase [Catalytic activity/Vol]on 25-31-3134Oeressutsrsfbj and review of laboratory resultsNormal [facility]field HospitalNo Panel Informationon 25-14-2804Evezu TubeHold for add-ons.[facility] Comment on above:Auto resulted.OhioAkron Children'S HospitalOhioHealthTroponin x 2 (Now and Repeat in 3 hours)Ordered By: Zainab Echeverria on 37-00-8468Gtqnuhqotexeiw and review of laboratory resultsAbnormalOhioHealthTroponin T20 ng/LCritically highNINF - 14 ng/LOhioHealthTroponin T InterpretationPossible acute cardiac injury.[facility] HospitalUrinalysisOrdered By: Kendra Bae on 58-82-2995Gzixswyz Auto Ql (U) None SeenNone Seen /hpfOhioHealthBilirubin [...] are present they are quantified by microscopic examination.[facility] CenterioAkron Children'S HospitalXR Chest 1 Viewon 02-17-2023 Low lung volumes [...] crowding. No airspace consolidation. Workstation ID: [id number] [facility] HospitalRadiology Study observation (narrative)[facility] Mansfield HospitalXR Chest 1 View Ordered By: Elvis Mae on 25-82-8202YotuKmiobb Work Phone: cb AUTO DIFFon 60-66-2722TTWX #0.1 103/ulNormal 0.0-0.1The [facility]ers HospitalComment on above:Performed By: #### CBC ####[facility] [address] [place], [place] [address]MpMarisDevin Suresh Basophils/100 WBC (Bld)0.6 %Normal0.2-2.0The [facility]ers HospitalComment on above: Performed By: #### CBC ####[facility] Olsbsvbwbu[address] [place], [place] [address]Dr.Yilan ChangEO #0.2 103/ulNormal0.0-0.7The [place] HospitalComment on above:Performed By: #### CBC ####[facility] Nbsdoockxb[address] [place], [place] [address]Dr.Tishlan ChangEosinophils/100 WBC (Bld)1.8 %Normal0.9-7.0The [place] HospitalComment on above:Performed By: #### CBC ####[facility] Irgorgibym[address] [place], [place] [address]Dr.Tishlan ChangErythrocyte distribution width (RBC) [Ratio]12.0 %Normal 11.0-15.0The [facility] HospitalComment on above:Performed By: #### CBC ####[facility] Krppipozci[address] [place], [place] [address]Dr. Tishlan ChangHematocrit (Bld) [Volume fraction]28.3 %Critically low36.0-48.0The [facility]ers HospitalComment on above:Performed By: #### CBC ####[facility] Ezgthmgdox4540[address] [place], [place] [address]Dr.Devin ChangHemoglobin (Bld) [Mass/Vol]9.5 g/dLCritically low12.0-16.0The [facility] HospitalComment on above:Performed By: #### CBC ####[facility] Tooaylymzw3215[address] [place], [place] [address]Dr.Yilan ChangIG #0.05 10e3/ulCritically high0.00-0.03 The [facility] HospitalComment on above:Performed By: #### CBC ####[facility] Mbwxlmzdrx[address] [place], [place] [address]Dr.Yilan ChangIG % 0.6 %Critically high0.0-0.5The [facility] HospitalComment on above:Performed By: #### CBC ####[facility] Xipevivuqe135[address] [place], [place] [address]Dr.Yilan ChangLYMPH #1.9 103/ulNormal1.2-3.8The [facility] HospitalComment on above:Performed By: #### CBC ####[facility] [address] [place] [address]Dr.Devin SureshLymphocytes/100 WBC (Bld)20.4 % Critically low20.5-60.0The [facility] HospitalComment on above:Performed By: #### CBC ####[facility] Smgbvvbolg[address] [place], [place] [address]Dr. Devin SureshMANUAL DIFF REQNONormalThe [facility]ers HospitalComment on above: Performed By: #### CBC ####[facility] Sutzfjgkff[address] [place], [place] [address]Dr.Devin SureshH (RBC) [Entitic mass]30.6 pgNormal 26.7-34.0The [facility] HospitalComment on above:Performed By: #### CBC ####[facility] Bhyisgrjpc[address] [place], [place] [address]Dr. Devin SureshHC (RBC) [Mass/Vol]33.6 g/aMIrhdwn27.9-35.2The [facility] Comment on above:Performed By: #### CBC ####[facility] Cgqkyhigom[address] [place], [place] [address]Dr.Devin SureshMCV (RBC) [Entitic vol]91.3 fL Kvwxmc34.0-99.0The [facility] HospitalComment on above:Performed By: #### CBC ####[facility] Blgieiabdc59[address] [place], [place] [address]Dr. Devin SureshMONO #0.6 103/ulNormal0.3-0.8The [facility] HospitalComment on above: Performed By: #### CBC ####[facility] Yftaxuimyu[address] [place], [place] [address]Dr.Devin SureshMonocytes/100 WBC (Bld)7.1 %Normal 1.7-12.0The [facility] HospitalComment on above:Performed By: #### CBC ####[facility] Irtggcmdbj[address] [place], [place] [address]Dr. Tishemily SureshNEUT #6.3 103/ulNormal1.4-6.5The [facility] HospitalComment on above: Performed By: #### CBC ####[facility] Cobmytjstw[address] [place], [place] [address]Dr.Devin SureshNeutrophils/100 WBC (Bld)69.5 %Normal 43.0-75.0The [facility]ers HospitalComment on above:Performed By: #### CBC ####[facility] Odeblbqhbc[address] [place], [place] [address]Dr. Devin SureshPlatelet mean volume (Bld) [Entitic vol]9.5 fLNormal9.5-13.5The [place] HospitalComment on above:Performed By: #### CBC ####[facility] Wgomyflnki[address] [place], [place] [address]Dr.Tishemily SureshZvicpVKA186 103/ul Ztotui977-594Hpk [facility] HospitalComment on above:Performed By: #### CBC ####[facility] Fxcavnxhgz66[address] [place], [place] [address]Dr. Devin SureshRBC3.10 106/ulCritically low4.20-5.40The [facility] HospitalComment on above:Performed By: #### CBC ####[facility] Juzhapngxi[address] [place], [place] [address]Dr.Tishemily SureshWBC9.1 103/ulNormal4.0-11.0The [facility] HospitalComment on above:Performed By: #### CBC ####[facility] Tdbcvwimtj[address] [place], [place] [address]Dr.Devin SureshCT FOOT RT WO CONon 23-87-8512PB FOOT RT WO CONNormalThe [facility]ers HospitalDRUG SCREEN RAPID (URINE)on 69-75-9913WQYWtfubetaXpyqejDUFPOWVEOby Bellevue HospitalComment on above:Performed By: #### DRUGRPD ####[facility] Aamnjptveq[address] [place], [place] [address]Dr. Devin SureshBARNegativeNormalNEGATIVEMemorial Health System Marietta Memorial HospitalComment on above:Performed By: #### DRUGRPD ####[facility] Upttbsvpzo000[address] [place], [place] [address]Dr. Devin SureshBUPNegative NormalNEGATIVEMemorial Health System Marietta Memorial HospitalComment on above:Performed By: #### DRUGRPD ####[facility] Hnhnqnofde32[address] [place], [place] [address]Dr. Devin SureshBZONegativeNormalNEGATIVEMemorial Health System Marietta Memorial HospitalComment on above: Performed By: #### DRUGRPD ####[facility] Dsrwqwchxb038[address] [place], [place] [address]Dr. Devin SureshCOCNegativeNormalNEGATIVEMemorial Health System Marietta Memorial HospitalComment on above:Performed By: #### DRUGRPD ####[facility] Bqgyctuyeu[address] [place], [place] [address]Dr. Devin SureshCUT-OFFSE [facility] Rittman Medical CenterComment on above:Result Comment: AMP (Amphetamine): 500ng/mL, BAR (Barbituates): 200 ng/mL, BZO (Benzodiazepines): 15 0 ng/mL, BUP (Buprenorphine): 10 ng/mL, KATHY (Cocaine): 150 ng/mL, mAMP (Methamphetamine): 500 ng/mL, MTD (Methadone): 200 ng/mL, OPI (Opiates): 100 ng/mL, OXY (Oxycodone): 100 ng/mL, PCP (Phencyclidine): 25 ng/mL, PPX (Propoxyphene): 300 ng/mL, THC (Cannabinoids): 50 ng/mL, TCA (Trycyclic Antidepressants): 300 ng/mLPerformed By: #### DRUGRPD ####[facility] [address]jjrbxmoey[address] [place], [place] [address]Dr. Devin SureshDRUG CUT HEADERDRUG CLASS TEST SYSTEM CUT-OFF CONCENTRATIONS ARE FOLLOWS:NormalThe [facility] HospitalComment on above:Performed By: #### DRUGRPD ####[facility] Chzpxsykgb[address] [place], [place] [address]Dr. Devin SureshmAMP NegativeNormalNEGATIVEMemorial Health System Marietta Memorial HospitalComment on above:Performed By: #### DRUGRPD ####[facility] Rsyolcmvgn312[address] [place], [place] [address]Dr. Devin SureshMTDNegativeNormalNEGATIVEThe [facility] HospitalComment on above:Performed By: #### DRUGRPD ####[facility] [address] [place] [address]Dr. Yilan ChangOPINegativeNormalNEGATIVEWhite Hospital HospitalComment on above:Performed By: #### DRUGRPD ####[facility] Ed[address] [place] [address]Dr. Yilan ChangOXYNegative NormalNEGATIVEWhite Hospital HospitalComment on above:Performed By: #### DRUGRPD ####[facility] P[address]psdgvc[address] [place] [address]Dr. Yilan ChangPCPNegativeNormalNEGATIVEWhite Hospital HospitalComment on above: Performed By: #### DRUGRPD ####[facility] Veaevwkkld[address] [place], [place] [address]Dr. Yilan ChangPPXNegativeNormalNEGATIVEWhite Hospital HospitalComment on above:Performed By: #### DRUGRPD ####[facility] Mhhspddqwk[address] [place], [place] [address]Dr. Yilan ChangTCAPositive AbnormalNEGATIVEMemorial Health System Marietta Memorial HospitalComment on above:Performed By: #### DRUGRPD ####[facility] Ognqqpvpii[address] [place], [place] [address]Dr. Yilan ChangTHCNegativeNormalNEGATIVEMemorial Health System Marietta Memorial HospitalComment on above: Performed By: #### DRUGRPD ####[facility] Myinepxhxo280[address] [place], [place] [address]Dr. Yilan [facility] GLUCOSEon 10-22-2022 Glucose [Mass/Vol]400 mg/dLCritically zdta17-028VigMemorial Health System Marietta Memorial HospitalComment on above:Performed By: #### POCGLUC ####[facility] Tzvcupqlcb[address] [place], [place] [address]Dr. Yilan ChangGlucose [Mass/Vol]284 mg/dLCritically excb29-191LksMemorial Health System Marietta Memorial HospitalComment on above:Performed By: #### POCGLUC ####[facility] Qepgbyctzz[address] [place], [place] [address]Dr. Yilan ChangGlucose [Mass/Vol]161 mg/dLCritically fewp91-621Ibx [facility] Comment on above:Performed By: #### POCGLUC ####[facility] Hokuxengso[address] [place], [place] [address]Dr. Yilan ChangGlucose [Mass/Vol]283 mg/dL Critically nxjk56-912Pui [facility] HospitalComment on above:Performed By: #### POCGLUC ####[facility] Qypsmjtrgl[address] [place], [place] [address]Dr. Yilan ChangGlucose [Mass/Vol]316 mg/dLCritically ywxo80-886Eww [facility] HospitalComment on above:Performed By: #### POCGLUC ####[facility] Piqssnzeuz[address] [place], [place] [address]Dr. Yilan ChangPROF 14(COMP METB)on 39-43-7713Iiamqgj [Mass/Vol]2.4 g/dLCritically low3.4-5.0The [facility] HospitalComment on above:Performed By: #### CMP ####[facility] Uujdfssjpf[address] [place], [place] [address]Dr.Devin Suresh Albumin/Globulin [Mass ratio]0.6 {ratio}NormalThe [facility] HospitalComment on above:Performed By: #### CMP ####[facility] Mdsazvazbe[address] [place], [place] [address]Dr.Yilan ChangALP [Catalytic activity/Vol]115 U/L Neuqwa42-823Zcj [facility] HospitalComment on above:Performed By: #### CMP ####[facility] Tbzhgqwbig[address] [place], [place] [address]Dr. Yilan ChangALT [Catalytic activity/Vol]17 U/GYstkpl06-90Num [facility] Comment on above:Performed By: #### CMP ####[facility] Sloxvixddl[address] [place], [place] [address]Dr.Yilan ChangAnion gap [Moles/Vol]12.2 mmol/LNormalThe [facility] HospitalComment on above:Performed By: #### CMP ####[facility] Kjxywaifdp[address] [place], [place] [address]Dr. Yilan ChangAST [Catalytic activity/Vol]15 U/YCtdokk77-14Smh [facility] Comment on above:Performed By: #### CMP ####[facility] Dvthuobyhx46[address] [place], [place] [address]Dr.Yiemily ChangBilirubin [Mass/Vol]0.3 mg/dL Normal0.2-1.0The [facility] HospitalComment on above:Performed By: #### CMP ####[facility] Rwfmrxsebr[address] [place], [place] [address]Dr. Yilan ChangCalcium [Mass/Vol]8.6 mg/dLNormal8.5-10.1The [facility] HospitalComment on above:Performed By: #### CMP ####[facility] Idaqoyrmdl[address] [place], [place] [address]Dr.Yilan ChangChloride [Moles/Vol]104 mmol/LNormal 98-107The [facility] HospitalComment on above:Performed By: #### CMP ####[facility] [address]famdlnlyq[address] [place], [place] [address]Dr.Yilan ChangCO2 [Moles/Vol]25.7 mmol/EQegakj55.0-32.0The [facility] HospitalComment on above: Performed By: #### CMP ####[facility] Vjcjcesggp[address] [place], [place] [address]Dr.Yiemily ChangCreatinine [Mass/Vol]1.17 mg/dL Critically high0.55-1.02The [facility] HospitalComment on above:Performed By: #### CMP ####[facility] Posvtddlsc[address] [place], [place] [address]Dr.Yilan ChangEGFR-AF LEBANESE>60Normal>=60The [facility]ers HospitalComment on above:Performed By: #### CMP ####[facility] Xzuvozzggh[address] [place], [place] [address]Dr.Yilan ChangEGFR-NON AF JJVKTWDG58 mL/min/1.73m2 Critically low>=60The [facility] HospitalComment on above:Performed By: #### CMP ####[facility] Sltdiupprm[address] [place], [place] [address]Dr. Yilan ChangGlobulin (S) [Mass/Vol]4.1 g/dLNormMercy Health Urbana HospitalComment on above:Performed By: #### CMP ####[facility] Dorzuaasvq83[address] [place], [place] [address]Dr.Yilan ChangGlucose [Mass/Vol]262 mg/dLCritically qsoe75-099Udf [facility] HospitalComment on above:Performed By: #### CMP ####[facility] Vxumnwonqb55495[address] [place], [place] [address]Dr. Yilan ChangPotassium [Moles/Vol]3.9 mmol/LNormal3.5-5.1The [facility] Comment on above:Performed By: #### CMP ####[facility] Obwghqpnkl059[address] [place], [place] [address]Dr.Yilan ChangProtein [Mass/Vol]6.5 g/dL Normal6.4-8.2The [facility] HospitalComment on above:Performed By: #### CMP ####[facility] Txfgkxujme5224[address] [place], [place] [address]Dr. Yilan ChangSodium [Moles/Vol]138 mmol/IBklwra266-760Amk [facility] HospitalComment on above:Performed By: #### CMP ####[facility] Ylfnasxixz227[address] [place], [place] [address]Dr.Yilan ChangUrea nitrogen [Mass/Vol]23.0 mg/dL Critically high7.0-18.0The [facility] HospitalComment on above:Performed By: #### CMP ####[facility] Zjegjzrbwt169[address] [place], [place] [address]Dr. Yilan ChangUrea nitrogen/Creatinine [Mass ratio]19.7 mg/mgNoMary Rutan HospitalComment on above:Performed By: #### CMP ####[facility] Bczfaxjzjn29035[address] [place], [place] [address]Dr.Yilan ChangACETONE SERUMon 70-08-0057VQLBSBHOtogoephGhzanfXNYWAGDOPnl [facility] HospitalComment on above: Performed By: #### ACETON ####[facility] Bbbzzrinzm585[address] [place], [place] [address]Dr. Devin SureshCBC AUTO DIFFon 77-60-3673KFAJ #0.1 103/ulNormal0.0-0.1The [facility]ers HospitalComment on above:Performed By: #### CBC ####[facility] [address]qc[address] [place] [address]Dr. Devin ChangBasophils/100 WBC (Bld)0.4 %Normal0.2-2.0The [facility]ers HospitalComment on above:Performed By: #### CBC ####[facility] Vuobgvqlos030[address] [place] [address]Dr.Tishlan ChangEO #0.2 103/ulNormal0.0-0.7The [facility]ers HospitalComment on above:Performed By: #### CBC ####[facility] Imlyaqchme[address] [place] [address]Dr.Devin ChangEosinophils/100 WBC (Bld)1.1 %Normal0.9-7.0The [facility] HospitalComment on above:Performed By: #### CBC ####[facility] Hnowhnqgxu1838[address] [place], [place] [address]Dr.Devin ChangErythrocyte distribution width (RBC) [Ratio]12.0 %Normal 11.0-15.0The [facility] Hospitalment on above:Performed By: #### CBC ####[facility] Haonmvcbgz756057 [address] [place], [place] [address]Dr. Devin ChangHematocrit (Bld) [Volume fraction]34.1 %Critically low36.0-48.0The [facility]ers HospitalComment on above:Performed By: #### CBC ####[facility] Azzgmnofqq037157 [address] [place], [place] [address]Dr.Devin ChangHemoglobin (Bld) [Mass/Vol]11.4 g/dLCritically low12.0-16.0The [facility] HospitalComment on above:Performed By: #### CBC ####[facility] Xebjmograc0736[address] [place], [place] [address]Dr.Devin ChangIG #0.05 10e3/ulCritically high0.00-0.03 The [facility]ers HospitalComment on above:Performed By: #### CBC ####[facility] Mwroaxfgak50[address] [place] [address]Dr.Devin SureshIG % 0.4 %Normal0.0-0.5The [facility]ers HospitalComment on above:Performed By: #### CBC ####[facility] Fzwrfpftwm790[address] [place], [place] [address]Dr. Devin SureshLYMPH #1.6 103/ulNormal1.2-3.8The [facility] HospitalComment on above: Performed By: #### CBC ####[facility] Ihzwtaztym5738[address] [place], [place] [address]Dr.Devin SureshLymphocytes/100 WBC (Bld)11.9 % Critically low20.5-60.0The [facility] HospitalComment on above:Performed By: #### CBC ####[facility] Najzjhmxor0430[address] [place], [place] [address]Dr. Devin SureshMANUAL DIFF REQNONormalThe [facility]ers HospitalComment on above: Performed By: #### CBC ####[facility] Jllsxmmcpl964[address] [place], [place] [address]Dr.Devin SureshH (RBC) [Entitic mass]30.5 pgNormal 26.7-34.0The [facility]ers HospitalComment on above:Performed By: #### CBC ####[facility] Hfubhietny358[address] [place], [place] [address]Dr. Devin KerwinHC (RBC) [Mass/Vol]33.4 g/fLBesugv36.9-35.2The [facility] Comment on above:Performed By: #### CBC ####[facility] Jrgpedaxez258657 [address] [place], [place] [address]Dr.Devin KerwinV (RBC) [Entitic vol]91.2 fL Vjllfe17.0-99.0The [facility] HospitalComment on above:Performed By: #### CBC ####[facility] Oxgxcaknzj437[address] [place], [place] [address]Dr. Devin SureshMONO #0.7 103/ulNormal0.3-0.8The [facility] HospitalComment on above: Performed By: #### CBC ####[facility] Dnucurgufg39[address] [place] [address]Dr.Tishlan ChangMonocytes/100 WBC (Bld)5.4 %Normal 1.7-12.0The [facility] HospitalComment on above:Performed By: #### CBC ####[facility] Bhvjqqegci608257 [address] [place], [place] [address]Dr. Yilan ChangNEUT #11.0 103/ulCritically high1.4-6.5The [facility] HospitalComment on above:Performed By: #### CBC ####[facility] Hlolizxqdi926[address] [place], [place] [address]Dr.Yilan ChangNeutrophils/100 WBC (Bld)80.8 % Critically high43.0-75.0The [facility] HospitalComment on above:Performed By: #### CBC ####[facility] Nkqkampofh130[address] [place], [place] [address]Dr. Yilan ChangPlatelet mean volume (Bld) [Entitic vol]9.1 fLCritically low9.5-13.5 The [facility] HospitalComment on above:Performed By: #### CBC ####[facility] Kmdrbnuytd225[address] [place], [place] [address]Dr.Yilan QylvuUVR892 103/qaFrfcbw681-336Hce [facility] HospitalComment on above:Performed By: #### CBC ####[facility] Ehsuklacst1928[address] [place], [place] [address]Dr. Yilan ChangRBC3.74 106/ulCritically low4.20-5.40The [facility] HospitalComment on above:Performed By: #### CBC ####[facility] Qvprhvutgh400[address] [place], [place] [address]Dr.Yilan OxqhjZJU63.6 103/ulCritically high4.0-11.0The [facility] HospitalComment on above:Performed By: #### CBC ####[facility] Zxksnvluhp845[address] [place], [place] [address]Dr.Yilan ChangCRPon 90-17-0324SPL64.8 mg/dLCritically high<=1.0The [facility] HospitalComment on above:Performed By: #### CMP, CRP ####[facility] Irktxyhckk1734[address] [place], [place] [address]Dr. Devin ChangLACTATE/LACTIC ACIDon 41-25-5976Xcoruvr [Moles/Vol]1.6 mmol/LNormal0.4-2.0The [facility] HospitalComment on above: Performed By: #### LACT ####[facility] Wqiixpsivh614[address] [place], [place] [address]Dr. Devin ChangPH VENOUS BLOODon 61-03-1358GBY6 VENOUS 49.5 jyNrNznkii57.0-52.0The [facility]ers HospitalComment on above:Performed By: #### PHVEN ####[facility] Xozthmgisf1529[address] [place], [place] [address]Dr. Devin ChangpH VENOUS7.263Kwetnt5.330-7.430The [facility]ers HospitalComment on above:Performed By: #### PHVEN ####[facility] Ognazcoozr248[address] [place], [place] [address]Dr. Devin ChangPOINT OF CARE GLUCOSEon 10-21-2022 Glucose [Mass/Vol]151 mg/dLCritically jyuz97-543Uzo [facility] HospitalComment on above:Performed By: #### POCGLUC ####[facility] Rjxtdalmpe0820[address] [place], [place] [address]Dr. Devin ChangPROF 14(COMP METB)on 61-57-7826Zswilic [Mass/Vol]3.1 g/dLCritically low3.4-5.0The [facility] HospitalComment on above: Performed By: #### CMP, CRP ####[facility] Yjbuevfddb945[address] [place], [place] [address]Dr. Devin SureshAlbumin/Globulin [Mass ratio]0.6 {ratio}NormalThe [facility]ers HospitalComment on above:Performed By: #### CMP, CRP ####[facility] Gzoozargaj2616[address] [place], [place] [address]Dr. Yilan ChangALP [Catalytic activity/Vol]132 U/LCritically dajp43-106Skh [facility] HospitalComment on above:Performed By: #### CMP, CRP ####[facility] Hdmxdockju924357 [address] [place], [place] [address]Dr. Yilan ChangALT [Catalytic activity/Vol]20 U/JAiaduo51-01Zsi [facility] HospitalComment on above:Performed By: #### CMP, CRP ####[facility] Engykpvedm306457 [address] [place], [place] [address]Dr. Yilan ChangAnion gap [Moles/Vol]14.4 mmol/LNormalThe [facility] HospitalComment on above:Performed By: #### CMP, CRP ####[facility] Dvtittburf397[address] [place], [place] [address]Dr. Yilan ChangAST [Catalytic activity/Vol]20 U/LWeexyo44-20Qbj [facility] HospitalComment on above:Performed By: #### CMP, CRP ####[facility] Tapdaabsqm741057 [address] [place], [place] [address]Dr. Yilan ChangBilirubin [Mass/Vol]0.3 mg/dLNormal0.2-1.0The [facility] HospitalComment on above:Performed By: #### CMP, CRP ####[facility] Hnrksujjsa546[address] [place], [place] [address]Dr. Yilan ChangCalcium [Mass/Vol]9.2 mg/dLNormal8.5-10.1The [facility] HospitalComment on above:Performed By: #### CMP, CRP ####[facility] Zhfznauqmo874[address] [place], [place] [address]Dr. Yilan ChangChloride [Moles/Vol]101 mmol/LNormal 98-107The [facility] HospitalComment on above:Performed By: #### CMP, CRP ####[facility] Vjvotchykt0436[address] [place], [place] [address]Dr. Yilan ChangCO2 [Moles/Vol]26.6 mmol/RCpfldm27.0-32.0The [facility] HospitalComment on above:Performed By: #### CMP, CRP ####[facility] Ijnaargwbe3824[address] [place], [place] [address]Dr. Yilan ChangCreatinine [Mass/Vol]1.34 mg/dL Critically high0.55-1.02The [facility] HospitalComment on above:Performed By: #### CMP, CRP ####[facility] Aqiguslhmu04[address] [place], [place] [address]Dr. Yilan ChangEGFR-AF TPABYWOO57 mL/min/1.85u3Inzldfaxce low>=60The [facility] HospitalComment on above:Performed By: #### CMP, CRP ####[facility] Yazljdawes[address] [place], [place] [address]Dr. Yilan ChangEGFR- NON AF LEDKVUIQ05 mL/min/1.07l7Lpwqywgoxh low>=60The [facility] HospitalComment on above:Performed By: #### CMP, CRP ####[facility] Zriuejffqe101[address] [place], [place] [address]Dr. Yilan ChangGlobulin (S) [Mass/Vol]4.9 g/dL NormalThe [facility] HospitalComment on above:Performed By: #### CMP, CRP ####[facility] Flmwkwhsbk2435[address] [place], [place] [address]Dr. Yilan ChangGlucose [Mass/Vol]210 mg/dLCritically eedw62-341Rqj [facility] Comment on above:Performed By: #### CMP, CRP ####[facility] Bjcbmveseu[address] [place], [place] [address]Dr. Yilan ChangPotassium [Moles/Vol]4.0 mmol/LNormal3.5-5.1The [facility] HospitalComment on above: Performed By: #### CMP, CRP ####[facility] Fnmctjdeio215[address] [place], [place] [address]Dr. Yilan ChangProtein [Mass/Vol]8.0 g/dLNormal6.4-8.2 The [facility] HospitalComment on above:Performed By: #### CMP, CRP ####[facility] Sqtjymvikg0618[address] [place], [place] [address]Dr. Yilan Suresh Sodium [Moles/Vol]138 mmol/TDvwcpp368-980Tzd [facility] HospitalComment on above: Performed By: #### CMP, CRP ####[facility] Safegxlpuc[address] [place] [address]Dr. Yilan ChangUrea nitrogen [Mass/Vol]29.0 mg/dL Critically high7.0-18.0The [facility] HospitalComment on above:Performed By: #### CMP, CRP ####[facility] T[address]fjxehjo[address] [place] [address]Dr. Yilan ChangUrea nitrogen/Creatinine [Mass ratio]21.6 mg/mgNormalThe [facility] HospitalComment on above:Performed By: #### CMP, CRP ####[facility] Admaophpdq69[address] [place] [address]Dr. Yilan ChangSED RATE WESTERGRENon 52-22-8839AHR RATE88 mm/hrCritically high<=20The [facility] HospitalComment on above:Performed By: #### SEDR ####[facility] Vkvndeexnk09[address] [place], [place] [address]Dr. Yilan ChangXR ELBOW RT MIN 3 VIEWSon 56-32-1596MH ELBOW RT MIN 3 [facility] HospitalXR FOOT RT MIN 3 VIEWSon 14-12-0927OK FOOT RT MIN 3 [facility] HospitalBASIC METABOLIC PANELon 49-66-9887Gqqrs gap [Moles/Vol]14 mmol/LNormal 10-20The [facility] SystemComment on above:Performed By: #### CH8, CRP, MG ####[facility] MJVDJOXJJX4669 [place], [place], Calcium [Mass/Vol]9.1 mg/dLNormal8.4-10.4The [facility] SystemComment on above: Performed By: #### CH8, CRP, MG ####[facility] GFPEAKTASF4667 [place], [address]Vislfzoo [Moles/Vol]104 mmol/NLnvbsz63-258Cvt [facility] SystemComment on above:Performed By: #### CH8, CRP, MG ####[facility] WFEXBOHLBR9382 [place], [address]XZ8 [Moles/Vol]27 mmol/SRmtuey25-35Rdz [facility] HospitalroHealth SystemComment on above:Performed By: #### MARSHALL, CRP, MG ####[facility] FPCSAQILST7051 [place], [address]Kabvfobcze [Mass/Vol]0.90 mg/dLNormal0.50-1.10The [facility] SystemComment on above:Performed By: #### MARSHALL, CRP, MG ####S PATHOLOGY RLWMHNDGXR4416 [place], [address]OMYLLRVQY GFR (CKD-EPI)80 mL/min/1.73sqmNormal>=60The [facility] SystemComment on above: Result Comment: 2020 CKD [...] Med 1 Vol. 385 Issue 19 Pages 7668-1592Performed By: #### MARSHALL, CRP, MG ####S PATHOLOGY QCREFSGSKR9631 [place], [place], Glucose [Mass/Vol]82 mg/uVZrpzpo03-105Xfh [facility] SystemComment on above:Performed By: #### MARSHALL, CRP, MG ####[facility] ZOPVHQPMET7367 [place], [address]Rorbddzqo [Moles/Vol]3.6 mmol/LNormal 3.3-5.3The [facility] SystemComment on above:Performed By: #### MARSHALL, CRP, MG ####[facility] KZDISLAUVN8717 [place], [place], Sodium [Moles/Vol]141 mmol/IPnesnu816-492Sig [facility] [place], Oper[facility] By [facility] SystemComment on above: Performed By: #### MARSHALL, CRP, MG ####S PATHOLOGY DTJFFGQTAX[address] [place] [address], [address]Iqma nitrogen [Mass/Vol]18 mg/dLNormal8-22The [facility] [place], Operated By [facility] Health[facility] SystemComment on above:Performed By: #### CH8, CRP, MG ####[facility] PATHOLOGY LBSVNMTUMJ7[address] [place] [address], [address]C-JDYYLABM PROTEINon 20-08-2397DOJ4.8 mg/dLHigh<0.8The [facility] SystemComment on above: Performed By: #### CH8, CRP, MG ####[facility] PATHOLOGY TWKQQYVZHR2[address] [place] [address], [address]OQL WITH DIFFERENTIALon 60-02-4447Fluiyfcae (Bld) [#/Vol]0.11 10*3/uLNormal0.00-0.20The [facility] SystemComment on above: Performed By: #### CBCDSAT, ESR ####[facility] PATHOLOGY QJOBQEMNEM[address] [place] [address], [address]Ydkfoatbm/100 WBC (Bld)0.9 %Normal<=1.9The [facility] SystemComment on above:Performed By: #### CBCDSAT, ESR ####[facility] PATHOLOGY QEEKNRAFUJ9587[address] [place] [address], [address]Wiaviocthke (Bld) [#/Vol]0.23 10*3/uLNormal0.00-0.70The [facility] SystemComment on above: Performed By: #### CBCDSAT, ESR ####S PATHOLOGY JFHKLXHAZB697[address] [place] [address], [address]Dgfmtljkdxs/100 WBC (Bld)1.9 %Normal0.1-4.0The [facility] SystemComment on above:Performed By: #### CBCDSAT, ESR ####S PATHOLOGY ZXWUDRCULP0947[address] [place] [address], [address]Yectinxnzsh distribution width (RBC) [Ratio]12.6 %Uthwdy10.5-14.5The [facility] [place], [facility] Comment on above:Performed By: #### CBCDSAT, ESR ####[facility] JPDKGQDGYN79[address] [place] [address], [address]Lulfyukwem (Bld) [Volume fraction]37.9 %Uqlbta46.0-46.0The [facility] HospitalroHealth SystemComment on above: Performed By: #### CBCDSAT, ESR ####[facility] PATHOLOGY FOXPTPOKTL1497[address] [place] [address], [address]Qacnywfaxq (Bld) [Mass/Vol]12.6 g/dLNormal 12.0-15.0The [facility]roHealth SystemComment on above:Performed By: #### CBCDSAT, ESR ####[facility] PATHOLOGY PZEBRHXYAN8937[address] [place] [address], Lymphocytes (Bld) [#/Vol]3.20 10*3/uLNormal1.00-4.80The [facility]ro[facility] Comment on above:Performed By: #### CBCDSAT, ESR ####[facility] PATHOLOGY ZRAYEMGLRT5612[address] [place] [address], [address]Drzwnofhtuf/100 WBC (Bld)26.2 %Chaslo06.0-44.0The [facility] SystemComment on above:Performed By: #### CBCDSAT, ESR ####[facility] PATHOLOGY NFSPGJBTRH[address] [place] [address], [address]BGM (RBC) [Entitic mass]30.1 auPwgmgd23.0-34.0The [facility] SystemComment on above:Performed By: #### CBCDSAT, ESR ####[facility] PATHOLOGY YWZYUUASQD8510[address] [place] [address], [address]BDEZ (RBC) [Mass/Vol] 33.2 g/qPWskauc32.0-35.9The [facility] SystemComment on above:Performed By: #### CBCDSAT, ESR ####[facility] PATHOLOGY WXQMPGUGHF6[address] [place] [address], [address]WGP (RBC) [Entitic vol]91 iKFkaval43-108Hos [facility]ro[facility] Comment on above:Performed By: #### CBCDSAT, ESR ####[facility] PATHOLOGY SPQTCLXNHA[address] [place] [address], [address]FIBFZSAK DISTRIBUTION LXAAS14Bjou<=20The [facility] HospitalroHealth SystemComment on above:Performed By: #### RANDY, ESR ####[facility] PATHOLOGY XNFAGUPNMG4229[address] [place] [address], [address]Axgkkuotk (Bld) [#/Vol]0.62 10*3/uLNormal0.20-1.00The [facility]roHealth SystemComment on above:Performed By: #### CBCSAMYAT, ESR ####[facility] PATHOLOGY USITSLNMKP6765[address] [place] [address], [address]Ddzzpdivf/100 WBC (Bld) 5.1 %Normal2.0-11.0The [facility]roHealth SystemComment on above:Performed By: #### RANDY, ESR ####[facility] PATHOLOGY AAKUUTBGZY1879[address] [place] [address], [address]Hqnoylgzjgo (Bld) [#/Vol]8.05 10*3/uLHigh1.50-8.00The [facility] [place], Oper[facility] By [facility] SystemComment on above:Performed By: #### CBCDINO, ESR ####[facility] PATHOLOGY KASTIFPWEK[address] [place] [address], [address]Coyqczsnuwf/100 WBC (Bld)66.0 %Xttnef90.0-76.0The [facility] SystemComment on above:Performed By: #### RANDY, ESR ####[facility] PATHOLOGY TDVNWSSCEF[address] [place] [address], [address]Wfmlugtt mean volume (Bld) [Entitic vol]7.3 fLLow7.5-11.2The [facility] [place], Oper[facility] By [facility] SystemComment on above:Performed By: #### CBCSAMYAT, ESR ####[facility] PATHOLOGY IWMOJQUABV10[address] [place] [address], [address]Wcnkbfnca (Bld) [#/Vol]380 10*3/vRTswsfc761-474Tej [facility] [place], Oper[facility] By [facility] SystemComment on above: Performed By: #### CBCSAMYAT, ESR ####[facility] PATHOLOGY JLUGOGIVOI[address] [place] [address], [address]HYN (Bld) [#/Vol]4.18 10*6/uLNormal4.00-5.20The [facility] SystemComment on above:Performed By: #### CBCDSAT, ESR ####[facility] DLKTEZFXBN8956 [place], [address]EAH (Bld) [#/Vol]12.2 10*3/uLHigh4.5-11.5The [facility] SystemComment on above:Performed By: #### CBCDSAT, ESR ####[facility] WDMRFRAMBH4793 [place], [address]JY C-SPINE W/ CONTRASTon 91-63-4884KX C-SPINE W/ CONTRASTEXAMINATION: CT C-SPINE W/ CONTRAST 10/07/2022 04:29 AM CLINICAL HISTORY: cauda equina ASSOCIATED DIAGNOSIS: cauda equina ORDERING PROVIDER: NKIKO DING NOTE: COMPARISON: None TECHNIQUE: Thin isotropic [...] bulging without neural foraminal narrowing. MACRO: NoneNormalThe [facility] HospitalroAk[facility] SystemCT Cervical spine W contrast [place] 25-55-3778CUULPWENSIQ: CT C-SPINE W/ CONTRAST 10/07/2022 04:29 AM [...] bulging without neural foraminal narrowing. MACRO: None [facility] Cervical [facility] W contrast IVOrdered By: Kwaku Herman on 98-94-2576HcbndVmrzjy Work Phone: ct T-SPINE/L-SPINE W/ CONTRASTon 51-12-9620XW T-SPINE/L-SPINE W/ CONTRASTEXAMINATION: CT T-SPINE/L-SPINE W/ CONTRAST [...] central canal stenosis or nerve impingement. MACRO: [facility] SystemCT Thoracic and lumbar spine W contrast [place] 70-84-3499ZBXLPSTFCLB: CT T-SPINE/L-SPINE W/ CONTRAST 10/07/2022 04:29 AM [...] canal stenosis or nerve impingement. MACRO: None [facility] HospitalroAk[facility]'S HospitalMetroHealthConsultson 10-26-3135Luczvmxojzgei Authentication Interface Message TextSPINE TRAUMA H AND [...] Ortho Trauma Team A: Courtney Jessica PGY1 ([phone]) Jacob Lo PGY3 ([phone]) After 5pm, weekends, and holidays please page Ortho consult pager, [phone] NormalThe [facility] SystemED Provider Noteson 80-15-9649Wowdnbssjsfjh Authentication Interface Message Text ED RESIDENT CONTINUATION [...] diabetes mellitus with diabetic neuropathy, unspecified whether alf insulin use (HCC) [E11.40] Disposition: Home The [...] discharge paperwork. Kylee Brown, Rotating Resident, PGY-1NormalThe [facility] SystemERYTHROCYTE SEDIMENTATION RATEon 17-04-3135RVP (Bld) [Velocity]48 mm/hHigh<=30The [facility] Comment on above:Performed By: #### CBCDSAT, ESR ####[facility] [id number] [place], [address]PCRLOWWQZuc 10-07-2022 Magnesium [Mass/Vol]1.4 mg/dLLow1.6-2.8The [facility] SystemComment on above: Performed By: #### CH8, CRP, MG ####[facility] [id number] [place], [address]Vz Panel Informationon [id number] Study observation (narrative)MetroHealthPROTHROMBIN TIME AND INRon 33-09-1558NLI Coag (PPP) [Relative time]1.12 {INR}High0.90-1.10The [facility] SystemComment on above:Performed By: #### PT #### [facility] [address] [place], [address]OH Coag (PPP) [Time]12.6 sNormal9.7-12.9The The [facility] SystemComment on above:Performed By: #### PT #### [facility] [address] [place], [address]DLG Coag (PPP) [Relative time]1.12 {INR}High0.90 - 1.10 MetroHealthInterpretation and review of laboratory resultsAbnormalMetroHealthPT Coag (PPP) [Time]12.6 sMetroHealthMetroHealthTYPE AND SCREENon 01-84-2807OHA and Rh group Nom (Bld)Blood group A Rh(D) positiveMetroHealthABO and Rh group Nom (Bld)No Previous ResultsMetroHealthBlood group antibody screen QlNegative MetroHealthMetroHealthABO and Rh group Nom (Bld)Blood group A Rh(D) positive NormalThe MetroHealth SystemComment on above:Performed By: #### TS #### [facility] [address] [place] [address], [phone] and Rh group Nom (Bld)No Previous ResultsNormalThe MetroHealth SystemComment on above:Performed By: #### TS #### [facility] [address] [place] [address], [phone] INTNegativeNormalThe MetroHealth SystemComment on above:Performed By: #### TS #### [facility] [address] [place] [address], [id number] metabolic 2000 panelon 80-97-9132Zdcwt gap [Moles/Vol]14 mmol/L10 - 20MetroHealthCalcium [Mass/Vol]9.1 mg/dL8.4 [...] Med 1 Vol. 385 Issue 19 Pages 2335-3984 Glucose [Mass/Vol]82 mg/dL68 - 110 mg/dLMetroHealthInterpretation and review of laboratory resultsNormalMetroHealthPotassium [Moles/Vol]3.6 mmol/L3.3 - 5.3 mmol/LMetroHealthSodium [Moles/Vol]141 mmol/L135 - 148 mmol/LMetroHealthUrea nitrogen [Mass/Vol]18 mg/dL8 - 22 mg/dLMetroHealthC-REACTIVE PROTEINon 30-83-4418BYH [Mass/Vol]0.8 mg/dLHighNINF - 0.8 mg/dLMetroHealthCBC WITH DIFFERENTIALon 17-20-8901Fkhniafje (Bld) [#/Vol]0.11 10*3/uL0.00 - 0.20 K/uL MetroHealthBasophils/100 [...] 11.5 K/uL MetroHealthMetroHealthCHEMISTRYOrdered By: SYSTEM SYSTEM on 66-22-6529Unzrjnd [Mass/Vol]3.5 g/dLNormal3.3 - 5.0 gm/dLFTMC RemisolAlbumin/Globulin [Mass ratio] 0.9 {ratio}Low1.1 - 2.2[facility] RemisolALP [Catalytic activity/Vol]94 [iU]/hEskzcx13 - 98 Int._Unit/LFTMC RemisolALT No additional P-5'-P [Catalytic activity/Vol]12 [iU]/dNormal6 - 46 Int._Unit/LFTMC RemisolAnion gap [Moles/Vol]15 mmol/LNormal6 - 16 mEq/LFTMC RemisolAST [Catalytic activity/Vol]14 [iU]/dNormal5 - 43 Int._Unit/LFTMC RemisolBilirubin [Mass/Vol]0.5 mg/dLNormal0.0 - 1.1 mg/dLFTMC RemisolCalcium [Mass/Vol]9.0 mg/dLNormal8.9 - 11.1 mg/dLFTMC RemisolChloride [Moles/Vol]102 mmol/LMwmtac833 - 111 mmol/LFTMC RemisolCO2 [Moles/Vol]24 mmol/L Gxdjur63 - 31 mmol/LFTMC RemisolCreatinine [Mass/Vol]1.0 mg/dLNormal0.5 - 1.3 mg/dLFTMC RemisolGFR/1.73 sq M.predicted among non-blacks MDRD (S/P/Bld) [Vol rate/Area]71 mL/min/1.73 h6Lcbnmx>=59mL/min/1.73 m2FT Chem SGlobulin (S) [Mass/Vol]3.8 g/dLNormal1.4 - 4.0 gm/dLFT RemisolGlucose [Mass/Vol]223 mg/dL High55 - 199 mg/dLFT RemisolPotassium [Moles/Vol]3.7 mmol/LNormal3.5 - 5.3 mmol/LFTMC RemisolProtein [Mass/Vol]7.3 g/dLNormal6.0 - 7.8 gm/dLFT Remisol Sodium [Moles/Vol]137 mmol/UJisavg859 - 145 mmol/LFTMC RemisolUrea nitrogen [Mass/Vol]20 mg/dLNormal5 - 21 mg/dLLINDSAY [facility] RemisolUrea nitrogen/Creatinine [Mass ratio]20 mg/dvWwugtc23 - 20FT RemisolCHEMISTRYOrdered By: Lab ROPUser on 61-43-8716Rhchtbv [Mass/Vol]229 mg/lHZgrk76 - 99 mg/dLLINDSAY M[facility] POC SubsectionComment on above:Result Comment: Notified RN/YESSY Device [id number] Interpretation CodeFT POC SubsectionPOC User [id number] Interpretation CodeFT POC SubsectionPOC UsernameReynold BURCIAGAid Interpretation Code FT POC SubsectionED Provider Noteson 53-79-6196Stadqndhnsmsn Authentication Interface Message Text Attestation with edits by Jocelyn Bowen MD at 10/07/2022 5:51 PM ATTENDING NOTE Patient transferred for MRI for concern cauda equina. Signed out at 2300 awaiting spine eval and discussion with or [employer] regarding device compatibility. I saw and evaluated [...] Complaint Patient presents with Chart Transfer from [facility] for MRI Senior Statistician: not needed - patient preferred language is Qatari. The history is provided by the Patient. Addie Jean Baptiste is a 47 year old female PMH DM2 c/b severe diabetic neuropathy, retention, hypothyroidism, bipolar presenting to the ED for lower extremity weakness and incontinence. Patient was transferred from [facility] for concerns of cauda equina syndrome. [...] to CT myelogram Discussion with External Provider: Instructional Interventionist from spine service recommends MRI or CT myelogram. Negative CT myelogram - recommend to follow up outpatient Discussion with External Provider: Instructional Interventionist from IR service recommends CT myelogram as cardiology cannot interrogate pacemaker due to another emergent procedure. Secondary Considerations / Diagnoses Addressed During this Visit: DM assessed and could be contributing to patient's weakness from neuropathy. Evaluated (more content not included)...NormalThe MetroHealth SystemERYTHROCYTE SEDIMENTATION RATEon 89-25-9384MYF (Bld) [Velocity]48 mm/hHWMCHealth Interpretation and review of laboratory resultsAbnormalMetroBlanchard [facility] HEMATOLOGYOrdered By: SYSTEM SYSTEM on 28-68-7914Pqyyrwxdb/100 WBC (Bld)0.5 % Normal0.0 - 2.0 %[facility] HemeAutoSSBasophils/Leukocytes Auto (Bld) [Pure # fraction]0.1 E9/LNormal0.0 - 0.2 E9/LFTMC HemeAutoSSEosinophils/100 WBC (Bld)1.1 %Normal0.0 - 8.0 %[facility] HemeAutoSSEosinophils/Leukocytes Auto (Bld) [Pure # fraction]0.1 E9/LNormal0.0 - 0.5 E9/LFTMC HemeAutoSSLymphocytes/100 WBC (Bld) 16.5 %Eexolq99.0 - 50.0 %[facility] HemeAutoSSLymphocytes/Leukocytes Auto (Bld) [Pure # fraction]1.9 E9/LNormal1.0 - 4.0 E9/LFTMC HemeAutoSSMonocytes/100 WBC (Bld)4.7 %Normal4.0 - 14.0 %[facility] HemeAutoSSMonocytes/Leukocytes Auto (Bld) [Pure # fraction]0.6 E9/LNormal0.2 - 1.0 E9/LFTMC HemeAutoSSNeutrophils/100 WBC (Bld) 77.2 %High36.0 - 75.0 %[facility] HemeAutoSSNeutrophils/Leukocytes Auto (Bld) [Pure # fraction]9.1 E9/LHigh2.0 - 7.5 E9/LFTMC HemeAutoSSHEMATOLOGYOrdered By: Yolie Cuellar on 82-63-6059Axrmluwzzxu distribution width (RBC) [Ratio]12.6 %Xxnegl87.9 - 14.2 %[facility] HemeAutoSSHematocrit (Bld) [Volume fraction]37.9 %Bgxasm21.0 - 46.0 %[facility] HemeAutoSSHemoglobin (Bld) [Mass/Vol]12.7 g/tWXqyupj98.0 - 16.0 gm/dLFTMC HemeAutoSSMCH (RBC) [Entitic mass]30.3 gnGtevzp36.0 - 34.0 pgFTMC HemeAutoSSMCHC (RBC) [Mass/Vol]33.5 g/gHYeyfcg09.4 - 36.0 gm/dLFTMC HemeAutoSSMCV (RBC) [Entitic vol]90.5 kJNhwtyl48.0 - 100.0 fLFTMC HemeAutoSSPlatelet mean volume (Bld) [Entitic vol]6.8 fLNormal6.4 - 10.8 fLFTMC HemeAutoSSPlatelets (Bld) [#/Vol]332.0 E9/HQlbtrj345.0 - 500.0 E9/LFTMC HemeAutoSSRBC (Bld) [#/Vol]4.2 E12/LLow4.3 - 5.9 E12/LFTMC HemeAutoSSWBC corrected for nucl RBC Auto (Bld) [#/Vol]11.8 E9/LHigh4.0 - 11.0 E9/LFTMC HemeAutoSSMAGNESIUMon 10-06-2022 Magnesium [Mass/Vol]1.4 mg/dLLow1.6 - 2.8 mg/dLMetroHealthNo Panel Informationon 54-07-3216Jmtmizupywaeyk and review of laboratory resultsAbnormalMetroHealth MetroHealthXR KUB 1 VIEWon 12-49-3515KE KUB 1 [facility] CHEMISTRYOrdered By: Desi Lord on 72-50-8258Atefoet [Mass/Vol]166 mg/qIAobi76 - 99 mg/dLFTMC POC SubsectionComment on above:Result Comment: Notified RN/MDPOC Device [id number] Interpretation CodeFTMC POC SubsectionPOC User ID [id number] Interpretation CodeFTMC POC SubsectionPOC UsernameBMichi millsInvalid Interpretation CodeFTMC POC SubsectionGlucose [Mass/Vol]172 mg/dL High55 - 99 mg/dLFTMC POC SubsectionComment on above:Result Comment: Notified RN/MDPOC Device [id number] Interpretation CodeFTMC POC SubsectionPOC User [id number] Interpretation CodeFTMC POC SubsectionPOC Username Michi HuynhInvalid Interpretation CodeFTMC POC SubsectionCHEMISTRYOrdered By: SYSTEM SYSTEM on 65-26-8165Mkwee gap [Moles/Vol]10 mmol/LNormal6 - 16 mEq/L [facility] RemisolChloride [Moles/Vol]105 mmol/GLdmiad845 - 111 mmol/LFTMC RemisolCO2 [Moles/Vol]27 mmol/WBumcef62 - 31 mmol/LFTMC RemisolPotassium [Moles/Vol]4.8 mmol/LNormal3.5 - 5.3 mmol/LFTMC RemisolSodium [Moles/Vol]137 mmol/JOfdhda662 - 145 mmol/LFTMC RemisolCHEMISTRYOrdered By: Lab Pop on 33-86-6705Pldfhku [Mass/Vol]219 mg/lJNqbr68 - 99 mg/dLFTMC POC SubsectionComment on above:Result Comment: Cleaned MeterPOC Device [id number] Interpretation CodeFTMC POC SubsectionPOC User [id number] Interpretation CodeFTMC POC Subsection POC UsernameFCIERA CHISHOLMMARLEYInvalid Interpretation CodeFTMC POC SubsectionCHEMISTRY Ordered By: Elizabeth Vinson on 05-40-8158LrH5j (Bld) [Mass fraction]9.4 %High<=5.9% [facility] ChemAutoSSCHEMISTRYOrdered By: SYSTEM SYSTEM on 19-64-2334Gftkm gap [Moles/Vol]8 mmol/LNormal6 - 16 mEq/LFTMC RemisolCalcium [Mass/Vol]8.0 mg/dLLow 8.9 - 11.1 mg/dLFTMC RemisolChloride [Moles/Vol]108 mmol/NRoxagi044 - 111 mmol/L [facility] RemisolCO2 [Moles/Vol]26 mmol/OFuxyhh86 - 31 mmol/LFTMC RemisolCreatinine [Mass/Vol]1.1 mg/dLNormal0.5 - 1.3 mg/dLFTMC RemisolGFR/1.73 sq M.predicted among blacks MDRD (S/P/Bld) [Vol rate/Area]mL/min/1.73 v5Xdniwf>=59mL/min/1.73 m2FTMC Chem SGFR/1.73 sq M.predicted among non-blacks MDRD (S/P/Bld) [Vol rate/Area]54 mL/min/1.73 m2Low>=59mL/min/1.73 m2FTMC Chem SGlucose [Mass/Vol]152 mg/tARickof49 - 199 mg/dLFTMC RemisolPotassium [Moles/Vol]4.2 mmol/LNormal3.5 - 5.3 mmol/LFTMC RemisolSodium [Moles/Vol]138 mmol/FHrqxda125 - 145 mmol/LFTMC RemisolUrea nitrogen [Mass/Vol]27 mg/dLHigh5 - 21 mg/dLFTMC RemisolUrea nitrogen/Creatinine [Mass ratio]24 mg/fwTbcy71 - 20FT[facility] RemisolHEMATOLOGYOrdered By: ReturnHauler SYSTEM on 65-93-0730Iuunzrcia/100 WBC (Bld)0.8 %Normal0.0 - 2.0 %[facility] HemeAutoSSBasophils/Leukocytes Auto (Bld) [Pure # fraction]0.1 E9/LNormal0.0 - 0.2 E9/LFTMC HemeAutoSSEosinophils/100 WBC (Bld)2.3 %Normal0.0 - 8.0 %[facility] HemeAutoSSEosinophils/Leukocytes Auto (Bld) [Pure # fraction]0.2 E9/LNormal0.0 - 0.5 E9/LFTMC HemeAutoSSLymphocytes/100 WBC (Bld)29.8 %Uvfico14.0 - 50.0 %[facility] HemeAutoSSLymphocytes/Leukocytes Auto (Bld) [Pure # fraction]2.4 E9/LNormal1.0 - 4.0 E9/LFTMC HemeAutoSSMonocytes/100 WBC (Bld)6.7 %Normal4.0 - 14.0 %[facility] HemeAutoSSMonocytes/Leukocytes Auto (Bld) [Pure # fraction]0.5 E9/LNormal0.2 - 1.0 E9/LFTMC HemeAutoSSNeutrophils/100 WBC (Bld)60.4 %Gsgmno83.0 - 75.0 %[facility] HemeAutoSSNeutrophils/Leukocytes Auto (Bld) [Pure # fraction]4.8 E9/LNormal2.0 - 7.5 E9/LFTMC HemeAutoSSHEMATOLOGYOrdered By: Mansi Cortez on 09-14-2022 Erythrocyte distribution width (RBC) [Ratio]13.3 %Lcvsjs29.9 - 14.2 %[facility] HemeAutoSSHematocrit (Bld) [Volume fraction]32.5 %Low34.0 - 46.0 %[facility] HemeAutoSSHemoglobin (Bld) [Mass/Vol]10.9 g/dLLow12.0 - 16.0 gm/dLFTMC HemeAutoSSMCH (RBC) [Entitic mass]31.0 jpYusllk00.0 - 34.0 pgFTMC HemeAutoSSMCHC (RBC) [Mass/Vol]33.6 g/kDYikxkl28.4 - 36.0 gm/dLFTMC HemeAutoSSMCV (RBC) [Entitic vol]92.3 aRAskfjf30.0 - 100.0 fLFTMC HemeAutoSSPlatelet mean volume (Bld) [Entitic vol]7.0 fLNormal6.4 - 10.8 fLFTMC HemeAutoSSPlatelets (Bld) [#/Vol]325.0 E9/DEnxqau182.0 - 500.0 E9/LFTMC HemeAutoSSRBC (Bld) [#/Vol]3.5 E12/LLow4.3 - 5.9 E12/LFTMC HemeAutoSSWBC corrected for nucl RBC Auto (Bld) [#/Vol]8.0 E9/LNormal4.0 - 11.0 E9/LFTMC HemeAutoSSCHEMISTRYOrdered By: SYSTEM SYSTEM on 04-60-5891Cytlf gap [Moles/Vol]11 mmol/LNormal6 - 16 mEq/LFTMC Remisol Calcium [Mass/Vol]8.3 mg/dLLow8.9 - 11.1 mg/dLFTMC RemisolChloride [Moles/Vol] 105 mmol/WEletfg981 - 111 mmol/LFTMC RemisolCK [Catalytic activity/Vol]43 [iU]/d Dheldu15 - 261 Int._Unit/LFTMC RemisolCO2 [Moles/Vol]25 mmol/YXmcrhl07 - 31 mmol/LFTMC RemisolCreatinine [Mass/Vol]1.3 mg/dLNormal0.5 - 1.3 mg/dLFTMC RemisolGFR/1.73 sq M.predicted among blacks MDRD (S/P/Bld) [Vol rate/Area]54 mL/min/1.73 m2Low>=59mL/min/1.73 m2FTMC Chem SGFR/1.73 sq M.predicted among non- blacks MDRD (S/P/Bld) [Vol rate/Area]44 mL/min/1.73 m2Low>=59mL/min/1.73 m2FTMC Chem SGlucose [Mass/Vol]98 mg/tOVqrpfq55 - 199 mg/dLFTMC RemisolPotassium [Moles/Vol]4.3 mmol/LNormal3.5 - 5.3 mmol/LFTMC RemisolSodium [Moles/Vol]137 mmol/FPfzzgr751 - 145 mmol/LFTMC RemisolUrea nitrogen [Mass/Vol]26 mg/dLHigh5 - 21 mg/dLFTMC RemisolUrea nitrogen/Creatinine [Mass ratio]20 mg/blHyibdf00 - 20 [facility] RemisolLactate [Mass/Vol]1.0 mmol/LNormal0.5 - 2.2 mmol/LFTMC Remisol HEMATOLOGYOrdered By: [employer] SYSTEM on 26-42-5352Gyqmkzcwo/100 WBC (Bld)0.4 % Normal0.0 - 2.0 %[facility] HemeAutoSSBasophils/Leukocytes Auto (Bld) [Pure # fraction]0.0 E9/LNormal0.0 - 0.2 E9/LFTMC HemeAutoSSEosinophils/100 WBC (Bld)1.1 %Normal0.0 - 8.0 %[facility] HemeAutoSSEosinophils/Leukocytes Auto (Bld) [Pure # fraction]0.1 E9/LNormal0.0 - 0.5 E9/LFTMC HemeAutoSSLymphocytes/100 WBC (Bld) 17.6 %Knqgzn51.0 - 50.0 %[facility] HemeAutoSSLymphocytes/Leukocytes Auto (Bld) [Pure # fraction]1.6 E9/LNormal1.0 - 4.0 E9/LFTMC HemeAutoSSMonocytes/100 WBC (Bld)6.2 %Normal4.0 - 14.0 %[facility] HemeAutoSSMonocytes/Leukocytes Auto (Bld) [Pure # fraction]0.6 E9/LNormal0.2 - 1.0 E9/LFTMC HemeAutoSSNeutrophils/100 WBC (Bld) 74.7 %Detyhq44.0 - 75.0 %[facility] HemeAutoSSNeutrophils/Leukocytes Auto (Bld) [Pure # fraction]6.9 E9/LNormal2.0 - 7.5 E9/LFTMC HemeAutoSSHEMATOLOGYOrdered By: Mansi Cortez on 08-92-5385Fqnclymiyyl distribution width (RBC) [Ratio]13.5 % Rtebcq15.9 - 14.2 %[facility] HemeAutoSSHematocrit (Bld) [Volume fraction]32.0 %Low 34.0 - 46.0 %[facility] HemeAutoSSHemoglobin (Bld) [Mass/Vol]10.8 g/dLLow12.0 - 16.0 gm/dLFTMC HemeAutoSSMCH (RBC) [Entitic mass]30.7 btWratfq12.0 - 34.0 pgFTMC HemeAutoSSMCHC (RBC) [Mass/Vol]33.7 g/cIXgzyyy24.4 - 36.0 gm/dLFTMC HemeAutoSS MCV (RBC) [Entitic vol]91.1 nFRzuljy29.0 - 100.0 fLFTMC HemeAutoSSPlatelet mean volume (Bld) [Entitic vol]7.0 fLNormal6.4 - 10.8 fLFTMC HemeAutoSSPlatelets (Bld) [#/Vol]335.0 E9/CDfhvom918.0 - 500.0 E9/LFTMC HemeAutoSSRBC (Bld) [#/Vol] 3.5 E12/LLow4.3 - 5.9 E12/LFTMC HemeAutoSSWBC corrected for nucl RBC Auto (Bld) [#/Vol]9.3 E9/LNormal4.0 - 11.0 E9/LFTMC HemeAutoSSCHEMISTRYOrdered By: SYSTEM SYSTEM on 34-25-6441Mlsmeub [Mass/Vol]3.5 g/dLNormal3.3 - 5.0 gm/dLFTMC Remisol Albumin/Globulin [Mass ratio]1.0 {ratio}Low1.1 - 2.2[facility] RemisolALP [Catalytic activity/Vol]98 [iU]/fJpfmdv86 - 98 Int._Unit/LFTMC RemisolALT No additional P-5'-P [Catalytic activity/Vol]12 [iU]/dNormal6 - 46 Int._Unit/LFT[facility] RemisolAST [Catalytic activity/Vol]12 [iU]/dNormal5 - 43 Int._Unit/LFTMC RemisolBilirubin [Mass/Vol]0.7 mg/dLNormal0.0 - 1.1 mg/dLFTMC RemisolCalcium [Mass/Vol]9.0 mg/dL Normal8.9 - 11.1 mg/dLFTMC RemisolCreatinine [Mass/Vol]0.9 mg/dLNormal0.5 - 1.3 mg/dLFTMC RemisolGFR/1.73 sq M.predicted among blacks MDRD (S/P/Bld) [Vol rate/Area]mL/min/1.73 s2Xpvaxt>=59mL/min/1.73 m2FT Chem SGFR/1.73 sq M.predicted among non-blacks MDRD (S/P/Bld) [Vol rate/Area]mL/min/1.73 d4Wghxdw >=59mL/min/1.73 m2FT Chem SGlobulin (S) [Mass/Vol]3.6 g/dLNormal1.4 - 4.0 gm/dLFTMC RemisolGlucose [Mass/Vol]405 mg/fJRkaf26 - 199 mg/dLFT Remisol Lactate [Mass/Vol]1.2 mmol/LNormal0.5 - 2.2 mmol/LFTMC RemisolProtein [Mass/Vol] 7.1 g/dLNormal6.0 - 7.8 gm/dLFTMC RemisolTroponin I.cardiac [Mass/Vol]5.20 pg/mL Low10.10 - 27.10 pg/mLFT RemisolUrea nitrogen [Mass/Vol]22 mg/dLHigh5 - 21 mg/dLFTMC RemisolUrea nitrogen/Creatinine [Mass ratio]24 mg/qqMpol06 - 20[facility] RemisolCOAGULATIONOrdered By: Glynn Bryant on 43-85-1874lGOW Coag (PPP) [Time] 31.1 yYflxfl71.1 - 36.5 second(s)[facility] Auto CoagINR Coag (PPP) [Relative time]1.0 {INR}Invalid Interpretation CodeFT Auto CoagPT Coag (PPP) [Time]11.7 sNormal 9.4 - 12.5 second(s)[facility] Auto CoagGlucose Glucometer (BldC) [Mass/Vol]Ordered By: Shameka Romero on 77-78-3409Esyyqyf [Mass/Vol]459 mg/dLProtestant Deaconess HospitalComment on above:Random Glucose Reference Range is dependent on time and content of last meal. Glucose of more than 200 mg/dL in a nonstressed, ambulatory subject supports the diagnosis of Diabetes Mellitus. HEMATOLOGYOrdered By: SYSTEM SYSTEM on 08-72-4474Fmbjqhqyc/100 WBC (Bld)1.0 % Normal0.0 - 2.0 %[facility] HemeAutoSSBasophils/Leukocytes Auto (Bld) [Pure # fraction]0.1 E9/LNormal0.0 - 0.2 E9/LFTMC HemeAutoSSEosinophils/100 WBC (Bld)1.5 %Normal0.0 - 8.0 %[facility] HemeAutoSSEosinophils/Leukocytes Auto (Bld) [Pure # fraction]0.1 E9/LNormal0.0 - 0.5 E9/LFTMC HemeAutoSSLymphocytes/100 WBC (Bld) 21.4 %Wxwqva72.0 - 50.0 %[facility] HemeAutoSSLymphocytes/Leukocytes Auto (Bld) [Pure # fraction]2.1 E9/LNormal1.0 - 4.0 E9/LFTMC HemeAutoSSMonocytes/100 WBC (Bld)4.8 %Normal4.0 - 14.0 %[facility] HemeAutoSSMonocytes/Leukocytes Auto (Bld) [Pure # fraction]0.5 E9/LNormal0.2 - 1.0 E9/LFTMC HemeAutoSSNeutrophils/100 WBC (Bld) 71.3 %Ehwnzl43.0 - 75.0 %[facility] HemeAutoSSNeutrophils/Leukocytes Auto (Bld) [Pure # fraction]7.1 E9/LNormal2.0 - 7.5 E9/LFTMC HemeAutoSSHEMATOLOGYOrdered By: Mansi Cortez on 62-21-1843Nkntygdumxw distribution width (RBC) [Ratio]13.5 % Xsqxtn04.9 - 14.2 %[facility] HemeAutoSSHematocrit (Bld) [Volume fraction]35.4 %Normal 34.0 - 46.0 %[facility] HemeAutoSSHemoglobin (Bld) [Mass/Vol]11.7 g/dLLow12.0 - 16.0 gm/dLFTMC HemeAutoSSMCH (RBC) [Entitic mass]30.5 wfPphokd40.0 - 34.0 pgFTMC HemeAutoSSMCHC (RBC) [Mass/Vol]33.0 g/wXIhbjht63.4 - 36.0 gm/dLFTMC HemeAutoSS MCV (RBC) [Entitic vol]92.4 fFFzrbzq16.0 - 100.0 fLFT HemeAutoSSPlatelet mean volume (Bld) [Entitic vol]6.9 fLNormal6.4 - 10.8 fLLINDSAY [facility] [place] HemeAutoSSPlatelets (Bld) [#/Vol]317.0 E9/UPolqbo220.0 - 500.0 E9/[facility] HemeAutoSSRBC (Bld) [#/Vol] 3.8 E12/LLow4.3 - 5.9 E12/[facility] HemeAutoSSWBC corrected for nucl RBC Auto (Bld) [#/Vol]9.9 E9/LNormal4.0 - 11.0 E9/[facility] HemeAutoSSNo Panel InformationOrdered By: ANGPROCESSSERVER MICROBIOLOGY on 19-87-6426Umybf Culture CharcoalNo growth at 3 days. Final to follow at 7 days.[facility] HospitalBlood Culture CharcoalNo growth at 3 days. Final to follow at 7 days.[facility] HospitalNo Panel InformationOrdered By: Shameka Romero on 03-45-7208Ptiqbzu Glucose #[address]/[facility] HospitalBedside Glucose CommentGlu2: cleaned [facility] HospitalCHEMISTRY Ordered By: SYSTEM SYSTEM on 20-70-6605Hqapgpf [Mass/Vol]3.9 g/dLNormal3.3 - 5.0 gm/dLFTMC RemisolAlbumin/Globulin [Mass [...] mmol/LNormal 101 - 111 mmol/LFTMC RemisolCO2 [Moles/Vol]22 mmol/EEdiuey61 - 31 mmol/LFTMC RemisolCreatinine [Mass/Vol]1.0 mg/dLNormal0.5 - 1.3 mg/dLFTMC RemisolGFR/1.73 sq M.predicted among blacks MDRD (S/P/Bld) [Vol rate/Area]mL/min/1.73 b8Ekscxz >=59mL/min/1.73 m2[facility] Chem SGFR/1.73 sq M.predicted among non-blacks MDRD (S/P/Bld) [Vol rate/Area]60 mL/min/1.73 x0Fvavmf>=59mL/min/1.73 m2[facility] Chem S Globulin (S) [Mass/Vol]3.9 g/dLNormal1.4 - 4.0 gm/dLFTMC RemisolGlucose [Mass/Vol]178 mg/eWCjjlef04 - 199 mg/dLFTMC RemisolPotassium [Moles/Vol]3.7 mmol/LNormal3.5 - 5.3 mmol/LFTMC RemisolProtein [Mass/Vol]7.8 g/dLNormal6.0 - 7.8 gm/dLFTMC RemisolSodium [Moles/Vol]136 mmol/ZZyrbch912 - 145 mmol/LFTMC RemisolUrea nitrogen [Mass/Vol]17 mg/dLNormal5 - 21 mg/dLFTMC RemisolUrea nitrogen/Creatinine [Mass ratio]17 mg/juOeiwaq71 - 20FT[facility] RemisolHEMATOLOGY Ordered By: SYSTEM SYSTEM on 50-27-2543Ypujcgppn/100 WBC (Bld)1.0 %Normal0.0 - 2.0 %[facility] HemeAutoSSBasophils/Leukocytes Auto (Bld) [Pure # fraction]0.1 E9/L Normal0.0 - 0.2 E9/LFTMC HemeAutoSSEosinophils/100 WBC (Bld)1.2 %Normal0.0 - 8.0 %[facility] HemeAutoSSEosinophils/Leukocytes Auto (Bld) [Pure # fraction]0.1 E9/L Normal0.0 - 0.5 E9/LFTMC HemeAutoSSLymphocytes/100 WBC (Bld)20.1 %Mztvgh35.0 - 50.0 %[facility] HemeAutoSSLymphocytes/Leukocytes Auto (Bld) [Pure # fraction]2.1 E9/L Normal1.0 - 4.0 E9/LFTMC HemeAutoSSMonocytes/100 WBC (Bld)4.6 %Normal4.0 - 14.0 %[facility] HemeAutoSSMonocytes/Leukocytes Auto (Bld) [Pure # fraction]0.5 E9/LNormal 0.2 - 1.0 E9/LFTMC HemeAutoSSNeutrophils/100 WBC (Bld)73.1 %Lqikkb24.0 - 75.0 % [facility] HemeAutoSSNeutrophils/Leukocytes Auto (Bld) [Pure # fraction]7.7 E9/LHigh 2.0 - 7.5 E9/LFTMC HemeAutoSSHEMATOLOGYOrdered By: Mansi Cortez on 08-29-2022 Erythrocyte distribution width (RBC) [Ratio]14.1 %Vvddwp91.9 - 14.2 %[facility] HemeAutoSSHematocrit (Bld) [Volume fraction]37.6 %Trylpb56.0 - 46.0 %[facility] HemeAutoSSHemoglobin (Bld) [Mass/Vol]12.4 g/nYVwtbpd57.0 - 16.0 gm/dLFTMC HemeAutoSSMCH (RBC) [Entitic mass]30.4 uxFczsid37.0 - 34.0 pgFTMC HemeAutoSSMCHC (RBC) [Mass/Vol]33.0 g/jWZrcnkt15.4 - 36.0 gm/dLLINDSAY [facility] [place] HemeAutoSSMCV (RBC) [Entitic vol]92.1 oEIeijdn84.0 - 100.0 [facility] HemeAutoSSPlatelet mean volume (Bld) [Entitic vol]7.0 fLNormal6.4 - 10.8 [facility] HemeAutoSSPlatelets (Bld) [#/Vol]446.0 E9/BXgphoo296.0 - 500.0 E9/[facility] HemeAutoSSRBC (Bld) [#/Vol]4.1 E12/LLow4.3 - 5.9 E12/[facility] HemeAutoSSWBC corrected for nucl RBC Auto (Bld) [#/Vol]10.5 E9/LNormal4.0 - 11.0 E9/[facility] HemeAutoSSCalcium [Mass/volume] in Serum or PlasmaOrdered By: Jeana Martini on 05-16-2539Rhjjfrw [Mass/Vol]8.1 mg/dL8.6-10.3FSuburban Community Hospital & Brentwood HospitalCarbon dioxide, total [Moles/volume] in Serum or PlasmaOrdered By: Jeana Martini on 02-72-7708AO1 [Moles/Vol]25.9 mmol/L21.0-31.0[facility] HospitalChloride [Moles/volume] in Serum or PlasmaOrdered By: Jeana Martini on 11-13-4056Zfcckuin [Moles/Vol]111 mmol/D47-837PhrffroytProtestant Deaconess HospitalCreatinine [Mass/volume] in Serum or PlasmaOrdered By: Jeana Martini on 08-22-2022 Creatinine [Mass/Vol]1.22 mg/dL0.60-1.20[facility] HospitalGlucose Glucometer (BldC) [Mass/Vol]Ordered By: Jeana Martini on 86-86-6609Boftcgm [Mass/Vol]207 mg/dLProtestant Deaconess HospitalComment on above:Random Glucose Reference Range is dependent on time and content of last meal. Glucose of more than 200 mg/dL in a nonstressed, ambulatory subject supports the diagnosis of Diabetes Mellitus.Glucose [Mass/volume] in Serum or PlasmaOrdered By: Jeana Martini on 44-87-4613Rcamgbe [Mass/Vol]141 mg/nL00-058DlsetbdwiProtestant Deaconess HospitalComment on above:ADA recommended reference rangeRandom Glucose Reference Range is dependent on time and content of last meal. Glucose of more than 200 mg/dL in a nonstressed, ambulatory subject supports the diagnosisof Diabetes Mellitus.Magnesium [Mass/volume] in Serum or PlasmaOrdered By: Jeana Martini on 26-66-9787Sqjpgdpyu [Mass/Vol]1.6 mg/dL1.9-2.7FSuburban Community Hospital & Brentwood HospitalNo Panel InformationOrdered By: Jeana Martini on 91-60-8822Bbcyrpj Glucose CommentGlu2: cleaned meterProtestant Deaconess HospitalEstimated GFR (CKD-EPI)55.771 mL/MinProtestant Deaconess Hospital Pharmacy Creatinine Clearance (Chem70.62[facility] Phosphate [Mass/volume] in Serum or PlasmaOrdered By: Jeana Martini on 75-74-6743Aycjjprhs [Mass/Vol]3.8 mg/dL3.7-7.2FSuburban Community Hospital & [facility] Potassium [Moles/volume] in Serum or PlasmaOrdered By: Jeana Martini on 77-09-1188Ukskiljnz [Moles/Vol]4.0 mmol/L3.5-5.1FFirelands Regional Medical Centererum or plasma anion gap determinationOrdered By: Jeana Martini on 66-57-0512Mcjeu gap [Moles/Vol]10.1 mmol/L6.0-15.0[facility] Hospitalodium [Moles/volume] in Serum or PlasmaOrdered By: Jeana Martini on 47-15-1546Sgytsb [Moles/Vol]143 mmol/U921-872YdfxemznaProtestant Deaconess Hospital Urea nitrogen [Mass/volume] in Serum or PlasmaOrdered By: Jeana Martini on 53-25-2519Qxqr nitrogen [Mass/Vol]20 mg/dL7-25[facility] Basophils Auto (Bld) [#/Vol]Ordered By: Jeana Martini on 87-96-8803Wbhspepde (Bld) [#/Vol]0.1 10*3/uL0.0-0.2FSuburban Community Hospital & Brentwood HospitalBasophils/100 WBC Auto (Bld)Ordered By: Jeana Martini on 42-15-2639Srenxvwkt/100 WBC (Bld)0.8 %.[facility] HospitalEosinophils Auto (Bld) [#/Vol]Ordered By: Jeana Martini on 30-55-8918Almnyhcrthg (Bld) [#/Vol]0.2 10*3/uL0.0-0.45[facility] HospitalEosinophils/100 WBC Auto (Bld)Ordered By: Jeana Martini on 43-91-2393Dkylrthxnak/100 WBC (Bld)1.8 %.[facility] Erythrocyte distribution width Auto (RBC) [Ratio]Ordered By: Jeana Martini on 78-05-5898Sqzisowzdce distribution width (RBC) [Ratio]14.5 %11.9-15.3FSuburban Community Hospital & [facility] HospitalHematocrit Auto (Bld) [Volume fraction]Ordered By: Jeana Martini on 87-31-4586Ldbknffxjl (Bld) [Volume fraction]31.3 %34.0-46.4FSuburban Community Hospital & Brentwood HospitalHemoglobin [Mass/volume] in BloodOrdered By: Jeana Martini on 42-01-6930Iyckkgluol (Bld) [Mass/Vol]10.7 g/dL11.8-15.4FSuburban Community Hospital & [facility]wood HospitalLeukocytes [#/volume] corrected for nucleated erythrocytes in Blood by Automated counOrdered By: Jeana Martini on 08-21-2022 WBC corrected for nucl RBC Auto (Bld) [#/Vol]8.2 10*3/uL3.8-11.6FSuburban Community Hospital & [facility]wood HospitalLymphocytes Auto (Bld) [#/Vol]Ordered By: Jeana Martini on 33-92-1416Gquypzokzau (Bld) [#/Vol]1.7 10*3/uL1.00-4.8[facility] HospitalLymphocytes/100 WBC Auto (Bld)Ordered By: Jeana Martini on 30-35-0131Oktothxjeta/100 WBC (Bld)20.6 %.[facility] HospitalMCH Auto (RBC) [Entitic mass]Ordered By: Jeana Martini on 88-73-2394RQO (RBC) [Entitic mass]31.5 pg24.7-34.3FSuburban Community Hospital & [facility] HospitalMCHC Auto (RBC) [Mass/Vol]Ordered By: Jeana Martini on 41-70-9962XYDR (RBC) [Mass/Vol]34.3 g/dL 32.0-35.0[facility] HospitalMCV Auto (RBC) [Entitic vol]Ordered By: Jeana Martini on 51-42-0204RRZ (RBC) [Entitic vol]91.8 kP96-389FppzhcpxwProtestant Deaconess HospitalMonocytes Auto (Bld) [#/Vol]Ordered By: Jeana Martini on 10-24-1801Kaklumkfk (Bld) [#/Vol]0.6 10*3/uL0.0-0.8[facility] HospitalMonocytes/100 WBC Auto (Bld)Ordered By: Jeana Martini on 08-21-2022 Monocytes/100 WBC (Bld)7.4 %.[facility] HospitalNeutrophils Auto (Bld) [#/Vol]Ordered By: Jeana Martini on 36-89-2800Oqrvovkedlk (Bld) [#/Vol]5.7 10*3/uL1.8-7.7FSuburban Community Hospital & [facility]wood HospitalNeutrophils/100 WBC Auto (Bld) Ordered By: Jeana Martini on 25-25-1524Ygtdgrakeke/100 WBC (Bld)69.4 %.[facility] HospitalNucleated erythrocytes [Presence] in Blood by Automated countOrdered By: Jeana Martini on 64-97-2449Swgdxiwze RBC Auto Ql (Bld)0.0 /100{WBC}0-0.5FSuburban Community Hospital & [facility]wood HospitalPlatelet mean volume Auto (Bld) [Entitic vol]Ordered By: Jeana Martini on 09-58-2369Vkxoqdsi mean volume (Bld) [Entitic vol]6.9 fL6.3-10.7FSuburban Community Hospital & [facility]wood HospitalPlatelets Auto (Bld) [#/Vol]Ordered By: Jeana Martini on 70-58-5811Azvgbhmpv (Bld) [#/Vol]291 10*3/uL 150-450[facility] HospitalRBC Auto (Bld) [#/Vol]Ordered By: Jeana Martini on 65-59-7467DSE (Bld) [#/Vol]3.41 10*6/uL3.60-5.00[facility] HospitalWBC Auto (Bld) [#/Vol]Ordered By: Jeana Martini on 83-44-9335CZF (Bld) [#/Vol]8.2 10*3/uL3.8-11.6FSuburban Community Hospital & [facility] HospitalActivated partial thromboplastin time (aPTT) in platelet poor plasma by coagulation a Ordered By: Jacob Farfan on 54-94-3082gRWH Coag (PPP) [Time]62.3 s25.1-36.5 [facility] HospitalAlanine aminotransferase [Enzymatic activity/volume] in Serum or PlasmaOrdered By: Jacob Farfan on 08-20-2022 ALT [Catalytic activity/Vol]7 U/L7-52[facility] HospitalAlbumin [Mass/volume] in Serum or Plasma by Bromocresol green (BCG) dye binding metho Ordered By: Jacob Farfan on 13-06-0824Saebrfx BCG dye [Mass/Vol]3.6 g/dL 3.5-5.7FSuburban Community Hospital & [facility]wood HospitalAlkaline phosphatase [Enzymatic activity/volume] in Serum or PlasmaOrdered By: Jacob Farfan on 08-20-2022 ALP [Catalytic activity/Vol]82 U/R90-541UfkmakxkuProtestant Deaconess Hospital Amphetamine Screen Ql (U)Ordered By: Jacob Farfan on 25-28-9741Tyxbmgtywmtk Ql (U)NegativeNegativeProtestant Deaconess HospitalAspartate aminotransferase [Enzymatic activity/volume] in Serum or PlasmaOrdered By: Jacob Farfan on 73-40-1229FEI [Catalytic activity/Vol]9 U/L32-99RothmfcztProtestant Deaconess HospitalAutomated erythrocytes count in urine sediment (number/area)Ordered By: Jacob Farfan on 92-16-7106GAF Auto (Urine sed) [#/Area]5-9 [HPF]0-4FSuburban Community Hospital & [facility]wood HospitalAutomated leukocytes count in urine sediment (number/area)Ordered By: Jacob Farfan on 23-64-7320KIH Auto (Urine sed) [#/Area]10-19 [HPF]0-4FSuburban Community Hospital & [facility] Bacterial blood cultureOrdered By: Jeana Martini on 65-78-0717Tbzwhgeo identified Cx Nom (Bld)NO GROWTH 5 DAYSProtestant Deaconess Hospital Barbiturates [Presence] in Urine by Screen methodOrdered By: Jacob Farfan on 78-51-8393Jncbadjztiic Screen Ql (U)NegativeNegativeProtestant Deaconess HospitalBasophils Auto (Bld) [#/Vol]Ordered By: Jacob Farfan on 88-45-5920Aokgfahux (Bld) [#/Vol]0.1 10*3/uL0.0-0.2FSuburban Community Hospital & [facility]wood HospitalBasophils/100 WBC Auto (Bld)Ordered By: Jacob Farfan on 08-20-2022 Basophils/100 WBC (Bld)0.7 %.[facility] HospitalBenzodiazepines Screen Ql (U)Ordered By: Jacob Farfan on 49-63-5056Kzpaqhkepbljzmj Ql (U) NegativeNegativeProtestant Deaconess HospitalBenzoylecgonine [Presence] in Urine by Screen methodOrdered By: Jacob Farfan on 37-75-7653Oudxsbhaoewcybt Screen Ql (U)NegativeNegativeProtestant Deaconess HospitalBilirubin Test strip Ql (U)Ordered By: Jacob Farfan on 65-15-5725Bwqsocdfe Ql (U)Negative NegativeProtestant Deaconess HospitalBilirubin.total [Mass/volume] in Serum or PlasmaOrdered By: Jacob Farfan on 35-99-0470Mepswdmtr [Mass/Vol]0.4 mg/dL0.3-1.0[facility] HospitalC reactive protein [Mass/volume] in Serum or PlasmaOrdered By: Jeana Martini on 46-36-3497BEO [Mass/Vol]1.5 mg/dL 0.0-0.5FSuburban Community Hospital & Brentwood HospitalC reactive protein [Mass/volume] in Serum or PlasmaOrdered By: Jacob Farfan on 85-31-3913RRI [Mass/Vol]1.9 mg/dL0.0-0.5FSuburban Community Hospital & [facility] HospitalCalcium [Mass/volume] in Serum or PlasmaOrdered By: Jacob Farfan on 99-47-1620Uyqkgoe [Mass/Vol]9.2 mg/dL 8.6-10.3FSuburban Community Hospital & [facility] HospitalCannabinoids [Presence] in Urine by Screen methodOrdered By: Jacob Farfan on 63-39-2686Cirheiegdmmx Screen Ql (U)NegativeNegativeProtestant Deaconess HospitalComment on above:These are unconfirmed results and should not be used for legal purposes. Drug Cut-Off Concentration: AMPH 1000 ng/mL JULIANNA 200 ng/mL ALICE 200 ng/mL COCM 300 ng/mL OP 300 ng/mL PCP 25 ng/mL THC 20 ng/mLCarbon dioxide, total [Moles/volume] in Serum or PlasmaOrdered By: Jacob Farfan on 94-65-4996LE5 [Moles/Vol]28.0 mmol/L 21.0-31.0[facility] HospitalChloride [Moles/volume] in Serum or PlasmaOrdered By: Jacob Farfan on 70-87-7987Vuyuzvdw [Moles/Vol]105 mmol/L 98-107[facility] HospitalColor Auto (U)Ordered By: Jacob Farfan on 25-55-1494Aenxx (U)YellowYellowProtestant Deaconess Hospital Creatinine [Mass/volume] in Serum or PlasmaOrdered By: Jacob Farfan on 76-13-8670Eierjlkaic [Mass/Vol]0.93 mg/dL0.60-1.20[facility] HospitalEosinophils Auto (Bld) [#/Vol]Ordered By: Jacob Farfan on 08-20-2022 Eosinophils (Bld) [#/Vol]0.1 10*3/uL0.0-0.45[facility] Eosinophils/100 WBC Auto (Bld)Ordered By: Jacob Farfan on 08-20-2022 Eosinophils/100 WBC (Bld)1.3 %.[facility] HospitalErythrocyte distribution width Auto (RBC) [Ratio]Ordered By: Jacob Farfan on 08-20-2022 Erythrocyte distribution width (RBC) [Ratio]14.5 %11.9-15.3FSuburban Community Hospital & Brentwood HospitalErythrocyte sedimentation rate by Photometric methodOrdered By: Jacob Farfan on 29-95-8039HJA Photometric method (Bld) [Velocity]47 mm/hr 0-19[facility] HospitalGlobulin Calc (S) [Mass/Vol]Ordered By: Jacob Farfan on 29-60-5274Jvablouy (S) [Mass/Vol]2.8 g/dLProtestant Deaconess HospitalGlucose Glucometer (BldC) [Mass/Vol]Ordered By: Jacob Farfan on 48-11-5971Ylszlhf [Mass/Vol]226 mg/dLProtestant Deaconess Hospital Comment on above:Random Glucose Reference Range is dependent on time and content of last meal. Glucose of more than 200 mg/dL in a nonstressed, ambulatory subject supports the diagnosis of Diabetes Mellitus.Glucose [Mass/volume] in Serum or PlasmaOrdered By: Jacob Farfan on 41-97-0229Lswbgav [Mass/Vol]234 mg/sM57-899HzamlqwolProtestant Deaconess HospitalComment on above:ADA recommended reference rangeRandom Glucose Reference Range is dependent on time and content of last meal. Glucose of more than 200 mg/dL in a nonstressed, ambulatory subject supports the diagnosisof Diabetes Mellitus.Glucose mean value [Mass/volume] in Blood Estimated from glycated hemoglobinOrdered By: Ezekiel Mathew on 68-19-2341Wlvrlef glucose Estimated from glycated hemoglobin (Bld) [Mass/Vol]220 mg/dLProtestant Deaconess HospitalHematocrit Auto (Bld) [Volume fraction]Ordered By: Jacob Farfan on 43-24-2585Zpcnysirup (Bld) [Volume fraction]34.4 %34.0-46.4FSuburban Community Hospital & [facility] HospitalHemoglobin A1c percentageOrdered By: Ezekiel Mathew on 77-51-1314UiK2w (Bld) [Mass fraction]9.3 %4.3-5.6FSuburban Community Hospital & [facility]wood HospitalComment on above:Increased risk for diabetes: 5.7 - 6.4diabetes: >6.4glycemic control for adults with diabetes: <7.0Hemoglobin [Mass/volume] in BloodOrdered By: Jacob Farfan on 11-16-2275Pypmjlcezc (Bld) [Mass/Vol]11.6 g/dL11.8-15.4FSuburban Community Hospital & [facility]wood HospitalKetones Auto test strip (U) [Mass/Vol]Ordered By: Jacob Farfan on 86-66-3229Eregivx (U) [Mass/Vol]NegativeNegativeProtestant Deaconess HospitalLaboratory - Chemistry and Chemistry - challengeOrdered By: Jacob Farfan on 85-68-3010PCL/1.73 sq M.predicted MDRD (S/P/Bld) [Vol rate/Area]mL/min/{1.73_m2}[facility] HospitalLaboratory - CoagulationOrdered By: Jacob Farfan on 62-68-4327VU Coag (PPP) [Time]12.2 s 9.0-12.9[facility] HospitalLaboratory - UrinalysisOrdered By: Jacob Farfan on 95-97-2769Twtuozy casts LM Ql (Urine sed)0-8 [LPF]0-8 [facility] HospitalLeukocytes [#/volume] corrected for nucleated erythrocytes in Blood by Automated counOrdered By: Jacob Farfan on 86-34-5552LUB corrected for nucl RBC Auto (Bld) [#/Vol]8.5 10*3/uL3.8-11.6 [facility] HospitalLymphocytes Auto (Bld) [#/Vol]Ordered By: Jacob Farfan on 08-28-8390Jjocwssnmte (Bld) [#/Vol]2.3 10*3/uL1.00-4.8 [facility] HospitalLymphocytes/100 WBC Auto (Bld)Ordered By: Jacob Farfan on 30-07-5633Uskuzcrpnyh/100 WBC (Bld)27.3 %.[facility] HospitalH Auto (RBC) [Entitic mass]Ordered By: Jacob Farfan on 68-11-5866VHP (RBC) [Entitic mass]30.8 pg24.7-34.3FSuburban Community Hospital & [facility] HospitalMCHC Auto (RBC) [Mass/Vol]Ordered By: Jacob Farfan on 23-80-0676JGXK (RBC) [Mass/Vol]33.8 g/dL32.0-35.0[facility] HospitalMCV Auto (RBC) [Entitic vol]Ordered By: Jacob Farfan on 49-76-3216XWP (RBC) [Entitic vol]91.2 dW44-012YlrxbbdoiProtestant Deaconess HospitalMagnesium [Mass/volume] in Serum or PlasmaOrdered By: Jacob Farfan on 08-20-2022 Magnesium [Mass/Vol]1.2 mg/dL1.9-2.7FSuburban Community Hospital & [facility] HospitalMonocyte distribution width [Entitic volume] in Blood by AutomatedOrdered By: Jacob Farfan on 04-50-6209Tvbpviir distribution width Auto (Bld) [Entitic vol]20.72 % 0.00-20.00[facility] HospitalComment on above:For adults in ED, MDW > 20.0 may be associated with a higher risk of sepsis during the first 12 h rs of hospital admissionMonocytes Auto (Bld) [#/Vol]Ordered By: Jacob Farfan on 97-58-2607Tkrkxntzk (Bld) [#/Vol]0.5 10*3/uL0.0-0.8[facility] HospitalMonocytes/100 WBC Auto (Bld)Ordered By: Jacob Farfan on 70-50-0661Xuzjggkrc/100 WBC (Bld)6.0 %.[facility] Neutrophils Auto (Bld) [#/Vol]Ordered By: Jacob Farfan on 08-20-2022 Neutrophils (Bld) [#/Vol]5.5 10*3/uL1.8-7.7FSub[facility] Community Hospital & [facility] Neutrophils/100 WBC Auto (Bld)Ordered By: Jacob Farfan on 08-20-2022 Neutrophils/100 WBC (Bld)64.7 %.[facility] HospitalNitrite Test strip Ql (U)Ordered By: Jacob Farfan on 33-61-9783Jcmakis Ql (U)Negative NegativeProtestant Deaconess HospitalNo Panel InformationOrdered By: Jeana Martini on 99-76-1362Gfcoxra Glucose #2 CommentCleaned meterProtestant Deaconess HospitalNo Panel InformationOrdered By: Jacob Farfan on 08-20-2022 Pharmacy Creatinine Clearance (Chem91.29[facility] Nucleated erythrocytes [Presence] in Blood by Automated countOrdered By: Jacob Farfan on 05-85-4951Jiuvutbyh RBC Auto Ql (Bld)0.0 /100{WBC}0-0.5 [facility] HospitalOpiates [Presence] in Urine by Screen method Ordered By: Jacob Farfan on 53-11-4408Jxhmxyh Screen Ql (U)NegativeNegative [facility] HospitalPhencyclidine Screen Ql (U)Ordered By: Jacob Farfan on 59-58-4884Sncilrwmyyoph Ql (U)NegativeNegKettering Health Greene MemorialPlatelet mean volume Auto (Bld) [Entitic vol]Ordered By: Jacob Farfan on 14-51-3844Pywulyum mean volume (Bld) [Entitic vol]6.9 fL 6.3-10.7FSuburban Community Hospital & [facility]wood HospitalPlatelet poor plasma international normalized ratio (INR) by coagulation assay (relatOrdered By: Jacob Farfan on 15-12-0585GDN Coag (PPP) [Relative time]1.1 {INR}[facility] HospitalComment on above:INR Therapeutic Range A) Pre- [...] Auto (Bld) [#/Vol]Ordered By: Jacob Farfan on 32-74-4910Uhxhtuapg (Bld) [#/Vol]326 10*3/rZ055-078IfpkgijglProtestant Deaconess HospitalPotassium [Moles/volume] in Serum or PlasmaOrdered By: Jacob Farfan on 66-24-9505Cvyhteuan [Moles/Vol]3.3 mmol/L3.5-5.1FSuburban Community Hospital & [facility] HospitalProtein Auto test strip (U) [Mass/Vol]Ordered By: Jacob Farfan on 09-91-0297Luhdqfi (U) [Mass/Vol]100 mg/dLNegativeProtestant Deaconess HospitalProtein [Mass/volume] in Serum or PlasmaOrdered By: Jacob Farfan on 06-36-7183Crukxqt [Mass/Vol]6.4 g/dL6.4-8.9[facility] HospitalRBC Auto (Bld) [#/Vol]Ordered By: Jacob Farfan on 12-66-9307DTZ (Bld) [#/Vol] 3.77 10*6/uL3.60-5.00[facility] Hospitalerum or plasma albumin/globulin mass ratioOrdered By: Jacob Farfan on 08-20-2022 Albumin/Globulin [Mass ratio]1.3 {ratio}[facility] Hospitalerum or plasma anion gap determinationOrdered By: Jacob Farfan on 08-20-2022 Anion gap [Moles/Vol]11.3 mmol/L6.0-15.0[facility] Hospitalodium [Moles/volume] in Serum or PlasmaOrdered By: Jacob Farfan on 08-20-2022 Sodium [Moles/Vol]141 mmol/H551-045AwcwcfifzLutheran Hospitalpecific gravity Auto test strip (U) [Rel density]Ordered By: Jacob Farfan on 55-76-2433Buisvouz gravity (U) [Rel density]1.0171.001-1.030[facility] Hospitalquamous epithelial cells detection in urine sediment by light microscopyOrdered By: Jacob Farfan on 86-71-3539Muicqlsjhi cells.squamous LM Ql (Urine sed)3-4 [HPF]0-2FSuburban Community Hospital & [facility]wood HospitalTroponin I.cardiac [Mass/volume] in Serum or Plasma by Detection limit <= 0.01 ng/Ordered By: Jacob Farfan 15-50-7540Megzkfrz I.cardiac DL <= 0.01 ng/mL [Mass/Vol]8.2 pg/mL0.0-15.0[facility] HospitalUrea nitrogen [Mass/volume] in Serum or PlasmaOrdered By: Jacob Farfan 03-61-5557Qzcv nitrogen [Mass/Vol]15 mg/dL7-25[facility] HospitalUrine bacteria detection by automated methodOrdered By: Jacob Farfan on 14-25-5353Tkzkmwxn Auto Ql (U)1+None SeenProtestant Deaconess HospitalUrine clarity by refractometry automatedOrdered By: Jacob Farfan on 04-75-5937Rhzdimg Refractometry automated (U)ClearClearFSuburban Community Hospital & [facility] HospitalUrine glucose measurement by automated test strip (mass/volume)Ordered By: Jacob Farfna on 07-68-8538Uyljsdt Auto test strip (U) [Mass/Vol]>=1000 mg/dLNoWayne HealthCare Main CampusUrine hemoglobin detection by automated test stripOrdered By: Jacob Farfan on 67-68-0666Bpgxshjplu Auto test strip Ql (U)Trace NegativeProtestant Deaconess HospitalUrine leukocyte esterase detection by automated test stripOrdered By: Jacob Farfan on 46-67-2526Xqdbwnecu esterase Auto test strip Ql (U)NegativeNegativeProtestant Deaconess Hospital Urobilinogen Auto test strip (U) [Mass/Vol]Ordered By: Jacob Farfan on 62-37-1281Jeyxlafgoltf (U) [Mass/Vol]Normal mg/dLSelect Medical Specialty Hospital - CantonVitamin D+Metabolites [Mass/volume] in Serum or PlasmaOrdered By: Ezekiel Mathew on 52-08-0272Nmuwtpw D+Metabolites [Mass/Vol]< 7.0 ng/mL 30-100[facility] HospitalComment on above:VITAMIN D STATUS 25(OH)VITAMIN D RANGE (ng/mL) Deficient <20 Insufficient 20 to <91Dgdvtlodoe70 to 100Reference: Bernie MF,Hina ARELLANO, Tran THIBODEAUX, et al. Evaluation,treatment, and prevention of vitamin D deficiency; an Endocrine Society clinical practice guideline. JCEM. 2010; 96(7):1911-30.WBC Auto (Bld) [#/Vol]Ordered By: Jacob Farfan on 82-26-3957SES (Bld) [#/Vol]8.5 10*3/uL3.8-11.6FSuburban Community Hospital & [facility]wood HospitalpH Auto test strip (U)Ordered By: Jacob Farfan on 32-26-7078pA (U)6.5 [pH]5.0-9.0[facility] HospitalCHEMISTRYOrdered By: [employer] on 56-34-0910Tgkqjke [Mass/Vol] 3.6 g/dLNormal3.3 - 5.0 gm/dLFTMC RemisolAlbumin/Globulin [Mass ratio]1.1 {ratio}Normal1.1 - 2.2[facility] RemisolALP [Catalytic activity/Vol]87 [iU]/lDjiiql38 - 98 Int._Unit/LFTMC RemisolALT No additional P-5'-P [Catalytic activity/Vol]11 [iU]/dNormal6 - 46 Int._Unit/LFTMC RemisolAnion gap [Moles/Vol]10 mmol/LNormal6 - 16 mEq/LFTMC RemisolAST [Catalytic activity/Vol]16 [iU]/dNormal5 - 43 Int._Unit/LFTMC RemisolBilirubin [Mass/Vol]0.3 mg/dLNormal0.0 - 1.1 mg/dLFTMC RemisolCalcium [Mass/Vol]9.0 mg/dLNormal8.9 - 11.1 mg/dLFTMC RemisolChloride [Moles/Vol]102 mmol/OZfcgzo349 - 111 mmol/LFTMC RemisolCO2 [Moles/Vol]27 mmol/L Qrsaxp26 - 31 mmol/LFTMC RemisolCreatinine [Mass/Vol]0.9 mg/dLNormal0.5 - 1.3 mg/dLFTMC RemisolCRP [Mass/Vol]2.0 mg/dLHigh<=1.9mg/dLFTMC RemisolGFR/1.73 sq M.predicted among blacks MDRD (S/P/Bld) [Vol rate/Area]mL/min/1.73 d7Rioqyw >=59mL/min/1.73 m2[facility] Chem SGFR/1.73 sq M.predicted among non-blacks MDRD (S/P/Bld) [Vol rate/Area]mL/min/1.73 g9Ztbszc>=59mL/min/1.73 m2[facility] Chem S Globulin (S) [Mass/Vol]3.3 g/dLNormal1.4 - 4.0 gm/dLFTMC RemisolGlucose [Mass/Vol]204 mg/hHLpkr11 - 199 mg/dLFTMC RemisolLactate [Mass/Vol]1.2 mmol/L Normal0.5 - 2.2 mmol/LFTMC RemisolMagnesium [Mass/Vol]1.3 mg/dLNormal1.3 - 2.4 mg/dLFTMC RemisolPotassium [Moles/Vol]3.1 mmol/LLow3.5 - 5.3 mmol/LFTMC Remisol Protein [Mass/Vol]6.9 g/dLNormal6.0 - 7.8 gm/dLFTMC RemisolSodium [Moles/Vol]136 mmol/MPnulwb972 - 145 mmol/LFTMC RemisolTroponin I.cardiac [Mass/Vol]6.60 pg/mL Low10.10 - 27.10 pg/mLFTMC RemisolUrea nitrogen [Mass/Vol]17 mg/dLNormal5 - 21 mg/dLFTMC RemisolUrea nitrogen/Creatinine [Mass ratio]19 mg/djSodktp44 - 20[facility] RemisolCHEMISTRYOrdered By: Shannen Sosa on 62-48-3375Hgiecbsuxav peptide B (Bld) [Mass/Vol]47 pg/mLNormal5 - 80 pg/mLFTMC HemeManSSCOAGULATIONOrdered By: iGgi Morrison on 03-04-3490uFFA Coag (PPP) [Time]30.5 bEmdrmf41.1 - 36.5 second(s)[facility] Auto CoagINR Coag (PPP) [...] - 0.5 E9/L [facility] HemeAutoSSLymphocytes/100 WBC (Bld)18.0 %Ezesav89.0 - 50.0 %[facility] HemeAutoSS Lymphocytes/Leukocytes Auto (Bld) [Pure # fraction]1.6 E9/LNormal1.0 - 4.0 E9/L [facility] HemeAutoSSMonocytes/100 WBC (Bld)6.7 %Normal4.0 - 14.0 %[facility] HemeAutoSS Monocytes/Leukocytes Auto (Bld) [Pure # fraction]0.6 E9/LNormal0.2 - 1.0 E9/L [facility] HemeAutoSSNeutrophils/100 WBC (Bld)73.9 %Zbhkhf69.0 - 75.0 %[facility] HemeAutoSS Neutrophils/Leukocytes Auto (Bld) [Pure # fraction]6.8 E9/LNormal2.0 - 7.5 E9/L [facility] HemeAutoSSHEMATOLOGYOrdered By: Shannen Sosa on 39-90-3694Iznisnjzxlz distribution width (RBC) [Ratio]14.1 %Iohasw67.9 - 14.2 %[facility] HemeAutoSS Hematocrit (Bld) [Volume fraction]36.2 %Nldeff72.0 - 46.0 %[facility] HemeAutoSS Hemoglobin (Bld) [Mass/Vol]12.5 g/yNIxefik09.0 - 16.0 gm/dLFTMC HemeAutoSSMCH (RBC) [Entitic mass]31.1 vpSwozkp23.0 - 34.0 pgFTMC HemeAutoSSMCHC (RBC) [Mass/Vol]34.4 g/uXLzjkxt27.4 - 36.0 gm/dLFTMC HemeAutoSSMCV (RBC) [Entitic vol] 90.4 rUTlavoc37.0 - 100.0 fLFTMC HemeAutoSSPlatelet mean volume (Bld) [Entitic vol]7.2 fLNormal6.4 - 10.8 fLFTMC HemeAutoSSPlatelets (Bld) [#/Vol]333.0 E9/L Ksrdqx656.0 - 500.0 E9/LFTMC HemeAutoSSRBC (Bld) [#/Vol]4.0 E12/LLow4.3 - 5.9 E12/LFTMC HemeAutoSSSed Rate Pobqrvjkj45 mm/hNormal0 - 34 mm/hrFTMC HemeAutoSS WBC corrected for nucl RBC Auto (Bld) [#/Vol]9.2 E9/LNormal4.0 - 11.0 E9/LFTMC HemeAutoSSCBC AUTO DIFFon 30-48-0324QFPP #0.0 103/ulNormal0.0-0.1The [facility] Flower Hospitalment on above:Performed By: #### CBC ####[facility] [address] [place], [place] [address]Dr.Devin ChangBasophils/100 WBC (Bld)0.5 %Normal0.2-2.0[facility] HospitalComment on above:Performed By: #### CBC ####[facility] [address] [place], [place] [address]Dr.Tishlan ChangEO #0.1 103/ulNormal0.0-0.7The [facility] HospitalComment on above:Performed By: #### CBC ####[facility] [address] [place], [place] [address]Dr.Devin ChangEosinophils/100 WBC (Bld)1.6 %Normal 0.9-7.0The [facility] HospitalComment on above:Performed By: #### CBC ####[facility] [address] [place], [place] [address]Dr.Devin Suresh Erythrocyte distribution width (RBC) [Ratio]13.3 %Tyqhpz64.0-15.0The [facility] HospitalComment on above:Performed By: #### CBC ####[facility] [address]fez[address] [place], [place] [address]Dr.Devin SureshHematocrit (Bld) [Volume fraction]30.1 %Critically low36.0-48.0The [facility] HospitalComment on above:Performed By: #### CBC ####[facility] [address] [place], [place] [address]Dr.Devin SureshHemoglobin (Bld) [Mass/Vol]10.6 g/dL Critically low12.0-16.0The [facility] HospitalComment on above:Performed By: #### CBC ####[facility] Qnemuubeyl[address] [place], [place] [address]Dr. Devin SureshIG #0.04 10e3/ulCritically high0.00-0.03The [facility] HospitalComment on above:Performed By: #### CBC ####[facility] [address] [place] [address]Dr.Devin SureshIG %0.6 %Critically high0.0-0.5The [facility] HospitalComment on above:Performed By: #### CBC ####[facility] [address] [place], [place] [address]Dr.Devin SureshLYMPH #2.3 103/ulNormal1.2-3.8The [facility] HospitalComment on above:Performed By: #### CBC ####[facility] [address] [place], [place] [address]Dr. Devin Hernandezmphocytes/100 WBC (Bld)36.0 %Avxkia21.5-60.0[facility] Comment on above:Performed By: #### CBC ####[facility] [address] [place], [place] [address]Dr.Devin SureshMANUAL DIFF REQNONormalThe [facility] Shriners HospitalComment on above:Performed By: #### CBC ####[facility] [address]tr[address]clpe[address] [place], [place] [address]Dr.Devin SureshNYC HEALTH + [facility]PIT[facility] (RBC) [Entitic mass]31.1 spNgrcyp90.7-34.0[facility] HospitalComment on above: Performed By: #### CBC ####[facility] Lxvpkzhvru[address] [place], [place] [address]Dr.Devin SureshHC (RBC) [Mass/Vol]35.2 g/dLNormal 29.9-35.2The [facility] HospitalComment on above:Performed By: #### CBC ####[facility] Gltsgreulk[address] [place], [place] [address]Dr. Devin SureshV (RBC) [Entitic vol]88.3 dTWghpwv08.0-99.0[facility] Comment on above:Performed By: #### CBC ####[facility] Tw[address]akmkv[address] [place], [place] [address]Dr.Devin SureshMONO #0.4 103/ulNormal0.3-0.8 [facility] HospitalComment on above:Performed By: #### CBC ####[facility] [address] [place], [place] [address]Dr.Devin Suresh Monocytes/100 WBC (Bld)6.1 %Normal1.7-12.0[facility] HospitalComment on above: Performed By: #### CBC ####[facility] Cutrgczkbs[address] [place], [place] [address]Dr.Devin SureshNEUT #3.5 103/ulNormal1.4-6.5The [facility] HospitalComment on above:Performed By: #### CBC ####[facility] [address] [place], [place] [address]Dr.Devin SureshNeutrophils/100 WBC (Bld)55.2 %Bryxfv00.0-75.0[facility] HospitalComment on above:Performed By: #### CBC ####[facility] Hvpweqnzcn[address] [place], [place] [address]Dr.Devin SureshPlatelet mean volume (Bld) [Entitic vol]8.3 fLCritically low 9.5-13.5The [facility]ers HospitalComment on above:Performed By: #### CBC ####[facility] Lfhlcwwwua86[address] [place], [place] [address]Dr. Devin XsehtFYB614 103/qqFzrdyz640-939Ynj [facility] HospitalComment on above: Performed By: #### CBC ####[facility] Taymqlqqnb414[address] [place], [place] [address]Dr.Devin ChangRBC3.41 106/ulCritically low4.20-5.40The [facility] HospitalComment on above:Performed By: #### CBC ####[facility] Vkagngunpu367[address] [place], [place] [address]Dr.Devin ChangWBC6.3 103/ul Normal4.0-11.0The [facility] HospitalComment on above:Performed By: #### CBC ####[facility] Innhqbwtis676[address] [place], [place] [address]Dr. Yilan ChangPOINT OF CARE GLUCOSEon 04-67-6097Rxolgns [Mass/Vol]209 mg/dL Critically xdcj65-492Daf [facility] HospitalComment on above:Performed By: #### POCGLUC ####[facility] Jgvsmwfoqw[address] [place] [address]Dr. Tishlan ChangPROF 14(COMP METB)on 64-22-1844Exdwlbk [Mass/Vol]3.2 g/dL Critically low3.4-5.0The [facility] HospitalComment on above:Performed By: #### CMP ####[facility] Vqmolndywr0736[address] [place], [place] [address]Dr. Tishlan ChangAlbumin/Globulin [Mass ratio]1.1 {ratio}NormalThe [facility] Comment on above:Performed By: #### CMP ####[facility] Fjmhbjgmux158357 [address] [place], [place] [address]Dr.Tishlan ChangALP [Catalytic activity/Vol]85 U/PVvdtrw48-122Kmk [facility] HospitalComment on above:Performed By: #### CMP ####[facility] Fyfbitclux932[address] [place], [place] [address]Dr. Tishlan ChangALT [Catalytic activity/Vol]14 U/VGdzohj19-15Ewf [facility] Comment on above:Performed By: #### CMP ####[facility] Ukaijpfesr0100[address] [place], [place] [address]Dr.Devin ChangAnion gap [Moles/Vol]12.7 mmol/LNormalThe [facility] HospitalComment on above:Performed By: #### CMP ####[facility] Bqysshycpc3940[address] [place], [place] [address]Dr. Yilan ChangAST [Catalytic activity/Vol]14 U/LCritically yal18-37Hhj [facility] HospitalComment on above:Performed By: #### CMP ####[facility] Hdbehazmlu712[address] [place], [place] [address]Dr.Tishlan ChangBilirubin [Mass/Vol]0.4 mg/dLNormal0.2-1.0The [facility] HospitalComment on above:Performed By: #### CMP ####[facility] Iowxvewvus340[address] [place] [address]Dr.Yilan ChangCalcium [Mass/Vol]7.9 mg/dLCritically low8.5-10.1The [facility] HospitalComment on above:Performed By: #### CMP ####[facility] Uepkdwhrno280357 [address] [place], [place] [address]Dr.Yilan ChangChloride [Moles/Vol]106 mmol/FLmyzzi61-053Hya [facility] HospitalComment on above:Performed By: #### CMP ####[facility] Txphqiuojl612[address] [place], [place] [address]Dr.Yilan ChangCO2 [Moles/Vol]23.5 mmol/OZinpwr17.0-32.0The [facility] HospitalComc[facility] on above:Performed By: #### CMP ####[facility] Pkvboqfhhu774057 [address] [place], [place] [address]Dr.Yilan ChangCreatinine [Mass/Vol]0.88 mg/dLNormal0.55-1.02The [facility] HospitalComment on above: Performed By: #### CMP ####[facility] Rzuangccun712[address] [place], [place] [address]Dr.Yilan ChangEGFR-AF LEBANESE>60Normal>=60The [facility] on above:Performed By: #### CMP ####[facility] Bxogivambo873257 [address] [place], [place] [address]Dr.Yilan ChangEGFR-NON AF LEBANESE>60Normal>=60The [facility] HospitalComc[facility] on above:Performed By: #### CMP ####[facility] Vtysbbrxex604[address] [place], [place] [address]Dr. Yilan ChangGlobulin (S) [Mass/Vol]2.8 g/dLNormalThe [facility] HospitalComcoven[facility] on above:Performed By: #### CMP ####[facility] Hrdigzorjn308357 [address] [place], [place] [address]Dr.Yilan ChangGlucose [Mass/Vol]165 mg/dLCritically lcvc52-472Qja [facility] HospitalComc[facility] on above:Performed By: #### CMP ####[facility] Lrljojrkec67[address] [place] [address]Dr. Yilan ChangPotassium [Moles/Vol]3.2 mmol/LCritically low3.5-5.1The [facility] HospitalComment on above:Performed By: #### CMP ####[facility] Ifbehsgigw308557 [address] [place], [place] [address]Dr.Yilan ChangProtein [Mass/Vol]6.0 g/dLCritically low6.4-8.2The [facility] HospitalComment on above: Performed By: #### CMP ####[facility] Rnlsxzlfal886[address] [place], [place] [address]Dr.Yilan ChangSodium [Moles/Vol]139 mmol/LNormal 136-145The [facility] HospitalComment on above:Performed By: #### CMP ####[facility] Gwdprojlqi149957 [address] [place], [place] [address]Dr.Yilan ChangUrea nitrogen [Mass/Vol]5.0 mg/dLCritically low7.0-18.0The [facility] HospitalComment on above:Performed By: #### CMP ####[facility] Ifrcvgipmd139957 [address] [place], [place] [address]Dr.Yilan ChangUrea nitrogen/Creatinine [Mass ratio]5.6 mg/mgNormalThe [facility] HospitalComment on above:Performed By: #### CMP ####[facility] Ngufuocehx971657 [address] [place], [place] [address]Dr. Devin ChangCBC AUTO DIFFon 90-25-2945QFHG #0.0 103/ulNormal0.0-0.1The [facility] HospitalComcoven[facility] on above:Performed By: #### CBC ####[facility] Awenrljpop524457 [address] [place], [place] [address]Dr.Yilan ChangBasophils/100 WBC (Bld)0.3 %Normal0.2-2.0The [facility] HospitalComc[facility] on above:Performed By: #### CBC ####[facility] Yjxqwyuzot774[address] [place], [place] [address]Dr.Yilan ChangEO #0.1 103/ulNormal0.0-0.7The [facility] HospitalComment on above:Performed By: #### CBC ####[facility] Fgedwudysa641457 [address] [place], [place] [address]Dr.Tishemily ChangEosinophils/100 WBC (Bld)1.7 %Normal 0.9-7.0The [facility] HospitalComment on above:Performed By: #### CBC ####[facility] Yjtigtshbw979157 [address] [place], [place] [address]Dr.Devin Suresh Erythrocyte distribution width (RBC) [Ratio]13.4 %Nbdwih04.0-15.0The [facility] HospitalComment on above:Performed By: #### CBC ####[facility] Gtsmhhsxzj558057 [address] [place], [place] [address]Dr.Devin ChangHematocrit (Bld) [Volume fraction]28.6 %Critically low36.0-48.0The [facility] HospitalComment on above:Performed By: #### CBC ####[facility] Qvbbxakcfx168257 [address] [place], [place] [address]Dr.Devin ChangHemoglobin (Bld) [Mass/Vol]9.8 g/dL Critically low12.0-16.0The [facility] HospitalComment on above:Performed By: #### CBC ####[facility] Poteqapbhh627957 [address] [place], [place] [address]Dr. Devin ChangIG #0.04 10e3/ulCritically high0.00-0.03The [facility] HospitalComment on above:Performed By: #### CBC ####[facility] Tcoeelpqwv163257 [address] [place], [place] [address]Dr.Devin ChangIG %0.7 %Critically high0.0-0.5The [facility] HospitalComment on above:Performed By: #### CBC ####[facility] Opgntrnoon149357 [address] [place], [place] [address]Dr.Devin ChangLYMPH #1.8 103/ulNormal1.2-3.8The [facility] HospitalComment on above:Performed By: #### CBC ####[facility] Dsueyghaud739157 [address] [place], [place] [address]Dr. Devin ChangLymphocytes/100 WBC (Bld)30.9 %Xmrlvb67.5-60.0The [facility] Comment on above:Performed By: #### CBC ####[facility] Gtgqohqgrx411[address] [place], [place] [address]Dr.Devin KerwinMANUAL DIFF REQNONormalThe [facility] HospitalComment on above:Performed By: #### CBC ####[facility] Mmbfqaynqb819457 [address] [place], [place] [address]Dr.Devin SureshH (RBC) [Entitic mass]30.0 snKkozrj51.7-34.0The [facility] HospitalComment on above: Performed By: #### CBC ####[facility] Wpcamsakdf696957 [address] [place], [place] [address]Dr.Devin KerwinHC (RBC) [Mass/Vol]34.3 g/dLNormal 29.9-35.2The [facility] HospitalComment on above:Performed By: #### CBC ####[facility] Ymdxaambms180257 [address] [place], [place] [address]Dr. Devin SureshV (RBC) [Entitic vol]87.5 yTNilrxz27.0-99.0The [facility] Comment on above:Performed By: #### CBC ####[facility] Qhdjchectv658357 [address] [place], [place] [address]Dr.Devin SureshMONO #0.3 103/ulNormal0.3-0.8 The [facility] HospitalComment on above:Performed By: #### CBC ####[facility] Oezkzrkevx816157 [address] [place], [place] [address]Dr.Devin Suresh Monocytes/100 WBC (Bld)4.3 %Normal1.7-12.0The [facility] HospitalComment on above: Performed By: #### CBC ####[facility] Rjwkrsoacv643757 [address] [place], [place] [address]DrGonzalo SureshNEUT #3.6 103/ulNormal1.4-6.5The [facility] HospitalComment on above:Performed By: #### CBC ####[facility] Fbikrspimh105[address] [place], [place] [address]Dr.Devin SureshNeutrophils/100 WBC (Bld)62.1 %Pezsvd84.0-75.0The [facility] HospitalComment on above:Performed By: #### CBC ####[facility] Vrzqwrrpaj4019 [place] [address]Dr.Devin ChangPlatelet mean volume (Bld) [Entitic vol]8.5 fLCritically low 9.5-13.5The [facility] HospitalComment on above:Performed By: #### CBC ####[facility] Ujpuejnfcg260857 [address] [place], [place] [address]Dr. Devin MkkazDBB944 103/brPvmblc418-945Isy [facility] HospitalComment on above: Performed By: #### CBC ####[facility] Ujtgkjtccb639[address] [place], [place] [address]Dr.Devin ChangRBC3.27 106/ulCritically low4.20-5.40The [facility] HospitalComment on above:Performed By: #### CBC ####[facility] Ebwgsirfbp098957 [address] [place], [place] [address]Dr.Devin ChangWBC5.9 103/ul Normal4.0-11.0The [facility] HospitalComment on above:Performed By: #### CBC ####[facility] Tamjldrqsw901157 [address] [place], [place] [address]Dr. Devin SureshCBC W MANUAL DIFFon 19-95-5310PHQSDOUYPOLF8+NormalThe [facility] HospitalComment on above:Performed By: #### CBCMAN ####[facility] Srqjwffltd207157 [address] [place], [place] [address]Dr. Tishlan ChangATYPICAL LYMPH #NormalThe [facility] HospitalComment on above:Performed By: #### CBCMAN ####[facility] Brhbizzoie192157 [address] [place], [place] [address]Dr. Tishlan ChangATYPICAL LYMPH %NormalThe [facility] HospitalComment on above:Performed By: #### CBCMAN ####[facility] Tfcogmfxlj530257 [address] [place], [place] [address]Dr. Yilan ChangBAND #0.1 103/ulNormal0.0-0.3The [facility] Comment on above:Performed By: #### CBCMAN ####[facility] Vsyephtyzg0259 [place] [address]Dr. Yilan ChangBAND %1 %Normal0-5The [facility] HospitalComment on above:Performed By: #### CBCMAN ####[facility] Elcojdevtd6[address] [place] [id number]. Yilan ChangBASOM #0.10 103/ulNormal0.00-0.10The [facility] HospitalComment on above:Performed By: #### CBCMAN ####[facility] Wphyhigmvs1110 [place] [address]Dr. Yilan ChangBASOM %2.0 %Normal0.2-2.0The [facility] HospitalComment on above:Performed By: #### CBCMARLEE ####[facility] Vdhbokllyf72[address] [place], [place] [address]Dr. Yilan ChangBLAST #NormalThe [facility] Comment on above:Performed By: #### CBCMARLEE ####[facility] Whwwmaapcq680[address] [place], [place] [address]Dr. Yilan ChangBLAST %NormalThe [facility] HospitalComment on above:Performed By: #### CBCMARLEE ####[facility] Swvqbtebpm375[address] [place], [place] [address]Dr. Yilan ChangCORRECTED WBC Normal4.0-11.0The [facility] HospitalComment on above:Performed By: #### CBCMAN ####[facility] Lbujjdxrxc019[address] [place], [place] [address]Dr. Yilan ChangEOS #0.40 103/ulNormal0.00-0.70The [facility] HospitalComment on above: Performed By: #### CBCMAN ####[facility] Lxhafsblsk452757 [address] [place], [place] [address]Dr. Yilan ChangEOS%8.0 %Critically high0.9-7.0The [facility] HospitalComment on above:Performed By: #### CBCMAN ####[facility] Oyurvsfwsi824[address] [place], [place] [address]Dr. Yilan ChangHCT 29.5 %Critically low36.0-48.0The [facility] HospitalComment on above:Performed By: #### CBCMAN ####[facility] Aucnyuihun785[address] [place], [place] [address]Dr. Devin SureshHGB10.0 g/dlCritically low12.0-16.0The [facility] Comment on above:Performed By: #### CBCMAN ####[facility] Snhbxtlyzw1026[address] [place], [place] [address]Dr. Devin SureshLYMPHM #0.35 103/ulCritically low1.20-3.80The [facility] HospitalComment on above:Performed By: #### CBCMARLEE ####[facility] Byhbgkdjcu1035[address] [place], [place] [address]Dr. Devin SureshLYMPHM%7.0 %Critically low20.5-60.0The [facility] HospitalComment on above:Performed By: #### CBCMARLEE ####[facility] Uvrwejjgvp694157 [address] [place], [place] [address]Dr. Devin SureshMCH30.0 qtWpzocf32.7-34.0The [facility] HospitalComment on above:Performed By: #### CBCMARLEE ####[facility] Xaujwqutsk197[address] [place], [place] [address]Dr. Devin SureshMCHC33.9 g/dl Tzcost30.9-35.2The [facility] HospitalComment on above:Performed By: #### CBCMAN ####[facility] Dyfjwdhryj165[address] [place], [place] [address]Dr. Devin SureshMCV88.6 dUBmarfs96.0-99.0The [facility] HospitalComment on above: Performed By: #### CBCMAN ####[facility] Hlrbwnlpdl743157 [address] [place], [place] [address]Dr. Devin SureshMETAMYELOCYTE #0.1 103/ulNormalThe [facility] HospitalComment on above:Performed By: #### CBCMAN ####[facility] Tkyvgofzwt029057 [address] [place], [place] [address]Dr. Devin Suresh METAMYELOCYTE %2 %NormalThe [facility] HospitalComment on above:Performed By: #### CBCMAN ####[facility] Pdpplydbxd9144 [place] [address]Dr. Yilan ChangMONOM#0.05 103/ulCritically low0.30-0.80The [facility] HospitalComment on above:Performed By: #### CBCMAN ####[facility] Onkzwlzwxh9308 [place] [address]Dr. Yilan ChangMONOM%1.0 % Critically low1.7-12.0The [facility] HospitalComment on above:Performed By: #### CBCMAN ####[facility] Jirwutnevo5991 [place] [address]Dr. Yilan ChangMPV8.5 fLCritically low9.5-13.5The [facility] HospitalComment on above:Performed By: #### CBCMAN ####[facility] Tqdlwznpcl9544 [place] [address]Dr. Yilan ChangMYELOCYTE #NormalThe [facility] HospitalComment on above:Performed By: #### CBCMAN ####[facility] Lpfvupdefi1431 [place] [address]Dr. Yilan ChangMYELOCYTE % NormalThe [facility] HospitalComment on above:Performed By: #### CBCMAN ####[facility] Qphykhzyyk5466 [place] [address]Dr. Yilan ChangNRBCNormalThe [facility] HospitalComment on above:Performed By: #### CBCMAN ####[facility] Ksfcnfqesu6922 [place] [address]Dr. Yilan JfvtzXAE697 103/jpAwwvof485-764Dsh [facility] HospitalComment on above:Performed By: #### CBCMAN ####[facility] Zqjxqbjebw[address] [place], [place] [address]Dr. Yilan ChangPOIKILOCYTOSIS2+NormalThe [facility] HospitalComment on above:Performed By: #### CBCMAN ####[facility] Blwdutxmgb8303 [place] [address]Dr. Yilan ChangRBC3.33 106/ul Critically low4.20-5.40[facility]Com[facility] on above:Performed By: #### CBCMAN ####[facility] Owvarfauci9260 [place] [address]Dr. Devin SureshRDW13.3 %Kbjiof47.0-15.0The [facility] HospitalComc[facility] on above:Performed By: #### CBCMAN ####[facility] Oljhaqpnsv7637[address] [place], [place] [address]Dr. Devin SureshSEG #3.95 103/ulNormal1.40-6.50[facility]Comc[facility] on above:Performed By: #### CBCMAN ####[facility] Mgahhriepg704[address] [place], [place] [address]Dr. Devin SureshSEG % 79.0 %Critically high43.0-75.0The [facility] HospitalComc[facility] on above:Performed By: #### CBCMAN ####[facility] Vzjyzejtja1524[address] [place], [place] [address]Dr. Devin ChangWBC5.0 103/ulNormal4.0-11.0The [facility] HospitalComc[facility] on above:Performed By: #### CBCMAN ####[facility] Uxnjrfajts779257 [address] [place], [place] [address]Dr. Devin ChangECHOCARDIO M/2D COMPLETEon 76-28-0934ZIOAPCBQFJ M/2D [facility] OF CARE GLUCOSEon 56-42-1624Anzmriq [Mass/Vol]151 mg/dLCritically ftck01-650FtzUC Health on above:Performed By: #### POCGLUC ####[facility] Eftagwtfsf772457 [address] [place], [place] [address]Dr. Devin ChangGlucose [Mass/Vol]188 mg/dLCritically kybq19-167ArrMemorial Health System [facility] HospitalComcovenant medical center on above: Performed By: #### POCGLUC ####[facility] Fykpuepphf687357 [address] [place], [place] [address]Dr. Devin ChangGlucose [Mass/Vol]243 mg/dLCritically ixef23-233OqwMemorial Health System [facility] HospitalComcovenant medical center on above:Performed By: #### POCGLUC ####[facility] Atstonzkma2124 [place] [address]Dr. Yilan ChangGlucose [Mass/Vol]259 mg/dLCritically lvko52-737Are [facility] Comment on above:Performed By: #### POCGLUC ####[facility] Rtvbknfgvu2619 [place] [address]Dr. Yilan ChangPROF 14(COMP METB)on 20-78-9813Zwadzan [Mass/Vol]3.1 g/dLCritically low3.4-5.0The [facility] Comment on above:Performed By: #### CMP ####[facility] Ykbynmgkjg380457 [address] [place], [place] [address]Dr.Yilan ChangAlbumin/Globulin [Mass ratio] 1.1 {ratio}NormalThe [facility] HospitalComment on above:Performed By: #### CMP ####[facility] Moydtletww356[address] [place], [place] [address]Dr. Yilan ChangALP [Catalytic activity/Vol]86 U/SKmmpef54-933Mvv [facility] Comment on above:Performed By: #### CMP ####[facility] Jljopapkuv670657 [address] [place], [place] [address]Dr.Yilan ChangALT [Catalytic activity/Vol]12 U/LCritically cvx42-63Mle [facility] HospitalComment on above:Performed By: #### CMP ####[facility] Emjscmxmhn355557 [address] [place], [place] [address]Dr. Yilan ChangAnion gap [Moles/Vol]13.2 mmol/LNormalThe [facility] HospitalComment on above:Performed By: #### CMP ####[facility] Kwlxqydkjr545[address] [place], [place] [address]Dr.Yilan ChangAST [Catalytic activity/Vol]13 U/L Critically fdp03-36Jfh [facility] HospitalComment on above:Performed By: #### CMP ####[facility] Ffdkqswikm978[address] [place], [place] [address]Dr. Yilan ChangBilirubin [Mass/Vol]0.4 mg/dLNormal0.2-1.0The [facility] Comment on above:Performed By: #### CMP ####[facility] Kmjridusuv0419 [place] [address]Dr.Yilan ChangCalcium [Mass/Vol]8.0 mg/dL Critically low8.5-10.1The [facility] HospitalComment on above:Performed By: #### CMP ####[facility] Obuaphqoul2516[address] [place], [place] [address]Dr. Yilan ChangChloride [Moles/Vol]108 mmol/LCritically mmoz74-719Kse [facility] HospitalComment on above:Performed By: #### CMP ####[facility] Wnsogndlhs760357 [address] [place], [place] [address]Dr.Yilan ChangCO2 [Moles/Vol] 21.3 mmol/KMklujj39.0-32.0The [facility] HospitalComment on above:Performed By: #### CMP ####[facility] Uviqyafgjl0165[address] [place], [place] [address]Dr.Yilan ChangCreatinine [Mass/Vol]0.76 mg/dLNormal0.55-1.02The [facility] HospitalComment on above:Performed By: #### CMP ####[facility] Xxzkzeutls6935[address] [place], [place] [address]Dr.Yilan ChangEGFR-AF LEBANESE>60Normal>=60The [facility] HospitalComment on above:Performed By: #### CMP ####[facility] Hoidbuobnv449[address] [place], [place] [address]Dr. Yilan ChangEGFR-NON AF LEBANESE>60Normal>=60The [facility] HospitalComment on above:Performed By: #### CMP ####[facility] Dlbrrliceq5400[address] [place], [place] [address]Dr.Yilan ChangGlobulin (S) [Mass/Vol]2.8 g/dLNormalThe [facility] HospitalComment on above:Performed By: #### CMP ####[facility] Rbkocdbukb114[address] [place], [place] [address]Dr.Yilan ChangGlucose [Mass/Vol]235 mg/dLCritically ubto20-902Vqm [facility] HospitalComment on above: Performed By: #### CMP ####[facility] Yfbgbxxhnp4068 [place] [id number].Devin ChangPotassium [Moles/Vol]3.5 mmol/LNormal 3.5-5.1The [facility] HospitalComment on above:Performed By: #### CMP ####[facility] Cjymfrxvnh3526 [place] [address]Dr.Devin Suresh Protein [Mass/Vol]5.9 g/dLCritically low6.4-8.2The [facility] HospitalComment on above:Performed By: #### CMP ####[facility] Xvyridheig6026[address] [place], [place] [address]Dr.Devin ChangSodium [Moles/Vol]139 mmol/LNormal 136-145The [facility] HospitalComment on above:Performed By: #### CMP ####[facility] Xfuircstkl865[address] [place], [place] [address]Dr.Devin ChangUrea nitrogen [Mass/Vol]4.0 mg/dLCritically low7.0-18.0The [facility] HospitalComment on above:Performed By: #### CMP ####[facility] Dgwhfaujrd715[address] [place], [place] [address]Dr.Devin ChangUrea nitrogen/Creatinine [Mass ratio]5.3 mg/mgNormalThe [facility] HospitalComcovenant medical center on above:Performed By: #### CMP ####[facility] Ssuwaljass9[address] [place], [place] [address]Dr. Devin KerwinTROPONIN, HIGH SENSITIVITYon 45-49-8276DDDIMA8.5 pg/mLNormal4.0-51.3 The [facility] HospitalComcoven[facility] center on above:Result Comment: CUT-OFF POINTS HAVE BEEN ESTABLISHED BASED ON THE FOURTH UNIVERSAL DEFINITIONS OF MYOCARDIALINFARCTION. THE UPPER REFERENCE LIMIT (URL) OF TROPONIN, DEFINED THE 99TH PERCENTILE OFcT nI DISTRIBUTION IN A REFERENCE POPULATION, HAS BEEN CONFIRMED THE DECISION THRESHOLDFOR [place] DIAGNOSIS.Performed By: #### HSTROPN ####[facility] Ugoljsnghs[address] [place], [place] [address]Dr. Devin ChangHSTROP7.5 pg/mLNormal4.0-51.3The [facility]ers HospitalComment on above:Result Comment: CUT-OFF POINTS HAVE BEEN ESTABLISHED BASED ON THE FOURTH UNIVERSAL DEFINITIONS OF MY OCARDIALINFARCTION. THE UPPER REFERENCE LIMIT (URL) OF TROPONIN, DEFINED THE 99TH PERCENTILE OFcTnI DISTRIBUTION IN A REFERENCE POPULATION, HAS BEEN CONFIRMED THE DECISION THRESHOLDFOR [place] DIAGNOSIS.Performed By: #### HSTROPN ####[place] [facility] Lpmbufyuht189[address] [place], [place] [address]Dr. Yilan ChangHSTROP6.9 pg/mLNormal4.0-51.3The [facility]ers HospitalComment on above: Result Comment: CUT-OFF POINTS HAVE BEEN ESTABLISHED BASED ON THE FOURTH UNIVERSAL DEFINITIONS OF MYOCARDIALINFARCTION. THE UPPER REFERENCE LIMIT (URL) OF TROPONIN, DEFINED THE 99TH PERCENTILE OFcTnI DISTRIBUTION IN A REFERENCE POPULATION, HAS BEEN CONFIRMED THE DECISION THRESHOLDFOR [place] DIAGNOSIS. Performed By: #### HSTROPN ####[facility] Wbsxdrogmk497[address] [place], [place] [address]Dr. Tishlan ChangCBC AUTO DIFFon [id number] #0.0 103/ulNormal0.0-0.1The [facility] HospitalComment on above:Performed By: #### CBC ####[facility] Lajucibdlj813657 [address] [place], [place] [address]Dr. Tishlan ChangBasophils/100 WBC (Bld)0.4 %Normal0.2-2.0The [facility] HospitalComment on above:Performed By: #### CBC ####[facility] Xlwsmutslv83[address] [place], [place] [address]Dr.Yilan ChangEO #0.1 103/ulNormal0.0-0.7The [facility] on above:Performed By: #### CBC ####[facility] Upgrdzqyfg090457 [address] [place], [place] [address]Dr.Yilan ChangEosinophils/100 WBC (Bld)2.3 %Normal0.9-7.0The [facility] HospitalComment on above:Performed By: #### CBC ####[facility] Fafmhcvqap638357 [address] [place], [place] [address]Dr.Yilan ChangErythrocyte distribution width (RBC) [Ratio]13.8 %Normal 11.0-15.0The [facility] HospitalComment on above:Performed By: #### CBC ####[facility] Olcoxmphpt049557 [address] [place], [place] [address]Dr. Devin ChangHematocrit (Bld) [Volume fraction]29.6 %Critically low36.0-48.0The [facility] HospitalComment on above:Performed By: #### CBC ####[facility] Esmbihwfkw494657 [address] [place], [place] [address]Dr.Devin ChangHemoglobin (Bld) [Mass/Vol]10.0 g/dLCritically low12.0-16.0The [facility] HospitalComment on above:Performed By: #### CBC ####[facility] Kcamfqxwoe332257 [address] [place], [place] [address]Dr.Yilan ChangIG #0.02 10e3/ulNormal0.00-0.03The [facility] HospitalComment on above:Performed By: #### CBC ####[facility] Neqxrmtyup486[address] [place], [place] [address]Dr.Devin ChangIG %0.4 %Normal 0.0-0.5The [facility] HospitalComment on above:Performed By: #### CBC ####[facility] Ahqmiluqzh952557 [address] [place], [place] [address]Dr.Devin ChangLYMPH #2.4 103/ulNormal1.2-3.8The [facility] HospitalComment on above:Performed By: #### CBC ####[facility] Pbqwgwjzmg435357 [address] [place], [place] [address]Dr.Devin ChangLymphocytes/100 WBC (Bld)46.2 %Mehrmz40.5-60.0The [facility] HospitalComment on above:Performed By: #### CBC ####[facility] Upypofvzlh769957 [address] [place], [place] [address]Dr.Devin ChangMANUAL DIFF REQ NONormalThe [facility] HospitalComment on above:Performed By: #### CBC ####[facility] Kbnxojmgxz[address] [place] [address]Dr. Devin SureshH (RBC) [Entitic mass]30.7 liIutsgv83.7-34.0The [facility] Comment on above:Performed By: #### CBC ####[facility] Tkvfwctnrx698[address] [place], [place] [address]Dr.Devin SureshHC (RBC) [Mass/Vol]33.8 g/dL Rdjukr65.9-35.2The [facility] HospitalComment on above:Performed By: #### CBC ####[facility] Opscwcbopt807[address] [place], [place] [address]Dr. Devin SureshV (RBC) [Entitic vol]90.8 uTAjvyci42.0-99.0The [facility] Comment on above:Performed By: #### CBC ####[facility] Yrrvgbmamb380357 [address] [place], [place] [address]Dr.Tishemily SureshMONO #0.4 103/ulNormal0.3-0.8 The [facility] HospitalComment on above:Performed By: #### CBC ####[facility] Olqtbkytvp538[address] [place], [place] [address]Dr.Tishemily Suresh Monocytes/100 WBC (Bld)7.6 %Normal1.7-12.0The [facility] HospitalComment on above: Performed By: #### CBC ####[facility] Itnwdnizsf649257 [address] [place], [place] [address]Dr.Devin KerwinNEUT #2.2 103/ulNormal1.4-6.5The [facility] HospitalComment on above:Performed By: #### CBC ####[facility] Qjbjbndbas305457 [address] [place], [place] [address]Dr.Devin KerwinNeutrophils/100 WBC (Bld)43.1 %Znjtwt06.0-75.0The [facility] HospitalComment on above:Performed By: #### CBC ####[facility] Xonogdzxmt271657 [address] [place], [place] [address]Dr.Tishemily SureshPlatelet mean volume (Bld) [Entitic vol]8.7 fLCritically low 9.5-13.5The [facility] HospitalComment on above:Performed By: #### CBC ####[facility] Akjdqgdivl[address] [place] [address]Dr. Devin LrwidEJO816 103/rmLttrjb608-799Pdn [facility] HospitalComcovenant medical center on above: Performed By: #### CBC ####[facility] Uvvhawbxsi017057 [address] [place], [place] [address]Dr.Devin ChangRBC3.26 106/ulCritically low4.20-5.40The [facility] HospitalComment on above:Performed By: #### CBC ####[facility] Kxzjmwxtcn687657 [address] [place], [place] [address]Dr.Devin ChangWBC5.1 103/ul Normal4.0-11.0The [facility] HospitalComcovenant medical center on above:Performed By: #### CBC ####[facility] Ijwbftyfrs455[address] [place], [place] [address]Dr. Devin [facility] GLUCOSEon 85-11-2619Itcbnax [Mass/Vol]129 mg/dL Critically qpom58-649AapMemorial Health System Marietta Memorial HospitalComment on above:Performed By: #### POCGLUC ####[facility] Vulzmnqgfk432357 [address] [place], [place] [address]Dr. Devin ChangGlucose [Mass/Vol]157 mg/dLCritically wlfa72-774Mrh [facility] on above:Performed By: #### POCGLUC ####[facility] Xniluqxspn807[address] [place], [place] [address]Dr. Devin ChangGlucose [Mass/Vol]228 mg/dLCritically mabw20-293Ngg [facility] HospitalComment on above: Performed By: #### POCGLUC ####[facility] Zxqkltrmtu388[address] [place], [place] [address]Dr. Yilan ChangGlucose [Mass/Vol]327 mg/dLCritically jqfy54-590DfiMemorial Health System Marietta Memorial HospitalComcovenant medical center on above:Performed By: #### POCGLUC ####[facility] Jstbxcdsuu934257 [address] [place], [place] [address]Dr. Yilan ChangPROF 14(COMP METB)on 80-57-0388Snebbhg [Mass/Vol]2.9 g/dLCritically low3.4-5.0The [facility] HospitalComment on above:Performed By: #### CMP ####[facility] Gonftjkpgm8[address] [place] [address]Dr. Yilan ChangAlbumin/Globulin [Mass ratio]1.1 {ratio}NormalThe [facility] Comment on above:Performed By: #### CMP ####[facility] Htaltxnphe76[address] [place], [place] [address]Dr.Yilan ChangALP [Catalytic activity/Vol]85 U/RPhmydk36-981Dwr [facility] HospitalComment on above:Performed By: #### CMP ####[facility] Opnskhrxhw4440[address] [place], [place] [address]Dr. Yilan ChangALT [Catalytic activity/Vol]14 U/PUlrmci10-68Szr [facility] Comment on above:Performed By: #### CMP ####[facility] Vyevfvmzrj7325[address] [place], [place] [address]Dr.Yiemily ChangAnion gap [Moles/Vol]13.3 mmol/LNormalThe [facility] HospitalComment on above:Performed By: #### CMP ####[facility] Epobxgiajw468957 [address] [place], [place] [address]Dr. Yilan ChangAST [Catalytic activity/Vol]11 U/LCritically kis54-94Lvr [facility] HospitalComment on above:Performed By: #### CMP ####[facility] Hcfwhlrzur401[address] [place], [place] [address]Dr.Yilan ChangBilirubin [Mass/Vol]0.2 mg/dLNormal0.2-1.0The [facility] HospitalComment on above:Performed By: #### CMP ####[facility] Nwwmxdskix898[address] [place], [place] [address]Dr.Yilan ChangCalcium [Mass/Vol]7.5 mg/dLCritically low8.5-10.1The [facility] HospitalComment on above:Performed By: #### CMP ####[facility] Vnbjfytmnc900[address] [place], [place] [address]Dr.Yilan ChangChloride [Moles/Vol]109 mmol/LCritically lilw55-732Smy [facility] HospitalComment on above: Performed By: #### CMP ####[facility] Oixcjlzrxm640257 [address] [place], [place] [address]Dr.Yilan ChangCO2 [Moles/Vol]21.6 mmol/LNormal 21.0-32.0The [facility] HospitalComment on above:Performed By: #### CMP ####[facility] Vjllrwbiww615357 [address] [place], [place] [address]Dr. Devin ChangCreatinine [Mass/Vol]1.15 mg/dLCritically high0.55-1.02The [facility] HospitalComment on above:Performed By: #### CMP ####[facility] Xhqoqqfmrl371157 [address] [place], [place] [address]Dr.Tishlan ChangEGFR-AF LEBANESE>60Normal>=60The [facility] HospitalComment on above:Performed By: #### CMP ####[facility] Fyvwmbuewz8817[address] [place], [place] [address]Dr. Tishlan ChangEGFR-NON AF EWZMWQCK43 mL/min/1.36e0Sypcceywqf low>=60The [facility] HospitalComment on above:Performed By: #### CMP ####[facility] Sygnreufvv273357 [address] [place], [place] [address]Dr.Tishlan ChangGlobulin (S) [Mass/Vol]2.6 g/dLNormalThe [facility] HospitalComment on above:Performed By: #### CMP ####[facility] Ioslbguyqv451557 [address] [place], [place] [address]Dr.Tishlan ChangGlucose [Mass/Vol]268 mg/dLCritically ughb89-740Oxy [facility] HospitalComment on above:Performed By: #### CMP ####[facility] Pnegtkiqxz335557 [address] [place], [place] [address]Dr.Yilan ChangPotassium [Moles/Vol]3.9 mmol/LNormal3.5-5.1The [facility] HospitalComment on above: Performed By: #### CMP ####[facility] Cpqtlewwtm893057 [address] [place], [place] [address]Dr.Yilan ChangProtein [Mass/Vol]5.5 g/dLCritically low 6.4-8.2The [facility] HospitalComment on above:Performed By: #### CMP ####[facility] Wdrngqhnof551457 [address] [place], [place] [address]Dr.Devin Suresh Sodium [Moles/Vol]140 mmol/TIbziwg510-630Lvv [facility] HospitalComment on above: Performed By: #### CMP ####[facility] Gpizxbtjqz6413[address] [place], [place] [address]Dr.Yilan ChangUrea nitrogen [Mass/Vol]13.0 mg/dLNormal 7.0-18.0The [facility] HospitalComment on above:Performed By: #### CMP ####[facility] Eywwcduiwj412157 [address] [place], [place] [address]Dr. Tishlan ChangUrea nitrogen/Creatinine [Mass ratio]11.3 mg/mgNormalThe [facility] HospitalComment on above:Performed By: #### CMP ####[facility] Veqoefnvlf501[address] [place], [place] [address]Dr.Tishlan ChangCBC AUTO DIFFon 34-30-5360NIXD #0.0 103/ulNormal0.0-0.1The [facility] HospitalComment on above: Performed By: #### CBC ####[facility] Gthyjerlpz065357 [address] [place], [place] [address]Dr.Yilan ChangBasophils/100 WBC (Bld)0.6 %Normal 0.2-2.0The [facility] HospitalComment on above:Performed By: #### CBC ####[facility] Zycdrfldxi958657 [address] [place], [place] [address]Dr.Yilan ChangEO # 0.1 103/ulNormal0.0-0.7The [facility] HospitalComment on above:Performed By: #### CBC ####[facility] Ztfcfcqsch295757 [address] [place], [place] [address]Dr. Yilan ChangEosinophils/100 WBC (Bld)3.1 %Normal0.9-7.0The [facility] Comment on above:Performed By: #### CBC ####[facility] Sypfstoqff4711[address] [place], [place] [address]Dr.Devin ChangErythrocyte distribution width (RBC) [Ratio]13.6 %Gnhidk60.0-15.0The [facility] HospitalComment on above: Performed By: #### CBC ####[facility] Ehtecrrqjt986257 [address] [place], [place] [address]Dr.Devin ChangHematocrit (Bld) [Volume fraction]27.8 % Critically low36.0-48.0The [facility] HospitalComment on above:Performed By: #### CBC ####[facility] Ytdiksyrpk812657 [address] [place], [place] [address]Dr. Tishemily ChangHemoglobin (Bld) [Mass/Vol]9.6 g/dLCritically low12.0-16.0The [facility] HospitalComment on above:Performed By: #### CBC ####[facility] Cjvomhyzrq31985[address] [place], [place] [address]Dr.Yilan ChangIG #0.01 10e3/ulNormal0.00-0.03The [facility] HospitalComment on above:Performed By: #### CBC ####[facility] Xroveeayxe079[address] [place], [place] [address]Dr. Devin ChangIG %0.3 %Normal0.0-0.5The [facility] HospitalComment on above:Performed By: #### CBC ####[facility] Unwzhekzqm771457 [address] [place], [place] [address]Dr.Tishlan ChangLYMPH #1.5 103/ulNormal1.2-3.8The [facility] Comment on above:Performed By: #### CBC ####[facility] Cbkrejgcxd901[address] [place], [place] [address]Dr.Tishlan ChangLymphocytes/100 WBC (Bld)41.2 %Ixiqli26.5-60.0The [facility] HospitalComment on above:Performed By: #### CBC ####[facility] Spbmkmrkmq159057 [address] [place], [place] [address]Dr. Tishlan ChangMANUAL DIFF REQNONormalThe [facility] HospitalComment on above: Performed By: #### CBC ####[facility] Ridmtypzsa[address] [place] [address]Dr.Devin SureshH (RBC) [Entitic mass]31.0 pgNormal 26.7-34.0The [facility] HospitalComment on above:Performed By: #### CBC ####[facility] Csxbzrxpie6278 [place] [address]Dr. Devin KerwinHC (RBC) [Mass/Vol]34.5 g/gQFdrofv86.9-35.2The [facility] Comment on above:Performed By: #### CBC ####[facility] Fsoczmfygz908357 [address] [place], [place] [address]Dr.Tishemily SureshMCV (RBC) [Entitic vol]89.7 fL Nnekia19.0-99.0The [facility] HospitalComment on above:Performed By: #### CBC ####[facility] Jgngdrkfly530[address] [place], [place] [address]Dr. Tishemily SureshMONO #0.4 103/ulNormal0.3-0.8The [facility] HospitalComment on above: Performed By: #### CBC ####[facility] Mmqtlpewml703257 [address] [place], [place] [address]Dr.Tishemily SureshMonocytes/100 WBC (Bld)10.0 %Normal 1.7-12.0The [facility] HospitalComment on above:Performed By: #### CBC ####[facility] Jwqkqqwnme133257 [address] [place], [place] [address]Dr. Devin KerwinNEUT #1.6 103/ulNormal1.4-6.5The [facility] HospitalComment on above: Performed By: #### CBC ####[facility] Bejhepjsss446457 [address] [place], [place] [address]Dr.Tishemily SureshNeutrophils/100 WBC (Bld)44.8 %Normal 43.0-75.0The [facility] HospitalComment on above:Performed By: #### CBC ####[facility] Ixckzmbuph207157 [address] [place], [place] [address]Dr. Devin KerwinPlatelet mean volume (Bld) [Entitic vol]8.7 fLCritically low9.5-13.5 The [facility] HospitalComment on above:Performed By: #### CBC ####[facility] Qxubnyhpxe132157 [address] [place], [place] [address]Dr.Devin SureshPLT185 103/hdOueacf478-430Dpq [facility] HospitalComment on above:Performed By: #### CBC ####[facility] Klxjrjexnv43[address] [place], [place] [address]Dr. Devin SureshRBC3.10 106/ulCritically low4.20-5.40The [facility] HospitalComment on above:Performed By: #### CBC ####[facility] Idarjgtuqb737257 [address] [place], [place] [address]Dr.Devin SureshWBC3.6 103/ulCritically low4.0-11.0The [facility] HospitalComment on above:Performed By: #### CBC ####[facility] Inldovzcag427[address] [place], [place] [address]DrGonzalo Sun PANEL (PCR) on 13-46-7171Niyjfnorpd F 40/41Not detectedNormalNOT DETECTEDThe [facility] HospitalComment on above:Performed By: #### ASHLEYL ####[facility] Jffqhdoipv1727[address] [place], [place] [address]Dr. Devin SureshAstrovirusNot detectedNormalNOT DETECTEDThe [facility] HospitalComment on above:Performed By: #### ASHLEYL ####[facility] Iuopivulif038157 [address] [place], [place] [address]Dr. Devin Nice. Diff toxin A/BNot detectedNormalNOT DETECTEDThe [facility] HospitalComment on above:Performed By: #### BRENDAANEL ####[facility] Dtchlojwpj533[address] [place], [place] [address]Dr. Devin Washburnpylobacter Not detectedNormalNOT DETECTEDThe [facility] HospitalComment on above:Performed By: #### BRENDAANEL ####[facility] Zikstwvptv344[address] [place], [place] [address]Dr. Devin SureshCryptosporidiumNot detectedNormalNOT DETECTEDThe [facility] HospitalComment on above:Performed By: #### BRENDAANEL ####[facility] Fsytmxqxib02[address] [place] [address]Dr. Devin Suresh Cyclos. CayetanensisNot detectedNormalNOT DETECTEDThe [facility] HospitalComment on above:Performed By: #### BRENDAANEL ####[facility] Mykejafqls9433 [place] [address]Dr. Yilan ChangE. Coli S514Buc ApplicableNormal Not ApplicableThe [facility] HospitalComment on above:Performed By: #### GIPANEL ####[facility] Brfeceysoy5923 [place] [address]Dr. Yilan ChangE. histolyticaNot detectedNormalNOT DETECTEDThe [facility] Comment on above:Performed By: #### ASHLEYL ####[facility] Powanjkgsm990[address] [place], [place] [address]Dr. Yilan ChangEAECNot detectedNormalNOT DETECTEDThe [facility] HospitalComment on above:Performed By: #### ASHLEYL ####[facility] Ledflvkwnt5840[address] [place], [place] [address]Dr. Yilan ChangEIECNot detectedNormalNOT DETECTEDThe [facility] HospitalComment on above:Performed By: #### ASHLEYL ####[facility] Acrfispfzq0715[address] [place], [place] [address]Dr. Yilan ChangEPECNot detectedNormalNOT DETECTEDThe [facility] HospitalComment on above:Performed By: #### ASHLEYL ####[facility] Jczgnplytt466[address] [place], [place] [address]Dr. Yilan ChangETEC Not detectedNormalNOT DETECTEDThe [facility] HospitalComment on above:Performed By: #### BRENDAANEL ####[facility] Ghcstvmwwi0570 [place] [address]Dr. Devin SureshG. LambliaNot detectedNormalNOT DETECTEDThe [facility] HospitalComment on above:Performed By: #### BRENDAANEL ####[facility] Vygjvuqpmp294[address] [place], [place] [address]Dr. Devin ChangGIPANEL CONTROLSPASSEDNormalThe [facility] HospitalComment on above:Performed By: #### ANNE ####[facility] Xnwpbnidcl0865 [place] [id number]. Devin HuangL EVIN HEADERGI PANEL [facility] Comment on above:Performed By: #### ANNE ####[facility] Hfsyybkwjf6611 [place] [id number]. Devin HuangLHD ECOLIGI PANEL DIARRHEAGENIC E.COLI / SHIGELLAAdams County HospitalComment on above: Performed By: #### ANNE ####[facility] Upubbaonmb922657 [address] [place], [place] [address]Dr. Devin HuangLHD INFOSEE BELOWAdams County HospitalComcovenant medical center on above:Result Comment: EAEC- Enteroaggregative E. Coli EPEC- Enteropathogenic E. Coli ETEC- Enterotoxigenic E. Coli lt/st STEC- Shigella-like toxin-producing E. Coli stx1/stx2 EIEC- Shigella/Enteroinvasive E. ColiPerformed By: #### ANNE ####[facility] Yhstyopxur884[address] [place], [place] [address]Dr. Devin HuangLHD PARASITESGI PANEL PARASITESAdams County HospitalComment on above:Performed By: #### ANNE ####[facility] Eibrqtazno26[address] [place] [id number]. Devin HuangLHD VIRUS GI PANEL VIRUSESAdams County HospitalComment on above:Performed By: #### ANNE ####[facility] Saptvalyzi9[address] [place], [place] [address]Dr. Devin ChangNorovirus GI/GIINot detectedNormalNOT DETECTEDThe [facility] HospitalComcovenant medical center on above:Performed By: #### ANNE ####[facility] Fjrbtpdfhq077657 [address] [place], [place] [address]Dr. Devin Fleming. ShigelloidesNot detectedNormalNOT DETECTEDThe [facility] HospitalComcovenant medical center on above: Performed By: #### ANNE ####[facility] Azabrehhjv7752 [place] [address]Dr. Devin ChangRotavirus ANot detectedNormalNOT DETECTEDThe [facility] HospitalComment on above:Performed By: #### GIPANEL ####[facility] Bynmobejhc040[address] [place], [place] [address]Dr. Yilan ChangSalmonellaNot detectedNormalNOT DETECTEDThe [facility] HospitalComment on above:Performed By: #### GIPANEL ####[facility] Fpppyvgqcw963657 [address] [place], [place] [address]Dr. Tishlan ChangSapovirusNot detectedNormalNOT DETECTEDThe [facility] HospitalComment on above:Performed By: #### GIPANEL ####[facility] Tlhxoztkql724157 [address] [place], [place] [address]Dr. Devin ChangSTECNot detectedNormalNOT DETECTEDThe [facility] HospitalComcovenant medical center on above:Performed By: #### GIPANEL ####[facility] Afniblkxsl658857 [address] [place], [place] [address]Dr. Devin ChangVibrioNot detectedNormalNOT DETECTEDThe [facility] HospitalComment on above:Performed By: #### GIPANEL ####[facility] Zrtioejmoa0718[address] [place], [place] [address]Dr. Devin Suresh Vibrio CholeraNot detectedNormalNOT DETECTEDThe [facility] HospitalComcovenant medical center on above:Performed By: #### GIPANEL ####[facility] Vzhdiyvycb2415[address] [place], [place] [address]Dr. Devin SureshY. EnterocoliticaNot detectedNormalNOT DETECTEDThe [facility] HospitalComcovenant medical center on above:Performed By: #### GIPANEL ####[facility] Oktkrwvlfq257[address] [place], [place] [address]Dr. Devin SureshPOINT UNIV[facility] GLUCOSEon 44-31-1021Hudnfuw [Mass/Vol]199 mg/dL Critically jbjm93-934JqmMemorial Health System Marietta Memorial HospitalComment on above:Performed By: #### POCGLUC ####[facility] Siywyrixrw4224[address] [place], [place] [address]Dr. Devin ChangGlucose [Mass/Vol]193 mg/dLCritically gnya69-007Xft [facility] HospitalComment on above:Performed By: #### POCGLUC ####[facility] Pwpanhowyp084257 [address] [place], [place] [address]Dr. Yilan ChangGlucose [Mass/Vol]276 mg/dLCritically vinb14-619Lab [facility] HospitalComment on above: Performed By: #### POCGLUC ####[facility] Ndoqdtranb2520[address] [place], [place] [address]Dr. Yilan ChangPROF 14(COMP METB)on 04-30-0021Wiutawa [Mass/Vol]2.8 g/dLCritically low3.4-5.0The [facility] HospitalComment on above: Performed By: #### CMP ####[facility] Ppeaffkcsz1769[address] [place], [place] [address]Dr.Yilan ChangAlbumin/Globulin [Mass ratio]1.1 {ratio} NormalThe [facility] HospitalComment on above:Performed By: #### CMP ####[facility] Hribxuzofe24[address] [place], [place] [address]Dr.Yilan ChangALP [Catalytic activity/Vol]85 U/VYdcjhd69-937Eid [facility] HospitalComment on above: Performed By: #### CMP ####[facility] Nhaefqpzml5669[address] [place], [place] [address]Dr.Yilan ChangALT [Catalytic activity/Vol]13 U/L Critically znj38-32Pvo [facility] HospitalComment on above:Performed By: #### CMP ####[facility] Bakutosdqu[address] [place], [place] [address]Dr. Yilan ChangAnion gap [Moles/Vol]10.2 mmol/LNormalThe [facility] HospitalComment on above:Performed By: #### CMP ####[facility] Qmuwexpkdq875[address] [place], [place] [address]Dr.Yilan ChangAST [Catalytic activity/Vol]12 U/L Critically utk33-59Lch [facility] HospitalComment on above:Performed By: #### CMP ####[facility] Vzyxoaklgq588[address] [place], [place] [address]Dr. Yilan ChangBilirubin [Mass/Vol]0.3 mg/dLNormal0.2-1.0The [facility] Comment on above:Performed By: #### CMP ####[facility] Csinzwowhb[address] [place] [address]Dr.Yilan ChangCalcium [Mass/Vol]7.4 mg/dL Critically low8.5-10.1The [facility] HospitalComment on above:Performed By: #### CMP ####[facility] Myrclwnbtf8088[address] [place], [place] [address]Dr. Yilan ChangChloride [Moles/Vol]107 mmol/HTpsvmo23-311Sme [facility] Comment on above:Performed By: #### CMP ####[facility] Onbmbfaecp308357 [address] [place], [place] [address]Dr.Yilan ChangCO2 [Moles/Vol]23.4 mmol/L Bkppwl83.0-32.0The [facility] HospitalComment on above:Performed By: #### CMP ####[facility] Qkpyalxnei10[address] [place], [place] [address]Dr. Yilan ChangCreatinine [Mass/Vol]1.23 mg/dLCritically high0.55-1.02The [facility] HospitalComment on above:Performed By: #### CMP ####[facility] Qribyqjyxi4533[address] [place], [place] [address]Dr.Yilan ChangEGFR-AF DJXZJELE18 mL/min/1.75k4Ubhslkphts low>=60The [facility] HospitalComment on above: Performed By: #### CMP ####[facility] Pnemfvjzzr677257 [address] [place], [place] [address]Dr.Yilan ChangEGFR-NON AF TBBNRPMU23 mL/min/1.73m2 Critically low>=60The [facility] HospitalComment on above:Performed By: #### CMP ####[facility] Umhudfrbov415[address] [place], [place] [address]Dr. Yilan ChangGlobulin (S) [Mass/Vol]2.5 g/dLNormalThe [facility] HospitalComment on above:Performed By: #### CMP ####[facility] Trstvxjxjq624[address] [place], [place] [address]Dr.Yilan ChangGlucose [Mass/Vol]284 mg/dLCritically npbs06-808Lng [facility] HospitalComment on above:Performed By: #### CMP ####[facility] Ihzxdjonxv0639[address] [place], [place] [address]Dr. Devin ChangPotassium [Moles/Vol]3.6 mmol/LNormal3.5-5.1The [facility] Comment on above:Performed By: #### CMP ####[facility] Qgfzmcrgde487157 [address] [place], [place] [address]Dr.Yilan ChangProtein [Mass/Vol]5.3 g/dL Critically low6.4-8.2The [facility] HospitalComment on above:Performed By: #### CMP ####[facility] Tooqecrhua531857 [address] [place], [place] [address]Dr. Yilan ChangSodium [Moles/Vol]137 mmol/CYqalos727-904Hiu [facility] HospitalComment on above:Performed By: #### CMP ####[facility] Uubfxcntcf956357 [address] [place], [place] [address]Dr.Tishlan ChangUrea nitrogen [Mass/Vol]14.0 mg/dLNormal 7.0-18.0The [facility] HospitalComment on above:Performed By: #### CMP ####[facility] Ujfaxhdcjh67225[address] [place], [place] [address]Dr. Tishlan ChangUrea nitrogen/Creatinine [Mass ratio]11.4 mg/mgNormalThe [facility] HospitalComment on above:Performed By: #### CMP ####[facility] Gujrgdcpmd287157 [address] [place], [place] [address]Dr.Devin ChangBNPon 65-75-0343Lwayyvofljj peptide B (Bld) [Mass/Vol]84.0 pg/mLNormal<=450.0The [facility] HospitalComment on above:Performed By: #### CMADM, CMP, BNP, CRP ####[facility] Uezxcbwqrk9820[address] [place], [place] [address]Dr. Tishemily ChangCARDIAC LAURA ADMITon 57-69-9026ZP [Catalytic activity/Vol]46 U/L Eoikfq08-696Tky [facility] HospitalComment on above:Performed By: #### CMADM, CMP, BNP, CRP ####[facility] Itmgyhabua[address] [place] [address]Dr. Devin SureshCK.MB [Mass/Vol]ng/mLNormal<=3.60The [facility] Comment on above:Performed By: #### CMADM, CMP, BNP, CRP ####[facility] Uraayrlcwl91975[address] [place], [place] [address]Dr. Devin SureshHSTROP6.5 pg/mLNormal4.0-51.3The [facility] HospitalComment on above:Result Comment: CUT-OFF POINTS HAVE BEEN ESTABLISHED BASED ON THE FOURTH UNIVERSAL DEFINITIONS OF MY OCARDIALINFARCTION. THE UPPER REFERENCE LIMIT (URL) OF TROPONIN, DEFINED THE 99TH PERCENTILE OFcTnI DISTRIBUTION IN A REFERENCE POPULATION, HAS BEEN CONFIRMED THE DECISION THRESHOLDFOR [place] DIAGNOSIS.Performed By: #### CMADM, CMP, BNP, CRP ####[facility] Fkwnvtirbb454157 [address] [place], [place] [address]Dr. Devin SureshMYO75 ng/mLNormal9-82The [facility] HospitalComment on above:Performed By: #### CMADM, CMP, BNP, CRP ####[facility] Dqtudfyljz784057 [address] [place], [place] [address]Dr. Devin SureshCBC AUTO DIFF on 75-74-4239WFOT #0.0 103/ulNormal0.0-0.1The [facility] HospitalComment on above: Performed By: #### CBC ####[facility] Usiaxaczjo543[address] [place], [place] [address]Dr.Devin ChangBasophils/100 WBC (Bld)0.4 %Normal 0.2-2.0The [facility] HospitalComment on above:Performed By: #### CBC ####[facility] Thsugspoat597[address] [place], [place] [address]Dr.Devin ChangEO # 0.1 103/ulNormal0.0-0.7The [facility] HospitalComment on above:Performed By: #### CBC ####[facility] Ueplgvxrcj658257 [address] [place], [place] [address]Dr. Devin ChangEosinophils/100 WBC (Bld)1.4 %Normal0.9-7.0The [facility] Comment on above:Performed By: #### CBC ####[facility] Weekuezrzw956257 [address] [place], [place] [address]Dr.Devin ChangErythrocyte distribution width (RBC) [Ratio]13.3 %Ryclkt43.0-15.0The [facility] HospitalComment on above: Performed By: #### CBC ####[facility] Dquyvlbwqm408657 [address] [place], [place] [address]Dr.Devin ChangHematocrit (Bld) [Volume fraction]33.4 % Critically low36.0-48.0The [facility] HospitalComment on above:Performed By: #### CBC ####[facility] Vanysdfddv036[address] [place], [place] [address]Dr. Devin ChangHemoglobin (Bld) [Mass/Vol]11.6 g/dLCritically low12.0-16.0The [facility] HospitalComment on above:Performed By: #### CBC ####[facility] Zvkptklzsv133457 [address] [place], [place] [address]Dr.Yilan ChangIG #0.01 10e3/ulNormal0.00-0.03The [facility] HospitalComment on above:Performed By: #### CBC ####[facility] Fjtjdqmnss067257 [address] [place], [place] [address]Dr. Yilan ChangIG %0.2 %Normal0.0-0.5The [facility] HospitalComment on above:Performed By: #### CBC ####[facility] Mmhtsmiayy464257 [address] [place], [place] [address]Dr.Yilan ChangLYMPH #1.3 103/ulNormal1.2-3.8The [facility] Comment on above:Performed By: #### CBC ####[facility] Xwcsmawjce739357 [address] [place], [place] [address]Dr.Yilan ChangLymphocytes/100 WBC (Bld)24.5 %Jgkmfq44.5-60.0The [facility] HospitalComment on above:Performed By: #### CBC ####[facility] Xcsyczwzop[address] [place] [address]Dr. Devin ChangMANUAL DIFF REQNONormalThe [facility] HospitalComment on above: Performed By: #### CBC ####[facility] Dixbanwvat318157 [address] [place], [place] [address]Dr.Devin SureshH (RBC) [Entitic mass]30.5 pgNormal 26.7-34.0The [facility] HospitalComment on above:Performed By: #### CBC ####[facility] Qocyxsschw454857 [address] [place], [place] [address]Dr. Devin SureshHC (RBC) [Mass/Vol]34.7 g/gBPubrhi30.9-35.2The [facility] Comment on above:Performed By: #### CBC ####[facility] Bgopebrvob153257 [address] [place], [place] [address]Dr.Devin SureshV (RBC) [Entitic vol]87.9 fL Xrstwf28.0-99.0The [facility] HospitalComment on above:Performed By: #### CBC ####[facility] Wfkckphenj199957 [address] [place], [place] [address]Dr. Devin SureshMONO #0.4 103/ulNormal0.3-0.8The [facility] HospitalComment on above: Performed By: #### CBC ####[facility] Xtpzieyrnr781057 [address] [place], [place] [address]Dr.Devin ChangMonocytes/100 WBC (Bld)8.4 %Normal 1.7-12.0The [facility] HospitalComment on above:Performed By: #### CBC ####[facility] Biunwcfxng132757 [address] [place], [place] [address]Dr. Devin ChangNEUT #3.4 103/ulNormal1.4-6.5The [facility] HospitalComment on above: Performed By: #### CBC ####[facility] Zbghxxyukl812[address] [place], [place] [address]Dr.Devin ChangNeutrophils/100 WBC (Bld)65.1 %Normal 43.0-75.0The [facility] HospitalComment on above:Performed By: #### CBC ####[facility] Kgvzrvkiiu79[address] [place] [address]Dr. Tishlan KerwinPlatelet mean volume (Bld) [Entitic vol]8.8 fLCritically low9.5-13.5 The [facility] HospitalComment on above:Performed By: #### CBC ####[facility] Rgcaqiouos365[address] [place], [place] [address]Dr.Yilan SjbhcTVK344 103/geIwdpgk328-693Nau [facility] HospitalComment on above:Performed By: #### CBC ####[facility] Tvyfhmbpku932[address] [place], [place] [address]Dr. Yilan ChangRBC3.80 106/ulCritically low4.20-5.40The [facility] HospitalComment on above:Performed By: #### CBC ####[facility] Jxycqotedh876[address] [place], [place] [address]Dr.Devin ChangWBC5.1 103/ulNormal4.0-11.0The [facility] HospitalComment on above:Performed By: #### CBC ####[facility] Peqqkzbthu0917[address] [place], [place] [address]Dr.Devin ChangCRPon 96-58-1640NFT6.4 mg/dLCritically high<=1.0The [facility] Hospitalment on above: Performed By: #### CMADM, CMP, BNP, CRP ####[facility] Wedytvrpzc592557 [address] [place], [place] [address]Dr. Devin SureshCULTURE BLOODon 08-02-2022 Microscopic examination of blood, cultureCulture Observations: NO GROWTH AT 5 DAYS.NormalThe [facility] HospitalComment on above:Performed By: #### BLDCX2 ####[facility] Lpjrizplcf5528[address] [place], [place] [address]Dr. Devin SureshMicroscopic examination of blood, cultureCulture Observations: NO GROWTH AT 5 DAYS.NormalThe [facility] HospitalComment on above:Performed By: #### BLDCX1 ####[facility] Heopppacel462[address] [place], [place] [address]Dr. Yilan ChangCULTURE URINEon 10-23-7978SOPVLJP URINECulture Observations: LIGHT GROWTH OF MIXED GENITAL ERIC. NO POTENTIAL PATHOGENS SEEN.NormalThe [facility] HospitalComment on above:Performed By: #### URCX ####[facility] Agswzahvnq[address] [place], [place] [address]Eb. Devin ChangCovid-19 PCR (CVDTB)on 26-64-7709BXTK-CoV-2 (COVID-19) RNA EBONIE+probe Ql (Unsp spec)Not detectedNormalNOT DETECTEDThe [facility] HospitalComment on above:Result Comment: When diagnostic testing is [...] for this test is supported by the Hand Ironer of Health and Human Service's declaration that [...] no longer be used).Performed By: #### CVDTBH ####[facility] Ujzvaxbvhn5537 [place], [place] [address]Eu. Yilan ChangER URINE PROFILEon 45-05-4535Yxqwjmnjn Ql (U)NegativeNormal NEGATIVEThe [facility] HospitalComment on above:Performed By: #### REAGAN NEWSOMERO ####[facility] Kbjeddvzdy9182 [place], [place]Dr. Yilan ChangClarity (U)CLEARNormalCLEARThe [facility] HospitalComment on above: Performed By: #### MERCEDEZ UMICRO ####[facility] Hpjxlmpibp1914 [place], [place]Dr. Yilan ChangColor (U)LT. YELLOWNormalYELLOWWhite Hospital HospitalComment on above:Performed By: #### REAGAN NEWSOMERO ####[facility] Mvvqfzuqhh397[address] [place], [place] [address]Dr. Devin Dodson A micrscopic examination will be performed if indicated.NormalThe [facility] HospitalComment on above:Performed By: #### MERCEDEZ UMICRO ####[facility] Capjonevmd7434[address] [place], [place] [address]Dr. Yilan ChangGlucose Ql (U) >1000AbnormalNEGATIVEThe [facility] HospitalComment on above:Performed By: #### MERCEDEZ UMICRO ####[facility] Guiibhnmnu586[address] [place], [place] [address]Dr. Yilan ChangHemoglobin Ql (U)TRACE-LYSEDAbnormalNEGATIVEWhite Hospital HospitalComment on above:Performed By: #### GEORGE NEWSOMEICRO ####[facility] Egwfmdjtec[address] [place], [place] [address]r. Yilan ChangKetones Ql (U) NegativeNormalNEGATIVEWhite Hospital HospitalComment on above:Performed By: #### GEORGE NEWSOMEICRO ####[facility] Sliedualzx179[address] [place], [place] [address]Dr. Yilan ChangLEUKOCYTESNegativeNormalNEGATIVEWhite Hospital HospitalComment on above:Performed By: #### GEORGE NEWSOMEICRO ####[facility] Skffxxsouh5312[address] [place], [place] [address]Dr. Yilan ChangNitrite Ql (U)NegativeNormal NEGATIVEWhite Hospital HospitalComment on above:Performed By: #### MERCEDEZ UMICRO ####[facility] Bjhvucbajn729[address] [place], [place] [address]Dr. Yilan ChangpH (U)6.0 [pH]Normal5-9[facility] HospitalComment on above: Performed By: #### MERCEDEZ UMICRO ####[facility] Kliqwjtbzh618[address] [place], [place] [address]Dr. Yilan ChangSPEC GRAVITY1.438Uuftby6.005-<=1.025The [facility] HospitalComment on above:Performed By: #### REAGAN NEWSOMERO ####[facility] Rplrhlpfhh4584 [address] Yilan ChangUA PROTEINNegativeNormalNEGATIVE/ TRACEThe [facility] HospitalComment on above: Performed By: #### REAGAN NEWSOMERO ####[facility] Uwdrlxpnsw7014 [address] Devin SureshUR MICRO INDINDICATEDNormalThe [facility] HospitalComment on above:Performed By: #### REAGAN NEWSOMERO ####[facility] Kheiovgvuk[address] [place], [place] [address]r. Devin SureshUrobilinogen Qn (U)0.2 {Sheyla'U}/dLNormal0.2 - 1.0The [facility] HospitalComment on above: Performed By: #### REAGAN NEWSOMERO ####[facility] Sjxapaizel[address] [place], [place] [address]r. Devin ChangLACTATE/LACTIC ACIDon 76-10-4892Uhuxqjg [Moles/Vol]1.2 mmol/LNormal0.4-2.0[facility] HospitalComment on above: Performed By: #### LACT ####[facility] Dupwxvgsrs84225[address] [place], [place] [address]Dr. Devin ChangLactate [Moles/Vol]3.1 mmol/LCritically high0.4-2.0The [facility] HospitalComment on above:Performed By: #### LACT ####[facility] Acqojqmonn279[address] [place], [place] [address]Dr. Devin SureshPOINT OF CARE GLUCOSEon 04-07-6670Kscfxhu [Mass/Vol]293 mg/dL Critically xxin25-615PysMemorial Health System Marietta Memorial HospitalComment on above:Performed By: #### POCGLUC ####[facility] Hexpwsbyjf6636[address] [place], [place] [address]Dr. Devin ChangPOCGLUC>600Critically qlrq46-176Ngy [facility] HospitalComment on above:Result Comment: Lab Draw OrderedPerformed By: #### POCGLUC ####[facility] Zmdvvfhriv[address] [place] [address]Dr. Yilan ChangPROF 14(COMP METB)on 23-55-0340Ltfltld [Mass/Vol]3.6 g/dLNormal 3.4-5.0The [facility] HospitalComment on above:Performed By: #### CMADM, CMP, BNP, CRP ####[facility] Dcqqphkbue32[address] [place] [address]Dr. Yilan ChangAlbumin/Globulin [Mass ratio]1.2 {ratio}NormalThe [facility] HospitalComment on above:Performed By: #### CMADM, CMP, BNP, CRP ####[facility] Cbypakhwjl64[address] [place] [address]Dr. Yilan ChangALP [Catalytic activity/Vol]113 U/VZfvjng09-522Mxp [facility] HospitalComment on above:Performed By: #### CMADM, CMP, BNP, CRP ####[facility] Vlneceyjsm[address] [place], [place] [address]Dr. Yilan ChangALT [Catalytic activity/Vol]12 U/LCritically alg90-00Igg [facility] HospitalComment on above: Performed By: #### CMADM, CMP, BNP, CRP ####[facility] Nmmcukkijp58[address] [place] [address]Dr. Yilan ChangAnion gap [Moles/Vol]15.4 mmol/LNormalThe [facility] HospitalComment on above:Performed By: #### CMADM, CMP, BNP, CRP ####[facility] Lpnsugcrgm79[address] [place] [address]Dr. Yilan ChangAST [Catalytic activity/Vol]13 U/LCritically dpe90-08Qnw [facility] HospitalComment on above:Performed By: #### CMADM, CMP, BNP, CRP ####[facility] Tfhvntpxat6[address] [place] [address]Dr. Yilan ChangBilirubin [Mass/Vol]0.5 mg/dLNormal0.2-1.0The [facility] Comment on above:Performed By: #### CMADM, CMP, BNP, CRP ####[facility] Qeosmecwpg7680 [place] [address]Dr. Yilan ChangCalcium [Mass/Vol]8.4 mg/dLCritically low8.5-10.1The [facility] HospitalComment on above: Performed By: #### CMADM, CMP, BNP, CRP ####[facility] Sbkllyhenl7[address] [place] [address]Dr. Yilan ChangChloride [Moles/Vol]96 mmol/L Critically xwd78-618Nzf [facility] HospitalComment on above:Performed By: #### CMADM, CMP, BNP, CRP ####[facility] Sbqglywcjw8[address] [place], [place] [address]Dr. Yilan ChangCO2 [Moles/Vol]21.8 mmol/LNormal 21.0-32.0The [facility] HospitalComment on above:Performed By: #### CMADM, CMP, BNP, CRP ####[facility] Lkpezfmetz14[address] [place], [place] [address]Dr. Yilan ChangCreatinine [Mass/Vol]1.54 mg/dLCritically high0.55-1.02The [facility] Hospitalment on above:Performed By: #### CMADM, CMP, BNP, CRP ####[facility] Unnvaghsxi39[address] [place] [address]Dr. Yilan ChangEGFR-AF JZEEBAFY33 mL/min/1.67h4Zedlecvrsc low>=60The [facility] Hospitalment on above:Performed By: #### CMADM, CMP, BNP, CRP ####[facility] Ujfcvoxwsu5060 [place] [address]Dr. Yilan ChangEGFR- NON AF GTTSQMPQ32 mL/min/1.18m9Weilwslusk low>=60The [facility] Hospitalment on above:Performed By: #### CMADM, CMP, BNP, CRP ####[facility] Qsdogmrtfm1213[address] [place], [place] [address]Dr. Yilan ChangGlobulin (S) [Mass/Vol]3.1 g/dLNormalThe [facility] HospitalComment on above:Performed By: #### CMADM, CMP, BNP, CRP ####[facility] Ohpeyzqptx050[address] [place] [address]Dr. Yilan ChangGlucose [Mass/Vol]562 mg/dLCritically dvir95-539Ske [facility] HospitalComcovenant [facility] on above:Performed By: #### CMADM, CMP, BNP, CRP ####[facility] Epbutmsqpf2810 [place] [address]Dr. Yilan ChangPotassium [Moles/Vol]4.2 mmol/LNormal3.5-5.1The [facility] HospitalComcovenant medical center on above:Performed By: #### CMADM, CMP, BNP, CRP ####[facility] Afqlgkdfgm324[address] [place], [place] [address]Dr. Yilan Suresh Protein [Mass/Vol]6.7 g/dLNormal6.4-8.2The [facility] HospitalComment on above: Performed By: #### CMADM, CMP, BNP, CRP ####[facility] Hvjhfllbpl[address] [place], [place] [address]Dr. Yilan ChangSodium [Moles/Vol]129 mmol/L Critically vat131-959Jkm [facility] on above:Performed By: #### CMADM, CMP, BNP, CRP ####[facility] Jnjbbbprnx2886 [place] [address]Dr. Yilan ChangUrea nitrogen [Mass/Vol]18.0 mg/dL Normal7.0-18.0The [facility] HospitalComcovenant medical center on above:Performed By: #### CMADM, CMP, BNP, CRP ####[facility] Ouvfoltsgz[address] [place], [place] [address]Dr. Yilan ChangUrea nitrogen/Creatinine [Mass ratio]11.7 mg/mgNormal The [facility] HospitalComment on above:Performed By: #### CMADM, CMP, BNP, CRP ####[facility] Zclgevlwcc266[address] [place], [place] [address]Dr. Yilan ChangPROTIMEon 52-99-5712IYL Coag (PPP) [Relative time]0.96 {INR}NormalThe [facility] HospitalComment on above:Performed By: #### PT, PTT ####[facility] Cdygdnlafi5913[address] [place], [place] [address]Dr. Devin SureshINR GUIDELINESSEE [facility] on above:Result Comment: DESIRED INR: 2.0 - 3.0 CONDITIONS NOT LISTED BELOW 2.5 - 3.5 FOR PROSTHETIC HEART VALVE REPLACEMENT 2.5 - 3.5 RECURRENT THROMBOSISPerformed By: #### PT, PTT ####[facility] Izmxmuaujl186[address] [place], [place] [address]Dr. Devin SureshPT Coag (PPP) [Time]10.2 sNormal9.0-11.6The [facility] on above:Performed By: #### PT, PTT ####[facility] Rhjlbfxpww843757 [address] [place], [place] [address]Dr. Devin SureshPTTon 87-90-8679oGTY Coag (Bld) [Time]26.4 hTpgarj24.3-36.2The [facility] on above:Performed By: #### PT, PTT ####[facility] Qupgjjnlsa435[address] [place], [place] [address]Dr. Devin SureshSED RATE WESTERGRENon 78-67-0609RGQ RATE22 mm/hrCritically high<=20The [facility] on above:Performed By: #### SEDR ####[facility] Qwbfitxwdx88[address] [place], [place] [address]Dr. Devin SureshURINE MICROSCOPIC ONLYon 73-85-5591GEPNFXIVGHSRUDjziexhcTXXN SEENMemorial Health System [facility] HospitalComcovenant medical center on above:Performed By: #### GEORGE NEWSOMEICRO ####[facility] Ktjaqlrjml[address] [place], [place] [address]Dr. Devin Suresh Bacteria identified Cx Nom (U)INDICATEDNoMary Rutan HospitalComcovenant medical center on above:Performed By: #### MERCEDEZ UMICRO ####[facility] Ubgjssexni76[address] [place] [address]Dr. Devin SureshCASTNONE SEENNormalNONE SEENMemorial Health System Marietta Memorial HospitalComcovenant medical center on above:Performed By: #### MERCEDEZ UMICRO ####[facility] Pqvpoyvvow13[address] [place] [id number]. Devin Suresh Crystals LM Nom (Urine sed)NONE SEENNormalNONE SEENMemorial Health System Marietta Memorial HospitalComment on above:Performed By: #### MERCEDEZ UMICRO ####[facility] Qwnhgswmwe1092 [place] [id number]. Devin ChangEpithelial cells LM Ql (Urine sed)RARENormalNONE SEEN /RAREThe [facility] HospitalComment on above:Performed By: #### MERCEDEZ UMICRO ####[facility] Shbchclvek15[address] [place] [id number]. Devin ChangMUCOUSNONE SEENNormalNONE SEENMemorial Health System [facility] HospitalComcovenant medical center on above:Performed By: #### MERCEDEZ UMICRO ####[facility] Evlhaosfac44[address] [place] [address]Dr. Devin ChangRBC0-2 Normal0-2The [facility] HospitalComcovenant medical center on above:Performed By: #### MERCEDEZ UMICRO ####[facility] Ejyvreqbvx3292 [place] [address]Dr. Devin ChangWBCNONE SEENNormalNONE SEENMemorial Health System [facility] HospitalComcovenant medical center on above: Performed By: #### MERCEDEZ UMICRO ####[facility] Znzhtfrgye5447 [place] [phone]. Devin ChangYEASTPRESENTAbnormalNONE SEENMemorial Health System [facility] HospitalComcovenant medical center on above:Performed By: #### MERCEDEZ UMICRO ####[facility] Rqqeolwqwe4232 [place] [phone]. Devin ChangXR CHEST 1 Von [id number] CHEST 1 VNormalMemorial Health System Marietta Memorial HospitalXR FOOT LT MIN 3 VIEWSon 66-85-7284CF FOOT LT MIN [address] Anne HospitalBLOOD CULTURE ID PANELon 07-30-2022. baumanniiNot detectedNormalNOT DETECTEDThe [facility] HospitalComcovenant medical center on above:Performed By: #### BCID2 ####[facility] Zijbzovolo[address] [place] [id number]. Yiemily ChangBacteriodes fragilisNot detectedNormalNOT DETECTEDThe [facility]ers HospitalComment on above: Performed By: #### BCID2 ####[facility] Vgnfkygywd4[address] [place] [id number]. Yilan ChangBCID CONTROLSPASSEDAdams County HospitalComment on above:Performed By: #### BCID2 ####[facility] Slkhygwymb039[address] [place] [address]Dr. Yiemily ChangBCIDBTHDBLOOD CULTURE BOTTLE INFORMATIONAdams County HospitalComment on above:Performed By: #### BCID2 ####[facility] Kvypkmgfsw04[address] [place], [place] [address]Dr. Yiemily SureshGzkkzZPOXZA9IEBMYIIGILCBZ RESISTANCE GENESAdams County HospitalComcovenant medical center on above:Performed By: #### BCID2 ####[facility] Fimvirlrck6813[address] [place], [place] [address]Dr. Yiemily SureshDcuysOBOYVP3MPO BELOWAdams County HospitalComment on above:Result Comment: Note: Antimicrobial resitance can occur via multiple mechanisms. A Not Detected result for the Film[employer] antomicrobial resistance gene assays does not indicate antimicrobial susceptibility. Subculturing is required for species identification and susceptibility testing of isolates.Performed By: #### BCID2 ####[facility] Pkjdintorv512[address] [place], [place] [address]Dr. Yiemily LcfbiORWHXE5MdezlfnySeizwsAbc Bellevue HospitalComment on above:Performed By: #### BCID2 ####[facility] Ngbnvdqinf352557 [address] [place], [place] [address]Dr. Yiemily SureshWzqvhFTZULB3QittchjnEnuctkAad Bellevue HospitalComment on above:Performed By: #### BCID2 ####[facility] Syotqxbebl094057 [address] [place], [place] [address]Dr. Yiemily GoscpAJEIBW5KEYAERcjthbNawSt. Anthony's Hospital Comment on above:Performed By: #### BCID2 ####[facility] Sqhfqeusfh763457 [address] [place], [place] [address]Dr. Yilan ChangBottle Set:Set 2NormalThe [facility] HospitalComment on above:Performed By: #### BCID2 ####[facility] Ylzgufieso409657 [address] [place], [place] [address]Dr. Yilan ChangBottle: AnaerobicNormalThe [facility] HospitalComment on above:Performed By: #### BCID2 ####[facility] Spezbwbkrd514657 [address] [place], [place] [address]Dr. Yiemily ChangC. neoformans/gattiiNot detectedNormalNOT DETECTEDThe [facility] HospitalComment on above:Performed By: #### BCID2 ####[facility] Iyfhhaovyv310257 [address] [place], [place] [address]Dr. Yilan ChangCandida albicansNot detectedNormalNOT DETECTEDThe [facility] HospitalComment on above: Performed By: #### BCID2 ####[facility] Ylwfsvbgcm161157 [address] [place], [place] [address]Dr. Yilan ChangCandida aurisNot detectedNormalNOT DETECTEDThe [facility] HospitalComment on above:Performed By: #### BCID2 ####[facility] Eyyirjmqys086857 [address] [place], [place] [address]Dr. Tishlan ChangCandida glabrataNot detectedNormalNOT DETECTEDThe [facility] on above:Performed By: #### BCID2 ####[facility] Fxuuncemcq684357 [address] [place], [place] [address]Dr. Tishlan ChangCandida KruseiNot detected NormalNOT DETECTEDThe [facility] Hospitalment on above:Performed By: #### BCID2 ####[facility] Pzjwbxfgaj989657 [address] [place], [place] [address]Dr. Yilan ChangCandida ParapsilosisNot detectedNormalNOT DETECTEDThe [facility] HospitalComment on above:Performed By: #### BCID2 ####[facility] Ssvvhbtrzz020557 [address] [place], [place] [address]Dr. Yilan ChangCandida TropicalisNot detectedNormalNOT DETECTEDThe [facility] on above: Performed By: #### BCID2 ####[facility] Fdfeovxamb6873 [place] [address]Dr. Yilan ChangCTX-M Resistant GeneNot Applicable NormalNOT DETECTEDThe [facility] HospitalComcovenant medical center on above:Performed By: #### BCID2 ####[facility] Rzyvvhhrfg914557 [address] [place], [place] [address]Dr. Yilan ChangE. Cloacae complexNot detectedNormalNOT DETECTEDThe [facility] Comment on above:Performed By: #### BCID2 ####[facility] Zqingblawv796457 [address] [place], [place] [address]Dr. Yilan ChangE. faecalisNot detectedNormal NOT DETECTEDThe [facility] HospitalComment on above:Performed By: #### BCID2 ####[facility] Bhyzyggeqz196157 [address] [place], [place] [address]Dr. Yilan ChangE. faeciumNot detectedNormalNOT DETECTEDThe [facility] HospitalComcovenant medical center on above:Performed By: #### BCID2 ####[facility] Iljfpwxwot194357 [address] [place], [place] [address]Dr. Yilan ChangEnterobacteriaceaeNot detectedNormal NOT DETECTEDThe [facility] HospitalComment on above:Performed By: #### BCID2 ####[facility] Jxppuzmwly824957 [address] [place], [place] [address]Dr. Yilan ChangEscherichia coliNot detectedNormalNOT DETECTEDThe [facility] Comment on above:Performed By: #### BCID2 ####[facility] Fpbijpyniy215857 [address] [place], [place] [address]Dr. Yilan ChangH. influenzaeNot detected NormalNOT DETECTEDThe [facility] HospitalComcovenant medical center on above:Performed By: #### BCID2 ####[facility] Qpeqnqmmyr352257 [address] [place], [place] [address]Dr. Yilan ChangIMP Resistant GeneNot ApplicableNormalNOT DETECTEDThe [facility] HospitalComcovenant medical center on above:Performed By: #### BCID2 ####[facility] Ljiyugwfmu883357 [address] [place], [place] [address]Dr. Yilan ChangK. oxytocaNot detectedNormalNOT DETECTEDThe [facility] HospitalComcovenant medical center on above:Performed By: #### BCID2 ####[facility] Knxfhuugzf840557 [address] [place], [place] [address]Dr. Devin SureshK. pneumoniaeNot detectedNormalNOT DETECTEDThe [facility] HospitalComment on above:Performed By: #### BCID2 ####[facility] Zxuhuakynl678457 [address] [place], [place] [address]Dr. Devin SureshKlebsiella aerogenesNot detectedNormalNOT DETECTEDThe [facility] HospitalComment on above: Performed By: #### BCID2 ####[facility] Mtxoeopltr297057 [address] [place], [place] [address]Dr. Devin SureshKPC Resistant GeneNot ApplicableNormal NOT DETECTEDThe [facility] HospitalComment on above:Performed By: #### BCID2 ####[facility] Wcnsbnzvjj923657 [address] [place], [place] [address]Dr. Devin SureshList. monocytogenesNot detectedNormalNOT DETECTEDThe [facility] HospitalComcovenant medical center on above:Performed By: #### BCID2 ####[facility] Rtczqkiwgz843157 [address] [place], [place] [address]Dr. Devin SureshMcr-1 Resistant GeneNot ApplicableNormalNOT DETECTEDThe [facility] HospitalComcovenant medical center on above:Performed By: #### BCID2 ####[facility] Nwssfpakjk830257 [address] [place], [place] [address]Dr. Devin SureshmecA/CNot ApplicableNormalNOT DETECTED The [facility] HospitalComcovenant medical center on above:Performed By: #### BCID2 ####[facility] Mnitllfrsq252057 [address] [place], [place] [address]Dr. Devin Suresh mecA/C MREJNot ApplicableNormalNOT DETECTEDThe [facility] HospitalComcovenant medical center on above:Performed By: #### BCID2 ####[facility] Lyqsxfjbxn325557 [address] [place], [place] [address]Dr. Devin SureshN. meningitidisNot detectedNormalNOT DETECTEDThe [facility] HospitalComcovenant medical center on above:Performed By: #### BCID2 ####[facility] Jrmsitbuqd170457 [address] [place], [place] [address]Dr. Devin SureshNDM Resistant GeneNot ApplicableNormalNOT DETECTEDThe [facility] HospitalComcovenant medical center on above:Performed By: #### BCID2 ####[facility] Imopqfuvsg17[address] [place] [address]Dr. Yilan RqpvrVpn-94-ojvjWmm ApplicableNormalNOT DETECTEDThe [facility] HospitalComment on above:Performed By: #### BCID2 ####[facility] Vmzfpokgwj434757 [address] [place], [place] [address]Dr. Yilan ChangProteusNot detectedNormalNOT DETECTEDThe [facility] Comment on above:Performed By: #### BCID2 ####[facility] Pqqbpilfal9378 [place] [address]Dr. Yilan ChangPseud. aeruginosaNot detected NormalNOT DETECTEDThe [facility] HospitalComment on above:Performed By: #### BCID2 ####[facility] Tochykwkpj502957 [address] [place], [place] [address]Dr. Yilan ChangS. maltophiliaNot detectedNormalNOT DETECTEDThe [facility] Comment on above:Performed By: #### BCID2 ####[facility] Kwnkjoqgyv577857 [address] [place], [place] [address]Dr. Yilan ChangSalmonellaNot detectedNormal NOT DETECTEDThe [facility] HospitalComment on above:Performed By: #### BCID2 ####[facility] Bsmukjvjqh948257 [address] [place], [place] [address]Dr. Yilan ChangSeratia marcescensNot detectedNormalNOT DETECTEDThe [facility] Comment on above:Performed By: #### BCID2 ####[facility] Adangqifku794057 [address] [place], [place] [address]Dr. Yilan ChangSite:RACNormalThe [facility] HospitalComment on above:Performed By: #### BCID2 ####[facility] Fafbdveufk711[address] [place], [place] [address]Dr. Yilan ChangStaph. aureus Not detectedNormalNOT DETECTEDThe [facility] HospitalComment on above:Performed By: #### BCID2 ####[facility] Acvfbnkxqi624257 [address] [place], [place] [address]Dr. Yilan ChangStaph. epidermidisNot detectedNormalNOT DETECTEDThe [facility] HospitalComment on above:Performed By: #### BCID2 ####[facility] Rvbknrudic3412 [place] [address]Dr. Devin SureshStaph. lugdunensisNot detectedNormalNOT DETECTEDThe [facility] HospitalComment on above: Performed By: #### BCID2 ####[facility] Qrshrztxut620057 [address] [place], [place] [address]Dr. Devin ChangStaphylococcusNot detectedNormalNOT DETECTEDThe [facility] HospitalComment on above:Performed By: #### BCID2 ####[facility] Yjwphhdusi403357 [address] [place], [place] [address]Dr. Devin SureshStrep. agalactiaeNot detectedNormalNOT DETECTEDThe [facility] Comment on above:Performed By: #### BCID2 ####[facility] Pljnnnteom379357 [address] [place], [place] [address]Dr. Devin SureshStrep. pneumoniaeNot detected NormalNOT DETECTEDThe [facility] HospitalComcovenant medical center on above:Performed By: #### BCID2 ####[facility] Ucntcrluhb585257 [address] [place], [place] [address]Dr. Devin SureshStrep. pyogenesNot detectedNormalNOT DETECTEDThe [facility] Comment on above:Performed By: #### BCID2 ####[facility] Uoeqkmeiwr537257 [address] [place], [place] [address]Dr. Devin SureshStreptococcusNot detected NormalNOT DETECTEDThe [facility] HospitalComment on above:Performed By: #### BCID2 ####[facility] Jzwdpmvggh624057 [address] [place], [place] [address]Dr. Devin SureshvanA/B Resist. GeneNot ApplicableNormalNOT DETECTEDThe [facility] HospitalComcovenant medical center on above:Performed By: #### BCID2 ####[facility] Dxutqxeqcn736557 [address] [place], [place] [address]Dr. Devin SureshVIM Resistant GeneNot ApplicableNormalNOT DETECTEDThe [facility] HospitalComcovenant medical center on above: Performed By: #### BCID2 ####[facility] Mnwvwkaztx982[address] [place], [place] [address]Dr. Devin SureshALBERT B. [facility] AUTO DIFFon [id number] #0.0 103/ulNormal0.0-0.1The [facility] HospitalComment on above:Performed By: #### CBC ####[facility] Nfokztfmap736257 [address] [place], [place] [address]Dr. Tishlan ChangBasophils/100 WBC (Bld)0.5 %Normal0.2-2.0The [facility] HospitalComment on above:Performed By: #### CBC ####[facility] Oqauwuxgfj818557 [address] [place], [place] [address]Dr.Yilan ChangEO #0.1 103/ulNormal0.0-0.7The [facility] HospitalComment on above:Performed By: #### CBC ####[facility] Qpmxaqqwhe403257 [address] [place], [place] [address]Dr.Devin ChangEosinophils/100 WBC (Bld)2.3 %Normal0.9-7.0The [facility] HospitalComment on above:Performed By: #### CBC ####[facility] Dbchpnljvy613357 [address] [place], [place] [address]Dr.Devin ChangErythrocyte distribution width (RBC) [Ratio]13.4 %Normal 11.0-15.0The [facility] HospitalComment on above:Performed By: #### CBC ####[facility] Vdpplvmhcq557157 [address] [place], [place] [address]Dr. Devin ChangHematocrit (Bld) [Volume fraction]36.9 %Wphhri89.0-48.0The [facility] HospitalComment on above:Performed By: #### CBC ####[facility] Jeafpylwro111257 [address] [place], [place] [address]Dr.Tishlan ChangHemoglobin (Bld) [Mass/Vol]12.9 g/aTZpepbr79.0-16.0The [facility] HospitalComment on above: Performed By: #### CBC ####[facility] Gmhdubtlpg183657 [address] [place], [place] [address]Dr.Tishlan ChangIG #0.02 10e3/ulNormal0.00-0.03The [facility] HospitalComment on above:Performed By: #### CBC ####[facility] Amphgxubms92[address] [place], [place] [address]Dr.Devin SureshIG %0.4 %Normal 0.0-0.5The [facility] HospitalComment on above:Performed By: #### CBC ####[facility] Azjanqhrcy951457 [address] [place], [place] [address]Dr.Devin SureshLYMPH #0.9 103/ulCritically low1.2-3.8The [facility] HospitalComment on above:Performed By: #### CBC ####[facility] Nofjgmnund394357 [address] [place], [place] [address]Dr.Devin SureshLymphocytes/100 WBC (Bld)16.4 %Critically low20.5-60.0 The [facility] HospitalComment on above:Performed By: #### CBC ####[facility] Ppwkohjyju352457 [address] [place], [place] [address]Dr.Devin SureshMANUAL DIFF REQNONormalThe [facility] HospitalComment on above:Performed By: #### CBC ####[facility] Makcsfyfmt189957 [address] [place], [place] [address]Dr. Devin SureshH (RBC) [Entitic mass]30.9 myTtogxj38.7-34.0[facility] Comment on above:Performed By: #### CBC ####[facility] Dqpaaywtcp337357 [address] [place], [place] [address]Dr.Devin SureshMCHC (RBC) [Mass/Vol]35.0 g/dL Hpbecf22.9-35.2[facility] HospitalComment on above:Performed By: #### CBC ####[facility] Xnfomcesqz237557 [address] [place], [place] [address]Dr. Devin SureshMCV (RBC) [Entitic vol]88.3 sMPheoru48.0-99.0The [facility] Comment on above:Performed By: #### CBC ####[facility] Ckotxlhngp071857 [address] [place], [place] [address]Dr.Devin SureshMONO #0.4 103/ulNormal0.3-0.8 The [facility] HospitalComment on above:Performed By: #### CBC ####[facility] Tadhihlxab9[address] [place] [address]Dr.Devin Suresh Monocytes/100 WBC (Bld)6.9 %Normal1.7-12.0The [facility] HospitalComment on above: Performed By: #### CBC ####[facility] Zonpqdbxnx779357 [address] [place], [place] [address]Dr.Devin SureshNEUT #4.2 103/ulNormal1.4-6.5The [facility] HospitalComment on above:Performed By: #### CBC ####[facility] Qbksenuiwe552457 [address] [place], [place] [address]Dr.Devin SureshNeutrophils/100 WBC (Bld)73.5 %Ivsafg73.0-75.0The [facility] HospitalComment on above:Performed By: #### CBC ####[facility] Gkxslhguib704457 [address] [place], [place] [address]Dr.Devin SureshPlatelet mean volume (Bld) [Entitic vol]8.6 fLCritically low 9.5-13.5The [facility] HospitalComment on above:Performed By: #### CBC ####[facility] Dxkkrcgzae547057 [address] [place], [place] [address]Dr. Devin QjgxfNXD543 103/hbYvueuf209-702Cos [facility] HospitalComment on above: Performed By: #### CBC ####[facility] Xgzflmvbjp296257 [address] [place], [place] [address]Dr.Devin SureshRBC4.18 106/ulCritically low4.20-5.40The [facility] HospitalComment on above:Performed By: #### CBC ####[facility] Iadvntmocf776957 [address] [place], [place] [address]Dr.Devin ChangWBC5.7 103/ul Normal4.0-11.0The [facility] HospitalComment on above:Performed By: #### CBC ####[facility] Xawidrtorh197657 [address] [place], [place] [address]Dr. Devin SureshCULTURE BLOODon 85-15-7300Fmrjzkopqet examination of blood, culture Culture Observations: NO GROWTH AT 5 DAYS.NormalThe [facility] HospitalComment on above:Performed By: #### BLDCX1 ####[facility] Mhvwoovktk4[address] [place] [address]Dr. Devin SureshCovid-19 PCR (CVDTB)on 39-46-5032AYXC-CoV-2 (COVID-19) RNA EBONIE+probe Ql (Unsp spec)Not detectedNormalNOT DETECTEDThe [facility] Comment on above:Result Comment: When diagnostic testing [...] for this test is supported by the [place] of [employer] and Human Service's declaration that [...] no longer be used).Performed By: #### CVDTBH ####[facility] Vehgabpivl76[address] [place] [address]Dr. Devin ChangLACTATE/LACTIC ACIDon 94-63-1649Xgtlewz [Moles/Vol]1.2 mmol/LNormal0.4-1.9The [facility] Comment on above:Performed By: #### LACT ####[facility] Bdfioxvfbn4608 [place] [address]Dr. Devin SureshPROF 14(COMP METB)on 84-52-3382Yrvyfbf [Mass/Vol]4.1 g/dLNormal3.4-5.0The [facility] HospitalComment on above:Performed By: #### CMP ####[facility] Cqwputqnow1588 [place] [address]Dr.Devin SureshAlbumin/Globulin [Mass ratio]1.2 {ratio} NormalThe [facility] HospitalComment on above:Performed By: #### CMP ####[facility] Mizimwqtyk7443 [place] [address]Dr.Yilan ChangALP [Catalytic activity/Vol]114 U/TRlukfo87-069Xwa [facility] HospitalComment on above:Performed By: #### CMP ####[facility] Skjstpleyl9037 [place] [id number].Yilan ChangALT [Catalytic activity/Vol]20 U/LNormal 14-59The [facility] HospitalComment on above:Performed By: #### CMP ####[facility] Mcccstxbez8521 [place] [address]Dr.Yilan ChangAnion gap [Moles/Vol]13.5 mmol/LNormalThe [facility] HospitalComment on above:Performed By: #### CMP ####[facility] Jexapfrnia485657 [address] [place], [place] [address]Dr.Yilan ChangAST [Catalytic activity/Vol]12 U/LCritically lap26-52Oai [facility] HospitalComment on above:Performed By: #### CMP ####[facility] Uaxfrfrfoz803957 [address] [place], [place] [address]Dr.Yilan ChangBilirubin [Mass/Vol]0.4 mg/dLNormal0.2-1.0The [facility] on above:Performed By: #### CMP ####[facility] Qldnmafmen638257 [address] [place], [place] [address]Dr.Yilan ChangCalcium [Mass/Vol]9.3 mg/dLNormal8.5-10.1The [facility] HospitalComment on above:Performed By: #### CMP ####[facility] Anooxksgty[address] [place], [place] [address]Dr.Yilan ChangChloride [Moles/Vol]105 mmol/CFqxyxm84-671Ycq [facility] HospitalComment on above:Performed By: #### CMP ####[facility] Gudbhvoood866[address] [place], [place] [address]Dr.Yilan ChangCO2 [Moles/Vol]27.3 mmol/XPvnigx07.0-32.0The [facility] HospitalComment on above:Performed By: #### CMP ####[facility] Dufahlkdqh0029 [place] [address]Dr.Yilan ChangCreatinine [Mass/Vol]0.90 mg/dLNormal0.55-1.02The [facility] HospitalComment on above: Performed By: #### CMP ####[facility] Qhtyvoumqg4184 [place] [address]Dr.Yilan ChangEGFR-AF LEBANESE>60Normal>=60The [facility] HospitalComment on above:Performed By: #### CMP ####[facility] Kppiwjyarw306[address] [place], [place] [address]Dr.Yilan ChangEGFR-NON AF LEBANESE>60Normal>=60The [facility] HospitalComment on above:Performed By: #### CMP ####[facility] Ciblqxhlqb077957 [address] [place], [place] [address]Dr. Yilan ChangGlobulin (S) [Mass/Vol]3.5 g/dLNormalThe [facility] HospitalComment on above:Performed By: #### CMP ####[facility] Jrqyvqrzlx764557 [address] [place], [place] [address]Dr.Yilan ChangGlucose [Mass/Vol]114 mg/dLCritically vbnt92-860Dtw [facility] HospitalComment on above:Performed By: #### CMP ####[facility] Iweieqjmao038657 [address] [place], [place] [address]Dr. Yilan ChangPotassium [Moles/Vol]3.8 mmol/LNormal3.5-5.1The [facility] Comment on above:Performed By: #### CMP ####[facility] Ioqyjtfibd360657 [address] [place], [place] [address]Dr.Yilan ChangProtein [Mass/Vol]7.6 g/dL Normal6.4-8.2The [facility] HospitalComment on above:Performed By: #### CMP ####[facility] Arjboggdab828757 [address] [place], [place] [address]Dr. Yilan ChangSodium [Moles/Vol]142 mmol/RDgqjlr873-355Pyy [facility] HospitalComment on above:Performed By: #### CMP ####[facility] Efofjchqsk593757 [address] [place], [place] [address]Dr.Yilan ChangUrea nitrogen [Mass/Vol]12.0 mg/dLNormal 7.0-18.0The [facility] HospitalComment on above:Performed By: #### CMP ####[facility] Hjqwawonvv456857 [address] [place], [place] [address]Dr. Yilan ChangUrea nitrogen/Creatinine [Mass ratio]13.3 mg/mgNormalThe [facility] HospitalComment on above:Performed By: #### CMP ####[facility] Rifsfwqagn065357 [address] [place], [place] [address]Dr.Yilan ChangXR CHEST 1 Von 44-27-9535DM CHEST 1 VNormalMemorial Health System [facility] Memorial HospitalXR FOOT LT MIN 3 VIEWSon 36-56-3488ZK FOOT LT MIN 3 VIEWSNormMercy Health Urbana HospitalACETAMINOPHENon 38-83-0811Pnuvawrtueqwh [Mass/Vol]ug/mLCritically low10.0-30.0The [facility] HospitalComment on above:Performed By: #### ACET, SALYC ####[facility] Weazpetrrr904[address] [place], [place] [address]Dr. Tishlan ChangCBC AUTO DIFF on [id number] #0.1 103/ulNormal0.0-0.1The [facility] HospitalComcovenant medical center on above: Performed By: #### CBC ####[facility] Iuluiahqdz761857 [address] [place], [place] [address]Dr.Tishlan ChangBasophils/100 WBC (Bld)0.8 %Normal 0.2-2.0The [facility] HospitalComment on above:Performed By: #### CBC ####[facility] Qeukqryclt016857 [address] [place], [place] [address]Dr.Yilan ChangEO # 0.2 103/ulNormal0.0-0.7The [facility] HospitalComcovenant medical center on above:Performed By: #### CBC ####[facility] Ayyknymrgv639[address] [place], [place] [address]Dr. Tishlan ChangEosinophils/100 WBC (Bld)1.6 %Normal0.9-7.0The [facility] Comment on above:Performed By: #### CBC ####[facility] Mxngbabmxu6616[address] [place], [place] [address]Dr.Tishemily ChangErythrocyte distribution width (RBC) [Ratio]12.9 %Lrrxbf92.0-15.0The [facility] HospitalComment on above: Performed By: #### CBC ####[facility] Evxegxvygu264[address] [place], [place] [address]Dr.Tishemily ChangHematocrit (Bld) [Volume fraction]35.5 % Critically low36.0-48.0The [facility] HospitalComment on above:Performed By: #### CBC ####[facility] Tqkirisbrj[address] [place], [place] [address]Dr. Devin ChangHemoglobin (Bld) [Mass/Vol]12.4 g/bUSsricl34.0-16.0The [facility] HospitalComment on above:Performed By: #### CBC ####[facility] Tmjiwmvbbu377[address] [place], [place] [address]Dr.Yiemily ChangIG #0.03 10e3/ulNormal0.00-0.03The [facility] HospitalComment on above:Performed By: #### CBC ####[facility] Vxiydzgica834[address] [place], [place] [address]Dr. Devin ChangIG %0.3 %Normal0.0-0.5The [facility] HospitalComment on above:Performed By: #### CBC ####[facility] Egmoygliyg599[address] [place], [place] [address]Dr.Tishlan ChangLYMPH #1.8 103/ulNormal1.2-3.8[facility] Comment on above:Performed By: #### CBC ####[facility] Vyyjecpzrf2729[address] [place], [place] [address]Dr.Tishlan ChangLymphocytes/100 WBC (Bld)19.5 %Critically low20.5-60.0The [facility] HospitalComment on above:Performed By: #### CBC ####[facility] [address]whsplv[address] [place] [address]Dr.Devin SureshMANUAL DIFF REQNONormalThe [facility]ers HospitalComment on above: Performed By: #### CBC ####[facility] Emzogihqqu55[address] [place] [address]Dr.Devin SureshH (RBC) [Entitic mass]31.2 pgNormal 26.7-34.0The [facility] HospitalComment on above:Performed By: #### CBC ####[facility] Nnnmmclavu28[address] [place] [address]Dr. Devin SureshHC (RBC) [Mass/Vol]34.9 g/nPDikmif99.9-35.2[facility] Comment on above:Performed By: #### CBC ####[facility] Hwigjfqfsd9216[address] [place], [place] [address]Dr.Devin SureshV (RBC) [Entitic vol]89.2 fL Foornh15.0-99.0The [facility] HospitalComment on above:Performed By: #### CBC ####[facility] Alqlohrmco449[address] [place], [place] [address]Dr. Devin SureshMONO #0.5 103/ulNormal0.3-0.8The [facility] HospitalComment on above: Performed By: #### CBC ####[facility] Jbaojattat706[address] [place], [place] [address]Dr.Devin ChangMonocytes/100 WBC (Bld)5.0 %Normal 1.7-12.0The [facility] HospitalComment on above:Performed By: #### CBC ####[facility] Xxwtjsozrw65[address] [place] [address]Dr. Devin SureshNEUT #6.8 103/ulCritically high1.4-6.5The [facility] HospitalComment on above:Performed By: #### CBC ####[facility] Ksklsusxyd860[address] [place], [place] [address]Dr.Devin SureshNeutrophils/100 WBC (Bld)72.8 %Normal 43.0-75.0The [facility] HospitalComment on above:Performed By: #### CBC ####[facility] Ecxczaivaq5[address] [place] [address]Dr. Devin KerwinPlatelet mean volume (Bld) [Entitic vol]8.6 fLCritically low9.5-13.5 The [facility] HospitalComment on above:Performed By: #### CBC ####[facility] Wztoodudim600[address] [place], [place] [address]Dr.Devin BghlbAOQ514 103/zyVezpzy045-421Cux [facility] HospitalComment on above:Performed By: #### CBC ####[facility] Xlxvrurjoi359457 [address] [place], [place] [address]Dr. Devin ChangRBC3.98 106/ulCritically low4.20-5.40The [facility] HospitalComment on above:Performed By: #### CBC ####[facility] Lcycewkbcn068[address] [place], [place] [address]Dr.Devin ChangWBC9.3 103/ulNormal4.0-11.0The [facility] HospitalComment on above:Performed By: #### CBC ####[facility] Wgnhgybkto260[address] [place], [place] [address]Dr.Devin SureshDRUG SCREEN RAPID (URINE)on 05-18-5824WOMLmhuvhniBvinaxGWKMGHMPFwb [facility] HospitalComcovenant [facility] on above:Performed By: #### DRUGRPD ####[facility] Ulcicggbut444057 [address] [place], [place] [address]Dr. Devin ChangBARNegativeNormalNEGATIVEMemorial Health System Marietta Memorial HospitalComment on above:Performed By: #### DRUGRPD ####[facility] Plhnmytbgi959957 [address] [place], [place] [address]Dr. Devin ChangBUP NegativeNormalNEGATIVEMemorial Health System Marietta Memorial HospitalComment on above:Performed By: #### DRUGRPD ####[facility] Extzfqwdjk018457 [address] [place], [place] [address]Dr. Devin ChangBZONegativeNormalNEGATIVEMemorial Health System Marietta Memorial HospitalComment on above:Performed By: #### DRUGRPD ####[facility] Zzomjomksl17025[address] [place], [place] [address]Dr. Devin SureshCOCNegativeNormalNEGATIVEWhite Hospital HospitalComment on above:Performed By: #### DRUGRPD ####[facility] Psqriddlzq677957 [address] [place], [place] [address]Dr. Devin SureshCUT-OFFSSEE BELOWAdams County HospitalComment on above:Result Comment: AMP (Amphetamine): 500ng/mL, BAR (Barbituates): 200 ng/mL, BZO (Benzodiazepines): 15 0 ng/mL, BUP (Buprenorphine): 10 ng/mL, KATHY (Cocaine): 150 ng/mL, mAMP (Methamphetamine): 500 ng/mL, MTD (Methadone): 200 ng/mL, OPI (Opiates): 100 ng/mL, OXY (Oxycodone): 100 ng/mL, PCP (Phencyclidine): 25 ng/mL, PPX (Propoxyphene): 300 ng/mL, THC (Cannabinoids): 50 ng/mL, TCA (Trycyclic Antidepressants): 300 ng/mLPerformed By: #### DRUGRPD ####[facility] Yafrxjrmjn528[address] [place], [place] [address]Dr. Devin SureshDRUG CUT HEADERDRUG CLASS TEST SYSTEM CUT-OFF CONCENTRATIONS ARE FOLLOWS:NormalThe [facility]ers HospitalComment on above:Performed By: #### DRUGRPD ####[facility] Nepktximey598157 [address] [place], [place] [address]Dr. Devin uSreshmAMP NegativeNormalNEGATIVEWhite Hospital HospitalComment on above:Performed By: #### DRUGRPD ####[facility] Pyaoukyvzz262457 [address] [place], [place] [address]Dr. Devin SureshMTDNegativeNormalNEGATIVEWhite Hospital HospitalComment on above:Performed By: #### DRUGRPD ####[facility] Besrwsliqk462657 [address] [place], [place] [address]Dr. Devin SureshOPINegativeNormalNEGATIVEWhite Hospital HospitalComment on above:Performed By: #### DRUGRPD ####[facility] Zelpvcmtbc702757 [address] [place], [place] [address]Dr. Yilan ChangOXYNegative NormalNEGATIVEMemorial Health System Marietta Memorial HospitalComment on above:Performed By: #### DRUGRPD ####[facility] Fdxsxjoppz158957 [address] [place], [place] [address]Dr. Yilan ChangPCPNegativeNormalNEGATIVEWhite Hospital HospitalComment on above: Performed By: #### DRUGRPD ####[facility] Xjazkldqrk445957 [address] [place], [place] [address]Dr. Yilan ChangPPXNegativeNormalNEGATIVEMemorial Health System Marietta Memorial HospitalComment on above:Performed By: #### DRUGRPD ####[facility] Mfmvkarcow049557 [address] [place], [place] [address]Dr. Yilan ChangTCAPositive AbnormalNEGATIVEMemorial Health System Marietta Memorial HospitalComment on above:Performed By: #### DRUGRPD ####[facility] Yanvdhxxgg503257 [address] [place], [place] [address]Dr. Yilan ChangTHCNegativeNormalNEGATIVEMemorial Health System Marietta Memorial HospitalComment on above: Performed By: #### DRUGRPD ####[facility] Zdfbxohxhg918057 [address] [place], [place] [address]Dr. Yilan ChangER URINE PROFILEon 70-13-5198Rgejgqwqg Ql (U)NegativeNormalNEGATIVEMemorial Health System Marietta Memorial HospitalComcovenant medical center on above:Performed By: #### ERUR ####[facility] Uqwrwdvumz835957 [address] [place], [place] [address]Dr. Yilan ChangClarity (U)CLEARNormalCLEARMemorial Health System Marietta Memorial HospitalComment on above:Performed By: #### ERUR ####[facility] Gnhjekevre291057 [address] [place], [place] [address]Dr. Yilan ChangColor (U)LT. YELLOWNormalYELLOWMemorial Health System Marietta Memorial HospitalComment on above:Performed By: #### ERUR ####[facility] Papuswnrwc019957 [address] [place], [place] [address]Dr. Yilan ChangERUAHDA micrscopic examination will be performed if indicated.NormalMemorial Health System Marietta Memorial HospitalComment on above:Performed By: #### ERUR ####[facility] Mvzpkchsrb440457 [address] [place], [place] [address]Dr. Devin SureshGlucose Ql (U) 500 mg/dlAbnormalNEGATIVEWhite Hospital HospitalComment on above:Performed By: #### ERUR ####[facility] Hyttqeissb976357 [address] [place], [place] [address]Dr. Tishlan KerwinHemoglobin Ql (U)TRACE-INTACTAbnormalNEGATIVEWhite Hospital HospitalComment on above:Performed By: #### ERUR ####[facility] Lcbrqevsmw104657 [address] [place], [place] [address]Dr. Tishlan ChangKetones Ql (U) NegativeNormalNEGATIVEWhite Hospital HospitalComment on above:Performed By: #### ERUR ####[facility] Adiagionbh106157 [address] [place], [place] [address]Dr. Devin ChangLEUKOCYTESNegativeNormalNEGATIVEWhite Hospital HospitalComment on above:Performed By: #### ERUR ####[facility] Mwnzuijbgo168757 [address] [place], [place] [address]Dr. Devin ChangNitrite Ql (U)NegativeNormalNEGATIVEWhite Hospital HospitalComment on above:Performed By: #### ERUR ####[facility] Hzkrwrielp399157 [address] [place], [place] [address]Dr. Devin ChangpH (U)6.0 [pH] Normal5-9Mem[facility] HospitalComment on above:Performed By: #### ERUR ####[facility] Zpaezjrdoi245557 [address] [place], [place] [address]Dr. Tishlan ChangSPEC GRAVITY1.380Zwhnju5.005-<=1.025The [facility] HospitalComment on above:Performed By: #### ERUR ####[facility] Ixdnjnddhv450157 [address] [place], [place] [address]Dr. Yilan ChangUA PROTEINTRACENormalNEGATIVE/ TRACEThe [facility] HospitalComment on above:Performed By: #### ERUR ####[facility] Uljcabedhy511757 [address] [place], [place] [address]Dr. Yilan ChangUR MICRO IND NOT INDICATEDNormalThe [facility] HospitalComment on above:Performed By: #### ERUR ####[facility] Gqcniytfob321457 [address] [place], [place] [address]Dr. Yilan ChangUrobilinogen Qn (U)0.2 {Sheyla'U}/dLNormal0.2 - 1.0The [facility] HospitalComment on above:Performed By: #### ERUR ####[facility] Dtgruofknq081157 [address] [place], [place] [address]Dr. Yilan ChangETHANOL (BLD ALC)on 05-13-6328GYF NOTENOTE: 80 mg/dl is the legal limit for a blood alcohol levelNoMary Rutan HospitalComment on above:Performed By: #### ETH ####[facility] Ibjcsmqwhs227657 [address] [place], [place] [address]Dr. Yilan ChangEthanol [Mass/Vol]mg/dLNoMary Rutan HospitalComment on above: Performed By: #### ETH ####[facility] Httuttrvpk394457 [address] [place], [place] [address]Dr.Yilan ChangPROF CHEM 8 (BAS METB)on 22-12-1321Wntzm gap [Moles/Vol]12.4 mmol/LNormalThe [facility] HospitalComment on above:Performed By: #### BMP ####[facility] Kdhrlhpxze522257 [address] [place], [place] [address]Dr.Yilan ChangCalcium [Mass/Vol]8.6 mg/dLNormal8.5-10.1The [facility] HospitalComment on above:Performed By: #### BMP ####[facility] Nkiiehriib937[address] [place], [place] [address]Dr.Yilan ChangChloride [Moles/Vol]103 mmol/BTfxapt70-410Ocm [facility] HospitalComment on above:Performed By: #### BMP ####[facility] Wswwepplop953557 [address] [place], [place] [address]Dr.Yilan ChangCO2 [Moles/Vol]27.5 mmol/JHrdmrj70.0-32.0The [facility] HospitalComment on above:Performed By: #### BMP ####[facility] Ndrzthukbb29035[address] [place], [place] [address]Dr.Yilan ChangCreatinine [Mass/Vol]1.10 mg/dLCritically high0.55-1.02The [facility] HospitalComment on above:Performed By: #### BMP ####[facility] Rvadlutzsz3[address] [place] [address]Dr.Yilan ChangEGFR-AF LEBANESE>60Normal>=60The [facility] HospitalComment on above:Performed By: #### BMP ####[facility] Sjiqaxfwjp731157 [address] [place], [place] [address]Dr.Yilan ChangEGFR-NON AF UPXQDJVQ95 mL/min/1.07w9Mbzmtsdldu low>=60The [facility] HospitalComment on above: Performed By: #### BMP ####[facility] Mygndodnsn417557 [address] [place], [place] [address]Dr.Yilan ChangGlucose [Mass/Vol]253 mg/dLCritically pscn79-213Klc [facility] HospitalComment on above:Performed By: #### BMP ####[facility] Mafbejvjdg576[address] [place], [place] [address]Dr. Tishlan ChangPotassium [Moles/Vol]3.9 mmol/LNormal3.5-5.1[facility] Comment on above:Performed By: #### BMP ####[facility] Zgxyjmpqmd805757 [address] [place], [place] [address]Dr.Yilan ChangSodium [Moles/Vol]139 mmol/L Njlojq241-664Noj [facility] HospitalComment on above:Performed By: #### BMP ####[facility] Viasnjzvqk152857 [address] [place], [place] [address]Dr. Yilan ChangUrea nitrogen [Mass/Vol]18.0 mg/dLNormal7.0-18.0[facility] Comment on above:Performed By: #### BMP ####[facility] Moxpazqzyf376857 [address] [place], [place] [address]Dr.Yilan ChangUrea nitrogen/Creatinine [Mass ratio]16.4 mg/mgNormalThe [facility] HospitalComment on above:Performed By: #### BMP ####[facility] Eiuetftylp252657 [address] [place], [place] [address]Dr. Yilan ChangSALICYLATEon 19-40-7609JCQYMZKVXH<2.8Normal<=19.9The [facility] HospitalComment on above:Performed By: #### RHEA BUI ####[facility] Bxpuhpukrb7[address] [place] [address]Dr. Devin ChangCBC AUTO DIFF on 29-75-6464KIJN #0.1 103/ulNormal0.0-0.1The [facility] HospitalComment on above: Performed By: #### CBC ####[facility] Fprtqbfpqm942657 [address] [place], [place] [address]Dr.Devin ChangBasophils/100 WBC (Bld)0.8 %Normal 0.2-2.0The [facility] HospitalComment on above:Performed By: #### CBC ####[facility] Tqfeazypbk659257 [address] [place], [place] [address]Dr.Yilan ChangEO # 0.2 103/ulNormal0.0-0.7The [facility] HospitalComment on above:Performed By: #### CBC ####[facility] Mkcwblmypu463457 [address] [place], [place] [address]Dr. Devin ChangEosinophils/100 WBC (Bld)2.1 %Normal0.9-7.0[facility] Comment on above:Performed By: #### CBC ####[facility] Bmpfnwvlbu000757 [address] [place], [place] [address]Dr.Devin ChangErythrocyte distribution width (RBC) [Ratio]12.6 %Sgrhtz17.0-15.0The [facility] HospitalComment on above: Performed By: #### CBC ####[facility] Qfxzrmtwtq909057 [address] [place], [place] [address]Dr.Devin ChangHematocrit (Bld) [Volume fraction]34.9 % Critically low36.0-48.0The [facility] HospitalComment on above:Performed By: #### CBC ####[facility] Dgupwlycdq499657 [address] [place], [place] [address]Dr. Devin ChangHemoglobin (Bld) [Mass/Vol]12.3 g/aXDdmuwg97.0-16.0The [facility] HospitalComment on above:Performed By: #### CBC ####[facility] Hkdjybatcw134357 [address] [place], [place] [address]Dr.Devin SureshIG #0.03 10e3/ulNormal0.00-0.03The [facility] HospitalComment on above:Performed By: #### CBC ####[facility] Javpdfmlmw993157 [address] [place], [place] [address]Dr. Devin SureshIG %0.4 %Normal0.0-0.5The [facility] HospitalComment on above:Performed By: #### CBC ####[facility] Wuvbdhtpvk035857 [address] [place], [place] [address]Dr.Devin SureshLYMPH #1.7 103/ulNormal1.2-3.8The [facility] Comment on above:Performed By: #### CBC ####[facility] Pgszonutwh986757 [address] [place], [place] [address]Dr.Devin Hernandezmphocytes/100 WBC (Bld)20.0 %Critically low20.5-60.0The [facility] HospitalComment on above:Performed By: #### CBC ####[facility] Aocnjgplhp850357 [address] [place], [place] [address]Dr.Devin SureshMANUAL DIFF REQNONormalThe [facility] HospitalComment on above: Performed By: #### CBC ####[facility] Szqilxyhjq297357 [address] [place], [place] [address]Dr.Devin SureshNYC HEALTH + H[facility]PIT[facility] (RBC) [Entitic mass]29.6 pgNormal 26.7-34.0The [facility] HospitalComment on above:Performed By: #### CBC ####[facility] Flomiankjr916357 [address] [place], [place] [address]Dr. Devin SureshHC (RBC) [Mass/Vol]35.2 g/bJAilvro34.9-35.2The [facility] Comment on above:Performed By: #### CBC ####[facility] Gkojkzofkq505657 [address] [place], [place] [address]Dr.Devin SureshV (RBC) [Entitic vol]83.9 fL Ygwzxp10.0-99.0The [facility] HospitalComment on above:Performed By: #### CBC ####[facility] Desmllhgit578857 [address] [place], [place] [address]Dr. Devin SureshMONO #0.4 103/ulNormal0.3-0.8The [facility] HospitalComment on above: Performed By: #### CBC ####[facility] Ohckfqhfzo920757 [address] [place], [place] [address]Dr.Devin ChangMonocytes/100 WBC (Bld)5.2 %Normal 1.7-12.0The [facility] HospitalComment on above:Performed By: #### CBC ####[facility] Ldidlmepcd456657 [address] [place], [place] [address]Dr. Devin SureshNEUT #6.0 103/ulNormal1.4-6.5The [facility] HospitalComment on above: Performed By: #### CBC ####[facility] Ntufsesinb413057 [address] [place], [place] [address]Dr.Devin ChangNeutrophils/100 WBC (Bld)71.5 %Normal 43.0-75.0The [facility] HospitalComment on above:Performed By: #### CBC ####[facility] Uusgissqwl368057 [address] [place], [place] [address]Dr. Devin SureshPlatelet mean volume (Bld) [Entitic vol]8.4 fLCritically low9.5-13.5 The [facility] HospitalComment on above:Performed By: #### CBC ####[facility] Xvfsfhbaou713557 [address] [place], [place] [address]Dr.Devin ZogcxPNK855 103/xyKyekah177-997Cxt [facility] HospitalComment on above:Performed By: #### CBC ####[facility] Argrqkgncp116957 [address] [place], [place] [address]Dr. Tishemily SureshRBC4.16 106/ulCritically low4.20-5.40The [facility] HospitalComment on above:Performed By: #### CBC ####[facility] Yvidncsdey416957 [address] [place], [place] [address]Dr.Devin ChangWBC8.4 103/ulNormal4.0-11.0The [facility] HospitalComment on above:Performed By: #### CBC ####[facility] Arsbcgookp220757 [address] [place], [place] [address]Dr.Devin ChangPROF 14(COMP METB)on 31-29-1087Aigblkx [Mass/Vol]3.4 g/dLNormal3.4-5.0The [facility] Comment on above:Performed By: #### CMP ####[facility] Tuwtmlmmsr851557 [address] [place], [place] [address]Dr.Devin ChangAlbumin/Globulin [Mass ratio] 1.0 {ratio}NormalThe [facility] HospitalComment on above:Performed By: #### CMP ####[facility] Dhiyjritjo115157 [address] [place], [place] [address]Dr. Devin ChangALP [Catalytic activity/Vol]108 U/RDknpey71-402Mqh [facility] Comment on above:Performed By: #### CMP ####[facility] Jchqzfkgpx112257 [address] [place], [place] [address]Dr.Yiemily ChangALT [Catalytic activity/Vol]15 U/QZaiikg32-78Edd [facility] HospitalComment on above:Performed By: #### CMP ####[facility] Mdgovmkgtd361757 [address] [place], [place] [address]Dr. Devin ChangAnion gap [Moles/Vol]14.6 mmol/LNormalThe [facility] HospitalComment on above:Performed By: #### CMP ####[facility] Bitdpiddrz885957 [address] [place], [place] [address]Dr.Tishlan ChangAST [Catalytic activity/Vol]11 U/L Critically wgb89-59Yfh [facility] HospitalComment on above:Performed By: #### CMP ####[facility] Vgtfdjxjwl193757 [address] [place], [place] [address]Dr. Tishemily ChangBilirubin [Mass/Vol]0.4 mg/dLNormal0.2-1.0The [facility] Comment on above:Performed By: #### CMP ####[facility] Veozdyeyoo32[address] [place], [place] [address]Dr.Yilan ChangCalcium [Mass/Vol]8.8 mg/dL Normal8.5-10.1The [facility] HospitalComment on above:Performed By: #### CMP ####[facility] Ibjqkhznwh985157 [address] [place], [place] [address]Dr. Yilan ChangChloride [Moles/Vol]104 mmol/YTeiglm17-110Iwj [facility] Comment on above:Performed By: #### CMP ####[facility] Gixixgqdti140[address] [place], [place] [address]Dr.Yilan ChangCO2 [Moles/Vol]24.2 mmol/L Adtocx00.0-32.0The [facility] HospitalComment on above:Performed By: #### CMP ####[facility] Doydwlvuuc300457 [address] [place], [place] [address]Dr. Yilan ChangCreatinine [Mass/Vol]1.35 mg/dLCritically high0.55-1.02The [facility] HospitalComment on above:Performed By: #### CMP ####[facility] Vfcnsubpfc6510[address] [place], [place] [address]Dr.Yilan ChangEGFR-AF GGMTWUVX95 mL/min/1.16v0Siakspxefs low>=60The [facility] HospitalComment on above: Performed By: #### CMP ####[facility] Cczhuwwnuf8380[address] [place], [place] [address]Dr.Yilan ChangEGFR-NON AF SBZWAUFB07 mL/min/1.73m2 Critically low>=60The [facility] HospitalComment on above:Performed By: #### CMP ####[facility] Zznlynklpe744[address] [place], [place] [address]Dr. Yilan ChangGlobulin (S) [Mass/Vol]3.5 g/dLNormalThe [facility] HospitalComment on above:Performed By: #### CMP ####[facility] Vqcvjrdyhl7536[address] [place], [place] [address]Dr.Yilan ChangGlucose [Mass/Vol]265 mg/dLCritically itga29-638Fzc [facility] HospitalComment on above:Performed By: #### CMP ####[facility] Chgyupgrik[address] [place] [address]Dr. Yilan ChangPotassium [Moles/Vol]3.8 mmol/LNormal3.5-5.1The [facility] Comment on above:Performed By: #### CMP ####[facility] Lqoarwkrfj0513[address] [place], [place] [address]Dr.Yilan ChangProtein [Mass/Vol]6.9 g/dL Normal6.4-8.2The [facility] HospitalComment on above:Performed By: #### CMP ####[facility] Ezhmeztjhw596[address] [place], [place] [address]Dr. Yilan ChangSodium [Moles/Vol]139 mmol/KIcufnk268-863Pcv [facility] HospitalComment on above:Performed By: #### CMP ####[facility] Ojxxgzgxpb513[address] [place], [place] [address]Dr.Yilan ChangUrea nitrogen [Mass/Vol]23.0 mg/dL Critically high7.0-18.0The [facility] HospitalComment on above:Performed By: #### CMP ####[facility] Kozmxjnjlp3275[address] [place], [place] [address]Dr. Yilan ChangUrea nitrogen/Creatinine [Mass ratio]17.0 mg/mgNormalThe [facility] HospitalComment on above:Performed By: #### CMP ####[facility] Ltlmxyojga008[address] [place], [place] [address]Dr.Devin ChangCBC AUTO DIFFon 38-23-5312AYNU #0.1 103/ulNormal0.0-0.1The [facility] HospitalComment on above: Performed By: #### CBC ####[facility] Uqpubfpbnh7423[address] [place], [place] [address]Dr.Yilan ChangBasophils/100 WBC (Bld)0.7 %Normal 0.2-2.0The [facility] HospitalComment on above:Performed By: #### CBC ####[facility] Srkrrsnhpc[address] [place] [place], [place] [address]Dr.Yilan ChangEO # 0.2 103/ulNormal0.0-0.7The [facility]riners HospitalComment on above:Performed By: #### CBC ####[facility] Oyobkylggt[address] [place], [place] [address]Dr. Yilan ChangEosinophils/100 WBC (Bld)2.2 %Normal0.9-7.0The [facility] Comment on above:Performed By: #### CBC ####[facility] Rcyvagbnyd186[address] [place], [place] [address]Dr.Yilan ChangErythrocyte distribution width (RBC) [Ratio]12.5 %Douaig73.0-15.0The [facility]ers HospitalComment on above: Performed By: #### CBC ####[facility] Zhqvqivyjg[address] [place], [place] [address]Dr.Yilan ChangHematocrit (Bld) [Volume fraction]40.2 % Xdszne91.0-48.0The [facility]ers HospitalComment on above:Performed By: #### CBC ####[facility] Pbyxvbezrx7[address] [place], [place] [address]Dr. Tishemily ChangHemoglobin (Bld) [Mass/Vol]13.8 g/qXMywrfn71.0-16.0The [facility] HospitalComment on above:Performed By: #### CBC ####[facility] Ecjngzkvuk[address] [place], [place] [address]Dr.Yilan ChangIG #0.03 10e3/ulNormal0.00-0.03The [facility]ers HospitalComment on above:Performed By: #### CBC ####[facility] Ylkcduygmc[address] [place], [place] [address]Dr. Yilan ChangIG %0.3 %Normal0.0-0.5The [facility] HospitalComment on above:Performed By: #### CBC ####[facility] Xolveanyxl220[address] [place], [place] [address]Dr.Yilan ChangLYMPH #2.7 103/ulNormal1.2-3.8[facility] Comment on above:Performed By: #### CBC ####[facility] Vcbyngoeyj607[address] [place], [place] [address]Dr.Yilan ChangLymphocytes/100 WBC (Bld)26.4 %Ollwpr03.5-60.0The [facility] HospitalComment on above:Performed By: #### CBC ####[facility] Eozusdpnze8700[address] [place], [place] [address]Dr. Devin SureshMANUAL DIFF REQNONormalThe [facility]ers HospitalComment on above: Performed By: #### CBC ####[facility] Fiqytmdooi[address] [place], [place] [address]Dr.Devin SureshNYC HEALTH + [facility] (RBC) [Entitic mass]30.0 pgNormal 26.7-34.0The [facility] HospitalComment on above:Performed By: #### CBC ####[facility] Uceqddzhmh5434[address] [place], [place] [address]Dr. Devin [facility]hUN[facility] (RBC) [Mass/Vol]34.3 g/kPAipqpw72.9-35.2[facility] Comment on above:Performed By: #### CBC ####[facility] Ykjoqkfinc867[address] [place], [place] [address]Dr.Devin SureshV (RBC) [Entitic vol]87.4 fL Vjjbey65.0-99.0The [facility] HospitalComment on above:Performed By: #### CBC ####[facility] Qysnpjoasd102[address] [place], [place] [address]DrMaris Calloway #0.6 103/ulNormal0.3-0.8The [facility] HospitalComment on above: Performed By: #### CBC ####[facility] Jyyfcukyhi757[address] [place], [place] [address]DrGonzalo SureshMonocytes/100 WBC (Bld)5.8 %Normal 1.7-12.0The [facility] HospitalComment on above:Performed By: #### CBC ####[facility] Kzskvrcsuz055[address] [place], [place] [address]DrMaris Taylor #6.7 103/ulCritically high1.4-6.5The [facility] HospitalComment on above:Performed By: #### CBC ####[facility] Sbuqbibxxa110[address] [place], [place] [address]Dr.Yilan ChangNeutrophils/100 WBC (Bld)64.6 %Normal 43.0-75.0The [facility] HospitalComment on above:Performed By: #### CBC ####[facility] Upyzobchez[address] [place] [address]Dr. Devin SureshPlatelet mean volume (Bld) [Entitic vol]8.7 fLCritically low9.5-13.5 The [facility]ers HospitalComment on above:Performed By: #### CBC ####[facility] Tcvmemqfuu716[address] [place], [place] [address]Dr.Tishemily DcmubQLF403 103/dnNxarzf066-254Hje [facility] HospitalComment on above:Performed By: #### CBC ####[facility] Xoxzvifqve6685[address] [place], [place] [address]Dr. Devin SureshRBC4.60 106/ulNormal4.20-5.40The [facility]ers HospitalComment on above: Performed By: #### CBC ####[facility] Yxsdjpqwvp355[address] [place], [place] [address]Dr.Devin SureshWBC10.3 103/ulNormal4.0-11.0The [facility] HospitalComment on above:Performed By: #### CBC ####[facility] Pekfqckxzt764[address] [place], [place] [address]Dr.Devin SureshCT HEAD WO CON on 30-87-9263NB HEAD WO CONNormalMemorial Health System Marietta Memorial HospitalLACTATE/LACTIC ACIDon 93-67-7640Ichbewz [Moles/Vol]1.9 mmol/LNormal0.4-1.9The [facility] HospitalComment on above:Performed By: #### LACT ####[facility] Khwttgeods[address] [place], [place] [address]Dr. Devin SureshKNICKERBOCKER OF CARE GLUCOSEon 06-11-2022 Glucose [Mass/Vol]245 mg/dLCritically iipg52-606Kvo [facility] HospitalComment on above:Performed By: #### POCGLUC ####[facility] Keuujievqu[address] [place], [place] [address]Dr. Devin SureshPROF 14(COMP METB)on 22-16-4307Qeonbde [Mass/Vol]3.7 g/dLNormal3.4-5.0The [facility] HospitalComment on above:Performed By: #### CMP, HSTROPN ####[facility] Poqrphfrsk[address] [place] [address]Dr. Yilan ChangAlbumin/Globulin [Mass ratio]1.0 {ratio} NormalThe [facility]riners HospitalComment on above:Performed By: #### CMP, HSTROPN ####[facility] Grnaglkfen[address] [place] [address]Dr. Yilan ChangALP [Catalytic activity/Vol]123 U/LCritically beph60-739Csn [facility] HospitalComment on above:Performed By: #### CMP, HSTROPN ####[facility] Stbxhsyshv3[address] [place] [address]Dr. Yilan ChangALT [Catalytic activity/Vol]15 U/DMnkijw92-49Wih [facility] HospitalComment on above:Performed By: #### CMP, HSTROPN ####[facility] Stgwodkzsc2[address] [place] [address]Dr. Yilan ChangAnion gap [Moles/Vol]12.7 mmol/LNormal The [facility] HospitalComment on above:Performed By: #### CMP, HSTROPN ####[facility] Kmbuaxaulf9304 [place] [address]Dr. Yilan ChangAST [Catalytic activity/Vol]11 U/LCritically yck70-83Kat [facility] HospitalComment on above:Performed By: #### CMP, HSTROPN ####[facility] Jjrdbztidt[address] [place], [place] [address]Dr. Yilan ChangBilirubin [Mass/Vol]0.4 mg/dLNormal0.2-1.0The [facility] HospitalComment on above:Performed By: #### CMP, HSTROPN ####[facility] Nndodtlccr[address] [place], [place] [address]Dr. Yilan ChangCalcium [Mass/Vol]9.5 mg/dLNormal 8.5-10.1The [facility] HospitalComment on above:Performed By: #### CMP, HSTROPN ####[facility] Alylkgvqno5[address] [place] [address]Dr. Yilan ChangChloride [Moles/Vol]105 mmol/XKljmly36-700Jsd [facility] Comment on above:Performed By: #### CMP, HSTROPN ####[facility] Pxmodinufa216[address] [place], [place] [address]Dr. Yilan ChangCO2 [Moles/Vol] 27.5 mmol/YYjmfmx40.0-32.0The [facility] HospitalComment on above:Performed By: #### CMP, HSTROPN ####[facility] Doehhkkgbm295[address] [place], [place] [address]Dr. Yilan ChangCreatinine [Mass/Vol]0.83 mg/dLNormal0.55-1.02The [facility] HospitalComment on above:Performed By: #### CMP, HSTROPN ####[facility] Wsngrxpyan9[address] [place], [place] [address]Dr. Yilan ChangEGFR- AF LEBANESE>60Normal>=60The [facility] HospitalComment on above:Performed By: #### CMP, HSTROPN ####[facility] Llvvwkyais380[address] [place], [place] [address]Dr. Yilan ChangEGFR-NON AF LEBANESE>60Normal>=60The [facility] Comment on above:Performed By: #### CMP, HSTROPN ####[facility] Radyxgdwca84[address] [place], [place] [address]Dr. Yilan ChangGlobulin (S) [Mass/Vol]3.7 g/dLNormalThe [facility] HospitalComment on above:Performed By: #### CMP, HSTROPN ####[facility] Vpqgdxdetw4[address] [place] [address]Dr. Yilan ChangGlucose [Mass/Vol]66 mg/dLCritically kev74-522Jmg [facility] HospitalComment on above:Performed By: #### CMP, HSTROPN ####[facility] Mhdnzuztll[address] [place], [place]Dr. Yilan Suresh Potassium [Moles/Vol]3.2 mmol/LCritically low3.5-5.1The [facility] HospitalComment on above:Performed By: #### CMP, HSTROPN ####[facility] Adwdyppmnq2546 [place] [address]Dr. Yilan ChangProtein [Mass/Vol]7.4 g/dL Normal6.4-8.2The [facility] HospitalComment on above:Performed By: #### CMP, HSTROPN ####[facility] Xfwqvqqrxp[address] [place] [address]Dr. Yilan ChangSodium [Moles/Vol]142 mmol/KNlbvuc369-356Jvm [facility] HospitalComment on above:Performed By: #### CMP, HSTROPN ####[facility] Bhhvhrpota4545 [address] Yilan ChangUrea nitrogen [Mass/Vol]15.0 mg/dLNormal7.0-18.0The [facility] HospitalComment on above: Performed By: #### CMP, HSTROPN ####[facility] Tckigwewfu[address] [place], [place] [address]r. Yilan ChangUrea nitrogen/Creatinine [Mass ratio] 18.1 mg/mgNormalThe [facility] HospitalComment on above:Performed By: #### CMP, HSTROPN ####[facility] Frwkasrika46[address] [place], [place] [address]Dr. Yilan ChangTROPONIN, HIGH SENSITIVITYon 67-84-2054TJPRAS8.5 pg/mLNormal 4.0-51.3The [facility] HospitalComcovenant medical center on above:Result Comment: CUT-OFF POINTS HAVE BEEN ESTABLISHED BASED ON THE FOURTH UNIVERSAL DEFINITIONS OF MY OCARDIALINFARCTION. THE UPPER REFERENCE LIMIT (URL) OF TROPONIN, DEFINED THE 99TH PERCENTILE OFcTnI DISTRIBUTION IN A REFERENCE POPULATION, HAS BEEN CONFIRMED THE DECISION THRESHOLDFOR [place] DIAGNOSIS.Performed By: #### HSTROPN ####[facility] Tnkhynqiga[address] [place], [place] [address]Sb. Devin SureshHSTROP5.1 pg/mLNormal4.0-51.3The [facility] HospitalComment on above: Result Comment: CUT-OFF POINTS HAVE BEEN ESTABLISHED BASED ON THE FOURTH UNIVERSAL DEFINITIONS OF MYOCARDIALINFARCTION. THE UPPER REFERENCE LIMIT (URL) OF TROPONIN, DEFINED THE 99TH PERCENTILE OFcTnI DISTRIBUTION IN A REFERENCE POPULATION, HAS BEEN CONFIRMED THE DECISION THRESHOLDFOR [place] DIAGNOSIS. Performed By: #### CMP, HSTROPN ####[facility] Lcxgnjgzbi040[address] [place], [place]Dr. Devin SureshXR CHEST 1 Von 22-93-7656VM CHEST 1 V NormalThe [facility]ers HospitalCHEMISTRYOrdered By: Lab ROPUser on 31-23-4237Yghttjb [Mass/Vol]269 mg/lBSduo93 - 99 mg/dLFTMC POC SubsectionComment on above:Result Comment: Notified RN/MDPOC Device [id number] Interpretation CodeFTMC POC SubsectionPOC User [id number] Interpretation CodeFTMC POC Subsection POC UsernameMURRAY, EMILYInvalid Interpretation CodeFTMC POC SubsectionGlucose [Mass/Vol]378 mg/tPJdpx06 - 99 mg/dLFTMC POC SubsectionComment on above:Result Comment: Cleaned MeterPOC Device [id number] Interpretation CodeFTMC POC SubsectionPOC User [id number] Interpretation CodeFTMC POC Subsection POC UsernameMETRO, RACHELLEInvalid Interpretation CodeFTMC POC SubsectionGlucose [Mass/Vol]492 mg/dLInvalid Interpretation Code55 - 99 mg/dLFTMC POC Subsection POC Device [id number] Interpretation CodeFTMC POC SubsectionPOC User [id number] Interpretation CodeFTMC POC SubsectionPOC UsernameUHEIDY LOPEZInvalid Interpretation CodeFTMC POC SubsectionCHEMISTRYOrdered By: SYSTEM SYSTEM on 74-31-5573Lrpdfiz [Mass/Vol]3.8 g/dLNormal3.3 - 5.0 gm/dLFTMC Remisol Albumin/Globulin [...] mg/dL Normal8.9 - 11.1 mg/dLFTMC RemisolChloride [Moles/Vol]94 mmol/NTec722 - 111 mmol/LFTMC RemisolCO2 [Moles/Vol]24 mmol/OVseuen80 - 31 mmol/LFTMC Remisol Creatinine [Mass/Vol]0.8 mg/dLNormal0.5 - 1.3 mg/dLFTMC RemisolGFR/1.73 sq M.predicted among blacks MDRD (S/P/Bld) [Vol rate/Area]mL/min/1.73 m8Oapmyn >=59mL/min/1.73 m2FT[facility] Chem SGFR/1.73 sq M.predicted among non-blacks MDRD (S/P/Bld) [Vol rate/Area]mL/min/1.73 c3Sxgzyt>=59mL/min/1.73 m2[facility] Chem S Globulin (S) [Mass/Vol]3.5 g/dLNormal1.4 - 4.0 gm/dLFTMC RemisolGlucose [Mass/Vol]484 mg/dLInvalid Interpretation Code55 - 199 mg/dLFTMC RemisolComment on above:Result Comment: Critical Result verified by repeat analysis\Critical Result [id number] Called to ELVIS DUNN AT by GLYNN BRYANT And Read Back For Confirmation at: 06/02/2022 17:16:15Lipase [Catalytic activity/Vol]27 U/L Evxdgp68 - 58 unit/LFTMC RemisolPotassium [Moles/Vol]4.0 mmol/LNormal3.5 - 5.3 mmol/LFTMC RemisolProtein [Mass/Vol]7.3 g/dLNormal6.0 - 7.8 gm/dLFTMC Remisol Sodium [Moles/Vol]129 mmol/QKya932 - 145 mmol/LFTMC RemisolUrea nitrogen [Mass/Vol]16 mg/dLNormal5 - 21 mg/dLFTMC RemisolUrea nitrogen/Creatinine [Mass ratio]20 mg/ukWsouzn44 - 20FT[facility] RemisolCOAGULATIONOrdered By: Breanna Hammond on 31-32-4259wKMG Coag (PPP) [Time]62.6 sHigh25.1 - 36.5 second(s)[facility] Auto CoagINR Coag (PPP) [Relative time]1.0 {INR}Invalid Interpretation CodeFTMC Auto CoagPT Coag (PPP) [Time]11.5 sNormal9.4 - 12.5 second(s)[facility] Auto CoagHEMATOLOGYOrdered By: SYSTEM SYSTEM on 37-85-2840Sushmngha/100 WBC (Bld)0.7 %Normal0.0 - 2.0 % [facility] HemeAutoSSBasophils/Leukocytes Auto (Bld) [Pure # fraction]0.1 E9/LNormal 0.0 - 0.2 E9/LFTMC HemeAutoSSEosinophils/100 WBC (Bld)1.6 %Normal0.0 - 8.0 %[facility] HemeAutoSSEosinophils/Leukocytes Auto (Bld) [Pure # fraction]0.1 E9/LNormal0.0 - 0.5 E9/LFTMC HemeAutoSSLymphocytes/100 WBC (Bld)19.7 %Tohlrn02.0 - 50.0 %[facility] HemeAutoSSLymphocytes/Leukocytes Auto (Bld) [Pure # fraction]1.6 E9/LNormal1.0 - 4.0 E9/LFTMC HemeAutoSSMonocytes/100 WBC (Bld)5.7 %Normal4.0 - 14.0 %[facility] HemeAutoSSMonocytes/Leukocytes Auto (Bld) [Pure # fraction]0.5 E9/LNormal0.2 - 1.0 E9/LFTMC HemeAutoSSNeutrophils/100 WBC (Bld)72.3 %Utakxi09.0 - 75.0 %[facility] HemeAutoSSNeutrophils/Leukocytes Auto (Bld) [Pure # fraction]5.8 E9/LNormal2.0 - 7.5 E9/LFTMC HemeAutoSSHEMATOLOGYOrdered By: Karen Murphy on 06-02-2022 Erythrocyte distribution width (RBC) [Ratio]13.4 %Sjcmbz49.9 - 14.2 %[facility] HemeAutoSSHematocrit (Bld) [Volume fraction]37.8 %Vtfdlf90.0 - 46.0 %[facility] HemeAutoSSHemoglobin (Bld) [Mass/Vol]12.8 g/iOXhkvmk54.0 - 16.0 gm/dLFTMC HemeAutoSSMCH (RBC) [Entitic mass]30.3 eoLugmig85.0 - 34.0 pgFTMC HemeAutoSSMCHC (RBC) [Mass/Vol]33.9 g/kNKjveyp22.4 - 36.0 gm/dLFTMC HemeAutoSSMCV (RBC) [Entitic vol]89.2 sDLrkvmd08.0 - 100.0 fLFTMC HemeAutoSSPlatelet mean volume (Bld) [Entitic vol]7.3 fLNormal6.4 - 10.8 fLFTMC HemeAutoSSPlatelets (Bld) [#/Vol]281.0 E9/YBdffbg321.0 - 500.0 E9/LFTMC HemeAutoSSRBC (Bld) [#/Vol]4.2 E12/LLow4.3 - 5.9 E12/LFTMC HemeAutoSSWBC corrected for nucl RBC Auto (Bld) [#/Vol]8.0 E9/LNormal4.0 - 11.0 E9/LFTMC HemeAutoSSURINALYSISOrdered By: Gigi Morrison on 61-65-5186Mlwbqoca LM Ql (Urine sed)Trace /HPFNormalTrace/HPFFTMC UA Auto [...] 6:10 PM)Invalid Interpretation CodeNegativeFTMC UA Auto SS [place].plasma/[place].RBC (Bld) [Mass ratio]0-3 /HPFNormal0-3/HPFFTMC UA Auto SSNitrite Ql (U)Negative (06/02/22 6:10 PM)NormalNegativeFT UA Auto SSpH (U)5.5 *NA* (06/02/22 6:10 PM)Invalid Interpretation Code5.0 - 9.0FTMC UA Auto SSProtein (U) [Mass/Vol]Negative (06/02/22 6:10 PM)NormalNegativeFTMC UA Auto SSSpecific gravity (U) [Rel density] 1.010 *NA* (06/02/22 6:10 PM)Invalid Interpretation Code1.005 - 1.030FTMC UA Auto SSUA Spec DescClean Catch (06/02/22 6:10 PM)NormalFTMC UA Auto SSUrobilinogen Qn (U)0.5249627 {Shyela'U}/dL Normal0.0 - 1.0 EU/dLLINDSAY MUN[facility]IP[facility] [place] UA Auto SSWBC Auto Ql (U)Negative (06/02/22 6:10 PM)NormalNegativeLINDSA[facility] [place] UA Auto SSWBC LM.HPF (Urine sed) [#/Area]0-5 /HPFNormal0-5/HPFLINDSAY M[facility]IPAL [facility] [place] UA Auto SSYeast LM Ql (Urine sed)Trace (06/02/22 6:10 PM)NormalLINDSAY M[facility]IP[facility] [place] UA Auto SSCULTURE URINEon 53-28-6311FXJTXMX URINE NormalThe [facility]ers HospitalComment on above:Performed By: #### URCX ####[facility] Zxdpminyau[address] [place], [place] [address]Dr. Devin Suresh POINT OF CARE GLUCOSEon 65-01-6768Ksdijud [Mass/Vol]359 mg/dLCritically high 74-106The [facility] HospitalComment on above:Performed By: #### POCGLUC ####[facility] Qjzdbtbrlf67[address] [place], [place] [address]Dr. Tishemily KerwinAMYLASEon 18-70-9900Uikhpqw [Catalytic activity/Vol]15 U/LCritically giu95-334Gcb [facility] HospitalComment on above:Performed By: #### RADHA DELGADO, CMP ####[facility] Ikgkwwsyhu69[address] [place], [place] [address]Dr. Devin SureshCBC AUTO DIFFon 38-75-3979EZSQ #0.0 103/ulNormal0.0-0.1The [facility] HospitalComment on above:Performed By: #### CBC ####[facility] Iygzzvyhke154[address] [place], [place] [address]Dr.Tishemily KerwinBasophils/100 WBC (Bld)0.2 %Normal0.2-2.0The [facility] HospitalComment on above:Performed By: #### CBC ####[facility] Boyztqlknh7[address] [place], [place] [address]Dr.Devin ChangEO #0.1 103/ulNormal0.0-0.7The [facility] HospitalComment on above:Performed By: #### CBC ####[facility] Dqrcttyein[address] [place] [address]Dr.Tishlan ChangEosinophils/100 WBC (Bld)0.7 %Critically low0.9-7.0The [facility] HospitalComment on above:Performed By: #### CBC ####[facility] Cgxqqkqmtc[address] [place], [place] [address]Dr. Yilan ChangErythrocyte distribution width (RBC) [Ratio]12.7 %Ywpfpu47.0-15.0The [facility] HospitalComment on above:Performed By: #### CBC ####[facility] Rbmvmlpprv8[address] [place], [place] [address]Dr.Yilan ChangHematocrit (Bld) [Volume fraction]34.7 %Critically low36.0-48.0The [facility] HospitalComment on above:Performed By: #### CBC ####[facility] Xoeedxdorn390[address] [place], [place] [address]Dr.Tishlan ChangHemoglobin (Bld) [Mass/Vol]12.1 g/dL Wguzbq61.0-16.0The [facility] HospitalComment on above:Performed By: #### CBC ####[facility] [address]cnnfvmqsl74[address] [place], [place] [address]Dr. Yilan ChangIG #0.05 10e3/ulCritically high0.00-0.03The [facility] HospitalComment on above:Performed By: #### CBC ####[facility] Rxgyxsvdht[address] [place], [place] [address]Dr.Yilan ChangIG %0.4 %Normal0.0-0.5The [facility] HospitalComcovenant medical center on above:Performed By: #### CBC ####[facility] Qoikqmndrz254[address] [place], [place] [address]Dr.Yilan ChangLYMPH #0.3 103/ulCritically low1.2-3.8The [facility] HospitalComment on above:Performed By: #### CBC ####[facility] Sxkhrxksly[address] [place], [place] [address]Dr.Yilan ChangLymphocytes/100 WBC (Bld)2.6 %Critically low20.5-60.0The [facility] HospitalComment on above:Performed By: #### CBC ####[facility] Msuzejhcmo23[address] [place] [address]Dr.Devin SureshMANUAL DIFF REQ NONormalThe [facility] HospitalComment on above:Performed By: #### CBC ####[facility] Koctpejadp[address] [place], [place] [address]Dr. Devin SureshH (RBC) [Entitic mass]30.6 hkAwhkpt71.7-34.0The [facility] Comment on above:Performed By: #### CBC ####[facility] Kndqozpqwk[address] [place], [place] [address]Dr.Tishemily SureshHC (RBC) [Mass/Vol]34.9 g/dL Xbtcky11.9-35.2The [facility] HospitalComment on above:Performed By: #### CBC ####[facility] [address]jwxzdryjw30[address] [place], [place] [address]Dr. Devin SureshV (RBC) [Entitic vol]87.6 iLAyejvy29.0-99.0The [facility] Comment on above:Performed By: #### CBC ####[facility] Ygbcdphtod[address] [place], [place] [address]Dr.Devin SureshMONO #0.3 103/ulNormal0.3-0.8 [facility] HospitalComment on above:Performed By: #### CBC ####[facility] Eeeicpjbgj[address] [place], [place] [address]Dr.Devin Suresh Monocytes/100 WBC (Bld)2.5 %Normal1.7-12.0The [facility] HospitalComment on above: Performed By: #### CBC ####[facility] Syrqzlwcse[address] [place], [place] [address]DrGonzalo SureshNEUT #11.9 103/ulCritically high1.4-6.5 The [facility]ers HospitalComment on above:Performed By: #### CBC ####[facility] Bjevevaszg[address] [place], [place] [address]Dr.Devin Suresh Neutrophils/100 WBC (Bld)93.6 %Critically high43.0-75.0The [facility] Comment on above:Performed By: #### CBC ####[facility] Nqukmbnapf[address] [place] [address]Dr.Devin SureshPlatelet mean volume (Bld) [Entitic vol]9.2 fLCritically low9.5-13.5The [facility] HospitalComment on above: Performed By: #### CBC ####[facility] Ndoslaklcx5[address] [place] [address]Dr.Devin RllbyLVU537 103/gbCjzfmd734-697Ztz [facility] HospitalComment on above:Performed By: #### CBC ####[facility] Rsbuoydxcb4[address] [place] [address]Dr.Devin SureshRBC3.96 106/ul Critically low4.20-5.40The [facility] HospitalComment on above:Performed By: #### CBC ####[facility] Dbmemyjvcg93[address] [place], [place] [address]Dr. Devin SureshWBC12.8 103/ulCritically high4.0-11.0The [facility] HospitalComment on above:Performed By: #### CBC ####[facility] [address]rrmgzyapf[address] [place], [place] [address]Dr.Devin SureshCovid-19 PCR ([facility])on 04-20-2022 SARS-CoV-2 (COVID-19) RNA EBONIE+probe Ql (Unsp spec)Not detectedNormalNOT DETECTED The [facility]ers HospitalComment on above:Result Comment: When diagnostic testing is [...] for this test is supported by the [place] of Health and Human Service's declaration that [...] no longer be used).Performed By: #### CVDTBH ####[facility] Actndmylab[address] [place] [id number]. Yilan ChangER URINE PROFILEon [id number] Ql (U)NegativeNormalNEGATIVEMemorial Health System [facility] Comment on above:Performed By: #### MERCEDEZ UMICRO ####[facility] [address] [id number]. Yilan ChangClarity (U) CLEARNormalCLEARMemorial Health System Marietta Memorial HospitalComment on above:Performed By: #### MERCEDEZ UMICRO ####[facility] [address] [place], [place] [address]Dr. Yilan ChangColor (U)LT. YELLOWNormalYELLOWMemorial Health System Marietta Memorial HospitalComment on above:Performed By: #### MERCEDEZ UMICRO ####[facility] [address] [place], [place] [id number]. Devin ChangEMARLYAHDA micrscopic examination will be performed if indicated.NormalThe [facility] Shriners HospitalComment on above: Performed By: #### MERCEDEZ UMICRO ####[facility] [address] [place], [place] [id number]. Yilan ChangGlucose Ql (U)>1000AbnormalNEGATIVEMemorial Health System Marietta Memorial HospitalComment on above:Performed By: #### MERCEDEZ UMICRO ####[facility] [address] [id number]. Yilan Suresh Hemoglobin Ql (U)TRACE-INTACTAbnormalNEGATIVEMemorial Health System Marietta Memorial HospitalComment on above:Performed By: #### MERCEDEZ, UMICRO ####[facility] [address] [id number]. Yilan ChangKetones Ql (U)TRACEAbnormalNEGATIVE [facility] HospitalComment on above:Performed By: #### MERCEDEZ UMICRO ####[facility] [address] [id number]. Devin ChangLEUKOCYTESNegativeNormalNEGATIVEThe [facility]riners HospitalComment on above:Performed By: #### MERCEDEZ UMICRO ####[facility] [address] [place] [id number]. Devin SureshNitrite Ql (U)PositiveAbnormal NEGATIVEThe Livonia HospitalComment on above:Performed By: #### MERCEDEZ UMICRO ####[facility] Gftkogyyys[address] [place] [phone]. Devin ChangpH (U)5.0 [pH]Normal5-9The [facility] HospitalComment on above: Performed By: #### MERCEDEZ UMICRO ####[facility] Atevtjykad[address] [place] [id number]. Devin SureshSPEC GRAVITY1.781Ppjldl7.005-<=1.025The [facility]ers HospitalComment on above:Performed By: #### MERCEDEZ ICRO ####[facility] Xzaorzessj[address] [place] [address]Dr. Devin SureshUA PROTEINNegativeNormalNEGATIVE/ TRACEThe [facility] HospitalComment on above: Performed By: #### MERCEDEZ UMICRO ####[facility] Fqbqeuybwu47[address] [place] [phone]. Devin SureshUR MICRO INDINDICATEDNormalThe [facility] HospitalComment on above:Performed By: #### MERCEDEZ UMICRO ####[facility] Ldcmbqfzxv4197 [place] [phone]. Devin SureshUrobilinogen Qn (U)0.2 {Sheyla'U}/dLNormal0.2 - 1.0The [facility] HospitalComment on above: Performed By: #### MERCEDEZ UMICRO ####[facility] Sqpbapcbhh[address] [place] [address]Dr. Devin SureshINFLUENZA A AND B AGon 04-20-2022 INFLUENZA A AGNegativeNormalNEGATIVE SEE COMMENTThe [facility] on above:Performed By: #### RSV, INFLUAB ####[facility] [address] [place], [place] [id number]. Devin SureshINFLUENZA B AGNegativeNormal NEGATIVE SEE COMMENTThe [facility] on above:Performed By: #### RSV, INFLUAB ####[facility] Usvgbcfsmu[address] [place], [place] [address]Dr. Devin SureshINFLUPOSHSEE [facility] CenterComcovenant [facility] on above:Result Comment: NOTE: Live attenuated influenzae vaccine viruses can cause a positive result for a rapid influenza diagnostic test if administered up to 7 days prior to rapid testing.Performed By: #### RSV, INFLUAB ####[facility] Mkaxxtkrqz[address] [place], [place] [address]r. Devin Suresh INFLUPOSHBSEE [facility] on above:Result Comment: NOTE: Live attenuated influenzae vaccine viruses can cause a positive result for a rapid influenza diagnostic test if administered up to 7 days prior to rapid testing.Performed By: #### RSV, INFLUAB ####[facility] Tawkugaauz[address] [place], [place] [address]r. Devin SureshINTERNAL CONTROLSWithin Normal LimitsNormalWithin Normal LimitsThe [facility] on above:Performed By: #### RSV, INFLUAB ####[facility] Pydzuibyfg[address] [place], [place] [address]r. Devin SureshLACTATE/LACTIC ACIDon 02-83-3548Siazdyu [Moles/Vol]1.9 mmol/LNormal0.4-1.9The [facility] Hospitalment on above: Performed By: #### LACT ####[facility] Bgrqcclwmb[address] [place], [place] [address]Dr. Devin SureshLIPASEon 73-38-4631Swuvih [Catalytic activity/Vol]111.0 U/REamofm91.0-393.0The [facility] HospitalComment on above: Performed By: #### LIPA, RADHA, CMP ####[facility] Esettrtgmm37[address] [place] [address]Dr. Devin SureshPOINT OF CARE GLUCOSEon 04-20-2022 Glucose [Mass/Vol]573 mg/dLCritically atvq41-760Jut [facility] HospitalComcovenant medical center on above:Result Comment: Lab Draw OrderedPerformed By: #### POCGLUC ####[facility] Wxetkxylnd67[address] [place] [address]Dr. Devin SureshPROF 14(COMP METB)on 16-27-4918Gdrdhll [Mass/Vol]3.4 g/dLNormal3.4-5.0The [facility] HospitalComment on above:Performed By: #### RADHA DELGADO, CMP ####[facility] Wapusgvqqy7[address] [place] [address]Dr. Devin Suresh Albumin/Globulin [Mass ratio]0.9 {ratio}NormalThe [facility] HospitalComcovenant medical center on above:Performed By: #### RADHA DELGADO, CMP ####[facility] Ghkpjrjlcg88[address] [place] [address]Dr. Devin SureshALP [Catalytic activity/Vol] 132 U/LCritically rbgx80-880Hym [facility] HospitalComcovenant medical center on above:Performed By: #### RADHA DELGADO, CMP ####[facility] Grlbcrodee6[address] [place] [address]Dr. Devin SureshALT [Catalytic activity/Vol]16 U/L Gudlvr15-92Hku [facility] HospitalComcovenant medical center on above:Performed By: #### RADHA DELGADO, CMP ####[facility] Sdvdrjcgqg9945 [place] [address]Dr. Devin SureshAnion gap [Moles/Vol]12.3 mmol/LNormalThe [facility] HospitalComment on above:Performed By: #### RADHA DELGADO, CMP ####[facility] Patfayvqvs[address] [place], [place] [address]Dr. Devin ChangAST [Catalytic activity/Vol]9 U/LCritically qtn86-22Wzp [facility] HospitalComment on above:Performed By: #### RADHA DELGADO, CMP ####[facility] Upfhbzkgja6858 [place] [address]Dr. Yilan ChangBilirubin [Mass/Vol]0.9 mg/dLNormal0.2-1.0The [facility] HospitalComment on above:Performed By: #### RADHA DELGADO, CMP ####[facility] Ejhcnozekc6523 [place] [address]Dr. Yilan ChangCalcium [Mass/Vol]9.0 mg/dLNormal8.5-10.1The [facility] HospitalComment on above:Performed By: #### RADHA DELGADO, CMP ####[facility] Tfzcovnhit[address] [place], [place] [address]Dr. Yilan ChangChloride [Moles/Vol]96 mmol/LCritically roy25-482Rxb [facility] HospitalComment on above:Performed By: #### RADHA DELGADO, CMP ####[facility] Yqpuyuffyf[address] [place], [place] [address]Dr. Yilan ChangCO2 [Moles/Vol]26.0 mmol/AKjbbnr70.0-32.0The [facility] Comment on above:Performed By: #### RADHA DELGADO, CMP ####[facility] Jkepppzrgs[address] [place], [place] [address]Dr. Yilan ChangCreatinine [Mass/Vol]1.15 mg/dLCritically high0.55-1.02The [facility] HospitalComment on above:Performed By: #### RADHA DELGADO, CMP ####[facility] Aypgkyjpqf[address] [place], [place] [address]Dr. Yilan ChangEGFR-AF LEBANESE>60Normal>=60 The [facility]ers HospitalComment on above:Performed By: #### RADHA DELGADO, CMP ####[facility] Idtffodvua42[address] [place], [place] [address]Dr. Yilan ChangEGFR-NON AF WWFSOVSB36 mL/min/1.40k5Dcwssmuiai low>=60The [facility] HospitalComment on above:Performed By: #### RADHA DELGADO, CMP ####[facility] Hradzkjozr464[address] [place], [place] [address]Dr. Yilan ChangGlobulin (S) [Mass/Vol]3.7 g/dLNoMary Rutan HospitalComment on above:Performed By: #### RADHA DELGADO, CMP ####[facility] Vuykjeqgme6276 [place] [address]Dr. Yilan ChangGlucose [Mass/Vol]590 mg/dLCritically plfe79-425Fiw [facility] HospitalComment on above:Performed By: #### RADHA DELGADO, CMP ####[facility] Qmxuukxnut1273 [place] [address]Dr. Tishlan Suresh Potassium [Moles/Vol]4.3 mmol/LNormal3.5-5.1The [facility] HospitalComment on above:Performed By: #### RADHA DELGADO, CMP ####[facility] Vabuwqedvk9400 [place] [address]Dr. Yilan ChangProtein [Mass/Vol]7.1 g/dL Normal6.4-8.2The [facility] HospitalComment on above:Performed By: #### RADHA DELGADO, CMP ####[facility] Rnsqugavnb0112 [place] [address]Dr. Yilan ChangSodium [Moles/Vol]130 mmol/LCritically rtr699-109Nif [facility] Hospitalment on above:Performed By: #### RADHA DELGADO, CMP ####[facility] Labmuolulb4954 [place] [address]Dr. Yilan ChangUrea nitrogen [Mass/Vol]22.0 mg/dLCritically high7.0-18.0The [facility] Comment on above:Performed By: #### RADHA DELGADO, CMP ####[facility] Yfxnmpujog6073 [place] [address]Dr. Yilan ChangUrea nitrogen/Creatinine [Mass ratio]19.1 mg/mgNoMary Rutan HospitalComment on above:Performed By: #### RADHA DELGADO, CMP ####[facility] Uvrarpobwq5870 [place] [address]Dr. Devin SureshRSVon 06-08-7820PQZ AG NegativeNormalNEGATIVEThe [facility] on above:Performed By: #### RSV, INFLUAB ####[facility] Tkfcariwgs[address] [place], [place] [address]Dr. Devin SureshURINE MICROSCOPIC ONLYon 69-08-5517SRFIFMCCRTANMRSSXqyyvibd NONE SEENThe [facility] HospitalComcovenant medical center on above:Performed By: #### MERCEDEZ UMICRO ####[facility] Ylbfhonzqw5518 [place] [address]Dr. Devin SureshBacteria identified Cx Nom (U)INDICATEDAdams County Hospital Comment on above:Performed By: #### MERCEDEZ UMICRO ####[facility] Xzpywkwqhi0135 [address] Devin SureshCASTNONE SEEN NormalNONE SEENUC Health on above:Performed By: #### MERCEDEZ UMICRO ####[facility] Ojtgusfnne[address] [place], [place] [address]Dr. Devin SureshCrystals LM Nom (Urine sed)NONE SEENNormalNONE SEENUC Health on above:Performed By: #### MERCEDEZ UMICRO ####[facility] Xesnycmusd[address] [place], [place] [address]r. Devin Suresh Epithelial cells LM Ql (Urine sed)RAREHarry S. Truman Memorial Veterans' HospitalE SEEN /RAREMemorial [facility] Comment on above:Performed By: #### MERCEDEZ UMICRO ####[facility] Tszxgprxxy[address] [place], [place] [address]r. Devin SureshMUCOUSNONE SEEN NormalNONE SEENMemorial Health System [facility] Memorial HospitalComcovenant medical center on above:Performed By: #### MERCEDEZ UMICRO ####[facility] Nhmxqhfbkx[address] [place], [place] [address]Dr. Devin SureshRBCNONE SEENAbnormal0-2The [facility] HospitalComcovenant medical center on above:Performed By: #### MERCEDEZ UMICRO ####[facility] Mzcoeaphro[address] [place], [place] [address]Dr. Devin SureshWBC2-5AbnormalNONE SEENThe [facility] Kay HospitalComment on above:Performed By: #### CHUCKY NEWSOME ####[facility] Ouwfaecrfw9347 [place], [place]Dr. Devin SureshXR CHEST 2 Von 15-75-7640WL CHEST 2 VNSCCI Hospital LimaCHEMISTRYOrdered By: Lab Pop on 99-92-4242Nmzyemz [Mass/Vol]105 mg/wVWzur67 - 99 mg/dLFTMC POC SubsectionComment on above:Result Comment: Notified RN/MDPOC Device SN [id number] Interpretation CodeFTMC POC SubsectionPOC User [id number] Invalid Interpretation CodeFTMC POC SubsectionPOC UsernameBiemler, Michi Invalid Interpretation CodeFTMC POC SubsectionGlucose [Mass/Vol]50 mg/dLLow55 - 99 mg/dLFTMC POC SubsectionComment on above:Result Comment: Notified RN/MDPOC Device [id number] Interpretation CodeFTMC POC SubsectionPOC User ID [id number] Interpretation CodeFTMC POC SubsectionPOC UsernameBiemler, MelissaInvalid Interpretation CodeFTMC POC SubsectionGlucose [Mass/Vol]53 mg/dL Low55 - 99 mg/dLFTMC POC SubsectionComment on above:Result Comment: Notified RN/MDPOC Device [id number] Interpretation CodeFTMC POC SubsectionPOC User [id number] Interpretation CodeFTMC POC SubsectionPOC Username Julietaler, MelissaInvalid Interpretation CodeFTMC POC SubsectionCHEMISTRYOrdered By: SYSTEM SYSTEM on 75-14-1786Tpdzx gap [Moles/Vol]4 mmol/LLow6 - 16 mEq/LFTMC RemisolCalcium [Mass/Vol]8.5 mg/dLLow8.9 - 11.1 mg/dLFTMC RemisolChloride [Moles/Vol]112 mmol/TGhnw637 - 111 mmol/LFTMC RemisolCO2 [Moles/Vol]25 mmol/L Jeejdn33 - 31 mmol/LFTMC RemisolCreatinine [Mass/Vol]1.1 mg/dLNormal0.5 - 1.3 mg/dLFTMC RemisolGFR/1.73 sq M.predicted among blacks MDRD (S/P/Bld) [Vol rate/Area]mL/min/1.73 j4Tbacwu>=59mL/min/1.73 m2FTMC Chem SGFR/1.73 sq M.predicted among non-blacks MDRD (S/P/Bld) [Vol rate/Area]54 mL/min/1.73 m2Low >=59mL/min/1.73 m2FTMC Chem SGlucose [Mass/Vol]122 mg/dYTsjkqe35 - 199 mg/dLFTMC RemisolMagnesium [Mass/Vol]2.6 mg/dLHigh1.3 - 2.4 mg/dLFTMC RemisolPotassium [Moles/Vol]3.7 mmol/LNormal3.5 - 5.3 mmol/LFTMC RemisolSodium [Moles/Vol]137 mmol/ZIwzpnt631 - 145 mmol/LFTMC RemisolUrea nitrogen [Mass/Vol]27 mg/dLHigh5 - 21 mg/dLFTMC RemisolUrea nitrogen/Creatinine [Mass ratio]24 mg/xgUxdh38 - 20FTMC RemisolCHEMISTRYOrdered By: SYSTEM SYSTEM on 16-38-2867Icvpu gap [Moles/Vol]11 mmol/LNormal6 - 16 mEq/LFTMC RemisolCalcium [Mass/Vol]8.8 mg/dLLow8.9 - 11.1 mg/dLFTMC RemisolChloride [Moles/Vol]102 mmol/QCgknyv731 - 111 mmol/LFTMC RemisolCO2 [Moles/Vol]22 mmol/LSioxta65 - 31 mmol/LFTMC RemisolCreatinine [Mass/Vol]1.0 mg/dLNormal0.5 - 1.3 mg/dLFTMC RemisolGFR/1.73 sq M.predicted among blacks MDRD (S/P/Bld) [Vol rate/Area]mL/min/1.73 x2Fbzmgo>=59mL/min/1.73 m2FT[facility] Chem SGFR/1.73 sq M.predicted among non-blacks MDRD (S/P/Bld) [Vol rate/Area]60 mL/min/1.73 b9Rfxgej>=59mL/min/1.73 m2[facility] Chem SGlucose [Mass/Vol] 372 mg/bFEznu50 - 199 mg/dLFT RemisolPotassium [Moles/Vol]4.4 mmol/LNormal3.5 - 5.3 mmol/LFTMC RemisolSodium [Moles/Vol]131 mmol/IDca752 - 145 mmol/LFTMC RemisolUrea nitrogen [Mass/Vol]19 mg/dLNormal5 - 21 mg/dLFTMC RemisolUrea nitrogen/Creatinine [Mass ratio]19 mg/jcSqqeli08 - 20FT Fvrfdkc61- hydroxyvitamin D3 [Mass/Vol]8.1 ng/mLLow30.0 - 100.0 ng/mLFT RemisolAlbumin [Mass/Vol]3.4 g/dLNormal3.3 - 5.0 gm/dLFT RemisolAlbumin/Globulin [Mass ratio] 1.1 {ratio}Normal1.1 - 2.2FTMC RemisolALP [Catalytic activity/Vol]93 [iU]/d Cjoizr79 - 98 Int._Unit/LFTMC RemisolALT No additional P-5'-P [Catalytic activity/Vol]14 [iU]/dNormal6 - 46 Int._Unit/LFTMC RemisolAnion gap [Moles/Vol] 18 mmol/LHigh6 - 16 mEq/LFTMC RemisolAST [Catalytic activity/Vol]12 [iU]/dNormal 5 - 43 Int._Unit/LFTMC RemisolBilirubin [Mass/Vol]0.8 mg/dLNormal0.0 - 1.1 mg/dL [facility] RemisolBilirubin.direct [Mass/Vol]0.2 mg/dLNormal0.1 - 0.4 mg/dLFTMC RemisolBilirubin.indirect [Mass or moles/Vol]0.6 mg/dLNormal0.1 - 0.9 mg/dLFTMC RemisolCalcium [Mass/Vol]8.7 mg/dLLow8.9 - 11.1 mg/dLFT RemisolChloride [Moles/Vol]100 mmol/WNbw543 - 111 mmol/LFTMC RemisolCO2 [Moles/Vol]19 mmol/LLow 21 - 31 mmol/LFTMC RemisolCreatinine [Mass/Vol]0.9 mg/dLNormal0.5 - 1.3 mg/dL FT RemisolGFR/1.73 sq M.predicted among blacks MDRD (S/P/Bld) [Vol rate/Area] mL/min/1.73 u7Hvzuwx>=59mL/min/1.73 m2FT Chem SGFR/1.73 sq M.predicted among non-blacks MDRD (S/P/Bld) [Vol rate/Area]mL/min/1.73 f2Ytkmsx>=59mL/min/1.73 m2 [facility] Chem SGlobulin (S) [Mass/Vol]3.2 g/dLNormal1.4 - 4.0 gm/dLFT Remisol Glucose [Mass/Vol]419 mg/eXSosz80 - 199 mg/dLFT RemisolLipase [Catalytic activity/Vol]22 U/EZoynmr05 - 58 unit/LFTMC RemisolMagnesium [Mass/Vol]1.5 mg/dL Normal1.3 - 2.4 mg/dLFT RemisolPhosphate [Mass/Vol]3.7 mg/dLNormal1.9 - 4.6 mg/dLFTMC RemisolPotassium [Moles/Vol]4.2 mmol/LNormal3.5 - 5.3 mmol/LFTMC RemisolProtein [Mass/Vol]6.6 g/dLNormal6.0 - 7.8 gm/dLFT RemisolSodium [Moles/Vol]133 mmol/TZko601 - 145 mmol/LFTMC RemisolUrea nitrogen [Mass/Vol]19 mg/dLNormal5 - 21 mg/dLFTMC RemisolUrea nitrogen/Creatinine [Mass ratio]21 mg/mg High10 - 20FT RemisolBeta hydroxybutyrate [Moles/Vol]0.51 mmol/LHigh0.02 - 0.27 mmol/LFTMC RemisolCHEMISTRYOrdered By: Sharla Montes on 40-98-8578JrS0i (Bld) [Mass fraction]9.7 %High<=5.9%[facility] ChemAutoSSCHEMISTRYOrdered By: Mary Lou Salas on 41-12-2811Okcljahwfrl peptide B (Bld) [Mass/Vol]11 pg/mLNormal5 - 80 pg/mLFTMC HemeManSSCHEMISTRYOrdered By: SYSTEM SYSTEM on 00-23-3613Xvdootlq I.cardiac [Mass/Vol]4.50 pg/mLLow10.10 - 27.10 pg/mLFTMC RemisolHEMATOLOGY Ordered By: SYSTEM SYSTEM on 43-80-2035Tpsyzysne/100 WBC (Bld)1.6 %Normal0.0 - 2.0 %[facility] HemeAutoSSBasophils/Leukocytes Auto (Bld) [Pure # fraction]0.1 E9/L Normal0.0 - 0.2 E9/LFTMC HemeAutoSSEosinophils/100 WBC (Bld)2.2 %Normal0.0 - 8.0 %[facility] HemeAutoSSEosinophils/Leukocytes Auto (Bld) [Pure # fraction]0.1 E9/L Normal0.0 - 0.5 E9/LFTMC HemeAutoSSLymphocytes/100 WBC (Bld)23.2 %Riuddb06.0 - 50.0 %[facility] HemeAutoSSLymphocytes/Leukocytes Auto (Bld) [Pure # fraction]1.3 E9/L Normal1.0 - 4.0 E9/LFTMC HemeAutoSSMonocytes/100 WBC (Bld)6.0 %Normal4.0 - 14.0 %[facility] HemeAutoSSMonocytes/Leukocytes Auto (Bld) [Pure # fraction]0.3 E9/LNormal 0.2 - 1.0 E9/LFTMC HemeAutoSSNeutrophils/100 WBC (Bld)67.0 %Fjwtwg07.0 - 75.0 % [facility] HemeAutoSSNeutrophils/Leukocytes Auto (Bld) [Pure # fraction]3.8 E9/LNormal 2.0 - 7.5 E9/LFTMC HemeAutoSSHEMATOLOGYOrdered By: Mary Lou Salas on 04-06-2022 Erythrocyte distribution width (RBC) [Ratio]13.6 %Flglzv18.9 - 14.2 %[facility] HemeAutoSSHematocrit (Bld) [Volume fraction]38.9 %Rimebs01.0 - 46.0 %[facility] HemeAutoSSHemoglobin (Bld) [Mass/Vol]13.3 g/pNOjlbhd12.0 - 16.0 gm/dLFT HemeAutoSSMCH (RBC) [Entitic mass]30.2 uoFjteds30.0 - 34.0 pgFTMC HemeAutoSSMCHC (RBC) [Mass/Vol]34.2 g/bYMrxfcl83.4 - 36.0 gm/dLFT HemeAutoSSMCV (RBC) [Entitic vol]88.1 wOKzsgtx39.0 - 100.0 fLLINDSA[facility] HemeAutoSSPlatelet mean volume (Bld) [Entitic vol]7.3 fLNormal6.4 - 10.8 fLLINDSAY M[facility] HemeAutoSSPlatelets (Bld) [#/Vol]279.0 E9/LIzblfp333.0 - 500.0 E9/[facility] HemeAutoSSRBC (Bld) [#/Vol]4.4 E12/LNormal4.3 - 5.9 E12/[facility] HemeAutoSSWBC corrected for nucl RBC Auto (Bld) [#/Vol]5.7 E9/LNormal4.0 - 11.0 E9/[facility] HemeAutoSSNo Panel InformationOrdered By: ANGPROCESSSERVER MICROBIOLOGY on 10-79-2394Iwhdz Culture CharcoalNo growth at 2 days. Final to follow at 7 days.[facility] HospitalCT STROKE HEAD WOon 55-43-6217TF STROKE HEAD WONormalThe [facility] HospitalPOINT OF CARE GLUCOSEon 81-20-9224Znpxcak [Mass/Vol]178 mg/dLCritically zafo93-621SsoMemorial Health System Marietta Memorial HospitalComment on above:Performed By: #### POCGLUC ####[facility] Nrtjqoxmkx3732 [place], [place] [address]IsMaris Devin ChangXR CHEST 1 Von 91-59-6481ZQ CHEST 1 VNormalCommunity Memorial Hospital AUTO DIFFon 62-44-5583CVWF #0.0 103/ulNormal0.0-0.1[facility] HospitalComment on above:Performed By: #### CBC ####[facility] Dzrzeqveps7[address] [place] [id number].Yilan ChangBasophils/100 WBC (Bld)0.2 %Normal0.2-2.0The [facility] HospitalComment on above:Performed By: #### CBC ####[facility] Skixwxhryy[address] [place], [place] [address]Dr.Yilan ChangEO #0.0 103/ul Normal0.0-0.7The [facility] HospitalComment on above:Performed By: #### CBC ####[facility] Wjnixmnljp86[address] [place], [place] [address]Dr. Yilan ChangEosinophils/100 WBC (Bld)0.1 %Critically low0.9-7.0The [facility]ers HospitalComment on above:Performed By: #### CBC ####[facility] Spgjtqxank[address] [place], [place] [address]Dr.Yilan ChangErythrocyte distribution width (RBC) [Ratio]13.0 %Pltyiq54.0-15.0The [facility] Comment on above:Performed By: #### CBC ####[facility] Jsrenohprz[address] [place], [place] [address]Dr.Tishlan ChangHematocrit (Bld) [Volume fraction]35.3 %Critically low36.0-48.0The [facility]ers HospitalComment on above: Performed By: #### CBC ####[facility] [address]pcszryoak[address] [place], [place] [address]Dr.Yilan ChangHemoglobin (Bld) [Mass/Vol]11.9 g/dL Critically low12.0-16.0The [facility] HospitalComment on above:Performed By: #### CBC ####[facility] Lzegblystj[address] [place], [place] [address]Dr. Yilan ChangIG #0.09 10e3/ulCritically high0.00-0.03The [facility] HospitalComment on above:Performed By: #### CBC ####[facility] Uynuzsaxns[address] [place], [place] [address]Dr.Yilan ChangIG %0.7 %Critically high0.0-0.5The [facility] HospitalComment on above:Performed By: #### CBC ####[facility] Oxturevbpq7[address] [place] [address]Dr.Devin SureshLYMPH #2.3 103/ulNormal1.2-3.8The [facility] HospitalComment on above:Performed By: #### CBC ####[facility] Gzqxnwammt8032 [place] [address]Dr. Devin SureshLymphocytes/100 WBC (Bld)17.3 %Critically low20.5-60.0The [facility] HospitalComment on above:Performed By: #### CBC ####[facility] Kuepwonvrm[address]454 [place] [address]Dr.Devin SureshMANUAL DIFF REQ NONormalThe [facility] HospitalComment on above:Performed By: #### CBC ####[facility] [address]otgfjvogk[address] [place], [place] [address]Dr. Devin SureshNYC HEALTH + H[facility]PITALS (RBC) [Entitic mass]30.9 ujOwisiy60.7-34.0[facility] Comment on above:Performed By: #### CBC ####[facility] Jptqenryot[address] [place], [place] [address]Dr.Devin SureshMCHC (RBC) [Mass/Vol]33.7 g/dL Jmtwsv48.9-35.2The [facility] HospitalComment on above:Performed By: #### CBC ####[facility] Seahwjtvnu[address] [place], [place] [address]Dr. Devin SureshV (RBC) [Entitic vol]91.7 tHYtlthd97.0-99.0The [facility] Comment on above:Performed By: #### CBC ####[facility] Yefsqofmiq[address] [place], [place] [address]Dr.Devin SureshMONO #0.6 103/ulNormal0.3-0.8 The [facility] HospitalComment on above:Performed By: #### CBC ####[facility] Nntsakcxqp[address] [place], [place] [address]DrMarisDevin Kerwin Monocytes/100 WBC (Bld)4.6 %Normal1.7-12.0[facility] HospitalComment on above: Performed By: #### CBC ####[facility] Dvmeypmgje3036 [place] [address]Dr.Tishemily SureshNEUT #10.2 103/ulCritically high1.4-6.5 The [facility] HospitalComment on above:Performed By: #### CBC ####[facility] Frijwxpkey[address] [place], [place] [address]Dr.Devin Suresh Neutrophils/100 WBC (Bld)77.1 %Critically high43.0-75.0The [facility] Comment on above:Performed By: #### CBC ####[facility] [address]gfushztc[address] [place], [place] [address]Dr.Devin SureshPlatelet mean volume (Bld) [Entitic vol]9.4 fLCritically low9.5-13.5[facility] HospitalComment on above: Performed By: #### CBC ####[facility] Nezudgifrh[address] [place], [place] [address]Dr.Devin SureshPLT382 103/[id number] [facility] HospitalComment on above:Performed By: #### CBC ####[facility] [address]fr[address]voc[address] [place], [place] [address]Dr.Devin SureshRBC3.85 106/ul Critically low4.20-5.40[facility] HospitalComment on above:Performed By: #### CBC ####[facility] Gcllmvdobp[address] [place], [place] [address]Dr. Devin SureshWBC13.2 103/ulCritically high4.0-11.0[facility] HospitalComment on above:Performed By: #### CBC ####[facility] Slcukcymtl[address] [place], [place] [address]Dr.Devin SureshCT HEAD WO CONon [id number] HEAD WO CONNormalMemorial Health System Marietta Memorial HospitalCTA HEAD WO W CONon [id number] HEAD WO W CON NormalMemorial Health System Marietta Memorial HospitalGLYCOHEMOGLOBIN A1Con [id number] RECOMMENDATIONSEE [facility] Rittman Medical CenterComment on above:Result Comment: ADA RECOMMENDED LIMIT 4.0 - 6.0 ADA THERAPEUTIC TARGET < 7.0 ACTION SUGGESTED > 7.0Performed By: #### A1C ####[facility] [address] [place] [address]Dr.Devin ChangGlucose [Mass/Vol]249 mg/dLNormalThe [facility] HospitalComment on above:Performed By: #### A1C ####[facility] Weplsncdrq[address] [place], [place] [address]Dr.Devin GqnrcDjV3b (Bld) [Mass fraction]10.3 % Critically high4.5-6.2[facility] HospitalComment on above:Performed By: #### A1C ####[facility] [address] [place], [place] [address]Dr. Tishemily ChangPOINT OF CARE GLUCOSEon [id number] [Mass/Vol]276 mg/dL Critically grda40-770Fhi [facility] HospitalComment on above:Performed By: #### POCGLUC ####[facility] [address]rot[address]negn[address] [place] [address]Dr. Devin ChangGlucose [Mass/Vol]209 mg/dLCritically micj40-357Gqi [facility] HospitalComment on above:Performed By: #### POCGLUC ####[facility] Snyuiikpwm180[address] [place], [place] [address]Dr. Devin ChangGlucose [Mass/Vol]286 mg/dLCritically pbym58-629Ftt [facility] HospitalComment on above: Performed By: #### POCGLUC ####[facility] Lrrcxmysgc525[address] [place], [place] [address]Dr. Devin ChangPROF 14(COMP METB)on 84-77-7837Dqkkuvu [Mass/Vol]2.9 g/dLCritically low3.4-5.0The [facility] HospitalComment on above: Performed By: #### CMP ####[facility] Cfrzsocvce470[address] [place], [place] [address]Dr.Devin ChangAlbumin/Globulin [Mass ratio]0.9 {ratio} NormalThe [facility]ers HospitalComment on above:Performed By: #### CMP ####[facility] Wqjyktchsc33[address] [place], [place] [address]Fb.Yilan ChangALP [Catalytic activity/Vol]109 U/SNjceud71-262Xzp [facility] HospitalComment on above:Performed By: #### CMP ####[facility] Bjecxfbmmx4912 [place] [id number].Yilan ChangALT [Catalytic activity/Vol]13 U/L Critically ptm36-72Zvh [facility] HospitalComment on above:Performed By: #### CMP ####[facility] Hatusaknff9[address] [place] [id number]. Yilan ChangAnion gap [Moles/Vol]12.1 mmol/LNormalThe [facility] HospitalComment on above:Performed By: #### CMP ####[facility] Jlzmgrptaa8765 [place] [address]Dr.Yilan ChangAST [Catalytic activity/Vol]6 U/L Critically xbu64-90Wbc [facility] HospitalComment on above:Performed By: #### CMP ####[facility] Djcllgaohw0[address] [place], [place] [address]Dr. Yilan ChangBilirubin [Mass/Vol]0.4 mg/dLNormal0.2-1.0The [facility] Comment on above:Performed By: #### CMP ####[facility] Kcawuzddgx1887 [place] [id number].Yilan ChangCalcium [Mass/Vol]8.6 mg/dL Normal8.5-10.1The [facility] HospitalComment on above:Performed By: #### CMP ####[facility] Smntdcezgy6925 [place] [address]Dr. Yilan ChangChloride [Moles/Vol]105 mmol/WSamzgc25-082Kdu [facility] Comment on above:Performed By: #### CMP ####[facility] Xbzoeelyyc7304 [place] [address]Dr.Yilan ChangCO2 [Moles/Vol]25.4 mmol/L Omxwuq33.0-32.0The [facility] HospitalComment on above:Performed By: #### CMP ####[facility] Jwbvlmlyhz6849 [place] [id number]. Yilan ChangCreatinine [Mass/Vol]1.38 mg/dLCritically high0.55-1.02The [facility] HospitalComment on above:Performed By: #### CMP ####[facility] Gtfxlbwouc[address] [place], [place] [address]Dr.Yilan ChangEGFR-AF GWGGIJSH89 mL/min/1.66b4Rbaybwwgpt low>=60The [facility] HospitalComment on above: Performed By: #### CMP ####[facility] Kvquonzgxj200[address] [place], [place] [address]Dr.Yilan ChangEGFR-NON AF VGAOTQQG00 mL/min/1.73m2 Critically low>=60The [facility] HospitalComment on above:Performed By: #### CMP ####[facility] Ynijqhuwfo209[address] [place], [place] [address]Dr. Yilan ChangGlobulin (S) [Mass/Vol]3.3 g/dLNormalThe [facility] HospitalComment on above:Performed By: #### CMP ####[facility] Ggqtpoqsaf924[address] [place], [place] [address]Dr.Yilan ChangGlucose [Mass/Vol]258 mg/dLCritically lfcs31-924Npa [facility] HospitalComment on above:Performed By: #### CMP ####[facility] Ofpfertvgm176357 [address] [place], [place] [address]Dr. Yilan ChangPotassium [Moles/Vol]4.5 mmol/LNormal3.5-5.1The [facility] Comment on above:Performed By: #### CMP ####[facility] Hvgsfhtkeh36[address] [place], [place] [address]Dr.Yilan ChangProtein [Mass/Vol]6.2 g/dL Critically low6.4-8.2The [facility] HospitalComment on above:Performed By: #### CMP ####[facility] Rnqtwkzjwa4299[address] [place], [place] [address]Dr. Yilan ChangSodium [Moles/Vol]138 mmol/YRolyid934-139Xcw [facility] HospitalComment on above:Performed By: #### CMP ####[facility] Oxltbiziwf0422 [place] [address]Dr.Devin ChangUrea nitrogen [Mass/Vol]22.0 mg/dL Critically high7.0-18.0[facility] HospitalComment on above:Performed By: #### CMP ####[facility] Qapaffbeux2869 [place] [address]Dr. Tishlan ChangUrea nitrogen/Creatinine [Mass ratio]15.9 mg/mgNormalThe [facility] HospitalComment on above:Performed By: #### CMP ####[facility] Lqbqqujnar9[address] [place], [place] [address]Dr.Devin SureshCARDIAC LAURA 3-6on 08-11-5904OS [Catalytic activity/Vol]46 U/NFtsccy97-257Vbf [facility] on above:Performed By: #### CMREP ####[facility] Okjyslhzrm2860[address] [place], [place] [address]Dr. Devin KerwinCK.MB [Mass/Vol]0.87 ng/mLNormal<=3.60The [facility] on above:Performed By: #### CMREP ####[facility] Ljkgfwgkyh9818[address] [place], [place] [address]Dr. Devin SureshHSTROP8.1 pg/mLNormal4.0-51.3The [facility] Comment on above:Result Comment: CUT-OFF POINTS HAVE BEEN ESTABLISHED BASED ON THE FOURTH UNIVERSAL DEFINITIONS OF MYOCARDIALINFARCTION. THE UPPER REFERENCE LIMIT (URL) OF TROPONIN, DEFINED THE 99TH PERCENTILE OFcTnI DISTRIBUTION IN A REFERENCE POPULATION, HAS BEEN CONFIRMED THE DECISION THRESHOLDFOR [place] DIAGNO SIS.Performed By: #### CMREP ####[facility] Ewexoszzxe1485[address] [place], [place] [address]Dr. Devin ChangCK [Catalytic activity/Vol]51 U/LNormal 26-192The [facility] HospitalComcovenant medical center on above:Performed By: #### CMREP ####[facility] Hsqthwxosz630[address] [place], [place] [address]Dr. Tishemily KerwinCK.MB [Mass/Vol]0.85 ng/mLNormal<=3.60The [facility] HospitalComment on above:Performed By: #### CMREP ####[facility] Gbinkfkwom240[address] [place], [place] [address]Dr. Yilan WgphqHXPYPA91.8 pg/mLNormal4.0-51.3The [facility] HospitalComment on above:Result Comment: CUT-OFF POINTS HAVE BEEN ESTABLISHED BASED ON THE FOURTH UNIVERSAL DEFINITIONS OF MYOCARDIALINFARCTION. THE UPPER REFERENCE LIMIT (URL) OF TROPONIN, DEFINED THE 99TH PERCENTILE OFcT nI DISTRIBUTION IN A REFERENCE POPULATION, HAS BEEN CONFIRMED THE DECISION THRESHOLDFOR [place] DIAGNOSIS.Performed By: #### CMREP ####[facility] Efvlnzxatg351157 [address] [place], [place] [address]Dr. Devin ChangCBC AUTO DIFF on 07-43-1658CORH #0.1 103/ulNormal0.0-0.1The [facility] HospitalComment on above: Performed By: #### CBC ####[facility] Quwfnkuenl942157 [address] [place], [place] [address]Dr.Devin ChangBasophils/100 WBC (Bld)0.8 %Normal 0.2-2.0The [facility] HospitalComment on above:Performed By: #### CBC ####[facility] Uimfthuqhp212[address] [place], [place] [address]Dr.Tishlan ChangEO # 0.2 103/ulNormal0.0-0.7The [facility] HospitalComment on above:Performed By: #### CBC ####[facility] Nrkqovufxk811[address] [place], [place] [address]Dr. Devin ChangEosinophils/100 WBC (Bld)2.0 %Normal0.9-7.0The [facility] Comment on above:Performed By: #### CBC ####[facility] Mtfxnbfkon965[address] [place], [place] [address]Dr.Devin ChangErythrocyte distribution width (RBC) [Ratio]13.1 %Gbtzdj52.0-15.0The [facility] HospitalComment on above: Performed By: #### CBC ####[facility] Jroujglyrv355457 [address] [place], [place] [address]Dr.Yilan ChangHematocrit (Bld) [Volume fraction]35.0 % Critically low36.0-48.0The [facility] HospitalComment on above:Performed By: #### CBC ####[facility] Vhbtvuvlhn5[address] [place], [place] [address]Dr. Devin SureshHemoglobin (Bld) [Mass/Vol]11.9 g/dLCritically low12.0-16.0The [facility] HospitalComment on above:Performed By: #### CBC ####[facility] Frqyjmvcde625[address] [place], [place] [address]Dr.Devin ChangIG #0.05 10e3/ulCritically high0.00-0.03The [facility] HospitalComment on above:Performed By: #### CBC ####[facility] Otnaayytzn0025[address] [place], [place] [address]Dr.Tishemily ChangIG %0.5 %Normal0.0-0.5The [facility] HospitalComment on above: Performed By: #### CBC ####[facility] Qjlpdtrvsi788257 [address] [place], [place] [address]Dr.Devin ChangLYMPH #3.4 103/ulNormal1.2-3.8The [facility] HospitalComment on above:Performed By: #### CBC ####[facility] Vpndnaljxi0465[address] [place], [place] [address]Dr.Devin SureshLymphocytes/100 WBC (Bld)34.2 %Zqkfxv26.5-60.0The [facility] HospitalComment on above:Performed By: #### CBC ####[facility] Jkkycdbalf057257 [address] [place], [place] [address]Dr.Devin SureshMANUAL DIFF REQNONormalThe [facility] HospitalComment on above:Performed By: #### CBC ####[facility] Arbzjqmmbu759[address] [place], [place] [address]Dr.Devin SureshMCH (RBC) [Entitic mass]30.6 pgNormal 26.7-34.0The [facility] HospitalComment on above:Performed By: #### CBC ####[facility] Atvwffcspq724[address] [place], [place] [address]Dr. Devin SureshMCHC (RBC) [Mass/Vol]34.0 g/wHQjtbsu43.9-35.2The [facility] Comment on above:Performed By: #### CBC ####[facility] Irrwmbakew0467 [place] [address]Dr.Devin SureshMCV (RBC) [Entitic vol]90.0 fL Edexio85.0-99.0The [facility] HospitalComment on above:Performed By: #### CBC ####[facility] Emezyqeyso9522 [place] [address]Dr. Devin ChangMONO #0.7 103/ulNormal0.3-0.8The [facility] HospitalComment on above: Performed By: #### CBC ####[facility] Pbaptwbkuo5394 [place] [address]Dr.Devin ChangMonocytes/100 WBC (Bld)6.6 %Normal 1.7-12.0The [facility] HospitalComment on above:Performed By: #### CBC ####[facility] Ivwygjkiya066[address] [place], [place] [address]Dr. Devin ChangNEUT #5.6 103/ulNormal1.4-6.5The [facility] HospitalComment on above: Performed By: #### CBC ####[facility] Autgnhcfjz575[address] [place], [place] [address]Dr.Devin ChangNeutrophils/100 WBC (Bld)55.9 %Normal 43.0-75.0The [facility] HospitalComment on above:Performed By: #### CBC ####[facility] Cyhowazlxu6516 [place] [address]Dr. Devin SureshPlatelet mean volume (Bld) [Entitic vol]9.1 fLCritically low9.5-13.5 The [facility] HospitalComment on above:Performed By: #### CBC ####[facility] Opexyafkmi6973 [place] [address]Dr.Tishlan PjmmxHGJ557 103/svNkgcgy439-731Npo [facility] HospitalComment on above:Performed By: #### CBC ####[facility] Soctazspgr3796 [place], [place] [address]Bo. Devin SureshRBC3.89 106/ulCritically low4.20-5.40The [facility] on above:Performed By: #### CBC ####[facility] Fthilfbcoe0978 [place], [place] [address]Kj.Devin SureshWBC10.0 103/ulNormal4.0-11.0The [facility] HospitalComment on above:Performed By: #### CBC ####[facility] Yrsfprctut3295 [place], [place] [address]Ws.Devin ChangCT LSPINE WO CONon 99-13-6205AT LSPINE WO CONNormalMemorial Health System Marietta Memorial HospitalCovid-19 PCR (CVDTBH) on 27-67-0551TVRE-CoV-2 (COVID-19) RNA EBONIE+probe Ql (Unsp spec)Not detected NormalNOT DETECTEDThe [facility] HospitalComcovenant medical center on above:Result Comment: When diagnostic testing is [...] for this test is supported by the [place] of Health and Human Service's declaration that [...] no longer be used).Performed By: #### CVDTBH ####[facility] Tkexnmpfme8[address] [place], [place] [address]Cn. Devin SureshLIPID PROFILEon 51-89-6349QZHV-HDL RATIO NORMSEE BELOWNormal The [facility] on above:Result Comment: 3.3 - 4.4 LOW RISK 4.4 - 7.1 AVERAGE RISK 7.1 - 11.0 MODERATE RISK >11.0 HIGH RISKPerformed By: #### LIPID, TSH ####[facility] Zeamybnpwb438[address] [place], [place] [address]Dr. Yilan ChangCholesterol [Mass/Vol]231 mg/dLCritically high<=200The [facility] on above:Performed By: #### LIPID, TSH ####[facility] Svlxbrgwld779[address] [place], [place] [address]Dr. Yilan Suresh Cholesterol in HDL [Mass/Vol]52 mg/eEGpnxln78-36MkqMemorial Health System Marietta Memorial HospitalComcovenant medical center on above:Performed By: #### LIPID, TSH ####[facility] Neaatljubw5924[address] [place], [place] [address]Dr. Yilan ChangCholesterol in LDL [Mass/Vol]156.6 mg/dLAdams County HospitalComcovenant medical center on above:Performed By: #### LIPID, TSH ####[facility] Wlkpievgqv2730[address] [place], [place] [address]Dr. Yilan ChangCholesterol.total/Cholesterol in HDL [Mass ratio]4.4 {ratio}NormalThe [facility] HospitalComcovenant medical center on above:Performed By: #### LIPID, TSH ####[facility] Nlfinbyfbr4429[address] [place], [place] [address]Dr. Yilan ChangHDL NORMAL> or = 60 mg/dl - LOW CARDIOVASCULAR RISK <40 mg/dl - HIGH CARDIOVASCULAR RISKAdams County HospitalComcovenant medical center on above:Performed By: #### LIPID, TSH ####[facility] Udhqgbxbui6745[address] [place], [place] [address]Dr. Yilan ChangLDL CALC NORMALSEE BELOWAdams County HospitalComcovenant medical center on above: Result Comment: <100 mg/dl OPTIMAL 100 - 129 mg/dl NEAR OR ABOVE OPTIMAL 130 - 159 mg/dl BORDERLINE HIGH 160 - 189 mg/dl HIGH >190 mg/dl VERY HIGHPerformed By: #### LIPID, TSH ####[facility] Wtxadbeqsk8475[address] [place], [place] [address]Dr. Yilan ChangTriglyceride [Mass/Vol]112 mg/dLNormal<=150[facility] HospitalComment on above:Performed By: #### LIPID, TSH ####[facility] Opnbfsnpov853757 [address] [place], [place] [address]Dr. Yilan ChangVLDL CALC22.4 mg/dLNormalThe [facility] HospitalComment on above:Performed By: #### LIPID, TSH ####[facility] Hogoytmogm617[address] [place], [place] [address]Dr. Yilan ChangPOINT OF CARE GLUCOSEon 76-74-1984Wgnvmqs [Mass/Vol]295 mg/dL Critically iogx37-955PjaMemorial Health System Marietta Memorial HospitalComment on above:Performed By: #### POCGLUC ####[facility] Zoddivhnmr6428[address] [place], [place] [address]Dr. Yilan ChangGlucose [Mass/Vol]157 mg/dLCritically bzsk25-288OpcMemorial Health System Marietta Memorial HospitalComment on above:Performed By: #### POCGLUC ####[facility] Pmbqrtuukm098357 [address] [place], [place] [address]Dr. Yilan ChangGlucose [Mass/Vol]172 mg/dLCritically kafb15-417LxdMemorial Health System Marietta Memorial HospitalComment on above: Performed By: #### POCGLUC ####[facility] Fotbscbxbm617[address] [place], [place] [address]Dr. Yilan ChangGlucose [Mass/Vol]178 mg/dLCritically rvtz95-107XydMemorial Health System Marietta Memorial HospitalComment on above:Performed By: #### POCGLUC ####[facility] Sskqcjrzzf6201[address] [place], [place] [address]Dr. Yilan ChangGlucose [Mass/Vol]241 mg/dLCritically jjyn51-664BtdMemorial Health System Marietta Memorial Hospital Comment on above:Performed By: #### POCGLUC ####[facility] Ijhjlqotci4450[address] [place], [place] [address]Dr. Yilan ChangPROF 14(COMP METB)on 23-16-6572Hdnvuze [Mass/Vol]3.1 g/dLCritically low3.4-5.0[facility] Comment on above:Performed By: #### CMP ####[facility] Tpatiqzqff8047 [place] [id number].Yilan ChangAlbumin/Globulin [Mass ratio] 0.9 {ratio}NormalThe [facility] HospitalComment on above:Performed By: #### CMP ####[facility] Yzvicmpcve4510[address] [place], [place] [address]Dr. Yilan ChangALP [Catalytic activity/Vol]114 U/NYkzsap29-055Qzd [facility] Comment on above:Performed By: #### CMP ####[facility] Wqvcuzuxop955[address] [place], [place] [address]Dr.Yilan ChangALT [Catalytic activity/Vol]9 U/LCritically zwl46-55Bfj [facility] HospitalComment on above:Performed By: #### CMP ####[facility] Xdpzwkgfbs207057 [address] [place], [place] [address]Dr. Yilan ChangAnion gap [Moles/Vol]12.3 mmol/LNormalThe [facility] HospitalComment on above:Performed By: #### CMP ####[facility] Riyeezwxaq7617[address] [place], [place] [address]Dr.Yilan ChangAST [Catalytic activity/Vol]7 U/L Critically caa13-57Hyk [facility] HospitalComment on above:Performed By: #### CMP ####[facility] Cflfnqfrxe012957 [address] [place], [place] [address]Dr. Yilan ChangBilirubin [Mass/Vol]0.4 mg/dLNormal0.2-1.0The [facility] Comment on above:Performed By: #### CMP ####[facility] Hiiwwrdakg007157 [address] [place], [place] [address]Dr.Yilan ChangCalcium [Mass/Vol]8.3 mg/dL Critically low8.5-10.1The [facility] HospitalComment on above:Performed By: #### CMP ####[facility] Dwuennvbqp551257 [address] [place], [place] [address]Dr. Yilan ChangChloride [Moles/Vol]103 mmol/LPpnbed68-376Lld [facility] Comment on above:Performed By: #### CMP ####[facility] Lnhjnghhvp611357 [address] [place], [place] [address]Dr.Yilan ChangCO2 [Moles/Vol]27.2 mmol/L Dtnaah27.0-32.0[facility] HospitalComment on above:Performed By: #### CMP ####[facility] Qfwtjvvlxr664457 [address] [place], [place] [address]Dr. Yilan ChangCreatinine [Mass/Vol]0.95 mg/dLNormal0.55-1.02[facility] Comment on above:Performed By: #### CMP ####[facility] Vzlafsbezm351257 [address] [place], [place] [address]Dr.Yilan ChangEGFR-AF LEBANESE>60Normal>=60 The [facility] HospitalComment on above:Performed By: #### CMP ####[facility] Oovyaqnrbu413[address] [place], [place] [address]Dr.Yilan ChangEGFR- NON AF LEBANESE>60Normal>=60[facility] HospitalComment on above:Performed By: #### CMP ####[facility] Gvwvsomdqu856[address] [place], [place] [address]Dr.Yilan ChangGlobulin (S) [Mass/Vol]3.3 g/dLNormalThMercy Health St. [facility] Comment on above:Performed By: #### CMP ####[facility] Cdabpnwtjb352857 [address] [place], [place] [address]Dr.Yilan ChangGlucose [Mass/Vol]186 mg/dL Critically nzps11-217Osx [facility] HospitalComment on above:Performed By: #### CMP ####[facility] Ixbvbrpcmc814257 [address] [place], [place] [address]Dr. Yilan ChangPotassium [Moles/Vol]3.5 mmol/LNormal3.5-5.1The [facility] Comment on above:Performed By: #### CMP ####[facility] Duzucofbae997[address] [place], [place] [address]Dr.Yilan ChangProtein [Mass/Vol]6.4 g/dL Normal6.4-8.2[facility] HospitalComment on above:Performed By: #### CMP ####[facility] Omtewplcer520857 [address] [place], [place] [address]Dr. Yilan ChangSodium [Moles/Vol]139 mmol/WFfkvmm464-470Tce [facility] Hospitalment on above:Performed By: #### CMP ####[facility] Iarztlahdd0671 [place] [address]Dr.Devin ChangUrea nitrogen [Mass/Vol]22.0 mg/dL Critically high7.0-18.0The [facility] HospitalComment on above:Performed By: #### CMP ####[facility] Qciovjjzhw6827[address] [place], [place] [address]Dr. Tishlan ChangUrea nitrogen/Creatinine [Mass ratio]23.2 mg/mgNormalThe [facility] HospitalComment on above:Performed By: #### CMP ####[facility] Lcbupzxqgm2929[address] [place], [place] [address]Dr.Devin ChangTSHon 44-88-7381YHK8.081 uIU/mLCritically high0.358-3.740The [facility] HospitalComcovenant medical center on above:Performed By: #### LIPID, TSH ####[facility] Eikipvwrkk7799[address] [place], [place] [address]Dr. Devin SureshCARDIAC LAURA ADMITon 95-74-7649CJ [Catalytic activity/Vol]58 U/WHdxsau79-356Ooq [facility] on above: Performed By: #### CMADM, BMP ####[facility] Jyqwbucgpl459[address] [place], [place] [address]Dr. Devin SureshCK.MB [Mass/Vol]0.80 ng/mLNormal<=3.[address] [facility] on above:Performed By: #### CMADM, BMP ####[facility] Bcjkxuhkqp457[address] [place], [place] [address]Dr. Devin Suresh HSTROP7.9 pg/mLNormal4.0-51.3The [facility] HospitalComcovenant medical center on above:Result Comment: CUT-OFF POINTS HAVE BEEN ESTABLISHED BASED ON THE FOURTH UNIVERSAL DEFINITIONS OF MYOCARDIALINFARCTION. THE UPPER REFERENCE LIMIT (URL) OF TROPONIN, DEFINED THE 99TH PERCENTILE OFcTnI DISTRIBUTION IN A REFERENCE POPULATION, HAS BEEN CONFIRMED THE DECISION THRESHOLDFOR [place] DIAGNOSIS. Performed By: #### CMADM, BMP ####[facility] Wlznfadkja8805 [place] [address]Dr. Yilan BglrqGWN80 ng/mLNormal9-82The [facility] HospitalComment on above:Performed By: #### CMADM, BMP ####[facility] Lymuvackyq4804 [place] [address]Dr. Yilan ChangCBC AUTO DIFF on 40-47-4519NMYC #0.1 103/ulNormal0.0-0.1The [facility] HospitalComment on above: Performed By: #### CBC ####[facility] Rcxhfyavum80[address] [place], [place] [address]Dr.Yilan ChangBasophils/100 WBC (Bld)0.8 %Normal 0.2-2.0The [facility] HospitalComment on above:Performed By: #### CBC ####[facility] Loywxltpbm408[address] [place], [place] [address]Dr.Yilan ChangEO # 0.1 103/ulNormal0.0-0.7The [facility] HospitalComment on above:Performed By: #### CBC ####[facility] Fjyyvtwcsh[address] [place], [place] [address]Dr. Yilan ChangEosinophils/100 WBC (Bld)1.1 %Normal0.9-7.0The [facility] Comment on above:Performed By: #### CBC ####[facility] Rqhwmelbja073[address] [place], [place] [address]Dr.Yilan ChangErythrocyte distribution width (RBC) [Ratio]12.9 %Kpgcxx75.0-15.0The [facility] HospitalComment on above: Performed By: #### CBC ####[facility] Xwksrjvhmh564[address] [place], [place] [address]Dr.Tishlan ChangHematocrit (Bld) [Volume fraction]37.6 % Nqysli96.0-48.0The [facility] HospitalComment on above:Performed By: #### CBC ####[facility] Aymmogfwvu185[address] [place], [place] [address]Dr. Yilan ChangHemoglobin (Bld) [Mass/Vol]12.9 g/mLOkmzlu08.0-16.0The [facility] HospitalComment on above:Performed By: #### CBC ####[facility] Xjaynbmxov856[address] [place], [place] [address]DrGonzalo SureshIG #0.06 10e3/ulCritically high0.00-0.03The [facility] HospitalComment on above:Performed By: #### CBC ####[facility] Nkkxjcflys[address] [place], [place] [address]Dr.Devin Suresh %0.6 %Critically high0.0-0.5The [facility] HospitalComment on above:Performed By: #### CBC ####[facility] [address]ajsmfuth[address] [place], [place] [address]Dr.Devin SureshSTAFFORD HOSPITAL #2.4 103/ulNormal1.2-3.8The [facility] HospitalComment on above:Performed By: #### CBC ####[facility] [address]xxqrrehhe[address] [address] [place], [place] [address]Dr.Devin SureshRichmond University Medical Centerhocytes/100 WBC (Bld)22.2 %Gjkzes24.5-60.0The [facility]ers HospitalComment on above:Performed By: #### CBC ####[facility] Okdbnzsoak[address] [place], [place] [address]Dr.Devin SureshUC [facility] DIFF REQNONormalThe [facility]riners HospitalComment on above:Performed By: #### CBC ####[facility] Jcelbxoywp312[address] [place], [place] [address]Dr.Devin SureshNYC HEALTH + [facility] (RBC) [Entitic mass]30.7 pgNormal 26.7-34.0The [facility]ers HospitalComment on above:Performed By: #### CBC ####[facility] Notyivwwsj89[address] [place], [place] [address]DrMaris SureshUNITY HOSPITAL (RBC) [Mass/Vol]34.3 g/vKTsqnjp62.9-35.2The [facility] Comment on above:Performed By: #### CBC ####[facility] Egfbszhbff258357 [address] [place], [place] [address]Dr.Devin SureshMCV (RBC) [Entitic vol]89.5 fL Lopojx60.0-99.0The [facility] Hospitalment on above:Performed By: #### CBC ####[facility] Plpfvyetvc259857 [address] [place], [place] [address]Dr. Devin SureshMONO #0.6 103/ulNormal0.3-0.8The [facility] HospitalComment on above: Performed By: #### CBC ####[facility] Mheauxmuon134357 [address] [place], [place] [address]Dr.Devin SureshMonocytes/100 WBC (Bld)5.3 %Normal 1.7-12.0The [facility] HospitalComment on above:Performed By: #### CBC ####[facility] Adkmzhzynl532[address] [place], [place] [address]Dr. Devin SureshNEUT #7.4 103/ulCritically high1.4-6.5The [facility] HospitalComment on above:Performed By: #### CBC ####[facility] Cuycozwipj556[address] [place], [place] [address]Dr.Devin SureshNeutrophils/100 WBC (Bld)70.0 %Normal 43.0-75.0The [facility] HospitalComment on above:Performed By: #### CBC ####[facility] Fqtjdobsvd060857 [address] [place], [place] [address]Dr. Devin SureshPlatelet mean volume (Bld) [Entitic vol]9.6 fLNormal9.5-13.5The [facility] HospitalComment on above:Performed By: #### CBC ####[facility] Etwwouuyse355257 [address] [place], [place] [address]Dr.Devin SureshPLT382 103/ul Qcziva022-437Sng [facility] HospitalComcovenant medical center on above:Performed By: #### CBC ####[facility] Fgejimeaak610[address] [place], [place] [address]Dr. Devin ChangRBC4.20 106/ulNormal4.20-5.40The [facility]ers HospitalComment on above: Performed By: #### CBC ####[facility] Jmhhkqztjn8[address] [place] [address]Dr.Devin OiddxLOZ76.6 103/ulNormal4.0-11.0The [facility] HospitalComment on above:Performed By: #### CBC ####[facility] Xlnwbymlgk047657 [address] [place], [place] [address]Dr.Tishemily ChangCT STROKE HEAD WOon 87-98-9666ES STROKE HEAD WONormalThe [facility]ers HospitalPOINT OF CARE GLUCOSE on 60-70-2708Dgalzyg [Mass/Vol]453 mg/dLCritically edgf49-658Jua [facility] HospitalComment on above:Performed By: #### POCGLUC ####[facility] Guowuhmrfg457257 [address] [place], [place] [address]Dr. Tishemily ChangPROF CHEM 8 (BAS METB)on 51-35-6315Nvqua gap [Moles/Vol]11.1 mmol/LNormalThe [facility] HospitalComment on above:Performed By: #### CMADM, BMP ####[facility] Wbqknpinzw353657 [address] [place], [place] [address]Dr. Devin ChangCalcium [Mass/Vol]8.6 mg/dLNormal8.5-10.1The [facility] HospitalComcovenant medical center on above:Performed By: #### CMADM, BMP ####[facility] Wvseoqgpjh759[address] [place], [place] [address]Dr. Devin ChangChloride [Moles/Vol]98 mmol/LNormal 98-107The [facility] HospitalComcovenant medical center on above:Performed By: #### CMADM, BMP ####[facility] Qzkirivspv[address] [place], [place] [address]Dr. Devin ChangCO2 [Moles/Vol]29.0 mmol/ECwqkhy39.0-32.0[facility] HospitalComcovenant medical center on above:Performed By: #### CMADM, BMP ####[facility] Ravzpzigbb056057 [address] [place], [place] [address]Dr. Tishemily ChangCreatinine [Mass/Vol]1.16 mg/dLCritically high0.55-1.02The [facility] HospitalComment on above:Performed By: #### CMADM, BMP ####[facility] Ueunszycps77[address] [place] [id number]. Yilan ChangEGFR-AF LEBANESE>60Normal>=60The [facility] Comment on above:Performed By: #### HOWARD, BMP ####[facility] Tldirtflwo9846 [place] [address]Dr. Yilan ChangEGFR-NON AF BNKCVAIS55 mL/min/1.25i6Fnccqtqaav low>=60The [facility] HospitalComment on above: Performed By: #### HOWARD, BMP ####[facility] Ggdiydcziz[address] [place], [place] [address]Dr. Yilan ChangGlucose [Mass/Vol]428 mg/dLCritically yrcd86-378Czy [facility] HospitalComment on above:Performed By: #### HOWARD, BMP ####[facility] Xsvfsgmirx0737[address] [place], [place] [address]Dr. Yilan ChangPotassium [Moles/Vol]4.1 mmol/LNormal3.5-5.1The [facility] Comment on above:Performed By: #### HOWARD, BMP ####[facility] Zxlsixysmu8312[address] [place], [place] [address]Dr. Yilan ChangSodium [Moles/Vol]134 mmol/LCritically pec866-437Ght [facility] HospitalComment on above: Performed By: #### HOWARD, BMP ####[facility] Ogelmyoabi186[address] [place], [place] [address]Dr. Yilan ChangUrea nitrogen [Mass/Vol]23.0 mg/dL Critically high7.0-18.0The [facility] HospitalComment on above:Performed By: #### HOWARD, BMP ####[facility] Ofaplhiqbd424[address] [place], [place] [address]Dr. Yilan ChangUrea nitrogen/Creatinine [Mass ratio]19.8 mg/mgNormalThe [facility] HospitalComment on above:Performed By: #### CMADM, BMP ####[facility] Gcfazkubys2780[address] [place], [place] [address]Dr. Yilan ChangXR CHEST 1 Von 12-39-3239DG CHEST 1 VNormalThe [facility]onia HospitalCHEMISTRYOrdered By: SYSTEM SYSTEM on 26-81-9069Msxgbwfw I.cardiac [Mass/Vol]4.30 pg/mLLow10.10 - 27.10 pg/mLFTMC RemisolAnion gap [Moles/Vol]13 mmol/LNormal6 - 16 mEq/LFTMC RemisolCalcium [Mass/Vol]9.2 mg/dLNormal8.9 - 11.1 mg/dLFTMC RemisolChloride [Moles/Vol]97 mmol/MUbv643 - 111 mmol/LFTMC RemisolCO2 [Moles/Vol]26 mmol/L Egpnpf61 - 31 mmol/LFTMC RemisolCreatinine [Mass/Vol]0.9 mg/dLNormal0.5 - 1.3 mg/dLFTMC RemisolGFR/1.73 sq M.predicted among blacks MDRD (S/P/Bld) [Vol rate/Area]mL/min/1.73 w3Xqznky>=59mL/min/1.73 m2[facility] Chem SGFR/1.73 sq M.predicted among non-blacks MDRD (S/P/Bld) [Vol rate/Area]mL/min/1.73 n1Ofkjlq >=59mL/min/1.73 m2[facility] Chem SGlucose [Mass/Vol]310 mg/qYNsqr05 - 199 mg/dLFTMC RemisolPotassium [Moles/Vol]3.5 mmol/LNormal3.5 - 5.3 mmol/LFTMC RemisolSodium [Moles/Vol]132 mmol/SCcf163 - 145 mmol/LFTMC RemisolUrea nitrogen [Mass/Vol]16 mg/dLNormal5 - 21 mg/dLFTMC RemisolUrea nitrogen/Creatinine [Mass ratio]18 mg/mg Rhirxd78 - 20[facility] RemisolValproate [Moles/Vol]microgram/mLLow50 - 99 mcg/mLFTMC RemisolComment on above:Result Comment: Result verified by dilutionCHEMISTRY Ordered By: Sharla Villagomez on 48-63-8002Kqsiuwgr I.cardiac [Mass/Vol]5.90 pg/mLLow10.10 - 27.10 pg/mLFTMC RemisolHEMATOLOGYOrdered By: SYSTEM SYSTEM on 83-02-4793Cchxizbyg/100 WBC (Bld)1.1 %Normal0.0 - 2.0 %[facility] HemeAutoSS Basophils/Leukocytes Auto (Bld) [Pure # fraction]0.1 E9/LNormal0.0 - 0.2 E9/L [facility] HemeAutoSSEosinophils/100 WBC (Bld)1.9 %Normal0.0 - 8.0 %[facility] HemeAutoSS Eosinophils/Leukocytes Auto (Bld) [Pure # fraction]0.2 E9/LNormal0.0 - 0.5 E9/L [facility] HemeAutoSSLymphocytes/100 WBC (Bld)21.6 %Apymve88.0 - 50.0 %[facility] HemeAutoSS Lymphocytes/Leukocytes Auto (Bld) [Pure # fraction]2.0 E9/LNormal1.0 - 4.0 E9/L [facility] HemeAutoSSMonocytes/100 WBC (Bld)5.0 %Normal4.0 - 14.0 %[facility] HemeAutoSS Monocytes/Leukocytes Auto (Bld) [Pure # fraction]0.5 E9/LNormal0.2 - 1.0 E9/L [facility] HemeAutoSSNeutrophils/100 WBC (Bld)70.4 %Peqkqe65.0 - 75.0 %[facility] HemeAutoSS Neutrophils/Leukocytes Auto (Bld) [Pure # fraction]6.7 E9/LNormal2.0 - 7.5 E9/L [facility] HemeAutoSSHEMATOLOGYOrdered By: Shannen Sosa on 90-76-3100Toasvqyvdls distribution width (RBC) [Ratio]13.4 %Sdoezl59.9 - 14.2 %[facility] HemeAutoSS Hematocrit (Bld) [Volume fraction]38.3 %Dipsvy22.0 - 46.0 %[facility] HemeAutoSS Hemoglobin (Bld) [Mass/Vol]13.0 g/aEDkvysc25.0 - 16.0 gm/dLFTMC HemeAutoSSMCH (RBC) [Entitic mass]29.7 xaZtwwep64.0 - 34.0 pgFTMC HemeAutoSSMCHC (RBC) [Mass/Vol]33.9 g/aPWpyagw50.4 - 36.0 gm/dLFTMC HemeAutoSSMCV (RBC) [Entitic vol] 87.6 vNJidjde71.0 - 100.0 fLLINDSA[facility] [place] HemeAutoSSPlatelet mean volume (Bld) [Entitic vol]7.5 fLNormal6.4 - 10.8 fLLINDSAY M[facility]IC[facility] [place] HemeAutoSSPlatelets (Bld) [#/Vol]343.0 E9/L Maykxt117.0 - 500.0 E9/LFALL[facility] [place] HemeAutoSSRBC (Bld) [#/Vol]4.4 E12/LNormal4.3 - 5.9 E12/LFALL[facility] [place] HemeAutoSSWBC corrected for nucl RBC Auto (Bld) [#/Vol]9.5 E9/LNormal 4.0 - 11.0 E9/LFALL[facility]HE[facility] [place] HemeAutoSSCULTURE URINEon 89-15-1357GIAFOCP URINENormalThe [facility] HospitalComment on above:Performed By: #### URCX ####[facility] Zlbvkdhrmk027[address] [place], [place] [address]Dr. Devin ChangACETONE SERUM on 19-08-3562KJANHWZKtbqgzycRtbdknUNBWDGWWQes [facility]vue HospitalComment on above: Performed By: #### ACETON ####[facility] Rxvskwmiik698[address] [place], [place] [address]Dr. Devin ChangCBC AUTO DIFFon 53-08-8454NQMY #0.0 103/ulNormal0.0-0.1[facility] HospitalComment on above:Performed By: #### CBC ####[facility] Pgumxgcmnz845[address] [place], [place] [address]Dr. Tishlan ChangBasophils/100 WBC (Bld)0.4 %Normal0.2-2.0[facility] HospitalComment on above:Performed By: #### CBC ####[facility] Gewzicttch6414[address] [place], [place] [address]Dr.Yilan ChangEO #0.1 103/ulNormal0.0-0.7The [facility] HospitalComment on above:Performed By: #### CBC ####[facility] Nzejwtqiwa756357 [address] [place], [place] [address]Dr.Yilan ChangEosinophils/100 WBC (Bld)1.0 %Normal0.9-7.0The [facility] HospitalComment on above:Performed By: #### CBC ####[facility] Xjhlwbsbau484[address] [place], [place] [address]Dr.Devin ChangErythrocyte distribution width (RBC) [Ratio]12.3 %Normal 11.0-15.0The [facility] HospitalComment on above:Performed By: #### CBC ####[facility] Kpawawnceg325157 [address] [place], [place] [address]Dr. Devin ChangHematocrit (Bld) [Volume fraction]34.4 %Critically low36.0-48.0The [facility] HospitalComment on above:Performed By: #### CBC ####[facility] Jgkxhirdbf865[address] [place], [place] [address]Dr.Devin ChangHemoglobin (Bld) [Mass/Vol]11.7 g/dLCritically low12.0-16.0The [facility] HospitalComment on above:Performed By: #### CBC ####[facility] Kcpozdmrsf548[address] [place], [place] [address]Dr.Yiemily ChangIG #0.09 10e3/ulCritically high0.00-0.03 The [facility] HospitalComment on above:Performed By: #### CBC ####[facility] Fwiexwdckx134[address] [place], [place] [address]Dr.Devin ChangIG % 0.9 %Critically high0.0-0.5The [facility] HospitalComment on above:Performed By: #### CBC ####[facility] Ggbsfrrwey067[address] [place], [place] [address]Dr.Tishemily ChangLYMPH #2.0 103/ulNormal1.2-3.8The [facility] HospitalComment on above:Performed By: #### CBC ####[facility] Dcmgnzutrw7550[address] [place], [place] [address]Dr.Tishemily ChangLymphocytes/100 WBC (Bld)19.8 % Critically low20.5-60.0The [facility] HospitalComment on above:Performed By: #### CBC ####[facility] Ouotsfziiu[address] [place] [address]Dr. Devin SureshMANUAL DIFF REQNONormalThe [facility] HospitalComment on above: Performed By: #### CBC ####[facility] Mherlnlhqp2471 [place] [address]Dr.Devin SureshH (RBC) [Entitic mass]30.2 pgNormal 26.7-34.0The [facility] HospitalComment on above:Performed By: #### CBC ####[facility] Xhyvvlfsyj019[address] [place], [place] [address]Dr. Devin SureshHC (RBC) [Mass/Vol]34.0 g/eUBtxsld62.9-35.2The [facility] Comment on above:Performed By: #### CBC ####[facility] Uktvzmruwb003[address] [place], [place] [address]Dr.Devin SureshMCV (RBC) [Entitic vol]88.9 fL Grqcwu18.0-99.0The [facility] HospitalComment on above:Performed By: #### CBC ####[facility] Wexqvqyhnn246[address] [place], [place] [address]Dr. Devin SureshMONO #0.6 103/ulNormal0.3-0.8The [facility] HospitalComment on above: Performed By: #### CBC ####[facility] Urvxguxpfe932[address] [place], [place] [address]Dr.Tishemily ChangMonocytes/100 WBC (Bld)6.4 %Normal 1.7-12.0The [facility] HospitalComment on above:Performed By: #### CBC ####[facility] Flzgvrtjeb126[address] [place], [place] [address]Dr. Tishemily SureshNEUT #7.0 103/ulCritically high1.4-6.5The [facility] HospitalComment on above:Performed By: #### CBC ####[facility] Tpcmrkarxz905[address] [place], [place] [address]Dr.Devin KerwinNeutrophils/100 WBC (Bld)71.5 %Normal 43.0-75.0The [facility] HospitalComment on above:Performed By: #### CBC ####[facility] Qdpmkiriwt8674 [place] [address]Dr. Devin SureshPlatelet mean volume (Bld) [Entitic vol]8.4 fLCritically low9.5-13.5 The [facility] Hospitalment on above:Performed By: #### CBC ####[facility] Bhkdkuwdxz0309 [place] [address]Dr.Devin SureshPLT333 103/cqSpzqok668-684Pcv [facility] HospitalComment on above:Performed By: #### CBC ####[facility] Htljcnfkdk7872 [place] [address]Dr. Devin SureshRBC3.87 106/ulCritically low4.20-5.40The [facility] on above:Performed By: #### CBC ####[facility] Rtcodpbcuv5655 [place] [address]Dr.Devin SureshWBC9.8 103/ulNormal4.0-11.0The [facility] on above:Performed By: #### CBC ####[facility] Dntwyvqcqk4319 [place] [address]Dr.Devin SureshCT HEAD WO CON on 29-02-8911YV HEAD WO CONNormalThe [facility] HospitalDEPAKENE/VALPROICon 48-28-8689USEVOIXP<3.0Critically low50.0-100.0The [facility] on above:Performed By: #### CMP, VALP, HSTROPN ####[facility] Hbjhnjjdhs13[address] [place] [address]Dr. Yilan ChangER URINE PROFILEon 02-18-2022 Bilirubin Ql (U)NegativeNormalNEGATIVEThe [facility] on above: Performed By: #### MERCEDEZ LOCKE ####[facility] Rwaybidkcd6200 [place], [place]Dr. Devin ChangClarity (U)CLEARNormalCLEARThe [facility] on above:Performed By: #### MERCEDEZ LOCKE ####[facility] Wbxzvjosmh4915 [place], [place]Dr. Yilan ChangColor (U)LT. YELLOWNormalYELLOWMemorial Health System Marietta Memorial HospitalComment on above:Performed By: #### SAMANTHA LOCKER ####[facility] Bbywquzccq1069 [place], [place] [address]Ou. Yilan ChangERUAHDA micrscopic examination will be performed if indicated.NormalThe [facility] HospitalComment on above:Performed By: #### SAMANTHA LOCKER ####[facility] Mrmddpddcv0099 [place], [place]Dr. Yilan ChangGlucose Ql (U)>1000AbnormalNEGATIVEThe [facility] HospitalComment on above:Performed By: #### SAMANTHA LOCKER ####[facility] Lqdxitsyhj8307 [place], [place]Dr. Yilan ChangHemoglobin Ql (U)SMALLAbnormal NEGATIVEMemorial Health System Marietta Memorial HospitalComment on above:Performed By: #### SAMANTHA LOCKER ####[facility] Hbtzrkfmet8887 [place], [place]Dr. Yilan ChangKetones Ql (U)40 mg/dlAbnormalNEGATIVEMemorial Health System Marietta Memorial HospitalComment on above:Performed By: #### SAMANTHA LOCKER ####[facility] Dlzuqaimec7414 [place], [place]Dr. Yilan ChangLEUKOCYTESTRACEAbnormalNEGATIVEMemorial Health System Marietta Memorial HospitalComment on above:Performed By: #### SAMANTHA LOCKER ####[facility] Qjxzolvckw8947 [place], [place]Dr. Yilan Suresh Nitrite Ql (U)PositiveAbnormalNEGATIVEMemorial Health System Marietta Memorial HospitalComment on above: Performed By: #### SAMANTHA LOCKER ####[facility] Sltlfkurks9346 [place] [address]Dr. Yilan ChangpH (U)7.0 [pH]Normal5-9The [facility] HospitalComment on above:Performed By: #### SAMANTHA LOCKER ####[facility] Pcsyngmfqe7560 [place] [address]Dr. Devin SureshProtein (U) [Mass/Vol]100 mg/dLAbnormalNEGATIVE/ TRACEThe [facility] HospitalComment on above: Performed By: #### SAMANTHA LOCKER ####[facility] Ewjmmaptwa5848 [place] [address]Dr. Devin SureshSPEC GRAVITY1.721Gwaoxb3.005-<=1.025The [facility] HospitalComment on above:Performed By: #### CHUCKY ERUR ####[facility] Oiklqgqwxs6140 [place] [address]Dr. Devin SureshUR MICRO INDINDICATEDNormalThMercy Health St. Anne HospitalComment on above:Performed By: #### CHUCKY ERUR ####[facility] Mbvxshtpub8037 [address] Devin SureshUrobilinogen Qn (U)1.0 {Sheyla'U}/dLNormal0.2 - 1.0The [facility] HospitalComment on above:Performed By: #### SAMANTHA LOCKER ####[facility] Wobcbcknmo[address] [place], [place] [address]r. Devin Suresh LACTATE/LACTIC ACIDon 89-30-8589Qwjpius [Moles/Vol]0.9 mmol/LNormal0.4-1.9[facility] HospitalComment on above:Performed By: #### LACT ####[facility] Bqqnwrlupj8[address] [place], [place] [address]Dr. Devin SureshPOINT OF CARE GLUCOSEon 20-44-5058Jvcxker [Mass/Vol]346 mg/dLCritically hykk86-717Mhq [facility] HospitalComment on above:Performed By: #### POCGLUC ####[facility] Bjdatjhdgv[address] [place], [place] [address]Dr. Devin SureshGlucose [Mass/Vol]272 mg/dLCritically uvza35-742Yhn [facility] HospitalComment on above: Performed By: #### POCGLUC ####[facility] Rwavjqrqfo8954 [place] [address]Dr. Yilan ChangPROF 14(COMP METB)on 03-19-0400Jrcudgz [Mass/Vol]3.3 g/dLCritically low3.4-5.0The [facility] HospitalComment on above: Performed By: #### CMP, VALP, HSTROPN ####[facility] Heastcmihl4150 [place] [address]Dr. Yilan ChangAlbumin/Globulin [Mass ratio]0.9 {ratio}NormalThe [facility] HospitalComment on above:Performed By: #### CMP, VALP, HSTROPN ####[facility] Zgnetqwcec175[address] [place], [place] [address]Dr. Yilan ChangALP [Catalytic activity/Vol]130 U/LCritically wxwo40-812Urk [facility] HospitalComment on above:Performed By: #### CMP, VALP, HSTROPN ####[facility] Czyiqfngmo568[address] [place], [place] [address]Dr. Yilan ChangALT [Catalytic activity/Vol]22 U/RGledkx48-04Iap [facility] Comment on above:Performed By: #### CMP, VALP, HSTROPN ####[facility] Lwyfktznjo694[address] [place], [place] [address]Dr. Yilan ChangAnion gap [Moles/Vol]10.9 mmol/LNormalThe [facility] HospitalComment on above:Performed By: #### CMP, VALP, HSTROPN ####[facility] Legleuxyvg75[address] [place], [place] [address]Dr. Yilan ChangAST [Catalytic activity/Vol]11 U/L Critically hji36-09Tkd [facility] HospitalComment on above:Performed By: #### CMP, VALP, HSTROPN ####[facility] Hqmvjquwjb2375[address] [place], [place] [address]Dr. Yilan ChangBilirubin [Mass/Vol]0.9 mg/dLNormal0.2-1.0The [facility] HospitalComment on above:Performed By: #### CMP, VALP, HSTROPN ####[facility] Sjhzfcuwjt4456 [place] [address]Dr. Devin Suresh Calcium [Mass/Vol]8.7 mg/dLNormal8.5-10.1The [facility] HospitalComment on above: Performed By: #### CMP, VALP, HSTROPN ####[facility] Guyopjhlkb1323 [place] [address]Dr. Yilan ChangChloride [Moles/Vol]100 mmol/L Ujyrvc53-293Wda [facility] HospitalComcovenant medical center on above:Performed By: #### CMP, VALP, HSTROPN ####[facility] Phhzvowjui[address] [place], [place] [address]Dr. Yilan ChangCO2 [Moles/Vol]29.4 mmol/TZnygww48.0-32.0The [facility] HospitalComcovenant medical center on above:Performed By: #### CMP, VALP, HSTROPN ####[facility] Ftorlrzfoe[address] [place], [place] [address]Dr. Yilan Suresh Creatinine [Mass/Vol]0.87 mg/dLNormal0.55-1.02The [facility] on above:Performed By: #### CMP, VALP, HSTROPN ####[facility] Lxrqpqqxma528[address] [place], [place] [address]Dr. Yilan ChangEGFR-AF LEBANESE>60Normal >=60The [facility] on above:Performed By: #### CMP, VALP, HSTROPN ####[facility] Deewllhnfj864[address] [place], [place] [address]Dr. Yilan ChangEGFR-NON AF LEBANESE>60Normal>=60The [facility] on above:Performed By: #### CMP, VALP, HSTROPN ####[facility] Kmsxhcgsii214[address] [place], [place] [address]Dr. Yilan ChangGlobulin (S) [Mass/Vol]3.8 g/dLNormalThe [facility] HospitalComcovenant medical center on above:Performed By: #### CMP, VALP, HSTROPN ####[facility] Sxmshvspee[address] [place], [place] [address]Dr. Yilan ChangGlucose [Mass/Vol]282 mg/dLCritically xwnt21-741Guo [facility] HospitalComment on above:Performed By: #### CMP, VALP, HSTROPN ####[facility] Atcdanvhnv4515 [place] [address]Dr. Devin Suresh Potassium [Moles/Vol]3.3 mmol/LCritically low3.5-5.1The [facility] HospitalComment on above:Performed By: #### CMP, VALP, HSTROPN ####[facility] Rvaodgebwt0992 [place] [address]Dr. Devin SureshProtein [Mass/Vol]7.1 g/dLNormal6.4-8.2The [facility] HospitalComment on above:Performed By: #### CMP, VALP, HSTROPN ####[facility] [id number] [place] [address]Dr. Devin SureshSodium [Moles/Vol]137 mmol/LNormal 136-145[facility] HospitalComment on above:Performed By: #### CMP, VALP, HSTROPN ####[facility] [address] [place] [address]Dr. Devin ChangUrea nitrogen [Mass/Vol]14.0 mg/dLNormal7.0-18.0[facility]Com[facility] on above:Performed By: #### CMP, VALP, HSTROPN ####[facility] [address] [place] [address]Dr. Tishlan ChangUrea nitrogen/Creatinine [Mass ratio]16.1 mg/mgNormalThe [facility] HospitalComc[facility] on above:Performed By: #### CMP, VALP, HSTROPN ####[facility] [id number] [place] [address]Dr. Devin ChangTROPONIN, HIGH SENSITIVITYon [id number] pg/mLNormal4.0-51.3[facility] HospitalComment on above: Result Comment: CUT-OFF POINTS HAVE BEEN ESTABLISHED BASED ON THE FOURTH UNIVERSAL DEFINITIONS OF MYOCARDIALINFARCTION. THE UPPER REFERENCE LIMIT (URL) OF TROPONIN, DEFINED THE 99TH PERCENTILE OFcTnI DISTRIBUTION IN A REFERENCE POPULATION, HAS BEEN CONFIRMED THE DECISION THRESHOLDFOR [place] DIAGNOSIS. Performed By: #### CMP, VALP, HSTROPN ####[facility] [id number] [place] [id number]. Devin ChangURINE MICROSCOPIC ONLYon [id number]UVLL SEENMemorial Health System Marietta Memorial HospitalComment on above:Performed By: #### CHUCKY, ERUR ####[facility] [address] [place], [place] [id number]. Devin ChangBacteria identified Cx Nom (U) INDICATEDNoalThMercy Health St. Anne HospitalComcovenant medical center on above:Performed By: #### CHUCKY, ERUR ####[facility] [address] [place] [id number]. Devin ChangCASTNONE SEENNormalNONE SEENMemorial Health System Marietta Memorial HospitalComcovenant medical center on above: Performed By: #### CHUCKY, ERUR ####[facility] Vwuaitqd[address] [place], [place] [address]Dr. Devin ChangCrystals LM Nom (Urine sed)SEENAbnormal NONE SEENThe [facility]ers HospitalComcovenant medical center on above:Performed By: #### CHUCKY ERUR ####[facility] [address]ds[address] [place] [address]Dr. Devin ChangEpithelial cells LM Ql (Urine sed)FEWAbnormalNONE SEEN /RAREThe [facility]ers HospitalComcovenant medical center on above:Performed By: #### CHUCKY, ERUR ####[facility] [address]is[address] [place] [address]Dr. Devin ChangMUCOUS NONE SEENNormalNONE SEENMemorial Health System [facility] HospitalComcovenant medical center on above:Performed By: #### CHUCKY, ERUR ####[facility] [address] [place] [id number]. Devin VfowfJHN1-8Zlfclyhn7-7Khy [facility]ers HospitalComment on above: Performed By: #### CHUCKY, ERUR ####[facility] [address]sprfyv[address] [place], [place]Dr. Devin SureshWBC (U) [#/Vol]/uLAbnormalNONE [facility] AdministrationComment on above:Performed By: #### MERCEDEZ LOCKE ####[facility] Rrckcskrrq[address] [place], [place]Dr. Devin SureshXR CHEST 1 Von 34-12-2235JZ CHEST 1 [facility] CenterCT HEAD WO CONon 48-74-4798PW HEAD WO CONNSCCI Hospital LimaCHEMISTRYOrdered By: Lab ROPUser on 09-64-1140Ojoqbut [Mass/Vol]66 mg/sKBsmrjh91 - 99 mg/dLFTMC POC SubsectionComment on above:Result Comment: Notified RN/MDPOC Device SN [id number] Interpretation CodeFTMC POC SubsectionPOC User [id number] Invalid Interpretation CodeFTMC POC SubsectionPOC UsernamLAURA Calderon Invalid Interpretation CodeFTMC POC SubsectionCHEMISTRYOrdered By: SYSTEM SYSTEM on 81-80-3098Xkamqiv [Mass/Vol]3.7 g/dLNormal3.3 - 5.0 gm/dLFTMC Remisol Albumin/Globulin [Mass ratio]1.2 {ratio}Normal1.1 - 2.2FTMC RemisolALP [Catalytic activity/Vol]76 [iU]/dLzidbn78 - 98 Int._Unit/LFTMC RemisolALT No additional P-5'-P [Catalytic activity/Vol]13 [iU]/dNormal6 - 46 Int._Unit/LFTMC RemisolAnion gap [Moles/Vol]12 mmol/LNormal6 - 16 mEq/LFTMC RemisolAST [Catalytic activity/Vol]15 [iU]/dNormal5 - 43 Int._Unit/LFTMC RemisolBilirubin [Mass/Vol]0.5 mg/dLNormal0.0 - 1.1 mg/dLFTMC RemisolBilirubin.direct [Mass/Vol] 0.1 mg/dLNormal0.1 - 0.4 mg/dLFTMC RemisolBilirubin.indirect [Mass or moles/Vol] 0.4 mg/dLNormal0.1 - 0.9 mg/dLFTMC RemisolCalcium [Mass/Vol]9.0 mg/dLNormal8.9 - 11.1 mg/dLFTMC RemisolChloride [Moles/Vol]105 mmol/ZJiflri760 - 111 mmol/LFTMC RemisolCO2 [Moles/Vol]25 mmol/OXusnte67 - 31 mmol/LFTMC RemisolCreatinine [Mass/Vol]0.7 mg/dLNormal0.5 - 1.3 mg/dLFTMC RemisolGFR/1.73 sq M.predicted among blacks MDRD (S/P/Bld) [Vol rate/Area]mL/min/1.73 w5Ifwfci>=59mL/min/1.73 m2FTMC Chem SGFR/1.73 sq M.predicted among non-blacks MDRD (S/P/Bld) [Vol rate/Area]mL/min/1.73 e8Miywwv>=59mL/min/1.73 m2FT Chem SGlobulin (S) [Mass/Vol]3.1 g/dLNormal1.4 - 4.0 gm/dLFTMC RemisolGlucose [Mass/Vol]81 mg/dL Kjtviz44 - 199 mg/dLFTMC RemisolLipase [Catalytic activity/Vol]29 U/MScuiyv46 - 58 unit/LFTMC RemisolPotassium [Moles/Vol]3.0 mmol/LLow3.5 - 5.3 mmol/LFTMC RemisolProtein [Mass/Vol]6.8 g/dLNormal6.0 - 7.8 gm/dLFTMC RemisolSodium [Moles/Vol]139 mmol/JGezjwq378 - 145 mmol/LFTMC RemisolUrea nitrogen [Mass/Vol] 12 mg/dLNormal5 - 21 mg/dLFTMC RemisolUrea nitrogen/Creatinine [Mass ratio]17 mg/koZhoqfl83 - 20FTMC RemisolHEMATOLOGYOrdered By: SYSTEM SYSTEM on 01-24-2022 Basophils/100 WBC (Bld)1.0 %Normal0.0 - 2.0 %[facility] HemeAutoSSBasophils/Leukocytes Auto (Bld) [Pure # fraction]0.1 E9/LNormal0.0 - 0.2 E9/LFTMC HemeAutoSS Eosinophils/100 WBC (Bld)1.4 %Normal0.0 - 8.0 %[facility] HemeAutoSS Eosinophils/Leukocytes Auto (Bld) [Pure # fraction]0.1 E9/LNormal0.0 - 0.5 E9/L [facility] HemeAutoSSLymphocytes/100 WBC (Bld)24.9 %Xrbriu58.0 - 50.0 %[facility] HemeAutoSS Lymphocytes/Leukocytes Auto (Bld) [Pure # fraction]2.2 E9/LNormal1.0 - 4.0 E9/L [facility] HemeAutoSSMonocytes/100 WBC (Bld)4.6 %Normal4.0 - 14.0 %[facility] HemeAutoSS Monocytes/Leukocytes Auto (Bld) [Pure # fraction]0.4 E9/LNormal0.2 - 1.0 E9/L [facility] HemeAutoSSNeutrophils/100 WBC (Bld)68.1 %Xsirug58.0 - 75.0 %[facility] HemeAutoSS Neutrophils/Leukocytes Auto (Bld) [Pure # fraction]6.1 E9/LNormal2.0 - 7.5 E9/L [facility] HemeAutoSSHEMATOLOGYOrdered By: Mansi Cortez on 82-37-3961Ekmqdlxhlbt distribution width (RBC) [Ratio]13.1 %Fwcafy51.9 - 14.2 %[facility] HemeAutoSS Hematocrit (Bld) [Volume fraction]38.2 %Ldqdns88.0 - 46.0 %[facility] HemeAutoSS Hemoglobin (Bld) [Mass/Vol]13.3 g/kIRdpzdj51.0 - 16.0 gm/dLFTMC HemeAutoSSMCH (RBC) [Entitic mass]30.6 xvCijvdo32.0 - 34.0 pgFTMC HemeAutoSSMCHC (RBC) [Mass/Vol]34.8 g/dMQahksf01.4 - 36.0 gm/dLFTMC HemeAutoSSMCV (RBC) [Entitic vol] 87.8 rKHttrzf65.0 - 100.0 fLFTMC HemeAutoSSPlatelet mean volume (Bld) [Entitic vol]6.8 fLNormal6.4 - 10.8 fLLINDSAY M[facility]IP[facility] HemeAutoSSPlatelets (Bld) [#/Vol]362.0 E9/L Ltsngv348.0 - 500.0 E9/LFALLIANCEHE[facility] HemeAutoSSRBC (Bld) [#/Vol]4.4 E12/LNormal4.3 - 5.9 E12/[facility] HemeAutoSSWBC corrected for nucl RBC Auto (Bld) [#/Vol]9.0 E9/LNormal 4.0 - 11.0 E9/[facility] HemeAutoSSSEROLOGYOrdered By: Lawrence Natarajan on 98-22-2391Vwso hCG QlNegative (01/24/22 11:10 AM)NormalLINDSAY [facility] [place] Man SeroURINALYSISOrdered By: Lawrence Natarajan on 18-15-4841Yugsgsfj LM Ql (Urine sed)Trace /HPFNormalTrace/HPFLINDSAY [facility]IP[facility] UA Auto SS Bilirubin Ql (U)Negative (01/24/22 12:40 PM)NormalNegativeLINDSAY [facility] UA Auto SSClarity (U)Clear (01/24/22 12:40 PM)NormalClearFALLIANCEHE[facility] UA Auto SSColor (U)Yellow (01/24/22 12:40 PM)NormalYellowLINDSAY M[facility]IP[facility] UA Auto SSEpithelial cells.squamous LM.HPF (Urine sed) [#/Area]5-8 /HPFNormal0-2/HPFLINDSAY M[facility]IP[facility] UA Auto SSGlucose Test strip (U) [Mass/Vol]Negative (01/24/22 12:40 PM)NormalNegativeLINDSAY [facility] UA Auto SSHemoglobin Ql (U)Negative (01/24/22 12:40 PM)NormalNegativeLINDSA[facility] UA Auto SSKetones (U) [Mass/Vol]Negative (01/24/22 12:40 PM)NormalNegativeLINDSA[facility] UA Auto SSLithium.plasma/[place].RBC (Bld) [Mass ratio]0-3 /HPFNormal0-3/HPFLINDSAY M[facility]IP[facility] UA Auto SSNitrite Ql (U)Negative (01/24/22 12:40 PM)NormalNegativeLINDSA[facility] UA Auto SSpH (U)6.0 *NA* (01/24/22 12:40 PM)Invalid Interpretation Code5.0 - 9.0L[facility] UA Auto SSProtein (U) [Mass/Vol]Trace *ABN* (01/24/22 12:40 PM)Invalid Interpretation CodeNegativeLINDSAY [facility] [place] UA Auto SSSpecific gravity (U) [Rel density]1.010 *NA* (01/24/22 12:40 PM)Invalid Interpretation Code1.005 - 1.030L[facility] UA Auto SSUA Spec DescClean Catch (01/24/22 12:40 PM)NormalLINDSAY [facility]IP[facility] [place] UA Auto SSUrobilinogen Qn (U)0.1709290 {Sheyla'U}/dLNormal0.0 - 1.0 EU/dLLINDSAY M[facility]ICIP[facility] [place] UA Auto SSWBC Auto Ql (U)Negative (01/24/22 12:40 PM)NormalNegativeLINDSAY [facility] UA Auto SSWBC LM.HPF (Urine sed) [#/Area]0-5 /HPFNormal0-5/HPFLINDSAY M[facility]IPAL [facility] [place] UA Auto SSCHEMISTRYOrdered By: SYSTEM SYSTEM on 02-52-2836Govdwmoq I.cardiac [Mass/Vol]4.80 pg/mLLow10.10 - 27.10 pg/mLFT RemisolTroponin I.cardiac [Mass/Vol]4.40 pg/mLLow10.10 - 27.10 pg/mLLINDSAY [facility] [place] Remisol Albumin [Mass/Vol]3.3 g/dLNormal3.3 - 5.0 gm/dLLINDSAY [facility] RemisolAlbumin/Globulin [Mass ratio]1.1 {ratio}Normal1.1 - 2.2FT[facility] RemisolALP [Catalytic activity/Vol]75 [iU]/zPbfizh77 - 98 Int._Unit/LFTMC RemisolALT No additional P-5'-P [Catalytic activity/Vol]13 [iU]/dNormal6 - 46 Int._Unit/LFTMC RemisolAnion gap [Moles/Vol] 12 mmol/LNormal6 - 16 mEq/LFTMC RemisolAST [Catalytic activity/Vol]14 [iU]/d Normal5 - 43 Int._Unit/LFTMC RemisolBilirubin [Mass/Vol]0.3 mg/dLNormal0.0 - 1.1 mg/dLMC RemisolBilirubin.direct [Mass/Vol]0.1 mg/dLNormal0.1 - 0.4 mg/dLFTMC RemisolBilirubin.indirect [Mass or moles/Vol]0.2 mg/dLNormal0.1 - 0.9 mg/dLFTMC RemisolCalcium [Mass/Vol]8.7 mg/dLLow8.9 - 11.1 mg/dLFTMC RemisolChloride [Moles/Vol]104 mmol/JIyvhfa846 - 111 mmol/LFTMC RemisolCO2 [Moles/Vol]27 mmol/L Oqsmje25 - 31 mmol/LFTMC RemisolCreatinine [Mass/Vol]0.8 mg/dLNormal0.5 - 1.3 mg/dLFTMC RemisolGFR/1.73 sq M.predicted among blacks MDRD (S/P/Bld) [Vol rate/Area]mL/min/1.73 e9Nphqzf>=59mL/min/1.73 m2[facility] Chem SGFR/1.73 sq M.predicted among non-blacks MDRD (S/P/Bld) [Vol rate/Area]mL/min/1.73 q0Pzlufa >=59mL/min/1.73 m2[facility] Chem SGlobulin (S) [Mass/Vol]2.9 g/dLNormal1.4 - 4.0 gm/dLFTMC RemisolGlucose [Mass/Vol]137 mg/ePFgilmu52 - 199 mg/dLFTMC Remisol Magnesium [Mass/Vol]1.2 mg/dLLow1.3 - 2.4 mg/dLFTMC RemisolPotassium [Moles/Vol] 3.5 mmol/LNormal3.5 - 5.3 mmol/LFTMC RemisolProtein [Mass/Vol]6.2 g/dLNormal6.0 - 7.8 gm/dLFTMC RemisolSodium [Moles/Vol]139 mmol/XBskmbz195 - 145 mmol/LFTMC RemisolTroponin I.cardiac [Mass/Vol]5.40 pg/mLLow10.10 - 27.10 pg/mLFTMC Remisol Urea nitrogen [Mass/Vol]13 mg/dLNormal5 - 21 mg/dLFTMC RemisolUrea nitrogen/Creatinine [Mass ratio]16 mg/dyJktphy61 - 20FT RemisolCHEMISTRY Ordered By: Lab ROPUser on 09-37-3271Sanyopn [Mass/Vol]178 mg/qBDbnc72 - 99 mg/dLLINDSAY [facility] POC SubsectionPOC Device [id number] Interpretation CodeLINDSAY MUNICIPAL [facility] POC SubsectionPOC User [id number] Interpretation CodeLINDSAY M[facility]ICIPAL [facility]OS[facility] POC SubsectionPOC UsernameMICHOLAS, ASHLEYInvalid Interpretation CodeLINDSAY M[facility]ICIPAL [facility] POC SubsectionCHEMISTRYOrdered By: Shannen Sosa on 19-20-8143Semqzuqfiwl peptide B (Bld) [Mass/Vol]17 pg/mLNormal5 - 80 pg/mLFTMC HemeManSSCOAGULATIONOrdered By: Karen Murphy on 68-79-5387zRKG Coag (PPP) [Time]36.7 sHigh25.1 - 36.5 second(s)[facility] Auto CoagFibrin D-dimer FEU (PPP) [Mass/Vol]494 ng/mL SUPBepgua904 - 500 ng/mL FEUFC Auto CoagINR Coag (PPP) [Relative time]1.0 {INR}Invalid Interpretation CodeLINDSAY MUNICIPAL [facility]OS[facility] Auto CoagPT Coag (PPP) [Time]10.5 sNormal9.4 - 12.5 second(s)[facility] Auto CoagHEMATOLOGYOrdered By: SYSTEM SYSTEM on 01-09-2022 Basophils/100 WBC (Bld)0.5 %Normal0.0 - 2.0 %[facility] HemeAutoSSBasophils/Leukocytes Auto (Bld) [Pure # fraction]0.0 E9/LNormal0.0 - 0.2 E9/LFTMC HemeAutoSS Eosinophils/100 WBC (Bld)1.9 %Normal0.0 - 8.0 %[facility] HemeAutoSS Eosinophils/Leukocytes Auto (Bld) [Pure # fraction]0.1 E9/LNormal0.0 - 0.5 E9/L [facility] HemeAutoSSLymphocytes/100 WBC (Bld)25.4 %Gveaca68.0 - 50.0 %[facility] HemeAutoSS Lymphocytes/Leukocytes Auto (Bld) [Pure # fraction]1.8 E9/LNormal1.0 - 4.0 E9/L [facility] HemeAutoSSMonocytes/100 WBC (Bld)6.2 %Normal4.0 - 14.0 %[facility] HemeAutoSS Monocytes/Leukocytes Auto (Bld) [Pure # fraction]0.4 E9/LNormal0.2 - 1.0 E9/L [facility] HemeAutoSSNeutrophils/100 WBC (Bld)66.0 %Lzfsjr67.0 - 75.0 %[facility] HemeAutoSS Neutrophils/Leukocytes Auto (Bld) [Pure # fraction]4.6 E9/LNormal2.0 - 7.5 E9/L [facility] HemeAutoSSHEMATOLOGYOrdered By: Shannen Sosa on 96-77-0781Wonzjfpvjul distribution width (RBC) [Ratio]13.3 %Zbispc43.9 - 14.2 %[facility] HemeAutoSS Hematocrit (Bld) [Volume fraction]38.6 %Mahbpe53.0 - 46.0 %[facility] HemeAutoSS Hemoglobin (Bld) [Mass/Vol]13.0 g/iBEibjnl61.0 - 16.0 gm/dLFTMC HemeAutoSSMCH (RBC) [Entitic mass]29.7 hfOqqqol25.0 - 34.0 pgFTMC HemeAutoSSMCHC (RBC) [Mass/Vol]33.7 g/pTOauxah05.4 - 36.0 gm/dLFTMC HemeAutoSSMCV (RBC) [Entitic vol] 88.2 fKGricdv59.0 - 100.0 fLFTMC HemeAutoSSPlatelet mean volume (Bld) [Entitic vol]7.6 fLNormal6.4 - 10.8 fLFTMC HemeAutoSSPlatelets (Bld) [#/Vol]278.0 E9/L Omlici294.0 - 500.0 E9/LFTMC HemeAutoSSRBC (Bld) [#/Vol]4.4 E12/LNormal4.3 - 5.9 E12/LFTMC HemeAutoSSWBC corrected for nucl RBC Auto (Bld) [#/Vol]6.9 E9/LNormal 4.0 - 11.0 E9/LFTMC HemeAutoSSURINALYSISOrdered By: Karen Murphy on 99-86-7905Dtvfdrue LM Ql (Urine sed)Trace /HPFNormalTrace/HPFLINDSAY [facility] UA Auto SS Bilirubin Ql (U)Negative (01/09/22 1:58 PM)NormalNegativeLINDSAY [facility]IP[facility] UA Auto SSClarity (U)Slightly Cloudy *ABN* (01/09/22 1:58 PM)Invalid Interpretation CodeClearFALLIANCEHE[facility] UA Auto SSColor (U)Yellow (01/09/22 1:58 PM)NormalYellowLINDSAY MUNICIPAL [facility] UA Auto SSEpithelial cells.squamous LM.HPF (Urine sed) [#/Area]5-8 /HPFNormal0-2/HPFLINDSAY M[facility]ICIPAL [facility] UA Auto SSGlucose Test strip (U) [Mass/Vol]1+ *ABN* (01/09/22 1:58 PM)Invalid Interpretation CodeNegativeLINDSAY [facility]IP[facility] UA Auto SSHemoglobin Ql (U)Negative (01/09/22 1:58 PM)NormalNegativeLINDSAY [facility] UA Auto SSKetones (U) [Mass/Vol]Negative (01/09/22 1:58 PM)NormalNegativeLINDSAY [facility] UA Auto SSLithium.plasma/[place].RBC (Bld) [Mass ratio]0-3 /HPFNormal0-3/HPFLINDSAY M[facility]ICIPAL [facility] UA Auto SSMucus Ql (Urine sed)Trace (01/09/22 1:58 PM)NormalLINDSAY M[facility]ICIPAL [facility] UA Auto SSNitrite Ql (U)Negative (01/09/22 1:58 PM)NormalNegativeLINDSAY [facility] UA Auto SSpH (U)6.0 *NA* (01/09/22 1:58 PM)Invalid Interpretation Code5.0 - 9.0L[facility] UA Auto SSProtein (U) [Mass/Vol]Negative (01/09/22 1:58 PM)NormalNegativeLINDSAY [facility] UA Auto SSSpecific gravity (U) [Rel density] >=1.030 *NA* (01/09/22 1:58 PM)Invalid Interpretation Code1.005 - 1.030L[facility] UA Auto SSUA Spec DescClean Catch (01/09/22 1:58 PM)NormalLINDSAY M[facility]ICIPAL [facility] UA Auto SSUrobilinogen Qn (U)0.6090820 {Sheyla'U}/dLNormal0.0 - 1.0 EU/dLLINDSAY MUNICIPAL [facility]OS[facility] UA Auto SSWBC Auto Ql (U)Negative (8/18/22 1:58 PM)NormalNegativeLINDSAY [facility] UA Auto SSWBC LM.HPF (Urine sed) [#/Area]0-5 /HPFNormal0-5/HPFFT UA Auto SSCULTURE URINEon 46-90-7167UEILDEV URINENormal The [facility] HospitalComment on above:Performed By: #### URCX ####[facility] [address]cnivep[address] [place] [address]Dr. Devin Suresh CARDIAC LAURA 3-6on 54-05-8673ZL [Catalytic activity/Vol]38 U/AKshoqz72-717Yjm [facility] HospitalComment on above:Performed By: #### CMREP ####[facility] Zcericgbqr[address] [place], [place] [address]Dr. Devin SureshCK.MB [Mass/Vol]0.86 ng/mLNormal<=3.60The [facility]ers HospitalComment on above:Performed By: #### CMREP ####[facility] Zbkovrvnwl[address] [place], [place] [address]Dr. Devin SureshHSTROP7.8 pg/mLNormal4.0-51.3The [facility] Comment on above:Result Comment: CUT-OFF POINTS HAVE BEEN ESTABLISHED BASED ON THE FOURTH UNIVERSAL DEFINITIONS OF MYOCARDIALINFARCTION. THE UPPER REFERENCE LIMIT (URL) OF TROPONIN, DEFINED THE 99TH PERCENTILE OFcTnI DISTRIBUTION IN A REFERENCE POPULATION, HAS BEEN CONFIRMED THE DECISION THRESHOLDFOR [place] DIAGNO SIS.Performed By: #### CMREP ####[facility] Pmaygpvugp[address] [place], [place] [address]Dr. Devin ChangCT ABD/PELVIS WO CONon 60-67-7660AO ABD/PELVIS WO CONNSCCI Hospital LimaCT HEAD WO CONon 06-55-6017MZ HEAD WO CONNSCCI Hospital LimaER URINE PROFILEon 87-81-7170Ucwfjbbck Ql (U) SMALLAbnormalNEGATIVEMemorial Health System Marietta Memorial HospitalComment on above:Performed By: #### MERCEDEZ LOCKE ####[facility] [address]qcoifwvbw[address] [place], [place] [address]Dr. Devin ChangClarity (U)CLEARNormalCLEARMemorial Health System Marietta Memorial HospitalComment on above:Performed By: #### SAMANTHA LOCKER ####[facility] [address]wnqlpbssi[address] [place], [place]Dr. Yilan ChangColor (U)YELLOWNormalYELLOWMemorial Health System Marietta Memorial HospitalComment on above:Performed By: #### SAMANTHA LOCKER ####[facility] Dnprhubjnj[address] [place], [place]Dr. Yilan ClarenceRUAHD A micrscopic examination will be performed if indicated.NormalThe [facility] HospitalComment on above:Performed By: #### SAMANTHA LOCKER ####[facility] Ydavfluwom[address] [place], [place]Dr. Tishlan ChangGlucose Ql (U) >1000AbnormalNEGATIVEMemorial Health System Marietta Memorial HospitalComment on above:Performed By: #### SAMANTHA LOCKER ####[facility] Tubhlccpuk[address] [place], [place] [address]Tp. Tishlan ChangHemoglobin Ql (U)SMALLAbnormalNEGSelect Medical Specialty Hospital - [facility] Comment on above:Performed By: #### SAMANTHA LOCKER ####[facility] Onicfdcccm[address] [place] [id number]. Tishlan ChangKetones Ql (U) 15 mg/dlAbnormalNEGATIVEMemorial Health System Marietta Memorial HospitalComment on above:Performed By: #### SAMANTHA LOCKER ####[facility] Tvofyxhkap[address] [place] [id number]. Tishlan ChangLEUKOCYTESSMALLAbnormalNEGSelect Medical Specialty Hospital - [place] Comment on above:Performed By: #### SAMANTHA LOCKER ####[facility] Qveqyjtzmo[address] [place] [id number]. Tishlan ChangNitrite Ql (U) PositiveAbnormalNEGATIVEMemorial Health System Marietta Memorial HospitalComment on above:Performed By: #### CHUCKY ERUR ####[facility] Yxqlshfqhi[address] [place] [phone]. iTshlan ChangpH (U)5.0 [pH]Normal5-9The [facility] HospitalComment on above:Performed By: #### SAMANTHA LOCKER ####[facility] Ytxevpwrbu5076 [address] Devin ChangProtein (U) [Mass/Vol]100 mg/dL AbnormalNEGATIVE/ TRACEThe [facility] HospitalComment on above:Performed By: #### SAMANTHA LOCKER ####[facility] Cdyabrzisi[address] [place] [address]Dr. Yiemily ChangSPEC GRAVITY>=1.458Gdnxpqqi9.005-<=1.025The [facility]ers HospitalComment on above:Performed By: #### SAMANTHA LOCKER ####[facility] Lkesienewp6856 [address] Devin SureshUR MICRO IND INDICATEDNormalThe [facility]riners HospitalComment on above:Performed By: #### SAMANTHA LOCKER ####[facility] Ahirrifosf[address] [place], [place] [address]r. Devin ChangUrobilinogen Qn (U)0.2 {Sheyla'U}/dLNormal0.2 - 1.0The [facility]ers HospitalComment on above:Performed By: #### MERCEDEZ LOCKE ####[facility] Buoggyfyun[address] [place], [place] [address]r. Devin ChangLACTATE/LACTIC ACIDon 17-63-2837Xpotget [Moles/Vol]1.1 mmol/LNormal0.4-1.9The [facility] Comment on above:Performed By: #### LACT ####[facility] Jcumalbnxp[address] [place], [place] [address]Dr. Devin SureshURINE MICROSCOPIC ONLYon 14-04-5904OUOXRIDHIEIPJIvhtcnysHBYW SEENThe [facility]ers HospitalComment on above: Performed By: #### SAMANTHA LOCKER ####[facility] Nmtjhkgcni[address] [place], [place] [address]r. Devin ChangBacteria identified Cx Nom (U)INDICATED NormalThe [facility]riners HospitalComment on above:Performed By: #### MERCEDEZ LOCKE ####[facility] Lukkiqxghr[address] [place], [place]Dr. Devin ChangCASTNONE SEENNormalNONE SEENMemorial Health System Marietta Memorial HospitalComcovenant medical center on above: Performed By: #### CHUCKY ERUR ####[facility] Hzhmoqpxzh95[address] [place], [place]Dr. Devin SureshCrystals LM Nom (Urine sed)NONE SEEN NormalNONE SEENThe [facility]riners HospitalComcovenant medical center on above:Performed By: #### CHUCKY, ERUR ####[facility] Asqtxslssv[address] [place], [place]Dr. Devin ChangEpithelial cells LM Ql (Urine sed)FEWAbnormalNONE SEEN /RAREThe [facility]riners HospitalComcovenant medical center on above:Performed By: #### CHUCKY ERUR ####[facility] [address]uncyqrxv[address] [place] [id number]. Devin SureshMUCOUS NONE SEENNormalNONE SEENMemorial Health System Marietta Memorial HospitalComcovenant medical center on above:Performed By: #### CHUCKY ERUR ####[facility] Apkmocsjvi[address] [place] [id number]. Devin SureshOwybmMHD8-5Hzklhx2-0Qdq [facility] HospitalComcovenant medical center on above: Performed By: #### CHUCKY ERUR ####[facility] Hgcdtaoxtu[address] [place] [id number]. Devin SureshWBC5-10AbnormalNONE SEENMemorial Health System Marietta Memorial HospitalComcovenant medical center on above:Performed By: #### CHUCKY ERUR ####[facility] [address] [place], [place]Dr. Devin SureshXR CHEST 1 Von [id number] CHEST 1 VNormalThe [facility] HospitalCARDIAC LAURA ADMITon 01-01-2022 CK [Catalytic activity/Vol]40 U/LZglxmp15-380Ygl [facility] on above:Performed By: #### BMP, CMADM ####[facility] [address] [place], [place] [address]Tp. Devin Walden.MB [Mass/Vol]0.95 ng/mLNormal <=3.60The [facility] HospitalComment on above:Performed By: #### ALEXIA CMADM ####[facility] [address] [place], [place] [address]Dr. Yilan ChangHSTROP6.7 pg/mLNormal4.0-51.3The [facility] HospitalComment on above: Result Comment: CUT-OFF POINTS HAVE BEEN ESTABLISHED BASED ON THE FOURTH UNIVERSAL DEFINITIONS OF MYOCARDIALINFARCTION. THE UPPER REFERENCE LIMIT (URL) OF TROPONIN, DEFINED THE 99TH PERCENTILE OFcTnI DISTRIBUTION IN A REFERENCE POPULATION, HAS BEEN CONFIRMED THE DECISION THRESHOLDFOR [place] DIAGNOSIS. Performed By: #### TASNEEM HALEDM ####[facility] [address] [place], [place] [address]Dr. Yilan SldruUBO67 ng/mLNormal9-82The [facility] HospitalComment on above:Performed By: #### TASNEEM HALEDM ####[facility] Qnvpq[address] [place], [place] [address]Dr. Yilan ChangCBC AUTO DIFF on [id number] #0.1 103/ulNormal0.0-0.1The [facility] HospitalComment on above: Performed By: #### CBC ####[facility] [address] [place], [place] [address]Dr.Yilan ChangBasophils/100 WBC (Bld)0.5 %Normal 0.2-2.0The [facility] HospitalComment on above:Performed By: #### CBC ####[facility] [address] [place], [place] [address]Dr.Yilan ChangEO # 0.1 103/ulNormal0.0-0.7The [facility] HospitalComment on above:Performed By: #### CBC ####[facility] [address] [place], [place] [address]Dr. Yilan ChangEosinophils/100 WBC (Bld)0.7 %Critically low0.9-7.0The [facility] HospitalComment on above:Performed By: #### CBC ####[facility] [address]fe[address] [place], [place] [address]Dr.Tishemily ChangErythrocyte distribution width (RBC) [Ratio]12.5 %Osclvu40.0-15.0The [facility] Comment on above:Performed By: #### CBC ####[facility] [address] [place] [address]Dr.iTshemily ChangHematocrit (Bld) [Volume fraction]43.0 %Ddnaqw66.0-48.0The [facility] HospitalComment on above:Performed By: #### CBC ####[facility] [address] [place], [place] [address]Dr.Tishemily ChangHemoglobin (Bld) [Mass/Vol]15.2 g/yDIrgyhd10.0-16.0The [facility] HospitalComment on above:Performed By: #### CBC ####[facility] [address] [place], [place] [address]Dr.Yilan ChangIG #0.05 10e3/ulCritically high0.00-0.03The [facility] HospitalComment on above:Performed By: #### CBC ####[facility] [address] [place], [place] [address]Dr.Yiemily ChangIG %0.4 %Normal0.0-0.5The [facility] HospitalComment on above: Performed By: #### CBC ####[facility] [address] [place], [place] [address]Dr.Tishlan ChangLYMPH #2.0 103/ulNormal1.2-3.8The [facility] HospitalComment on above:Performed By: #### CBC ####[facility] [address] [place], [place] [address]Dr.Yilan ChangLymphocytes/100 WBC (Bld)15.1 %Critically low20.5-60.0The [facility] Shriners HospitalComment on above: Performed By: #### CBC ####[facility] Spfsergsmg[address] [place], [place] [address]Dr.Tishlan ChangMANUAL DIFF REQNONormalThe [facility] Shriners HospitalComment on above:Performed By: #### CBC ####[facility] Zbxlapzbvn[address] [place] [address]Dr.Devin KerwinH (RBC) [Entitic mass]30.2 oxNclzwk94.7-34.0The [facility]riners HospitalComment on above: Performed By: #### CBC ####[facility] Tsjkiwqinf[address] [place] [address]Dr.Devin KerwinHC (RBC) [Mass/Vol]35.3 g/dLCritically high29.9-35.2The [facility]ers HospitalComment on above:Performed By: #### CBC ####[facility] Xzcdevuuhp13[address] [place] [address]Dr. Devin SureshV (RBC) [Entitic vol]85.3 jDPwmrzw42.0-99.0[facility] Comment on above:Performed By: #### CBC ####[facility] Dtzdvdiwig[address] [place], [place] [address]Dr.Devin SureshMONO #0.7 103/ulNormal0.3-0.8 The [facility]riners HospitalComment on above:Performed By: #### CBC ####[facility] Xqekolcipc[address] [place], [place] [address]Dr.Devin Suresh Monocytes/100 WBC (Bld)5.6 %Normal1.7-12.0The [facility]riners HospitalComment on above: Performed By: #### CBC ####[facility] Bufstfcswx8[address] [place], [place] [address]Dr.Devin SureshNEUT #10.2 103/ulCritically high1.4-6.5 The [facility]riners HospitalComment on above:Performed By: #### CBC ####[facility] Rrwuhxkopw[address] [place], [place] [address]Dr.Devin Suresh Neutrophils/100 WBC (Bld)77.7 %Critically high43.0-75.0[facility] Comment on above:Performed By: #### CBC ####[facility] Klhryxmmqy55[address] [place], [place] [address]Dr.Devin SureshPlatelet mean volume (Bld) [Entitic vol]9.1 fLCritically low9.5-13.5The [facility]ers HospitalComment on above: Performed By: #### CBC ####[facility] Hxvjcqfqfl58[address] [place], [place] [address]De.Devin SureshPLT420 103/zpSkqfzu991-348Fty [facility] HospitalComment on above:Performed By: #### CBC ####[facility] Juovguqzgw6[address] [place] [id number].Devin SureshRBC5.04 106/ul Normal4.20-5.40The [facility]ers HospitalComment on above:Performed By: #### CBC ####[facility] Wwhivmorqh9669 [place], [place] [address]Yp. Devin SureshWBC13.1 103/ulCritically high4.0-11.0The [facility]ers HospitalComment on above:Performed By: #### CBC ####[facility] Fdzmkwzzfa17[address] [place] [address]Dr.Devin SureshCovid-19 PCR (CVDTBH)on 01-01-2022 SARS-CoV-2 (COVID-19) RNA EBONIE+probe Ql (Unsp spec)Not detectedNormalNOT DETECTED [facility] on above:Result Comment: When diagnostic testing [...] for this test is supported by the [place] of Health and Human Service's declaration that [...] no longer be used).Performed By: #### CVDTBH ####[facility] Kympktiqig99[address] [place] [address]Dr. Devin ChangD-DIMERon 45-13-4337S-DIMER0.36 mg/L FEUNormal<=0.59[facility] on above: Performed By: #### DDIM ####[facility] Jddxinkndf[address] [place], [place] [address]Dr. Yilan ChangD-DIMER COMMENTSSEE BELOWNormalThMercy Health St. Anne HospitalComcovenant medical center on above:Result Comment: Increases in D-Dimer concentration [...] stress, and generalized hospitalization.Performed By: #### DDIM ####[facility] Zdbvqfhquy5[address] [place], [place] [address]Dr. Yilan ChangLACTATE/LACTIC ACIDon 06-41-6802Ilnseua [Moles/Vol]1.8 mmol/LNormal 0.4-1.9[facility] on above:Performed By: #### LACT ####[facility] Ligsuffbnd9[address] [place], [place] [address]Dr. Devin ChangPROF CHEM 8 (BAS METB)on 43-28-4821Gtsze gap [Moles/Vol]16.5 mmol/L NormalThe [facility] on above:Performed By: #### BMP, CMADM ####[facility] Gythufxnsb8720[address] [place], [place] [address]Dr. Tishlan ChangCalcium [Mass/Vol]9.9 mg/dLNormal8.5-10.1[facility] on above:Performed By: #### BMP, CMADM ####[facility] Mbjmsmlsgj204[address] [place], [place] [address]Dr. Yilan ChangChloride [Moles/Vol]98 mmol/L Jqjvgr84-972Rix Livonia HospitalComment on above:Performed By: #### ALEXIA, CMADM ####[facility] Xyaovpxvod124[address] [place], [place] [address]Dr. Yilan ChangCO2 [Moles/Vol]25.6 mmol/WLorqrk97.0-32.0The [facility] HospitalComment on above:Performed By: #### ALEXIA, CMADM ####[facility] Slnzluiose[address] [place], [place] [address]Dr. Yilan ChangCreatinine [Mass/Vol]1.18 mg/dLCritically high0.55-1.02The [facility] HospitalComment on above:Performed By: #### ALEXIA, CMADM ####[facility] Jplqnnveii7[address] [place], [place] [address]Dr. Yilan ChangEGFR-AF PZFLVJBT96 mL/min/1.62x7Orewcp>=60The [facility]ers HospitalComment on above:Performed By: #### ALEXIA, CMADM ####[facility] Bmppiqozfh032[address] [place], [place] [address]Dr. Yilan ChangEGFR-NON AF YSBVFXXF52 mL/min/1.89w2Ictrnvnhtm low>=60The [facility] HospitalComment on above: Performed By: #### ALEXIA, CMADM ####[facility] Yzbxxdzvvg68[address] [place], [place] [address]Dr. Yilan ChangGlucose [Mass/Vol]166 mg/dLCritically ingo79-525Mdk [facility] HospitalComment on above:Performed By: #### ALEXIA, CMADM ####[facility] Cechcjfzng25[address] [place], [place] [address]Dr. Yilan ChangPotassium [Moles/Vol]3.1 mmol/LCritically low3.5-5.1The [facility]ers HospitalComment on above:Performed By: #### ALEXIA, CMADM ####[facility] Ewomjttxge92[address] [place], [place] [address]Dr. Yilan ChangSodium [Moles/Vol]137 mmol/EXacscy406-428Leb [facility] HospitalComment on above: Performed By: #### ALEXIA, CMADM ####[facility] Maqvmtdhqt[address] [place] [address]Xn. Devin ChangUrea nitrogen [Mass/Vol]12.0 mg/dL Normal7.0-18.0The [facility]riners HospitalComment on above:Performed By: #### ALEXIA, HOWARD ####[facility] Wsiuixxmiq5488 [place], [place] [address]Dr. Devin ChangUrea nitrogen/Creatinine [Mass ratio]10.2 mg/mgNormalThe [facility]riners HospitalComment on above:Performed By: #### ALEXIA, CMAJONNY ####[facility] Hwjshqnghd9568 [place], [place] [address]At. eDvin Suresh CHEMISTRYOrdered By: SYSTEM SYSTEM on 79-80-9851Nrqoovqyjcgo Screen method >1000 ng/mL Ql (U)Negative (12/08/21 11:54 AM)NormalNegativeLINDSA[facility] [place] RemisolBarbiturates Screen Ql (U)Negative (12/08/21 11:54 AM)NormalNegativeFT[facility] RemisolBenzodiazepines Ql (U)Negative (12/08/21 11:54 AM)NormalNegativeFTMC RemisolCocaine Ql (U)Negative (12/08/21 11:54 AM)NormalNegativeFT[facility] RemisolOpiates Screen Ql (U)Negative (12/08/21 11:54 AM)NormalNegativeLINDSA[facility] [place] RemisolPhencyclidine Screen method >25 ng/mL Ql (U)Negative (12/08/21 11:54 AM)NormalNegativeFTMC RemisolTetrahydrocannabinol Screen method >50 ng/mL Ql (U)Negative (12/08/21 11:54 AM)NormalNegativeFT[facility] RemisolAnion gap [Moles/Vol]13 mmol/LNormal 6 - 16 mEq/LFTMC RemisolCalcium [Mass/Vol]9.4 mg/dLNormal8.9 - 11.1 mg/dLFTMC RemisolChloride [Moles/Vol]103 mmol/EDspigv238 - 111 mmol/LFTMC RemisolCO2 [Moles/Vol]26 mmol/MEbhwqw64 - 31 mmol/LFTMC RemisolCreatinine [Mass/Vol]0.9 mg/dLNormal0.5 - 1.3 mg/dLFTMC RemisolGFR/1.73 sq M.predicted among blacks MDRD (S/P/Bld) [Vol rate/Area]mL/min/1.73 v6Zxphdj>=59mL/min/1.73 m2[facility] Chem S GFR/1.73 sq M.predicted among non-blacks MDRD (S/P/Bld) [Vol rate/Area] mL/min/1.73 t8Chdjnj>=59mL/min/1.73 m2[facility] Chem SGlucose [Mass/Vol]236 mg/dLHigh 55 - 199 mg/dLFTMC RemisolMagnesium [Mass/Vol]1.4 mg/dLNormal1.3 - 2.4 mg/dLFTMC RemisolPotassium [Moles/Vol]3.8 mmol/LNormal3.5 - 5.3 mmol/LFTMC RemisolSodium [Moles/Vol]138 mmol/ZQzruco051 - 145 mmol/LFTMC RemisolUrea nitrogen [Mass/Vol] 16 mg/dLNormal5 - 21 mg/dLFTMC RemisolUrea nitrogen/Creatinine [Mass ratio]18 mg/cuPpuxke83 - 20[facility] RemisolHEMATOLOGYOrdered By: SYSTEM SYSTEM on 12-08-2021 Basophils/100 WBC (Bld)0.7 %Normal0.0 - 2.0 %[facility] HemeAutoSSBasophils/Leukocytes Auto (Bld) [Pure # fraction]0.1 E9/LNormal0.0 - 0.2 E9/LFTMC HemeAutoSS Eosinophils/100 WBC (Bld)2.6 %Normal0.0 - 8.0 %[facility] HemeAutoSS Eosinophils/Leukocytes Auto (Bld) [Pure # fraction]0.2 E9/LNormal0.0 - 0.5 E9/L [facility] HemeAutoSSLymphocytes/100 WBC (Bld)24.8 %Hrefjs25.0 - 50.0 %[facility] HemeAutoSS Lymphocytes/Leukocytes Auto (Bld) [Pure # fraction]1.9 E9/LNormal1.0 - 4.0 E9/L [facility] HemeAutoSSMonocytes/100 WBC (Bld)6.9 %Normal4.0 - 14.0 %[facility] HemeAutoSS Monocytes/Leukocytes Auto (Bld) [Pure # fraction]0.5 E9/LNormal0.2 - 1.0 E9/L [facility] HemeAutoSSNeutrophils/100 WBC (Bld)65.0 %Tdqgow59.0 - 75.0 %[facility] HemeAutoSS Neutrophils/Leukocytes Auto (Bld) [Pure # fraction]5.0 E9/LNormal2.0 - 7.5 E9/L [facility] HemeAutoSSHEMATOLOGYOrdered By: Mansi Cortez on 34-68-7319Ytsrthubkks distribution width (RBC) [Ratio]12.6 %Oplmtk04.9 - 14.2 %[facility] HemeAutoSS Hematocrit (Bld) [Volume fraction]39.5 %Otnotw47.0 - 46.0 %[facility] HemeAutoSS Hemoglobin (Bld) [Mass/Vol]13.7 g/qCYvrfou39.0 - 16.0 gm/dLFTMC HemeAutoSSMCH (RBC) [Entitic mass]30.5 pxUsdkab49.0 - 34.0 pgFTMC HemeAutoSSMCHC (RBC) [Mass/Vol]34.7 g/tQQjoutq58.4 - 36.0 gm/dLFTMC HemeAutoSSMCV (RBC) [Entitic vol] 87.7 lGOgflyk12.0 - 100.0 fLFTMC HemeAutoSSPlatelet mean volume (Bld) [Entitic vol]7.3 fLNormal6.4 - 10.8 fLFTMC HemeAutoSSPlatelets (Bld) [#/Vol]306.0 E9/L Apbqky925.0 - 500.0 E9/LFTMC HemeAutoSSRBC (Bld) [#/Vol]4.5 E12/LNormal4.3 - 5.9 E12/LFTMC HemeAutoSSWBC corrected for nucl RBC Auto (Bld) [#/Vol]7.7 E9/LNormal 4.0 - 11.0 E9/LFTMC HemeAutoSSMicroscopic Urinalysison 10-41-4820Zjkmbpjr, UAFEW AbnormalNegative /HPFBON SECTRIHEALTH GOOD SAMARITAN HOSPITALEpithelial Cells, UA3-5/HPFBON SECTRIHEALTH GOOD SAMARITAN HOSPITALRBC, UA0-2B[facility] SECTRIHE[facility] GOOD SAMARITAN HOSPITALWBC, UA3-5B[facility]ITALNo Panel Informationon 37-92-4033Ayynouynlkmfrh and review of laboratory resultsAbnormalBON [facility] Drug Screen Rapidon 56-30-3923Fioh Screen Commentsee belowNoUniversity Hospitals Beachwood Medical CenterComment on above:Result Comment: This method is a screening test to detect only these drug classes as part of a medical workup. Confirmatory testing by another method should be ordered if clinically indicated.Performed By: #### UDSNC #### [facility] [address] [place] [address] KT Amphetamines Rapid ScreenNegativeNormalNegative <[facility] HospitalComment on above:Result Comment: Effective: 12/07/17 Methodology and/or Reference Range-Cutoff has changed.Performed By: #### UDSNC #### [facility] [address] [place] [address] ZE Barbiturates Rapid ScreenNegativeNormalNegative <[facility] HospitalComment on above:Result Comment: Effective: 12/07/17 Methodology and/or Reference Range-Cutoff has changed.Performed By: #### UDSNC #### [facility] [address] [place] [address] WP Benzo Rapid ScreenNegativeNormalNegative <[facility] Comment on above:Result Comment: Effective: 12/07/17 Methodology and/or Reference Range-Cutoff has changed.Performed By: #### UDSNC #### [facility] [address] [place] [address] FX Cannabinoids Rapid ScreenNegativeNormalNegative <[facility] HospitalComment on above:Performed By: #### UDSNC #### [facility] [address] [place] [address] KU Cocaine Rapid ScreenNegativeNormalNegative <[facility] Comment on above:Result Comment: Effective: 12/07/17 Methodology and/or Reference Range-Cutoff has changed.Performed By: #### UDSNC #### [facility] [address] [place] [address] EI Opiates Rapid ScreenNegativeNormalNegative <[facility] Comment on above:Result Comment: Effective: 12/07/17 Methodology and/or Reference Range-Cutoff has changed.Performed By: #### UDSNC #### [facility] [address] [place] [address] PP PCP Rapid ScreenNegativeNormalNegative <[facility] Comment on above:Performed By: #### UDSNC #### [facility] [address] [place] [address] FI Tricyclics Rapid Screen - RapidPositiveAbnormalNegative <[facility] HospitalComment on above:Result Comment: Effective: 12/07/17 Methodology and/or Reference Range-Cutoff has changed.Performed By: #### UDSNC #### [facility] [address] [place] [address] Btolblnimi with Reflex to Cultureon 62-77-5522Iafjrujwu Urine NegativeNegativeBON SECOURS MERCY HEALTHBlood, UrineNegativeNegativeBON SECOURS MERCY HEALTHClarity, UAClearClearBON SECOURS MERCY HEALTHColor, UAYellow Straw/YellowBON SECOURS MERCY HEALTHGlucose, Ur250 mg/dLAbnormalNegativeBON SECOURS MERCY HEALTHKetones Ql (U)NegativeNegative mg/dLBON SECOURS MERCY [facility]ALTH Leukocyte esterase Test strip Ql (U)TRACEAbnormalNegativeBON SECOURS MERCY HEALTHNitrite, UrineNegativeNegativeBON SECOURS MERCY HEALTHpH, UA5.05 - 9B[facility] HEALTHProtein, UANegativeNegative mg/dLB[facility] SECOURS MERCY [facility]ALTH Specific [place], UA1.0151.005 - 1.03B[facility] MERCY HEALTHUrine Reflex to CultureNot IndicatedBON SECOURS MERCY HEALTHUrobilinogen, Urine0.2NINFBON SECOURS MERCY HEALTHUrinalysis, reflex to cultureon [id number] Reflexed to CultureNot IndicatedNormalMerBenson HospitalComment on above:Performed By: #### UAR #### [facility] [address] [place] [address] Defoqofwo Ql (U)NegativeNormalNegPomerado HospitalComment on above:Performed By: #### UAR #### [facility] [address] [place] [address] Zbluntg (U)ClearNormalClearHighland District HospitalComment on above: Performed By: #### UAR #### [facility] [address] [place] [address] Nkjkg (U)YellowNormalStraw/YellHighland District HospitalComment on above: Performed By: #### UAR #### [facility] [address] [place] [address] Chfcbjz Ql (U)250 mg/dLAbnormalNegPomerado HospitalComment on above:Performed By: #### UAR #### [facility] [address] [place] [address] Hakvaqafze Ql (U)NegativeNormalNegativeHighland District HospitalComment on above:Performed By: #### UAR #### [facility] [address] [place] [address] Cthrzas Ql (U)NegativeNormalNegPomerado HospitalComcovenant medical center on above:Performed By: #### UAR #### [facility] [address] [place] [address] Zaowmidiz esterase Test strip Ql (U)TRACEAbnormalNegPomerado HospitalComcovenant medical center on above:Performed By: #### UAR #### [facility] [address] [place] [address] Yagebfq Ql (U)NegativeNormalNegPomerado HospitalComment on above:Performed By: #### UAR #### [facility] [address] [place] [address] fM (U)5.0 [pH]Normal5.0-9.0[facility] HospitalComcovenant medical center on above: Performed By: #### UAR #### [facility] [address] [place] [address] Rntuxuf Ql (U)NegativeNormalNegativeHighland District HospitalComment on above:Performed By: #### UAR #### [facility] [address] [place] [address] Jfaxgudn gravity (U) [Rel density]1.894Uvplqu9.005-1.03[facility] District HospitalComment on above:Performed By: #### UAR #### [facility] [address] [place] [address] Nhrtmfndityk Qn (U)0.2 {Sheyla'U}/dLNormal< 2.0[facility] Comment on above:Performed By: #### UAR #### [facility] [address] [place] [address] [place] Drug Screen, Comprehensiveon 94-34-6053Mxgxnzicooo Screen, UrineNegativeNegative <500 ng/mLTHE DIMOCK CENTERMyOtherDrive THE CHRIST HOSPITALComment on above: Effective: 12/07/17 Methodology and/or Reference Range-Cutoff has changed. Barbiturate Screen, UrNegativeNegative <200 ng/mLCLEARSKY REHABILITATION HOSP[facility]ALE [employer] THE [facility]ST HOSPITALComment on above:Effective: 12/07/17 Methodology and/or Reference Range-Cutoff has changed. Benzodiazepine Screen, UrineNegativeNegative <150 ng/mLCLEARSKY REHABILITATION HOSPITAL OF AVONDALE Search123 Comment on above:Effective: 12/07/17 Methodology and/or Reference Range-Cutoff has changed. Cannabinoid Scrn, UrNegativeNegative <50 ng/mLTHE DIMOCK CENTERVisicon Technologies [facility] CENTERPeela THE [facility]RIST HOSPITALCocaine Metabolite Screen, UrineNegativeNegative <150 ng/mLCLEARSKY REHABILITATION HOSP[facility] Search123 Comment on above:Effective: 12/07/17 Methodology and/or Reference Range-Cutoff has changed. Drug Screen Comment:see belowTHE DIMOCK CENTERMyOtherDrive THE CH[facility]ST HOSPITALComcovenant medical center on above:This method is a screening test to detect only these drug classes as part of a medical workup. Confirmatory testing by another method should be ordered if clinically indicated. Interpretation and review of laboratory resultsAbnormalTHE DIMOCK CENTERMyOtherDrive [facility] Opiate Scrn, UrNegativeNegative <100 ng/mLTHE DIMOCK CENTERTRIHEALTH GOOD SAMARITAN HOSPITALComment on above:Effective: 12/07/17 Methodology and/or Reference Range-Cutoff has changed. PCP Screen, UrineNegativeNegative <25 ng/mLBON WOOD COUNTY HOSPITALTricyclic PositiveAbnormalNegative <300 ng/mLBON WOOD COUNTY HOSPITALComment on above: Effective: 12/07/17 Methodology and/or Reference Range-Cutoff has changed. B[facility] COUNTY HOSPITALUrine Microscopicon 71-57-2418Frfsboujuu cells LM Ql (Urine sed)3-5NormalHighland District HospitalComment on above:Performed By: #### UMIC #### [facility] [address] [facility] [address] Lhnjb BacteriaFEWAbnormalNegativeHighland District HospitalComment on above:Performed By: #### UMIC #### [facility] [address] [place] [address] Fowak EXE6-2Bwltoh1-8Ludem A[facility] Health Center At SurpriseComment on above:Performed By: #### UMIC #### [facility] [address] [place] [address] Wrkkh TRR1-6Aekmzq4-9Ilmit Allen HospitalComment on above:Performed By: #### UMIC #### [facility] [address] [place] [address] HNQ B SURFACE ANTIGEN SCREENon 54-13-7833UMzNg ScreenNegativeNormal NegativeThe [facility]ers HospitalComment on above:Performed By: #### HBSANS ####[facility] Cotgjsqcnp224[address] [place], [place] [address]Vy. Yilan ChangHEPATITIS C ANTIBODYon 58-47-6154Nox C Virus Ab0.1 s/co ratioNormal 0.0-0.9The [facility] HospitalComcovenant medical center on above:Result Comment: Negative: < 0.8 Indeterminate: [...] Hepatitis C Virus (HCV) RNA, Diagnosis, EBONIE (071818) and Hepatitis C Virus (HCV) Antibody with reflex to Quantitative Real-time PCR ( 601475).Performed By: #### HCV ####[facility] Ndbhzesbjz[address] [place], [place] [address]Dr.Devin SureshHIV 1 AND 2 WITH REFLEXon 53-29-9390MDH Screen 4th Generation wRfxNon-ReactiveNormalNon ReactiveThe [facility] Comment on above:Result Comment: HIV NegativeHIV-1/HIV-2 antibodies and HIV-1 p24 antigen were NOT detected.There isno laboratory evidence of HIV infection. Performed By: #### HIV12 ####[facility] Dmszserqrk[address] [place], [place] [address]Dr. Devin ChangRPR QUANTon 90-28-9237Meqgq Plasma Reagin, QuantNon-ReactiveNormalNonRea<1:1The [facility]ers HospitalComment on above: Result Comment: Please Note: This test does not meet current guidelines forscreening and diagnosis of syphilis. This test is intended forfollowing treatment response in patients being treated forsyphilis infection. To screen for syphilis infection, a reflexcascade that includes both RPR and a treponema- specific assayshould be utilized, such as Treponema pallidum (Syphilis)Screening Chambers (244118) or Rapid Plasma Reagin (RPR) TestWith Reflex to Quantitative RPR and Confirmatory Treponemapallidum Antibodies ([id number]).Performed By: #### RPRQ ####[facility] Ikjecfalsa[address] [place], [place] [address]Dr. Devin SureshCBC AUTO DIFFon [id number] #0.1 103/ulNormal0.0-0.1The [facility]ers HospitalComment on above:Performed By: #### CBC ####[facility] Itkiyauqzp[address] [place], [place] [address]Dr.Devin SureshBasophils/100 WBC (Bld)0.9 %Normal0.2-2.0The [facility]ers HospitalComment on above:Performed By: #### CBC ####[facility] Rgjzmunjli[address] [place], [place] [address]Dr.Tishemily ChangEO #0.2 103/ulNormal0.0-0.7The [facility]ers HospitalComment on above:Performed By: #### CBC ####[facility] Yzgfhsckwf524[address] [place], [place] [address]Dr.Tishemily ChangEosinophils/100 WBC (Bld)2.8 %Normal 0.9-7.0The [facility] HospitalComment on above:Performed By: #### CBC ####[facility] Rfqbfgxhlx9[address] [place], [place] [address]Dr.Tishemily Suresh Erythrocyte distribution width (RBC) [Ratio]12.0 %Rbhdcs75.0-15.0The [facility] HospitalComment on above:Performed By: #### CBC ####[facility] Ghryvbwnzd226[address] [place], [place] [address]Dr.Devin ChangHematocrit (Bld) [Volume fraction]34.6 %Critically low36.0-48.0The [facility]ers HospitalComment on above:Performed By: #### CBC ####[facility] Dzavesowgs[address] [place], [place] [address]Dr.Tishemily ChangHemoglobin (Bld) [Mass/Vol]11.7 g/dL Critically low12.0-16.0The [facility]ers HospitalComment on above:Performed By: #### CBC ####[facility] Eawwpwquyj94[address] [place], [place] [address]Dr. Devin ChangIG #0.04 10e3/ulCritically high0.00-0.03The [facility]ers HospitalComment on above:Performed By: #### CBC ####[facility] Rrodtbjzkf330[address] [place], [place] [address]Dr.Devin ChangIG %0.6 %Critically high0.0-0.5The [facility]ers HospitalComment on above:Performed By: #### CBC ####[facility] Ewnoagrugn34[address] [place], [place] [address]Dr.Devin ChangLYMPH #2.0 103/ulNormal1.2-3.8The [facility]ers HospitalComment on above:Performed By: #### CBC ####[facility] [address]cmv[address] [place] [address]Dr. Devin SureshLymphocytes/100 WBC (Bld)31.2 %Wehffz75.5-60.0[facility] Comment on above:Performed By: #### CBC ####[facility] Gpbigjomdk[address] [place] [address]Dr.Devin SureshMANUAL DIFF REQNONormalThe [facility]ers HospitalComment on above:Performed By: #### CBC ####[facility] [address]em[address]zvkhh[address] [place] [address]Dr.Tishemily SureshH (RBC) [Entitic mass]30.8 zuIrbwwf48.7-34.0The [facility]ers HospitalComment on above: Performed By: #### CBC ####[facility] Yoibilmlhp84[address] [place], [place] [address]Dr.Devin SureshMCHC (RBC) [Mass/Vol]33.8 g/dLNormal 29.9-35.2The [facility]ers HospitalComment on above:Performed By: #### CBC ####[facility] Maijhsmdud[address] [place], [place] [address]Dr. Tisheimly SureshMCV (RBC) [Entitic vol]91.1 hXRjswvm66.0-99.0[facility] Comment on above:Performed By: #### CBC ####[facility] Mlseappxfj[address] [place], [place] [address]Dr.Devin SureshMONO #0.4 103/ulNormal0.3-0.8 The [facility]ers HospitalComment on above:Performed By: #### CBC ####[facility] Xfqxmljukj[address] [place], [place] [address]Dr.Devin Suresh Monocytes/100 WBC (Bld)6.6 %Normal1.7-12.0The [facility]ers HospitalComment on above: Performed By: #### CBC ####[facility] Hharnhsqee[address] [place], [place] [address]Dr.Devin SureshNEUT #3.7 103/ulNormal1.4-6.5The [facility] Kay HospitalComment on above:Performed By: #### CBC ####[facility] E[address]zxffch[address] [place] [address]Dr.Tishemily KerwinNeutrophils/100 WBC (Bld)57.9 %Lxeqmk08.0-75.0The [facility]ers HospitalComment on above:Performed By: #### CBC ####[facility] Flavdtecec[address] [place], [place] [address]Dr.Devin SureshPlatelet mean volume (Bld) [Entitic vol]9.0 fLCritically low 9.5-13.5The [facility]onia HospitalComment on above:Performed By: #### CBC ####[facility] Dinetarbiz[address] [place], [place] [address]Dr. Devin SureshPLT272 103/njZzopty509-312Sua [facility] HospitalComment on above: Performed By: #### CBC ####[facility] Uckqfzvmqo[address] [place], [place] [address]Dr.Devin SureshRBC3.80 106/ulCritically low4.20-5.40The [facility] HospitalComment on above:Performed By: #### CBC ####[facility] Lypzynpums[address] [place], [place] [address]Dr.Devin SureshWBC6.4 103/ul Normal4.0-11.0The [facility] HospitalComment on above:Performed By: #### CBC ####[facility] Yymguqjrjj[address] [place], [place] [address]Dr. Devin Brantley 1/2 RAPID (EXPOSURE ONLY)on 35-12-6204YHF ABNMercy Health St. Elizabeth Youngstown HospitalComment on above:Performed By: #### RPDHIV ####[facility] Yemtwgrnql[address] [place], [place] [address]Dr. Devin Brantley AGNVeteran's Administration Regional Medical Center HospitalComment on above:Performed By: #### RPDHIV ####[facility] Qdmlwxsbai[address] [place], [place] [address]Dr. Devin SureshINTERNAL CONTROLSWithin Normal LimitsNormalWithin Normal LimitsThe [facility] HospitalComment on above:Performed By: #### RPDHIV ####[facility] [address] [place] [address]Dr. Yilan KerwinRAPID HIV INFOSEE [facility] Rittman Medical CenterComment on above:Result Comment: This test is used for the initial screening of the exposure source. Confirmation ofall results will be obtained through reference lab testing.Performed By: #### RPDHIV ####[facility] [address] [place] [address]Dr. Yilan ChangPROF 14(COMP METB)on 56-89-7910Eujpokh [Mass/Vol]2.7 g/dL Critically low3.4-5.0The [facility] HospitalComment on above:Performed By: #### CMP ####[facility] Btkjxatyvn[address] [place], [place] [address]Dr. Yilan ChangAlbumin/Globulin [Mass ratio]0.9 {ratio}NormalMemorial Health System [facility] Comment on above:Performed By: #### CMP ####[facility] Btyrnrrwem[address] [place], [place] [address]Dr.Yilan ChangALP [Catalytic activity/Vol]98 U/YSuazqq17-910Ejn [facility] HospitalComment on above:Performed By: #### CMP ####[facility] Otnquofyvt[address] [place], [place] [address]Dr. Yilan ChangALT [Catalytic activity/Vol]17 U/QIboguk05-69Box [facility] Comment on above:Performed By: #### CMP ####[facility] Cmladlwbbr[address] [place], [place] [address]Dr.Yilan ChangAnion gap [Moles/Vol]12.0 mmol/LNormalThe [facility] HospitalComment on above:Performed By: #### CMP ####[facility] Lampnuahkq[address] [place], [place] [address]Dr. Yilan ChangAST [Catalytic activity/Vol]6 U/LCritically voe11-82Bea [facility] HospitalComment on above:Performed By: #### CMP ####[facility] Yyacjsebqu[address] [place], [place] [address]Dr.Yilan ChangBilirubin [Mass/Vol]0.3 mg/dLNormal0.2-1.0The [facility] HospitalComment on above:Performed By: #### CMP ####[facility] Qszwtcyvmz687[address] [place], [place] [address]Dr.Yilan ChangCalcium [Mass/Vol]8.1 mg/dLCritically low8.5-10.1The [facility] HospitalComment on above:Performed By: #### CMP ####[facility] Qqlrtkusdt[address] [place], [place] [address]Dr.Yilan ChangChloride [Moles/Vol]108 mmol/LCritically eptl99-321Ouw [facility] HospitalComment on above: Performed By: #### CMP ####[facility] Xeskibonxl[address] [place], [place] [address]Dr.Yilan ChangCO2 [Moles/Vol]25.4 mmol/LNormal 21.0-32.0The [facility] HospitalComment on above:Performed By: #### CMP ####[facility] Xadbidphsu[address] [place], [place] [address]Dr. Yilan ChangCreatinine [Mass/Vol]0.80 mg/dLNormal0.55-1.02[facility] Comment on above:Performed By: #### CMP ####[facility] Nwbueakwkt[address] [place], [place] [address]Dr.Yilan ChangEGFR-AF LEBANESE>60Normal>=60 The [facility] HospitalComment on above:Performed By: #### CMP ####[facility] Iuwcnrhibw67[address] [place], [place] [address]Dr.Yilan ChangEGFR- NON AF LEBANESE>60Normal>=60[facility] HospitalComment on above:Performed By: #### CMP ####[facility] Xlftogofeh[address] [place], [place] [address]Dr.Yilan ChangGlobulin (S) [Mass/Vol]3.0 g/dLNormalThe [facility] Comment on above:Performed By: #### CMP ####[facility] Vibfnnyfne[address] [place], [place] [address]Dr.Yilan ChangGlucose [Mass/Vol]153 mg/dL Critically kewa77-827Szq [facility] HospitalComment on above:Performed By: #### CMP ####[facility] Qwsncrffoz[address] [place], [place] [address]Dr. Devin ChangPotassium [Moles/Vol]3.4 mmol/LCritically low3.5-5.1The [facility] HospitalComment on above:Performed By: #### CMP ####[facility] Yiagysrkud[address] [place], [place] [address]Dr.Devin ChangProtein [Mass/Vol]5.7 g/dLCritically low6.4-8.2The [facility] HospitalComment on above: Performed By: #### CMP ####[facility] Spmxifktyn[address] [place], [place] [address]Dr.Devin ChangSodium [Moles/Vol]142 mmol/LNormal 136-145The [facility] HospitalComment on above:Performed By: #### CMP ####[facility] Cylglqmbwt[address] [place], [place] [address]Dr.Devin ChangUrea nitrogen [Mass/Vol]16.0 mg/dLNormal7.0-18.0The [facility] HospitalComment on above:Performed By: #### CMP ####[facility] Jficyrjrcq9[address] [place], [place] [address]Dr.Tishlan ChangUrea nitrogen/Creatinine [Mass ratio] 20.0 mg/mgAdams County HospitalComment on above:Performed By: #### CMP ####[facility] Afhfvgwzmp[address] [place], [place] [address]Dr. Devin ChangXR SACRUM_COCCYXon 38-84-7598KB SACRUM_COCCYXNormMercy Health Urbana HospitalCHEMISTRYOrdered By: Desi Lord on 72-48-0478Epaceno [Mass/Vol]123 mg/tAJgad55 - 99 mg/dLLINDSAY [facility] POC SubsectionComment on above:Result Comment: Notified RN/MDPOC Device [id number] Interpretation CodeLINDSAY M[facility]ICIP[facility] POC SubsectionPOC User [id number] Interpretation CodeFT[facility] POC SubsectionPOC UsernameAJOHNIN, MARCYInvalid Interpretation CodeFTMC POC SubsectionGlucose [Mass/Vol]94 mg/uDGylkgd36 - 99 mg/dLFTMC POC SubsectionComment on above:Result Comment: Notified RN/MDPOC Device [id number] Interpretation CodeFTMC POC SubsectionPOC User [id number] Interpretation CodeFTMC POC Subsection POC UsernameAUSTIN MARCYInvalid Interpretation CodeFTMC POC SubsectionCHEMISTRY Ordered By: Lab ROPUser on 17-34-4604Afofhpz [Mass/Vol]130 mg/cTLuja37 - 99 mg/dLFTMC POC SubsectionComment on above:Result Comment: Cleaned MeterPOC Device [id number] Interpretation CodeFT[facility] POC SubsectionPOC User ID [id number] Interpretation CodeFT[facility] POC SubsectionPOC UsernameROMP DANEKAInvalid Interpretation CodeFTMC POC SubsectionCHEMISTRYOrdered By: SYSTEM SYSTEM on 18-54-9473MIO.beta subunit Qn9 m[IU]/mLHigh1 - 3 mIU/mLFTMC Remisol CEFEPIME:SUSC:PT:ISOLATE:ORDQN:MICon 23-79-2692Osweduti DOMENIC [Susc]10,000 cfu/ml Proteus mirabilis 50,000 cfu/ml Staphylococcus speciesKeenan Private HospitalCHEMISTRY Ordered By: SYSTEM SYSTEM on 88-66-9318Itjgrdb [Mass/Vol]3.5 g/dLNormal3.3 - 5.0 gm/dLFTMC RemisolAlbumin/Globulin [Mass ratio]1.0 {ratio}Low1.1 - 2.2[facility] RemisolALP [Catalytic activity/Vol]95 [iU]/hFyrwkx74 - 98 Int._Unit/LFTMC RemisolALT No additional P-5'-P [Catalytic activity/Vol]12 [iU]/dNormal6 - 46 Int._Unit/LFTMC RemisolAnion gap [Moles/Vol]13 mmol/LNormal6 - 16 mEq/LFTMC RemisolAST [Catalytic activity/Vol]14 [iU]/dNormal5 - 43 Int._Unit/LFTMC Remisol Bilirubin [Mass/Vol]0.7 mg/dLNormal0.0 - 1.1 mg/dLFT RemisolBilirubin.direct [Mass/Vol]0.1 mg/dLNormal0.1 - 0.4 mg/dLFTMC RemisolBilirubin.indirect [Mass or moles/Vol]0.6 mg/dLNormal0.1 - 0.9 mg/dLFTMC RemisolCalcium [Mass/Vol]9.4 mg/dL Normal8.9 - 11.1 mg/dLFTMC RemisolChloride [Moles/Vol]101 mmol/TMfdhgq469 - 111 mmol/LFTMC RemisolCO2 [Moles/Vol]25 mmol/YYumfdw44 - 31 mmol/LFTMC Remisol Creatinine [Mass/Vol]1.0 mg/dLNormal0.5 - 1.3 mg/dLFT RemisolGFR/1.73 sq M.predicted among blacks MDRD (S/P/Bld) [Vol rate/Area]mL/min/1.73 l2Djolnq >=59mL/min/1.73 m2[facility] Chem SGFR/1.73 sq M.predicted among non-blacks MDRD (S/P/Bld) [Vol rate/Area]60 mL/min/1.73 l7Ecdnfx>=59mL/min/1.73 m2L[facility] Chem S Globulin (S) [Mass/Vol]3.5 g/dLNormal1.4 - 4.0 gm/dLFTMC RemisolGlucose [Mass/Vol]260 mg/zHJfme17 - 199 mg/dLFTMC RemisolHCG.beta subunit Qn10 m[IU]/mL High1 - 3 mIU/mLFT RemisolPotassium [Moles/Vol]4.0 mmol/LNormal3.5 - 5.3 mmol/LFTMC RemisolProtein [Mass/Vol]7.0 g/dLNormal6.0 - 7.8 gm/dLFTMC Remisol Sodium [Moles/Vol]135 mmol/PChxffj206 - 145 mmol/LFTMC RemisolUrea nitrogen [Mass/Vol]23 mg/dLHigh5 - 21 mg/dLFTMC RemisolUrea nitrogen/Creatinine [Mass ratio]23 mg/ikBggr60 - 20FT[facility] RemisolCefepime DOMENIC [Susc]on 70-02-6131CptwhwjMagruder Memorial HospitalHEMATOLOGYOrdered By: ReturnHauler SYSTEM on 58-72-8831Kqobnffdq/100 WBC (Bld)1.1 %Normal0.0 - 2.0 %[facility] HemeAutoSSBasophils/Leukocytes Auto (Bld) [Pure # fraction]0.1 E9/LNormal0.0 - 0.2 E9/LFTMC HemeAutoSSEosinophils/100 WBC (Bld)2.7 %Normal0.0 - 8.0 %[facility] HemeAutoSSEosinophils/Leukocytes Auto (Bld) [Pure # fraction]0.2 E9/LNormal0.0 - 0.5 E9/LFTMC HemeAutoSSLymphocytes/100 WBC (Bld)28.6 %Yarjgy09.0 - 50.0 %[facility] HemeAutoSSLymphocytes/Leukocytes Auto (Bld) [Pure # fraction]2.2 E9/LNormal1.0 - 4.0 E9/LFTMC HemeAutoSSMonocytes/100 WBC (Bld)6.2 %Normal4.0 - 14.0 %[facility] HemeAutoSSMonocytes/Leukocytes Auto (Bld) [Pure # fraction]0.5 E9/LNormal0.2 - 1.0 E9/LFTMC HemeAutoSSNeutrophils/100 WBC (Bld)61.4 %Upgtco54.0 - 75.0 %[facility] HemeAutoSSNeutrophils/Leukocytes Auto (Bld) [Pure # fraction]4.6 E9/LNormal2.0 - 7.5 E9/LFTMC HemeAutoSSHEMATOLOGYOrdered By: Brisa Cuellar on 11-04-2021 Erythrocyte distribution width (RBC) [Ratio]12.4 %Hwywgb45.9 - 14.2 %[facility] HemeAutoSSHematocrit (Bld) [Volume fraction]37.7 %Hqviwt14.0 - 46.0 %[facility] HemeAutoSSHemoglobin (Bld) [Mass/Vol]13.2 g/gCPhexqy61.0 - 16.0 gm/dLFTMC HemeAutoSSMCH (RBC) [Entitic mass]31.3 wpGxfjei25.0 - 34.0 pgFC HemeAutoSSMCHC (RBC) [Mass/Vol]35.1 g/gAIsdufe11.4 - 36.0 gm/dLFT HemeAutoSSMCV (RBC) [Entitic vol]89.1 oKNvbojp68.0 - 100.0 fLLINDSAY M[facility]IP[facility] HemeAutoSSPlatelet mean volume (Bld) [Entitic vol]6.9 fLNormal6.4 - 10.8 fLLINDSAY MUNICIP[facility] HemeAutoSSPlatelets (Bld) [#/Vol]373.0 E9/OSqiykd719.0 - 500.0 E9/LFALL[facility]HE[facility] HemeAutoSSRBC (Bld) [#/Vol]4.2 E12/LLow4.3 - 5.9 E12/LFALLIANCEHE[facility] HemeAutoSSWBC corrected for nucl RBC Auto (Bld) [#/Vol]7.5 E9/LNormal4.0 - 11.0 E9/LFALLI[facility]HE[facility] HemeAutoSSURINALYSISOrdered By: Sharla Villagomez on 77-34-0712Rihtimoj LM Ql (Urine sed)2+ /HPFInvalid Interpretation CodeTrace/HPFLINDSAY M[facility]IP[facility] UA Auto SSBilirubin Ql (U)Negative (11/04/21 12:55 PM)NormalNegativeLINDSA[facility] UA Auto SSClarity (U)Slightly Cloudy *ABN* (11/04/21 12:55 PM)Invalid Interpretation CodeClearFALLIANCEHEALTH [facility] UA Auto SSColor (U)Yellow (11/04/21 12:55 PM)NormalYellowLINDSAY M[facility]ICIPAL [facility] UA Auto SSCrystals LM Ql (Urine sed)Present (11/04/21 12:55 PM)NormalLINDSAY [facility]IP[facility] UA Auto SSEpithelial cells.squamous LM.HPF (Urine sed) [#/Area]5-8 /HPFNormal0-2/HPFFT UA Auto SSGlucose Test strip (U) [Mass/Vol]3+ *ABN* (11/04/21 12:55 PM)Invalid Interpretation CodeNegativeLINDSAY [facility]IP[facility] UA Auto SSHemoglobin Ql (U)Trace *ABN* (11/04/21 12:55 PM)Invalid Interpretation CodeNegativeLINDSAY [facility]IP[facility] UA Auto SSKetones (U) [Mass/Vol]Negative (11/04/21 12:55 PM)NormalNegativeLINDSA[facility] UA Auto SSLithium.plasma/[place].RBC (Bld) [Mass ratio]0-3 /HPFNormal0-3/HPFLINDSAY M[facility]ICIPAL [facility] UA Auto SSMucus Ql (Urine sed)Trace (11/04/21 12:55 PM)NormalLINDSAY [facility]ICIP[facility] UA Auto SSNitrite Ql (U)Positive *ABN* (11/04/21 12:55 PM)Invalid Interpretation CodeNegativeLINDSAY [facility]IP[facility] UA Auto SSpH (U)6.0 *NA* (11/04/21 12:55 PM)Invalid Interpretation Code5.0 - 9.0L[facility] UA Auto SSProtein (U) [Mass/Vol]Negative (11/04/21 12:55 PM)NormalNegativeLINDSA[facility] UA Auto SSSpecific gravity (U) [Rel density]>=1.030 *NA* (11/04/21 12:55 PM)Invalid Interpretation Code1.005 - 1.030L[facility] UA Auto SSUA Spec DescClean Catch (11/04/21 12:55 PM)NormalLINDSAY M[facility]ICIPAL [facility] UA Auto SSUrobilinogen Qn (U)0.1071253 {Sheyla'U}/dLNormal0.0 - 1.0 EU/dLLINDSAY M[facility]ICIPAL [facility] UA Auto SSWBC Auto Ql (U)Negative (11/04/21 12:55 PM)NormalNegativeLINDSAY [facility] UA Auto SSWBC casts LM.LPF (Urine sed) [#/Area]0-3 (11/04/21 12:55 PM)NormalLINDSAY M[facility]ICIPAL [facility] UA Auto SSWBC LM.HPF (Urine sed) [#/Area]0-5 /HPF Normal0-5/HPFLINDSAY MUNICIPAL [facility]OSPITAL [facility] UA Auto SSCHEMISTRYOrdered By: SYSTEM SYSTEM on 10-09-2021 Anion gap [Moles/Vol]14 mmol/LNormal6 - 16 mEq/LFTMC RemisolCalcium [Mass/Vol] 8.5 mg/dLLow8.9 - 11.1 mg/dLLINDSAY M[facility]ICIP[facility] RemisolChloride [Moles/Vol]103 mmol/SPsosje446 - 111 mmol/LFTMC RemisolCO2 [Moles/Vol]22 mmol/FPpksjq49 - 31 mmol/LFTMC Remisol Creatinine [Mass/Vol]1.0 mg/dLNormal0.5 - 1.3 mg/dLFT RemisolGFR/1.73 sq M.predicted among blacks MDRD (S/P/Bld) [Vol rate/Area]mL/min/1.73 x1Ehsiqg >=59mL/min/1.73 m2FT Chem SGFR/1.73 sq M.predicted among non-blacks MDRD (S/P/Bld) [Vol rate/Area]60 mL/min/1.73 w5Bscbmc>=59mL/min/1.73 m2FT Chem S Glucose [Mass/Vol]158 mg/cOSjokjq46 - 199 mg/dLFT RemisolPotassium [Moles/Vol] 3.7 mmol/LNormal3.5 - 5.3 mmol/LFTMC RemisolSodium [Moles/Vol]135 mmol/LNormal 135 - 145 mmol/LFTMC RemisolUrea nitrogen [Mass/Vol]13 mg/dLNormal5 - 21 mg/dL [facility] RemisolUrea nitrogen/Creatinine [Mass ratio]13 mg/ifBqixhe04 - 20FT RemisolHEMATOLOGYOrdered By: SYSTEM SYSTEM on 74-61-3655Keyxfwxhu/100 WBC (Bld) 0.6 %Normal0.0 - 2.0 %[facility] HemeAutoSSBasophils/Leukocytes Auto (Bld) [Pure # fraction]0.0 E9/LNormal0.0 - 0.2 E9/LFTMC HemeAutoSSEosinophils/100 WBC (Bld)0.4 %Normal0.0 - 8.0 %[facility] HemeAutoSSEosinophils/Leukocytes Auto (Bld) [Pure # fraction]0.0 E9/LNormal0.0 - 0.5 E9/LFTMC HemeAutoSSLymphocytes/100 WBC (Bld) 15.5 %Aoiogs13.0 - 50.0 %[facility] HemeAutoSSLymphocytes/Leukocytes Auto (Bld) [Pure # fraction]1.0 E9/LNormal1.0 - 4.0 E9/LFTMC HemeAutoSSMonocytes/100 WBC (Bld)8.5 %Normal4.0 - 14.0 %[facility] HemeAutoSSMonocytes/Leukocytes Auto (Bld) [Pure # fraction]0.5 E9/LNormal0.2 - 1.0 E9/LFTMC HemeAutoSSNeutrophils/100 WBC (Bld) 75.0 %Omfxde50.0 - 75.0 %[facility] HemeAutoSSNeutrophils/Leukocytes Auto (Bld) [Pure # fraction]4.8 E9/LNormal2.0 - 7.5 E9/LFTMC HemeAutoSSHEMATOLOGYOrdered By: Laura Obrien on 84-53-8248Hjxcmgmdgnc distribution width (RBC) [Ratio]12.9 %Zbzkia08.9 - 14.2 %[facility] HemeAutoSSHematocrit (Bld) [Volume fraction]36.9 %Bnpiaq86.0 - 46.0 %[facility] HemeAutoSSHemoglobin (Bld) [Mass/Vol]13.1 g/dELudryt87.0 - 16.0 gm/dL FT HemeAutoSSMCH (RBC) [Entitic mass]31.9 hpKytwps76.0 - 34.0 pgFTMC HemeAutoSSMCHC (RBC) [Mass/Vol]35.5 g/hNApcdms08.4 - 36.0 gm/dLFTMC HemeAutoSS MCV (RBC) [Entitic vol]89.6 jFTdfley86.0 - 100.0 fLFT HemeAutoSSPlatelet mean volume (Bld) [Entitic vol]7.0 fLNormal6.4 - 10.8 fLFTMC HemeAutoSSPlatelets (Bld) [#/Vol]284.0 E9/JUonqop709.0 - 500.0 E9/LFTMC HemeAutoSSRBC (Bld) [#/Vol] 4.1 E12/LLow4.3 - 5.9 E12/LFTMC HemeAutoSSWBC corrected for nucl RBC Auto (Bld) [#/Vol]6.4 E9/LNormal4.0 - 11.0 E9/LFTMC HemeAutoSSMICRO OTHER TESTSOrdered By: Shannen Sosa on 29-90-2025Rftasgxrws A AgNegative (10/09/21 4:48 PM)NormalNegativeLINDSA[facility] Man SeroInfluenzae B AgNegative (10/09/21 4:48 PM)NormalNegativeFT Man SeroRapid COV Int NEG CtlPass (10/09/21 4:48 PM)NormalFT Man SeroRapid COV Int POS CtlPass (10/09/21 4:48 PM)NormalLINDSAY M[facility] Man SeroSARS-CoV+SARS-CoV-2 (COVID-19) Ag IA.rapid Ql (Resp)Not Detected (10/09/21 4:48 PM)NormalNot DetectedFT Man SeroSEROLOGYOrdered By: Shannen Sosa on 07-80-5029Laam hCG QlPositive (10/09/21 4:48 PM)NormalLINDSAY M[facility]IP[facility] Man SeroCHEMISTRYOrdered By: SYSTEM SYSTEM on 13-17-8548Pbebqoe [Mass/Vol]3.8 g/dLNormal3.3 - 5.0 gm/dLLINDSAY [facility]IP[facility] Remisol Albumin/Globulin [Mass ratio]1.2 {ratio}Normal1.1 - 2.2FT[facility] RemisolALP [Catalytic activity/Vol]89 [iU]/sFlsgsq77 - 98 Int._Unit/LFTMC RemisolALT No additional P-5'-P [Catalytic activity/Vol]13 [iU]/dNormal6 - 46 Int._Unit/LFT[facility] RemisolAnion gap [Moles/Vol]13 mmol/LNormal6 - 16 mEq/LFT[facility] RemisolAST [Catalytic activity/Vol]15 [iU]/dNormal5 - 43 Int._Unit/LFTMC RemisolBilirubin [Mass/Vol]0.7 mg/dLNormal0.0 - 1.1 mg/dLFT RemisolCalcium [Mass/Vol]9.0 mg/dL Normal8.9 - 11.1 mg/dLLINDSAY M[facility] RemisolChloride [Moles/Vol]105 mmol/POtgzmh818 - 111 mmol/LFTMC RemisolCholesterol [Mass/Vol]188 mg/qXZyrhoz471 - 200 mg/dLFTMC RemisolCholesterol in HDL [Mass/Vol]48 mg/dLInvalid Interpretation CodeFT RemisolCholesterol in LDL [Mass/Vol]119 mg/dLNormal<=129mg/dLFTMC Remisol Cholesterol in VLDL [Mass/Vol]22 mg/dLNormal7 - 40 mg/dLFTMC RemisolCO2 [Moles/Vol]23 mmol/LGgchuv80 - 31 mmol/LFTMC RemisolCreatinine [Mass/Vol]1.0 mg/dLNormal0.5 - 1.3 mg/dLFTMC RemisolGFR/1.73 sq M.predicted among blacks MDRD (S/P/Bld) [Vol rate/Area]mL/min/1.73 t2Cbvwat>=59mL/min/1.73 m2FT Chem S GFR/1.73 sq M.predicted among non-blacks MDRD (S/P/Bld) [Vol rate/Area]60 mL/min/1.73 m6Iatjup>=59mL/min/1.73 m2FT Chem SGlobulin (S) [Mass/Vol]3.2 g/dL Normal1.4 - 4.0 gm/dLFT RemisolGlucose [Mass/Vol]71 mg/bJExdazh57 - 199 mg/dL FT RemisolPotassium [Moles/Vol]2.9 mmol/LLow3.5 - 5.3 mmol/LFTMC Remisol Protein [Mass/Vol]7.0 g/dLNormal6.0 - 7.8 gm/dLFTMC RemisolSodium [Moles/Vol]138 mmol/HTlhwde549 - 145 mmol/LFTMC RemisolTriglyceride [Mass/Vol]108 mg/dLNormal <=149mg/dLFTMC RemisolTSH Qn5.16 m[IU]/LNormal0.34 - 5.60 mcIU/mLFTMC Remisol Urea nitrogen [Mass/Vol]19 mg/dLNormal5 - 21 mg/dLFTMC RemisolUrea nitrogen/Creatinine [Mass ratio]19 mg/ejMlupcs95 - 20FT[facility] RemisolCHEMISTRY Ordered By: Sharla Villagomez on 50-56-2452XnT2v (Bld) [Mass fraction]9.1 %High <=5.9%[facility] ChemAutoSSCHEMISTRYOrdered By: Breanna Hammond on 32-03-5464Dgcrvmb DL <= 20 mg/L (U) [Mass/Vol]32.4 microgram/mLHigh0.0 - 19.0 mcg/mLFTMC Remisol HEMATOLOGYOrdered By: SYSTEM SYSTEM on 13-17-9430Rjtqxzicy/100 WBC (Bld)0.9 % Normal0.0 - 2.0 %[facility] HemeAutoSSBasophils/Leukocytes Auto (Bld) [Pure # fraction]0.1 E9/LNormal0.0 - 0.2 E9/LFTMC HemeAutoSSEosinophils/100 WBC (Bld)1.5 %Normal0.0 - 8.0 %[facility] HemeAutoSSEosinophils/Leukocytes Auto (Bld) [Pure # fraction]0.1 E9/LNormal0.0 - 0.5 E9/LFTMC HemeAutoSSLymphocytes/100 WBC (Bld) 28.5 %Ukcfaf69.0 - 50.0 %[facility] HemeAutoSSLymphocytes/Leukocytes Auto (Bld) [Pure # fraction]2.5 E9/LNormal1.0 - 4.0 E9/LFTMC HemeAutoSSMonocytes/100 WBC (Bld)5.8 %Normal4.0 - 14.0 %[facility] HemeAutoSSMonocytes/Leukocytes Auto (Bld) [Pure # fraction]0.5 E9/LNormal0.2 - 1.0 E9/LFTMC HemeAutoSSNeutrophils/100 WBC (Bld) 63.3 %Aunrrf12.0 - 75.0 %[facility] HemeAutoSSNeutrophils/Leukocytes Auto (Bld) [Pure # fraction]5.6 E9/LNormal2.0 - 7.5 E9/LFTMC HemeAutoSSHEMATOLOGYOrdered By: Brisa Cuellar on [id number] distribution width (RBC) [Ratio]13.1 % Qybmas28.9 - 14.2 %[facility] HemeAutoSSHematocrit (Bld) [Volume fraction]40.6 %Normal 34.0 - 46.0 %[facility] HemeAutoSSHemoglobin (Bld) [Mass/Vol]13.7 g/aAMnvcww26.0 - 16.0 gm/dLFTMC HemeAutoSSMCH (RBC) [Entitic mass]31.2 izFrykld60.0 - 34.0 pgF[facility] [place] HemeAutoSSMCHC (RBC) [Mass/Vol]33.8 g/zSZjvljg60.4 - 36.0 gm/dLFT HemeAutoSS MCV (RBC) [Entitic vol]92.4 bFXtwmkc74.0 - 100.0 fLLIND[facility] [place] HemeAutoSSPlatelet mean volume (Bld) [Entitic vol]7.9 fLNormal6.4 - 10.8 fLLINDSA[facility] [place] HemeAutoSSPlatelets (Bld) [#/Vol]298.0 E9/NJfkyus766.0 - 500.0 E9/LFC HemeAutoSSComment on above: Result Comment: Platelet count verified using smear estimate Slide reviewed by FIR.RBC (Bld) [#/Vol]4.4 E12/LNormal4.3 - 5.9 E12/LFC HemeAutoSSWBC corrected for nucl RBC Auto (Bld) [#/Vol]8.9 E9/LNormal4.0 - 11.0 E9/LFALL[facility] [place] HemeAutoSSCHEMISTRYOrdered By: SYSTEM SYSTEM on 30-14-1652Ccnts gap [Moles/Vol]17 mmol/LHigh6 - 16 mEq/L[facility] RemisolCalcium [Mass/Vol]9.0 mg/dL Normal8.9 - 11.1 mg/dLLINDSAY [facility] [place] RemisolChloride [Moles/Vol]104 mmol/AAstfla492 - 111 mmol/LFT[facility] RemisolCO2 [Moles/Vol]25 mmol/JWebrnq86 - 31 mmol/LFT[facility] Remisol Creatinine [Mass/Vol]1.0 mg/dLNormal0.5 - 1.3 mg/dLFT RemisolGFR/1.73 sq M.predicted among blacks MDRD (S/P/Bld) [Vol rate/Area]mL/min/1.73 q0Iwoqno >=59mL/min/1.73 m2[facility] [place] Chem SGFR/1.73 sq M.predicted among non-blacks MDRD (S/P/Bld) [Vol rate/Area]60 mL/min/1.73 u8Jywbrr>=59mL/min/1.73 m2[facility] [place] Chem S Glucose [Mass/Vol]228 mg/vGUkhd58 - 199 mg/dLFT RemisolPotassium [Moles/Vol] 3.5 mmol/LNormal3.5 - 5.3 mmol/L[facility] RemisolSodium [Moles/Vol]142 mmol/LNormal 135 - 145 mmol/LFC RemisolUrea nitrogen [Mass/Vol]21 mg/dLNormal5 - 21 mg/dL [facility] [place] RemisolUrea nitrogen/Creatinine [Mass ratio]21 mg/ubSjfg23 - 20FT Remisol HEMATOLOGYOrdered By: Brisa Cuellar on [id number] distribution width (RBC) [Ratio]13.2 %Ymwfcg51.9 - 14.2 %[facility] [place] HemeAutoSSHematocrit (Bld) [Volume fraction]38.8 %Nbqpzl59.0 - 46.0 %[facility] [place] HemeAutoSSHemoglobin (Bld) [Mass/Vol]13.6 g/hEKsxzoj94.0 - 16.0 gm/dLFT HemeAutoSSMCH (RBC) [Entitic mass]31.5 pgNormal 27.0 - 34.0 pgFTM HemeAutoSSMCHC (RBC) [Mass/Vol]35.0 g/rZPtricq63.4 - 36.0 gm/dLFTMC HemeAutoSSMCV (RBC) [Entitic vol]90.2 kCDrausw95.0 - 100.0 fLLIND[facility] [place] HemeAutoSSPlatelet mean volume (Bld) [Entitic vol]7.5 fLNormal6.4 - 10.8 fLLINDSA[facility] [place] HemeAutoSSPlatelets (Bld) [#/Vol]358.0 E9/EWpnovh112.0 - 500.0 E9/LFTMC HemeAutoSSRBC (Bld) [#/Vol]4.3 E12/LNormal4.3 - 5.9 E12/LFT[facility] HemeAutoSSWBC corrected for nucl RBC Auto (Bld) [#/Vol]7.5 E9/LNormal4.0 - 11.0 E9/LFTMC HemeAutoSSCOVID Quick Testingon [id number] OneCard Other Basic Metabolic Panelon 27-82-3844Nofwy gap [Moles/Vol]9 mmol/LLow10 - 20 mmol/LOhioHealthCalcium [Mass/Vol]7.8 mg/dLLow8.4 - 10.2 mg/dLOhioHealthChloride [Moles/Vol]119 mmol/LHigh98 - 108 mmol/L [facility]HealthCreatinine [Mass/Vol]0.72 mg/dL0.40 - 1.10OhioHealthGFR/1.73 sq M predicted among non-blacks MDRD (S/P/Bld) [Vol rate/Area]The eGFR should be used for monitoring renal function only and not for medication dosing.[facility] GFR/1.73 sq M.predicted CKD-EPI (S/P/Bld) [Vol rate/Area]103>=60 mL/min/1.73 m2 [facility]HealthGlucose [Mass/Vol]70 mg/dL65 - 99 mg/dLOhioHealthHCO3 [Moles/Vol]22 mmol/L21 - 32 mmol/LOhioHealthInterpretation and review of laboratory results AbnormalOhioHealthPotassium [Moles/Vol]3.5 mmol/L3.5 - 5.1 mmol/LOhioHealth Sodium [Moles/Vol]146 mmol/TVotl455 - 145 mmol/LOhioHealthUrea nitrogen [Mass/Vol]8 mg/dL8 - 25 mg/dLOhioHealthUrea nitrogen/Creatinine [Mass ratio]11.1 mg/mgOhioHealthCBCon 01-41-9469Bcwzhtqlbro distribution width (RBC) [Entitic vol]12.2 %11.6 - 14.8 %OhioHealthHematocrit (Bld) [Volume fraction]35.1 %Low36 - 46 %OhioHealthHemoglobin (Bld) [Mass/Vol]11.4 g/dLLow12 - 16 g/dLOhioHealth Interpretation and review of laboratory resultsAbnormalOhioHealthMCH (RBC) [Entitic mass]30.6 pg26 - 34 pgOhioHealthMCHC (RBC) [Mass/Vol]32.5 g/dL31 - 37 g/dLOhioHealthMCV (RBC) [Entitic vol]94.4 fL80 - 100 fLOhioHealthNucleated RBC (Bld) [#/Vol]0.00 10*3/uLOhioHealthNucleated RBC/100 WBC (Bld) [Ratio]0.0 % MississippiHealthPlatelet mean volume (Bld) [Entitic vol]9.4 fL9.4 - 12.4 fLOhioHealth Platelets (Bld) [#/Vol]191 10*3/uLOhioHealthRBC (Bld) [#/Vol]3.72 10*6/uLLow OhioHealthWBC (Bld) [#/Vol]5.46 10*3/uLOhioHealthLactic Acid, Plasmaon 44-14-5242Phvvdwboyspedq and review of laboratory resultsNormalOhioHealthLactate [Moles/Vol]1.9 mmol/L0.6 - 2 mmol/LOhioHealthMagnesiumon 79-50-7050Qertbpxkl [Mass/Vol]1.8 mg/dL1.6 - 2.4 mg/dLOhioHealthOtheron 85-55-5187Zkifkznwdcondm and review of laboratory resultsNormalOhioHealthPOC Glucoseon 13-63-9527Vptsikz [Mass/Vol]201 mg/tHPuvx49 - 99 mg/dLOhioHealthInterpretation and review of laboratory resultsAbnormalOhioHealthGlucose [Mass/Vol]143 mg/yZRzmk29 - 99 mg/dL OhioHealthInterpretation and review of laboratory resultsAbnormalOhioHealth Glucose [Mass/Vol]93 mg/dL65 - 99 mg/dLOhioHealthTSHon 05-48-3579Ohfmynsaupplgd and review of laboratory resultsNormalOhioHealthTSH Qn2.35 m[IU]/LOhioHealth Basic Metabolic Panelon 43-99-3646Qvlrr gap [Moles/Vol]11 mmol/L10 - 20 mmol/L OhioHealthCalcium [Mass/Vol]7.8 mg/dLLow8.4 - 10.2 mg/dLOhioHealthChloride [Moles/Vol]115 mmol/LHigh98 - 108 mmol/LOhioHealthCreatinine [Mass/Vol]0.90 mg/dL0.40 - 1.10OhioHealthGFR/1.73 sq M predicted among non-blacks MDRD (S/P/Bld) [Vol rate/Area]The eGFR should be used for monitoring renal function only and not for medication dosing.OhioHealthGFR/1.73 sq M.predicted CKD-EPI (S/P/Bld) [Vol rate/Area]79>=60 mL/min/1.73 b4SkjdSdpcbwByxyorm [Mass/Vol]107 mg/iKWlyn92 - 99 mg/dLOhioHealthHCO3 [Moles/Vol]22 mmol/L21 - 32 mmol/L OhioHealthInterpretation and review of laboratory resultsAbnormalOhioHealth Potassium [Moles/Vol]3.7 mmol/L3.5 - 5.1 mmol/LOhioHealthSodium [Moles/Vol]144 mmol/L135 - 145 mmol/LOhioHealthUrea nitrogen [Mass/Vol]14 mg/dL8 - 25 mg/dL OhioHealthUrea nitrogen/Creatinine [Mass ratio]15.6 mg/mgOhioHealthCBC WITH AUTO DIFFERENTIALon 79-80-0805Tqsnoarct (Bld) [#/Vol]0.08 10*3/uLOhioHealth Basophils/100 WBC (Bld)1.1 %OhioHealthEosinophils [...] resultsAbnormalOhioHealthLymphocytes (Bld) [#/Vol]2.82 10*3/uL OhioHealthLymphocytes/100 WBC (Bld)39.6 %[facility] HospitalMCH (RBC) [Entitic mass]31.1 pg26 - 34 pgOhioHealthMCHC (RBC) [Mass/Vol]32.8 g/dL31 - 37 g/dLOhioHealthMCV (RBC) [Entitic vol]95.0 fL80 - 100 fLOhioHealthMonocytes (Bld) [#/Vol]0.45 10*3/uLOhioHealthMonocytes/100 WBC (Bld)6.3 %OhioHealthNeutrophils (Bld) [#/Vol] 3.59 10*3/uLOhioHealthNeutrophils/100 WBC (Bld)50.5 %OhioHealthNucleated RBC (Bld) [#/Vol]0.00 10*3/uLOhioHealthNucleated RBC/100 WBC (Bld) [Ratio]0.0 % [facility] HospitalPlatelet mean volume (Bld) [Entitic vol]9.7 fL9.4 - 12.4 fLOhioHealth Platelets (Bld) [#/Vol]234 10*3/uLOhioHealthRBC (Bld) [#/Vol]3.79 10*6/uLLow OhioHealthWBC (Bld) [#/Vol]7.12 10*3/uLOhioHealthHemoglobin A1con 06-04-2020 Average glucose Estimated from glycated hemoglobin mass conc (Bld)246 mg/dLHigh 68 - 114 mg/sEViqwBcrhbiPiR5f (Bld) [Mass fraction]10.2 %High4 - 5.6 %[facility] Interpretation and review of laboratory resultsAbnormalOhioHealthNormal: 4.0% - 5.6% Increased risk for diabetes: 5.7% - 6.4% Diabetes: >= 6.5% Pediatrics: No established reference range Estimated average glucose: 68-114 mg/dLOhioHealth [facility]field Hospital Magnesiumon 31-52-1276Cozbqtcvaaczyw and review of laboratory resultsNormal [facility] HospitalMagnesium [Mass/Vol]1.6 mg/dL1.6 - 2.4 mg/dLOhioHealth Mansfield HospitalPOC Glucoseon 38-13-3149Lzpflvi [Mass/Vol]79 mg/dL65 - 99 mg/dLOhioHealthInterpretation and review of laboratory resultsNormalOhioHealthGlucose [Mass/Vol]108 mg/fOJzyt14 - 99 mg/dLOhioHealthInterpretation and review of laboratory resultsAbnormal OhioHealthGlucose [Mass/Vol]134 mg/gNMqrq41 - 99 mg/dLOhioHealthInterpretation and review of laboratory resultsAbnormalOhioHealthGlucose [Mass/Vol]118 mg/dL High65 - 99 mg/dLOhioHealthInterpretation and review of laboratory results AbnormalOhioHealthReflex Lactic Acid, Plasmaon 42-24-3092Gouwxaryyfhwud and review of laboratory resultsAbnormalOhioHealthLactate [Moles/Vol]2.1 mmol/LHigh 0.6 - 2 mmol/LOhioHealthCBC WITH AUTO DIFFERENTIALon 42-37-8259Pjuvttkjs (Bld) [#/Vol]0.06 10*3/uLOhioHealthBasophils/100 WBC (Bld)0.8 %OhioAk[facility]S HospitalEosinophils (Bld) [#/Vol]0.11 10*3/uLOhioHealthEosinophils/100 WBC (Bld)1.4 %[facility] Erythrocyte distribution width (RBC) [Entitic vol]12.3 %11.6 - 14.8 %[facility] Hematocrit (Bld) [Volume fraction]38.8 %36 - 46 %[facility]field HospitalHemoglobin (Bld) [Mass/Vol]13.1 g/dL12 - 16 g/dLOhioHealthImmature granulocytes (Bld) [#/Vol]0.02 10*3/uLOhioHealthImmature granulocytes/100 WBC (Bld)0.30 %OhioHealthComment on above:The IG parameter is the percentage of metamyelocytes, myelocytes and promyelocytes. An immature granulocyte count (IG) of 1% or more suggests the possibility of infection, an IG count of 3% is very likely related to an infection.Lymphocytes (Bld) [#/Vol]1.86 10*3/uLOhioHealthLymphocytes/100 WBC (Bld)24.1 %OhioAkron Children'S HospitalMCH (RBC) [Entitic mass]30.8 pg26 - 34 pgOhioHealthMCHC (RBC) [Mass/Vol]33.8 g/dL31 - 37 g/dLOhioHealthMCV (RBC) [Entitic vol]91.1 fL80 - 100 fLOhioHealthMonocytes (Bld) [#/Vol]0.37 10*3/uLOhioHealthMonocytes/100 WBC (Bld)4.8 %OhioHealthNeutrophils (Bld) [#/Vol]5.29 10*3/uLOhioHealth Neutrophils/100 WBC (Bld)68.6 %OhioHealthNucleated RBC (Bld) [#/Vol]0.00 10*3/uL OhioHealthNucleated RBC/100 WBC (Bld) [Ratio]0.0 %OhioHealthPlatelet mean volume (Bld) [Entitic vol]9.7 fL9.4 - 12.4 fLOhioHealthPlatelets (Bld) [#/Vol]253 10*3/uLOhioHealthRBC (Bld) [#/Vol]4.26 10*6/uLOhioHealthWBC (Bld) [#/Vol]7.71 10*3/uLOhioHealthCOVID-19, Molecularon 04-17-4825Yqqkcptbsumioo and review of laboratory fvqinluIuydxiYclpQqhfxgKTCE-ZzM-3Yxr DetectedNot DetectedOhioHealth Comment on above:This test was [...] at the following links: For Healthcare Providers: https://www.fda.gov/media/350654/download For Patients: https://www.fda.gov/media/420748/download CRITICAL CAREon 65-91-8413Uyywktalha Hankins MD 06/03/2020 4:35 PM Critical Care [...] above. Wo rkstation ID: [id number], Rad In [facility] - 06/03/2020 3:31 PM EST EXAMINATION: CT [...] seen. No focal fluid density collection is identified.MississippiHealthChem 7on 03-80-9406Grhjs gap [Moles/Vol]11 mmol/L10 - 20 mmol/LOhioHealthChloride [Moles/Vol]109 mmol/LHigh98 - 108 mmol/LOhioHealth Creatinine [Mass/Vol]1.28 mg/dLHigh0.40 - 1.10OhioHealthGFR/1.73 sq M predicted among non-blacks MDRD (S/P/Bld) [Vol rate/Area]The eGFR should be used for monitoring renal function only and not for medication dosing.OhioHealthGFR/1.73 sq M.predicted CKD-EPI (S/P/Bld) [Vol rate/Area]51Low>=60 mL/min/1.73 m2 OhioHealthGlucose [Mass/Vol]288 mg/gWLatj87 - 99 mg/dLOhioHealthHCO3 [Moles/Vol] 27 mmol/L21 - 32 mmol/LOhioHealthInterpretation and review of laboratory results AbnormalOhioHealthPotassium [Moles/Vol]3.9 mmol/L3.5 - 5.1 mmol/LOhioHealth Sodium [Moles/Vol]143 mmol/L135 - 145 mmol/LOhioHealthUrea nitrogen [Mass/Vol]16 mg/dL8 - 25 mg/dLOhioHealthUrea nitrogen/Creatinine [Mass ratio]12.5 mg/mg OhioHealthLactic Acid, Plasmaon 02-53-4303Vpiaqntunfuhnh and review of laboratory resultsAbnormalOhioHealthLactate [Moles/Vol]2.6 mmol/LHigh0.6 - 2 mmol/LOhioHealthOtheron 23-79-2487Svwfo TubeHold for add-ons.OhioHealthComment on above:Auto resulted.POC Glucoseon 53-83-3348Cdyqosw [Mass/Vol]288 mg/sURnrs26 - 99 mg/dLOhioHealthInterpretation and review of laboratory resultsAbnormal [facility] W/DIFFon 49-86-7617AEV BASOPHILS0.1 10*3/uLNormal0.0-0.2The [facility] Willard HospitalComment on above:Performed By: #### [id number] #### [facility] [address] [facility] [place] [address], USAABS IMM GRANS0.0 10*3/uLNormal0.0-0.2The [facility] HospitalComment on above:Performed By: #### [id number] #### [facility] [address] [facility] [place] [address], USAABS NEUTROPHILS7.5 10*3/uLNormal1.6-7.6The [facility] HospitalComment on above:Performed By: #### [id number] #### [facility] [address] [place] [address], USABasophils/100 WBC (Bld)0.7 %Normal0.0-1.0The [facility] HospitalComment on above:Performed By: #### [id number] #### [facility] [address] [place] [address], USAEosinophils (Bld) [#/Vol]0.2 10*3/uLNormal0.0-0.5The [facility] HospitalComment on above:Performed By: #### [id number] #### [facility] [address] [place] [address], USAEosinophils/100 WBC (Bld)1.5 %Normal0.0-6.0The [facility] HospitalComment on above:Performed By: #### [id number] #### [facility] [address] [facility] [address], USAErythrocyte distribution width (RBC) [Ratio]12.0 %Normal 11.5-15.0The [facility] HospitalComment on above:Performed By: #### [id number] #### [facility] [address] [address], USAHematocrit (Bld) [Volume fraction]40.4 %Dyzmxo79.0-45.0The [facility] HospitalComment on above:Performed By: #### [id number] #### [facility] [address] [address], USAHemoglobin (Bld) [Mass/Vol]13.5 g/dSKkzdrs78.0-15.0The [facility] HospitalComment on above:Performed By: #### [id number] #### [facility] [address] [facility] [place] [address], USAIMMATURE GRANS0.4 %Normal0.0-1.0The [facility] HospitalComment on above:Performed By: #### 11354 #### [facility] [address] [place] [id number], USALymphocytes (Bld) [#/Vol]2.3 10*3/uLNormal1.2-4.0The [facility] HospitalComment on above:Performed By: #### [id number] #### [facility] [address] [place] [address], [facility] CENTERLymphocytes/100 WBC (Bld)21.5 %Xazmfq73.0-45.0The [facility] HospitalComment on above:Performed By: #### 72289 #### [facility] [address] [place] [address], [facility] (RBC) [Entitic mass]29.9 dcLwofpz05.0-33.0The [facility] HospitalComment on above:Performed By: #### [id number] #### [facility] [address] [place] [address], [facility]ENTERMCHC (RBC) [Mass/Vol]33.4 g/qRDjifvj79.0-35.0The [facility] HospitalComment on above:Performed By: #### [id number] #### [facility] [address] [place] [address], [facility] CENTERMCV (RBC) [Entitic vol]89.6 jDFuylph13.0-98.0The [facility] HospitalComment on above:Performed By: #### [id number] #### [facility] [address] [place] [address], USAMonocytes (Bld) [#/Vol]0.6 10*3/uLNormal0.1-1.0The [facility] HospitalComment on above:Performed By: #### 89020 #### [facility] [address] [place] [address], USAMONOS5.6 %Normal5.0-12.0The [facility] HospitalComment on above:Performed By: #### 50819 #### [facility] [address] [place] [address], USANeutrophils/100 WBC (Bld)70.3 %Nedkxp99.0-72.0The [facility] HospitalComment on above:Performed By: #### 26053 #### [facility] [address] [place] [address], USANucleated RBC/100 WBC (Bld) [Ratio]0 %Normal0-0The [facility] HospitalComment on above:Performed By: #### [id number] #### [facility] [address] [place] [address], USAPLAT LRK763 10*3/wGMlbe789-202Wbn [facility] HospitalComment on above:Performed By: #### 11373 #### [facility] [address] [place] [address], USARBC (Bld) [#/Vol]4.51 10*6/uLNormal3.80-5.00The [facility] HospitalComment on above:Performed By: #### [id number] #### [facility] [address] [place] [address], USAWBC (Bld) [#/Vol]10.63 10*3/uLHigh4.00-10.60The [facility] HospitalComment on above:Performed By: #### [id number] #### [facility] [address] [place] [address], USACOMP METABOLIC PANELon 84-24-1492Ljixmyn [Mass/Vol]4.2 g/dL Normal3.5-5.7The [facility] HospitalComment on above:Performed By: #### 24010 #### [facility] [address] [place] [address], USAALKALINE TBNFJM26 IU/RZngohv74-056But [facility] HospitalComment on above:Performed By: #### 70694 #### [facility] [address] [place] [address], USAALT [Catalytic activity/Vol]6 U/LLow7-52The [facility] HospitalComment on above:Performed By: #### 56639 #### [facility] [address] [place] [address], USAAST [Catalytic activity/Vol]9 U/NYnz10-95Bfa [facility] HospitalComment on above:Performed By: #### 69450 #### [facility] [address] [place] [address], USABilirubin [Mass/Vol]0.3 mg/dLNormal0.3-1.0The [facility] HospitalComment on above:Performed By: #### [id number] #### [facility] [address] [place] [address], USACalcium [Mass/Vol]9.4 mg/dLNormal8.6-10.3The [facility] HospitalComment on above:Performed By: #### [id number] #### [facility] [address] [place] [address], USAChloride [Moles/Vol]104 mmol/REwjxnb40-064Xhr [facility] HospitalComment on above:Performed By: #### 99189 #### [facility] [address] [place] [address], USACO2 [Moles/Vol]25 mmol/SUvygic09-26Eln [facility] HospitalComment on above:Performed By: #### 10706 #### [facility] [address] [place] [address], USACreatinine [Mass/Vol]0.89 mg/dLNormal0.60-1.20The [facility] HospitalComment on above:Performed By: #### 76119 #### [facility] [address] [place] [address], USAGFR/1.73 sq M predicted among blacks MDRD (S/P/Bld) [Vol rate/Area]mL/min/{1.73_m2}Normal>60The [facility] Comment on above:Performed By: #### 48376 #### [facility] [address] [place] [address], USAGFR/1.73 sq M predicted among non-blacks MDRD (S/P/Bld) [Vol rate/Area]mL/min/{1.73_m2}Normal>60The [facility] Comment on above:Performed By: #### 77405 #### [facility] [address] [place] [address], USAGlucose [Mass/Vol]155 mg/rPVzzw34-849Fpb [facility] HospitalComment on above:Performed By: #### 67685 #### [facility] [address] [place] [address], USAPotassium [Moles/Vol]4.3 mmol/LNormal3.5-5.1The [facility] HospitalComment on above:Performed By: #### 11805 #### [facility] [address] [place] [address], USAProtein [Mass/Vol]7.2 g/dLNormal6.0-8.3The [facility] HospitalComment on above:Performed By: #### 03179 #### [facility] [address] [place] [address], USASodium [Moles/Vol]138 mmol/CHlduhg049-997Pfc [facility] HospitalComment on above:Performed By: #### 33415 #### [facility] [address] [place] [address], USAUrea nitrogen [Mass/Vol]24 mg/dLNormal7-25The [facility] HospitalComment on above:Performed By: #### 77140 #### [address] [address], USACT LUMBAR SPINE WO CONTRASTon 02-42-2221KI LUMBAR SPINE WO CONTRASTUnSelect Medical Specialty [facility] Department of Radiology [address] [place] [id number] Patient Name: ADDIE JEAN BAPTISTE : 1975 Sex: F Age: Race: White Pt. Location: [facility] Patient Status: E Ordered Date: 08/10/2019 [...] achievable Electronically signed: Carie Sanchez. Transcribed by: [email or web address], User Resident: Electronically Signed by: CARIE SANCHEZ @ 08/10/2019 08:35 PMNMcKitrick HospitalComment on above:Order Comment: Spinal StenosisKEPPRA ILon 20-54-0828GBKltxnoRtwHenry County Hospital Comment on above:Result Comment: Test Performed by [facility] [address] [place] [address] - Released 08/10/2019 22:11AQTKHT81 ug/mLNMcKitrick HospitalComment on above:Result Comment: A reference [...] concentrations and toxicity is not known.LITHIUM on 06-98-4755Nmreedo [Moles/Vol]NormalThe [facility] Comment on above:Result Comment: Test Performed by [facility] [place] [address] - Released 08/10/2019 22:35 Result changed by IF on 08/10/2019 22:35. The previous value was Test Performed by [facility] [address] [place] [address] [phone]..[place] [Moles/Vol]mmol/LLow0.6-1.2The [facility] POC URINE PREGNANCYon 43-20-7975Ugol HCG ( test) Ql (U)NegativeNormal NEGATIVEThe [facility] Willard HospitalComment on above:Result Comment: Performed in Emergency Department.Performed By: #### [id number] #### [facility] [address] [place] [address], USATOX PANEL URINEon 36-89-891723 THCNegativeNormalNEGATIVEThe [facility] Willard HospitalComment on above:Performed By: #### 48512 #### [facility] [address] [place] [address], USABARBITURATESNegativeNormalNEGATIVEThe [facility] HospitalComment on above:Performed By: #### 85357 #### [facility] [address] [place] [address], USABenzodiazepines Ql (U)NegativeNormalNEGATIVEThe [facility] HospitalComment on above:Performed By: #### 84664 #### [facility] [address] [place] [address], USACocaine Ql (U)NegativeNormalNEGATIVEThe [facility] Will[facility] HospitalComment on above:Performed By: #### 03528 #### [facility] [address] [place] [address], USAMethadone Ql (U)NegativeNormalNEGATIVEThe [facility] HospitalComment on above:Performed By: #### 71965 #### [facility] [address] [place] [address], USAMONO AMPHETNegativeNormalNEGATIVEThe [facility] HospitalComment on above:Performed By: #### 25564 #### [facility] [address] [place] [address], USAOpiates Ql (U)NegativeNormalNEGATIVEThe [facility] HospitalComment on above:Performed By: #### 39225 #### [facility] [address] [place] [address], USAPhencyclidine Ql (U)NegativeNormalNEGATIVEThe [facility] HospitalComment on above:Performed By: #### 23868 #### [facility] [address] [place] [address], USAPROPOXYPHENENegativeNormalNEGATIVEThe [facility] Will[facility] HospitalComment on above:Performed By: #### 53680 #### [facility] [address] [place] [address], USATRICYCLICSPositiveAbnormalNEGATIVEThe [facility] HospitalComment on above:Performed By: #### 21764 #### [facility] [address] [place] [address], USAVALPROIC ACIDon 73-87-6928QATSVSWO ACID (DEPAKOTE)57 mcg/mL Gtt85-080Yom [facility] HospitalComment on above:Performed By: #### 70638 #### [facility] [address] [place] [address], USACHEST 2 VIEW PA AND LATon 89-05-4648WIPVV 2 VIEW PA AND LAT Patient Name: ORGAN, ADDIE STUDY: CHEST 2 VIEW PA AND LAT; 04/07/2019 7:13 am INDICATION: Pneumothorax. COMPARISON: 04/06/2019 ACCESSION NUMBER(S): [id number] ORDERING CLINICIAN: RADHA STEELE FINDINGS: There is [...] pacemaker/ICD implant Electronically signed by: MK HERNANDEZ MDRoxbury Treatment CenterDischarge Jzyyvox7np 24-60-7764Eztoggpkp Jxtnqid6Aryywghvn Orders: Problem List: Additional Dx: AICD (automatic [...] dual chamber ICD upgrade currently with a Egr [employer] [id number] Evera MRI XT DR device. See full [...] 3 month follow up with EP in [facility] office, CXR, and device check. Provider FINAL REVIEW of Orders: Final Review: Final Review of Medication Reconciliation and Orders Completedby LYLE Reviewing ProviderMARY Baez at 07-Apr-2019 13:43:42 Appointments: Follow-Up Appointment 01: Physician/Dept/Kyle [facility] office Reason for Referralwound check Scheduled Date/Sewf90-Myj-8401 02:30 Phone [phone] Follow-Up Appointment 02: [facility] Reason for Referralchest X-Ray Scheduled Date/Hyqz37-Sls-8182 02:15 Phone [phone] Follow-Up Appointment 03[facility] Reason for Referraldevice check Scheduled Date/Zjsi00-Pbd-1511 03:00 Phone [phone] Follow-Up Appointment 04: Physician/Dept/ServiceDr. Noble Scheduled Date/Weaq18-Rgv-6775 03:40 Phone [phone] Electronic Signatures: Radha Steele (CUT OUT OPERATOR-CORRECTIONAL FACILITY PSYCHIATRIST) (Signed 07-Apr-2019 13:51) Authored: Discharge Orders, Hospital Course (Home Care/Gold Form), Provider FINAL REVIEW of Orders, Gold Form - Insole Department Worker Summary Ida Brand (CN) (Signed 07-Apr-2019 13:50) Authored: Appointments Last Updated: 07-Apr-2019 13:51 by Radha Steele (CUT OUT OPERATOR-CORRECTIONAL FACILITY PSYCHIATRIST)[facility]bury Treatment CenterGLUCOSE-POCTon 42-21-7251Shskjln [Mass/Vol]150 mg/yKPpjm06 - 99UC[facility] Highlands Ranch HospitalComment on above:Performed By: #### CBC #### [address] [address]Ecjqgvt [Mass/Vol]205 mg/fPZetp11 - 99[facility] Comment on above:Performed By: #### CBC #### [address] [address]Hfbwzmr [Mass/Vol]365 mg/cDQyxt39 - 99[facility] Comment on above:Performed By: #### CBC #### [address] [address]FTZME METABOLIC PANELon 94-30-4313Ejysb gap [Moles/Vol]17 mmol/L Ckotxh91 - 20UCHealth Highlands Ranch HospitalComment on above:Performed By: #### BMP #### [address] [address]Demvmdm [Mass/Vol]8.8 mg/dLNormal8.6 - 10.3UCHealth Highlands Ranch HospitalComment on above:Performed By: #### BMP #### [address] [address]Ehywbbft [Moles/Vol]97 mmol/LLow98 - 107[facility] Comment on above:Performed By: #### BMP #### [address] [address]Terdhaawiw [Mass/Vol]0.80 mg/dLNormal0.50 - 1.05[facility] Medical CenterComment on above:Performed By: #### BMP #### [address] [address]THP-JAEAEMW AM.>60Normal>60[facility] Medical CenterComment on above:Result Comment: CALCULATIONS OF ESTIMATED GFR ARE PERFORMED USING THE MDRD STUDY EQUATION FOR THE IDMS-TRACEABLE CREATININE METHODS. CLIN CHEM 2007;53:766-72Performed By: #### BMP #### [address] [address]FOS-UYI AM.>60Normal>60[facility] CenterComment on above:Performed By: #### BMP #### [address] [address]Rgjiyyh [Mass/Vol]429 mg/zBZuyr25 - 99[facility] Comment on above:Performed By: #### BMP #### [address] [address]AQR5 (Bld) [Moles/Vol]21 mmol/UYyczjf29 - 32[facility] CenterComment on above:Performed By: #### BMP #### [address] [address]Snrujloxi [Moles/Vol]3.8 mmol/LNormal3.5 - 5.3[facility] CenterComment on above:Performed By: #### BMP #### [address] [address]Szpcbo [Moles/Vol]131 mmol/XKqs489 - 145[facility] Comment on above:Performed By: #### BMP #### [address] [address]Irdh nitrogen [Mass/Vol]16 mg/dLNormal6 - 23[facility] CenterComment on above:Performed By: #### BMP #### [address] [address]UZUzq 66-90-1525Ydyjrolhzls distribution width (RBC) [Ratio]11.7 %Zwyzof02.5 - 14.5[facility] CenterComment on above:Performed By: #### CBC #### [address] [address]Tfnzuspdfp (Bld) [Volume fraction]40.2 %Vfnvxu60.0 - 46.0[facility] CenterComment on above:Performed By: #### CBC #### [address] [address]Vsvejsmbcw (Bld) [Mass/Vol]13.9 g/kYCcpxaf61.0 - 16.0[facility] CenterComment on above:Performed By: #### CBC #### [address] [address]WBEX (RBC) [Mass/Vol]34.6 g/eCCyrrck48.0 - 36.0[facility] [facility] CenterComment on above:Performed By: #### CBC #### [address] [address]HRE (RBC) [Entitic vol]88 aARukieo46 - 100UH [facility] CenterComment on above:Performed By: #### CBC #### [address] [address]Ybwbtvkto (Bld) [#/Vol]306 10*3/mZPcrlgf194 - 450UH [facility] CenterComment on above:Performed By: #### CBC #### [address] [address]IOK (Bld) [#/Vol]4.57 x10E12/LNormal4.00 - 5.20UH [facility] CenterComment on above:Performed By: #### CBC #### [address] [address]TVU (Bld) [#/Vol]9.4 10*3/uLNormal4.4 - 11.3UH [facility] CenterComment on above:Performed By: #### CBC #### [address] [address]YRKYG 2 VIEW PA AND LATon [id number] 2 VIEW PA AND LATMRN: [id number] Patient Name: ORGAN, ADDIE STUDY: TH CHEST 2 VIEW PA AND LAT; 04/06/2019 8:05 am INDICATION: SVT, preop implant. COMPARISON: None. ACCESSION NUMBER(S): [id number] ORDERING CLINICIAN: ROSALIA NOBLE FINDINGS: CARDIOMEDIASTINAL SILHOUETTE: [...] No focal infiltrate. Electronically signed by: Marlyn COTTERAdventHealth PorterCOAGULATION SCREENon 53-02-3487lZRW Coag (Bld) [Time]29 vQrkwtz13 - 38UH [facility] CenterComment on above:Result Comment: THE APTT IS NO LONGER USED FOR MONITORING UNFRACTIONATED HEPARIN THERAPY. FOR MONITORING HEPARIN THERAPY, USE THE HEPARIN ASSAY.Performed By: #### COAGS #### [address] [address]CXF Coag (PPP) [Relative time]1.0 {INR}Normal0.9 - 1.1UH [facility] Medical CenterComment on above:Performed By: #### COAGS #### [address] [address]KT Coag (PPP) [Time]10.8 sNormal9.7 - 12.7UH [facility] CenterComment on above:Performed By: #### COAGS #### [address] [address]Fhngd Progress Note-Electrophysiologyon 59-92-8115Dwweq Progress Note-ElectrophysiologyService: Electrophysiology Assessment and Plan: Assessment: [...] of infection. The patient should call the home health lvn immediately if symptoms recur, or for any problems. The patient and mother(message left on phone with HIPPA consent) have been instructed accordingly. 2.Follow up with [facility] office in seven days for post-operative wound assessment. 3.Follow up with [facility] in twelve weeks for routine device analysis and reprogramming if necessary. Remote monitoring will be instituted and released from [facility] to [facility] as per patient request. Procedures: Complete [...] was placed. 11.A dual-chamber cardioverter defibrillator (Med [id number] #[id number]) was attached to the leads and implanted. [...] 6 Fr high RA, CS Bpst Sci [place] new access Right femoral vein 6 Fr His-bundle (right side) Eddy Sci Vikingnew access Right femoral vein 6 Fr RV apex, RVOT Eddy Sci [place] new access Complications: The patient tolerated the procedure without any complications or incident. EBL 0 cc Specimens obtained: No Prepared and signed by. Electronic Signatures: Rosalia Noble) (Signed 06-Apr-2019 16:32) Authored: Service, Objective Data, Assessment and Plan, Signature/Cosignature/Attestation Last Updated: 06-Apr-2019 16:32 by Rosalia Noble)[facility] GLUCOSE-POCTon 78-32-7328Jhfyshw [Mass/Vol]409 mg/zLWdpv8284 Khan StreetComment on above:Performed By: #### CBC #### [address] [address]Hwyamvk [Mass/Vol]136 mg/rHZlvi6084 [address] Comment on above:Performed By: #### CBC #### [address] [address]Ucehses [Mass/Vol]167 mg/fOFoeh8484 [address] Comment on above:Performed By: #### CBC #### [address] [address]Rzgsfqm [Mass/Vol]218 mg/uJIhxs0984 [address] Comment on above:Performed By: #### CBC #### [address] [address]Jgomjtm [Mass/Vol]338 mg/jHYxxw7784 [address] Comment on above:Performed By: #### GLUPO #### [address] [address]Euxlowv [Mass/Vol]415 mg/uBGebb0784 [address] Comment on above:Performed By: #### GLUPO #### [address] [address]KVS,SERUM QUALITATIVEon 36-81-7767UUA,SERUM QUALITATIVENegative NormalNegativeUCHealth Highlands Ranch HospitalComment on above:Performed By: #### HCGS #### [address] [address]Pstsmlh Profile - Preop v2on 67-60-9103Jxrvmha Profile - Preop p6Qxgfpgn: Initial Info: How to be AddressedCathy Spoken Language PreferredEnglish Source of Informationpatient; family Are you currently using the Personal Electronic Health Record or [employer]ree Advanced Illumination SolutionsSELECT MEDICAL OHIOHEALTH REHABILITATION HOSPITAL - DUBLINno Are you interested in learning more about MYSELECT MEDICAL [facility] for the management of your healthnot at this time Stated Reason for AdmissionEPS Primary Contact Name and NumberSharon Organ [phone] Limitations on Visitors/Phone Callsnone Patient Belongingsremains with patient Patient Belongings Remaining with Patientcell phone/electronics; clothing Medications Brought to Hospitalyes General Health: Weight in kg91.1 kilogram(s) Weight in zky106.8 pound(s) Weight Methodstated Scale Typestanding Height in [...] Transitionnone Lives Withspouse Living Arrangementshouse Anticipated Transition [place] Substance: Current or Former Substance Use never: [...] Learning Preferencesindividual instruction Cultural Considerationsnone Developmental Considerationsnone Orthodoxy Considerationsnone Other learner availableno Falls RiskPatient location auto qualifies him/her for HIGH RISK. Are there any cultural, spiritual, advent practices/values/needs that are important for us to knowno Do you want a visit/item from [facility] Careno Would you like your Senior Technical Trainer/Sisal Operator notifiedno Pain Scalenumerical 0-10 Pain Scale [...] Last Updated: 06-Apr-2019 07:39 by Kristi Soriano (RN)[facility] CenterPreop Checkliston 13-48-3605Pijcj ChecklistPreop Checklist: Preop Checklist: Arrival Rtvc06-Mdo-8282 Arrival Time06:38 Temperature C36.1 degrees C Temperature F96.9 degrees F Heart Rate60 beats per minute Respiratory Rate18 breath per minute Blood Pressure Qurotxrr10 mm/Hg Blood Pressure Mqrmejmqx95 mm/Hg NPO Maezrn58-Dgl-8584 23:00 ID Band Onyes Allergy Bandyes H&P [...] Last Updated: 06-Apr-2019 07:42 by Kristi Soriano (JAEL)[facility] CenterUA MICROSCOPICon 29-75-4158CZJEQLGD9+ /[facility]PITALAbWay[facility] Hospital Comment on above:Performed By: #### CBC #### [address] [address]DZIAN3+ /LPFNoAdventHealth PorterComment on above: Performed By: #### CBC #### [address], [place] [address]DGJ2 /[facility] HOSPITALNormal0-5UCHealth Highlands Ranch HospitalComment on above: Performed By: #### CBC #### [address], [place] [address]QPTGMINO EPITH. CELLS3 /[facility] HOSPITALNoAdventHealth PorterComment on above:Performed By: #### CBC #### [address] [address]RUC8 /HPFAbnormal0-5UCHealth Highlands Ranch HospitalComment on above: Performed By: #### CBC #### [address] [address]SYJBRBDPLQyx 93-55-1280Hlwnznbbml (U)CLEARNormalCLEARUCHealth Highlands Ranch HospitalComment on above:Performed By: #### UA #### [address] [address]Gcxotvmrs (U) [Mass/Vol]NegativeNormalNEGATIVEUCHealth Highlands Ranch HospitalComment on above:Performed By: #### UA #### [address] [address]OYIBRUhdfeabsLqdtibJBRKWJDUJY [facility] CenterComment on above:Performed By: #### UA #### [address] [address]Qqggz (U)YELLOWNormalSTRAW,YELLOWUCHealth Highlands Ranch HospitalComment on above:Performed By: #### UA #### [address] [address]Ivjuhpk [Mass/Vol]>=500 (3+)AbnormalNEGATIVEUCHealth Highlands Ranch HospitalComment on above:Performed By: #### UA #### [address] [address]Coaszrp Ql (U)NegativeNormalNEGOur Lady of the Lake Regional Medical Center Comment on above:Performed By: #### UA #### [address] [address]Ewviyjmxl esterase Test strip Ql (U)TRACEAbnormarNEGOur Lady of the Lake Regional Medical CenterComment on above:Performed By: #### UA #### [address] [address]Tczyqqw Ql (U)PositiveAbNorthern Light A.R. Gould Hospital Comment on above:Performed By: #### UA #### [address] [address]sP (Bld)5.8Bmngyd7.0 - 8.0UCHealth Highlands Ranch HospitalComment on above:Performed By: #### UA #### [address] [address]Maoknac (U) [Mass/Vol]NegativeNormalNEGATIVEUCHealth Highlands Ranch HospitalComment on above:Performed By: #### UA #### [address] [address]Vwencfat gravity (U) [Rel density]1.514Plfjdw3.005 - 1.035UCHealth Highlands Ranch HospitalComment on above:Performed By: #### UA #### [address] [address]Dbbbyymaefxf Qn (U)<2.0Qvwazf3.0 - 1.9UCHealth [facility] Hospital Comment on above:Performed By: #### UA #### [address] [address]Xmdigleqqs Studieson 55-38-3337Ephdiqy [Mass/Vol]9.8 mg/dL 8.2-10.2FZanesville City Hospital CtrChloride [Moles/Vol]98 mmol/L95-114 [facility] CtrCO2 [Moles/Vol]19.7 mmol/LLow22.0-30.0[facility] CtrCreatinine [Mass/Vol]0.88 mg/dL0.44-1.03[facility] CtrGFR/1.73 sq M predicted among non-blacks MDRD (S/P/Bld) [Vol rate/Area]mL/min/{1.73_m2}[facility] CtrGFR/1.73 sq M.predicted MDRD (S/P/Bld) [Vol rate/Area]mL/min/{1.73_m2}[facility]tr Comment on above:GFR estimated reference range: According to KDOQI guidelines, <60 ml/min/1.73m2 is sufficient todiagnose a patient with chronic kidney disease.Glucose [Mass/Vol]436 mg/fBWaph18-227RleaalkklMercy Health Perrysburg Hospital Ctr Comment on above:ADA recommended reference range Random Glucose Reference Range is dependent on time and content of last meal. Glucose of more than 200 mg/dL in a nonstressed, ambulatory subject supports the diagnosis of Diabetes Mellitus.Pharmacy Creatinine Clearance (ChemN/AFZanesville City Hospital CtrPotassium [Moles/Vol]4.3 mmol/L3.5-5.1FZanesville City Hospital CtrSodium [Moles/Vol]134 mmol/ZDps357-457IcikfcurqMercy Health Perrysburg Hospital Ctr Urea nitrogen [Mass/Vol]13 mg/dL9-23[facility] CtrLaboratory Studieson 41-15-5418Jzvmyuy [Mass/Vol]148 mg/dLMercy Health Perrysburg Hospital Ctr Comment on above:Random Glucose Reference Range is dependent on time and content of last meal. Glucose of more than 200 mg/dL in a nonstressed, ambulatory subject supports the diagnosis of Diabetes Mellitus.Basophils (Bld) [#/Vol]0.1 10*3/uL0.0-0.2FZanesville City Hospital CtrBasophils/100 WBC (Bld)0.4 % [facility] CtrEosinophils (Bld) [#/Vol]0.2 10*3/uL0.0-0.45 [facility] CtrEosinophils/100 WBC (Bld)1.6 %[facility] CtrErythrocyte distribution width (RBC) [Ratio]12.7 %11.9-15.3FZanesville City Hospital CtrHematocrit (Bld) [Volume fraction]33.9 %Low34.0-46.4 [facility] CtrHemoglobin (Bld) [Mass/Vol]11.5 g/dLLow11.8-15.4 [facility] CtrLymphocytes (Bld) [#/Vol]3.2 10*3/uL1.00-4.8 [facility] CtrLymphocytes/100 WBC (Bld)25.2 %[facility] CtrMCH (RBC) [Entitic mass]31.2 pg24.7-34.3FZanesville City Hospital CtrMCHC (RBC) [Mass/Vol]34.0 g/dL32.0-35.0[facility] CtrMCV (RBC) [Entitic vol]92.0 iG31-965OwnjjolhsMercy Health Perrysburg Hospital CtrMonocytes (Bld) [#/Vol]0.6 10*3/uL0.0-0.8[facility] CtrMonocytes/100 WBC (Bld) 4.3 %[facility] CtrNeutrophils (Bld) [#/Vol]8.7 10*3/uLHigh 1.8-7.7FZanesville City Hospital CtrNeutrophils/100 WBC (Bld)68.5 %[facility] CtrNucleated RBC/100 WBC (Bld) [Ratio]0.0 %0-0.5FZanesville City Hospital CtrPlatelet mean volume (Bld) [Entitic vol]7.3 fL6.3-10.7 [facility] CtrPlatelets (Bld) [#/Vol]297 10*3/lT491-887KcynsgqjeMercy Health Perrysburg Hospital CtrRBC (Bld) [#/Vol]3.68 10*6/uL3.60-5.00[facility] CtrWBC (Bld) [#/Vol]12.7 10*3/uLHigh4.5-11.0[facility] CtrGlucose [Mass/Vol]Glu2: cleaned meterMercy Health Perrysburg Hospital CtrLaboratory Studieson 37-19-8494Szcergb [Mass/Vol]Will notify /ShellyZanesville City Hospital CtrAlbumin [Mass/Vol]3.0 g/dLLow3.2-5.5FZanesville City Hospital Ctr Albumin/Globulin [Mass ratio]1.1 {ratio}[facility] CtrALP [Catalytic activity/Vol]68 U/Q40-09UbvjamzslMercy Health Perrysburg Hospital CtrALT No additional P-5'-P [Catalytic activity/Vol]12 U/R64-28ZxnrrwhwbMercy Health Perrysburg Hospital CtrAST [Catalytic activity/Vol]17 U/N39-35NtmgppidwMercy Health Perrysburg Hospital Ctr Bilirubin [Mass/Vol]0.6 mg/dL0.3-1.2FZanesville City Hospital CtrCholesterol [Mass/Vol]123 mg/hBKfs940-434KpnvxntyuMercy Health Perrysburg Hospital CtrComment on above:Chol less than 200 mg/dl low risk Chol 201-239 mg/dl borderline risk Chol 240 mg/dl and greater high riskCholesterol in HDL [Mass/Vol]51 mg/dL35-85 [facility] CtrComment on above:HDL CHOL ATP-III CLASSIFICATION Cardiovascular Risk HDL > or equal to 60 mg/dL LOW HDL < 40 mg/dL HIGHCholesterol in LDL [Mass/Vol]57 mg/dL0-100[facility] CtrComment on above:LDL ATP III CLASSIFICATION LDL less than 100 mg/dL Optimal LDL 100-129 mg/dL Near or above optimal LDL 130-159 mg/dL Borderline high LDL 160-189 mg/dL High LDL greater than 189 mg/dL Very highCholesterol in VLDL [Mass/Vol]15 mg/dL [facility] CtrCholesterol.total/Cholesterol in HDL [Mass ratio] 2.4 {ratio}[facility] CtrGlobulin (S) [Mass/Vol]2.7 g/dL [facility] CtrProtein [Mass/Vol]5.7 g/dLLow6.1-7.9[facility] CtrTriglyceride [Mass/Vol]75 mg/sP07-860HxjglzsbyMercy Health Perrysburg Hospital CtrComment on above:TRIG ATP III CLASSIFICATION TRIG less than 150 mg/dL Normal TRIG 150-199 mg/dL Borderline high TRIG 200-500 mg/dL High TRIG greater than 500 mg/dL Very high Standard traceable to the Center for Disease Conrtrol and Prevention (CDC) test method.Laboratory Studieson 39-05-2543Tuwvfzy [Moles/Vol]1.4 mmol/LFZanesville City Hospital CtrCK [Catalytic activity/Vol]35 U/F59-029CzwromartMercy Health Perrysburg Hospital CtrINR Coag (PPP) [Relative time]1.0 {INR}[facility] Comment on above:INR Therapeutic Range [...] mechanical heart valves: 3 - 4.5Prolactin [Mass/Vol]6.20 ng/mL3.34-26.72[facility] CtrPT Coag (PPP) [Time]11.0 s9.0-12.9 [facility] CtrTroponin I.cardiac [Mass/Vol]ng/mL0-0.02[facility] CtrComment on above:[place] Cut off value > or equal to 0.03 ng/mL in conjunction with clinical conditions of myocardial infarction. (www.escardio.org/guidelines)Amphetamines Ql (U)NegativeMercy Health Perrysburg Hospital CtrBarbiturates Ql (U)NegativeMercy Health Perrysburg Hospital Ctr Benzodiazepines Ql (U)NegativeMercy Health Perrysburg Hospital CtrBilirubin Ql (U) NegativeMercy Health Perrysburg Hospital CtrCannabinoids Screen Ql (U)Negative [facility] CtrComment on above:These are unconfirmed results and should not be used for legal purposes. Drug Cut-Off Concentration: AMPH 1000 ng/mL JULIANNA 200 ng/mL ALICE 200 ng/mL COCM 300 ng/mL OP 300 ng/mL PCP 25 ng/mL THC 20 ng/mLClarity Refractometry automated (U)[facility] CtrCocaine Ql (U)[facility] CtrColor (U)YellowMercy Health Perrysburg Hospital CtrGlucose Auto test strip (U) [Mass/Vol]500 mg/dLHighMercy Health Perrysburg Hospital CtrHCG ( test) Ql (U)[facility] CtrHemoglobin Auto test strip Ql (U)[facility] CtrKetones (U) [Mass/Vol][facility] CtrLeukocyte esterase Auto test strip Ql (U)[facility] CtrNitrite Ql (U)[facility] CtrOpiates Ql (U)[facility] CtrpH (U)6.0 [pH]5.0-9.0[facility] Phencyclidine Ql (U)[facility] CtrProtein (U) [Mass/Vol] [facility] CtrSpecific gravity (U) [Rel density]1.020 1.001-1.030[facility] CtrUrobilinogen (U) [Mass/Vol]Normal mg/dL [facility] CtrMicrobiology Studieson 79-54-8691Ucuplhfcmmuqjd aureusStaphylococcus aureusMercy Health [facility] Hospital CtrBASIC METABOLIC PANELon 93-40-2474Iotclud mass qdjr902 mg/dLCritically aybe82-507AeegsdwbSageWest Healthcare [facility] [place] on above:Order Comment: CALLED ER 06/25/2018, 15:09, KJD, Called with verbal read back by Romeo Castillo.Result Comment: RESULTS REPEATED AND CONFIRMEDPerformed By: #### BASIC #### [address] [address] Anion gap molar conc15.6 mmol/OSlpdro61-67NslsmxzeSageWest Healthcare - [place] - [place] on above:Order Comment: CALLED ER 06/25/2018, 15:09, KJD, Called with verbal read back by Romeo Castillo.Performed By: #### BASIC #### [address] [address] Calcium mass conc9.8 mg/dLNormal8.4-10.2MWashakie Medical Center - Worland on above:Order Comment: CALLED ER 06/25/2018, 15:09, KJD, Called with verbal read back by Romeo Castillo.Performed By: #### BASIC #### [address] [address] CO2 molar conc25.0 mm/TtFzhkoi20.0-30.0[facility] [place] on above:Order Comment: CALLED ER 06/25/2018, 15:09, KJD, Called with verbal read back by Romeo Castillo.Performed By: #### BASIC #### [address] [address] Urea nitrogen mass conc11 mg/dLNormal7-22[facility] [place] above:Order Comment: CALLED ER 06/25/2018, 15:09, KJD, Called with verbal read back by Romeo Castillo.Performed By: #### BASIC #### [address] [address] Creatinine mass conc0.70 mg/dLNormal0.70-1.20[facility] [place] above:Order Comment: CALLED ER 06/25/2018, 15:09, KJD, Called with verbal read back by Romeo Castillo.Performed By: #### BASIC #### [address] [address] GFR/1.73 sq M predicted among non-blacks MDRD vol rate/area (S/P/Bld)98 mL/min/1.73 x9Ysohij>60MeWest Park Hospital Comment on above:Order Comment: CALLED ER 06/25/2018, [...] OR very young -Races other than or -Greek -People with acute illnesses, amputations, or acute kidney failure. Estimated GFR should be interpreted in clinical context and an alternative method such as a timed urine collection for creatinine clearance used to verify questionable results. (Ref. National Kidney Foundation 2015)Performed By: #### BASIC #### [address] [address] Chloride molar conc94 mmol/GFzx127-249RagtjsgsWest Park HospitalComcovenant medical center on above:Order Comment: CALLED ER 06/25/2018, 15:09, KJD, Called with verbal read back by Romeo Castillo.Performed By: #### BASIC #### [address] [address] Potassium molar conc4.1 mmol/LNormal3.5-5.0MeWest Park HospitalComcovenant medical center on above:Order Comment: CALLED ER 06/25/2018, 15:09, KJD, Called with verbal read back by Romeo Castillo.Performed By: #### BASIC #### [address] [address] Sodium molar hmzz590 mmol/LPfq183-452JspnaysmSageWest Healthcare - [place] - [place] on above:Order Comment: CALLED ER 06/25/2018, 15:09, KJD, Called with verbal read back by Romeo Castillo.Performed By: #### BASIC #### [address] [address] CARP1 0 HR DRAWon 57-23-4562Vhvgazgv I.cardiac mass conc ng/mLNormal0.012-0.120[facility] [place] above:Order Comment: CALLED ER 06/25/2018, 15:09, KJD, Called with verbal read back by Romeo Castillo.Result Comment: REFERENCE RANGE IS 0.012 - 0.120 ng/ml cTnI - The cutoff of 0.120 ng/ml is recommended for diagnosis of AMI, yielding optimal performance of 95% sensitivity and 93% specificity.Performed By: #### CTP0 #### [address] [address] CARP1 3 HR DRAWon 56-94-4247Qvpzchpx I.cardiac mass conc ng/mLNormal0.012-0.120[facility] [place] above:Result Comment: REFERENCE RANGE IS 0.012 - 0.120 ng/ml cTnI - The cutoff of 0.120 ng/ml is recommended for diagnosis of AMI, yielding optimal performance of 95% sensitivity and 93% specificity.Performed By: #### CTP3 #### [address] [address] CBC WITH DIFFERENTIALon 12-70-4385Nklkmjsdk #/vol (Bld) 0.07 10*3/uLNormal0.00-0.20[facility] [place] above: Performed By: #### CBCD #### [address] [address] Basophils #/vol (Bld)0.7 %Normal0.0-2.0[facility] [place] above:Performed By: #### CBCD #### [address] [address] Eosinophils #/vol (Bld)0.12 10*3/uLNormal0.00-0.50 [facility] [place] above:Performed By: #### CBCD #### [address] [address] Eosinophils/100 WBC (Bld)1.2 %Normal0.0-4.0[facility] [place] above:Performed By: #### CBCD #### [address] [address] Erythrocyte distribution width Ratio (RBC)11.5 %Normal 11.5-14.5[facility] [place] above:Performed By: #### CBCD #### [address] [address] Hematocrit Volume Fraction (Bld)42.3 %Fmilld72.0-47.0 [facility] [place] above:Performed By: #### CBCD #### [address] [address] Hemoglobin mass conc (Bld)14.8 g/wPOpfdzo85.0-16.0 [facility] [place] above:Performed By: #### CBCD #### [address] [address] Lymphocytes #/vol (Bld)1.60 10*3/uLNormal1.00-4.80 [facility] [place] above:Performed By: #### CBCD #### [address] [address] Lymphocytes/100 WBC (Bld)15.6 %Low24.0-44.0[facility] [place] above:Performed By: #### CBCD #### [address] [address] MCH Entitic mass (RBC)31.1 brNlovwm11.6-32.2MemHot Springs Memorial Hospital - [place] on above:Performed By: #### CBCD #### [address] [address] MCHC mass conc (RBC)35.0 g/qONrejjf38.0-36.0[facility] [place] above:Performed By: #### CBCD #### [address] [address] MCV Entitic volume (RBC)88.9 aYFmhiph47.0-98.0[facility] [place] above:Performed By: #### CBCD #### [address] [address] Monocytes #/vol (Bld)0.56 10*3/uLNormal0.20-1.20[facility] [place] above:Performed By: #### CBCD #### [address] [address] Monocytes/100 WBC (Bld)5.5 %Normal5.0-12.0[facility] [place] above:Performed By: #### CBCD #### [address] [address] Neutrophils #/vol (Bld)7.84 10*3/uLHigh2.00-7.50[facility] [place] above:Performed By: #### CBCD #### [address] [address] Neutrophils/100 WBC (Bld)76.6 %High36.0-66.0Mewyrial Hospital of Union CountyComment on above:Performed By: #### CBCD #### [address] [address] NRBC COUNT0.33Prwuwp8.00-0.50[facility] [place] above:Performed By: #### CBCD #### [place] [id number] Nucleated RBC/100 WBC Ratio (Bld)0.0 %NormalSageWest Healthcare - Riverton - [place] on above:Performed By: #### CBCD #### [place] [id number] Platelet mean volume Entitic volume (Bld)9.7 fLNormal 9.4-12.4[facility] [place] above:Performed By: #### CBCD #### [address] [address] Platelets #/vol (Bld)314 10*3/bJDyorjm986-977VdqxgsmlSageWest Healthcare - [place] on above:Performed By: #### CBCD #### [address] [address] RBC #/vol (Bld)4.76 10*6/uLNormal3.80-5.10[facility] [place] above:Performed By: #### CBCD #### [address] [address] WBC #/vol (Bld)10.23 10*3/uLNormal4.80-10.80[facility] [place] above:Performed By: #### CBCD #### [address] [address] [phone]-WLUQQhd 73-01-4475GWJSCDK-URINEPATIENT: ORGAN, ADDIE J [id number] : 1975 AGE: 43 SEX: F ORDER# [id number] ORDERED BY: PRESTON ESPINO Source: URI Collected: [...] <=4 S Tobramycin <=4 S Trimeth/Sulfa <=2/ SNormalVA Medical Center [facility] - CheyenneComcovenant medical center on above: Performed By: #### EKATERINA #### [place] [address] 120-6876V-VGGMK QUANTITATIVEon 55-77-4273K-DIMER QUANTITATIVE0.32 mg/L FEUNormal0.00-0.50[facility]Comc[facility] medical center on above:Result Comment: 06-16-16 D-DIMER QUANTITATIVE REFERENCE INTERVAL: Anticoagulant therapy decreases the D-dimer levels and may generate false negative results Quantitative D-dimer performed on the Sysmex [id number] analyzer. Cutoff value is 0.50 mg/L FEU in an attempt to obtain a negative predictive value close to 100 percent. (for DVT and PE). Non-VTE causes of elevated D-dimer include: trauma, [place], stroke, sepsis, DIC, active collagen diseases, post-surgery, cancer, thrombolytic therapy, large hematoma, diabetes, and post-. Clinical data and imaging studies may be used in order to confirm a positive D-dimer test. The above D-dimer assay may be used for DIC screening in conjunction with other coagulation procedures (PT, PTT, fibrinogen and platelet count). Pathology consultation is available. 6-02-81Wsdyftzhn By: #### DDIME #### [place] [address] MAGNESIUMon 72-53-4463Ectabbbmd mass conc1.4 mg/dLLow 1.7-2.2MemHot [facility] [place] on above:Order Comment: CALLED ER 06/25/2018, 15:09, KJD, Called with verbal read back by Romeo Castillo.Performed By: #### MAG #### [place] [address] UA COMPLETE AND REFLEX TO CULTUREon [id number]+ /hpfAbnoMemorial Hospital of Converse County on above:Performed By: #### URINR #### [address] [address] HYALINE CASTSNONENoMemorial Hospital of Converse County on above:Performed By: #### URINR #### [address] [address] RBC - URINE7 /hpfHigh0-2[facility] on above:Performed By: #### URINR #### [address] [address] URINE EPITHELIAL CELLS1 /hpfNormal0-[address] [place] [address] on above:Performed By: #### URINR #### [address] [address] URINE REFLEX CASTSNORMALFormerly [facility] on above:Performed By: #### URINR #### [address] [address] URINE REFLEX CELLSNORMALFormerly [facility] on above:Performed By: #### URINR #### [address] [address] URINE REFLEX CRYSTALSNORMALNormCarbon County Memorial Hospital on above:Performed By: #### URINR #### [address] [address] URINE REFLEX YEASTNORMALNoSouth Big Horn [facility] on above:Performed By: #### URINR #### [address] [address] WBC - URINE92 /hpfHigh0-[address] [place] [address] on above:Performed By: #### URINR #### [address] [address] Bilirubin.direct mass concNegativeNormalNEGSouth Lincoln Medical Center on above:Performed By: #### URINR #### [address] [address] BLOODNegativeNormalNEGATIVESageWest Healthcare [facility] [place] on above:Performed By: #### URINR #### [facility] [address] [place] [address] Color Nom (U)LIGHT YELLOWNormalSageWest Healthcare - [place] on above:Performed By: #### URINR #### [facility] [address] [place] [address] Glucose Ql (U)>2000AbnormalNEGATIVESageWest Healthcare - [place] on above:Performed By: #### URINR #### [address] [address] Ketones Ql (U)NegativeNormalNEGSouth Lincoln Medical Center on above:Performed By: #### URINR #### [address] [address] Leukocyte esterase Test strip Ql (U)MODERATEAbnormal NEGATIVESageWest Healthcare [facility] [place] on above:Performed By: #### URINR #### [address] [address] NITRITES URINE2+ mg/dLAbnormalNEGSouth Lincoln Medical Center on above:Performed By: #### URINR #### [address] [address] pH (U)5.5 [pH]Normal6.0-8.5[facility] [place] [facility] [place] above:Performed By: #### URINR #### [address] [address] Protein mass conc (U)NegativeNormalNEG/TRACESageWest Healthcare [facility] [place] on above:Performed By: #### URINR #### [address] [address] Specific gravity Relative Density (U)1.768Eiemdj2.010 - 1.030[facility] Hospital [facility] Union CountyComcovenant medical center on above:Performed By: #### URINR #### [address] [address] TURBIDITYCLEARNoVA Medical Center [facility] Comment on above:Performed By: #### URINR #### [address] [address] UROBILINOGEN URINE0.2 mg/dLNormal<2.0[facility] - Che[facility]enneComcovenant medical center on above:Performed By: #### URINR #### [address] [address] METHOD OF COLLECTING URINENot statedNovant Health Presbyterian Medical CenterComcovenant medical center on above:Performed By: #### URINR #### [address] [address] [phone]-Jibsl Xray - Portable One Viewon 54-50-2031BC-Chest Xray - Portable One ViewCLINICAL INDICATION: CHEST [...] acute cardiopulmonary disease. Read By: CÉSAR RICE DONormalVA [facility] Center [facility] [place] Urinalysis, Routineon 09-81-1701Rqxkhssqvkrbs mass concNegativeNormalNEGMercy Danbury HospitalComment on above:Performed By: #### CDP, BMP, BNP, TROPI, DIME, PT, PTT ####[address] [place] [address] Bilirubin (direct)NegativeNormalNEGMerHospital for Special Care Comment on above:Performed By: #### CDP, BMP, BNP, TROPI, DIME, PT, PTT ####[address] [place] [address] Hemoglobin mass conc (Bld)NegativeNormalNEGMerProMedica Bay Park Hospital HospitalComment on above:Performed By: #### CDP, BMP, BNP, TROPI, DIME, PT, PTT ####[address] [place] [address] Nitrite,UrPositive AbnormalNEGMercy Cleveland HospitalComment on above:Performed By: #### CDP, BMP, BNP, TROPI, DIME, PT, PTT ####[address] [place] [address] TurbiditySLIGHTLY CLOUDYAbnormalCLEARMPremier Health Comment on above:Performed By: #### CDP, BMP, BNP, TROPI, DIME, PT, PTT ####[address] , [place] [address] Urine, colorYELLOWNormalYELMercy Cleveland HospitalComment on above:Performed By: #### CDP, BMP, BNP, TROPI, DIME, PT, PTT ####[address] [place] [address] Urine, glucose presence3+AbnormalNEGChildren'S Hospital Of Columbus HospitalComment on above:Performed By: #### CDP, BMP, BNP, TROPI, DIME, PT, PTT ####[address] [place] [address] Urine, leukocyte esterase presenceNegativeNormalNEGChildren'S Hospital Of Columbus HospitalComment on above:Result Comment: Performed at [address] [place] [address] Performed By: #### CDP, BMP, BNP, TROPI, DIME, PT, PTT ####[address] , [facility]83 Urine, pH5.5 [pH]Normal5.0-9.0[facility] HospitalComment on above:Performed By: #### CDP, BMP, BNP, TROPI, DIME, PT, PTT ####[address] , [place] [address] Urine, protein presence NegativeNormalNEGChildren'S Hospital Of Columbus HospitalComment on above:Performed By: #### CDP, BMP, BNP, TROPI, DIME, PT, PTT ####[address]T [place], [place] [address] Urine, specific gravity1.740Qdtrrk5.010-1.020St[facility]onton CampusComment on above:Performed By: #### CDP, BMP, BNP, TROPI, DIME, PT, PTT ####[address] , [place] [address] Urobilinogen,UrNormalNormalNORMChildren'S Hospital Of Columbus HospitalComment on above:Performed By: #### CDP, BMP, BNP, TROPI, DIME, PT, PTT ####[address] , [place] [address] Urinalysis,Microon 09-02-2017-----NormalSt. Mary'S Medical Center, Ironton CampusComment on above:Performed By: #### CDP, BMP, BNP, TROPI, DIME, PT, PTT ####[address] , [place] [address] Urine WBC's10 TO 34Zordam8-6Qaeoy Tiffin HospitalComment on above:Performed By: #### CDP, BMP, BNP, TROPI, DIME, PT, PTT ####[address] , [facility]83 Urine, bacteria in sediment3+AbnormalNONEMeGaylord HospitalComment on above:Result Comment: Performed at [address] [place], [place] [address] Performed By: #### CDP, BMP, BNP, TROPI, DIME, PT, PTT ####[address] , [facility]83 Urine, epithelial cells in sediment0 TO 8Mwdbdq0-47QgzrjSt. Mary'S Medical Center, [facility]ont[facility] CampusComment on above:Performed By: #### CDP, BMP, BNP, TROPI, DIME, PT, PTT ####[address] , [facility]83 Urine, erythrocytes0 TO 0Ofpgsd1-7EpxyxBackus HospitalComment on above:Performed By: #### CDP, BMP, BNP, TROPI, DIME, PT, PTT ####[address] , [facility]83 Basic Metabolic Profon 09-01-2017(cont.)NormalSt. Mary'S Medical Center, Ironton CampusComment on above:Result Comment: Average GFR for 40-49 years old: 99 mL/min/1.73sq mChronic Kidney Disease: <60 mL/min/1.73sq mKidney failure: <15 mL/min/1.73sq meGFR calculated using average adult body mass. Additional eGFR calculator available at:http://www.[employer]/multiple_crcl_2012.htmPerformed By: #### CDP, BMP, BNP, TROPI, DIME, PT, PTT ####[address] , [place] [address] Anion gap18 mmol/LHigh9-17St. [facility] CampusComment on above:Performed By: #### CDP, BMP, BNP, TROPI, DIME, PT, PTT ####[address] , [place] [address] BUN/CRE Gozod07Qchiwx6-13Ukdzk Tiffin HospitalComment on above:Performed By: #### CDP, BMP, BNP, TROPI, DIME, PT, PTT ####[address]T [place], [facility]83 Zflwxcd6.9 mg/dLLow8.6-10.4[facility] Comment on above:Performed By: #### CDP, BMP, BNP, TROPI, DIME, PT, PTT ####[address] , [place] [address] Waaenlfa868 mmol/SOmjvpd71-313QgqcpSt. Mary'S Medical Center, [facility] CampusComment on above:Performed By: #### CDP, BMP, BNP, TROPI, DIME, PT, PTT ####[address] , [place] [address] ER053 mmol/HKbwhpy38-33UeslgSt. Mary'S Medical Center, [facility] CampusComment on above:Performed By: #### CDP, BMP, BNP, TROPI, DIME, PT, PTT ####[address] , [place] [address] Creatinine0.60 mg/dLNormal0.50-0.90St. [facility] CampusComment on above: Performed By: #### CDP, BMP, BNP, TROPI, DIME, PT, PTT ####[address] , [place] [address]([facility])[phone] (non-black) mL/min/{1.73_m2}Normal>60St. [facility] CampusComment on above:Performed By: #### CDP, BMP, BNP, TROPI, DIME, PT, PTT ####[address] , [place] [address]([facility])[phone] mass jjyc798 mg/yBQelx08-06 [facility] CampusComment on above:Performed By: #### CDP, BMP, BNP, TROPI, DIME, PT, PTT ####[address] , [place] [address]([facility])[phone] molar conc3.3 mmol/LLow3.7-5.3MPremier Health Comment on above:Performed By: #### CDP, BMP, BNP, TROPI, DIME, PT, PTT ####[address] , [place] [address] Sodium 139 mmol/DLjjluk830-168NewzjSt. Mary'S Medical Center, [facility] CampusComment on above:Performed By: #### CDP, BMP, BNP, TROPI, DIME, PT, PTT ####[address] [place] [address] Staging:Genesis HospitalComment on above:Result Comment: Stage 1: Some kidney damage normal GFRStage 2: Mild kidney damage GFR 60-89Stage 3:Moderate kidney damage GFR 30-59Stage 4: Severe kidney damage GFR 15-29Stage 5: Severe kidney damage GFR <15ESRD - chronic treatment by dialysis or transplantPerformed at [address] [place] [address] ([phone] By: #### CDP, BMP, BNP, TROPI, DIME, PT, PTT ####[address] [place] [address] Urea nitrogen7 mg/dLNormal6-20St. [facility] CampusComment on above:Performed By: #### CDP, BMP, BNP, TROPI, DIME, PT, PTT ####[address] [place] [address] Glucose mass vpmr765 mg/dLCritically vpkt96-47CgljnPremier HealthComment on above:Performed By: #### CDP, BMP, BNP, TROPI, DIME, PT, PTT ####[address] [place] [address] (cont.)[facility] Comment on above:Result Comment: Average GFR for 40-49 years old: 99 mL/min/1.73sq mChronic Kidney Disease: <60 mL/min/1.73sq mKidney failure: <15 mL/min/1.73sq meGFR calculated using average adult body mass. Additional eGFR calculator available at:http://www.[employer]/multiple_crcl_2012.htmPerformed By: #### CDP, BMP, BNP, TROPI, DIME, PT, PTT ####[address] , [place] [address]([facility])[phone] gap21 mmol/LHigh9-17[facility] HospitalComment on above:Performed By: #### CDP, BMP, BNP, TROPI, DIME, PT, PTT ####[address] , [place] [address]([facility])[phone]/CRE Ioghe56Atstim9-51Tocdl Tiffin HospitalComment on above:Performed By: #### CDP, BMP, BNP, TROPI, DIME, PT, PTT ####[address]T [place], [place] [address]([facility])[phone] mg/dLNormal8.6-10.4[facility] Comment on above:Performed By: #### CDP, BMP, BNP, TROPI, DIME, PT, PTT ####[address] , [place] [address] Luwousbw79 mmol/UYfj07-180Jajij Tiffin HospitalComment on above:Performed By: #### CDP, BMP, BNP, TROPI, DIME, PT, PTT ####[address] , [place] [address]([facility])[phone] mmol/LHkmkgz40-65KrjdcSt. Mary'S Medical Center, [facility] CampusComment on above:Performed By: #### CDP, BMP, BNP, TROPI, DIME, PT, PTT ####[address] , [place] [address] Creatinine0.62 mg/dLNormal0.50-0.90St. [facility] CampusComment on above: Performed By: #### CDP, BMP, BNP, TROPI, DIME, PT, PTT ####[address] , [place] [address]([facility])[phone] (non-black) mL/min/{1.73_m2}Normal>60St. [facility] CampusComment on above:Performed By: #### CDP, BMP, BNP, TROPI, DIME, PT, PTT ####[address] [place] [address] Potassium molar conc3.5 mmol/LLow 3.7-5.3MPremier HealthComment on above:Performed By: #### CDP, BMP, BNP, TROPI, DIME, PT, PTT ####[address] , [facility]83 Tpnbva680 mmol/GZothid028-068ZihodSt. Mary'S Medical Center, [place] CampusComment on above:Performed By: #### CDP, BMP, BNP, TROPI, DIME, PT, PTT ####[address] [address] Staging:NormalSt. Mary'S Medical Center, Iront[place] CampusComment on above:Result Comment: Stage 1: Some kidney damage normal GFRStage 2: Mild kidney damage GFR 60-89Stage 3:Moderate kidney damage GFR 30-59Stage 4: Severe kidney damage GFR 15-29Stage 5: Severe kidney damage GFR <15ESRD - chronic treatment by dialysis or transplantPerformed at [address] [place] [address] Performed By: #### CDP, BMP, BNP, TROPI, DIME, PT, PTT ####[address] [place] [address] Urea nitrogen9 mg/dL Normal6-20St. [facility] CampusComment on above:Performed By: #### CDP, BMP, BNP, TROPI, DIME, PT, PTT ####[address] [place] [phone] Hydroxybutyrateon 16-64-6137Ruke Hydroxybutyrate0.74 mmol/LHigh0.02-0.27St. [facility] CampusComment on above:Result Comment: Performed at [address] [place] [address] Performed By: #### CDP, BMP, BNP, TROPI, DIME, PT, PTT ####[address] [place] [address] CBCon 09-01-2017 Erythrocyte distribution width Auto Ratio (RBC)12.6 %Koembl04.8-14.4St[facility] CampusComment on above:Performed By: #### CDP, BMP, BNP, TROPI, DIME, PT, PTT ####[address] [place] [address] Erythrocytes (RBC)4.39 10*6/uLNormal3.95-5.11St. [facility] CampusComment on above:Performed By: #### CDP, BMP, BNP, TROPI, DIME, PT, PTT ####[address] [place] [address] Erythrocytes (RBC)0.0 per [address]BCNormal0[address]0St[address] [facility] CampusComment on above:Result Comment: Performed at [address] [id number] ([phone] Performed By: #### CDP, BMP, BNP, TROPI, DIME, PT, PTT ####[address] [place] [address] Hematocrit (HCT)39.2 % Fjihjm94.3-47.1MPremier HealthComment on above:Performed By: #### CDP, BMP, BNP, TROPI, DIME, PT, PTT ####[address] [place] [address] Hemoglobin mass conc (Bld)13.7 g/nAJqglxi33.9-15.1 [facility] CampusComment on above:Performed By: #### CDP, BMP, BNP, TROPI, DIME, PT, PTT ####[address] [place] [address] FJX76.2 miJwzpzg03.2-33.5St[facility] CampusComment on above:Performed By: #### CDP, BMP, BNP, TROPI, DIME, PT, PTT ####[address] , [place] [address] MCHC mass conc (RBC)34.9 g/oTYqkh93.4-34.8St. [facility] CampusComment on above:Performed By: #### CDP, BMP, BNP, TROPI, DIME, PT, PTT ####[address]T [place], [facility]83 YFL72.3 xRWigueh07.6-102.9[facility] Comment on above:Performed By: #### CDP, BMP, BNP, TROPI, DIME, PT, PTT ####[address] , [place] [address] Platelet mean volume (PMV)9.3 fLNormal8.1-13.5St. [facility] CampusComment on above:Performed By: #### CDP, BMP, BNP, TROPI, DIME, PT, PTT ####[address] , [place] [address] Znwkbzoxo023 10*3/uL Payryy839-392QkfljSt. Mary'S Medical Center, [place] CampusComment on above:Performed By: #### CDP, BMP, BNP, TROPI, DIME, PT, PTT ####[address] , [place] [address] WBC (Leukocytes)9.0 10*3/uLNormal3.5-11.3MPremier HealthComment on above:Performed By: #### CDP, BMP, BNP, TROPI, DIME, PT, PTT ####[address] , [facility]83 J-Cwzbc Teston 94-64-8902Y-Dimer Test0.23 mg/L FEUNormal0.19-0.50[facility] Comment on above:Result Comment: Elevated levels of [...] PE (negative predictive value of 98%).Performed at [address] [place] [address] Performed By: #### CDP, BMP, BNP, TROPI, DIME, PT, PTT ####[address] [facility]83 ED Provider Noteon [id number] IP Note OR TranscriptionNormalChildren'S Hospital Of Columbus HospitalLithiumon 58-39-9187Tchlyfo0.8 mmol/LNormal0.6-1.2[facility] HospitalComment on above: Result Comment: Performed at [address] [place] [address] Performed By: #### CDP, BMP, BNP, TROPI, DIME, PT, PTT ####[address] [place] [address] Date last dose,NOT REPORTEDNormalMercy Cleveland HospitalComment on above:Performed By: #### CDP, BMP, BNP, TROPI, DIME, PT, PTT ####[address] , [phone] amount,NOT REPORTEDNormalMercy Cleveland HospitalComment on above:Performed By: #### CDP, BMP, BNP, TROPI, DIME, PT, PTT ####[address] , [place] [phone] last dose,NOT REPORTEDNormalMercy Cleveland HospitalComment on above:Performed By: #### CDP, BMP, BNP, TROPI, DIME, PT, PTT ####[address] [facility]83 Magnesiumon 09-01-2017 Magnesium1.5 mg/dLLow1.6-2.6Mer[facility] HospitalComment on above:Result Comment: Performed at [address] [place] [address] Performed By: #### CDP, BMP, BNP, TROPI, DIME, PT, PTT ####[address] [place] [address] Troponinon 93-29-2488Utefdjis I.cardiac mass concNormalSt. Mary'[facility] Comment on above:Result Comment: Reference Range: <0.03 Within reference range. 0.03-0.09 Possible myocardial damage.Repeat at appropriate intervals to rule out chronic elevation. >= 0.10 Indicative of myocardial damage.Patients with high levels of Biotin oral intake (i.e >5mg/day) may have falsely decreased Troponin T levels. Samples collected within 8 hours of biotin intake may require additional information for diagnosis.Performed at [address] [place] [address] Performed By: #### CDP, BMP, BNP, TROPI, DIME, PT, PTT ####[address] [place] [address] Troponin T.cardiac mass concug/LNormal<0.03[facility] CampusComment on above:Result Comment: Troponin T results cannot be compared to Troponin-I results.Performed By: #### CDP, BMP, BNP, TROPI, DIME, PT, PTT ####[address] [place] [address] Urinalysis, Routineon 64-56-9502WifrkaqXMH REPORTEDNoOhio State University [facility] Center Comment on above:Performed By: #### CDP, BMP, BNP, TROPI, DIME, PT, PTT ####[address] [place] [address] Urinalysis,Microon 72-41-2903Rixilvrebl, RenalNOT HEOBPZMFAvrukm2Qcopx Cleveland HospitalComment on above:Performed By: #### CDP, BMP, BNP, TROPI, DIME, PT, PTT ####[address] [place] [address] Mucus StrandsNOT REPORTEDNormalNONEMercy Cleveland HospitalComment on above:Performed By: #### CDP, BMP, BNP, TROPI, DIME, PT, PTT ####[address] , [place] [address] Other ObservationsNOT REPORTEDNormal NREQMercy Cleveland HospitalComment on above:Performed By: #### CDP, BMP, BNP, TROPI, DIME, PT, PTT ####[address] [place] [address] TrichomonasNOT REPORTEDNormalNONEMercy Cleveland HospitalComment on above:Performed By: #### CDP, BMP, BNP, TROPI, DIME, PT, PTT ####[address] [place] [address] Urine, amorphous sediment presence in sedimentNOT REPORTEDNormalNONEMercy Cleveland HospitalComment on above:Performed By: #### CDP, BMP, BNP, TROPI, DIME, PT, PTT ####[address] , [facility]83 Urine, casts in sedimentNOT REPORTEDNormalMercy Cleveland HospitalComment on above:Performed By: #### CDP, BMP, BNP, TROPI, DIME, PT, PTT ####[address] , [place] [address] Urine, crystals in sedimentNOT REPORTED NormalNONEMercy Cleveland HospitalComment on above:Performed By: #### CDP, BMP, BNP, TROPI, DIME, PT, PTT ####[address] [place] [id number] Urine, yeast presence in sedimentNOT REPORTEDNormalNONEMercy Cleveland HospitalComment on above:Performed By: #### CDP, BMP, BNP, TROPI, DIME, PT, PTT ####[address] [place] [address] Venous Blood Gaseson 13-79-6644Dldfxpylwmj (HCO3)21.2 mmol/L Low24.0-30.0[facility] CampusComment on above:Performed By: #### CDP, BMP, BNP, TROPI, DIME, PT, PTT ####[address] , [facility]83 Body Temp.37.0NormalMerHospital for Special CareComment on above: Result Comment: Performed at [address] [place] [address] Performed By: #### CDP, BMP, BNP, TROPI, DIME, PT, PTT ####[address] , [facility]83 CO235.0 mmol/HRkz17-03XdyzjHospital for Special CareComment on above:Performed By: #### CDP, BMP, BNP, TROPI, DIME, PT, PTT ####[address] [place] [address] Negative Base Excess2.8 mmol/LHigh0.0-2.0[facility] CampusComment on above:Performed By: #### CDP, BMP, BNP, TROPI, DIME, PT, PTT ####[address] , [facility]83 O2 fmtzunuhjx64.0 %Fcmiam54.0-85.0[facility] CampusComment on above:Performed By: #### CDP, BMP, BNP, TROPI, DIME, PT, PTT ####[address] [place] [address] Oxygen in arterial blood34.6 mm[Hg]Iiziar90.0-50.0[facility] CampusComment on above: Performed By: #### CDP, BMP, BNP, TROPI, DIME, PT, PTT ####[address] [place] [address] pH of blood7.400 [pH] Normal7.32-7.42St. [facility] CampusComment on above:Performed By: #### CDP, BMP, BNP, TROPI, DIME, PT, PTT ####[address], [facility]83 Allen TestNOT REPORTEDNormalSt. Mary'[facility] Comment on above:Performed By: #### CDP, BMP, BNP, TROPI, DIME, PT, PTT ####[address] [place] [address] WB7XMI UYRBUPHCFnfmbj49.0-55.0[facility] CampusComment on above:Performed By: #### CDP, BMP, BNP, TROPI, DIME, PT, PTT ####[address] , [place] [address] [id number] REPORTEDNoOhio State University [facility] Medical Center Comment on above:Performed By: #### CDP, BMP, BNP, TROPI, DIME, PT, PTT ####[address] [place] [address] Hemoglobin mass conc (Bld)NOT UEWCIKKUJmmkzx30.0-98.0[facility] Comment on above:Performed By: #### CDP, BMP, BNP, TROPI, DIME, PT, PTT ####[address] , [place] [address] ModeNOT REPORTEDNormalSt. Mary'S Medical Center, [facility] CampusComment on above:Performed By: #### CDP, BMP, BNP, TROPI, DIME, PT, PTT ####[address] [place] [address] Notification TimeNOT REPORTEDNormUniversity Hospitals Geauga Medical CenterComment on above:Performed By: #### CDP, BMP, BNP, TROPI, DIME, PT, PTT ####[address] [place] [address] Notification:NOT REPORTEDNormalMerProMedica Bay Park Hospital HospitalComment on above:Performed By: #### CDP, BMP, BNP, TROPI, DIME, PT, PTT ####[address] [place] [address] O2 Device/Flow/%NOT REPORTEDNormalMerProMedica Bay Park Hospital HospitalComment on above:Performed By: #### CDP, BMP, BNP, TROPI, DIME, PT, PTT ####[address] [place] [address] PEEP/CPAPNOT REPORTEDNormalMerProMedica Bay Park Hospital HospitalComment on above:Performed By: #### CDP, BMP, BNP, TROPI, DIME, PT, PTT ####[address] , [place] [address]([facility])[phone] Adjst'd for Temp.NOT REPORTEDNormal7.320-7.420MerProMedica Bay Park Hospital HospitalComment on above:Performed By: #### CDP, BMP, BNP, TROPI, DIME, PT, PTT ####[address] [place] [address] tM3 Adj'd for Temp.NOT REPORTEDNormal 30.0-50.0[facility] HospitalComment on above:Performed By: #### CDP, BMP, BNP, TROPI, DIME, PT, PTT ####[address] [place] [address]([facility])[phone] Base ExcessNOT REPORTEDNormal0.0-2.0[facility] HospitalComment on above:Performed By: #### CDP, BMP, BNP, TROPI, DIME, PT, PTT ####[address] [place] [address] PSVNOT REPORTEDNormalMerProMedica Bay [facility] Hospital HospitalComment on above:Performed By: #### CDP, BMP, BNP, TROPI, DIME, PT, PTT ####[address] [place] [address] Pt. PositionNOT REPORTEDNormalMercy Cleveland HospitalComment on above:Performed By: #### CDP, BMP, BNP, TROPI, DIME, PT, PTT ####[address] [place] [address] Respiratory rateNOT REPORTEDNormalMercy Cleveland HospitalComment on above:Performed By: #### CDP, BMP, BNP, TROPI, DIME, PT, PTT ####[address] [place] [address] Set RateNOT REPORTEDNormalMercy Cleveland HospitalComment on above:Performed By: #### CDP, BMP, BNP, TROPI, DIME, PT, PTT ####[address] [place] [address]([facility])[phone] DrawnNOT REPORTED NormalMercy Cleveland HospitalComment on above:Performed By: #### CDP, BMP, BNP, TROPI, DIME, PT, PTT ####[address] [place] [address] Text for RespiratoryNOT REPORTEDNormalOhio State Health Systemcy [facility] Comment on above:Performed By: #### CDP, BMP, BNP, TROPI, DIME, PT, PTT ####[address] [place] [address] Total HbNOT HLCJAWNDNglgmc60.0-16.0Mercy Cleveland HospitalComment on above:Performed By: #### CDP, BMP, BNP, TROPI, DIME, PT, PTT ####[address] [place] [address] Total RateNOT REPORTEDNormalMercy Cleveland HospitalComment on above:Performed By: #### CDP, BMP, BNP, TROPI, DIME, PT, PTT ####[address] [place] [address] VTNOT REPORTEDNoOhio State University Wexner Medical CenterComment on above: Performed By: #### CDP, BMP, BNP, TROPI, DIME, PT, PTT ####[address] [place], [place] [id number] XR CHEST (2 VW)on [id number] CHEST (2 VW)FINAL REPORTEXAM: XR CHEST (2 VW)HISTORY: shortness of breath TECHNIQUE: Two-view chest PRIORS: None.FINDINGS: Lung marquez are clear. No consolidation, pleural effusion, or pneumothorax. Cardio mediastinal silhouette is unremarkable. Chest port and pacer noted. IMPRESSION: Impression: No acute disease. Interpreted by:LUIS Dykesigned by:Ko Lua MD09/01/17inal resultNoOhio State University Wexner Medical CenterPROGRESSon [id number] ID: [id number]: Ben MurphyheyService: (none)Author Type: PhysicianType: Progress NotesFiled: 07/17/2017 10:07 AMNote Text:Heart and Vascular InstituteRoblos alamos medical center and [place] Department of Cardiovascular MedicineOUTPATIENT VISIT DATE 07/17/17OUTPATIENT VISIT TYPENEWPRIMARY CARE PH YSICIAN:Cem Mario, BS[address] [facility] [address]Xgysr: [phone]: [phone] COMPLAINT:Patient presents with:Cardiac ClearanceHISTORY OF PRESENT ILLNESS:Addie Jean Baptiste is a 42 year old female with a 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 The patient is facingankle surgery in the near future. The patient is usually seen at [facility] cardiology practice. She states that she [...] follow-up checkup in the near future in [place]. The patient hasnot had any problems with [...] 251-300 = 6 units 301-350 = 8 aarhe948-662 = 10 unitsinsulin lispro (HUMALOG) 100 unit/mL [...] kg (196 lb) SpO2 96% BMI 35.85 kg/f9Zalrefp: Well appearing, in no acute distress.Eyes: Conjunctiva [...] There there is no evidence of previous [place].I have personally reviewed the above Cardiovascular Medicine [...] first checkup of recently changed generator at [facility].4. Controlled type 2 diabetes mellitus without [...] diet.Follow-up with her primary cardiology provider at [facility] aspreviously directed.A copy of this consultation note will be provided to the requestingphysician by way of shared medical record or to the requesting physicianvia U.S. Mail.This document was generated utilizing NextGreatPlaceon dictation. I have reviewedand verified that the jose luis nts of the document are accurate with theexception of minor grammatical, spelling and punctuation errors.CONTACT INFORMATION:Thank you for allowing us to participate in the care of this very pleasantpatient. Please free to contact us if we can be of any furtherassistance.Ben De Jesus MD, FACCRobert and Pretty ZeeDepartment of Cardiovascular MedicineCleveland Clinic Foundationrt and Vascular InstituteTerry Ville [address] [facility].[place], [place] [address]Vhplkm: [phone] NormalCTriHealth Bethesda North HospitalXR Lumbar Spine 2-3 Views (Standard)on [id number] Lumbar Spine 2-3 Views (Standard)No acute osseous abnormality. If symptoms persist, further evaluation with MRI would be recommended. [facility] Workstation ID: [id number] Interpretation CodeFUStreamline Alliance [facility] HOSPITALXR Lumbar Spine 2-3 Views (Standard) EXAMINATION: XR LUMBAR SPINE 2-3 VIEWS (STANDARD) HISTORY: ORDERING SYSTEM PROVIDED HISTORY: back pain, TECHNOLOGIST PROVIDED HISTORY: Reason for exam: Pt states she was at [facility] eating and then upon leaving went to [...] ra diographs 01/30/2014. FINDINGS: There are 5 evm-gjs-nhsmfdb lumbar-type vertebral bodies in anatomic alignment. Mineralization is within normal limits. No acute fracture or dislocation. The sacroiliac joint spaces are unremarkable. Surgical clips are seen within the right upper quadrant of the abdomen.Invalid Interpretation CodeEventKloud [facility]ER[facility] HOSPITALXR Lumbar Spine 2-3 Views (Standard) Interface, Rad In Pacs Powerscribe - 06/27/2017 12:48 AM EST EXAMINATION: XR LUMBAR SPINE 2-3 VIEWS(STANDARD) HISTORY: ORDERING SYSTEM PROVIDED HISTORY: back pain, TECHNOLOGIST PROVIDED HISTORY: Reason for exam: Pt states she was [facility] eating and then upon leaving went to [...] Lumbar radiographs 01/30/2014. FINDINGS: There are 5 fng-itl-ijchbxx lumbar-type vertebral bodies in anatomic alignment. Mineralization is within normal limits. No acute fracture or dislocation. The sacroiliac joint spaces are unremarkable. Surgical clips are seen within the right upper quadrant of the abdomen. IMPRESSION: No acute osseous abnormality. If symptoms persist, further evaluation with MRI would be recommended. [facility] Workstation ID: [id number] Invalid Interpretation CodeFUAMINATA Choozle [facility] HOSPITALXR Thoracic Spine 3 Views (Standard)on [id number] Thoracic Spine 3 Views (Standard)No acute bony abnormalities. [facility] [place] Workstation ID: [id number] Interpretation CodeFUPATIENT'S CHOICE MEDICAL CENTER OF SMITH COUNTYXR Thoracic Spine 3 Views (Standard)EXAMINATION: XR THORACIC SPINE 3 VIEWS (STANDARD) HISTORY: ORDERING SYSTEM PROVIDED HISTORY: back pain, TECHNOLOGIST PROVIDED HISTORY: Reason for exam: Pt states she was at [employer] eating and then upon leaving went to [...] no acute fractures or dislocations. Invalid Interpretation CodeTIPPAH COUNTY HOSPITAL Thoracic Spine 3 Views (Standard)Interface, Rad In Pacs Powerscribe - 06/26/2017 9:04 PM EST EXAMINATION: XR THORACIC SPINE 3 VIEWS (STANDARD) HISTORY: ORDERING SYSTEM PROVIDED HISTORY: back pain, TECHNOLOGIST PROVIDED HISTORY: Reason for exam: Pt states she was at [employer] eating and then upon leaving went to [...] or dislocations. IMPRESSION: No acute bony abnormalities. [employer] Workstation ID: [id number] Interpretation CodeFUJI SYNAPSE LINCOLN OHIOCult,Urineon [id number],UrineSpecimen Description .URINE Performed at [address] [place] [address] ([phone] Special Requests NOT REPORTEDCulture ESCHERICHIA COLI >[id number] CFU/ML Performed at [address] [address] ([phone] Report Status FINAL 02/17/2017SUSCEPTIBILITYOrganism ECMethod MICAmikacin NOT [...] REPORTEDTobramycin <=1 SUSCEPTIBLETrimethoprim/Sulfa >=320 RESISTANTPiperacillin/Tazobactam <=4 S USCEPTIBLENormalSt. Mary'S Medical Center, Ironton CampusComment on above:Performed By: #### CDP, BMP, BNP, TROPI, DIME, PT, PTT ####[address] [place] [address] APTTon [id number] sLow23.2-34.4St. [facility], Ironton CampusComment on above:Result Comment: Performed at [address] [place] [address] ([phone] By: #### CDP, BMP, BNP, TROPI, DIME, PT, PTT ####[address] , [place] [address] Basic Metabolic Profon 02-16-2017(cont.)Normal St[facility], Ironton CampusComment on above:Result Comment: Average GFR for 30-39 years old: 107 mL/min/1.73sq mChronic Kidney Disease: <60 mL/min/1.73sq mKidney failure: <15 mL/min/1.73sq meGFR calculated using average adult body mass. A dditional eGFR calculator available at:http://www.[employer]/multiple_crcl_2012.htmPerformed By: #### CDP, BMP, BNP, TROPI, DIME, PT, PTT ####[address] , [place] [address] Anion gap20 mmol/LHigh9-17St. [facility], Ironton CampusComment on above:Performed By: #### CDP, BMP, BNP, TROPI, DIME, PT, PTT ####[address] , [place] [address] BUN/CRE Xooak74Iknzew 9-20St. [facility], Iront[facility] CampusComment on above:Performed By: #### CDP, BMP, BNP, TROPI, DIME, PT, PTT ####[address] , [place] [address] Lmoedif0.7 mg/dLNormal8.6-10.4St. [facility]ont[facility] CampusComment on above:Performed By: #### CDP, BMP, BNP, TROPI, DIME, PT, PTT ####[address] , [place] [address] Ocqywoqf18 mmol/LLow 98-107St. [facility], Ironton CampusComment on above:Performed By: #### CDP, BMP, BNP, TROPI, DIME, PT, PTT ####[address] [place] [address] ZE114 mmol/HWnmfhp96-14YkrxdSt. Mary'S Medical Center, Ironton CampusComment on above: Performed By: #### CDP, BMP, BNP, TROPI, DIME, PT, PTT ####[address] , [place] [address] Embceczmyk3.71 mg/dL Normal0.50-0.90St. [facility], Iront[facility] CampusComment on above:Performed By: #### CDP, BMP, BNP, TROPI, DIME, PT, PTT ####[address], [place] [address] eGFR (non-black)mL/min/{1.73_m2}Normal>60St. [facility], Iront[facility] CampusComment on above:Performed By: #### CDP, BMP, BNP, TROPI, DIME, PT, PTT ####[address] , [place] [address] Glucose mass feun486 mg/vVTkgg89-06PciycPremier Health Comment on above:Performed By: #### CDP, BMP, BNP, TROPI, DIME, PT, PTT ####[address] , [place] [address] Potassium molar conc4.3 mmol/LNormal3.7-5.3MPremier HealthComment on above:Performed By: #### CDP, BMP, BNP, TROPI, DIME, PT, PTT ####[address] , [facility]83 Pmtbtm179 mmol/LLow 135-144St. [facility], Ironton CampusComment on above:Performed By: #### CDP, BMP, BNP, TROPI, DIME, PT, PTT ####[address] , [place] [address] Staging:NormalSt. Mary'S Medical Center, Ironton CampusComment on above:Result Comment: Stage 1: Some kidney damage normal GFRStage 2: Mild kidney damage GFR 60-89Stage 3:Moderate kidney damage GFR 30-59Stage 4: Severe kidney damage GFR 15-29Stage 5: Severe kidney damage GFR <15ESRD - chronic treatment by dialysis or transplantPerformed at [address] [place] [address] Performed By: #### CDP, BMP, BNP, TROPI, DIME, PT, PTT ####[address] [place] [address] Urea nitrogen8 mg/dLNormal6-20St. [facility], [facility] CampusComment on above:Performed By: #### CDP, BMP, BNP, TROPI, DIME, PT, PTT ####[address] [place] [address] Brain Natri. Peptideon 18-31-9944BVJ NormalSt. Mary'S Medical Center, Ironton CampusComment on above:Result Comment: Pro-BNP Reference Range:Rule Out: <300Grey Zone: Age <50 300-450 Age 50-75 300-900 Age >75 300- 1800Usually represents mild to moderate HF but other cardiopulmonary causes caroline ot be ruled out.Rule In: Age <50 >450 Age 50-75 >900 Age >75 >1800Performed at [address] [place] [address] Performed By: #### CDP, BMP, BNP, TROPI, DIME, PT, PTT ####[address] [place] [address] LMR721 pg/mLNormal<300 [facility], Iront[facility] CampusComment on above:Result Comment: Pro-BNP results cannot be compared to BNP results.Performed By: #### CDP, BMP, BNP, TROPI, DIME, PT, PTT ####[address] [place] [address] CBC with Diffon [id number]. Basophil0.00 k/uLNormal0.0-0.2MPremier Health Comment on above:Result Comment: Performed at [address] [place] [address] Performed By: #### CDP, BMP, BNP, TROPI, DIME, PT, PTT ####[address] [place] [address] Abs.Neutrophil (Seg)8.70 k/uLHigh1.8-7.7[facility] Comment on above:Performed By: #### CDP, BMP, BNP, TROPI, DIME, PT, PTT ####[address] [place] [address] Basophils/100 WBC Auto (Bld)0 %NormalSt. Mary'S Medical Center, Ironton CampusComment on above: Performed By: #### CDP, BMP, BNP, TROPI, DIME, PT, PTT ####[address] [place] [address] Vlyacsdaapa2.10 10*3/uL Normal0.0-0.4St. [facility], Iront[facility] CampusComment on above:Performed By: #### CDP, BMP, BNP, TROPI, DIME, PT, PTT ####[address] [place] [address] Eosinophils/100 leukocytes1 %[facility] Comment on above:Performed By: #### CDP, BMP, BNP, TROPI, DIME, PT, PTT ####[address] [place] [address] Erythrocyte distribution width Auto Ratio (RBC)11.9 %Low12.1-15.2MPremier HealthComment on above:Performed By: #### CDP, BMP, BNP, TROPI, DIME, PT, PTT ####[address] [place] [address] Erythrocytes (RBC)5.01 10*6/uLNormal4.0-5.2Mercy Cleveland HospitalComment on above:Performed By: #### CDP, BMP, BNP, TROPI, DIME, PT, PTT ####[address] [address] Hematocrit (HCT)45.2 % Sbhico45-54QmxnvSt. Mary'S Medical Center, Ironton CampusComment on above:Performed By: #### CDP, BMP, BNP, TROPI, DIME, PT, PTT ####[address] , [place] [address] Hemoglobin mass conc (Bld)15.5 g/fVKwpuhw82.0-16.0St[facility], [facility] CampusComment on above:Performed By: #### CDP, BMP, BNP, TROPI, DIME, PT, PTT ####[address] [place] [address] Idzxtfejfhs4.00 10*3/uLNormal1.0-4.8[facility] Comment on above:Performed By: #### CDP, BMP, BNP, TROPI, DIME, PT, PTT ####[address] , [place] [address] Lymphocytes/100 kyuitnddcy42 %NormalSt. Mary'S Medical Center, Ironton CampusComment on above: Performed By: #### CDP, BMP, BNP, TROPI, DIME, PT, PTT ####[address] , [place] [address] LGO74.[address]-82 [address] [facility], Iront[facility] CampusComment on above:Performed By: #### CDP, BMP, BNP, TROPI, DIME, PT, PTT ####[address] , [place] [address] MCHC mass conc (RBC)34.4 g/uVAnzkar99-11RkemeSt. Mary'S Medical Center, [facility] Campus Comment on above:Performed By: #### CDP, BMP, BNP, TROPI, DIME, PT, PTT ####[address] [place] [address] OBF16.4 gCUrsfzw65-260QzelnSt. Mary'S Medical Center, Iront[facility] CampusComment on above:Performed By: #### CDP, BMP, BNP, TROPI, DIME, PT, PTT ####[address], [place] [address] Haqvaxewh1.40 10*3/uLNormal0.2-0.8St. [facility] CampusComment on above:Performed By: #### CDP, BMP, BNP, TROPI, DIME, PT, PTT ####[address] , [place] [address] Monocytes/100 leukocytes4 %NormalSt. Mary'S Medical Center, Ironton CampusComment on above:Performed By: #### CDP, BMP, BNP, TROPI, DIME, PT, PTT ####[address] , [place] [address]([facility])[phone] (Seg)77 %NormalChildren'S Hospital Of Columbus HospitalComment on above:Performed By: #### CDP, BMP, BNP, TROPI, DIME, PT, PTT ####[address] [place] [address] Platelet mean volume (PMV)8.1 fLNormal6.0-12.0St. [facility] CampusComment on above:Performed By: #### CDP, BMP, BNP, TROPI, DIME, PT, PTT ####[address] [place] [address] Mlzcyfbyp501 10*3/uL Rlesxh213-037WidteSt. Mary'S Medical Center, Ironton CampusComment on above:Performed By: #### CDP, BMP, BNP, TROPI, DIME, PT, PTT ####[address] [place] [address] WBC (Leukocytes)11.2 10*3/uLHigh3.5-11.0[facility] Comment on above:Performed By: #### CDP, BMP, BNP, TROPI, DIME, PT, PTT ####[address] [place] [address]([facility])[phone] Diff PerformedNOT REPORTEDNormalSt. Mary'S Medical Center, [facility] CampusComment on above:Performed By: #### CDP, BMP, BNP, TROPI, DIME, PT, PTT ####[address] , [place] [address] Erythrocyte morphologyNOT REPORTED NormalSt. Mary'S Medical Center, Iront[facility] CampusComment on above:Performed By: #### CDP, BMP, BNP, TROPI, DIME, PT, PTT ####[address] , [place] [address] PlateletsNOT REPORTEDNormalChildren'S Hospital Of Columbus HospitalComment on above:Performed By: #### CDP, BMP, BNP, TROPI, DIME, PT, PTT ####[address] , [place] [address] WBC MorphologyNOT REPORTEDNoOhio State University Wexner Medical CenterComment on above:Performed By: #### CDP, BMP, BNP, TROPI, DIME, PT, PTT ####[address] , [place] [phone]-Taykw Teston 60-46-0646W-Dimer Test0.26 mg/L FEUNormal 0.19-0.50St. [facility] CampusComment on above:Result Comment: Elevated levels of D [...] PE (negative predictive value of 98%).Performed at [address] [place], [place] [address] [phone] By: #### CDP, BMP, BNP, TROPI, DIME, PT, PTT ####[address] , [place] [address] ED Noteon [id number] IP Note OR TranscriptionNormalMercy Cleveland HospitalHIM IP Note OR TranscriptionNormalMercy Cleveland HospitalHIM IP Note OR Semiautomatic Stitcher Operator NormalMercy Cleveland HospitalHIM IP Note OR TranscriptionNormalMercy Cleveland HospitalHIM IP Note OR TranscriptionNormalMercy Cleveland HospitalHIM IP Note OR TranscriptionNormalMercy Cleveland HospitalHIM IP Note OR TranscriptionNormalMercy Cleveland HospitalHIM IP Note OR TranscriptionNormalMercy Cleveland HospitalHIM IP Note OR TranscriptionNormalMercy Cleveland HospitalHIM IP Note OR Semiautomatic Stitcher Operator NormalMercy Cleveland HospitalHIM IP Note OR TranscriptionNormalMercy Cleveland HospitalED Provider Noteon [id number] IP Note OR TranscriptionNormalMercy Cleveland HospitalPTon 72-67-6790HTN Coag RelTime (PPP)0.9 {INR}Normal0.9-1.2MercMain Campus Medical Center HospitalComment on above:Result Comment: Performed at [address] [place] [address] ([phone] By: #### CDP, BMP, BNP, TROPI, DIME, PT, PTT ####[address] [place] [phone] time (PT) Coag time (PPP)9.7 sNormal 9.7-12.2MPremier HealthComment on above:Performed By: #### CDP, BMP, BNP, TROPI, DIME, PT, PTT ####[address] [place] [address] Troponinon 45-45-7930Yobdwbeu I.cardiac mass concGenesis HospitalComment on above:Result Comment: Reference Range: <0.03 Within reference range. 0.03-0.09 Possible myocardial damage.Repeat at appropriate intervals to rule out chronic elevation. >= 0.10 Indicative of myocardial damage.Performed at [address] [place] [address] Performed By: #### CDP, BMP, BNP, TROPI, DIME, PT, PTT ####[address] [place] [address] Troponin T.cardiac mass concug/LNormal<0.03St. [facility] CampusComment on above:Result Comment: Troponin T results cannot be compared to Troponin-I results.Performed By: #### CDP, BMP, BNP, TROPI, DIME, PT, PTT ####[address] [address] Troponin I.cardiac mass concNormalChildren'S Hospital Of Columbus HospitalComment on above:Result Comment: Reference Range: <0.03 Within reference range. 0.03-0.09 Possible myocardial damage.Repeat at appropriate intervals to rule out chronic elevation. >= 0.10 Indicative of myocardial damage.Performed at [address] [place] [address] [phone] By: #### CDP, BMP, BNP, TROPI, DIME, PT, PTT ####[address] , [place] [address] Troponin T.cardiac mass concug/LNormal<0.03St. [facility] CampusComment on above:Result Comment: Troponin T results cannot be compared to Troponin-I results.Performed By: #### CDP, BMP, BNP, TROPI, DIME, PT, PTT ####[address] , [place] [address] UA w/Reflex Cultureon [id number] mass conc1+AbnormalNEGChildren'S Hospital Of Columbus HospitalComment on above:Performed By: #### CDP, BMP, BNP, TROPI, DIME, PT, PTT ####[address] [place] [address] Bilirubin (direct) NegativeNormalNEGChildren'S Hospital Of Columbus HospitalComment on above:Performed By: #### CDP, BMP, BNP, TROPI, DIME, PT, PTT ####[address] [address] Hemoglobin mass conc (Bld)TRACEAbnormalNEGMercy Cleveland HospitalComment on above:Performed By: #### CDP, BMP, BNP, TROPI, DIME, PT, PTT ####[address] , [place] [address] Nitrite,UrPositiveAbnormalNEGMercy Cleveland HospitalComment on above:Performed By: #### CDP, BMP, BNP, TROPI, DIME, PT, PTT ####[address] , [place] [address] TurbiditySLIGHTLY CLOUDY AbnormalCLEARMercMain Campus Medical Center HospitalComment on above:Performed By: #### CDP, BMP, BNP, TROPI, DIME, PT, PTT ####[address] [place] [address] Urine, colorYELLOWNormalYELMercy Cleveland HospitalComment on above:Performed By: #### CDP, BMP, BNP, TROPI, DIME, PT, PTT ####[address] [place] [address] Urine, glucose presence 3+AbnormalNEGChildren'S Hospital Of Columbus HospitalComment on above:Performed By: #### CDP, BMP, BNP, TROPI, DIME, PT, PTT ####[address] [place] [address] Urine, leukocyte esterase presenceTRACEAbnormalNEGChildren'S Hospital Of Columbus HospitalComment on above:Result Comment: Performed at [address] [place], [facility]83 Performed By: #### CDP, BMP, BNP, TROPI, DIME, PT, PTT ####[address] [place] [address] Urine, pH7.0 [pH]Normal5.0-9.0Children[facility] HospitalComment on above:Performed By: #### CDP, BMP, BNP, TROPI, DIME, PT, PTT ####[address] [place] [address] Urine, protein presenceNegativeNormalNEGChildren'S Hospital Of Columbus HospitalComment on above:Performed By: #### CDP, BMP, BNP, TROPI, DIME, PT, PTT ####[address] [place] [address] Urine, specific gravity1.010Normal 1.010-1.020Children'[facility] HospitalComment on above:Performed By: #### CDP, BMP, BNP, TROPI, DIME, PT, PTT ####[address] [place] [address] Urobilinogen,UrNormalNormalNORMSt. Mary'S Medical Center, [facility] CampusComment on above:Performed By: #### CDP, BMP, BNP, TROPI, DIME, PT, PTT ####[address] [place] [address] CommentNOT REPORTED NormalSt. Mary'S Medical Center, Iront[facility] CampusComment on above:Performed By: #### CDP, BMP, BNP, TROPI, DIME, PT, PTT ####[address] [place] [address] Urinalysis,Microon 02-16-2017-----NormalSt. Mary'S [facility] Comment on above:Performed By: #### CDP, BMP, BNP, TROPI, DIME, PT, PTT ####[address] [place] [address] Urine WBC's10 TO 14Npcwia4-2QfaakSt. Mary'S Medical Center, [facility] CampusComment on above:Performed By: #### CDP, BMP, BNP, TROPI, DIME, PT, PTT ####[address] [place] [address] Urine, bacteria in sediment3+AbnormalNONEMercBackus HospitalComment on above:Result Comment: Performed at [address] [place] [address] Performed By: #### CDP, BMP, BNP, TROPI, DIME, PT, PTT ####[address] [place] [address] Urine, epithelial cells in sediment2 TO 5Normal 0-25Mer[facility] HospitalComment on above:Performed By: #### CDP, BMP, BNP, TROPI, DIME, PT, PTT ####[address] [place] [address] Urine, erythrocytes0 TO 7Xcrgkh2-1Mkfek Cleveland HospitalComment on above:Performed By: #### CDP, BMP, BNP, TROPI, DIME, PT, PTT ####[address] [place] [address] Epithelial, Renal NOT IPVSSDMAAjigio3Hlceh Cleveland HospitalComment on above:Performed By: #### CDP, BMP, BNP, TROPI, DIME, PT, PTT ####[address] [place] [address] Mucus StrandsNOT REPORTEDNormalNONEMercy Cleveland HospitalComment on above:Performed By: #### CDP, BMP, BNP, TROPI, DIME, PT, PTT ####[address] [place] [address] Other ObservationsNOT REPORTEDNormalNREQMercy Cleveland HospitalComment on above: Performed By: #### CDP, BMP, BNP, TROPI, DIME, PT, PTT ####[address] [place] [address] TrichomonasNOT REPORTED NormalNONEMercy Cleveland HospitalComment on above:Performed By: #### CDP, BMP, BNP, TROPI, DIME, PT, PTT ####[address] [place] [address] Urine, amorphous sediment presence in sedimentNOT REPORTED NormalNONEMercy Cleveland HospitalComment on above:Performed By: #### CDP, BMP, BNP, TROPI, DIME, PT, PTT ####[address] [place] [address]([phone], casts in sedimentNOT REPORTEDNoMetroHealth Cleveland Heights Medical Center HospitalComment on above:Performed By: #### CDP, BMP, BNP, TROPI, DIME, PT, PTT ####[address] [place] [address] Urine, crystals in sedimentNOT REPORTEDNoNemours Children's Hospital, [facility] HospitalComment on above: Performed By: #### CDP, BMP, BNP, TROPI, DIME, PT, PTT ####[address] [place] [phone], yeast presence in sedimentNOT REPORTEDBeebe Healthcare HospitalComment on above:Performed By: #### CDP, BMP, BNP, TROPI, DIME, PT, PTT ####[address] [place] [address] XR CHEST PORTABLEon [id number] CHEST PORTABLEREPORT: Chest PA and lateralINDICATION: Chest painFINDINGS: The lungs are well expanded and clear bilaterally. No focal consolidation, pleural effusion or pneumothorax seen. Normal cardiac and mediastinal silhouettes. No free intraperitoneal air. Left-sided pacemaker in place. Right-sided Port-A-Cath in good position.Final report electronically signed by Stephany Villafana on 02/16/2017 10:40 AMIMPRESSION: Normal chestInterpreted by:LUIS Migueligned by:Stephany Villafana MD02/16/17Final resultNormUniversity Hospitals Geauga Medical CenterLaboratory Studieson [id number] Drug Screen (T)[facility] Comment on above: TOXASSURE COMP DRUG [...] consultation, please call . Urine Drug Screen Interpretation.[facility]trComment on above:See report. Scanned copy available in EMR. Performed at: [facility] [address] [id number] [employer] Operator: Laura Damon MD, Phone: [phone] Vital Signs Date TimeVital SignValuePerforming ThbmslpcuXwhnggae76-59-7256 10:57-0500Body rbieln502.48 cmMitchell Rice DO Work Phone: [phone] [place], [place] [address]1911-11-2025 10:57-0500 Body mass index (BMI) [Ratio]49.7 kg/a5Poxbinmu Rice DO Work Phone: [phone] [place], [place] [address]-11-2025 10:57-0500 Body yajscdqliyq68.8 [degF]Andrés Rice DO Work Phone: 1(890)[address] [place], [place] [address]-11-2025 10:57-0500 Body htpihk249.37 kgMitchell Rice DO Work Phone: 1(805)[address] [place], [place] [address]-11-2025 10:57-0500 Diastolic blood icfftjqr31 mm[Hg]Andrés Rice DO Work Phone: 1(497)[address] [place], [place] [address]-11-2025 10:57-0500 Heart rate81 /minMitchell Rice DO Work Phone: 1(586)[address] [place], [place] [address]-11-2025 10:57-0500 Respiratory rate18 /minMitchell Rice DO Work Phone: 1(394)[address] [place], [place] [address]-11-2025 10:57-0500 SaO2% (BldA) [Mass fraction]99 %Andrés Rice DO Work Phone: 1(985)[address] [place], [place] [address]-11-2025 10:57-0500 Systolic blood mhjzojfl362 mm[Hg]Andrés Rice DO Work Phone: 1(880)[address] [place], [place] [address]10-02-2025 13:51-0400 Body yvuqtr804.5 cmJustin Lavonne [facility] Work Phone: 1(560) [phone]601VvlkXaxgdg70-12-5753 13:51-0400Body mass index (BMI) [Ratio]51.21 kg/t6Btvczj Lavonne [facility] Work Phone: 1(213) [phone]-495384NrnbYomqzq81-11-6400 13:51-0400Body .01 kg Mihai Lavonne [facility] Work Phone: FuviHhzgkw28-692132LkrvIwbbck90-75-1027 13:51-0400Diastolic blood mm[Hg]Mihai Lavonne [facility] Work Phone: UllwUnxmoi06-397589AgcrBunwgp57-94-3858 13:51-0400Heart rate92 /minJustin Lavonne [facility] Work Phone: 1(483) [phone]-299276IxijChzfhq56-35-2160 13:51-0400Systolic blood pressure 133 mm[Hg]Mihai Lavonne [facility] Work Phone: DlvaSusxpl53-797297XuobMaxneb56-58-2737 09:58-0400Body btjuiq535.48 cm Andrés Rice DO Work Phone: 1(614)2-[address] [place], [place] [address]09-29-2025 09:58-0400 Body mass index (BMI) [Ratio]50.3 kg/d9Lvbpnbeq Rice DO Work Phone: 1(712)[address]09-29-2025 09:58-0400 Body lvfduydhrfh06.4 [degF]Andrés Rice DO Work Phone: 1(712)6-[address] [place], [place] 6062909-29-2025 09:58-0400 Body .87 kgMitchell Rice DO Work Phone: 1(860)9-[address] [place], [place] [address]09-29-2025 09:58-0400 Diastolic blood mm[Hg]Andrés Rice DO Work Phone: 1(022)1-[facility]09-29-2025 09:58-0400 Heart rate90 /minMitchell Rice DO Work Phone: [facility]09-29-2025 09:58-0400 Respiratory rate18 /minMitchell Rice DO Work Phone: 1(279)2-[address] [place], [place] 606[address]09-29-2025 09:58-0400 SaO2% (BldA) [Mass fraction]98 %Andrés Rice DO Work Phone: 1(125)1-[address] [place], [place] [address]-29-2025 09:58-0400 Systolic blood gnzvudiq227 mm[Hg]Andrés Rice DO Work Phone: 1(162)[address]09-11-2025 10:47-0400 Body udozgv336.5 Alison Resendez MD Work Phone: 1(847)838-[address] [place], [place] [address]Kgvrkbbuvf30-84-4166 10:47-0400Body mass index (BMI) [Ratio]49.38 kg/a2JicbsSergio Resendez MD Work Phone: 1(888)[address] [place], [place] [address]Hzvbihxzfb44-13-8952 10:47-0400Body qwikxd069.47 kgSergio Resendez MD Work Phone: 1(874)[address] [place], [place] [address]Evodtuhwjg63-60-2639 10:47-0400Diastolic blood rxtdfiph63 mm[Hg]Sergio Resendez MD Work Phone: 1(545)[address] [place], [place] [address]Wfycfliqcm19-38-5257 10:47-0400Heart rate78 /min Sergio Resendez MD Work Phone: 1(304)[address] [place], [place] [address]Rsohyaosbl83-56-3813 10:47-0400Respiratory rate18 /minSergio Resendez MD Work Phone: 1(973)[address] [place], [place] [address]Hlfarrcoiu10-13-9783 10:47-8948JtY1% (BldA) [Mass fraction]99 %Sergio Resendez MD Work Phone: [address] [place], [place] [address]Tgrtxpnbqy36-59-2726 10:47-0400Systolic blood mevfraow163 mm[Hg]Sergio Resendez MD Work Phone: 1(170)261-[address] [place], [place] [address]Dpxfebkffu70-35-2832 12:15-0400Body temperature 98.71 [degF]Elda Aguirre MD Work Phone: [facility] Ddzcrm20-72-7382 12:15-0400Diastolic blood cvuelsbe62 mm[Hg]Elda Aguirre MD Work Phone: [facility] Guouhy81-43-0324 12:15-0400Heart rate 82 /minElda Aguirre MD Work Phone: [facility] CenterMySupportAssistant07-14-2025 12:15-0400 Respiratory rate14 /minElda Aguirre MD Work Phone: [facility] Xpwsqn13-65-0520 12:15-0400Systolic blood hgodyobm753 mm[Hg]Elda Aguirre MD Work Phone: [facility] Ajkncy30-70-1541 08:12-6012SoJ3% (BldA) [Mass fraction]94 %Elda Aguirre MD Work Phone: [facility] Vopybd12-55-3781 00:15-0400Body .5 cmElda Aguirre MD Work Phone: [facility] Ylyxuo59-85-7558 00:15-0400Body mass index (BMI) [Ratio]44.91 kg/v1FubmrbfElda Aguirre MD Work Phone: [facility] Jlrlvw29-41-2153 00:15-0400Body livjzc833.4 kgElda Aguirre MD Work Phone: [facility] Ygkqbi49-69-1548 10:55-0400Diastolic blood unzohbqm38 mm[Hg]Jim Velez DO Work Phone: 1(147) [phone]35FzrsLnexqv45-58-7648 10:55-0400Heart lfnu526 /min Jim Velez DO Work Phone: 1(131) [phone]-955636NndaItovry43-75-7171 10:55-8209DyY1% (BldA) [Mass fraction]98 %Jim Velez DO Work Phone: 1(377) [phone]x60-751428SofjWfxxcl09-94-2407 10:55-0400Systolic blood pressure 121 mm[Hg]Jim Velez DO Work Phone: oh478-4456ToneRspply87-067266AwuzJeqzzw65-70-2428 13:49-0400Body kzgnym386.48 cmNo [facility] Work Phone: 1(916) 119-695304-07-2025 13:49-0400Body mass index (BMI) [Ratio]51.2 kg/m2No [facility] Work Phone: 1(734) 853-936904-07-2025 13:49-0400Body czobmjrtjrj64.6 [degF]No [facility] Work Phone: 1(901) 987-695704-07-2025 13:49-0400Body ovrxsa520.01 kgNo [facility] Work Phone: 1(122) 479-488804-07-2025 13:49-0400Diastolic blood mm[Hg] No [facility] Work Phone: 1(112) 649-187804-07-2025 13:49-0400Heart rate94 /[facility] Work Phone: 1(789) 529-727604-07-2025 13:49-0400Respiratory rate16 /min[facility] Work Phone: 1(446) 449-484304-07-2025 13:49-0203SnR1% (BldA) [Mass fraction]99 % No [facility] Work Phone: 1(489) 230-323604-07-2025 13:49-0400Systolic blood tkdruvkr058 mm[Hg] No [facility] Work Phone: 1(256) 949-983203-11-2025 15:13-0400Diastolic blood bltykmey83 mm[Hg] Stephany RUBALCAVA-C Work Phone: oh944-8058LxveWkvkgp01-112884RgsmAmqxqx24-46-7991 15:13-0400Systolic blood pressure 122 mm[Hg]Stephany RUBALCAVA-C Work Phone: oh591-8246XytyQmddni10-049828CgisUpuprt93-70-6781 14:25-0400Body cugpwm243.5 cm Stephany RUBALCAVA-C Work Phone: 1(722) [phone]-217966NobgKiaqpr36-81-3365 14:25-0400Heart rate88 /minStephany Pelayo PA-C Work Phone: 1(122) [phone]e62-763210PzorJpkxya93-31-9662 14:25-5235OdJ5% (BldA) [Mass fraction]95 %Stephany Pelayo PA-C Work Phone: 1(336) [phone]-134269VinsTbtsvz97-56-7063 10:57-0500Body ecgskt176.5 cm Stephany Pelayo PA-C Work Phone: 1(277) [phone]e37-358544DhbfFozkak07-49-6582 10:57-0500Diastolic blood mm[Hg]Stephany Pelayo PA-C Work Phone: 1(843) 265-9489092-6566XktsWsgmil87-949151EvldYundma80-93-7688 10:57-0500Heart rate87 /minStephany Pelayo PA-C Work Phone: 1(300) [phone]2-761203ThesAwbbft05-91-5930 10:57-4512ZeI4% (BldA) [Mass fraction]98 %Stephany Pelayo PA-C Work Phone: 1(879) [phone]-600134MnkfSyztno69-47-8140 10:57-0500Systolic blood pressure 116 mm[Hg]Stephany Pelayo PA-C Work Phone: 1(522) [phone]-651719UhauOtjjvs33-96-7512 08:26-0500Body .5 cmSoto Dolce DPM FACFAS Work Phone: [facility]Vbkpjpsoif26-11-0573 08:26-0500Body mass index (BMI) [Ratio]42.62 kg/m2Marc Dolce DPM FACFAS Work Phone: [facility] HospitalKzjdutlmws64-10-3873 08:26-0500Body lrseof739.69 kgMarc Dolce DPM FACFAS Work Phone: [facility] HospitalJcsddrnwel58-82-4158 08:26-0500Diastolic blood iwipikoe59 mm[Hg]Soto Box DPM FACFAS Work Phone: [facility] HospitalIbwgagbnfq75-46-3962 08:26-0500Heart rate77 /min Soto Box DPM FACFAS Work Phone: [facility] HospitalChoswzgdca75-57-2896 08:26-0500Systolic blood jcvaksak123 mm[Hg]Soto Box DPJoel FACFAS Work Phone: [facility] HospitalChpmwchtnw26-52-8797 08:32-0500Body zfnozc908.5 cmJunemesio Elizalde CNP Work Phone: 1(619) [phone]-611724SkkbPzwrzh98-97-7062 08:32-0500Body mass index (BMI) [Ratio]51.32 kg/h8Luxbpgnemesio Elizalde CNP Work Phone: 1(551) [phone]-557107VsupNifbtr48-26-3866 08:32-0500Body .28 kg Mihai Elizalde CNP Work Phone: 1(429) [phone]-011495WrsdLmkwfb94-17-0748 08:32-0500Diastolic blood bdmrektv596 mm[Hg]Mihai Elizalde CNP Work Phone: 1(628) [phone]-975359UgrnDqkalg44-07-2025 08:32-0500Heart rate90 /minJunemesio Elizalde CNP Work Phone: 1(674) [phone]2-399440QlhePhkkfq83-83-9718 08:32-0500Systolic blood pressure 173 mm[Hg]Mihai Elizalde CNP Work Phone: 1(589) [phone]c37-375221HvksDrindy23-53-0964 13:41-0500Respiratory rate16 /min Ali Kamille DO Work Phone: 1(290) [phone]-506934ZxjgOgjcqa58-07-9548 11:37-0500Body kfcypkcnupd24.5 [degF]Ali Kamille DO Work Phone: 1(430) [phone]-681673GjroSfzfdt50-25-8704 11:37-0500Diastolic blood ifomgzmk46 mm[Hg]Ali Kamille DO Work Phone: 1(571) [phone]-535483SbyuGyfdto28-03-9207 11:37-0500Heart rate78 /minAli Kamille DO Work Phone: 1(918) [phone]-763894HbrkLdvzjl84-44-1142 11:37-0271OiX0% (BldA) [Mass fraction]98 %Ali Kamille DO Work Phone: 1(978) [phone]-890476NdwaMgmvll60-70-6955 11:37-0500Systolic blood pressure 114 mm[Hg]Malcolm Fabianmi DO Work Phone: 1(689) [phone]-870702PsbsXunqko88-40-8181 03:00-0500Body mass index (BMI) [Ratio]51.73 kg/m2Ali Kamille DO Work Phone: 1(512) [phone]-968005IytbFxnird07-10-8890 03:00-0500Body .3 kgAli Kamille DO Work Phone: 1(679) [phone]-203381HwmpPqigta05-85-5728 01:27-0500Body ehuchg752.5 cmAli Kamille DO Work Phone: 1(793) [phone]-513406IoomSogrhq73-77-7204 15:44-0500Diastolic blood ghnyfmvr24 mm[Hg]Ruthy Dong MD Work Phone: 1(393) [phone]-849617EobsQkkwxg85-81-6584 15:44-0500Heart rate66 /minRuthy Dong MD Work Phone: 1(116) [phone]x62-226886XhzqOlsjmg53-22-9195 15:44-0500Respiratory rate18 /min Ruthy Dong MD Work Phone: 1(415) [phone]-507688RfteJpskas17-70-5855 15:44-1305RcR8% (BldA) [Mass fraction]94 %Ruthy Dong MD Work Phone: 1(603) [phone]19SnmdXyrsyh04-94-5567 15:44-0500Systolic blood pressure 149 mm[Hg]Ruthy Dong MD Work Phone: 1(611) [phone]628YximEijtcd49-12-9960 11:24-0500Body rdekmbmjytx35.81 [degF]Ruthy Dong MD Work Phone: 1(112) [phone]90ZaahZanfhp69-79-9952 04:29-0500Body mass index (BMI) [Ratio]49.84 kg/m2Ruthy Dong MD Work Phone: 1(441) [phone]-400287FxdmDduavu84-46-6743 04:29-0500Body ywndiz770.6 kgRuthy Dong MD Work Phone: 1(298) [phone]-782016UcifAhjnmc87-05-2194 01:58-0400Body tjuprn173.5 Elvi Dong MD Work Phone: 1(684) [phone]-718344BmnbBplydi46-28-8575 11:23-0400Diastolic blood vjfamudm61 mm[Hg]Stephany Morales PA-C Work Phone: 1(276) [phone]UwnkEuzjoe00-44-3559 11:23-0400Systolic blood pressure 142 mm[Hg]Stephany McCague PA-C Work Phone: 1(996) [phone]14278KghaBxfvfp98-10-6590 10:41-0400Body vuobmw373.5 cm Stephany McCmanuela PA-C Work Phone: 1(277) [phone]9-116187OlxeHtyrmv67-85-5281 10:41-0400Heart kbuh877 /minLaura McCague PA-C Work Phone: 1(978) [phone]-597632VejqKafnad14-17-9643 10:41-0049FxY7% (BldA) [Mass fraction]98 %Stephany Walkerague PA-C Work Phone: 1(144) [phone]-171392UvbkMkgija91-58-9019 11:41-0400Diastolic blood obaexsiy686 mm[Hg]Stephany Walkerague PA-C Work Phone: 1(414) [phone]55IdmwNwoajv66-82-5906 11:41-0400Systolic blood pressure 193 mm[Hg]Stephany McCmanuela PA-C Work Phone: 1(129) [phone]-567396YdcdDpfnrq59-83-1953 11:03-0400Body .5 cm Stephany McCmanuela PA-C Work Phone: 1(890) [phone]777NhnyOnpasj55-73-9596 11:03-0400Heart rate89 /minLaura McCague PA-C Work Phone: 1(178) [phone]PbjhVzyvai08-41-9031 11:03-6278EkA1% (BldA) [Mass fraction]97 %Stephany McCmanuela PA-C Work Phone: 1(496) [phone]65693ZkckEuhkpt09-80-2310 16:04-0400Body mass index (BMI) [Ratio]51.21 kg/p8EpdwyaayhJim Velez DO Work Phone: 1(834) [phone]-034232FtusNjqqrw03-29-4843 16:04-0400Body ufgoii033.01 kg Jim Velez DO Work Phone: 1(455) [phone]-441203EplpLwmxid09-10-4323 16:04-0400Diastolic blood qrmxuiza953 mm[Hg]Jim Velez DO Work Phone: 1(998) [phone]832VyidUrwdny70-39-6454 16:04-0400Heart rate96 /min Jim Velez DO Work Phone: 1(829) [phone]nphIsxxlx51-68-9547 16:04-0400Respiratory rate18 /min Jim Velez DO Work Phone: 1(799) [phone]-137882UjwgUnjymf52-83-6184 16:04-0949SaS4% (BldA) [Mass fraction]96 %Jim Velez DO Work Phone: 1(825) [phone]-463765XwqiOxwdqt86-96-6214 16:04-0400Systolic blood pressure 181 mm[Hg]Jim Velez DO Work Phone: 1(565) [phone]-194090KfjtKocgfi97-76-6414 13:36-0400Body jolsmb563.5 cm Rafaela Medrano CNP Work Phone: [facility]Comment on above:per la30-46-8762 13:36-0400 Body mass index (BMI) [Ratio]51.03 kg/q6NjwgejiRafaela Ventural [facility] Work Phone: 1(281) [phone]732VenqLlogxk98-66-5960 13:36-0400Body .55 kg Rafaela Medrano [facility] Work Phone: 1(629) [phone]whyMocezv34-63-4532 13:36-0400Diastolic blood ppojfezv60 mm[Hg]Rafaela Ventural [facility] Work Phone: 1(646) [phone]-410313DpwvUetxhx99-78-1646 13:36-0400Heart rate90 /min Rafaela Ventural [facility] Work Phone: 1(545) [phone]-827917XrbaWaghqp63-57-9636 13:36-9998RiK9% (BldA) [Mass fraction]94 %Rafaela Medrano [facility] Work Phone: 1(908) [phone]96125SyxaGgjeug44-72-0628 13:36-0400Systolic blood pressure 139 mm[Hg]Rafaela Medrano [facility] Work Phone: 1(378) [phone]-718814UervMnrlvb51-75-8118 08:56-0400Respiratory rate16 /min Harshad Rizzo MD Work Phone: 1(571) [phone]-306010KmfqPqiqar59-32-2800 08:18-0400Body lcjipefodfb47.7 [degF]Harshad Rizzo MD Work Phone: KqyyCvhztm61-128145KuycDnshxy23-36-0800 08:18-0400Diastolic blood ftblxirs72 mm[Hg]Harshad Rizzo MD Work Phone: 1(436) [phone]-299847NyqrIklypj86-49-3958 08:18-0400Heart rate65 /Mariely Rizzo MD Work Phone: 1(426) [phone]-195304FgedWvmkrs58-84-4799 08:18-0400Systolic blood pressure 140 mm[Hg]Harshda Rizzo MD Work Phone: 1(310) [phone]-403367RjfeAtdisi84-17-2095 02:58-0400Body mass index (BMI) [Ratio]52.62 kg/m2Harshad Rizzo MD Work Phone: 1(564) [phone]494MitpQxjcav02-52-2082 02:58-0400Body ridbdd303.5 kgHarshad Rizzo MD Work Phone: 1(344) [phone]-598757XdsuNjkfgp26-23-6938 02:58-6408RsE4% (BldA) [Mass fraction]94 %Harshad Rizzo MD Work Phone: SyegKszbxs50-839696XgavMutgji08-91-9551 14:36-0400Body iotzbo609.5 Jose Rizzo MD Work Phone: 1(726) [phone]-593659OxveAywddr18-44-3952 13:59-0400Diastolic blood wmaqkggh73 mm[Hg]Stephany Pelayo PA-C Work Phone: 1(928) [phone]05RzkmPnbvpx15-91-3007 13:59-0400Systolic blood pressure 139 mm[Hg]Stephany Pelayo PA-C Work Phone: 1(793) [phone]-968503AthsLhqeov93-47-0034 13:38-0400Body mirsbz513.5 cm Stephany Walkermanuela PA-C Work Phone: 1(253) [phone]-051729JnkcDrhujt19-51-9755 13:38-0400Heart rate96 /minStephany Walkermanuela PA-C Work Phone: 1(241) [phone]-263279BuuoResacn36-91-8766 13:38-2856UzF3% (BldA) [Mass fraction]95 %Stephany Walkermanuela PA-C Work Phone: oh431-4767AjqfLgebrs55-888581JkqlBxapza41-80-0836 13:53-0400Body mass index (BMI) [Ratio]47.55 kg/e6EvtslrxdyJim Velez DO Work Phone: 1(356) [phone]-883258BelrCcbjkv32-89-0017 13:53-0400Body cxwihi247.94 kg Jim Velez DO Work Phone: 1(482) [phone]-333491FdpbAxeels59-11-6193 13:53-0400Diastolic blood gvjrueja620 mm[Hg]Jim Velez DO Work Phone: 1(960) [phone]-576653JobpKrvyib51-54-6902 13:53-0400Heart rate91 /min Jim Velez DO Work Phone: 1(905) [phone]-955256FjkzRwoark29-55-4322 13:53-0400Respiratory rate18 /min Jim Velez DO Work Phone: 1(281) [phone]-758250QqmxJclgdq78-67-0914 13:53-1286VgX6% (BldA) [Mass fraction]93 %Jim Velez DO Work Phone: 1(253) [phone]-552466XsamWnrnwu10-36-5459 13:53-0400Systolic blood pressure 166 mm[Hg]Jim Velez DO Work Phone: 1(634) [phone]iepvl02-02-7204 13:53-0400Body gsnylg482.5 cm Sahara Sanchez MD Work Phone: 1(584) [phone]gwnjn49-32-7188 13:53-0400Body mass index (BMI) [Ratio]49.93 kg/p1UmpssllSahara Sanchez MD Work Phone: 1(863) [phone]llxnh66-67-7928 13:53-0400Body ubdpsz273.83 kg Sahara Sanchez MD Work Phone: 1(668) [phone]eNqxchh08-21-6964 13:53-0400Diastolic blood elozcsri43 mm[Hg]Sahara Sanchez MD Work Phone: 1(448) [phone]dviSnhfjp65-76-4921 13:53-0400Heart rate92 /min Sahara Sanchez MD Work Phone: 1(912) [phone]sicpd42-49-5025 13:53-0400Respiratory rate16 /min Sahara Sanchez MD Work Phone: 1(400) [phone]BlsyXzmoue54-02-4919 13:53-0400Systolic blood pressure 153 mm[Hg]Sahara Sanchez MD Work Phone: 1(381) [phone]ejslf50-71-1076 15:34-0400Body zpkfxu016.5 cm Stephany Pelayo PA-C Work Phone: 1(765) [phone]batnz89-45-1259 15:34-0400Body .01 [degF]Stephany Pelayo PA-C Work Phone: 1(522) [phone]usdkd16-65-6997 15:34-0400Diastolic blood ifedkvmm28 mm[Hg]Stephany Pelayo PA-C Work Phone: 1(837) [phone]hkbZnosor04-94-0551 15:34-0400Heart tbhl811 /minStephany Pelaoy PA-C Work Phone: 1(197) [phone]rWjpcfw10-09-1217 15:34-8219AxB1% (BldA) [Mass fraction]98 %Stephany Pelayo PA-C Work Phone: 1(158) [phone]uMwvywh45-11-6751 15:34-0400Systolic blood pressure 131 mm[Hg]Stephany Pelayo PA-C Work Phone: 1(284) [phone]yzGxiaya72-51-9159 15:47-0400Diastolic blood lihuktqz31 mm[Hg]Anders London MD Work Phone: [facility]06-17-2024 15:47-0400Heart rate90 /Arden London MD Work Phone: [facility]06-17-2024 15:47-0400Systolic blood mjcwrufi364 mm[Hg]Anders London MD Work Phone: [phone]([phone]05-21-2024 11:49-0400 Diastolic blood hossdxal352 mm[Hg]Stephany Pelayo PA-C Work Phone: 1(563) [phone]uDlgjjf44-02-9647 11:49-0400Systolic blood pressure 169 mm[Hg]Stephany Pelayo PA-C Work Phone: 1(870) [phone]qslHteygu52-64-2937 11:24-0400Body gyhigqbtsdi32 [degF]Stephany Pelayo PA-C Work Phone: 1(584) [phone]ysrfs27-66-4788 11:24-0400Heart rate93 /minStephany Pelayo PA-C Work Phone: 1(674) [phone]VxlcTslawa53-23-5515 11:24-9573InC3% (BldA) [Mass fraction]95 %Stephany Pelayo PA-C Work Phone: 1(286) [phone]kbIkfrad17-32-4016 15:04-0400Diastolic blood nvebrwix73 mm[Hg]Zoë Garcia MD Work Phone: 1(710) [phone]updCchdze82-25-9310 15:04-0400Heart rate98 /min Zoë Garcia MD Work Phone: 1(293) [phone]CpjnWkvrym20-57-6706 15:04-9172YtG8% (BldA) [Mass fraction]96 %Zoë Garcia MD Work Phone: 1(523) [phone]pdtsc70-60-0372 15:04-0400Systolic blood pressure 169 mm[Hg]Zoë Garcia MD Work Phone: 1(641) [phone]07QcbqRynzpr70-43-3758 13:07-0400Diastolic blood swfmtlya615 mm[Hg]Virgen Campos MD Work Phone: 1(410) [phone]JkfoPtlyfv75-01-9583 13:07-0400Heart rate97 /min Virgen Campos MD Work Phone: 1(552) [phone]bLymtoe75-67-6535 13:07-3196QnH1% (BldA) [Mass fraction]97 %Virgen Campos MD Work Phone: 1(187) [phone]gLauvbm82-95-1485 13:07-0400Systolic blood pressure 166 mm[Hg]Virgen Campos MD Work Phone: 1(603) [phone]jalYdigxr84-30-1176 14:30-0400Diastolic blood wtrykyaa39 mm[Hg]Stephany Pelayo PA-C Work Phone: 1(469) [phone]elyQxuutz28-94-6785 14:30-0400Systolic blood pressure 138 mm[Hg]Stephany Pelayo PA-C Work Phone: 1(795) [phone]qmaVdcthy89-19-2031 13:43-0400Body .5 cm Stephany Pelayo PA-C Work Phone: 1(449) [phone]ogePiwecd53-84-8711 13:43-0400Body mass index (BMI) [Ratio]50.66 kg/d7ThlrgStephany Pelayo PA-C Work Phone: 1(776) [phone]qdvXbrrph18-52-7566 13:43-0400Body mjkjmaeyiql78.7 [degF]Stephany Pelayo PA-C Work Phone: 1(459) [phone]aiaRbxjcs14-16-0829 13:43-0400Body iziwut798.65 kg Stephany Pelayo PA-C Work Phone: 1(526) [phone]leqHhumui13-42-4980 13:43-0400Heart rate91 /minStephany Pelayo PA-C Work Phone: 1(200) [phone]mOmxhnv93-47-4402 13:43-5602ToR9% (BldA) [Mass fraction]98 %Stephany Pealyo PA-C Work Phone: 1(402) [phone]ySovnlo69-20-8587 19:31-0400Diastolic blood gfoxnniz79 mm[Hg]Floyd Mercado MD Work Phone: 1(087)[address]04-03-2024 19:31-0400Systolic blood lzweuksd849 mm[Hg]Floyd Mercado MD Work Phone: 1(307)[address] [place], [place] 6202304-03-2024 17:47-0400Body mpkqziegrvb16.39 [degF]Floyd Mercado MD Work Phone: 1(478)[address] [place], [place] 6202304-03-2024 17:47-0400Heart rdrx702 /minFloyd Mercado MD Work Phone: 1(216)[address] [place], [place] 6202304-03-2024 17:47-0400 Respiratory rate15 /minFloyd Mercado MD Work Phone: 1(188)[address] [place], [place] 6202304-03-2024 17:47-2118BjH3% (BldA) [Mass fraction]99 %Floyd Mercado MD Work Phone: 1(559)[address]03-11-2024 14:22-0400 Diastolic blood yoenywur22 mm[Hg]Zoë Garcia MD Work Phone: 1(271) [phone]lyzby41-12-7914 14:22-0400Heart ebiy138 /min Zoë Garcia MD Work Phone: 1(970) [phone]-341114MeliImodvu49-80-3936 14:22-0400Systolic blood pressure 140 mm[Hg]Zoë Garcia MD Work Phone: 1(128) [phone]lmvVgeejl13-89-0173 14:54-0500Diastolic blood hefubljc06 mm[Hg]Harris Bhat MD Work Phone: 1(896) [phone]-637668NvjgJlfbqz29-88-1025 14:54-0500Systolic blood pressure 162 mm[Hg]Harris Bhat MD Work Phone: 1(874) [phone]-526917QwzxJwdwjw72-19-5339 14:40-0500Body lgrupb659.5 cm Harris Bhat MD Work Phone: 1(796) [phone]-166354CcchQjjkqq89-94-3911 14:40-0500Body czepxjrlrtn36.39 [degF]Harris Bhat MD Work Phone: 1(795) [phone]79GbttUrsflf51-51-9372 14:40-0500Heart rate96 /minHarris Bhat MD Work Phone: StwpWpnslf08-964977QzoeXglevo06-23-9851 14:40-7140JiT4% (BldA) [Mass fraction]98 %Harris Bhat MD Work Phone: XjrhEczycz25-995691WvzaEgppmx34-80-3265 15:09-0500Body noiqni479.5 cm Stephany Pelayo PA-C Work Phone: 1(385) [phone]-361681LkfoFtrqql19-72-7910 15:09-0500Body mass index (BMI) [Ratio]47.55 kg/l5JhewoStephany Pelayo PA-C Work Phone: NcszJxulav19-549879GowdSpbywu77-79-8677 15:09-0500Body yjnlzumvzgf42.3 [degF]Stephany Pelayo PA-C Work Phone: 1(864) [phone]qylOdlcpr37-97-4761 15:09-0500Body yfzzzu283.94 kg Stephany Pelayo PA-C Work Phone: 1(123)[phone]bwdFetmci30-22-5004 15:09-0500Diastolic blood jqxukvrc38 mm[Hg]Stephany Pelayo PA-C Work Phone: 1(277)[phone]zfuQshogc78-14-1772 15:09-0500Heart rate95 /minStephany Pelayo PA-C Work Phone: 1(166) [phone]pngRdsiyq67-00-5408 15:09-7317HwZ3% (BldA) [Mass fraction]97 %Stephany Pelayo PA-C Work Phone: 1(766)[phone]binSxyoje84-80-3958 15:09-0500Systolic blood pressure 138 mm[Hg]Stephany Pelayo PA-C Work Phone: 1(391) [phone]bztTuejto76-14-8408 11:40-0500Diastolic blood jehpmtgl025 mm[Hg]Stephany Pelayo PA-C Work Phone: 1(620) [phone]xrmUckrbq60-19-2033 11:40-0500Systolic blood pressure 182 mm[Hg]Stephany Pelayo PA-C Work Phone: 1(411) [phone]JywkYpwqbq05-27-9426 11:31-0500Body mass index (BMI) [Ratio]47.76 kg/s3ThingStephany Pelayo PA-C Work Phone: 1(649) [phone]xpsQlhrne52-04-5945 11:31-0500Body cxiuvztuocc53.3 [degF]Stephany Pelayo PA-C Work Phone: 1(874) [phone]scdAlvdzl15-87-9225 11:31-0500Body kjthel814.43 kg Stephany Pelayo PA-C Work Phone: 1(105) [phone]38BbwgNzuudg83-10-6856 11:31-0500Heart rate94 /minStephany Pelayo PA-C Work Phone: 1(269) [phone]JrukNnqndc88-02-0242 11:31-0194OrC3% (BldA) [Mass fraction]98 %Stephany Pelayo PA-C Work Phone: 1(896) [phone]ghiWpkwvx06-09-6285 15:45-0500Body oxudqednhgh06.81 [degF]Ama Brenden WYQuexElsjin33-25-6646 15:45-0500Diastolic blood pressure 108 mm[Hg]Ama Brenden ELOmejBoxjfm79-62-8046 15:45-0500Heart rate72 /min Ama Aaronut TXVgyfRpkfsx54-88-2656 15:45-0500Respiratory rate18 /minAma Aaronut MFQjouNzqjss94-03-4817 15:45-1329RfQ5% (BldA) [Mass fraction]96 %Ama Brenden MPAzweXndwkc07-11-0729 15:45-0500Systolic blood dksqdywl601 mm[Hg]Ama Wilcox BGPsfhKkmuxd49-98-7796 15:14-0500Body ixexsqepabq31.5 [degF]Keyla Johnson GVNTbxsUmqrgm91-62-5655 15:14-0500Diastolic blood mm[Hg] Keyla Johnson JOEPjfdPkkzye09-12-7225 15:14-0500Heart rate87 /min Keyla Johnson XARMjeyYxvuhg28-86-5392 15:14-0500Respiratory rate13 /min Keyla Johnson WYUBdfcSdagse58-65-9785 15:14-7502ZxA2% (BldA) [Mass fraction]97 %Keyla Johnson UFIPatdTrvddo80-22-8726 15:14-0500Systolic blood qgmlegvc266 mm[Hg]Keyla Johnson AFIMevuIitjdh79-16-9695 16:30-0500 Body thrmpopvkcj54.1 [degF]Cece Colin IPLlknRubboz35-96-6585 16:30-0500 Diastolic blood yykpplex75 mm[Hg]Cece Colin GDEnjhIenngm81-04-6450 16:30-0500 Heart rate90 /minpita Colin RQGbogHnjurn24-31-2417 16:30-0500Respiratory rate 17 /minCece Colin TXMurcBybden06-01-6870 16:30-2338FyK9% (BldA) [Mass fraction]98 %Cece Colin VAIqgcLpihhs18-88-5354 16:30-0500Systolic blood knbnhcyj835 mm[Hg]Cece Colin WVHsxtQcmttk48-66-9384 09:33-0500Body temperature 98.4 [degF]Nikko Pratt RDHEzeeNmmzbt18-97-9114 09:33-0500Diastolic blood mnssgava12 mm[Hg]Nikko Terence ICZPzopDwmdof50-55-8208 09:33-0500Heart rate77 /min Nikko Terence LUIXpkdLnieif88-96-6391 09:33-0500Respiratory rate17 /minNikko Terence MGXEtjtBzmfvz26-16-4452 09:33-0391UnS8% (BldA) [Mass fraction]96 %Nikko Pratt ZNITeqjGsisbp18-30-1278 09:33-0500Systolic blood eudtgljf227 mm[Hg]Nikko Pratt AENHlwgOiynwe99-04-2033 12:04-0500Body iqohctidaok51.1 [degF][facility] HospitalDvwfBizpjm59-68-3502 12:04-0500Diastolic blood cfildycp46 mm[Hg][facility]isa Padron [facility] HospitalPdsuUskumm24-61-6294 12:04-0500Heart rate78 /minLisa Padron [facility] 04-08-2023 12:04-0500Respiratory rate13 /minLisa Padron EDGzonFnzxia57-39-3479 12:04-7835HcQ1% (BldA) [Mass fraction]99 %Lisa Padron CVUrjwWdzwyv93-68-2867 12:04-0500Systolic blood yxznbwaf020 mm[Hg]Lisa Padron BLVeykRqxewx49-67-0475 11:18-0500Body ucvnjmvulns44.71 [degF]Carlitos Carrera RXGZutnFhwplf18-99-4991 11:18-0500Diastolic blood dewfpena57 mm[Hg]Carlitos Carrera [facility] 04-08-2023 11:18-0500Heart rate76 /minCarlitos Carrera EFGOzggTvmagb98-04-8881 11:18-0500Respiratory rate16 /minCarlitos Carrera LOBXkdqHrhfsx72-08-7339 11:18-8302SgM7% (BldA) [Mass fraction]99 %Carlitos Carrera OGBLkkfBbfvlb95-75-1690 11:18-0500Systolic blood rtcfxlor539 mm[Hg]Carlitos Carrera [facility] 04-01-2023 00:00-0500Body xcjsmnyjfuj47.6 [degF]Kassidy Wick [facility] 04-01-2023 00:00-0500Diastolic blood wrojisvh53 mm[Hg]Kassidy Wick [facility] 04-01-2023 00:00-0500Heart rate60 /minKassidy Wick CBHfxqQyfeia67-70-9941 00:00-0500Respiratory rate16 /minKassidy Wick PHTqrgMrggqx26-31-5310 00:00-0500 SaO2% (BldA) [Mass fraction]100 %Kassidy Wick UCPvrrAwzgea88-29-5710 00:00-0500 Systolic blood fifhsqfa814 mm[Hg]Kassidy Wick ZCPnpeIsvkxj26-87-4986 11:57-0500 Body raqagekzgta61.81 [degF]Harshad Rizzo MD Work Phone: 1(581) [phone]pipUwrnfp89-42-6024 11:57-0500Diastolic blood asukruug91 mm[Hg]Harshad Rizzo MD Work Phone: 1(748) [phone]-099116ClmhFrfsqh08-97-3700 11:57-0500Heart rate65 /Mariely Rizzo MD Work Phone: 1(862) [phone]-990624RgxzPpygkz59-57-4021 11:57-6299JyY0% (BldA) [Mass fraction]98 %Harshad Rizzo MD Work Phone: 1(596) [phone]97104OxohVaeysq39-55-3206 11:57-0500Systolic blood pressure 97 mm[Hg]Harshad Rizzo MD Work Phone: 1(818) [phone]-033822GcwxGpzjra73-66-7078 07:23-0500Respiratory rate15 /min Harshad Rizzo MD Work Phone: 1(565) [phone]9-739364VopgCaqreu71-37-9480 14:38-0500Body ffixbd774.5 Jose Rizzo MD Work Phone: 1(350) [phone]-477383GttjNoqjfd77-75-3232 14:38-0500Body mass index (BMI) [Ratio]46.81 kg/m2Harshad Rizzo MD Work Phone: 1(998) [phone]-513378BiwyFftfyt92-23-1788 14:38-0500Body ptyftm595.1 kgHarshad Rizzo MD Work Phone: 1(284) [phone]-533515AwzmMwiugr06-64-4316 08:00-0400Respiratory rate16 /min Harshad Rizzo MD Work Phone: 1(433) [phone]4-240439FivvOuqiuo42-88-5913 07:36-0400Body pisttlbmbcq29.9 [degF]Harshad Rizzo MD Work Phone: 1(226) [phone]-134104QldjMmoitg75-22-1439 07:36-0400Diastolic blood mm[Hg]Harshad Rizzo MD Work Phone: 1(959) [phone]-560251MbkuXquoyu41-02-0251 07:36-0400Heart rate89 /minSher Matthias STEVENS Work Phone: 1(418) [phone]-524589ArexWidnkt37-03-5628 07:36-3884GgP2% (BldA) [Mass fraction]99 %Harshad Rizzo MD Work Phone: UtysChmcps55-818630ByjeMclgux95-14-0043 07:36-0400Systolic blood pressure 111 mm[Hg]Harshad Rizzo MD Work Phone: 1(222) [phone]2-131066GflxUixiqu25-47-5298 04:34-0400Body mass index (BMI) [Ratio]46.53 kg/m2Harshad Rizzo MD Work Phone: 1(267) [phone]4-632045FvqtMoqoel46-95-2495 04:34-0400Body febjqn417.4 kgHarshad Rizzo MD Work Phone: 1(487) [phone]HydgYoensj28-13-4557 02:46-0400Body sldeub077.5 Jose Rizzo MD Work Phone: 1(840) [phone]4-603477UqziLclihz88-79-7235 15:24-0400Body rambrj917.5 cm Josué Mellis DO Work Phone: 1(885) [phone]TgsaSjwcrd41-38-7320 15:24-0400Body mass index (BMI) [Ratio]45.73 kg/t5Zntdi Mellis DO Work Phone: 1(700) [phone]-041648VjkoTjeyme93-83-6361 15:24-0400Body uiyirr986.4 kg Josué Mellis DO Work Phone: 1(573) [phone]h05-205075GuapPydwan82-69-6715 06:43-0400Diastolic blood mm[Hg]Jocelyn Bowen MD Work Phone: 1(627) [phone]84-908552XtofzLfrjyt54-84-9785 06:43-0400Heart rate62 /minJocelyn Bowen MD Work Phone: HsbrqQnaxah54-106888MkuelNtnfbt06-32-9090 06:43-9993XmM0% (BldA) [Mass fraction]96 %Jocelyn Bowen MD Work Phone: TxmsqZggdnt19-886342NszxwIqjagm11-66-1018 06:43-0400Systolic blood mm[Hg]Jocelyn Bowen MD Work Phone: [phone])201-7560WdvugEuumqm91-945617VskebZurqya06-27-1768 19:48-0400Body vitielhstqc76.59 [degF]Jocelyn Bowen MD Work Phone: WurpdRfawdv06-257055TetdxZbmfac10-85-6482 19:48-0400Respiratory rate17 /Robin Bowen MD Work Phone: 1(671) [phone]02-692359TeqkiAlrjgo47-89-8663 18:21-0400Diastolic blood tybjlsws924 mm[Hg]Preston Charli [address]05-15-2023 18:21-0400Heart xfoj020 /minPreston Lugo [address] [place], [place] 7252905-15-2023 18:21-0400Mean blood kshvsasr415 mm[Hg]Preston Lugo [address] [place], [place] 7252905-15-2023 18:21-0400 Respiratory rate18 /minPreston Lugo [address] [place], [place] 7252905-15-2023 18:21-7859LxV7% (BldA) [Mass fraction]99 %Preston Lugo [address] [place], [place] 7252905-15-2023 18:21-0400 Systolic blood zqhzlwve595 mm[Hg]Preston Lugo [address] [place], [place] 7252905-15-2023 17:00-0400 Diastolic blood mm[Hg]Preston Lugo [address] [place], [place] 7252905-15-2023 17:00-0400Heart mysv070 /minPreston Lugo [address]05-15-2023 17:00-0400Mean blood vkyczvul729 mm[Hg]Preston Lugo [address] [place], [place] 7252905-15-2023 17:00-0400 Respiratory rate16 /minPreston Lugo [address] [place], [place] 7252905-15-2023 17:00-7006QwD7% (BldA) [Mass fraction]97 %Preston Lugo [address] [place], [place] 7252905-15-2023 16:00-0400 Diastolic blood szkkhwuf519 mm[Hg]Preston Lugo [address]05-15-2023 16:00-0400Mean blood yfxqbsym167 mm[Hg]Preston Lugo [address] [place], [place] 7252905-15-2023 16:00-8489FbT1% (BldA) [Mass fraction]100 %Preston Lugo [address] [place], [place] 7252905-15-2023 16:00-0400 Systolic blood mm[Hg]Preston Lugo [address]05-15-2023 14:26-0400Body vzygevdqomm67.24 [degF]Preston Lugo [address] [place], [place] 7252905-15-2023 14:26-0400Heart ilku211 /Jhonathan Lugo [address] [place], [place] 7252904-24-2023 15:00-0400 Hourly RoundingManinder Kinza [facility]04-24-2023 15:00-0400 Promise to ReturnManinder Kinza [facility]04-24-2023 14:00-0400 Hourly RoundingManinder Kinza [facility]04-24-2023 14:00-0400 Promise to ReturnPepe Clearyer [address] [place], [place] 9820104-24-2023 13:00-0400 Hourly RoundingSweet Homerandolph Clearyer [address] [place], [place] 9820104-24-2023 13:00-0400 Promise to ReturnPepe Clearyer [address] [place], [place] 9820104-24-2023 12:00-0400Blood Pressure LocationSweet Homerandolph Clearyer [address] [place], [place] 2294304-24-2023 12:00-0400Body uwtsstpteqp44.06 [degF]Peperandolph Clearyer [address] [place], [place] 2294304-24-2023 12:00-0400 Diastolic blood urqkobju25 mm[Hg]Peperandolph Clearyer [address]04-24-2023 12:00-0400Heart rate59 /minPepe Clearyer [address] [place], [place] 9820104-24-2023 12:00-0400Mean blood epkjvkrq52 mm[Hg]Peperandolph Clearyer [address] [place], [place] 9820104-24-2023 12:00-0400 Respiratory rate16 /minPepe Clearyer [address] [place], [place] 9820104-24-2023 12:00-1058PuB9% (BldA) [Mass fraction]96 %Pepe Clearyer [address] [place], [place] 9820104-24-2023 12:00-0400 Systolic blood troeyulg738 mm[Hg]Peperandolph Clearyer [address] [place], [place] 9820104-24-2023 08:35-0400 Diastolic blood reybbrse88 mm[Hg]Pepe Kinza [address] [place], [place] 9820104-24-2023 08:35-0400Heart rate72 /minPepe Clearyer [address] [place], [place] 2294304-24-2023 08:35-0400 Systolic blood npmxhhar551 mm[Hg]Pepe Kinza [address] [place], [place] 2294304-24-2023 08:00-0400Heart rate68 /minManinder Kinza [address] [place], [place] 2294304-24-2023 08:00-0400Mean blood seivwbay053 mm[Hg]Pepe Kinza [address] [place], [place] 2294304-24-2023 08:00-8801LrI3% (BldA) [Mass fraction]94 %Pepe Kinza [address] [place], [place] 2294304-24-2023 01:00-0400Body dxgiqqibemd17.88 [degF]Pepe Kinza [address] [place], [place] 2294304-24-2023 01:00-0400Heart rate61 /minManrandolph Kinza [address] [place], [place] 2294304-24-2023 01:00-8041PrT4% (BldA) [Mass fraction]96 %Pepe Kinza [address] [place], [place] 2294304-23-2023 16:00-0400Blood Pressure LocationSweet Homerandolph Kinza [address] [place], [place] 2294304-23-2023 16:00-0400Heart rate94 /minManinder Kinza [address] [place], [place] 9820104-23-2023 16:00-0400Mean blood lqliwvay566 mm[Hg]Pepe Kinza [address] [place], [place] 9820104-23-2023 12:00-0400Heart yvmg369 /minManinder Kinza [address] [place], [place] 2294304-23-2023 07:00-0400Heart rate90 /minManrandolph Kinza [address] [place], [place] 2294304-22-2023 23:58-0400Heart rate91 /minManinder Kinza [facility]04-22-2023 21:01-0400Heart rate92 /minManinder Kinza [facility]04-22-2023 16:08-0400gluc 132 mg/dLManinder Kinza [address] [place], [place] 9820104-22-2023 12:30-0400gluc 85 mg/dLManinder Kinza [address] [place], [place] 9820104-22-2023 07:21-0400gluc 122 mg/dLManinder Kinza [address] [place], [place] 9820104-21-2023 19:20-0400Mean blood dsiehuvn397 mm[Hg]Pepe Kinza [address] [place], [place] 9820104-21-2023 16:45-0400 Respiratory rate18 /minManinder Kinza [facility]04-21-2023 07:12-0400Body .48 cmNP-C Kip Soviak Work Phone: [phone](870)357-[facility]04-21-2023 07:12-0400 Body gnqslsnmxir65 [degF]FINISHING TECHNICIAN-C Kip Soviak Work Phone: [phone](244)844-[facility]04-21-2023 07:12-0400 Body rgrirp201.39 kgNP-C Kip Soviak Work Phone: 1(451)464-[facility]04-21-2023 07:12-0400 Diastolic blood incpibgu79 mm[Hg]FINISHING TECHNICIAN-C Kip Soviak Work Phone: 1(045)240-[facility]04-21-2023 07:12-0400 Heart rate98 /minNP-C Kip Soviak Work Phone: 1(305)089-[facility]04-21-2023 07:12-0400 Respiratory rate16 /minNP-C Kip Soviak Work Phone: 1(576)[address] [place], [place] 9805804-21-2023 07:12-0400 SaO2% (BldA) [Mass fraction]97 %FINISHING TECHNICIAN-C Kip Soviak Work Phone: 1(119)[address] [place], [place] 9805804-21-2023 07:12-0400 Systolic blood whjseits917 mm[Hg]FINISHING TECHNICIAN-C Kip Soviak Work Phone: [phone])[address] [place], [place] 9805803-31-2023 14:55-0400 Body vyrieujlfbh96.2 [degF]FINISHING TECHNICIAN-C Kip Soviak Work Phone: 1(594)[address] [place], [place] 9805803-31-2023 14:55-0400 Diastolic blood edeqwodh83 mm[Hg]FINISHING TECHNICIAN-C Kip Soviak Work Phone: 1(120)[address] [place], [place] 9805803-31-2023 14:55-0400 Heart rate77 /minNP-C Kip Soviak Work Phone: 1(995)[address] [place], [place] 9805803-31-2023 14:55-0400 Respiratory rate20 /minNP-C Kip Soviak Work Phone: 1(123)[address] [place], [place] 9805803-31-2023 14:55-0400 SaO2% (BldA) [Mass fraction]96 %FINISHING TECHNICIAN-C Kip Soviak Work Phone: 1(532)[address] [place], [place] 9805803-31-2023 14:55-0400 Systolic blood qdoyectg270 mm[Hg]FINISHING TECHNICIAN-C Kip Soviak Work Phone: 1(986)[address] [place], [place] 9805803-31-2023 06:00-0400 Body largfr014 kgNP-C Kip Soviak Work Phone: 1(477)[address] [place], [place] 9805803-29-2023 16:45-0400 Body buaapx346.48 cmNP-C Kip Soviak Work Phone: 1(901)[address] [place], [place] 9805803-29-2023 02:34-0400 Diastolic blood hxrmpytu38 mm[Hg]FINISHING TECHNICIAN-C Kip Soviak Work Phone: 1(872)353-[address] [place], [place] 8042003-29-2023 02:34-0400 Heart rate72 /minNP-C Kip Soviak Work Phone: 1(435)597-[address] [place], [place] 8042003-29-2023 02:34-0400 Respiratory rate18 /minNP-C Kip Soviak Work Phone: 1(968)936-[address] [place], [place] 8042003-29-2023 02:34-0400 SaO2% (BldA) [Mass fraction]100 %FINISHING TECHNICIAN-C Kip Soviak Work Phone: 1(037)[address]03-29-2023 02:34-0400 Systolic blood cafjnmbp621 mm[Hg]FINISHING TECHNICIAN-C Kip Soviak Work Phone: 1(216)[address]03-28-2023 21:42-0400 Body teuxrw302.48 cmNP-C Kip Soviak Work Phone: 1(492)[address]03-28-2023 21:42-0400 Body mzgveunutjp02.6 [degF]FINISHING TECHNICIAN-C Kip Soviak Work Phone: 1(221)[address]03-28-2023 21:42-0400 Body fdxomx483.1 kgNP-C Kip Soviak Work Phone: 1(547)[address]03-28-2023 20:27-0400 Diastolic blood jqqcvizf829 mm[Hg]Santos Velez [facility]03-28-2023 20:27-0400Heart crly024 /Vanesa Velez [facility]03-28-2023 20:27-0400Mean blood hfzacwpc539 mm[Hg]Santos Velez [facility]03-28-2023 20:27-0400 Respiratory rate23 /minSantos Velez [facility]03-28-2023 20:27-4281QuE1% (BldA) [Mass fraction]97 %Santos Velez [address]03-28-2023 20:27-0400 Systolic blood hluwgrsr156 mm[Hg]Santos Velez [address]03-28-2023 18:00-0400 Diastolic blood bypzdpdk01 mm[Hg]Santos Velez [address] [place], [place] 0107303-28-2023 18:00-0400 Respiratory rate18 /minSantos Velez [address]03-28-2023 18:00-0400 Systolic blood qlhkpezj627 mm[Hg]Santos Velez [address] [place], [place] 0107303-28-2023 17:04-0400Body yclanzvdgyg42.7 [degF]Santos Velez [address] [place], [place] 0107303-28-2023 17:04-0400 Diastolic blood alikvatc102 mm[Hg]Santos Velez [address]03-28-2023 17:04-0400Heart rovb784 /Vanesa Velez [address] [place], [place] 7252903-28-2023 17:04-0400 Respiratory rate16 /minSantos Velez [address] [place], [place] 7252903-28-2023 17:04-1930MeZ7% (BldA) [Mass fraction]98 %Santos Velez [address] [place], [place] 7252903-28-2023 17:04-0400 Systolic blood upbbqqbf377 mm[Hg]Santos Velez [address] [place], [place] 0107301-09-2023 20:00-0500 Diastolic blood nofsfhyg20 mm[Hg[facility] 20:00-0500Heart rate92 /[facility]01-09-2023 20:00-0500Mean blood xhqzndpa974 mm[Hg][facility]01-09-2023 20:00-0500Respiratory rate17 /[facility]01-09-2023 20:00-3787LvS9% (BldA) [Mass fraction] 100 %[facility]01-09-2023 20:00-0500Systolic blood aetjbrke108 mm[Hg][facility]01-09-2023 19:00-0500Diastolic blood yantdypi67 mm[Hg][facility]01-09-2023 19:00-0500Heart rate97 /[facility]01-09-2023 19:00-0500Mean blood yhrvioxx810 mm[Hg][facility]01-09-2023 19:00-4812PaI6% (BldA) [Mass fraction]99 %[facility]01-09-2023 19:00-0500Systolic blood pressure 154 mm[Hg][facility]01-09-2023 18:00-0500 Diastolic blood aimivuvv68 mm[Hg][facility] 06-02-2022 18:00-0500Heart rate96 /[facility]01-09-2023 18:00-0500Mean blood efwgedrb470 mm[Hg][facility]01-09-2023 18:00-6449DsP9% (BldA) [Mass fraction]98 %[facility]01-09-2023 18:00-0500Systolic blood pressure 178 mm[Hg][facility]01-09-2023 15:50-0500Body jcqafrrxpmo09.7 [degF][facility]01-09-2023 15:50-0500Heart nkgr459 /[facility] 06-02-2022 15:50-0500Respiratory rate18 /[facility]-22-2022 16:18-0500Body cvairsmldjk43.24 [degF]Santos Velez [address] [place], [place] 7252912-22-2022 16:18-0500 Diastolic blood hctyijld23 mm[Hg]Santos Velez [address] [place], [place] 0107312-22-2022 16:18-0500Heart rate99 /minSantos Velez [address] [place], [place] 7252912-22-2022 16:18-0500 Respiratory rate18 /katelynSantos Velez [address] [place], [place] 0107312-22-2022 16:18-8807CtD6% (BldA) [Mass fraction]97 %Santos Velez [address] [place], [place] 7252912-22-2022 16:18-0500 Systolic blood xparrcwn861 mm[Hg]Santos Velez [address] [place], [place] 7252911-16-2022 10:00-0500 Hourly RoundingPatrick SAILAJA [address] [place], [place] 7252911-16-2022 10:00-0500 Promise to ReturnPatrick SAILAJA [address] [place], [place] 7252911-16-2022 09:00-0500 Hourly RoundingPatrick SAILAJA [address] [place], [place] 7252911-16-2022 09:00-0500 Promise to ReturnPatrick SAILAJA [address] [place], [place] 7252911-16-2022 08:51-0500 Diastolic blood gxmguimv68 mm[Hg]Ashutosh SAILAJA [address]11-16-2022 08:51-0500 Systolic blood jdeqgclq13 mm[Hg]Ashutosh MENARD [address]11-16-2022 08:19-0500Heart rate63 /minPatrick SAILAJA [address] [place], [place] 0107311-16-2022 08:19-0500 Respiratory rate18 /minPatrick SAILAJA [address]11-16-2022 08:14-0500Heart rate61 /minPatrick SAILAJA [address] [place], [place] 0107311-16-2022 08:14-0500 Respiratory rate18 /minPatrick SAILAJA [address] [place], [place] 0107311-16-2022 08:03-0500Blood Pressure LocationPatrick SAILAJA [address]11-16-2022 08:03-0500Body yuahkjteuun64.52 [degF]Ashutosh MENARD [address] [place], [place] 7252911-16-2022 08:03-0500 BP/Pulse Patient PositionPatrick SAILAJA [address] [place], [place] 7252911-16-2022 08:03-0500 Diastolic blood mm[Hg]Ashutosh MENARD [address] [place], [place] 7252911-16-2022 08:03-0500Heart rate62 /minPatrick SAILAJA [address] [place], [place] 7252911-16-2022 08:03-0500Mean blood blgylbgz82 mm[Hg]Ashutosh MORELOSSLIN [address]11-16-2022 08:03-0500 Respiratory rate18 /minPatrick SAILAJA [address] [place], [place] 0107311-16-2022 08:03-6085CwL9% (BldA) [Mass fraction]96 %Ashutosh MENARD [address] [place], [place] 0107311-16-2022 08:03-0500 Systolic blood qhruaxzz93 mm[Hg]Ashutosh MENARD [address] [place], [place] 0107311-16-2022 08:00-0500 Hourly RoundingAshutosh MENARD [address] [place], [place] 0107311-16-2022 08:00-0500 Promise to ReturnAshutosh MENARD [address] [place], [place] 0107311-16-2022 04:30-0500Blood Pressure LocationAshutosh MENARD [address] [place], [place] 0107311-16-2022 04:30-0500Body jzbrefzhbac82.8 [degF]Ashutosh MENARD [address] [place], [place] 7252911-16-2022 04:30-0500 BP/Pulse Patient PositionAshutosh MENARD [address] [place], [place] 0107311-16-2022 04:30-0500 Diastolic blood rjaskxou71 mm[Hg]Ashutosh MENARD [address] [place], [place] 7252911-16-2022 04:30-0027YlC6% (BldA) [Mass fraction]95 %Ashutosh MENARD [address] [place], [place] 7252911-16-2022 04:30-0500 Systolic blood mm[Hg]Ashutosh MENARD [address] [place], [place] 0107311-15-2022 22:36-0500Blood Pressure LocationAshutosh MENARD [address] [place], [place] 0107311-15-2022 22:36-0500Body exoocuihykw13.16 [degF]Ashutosh MORELOSSLIN [address] [place], [place] 0107311-15-2022 22:36-0500 BP/Pulse Patient PositionPafrancesca MORELOSSLIN [address] [place], [place] 0107311-15-2022 22:36-0500Mean blood szenpjdh60 mm[Hg]Ashutosh MORELOSSLIN [address] [place], [place] 0107311-15-2022 22:36-5708DoJ2% (BldA) [Mass fraction]97 %Ashutosh MORELOSSLIN [address] [place], [place] 0107311-15-2022 20:27-0500Body kfuqduxsvnt99.7 [degF]Ashutosh MORELOSSLIN [address] [place], [place] 0107311-15-2022 20:27-0500Mean blood fcmgadrw00 mm[Hg]Ashutosh MORELOSSLIN [address] [place], [place] 0107311-15-2022 16:55-0500Mean blood oiscijqv38 mm[Hg]Ashutosh MORELOSSLIN [address] [place], [place] 0107311-15-2022 12:18-0500gluc 133 mg/dLPafrancesca MORELOSSLIN [address] [place], [place] 0107311-15-2022 11:39-0500Body kmympdwrinm51.06 [degF]Ashutosh MORELOSSLIN [address] [place], [place] 0107311-15-2022 04:35-0500Mean blood njszqozv47 mm[Hg]Ashutosh MORELOSSLIN [address] [place], [place] 0107311-15-2022 04:00-0500gluc 124 mg/dLPakasimakenna MORELOSSAILAJA [address] [place], [place] 0107311-15-2022 01:00-0500Mean blood bassdyjl22 mm[Hg]Ashutosh MORELOSSLIN [address]11-14-2022 16:28-0500gluc 383 mg/dLPatrick SAILAJA [address] [place], [place] 0107311-14-2022 07:00-0500Heart rate80 /minPatrick SAILAJA [address] [place], [place] 0107311-14-2022 03:54-0500Heart rate95 /minPatrick SAILAJA [address] [place], [place] 0107311-14-2022 03:02-0500 Diastolic Blood Pressure Aaukiajo894 mm[Hg]Ashutosh SAILAJA [address]11-14-2022 03:02-0500Heart rate95 /minPatrick SAILAJA [address] [place], [place] 0107311-14-2022 03:02-0500Mean blood vamryziy213 mm[Hg]Ashutosh SAILAJA [address]11-14-2022 03:02-0500 Respiratory rate18 /minPatrick SAILAJA [address]11-14-2022 03:02-0500 Systolic blood mnigfgkn189 mm[Hg]Ashutosh SAILAJA [address]11-14-2022 02:28-0500 Diastolic Blood Pressure Bqbtvlry731 mm[Hg]Ashutosh SAILAJA [address]11-14-2022 02:28-0500Mean blood sqhoqptz117 mm[Hg]Ashutosh SAILAJA [address]11-14-2022 02:28-0500 Respiratory rate12 /minPatrick SAILAJA [address]11-14-2022 02:28-0500 Systolic blood eytyxxju218 mm[Hg]Ashutosh SAILAJA [facility]11-14-2022 01:05-0500 Diastolic Blood Pressure Swexuibe23 mm[Hg]Ashutosh MENARD [address] [place], [place] 7252911-14-2022 01:05-0500Mean blood pxqoaaxn602 mm[Hg]Ashutosh MENARD [address]11-14-2022 01:05-0500 Respiratory rate17 /minPafrancesca MENARD [address]11-14-2022 01:05-0500 Systolic blood mm[Hg]Ashutosh MENARD [address]10-06-2022 17:30-0400 Diastolic blood oqfejzqh38 mm[Hg]Gui Schafer [address]10-06-2022 17:30-0400Heart joeu064 /minTim Gilmar [address] [place], [place] 7252910-06-2022 17:30-0400Mean blood utydqhcd473 mm[Hg]Gui Schafer [address] [place], [place] 7252910-06-2022 17:30-0400 Respiratory rate13 /minTim Gilmar [address] [place], [place] 7252910-06-2022 17:30-5726UwW3% (BldA) [Mass fraction]99 %Gui Schafer [address] [place], [place] 7252910-06-2022 17:30-0400 Systolic blood optnmavk673 mm[Hg]Gui Schafer [address] [place], [place] 7252910-06-2022 17:00-0400 Diastolic blood nwonltae859 mm[Hg]Gui Schafer [address] [place], [place] 7252910-06-2022 17:00-0400Heart rate92 /minTim Gilmar [address] [place], [place] 0107310-06-2022 17:00-0400Mean blood jemvjwcb090 mm[Hg]Gui Schafer [address] [place], [place] 0107310-06-2022 17:00-8341CbV6% (BldA) [Mass fraction]98 %Gui Schafer [address] [place], [place] 0107310-06-2022 17:00-0400 Systolic blood xsprpomm764 mm[Hg]Gui Schafer [address] [place], [place] 0107310-06-2022 16:30-0400 Diastolic blood ctmcvifz941 mm[Hg]Gui Schafer [address] [place], [place] 0107310-06-2022 16:30-0400Heart rate96 /minGui Schafer [address] [place], [place] 0107310-06-2022 16:30-0400Mean blood uibhajmk538 mm[Hg]Gui Schafer [address] [place], [place] 0107310-06-2022 16:30-0400 Respiratory rate24 /minGui Schafer [address] [place], [place] 0107310-06-2022 16:30-9796PjI0% (BldA) [Mass fraction]97 %Gui Schafer [address] [place], [place] 0107310-06-2022 16:30-0400 Systolic blood wgmxylpt563 mm[Hg]Gui Schafer [address] [place], [place] 0107310-06-2022 12:31-0400gluc 256 mg/dLGui Schafer [address] [place], [place] 0107310-06-2022 12:31-0400gluc Gui Schafer [address] [place], [place] 0107310-06-2022 11:57-0400Body xhmyvyhebsf08.88 [degF]Gui Schafer [address] [place], [place] 0107310-06-2022 11:57-0400Heart rate99 /minGui Gilmar [address] [place], [place] 7252910-06-2022 11:57-0400 Respiratory rate18 /minTim Gilmar [address] [place], [place] 7252909-30-2022 14:53-0400Body llvrzgwwuks72.24 [degF]Santos Velez [address] [place], [place] 7252909-30-2022 14:53-0400 Diastolic blood gurcmlzu417 mm[Hg]Santos Velez [address] [place], [place] 7252909-30-2022 14:53-0400Heart insc169 /minSantos Velez [address] [place], [place] 7252909-30-2022 14:53-0400 Respiratory rate18 /minSantos Velez [address]09-30-2022 14:53-2467FvT1% (BldA) [Mass fraction]97 %Santos Velez [address] [place], [place] 7252909-30-2022 14:53-0400 Systolic blood oltaryws971 mm[Hg]Santos Velez [address] [place], [place] 7252909-02-2022 14:21-0400 Diastolic blood mm[Hg]Preston Lugo [address] [place], [place] 7252909-02-2022 14:21-0400Heart rate89 /minPreston Lugo [address] [place], [place] 7252909-02-2022 14:21-0400Mean blood mm[Hg]Preston Lugo [address] [place], [place] 7252909-02-2022 14:21-0400 Respiratory rate16 /minPreston Lugo [address] [place], [place] 7252909-02-2022 14:21-5566ZhE1% (BldA) [Mass fraction]99 %Preston Lugo [address] [place], [place] 7252909-02-2022 14:21-0400 Systolic blood zggziatw623 mm[Hg]Preston Lugo [address]09-02-2022 12:55-0400 Diastolic blood mm[Hg]Preston Lugo [address] [place], [place] 7252909-02-2022 12:55-0400Heart rate87 /minPreston Lugo [address]09-02-2022 12:55-0400Mean blood xemxrfej372 mm[Hg]Preston Lugo [address]09-02-2022 12:55-0400 Respiratory rate16 /minPreston Lugo [address] [place], [place] 7252909-02-2022 12:55-4182SbO3% (BldA) [Mass fraction]99 %Presotn Lugo [address] [place], [place] 7252909-02-2022 12:55-0400 Systolic blood yhcnfhwu703 mm[Hg]Preston Lugo [address] [place], [place] 7252909-02-2022 12:30-0400 Hourly RoundingPresotn Lugo [address] [place], [place] 7252909-02-2022 12:30-0400 Promise to ReturnPreston Lugo [address] [place], [place] 7252909-02-2022 10:46-0400Body mqazoymsyok26.78 [degF]Preston Lugo [address] [place], [place] 7252909-02-2022 10:46-0400 Diastolic blood cspyanib74 mm[Hg]Preston Lugo [address] [place], [place] 7252909-02-2022 10:46-0400Heart rate89 /Jhonathan Lugo [address]09-02-2022 10:46-0400Mean blood akahncst938 mm[Hg]Preston Lugo [address] [place], [place] 7252909-02-2022 10:46-0400 Respiratory rate18 /minJofariba Lugo [address] [place], [place] 7252909-02-2022 10:46-8793UxN0% (BldA) [Mass fraction]99 %Preston Lugo [address] [place], [place] 7252909-02-2022 10:46-0400 Systolic blood fkwjechs958 mm[Hg]Preston Lugo [address]08-18-2022 22:00-0400 [facility]18[facility]2022 22:00-0400 [facility]18-2022 21:47-0400 [facility]ing[facility]08-18-2022 21:47-0400 [facility]08-18-2022 20:00-0400 [facility]ing[facility]08-18-2022 20:00-0400 [facility]08-18-2022 18:00-0400 Diastolic blood uqgggpys16 mm[Hg][facility] 01-09-2022 18:00-0400Heart rate94 /[facility] 01-09-2022 18:00-0400Mean blood badzefay510 mm[Hg][facility]08-18-2022 18:00-1808LuM4% (BldA) [Mass fraction]98 %[facility]08-18-2022 18:00-0400Systolic blood mptgeokp052 mm[Hg][facility]08-18-2022 15:38-0400Body .78 [degF][facility]08-18-2022 15:38-0400Diastolic blood yhwvcwmj893 mm[Hg][facility]08-18-2022 15:38-0400Heart rate92 /minSouth[facility]08-18-2022 15:38-0876TxD2% (BldA) [Mass fraction]99 %[facility]08-18-2022 15:38-0400Systolic blood edehmylf339 mm[Hg][facility]08-18-2022 15:32-2009TcX0% (BldA) [Mass fraction]99 %[facility]08-18-2022 15:28-0400Blood Pressure LocationSouthwest [facility] Health Center08-18-2022 15:28-0400 BP/Pulse Patient PositionSouthwest General Health Center08-18-2022 15:28-0400Diastolic blood bkkaezxl828 mm[Hg][facility]08-18-2022 15:28-0400Heart rate92 /minSouth[facility]08-18-2022 15:28-0400Mean blood stzjarim782 mm[Hg][facility]08-18-2022 15:28-0400Systolic blood clfaphuy551 mm[Hg][facility]08-18-2022 14:56-0400Heart rate93 /minSouth[facility]08-18-2022 14:56-0400Mean blood mm[Hg][facility]08-18-2022 14:56-0400Respiratory rate16 /minSouth[facility]08-18-2022 14:15-0400 Respiratory rate18 /min[facility]08-18-2022 14:00-0400Mean blood ytxqxewa127 mm[Hg][facility] 01-09-2022 13:20-0400Heart rate97 /minNishit [facility] 01-09-2022 12:45-0400Heart samc586 /[facility] 01-09-2022 12:15-0400Body oofwebajxlj18.88 [degF]Juan [facility]08-18-2022 12:15-0400Respiratory rate20 /minSouth[facility]07-21-2022 16:48-0400Blood Pressure LocationBreanna Gu [phone]-NffyqOur [facility] 07-21-2022 16:48-0400Body kjdpoknoejo92.06 [degF] Breanna Gu [phone]-StruwOur [facility] Of [facility] 07-21-2022 16:48-0400Diastolic blood aquwgjvk96 mm[Hg] Breanna Gu [phone]-QolexOur Lady Of [facility] 07-21-2022 16:48-0400Heart gtxs748 /minBreanna Gu [phone]-AxfjiOur [facility] Of [facility] 07-21-2022 16:48-0364DkY2% (BldA) [Mass fraction]97 % Breanna Gu [phone]-FqsetOur [facility] Of [facility] 07-21-2022 16:48-0400Systolic blood xuasnsrp086 mm[Hg] Breanna Gu [phone]-DdaxrOur [facility] Of [facility] 07-17-2022 15:56-0400Diastolic blood uofrlqww33 mm[Hg] Antoine Sosa MD Work Phone: [facility]07-17-2022 15:56-0400Heart jkjq734 /minAntoine Sosa MD Work Phone: [facility]07-17-2022 15:56-0400 Respiratory rate16 /minAntonie Sosa MD Work Phone: [facility]07-17-2022 15:56-2550WjO6% (BldA) [Mass fraction]98 %Antoine Sosa MD Work Phone: [facility]07-17-2022 15:56-0400Systolic blood jlmepsou868 mm[Hg]Antoine Sosa MD Work Phone: [facility]07-17-2022 15:19-0400Body nsazfl329.5 cmAntoine Sosa MD Work Phone: [facility]07-17-2022 15:19-0400Body mass index (BMI) [Ratio]45.73 kg/s8MkymyvAntoine Sosa MD Work Phone: [facility]07-17-2022 15:19-0400Body kyqbqdpcllc01.6 [degF]Antoine Sosa MD Work Phone: [facility]07-17-2022 15:19-0400Body qqacya946.4 kgAntoine Sosa MD Work Phone: [facility]07-17-2022 12:44-0400Diastolic blood pcyodxat941 mm[Hg]Santos Moreno [facility]07-17-2022 12:44-0400Heart rate99 /minSantos Moreno [facility]07-17-2022 12:44-0400Mean blood szaudydg725 mm[Hg]Santos Moreno [facility]07-17-2022 12:44-0400 Respiratory rate17 /minKevin Josh [address]07-17-2022 12:44-8336EdA6% (BldA) [Mass fraction]98 %Santos Josh [address] [place], [place] [address]2907-17-2022 12:44-0400 Systolic blood mm[Hg]Santos Josh [address] [place], [place] 7252907-17-2022 12:20-0400 Diastolic blood hujpxpmg83 mm[Hg]Santos Josh [address]07-17-2022 12:20-0400Heart rate88 /minKevin Josh [address]07-17-2022 12:20-0400Mean blood nibonwma57 mm[Hg]Santos Josh [address]07-17-2022 12:20-0400 Respiratory rate17 /minKevin Josh [address] [place], [place] 7252907-17-2022 12:20-0400 Respiratory rate18 /minKevin Josh [address] [place], [place] 7252907-17-2022 12:20-1942HdR7% (BldA) [Mass fraction]99 %Santos Josh [address] [place], [place] 7252907-17-2022 12:20-0400 Systolic blood pytijrxj915 mm[Hg]Santos Josh [address] [place], [place] 7252907-17-2022 11:41-0400 Diastolic blood tgylrxah87 mm[Hg]Santos Josh [address] [place], [place] 7252907-17-2022 11:41-0400Heart rate89 /minKevin Josh [address]07-17-2022 11:41-0400Mean blood quduxztw93 mm[Hg]Santos Josh [address] [place], [place] 7252907-17-2022 11:41-0400 Respiratory rate18 /minSantos Moreno [address] [place], [place] 7252907-17-2022 11:41-5139CyM9% (BldA) [Mass fraction]99 %Santos Moreno [address] [place], [place] 7252907-17-2022 11:41-0400 Systolic blood fiklvitk210 mm[Hg]Santos Moreno [address] [place], [place] 7252907-17-2022 10:01-0400Body zavlcvtqjcg20.7 [degF]Santos Moreno [address] [place], [place] 7252907-17-2022 10:01-0400Heart bqah983 /minSantos Moreno [address] [place], [place] 7252907-17-2022 10:01-0400 Respiratory rate18 /minSantos Moreno [address] [place], [place] 7252906-15-2022 13:03-0400 [facility]ing[facility]d [facility]06-15-2022 13:03-[address] [facility]06-15-2022 12:05-0400Hourly RoundingAhmad [facility]06-15-2022 12:05-0400[facility]06-15-2022 11:05-0400Hourly [facility]06-15-2022 11:05-0400[facility]06-15-2022 11:00-0400Diastolic blood ftasnxqm50 mm[Hg][facility]06-15-2022 11:00-0400Heart rate72 /minAhmad [facility]06-15-2022 11:00-7947NsY8% (BldA) [Mass fraction]98 %[facility]06-15-2022 11:00-0400Systolic blood bysyabgl484 mm[Hg][facility]06-15-2022 08:04-0400Body zsklsesuvam51.06 [degF][facility]06-15-2022 08:04-0400Diastolic blood uzzyenln99 mm[Hg][facility]06-15-2022 08:04-0400Heart rate94 /[facility]06-15-2022 08:04-0400Mean blood ldkefzut568 mm[Hg] [facility]06-15-2022 08:04-7671AxP7% (BldA) [Mass fraction]99 %[facility]06-15-2022 08:04-0400Systolic blood duputnrp065 mm[Hg][facility]06-15-2022 08:00-0400Blood Pressure LocationMer[facility]06-15-2022 08:00-0400BP/Pulse Patient PositionMer[facility] Health St[facility]06-14-2022 23:33-2474CME491 %[facility]06-14-2022 23:33-0400Heart rate60 /[facility]06-14-2022 23:33-0400Respiratory rate12 /[facility]06-14-2022 23:33-0781VrP0% (BldA) [Mass fraction]97 %[facility]06-14-2022 23:00-0400Body qggyehxrmwp65.88 [degF][facility]06-14-2022 23:00-0400Diastolic blood ugguzrpj59 mm[Hg][facility]06-14-2022 23:00-0400Systolic blood fhdshpeg79 mm[Hg][facility]06-14-2022 20:41-0400Mean blood cekfeqvr785 mm[Hg][facility]06-14-2022 20:23-0400Respiratory rate18 /minMer[facility]06-14-2022 15:53-0400Blood Pressure LocationMer[facility]06-14-2022 15:53-0400BP/Pulse Patient [facility]Mer[facility] 11-05-2021 15:53-0400Mean blood apdahqjw135 mm[Hg][facility]06-14-2022 14:57-0400Heart ijnr862 /[facility]06-14-2022 11:08-0400[facility]14[facility]2022 11:08-0400BP/Pulse Patient [facility]Mer[facility]06-14-2022 00:25-0400Heart rate65 /min [facility]06-14-2022 00:25-0400Mean blood mm[Hg][facility]06-13-2022 19:15-0400Mean blood mm[Hg][facility]06-13-2022 18:49-0400Heart lxey396 /[facility]06-13-2022 17:44-0400Mean blood gxavupww51 mm[Hg][facility]05-18-2022 17:57-0400Diastolic blood oytjavri46 mm[Hg]Santos Velez [address]05-18-2022 17:57-0400Heart hkcd263 /minSantos Velez [address]05-18-2022 17:57-0400Mean blood cjuzeebi592 mm[Hg]Santos Velez [address]05-18-2022 17:57-0400 Respiratory rate16 /minSantos Velez [address] [place], [place] 0107305-18-2022 17:57-0703EnR5% (BldA) [Mass fraction]97 %Santos Velez [address] [place], [place] 0107305-18-2022 17:57-0400 Systolic blood mm[Hg]Santos Velez [address] [place], [place] 0107305-18-2022 17:40-0400 Hourly RoundingSantos Velez [address]05-18-2022 17:40-0400 Promise to ReturnSantos Velez [address] [place], [place] 7252905-18-2022 17:38-0400 Diastolic blood mm[Hg]Santos Velez [address] [place], [place] 7252905-18-2022 17:38-0400Heart ybak072 /minSantos Velez [address] [place], [place] 7252905-18-2022 17:38-0400Mean blood qkxiezpo786 mm[Hg]Santos Velez [address] [place], [place] 7252905-18-2022 17:38-0400 Respiratory rate16 /minSantos Velez [address] [place], [place] 7252905-18-2022 17:38-2310HxF1% (BldA) [Mass fraction]96 %Santos Velez [address] [place], [place] 7252905-18-2022 17:38-0400 Systolic blood elxegbdq130 mm[Hg]Santos Agustin [address] [place], [place] 7252905-18-2022 16:10-0400 Diastolic blood qxiqrwuh79 mm[Hg]Santos Agustin [address]05-18-2022 16:10-0400Heart oeqp899 /minSantos Velez [address]05-18-2022 16:10-0400 Hourly RoundingSantos Velez [address] [place], [place] 7252905-18-2022 16:10-0400Mean blood mm[Hg]Santos Agustin [address]05-18-2022 16:10-0400 Promise to ReturnSantos Velez [address] [place], [place] 7252905-18-2022 16:10-0400 Respiratory rate16 /minSantos Velez [address] [place], [place] 7252905-18-2022 16:10-7579PaX1% (BldA) [Mass fraction]96 %Santos Agustin [address] [place], [place] 7252905-18-2022 16:10-0400 Systolic blood hfhreoqo048 mm[Hg]Santos Velez [address] [place], [place] 7252905-18-2022 15:29-0400Body rjanswlpeaq32.6 [degF]Santos Velez [address] [place], [place] 7252905-18-2022 15:29-0400Heart nhbx084 /minSantos Velez [address] [place], [place] 7252905-09-2022 13:53-0400Blood Pressure Catrachita Gu [phone]-Bjfhm[address] [place] [address] Primary Care 05-09-2022 13:53-0400Body zhtntuvymdp98.7 [degF]Breanna Gu [phone]-IzbfwOur [facility] 05-09-2022 13:53-0400Diastolic blood itlntoav90 mm[Hg] Breanna Gu [phone]-XcbvfOur [facility] 05-09-2022 13:53-0400Heart rate72 /minBreanna Gu [phone]-JskafOur [facility] 05-09-2022 13:53-2913NmD2% (BldA) [Mass fraction]98 % Breanna Gu [phone]-QjihoOur [facility] Of [facility] 05-09-2022 13:53-0400Systolic blood wbhxroip636 mm[Hg] Breanna Gu [phone]-BlrytOur [facility] Of [facility] 04-11-2022 14:55-0400Blood Pressure LocationRyshelia Milena [facility]04-11-2022 14:55-0400 Diastolic blood afbrbsuw68 mm[Hg]Kirk Motterson [facility]04-11-2022 14:55-0400Heart rate67 /minRyan Christofferson [facility]04-11-2022 14:55-0400 Respiratory rate18 /minRyan Christofferson [facility]04-11-2022 14:55-4159CgH6% (BldA) [Mass fraction]100 %Kirk Motterson [facility]04-11-2022 14:55-0400 Systolic blood cyavdmei444 mm[Hg]Kirk Abbott [facility]01-21-2022 19:00-0500Body rgesth599.48 cmPgypsy June Other noEmbarr [place]s Other 01-21-2022 19:00-0500Body mass index (BMI) [Ratio] 42.06 kg/u2UijudfHerlinda June Other noEmbarr [place]s Other 01-21-2022 19:00-0500Body mhvebpgacru08.1 [degF]Herlinda Callahanmond Other [facility] Other 01-21-2022 19:00-0500Body thyysp810.33 kgHerlinda June Other [facility] Other 01-21-2022 19:00-1654QvE8% (BldA) [Mass fraction]97 % Herlinda Callahanmond Other [employer] Other 01-12-2021 15:11-0500Body Ogdlxdozbzc37.9 [degF][facility] EastRlgiGyweOphdpc24-51-2577 15:11-0500BP Xkuhtkscu40 mm[Hg][facility] 06-05-2020 15:11-0500BP Repfflyq945 mm[Hg][facility] EastPnkeQzohAtgvda49-18-7334 15:11-0500Pulse (Heart Rate)79 /[facility]beeOqslOaipwj32-76-0463 15:11-0500 Pulse Idahlduc65 %[facility] EastMgrqCkxiRufkad65-01-6030 15:11-0500Respiratory Rate15 /[facility] HospitalKilnMbetSvpmag59-46-2567 14:24-0500BMI (Body Mass Index)48.29 kg/m2 [facility] EastOrksJwsvNqfzws75-24-4022 14:24-0500Body [address] HospitalYdpbNajaxt98-25-6807 14:24-6399Biofru729.5 cmJohn George Psychiatric Pavilionlauren TthvIvufFwjfgq57-78-0674 13:59-0400Body Eypelrwphac40.3 [degF]Shameka [facility]2019 13:59-0400BP Mgmkmhvjq60 mm[Hg][facility]2019 13:59-0400BP Qycftjmy261 mm[Hg][facility]2019 13:59-0400Pulse (Heart Rate)98 /[facility] 13:59-0400Pulse Vdzuzklm125 %Shameka [facility]2019 13:59-0400Respiratory Rate16 /min [facility]2019 08:00-0400[facility] 14:20-0400Height 157.48 [facility]04-[facility]-2019 19:43-0400BMI (Body Mass Index)42.1 kg/n7RbvfbaaWilson [facility] Hospital 06-26-2017 21:27-0500BP Qkntrjpml004 mm[Hg][facility] Work Phone: 1(893) 454-966502-02-2018 21:27-0500BP Kdxmqhfi998 mm[Hg][facility] Work Phone: 1(669) 107-625402-02-2018 21:27-0500Pulse (Heart Rate)91 /minMichi HeranndezRiverview Health Institute Work Phone: 1(546) 176-825202-02-2018 21:27-0500Pulse Wkadunuj647 %Michi San [facility] Work Phone: 1(761) 860-492002-02-2018 21:27-0500Respiratory Rate17 /minMichi HernandezRiverview Health Institute Work Phone: 1(833) 132-644902-02-2018 18:34-0500BMI (Body Mass Index)36.58 kg/m2 [facility] Work Phone: 1(161) 146-506702-02-2018 18:34-0500Body Mkivungluft98.4 [degF] [facility] Work Phone: 1(839) 775-317902-02-2018 18:34-4949[place]ars886.5 cmMichi khang [facility] Work Phone: [phone] 18:34-8139Gpxqkm14.72 kgMichi San [facility] Work Phone: Encounters Encounter DateEncounter TypeCare ProviderFacilityStart: 04-04-2025 End: 05-59-5743bhzuetwuxmCyrnileu J Rice DO Work Phone: -[facility] CenteryStart: 04-04-2025 End: 91-94-6797Eovjfqz encounter procedureMitcorin Lopez DO-[facility] Work Phone: Start: 03-21-2025 End: 14-19-3275XuqojlDylesinemesio Elizalde CNP Work Phone: [facility] Pain Management [place] Comment on above:DDD (degenerative disc disease), lumbar; Lumbar radiculopathy; Lumbar stenosis with neurogenic claudicationStart: 37-42-3919Ews-patient / Non-visitAmiee [facility] Di Work Phone: Start: 03-14-2025 End: 23-39-6456Eeieespfo encounterSergio Resendez MD Work Phone: [facility] [place] EndocrinologyComment on above:Prior AuthorizationStart: 03-08-2025 End: 34-67-9720mdpbezuaejKTBWZFRKR LOUIS BONASSOOhio Health AmbulatoryStart: 03-08-2025 End: 40-13-5116Csgbqi outpatient new 20 minutesJustin Shaun Elizalde CNP Work Phone: [facility] Neurological PhysiciansComment on above: Back pain with radiculopathy (Primary Dx); Degeneration of intervertebral disc of lumbar region with discogenic back pain and lower extremity pain; Chronic pain of right kneeStart: 02-24-2025 End: 43-39-8439Uvhgdtpublwwz procedureJay Peralta [facility] Pain Management MariComment on above:Power scooter DMEStart: 02-23-2025 End: 51-45-4130Hnaofy outpatient visit 25 minutesJustin Shaun Lavonne BEATRIZ Work Phone: [facility] Pain Management [place] Comment on above:Lumbar stenosis with neurogenic claudication (Primary Dx); Left hand pain; Fall, initial encounter; Lumbar radiculopathy; Chronic pain syndrome; Myofascial pain syndrome; Degeneration of intervertebral disc of lumbar region with discogenic back pain and lower extremity painStart: 02-23-2025 End: 93-39-0909phroeltcrsWQIXGQFG NOT IN [facility] PhysiciansStart: 27-43-7892rnudsipvehYqakji TannaFacility:EU BellevueStart: 02-20-2025 End: 34-79-7453fmypfqiyeqQprssvas J Rice DO Work Phone: [facility] Work Phone: Start: 02-20-2025 End: 72-31-0273Lbfbqib encounter procedureAndrés Lopez DO-[facility] Work Phone: Start: 02-03-2025 End: 42-09-0900rngtwfkjsiTCAD CAMILA DIALSFacility:FTMCStart: 02-02-2025 End: 46-97-8046Uctsqlrohan Resendez MD Work Phone: [facility] Di EndocrinologyStart: 02-02-2025 End: 65-58-3035Injaghrohan Resendez MD Work Phone: [facility] Di EndocrinologyStart: 02-02-2025 End: 33-83-5938Mkjcga outpatient new 45 minutesSergio Resendez MD Work Phone: NOFL Di EndocrinologyComment on above:Type 2 diabetes mellitus with hyperglycemia, with long-term current use of insulin (HCC) (Primary Dx); Encounter for dietary consultation; Insulin long-term use (HCC); Class 3 severe obesity due to excess calories with serious comorbidity and body mass index (BMI) of45.0 to 49.9 in adult ([facility]-HCC); Hyperlipemia, mixed ; Vitamin D deficiency; Primary hypertension ; Encounter for fitting or adjustment of insulin pumpStart: 02-02-2025 End: 88-58-6738ljtnvmpxjfKWANV F SABBAGHNot AvailableStart: 01-09-2025 End: 96-63-9856pacqnftgsmKVBR ALAHMADFacility:FTMCStart: 12-28-2024 End: 07-39-9335lhykgxdrmwAzfjhhw D [facility]koM[facility] Work Phone: Start: 12-28-2024 End: 64-05-5956Undjxjxk ReferredBen Long DO-[facility] Start: 12-19-2024 End: 74-31-6657AkbhgkHrcoblfddWillie Velez DO Work Phone: [facility] Pain Management [place] Comment on above:Chronic pain syndrome; DDD (degenerative disc disease), lumbar; Lumbar radiculopathyStart: 12-06-2024 End: 26-76-2435Rmlzuwape encounterCathy [facility] Medication ManagementStart: 12-02-2024 End: 16-20-3739Qaodsrqltr and management of inpatientJudy Mio Vargas MD Work Phone: [facility] - GEN 8 AcuteComment on above:HHS (hypothenar hammer syndrome) (Primary Dx); Hyperosmolar hyperglycemic state (HHS) ([facility]-HCC)Start: 01-67-7593iuckezgczpILT D [facility] Ambulatory PPGStart: 11-21-2024 End: 67-44-1016ChuyezQtgpkdfbgWillie Velez DO Work Phone: [facility] Pain Management [place] Comment on above:DDD (degenerative disc disease), lumbar; Lumbar radiculopathy; Chronic pain syndromeStart: 11-04-2024 End: 77-63-0529Oogcfzf encounter Andra Romeo PA-C Work Phone: [facility] [place]isse Comment on above:No-show for appointment (Primary Dx)Start: 84-09-1922yynqgwketnkarlo ROMEOFacility:[facility] RENAISSANCEtart: 10-11-2024 End: 97-51-5941Uthmqn OnlyJim Velez DO Work Phone: [facility] Management [place] Start: 10-06-2024 End: 26-58-9089SbzsvoAoacfvkflWillie Velez DO Work Phone: [facility] Management [place] Comment on above:Chronic pain syndromeStart: 85-68-6728Epzikjkxch and management of inpatientMUNIER NAZZALUniMercy Health Anderson Hospitaltart: 10-02-2024 Evaluation and management of inpatientMUHAMMAD ASHLEYOur Lady of Mercy Hospital - Andersontart: 53-23-6490Wuezjzcfas and management of inpatientSMONTGOMERYR [facility] Centertart: 84-62-2794Ygrpchoqds and management of inpatientSAMAR [facility] Centertart: 10-01-2024 End: 11-24-1229Hdljiurjjy and management of inpatientDARYL T [facility] Hospitaltart: 09-29-2024 End: 77-73-3818Vdykogkhfdlpq procedureJay SANTANAFlower Hospital [facility] Pain Management VeliaComment on above:ZynexStart: 16-80-3419qxnushtqybHAKRFGTINMichael VELEZWayne Hospital PhysiciansStart: 09-23-2024 End: 19-09-5533AmeratJyuskabxwWillie Velez DO Work Phone: [facility] Pain Management [place] Comment on above:Chronic pain syndromeDegeneration of intervertebral disc of lumbar region with discogenic back pain and lower extremity pain (Primary Dx); Lumbar radiculopathy; Chronic pain syndromeLevetiracetam LevelStart: 09-23-2024 End: 59-54-1579Ktmzmn outpatient visit 25 minutesJim Velez DO Work Phone: [facility] Management [place] Comment on above:Myofascial pain syndrome (Primary Dx); DDD (degenerative disc disease), lumbar; Lumbar radiculopathy; Chronic pain syndromeStart: 09-23-2024 End: 11-49-6790lzhgggdefcKKVPZ [facility] Hospitaltart: 09-22-2024 End: 98-51-6280Lqajccrkf department patient visitMATTIndiana University Health La Porte Hospitaltart: 09-22-2024 End: 35-24-9691Ynjifgrkdghpl procedureMenatalie Beard PA-C Work Phone: [facility] Primary Care PhysiciansComment on above:Chronic pain syndromeStart: 76-82-2545kplxnmkgkiBBXRYGSNC WONG [facility] PhysiciansStart: 09-18-2024 End: 43-90-1599Eqvyyssqa department patient visitMATTIndiana University Health La Porte Hospitaltart: 08-29-2024 End: 82-77-0108Doggcanoo department patient visitNo [facility] CareStart: 08-24-2024 End: 64-20-2780Togrjqrpdwkaf procedureJustteresita Elizalde CNP Work Phone: [facility] Pain Management [place] Start: 08-18-2024 End: 02-76-4923Ijawbl OnlyJ. Timothy Robles MD Work Phone: [facility] OrthopedicsComment on above: Pain in both knees, unspecified chronicity (Primary Dx)DDD (degenerative disc disease), lumbar; Lumbar radiculopathy; Chronic pain syndromeStart: 08-08-2024 End: 70-77-6698KnwuljNanda Schuler PA-C Work Phone: [facility] Spine SurgeryComment on above: Lumbar pain (Primary Dx)Start: 08-04-2024 End: 03-37-1234Tjrmxonjgisuc [facility] Primary Care PhysiciansComment on above:Pulse oxStart: 08-02-2024 End: 77-75-0834burzdmmijePKVLP ANN MCCMANUELASouthlake Center for Mental Healthtart: 08-02-2024 End: 19-23-0794Yfwsnj outpatient visit 25 minutesStephany Pelayo PA-C Work Phone: [facility] Primary Care PhysiciansComment on above:Bipolar [...] Hypothyroidism, unspecified type; History of stroke; Seizures ([facility]); Hypercholesterolemia; Urinary incontinence, unspecified type; Gastroesophageal reflux disease, unspecified whether esophagitis present; Family history of pulmonary fibrosis; Candidiasis of breast; Insomnia, unspecified type; Vitamin B12 deficiency; Vitamin D deficiency; Encounter for screening mammogram for malignant neoplasm of breast; Encounter for health-related screeningStart: 08-02-2024 End: 77-56-1375pwxvhlrbynWSVGBValley Health Physicians Start: 07-21-2024 End: 86-36-7283Deamkzlatayfx [facility] Primary Care PhysiciansComment on above:shower chairStart: 07-15-2024 End: 32-12-2996Oorlhr outpatient visit 25 minutesStephany Pelayo PA-C Work Phone: [facility] Primary Care PhysiciansComment on above:Seizures (HCC) (Primary Dx); Chronic nonintractable headache, unspecified headache type; Primary hypertension; Sick sinus syndrome (HCC); Type 2 diabetes mellitus with diabetic polyneuropathy, with long-term current use of insulin ([facility]); Gastroesophageal reflux disease, unspecified whether esophagitis presentStart: 07-15-2024 End: 99-76-5914fsicntxqrwRJXWX ANN MCCMANUELAWayne Hospital [facility] Start: 07-12-2024 End: 74-64-3793CtacbnJfbsqbDiego Elizalde [facility]ACILITY PSYCHIATRIST Work Phone: [facility] Pain Management [place] Comment on above:DDD (degenerative disc disease), lumbar; Lumbar radiculopathy; Chronic pain syndromeStart: 07-05-2024 End: 47-97-5719Fyieze flowsheetMarc D Dolce DPM FACFAS Work Phone: [facility] PODStart: 07-05-2024 End: 88-79-1842Ogufpr flowsheetMarc D Dolce DPM FACFAS Work Phone: [facility] PODStart: 07-05-2024 End: 12-97-3250Wsdyye outpatient visit 15 minutesMarc D Dolce DPM FACFAS Work Phone: noMS NMA PODComment on above:Type II diabetes mellitus with neurological manifestations (CMS/HCC) (Primary Dx); Chronic foot ulcer with fat layer exposed, left (CMS/HCC); Cellulitis of left footStart: 07-05-2024 End: 70-50-0894rsxiamkzigBURO D DOLCENot AvailableStart: 06-10-2024 End: 17-12-9064RqsgovVzevvbDiego Elizalde [facility]ILITY PSYCHIATRIST Work Phone: [facility] Pain Management [place] Comment on above:Chronic pain syndrome; DDD (degenerative disc disease), lumbar; Lumbar radiculopathyStart: 06-06-2024 End: 67-45-8012Bfgnufexddiqu procedureJessica Jonathan [facility] Primary Care PhysiciansComment on above:incontinence suppliesStart: 05-31-2024 End: 84-99-2152Ooocwmerjvewf procedureMegan Yusra DOMKettering Health Greene Memorial Physicians Primary Care PhysiciansStart: 05-27-2024 End: 22-45-7719SbnfdjJsknaLeny Pelayo PA-C Work Phone: [facility] Primary Care PhysiciansComment on above:Bipolar 1 disorder (HCC); Insomnia, unspecified typeStart: 05-23-2024 End: 43-65-9481Xkabrgyng department patient visitMATTIndiana University Health La Porte Hospitaltart: 05-13-2024 End: 51-11-6477Cusqke outpatient visit 25 minutesJustteresita Elizalde CNP Work Phone: [facility] Pain Management [place] Comment on above:Lumbar radiculopathy (Primary Dx); Chronic pain syndrome; DDD (degenerative disc disease), lumbar; Encounter for monitoring opioid maintenance therapy; Other chronic pain; Myofascial pain syndromeStart: 05-13-2024 End: 58-46-2110gfdhoauwkvESRAWAllegra PELAYOWayne Hospital Physicians Start: 04-28-2024 End: 40-06-4478WcfaywZbekqmDiego Elizalde CNP Work Phone: [facility] Pain Management [place] Comment on above:Chronic pain syndromeStart: 04-26-2024 End: 28-11-9858kkwytzmxpuEMU [facility] Centertart: 04-26-2024 End: 17-99-3320Piqapxretd and management of inpatientAnudeep Miah STEVENS Work Phone: [facility] Unit 4 SouthStart: 04-12-2024 End: 26-66-5601GmefetEnfhvvpegEduardo Velez DO Work Phone: [facility] Pain Management [place] Comment on above:DDD (degenerative disc disease), lumbar; Lumbar radiculopathyChronic pain syndromeStart: 03-30-2024 End: 88-09-4344Sahrdwwokxmxe procedureSlinda Adams LPKettering Health Greene Memorial Physicians EndocrinologyComment on above:[facility] HospitalStart: 03-25-2024 End: 69-45-3154TqmuzfNanda Pelayo PA-C Work Phone: [facility] Primary Care PhysiciansStart: 03-24-2024 End: 60-51-7484Gnfmvlvybu and management of inpatientDatamika Aaron MD Work Phone: [facility] Surgical 2 [place]Start: 03-24-2024 End: 53-83-8730YhrjbjNanda RUBALCAVA-Isabell Work Phone: [facility] Primary Care PhysiciansStart: 03-22-2024 End: 76-50-3855Bhjaxe outpatient visit 25 minutesStephany Pelayo PA-C Work Phone: [facility] Primary Care PhysiciansComment on above:Primary hypertension (Primary Dx); Diarrhea, unspecified type; Abdominal cramping; Abdominal wound dehiscence, initial encounter; Bipolar 1 disorder (HCC); Seizures (HCC); Chronic pain of both knees; Urinary incontinence, unspecified type; Candidiasis; Abnormal pigmentation of skinStart: 03-22-2024 End: 31-68-1203DkydzbOxixudurhEduardo Velez DO Work Phone: [facility] Pain Management [place] Comment on above:Chronic pain syndromeStart: 03-08-2024 End: 90-14-3657BhrekyDdcxjmDiego Elizalde CNP Work Phone: [facility] Pain Management [place] Comment on above:DDD (degenerative disc disease), lumbar; Lumbar radiculopathyStart: 02-11-2024 End: 38-26-8749sfphjssidjBQWOOCoulee Medical Centertart: 02-11-2024 End: 46-42-3286Zzvkvg outpatient visit 25 minutesStephany Pelayo PA-C Work Phone: [facility] Primary Care PhysiciansComment on above:Diabetic [...] without complication; Need for vaccinationStart: 02-08-2024 End: 14-22-8672CcvrgaCwdhtoxngxEncompass Health Physicians PsychComment on above:Bipolar 1 disorder (HCC); Insomnia, unspecified typeStart: 02-04-2024 End: 33-39-8550Wvekao BladimirJim Pearsonay Agustin DO Work Phone: [employer] [facility] Pain Management [place] Comment on above:DDD (degenerative disc disease), lumbar; Lumbar radiculopathyStart: 02-03-2024 End: 64-71-7483MzwahrWsbqjraix Wong Lewis DO Work Phone: [employer] [facility] Pain Management [place] Comment on above:DDD (degenerative disc disease), lumbar; Lumbar radiculopathyStart: 02-02-2024 End: 25-66-7369Nairtm outpatient visit 25 minutesJim Pearsonjesus Velez DO Work Phone: [employer] [facility] Pain Management [place] Comment on above:Chronic pain syndrome (Primary Dx); DDD (degenerative disc disease), lumbar; Lumbar radiculopathy; Other chronic pain; Myofascial pain syndrome; Debilitated patientStart: 01-27-2024 End: 48-51-4195ciggtflloqUzmlamonFormerly [facility] Primary Care Comment on above:Chronic pain syndromeStart: 01-27-2024 End: 45-63-1796Nhrdvlhkukfx care manage srvc 14 day dischargeRafaela Medrano [facility]ILITY PSYCHIATRIST Work Phone: [facility] Primary Care PhysiciansComment on above:Diabetic ulcer of right foot associated with type 2 diabetes mellitus, unspecified part of foot, unspecified ulcer stage (HCC) (Primary Dx); Primary hypertension; SOLO (acute kidney injury) ([facility]); Hypothyroidism, unspecified type; Hyperlipidemia, unspecified hyperlipidemia typeStart: 01-12-2024 End: 29-71-0453Kmodvdellz and management of inpatientAnudekarthik Dooley MD Work Phone: [facility] Medical Unit 2 SouthStart: 01-12-2024 End: 98-26-4612Wvmtml outpatient visit 25 minutesStephany Pelayo PA-C Work Phone: [facility] Primary Care PhysiciansComment on above:Diabetic ulcer of left great toe (HCC) (Primary Dx)Start: 01-11-2024 End: 13-15-7199CqkpawXgpulikfl Holloway Lewis Work Phone: [employer] [facility] Pain Management [place] Comment on above:DDD (degenerative disc disease), lumbar; Lumbar radiculopathy; Muscle spasms of both lower extremitiesStart: 01-09-2024 End: 31-95-4026Yizmygjgr department patient visitLADecatur County Memorial Hospitaltart: 12-21-2023 End: 28-29-5427ZultmpXuaeusDiego Elizalde CNP Work Phone: [employer] [facility] Pain Management [place] Comment on above:Chronic pain syndromeStart: 12-14-2023 End: 23-43-3436Xyikusuzrluxt procedureRafaela Castillo [facility] Physicians Primary CareComment on above:nebulizer suppliesStart: 12-08-2023 End: 78-01-9719Xjkpee outpatient new 45 minutesStephany Pelayo PA-C Work Phone: [employer] [facility] Pain Management [place] Comment on above:Chronic pain syndrome (Primary Dx); Muscle spasms of both lower extremities; DDD (degenerative disc disease), lumbar; Lumbar radiculopathy; Other chronic pain; Myofascial pain syndrome; Debilitated patientStart: 12-08-2023 End: 84-38-0602ZnkxqaOhqtd L Huan [facility] Endocrinology Start: 12-07-2023 End: 96-19-9771Wgxwzcimc department patient visitLADecatur County Memorial Hospitaltart: 12-07-2023 End: 06-61-5837GfwkjwZwblv L Huan [facility] Endocrinology Comment on above:Type 2 diabetes mellitus with diabetic polyneuropathy, with long-term current use of insulin (HCC)Start: 12-03-2023 End: 16-64-3448JpgyqrGbqnarwTerry Sanchez MD Work Phone: [facility] EndocrinologyComment on above: Type 2 diabetes mellitus with diabetic polyneuropathy, with long-term current use of insulin (HCC)Start: 12-02-2023 End: 68-66-0755BcvfxiRnsyyqx Ann Ishler [facility]icians Endocrinology Comment on above:Type 2 diabetes mellitus with diabetic polyneuropathy, with long-term current use of insulin (HCC) (Primary Dx)Start: 12-02-2023 End: 47-39-8027Axpbfr outpatient new 60 minutesStephany Pelayo PA-C Work Phone: [facility] EndocrinologyComment on above: Type 2 diabetes mellitus with diabetic polyneuropathy, with long-term current use of insulin (HCC) (Primary Dx); Proliferative diabetic retinopathy associated with type 2 diabetes mellitus, unspecified laterality, unspecified proliferative retinopathy type (HCC); Dyslipidemia; Essential hypertension; Obesity, unspecified classification, unspecified obesity type, unspecified whether serious comorbidity presentStart: 12-01-2023 End: 38-38-4977Bjhwdg outpatient visit 25 minutesStephany Pelayo PA-C Work Phone: [facility] Primary CareComment on above: Primary hypertension (Primary Dx); Upper respiratory tract infection, unspecified type; Chronic obstructive pulmonary disease, unspecified COPD type (HCC); Family history of pulmonary fibrosis; Retinal hemorrhage of left eyeStart: 17-91-5720QodrtfNtawjJustice Pelayo PA-C Work Phone: [facility] Primary CareComment on above: Muscle spasms of both lower extremities; Type 2 diabetes mellitus with diabetic polyneuropathy, with long-term current use of insulin (HCC)Start: 11-09-2023 End: 86-49-8021Gsguwh outpatient new 45 minutesAnders London MD Work Phone: [facility] Ear InstituteComment on above:Vision loss of left eye (Primary Dx); Ocular hypertension of left eye; Proliferative diabetic retinopathy of left eye associated with type 2 diabetes mellitus, unspecified proliferative retinopathy type; Nonproliferative diabetic retinopathy of right eye; Pseudophakia; Dry eye syndrome of bilateral lacrimal glandsStart: 50-35-9535GshewbNknwdbqoAries Garcia MD Work Phone: [facility] PsychStart: 10-29-2023 End: 67-21-7462Rgxpbt Homar Gloria [facility] Primary Care Start: 60-37-8569Zjgvcw Live Pelayo PA-C Work Phone: [facility] Primary CareComment on above: Subacute cough (Primary Dx); Family history of pulmonary fibrosisStart: 27-52-5650Hwmfnz Ladarius Castillo DPM Work Phone: [facility]Start: 10-13-2023 End: 44-13-3360Biiees outpatient visit 25 Heather Pelayo PA-C Work Phone: [facility] Primary CareComment on above: Primary hypertension (Primary Dx); Subacute cough; RUQ abdominal pain; Type 2 diabetes mellitus with diabetic polyneuropathy, with long-term current use of insulin (HCC); Family history of pulmonary fibrosisStart: 10-07-2023 End: 29-41-4315Aurghu outpatient visit 25 Dane Garcia MD Work Phone: [facility] PsychComment on above:Bipolar 1 disorder (HCC) (Primary Dx); Post traumatic stress disorder (PTSD); Generalized anxiety disorder; Insomnia, unspecified typeStart: 99-93-5725Ygnphkbyyxrgi procedureMagnolia Chavira LPKettering Health Greene Memorial Physicians PsychStart: 56-02-9091QznjuoWrashJustice Pelayo PA-C Work Phone: [facility] Primary CareComment on above: Muscle spasms of both lower extremitiesStart: 75-04-2929Zgslor Ladarius Castillo DPM Work Phone: [facility]HealthComment on above:Right foot ulcer, with fat layer exposed (HCC) (Primary Dx)Start: 09-16-2023 End: 28-99-1389Vhrxmo outpatient visit 40 minutesSuarkayyya Brittaney Campos MD Work Phone: [facility] NeurologyComment on above: Hearing loss of left ear, unspecified hearing loss type (Primary Dx); Lacunar stroke (HCC); Seizure (HCC)Start: 42-04-5867JrkpiyFizjolnngh Musgrave [facility] Physicians PsychStart: 56-03-3321Hnqjfjwewkfog procedureJeayana Castillo [facility] Physicians Primary CareComment on above:DMEStart: 54-62-6091OzkcniWtqcfuieg Gayheart [facility] Physicians Primary CareComment on above:Muscle spasms of both lower extremitiesStart: 09-03-2023 End: 66-12-9144Upiyhzew preventive med est patient 40-64yrsLaura Leann Pelayo PA-C Work Phone: [facility] Primary CareComment on above: Chronic pain syndrome (Primary Dx); Muscle spasms of both lower extremities; Urinary incontinence, unspecified type; Chronic nonintractable headache, unspecified headache type; Chronic obstructive pulmonary disease, unspecified COPD type (HCC); Type 2 diabetes mellitus with diabetic polyneuropathy, with long-term current use of insulin (HCC); Diabetic peripheral neuropathy ([facility]); Diabetic ulcer of right foot associated with type 2 diabetes mellitus, unspecified part of foot, unspecified ulcer stage ([facility]); Hypothyroidism, unspecified type; Primary hypertension; Hypercholesterolemia; S/P placement of cardiac pacemaker; Seizures ([facility]); Bipolar 1 disorder ([facility]); Gastroesophageal reflux disease, unspecified whether esophagitis present; Vitamin D deficiency; Vitamin B12 deficiency; Cigarette nicotine dependence without complicationStart: 08-26-2023 End: 90-10-2127Jaidtsofy department patient visitFloyd Mercado MD Work Phone: [facility] Emergency DepartmentStart: 87-01-2329UryoqzMyggmmvMatthew Medrano CNP Work Phone: [facility] Primary CareComment on above: Muscle spasms of both lower extremitiesStart: 82-27-4508CmjqweVmsewleMatthew Medrano CNP Work Phone: [facility] Primary CareComment on above: Type 2 diabetes mellitus with diabetic polyneuropathy, with long-term current use of insulin (HCC) (Primary Dx); Muscle spasms of both lower extremitiesStart: 08-03-2023 End: 23-56-8930Bbwkif outpatient new 60 minutesLabryan Pelayo PA-C Work Phone: [facility] PsychComment on above:Post traumatic stress disorder (PTSD) (Primary Dx); Bipolar 1 disorder (HCC); Insomnia, unspecified type; Generalized anxiety disorderStart: 06-22-2023 End: 09-09-7999Drijip outpatient visit 25 minutesHarris Bhat MD Work Phone: [facility] Primary CareComment on above: Bipolar 1 disorder (HCC) (Primary Dx); Type 2 diabetes mellitus with diabetic polyneuropathy, with long-term current use of insulin (HCC); Seizures (HCC); Incontinence in femaleStart: 11-57-8553HitpviXnsnyliee GayIndiana University [facility] Physicians Primary CareComment on above:Bipolar 1 disorder (HCC) (Primary Dx) Start: 10-79-4851bthvomunckJjd [facility] Physicians Primary Care Comment on above:High Risk Outreach for High RiskStart: 05-15-2023 End: 65-23-6255Ydvrbud Wasserman [facility] [place] Home HealthComment on above:SN HH NON ADMIT VISITStart: 05-15-2023 End: 77-16-3115Tvjluz outpatient visit 25 minutesStephany Pelayo PA-C Work Phone: [facility] Physicians Primary CareComment on above: Left-sided weakness (Primary Dx); Visual loss, left eye; Acute effusion of left ear; Diabetic ulcer of right foot associated with type 2 diabetes mellitus, unspecified part of foot, unspecified ulcer stage (HCC); Gastroesophageal reflux disease, unspecified whether esophagitis present; Weight gainStart: 09-03-6876wjiiqrdigwUksfmp [place] [facility] Physicians Primary CareComment on above:High Risk Outreach for High RiskStart: 05-15-2023 Documentation procedureJeayana Jonathan [facility] Physicians Primary Care Comment on above:hosp bedStart: 00-27-3340tfvpjndydjPlswlnnd [facility] IntermediateStart: 80-84-9792nxysnagbhhYOXQYAllegra PELAYO HomeHealthStart: 05-06-2023 End: 69-03-0119Ugthct outpatient new 45 minutesLaura Leann Pelayo PA-C Work Phone: [facility] Physicians Primary CareComment on above: Non-recurrent acute suppurative otitis media of left ear without spontaneous rupture of tympanic membrane (Primary Dx); Type 2 diabetes mellitus with diabetic polyneuropathy, with long-term current use of insulin (HCC); Diabetic ulcer of right foot associated with type 2 diabetes mellitus, unspecified part of foot, unspecified ulcer stage ([facility]); Diabetic peripheral neuropathy ([facility]); Hypertensive urgency; Chronic obstructive pulmonary disease, unspecified COPD type ([facility]); Chronic chest pain; S/P placement of cardiac pacemaker; Hypothyroidism, unspecified type; Seizures ([facility]); Bipolar 1 disorder ([facility]); Insomnia, unspecified type; Gastroesophageal reflux disease, unspecified whether esophagitis present; Generalized weakness; Muscle spasms of both lower extremities; Vitamin B12 deficiency; Vitamin D deficiency; Incontinence of feces, unspecified fecal incontinence type; Cigarette nicotine dependence without complication; Screening for cervical cancer; Encounter for screening mammogram for malignant neoplasm of breast; Encounter for vaccinationStart: 04-29-2023 End: 06-57-5435Ofqz Coral Colin OTGaioAkron Children'S Hospital Home HealthComment on above:OT NON-OASIS/DISCIPLINE DISCHARGEStart: 04-29-2023 End: 05-17-0503Xavs Daylin Prather PTOhioHealth Home HealthComment on above: PT NON-OASIS/DISCIPLINE DISCHARGEStart: 75-28-7216Fceobud Pratt PTA [facility] Home HealthComment on above:PATIENT RESOURCE SPECIALIST MISSED VISITStart: 04-24-2023 End: 63-03-5399Knwj Karlo Jameson OTAGaioAkron Children'S Hospital Home HealthComment on above:RETANA MISSED VISITPTA MISSED VISITStart: 04-23-2023 End: 47-20-7231Gwsi Karlo Jameson OTAOhioHealth Home HealthComment on above:RETANA MISSED VISITStart: 04-22-2023 End: 53-99-1314Ptoq Harvinder Wilcox RNOhioHealth Home HealthComment on above:SN HH OASIS DISCHARGEStart: 04-21-2023 End: 30-66-8048Vpmw visitNikko Pratt PTAOhioHealth Home HealthComment on above: PATIENT RESOURCE SPECIALIST MISSED VISITCASE COMMUNICATIONCARE CONFERENCEStart: 04-20-2023 End: 34-11-1755Ilza visitAma Wilcox RNOhioHealth Home HealthComment on above:SN MISSED VISITStart: 01-35-4046Vgff visitSharla Paulino PSAOhioHealth Home HealthComment on above:ELIGIBILITY CONSULTANT MISSED VISITStart: 04-15-2023 End: 89-15-5400Kock visitTahollie Arias PTAOhioHealth Home HealthComment on above: CASE COMMUNICATIONSN HH ROUTINE VISITCOTA ROUTINE VISITStart: 04-14-2023 End: 24-25-1263Yzxd visitDajulius Boston PSAOhioHealth Home HealthComment on above:ELIGIBILITY CONSULTANT HH ROUTINEStart: 04-14-2023 End: 23-41-1096Wnjo visitNikko Pratt PTAOhioHealth Home HealthComment on above: PATIENT RESOURCE SPECIALIST ROUTINE VISITOT INITIAL EVALUATIONStart: 50-49-8881Mjow Coral Colin OTOhioHealth Home HealthComment on above:CASE COMMUNICATIONStart: 04-09-2023 End: 59-45-5205Wqcw visitDajulius Boston PSAOhioHealth Home HealthComment on above:ELIGIBILITY CONSULTANT HH ROUTINEStart: 04-08-2023 End: 73-91-0053Szgg Ranulfo Carrera LPNOhioHealth Home HealthComment on above:DENTAL HYGIENE ADMINISTRATIVE ASSISTANT HH ROUTINEStart: 04-08-2023 End: 10-42-2506Eisx visitLisa Padron PTOhioHealth Home HealthComment on above: PT INITIAL EVALUATIONStart: 70-61-8194Kzosbud Padron PTOhioHealth Home HealthComment on above:CASE COMMUNICATIONHHA MISSED VISITStart: 04-01-2023 End: 49-64-2004Jkzv visitBonjose antonio Wick [facility] CenterioAkron Children'S Hospital Home HealthComment on above:SN HH OASIS START OF CAREStart: 26-16-5260txxwuuuawoSWFXDH [facility] HOSPITALRiDayton Children's Hospital HospitalStart: 03-30-2023 End: 35-22-2726noxqwvpptiAEEQCF SHUHHomeHealthStart: 03-29-2023 End: 28-20-3414Eesbxwpfb department patient visitDatamika Aaron MD Work Phone: [facility]art: 02-17-2023 End: 04-45-2830Enwxganrrb and management of inpatientKaren Sairakodak Pickering DO Work Phone: [facility] Surgical 2 NorthStart: 02-09-2023 End: 53-03-5322Ugxsfg outpatient new 20 minutesBrent Roman Christianson DO Work Phone: [facility] Physicians OrthopedicsComment on above: Strain of right hamstring, initial encounter (Primary Dx); Strain of right knee, initial encounter; Other specified diabetes mellitus with other specified complication, unspecified whether alf insulin use (HCC)Start: 27-57-7372Fafsul OnlyBreankita Christianson DO Work Phone: [facility] Physicians OrthopedicsComment on above: Right knee pain, unspecified chronicity (Primary Dx)Start: 89-03-3740rkzzemtgnv No DoctorFacility:AMCLStart: 95-37-5815Awoabormir and management of inpatient RAFAELA KWADWO .Facility:H1Zfuye: 10-11-2022 End: 03-99-4053ttjvcnnmmwIY DOCTOR MISCFacility:G8Zjzxn: 55-80-9205Khjfeesnp department patient visitUNKNOWN PROVIDERFacility:METROHealthStart: 10-06-2022 End: 52-91-2442Kuupvwnon department patient visitUNKNOWN PROVIDER Facility:[facility]ENTERHealthStart: 10-06-2022 End: 09-90-5894Lriiaptqw department patient visitJocelyn Bowne MD Work Phone: [facility] Emergency MedicineComment on above:Chart (Transfer from [facility] for MRI)Start: 10-06-2022 End: 89-58-2655Vpkqzlrdm department patient visitPreston Lugo [facility] Start: 09-18-2022 End: 05-43-8655uadaaeltrcUYYFMS RODRIGUEZ .Facility:K6Jomss: 09-12-2022 End: 66-08-1402Zshwtdvnsv and management of inpatientPepe Echols [facility] Start: 09-12-2022 End: 70-89-9579Alrlrhony to same day surgery centerNP-C Laurent Franco Work Phone: [facility] TrihealthStart: 09-12-2022 End: 15-25-5167bodflhmlzzBF-C Laurent Franco Work Phone: [facility] Work Phone: Start: 09-09-2022 End: 97-82-6430vtbimvyclsQPZPV LEWIS .Facility:S7Tosfx: 09-07-2022 End: 63-88-7204mqzaydfobbVB DOCTOR MISCFacility:O3Sihvl: 09-02-2022 End: 84-41-0500xsudjwgqcgUlqkfhv [place] Other [place] [employer] Other Start: 91-90-2796Tmuubrfgi encounterShameka Romero [facility] Vascular SurgeryStart: 08-29-2022 End: 90-54-2195Efqvyzj encounter procedureLAURENT FRANCO [facility] Start: 08-20-2022 End: 27-28-4690Jsylmbyhhq and management of inpatientNP-C Kip Soviak Work Phone: [facility] [place] [facility] Work Phone: Start: 08-20-2022 End: 43-76-0410Ftcrtrsypm and management of inpatientNP-C Kip Sorandyak Work Phone: [facility] [place] [facility] Work Phone: Start: 37-06-2688edkldtdzvsv encounterNP-C Kip W Sorandyak Work Phone: [facility] Work Phone: Start: 08-19-2022 End: 46-66-8205Ydacafmnu department patient visitSantos Velez [facility] Start: 42-88-9527bhwwnrsvtwMIYI TAMLYN .Facility:H1 Start: 08-02-2022 End: 34-00-3481Wvrdqrmtof and management of inpatientDR POLO MILTON Facility:E9Onifp: 07-30-2022 End: 08-02-8256lfmssbeekzST SACHI ROQUE .Facility:X6Wgpgz: 07-10-2022 End: 62-73-3146jvusiqmntbUSTMYL RODRIGUEZ .Facility:Z8Mzwht: 06-21-2022 End: 44-03-3813leceiuhhzpSU ROBERT LUX .Facility:V7Uhfod: 06-11-2022 End: 69-14-9599vkkghyodrfNNN BROWNEFacility:N2Faher: 06-02-2022 End: 66-12-1354Cgjuwkzqk department patient visitAstrit Nicole Jose MiguelKe[facility]an Private Hospital Start: 05-15-2022 End: 53-53-6284Nbmtfxfti department patient visitSantos Velez [facility] Start: 04-20-2022 End: 16-24-0186zoueubcoekSMX BROWNEFacility:S5Xxxby: 04-06-2022 End: 10-95-3822Awxweairkx and management of inpatientAshutosh MENARD [facility] Start: 03-31-2022 End: 90-44-0831izupnrgtkvXVFXGF RODRIGUEZ .Facility:C9Kbpwj: 03-04-2022 End: 66-31-6000rwnotcfaebSH DOCTOR MISCFacility:Z7Cwrya: 02-27-2022 End: 57-30-6424Knzjpfaoh department patient visitGui Schafer [facility] Start: 02-21-2022 End: 45-64-0468Cdqfemqcy department patient visitIrajtiffanie MaldonadoMaris Velez [facility] Start: 02-17-2022 End: 70-15-0208pqanvoqrdoAZ MICHI MENDEZ .Facility:A4Ykhzg: 02-06-2022 End: 34-61-0543qjguyiffskPL POLO KLINEERFacility:V5Irptb: 01-24-2022 End: 63-45-2060Joytglgnv department patient visitPreston Lugo [facility] Start: 01-09-2022 End: 89-08-1053HgtgqogwrpdCpkcte P LISAKeenan Private Hospital Start: 01-01-2022 End: 07-91-1880xinwvdtrqqBHFGN PARKERFacility:N1Culdf: 01-01-2022 End: 14-46-4170Mqawtlo encounter procedureBreanna Gu [phone]-HonlzOur [facility] Start: 12-12-2021 End: 88-55-3224Ppdmytk encounter Dc Gu [phone]-EaumfOur [facility] Of [facility] Start: 12-08-2021 End: 50-31-8588Svafknbcy department patient visitCEM MARIOAvita Health System Ontario Hospitaltart: 12-08-2021 End: 91-39-8954Tzxmeaoxb department patient visitAntoine Sosa MD Work Phone: [facility] EDComment on above:Other insomnia (Primary Dx)Start: 12-08-2021 End: 66-48-0804Sfxkfigbs department patient visitSantos Moreno [facility] Start: 12-04-2021 End: 43-32-3391vhpunqlariOG DOCTOR MISCFacility:P4Bqgkt: 12-02-2021 End: 02-26-2419Hgzihcy encounter procedureBreanna Gu [phone]-KjyjcOur Lady Of [facility] Start: 11-28-2021 End: 78-82-1927vpdhpmhyueHE DOCTOR MISCFacility:L8Cppkv: 11-27-2021 End: 10-39-1969Hmptafd encounter procedureBreanna uG [phone]-UakatOur Lady Of [facility] Start: 11-04-2021 End: 63-46-6996Xzwtjdbiyh and management of inpatientAhmad MousscolinKeenan Private Hospital Start: 10-30-2021 End: 17-32-0524Kvr Drop offBreanna Gu [facility] Start: 10-10-2021 End: 31-93-2161Dzr-admission assessmentNancy GUTIERREZ [facility] Start: 10-09-2021 End: 00-89-2517Npiidibxi department patient visitSantos JoelMaris Velez [facility] Start: 10-03-2021 End: 46-42-1475Jhbrabp encounter procedureBreanna Gu [facility] Start: 09-30-2021 End: 52-87-6541Gukyxnu encounter procedureBreanna Gu [phone]-LptmpOur [facility] Start: 09-30-2021 End: 99-80-3280Rmelhtfvmucpl examination doneBreanna Gu [phone]-RmgosOur Lady Of [facility] Start: 09-27-2021 End: 14-36-8887Xnuyqir encounter procedureSoto BoxKeenan Private Hospital Start: 09-02-2021 End: 49-05-4584Zzy-admission assessmentAmancecilia GUTIERREZ [facility] Start: 09-02-2021 End: 53-29-4520Aetvfey encounter Balwinder Abbott [facility] Start: 08-29-2021 End: 17-90-1777Tygpkcq encounter procedureBreanna Gu [facility] Start: 06-14-2021 End: 00-29-0970pyncyewuhqZkiown Dymond Other [place] [employer] Other Start: 98-21-5474Ohgzyc outpatient visit 15 minutes Herlinda AsimG [facility] ClydeStart: 08-02-2020 End: 57-04-2232Xlsxfd OnlyKathleen Saira Baxter Work Phone: [facility] Start: 06-03-2020 End: 86-51-6822Djwudskjxr and management of inpatientKATADALGISA [facility] Specialty Hospitaltart: 04-15-0838Ofzxyiav care ill/injured patient init 30-74 minDavilauren Hankins Work Phone: [facility]Start: 06-03-2020 End: 90-90-8860Nurdsjdkoq and management of inpatientDavid Keshav Hankins Work Phone: [facility] on above:Type 2 diabetes mellitus with left diabetic foot infection (HCC) (Primary Dx); Diabetic infection of left foot (HCC); Abscess of chinStart: 08-10-2019 End: 68-45-8519Uhcdeuxfu department patient visitANDREA Thuy CAMPIFacility:[facility] Start: 11-29-2018 End: 96-74-7931Zvbsjzg encounter procedureMattHolzer Health System [facility] Start: 09-07-2018 End: 44-24-9185Jihbedtzkn and management of inpatientDeaconess [facility] Start: 95-48-2957Riwaocsfnm RecurringRittEffingham Hospital [facility] Start: 07-23-2018 End: 50-80-7340Bssqnrvrgg RecurringDeaconess Hospital [facility] Start: 06-25-2018 End: 23-41-6222Tbgpsrs encounter procedureNONE PHYSICANFacility:Start: 05-04-2018 End: 04-70-7173Faldgoz encounter procedureMattHolzer Health System [facility] Start: 09-01-2017 End: 46-75-5593Rbyqukklu department patient visitCEM [facility] HospitalStart: 07-17-2017 End: 49-78-2240SzukuiupofHFGVYVX ALLAN SADAAHMETSumma Health Wadsworth - Rittman Medical CenterStart: 06-26-2017 End: 42-80-3154Klippytac department patient visitMichi San Work Phone: [facility] Emergency DepartmentStart: 06-23-2017 End: 12-76-6575Uyzkrlm encounter procedureMattFairfax [facility] Start: 02-16-2017 End: 70-14-2912Gsczgbzrg department patient visitCHMURIEL [facility] HospitalStart: 02-09-2017 End: 02-63-9005Wnxpuaur ReferredMattHolzer Health System [facility] Start: 01-16-2016 End: 60-59-0072Reopmtoll to day surgeryH[facility] Start: 10-02-2012 End: 18-35-3494Okgsvnivb department patient visitMattFairfax Hospital [facility] Start: 04-23-2012 End: 53-81-8573Ldplupcm ReferredMattFairfax Hospital [facility] Start: 12-23-2009 End: 85-94-2335Hcrabqqd ReferredMattFairfax Hospital [facility] Start: 12-21-2002 End: 06-74-8526Oziaqmbio department patient visitMattw [facility] Start: 08-25-2002 End: 31-76-6590Zouijttjk department patient visitMattFairfax Hospital [facility] Start: 06-27-2002 End: 84-87-7102Hradgyu encounter procedureMatthew WidmerFirelands [facility] Start: 05-08-2002 End: 66-99-3770Echtgfoxt department patient visitMattEast [facility] Start: 10-25-2001 End: 30-41-3916Dhwmsxq encounter procedureMaOhioHealth [facility] Start: 10-27-1999 End: 21-31-1050Cektcsjbe department patient visitMattHolzer Health System [facility] Start: 09-10-1999 End: 76-08-9597Qfwulxldj department patient visitMattHolzer Health System [facility] Procedures DateProcedureProcedure DetailPerforming ClinicianStart: 04-81-6809ERUS OTHER ORDERSChristian Wei Kumar MD Work Phone: start: 02-02-2025 End: 74-22-8094Olob bld gluc mntr dev cleared fda spec home useSergio Resendez MD Work Phone: Start: 37-50-7607Nfawo cultureDefiance Jonh DUMONT Work Phone: Start: 51-51-4954ROHHVNI Olive Aguirre MD Work Phone: Start: 89-28-3442HGTXDGR GLUCOSEElda Aguirre MD Work Phone: Start: 84-27-9653Zmisb metabolic panel calcium total Hanna Mari MD Work Phone: Start: 66-13-4626YWXBLMY Olive Aguirre MD Work Phone: Start: 89-12-0197MWTUEUD Olive Aguirre MD Work Phone: Start: 11-05-3388ZAJXHAK Olive Aguirre MD Work Phone: Start: 56-50-8866XGYSTAY GLUCOSEBryrosaura Aguirre MD Work Phone: Start: 17-65-1748Fiyjg metabolic panel calcium total Hanna Kamaljit STEVENS Work Phone: Start: 95-85-4786LDIIDBP GLUCOSEVanessa Vargas MD Work Phone: Start: 82-68-9485MEILDNV GLUCOSEVanessa Vargas MD Work Phone: Start: 33-67-1726TMFGUDH GLUCOSEVanessa Vargas MD Work Phone: [phone]: 12-03-2024 End: 76-79-4861IVIMURF GLUCOSEVanessa Vargas MD Work Phone: Start: 12-03-2024 End: 26-52-7649CPHLPLP GLUCOSEVanessa Vargas MD Work Phone: Start: 46-97-6127IHAYQYB GLUCOSEVanessa Vargas MD Work Phone: Start: 12-03-2024 End: 73-15-3148FSFOQRV GLUCOSEVanessa Vargas MD Work Phone: Start: 12-03-2024 End: 87-97-0943Kqpyfmlmuwf panelLianne Mccormick MD Work Phone: Start: 12-03-2024 End: 29-08-1892BPWYDFN GLUCOSEVanessa Vargas MD Work Phone: Start: 12-03-2024 End: 21-48-4284PDPEZCJ GLUCOSEVanessa Vargas MD Work Phone: Start: 31-22-4989Qqibg depression screening assessment Addie Chavira MAStart: 92-42-2278Hxuhkc-up visitFollow-upLAURA LEANN PELAYOStart: 38-75-4160Vaqaynhofbnfk metabolic panelLaura Leann LEONARDC Work Phone: Start: 42-48-8775Lugpm panelLaura Leann Pelayo PA-C Work Phone: Start: 87-21-9659Msaaqug measurementSher Dianne Rizzo MD Work Phone: Start: 65-10-3596Pglilrg measurementGeneric [facility] Work Phone: Start: 60-87-1031Xcoso function panelSher Dianne Rizzo MD Work Phone: Start: 87-66-7540Upwgavh measurementGeneric [facility] Work Phone: Start: 86-85-6791Gkxbhvv measurementGeneric [facility] Work Phone: Start: 04-09-4428Cayxtff measurementGeneric [facility] Work Phone: Start: 84-40-0160Zaosqlp measurementGeneric [facility] Work Phone: Start: 43-23-5485Ijaex function panelSher Dianne Rizzo MD Work Phone: Start: 21-78-2993Zzszegk measurementGeneric [facility] Work Phone: Start: 33-04-9226Ptghhbd measurementGeneric [facility] Work Phone: Start: 19-55-1679Lkokdfl measurementGeneric [facility] Work Phone: Start: 04-98-5883Tftiedo measurementGeneric [facility] Work Phone: Start: 92-55-4615Tdhwzhb measurementGeneric [facility] Work Phone: Start: 57-82-6928Ywyld function panelSher Dianne Rizzo MD Work Phone: Start: 85-82-3989Ndbsqax measurementGeneric [facility] Work Phone: Start: 56-67-2409Sfitv foot complete minimum 3 views Jacoby Dooley MD Work Phone: Start: 29-59-0437Jutbq metabolic panel calcium total Jacoby Dooley MD Work Phone: Start: 15-58-0544U-reactive proteinJacoby Dooley MD Work Phone: Start: 54-70-6469PBBW TATO Dooley MD Work Phone: [phone]: 72-94-7661VHZXUQCE Adalberto Dooley MD Work Phone: Start: 96-94-0762HYFKU BLUE Adalberto Dooley MD Work Phone: Start: 98-51-1004HJUSA TATO Dooley MD Work Phone: Start: 05-01-8848HPBC TATO Dooley MD Work Phone: Start: 42-85-4213TJDZBZX Aristides Dooley MD Work Phone: Start: 41-94-0600Schua function panelTodd Corbey DO Work Phone: Start: 70-20-4477Rsnhe function panelTodd Corbey DO Work Phone: Start: 48-93-6281Dnninog measurementGeneric [facility] Work Phone: Start: 42-33-6860Yfqep function panelTodd Corbey DO Work Phone: Start: 48-80-8156Qazpnul measurementGeneric [facility] Work Phone: Start: 50-75-0635Whufw foot complete minimum 3 views Shameka Castillo DPM Work Phone: Start: 04-01-2024 End: 41-60-5382Mwt bact xcpt urine blood/stool aerobic isolMattlori Castillo DPM Work Phone: Start: 04-01-2024 End: 56-07-8585Mlfzlfbhsd toe metatarsophalangeal jointMattlori Castillo DPM Work Phone: Start: 75-08-8215Vzvlpil measurementGeneric [facility] Work Phone: Start: 54-36-8842Fsdve function panelTodd Corbey DO Work Phone: Start: 85-52-3538Bv lower extremity w/o contrast materialMattlori Castillo DPM Work Phone: Start: 96-55-8363Do abdomen & pelvis w/o contrast materialMiryam Stephany Rajput MD Work Phone: Start: 69-44-6770Xzbgi function panelTodd Corbey DO Work Phone: Start: 35-11-0448Bgxvbfo measurementGeneric [facility] Work Phone: Start: 56-61-4305Ucbugxw measurementGeneric [facility] Work Phone: Start: 43-01-1825Alfppyb measurementGeneric [facility] Work Phone: Start: 81-39-8101Hxixhxf measurementGeneric [facility] Work Phone: Start: 98-86-5729Cnsfs function panelTodd Corbey DO Work Phone: Start: 72-39-5102Vuxdjef measurementGeneric [facility] Work Phone: Start: 26-53-5163Npdbxvx measurementGeneric [facility] Work Phone: Start: 03-29-2024 End: 24-99-6989Frcrkkj measurementGeneric [facility] Work Phone: Start: 92-56-9071Shjtnkb measurementGeneric [facility] Work Phone: Start: 66-87-4106Ztvgc function panelTodd Corbey DO Work Phone: Start: 73-06-8810Pgcdqrb measurementGeneric [facility] Work Phone: Start: 84-63-4531Ncqtgyz measurementGeneric [facility] Work Phone: Start: 07-03-5757Egixgml measurementGeneric [facility] Work Phone: Start: 95-05-2669Yrrvxhm measurementGeneric [facility] Work Phone: Start: 66-63-8971Qpdef function panelTodd Corbey DO Work Phone: Start: 42-00-7811Ouzvvmc measurementGeneric [facility] Work Phone: Start: 93-56-5682Yn retroperitoneal real time w/image Declan Serrato MD Work Phone: Start: 76-04-9740Kftzxve measurementGeneric [facility] Work Phone: Start: 86-72-8491Pqqzmoc measurementGeneric [facility] Work Phone: Start: 26-96-8718Ycmcika measurementGeneric [facility] Work Phone: Start: 03-27-2024 End: 75-70-7074Zdcbvkghbh exam chest single viewTodd Corbey DO Work Phone: Start: 53-67-1695Smyrvdi measurementGeneric [facility] Work Phone: Start: 41-57-7308Lmvkxcrciasxn metabolic panelDella Jordan John [facility] Work Phone: Start: 64-66-5843Avrudqq measurementGeneric [facility] Work Phone: Start: 23-26-6495Prquc metabolic panel calcium total John Chaparro MD Work Phone: Start: 10-16-0997Zifxshq measurementGeneric [facility] Work Phone: Start: 19-39-0975Sthbxtw measurementGeneric [facility] Work Phone: Start: 70-55-3521Udlxbmu measurementGeneric [facility] Work Phone: Start: 03-26-2024 End: 08-19-3419Tsdldem measurementGeneric [facility] Work Phone: Start: 10-68-0077Aqbuttuwtp bloodRylee Manish [facility],PharmDStart: 86-54-7212YLSDVSXJ TOPJennifer Lopez [facility] Work Phone: Start: 16-26-9363PULSQDO DRAWJennifer Lopez [facility] Work Phone: Start: 46-41-8815Ksnamus measurementGeneric [facility] Work Phone: Start: 06-31-9371Yuhzodv measurementGeneric [facility] Work Phone: Start: 44-54-7363Zqnxu of lactateAni Gonzales [facility] Work Phone: Start: 33-66-6768Xtr bact xcpt urine blood/stool aerobic isolBryha Rajan PA-C Work Phone: Start: 42-73-8379Hwxfdip measurementGeneric [facility] Work Phone: Start: 40-07-6746Hyycs of lactateAni Gonzales [facility] Work Phone: Start: 30-07-6589OiwwxwijacowrfysqYfxosxc [facility] Work Phone: Start: 03-25-2024 End: 48-92-6673Ujovq metabolic panel calcium totalImbutch Smith MD Work Phone: Start: 03-25-2024 End: 79-47-3057Evrptkf measurementGeneric [facility] Work Phone: Start: 03-25-2024 End: 08-72-2952Uljfcwz measurementDatamika Aaron MD Work Phone: Start: 30-35-7162Wrgrkxd bacterial quanttative colony count urineAni Gonzales [facility] Work Phone: Start: 31-29-5212Mhk routine ecg w/least 12 lds trcg only w/o i&rAlaina Camila Gonzales [facility] Work Phone: Start: 24-03-4168Rrsairmpertxe metabolic panelAni Gonzales [facility] [facility] Work Phone: Start: 17-85-3845Djugh blood ph direct jordin xcpt pulse oximitryAldebbie Gonzales [facility] Work Phone: Start: 78-15-5707NZKI Russell Aaron MD Work Phone: Start: 61-66-6840Foalbud function panelAni Gonzales [facility] Work Phone: Start: 41-13-2205TMNEG BLUE Russell Aaron MD Work Phone: Start: 66-18-9750XFFSRZ VENOUS BLOOD GASES AND PERFORM Ani Gonzales [facility] Work Phone: Start: 95-31-4032HMGJTBZ DRAWKo Aaron MD Work Phone: Start: 17-53-9516Gqmcg toe minimum 2 viewsKo Aaron MD Work Phone: Start: 01-18-2024 End: 83-47-4787Ivyedmo measurementGeneric [facility] Work Phone: Start: 80-37-2198Hacws function panelJojose Lainez PA-C Work Phone: Start: 04-61-3461Eocspus measurementGeneric [facility] Work Phone: Start: 87-59-9732Jabhhdn measurementGeneric [facility] Work Phone: Start: 34-43-5190Gfbystd measurementGeneric [facility] Work Phone: Start: 87-75-1205Zx head/brain w/o contrast material Ruthy Dong MD Work Phone: Start: 77-55-2425Kgfbgah measurementGeneric [facility] Work Phone: Start: 15-23-6513Nvwmfwx measurementGeneric [facility] Work Phone: Start: 38-32-3393Rqwhg function panelJoua [place] PA-C Work Phone: Start: 03-52-7033Wekjjzl measurementGeneric [facility] Work Phone: Start: 95-37-3998Ysjdt dip stick/tablet reagent auto microscopyMary Lou Castillo [facility] Work Phone: Start: 80-68-4142Carispx measurementGeneric [facility] Work Phone: Start: 30-85-6786Vq retroperitoneal real time w/image completeAlloumar Castillo [facility] FACILITY PSYCHIATRIST Work Phone: Start: 23-32-5506Pumkeep measurementGeneric [facility] Work Phone: Start: 75-47-2283Diohzwh measurementGeneric [facility] Work Phone: Start: 70-32-4425Nrrgb function panelJoshua [place] PA-C Work Phone: Start: 01-15-2024 End: 52-07-7581Kxmapso measurementGeneric [facility] Work Phone: Start: 98-56-4094Gnaly function panelJoshua [place] PA-C Work Phone: Start: 42-53-6356Vcker dip stick/tablet reagent auto microscopyRuthy Dong MD Work Phone: Start: 92-44-0492Jorizlx measurementGeneric [facility] Work Phone: Start: 94-01-5140Ffckyuf measurementGeneric [facility] Work Phone: Start: 38-36-1157Uwyickw measurementGeneric [facility] Work Phone: Start: 85-84-6489Srrncjj measurementGeneric [facility] Work Phone: Start: 63-34-4181Ewafu function panelJojim Lainez PA-C Work Phone: Start: 95-78-4729Wpozyae measurementGeneric [facility] Work Phone: Start: 01-13-2024 End: 90-80-0636Zqpglon measurementGeneric [facility] Work Phone: Start: 58-94-9383Sx lower extremity w/o contrast materialMatthew Timothy Castillo DPM Work Phone: Start: 76-32-9068Aajwnwl measurementGeneric [facility] Work Phone: Start: 90-87-3517Rlelhui measurementGeneric [facility] Work Phone: Start: 84-80-5046Gaqpy count complete automatedEnrique Lainez PA-C Work Phone: Start: 64-50-4957Mxefk function panelEnrique Lainez PA-C Work Phone: Start: 43-79-0785Kmm routine ecg w/least 12 lds trcg only w/o i&rJlandry Leigh MD Work Phone: Start: 08-12-6979Tkwcbdl measurementGeneric [facility] Work Phone: Start: 24-19-4719Duogb foot complete minimum 3 views Matheus Chavira PA-C Work Phone: Start: 11-15-6202Ufdds metabolic panel calcium total Matheus Merrick Chavira PA-C Work Phone: Start: 73-74-2507J-reactive proteinZamonisha Merrick Chavira PA-C Work Phone: Start: 37-53-9625YYOTOHCV Adalberto Dooley MD Work Phone: Start: 01-66-1171ZTDSC BLUE Adalberto Dooley MD Work Phone: Start: 35-70-5495XBXOK GREEN Adalberto Dooley MD Work Phone: Start: 03-76-2269TSUB GREEN Adalberto Dooley MD Work Phone: Start: 70-50-8409MYJMVSW DRAWJacoby Dooley MD Work Phone: Start: 77-41-5337Jbiwiwvwn influenzaLabryan Pelayo PA-C Work Phone: Start: 45-54-0904Flle-cov-2 detection by dna/rnaLaura Leann Pelayo PA-C Work Phone: Start: 58-13-8294Fakcdz photography w/interpretation & reportAnders London MD Work Phone: Start: 16-52-1036Fwsehltjsr ultrasound dx b-scan w/wo a-scanAnders London MD Work Phone: Start: 85-26-6659Dfawrigaaqve [Mass/volume] in Urine by Test stripStepsidra Gaydanica LPNStart: 08-26-2023 End: 80-95-6704Iywudafsoy examination tibia & fibula 2 viewsAndkael Mercado MD Work Phone: start: 61-17-8006Vrxwgwi measurementSileshi Manoj Hennessy MD Work Phone: Start: 50-76-8900Zchkbix measurementGeneric [facility] Work Phone: Start: 16-05-3308Hcabh function panelJoshua Migel PA-C Work Phone: Start: 36-30-0234Kqdisqr measurementGeneric [facility] Work Phone: Start: 19-57-2618Qwgyg of troponin quantitativeKo Aaron MD Work Phone: Start: 76-62-6319MgtyybjvamyyngzxiWkwjz Paul Androw MD Work Phone: Start: 05-32-1024Rwvovnw measurementGeneric [facility] Work Phone: Start: 60-16-7744Hepypzwlnrwgx metabolic panelKo Aaron MD Work Phone: Start: 59-47-1241Nwzuvhf function panelKo Aaron MD Work Phone: Start: 21-86-6605GUEUD BLUE Russell Aaron MD Work Phone: Start: 35-74-3126WCQWX GREEN Russell Aaron MD Work Phone: Start: 42-26-5672CSKMCKT DRAWKo Aaron MD Work Phone: Start: 52-35-5719Vs thorax w/o contrast materialDatamika Aaron MD Work Phone: Start: 40-96-9249Lmuatlnoyp exam chest single view Ko Aaron MD Work Phone: Start: 52-53-2772Nkhwteg measurementGeneric [facility] Work Phone: Start: 48-27-9302Bmgtb metabolic panel calcium total Harshad Dianne Rizzo MD Work Phone: Start: 86-80-7890Lrraomd measurementGeneric [facility] Work Phone: Start: 18-07-0140Azhrdvw measurementGeneric [facility] Work Phone: Start: 12-77-0103Wljcile measurementGeneric [facility] Work Phone: Start: 13-90-0040Rctlbbe measurementGeneric [facility] Work Phone: Start: 32-48-9161Mvlkjcd measurementGeneric [facility] Work Phone: Start: 02-19-2023 End: 20-21-7331Whhqmzd bacterial blood aerobic w/id isolatesHarshad Rizzo MD Work Phone: Start: 02-19-2023 End: 23-51-2259Xgikc metabolic panel calcium totalSher Dianne Rizzo MD Work Phone: Start: 78-49-3420Mzqftqb measurementGeneric [facility] Work Phone: Start: 10-80-5373Ckmdymh measurementGeneric [facility] Work Phone: Start: 51-74-0447Dyib tthrc r-t 2d w/wom-mode compl spec&colr dSher Dianne Rizzo MD Work Phone: Start: 00-90-6977Gyupyzx measurementGeneric [facility] Work Phone: Start: 21-09-9852Hhnkmhr measurementGeneric [facility] Work Phone: Start: 95-96-2647Lmhqsixjij spect multiple studies Cate King MD Work Phone: Start: 35-62-2348Sbfbiff measurementGeneric [facility] Work Phone: Start: 99-00-1780Cspjw of troponin quantitativeVitimothy Butcher MD Work Phone: Start: 38-26-8051LbylpfjhaeujlhaxhMystdal [facility] Work Phone: Start: 02-18-2023 End: 78-37-9330Kwjix metabolic panel calcium totalVijay Seb Guadalupe MD Work Phone: Start: 16-68-4805Hfowney measurementGeneric [facility] Work Phone: Start: 66-77-4621Vpnli of troponin Ashley Butcher MD Work Phone: Start: 57-35-8291Qq thorax w/o contrast materialHayde Pickering DO Work Phone: Start: 65-72-4689Lk head/brain w/o contrast material Hayde Pickering DO Work Phone: Start: 31-91-6607Zsoxs dip stick/tablet reagent auto microscopyHayde Pickering DO Work Phone: Start: 17-04-0440Usaxwimsaihsp metabolic panelHayde Pickering DO Work Phone: Start: 37-89-3365KLQFT BLUE TOPHayde Reyes DO Work Phone: Start: 39-80-3268NYCSB GREEN TOPHayde Reyes DO Work Phone: Start: 45-98-2488AXWDXQG DRAWHayde Reyes DO Work Phone: Start: 84-74-8879Mindyunpep exam chest single view Hayde Pickering DO Work Phone: Start: 51-31-5604Sxe routine ecg w/least 12 lds w/i&r Hayde Pickering DO Work Phone: Start: 56-37-3964Ka cervical spine w/contrast material Nikko Kendrick DO Work Phone: Start: 00-79-0915SO Thoracic and lumbar spine W contrast IVAaron Kendrick DO Work Phone: Start: 88-25-2309Aoqznqdaqqz timeChrismissy Clay MD Work Phone: Start: 58-12-7441Ivewk typing, ABO, Rho(D) and RBC antibody screeningAaron Kendrick DO Work Phone: [phone]: 34-11-5609Hqjbt of magnesiumAaron Kendrick DO Work Phone: Start: 50-06-3289A-reactive proteinAaron Kendrick DO Work Phone: Start: 54-57-5659Nnkat culture for bacteria, including anaerobic screenNP-C Kip SoviChemistDirect Work Phone: Start: 10-32-9586Khuus volume recorder pneumoplethysmographyNP-C Kip Soviak Work Phone: Start: 31-18-0990T-ray of left footNP-C Kip Soviak Work Phone: Start: 16-38-3952Oznocmgjxur examination of blood, cultureYESENIA ZAMUDIO .Comment on above:Performed By: #### [id number] ####[facility] [address] [place], [place] [address]Dr. eDvin Suresh Start: 36-29-4334Kddt screen, qualitate/multiMartin Beti Sosa MD Work Phone: Start: 68-74-2639Lllggnpfix microscopic onlyMarfadumo Sosa MD Work Phone: Start: 71-21-8244Mvpxd dip stick/tablet rgnt auto w/o microscopyMartin Beti Sosa MD Work Phone: Start: 78-10-5182Avfvaes [Mass/volume] in BloodJames Pascual Work Phone: Start: 72-13-1886Dsxpdnv microbial cultureLisa Hendrickson Work Phone: Start: 10-35-2553Thjshsj [Mass/volume] in BloodJames Pascual Work Phone: Start: 31-18-2218Efrgoyh [Mass/volume] in BloodBridger Garner Work Phone: [phone]: 26-83-2114Fhpyo metabolic 1999 panel - Serum or PlasmaBridger Garner Work Phone: [phone]: 16-88-0865Airhfzqk blood count (hemogram) panel - Blood by Automated countBridger Garner Work Phone: [phone]: 13-26-3529Oslkzcfdm [Mass/volume] in Serum or PlasmaBridger Garner Work Phone: [phone]: 24-63-9326Owkwipldrup [Units/volume] in Serum or Plasma by Detection limit <= 0.005 mIU/LJames Pascual Work Phone: [phone]: 14-59-2627Wuocdar [Moles/volume] in Serum or PlasmaBridger Garner Work Phone: [phone]: 59-78-4146Bgmhufh [Mass/volume] in BloodBridger Garner Work Phone: [phone]: 83-57-6572Jmsdctw [Mass/volume] in BloodBridger Garner Work Phone: [phone]: 86-43-0559Ctpprkz [Mass/volume] in BloodKatyn Leann Bolivar Work Phone: [phone]: 33-05-4648Ajojcoy [Mass/volume] in BloodKathryn Leann Sheldon Work Phone: Start: 37-16-5471Qygtd metabolic 2000 panel - Serum or PlasmaKathryn Leann Bayteresita Work Phone: [phone]: 13-95-9844Ngcgvaub blood count with white cell differential, automatedBreanna Bolivar Work Phone: Start: 60-39-3341Tcyuczdo blood count with white cell differential, manualKatafia Bolivar Work Phone: [phone]: 11-75-5782Asncsymqpp A1c/Hemoglobin.total in BloodDeanna H CareyStart: 11-76-9345Qtktngdgw [Mass/volume] in Serum or Plasma Breanna Bolivar Work Phone: Start: 35-81-9590Bevty of lactateDavid Estlow Hankins Work Phone: Start: 64-30-0950Apbcyoa [Mass/volume] in BloodBreanna Bolivar Work Phone: Start: 03-99-4835MISDB-19, MOLECULARDavid Estlow Hankins Work Phone: Start: 09-01-0999Bt lower extremity w/o contrast materialDavid Estlow Hankins Work Phone: Start: 22-21-9957Qygnhkmv identified in Blood by CultureDavid Estlow Hankins Work Phone: Start: 34-56-2540Uxyex metabolic 1998 panel - Serum or PlasmaDavid Estlow Hankins Work Phone: Start: 29-73-0673Lvnznfwz blood count with white cell differential, automatedDavid Estlow Hankins Work Phone: Start: 86-92-9870Qmifigtk blood count with white cell differential, manualDavid Estlow Hankins Work Phone: Start: 85-56-7287Nkdjzlj [Moles/volume] in Serum or PlasmaDavid Estlow Hankins Work Phone: Start: 32-67-2151IDEOO BLUE TOPDavid Estlow Hankins Work Phone: Start: 68-24-7275ABWAK GREEN TOPDavid Estlow Hankins Work Phone: Start: 23-31-3656GFWLCIF DRAWDavid Estlow Hankins Work Phone: Start: 08-76-0473Crklnmnicbe of ankleBreanna Riccardo Comment on above:Left achilles tendon tennex procedure Left achilles tendon tennex procedureStart: 96-38-3460TJ head/brain wo con Shameka Whitetart: 46-74-8161Lqqhj chest X-rayMattcassandra AlemanSocorro General Hospitaltart: 07-14-2018 Aerobic microbial cultureMattcassandra AlemanSocorro General Hospitaltart: 66-33-4297Hogfcbozhnc urinalysis KEYLA TERENCEStart: 20-86-6811LuxemwbnatQEFWPENYEDH TERENCEStart: 09-01-2017 BASIC METABOLIC PANELCHRISTOPHER TERENCEStart: 93-47-4303KBWBW GAS, VENOUS ANTONIOANAND TERENCEStart: 49-18-0646Qzk-scan xtr veins complete bilateral study KEYLA TERENCEStart: 82-36-3017Iumwshjbdb exam chest 2 viewsCHRISTOPHER PRATT Start: 38-59-7569ZLFVS METABOLIC PANELCHRISTOPHER TERENCEStart: 09-01-2017 BETA-HYDROXYBUTYRATECHRISTOPHER TERENCEStart: 67-60-6367VJUUZSYAIAVCHU TERENCEStart: 92-63-5422O-DIMER, QUANTITATIVECHRISTOPHER TERENCEStart: 02-72-5475DGVFTDB LEVEL KEYLA TERENCEStart: 04-44-8296AOYTVLWUUGGFAXWMCULS TERENCEStart: 09-01-2017 TROPONINCHRISTOPHER TERENCEStart: 14-14-7442DEXCCFK MONITORCHRISTOPHER TERENCEStart: 30-42-8077PETGRH PERIPHERAL IVCHRISTANAND TERENCEStart: 06-18-6799GUV 12-LEAD KEYLA TERENCEStart: 03-53-9095Tmkggdqh of Romel Gu Comment on above:PLANTAR FASCIOTOMY ENDOSCOPIC, Left. with ankle lateral stabilization.PLANTAR FASCIOTOMY ENDOSCOPIC, Left. with ankle lateral stabilization.Start: 52-32-9666Gbrlytjjkjk of cervical spineMawadsworth-rittman hospitalcassandra Whitetart: 07-07-7015Efmqblccoha urinalysisCHRISTOPHER TERENCEStart: 02-16-2017 UA W/REFLEX CULTURECHRISTOPHER TERENCEStart: 93-43-4335AFLIU CULTURECHRISTOPHER TERENCEStart: 65-31-8145CZMIMBAUJMBTNFKULJI TERENCEStart: 50-51-3570Krymg x-ray 1 view frontalCHRISTOPHER DAVISStart: 28-48-2052LMXVBP PERIPHERAL IVCHRISTANAND TERENCEStart: 83-54-2185AUF 12-LEADCHRISTOPHER DAVISStart: 52-47-8932VTUH KEYLA TERENCEStart: 19-73-0096ZSULE METABOLIC PANELCHRISTOPHER DAVISStart: 01-16-2790RTRFS NATRIURETIC PEPTIDECHRISTOPHER DAVISStart: 66-99-7134BRD WITH AUTO DIFFERENTIALCHRISTOPHER DAVISStart: 51-28-4609L-DIMER, QUANTITATIVE KEYLA DAVISStart: 10-21-3856AQRTNXX-INRCHRISTOPHER DAVISStart: 02-16-2017 TROPONINCHRISTOPHER DAVISStart: 91-62-0374Fuxuw Plantar FasciotomyArianneadalgisa Gu Start: 11-42-5611Bnayszjzooii [Mass/volume] in Urine by Test stripDavid HydeAnkleKleoelvialuli Gu ankle surgery ORIF 3Kathelvialuli Riccardo Comment on above:bilateralbilateralCholecystectomy Breanna Herediaell ColonoscopyBreanna Gu Dentition (body structure)Breanna Gu EsophagogastroduodenoscopyPastoraafia Gu HysterectomyBreanna Gu insertion of Infusaport 4Katafia Gu Comment on above:right chestright chestLaparoscopy Breanna Gu Loop electrosurgical excision procedure of cervix Breanna Gu pacemaker 5Pastoraafia Gu Comment on above:Jan [facility]- [facility]Structure [facility] proper (body structure) Breanna Gu Plan of Treatment DateCare ActivityDetailAuthorStart: 77-28-1655GWG Vaccines (1 - 1-dose 75+ series)RSV Vaccines (1 - 1-dose 75+ series)[facility] HospitalStart: 10-01-2758UQuA,Tdap and Td Vaccines (2 - Td or Tdap)DTaP,Tdap and Td Vaccines (2 - Td or Tdap) [facility] Hospitaltart: 64-20-6870Fcizayo vaccinationMetroHealthStart: 98-89-7149Xmeearykjad for diphtheria, pertussis, and tetanus Tetanus/Diphtheria/Pertussis (2 - Td or Tdap)OhioHealthStart: 2027 Administration of herpes zoster vaccineZoster Vaccines (1 of 2)OhioHealthStart: 01-31-0450Jklixlce (RZV) Vaccine (1 of 2)Shingles (RZV) Vaccine (1 of 2) MetroHealthStart: 36-49-8003Tfzkzenonlc [Mass/volume] in Serum or Plasma CholesterolMetroHealthStart: 86-01-2419Gqtjs BMI ScreeningAdult BMI Screening [facility] Hospitaltart: 45-40-6990Hkczkoyihd ScreeningDepression Screening [facility] Hospitaltart: 50-72-3577Daecgbz ScreeningTobacco Screening [facility] Hospitaltart: 09-27-2025 End: 95-61-4440Kfyvwad encounter tqluuyzej12/06/2026 2:00 PM EDT Procedure Visit [facility] [address] [address] Lj Negron DO [address] [place] [address] [facility] BRIGHTtart: 70-16-1524Elsfu screening for proteineGFR DiabetesOhioHealthStart: 05-30-2025 End: 97-32-3726Brpuoyh encounter ttcnbczyf39/06/2026 3:05 PM EST Office Visit [facility] [place] [facility] [place] [address] Jim Velez, DO [address] [place] [address] [facility] Pain Management MarionStart: 37-33-4608Xsoxyyjwzz A1c measurementCenterPointe Hospital Start: 05-04-2025 End: 15-65-0575Vlppwau encounter /11/2025 11:30 AM EST [facility] [address] [place] [address] Sergio Resendez MD [address] [place] [address] [facility]ologyStart: 04-24-2025 End: 35-13-3755Qjnboao encounter vjqudprzb77/01/2025 11:15 AM EST Appointment [facility] [address] [place] [address] Raul Kumar MD [address] [facility] [address] [place] [address] [facility] MRIStart: 04-21-2025 End: 61-43-8165Uytxugp encounter nuqkbrcur76/28/2025 11:15 AM EST Appointment [facility] [address] [place] [address] Raul Kumar MD [address] [facility] [address] [place] [address] [facility] MRIStart: 04-12-6021Tdcbq screening for proteineGFR DiabetesOhioHealthStart: 03-25-2025 eGFR DiabeteseGFR DiabetesOhioHealthStart: 66-75-0444Wiojq screening for protein eGFR DiabetesOhioHealthStart: 49-57-5887Kshjy screening for proteineGFR Diabetes MississippiHealthStart: 03-08-2025 End: 31-36-8733Ikhaauv encounter fhveggvgj46/15/2025 11:30 AM EDT Office Visit [facility] [address] [facility] [address] [place] [address] Mihai Elizalde, CORRECTIONAL FACILITY PSYCHIATRIST [address] [place] [address] Raul Kumar MD [address] [facility] [address] [place] [address] [facility] PhysiciansStart: 80-38-5453Vurjgxxaht A1c measurementDiabetes: Hemoglobin R9HYACF HealthcareStart: 03-03-2025 End: 86-66-4474Aickreo encounter witpksthy80/10/2025 8:00 AM EDT Office Visit [facility] [address] [place] [phone] Lexy Leach MD [address] [place] [phone] [facility] Hospitaltart: 39-83-5247ZPFHA-19 Vaccine () COVID-19 Vaccine ()OhioHealthComment on above:Postponed from 01/24/2024 (Treatment Not Available)Start: 90-16-6712TYGJF-19 Vaccine ()COVID-19 Vaccine ()OhioHealthComment on above: Postponed from 01/24/2024 (Treatment Not Available)Start: 02-02-2025 End: 114240-tyaueobfeimpnj D3 [Mass/volume] in Serum or PlasmaVitamin D 25 hydroxy Total Lab Routine Type 2 diabetes mellitus with hyperglycemia, with long-term current use of insulin (HCC) Expected: 02/02/2025 (Approximate), Expires: 02/02/2026NOFL HealthcareComment on above:Expected: 02/02/2025 (Approximate), Expires: 02/02/2026Start: 02-02-2025 End: 98-96-6651V-peptideC-peptide Lab Routine Type 2 diabetes mellitus with hyperglycemia, with long-term current use of insulin (HCC) Expected: 02/02/2025 (Approximate), Expires: 02/02/2026[facility] Work Phone: Comment on above:Expected: 02/02/2025 (Approximate), Expires: 02/02/2026Start: 01-79-4858Xqabiazais A1c rcegytwpjboNCY3Z TESTOSThe University of Toledo Medical Centertart: 02-02-2025 End: 31-74-9120Jvrjt 1996 panel - Serum or PlasmaLipid panel Lab Routine Type 2 diabetes mellitus with hyperglycemia, with long-term current use of insulin (HCC) Expected: 02/02/2025 (Approximate), Expires: 02/02/2026[facility] Comment on above:Expected: 02/02/2025 (Approximate), Expires: 02/02/2026Start: 02-02-2025 End: 88-65-4451Tmsyuyzgajat/Creatinine panel in random UrineMicroalbumin / creatinine urine ratio Lab Routine Type 2 diabetes mellitus with hyperglycemia, withlong-term current use of insulin (HCC) Expected: 02/02/2025 (Approximate), Expires: 02/02/2026CenterPointe HospitalComment on above:Expected: 02/02/2025 (Approximate), Expires: 02/02/2026Start: 02-02-2025 End: 77-32-7706Oubqg function panelRenal function panel Lab Routine Type 2 diabetes mellitus with hyperglycemia, with long-term current use of insulin (HCC) Expected: 02/02/2025 (Approximate), Expires: 02/02/2026[facility] Comment on above:Expected: 02/02/2025 (Approximate), Expires: 02/02/2026Start: 02-02-2025 End: 97-04-9871Fpvgayn encounter belbzcdpk51/11/2025 10:50 AM EDT Office Visit [facility] [address] [place] [address] Sergio Resendez MD [address] [place] [address] [facility] EndocrinologyComment on above:ArrivedStart: 06-44-1891DBVGH-19 Vaccine ( season)COVID-19 Vaccine ( season)OhioHealthStart: 00-69-3297Cfvkzeyno vaccination OhioHealthStart: 55-39-8389Dyuqk screening for proteineGFR DiabetesOhioHealth Start: 01-05-2025 End: 13-37-6488Diplsqw encounter coqvxatbp86/14/2025 7:30 AM EDT Office Visit [facility] [place] [address] [place] [address] Mihai Elizalde, CORRECTIONAL FACILITY PSYCHIATRIST [address] [place] [address] [facility] MarionStart: 43-32-8949Gcjupgnibl A1c yfeskhdzjxoA9TOoowJfxabuAcbbv: 10-63-4373Pyxmatjh identified in Urine by CultureUrine [facility] Hospitaltart: [facility] Start: 12-21-2024 End: 37-63-7206Ixjopba encounter /30/2025 10:40 AM EDT Office Visit [facility] [place] [address] [place] [address] Mihai Elizalde, CORRECTIONAL FACILITY PSYCHIATRIST [address] [facility] [place] [address] [facility] MarionStart: 12-12-2024 End: 78-89-2778Armagfp encounter degabvalh09/21/2025 3:30 PM EDT Office Visit [facility] [address] [place] [address] Sahara Sanchez MD [address] [facility] [place] [address] [facility] EndocrinologyStart: 12-07-2024 End: 49-47-4860Sahzrcs encounter mipwwslpx86/16/2025 10:00 AM EDT Office Visit [facility] [address] [place] [address] [place] [phone] Lindsay Johnson, CUT OUT OPERATOR-CORRECTIONAL FACILITY PSYCHIATRIST [address] [place] [address], [place] [address] [facility] MedicineStart: 12-05-2024 End: 02-69-3469Xmojxkr encounter wakrmrszq43/14/2025 2:20 PM EDT Office Visit [facility] [place] [address] Stephany Pelayo PA-C Qwite S [address] [address] [facility] Primary Care PhysiciansStart: 41-72-0902Ckgpuwyw foot examinationDiabetic Foot Exam OhioHealthStart: 39-97-6910Szkgcmpf screeningOhioHealthStart: 11-02-2024 Hemoglobin A1c xsbgbbjpumfV2DNavbSljpwgVjaoj: 26-96-9698Jukra screening for proteineGFR DiabetesOhioHealthStart: 10-14-2024 End: 19-16-3414Dkppzzw encounter rimmhinpy25/23/2025 8:40 AM EDT Office Visit [facility] [place] [address] Stephany Pelayo PA-C [address] [address] [facility] Primary Care PhysiciansStart: 10-11-2024 End: 75-00-0077Tawbkfq encounter /20/2025 2:30 PM EDT Office Visit [facility] [address] [place] [address] [place], [id number] Mery Robles MD [address] [place] [address] [facility] OrthopedicsStart: 10-10-2024 End: 11-53-7919Qahlsuc encounter ghaskejwg94/19/2025 3:40 PM EDT Office Visit [facility] Primary Care Physicians [address] [place] [address] Stephany Pelayo PA-C [address] [place] [address] [facility] Primary Care PhysiciansStart: 09-28-2024 End: 42-49-7583Cwdjsvp encounter nmutwodfi21/07/2025 9:45 AM EDT Office Visit [facility] Endocrinology [address] [place] [address] Sahara Sanchez MD [address] [facility] [place] [address] [facility] EndocrinologyStart: 27-94-6542Jjuxz screening for proteineGFR DiabetesOhioHealthStart: 09-23-2024 End: 66-85-5106Kqindtmz Lab Urine Drug ScreenExternal Lab Urine Drug Screen Lab Routine Lumbar radiculopathy Chronic pain syndrome Expected: 09/23/2024, Expires: 09/23/2025[facility] Work Phone: Comment on above:Expected: 09/23/2024, Expires: 09/23/2025Start: 09-23-2024 End: 12-55-2192Rqzfpzs encounter znzefnxnu99/02/2025 10:30 AM EDT Office Visit [facility] Pain Management [place] [address] [place] [address] Jim Velez DO [address] [place] [address] [facility]: 44-57-5853Lluvkyw and physical examination, annual for health [facility] VisitOhioHealthStart: 38-18-8121Binxoqzgn for malignant neoplasm of colonColorectal Cancer Screening/MonitoringOhioHealth Comment on above:Postponed from 1977 (Patient Refused)Start: 09-02-2024 Urine screening for proteinUrine MicroalbuminOhioHealthStart: 08-23-2024 End: 32-46-5133Eacokxv encounter procedureGal[facility] Orthopedics Start: 08-22-2024 End: 76-50-0325Agcrizg encounter xwudhrzpw56/31/2025 1:30 PM EDT Office Visit [facility] Primary Care Physicians [address] [place] [address] Rafaela Medrano, CORRECTIONAL FACILITY PSYCHIATRIST [address] [place] [address] [facility] Primary Care PhysiciansStart: 08-10-2024 End: 21-41-9069Lsvrndl encounter procedureGal[facility] Spine Surgery Start: 08-09-2024 End: 15-50-3103Mtlksqw encounter tzluaymzc03/18/2025 4:00 PM EDT Office Visit [facility] Pain Management [place] [address] [place] [address] Jim Velez DO [address] [place] [address] [facility] Pain Management Shanetart: 07-28-2024 End: 50-35-7290Pnnkify encounter bwrfzmuqr97/06/2025 2:20 PM EST Office Visit [facility] Primary Care Physicians [address] [facility] [place] [address] Stephany Pelayo PA-C [address] [place] [address] [facility] Primary Care PhysiciansStart: 07-26-2024 End: 25-36-9725uozcojixqwRgahrp Area Physicians Primary Care PhysiciansStart: 07-26-2024 End: 60-00-4032Pcxvkpq encounter fmgdpdywd35/04/2025 11:00 AM EST Office Visit [facility] Primary Care Physicians [address] [place] [address] Stephany Pelayo PA-C [address] [place] [address] [facility] Primary Care PhysiciansStart: 84-09-6895Tkfjf screening for proteineGFR Diabetes OhioHealthStart: 07-08-2024 End: 48-92-1191Lghppdw encounter cufqszslb63/14/2025 8:50 AM EST Office Visit [facility] [address] [place] [phone] Soto Box, DPM FACFAS [address] [place] [address] [facility] PODStart: 07-07-2024 End: 49-72-2289Uakyuhj encounter xiwycovgx29/13/2025 2:20 PM EST Office Visit [facility] Primary Care Physicians [address] [place] [address] Stephany Pelayo PA-C [address] [place] [address] [facility] Primary Care PhysiciansStart: 07-05-2024 End: 42-95-3169Asdzssn encounter htrmenfnn97/11/2025 8:20 AM EST Office Visit [facility] [address] [place] [phone] Soto Box, DPM FACFAS [address] [place] [address] ArrivedNOMS NMA PODComment on above:ArrivedStart: 06-22-2024 Hemoglobin A1c measurementOhioHealthStart: 06-20-2024 End: 99-43-2095Yzyyofl encounter ygkrytjzp27/27/2025 9:40 AM EST Office Visit [facility] Neurology [address] [facility] 2 [place] [address] Virgen Campos MD [address] [facility] [address] [place] [address] [facility] NeurologyStart: 05-11-2024 End: 15-24-2447dlrdkbjedtSlmxxi Area Physicians EndocrinologyStart: 05-11-2024 End: 43-58-4156Fywcigu encounter iaqylgrrn67/18/2024 2:15 PM EST Office Visit [facility] Endocrinology [address] [place] [address] Sahara Sanchez MD [address] [place] [address] [facility] EndocrinologyStart: 05-11-2024 End: 62-97-7145clktgtodztEdgpsuhzd Hospital Wound CareStart: 05-11-2024 End: 22-91-4399Mdifegd encounter nbpeknumm03/18/2024 10:15 AM EST Office Visit [facility] [address] [place] [address] Ramiro Hale MD [address] [address] Discharge Disposition: Home [facility] Wound CareStart: 23-65-7091JAJHD-19 Vaccine ( season)COVID-19 Vaccine ( season)[facility]HealthComment on above:Postponed from 01/23/2023 (Patient Refused)Start: 88-60-4361Cwnpotfuh C screening Hepatitis C ScreeningOhioHealthComment on above:Postponed from 1995 (Patient Refused)Start: 06-22-4502GPV screeningHIV ScreeningOhioHealthComment on above:Postponed from 1992 (Patient Refused)Start: 55-65-7405Tgutqzrfr for malignant neoplasm of cervixPap SmearOhioHealthComment on above:Postponed from 1998 (Patient Refused)Start: 05-05-2024 End: 99-26-6899Tfsynzb encounter byakkgzfi17/12/2024 11:40 AM EST Office Visit [facility] [place] [address] Mihai Elizalde, CORRECTIONAL FACILITY PSYCHIATRIST [address] [place] [address] [facility] Pain Management MarionStart: 04-27-2024 End: 12-08-7203dkukltptawBiggVfardg Physician Group Pain Management MarionStart: 04-27-2024 End: 46-50-0093Hljajzg encounter lrmywubat88/04/2024 3:40 PM EST Office Visit [facility] Pain Management [place] [address] [address] Mihai Elizalde, CORRECTIONAL FACILITY PSYCHIATRIST [address] [place] [address] [facility] Pain Management MarionStart: 04-19-2024 End: 10-69-1963Kzekmtu encounter idzbkglav59/26/2024 8:40 AM EST Office Visit [facility] [place] [address] Mihai Elizadle, CORRECTIONAL FACILITY PSYCHIATRIST [address] [place] [address] [facility] Pain Management MarionStart: 40-56-5658Hxnuljct foot examinationDiabetic Foot Exam OhioHealthStart: 40-31-7121Sdkheuyegn A1c ydpvxwatobbZ5QVsecDbxdjxVdjgy: 04-01-2024 End: 93-96-8651Aolvusm encounter ixhyikfet54/08/2024 11:00 AM EST Office Visit [facility] [place] [address] Stephany Pelayo PA-C [address] [place] [address] [place] [address] [facility] Primary Care PhysiciansStart: 03-22-2024 End: 98-58-1365Uutrxvv encounter kpwouhvdp23/29/2024 11:00 AM EDT Office Visit [facility] Primary Care Physicians [facility] [place] [address] Stephany Pelayo PA-C [address] [place] [address] [facility] Primary Care PhysiciansStart: 03-03-2024 End: 01-13-6208Tydsfyh encounter procedureGalion Hospital [facility] Primary Care Start: 03-01-2024 End: 18-60-6217Fyoypck encounter jghayhoua38/08/2024 11:30 AM EDT Office Visit [facility] Psych [address] [place] [address] Zoë Garcia MD [address] [place] [address] [facility] PsychStart: 02-17-2024 End: 47-06-2313Yjqjctd encounter kiwvbopgq53/25/2024 1:40 PM EDT Office Visit [facility] Neurology [address] [place] [address] Virgen Campos MD [address] [place] [address] [facility] NeurologyStart: 02-10-2024 End: 77-26-9985Qgfehjx encounter dqagzjtyz56/18/2024 1:00 PM EDT Office Visit [facility] Primary Care Physicians [facility] [place] [address] Rafaela Medrano, CORRECTIONAL FACILITY PSYCHIATRIST [address] [place] [address] [facility] Primary Care PhysiciansStart: 02-02-2024 End: 39-45-1669Qfvpbqg encounter pifugarwz59/10/2024 4:00 PM EDT Office Visit [facility] Pain Management [place] [address] [place] [address] Jim Velez, DO [address] [place] [address] [facility] Pain Management MariRicktart: 01-28-2024 End: 75-69-2147Ngnikuy encounter cfpngkyxy99/05/2024 2:00 PM EDT Office Visit [facility] Psych [address] [place] [address] Zoë Garcia MD [address] [place] [address] [facility] PsychStart: 01-27-2024 End: 23-92-6915Hqdqtod encounter nafidjzdk14/04/2024 1:30 PM EDT Office Visit [facility] Primary Care Physicians [address] [place] [address] Rafaela Medrano, CORRECTIONAL FACILITY PSYCHIATRIST [address] [place] [address] [facility] Primary Care PhysiciansStart: 94-80-2497OOAXH-19 VACCINE ( season)COVID-19 VACCINE ( season)[facility] Hospitaltart: 54-32-2909VBRZI-19 Vaccine ( season)COVID-19 Vaccine ( season)[facility] HospitalStart: 24-61-7761TXTPU-19 Vaccine ( season)COVID-19 Vaccine ( season)[facility] [employer] [facility] Hospitaltart: 41-71-9028Lamjgjpdw vaccinationInfluenza Vaccine (#1)[facility] HospitalStart: 01-19-2024 End: 16-33-4959Wskhqun encounter dkmdmxejm36/27/2024 11:30 AM EDT Office Visit [facility] Psych [address] [place] [address] Zoë Garcia MD [address] [place] [address] [facility] PsychStart: 88-61-1785Rksygncequ A1c rfomxtyihjiE3YKbfkIvwhfmXrbcx: 12-23-2023 End: 67-26-2737wucovojcxy79/31/2024 3:15 PM EDT Evaluation [facility] Physical Therapy [address] [facility] [place] [address] Jim Velez [address] [place] [address] Mary Wells, PT Discharge Dis[facility]: [facility] Physical TherapyStart: 12-22-2023 End: 47-01-7087Yqmglnd encounter qgtcwknpi26/30/2024 2:00 PM EDT Office Visit [facility] Urology [address] [facility] [place], [id number] Sharla Camara PA-C [address] [place] [address] [facility] UrologyStart: 12-21-2023 End: 98-98-2569Tonxmcj encounter lurszeqqt57/29/2024 2:00 PM EDT Office Visit [facility] Neurology [address] [place] [address] Virgen Campos MD [address] [place] [address] [facility] NeurologyStart: 12-14-2023 End: 43-76-1936Absbfxs encounter pqjihryzk03/22/2024 10:00 AM EDT Office Visit [facility] Endocrinology [address] [place] [address] Sahara Sanchez MD [address] [place] [address] [facility] EndocrinologyStart: 12-08-2023 End: 18-06-6542Rbipwog encounter azyaujuqd68/16/2024 2:00 PM EDT Office Visit [facility] Pain Management [place] [address] [place] [address] Stephany Pelayo PA-C [address] [place] [address] Jim Velez, DO [address] [place] [address] [facility] CenteronStart: 12-03-2023 End: 62-82-8391[employer] encounter dcqccfruy63/11/2024 2:00 PM EDT Office Visit [facility] Pain Management [place] [address] [place] [address] Jim Velez, DO [address] [place] [address] [facility] Pain Management MarionStart: 12-02-2023 End: 96-34-8323Avzlasw encounter /10/2024 1:45 PM EDT Office Visit [facility] Endocrinology [address] [place] [address] Stephany Pelayo PA-C [address] [place] [address] Sahara Sanchez MD [address] [place] [address] [facility] EndocrinologyStart: 11-19-2023 End: 56-13-1356Zkxdvtm encounter abcoknlfz39/27/2024 12:40 PM EDT Office Visit [facility] Primary Care [address] [place] [address] Stephany Pelayo PA-C [address] [place] [address] [facility] Primary CareStart: 11-19-2023 End: 49-83-0247sqfywfgmdi89/27/2024 9:00 AM EDT Evaluation [facility] Ophthalmology [address] [facility], [place] Stephany Pelayo PA-C [address] [place] [address] Karon Monzon, [address] [place] [address] [facility] OphthalmologyStart: 10-13-2023 End: 65-49-7507Eqkzmgd encounter zmwaztxrj32/21/2024 11:20 AM EDT Office Visit [facility] Primary Care [address] [place] [address] Stephany Pelayo PA-C [address] [place] [address] [facility] Primary CareStart: 10-08-2023 End: 84-85-7925Mckyqjy encounter azzqrlsst65/16/2024 7:00 AM EDT Appointment [facility] EEG [address] [place] [address] Virgen Campos MD [address] [place] [address] [facility] EEGStart: 10-07-2023 End: 84-78-9789Alrrmiw encounter procedureGalion Hospital Physicians PsychStart: 66-16-9368Lkewkxue screeningDiabetic Eye ExamOhioHealthComment on above: Postponed from 1987 (Per Other Best Practice Guidelines)Start: 09-16-2023 End: 98-66-1961Gibwfbd encounter gmsyybhgz82/24/2024 1:00 PM EDT Office Visit [facility] Neurology [address] [place] [address] Virgen Campos MD [address] [place] [address] [facility] NeurologyStart: 09-03-2023 End: 17-42-7963Fzamqhy encounter rcgamrfcz49/11/2024 2:00 PM EDT Office Visit [facility] Primary Care [address] [place] [address] Stephany Pelayo PAKandi [address] [place] [address] [facility] Primary CareStart: 08-19-2023 End: 73-37-8960Aifuekf encounter putagkkdx21/27/2024 2:00 PM EDT Office Visit [facility] Urology [address] [facility] [place], [id number] Sharla Camara PA-C [address] [place] [address] [facility] UrologyStart: 30-53-6282Hcexqjbtxv A1c fmjadbjjkshU6IZpniOecwabYhsnd: 08-03-2023 End: 69-00-7752Minpdwe encounter yoximeogu54/11/2024 2:30 PM EDT Initial consult [facility] Psych [address] [place] [address] Stephany Pelayo PA-C [address] [place] [address] Zoë Garcia MD [address] [place] [address] [facility] PsychStart: 32-92-3049Cwikbnnq foot examinationDiabetic Foot Exam OhioHealthComment on above:Postponed from 1987 (Per Other Best Practice Guidelines)Start: 07-03-2023 End: 59-65-4250ixmsjqeaoj76/09/2024 9:00 AM EST Evaluation [facility] Ophthalmology [address] [place], [place] Stephany Pelayo, PACheC [address] [facility] [address] [place] [address] Karon Monzon DO [address] [place] [address] [facility] OphthalmologyStart: 34-26-9711Mfleuztogs A1c yfuwuvxnkpuI1NPjjdGstljwYlivy: 06-29-2023 End: 36-11-7709Ojfpaqe encounter wkmnvokxh51/05/2024 10:00 AM EST Office Visit [facility] Cardiology [address] [place], [place] Dakota Edward MD [address] [facility] [place] [address] [facility] CardiologyStart: 06-23-2023 End: 34-67-8707Wltdlfx encounter ayihzvydw75/30/2024 8:15 AM EST Office Visit [facility] Endocrinology [address] [place] [address] Stephany Pelayo PA-C [address] [facility] 2 [place] [address] Sahara Sanchez MD [address] [facility] [place] [address] [facility] EndocrinologyStart: 06-22-2023 End: 04-67-4082pcdpupgdqj22/29/2024 2:30 PM EST Evaluation [facility] Ophthalmology [address] [place] [place], [address] Karon Monzon DO [address] [place] [address] ( Work) [facility] OphthalmologyStart: 06-22-2023 End: 21-60-3243Egdbbjhp identified in Unspecified specimen by Aerobe culture Urine Aerobic Culture Microbiology Routine Incontinence in female Expected: 06/22/2023 (Approximate), Expires: 06/22/2024OhioHealthComment on above: Expected: 06/22/2023 (Approximate), Expires: 06/22/2024Start: 06-22-2023 End: 76-06-1042UdlapdlvkiQflmureexe with microscopic Lab Routine Incontinence in female Expected: 06/22/2023 (Approximate), Expires: 06/21/2024[facility] Work Phone: Comment on above:Expected: 06/22/2023 (Approximate), Expires: 06/21/2024Start: 06-11-2023 End: 41-56-9631Bsgdvlr encounter nhdtnkebe23/18/2024 9:00 AM EST Office Visit [facility] Neurology [address] [place] [address] Virgen Campos MD [address] [place] [address] [facility] NeurologyStart: 06-03-2023 End: 75-34-9025Ipjfcxl encounter vyvvrgqkb67/10/2024 11:00 AM EST Office Visit [facility] Cardiology [address] [place], [place] Stephany Pelayo PA-C [address] [place] [address] Cristy Najera MD [address] [place] [address] [facility] CardiologyStart: 05-28-2023 End: 84-18-0670Dzoi visit05/28/2023 8:00 AM EST Home Care Visit [facility] [address] [place] [address] Sharla Paulino [facility]AG[facility]New[facility] HealthStart: 05-26-2023 End: 69-48-6844Xalp visit05/26/2023 8:00 AM EST Home Care Visit [place] [address] [place] [address] Sharla Paulino PSAG[facility]New[facility] HealthStart: 45-46-1307Olrkfozo screeningDiabetic Eye ExamOhioHealthComment on above:Postponed from 1987 (Per Other Best Practice Guidelines)Start: 05-21-2023 End: 26-45-6146Ydin visit05/21/2023 8:00 AM EST Home Care Visit [facility] [address] [place] [address] Sharla Paulino PSAG[facility]New[facility] HealthStart: 05-19-2023 End: 56-22-5208Wfbv visit05/19/2023 8:45 AM EST Home Care Visit [facility] [address] [place] [address] Sharla Paulino PSAG[facility]New[facility] HealthStart: 05-15-2023 End: 46-00-1647Ipmnyns encounter procedureGalion Hospital [facility]icians Primary Care Start: 05-14-2023 End: 26-54-7631Oygw visit05/14/2023 8:00 AM EST Home Care Visit [place] [address] [place] [address] [facility]la [facility]ino [facility] HealthStart: 05-12-2023 End: 70-61-9620Wsgb visit05/12/2023 8:45 AM EST Home Care Visit [facility] [address] [place] [address] Sharla Paulino [facility] HealthStart: 05-07-2023 End: 05-53-8734Yeaactg encounter /14/2023 1:00 PM EST Office Visit [facility] Neurology [address] [facility] [address] [place] [address] Virgen Campos MD [address] [facility] [address] [place] [address] [facility] NeurologyStart: 05-07-2023 End: 72-96-1389Yeze visit05/07/2023 8:00 AM EST Home Care Visit [place] [address] [place] [address] Sharla Paulino [facility] HealthStart: 05-05-2023 End: 25-61-0892Itec visit05/05/2023 8:45 AM EST Home Care Visit [place] [address] [place] [address] Sharla Paulino [facility] HealthStart: 04-30-2023 End: 90-40-9306Vppy [facility]Middletown [facility] HealthStart: 04-29-2023 End: 35-96-8254Mnpi visitOhioHealth [facility] HealthStart: 04-28-2023 End: 70-38-0202Wrks visit04/28/2023 10:15 AM EST Home Care Visit [place] [address] [place] [address] Sharla Paulino [facility] HealthStart: 04-27-2023 End: 18-46-8973Mhjv visitMiddletown [facility] HealthStart: 04-27-2023 End: 85-47-9494Plvo visit04/27/2023 4:30 AM EST Home Care Visit [place] [address] [place] [address] aCrlitos Carrera [facility] HealthStart: 04-24-2023 End: 84-56-1798Pchm visit04/24/2023 7:30 AM EST Home Care Visit [place] [address] [place] [address] Carlitos Carrera [facility] HealthStart: 04-23-2023 End: 31-83-3839Uknr visit04/23/2023 12:30 PM EST Home Care Visit [place] [address] [place] [address] Radha Jameson [facility] HealthStart: 04-23-2023 End: 34-17-7948Akoe visit04/23/2023 9:15 AM EST Home Care Visit [place] [address] [place] [address] Sharla Paulino [facility] CenterStart: 04-22-2023 End: 47-44-5144Ljam [facility] HealthStart: 04-21-2023 End: 41-03-7997Vpgy visit04/21/2023 3:30 PM EST Home Care Visit [place] [address] [place] [address] [facility] HealthStart: 04-21-2023 End: 73-06-8463Gycf visit04/21/2023 12:30 PM EST Home Care Visit [place] [address] [place] [address] Radha Jameson [facility] HealthStart: 04-21-2023 End: 96-66-5705Ogwr visitClinton [facility] HospitalStart: 04-20-2023 End: 33-48-9369Wkyh visitClinton [facility] HospitalStart: 04-17-2023 End: 92-42-2176Ahyj visitCl[facility] HospitalStart: 04-15-2023 End: 78-86-3471Vbuh visitClinton Memorial HospitalStart: 71-43-6016Drqrlpkcfj A1c owbcafznhukV1HNygfLmkqqbXqkfc: 04-14-2023 End: 46-07-7974Unpv visit04/14/2023 12:15 PM EST Home Care Visit [facility] [address] [place] [address] Carolina Boston, [facility] CenterStart: 04-14-2023 End: 98-51-5096Lkod visit04/14/2023 10:15 AM EST Home Care Visit [place] [address] [place] [address] Sharla Paulino, [facility] CenterStart: 04-13-2023 End: 69-91-0618Bujq visit04/13/2023 Home Care Visit [place] [address] [place] [address] Tiny Arias PTA [facility]: 04-10-2023 End: 60-44-1070Ahxo visit04/10/2023 5:45 AM EST Home Care Visit [facility] [address] [place] [address] Cece Colin, [facility]Start: 04-09-2023 End: 19-09-0567Ydke visitClinton Memorial HospitalStart: 04-08-2023 End: 32-53-4339Tnuz visit04/08/2023 11:30 AM EST Home Care Visit [place] [address] [place] [address] Carlitos Carrera, [facility] HealthStart: 04-07-2023 End: 69-45-6224Gteo visitMiddletown Hospital HealthStart: 04-03-2023 End: 24-37-3509Mqhb visit04/03/2023 11:15 AM EST Home Care Visit [facility] [address] [place] [address] Sharla Paulino, PSAMiddletown [facility] HealthStart: 04-03-2023 End: 19-85-1618Mqse visit04/03/2023 8:30 AM EST Home Care Visit [facility] [address] [place] [address] Cece Colin, OTMiddletown Hospital HealthStart: 04-03-2023 End: 72-83-7367Vefe visit04/03/2023 4:30 AM EST Home Care Visit [facility] [address] [place] [address] Karen Prather, PTClinton Memorial HospitalStart: 02-09-2023 End: 71-78-0424Ujtrawm encounter mobukjnyw22/18/2023 2:45 PM EDT Office Visit [facility] Orthopedics [address] [facility] [place], [place] Josué Christianson, DO [address] [facility] [place] [address] [facility] OrthopedicsStart: 13-44-5589XJZRT-19 VACCINE ( season)COVID-19 VACCINE ()[facility] CenterStart: 31-98-4927VCKTG-19 VACCINE ()COVID-19 VACCINE ( season)[facility]: 49-12-0406DWQFR-19 Vaccine ()COVID-19 Vaccine ()[facility]Start: 04-12-2011Uakwzopbf vaccinationSequential Influenza Vaccine (#1)[facility]: 51-46-3958JmvzlafqkLutheran Hospitaltart: 70-65-6043XH DSA (Angiogram) W/TLA/Stent Left Leg (Left)OR DSA (Angiogram) W/TLA/Stent Left Leg (Left)[facility] 08-22-2022 [facility]: 08-12-2321Edbxh limb angiographyIR Angiogram Left Leg (Left)[facility]: 08-21-2022 Referral to vascular surgeonLutheran Hospitaltart: 08-20-2022 Blood culture for bacteria, including anaerobic screenBlood CultureLutheran Hospitaltart: 37-47-9149Kzrieuer of Left Foot Skin, External ApproachDrainage of Left Foot Skin, External ApproachLutheran Hospitaltart: 61-86-8541Uyrixwkl to infectious diseases physicianLutheran Hospitaltart: 84-82-4056Tmmnqtjv admissionLutheran Hospitaltart: 22-69-5460Dilwkkiq to podiatristLutheran Hospitaltart: 88-00-2954Btbde chest X-rayXR chest 1V portableLutheran Hospitaltart: 69-37-4992E-ray of left footXR foot LT min 3V*[facility]: 31-67-0077ZH Chest Single viewLutheran Hospitaltart: 84-11-7723GS Foot - left GE 3 ViewsLutheran Hospitaltart: 16-70-5288Dhdbxrqbr for malignant neoplasm of colon [facility] HospitalroAk[facility] HospitalStart: 66-52-2417Xghwlhdsrriv Vaccine: Ped or At-Risk (2 - PCV) Pneumococcal Vaccine: Ped or At-Risk (2 - PCV)[facility]: 01-23-2022 Influenza vaccinationFlu vaccine (#1)[facility]: 04-13[facility]2021 COVID-19 Vaccine (2 - Pfizer series)COVID-19 Vaccine (2 - Pfizer series) [facility] [place], [facility] By [facility] HealthHealthStart: 68-84-3639YTBCD-19 Vaccine (3 - Mixed Product series)COVID-19 Vaccine (3 - Mixed Product series)[facility] HospitalStart: 95-60-6827NlR9x (Bld) [Mass fraction]V3AYmtaXjgtceFzpin: 74-13-2192Zjtyocrmh [Moles/volume] in Serum or PlasmaPOTASSIUMProMedica Fostoria Community Hospitaltart: 07-19-0783Tuuhehnvjv A1c rwcauotxewgJSU5L TESTProMedica Fostoria Community Hospitaltart: 10-89-4938Bkmcovnbx for malignant neoplasm of breastMetroHealthStart: 24-16-0231Qgocqasmi vaccination SEQUENTIAL INFLUENZA VACCINE (#1)[facility] Work Phone: Start: 58-29-9438Xswfv panelLipSouthern Virginia Regional Medical CenterStart: 21-57-0976PiE2bHFAZOJVODA S4WKkxwSrfacy Work Phone: Start: 18-65-3101Yuego screening for proteinUrine MicroalbuminGaioHealthStart: 98-31-4684Tzwvr, microalbuminURINE MICROALBUMIN [facility] Work Phone: Start: 07-79-3133Styao panelLIPFirelands Regional Medical Center CenterStart: 55-34-1414Dgdnm screening for proteinMercy Health Anderson Hospital Start: 72-02-5141Ysrdgsjnt for malignant neoplasm of cervixInova Alexandria Hospitalart: 18-41-4933Sryhadzfm for malignant neoplasm of cervixInova Alexandria Hospitalart: 49-20-2632RXwW/Tdap/Td vaccine (1 - Tdap)DTaP/Tdap/Td vaccine (1 - Tdap)[facility]ENTERStart: 69-17-3366Oekdnzawh B vaccinationProMedica Fostoria Community Hospitaltart: 75-21-8346Kprxn BMI Follow Up PlanAdult BMI Follow Up [facility]Start: 78-86-8549Vhyogbhgw C antibody, confirmatory testHepatitis C ScreeningOhioHealthStart: 76-43-9175Kmqqwvlff C screeningSovah Health - [place]ville: 72-37-2231DYZLB-19 Vaccine (1 of 2) COVID-19 Vaccine (1 of 2)[facility] HospitalStart: 53-62-9380QLW screeningInova Alexandria Hospitalart: 49-90-8798Hsiabojcgm ScreenDepression ScreenBON WOOD COUNTY HOSPITALStart: 86-02-7456Lyrdajxp foot examination (regime/therapy)[facility] Start: 08-97-8450Bkwgjuac screeningOhioHealthStart: 71-93-4807Mpqyzvxtba examination and evaluationOPHTHALMOLOGY EXAMOhioAkron Children'S Hospital Work Phone: Start: 31-75-8543Ihqqx screening for proteinUrine (micro)albumin/creatinine ratio - DiabetesOhioHealthStart: 39-47-2415Kgvmxim and physical examination, annual for health [facility] VisitGaioAkron Children'S Hospital Start: 44-04-5676Nghxmon-mumps-rubella vaccinationMMR Vaccines (1 of 1 - Standard series)[facility] HospitalStart: 14-82-5564STKUA-19 Vaccine (#1)COVID-19 Vaccine (#1)[facility]ITALStart: 65-26-5694Rqojrcgi foot examinationDIABETIC FOOT EXAMOSU [facility]Healthtart: 73-07-0991Bhcytgvh screeningEYE EXAMOSU [facility] CenterStart: 99-08-9496Vmmlkryxn C screeningHEPATITIS C VIRUS SCREENINGOSU [facility]Healthtart: 72-07-2133Aqhhwrbjl for malignant neoplasm of cervixPAP SMEAROhRiverview Health Institute Work Phone: Start: 72-46-4183Zufwmlzyv for malignant neoplasm of colonMetroHealthStart: 80-03-5554Midetpzdj mammographyMammogramOhioHealthStart: 71-35-4573Pqqgqoo vaccinationOhioHealth Mansfield Hospital Work Phone: Start: 86-04-5841Ylcxgcy stimulating hormone measurementBarney Children's Medical Centertart: 08-26-0277Jrvexxm Counseling Tobacco CounselingLake County Memorial Hospital - WestAerobic microbial cultureWound Aerobic Culture Microbiology Routine 06/05/2020 11:32 AM ESTOhioHealthBacteria identified Cx Nom (Bld)Blood Culture Aerobic/Anaerobic Microbiology Routine 06/03/2020 2:39 PM ESTOhioHealthBacteria identified in Blood by Culture [facility] Work Phone: Bacteria identified in Unspecified specimen by Anaerobe cultureOhioHealth End: 50-08-7481Oxurz metabolic 2000 panel - Serum or PlasmaBasic Metabolic Panel Lab Routine Primary hypertension 1 Occurrences starting 09/03/2023 until 09/02OhioHealthComment on above:1 Occurrences starting 09/03/2023 until 09/02/2024 End: 37-27-1262Enwlp metabolic 2000 panel - Serum or PlasmaBasic Metabolic Panel Lab Routine SOLO (acute kidney injury) (HCC) 1 Occurrences starting 01/27/2024 until 01/26/2025[facility] Work Phone: Comment on above:1 Occurrences starting 01/27/2024 until 01/26/2025 End: 07-30-4986Yzmpv typing serologic aboABO RH TYPE Lab STAT One time for 1 Occurrences starting 10/07/2022 until 10/07/2022MetroHealthComment on above:One time for 1 Occurrences starting 10/07/2022 until 10/07/2022 End: 80-06-0032Oinmrhnbrts difficile toxin assayClostridium Difficile Testing Microbiology Routine Diarrhea, unspecified type 1 Occurrences starting 03/22/2024 until 03/22/2025OhioHealthComment on above:1 Occurrences starting 03/22/2024 until 03/22/2025 End: 90-94-4602Vgventsm blood count with white cell differential, manualCBC and Differential Lab Routine Diarrhea, unspecified type Abdominal cramping 1 Occurrences starting 03/22/2024 until 03/22/2025OhioHealthComment on above:1 Occurrences starting 03/22/2024 until 03/22/2025 End: 30-91-9542Vshuprqu blood count with white cell differential, manualCBC and Differential Lab Routine Primary hypertension 1 Occurrences starting 08/02/2024 until 08/02/2025[facility] Work Phone: Comment on above:1 Occurrences starting 08/02/2024 until 08/02/2025 End: 88-24-8014Kitugtibksgye metabolic 2000 panel - Serum or PlasmaComprehensive Metabolic Panel Lab Routine RUQ abdominal pain 1 Occurrences starting 10/13/2023 until 10/12/2024OhioHealthComment on above:1 Occurrences starting 10/13/2023 until 10/12/2024 End: 77-27-9989Mlsohhpbdnasz metabolic 2000 panel - Serum or PlasmaComprehensive Metabolic Panel Lab Routine Diarrhea, unspecified type Abdominal cramping 1 Occurrences starting 03/22/2024 until 03/22/2025OhioHealthComment on above:1 Occurrences starting 03/22/2024 until 03/22/2025 End: 33-09-0487LNX (STANDARD)EEG (Standard) Neurology Routine Seizure ([facility]) 1 Occurrences starting 09/16/2023 until 09/15/2024[employer] Work Phone: Comment on above:1 Occurrences starting 09/16/2023 until 09/15/2024External Lab Urine Drug ScreenExternal Lab Urine Drug Screen Lab Routine Encounter for monitoring opioid maintenance therapy Ordered: 05/13/2024 [employer] Work Phone: Comment on above:Ordered: 05/13/2024 End: 83-42-8121Ifphmdcqlqbxsaaq pathogens DNA and RNA panel - Stool by EBONIE with non-probe detectionStool/GI PCR Panel Microbiology Routine Diarrhea, unspecified type 1 Occurrences starting 03/22/2024 until 03/22/2025[employer] Work Phone: Comment on above:1 Occurrences starting 03/22/2024 until 03/22/2025 End: 24-02-8073Knrdzgmqph A1c/Hemoglobin.total in BloodHemoglobin A1c Lab Routine Type 2 diabetes mellitus with diabetic polyneuropathy, with long-term current use of insulin ([facility]) 1 Occurrences starting 09/03/2023 until 09/02/2024 [employer] Work Phone: Comment on above:1 Occurrences starting 09/03/2023 until 09/02/2024 End: 24-32-7961LT Breast - bilateral ScreeningMammography Screening [place] Bilateral Imaging Routine Encounter for screening mammogram for malignant neoplasm of breast 1 Occurrences starting 05/06/2023 until 07/07/2024[employer] Work Phone: Comment on above:1 Occurrences starting 05/06/2023 until 07/07/2024 End: 48-00-4537KP Breast - bilateral ScreeningMammography Screening Bilateral Imaging Routine Encounter for screening mammogram for malignant neoplasm of breast 1 Occurrences starting 08/02/2024 until 10/02/2025OhioHealthComment on above:1 Occurrences starting 08/02/2024 until 10/02/2025MG Breast - bilateral ScreeningProtestant Deaconess HospitalMicroalbumin measurement, urine, quantitativeMicroalbumin, Urine, Random Lab Routine Type 2 diabetes mellitus with diabetic polyneuropathy, withlong-term current use of insulin (HCC) Ordered: 12/02/2023[facility] Work Phone: Comment on above:Ordered: 12/02/2023 End: 35-73-0778IX Knee - right WO contrastMR Knee Right Without Contrast Imaging Routine Chronic pain of right knee 1 Occurrences starting 03/08/2025 until 03/08/2026OhioHealthComment on above:1 Occurrences starting 03/08/2025 until 03/08/2026 End: 82-34-9433NX Lumbar spine WO contrastMR Lumbar Spine Without Contrast Imaging Routine Back pain with radiculopathy Degeneration of intervertebral disc of lumbar region with discogenic back pain and lower extremity pain 1 Occurrences starting 03/08/2025 until 03/09/2026[facility] Work Phone: comment on above:1 Occurrences starting 03/08/2025 until 03/09/2026Patient EducationMer[facility] Health [facility] Work Phone: Patient referralMercy Health Perrysburg Hospital Ctr Work Phone: Procedure on tissue specimenOhioHealth Work Phone: End: 00-76-6067Biemaulgngy timePROTHROMBIN TIME AND INR Lab STAT One time, now for 1 Occurrences starting 10/07/2022 until 10/07/2022MetroHealthComment on above:One time, now for 1 Occurrences starting 10/07/2022 until 10/07/2022 End: 52-30-0815YZ Spine epidural space Views W contrast ITTHE [facility] Work Phone: Comment on above:One time, now for 1 Occurrences starting 10/06/2022 until 10/06/2022 End: 83-51-2364Ssweu levetiracetam measurementLevetiracetam Level Lab Routine Seizures (HCC) 1 Occurrences starting 03/22/2024 until 03/22/2025[facility] Comment on above:1 Occurrences starting 03/22/2024 until 03/22/2025 End: 13-75-0115Glatvnfclbohqd time partial plasma/whole bloodPARTIAL THROMBOPLASTIN TIME Lab STAT One time, now for 1 Occurrences starting 10/07/2022 until 10/07/2022[employer] Work Phone: Comment on above:One time, now for 1 Occurrences starting 10/07/2022 until 10/07/2022 End: 14-99-5619BEERRXHETZ RISK SCREENThrombotic Risk Screen Lab Routine Lacunar stroke (HCC) 1 Occurrences starting 09/16/2023 until 09/15/2024OhioHealthComment on above:1 Occurrences starting 09/16/2023 until 09/15/2024 End: 78-62-2570Mtdeleaaziv [Units/volume] in Serum or PlasmaTSH with Reflex Free T4 Lab Routine Hypothyroidism, unspecified type 1 Occurrences starting 01/27/20 until 01/26/2025OhioHealthComment on above:1 Occurrences starting 01/27/2024 until 01/26/2025 End: 62-86-3023KE AbdomenUS Abdomen Complete Imaging Routine RUQ abdominal pain 1 Occurrences starting 10/13/2023 until 10/12/2024OhioHealthComment on above:1 Occurrences starting 10/13/2023 until 10/12/2024 End: 19-83-9948Wqcrpoc D, 25-hydroxy measurementVitamin D, Total, 25-OH Lab Routine Vitamin D deficiency 1 Occurrences starting 09/03/2023 until 09/02/2024 OhioHealthComment on above:1 Occurrences starting 09/03/2023 until 09/02/2024 End: 19-52-7689OF Chest PA and Lateral and AP lateral-decubitusXR Chest AP/PA and LAT Imaging Routine Subacute cough 1 Occurrences starting 10/13/2023 until 10/12/2024[facility] Work Phone: Comment on above:1 Occurrences starting 10/13/2023 until 10/12/2024 End: 34-98-1029JH Chest PA and Lateral and AP lateral-decubitusXR Chest AP/PA and LAT Imaging Routine Pleuritic chest pain 1 Occurrences starting 02/11/2024 until02/10/2025[facility] Work Phone: Comment on above:1 Occurrences starting 02/11/2024 until 02/10/2025 End: 46-28-4551XS Foot - right 3 ViewsXR Foot Right 3+ Views (Standard) Imaging Routine Right foot ulcer, with fat layer exposed (HCC) 1 Occurrences starting 09/22/2023 until 09/21/2024[facility] Work Phone: comment on above:1 Occurrences starting 09/22/2023 until 09/21/2024 End: 79-17-3006WZ Hand - left 3 ViewsXR Hand Left 3+ Views (Standard) Imaging Routine Left hand pain 1 Occurrences starting 02/23/2025 until 02/23/2026 OhioHealthComment on above:1 Occurrences starting 02/23/2025 until 02/23/2026 End: 86-24-6687YV Knee - bilateral 2 ViewsXR Knees Bilateral 2 Views Each (Standard) Imaging Routine Chronic pain of both knees 1 Occurrencesstarting 03/22/2024 until 03/22/2025OhioHealthComment on above:1 Occurrences starting 03/22/2024 until 03/22/2025 End: 21-56-3239VH Knee - bilateral 4 ViewsXR Knees Bilateral 4+ Views Each (Specify Views in Comments) Imaging Routine Pain in both knees, unspecified chronicity 1 Occurrences starting 08/18/2024 until 08/18/2025[facility] Work Phone: Comment on above:1 Occurrences starting 08/18/2024 until 08/18/2025 End: 51-63-2708AR Knee Right 4+VWS (Note in Comments)XR Knee Right 4+VWS (Note in Comments) Imaging Routine Right knee pain, unspecified chronicity 1 Occ urrences starting 02/04/2023 until 02/05/2024[facility] Work Phone: Comment on above:1 Occurrences starting 02/04/2023 until 02/05/2024 End: 98-28-4868HO Lumbar spine 2 or 3 ViewsXR Lumbar Spine 2-3 Views (Standard) Imaging Routine Lumbar pain 1 Occurrences starting 08/09/2024 until 08/08/2025 [facility] Work Phone: Comment on above:1 Occurrences starting 08/09/2024 until 08/08/2025 End: 67-51-4679KO Lumbar spine Views W flexion and W extensionXR Lumbar Spine Standard with Flex/Ext 4+ Views Imaging Routine Lumbar stenosis with neurogenic claudication 1 Occurrences starting 02/23/2025 until 02/23/2026OhioHealthComment on above:1 Occurrences starting 02/23/2025 until 02/23/2026 End: 00-44-0587QS Sacrum and Coccyx 2 ViewsXR Sacrum And Coccyx 2+ Views Imaging Routine Fall, initial encounter 1 Occurrences starting 02/23/2025 until 02/23/2026[facility] Work Phone: Comment on above:1 Occurrences starting 02/23/2025 until 02/23/2026 Immunizations Immunization DateImmunizationNotesCare RtsbjnlmEmzckptb57-52-5272Fqdoxysq, trivalent, recombinant, injectable influenza vaccine, preservative Katie Pelayo PA-C Work Phone: [phone]uyblc96-37-0218bainrhxib virus vaccine, unspecified formulationKiley Hanley WALlvcIuxqoc37-35-0369zcnxvkrjh, injectable, quadrivalent, preservative freeAma Wilcox WZIssxGbjoec04-76-4353nqvunwapf, seasonal, injectableStephanie [facility] systemrt TRREbdzXvxidt53-79-1193Ypwdwfxvsvhp Conjugate 20-Valent (Prevnar 20)Ama Wilcox YIDsivQvtqcu17-70-2928rmo vaccine el8112-53,6mos up, (FLUZONE QUAD/AFLURIA QUAD) Vilma Pelayo PA-C Work Phone: [phone]izfsq51-29-1330jxq vacc su4628-88 6mos up,PF, (FLUZONE QUAD/FLULAVAL QUAD/FLUARIX QUAD) 60 mcg (15 mcg x 4)/0.5 mLSyrg syringe Stephany Pelayo PA-C Work Phone: [phone]vwlqk98-85-8775rkcbfuuqpszf conj. 20-valent (PREVNAR 20) 0.5 mL vaccineStephany Pelayo PA-C Work Phone: [phone]oxxpq36-52-2279voaqjostb virus vaccine, unspecified formulationSherribud Adams HHAIfjsMalaug07-91-2067cpohauinksgt conj. 20-valent (PREVNAR 20) vaccine 0.5 mLHarshad Rizzo MD Work Phone: [phone]nnzsx23-71-5034Privkqhibuoc Conjugate 20-Valent (Prevnar 20)Mayesidra Ramirez UCRTobhPvduii24-01-6774rllnqvrvn, injectable, quadrivalent, preservative freeBrent Mellis DO Work Phone: [phone]ppuay66-97-4950npykwekkg, seasonal, injectable Ashutosh MENARD [facility] HospitalComment on above:Reason for Medication: Other (see comment)59-88-7334kxpxccl toxoid, reduced diphtheria toxoid, and acellular pertussis vaccine, Martha Velez [facility]10-13-2021influenza virus vaccine, unspecified formulationBreanna Gu [facility]10-13-2021influenza, injectable, quadrivalent, preservative freeAlix Andrés STEVENS Work Phone: [phone]qNwhmid67-24-0461spztgvoikitp polysaccharide vaccine, 23 valentBreanna Gu [phone]-VsvecOur Lady Of [facility] 09-949935-15-4448PDRUE-03 mRNA, Comelsa (Pfizer)FINISHING TECHNICIAN-C Laurent Franco Work Phone: [facility]09-25-2021SARS-CoV-2 (COVID-19) Ad26 vaccine, recombinantBreanna Gu [facility]07-11-2021Moderna SARS-CoV-2 VaccinationBrent Mellis DO Work Phone: [phone]cjfam77-80-2435kjgqulmls virus vaccine, unspecified formulationBreanna Gu [phone]-GsmtrOur Lady Of [facility] Comment on above:Result Comment: 2021-09-30: .Result Comment: 2021-09-30: .87-65-8302avbchxcvw, injectable, quadrivalent, preservative freeDlong beach community hospitald SdqoIhaeaIvvybu20-63-9937tjgplkzsz virus vaccine, unspecified formulationBreanna Gu 177-0613Xzfact-YpmbpOur Lady Of [facility] 0490224-20-9059cxtxddbqw, injectable, quadrivalent, preservative freeJustin Lavonne [facility] Work Phone: [phone]uohpm72-28-8515hhmpeivkg, seasonal, injectable Jocelyn Bowen MD Work Phone: [phone]rMpfzjr06-84-3257cojincbiq virus vaccine, unspecified formulationBreanna Gu [phone]-GabchOur [facility] Of [facility] 1259305-75-8335vqljtjfww, injectable, quadrivalent, contains preservativeMalcolmx Andrés STEVENS Work Phone: [phone]sJgndij78-45-8202fkhgerrvw, injectable, quadrivalent, preservative freeBrent Mellis DO Work Phone: [phone]wzfar47-60-6446zjnidlbgz virus vaccine, unspecified formulationDavid Kaiser Foundation HospitalLinsey WO[facility] COUNTY HOSPITALEHKAED18-64-0507ybarxvzto virus vaccine, whole virusBrent Mellis DO Work Phone: [phone]lwsdh73-84-0464khowcqgix, injectable, quadrivalent, contains preservativeSergio Resendez MD Work Phone: [facility] HospitalWwmvgmeutz58-47-4717tghnochlo, wholeArianneadalgisa Herediaell [phone]-YaslhOur Lady Of [facility] 02065290-66-5122efuvdgsxftcm polysaccharide vaccine, 23 valentNo XvyrrnCoifAqljnp21-18-9311aupmrqkxu virus vaccine, unspecified formulationBreanna Gu [phone]-DvtklOur Lady Of [facility] 11516929-38-4413rgjehricv, seasonal, injectableAlix Andrés STEVENS Work Phone: [facility] Payers DatePayer CategoryPayerPolicy [id number] [facility] [id number] 2023Self-pay2021Medicaid (Managed Care)[id number] 2015Medicaid [employer]ED MEDICAID [employer] MEDICAID [id number] 2014-Present [id number] 2015Medicaid [id number] 2.840.1.969408.3.57[id number] 2.16840.1.798650.3.57[id number] 2.840.1.458229.3.579.[id number] 2.840.1.693152.3.579.[id number] 2.0.1.523236.3.579.2.[id number] 2.0.1.595308.3.579.2.57006-67-4346Rlhfdpd0737955 2.0.1.755233.3.579.2.99728-84-9080Uqcsolu9011988 2.0.1.907476.3.579.2.77754-37-1504Lgivrnr8786964 2.0.1.627307.3.579.2.72711-46-1165Wrowdec9209830 2.0.1.760773.3.579.2.74752-03-6263Nyzyfmx5605130 2.0.1.594870.3.579.2.03987-11-9021Faafvqh7224742 2.0.1.072456.3.579.2.77485-69-0408Dbvdaac7622858 2.840.1.839260.3.579.2.15686-15-8529Rtbojxr8214359 2.840.1.796038.3.579.2.96243-85-6544Wdjyzmg1705222 2.16.840.1.108773.3.579.2.93716-81-7038Orudumr9914930 2.16.840.1.447692.3.579.2.69293-42-1366Qwjigff3871276 2.16.840.1.497262.3.579.2.35517-89-7712Cxnrtww7850894 2.16840.1.369477.3.579.2.84484-99-8555Dcbwzol4506543 2.16840.1.102105.3.579.2.97771-85-2504Yjmxmla1845616 2.16840.1.831595.3.579.2.11181-84-1300Dgmmerx8425208 2.840.1.840996.3.579.2.47420-36-8778Yshugxa5220336 2.16840.1.857405.3.579.2.99121-08-0779Ndjknpz7355021 2.840.1.564056.3.579.2.39256-03-2673Ffwdagg0625680 2.840.1.252878.3.579.2.80249-20-6910Mfclfmv4677813 2.840.1.466719.3.579.2.76829-29-2066Nrmwhdl919339232 2.16840.1.975427.3.579.2.91327-55-1249Pjwjdep798878653 2.16840.1.608683.3.579.2.36765-33-7730Hnwqsid476095843 2.16840.1.683414.3.579.2.66733-92-8506Hwkanos002973211 2.16840.1.349604.3.579.2.22684-93-5238Lmqcmmk636237228 2.16840.1.900946.3.579.2.12827-25-3570Aiwxeft904871619 2.16.840.1.378430.3.579.2.97961-25-3952Oshuloa934573474 2.840.1.891873.3.579.2.71628-68-9657Vteagbz094289616 2.840.1.010095.3.579.2.32799-52-0435Ulvnokn295973969 2..1.424497.3.579.2.70793-36-5902Ywbchno985020932 2.0.1.954332.3.579.2.79422-25-6809Gajfksg033632605 2.0.1.049999.3.579.2.30468-73-5463Dqrjutj196100485 2..1.069890.3.579.2.30774-25-0376Rlrowvs437072189 2.0.1.310816.3.579.2.00709-90-0775Amvioji968066689 2.0.1.285236.3.579.2.54569-85-1290Kzqeuoy897963915 2.0.1.558962.3.579.2.87766-21-8903Mrfasmi451669168 2.0.1.560004.3.579.2.81138-22-4085Wyapeyy359198495 2.840.1.134922.3.579.2.22259-38-4889Tmhrtwb278951766 2.840.1.533424.3.579.2.383792-54-9249Waahrfp781145581 2.840.1.914226.3.579.2.248209-79-2106Acziqyy65710401 2.840.1.800210.3.579.2.03686-90-3511Xjmpbou61504338 2.840.1.122532.3.579.2.01418-33-1682Rytsklf13531672 2.840.1.883526.3.579.2.261078-21-5780Xlhplmi3662544 2.0.1.462220.3.57[id number] 2.0.1.621371.3.57[id number] 2.0.1.880604.3.57[id number] 2.0.1.807479.3.57[id number] 2..1.068035.3.579.2.6[id number] 2..1.667971.3.579.2.24933-84-2942Uaipzwr953111211 2.0.1.801186.3.57[id number] 2..1.659453.3.579.2.37579-22-3048Qbwxuhj693171905 2.0.1.832681.3.57[id number] 2.840.1.783657.3.579.2.64971-89-5507Kojauqb446642021 2.16.840.1.729660.3.579.2.07331-03-8705Xsanqqu049552425 2.16.840.1.381274.3.579.[id number] 2.16.840.1.864197.3.579.2.92731-91-3766Abswqda775997669 2.16.840.1.909806.3.579.[id number] 2.16.840.1.410555.3.579.2.903 [id number] 2.16.840.1.722208.3.249.13 [id number] dlzuq798-1255-3083-752x-[id number] 2.16.840.1.6[id number] 2.16.840.1.103907.3.579.2.543 Social History DateTypeDetailFacilityStart: 06-26-2017 End: 88-70-2376Licbohr smoking status NHISFormer smokerOhioHealth Work Phone: Start: 11-22-1996 End: 33-58-7370Spiadim of tobacco useCigarette SmokerOhioHealth Work Phone: Start: 06-26-2017 End: 75-45-4939Hjzsgrvajn smoked current (pack per day) - ReportedOhioHealth Work Phone: Start: 55-01-2375Wqn Assigned At BirthNot on file [facility] Work Phone: Start: 06-03-2020 End: 67-12-6707Kkdocmh use and exposureNever usedOhioHealthStart: 06-03-2020 End: 79-69-7758Bqpzvcm intakeCurrent non-drinker of alcohol (finding)[facility] Start: 11-28-2021 End: 48-12-3419Ocaadaut to SARS-CoV-2 (event)Not sureOhioHealthStart: 08-06-2022 Tobacco smoking statusNePremier Health Miami Valley Hospital Northtart: 01-31-2023 End: 37-78-4479Tza Assigned At [facility] access hospital [employer] Other Start: 11-22-1996 End: 17-58-9663Cirjwrp of tobacco useCurrent smokerTHE DIMOCK CENTERSmartCup Phone: start: 03-55-1441Edrmncy use and exposureFormer smokeless tobacco userCLEARSKY REHABILITATION [facility] Social Project Phone: TobaccoCurrent vaping or e-cigarette use Smokeless Tobacco Use:. VapingKeenan Private HospitalTobacco smoking statusNo Smoking Status EnteredSalem City Hospitaltart: 55-45-0623Ktd Assigned At [facility]ullTobacco smoking status NHIS Tobacco smoking consumption unknownNOFL HealthcareStart: 01-27-2023 End: 68-72-1562Dvfqwgi smoking status NHISSmokes tobacco dailyOhioHealthHow hard is it for you to pay for the very basics like food, housing, medical care, and heatingHardOhioHealth Mansfield Hospital Work Phone: In the past 12 months, [...] (I/we) got money to buy more.Sometimes trueOhioHealthStart: 64-87-2900Mayjdow Comment recently restartedANALIOur Lady Of Mercy HospitalHistory of tobacco usePassive smoker OhioHealthStart: 21-41-8806Gfpkkmv CommentVapeOhioHealthStart: 01-27-0919Zeoyhft CommentVaping 6 mg nicotineOhioHealthWithin the last year, have you been afraid of your partner or ex-partner?NoOhioHealth(I/We) worried whether (my/our) food would run out before (I/we) got money to buy more.Never trueOhioHealthStart: 89-44-5701Kegftqg smoking status NHISNever smoked tobaccoNOFL HealthcareStart: 66-57-6177Ppcyjazfj beverage intakeDeferNOFL HealthcareStart: 66-50-237651 Per Day/1 Pack20 Per Day/1 PackLancaster Municipal Hospital Work Phone: Start: 67-51-9309G-CigarettesE-CigarettesLancaster Municipal Hospital Work Phone: Start: 40-30-1848YbhMojZctz [facility] Work Phone: Start: 48-84-0794RrIrGyokAultman Hospital Work Phone: Start: 28-42-5121MtrkXvrxOmnb [facility] Work Phone: Start: 34-87-2058SnlmuqXwrpnqNeom [facility] Work Phone: Start: 19-23-2252NwntaoxzAfzebojjOtmm [facility] Work Phone: Start: 65-13-2177vxqvunfcgazgsirethiibubtUoex [facility] Work Phone: Start: 12-26-2014 End: 54-50-7229JcqVlrtyo (finding)[facility] Hospitaltart: 09-13-2024 End: 07-55-6695Jrdzwilai beverage intakeEx-drinker (finding)[facility] SystemHow often to you have a drink containing alcohol?Monthly or lessProMedica Health SystemHow many standard drinks containing alcohol do you have on a typical day?1 or 2PTriHealth [facility] Hospital SystemHow often do you have 6 or more drinks on 1 occasion?NeverProFort Hamilton Hospital SystemStart: 81-17-8464Qczojdu CommentVapes nicotineProFort Hamilton Hospital SystemStart: 30-58-5515Eywrncu CommentrarePTriHealth [facility] SystemStart: 38-17-5978Usnxmxj CommentFormer Smoker 05/05/2019[facility] Medical Equipment Procedure CodeEquipment CodeEquipment Original TextEquipment IdentifierDates Phacoemulsification of cataract with intraocular lens implantationPosterior- chamber intraocular lens, pseudophakic ()[id number] FDAStart: 80-69-7239Iatulsxfq of central venous catheter (CVC) with subcutaneous port for chemotherapyVascular port/catheter()[id number] FDAStart: 09-22-2019 BiotronicTest Strips and Lancets, See Instructions, 1 box(es), 1, Test BID Freestyle Glucometer, [facility], SupplyStart: 21-18-2252Gjjs Strips and Lancets, See Instructions, 1 box(es), 1, Test BID Freestyle Glucometer, [facility], SupplyStart: 25-71-9662Appg Strips and Lancets, See Instructions, 1 box(es), 1, Test BID Freestyle Glucometer, [facility], SupplyStart: 43-23-5556Itlj Strips and Lancets, See Instructions, 1 box(es), 1, Test BID Freestyle Glucometer, [facility], SupplyStart: 32-17-1731Uxac Strips and Lancets, See Instructions, 1 box(es), 1, Test BID Freestyle Glucometer, [facility], Supply Start: 24-67-0283Mwqj Strips and Lancets, See Instructions, 1 box(es), 1, Test BID Freestyle Glucometer, [facility], SupplyStart: 13-95-4475Nimk Strips and Lancets, See Instructions, 1 box(es), 1, Test BID Freestyle Glucometer, [facility], SupplyStart: 55-70-5762Cvqd Strips and Lancets, See Instructions, 1 box(es), 1, Test BID Freestyle Glucometer, [facility], SupplyStart: 63-77-1585Cvca Strips and Lancets, See Instructions, 1 box(es), 1, Test BID Freestyle Glucometer, [facility], SupplyStart: [id number], [id number], [id number], [id number], [id number], [id number], [id number]: 10-12-2013 End: 39-25-2612Jcvb Strips and Lancets, See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 [facility]-14-[facility]25 Hospital Discharge instructions* Discharge Instructions* Elda Aguirre [...] Ophthalmology. Please follow up with her outpatient special delivery carrier Please follow your medication reconciliation carefully for new medications, changes in doses or medications that were stopped. If new medications are prescribed at discharge you can find further information about these medications in your discharge paperwork. * Appointments* Rick Thomas - 12/04/2024 3:50 PM EDT YOUR SCHEDULED APPOINTMENTS Dec 07, 2024 10:00 AM (Arrive by 9:45 AM) New Patient with Lindsay Johnson APRN-BEATRIZ [facility] ([facility]) [address] [place] [address] [address] [facility] [phone] Pt. should bring the following to [...] For NEW patients, MD will not prescribe alf pain medication. * Attachments The following attachments cannot be sent through Care Everywhere. * Checking your blood sugar at home (Qatari) * Insulin Lispro, ADULT (Qatari) * Insulin Glargine, ADULT (Qatari) * Aspirin, ADULT (Qatari) * Atorvastatin, ADULT (Qatari) * Metformin, ADULT (Qatari) * Levetiracetam, ADULT (Qatari) documented in this encounterLake County [facility]07-14-2025 Progress note* Discharge Planning Note - Jaky Sauceda - 12/05/2024 12:14 PM EDT DISCHARGE PLANNING NOTE Referral to [facility]- P# ; F# , [address] [facility] [place] (P# ; F# ) , [facility] - [facility] (P# ; F# ) [facility]07-[facility] Progress note* PT/OT/DIRECTOR OF ENTERPRISE STRATEGY - Jesús Singh, PT - 12/05/2024 12:01 [...] brain (-); Blood sugar 640- transferred to [facility] Neuro- MRI brain; B vision loss likely 2/2 hyperglycemic refraction error H- bipolar Dx- diabetic retinopathy, mild-moderate diabetic macular edema R eye Past Medical History: Diagnosis Date Arrhythmia Arthritis Bipolar disorder ([facility]) Bronchitis, chronic ([facility]) Chronic constipation Chronic kidney disease Depression Diabetes mellitus type 2, controlled ([facility]) 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 Meningitis Sudden [...] 6 Clicks: Basic Mobility Raw Score: 14 [facility] G Code Modifier: CK PT Treatment/Interventions: Functional [...] eval Equipment: RW, gait belt, ex cath Telemetry/Insulation Packer: Yes Oxygen Used: room air Other: (S) [...] Patient will perform bed mobility with Modified [place] Dates: Start: 12/05/24 Expected End: 12/22/24 Description: [...] vision Active Problems: Hyperosmolar hyperglycemic state (HHS) ([facility]) SOLO (acute kidney injury) HHS (hypothenar hammer syndrome) [facility] [employer] [id number] Progress note* Discharge Planning Note - Crista [...] transition rounds, barriers to discharge are: PT/OT adnreasals, needs to follow up with endocinologist, and new PCP appt was made by JUANA. . Discharge Plan: Home with Home care. CN met with patient. Patient provided choices for Home care [facility] tasked to send referrals to [address] and [facility] home care. Patient stated she lives on the first floor of her daughter's home off the dining room and her son lives in the basement. [employer] will continue to follow for any discharge needs. - Crista Leung RN 12/05/24 11:52 AM Addendum: PT/OT rec SNF. CN met with patient and discussed therapy recommendation. Patient stated NO to SNF option. [address] is possibly accepting for home care. Waiting on final decision from [address] Patient insists she lives on the first floor and her son is the one who lives In the basement bedroom. CN tried to call daughter. - Crista Leung RN 12/05/24 1:04 PM Blood sugars have stablized and patient will be discharged today.. CN met with patient to discuss that [address] home care could accept referral and patient stated she will have to Call Medicaid provider for transport. CN stayed to verify with Medicaid transport provider that the patient is discharging from [facility] going home, [facility] Nurse and attending physician notified . DC CRF completed and [facility] tasked to send DC orders to [address] - Crista Leung RN 12/05/24 3:35 PM [facility] [employer] [id number] Progress note* PT/OT/DIRECTOR OF ENTERPRISE STRATEGY - Tamiko Hoover OTR/Thuy - 12/05/2024 11:41 [...] brain (-); Blood sugar 640- transferred to [facility] Neuro- MRI brain; B vision loss likely 2/2 hyperglycemic refraction error PMH- bipolar Dx- diabetic retinopathy, mild-moderate diabetic macular edema R eye Past Medical History: Diagnosis Date Arrhythmia Arthritis Bipolar disorder ([facility]) Bronchitis, chronic ([facility]) Chronic constipation Chronic kidney disease Depression Diabetes mellitus type 2, controlled ([facility]) 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 Encourage patient or legal sales support representative to report early pain and ask [...] per policy 9. Teach patient or legal sales support representative interventions for comforting Outcome: Progressing Note: [...] at the bedside 7. Instruct patient/ patient sales support representative about use of safety devices 8. Include patient/ patient sales support representative in decisions related to safety Outcome: Progressing Note: Evaluation of progress towards goal: Patient remains injury-free amid hospitalization due to proper safety precautions. Rafael Chavira RN [facility]07-14-[facility] Plan of care note* Plan of Care [...] Score of =/> 25 or indicated by [facility] Rehab Assessment Goal: Patient should be free from fall Description: Interventions: 1. Matthews to environment 2. Hourly rounds addressing the [...] non-skid footwear 11. Teach patient and patient sales support representative to maintain environment for safety and [...] (cane, walker) within reach 19. Request patient sales support representative bring adaptive equipment/mobility aids from home or obtain and provide as needed 20. Consult pharmacy regarding effects of med's affecting mobility, cognition, and alternatives 21. Obtain physician order for PT if risk factors associated with mobility are present 22. Obtain physician order for OT as appropriate 23. Utilize diversional activities 24. Educate patient and patient sales support representative how to maintain a safe environment during visitationtimes (notify nurse prior to leaving bedside) 25. Consider appropriateness of medical or non-medical services coordinator 26. Set up voiding schedule as appropriate (every 2 hours) Outcome: Progressing Note: Evaluation of progress towards goal: Bed locked and lowered to lowest setting. Call greco within reach, personal items within reach. Problem: Pain Goal: Patient goal is pain score less than 4, able to rest, and participant in treatment plan as appropriate Description: INTERVENTIONS: 1. Encourage patient or legal sales support representative to report early pain and ask [...] per policy 9. Teach patient or legal sales support representative interventions for comforting Outcome: Progressing Note: [...] at the bedside 7. Instruct patient/ patient sales support representative about use of safety devices 8. Include patient/ patient sales support representative in decisions related to safety Outcome: [...] hygiene technique. 7. Identify and instruct patient/patient sales support representative in use of appropriate isolation precautionsfor identified infection/symptoms. 8. Provide and discuss with patient/patient sales support representative on educational MDRO sheet. 9. Encourage and monitor nutritional status daily and consult vp product management if indicated. 10. Implement neutropenic guidelines as needed. Outcome: Progressing Note: Evaluation of progress towards goal: Patient has no current signs and symptoms of infection; monitoring vitals and labs Problem: Knowledge Deficit Goal: Patient/patient sales support representative demonstrates understanding of disease process, treatment plan,medications, and discharge instructions Description: INTERVENTIONS 1. Complete learning assessment and assess knowledge base 2. Provide teaching at level of understanding 3. Provide teaching via preferred learning method(s) Outcome: Progressing Note: Evaluation of progress towards goal: Patient verbalizes understanding of treatment plan, medications, and discharge plans. [facility]07-13-[facility] Progress note* Discharge Planning Note - Rick Thomas - 12/04/2024 3:50 PM EDT DISCHARGE PLANNING NOTE Dec 07, 2024 10:00 AM (Arrive by 9:45 AM) New Patient with Lindsay Johnson APRN-BEATRIZ [facility] ([place] [address]) [address] [place] [id number] [facility]-13-20[facility] History of Present illness Narrative* Elda Aguirre MD - 12/04/2024 2:49 PM EDT Images from the original note were not included. [facility] Hospitalists Progress Note Subjective SUBJECTIVE [...] vision loss secondary to hyperglycemia Diabetic retinopathy Caee-rb-xzedmlgk diabetic macular edema right eye Seizure-like episode [...] tbd Elda Aguirre MD documented in this encounterLake [facility]07-13-2025 Progress note* Discharge Planning Note - Ezra [...] Provided Yes CarePort List Provided Home Care Insurance Law Specialist met with patient, introduced self, and explained role. Patient educated on safe discharge plan. 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 Discharge plan home with [facility]. PCP: No primary care provider on file. Pharmacy:[facility] PCP and pharmacy confirmed with patient. CN offered to assist with follow up appointment arrangements; patient agreeable, tasked appointment to [facility]. No primary care provider on file. added to Follow Up Providers for Summary of Care communication. Per patient self-report: Drug use: denies Smokinppd ETOH Use: denies Current discharge plan is: Home with daughter support and home care services. [facility]. Tasked [facility] to assist with finding [...] progress towards goal: safe discharge to [facility] with Home Care and daughter, friend support Will continue to follow as plan of care develops. CN discussed benefits and importance of medication compliance and follow ups. Please feel free to reach out for any discharge planning questions. - Ezra Will RN 12/04/24 12:42 PM [facility]07-13-2025 Plan of care note* Plan of Care [...] s/s coverageblood glucose improved but still elevated [facility]07-13-2025 Plan of care note* Plan of Care [...] discharge planning process 5. Communicate referral to newspaper peddler as appropriate 6. Communicate referral to vp product management as appropriate 7. Collaborate with case management/clinical social work aide for discharge needs Outcome: Progressing Note: Evaluation of progress towards goal: [facility]07-12-2025 Progress note* Situational Awareness - Lianne Mccormick MD - 12/03/2024 1:39 PM EDT [facility] Transfer Accept Note I have received a request for transfer of primary service for this patient from the neurology team.Clinical handoff report was given. [facility] will assume care as primary team of this patient starting 12/04/24 at 7:00 am. LIANNE MCCORMICK MD 12/03/2024 [facility]07-12-2025 Consult note* Esvin Ibrahim MD - 12/03/2024 [...] using 2.5% Anibal-Synephrine and 1% Mydriacyl OU [place] sharp margins OU Cup/Disc Ratio 0.3 [...] with additional background diabetic retinopathy and possible ewva-bm-nboecipq diabetic macular edema. The patient's profound visual complaints most likely was secondary to hyperglycemic refractive error. With control of the patient's diabetes vision is suspected to returned to baseline level in 2-4 weeks. The vision has been advised to follow-up with retina specialist Dr. Jonas Casey at [facility] and also to see regular social professionals for refractive care.. Thanks Esvin Ibrahim MD, FACS. ASOCS [id number] Consult note* Esvin Ibrahim MD - 12/03/2024 [...] using 2.5% Anibal-Synephrine and 1% Mydriacyl OU [place] sharp margins OU Cup/Disc Ratio 0.3 [...] with additional background diabetic retinopathy and possible gnua-ua-vrghwvsr diabetic macular edema. The patient's profound visual complaints most likely was secondary to hyperglycemic refractive error. With control of the patient's diabetes vision is suspected to returned to baseline level in 2-4 weeks. The vision has been advised to follow-up with retina specialist Dr. Jonas Casey at [facility] and also to see regular social professionals for refractive care.. Thanks Esvin Ibrahim MD, FACS. * Lianne Mccormick MD - 12/03/2024 8:45 AM EDTAssociated Order(s): IP CONSULT TO INTERNAL MEDICINE Images from the original note were not included. [facility] Hospitalists Consultation 12/03/2024 Patient Name: [...] History: Diagnosis Date Arrhythmia Arthritis Bipolar disorder ([facility]) Bronchitis, chronic ([facility]) Chronic constipation Chronic kidney disease Depression Diabetes mellitus type 2, controlled ([facility]) Meningitis Sudden loss of vision 12/02/2024 Past [...] Intake/Output Summary (Last 24 hours) at 12/03/2024 0967 Last data filed at 12/03/2024 0831 Gross [...] am to 7 pm documented in this encounterLake [facility]07-12-20[facility] Plan of care note * Plan of [...] discharge planning process 5. Communicate referral to newspaper peddler as appropriate 6. Communicate referral to vp product management as appropriate 7. Collaborate with case management/clinical social work aide for discharge needs Note: Evaluation of progress towards goal: pt request to meet clinical social worker ASOCS [id number] Consult note* Lianne Mccormick MD - 12/03/2024 8:45 AM EDTAssociated Order(s): IP CONSULT TO INTERNAL MEDICINE Images from the original note were not included. [facility] Hospitalists Consultation 12/03/2024 Patient Name: Addie [...] History: Diagnosis Date Arrhythmia Arthritis Bipolar disorder ([facility]) Bronchitis, chronic ([facility]) Chronic constipation Chronic kidney disease Depression Diabetes mellitus type 2, controlled ([facility] [facility] Meningitis Sudden loss of vision 12/02/2024 Past [...] Intake/Output Summary (Last 24 hours) at 12/03/2024 0901 Last data filed at 12/03/2024 0831 Gross [...] She is interested in following up with [facility] Endocrinology. If she is able to [...] Available from 7 am to 7 pm ASOCS [id number] History and physical note* Hanna Mari MD - 12/03/2024 12:26 AM EDT Images from the original note were not included. [facility] Neurology General Neurology Primary Admission Note Primary Neurology service: [phone] Chief Complaint: Vision loss History: Addie Jean [...] very hyperglycemic at [facility]. Patient was[facility] for further management. Upon arrival to [facility], patient notes that her vision is [...] History: Diagnosis Date Arrhythmia Arthritis Bipolar disorder ([facility]) Bronchitis, chronic ([facility]) Chronic constipation Chronic kidney disease Depression Diabetes mellitus type 2, controlled ([facility]) Meningitis Family History: No family history on [...] Strain: Low Risk (10/01/2024) Received from [facility] Overall Financial Resource Strain (CARDIA) Difficulty of Paying Living Expenses: Not hard at all Food Insecurity: No Food Insecurity (10/01/2024) Received from [facility] Hunger Vital Sign Within the past 12 months, you worried that your food would run out before you got the money to buymore.: Never true Ran Out of Food in the Last Year: Not on file Transportation Needs: No Transportation Needs (10/01/2024) Received from [facility] Transportation In the past 12 months, has lack of transportation kept you from medical appointments or from getting medications?: No Lack of Transportation (Non-Medical): Not on file Physical Activity: Not on file Stress: Not on file Social Connections: Not on file Interpersonal Safety: Unknown (10/01/2024) Received from [facility] Humiliation, Afraid, Rape, and Kick questionnaire Fear of Current or Ex-Partner: No Emotionally Abused: Not on file Physically Abused: Not on file Sexually Abused: Not on file Housing Instability: Low Risk (10/01/2024) Received from [facility] Housing Stability Vital Sign In the last 12 months, was there a time when you were not able to pay the mortgage or rent on time?: No Number of Times Moved in the Last Year: Not on file At any time in the past 12 months, were you homeless or living in a senior care (including now)?: No Medications: None Allergies: Allergies [...] light touch throughout. Cerebellar: Able to do cfduvm-wh-eumt bilaterally; normal coordination Gait and station: Deferred [...] BMP. Hanna Mari MD PGY3 Neurology [facility] Staffed with: (Dr Vargas) This patient is being followed by the Neurology Resident service. Contact attending directly during these hours: Thursday to 7:30-8:30 A.M. to Thursday 12-1:00 p.m. Primary Neurology service: [phone] Consult neurology service: [phone] Resident Stroke Service: [phone] If the patient belongs to the Stroke [facility] service please contact the Stroke [facility]IDA directly. Cosigned by Vanessa Vargas MD at 12/03/2024 6:02 PM EDT Associated attestation - Vanessa Vargas MD - 12/03/2024 6:02 PM EDT I reviewed the resident's note and discussed the case with the resident. This specific service willnot be billed. Additional findings/notes: case was discussed over the phone [facility] Work Phone: [phone]) 475-187607-12-2025 History and physical note* Hanna Mari MD - 12/03/2024 12:26 AM EDT Images from the original note were not included. [facility] Neurology General Neurology Primary Admission Note Primary Neurology service: [phone] Chief Complaint: Vision loss History: Addie Jean [...] very hyperglycemic at [facility]. Patient wastransferred to [facility] for further management. Upon arrival to [facility], patient notes that her vision is [...] History: Diagnosis Date Arrhythmia Arthritis Bipolar disorder ([facility]) Bronchitis, chronic ([facility]) Chronic constipation Chronic kidney disease Depression Diabetes mellitus type 2, controlled ([facility]) Meningitis Family History: No family history on [...] Strain: Low Risk (10/01/2024) Received from [facility] Overall Financial Resource Strain (CARDIA) Difficulty of Paying Living Expenses: Not hard at all Food Insecurity: No Food Insecurity (10/01/2024) Received from [facility] Hunger Vital Sign Within the past 12 months, you worried that your food would run out before you got the money to buymore.: Never true Ran Out of Food in the Last Year: Not on file Transportation Needs: No Transportation Needs (10/01/2024) Received from [facility] Transportation In the past 12 months, has lack of transportation kept you from medical appointments or from getting medications?: No Lack of Transportation (Non-Medical): Not on file Physical Activity: Not on file Stress: Not on file Social Connections: Not on file Interpersonal Safety: Unknown (10/01/2024) Received from [facility] Humiliation, Afraid, Rape, and Kick questionnaire Fear of Current or Ex-Partner: No Emotionally Abused: Not on file Physically Abused: Not on file Sexually Abused: Not on file Housing Instability: Low Risk (10/01/2024) Received from [facility] Housing Stability Vital Sign In the last 12 months, was there a time when you were not able to pay the mortgage or rent on time?: No Number of Times Moved in the Last Year: Not on file At any time in the past 12 months, were you homeless or living in a senior care (including now)?: No Medications: None Allergies: Allergies [...] light touch throughout. Cerebellar: Able to do sloncc-vt-lduc bilaterally; normal coordination Gait and station: Deferred [...] BMP. Hanna Mari MD PGY3 Neurology [facility] Staffed with: (Dr Vargas) This patient is being followed by the Neurology Resident service. Contact attending directly during these hours: Thursday to 7:30-8:30 A.M. to Thursday 12-1:00 p.m. Primary Neurology service: [phone] Consult neurology service: [phone] Resident Stroke Service: [phone] If the patient belongs to the Stroke [...] discussed over the phone [facility] Telephone encounter Note* Telephone Encounter - Olivia Almonte - 11/21/2024 1:45 PM EDT Shon 10/24/24 [id number] Miscellaneous Notes* Telephone Encounter - Olivia Almonte - 11/21/2024 1:45 PM EDT Shon 10/24/24 documented in this [id number] History of Present illness Narrative* Jessica Romeo PA-C - 11/04/2024 9:00 AM EDT Opened for pre-charting. Patient not seen today, no show. [facility] Telephone encounter Note* Telephone Encounter - Moo Louise RN - 10/11/2024 3:49 PM EDT Pt informed of rx sent. Pharmacy updated to verify new rx and verbalized understanding. Will fill for pt today. [id number] Miscellaneous Notes* Telephone Encounter - Moo Louise [...] a prior auth for [place] is where [place] now. pt will call back with information of faclity. * Telephone Encounter - Olivia Almonte - 10/06/2024 4:05 PM EDT Shon 09/23/24 documented in this [id number] Telephone encounter Note* Telephone Encounter - Moo Louise RN - 10/10/2024 4:39 PM EDT Patient was given 14 day supply on 09/23/24 pending UDS results (in media, consistent) so she would have been due to fill on 10/07/24. This RX is written to be filled on 10/23/24, ALSO - it is also only written for 14 day supply. Pleasecorrect and resend. [id number] Telephone encounter Note* Telephone Encounter - Olivia Almonte - 10/06/2024 4:09 PM EDT Pt is asking for a prior auth for water therapy in [place]. This is where pt lives now. pt will call back with information of faclity. [id number] Telephone encounter Note* Telephone Encounter - Olivia Almonte - 10/06/2024 4:05 PM EDT Shon 09/23/24 [id number] NoteSW notified that patient is ready for discharge. Dtr cannot transport her home. Pt called [employer] transportation line and speaker call made to schedule transport home. Address corrected in [facility] system to [facility]. Updates sent to [facility] providers to seek out accepting provider with new home address. Awaiting accepting provider. SW added information to AVS that we will call patient once we receive responses from [facility]. 5pm. Patient missed [employer]BER. She tried to reach out to insurance again but placed on hold. bread supervisor agreed to call [employer] for patient to get her home. 10/06/24 SW has not rec'd any accepting [facility] out of 22 referrals. SW attempted to call patient -VM was full unable to leave a message. SW attempted to call dtr-no answer. No home health has been located for this patient.[facility]05-14-2025 NotePhysical Therapy Physical Therapy Treatment Patient Name: Addie Jean Baptiste : 1975 Today's Date: 10/05/2024 Patient Active Problem List Diagnosis NSTEMI (non-ST elevated myocardial infarction) ([facility]) Type 2 diabetes mellitus with circulatory disorder, [...] to enter home. Pt becomes frustrated with show card writer's questions re: PLOF, home safety, assistance [...] to 1: [employer] (more content not included)...[facility] 10-05-2024 Note Attestation signed by Leonardo [...] : Addie Jean Baptiste; 49 y.o. Location: [facility]/5160-01 Attending: Maye Ortiz DO Admit Date: 10/01/2024 [...] edema, morbid obesity who was taken to [facility] ED as she was noted to [...] were noted to be elevated 180-->166 pg/mL. [facility] Cardiology was consulted from [facility] and she is transferred here for [...] Meds: aspirin, 81 m (more content not included)...[facility]05-14-2025 NoteHospital Medicine Discharge Summary Final Discharge Diagnosis: NSTEMI (non-ST elevated myocardial infarction) ([facility]) due to demand ischemia Type 2 diabetes mellitus with circulatory disorder, with long-term current use of insulin (CMS/HCC) Sick sinus syndrome (CMS/HCC) Acute renal failure with acute tubular necrosis superimposed on stage 3a chronic kidney disease ([facility]) Seizure ([facility]CC) Bipolar 1 disorder ([facility]) Acquired hypothyroidism Class 3 severe obesity due to excess calories with serious comorbidity and body mass index (BMI) of 50.0 to 59.9 in adult Plantar ulcer of left foot, limited to breakdown of skin ([facility]) Hypocalcemia Admission Diagnosis: NSTEMI (non-ST elevated myocardial infarction) ([facility]) [I21.4] Hospital course: Addie Jean Baptiste is [...] edema, morbid obesity who was taken to [facility] ED as she was noted to [...] 180-->166 pg/mL. NSTEMI (non-ST elevated myocardial infarction) ([facility]) - cards consulted - likely demand ischemia [...] disorder, with long-term current use of insulin ([facility]) - HgbA1C 10.7 - in insulin pump at home - may resume medications at discharge Sick sinus syndrome ([facility]) - s/p pacemaker - interrogation ordered- did review interrogation report with cardiology. Report is stable. No issues seen on report Acute renal failure with acute tubular necrosis superimposed on stage 3a chronic kidney disease ([facility]) -Cr improved today to 1.26 - renal US negative - neph consulted during the stay. Patient did improve. Recommend to follow up outpatient Seizure ([facility]) - neuro consulted at admission - Continue LEV 1g BID at least until outpt neuro follow up - Patient will need referral to [facility] neurology (for epileptologist) at discharge. - Neuro will sign off. Bipolar 1 disorder ([facility]) - continue celexa 40mg daily - continue [...] left foot, limited to breakdown of skin ([facility]) - vascular surgery consulted No plans for debridement at this time. No antibiotics necessary. Upon inspection today this is not ulcer but rather a dry callus, no open tissue present. Recommend to keep callus clean and dry and follow up outpatient follow up with her real estate director for routine callus paring. No need for paring this admission. [employer]ter (more content not included)...[facility] 10-04-2024 NoteSW requested with new consult today for [facility]. Patient has hx of a provider that served [employer] that drove the [employer] . She said it was [employer] something . Referral made to [facility]. Patient states she doesn't have current [...] look for donated walker for discharge if available.[facility]05-13-2025 NoteOccupational Therapy Occupational Therapy Evaluation Patient Name: Addie Jean Baptiste : 1975 Today's Date: 10/04/2024 Start Time: 1345 Stop Time: 1413 Time Calculation (min): 28 min OT Evaluation Time Entry OT Evaluation (Moderate) Time Entry: 28 General Subjective: Patient stated she was recently evicted from her home in [place]. Patient is now living with her sister in [place]. Patient agreed to get up to the [...] List Diagnosis NSTEMI (non-ST elevated myocardial infarction) (CMS/[facility]) Type 2 diabetes mellitus with circulatory disorder, with long-term current use of insulin ([facility] Sick sinus syndrome ([facility]) Acute renal failure with acute tubular necrosis superimposed on stage 3a chronic kidney disease ([facility] Seizure ([facility]) Bipolar 1 disorder ([facility]) Acquired hypothyroidism Class 3 severe obesity due to excess calories with serious comorbidity and body mass index (BMI) of 50.0 to 59.9 in adult Plantar ulcer of left foot, limited to breakdown of skin ([facility]) Hypocalcemia Past Medical History: Diagnosis Date Anxiety Bipolar 1 disorder ([facility]) Cardiac arrest ([facility]) 2019 Chronic back pain Chronic kidney disease Coronary artery disease Depression Diabetes mellitus ([facility]) Hypertension Insomnia Pacemaker Schizoaffective disorder ([facility]) Seizures ([facility]) Stroke ([facility] Past Surgical History: Procedure Laterality Date CARDIAC [...] Level of Function Prior Function Level of [place]: Independent with ADLs and functional transfers, Needs [...] shower but patient perfo (more content not included)...[facility] 10-04-2024 NotePhysical Therapy Physical Therapy Evaluation [...] Pt is 49 y.o female presenting to [facility] ED following tonic-clonic seizure and episodes [...] List Diagnosis NSTEMI (non-ST elevated myocardial infarction) ([facility]) Type 2 diabetes mellitus with circulatory disorder, with long-term current use of insulin ([facility] Sick sinus syndrome ([facility]) Acute renal failure with acute tubular necrosis superimposed on stage 3a chronic kidney disease ([facility] Seizure ([facility]) Bipolar 1 disorder ([facility]) Acquired hypothyroidism Class 3 severe obesity due to excess calories with serious comorbidity and body mass index (BMI) of 50.0 to 59.9 in adult Plantar ulcer of left foot, limited to breakdown of skin ([facility]) Hypocalcemia Past Medical History: Diagnosis Date Anxiety Bipolar 1 disorder ([facility]) Cardiac arrest ([facility]) 2019 Chronic back pain Chronic kidney disease Coronary artery disease Depression Diabetes mellitus ([facility]) Hypertension Insomnia Pacemaker Schizoaffective disorder ([facility] Seizures ([facility]) Stroke ([facility]) Past Surgical History: Procedure Laterality Date CARDIAC [...] House Lives With: Family (Daughter, son, and [id number]) Home Living Comments: Pt states she was living with her son and DIL in [place] however the landlord kicked them out within the past week so they moved to [place] into her daughter's Home Layout: Two level, [...] Level of Function Prior Function Level of [place]: Independent with ADLs and functional transfers, Needs [...] Rest Breaks: 2 Act (more content not included)...[facility]05-13-2025 Note- s/p pacemaker - interrogation ordered- asked RN to call [facility] 10-04-2024 Note- HgbA1C 10.7 - in insulin pump at home - Glu 96-211 - currently lantus 12 units bid - currently ISSUnSelect Medical Specialty [facility]05-13-2025 Note- continue celexa 40mg daily - continue pamelor 25mg nightly - continue seroquel 400mg nightlyUnSelect Medical [facility]05-13-2025 Note- encourage weight loss - may benefit from a GLP-1 inhibitor, defer to PCPMer[facility]05-13-2025 Note- cards consulted - likely demand ischemia in setting of acute kidney injury, and seizure episode and elevated lactate. [employer] device interrogation No current indication for heparin as her troponin is trending downward and patient is asymptomatic and having epistaxis. Aspirin 81 mg daily and Toprol 50 mg. Further recommendations to follow depending on echocardiogram results.[facility]05-13-2025 Note- neuro consulted at admission - Continue LEV 1g BID at least until outpt neuro follow up - Patient will need referral to [facility] neurology (for epileptologist) at discharge. - Recommend PT/OT. - Neuro will sign off.[facility]05-13-2025 Note- last TSH 3.71 - cont levothyroxine 75mcg dailyUnSelect Medical [facility]05-13-2025 Note- vascular surgery consulted No plans for debridement at this time. No antibiotics necessary. Upon inspection today this is not ulcer but rather a dry callus, no open tissue present. Recommend to keep callus clean and dry and follow up outpatient follow up with her real estate director for routine callus paring. No need for [...] follow up with our service at this timeUnSelect Medical [facility]05-13-2025 Note-Cr improved today to 1.75 - renal US negative - neph consultedUnSelect Medical [facility]05-13-2025 Note- Ca 8.2 today - daily CBC Consult PT/OT/DEPARTMENT STORE SALESPERSON Will DC foleyMercy Health [facility]ard [facility]05-13-2025 NoteHospital Medicine Daily Progress Note - 10/04/2024 12:12 PM; Room: [address] [place] [address] Admission: 10/01/2024 9:19 AM; Length of stay: 3 days THE HOSPITALIST TEAM PREFERS TO USE [employer] CHAT FOR NON-URGENT COMMUNICATION 7AM-7PM. IF I DO NOT RESPOND WITHIN 20 MINUTES OR URGENT MATTERS, PLEASE CALL THROUGH THE REVERSER. FROM 7PM-7AM, PLEASE PAGE [phone](COVR). Code Status: Full Code Barriers to Discharge: [...] edema, morbid obesity who was taken to [facility] ED as she was noted to [...] & Plan NSTEMI (non-ST elevated myocardial infarction) ([facility]) - cards consulted - likely demand ischemia [...] disorder, with long-term current use of insulin ([facility]) - HgbA1C 10.7 - in insulin pump at home - Glu 96-211 - currently lantus 12 units bid - currently ISS Sick sinus syndrome ([facility]) - s/p pacemaker - interrogation ordered- asked RN to call rep Acute renal failure with acute tubular necrosis superimposed on stage 3a chronic kidney disease ([facility]) -Cr improved today to 1.75 - renal US negative - neph consulted Seizure ([facility]) - neuro consulted at admission - Continue LEV 1g BID at least until outpt neuro follow up - Patient will need referral to [facility] neurology (for epileptologist) at discharge. - Recommend PT/OT. - Neuro will sign off. Bipolar 1 disorder ([facility]) - continue celexa 40mg daily - continue [...] left foot, limited to breakdown of skin ([facility]) - vascular surgery consulted No plans for debridement at (more content not included)...[facility]05-12-2025 NoteCa 6.6 - albumin 2.5, corrected calcium 7.4 - will give one gram of calciumUnSelect Medical [facility]05-12-2025 Note-Cr improved today to 1.89 - renal US negative - neph consultedUnSelect Medical [facility]ty [facility]05-12-2025 Note- vascular surgery consulted No plans for debridement at this time. No antibiotics necessary. Upon inspection today this is not ulcer but rather a dry callus, no open tissue present. Recommend to keep callus clean and dry and follow up outpatient follow up with her real estate director for routine callus paring. No need for [...] follow up with our service at this timeMercy Health [facility]05-12-2025 Note Attestation with edits by Leonardo [...] edema, morbid obesity who was taken to [facility] ED as she was noted to [...] were noted to be elevated 180-->166 pg/mL. [facility] Cardiology was consulted from [place] ED and she is transferred here for [...] leg: No edema. N (more content not included)...[facility]05-12-2025 Note- neuro consulted at admission - Continue LEV 1g BID at least until outpt neuro follow up - Patient will need referral to [facility] neurology (for epileptologist) at discharge. - Recommend PT/OT. - Neuro will sign off.[facility]05-12-2025 Note- last TSH 3.71 - cont levothyroxine 75mcg dailyUnSelect [facility]05-12-[facility] Note- encourage weight loss - may benefit from a GLP-1 inhibitor, defer to PCPUn[facility]05-12-2025 Note- continue celexa 40mg daily - continue pamelor 25mg nightly - continue seroquel 400mg nightlyUnSelect [facility]05-12-2025 Note- HgbA1C 10.7 - in insulin pump at home - Glu 115-413 - currently lantus 12 units bid - currently ISS - will discuss insulin dosing with pharmacy todayUn[facility]05-12-2025 Note- s/p pacemaker - interrogation orderedUnSelect [facility]05-12-2025 Note- cards consulted - likely demand ischemia in setting of acute kidney injury, and seizure episode and elevated lactate. [employer] device interrogation No current indication for heparin as her troponin is trending downward and patient is asymptomatic and having epistaxis. Aspirin 81 mg daily and Toprol 50 mg. Further recommendations to follow depending on echocardiogram results. Cardiology team will continue to followUnSelect [facility] 10-03-2024 NoteHospital Medicine Daily Progress Note - 10/03/2024 10:32 AM; Room: [address] [place] [address] Admission: 10/01/2024 9:19 AM; Length of stay: 2 days THE HOSPITALIST TEAM PREFERS TO USE [employer] CHAT FOR NON-URGENT COMMUNICATION 7AM-7PM. IF I DO NOT RESPOND WITHIN 20 MINUTES OR URGENT MATTERS, PLEASE CALL THROUGH THE REVERSER. FROM 7PM-7AM, PLEASE PAGE [phone](COVR). Code Status: Full Code Barriers to Discharge: [...] edema, morbid obesity who was taken to [facility] ED as she was noted to [...] & Plan NSTEMI (non-ST elevated myocardial infarction) ([facility]) - cards consulted - likely demand ischemia [...] disorder, with long-term current use of insulin ([facility]) - HgbA1C 10.7 - in insulin pump at home - Glu 115-413 - currently lantus 12 units bid - currently ISS - will discuss insulin dosing with pharmacy today Sick sinus syndrome ([facility]) - s/p pacemaker - interrogation ordered Acute renal failure with acute tubular necrosis superimposed on stage 3a chronic kidney disease ([facility]) -Cr improved today to 1.89 - renal US negative - neph consulted Seizure ([facility]) - neuro consulted at admission - Continue LEV 1g BID at least until outpt neuro follow up - Patient will need referral to [facility] neurology (for epileptologist) at discharge. - Recommend PT/OT. - Neuro will sign off. Bipolar 1 disorder ([facility]) - continue celexa 40mg daily - continue [...] left foot, limited to breakdown of skin ([facility]) - vascular surgery consulted No plans for debridement at this time. No antibiotics necessary. Upon inspection razia (more content not included)...[facility]05-12-2025 Note Attestation signed by Kelley Liang RD at 10/03/2024 2:16 PM I attest that I was present for nutrition assessment and agree with video editing intern's nutrition interventions and goals for pt. Adult Nutrition Assessment: Name: Addie Jean Baptiste Date: 1975 Date of Visit: 10/03/24 Admission Dx: NSTEMI (non-ST elevated myocardial infarction) ([facility]) [I21.4] Reason for assessment: high risk (L DFU) Information obtained from: patient, medical record, and nursing Past Medical History: Diagnosis Date Anxiety Bipolar 1 disorder ([facility]) Cardiac arrest ([facility]) 2019 Chronic back pain Chronic kidney disease Coronary artery disease Depression Diabetes mellitus ([facility]) Hypertension Insomnia Pacemaker Schizoaffective disorder ([facility]) Seizures ([facility]) Stroke ([facility]) Current Medications: aspirin, 81 mg, oral, Daily [...] ate all of her breakfast this morning (uzbek muffin, wick, juice/coffee). Pt states she has had diabetes (more content not included)...[facility]05-12-2025 Note [facility] Vascular Surgery DAILY PROGRESS NOTE Subjective [...] Agent, Strain, 3D, Bubble Study [facility] Heart Station [address] [place] [address] [phone] (fax) Echocardiogram-[facility] Name: ADDIE ORGAN Study Date: 10/01/2024 03:03 PM B/P: 127 mmHg/111 mmHg HR: Date of : 1975 Location: [facility] Height: 62 in. Age: 49 year(s) [...] 12 mmHg TR V (more content not included)...[facility]05-11-2025 Note- last TSH 3.71 - cont levothyroxine 75mcg dailyUnSelect [facility]05-11-2025 Note- encourage weight loss - may benefit from a GLP-1 inhibitor, defer to PCPUn[facility]05-11-2025 Note- Cr 3.0 today - neph consultedUn[facility]05-11-2025 Note- HgbA1C 10.7 - in insulin pump at home - Glu 134-249 - currently lantus 12 units bid - currently ISSUnSelect [facility]05-11-2025 Note- cards consulted - likely demand ischemia [...] echocardiogram results. Cardiology team will continue to followUnSelect [facility] 10-02-2024 Note- s/p pacemaker - interrogation orderedUn[facility]05-11-2025 Note- continue celexa 40mg daily - continue pamelor 25mg nightly - continue seroquel 400mg nightlyUnSelect [facility]05-11-2025 Note- vascular surgery consulted No plans for debridement at this time No antibiotics necessary Wash wound daily with soap and water, keep dry Will obtain arterial studies to evaluate for peripheral vascular disease [facility]05-11-2025 Note- neuro consulted at admission - Continue LEV 1g BID at least until outpt neuro follow up - Patient will need referral to [facility] neurology (for epileptologist) at discharge. - Recommend PT/OT. - Neuro will sign off.[facility]05-11-2025 NoteHospital Medicine Daily Progress Note - 10/02/2024 10:59 AM; Room: [facility]/[address] [place] [address] Admission: 10/01/2024 9:19 AM; Length of stay: 1 days THE HOSPITALIST TEAM PREFERS TO USE [employer] CHAT FOR NON-URGENT COMMUNICATION 7AM-7PM. IF I DO NOT RESPOND WITHIN 20 MINUTES OR URGENT MATTERS, PLEASE CALL THROUGH THE REVERSER. FROM 7PM-7AM, PLEASE PAGE [phone](COVR). Code Status: Full Code Barriers to Discharge: [...] edema, morbid obesity who was taken to [facility] ED as she was noted to [...] & Plan NSTEMI (non-ST elevated myocardial infarction) ([facility]) - cards consulted - likely demand ischemia [...] disorder, with long-term current use of insulin ([facility]) - HgbA1C 10.7 - in insulin pump at home - Glu 134-249 - currently lantus 12 units bid - currently ISS Sick sinus syndrome ([facility]) - s/p pacemaker - interrogation ordered Acute renal failure with acute tubular necrosis superimposed on stage 3a chronic kidney disease ([facility]) - Cr 3.0 today - neph consulted Seizure ([facility]) - neuro consulted at admission - Continue LEV 1g BID at least until outpt neuro follow up - Patient will need referral to [facility] neurology (for epileptologist) at discharge. - Recommend PT/OT. - Neuro will sign off. Bipolar 1 disorder ([facility]) - continue celexa 40mg daily - continue [...] arterial studies to evalua (more content not included)...[facility]05-11-2025 Note Attestation with edits by Juan C Crabtree MD at 10/02/2024 4:35 PM I personally saw and examined the patient on the same date of service as resident/fellow Dr Ho. I discussed the findings and therapeutic plan with the resident/fellow Dr Ho. I agree with the documentation, except for any edits/updates below. Teaching Physician's Revisions: None Juan C Crabtree MD, [facility] Cardiology Progress Note Subjective Subjective: Patient was [...] 10 mL, 10 mL, intravenous, q8h PRN, Mailka Cantu MD tiZANidine (Zanaflex) tablet 4 mg, [...] in acute distress. Appearanc (more content not included)...[facility] 10-01-2024 [facility]Un[facility] General Neurology Consultation Initial [...] were noted to be elevated 180-->166 pg/mL. [facility] Cardiology was consulted from [facility] and she is transferred here for further management. A summary from her [facility] neurologist on 08/2023 noted: 2008 - [...] History: Diagnosis Date Anxiety Bipolar 1 disorder ([facility]) Cardiac arrest ([facility]) 2019 Chronic back pain Chronic kidney disease Coronary artery disease Depression Diabetes mellitus ([facility]) Hypertension Insomnia Pacemaker Schizoaffective disorder ([facility] Seizures ([facility]) Stroke ([facility]) PAST SURGICAL HISTORY: Past Surgical History: Procedure [...] Other and Rash O (more content not included)...[facility]05-10-2025 NoteHospital Medicine History and Physical 10/01/2024 9:31 AM THE HOSPITALIST TEAM PREFERS TO USE [employer] FOR NON-URGENT COMMUNICATION 7AM-7PM. IF I DO NOT RESPOND WITHIN 20 MINUTES OR URGENT MATTERS, PLEASE CALL THROUGH THE REVERSER. FROM 7PM-7AM, PLEASE PAGE [phone](COVR). Chief Complaint Intermittent anginal episodes, elevated troponin [...] edema, morbid obesity who was taken to [facility] ED as she was noted to [...] were noted to be elevated 180-->166 pg/mL. [facility] Cardiology was consulted from [facility] and she is transferred here for [...] sinus problems, no radha (more content not included)...[facility]05-08-2025 History of Present illness Narrative* Jay Peralta MA - 09/29/2024 1:43 PM EDT Faxed rx e-stim 09/28/24 documented in this [id number] Noteerror AUTHENTICATED BY JIM VELEZ ON 09/27/2024 21:37:15[facility]05-05-2025 NoteErroneous encounter, patient not seen for office visit on this date. See documentation regarding seizure episodes in office lobby and transportation to ED. AUTHENTICATED BY STEPHANY PELAYO ON 09/26/2024 08:41:02[facility]05-02-2025 Instructions* Patient Instructions* Jim Velez DO - [...] completed Reorder TENS unit documented in this [id number] History of Present illness Narrative* Felix Olivae - 09/23/2024 10:55 AM EDT General Pain Index Questionnaire- [facility] Date: 09/23/24 Patient Name: ___Anastasiay [...] Velez DO - 09/23/2024 10:50 AM EDT [facility] Interventional Pain Management Office [...] referral, TENS unit, and follow-up with new real estate director. -Addie has scheduled an appointment with a new real estate director, Dr. Sun, on the , as she [...] Pacemaker Schizoaffective disorder (HCC) Seizures (HCC) Stroke ([facility]) Past Surgical History Past Surgical History: Procedure Laterality Date CHOLECYSTECTOMY FOOT SURGERY HYSTERECTOMY ORTHOPEDIC SURGERY left foot surgery PACEMAKER INSERTION CT AMPUTATION TOE METATARSOPHALANGEAL JOINT Left 04/01/2024 Procedure: AMPUTATION LEFT HALLUX; Surgeon: Shameka Castillo DPM; Location: [facility]; Service: Podiatry Social History Social [...] total) by mouth daily . Dexcom G6 Filler Mixer Misc Use as directed for continuous glucose [...] by mouth daily . miscellaneous medical supply [facility] 1 each by Miscellaneous route daily . [...] OPIOIDS Jim Velez DO Interventional Pain Management [facility] documented in this [id number] NoteOhioHealth Mansfield Hospital [facility] Interventional Pain Management Office [...] referral, TENS unit, and follow-up with new real estate director. -Addie has scheduled an appointment with a new real estate director, Dr. Sun, on the , as she [...] History: Diagnosis Date Anx (more content not included)...[facility] Tewdgjtnbx60-03-2020 NoteCathy Organ is a 49-year-old female patient of Stephany Pelayo PA-C who is presenting for follow-up visit. She does present in a wheelchair. I was walking a patient of mine out to the [employer] when her mail handler flagged me down saying that she was losing consciousness in the lobby. When I approached patient she had her eyes open but was unresponsive. At that time I did call for assistance. Within about a minute patient did start talking to me and said that she has not been feeling good and has been dizzy and shaking. The mail handler with her said that he is not seeing her unresponsive like she was until just now. Staff members were able to start taking blood pressure at 2:18 PM with blood pressure at 139/85, heart rate 89 and oxygen was reading approximately 76% but patient has dark nail swedish on. EMS was initiated at this time. [...] when EMS arrived. Patient was transferred to [facility] and taken to ED. During each [...] over. AUTHENTICATED BY KARON BEARD, ON 09/22/2024 16:04:57[facility] [id number] History of Present illness Narrative* Karon Beard PA-C - 09/22/2024 3:55 PM EDT Addie Jean Baptiste is a 49-year-old female patient of Stephany Pelayo PA-C who is presenting for follow-up visit. She does present in a wheelchair. I was walking a patient of mine out to the lobby when her mail handler flagged me down saying that she was losing consciousness in the lobby. When I approached patient she had her eyes open but was unresponsive. At that time I did call for assistance. Within about a minute patient did start talking to me and said that she has not been feeling good and has beendizzy and shaking. The mail handler with her said that he is not [...] when EMS arrived. [facility]. During each episode, patient's [...] until EMS took over. documented in this [id number] Telephone encounter Note* Telephone Encounter - Moo Louise RN - 09/22/2024 3:29 PM EDT Pt had appt today but was sent to ED by pcp due to seizure in her office. She is out of Percocet. She didn't call for refill due to appt today. Appt rescheduled for tomorrow morning. [id number] Miscellaneous Notes* Telephone Encounter - Moo Louise RN - 09/22/2024 3:29 PM EDT Pt had appt today but was sent to ED by pcp due to seizure in her office. She is out of Percocet. She didn't call for refill due to appt today. Appt rescheduled for tomorrow morning. documented in this [id number] History of Present illness Narrative* Ladan Oliva - 08/24/2024 9:12 AM EDT Called pt to reschedule frida , unable to lvm documented in this [id number] History of Present illness Narrative* Rafaela Castillo MA - 08/04/2024 10:18 AM EDT Pulse ox order faxed to [employer]. documented in this [id number] Instructions* Patient Instructions* Rafaela Castillo MA - 08/02/2024 3:12 PM EDT Call Neurology for your refills at [phone] Call [facility] to check on referrals at [phone] documented in this [id number] [facility]ICIANS [facility] INTERNAL MEDICINE [address] [place] [address]. [place] [address] Subjective Patient ID: Addie Jean Baptiste is [...] She has been receiving telehealth consultations from [facility], which she reports as beneficial. [...] scan, and is interested in seeing a product test specialist. She reports difficulty in ambulating due to foot pain, which is exacerbated by the formation of new blisters with each attempt to walk. She has an upcoming appointment with her real estate director on 08/12/2024 for multiple diabetic foot wounds and likely planning for surgery. She has not been performing any wound care at home. She reports the presence of blisters under both breasts, which are non-pruritic but cause a burning sensation. She is concerned about the potential development of ulcers.She has been using a wheelchair for mobility and continues to see a panel edge painter. She has an upcoming appointment with an special delivery carrier at [facility]. Not routinely checking BG. She [...] Pacemaker Schizoaffective disorder (HCC) Seizures (HCC) Stroke ([facility]) Past Surgical History: Procedure Laterality Date CHOLECYSTECTOMY FOOT SURGERY HYSTERECTOMY ORTHOPEDIC SURGERY left foot surgery PACEMAKER INSERTION CT AMPUTATION TOE METATARSOPHALANGEAL JOINT Left 04/01/2024 Procedure: AMPUTATION LEFT HALLUX; Surgeon: Shameka Castillo DPM; Location: [facility]; Service: Podiatry Family History Problem [...] (two) times a day . Dexcom G6 Filler Mixer Misc Use as directed for continuous glucose [...] as directed . ame (more content not included)...[facility]03-11-2025 History of Present illness Narrative* Stephany Pelayo PA-C - 08/02/2024 2:09 PM EDT [facility] INTERNAL [facility]IC[facility] [place] [address] Subjective Patient ID: Addie Jean Baptiste is [...] She has been receiving telehealth consultations from [facility], which she reports as beneficial. [...] scan, and is interested in seeing a product test specialist. She reports difficulty in ambulating due to foot pain, which is exacerbated by the formation of newblisters with each attempt to walk. She has an upcoming appointment with her real estate director on 08/12/2024 for multiple diabetic foot wounds and likely planning for surgery. She has not been performing any wound care at home. She reports the presence of blisters under both breasts, which are non-pruritic but cause a burning sensation. She is concerned about the potential development of ulcers.She has been using a wheelchair for mobility and continues to see a panel edge painter. She has an upcoming appointment with an special delivery carrier at [facility]. Not routinely checking BG. She [...] ORTHOPEDIC SURGERY left foot surgery PACEMAKER INSERTION CT AMPUTATION TOE METATARSOPHALANGEAL JOINT Left 04/01/2024 Procedure: AMPUTATION LEFT HALLUX; Surgeon: Shameka Castillo DPM; Location: [facility]; Service: Podiatry Family History Problem [...] (two) times a day . Dexcom G6 Filler Mixer Misc Use as directed for continuous glucose [...] Continue current medications as prescribed. Discharged from [facility] due to no-shows. 2. Chronic Pain [...] mg daily, Toprol-XL 50 mg once daily, [id number] mg daily. 8. Headaches Has been referred [...] supposed to be establishing with an external wind turbine mechanic for evaluation. 18. Candidiasis Continue nystatin powder PRN 19. Insomnia Continue trazodone 100mg qhs PRN 20. B12 Deficiency Continue supplementation. 21. Vitamin D Deficiency Continue supplementation. 22. Health Maintenance. A mammogram will be ordered. Blood work will be ordered to monitor her overall health, including A1c levels. Diagnoses and all orders for this visit: Bipolar 1 disorder ([facility]) - citalopram (CELEXA) 40 MG tablet; Take 1 (one) tablet (40 mg total) by mouth daily . Chronic pain of both knees - Ambulatory Ref to [facility] (PT/OT/ST); Future Degeneration of intervertebral disc of lumbar region with discogenic back pain - Ambulatory referral to Spine Surgery; Future Chronic pain syndrome Diabetic ulcer of left great toe ([facility]) Type 2 diabetes mellitus with diabetic polyneuropathy, with long-term current use of insulin ([facility]) - Hemoglobin A1c; Future - Hemoglobin [...] Chronic obstructive pulmonary disease, unspecified COPD type ([facility]) - albuterol (PROVENTIL) 2.5 mg /3 [...] 12/02/2024). Stephany Pelayo PA-C documented in this [id number] History of Present illness Narrative* Rafaela Castillo MA - 07/21/2024 5:05 PM EST Shower chair order, ins card and OV note faxed to [employer]. documented in this [id number] [facility]ICIANS [facility] INTERNAL MEDICINE [facility] [place] [address] Subjective Patient ID: Addie Jean Baptiste is [...] her foot next week with podiatry in [place] for diabetic foot ulcer. She has been [...] She has requested referrals to a neurologist, oscillograph technician, and special delivery carrier at [facility]. She has a history of [...] ORTHOPEDIC SURGERY left foot surgery PACEMAKER INSERTION CT AMPUTATION TOE METATARSOPHALANGEAL JOINT Left 04/01/2024 Procedure: AMPUTATION LEFT HALLUX; Surgeon: Shameka Castillo DPM; Location: [facility]; Service: Podiatry Family History Problem [...] (two) times a day . Dexcom G6 Filler Mixer Misc Use as directed for continuous glucose [...] mg total) by mouth (more content not included)...[facility] [id number] History of Present illness Narrative* Stephany Pelayo PA-C - 07/15/2024 11:13 AM EST [facility] INTERNAL MEDICINE [address] [place] [address]. [place] [address] Subjective Patient ID: Addie Jean Baptiste is [...] her foot next week with podiatry in [place] for diabetic foot ulcer. She has been [...] She has requested referrals to a neurologist, oscillograph technician, and special delivery carrier at [facility]. She has a history of [...] ORTHOPEDIC SURGERY left foot surgery PACEMAKER INSERTION CT AMPUTATION TOE METATARSOPHALANGEAL JOINT Left 04/01/2024 Procedure: AMPUTATION LEFT HALLUX; Surgeon: Shameka Castillo DPM; Location: [facility]; Service: Podiatry Family History Problem [...] (two) times a day . Dexcom G6 Filler Mixer Misc Use as directed for continuous glucose [...] 60 tablet 2 naloxone (NARCAN) 4 mg/actuation [place] Administer 1 spray into one nostril for [...] improve. Stephany Pelayo PA-C documented in this [id number] Telephone encounter Note* Telephone Encounter - Mihai Elizalde CNP - 07/14/2024 12:03 PM EST Percocet can remain at BID dosing for now. She can discuss this with Dr Velez in July [id number] Miscellaneous Notes* Telephone Encounter - Mihai Elizalde [...] normally. Noted slightly slurred speech. Encounter in [facility] dated today with PCP addressing seizure. * Telephone Encounter - Moo Louise RN - 07/13/2024 11:02 AM EST Pt called to check on rx request. She states that her real estate director was supposed to call our office torequest [...] year. She verbalized understanding. documented in this [id number] Telephone encounter Note* Telephone Encounter - Moo [...] normally. Noted slightly slurred speech. Encounter in [facility] dated today with PCP addressing seizure. [id number] Telephone encounter Note* Telephone Encounter - Moo Louise RN - 07/13/2024 11:02 AM EST Pt called to check on rx request. She states that her real estate director was supposed to call our office torequest [...] than a year. She verbalized understanding. [id number] History of Present illness Narrative* Soto Box [...] Past Medical History: Diagnosis Date Diabetes mellitus ([facility]) Hypertension ([facility]) Medications: Current Outpatient Medications: amoxicillin-clavulanate (Augmentin) 875-125 [...] , Rfl: ergocalciferol (Vitamin D2) 1.25 MG (75525 UT) capsule, Take 1 capsule by mouth [...] Resource Strain: Medium Risk (01/13/2024) Received from [facility] Overall Financial Resource Strain (CARDIA) Difficulty of Paying Living Expenses: Somewhat hard Food Insecurity: No Food Insecurity (04/27/2024) Received from [facility] Hunger Vital Sign Worried About Running Out of Food in the Last Year: Never true Ran Out of Food in the Last Year: Never true Transportation Needs: No Transportation Needs (04/27/2024) Received from [facility] PRAPARE - Transportation Lack of Transportation (Medical): No Lack of Transportation (Non-Medical): No Physical Activity: Not on file Stress: Not on file Social Connections: Not on file Intimate Partner Violence: Not At Risk (04/27/2024) Received from [facility] Humiliation, Afraid, Rape, and Kick questionnaire Fear of Current or Ex-Partner: No Emotionally Abused: No Physically Abused: No Sexually Abused: No Housing Stability: Low Risk (04/27/2024) Received from [facility] Housing Stability Vital Sign Unable to [...] noted mild venous stasis disease noted Neuro: [place]-Oniel 5.07 monofilament absent Vibratory sensation diminished Musculoskeletal: Muscle strength +5/5 all intrinsic and extrinsic muscles tested ASSESSMENT 1. Type II diabetes mellitus with neurological manifestations ([facility]) 2. Chronic foot ulcer with fat layer exposed, left ([facility]) 3. Cellulitis of left foot PLAN Patient [...] which she currently has follow up with [facility] Thursday for the procedure. LUPE Capellan documented in this encounterCenterPointe [id number] History of Present illness Narrative* Rafaela Castillo MA - 06/07/2024 11:32 AM EST Confirmation received. Pending scanning. * Rafaela Castillo MA - 06/06/2024 1:35 PM EST Received fax from [employer] for incontinence supplies. Forms completed, signed and faxed. Waiting for confirmation. documented in this [id number] History of Present illness Narrative* Karon Meng LPN - 05/31/2024 8:29 AM EST error documented in this [id number] Telephone encounter Note* Telephone Encounter - Margarita Burgos LPN - 05/27/2024 1:34 PM EST Pt is scheduled for appt with [facility] on 06/08/24. [id number] Miscellaneous Notes* Telephone Encounter - Margarita Burgos LPN - 05/27/2024 1:34 PM EST Pt is scheduled for appt with [facility] on 06/08/24. * Telephone Encounter - Margarita Burgos LPN - 05/27/2024 1:33 PM EST ----- Message from Arcelia Whyte sent at 05/27/2024 1:23 PM EST ----- Regarding: Calling back with updated information Contact: Patient Patient called in states was suppose to call her [facility] and make an appointment and thencall back with that information. Patient advised she is now scheduled for 06/08/24 at 1:20 and is requesting that her QUEtiapine (SEROQUEL) 400 MG tablet () be filled. Patient states she was not aware that the office closed early today but needs the fill as soon as possible. Requesting a call back at [phone]. Thanks documented in this [id number] Telephone encounter Note* Telephone Encounter - Margarita Burgos LPN - 05/27/2024 1:33 PM EST ----- Message from Arcelia Whyte sent at 05/27/2024 1:23 PM EST ----- Regarding: Calling back with updated information Contact: Patient Patient called in states was suppose to call her [facility] and make an appointment and thencall back with that information. Patient advised she is now scheduled for 06/08/24 at 1:20 and is requesting that her QUEtiapine (SEROQUEL) 400 MG tablet () be filled. Patient states she was not aware that the office closed early today but needs the fill as soon as possible. Requesting a call back at [phone]. Thanks [id number] Instructions* Patient Instructions* Mihai Elizalde CNP - [...] Velez in 3 months documented in this [id number] [facility] Office [...] - She mentions a previous hospitalization at [facility], where a foot amputation was considered [...] ORTHOPEDIC SURGERY left foot surgery PACEMAKER INSERTION CT AMPUTATION TOE METATARSOPHA (more content not included)...[facility] [id number] History of Present illness Narrative* Mihai Elizalde CNP - 05/13/2024 8:50 AM EST [facility] Interventional Pain Management Office [...] - She mentions a previous hospitalization at [facility], where a foot amputation was considered [...] so we will maintain this for now [facility]. She continues Lyrica 75mg one capsule BID [...] ORTHOPEDIC SURGERY left foot surgery PACEMAKER INSERTION CT AMPUTATION TOE METATARSOPHALANGEAL JOINT Left 04/01/2024 Procedure: AMPUTATION LEFT HALLUX; Surgeon: Shameka Castillo DPM; Location: [facility]; Service: Podiatry Social History Social [...] total) by mouth daily . Dexcom G6 Filler Mixer Mis Use as directed for continuous glucose [...] route daily . naloxone (NARCAN) 4 mg/actuation [place] Administer 1 spray into one nostril for [...] OPIOIDS Mihai Elizalde CNP Interventional Pain Management [facility] documented in this [id number] Progress note* Quick Note - Yvette Canchola RN - 04/29/2024 2:01 PM EST Spoke with Dr. Floyd Castillo, No dressing needed for patients foot. Leave open to air , Any drainagerecommend neosporin and band-aid [id number] Miscellaneous Notes* Quick Note - Yvette Canchola [...] injury Outcome: Partially Met documented in this [id number] Plan of care note* Plan of Care [...] Absence of physical injury Outcome: Partially Met [id number] [facility]12-06-2024 History of Present illness Narrative* Avila Rajan PA-C - 04/29/2024 9:21 AM EST [facility] NOTE ASSESSMENT: [...] daily . 90 tablet 1 Dexcom G6 Filler Mixer Misc Use as directed for continuous glucose [...] 100 each 2 naloxone (NARCAN) 4 mg/actuation [place] Administer 1 spray into one nostril for [...] exam: Patient arrives with EMS ([facility]). She ambulated off of EMS [...] symptoms: Patient arrives with EMS ([facility]). She ambulated off of EMS [...] Preciado CNP - 04/28/2024 7:37 AM EST [facility] [place] Assessment and Plan Addie Jean Baptiste is a 48 y.o. female patient of Stephany Pelayo PA-C with history of T2DM, HTN, bipolar disorder, and chronic back pain presented to [facility] on 01/12/2024 with left toe [...] Preciado CNP - 04/27/2024 7:42 AM EST [facility] [place] Assessment and Plan Addie Jean Baptiste is a 48 y.o. female patient of Stephany Pelayo PA-C with history of T2DM, HTN, bipolar disorder, and chronic back pain presented to [facility] on 01/12/2024 with left toe [...] normal mood and affect documented in this [id number] Hospital course Narrative* Lucina Preciado CNP - 04/29/2024 8:25 AM EST Images from the original note were not included. [facility] [place] [facility] Addie Jean Baptiste Admitted: 04/26/2024 Discharge Date: 04/29/24 PCP Handoff Recommended Outpatient Testing Follow up with podiatry Results Pending At Discharge NONE Clinical Summary Addie Jean Baptiste is a 48 y.o. female patient of Stephany Pelayo PA-C with history of T2DM, HTN, bipolar disorder, and chronic back pain presented to [facility] on 01/12/2024 with left toe [...] mg/dL. Hypertension BP uncontrolled. Continue metoprolol and HSAJI inhibitor Seizure disorder [...] daily . Quantity: 90 tablet Dexcom G6 Filler Mixer Mis Generic drug: blood-glucose meter,continuous Use as [...] a day . Quantity: 60 tablet lancets [facility] 1 Lancet by Miscellaneous route 3 (three) [...] . Quantity: 100 each naloxone 4 mg/actuation [place] Commonly known as: NARCAN Administer 1 spray [...] on 04/29/24, 8:26 AM documented in this [id number] Telephone encounter Note* Telephone Encounter - Moo Louise RN - 04/28/2024 3:06 PM EST Pt in hospital, infection in toe amputation site. Due for refill on 04/22/24. [id number] Miscellaneous Notes* Telephone Encounter - Moo Louise RN - 04/28/2024 3:06 PM EST Pt in hospital, infection in toe amputation site. Due for refill on 04/22/24. documented in this [id number] [facility] 04-28-2024 Plan of care note* Plan of [...] Absence of pressure injury Outcome: Partially Met [id number] [facility]12-04-2024 Consult note* Avila Rajan PA-C - 04/27/2024 10:35 AM ESTAssociated Order(s): IP CONSULT TO PODIATRY Images from the original note were not included. [facility] H&P/CONSULT ASSESSMENT: Diabetes [...] removing the stitches. Betadine dry sterile dressing slubber frame changer the amputation site. -- OR Plans: None - ABX: cefazolin based on recent surgical cultures, per primary - DSG: Betadine dry sterile dressing slubber frame changer the amputation site. - WBS: Heel [...] listed below who WAS ADMITTED TO [facility] 04/26/2024WITH postop toe infection Chief Complaint [...] ORTHOPEDIC SURGERY left foot surgery PACEMAKER INSERTION CT AMPUTATION TOE METATARSOPHALANGEAL JOINT Left 04/01/2024 Procedure: AMPUTATION LEFT HALLUX; Surgeon: Shameka Castillo DPM; Location: [facility]; Service: Podiatry FAMILY MEDICAL HISTORY: [...] daily . 90 tablet 1 Dexcom G6 Filler Mixer Misc Use as directed for continuous glucose [...] 100 each 2 naloxone (NARCAN) 4 mg/actuation [place] Administer 1 spray into one nostril for [...] exam: Patient arrives with EMS ([facility]). She ambulated off of EMS [...] symptoms: Patient arrives with EMS ([facility]). She ambulated off of EMS [...] Castillo DPM at 04/28/2024 8:17 AM EST [id number] Consult note* Avila Rajan PA-C - 04/27/2024 10:35 AM ESTAssociated Order(s): IP CONSULT TO PODIATRY Images from the original note were not included. [facility] H&P/CONSULT ASSESSMENT: Diabetes [...] removing the stitches. Betadine dry sterile dressing slubber frame changer the amputation site. -- OR Plans: None - ABX: cefazolin based on recent surgical cultures, per primary - DSG: Betadine dry sterile dressing slubber frame changer the amputation site. - WBS: Heel [...] listed below who WAS ADMITTED TO [facility] 04/26/2024WITH postop toe infection Chief Complaint [...] ORTHOPEDIC SURGERY left foot surgery PACEMAKER INSERTION CT AMPUTATION TOE METATARSOPHALANGEAL JOINT Left 04/01/2024 Procedure: AMPUTATION LEFT HALLUX; Surgeon: Shameka Castillo DPM; Location: [facility]; Service: Podiatry FAMILY MEDICAL HISTORY: [...] Units 45 Units Subcutaneous Nightly Lucina Preciado, CORRECTIONAL FACILITY PSYCHIATRIST insulin lispro (AdmeLOG,HumaLOG) injection 0-15 Units 0-15 [...] injection 0.4 mg 0.4 mg Intravenous PRN Harhsad Rizzo MD nicotine (NICODERM CQ) 14 mg/24 [...] daily . 90 tablet 1 Dexcom G6 Filler Mixer Misc Use as directed for continuous glucose [...] . 90 tablet 1 miscellaneous medical supply [facility] 1 each by Miscellaneous route daily . 100 each 2 naloxone (NARCAN) 4 mg/actuation [place] Administer 1 spray into one nostril for [...] exam: Patient arrives with EMS ([facility]). She ambulated off of EMS [...] symptoms: Patient arrives with EMS ([facility]). She ambulated off of EMS [...] 04/28/2024 8:17 AM EST documented in this [id number] [facility] 04-27-2024 Plan of care note* Plan of [...] Absence of pressure injury Outcome: Partially Met [id number] History and physical note* Harshad Rizzo MD - 04/26/2024 11:47 PM EST [facility] [place]ICAL -- [facility] Patient Name: Addie Jean Baptiste : 1975 MR #: [id number] Admit Date: 04/26/2024 Physicians: Stephany Pelayo PA-C (Family); No ref. provider found (Referring) Addie Jean Baptiste is a 48 y.o. female patient of Stephany Pelayo PA-C with history of T2DM, HTN, bipolar disorder, and chronic back pain presented to [facility] on 01/12/2024 with left toe [...] ORTHOPEDIC SURGERY left foot surgery PACEMAKER INSERTION CT AMPUTATION TOE METATARSOPHALANGEAL JOINT Left 04/01/2024 Procedure: AMPUTATION LEFT HALLUX; Surgeon: Shameka Castillo DPM; Location: [facility]; Service: Podiatry Family History Family [...] 04/26/24 11:47 PM Medications 04/26/24 11:47 PM [id number] History and physical note* Harshad Rizzo MD - 04/26/2024 11:47 PM EST [facility] [place]ICAL [place] [facility] Patient Name: Addie Jean Baptiste : 1975 MR #: [id number] Admit Date: 04/26/2024 Physicians: Stephany Pelayo PA-C (Family); No ref. provider found (Referring) Addie Jean Baptiste is a 48 y.o. female patient of Stephany Pelayo PA-C with history of T2DM, HTN, bipolar disorder, and chronic back pain presented to [facility] on 01/12/2024 with left toe [...] ORTHOPEDIC SURGERY left foot surgery PACEMAKER INSERTION CT AMPUTATION TOE METATARSOPHALANGEAL JOINT Left 04/01/2024 Procedure: AMPUTATION LEFT HALLUX; Surgeon: Shameka Castillo DPM; Location: [facility]; Service: Podiatry Family History Family [...] Medications 04/26/24 11:47 PM documented in this [id number] Physician Emergency department Note* Jacoby Dooley MD - 04/26/2024 10:54 PM EST [facility] EM[facility]Y [facility] ED Provider Note: Name: [...] resistant Staphylococcus aureus) Pacemaker Seizures (HCC) Stroke ([facility]) Patient Active Problem List Diagnosis Hypertension S/P placement of cardiac pacemaker Type 2 diabetes mellitus with diabetic polyneuropathy, with long-term current use of insulin ([facility]) Bipolar 1 disorder (HCC) Seizures ([facility]) Chronic chest pain GERD (gastroesophageal reflux disease) Hypothyroidism Diabetic peripheral neuropathy ([facility]) Insomnia Generalized weakness Muscle spasms of both lower extremities Bowel incontinence Vitamin B12 deficiency Vitamin D deficiency Cigarette nicotine dependence COPD (chronic obstructive pulmonary disease) ([facility]) Left-sided weakness History of stroke Visual loss, left eye Family history of pulmonary fibrosis Family history of dementia Urinary incontinence Chronic headaches Hypercholesterolemia CKD (chronic kidney disease) Retinal hemorrhage Diabetic ulcer of left great toe ([facility]) Hypertensive urgency Chronic pain syndrome Chronic pain of both knees Abdominal wound dehiscence Candidiasis Abnormal pigmentation of skin Toe osteomyelitis ([facility]) Postoperative infection PSurg: Past Surgical History: Procedure Laterality Date CHOLECYSTECTOMY FOOT SURGERY HYSTERECTOMY ORTHOPEDIC SURGERY left foot surgery PACEMAKER INSERTION CT AMPUTATION TOE METATARSOPHALANGEAL JOINT Left 04/01/2024 Procedure: AMPUTATION LEFT HALLUX; Surgeon: Shameka Castillo DPM; Location: [facility]; Service: Podiatry Allergies: Iodides, Ketorolac, [...] total) by mouth daily . Dexcom G6 Filler Mixer Misc Use as directed for continuous glucose [...] route daily . naloxone (NARCAN) 4 mg/actuation [place] Administer 1 spray into one nostril for [...] All other components within normal limits Narrative: [facility] has implemented the eGFR [...] Procedure Abnormality Status --------- ------ CBC Auto Differential[[id number]] Abnormal Final result Please view results for [...] call required?: No Jacoby Dooley MD 04/26/24 8069 [id number] Emergency department Note* Jacoby Dooley MD - 04/26/2024 10:54 PM EST [facility] ED Provider Note: Name: [...] MRSA (methicillin resistant Staphylococcus aureus) Pacemaker Seizures ([facility]) Stroke ([facility]) Patient Active Problem List Diagnosis Hypertension S/P placement of cardiac pacemaker Type 2 diabetes mellitus with diabetic polyneuropathy, with long-term current use of insulin (HCC) Bipolar 1 disorder (HCC) Seizures ([facility]) Chronic chest pain GERD (gastroesophageal reflux disease) Hypothyroidism Diabetic peripheral neuropathy ([facility]) Insomnia Generalized weakness Muscle spasms of both lower extremities Bowel incontinence Vitamin B12 deficiency Vitamin D deficiency Cigarette nicotine dependence COPD (chronic obstructive pulmonary disease) ([facility]) Left-sided weakness History of stroke Visual loss, left eye Family history of pulmonary fibrosis Family history of dementia Urinary incontinence Chronic headaches Hypercholesterolemia CKD (chronic kidney disease) Retinal hemorrhage Diabetic ulcer of left great toe ([facility]) Hypertensive urgency Chronic pain syndrome Chronic pain of both knees Abdominal wound dehiscence Candidiasis Abnormal pigmentation of skin Toe osteomyelitis ([facility]) Postoperative infection PSurg: Past Surgical History: Procedure Laterality Date CHOLECYSTECTOMY FOOT SURGERY HYSTERECTOMY ORTHOPEDIC SURGERY left foot surgery PACEMAKER INSERTION CT AMPUTATION TOE METATARSOPHALANGEAL JOINT Left 04/01/2024 Procedure: AMPUTATION LEFT HALLUX; Surgeon: Shameka Castillo DPM; Location: [facility]; Service: Podiatry Allergies: Iodides, Ketorolac, [...] total) by mouth daily . Dexcom G6 Filler Mixer Misc Use as directed for continuous glucose [...] route daily . naloxone (NARCAN) 4 mg/actuation [place] Administer 1 spray into one nostril for [...] All other components within normal limits Narrative: [facility] has implemented the eGFR [...] Procedure Abnormality Status --------- ------ CBC Auto Differential[[id number]] Abnormal Final result Please view results for [...] call required?: No Jacoby Dooley MD 04/26/24 9613 * Ne Mike RN - 04/26/2024 9:45 PM EST Pt reports not taking her BP medication today * Rita Weinstein LPN - 04/26/2024 7:40 PM EST Patient reports 03/03 pain and states she took her last percocet yesterday. Patient also reports that she does take medication for high blood pressure. * Rita Weinstein LPN - 04/26/2024 7:35 PM EST Patient arrives with EMS ([facility]). She ambulated off of EMS [...] of arrival: Comments: 29 documented in this [id number] Emergency department Note* Ne Mike RN - 04/26/2024 9:45 PM EST Pt reports not taking her BP medication today [id number] Emergency department Note* Rita Weinstein LPN - 04/26/2024 7:40 PM EST Patient reports 10/10 pain and states she took her last percocet yesterday. Patient also reports that she does take medication for high blood pressure. [id number] Emergency department Triage note* Rita Weinstein LPN - 04/26/2024 7:35 PM EST Patient arrives with EMS ([facility]). She ambulated off of EMS [...] She reports redness, pain and clear drainage. [id number] Emergency department Note* Pavithra Lezama RN - 04/26/2024 7:35 PM EST Bed: 18 Expected date: Expected time: Means of arrival: Comments: 29 [id number] Note* Addendum Note - Mihai Elizalde CNP - 04/14/2024 11:03 AM ESTAddended by: MIHAI ELIZALDE on: 04/14/2024 11:03 AM Modules accepted: Orders [id number] Miscellaneous Notes* Addendum Note - Mihai Elizalde [...] has 1 tablet left. documented in this [id number] Telephone encounter Note* Telephone Encounter - Jim Velez DO - 04/12/2024 11:30 PM EST Already sent remaining 15 tabs [id number] Miscellaneous Notes* Telephone Encounter - Jim Velez [...] has 1 tablet left. documented in this [id number] Telephone encounter Note* Telephone Encounter - Moo Louise RN - 04/12/2024 5:09 PM EST Pt had to fill 15 tablets and pay oop due to insurance would not cover. Jean is trying to resubmit to insurance with updated info. But will need new rx for remaining 45 tablets. She only received 1 1/2 day supply and only has 1 tablet left. [id number] History of Present illness Narrative* Theresa. Roberto, SHYANN - 04/06/2024 8:29 AM EST PA request from [facility] for Omnipod faxed * Maite Adams LPN - 03/30/2024 2:52 PM EST [facility] prescription request form complete for Omnipod / faxed documented in this [id number] Hospital course Narrative* Ruthy Dong MD - 04/04/2024 12:23 PM EST Images from the original note were not included. [facility] [place] [...] disorder, and chronic back pain presented to [facility] on 03/25/2024 with left toe [...] dos eot 35U qHs Diabetic diet Consulted belt builder helper: Resume insulin pump at discharge, verified insulin [...] daily . Quantity: 90 tablet Dexcom G6 Filler Mixer [facility] Generic drug: blood-glucose meter,continuous Use as directed [...] on 04/04/24, 12:23 PM documented in this [id number] [facility] 04-04-2024 History of Present illness Narrative* Avila Rajan PA-C - 04/04/2024 9:58 AM EST [facility]GR[facility] NOTE ASSESSMENT [...] capsule 500 mg 500 mg Oral Q12H [facility] Enrique Anthony, CORRECTIONAL FACILITY PSYCHIATRIST 500 mg at 04/03/242124 citalopram (CELEXA) tablet 40 mg 40 mg Oral Daily Juwan Smith MD 40 mg at 04/04/24 0857 enoxaparin (LOVENOX) syringe 40 mg 40 mg Subcutaneous BID Lowell Roberts, [facility] [facility] 40 mg at 04/04/24 0856 hydrALAZINE (APRESOLINE) [...] 0.1 mg Intravenous PRN Floyd Rubin [facility],PharmD 0.1 mgat 03/28/24 0520 And naloxone (NARCAN) [...] Verio . 100 strip 5 Dexcom G6 Filler Mixer Mis Use as directed for continuous glucose [...] Abnormal ECG Confirmed by Inessa Rao MD ([id number]) on 03/25/2024 8:01:09 AM XR Toe(s) Left [...] Rajput MD - 04/03/2024 6:55 AM EST [facility] [place] Assessment and Plan Addie Jean Baptiste is a 48 y.o. female patient of Stephany Pelayo PA-C with history of T2DM, HTN, bipolar disorder, and chronic back pain presented to [facility] on 03/25/2024 with left toe [...] dos eot 35U qHs Diabetic diet Consulted belt builder helper: Resume insulin pump at discharge, verified insulin [...] 04/04 Patient requires continued hospitalization due to: Prenatal Genetic Counselor request Discharge Location:home Quality Measures DVT Prophylaxis: [...] Rajput MD - 04/02/2024 8:43 AM EST [facility] [place] Assessment and Plan Addie Organ is a 48 y.o. female patient of Stephany Pelayo PA-C with history of T2DM, HTN, bipolar disorder, and chronic back pain presented to [facility] on 03/25/2024 with left toe [...] night Blood sugar improving Diabetic diet Consult belt builder helper: Hypertension Hyperlipidemia Continue to hold SHAJI inhibitor, [...] 04/04 Patient requires continued hospitalization due to: Prenatal Genetic Counselor request Discharge Location:home Quality Measures DVT Prophylaxis: [...] PM EST [facility] PROGRESS NOTE ASSESSMENT AND PLAN: Diabetes [...] Jean Baptiste Admit Date: [id number] MR #: [id number] : 1975 Perpetual Assessment: Addie Jean Baptiste [...] Rajput MD - 04/01/2024 10:36 AM EST [facility] [place] Assessment and Plan Addie Organ is a 48 y.o. female patient of Stephany Pelayo PA-C with history of T2DM, HTN, bipolar disorder, and chronic back pain presented to [facility] on 03/25/2024 with left toe [...] night Blood sugar improving Diabetic diet Consult belt builder helper: Hypertension Hyperlipidemia Continue to hold SHAJI inhibitor, [...] Patient states she is requested amputation per real estate director Objective BP 138/82 (BP Location: Left arm, [...] pain Nutrition Related Allergies/Intolerances: latex Cultural or Orthodoxy Dietary Needs :No Cultural or Orthodoxy Dietary needs noted Patient/family comments:Deferred: Pt sleeping [...] Pump Inhibitors (Chronic Use) Ene MUNROE Office [phone] * Floyd Castillo DPM - 03/31/2024 12:51 PM EST Images from the original note were not included. [facility] PROGRESS NOTE ASSESSMENT [...] mg 500 mg Oral Q12H Enrique Gonzales, CORRECTIONAL FACILITY PSYCHIATRIST 500 mg at 03/31/24902 citalopram (CELEXA) tablet 40 mg 40 mg Oral Daily Juwan Smith MD 40 mg at 11/07/24 0903 enoxaparin (LOVENOX) syringe 40 mg 40 mg Subcutaneous BID Lowell Roberts [facility],PharmD 40 mg at 03/31/24902 insulin glargine (LANTUS) [...] 0.1 mg Intravenous PRN Floyd Rubin [facility],PharmD 0.1 mgat 03/28/24 0520 And naloxone (NARCAN) injection 0.4 mg 0.4 mg Intravenous PRN Floyd Rubin [facility],PharmD 0.4 mgat 03/26/24 2300 nicotine (NICODERM CQ) [...] Verio . 100 strip 5 Dexcom G6 Filler Mixer Mis Use as directed for continuous glucose [...] Abnormal ECG Confirmed by Inessa Rao MD ([id number]) on 03/25/2024 8:01:09 AM XR Toe(s) Left [...] Rajput MD - 03/31/2024 11:25 AM EST [facility] [place] Assessment and Plan Addie Organ is a 48 y.o. female patient of Stephany Pelayo PA-C with history of T2DM, HTN, bipolar disorder, and chronic back pain presented to [facility] on 03/25/2024 with left toe [...] night Blood sugar improving Diabetic diet Consult belt builder helper: Hypertension Hyperlipidemia Continue to hold metoprolol and [...] Jean Baptiste Admit Date: [id number] MR #: [id number] : 1975 Perpetual Assessment: Addie Jean Baptiste [...] sodium chloride (PF) 5 mL Intravenous Q8H [facility] timolol 1 drop Left Eye Daily tiZANidine [...] Rajput MD - 03/30/2024 1:38 PM EST [facility] [place] Assessment and Plan Addie Organ is a 48 y.o. female patient of Stephany Pelayo PA-C with history of T2DM, HTN, bipolar disorder, and chronic back pain presented to [facility] on 03/25/2024 with left toe [...] 30 units at night Diabetic diet Consult belt builder helper: Hypertension Hyperlipidemia Continue to hold metoprolol and [...] Jean Baptiste Admit Date: [id number] MR #: [id number] : 1975 Perpetual Assessment: Addie Jean Baptiste [...] not included. [facility] PROGRESS NOTE ASSESSMENT [...] 30 mg Subcutaneous Daily Radha Castillo [facility],PharmD 30 mg at 03/29/242115 insulin glargine (LANTUS) [...] 0.1 mg Intravenous PRN Floyd Rubin, [facility],PharmD 0.1 mgat 03/28/24 0520 And naloxone (NARCAN) injection 0.4 mg 0.4 mg Intravenous PRN Floyd Rubin, [facility],PharmD 0.4 mgat 03/26/24 2300 nortriptyline (PAMELOR) capsule [...] Verio . 100 strip 5 Dexcom G6 Filler Mixer Misc Use as directed for continuous glucose [...] Abnormal ECG Confirmed by Inessa Rao MD ([id number]) on 03/25/2024 8:01:09 AM XR Toe(s) Left [...] Jean Baptiste Admit Date: [id number] MR #: [id number] : 1975 Perpetual Assessment: Addie Jean Baptiste [...] Rajput MD - 03/29/2024 10:33 AM EST [facility] [place] Assessment and Plan Addie Jean Baptiste is a 48 y.o. female patient of Stephany Pelayo PA-C with history of T2DM, HTN, bipolar disorder, and chronic back pain presented to [facility] on 03/25/2024 with left toe [...] 20u at night today Diabetic diet Consult belt builder helper: Hypertension Hyperlipidemia Continue to hold metoprolol and [...] Rajput MD - 03/28/2024 1:37 PM EST [facility] [place] Assessment and Plan Addie Organ is a 48 y.o. female patient of Stephany Pelayo PA-C with history of T2DM, HTN, bipolar disorder, and chronic back pain presented to [facility] on 03/25/2024 with left toe [...] to continue insulin pump Diabetic diet Consult belt builder helper: Admits that she has not been bolusing [...] Jean Baptiste Admit Date: [id number] MR #: [id number] : 1975 Perpetual Assessment: Addie Jean Baptiste [...] AM EST [facility] PROGRESS NOTE ASSESSMENT [...] 0.4 mg Intravenous PRN Floyd Rubin [facility],PharmD 0.4 mgat 03/26/24 2300 nortriptyline (PAMELOR) capsule [...] Verio . 100 strip 5 Dexcom G6 Filler Mixer Mis Use as directed for continuous glucose [...] Abnormal ECG Confirmed by Inessa Rao MD ([id number]) on 03/25/2024 8:01:09 AM XR Toe(s) Left [...] Hendrix DO - 03/27/2024 12:08 PM EST [facility] [place] Assessment and Plan Addie Jean Baptiste is a 48 y.o. female patient of Stephany Pelayo PA-C with history of T2DM, HTN, bipolar disorder, and chronic back pain presented to [facility] on 03/25/2024 with left toe [...] to continue insulin pump Diabetic diet Consult belt builder helper: Admits that she has not been bolusing [...] services and availability. Rev. Fawn Hinton MDiv, [facility] Staff Revolving Inventory ClerkVelia Oscar Patients Response to Pastoral Care: Appeared to be well-engaged Planning for Future Visits: PRN 03/27/24 1040 Visit Background Visit With Patient Visit By Staff Revolving Inventory Clerk Visit Progression Introduction Visit Requested By Revolving Inventory Clerk Initiated Visit Source Revolving Inventory Clerk Initiated Visit Type Inpatient;Rounding Visit Circumstances and Events Routine Visit Visit Length (minutes) 30 Patient's Response to Pastoral Care Appeared to be well-engaged Visit Planning PRN Spiritual Assessment Assessed during this visit Orthodoxy Assessment Not assessed during this visit Family assessment provided? Not assessed during this visit Patient Spiritual Needs Assessment Sources of Connection Daughter;Granddaughter;Grandson;Son Belief Practices Not Discussed Coping Mechanisms Family Support Spiritual Diagnosis Disconnected from Sources of Support Facilitated Interventions Active Listening;Explained Role of the Revolving Inventory Clerk;Goal Setting Spiritual/Emotional Outcomes Appears less anxious;Appears more [...] AM EDT [facility] PROGRESS NOTE ASSESSMENT AND PLAN: Diabetes [...] Lopez, BEATRIZ - 03/26/2024 8:33 AM EDT [facility] [place] Assessment and Plan Addie Organ is a 48 y.o. female patient of Stephany Pelayo PA-C with history of T2DM, HTN, bipolar disorder, and chronic back pain presented to [facility] on 03/25/2024 with left toe [...] to continue insulin pump Diabetic diet Consult belt builder helper: Admits that she has not been bolusing [...] MRSA (methicillin resistant Staphylococcus aureus) Pacemaker Seizures ([facility]) Stroke ([facility]) Objective: Estimated Creatinine Clearance: 38.6 mL/min [...] 12/09/2014 5.50 (H) Pharmacist: Floyd Rubin [facility],PharmD Contact Number: [phone] * Yuriy Wheeler RN - 03/25/2024 3:56 [...] of distress. Care continues. documented in this [id number] Miscellaneous Notes* Plan of Care - Ifeoma [...] (48 y.o.) Date of Service: 04/01/2024 CSN: [id number] Procedure(s): AMPUTATION LEFT HALLUX IPJ Pre-Operative Diagnoses: * osteomyelitis Post-Operative Diagnoses: * Same as Pre-Op Diagnosis Surgeons and Role: * Shameka Castillo DPM - Primary Anesthesiologist: Mk Colorado MD NON LINEAR EDITOR: Monique Palomares CRNA Cherry Dipper: Agueda Hunt RN Scrub Person: Monique Cheatham [...] needs to be reassessed. Enrique Anthony CNP [facility] - Infectious Diseases Office: [phone] * Quick Note - Radha Parikh RN [...] RN - 03/26/2024 11:54 PM EDT [place] [facility] [place] Br[place] that patient's BP was 71/46 with slurred speech and Blood sugar of 348. Dr Brar came to the floor and seen patient. See new orders. * Significant Event - John Solis MD - 03/26/2024 11:02 PM EDT [facility] [place] Significant [...] - admitting glucose 646 HgbA1c 9.9 Consult belt builder helper Lactic acidosis LA 3.0 - 2.1 IVF [...] sensation Outcome: Partially Met documented in this [id number] [facility] 04-02-2024 [facility]11-08-2024 [facility] 04-01-2024 [facility]11-08-2024 [facility] 03-31-2024 [facility]11-07-2024 Consult note* Kat Baldwin MSW [facility] [employer] - 03/31/2024 11:37 AM ESTAssociated Order(s): IP [...] medical history of Anxiety, Bipolar 1 disorder ([facility]), Chronic back pain, Chronic kidney disease, stage 3 unspecified ([facility]), Coronary artery disease, Depression, Diabetes mellitus ([facility]), Hypertension, MRSA (methicillin resistant Staphylococcus aureus), Pacemaker, Seizures ([facility]), and Stroke ([facility]). Left DFI with ?OM: podiatry following [...] or discussed with Dr. Bean Anthony CNP [facility] - Infectious Diseases Office: [phone] Inpatient consult to Infectious Diseases Consult performed by: Enrique Anthony CNP Consult ordered by: Leticia Rajput MD Reason for consult: osteo big toe Chief Complaint: Toe pain HPI: Addie Jean Baptiste is a 48 y.o. female has a past medical history of Anxiety, Bipolar 1 disorder ([facility]), Chronic back pain, Chronic kidney disease, stage 3 unspecified ([facility]), Coronary artery disease, Depression, Diabetes mellitus ([facility]), Hypertension, MRSA (methicillin resistant Staphylococcus aureus),Pacemaker, Seizures ([facility]), and Stroke ([facility]). . She presented on 03/24/2024 with [...] Verio . 100 strip 5 Dexcom G6 Filler Mixer Mis Use as directed for continuous glucose [...] Patient Name: Addie Jean Baptiste MR #: [id number] : 1975 Requesting provider: hospitalist Reason for [...] sugar. One Touch Verio . Dexcom G6 Filler Mixer Misc Use as directed for continuous glucose [...] I have reviewed Progress Notes in the [facility] EHR and CareEverywhere. [x] I have interpreted/reviewed lab tests and radiography data in the [facility] EHR. [x] I have discussed the case with the primary service. [x] I have ordered appropriate tests/labs Comments: Thank you for allowing us to participate in the care of this patient. We will continue to follow. Please call if questions or concerns arise. * Merrick Almanza MD - 03/27/2024 12:12 PM ESTAssociated Order(s): IP CONSULT TO FASHION CONSULTANT Critical Care Consult Note Reason for Consultation: [...] 12/08/23 06/05/24 Sahara Sanchez MD Dexcom G6 Filler Mixer Misc Use as directed for continuous glucose [...] 12:18 PM EDTAssociated Order(s): IP CONSULT TO ANIMAL ECOLOGIST; IP CONSULT TO ANIMAL ECOLOGIST Admission Dx: Reviewed H&P, Chart Review and [...] YEAR OLD female WAS ADMITT[facility] [place] [facility] [place] WITH Chief Complaint Patient presents [...] 0.1 mg Intravenous PRN Floyd Rubin [facility],PharmD And naloxone (NARCAN) injection 0.4 mg 0.4 mg Intravenous PRN Floyd Rubin, [facility],PharmD nortriptyline (PAMELOR) capsule 25 mg 25 mg [...] 1,250 mg Intravenous Q24H Floyd Rubin, [facility],PharmD Medications Prior to Admission Medication Sig Dispense [...] daily . 90 tablet 1 Dexcom G6 Filler Mixer Misc Use as directed for continuous glucose [...] 0 Shameka Castillo DPM documented in this [id number] [facility] 03-31-2024 [facility]11-06-2024 History of Present illness Narrative* Maite Adams LPN - 03/30/2024 2:52 PM EST [facility] prescription request form complete for Omnipod / faxed documented in this [id number] [facility] 03-30-2024 [facility]11-06-2024 [facility] 03-29-2024 [facility]11-05-2024 [facility] 03-28-2024 [facility]11-04-2024 [facility] 03-28-2024 [facility]11-03-2024 [facility] 03-26-2024 [facility]11-02-2024 [facility] 03-25-2024 History and physical note* Juwan Smith MD - 03/25/2024 12:22 AM EDT Images from the original note were not included. HMS HISTORY AND PHYSICAL -- [facility] Patient Name: Addie Jean Baptiste : 1975 MR #: [id number] Admit Date: 03/24/2024 Physicians: Stephany Pelayo PA-C (Family); No ref. provider found (Referring) Addie Jean Baptiste is a 48 y.o. female patient of Stephany Pelayo PA-C with history of T2DM, HTN, bipolar disorder, and chronic back pain presented to [facility] on 03/25/2024 with left toe [...] expedite correspondence this note was generated by [employer] voice recognition software. The voice recognition software is inherently subject to errors including those of syntax and sound-alike substitutions which may escape proofreading. If such errors are discovered, or if there are any qu estions or concerns regarding the recommendations/plan of care, please contact the author of the note prior to undertaking the recommendations/plan of care. documented in this [id number] Emergency department Note* Ani Gonzales CNP - 03/24/2024 10:33 PM EDTAssociated Order(s): ECG 12- Lead Images from the original note were not included. [place] [id number] NAME: Addie Jean Baptiste AGE: 48 y.o. PCP: Stephany Pelayo PA-C CSN: [id number] Chief Complaint: Toe Pain CLINICAL IMPRESSION: 1. [...] available in inpatient encounters. Please contact a imaging system administrator. HISTORY Chief Complaint: Toe Pain History of [...] total) by mouth daily . Dexcom G6 Filler Mixer [facility] Use as directed for continuous glucose monitoring [...] All other components within normal limits Narrative: [facility] has implemented the eGFR [...] Procedure Abnormality Status --------- ------ CBC Auto Differential[[id number]] Abnormal Final result Please view results for [...] sinus rhythm and sinus tachycardia BPM: 109 CT Interval: 176 QRS Interval: 82 QT Interval: 328 Clinical impression: abnormal ECG and sinus tachycardia Ani Gonzales, MSN, INTAKE MANAGER-BC, ENP-C Emergency Department Nurse Practitioner [facility] Emergency Department (Please note that portions [...] recurrent. Ctiy medic 29 documented in this [id number] Telephone encounter Note* Telephone Encounter - Moo Louise RN - 03/24/2024 3:21 PM EDT Pt called - [facility] is out of Percocet. Pharmacy changed to [facility] on refill request. Pt asked to let you know she is seeing real estate director on Thursday for possible surgery. [id number] Miscellaneous Notes* Telephone Encounter - Moo Louise RN - 03/24/2024 3:21 PM EDT Pt called - [facility] is out of Percocet. Pharmacy changed [facility] on refill request. Pt asked to let you know she is seeing real estate director on Thursday for possible surgery. documented in this [id number] [facility] INTERNAL MEDICINE [address] [place] [address] Subjective Patient ID: Addie Jean Baptiste is [...] daily . 90 tablet 1 Dexcom G6 Filler Mixer Mis Use as directed for continuous glucose monitoring . 1 each 0 Dexcom G6 Sensor Simran Use as directed for continuous glucose monitoring change every 10 days . 3 each 11 Dexcom G6 Transmitter Simran Use as directed for continuous glucose monitoring change every 3 months . 1 each 3 glucagon (Gv (more content not included)...[facility] 03-22-2024 History of Present illness Narrative* Stephany Pelayo PA-C - 03/22/2024 10:53 AM EDT [facility] INTERNAL MEDICINE [address] [facility]. [place] [id number] Subjective Patient ID: Addie Jean Baptiste is [...] MRSA (methicillin resistant Staphylococcus aureus) Pacemaker Seizures ([facility]) Stroke ([facility]) Past Surgical History: Procedure Laterality Date CHOLECYSTECTOMY [...] mouth daily . 90 tablet1 Dexcom G6 Filler Mixer Misc Use as directed for continuous glucose [...] up. Stephany Pelayo PA-C documented in this [id number] Telephone encounter Note* Telephone Encounter - Moo Lousie RN - 03/08/2024 5:56 PM EDT Per med list, patient not taking Tizanadine. But she requested a refill. [id number] Miscellaneous Notes* Telephone Encounter - Moo Louise RN - 03/08/2024 5:56 PM EDT Per med list, patient not taking Tizanadine. But she requested a refill. documented in this [id number] NotePROGRESS :This report has been cancelled.[facility]09-16-2024 Telephone encounter Note* Telephone Encounter - Magnolia [...] mg total) by mouth daily. 10/07/23 Pharmacy: [facility] pharmacy Patient last seen: 10/07/23 Patient next scheduled appt: 03/01/24 [id number] Miscellaneous Notes* Telephone Encounter - Magnolia Chavira [...] mg total) by mouth daily. 10/07/23 [address]: [facility] pharmacy Patient last seen: 10/07/23 Patient next scheduled appt: 03/01/24 documented in this [id number] Telephone encounter Note* Telephone Encounter - Jay Peralta MA - 02/03/2024 2:23 PM EDT PA requires tablets please double check the rx I sent you please. [id number] Miscellaneous Notes* Telephone Encounter - Jay Peralta MA - 02/03/2024 2:23 PM EDT PA requires tablets please double check the rx I sent you please. * Telephone Encounter - Moo Louise RN - 02/03/2024 1:50 PM EDT Rcvd call from pharmacist at [facility]. RX states to take 1 capsule 2 times a day as needed, then it says 2 tabs p.o. nightly. Qty 60. Please correct and resend. documented in this [id number] Telephone encounter Note* Telephone Encounter - Moo Louise RN - 02/03/2024 1:50 PM EDT Rcvd call from pharmacist at [facility]. RX states to take 1 capsule 2 times a day as needed, then it says 2 tabs p.o. nightly. Qty 60. Please correct and resend. [id number] Instructions* Patient Instructions* Jim Velez DO - [...] 2 p.o. nightly only documented in this [id number] History of Present illness Narrative* Jim Velez DO - 02/02/2024 4:05 PM EDT [facility] Interventional Pain Management Office [...] - She mentions a previous hospitalization at [facility], where a foot amputation was considered [...] tablet (1,000 mcg total) by mouth daily Reasons:[facility]. Dexcom G6 Filler Mixer Misc Use as directed for continuous glucose [...] by mouth daily . miscellaneous medical supply [facility] 1 each by Miscellaneous route daily . [...] OPIOIDS Jim Velez D.O. Interventional Pain Management [facility] documented in this [id number] History of Present illness Narrative* Rafaela Medrano, BEATRIZ - 01/27/2024 1:50 PM EDT HPI Addie Organ is a 48 y.o. female Chief Complaint Patient presents with Follow-up Hosp follow up-left big toe Addie Jean Baptiste presents for hospital follow-up. She was seen at [facility] on 01/12/24 - 01/18/24 with L diabetic [...] She has not been to pharmacy to hand picker her antibiotic. Reports she is in [...] polyneuropathy, with long-term current use of insulin ([facility]) Bipolar 1 disorder ([facility]) Seizures ([facility]) Chronic chest pain GERD (gastroesophageal reflux disease) Hypothyroidism Diabetic peripheral neuropathy ([facility]) Insomnia Generalized weakness Diabetic ulcer of right foot associated with type 2 diabetes mellitus ([facility]) Muscle spasms of both lower extremities Bowel incontinence Vitamin B12 deficiency Vitamin D deficiency Cigarette nicotine dependence COPD (chronic obstructive pulmonary disease) ([facility]) Left-sided weakness History of stroke Visual loss, left eye Weight gain Family history of pulmonary fibrosis Family history of dementia Urinary incontinence Chronic headaches Hypercholesterolemia CKD (chronic kidney disease) Retinal hemorrhage Diabetic ulcer of left great toe ([facility]) Current Outpatient Medications: albuterol (PROVENTIL) 2.5 [...] (1,000 mcg total) by mouth daily Reasons: [facility] Disp: 90 tablet, Rfl: 1 Dexcom G6 Filler Mixer Misc, Use as directed for continuous glucose [...] this upon discharge, missed last day to hand picker from pharmacy Medications refilled as needed - recheck TSH for thyroid maintenance medication SOLO Recheck BMP today We discussed the following: ICD-10-CM ICD-9-CM 1. Diabetic ulcer of right foot associated with type 2 diabetes mellitus, unspecified part of foot,unspecified ulcer stage ([facility] [facility]) E11.621 250.80 doxycycline hyclate (VIBRAMYCIN) 100 MG capsule L97.519 707.15 metFORMIN (GLUCOPHAGE) 1000 MG tablet 2. Primary hypertension I10 401.9 metoprolol succinate (TOPROL-XL) 50 MG 24 hr tablet lisinopriL (PRINIVIL,ZESTRIL) 30 MG tablet atorvastatin (LIPITOR) 40 MG tablet 3. SOLO (acute kidney injury) ([facility]) N17.9 584.9 Basic Metabolic Panel 4. Hypothyroidism, [...] given to the patient. documented in this [id number] History of Present illness Narrative* Pippa Quiles RN - 01/18/2024 2:05 PM EDT AVS reviewed with patient. All requested supplies given to patient. Education on wound care provided to patient. Patient escorted to sister's car via wheelchair. All questions answered at this time. * Cris Cast RN - 01/18/2024 7:06 AM EDT Barriers to finding accepting [facility] agency: pt's home location (not many [facility] agencies in area), insurance not widely accepted [facility] agency: Accepted or Pending Name of agency: Accepted [facility]ENDING [facility] Referrals sent to: (names of agencies) Declined: [facility] - [facility] - [facility] - [facility] - [place] - [facility] - [place] [facility] - staffing [facility] - no PT/OT [facility] Please be aware [facility] agencies have up to 24hours to respond. Many [facility] agencies closed on weekends, may take until Thursday to receive responses. [facility] created for the following services: yes - SN/PT/OT Verify the demographics (residential address) [address] [place], [place] [address] What is the primary number to reach you? [phone] Who is your family physician/primary care physician? Stephany Pelayo PA-C [phone] Following physician will be: (list first name/last name) Do you have a caregiver and/or teachable caregiver (list relationship, name & phone #)? lives with family Estimated Discharge Date (KUNAL): 01/17 If discharge needs change, please reach out to Hub Liaison assigned on treatment team as hub is not notified of additional consults to [facility] once team is following. Thank you. * Mary Lou Castillo CNP - 01/17/2024 12:37 PM EDT NEPHROLOGY PROGRESS [facility] Patient Name: Addie Jean Baptiste Admit Date: [id number] MR #: [id number] : 1975 Perpetual Assessment: Addie Jean Baptiste [...] II/IIIa: Pt dos not follow with a endodontics dentist in the OP setting. Risk factors for [...] created by dictation via voice recognition software (Group Therapy Records). The completed note was reviewed for accuracy. [...] 3:55 PM EDT I personally performed a [id number] encounter and discussed in detail with the [...] created by dictation via voice recognition software (Group Therapy Records). The completed note was reviewed for accuracy. [...] at this time Assessment and Background Information: SDVT Needs Addressed: Food Insecurity, Housing Stability, Financial Resource Strain Resources Provided - Food Insecurity: Added to AVS, Other (CHW referral) Resources Provided - Housing Stability: Added to AVS, Other (CHW referral) * Ruthy Dong MD - 01/17/2024 7:34 AM EDT [facility] [place] Assessment and Plan Addie Jean Baptiste is a 48 y.o. female patient of Stephany Pelayo PA-C with history of T2DM, HTN, bipolar disorder, and chronic back pain presented to [facility] on 01/12/2024 with left toe [...] tablet (1,000 mcg total) by mouth daily Reasons:[facility]. Dexcom G6 Filler Mixer Misc Use as directed for continuous glucose [...] Dong MD - 01/16/2024 8:04 AM EDT [facility] [place] Assessment and Plan Addie Jean Baptiste is a 48 y.o. female patient of Stephany Pelayo PA-C with history of T2DM, HTN, bipolar disorder, and chronic back pain presented to [facility] on 01/12/2024 with left toe [...] tablet (1,000 mcg total) by mouth daily Reasons:[facility]. Dexcom G6 Filler Mixer Misc Use as directed for continuous glucose [...] Visit With Patient;Healthcare Provider Visit By Staff Revolving Inventory Clerk Visit Progression Attempt Visit Requested By Revolving Inventory Clerk Initiated Visit Source Revolving Inventory Clerk Initiated Visit Type Inpatient;Rounding Visit Circumstances and Events Routine Visit Visit Length (minutes) 5 Patient's Response to Pastoral Care Timing of Visit Not Optimal. Visit Rescheduled (Patient care needed) Visit Planning PRN Spiritual Assessment Unable to Assess during this visit Orthodoxy Assessment Unable to Assess during this visit Family assessment provided? Unable to asess during this visit Rev. Addie Bland MDiv. Staff Revolving Inventory Clerk [facility] Contact * Haven Pope RN - 01/15/2024 [...] Dong MD - 01/15/2024 9:04 AM EDT [facility] [place] Assessment and Plan Addie Jean Baptiste is a 48 y.o. female patient of Stephany Pelayo PA-C with history of T2DM, HTN, bipolar disorder, and chronic back pain presented to [facility] on 01/12/2024 with left toe [...] tablet (1,000 mcg total) by mouth daily Reasons:[facility]. Dexcom G6 Filler Mixer Misc Use as directed for continuous glucose [...] Other (CHW referral) Barriers to finding accepting [facility] agency: pt's home location (not many [facility] agencies in area), insurance not widely accepted HH agency: Accepted or Pending Name of agency: Accepted but cannot open for SOC until 01/18 [facility] Referrals sent to: (names of agencies) Declined: [facility] - [facility] [place] - [facility] - [facility] [place] - [facility] [place] - [facility] - [facility] Please be aware [facility] agencies have up to 24hours to respond. Many [facility] agencies closed on weekends, may take until Thursday to receive responses. [facility] created for the following services: yes - SN/PT/OT Verify the demographics (residential address) [address] [place] [address] What is the primary number to reach you? [phone] Who is your family physician/primary care physician? Stephany Pelayo PA-C [phone] Do you have a caregiver and/or teachable [...] PM EDT [facility] IN[facility]IENT PROGRESS NOTE ASSESSMENT AND PLAN: Diabetes [...] Dong MD - 01/14/2024 12:18 PM EDT [facility] [place] Assessment and Plan Addie Organ is a 48 y.o. female patient of Stephany Pelayo PA-C with history of T2DM, HTN, bipolar disorder, and chronic back pain presented to [facility] on 01/12/2024 with left toe [...] tablet (1,000 mcg total) by mouth daily Reasons:[facility]. Dexcom G6 Filler Mixer Misc Use as directed for continuous glucose [...] sodium chloride 0.9 % 100 mL/hr (01/13/24 4445) sodium chloride 0.9 % subcutaneous insulin pump * Cris Cast RN - 01/14/2024 7:09 AM EDT 01/14/24 2:32pm - Called to [facility], [facility], and [facility]. Results are listed below. More referrals sent. Barriers to finding accepting [facility] agency: pt's home location (not many [facility] agencies in area), insurance not widely accepted [facility] agency: Accepted or Pending Name of agency: PENDING [facility] - call ringing and then not going through [facility] Accepted but cannot open for SOC until 01/18 [facility] Referrals sent to: (names of agencies) Declined: [facility] - [facility] [place] - [facility] - [facility] [place] - [facility] [place] - [facility] - [facility] - staffing Please be aware [facility] agencies have up to 24hours to respond. Many [facility] agencies closed on weekends, may take until Thursday to receive responses. [facility] created for the following services: yes - SN/PT/OT Verify the demographics (residential address) [address] [place] [address] What is the primary number to reach you? [phone] Who is your family physician/primary care physician? Stephany Pelayo PA-C [phone] Following physician will be: (list first name/last [...] Dong MD - 01/13/2024 9:07 AM EDT [facility] [place] Assessment and Plan Addie Jean Baptiste is a 48 y.o. female patient of Stephany Pelayo PA-C with history of T2DM, HTN, bipolar disorder, and chronic back pain presented to [facility] on 01/12/2024 with left toe [...] tablet (1,000 mcg total) by mouth daily Reasons:[facility]. Dexcom G6 Filler Mixer Misc Use as directed for continuous glucose [...] not been spiked, are well within the college professor expiration date and have been stored at room temperature (<28 days). Continue with insulin regimen as written. Please call pharmacy with any questions. Pharmacist: Yolie Knott RPh,PharmLauren Date: 01/12/2024 Contact Information: [phone] documented in this [id number] Hospital course Narrative* Harshad Rizzo MD - 01/18/2024 11:00 AM EDT Images from the original note were not included. [facility] [place] Addie Jean Baptiste Admitted: 01/12/2024 Discharge Date: 01/18/24 PCP Handoff Recommended Outpatient Testing None Results Pending At Discharge None Clinical Summary Addie Jean Baptiste is a 48 y.o. female patient of Stephany Pelayo PA-C with history of T2DM, HTN, bipolar disorder, and chronic back pain presented to [facility] on 01/12/2024 with left toe [...] (1,000 mcg total) by mouth daily Reasons: [facility]. Quantity: 90 tablet Dexcom G6 Filler Mixer Mis Generic drug: blood-glucose meter,continuous Use as [...] day thereafter . Quantity: 30 tablet lancets [facility] 1 Lancet by Miscellaneous route 3 (three) [...] Follow Up: Stephany Pelayo PA-C [address] [facility] [address] [facility] [address] Follow up [facility] Address: [facility] [address] Servicing Counties: [facility] [phone] Shameka Castillo, DPJoel [address] [facility] [address] [facility] [address] Schedule an appointment as soon [...] on 01/18/24, 11:00 AM documented in this [id number] Hospital Discharge instructions * Discharge Instructions* Pippa Quiles RN - 01/18/2024 10:12 AM EDT * Discharge Instr - Care Coordination* Haven Pope RN - 01/13/2024 2:31 PM EDT [address] [address] Call [phone] ext. [phone] for more information -Summer Reading Program provides an individualized reading program during the summer months. -The [facility] Rx Program is a unique collaborative program in [facility]. The program assists [place] residents to obtain prescriptions in an affordable manner for immediate and ongoing needs. -The Volunteer Income Tax Assistance (DARÍO) is a free tax preparation service for low to moderate-income individuals and families. Federal and State tax returns can be completed and electronically filed. -The Emergency Food and Jail Program (EFSP) is funded by the Department of [place] [employer] to assist with emergency food and senior care programs. Further information can be obtained by -The Rapid Rehousing and Homeless Prevention Programs are here to help those struggling with homelessness or who are in danger of becoming homeless. -The Payee Program assists individuals with managing their Social Security, [employer] Care [employer], orVA benefits. This program provides free payee services to individuals. Please note, we do not take on guardianship of the individual. -The Emergency Senior Funding is a melly from the [facility] on Aging to assist those 60and over with needs that are not met by other services in [place]. The funds are meant to help with [...] Caregiving: Foot and Toenail Care: General Info (Qatari) * Chronic Wound: Healing: General Info (Qatari) documented in this [id number] [facility] 01-17-2024 [facility]08-24-2024 Consult note* Mary Lou Castillo, BEATRIZ - 01/16/2024 10:55 AM EDTAssociated Order(s): IP CONSULT TO NEPHROLOGY NEPHROLOGY CONSULTATION [facility] Patient Name: Addie Jean Baptiste MR #: [id number] : 1975 Requesting physician: Hospitalist Reason for [...] II/IIIa: Pt dos not follow with a endodontics dentist in the OP setting. Risk factors for [...] bipolar disorder, back pain who presented to [facility] with left toe wound. Per [...] tablet (1,000 mcg total) by mouth daily Reasons:[facility]. Dexcom G6 Filler Mixer Misc Use as directed for continuous glucose [...] I have reviewed Progress Notes in the [facility] EHR and [facility]. [x] I have interpreted/reviewed lab tests and radiography data in the [facility] EHR. [x] I have discussed the case with the primary service. [x] I have ordered appropriate tests/labs Comments: Thank you for allowing us to participate in the care of this patient. We will continue to follow. Please call if questions or concerns arise. Potential limitations of the note: Parts of this note were created by dictation via voice recognition software (Group Therapy Records). The completed note was reviewed for accuracy. [...] 4:07 PM EDT I personally performed a mzbq-gm-[id number] encounter and discussed in detail with the [...] created by dictation via voice recognition software (Group Therapy Records). The completed note was reviewed for accuracy. However, there may be subtle errors that were not found during the review. If such errors are discovered, or if there are any questions or concerns regarding the recommendations/plan of care, please contact the author of the note prior to undertaking the recommendations/plan of care. [id number] Consult note* Mary Lou Castillo, CORRECTIONAL FACILITY PSYCHIATRIST - 01/16/2024 10:55 AM EDTAssociated Order(s): IP CONSULT TO NEPHROLOGY NEPHROLOGY CONSULTATION [facility] Patient Name: Addie Jean Baptiste MR #: [id number] : 1975 Requesting physician: Hospitalist Reason for [...] II/IIIa: Pt dos not follow with a endodontics dentist in the OP setting. Risk factors for [...] bipolar disorder, back pain who presented to [facility] with left toe wound. Per [...] tablet (1,000 mcg total) by mouth daily Reasons:[facility]. Dexcom G6 Filler Mixer Misc Use as directed for continuous glucose [...] I have reviewed Progress Notes in the [facility] EHR and CareEverywhere. [x] I have interpreted/reviewed lab tests and radiography data in the [facility] EHR. [x] I have discussed the case with the primary service. [x] I have ordered appropriate tests/labs Comments: Thank you for allowing us to participate in the care of this patient. We will continue to follow. Please call if questions or concerns arise. Potential limitations of the note: Parts of this note were created by dictation via voice recognition software (Group Therapy Records). The completed note was reviewed for accuracy. [...] 4:07 PM EDT I personally performed a yqet-du-tuyu encounter and discussed in detail with the [...] created by dictation via voice recognition software (Group Therapy Records). The completed note was reviewed for accuracy. [...] Assessment Limitations Including: Pain, Mechanical Barriers Are plant technician Therapy Services Needed After Discharge: Yes Intensity of plant technician Therapy: 2-3 days per week Anticipated Duration of plant technician Therapy: Duration 10 - 30 days [...] Independent Standing Balance - Static: Minimal assist Vermin Exterminator - Standing Static: BUE Standing Balance - Dynamic: Minimal assist, 2 person Vermin Exterminator - Standing Dynamic: same paid search manager used for static standing tasks Bed Mobility Supine to Sit: (NT- Patient was up in chair before and After PT eval) Transfers Sit to Stand: Contact guard assist Bed to Chair: Contact guard assist Vermin Exterminator: BUE (Patient uses cane, but reports that [...] Function Receives Help From: Family Level of [place] - Transfers/Ambulation/Mobility: Independent with functional transfers, Independent with household ambulation Level of [place] - ADLs: Needs assistance Level of [place] - Homemaking: Independent Past Medical History: Diagnosis [...] motivation. The patient's home setup is a hospital coder, family / caregiver support is a hospital coder for return to prior level of function. The patient's education level is a hospital coder, compliance is a hospital coder to return to prior level of function. [...] assist Supine to Sit: Contact guard assist Vermin Exterminator: bedrails Functional Transfers Sit to Stand: Contact guard assist Bed to Chair Transfers: Contact guard assist Stand Pivot Transfers: Contact guard assist Vermin Exterminator: (gait belt, shoe, sock) Additional Assessment Details [...] Function Receives Help From: Family Level of [place] - Transfers/Ambulation/Mobility: Independent with functional transfers Level of [place] - ADLs: Needs assistance Level of [place] - Homemaking: Independent Past Medical History: Diagnosis Date Anxiety Bipolar 1 disorder (HCC) Bipolar disorder ([facility]) Chronic back pain Coronary artery disease Depression Diabetes mellitus ([facility]) Hypertension MRSA (methicillin resistant Staphylococcus aureus) [...] 01/13/24 2:37 PM - Liaison received a [facility] consult for [facility] needs. Patient's agency choice is no preference (would prefer not [place]) Barriers to finding accepting [facility] agency: pt's home location (not many [facility] agencies in area), insurance not widely accepted [facility] agency: Accepted or Pending Name of agency: PENDING [facility] Referrals sent to: (names of agencies) Declined: [facility] [place] Please be aware [facility] agencies have up to 24hours to respond. Many [facility] agencies closed on weekends, may take until Thursday to receive responses. [facility] created for the following services: yes - SN/PT/OT Verify the demographics (residential address) [address] [place] [address] What is the primary number to reach you? [phone] Who is your family physician/primary care physician? Stephany Pelayo PA-C [phone] Following physician will be: (list first name/last name) Do you have a caregiver and/or teachable caregiver (list relationship, name & phone #)? lives with family Estimated Discharge Date (KUNAL): 01/14 If discharge needs change, please reach out to Hub Liaison assigned on treatment team as hub is not notified of additional consults to [facility] once team is following. Thank you. * [...] discharge needs. Pt lives with her sonand [id number], they provide support. She states that she [...] agency but does not wish to have [facility]. Referral to Hub entered. Plan A: [...] YEAR OLD female WAS ADM[facility] WITH Chief Complaint Patient presents [...] tablet 30 mg 30 mg Oral Q12H [facility] Mk Leigh MD 30 mg at 01/12/24 2218 chlorthalidone (HYGROTON) tablet 25 mg 25 mg Oral Daily Mk Leigh MD citalopram (CELEXA) tablet 20 mg 20 mg Oral Daily Mk Leigh MD divalproex (DEPAKOTE) delayed release (DR) tablet 500 mg 500 mg Oral Q12H [facility] Mk Leigh MD hydrOXYzine (ATARAX) [...] 5 mL 5 mL Intravenous Q8H SAMEER Enirque Lainez PA-C And sodium chloride 0.9% (NS) [...] tablet (1,000 mcg total) by mouth daily Reasons:[facility]. 90 tablet 1 Dexcom G6 Filler Mixer Mis Use as directed for continuous glucose [...] 0 Shameka Brown DPM documented in this [id number] [facility] 01-15-2024 Note* Plan of Care - Lauryn [...] Absence of physical injury Outcome: Partially Met [id number] Miscellaneous Notes* Plan of Care - Lauryn [...] functioning Outcome: Partially Met documented in this [id number] [facility] 01-14-2024 [facility]08-22-2024 [facility] 08-22-2024 Consult note* Jos Soto, PT - 01/14/2024 11:27 AM EDT Physical Therapy PHYSICAL THERAPY EVALUATION Skilled Therapy Needs After Discharge Anticipate Resolution of Current Assessment Limitations Including: Pain, Mechanical Barriers Are plant technician Therapy Services Needed After Discharge: Yes Intensity of plant technician Therapy: 2-3 days per week Anticipated Duration of plant technician Therapy: Duration 10 - 30 days [...] Independent Standing Balance - Static: Minimal assist Vermin Exterminator - Standing Static: BUE Standing Balance - Dynamic: Minimal assist, 2 person Vermin Exterminator - Standing Dynamic: same paid search manager used for static standing tasks Bed Mobility Supine to Sit: (NT- Patient was up in chair before and After PT eval) Transfers Sit to Stand: Contact guard assist Bed to Chair: Contact guard assist Vermin Exterminator: BUE (Patient uses cane, but reports that [...] Function Receives Help From: Family Level of [place] - Transfers/Ambulation/Mobility: Independent with functional transfers, Independent with household ambulation Level of [place] - ADLs: Needs assistance Level of [place] - Homemaking: Independent Past Medical History: Diagnosis [...] hospital or completion of Physical Therapy Plan. [id number] Consult note* Shawna Montoya OT - 01/14/2024 [...] motivation. The patient's home setup is a hospital coder, family / caregiver support is a hospital coder for return to prior level of function. The patient's education level is a hospital coder, compliance is a hospital coder to return to prior level of function. [...] assist Supine to Sit: Contact guard assist Vermin Exterminator: bedrails Functional Transfers Sit to Stand: Contact guard assist Bed to Chair Transfers: Contact guard assist Stand Pivot Transfers: Contact guard assist Vermin Exterminator: (gait belt, shoe, sock) Additional Assessment Details [...] Function Receives Help From: Family Level of [place] - Transfers/Ambulation/Mobility: Independent with functional transfers Level of [place] - ADLs: Needs assistance Level of [place] - Homemaking: Independent Past Medical History: Diagnosis Date Anxiety Bipolar 1 disorder (HCC) Bipolar disorder (HCC) Chronic back pain Coronary artery disease Depression Diabetes mellitus (HCC) Hypertension MRSA (methicillin resistant Staphylococcus aureus) Pacemaker Seizures (HCC) Stroke ([facility]) Past Surgical History: Procedure Laterality Date CHOLECYSTECTOMY [...] completion of Occupational Therapy Plan of Care. [id number] Note* ED Attestation Note - Jacoby Dooley MD - 01/13/2024 11:56 PM EDT I performed a substantive part of the MDM during the patient's E/M visit. I personally made or approved the documented management plan and acknowledge its risk of complications Management/test interpretation discussed with midlevel provider. [facility] Work Phone: 1(452) 152-274508-21-2024 Consult note* Cris Cast RN - 01/13/2024 2:37 PM EDTAssociated Order(s): IP CONSULT TO FORMERLY [facility] [facility] 01/13/24 2:37 PM - Liaison received a Home Health Hub consult for [facility] needs. Patient's agency choice is no preference (would prefer not [facility]) Barriers to finding accepting [facility] agency: pt's home location (not many [facility] agencies in area), insurance not widely accepted HH agency: Accepted or Pending Name of agency: PENDING [facility] Matters Referrals sent to: (names of agencies) Declined: [facility] [place] [facility] [place] [facility] Please be aware [facility] agencies have up to 24hours to respond. Many [facility] agencies closed on weekends, may take until Thursday to receive responses. [facility] created for the following services: yes - SN/PT/OT Verify the demographics (residential address) [address] [place] [address] What is the primary number to reach you? [phone] Who is your family physician/primary care physician? Stephany Pelayo PA-C [phone] Following physician will be: (list first name/last name) Do you have a caregiver and/or teachable caregiver (list relationship, name & phone #)? lives with family Estimated Discharge Date (KUNAL): 01/14 If discharge needs change, please reach out to Hub Liaison assigned on treatment team as hub is not notified of additional consults to [facility] once team is following. Thank you. [id number] Consult note* Haven Pope RN - 01/13/2024 [...] discharge needs. Pt lives with her sonand idmpiujx-yu-zho, they provide support. She states that she [...] screening addressed. Pt would like to have [facility] at discharge, she states no preference of an agency but does not wish to have [facility]. Referral to Hub entered. Plan A: Pt will return home with her family, home health services to be arranged. Plan B: Will follow pt for any additional needs. Assessment and Background Information: Living Arrangements: Family members Support Systems: Family members Assistance Needed: n/a Type of Residence: Private residence Prior to Admission Home Care Services: No Current Home Equipment: (Electric scooter) [id number] Note* [facility] - Jos Soto PT - 01/13/2024 12:16 PM EDT PHYSICAL THERAPY VISIT VARIANCE NOTE Attempted to see patient at this time, but unable secondary to: Patient Unavailable (comment) (currently BHAVNA for CAT scan). Will follow up as appropriate. [id number] Note* Quick Note - Chaim Lamb TECHNOLOGIST - 01/13/2024 9:59 AM EDT Patient has an ICD that is MRI compatible but she does not follow up with anyone for her device check. We do not have anyone to send MRI cardiology order form. [id number] Note* Plan of Care - Salena Ghotra [...] level of psychosocial functioning Outcome: Partially Met [id number] [facility]08-21-2024 Consult note* Lucina Henry RN - 01/13/2024 [...] wound bed and gema wound is red. [id number] Consult note* Shameka Castillo DPM - 01/13/2024 [...] YEAR OLD female WAS ADMITTED TO [facility] 01/12/[facility]24 WITH Chief Complaint Patient presents [...] tablet 30 mg 30 mg Oral Q12H [facility] Mk Leigh MD 30 mg at 01/12/242217 chlorthalidone (HYGROTON) tablet 25 mg 25 mg Oral Daily Mk Leigh MD citalopram (CELEXA) tablet 20 mg 20 mg Oral Daily Mk Leigh MD divalproex (DEPAKOTE) delayed release (DR) tablet 500 mg 500 mg Oral Q12H [facility] Mk Leigh MD hydrOXYzine (ATARAX) [...] Nightly Mk Leigh MD 800 mg at 01/12/242217 senna (SENOKOT) [...] tablet (1,000 mcg total) by mouth daily Reasons:[facility]. 90 tablet 1 Dexcom G6 Filler Mixer Mis Use as directed for continuous glucose [...] 12/24/23. 30 tablet 0 Shameka Castillo DPM [id number] History and physical note* Enrique Lainez PA-C - 01/12/2024 5:19 PM EDT [facility] [place] [place] [facility] Patient Name: Addie Jean Baptiste : 1975 MR #: [id number] Admit Date: 01/12/2024 Physicians: Stephany Pelayo PA-C (Family); No ref. provider found (Referring) Addie Jean Baptiste is a 48 y.o. female patient of Stephany Pelayo PA-C with history of T2DM, HTN, bipolar disorder, and chronic back pain presented to [facility] on 01/12/2024 with left toe [...] disorder, and chronic back pain presented to [facility] on 01/12/2024 with left toe [...] 2, diabetic peripheral neuropathy Seizure disorder Obesity [id number] History and physical note* Enrqiue Lainez PA-C - 01/12/2024 5:19 PM EDT [facility] [place] [facility] Patient Name: Addie Jean Baptiste : 1975 MR #: [id number] Admit Date: 01/12/2024 Physicians: Stephany Pelayo PA-C (Family); No ref. provider found (Referring) Addie Jean Baptiste is a 48 y.o. female patient of Stephany Pelayo PA-C with history of T2DM, HTN, bipolar disorder, and chronic back pain presented to [facility] on 01/12/2024 with left toe [...] disorder, and chronic back pain presented to [facility] on 01/12/2024 with left toe [...] neuropathy Seizure disorder Obesity documented in this [id number] Emergency department Note* Ace Rico - 01/12/2024 3:44 PM EDT Hourly rounding completed. Patient updated on plan on care. Comfort measures offered, patient givenwater and a warm blanket. No other needs at this time. [id number] Emergency department Note* Ace Rico - 01/12/2024 3:44 PM EDT Hourly rounding completed. Patient updated on plan on care. Comfort measures offered, patient givenwater and a warm blanket. No other needs at this time. * Matheus Chavira PA-C - 01/12/2024 3:24 PM EDT ED PROVIDER NOTE [facility] EMERGENCY DEPARTMENT NAME: Addie Jean Baptiste AGE: 48 y.o. : 1975 VISIT DATE: 01/12/2024 CSN: [id number] PCP: Stephany Pelayo PA-C Clinical Impression: 1. [...] fluidsand MRI. I discussed this case with [facility] and [...] precipitated this pain. History provided by: Patient electro winning operator used: No Wound Check Past Medical History: [...] tablet (1,000 mcg total) by mouth daily Reasons:[facility]. Dexcom G6 Filler Mixer Misc Use as directed for continuous glucose [...] 2:31 PM EDT Pt was brought in [facility]. Pt was seeing primary doc and wasreferred to our ED for a Lt great toe inf. Pt had an ongoing toe inf-- last Thursday skin/toe nail came off tip of toe. No drainage/odor notedat this time. * Saira Villatoro RN - 01/12/2024 2:31 PM EDT Bed: 02 Expected date: Expected time: Means of arrival: Comments: 28: 48F toe infection documented in this [id number] Physician Emergency department Note* Matheus Chavira PA-C - 01/12/2024 3:24 PM EDT ED PROVIDER NOTE [facility] EMERGENCY DEPARTMENT NAME: Addie Organ AGE: 48 y.o. : 1975 VISIT DATE: 01/12/2024 CSN: [id number] PCP: Stephany Pelayo PA-C Clinical Impression: 1. [...] fluidsand MRI. I discussed this case with [facility] and [...] precipitated this pain. History provided by: Patient electro winning operator used: No Wound Check Past Medical History: [...] tablet (1,000 mcg total) by mouth daily Reasons:[facility]. Dexcom G6 Filler Mixer Misc Use as directed for continuous glucose [...] . BHARAT Austin Zachary Joel, PA-C 01/12/241701 [id number] History of Present illness Narrative* Stephany Pelayo PA-C - 01/12/2024 2:55 PM EDT [facility] INTERNAL MEDICINE [facility] [place] [address] Patient: Addie Jean Baptiste is a 48 [...] tablet (1,000 mcg total) by mouth daily Reasons:[facility]. 90 tablet 1 Dexcom G6 Filler Mixer Mis Use as directed for continuous glucose [...] (HCC) Note: This dictation was generated using [employer] voice recognition software. Please excuse any grammatical [...] improve. Stephany Pelayo PA-C documented in this [id number] Emergency department Note* Karon Desai RN - 01/12/2024 2:31 PM EDT Pt was brought in [facility]. Pt was seeing primary doc and wasreferred to our ED for a Lt great toe inf. Pt had an ongoing toe inf-- last Thursday skin/toe nail came off tip of toe. No drainage/odor notedat this time. [id number] Emergency department Note* Saira Villatoro RN - 01/12/2024 2:31 PM EDT Bed: 02 Expected date: Expected time: Means of arrival: Comments: 28: 48F toe infection [id number] Telephone encounter Note* Telephone Encounter - Moo Louise RN - 01/11/2024 3:04 PM EDT Last UDS 12/08/23 Last OV 12/08/23 Next OV 02/02/24 [id number] Miscellaneous Notes* Telephone Encounter - Moo Louise RN - 01/11/2024 3:04 PM EDT Last UDS 12/08/23 Last OV 12/08/23 Next OV 02/02/24 documented in this [id number] Telephone encounter Note* Telephone Encounter - Moo Louise RN - 12/21/2023 1:36 PM EDT Pt states Percocet is helping a lot with pain. Requesting 30 day supply. [id number] Miscellaneous Notes* Telephone Encounter - Moo Louise RN - 12/21/2023 1:36 PM EDT Pt states Percocet is helping a lot with pain. Requesting 30 day supply. documented in this [id number] History of Present illness Narrative* Rafaela Castillo MA - 12/14/2023 8:24 AM EDT Ne supplies order faxed to [employer]. Confirmation received. documented in this [id number] Telephone encounter Note* Telephone Encounter - Moo Pressley MA - 12/08/2023 4:35 PM EDT Refill DM medications. Dexcom downloaded for review and insulin RX needs completed [id number] Miscellaneous Notes* Telephone Encounter - Moo Pressley MA - 12/08/2023 4:35 PM EDT Refill DM medications. Dexcom downloaded for review and insulin RX needs completed documented in this [id number] Telephone encounter Note* Telephone Encounter - Moo Pressley MA - 12/08/2023 4:02 PM EDT duplicate [id number] Miscellaneous Notes* Telephone Encounter - Moo Pressley MA - 12/08/2023 4:02 PM EDT duplicate documented in this [id number] Instructions* Patient Instructions* Jim Velez DO - [...] p.o. nightly only . documented in this [id number] History of Present illness Narrative* Jim VelezDO - 12/08/2023 2:00 PM EDT [facility] Interventional Pain Management Office Note Patient Name: Addie Jean Baptiste Referring Physician: Stephany Pelayo PA-C Date of : 1975 PCP: Stephany Pelayo PA-C Date of Service: 12/09/23 This is a 48 y.o. female who presents to [facility] for an initial consultation. After [...] tablet (1,000 mcg total) by mouth daily Reasons:[facility]. Dexcom G6 Filler Mixer Misc Use as directed for continuous glucose [...] OPIOIDS Jim Velez D.O. Interventional Pain Management [facility] documented in this [id number] Instructions* Patient Instructions* Sahara Sanchez MD - 12/02/2023 3:18 PM EDT Thank you for choosing the [facility] Endocrinology. Please get labs on the [...] if you are interested in seeing a belt builder helper/dietitian. Please call our office at [phone] or send a EndPlay message if you have any questions or [...] meal and bedtime CGM documented in this [id number] History of Present illness Narrative* Sahara Sanchez MD - 12/02/2023 2:01 PM EDT Images from the original note were not included. [facility] [address] [place] [address] Addie Jean Baptiste is a 48 y.o. female being seen for Diabetes Mellitus PCP: Stephany Pelayo PA-C Referring Physician: Stephany Pelayo PA-C HPI: She is here for consultation regarding management of type 1 diabetes that was diagnosed at 23 yearsof age. Started on insulin in 2004, switch to OmniPod several years ago. Currently on OmniPod 5. She has relocated from [place] [facility] to [place] in 2022, was following up with endocrinology while in [place]. She is in a wheelchair for today's visit, has difficulty walking due to diabetic neuropathy. Current Diabetic Regimen: Omnipod 5 with Zeinab 2 --unable to download OmniPod 5 as she did not bring her PDM, she is going tobring it on Thursday. 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 90 tablet 1 ergocalciferol (Vitamin D2) [...] needed . 90 tablet 0 Dexcom G6 Filler Mixer Misc Use as directed for continuous glucose [...] PT pulses, and absent sensations , callus SKATING RINK ICE MAKER: Reveals no tremors in outstretched upper extremities. [...] polyneuropathy, with long-term current use of insulin ([facility]) Ambulatory referral to Endocrinology Microalbumin, Urine, Random [...] MD Note: This dictation was generated using [employer] voice recognition software. Please excuse any grammatical or spelling errors that may have occurred using the system. documented in this [id number] Telephone encounter Note* Telephone Encounter - Louise Waller LPN - 11/12/2023 1:02 PM EDT Patient also requested alcohol pads (not on med sheet, or previously discontinued) Citalopram is by another provider and was prescribed 5/15 for 30 days with 2 refills. [id number] Miscellaneous Notes* Telephone Encounter - Louise Waller [...] preferred pharmacy listed below? Yes Preferred pharmacies: [facility] [address] [place], [place] [address] Pt Call Back Number Work Phone Not on file. Patient call back message sent to the primary care clinical pool. Jatinder Green documented in this [id number] Telephone encounter Note* Telephone Encounter - Louise [...] preferred pharmacy listed below? Yes Preferred pharmacies: [address] [address] Pt Call Back Number Work Phone Not on file. Patient call back message sent to the primary care clinical pool. Jatinder Green [id number] NoteProcedure date: 11/09/2023. Ultrasound findings were Negative for a mass, a retinal detachment Notes No RD or [id number] History of Present illness Narrative* Jackelyn Yuen [...] time was spent with patient performing the microbiology quality control technician work of this visit. Referring Physician: [...] 3:20 PM. Referring Doctor: Jessica Puentes MD [address] [place] [address] Medications: Current Outpatient Medications Medication Sig Albuterol [...] taking: Reported on 11/09/2023) Ergocalciferol 1.25 MG (03030 UT) capsule Take 1 capsule by mouth [...] PLACEMENT 01/29/2012 Surgeon: Ashish Long MD,PhD; Location: [facility] IMPLANTABLE LOOP RECORDER 10/12/2010 [facility] [...] Resource Strain: Medium Risk (05/11/2023) Received from [facility] Overall Financial Resource Strain (CARDIA) Difficulty of Paying Living Expenses: Somewhat hard Food Insecurity: Food Insecurity Present (05/11/2023) Received from [facility] Hunger Vital Sign Worried About Running Out of Food in the Last Year: Sometimes true Ran Out of Food in the Last Year: Sometimes true Transportation Needs: No Transportation Needs (05/11/2023) Received from [facility] PRAPARE - Transportation Lack of Transportation (Medical): No Lack of Transportation (Non-Medical): No Received from [facility] [place] Safety & Environment Housing Stability: High Risk (05/11/2023) Received from [facility] Housing Stability Vital Sign Unable to [...] -hx of PPV/PRP OS [facility] 09/2022 -dense VH likely contributing to [...] but patient would like to present to [facility] which is closer to the patient. [...] with general retina [facility] Miscellaneous Notes* Telephone Encounter - Magnolia Chavira LPN - 10/30/2023 8:50 AM EDT Patient called and stated trazodone was discussed at last appt. Patient has switched pharmacies [facility] Last note states: Take trazodone 50mg;1-2 tabs as needed for insomnia. Medication pended. Called patient to notify, no answer. No VM. documented in this [id number] Telephone encounter Note* Telephone Encounter - Magnolia Chavira LPN - 10/30/2023 8:50 AM EDT Patient called and stated trazodone was discussed at last appt. Patient has switched pharmacies [facility] Last note states: Take trazodone 50mg;1-2 tabs as needed for insomnia. Medication pended. Called patient to notify, no answer. No VM. [id number] History of Present illness Narrative* Magnolia Chavira LPN - 10/07/2023 4:12 PM EDT Requested records from [facility]. RENETTA singed. Faxed. Copy sent to scan. documented in this [id number] Instructions* Patient Instructions* Zoë Garcia MD - [...] anxiety. --Schedule for Individual therapy sessions at [facility]. --Will request records from [facility]. --Follow up with PCP as scheduled. [...] days for refills. E) Please call the [facility] Services if needed, for questions, or other psychiatric concerns. F) Call 911 or present to nearest emergency room if you are feeling unsafe or suicidal. Additionally, individuals can call the Suicide Hotline locally at or nationally at . documented in this [id number] History of Present illness Narrative* Zoë Garcia [...] anxiety. --Schedule for Individual therapy sessions at [facility]. --Will request records from [facility]. --Follow up with PCP as scheduled. [...] last seen in July 2023. Lives in [place] with daughter in law and son. Interval [...] (1,000 mcg total) by mouth daily Reasons: [facility]., Disp: 90 tablet, Rfl: 1 ergocalciferol (Vitamin D2) 1,250 mcg (50,000 unit) capsule, Take 1 (one) capsule (50,000 Units total) by mouth once a week ., Disp: 12 capsule, Rfl: 1 FreeStyle Zeinab 2 [place] Misc, Inject 1 each under the skin [...] extrapolated by contextual derivation. documented in this [id number] Telephone encounter Note* Telephone Encounter - Rafaela Castillo MA - 10/06/2023 1:23 PM EDT Pt requesting refill as her appt was rescheduled into next week from tomorrow. [id number] Miscellaneous Notes* Telephone Encounter - Rafaela Castillo MA - 10/06/2023 1:23 PM EDT Pt requesting refill as her appt was rescheduled into next week from tomorrow. documented in this [id number] Instructions* Patient Instructions* Virgen Campos MD - 09/16/2023 1:44 PM EDT Keep a blood pressure log several times a week Goal is <140/90 or ideally <130/80 documented in this [id number] History of Present illness Narrative* Virgen Campos MD - 09/16/2023 1:19 PM EDT Patient Name: Addie Jean Baptiste MR #: [id number] : 1975 Date of evaluation: 09/16/2023 Referring [...] CT lumbar spine and clinical exam at [facility] at that time Per review of [...] CT lumbar spine and clinical exam at [facility] at that time Per review of physician [...] patient was evaluated by neurology at [facility] on 01/13/23 for seizures. Patient hasa history of seizures. Reports having seizures weekly; her last seizure was last week. Reports being compliant with her Keppra. Also, per chart review she was evaluated at [facility] 03/06/22 for right side weakness and [...] one. Patient lives with her son and jamzndlc-hj-mwy. She does not drive. Reports that she does not ambulate well due to unsteadiness due to several chronic conditions. Reports that her son and flgnjnwg-tp-kli care for her most of the time. She reports that is [facility] Reports that she manages her own medications [...] medical history of Anxiety, Bipolar 1 disorder ([facility]), Bipolar disorder ([facility]), Chronic back pain, Coronary artery disease, Depression, Diabetes mellitus ([facility]), Hypertension, MRSA (methicillin resistant Staphylococcus aureus), Pacemaker, Seizures ([facility]), and Stroke ([facility]). Social History She reports that she [...] tablet (1,000 mcg total) by mouth daily Reasons:[facility]. 90 tablet 1 ergocalciferol (Vitamin D2) 1,250 mcg (50,000 unit) capsule Take 1 (one) capsule (50,000 Units total) by mouth once a week . 12 capsule 1 FreeStyle Zeinab 2 [place] Misc Inject 1 each under the skin [...] Final Result by Floyd Schafer MD (11/07/2023 0076) 1. No unenhanced evidence of an acute [...] Final Result by Jermaine Peralta MD (07/08/2023 3148) 1. No hydronephrosis. No hydroureter. No nephroureterolithiasis. [...] Calculation (Bezet) 06/18/2023 452 ms Final P [place] 06/18/2023 53 degrees Final R [place] 06/18/2023 10 degrees Final T [place] 06/18/2023 34 degrees Final Sodium 07/31/2023 137 [...] Clarity, Urine 07/31/2023 Clear Clear Final Specific [place] 07/31/2023 1.013 1.005 - 1.025 Final pH, [...] Clarity, Urine 07/28/2023 Clear Clear Final Specific [place] 07/28/2023 1.021 1.005 - 1.025 Final pH, [...] Clarity, Urine 07/12/2023 Clear Clear Final Specific [place] 07/12/2023 1.013 1.005 - 1.025 Final pH, [...] Calculation (Bezet) 07/12/2023 435 ms Final P [place] 07/12/2023 58 degrees Final R [place] 07/12/2023 12 degrees Final T [place] 07/12/2023 43 degrees Final Troponin T 07/12/2023 [...] Urine 07/08/2023 Hazy (A) Clear Final Specific [place] 07/08/2023 1.018 1.005 - 1.025 Final pH, [...] Clarity, Urine 06/18/2023 Clear Clear Final Specific [place] 06/18/2023 1.018 1.005 - 1.025 Final pH, [...] Calculation (Bezet) 06/03/2023 423 ms Final P [place] 06/03/2023 58 degrees Final R [place] 06/03/2023 14 degrees Final T [place] 06/03/2023 35 degrees Final Sodium 06/03/2023 135 [...] Calculation (Bezet) 05/10/2023 427 ms Final P [place] 05/10/2023 54 degrees Final T [place] 05/10/2023 30 degrees Final Extra Tube 05/10/2023 [...] Clarity, Urine 05/11/2023 Clear Clear Final Specific [place] 05/11/2023 1.017 1.005 - 1.025 Final pH, [...] Urine 04/28/2023 Hazy (A) Clear Final Specific [place] 04/28/2023 1.022 1.005 - 1.025 Final pH, [...] Calculation (Bezet) 04/26/2023 443 ms Final P [place] 04/26/2023 62 degrees Final R [place] 04/26/2023 76 degrees Final T [place] 04/26/2023 -7 degrees Final Sodium 04/26/2023 139 [...] that are not included. documented in this [id number] Telephone encounter Note* Telephone Encounter - Laura Child MA - 09/16/2023 12:58 PM EDT Attempted to contact patient to notify of medication adjustments. [id number] Miscellaneous Notes* Telephone Encounter - Laura Child [...] Not sleeping well. Nausea from anxiety. [facility] [address] documented in this [id number] Telephone encounter Note* Telephone Encounter - Zoë Garcia MD - 09/15/2023 2:45 PM EDT Yes we can have her increase the dose of Celexa to 20mg daily and for sleep adjust her nortryptlline to 50mg nightly,but she needs to discuss with her pcp as well.We can give her zyprexa 5mg;half tabtwice a day as needed for anxiety/agitation. [id number] Telephone encounter Note* Telephone Encounter - Laura Child MA - 09/15/2023 2:22 PM EDT Patient called stating that she lost her mother last week and wants something to help with her nerves. Not sleeping well. Nausea from anxiety. [facility] [address] [id number] History of Present illness Narrative* Rafaela Castillo MA - 09/10/2023 11:19 AM EDT Hospital bed mattress order faxed to [facility]. Confirmation received. documented in this [id number] History of Present illness Narrative* Stephany Pelayo [...] G89.4 338.4 Ambulatory referral to Pain Medicine [facility] 2. Muscle spasms of both lower extremities M62.838 728.85 Ambulatory referral to Pain Medicine 3. Urinary incontinence, unspecified type R32 788.30 4. Chronic nonintractable headache, unspecified headache type R51.9 784.0 G89.29 5. Chronic obstructive pulmonary disease, unspecified COPD type (HCC) J44.9 496 Miscellaneous DME Equipment [facility] 6. Type 2 diabetes mellitus with diabetic polyneuropathy, with long-term current use of insulin ([facility]) E11.42 250.60 FreeStyle Zeinab 2 Sensor Kit Z79.4 357.2 Hemoglobin A1c V58.67 HM URINE MICROALBUMIN Ambulatory referral to Ophthalmology 7. Diabetic peripheral neuropathy ([facility]) E11.42 250.60 357.2 8. Diabetic ulcer of right foot associated with type 2 diabetes mellitus, unspecified part of foot,unspecified ulcer stage ([facility]) E11.621 250.80 L97.519 707.15 9. Hypothyroidism, unspecified type E03.9 244.9 10. Primary hypertension I10 401.9 lisinopriL (PRINIVIL,ZESTRIL) 30 MG tablet Basic Metabolic Panel 11. Hypercholesterolemia E78.00 272.0 12. S/P placement of cardiac pacemaker Z95.0 V45.01 13. Seizures ([facility]) R56.9 780.39 14. Bipolar 1 disorder ([facility]) F31.9 296.7 15. Gastroesophageal reflux disease, [...] tablet (1,000 mcg total) by mouth daily Reasons:[facility]. 90 tablet 1 ergocalciferol (Vitamin D2) 1,250 mcg (50,000 unit) capsule Take 1 (one) capsule (50,000 Units total) by mouth once a week . 12 capsule 1 FreeStyle Zeinab 2 [place] Misc Inject 1 each under the skin [...] normal. Behavior: Behavior normal. documented in this [id number] Hospital Discharge instructions * Discharge Instructions* MARY [...] sent through Care Everywhere. * Leg Pain (Qat[place]) [facility] Emergency department Note* MARY Wen - 08/26/2023 6:25 PM EDT ED RE-EVALUATION NOTE CURRENT PLAN & ASSESSMENT: Left leg pain. DIAGNOSTIC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 temperature (<28 days). Continue with insulin regimen as written. Please call pharmacy with any questions. Pharmacist: Dannielle Barrett Date: 02/18/2023 Contact Information: [phone] Electronically signed by Dannielle Barrett [facility],PharmD at 02/18/2023 4:13 PM EDT documented in this [id number] Consult note* Zayda Dorantes RN - 02/19/2023 9:00 AM EDT Attempted to meet with patient this am for Diabetes Education. Per primary nurse, the patient is not clinically appropriate at this time. She is drowsy and hard to arouse. Will check back at a later time. [id number] Note* Quick Note - Mk Leigh MD [...] hypotension primarilymedication induced, low suspicion for infection. [facility] Work Phone: [phone] Hospital Discharge instructions* Discharge Instr - Care Coordination* Jalyn Yanes LISW - 02/18/2023 3:30 PM EDT ADDITIONAL HOUSING INFORMATION FOR AFFORDABLE HOUSING OPTIONS: [facility] Mobile Home Nunes [facility] Apartpaul [facility] [address] [place] [address] [place] Maris [place] [address] [phone] 1-3 bedroom metro accepted [place] [address] Carriage Arms [address] [phone] [phone] Community View [address] [phone] [facility] [address] [facility] Apts [address] [place] [phone] 1-3bedroom subsidized housing [place] [address] [place] [address] [phone] [place] Lofts [address] [phone] [place] [address] [facility] [address] [facility] [phone] [place] [address] [phone] [place] [address] [facility] [phone] [place] [address] [phone] [facility] [address] [phone] [place] [address] [facility] [address] [phone] [facility] [phone] & 2 bedrooms metro accepted [place] [address] [facility] [address] [facility] [address] [phone] 1 & 2 bedrooms metro accepted Marroquin's [address] [phone] [employer] Properties [address] [phone] [facility] 2 [facility] [phone] [address] [phone] 1-3 bedroom metro accepted Fci L[place]ura [place] [address] [facility] [address] [phone] 1-3 bedroom metro accepted [place] [address] [place] Apts [address] [phone] [facility] correction [address] Well[address] [phone] [address] 120[address] [facility] [phone] 1-3 bedroom available [facility] [address] [phone] 1-3 bedroom metro accepted [address] [phone] [place] [address] [phone] [place] [phone] [facility] [address] [phone] Duplexs and Houses [address] [facility] [address] [phone] Johnny Wall [phone] [employer] [address] [phone] Karen Stauffer [phone] [facility] Properties [address] Zonia Maldonado [phone] [facility] Management Co [address] [address] [facility] [address] [phone] Maxim[facility]es[facility] [phone] [facility] Apts [address] [phone] Alpha and Crestline Properties [phone] [facility] [address] [facility] Edilberto [address] [phone] Nikos Thomas [phone] [place] [facility] Apaprtment [phone] Robert Duran [phone] METRO Edinson Unique [phone] [facility] Housing [address] [facility] 12 Gui Analilialeawood [phone] We Rent Velia (Chris Matamoros) [phone] Income Based Housing Zebulon Mello [email or web address] [facility] Apartments (Section 8) Bill Your [phone] [address] Apartments (Section 8) Sleeping Rooms [facility] (Section 8) Kiana Properties [phone] BrownStone Terece ( must be senior or disabled) Olds Sleeping Rooms [phone] Velia Towers (must be senior or disabled) Hernan Sleeping Rooms - [phone] Tony Turner ( must be senior or disabled) Caryn Mario - [phone] Maximino Portillo - [phone] [employer] Groups Websites to find Rentals https://www.Netshow.me.com/groups/692726882193393/ www.rent.[employer] https://www.Netshow.me.com/groups/116926111602047 www.apartments.[employer] https://www.Netshow.me.[employer]/groups/7120802661955064/ www.rentals.[employer] https://www.Netshow.me.[employer]/groups/349446780817961/ Makani Power/kkkxjg-plfues-fh/rentals/ [facility] FOOD ASSISTANCE [facility] [phone] By appointment only Thursday-Thursday between 10am and 3pm ([address]. Must provide photoID and proof of address) [facility] [phone] , Thu, Thu, Sat 10a to 12p. 3p to 5p. ([address] [facility]. Photo ID and proof of address required) [facility] [phone] 3rd Sat of each month, 10a to 12p ([address] [facility] [facility]. photo ID and proof of address required) Life (LINK) [phone] 4th Tues of each month. Call on Thursday between 10a and 2p to schedule ([address]) Chuy/German Community Pantry [phone] Thursday 2pm-6pm 1st Thursday Produce 2pm to 4pm [facility] [phone] ([address] [facility]. Call to inquire) [facility] [phone] Monthly giveaway, call for info ([address] [facility] Falls[facility]) Shining Light [facility] [phone] Wednesdays 830am to 10am bread giveaway only ([address]) Breaking Bread Food Pantry [phone] 3p to 5p ([address]. Photo ID and proof of address required) Logos [facility] [phone] call for info ([address] [facility] [facility]) Helping Hands Helping Others Food Pantry [phone] Mondays and Wed 4p to 7p, soup kitchen Tuesdays 530p to 6p ([address] [facility]. Photo ID and proof of address required) [facility] Food Pantry [phone] call for info ([address]) [facility] Commodity Supplemental Food Program Contact Fatimah at [phone] Food box distribution for income eligible [facility] seniors 60+ ([address] [place] Vel[address]) * Attachments The following attachments cannot be sent through Care Everywhere. * Chest Pain (Qatari) documented in this [id number] Consult note* Jalyn Yanes LISW - 02/18/2023 [...] are currently staying in a motel in [place]. Pt asking for help withhousing. SW asked [...] she is also wanting to get an Nurseryperson here in [place] as hers is still in [place]. Pt is agreeable to Waiver referral. SW also suggested looking into [employer] Sleeping rooms, or otheraffordable housing options. She did report she is able to make calls to places. Agreeable to housing help info on [employer]. SW faxed Waiver Referral. SW placed housing options on [facility] Community Resource Packet provided to pt. SW placed ambulatory referral to Endocrinology. Assessment and Background Information: Living Arrangements: Homeless Support Systems: Family members Assistance Needed: denies Type of Residence: (Hotel) Prior to Admission Home Care Services: No [id number] Note* Quick Note - Harshad Rizzo MD [...] echo Rest of management as per H&P [id number] Note* Plan of Care - Monique Grande [...] Goal: Absence of falls Outcome: Partially Met [id number] Physician Emergency department Note* Hayde Pickering, DO - 02/18/2023 12:25 AM EDTAssociated Order(s): ECG 12 Lead Images from the original note were not included. ED PROVIDER NOTE [facility] EMERGENCY DEPARTMENT NAME: Addie Organ AGE: 47 y.o. : 1975 VISIT DATE: 02/17/2023 CSN: [id number] PCP: System, Provider Not In Clinical Impression: [...] plan, .I reviewed the patient's case [place] [facility] [place] [...] src Pulse Resp SpO2 Height Weight 02/17/23 1216 (!) 151/109 -- -- 91 18 98 [...] Yellow Clarity, Urine Hazy (A) Clear Specific [place] 1.025 1.005 - 1.025 pH, Urine 5.0 [...] 2. Chronic and incidental findings as above. DEEPA/[facility] Workstation ID: [id number] CT Head Or [...] Ladan Gonzalez Karen Michelle, DO 02/18/23 0040 [id number] Emergency department Note* Hayde Pickering, - 02/18/2023 12:25 AM EDTAssociated Order(s): ECG 12 Lead Images from the original note were not included. ED PROVIDER NOTE [facility] EMERGENCY DEPARTMENT NAME: Addie Jean Baptiste AGE: 47 y.o. : 1975 VISIT DATE: 02/17/2023 CSN: [id number] PCP: System, Provider Not In Clinical Impression: [...] plan, .I reviewed the patient's case with [facility] [place] [...] Yellow Clarity, Urine Hazy (A) Clear Specific [place] 1.025 1.005 - 1.025 pH, Urine 5.0 [...] EDT Patient arrived [facility] via [facility] [...] arrival: Comments: 26- CP documented in this [id number] History and physical note* Ambrosio Butcher MD - 02/18/2023 12:21 AM EDT [facility] [place] [facility] Patient Name: Addie Jean Baptiste : 1975 MR #: [id number] Admit Date: 02/17/2023 Physicians: System, Provider Not In (Family); No ref. provider found (Referring) Addie Jean Baptiste is a 47 y.o. female patient of System, Provider Not In with history of diabetes, hypertension, hypothyroidism, COPD, and GERD, now presented to [facility] with chest pain. Chest pain [...] hypothyroidism, COPD, and GERD, now presented to [facility] with chest pain. Beginning around [...] normal coloration Psych: normal mood and affect [id number] History and physical note* Ambrosio Butcher MD - 02/18/2023 12:21 AM EDT [facility] [place] [place] [facility] Patient Name: Addie Jean Baptiste : 1975 MR #: [id number] Admit Date: 02/17/2023 Physicians: System, Provider Not In (Family); No ref. provider found (Referring) Addie Jean Baptiste is a 47 y.o. female patient of System, Provider Not In with history of diabetes, hypertension, hypothyroidism, COPD, and GERD, now presented to [facility] with chest pain. Chest pain [...] hypothyroidism, COPD, and GERD, now presented to [facility] with chest pain. Beginning around [...] normal mood and affect documented in this [id number] Emergency department Note* Eliana Khan RN - 02/17/2023 9:35 PM EDT Patient is complaining of chest pain all over, a headache, and right sided abdominal pain that radiates to her back. [id number] Emergency department Note* Eliana Khan RN - 02/17/2023 9:16 PM EDT Patient arrived from home via [facility] EMS report Patient has been complaining of some chest tightness and SOB since around 4pm. Patient indicated that she feels that her chest is tight and the room is spinning. Patient had normal vitals in route. Asprin and nitroglycerin given in route. See EMS report [id number] Emergency department Note* Meaghan Devlin RN - 02/17/2023 9:16 PM EDT Bed: 10 Expected date: Expected time: Means of arrival: Comments: 26- CP [id number] Instructions* Patient Instructions* Josué Christianson DO - [...] repeat 10 to 20 times. Developed by [employer]. Published by [employer]. 2009 [employer] and/or its affiliates. All Rights Reserved. documented in this [id number] History of Present illness Narrative* Josué Christianson DO - 02/09/2023 2:36 PM EDT CC: Knee pain HPI HISTORY: Addie Jean Baptiste who is a 47 y.o. female that presents for evaluation of a chief complaint: Chief Complaint Patient presents with Right Knee - Pain NEW PATIENT RT KNEE PAIN, fell 01/19/23 [facility] No notes on file It is [...] pick it up tomorrow at pharmacy - [facility] in [place] . 06/01/20 Manuel Cardona MD fluticasone-salmeterol (ADVAIR [...] normal Alignment: normal Other FractureNegative BMP Order: [id number] Status: Final result Visible to patient: No [...] mellitus with other specified complication, unspecified 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 exterminator insulin use (HCC) We a long discussion [...] (PRINIVIL,ZESTRIL) 40 MG tablet documented in this [id number] NoteEXAMINATION: XA L-SPINE MYELOGRAM LP 10/07/2022 03:42 [...] for the critical portions of the procedure.[facility] [place], Operated By [employer] [id number] Hospital Discharge instructions* Discharge Instructions* Nikko Kendrick [...] see your Primary Care Physician (or call [phone] if you do not have a PCP) for follow up in the next 5-7 days. TRANSPORTATION TO [facility] FOR AN APPOINTMENT: PLEASE CALL [phone]. Extremity Injury Instructions: Return to the ED [...] Care Everywhere. * Urinary Incontinence Discharge Instructions (Qatari) * Diabetic Neuropathy (Qatari) documented in this [id number] NotePOST-PROCEDURE NOTE Procedure: Myelogram Pre-operative Diagnosis: concern [...] portion of the procedure. Sonia Beach MD [facility] NotePre-Procedure Note HISTORY: Procedure: Myelogram Indication: cauda [...] Directives (Living will, health care power of banking attorney): none Patient Recent Code Status: No Order Code Status For This Procedure: Full Code Sonia Beach MD [facility]-15-2023 Evaluation + Plan noteExtracted from: Title:ED NoteAuthor:Charli DUMONT JohnDate:10/06/22 Lower extremity weakness (R2 9.898: [...] NM Myocardial Spect Rest/Stress 1 Day 12/16/21 [facility]04-24-2023 Hospital Discharge instructions Patient Education 09/15/2022 [...] cut, a sore, or an invasive medical office rep, it can cause a serious infection. What are the causes? This condition is caused by staph bacteria. Illness may develop after exposure to the bacteria through: Wduw-yt-ecav contact with someone who is infected with MRSA. Touching surfaces that have the bacteria on them. Having a procedure or using equipment that allows MRSA to enter the body. Having MRSA that lives on your skin and then enters your body through: ?A cut or scratch. ?A surgery or procedure. ?The use of a medical office rep. Contact with the bacteria may occur: During a stay in a hospital, rehabilitation facility, longterm, or other health care facility (health care associated MRSA). In daily activities where there is close contact with others, such as sports, child's nurse centers, or at home (community-associated MRSA). What [...] system (immune system). Play sports that involve msjk-md-kmhf contact. Live in a crowded place, like a dormitory or [employer] barracks. Share towels, razors, or sports equipment [...] Follow these instructions at home: Medicines Take fdzu-fdj-vlvolnp and prescription medicines only as told by [...] are not available, use an alcohol-based hand stucco worker. Avoid close contact with those around you [...] provider. Document Revised: 07/28/2019 Document Reviewed: 07/29/2019 [employer] Patient Education 2022 [employer]. 09/15/2022 12:14:10 Cellulitis, Adult Cellulitis, Adult Cellulitis [...] Follow these instructions at home: Medicines Take qwtd-ulo-zabvlbs and prescription medicines only as told by [...] such as antibiotic medicines or antihistamines. Take fvju-ekq-efdhubs and prescription medicines only as told by [...] provider. Document Revised: 02/20/2022 Document Reviewed: 02/20/2022 [employer] Patient Education 2022 [employer]. Follow Up Care 09/12/2022 13:40:51 With:LAURENT FRANCO Address: [address] [place] [address]- Business (1) When: Unknown Comments:Appointment line is out of service. Please contact your PCP for an appointment. Thank you! With:Soto Box Address: [facility] [address] [facility] [place] [address]- 0 Business (1) When:3 to 5 days Comments:Call for followup appointment [facility]04-24-2023 Evaluation + Plan noteExtracted from: Title:Discharge NoteAuthor:Bry [...] Oral, Daily ergocalciferol 50,000 intl units Cap, 35820 International_Unit= 1 cap(s), Oral, Thursday hydrOXYzine pamoate [...] Soto Box Within 3 to 5 days [facility] [address] [place] [address]- 0 Business (1) Additional Instructions: LAURENT FRANCO In 0 days [address] [place] [address]- Business (1) Additional Instructions: MRSA Infection, Diagnosis, Adult Cellulitis, Adult Extracted from:Title:APSO NoteAuthor:AMELIE GUEVARANP, CharleneDate:09/14/22 PLAN 1. Cellulitis (L03.90: Cellulitis, unspecified) Patiently recently admitted to [facility] and underwent an incision and drainage of [...] shoe follow-up next week Her cultures at [facility] was positive for MRSA Blood culture negative Wound culture positive for staph coag positive prelim Pain control when patient's blood pressure stable/normotensive. 2. Hypertensive heart failure (I11.0: Hypertensive heart disease with heart failure) Is received 2 L of IV fluid since admission we will give 1 more today as patient is still hypotensive 3. CAD (coronary artery disease) (I25.10: Atherosclerotic heart disease of [place] coronary artery without angina pectoris) history of VT with AICD placed per Dr Noble in [place]. Statin, aspirin, BB 4. HTN (hypertension) (I10: [...] (L03.90: Cellulitis, unspecified) Patiently recently admitted to [facility] and underwent an incision and drainage of a nailperformed by Dr. Swapnil Castillo however the nail continues to drain had abscess at the base of the digit --assess for ? osteomyelitis Unable to undergo MRI due to pacemaker. Cannot do bone scan on weekend CT left lower extremity w/o contrast pending. Continue Cubicin IV Consult ID pending. Consult podiatry pending Her cultures at [facility] was positive for MRSA Blood culture pending Wound culture positive for staph coag positive prelim Pain control when patient's blood pressure stable/normotensive. 2. Hypertensive heart failure (I11.0: Hypertensive heart disease with heart failure) Is received 2 L of IV fluid since admission we will give 1 more today as patient is still hypotensive 3. CAD (coronary artery disease) (I25.10: Atherosclerotic heart disease of [place] coronary artery without angina pectoris) history of VT with AICD placed per Dr Noble in [place]. Statin, aspirin, BB 4. HTN (hypertension) (I10: [...] Consult to Infectious Disease Physician Consult to Prenatal Genetic Counselor Continuous Pulse Oximetry Diabetic/Calorie Control Diet Elevate [...] NM Myocardial Spect Rest/Stress 1 Day 12/16/21 [facility]03-31-2023 Discharge summary Author Jeana Martini [facility] August 22, 2022 1:35pmNote Date/TimeMarch 2022 1:30pm[place] [address] Discharge Summary Signed Patient: Addie Jean Baptiste MR#: [id number] : 1975 Acct:[id number] Age/Sex: 47 / F Adm Date: 3 Loc: Room: [address] [place] [address]: Jeana Martini MD Copies to: Laurent Franco FINISHING TECHNICIANKandi Martini MD~ Providers Date of Discharge: 08/22/22 [...] on intravenous antibiotic Patient was seen by real estate director who recommended and performed bedside incision and [...] place, time and person, morbidly obese HEENT: [place] conjunctiva and NL buccal mucosa Neck: Supple, [...] ask your primary care provider to obtain [facility] records entirely to follow up on all of the abnormal physical, laboratory, and imaging findings thatI have not addressed. Please follow-up with Dr. Romero to evaluate your circulation Please return back to the emergency room or seek medical attention if your symptoms worsen or return. Discharging you from [facility] does not mean that your medical [...] to 2 weeks. Please call for appointment.) [facility] [Physician] - 08/25/22 10:15 am (Follow-up with your Primary Care Provider, call office to reschedule if needed. ) Documented By: Jeana Martini MD 08/22/22 1325 Signed By: <Electronically signed by Jeana Martini MD> 08/22/22 1335 [facility] Work Phone: 1(272) 773-824103-31-2023 Hospital Discharge instructionsAmbulatory Orders* Initiate Home Health Time Frame: 08/22/22, Location: Determined By Patient Additional Instructions I may not have addressed or treated all of your medical illnesses or the abnormal blood work or imaging studies during this hospitalization. Please ask your primary care provider to obtain [facility] records entirely to follow up on all of the abnormal physical, laboratory, and imaging findings that I have not addressed. Please follow-up with Dr. Romero to evaluate your circulation Please return back to the emergency room or seek medical attention if your symptoms worsen or return. Discharging you from [facility] does not mean that your medical [...] Assist with medication management and [facility] Work Phone: 1(165) 828-694303-31-2023 Progress note Author Shameka Romero [facility] August 22, 2022 9:56amNote Date/TimeMarch 2022 9:56am[place] [id number] Vascular Surgery Progress Note Signed Patient: Addie Jean Baptiste MR#: [id number] : 1975 Acct:[id number] Age/Sex: 47 / F Adm Date: 3 Loc: Room: [address] [place] [address] Type: ADM IN Attending Dr: Jeana Martini [...] foot. We did bring the patient down [facility] special suite and placed her [facility] angiography table. She is extremely anxious [...] signed by Shameka Romero MD> 08/22/22 0956 [facility] Work Phone: 1(609) 501-851703-31-2023 Progress note Author Jeana Martini [facility] August 22, 2022 9:54amNote Date/TimeMarch 2022 9:55[place] [address] Hospitalist Progress Note Signed Patient: Addie Jean Baptiste MR#: [id number] : 1975 Acct:[id number] Age/Sex: 47 / F Adm Date: 3 Loc: Room: [address] [place] [address] Type: ADM IN Attending Dr: Jeana Martini [...] place, time and person, morbidly obese HEENT: [place] conjunctiva and NL buccal mucosa Neck: Supple, [...] signed by Jeana Martini MD> 08/22/22 0954 [facility] Work Phone: 1(729) 909-235003-30-2023 Consult note Author Shameka Romero [facility] August 21, 2022 4:02pmNote Date/TimeMarch 2022 4:00pm[place] [address] Vascular Surgery Consult Note Signed Patient: Addie Jean Baptiste MR#: [id number] : 1975 Acct:[id number] Age/Sex: 47 / F Adm Date: 3 Loc: Room: [address] [place] [address] Type: ADM IN Attending Dr: Jeana Martini [...] date: 08/21/2022 Requesting Physician: Je[facility] Martini MD [facility] Vaccinated for COVID-19?: Yes Medical History Anxiety [...] % (Auto) 69.4 Lymph % (Auto) 20.6 [place] % (Auto) 7.4 Eos % (Auto) 1.8 Baso % (Auto) 0.8 Nucleat RBC Rel Count 0.0 Neut # (Auto) 5.7 Lymph # (Auto) 1.7 [place] # (Auto) 0.6 Eos # (Auto) 0.2 [...] MPV Neut % (Auto) Lymph % (Auto) [place] % (Auto) Eos % (Auto) Baso % (Auto) Nucleat RBC Rel Count Neut # (Auto) Lymph # (Auto) [place] # (Auto) Eos # (Auto) Baso # [...] Acute Documented By: Shameka Romero MD 08/21/22 1552 Signed By: <Electronically signed by Shameka Romero MD> 08/21/22 1602 [facility] Work Phone: 1(824) 630-536703-30-2023 Progress note Author Lawrence Kim [facility] August 21, 2022 11:22amNote Date/TimeMarch 2022 11:22[place] [id number] Infect. Disease Progress Note Signed Patient: Addie Jean Baptiste MR#: [id number] : 1975 Acct:[id number] Age/Sex: 47 / F Adm Date: 3 Loc: 3T Room: [address] [place] [address] Type: ADM IN Attending Dr: Jeana Martini [...] Mg/0.4 Ml Syringe) 40 mg SUBCUT DAILY@1000 [facility] Stop: 08/20/23 09:59 Last Admin: [...] 300 Units/3 Ml Insuln.Pen) 0 units SUBCUT TID.WM.[facility]; Protocol Stop: 08/20/23 11:59 Last Admin: 08/21/22 09:03 Dose: Not Given Levetiracetam (Levetiracetam 250 Mg Tablet) 750 mg PO BID SAMEER Stop: 08/20/23 08:59 Last Admin: 08/21/22 08:59 Dose: 750 mg Levothyroxine Sodium (Levothyroxine 75 Mcg Tablet) 75 mcg PO DAILY@0630 SAMEER Stop: 08/20/23 06:29 Last Admin: 08/21/22 06:09 Dose: 75 mcg Lisinopril (Lisinopril 40 Mg Tablet) 40 mg PO DAILY [facility] Stop: 08/20/23 08:59 Last Admin: 08/21/22 09:01 Dose: 40 mg Metformin HCl (Metformin 500 Mg Tablet) 1,000 mg PO BID.WITH.MEALS [facility] Stop: 08/20/23 07:59 Last Admin: 08/21/22 09:00 Dose: 1,000 mg Pantoprazole Sodium (Pantoprazole 40 Mg Tablet.Dr) 40 mg PO DAILY [facility] Stop: 08/21/23 08:59 Last Admin: 08/21/22 09:01 Dose: 40 mg Pregabalin (Pregabalin 150 Mg Capsule) 150 mg PO [facility] Stop: 02/16/23 03:44 Last Admin: 08/20/22 21:12 Dose: 150 mg Quetiapine Fumarate (Quetiapine Fumarate 200 Mg Tablet) 800 mg PO [facility] Stop: 08/20/23 03:59 Last Admin: 08/20/22 21:12 Dose: 800 mg Saccharomyces Boulardii (Saccharomyces Boulardii 250 Mg Capsule) 250 mg PO BID.WITH.MEALS [facility] Stop: 08/20/23 07:59 Last Admin: [...] signed by MD Lawrence Kim> 08/21/22 1122 [facility] Work Phone: 1(246) 852-498903-30-2023 Progress note Author Jeana Martini [facility] August 21, 2022 10:10amNote Date/TimeMarch 2022 10:10[place] [address] Hospitalist Progress Note Signed Patient: Addie Jean Baptiste MR#: [id number] : 1975 Acct:[id number] Age/Sex: 47 / F Adm Date: 3 Loc: 3T Room: [address] [place] [address] Type: ADM IN Attending Dr: Jeana Martini [...] place, time and person, morbidly obese HEENT: [place] conjunctiva and NL buccal mucosa Neck: Supple, [...] signed by Jeana Martini MD> 08/21/22 1010 [facility] Work Phone: 1(395) 204-335803-29-2023 Consult note Author Swapnil Castillo [facility] August 20, 2022 1:14pmNote Date/TimeMarch 2022 1:13pm[place] [address] Podiatry Consult Note Signed Patient: Addie Jean Baptiste MR#: [id number] : 1975 Acct:[id number] Age/Sex: 47 / F Adm Date: 3 Loc: Room: [address] [place] [address] Type: ADM IN Attending Dr: Jeana Martini [...] <Electronically signed by LUPE Castillo> 08/20/22 1314 [facility] Work Phone: [phone]) 540-655403-29-2023 Consult note Author Lawrence Kim [facility] August 20, 2022 10:27amNote Date/TimeMarch 2022 10:26[place] [address] Infect. Disease Consult Note Signed Patient: Addie Jean Baptiste MR#: [id number] : 1975 Acct:[id number] Age/Sex: 47 / F Adm Date: 3 Loc: Room: [address] [place] [address] Type: ADM INOo Attending Dr: Jeana Martini [...] me she was hospitalized in July at [place] for 4 days for this. She apparently [...] negative unless noted below or in [facility] Attestation Statement: The following information was [...] 5 Mg Tablet) 5 mg PO DAILY [facility] Stop: 08/20/23 09:39 Clonidine HCl [...] % (Auto) 64.7 Lymph % (Auto) 27.3 [place] % (Auto) 6.0 Eos % (Auto) 1.3 Baso % (Auto) 0.7 Nucleat RBC Rel Count 0.0 Neut # (Auto) 5.5 Lymph # (Auto) 2.3 [place] # (Auto) 0.5 Eos # (Auto) 0.1 [...] Color Urine Appearance Urine pH Ur Specific [place] Urine Protein Urine Glucose (UA) Urine Ketones [...] MPV Neut % (Auto) Lymph % (Auto) [place] % (Auto) Eos % (Auto) Baso % (Auto) Nucleat RBC Rel Count Neut # (Auto) Lymph # (Auto) [place] # (Auto) Eos # (Auto) Baso # [...] Appearance Clear Urine pH 6.5 Ur Specific [place] 1.017 Urine Protein 100 H Urine Glucose [...] % (Auto) 68.9 Lymph % (Auto) 22.6 [place] % (Auto) 6.9 Eos % (Auto) 1.1 Baso % (Auto) 0.5 Nucleat RBC Rel Count 0.2 Neut # (Auto) 6.2 Lymph # (Auto) 2.0 [place] # (Auto) 0.6 Eos # (Auto) 0.1 [...] Color Urine Appearance Urine pH Ur Specific [place] Urine Protein Urine Glucose (UA) Urine Ketones [...] MPV Neut % (Auto) Lymph % (Auto) [place] % (Auto) Eos % (Auto) Baso % (Auto) Nucleat RBC Rel Count Neut # (Auto) Lymph # (Auto) [place] # (Auto) Eos # (Auto) Baso # [...] Color Urine Appearance Urine pH Ur Specific [place] Urine Protein Urine Glucose (UA) Urine Ketones [...] MPV Neut % (Auto) Lymph % (Auto) [place] % (Auto) Eos % (Auto) Baso % (Auto) Nucleat RBC Rel Count Neut # (Auto) Lymph # (Auto) [place] # (Auto) Eos # (Auto) Baso # [...] Color Urine Appearance Urine pH Ur Specific [place] Urine Protein Urine Glucose (UA) Urine Ketones [...] <Electronically signed by MD Lawrence Kim> 08/20/22 [facility]7 [facility] Work Phone: 1(532) 374-509203-29-2023 Progress note Author Jeana Martini [facility] August 20, 2022 9:48amNote Date/TimeMarch 2022 9:48[place] [address] Hospitalist Progress Note Signed Patient: Addie Jean Baptiste MR#: [id number] : 1975 Acct:[id number] Age/Sex: 47 / F Adm Date: 3 Loc: Room: [address] [place] [address] Type: ADM INOo Attending Dr: Jeana Martini [...] place, time and person, morbidly obese HEENT: [place] conjunctiva and NL buccal mucosa Neck: Supple, [...] <Electronically signed by Jeana Martini MD> 08/20/22947 [facility] Work Phone: 1(955) 557-219503-29-2023 History and physical note Author Ezekiel Mathew [facility] March 29th, 2023 3:56amNote Date/TimeMarch 2022 3:56[place] [address] Hospitalist H&P Signed Patient: Addie Jean Baptiste MR#: [id number] : 1975 Acct:[id number] Age/Sex: 47 / F Adm Date: 3 Loc: Room: [address] [place] [address] Type: ADM INOo Attending Dr: Ezekiel Mathew [...] % (Auto) 27.3 % (.) 08/20/22 00:19 [place] % (Auto) 6.0 % (.) 08/20/22 00:19 Eos % (Auto) 1.3 % (.) 08/20/22 00:19 Baso % (Auto) 0.7 % (.) 08/20/22 00:19 Nucleat RBC Rel Count 0.0 /100 WBC (0-0.5) 08/20/22 00:19 Neut # (Auto) 5.5 x10E3/uL (1.8-7.7) 08/20/22 00:19 Lymph # (Auto) 2.3 x10E3/uL (1.00-4.8) 08/20/22 00:19 [place] # (Auto) 0.5 x10E3/uL (0.0-0.8) 08/20/22 00:19 [...] pH 6.5 (5.0-9.0) 08/20/22 01:07 Ur Specific [place] 1.017 (1.001-1.030) 08/20/22 01:07 Urine Protein 100 [...] She states that 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 Box. Since his partner Dr. [...] signed by Ezekiel Mathew DO> 08/20/22 0356 [facility] Work Phone: 1(266) 779-611103-28-2023 Hospital Discharge instructions Patient Education 08/19/2022 20:32:56 [...] and 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 ?Change your dressing as told by your [...] antibiotic even if your condition improves. Take kviy-wra-dhlkuhe and prescription medicines only as told by [...] 02/17/2009 Document Revised: 08/29/2019 Document Reviewed: 11/25/2016 [employer] Patient Education 2020 [employer] 08/19/2022 20:32:56 Type 2 Diabetes Mellitus, Self Care, Adult, Xogx-aa-Akvn Type 2 Diabetes Mellitus, Self Care, Adult [...] and canola oil. Meet with a food order delivery runner (dietitian). He or she can help you [...] for cuts, bruises, redness, blisters, or sores. [place] your teeth and gums two times a day. Floss one or more times a day. Go to the dentist one or more times every 6 months. Stay at a healthy weight. General instructions Take rrxy-jei-aswkwqp and prescription medicines only as told by your doctor. Share your diabetes care plan with: ?Your work or school. ?People you live with. Carry a card or wear jewelry that says you have diabetes. Keep all follow-up visits as told by your doctor. This is important. Questions to ask your doctor Do I need to meet with a newspaper peddler? Where can I find a support group for people with diabetes? Where to find more information To learn more about diabetes, visit: [place] Diabetes Association: www.diabetes.org [place] Association of Diabetes Educators: www.diabeteseducator.org Summary When [...] 09/01/2016 Document Revised: 11/01/2018 Document Reviewed: 06/13/2016 [employer] Patient Education 2020 [employer]. Follow Up Care 08/19/2022 17:03:41 With:Pool Heath Address: [place] [address]- [place] (1) When:08/22/2022 20:16:55 [facility]03-28-2023 Evaluation + Plan note Diagnostic Tests Pending * Blood Culture Charcoal 08/19/22 * Blood Culture Charcoal 08/19/22 * UA With Cult Reflex 08/19/22 * Wound Culture 08/19/22 Future Scheduled Tests Laboratory* Fecal WBC Lactoferrin 10/30/21 * Enteric Panel by PCR 10/30/21 Radiology* NM Myocardial Spect Rest/Stress 1 Day 12/16/21 * Echo Transthoracic Complete 09/03/21 [facility]01-09-2023 Hospital Discharge instructions Patient Education 06/02/2022 20:35:11 Seizure, Adult, Wovm-lq-Dtlb Seizure, Adult A seizure is a sudden [...] Follow these instructions at home: Medicines Take tdnj-rnq-dkdoxls and prescription medicines only as told by [...] [place] ask your local DMV (department of [employer]) when you can drive. Get plenty of [...] 10/27/2008 Document Revised: 07/29/2019 Document Reviewed: 07/29/2019 [employer] Patient Education 2020 [employer]. 06/02/2022 20:35:11 Abdominal Pain, Adult, Jdgg-vj-Vkir Abdominal Pain, Adult Many things can cause belly (abdominal) pain. Most times, belly pain is not dangerous. Many cases of belly pain can be watched and treated at home. Sometimes, though, belly pain is serious. Your doctor will try to find the cause of your belly pain. Follow these instructions at home: Medicines Take ajxe-mte-scwtmfr and prescription medicines only as told by [...] your belly pain for any changes. Take mnff-hae-lfuqsst and prescription medicines only as told by [...] 10/27/2008 Document Revised: 09/19/2019 Document Reviewed: 09/19/2019 [employer] Patient Education 2020 [employer]. Follow Up Care 06/02/2022 15:49:02 With:Pool Heath Address: [address] [place] [id number] Business (1) When:06/05/2022 20:05:40 Comments:Take your medications as prescribed. Please follow-up with your primary care doctor in addition to your neurologist for further evaluation management. Please return to ED for any new or worsening symptoms. [facility]01-09-2023 Evaluation + Plan noteExtracted from: Title:ED NoteAuthor:Bridgett [...] Day 12/16/21 * Echo Transthoracic Complete 09/03/21 [facility]12-22-2022 Hospital Discharge instructions Patient Education 05/15/2022 16:59:08 Paronychia, Zjrp-ky-Foyd Paronychia Paronychia is an infection of the [...] cannot use soap and water, 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 ?Change your bandage as told by your doctor. If you had a fluid-filled bump and your doctor drained it, check the area every day for signs of infection. Check for: ?Redness, swelling, or pain. ?Fluid or blood. ?Warmth. ?Pus or a bad smell. Medicines Take pcez-aza-mhjpmns and prescription medicines only as told by [...] ?Wear gloves if your hands might touch home appraiser or chemicals. ?Avoid injuring your nails or [...] 04/29/2010 Document Revised: 05/28/2018 Document Reviewed: 05/24/2018 [employer] Patient Education 2020 [employer]. Follow Up Care 05/15/2022 16:12:54 With:Pool Heath Address: [address] [place] [phone] Business (1) When:Within 3 Day(s) [facility]12-22-2022 Evaluation + Plan noteExtracted from: Title:ED NoteAuthor:Heather [...] Day 12/16/21 * Echo Transthoracic Complete 09/03/21 [facility]11-16-2022 Evaluation + Plan noteExtracted from: Title:Discharge NoteAuthor:Kinza [...] QID, PRN ergocalciferol 50,000 intl units Cap, 83942 International_Unit= 1 cap(s), Oral, q7day Keppra 250 [...] SAMUEL Jaimes Within 2 to 4 weeks [address] [place] [address]- Additional Instructions: Radha Dias DO Within 2 to 4 days [address] [place] [address]- Additional Instructions: Diabetes Mellitus and Nutrition, Adult [...] Oral, Daily ergocalciferol 50,000 intl units Cap, 32024 International_Unit= 1 cap(s), Oral, q7day insulin glargine [...] SAMUEL Jaimes Within 2 to 4 weeks [address] [place] [address]- Additional Instructions: Radha Dias DO Within 2 to 4 days [address] [place] [address]- Additional Instructions: Diabetes Mellitus and Nutrition, Adult [...] Patient walks with FWW Addendum by Pepe Echosl MD on April 08, 2022 14:09:08 EST [...] of symptom onset she was evaluated at [facility] and had a stroke work-up, results of which are unclear. CT head here does not show any obvious areas of subacute ischemia. Could also consider lumbar radiculopathy as a potential explanation given her known lumbar spondylosis. Nondermatomal sensory loss and nonmyotomal pattern of weakness. Very questionable effort. 3. Chronic diabetic polyneuropathy. PLAN: 1. Obtaining hospital records from [facility] to ensure they looked into stroke [...] were abnormal. An additional EEG will not record changer assembler. 1. DKA (diabetic ketoacidosis) (E11.10: Type 2 [...] of symptom onset she was evaluated at [facility] and had a stroke work-up, results of which are unclear. CT head here does not show any obvious areas of subacute ischemia. Could also consider lumbar radiculopathy as a potential explanation given her known lumbar spondylosis. Nondermatomal sensory loss and nonmyotomal pattern of weakness. 3. Chronic diabetic polyneuropathy. PLAN: 1. Obtaining hospital records from [facility] 2. Continue the Keppra at 750 [...] were abnormal. An additional EEG will not record changer assembler. 1. DKA (diabetic ketoacidosis) (E11.10: Type 2 [...] 2 diabetes mellitus with ketoacidosis without coma) [place] to be mild versus nonketotic hyperosmolar state [...] deficits) Patient states she was hospitalized at [facility] with right leg weakness and numbness 3 weeks ago. Curiously she states she had been on aspirin previously and there was no change in her therapy. We will obtain records from [facility] in regards to her recent hospitalization. [...] but [facility] denies any recent discharge of [...] Level myStation Chronic Obstructive Pulmonary Disease COPD (ADRIANE:[id number]) Notify Provider Vital Signs Notify Provider Vital [...] Day 12/16/21 * Echo Transthoracic Complete 09/03/21 [facility]11-14-2022 Hospital Discharge instructions Patient Education 04/07/2022 [...] that you work with a diet and disaster recovery specialist (dietitian) tomake a meal plan that is [...] care provider. Work with a counselor or newspaper peddler to identify strategies to manage stress and any emotional and social challenges. Questions to ask a health care provider Do I need to meet with a newspaper peddler? Do I need to meet with a dietitian? What number can I call if I have questions? When are the best times to check my blood glucose? Where to find more information: [place] Diabetes Association: diabetes.org Academy of Nutrition and Dietetics: www.eatright.org National [place] of Diabetes and Digestive and Kidney Diseases (NIH): www.niddk.nih.gov Summary A healthy meal plan will help you control your blood glucose and maintain a healthy lifestyle. Working with a diet and disaster recovery specialist (dietitian) can help you make a meal [...] 02/05/2006 Document Revised: 04/23/2018 Document Reviewed: 06/15/2017 [employer] Patient Education 2020 [employer]. 04/07/2022 07:24:34 Diabetes Mellitus and Foot Care Diabetes Mellitus and Foot Care Foot care is an important part of your health, especially when you have diabetes. Diabetes may cause you to have problems because of poor blood flow (circulation) to your feet and legs, which can cause your skin to: Become thinner and milk drier. Break more easily. Heal more slowly. [...] 05/08/2001 Document Revised: 06/23/2018 Document Reviewed: 06/12/2017 [employer] Patient Education 2020 [employer]. 04/07/2022 07:24:32 Diabetes Mellitus and Exercise Diabetes [...] plan? Your health care provider or certified tumor registrar can help you make a plan for [...] stress. Your health care provider or certified tumor registrar can help you make a plan for [...] 07/31/2004 Document Revised: 12/03/2017 Document Reviewed: 10/20/2016 [employer] Patient Education 2020 [employer]. Follow Up Care 04/06/2022 20:30:13 With:Polo Bo MD, NEU Address: [address] [place] [address] (1) When:05/01/2022 12:40:00 With:Radha Dias DO Address: [address] , [facility] [address] [place] [address] When:04/23/2022 12:45:00 [facility]10-06-2022 Hospital Discharge instructions Patient Education 02/27/2022 17:35:47 Nonspecific Chest Pain, Adult, Pnfg-si-Lrbw Nonspecific Chest Pain Chest pain can be [...] Follow these instructions at home: Medicines Take kujz-qat-zoclmvz and prescription medicines only as told by [...] ?Eating a heart-healthy diet. A diet and disaster recovery specialist (dietitian) can help you to learn healthy [...] 10/27/2008 Document Revised: 11/11/2018 Document Reviewed: 11/11/2018 [employer] Patient Education 2020 [employer]. 02/27/2022 17:35:47 Seizure, Adult, Uzkh-cp-Lbbv Seizure, Adult A seizure is a sudden [...] Follow these instructions at home: Medicines Take wkma-evv-tuclfse and prescription medicines only as told by [...] [place]., ask your local DMV (department of [employer]) when you can drive. Get plenty of [...] 10/27/2008 Document Revised: 07/29/2019 Document Reviewed: 07/29/2019 [employer] Patient Education 2020 [employer] Follow Up Care 02/27/2022 11:56:29 With:[facility]ck with [facility] next [facility] Address:Unknown When: Unknown With:Radha Dias Address: [address] , [facility] [address] [place] [address]- Business (1) When:Within 3 Day(s) [facility]10-06-2022 Evaluation + Plan noteExtracted from: Title:ED NoteAuthor:Lucia [...] BID, # 60 tab(s), Refills(s) 0, Pharmacy: [facility], 157, cm, 02/27/22 12:02:00 EDT, [...] Day 12/16/21 * Echo Transthoracic Complete 09/03/21 [facility]-30-2022 Hospital Discharge instructions Patient Education 02/21/2022 [...] and 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 Keep the wound clean and dry. If [...] falls off the skin. General instructions Take ocem-yjo-yuqfvjj and prescription medicines only as told by [...] 05/11/2006 Document Revised: 07/09/2018 Document Reviewed: 05/31/2018 [employer] Patient Education 2020 [employer] Follow Up Care 02/21/2022 14:51:18 With:Radha Dias Address: [address], [address], [facility] [address] [place] [address] [facility] (1) When:02/24/2022 15:15:47 Comments:Follow-up with your primary care provider in 3 to 5 days. If symptoms worsen, do not improve, or new symptoms arise please report back to emergency department for further evaluation. Sutures to be removed in 10 days. [facility]09-02-2022 Hospital Discharge instructions Patient Education 01/24/2022 [...] water added (diluted fruit juice). Eat bland, fjvf-ax-tsljfo foods in small amounts as you are able. These foods include bananas, applesauce, rice, lean meats, toast, and crackers. Avoid fluids that contain a lot of sugar or caffeine, such as energy drinks, sports drinks, and soda. Avoid alcohol. Avoid spicy or fatty foods. General instructions Take tism-zav-jfvspnw and prescription medicines only as told by your health care provider. Drink enough fluid to keep your urine pale yellow. Wash your hands often using soap and water. If soap and 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 Make sure that all people in your [...] eating and drinking to prevent dehydration. Take sfho-sgq-ggbjmtg and prescription medicines only as told by [...] 05/11/2006 Document Revised: 09/02/2019 Document Reviewed: 10/19/2018 [employer] Patient Education 2020 [employer]. 01/24/2022 14:32:12 Diarrhea, Adult Diarrhea, Adult Diarrhea [...] oral rehydration solution (ORS). This is an lvob-eqn-itwmjfe medicine that helps return your body to [...] drinks, sports drinks, and soda. Eat bland, qawn-tl-ospyhh foods in small amounts as you are able. These foods include bananas, applesauce, rice, lean meats, toast, and crackers. Avoid alcohol. Avoid spicy or fatty foods. Medicines Take nslj-gzg-pfoafiv and prescription medicines only as told by your health care provider. If you were prescribed an antibiotic medicine, take it as told by your health care provider. Do notstop using the antibiotic even if you start to feel better. General instructions Wash your hands often using soap and water. If soap and water are not available, use a hand stucco worker. Others in the household should wash their [...] soap and water are not available, usehand stucco worker. Contact a health care provider if your diarrhea gets worse or you have new symptoms. Get help right away if you have signs of dehydration. This information is not intended to replace advice given to you by your health care provider. Make sure you discuss any questions you have with your health care provider. Document Released: 05/01/2003 Document Revised: 09/27/2019 Document Reviewed: 10/15/2018 [employer] Patient Education 2020 [employer]. 01/24/2022 14:32:12 Acute Pain, Adult Acute Pain, [...] Follow these instructions at home: Medicines Take tavx-ncd-fxztilm and prescription medicines only as told by [...] pain is severe. ?Do not take other erkj-llo-aecstlc pain medicines in addition to prescription pain [...] grains, and fresh fruits and vegetables. ?Take kgzu-ybs-bxsefuu or prescription medicines. ?Limit foods that are [...] or you are no longer ill. Take tdxg-tsn-nqftnwh and prescription medicines only as told by [...] 05/25/2016 Document Revised: 09/26/2019 Document Reviewed: 09/26/2019 [employer] Patient Education 2020 [employer] Follow Up Care 01/24/2022 10:45:45 With:Radha Dias Address: [address], [facility] [address] [place] [address]- [facility] (1) When:01/27/2022 14:08:11 [facility]08-18-2022 Hospital Discharge instructions Patient Education 01/09/2022 [...] exercise. Managing pain, stiffness, and swelling Take ukxr-yck-gwezrev and prescription medicines only as told by [...] 05/11/2006 Document Revised: 04/23/2018 Document Reviewed: 06/10/2017 [employer] Patient Education 2020 [employer]. 01/09/2022 17:03:20 Chest Wall Pain Chest Wall [...] are safe for you. General instructions Take jwaw-nin-dtkkkrs and prescription medicines only as told by [...] 05/11/2006 Document Revised: 11/11/2018 Document Reviewed: 11/11/2018 [employer] Patient Education 2020 [employer]. Follow Up Care 01/09/2022 12:14:58 With:Kirk Abbott Address: [address] [place] [address]- [facility] (1) When:1 to 2 weeks Comments:Call [...] scheduling to schedule a 2-day stress test. Manager Salt evaluated you during your hospital stay and they cleared you for discharge. Please follow-up with oscillograph technician after stress test is complete. Please do not delay the stress test any further. Keep taking the medications as you are taking as we are not changing anything.Dr. Juan GonzalezH[facility] Evaluation + Plan noteExtracted from: Title:Consult NoteAuthor:Milena [...] Abbott Within 1 to [address] [place] [address] [address] [facility] (1) Additional Instructions: Call for followup [...] scheduling to schedule a 2-day stress test. Manager Salt evaluated you during your hospital stay and they cleared you for discharge. Please follow-up with oscillograph technician after stress test is complete. Please do not delay the stress test any further. Keep taking the medications as you are taking as we are not changing anything. Dr. Juan Gonzalez Hospitalist at [facility] Musculoskeletal Pain Chest Wall Pain Extracted from:Title:Admission [...] made to ensure accuracy, however, inadvertently computerized hebrew teacher mistakes may be present. Dr. Juan Gonzalez Hospitalist at [facility] Extracted from:Title:ED NoteAuthor:Jose Miguel Burciaga, Bridgett HDate:01/09/22 [...] Day 12/16/21 * Echo Transthoracic Complete 09/03/21 [facility]07-21-2022 Hospital Discharge instructions Patient Education 12/12/2021 [...] 06/18/2005 Document Revised: 04/23/2018 Document Reviewed: 08/06/2017 [employer] Patient Education 2020 [employer]. 12/12/2021 17:14:19 BMI for Adults BMI for [...] height. This can be done either in [place] or metric measurements. Note that charts are available to help you find your BMI quickly and easily without having to do these calculations yourself. To calculate your BMI in [place] measurements, your health care provider will: [...] medical problems. BMI can be measured using [place] measurements or metric measurements. To interpret your [...] 01/20/2005 Document Revised: 04/23/2018 Document Reviewed: 03/24/2018 [employer] Patient Education 2020 [employer]. 12/12/2021 17:04:18 Lactose Intolerance, Adult Lactose Intolerance, [...] you eat milk products. Lactase tablets are jdsh-cbf-jiuuisx medicines that help to improve lactose digestion. [...] contain: ?Lactose. ?Milk solids. ?Casein. ?Whey. Take qpht-qwa-lckcrfs and prescription medicines (including lactase tablets) only as told by your health care provider. If you stop eating and drinking dairy products (eliminate dairy from your diet), make sure to get enough protein, calcium, and vitamin D from other foods. Work with your health care provider or a diet and disaster recovery specialist (dietitian) to make sure you get enough [...] 05/11/2006 Document Revised: 04/23/2018 Document Reviewed: 12/25/2017 [employer] Patient Education 2020 [employer]. Follow Up Care 12/12/2021 12:11:17 With:Riccardo HENDERSON Breanna R Address: When: only if needed [facility] 07-17-2022 Hospital Discharge instructions Patient [...] hard liquor (44 mL). General instructions Take vhfu-jqo-bbotqxh and prescription medicines only as told by your health care provider. Practice techniques for relaxation and managing anxiety at times you are not challenged by social anxiety. Return to social activities using techniques you have learned, as you feel ready to do so. Avoid caffeine and certain pipi-wmm-opwkyql cold medicines. These may make you feel worse. Ask yourpharmacists which medicines to avoid. Keep all follow-up visits as told by your health care provider. This is important. Where to find more information [employer] [place] [employer] Mental [employer]ness (AVA): https://www.ava.org Social Anxiety [...] 04/09/2006 Document Revised: 10/12/2019 Document Reviewed: 10/12/2019 [employer] Patient Education 2020 [employer] 12/08/2021 14:29:40 Seizure, Adult Seizure, Adult [...] Follow these instructions at home: Medicines Take aeyd-iui-fhettkz and prescription medicines only as told by [...] check with your local DMV (department of [employer]) to find out aboutlocal driving laws. Each [...] medicines are used to treat seizures. Take dxzd-boa-tyorpcf and prescription medicines only astold by your health care provider. This information is not intended to replace advice given to you by your health care provider. Make sure you discuss any questions you have with your health care provider. Document Released: 05/08/2001 Document Revised: 07/29/2019 Document Reviewed: 07/29/2019 [employer] Patient Education 2020 [employer]. Follow Up Care 12/08/2021 09:53:20 With:Polo Bo Address: [address] [place] [address]- Business (1) When:12/11/2021 13:49:13 Comments:If you do not have a neurologist, follow-up with Dr. Bo. With:Breanna Gu Address: [address] [facility] [place] [address] [phone] [place] (1) When:12/11/2021 13:48:53 Comments:Follow-up with your primary care provider in 3 to 5 days. If symptoms worsen, do not improve, or new symptoms arise please report back to emergency department for further evaluation. Follow-up with your neurologist immediately. [facility]06-15-2022 Evaluation + Plan noteExtracted from: Title:Discharge NoteAuthor:Evelyn STEVENS, [facility] Hospitalate:11/06/21 Stable Discharge To, Anticipated II - [...] Instructions: Extracted from:Title:Admission H & PAuthor:Evelyn STEVENS, [facility] CenterdDate:11/04/21 UTI -Failed out patient treatment, will treat [...] Date:11/14/2021 10:00:00 AM Scheduled Provider:Breanna Gu CNP Location:[facility] Appointment Type: ER/Hospital Follow Up Appointment Date:11/14/2021 12:15:00 PM Scheduled Provider: [facility] App[facility] Type:NM Myocard Spect Multi Rest/Stress-Res Appointment Date:11/14/2021 01:15:00 PM Scheduled Provider: [facility] Appointment Type:NM Myocard Spect Multi Rest/Stress - R Appointment Date:11/14/2021 01:45:00 PM Scheduled Provider: [facility] Appointment Type:NM Myocard Spect Multi Rest/Stress-Str Appointment Date:11/14/2021 02:45:00 PM Scheduled Provider: [facility] Appointment Type:NM Myocar Spect Multi Rest/Stress - St Appointment Date:11/20/2021 11:45:00 AM Scheduled Provider:Yuriy Fraser MD [facility] Type:Cardiology Follow Up () Appointment Date:01/01/2022 02:00:00 PM Scheduled Provider:Breanna Gu CNP Location:[facility] Appointment Type: Open Future Scheduled Tests Laboratory* Fecal WBC Lactoferrin 10/30/21 * HgbA1c 07/29/21 * Enteric Panel by PCR 10/30/21 * Thyroid Stimulating Hormone 07/29/21 Radiology* NM Myocardial Spect Rest/Stress 1 Day 11/14/21 * Echo Transthoracic Complete 09/03/21 [facility]06-15-2022 Hospital Discharge instructions Patient Education 11/06/2021 11:33:32 Urinary Tract Infection, Adult, Vpau-pi-Qaqy Urinary Tract Infection, Adult A urinary tract [...] Follow these instructions at home: Medicines Take wfxi-arp-lszuxpc and prescription medicines only as told by [...] 10/27/2008 Document Revised: 04/28/2019 Document Reviewed: 11/18/2018 [employer] Patient Education 2020 [employer]. 11/06/2021 11:33:32 Urinary Tract Infection, Adult, Iwax-zw-Isvm Urinary Tract Infection, Adult A urinary tract [...] Follow these instructions at home: Medicines Take ihli-ekq-gayuifx and prescription medicines only as told by [...] 10/27/2008 Document Revised: 04/28/2019 Document Reviewed: 11/18/2018 [employer] Patient Education 2020 [employer]. 11/06/2021 11:33:28 Antibiotic Medicine, Adult, Shtg-sj-Cfns Antibiotic Medicine, Adult Antibiotic medicines treat infections [...] 02/17/2009 Document Revised: 06/17/2019 Document Reviewed: 05/13/2017 [employer] Patient Education 2020 [employer] 11/06/2021 11:33:28 Antibiotic Medicine, Adult, Sxtz-bi-Rpih Antibiotic Medicine, Adult Antibiotic medicines treat infections [...] 02/17/2009 Document Revised: 06/17/2019 Document Reviewed: 05/13/2017 [employer] Patient Education 2020 [employer]. Follow Up Care 11/04/2021 11:24:24 With:Breanna Gu Address:Unknown When: Unknown [facility]06-08-2022 Evaluation + Plan note Future Scheduled Tests Laboratory* Fecal WBC Lactoferrin 10/30/21 * HgbA1c 07/29/21 * Enteric Panel by PCR 10/30/21 * Thyroid Stimulating Hormone 07/29/21 Radiology* NM Myocardial Spect Rest/Stress 1 Day 12/16/21 * Echo Transthoracic Complete 09/03/21 [facility] 06-08-2022 Evaluation + Plan note Future Scheduled Tests Laboratory* Fecal WBC Lactoferrin 10/30/21 * Enteric Panel by PCR 10/30/21 Radiology* NM Myocardial Spect Rest/Stress 1 Day 12/16/21 * Echo Transthoracic Complete 09/03/21 [facility]-18[facility]2022 Hospital Discharge instructions Patient Education 10/09/2021 [...] Follow these instructions at home: Medicines Take fdzq-wbc-lfwnuzm and prescription medicines only as told by [...] and 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 Avoid contact with people who have cold [...] 06/18/2005 Document Revised: 03/24/2019 Document Reviewed: 10/29/2016 [employer] Patient Education 2020 [employer] Follow Up Care 10/09/2021 15:26:41 With:Breanna Gu [...] legs, or any new or worsening symptoms. [facility]05-09-2022 Hospital Discharge instructions Patient Education 09/30/2021 [...] food choices, such as grocery stores and [employer]. What are the signs or symptoms? The [...] and how much exercise you get. Take vddu-ink-wwrqqwe and prescription medicines only as told by [...] 06/18/2005 Document Revised: 01/13/2019 Document Reviewed: 01/13/2019 [employer] Patient Education 2020 [employer]. 09/30/2021 14:51:20 Hypothyroidism Hypothyroidism Hypothyroidism is when [...] away. Follow these instructions at home: Take ckba-acl-ryudntw and prescription medicines only as told by [...] 05/11/2006 Document Revised: 04/23/2018 Document Reviewed: 04/21/2018 [employer] Patient Education 2020 [employer]. 09/30/2021 14:51:16 Preventing Diabetes Mellitus Complications Preventing [...] lead to tooth loss. To prevent this: [place] your teeth twice a day. Floss at [...] 01/27/2012 Document Revised: 08/09/2018 Document Reviewed: 02/07/2017 [employer] Patient Education 2020 [employer]. 09/30/2021 14:51:12 General Anesthesia, Adult General Anesthesia, [...] including vitamins, herbs, eye drops, creams, and fjyw-jnl-addwudg medicines. Any problems you or family members [...] provider tells you to take them. Taking doex-qkd-sgzuopa medicines, vitamins, herbs, and supplements. Do not [...] 08/17/2008 Document Revised: 09/28/2018 Document Reviewed: 12/25/2017 [employer] Patient Education 2019 [employer]. [facility] 01-21-2022 Evaluation note* Encounter Date [...] Patient care instructions given in writting by [facility] Care At Home document. [employer] Other Consult note Author Lawrence Kim [facility] August 20, 2022 10:27amNote Date/TimeMarch 2022 10:26am[place] [address] Infect. Disease Consult Note Signed Patient: Addie Jean Baptiste MR#: [id number] : 1975 Acct:[id number] Age/Sex: 47 / F Adm Date: 3 Loc: Room: [address] [place] [address] Type: ADM INOo Attending Dr: Jeana Martini MD Copies to: MD Jeana Magana MD~ HPI Data of Consult Consult date: 08/20/22 Requesting Physician: Jeana Martnii MD Primary Care Provider: LOLI Quintero Consult Narrative History of present illness: Ms. Jean Baptiste is a 47 year old female who was admitted for left toe wound that apparently has been present for a month. She actually tells me she was hospitalized in July at [place] for 4 days for this. She apparently [...] negative unless noted below or in HPI [facility] Attestation Statement: The following information was [...] 5 Mg Tablet) 5 mg PO DAILY [facility] Stop: 08/20/23 09:39 Clonidine HCl (Clonidine 0.1 Mg Tablet) 0.1 mg PO Q4H PRN PRN Reason: Hypertension Stop: 08/20/23 03:40 Dextrose (Dextrose 50% In Water 25 Gm/50 Ml Syringe) 0 gm IV-PUSH PRN PRN PRN Reason: Hypoglycemia Stop: 08/20/23 03:40 Enoxaparin Sodium (Enoxaparin 40 Mg/0.4 Ml Syringe) 40 mg SUBCUT DAILY@1000 [facility] Stop: 08/20/23 09:59 Last Admin: [...] % (Auto) 64.7 Lymph % (Auto) 27.3 [place] % (Auto) 6.0 Eos % (Auto) 1.3 Baso % (Auto) 0.7 Nucleat RBC Rel Count 0.0 Neut # (Auto) 5.5 Lymph # (Auto) 2.3 [place] # (Auto) 0.5 Eos # (Auto) 0.1 [...] Color Urine Appearance Urine pH Ur Specific [place] Urine Protein Urine Glucose (UA) Urine Ketones [...] MPV Neut % (Auto) Lymph % (Auto) [place] % (Auto) Eos % (Auto) Baso % (Auto) Nucleat RBC Rel Count Neut # (Auto) Lymph # (Auto) [place] # (Auto) Eos # (Auto) Baso # [...] Appearance Clear Urine pH 6.5 Ur Specific [place] 1.017 Urine Protein 100 H Urine Glucose [...] % (Auto) 68.9 Lymph % (Auto) 22.6 [place] % (Auto) 6.9 Eos % (Auto) 1.1 Baso % (Auto) 0.5 Nucleat RBC Rel Count 0.2 Neut # (Auto) 6.2 Lymph # (Auto) 2.0 [place] # (Auto) 0.6 Eos # (Auto) 0.1 [...] Color Urine Appearance Urine pH Ur Specific [place] Urine Protein Urine Glucose (UA) Urine Ketones [...] MPV Neut % (Auto) Lymph % (Auto) [place] % (Auto) Eos % (Auto) Baso % (Auto) Nucleat RBC Rel Count Neut # (Auto) Lymph # (Auto) [place] # (Auto) Eos # (Auto) Baso # [...] Color Urine Appearance Urine pH Ur Specific [place] Urine Protein Urine Glucose (UA) Urine Ketones [...] MPV Neut % (Auto) Lymph % (Auto) [place] % (Auto) Eos % (Auto) Baso % (Auto) Nucleat RBC Rel Count Neut # (Auto) Lymph # (Auto) [place] # (Auto) Eos # (Auto) Baso # [...] Color Urine Appearance Urine pH Ur Specific [place] Urine Protein Urine Glucose (UA) Urine Ketones [...] <Electronically signed by MD Lawrence Kim> 08/20/[address] [place] [address] Work Phone: Consult note Author Swapnil Castillo [facility] August 20, 2022 1:14pmNote Date/TimeMarch 2022 1:13pm[place] [address] Podiatry Consult Note Signed Patient: Addie Jean Baptiste MR#: [id number] : 1975 Acct:[id number] Age/Sex: 47 / F Adm Date: 3 Loc: Room: [address] [place] [address] Type: ADM IN Attending Dr: Jeana Martini [...] <Electronically signed by LUPE Castillo> 08/20/22 1314 [facility] Work Phone: Consult note Author Shameka Romero [facility] August 21, 2022 4:02pmNote Date/TimeMarch 2022 4:00pm[place] [address] Vascular Surgery Consult Note Signed Patient: Addie Jean Baptiste MR#: [id number] : 1975 Acct:[id number] Age/Sex: 47 / F Adm Date: 3 Loc: Room: [address] [place] [address] Type: ADM IN Attending Dr: Jeana Martini MD Copies to: Laurent Franco FINISHING TECHNICIANCheC MD Jeana Robert MD~ HPI Consult HPI [...] date: 08/21/2022 Requesting Physician: Jeana Martini MD [facility] Vaccinated for COVID-19?: Yes Medical History [...] % (Auto) 69.4 Lymph % (Auto) 20.6 [place] % (Auto) 7.4 Eos % (Auto) 1.8 Baso % (Auto) 0.8 Nucleat RBC Rel Count 0.0 Neut # (Auto) 5.7 Lymph # (Auto) 1.7 [place] # (Auto) 0.6 Eos # (Auto) 0.2 [...] MPV Neut % (Auto) Lymph % (Auto) [place] % (Auto) Eos % (Auto) Baso % (Auto) Nucleat RBC Rel Count Neut # (Auto) Lymph # (Auto) [place] # (Auto) Eos # (Auto) Baso # [...] <Electronically signed by Shameka Romero MD> 08/21/22 0047 [facility] Work Phone: Discharge summary Author Jeana Martini [facility] August 22, 2022 1:35pmNote Date/TimeMarch 2022 1:30pm[place] [address] Discharge Summary Signed Patient: Addie Jean Baptiste MR#: [id number] : 1975 Acct:[id number] Age/Sex: 47 / F Adm Date: 3 Loc: Room: [address] [place] [address]: Jeana Martini MD Copies to: Laurent Franco FINISHING TECHNICIANKandi Martini MD~ Providers Date of Discharge: 08/22/22 [...] on intravenous antibiotic Patient was seen by real estate director who recommended and performed bedside incision and [...] place, time and person, morbidly obese HEENT: [place] conjunctiva and NL buccal mucosa Neck: Supple, [...] ask your primary care provider to obtain [facility] records entirely to follow up on all of the abnormal physical, laboratory, and imaging findings thatI have not addressed. Please follow-up with Dr. Romero to evaluate your circulation Please return back to the emergency room or seek medical attention if your symptoms worsen or return. Discharging you from [facility] does not mean that your medical [...] to 2 weeks. Please call for appointment.) [facility] - 08/25/22 10:15 am (Follow-up with your Primary Care Provider, call office to reschedule if needed. ) Documented By: Jeana Martini MD 08/22/22 1325 Signed By: <Electronically signed by Jeana Martini MD> 08/22/22 1335 [facility] Work Phone: Evaluation + Plan note Future Appointments Appointment Date:09/02/2021 02:45:00 PM Scheduled Provider:Milena STEVENS, Kirk Hsu [facility] Type:Cardiology New Patient (FT) Appointment Date:10/30/2021 03:40:00 PM Scheduled Provider:Breanna Gu CNP Location:[facility] Appointment Type: Open Future Scheduled Tests Laboratory* HgbA1c 07/29/21 * Microalbumin Level Urine 07/29/21 * CBC w/ Auto Diff 07/29/21 * Comprehensive Metabolic Panel 07/29/21 * Lipid Panel 07/29/21 * Thyroid Stimulating Hormone [facility]29[facility]21 [facility] Appointment Date:10/15/2021 01:00:00 PM Scheduled Provider:Nancy GUTIERREZ CNP [facility] Type:Cardiology Follow Up (FT) Appointment Date:10/30/2021 03:40:00 PM Scheduled Provider:Breanna Gu CNP Location:[facility] Appointment Type:FM Open Future Scheduled Tests Laboratory* HgbA1c 07/29/21 * Microalbumin Level Urine 07/29/21 * CBC w/ Auto Diff 07/29/21 * Comprehensive Metabolic Panel 07/29/21 * Lipid Panel 07/29/21 * Thyroid Stimulating Hormone 07/29/21 [facility] App[facility]ments Appointment Date:09/30/2021 02:00:00 PM Scheduled Provider:Breanna Gu CNP Location:[facility] Appointment Type:FM Open Appointment Date:10/15/2021 01:00:00 PM Scheduled Provider:Nancy GUTIERREZ CNP [facility] Type:Cardiology Follow Up (FT) Appointment Date:10/30/2021 03:40:00 PM Scheduled Provider:Breanna Gu CNP Location:[facility] Appointment Type:FM Open Future Scheduled Tests Laboratory* HgbA1c 07/29/21 * Microalbumin Level Urine 07/29/21 * CBC w/ Auto Diff 07/29/21 * Comprehensive Metabolic Panel 07/29/21 * Lipid Panel 07/29/21 * Thyroid Stimulating Hormone 07/29/21 Radiology* Echo Transthoracic Complete [facility]03[facility] App[facility]ments Appointment Date:10/15/2021 01:00:00 PM Scheduled Provider:Nancy GUTIERREZ CNP [facility] Type:Cardiology Follow Up (FT) Appointment Date:01/01/2022 02:00:00 PM Scheduled Provider:Breanna Gu CNP Location:[facility] Appointment Type: Open Future Scheduled Tests Laboratory* HgbA1c 09/30/21 * HgbA1c 07/29/21 * Microalbumin Level Urine 07/29/21 * CBC w/ Auto Diff 07/29/21 * Comprehensive Metabolic Panel 07/29/21 * Lipid Panel 07/29/21 * Thyroid Stimulating Hormone 09/30/21 * Thyroid Stimulating Hormone 07/29/21 Radiology* Echo Transthoracic Complete 09/03/21 [facility] Evaluation + Plan note Future Appointments Appointment Date:10/15/2021 01:00:00 PM Scheduled Provider:Nancy GUTIERREZ CNP [facility] Type:Cardiology Follow Up (FT) Appointment Date:01/01/2022 02:00:00 PM Scheduled Provider:Breanna Gu CNP Location:[facility] Appointment Type:FM Open Future Scheduled Tests Laboratory* HgbA1c 07/29/21 * Thyroid Stimulating Hormone 07/29/21 Radiology* Echo Transthoracic [facility]ments Appointment Date:10/15/2021 01:00:00 PM Scheduled Provider:Nancy GUTIERREZ CNP [facility] Type:Cardiology Follow Up (FT) Appointment Date:01/01/2022 02:00:00 PM Scheduled Provider:Breanna Gu CNP Location:[facility] Appointment Type:FM Open Future Scheduled Tests Laboratory* HgbA1c 07/29/21 * Thyroid Stimulating Hormone 07/29/21 Radiology* NM Myocardial Spect Rest/Stress 1 Day 10/07/21 * Echo Transthoracic [facility]03[facility] App[facility]ments Appointment Date:11/14/2021 12:15:00 PM Scheduled Provider: [facility] Appointment Type:NM Myocard Spect Multi Rest/Stress-Res Appointment Date:11/14/2021 01:15:00 PM Scheduled Provider: [facility] Appointment Type:NM Myocard Spect Multi Rest/Stress - R Appointment Date:11/14/2021 01:45:00 PM Scheduled Provider: [facility] Appointment Type:NM Myocard Spect Multi Rest/Stress-Str Appointment Date:11/14/2021 02:45:00 PM Scheduled Provider: [facility] Appointment Type:NM Myocar Spect Multi Rest/Stress - St Appointment Date:11/20/2021 11:45:00 AM Scheduled Provider:Yuriy Fraser MD [facility] Type:Cardiology Follow Up (FT) Appointment Date:01/01/2022 02:00:00 PM Scheduled Provider:Breanna Gu CNP Location:[facility] Appointment Type:FM Open Diagnostic Tests Pending * Urine Culture 10/30/21 Future Scheduled Tests Laboratory* Fecal WBC Lactoferrin 10/30/21 * HgbA1c 07/29/21 * Enteric Panel by PCR 10/30/21 * Thyroid Stimulating Hormone 07/29/21 Radiology* NM Myocardial Spect Rest/Stress 1 Day 11/14/21 * Echo Transthoracic [facility]03[facility] App[facility]ments Appointment Date:11/20/2021 11:45:00 AM Scheduled Provider:Yuriy Fraser MD [facility] Type:Cardiology Follow Up (FT) Appointment Date:12/02/2021 10:00:00 AM Scheduled Provider:Breanna Gu CNP Location:[facility] Appointment Type: ER/Hospital Follow Up Appointment Date:01/01/2022 02:00:00 PM Scheduled Provider:Breanna Gu CNP Location:[facility] Appointment Type: Open Future Scheduled Tests Laboratory* Fecal WBC Lactoferrin 10/30/21 * HgbA1c 07/29/21 * Enteric Panel by PCR 10/30/21 * Thyroid Stimulating Hormone 07/29/21 Radiology* Echo Transthoracic [facility]03[facility] App[facility]ments Appointment Date:12/02/2021 10:00:00 AM Scheduled Provider:Breanna Gu CNP Location:[facility] Appointment Type: ER/Hospital Follow Up Appointment Date:01/01/2022 02:00:00 PM Scheduled Provider:Breanna Gu CNP Location:[facility] Appointment Type: Open Future Scheduled Tests Laboratory* Fecal WBC Lactoferrin 10/30/21 * HgbA1c 07/29/21 * Enteric Panel by PCR 10/30/21 * Thyroid Stimulating Hormone 07/29/21 Radiology* Echo Transthoracic Complete [facility]03[facility] App[facility]ments Appointment Date:12/16/2021 08:30:00 AM Scheduled Provider: [facility] Appointment Type:NM Myocard Spect Multi Rest/Stress-Res Appointment Date:12/16/2021 09:30:00 AM Scheduled Provider: [facility] Appointment Type:NM Myocard Spect Multi Rest/Stress - R Appointment Date:12/16/2021 10:00:00 AM Scheduled Provider: [facility] Appointment Type:NM Myocard Spect Multi Rest/Stress-Str Appointment Date:12/16/2021 11:00:00 AM Scheduled Provider: Location:[facility] Appointment Type:NM Myocar Spect Multi Rest/Stress - St Appointment Date:01/01/2022 02:00:00 PM Scheduled Provider:Breanna Gu CNP Location:[facility] Appointment Type: Open Future Scheduled Tests Laboratory* Fecal WBC Lactoferrin 10/30/21 * HgbA1c 07/29/21 * Enteric Panel by PCR 10/30/21 * Thyroid Stimulating Hormone 07/29/21 Radiology* NM Myocardial Spect Rest/Stress 1 Day 12/16/21 * Echo Transthoracic Complete 09/03/21 [facility] Evaluation + Plan note Future Appointments Appointment Date:01/01/2022 02:00:00 PM Scheduled Provider:Breanna Gu CNP Location:[facility] Appointment Type:FM Open Future Scheduled Tests Laboratory* Fecal WBC Lactoferrin 10/30/21 * HgbA1c 07/29/21 * Enteric Panel by PCR 10/30/21 * Thyroid Stimulating Hormone 07/29/21 Radiology* NM Myocardial Spect Rest/Stress 1 Day 12/16/21 * Echo Transthoracic Complete [facility]03/21 [facility] Diagnosis Other insomnia- Primary documented in this encounter [facility] Work Phone: evaluation note* Diagnosis Onset Date Resolution Status Diabetic foot infection acuteHypertensionacuteHypokalemiaacuteHypomagnesemiaacute [facility] Work Phone: Evaluation note* Diagnosis Onset Date Resolution Status Abscess of toenail on left foot acuteCellulitis of left [id number] foot infection acuteHypertensionacuteHypokalemiaacuteHypomagnesemiaacuteHypophosphatemiaacute OnychocryptosisacutePeripheral vascular diseaseacuteToe infectionacuteToe pain, leftacuteDiabeteschronicNicotine dependencechronic [facility] Work Phone: Evaluation noteNo [facility] Other Evaluation note* Diagnosis Weakness of lower extremity, unspecified laterality- Primary Urinary incontinence, unspecified type Saddle anesthesia Disturbance of skin sensation Type 2 diabetes mellitus with diabetic neuropathy, unspecified whether alf insulin use ([facility]) documented in this encounter [facility] note* Diagnosis Right knee pain, unspecified chronicity- Primary documented in this encounter [facility] note* Diagnosis Strain of right hamstring, initial encounter- Primary Strain of right knee, initial encounter Other specified diabetes mellitus with other specified complication, unspecified 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 exterminator insulin use ([facility]) documented in this encounter [facility] note* Diagnosis Chest pain, unspecified type- Primary Chest pain, unspecified type Flank pain Abdominal pain, unspecified site Type 2 diabetes mellitus with other specified complication, unspecified whether alf insulin use ([facility]) Seizure ([facility]) Other convulsions documented in this encounter [facility] note* Diagnosis Chest pain- Primary Unspecified chest pain Chest pain, unspecified type Diabetic peripheral neuropathy (HCC) Type II or unspecified type diabetes mellitus with neurological manifestations, not stated as uncontrolled Seizure disorder ([facility]) Unspecified epilepsy without mention of intractable epilepsy Morbid obesity (HCC) Morbid obesity Seizure (HCC) Other convulsions Seizures (HCC) Other convulsions Bipolar 1 disorder ([facility]) Diabetic infection of left foot ([facility]) Metabolic acidosis, normal anion gap (NAG) Acidosis SOLO (acute kidney injury) ([facility]) Abscess of chin Cellulitis and abscess of face Pacemaker Cardiac pacemaker in situ History of MRSA infection Hypertension, unspecified type Cellulitis of chin Cellulitis and abscess of face documented in this encounter [facility] note* Diagnosis Non-recurrent acute suppurative otitis media of left ear without spontaneous rupture of tympanic membrane- Primary Type 2 diabetes mellitus with diabetic polyneuropathy, with long-term current use of insulin ([facility]) Diabetic ulcer of right foot associated with type 2 diabetes mellitus, unspecified part of foot, unspecified ulcer stage ([facility]) Diabetic peripheral neuropathy ([facility]) Type II or unspecified type diabetes mellitus with neurological manifestations, not stated as uncontrolled Hypertensive urgency Chronic obstructive pulmonary disease, unspecified COPD type (HCC) Chronic chest pain Unspecified chest pain S/P placement of cardiac pacemaker Hypothyroidism, unspecified type Seizures (HCC) Other convulsions Bipolar 1 disorder ([facility]) Insomnia, unspecified type Gastroesophageal reflux disease, [...] both lower extremities [facility] Diagnosis Pain of left lower leg- Primary Pain in limb [facility] Diagnosis Muscle spasms of both [...] Right foot ulcer, with fat layer exposed ([facility])- Primary [facility]* Diagnosis Chronic pain syndrome- Primary Muscle spasms of both lower extremities Urinary incontinence, unspecified type Chronic nonintractable headache, unspecified headache type Chronic obstructive pulmonary disease, unspecified COPD type (HCC) Type 2 diabetes mellitus with diabetic polyneuropathy, with long-term current use of insulin ([facility]) Diabetic peripheral neuropathy ([facility]) Type II or unspecified type diabetes mellitus with neurological manifestations, not stated as uncontrolled Diabetic ulcer of right foot associated with type 2 diabetes mellitus, unspecified part of foot, unspecified ulcer stage ([facility]) Hypothyroidism, unspecified type Primary hypertension Unspecified essential hypertension Hypercholesterolemia Pure hypercholesterolemia S/P placement of cardiac pacemaker Seizures ([facility]) Other convulsions Bipolar 1 disorder ([facility]) Gastroesophageal reflux disease, unspecified whether esophagitis present Vitamin D deficiency Vitamin B12 deficiency Other B-complex deficiencies Cigarette nicotine dependence without complication [facility]* Diagnosis Muscle spasms of both lower extremities [facility]* Diagnosis Bipolar 1 disorder ([facility])- Primary Post traumatic stress disorder (PTSD) Generalized anxiety disorder Insomnia, unspecified type [facility]* Diagnosis Primary hypertension- Primary Unspecified essential hypertension Subacute cough RUQ abdominal pain Abdominal pain, right upper quadrant Type 2 diabetes mellitus with diabetic polyneuropathy, with long-term current use of insulin ([facility]) Family history of pulmonary fibrosis [facility]* Diagnosis Subacute cough- Primary Family history of pulmonary fibrosis [facility]* Diagnosis Vision loss of left eye- [...] insufficiency, unspecified [facility] Diagnosis Muscle spasms of both lower extremities Type 2 diabetes mellitus with diabetic polyneuropathy, with long-term current use of insulin ([facility]) [facility]* [...] polyneuropathy, with long-term current use of insulin ([facility]) [facility]* [...] polyneuropathy, with long-term current use of insulin ([facility]) [facility]* Diagnosis Diabetic ulcer of right foot associated with type 2 diabetes mellitus, unspecified part of foot, unspecified ulcer stage ([facility])- Primary Primary hypertension Unspecified essential hypertension SOLO (acute kidney injury) ([facility]) Hypothyroidism, unspecified type Hyperlipidemia, unspecified hyperlipidemia [...] [facility]* Diagnosis Bipolar 1 disorder ([facility]) Insomnia, unspecified type documented in this [...] polyneuropathy, with long-term current use of insulin ([facility]) Chronic obstructive pulmonary disease, unspecified COPD type ([facility]) Hypothyroidism, unspecified type History of stroke Transient ischemic attack (TIA), and cerebral infarction without residual deficits Seizures ([facility]) Other convulsions Hypercholesterolemia Pure hypercholesterolemia Chronic pain syndrome Urinary incontinence, unspecified type Bipolar 1 disorder ([facility]) Insomnia, unspecified type Gastroesophageal reflux disease, [...] myalgia and myositis [facility]* Diagnosis Cellulitis of chin- Primary Cellulitis [...] of left foot documented [facility]* Diagnosis Cellulitis of chin- [...] whether esophagitis present [facility] Diagnosis Cellulitis of chin- Primary Cellulitis [...] Chronic pain syndrome [facility]* Diagnosis Cellulitis of chin- Primary Cellulitis [...] in this [facility] noteNo assessment information availableL[facility] Work Phone: Evaluation note* Diagnosis Cellulitis [...] appointment- Primary [facility]* Diagnosis Cellulitis of chin- Primary Cellulitis and abscess of face Cellulitis Cellulitis and abscess of unspecified site Hyperglycemia Other abnormal glucose Severe sepsis (HCC) Type 2 diabetes mellitus with left diabetic foot infection (HCC) Diabetic infection of left foot (HCC) Abscess of chin Cellulitis and abscess of face Hypertension Unspecified essential hypertension Bipolar 1 disorder ([facility]) Seizures ([facility]) Other convulsions DDD (degenerative disc disease), lumbar Degeneration of lumbar or lumbosacral intervertebral disc Lumbar radiculopathy Thoracic or lumbosacral neuritis or radiculitis, unspecified Chronic pain syndrome [facility]* Diagnosis Sudden loss of vision- Primary Sudden visual loss HHS (hypothenar hammer syndrome) Hyperosmolar hyperglycemic state (HHS) ([facility]) Hyperosmolar hyperglycemic state (HHS) ([facility]) SOLO (acute kidney injury) HHS (hypothenar hammer syndrome) [facility]* Diagnosis Cellulitis of [...] or radiculitis, unspecified [facility]* Diagnosis Type 2 diabetes mellitus with hyperglycemia, with long-term current use of insulin ([facility])- Primary Encounter for dietary consultation Insulin long-term use ([facility]) Encounter for long-term (current) use of insulin Class 3 severe obesity due to excess calories with serious comorbidity and body mass index (BMI) of45.0 to 49.9 in adult ([facility]) Hyperlipemia, mixed Mixed hyperlipidemia Vitamin D deficiency Primary hypertension Unspecified essential hypertension Encounter for fitting or adjustment of insulin pump Fitting and adjustment of insulin pump [facility] Diagnosis Onset Date Resolution Status Admit Date BMI 50.0-59.9, adult acuteSeptember 2024 9:44amEssential hypertensionacuteSept2024 9:44amMixed hyperlipidemiaacuteSept2024 9:44amMorbid obesity due to excess caloriesacutept2024 9:44amNicotine use disorderacute February 20, 2025 9:44amNoncompliance with medicationsacuteFebruary 20, 2025 9:44amPeripheral vascular diseaseacuteSept2024 9:44amType 2 diabetes mellitus with circulatory disorder, with long-term currentacute February 20, 2025 9:44amBipolar 1 disorderchronicSeptember 2024 9:44am [facility] Work Phone: Evaluation note* Diagnosis Cellulitis of [...] lower extremity pain [facility]* Diagnosis Cellulitis of chin- Primary Cellulitis [...] [facility] Author Ezekiel Mathew [facility] August 20, 2022 3:56amNote Date/TimeMarch 2022 3:56[place] [address] Hospitalist H&P Signed Patient: Addie Jean Baptiste MR#: [id number] : 1975 Acct:[id number] Age/Sex: 47 / F Adm Date: 3 Loc: Room: [address] [place] [address] Type: ADM INOo Attending Dr: Ezekiel Mathew [...] % (Auto) 27.3 % (.) 08/20/22 00:19 [place] % (Auto) 6.0 % (.) 08/20/22 00:19 Eos % (Auto) 1.3 % (.) 08/20/22 00:19 Baso % (Auto) 0.7 % (.) 08/20/22 00:19 Nucleat RBC Rel Count 0.0 /100 WBC (0-0.5) 08/20/22 00:19 Neut # (Auto) 5.5 x10E3/uL (1.8-7.7) 08/20/22 00:19 Lymph # (Auto) 2.3 x10E3/uL (1.00-4.8) 08/20/22 00:19 [place] # (Auto) 0.5 x10E3/uL (0.0-0.8) 08/20/22 00:19 [...] pH 6.5 (5.0-9.0) 08/20/22 01:07 Ur Specific [place] 1.017 (1.001-1.030) 08/20/22 01:07 Urine Protein 100 [...] She states that 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 Box. Since his partner Dr. [...] signed by Ezekiel Mathew, DO> 08/20/22 0356 [facility] Work Phone: History general Narrative - Reported* Type Description Date Medical History bipolar Medical HistorydepressionMedical Historycoronary artery diseaseMedical History seizuresMedical [id number] HistoryHLPMedical HistorypacemakerMedical HistoryMRSAMedical Historyherniated discMedical HistoryHypertentionMedical Historystomach ulcersMedical Historydiabetes type 2Medical Historydiabetic neuropathySurgical Historyankle surgerySurgical HistoryhysterectomySurgical HistorycholecystectomySurgical Historywisdom teethSurgical Historypacemaker Surgical Historyportacath placementHospitalization Historysee above Hospitalization HistoryChest Pain3/[facility]Hospitalization HistoryBellev [id number] History Seizures-2018 [place] Other History general Narrative - Reported* Type Description Date Medical History bipolar Medical HistorydepressionMedical Historycoronary artery diseaseMedical History seizuresMedical [id number] HistoryHLPMedical HistorypacemakerMedical HistoryMRSAMedical Historyherniated discMedical HistoryHypertentionMedical Historystomach ulcersMedical Historydiabetes type 2Medical Historydiabetic neuropathyMedical HistoryhypothryoidSurgical Historyankle surgerySurgical HistoryhysterectomySurgical HistorycholecystectomySurgical Historywisdom teeth Surgical HistorypacemakerSurgical Historyportacath placementHospitalization Historysee aboveHospitalization HistoryChest Pain3/2012[facility] History[facility]/2013Hospitalization HistoryBellashtabula county medical [id number] HistorySeizures-2018Hospitalization Historytoe infection08/2022 [place] Other Hospital course Narrative No data available for this section [facility] No data available for this section [facility] Discharge instructions* Attachments The following attachments cannot be sent through Care Everywhere. * Insomnia (Qatari) * Video: Sleeping Better (Qatari) * Video: Sleep and Your Health (Qatari) * Video: When You're Not Sleeping Well (Qatari) [facility] Work Phone: Hospital Discharge instructions Additional Instructions Please follow up with your nurse practitioner re: blood sugars and Aicd evaluation. Call Dr. Romero's office to reschedule and to schedule a PST appointment before surgery.[facility] Work Phone: Hospital Discharge instructions* Attachments The following attachments cannot be sent through Care Everywhere. * Toe Amputation: Post-op (Qatari) documented [facility] Discharge instructions Additional [...] with any concerns. Thank you for choosing [facility] Work Phone: InstructionsNot on filedocumented in this encounter [facility] SystemPatient[facility] home Plan of care note* Visit Type -SN HH OASIS Start of Care Discipline -Long Term ProblemStart DateStatusGoalsInterventions Psychosocial Health Disciplines: Long Term 04/01/2023 Active 1 goal linked to scheduled/documented intervention 1 goal intervention scheduled/documented in this visit Neurological Disciplines: Long Term 04/01/2023 Active 1 goal linked to scheduled/documented intervention 1 goal intervention scheduled/documented in this visit Respiratory Disciplines: Long Term 04/01/2023 Active 1 goal linked to scheduled/documented intervention 1 goal intervention scheduled/documented in this visit Cardiac Disciplines: Long Term 04/01/2023 Active 1 goal linked to scheduled/documented intervention 1 goal intervention scheduled/documented in this visit Diabetes Disciplines: Long Term 04/01/2023 Active 1 goal linked to scheduled/documented intervention 1 goal intervention scheduled/documented in this visit Assess and Instruct Home Visit Disciplines: Long Term 04/01/2023 Active 1 goal linked to scheduled/documented intervention 3 goal interventions scheduled/documented in this visit Medication Management Disciplines: Long Term 04/01/2023 Active 1 goal linked to scheduled/documented intervention 1 goal intervention scheduled/documented in this visit Pain Management Disciplines: Long Term 04/01/2023 Active 1 goal linked to scheduled/documented intervention 1 goal intervention scheduled/documented in this visit Assess POC Synopsis Disciplines: Long Term 04/01/2023 Active 2 goals linked to scheduled/documented [...] Problem:Psychosocial Health Goal:Depression Completed Patient reports: see b operator taught: patient Clinician instructed on: follow current [...] Medication education completed today on medlist from [facility] medication(s). Patient/caregiver is able to teach back 25% of instruction. Patient to hand picker meds from pharmacy and follow medlist [...] interest in teaching [facility] Plan of care note* Visit Type -SN HH OASIS Start of Care Discipline -Long Term ProblemStart DateStatusGoalsInterventions Psychosocial Health Disciplines: Long Term 04/01/2023 Active 1 goal linked to scheduled/documented intervention 1 goal intervention scheduled/documented in this visit Neurological Disciplines: Long Term 04/01/2023 Active 1 goal linked to scheduled/documented intervention 1 goal intervention scheduled/documented in this visit Respiratory Disciplines: Long Term 04/01/2023 Active 1 goal linked to scheduled/documented intervention 1 goal intervention scheduled/documented in this visit Cardiac Disciplines: Long Term 04/01/2023 Active 1 goal linked to scheduled/documented intervention 1 goal intervention scheduled/documented in this visit Diabetes Disciplines: Long Term 04/01/2023 Active 1 goal linked to scheduled/documented intervention 1 goal intervention scheduled/documented in this visit Assess and Instruct Home Visit Disciplines: Long Term 04/01/2023 Active 1 goal linked to scheduled/documented intervention 3 goal interventions scheduled/documented in this visit Medication Management Disciplines: Long Term 04/01/2023 Active 1 goal linked to scheduled/documented intervention 1 goal intervention scheduled/documented in this visit Pain Management Disciplines: Long Term 04/01/2023 Active 1 goal linked to scheduled/documented intervention 1 goal intervention scheduled/documented in this visit Assess POC Synopsis Disciplines: Long Term 04/01/2023 Active 2 goals linked to scheduled/documented [...] Problem:Psychosocial Health Goal:Depression Completed Patient reports: see b operator taught: patient Clinician instructed on: follow current [...] teach back 25% of instruction. Patient to hand picker meds from pharmacy and follow medlist [...] interest in teaching [facility] Visit Type -SN HH OASIS Start of Care Discipline -Long Term ProblemStart DateStatusGoalsInterventions Psychosocial Health Disciplines: Long Term 04/01/2023 Active 1 goal linked to scheduled/documented intervention 1 goal intervention scheduled/documented in this visit Neurological Disciplines: Long Term 04/01/2023 Active 1 goal linked to scheduled/documented intervention 1 goal intervention scheduled/documented in this visit Respiratory Disciplines: Long Term 04/01/2023 Active 1 goal linked to scheduled/documented intervention 1 goal intervention scheduled/documented in this visit Cardiac Disciplines: Long Term 04/01/2023 Active 1 goal linked to scheduled/documented intervention 1 goal intervention scheduled/documented in this visit Diabetes Disciplines: Long Term 04/01/2023 Active 1 goal linked to scheduled/documented intervention 1 goal intervention scheduled/documented in this visit Assess and Instruct Home Visit Disciplines: Long Term 04/01/2023 Active 1 goal linked to scheduled/documented intervention 3 goal interventions scheduled/documented in this visit Medication Management Disciplines: Long Term 04/01/2023 Active 1 goal linked to scheduled/documented intervention 1 goal intervention scheduled/documented in this visit Pain Management Disciplines: Long Term 04/01/2023 Active 1 goal linked to scheduled/documented intervention 1 goal intervention scheduled/documented in this visit Assess POC Synopsis Disciplines: Long Term 04/01/2023 Active 2 goals linked to scheduled/documented [...] Problem:Psychosocial Health Goal:Depression Completed Patient reports: see b operator taught: patient Clinician instructed on: follow current [...] Medication education completed today on medlist from [facility] medication(s). Patient/caregiver is able to teach back 25% of instruction. Patient to hand picker meds from pharmacy and follow medlist [...] interest in teaching [facility] Visit Type -SN HH OASIS Start of Care Discipline -Long Term ProblemStart DateStatusGoalsInterventions Psychosocial Health Disciplines: Long Term 04/01/2023 Active 1 goal linked to scheduled/documented intervention 1 goal intervention scheduled/documented in this visit Neurological Disciplines: Long Term 04/01/2023 Active 1 goal linked to scheduled/documented intervention 1 goal intervention scheduled/documented in this visit Respiratory Disciplines: Long Term 04/01/2023 Active 1 goal linked to scheduled/documented intervention 1 goal intervention scheduled/documented in this visit Cardiac Disciplines: Long Term 04/01/2023 Active 1 goal linked to scheduled/documented intervention 1 goal intervention scheduled/documented in this visit Diabetes Disciplines: Long Term 04/01/2023 Active 1 goal linked to scheduled/documented intervention 1 goal intervention scheduled/documented in this visit Assess and Instruct Home Visit Disciplines: Long Term 04/01/2023 Active 1 goal linked to scheduled/documented intervention 3 goal interventions scheduled/documented in this visit Medication Management Disciplines: Long Term 04/01/2023 Active 1 goal linked to scheduled/documented intervention 1 goal intervention scheduled/documented in this visit Pain Management Disciplines: Long Term 04/01/2023 Active 1 goal linked to scheduled/documented intervention 1 goal intervention scheduled/documented in this visit Assess POC Synopsis Disciplines: Long Term 04/01/2023 Active 2 goals linked to scheduled/documented [...] Problem:Psychosocial Health Goal:Depression Completed Patient reports: see b operator taught: patient Clinician instructed on: follow current [...] teach back 25% of instruction. Patient to hand picker meds from pharmacy and follow medlist [...] interest in teaching [facility] Visit Type -ELIGIBILITY CONSULTANT Missed Visit Discipline -Home Health Aide ProblemStart [...] Goal:Hygiene/Safety Scheduled documented [facility]* Visit [...] Plan Scheduled documented in this encounter [facility] Plan of care [facility]* Visit Type -DENTAL HYGIENE ADMINISTRATIVE ASSISTANT Routine Discipline -Long Term ProblemStart DateStatusGoalsInterventions Assess and Instruct Home Visit Disciplines: Long Term 04/01/2023 Active 1 goal linked to scheduled/documented intervention 4 goal interventions scheduled/documented in this visit Medication Management Disciplines: Long Term 04/01/2023 Active 1 goal linked to scheduled/documented intervention 1 goal intervention scheduled/documented in this visit Pain Management Disciplines: Long Term 04/01/2023 Active 1 goal linked to scheduled/documented [...] Management Goal:Pain Completed [facility] Visit Type -ELIGIBILITY CONSULTANT Home Visit Discipline -Home Health Aide ProblemStart [...] Goal:Hygiene/Safety Completed [facility] Visit Type -ELIGIBILITY CONSULTANT Home Visit Discipline -Home Health Aide ProblemStart [...] Goal:Hygiene/Safety Completed documented in [facility]* Visit Type -PATIENT RESOURCE SPECIALIST Routine Visit Discipline -Physical Therapy ProblemStart DateStatusGoalsInterventions [...] prevention as well. documented [facility] Visit Type -SN HH Routine Visit Discipline -Long Term ProblemStart DateStatusGoalsInterventions Psychosocial Health Disciplines: Long Term 04/01/2023 Active 1 goal linked to scheduled/documented intervention 1 goal intervention scheduled/documented in this visit Neurological Disciplines: Long Term 04/01/2023 Active 1 goal linked to scheduled/documented intervention 1 goal intervention scheduled/documented in this visit Respiratory Disciplines: Long Term 04/01/2023 Active 1 goal linked to scheduled/documented intervention 1 goal intervention scheduled/documented in this visit Cardiac Disciplines: Long Term 04/01/2023 Active 1 goal linked to scheduled/documented intervention 1 goal intervention scheduled/documented in this visit Diabetes Disciplines: Long Term 04/01/2023 Active 1 goal linked to scheduled/documented intervention 1 goal intervention scheduled/documented in this visit Assess and Instruct Home Visit Disciplines: Long Term 04/01/2023 Active 1 goal linked to scheduled/documented intervention 4 goal interventions scheduled/documented in this visit Medication Management Disciplines: Long Term 04/01/2023 Active 1 goal linked to scheduled/documented intervention 1 goal intervention scheduled/documented in this visit Pain Management Disciplines: Long Term 04/01/2023 Active 1 goal linked to scheduled/documented intervention 1 goal intervention scheduled/documented in this visit Assess POC Synopsis Disciplines: Long Term 04/01/2023 Active 2 goals linked to scheduled/documented interventions 2 goal interventions scheduled/documented in this visit Wound Care and/or Skin Problems Disciplines: Long Term 04/15/2023 Active 1 goal linked to scheduled/documented [...] getting set up in dose packs from [facility]. Assess Pain Characteristics and Current Pain [...] home Plan of care note* Visit Type -ELIGIBILITY CONSULTANT Missed Visit Discipline -Home Health Aide ProblemStart [...] Goal:Hygiene/Safety Scheduled [facility] Visit Type -SN Missed Visit Discipline -Long Term ProblemStart DateStatusGoalsInterventions Assess and Instruct Home Visit Disciplines: Long Term 04/01/2023 Active 1 goal linked to scheduled/documented intervention 3 goal interventions scheduled/documented in this visit Medication Management Disciplines: Long Term 04/01/2023 Active 1 goal linked to scheduled/documented intervention 1 goal intervention scheduled/documented in this visit Pain Management Disciplines: Long Term 04/01/2023 Active 1 goal linked to scheduled/documented intervention 1 goal intervention scheduled/documented in this visit Wound Care and/or Skin Problems Disciplines: Long Term 04/15/2023 Active 1 goal linked to scheduled/documented [...] Problems Goal:Wound/Incision Scheduled [facility] Visit Type -PATIENT RESOURCE SPECIALIST Missed Visit Discipline -Physical Therapy ProblemStart DateStatusGoalsInterventions [...] Plan Scheduled documented in this [facility]* Visit [...] Plan Scheduled documented in this [facility]* Visit Type -SN HH OASIS Discharge Discipline -Long Term ProblemStart DateStatusGoalsInterventions Assess and Instruct Home Visit Disciplines: Long Term 04/01/2023 Active 1 goal linked to scheduled/documented intervention 3 goal interventions scheduled/documented in this visit Medication Management Disciplines: Long Term 04/01/2023 Active 1 goal linked to scheduled/documented intervention 1 goal intervention scheduled/documented in this visit Pain Management Disciplines: Long Term 04/01/2023 Active 1 goal linked to scheduled/documented intervention 1 goal intervention scheduled/documented in this visit Wound Care and/or Skin Problems Disciplines: Long Term 04/15/2023 Active 1 goal linked to scheduled/documented [...] Goal:Wound/Incision Scheduled documented in this [facility] of care [facility]* Visit Type -PATIENT RESOURCE SPECIALIST Missed Visit Discipline -Physical Therapy ProblemStart DateStatusGoalsInterventions [...] Plan Scheduled [facility]* Clinical update including pain/vitals/ no meds in home to PCPDr.Shuh on office phone.documented [facility]* Clinical update including pain/vitals/ no meds in home to PCPDr.Shuh on office phone.documented [facility]* Clinical update including pain/vitals/ no meds in home to PCPDr.Shuh on office phone.documented [facility]* Clinical update including pain/vitals/ no meds in home to PCPDr.Shuh on office phone.documented [facility]* Per SN SOC: HISTORY OF PRESENT ILLNESS LEADING UP TO HOME CARE ADMISSION (including facility stays and dates): [facility] [place] for: Atypical chest pain, resolved Elevated troponin, chronic - to follow up outpatient with cardiology T2DM, uncontrolled Diabetic peripheral neuropathy obesity seizure disorder Side/site of body affected (dominant hand if neuro diagnosis): cardiac Comorbidities with potential to affect the Plan of Care: DM and CAD Additional Disciplines requested: none Disciplines referred and declined by patient/caregiver: agreeable to all ordered services: SN,PT,OT,ELIGIBILITY CONSULTANT Prior functional level: indpendent with adls/ questionable management of meds as none in home at time of admission/dependent for iadls Current functional level: needs assist with learning meds/disease process Fall Risk: MAHC-10 score 7, 4-10 Patient IS at risk for falls (a score of 6 or greater is a predictor of future falls) Medication Issues: no meds in home, patient agreed to hand picker all meds from pharmacy on day [...] [facility] Clinical Summary Patient s goals for HomeCare: Be stronger What skill(s) will be provided by your discipline: ADL retraining, ther exercises, ther activity Rehab Potential: good HISTORY OF PRESENT ILLNESS LEADING UP TO HOME CARE ADMISSION (including facility stays and dates): [facility] [place]29-03/[place]/23 for: Atypical chest pain, resolved elevated [...] PT non-billable discharge completed.documented [facility] this [facility] No data available for this section [facility] HospitalProgress [facility] Author Jeana Martini [facility] August 20, 2022 9:48amNote Date/TimeMarch 2022 9:48am[place] [id number] Hospitalist Progress Note Signed Patient: Addie Jean Baptiste MR#: [id number] : 1975 Acct:[id number] Age/Sex: 47 / F Adm Date: 3 Loc: Room: [address] [place] [address] Type: ADM INOo Attending Dr: Jeana Martini [...] place, time and person, morbidly obese HEENT: [place] conjunctiva and NL buccal mucosa Neck: Supple, [...] <Electronically signed by Jeana Martini MD> 08/20/2248 [facility] Work Phone: Progress note Author Jeana [facility] August 21, 2022 10:10amNote Date/TimeMarch 2022 10:10am[place] [address] Hospitalist Progress Note Signed Patient: Addie Jean Baptiste MR#: [id number] : 1975 Acct:[id number] Age/Sex: 47 / F Adm Date: 3 Loc: 3T Room: [address] [place] [address] Type: ADM IN Attending Dr: Jeana Martini [...] place, time and person, morbidly obese HEENT: [place] conjunctiva and NL buccal mucosa Neck: Supple, [...] signed by Jeana Martini MD> 08/21/22 1010 [facility] Work Phone: Progress note Author Lawrence Kim [facility] August 21, 2022 11:22amNote Date/TimeMarch 2022 11:22[place] [address] Infect. Disease Progress Note Signed Patient: Addie Jean Baptiste MR#: [id number] : 1975 Acct:[id number] Age/Sex: 47 / F Adm Date: 3 Loc: Room: [address] [place] [address] Type: ADM IN Attending Dr: Jeana Martini [...] 5 Mg Tablet) 5 mg PO DAILY [facility] Stop: 08/20/23 09:39 Last Admin: [...] (50,000 Units) Capsule) 1,250 mcg PO Q7D [facility] Stop: 08/20/23 09:44 Last Admin: 08/20/22 14:44 Dose: Not Given Furosemide (Furosemide 20 Mg Tablet) 20 mg PO DAILY.8A [facility] Stop: 08/20/23 07:59 Last Admin: [...] 300 Units/3 Ml Insuln.Pen) 0 units SUBCUT TID.WM.[facility]; Protocol Stop: 08/20/23 11:59 Last Admin: 08/21/22 09:03 Dose: Not Given Levetiracetam (Levetiracetam 250 Mg Tablet) 750 mg PO BID [facility] Stop: 08/20/23 08:59 Last Admin: 08/21/22 08:59 Dose: 750 mg Levothyroxine Sodium (Levothyroxine 75 Mcg Tablet) 75 mcg PO DAILY@0630 [facility] Stop: 08/20/23 06:29 Last Admin: 08/21/22 06:09 Dose: 75 mcg Lisinopril (Lisinopril 40 Mg Tablet) 40 mg PO DAILY [facility] Stop: 08/20/23 08:59 Last Admin: 08/21/22 09:01 Dose: 40 mg Metformin HCl (Metformin 500 Mg Tablet) 1,000 mg PO BID.WITH.MEALS [facility] Stop: 08/20/23 07:59 Last Admin: 08/21/22 09:00 Dose: 1,000 mg Pantoprazole Sodium (Pantoprazole 40 Mg Tablet.Dr) 40 mg PO DAILY [facility] Stop: 08/21/23 08:59 Last Admin: 08/21/22 09:01 Dose: 40 mg Pregabalin (Pregabalin 150 Mg Capsule) 150 mg PO [facility] Stop: 02/16/23 03:44 Last Admin: 08/20/22 21:12 Dose: 150 mg Quetiapine Fumarate (Quetiapine Fumarate 200 Mg Tablet) 800 mg PO [facility] Stop: 08/20/23 03:59 Last Admin: 08/20/22 21:12 Dose: 800 mg Saccharomyces Boulardii (Saccharomyces Boulardii 250 Mg Capsule) 250 mg PO BID.WITH.MEALS [facility] Stop: 08/20/23 07:59 Last Admin: [...] signed by MD Lawrence Kim> 08/21/22 1122 [facility] Work Phone: Progress note Author Jeana Martini [facility] August 22, 2022 9:54amNote Date/TimeMarch 2022 9:55am[place] [address] Hospitalist Progress Note Signed Patient: Addie Jean Baptiste MR#: [id number] : 1975 Acct:[id number] Age/Sex: 47 / F Adm Date: 3 Loc: Room: [address] [place] [address] Type: ADM IN Attending Dr: Jeana Martini [...] place, time and person, morbidly obese HEENT: [place] conjunctiva and NL buccal mucosa Neck: Supple, [...] Insuln.Pen SUBCUT 08/20/23 11:59 Not Given TID.WM.HS [facility] Protocol Levetiracetam 750 mg 08/20/22 [...] <Electronically signed by Jeana Martini MD> 08/22/22953 [facility] Work Phone: Progress note Author Shameka Romero [facility] August 22, 2022 9:56amNote Date/TimeMarch 2022 9:56[place] [address] Vascular Surgery Progress Note Signed Patient: Addie Jean Baptiste MR#: [id number] : 1975 Acct:[id number] Age/Sex: 47 / F Adm Date: 3 Loc: Room: [address] [place] [address] Type: ADM IN Attending Dr: Jeana Martini [...] foot. We did bring the patient down [facility] special suite and placed her [facility] angiography table. She is extremely anxious [...] signed by Shameka Romero MD> 08/22/22 0956 [facility] Work Phone: Reason for referral (narrative)* Consultation (Routine) - New RequestSpecialtyDiagnoses / ProceduresReferred By Contact Referred To [facility] Sports Diagnoses Pain of left lower leg Tonia Ridley APRN-CNP [address] [place] [id number] Referral IDStatusMikaelaAdvance DateExpiration DateVisits RequestedVisits [id number] Request/ [facility] HospitalReason for referral (narrative)No reason for referral information availableMercy Health [facility] Work Phone: Reason for visit Narrativewondering about R/S for procedurePlac[place] OneCard Other Reason for visit Narrative* Auth/CertSpecialty Diagnoses / ProceduresReferred By ContactReferred To Contact Diagnoses Sudden vision loss Vanessa Vargas MD [address] [facility] [address] [place] [address] Phone: tel: fax: Referral IDStatusReasonAdvance DateExpiration DateVisits RequestedVisits [id number] [facility] Assessments DiagnosisAcute exacerbation of chronic [...] and Living Will07/08/2023 8:24 PMDate ActivatedDate Inactivated Talxokrn74/17/2023 4:09 PM05/13/2023 6:15 PMDate ActivatedDate Inactivated Ozqnewzu43/8/2023 3:47 PM04/26/2023 5:18 PMCode Status reflects patient's informed choice.Date ActivatedDate SbqnsoepdpzOwpaoujj13/5/2023 1:43 PM03/30/2023 5:31 PMDate ActivatedDate InactivatedComments02/18/2023 12:28 AM02/20/2023 4:55 PM Date ActivatedDate InactivatedComments01/12/2023 8:16 PM01/14/2023 12:34 PMCode StatusDate ActivatedDate InactivatedCommentsFull Code03/30/2017 9:46 AM04/01/2017 3:40 PMDate ActivatedDate EzlqzfkjinmRquptabs42/17/2023 4:09 PM05/13/2023 6:15 PMDate ActivatedDate MfdejzxbapmGfepplzy38/8/2023 3:47 PM04/26/2023 5:18 PMCode Status reflects patient's informed choice.Date ActivatedDate InactivatedComments 03/29/2023 1:43 PM03/30/2023 5:31 PMDate ActivatedDate InactivatedComments 02/18/2023 12:28 AM02/20/2023 4:55 PMDate ActivatedDate InactivatedComments 01/12/2023 8:16 PM01/14/2023 12:34 PMDate ActivatedDate InactivatedComments 03/30/2017 9:46 AM04/01/2017 3:40 PMTypeDate 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 ExplanationAdvance Directives and Living Will11/09/2023 8:44 PMTypeDate Recorded Patient RepresentativeExplanationAdvance Directives and Living Will11/09/2023 8:44 PMDate ActivatedDate InactivatedComments01/12/2024 5:17 PMDate ActivatedDate KqeqpmfesiiMkgnapqs34/17/2023 4:09 PM05/13/2023 6:15 PMDate ActivatedDate XgyectxakheOppuvaej81/8/2023 3:47 PM04/26/2023 5:18 PMCode Status reflects patient's informed choice.Date ActivatedDate RxfemecdcwwTxpdpcfh20/5/2023 1:43 PM03/30/2023 5:31 PMDate ActivatedDate InactivatedComments02/18/2023 12:28 AM 02/20/2023 4:55 PMDate ActivatedDate InactivatedComments01/12/2024 5:17 PM 01/18/2024 4:48 PMDate ActivatedDate LkzrbatfkbqClunqimn12/17/2023 4:09 PM 05/13/2023 6:15 PMDate ActivatedDate SdmedehgpznKsbwwabu26/8/2023 3:47 PM 04/26/2023 5:18 PMCode Status reflects patient's informed choice.Date Activated Date OymhpkvvwmxOlchwphd96/5/2023 1:43 PM03/30/2023 5:31 PMDate ActivatedDate InactivatedComments02/18/2023 12:28 AM02/20/2023 4:55 PMDate ActivatedDate InactivatedComments01/12/2024 5:17 PM01/18/2024 4:48 PMDate ActivatedDate LyddhfvjssnBlpbiewa90/1/2024 12:34 AMDate ActivatedDate InactivatedComments 01/12/2024 5:17 PM01/18/2024 4:48 PMDate ActivatedDate InactivatedComments 05/10/2023 4:09 PM05/13/2023 6:15 PMDate ActivatedDate InactivatedComments 04/01/2023 3:47 PM04/26/2023 5:18 PMCode Status reflects patient's informed choice.Date ActivatedDate LfsaogpostrHymdjouj63/5/2023 1:43 PM03/30/2023 5:31 PM Date ActivatedDate VmpvzlnuanvXjrdmpyy73/1/2024 12:34 AM04/04/2024 7:43 PMDate ActivatedDate GqowbvkmjzsJzxhzzho98/4/2024 1:09 AMDate ActivatedDate Inactivated Spglfmky59/3/2024 11:46 PM04/27/2024 1:09 AMDate ActivatedDate Inactivated Fuycpydx96/1/2024 12:34 AM04/04/2024 7:43 PMDate ActivatedDate Inactivated Comments01/12/2024 [...] ActivatedDate InactivatedComments12/03/2024 7:40 AM12/05/2024 7:18 PMDate ActivatedDate YirzxpoaxxeLluvafzz74/13/2022 2:06 AM03/11/2022 9:21 PMDate ActivatedDate InactivatedComments12/03/2024 7:40 AM12/05/2024 7:18 PMDate ActivatedDate DlhadxjpwjoByolrhnv75/13/2022 2:06 AM03/11/2022 9:21 PM Advance Directive Response Recorded Date/ Time Advance Directives No February 23, 2017 1:30pm Hospital Course Note Send Summary: Discharge Summ margoth Providers: Provider RoleProvider Name Rosalia Mendez Samuel E AttendingQuan, Kara Note Recipients: Rosalia Noble MD - [phone] [preferred] Italo Headley MD - [id number] [] Discharge: Summary: Admission Date: .06-Apr-2019 06:38:00 Discharge Date: 07-Apr-2019 Attending Physician at Discharge: Rosalia Noble Admission Reason: sustained ventricular tachycardia Final Discharge Diagnoses: sustained ventricular tachycardia dual chamber ICD Procedures: electrophysiology studies and dual chamber PPM upgrade to dual chamber ICD Condition at Discharge: Satisfactory Disposition at Discharge: .Home Vital Signs: T PRBPSpO2 [id number]/8395% Date/Time04/07 8: 8: 8: 8: 8:00 Range(36.2C [...] Log into your personal health record on [email or web address] and enter A739 in the Education box to learn more about Diabetes Foot Health: Care Instructions. Current as of: January 23, 2020 Content Version: 12.7 [employer]. Care instructions adapted under license by your healthcare professional. If you have questions about a medical condition or this instruction, always ask your healthcare professional. [employer] disclaims any warranty or liability for your [...] so she went to Emergency Department in [place], subsequently came to [facility] and was admitted for cellulitis of [...] pick it up tomorrow at pharmacy - [facility] in [place] . FLUoxetine (PROZAC) 40 MG capsule Take [...] file Gets together: Not on file Attends advent service: Not on file Active member of [...] with #316 blade. Nail border removed with tooth cutter pinion and hemostats under digital anesthesia. All necrotic [...] If there are any questions, please call. [phone]. * Nikko Wasserman, PT - 06/04/2020 4:00 [...] level Prior Level of Function Level of [place]: Independent with ADLs and functional transfers, Independent [...] 10.2-worsened since 06/28/2019. She reports that her special delivery carrier is Dr Resendez-office number [phone]. Spoke with office staff this am and [...] pt and pt has notbeen seen by special delivery carrier in almost 1 year. MD did refill [...] n left foot Cellulitis of left foot [id number] Diabetic foot infection Hypertension Hypokalemia Hypomagnesemia Hypophosphatemia Onychocryptosis Peripheral vascular disease Toe infection Toe pain, left Diabetes Nicotine dependence Chief Complaint L foot pain PAD w/left great toe ulcerReason for VisitAbscess of toenail on left foot Cellulitis of left foot [id number] Diabetic foot infection Hypertension Hypokalemia Hypomagnesemia Hypophosphatemia [...] unspecified headache type Stephany Pelayo PA-C [address] [address] Virgen Campos MD [address] [address] Referral IDStatusReasonStart DateExpiration DateVisits RequestedVisits [id number]/19/20249/174330PfyhtcuiiHkjkxjike / Procedures Referred By ContactReferred To Contact Diagnoses Chronic obstructive pulmonary disease, unspecified COPD type ([facility]) Stephany Pelayo PA-C [address] [address] Referral IDStatusReasonStart DateExpiration DateVisits RequestedVisits [id number]cl / ProceduresReferred By Contact Referred To ContactRehabilitation Diagnoses Chronic pain syndrome DDD (degenerative disc disease), lumbar Lumbar radiculopathy Jim Velez DO [address] [place] [address] Referral IDStatusReasonStart DateExpiration DateVisits RequestedVisits [id number]/16/20247/078474IojpmfbkfBgdtrayms / Procedures Referred By ContactReferred To Contact Diagnoses Type 2 diabetes mellitus with diabetic polyneuropathy, with long-term current use of insulin (HCC) Sahara Sanchez MD [address] [place] [address] Referral IDStatusReasonStart DateExpiration DateVisits RequestedVisits [id number] Jahbul32DgbxasnylSufowmocs / ProceduresReferred By ContactReferred To Contact Diagnoses Lacunar stroke (HCC) Procedures Thrombotic Risk Screen Virgen Campos MD [address] [address] Referral IDStatusReasonStart DateExpiration DateVisits RequestedVisits [id number] Review/[id number] / ProceduresReferred By ContactReferred To ContactOtolaryngology Diagnoses Hearing loss of left ear, unspecified hearing loss type Virgen Campos MD [address] [address] [address] [address] Referral IDStatusReasonAdvance DateExpiration DateVisits RequestedVisits [id number] Specialty Services Required/Patient's Best Interest /[id number] / ProceduresReferred By ContactReferred To ContactNeurology Diagnoses Seizure (HCC) Procedures EEG (Standard) Virgen Campos MD [address] [address] Referral IDStatusReasonAdvance DateExpiration DateVisits RequestedVisits [id number] Review/670970XcfmzuopuGogbrfzhn / ProceduresReferred By ContactReferred To ContactPulmonary Disease Diagnoses Subacute cough Family history of pulmonary fibrosis Stephany Pelayo PA-C [address] [place] [address] Neida Dominguez MD [address] [place] [address] Referral IDStatusReasonStart DateExpiration DateVisits RequestedVisits [id number] Patient Preference /[id number] / ProceduresReferred By ContactReferred To ContactRadiology Diagnoses RUQ abdominal pain Procedures US Abdomen Complete Stephany Pelayo PA-C [facility] [address] [address] Referral IDStatusReasonStart DateExpiration DateVisits RequestedVisits [id number]/21/20245/658574MgvjxcyleTraqkonqa / Procedures Referred By ContactReferred To ContactPulmonology Diagnoses Subacute cough Family history of pulmonary fibrosis Stephany Pelayo PA-C [address] [place] [address] Merrick Almanza MD [address] [place] [address] Referral IDStatusReasonStart DateExpiration DateVisits RequestedVisits [id number]/21/20245/760208FbtphdnicJuaywqgyg / Procedures Referred By ContactReferred To ContactUrology Diagnoses Incontinence in female AwastyHarris MD [address] [address] [facility] [place] [address] [place] [address] Referral IDStatusReasonStart DateExpiration DateVisits RequestedVisits [id number]/29/20241/257447CulfommahEscbmqlto / Procedures Referred By ContactReferred To [facility] Services Diagnoses Diabetic ulcer of right foot associated with type 2 diabetes mellitus, unspecified part of foot, unspecified ulcer stage (HCC) Left-sided weakness Visual loss, left eye Stephany Pelayo PA-C [address] [place] [address] Referral IDStatusReasonStart DateExpiration DateVisits RequestedVisits [id number] Review Patient Preference /[id number] / ProceduresReferred By ContactReferred To [facility] Diagnoses Generalized weakness Diabetic ulcer of right foot associated with type 2 diabetes mellitus, unspecified part of foot, unspecified ulcer stage (HCC) Muscle spasms of both lower extremities Stephany Pelayo PA-C [address] [place] [address] Referral IDStatusReasonStart DateExpiration DateVisits RequestedVisits [id number] Review Specialty Services Required/Patient's Best Interest /[id number] / ProceduresReferred By ContactReferred To ContactObstetrics/Gynecology Diagnoses Screening for cervical cancer Stephany Pelayo PA-C [address] [place] [address] Timothy Banegas MD [address] [place] [address] Referral IDStatusReasonStpowell DateExpiration DateVisits RequestedVisits [id number] Patient Preference /[id number] / ProceduresReferred By ContactReferred To ContactOphthalmology Diagnoses Type 2 diabetes mellitus with diabetic polyneuropathy, with long-term current use of insulin (HCC) Stephany Pelayo PA-C [address] [place] [address] [address] Referral IDStatusReasonStart DateExpiration DateVisits RequestedVisits [id number]/13/202312/180104PalpqbkbmSuhnwtyjr / ProceduresReferred By ContactReferred To ContactRadiology Diagnoses Encounter for screening mammogram for malignant neoplasm of breast Procedures Mammography Screening [place] Bilateral Stephany Pelayo PA-C [address] [place] [address] [address] [facility] [address] [place] [address] Referral IDStatusReasonStart DateExpiration DateVisits RequestedVisits [id number]/13/202312/801695IujhbpnftKkczlflym / ProceduresReferred By ContactReferred To ContactCardiology Diagnoses S/P placement of cardiac pacemaker Chronic chest pain Stephany Pelayo PA-C [address] [address] [facility] [address] [place] [address] Referral IDStatusReasonStart DateExpiration DateVisits RequestedVisits [id number]/13/202312/180459ZoqirgedhOqoxoypdr / ProceduresReferred By ContactReferred To ContactEndocrinology Diagnoses Type 2 diabetes mellitus with diabetic polyneuropathy, with long-term current use of insulin (HCC) Diabetic peripheral neuropathy (HCC) Stephany Pelayo PA-C [address] [address] [facility] [address] [place] [address] Referral IDStatusReasonStart DateExpiration DateVisits RequestedVisits [id number]/13/069105YqbaaztfoCtifwiwtj / ProceduresReferred By ContactReferred To Contact Stephany Pelayo PA-C [address] [facility] 2 [place] [address] Referral IDStatusReasonStart DateExpiration DateVisits RequestedVisits [id number]xc / ProceduresReferred By Contact Referred To ContactPsychiatry Diagnoses Bipolar 1 disorder (HCC) Insomnia, unspecified type Stephany Pelayo PA-C [address] [facility] 2 [place] [address] [facility] [address] [facility] 3 [place] [address] Referral IDStatusReasonStart DateExpiration DateVisits RequestedVisits [id number]/13/202312/12/657526YyqjmbpzxNorqyqzhy / ProceduresReferred By ContactReferred To [facility] Diagnoses Chest pain, moderate coronary artery risk Diabetic peripheral neuropathy (HCC) Seizure disorder (HCC) Morbid obesity (HCC) Chest pain, unspecified type Seizure (HCC) Seizures (HCC) Bipolar 1 disorder (HCC) Diabetic infection of left foot (HCC) Metabolic acidosis, normal anion gap (NAG) SOLO (acute kidney injury) (HCC) Abscess of chin Pacemaker History of MRSA infection Hypertension, unspecified type Cellulitis of chin Harshad Rizzo MD [address] [place], [place] [address] Referral IDStatusReasonStpowell DateExpiration DateVisits RequestedVisits [id number] Patient Preference [id number] / ProceduresReferred By ContactReferred To ContactDelaware Psychiatric Center Management Diagnoses Chest pain, moderate coronary artery risk Diabetic peripheral neuropathy (HCC) Seizure disorder (HCC) Morbid obesity (HCC) Harshad Rizzo MD [address] [id number] [facility] [address] [place] [address] Referral IDStatusMikaelaStpowell DateExpiration DateVisits RequestedVisits [id number]/6/202311/738886AlaqzpbheLyvjaorke / Procedures Referred By ContactReferred To ContactEndocrinology Diagnoses Type 2 diabetes mellitus with other specified complication, unspecified whether alf insulin use (HCC) Harshad Rizzo MD [address] [place] [address] Sahara Sanchez MD [address] [place] [address] Referral IDStatusReasonStart DateExpiration DateVisits RequestedVisits [id number] Review Specialty Services Required/Patient's Best Interest / Additional Source Comments ED Notes - Rita Bland RN - 06/26/2017 9:39 PM ESTED Provider Notes - Michi San DO - 06/26/2017 8:07 PM EST Miscellaneous Notes (unrecog nized section and content) Radiology called to ask about the status on pt's xray results. Radiology said they would call [place]. Formatting of this note may be different from the original. ED PROVIDER NOTE [facility] EMERGENCY DEPARTMENT NAME: Addie Organ AGE: 42 y.o. : 1975 VISIT DATE: 06/26/2017 CSN: [id number] PCP: Cem Mario DO Clinical Impression: SNOMED CT(R) 1. Acute exacerbation of chronic low back pain CHRONIC LOW BACK PAIN Follow-up Information 1. Cem Mario DO. Specialty: Family Medicine [address] [place] [address] Contact information for after-discharge care Follow-up information [...] reports that she was eating dinner at [place] and when she was leaving she lifted [...] (Standard) Final Result No acute bony abnormalities. [facility]/[employer] Workstation ID: [id number] XR Lumbar Spine 2-3 Views (Standard) (Results Pending) Procedures . New Prescriptions CYCLOBENZAPRINE (FLEXERIL) 10 MG TABLET Take 1 (one) tablet (10 mg total) by mouth 3 (three) times a day as needed for muscle spasms. Michi San DO, FACEP Attending Physician [facility] Emergency Department Michi San DO 06/26/17 5085 * ED Notes - Rita Bland RN [...] PM EST Pt states she was at [place] eating and then upon leaving went to [...] tolerated it well. * Felicia Note - Kaern Laguna RN - 06/04/2020 1:20 PM EST This RN was notified by pharmacist that [facility] does not carry vraylar and could [...] section and content) DATE CREATED AUTHOR 11/12/2017 [facility] DATE CREATED AUTHOR AUTHOR'S ORGANIZ ATION 11/13/2017 [facility] DATE CREATED AUTHOR AUTHOR'S ORGANIZ ATION 07/13/2018 [facility] DATE CREATED AUTHOR AUTHOR'S ORGANIZ ATION 04/12/2019 [facility] DATE CREATED AUTHOR AUTHOR'S ORGANIZ ATION 08/22/2019 [facility] DATE CREATED AUTHOR AUTHOR'S ORGANIZ ATION 12/12/2021 [facility] DATE CREATED AUTHOR AUTHOR'S ORGANIZ ATION 10/08/2022 [facility] [employer] [facility] DATE CREATED AUTHOR AUTHOR'S ORGANIZ ATION 11/05/2022 [facility] DATE CREATED AUTHOR AUTHOR'S ORGANIZ ATION 02/26/2023 [facility] DATE CREATED AUTHOR AUTHOR'S ORGANIZ ATION 04/01/2023 [facility] DATE CREATED AUTHOR AUTHOR'S ORGANIZ ATION 05/22/2023 [facility] DATE CREATED AUTHOR AUTHOR'S ORGANIZ ATION 03/26/2024 [facility] DATE CREATED AUTHOR AUTHOR'S ORGANIZ ATION 08/05/2024 [facility] DATE CREATED AUTHOR AUTHOR'S ORGANIZ ATION 09/04/2024 [facility] DATE CREATED AUTHOR AUTHOR'S ORGANIZ ATION 10/21/2024 [facility] DATE CREATED AUTHOR AUTHOR'S ORGANIZ ATION 11/13/[address] [facility] DATE CREATED AUTHOR AUTHOR'S ORGANIZ ATION 11/19/2024 [facility] DATE CREATED AUTHOR AUTHOR'S ORGANIZ ATION 12/07/2024 [facility] DATE CREATED AUTHOR AUTHOR'S ORGANIZ ATION 12/11/2024 [facility] DATE CREATED AUTHOR AUTHOR'S ORGANIZ ATION 12/31/2024 [facility] DATE CREATED AUTHOR AUTHOR'S ORGANIZ ATION 01/11/2025 [facility] DATE CREATED AUTHOR AUTHOR'S ORGANIZ ATION 01/17/2025 [facility] DATE CREATED AUTHOR AUTHOR'S ORGANIZ ATION 02/04/2025 [facility] DATE CREATED AUTHOR AUTHOR'S ORGANIZ ATION 02/05/2025 [facility] DATE CREATED AUTHOR AUTHOR'S ORGANIZ ATION 02/27/2025 [facility] DATE CREATED AUTHOR AUTHOR'S ORGANIZ ATION 02/28/2025 [facility] DATE CREATED AUTHOR AUTHOR'S ORGANIZ ATION 03/15/2025 [facility] Reason for Visit (unrecogniz ed section and content) ReasonCommentsWeaknessSpecialtyDiagnoses / ProceduresReferred By ContactReferred To Contact Referral IDStatReasonStpowell DateExpiration DateVisits RequestedVisits [id number]waqsQseoanccXukcb InfectionStatus ReasonSpecialtyDiagnoses / ProceduresReferred By ContactReferred To Contact Diagnoses Diabetic foot infection (HCC) Type 2 diabetes mellitus with left diabetic foot infection (HCC) Diabetic infection of left foot (HCC) ReasonCommentsSeizuresPatient reports that she 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 for MRIReasonCommentsPainNEW PATIENTRT KNEE PAIN, fell 01/19/23 [facility] ERReasonCommentsChest PainSpecialtyDiagnoses / ProceduresReferred By ContactReferred To Contact Diagnoses Flank pain Chest pain, unspecified type Referral IDStatReasonStart DateExpiration DateVisits RequestedVisits [id number] PainSpecialtyDiagnoses / Procedures Referred By ContactReferred To Contact Diagnoses Chest pain Chest pain, moderate coronary artery risk Referral IDStatReasonStart DateExpiration DateVisits RequestedVisits [id number] / ProceduresReferred By ContactReferred To Contact ReasonCommentsEstablish CareGap Closure (Health Maintenance)Flu, pneumonia, diabetic eyeReasonOnset DateCommentsCare Management Iizdcdpy06/21/2023Financial ResourcesReasonOnset DateCommentsTransition Of Care05/15/2023ReasonOnset Date Commentshosp bed05/15/2023ReasonCommentsTransition Of CareReasonOnset Date CommentsMedication Bakael464ReasonCommentsAcute VisitSpecialtyDiagnoses / ProceduresReferred By ContactReferred To ContactPsychiatry Diagnoses Bipolar 1 disorder (HCC) Insomnia, unspecified type Stephany Pelayo PA-C [address] [facility] [address] [place] [address] [facility] [address] [facility] [address] [place] [address] Referral IDStatusReasonStart DateExpiration DateVisits RequestedVisits [id number]/13/202312/12/278683RjzymzAnedl DateCommentsMedication Rmoaaq174ReasonCommentsFallLeg PainReasonOnset DateCommentsMedication Zhdhqd324ReasonCommentsFollow-upReasonOnset BdhrYhuunyooKYU43/18/2024 ReasonOnset DateCommentsMedication Kohetz874ReasonCommentsFollow-up Bipolar 1/ anxiety/ PTSD/ insomnia- Patient compliant [...] laterality, unspecified retinopathy severity Jessica Puentes MD [address] [place] [address] [facility] [address] [place] [address] Referral IDStatusReasonStart DateExpiration DateVisits RequestedVisits [id number] Request/454863IcxblrDsnjr DateComments Medication Cfoffd004ReasonCommentsEstablish CareseizuresSpecialty Diagnoses / ProceduresReferred By ContactReferred To ContactNeurology Diagnoses Seizures (HCC) Fab Head MD [address] [place] [address] Virgen Campos MD [address] [place] [address] Referral IDStatusReasonStart DateExpiration DateVisits RequestedVisits [id number] Review/039484FdpkfnKlmyi DateComments Medication Rypbeb204ReasonCommentsMed Change RequestReasonComments Diabetes MellitusGap Closure (Health Maintenance)There are no preventive care reminders to display for this patient.SpecialtyDiagnoses / ProceduresReferred By ContactReferred To ContactEndocrinology Diagnoses Type 2 diabetes mellitus with diabetic polyneuropathy, with long-term current use of insulin (HCC) Diabetic peripheral neuropathy (HCC) Stephany Pelayo PA-C [address] [place] [address] [facility] [address] [place] [address] Referral IDStatusReasonStart DateExpiration DateVisits RequestedVisits [id number]/13/202312/969198AkswxeQaizh DateCommentsMedication Optfps574ReasonCommentsPainVAS= 9/10DAX CONSENTYESBack PainThoracic to lumbar painSpecialtyDiagnoses / ProceduresReferred By ContactReferred To Contact Pain Medicine Diagnoses Chronic pain syndrome Muscle spasms of both lower extremities Stephany Pelayo PA-C [facility] [address] [facility] 2 [place] [address] [facility] Pain [address] [place] [address] Referral IDStatusReasonStart DateExpiration DateVisits RequestedVisits [id number]/11/20244/560885DbraeiYuxkm DateCommentsMedication Imlnyv904ReasonCommentsAcute VisitCough, sore throat x 1 weekReasonOnset DateCommentsnebulizer /22/2024ReasonOnset DateCommentsMedication Yowdzz864ReasonOnset DateCommentsMedication Wcrpdd224Reason CommentsToe InjuryWound CheckSpecialtyDiagnoses / ProceduresReferred By Contact Referred To Contact Diagnoses Diabetic ulcer of left great toe (HCC) Diabetic ulcer of toe of left foot associated with type 2 diabetes mellitus, limited to breakdown of skin (HCC) Referral IDStatusReasonStart DateExpiration DateVisits RequestedVisits [id number] DateCommentsCare Management Hucvocfg43/04/2024 Food Insecurity, Housing ResourcesReasonCommentsFollow-upHosp follow up-left big toeReasonOnset DateCommentsMedication Zhrliz124ReasonOnset DateComments Medication Mcjwip324ReasonCommentsToe PainLeft great toe infection since Thursday-pain, drainageReasonCommentsFollow-upPainVAS = 9ack PainLumbar pain ReasonCommentsFollow-upCheck b12 level, supplies for toeHeartburn worse-can we increase med doseReasonOnset DateCommentsMedication Yhvppz094Reason CommentsFollow-up4 week f/uAbdominal CrampingFor a couple of weeks, diarrhea for 1 weekReasonOnset DateCommentsMedication Jcvklq224ReasonOnset Date CommentsGentry Fjopzb594ReasonCommentsToe PainSpecialtyDiagnoses / ProceduresReferred By ContactReferred To Contact Diagnoses Elevated troponin SIRS (systemic inflammatory response syndrome) (HCC) Toe osteomyelitis (HCC) Diabetes mellitus due to underlying condition with hyperglycemia, with long-term current use of insulin (HCC) Osteomyelitis of great toe (HCC) Referral IDStatusReasonAdvance DateExpiration DateVisits RequestedVisits [id number] DateCommentsMedication Ibcftq704Reason Onset DateCommentsMedication Kgrvle824ReasonCommentsPost-op ProblemToe PainSpecialtyDiagnoses / ProceduresReferred By ContactReferred To Contact Diagnoses Diabetic foot infection (HCC) Postoperative infection, unspecified type, initial encounter Referral IDStatusReasonart DateExpiration DateVisits RequestedVisits [id number] 8/Follow-upFoot PainReasonOnset Date CommentsMedication Qwnilj4805/27/2024ReasonOnset DateCommentsincontinence supplies 06/06/2024ReasonOnset DateCommentsMedication Osrxde5006/10/2024ReasonCommentsFoot UlcerLT foot ulcersReasonCommentsAcute VkeizT0S for shower chairReasonOnset Date Commentsshower chair07/21/2024ReasonOnset DateCommentsMedication Refill 07/12/2024ReasonOnset DateCommentsPulse ox08/04/2024ReasonCommentsFollow-upWould like miralax and zinc oxide creamReasonOnset DateCommentsMedication Refill 08/18/2024ReasonCommentsPainFollow-upLeg PainFoot PainVas 10/10ReasonOnset Date TeqfruhqSctmw90/08/2025ReasonOnset DateCommentsMedication Cxyjti0409/22/2024Reason Onset DateCommentsMedication Lblciv6810/06/2024ReasonCommentsNo ShowSpecialty Diagnoses / ProceduresReferred By ContactReferred To ContactEndocrinology, Diabetes & Metabolism Diagnoses Type 2 diabetes mellitus with diabetic polyneuropathy, with long-term current use of insulin Stephany Pelayo PA-C Phone: tel: fax: [facility] [address] [place] [address] Referral IDStatusReasonStart DateExpiration DateVisits RequestedVisits [id number] Review/[id number] DateComments Medication Ndlkrz5411/21/2024ReasonOnset DateCommentsMedication Dlsjra3412/19/2024 ReasonCommentsDiabetes3 YEARSReasonCommentsPainFollow-upBack PainVas 02/01Reason Onset DateCommentsPower scooter DME02/24/2025ReasonCommentsBack PainKnee Pain SpecialtyDiagnoses / ProceduresReferred By ContactReferred To Contact Neurosurgery Diagnoses Lumbar stenosis with neurogenic claudication Mihai Elizalde, [employer]RECTION[employer] FACILITY PSYCHIATRIST [address] [place] [address] Phone: tel: fax: Raul Kumar MD [address] [address] Phone: tel: fax: Referral IDStatusReasonStart DateExpiration DateVisits RequestedVisits [id number]/2/202510/2/167817ElpppwYtdgz DateCommentsPrior Cxgxqlmrzjbhb27/21/2025ReasonOnset DateCommentsMedication Xvlfji4803/21/2025 Bridger Garner MD - 06/04/2020 1:07 PM EST H&P Notes (unrecognized sect ion and content) HISTORY AND PHYSICAL Patient Name: Addie Jean Baptiste Admit Date: [id number] MR #: [id number] : 1975 Physicians: Provider Not in System [...] PT/OT Hibiclens Lactate elevated, will monitor Seizures ([facility]) Assessment & Plan Continue home keppra, depakote Bipolar 1 disorder ([facility]) Assessment & Plan No evidence of denys at this time Continue home seroquel, lee ann ulrichlar Hypertension Assessment & Plan Continue home lopressor Diabetes mellitus type II, uncontrolled ([facility]) Assessment & Plan A1c 10.2% On [...] resistant Staphylococcus aureus) Pacemaker Seizures (HCC) Stroke ([facility]) Past Surgical History: Procedure Laterality Date CHOLECYSTECTOMY [...] file Gets together: Not on file Attends advent service: Not on file Active member of [...] at pharmacy - [facility] [place] . FLUoxetine (PROZAC) 40 MG capsule Take [...] Associated Order(s): Critical Care ED PROVIDER NOTE THREE [facility] EMERGENCY DEPARTMENT NAME: Addie Jean Baptiste AGE: 45 y.o. : 1975 VISIT DATE: 06/03/2020 CSN: [id number] PCP: Provider Not in System Chief Complaint Patient presents with Wound Infection For the past week her left first toe has been inflamed. Two days ago she became aware of some serous drainage from her toe. On 06/02/2020 she was seen at [facility], and was started on Keflex atthat time. [...] file Gets together: Not on file Attends advent service: Not on file Active member of [...] any injuries to toe. [facility] me . Pt did acknowledge shegot antibiotics. Pt in nad * Kj Torres RN - 06/03/2020 2:29 PM EST Called [facility] [phone] to see if they could fax me records from yesterdays ER visit,talked to Emma states she will fax the records documented in this encounter Care Team (unrecognized sect ion and content) Team Status: Active Member Role Status Dates Laurent Franco FINISHING TECHNICIAN-C Primary Care Provider Active Team Status: Inactive Member Role Status Dates [facility] Cassandra Franco NP-C Primary Care Provider Active Diogenes Torres ProviderActiveEzekiel Mathew , DOAdmit ProviderActiveRalouise Martini MDAttwilman ProviderActiveLawrence Kim MDOther ProviderActiveNicJAS BeeMOdeuce ProviderActiveShameka Romero MDOther ProviderActiveTeam MemberRelationshipSpecialtyStart DateEnd Date Cem Mario DO [address] [place] [address] PCP - GeneralFamily Medicine05/28/15 Team Status: Active Member Role Status Dates [facility] Cassandra Franco NP-C Primary Care Provider Active Jacob A Keister , DOEmergency ProviderActiveKrfrankie Mathew , DOAdmit Provider, Attending ProviderActive Team Status: Inactive Member Role Status Dates Tobyp Cassandra Franco , FINISHING TECHNICIAN-C Primary Care Provider Active Jacob Farfan , DOEmergency ProviderActiveKristanand Mathew , DOAdmit ProviderActiveLawrence Kim MDOther ProviderActiveNiclino Castillo DPMOther ProviderActiveShameka Romero MDOther ProviderActiveJeana Martini MD Attending ProviderActive Team Status: Inactive Member Role Status Dates Tobyp W Salvador , FINISHING TECHNICIAN-C Primary Care Provider Active Shameka Romero MDAttending ProviderActiveTeam MemberRelationship SpecialtyStart DateEnd Date System, Provider Not In PCP - General01/12/23Team MemberRelationshipSpecialtyStart DateEnd Date System, Provider Not In PCP - General01/12/23Team MemberRelationshipSpecialtyStart DateEnd Date System, Provider Not In PCP - General01/12/23Team MemberRelationshipSpecialtyStart DateEnd Date System, Provider Not In PCP - General01/12/2311 Enrique Hebert DO [address] [place] [address] PCP - GeneralPrimary Care03/30/23Team MemberRelationshipSpecialtyStart DateEnd Date Enrique Hebert DO [address] [place] [address] PCP - GeneralPrimary Care03/30/23Team MemberRelationshipSpecialtyStart DateEnd Date Enrique Hebert DO [address] [place] [address] PCP - GeneralPrimary Care03/30/23Team MemberRelationshipSpecialtyStart DateEnd Date Enrique Hebert DO [address] [place] [address] PCP - GeneralPrimary Care11/6/23Team MemberRelationshipSpecialtyStart DateEnd Date Enrique pisano DO [address] [place] [address] PCP - GeneralPrimary Care11/6/23Team MemberRelationshipSpecialtyStart DateEnd Date [facility] [address] [place] [address] PCP - GeneralPrimary Care11/6/23Team MemberRelationshipSpecialtyStart DateEnd Date [facility] DO [address] [place] [address] PCP - GeneralPrimary Care11/6/23Team MemberRelationshipSpecialtyStart DateEnd Date [facility] DO [address] [place] [address] PCP - GeneralPrimary Care11/6/23Team MemberRelationshipSpecialtyStart DateEnd Date [facility] DO [address] [place] [address] PCP - GeneralPrimary Care11/6/23Team MemberRelationshipSpecialtyStart DateEnd Date [facility] DO [address] [place] [address] PCP - GeneralPrimary Care11/6/23Team MemberRelationshipSpecialtyStart DateEnd Date [facility] DO [address] [place] [address] PCP - GeneralPrimary Care11/6/23Team MemberRelationshipSpecialtyStart DateEnd Date Enrique pisano DO [address] [place] [address] PCP - GeneralPrimary Care11/6/23Team MemberRelationshipSpecialtyStart DateEnd Date [facility] DO [address] [place] [address] PCP - GeneralPrimary Care11/6/23Team MemberRelationshipSpecialtyStart DateEnd Date Enrique pisano DO [address] [place] [address] PCP - GeneralPrimary Care11/6/23Team MemberRelationshipSpecialtyStart DateEnd Date Enrique ipsanoDO [address] [place] [address] PCP - GeneralPrimary Care11/6/23Team MemberRelationshipSpecialtyStart DateEnd Date [facility]SEnriqueDO [address] [place] [address] PCP - GeneralPrimary Care11/6/23Team MemberRelationshipSpecialtyStart DateEnd Date aliyaMunaEnriqueDO [address] [place] [address] PCP - GeneralPrimary Care11/6/23Team MemberRelationshipSpecialtyStart DateEnd Date [facility]'SMunaEnriqueDO [address] [place] [address] PCP - GeneralPrimary Care03/30/23Team MemberRelationshipSpecialtyStart DateEnd Date Enrique Hebert DO [address] [place] [address] PCP - GeneralPrimary Care03/30/23Team MemberRelationshipSpecialtyStart DateEnd Date [facility]nrique DO [address] [place] [address] PCP - GeneralPrimary Care03/30/23Team MemberRelationshipSpecialtyStart DateEnd Date [facility]nrique DO [address] [place] [address] PCP - GeneralPrimary Care03/30/2312 No, Physician [facility] PCP - Jixbtji86/7/ Stephany Pelayo PA-C [address] [place] [address] PCP - GeneralInternal Btzpelle59/13/23Team MemberRelationshipSpecialtyStart Date End Date Stephany Pelayo PA-C [address] [place] [address] PCP - GeneralInternal Lngqczoc49/13/23Team MemberRelationshipSpecialtyStart Date End Date Stephany Pelayo PA-C [address] [place] [address] PCP - GeneralInternal Gmiucjnv28/13/23 Josephine Reynoso, RN Case ManagerCase Jvqqvuygws41/21/23Team MemberRelationshipSpecialtyStart DateEnd Date Stephany Pelayo PA-C [address] [place] [address] PCP - GeneralInternal Gfxdltuv43/13/23 Josephine Reynoso, RN Case ManagerCase Whyianafak20/21/23Team MemberRelationshipSpecialtyStart DateEnd Date Stephany Pelayo PA-C [address] [place] [address] PCP - GeneralInternal Rzogmmmy31/13/23 Josephine Reynoso, RN Case ManagerCase Flmwjwdokx87/21/23Team MemberRelationshipSpecialtyStart DateEnd Date Stephany Pelayo PA-C [address] [place] [address] PCP - GeneralInternal Kbwkwodn83/13/23 Josephine Reynoso, RN Case ManagerCase Cihyskbmls01/21/23Team MemberRelationshipSpecialtyStart DateEnd Date Stephany Pelayo PA-C [address] [place] [address] PCP - GeneralInternal Ydyzbjfl09/13/23 Josephine Reynoso, RN Case ManagerCase Piceshltfw68/21/23Team MemberRelationshipSpecialtyStart DateEnd Date Enrique Hebert DO [address] [place] [address] PCP - GeneralPrimary Care03/30/2312 No, Physician [facility] PCP - Bksqarq82/7/ Stephany Pelayo PA-C [address] [place] [address] PCP - GeneralInternal Ldpazrho27/13/23 Josephine Reynoso, RN Case ManagerCase Cvhhcahezf10/21/23Team MemberRelationshipSpecialtyStart DateEnd Date Stephany Pelayo PA-C [address] [place] [address] PCP - GeneralInternal Tayvpuue00/13/23 Josephine Reynoso, RN Case ManagerCase Pubrhamohx03/21/23Team MemberRelationshipSpecialtyStart DateEnd Date Stephany Pelayo PA-C [address] [place] [address] PCP - GeneralInternal Wpkguxjj02/13/23 Josephine Reynoso, RN Case ManagerCase Wvwbvdnymn49/21/23Team MemberRelationshipSpecialtyStart DateEnd Date Stephany Pelayo PA-C [address] [place] [address] PCP - GeneralInternal Aphxzzan83/13/23 Josephine Reynoso, RN Case ManagerCase Management07/30/23Team MemberRelationshipSpecialtyStart DateEnd Date Stephany Pelayo PA-C [address] [place] [address] PCP - GeneralInternal Ngxdmuhr36/13/23Team MemberRelationshipSpecialtyStart Date End Date Lexy Leach MD [address] [place] [phone] PCP - GeneralClinical Cardiac Electrophysiology09/23/16 Cherelle Fierro MD [address] [place] [address], [address] [address] Family Medicine01/30/12 DarronCem, DO [address] [place] [address] Consulting PhysicianFamily Puefejow18/27/17Team MemberRelationshipSpecialtyStart DateEnd Date Stephany Pelayo PA-C [address] [place] [address] PCP - GeneralInternal Hhmjnfqf51/13/23Team MemberRelationshipSpecialtyStart Date End Date Stephany Pelayo PA-C [address] [place] [address] PCP - GeneralInternal Rnqnjvfv66/13/23Team MemberRelationshipSpecialtyStart Date End Date Stephany Pelayo PA-C [address] [place] [address] PCP - GeneralInternal Mppjhzxi16/13/23Team MemberRelationshipSpecialtyStart Date End Date Stephany Pelayo PA-C [address] [place] [address] PCP - GeneralInternal Qryezlua07/13/23Team MemberRelationshipSpecialtyStart Date End Date Stephany Pelayo PA-C [address] [place] [address] PCP - GeneralInternal Ezawuama05/13/23 Josephine Reynoso, RN Case ManagerCase [facility]09/21/23Team MemberRelationshipSpecialtyStart DateEnd Date Stephany Pelayo PA-C [address] [place] [address] PCP - GeneralInternal Ojglxvew85/13/23 Josephine Reynoso, JAEL Case ManagerCase ManagementTeam MemberRelationshipSpecialtyStart DateEnd Date Stephany Pelayo PA-C [address] [facility] [address] [place] [address] PCP - GeneralInternal Wcbdfafx72/13/23Team MemberRelationshipSpecialtyStart Date End Date Stephany Pelayo PA-C [address] [facility] [address] [place] [address] PCP - GeneralInternal Hlazovmc52/13/23Team MemberRelationshipSpecialtyStart Date End Date Stephany Pelayo PA-C [address] [facility] [address] [place] [address] PCP - GeneralInternal Veyagtrn99/13/23Team MemberRelationshipSpecialtyStart Date End Date Stephany Pelayo PA-C [address] [facility] [address] [place] [address] PCP - GeneralInternal Vwvdtnzd99/13/23Team MemberRelationshipSpecialtyStart Date End Date Stephany Pelayo PA-C [address] [facility] [address] [place] [address] PCP - GeneralInternal Aekyklfo06/13/23Team MemberRelationshipSpecialtyStart Date End Date Stephany Pelayo PA-C [address] [facility] [address] [place] [address] PCP - GeneralInternal Ynaxnnji09/13/23Team MemberRelationshipSpecialtyStart Date End Date Stephany Pelayo PA-C [address] [address] PCP - GeneralInternal Pozxlqyj10/13/23Team MemberRelationshipSpecialtyStart Date End Date Lexy Leach MD [address] [place] [phone] PCP - GeneralClinical Cardiac Electrophysiology09/23/16 Cherelle Fierro MD [address] [place] [address] Family Medicine01/30/12 Cem Mario DO [address] [place] [address] Consulting PhysicianFamily Okfaelgd45/27/17Team MemberRelationshipSpecialtyStart DateEnd Date Stephany Pelayo PA-C [address] [address] PCP - GeneralInternal Mqmgcyby96/13/23Team MemberRelationshipSpecialtyStart Date End Date Stephany Pelayo PA-C [address] [address] PCP - GeneralInternal Ndopfsye95/13/23Team MemberRelationshipSpecialtyStart Date End Date Stephany Pelayo PA-C [address] [address] PCP - GeneralInternal Ueomnooy60/13/23Team MemberRelationshipSpecialtyStart Date End Date Stephany Pelayo PA-C [address] [facility] [address] [place] [address] PCP - GeneralInternal Uefelhfd59/13/23Team MemberRelationshipSpecialtyStart Date End Date Stephany Pelayo PA-C [address] [facility] [address] [place] [address] PCP - GeneralInternal Xwcxivge72/Team MemberRelationshipSpecialtyStart Date End Date Stephany Pelayo PA-C [address] [facility] [address] [place] [address] PCP - GeneralInternal Xxmbtkog63/13/23Team MemberRelationshipSpecialtyStart Date End Date Stephany Pelayo PA-C [address] [facility] [address] [place] [address] PCP - GeneralInternal Awpxxktf65/13/23Team MemberRelationshipSpecialtyStart Date End Date Stephany Pelayo PA-C [address] [facility] [address] [place] [address] PCP - GeneralInternal Ivnvvxmf84/13/23Team MemberRelationshipSpecialtyStart Date End Date Stephayn Pelayo PA-C [address] [facility] [address] [place] [address] PCP - GeneralInternal Ajbspowp82/13/23Team MemberRelationshipSpecialtyStart Date End Date Stephany Pelayo PA-C [address] [facility] [address] [place] [address] PCP - GeneralInternal Gznavsxp96/23Team MemberRelationshipSpecialtyStart Date End Date Stephany Pelayo PA-C [address] [place] [address] PCP - GeneralInternal Pqbfahzy44/13/23Team MemberRelationshipSpecialtyStart Date End Date Stephany Pelayo PA-C [address] [place] [address] PCP - GeneralInternal Bvajdvbe32/13/23Team MemberRelationshipSpecialtyStart Date End Date Stephany Pelayo PA-C [address] [place] [address] PCP - GeneralInternal Toblptvq53/13/23Team MemberRelationshipSpecialtyStart Date End Date Stephany Pelayo PA-C [address] [place] [address] PCP - GeneralInternal Qkyzxcwm22/13/23 Swapnil Hooks Community Health WorkerCase Management01/27/24Team MemberRelationshipSpecialty Start DateEnd Date Stephany Pelayo PA-C [address] [place] [address] PCP - GeneralInternal Sabfpwun77/13/23 Swapnil Hooks Community Health WorkerCase Management01/27/24Team MemberRelationshipSpecialty Start DateEnd Date Stephany Pelayo PA-C [address] [place] [address] PCP - GeneralInternal Tqwcmgsm36/13/23 Swapnil Hooks Community Health WorkerCase Management01/27/24Team MemberRelationshipSpecialty Start DateEnd Date Stephany Pelayo PA-C [address] [facility] [address] [place] [address] PCP - GeneralInternal Wvtrkmtz71/13/23 Swapnil Hooks Community Health WorkerCase Management01/27/24Team MemberRelationshipSpecialty Start DateEnd Date Stephany Pelayo PA-C [address] [facility] [address] [place] [address] PCP - GeneralInternal Jhqlxvfx50/13/23 Swapnil Hooks [facility] Health WorkerCase Management01/27/24Team MemberRelationshipSpecialty Start DateEnd Date Stephany Pelayo PA-C [address] [facility] [address] [place] [address] PCP - GeneralInternal Gwvyyyjj58/13/23Team MemberRelationshipSpecialtyStart Date End Date Stephany Pelayo PA-C [address] [facility] [address] [place] [address] PCP - GeneralInternal Knvtjhje68/13/23 Swapnil Hooks Community Health WorkerCase Management01/27/24 Radha Davalos, JULI DietitianDietitian/Nutritionist02/04/24Team MemberRelationshipSpecialtyStart Date End Date Stephany Pelayo PA-C [address] [facility] [address] [place] [address] PCP - GeneralInternal Cqfoeevh21/13/23 Swapnil Hooks [facility] Health WorkerCase Management01/27/24Team MemberRelationshipSpecialty Start DateEnd Date Stephany Pelayo PA-C [address] [facility] [address] [place] [address] PCP - GeneralInternal Szljaadi53/13/23 Swapnil Hooks Community Health WorkerCase Management01/27/24 Radha Davalos, JULI DietitianDietitian/Nutritionist02/04/24Team MemberRelationshipSpecialtyStart Date End Date Stephany Pelayo PA-C [address] [facility] 2 [place] [address] PCP - GeneralInternal Fitycrwa98/13/23 Swapnil Hooks Community Health WorkerCase Management01/26/2410Team MemberRelationship SpecialtyStart DateEnd Date Stephany Pelayo PA-C [address] [address] PCP - GeneralInternal Rldackjc68/13/23Team MemberRelationshipSpecialtyStart Date End Date Stephany Pelayo PA-C [address] [place] [address] PCP - GeneralInternal Zltryxvl77/13/23Team MemberRelationshipSpecialtyStart Date End Date Stephany Pelayo PA-C [address] [place] [address] PCP - GeneralInternal Dcygbefd42/13/23Team MemberRelationshipSpecialtyStart Date End Date Stephany Pelayo PA-C [address] [place] [address] PCP - GeneralInternal Apqjjnuu47/13/23Team MemberRelationshipSpecialtyStart Date End Date Stephany Pelayo PA-C [address] [facility] 2 [place] [address] PCP - GeneralInternal Fqokkebt76/13/23Team MemberRelationshipSpecialtyStart Date End Date Stephany Pelayo PA-C [address] [place] [address] PCP - GeneralInternal Rhswzeox17/13/23Team MemberRelationshipSpecialtyStart Date End Date Stephany Pelayo PA-C [address] [facility] [address] [place] [address] PCP - GeneralInternal Wzgbprfv93/13/23Team MemberRelationshipSpecialtyStart Date End Date Stephany Pelayo PA-C [address] [facility] [address] [place] [address] PCP - GeneralInternal Vhwzybkc91/13/23Team MemberRelationshipSpecialtyStart Date End Date Stephany Pelayo PA-C [address] [facility] [address] [place] [address] PCP - GeneralInternal Xgsnwthm51/13/23Team MemberRelationshipSpecialtyStart Date End Date Stephany Pelayo PA-C [address] [facility] [address] [place] [address] PCP - GeneralInternal Upkhwhcg14/13/23Team MemberRelationshipSpecialtyStart Date End Date Stephany Pelayo PA-C [address] [facility] [address] [place] [address] PCP - GeneralInternal Pwfetbbb05/13/23Team MemberRelationshipSpecialtyStart Date End Date Stephany Pelayo PA-C [address] [address] PCP - GeneralInternal Kngrjono05/13/23Team MemberRelationshipSpecialtyStart Date End Date Stephany Pelayo PA-C [address] [address] PCP - GeneralInternal Chwnibif95/13/23Team MemberRelationshipSpecialtyStart Date End Date Stephany Pelayo PA-C [address] [address] PCP - GeneralInternal Lthxuaxt49/13/23Team MemberRelationshipSpecialtyStart Date End Date Stephany Pelayo PA-C [address] [address] PCP - GeneralInternal Miibgnrp40/13/23Team MemberRelationshipSpecialtyStart Date End Date Unallocated, Noms Provider, [address] [place] [address] PCP - GeneralFamily Medicine07/05/24 Jim Velez MD [address] [place] [address] Referring PhysicianPain Medicine07/05/24Team MemberRelationshipSpecialtyStart DateEnd Date Stephany Pelayo PA-C [address] [place] [address] PCP - GeneralInternal Fjysestx34/13/23Team MemberRelationshipSpecialtyStart Date End Date Stephany Pelayo PA-C [address] [place] [address] PCP - GeneralInternal Htiorbwg34/13/23Team MemberRelationshipSpecialtyStart Date End Date Stephany Pelayo PA-C [address] [facility] [address] [place] [address] PCP - GeneralInternal Ktvjelan08/13/23Team MemberRelationshipSpecialtyStart Date End Date Stephany Pelayo PA-C [address] [facility] [address] [place] [address] PCP - GeneralInternal Qnrsjzvo71/13/23Team MemberRelationshipSpecialtyStart Date End Date Stephany Pelayo PA-C [address] [facility] [address] [place] [address] PCP - GeneralInternal Gtmtkcjb33/13/23Team MemberRelationshipSpecialtyStart Date End Date Stephany Pelayo PA-C [address] [facility] [address] [place] [address] PCP - GeneralInternal Tividyxw41/13/23Team MemberRelationshipSpecialtyStart Date End Date Stephany Pelayo PA-C [address] [facility] [address] [place] [address] PCP - GeneralInternal Ylpfbicg10/13/23Team MemberRelationshipSpecialtyStart Date End Date Stephany Pelayo PA-C [address] [facility] [address] [place] [address] PCP - GeneralInternal Otyhmoys13/13/23Team MemberRelationshipSpecialtyStart Date End Date Stephany Pelayo PA-C [address] [place] [address] 2 [place] [address] PCP - GeneralInternal Tpjiyifx06/13/23Team MemberRelationshipSpecialtyStart Date End Date Stephany Pelayo PA-C [address] [place] [address] PCP - GeneralInternal Ovewkzie44/13/23Team MemberRelationshipSpecialtyStart Date End Date Stephany Pelayo PA-C [facility] [place] [address] PCP - GeneralInternal Cpzsfhiu11/13/23Team MemberRelationshipSpecialtyStart Date End Date Stephany Pelayo PA-C [address] [place] [address] PCP - GeneralInternal Xlvuapex77/13/23Team MemberRelationshipSpecialtyStart Date End Date Lexy Leach MD [address] [place] [address] PCP - GeneralClinical Cardiac Electrophysiology09/23/16 Cherelle Fierro MD [address] [place] [phone] Family Medicine01/30/12 Cem Mario W, DO [address] [place] [address] Consulting PhysicianFamily Xlztlris25/27/17Team MemberRelationshipSpecialtyStart DateEnd Date Stephany Pelayo PA-C [address] [place] [address] PCP - [facility]05/06/Team MemberRelationshipSpecialty Start DateEnd Date Radha Dias DO PCP - [facility] Team Status: Inactive Member Role Status Dates Ben Horn DO Attending Provider Active S tart: December 28, 2024 End: December 28, 2024Team MemberRelationshipSpecialtyStart DateEnd Date Unallocated, Shilas MD [facility] [place] [address] [facility] - [facility]07/05/24 Jim Velez MD [address] [place] [phone] [facility]07/05/24Team MemberRelationshipSpecialtyStart DateEnd Date Unallocated, Shilas MD [facility] [place] [address] [facility] - [facility]07/05/24 Jim Velez MD [address] [place] [phone] [facility]/24 Team Status: Active Member Role Status Dates Andrés Lopez DO Primary Care Provider Active Team Status: Inactive Member Role Status Dates Andrés Lopez DO Primary Care Provider Active Start: February 20, 2025 End: February 20, 2025Mitcorin Lopez DOAttending ProviderActiveStart: February 20, 2025 End: February 20, 2025Team MemberRelationshipSpecialtyStart DateEnd Date System, Provider Not In [facility] Peqtilp49/2/25Team MemberRelationshipSpecialtyStart DateEnd Date System, Provider Not In [facility] Pftodrp57/2/25Te MemberRelationshipSpecialtyStart DateEnd Date System, Provider Not In [facility]02/23/25Te MemberRelationshipSpecialtyStart DateEnd Date System, Provider Not In [facility]02/23/25Te MemberRelationshipSpecialtyStart DateEnd Date System, Provider Not In [facility]02/23/25Te MemberRelationshipSpecialtyStart DateEnd Date Unallocated, Dominguze Cardona MD [address] [place] [address] PCP [facility]07/05/24 Jim Velez MD [address] [facility] [place] [address] Referring [facility]07/05/24Te MemberRelationshipSpecialtyStart DateEnd Date System, Provider Not In [facility]02/23/25 Team Status: Active Member Role/Relationship [...] for up to 14 days. 7 tablet 007/17/198026/ Scheduled Active and Recently Administ ered Medications [...] 0400 * 0404 (Given - Provider: Monique Grande RN) * 0955 (Given - Provider: Sandra [...] Bag - Provider: Dannielle Jeong RN) Medication Order09/27/[id number]// albuterol inhaler 2 puff 2 puff, Inhalation, [...] CRUSH OR CHEW. * 0[facility] Monique Grande RN) ondansetron (ZOFRAN) [...] at 2024, Give with Food flu vacc [id number] 6mos up(PF) (FLUZONE QUAD/FLULAVAL QUAD/FLUARIX QUAD) syringe [...] Levin RN) * 2324 (Given - Provider: Lauar Lechuga, JAEL) * 0918 (Given - Provider: [...] patient refuses. * 1001 (Given - Provider: Kvng Portillo) * 1400 (Due) heparin, porcine (PF) [...] 0857 (Given - Provider: Ifeoma Waterman, RN) nicotine (NICODERM CQ) 14 mg/24 hr [...] (Given - Provider: Nicolette Coffey, JAEL) * 1244 (Given - Provider: Nicolette [...] Benjamin RN) * 2021 (Given - Provider: Kinaz Plascencia LPN) * 825 (Given - Provider: Yvette Canchola, JAEL) * 2107 (Given - Provider: Aleyda Villegas, JAEL) * 830 (Given - Provider: Yvette Canchola, [...] First dose (after last modification) on Thu04/27/24 [id number], DO NOT CRUSH OR CHEW. * 0804 [...] Mcpherson RN) * 0356 (Paused - Provider: Uzma Mcpherson RN) * 0510 (Restarted - Provider: Uzma Mcpherson RN) * 0626 (Rate/Dose Verify - Provider: Uzma Mcpherson RN) * 0907 (Rate/Dose Change - Provider: Uzma Mchperson RN) * 0909 (Stop Bag - Provider: [...] dextrose- containing formulation, DO NOT change to oel-iavccxms-sqpuefvdtl IV fluid if blood glucose exceeds 250 [...] dextrose- containing formulation, DO NOT change to joh-aatedqiv-icsdsyvgsx IV fluid if blood glucose exceeds 250 mg/dL. * 0816 (New Bag - Provider: Uzma Mcpherson RN) * 0816 (Paused - Provider: Uzam Mcpherson RN) * 0818 (Paused - Provider: [...] BE BASED ON THE PRIMARY CLINICAL RECORDS. [employer] [facility]. provides no warranty or guarantee of the accuracy or completeness of information in this document.
[2025-04-27 20:12] LABS: Glucose 615 mg/dL (74-106)
[2025-04-27] MEDS: INSULIN REGULAR, HUMAN (100 UNIT/ML) 10 ML MDV 10 UNIT IV (20:23)
[2025-04-27] MEDS: 0.9 % SODIUM CHLORIDE 1,000 ML 1000 ML IV (20:31)
[2025-04-27 21:47] VITALS: BP 140/78; O2SAT 98
== END 2025-04-27 21:51 | disposition home or self-care (01) ==
PROVIDERS: Emergency Provider Emergency Medicine; PCP Student in an Organized Health Care Education/Training Program
DX: R04.0 Epistaxis (principal); E11.65 Type 2 diabetes mellitus with hyperglycemia; Z86.73 Personal history of transient ischemic attack (TIA), and cerebral infarction without residual deficits; F17.200 Nicotine dependence, unspecified, uncomplicated; Z79.4 Long term (current) use of insulin; Z96.41 Presence of insulin pump (external) (internal)
CPT/HCPCS: 36415; 80048; 85025; 87811; 99285; J1817

== ENCOUNTER 2025-05-15 19:51 | Emergency (ER) | payer OTHER, SELFPAY ==
--- OUTSIDE RECORDS SUMMARY | 2025-05-04 08:46 | XMS_ITS | Continuity of Care Document ---
Author Organization [facility] Address [address] [place] [address] Phone Care Team Providers Care Control Room Technician Name Role Phone Andrés Lopez DO Primary Care Provider [phone] Andrés Lopez DO Attending Provider Vivien Arceo Attending Provider Unavailable Care Teams Patient Care Team Team Status: Active Member Role/Relationship Status Dates Andrés Lopez DO Primary Care Provider Active Visit Care Team Team Status: Inactive Member Role/Relationship Status Dates Andrés Lopez DO Primary Care Provider Active Start: February 20, 2025 End: February 20, 2025Bruno Weber ProviderActiveStart: February 20, 2025 End: February 20, 2025 Visit Care Team Team Status: Active Member Role/Relationship Status Dates Andrés Lopez DO Primary Care Provider Active Start: March 16, 2025 Vivien Padron ProviderActiveStart: March 16, 2025 Visit Care Team Team Status: Inactive Member Role/Relationship Status Dates Andrés Lopez DO Primary Care Provider Active Start: April 04, 2025 End: April 04, 2025Andrés Lopez DOAttwilman ProviderActiveStart: April 04, 2025 End: April 04, 2025 Patient Care Team Team Status: Inactive Member Role/Relationship Status Dates Andrés Lopez DO Primary Care Provider Active Start: May 04, 2025 End: May 04, 2025Andrés Lopez DOAttending ProviderActiveStart: May 04, 2025 End: May 04, 2025 Chief Complaint and Reason for Visit Chief Complaint Admit Date est new patient February 20, 2025 9:44am Amb Documentation March 16, 2025 1 :12pm 1 month follow up April 04, 2025 10:44am rt ear pain May 04, 2025 1:24pm Reason for Visit Admit Date BMI 50.0-59.9, [...] with long-term current April 04, 2025 10:44am Essential hypertension May 04 1:24pm Nicotine use disorder May 04 1:24pm Otalgia of right ear May 04, 2025 1:24pm Allergies, Adverse Reactions, Alerts Allergen Type Severity Reaction Last Updated Verified Status Comments acetaminophen Allergy Unknown hives April 042024 10:56am Yes Active codeineAllergyUnknownVomiting, hivesNovember 2024 10:56amYesActive ibuprofenAllergyUnknownUnknown Reaction, shuts down kidneysNovember 2024 10:56amYesActive shuts down my kidneys .ketorolacAllergyUnknownVomiting, hives/seizuresNovember 2024 10:56amYesActivepropoxypheneAllergyUnknown Vomiting, hivesNovember 2024 10:56amYesActivetramadolAllergyUnknown Vomiting, hivesNovember 2024 10:56amYesActivevancomycinAllergyUnknown Unknown Reaction, hivesNovember 2024 10:56amYesActive shuts [...] Legal Sex Female (finding) Sex Assigned At BirthFemaleNovember 1974 Family History Relationship Condition Age at [...] Breast cancer screening by mammogram February 20, 2 025 9:26am Unknown Active Diabetes July 23, [...] February 20, 2025 8:49am Unk nown Active Intertrigo May 04, 2025 1:45pm Unknown A ctive Morbid obesity due to excess calories February [...] pain February 20, 2025 9:23am Unknown Active Otalgia of right ear May 04, 2025 1:29pm Unknow n Active Pacemaker January 23, 2019 3:02pm Unknown [...] 2021 1:45pmAspirin (Aspir-81) 81 mg Tablet,Delayed Release (Dr/Ec)Mbpkiphwzxbd06ABWLMhuqpDomcy 2018 12:00am August 20, 2022 2:10amAtorvastatin 20 mg xfnrfiKscjcghnediq48TEJMDlhsvDcdym 2018 12:00amMarch 2022 2:10amQuetiapine 300 mg epkidjQtixgmhbmywh085 MGPOBedtimeMar 2018 12:00amSeptember 2018 10:28amTizanidine 4 mg hlzovxTbcjzgcfqlec8EPLXBdueyxkZyivg 2018 12:00amApril 2018 1:59pm Venlafaxine 150 mg capsule,extended release 29ouYochdwwimbix437PEPRAovjfYfdir 2018 12:00amOctober 2018 7:33amLevothyroxine 75 mcg twzhlcYvmnxl38ECP PODailyMarch 2018 12:00amComplies with drug therapyZonisamide (Zonegran) 100 mg CydbiczWxwjvrghvfta090EDBADjjkyymRphxl 2018 12:00amApril 2018 2:00pmMetformin 1,000 mg kcubkyZkzfcb8861MXLHFnhwo dailyMer[facility] 2018 12:00am Complies with drug therapyPromethazine 25 mg PysxieKdbrxugzpweo95LZBBCnjjv 6 hours as needed for NauseaMar 2018 12:00amApril 2018 1:59pmLosartan 25 mg mzqojfSmlbqywojmum94OHOXCnwsmNceyt 2018 12:00amOctober 2018 7:31amOndansetron 4 mg Tablet,AtxeklqelpksmyLswcjcloaxvk3SFUHQhmz times daily as needed for Nausea And VomitingMar 2018 12:00amApril 2018 1:58pm Naratriptan 2.5 mg TabletDiscontinuedAs DirectedMar 2018 12:00amApril 2018 1:57pmNortriptyline (Pamelor) 50 mg TxvnqjjEwdsqzwnvnzw93ZWOUEmuxn July 23, 2018 12:00amApril 2018 1:57pmInsulin Lispro (Admelog Solostar U-100 Insulin) 100 unit/mL Insulin PenDiscontinuedUNITSUBCUTBefore meals and at bedtimeMarch 2018 12:00amApril 2018 9:01amMetoprolol Tartrate 25 mg EtgovmMullfjgfnggi35CRFWHbwkz dailyMarch 2018 12:00amApril 2018 1:57pmPregabalin (Lyrica) 200 mg glzxitoEhllisvgxhzm331EHCPXkofnBsdtv 2018 12:00amApril 2018 1:58pmInsulin Detemir U-100 (Levemir U-100 Insulin) 100 unit/mL FxbjwaasSvpvogynljck85ZUTRZRPDRRFhfpg dailyIn[facility] 2018 12:00amApril 2018 8:11pmOmeprazole Magnesium (Prilosec) 10 mg Susp,Delayed Release For XlclyCpugiwnnuzhr16QWNDUkdehPnhao 2018 12:00amSeptember 2024 11:03am Pregabalin (Lyrica) 300 mg MawwuidQdmcwgquugaz628BLRPGcevsyfBhxzb 2018 11:00pmApril 2018 12:12pmTizanidine (Zanaflex) 4 mg TpuhueQidgykjgtivh8CM POThree times daily as needed for Muscle SpasmApril 2018 11:00pmApril 2018 12:12pmMeloxicam 15 mg ZfhpziRgsybshbjwzn32HFUCGtetjKinah 2018 11:00pmSeptember 2018 10:28amAmitriptyline 25 mg NknisvNwxssnfnvvdz32CMUZ Daily at bedtimeApril 2018 11:00pmMar 2022 2:10amPolyethylene Glycol 3350 (Miralax) 17 gram/dose MxqksiKxzabzcqctsc35VUJSAaqstItral 2018 11:00pmOctober 2018 7:33amOxybutynin Chloride 5 mg EknzlwMhchdkzlvbbo4OAUG Twice dailyApril 2018 11:00pmOctober 2018 7:33amChlorhexidine Gluconate (Hibiclens) 4 % OhtipbLcixlsovpkzh3CGIZHOVBSHXDDHvsmf a WeekApril 2018 11:00pmOctober 2018 7:29amLidocaine 5 % OintmentDiscontinued1 APPLICTOPICALTwice daily as needed for PainApril 2018 11:00pmOctober 2018 7:31amDivalproex 250 mg Tablet,Delayed Release (Dr/Ec)Qtdrbjthehsa851GNUY Twice dailyApril 2018 11:00pmApril 2018 12:12pmInsulin Lispro [...] GLUCOSE Instructions: STARTING AT 150MG AT BG CHECKSApril 2018 11:00pmSeptember 2024 10:58amPatient uses up to 200 Units of Insulin delivered via [employer]. Please contact the information source for Protocol details.Tizanidine 4 mg JyuuvuFrrixcxldexa4JXHCTgyup times daily as needed for Fcpcymbl01435Vdumx 2018 11:00pmAugust 2018 2:41pmDivalproex 500 mg Tablet,Delayed Release (Dr/Ec)Gfplrojmgrln378GWXDYxzxu hedou07300Ejodb 2018 11:00pmMarch 2022 2:10amIntractable seizure disorder Epilepsy, unspecified, intractable, without status epilepticusPregabalin (Lyrica) 300 mg QpmqxzeUbxvrtjbagda737KCUPFqtaapw53Kyabh 2018 11:54am January 29, 2019 10:28amDiabetes mellitus Type 2 diabetes mellitus without complicationsLurasidone (Latuda) 20 mg tablet DiscontinuedAugust 2018 11:00pmSeptember 2018 10:28amTizanidine 4 mg uxvofcVzjacbsqhtkm80YPZREkxwi times daily as needed for Headachegust 2018 2:40pmSept2018 10:28amQuetiapine 25 mg BxptcbRgrcagxahywp22BQCS Daily at khgalxt81Wfateprix2018 11:00pmMar 2019 7:20pmVancomycin 1.5 gram recon qeqwDtwdvgcsdifc5PGQEW1O79151Mfkqqnifl 6th, 2019 11:00pmOctober 2018 7:31amMetoprolol Succinate 50 mg Tablet Extended Release 24 Hr Upblhyvyspou53ZGVBPjypq86Xtejashlm 6th, 2019 11:00pmIn[facility] 2022 2:13am Insulin Detemir U-100 (Levemir Flextouch U100 Insulin) 100 unit/mL (3 mL) Insulin DchDlnbpoheuhrn79HQJEIDIVQZTRynbn09Cxojvzsph 6th, 2019 11:00pmMarch 2019 2:09pmMicafungin 100 mg recon nteeRzksnemojlcf428NRVCS70P23912 January 28, 2019 11:00pmOctober 2018 7:33amadminister over 60 mins Meloxicam 15 mg TwbmdbVgghzaihdoor59JCUQKnlzp as needed for ygok47Oadfdayer 7th, 2019 10:26amOctober 2018 7:32amPregabalin (Lyrica) 300 mg Capsule Mgsuiazkwdbf703NIGPEqcjcyh31Rerlzywja 7th, 2019 10:26amMarch 2019 5:25pm Diabetes mellitus Type 2 diabetes mellitus without complicationsLevetiracetam 500 mg tablet Ytknlgqwznxe415DUITOofxl dailyMer[facility] 2019 11:00pmSept2024 11:00amPregabalin 150 mg nlhpwnuRyhdevnsdkuh704KVVVGrffbyyAdhqc 2019 11:00pmSeptember 2024 11:04amQuetiapine 400 mg vsllgvCnlkitgmnqbg956LJMN BedtimeMar 2019 11:00pmNovember 2024 11:25ampotassium chloride 20 mEq gniektYujexqkccsjk65DYWQSRmxwgLugjp 12th, 2020 11:00pmMar 2019 2:09pmPotassium Chloride 20 mEq Tablet Extended XgvsiwvQgfarhkuxyhh17QNQRBMixsh August 04, 2019 11:00pmMar 2022 2:13amCephalexin 500 mg capsule Nlxezmmhccgs320ELOULepxf kxufj7768Lavfh 12th, 2020 11:00pmApril 2019 7:10amLisinopril 40 mg lbgpdxHvcffcaecfdl20IMBEPydvzYumdc 2022 11:00pm August 22, 2022 12:34pmTizanidine 4 mg kztkowUncwukqapmoy8GVXIBtfof times daily as needed for Muscle SpasmMar 2022 11:00pmApril 2022 6:07am Promethazine 25 mg tstsgnVpwxgq72KNZVY3H as needed for NauseaMar 2022 11:00pmComplies with drug therapyDoxycycline Hyclate 100 mg tabletDiscontinued 100MGPOTwice dailyMar 2022 11:00pmMar 2022 12:34pmAmoxicillin- Pot Clavulanate 500-125 mg ymddxxRptljahsrhms9ABISSX0S04970Itjyc 2022 11:00pmApril 2022 6:00amAtorvastatin 40 mg PfsxnfZvmytx18ODJXJvium evening 301Mar 2022 11:00pmComplies with drug therapyAspirin 81 mg Tablet,Delayed Release (Dr/Ec)Llgyld79DQTCUtfqk177Ghcit 2022 11:00pm Complies with drug therapyErgocalciferol (Vitamin D2) 1,250 mcg (50,000 unit) UfzwdmxXzizvuuifcqb6444EZDUIH6F46Fhcws 2022 11:00pmApr2022 6:09am Saccharomyces Boulardii 250 mg HasqvzqYvgosceoxoxj359OAQYRuame daily with meals 600March 2022 11:00pmNovember 2024 11:25amLisinopril 40 mg tablet Eurvvzubukag27EXOQJr Hloygdqq548Jrynl 2022 12:31pmApril 2022 6:09am Take half a tablet daily for 2 days then 1 tablet dailyChlorthalidone 25 mg ldabmqArnhmc55RBUONtpuvVmlnk 2022 11:00pmComplies with drug therapy Ergocalciferol (Vitamin D2) 1,250 mcg (50,000 unit) wwqmvljFgwsdabfyvke6924RHXRW every weekApril 2022 11:00pmSeptember 2024 10:57amAlbuterol Sulfate (Ventolin Hfa) 90 mcg/actuation HFA aerosol hxxgfxoImksaynldzfa1DOZZEDUAAQKMYY P7PZfjkt 2022 11:00pmNov2024 11:21amMetoprolol Tartrate 25 mg oacqgjKqddyvnlqmxx59ZLONBdyrm dailyApril 2022 11:00pmSeptember 2024 11:29amTizanidine 6 mg niazrshTettctvxchvi74SAXECimyyyuGhydd 2022 11:00pm February 20, 2025 11:07amLisinopril 40 mg dsgvelBncnpuguapeo39QIXPXjtzzNvyql 2022 6:09amNovember 2024 11:23amTake half a tablet daily for 2 days then 1 tablet dailyMetoprolol Tartrate 25 mg iihxstMtbapf18VLIOYgbyrXjotrhheu 2024 11:02amComplies with drug therapyPregabalin 75 mg dkqnlxpSbwaci59PLJC DailySept2024 11:00pmComplies with drug therapyInsulin Glargine (Lantus U-100 Insulin) 100 unit/mL solutionActiveUNITSUBCUTSeptember 2024 11:00pmComplies with drug therapyCitalopram 40 mg eohljfMtakuz51UNILEzitg at bedtimeSept2024 11:00pmComplies with drug therapySennosides-Docusate Sodium (Senna Plus) 8.6-50 mg uyujriAoopgomimorr8RTJ-YUMPELpovf at bedtime February 19, 2025 11:00pmApril 04, 2025 11:25amClopidogrel 75 mg tablet Cwkvzz26KZNTHwdckIvreazvmx 28th, 2025 11:00pmComplies with drug therapy Nortriptyline 25 mg przwxjoJigpno11FWOIWbsuw at bedtimeS2024 11:00pmComplies with drug therapyOxycodone-Acetaminophen (Percocet) 5-325 mg pswkjwIzhnxvnerorh2IVWCJNkubw 8 hours as cudwls0Selwtuzkp2024 11:00pm April 04, 2025 11:24amPantoprazole 40 mg tablet,delayed release (DR/EC) Rjkins59NDNEQxnaXvhnlwhye 28th, 2025 11:00pmComplies with drug therapyCalcium Carbonate (Antacid (Calcium Carbonate)) 200 mg calcium (500 mg) tablet,chewable Vksrkh626CWXSLkne times dailyFebruary 19, 2025 11:00pmComplies with drug therapyDocusate Sodium 100 mg fbkuromKbbzyi184QOGFNoacpXgoohanlz 28th, 2025 11:00pmComplies with drug therapyAlbuterol Sulfate (Ventolin Hfa) 90 mcg/actuation HFA aerosol slucvbeBtetto5PDTIFXRRAECGYFTKWDN 4-6 HOURS as needed February 19, 2025 11:00pmComplies with drug therapyInsulin Aspart U-100 100 unit/mL (3 mL) insulin penActiveSUBCUTS2024 11:00pmComplies with drug therapyTizanidine 4 mg jgmrqdqLvmqcvbfyqsa8PCKGVhuyl at bedtime as needed February 19, 2025 11:00pmApril 04, 2025 11:25amLevetiracetam 1,000 mg hfmoevVpctdj6929VXSPGyeelkwrt 28th, 2025 11:00pmComplies with drug therapy Paliperidone 9 mg tablet extended release 18kmTcuaku0NYBGZmdwwgyfu 28th, 2025 11:00pmComplies with drug therapyLoratadine (Allergy Relief (Loratadine)) 10 mg yduinteLmtxhy14FUBCTrbnbXbcxbnigk 28th, 2025 11:00pmComplies with drug therapy Cyclobenzaprine 10 mg eabyneKzxoav36IQIOMnawc at pqexulz44771Ogmuhccz 11th, 2025 12:00amComplies with drug therapyQuetiapine 400 mg znsylkUvdwru784FOVXDjvruex April 04, 2025 11:24amComplies with drug therapy Immunizations Immunization Event Date Not Given Reason Dose Number Fraud Examiner Lot Number Reason(s) Given Vaccine Information Statement (VIS) Detail Administration Location COVID-19 mRNA, Comirnaty (Pfizer) January Medical Equipment Device Date Implanted Device Details Posterior-chamber intraocula r lens, pseudophakic September 12, 2021 STEVO: [id number] Issuing Agency: [employer] Device Id: [id number] Expiration Date: 2023-12-16 Serial Number: [id number] port/catheterApril 2019UDI: [id number] Issuing Agency: [employer] Device Id: [id number] Expiration Date: 2020-09-21 Lot Number: [id number] Vital Signs Vital Reading Result Reference Range Collection Date/Time Height 62 [in_i] February 20, 2025 8:90fbBujuhq991.87 kgSept2024 8:58amBody Qbophvxwfit23.4 [degF]97.6-99.0pt2024 8:58amHeart Rate90 /min 60-100February 20, 2025 8:58amRespiratory rate18 /opj71-53Jbxsdzusa 29th, 2025 8:58amOxygen saturation by Pulse bvytzrgo67 %95-100Sept2024 8:58amBP Sgnrorfs990 mm[Hg]100-140Sept2024 8:58amBP Wjengpjcn76 mm[Hg]60-100Sept2024 8:58amBMI (Body Mass Index)50.3 kg/g5Kkazyqtrx2024 8:79frPylpss50 [in_i]April 04, 2025 10:33svJkbwws704.37 kg April 04, 2025 10:57amBody Gqgowwvjzpe78.8 [degF]97.6-99.0April 04, 2025 10:57amHeart Rate81 /emd52-712FpzxznhcApril 04, 2025 10:57amRespiratory rate18 /dlf25-52QkzenhllApril 04, 2025 10:57amOxygen saturation by Pulse wnbaqoxa77 % 95-100April 04, 2025 10:57amBP Tzgcdjhp293 mm[Hg]100-140April 04, 2025 10:57amBP Wmlkfuqvx27 mm[Hg]60-100April 04, 2025 10:57amBMI (Body Mass Index)49.7 kg/m1RlvhwhdtApril 04, 2025 10:57amBody Vrapgzzufoa96.8 [degF]97.6-99.0 May 04, 2025 1:31pmHeart Rate97 /shg45-353Adsearrp 2024 1:31pm Respiratory rate18 /fch33-10Gntadaok 2024 1:31pmOxygen saturation by Pulse gmoyxjwr01 %95-100Deceer 2024 1:31pmBP Bmwrmiuj301 mm[Hg]100-140 May 04, 2025 1:31pmBP Stwglgbzh16 mm[Hg]60-100Deceer 2024 1:31pm Advance Directives Advance Directive Response Recorded Date/ Time Advance Directives No February 23, 2017 1:30pm Insurance Providers Guarantor Lisa Jyoti Organ Address [address] [place], [place] [id number] Info.Home Phone: Coverage Status Update:2024 Payer Group Member ID Coverage Type Subscriber Relationship to Subscriber Effective Date Expiration Date Medicaid [id number] J Organ Id: [id number] [address] [place] [id number] Home Phone: Email: [id number] Medicaid [id number] J Organ Id: [id number] [address] [place] [id number] Home Phone: Email: [id number] Medicaid [id number] J Organ Id: [id number] [address] [place] [id number] Home Phone: Email: [id number] Encounters Encounter Location(s) Arrival/Admit Date Discharge/Departure Date Discharge/Departure Disposition Provider(s) Departed Physician/ Provider Office Visit -[facility] February 20, 2025 9:44am February 20, 2025 10:21am Discharged to home care or self care (routine discharge) Andrés Lopez DO Non-patient / Non-visit -[facility] March 16, 2025 1:12pm Vviien ManringDeparted Physician/Provider [facility] 20[facility] 10:44amNove 2024 11:17amDischarged to home care or self care (routine discharge)LYLE Webereparted Physician/Provider Office Visit-[facility] 2024 1:24pmDece2024 1:45pmDischarged to home care or self care (routine [...] 10:44am Right knee pain Unknown April 04, 2 025 10:44am Type 2 diabetes mellitus wit h circulatory disorder, with long-term current Unknown April 04, 2025 1 0:44am Essential hypertension Unknown May 04, 2025 1:24pm Nicotine use disorder Unknown April 242024 1:24pm Otalgia of right ear Unknown May 042024 1:24pm Assessments Diagnosis Onset Date Resolution Status Admit [...] 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 Ezyv-pfs-cvuwszf pain medicine as needed (Tylenol) Patient requesting [...] changes, or nipple discharge Author Andrés Lopez [facility] CenterJam 2024 1:30pmPatient currently uses nicotine in the form of [...] situations (concurrent alcohol use and social cues) Goal BP < 130 systolic (preferably <120/80). Patient's BP is decently well controlled. Continue management of essential hypertension with lifestyle modifications: ??? Reduce processed sugar and ultraprocessed foods ??? DASH diet ??? Weight control ??? Regular physical activity Emphasized the importance of adhering to prescribed antihypertensive regimen. Continue to monitor home blood pressure readings Based on history and physical examination, the patient likely has acute otitis media [left vs right] that has the potential to be bacterial in etiology. Recommend antibiotic therapy with cefdinir 300 mg twice daily x 7 days in addition to supportive care: ??? Increase oral hydration ??? Saline nasal spray/irrigation ??? OTC decongestions or antihistamines as tolerated ??? Acetaminophen/ibuprofen as needed for fever or discomfort Also discussed using Flonase BID x 14 days in order to reduce middle ear effusion If any red flag symptoms occur (persistent high fever, shortness of breath, chest pain, worsening of symptoms after initial improvement), then the patient should either return or go to the emergency department Author Andrés Lopez [facility] CenterAuthoredNovember 2024 11:24amPatient's T2DM is NOT well controlled. Patient is [...] elevating the leg to reduce swelling ??? Pjzh-pdo-bieilvs pain medicine as needed (Tylenol) Patient seeing orthopedic surgeon in [place] for her knee as well as her back. She is having some pain in that right knee today as well as frequent headaches. Will give a different muscle relaxer to take PRN. Patient currently uses nicotine in the form [...] of adhering to prescribed lipid lowering regimen. I was able to obtain records of most recent medication reconciliation. Will go through and update current active medications as best that can. Future Tests Future scheduled test information is unavailable Pending Tests Test Name Ordered Date Scheduled Date MM screening mammo BI w/CAD February 20, 2025 9:25am 1 Days Future Visits Future appointment information is unavailable Future Procedures Future procedure information is unavailable Future Medications Future medication information is unavailable Patient Instructions Patient instructions are unavailable
[2025-05-15 19:56] VITALS: BP 131/100; PULSE 109; TEMP 36.3; O2SAT 100; BMI 49.4
--- NOTE | 2025-05-15 20:21 | CT_ITS ---
The [address] [address] Patient Name: ADDIE SANDERS MRN: [id number] date: 1975 Sex: F Assigned Patient Location: ER Current Patient Location: [facility] Accession/Order Number: [id number] Exam Date: 05/15/2025 20:40 Report Date: 05/15/2025 21:08 At the request of: MICHI MENDEZ MD Procedure: CT lumbar spine wo con CT LUMBAR SPINE WITHOUT CONTRAST TECHNIQUE: Axial acquisition of the lumbar spine obtained with the sagittal and coronal reconstructed imaging.The CT exam was performed using one or more the following dose reduction techniques: Automated exposure control, adjustment of the MA and/or Kv according to patient size, or use of the iterative reconstruction technique. HISTORY: Lumbar pain. Lower extremity weakness. COMPARISON: None FINDINGS: The last fully segmented vertebral pair is operationally defined as L5/S1. POST SURGERY CHANGES: None BONY ALIGNMENT: Adequate bony alignment identified. SPINAL CANAL:Patent bony central canal LUMBAR FRACTURE: None BONY LESIONS: None KIDNEYS: No hydronephrosis is identified. Punctate left nephrolithiasis AORTA: No aortic aneurysm is seen. Adequate disc spaces. Endplate spurs. Bilateral multilevel facet degeneration suspected disc herniation at the L4 level extending into the central canal and neural foramen. Suspected the diffuse disc bulge at the L4-5 level. Assessment of disc herniation limited with CT examination CT/CT lumbar spine wo con IMPRESSION:Levels of disc herniation at the L4-5 and L5-S1 level. Ietb-ub-imibkazb extension into the central canal and extension into the neural foramen. This can be better assessed with MRI lumbar spine. No acute bony findings. Degenerative facet change. Impression dictated by: Ben Frost M.D. 05/15/2025 9:08 PM Dictation Location: [employer] Electronically authenticated by: [id number] Y Date: 05/15/2025 21:08
--- NOTE | 2025-05-15 20:23 | ED.NEUROSD1 ---
HPI - Neuro Symptoms/Deficit General Chief Complaint: Weakness Stated Complaint: Back pain, paralysis Time Seen by Provider: 05/15/25 20:04 Source: patient Mode of arrival: ambulance Limitations: no limitations History of Present Illness HPI Narrative: This 42-year-old female history of diabetes and history of a stroke who states that she recently saw an orthopedic surgeon and was told that her lumbar spine is shot and is waiting for an MRI presents for evaluation. The patient states she was sitting on the couch today and went to get up but her lower extremities would not work. She was not able to support her weight. She states that her legs are weak and she cannot feel them and they are also numb. She has a history of urinary incontinence at her baseline. This is unchanged. She states that she fell late last night in the shower. She is has a history of poorly controlled diabetes and her sugar on her monitor at this time is reading high. She states that after her fall last night she had to take a Zanaflex during the night due to back pain. She typically walks with a walker and uses a wheelchair for ambulation. Related Data Home Medications ?Medication ?Instructions ?Recorded ?Confirmed albuterol sulfate 90 mcg/actuation 1 puff inhalation Q4H PRN 10/23/22 12/31/24 aerosol inhaler (Ventolin HFA) shortness of breath or wheezing aspirin 81 mg tablet,delayed 81 mg PO .daily 10/23/22 12/31/24 release chlorthalidone 25 mg tablet 25 mg PO .daily 10/23/22 12/31/24 levothyroxine 75 mcg tablet 75 mcg PO .ACB 06/25/24 12/31/24 loratadine 10 mg tablet 10 mg PO .QD 06/25/24 12/31/24 nortriptyline 25 mg capsule 25 mg PO .QHS 06/25/24 12/31/24 citalopram 40 mg tablet 40 mg PO DAILY 09/30/24 12/31/24 levetiracetam 1,000 mg tablet 1,000 mg PO Q12H 09/30/24 12/31/24 metoprolol succinate 50 mg 50 mg PO DAILY 09/30/24 12/31/24 tablet,extended release 24 hr paliperidone 9 mg tablet,extended 9 mg PO Q24H 09/30/24 12/31/24 release 24 hr pantoprazole 40 mg tablet,delayed 40 mg PO DAILY 09/30/24 12/31/24 release pregabalin 75 mg capsule 75 mg PO Q12H 09/30/24 12/31/24 tizanidine 4 mg tablet 8 mg PO BEDTIME 09/30/24 12/31/24 Previous Rx's ?Medication ?Instructions ?Recorded atorvastatin 40 mg tablet 40 mg PO QHS 90 days #90 tabs 12/30/24 clopidogrel 75 mg tablet 75 mg PO QD 21 days #21 tabs 12/30/24 calcium carbonate 500 mg (2.5 x 200 mg calcium (500 01/03/25 mg)) PO TID PRN Indigestion or heartburn #0 tabs docusate sodium 100 mg capsule 100 mg PO BID PRN Constipation #0 01/03/25 caps insulin aspart U-100 100 unit/mL 3 - 15 unit (0.03 - 0.15 mL) 01/03/25 (3 mL) subcutaneous pen (Novolog subcut ACHS #0 mL FlexPen U-100 Insulin aspart) insulin aspart U-100 100 unit/mL 7 unit (0.07 mL) subcut ACHS #0 mL 01/03/25 (3 mL) subcutaneous pen (Novolog FlexPen U-100 Insulin aspart) insulin glargine 100 unit/mL (3 50 unit (0.5 mL) SQ QHS #0 mL 01/03/25 mL) subcutaneous pen (Lantus Solostar U-100 Insulin) oxycodone-acetaminophen 5 mg-325 1 tab PO Q8H PRN pain 3 days #15 01/03/25 mg tablet tabs quetiapine 100 mg tablet 400 mg (4 x 100 mg) PO QHS #0 tabs 01/03/25 sennosides 8.6 mg-docusate sodium 1 tab PO QD PRN Constipation #0 01/03/25 50 mg tablet (Senna Plus) tabs Allergies Allergy/AdvReac Type Severity Reaction Status Date / Time Iodinated Contrast Media Allergy Unknown Rash Verified 05/15/25 20:00 latex Allergy Rash Verified 05/15/25 20:00 vancomycin Allergy Rash Verified 05/15/25 20:00 acetaminophen (From AdvReac Rash Verified 05/15/25 20:00 Tatiana-N) adhesive tape AdvReac Rash Verified 05/15/25 20:00 codeine AdvReac Rash Verified 05/15/25 20:00 dextrose 5 % in water (From AdvReac Rash Verified 05/15/25 20:00 Zyvox) fentanyl AdvReac Rash Verified 05/15/25 20:00 ibuprofen AdvReac Rash Verified 05/15/25 20:00 linezolid (From Zyvox) AdvReac Rash Verified 05/15/25 20:00 propoxyphene (From AdvReac Rash Verified 05/15/25 20:00 Darvocet-N) Review of Systems ROS Status of ROS 10 or more systems reviewed and unremarkable except as noted in history and below [facility] Medical History (Updated 05/15/25 @ 22:51 by Farideh Archer MD) Pacemaker ?Z95.0 - Presence of cardiac pacemaker (ICD-10) CKD (chronic kidney disease) ?N18.9 - Chronic kidney disease, unspecified (ICD-10) Acute CVA (cerebrovascular accident) ?I63.9 - Cerebral infarction, unspecified (ICD-10) Hyperglycemia ?R73.9 - Hyperglycemia, unspecified (ICD-10) Generalized seizure ?R56.9 - Unspecified convulsions (ICD-10) Uncontrolled diabetes mellitus Cholecystectomy planned Hysterectomy planned CHF (congestive heart failure) ?I50.9 - Heart failure, unspecified (ICD-10) Schizo affective schizophrenia ?F25.9 - Schizoaffective disorder, unspecified (ICD-10) Bipolar 1 disorder ?F31.9 - Bipolar disorder, unspecified (ICD-10) Depressed ?F32.A - Depression, unspecified (ICD-10) Diabetes ?E11.9 - Type 2 diabetes mellitus without complications (ICD-10) Family History Father Family history of CHF (congestive heart failure) Family history of diabetes mellitus Family history of myocardial infarction Mother Family history of COPD (chronic obstructive pulmonary disease) Family history of stroke Social History (Updated 12/31/24 @ 20:17 by Ne Mejias RN) Within the past year, how often did you have a drink containing alcohol: never Score interpretation: A score less than 3 is consistent with normal alcohol consumption. Smoking status: Current every day smoker Second hand tobacco smoke exposure: Yes Non-prescribed substance use: denies use Known occupational exposures/hazards: No Highest level of school completed/degree received: 11th grade In a typical week, how many times do you talk on the telephone with family, friends, or neighbors: 3 or more times per week Little interest or pleasure in doing things: not at all Feeling down, depressed, or hopeless: not at all Feel stressed/tense/nervous/anxious/difficulty sleeping: only a little Life stressors: other Life stressor details: Pt was discharged to a SNF on 12/30/2024. Was there for approx 12 hours, and family arrived to sign her out r/t pt stated complaint of that usp was not for me. Now states that she is concerned about finding a rehab. Exam Narrative Exam Narrative: Vital signs and Nursing Notes reviewed: Is afebrile, tachycardic with a pulse of 109, blood pressure is mildly elevated at 131/100, she is not hypoxic with pulse ox of 100% on room air General: Awake, alert, oriented, no acute distress, lying comfortably on the stretcher on her right side. I asked the patient to roll over onto her back and she used both feet to help to move herself onto her back. HEENT: Normocephalic atraumatic, mucous membranes are moist and pink, eyes are clear, normal conjunctiva, vision is grossly intact, posterior pharynx is normal in appearance. Neck: Supple, no meningeal signs, no anterior or posterior cervical lymphadenopathy Chest: Lungs are clear to auscultation with good air entry, there is no wheezing rhonchi or rales appreciated no accessory muscle use, patient is speaking in complete sentences-no chest wall tenderness to palpation CVS: Regular rate and rhythm S1-S2, no murmurs rubs or gallops, pulses are brisk and equal bilaterally ABD: Obese, soft, nondistended, nontender, no rebound guarding or rigidity, bowel sounds are normal, no pulsatile masses appreciated Extremities: Complains of not been able to feel her lower extremities and states she cannot use them, she uses both feet to help to move herself onto her back while she was lying on her right side. She does not participate in any active range of motion. Deep tendon reflexes are minimal. She denies that she can feel me pinching her medial thighs. Feet are warm and sensate. Skin: Normal in appearance without rash,pallor, petechiae or purpura Neuro: Limited movement of both lower extremities with decreased deep tendon reflexes speech is clear, patient able to use her feet to roll herself onto her back. Refuses any additional attempts at moving her lower extremities or participating in range of motion. Constitutional Vital Signs, click to edit/add: Last Vital Signs Temp 97.4 F L 05/15/25 19:56 Pulse 109 H 05/15/25 19:56 Resp 18 05/15/25 19:56 BP 131/100 H 05/15/25 19:56 Pulse Ox 100 05/15/25 19:56 O2 Del Method Room Air 05/15/25 19:56 Course Vital Signs Vital signs: Vital Signs Temperature 97.4 F L 05/15/25 19:56 Pulse Rate 109 H 05/15/25 19:56 Respiratory Rate 18 05/15/25 19:56 Blood Pressure 131/100 H 05/15/25 19:56 Pulse Oximetry 100 05/15/25 19:56 Oxygen Delivery Method Room Air 05/15/25 19:56 Temperature 97.4 F L 05/15/25 19:56 Pulse Rate 109 H 05/15/25 19:56 Respiratory Rate 18 05/15/25 19:56 Blood Pressure 131/100 H 05/15/25 19:56 Pulse Oximetry 100 05/15/25 19:56 Oxygen Delivery Method Room Air 05/15/25 19:56 MDM - Neuro Symptoms/Deficit MDM Narrative Medical decision making narrative: This 50-year-old female with a history of chronic back pain, obesity, diabetes, CVA who walks with a walker and or uses a wheelchair for ambulation presents for evaluation of lower extremity weakness and numbness. The patient is typically incontinent of urine and wears a diaper. She has not had any loss of stool. She states that she was told in the past not to fall because her low back was a mess . She was recently seen by a doctor/neurosurgeon whose name begins with Nellie in the [facility] area. Since then she has moved back to [facility] and is not following with him. She states she has not seen him since relocating to [place]. The patient states that she fell last night and her bathroom and was sitting on her couch this morning trying to get up when her legs would not work. She does have decreased DTRs. She states that her legs do not work at all however she is able to put both feet down to move to a supine position from lying on her right side. The patient's glucose monitor read high in the emergency department. Her port was accessed and she was given IV fluids and a dose of Percocet for her pain. Routine labs are reviewed. She has normal electrolytes with the exception of an elevated glucose at 427. She has a stable hemoglobin and normal white count. CT scan of the lumbar spine shows 2 levels of disc herniation with mild to moderate extension into the central canal and neural foramen. Lumbar spine MRI imaging is unavailable at this time. The case was discussed with Dr Barone at [facility] request that I inquire as to whether this patient is currently still seeing a neurosurgeon in the [place] area. She denies that she is seeing this doctor and does not even know his name. He was agreeable to seeing her. Case was then discussed with Dr. Gonzalez and she is accepted for transfer. We did review her labs and she was given a dose of Solu-Medrol despite her elevated glucose. Medical Records Attestation: I reviewed the patient's medical records. Lab Data Attestation: I reviewed the patient's lab results. Labs: Lab Results 05/15/25 Range/Units 21:54 WBC 10.6 (4.0-11.0) 10^3/uL RBC 4.15 L (4.20-5.40) 10^6/uL Hgb 12.8 (12.0-16.0) g/dL Hct 37.7 (36.0-48.0) % MCV 90.8 (81.0-99.0) fL MCH 30.8 (26.7-34.0) pg MCHC 34.0 (29.9-35.2) g/dL RDW 13.4 (11.0-15.0) % Plt Count 342 (150-450) 10^3/uL MPV 9.0 L (9.5-13.5) fL Neut % (Auto) 75.3 H (43.0-75.0) % Lymph % (Auto) 16.4 L (20.5-60.0) % Butts % (Auto) 5.6 (1.7-12.0) % Eos % (Auto) 1.7 (0.9-7.0) % Baso % (Auto) 0.5 (0.2-2.0) % Neut # (Auto) 8.0 H (1.4-6.5) 10^3/uL Lymph # (Auto) 1.7 (1.2-3.8) 10^3/uL Butts # (Auto) 0.6 (0.3-0.8) 10^3/uL Eos # (Auto) 0.2 (0.0-0.7) 10^3/uL Baso # (Auto) 0.1 (0.0-0.1) 10^3/uL Abs Immat Gran (auto) 0.05 H (0.00-0.03) 10^3/uL Imm/Tot Granulo (auto) 0.5 (0.0-0.5) % Sodium 137 (136-145) mmol/L Potassium 4.4 (3.5-5.1) mmol/L Chloride 100 (98-107) mmol/L Carbon Dioxide 27.3 (21.0-32.0) mmol/L Anion Gap 14.1 BUN 28.0 H (7.0-18.0) mg/dL Creatinine 1.88 H (0.55-1.02) mg/dL Est GFR ( Amer) 35 L (>=60 mL/min/1.73m^2) Est GFR (Non-Af Amer) 29 L (>=60 mL/min/1.73m^2) BUN/Creatinine Ratio 14.9 Glucose 427 H (74-106) mg/dL Calcium 9.6 (8.5-10.1) mg/dL Total Bilirubin 0.6 (0.2-1.0) mg/dL AST 9 L (15-37) U/L ALT 12 L (14-59) U/L Alkaline Phosphatase 121 H (46-116) U/L Total Protein 7.3 (6.4-8.2) g/dL Albumin 3.3 L (3.4-5.0) g/dL Globulin 4.0 g/dL Albumin/Globulin Ratio 0.[address] scan - pelvis: Radiologist's impression: ITS Impressions Lumbar Spine CT 05/15/25 20:21 IMPRESSION:Levels of disc herniation at the L4-5 and L5-S1 level. [id number] extension into the central canal and extension into the neural foramen. This can be better assessed with MRI lumbar spine. No acute bony findings. Degenerative facet change. Impression dictated by: Ben Frost M.D. 05/15/2025 9:08 PM Dictation Location: [employer] Electronically authenticated by: [id number] Y Date: 05/15/2025 21:08 Discharge Plan Discharge Chief Complaint: Weakness Clinical Impression: Herniated intervertebral disc of lumbar spine, Bilateral leg weakness, Hyperglycemia Patient Disposition: [facility] Time of Disposition Decision: 22:50 Discharge Location: [facility] Mode of Transportation: EMS
--- OUTSIDE RECORDS SUMMARY | 2025-05-15 21:04 | XMS_ITS | Patient Health Record ---
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 Name Role Phone Mario Baum DO Primary Care Provider Juanjo Snow Unavailable [phone] Reason For Referral No Information Problems Problem Type SNOMED Code ICD Code Onset Dates Problem Status W/U Status Risk Notes Problem Peripheral venous in sufficiency (11657824) Venous insufficiency (chronic) (peripheral) (I87.2) ActiveconfirmedProblemChronic ulcer of foot (941834268)Non-pressure chronic ulcer of other part of left foot with fat layer exposed (L97.522)Activeconfirmed ProblemDiabetic peripheral neuropathy (659958544)Diabetic peripheral neuropathy (E11.42)ActiveconfirmedProblemHypertension (85958630)Hypertension (I10)Active confirmedProblemAnxiety (20688234)Anxiety (F41.9)ActiveconfirmedProblemType 2 diabetes mellitus (41295308)Type 2 diabetes mellitus (E11.9)Activeconfirmed ProblemLong-term current use of insulin (477349472)Current use of insulin (Z79.4)Activeconfirmed Encounters Encounter Location Date Provider Diagnosis [facility] ([facility]) [address] [address] [place] [address] 08/09/2024 Juanjo Amaro Plan Of Treatment No Information Insurance Providers Payer Name Payer Address Payer Phone Subscriber Number Group Number Insured Name Patient Relationship to Insured Coverage Start Date Coverage End Date [employer] [place] [employer] [address] [facility] [place] [address] [id number] [employer] - patient is the [id number]/25/2022
--- OUTSIDE RECORDS SUMMARY | 2025-05-15 21:04 | XMS_ITS | Clinical Summary ---
Author Organization [facility] Address [facility] [place] [address] Care Team Providers Care Lieutenant Firefighter Name Role Phone System, Provider Not In Primary Care Provider Un available Allergies Active AllergyReactionsCriticalityNoted PjzlTddwextoPzwtmoflLzbnerx37/23/2018 WdpdazfBzpheq99/24/2008 Other reaction(s): Aggressive Behavior ProchlorperazineOther (See Comments)06/04/2023 She reports Compazine made her feel anxious and grumpy Ct: Iodinated Contrast- Oral And Iv DyeOther (See Comments)09/06/2018 Shuts my kidneys down Zmfanwvn86/18/2019IbuprofenOther (See Comments)06/03/2020 shuts kidney down IodidesOther (See Comments)High02/16/2017 Renal compromise KetorolacHives,Other (See Comments),Rash,GI HlmsfqtzwcgFvhv19/17/2011 Messes with seizures Unsure of reaction UexxcPxjiawowqp80/08/2015LinezolidNausea And Vomiting,GI Urojlnlrnsf54/28/2023 LorazepamOther (See Comments)12/08/2021Nsaids (Non-Steroidal Anti-Inflammatory Drug)03/30/2017 shuts my kidney's down PropoxypheneGI IorpsugsvctKmx42/01/2016Propoxyphene N-AcetaminophenGI DufraugwbtlEgczew22/24/2008TramadolHives,Rash,Other (See Comments),GI JkabnxvwcsoHymu61/23/2012VancomycinOther (See Comments)06/03/2020 Shuts kidney down Medications MedicationSigDispense [...] months . 1 each ctive Dexcom G6 Concrete Pourer [facility] [place] [place] Indications:Type 2 diabetes mellitus with diabetic polyneuropathy, [...] with long- term current use of insulin ([facility])Inject up to 150 units once daily via [...] Touch Verio . 100 strip ctive lancets [facility] [place] [place] Indications:Type 2 diabetes mellitus with diabetic polyneuropathy, [...] 7 DAYS AND AFTER IF TOLERATED FOR AJETYZEQH46/02/2025Active hydrOXYzine (VISTARIL) 50 MG capsule Take 1 [...] MOUTH EVERYDAY AT BEDTIME FOR SLEEP AND TJGUDJN5103/01/2025 Active paliperidone (INVEGA) 9 MG 24 hr tablet Take 1 (one) tablet (9 mg total) by mouth daily .03/01/2025tive clopidogreL (PLAVIX) 75 mg tablet Take 1 (one) tablet (75 mg total) by mouth .12/30/2024tive insulin glargine (LANTUS) 100 unit/mL injection Inject [...] times a day as needed for pain Start: 04/22/25. 90 tablet 5Active pregabalin (LYRICA) 75 MG capsule Indications:DDD (degenerative disc disease), lumbar,Lumbar radiculopathyTake 1 (one) capsule (75 mg total) by mouth 2 (two) times a day (Days supply per fill: 30) . 60 capsule /Discontinued(Reorder (Suppress CancelRx Message to Pharmacy)) tiZANidine (Zanaflex) [...] DateDiagnosed DateSick sinus /27/2025DDD (degenerative disc disease), rxhpjp9905/13/2024Lumbar nldfwfenkgmyg71/20/2024Other chronic pain 05/13/2024Myofascial pain arycvtjr61/20/2024ostoperative cltmbkhqo45/03/2024Toe rxjxtvjdxppuh32/01/2024hronic pain of both knees03/22/2024andidiasis of breast 03/22/2024bnormal pigmentation of skin03/22/2024Hypertensive yvurueb1902/11/2024 Chronic pain fgynpiaj88/19/2024iabetic ulcer of left great toe01/12/2024etinal mwbujfyrvl54/18/2024KD (chronic kidney disease)10/13/2023Urinary incontinence 09/10/2023hronic bowtfyxwz11/18/0003Hjnfvjhchtiooexilopl36/18/2024Family history of pulmonary cokrined93/11/2024 Overview (09/03/2023): Mother Family history of udzaiwaz81/11/2024 Overview (09/03/2023): Mother History of ifoawo3405/17/2023Visual loss, left eye05/17/2023Left-sided weakness 05/10/2023Vitamin B12 byoasnpqom54/15/2023Vitamin D kmcwhzrscy31/15/2023 Cigarette nicotine vqdvowhzwv10/15/2023OPD (chronic obstructive pulmonary disease)05/08/2023ERD (gastroesophageal reflux disease)05/06/2023Hypothyroidism 05/06/2023iabetic peripheral fqxxkguycs64/13/4375Cwismsvx46/13/2023eneralized cqilfpcz30/13/2023Muscle spasms of both lower /13/2023owel pvmwtsihwnpm59/13/2023hronic chest pain03/29/2023Type 2 diabetes mellitus with diabetic polyneuropathy, with long-term current use of wahytki1206/03/2020 Assessment & Plan (06/05/2020 5:32 PM EST): [...] 5 day PRN S/P placement of cardiac jkptwruqz19/10/2015 Assessment & Plan (12/01/2014 9:11 AM EDT): - Pacemaker since age 35 - Placed by Dr. 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 - Follow up with [facility] EP as planned. Tfoohqvmvnrk60/09/2015 Assessment & Plan (06/04/2020 12:44 PM EST): [...] Plan (06/04/2020 1:16 PM EST): Continue home keppra, depakote Resolved Problems ProblemNoted DateDiagnosed DateResolved DateEncounter for monitoring opioid maintenance nvipvhn50/Diabetic foot /03/2024 08/05/2024bdominal wound gikyknikjw66/29/202403/Weight gain05/17/2023 02/11/2024iabetic ulcer of right foot associated with type 2 diabetes mellitus hest pain, unspecified typeSeizure KI (acute kidney injury) Assessment & Plan [...] serial chem Strict I/O No need for BATTERY CHECKER yet. Will continue to watch for signs that BATTERY CHECKER is indicated. Will follow along with you [...] labs checked on Thursday and Thursday Severe Assessment & Plan (12/07/2014 8:28 AM EDT): [...] this morning. 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 Encounters DateTypeDepartmentCare UczzAgznwqgvflt03/22/2025[facility] [place] [facility] [place] [address] Mihai Banerjee CNP Lumbar stenosis with neurogenic claudication; DDD (degenerative disc disease), mncujd0604/17/2025[facility] [place] [address] Mihai Banerjee CNP DDD (degenerative disc disease), lumbar; Lumbar radiculopathy; Lumbar stenosis with neurogenic qkzhcabdbach34/28/2025[facility] [place] [address] Mihai Banerjee CNP DDD (degenerative disc disease), lumbar; Lumbar radiculopathy; Lumbar stenosis with neurogenic /15/2025 11:30 AM EDTOffice Visit [facility] [address] [place] [address] Mihai Banerjee CNP Bonasso, Christian Louis, MD Back pain with radiculopathy (Primary Dx); Degeneration of intervertebral disc of lumbar region with discogenic back pain and lower extremity pain; Chronic pain of right knee03/08/2025Ref[facility], Neuroscience [address] [place] [phone] Jem Kumar MD Claustrophobia (Primary Dx)03/08/20259781Vbzjvq19/03/2025Documentation [facility] [place] [address] Jay Peralta MA Power scooter DME02/23/2025 2:00 PM EDTOffice Visit [facility] [place] [address] Mihai Banerjee CNP Lumbar stenosis with neurogenic claudication (Primary Dx); Left hand pain; Fall, initial encounter; Lumbar radiculopathy; Chronic pain syndrome; Myofascial pain syndrome; Degeneration of intervertebral disc of lumbar region with discogenic back pain and lower extremity pain02/23/2025Travelfrom Last 3 Months Immunizations ImmunizationAdministration DatesNext DueINFLUENZA IIV4 6MO OR > FLUARIX/FLUZONE/AFLURIA 440472607/07/2022,04/09/2022,06/05/2020Influenza RIV3 (FLUBLOK) 9 years old or greater - gbfjiua5102/11/2024Influenza Whole05/28/2015 Influenza, Injectable, Quadrivalent, Preservative Free03/06/2021,02/22/2018 Influenza, Seasonal, Ydolwxvyfv23/02/2014Influenza, Begkggzcutq08/04/2016Moderna SARS-CoV-2 Cqsssfzgvug16/11/2021neumococcal Conjugate 20-Valent (Prevnar 20) 05/06/2023,3Pneumococcal Polysaccharide (Pneumovax 23)03/06/2021, 07/06/2014Tdap02/21/2022 Family History Medical HistoryRelationCommentsDiabetesFatherDiabetes type IIFatherHypertension FatherSeizuresMotherRelationStatusCommentsFatherMother Social History Tobacco UseTypesPacks/DayYears UsedDateSmoking Tobacco: BilkjjJtoewwrlyq670.4 Started: 09/30/2014Passive Smoke Exposure: CurrentSmokeless Tobacco: Never Tobacco Cessation:Counseling Given: Not Answered Comments:Vaping 6 mg nicotine Alcohol UseStandard Drinks/WeekCommentsNo0 (1 standard drink = 0.6 oz pure alcohol)OASIS A1250: TransportationAnswerDate RecordedLack of Transportation (Medical)No04/22/2023Lack of Transportation (Non-Medical)04/22/2023atient Unable or Declines to LvepbbbGb09/29/2023HC UtilitiesAnswerDate RecordedIn the past 12 months has the orderbolt, gas, oil, or water [employer] threatened to shut off services in your [...] medical care, and heating?Somewhat hard01/13/2024HQ-2AnswerDate RecordedPHQ-2 Total Yyvpz07505/29/2023Hunger Vital SignAnswerDate RecordedWithin the past 12 months, [...] steady place to sleep [facility] ([facility] now)?Yes05/11/2023Housing Stability Vital Sign AnswerDate RecordedIn the last 12 months, was there a time when you were not able to pay the mortgage or rent on time?No04/27/2024In the past 12 months, how many times have you moved where you were living?t any time in the past 12 months, were you homeless or living in a nursing home (including now)?No 4CommentsNoSex and Gender InformationValueDate RecordedSex Assigned at BirthNot on fileLegal XqkFygcrv26/26/2014 3:26 PM EDTGender Identity Wizpot2706/03/2020 5:59 PM ESTSexual KohrqzwpkqfXvhpjrlg81/10/2021 5:59 PM EST Last Filed Vital Signs Vital SignReadingTime TakenCommentsBlood Bqksfasd128/1918602/23/2025 1:51 PM EDT Fzwje952602/23/2025 1:51 PM BRKLkkycytiavn16.4 ??C (97.6 ??F)09/22/2024 3:10 PM EDTRespiratory Pbgr689409/22/2024 5:08 PM EDTOxygen Iqlqordcgw61%09/23/2024 10:55 AM EDTInhaled Oxygen Concentration--Rtrnfl997 kg (280 lb)02/23/2025 1:51 PM EDT Btpxhb918.5 cm (5' 2 )02/23/2025 1:51 PM EDTBody Mass Index51.211 1:51 PM EDT Plan of Treatment DateTypeDepartmentCare Team (Latest Contact Info)Xbwdwqegdkp07/06/2026 3:00 PM ESTOffice Visit [facility] [place] [address] [place] [address] [facility]UN[facility] [address] [place] [address] Health MaintenanceDue DateLast DoneCommentsCT Doedymbqjdee1977Colonoscopy 1977Colorectal Cancer Screening/Vtnhcgdoen1977Fecal DNA1977 Fecal occult blood test (FOBT,FIT)1977Flexible jyhdlwscsksgx1977 Urine (micro)albumin/creatinine ratio - Ewmdcdqv92/25/1987Hepatitis B Vaccines (1 of 3 - 19+ 3-dose series)1996Pap Smear1998HPV/Ndbotf8004/18/2007 Byvzojpnt79/25/2017Diabetic Foot ExamWellness Visit 504/4Diabetic Eye Exam/OVID-19 Vaccine ( - 2024- season), 12/02/2020Influenza Vaccine (#1)2025 02/11/2024, 05/06/2023, 04/09/2022, Additional history existseGFR ??? Diabetes /05/2024, 09/18/2024, 08/02/2024, Additional history umkuasY1U /03/2025, 12/03/2024, 10/01/2024, Additional history existsZoster Vaccines (1 of 2)2027Tetanus/Diphtheria/Pertussis (2 - Td or Tdap) SV Vaccines (1 - 1-dose 75+ series)2052neumococcal NojcurlVkgoedzzj02/13/2023, 03/29/2023, 03/06/2021, Additional history existsHIV HhdhwyselGxnpdwcxx99/11/2025Hepatitis C WdycjkkulTfteuvrbp23/11/2025ervical Cancer ScreeningDiscontinuedHIB VaccinesAged OutNo longer eligible based on patient's age to complete this topicHPV Vaccines (No Doses Required)Completed Hepatitis A VaccinesAged OutNo longer eligible based on patient's age to complete this topicIPV VaccinesAged OutNo longer eligible based on patient's age to complete this topicMeningococcal ACWY VaccineAged OutNo longer eligible based on patient's age to complete this topicMeningococcal B VaccineAged OutNo longer eligible based on patient's age to complete this topicRotavirus VaccinesAged Out No longer eligible based on patient's age to complete this topic Procedures Procedure NamePriorityDate/TimeAssociated DiagnosisCommentsSCAN OTHER ORDERS 03/08/2025ASIC METABOLIC VSIZBHUMA07/01/2025 3:11 PM EDT HIV 1/2 SCREEN (4TH GENERATION)Gxayclx7708/02/2024 3:40 PM EDT Encounter for health-related screening HEMOGLOBIN S6MHicgwpv39/11/2025 3:40 PM EDT Type 2 diabetes mellitus with diabetic polyneuropathy, with long-term current use of insulin (HCC) HEPATITIS C ANTIBODY WITH REFLEX TO HCV VIRUS UUINKLEJVFAOOWwrerlu83/11/2025 3:40 PM EDT Encounter for health-related screening HM DIABETES FOOT LFWOKfunkqj43/21/2023from Last 3 Months or Most Recently Relevant to Health Maintenance Results * SCAN OTHER ORDERS (03/08/2025)Specimen (Source)Anatomical Location / LateralityCollection Method / VolumeCollection TimeReceived Time03/08/2025 Narrative Authorizing ProviderResult TypeResult StatusChristian Wei Craiglizbethmaritza MDSCANNED ORDERSFinal Result * (ABNORMAL) BMP (09/22/2024 3:11 PM EDT)ComponentValueRef RangeTest Method Analysis TimePerformed AtPathologist EnzkfebmbOkguea251(L)135 - 145 mmol/L 09/22/2024 3:44 PM EDTM LABPotassium4.03.5 - 5.1 mmol/L09/22/2024 3:44 PM EDTMGH VFCQmhswfbn81(L)98 - 108 mmol/L09/22/2024 3:44 PM EDTMGH LABBicarbonate 17(L)21 - 32 mmol/L09/22/2024 3:44 PM EDTMGH LABAnion Nzu4240 - 20 mmol/L 09/22/2024 3:44 PM EDTMGH MSNPtweote852(HH)65 - 99 mg/dL09/22/2024 3:44 PM EDT [facility] GXQCWW19(H)8 - 25 mg/dL09/22/2024 3:44 PM EDTMGH LABCreatinine1.71(H)0.40 - 1.10 mg/dL09/22/2024 3:44 PM EDTMGH BQYjCBW76(L)>=60 mL/min/1.73 m2 09/22/2024 3:44 PM EDTMGH LABComment:Estimated GFR was calculated using the 2020 CKD-EPI creatinine equation.BUN/Creatinine Ratio17.510.0 - 20.005 3:44 PM [facility] LABCalcium8.98.4 - 10.2 mg/dL09/22/2024 3:44 PM EDFORMERLY [facility] Specimen (Source)Anatomical Location / LateralityCollection Method / Volume Collection TimeReceived TimeBloodBLOOD SPECIMEN / UnknownVenipuncture / Kjrmvbl8909/22/2024 3:11 PM EDT09/22/2024 3:19 PM EDT Narrative [facility] - 09/22/2024 3:44 PM EDT [facility] has implemented the eGFR calculation approach that does not have a coefficient for race that conforms to the NKF-ASN Task Force Recommendations. Authorizing ProviderResult TypeResult StatusMattlori TOBAR BLOOD ORDERABLESFinal ResultPerforming OrganizationAddressCity/State/ZIP CodePhone Number [facility] [address] [place] [address] * Hepatitis C Ab with Reflex to HCV Virus Quantitation (08/02/2024 3:40 PM EDT) ComponentValueRef RangeTest MethodAnalysis TimePerformed AtPathologist SignatureHepatitis C Ab (Qiro)CLE-YGUEWYUUJMF-ZBDMBUGCBGCJH DIAGNOSTICS [facility]Comment: HCV antibody was non-reactive. There is no laboratory evidence of HCV infection. In most cases, no further action is required. However, if recent HCV exposure is suspected, a test for HCV RNA (test code 54587) is suggested. For additional information please refer to http://education.Modern Guild.Pieceable/faq/DNO74b7 (This link is being provided for informational/ educational purposes only.) Specimen (Source)Anatomical Location / LateralityCollection Method / Volume Collection TimeReceived TimeBloodBLOOD SPECIMEN / Fgndyvs8608/02/2024 3:40 PM EDT 08/02/2024 3:41 PM EDT Narrative Authorizing ProviderResult TypeResult StatusTona MANUEL BLOOD ORDERABLESFinal ResultPerforming OrganizationAddressCity/State/ZIP CodePhone Number [employer] [facility] [address] [place] [address], * HIV Antibody (HIV1/HIV2) (08/02/2024 3:40 PM EDT)ComponentValueRef RangeTest MethodAnalysis TimePerformed AtPathologist SignatureHiv Ag/Ab 4Th Gen (Quest) AKB-OJDDJSFUKTG-OMLAUZJSYPQNR [employer] [facility]Comment: HIV-1 antigen and HIV-1/HIV-2 antibodies were not [...] ?? For additional information please refer to http://education.Smarter Remarketer/faq/DDC456 (This link is being provided for informational/ educational purposes only.) The performance of this assay has not been clinically validated in patients less than 2 years old. Specimen (Source)Anatomical Location / LateralityCollection Method / Volume Collection TimeReceived TimeBloodBLOOD SPECIMEN / Porrtwb8108/02/2024 3:40 PM EDT 08/02/2024 3:41 PM EDT Narrative Authorizing ProviderResult TypeResult StatusLaura Leann Nielsen [facility] BLOOD ORDERABLESFinal ResultPerforming OrganizationAddressCity/State/ZIP CodePhone Number [employer] [facility] [address] [place] [address], * (ABNORMAL) Hemoglobin A1c (08/02/2024 3:40 PM EDT)ComponentValueRef RangeTest MethodAnalysis TimePerformed AtPathologist SignatureHemoglobin A1C10.6(H)<5.7 % of total HgbXtera Communications [facility]Comment: For someone without known diabetes, a hemoglobin [...] / Volume Collection TimeReceived TimeBloodBLOOD SPECIMEN / Mnppdan4508/02/2024 3:40 PM EDT 08/02/2024 3:41 PM EDT Narrative Authorizing ProviderResult TypeResult StatusLaura Leann MANUEL BLOOD ORDERABLESFinal ResultPerforming OrganizationAddressCity/State/ZIP CodePhone Number [facility] [address] [place] [address], * DIABETES FOOT EXAM (04/14/2023)Specimen (Source)Anatomical Location / LateralityCollection Method / VolumeCollection TimeReceived Time04/14/2023 Narrative Authorizing ProviderResult TypeResult StatusHistorical Provider MDHEALTH MAINTENANCEFinal Result from Last 3 Months or Most Recently Relevant to Health Maintenance Insurance Advance Directives For more information, please contact: [phone] TypeDate RecordedPatient RepresentativeExplanationAdvance Directives and Living Will6/ 8:44 PM * Full Code (Latest Code Status on File) Date ActivatedDate LlvornconupCharhdaq96/4/2024 1:09 AM04/29/2024 5:58 PM * Full Code Date ActivatedDate BxbhcfncalpFjepzrck58/3/2024 11:46 PM04/27/2024 1:09 AM * Full Code Date ActivatedDate BlpixwlyssnBwayhoqv11/1/2024 12:34 AM04/04/2024 7:43 PM * Full Code Date ActivatedDate InactivatedComments01/12/2024 5:17 PM01/18/2024 4:48 PM * Full Code Date ActivatedDate DynnhfkmnspDzipbesm67/17/2023 4:09 PM05/13/2023 6:15 PM Care Teams Team MemberRelationshipSpecialtyStart DateEnd Date System, Provider Not In PCP - Ftcenlx72/2/25
--- OUTSIDE RECORDS SUMMARY | 2025-05-15 21:04 | XMS_ITS | Encounter Summary ---
Author Organization [facility] Address formerly [facility] [place] [address] Care Team Providers Care Optician Manager Name Role Phone System, Provider Not In Primary Care Provider Un available Reason for Visit * ReasonOnset DateCommentsMedication Yaccqs1605/15/2025 Encounter Details DateTypeDepartmentCare Team (Latest Contact Info)Cmqicgrrllu04/22/2025Refill [facility] Pain Management [place] [address] [place] [address] Mihai Banerjee, [facility] [address] [place] [address] Lumbar stenosis with neurogenic claudication; DDD (degenerative disc disease), lumbar Social History Tobacco UseTypesPacks/DayYears UsedDateSmoking Tobacco: WuyynjJjbahmqouq153.4 Started: 09/30/2014Passive Smoke Exposure: CurrentSmokeless Tobacco: Never Comments:Vaping 6 mg nicotin e Alcohol UseStandard Drinks/WeekCommentsNo0 (1 standard drink = 0.6 oz pure alcohol)OASIS A1250: TransportationAnswerDate RecordedLack of Transportation (Medical)No04/22/2023Lack of Transportation (Non-Medical)No3Patient Unable or Declines to PaaoioeMj98/29/2023AHC UtilitiesAnswerDate RecordedIn the past 12 months has [...] medical care, and heating?Somewhat hard01/13/2024HQ-2AnswerDate RecordedPHQ-2 Total Spqre07505/29/2023Hunger Vital SignAnswerDate RecordedWithin the past 12 months, [...] were you homeless or living in a care home (including now)?No 04/27/2024CommentsNoSex and Gender InformationValueDate RecordedSex Assigned at BirthNot on fileLegal XhoCigzkm43/26/2014 3:26 PM EDTGender Identity Pajubc6206/03/2020 5:59 PM ESTSexual NnwnxbuxibtVuhpytab68/10/2021 5:59 PM EST documented as of this encounter Miscellaneous Notes * Telephone Encounter - Pippa Darling - 05/15/2025 4:00 PM EST Adelina [birth year] 25 Uds 03/07 documented in this encounter Plan of Treatment DateTypeDepartmentCare Team (Latest Contact Info)Fcaqwhleuuj71/06/2026 3:00 PM ESTOffice Visit [facility] Pain Management [place] [address] [place] [address] Mogran Velez, DO [address] [place] [address] documented as of this encounter Visit Diagnoses Diagnosis Lumbar stenosis with neurogenic claudication DDD (degenerative disc disease), lumbar Degeneration of lumbar or lumbosacral intervertebral disc documented in this encounter Additional Health Concerns AssessmentNoted TimePHQ-2 Depression Total Score: 7:45 AM EST documented as of this encounter Care Teams Team MemberRelationshipSpecialtyStart DateEnd Date System, Provider Not In PCP - Uzzegmm42/2/25documented as of this encounter
--- OUTSIDE RECORDS SUMMARY | 2025-05-15 21:04 | XMS_ITS | Patient Health Record ---
Author Organization [employer] [facility] [employer] es Address [address] [place] [address] Care Team Providers Care Shank Threader Name Role Phone Maye Jordan Primary Care [...] Orally Twice a day; Duration: 30 day(s)ActiveNystatin 752571 UNIT/GM Ointment1 application Externally Twice a day; [...] follow up with wound care for next zbqjji6412/23/2022 ActiveKeppra 750 MG Tablet1 tablet Orally every [...] a drink containing alcohol in the past year?EqNhhduv2CmwbrcmkwsbdflOepybmgw Behaviors affecting healthPoor/Risky Behaviors:Denies-Communication Barrier: Language Barrier?:NoSection Notes: Vapes Vapes Vapes Vapes Vapes Vapes Vapes Vapes Vapes Vapes Vapes Vapes Problems Problem Type SNOMED Code ICD Code Onset Dates Problem Status W/U Status Risk Notes Problem Diabetic foot ulcer (378244970) Diabetes mellitus due to underlying condition with foot ulcer (E08.621) ActiveconfirmedProblemType II diabetes mellitus with arthropathy (717370688)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)Activeconfirmed ProblemChronic ulcer of foot (130352662)Non-pressure chronic ulcer of left heel and midfoot with fat layer exposed (L97.422)ActiveconfirmedProblemSciatica (17661740)Lumbago with sciatica, right side (M54.41)ActiveconfirmedProblem Sciatica (17247254)Lumbago with sciatica, left side (M54.42)Activeconfirmed ProblemLong-term current use of insulin (857979750)continuous churn buttermaker (current) use of insulin (Z79.4)ActiveconfirmedProblemBipolar 1 disorder (356006998)Bipolar 1 disorder (F31.9)ActiveconfirmedProblemChronic pain (03316608)Other chronic pain (G89.29)ActiveconfirmedProblemPrimary hypertension (52085733)Primary hypertension (I10)ActiveconfirmedProblemDiabetic renal disease (657996376) Diabetic nephropathy associated with type 2 diabetes mellitus (E11.21)Active confirmedProblemHypothyroidism (61543446)Hypothyroidism, unspecified type (E03.9)ActiveconfirmedProblemMigraine with aura (0886427)Migraine with aura and without status migrainosus, not intractable (G43.109)ActiveconfirmedProblemMRSA (Methicillin resistant Staphylococcus aureus) infection (609032355)MRSA (methicillin resistant Staphylococcus aureus) infection (A49.02)Activeconfirmed ProblemIncontinence without sensory awareness (298107260)Urinary incontinence without sensory awareness (N39.42)ActiveconfirmedProblemLoss of vision of left eye (763332266)Vision loss, left eye (H54.62)Activeconfirmed Plan Of Treatment No Information Insurance Providers Payer Name Payer Address Payer Phone Subscriber Number Group Number Insured Name Patient Relationship to Insured Coverage Start Date Coverage End Date [employer] [place] Medicaid [address] [place] [address] [id number] ORGAN, CATHYSelf - patient is the [id number] 2022Wrap ABD CareSourcePO [address] [place] [id number], CATHYSelf - patient is the [id number] [employer] [place] MedicaidPO [address] [place] [id number], CATHYSelf - patient is the [id number] 2022 Wrap ABD CareSourcePO [address] [place] [address] [id number], CATHYSelf - patient is the insured 2022 Medical (General) History Medical History History ICD Code GRAN MAL SEIZURES DIABETES 2NEUROPATHYHTNHEADACHESSurgical History Surgery Date(Month/Year) TOTAL HYSTERECTOMY 2006 GALL BLADDER LAPRASCOeye rpheoel2393Tbxekezmvrtjpgu History Reason Date(Month/Year) toe infection 08/2022
--- OUTSIDE RECORDS SUMMARY | 2025-05-15 21:04 | XMS_ITS | Clinical Summary ---
Author Organization [facility] Address [address] [place] [address] Care Team Providers Care Data Operations Leader Name Role Phone Mk Conti MD Unavailable [phone] Tona Nielsen Primary Care Provider [phone] Allergies Active AllergyReactionsCriticalityNoted FdrlRfenwiwuXzpflqtqdkcokCmjym53/10/2025 Adhesive Tape-JqxcqjsnjVttoetf32/21/2018CodeineOther,Hives,Rash,GI intolerance High02/16/2008 Get very angry Other reaction(s): Aggressive Behavior hives FentanylGI intolerance,Hallucinations,Nausea And Vomiting,CwirpYate68/01/2019 Other Reaction(s): Renal Failure LinezolidGI intolerance,Nausea And Vomiting,IaelnIplu72/28/2023 Other Reaction(s): Renal Failure LorazepamHallucinations,FeurdHjga55/17/2022 Other Reaction(s): Other (See Comments), Renal Failure MorphineGI intolerance,Other,ZkjdKhgs55/24/2008 Other Reaction(s): Aggressive Behavior hives Get very angry Other reaction(s): Aggressive Behavior Nsaids (Non-Steroidal Anti-Inflammatory Drug)Pnvizcv5303/30/2017 shuts my kidney's down LowuswthzttlpjduUhxio22/11/2024 Other Reaction(s): Other (See Comments) She reports Compazine made her feel anxious and grumpy She reports Compazine made her feel anxious and grumpy PropoxypheneGI intolerance,Nausea And DpcekguuYfp26/01/2016Propoxyphene N-AcetaminophenGI intolerance,ElryyBiqbne83/24/2008TramadolGI intolerance,Other, Hives,Rash,BpcpitiLzoi81/23/2012 Other Reaction(s): Other (See Comments) seizures seizures VancomycinOther,DcqwzCyfi52/30/2017 Other Reaction(s): Contraindication-Medical Surgical, KIDNEY & URINARY [...] 30 tablet 5Active Active Problems ProblemNoted DateDiagnosed DuehGkkzzptpaeee56/12/2025 Assessment & Plan (10/04/2024 12:14 PM EDT): - Ca 8.2 today - daily CBC Consult 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 Will DC ene Assessment & Plan (10/03/2024 3:02 PM EDT): Ca 6.6 - albumin 2.5, corrected calcium 7.4 - will give one gram of calcium Type 2 diabetes mellitus with circulatory disorder, with long-term current use of nuhsejp2510/02/2024 Assessment & Plan (10/04/2024 12:14 PM EDT): [...] units bid - currently ISS Sick sinus sxrxaugs37/11/2025 Assessment & Plan (10/04/2024 12:14 PM EDT): - s/p pacemaker - interrogation ordered- asked RN to call rep Assessment & Plan (10/03/2024 10:35 AM EDT): - s/p pacemaker - interrogation ordered Assessment & Plan (10/02/2024 11:21 AM EDT): - s/p pacemaker - interrogation ordered Acute renal failure with acute tubular necrosis superimposed on stage 3a chronic kidney hmcklms6910/02/2024 Assessment & Plan (10/04/2024 12:14 PM EDT): -Cr improved today to 1.75 - renal US negative - neph consulted Assessment & Plan (10/03/2024 3:02 PM EDT): -Cr improved today to 1.89 - renal US negative - neph consulted Assessment & Plan (10/02/2024 11:21 AM EDT): - Cr 3.0 today - neph consulted Dxvceas5610/02/2024 Assessment & Plan (10/04/2024 12:14 PM EDT): - neuro consulted at admission - Continue LEV 1g BID at least until outpt neuro follow up - Patient will need referral to [facility] neurology (for epileptologist) at discharge. - Recommend PT/OT. - Neuro will sign off. Assessment & Plan (10/03/2024 10:35 AM EDT): - neuro consulted at admission - Continue LEV 1g BID at least until outpt neuro follow up - Patient will need referral to [facility] neurology (for epileptologist) at discharge. - Recommend PT/OT. - Neuro will sign off. Assessment & Plan (10/02/2024 11:11 AM EDT): - neuro consulted at admission - Continue LEV 1g BID at least until outpt neuro follow up - Patient will need referral to [facility] neurology (for epileptologist) at discharge. - Recommend PT/OT. - Neuro will sign off. Bipolar 1 rtgtitpn98/11/2025 Assessment & Plan (10/04/2024 12:14 PM EDT): [...] nightly - continue seroquel 400mg nightly Acquired tiqfkkmxjibcty01/11/2025 Assessment & Plan (10/04/2024 12:14 PM EDT): [...] follow up outpatient follow up with her conservation specialist for routine callus paring. No need [...] follow up outpatient follow up with her conservation specialist for routine callus paring. No need [...] injury, and seizure episode and elevated lactate. VipVentatronic device interrogation No current indication for heparin [...] (1 standard drink = 0.6 oz pure alcohol)[facility] UtilitiesAnswerDate RecordedIn the past 12 months has the [employer], gas, oil, or water [employer] threatened to shut off services in your [...] were you homeless or living in a halfway (including now)? No10/01/2024Hunger Vital SignAnswerDate RecordedWithin the past 12 months, you worried that your food would run out before you got the money to buymore.Never true10/01/2024Ran Out of Food in the Last YearNot on file10/01/2024 CommentsUnknownSex and Gender InformationValueDate RecordedSex Assigned at Not on fileLegal SevPtpgha96/29/2022 9:59 PM EDTGender IdentityNot on fileSexual OrientationNot on file Last Filed Vital Signs Vital SignReadingTime TakenCommentsBlood Uohwfowq491/68010/05/2024 12:00 PM EDT Xnmuh3605/14/2025 12:00 PM MRAEpmhskdcggk74.2 ??C (97.2 ??F)10/05/2024 12:00 PM EDTRespiratory Vhem840710/05/2024 12:00 PM EDTOxygen Fxvkpwaqib19%10/05/2024 12:00 PM EDTInhaled Oxygen Concentration--Esdtsh181 kg (309 lb)10/05/2024 5:00 AM EDT Dabllw341.5 cm (5' 2.01 )10/01/2024 9:31 AM EDTBody Mass Index56. 9:31 AM EDT Plan of Treatment Health MaintenanceDue DateLast DoneCommentsCT Bxpnxpuzelfk1977Colonoscopy 1977Colorectal Cancer Vmyrwwjqu1977FIT-DNA1977FIT1977 FOBT1977 4584Mqslcxgimzwfj1977Diabetes: Retinopathy Grejfycdd43/25/1987 Depression Wxsngyxek66/25/1989Hepatitis B Vaccines (1 of 3 - 19+ 3-dose series) 1996Pap Smear1998Cervical Cancer Pasegedbk86/25/2007HPV/Cotest 04/18/20075687Pptcunvau42/25/2017Diabetes: Hemoglobin A1C/02/2025, 08/02/2024, 01/12/2024, Additional history existsCOVID-19 Vaccine ( season)/, 02/16/2021, 12/02/2020Influenza Vaccine (#1) /, 05/06/2023, 04/09/2022, Additional history existsZoster Vaccines (1 of 2)2027dult Xtblqll35neumococcal Vaccine: Pediatrics (0 to 5 Years) and [...] complete this topic Procedures Procedure NamePriorityDate/TimeAssociated DiagnosisCommentsHEMOGLOBIN T3WJbl-Vh 10/01/2024 11:02 AM EDT from Last 3 Months or Most Recently Relevant to Health Maintenance Results * (ABNORMAL) Hemoglobin A1c (10/01/2024 11:02 AM EDT)ComponentValueRef RangeTest MethodAnalysis TimePerformed AtPathologist SignatureHemoglobin A1C10.7(H)4.0 - 6.0 %10/02/2024 9:31 AM [facility] ([facility])Estimated Average Glucose 260mg/dL10/02/2024 9:31 AM [facility] ([facility])Specimen (Source) Anatomical Location / LateralityCollection Method / VolumeCollection Time Received TimeBloodVenous blood specimen / UnknownExisting Catheter / Unknown 10/01/2024 11:02 AM EDT10/01/2024 11:14 AM EDT Narrative Authorizing ProviderResult TypeResult StatusPatria TOBAR BLOOD ORDERABLES Final ResultPerforming OrganizationAddressCity/State/ZIP CodePhone Number [facility] ([facility]) [address] [place], [place] [id number] from Last 3 Months or Most Recently Relevant to Health Maintenance Insurance Advance Directives * Full Code (Latest Code Status on File) Date ActivatedDate InactivatedComments10/01/2024 9:44 AM10/05/2024 7:01 PM Care Teams Team MemberRelationshipSpecialtyStart DateEnd Date Tona Nielsen PA [address] [facility] [address] [address] PCP - General10/05/24 Mk Conti MD [address] [place] [address] Orthopaedic Surgery10/05/24
--- OUTSIDE RECORDS SUMMARY | 2025-05-15 21:04 | XMS_ITS | Clinical Summary ---
Author Organization [facility] Address [address] [place] [address] Care Team Providers Care Grader Marker Name Role Phone George Rob DO Primary Care Provider Obdulia Soto Ethan Unavailable Allergies Active AllergyReactionsCriticalityNoted DateCommentsAdhesive Tape (Rosins) Fxgxelg3507/17/20171606TavitevLtwu90/23/2018Propoxyphene N-AcetaminophenGI Upset 07/17/2017DyeContraindication-Medical Dfezxxkm41/23/6256IouvnUlsq56/23/2018 Ketorolac ErxvolyjwfinTfud79/23/1837XpkqacbxDhtu38/23/2018Vancomycin Contraindication-Medical Uxbpstcx69/23/2018 Medications MedicationSigDispense QuantityRefillsLast FilledStart DateEnd DateStatus aspirin 81 mg chewable tablet Take 81 mg by mouth.01/21/2017Active atorvastatin (LIPITOR) 20 mg tablet Take 20 mg by mouth once daily. 01/21/2017Active levETIRAcetam (KEPPRA) 1,000 mg tablet Take 1,000 mg by mouth.03/02/2015ctive lithium carbonate (ESKALITH) 300 mg capsule 300mg in AM and 600mg QHS01/21/2017Active LYRICA 100 mg capsule Take by mouth once daily. Active metFORMIN (GLUCOPHAGE) 1,000 mg tablet Take 1,000 mg by mouth.01/21/2017Active omeprazole (PRILOSEC) 20 mg capsule Take 40 mg by mouth.Active QUEtiapine XR (SEROQUEL XR) 50 mg Tb24 Take 50 mg by mouth.Active insulin lispro (HUMALOG) 100 unit/mL injection - dose 12 units per meal, can do 6 units if having a smaller meal - also dose before meals and at bedtime for BG >150: 151-200 = 2 units 201-250 = 4 units 251-300 = 6 units 301-350 = 8 units 351-400 = 10 units04/01/2017Active insulin lispro (HUMALOG) 100 unit/mL injection by SUBDERMAL route.Active insulin glargine (LANTUS) 100 unit/mL injection by SUBDERMAL route.Active insulin glargine (LANTUS SOLOSTAR, BASAGLAR) 100 unit/mL (3 mL) inpn 48 Units by SUBDERMAL route.04/01/2017Active metoprolol tartrate, short acting, (LOPRESSOR) 25 mg tablet Take 25 mg by mouth.Active lisinopril (ZESTRIL, PRINIVIL) 5 mg tablet Take 5 mg by mouth.Active nortriptyline (PAMELOR) 25 mg capsule Take 25 mg by mouth daily at bedtime.Active rOPINIRole (REQUIP) 2 mg tablet Take 2 mg by mouth daily at bedtime.Active zonisamide (ZONEGRAN) 100 mg capsule Take by mouth once daily.Active Active Problems ProblemNoted DateDiagnosed DateSinus smfzcluqfkz68/23/2018S/P cardiac pacemaker usnbegbmi47/23/2018Controlled type 2 diabetes mellitus without complication, with long-term current use of hdshobj4507/17/2017Essential /23/2018 Iltnmgupkdaepg41/23/2018 Family History Medical HistoryRelationCommentsDiabetesFatherHeartFatherCABG t0Jfgrmdonkbxc FatherStrokeFatherCancerMotherThyroidSeizuresMotherRelationStatusCommentsFather Mother Social History Tobacco UseTypesPacks/DayYears UsedDateSmoking Tobacco: GvmhkwTbjbqkiagr972 04/16/1993 - 04/16/2017Smokeless Tobacco: NeverAlcohol UseStandard Drinks/Week CommentsNo0 (1 standard drink = 0.6 oz pure alcohol)Area Deprivation IndexAnswer Date RecordedNational Score (1-100), lower number is lower riskNot on file 04/29/2020State Score (1-10), lower number is lower riskNot on file04/29/2020 Data from: https://www.neighborhoodatlas.medicine.[facility].edu/. Last address used for calculationNot on file04/29/2020CommentsUnknownSex and Gender InformationValueDate RecordedSex Assigned at BirthNot on fileLegal SexFemale 12/13/2014 1:58 PM EDTGender IdentityNot on fileSexual OrientationNot on file Last Filed Vital Signs Vital SignReadingTime TakenCommentsBlood Pzyccnwg135/8807/17/2017 9:20 AM EST Jcres8341 9:20 AM ESTTemperature--Respiratory Yscd988607/17/2017 9:20 AM ESTOxygen Idpwsfqpok27%07/17/2017 9:20 AM ESTInhaled Oxygen Concentration-- Enfvte74.9 kg (196 lb)07/17/2017 9:20 AM USOQgrpie883.5 cm (5' 2 )07/17/2017 9:20 AM ESTBody Mass Index35.85007/17/2017 9:20 AM EST Plan of Treatment Health MaintenanceDue DateLast DoneCommentsAnxiety Hbggknkfz63/25/1995Depression Shhbuxfyj34/25/1995HIV Wslsuazqb48/25/1995Hepatitis C Qvaafnomr05/25/1995 DTaP,Tdap,Td Vaccine (1 - Tdap)1996Hepatitis B Vaccine (1 of 3 - 19+ 3- dose series)1996Cervical Cancer Ztmlnqnwp86/25/1998Mammogram Screening 2017CT Wzjdtzbnkqgr83/25/2022Cologuard (FIT-DNA)2Colonoscopy 2022olorectal Cancer Hwbihpmwf58/25/2022Diabetes Cijgjrqys92/25/2022Fecal Occult Blood2022Lipid Fipycusvh93/25/0570Kjzsqlkggmvsb10/25/2022Covid-19 Vaccine (1 - 2024- season)2025Influenza Vaccine (#1)2025 Insurance Care Teams Team MemberRelationshipSpecialtyStart DateEnd Date George Rob DO PCP - GeneralFamily Medicine12/13/14 Soto Steiner [address] [place] [id number] PhysicianPodiatry2
--- OUTSIDE RECORDS SUMMARY | 2025-05-15 21:04 | XMS_ITS | Clinical Summary ---
Author Organization [facility] Address [address] [facility] [place] [address] Care Team Providers Care Tip Cutter Name Role Phone Unavailable Primary Care Provider Unavailabl e Source Comments The following information is NOT included in Care Everywhere downloads:Psychiatric notes, ECG results, Cardiac Rehab notes, Pulmonary Function notes, data from SmartForms (includes but not limited toPregnancy data,audiograms, eye exams, pre-surgical evaluation notes, well-child exam data).[facility] Immunizations ImmunizationAdministration DatesNext DueInfluenza, injectable, quadrivalent, preservative (SQQ=735)02/22/2018Influenza, injectable, quadrivalent, preservative free (KDJ=988)03/06/2021,06/05/2020Influenza, injectable, trivalent, preservative (WYR=991)04/09/2022,05/25/2020,03/26/2014Influenza, unspecified formulation (CVX=88)05/28/2015Pneumococcal polysaccharide 23 Valent (PPSV23) (CVX=33)03/06/2021Tdap (IEG=437)02/21/2022 Social History Tobacco UseTypesPacks/DayYears UsedDateSmoking Tobacco: Never Assessed CommentsNoSex and Gender InformationValueDate RecordedSex Assigned at BirthNot on fileLegal XexRsqick50/31/2019 4:24 PM EDTGender IdentityNot on fileSexual OrientationNot on file Last Filed Vital Signs Vital SignReadingTime TakenCommentsBlood Xnkllczh68/51010/07/2022 6:43 AM EDT Rzhiz9853/16/2023 6:43 AM EBXRudavaxhyxx17.4 ??C (97.6 ??F)10/06/2022 7:48 PM EDTRespiratory Cwwh676310/06/2022 7:48 PM EDTOxygen Bsngmulgxa03%10/07/2022 6:43 AM EDTInhaled Oxygen Concentration--Weight--Height--Body Mass Index-- Plan of Treatment Health MaintenanceDue DateLast ZjheSntlkwwiWdfvxoenlzc1977HIV Test 1992Hepatitis C Qfjfdeys47/25/1995Hepatitis A (HAV) Vaccine (optional start 19+ years)1996Hepatitis B (HBV) Vaccine (1 of 3 - 19+ 3-dose series) 1996Pap Smear04/18/19981577Vtrdtvvlzbl35/25/2017CRC Mexrvodib20/25/2022 Cologuard (Stool DNA)2022FIT2022OVID-19 Vaccine (2 - 2024- season)Influenza Vaccine (#1), 03/06/2021, 06/05/2020, Additional history fctiotGexttctplih30/13/2027 03/06/2022, 05/25/2015, 09/29/2013Shingles (RZV) Vaccine (1 of 2)2027 Tetanus (Td or Tdap) Bxcevvp72neumococcal Vaccine(s)Aged Out 03/06/2021No longer eligible based on patient's age to complete this topicTdap FwairpbTxnfyojdb79/30/2022 Insurance
--- OUTSIDE RECORDS SUMMARY | 2025-05-15 21:04 | XMS_ITS | Clinical Summary ---
Author Organization [facility] tem Address [id number] [place] [address] Care Team Providers Care Car Repairman Name Role Phone Unavailable Primary Care Provider Unavailabl e Allergies Active AllergyReactionsCriticalityNoted DateCommentsAdhesive Tape-Silicones 08/17/20171570JomhzcjMsg26/26/2018Propoxyphene N-AcetaminophenVomitingMedium 08/17/2017Dye08/17/20178025Okmvcvsxk36/26/4925Nkoxq86/26/2018KetorolacHivesLow 08/17/20172532CfykyfekYtpvkIbsfah85/26/8203Xgpqekufoo84/26/2018 Medications MedicationSigDispense QuantityRefillsLast FilledStart DateEnd DateStatus levothyroxine (SYNTHROID, LEVOTHROID) 75 MCG tablet Take 75 mcg by mouth daily.Active pregabalin (LYRICA) 100 mg capsule Take 1 capsule (100 mg total) by mouth nightly.Active aspirin 81 mg Take 81 mg by mouth daily.Active lithium carbonate 300 mg tablet Take 300 mg by mouth every morning before breakfast.Active lithium 600 MG capsule Take 600 mg by mouth nightly.Active metFORMIN (GLUMETZA) 1000 MG (MOD) 24 hr tablet Take 1,000 mg by mouth 2 (two) times a day with meals.Active QUEtiapine (SEROquel) 200 mg tablet Take 4 tablets (800 mg total) by mouth nightly.Active tiZANidine (ZANAFLEX) 4 mg tablet Take 1 tablet (4 mg total) by mouth in the morning and 1 tablet (4 mg total) at noon and 1 tablet (4 mg total) before bedtime.Active levETIRAcetam (KEPPRA) 750 mg tablet Take 1 tablet (750 mg total) by mouth in the morning and 1 tablet (750 mg total) before bedtime.Active atorvastatin (LIPITOR) 80 mg tablet Take 1 tablet (80 mg total) by mouth in the morning. 30 tablet ctive oxyCODONE-acetaminophen (PERCOCET) 5-325 mg per tablet Indications:painTake 1 tablet by mouth every 8 (eight) hours as needed for pain Indications: pain. Max Daily Amount: 3 tabletsActive insulin glargine (LANTUS) 100 unit/mL injection Inject 0.3 mL (30 Units total) under the skin in the morning and 0.3 mL (30 Units total) before bedtime. 10 mL 1205Active insulin lispro (HumaLOG) 100 unit/mL insulin pen Inject 2-10 Units under the skin 4 (four) times a day with meals and nightly. 15 mL 1205Active pen needle, diabetic (BD ULTRA-FINE JOHAN PEN NEEDLE) 32 gauge x 5/32 needle Use with insulin injections 100 each 1105Active Active Problems ProblemNoted DateDiagnosed DateSudden loss of eitbjt1912/03/2024Hyperosmolar hyperglycemic state (HHS)12/03/2024KI (acute kidney injury)12/03/2024HHS (hypothenar hammer syndrome)12/03/2024Right leg lucdbsbu28/12/2022 Immunizations ImmunizationAdministration DatesNext DueCOVID-19, mRNA, LNP-S, PF, 100mcg/0.5mL Dose12/02/2020Influenza Tri-valent Im, Adult02/11/2024Influenza Whole05/28/2015 Influenza, Im Trivalent Bmgnqzuhaepp26/02/2014Influenza, Injectable, Gskgrtywdloy74/01/2018Influenza, Injectable, quadrivalent (PF)05/06/2023, 04/09/2022,03/06/2021,06/05/2020,1Pneumococcal Conjugate 20-valent 05/06/2023,3Pneumococcal Wqlukazkahgkiz90/13/2061Rfvu24/30/2022 Family History Medical HistoryRelationNameCommentsLung diseaseMotherRelationNameStatusComments MotherDeceased Social History Tobacco UseTypesPacks/DayYears UsedDateSmoking Tobacco: Every DayCigarettes Smokeless Tobacco: Never Tobacco Cessation:Ready to Q uit: Not Asked; Counseling Given: Not Answered Comments:Vapes nicotine Alcohol UseStandard Drinks/WeekCommentsNot Currently0 (1 standard drink = 0.6 oz pure alcohol)[facility] UtilitiesAnswerDate RecordedIn the past 12 months has the [employer], [employer], oil, or water [employer] threatened to shut off services in your home?No12/03/2024UDIT-CAnswerDate RecordedQ1: How often do you have a drink containing alcohol?Monthly or less12/03/2024Q2: How many drinks containing alcohol do you have on a typical day when you are drinking?1 or Q3: How often do you have six or more drinks on one occasion?Never12/03/2024PHQ-2 AnswerDate RecordedTotal Jwion657PRAPARE - TransportationAnswerDate RecordedIn the past 12 months, has lack of transportation kept you from medical appointments or from getting medications?No12/03/2024In the past 12 months, has lack of transportation kept you from meetings, work, or from getting things needed for daily living?No12/03/2024Housing InstabilityAnswerDate RecordedAre you worried or concerned that in the next two months you may not have stable housing that you own, rent or stay in as a part of a household?No12/03/2024 ChildcareAnswerDate HfvpzosyYpxktrffpWkuklnb74/10/2019EmploymentAnswerDate HvcsbhevLzpysycwjtNrwxnme63/10/2019Hunger ScreeningAnswerDate RecordedWithin the past 12 months we worried whether our food would run out before we got money to buy more.Never True12/04/2024Within the past 12 months the food we bought just didn't last and we didn't have money to get more.Never True12/04/2024Purpose - LifeAnswerDate RecordedPurpose and direction in fzxwDlxobha95/10/2021 CommentsNoSex and Gender InformationValueDate RecordedSex Assigned at BirthNot on fileLegal HtiTgqgoq92/04/2015 12:36 PM EDTGender IdentityNot on fileSexual OrientationNot on file Last Filed Vital Signs Vital SignReadingTime TakenCommentsBlood Taxbpsyb628/8612/05/2024 12:15 PM EDT Jxfpg460512/05/2024 12:15 PM XRLMevwerpzbgm32.1 ??C (98.7 ??F)12/05/2024 12:15 PM EDTRespiratory Bzqb790012/05/2024 12:15 PM EDTOxygen Eolyhxpslt61%12/05/2024 8:12 AM EDTInhaled Oxygen Concentration--Hwqfsl741.4 kg (245 lb 9.5 oz)12/03/2024 12:15 AM ZFEOiruda267.5 cm (5' 2.01 )12/03/2024 12:15 AM EDTBody Mass Index44.91 12/03/2024 12:15 AM EDT Plan of Treatment Health MaintenanceDue DateLast DoneCommentsDiabetic Ophthalmology Exam1977 Tobacco Fpgeiafila1977Adult BMI Follow Up Plan1995Diabetic Foot Exam 1995COVID-19 Vaccine ( season)/, 12/02/2020 Influenza Gdkqjdx15/, 05/06/2023, 04/09/2022, Additional history existsStatin Use: Khxcimat15/dult BMI Screening /04/2025Depression Vgujtzcgb26/04/2025Tobacco Screening /04/2025DTaP,Tdap and Td Vaccines (2 - Td or Tdap)02/22/2032 02/21/2022 Goals GoalPatient Goal TypeAssociated ProblemsRecent ProgressPatient-Stated?Author Return Home Mary López, RN Note: Evaluation of progress towards goal: [facility] and daughter, friend support <enter goal here> Ezra Root, JAEL Note: Evaluation of progress towards goal: home with [facility] Medical Devices ImplantedTypeAreaManufacturerDevice IdentifierShelf Expiration DateModel / Serial / LotCapsurefix Abdulkadir Mri Surescan 5076-03/30/2017 Implanted:03/30/2017 (Quantity not on file)MEDTRONIC CARD RHYTHM [id number] / / (Not Safe)Evera Mri Xt Us_Version Implanted:04/06/2019 (Quantity not on file)MEDTRONIC CARD RHYTHM [id number] / / Description:NOT SAFE DUE TO ABANDONED CAPPED LEAD PER VAN MEDTRONIC.Sprint Quattro Secure S 6935m-04/06/2019 Implanted:04/06/2019 (Quantity not on file)MEDTRONIC CARD RHYTHM [id number] / / Insurance Advance Directives * Full Code (Latest Code Status on File) Date ActivatedDate InactivatedComments12/03/2024 7:40 AM12/05/2024 7:18 PM * Full Code Date ActivatedDate EbtychlaqmkPenqkvsm13/13/2022 2:06 AM03/11/2022 9:21 PM
--- OUTSIDE RECORDS SUMMARY | 2025-05-15 21:04 | XMS_ITS | Clinical Summary ---
Author Organization [facility] Address [address] [place] [address] Care Team Providers Care Rotogravure Press Operator Name Role Phone Cherelle Fierro MD Unavailable [phone] Geo Leach MD Primary Care Provider [phone] George Rob DO Unavailable Unavailable Allergies Active AllergyReactionsCriticalityNoted DateComments*Adhesive Tape07/15/2017 Codeine And RelatedAggressive QhdzvdalWaxflu24/24/2008Propoxyphene N-ApapNausea and GgpcdrnbGmqwac24/24/2008Dye Care Home Red 3 (Erythrosine)01/21/2017 IV DYE shuts down my kidneys FentanylRenal JjcytuoZnwv85/17/2024IbuprofenRenal BbnvwcfZnxq33/17/2024Iodides High02/16/2017 Other reaction(s): Other (See Comments) Renal compromise Latex05/01/2015 Other reaction(s): Dermatitis LinezolidRenal GzplazmJawp34/17/2024LorazepamRenal UteogaeRrgv24/17/2024Nsaids 03/30/2017 shuts my kidney's down Ketorolac Ayvkjmhgbyiy94/30/2017 Unsure of reaction RpudtpwlHztrdexeLxds46/23/3713Ttnnvgyyfz82/30/2017 Shut down her kidneys Medications MedicationSigDispense QuantityRefillsLast [...] tablet by mouth daily.Active Ergocalciferol 1.25 MG (17653 UT) capsule Take 1 capsule by mouth [...] diabetic polyneuropathy, with long-term current use of hpztljr4808/25/2017Type 2 diabetes mellitus with retinopathy, with long-term current use of mejbjbd0508/25/2017 Ydpbfyztohccg70/07/2017Mixed zierutnhpejvzj36/07/2017 Assessment & Plan (03/31/2017 4:00 PM EST): Continue statin Benign bmabtfmqxeqx08/07/2017 Assessment & Plan (03/31/2017 4:01 PM EST): Moderately controlled Continue lisinopril and losartan Hfemcwxgvbm20/07/2017 Assessment & Plan (03/31/2017 4:02 PM EST): Continue synthroid. Lsrzhoxcaldbl91/07/2017 Assessment & Plan (03/31/2017 4:07 PM EST): History of noncompliance with her medications per records and local pharmacy Her local pharmacy packages her pills to encourage compliance Spoke with her pharmacy and PCP office at length to clarify her current medication list. 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 S/P successful Extraction of PPM and implant of MRI PPM 03/30 without complications. Post procedure CXR: no pneumothorax Device interrogation normal Device teaching and F/U appointment provided by Device RN. Patient has a PMH of frequent wound infections: Endocrine consulted for tight BG control: wound healing. Bipolar gvesiicwcc19/12/2009 Assessment & Plan (03/31/2017 3:59 PM EST): Continue home regime of lithium BID and seroquel Q Anxiety state, bpcalknknfn35/24/2008Headache(784.0)02/16/2008 Overview (02/03/2009): Multifactorial 2/2 migraines, Tension-THIBODEAUX. Scheduled for MRI on multiple occasions to eval for pseudotumor but pt has not followed through. Resolved Problems ProblemNoted DateDiagnosed DateResolved DateLeft ear pain Rrmwjsj50Pain in joint, ankle and foot Other dyspnea and respiratory zartzwtkpxs68Nausea alone Vomitingbdominal pain, other specified site Family History Medical HistoryRelationNameCommentsCoronary Artery DiseaseFatherDiabetesFather Coronary Artery DiseaseOtherDiabetesOtherHypertensionOtherRelationNameStatus CommentsFatherAliveMotherAliveOther Social History Tobacco UseTypesPacks/DayYears UsedDateSmoking Tobacco: FormerCigarettes0.315 11/22/1996 - 11/23/2011Smokeless Tobacco: Never Tobacco Cessation:Counseling Given: Not Answered Comments:recently restarted Alcohol UseStandard Drinks/WeekCommentsNo0 (1 standard drink = 0.6 oz pure alcohol)CommentsNoSex and Gender InformationValueDate RecordedSex Assigned at BirthNot on fileLegal ImkDwtdpu88/03/2013 6:28 AM ESTGender Identity FemaleSexual OrientationNot on file Last Filed Vital Signs Vital SignReadingTime TakenCommentsBlood Ctieqmzo296/9906/ 3:47 PM EDT Gfdrp4377 3:47 PM LICZdllkzsfnmc26.7 ??C (98 ??F)09/01/2023 2:00 PM EDT Respiratory Hjth1359 2:00 PM EDTOxygen Ffmxwtudav95%09/01/2023 2:00 PM EDTInhaled Oxygen Concentration--Bkzets86.4 kg (179 lb 7.3 oz)04/01/2017 3:41 AM DQKZnhvkj719.5 cm (5' 2 )03/30/2017 5:00 PM ESTBody Mass Index32.8203/30/2017 5:00 PM EST Plan of Treatment DateTypeDepartmentCare Team (Latest Contact Info)Svouwjobgpo20/27/2026 8:00 AM EDTOffice Visit [facility] [address] [place] [address] Geo Leach MD [address] [place] [address] Health MaintenanceDue DateLast DoneCommentsDIABETIC FOOT EXAM1977HEPATITIS C VIRUS XPWSAYGDG70/25/5715PMU1977HIV SCREENING ZTAYPOFPJO28/25/1992HEP B VACCINE (1 of 3 - 19+ 3-dose series)1996CERVICAL CANCER SCREENING CSHRBLXHWU51/25/1998URINE MICROALBUMIN TESTLIPIDS06/30/2009 06/30/2008MAMMOGRAM SCREENING ZLRAJPQWUL31/25/6078EPBMMDOIP31, 03/31/2017, 03/31/2017, Additional history existsCOLORECTAL CANCER SCREENING NEBAXXHRUH14/25/2022EYE EXAM/OVID-19 VACCINE (2 - 2025-26 season)/INFLUENZA VACCINE (#1)509/, 05/06/2023, 04/09/2022, Additional history fftrsnELT0C TEST/03/2025, 03/22/2024, 01/12/2024, Additional history ejfcntTCUOTJS06/30/203209/TDAP (ADULT)Hqockfcbu84/30/2022NEUMOCOCCAL VACCINE FMLFZMIhibwdawn53/13/2023, 03/29/2023, 03/06/2021 Medical Devices ImplantedTypeAreaManufacturerDevice IdentifierShelf Expiration DateModel / Serial / LotLead Pace Standard Mdt 5076 45cm - [id number] Implanted:Qty: 1 on 03/30/2017 [facility] N/A: HeartMEDTRONIC [id number] / [id number] / Pacer Dual Mri Advisa Chamber - [id number] Implanted:Qty: 1 on 03/30/2017 by Fatmata Jose MD at [facility] PacemakerLeft: ChestMEDTRONIC PACER09/05/2018A2DR01 / [id number] / ExplantedTypeAreaManufacturerDevice IdentifierShelf Expiration DateModel / Serial / LotLead St Justo 2087tc/46 - [id number] Implanted:Qty: 1 on 01/29/2012 by Ashish Long MD, PhD at [facility] Explanted:Qty: 1 on 03/30/2017 by Fatmata [facility]T JUSTO GDKTZDH17/30/[id number]/46 / [id number] / Pacer Biotronik [id number] - [id number] Implanted:Qty: 1 on 01/29/2012 by Ashish Long MD, PhD at [facility] Explanted:Qty: 1 on 03/30/2017 by Geo Leach MD at [facility] PacemakerN/A: ChestHIST [id number]/[id number] / [id number] / Description:Device is set at DDD-CLSImplantable Finish Off Operator Wy - [id number] Explanted:Qty: 1 on 01/29/2012 by Ashish Long MD, PhD at [facility] MEDTRONIC [id number] / [id number] / Procedures Procedure NamePriorityDate/TimeAssociated DiagnosisCommentsCHEM 7 (LYTES,BUN,CREA,GLUC)Afwiest7104/01/2017 3:40 AM EST HEMOGLOBIN O6CVevlwrm78/20/2017 2:47 PM EDT Preop exam for internal medicine Atrial fibrillation, unspecified type SSS (sick sinus syndrome) Bradycardia Type 2 diabetes mellitus treated with insulin LIPID PANEL W CALCULATED KKCXlhduuh17/06/2009 10:11 AM EST Diabetes POCT URINE MICROALBUMIN/URINE CREAT/AL:LCPfddotf10/09/2009 9:10 AM EST Diabetes from Last 3 Months or Most Recently Relevant to Health Maintenance Results * (ABNORMAL) CHEM 7 (LYTES,BUN,CREA,GLUC) (04/01/2017 3:40 AM EST)ComponentValue Ref RangeTest MethodAnalysis TimePerformed AtPathologist FoiprvjekZZB58(H)7 - 22 mg/dLLAB, IMBJYMPNR592714 - 143 mmol/LLAB, OSUPotassium3.93.5 - 5.0 mmol/L LAB, NIZXEZTNCNE88628 - 108 mmol/LLAB, OSUCARBON DIOXIDE (CO2)2622 - 30 mmol/L LAB, SCUDkzlzvq6819 - 99 mg/dLLAB, OSUCREATININE SERUM0.600.50 - 1.20 mg/dL LAB, OSUANION GAP97 - 17 mmol/LLAB, OSUBUN/CREA RPIOX25JDB, OSUOSMOLALITY (CALC)578401 - 305 mOsm/kgLAB, OSUESTIMATED GFR, NON AMER>60>60 mL/min/1.73sqMLAB, OSUESTIMATED GFR, >60>60 mL/min/1.73sqMLAB, OSUSpecimen (Source)Anatomical Location / LateralityCollection Method / Volume Collection TimeReceived Time04/01/2017 3:40 AM EST04/01/2017 4:01 AM EST Narrative Authorizing ProviderResult TypeResult StatusMikeagan Borrego CALF SKINNER-CNPCHEMISTRY ORDERABLESFinal ResultPerforming OrganizationAddressCity/State/ZIP CodePhone Number LAB, [facility] [address] [place] [address] * (ABNORMAL) HEMOGLOBIN A1C (03/13/2017 2:47 PM EDT)ComponentValueRef RangeTest MethodAnalysis TimePerformed AtPathologist SignatureHEMOGLOBIN A1C10.2(H)4.7 - 5.6 %LAB, OSUEstimated Average Mjlqjqm307db/dLLAB, OSUSpecimen (Source) Anatomical Location / LateralityCollection Method / VolumeCollection Time Received Time03/13/2017 2:47 PM EDT1 3:42 PM EDT Narrative Authorizing ProviderResult TypeResult StatusDannielle Palma CALF SKINNER-CNPHEMATOLOGY ORDERABLESFinal ResultPerforming OrganizationAddressCity/State/ZIP CodePhone Number LAB, [facility] [address] [place] [address] * (ABNORMAL) LIPID PANEL (06/30/2008 10:11 AM EST)ComponentValueRef RangeTest MethodAnalysis TimePerformed AtPathologist YwsktjdcnCCWBBQEGRWX270<200 mg/dL LAB, OSUComment: [<200 mg/dL: Desirable] ?[200-239 mg/dL: ??Borderline High] [>239 mg/dL: High] TRIGLYCERIDES-OGGQS254(H)<150 mg/dLLAB, OSUComment: [<150 mg/dL: Desirable] [150-199 mg/dL: Borderline] [200-499 mg/dL: High] [>500 mg/dL: Very High] HDL AZEBPRPYNZX63(L)>60.0 mg/dLLAB, OSUComment: [<40 mg/dL: Low (High Risk)] [>59 mg/dL: High (Low Risk)] LDL CHOLESTEROL, GZQFZSTVMC104 - 99 mg/dLLAB, OSUComment: [<100 mg/dL: Optimal] ?[100-129 mg/dL: ??Near Optimal] ?[130-159 mg/dL: ??Borderline High] ?[160-189 mg/dL: ??High] [>189 mg/dL: Very High] CHOLESTEROL, TOTAL/HDL4.8(H)<4.5LAB, OSUComment:[<4.5: Low risk]Specimen (Source)Anatomical Location / LateralityCollection Method / VolumeCollection TimeReceived Time06/30/2008 10:11 AM EST06/30/2008 10:32 AM EST Narrative Authorizing ProviderResult TypeResult StatusLinda W Strout DOCHEMISTRY ORDERABLESFinal ResultPerforming OrganizationAddressCity/State/ZIP CodePhone Number LAB, [facility] [address] [place] [address] * POCT URINE MICROALBUMIN (MICROAL/CR/AL:CR) (06/02/2008 9:10 AM EST)Component ValueRef RangeTest MethodAnalysis TimePerformed AtPathologist SignaturePOCT URINE ZIWHYYGOOSLX25 mgCREATININE, URINE SNHA459 mg10 - 300 mg/dL ALBUMIN/CREATININE RATIO, URINE POCT30 mg<=30 mg albumin/g creatinine Narrative Authorizing ProviderResult TypeResult StatusLinda W Strout DOPOINT OF CARE TESTINGEdited from Last 3 Months or Most Recently Relevant to Health Maintenance Insurance Advance Directives For more information, please contact: [phone] (7:30 AM - 6PM [facility], Thursday-Thursday) * Full Code (Latest Code Status on File) Date ActivatedDate LnlpbtjatckVougeaha88/6/2017 9:46 AM04/01/2017 3:40 PM Care Teams Team MemberRelationshipSpecialtyStart DateEnd Date Geo sultana MD [address], [address] [place] [address] PCP - GeneralClinical Cardiac Electrophysiology09/23/16 Cherelle Fierro MD [address] [facility] [address] [place] [address] Family Medicine01/30/12 George Rob DO [address] [facility] [address] [place] [address] Consulting PhysicianFami Jihdvggk63/27/17
--- OUTSIDE RECORDS SUMMARY | 2025-05-15 21:04 | XMS_ITS | Clinical Summary ---
Author Organization [facility] Address [address], [address] [place] [address] Care Team Providers Care Title Abstractor Name Role Phone George Rob DO Primary Care Provider [phone] Allergies Active AllergyReactionsCriticalityNoted DateCommentsLorazepamHallucinations 2CodeineOther (See Comments)05/25/2015 Get very angry IodidesOther (See Comments)High02/16/2017 Renal compromise PropoxypheneNausea And MvqrapgbCrq52/01/2016Ketorolac TromethamineOther (See Comments)05/25/2015 Messes with seizures FpwamzvnGiltj81/01/2016VancomycinOther (See Comments)High02/16/2017 Shuts my kidneys down Medications [...] 5 mg by mouth dailyActive nystatin (MYCOSTATIN) 271274 UNIT/GM cream Apply topically 2 times daily Apply topically 2 times daily.Active nystatin (MYCOSTATIN) 926195 UNIT/GM powder Apply topically 4 times daily [...] per patientActive Active Problems ProblemNoted DateDiagnosed DateSeizure dwsuvcqp21/01/5817Bdlozre81/01/2016Visual dscubqh8105/25/2015Type 2 diabetes mellitus with tncuedt0105/25/2015 Overview (02/22/2025): Problem List Diagnosis Replacement Utility 02/23/2024 Replacing diagnoses that were inactivated after the 02/22 regulatory import Rzgraihckuzm69/01/2016Nausea and xgouolda78/01/9675Ndeogpqq46/01/2016Sciatica of left side05/25/2015Non-intractable vomiting with nauseaPsychogenic syncope Pacemaker Immunizations ImmunizationAdministration DatesNext DueInfluenza Virus Ctnihou5605/28/2015 Family History Medical JwdtcxuAibqegunUrwxBvcqrkndGqpkgHalowxb6vevky diseaseDiabetesFatherHeart DiseaseFatherHigh Blood PressureFatherOtherMotherepilepsyRelationNameStatus HlzvxnubTrrtkyo3WtgirRqznjaVhsxxJzjtqiPyrjy Social History Tobacco UseTypesPacks/DayYears UsedDateSmoking Tobacco: FormerCigarettesQuit: 06/25/2015Smokeless Tobacco: Former Tobacco Cessation:Counseling Given: Not Answered Alcohol UseStandard Drinks/WeekCommentsNo0 (1 standard drink = 0.6 oz pure alcohol)CommentsNoSex and Gender InformationValueDate RecordedSex Assigned at BirthNot on fileLegal PwxLsoaeu73/08/2013 11:49 PM ESTGender IdentityNot on fileSexual OrientationNot on file Last Filed Vital Signs Vital SignReadingTime TakenCommentsBlood Enjpyqno352/7507 3:56 PM EDT Wxmsw87121/17/2022 3:56 PM ABWMmvtzgxuhkl81 ??C (98.6 ??F)12/08/2021 3:19 PM EDT Respiratory Vxll4525 3:56 PM EDTOxygen Ccnktlmmtl29%12/08/2021 3:56 PM EDTInhaled Oxygen Concentration--Nyengi488.4 kg (250 lb)12/08/2021 3:19 PM EDT Kccuvy573.5 cm (5' 2 )12/08/2021 3:19 PM EDTBody Mass Index45.7307 3:19 PM EDT Plan of Treatment Not on file Insurance Advance Directives * Full Code (Latest Code Status on File) Date ActivatedDate InactivatedComments05/25/2015 10:03 PM05/28/2015 9:21 PM Care Teams Team MemberRelationshipSpecialtyStart DateEnd Date George Rob DO [address] [place] [address] PCP - GeneralFamily Medicine05/28/15
[2025-05-15 21:58] LABS: Hematocrit 37.7 % (36.0-48.0); Hemoglobin 12.8 g/dL (12.0-16.0); Immature Granulocytes Abs Auto 0.05 10^3/uL (0.00-0.03); Immature Granulocytes Pct Auto 0.5 % (0.0-0.5); Lymphocytes Absolute Auto 1.7 10^3/uL (1.2-3.8); Mean Corpuscular HGB Conc 34.0 g/dL (29.9-35.2); Mean Corpuscular Hemoglobin 30.8 pg (26.7-34.0); Mean Corpuscular Volume 90.8 fL (81.0-99.0); Platelet Count 342 10^3/uL (150-450); Red Blood Count 4.15 10^6/uL (4.20-5.40); White Blood Count 10.6 10^3/uL (4.0-11.0)
[2025-05-15] MEDS: OXYCODONE HCL/ACETAMINOPHEN 5MG/325MG 1 TAB PO (21:59)
[2025-05-15] MEDS: 0.9 % SODIUM CHLORIDE 1,000 ML 1000 ML IV (22:00)
[2025-05-15 22:18] LABS: Alanine Aminotransferase 12 U/L (14-59); Albumin Globulin Ratio 0.8; Albumin Level 3.3 g/dL (3.4-5.0); Alkaline Phosphatase 121 U/L (46-116); Anion Gap 14.1; Aspartate Amino Transferase 9 U/L (15-37); Blood Urea Nitrogen 28.0 mg/dL (7.0-18.0); Calcium 9.6 mg/dL (8.5-10.1); Carbon Dioxide 27.3 mmol/L (21.0-32.0); Chloride 100 mmol/L (98-107); Estimated GFR (African America 35 (>=60 mL/min/1.73m^2); Estimated GFR (Non-African Ame 29 (>=60 mL/min/1.73m^2); Globulin 4.0 g/dL; Glucose 427 mg/dL (74-106); Potassium 4.4 mmol/L (3.5-5.1); Sodium 137 mmol/L (136-145); Total Protein 7.3 g/dL (6.4-8.2)
[2025-05-15] MEDS: METHYLPREDNISOLONE SOD SUCC PF 125 MG/2 ML VIAL IVP (22:47)
[2025-05-15 23:36] VITALS: BP 158/98; PULSE 112; O2SAT 96
== END 2025-05-16 01:18 | disposition short-term general hospital (02) ==
PROVIDERS: Emergency Provider Emergency Medicine; PCP Student in an Organized Health Care Education/Training Program
DX: M51.26 Other intervertebral disc displacement, lumbar region (principal); R53.1 Weakness; E11.65 Type 2 diabetes mellitus with hyperglycemia; Z86.73 Personal history of transient ischemic attack (TIA), and cerebral infarction without residual deficits; Z79.4 Long term (current) use of insulin; F17.200 Nicotine dependence, unspecified, uncomplicated; E66.9 Obesity, unspecified; M54.9 Dorsalgia, unspecified; G89.29 Other chronic pain; Z68.42 Body mass index [BMI] 45.0-49.9, adult
CPT/HCPCS: 36415; 72131; 76376; 80053; 85025; 96374; 96375; 99285; J2405; J2919

== ENCOUNTER 2025-05-23 20:52 | Emergency (ER) | payer OTHER, SELFPAY ==
--- OUTSIDE RECORDS SUMMARY | 2025-05-16 02:28 | XMS_ITS | Encounter Summary ---
Author Organization [facility] Address [address] [place] [address] Care Team Providers Care Cooker Syrup Name Role Phone Mk Conti MD Unavailable Kyle Lopez MD Primary Care Provider [phone]- [phone] Reason for Referral * Imaging (Routine) - Pending ReviewSpecialtyDiagnoses / ProceduresReferred By ContactReferred To ContactRadiology Diagnoses Weakness of lower extremity, unspecified laterality Fall, initial encounter Lumbar spondylosis Chronic low back pain with bilateral sciatica, unspecified back pain laterality Procedures CT lumbar spine w IV contrast Mary Lou Deluna CNP [address] [place] [address] Phone: tel: fax: [facility] Imaging [address] [facility] [place] [address] Phone: tel: fax: Referral IDStatusReasonStart DateExpiration DateVisits RequestedVisits [id number]/ * Imaging (Routine) - AuthorizedSpecialtyDiagnoses / ProceduresReferred By ContactReferred To ContactRadiology Diagnoses Fall, initial encounter Chronic low back pain with bilateral sciatica, unspecified back pain laterality Procedures CT thoracic spine w IV contrast Mary Lou Deluna CNP [address] [place] [address] Phone: tel: fax: Radiology [place] [address] Phone: tel: fax: Referral IDStatusReasonStart DateExpiration DateVisits RequestedVisits [id number]/ * Imaging (Routine) - Pending ReviewSpecialtyDiagnoses / ProceduresReferred By ContactReferred To ContactRadiology Diagnoses Weakness of lower extremity, unspecified laterality Fall, initial encounter Arm weakness Procedures CT cervical spine w IV contrast Mary Lou Deluna CNP [facility] [place] [address] Phone: tel: fax: Referral IDStatusReasonStart DateExpiration DateVisits RequestedVisits [id number] Reason for Visit * Auth/Cert (Routine)SpecialtyDiagnoses / ProceduresReferred By ContactReferred To Contact Diagnoses Inability to ambulate due to hip lower extremity numbness Procedures NO CODED SERVICE Jairo Bean MD [address] [place] [address] Phone: tel: fax: [address] Ortho Surgery [facility] [place] [address] Phone: tel: Referral IDStatusReasonStlodi DateExpiration DateVisits RequestedVisits [id number] Encounter Details DateTypeDepartmentCare Team (Latest Contact Info)Petbbrsltxo21/23/2025 2:28 AM EST - 05/17/2025 2:30 PM ESTHospital Encounter [address] Ortho Surgery [address] [place] [address] Jairo Bean MD [address] [place] [id number] Shaikh Pierce MD [address] [place] [address] Inability to ambulate due to hip (Primary Dx); Weakness of lower extremity, unspecified laterality; Fall, initial encounter; Arm weakness; Lumbar spondylosis; Chronic low back pain with bilateral sciatica, unspecified back pain laterality; Contrast media allergy; Acquired hypothyroidism; Coronary artery disease involving lummi coronary artery of lummi heart without angina pectoris Discharge Disposition: Home or Self Care (01) Social History Tobacco UseTypesPacks/DayYears UsedDateSmoking Tobacco: Every DayCigarettes Smokeless Tobacco: NeverAlcohol UseStandard Drinks/WeekCommentsNever0 (1 standard drink = 0.6 oz pure alcohol)Humiliation, Afraid, Rape, and Kick questionnaireAnswerDate RecordedWithin the last year, have you been afraid of your partner or ex-partner?No05/16/2025Emotionally AbusedNot on file05/16/2025 Physically AbusedNot on file05/16/2025Sexually AbusedNot on file05/16/2025 Overall Financial Resource Strain (CARDIA)AnswerDate RecordedHow hard is it for you to pay for the very basics like food, housing, medical care, and heating?Not hard at all05/16/2025HC UtilitiesAnswerDate RecordedIn the past 12 months has the [place], oil, or water [employer] threatened to shut off services in your home?No05/16/2025TransportationAnswerDate RecordedIn the past 12 months, has lack of transportation kept you from medical appointments or from getting medications?No05/16/2025Lack of Transportation (Non-Medical)Not on file 05/16/2025Housing Stability Vital SignAnswerDate RecordedIn the last 12 months, was there a time when you were not able to pay the mortgage or rent on time?No 05/16/2025Number of Times Moved in the Last YearNot on file05/16/2025t any time in the past 12 months, were you homeless or living in a [place] (including now)? No05/16/2025Hunger Vital SignAnswerDate RecordedWithin the past 12 months, you worried that your food would run out before you got the money to buymore.Never true05/16/2025Ran Out of Food in the Last YearNot on file05/16/2025 CommentsUnknownSex and Gender InformationValueDate RecordedSex Assigned at Qycruy6605/16/2025 2:28 AM ESTLegal SskPlhick18/29/2022 9:59 PM EDTGender Identity Yclazc4605/16/2025 2:28 AM ESTSexual OrientationDon't know05/16/2025 2:28 AM EST documented as of this encounter Last Filed Vital Signs Vital SignReadingTime TakenCommentsBlood Erzcpssa95/5905/17/2025 9:31 AM EST Rntbv632905/17/2025 9:31 AM QNCKtphckqboyf64.4 ??C (97.5 ??F)05/17/2025 7:17 AM ESTRespiratory Nrkv219407/18/2024 7:17 AM ESTOxygen Qwlwamiogx53%05/17/2025 9:31 AM ESTInhaled Oxygen Concentration--Qotgcx814 kg (285 lb 11.5 oz)05/17/2025 4:06 AM WZINnpbek003.5 cm (5' 2 )05/16/2025 3:00 AM ESTBody Mass Index52.26107/17/2024 3:00 AM ESTdocumented in this encounter Functional Status * Suicidal IdeationQuestionAnswerDate of AssessmentAuthor1. Wish to be (Lifetime)No05/16/2025 2:38 AM Kayleigh Aldana RN2. Non-Specific Active Suicidal Thoughts (Lifetime)No05/16/2025 2:38 AM Kayleigh Aldana RN documented as of this encounter Discharge Summaries * Shaikh Stan MD - 05/17/2025 8:56 AM EST Images from the original note were not included. Hospital Medicine Discharge Summary Admission Date: 05/16/2025 2:28 AM Total duration of encounter: 1 day Primary discharge Diagnosis: Inability to ambulate Fall, subsequent encounter Type 2 diabetes with long-term insulin use with hyperglycemia Degenerative disc disease of lumbar region Secondary discharge diagnoses Coronary artery disease Seizure disorder Hyperlipidemia Morbid obesity with BMI of 52 Admission Diagnosis: Inability to ambulate due to hip [R26.2] Hospital course: Lisa Jean Baptiste is a 50-year-old female with a complex medical history including poorly controlled diabetes mellitus, hypertension, CHF, CAD status post SC ??2, chronic low back pain with discogenic disease, seizure disorder on Keppra, urinary and bowel incontinence, and sick sinus syndrome status post pacemaker/AICD who was transferred from [facility] for evaluation of worsening xrrsg-er-dqtkqxe low back pain with bilateral lower-extremity numbness and reported inability to ambulate following a fall; on arrival she was noted to be a somewhat inconsistent historian with longstanding symptoms, chronic wheelchair use for approximately two years due to frequent falls, and nondermatomal bilateral leg pain and numbness without acute focal neurologic deficits or urinary retention. Patientwas eval by neurosurgery team that recommended MRI initially but it could not be performed because of her AICD. They recommended CT myelogram but it could not be performed because of her aspirin and Plavix use. Neurosurgical consultation determined there was no emergent surgical indication and recommended outpatient imaging with CT myelogram due to her pacemaker; her hospital course was further notable for severe hyperglycemia with glucose levels exceeding 500 mg/dL attributed to medication noncompliance and failure to place her insulin pump prior to presentation, which improved after initiation of basal insulin and sliding-scale coverage. Patient requested transfer to [facility]. After discussion with their neurosurgery team, itwas felt that she did not need a transfer to their facility and can follow-up with neurosurgery team as outpatient after undergoing CT myelogram. She was offered group home facility placement but refused and was agreeable to home health services. Surgical, Invasive or Diagnostic Procedures Done During Admission: None Consultations During Admission: Neurosurgery Dear MD John, Lisa is advised to follow up with you within 1-2 weeks. Items to follow up in ambulatory setting: None Follow-up with: Neurosurgery Scheduled appointments: No future appointments. Your medication list PAUSE taking these medications Instructions Last Dose Given Next Dose Due aspirin 81 mg EC tablet Wait to take this until your doctor or other care provider tells you to start again. START taking these medications Instructions Last Dose Given Next Dose Due diphenhydrAMINE 50 mg tablet Commonly known as: BENADryl Take 1 tablet (50 mg) by mouth 1 (one) time. One hour prior to myelogram. levothyroxine 75 mcg tablet Commonly known as: Synthroid, Levoxyl metoprolol succinate XL 50 mg 24 hr tablet Commonly known as: Toprol-XL predniSONE 50 mg tablet Commonly known as: Deltasone Take 1 tablet 13 hours before, 7 hours before, and 1 hour before the myelogram. CONTINUE taking these medications Instructions Last Dose Given Next Dose Due atorvastatin 20 mg tablet Commonly known as: Lipitor Take 1 tablet (20 mg) by mouth at bedtime. Point.iocom G7 Sensor device Generic drug: blood-glucose sensor hydrOXYzine pamoate 100 mg capsule Commonly known as: Vistaril insulin lispro 100 unit/mL injection Commonly known as: HumaLOG Klayesta 100,000 unit/gram powder Generic drug: nystatin nystatin cream Commonly known as: Mycostatin levETIRAcetam 1,000 mg tablet Commonly known as: Keppra oxyCODONE-acetaminophen 7.5-325 mg tablet Commonly known as: Percocet pregabalin 75 mg capsule Commonly known as: Lyrica QUEtiapine 400 mg tablet Commonly known as: SEROquel tiZANidine 4 mg capsule Commonly known as: Zanaflex Trulicity 0.75 mg/0.5 mL pen injector Generic drug: dulaglutide STOP taking these medications lamoTRIgine 25 mg tablet Commonly known as: LaMICtal paliperidone 9 mg 24 hr tablet Commonly known as: Invega Where to Get Your Medications These medications were sent to [facility]/pharmacy #[id number] AT [place] [address] diphenhydrAMINE 50 mg tablet predniSONE 50 mg tablet Lisa is allergic to codeine, fentanyl, linezolid, lorazepam, tramadol, vancomycin, propoxyphene n-acetaminophen, acetaminophen, adhesive tape- silicones, ibuprofen, latex, nsaids (non-steroidal anti-inflammatory drug), prochlorperazine, iodinated contrast media, and propoxyphene. Disposition: Home or Self Care () Discharge Condition: Stable Code Status: Full Code Diagnostic Results Hematology: Results from last 7 days Lab Units 05/17/25 0628 05/16/25 0608 WBC AUTO 10*3/uL 11.60* 15.37* HEMOGLOBIN g/dL 9.7* 12.7 HEMATOCRIT % 29.0* 37.7 MCV fL 90.3 90.8 PLATELETS AUTO 10*3/uL 351 371 Chemistry: Results from last 7 days Lab Units 05/17/25 0628 05/16/25 1041 SODIUM mmol/L 132* 130* POTASSIUM mmol/L 4.6 5.0 CHLORIDE mmol/L 102 98 CO2 mmol/L 26 24 BUN mg/dL 42* 31* CREATININE mg/dL 1.76* 1.42* GLUCOSE mg/dL 290* 393* CALCIUM mg/dL 8.3* 8.9 No lab exists for component: AFIO2 , APHT , APCOT , APOT , ATCO2 , CK , ALB , IBILI Diet at the time of discharge: diabetic diet Activity: Advance activity as tolerated Objective Blood pressure (!) 95/46, pulse 59, temperature 36.4 ??C (97.5 ??F), temperature source Oral, resp.rate 18, height 1.575 m (5' 2 ), weight 130 kg (285 lb 11.5 oz), SpO2 94%. General: Alert and oriented x3. Obese Cardiology: Normal rate, regular rhythm. Lungs: Clear to auscultation, no wheezes, rales or rhonchi, symmetric air entry. Abdomen: Soft, non tender, non distended. Neuro: Bilateral lower extremity weakness. Reports bilateral numbness that is unchanged from before Total time for discharge - review of data, exam, discussion with providers and care-team, med-rec and orders, arranging follow up, counseling of patient and/or family and documentation was 41 minutes. Signed Shaikh Stan MD [facility] Medicine 05/17/2025 8:56 AM CC: MD John documented in this encounter Discharge Instructions * Discharge Instr - Activity* Mariola Johnson RN - 05/17/2025 9:57 AM EST Activity as tolerated Fall precautions Ambulate with assistance * Discharge Instr - Diet* Mariola Johnson RN - 05/17/2025 9:57 AM EST Regular Diet Heart Healthy/HTN, CABG,Stroke, (2 grams of sodium per day, low fat, low cholesterol) documented in this encounter Medications at Time of Discharge MedicationSigDispense QuantityRefillsLast FilledStart DateEnd Date aspirin 81 mg EC tablet Take 81 mg by mouth in the morning. Dexcom G7 Sensor device CHANGE EVERY 10 DAYS hydrOXYzine pamoate (Vistaril) 100 mg capsule Take 100 mg by mouth at bedtime. insulin lispro (HumaLOG) 100 unit/mL injection Inject under the skin. With insulin pump up to 80 units daily Klayesta 100,000 unit/gram powder Apply 1 Application topically two times daily. For 14 days levETIRAcetam (Keppra) 1,000 mg tablet Take 1,000 mg by mouth two times daily. levothyroxine (Synthroid, Levoxyl) 75 mcg tablet Indications:Acquired hypothyroidismTake 1 tablet (75 mcg) by mouth before breakfast. 30 tablet metoprolol succinate XL (Toprol-XL) 50 mg 24 hr tablet Indications:Coronary artery disease involving lummi coronary artery of lummi heart without angina pectorisTake 1 tablet (50 mg) by mouth in the morning. Do not crush or chew. 30 tablet nystatin (Mycostatin) cream Apply 1 Application topically two times daily. Under breasts oxyCODONE-acetaminophen (Percocet) 7.5-325 mg tablet Take 1 tablet by mouth every 8 (eight) hours if needed for severe pain (8-10 pain score). predniSONE (Deltasone) 50 mg tablet Indications:Contrast media allergyTake 1 tablet 13 hours before, 7 hours before, and 1 hour before the myelogram. 3 tablet 05/16/2025 pregabalin (Lyrica) 75 mg capsule Take 75 mg by mouth two times daily. QUEtiapine (SEROquel) 400 mg tablet Take 800 mg by mouth at bedtime. tiZANidine (Zanaflex) 4 mg capsule Take 4 mg by mouth if needed in the morning, at noon, and at bedtime. Trulicity 0.75 mg/0.5 mL pen injector Inject 0.75 mg under the skin 1 (one) time per week. documented as of this encounter Progress Notes * ANSELMO Cool - 05/17/2025 1:20 PM EST Discharge Planning: Patient is declining a group home facility. The patient could not be linked to home healthcaredue to insurance. Patient will be discharged home. [employer] set up a cab through the patient's medicaid and will be picked up at 2:15PM. * Preston Aguilar - 05/17/2025 11:09 AM EST Images from the original note were not included. [facility] at [address] [place] [address] Preston Aguilar MD, Interim Chief MD Marcelino Jacobs MD Margo Joubran, PA-C Alexandrea Vizzaccaro, PA-C Austin Howard, PA-C Manali Pragani, MD, Fellow Ayush Hogue MD, Fellow Stanislaw Ashley MD, Fellow Danielle Albarran MD, Fellow NO NEED to PAGE for NEW CONSULTS Use Endocrinology Team for epic chat After 5 pm during weekdays or on weekend/holiday, contact the knitter operator for immediate attention. Diabetes Management Service Progress Note Patient : iLsa Jean Baptiste; 50 y.o. Location: 6120/6120-02 Admit Date: 05/16/2025 Hospital Day: Hospital Day: 2 Reason for Consult: Diabetes management Subjective History of Present Illness: No chief complaint on file. History: Lisa Jean Baptiste is a 50 y.o. female with diabetes mellitus type 1 who was admitted with LE weakness and inability to ambulate. Patient was in her home and fell while she was trying to get to the bathroom. She was taken to [facility] initially. NSGY was contacted given concerning symptoms and she was transferred to [facility] overnight for further care. Patient sees Dr. Sergio Resendez for endocrinology. Most recent Hb A1c is 9% today, 05/16/2025. ROS/Subjective/Interval history: Food intake: [x] Good [] Decreased [] Poor [] NPO Symptom Yes No Comment Hypoglycemia [] [x] When: Decreased appetite [] [x] Nausea [] [x] Vomiting [] [x] Abdominal discomfort/pain [] [x] Review of Systems Objective Physical Exam: BP 90/59 Pulse 65 Temp 36.4 ??C (97.5 ??F) (Oral) Resp 18 Ht 1.575 m (5' 2 ) Wt 130 kg (285 lb 11.5 oz) SpO2 95% BMI 52.26 kg/m?? Physical Exam Vitals reviewed. Constitutional: General: She is not in acute distress. Appearance: She is not ill-appearing, toxic-appearing or diaphoretic. Comments: Lying in bed comfortably, coherent Neurological: Mental Status: She is alert. Intake/Output: No intake or output data in the 24 hours ending 05/17/25 1110 Steroids / Other Glycemia-Affecting Medications: [NO] Diet/Nutrition: Dietary Orders (From admission, onward) Start Ordered 05/16/25 0322 Regular Diet Heart Healthy/HTN, CABG,Stroke, (2gNA, low fat, low cholesterol) Diet effective now Question Answer Comment Room Service? Yes Fat restriction: Heart Healthy/HTN, CABG,Stroke, (2gNA, low fat, low cholesterol) 05/16/25 0321 Recent Labs: LABS: HbA1c: Lab Results Component Value Date HGBA1C 9.0 (H) 05/16/2025 HGBA1C 10.7 (H) 10/01/2024 Results from last 7 days Lab Units 05/17/25 0628 05/16/25 1041 BETA HYDROXYBUTYRATE mmol/L -- 0.10 PH VENOUS TEMP ADJUSTED -- 7.34 POTASSIUM mmol/L 4.6 5.0 Lab Results Component Value Date WBC 11.60 (H) 05/17/2025 HGB 9.7 (L) 05/17/2025 HCT 29.0 (L) 05/17/2025 PLT 351 05/17/2025 Lab Results Component Value Date ALT 11 10/01/2024 AST 9 (L) 10/01/2024 CREATININE 1.76 (H) 05/17/2025 EGFR 35.3 (L) 05/17/2025 Lab Results Component Value Date CHOL 219 (H) 10/01/2024 LDLCALC 129 10/01/2024 HDL 49 10/01/2024 TRIG 207 (H) 10/01/2024 Cholesterol in LDL by direct assay: No results found for: LDLDIRECT NON-HDL cholesterol: Lab Results Component Value Date LDL 170 10/01/2024 MICROALB/CREAT RATIO: No results found for: MICROALBCREA , MICROALBUR No components found for: NT PRO-BNP Lab Results Component Value Date BNP 19 10/01/2024 Lab Results Component Value Date TSH 3.71 10/01/2024 No results found for: FREET4 No results found for: ETD55UV , IA2 , ZNT8A , NTIB , CPEPTIDE Assessment/Plan Blood Glucose Monitoring Results, Interpretation Results from last 7 days Lab Units 05/17/25 0707 05/17/25 0628 05/16/25 2039 05/16/25 1626 05/16/25 1129 05/16/25 1041 05/16/25 0935 05/16/25 0711 05/16/25 0411 POCT GLUCOSE mg/dL 272* -- 390* 262* 371* -- 392* 495* 527* GLUCOSE mg/dL -- 290* -- -- -- 393* -- -- -- Results/Impression/Conclusion: [] Basal/Bolus insulin imbalance with significant glycemic variability: consider adjusting basal insulin-bolus insulin ratio close to 50%-50% of TDD (total daily dose of insulin) [] Overnight blood glucose reduction: consider decreasing basal insulin (Lantus) or bedtime correctional insulin (Humalog) [] Fasting hypoglycemia: consider decreasing basal insulin (Lantus) or bedtime correctional insulin(Humalog) [] Postprandial hypoglyemia: consider decreasing prandial or meal insulin (Humalog) after [] breakfast [] lunch [] evening meal [] nighttime snack [] Hypoglycemia due to over-correction [x] Fasting hyperglycemia: consider increasing basal insulin (Lantus) [x] Postprandial hyperglycemia: onsider increasing prandial or meal insulin (Humalog) after [x] breakfast [x] lunch [x] evening meal [] nighttime snack [] Hyperglycemia due to missing or improper timing of the scheduled dose of insulin/glucose-lowering medication Generally, change insulin by 10 to 30 % depending on the severity of glycemic excursions. For noncritically ill individuals (those not in the ICU), a glycemic goal of 100-180 mg/dL (premeal<140 mg/dL) is recommended. For most critically ill individuals (those in the ICU), a glycemic goal of 140- 180 mg/dL is recommended. For selected individuals (e.g., those undergoing cardiac surgery), more stringent glycemic goals (110-140 mg/dL) may be appropriate. Blood glucoses above 200 mg/dl are [facility] monitored performance measures. Assessment and Plan [x] Lab results were reviewed Lisa Jean Baptiste has diabetes mellitus [Type 1] with hyperglycemia and also complicated by nephropathy, retinopathy, peripheral neuropathy, cardiovascular disease, and cerebrovascular disease. Admitted with LE weakness and inability to ambulate. [x] Unstable-Improving but further adjustment needed as below [] Unstable-Worse and significant adjustment needed as below [] Stable and no changes needed DIABETES MELLITUS [Type 1] with hyperglycemia Last HbA1c: Lab Results Component Value Date HGBA1C 9.0 (H) 05/16/2025 Results from last 7 days Lab Units 05/17/25 0628 CREATININE mg/dL 1.76* EGFR mL/min/1.73m*2 35.3* The following changes were made: Basal insulin: glargine (or Lantus) : _25_units, [] daily AM [] daily at bedtime [x] BID (10 AM, 10 PM) Prandial or meal insulin: lispro (or Humaolog): [x] by insulin to carb ratio = 1 unit for [ 2.5 ] grams of carbohydrate in a meal AC [] _ _ units every 4 hours for continuous tube feeding (Provide ~30% of TDI as basal insulin) Correctional insulin: lispro (or Humaolog): [] 1-5 AC (above 150), 1-4 HS (above 200) [x] 2-10 AC (above 150), 2-8 HS (above 200) [] 3-15 AC (above 150), 3-12 HS (above 200) For while NPO or tube feeding or TPN [] 1-5 q4h (above 180) [] 2-10 q4h (above 180) Thank you for consulting our Diabetes Management Team (Endocrinology). We will continue to follow up. * ANSELMO Duque - 05/16/2025 4:40 PM EST Advised by [facility] pt is wanting to discharge home w/ C. Pt also requesting a transfer to [facility] in [place] which [facility] is involved in. Spoke w/ pt about [facility] preferences and she would like to try for [facility]. Advised pt a referral will be sent but due to her medicaid insurance a mass referral will need sent due to limited number of providers. Pt also consented to sending referral to [facility] as a backup in case she changes her mind about needing placement. UPDATE 5:55PM- Advised by , [facility] is NOT accepting pt for transfer. * Mary Lou Mike OT - 05/16/2025 4:03 PM EST Occupational Therapy Occupational Therapy Evaluation Patient Name: Lisa Jean Baptiste : 1975 Today's Date: 05/16/2025 Start Time: 1441 Stop Time: 1500 Time Calculation (min): 19 min OT Evaluation Time Entry OT Evaluation (Moderate) Time Entry: 19 General Subjective: No one cares so I guess I don't care. RN ok for pt to be seen OOB at this time. Pt R side-lying in bed, agreeable to EOB sitting with encouragement. Pt completed EOB sitting, difficultyand pain with any movement. Pt returned to sideyling in bed with call light and needs in reach. Patient Summary: 50yoF presents from OSH with LE weakness, numbness, unable to ambulate at home s/pfall while trying to go to bathroom. Unable to get MRI 2o pacemaker. Plan for CT Myelogram but unable to at this time 2o medications. OT Diagnosis: Decreased independence in functional tasks s/p fall Problem List[1] Medical History[2] Surgical History[3] Precautions Precautions LE Weight Bearing Status: (no restrictions at this time per chart) Medical Precautions: fall risk, IV, telemetry Pain Pain Assessment Pain Assessment: 0-10 Pain Score: 9 Pain Type: Acute pain, Chronic pain Pain Location: Back Pain Orientation: Right, Left Pain Radiating Towards: into jocelyne LEs L>R Pain Descriptors: Sharp, Shooting Cognition Cognition Overall Cognitive Status: Within Functional Limits Arousal/Alertness: Appropriate responses to stimuli Orientation Level: Oriented X4 Following Commands: Follows all commands and directions without difficulty Safety Judgment: Good awareness of safety precautions Awareness of Errors: Good awareness of errors made Deficits: Fully aware of deficits (Pt is hyperaware of deficits) Attention Span: Appears intact Memory: Appears intact Problem Solving: Able to problem solve independently Communication: Intact General Assessment General Assessment Hearing: appears WFL Skin Integrity: All visible skin intact, surgical incision covered Edema: None noted Hand Dominance: Right Home Living Home Living Type of Home: House Lives With: Family (Pt mentions daughter lives there but that son assists with a lot of things. unsure if he lives there or not) Home Adaptive Equipment: Cane, Wheelchair-power Home Layout: Two level, Able to live on main level with bedroom/bathroom, 1/2 bath on main level Home Access: Stairs to enter with rails Entrance Stairs-Rails: Both Entrance Stairs-Number of Steps: 4 Bathroom Shower/Tub: (Pt does not go to bathroom on second level) Bathroom Toilet: Standard Bathroom Accessibility: Pt sponge bathes, does not go to full bath on second level per report Prior Level of Function Prior Function Level of Pike: Needs assistance with ADLs, Needs assistance with homemaking Prior Functional Mobility: Independent with cane (can in the home, power wheelchair in the community) History of Falls: fall leading to admission Receives Help From: Family ADL Assistance: Needs assistance (Pt reports she is able to sponge bathe herself, son has to assistwith some portions of dressing, he is always SBA and assists as needed) Homemaking Assistance: Needs assistance (family completes all IADLs) Prior IADLs Static Sitting Balance Static Sitting Balance Static Sitting-Balance Support: Right upper extremity supported, Left upper extremity supported, Unilateral upper extremity supported, Feet unsupported Static Sitting-Level of Assistance: Close supervision Dynamic Sitting Balance Dynamic Sitting Balance Dynamic Sitting-Balance Support: Right upper extremity supported, Feet unsupported Dynamic Sitting-Balance: Lateral lean Dynamic Sitting Balance-Level of Assistance: Contact guard Static Standing Balance Static Standing Balance Static Standing-Comment/Number of Minutes: Pt did not wish to complete this session 2o pain Dynamic Standing Balance ADL ADL Bathing Assistance: Maximal Bathing Deficit: Buttocks, Perineal area, Right lower leg including foot, Left lower leg including foot UE Dressing Assistance: Minimal LE Dressing Assistance: Total LE Dressing Deficit: Don/doff R sock, Don/doff L sock, Thread RLE into pants, Thread LLE into pants, Thread RLE into underwear, Thread LLE into underwear, Pull up over hips Toileting Assistance with Device: Total Toileting Deficit: Clothing management up, Clothing management down, Perineal hygiene Bed Mobility Bed Mobility Bed Mobility: Yes Bed Mobility 1 Bed Mobility From 1: Side lying-right Bed Mobility Type 1: To and from Bed Mobility to 1: Short sit Level of Assistance 1: Moderate assistance Bed Mobility Comments 1: assist at trunk, assist with jocelyne LEs Bed Mobility 2 Bed Mobility From 2: Short sit Bed Mobility Type 2: To Bed Mobility to 2: Scooting Level of Assistance 2: Maximum assistance Bed Mobility Comments 2: while sitting EOB, Max assist to scoot hips Transfers Transfers Ambulation comments: unable to complete this session Transfer: No Objective General Assessments Activity Tolerance Endurance: Stage I Stage I (METs 1.0-1.4) - Sitting: <5 mins Activity Tolerance Comments: Pt only able to tolerate EOB sitting this session. Pt reports significant pain while completing bed mobility and while sitting EOB, behaviors do no reflect pain that is limiting pt on this date. Vision - Basic Assessment Current Vision: Wears glasses all the time Vision - Complex Assessment Vision Comments: Pt reports she currently can't see out of her left eye and reports this just happens sometimes, there is bleeding behind my eye. Pt reports she has had cataract surgery x2 and doesnot want to have another surgery and this happens intermittently. Sensation Light Touch: Severe deficits in the RLE, Severe deficits in the LLE Sensation Comments: Pt reports both numbness and tingling Proprioception Proprioception: No apparent deficits Perception Inattention/Neglect: Appears intact Initiation: Appears intact Motor Planning: Appears intact Perseveration: Not present Coordination Movements are Fluid and Coordinated: No Coordination and Movement Description: grossly impaired jocelyne LEs. L>R Hand Function Gross Grasp: Functional Coordination: Functional Extremity Assessments RUE Assessment RUE Assessment: Within Functional Limits LUE Assessment LUE Assessment: Within Functional Limits Outcome Assessments AM-PAC 6 Clicks Putting on and taking off regular lower body clothing?: Unable (Total Assist) Bathing(Including washing,rinsing,drying)?: A Lot (Mod/Max Assist) Toileting, which includes using the toilet,bedpan,or urinal?: A Lot (Mod/Max Assist) Putting on and taking off regular upper body clothing?: A Little (Min Assist/Contact Guard/Supervision) Taking care of personal grooming such as brushing teeth?: A Little (Min Assist/Contact Guard/Supervision) Eating meals?: None (Independent) Total Score OT [facility]: 15 Assessment/Plan OT Assessment OT Impairments: Decreased ADL status, Decreased safe judgment during ADL, Decreased endurance, Decreased IADLs, Decreased trunk control for functional activities, Decreased functional mobility OT Assessment/RYAN Summary: Pt presents s/p fall and LE pain and weakness, inability to ambulate with decreased overall activity tolerance, back pain and LE weakness impacting independence when completing ADLs. Pt would benefit from continued skilled occupational therapy to maximize safety and independence when completing functional tasks and functional transfers. At current time, pt does not demonstrate the functional ability to return to prior living arrangements safety. Continued skilled occupational therapy is recommended prior to discharge home. Prognosis: Good Evaluation/Treatment Tolerance: Patient tolerated treatment well Medical Staff Made Aware: Yes OT Education/Comments: Purpose of session, safety, fall prevention, ADL modifications/technique Plan Level of assist: 2 assist Treatment Interventions: ADL retraining, Functional transfer training, Patient/family training, Equipment evaluation/education, Neuromuscular reeducation, Endurance training OT Plan: Skilled OT OT Frequency: 5 times per week OT Discharge Recommendations: Patient is NOT able to return to prior living environment, additionaltherapy needed Equipment Recommended: (CTA) OT - Discharge Recommendations Placed: Yes OT Goals Multi-Disciplinary Problems (from Occupational Therapy) Active Problems Problem: Bathing Start Date: 05/16/25 Goal Start Date Expected End Date End Date LTG - Patient will utilize adaptive techniques to bathe body with moderate assistance 05/16/25 05/30/25 -- Problem: Dressings Lower Extremities Start Date: 05/16/25 Goal Start Date Expected End Date End Date LTG - Patient will dress lower body with minimal assistance 05/16/25 05/30/25 -- Problem: Dressing Upper Extremities Start Date: 05/16/25 Goal Start Date Expected End Date End Date LTG - Patient will complete upper body dressing with stand-by/contact guard 05/16/25 05/30/25 -- Problem: Grooming Start Date: 05/16/25 Goal Start Date Expected End Date End Date LTG - Patient will utilize adaptive techniques/equipment to complete daily grooming activities withstand-by/contact guard 05/16/25 05/30/25 -- Problem: Toileting Start Date: 05/16/25 Goal Start Date Expected End Date End Date LTG - Patient will utilize adaptive techniques/equipment to complete daily toileting tasks with moderate assistance 05/16/25 05/30/25 -- Problem: Transfers Start Date: 05/16/25 Goal Start Date Expected End Date End Date LTG - Patient will perform bed mobility with stand-by/contact guard 05/16/25 05/30/25 -- Problem: OT Misc Start Date: 05/16/25 Goal Start Date Expected End Date End Date Pt will demo increased activity tolerance by participating in 20 minutes of dyn. sitting/standing tasks in least restrictive environment with SBA/CGA as needed for safe completion of all functional tasks and functional ambulation/transfers. 05/16/25 05/30/25 -- Goal Start Date Expected End Date End Date Pt will complete functional transfers with minimal assistance using least restrictive device. Beginwith brenda sterling, stand pivot, AAT 05/16/25 05/30/25 -- ASwansinger OTR/L, MOT [1] Patient Active Problem List Diagnosis NSTEMI (non-ST elevated myocardial infarction) ([facility]) Type 2 diabetes mellitus with circulatory disorder, with long-term current use of insulin ([facility]) Sick sinus syndrome ([facility]) Acute renal failure with acute tubular necrosis superimposed on stage 3a chronic kidney disease ([facility]) Seizure ([facility]) Bipolar 1 disorder ([facility]) Acquired hypothyroidism Class 3 severe obesity due to excess calories with serious comorbidity and body mass index (BMI) of50.0 to 59.9 in adult ([facility]) Plantar ulcer of left foot, limited to breakdown of skin ([facility]) Hypocalcemia Lower extremity weakness Unable to ambulate Uncontrolled type 2 diabetes mellitus with hyperglycemia ([facility]) CAD (coronary artery disease) Hx of myocardial infarction Degeneration of lumbar or lumbosacral intervertebral disc Fall Inability to ambulate due to hip [2] Past Medical History: Diagnosis Date Anxiety Bipolar 1 disorder ([facility]) Blind left eye Cardiac arrest ([facility]) 2019 Chronic back pain Chronic kidney disease Coronary artery disease Depression Diabetes mellitus ([facility]) with diabetic retinopathy and nephropathy Dyslipidemia Heart failure ([facility]) Hypertension Hypothyroidism Insomnia MRSA (methicillin resistant Staphylococcus aureus) 2014 Pacemaker Schizoaffective disorder ([facility]) Seizures ([facility]) SSS (sick sinus syndrome) ([facility]) Stroke ([facility]) Urinary incontinence [3] Past Surgical History: Procedure Laterality Date AMPUTATION FOOT / TOE hallux CARDIAC PACEMAKER PLACEMENT 2011, replaced with MRI compatible [employer] system at [facility] 03/30/2017 CHOLECYSTECTOMY HYSTERECTOMY TOE AMPUTATION * Lucina Durand PT - 05/16/2025 3:00 PM EST Physical Therapy Physical Therapy Evaluation Patient Name: Lisa Jean Baptiste : 1975 Today's Date: 05/16/2025 Start Time: 1441 Stop Time: 1500 Time Calculation (min): 19 min PT Evaluation Time Entry PT Evaluation (Moderate) Time Entry: 19 General Subjective: I tried sitting up earlier and I couldn't because of pain. RN and pt agreeable to PT eval this date. Co-eval with OT. Pt R sidelying in bed upon arrival and exit with alarm on and call light/needs in reach, RN aware. Pt cooperative with gentle encouragement. Patient Summary: Pt is a 50 year old female admitted today from OSH following fall in bathroom. Pt with lower extremity numbness, inability to ambulate, excruciating low back pain from lumbar disc disease/herniation. Neurosurgery consulted. Per secure chat, Mary Lou Deluna NUCLEAR MEDICINE OFFICER states therapy is OK to work with pt as she has chronic issues. Multiple imaging ordered. PT Diagnosis: decreased functional mobility Problem List[1] Medical History[2] Surgical History[3] Precautions Precautions Medical Precautions: fall risk, IV, telemetry Pain Pain Assessment Pain Assessment: 0-10 Pain Score: 9 Pain Type: Chronic pain Pain Location: Back Pain Orientation: Right, Left Pain Radiating Towards: to BLEs L>R Cognition Cognition Overall Cognitive Status: Within Functional Limits Arousal/Alertness: Appropriate responses to stimuli Orientation Level: Oriented X4 Following Commands: Follows all commands and directions without difficulty Deficits: Fully aware of deficits (hyper-aware) Attention Span: Appears intact Memory: Appears intact Communication: Intact General Assessment General Assessment Hearing: appears WFL Skin Integrity: All visible skin intact, surgical incision covered Edema: None noted Hand Dominance: Right Home Living Home Living Type of Home: House Lives With: Daughter Home Adaptive Equipment: Cane, Wheelchair-power Home Layout: Two level, Able to live on main level with bedroom/bathroom, 1/2 bath on main level Home Access: Stairs to enter with rails Entrance Stairs-Rails: Both Entrance Stairs-Number of Steps: 4 Bathroom Shower/Tub: (pt does not accesss shower on second level) Bathroom Toilet: Standard Bathroom Accessibility: Pt sponge bathes, does not go to full bath on second level per report Prior Level of Function Prior Function Level of Pike: Needs assistance with ADLs, Needs assistance with homemaking Prior Functional Mobility: Independent with cane, Household distances, Independent with wheelchair,Community distances (PWC in community) History of Falls: fall leading to admission Receives Help From: Family ADL Assistance: Needs assistance (Pt reports she is able to sponge bathe herself, son has to assistwith some portions of dressing, he is always SBA and assists as needed) Homemaking Assistance: Needs assistance (family completes) Vision Basic Assessment Vision - Basic Assessment Current Vision: Wears glasses all the time Vision - Complex Vision - Complex Assessment Vision Comments: Pt reports she currently can't see out of her left eye and reports this just happens sometimes, there is bleeding behind my eye. Pt reports she has had cataract surgery x2 and doesnot want to have another surgery and this happens intermittently. General Assessments Activity Tolerance Endurance: Stage I Stage I (METs 1.0-1.4) - Sitting: <5 mins Number of Rest Breaks: 2 Activity Tolerance Comments: Pt with mild SOB and demos increase in fatigue with minimal activity. Primarily limited d/t c/o back pain, though pain behaviors do not reflect pain rating. Sensation Light Touch: Severe deficits in the RLE, Severe deficits in the LLE Proprioception Proprioception: No apparent deficits Perception Inattention/Neglect: Appears intact Initiation: Appears intact Motor Planning: Appears intact Perseveration: Not present Coordination Movements are Fluid and Coordinated: No Coordination and Movement Description: globally impaired Postural Control Posture Assessment: good alignment in sitting Postural Control: Within Functional Limits Static Sitting Balance Static Sitting-Balance Support: Right upper extremity supported, Left upper extremity supported, Feet supported Static Sitting-Level of Assistance: Close supervision Dynamic Sitting Balance Dynamic Sitting-Balance Support: Right upper extremity supported, Left upper extremity supported, Feet supported Dynamic Sitting Balance-Level of Assistance: Contact guard Static Standing Balance Static Standing-Comment/Number of Minutes: ISABEL, pt defers further mobilty d/t c/o severe back pain Functional Assessments Bed Mobility Bed Mobility: Yes Bed Mobility 1 Bed Mobility From 1: Side lying-right Bed Mobility Type 1: To and from Bed Mobility to 1: Short sit Level of Assistance 1: Moderate assistance Bed Mobility Comments 1: Assist for trunk and LE progression. Questionable effort given. Transfers Transfer: No (pt defers) Extremity Assessments RUE Assessment RUE Assessment: Within Functional Limits LUE Assessment LUE Assessment: Within Functional Limits RLE Assessment RLE Assessment: Exceptions to WFL (Pt demos 2+/5 knee strength sitting EOB and 3/5 ankle. Does not tolerate resistance given from therapist d/t pain.) LLE Assessment LLE Assessment: Exceptions to WFL (Pt reports inability to move LLE when prompted, noted to move LEin bed after testing. Unable to tolerate any PROM to knee sitting EOB d/t c/o severe pain. Inconsistencies noted.) Outcome Assessments 6 Clicks (Mobility) Help from another person turning from your back to your side while in a flat bed without using bedrails: None Help from another person moving from lying on your back to sitting on the side of a flat bed without using bedrails: A lot Help from another person moving to and from a bed to a chair (including a wheelchair): Total Help from another person standing up from a chair using your arms (e.g. wheelchair or bedside chair): Total Help from another person to walk in hospital room: Total Help from another person climbing 3-5 steps with a railing: Total Mobility 6 Clicks T-Score: 10 Assessment/Plan PT Assessment Impairments: Decreased strength, Decreased endurance, Impaired balance, Decreased mobility, Decreased coordination, Impaired sensation, Obesity, Pain PT Assessment: Pt presents with above deficits affecting their ability to perform functional mobility. Pt requires assist for safe mobility and would be unsafe to return to previous living environment at this time d/t weakness and fall risk. Pt is functioning below baseline and will benefit from skilled PT services to address deficits to improve functional mobility to maximize independence. Prognosis: Fair Evaluation/Treatment Tolerance: Patient limited by pain Medical Staff Made Aware: Yes PT Education/Comments: POC, positioning Plan Level of assist: 2 assist Treatment/Interventions: Functional transfer training, LE strengthening/ROM, Endurance training, Patient/family training, Equipment eval/education, Bed mobility, Balance training PT Plan: Skilled PT PT Frequency: 4 times per week PT Discharge Recommendations: Patient is NOT able to return to prior living environment, additionaltherapy needed PT - Discharge Recommendations Placed: Yes PT Goals Multi-Disciplinary Problems (from Physical Therapy) Active Problems Problem: Mobility Start Date: 05/16/25 Problem: Transfers Start Date: 05/16/25 Goal Start Date Expected End Date End Date STG - Transfer from bed to chair/various surfaces with moderate assistance using device as appropriate 05/16/25 05/30/25 -- Goal Start Date Expected End Date End Date STG - Patient to transfer to and from sit to supine with no assistance 05/16/25 05/30/25 -- Goal Start Date Expected End Date End Date STG - Patient will transfer sit to and from stand with moderate assistance using device as appropriate 05/16/25 05/30/25 -- Problem: PT Misc Start Date: 05/16/25 Goal Start Date Expected End Date End Date Maximize strength in BLEs to facilitate ease and safety of transfers and functional mobility. 05/16/25 05/30/25 -- Goal Start Date Expected End Date End Date Pt will participate in at least 30 minutes of therapy with HR and SPO2 WNL to show improved activity tolerance. 05/16/25 05/30/25 -- Goal Start Date Expected End Date End Date Pt will demo ability to perform 10+ minutes of seated dynamic balance tasks without UE support to improve sitting balance for ADLs and functional mobility 05/16/25 05/30/25 -- Goal Start Date Expected End Date End Date Pt will improve 6-clicks score by 2-4 points to show improved functional mobility during hospital stay. 05/16/25 05/30/25 -- Lucina Durand, PT, DPT [1] Patient Active Problem List Diagnosis NSTEMI (non-ST elevated myocardial infarction) ([facility]) Type 2 diabetes mellitus with circulatory disorder, with long-term current use of insulin ([facility]) Sick sinus syndrome ([facility]) Acute renal failure with acute tubular necrosis superimposed on stage 3a chronic kidney disease ([facility]) Seizure ([facility]) Bipolar 1 disorder ([facility]) Acquired hypothyroidism Class 3 severe obesity due to excess calories with serious comorbidity and body mass index (BMI) of50.0 to 59.9 in adult ([facility]) Plantar ulcer of left foot, limited to breakdown of skin ([facility]) Hypocalcemia Lower extremity weakness Unable to ambulate Uncontrolled type 2 diabetes mellitus with hyperglycemia ([facility]) CAD (coronary artery disease) Hx of myocardial infarction Degeneration of lumbar or lumbosacral intervertebral disc Fall Inability to ambulate due to hip [2] Past Medical History: Diagnosis Date Anxiety Bipolar 1 disorder ([facility]) Blind left eye Cardiac arrest ([facility]) 2019 Chronic back pain Chronic kidney disease Coronary artery disease Depression Diabetes mellitus ([facility]) with diabetic retinopathy and nephropathy Dyslipidemia Heart failure ([facility]) Hypertension Hypothyroidism Insomnia MRSA (methicillin resistant Staphylococcus aureus) 2014 Pacemaker Schizoaffective disorder ([facility]) Seizures ([facility]) SSS (sick sinus syndrome) ([facility]) Stroke ([facility]) Urinary incontinence [3] Past Surgical History: Procedure Laterality Date AMPUTATION FOOT / TOE hallux CARDIAC PACEMAKER PLACEMENT 2011, replaced with MRI compatible [employer] Mobility system at [facility] 03/30/2017 CHOLECYSTECTOMY HYSTERECTOMY TOE AMPUTATION * Elizabeth Clark, JustinD, [facility] - 05/16/2025 11:22 AM EST [facility] is [facility] 50 y.o. year old female. Patient has allergies to: Codeine, Fentanyl, Linezolid, Lorazepam, Tramadol, Vancomycin, Propoxyphene n-acetaminophen, Acetaminophen, Adhesive tape-silicones, Ibuprofen, Latex, Nsaids (non-steroidal anti- inflammatory drug), Prochlorperazine, and Propoxyphene Patient fills at [facility] ([phone] ). Medication list was obtained from patient and pharmacy. Home medication list has been updated. Patient reports non-compliance with many medications including: metoprolol, aspirin, atorvastatin, paliperidone, and levothyroxine reporting she hasn't taken these meds in over a month. Patient provided pill organizer to assist with compliance upon discharge. Please call pharmacy with any questions. Thanks, Elizabeth Clark PharmD, BCPS, 05/16/25 * Mary Lou Mike OT - 05/16/2025 9:06 AM EST Occupational Therapy OT Check no charge Name: Lisa Jean Baptiste Date of : 1975 Today's Date: 05/16/25 Pt is unable to be seen for therapy at this time secondary to pending neurosurg consult. 50yoF presents to OSH s/p fall in the bathroom, lower extremity numbness, inability to ambulate, excruciating low back pain from lumbar disc disease/herniation. Patient states there is also loss of sensation inthe lower extremities. Since has been unable to ambulate. Pt transferred for additional care. Will check back and complete therapy session as appropriate. Check No Charge Time attempted: 908 Rocael OTR/L, MOT * Lucina Durand, PT - 05/16/2025 8:33 AM EST Physical Therapy Name: Lisa Jean Baptiste Date of : 1975 Today's Date: 05/16/25 Pt is unable to be seen for therapy at this time secondary to awaiting neurosurgery consult. Pt admitted from OSH following a fall in the bathroom, lower extremity numbness, inability to ambulate, excruciating low back pain from lumbar disc disease/herniation. Will check back and complete therapy session as appropriate. Check No Charge Time attempted: 08 Lucina Durand PT, DPT documented in this encounter H&P Notes * Jairo Bean MD - 05/16/2025 3:11 AM EST Images from the original note were not included. Hospital Medicine History and Physical 05/16/2025 3:11 AM THE HOSPITALIST TEAM PREFERS TO USE [employer] CHAT FOR NON-URGENT COMMUNICATION 7AM- 7PM. IF I DO NOT RESPOND WITHIN 20 MINUTES OR URGENT MATTERS, PLEASE CALL THROUGH THE BICYCLE RENTAL CLERK. FROM 7PM-7AM, PLEASE PAGE [phone](COVR). Chief Complaint No chief complaint on file. History of Present Illness Lisa Jean Baptiste is an 50 y.o. female who came from [facility] with lower ext weakness and numbnessand inability to ambulate. Patient is a 50-year-old female with the following past medical history; hypertension, diabetes, history of CHF, CAD, status post SC x 2, chronic back pain, history of discogenic disease, urinary incontinence, history of sick sinus syndrome status post AICD/pacemaker placement. She presents to the hospital on transfer from [facility] where she was evaluated because of fall in the bathroom, lower extremity numbness, inability to ambulate, excruciating low back pain from lumbar disc disease/herniation. Patient states there is also loss of sensation in the lower extremities. She will ordinarily ambulates via cane and wheelchair but states that since the fall and since yesterday patient has not been able to ambulate. ER at [facility] evaluated the patient and called neurosurgery who agreed for patient to be transferred to [facility]. Patient had in the past been seen at orthopedics in [facility] but has since not beenseen there consequently she is coming to [facility]. Blood pressures 131/100 pulse rate was 109 respiration was 18 and pulse oximetry was 100% and this was on room air. Laboratory investigation done at [facility]; sodium was 137 potassium was 4.4 chloride 100 CO2 27 BUN 28 creatinine 1.8 and serum glucose was 428. Repeat here at [place] was about 500. Patient has been started on sliding scale and glargine. She was very particular about being restarted on her Percocet, Lyrica, tizanidine and Seroquel. Her other medications were not that important to her and herblood sugar is over 500. Patient also has seizure disorder and is on Keppra. She is being admitted to the hospital, will commence management of the blood sugar and route consults on home medications and consult neurosurgery. Review of System and Physical Exam Temp: [37.3 ??C (99.1 ??F)] 37.3 ??C (99.1 ??F) Heart Rate: [101] 101 Resp: [18] 18 BP: (160)/(97) 160/97 Physical Exam Constitutional: General: She is not in acute distress. Appearance: She is obese. She is not ill-appearing, toxic-appearing or diaphoretic. HENT: Head: Normocephalic and atraumatic. Mouth/Throat: Mouth: Mucous membranes are moist. Pharynx: Oropharynx is clear. Eyes: Extraocular Movements: Extraocular movements intact. Pupils: Pupils are equal, round, and reactive to light. Cardiovascular: Rate and Rhythm: Regular rhythm. Tachycardia present. Heart sounds: No murmur heard. No gallop. Pulmonary: Effort: Pulmonary effort is normal. Breath sounds: No stridor. No wheezing, rhonchi or rales. Abdominal: General: There is no distension. Palpations: Abdomen is soft. There is no mass. Tenderness: There is no abdominal tenderness. There is no guarding. Hernia: No hernia is present. Musculoskeletal: General: No tenderness. Normal range of motion. Cervical back: Normal range of motion and neck supple. Skin: General: Skin is warm and dry. Neurological: General: No focal deficit present. Mental Status: She is alert and oriented to person, place, and time. Sensory: Sensory deficit present. Motor: Weakness present. Gait: Gait abnormal. Psychiatric: Mood and Affect: Mood normal. Behavior: Behavior normal. Review of Systems Constitutional: Positive for activity change, fatigue and unexpected weight change. HENT: Negative. Eyes: Negative. Respiratory: Negative. Cardiovascular: Positive for palpitations. Gastrointestinal: Negative. Endocrine: Negative. Genitourinary: Negative. Musculoskeletal: Positive for back pain, gait problem (unable to ambulate.) and myalgias. Skin: Negative. Allergic/Immunologic: Negative. Neurological: Positive for weakness and numbness. Hematological: Negative. Psychiatric/Behavioral: Negative. Assessment and Plan 50-year-old lady with the medical problems as mentioned above coming in with lower extremity weakness and numbness, lumbar disc disease, inability to ambulate, wholly uncontrolled diabetes with bloodsugar of over 500 mg per DL. Assessment & Plan Unable to ambulate -Fall precaution very important - Support during ambulation or even keep patient bed confined - PT/OT - Social service for discharge planning when appropriate Lower extremity weakness -Same measures as above - Patient will need an MRI of the brain - Neurosurgery consultation SEKOU Fall -Send measures as above Uncontrolled type 2 diabetes mellitus with hyperglycemia ([facility]) -Monitor patient's blood sugar ACHS - Use regular insulin for sliding scale coverage - Commence patient on glargine 25 mg every 12 hours - If blood sugar does not improve may use insulin drip - Obtain A1c - Resume and reconcile home medications as appropriate Degeneration of lumbar or lumbosacral intervertebral disc -Pain control - May need to place patient on steroids, muscle relaxers, as well as pain medication. - These have already been reconciled including Lyrica, tizanidine, Seroquel and Percocet CAD (coronary artery disease) -History of CAD - Status post SC - Resume aspirin, atorvastatin, metoprolol - Placed on telemetry Hx of myocardial infarction -Old, currently no chest pain - Will monitor patient's cardiac status DVT prophylaxis using VTE protocols per [facility] GI protection Protonix Monitor labs and correct all abnormalities Placed on sliding scale Consult neurosurgery I discussed the plan of care with the patient and her bedside RN and there seems to be agreement. VTE Prophylaxis: Heparin subcutaneous ----- Focus of this inpatient stay will remain on problems that need acute care setting for care. We will review available studies and will order additional labs, imaging and other studies as appropriate. As needed medicines are ordered as appropriate. VTE Prophylaxis will be ordered as appropriate. Please see above for management plan for individual hospital problems. Home medications are reviewed and will be continued as appropriate. Patient will be continued to be followed during this hospital stay by a member of [facility]. Past Medical History Medical History[1] Past Surgical History Surgical History[2] Social History Social History Socioeconomic History Marital status: Spouse name: Not on file Number of children: Not on file Years of education: Not on file Highest education level: Not on file Occupational History Not on file Tobacco Use Smoking status: Every Day Types: Cigarettes Smokeless tobacco: Never Vaping Use Vaping status: Never Used Substance and Sexual Activity Alcohol use: Never Drug use: Never Sexual activity: Defer Other Topics Concern Not on file Social History Narrative Not on file Social Drivers of Health Financial Resource Strain: Low Risk (05/16/2025) Overall Financial Resource Strain (CARDIA) Difficulty of Paying Living Expenses: Not hard at all Food Insecurity: No Food Insecurity (05/16/2025) Hunger Vital Sign Worried About Running Out of Food in the Last Year: Never true Ran Out of Food in the Last Year: Not on file Transportation Needs: No Transportation Needs (05/16/2025) Transportation Lack of Transportation (Medical): No Lack of Transportation (Non-Medical): Not on file Physical Activity: Not on file Stress: Not on file Social Connections: Not on file Intimate Partner Violence: Unknown (05/16/2025) Humiliation, Afraid, Rape, and Kick questionnaire Fear of Current or Ex-Partner: No Emotionally Abused: Not on file Physically Abused: Not on file Sexually Abused: Not on file Housing Stability: Low Risk (05/16/2025) Housing Stability Vital Sign Unable to Pay for Housing in the Last Year: No Number of Times Moved in the Last Year: Not on file Homeless in the Last Year: No Family History Family history is unknown by patient. Allergies is allergic to codeine, fentanyl, linezolid, lorazepam, tramadol, vancomycin, propoxyphene n-acetaminophen, acetaminophen, adhesive tape-silicones, nsaids (non-steroidal anti-inflammatory drug), prochlorperazine, and propoxyphene. Prior to Admission Medications Prescriptions Prior to Admission[3] Labs Labs Reviewed - No data to display Imaging Vascular US lower extremity arterial duplex bilateral Narrative: Procedure: The lower extremity arteries were evaluated by ultrasound, Doppler flow, color Doppler, spectral analysis, and velocity measurement. This included evaluation of the peak systolic velocity. The segments evaluated including the commonfemoral artery, proximal superficial femoral artery, mid- superficial femoral artery, distal superficial femoral artery, popliteal artery, proximally and distally all calf arteries. Evaluation performed of stent (s) if present. Procedure: The lower extremity arteries were evaluated by ultrasound, Doppler flow, color Doppler, spectral analysis, and velocity measurement. This included evaluation of the peak systolic velocity. The segments evaluated including the commonfemoral artery, proximal superficial femoral artery, mid- superficial femoral artery, distal superficial femoral artery, popliteal artery, proximally and distally all calf arteries. Evaluation performed of stent (s) if present. Impression: Right: Heterogeneous plaque with multiphasic Doppler signals [...] Doppler signals and no significant spectral Doppler orcolor flow disturbances noted in common femoral, deep [...] of significant arterial occlusive disease both legs. Signed Jairo Bean MD [facility] 05/16/2025 3:11 AM [1] Past Medical History: Diagnosis Date Anxiety Bipolar 1 disorder (CMS/HCC) Cardiac arrest ([facility]) 2019 Chronic back pain Chronic kidney disease Coronary artery disease Depression Diabetes mellitus ([facility]/HCC) Hypertension Insomnia Pacemaker Schizoaffective disorder ([facility]/HCC) Seizures (CMS/HCC) Stroke (CMS/[facility]) [2] Past Surgical History: Procedure Laterality Date CARDIAC PACEMAKER PLACEMENT CHOLECYSTECTOMY HYSTERECTOMY TOE AMPUTATION [3] Medications Prior to Admission Medication Sig Dispense Refill Last Dose/Taking aspirin 81 mg EC tablet Take 81 mg by mouth in the morning. atorvastatin (Lipitor) 20 mg tablet Take 1 tablet (20 mg) by mouth at bedtime. 30 tablet 0 brexpiprazole (Rexulti) 1 mg tablet Take 1 mg by mouth in the morning. citalopram (CeleXA) 40 mg tablet Take 40 mg by mouth in the morning. diphenhydrAMINE-acetaminophen (Tylenol PM) 25-500 mg per tablet Take 1 tablet by mouth if needed atbedtime for sleep. hydrOXYzine HCL (Atarax) 50 mg [...] Take 75 mcg by mouth before breakfast. loratadine (Claritin) 10 mg tablet Take 10 [...] or split. pantoprazole (ProtoNix) 40 mg EC tablet Take 40 mg by mouth before breakfast. Do not crush, chew, or split. polyethylene glycol (Glycolax) 17 gram packet Take 17 g by mouth if needed each day. pregabalin (Lyrica) 75 mg capsule Take 75 mg by mouth two times daily. QUEtiapine (SEROquel) 400 mg tablet Take 400 mg by mouth at bedtime. tiZANidine (Zanaflex) 4 mg capsule Take 8 mg by mouth three times daily. urea (Carmol) 40 % cream Apply topically two times daily. documented in this encounter Consult Notes * Prachi Cisneros MD - 05/16/2025 10:34 AM ESTAssociated Order(s): IP CONSULT TO ENDOCRINOLOGY Images from the original note were not included. [facility] [place] [address] [place] [address] Preston Aguilar MD, Interim Chief MD Marcelino Jacobs MD Margo Joubran, PA-C Alexandrea Vizzaccaro, PA-C Austin Howard, PA-C Manali Pragani, MD, Fellow Ayush Hogue MD, Fellow Stanislaw Ashley MD, Fellow Danielle Albarran MD, Fellow NO NEED to PAGE for NEW CONSULTS Use Endocrinology Team for epic chat After 5 pm during weekdays or on weekend/holiday, contact the knitter operator for immediate attention. Diabetes Management Service Consult Note Patient : Lisa Jean Baptiste; 50 y.o. Location: [id number] Admit Date: 05/16/2025 Hospital Day: Hospital Day: 1 Reason for Consult: Diabetes management Subjective History of Present Illness: Lisa Jean Baptiste is a 50 y.o. female with diabetes mellitus type 1 who was admitted with LE weakness and inability to ambulate. Patient was in her home and fell while she was trying to get to the bathroom. She was taken to [facility] initially. NSGY was contacted given concerning symptoms and she was transferred to [facility] overnight for further care. Patient sees Dr. Sergio Resendez for endocrinology. Most recent Hb A1c is 9% today, 05/16/2025. DIABETES HISTORY: Diabetes Mellitus [Type 1] Onset of diabetes(at age OR at which year?): age 23 Complications: Known diabetic complications: retinopathy, peripheral neuropathy, cardiovascular disease, and cerebrovascular disease Cardiovascular risk factors: diabetes mellitus, dyslipidemia, family history of premature cardiovascular disease, hypertension, obesity (BMI >= 30 kg/m2), and sedentary lifestyle Home insulin regimen: Omnipod 5 with Lispro, does not have reader with her Home regimen: Home blood glucose monitoring: Dexcom G7 Hypoglycemia frequency: Rare Hypoglycemic awareness: Intact Steroids / Other Glycemia-Affecting Medications: [NO] Inpatient diet/nutrition: Dietary Orders (From admission, onward) Start Ordered 05/16/25 0322 Regular Diet Heart Healthy/HTN, CABG,Stroke, (2gNA, low fat, low cholesterol) Diet effective now Question Answer Comment Room Service? Yes Fat restriction: Heart Healthy/HTN, CABG,Stroke, (2gNA, low fat, low cholesterol) 05/16/25 0321 Medical History[1] Surgical History[2] Prior to Admission medications Medication Sig Start Date End Date Taking? Authorizing Provider Dexcom G7 Sensor device CHANGE EVERY 10 DAYS Yes Historical Provider, hydrOXYzine pamoate (Vistaril) 100 mg capsule Take 100 mg by mouth at bedtime. Yes Historical Provider, insulin lispro (HumaLOG) 100 unit/mL injection Inject under the skin. With insulin pump up to 80 units daily Yes Historical Provider, MD Greenestleonila 100,000 unit/gram powder Apply 1 Application topically two times daily. For 14 days Yes Historical Provider, levETIRAcetam (Keppra) 1,000 mg tablet Take 1,000 mg by mouth two times daily. Yes Historical Provider, oxyCODONE-acetaminophen (Percocet) 7.5-325 mg tablet Take 1 tablet by mouth every 8 (eight) hours if needed for severe pain (8-10 pain score). Yes Historical Provider, paliperidone (Invega) 9 mg 24 hr tablet Take 9 mg by mouth in the morning. Do not crush, chew, or split. Yes Historical Provider, pregabalin (Lyrica) 75 mg capsule Take 75 mg by mouth two times daily. Yes Historical Provider, QUEtiapine (SEROquel) 400 mg tablet Take 800 mg by mouth at bedtime. Yes Historical Provider, tiZANidine (Zanaflex) 4 mg capsule Take 8 mg by mouth in the evening. Yes Historical Provider, aspirin 81 mg EC tablet Take 81 mg by mouth in the morning. Historical Provider, atorvastatin (Lipitor) 20 mg tablet Take 1 tablet (20 mg) by mouth at bedtime. Patient not taking: Reported on 05/16/2025 10/05/24 11/04/24 Maye Negrete DO brexpiprazole (Rexulti) 1 mg tablet Take 1 mg by mouth in the morning. Patient not taking: Reported on 05/16/2025 Historical Provider, citalopram (CeleXA) 40 mg tablet Take 40 mg by mouth in the morning. Patient not taking: Reported on 05/16/2025 Historical ProviderMD diphenhydrAMINE-acetaminophen (Tylenol PM) 25-500 mg per tablet Take 1 tablet by mouth if needed atbedtime for sleep. Historical ProviderMD lamoTRIgine (LaMICtal) 25 mg tablet please see attached for detailed directions Historical ProviderMD levothyroxine (Synthroid, Levoxyl) 75 mcg tablet Take 75 mcg by mouth before breakfast. Patient not taking: Reported on 05/16/2025 Historical ProviderMD loratadine (Claritin) 10 mg tablet Take 10 mg by mouth in the morning. Historical Provider, metoprolol succinate XL (Toprol-XL) 50 mg 24 hr tablet Take 50 mg by mouth in the morning. Do not crush or chew. Patient not taking: Reported on 05/16/2025 Historical ProviderMD nortriptyline (Pamelor) 25 mg capsule Take 25 mg by mouth at bedtime. Patient not taking: Reported on 05/16/2025 Historical ProviderMD ondansetron (Zofran) 4 mg tablet Take 4 mg by mouth every 8 (eight) hours if needed for nausea or vomiting. Historical Provider, pantoprazole (ProtoNix) 40 mg EC tablet Take 40 mg by mouth before breakfast. Do not crush, chew, or split. Patient not taking: Reported on 05/16/2025 Historical ProviderMD polyethylene glycol (Glycolax) 17 gram packet Take 17 g by mouth if needed each day. Historical Provider, Trulicity 0.75 mg/0.5 mL pen injector Inject 0.75 mg under the skin 1 (one) time per week. Historical Provider, urea (Carmol) 40 % cream Apply topically two times daily. Historical Provider, hydrOXYzine HCL (Atarax) 50 mg tablet Take 50 mg by mouth every 6 (six) hours if needed for itching. Patient not taking: Reported on 05/16/2025 05/16/25 Historical ProviderMD Current Medications[3] Allergies[4] Social History[5] Review of Systems: Review of Systems Eyes: Negative for photophobia. Respiratory: Negative for shortness of breath. Gastrointestinal: Negative for nausea and vomiting. Neurological: Positive for weakness and numbness. Psychiatric/Behavioral: Negative for agitation and confusion. Objective Physical Exam: BP 172/88 (BP Location: Left arm, Patient Position: Lying) Pulse 102 Temp 37.1 ??C (98.8 ??F) (Oral) Resp 16 Ht 1.575 m (5' 2 ) Wt 127 kg (280 lb 6.8 oz) SpO2 94% BMI 51.29 kg/m?? Physical Exam Constitutional: Appearance: She is obese. She is not diaphoretic. HENT: Head: Normocephalic. Mouth/Throat: Mouth: Mucous membranes are moist. Cardiovascular: Rate and Rhythm: Tachycardia present. Pulmonary: Effort: Pulmonary effort is normal. Neurological: Mental Status: She is alert and oriented to person, place, and time. Psychiatric: Mood and Affect: Mood normal. Behavior: Behavior normal. Intake/Output: No intake or output data in the 24 hours ending 05/16/25 1509 Recent Labs: LABS: HbA1c: Lab Results Component Value Date HGBA1C 9.0 (H) 05/16/2025 HGBA1C 10.7 (H) 10/01/2024 Results from last 7 days Lab Units 05/16/25 1041 BETA HYDROXYBUTYRATE mmol/L 0.10 PH VENOUS TEMP ADJUSTED 7.34 POTASSIUM mmol/L 5.0 Lab Results Component Value Date WBC 15.37 (H) 05/16/2025 HGB 12.7 05/16/2025 HCT 37.7 05/16/2025 PLT 371 05/16/2025 Lab Results Component Value Date ALT 11 10/01/2024 AST 9 (L) 10/01/2024 CREATININE 1.42 (H) 05/16/2025 EGFR 45.6 (L) 05/16/2025 Lab Results Component Value Date CHOL 219 (H) 10/01/2024 LDLCALC 129 10/01/2024 HDL 49 10/01/2024 TRIG 207 (H) 10/01/2024 Cholesterol in LDL by direct assay: No results found for: LDLDIRECT NON-HDL cholesterol: Lab Results Component Value Date LDL 170 10/01/2024 MICROALB/CREAT RATIO: No results found for: MICROALBCREA , MICROALBUR No components found for: NT PRO-BNP Lab Results Component Value Date BNP 19 10/01/2024 Lab Results Component Value Date TSH 3.71 10/01/2024 No results found for: FREET4 No results found for: JEN49OB , IA2 , ZNT8A , NTIB , CPEPTIDE Assessment/Plan Blood Glucose Monitoring Results, Interpretation Results from last 7 days Lab Units 05/16/25 1129 05/16/25 1041 05/16/25 0935 05/16/25 0711 05/16/25 0411 POCT GLUCOSE mg/dL 371* -- 392* 495* 527* GLUCOSE mg/dL -- 393* -- -- -- Results/Impression/Conclusion: [] Basal/Bolus insulin imbalance with significant glycemic variability: consider adjusting basal insulin-bolus insulin ratio close to 50%-50% of TDD (total daily dose of insulin) [] Overnight blood glucose reduction: consider decreasing basal insulin (Lantus) or bedtime correctional insulin (Humalog) [] Fasting hypoglycemia: consider decreasing basal insulin (Lantus) or bedtime correctional insulin(Humalog) [] Postprandial hypoglyemia: consider decreasing prandial or meal insulin (Humalog) after [] breakfast [] lunch [] evening meal [] nighttime snack [] Hypoglycemia due to over-correction [x] Fasting hyperglycemia: consider increasing basal insulin (Lantus) [x] Postprandial hyperglycemia: onsider increasing prandial or meal insulin (Humalog) after [x] breakfast [] lunch [] evening meal [] nighttime snack [] Hyperglycemia due to missing or improper timing of the scheduled dose of insulin/glucose-lowering medication Generally, change insulin by 10 to 30 % depending on the severity of glycemic excursions. For noncritically ill individuals (those not in the ICU), a glycemic goal of 100-180 mg/dL (premeal<140 mg/dL) is recommended. For most critically ill individuals (those in the ICU), a glycemic goal of 140- 180 mg/dL is recommended. For selected individuals (e.g., those undergoing cardiac surgery), more stringent glycemic goals (110-140 mg/dL) may be appropriate. Blood glucoses above 200 mg/dl are [facility] monitored performance measures. Assessment and Plan [x] Lab results were reviewed Lisa Jean Baptiste has diabetes mellitus [Type 1] with hyperglycemia and also complicated by nephropathy, retinopathy, peripheral neuropathy, cardiovascular disease, and cerebrovascular disease. Admitted with LE weakness and inability to ambulate. DIABETES MELLITUS [Type 1] with hyperglycemia Last HbA1c: Lab Results Component Value Date HGBA1C 9.0 (H) 05/16/2025 HGBA1C 10.7 (H) 10/01/2024 Results from last 7 days Lab Units 05/16/25 1041 CREATININE mg/dL 1.42* EGFR mL/min/1.73m*2 45.6* The following changes were made: Basal insulin: glargine (or Lantus) : _25_units, [] daily AM [] daily at bedtime [x] BID (10 AM, 10 PM) Prandial or meal insulin: lispro (or Humalog): [x] by insulin to carb ratio = 1 unit for [ 5 ] grams of carbohydrate in a meal AC [] _ _ units every 4 hours for continuous tube feeding (Provide ~30% of TDI as basal insulin) Correctional insulin: lispro (or Humaolog): [] 1-5 AC (above 150), 1-4 HS (above 200) [x] 2-10 AC (above 150), 2-8 HS (above 200) [] 3-15 AC (above 150), 3-12 HS (above 200) For while NPO or tube feeding or TPN [] 1-5 q4h (above 180) [] 2-10 q4h (above 180) Thank you for consulting our Diabetes Management Team (Endocrinology). We will continue to follow up. [1] Past Medical History: Diagnosis Date Anxiety Bipolar 1 disorder ([facility]) Blind left eye Cardiac arrest ([facility]) 2018 Chronic back pain Chronic kidney disease Coronary artery disease Depression Diabetes mellitus ([facility]) with diabetic retinopathy and nephropathy Dyslipidemia Heart failure ([facility]) Hypertension Hypothyroidism Insomnia MRSA (methicillin resistant Staphylococcus aureus) 2014 Pacemaker Schizoaffective disorder ([facility]) Seizures ([facility]) SSS (sick sinus syndrome) ([facility]) Stroke ([facility]) Urinary incontinence [2] Past Surgical History: Procedure Laterality Date AMPUTATION FOOT / TOE hallux CARDIAC PACEMAKER PLACEMENT 2011, replaced with MRI compatible Meddtronic system at [facility] 03/30/2017 CHOLECYSTECTOMY HYSTERECTOMY TOE AMPUTATION [3] Current Facility-Administered Medications: alteplase (Cathflo Activase) injection 2 mg, 2 mg, intra-catheter, PRN, Shaikh Stan MD, 2 mg at 05/16/25 0825 atorvastatin (Lipitor) tablet 20 mg, 20 mg, oral, Nightly, Jairo Bean MD glucose chewable tablet 24 g, 24 g, oral, q15 min PRN OR dextrose 50 % in water (D50W) syringe 25 g, 25 g, intravenous, q15 min PRN, Jairo Bean MD diazePAM (Valium) tablet 5 mg, 5 mg, oral, Daily PRN, Mary Lou Deluna CNP heparin (porcine) injection 5,000 Units, 5,000 Units, subcutaneous, q12h SAMEER, Shaikh Stan MD, 5,000 Units at 05/16/25 1116 hydrOXYzine HCL (Atarax) tablet 50 mg, 50 mg, oral, q6h PRN, Shaikh Stan MD hydrOXYzine pamoate (Vistaril) capsule 100 mg, 100 mg, oral, Nightly PRN, Shaikh Stan MD insulin glargine (Lantus) injection vial 25 Units, 25 Units, subcutaneous, BID, Prachi Cisneros MD insulin lispro (HumaLOG) injection 0-18 Units, 0-18 Units, subcutaneous, With meals & nightly, Prachi Cisneros MD, 10 Units at 05/16/25 1323 levETIRAcetam (Keppra) tablet 1,000 mg, 1,000 mg, oral, BID, Jairo Bean MD, 1,000 mg at 05/16/25 0824 levothyroxine (Synthroid, Levoxyl) tablet 75 mcg, 75 mcg, oral, Daily before breakfast, MD Justice, 75 mcg at 05/16/25 0518 metoprolol succinate XL (Toprol-XL) 24 hr tablet 50 mg, 50 mg, oral, Daily, Jairo Bean MD, 50 mg at 05/16/25 0824 nystatin (Mycostatin) cream, , Topical, BID, Shaikh Stan MD, Given at 05/16/25 1324 ondansetron ODT (Zofran-ODT) disintegrating tablet 4 mg, 4 mg, oral, q8h PRN OR ondansetron HCl(PF) (Zofran) injection 4 mg, 4 mg, intravenous, q6h PRN, Jairo Bean MD, 4 mg at 05/16/25 0539 oxyCODONE-acetaminophen (Percocet) 7.5-325 mg per tablet 1 tablet, 1 tablet, oral, q8h PRN, Shaikh Stan MD, 1 tablet at 05/16/25 1327 pregabalin (Lyrica) capsule 75 mg, 75 mg, oral, BID, Jairo Bean MD, 75 mg at 05/16/25 0619 QUEtiapine (SEROquel) tablet 800 mg, 800 mg, oral, Nightly, Shaikh Stan MD sennosides-docusate sodium (Gema-Colace) 8.6-50 mg per tablet 1 tablet, 1 tablet, oral, BID PRN, Jairo Bean MD Insert peripheral IV, , , Once AND Saline lock IV, , , Once AND sodium chloride flush 10 mL, 10 mL, intravenous, q8h PRN, Jairo Bean MD tiZANidine (Zanaflex) tablet 4 mg, 4 mg, oral, TID, Jairo Bean MD, 4 mg at 05/16/25 0824 [4] Allergies Allergen Reactions Codeine Other, Hives, Rash and GI intolerance Get very angry Other reaction(s): Aggressive Behavior hives Fentanyl GI intolerance, Hallucinations, Nausea And Vomiting and Other Other Reaction(s): Renal Failure Linezolid GI intolerance, Nausea And Vomiting and Other Other Reaction(s): Renal Failure Lorazepam Hallucinations and Other Other Reaction(s): Other (See Comments), Renal Failure Tramadol GI intolerance, Other, Hives, Rash and [...] and Other Acetaminophen Other Adhesive Tape-Silicones Itching Ibuprofen Other Kidney problems Latex Hives Nsaids (Non-Steroidal Anti-Inflammatory Drug) Unknown shuts my kidney's down Prochlorperazine Other Other Reaction(s): Other (See Comments) She reports Compazine made her feel anxious and grumpy She reports Compazine made her feel anxious and grumpy Iodinated Contrast Media Rash Propoxyphene GI intolerance and Nausea And Vomiting [5] Social History Tobacco Use Smoking status: Every Day Types: Cigarettes Smokeless tobacco: Never Vaping Use Vaping status: Never Used Substance Use Topics Alcohol use: Never Drug use: Never Cosigned by Preston Aguilar at 05/16/2025 3:39 PM EST Associated attestation - Preston Aguilar - 05/16/2025 3:39 PM EST By using the attestations below, the signing clinician agrees that I have read and verify that thedocumentation has been personally reviewed by me and ensure that the documentation accurately reflects the encounter. GC: I personally saw this patient on the day of the encounter, performed the mckinnon portion(s) of the service and participated in the management and confirm the resident's documentation. Please note there may be an additional personal documentation from me. Additional Comments: * Mary Lou Deluna CNP - 05/16/2025 9:36 AM ESTAssociated Order(s): IP CONSULT TO NEUROSURGERY NEUROSURGERY NOTE SUBJECTIVE: Chief complaint: Back pain and leg pain. History of present illness: Consultation referred by hospitalist team for back and leg pain. Patient is somewhat of an inconsistent historian at times. However, she notes longstanding pain in her low back for many years without clear precipitating event. Also notes pain into her left hip. She also notes pain down both legs in no particular dermatomal distribution. Back and leg pain are equally bothersome. Notes that she has issues from L1 down to S5. She also notes numbness in both legs in no particular dermatomal distribution. She does state that she was at a group home facility in December 2024 when she fell. She states that since then, she has had multiple other falls. She notes that she does ambulate short distances with a cane while in the house, though she often uses a wheelchair. She has been using a wheelchair for 2 years due to her history of falls. Notes bowel and bladder incontinence for the past 3 years. States that she will often just stand up and lose controlof her bowels and bladder. She denies urinary retention. She has previously done physical therapy as well as aquatic therapy and injections, all without lasting or substantial improvement. She currently follows with pain management in [place], [place]. Is on multiple medications for her symptoms, including nortriptyline, pregabalin, tizanidine, Percocet. She reports that pain management states they were going to do a procedure for her disc degeneration and nerve compression. When asked what procedure pain management was planning to do, she states that she is not certain, but that they were planning to refer her to neurosurgery. She did recently see a neurosurgeon in [place], [place]-Dr. Kumar. She states that he ordered her an MRI, though it is not scheduled until May and she feels that this is not soon enough. She notes that she was to previously have surgery on her back with Dr. Campa (?) years ago. She is not certain what surgery this was to have been. She notes that it was canceled on the day of surgeryas she had a wound on her back. She denies neck or arm pain, weakness, paresthesia. Of note, she does also have a history of sick sinus syndrome with a pacemaker. Review of systems: As in HPI. Notes blood glucose levels have been much better controlled with insulin pump, though not currentlycontrolled as she did not refill the pump recently. Chronically blind left eye. Medical History[1] Surgical History[2] Social History[3] Family History[4] OBJECTIVE: Medications: @MEDSINGROUPER@ Current Medications[5] Allergies: Allergies[6] Exam: Exam performed and reviewed, changes as below. Vitals reviewed: Temp: [37.1 ??C (98.8 ??F)-37.3 ??C (99.1 ??F)] 37.1 ??C (98.8 ??F) Heart Rate: [101-102] 102 Resp: [16-18] 16 BP: (160-172)/(88-97) 172/88 No intake/output data recorded. No intake/output data recorded. Constitutional: In no apparent distress. Chest: Chest expansion symmetrical. Respirations regular and nonlabored. Abdomen: Soft, nontender, nondistended. Extremities without edema. Skin warm and dry without pallor. Neuro: GCS 15/15. Attention and memory intact. No dysarthria or aphasia. Cranial Nerves: Conjugate gaze. PERRLA 4 mm. EOMI. No nystagmus. Facial sensation intact V1, V2, S0ikcwohctusd. Facial expression symmetrical bilaterally. Hearing intact to conversation. Uvula midline and palate elevates symmetrically. Trapezii symmetrical bilaterally. Tongue midline. Coordination: Finger to nose testing without dysmetria bilaterally. Sensation: Intact to light touch C5-T1, T2-T8. Decreased T8-S1 distally. Musculoskeletal: Right handed. Deltoid 4/5, biceps 4 -/5, triceps 4+/5, finger flexors 4 -/5, finger abductors 4+/5. Right hip flexion 2/5, left 1/5. Right knee flexion 4/5, left states unable. She is not able to dorsiflex and plantarflex her feet, though she is able to wiggle her toes bilaterally,left side greater than right. Partial left hallux amputation. Muscle tone without hyper or hypotonicity. Muscle bulk appropriate for age. Deep Tendon Reflexes: Biceps 1+ bilaterally. Brachioradialis 1+ bilaterally. Patellar unable to elicit. Babinski absent bilaterally. Labs: Admission on 05/16/2025 Component Date Value Ref Range Status Auto WBC 05/16/2025 15.37 (H) 4.00 - 10.60 10*3/uL Final RBC 05/16/2025 4.15 3.80 - 5.00 10*6/uL Final Hemoglobin 05/16/2025 12.7 12.0 - 15.0 g/dL Final Hematocrit 05/16/2025 37.7 36.0 - 45.0 % Final MCV 05/16/2025 90.8 82.0 - 98.0 fL Final MCH 05/16/2025 30.6 27.0 - 33.0 pg Final MCHC 05/16/2025 33.7 32.0 - 35.0 g/dL Final RDW 05/16/2025 13.2 11.5 - 15.0 % Final Platelets 05/16/2025 371 150 - 400 10*3/uL Final Glucose POC 05/16/2025 527 (HH) 70 - 105 mg/dL Final Glucose POC 05/16/2025 495 (H) 70 - 105 mg/dL Final Imaging: XR lumbar spine 2 or 3 views 09/23/2024 Narrative EXAMINATION: XR LUMBAR SPINE 2-3 VIEWS (STANDARD) [...] loss. Incidentally imaged abdominal structures are unremarkable. Impression Moderate degenerative changes. Workstation ID: [id number] Impression: Chronic low back pain with radiculopathy. Lumbar spondylosis. Chronic bowel and bladder incontinence. Frequent falls. Uncontrolled diabetes mellitus type 2. Class III obesity. Plan: She did reportedly have a CT lumbar spine completed at the outside hospital 05/15/2025 prior to transfer. Images are not available. Report indicates patency of the bony central spinal canal. No evidence of fracture. Adequate disc spaces. Endplate spurs. Multilevel facet degeneration with suspected disc herniation at L4 extending into the central canal and neuroforamen. Suspected diffuse disc bulge at L4-L5. Assessment of disc herniation limited with CT examination. Discussed with patient we will attempt to obtain an MRI of the thoracic spine- due to T8 thoracic level and bilateral lower extremity weakness-as well as an MRI of the lumbar spine given her reports of low back pain and leg pain. However, we will have to see if her pacemaker is MRI compatible first.If not, she will need to have a CT myelogram. She has had myelograms in the past. No diet or activity restrictions from a neurosurgery standpoint. No current plan for neurosurgical intervention-pending imaging workup. Would recommend holding her aspirin and Plavix in the interim. Being on aspirin and Plavix would prevent her from having a myelogram in the next several days. Acceptable for pharmacologic DVT prophylaxis. Pain control. Medical management per primary team. Plan discussed with patient, nursing, Dr. Barone, hospitalist team, physical and occupational therapy. Addendum 1740: Was subsequently informed earlier this afternoon by our MRI department that her pacemaker is MRI compatible, though she has an old abandoned pacemaker lead that is not MRI compatible. Thus, she will be unable to have an MRI. She will need to have a CT myelogram, though given her recent use of aspirin and Plavix this is not feasible at this time. Given that she also has some upper extremity weakness and difficulty with balance, I would obtain aCT myelogram of her cervical, thoracic, and lumbar spine. I did place these orders. They can be faxed wherever patient desires. This can be done as an outpatient. She will also need premedication as she has a iodinated contrast allergy. Will send to patient's home pharmacy. I think that it would be reasonable for her to follow-up with the neurosurgeon she is already established with in [place], [place], once her imaging workup is complete. Hospitalist team updated. [1] Past Medical History: Diagnosis Date Anxiety Bipolar 1 disorder ([facility]) Blind left eye Cardiac arrest ([facility]) 2019 Chronic back pain Chronic kidney disease Coronary artery disease Depression Diabetes mellitus ([facility]) with diabetic retinopathy and nephropathy Dyslipidemia Heart failure ([facility]) Hypertension Hypothyroidism Insomnia MRSA (methicillin resistant Staphylococcus aureus) 2014 Pacemaker Schizoaffective disorder ([facility]) Seizures ([facility]) SSS (sick sinus syndrome) ([facility]) Stroke ([facility]) Urinary incontinence [2] Past Surgical History: Procedure Laterality Date AMPUTATION FOOT / TOE hallux CARDIAC PACEMAKER PLACEMENT 2011, replaced with MRI compatible Meddtronic system at [facility] 03/30/2017 CHOLECYSTECTOMY HYSTERECTOMY TOE AMPUTATION [3] Social History Tobacco Use Smoking status: Every Day Types: Cigarettes Smokeless tobacco: Never Vaping Use Vaping status: Never Used Substance Use Topics Alcohol use: Never Drug use: Never [4] Family History Problem Relation Name Age of Onset COPD Mother Stroke Mother Heart failure Father Heart attack Father Diabetes Father [5] Current Facility-Administered Medications: alteplase (Cathflo Activase) injection 2 mg, 2 mg, intra-catheter, PRN, Shaikh Stan MD, 2 mg at 05/16/25 0825 atorvastatin (Lipitor) tablet 20 mg, 20 mg, oral, Nightly, Jairo Bean MD brexpiprazole (Rexulti) tablet 1 mg, 1 mg, oral, Daily, Shaikh Stan MD, 1 mg at 05/16/25 0825 citalopram (CeleXA) tablet 40 mg, 40 mg, oral, Daily, Shaikh Stan MD, 40 mg at 05/16/25 0824 glucose chewable tablet 24 g, 24 g, oral, q15 min PRN OR dextrose 50 % in water (D50W) syringe 25 g, 25 g, intravenous, q15 min PRN, Jairo Bean MD heparin (porcine) injection 5,000 Units, 5,000 Units, subcutaneous, q12h SAMEER, Jairo Bean MD, 5,000 Units at 05/16/25 0520 hydrOXYzine HCL (Atarax) tablet 50 mg, 50 mg, oral, q6h PRN, Shaikh Stan MD insulin glargine (Lantus) injection vial 25 Units, 25 Units, subcutaneous, Nightly, Jairo Bean MD, 25 Units at 05/16/25 0519 insulin lispro (HumaLOG) injection 0-10 Units, 0-10 Units, subcutaneous, TID with meals AND insulin lispro (HumaLOG) injection 0-8 Units, 0-8 Units, subcutaneous, Nightly, Jairo Bean MD levETIRAcetam (Keppra) tablet 1,000 mg, 1,000 mg, oral, BID, Jairo Bean MD, 1,000 mg at 05/16/25 0824 levothyroxine (Synthroid, Levoxyl) tablet 75 mcg, 75 mcg, oral, Daily before breakfast, MD Justice, 75 mcg at 05/16/25 0518 metoprolol succinate XL (Toprol-XL) 24 hr tablet 50 mg, 50 mg, oral, Daily, Jairo Bean MD, 50 mg at 05/16/25 0824 nortriptyline (Pamelor) capsule 25 mg, 25 mg, oral, Nightly, Shaikh Stan MD ondansetron ODT (Zofran-ODT) disintegrating tablet 4 mg, 4 mg, oral, q8h PRN OR ondansetron HCl(PF) (Zofran) injection 4 mg, 4 mg, intravenous, q6h PRN, Jairo Bean MD, 4 mg at 05/16/25 0539 oxyCODONE-acetaminophen (Percocet) 5-325 mg per tablet 1 tablet, 1 tablet, oral, q8h PRN, Jairo Bean MD, 1 tablet at 05/16/25 0518 paliperidone (Invega) 24 hr tablet 6 mg, 6 mg, oral, q AM, Shaikh Stan MD, 6 mg at 05/16/25 0824 pantoprazole (ProtoNix) EC tablet 40 mg, 40 mg, oral, Daily before breakfast, Shaikh Stan MD, 40mg at 05/16/25 0824 pregabalin (Lyrica) capsule 75 mg, 75 mg, oral, BID, Jairo Bean MD, 75 mg at 05/16/25 0619 QUEtiapine (SEROquel) tablet 400 mg, 400 mg, oral, Nightly, Jairo Bean MD sennosides-docusate sodium (Gema-Colace) 8.6-50 mg per tablet 1 tablet, 1 tablet, oral, BID PRN, Jairo Bean MD Insert peripheral IV, , , Once AND Saline lock IV, , , Once AND sodium chloride flush 10 mL, 10 mL, intravenous, q8h PRN, Jairo Bean MD tiZANidine (Zanaflex) tablet 4 mg, 4 mg, oral, TID, Jairo Bean MD, 4 mg at 05/16/25 0824 [6] Allergies Allergen Reactions Codeine Other, Hives, Rash and GI intolerance Get very angry Other reaction(s): Aggressive Behavior hives Fentanyl GI intolerance, Hallucinations, Nausea And Vomiting and Other Other Reaction(s): Renal Failure Linezolid GI intolerance, Nausea And Vomiting and Other Other Reaction(s): Renal Failure Lorazepam Hallucinations and Other Other Reaction(s): Other (See Comments), Renal Failure Tramadol GI intolerance, Other, Hives, Rash and [...] Propoxyphene GI intolerance and Nausea And Vomiting documented in this encounter Nursing Notes * Radha Devlin RN - 05/17/2025 6:30 AM EST Pt refuses to get OOB. Bedpan offered and pt stated I don't have to pee right now. Tree Tapping Laborer explained to pt the need for a bladder scan, pt refused @ this time and stated I'm fine. Pts brief is dryand denies any needs @ this time. documented in this encounter Miscellaneous Notes * Care Plan - Radha Devlin RN - 05/16/2025 10:56 PM EST The patient is Moderately Stable - Low risk of patient condition declining or worsening The patient's goals for the shift include rest The clinical goals for the shift include VSS, safety * Significant Event - Shawna Villela RN - 05/16/2025 4:17 PM EST 05/16/25 1613 Admission Assessment Questions Verify insurance with patient Yes Do you understand medical disease or what brought you into the hospital? Yes Who is your current PCP? Kyle Lopez Can I schedule a follow up appointment for you at the time of discharge? No Does patient qualify for Complex Care Management Enrollment? No Do you understand why you are taking your current medications? Yes Are you taking your medications as prescribed? Yes Did patient provide teach back? No Pharmacy Bedside Delivery Status Interested Does the patient have a patient case coordinator assigned to them through their insurance? No Living Arrangement (Current/Prior to Hospitalization) Home self care (Lives at home with daughter) Does the patient have history of HHC or SNF? Yes Assistive Device Cane;Wheelchair Patient's goal for discharge Home with hhc vs SNF Was patient reminded that goal for discharge is 11am? No Does the patient have transportation at discharge? No (Will need ambulance transport) Type of Residence Private residence;nursing home facility Is PT/OT appropriate? Yes Is PT/OT ordered? Yes Is SW consult appropriate? Yes Is SW consult ordered? Yes Do you understand the benefits of MyChart? Yes Were you able to send link and activate MyChart? No * Care Plan - Shawna Villela RN - 05/16/2025 10:21 AM EST Daily Case Management Update Multidisciplinary rounds have been completed. Barriers to Discharge: Patient presented from [facility] with lower extremity weakness and numbness. MRI brain pending. Neurosurgery consult pending recs. PT/OT ordered. Diet: Dietary Orders (From admission, onward) Start Ordered 05/16/25 0322 Regular Diet Heart Healthy/HTN, CABG,Stroke, (2gNA, low fat, low cholesterol) Diet effective now Question Answer Comment Room Service? Yes Fat restriction: Heart Healthy/HTN, CABG,Stroke, (2gNA, low fat, low cholesterol) 05/16/25 0321 Physician Expected Discharge Date: 05/18/2025 Discharge Delays: PT Six Click Score: OT Six Click Score: PT Recommendations: OT Recommendations: Is expected discharge disposition appropriate for patient?: Yes New Consults: Consult Orders (From admission, onward) Start Ordered 05/16/25 0944 Inpatient consult to Endocrinology Once Specialty: Endocrinology Provider: (Not yet assigned) Question Answer Comment [facility] ENDOCRINOLOGY TEAM Reason for Consult? Uses Insulin pump, poorly controlled T2 DM. Did not come with Pump Level of Consultation Consultation and Management 05/16/25 0944 05/16/25 0424 Inpatient consult to Neurosurgery Once Specialty: Neurosurgery Provider: (Not yet assigned) Question Answer Comment [facility] NEUROSURGERY TEAM Reason for Consult? Lumbar disck disease with lower ext weakness Level of Consultation Consultation and Management 05/16/25 0423 Ancillary Consults (From admission, onward) Start Ordered 12/23/25 0322 Inpatient Consult to Social Work Once Provider: (Not yet assigned) Question Answer Comment Select all services needed for the patient Other Other: EvaL and prep for d/c 05/16/25320 Therapy Orders (From admission, onward) Start Ordered 05/16/25321 PT eval and treat Until therapy completed Question: Reason for PT? Answer: Eval and treat 05/16/2532005/16/25321 OT eval and treat Until therapy completed Question: Reason for OT? Answer: Eval and treat 05/16/25320 * Assessment & Plan Note - Jairo Bean MD - 05/16/2025 4:48 AM EST Associated Problem(s): Lower extremity weakness -Same measures as above - Patient will need an MRI of the brain - Neurosurgery consultation SEKOU * Assessment & Plan Note - Jairo Bean MD - 05/16/2025 4:48 AM EST Associated Problem(s): Unable to ambulate -Fall precaution very important - Support during ambulation or even keep patient bed confined - PT/OT - Social service for discharge planning when appropriate * Assessment & Plan Note - Jairo Bean MD - 05/16/2025 4:48 AM EST Associated Problem(s): Fall -Send measures as above * Assessment & Plan Note - Jairo Bean MD - 05/16/2025 4:48 AM EST Associated Problem(s): Uncontrolled type 2 diabetes mellitus with hyperglycemia ([facility]) -Monitor patient's blood sugar ACHS - Use regular insulin for sliding scale coverage - Commence patient on glargine 25 mg every 12 hours - If blood sugar does not improve may use insulin drip - Obtain A1c - Resume and reconcile home medications as appropriate * Assessment & Plan Note - Jairo Bean MD - 05/16/2025 4:48 AM EST Associated Problem(s): Degeneration of lumbar or lumbosacral intervertebral disc -Pain control - May need to place patient on steroids, muscle relaxers, as well as pain medication. - These have already been reconciled including Lyrica, tizanidine, Seroquel and Percocet * Assessment & Plan Note - Jairo Bean MD - 05/16/2025 4:48 AM EST Associated Problem(s): CAD (coronary artery disease) -History of CAD - Status post SC - Resume aspirin, atorvastatin, metoprolol - Placed on telemetry * Assessment & Plan Note - Jairo Bean MD - 05/16/2025 4:48 AM EST Associated Problem(s): Hx of myocardial infarction -Old, currently no chest pain - Will monitor patient's cardiac status DVT prophylaxis using VTE protocols per [facility] GI protection Protonix Monitor labs and correct all abnormalities Placed on sliding scale Consult neurosurgery I discussed the plan of care with the patient and her bedside RN and there seems to be agreement. documented in this encounter Plan of Treatment DateTypeDepartmentCare Team (Latest Contact Info)Pwugitiuaky62/12/2026 8:30 AM ESTAppointment [facility] [address] [place] [phone] Radiology, RadiologistMD [address] [place] [id number] 06/05/2025 9:30 AM ESTAppointment [facility] CT Imaging [address] [place] [address] 06/05/2025 10:00 AM ESTAppointment [facility] CT Imaging [address] [place] [address] 06/05/2025 10:30 AM ESTAppointment [facility] CT Imaging [address] [place] [address] NameTypePriorityAssociated DiagnosesOrder ScheduleIR FL myelogram entire spine ImagingRoutine Weakness of lower extremity, unspecified laterality Fall, initial encounter Arm weakness Lumbar spondylosis Chronic low back pain with bilateral sciatica, unspecified back pain laterality Expected: 05/16/2025, Expires: 05/16/2026FL cervical spine myelogramImaging Routine Weakness of lower extremity, unspecified laterality Fall, initial encounter Arm weakness Expected: 05/16/2025, Expires: 05/16/2026T cervical spine w IV contrastImaging Routine Weakness of lower extremity, unspecified laterality Fall, initial encounter Arm weakness Expected: 05/16/2025, Expires: 05/16/2026T thoracic spine w IV contrastImaging Routine Fall, initial encounter Chronic low back pain with bilateral sciatica, unspecified back pain laterality Expected: 05/16/2025, Expires: 05/16/2026T lumbar spine w IV contrastImaging Routine Weakness of lower extremity, unspecified laterality Fall, initial encounter Lumbar spondylosis Chronic low back pain with bilateral sciatica, unspecified back pain laterality Expected: 05/16/2025, Expires: 05/16/2026documented as of this encounter Procedures Procedure NamePriorityDate/TimeAssociated DiagnosisCommentsPOCT GLUCOSE METER UNSOLICITED PPDLRCZMlukkxy79/24/2025 11:13 AM EST POCT GLUCOSE METER UNSOLICITED LQHKITXFxcjuac10/24/2025 7:07 AM EST CBC WITH AUTO ITYNAFKILYZNRttbfia73/24/2025 6:28 AM EST CBC AND ZXHQORNRQGLUSdtcctq11/24/2025 6:28 AM EST BASIC METABOLIC SQDJEPgdaorb50/24/2025 6:28 AM EST POCT GLUCOSE METER UNSOLICITED DVWHGPNGzwzbip37/23/2025 8:39 PM EST POCT GLUCOSE METER UNSOLICITED HJLYTPTBupgewq36/23/2025 4:26 PM EST POCT GLUCOSE METER UNSOLICITED CXYJXRDHyhtdar37/23/2025 11:29 AM EST BLOOD GAS, UOHGSOTEYD26/23/2025 10:41 AM EST BETA VIICOXGQKNRDXVBSLJN60/23/2025 10:41 AM EST BASIC METABOLIC CWJYGNRIZ54/23/2025 10:41 AM EST POCT GLUCOSE METER UNSOLICITED VYRVSXPImpieng10/23/2025 9:35 AM EST POCT GLUCOSE METER UNSOLICITED GQTBIRRJugihif16/23/2025 7:11 AM EST TWSByvsqay42/23/2025 6:08 AM EST HEMOGLOBIN P0QAzo-Ym39/23/2025 6:08 AM EST POCT GLUCOSE METER UNSOLICITED BYBTIFBRokxjke53/23/2025 4:11 AM EST documented in this encounter Results * (ABNORMAL) POCT glucose meter (05/17/2025 11:13 AM EST)ComponentValueRef Range Test MethodAnalysis TimePerformed AtPathologist SignatureGlucose NQX448(H)70 - 105 mg/dL05/17/2025 11:24 AM ESTEAST[facility] ([facility])Comment: Specimen (Source)Anatomical Location / LateralityCollection Method / Volume Collection TimeReceived TimeBloodCapillary blood specimen / Kininbb3305/17/2025 11:13 AM EST05/17/2025 11:24 AM EST Narrative [facility] ([place]) - 05/17/2025 11:24 AM EST Waived Testing in the ED is performed under the ED CLIA certificate #[id number]. Authorizing ProviderResult TypeResult StatusShaikh Stan TOBAR BLOOD ORDERABLES Final ResultPerforming OrganizationAddressCity/State/ZIP CodePhone Number [facility] ([facility]) [address] [place] [address] * (ABNORMAL) POCT glucose meter (05/17/2025 7:07 AM EST)ComponentValueRef Range Test MethodAnalysis TimePerformed AtPathologist SignatureGlucose UED876(H)70 - 105 mg/dL05/17/2025 7:18 AM [facility] ([facility])Comment:[id number] Specimen (Source)Anatomical Location / LateralityCollection Method / Volume Collection TimeReceived TimeBloodCapillary blood specimen / Jholhly4205/17/2025 7:07 AM EST05/17/2025 7:18 AM EST Narrative [facility] ([facility]) - 05/17/2025 7:18 AM EST Waived Testing in the ED is performed under the ED CLIA certificate #[id number]. Authorizing ProviderResult TypeResult StatusShaikh Stan TOBAR BLOOD ORDERABLES Final ResultPerforming OrganizationAddressCity/State/ZIP CodePhone Number [facility] ([facility]) [address] [place] [address] * (ABNORMAL) CBC auto differential (05/17/2025 6:28 AM EST)ComponentValueRef RangeTest MethodAnalysis TimePerformed AtPathologist SignatureAuto WBC11.60(H) 4.00 - 10.60 10*3/uL05/17/2025 7:04 AM [facility] ([facility])RBC3.21(L) 3.80 - 5.00 10*6/uL05/17/2025 7:04 AM [facility] ([facility])Hemoglobin 9.7(L)12.0 - 15.0 g/dL05/17/2025 7:04 AM [facility] ([facility]) Wsmeuhqxvj42.0(L)36.0 - 45.0 %05/17/2025 7:04 AM [facility] ([facility]) MCV90.382.0 - 98.0 fL05/17/2025 7:04 AM [facility] ([facility])MCH30.2 27.0 - 33.0 pg05/17/2025 7:04 AM [facility] ([facility])MCHC33.432.0 - 35.0 g/dL05/17/2025 7:04 AM [facility] ([facility])RDW13.211.5 - 15.0 % 05/17/2025 7:04 AM [facility] ([facility])Neutrophils %70.340.0 - 72.0 % 05/17/2025 7:04 AM [facility] ([facility])Lymphocytes %22.720.0 - 45.0 % 05/17/2025 7:04 AM [facility] ([facility])Monocytes %5.55.0 - 12.0 % 05/17/2025 7:04 AM [facility] ([facility])Eosinophils %0.90.0 - 6.0 % 05/17/2025 7:04 AM [facility] ([facility])Basophils %0.30.0 - 1.0 % 05/17/2025 7:04 AM [facility] ([facility])Neutrophils Absolute8.15(H) 1.60 - 7.60 10*3/uL05/17/2025 7:04 AM [facility] ([facility])Lymphocytes Absolute2.631.20 - 4.00 10*3/uL05/17/2025 7:04 AM [facility] ([facility])Monocytes Absolute0.640.10 - 1.00 10*3/uL05/17/2025 7:04 AM [facility] ([facility])Eosinophils Absolute0.100.00 - 0.50 10*3/uL05/17/2025 7:04 AM [facility] ([facility])Basophils Absolute0.040.00 - 0.20 10*3/uL 05/17/2025 7:04 AM [facility] ([facility])Fawdtqmog218337 - 400 10*3/uL 05/17/2025 7:04 AM [facility] ([facility])nRBC %0.00 %05/17/2025 7:04 AM [facility] ([facility])Immature Granulocytes %0.30.0 - 1.0 %05/17/2025 7:04 AM [facility] ([facility])Immature Granulocytes Absolute0.040.00 - 0.20 10*3/uL05/17/2025 7:04 AM [facility] ([facility])Specimen (Source) Anatomical Location / LateralityCollection Method / VolumeCollection Time Received TimeBloodBlood sample taken from central line / UnknownExisting Catheter / Tcaqsdy4505/17/2025 6:28 AM EST05/17/2025 6:40 AM EST Narrative Authorizing ProviderResult TypeResult StatusShaikh Stan TOBAR BLOOD ORDERABLES Final ResultPerforming OrganizationAddressCity/State/ZIP CodePhone Number [facility] ([facility]) [address] [place] [address] * (ABNORMAL) Basic metabolic panel (05/17/2025 6:28 AM EST)ComponentValueRef RangeTest MethodAnalysis TimePerformed AtPathologist RdmwcrnbdAsfdeq907(L)136 - 145 mmol/L107/18/2024 7:03 AM [facility] ([facility])Potassium4.63.5 - 5.1 mmol/L107/18/2024 7:03 AM [facility] ([facility])Ferwgnyr15667 - 107 mmol/L107/18/2024 7:03 AM [facility] ([facility])KI05751 - 31 mmol/L 05/17/2025 7:03 AM [facility] ([facility])BUN42(H)7 - 25 mg/dL05/17/2025 7:03 AM [facility] ([facility])Creatinine1.76(H)0.60 - 1.20 mg/dL 05/17/2025 7:03 AM [facility] ([facility])Nnapbqs636(H)70 - 100 mg/dL 05/17/2025 7:03 AM [facility] ([facility])Calcium8.3(L)8.6 - 10.3 mg/dL 05/17/2025 7:03 AM [facility] ([facility])Anion Gap97 - 20 mmol/L 05/17/2025 7:03 AM [facility] ([facility])eGFR35.3(L)>60.0 mL/min/1.73m* 7:03 AM [facility] ([facility])Comment:[facility]???s estimated glomerular filtration rate (eGFR) will [...] not disproportionately affect any one group of individuals.BUN/Creatinine Ratio23.9107/18/2024 7:03 AM [facility] ([facility])Specimen (Source)Anatomical Location / LateralityCollection Method / VolumeCollection TimeReceived TimeBloodBlood sample taken from central line / UnknownExisting Catheter / Mfqmafh7005/17/2025 6:28 AM EST05/17/2025 6:40 AM EST Narrative Authorizing ProviderResult TypeResult StatusShaikh Stan TOBAR BLOOD ORDERABLES Final ResultPerforming OrganizationAddressCity/State/ZIP CodePhone Number [facility] ([facility]) [address] [place] [address] * (ABNORMAL) POCT glucose meter (05/16/2025 8:39 PM EST)ComponentValueRef Range Test MethodAnalysis TimePerformed AtPathologist SignatureGlucose KEN688(H)70 - 105 mg/dL05/16/2025 9:04 PM [facility] ([facility])Comment:[email or web address] Specimen (Source)Anatomical Location / LateralityCollection Method / Volume Collection TimeReceived TimeBloodCapillary blood specimen / Dpvzdfq0705/16/2025 8:39 PM EST05/16/2025 9:03 PM EST Narrative [facility] ([facility]) - 05/16/2025 9:04 PM EST Waived Testing in the ED is performed under the ED CLIA certificate #[id number]. Authorizing ProviderResult TypeResult Kristel Pierce MDLAB BLOOD ORDERABLES Final ResultPerforming OrganizationAddressCity/State/ZIP CodePhone Number [facility]) [address] [place] [address] * (ABNORMAL) POCT glucose meter (05/16/2025 4:26 PM EST)ComponentValueRef Range Test MethodAnalysis TimePerformed AtPathologist SignatureGlucose FNS545(H)70 - 105 mg/dL05/16/2025 4:44 PM [facility] ([facility])Comment:cgammoh Specimen (Source)Anatomical Location / LateralityCollection Method / Volume Collection TimeReceived TimeBloodCapillary blood specimen / Urlieke3105/16/2025 4:26 PM EST05/16/2025 4:44 PM EST Narrative [facility] ([facility]) - 05/16/2025 4:44 PM EST Waived Testing in the ED is performed under the ED CLIA certificate #[id number]. Authorizing ProviderResult TypeResult Kristel Pierce MDLAB BLOOD ORDERABLES Final ResultPerforming OrganizationAddressCity/State/ZIP CodePhone Number [facility]) [address] [place] [address] * (ABNORMAL) POCT glucose meter (05/16/2025 11:29 AM EST)ComponentValueRef Range Test MethodAnalysis TimePerformed AtPathologist SignatureGlucose OZS623(H)70 - 105 mg/dL05/16/2025 11:41 AM [facility] ([facility])Comment:cgammoh Specimen (Source)Anatomical Location / LateralityCollection Method / Volume Collection TimeReceived TimeBloodCapillary blood specimen / Ufljmzi9305/16/2025 11:29 AM EST05/16/2025 11:41 AM EST Narrative [facility] ([facility]) - 05/16/2025 11:41 AM EST Waived Testing in the ED is performed under the ED CLIA certificate #[id number]. Authorizing ProviderResult TypeResult StatusShaikh Stan STEVENSLAB BLOOD ORDERABLES Final ResultPerforming OrganizationAddressCity/State/ZIP CodePhone Number [facility] ([facility]) [address] [place] [address] * Blood Gas, Venous (05/16/2025 10:41 AM EST)ComponentValueRef RangeTest Method Analysis TimePerformed AtPathologist SignaturepH, Ven7.347.31 - 7.41107/17/2024 11:04 AM [facility] RESPIRATORY THERAPYpCO2, Yyo3815 - 50 mmHg05/16/2025 11:04 AM [facility] RESPIRATORY THERAPYpO2, Uch3379 - 45 mmHg05/16/2025 11:04 AM [facility] RESPIRATORY THERAPYO2 Sat, Ven65.665.0 - 75.0 %05/16/2025 11:04 AM [facility] RESPIRATORY THERAPYHCO3, Qwcmkn85.7mmol/L107/17/2024 11:04 AM [facility] RESPIRATORY THERAPYOxyhemoglobin, Okdmbx40.5%05/16/2025 11:04 AM [facility] RESPIRATORY THERAPYpH Venous Temp Adjusted7.347.31 - 7.41107/17/2024 11:04 AM [facility] RESPIRATORY THERAPYpCO2 Venous Temp Ysqigtpj8948 - 50 mmHg05/16/2025 11:04 AM [facility] RESPIRATORY THERAPYpO2 Venous Temp Qcxkzhum0738 - 45 mmHg 05/16/2025 11:04 AM [facility] RESPIRATORY DFHEODAUztjhhakfrp87.0??05/16/2025 11:04 AM [facility] RESPIRATORY THERAPYSpecimen (Source)Anatomical Location / LateralityCollection Method / VolumeCollection TimeReceived TimeBloodVenous blood specimen / UnknownExisting Catheter / Cznwzwt6305/16/2025 10:41 AM EST 05/16/2025 11:01 AM EST Narrative Authorizing ProviderResult TypeResult StatusJofariba Ortez BLOOD ORDERABLESFinal ResultPerforming OrganizationAddressCity/State/ZIP CodePhone Number [facility] RESPIRATORY THERAPY [address] [place] [address], * Beta Hydroxybutyrate (05/16/2025 10:41 AM EST)ComponentValueRef RangeTest MethodAnalysis TimePerformed AtPathologist SignatureBeta-Hydroxybutyrate0.10 0.02 - 0.27 mmol/L107/17/2024 12:43 PM [facility] ([facility])Specimen (Source)Anatomical Location / LateralityCollection Method / VolumeCollection TimeReceived TimeBloodVenous blood specimen / UnknownExisting Catheter / Okdruip2305/16/2025 10:41 AM EST05/16/2025 11:23 AM EST Narrative Authorizing ProviderResult TypeResult StatusPreston Ortez BLOOD ORDERABLESFinal ResultPerforming OrganizationAddressCity/State/ZIP CodePhone Number [facility] ([facility]) [address] [place] [address] * (ABNORMAL) Basic metabolic panel (05/16/2025 10:41 AM EST)ComponentValueRef RangeTest MethodAnalysis TimePerformed AtPathologist KgfjlfytjGtfken106(L)136 - 145 mmol/L107/17/2024 12:43 PM [facility] ([facility])Potassium5.03.5 - 5.1 mmol/L107/17/2024 12:43 PM [facility] ([facility])Xoprqqgq2828 - 107 mmol/L107/17/2024 12:43 PM [facility] ([facility])ZO50793 - 31 mmol/L 05/16/2025 12:43 PM [facility] ([facility])BUN31(H)7 - 25 mg/dL 05/16/2025 12:43 PM [facility] ([facility])Creatinine1.42(H)0.60 - 1.20 mg/dL05/16/2025 12:43 PM [facility] ([facility])Zqnldln742(H)70 - 100 mg/dL05/16/2025 12:43 PM [facility] ([facility])Calcium8.98.6 - 10.3 mg/dL05/16/2025 12:43 PM [facility] ([facility])Anion Emq582 - 20 mmol/L 05/16/2025 12:43 PM [facility] ([facility])eGFR45.6(L)>60.0 mL/min/1.73m* 12:43 PM [facility] ([facility])Comment:[facility]???s estimated glomerular filtration rate (eGFR) will [...] not disproportionately affect any one group of individuals.BUN/Creatinine Ratio21.8107/17/2024 12:43 PM [facility])Specimen (Source)Anatomical Location / LateralityCollection Method / VolumeCollection TimeReceived TimeBloodVenous blood specimen / Unknown Existing Catheter / Qdvmbhj9605/16/2025 10:41 AM EST05/16/2025 11:23 AM EST Narrative Authorizing ProviderResult TypeResult StatusPreston Ortez BLOOD ORDERABLESFinal ResultPerforming OrganizationAddressCity/State/ZIP CodePhone Number [facility]) [address] [place] [address] * (ABNORMAL) POCT glucose meter (05/16/2025 9:35 AM EST)ComponentValueRef Range Test MethodAnalysis TimePerformed AtPathologist SignatureGlucose CSL489(H)70 - 105 mg/dL05/16/2025 9:47 AM [facility])Comment:elacumsky Specimen (Source)Anatomical Location / LateralityCollection Method / Volume Collection TimeReceived TimeBloodCapillary blood specimen / Aaxmtqg5205/16/2025 9:35 AM EST05/16/2025 9:47 AM EST Narrative [facility]) - 05/16/2025 9:47 AM EST Waived Testing in the ED is performed under the ED CLIA certificate #[id number]. Authorizing ProviderResult TypeResult StatusShaikh Stan TOBAR BLOOD ORDERABLES Final ResultPerforming OrganizationAddressCity/State/ZIP CodePhone Number [facility]) [address] [place] [address] * (ABNORMAL) POCT glucose meter (05/16/2025 7:11 AM EST)ComponentValueRef Range Test MethodAnalysis TimePerformed AtPathologist SignatureGlucose DCM646(H)70 - 105 mg/dL05/16/2025 8:50 AM [facility] ([facility])Comment:elacumsky Specimen (Source)Anatomical Location / LateralityCollection Method / Volume Collection TimeReceived TimeBloodCapillary blood specimen / Julmfuz3105/16/2025 7:11 AM EST05/16/2025 8:50 AM EST Narrative [facility] ([facility]) - 05/16/2025 8:50 AM EST Waived Testing in the ED is performed under the ED CLIA certificate #[id number]. Authorizing ProviderResult TypeResult StatusShaikh Stan [facility] BLO[facility]ABLES Final ResultPerforming OrganizationAddressCity/State/ZIP CodePhone Number [facility]) [address] [place] [address] * (ABNORMAL) Hemoglobin A1c (05/16/2025 6:08 AM EST)ComponentValueRef RangeTest MethodAnalysis TimePerformed AtPathologist SignatureHemoglobin A1C9.0(H)4.0 - 6.0 %05/16/2025 2:50 PM [facility] ([facility])Estimated Average Glucose 212mg/dL05/16/2025 2:50 PM [facility] ([facility])Specimen (Source) Anatomical Location / LateralityCollection Method / VolumeCollection Time Received TimeBloodVenous blood specimen / UnknownExisting Catheter / Unknown 05/16/2025 6:08 AM EST05/16/2025 6:27 AM EST Narrative Authorizing ProviderResult TypeResult StatusPreston Ortez BLOOD ORDERABLESFinal ResultPerforming OrganizationAddressCity/State/ZIP CodePhone Number [facility]) [address] [place] [address] * (ABNORMAL) CBC (05/16/2025 6:08 AM EST)ComponentValueRef RangeTest Method Analysis TimePerformed AtPathologist SignatureAuto WBC15.37(H)4.00 - 10.60 10*3/uL05/16/2025 6:42 AM [facility])RBC4.153.80 - 5.00 10*6/uL05/16/2025 6:42 AM [facility] ([facility])Asxcyltbcj68.712.0 - 15.0 g/dL05/16/2025 6:42 AM [facility] ([facility])Ygkwplvnaa76.736.0 - 45.0 %05/16/2025 6:42 AM [facility] ([facility])MCV90.882.0 - 98.0 fL 05/16/2025 6:42 AM [facility] ([facility])MCH30.627.0 - 33.0 pg 05/16/2025 6:42 AM [facility] ([facility])MCHC33.732.0 - 35.0 g/dL 05/16/2025 6:42 AM [facility] ([facility])RDW13.211.5 - 15.0 %05/16/2025 6:42 AM [facility])Cvizrkntu993343 - 400 10*3/uL05/16/2025 6:42 AM [facility] ([facility])Specimen (Source)Anatomical Location / LateralityCollection Method / VolumeCollection TimeReceived TimeBloodVenous blood specimen / UnknownExisting Catheter / Eaawbsx7005/16/2025 6:08 AM EST 05/16/2025 6:27 AM EST Narrative Authorizing ProviderResult TypeResult StatusBonaventure Vikas [facility] BLOOD ORDERABLESFinal ResultPerforming OrganizationAddressCity/State/ZIP CodePhone Number [facility]) [address] [place], [place] [id number] * (ABNORMAL) POCT glucose meter (05/16/2025 4:11 AM EST)ComponentValueRef Range Test MethodAnalysis TimePerformed AtPathologist SignatureGlucose SJZ010(HH)70 - 105 mg/dL05/16/2025 6:23 AM [facility])Comment:hdavid2 Specimen (Source)Anatomical Location / LateralityCollection Method / Volume Collection TimeReceived TimeBloodCapillary blood specimen / Zmjodzy5805/16/2025 4:11 AM EST05/16/2025 6:23 AM EST Narrative [facility]) - 05/16/2025 6:23 AM EST Waived Testing in the ED is performed under the ED CLIA certificate #[id number]. Authorizing ProviderResult TypeResult StatusBonaventure Vikas TOBAR BLOOD ORDERABLESFinal ResultPerforming OrganizationAddressCity/State/ZIP CodePhone Number [facility] ([facility]) [address] [place] [address] documented in this encounter Visit Diagnoses Diagnosis Inability to ambulate due to hip- Primary Inability to ambulate due to hip Weakness of lower extremity, unspecified laterality Fall, initial encounter Arm weakness Other musculoskeletal symptoms referable to limbs Lumbar spondylosis Lumbosacral spondylosis without myelopathy Chronic low back pain with bilateral sciatica, unspecified back pain laterality Contrast media allergy Allergy to radiographic dye Acquired hypothyroidism Unspecified hypothyroidism Coronary artery disease involving lummi coronary artery of lummi heart without angina pectoris Lower extremity weakness Unable to ambulate Uncontrolled type 2 diabetes mellitus with hyperglycemia ([facility]) CAD (coronary artery disease) Coronary atherosclerosis of unspecified type of vessel, lummi or graft Hx of myocardial infarction Degeneration of lumbar or lumbosacral intervertebral disc Fall Unspecified fall documented in this encounter Admitting Diagnoses Diagnosis Inability to ambulate due to hip documented in this encounter Administered Medications Medication OrderMAR ActionAction DateDoseRateSite alteplase (Cathflo Activase) injection 2 mg 2 mg, intra-catheter, As needed, line care, Starting on Thu05/16/25 at 0752, For 99 days, For occluded catheter ports. Instill 2 mg (2 mL) into each port, and retain for 0.5 - 2 hours. May repeat ifcatheter remains occluded. Dilute each 2 mg vial with 2.2 mL sterile water to give 1 mg/mL final concentration. Swirl gently to mix; do not shake. BUD: 8 hours at room temp. Given05/16/2025 8:25 AM EST2 mg atorvastatin (Lipitor) tablet 20 mg 20 mg, oral, Nightly, First dose on Thu05/16/25 at 2200, For 99 days Given05/16/2025 9:35 PM EST20 mg brexpiprazole (Rexulti) tablet 1 mg 1 mg, oral, Daily, First dose on Thu05/16/25 at 1000, For 99 days Given05/16/2025 8:25 AM EST1 mg citalopram (CeleXA) tablet 40 mg 40 mg, oral, Daily, First dose on Thu05/16/25 at 1000, For 99 days Given05/16/2025 8:24 AM EST40 mg dextrose 50 % in water (D50W) syringe 25 g 25 g, intravenous, Every 15 min PRN, capillary blood glucose < 70 mg/dL and patient unable to take oral and has IV access, Starting on Thu05/16/25 at 0321, For 99 days, - Recheck blood glucose 5 minutes after dextrose administration. - Repeat treatment as ordered until blood glucose is greater than or equal to 80 mg/dL. - Provide a snack/meal within 1 hour after correction of hypoglycemia if not NPO. - If patient NPO or on enteral tube feeds, contact physician for potential additional interventions(s) (i.e. 5% or 10% dextrose IV fluids or tube feeding bolus) diazePAM (Valium) tablet 5 mg 5 mg, oral, Daily PRN, FOR CLAUSTROPHOBIA R/T MRI, GIVE 1 TAB 30-60 MIN BEFORE, REPEAT IF NEEDED., Starting on Thu05/16/25 at 0941, For 2 doses glucose chewable tablet 24 g 24 g, oral, Every 15 min PRN, capillary blood glucose < 70 mg/dL and patient alert and eating, Starting on Thu05/16/25 at 0321, For 99 days, - Recheck blood glucose 5 minutes after dextrose administration. - Repeat treatment as ordered until blood glucose is greater than or equal to 80 mg/dL. -Provide a snack/meal within 1 hour after correction of hypoglycemia if not NPO. - If patient NPO oron enteral tube feeds, contact physician for potential additional interventions(s) (i.e. 5% or 10% dextrose IV fluids or tube feeding bolus) heparin (porcine) injection 5,000 Units 5,000 Units, subcutaneous, Every 12 hours scheduled, First dose on Thu05/16/25 at 0330, For 99 days, Indications: deep vein thrombosis prevention Indications:deep vein thrombosis ohvittmrdeNoeun14/24/2025 9:20 AM EST5,000 UnitsLeft Lower MgwcgvwGinmt52/23/2025 9:35 PM EST5,000 UnitsLeft Lower Abdomen Given05/16/2025 11:16 AM EST5,000 UnitsLeft Lower Abdomen heparin lock flush 100 unit/mL syringe 500 Units 500 Units, intra-catheter, Once as needed, line care, Starting on Thu05/17/25 at 1052, For 99 days Given05/17/2025 1:40 PM UUW210 Units hydrOXYzine pamoate (Vistaril) capsule 100 mg 100 mg, oral, Nightly PRN, anxiety, Starting on Thu05/16/25 at 1128, For 99 days insulin glargine (Lantus) injection vial 25 Units 25 Units, subcutaneous, Nightly, First dose on Thu05/16/25 at 0430, For 99 days Given05/16/2025 5:19 AM EST25 UnitsLeft Lower Abdomen insulin glargine (Lantus) injection vial 25 Units 25 Units, subcutaneous, 2 times daily, First dose (after last modification) on Thu05/16/25 at 2200, For 193 doses Given05/16/2025 9:34 PM EST25 UnitsLeft Lower Abdomen insulin glargine (Lantus) injection vial 30 Units 30 Units, subcutaneous, 2 times daily, First dose (after last modification) on Thu05/16/25 at 1000, For 97 days Given05/16/2025 11:09 AM EST30 UnitsLeft Upper Arm (Back) insulin glargine (Lantus) injection vial 30 Units 30 Units, subcutaneous, 2 times daily, First dose (after last modification) on Thu05/17/25 at 1000, For 192 doses Given05/17/2025 10:59 AM EST30 UnitsLeft Upper Abdomen insulin lispro (HumaLOG) injection 0-18 Units 0-18 Units, subcutaneous, 4 times daily with meals and nightly, First dose on Thu05/16/25 at 1200,For 99 days, Carb Ratio - Breakfast (grams of carbs for each unit of insulin): 5, Carb Ratio - Lunch (grams of carbs for each unit of insulin): 5, Carb Ratio - Dinner (grams of carbs for each unit ofinsulin): 5, Carb Ratio - Bedtime Snack (grams of carbs for each unit of insulin): 5, BG < 150 instructions: No additional insulin. If BG less than 70, implement hypoglycemia orders., BG 151-200: 2, BG 201-250: 4, BG 251-300: 6, BG 301-350: 8, BG 351-400: 10, BG greater than 400 instructions: Hold Insulin Call Physician, Bedtime BG less than 200 instructions: No additional insulin, Bedtime BG 201-250: 2, Bedtime BG 251-300: 4, Bedtime GL 301-350: 6, Bedtime GL 351- 400: 8 Given05/17/2025 9:28 AM EST6 UnitsLeft Lower HzfvsiwDdray10/23/2025 9:34 PM EST 10 UnitsRight Lower MwqibfzMpfaf91/23/2025 5:01 PM EST6 UnitsLeft Lower Abdomen insulin lispro (HumaLOG) injection 0-30 Units 0-30 Units, subcutaneous, 4 times daily with meals and nightly, First dose (after last modification) on Thu05/17/25 at 1200, For 392 doses, Carb Ratio - Breakfast (grams of carbs for each unit of insulin): 2.5, Carb Ratio - Lunch (grams of carbs for each unit of insulin): 2.5, Carb Ratio - Dinner (grams of carbs for each unit of insulin): 2.5, Carb Ratio - Bedtime Snack (grams of carbs for each unit of insulin): 2.5, BG < 150 instructions: No additional insulin. If BG less than 70, implement hypoglycemia orders., BG 151-200: 2, BG 201-250: 4, BG 251-300: 6, BG 301-350: 8, BG 351-400: 10, BG greater than 400 instructions: Hold Insulin Call Physician, Bedtime BG less than 200 instructions: No additional insulin, Bedtime BG 201-250: 2, Bedtime BG 251-300: 4, Bedtime GL 301-350: 6, Bedtime GL 351-400: 8 Given05/17/2025 1:40 PM EST14 UnitsLeft Lower Abdomen insulin lispro (HumaLOG) injection 14 Units 14 Units, subcutaneous, Once, On Thu05/16/25 at 0500, For 1 dose Given05/16/2025 5:19 AM EST14 UnitsRight Lower Abdomen insulin lispro (HumaLOG) injection 20 Units 20 Units, subcutaneous, Once, On Thu05/16/25 at 0800, For 1 dose Given05/16/2025 8:26 AM EST20 UnitsLeft Lower Abdomen levETIRAcetam (Keppra) tablet 1,000 mg 1,000 mg, oral, 2 times daily, First dose on Thu05/16/25 at 1000 Given05/17/2025 9:19 AM EST1,000 [id number]/16/2025 9:35 PM EST1,000 mgGiven 05/16/2025 8:24 AM EST1,000 mg levothyroxine (Synthroid, Levoxyl) tablet 75 mcg 75 mcg, oral, Daily before breakfast, First dose on Thu05/16/25 at 0730, For 99 days Given05/17/2025 6:33 AM EST75 smrFtudk07/23/2025 5:18 AM EST75 mcg metoprolol succinate XL (Toprol-XL) 24 hr tablet 50 mg 50 mg, oral, Daily, First dose on Thu05/16/25 at 1000, For 99 days, Do not crush or chew., On holdsince Thu05/16/2025 at 2038 until manually unheld Given05/16/2025 8:24 AM EST50 mg nystatin (Mycostatin) cream Topical, 2 times daily, First dose on Thu05/16/25 at 1130, For 99 days, Apply under breasts Given05/17/2025 9:27 AM QPLJzqdqWsesp68/23/2025 1:24 PM ESTOther ondansetron HCl (PF) (Zofran) injection 4 mg 4 mg, intravenous, Every 6 hours PRN, nausea, vomiting, Starting on Thu05/16/25 at 0321, For 99 days, Give IV if patient is unable to take orally. Administer as an IV push over 2 to 5 minutes. Given05/16/2025 5:39 AM EST4 mg ondansetron ODT (Zofran-ODT) disintegrating tablet 4 mg 4 mg, oral, Every 8 hours PRN, nausea, vomiting, Starting on Thu05/16/25 at 0321, For 99 days oxyCODONE-acetaminophen (Percocet) 5-325 mg per tablet 1 tablet 1 tablet, oral, Every 8 hours PRN, severe pain (8-10 pain score), Starting on Thu05/16/25 at 0418,For 99 days Given05/16/2025 5:18 AM EST1 tablet oxyCODONE-acetaminophen (Percocet) 7.5-325 mg per tablet 1 tablet 1 tablet, oral, Every 8 hours PRN, severe pain (8-10 pain score), Starting on Thu05/16/25 at 1128,For 99 days Given05/16/2025 1:27 PM EST1 tablet paliperidone (Invega) 24 hr tablet 6 mg 6 mg, oral, Every morning, First dose on Thu05/16/25 at 1000, For 99 days, Do not crush, chew, or split. Given05/16/2025 8:24 AM EST6 mg pantoprazole (ProtoNix) EC tablet 40 mg 40 mg, oral, Daily before breakfast, First dose on Thu05/16/25 at 0800, For 99 days, Do not crush,chew, or split., Indication: GERD Given05/16/2025 8:24 AM EST40 mg pregabalin (Lyrica) capsule 75 mg 75 mg, oral, 2 times daily, First dose on Thu05/16/25 at 0700, For 99 days Given05/17/2025 6:33 AM EST75 vdZkhyi1705/16/2025 9:35 PM EST75 tcHvhez9005/16/2025 6:19 AM EST75 mg QUEtiapine (SEROquel) tablet 800 mg 800 mg, oral, Nightly, First dose on Thu05/16/25 at 2200, For 99 days Given05/16/2025 9:35 PM QTC517 mg sennosides-docusate sodium (Gema-Colace) 8.6-50 mg per tablet 1 tablet 1 tablet, oral, 2 times daily PRN, constipation, Starting on Thu05/16/25 at 0321, For 99 days sodium chloride flush 10 mL 10 mL, intravenous, Every 8 hours PRN, line care, Starting on Thu05/16/25 at 0321, For 99 days tiZANidine (Zanaflex) tablet 4 mg 4 mg, oral, 3 times daily, First dose (after last modification) on Thu05/16/25 at 1000 Given05/16/2025 9:35 PM EST4 [id number]/16/2025 5:02 PM EST4 dfWxskh5705/16/2025 8:24 AM EST4 mgdocumented in this encounter Active and Recently Administered Medications Times are shown in EST.Medication Order atorvastatin (Lipitor) tablet 20 mg 20 mg, oral, Nightly, First dose on Thu05/16/25 at 2200, For 99 days * 213 (Given - Provider: Radha Devlin, JAEL) brexpiprazole (Rexulti) tablet 1 mg (CANCELED) 1 mg, oral, Daily, First dose on Thu05/16/25 at 1000, For 99 days * 0825 (Given - Provider: Jess Coronel, JAEL) citalopram (CeleXA) tablet 40 mg (CANCELED) 40 mg, oral, Daily, First dose on Thu05/16/25 at 1000, For 99 days * 0824 (Given - Provider: Jess Coronel, JAEL) heparin (porcine) injection 5,000 Units 5,000 Units, subcutaneous, Every 12 hours scheduled, First dose on Thu05/16/25 at 0330, For 99 days, Indications: deep vein thrombosis prevention * 0520 (Given - Provider: Rogelio Perez RN) * 1116 (Given - Provider: Jess Coronel, JAEL) * 213 (Given - Provider: Radha Devlin, JAEL) * 0920 (Given - Provider: Ruby Richardson RN) insulin glargine (Lantus) injection vial 25 Units (CANCELED) 25 Units, subcutaneous, Nightly, First dose on Thu05/16/25 at 0430, For 99 days * 0519 (Given - Provider: Rogelio Perez RN) insulin glargine (Lantus) injection vial 25 Units (CANCELED) 25 Units, subcutaneous, 2 times daily, First dose (after last modification) on Thu05/16/25 at 2200, For 193 doses * 213 (Given - Provider: Radha Devlin, JAEL) insulin glargine (Lantus) injection vial 30 Units (CANCELED) 30 Units, subcutaneous, 2 times daily, First dose (after last modification) on Thu05/16/25 at 1000, For 97 days * 1109 (Given - Provider: Jess CoronelJAEL) insulin glargine (Lantus) injection vial 30 Units 30 Units, subcutaneous, 2 times daily, First dose (after last modification) on Thu05/17/25 at 1000, For 192 doses * 1059 (Given - Provider: Ruby Richardson RN) insulin lispro (HumaLOG) injection 0-18 Units (CANCELED) 0-18 Units, subcutaneous, 4 times daily with meals and nightly, First dose on Thu05/16/25 at 1200,For 99 days, Carb Ratio - Breakfast (grams of carbs for each unit of insulin): 5, Carb Ratio - Lunch (grams of carbs for each unit of insulin): 5, Carb Ratio - Dinner (grams of carbs for each unit ofinsulin): 5, Carb Ratio - Bedtime Snack (grams of carbs for each unit of insulin): 5, BG < 150 instructions: No additional insulin. If BG less than 70, implement hypoglycemia orders., BG 151-200: 2, BG 201-250: 4, BG 251-300: 6, BG 301-350: 8, BG 351-400: 10, BG greater than 400 instructions: Hold Insulin Call Physician, Bedtime BG less than 200 instructions: No additional insulin, Bedtime BG 201-250: 2, Bedtime BG 251-300: 4, Bedtime GL 301-350: 6, Bedtime GL 351- 400: 8 * 1323 (Given - Provider: Jess Coronel RN) * 1701 (Given - Provider: Jess Coronel RN) * 2134 (Given - Provider: Radha Devlin RN) * 0928 (Given - Provider: Ruby Richardson RN) insulin lispro (HumaLOG) injection 0-30 Units 0-30 Units, subcutaneous, 4 times daily with meals and nightly, First dose (after last modification) on Thu05/17/25 at 1200, For 392 doses, Carb Ratio - Breakfast (grams of carbs for each unit of insulin): 2.5, Carb Ratio - Lunch (grams of carbs for each unit of insulin): 2.5, Carb Ratio - Dinner (grams of carbs for each unit of insulin): 2.5, Carb Ratio - Bedtime Snack (grams of carbs for each unit of insulin): 2.5, BG < 150 instructions: No additional insulin. If BG less than 70, implement hypoglycemia orders., BG 151-200: 2, BG 201-250: 4, BG 251-300: 6, BG 301-350: 8, BG 351-400: 10, BG greater than 400 instructions: Hold Insulin Call Physician, Bedtime BG less than 200 instructions: No additional insulin, Bedtime BG 201-250: 2, Bedtime BG 251-300: 4, Bedtime GL 301-350: 6, Bedtime GL 351-400: 8 * 1340 (Given - Provider: Ruby Richardson RN - Comment: didn't eat yet) insulin lispro (HumaLOG) injection 14 Units (COMPLETED) 14 Units, subcutaneous, Once, On Thu05/16/25 at 0500, For 1 dose * 0519 (Given - Provider: Rogelio Perez, JAEL) insulin lispro (HumaLOG) injection 20 Units (COMPLETED) 20 Units, subcutaneous, Once, On Thu05/16/25 at 0800, For 1 dose * 0826 (Given - Provider: Jess Coronel, JAEL) levETIRAcetam (Keppra) tablet 1,000 mg 1,000 mg, oral, 2 times daily, First dose on Thu05/16/25 at 1000 * 0824 (Given - Provider: Jess Coronel RN) * 2135 (Given - Provider: Radha Devlin, RN) * 0919 (Given - Provider: Ruby Richardson RN) levothyroxine (Synthroid, Levoxyl) tablet 75 mcg 75 mcg, oral, Daily before breakfast, First dose on Thu05/16/25 at 0730, For 99 days * 0518 (Given - Provider: Rogelio Perez, JAEL) * 0633 (Given - Provider: Radha Devlin, RN) metoprolol succinate XL (Toprol-XL) 24 hr tablet 50 mg 50 mg, oral, Daily, First dose on Thu05/16/25 at 1000, For 99 days, Do not crush or chew., On holdsince Thu05/16/2025 at 2037 until manually unheld * 0824 (Given - Provider: Jess Coronel RN) * 2038 (Held by provider - Provider: Shaikh Stan MD - Reason: Change in vital signs) * 1000 (Dose Auto Held - Provider: Shaikh Stan MD) * 1658 (Unheld by provider - Provider: Automatic Discharge Provider) nystatin (Mycostatin) cream Topical, 2 times daily, First dose on Thu05/16/25 at 1130, For 99 days, Apply under breasts * 1324 (Given - Provider: Jess Coronel RN) * 2200 (Not Given - Provider: Radha Devlin RN - Reason: Patient/family refused) * 0927 (Given - Provider: Ruby Richardson RN) paliperidone (Invega) 24 hr tablet 6 mg (CANCELED) 6 mg, oral, Every morning, First dose on Thu05/16/25 at 1000, For 99 days, Do not crush, chew, or split. * 0824 (Given - Provider: Jess Coronel RN) pantoprazole (ProtoNix) EC tablet 40 mg (CANCELED) 40 mg, oral, Daily before breakfast, First dose on Thu05/16/25 at 0800, For 99 days, Do not crush,chew, or split., Indication: GERD * 0824 (Given - Provider: Jess Coronel RN) pregabalin (Lyrica) capsule 75 mg 75 mg, oral, 2 times daily, First dose on Thu05/16/25 at 0700, For 99 days * 0500 (Canceled Entry - Provider: Rogelio Perez RN) * 0619 (Given - Provider: Rogelio Perez RN) * 2135 (Given - Provider: Radha Devlin RN) * 0633 (Given - Provider: Radha Devlin, JAEL) QUEtiapine (SEROquel) tablet 800 mg 800 mg, oral, Nightly, First dose on Thu05/16/25 at 2200, For 99 days * 2135 (Given - Provider: Radha Devlin, RN) tiZANidine (Zanaflex) tablet 4 mg 4 mg, oral, 3 times daily, First dose (after last modification) on Thu05/16/25 at 1000 * 0824 (Given - Provider: Jess Coronel RN) * 1702 (Given - Provider: Jess Coronel RN) * 2135 (Given - Provider: Radha Devlin RN) * 0919 (Not Given - Provider: Ruby Richardson RN - Reason: Other - Comment: BP low and patient lethargic) * 1600 (Canceled Entry - Provider: Automatic Discharge Provider - Comment: Automatically canceled at discontinue of medication order) Medication Order// alteplase (Cathflo Activase) injection 2 mg 2 mg, intra-catheter, As needed, line care, Starting on Thu05/16/25 at 0752, For 99 days, For occluded catheter ports. Instill 2 mg (2 mL) into each port, and retain for 0.5 - 2 hours. May repeat ifcatheter remains occluded. Dilute each 2 mg vial with 2.2 mL sterile water to give 1 mg/mL final concentration. Swirl gently to mix; do not shake. BUD: 8 hours at room temp. * 0825 (Given - Provider: Jess Coronel RN) dextrose 50 % in water (D50W) syringe 25 g(Linked Group 1) 25 g, intravenous, Every 15 min PRN, capillary blood glucose < 70 mg/dL and patient unable to take oral and has IV access, Starting on Thu05/16/25 at 0321, For 99 days, - Recheck blood glucose 5 minutes after dextrose administration. - Repeat treatment as ordered until blood glucose is greater than or equal to 80 mg/dL. - Provide a snack/meal within 1 hour after correction of hypoglycemia if not NPO. - If patient NPO or on enteral tube feeds, contact physician for potential additional interventions(s) (i.e. 5% or 10% dextrose IV fluids or tube feeding bolus) diazePAM (Valium) tablet 5 mg 5 mg, oral, Daily PRN, FOR CLAUSTROPHOBIA R/T MRI, GIVE 1 TAB 30-60 MIN BEFORE, REPEAT IF NEEDED., Starting on Thu05/16/25 at 0941, For 2 doses glucose chewable tablet 24 g(Linked Group 1) 24 g, oral, Every 15 min PRN, capillary blood glucose < 70 mg/dL and patient alert and eating, Starting on Thu05/16/25 at 0321, For 99 days, - Recheck blood glucose 5 minutes after dextrose administration. - Repeat treatment as ordered until blood glucose is greater than or equal to 80 mg/dL. -Provide a snack/meal within 1 hour after correction of hypoglycemia if not NPO. - If patient NPO oron enteral tube feeds, contact physician for potential additional interventions(s) (i.e. 5% or 10% dextrose IV fluids or tube feeding bolus) heparin lock flush 100 unit/mL syringe 500 Units 500 Units, intra-catheter, Once as needed, line care, Starting on Thu05/17/25 at 1052, For 99 days * 1340 (Given - Provider: Ruby Richardson RN) hydrOXYzine HCL (Atarax) tablet 50 mg 50 mg, oral, Every 6 hours PRN, itching, Starting on Thu05/16/25 at 0744 hydrOXYzine pamoate (Vistaril) capsule 100 mg 100 mg, oral, Nightly PRN, anxiety, Starting on Thu05/16/25 at 1128, For 99 days ondansetron HCl (PF) (Zofran) injection 4 mg(Linked Group 2) 4 mg, intravenous, Every 6 hours PRN, nausea, vomiting, Starting on Thu05/16/25 at 0321, For 99 days, Give IV if patient is unable to take orally. Administer as an IV push over 2 to 5 minutes. * 0539 (Given - Provider: Rogelio Perez RN) ondansetron ODT (Zofran-ODT) disintegrating tablet 4 mg(Linked Group 2) 4 mg, oral, Every 8 hours PRN, nausea, vomiting, Starting on Thu05/16/25 at 0321, For 99 days * 0539 (See Alternative - Provider: Rogelio Perez RN) oxyCODONE-acetaminophen (Percocet) 5-325 mg per tablet 1 tablet (CANCELED) 1 tablet, oral, Every 8 hours PRN, severe pain (8-10 pain score), Starting on Thu05/16/25 at 0418,For 99 days * 0518 (Given - Provider: Rogelio Perez RN) oxyCODONE-acetaminophen (Percocet) 7.5-325 mg per tablet 1 tablet 1 tablet, oral, Every 8 hours PRN, severe pain (8-10 pain score), Starting on Thu05/16/25 at 1128,For 99 days * 1327 (Given - Provider: Jess Coronel RN) sennosides-docusate sodium (Gema-Colace) 8.6-50 mg per tablet 1 tablet 1 tablet, oral, 2 times daily PRN, constipation, Starting on Thu05/16/25 at 320, For 99 days sodium chloride flush 10 mL(Linked Group 3) 10 mL, intravenous, Every 8 hours PRN, line care, Starting on Thu05/16/25 at 320, For 99 days Order Group 1: glucose chewable tablet 24 gJump to med 24 g, oral, Every 15 min PRN, capillary blood glucose < 70 mg/dL and patient alert and eating, Starting on Thu05/16/25 at 320, For 99 days, - Recheck blood glucose 5 minutes after dextrose administration. - Repeat treatment as ordered until blood glucose is greater than or equal to 80 mg/dL. -Provide a snack/meal within 1 hour after correction of hypoglycemia if not NPO. - If patient NPO oron enteral tube feeds, contact physician for potential additional interventions(s) (i.e. 5% or 10% dextrose IV fluids or tube feeding bolus) Or dextrose 50 % in water (D50W) syringe 25 gJump to med 25 g, intravenous, Every 15 min PRN, capillary blood glucose < 70 mg/dL and patient unable to take oral and has IV access, Starting on Thu05/16/25 at 320, For 99 days, - Recheck blood glucose 5 minutes after dextrose administration. - Repeat treatment as ordered until blood glucose is greater than or equal to 80 mg/dL. - Provide a snack/meal within 1 hour after correction of hypoglycemia if not NPO. - If patient NPO or on enteral tube feeds, contact physician for potential additional interventions(s) (i.e. 5% or 10% dextrose IV fluids or tube feeding bolus) Group 2: ondansetron ODT (Zofran-ODT) disintegrating tablet 4 mgJump to med 4 mg, oral, Every 8 hours PRN, nausea, vomiting, Starting on Thu05/16/25 at 320, For 99 days Or ondansetron HCl (PF) (Zofran) injection 4 mgJump to med 4 mg, intravenous, Every 6 hours PRN, nausea, vomiting, Starting on Thu05/16/25 at 320, For 99 days, Give IV if patient is unable to take orally. Administer as an IV push over 2 to 5 minutes. Group 3: Insert peripheral IV (CANCELED) Once, On Thu05/16/25 at 032, For 1 occurrence And Saline lock IV (CANCELED) Once, On Thu05/16/25 at 032, For 1 occurrence And sodium chloride flush 10 mLJump to med 10 mL, intravenous, Every 8 hours PRN, line care, Starting on Thu05/16/25 at 0321, For 99 days documented in this encounter Care Teams Team MemberRelationshipSpecialtyStart DateEnd Date Kyle Lopez MD [address] [place] [address] [address] [facility] [place] [address] PCP - AxifevmNxhhidycdvphwpih29/23/25 Mk Conti MD [address] [place] [address] Orthopaedic Surgery10/05/24documented as of this encounter
[2025-05-23 20:54] VITALS: BP 162/110; PULSE 98; TEMP 36.9; O2SAT 99; BMI 49.4
[2025-05-23 20:59] VITALS: BP 154/102
--- NOTE | 2025-05-23 21:05 | ED.NAVMDI1 ---
HPI - Nausea/Vomiting/Diarrhea General Chief complaint: Nausea/Vomiting/Diarrhea Stated complaint: other Time Seen by Provider: 05/23/25 20:59 Source: patient Mode of arrival: ambulance History of Present Illness HPI Narrative: This 50-year-old female who is well-known to this emergency department and was transferred by myself to [place] last week after she claims she could not walk or feel her legs and was released from the hospital several days later presents for evaluation of nausea and vomiting. She states she cannot keep anything down. She is still urinating. According to EMS she was dry heaving upon their arrival. An IV was placed and she was given 4 mg of Zofran. The patient states to me that she got home and they were having a Gilma dinner but she could not eat it due to nausea and vomiting. She is not having any diarrhea. She is known to be noncompliant diabetic. According to EMS her sugar was in the 200s. Related Data Home Medications ?Medication ?Instructions ?Recorded ?Confirmed albuterol sulfate 90 mcg/actuation 1 puff inhalation Q4H PRN 10/23/22 12/31/24 aerosol inhaler (Ventolin HFA) shortness of breath or wheezing aspirin 81 mg tablet,delayed 81 mg PO .daily 10/23/22 12/31/24 release chlorthalidone 25 mg tablet 25 mg PO .daily 10/23/22 12/31/24 levothyroxine 75 mcg tablet 75 mcg PO .ACB 06/25/24 12/31/24 loratadine 10 mg tablet 10 mg PO .QD 06/25/24 12/31/24 nortriptyline 25 mg capsule 25 mg PO .QHS 06/25/24 12/31/24 citalopram 40 mg tablet 40 mg PO DAILY 09/30/24 12/31/24 levetiracetam 1,000 mg tablet 1,000 mg PO Q12H 09/30/24 12/31/24 metoprolol succinate 50 mg 50 mg PO DAILY 09/30/24 12/31/24 tablet,extended release 24 hr paliperidone 9 mg tablet,extended 9 mg PO Q24H 09/30/24 12/31/24 release 24 hr pantoprazole 40 mg tablet,delayed 40 mg PO DAILY 09/30/24 12/31/24 release pregabalin 75 mg capsule 75 mg PO Q12H 09/30/24 12/31/24 tizanidine 4 mg tablet 8 mg PO BEDTIME 09/30/24 12/31/24 Previous Rx's ?Medication ?Instructions ?Recorded atorvastatin 40 mg tablet 40 mg PO QHS 90 days #90 tabs 12/30/24 clopidogrel 75 mg tablet 75 mg PO QD 21 days #21 tabs 12/30/24 calcium carbonate 500 mg (2.5 x 200 mg calcium (500 01/03/25 mg)) PO TID PRN Indigestion or heartburn #0 tabs docusate sodium 100 mg capsule 100 mg PO BID PRN Constipation #0 01/03/25 caps insulin aspart U-100 100 unit/mL 3 - 15 unit (0.03 - 0.15 mL) 01/03/25 (3 mL) subcutaneous pen (Novolog subcut ACHS #0 mL FlexPen U-100 Insulin aspart) insulin aspart U-100 100 unit/mL 7 unit (0.07 mL) subcut ACHS #0 mL 01/03/25 (3 mL) subcutaneous pen (Novolog FlexPen U-100 Insulin aspart) insulin glargine 100 unit/mL (3 50 unit (0.5 mL) SQ QHS #0 mL 01/03/25 mL) subcutaneous pen (Lantus Solostar U-100 Insulin) oxycodone-acetaminophen 5 mg-325 1 tab PO Q8H PRN pain 3 days #15 01/03/25 mg tablet tabs quetiapine 100 mg tablet 400 mg (4 x 100 mg) PO QHS #0 tabs 01/03/25 sennosides 8.6 mg-docusate sodium 1 tab PO QD PRN Constipation #0 01/03/25 50 mg tablet (Senna Plus) tabs Allergies Allergy/AdvReac Type Severity Reaction Status Date / Time Iodinated Contrast Media Allergy Unknown Rash Verified 05/15/25 20:00 latex Allergy Rash Verified 05/15/25 20:00 vancomycin Allergy Rash Verified 05/15/25 20:00 acetaminophen (From AdvReac Rash Verified 05/15/25 20:00 Darvocet-N) adhesive tape AdvReac Rash Verified 05/15/25 20:00 codeine AdvReac Rash Verified 05/15/25 20:00 dextrose 5 % in water (From AdvReac Rash Verified 05/15/25 20:00 Zyvox) fentanyl AdvReac Rash Verified 05/15/25 20:00 ibuprofen AdvReac Rash Verified 05/15/25 20:00 linezolid (From Zyvox) AdvReac Rash Verified 05/15/25 20:00 propoxyphene (From AdvReac Rash Verified 05/15/25 20:00 Darvocet-N) Review of Systems ROS Status of ROS 10 or more systems reviewed and unremarkable except as noted in history and below [facility] Medical History (Updated 05/24/25 @ 00:00 by Farideh Archer MD) Pacemaker ?Z95.0 - Presence of cardiac pacemaker (ICD-10) CKD (chronic kidney disease) ?N18.9 - Chronic kidney disease, unspecified (ICD-10) Acute CVA (cerebrovascular accident) ?I63.9 - Cerebral infarction, unspecified (ICD-10) Hyperglycemia ?R73.9 - Hyperglycemia, unspecified (ICD-10) Generalized seizure ?R56.9 - Unspecified convulsions (ICD-10) Uncontrolled diabetes mellitus Cholecystectomy planned Hysterectomy planned CHF (congestive heart failure) ?I50.9 - Heart failure, unspecified (ICD-10) Schizo affective schizophrenia ?F25.9 - Schizoaffective disorder, unspecified (ICD-10) Bipolar 1 disorder ?F31.9 - Bipolar disorder, unspecified (ICD-10) Depressed ?F32.A - Depression, unspecified (ICD-10) Diabetes ?E11.9 - Type 2 diabetes mellitus without complications (ICD-10) Family History Father Family history of CHF (congestive heart failure) Family history of diabetes mellitus Family history of myocardial infarction Mother Family history of COPD (chronic obstructive pulmonary disease) Family history of stroke Social History (Updated 12/31/24 @ 20:17 by Ne Mejias RN) Within the past year, how often did you have a drink containing alcohol: never Score interpretation: A score less than 3 is consistent with normal alcohol consumption. Smoking status: Current every day smoker Second hand tobacco smoke exposure: Yes Non-prescribed substance use: denies use Known occupational exposures/hazards: No Highest level of school completed/degree received: 11th grade In a typical week, how many times do you talk on the telephone with family, friends, or neighbors: 3 or more times per week Little interest or pleasure in doing things: not at all Feeling down, depressed, or hopeless: not at all Feel stressed/tense/nervous/anxious/difficulty sleeping: only a little Life stressors: other Life stressor details: Pt was discharged to a SNF on 12/30/2024. Was there for approx 12 hours, and family arrived to sign her out r/t pt stated complaint of that shelter was not for me. Now states that she is concerned about finding a rehab. Exam Narrative Exam Narrative: Vital signs and Nursing Notes reviewed: Patient is afebrile with a mild elevation in her pulse at 98, blood pressure is elevated 154/102, she is not hypoxic with pulse ox of 99% on room air General: Awake, alert, oriented, no acute distress, sitting upright in the stretcher with an emesis basin in front of her, no active vomiting HEENT: Normocephalic atraumatic, mucous membranes are moist and pink, eyes are clear, normal conjunctiva, vision is grossly intact Neck: Supple, no meningeal signs, no anterior or posterior cervical lymphadenopathy Chest: Lungs are clear to auscultation with good air entry, there is no wheezing rhonchi or rales appreciated no accessory muscle use, patient is speaking in complete sentences-no chest wall tenderness to palpation CVS: Regular rate and rhythm S1-S2, no murmurs rubs or gallops, pulses are brisk and equal bilaterally ABD: Obese, soft, nondistended, nontender, no rebound guarding or rigidity Extremities: Moving all extremities, no lower extremity tenderness or swelling noted, negative Homans' sign, pulses are brisk and equal bilaterally Skin: Normal in appearance without rash,pallor, petechiae or purpura Neuro: No focal deficits Constitutional Vital Signs, click to edit/add: Last Vital Signs Temp 98.4 F 05/23/25 20:54 Pulse 98 H 05/23/25 20:54 Resp 18 05/23/25 20:54 BP 154/102 H 05/23/25 20:59 Pulse Ox 99 05/23/25 20:54 O2 Del Method Room Air 05/23/25 20:54 Course Vital Signs Vital signs: Vital Signs Temperature 98.4 F 05/23/25 20:54 Pulse Rate 98 H 05/23/25 20:54 Respiratory Rate 18 05/23/25 20:54 Blood Pressure 162/110 H 05/23/25 20:54 Pulse Oximetry 99 05/23/25 20:54 Oxygen Delivery Method Room Air 05/23/25 20:54 Temperature 98.4 F 05/23/25 20:54 Pulse Rate 98 H 05/23/25 20:54 Respiratory Rate 18 05/23/25 20:54 Blood Pressure 154/102 H 05/23/25 20:59 Pulse Oximetry 99 05/23/25 20:54 Oxygen Delivery Method Room Air 05/23/25 20:54 MDM - Nausea/Vomiting/Diarrhea MDM Narrative Medical decision making narrative: This is a 50-year-old female who presents for evaluation of nausea and vomiting. She states she has not been able to keep anything down for the past 5 days. She was recently transferred to [facility] after she was in this emergency department 8 days ago stating that she could not walk. She states that she did not get an MRI and needs to go back to the hospital for a myelogram but at this point she is able to walk and called EMS to come to the hospital tonight for nausea and vomiting. She states that over Gilma she was not able to eat anything for Gilma dinner and has been having ongoing nausea and vomiting since that time. She does have an insulin pump. She states she feels like she cannot keep anything down and has something stuck in her throat. She is not having any spitting or pooling of secretions. In the emergency department she is not having any dry heaves or active vomiting. She had been given IV Zofran by EMS but stated to me that she did not think that was going to work for her. Her port was accessed and she was given IV fluids. Routine labs were ordered and are reviewed. She is negative for influenza. She has a normal white count and stable hemoglobin. BUN and creatinine are stable. LFTs are normal. Her bicarb is normal at 27. Acetone was negative. Glucose was elevated at 192 but stable for her. She requested something additional for nausea and was given IM Phenergan. She has not had any episodes of nausea or vomiting while in the emergency department. An abdominal series x-ray was ordered to rule out bowel obstruction or pneumonia etc. but this is reviewed by radiology and is also negative. On reevaluation she is tolerating ice chips. She will be discharged home with a prescription for Phenergan. Lab Data Labs: Lab Results 05/23/25 05/23/25 Range/Units 21:35 21:45 WBC 9.9 (4.0-11.0) 10^3/uL RBC 3.86 L (4.20-5.40) 10^6/uL Hgb 11.8 L (12.0-16.0) g/dL Hct 34.5 L (36.0-48.0) % MCV 89.4 (81.0-99.0) fL MCH 30.6 (26.7-34.0) pg MCHC 34.2 (29.9-35.2) g/dL RDW 13.2 (11.0-15.0) % Plt Count 315 (150-450) 10^3/uL MPV 8.9 L (9.5-13.5) fL Neut % (Auto) 74.2 (43.0-75.0) % Lymph % (Auto) 17.1 L (20.5-60.0) % [place] % (Auto) 6.0 (1.7-12.0) % Eos % (Auto) 1.6 (0.9-7.0) % Baso % (Auto) 0.6 (0.2-2.0) % Neut # (Auto) 7.3 H (1.4-6.5) 10^3/uL Lymph # (Auto) 1.7 (1.2-3.8) 10^3/uL [place] # (Auto) 0.6 (0.3-0.8) 10^3/uL Eos # (Auto) 0.2 (0.0-0.7) 10^3/uL Baso # (Auto) 0.1 (0.0-0.1) 10^3/uL Abs Immat Gran (auto) 0.05 H (0.00-0.03) 10^3/uL Imm/Tot Granulo (auto) 0.5 (0.0-0.5) % Sodium 137 (136-145) mmol/L Potassium 3.7 (3.5-5.1) mmol/L Chloride 102 (98-107) mmol/L Carbon Dioxide 27.2 (21.0-32.0) mmol/L Anion Gap 11.5 BUN 21.0 H (7.0-18.0) mg/dL Creatinine 1.36 H (0.55-1.02) mg/dL Est GFR ( Amer) 50 L (>=60 mL/min/1.73m^2) Est GFR (Non-Af Amer) 41 L (>=60 mL/min/1.73m^2) BUN/Creatinine Ratio 15.4 Glucose 192 H (74-106) mg/dL Calcium 8.5 (8.5-10.1) mg/dL Total Bilirubin 0.5 (0.2-1.0) mg/dL AST 9 L (15-37) U/L ALT 14 (14-59) U/L Alkaline Phosphatase 114 (46-116) U/L Total Protein 7.0 (6.4-8.2) g/dL Albumin 3.2 L (3.4-5.0) g/dL Globulin 3.8 g/dL Albumin/Globulin Ratio 0.8 Acetone, Qual Negative (NEGATIVE) Influenza Type A Ag Negative Influenza Type B Ag Negative Imaging Data Abdominal x-ray: Radiologist's impression: ITS Impressions Chest/Abdomen X-ray 05/23/25 22:45 IMPRESSION: No acute cardiopulmonary pathology. No bowel obstruction or free air. Impression dictated by: Compa Dobbs M.D. 05/23/2025 11:29 PM Dictation Location: [place] [address] Electronically authenticated by: [id number] Y Date: 05/23/2025 23:29 Discharge Plan Discharge Chief Complaint: Nausea/Vomiting/Diarrhea Clinical Impression: Nausea and vomiting in adult Patient Disposition: Home, Self-Care Time of Disposition Decision: 00:00 Condition: Good Prescriptions / Home Meds: No Action citalopram 40 mg tablet 40 mg PO DAILY tizanidine 4 mg tablet 8 mg PO BEDTIME metoprolol succinate 50 mg tablet extended release 24 hr 50 mg PO DAILY pantoprazole 40 mg tablet,delayed release (DR/EC) 40 mg PO DAILY pregabalin 75 mg capsule 75 mg PO Q12H levetiracetam 1,000 mg tablet 1,000 mg PO Q12H paliperidone 9 mg tablet extended release 24hr 9 mg PO Q24H atorvastatin 40 mg Tablet 40 mg PO QHS 90 Days Qty: 90 0RF clopidogrel 75 mg Tablet 75 mg PO QD 21 Days Qty: 21 0RF albuterol sulfate [Ventolin HFA] 90 mcg/actuation HFA aerosol inhaler 1 puff INHALATION Q4H PRN (Reason: shortness of breath or wheezing) chlorthalidone 25 mg tablet 25 mg PO .daily aspirin 81 mg tablet,delayed release (DR/EC) 81 mg PO .daily levothyroxine 75 mcg tablet 75 mcg PO .ACB loratadine 10 mg tablet 10 mg PO .QD nortriptyline 25 mg capsule 25 mg PO .QHS calcium carbonate 200 mg calcium (500 mg) Tablet,Chewable 500 mg PO TID PRN (Reason: Indigestion or heartburn) Qty: 0 0RF docusate sodium 100 mg Capsule 100 mg PO BID PRN (Reason: Constipation) Qty: 0 0RF insulin aspart U-100 [Novolog FlexPen U-100 Insulin] 100 unit/mL (3 mL) Insulin Pen 3 - 15 unit subcut ACHS Qty: 0 0RF insulin aspart U-100 [Novolog FlexPen U-100 Insulin] 100 unit/mL (3 mL) Insulin Pen 7 unit subcut ACHS Qty: 0 0RF insulin glargine [Lantus Solostar U-100 Insulin] 100 unit/mL (3 mL) Insulin Pen 50 unit SQ QHS Qty: 0 0RF sennosides-docusate sodium [Senna Plus] 8.6-50 mg Tablet 1 tab PO QD PRN (Reason: Constipation) Qty: 0 0RF quetiapine 100 mg Tablet 400 mg PO QHS Qty: 0 0RF oxycodone-acetaminophen 5-325 mg tablet 1 tab PO Q8H PRN (Reason: pain) 3 Days Qty: 15 0RF Print Language: Greenlandic Instructions: Acute Nausea and Vomiting (ED) Referrals: QUINN SANDOVAL [Primary Care Provider] - 1 week
[2025-05-23] MEDS: FAMOTIDINE/PF 20 MG/2 ML VIAL IV (21:22)
[2025-05-23] MEDS: 0.9 % SODIUM CHLORIDE 1,000 ML 1000 ML IV (21:23)
--- OUTSIDE RECORDS SUMMARY | 2025-05-23 21:28 | XMS_ITS | Encounter Summary ---
Author Organization [facility] Address [address] [place] [address] Care Team Providers Care Unit Tender Name Role Phone Mk Conti MD Unavailable [phone] Kyle Lopez MD Primary Care Provider [phone] Encounter Details DateTypeDepartmentCare Team (Latest Contact Info)Llgtdsgaxfw91/23/2025Travel Social History Tobacco UseTypesPacks/DayYears UsedDateSmoking Tobacco: Every [...] living in a group home (including now)? No05/16/2025Hunger Vital SignAnswerDate RecordedWithin the past 12 months, you worried that your food would run out before you got the money to buymore.Never true05/16/2025Ran Out of Food in the Last YearNot on file05/16/2025 CommentsUnknownSex and Gender InformationValueDate RecordedSex Assigned at Jaqdpj9505/16/2025 2:28 AM ESTLegal ZmzIirtkj60/29/2022 9:59 PM EDTGender Identity Peqkza0305/16/2025 2:28 AM ESTSexual OrientationDon't know05/16/2025 2:28 AM EST documented as of this encounter Functional Status * Suicidal IdeationQuestionAnswerDate of AssessmentAuthor1. Wish to be (Lifetime)No05/16/2025 2:38 AM Kayleigh Aldana RN2. Non-Specific Active Suicidal Thoughts (Lifetime)No05/16/2025 2:38 AM Kayleigh Aldana RN documented as of this encounter Plan of Treatment DateTypeDepartmentCare Team (Latest Contact Info)Nvnisenflqh63/12/2026 8:30 AM ESTAppointment [facility] [address] [place] [address] Radiology, Radiologist, [address] [place] [address] 06/05/2025 9:[address] [facility] [address] [place] [address] 06/05/2025 10:[address] [facility] [address] [facility] [address] [place] [place] [address] 06/05/2025 10:[address] [facility] [address] [facility] [address] [place] [address] documented as of this encounter Visit Diagnoses Not on filedocumented in this encounter Care Teams Team MemberRelationshipSpecialtyStart DateEnd Kyle Lopez MD [facility] [address] [facility] [address] [facility] [place] [id number] PCP - EujbujwMnrrjbqfglqqwqob43/23/25 Mk Conti MD [address] [place] [address] Orthopaedic Surgery10/05/24documented as of this encounter
--- OUTSIDE RECORDS SUMMARY | 2025-05-23 21:28 | XMS_ITS | Clinical Summary ---
Author Organization [employer] tem Address [id number] [place] [address] Care Team Providers Care Spectrographic Analyst Name Role Phone Unavailable Primary Care Provider Unavailabl e Allergies Active AllergyReactionsCriticalityNoted DateCommentsAdhesive Tape-Silicones 08/17/20170700VpgkwhaXfe61/26/2018Propoxyphene N-AcetaminophenVomitingMedium 08/17/2017Dye08/17/20171765Jojncdmtl86/26/5299Xjcfw02/26/2018KetorolacHivesLow 08/17/20173818KjtpzhobNmexnHaxqlp03/26/9787Fcknidftxd58/26/2018 Medications MedicationSigDispense QuantityRefillsLast FilledStart DateEnd DateStatus levothyroxine [...] Active Problems ProblemNoted DateDiagnosed DateSudden loss of ucqkzk6712/03/2024Hyperosmolar hyperglycemic state (HHS)12/03/2024KI (acute kidney injury)12/03/2024HHS (hypothenar hammer syndrome)12/03/2024Right leg pcvyznji93/12/2022 Immunizations ImmunizationAdministration DatesNext DueCOVID-19, mRNA, LNP-S, PF, 100mcg/0.5mL Dose12/02/2020Influenza Tri-valent Im, Adult02/11/2024Influenza Whole05/28/2015 Influenza, Im Trivalent Owgfvnmeilfk81/02/2014Influenza, Injectable, Gctesecswnvl25/01/2018Influenza, Injectable, quadrivalent (PF)05/06/2023, 04/09/2022,03/06/2021,06/05/2020,1Pneumococcal Conjugate 20-valent 05/06/2023,3Pneumococcal Hovhbdoiupykge37/13/7371Lyqs20/30/2022 Family History Medical HistoryRelationNameCommentsLung diseaseMotherRelationNameStatusComments MotherDeceased Social History Tobacco UseTypesPacks/DayYears UsedDateSmoking Tobacco: Every DayCigarettes Smokeless Tobacco: Never Tobacco Cessation:Ready to Q uit: Not Asked; Counseling Given: Not Answered Comments:Vapes nicotine Alcohol UseStandard Drinks/WeekCommentsNot Currently0 (1 standard drink = 0.6 oz pure alcohol)[facility] UtilitiesAnswerDate RecordedIn the past 12 months has the Dash[employer], [employer], oil, or water [employer] threatened to shut off services in your home?No12/03/2024UDIT-CAnswerDate RecordedQ1: How often do you have a drink containing alcohol?Monthly or less12/03/2024Q2: How many drinks containing alcohol do you have on a typical day when you are drinking?1 or Q3: How often do you have six or more drinks on one occasion?Never12/03/2024PHQ-2 AnswerDate RecordedTotal Tjoue837PRAPARE - TransportationAnswerDate RecordedIn the past 12 months, [...] as a part of a household?No12/03/2024 ChildcareAnswerDate PjvmmojpYfrtxgwpjDwkzfrq29/10/2019EmploymentAnswerDate XwmzyqhxCbjwezbrpvPvfowen55/10/2019Hunger ScreeningAnswerDate RecordedWithin the past 12 months we worried whether our food would run out before we got money to buy more.Never True12/04/2024Within the past 12 months the food we bought just didn't last and we didn't have money to get more.Never True12/04/2024Purpose - LifeAnswerDate RecordedPurpose and direction in gyijFikevtr40/10/2021 CommentsNoSex and Gender InformationValueDate RecordedSex Assigned at BirthNot on fileLegal MsuSvuggx66/04/2015 12:36 PM EDTGender IdentityNot on fileSexual OrientationNot on file Last Filed Vital Signs Vital SignReadingTime TakenCommentsBlood Uibmdlml850/8612/05/2024 12:15 PM EDT Bzeau374812/05/2024 12:15 PM NBVKiywaponima98.1 ??C (98.7 ??F)12/05/2024 12:15 PM EDTRespiratory Qzgk062812/05/2024 12:15 PM EDTOxygen Kecltxrclw27%12/05/2024 8:12 AM EDTInhaled Oxygen Concentration--Ptfdeo147.4 kg (245 lb 9.5 oz)12/03/2024 12:15 AM SMVAhlslu804.5 cm (5' 2.01 )12/03/2024 12:15 AM EDTBody Mass Index44.91 12/03/2024 12:15 AM EDT Plan of Treatment Health MaintenanceDue DateLast DoneCommentsDiabetic Ophthalmology Exam1977 Tobacco Bbpkxagesk1977Adult BMI Follow Up Plan1995Diabetic Foot Exam 1995COVID-19 Vaccine ( season)/, 12/02/2020 Influenza Sgovhpc53/, 05/06/2023, 04/09/2022, Additional history existsStatin Use: Jnugkwqi27/dult BMI Screening /04/2025Depression Ysqbddomn11/04/2025Tobacco Screening /04/2025DTaP,Tdap and Td Vaccines (2 - Td or Tdap)02/22/2032 02/21/2022 Goals GoalPatient Goal TypeAssociated ProblemsRecent ProgressPatient-Stated?Author Return Home Mary López, RN Note: Evaluation of progress towards goal: safe discharge to [facility] with Home Care and daughter, friend support <enter goal here> Ezra Root, JAEL Note: Evaluation of progress towards goal: home with [facility] Medical Devices ImplantedTypeAreaManufacturerDevice IdentifierShelf Expiration DateModel / Serial / LotCapsurefix Abdulkadir Mri Surescan [id number]/30/2017 Implanted:03/30/2017 (Quantity not on file)MEDTRONIC CARD RHYTHM [id number] / / (Not Safe)Evera Mri Xt Us_Version Implanted:04/06/2019 (Quantity not on file)MEDTRONIC CARD RHYTHM [id number] / / Description:NOT SAFE DUE TO ABANDONED CAPPED LEAD PER VAN [employer].Sprint Quattro Secure S [id number]-04/06/2019 Implanted:04/06/2019 (Quantity not on file)MEDTRONIC CARD RHYTHM [id number] / / Insurance Advance Directives * Full Code (Latest Code Status on File) Date ActivatedDate InactivatedComments12/03/2024 7:40 AM12/05/2024 7:18 PM * Full Code Date ActivatedDate QebjghnvhaeKanloopi23/13/2022 2:06 AM03/11/2022 9:21 PM
--- OUTSIDE RECORDS SUMMARY | 2025-05-23 21:28 | XMS_ITS | Clinical Summary ---
Author Organization [facility] Address [address] [place] [address] Care Team Providers Care Equipment Service Technician Name Role Phone George Rob DO Primary Care Provider Obdulia Soto Ethan Unavailable Allergies Active AllergyReactionsCriticalityNoted DateCommentsAdhesive Tape (Rosins) Ugyvcfm6507/17/20171609LjeqxgmFfzf90/23/2018Propoxyphene N-AcetaminophenGI Upset 07/17/2017DyeContraindication-Medical Peyewlgh84/23/4545MqaawTvdj29/23/2018 Ketorolac WstenvchjndtLegl82/23/6337OunljjznDccr31/23/2018Vancomycin Contraindication-Medical Kydezitt95/23/2018 Medications MedicationSigDispense QuantityRefillsLast FilledStart DateEnd DateStatus aspirin [...] once daily.Active Active Problems ProblemNoted DateDiagnosed DateSinus /23/2018S/P cardiac pacemaker susmoqdhf63/23/2018Controlled type 2 diabetes mellitus without complication, with long-term current use of yaaogzh5607/17/2017Essential cysibnwmtcxm81/23/2018 Bxhafvlhvebmri75/23/2018 Family History Medical HistoryRelationCommentsDiabetesFatherHeartFatherCABG e6Qezltdhcklsl FatherStrokeFatherCancerMotherThyroidSeizuresMotherRelationStatusCommentsFather Mother Social History Tobacco UseTypesPacks/DayYears UsedDateSmoking Tobacco: MonvytAnsipwdsoz777 04/16/1993 - 04/16/2017Smokeless Tobacco: NeverAlcohol UseStandard Drinks/Week CommentsNo0 (1 standard drink = 0.6 oz pure alcohol)Area Deprivation IndexAnswer Date RecordedNational Score (1-100), lower number is lower riskNot on file 04/29/2020State Score (1-10), lower number is lower riskNot on file04/29/2020 Data from: https://www.neighborhoodatlas.medicine.[facility].edu/. Last address used for calculationNot on file04/29/2020CommentsUnknownSex and Gender InformationValueDate RecordedSex Assigned at BirthNot on fileLegal SexFemale 12/13/2014 1:58 PM EDTGender IdentityNot on fileSexual OrientationNot on file Last Filed Vital Signs Vital SignReadingTime TakenCommentsBlood Yhvmdueb189/8807/17/2017 9:20 AM EST Hacyq2159 9:20 AM ESTTemperature--Respiratory Agdc671107/17/2017 9:20 AM ESTOxygen Fhvwstxqnp60%07/17/2017 9:20 AM ESTInhaled Oxygen Concentration-- Ffmzss61.9 kg (196 lb)07/17/2017 9:20 AM JYVWrkuse990.5 cm (5' 2 )07/17/2017 9:20 AM ESTBody Mass Index35.85007/17/2017 9:20 AM EST Plan of Treatment Health MaintenanceDue DateLast DoneCommentsAnxiety Jqrpyidfq65/25/1995Depression Rxkxilvls69/25/1995HIV Clusjvnhg81/25/1995Hepatitis C Uzuxrqtel74/25/1995 DTaP,Tdap,Td Vaccine (1 - Tdap)1996Hepatitis B Vaccine (1 of 3 - 19+ 3- dose series)1996Cervical Cancer Ehtamxcko99/25/1998Mammogram Screening 2017CT Ubxiwiuoodcf36/25/2022Cologuard (FIT-DNA)2Colonoscopy 2022olorectal Cancer Dhwkeqdqe03/25/2022Diabetes Mdorotefn73/25/2022Fecal Occult Blood2022Lipid Doaktjodz84/25/0451Hyykbtbqwcwcu64/25/2022Covid-19 Vaccine (1 - 2024- season)2025Influenza Vaccine (#1)2025 Insurance Care Teams Team MemberRelationshipSpecialtyStart DateEnd Date George Rob DO PCP - GeneralFamily Medicine12/13/14 Soto Steiner [address] [place] [phone] PhysicianPodiatry2
--- OUTSIDE RECORDS SUMMARY | 2025-05-23 21:28 | XMS_ITS | Encounter Summary ---
Author Organization [facility] Address [address] [place] [address] Care Team Providers Care Consignee Name Role Phone Mk Conti MD Unavailable [phone] Kyle Lopez MD Primary Care Provider [phone] Encounter Details DateTypeDepartmentCare Team (Latest Contact Info)Eexxydgwycc06/30/2025Orders Only [facility] CT Imaging [address] [place] [phone] Small, Comfort, ARRT Spondylosis without myelopathy or radiculopathy, lumbar region (Primary Dx); Other symptoms and signs involving the musculoskeletal system; Unspecified fall, initial encounter; Lumbago with sciatica, left side; Other chronic pain Social History Tobacco UseTypesPacks/DayYears UsedDateSmoking Tobacco: Every [...] RecordedIn the past 12 months has the [employer], gas, oil, or water company threatened to [...] CommentsUnknownSex and Gender InformationValueDate RecordedSex Assigned at Lechrg6805/16/2025 2:28 AM ESTLegal KrmRjzglo30/29/2022 9:59 PM EDTGender Identity Dqtrja7905/16/2025 2:28 AM ESTSexual OrientationDon't know05/16/2025 2:28 AM EST documented as of this encounter Plan of Treatment DateTypeDepartmentCare Team (Latest Contact Info)Wgnnyswldbe58/12/2026 8:30 AM ESTAppointment [facility] X-Ray Imaging [address] [place] [address] Radiology, Radiologist, [address] [place] [address] 06/05/2025 9:30 AM ESTAppointment [facility] CT Imaging [address] [place] [address] 06/05/2025 10:00 AM ESTAppointment [facility] CT Imaging [address] [place] [address] 06/05/2025 10:30 AM ESTAppointment [facility] CT Imaging [address] [place] [address] documented as of this encounter Visit Diagnoses Diagnosis Spondylosis without myelopathy or radiculopathy, lumbar region- Primary Other symptoms and signs involving the musculoskeletal system Unspecified fall, initial encounter Lumbago with sciatica, left side Other chronic pain documented in this encounter Care Teams Team MemberRelationshipSpecialtyStart DateEnd Date Kyle Lopez MD [facility] [address] [facility] [address] [facility] [place] [phone] PCP - MxohbumEmlledcglzniprph18/23/25 Mk Conti MD [address] [place] [address] Orthopaedic Surgery10/05/24documented as of this encounter
--- OUTSIDE RECORDS SUMMARY | 2025-05-23 21:28 | XMS_ITS | Patient Health Record ---
Author Organization [facility] Address [address] [place] [address] Care Team Providers Care Automatic Car Wash Attendant Name Role Phone Maye Jordan Primary Care [...] Orally Twice a day; Duration: 30 day(s)ActiveNystatin 062063 UNIT/GM Ointment1 application Externally Twice a day; [...] follow up with wound care for next tetxvg0712/23/2022 ActiveKeppra 750 MG Tablet1 tablet Orally every [...] a drink containing alcohol in the past year?EwYligit6TtlouevfftchmuBujyajmy Behaviors affecting healthPoor/Risky Behaviors:Denies-Communication Barrier: Language Barrier?:NoSection Notes: Vapes Vapes Vapes Vapes Vapes Vapes Vapes Vapes Vapes Vapes Vapes Vapes Problems Problem Type SNOMED Code ICD Code Onset Dates Problem Status W/U Status Risk Notes Problem Diabetic foot ulcer (086776492) Diabetes mellitus due to underlying condition with foot ulcer (E08.621) ActiveconfirmedProblemType II diabetes mellitus with arthropathy (245582390)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)Activeconfirmed ProblemChronic ulcer of foot (969883374)Non-pressure chronic ulcer of left heel and midfoot with fat layer exposed (L97.422)ActiveconfirmedProblemSciatica (07471742)Lumbago with sciatica, right side (M54.41)ActiveconfirmedProblem Sciatica (94432875)Lumbago with sciatica, left side (M54.42)Activeconfirmed ProblemLong-term current use of insulin (251579878)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 insulin (Z79.4)ActiveconfirmedProblemBipolar 1 disorder (395075933)Bipolar 1 disorder (F31.9)ActiveconfirmedProblemChronic pain (95038336)Other chronic pain (G89.29)ActiveconfirmedProblemPrimary hypertension (47971169)Primary hypertension (I10)ActiveconfirmedProblemDiabetic renal disease (363260778) Diabetic nephropathy associated with type 2 diabetes mellitus (E11.21)Active confirmedProblemHypothyroidism (26448688)Hypothyroidism, unspecified type (E03.9)ActiveconfirmedProblemMigraine with aura (7252515)Migraine with aura and without status migrainosus, not intractable (G43.109)ActiveconfirmedProblemMRSA (Methicillin resistant Staphylococcus aureus) infection (097925299)MRSA (methicillin resistant Staphylococcus aureus) infection (A49.02)Activeconfirmed ProblemIncontinence without sensory awareness (815918615)Urinary incontinence without sensory awareness (N39.42)ActiveconfirmedProblemLoss of vision of left eye (178067593)Vision loss, left eye (H54.62)Activeconfirmed Plan Of Treatment No Information Insurance Providers Payer Name Payer Address Payer Phone Subscriber Number Group Number Insured Name Patient Relationship to Insured Coverage Start Date Coverage End Date [employer] [place] Medicaid [address] [place] [address] [id number] ORGAN, CATHYSelf - patient is the [id number] 2022Wrap ABD CareSourcePO [address] [place] [id number], CATHYSelf - patient is the [id number] [employer] [place] MedicaidPO [address] [place] [id number], CATHYSelf - patient is the [id number] 2022 Wrap ABD CareSourcePO [address] [place] [address] [id number], CATHYSelf - patient is the insured 2022 Medical (General) History Medical History History ICD Code GRAN MAL SEIZURES DIABETES 2NEUROPATHYHTNHEADACHESSurgical History Surgery Date(Month/Year) TOTAL HYSTERECTOMY 2006 GALL BLADDER LAPRASCOeye csfqcrs0260Pvwcxhltqptzjxi History Reason Date(Month/Year) toe infection 08/2022
--- OUTSIDE RECORDS SUMMARY | 2025-05-23 21:28 | XMS_ITS | Encounter Summary ---
Author Organization [facility] Address [address] [place] [address] Care Team Providers Care Dance Instructor Name Role Phone Mk Conti MD Unavailable [phone] Kyle Lopez MD Primary Care Provider [phone] Encounter Details DateTypeDepartmentCare Team (Latest Contact Info)Itlvegbnjep67/30/2025Orders Only Neurosurgery [address] [place] [address] Mary Lou Deluna, YARD TRUCK DRIVER [address] [facility] [place] [address] Antiplatelet or antithrombotic long-term use (Primary Dx); Easy bruising Social History Tobacco UseTypesPacks/DayYears UsedDateSmoking Tobacco: Every [...] RecordedIn the past 12 months has the [employer], oil, or water [employer] threatened to shut off services in your [...] homeless or living in a correction (including now)? No05/16/2025Hunger Vital SignAnswerDate RecordedWithin the past 12 months, you worried that your food would run out before you got the money to buymore.Never true05/16/2025Ran Out of Food in the Last YearNot on file05/16/2025 CommentsUnknownSex and Gender InformationValueDate RecordedSex Assigned at Grbpig0105/16/2025 2:28 AM ESTLegal LstEsvagv84/29/2022 9:59 PM EDTGender Identity Tjkbog1205/16/2025 2:28 AM ESTSexual OrientationDon't know05/16/2025 2:28 AM EST documented as of this encounter Plan of Treatment DateTypeDepartmentCare Team (Latest Contact Info)Wjdviksvtic14/12/2026 8:30 AM ESTAppointment [facility] X-Ray Imaging [address] [place] [phone] Radiology, Radiologist, [address] [place] [address] 06/05/2025 9:30 AM ESTAppointment [facility] CT Imaging [address] [place] [phone] 06/05/2025 10:00 AM ESTAppointment [facility] CT Imaging [address] [place] [address] 06/05/2025 10:30 AM ESTAppointment [facility] Imaging [address] [place] [address] NameTypePriorityAssociated DiagnosesOrder ScheduleAPTTLabRoutine Antiplatelet or antithrombotic long-term use Easy bruising Expected: 05/23/2025 (Approximate), Expires: 05/23/2026Protime-INRLabRoutine Antiplatelet or antithrombotic long-term use Easy bruising Expected: 05/23/2025 (Approximate), Expires: 05/23/2026documented as of this encounter Visit Diagnoses Diagnosis Antiplatelet or antithrombotic long-term use- Primary Encounter for long-term (current) use of antiplatelets/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 Easy bruising Other symptoms involving skin and integumentary tissues documented in this encounter Care Teams Team MemberRelationshipSpecialtyStart DateEnd Kyle Lopez MD [address] [place] [address] [address] [facility] [place] [phone] PCP - CfifcqtUzvesilgvggukgls50/23/25 Mk Conti MD [address] [facility] [place] [address] Orthopaedic Surgery10/05/24documented as of this encounter
--- OUTSIDE RECORDS SUMMARY | 2025-05-23 21:29 | XMS_ITS | Clinical Summary ---
Author Organization [facility] Address [address] [facility] [place] [address] Care Team Providers Care Healthcare Management Name Role Phone Unavailable Primary Care Provider Unavailabl e Source Comments The following information is NOT included in Care Everywhere downloads:Psychiatric notes, ECG results, Cardiac Rehab notes, Pulmonary Function notes, data from SmartForms (includes but not limited toPregnancy data,audiograms, eye exams, pre-surgical evaluation notes, well-child exam data).[facility] Immunizations ImmunizationAdministration DatesNext DueInfluenza, injectable, quadrivalent, preservative (UBM=796)02/22/2018Influenza, injectable, quadrivalent, preservative free (IOA=431)03/06/2021,06/05/2020Influenza, injectable, trivalent, preservative (TDL=793)04/09/2022,05/25/2020,03/26/2014Influenza, unspecified formulation (CVX=88)05/28/2015Pneumococcal polysaccharide 23 Valent (PPSV23) (CVX=33)03/06/2021Tdap (QAD=814)02/21/2022 Social History Tobacco UseTypesPacks/DayYears UsedDateSmoking Tobacco: Never Assessed CommentsNoSex and Gender InformationValueDate RecordedSex Assigned at BirthNot on fileLegal QhiYdnuvy42/31/2019 4:24 PM EDTGender IdentityNot on fileSexual OrientationNot on file Last Filed Vital Signs Vital SignReadingTime TakenCommentsBlood Klrjssng20/51010/07/2022 6:43 AM EDT Ylcdm5117/16/2023 6:43 AM QSXSmvokuyllex82.4 ??C (97.6 ??F)10/06/2022 7:48 PM EDTRespiratory Uyql980710/06/2022 7:48 PM EDTOxygen Ftfgkwjkei51%10/07/2022 6:43 AM EDTInhaled Oxygen Concentration--Weight--Height--Body Mass Index-- Plan of Treatment Health MaintenanceDue DateLast VhxsVpmoxlznFvfytwczdma1977HIV Test 1992Hepatitis C Rfzpeqlt12/25/1995Hepatitis A (HAV) Vaccine (optional start 19+ years)1996Hepatitis B (HBV) Vaccine (1 of 3 - 19+ 3-dose series) 1996Pap Smear04/18/19982215Pzvbkwczpzz62/25/2017CRC Yxtwclcfa03/25/2022 Cologuard (Stool DNA)2022FIT2022OVID-19 Vaccine (2 - 2024- season)Influenza Vaccine (#1), 03/06/2021, 06/05/2020, Additional history szpxjmQbtkliwybsh36/13/2027 03/06/2022, 05/25/2015, 09/29/2013Shingles (RZV) Vaccine (1 of 2)2027 Tetanus (Td or Tdap) Qqniabc71neumococcal Vaccine(s)Aged Out 03/06/2021No longer eligible based on patient's age to complete this topicTdap BepornuIriqsxjrc81/30/2022 Insurance
--- OUTSIDE RECORDS SUMMARY | 2025-05-23 21:29 | XMS_ITS | Clinical Summary ---
Author Organization [facility] Address [address] [place] [address] Care Team Providers Care Roller Checker Name Role Phone Mk Conti MD Unavailable [phone] Kyle Lopez MD Primary Care Provider [phone] Allergies Active AllergyReactionsCriticalityNoted GxusKqhclonsAbgkoztudamboIdzgf06/10/2025 Adhesive Tape-WskhjszysHazahsq71/21/2018CodeineOther,Hives,Rash,GI intolerance High02/16/2008 Get very angry Other reaction(s): Aggressive Behavior hives FentanylGI intolerance,Hallucinations,Nausea And Vomiting,AfylpDmvy70/01/2019 Other Reaction(s): Renal Failure VxiglbarsCbvzp08/23/2025 Kidney problems Iodinated Contrast KzjkoQuooHvd71/23/1385YeklvRlpzp38/23/2025LinezolidGI intolerance,Nausea And Vomiting,NscpvWapl13/28/2023 Other Reaction(s): Renal Failure LorazepamHallucinations,BkpsfZsxq85/17/2022 Other Reaction(s): Other (See Comments), Renal Failure Nsaids (Non-Steroidal Anti-Inflammatory Drug)Fqfeeab0303/30/2017 shuts my kidney's down HiovnibodtsuqhefMvghi62/11/2024 Other Reaction(s): Other (See Comments) She reports Compazine made her feel anxious and grumpy She reports Compazine made her feel anxious and grumpy PropoxypheneGI intolerance,Nausea And XxgnefaiPkf70/01/2016Propoxyphene N-AcetaminophenGI intolerance,EhuhfElilmu28/24/2008TramadolGI intolerance,Other, Hives,Rash,RhygisvHyky98/23/2012 Other Reaction(s): Other (See Comments) seizures seizures VancomycinOther,SvwunEnlr33/30/2017 Other Reaction(s): Contraindication-Medical Surgical, KIDNEY & URINARY TRACT DISORDERS EXCEPT RENAL FAILURE W MAJOR CC, Other (See Comments) Shut down her kidneys Shuts my kidneys down Shuts kidney down Shuts my kidneys down Shut down her kidneys Shuts kidney down Medications MedicationSigDispense QuantityRefillsLast FilledStart DateEnd DateStatus oxyCODONE-acetaminophen (Percocet) 7.5-325 mg tablet Take 1 tablet by mouth every 8 (eight) hours if needed for severe pain (8-10 pain score).Active QUEtiapine (SEROquel) 400 mg tablet Take 800 mg by mouth at bedtime.Active pregabalin (Lyrica) 75 mg capsule Take 75 mg by mouth two times daily.Active levETIRAcetam (Keppra) 1,000 mg tablet Take 1,000 mg by mouth two times daily.Active tiZANidine (Zanaflex) 4 mg capsule Take 4 mg by mouth if needed in the morning, at noon, and at bedtime.Active aspirin 81 mg EC tablet Take 81 mg by mouth in the morning.Active insulin lispro (HumaLOG) 100 unit/mL injection Inject under the skin. With insulin pump up to 80 units dailyActive atorvastatin (Lipitor) 20 mg tablet Indications:NSTEMI (non-ST elevated myocardial infarction) (CMS/HCC)Take 1 tablet (20 mg) by mouth at bedtime. 30 tablet 5Active Additional Information Patient not taking.Reported on 05/16/2025 DexRoyalCactus G7 Sensor device CHANGE EVERY 10 DAYSActive Trulicity 0.75 mg/0.5 mL pen injector Inject 0.75 mg under the skin 1 (one) time per week. Active hydrOXYzine pamoate (Vistaril) 100 mg capsule Take 100 mg by mouth at bedtime.Active Klayesta 100,000 unit/gram powder Apply 1 Application topically two times daily. For 14 daysActive nystatin (Mycostatin) cream Apply 1 Application topically two times daily. Under breastsActive predniSONE (Deltasone) 50 mg tablet Indications:Contrast media allergyTake 1 tablet 13 hours before, 7 hours before, and 1 hour before the myelogram. 3 tablet 5Active diphenhydrAMINE (BENADryl) 50 mg tablet Indications:Contrast media allergyTake 1 tablet (50 mg) by mouth 1 (one) time. One hour prior to myelogram. 1 tablet 05/16/2025tive levothyroxine (Synthroid, Levoxyl) 75 mcg tablet Indications:Acquired hypothyroidismTake 1 tablet (75 mcg) by mouth before breakfast. 30 tablet ctive metoprolol succinate XL (Toprol-XL) 50 mg 24 hr tablet Indications:Coronary artery disease involving coushatta coronary artery of coushatta heart without angina pectorisTake 1 tablet (50 mg) by mouth in the morning. Do not crush or chew. 30 tablet ctive ondansetron (Zofran) 4 mg tablet Take 4 mg by mouth every 8 (eight) hours if needed for nausea or vomiting. 05/16/2025Discontinued(Therapy completed) pantoprazole (ProtoNix) 40 mg EC tablet Take 40 mg by mouth before breakfast. Do not crush, chew, or split.05/16/2025 Discontinued diphenhydrAMINE-acetaminophen (Tylenol PM) 25-500 mg per tablet Take 1 tablet by mouth if needed at bedtime for sleep.05/16/2025Discontinued (Therapy completed) levothyroxine (Synthroid, Levoxyl) 75 mcg tablet Take 75 mcg by mouth before breakfast.05/17/2025Discontinued loratadine (Claritin) 10 mg tablet Take 10 mg by mouth in the morning.05/16/2025Discontinued(Therapy completed) nortriptyline (Pamelor) 25 mg capsule Take 25 mg by mouth at bedtime.05/16/2025Discontinued(Therapy completed) citalopram (CeleXA) 40 mg tablet Take 40 mg by mouth in the morning.05/16/2025Discontinued(Therapy completed) brexpiprazole (Rexulti) 1 mg tablet Take 1 mg by mouth in the morning.05/16/2025Discontinued(Therapy completed) hydrOXYzine HCL (Atarax) 50 mg tablet Take 50 mg by mouth every 6 (six) hours if needed for itching.05/16/2025 Discontinued(Therapy completed) metoprolol succinate XL (Toprol-XL) 50 mg 24 hr tablet Take 50 mg by mouth in the morning. Do not crush or chew.05/17/2025Discontinued urea (Carmol) 40 % cream Apply topically two times daily.05/16/2025Discontinued(Therapy completed) polyethylene glycol (Glycolax) 17 gram packet Take 17 g by mouth if needed each day.05/16/2025Discontinued(Therapy completed) paliperidone (Invega) 9 mg 24 hr tablet Take 9 mg by mouth in the morning. Do not crush, chew, or split.05/17/2025 Discontinued(Stop Taking at Discharge) lamoTRIgine (LaMICtal) 25 mg tablet please see attached for detailed quxgggvfde46/24/2025Discontinued(Stop Taking at Discharge) clotrimazole (Lotrimin) 1 % cream Apply 1 Application topically two times daily. To under xbolmou98/23/2025 Discontinued(Entered in Error) Active Problems ProblemNoted DateDiagnosed DateLower extremity tiwbwvrc77/23/2025 Assessment & Plan (05/16/2025 4:48 AM EST): -Same measures as above - Patient will need an MRI of the brain - Neurosurgery consultation SEKOU Unable to duikhfoq44/23/2025 Assessment & Plan (05/16/2025 4:48 AM EST): -Fall precaution very important - Support during ambulation or even keep patient bed confined - PT/OT - Social service for discharge planning when appropriate Uncontrolled type 2 diabetes mellitus with ncwymzktlrgfc26/23/2025 Assessment & Plan (05/16/2025 4:48 AM EST): -Monitor patient's blood sugar ACHS - Use regular insulin for sliding scale coverage - Commence patient on glargine 25 mg every 12 hours - If blood sugar does not improve may use insulin drip - Obtain A1c - Resume and reconcile home medications as appropriate CAD (coronary artery disease)05/16/2025 Assessment & Plan (05/16/2025 4:48 AM EST): -History of CAD - Status post ME - Resume aspirin, atorvastatin, metoprolol - Placed on telemetry Hx of myocardial fzqyxjhrad37/23/2025 Assessment & Plan (05/16/2025 4:48 AM EST): -Old, currently no chest pain - Will monitor patient's cardiac status DVT prophylaxis using VTE protocols per [facility] GI protection Protonix Monitor labs and correct all abnormalities Placed on sliding scale Consult neurosurgery I discussed the plan of care with the patient and her bedside RN and there seems to be agreement. Degeneration of lumbar or lumbosacral intervertebral disc05/16/2025 Assessment & Plan (05/16/2025 4:48 AM EST): -Pain control - May need to place patient on steroids, muscle relaxers, as well as pain medication. - These have already been reconciled including Lyrica, tizanidine, Seroquel and Percocet Fall05/16/2025 Assessment & Plan (05/16/2025 4:48 AM EST): -Send measures as above Inability to ambulate due to hip05/16/20252404Lfefwovxqoso57/12/2025 Assessment & Plan (10/04/2024 12:14 PM EDT): - Ca 8.2 today - daily CBC Consult PT/OT/BUYER ASSISTANT Will DC ene Assessment & Plan (10/03/2024 3:02 PM EDT): Ca 6.6 - albumin 2.5, corrected calcium 7.4 - will give one gram of calcium Type 2 diabetes mellitus with circulatory disorder, with long-term current use of rhgrkcf6510/02/2024 Assessment & Plan (10/04/2024 12:14 PM EDT): [...] units bid - currently ISS Sick sinus hdotmfek70/11/2025 Assessment & Plan (10/04/2024 12:14 PM EDT): - s/p pacemaker - interrogation ordered- asked RN to call rep Assessment & Plan (10/03/2024 10:35 AM EDT): - s/p pacemaker - interrogation ordered Assessment & Plan (10/02/2024 11:21 AM EDT): - s/p pacemaker - interrogation ordered Acute renal failure with acute tubular necrosis superimposed on stage 3a chronic kidney wrofofd4110/02/2024 Assessment & Plan (10/04/2024 12:14 PM EDT): -Cr improved today to 1.75 - renal US negative - neph consulted Assessment & Plan (10/03/2024 3:02 PM EDT): -Cr improved today to 1.89 - renal US negative - neph consulted Assessment & Plan (10/02/2024 11:21 AM EDT): - Cr 3.0 today - neph consulted Dyaouqd6110/02/2024 Assessment & Plan (10/04/2024 12:14 PM EDT): - neuro consulted at admission - Continue LEV 1g BID at least until outpt neuro follow up - Patient will need referral to [facility] neurology (for epileptologist) at discharge. - Recommend PT/OT. - Neuro will sign off. Assessment & Plan (10/03/2024 10:35 AM EDT): - neuro consulted at admission - Continue LEV 1g BID at least until outpt neuro follow up - Patient will need referral to [facility] neurology (for epileptologist) at discharge. - Recommend PT/OT. - Neuro will sign off. Assessment & Plan (10/02/2024 11:11 AM EDT): - neuro consulted at admission - Continue LEV 1g BID at least until outpt neuro follow up - Patient will need referral to [facility] neurology (for epileptologist) at discharge. - Recommend PT/OT. - Neuro will sign off. 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 No need for [...] Cardiology team will continue to follow Encounters DateTypeDepartmentCare GczuUdrbvucknzn34/30/2025Orders Only Neurosurgery [address] [place] [phone] Mary Lou Deluna CNP Antiplatelet or antithrombotic long-term use (Primary Dx); Easy rpxddehu29/30/2025Orders Only [facility] CT Imaging [address] [place] [phone] Small, Comfort, ARRT Spondylosis without myelopathy or radiculopathy, lumbar region (Primary Dx); Other symptoms and signs involving the musculoskeletal system; Unspecified fall, initial encounter; Lumbago with sciatica, left side; Other chronic pain05/16/2025 2:28 AM EST - 05/17/2025 2:30 PM ESTHospital Encounter [facility] 6AB Ortho Surgery [address] [place] [address] Jairo Bean MD Fawwad, Shaikh, MD Inability to ambulate due to hip (Primary Dx); Weakness of lower extremity, unspecified laterality; Fall, initial encounter; Arm weakness; Lumbar spondylosis; Chronic low back pain with bilateral sciatica, unspecified back pain laterality; Contrast media allergy; Acquired hypothyroidism; Coronary artery disease involving coushatta coronary artery of coushatta heart without angina pectoris Discharge Disposition: Home or Self Care ()05/16/2025Travelfrom Last 3 Months Family History Medical HistoryRelationNameCommentsDiabetesFatherHeart attackFatherHeart failure FatherCOPDMotherStrokeMotherRelationNameStatusCommentsFatherMother Social History Tobacco UseTypesPacks/DayYears UsedDateSmoking Tobacco: Every DayCigarettes Smokeless Tobacco: Never Tobacco Cessation:Ready to Q uit: Not Asked; Counseling Given: Not Answered Alcohol UseStandard Drinks/WeekCommentsNever0 (1 standard drink = 0.6 oz pure alcohol)Humiliation, Afraid, Rape, and Kick questionnaireAnswerDate Recorded Within the last year, have you been afraid of your partner or ex-partner?No 05/16/2025Emotionally AbusedNot on file05/16/2025Physically AbusedNot on file 05/16/2025Sexually AbusedNot on file05/16/2025Overall Financial Resource Strain (CARDIA)AnswerDate RecordedHow hard is it for you to pay for the very basics like food, housing, medical care, and heating?Not hard at all05/16/2025HC UtilitiesAnswerDate RecordedIn the past 12 months has the electric, gas, oil, or water company threatened to shut off services in your home?No05/16/2025 TransportationAnswerDate RecordedIn the past 12 months, has lack of transportation kept you from medical appointments or from getting medications?No 05/16/2025Lack of Transportation (Non-Medical)Not on file05/16/2025Housing Stability Vital SignAnswerDate RecordedIn the last 12 months, was there a time when you were not able to pay the mortgage or rent on time?No05/16/2025Number of Times Moved in the Last YearNot on file05/16/2025t any time in the past 12 months, were you homeless or living in a usp (including now)?No05/16/2025 Hunger Vital SignAnswerDate RecordedWithin the past 12 months, you worried that your food would run out before you got the money to buymore.Never true05/16/2025 Ran Out of Food in the Last YearNot on file05/16/2025CommentsUnknownSex and Gender InformationValueDate RecordedSex Assigned at BnumsLugvdr41/23/2025 2:28 AM ESTLegal IfyHixszc72/29/2022 9:59 PM EDTGender EbzenqhiGwoqra00/23/2025 2:28 AM ESTSexual OrientationDon't know05/16/2025 2:28 AM EST Last Filed Vital Signs Vital SignReadingTime TakenCommentsBlood Bjohnbfb84/5905/17/2025 9:31 AM EST Dwqsz754305/17/2025 9:31 AM JQGUrucsfchykp12.4 ??C (97.5 ??F)05/17/2025 7:17 AM ESTRespiratory Keip996307/18/2024 7:17 AM ESTOxygen Gjbibkglfo13%05/17/2025 9:31 AM ESTInhaled Oxygen Concentration--Yfymtf154 kg (285 lb 11.5 oz)05/17/2025 4:06 AM FHIQeictx893.5 cm (5' 2 )05/16/2025 3:00 AM ESTBody Mass Index52.26107/17/2024 3:00 AM EST Plan of Treatment DateTypeDepartmentCare Team (Latest Contact Info)Jcsgqvpnqno41/12/2026 8:30 AM ESTAppointment [facility] X-Ray Imaging [address] [place] [address] Radiology, Radiologist, [address] [place], [place] [id number] 06/05/2025 9:30 AM ESTAppointment [facility] CT Imaging [address] [place] [address] 06/05/2025 10:00 AM ESTAppointment [facility] CT Imaging [address] [place] [address] 06/05/2025 10:30 AM ESTAppointment [facility] CT Imaging [address] [place] [address] Health MaintenanceDue DateLast DoneCommentsCT Kdihomgkpquc1977Colonoscopy 1977Colorectal Cancer Cqerojpny1977FIT-DNA1977FIT1977 FOBT1977 3175Tymvklmjuzqpb1977Diabetes: Retinopathy Khlxjnrej87/25/1987 Depression Orxmvrxts34/25/1989Hepatitis B Vaccines (1 of 3 - 19+ 3-dose series) 1996Pap Smear1998Cervical Cancer Efhsyxwxu31/25/2007HPV/Cotest 04/18/20079491Cvrzipiju81/25/2017COVID-19 Vaccine ( season)2025 02/16/2021, 02/16/2021, 12/02/2020Influenza Vaccine (#1)509/, 05/06/2023, 04/09/2022, Additional history existsDiabetes: Hemoglobin A1C 612/, 10/01/2024, 08/02/2024, Additional history existsZoster Vaccines (1 of 2)7Adult Urbmgzr342Pneumococcal Vaccine: Pediatrics (0 to 5 Years) and At-Risk Patients (6 to 64 Years)Completed 05/06/2023, 03/29/2023, 03/06/2021, Additional history existsHIB VaccinesAged OutNo longer eligible based on patient's age to complete this topicHPV Vaccines Aged OutNo longer eligible based on patient's age to complete this topicIPV VaccinesAged OutNo longer eligible based on patient's age to complete this topic Meningococcal B VaccineAged OutNo longer eligible based on patient's age to complete this topicMeningococcal VaccineAged OutNo longer eligible based on patient's age to complete this topicRotavirus VaccinesAged OutNo longer eligible based on patient's age to complete this topic Procedures Procedure NamePriorityDate/TimeAssociated DiagnosisCommentsPOCT GLUCOSE METER UNSOLICITED ROSMYVFOseeguy76/24/2025 11:13 AM EST POCT GLUCOSE METER UNSOLICITED VQBDLNBKnlikdc58/24/2025 7:07 AM EST CBC WITH AUTO OSZLINZCYAPGHqiapyy25/24/2025 6:28 AM EST BASIC METABOLIC AOBAEMcdqltu85/24/2025 6:28 AM EST CBC AND FFEFURGEZRCCBzcnkbj31/24/2025 6:28 AM EST POCT GLUCOSE METER UNSOLICITED YCNYBJNKanoilt35/23/2025 8:39 PM EST POCT GLUCOSE METER UNSOLICITED ULZENSNOgspxkr06/23/2025 4:26 PM EST POCT GLUCOSE METER UNSOLICITED EVQBVLZGfvflfq64/23/2025 11:29 AM EST BLOOD GAS, GDFTWVWVPT66/23/2025 10:41 AM EST BETA RVTPYDMJXOKYTENEFUC00/23/2025 10:41 AM EST BASIC METABOLIC OPCQHLZOK56/23/2025 10:41 AM EST POCT GLUCOSE METER UNSOLICITED QREWCAKRkseube82/23/2025 9:35 AM EST POCT GLUCOSE METER UNSOLICITED YNLYPYTYenumxw66/23/2025 7:11 AM EST HEMOGLOBIN T0CZih-Oy45/23/2025 6:08 AM EST XSYLgriakd63/23/2025 6:08 AM EST POCT GLUCOSE METER UNSOLICITED TNWJQNWZawvhlw09/23/2025 4:11 AM EST from Last 3 Months Results * (ABNORMAL) POCT glucose meter (05/17/2025 11:13 AM EST) Only the most recent of8 resultswithin the time period is included. ComponentValueRef RangeTest MethodAnalysis TimePerformed AtPathologist Signature Glucose STF432(H)70 - 105 mg/dL05/17/2025 11:24 AM [facility] ([facility]) Comment:uqsppta93Wmqkemrj (Source)Anatomical Location / LateralityCollection Method / VolumeCollection TimeReceived TimeBloodCapillary blood specimen / Crrjrnt5405/17/2025 11:13 AM EST05/17/2025 11:24 AM EST Narrative [facility] ([facility]) - 05/17/2025 11:24 AM EST Waived Testing in the ED is performed under the ED CLIA certificate #[id number]. Authorizing ProviderResult TypeResult StatusShaikh Stan TOBAR BLOOD ORDERABLES Final ResultPerforming OrganizationAddressCity/State/ZIP CodePhone Number [facility] ([facility]) [address] [place] [address] * (ABNORMAL) CBC auto differential (05/17/2025 6:28 AM EST)ComponentValueRef RangeTest MethodAnalysis TimePerformed AtPathologist SignatureAuto WBC11.60(H) 4.00 - 10.60 10*3/uL05/17/2025 7:04 AM [facility] ([facility])RBC3.21(L) 3.80 - 5.00 10*6/uL05/17/2025 7:04 AM [facility] ([facility])Hemoglobin 9.7(L)12.0 - 15.0 g/dL05/17/2025 7:04 AM [facility] ([facility]) Geauokxbxr96.0(L)36.0 - 45.0 %05/17/2025 7:04 AM [facility] ([facility]) MCV90.382.0 - 98.0 fL05/17/2025 7:04 AM [facility] ([facility])MCH30.2 27.0 - 33.0 pg05/17/2025 7:04 AM [facility] ([facility])MCHC33.432.0 - 35.0 g/dL05/17/2025 7:04 AM [facility] ([facility])RDW13.211.5 - 15.0 % 05/17/2025 7:04 AM [facility] ([facility])Neutrophils %70.340.0 - 72.0 % 05/17/2025 7:04 AM [facility] ([facility])Lymphocytes %22.720.0 - 45.0 % 05/17/2025 7:04 AM [facility] ([facility])Monocytes %5.55.0 - 12.0 % 05/17/2025 7:04 AM [facility] ([facility])Eosinophils %0.90.0 - 6.0 % 05/17/2025 7:04 AM [facility] ([facility])Basophils %0.30.0 - 1.0 % 05/17/2025 7:04 AM [facility] ([facility])Neutrophils Absolute8.15(H) 1.60 - 7.60 10*3/uL05/17/2025 7:04 AM [facility] ([facility])Lymphocytes Absolute2.631.20 - 4.00 10*3/uL05/17/2025 7:04 AM [facility] ([facility])Monocytes Absolute0.640.10 - 1.00 10*3/uL05/17/2025 7:04 AM [facility] ([facility])Eosinophils Absolute0.100.00 - 0.50 10*3/uL05/17/2025 7:04 AM [facility] ([facility])Basophils Absolute0.040.00 - 0.20 10*3/uL 05/17/2025 7:04 AM [facility] ([facility])Oajuplurp445954 - 400 10*3/uL 05/17/2025 7:04 AM [facility] ([facility])nRBC %0.00 %05/17/2025 7:04 AM [facility] ([facility])Immature Granulocytes %0.30.0 - 1.0 %05/17/2025 7:04 AM [facility] ([facility])Immature Granulocytes Absolute0.040.00 - 0.20 10*3/uL05/17/2025 7:04 AM [facility] ([facility])Specimen (Source) Anatomical Location / LateralityCollection Method / VolumeCollection Time Received TimeBloodBlood sample taken from central line / UnknownExisting Catheter / Vmwdvhz6505/17/2025 6:28 AM EST05/17/2025 6:40 AM EST Narrative Authorizing ProviderResult TypeResult StatusShaikh Stan STEVENSLAB BLOOD ORDERABLES Final ResultPerforming OrganizationAddressCity/State/ZIP CodePhone Number [facility] ([facility]) [address] [place] [address] * (ABNORMAL) Basic metabolic panel (05/17/2025 6:28 AM EST) Only the most recent of2 resultswithin the time period is included. ComponentValueRef RangeTest MethodAnalysis TimePerformed AtPathologist Signature Waklns080(L)136 - 145 mmol/L107/18/2024 7:03 AM [facility] ([facility]) Potassium4.63.5 - 5.1 mmol/L107/18/2024 7:03 AM [facility] ([facility]) Upwylhet59470 - 107 mmol/L107/18/2024 7:03 AM [facility] ([facility])CO226 21 - 31 mmol/L107/18/2024 7:03 AM [facility] ([facility])BUN42(H)7 - 25 mg/dL05/17/2025 7:03 AM [facility] ([facility])Creatinine1.76(H)0.60 - 1.20 mg/dL05/17/2025 7:03 AM [facility] ([facility])Jesulxr617(H)70 - 100 mg/dL05/17/2025 7:03 AM [facility] ([facility])Calcium8.3(L)8.6 - 10.3 mg/dL05/17/2025 7:03 AM [facility] ([facility])Anion Gap97 - 20 mmol/L 05/17/2025 7:03 AM [facility] ([facility])eGFR35.3(L)>60.0 mL/min/1.73m*2 05/17/2025 7:03 AM [facility] ([facility])Comment:The [facility]???s estimated glomerular filtration rate (eGFR) will no longer include consideration of race in its calculation. The National Kid[employer] Foundation???s eGFR Task Force developed new recommendations for the estimation of the glomerular filtration rate in the [place] They recommend immediate implementation of the new equation refit without the race variable in all la boratories because the calculation does not include race. In addition to not including race in the calculation and reporting, it included diversity in its development, and has acceptable performance characteristics and potential consequences that do not disproportionately affect any one group of individuals. BUN/Creatinine Ratio23.9107/18/2024 7:03 AM [facility] ([facility])Specimen (Source)Anatomical Location / LateralityCollection Method / VolumeCollection TimeReceived TimeBloodBlood sample taken from central line / UnknownExisting Catheter / Lgjjzwp8105/17/2025 6:28 AM EST05/17/2025 6:40 AM EST Narrative Authorizing ProviderResult TypeResult StatusShaikh Stan TOBAR BLOOD ORDERABLES Final ResultPerforming OrganizationAddressCity/State/ZIP CodePhone Number [facility] ([facility]) [address] [place] [address] * Blood Gas, Venous (05/16/2025 10:41 AM EST)ComponentValueRef RangeTest Method Analysis TimePerformed AtPathologist SignaturepH, Ven7.347.31 - 7.41107/17/2024 11:04 AM [facility] RESPIR[facility] THERAPYpCO2, Qyv1455 - 50 mmHg05/16/2025 11:04 AM [facility] RESPIR[facility]ORY THERAPYpO2, Ita3393 - 45 mmHg05/16/2025 11:04 AM [facility] RESPIR[facility] THERAPYO2 Sat, Ven65.665.0 - 75.0 %05/16/2025 11:04 AM [facility] RESPIRATORY THERAPYHCO3, Zycygk38.7mmol/L107/17/2024 11:04 AM [facility] RESPIRATORY THERAPYOxyhemoglobin, Horntm44.5%05/16/2025 11:04 AM [facility] RESPIRATORY THERAPYpH Venous Temp Adjusted7.347.31 - 7.41107/17/2024 11:04 AM [facility] [facility] THERAPYpCO2 Venous Temp Vnzcikvw0707 - 50 mmHg05/16/2025 11:04 AM [facility] RESPIRATORY THERAPYpO2 Venous Temp Ywkrgqjk9197 - 45 mmHg 05/16/2025 11:04 AM [facility] RESPIRATORY WIJCSSMTbxbngoojge51.0??05/16/2025 11:04 AM [facility] RESPIRATORY THERAPYSpecimen (Source)Anatomical Location / LateralityCollection Method / VolumeCollection TimeReceived TimeBloodVenous blood specimen / UnknownExisting Catheter / Mkwhvjs3205/16/2025 10:41 AM EST 05/16/2025 11:01 AM EST Narrative Authorizing ProviderResult TypeResult StatusGordon Memorial HospitalMaris [facility] BLOOD ORDERABLESFinal ResultPerforming OrganizationAddressCity/State/ZIP CodePhone Number [facility] RESPIRATORY THERAPY [address] [place] [address], * Beta Hydroxybutyrate (05/16/2025 10:41 AM EST)ComponentValueRef RangeTest MethodAnalysis TimePerformed AtPathologist SignatureBeta-Hydroxybutyrate0.10 0.02 - 0.27 mmol/L107/17/2024 12:43 PM [facility] ([facility])Specimen (Source)Anatomical Location / LateralityCollection Method / VolumeCollection TimeReceived TimeBloodVenous blood specimen / UnknownExisting Catheter / Egypkpp0205/16/2025 10:41 AM EST05/16/2025 11:23 AM EST Narrative Authorizing ProviderResult TypeResult StatusJofariba YMaris AguilarMANHATTAN SURGICAL CENTER BLOOD ORDERABLESFinal ResultPerforming OrganizationAddressty/State/ZIP CodePhone Number [facility] ([facility]) [address] [place] [address] * (ABNORMAL) CBC (05/16/2025 6:08 AM EST)ComponentValueRef RangeTest Method Analysis TimePerformed AtPathologist SignatureAuto WBC15.37(H)4.00 - 10.60 10*3/uL05/16/2025 6:42 AM [facility] ([facility])RBC4.153.80 - 5.00 10*6/uL05/16/2025 6:42 AM [facility] ([facility])Eyvcobplkw54.712.0 - 15.0 g/dL05/16/2025 6:42 AM [facility] ([facility])Rutgfhxwau17.736.0 - 45.0 %05/16/2025 6:42 AM [facility] ([facility])MCV90.882.0 - 98.0 fL 05/16/2025 6:42 AM [facility] ([facility])MCH30.627.0 - 33.0 pg 05/16/2025 6:42 AM [facility] ([facility])MCHC33.732.0 - 35.0 g/dL 05/16/2025 6:42 AM [facility] ([facility])RDW13.211.5 - 15.0 %05/16/2025 6:42 AM [facility] ([facility])Upszrqqrp496108 - 400 10*3/uL05/16/2025 6:42 AM [facility] ([facility])Specimen (Source)Anatomical Location / LateralityCollection Method / VolumeCollection TimeReceived TimeBloodVenous blood specimen / UnknownExisting Catheter / Stforzb9905/16/2025 6:08 AM EST 05/16/2025 6:27 AM EST Narrative Authorizing ProviderResult TypeResult StatusBon[facility] BLOOD ORDERABLESFinal ResultPerforming OrganizationAddressCity/State/ZIP CodePhone Number [facility] ([facility]) [address] [place] [address] * (ABNORMAL) Hemoglobin A1c (05/16/2025 6:08 AM EST)ComponentValueRef RangeTest MethodAnalysis TimePerformed AtPathologist SignatureHemoglobin A1C9.0(H)4.0 - 6.0 %05/16/2025 2:50 PM [facility] ([facility])Estimated Average Glucose 212mg/dL05/16/2025 2:50 PM [facility])Specimen (Source) Anatomical Location / LateralityCollection Method / VolumeCollection Time Received TimeBloodVenous blood specimen / UnknownExisting Catheter / Unknown 05/16/2025 6:08 AM EST05/16/2025 6:27 AM EST Narrative Authorizing ProviderResult TypeResult StatusPreston Frandy Neelima BLOOD ORDERABLESFinal ResultPerforming OrganizationAddressCity/State/ZIP CodePhone Number [facility] ([place]) [address] [place] [address] from Last 3 Months Insurance Advance Directives * Full Code (Latest Code Status on File) Date ActivatedDate RjqywzwojzrMconrsht11/23/2025 3:22 AM05/17/2025 4:58 PM * Full Code Date ActivatedDate InactivatedComments10/01/2024 9:44 AM10/05/2024 7:01 PM Care Teams Team MemberRelationshipSpecialtyStart DateEnd Date Kyle Lopez MD [address] [place] [address] [address] [facility] [place] [address] PCP - SbumktiHcxfjmjzeandrldk80/23/25 Mk Conti MD [address] [place] [address] Orthopaedic Surgery10/05/24
--- OUTSIDE RECORDS SUMMARY | 2025-05-23 21:29 | XMS_ITS | Clinical Summary ---
Author Organization [facility] Address [address], [address] [place] [address] Care Team Providers Care Disability Program Navigator Name Role Phone George Rob DO Primary Care Provider [phone] Allergies Active AllergyReactionsCriticalityNoted DateCommentsLorazepamHallucinations 2CodeineOther (See Comments)05/25/2015 Get very angry IodidesOther (See Comments)High02/16/2017 Renal compromise PropoxypheneNausea And RcjnagzoGqj22/01/2016Ketorolac TromethamineOther (See Comments)05/25/2015 Messes with seizures MixofvpbFpozm66/01/2016VancomycinOther (See Comments)High02/16/2017 Shuts my kidneys down Medications [...] 5 mg by mouth dailyActive nystatin (MYCOSTATIN) 167209 UNIT/GM cream Apply topically 2 times daily Apply topically 2 times daily.Active nystatin (MYCOSTATIN) 028324 UNIT/GM powder Apply topically 4 times daily [...] per patientActive Active Problems ProblemNoted DateDiagnosed DateSeizure hjflhgje41/01/5618Yblllzm13/01/2016Visual heiwyst3705/25/2015Type 2 diabetes mellitus with biohtir4805/25/2015 Overview (02/22/2025): Problem List Diagnosis Replacement Utility 02/23/2024 Replacing diagnoses that were inactivated after the 02/22 regulatory import Biueaayxqbsv70/01/2016Nausea and /01/2966Mmtzmqev23/01/2016Sciatica of left side05/25/2015Non-intractable vomiting with nauseaPsychogenic syncope Pacemaker Immunizations ImmunizationAdministration DatesNext DueInfluenza Virus Dorxzft4905/28/2015 Family History Medical KppjypeHzfhdmhmUewwEeacknngRekvxXspwqbk0lzgjs diseaseDiabetesFatherHeart DiseaseFatherHigh Blood PressureFatherOtherMotherepilepsyRelationNameStatus NqihxnheBbwaieu4FvqjeSswlzdMkcemMbkpgdWrcgz Social History Tobacco UseTypesPacks/DayYears UsedDateSmoking Tobacco: FormerCigarettesQuit: 06/25/2015Smokeless Tobacco: Former Tobacco Cessation:Counseling Given: Not Answered Alcohol UseStandard Drinks/WeekCommentsNo0 (1 standard drink = 0.6 oz pure alcohol)CommentsNoSex and Gender InformationValueDate RecordedSex Assigned at BirthNot on fileLegal PqoMyyjmy82/08/2013 11:49 PM ESTGender IdentityNot on fileSexual OrientationNot on file Last Filed Vital Signs Vital SignReadingTime TakenCommentsBlood Agohvtly877/7507 3:56 PM EDT Johzg46972/17/2022 3:56 PM HLYUhxmqunrlae24 ??C (98.6 ??F)12/08/2021 3:19 PM EDT Respiratory Wuuo0953 3:56 PM EDTOxygen Opasxibwkv61%12/08/2021 3:56 PM EDTInhaled Oxygen Concentration--Ghmgve413.4 kg (250 lb)12/08/2021 3:19 PM EDT Volumc875.5 cm (5' 2 )12/08/2021 3:19 PM EDTBody Mass Index45.7307 3:19 PM EDT Plan of Treatment Not on file Insurance Advance Directives * Full Code (Latest Code Status on File) Date ActivatedDate InactivatedComments05/25/2015 10:03 PM05/28/2015 9:21 PM Care Teams Team MemberRelationshipSpecialtyStart DateEnd Date George Rob DO [address] [place] [address] PCP - GeneralFamily Medicine05/28/15
--- OUTSIDE RECORDS SUMMARY | 2025-05-23 21:29 | XMS_ITS | Clinical Summary ---
Author Organization [facility] Address [address] [place] [address] Care Team Providers Care Metal Bending Machine Operator Name Role Phone Cherelle Fierro MD Unavailable [phone] Geo Leach MD Primary Care Provider [phone] George Rob DO Unavailable Unavailable Allergies Active AllergyReactionsCriticalityNoted DateComments*Adhesive Tape07/15/2017 Codeine And RelatedAggressive FajmnbmuDsgxui15/24/2008Propoxyphene N-ApapNausea and JxjtowgbUwnnlt86/24/2008Dye Halfway Red 3 (Erythrosine)01/21/2017 IV DYE shuts down my kidneys FentanylRenal PwrxqvvWwqw87/17/2024IbuprofenRenal DdnfpmuCdnh44/17/2024Iodides High02/16/2017 Other reaction(s): Other (See Comments) Renal compromise Latex05/01/2015 Other reaction(s): Dermatitis LinezolidRenal AsszgwhCxal25/17/2024LorazepamRenal FackokoMqyp74/17/2024Nsaids 03/30/2017 shuts my kidney's down Ketorolac Dvicvrmtrfmm99/30/2017 Unsure of reaction TiuknipxUaxlfwwaHueb28/23/5724Dtfounqljo93/30/2017 Shut down her kidneys Medications MedicationSigDispense QuantityRefillsLast [...] tablet by mouth daily.Active Ergocalciferol 1.25 MG (56976 UT) capsule Take 1 capsule by mouth [...] diabetic polyneuropathy, with long-term current use of lgnpztf6408/25/2017Type 2 diabetes mellitus with retinopathy, with long-term current use of yirsprn7208/25/2017 Ifcpxtkahedvq76/07/2017Mixed badkyiefcpiaxx11/07/2017 Assessment & Plan (03/31/2017 4:00 PM EST): Continue statin Benign fppllhiiwodf85/07/2017 Assessment & Plan (03/31/2017 4:01 PM EST): Moderately controlled Continue lisinopril and losartan Hekrdcshfpw76/07/2017 Assessment & Plan (03/31/2017 4:02 PM EST): Continue synthroid. Jrlmjhsgfpffc89/07/2017 Assessment & Plan (03/31/2017 4:07 PM EST): History of noncompliance with her medications per records and local pharmacy Her local pharmacy packages her pills to encourage compliance Spoke with her pharmacy and PCP office at length to clarify her current medication list. 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 S/P successful Extraction of PPM and implant of MRI PPM 03/30 without complications. Post procedure CXR: no pneumothorax Device interrogation normal Device teaching and F/U appointment provided by Device RN. Patient has a PMH of frequent wound infections: Endocrine consulted for tight BG control: wound healing. Bipolar xwnoaqowcj18/12/2009 Assessment & Plan (03/31/2017 3:59 PM EST): Continue home regime of lithium BID and seroquel Q Anxiety state, zasimoaeoif44/24/2008Headache(784.0)02/16/2008 Overview (02/03/2009): Multifactorial 2/2 migraines, Tension-THIBODEAUX. Scheduled for MRI on multiple occasions to eval for pseudotumor but pt has not followed through. Resolved Problems ProblemNoted DateDiagnosed DateResolved DateLeft ear pain Uitdypx90Pain in joint, ankle and foot Other dyspnea and respiratory objqgscmqyy35Nausea alone Vomitingbdominal pain, other specified site Family History Medical HistoryRelationNameCommentsCoronary Artery DiseaseFatherDiabetesFather Coronary Artery DiseaseOtherDiabetesOtherHypertensionOtherRelationNameStatus CommentsFatherAliveMotherAliveOther Social History Tobacco UseTypesPacks/DayYears UsedDateSmoking Tobacco: FormerCigarettes0.315 11/22/1996 - 11/23/2011Smokeless Tobacco: Never Tobacco Cessation:Counseling Given: Not Answered Comments:recently restarted Alcohol UseStandard Drinks/WeekCommentsNo0 (1 standard drink = 0.6 oz pure alcohol)CommentsNoSex and Gender InformationValueDate RecordedSex Assigned at BirthNot on fileLegal ZadKuhryu53/03/2013 6:28 AM ESTGender Identity FemaleSexual OrientationNot on file Last Filed Vital Signs Vital SignReadingTime TakenCommentsBlood Doydbfgn954/9906/ 3:47 PM EDT Wgqvq3819 3:47 PM YYDPxtimwpcpos45.7 ??C (98 ??F)09/01/2023 2:00 PM EDT Respiratory Xfab7101 2:00 PM EDTOxygen Luhuwmvmws73%09/01/2023 2:00 PM EDTInhaled Oxygen Concentration--Ahtyxg06.4 kg (179 lb 7.3 oz)04/01/2017 3:41 AM KJXEljljw074.5 cm (5' 2 )03/30/2017 5:00 PM ESTBody Mass Index32.8203/30/2017 5:00 PM EST Plan of Treatment DateTypeDepartmentCare Team (Latest Contact Info)Gcslmnbpsra20/27/2026 8:00 AM EDTOffice Visit [facility] [address] [place] [address] Geo Leach MD [address] [place] [address] Health MaintenanceDue DateLast DoneCommentsDIABETIC FOOT EXAM1977HEPATITIS C VIRUS BXGXAGOZH56/25/6543ZMH1977HIV SCREENING UQBPQTIFDW45/25/1992HEP B VACCINE (1 of 3 - 19+ 3-dose series)1996CERVICAL CANCER SCREENING COCMDLXURA49/25/1998URINE MICROALBUMIN TESTLIPIDS06/30/2009 06/30/2008MAMMOGRAM SCREENING WZQBMAEXTG48/25/2510FJXFVJGFK76, 03/31/2017, 03/31/2017, Additional history existsCOLORECTAL CANCER SCREENING TXOJCHZAMW40/25/2022EYE EXAM/OVID-19 VACCINE (2 - 2025-26 season)/INFLUENZA VACCINE (#1)509/, 05/06/2023, 04/09/2022, Additional history tehyjfBBD7D TEST/03/2025, 03/22/2024, 01/12/2024, Additional history peuwtoSDGZTSN34/30/203209/TDAP (ADULT)Qsimdkbjh72/30/2022NEUMOCOCCAL VACCINE UJWRJPNalmpupmz27/13/2023, 03/29/2023, 03/06/2021 Medical Devices ImplantedTypeAreaManufacturerDevice IdentifierShelf Expiration DateModel / Serial / LotLead Pace Standard Mdt 5076 45cm - S [id number] Implanted:Qty: 1 on 03/30/2017 [facility]A: HeartMEDTRONIC [id number] / [id number] / Pacer Dual Mri Advisa Chamber - [id number] Implanted:Qty: 1 on 03/30/2017 by Fatmata Jose MD at [facility] PacemakerLeft: ChestMEDTRONIC PACER09/05/2018A2DR01 / [id number] / ExplantedTypeAreaManufacturerDevice IdentifierShelf Expiration DateModel / Serial / LotLead St Justo [id number]/46 - [id number] Implanted:Qty: 1 on 01/29/2012 by Ashish Long MD, PhD at [facility] Explanted:Qty: 1 on 03/30/2017 [facility]T JUSTO QOAZHPT36/30/[id number]/46 / [id number] / Pacer Biotronik [id number] - [id number] Implanted:Qty: 1 on 01/29/2012 by Ashish Long MD, PhD at [facility] Explanted:Qty: 1 on 03/30/2017 by Geo Leach MD at [facility] PacemakerN/A: ChestHIST ZRKQUELQK46/01/[id number] / [id number] / Description:Device is set at DDD-CLSImplantable Mental Health Orderly Vt - [id number] Explanted:Qty: 1 on 01/29/2012 by Ashish Long MD, PhD at [facility] MEDTRONIC [id number] / [id number] / Procedures Procedure NamePriorityDate/TimeAssociated DiagnosisCommentsCHEM 7 (LYTES,BUN,CREA,GLUC)Luxtfjc0704/01/2017 3:40 AM EST HEMOGLOBIN H4HUbellwj30/20/2017 2:47 PM EDT Preop exam for internal medicine Atrial fibrillation, unspecified type SSS (sick sinus syndrome) Bradycardia Type 2 diabetes mellitus treated with insulin LIPID PANEL W CALCULATED ZNVXxouzqn19/06/2009 10:11 AM EST Diabetes POCT URINE MICROALBUMIN/URINE CREAT/AL:CEVpksdmx84/09/2009 9:10 AM EST Diabetes from Last 3 Months or Most Recently Relevant to Health Maintenance Results * (ABNORMAL) CHEM 7 (LYTES,BUN,CREA,GLUC) (04/01/2017 3:40 AM EST)ComponentValue Ref RangeTest MethodAnalysis TimePerformed AtPathologist BmauapzeuGXV62(H)7 - 22 mg/dLLAB, ZBWRJZCIT974132 - 143 mmol/LLAB, OSUPotassium3.93.5 - 5.0 mmol/L LAB, ETGZNQXAGJO19580 - 108 mmol/LLAB, OSUCARBON DIOXIDE (CO2)2622 - 30 mmol/L LAB, QCOJgzaqfu3404 - 99 mg/dLLAB, OSUCREATININE SERUM0.600.50 - 1.20 mg/dL LAB, OSUANION GAP97 - 17 mmol/LLAB, OSUBUN/CREA NDIVH06JII, OSUOSMOLALITY (CALC)915639 - 305 mOsm/kgLAB, OSUESTIMATED GFR, NON AMER>60>60 mL/min/1.73sqMLAB, OSUESTIMATED GFR, >60>60 mL/min/1.73sqMLAB, OSUSpecimen (Source)Anatomical Location / LateralityCollection Method / Volume Collection TimeReceived Time04/01/2017 3:40 AM EST04/01/2017 4:01 AM EST Narrative Authorizing ProviderResult TypeResult StatusMikeagan Borrego PASTING INSPECTOR-CNPCHEMISTRY ORDERABLESFinal ResultPerforming OrganizationAddressCity/State/ZIP CodePhone Number LAB, [facility] [address] [place] [address] * (ABNORMAL) HEMOGLOBIN A1C (03/13/2017 2:47 PM EDT)ComponentValueRef RangeTest MethodAnalysis TimePerformed AtPathologist SignatureHEMOGLOBIN A1C10.2(H)4.7 - 5.6 %LAB, OSUEstimated Average Yygpxvt901fa/dLLAB, OSUSpecimen (Source) Anatomical Location / LateralityCollection Method / VolumeCollection Time Received Time03/13/2017 2:47 PM EDT1 3:42 PM EDT Narrative Authorizing ProviderResult TypeResult StatusDannielle Palma PASTING INSPECTOR-CNPHEMATOLOGY ORDERABLESFinal ResultPerforming OrganizationAddressCity/State/ZIP CodePhone Number LAB, [facility] [address] [place] [address] * (ABNORMAL) LIPID PANEL (06/30/2008 10:11 AM EST)ComponentValueRef RangeTest MethodAnalysis TimePerformed AtPathologist BjobaqmeeOGHLFAOJHLT781<200 mg/dL LAB, OSUComment: [<200 mg/dL: Desirable] ?[200-239 mg/dL: ??Borderline High] [>239 mg/dL: High] TRIGLYCERIDES-OGFLH896(H)<150 mg/dLLAB, OSUComment: [<150 mg/dL: Desirable] [150-199 mg/dL: Borderline] [200-499 mg/dL: High] [>500 mg/dL: Very High] HDL SVTYBPLEJRK81(L)>60.0 mg/dLLAB, OSUComment: [<40 mg/dL: Low (High Risk)] [>59 mg/dL: High (Low Risk)] LDL CHOLESTEROL, AWDKFUEEMX400 - 99 mg/dLLAB, OSUComment: [<100 mg/dL: Optimal] ?[100-129 mg/dL: ??Near Optimal] ?[130-159 mg/dL: ??Borderline High] ?[160-189 mg/dL: ??High] [>189 mg/dL: Very High] CHOLESTEROL, TOTAL/HDL4.8(H)<4.5LAB, OSUComment:[<4.5: Low risk]Specimen (Source)Anatomical Location / LateralityCollection Method / VolumeCollection TimeReceived Time06/30/2008 10:11 AM EST06/30/2008 10:32 AM EST Narrative Authorizing ProviderResult TypeResult StatusLinda W Strout DOCHEMISTRY ORDERABLESFinal ResultPerforming OrganizationAddressCity/State/ZIP CodePhone Number LAB, [facility] [address] [place] [address] * POCT URINE MICROALBUMIN (MICROAL/CR/AL:CR) (06/02/2008 9:10 AM EST)Component ValueRef RangeTest MethodAnalysis TimePerformed AtPathologist SignaturePOCT URINE TFSBMSJNTCQJ18 mgCREATININE, URINE SKZU534 mg10 - 300 mg/dL ALBUMIN/CREATININE RATIO, URINE POCT30 mg<=30 mg albumin/g creatinine Narrative Authorizing ProviderResult TypeResult StatusLinda W Strout DOPOINT OF CARE TESTINGEdited from Last 3 Months or Most Recently Relevant to Health Maintenance Insurance Advance Directives For more information, please contact: [phone] (7:30 AM - 6PM [facility], Thursday-Thursday) * Full Code (Latest Code Status on File) Date ActivatedDate ZubcrfeeralNznthugf32/6/2017 9:46 AM04/01/2017 3:40 PM Care Teams Team MemberRelationshipSpecialtyStart DateEnd Date Geo sultana MD [address], [address] [place] [address] PCP - GeneralClinical Cardiac Electrophysiology09/23/16 Cherelle Fierro MD [address] [facility] [address], [address] [place] [address] Family Medicine01/30/12 George Rob DO [address] [facility] [address], [address] [place] [address] Consulting PhysicianFami Cjnbqkqc88/27/17
--- OUTSIDE RECORDS SUMMARY | 2025-05-23 21:29 | XMS_ITS | Encounter Summary ---
Author Organization [facility] Address [address] [place] [address] Care Team Providers Care Cna Ltc Name Role Phone System, Provider Not In Primary Care Provider Un available Reason for Visit * ReasonOnset DateCommentsMedication Bfewhr2205/15/2025 Encounter Details DateTypeDepartmentCare Team (Latest Contact Info)Lrnnoevfypy02/22/2025Refill [facility] Pain Management [address] [place] [address] Mihai Banerjee, [facility] [address] [place] [address] Lumbar stenosis with neurogenic claudication; DDD (degenerative disc disease), lumbar; Lumbar radiculopathy Social History Tobacco UseTypesPacks/DayYears UsedDateSmoking Tobacco: KaoaxrObjlldkjdc457.4 Started: 09/30/2014Passive Smoke Exposure: CurrentSmokeless Tobacco: Never Comments:Vaping 6 mg nicotin e Alcohol UseStandard Drinks/WeekCommentsNo0 (1 standard drink = 0.6 oz pure alcohol)OASIS A1250: TransportationAnswerDate RecordedLack of Transportation (Medical)No04/22/2023Lack of Transportation (Non-Medical)No3Patient Unable or Declines to FosbpxaLi36/29/2023AHC UtilitiesAnswerDate RecordedIn the past 12 months has [...] medical care, and heating?Somewhat hard01/13/2024HQ-2AnswerDate RecordedPHQ-2 Total Dqqnu65605/29/2023Hunger Vital SignAnswerDate RecordedWithin the past 12 months, [...] steady place to sleep or slept in [place] (including now)?Yes05/11/2023Housing Stability Vital Sign AnswerDate RecordedIn the last 12 months, was there a time when you were not able to pay the mortgage or rent on time?No04/27/2024In the past 12 months, how many times have you moved where you were living?t any time in the past 12 months, were you homeless or living in a assisted (including now)?No 04/27/2024CommentsNoSex and Gender InformationValueDate RecordedSex Assigned at BirthNot on fileLegal JinXyrsnq66/26/2014 3:26 PM EDTGender Identity Jzhoxp2806/03/2020 5:59 PM ESTSexual FohqrfssghzAfrckxvm59/10/2021 5:59 PM EST documented as of this encounter Miscellaneous Notes * Telephone Encounter - Pippa Darling - 05/15/2025 4:00 PM EST Adelina 02/[birth year] 25 Uds 03/07 documented in this encounter Plan of Treatment DateTypeDepartmentCare Team (Latest Contact Info)Telbsskckqw84/06/2026 3:00 PM ESTOffice Visit [facility] Pain Management [address] [place] [address] Morgan Velez, DO [address] [place] [address] documented as of this encounter Visit Diagnoses [...] Date System, Provider Not In PCP - Mgaylof54/2/25documented as of this encounter
--- OUTSIDE RECORDS SUMMARY | 2025-05-23 21:29 | XMS_ITS | Patient Health Record ---
Author Organization [facility] Address [address] [place] [address] Care Team Providers Care Filing And Polishing Supervisor Name Role Phone Mario Baum DO Primary Care Provider Juanjo Snow Unavailable [phone] Reason For Referral No Information Problems Problem Type SNOMED Code ICD Code Onset Dates Problem Status W/U Status Risk Notes Problem Peripheral venous in sufficiency (77527015) Venous insufficiency (chronic) (peripheral) (I87.2) ActiveconfirmedProblemChronic ulcer of foot (529608258)Non-pressure chronic ulcer of other part of left foot with fat layer exposed (L97.522)Activeconfirmed ProblemDiabetic peripheral neuropathy (645078597)Diabetic peripheral neuropathy (E11.42)ActiveconfirmedProblemHypertension (73204984)Hypertension (I10)Active confirmedProblemAnxiety (50466482)Anxiety (F41.9)ActiveconfirmedProblemType 2 diabetes mellitus (44817278)Type 2 diabetes mellitus (E11.9)Activeconfirmed ProblemLong-term current use of insulin (189431710)Current use of insulin (Z79.4)Activeconfirmed Encounters Encounter Location Date Provider Diagnosis [facility] ([facility]) [address] [place] [address] [place] [address] 08/09/2024 Juanjo Amaro Plan Of Treatment No Information Insurance Providers Payer Name Payer Address Payer Phone Subscriber Number Group Number Insured Name Patient Relationship to Insured Coverage Start Date Coverage End Date [employer] [place] [employer] [address] [place] [address] [id number] ItaZenobiaelf - patient is the xstbgmg0006/25/2022
--- OUTSIDE RECORDS SUMMARY | 2025-05-23 21:29 | XMS_ITS | Clinical Summary ---
Author Organization [facility] Address [facility] [place] [address] Care Team Providers Care Box Printer Name Role Phone System, Provider Not In Primary Care Provider Un available Allergies Active AllergyReactionsCriticalityNoted ZraxQgxxjyhaQqhfxzmnHhrrkvl56/23/2018 RmtqogqXkfkwr87/24/2008 Other reaction(s): Aggressive Behavior ProchlorperazineOther (See Comments)06/04/2023 She reports Compazine made her feel anxious and grumpy Ct: Iodinated Contrast- Oral And Iv DyeOther (See Comments)09/06/2018 Shuts my kidneys down Hxugagim36/18/2019IbuprofenOther (See Comments)06/03/2020 shuts kidney down IodidesOther (See Comments)High02/16/2017 Renal compromise KetorolacHives,Other (See Comments),Rash,GI MbhsrdgmrdoHlgt30/17/2011 Messes with seizures Unsure of reaction VidfpPncfgceoau77/08/2015LinezolidNausea And Vomiting,GI Egmexbzpcuq02/28/2023 LorazepamOther (See Comments)12/08/2021Nsaids (Non-Steroidal Anti-Inflammatory Drug)03/30/2017 shuts my kidney's down PropoxypheneGI EzdkbjtpiisTkc42/01/2016Propoxyphene N-AcetaminophenGI UvpxmarmpdhUibshh27/24/2008TramadolHives,Rash,Other (See Comments),GI RiqvsmjlxxwWhhl32/23/2012VancomycinOther (See Comments)06/03/2020 Shuts kidney down Medications MedicationSigDispense [...] months . 1 each ctive Dexcom G6 Resident Manager [facility] [place] Indications:Type 2 diabetes mellitus with diabetic polyneuropathy, [...] with long- term current use of insulin ([facility])Inject up to 150 units once daily via [...] Touch Verio . 100 strip ctive lancets [facility] [place] Indications:Type 2 diabetes mellitus with diabetic polyneuropathy, [...] 7 DAYS AND AFTER IF TOLERATED FOR LODQQUJSA13/02/2025Active hydrOXYzine (VISTARIL) 50 MG capsule Take 1 [...] MOUTH EVERYDAY AT BEDTIME FOR SLEEP AND FRNRVUA7903/01/2025 Active paliperidone (INVEGA) 9 MG 24 hr tablet Take 1 (one) tablet (9 mg total) by mouth daily .5Active clopidogreL (PLAVIX) 75 mg tablet Take 1 (one) tablet (75 mg total) by mouth .5Active insulin glargine (LANTUS) 100 unit/mL injection Inject 30 (thirty) Units under the skin 2 (two) times a day .5Active oxyCODONE-acetaminophen (PERCOCET) 7.5-325 mg per tablet Indications:Lumbar stenosis with neurogenic claudicationTake 1 (one) tablet by mouth 3 (three) times a day as needed for pain Start: 05/22/25. 90 tablet 6Active tiZANidine (Zanaflex) 4 MG tablet Indications:DDD (degenerative disc disease), lumbarTake 2 tabs p.o. nightly . 60 tablet 5Active pregabalin (LYRICA) 75 MG capsule Indications:DDD (degenerative disc disease), lumbar,Lumbar radiculopathyTake 1 (one) capsule (75 mg total) by mouth 2 (two) times a day (Days supply per fill: 30) . 60 capsule /ctive pregabalin (LYRICA) 75 MG capsule Indications:DDD (degenerative disc disease), lumbar,Lumbar radiculopathyTake 1 (one) capsule (75 mg total) by mouth 2 (two) times a day (Days supply per fill: 30) . 60 capsule /Discontinued(Reorder (Suppress CancelRx Message to Pharmacy)) tiZANidine (Zanaflex) 4 MG tablet Indications:DDD (degenerative disc disease), lumbarTake 2 tabs p.o. nightly . 60 tablet /Discontinued(Reorder (Suppress CancelRx Message to Pharmacy)) oxyCODONE-acetaminophen (PERCOCET) 7.5-325 mg per tablet Indications:Lumbar stenosis with neurogenic claudicationTake 1 (one) tablet by mouth 3 (three) times a day as needed for pain Start: 04/22/25. 90 tablet Discontinued(Reorder (Suppress CancelRx Message to Pharmacy)) Active Problems ProblemNoted DateDiagnosed DateSick sinus vvygxwur93/27/2025DDD (degenerative disc disease), psmtre2905/13/2024Lumbar ixhndigqfqgkp84/20/2024Other chronic pain 05/13/2024Myofascial pain dipqtqnx55/20/2024ostoperative nnvfvmynu63/03/2024Toe ekqggwclfbqel37/01/2024hronic pain of both knees03/22/2024andidiasis of breast 03/22/2024bnormal pigmentation of skin03/22/2024Hypertensive hzrhuhh5102/11/2024 Chronic pain qmdkonyx55/19/2024iabetic ulcer of left great toe01/12/2024etinal tridrjegjb42/18/2024KD (chronic kidney disease)10/13/2023Urinary incontinence 09/10/2023hronic npjyjuacw97/18/9453Ubtwlrxyyoqpuvyssnmf03/18/2024Family history of pulmonary yefuaovo05/11/2024 Overview (09/03/2023): Mother Family history of xgeckaka87/11/2024 Overview (09/03/2023): Mother History of wkusfw5805/17/2023Visual loss, left eye05/17/2023Left-sided weakness 05/10/2023Vitamin B12 iqbacaurgz97/15/2023Vitamin D zeropwsepy13/15/2023 Cigarette nicotine oepesormpu18/15/2023OPD (chronic obstructive pulmonary disease)05/08/2023ERD (gastroesophageal reflux disease)05/06/2023Hypothyroidism 05/06/2023iabetic peripheral iraidsmznw30/13/5589Suqlgpxg69/13/2023eneralized jigvgpvz39/13/2023Muscle spasms of both lower iklybmsmueu45/13/2023owel birodqszcwci27/13/2023hronic chest pain03/29/2023Type 2 diabetes mellitus with diabetic polyneuropathy, with long-term current use of bypaupv2506/03/2020 Assessment & Plan (06/05/2020 5:32 PM EST): [...] 5 day PRN S/P placement of cardiac muhponwwx27/10/2015 Assessment & Plan (12/01/2014 9:11 AM EDT): - Pacemaker since age 35 - Placed by Dr. 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 - Follow up with [facility] EP as planned. Hquiyqbfxeyf98/09/2015 Assessment & Plan (06/04/2020 12:44 PM EST): [...] this time Continue home seroquel, bussophy, vraylar Seizures Assessment & Plan (06/04/2020 1:16 PM EST): Continue home colette feng Resolved Problems ProblemNoted DateDiagnosed DateResolved DateEncounter for monitoring opioid maintenance diszidr00/Diabetic foot jttcnsoax53/03/2024 08/05/2024bdominal wound owqwhwcrro94Weight gain05/17/2023 02/11/2024iabetic ulcer of right foot associated [...] serial chem Strict I/O No need for TUBE OPERATOR yet. Will continue to watch for signs that TUBE OPERATOR is indicated. Will follow along with you [...] this morning. 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 Encounters DateTypeDepartmentCare NodqWmzpfjmlyzm18/22/2025[facility] [place] [address] Mihai Banerjee CNP Lumbar stenosis with neurogenic claudication; DDD (degenerative disc disease), lumbar; Lumbar /24/2025Ref[facility] [place] [address] Mihai Banerjee CNP DDD (degenerative disc disease), lumbar; Lumbar radiculopathy; Lumbar stenosis with neurogenic aumrrgfpfdba23/28/2025[facility] [place] [address] Mihai Banerjee CNP DDD (degenerative disc disease), lumbar; Lumbar radiculopathy; Lumbar stenosis with neurogenic sivvofprtjso22/15/2025 11:30 AM EDTOffice Visit [facility] [address] [place] [address] Mihai Banerjee CNP [place]asso, Christian Louis, MD Back pain with radiculopathy (Primary Dx); Degeneration of intervertebral disc of lumbar region with discogenic back pain and lower extremity pain; Chronic pain of right knee03/08/2025RefAs[facility], Neuroscience [address] [place] [phone] Jem Kumar MD Claustrophobia (Primary Dx)03/08/20258033Eaqhmw30/03/2025Documentation [facility] [place] [address] Jay Peralta MA Power scooter DME02/23/2025 2:00 PM EDTOffice Visit [facility] [place] [address] Mihai Banerjee CNP Lumbar stenosis with neurogenic claudication (Primary Dx); Left hand pain; Fall, initial encounter; Lumbar radiculopathy; Chronic pain syndrome; Myofascial pain syndrome; Degeneration of intervertebral disc of lumbar region with discogenic back pain and lower extremity pain02/23/2025Travelfrom Last 3 Months Immunizations ImmunizationAdministration DatesNext DueINFLUENZA IIV4 6MO OR > FLUARIX/FLUZONE/AFLURIA 312006207/07/2022,04/09/2022,06/05/2020Influenza RIV3 (FLUBLOK) 9 years old or greater - kyypidb0302/11/2024Influenza Whole05/28/2015 Influenza, Injectable, Quadrivalent, Preservative Free03/06/2021,02/22/2018 Influenza, Seasonal, Xfugfpholh48/02/2014Influenza, Oyhnzhcwcae28/04/2016Moderna SARS-CoV-2 Xmustduewgd76/11/2021Pneumococcal Conjugate 20-Valent (Prevnar 20) 05/06/2023,3Pneumococcal Polysaccharide (Pneumovax 23)03/06/2021, 07/06/2014Tdap02/21/2022 Family History Medical HistoryRelationCommentsDiabetesFatherDiabetes type IIFatherHypertension FatherSeizuresMotherRelationStatusCommentsFatherMother Social History Tobacco UseTypesPacks/DayYears UsedDateSmoking Tobacco: EuuorwUxyomvsbqd170.4 Started: 09/30/2014Passive Smoke Exposure: CurrentSmokeless Tobacco: Never Tobacco Cessation:Counseling Given: Not Answered Comments:Vaping 6 mg nicotine Alcohol UseStandard Drinks/WeekCommentsNo0 (1 standard drink = 0.6 oz pure alcohol)OASIS A1250: TransportationAnswerDate RecordedLack of Transportation (Medical)04/22/2023Lack of Transportation (Non-Medical)04/22/2023atient Unable or Declines to KwywkkzVi51/29/2023HC UtilitiesAnswerDate RecordedIn the past 12 months has the Influx, gas, oil, or water Resource Guru threatened to shut off services in your [...] medical care, and heating?Somewhat hard01/13/2024HQ-2AnswerDate RecordedPHQ-2 Total Bnlav20605/29/2023Hunger Vital SignAnswerDate RecordedWithin the past 12 months, [...] InformationValueDate RecordedSex Assigned at BirthNot on fileLegal WrpHbmjni72/26/2014 3:26 PM EDTGender Identity Cgoepz1906/03/2020 5:59 PM ESTSexual YqborhzvyliOnooyhcr35/10/2021 5:59 PM EST Last Filed Vital Signs Vital SignReadingTime TakenCommentsBlood Btefzmpy613/3622202/23/2025 1:51 PM EDT Uepyt737802/23/2025 1:51 PM MPELjtholbdajj82.4 ??C (97.6 ??F)09/22/2024 3:10 PM EDTRespiratory Uglp633609/22/2024 5:08 PM EDTOxygen Cjxsuwymuo98%09/23/2024 10:55 AM EDTInhaled Oxygen Concentration--Hqafts269 kg (280 lb)02/23/2025 1:51 PM EDT Mmwoxm295.5 cm (5' 2 )02/23/2025 1:51 PM EDTBody Mass Index51.211 1:51 PM EDT Plan of Treatment DateTypeDepartmentCare Team (Latest Contact Info)Iohqsczhsbv58/06/2026 3:00 PM ESTOffice Visit [facility] [place] [address] [place] [phone] Morgan Velez, DO [address] [place] [address] Health MaintenanceDue DateLast DoneCommentsCT Dedepibufobx1977Colonoscopy 1977Colorectal Cancer Screening/Edgponwenn1977Fecal DNA1977 Fecal occult blood test (FOBT,FIT)1977Flexible skanbvqpitmyc1977 Urine (micro)albumin/creatinine ratio - Semrvigx33/25/1987Hepatitis B Vaccines (1 of 3 - 19+ 3-dose series)1996Pap Smear1998HPV/Huaykp5304/18/2007 Bphwpfjoo41/25/2017Diabetic Foot Exam/Wellness Visit 504/4Diabetic Eye Exam/OVID-19 Vaccine ( - season), 12/02/2020Influenza Vaccine (#1)2025 02/11/2024, 05/06/2023, 04/09/2022, Additional history existseGFR ??? Diabetes /05/2024, 09/18/2024, 08/02/2024, Additional history njitnlQ7E , 12/03/2024, 10/01/2024, Additional history existsZoster Vaccines (1 of 2)2027Tetanus/Diphtheria/Pertussis (2 - Td or Tdap) 2RSV Vaccines (1 - 1-dose 75+ series)2052neumococcal WtperjjXpgauvmkt13/13/2023, 03/29/2023, 03/06/2021, Additional history existsHIV VmqhdfpheAjfwjrvko65/11/2025Hepatitis C UgdeulszgNkuskbizt44/11/2025ervical Cancer ScreeningDiscontinuedHIB VaccinesAged OutNo longer eligible based [...] Procedure NamePriorityDate/TimeAssociated DiagnosisCommentsSCAN OTHER ORDERS 03/08/2025ASIC METABOLIC VOECOQCZE53/01/2025 3:11 PM EDT HIV 1/2 SCREEN (4TH GENERATION)Xpqrlrd1208/02/2024 3:40 PM EDT Encounter for health-related screening HEMOGLOBIN X2DUsgaskm47/11/2025 3:40 PM EDT Type 2 diabetes mellitus with diabetic polyneuropathy, with long-term current use of insulin (HCC) HEPATITIS C ANTIBODY WITH REFLEX TO HCV VIRUS PBLRTBJQIZQIXTsutmec08/11/2025 3:40 PM EDT Encounter for health-related screening HM DIABETES FOOT BUOSXlbsjvm81/21/2023from Last 3 Months or Most Recently Relevant to Health Maintenance Results * SCAN OTHER ORDERS (03/08/2025)Specimen (Source)Anatomical Location / LateralityCollection Method / VolumeCollection TimeReceived Time03/08/2025 Narrative Authorizing ProviderResult TypeResult StatusChristian Wei Kumar MDSCANNED ORDERSFinal Result * (ABNORMAL) BMP (09/22/2024 3:11 PM EDT)ComponentValueRef RangeTest Method Analysis TimePerformed AtPathologist QoixcolqtWlhibs528(L)135 - 145 mmol/L 09/22/2024 3:44 PM EDTM LABPotassium4.03.5 - 5.1 mmol/L09/22/2024 3:44 PM EDTMGH GPDKqfgbtaq16(L)98 - 108 mmol/L09/22/2024 3:44 PM EDTMGH LABBicarbonate 17(L)21 - 32 mmol/L09/22/2024 3:44 PM EDTMGH LABAnion Gkw0752 - 20 mmol/L 09/22/2024 3:44 PM EDTMGH UGAWzmhghs911(HH)65 - 99 mg/dL09/22/2024 3:44 PM EDT [facility] YKGIOM34(H)8 - 25 mg/dL09/22/2024 3:44 PM EDTMGH LABCreatinine1.71(H)0.40 - 1.10 mg/dL09/22/2024 3:44 PM EDTMGH ZXTcMHV25(L)>=60 mL/min/1.73 m2 09/22/2024 3:44 PM EDTMGH LABComment:Estimated GFR was calculated using the 2020 CKD-EPI creatinine equation.BUN/Creatinine Ratio17.510.0 - 20.005 3:44 PM [facility] LABCalcium8.98.4 - 10.2 mg/dL09/22/2024 3:44 PM [facility] LAB Specimen (Source)Anatomical Location / LateralityCollection Method / Volume Collection TimeReceived TimeBloodBLOOD SPECIMEN / UnknownVenipuncture / Iugglci5509/22/2024 3:11 PM EDT09/22/2024 3:19 PM EDT Narrative [facility] - 09/22/2024 3:44 PM EDT [facility] has implemented the eGFR calculation approach that does not have a coefficient for race that conforms to the NKF-ASN Task Force Recommendations. Authorizing ProviderResult TypeResult StatusMattlori TOBAR BLOOD ORDERABLESFinal ResultPerforming OrganizationAddressCity/State/ZIP CodePhone Number [facility] [address] [place] [address] * Hepatitis C Ab with Reflex to HCV Virus Quantitation (08/02/2024 3:40 PM EDT) ComponentValueRef RangeTest MethodAnalysis TimePerformed AtPathologist SignatureHepatitis C Ab (Crayon Data)TKP-UTKXNLJKJVS-JUYEXCOGRXHUX DIAGNOSTICS [facility]Comment: HCV antibody was non-reactive. There is no laboratory evidence of HCV infection. In most cases, no further action is required. However, if recent HCV exposure is suspected, a test for HCV RNA (test code 72055) is suggested. For additional information please refer to http://education.[employer]/faq/HYP94o3 (This link is being provided for informational/ educational purposes only.) Specimen (Source)Anatomical Location / LateralityCollection Method / Volume Collection TimeReceived TimeBloodBLOOD SPECIMEN / Opoqnqj8908/02/2024 3:40 PM EDT 08/02/2024 3:41 PM EDT Narrative Authorizing ProviderResult TypeResult StatusLabryan MANUEL BLOOD ORDERABLESFinal ResultPerforming OrganizationAddressCity/State/ZIP CodePhone Number [employer] [facility] [address] [place] [address], * HIV Antibody (HIV1/HIV2) (08/02/2024 3:40 PM EDT)ComponentValueRef RangeTest MethodAnalysis TimePerformed AtPathologist SignatureHiv Ag/Ab 4Th Gen (Quest) ECO-KCPWQRBXZQO-CQPBQSFXURFAJ [employer] [facility]ITALComment: HIV-1 antigen and HIV-1/HIV-2 antibodies were [...] ?? For additional information please refer to http://education.[employer]/faq/AQL197 (This link is being provided for informational/ educational purposes only.) The performance of this assay has not been clinically validated in patients less than 2 years old. Specimen (Source)Anatomical Location / LateralityCollection Method / Volume Collection TimeReceived TimeBloodBLOOD SPECIMEN / Byptsxu0208/02/2024 3:40 PM EDT 08/02/2024 3:41 PM EDT Narrative Authorizing ProviderResult TypeResult StatusLaura Leann MANUEL BLOOD ORDERABLESFinal ResultPerforming OrganizationAddressCity/State/[facility] CodePhone Number [employer] [facility] [address] [place] [address], * (ABNORMAL) Hemoglobin A1c (08/02/2024 3:40 PM EDT)ComponentValueRef RangeTest MethodAnalysis TimePerformed AtPathologist SignatureHemoglobin A1C10.6(H)<5.7 % of total HgbKizziang [facility]ITALComment: For someone without known diabetes, a [...] / Volume Collection TimeReceived TimeBloodBLOOD SPECIMEN / Qfiugkj0008/02/2024 3:40 PM EDT 08/02/2024 3:41 PM EDT Narrative Authorizing ProviderResult TypeResult StatusLaura Leann MANUEL BLOOD ORDERABLESFinal ResultPerforming OrganizationAddressCity/State/ZIP CodePhone Number [facility] [address] [place] [address], * DIABETES FOOT EXAM (04/14/2023)Specimen (Source)Anatomical Location / LateralityCollection Method / VolumeCollection TimeReceived Time04/14/2023 Narrative Authorizing ProviderResult TypeResult StatusHistorical Provider MDHEALTH MAINTENANCEFinal Result from Last 3 Months or Most Recently Relevant to Health Maintenance Insurance Advance Directives For more information, please contact: [phone] TypeDate RecordedPatient RepresentativeExplanationAdvance Directives and Living Will6/ 8:44 PM * Full Code (Latest Code Status on File) Date ActivatedDate LdrvzvcvgwyLxelnptc60/4/2024 1:09 AM04/29/2024 5:58 PM * Full Code Date ActivatedDate RmphgfrybekLiurilok47/3/2024 11:46 PM04/27/2024 1:09 AM * Full Code Date ActivatedDate EkuebxwmouoEknlgzra71/1/2024 12:34 AM04/04/2024 7:43 PM * Full Code Date ActivatedDate InactivatedComments01/12/2024 5:17 PM01/18/2024 4:48 PM * Full Code Date ActivatedDate LtxaleerisfNlsoasuu04/17/2023 4:09 PM05/13/2023 6:15 PM Care Teams Team MemberRelationshipSpecialtyStart DateEnd Date System, Provider Not In PCP - Xscqbvd49/2/25
--- OUTSIDE RECORDS SUMMARY | 2025-05-23 21:45 | XMS_ITS | CCD ---
Author Organization [facility] CliniSynm Care Team Providers Care Drafter Civil (Cad) Name Role Phone Cem Mario Unavailable Unavailable [...] Unavailable Unavailable Breanna Gu Primary Care Physician [phone] [place] Unavailable Unavailable Herlinda June Unavailable eCm Mario DO Primary Care Provider CEM MARIO Primary Care Unavailable ANTOINE SOSA Attending Unavailable Radha Dias Primary Care Physician Pool Heath Primary Care Physician [phone] LOLI Franco Primary Care Provider DO Jacob Farfan Emergency Provider DO Ezekiel Mathew Admit Provider DO Ezekiel Mathew Attending Provider MD Jeana Martini Attending Provider MD Lawrence Kim Other Provider LUPE Castillo Other Provider [phone] MD Shameka Romero Other Provider [phone] LOLI Franco Primary Care Provider [phone] DO Jacob Farfan Emergency Provider [phone] DO Ezekiel Mathew Admit Provider [phone] MD Lawrence Kim Other Provider LUPE Castillo [...] Unavailable KALLIE, DR AGUILERA Primary Care Unavailable TOPEKA, DR KO Bravo Consulting Unavailable KWADWO .RAFAELA [...] Not In Primary Care Provider Un available [facility] Primary Care Provider [facility] Primary Care Unavailable XIMENA RINCON Attending Unavailable [facility] Primary Care Provider No, Physician Primary Care Provider Unavailtheo e Stephany Pelayo PA-C Primary Care Provider [phone] Angeles ELDER, Josephine Unavailable Unavailable Doctor, No Referring Unavailable Doctor, No Primary Care Unavailable Idalia Bruner Attending Unavailable Idalia Bruner Consulting Unavailable Angeles ELDER, Josephine Unavailable Unavailable Cherelle Fierro MD Unavailable [phone] Lexy Leach MD Primary Care Provider Cem Mario DO Unavailable [phone] Angeles RN, Josephine Unavailable Unavailable Angeles ELDER, Josephine Unavailable Unavailable Swapnil Hooks Unavailable Unavailable Doles RD, Radha E Unavailable Unavailable JesseeMaicoSwapnil R Unavailable Unavailable [facility] Primary Care Unavailable HARSHAD RIZZO Referring Unavailable STEPHANY PELAYO Primary Care Unavailable HARSHAD RIZZO Referring Unavailable Stephany Pelayo PA-C Primary Care Provider Unavailable Primary Care Provider Unavailabl e Danaelobenito STEVENS, Dominguez Provider Primary Care Provi arlene Jim Velez MD Unavailable Doctor, No Primary Care Provider Unavailtheo Kuhn [...] Unavailable LAWSONJUWAN ALI Admitting Unavailable [facility] Consulting Unavai lable AHRUTHY SMITH Attending Unavailable SHAMEKA CASTILLO Consulting Unavailable [facility] Attending Unavailable STEPHANY PELAYO Primary Care Unavailable SHAMEKA CASTILLO Consulting Unavailable HARSHAD RIZZO Admitting Unavailable [facility] Consulting Unavai lable JUDY, SILESHI ADMASSU Admitting Unavailab STEPHANY Graham Primary Care Unavailable [facility] Consulting Unavai lable HARSHAD RIZZO Attending Unavailable FLOYD CASTILOL Consulting Unavailable STEPHANY PELAYO Primary Care Unavailable [...] Provider Radha Dias DO Primary Care Provider [phone] Unavailable Primary Care Provider UnavailVANESSA Nielsen Admitting [...] sources)codeine; Translations: [codeine]Propensity to adverse reactions to tfyc70-27-4971Ikehkpnh (disorder), hives, Other (See Comments)[facility] Work Phone: comment on above:hiveshives (20 sources)ketorolac; Translations: [ketorolac]Propensity to adverse reactions to gffi25-73-6116Yydsp, Other (See Comments), Rash, GI Intolerance, Vomiting (disorder)[facility] Work Phone: comment on above:hiveshives (20 sources)Latex; Translations: [LATEX]Propensity to adverse reactions to drug 05-47-9803KyuxlhillgBlwhPslfqr Work Phone: (20 sources)traMADol; Translations: [tramadol]Propensity to adverse reactions to kvzc36-51-6035Vozyz, Rash, Other (See Comments), GI Intolerance, Vomiting (disorder), Seizures, UnknownOhioHealth Work Phone: comment on above:seizuresseizures (20 sources)PROPOXYPHENE N-ACETAMINOPHEN; Translations: [PROPOXYPHENE N-ACETAMINOPHEN]Propensity to adverse reactions to xwcu55-38-0933PO Intolerance, VomitingOhioHealth Work Phone: (1 source)Acetaminophen / PropoxypheneDrug AllergyMem[facility] (20 sources)Adhesive agent; Translations: [ADHESIVE]Drug allergy (disorder) 89-13-3726WdmccsnUfkweouuMemorial [facility] (1 source)CodeineDrug AllergyMem[facility] (10 sources)Ketorolac; Translations: [Toradol]Drug Kdbccov54-69-2905 hives/seizuresMemorial [facility] (4 sources)LatexDrug allergy (disorder)03-54-7798JlhuzvwlMemorial Hospital [facility] (4 sources)traMADolDrug Qvsyeeg56-75-7581WfhxzrjbMemorial [facility] (20 sources)Vancomycin; Translations: [VANCOMYCIN]Drug Bpnkpbo03-99-5877Dfbjnyi Reaction, Unknown Reaction, [facility] Comment on above: shuts down my kidneys . (3 sources)IV Dye, Iodine ContainingDrug allergy (disorder)85-61-4018ZbrhvpzzMemorial [facility] (11 sources)Adhesive Tape; Translations: [adhesive tape]Allergy to Substance 12-58-3701LotrqHmsMemorial Health [facility] (20 sources)Ibuprofen; Translations: [ibuprofen]Drug Uopjbzv13-99-8344Kgqhr (See Comments), Renal Failure, [facility] CtrComment on above: shuts down my kidneys . (20 sources)Propoxyphene; Translations: [PROPOXYPHENE]Drug Avhxkwi83-62-3031RS Intolerance, Nausea And VomitingMer[facility] (17 sources)Iodinated Contrast Media; Translations: [Iodinated Contrast Media] Allergy to Gljozanem55-94-4212Bwsjx, [facility] Comment on above: shuts down my kidneys . (3 sources)CodeineDrug Gyaknkv24-17-2303AkaSamaritan North [facility] Rep[facility] (1 source)Contrast media; Translations: [IVP DYE]Propensity to adverse reactions (disorder)39-09-1147IftSamaritan North Health Center Repository (20 sources)fentaNYL; Translations: [FENTANYL]Drug Tmbxqnw30-27-5768IjgjxOpySamaritan North Health Center Repository (1 source)VancomycinDrug Rfkwyxn92-41-5303LajSamaritan North Health Center Repository (9 sources)DARVOCET-N 100; Translations: [Darvocet-N 100]Drug allergy (disorder) 34-54-8283hvbtlHnzSamaritan North Health Center Repository (20 sources)fentaNYL; Translations: [fentanyl]Drug Rjkmxyy80-48-5150Pmecf Failure, GI intoleranceOhioHealth (20 sources)NSAIDs; Translations: [NSAIDS (NON-STEROIDAL ANTI-INFLAMMATORY DRUG)]Propensity to adverse reactions to yhhq41-56-3926HglgFdyksv (20 sources)Vancomycin; Translations: [vancomycin]Drug Slycale05-24-2918Znrdi (See Comments), hivesOhioHealth (20 sources)Ct: Iodinated Contrast- Oral And Iv Dye; Translations: [CT: IODINATED CONTRAST- ORAL AND IV DYE]Propensity to adverse reactions to drug 42-68-7149Tfcim (See Comments)[facility] (20 sources)acetaminophen / propoxyphene; Translations: [acetaminophen-propoxyphene]Drug Azwresq00-28-7822Ueitguzm (disorder), Nausea and VomitingOhiohealth Doctors Hospital (20 sources)Contrast media; Translations: [Contrast Dye]Drug allergyRenal failure syndrome (disorder)[facility] (20 sources)insect stings; Translations: [insect stings]Allergy to substance swellingOhiohealth Doctors Hospital (20 sources)opsite; Translations: [opsite]Allergy to substanceredness,blisters [facility] (7 sources)Tape 5Propensity to adverse reactions to substanceEruption of skin (disorder)[facility] HospitalComment on above:blisters (20 sources)Tape 2Propensity to adverse reactions to substanceEruption of skin (disorder)[facility] HospitalComment on above:blistersblisters (5 sources)FENTENOLPropensity to adverse flovrfpmy31-72-2285Gpogkxr, Unknown ReactionCorey Hospital (5 sources)adhesive tape, iv dye, latexPropensity to adverse yfntnlcan28-82-4377 itchyCorey Hospital (1 source)Tape 4Propensity to adverse reactions to substanceEruption of skin (disorder)[facility] Comment on above:blisters (2 sources)KetorolacDrug Lntvtpf08-81-5234Nzkso (See Comments)[facility]INREG[facility] Work Phone: (20 sources)LORazepam; Translations: [LORAZEPAM]Drug Zxkuygs13-34-1884 Hallucinations, Other (See Comments)[facility] (20 sources)Iodides; Translations: [IODIDES]Propensity to adverse reactions to irlc08-46-0172Fylby (See Comments)[facility] (20 sources)linezolid; Translations: [linezolid]Drug Ehtdljc17-99-6446Plygld and vomiting (disorder), Nausea And Vomiting, GI Intolerance, Renal Failure [facility] (4 sources)dextrose 5 % in water; Translations: [dextrose 5 % in water] Propensity to adverse srabdsakp93-67-6572ZejwmheuEggrcmqtm [facility] (1 source)VancomycinDrug AllergyhiBCNXInnercircuit, Inc. Spacedeck Other (1 source)linezolidDrug Fjraoav90-09-2997EpgLima Memorial [facility] Repository (20 sources)Adhesive agentPropensity to adverse reactions to lbmj53-60-9165 ItchingOhioHealth Work Phone: (2 sources)Adhesive agentDrug allergy (disorder)21-75-0015GkgeProtestant Hospital Repository (2 sources)CodeineDrug Uuqlsrc91-49-9282Ucap [facility] Repository (2 sources)fentaNYLDrug Dehqatl12-48-7395Aguh [facility] Repository (2 sources)fosphenytoinDrug Jiqbcyo99-42-2661Onis [facility] Repository (2 sources)KetorolacDrug Pmscrfq17-29-6464Fxvo [facility] Repository (2 sources)LatexDrug allergy (disorder)69-18-1132KwzrProtestant Hospital Repository (3 sources)PropoxypheneDrug Eougvdy82-34-3640GiwwhrqXidm [facility] Repository (3 sources)traMADolDrug Dwecsjz39-64-1695RpywfopKkda [facility] Repository (2 sources)VancomycinDrug Nzcdoza46-44-4423Mmbl [facility] Repository (3 sources)ibuproxamDrug allergy (disorder)67-74-2109GqbeProtestant Hospital Repository (3 sources)bug bites; Translations: [bug bites]Propensity to adverse reactions (disorder)66-30-9572YbnafdxBxgaSCCI Hospital [facility] Repository (20 sources)Prochlorperazine; Translations: [PROCHLORPERAZINE]Drug Allergy 89-23-4722Wbezj (See Comments)[facility] (7 sources)Ketorolac trometamolPropensity to adverse reactions to cden89-96-9361 PalpitationsDayton Osteopathic Hospital (9 sources)LatexPropensity to adverse reactions to zvtv66-98-2912Dnjlbvonxi, Hives, RashDayton Osteopathic Hospital (9 sources)Non-steroidal anti-inflammatory agentPropensity to adverse reactions to gttd76-95-3988MIFDayton Osteopathic Hospital (3 sources)*Adhesive TapePropensity to adverse zsizpnypv99-17-6064WLEDayton Osteopathic Hospital Work Phone: (3 sources)Codeine And RelatedPropensity to adverse reactions to lkqh63-83-1418 Aggressive BehaviorDayton Osteopathic Hospital (3 sources)Dye Prison Red 3 (Erythrosine)Propensity to adverse reactions to drug 74-96-1048YEEDayton Osteopathic Hospital (8 sources)LorazepamPropensity to adverse reactions to stwi19-89-1640Nnlnb Failure, HallucinationsDayton Osteopathic Hospital (6 sources)Morphine And CodeineDrug Obvxtlnqtzw02-79-4172Onujd, Rash, GI intoleranceNOMS Healthcare (7 sources)Adhesive agentAllergy to voxtcloac93-51-1464NxqsaeuAojgClhpfz Work Phone: (1 source)fosphenytoinDrug Fvoqfhr99-18-6116SvujjrhVwsf [facility] Work Phone: (4 sources)Acetaminophen; Translations: [ACETAMINOPHEN]Drug Mvdqrrj93-79-0709 hivesUnSt. Anthony's Hospital Repository (1 source)Morphine; Translations: [MORPHINE]Drug Gcscrrc49-87-4246VpcdgfrodoSt. Anthony's Hospital Repository (5 sources)ADHESIVE TAPE-SILICONES; Translations: [ADHESIVE TAPE-SILICONES] Propensity to adverse reactions to drug (disorder)13-08-2302DcdamwzogeSt. Anthony's Hospital Repository (4 sources)Contrast media; Translations: [DYE]Propensity to adverse reactions to nfox71-94-1010VerXriysc [facility] (4 sources)Adhesive Tape; Translations: [Tape]Propensity to adverse reactions (disorder)[facility] Rep[facility] (4 sources)traMADol; Translations: [Ultram]Drug AllergyFisher Grace [facility] Center Repository Medications Current Medications MedicationDrug Class(es)DatesSig (Normalized)Sig (Original)acetaminophen 325 mg / oxyCODONE hydrochloride 7.5 mg oral tablet (20 sources)Opioid AgonistStart: 02-23-2025 End: 26-65-5996rbmq 1 tablet by mouth three times daily as needed for pain oxyCODONE-acetaminophen (PERCOCET) 7.5-325 mg per tablet Indications: Lumbar stenosis with neurogenic claudication Take 1 (one) tablet by mouth 3 (three) times a day as needed for pain . 90 tablet 03/21/2025 04/20/2025 ActiveStart: 26-55-9857uhjz 1 tablet by mouth every eight hours as neededOxycodone- Acetaminophen (Percocet) 5-325 mg tablet Active 1 TAB PO Every 8 hours as needed 0 February 19, 2025 11:00pm Complies with drug therapyStart: 12-03-2024 End: tablet, oral, Every 8 hours PRN, severe pain - pain scale 7-10, Starting on 12/03/24 at 0253, Look-alike/sound-alike medication - verify indication for use., Indications: painStart: 11-21-2024 End: 46-47-3098yzgc 1 tablet by mouth three times daily as needed for pain oxyCODONE-acetaminophen (PERCOCET) 5-325 mg per tablet Indications: Chronic pain syndrome Take 1 (one) tablet by mouth 3 (three) times a day as needed for pain (Days supply per fill: 30) Start: 12/22/24. 90 tablet 12/22/2024 03/16/2025 Discontinued (Dose adjustment)Start: 10-23-2024 End: 23-41-4226cwur 1 tablet by mouth three times daily as needed for pain oxyCODONE-acetaminophen (PERCOCET) 5-325 mg per tablet Indications: Chronic pain syndrome Take 1 (one) tablet by mouth 3 (three) times a day as needed for pain (Days supply per fill: 14) Start: 10/23/24. 42 tablet 10/23/2024 10/10/2024 Discontinued (Reorder (Suppress CancelRx Message to Pharmacy))Start: 10-23-2024 End: 55-03-1582stzd 1 tablet by mouth three times daily as needed for pain oxyCODONE-acetaminophen (PERCOCET) 5-325 mg per tablet Indications: Chronic pain syndrome Take 1 (one) tablet by mouth 3 (three) times a day as needed for pain (Days supply per fill: 14) Start: 10/23/24. 42 tablet 10/23/2024 10/10/2024 Discontinued (Reorder (Suppress CancelRx Message to Pharmacy))Start: 10-11-2024 End: 69-33-0365gqpz 1 tablet by mouth three times daily as needed for pain oxyCODONE-acetaminophen (PERCOCET) 5-325 mg per tablet Indications: Chronic pain syndrome Take 1 (one) tablet by mouth 3 (three) times a day as needed for pain (Days supply per fill: 30) . 90 tablet 10/11/2024 11/21/2024 Discontinued (Reorder (Suppress CancelRx Message to Pharmacy))Start: 09-23-2024 End: 00-90-2304rgbv 1 tablet by mouth three times daily as needed for pain oxyCODONE-acetaminophen (PERCOCET) 5-325 mg per tablet Indications: Chronic pain syndrome Take 1 (one) tablet by mouth 3 (three) times a day as needed for pain (Days supply per fill: 14) . 42 tablet 09/23/2024 10/06/2024 Discontinued (Reorder (Suppress CancelRx Message to Pharmacy))Start: 25-46-9889Rwwoprqhl- Acetaminophen 5-325 mg tablet Active TAB TABLET August 29, 2024 12:00amStart: 07-14-2024 End: 02-64-5753gbcb 1 tablet by mouth twice daily as needed for painoxyCODONE- acetaminophen (PERCOCET) 5-325 mg per tablet Indications: Chronic pain syndrome Take 1 (one) tablet by mouth 2 (two) times a day as needed for pain . 60 tablet 08/19/2024 03/16/2025 Discontinued (Dose adjustment)Start: 06-12-2024 End: 19-73-9778qsvXKYZCL-acetaminophen (PERCOCET) 5-325 mg per tablet Indications: Chronic [...] (Suppress CancelRx Message to Pharmacy))Start: 04-12-2024 End: 69-51-1992qxvq 1 tablet by mouth every six hours as needed for pain oxyCODONE-acetaminophen (PERCOCET) 5-325 mg per tablet Indications: Chronic pain syndrome Take 1 (one) tablet by mouth every 6 (six) hours as needed for pain (Days supply per fill: 30) . 15 tablet 04/12/2024 09/23/2024 Discontinued (Reorder (Suppress CancelRx Message to Pharmacy))Start: 04-08-2024 End: 36-46-0362laxf 1 tablet by mouth every four hours as needed for pain oxyCODONE-acetaminophen (PERCOCET) 5-325 mg per tablet Indications: Chronic pain syndrome Take 1 (one) tablet by mouth every 4 (four) hours as needed for pain (Days supply per fill: 10) MAX 6/DAY FORACUTE POST-OP PAIN . 180 tablet 05/13/2024 06/10/2024 Discontinued (Reorder (Suppress CancelRx Message to Pharmacy))Start: 03-24-2024 End: 52-00-0615ugfv 1 tablet by mouth once daily as needed for painoxyCODONE- acetaminophen (PERCOCET) 5-325 mg per tablet Indications: Chronic pain syndrome Take 1 (one) tablet by mouth nightly as needed for pain (Days supply per fill: 30) . 30 tablet 03/24/2024 04/23/2024 ActiveStart: 03-24-2024 End: 89-97-0621qfna 1 tablet by mouth every four hours as neededStart: 02-20-2024 End: 92-17-2108Admix: 01-12-2024 End: 42-38-7011njxz 1 tablet by mouth every six hours as needed1 tablet, Oral, Every 6 hours PRN, moderate to severe pain, Starting on Thu01/12/24 at 1823 Start: 35-87-0987ejnl 1 tablet by mouth once1 tablet, Oral, Once, On Thu01/12/24 at 1540, For 1 doseStart: 12-24-2023 End: 35-20-2459dhtm 1 tablet by mouth once daily as needed for painoxyCODONE- acetaminophen (PERCOCET) 5-325 mg per tablet Indications: Chronic pain syndrome Take 1 (one) tablet by mouth nightly as needed for pain (Days supply per fill: 30) . 30 tablet 02/20/2024 03/22/2024 Discontinued (Reorder (Suppress CancelRx Message to Pharmacy))Start: 12-16-2023 End: 38-80-1705ikvz 1 tablet by mouth once daily as needed for painoxyCODONE- acetaminophen (PERCOCET) 5-325 mg per tablet Indications: Chronic pain syndrome Take 1 (one) tablet by mouth nightly as needed for pain (Days supply per fill: 30) . 30 tablet 12/16/2023 12/21/2023 Discontinued (Reorder (Suppress CancelRx Message to Pharmacy))Start: 10-06-2022 End: 09-72-7623zcoJYDZFV-acetaminophen (PERCOCET) 5-325 mg per tabletStart: 06-05-2020 End: 89-57-6108qidt 1 tablet by mouth every six hours [...] tablet 0 06/05/2020 06/10/2020 ActiveStart: 02-08-2015 End: 08-56-1308arkx 1 tablet by mouth twice dailyoxyCODONE-acetaminophen (PERCOCET) 5-325 mg per tablet Take 1 tablet by mouth 2 (two) times a day 0 02/08/2015 06/26/2017 DiscontinuedStart: 07-04-2014 End: 87-34-6422pnkh 1 tablet by mouth twice dailyOxycodone-Acetaminophen 1 EACH tablet Discontinued 1 TAB PO TWO TIMES DAILY July 04, 2014 1:00am July 06, 2014 1:[id number] 200 actuat albuterol 0.09 mg/actuat metered dose inhaler (20 sources)beta2-Adrenergic AgonistStart: 06-95-2797mpjg 1 puff(s) by inhalation every four to six hours as neededAlbuterol Sulfate (Ventolin Hfa) 90 mcg/actuation HFA aerosol inhaler Active 2 PUFF INHALATION EVERY 4-6 HOURS as needed February 19, 2025 11:00pm Complies with drug therapyStart: 08-29-2024 Albuterol Sulfate 2.5 mg /3 mL (0.083 %) solution for nebulization Active MG August 29, 2024 12:00amStart: 04-27-2024 End: 27-11-1300fyqv 2.5 mg by inhalation every six hours as needed for wheezing Start: 03-25-2024 End: 70-78-3023disk 2.5 mg by inhalation every six hours as needed for wheezing Start: 12-10-2023 End: 34-81-9234ixtp 2.5 mg by inhalation every six hours [...] 75 mL 3 08/02/2024 ActiveStart: 12-10-2023 End: 93-63-2641dfzx 2.5 mg by inhalation every six hours as needed for wheezing Start: 12-01-2023 End: 31-41-9980zyoe 1 puff(s) by inhalation every four to six hours as needed for wheezingalbuterol 90 mcg/actuation inhaler Indications: Chronic obstructive pulmonary disease, unspecified COPD type (HCC) Inhale 1 (one) puff every 4 to 6 hours as needed for shortness of breath or wheezing. 18 g 3 08/02/2024 Active Start: 30-77-5073Swkvd: 03-31-2023 End: 31-81-5481kttu 1 puff(s) by inhalation every four to [...] 11, 2022 11:00pm Complies with drug therapyStart: 98-66-8120Lxxzzjws HFA 108 (90 Base) MCG/ACT inhaler 08/08/2022 ActiveStart: 64-18-0891yyms 1 puff(s) by mouth every four hours as neededVentolin HFA 108 (90 Base) MCG/ACT inhaler INHALE 1 PUFF BY MOUTH EVERY 4 HOURS NEEDED 08/08/2022 ActiveStart: 67-71-8901rzuv 2 puff(s) by inhalation four times daily as neededAlbuterol Sulfate HFA 108 (90 Base) MCG/ACT 2 puffs Inhalation qid prn May, ActiveStart: 06-03-2020 End: 08-58-5424ykcd 2.5 mg by inhalation every two hours as needed2.5 mg, Inhalation, Every 2 hour PRN (RT), wheezing, shortness of breath, Starting 06/03/20 at 1750take 1 puff(s) by inhalation every six hours as neededAlbuterol 108 (90 Base) MCG/ACT Aero Soln inhaler Inhale 1 puff every 6 hours as needed for Shortness of Breath. ActiveAlbuterol (Eqv-ProAir HFA) 90 mcg/inh inhalation aerosol (20 sources)Start: 60-37-4271zxqv 2 puff(s) by inhalation every four hours Albuterol (Eqv-ProAir HFA) 90 mcg/inh inhalation aerosol 2 puff(s), Inhalation, q4hr Cough and Congestion, 18 gm, Refill(s) 1, [facility], 157, cm, 12/08/21 10:05:00 EDT, Height/Length Dosing, 119, kg, 12/08/21 10:05:00 EDT, Weight Dosing Start Date: 12/11/21 Status: OrderedStart: 29-49-7271gtae 2 puff(s) by inhalation every four hoursAlbuterol (Eqv-ProAir HFA) 90 mcg/inh inhalation aerosol 2 puff(s), Inhalation, q4hr Cough and Congestion, 18 gm, Refill(s) 0, [facility], 158, cm, 10/09/21 15:33:00 EDT, Height/Length Dosing, 112.8, kg, 10/09/21 15:33:00 EDT, Weight Dosing Start Date: 10/09/21 Status: Orderedalbuterol 0.833 mg/ml / ipratropium bromide 0.167 mg/ml inhalation solution (7 sources)Anticholinergic, beta2-Adrenergic AgonistStart: 25-78-1737nhwc 3 mL by inhalation four times dailyDuoNeb 2.5 mg-0.5 mg/3 mL Soln-Inh 3 mL, Inhalation, QID Shortness of breath or wheezing, 180 mL, Refill(s) 0, [facility], 162, cm, 04/06/22 20:38:00 EST, Height/Length Dosing, 112, kg, 04/06/22 20:38:00 EST, Weight Dosing Start Date: 04/08/22 Status: Orderedaspirin 81 mg delayed release oral tablet (20 sources)Platelet Aggregation Inhibitor, Nonsteroidal Anti-inflammatory Drug Start: 62-72-3440xezd 1 tablet by mouth once dailyAspirin 81 mg Tablet,Delayed Release (Dr/Ec) Active 81 MG PO Daily 23 06August 21, 2022 11:00pm Complies with drug therapyStart: 07-23-2018 End: 62-65-8429efkv 1 tablet by mouth once dailyAspirin (Aspir-81) 81 mg Tablet,Delayed Release (Dr/Ec) Discontinued 81 MG PO Daily July 23, 2018 12:00am August 20, 2022 2:10amStart: 05-28-2015 End: 29-75-8858nzmnhka 81 MG Chew Tab Indications: Atrial fibrillation, unspecified type , SSS (sick sinus syndrome) take 1 tablet by mouth daily.. 30 tablet 01/21/2017 Activeazithromycin 250 mg oral tablet (2 sources)Macrolide AntimicrobialStart: 04-09-2022 End: 10-09-0791nczx 1 tablet by mouth once dailyazithromycin 250 mg Tab 250 mg = 1 tab(s), Oral, Daily, X 2 day(s), # 2 tab(s), Refills(s) 0, Pharmacy: [facility], 162, cm, 04/06/22 20:38:00 EST, Height/Length Dosing, 112, kg, 04/06/22 20:38:00 EST, Weight Dosing Start Date: 04/09/22 Stop Date: 04/11/22 Status: OrderedStart: 66-86-2036Idvmzmadx 250 MG 2 tablet on the first day, then 1 tablet daily for 4 days Orally Once a day for 5 day(s) May, ActiveBD Insulin Syringe 27G X 1/2 (2 sources)Start: 66-67-8810NW Insulin Syringe 27G X 1/2 as directed three times daily Feb, Activebenzonatate 200 mg oral capsule (7 sources)Non-narcotic AntitussiveStart: 06-28-9476flmhirkrqof (Tessalon) 200 MG capsule Take 200 mg by mouth as needed in the morning and 200 mg as needed at noon and 200 mg as needed in the evening for cough. 07/31/2022 ActiveBlood Glucose Monitoring Suppl (OneTouch Verio Flex System) w/Device kit (4 sources)Blood Glucose Monitoring Suppl (OneTouch Verio Flex System) w/Device kit ActiveBlood Pressure Monitor KIT (1 source)Start: 37-53-4927Mqqrz Pressure Monitor KIT 1 kit by Does not apply route daily 1 kit 0 07/02/2015 ActiveBlood Pressure Monitoring (ADULT BLOOD PRESSURE CUFF LG) XX KIT (3 sources)Start: 24-46-2678Mktrq-Glucose Sensor (Dexcom G6 Sensor) device (1 source)Start: 40-16-0307Vwfoi-Glucose Sensor (Dexcom G6 Sensor) device Active EACH MC August 29, 2024 12:00ambrexpiprazole 1 mg oral tablet (20 sources)Atypical AntipsychoticStart: 05-48-0864Eqrpwig 1 mg Tab TAKE 1 TABLET DAILY FOR 7 DAYS, THEN 2 DAILY FOR 7 DAYS AND AFTER IF TOLERATED FOR PSYCHOSIS 06/26/2024 Activebrimonidine tartrate 2 mg/ml / brinzolamide 10 mg/ml ophthalmic suspension (2 sources)Carbonic Anhydrase Inhibitor, alpha-Adrenergic AgonistStart: 70-12-7788Oapncijgeafl-Brimonidine (Simbrinza) 1-0.2 % Suspension Apply 1 drop to eye. Pt given sample by Jessica Puentes MD 11/09/23 11/09/2023 Active brompheniramine maleate 0.4 mg/ml / dextromethorphan hydrobromide 2 mg/ml / pseudoephedrine hydrochloride 6 mg/ml oral solution (15 sources)alpha-Adrenergic Agonist, Uncompetitive Q-mmdnbj-B-aspartate Receptor Antagonist, Sigma-1 AgonistStart: 68-55-5103nxjr 5 mL by mouth four times dailyBromfed DM oral syrup 5 mL, Oral, QID for cold symptoms, 200 mL, Refill(s) 0, [facility],158, cm, 10/09/21 15:33:00 EDT, Height/Length Dosing, 112.8, kg, 10/09/21 15:33:00 EDT, Weight Dosing Start Date: 10/09/21 Status: OrderedBrompheniramine / Pseudoephedrine (2 sources)alpha-Adrenergic AgonistStart: 16-83-2071pnqa 5 mL by mouth four times dailyBromfed DM oral syrup 5 mL, Oral, QID for cold symptoms, 200 mL, Refill(s) 0, [facility],158, cm, 10/09/21 15:33:00 EDT, Height/Length Dosing, 112.8, kg, 10/09/21 15:33:00 EDT, Weight Dosing Start Date: 10/09/21 Status: Orderedcalcium carbonate 500 mg chewable tablet (2 sources)Start: 38-91-1110ispy 1 tablet by mouth four times dailyCalcium Carbonate (Antacid (Calcium Carbonate)) 200 mg calcium (500 mg) tablet,chewable Active 200 MG PO Four times daily February 19, 2025 11:00pm Complies with drug therapyStart: 03-29-2023 End: 05-12-6192zqakoyl carbonate (TUMS) chewable tablet 500 mgchlorthalidone 25 mg oral tablet (20 sources)Thiazide-like DiureticStart: 08-29-2022 End: 33-66-2992mqcx 1 tablet by mouth once dailyChlorthalidone 25 mg tablet Active 25 MG PO Daily September 11, 2022 11:00pm Complies with drug therapy cholecalciferol 0.025 mg oral tablet (7 sources)Vitamin DStart: 56-46-5230ptir 1 tablet by mouth once daily cholecalciferol 1000 intl units (25 mcg) oral tablet 25 mcg = 1 tab(s), Oral, Daily, # 30 tab(s), Refills(s) 0, Pharmacy: [facility], 162, cm, 04/06/22 20:38:00 EST, Height/Length Dosing, 112, kg, 04/06/22 20:38:00 EST, Weight Dosing Start Date: 04/08/22 Status: Orderedcitalopram 40 mg oral tablet (20 sources)Serotonin Reuptake InhibitorStart: 22-26-4435sxhp 1 tablet by mouth once daily at bedtimeCitalopram 40 mg tablet Active 40 MG PO Daily at bedtime February 19, 2025 11:00pm Complies withdrug therapyStart: 03-25-2024 End: 47-64-4353Uzrlr: 03-22-2024 End: 35-34-8212exdc 1 tablet by mouth once dailycitalopram (CELEXA) 40 MG tablet Indications: Bipolar 1 disorder (HCC) Take 1 (one) tablet (40 mg total) by mouth daily . 90 tablet 1 08/02/2024 ActiveStart: 10-07-2023 End: 39-79-5153xppg 1 tablet by mouth once dailycitalopram (CELEXA) 20 MG tablet Take 1 (one) tablet (20 mg total) by mouth daily . 30 tablet 2 02/08/2024 03/22/2024 DiscontinuedStart: 08-03-2023 End: 84-00-7339pkzpywdlsr (CELEXA) 10 MG tablet Take half tab daily for 1 week and then 1 tab thereafter . 30 tablet 1 08/03/2023 10/07/2023 Discontinued (Reorder (Suppress CancelRx Message to Pharmacy))clindamycin 300 mg oral capsule (2 sources)Lincosamide AntibacterialStart: 04-04-2024 End: 73-19-3434wqkktcykqio 75 mg oral tablet (4 sources)P2Y12 Platelet InhibitorStart: 81-72-7673nvvv 1 tablet by mouth once dailyClopidogrel 75 mg tablet Active 75 MG PO Daily February 19, 2025 11:00pm Complies with drug therapyStart: 02-18-2023 End: 40-81-4178zyii 75 mg by mouth once daily75 mg, Oral, Daily, First dose on Thu02/18/23 at 0900Continuous Glucose Sensor (Dexcom G6 Sensor) misc (4 sources)Start: 92-38-9855Lnrnguuvwq Glucose Sensor (Dexcom G6 Sensor) misc USE DIRECTED FOR CONTINUOUS GLUCOSE MONITORING, CHANGE EVERY 10 DAYS 05/04/2024 ActiveContinuous Glucose Sensor (Dexcom G7 Sensor) misc (3 sources)Start: 02-02-2025 End: 50-24-3072Ozjuhqtshu Glucose Sensor (Dexcom G7 Sensor) misc Indications: Type 2 diabetes mellitus with hyperglycemia, with long-term current use of insulin (HCC) 1 Bar Every 10 (ten) days 9 each 02/02/2025 05/03/2025 Active Dexcom G6 Mineral Technologist Misc (20 sources)Start: 61-01-9947Gkmjay G6 Mineral Technologist Misc Indications: Type 2 diabetes mellitus with diabetic polyneuropathy, with long-term current use of insulin (HCC) Use as directed for continuous glucose monitoring . 1 each 12/02Start: 55-23-3060Ypcouz G6 Mineral Technologist Misc Indications: Type 2 diabetes mellitus with diabetic polyneuropathy, with long-term current use of insulin (HCC) Use as directed for continuous glucose monitoring . 1 each 12/03/2023 SuspendedStart: 26-65-6102Gvlfcr G6 Mineral Technologist Misc Indications: Type 2 diabetes mellitus with diabetic polyneuropathy, with long-term current use of insulin (HCC) Use as directed for continuous glucose monitoring . 1 each 12/03/2023 ActiveDexcom G6 Sensor Simran (20 sources)Start: 43-50-3895Dygurz G6 Sensor Simran Indications: Type 2 diabetes mellitus with diabetic polyneuropathy, with long-term current use of insulin (HCC) Use as directed for continuous glucose monitoring change every 10days . 3 each 12/03/2023Start: 25-49-9973Bdohsz G6 Sensor Simran Indications: Type 2 diabetes mellitus with diabetic polyneuropathy, with long-term current use of insulin (HCC) Use as directed for continuous glucose monitoring change every 10 days . 3 each 12/03/2023 SuspendedStart: 58-71-0618Fzacgj G6 Sensor Simran Indications: Type 2 diabetes mellitus with diabetic polyneuropathy, with long- term current use of insulin (HCC) Use as directed for continuous glucose monitoring change every 10days . 3 each 12/03/2023 ActiveDexcom G6 Transmitter Simran (20 sources)Start: 67-12-0118Cfrtcl G6 Transmitter Simran Indications: Type 2 diabetes mellitus with diabetic polyneuropathy, withlong-term current use of insulin (HCC) Use as directed for continuous glucose monitoring change every 3 months . 1 each 12/03/2023Start: 72-37-7808Ekymdf G6 Transmitter Simran Indications: Type 2 diabetes mellitus with diabetic polyneuropathy, withlong- term current use of insulin (HCC) Use as directed for continuous glucose monitoring change every 3 months . 1 each 12/03/2023 SuspendedStart: 37-77-5639Epxeiu G6 Transmitter Simran Indications: Type 2 diabetes mellitus with diabetic polyneuropathy, withlong-term current use of insulin (HCC) Use as directed for continuous glucose monitoring change every 3 months . 1 each 12/03/2023 ActiveDiabetic supplies (17 sources)Start: 68-67-8201Lkeoospm supplies Diabetic supplies, Insulin needles and syringes, alcohol swabs- three months supply (3 months). check QIDACHS. No refills. ICD code- E11.9, Print Requisition, Supply Start Date: 01/21 Status: OrdereddiazePAM 5 mg oral tablet (3 sources)BenzodiazepineStart: 66-72-7011jjcgqOIT (VALIUM) 5 MG tablet Indications: Claustrophobia 1 tab prior to exam . 1 tablet 5Active Start: 06-20-2015 End: 42-47-0219udrx 1 tablet by mouth twice daily as needed for anxietyDiazepam 5 MG tablet Discontinued 5 MG PO TWO TIMES DAILY as needed for Anxiety June 20, 2015 1:00am August 29, 2024 1:56pmStart: 07-04-2014 End: 36-09-9320tuji 1 tablet by mouth twice dailyDiazepam (Valium) 5 MG tablet Discontinued 1 TAB PO TWO TIMES DAILY July 04, 2014 1:00am July 06, 2014 12:45pmdicyclomine hydrochloride 10 mg oral capsule (5 sources)AnticholinergicStart: 84-25-2708klck 2 capsules by mouth four times dailyBentyl 10 mg Cap 20 mg = 2 cap(s), Oral, QID, # 20 cap(s), Refills(s) 0, Pharmacy: [id number], 157, cm, 05/04/22 15:39:00 EST, Height/Length Dosing, 130, kg, 05/04/22 15:39:00 EST, Weight Dosing Start Date: 05/04/22 Status: OrderedStart: 01-24-2022 End: 07-29-7696qcyh 1 tablet by mouth three times dailydicyclomine 20 mg Tab 20 mg = 1 tab(s), Oral, TID, X 7 day(s), # 21 tab(s), Refills(s) 0, Pharmacy: [facility] 1155, 157, cm, 01/24/22 10:48:00 EDT, Height/Length Dosing, 115, kg, 01/24/22 10:48:00 EDT, Weight Dosing Start Date: 01/24/22 Stop Date: 01/31/22 Status: OrdereddiphenhydrAMINE hydrochloride 25 mg oral tablet (11 sources)Histamine-1 Receptor AntagonistStart: 05-13-2023 End: 24-57-9358dagw 1 tablet by mouth twice dailydiphenhydrAMINE (BENADRYL) 25 mg tablet Take 1 (one) tablet (25 mg total) by mouth 2 (two) times a day . 60 tablet 0 05/13/2023 06/12/2023 ActiveStart: 02-18-2023 End: 24-49-2279mkyn 1 tablet by mouth every six hours as neededdiphenhydrAMINE (BENADRYL) tablet 25 mgStart: 53-52-8878tlnfgmjccbZVVHJ 50 MG Cap Indications: Atrial fibrillation, unspecified type , SSS (sick sinus syndrome) Take 1 hour prior to pacemaker implant 02/23/17- 7am 1 capsule 01/21/2017 Activedocusate sodium 100 mg oral capsule (2 sources)Start: 94-33-9907mnmb 1 capsule by mouth once dailyDocusate Sodium 100 mg capsule Active 100 MG PO Daily February 19, 2025 11:00pm Complies with drug therapyStart: 06-04-2020 End: 49-24-9566amsd 100 mg by mouth once mg, Oral, Daily, First dose on Thu06/04/20 at 0900 [] Hold for loose stools. DO NOT CRUSH OR CHEW. docusate sodium 50 mg / sennosides, fci 8.6 mg oral tablet (1 source)Start: 93-25-5674hrvh 1 tablet by mouth once daily at bedtime Sennosides-Docusate Sodium (Senna Plus) 8.6-50 mg tablet Active 1 TAB-CAP PO Daily at bedtime February 19, 2025 11:00pm Complies with drug therapy doxycycline hyclate 100 mg oral tablet (20 sources)Tetracycline-class DrugStart: 04-29-2024 End: 96-36-2656bzqo 1 tablet by mouth twice dailydoxycycline hyclate (VIBRA- TABS) 100 MG tablet Take 1 (one) tablet (100 mg total) by mouth 2 (two) times a day for 14 days . 28 tablet 04/29/2024 11:47 AM EST 04/29/2024 05/13/2024 Active Start: 04-04-2024 End: 07-01-6284Axtii: 01-15-2024 End: mg, Oral, 2 times daily, [...] sulfate), Indication: Diabetic Foot InfectionStart: 09-19-2023 End: 24-15-7291xnki 1 capsule by mouth twice dailydoxycycline monohydrate (MONODOX) 100 MG capsule Take 1 (one) capsule (100 mg total) by mouth 2 (two) times a day for 7 days . 14 capsule 0 09/19/2023 09/26/2023 ActiveStart: 11-28-2022 End: 20-02-2585pejw 1 capsule by mouth twice dailydoxycycline hyclate (VIBRAMYCIN) 100 MG capsule Indications: Diabetic ulcer of right foot associated with type 2 diabetes mellitus, unspecified part of foot, unspecified ulcer stage (HCC) Take 1 (one) capsule (100 mg total) by mouth 2 (two) times a day for 10 days . 20 capsule 01/27/2024 02/06/2024ExpiredStart: 08-20-2022 End: 72-44-6509vspt 1 tablet by mouth twice dailyDoxycycline Hyclate 100 mg tablet Discontinued 100 MG PO Twice daily August 19, 2022 11:00pm 2022 12:34pmStart: 08-19-2022 End: 04-45-3449pkkq 1 tablet by mouth every twelve hoursdoxycycline hyclate 100 mg Tab 100 mg = 1 tab(s), Oral, q12hr, X 10 day(s), # 20 tab(s), Refills(s)0, Pharmacy: [facility], 157, cm, 08/19/22 17:10:00 EDT, Height/Length Dosing, 113, kg, 08/19/22 17:10:00 EDT, Weight Dosing Start Date: 08/19/22 Stop Date: 08/29/22 Status: OrderedStart: 06-06-2020 End: 50-63-9774advz 1 capsule by mouth twice dailydoxycycline hyclate (VIBRAMYCIN) 100 MG capsule Take 1 (one) capsule (100 mg total) by mouth 2 (two) times a day for 9 days Start: 06/06/20. 18 capsule 0 06/06/2020 06/15/2020 ActiveStart: 06-04-2020 End: 52-40-7422nsdc 100 mg by mouth every twelve wbakv034 mg, Oral, Every 12 hours, First dose on 06/04/20 at 0500 Do not crush or open. Patient to sit up after administration for 30 minutes after taking and take with at least 8 ounces of water Take 1 hour before or 4 hours after metallic cations (e.g.antacids, aluminum,magnesium, calcium,ferrous sulfate) Indication: Skin & Soft Tissue InfectionStart: 06-03-2020 End: 64-56-7726eolcassumzw (VIBRAMYCIN) oral solid 100 mgDrug or medicament (substance) (2 sources)Emgality Pen 120 mg/mL Pen (2 sources)Start: 87-18-7377Kstdidbg Pen 120 mg/mL Pen every 30 (thirty) days For headaches, had 04/2020; states need to pick it up tomorrow at pharmacy - uses [facility] [place] . 0 06/01/2020 Activefluconazole 150 mg oral tablet (7 sources)Azole AntifungalStart: 92-89-4163ldmxktqmucq (Diflucan) 150 MG tablet 09/26/2022 ActiveFreeStyle Test - (2 sources)Start: 89-83-6155Iafdt: 21-22-2690VkfhTdhet Test - as directed In Vitro QID for 90 days Jun, Active1 ml galcanezumab-gnlm 120 mg/ml auto-injector (10 sources)Start: 00-81-4320Kgcefczl 120 MG/ML auto-injector 07/18/2022 Active Start: 87-61-4133Hobyzktn 120 MG/ML auto-injector USE DIRECTED ONCE EVERY MONTH FOR 30 DAYS 07/18/2022 ActiveStart: 06-01-2020 End: 34-43-9994Xixhulqq Pen 120 mg/mL Pen every 30 (thirty) days For headaches, had 04/2020; states need to pick it up tomorrow at pharmacy [facility] [place] . 0 06/01/2020 02/17/2023 DiscontinuedGLUCOSE MONITOR PRESCRIPTION (3 sources)Start: 42-49-0275RRFKZKR MONITOR PRESCRIPTION Dispense ONE. Patient requires Insulin. 1 Each 1 04/01/2017 ActiveHandicap placard (14 sources)Start: 23-58-6250Miepgwyg placard Handicap placard, See Instructions, 1 EA, 0, Dispense handicap placard, good for 5years., Supply Start Date: 09/30/21 Status: OrderedhydrOXYzine pamoate 100 mg oral capsule (20 sources)AntihistamineStart: 79-55-4542ewfj 1 capsule by mouth once daily at bedtime for sleep and anxietyhydrOXYzine (VISTARIL) 100 MG capsule TAKE 1 CAPSULE BY MOUTH EVERYDAY AT BEDTIME FOR SLEEP AND ANXIETY 03/01/2025 Active Start: 00-95-7682mhuv 1 capsule by mouth three times daily as neededhydrOXYzine (VISTARIL) 50 MG capsule Take 1 (one) capsule (50 mg total) by mouth 3 (three) times a day as needed . 06/26/2024 ActiveStart: 01-12-2024 End: 10-16-5087Hoxuw: 10-15-2023 End: 64-43-2095rdue 1 tablet by mouth once dailyhydrOXYzine (ATARAX) 25 MG tablet Take 1 (one) tablet (25 mg total) by mouth daily . 10/15/2023 01/18/2024 Discontinued (Stop Taking at Discharge)Start: 08-03-2023 End: 47-41-1922eqat 1 tablet by mouth twice daily as needed for anxiety hydrOXYzine (ATARAX) 25 MG tablet Take 1 (one) tablet (25 mg total) by mouth 2 (two) times a day asneeded for anxiety . 30 tablet 2 08/03/2023 09/03/2023 ExpiredStart: 02-19-2023 End: 00-08-0062apxnTWSdjrh (ATARAX) tablet 25 mgStart: 63-38-7674tpvnIOQxqyk pamoate (Vistaril) 25 MG capsule 07/11/2022 ActiveStart: 07-11-2022 End: 00-40-1967eaxb 1 capsule by mouth twice daily as needed for anxiety hydrOXYzine (VISTARIL) 25 MG capsule Take 1 (one) capsule (25 mg total) by mouth 2 (two) times a day as needed for itching or anxiety . 180 capsule 03/25/2024 08/02/2024 Discontinued (Therapy completed)Start: 57-23-6724jkvi 1 capsule by mouth once daily at bedtime as neededhydrOXYzine pamoate (Vistaril) 25 MG capsule TAKE 1 CAPSULE BY MOUTH EVERY DAY AT BEDTIME NEEDEDFOR INSOMNIA 07/11/2022 ActiveStart: 05-31-2020 End: 18-31-0505orreENRkuth (ATARAX) 25 MG tablet 1 (one) tablet (25 mg total) as needed States forgets how many times per day can use--as needed per patient . 0 05/31/2020 02/17/2023 Discontinued End: 50-08-0598btwz 1 capsule by mouth twice dailyhydrOXYzine (VISTARIL) 50 MG capsule Take 1 (one) capsule (50 mg total) by mouth 2 (two) times a day . 01/18/2024 Discontinued (Stop Taking at Discharge)3 ml insulin aspart, human 100 unt/ml pen injector (3 sources)Insulin AnalogStart: 56-16-6301Lrdrfpz Aspart U-100 100 unit/mL (3 mL) insulin pen Active SUBCUT February 19, 2025 11:00pm Complies with drug therapyStart: 01-18-2013 End: 97-28-1533irjmgx 1 [IU] by subcutaneous injection at bedtimeInsulin [...] 100 unt/ml injectable solution (20 sources)Insulin AnalogueStart: 65-41-7488Pmrvtdb Glargine (Lantus U-100 Insulin) 100 unit/mL solution Active UNIT SUBCUT February 19, 2025 11:00pm Complies with drug therapyStart: 38-53-5162spzutc 30 [IU] by subcutaneous injection twice dailyinsulin glargine (LANTUS) 100 unit/mL injection Inject 30 (thirty) Units under the skin 2 (two) times a day . 12/05/2024 ActiveStart: 57-62-4756nmbazt 0.3 mL by subcutaneous injection in the [...] insulin without notifying physician Start: 03-29-2023 End: 15-40-2749bzoxsh 25 [IU] by subcutaneous injection once daily25 Units, Subcutaneous, Nightly, First dose on Thu03/29/23 at 2100 Do not mix with other insulins in a syringe. Do NOT hold basal insulin without notifying physician Start: 74-98-5891vigfgdr glargine (LANTUS SOLOSTAR/BASAGLAR KWIKPEN) 100 unit/mL (3 mL) InPn Inject 25 (twenty five)Units under the skin nightly . 7.5 mL 0 02/20/2023 ActiveStart: 01-14-2023 End: 78-75-7798ycqzxyr glargine (LANTUS SOLOSTAR/BASAGLAR KWIKPEN) 100 unit/mL (3 mL) InPn Inject 25 (twenty five)Units under the skin nightly . 7.5 mL 0 02/20/2023 05/06/2023 Discontinued (Therapy completed)Start: 82-62-6205wirrfo 48 [IU] by subcutaneous injection at bedtimeinsulin glargine 100 UNIT/ML Solution Pen-injector injection Inject 48 Units under the skin at bedtime. 15 mL 1 04/01/2017 ActiveStart: 55-64-8344mtylsc 55 [IU] by subcutaneous injection twice daily in the evening, then inject 60 [IU] by subcutaneous injection in the morningLANTUS 100 unit/mL injection Inject under the skin 2 (two) times a day 55 units in the evening 60 units in the morning 5 03/29/2015 ActiveStart: 59-21-6835DHXGJR 100 unit/mL injection Inject under the skin 2 (two) times a day 55 units in the evening 60 units in the morning 5 03/29/2015 ActiveStart: 07-04-2014 End: 47-83-6932Ezcuaae Glargine (Lantus Solostar U-100 Insulin) 300 UNIT/3 ML insulin pen Discontinued 55 UNITS SQBEDTIME July 04, 2014 1:00am August 29, 2024 1:56pminsulin glargine (LANTUS) 100 UNIT/ML injection vial Inject 60 Units into the skin 2 times daily 0 Activeinsulin lispro 100 unt/ml injectable solution (20 sources)Insulin AnalogueStart: 49-42-3024Udqynho Lispro 100 UNIT/ML solution Indications: Type 2 diabetes mellitus with hyperglycemia, with long-term current use of insulin (HCC) Inject 80 Units under the skin continuously WITH INSULIN PUMP. 80 mL 2 03/07/2025 ActiveStart: 12-05-2024 End: 36-01-7743qzswrs 400 mg by subcutaneous injection once daily, [...] minutes before or immediately after a meal.Start: 37-19-3231tcklfx 2-10 [IU] by subcutaneous injection four times daily at mealtimeinsulin lispro (HumaLOG) 100 unit/mL insulin pen Inject 2-10 Units under the skin 4 (four) times a day with meals and nightly. 15 mL 12 12/05/2024 ActiveStart: 12-03-2024 End: 71-08-7837ocmbfk 400 mg by subcutaneous injection once daily, [...] immediately after a meal. Start: 12-03-2024 End: 02-56-6220eccjwn 400 mg by subcutaneous injection three times [...] minutes before or immediately after a meal.Start: 24-82-4766eordzk 10 [IU] by subcutaneous injection once10 Units, [...] Insulin SC MEALtime PREprandial Start: 09-13-2022 End: 30-53-1844Vhgzsuc Lispro Sliding Scale 0-10 Units, Injection-Insulin, SubCutaneous, Start date 09/13/22 16:30:00 EDT Start Date: 09/13/22 Stop Date: 09/13/22 Status: CompletedStart: 09-13-2022 End: 82-22-4083Jbffrge Lispro Sliding Scale 0-10 Units, Injection-Insulin, SubCutaneous, Start date 09/13/22 11:30:00 EDT Start Date: 09/13/22 Stop Date: 09/13/22 Status: CompletedStart: 09-13-2022 End: 91-39-8260Nylsrvx Lispro Sliding Scale 0-10 Units, Injection-Insulin, SubCutaneous, Start date 09/13/22 7:30:00 EDT Start Date: 09/13/22 Stop Date: 09/13/22 Status: CompletedStart: 07-18-2022 End: 75-06-4650wkdtlca lispro (AdmeLOG,HumaLOG) 100 unit/mL injection Indications: Type 2 diabetes mellitus with diabetic polyneuropathy, with long- term current use of insulin (HCC) Inject up to 150 units once daily via pump . 50 mL 5 12/08/2023 ActiveStart: 04-08-2022 End: 83-84-0273Uphsvrb Lispro Sliding Scale 0-10 Units, Injection-Insulin, SubCutaneous, Start date 04/08/22 12:00:00 EST Start Date: 04/08/22 Stop Date: 04/08/22 Status: CompletedStart: 04-08-2022 End: 64-23-2160Deqhliw Lispro Sliding Scale 0-10 Units, Injection-Insulin, SubCutaneous, Start date 04/08/22 4:00:00 EST Start Date: 04/08/22 Stop Date: 04/08/22 Status: CompletedStart: 04-07-2022 End: 79-05-6234Aigylab Lispro Sliding Scale 0-10 Units, Injection-Insulin, SubCutaneous, Start date 04/07/22 16:00:00 EST Start Date: 04/07/22 Stop Date: 04/07/22 Status: CompletedStart: 09-07-2018 End: 20-06-6867Kmozagt Lispro 100 UNIT/ML solution 07/18/2022 ActiveStart: 09-07-2018 End: 70-41-2312Xqztpwv Lispro (Admelog U-100 Insulin Lispro) 100 unit/mL [...] contact the information source for Protocol details.Start: 85-85-9497Fpmjfhm Lispro (Admelog U-100 Insulin Lispro) 100 unit/mL Solution Active 0 .ROUTE .COMPLEX September 07, 2018 12:00am Patient uses up to 200 Units of Insulin delivered via Omnipod.Start: 07-23-2018 End: 05-86-3637Lwrgbar Lispro UNIT Subcutaneous Before meals and at bedtime July 23, 2018 DiscontinuedStart: 07-23-2018 End: 35-16-7306diwgxp 1 [IU] by subcutaneous injection at bedtimeInsulin [...] Insulin Lispro) 100 unit/mL Solution (1 source)Start: 11-75-7515Peijima Lispro (Admelog U-100 Insulin Lispro) 100 unit/mL [...] Activeinsulin lispro 100 UNIT/ML vial (3 sources)Start: 62-12-8523thmukhm lispro 100 UNIT/ML vial - dose 12 units per meal, can do 6 units if having a smaller meal -also dose before meals and at bedtime for BG >150: 151-200 = 2 units 201-250 = 4 units 251-300 =6 units 301- 350 = 8 units 351-400 = 10 units 1 vial 1 04/01/2017 Activeinsulin lispro 100 units/mL injectable solution (20 sources)Start: 84-31-3264dqbhmrc lispro 100 units/mL injectable solution SubCutaneous, # 10 mL, Refills(s) 0 Start Date: 09/30/21 Status: OrderedStart: 39-16-2868qlhzbit lispro 100 units/mL injectable solution 5 unit(s), [...] . Suspended Iohexol (3 sources)Radiographic Contrast AgentStart: 75-61-6218Dpsvxuu SOLN 3,000 mg Start: 10-07-2022 End: 81-86-4234Zumykft SOLN 15,000 mgisopropyl alcohol 0.7 ml/ml medicated pad (20 sources)Start: 12-08-2023 End: 88-07-0576stjnskv swabs PadM Indications: Type 2 diabetes mellitus with diabetic polyneuropathy, with long-term current use of insulin (HCC) Apply 1 (one) Swab. topically 5 (five) times a day Clean area beforeadministering insulin. . 150 each 5 12/08/2023 ActivelamoTRIgine 25 mg oral tablet (20 sources)Mood Stabilizer, Anti-epileptic AgentStart: 02-08-2024 End: 05-34-0059ljym 1 tablet by mouth twice dailylamoTRIgine (LAMICTAL) 25 MG tablet Take 1 (one) tablet (25 mg total) by mouth 2 (two) times a day . 60 tablet 2 02/08/2024 ActiveStart: 10-07-2023 End: 39-63-9702rawqZGKvzrs (LAMICTAL) 25 MG tablet Take 1 tab daily for 2 weeks and then twice a day thereafter . 30 tablet 2 10/07/2023 02/08/2024 Discontinued (Reorder (Suppress CancelRx Message to Pharmacy))levETIRAcetam 1000 mg oral tablet (20 sources)Anti-epileptic AgentStart: 12-89-7427Wemvvcmpzdyew 1,000 mg tablet Active 1000 MG PO February 19, 2025 11:00pm Complies with drug therapyStart: 12-03-2024 End: 01-64-2020mrlr 750 mg by mouth twice exmdq647 mg, oral, 2 times daily, First dose on Thu12/03/24 at 0900, Look-alike/sound-alike medication -verify indication for use.Start: 01-14-2024 End: 14-73-1916angs 1000 mg by mouth twice daily1,000 mg, Oral, 2 times daily, First dose on Danelle 01/14/24 at 1100Start: 03-29-2023 End: ,000 mg, Oral, 2 times daily, First dose on Thu03/29/23 at 2100 Do Not Crush or Chew if administering orally due to bitter taste. May be crushed if given via tube.Start: 02-18-2023 End: 62-92-7039qhbz 1000 mg by mouth twice daily1,000 mg, Oral, 2 times daily, First dose on Thu02/18/23 at 0900Start: 01-13-2023 End: 22-79-7677htwk 1 tablet by mouth twice dailylevETIRAcetam (KEPPRA) 1000 MG tablet Take 1 (one) tablet (1,000 mg total) by mouth 2 (two) times aday . 60 tablet 09/22/2024 ActiveStart: 24-33-9433yele 1 tablet by mouth twice daily levETIRAcetam 750 mg oral tablet, dispersible 750 mg = 1 tab(s), Oral, BID, Refills(s) 0 Start Date: 09/12/22 Status: OrderedStart: 93-47-6336yggd 1 tablet by mouth every twelve hourslevETIRAcetam (Keppra) 750 MG tablet Take 1 tablet by mouth every 12 (twelve) hours 08/01/2022 ActiveStart: 81-65-5715fkzw 1 tablet by mouth twice dailyKeppra 250 mg Tab 250 mg = 1 tab(s), Oral, BID, # 60 tab(s), Refills(s) 0, Pharmacy: [facility], 157, cm, 02/27/22 12:02:00 EDT, Height/Length Dosing, 113.5, kg, 02/27/22 12:02:00 EDT, Weight Dosing Start Date: 02/27/22 Status: OrderedStart: 42-12-4424vohr 1 tablet by mouth twice daily levETIRAcetam 500 mg oral tablet, dispersible 500 mg = 1 tab(s), BID, Refills(s) 0, Seizure Start Date: 03/14/21 Status: OrderedStart: 91-26-2706uzey 1 tablet by mouth once dailylevETIRAcetam 500 mg oral tablet, dispersible 500 mg = 1 tab(s), Daily, Refills(s) 0, Seizure StartDate: 03/14/21 Status: OrderedStart: 08-04-2019 End: 58-57-4692Ubavmeebgxgfz 500 mg tablet Discontinued 750 MG PO Twice daily August 03, 2019 11:00pm February 20, 2025 11:00amStart: 00-43-7105wcxg 750 mg by mouth twice dailyLevetiracetam Active 750 MG PO Twice daily August 04, 2019 12:00amStart: 04-13-2015 End: 30-73-0822wbdw 2 tablets by mouth twice dailyLevetiracetam 500 MG tablet Discontinued 1000 MG PO TWO TIMES DAILY 60 April 13, 2015 1:00am August 29, 2024 1:56pmStart: 03-02-2015 End: 83-44-3620cnls 500 mg by mouth twice dailyLevetiracetam Active 500 MG PO Twice daily August 04, 2019 12:00amStart: 73-11-0160rswz 1 tablet by mouth twice dailylevETIRAcetam (KEPPRA) [...] (20 sources)Angiotensin Converting Enzyme InhibitorStart: 03-25-2024 End: 02-10-6333Mthio: 09-03-2023 End: 46-85-1650endh 1 tablet by mouth once dailylisinopriL (PRINIVIL,ZESTRIL) 30 MG tablet Indications: Primary hypertension Take 1 (one) tablet (30 mg total) by mouth daily . 90 tablet 1 01/27/2024 02/11/2024 Discontinued (Dose adjustment)Start: 03-31-2023 End: 90-50-6084rypt 1 tablet by mouth once dailylisinopriL (PRINIVIL,ZESTRIL) 20 MG tablet Indications: Hypertensive urgency Take 1 (one) tablet (20 mg total) by mouth daily . 90 tablet 1 05/06/2023 09/03/2023 Discontinued (Dose adjustment)Start: 02-18-2023 End: 69-37-4253fepa 40 mg by mouth once daily at lunch40 mg, Oral, Daily with lunch, First dose on Thu02/18/23 at 1200Start: 09-15-2022 End: 73-14-6364rmzllohyiv 20 mg Tab 40 mg = 2 tab(s), Tab, Oral, Start date 09/15/22 9:00:00 EDT, 09/12/22 17:37:00 EDT Start Date: 09/15/22 Stop Date: 09/15/22 Status: CompletedStart: 08-20-2022 End: 03-45-5818Dzldhplrbo 40 mg tablet Discontinued 40 MG PO As Directed 60 0 August 22, 2022 12:31pm August 6:09am Take half a tablet daily for 2 days then 1 tablet dailyStart: 07-02-2012 End: 21-77-3501irdn 1 tablet by mouth once dailylisinopril (ZESTRIL) 5 MG PO TABS Indications: HTN (hypertension) , A-fib take 1 Tab by mouth daily. 30 Tab 11 07/02/2012 Activetake 1.5 tablets by mouth once dailyLisinopril 20 MG tablet Take 1.5 tablets by mouth daily. Activelithium carbonate 300 mg oral capsule (11 sources)Start: 07-72-9520sxkjric 300 MG Cap Indications: Atrial fibrillation, unspecified [...] Activeloratadine 10 mg oral capsule (20 sources)Start: 17-22-6602bkmi 1 capsule by mouth once dailyLoratadine (Allergy Relief (Loratadine)) 10 mg capsule Active 10 MG PO Daily February 19, 2025 11:00pm Complies with drug therapyStart: 02-11-2024 End: 26-56-3640lpcx 1 tablet by mouth once dailyloratadine (CLARITIN) 10 mg tablet Take 1 (one) tablet (10 mg total) by mouth daily . 90 tablet 1 08/02/2024 Activelosartan potassium 25 mg oral tablet (20 sources)Angiotensin 2 Receptor BlockerStart: 09-30-2021 End: 08-72-2554jodn 1 tablet by mouth once dailylosartan 25 mg Tab 25 mg = 1 tab(s), Oral, Daily, X 90 day(s), # 90 tab(s), Refills(s) 0, Pharmacy:[facility], 158, cm, 09/30/21 14:00:00 EDT, Height/Length Dosing, 112.8, kg, 09/30/21 14:00:00 EDT, Weight Dosing Start Date: 09/30/21 Stop Date: 12/29/21 Status: OrderedStart: 07-14-2017 End: 30-38-9897duyb 1 tablet by mouth once dailyLosartan 25 mg tablet Discontinued 25 MG PO Daily July 23, 2018 12:00am March 24, 2019 7:31am meclizine hydrochloride 25 mg oral tablet (20 sources)AntiemeticStart: 30-57-9083jvga 1 tablet by mouth three times daily as needed for dizzinessmeclizine 25 mg Tab 25 mg = 1 tab(s), Oral, TID, PRN as needed for dizziness, # 30 tab(s), Refills(s) 0, Pharmacy: [facility], 158, cm, 09/30/21 14:00:00 EDT, Height/Length Dosing, 112.8, kg, 09/30/21 14:00:00 EDT, Weight Dosing Start Date: 09/30/21 Status: OrderedStart: 11-14-2020 take 1 tablet by mouth three times daily as needed for dizzinessmeclizine 25 mg Tab 25 mg = 1 tab(s), Oral, TID, PRN as needed for dizziness, # 30 tab(s), Refills(s) 0, Pharmacy: [facility], 157, cm, 11/14/20 15:53:00 EDT, Height/Length Dosing, 117.1, kg, 11/14/20 15:53:00 EDT, Weight Dosing Start Date: 11/14/20 Status: Orderedmeloxicam 15 mg oral tablet (20 sources)Nonsteroidal Anti-inflammatory DrugStart: 09-30-2021 End: 00-76-6105deod 1 tablet by mouth once dailymeloxicam 15 mg Tab 15 mg = 1 tab(s), Oral, Daily, X 90 day(s), # 90 tab(s), Refills(s) 0, Pharmacy: [facility], 158, cm, 09/30/21 14:00:00 EDT, Height/Length Dosing, 112.8, kg, 09/30/21 14:00:00 EDT, Weight Dosing Start Date: 09/30/21 Stop Date: 12/29/21 Status: OrderedStart: 07-14-2017 End: 27-72-1662ykxw 1 tablet by mouth once daily as needed for painMeloxicam 15 mg Tablet Discontinued 15 MG PO Daily as needed for pain 0 0 January 29, 2019 10:26am March 24, 2019 7:32ammetFORMIN hydrochloride 1000 mg oral tablet (20 sources)BiguanideStart: 03-29-2015 End: 80-15-1950ptza 1 tablet by mouth twice dailyMetformin 1,000 mg tablet Active 1000 MG PO Twice daily July 23, 2018 12:00am Complies with drug therapy Start: 08-22-2012 End: 14-88-9163fysa 2 tablets by mouth twice dailyMetformin 500 MG tablet Discontinued 1000 MG PO TWO TIMES DAILY August 22, 2012 12:00am August 1:56pmtake 1 tablet by mouth twice daily at mealtimemetFORMIN (GLUMETZA) 1000 MG (MOD) 24 hr tablet Take 1,000 mg by mouth 2 (two) times a day with meals. Activemethocarbamol 500 mg oral tablet (1 source)Muscle RelaxantStart: 06-02-2022 End: 91-51-8408tkba 1 tablet by mouth three times dailyRobaxin 500 mg Tab 500 mg = 1 tab(s), Oral, TID, X 3 day(s), # 9 tab(s), Refills(s) 0, Pharmacy: [facility], 157, cm, 06/02/22 15:53:00 EST, Height/Length Dosing, 116.2, kg, 06/02/22 15:53:00 EST, Weight Dosing Start Date: 06/02/22 Stop Date: 06/05/22 Status: Orderedmetoprolol tartrate 25 mg oral tablet (20 sources)beta-Adrenergic BlockerStart: 75-35-1289ltkj 2 tablets by mouth once dailyMetoprolol Tartrate 25 mg tablet Active 50 MG PO Daily February 20, 2025 11:02am Complies with drug therapyStart: 03-67-9702zwmc 1 tablet by mouth every twenty-four hoursMetoprolol Succinate 50 mg tablet extended release 24 hr Active MG PO August 29, 2024 12:00amStart: 04-27-2024 End: 72-39-8678ycbc 25 mg by mouth twice daily25 mg, Oral, 2 times daily, First dose (after last modification) on Thu04/27/24 at 0900Start: 04-01-2024 End: 87-24-1409Pbeso: 01-18-2024 End: 07-63-5857bfvx 25 mg by mouth once daily25 mg, Oral, Daily, First dose (after last modification) on Thu01/18/24 at 0900, Hold if sbpStart: 10-13-2023 End: 84-09-6502sevc 1 tablet by mouth once dailymetoprolol succinate (TOPROL-XL) 50 MG 24 hr tablet Indications: Primary hypertension Take 1 (one) tablet (50 mg total) by mouth daily . 90 tablet 1 08/02/2024 ActiveStart: 02-20-2023 End: 54-37-1116qupp 1 tablet by mouth once dailymetoprolol succinate (TOPROL-XL) 25 MG 24 hr tablet Indications: Hypertensive urgency Take 1 (one) tablet (25 mg total) by mouth daily . 90 tablet 1 05/06/2023 10/13/2023 Discontinued (Dose adjustment)Start: 02-18-2023 End: 68-04-6405zlmk 50 mg by mouth once daily50 mg, Oral, Daily, First dose on Thu02/18/23 at 0900 DO NOT CRUSH OR CHEW.Start: 05-63-5427cdpj 1 tablet by mouth in the morningmetoprolol tartrate (Lopressor) 50 MG tablet Take 50 mg by mouth in the morning and 50 mg in the evening. Take with meals. 09/19/2022 Active Start: 09-15-2022 End: 50-38-0801Jmdrspcxoa tartrate 25 mg Tab 25 mg = 1 tab(s), Tab, Oral, Start date 09/15/22 9:00:00 EDT, 09/12/22 17:37:00 EDT Start Date: 09/15/22 Stop Date: 09/15/22 Status: CompletedStart: 06-03-2020 End: 45-59-6262jcps 12.5 mg by mouth twice daily12.5 mg, Oral, 2 times daily, First dose on Thu06/03/20 at 2330Start: 01-29-2019 End: 11-09-0626ldwj 1 tablet by mouth once dailyMetoprolol Succinate 50 mg Tablet Extended Release 24 Hr Discontinued 50 MG PO Daily 0 0 January 28, 2019 11:00pm August 20, 2022 2:13amStart: 07-23-2018 End: 08-42-8875wfrx 1 tablet by mouth twice dailyMetoprolol Tartrate 25 mg tablet Discontinued 25 MG PO Twice daily September 11, 2022 11:00pm February 20, 2025 11:29amStart: 08-22-2012 End: 42-24-0450Hgbaysphwy Tartrate 25 MG tablet Discontinued 12.5 MG PO TWO TIMES DAILY August 22, 2012 12:00am August 29, 2024 1:56pmmetoprolol tartrate (Lopressor) 25 MG tablet every 12 (twelve) hours Active End: 20-13-1667xnes 1 tablet by mouth every twenty-four hoursmetoprolol [...] 0 Activemiscellaneous medical supply Mis (20 sources)Start: 86-20-5767vxcbfqdlmyhup medical supply Misc 1 each by Miscellaneous route daily . 100 each 2 12/10/2023Start: 19-14-2485hvpkfscyzetmg medical supply [facility] 1 each by Miscellaneous route daily . 100 each 2 12/10/2023 SuspendedStart: 81-98-2641pqfnkhphfvfwo medical supply [facility] 1 each by Miscellaneous route daily . 100 each 2 12/10/2023 Activenitrofurantoin, macrocrystals 100 mg oral capsule (1 source)Nitrofuran AntibacterialStart: 10-30-2021 End: 73-20-9127zwpj 1 capsule by mouth twice daily at [...] oral capsule (2 sources)Nitrofuran AntibacterialStart: 06-18-2023 End: 65-24-2445lfvq 1 capsule by mouth twice dailynitrofurantoin, macrocrystal- monohydrate, (MACROBID) 100 MG capsule Take 1 (one) capsule (100 mg total) by mouth 2 (two) times a day for 7 days . 14 capsule 0 06/18/2023 06/25/2023 Active nortriptyline 25 mg oral capsule (20 sources)Tricyclic AntidepressantStart: 94-46-8457haup 1 capsule by mouth once daily at bedtimeNortriptyline 25 mg capsule Active 25 MG PO Daily at bedtime February 19, 2025 11:00pm Complies with drug therapyStart: 06-22-2023 End: 63-03-3467xhzz 1 capsule by mouth once dailynortriptyline (PAMELOR) 25 MG capsule Indications: Chronic nonintractable headache, unspecified headache type , Insomnia, unspecified type Take 1 (one) capsule (25 mg total) by mouth nightly . 90 capsule 1 08/02/2024 ActiveStart: 07-23-2018 End: 16-09-2044htoy 1 capsule by mouth once dailyNortriptyline (Pamelor) 50 mg Capsule Discontinued 50 MG PO Daily July 23, 2018 12:00am September 07, 2018 1:57pmofloxacin 3 mg/ml ophthalmic solution (7 sources)Quinolone AntimicrobialStart: 49-72-4338hmwldvwul (Ocuflox) 0.3 % ophthalmic solution 10/15/2022 ActiveStart: 82-55-9255jhjy 1 drop(s) into the eye(s) four times dailyofloxacin (Ocuflox) 0.3 % ophthalmic solution INSTILL 1 DROP INTO LEFT EYE FOUR TIMES A DAY 10/15/2022 Activeomeprazole 40 mg delayed release oral capsule (20 sources)Proton Pump InhibitorStart: 89-34-7011xbcz 1 capsule by mouth once dailyomeprazole (PRILOSEC) 40 MG capsule Take 1 (one) capsule (40 mg total) by mouth daily . 90 capsule 1 07/15/2024 ActiveStart: 09-30-2021 End: 96-08-8196xafw 1 capsule by mouth once dailyomeprazole 40 mg Cap-DR 40 mg = 1 cap(s), Oral, Daily, X 90 day(s), # 90 cap(s), Refills(s) 0, Pharmacy: [facility], 158, cm, 09/30/21 14:00:00 EDT, Height/Length Dosing, 112.8, kg, 09/30/21 14:00:00 EDT, Weight Dosing Start Date: 09/30/21 Stop Date: 12/29/21 Status: OrderedStart: 90-83-6977fznj 40 mg by mouth once dailyOmeprazole Magnesium [Prilosec] 40 MG Oral Daily July 23, 2018 ActiveStart: 07-23-2018 End: 18-65-3207qwzd 40 mg by mouth once dailyOmeprazole Magnesium (Prilosec) 10 mg Susp,Delayed Release For Recon Discontinued 40 MG PO Daily July 23, 2018 12:00am February 20, 2025 11:03amStart: 08-02-4854hdwn 40 mg by mouth twice dailyOmeprazole Magnesium (Prilosec) 10 mg Susp,Delayed Release For Recon Active 40 MG PO Twice daily July 23, 2018 1:00amStart: 08-22-2012 End: 56-75-1544wkqa 1 capsule by mouth twice dailyomeprazole (PRILOSEC) 40 MG capsule Take 1 (one) capsule (40 mg total) by mouth 2 (two) times a day. 60 capsule 0 03/30/2023 05/06/2023 Discontinued (Therapy completed)take 2 capsules by mouth once dailyomeprazole (PRILOSEC) [address] Indications: A-fib , Syncope Take 40 mg by mouth daily. Activeomeprazole 40 mg Cap-DR (7 sources)Start: 09-30-2021 End: 54-63-8803lkjf 1 capsule by mouth once dailyomeprazole 40 mg Cap-DR 40 mg = 1 cap(s), Oral, Daily, X 90 day(s), # 90 cap(s), Refills(s) 0, Pharmacy: [facility], 158, cm, 09/30/21 14:00:00 EDT, Height/Length Dosing, 112.8, kg, 09/30/21 14:00:00 EDT, Weight Dosing Start Date: 09/30/21 Stop Date: 12/29/21 Status: OrderedStart: 07-54-8435mwdhxqlevq 40 mg Cap-DR 40 mg = 1 cap(s), Oral, Daily, Control of stomach acid Start Date: 10/20/17 Status: OrderedOmnipod 5 G6 Pods, Gen 5, Crtg (20 sources)Start: 44-36-1603Tfbgwjf 5 G6 Pods, Gen 5, Crtg 01/29/2024Start: 17-38-4513Bwfafom 5 G6 Pods, Gen 5, Crtg 01/29/2024 SuspendedStart: 01-29-2024 Omnipod 5 G6 Pods, Gen 5, Crtg 01/29/2024 ActiveOmnipod 5 G6-G7 Pods, Gen 5, Crtg (20 sources)Start: 78-52-2315Wjjmllr 5 G6-G7 Pods, Gen 5, Crtg 06/01/2024 Active Omnipod Insulin Refill Crtg (20 sources)Start: 43-83-8472Vomceyt Insulin Refill Crtg 04/16/2020Start: 35-48-7133Tgcmtko Insulin Refill Crtg 04/16/2020 SuspendedStart: 04-16-2020 Omnipod Insulin Refill Crtg 04/16/2020 ActiveStart: 31-42-1551Khqwivj Insulin Refill Crtg24 hr paliperidone 9 mg extended release oral tablet (20 sources)Atypical AntipsychoticStart: 32-37-3416vdly 1 tablet by mouth once dailypaliperidone (INVEGA) 9 MG 24 hr tablet Take 1 (one) tablet (9 mg total) by mouth daily . 03/01/2025 ActiveStart: 26-81-4794isgo 1 tablet by mouth every twenty-four hoursPaliperidone 9 mg tablet extended release 24hr Active 9 MG PO February 19, 2025 11:00pm Complieswith drug therapyStart: 07-27-2024 End: 32-95-4042ftar 1 tablet by mouth once dailypaliperidone (INVEGA) 6 MG 24 hr tablet Take 1 (one) tablet (6 mg total) by mouth daily . 07/27/2024 03/16/2025 Discontinued (Dose adjustment)pantoprazole 40 mg delayed release oral tablet (20 sources)Proton Pump InhibitorStart: 18-03-3786ycrc 1 tablet by mouth once Pantoprazole 40 mg tablet,delayed release (DR/EC) Active 40 MG PO Once February 19, 2025 11:00pmComplies with drug therapyStart: 07-31-2023 End: 87-57-2578usmr 1 tablet by mouth once dailypantoprazole (PROTONIX) 40 MG tablet Indications: Gastroesophageal reflux disease, unspecified whether esophagitis present Take 1 (one) tablet (40 mg total) by mouth daily . 90 tablet 1 08/02/2024 ActiveStart: 04-09-2023 End: 59-40-3372eisr 1 tablet by mouth once dailypantoprazole (PROTONIX) 40 MG tablet Indications: Gastroesophageal reflux disease, unspecified whether esophagitis present Take 1 (one) tablet (40 mg total) by mouth daily . 90 tablet 1 05/15/2023 ActiveStart: 03-30-2023 End: 16-54-5725yppoknejqjiz (PROTONIX) EC tablet 40 mgStart: 02-18-2023 End: 45-48-6599rivt 40 mg by mouth once daily before guswnntmg53 mg, Oral, Every morning before breakfast, First dose on 02/18/23 at 0730 DO NOT CRUSH OR CHEW.Start: 61-17-7839bumn 1 tablet by mouth once dailypantoprazole 40 mg Oral EC Tab 40 mg = 1 tab(s), Oral, Daily, # 30 tab(s), Refills(s) 0 Start Date: 04/07/22 Status: OrderedStart: 50-94-9538hbym 1 tablet by mouth once daily pantoprazole 40 mg Oral EC Tab 40 mg = 1 tab(s), Oral, Daily, # 30 tab(s), Refills(s) 0 Start Date:04/07/22 Status: OrderedStart: 06-03-2020 End: 38-30-9200cvbs 40 mg by mouth twice daily40 mg, Oral, 2 times daily, First dose on Thu06/03/20 at 2100 DO NOT CRUSH OR CHEW.take 1 dose by mouth once daily before breakfastpantoprazole Sodium 40 MG Pack Take 1 packet by mouth every morning before breakfast. ActivePen [place] 10/07 (2 sources)Start: 64-85-2878Teq [place] 10/07 as directed twice daily Feb, Activepetrolatum 0.57 mg/mg / zinc oxide 0.17 mg/mg paste (20 sources)Start: 13-31-8495qtpi oxide-white petrolatum 17-57 % Pste Apply 1 Application topically daily . 113 g 2 08/02/2024 Activepolyethylene glycol 3350 28967 mg powder for oral solution (20 sources)Osmotic LaxativeStart: 78-01-5462Vpukrxxnpays Glycol 3350 17 gram powder in packet Active GM August 29, 2024 12:00amStart: 19-61-2418mvdlftxgjrlx glycol (MIRALAX) 17 gram powder Take 17 (seventeen) g by mouth daily as needed (constipation) . 100 packet 1 08/02/2024 ActiveStart: 02-11-2024 End: 91-30-1831vdpollqphyje glycol (GLYCOLAX) 17 gram/dose powder Take 17 (seventeen) g by mouth daily . 510 g 2 02/11/2024 03/22/2024 Discontinued (Therapy completed)Start: 10-13-2023 End: 33-75-8249eeqohvowwpmk glycol (GLYCOLAX) 17 gram/dose powder Take 17 (seventeen) g by mouth daily as needed (constipation) . 238 g 1 02/11/2024 02/11/2024 Discontinued (Duplicate order (Suppress CancelRx Message to Pharmacy))Start: 56-56-7903NhkpIye oral powder for reconstitution 17 gram, Oral, Daily, 255 gram, Refill(s) 0, dissolve in water before taking, [facility], 158, cm, 11/04/21 11:29:00 EDT, Height/Length Dosing, 113, kg, 11/04/21 11:29:00 EDT, Weight Dosing Start Date: 11/11/21 Status: OrderedStart: 09-07-2018 End: 65-74-0565Vlzevnyfykgd Glycol 3350 (Miralax) 17 gram/dose Powder Discontinued 17 GM PO Daily September 06, 201811:00pm March 24, 2019 7:33am prednisoLONE acetate 10 mg/ml ophthalmic suspension (7 sources)CorticosteroidStart: 31-68-3318lawuiwvrMLLW acetate (Pred-Forte) 1 % ophthalmic suspension 10/15/2022 ActiveStart: 10-37-9308wzsk 1 drop(s) into the eye(s) four times dailyprednisoLONE acetate (Pred-Forte) 1 % ophthalmic suspension INSTILL 1 DROP INTO LEFT EYE FOUR TIMESA DAY 10/15/2022 Active predniSONE 20 mg oral tablet (1 source)Start: 10-09-2021 End: 84-29-9945uegl 3 tablets by mouth once dailypredniSONE 20 mg Tab 60 mg = 3 tab(s), Oral, Daily, X 5 day(s), # 15 tab(s), Refills(s) 0, Pharmacy: [facility], 158, cm, 10/09/21 15:33:00 EDT, Height/Length Dosing, 112.8, kg, 10/09/21 15:33:00 EDT, Weight Dosing Start Date: 10/09/21 Stop Date: 10/14/21 Status: Orderedpregabalin 75 mg oral capsule (20 sources)Start: 60-23-2549wlql 1 capsule by mouth once dailyPregabalin 75 mg capsule Active 75 MG PO Daily February 19, 2025 11:00pm Complies with drug therapyStart: 12-03-2024 End: 20-10-0161ynrq 100 mg by mouth once shcso124 mg, oral, Nightly, First dose on Thu12/03/24 at 2200, Look-alike/sound-alike medication. Verifyindication for useStart: 07-14-2024 End: 51-83-0671rwju 1 capsule by mouth twice dailypregabalin (LYRICA) 75 MG capsule Indications: DDD (degenerative disc disease), lumbar , Lumbar radi culopathy Take 1 (one) capsule (75 mg total) by mouth 2 (two) times a day (Days supply per fill: 30) . 60 capsule 03/21/2025 04/20/2025 ActiveStart: 01-13-2024 End: 37-03-4793xyjm 1 capsule by mouth twice dailypregabalin (LYRICA) 75 MG capsule Indications: DDD (degenerative disc disease), lumbar , Lumbar radi culopathy Take 1 (one) capsule (75 mg total) by mouth 2 (two) times a day (Days supply per fill: 30) Start: 06/12/24. 60 capsule 06/12/2024 07/12/2024 Discontinued (Reorder (Suppress CancelRx Messageto Pharmacy))Start: 01-12-2024 End: 87-23-9874orya 150 mg by mouth once ybhai788 mg, Oral, Nightly, First dose on Thu01/12/24 at 2300Start: 12-08-2023 End: 02-57-2220bnji 1 capsule by mouth twice dailypregabalin (LYRICA) 75 MG capsule Indications: DDD (degenerative disc disease), lumbar , Lumbar radi culopathy Take 1 (one) capsule (75 mg total) by mouth 2 (two) times a day (Days supply per fill: 30) . 60 capsule 12/08/2023 01/11/2024 Discontinued (Reorder (Suppress CancelRx Message to Pharmacy))Start: 03-29-2023 End: 27-57-2092vyxl 75 mg by mouth twice daily75 mg, Oral, 2 times daily, First dose on Thu03/29/23 at 2100Start: 02-20-2023 End: 48-25-6659fenx 3 capsules by mouth twice dailypregabalin (LYRICA) 25 MG capsule Indications: Seizure (HCC) Take 3 (three) capsules (75 mg total) by mouth 2 (two) times a day for 10 days . 60 capsule 0 02/20/2023 05/06/2023 Discontinued (Therapy completed)Start: 02-19-2023 End: 08-57-5388xvfslrmtcf (LYRICA) capsule 25 mgStart: 04-08-2022 End: 81-34-1851tthx 75 mg by mouth twice daily75 mg, Oral, 2 times daily, First dose on Thu02/18/23 at 0400Start: 06-04-2020 End: 68-63-9184vjfslxejpj (LYRICA) capsule 150 mgStart: 08-04-2019 End: 69-87-7903iteg 1 capsule by mouth at bedtimePregabalin 150 mg capsule Discontinued 150 MG PO Bedtime August 03, 2019 11:00pm February 20, 2025 11:04amStart: 69-48-1932tpvw 100 mg by mouth at bedtimePregabalin [Lyrica] 100 MG Oral Bedtime 0 January 29, 2019 ActiveStart: 01-29-2019 End: 20-68-3595Fgnsxuegin (Lyrica) 300 mg Capsule Discontinued 100 MG PO Bedtime 0 0 January 29, 2019 10:26am August 04, 2019 5:25pm Diabetes mellitus Type 2 diabetes mellitus without complicationsStart: 09-07-2018 End: 03-34-7057svqx 1 capsule by mouth at bedtimePregabalin (Lyrica) 300 mg Capsule Discontinued 300 MG PO Bedtime 0 0 September 09, 2018 11:54am January 29, 2019 10:28am Diabetes mellitus Type 2 diabetes mellitus without complicationsStart: 07-23-2018 End: 91-93-8818voak 150 mg by mouth once dailyPregabalin 150 MG Oral Daily July 23, 2018 DiscontinuedStart: 07-23-2018 End: 20-15-4105Zcerijhfpe (Lyrica) 200 mg capsule Discontinued 150 MG PO Daily July 23, 2018 12:00am August 1:58pmStart: 06-15-2015 End: 17-40-3612ctse 2 capsules by mouth three times dailyPregabalin [...] mg oral tablet (20 sources)PhenothiazineStart: 08-20-2022 End: 96-16-9989hfqd 1 tablet by mouth every six hours as needed for nausea Promethazine 25 mg tablet Active 25 MG PO Q6H as needed for Nausea August 19, 2022 11:00pm Complies with drug therapyStart: 29-37-8211Atqzrorloxto Active MG TABLET August 20, 2022 12:00amStart: 55-86-9382bgon 1 tablet by mouth three times dailypromethazine 25 mg Tab 25 mg = 1 tab(s), Oral, TID, # 15 tab(s), Refills(s) 0, Pharmacy: [facility], 157, cm, 01/24/22 10:48:00 EDT, Height/Length Dosing, 115, kg, 01/24/22 10:48:00 EDT, Weight Dosing Start Date: 01/24/22 Status: OrderedStart: 07-23-2018 End: 18-86-7286qssj 1 tablet by mouth every six hours as needed for nausea Promethazine 25 mg Tablet Discontinued 25 MG PO Every 6 hours as needed for Nausea July 23, 2018 12:00am September 07, 2018 1:59pmpromethazine (Phenergan) 25 MG tablet every 12 (twelve) hours Activesaccharomyces boulardii 250 mg oral capsule (14 sources)Start: 72-92-9890hgue 1 capsule by mouth twice daily at mealtime Saccharomyces Boulardii 250 mg Capsule Active 250 MG PO Twice daily with meals 60 0 August 21, 2022 11:00pm Complies with drug therapy0.25 mg, 0.5 mg dose 1.5 ml semaglutide 1.34 mg/ml pen injector (3 sources)Start: 02-02-2025 End: 43-22-6226vbvopd 0.5 mg by subcutaneous injection every weeksemaglutide (Ozempic, 0.25 or 0.5 MG/DOSE,) 2 MG/1.5ML solution pen-injector Indications: Type 2 diabetes mellitus with hyperglycemia, with long-term current use of insulin (HCC) Inject 0.5 mg under the skin 1 (one) time per week 4.5 mL 1 03/07/2025 08/22/2025 ActiveSharps Container - (2 sources)Start: 94-88-1924Bkahkd Container - as directed for insulin pen needles/lancets/syringes as directed QID please fillwith 4 qt or 5 qt container Apr, Activeterconazole 8 mg/ml vaginal cream (7 sources)Azole AntifungalStart: 36-35-3503fownvbulujb (Terazol 3) 0.8 % vaginal cream 09/24/2022 ActiveStart: 45-59-0135kutskouereo (Terazol 3) 0.8 % vaginal cream INSERT ONE APPLICATORFUL VIA VAGINAL ROUTE ONCE DAILY AT BEDTIME FOR 3 DAYS 09/24/2022 Ktjzay81 hr timolol 5 mg/ml ophthalmic solution (20 sources)beta-Adrenergic BlockerStart: 12-15-2023 End: 23-58-1133gxqz 1 drop(s) into the eye(s) once dailytimolol (TIMOPTIC) 0.5 % ophthalmic solution Administer 1 (one) drop into the left eye daily . 12/14 ActivetiZANidine 4 mg oral capsule (20 sources)Central alpha-2 Adrenergic AgonistStart: 75-73-1742prci 1 capsule by mouth once daily at bedtime as neededTizanidine 4 mg capsule Active 4 MG PO Daily at bedtime as needed February 19, 2025 11:00pm Complies with drug therapyStart: 12-03-2024 End: 01-19-8373iuaq 4 mg by mouth three times daily4 mg, oral, 3 times daily, First dose on Thu12/03/24 at 0800, Look-alike/sound-alike medication - verify indication for use.Start: 42-70-8047Ccmhdbtlfg 4 mg tablet Active MG TABLET August 29, 2024 12:00amStart: 07-14-2024 End: 51-35-0064afxm 2 tablets by mouth once dailytiZANidine (Zanaflex) 4 MG tablet Indications: DDD (degenerative disc disease), lumbar Take 2 tabs p.o. nightly . 60 tablet 3 03/21/2025 ActiveStart: 06-12-2024 End: 32-47-1636rquv 2 tablets by mouth once dailytiZANidine (Zanaflex) 4 MG tablet Indications: DDD (degenerative disc disease), lumbar Take 2 tabs p.o. nightly Start: 06/12/24. 60 tablet 06/12/2024 07/12/2024 Discontinued (Reorder (Suppress CancelRx Message to Pharmacy))Start: 04-27-2024 End: 67-61-5547ryzq 4 mg by mouth once daily4 mg, Oral, Nightly, First dose (after last modification) on Thu04/27/24 at 0200Start: 02-04-2024 End: 61-59-6662jqxm 2 tablets by mouth once dailytiZANidine (Zanaflex) 4 MG tablet Indications: DDD (degenerative disc disease), lumbar Take 2 tabs p.o. nightly . 60 tablet 05/13/2024 06/10/2024 Discontinued (Reorder (Suppress CancelRx Message to Pharmacy))Start: 02-03-2024 End: 99-55-0650tkXXWjbiqf (Zanaflex) 4 MG tablet Indications: DDD (degenerative disc disease), lumbar Take 1 (one)capsule (4 mg total) by mouth See Admin Instructions Take 2 tabs p.o. nightly . - Oral . 60 tablet 02/03/2024 02/04/2024 Discontinued (Reorder (Suppress CancelRx Message to Pharmacy))Start: 02-02-2024 End: 66-69-9183xeIWNacufi (ZANAFLEX) 4 MG capsule Indications: DDD (degenerative disc disease), lumbar , Lumbar radiculopathy Take 1 (one) capsule (4 mg total) by mouth See Admin Instructions Take 2 tabs p.o. nightly . 60 capsule 3 03/09/2024 03/09/2024 DiscontinuedStart: 33-26-1438yjcv 2 tablets by mouth once dailytiZANidine (ZANAFLEX) 4 MG tablet Indications: Muscle spasms of both lower extremities Take 2 tabs p.o. nightly . 60 tablet 01/13/2024 ActiveStart: 01-12-2024 End: 35-75-7712ayqq 8 mg by mouth once daily8 mg, Oral, Nightly, First dose on Thu01/12/24 at 2300Start: 12-12-2023 End: 91-99-6580omut 2 tablets by mouth once dailytiZANidine (ZANAFLEX) 4 MG tablet Indications: Muscle spasms of both lower extremities Take 2 tabs p.o. nightly Start: 12/12/23. 60 tablet 12/12/2023 01/11/2024 Discontinued (Reorder (Suppress CancelRx Message to Pharmacy))Start: 20-74-6185zjgx 2 tablets by mouth once dailytiZANidine (ZANAFLEX) 4 MG tablet Indications: Muscle spasms of both lower extremities Take 2 tabs p.o. nightly Start: 12/12/23. 60 tablet 12/12/2023 ActiveStart: 03-47-8450qmzv 2 tablets by mouth once dailytiZANidine (ZANAFLEX) 4 MG tablet Indications: Muscle spasms of both lower extremities Take 2 tabs p .o. nightly Start: 12/12/23. 60 tablet 12/12/2023 ActiveStart: 07-01-2023 End: 37-50-4201rhvn 1 tablet by mouth twice daily as needed for muscle spasms tiZANidine (ZANAFLEX) 4 MG tablet Indications: Muscle spasms of both lower extremities Take 1 (one)tablet (4 mg total) by mouth 2 (two) times a day as needed for muscle spasms . 60 tablet Discontinued (Reorder (Suppress CancelRx Message to Pharmacy))Start: 05-06-2023 End: 61-88-7154muve 1 capsule by mouth twice daily as needed for muscle spasms tiZANidine (ZANAFLEX) 4 MG capsule Indications: Muscle spasms of both lower extremities Take 1 (one) capsule (4 mg total) by mouth 2 (two) times a day as needed for muscle spasms (muscle spasms) . 60capsule 0 08/10/2023 08/11/2023 Discontinued (Cost of medication)Start: 04-30-2023 End: 61-49-5540lasq 1 capsule by mouth once dailytiZANidine (ZANAFLEX) 2 MG capsule Take 1 (one) capsule (2 mg total) by mouth nightly for 7 days . 7 capsule 0 04/30/2023 05/06/2023 Discontinued (Therapy completed)Start: 02-18-2023 End: 42-55-0079qeev 12 mg by mouth once daily12 mg, Oral, Nightly, First dose on Thu02/18/23 at 2300Start: 10-06-2022 End: 97-73-5486ixdjmujkiz (ZANAFLEX) tabletStart: 37-60-9080ooGHBenggq (Zanaflex) 6 MG capsule 09/23/2022 ActiveStart: 09-12-2022 End: 57-57-0450ucpw 2 capsules by mouth at bedtimeTizanidine 6 mg capsule Discontinued 12 MG PO Bedtime September 11, 2022 11:00pm February 20, 2025 11:07amStart: 09-68-2209tpbh 12 mg by mouth at bedtimeTizanidine Active 12 MG PO Bedtime September 12, 2022 12:00amStart: 08-20-2022 End: 86-88-2815pzgo 1 tablet by mouth three times daily as needed for muscle spasmsTizanidine 4 mg tablet Discontinued 4 MG PO Three times daily as needed for Muscle Spasm August 19, 2022 11:00pm September 12, 2022 6:07amStart: 24-70-0018xlse 3 tablets by mouth once daily at bedtimeZanaflex 4 mg Tab 12 mg = 3 tab(s), Oral, Once a day (at bedtime), # 30 tab(s), Refills(s) 1, Pharmacy: [facility], 157, cm, 12/12/21 16:54:00 EDT, Height/Length Dosing, 114.8, kg, 12/13/2215:54:00 EDT, Weight Dosing Start Date: 12/29/21 Status: OrderedStart: 46-25-0732ieiv 3 tablets by mouth once daily at bedtimeZanaflex 4 mg Tab 12 mg = 3 tab(s), Oral, Once a day (at bedtime), # 30 tab(s), Refills(s) 1, Pharmacy: [facility], 157, cm, 12/12/21 16:54:00 EDT, Height/Length Dosing, 114.8, kg, 12/13/2215:54:00 EDT, Weight Dosing Start Date: 12/12/21 Status: OrderedStart: 55-41-4290ijsw 3 tablets by mouth once daily at bedtime Zanaflex 4 mg Tab 12 mg = 3 tab(s), Oral, Once a day (at bedtime), # 30 tab(s), Refills(s) 0, Pharmacy: [facility], 158, cm, 10/09/21 15:33:00 EDT, Height/Length Dosing, 112.8, kg, 10/09/21 15:33:00 EDT, Weight Dosing Start Date: 10/28/21 Status: OrderedStart: 60-61-4561uciw 3 tablets by mouth once daily at bedtimeZanaflex 4 mg Tab 12 mg = 3 tab(s), Oral, Once a day (at bedtime), # 30 tab(s), Refills(s) 0, Pharmacy: [facility], 158, cm, 09/30/21 14:00:00 EDT, Height/Length Dosing, 112.8, kg, 09/30/21 14:00:00 EDT, Weight Dosing Start Date: 09/30/21 Status: OrderedStart: 38-36-4314wiyo 3 tablets by mouth once daily at bedtimeZanaflex 4 mg Tab 12 mg = 3 tab(s), Oral, Once a day (at bedtime), # 30 tab(s), Refills(s) 0, Pharmacy: [facility], 157.5, cm, 07/29/21 14:55:00 EST, Height/Length Dosing, 110.1, kg, 07/29/21 14:55:00 EST, Weight Dosing Start Date: 07/31/21 Status: OrderedStart: 05-09-2020 End: 68-21-1910scEOQeremu (ZANAFLEX) 2 MG tabletStart: 01-22-2019 End: 28-21-2292isqw 3 tablets by mouth three times daily as needed for headache Tizanidine 4 mg tablet Discontinued 12 MG PO Three times daily as needed for Headache January 22, 2019 2:40pm January 29, 2019 10:28amStart: 01-22-2019 End: 23-66-1144toqi 12 mg by mouth three times dailyTizanidine Discontinued 12 MG PO Three times daily January 22, 2019 3:40pm January 29, 2019 11:28am Start: 09-07-2018 End: 84-41-0167vjky 6 mg by mouth three times dailyTizanidine Discontinued 6 MG PO Three times daily 60 30 September 09, 2018 12:00am January 22, 2019 3:41pm Start: 09-07-2018 End: 54-00-6315ptgg 6 mg by mouth three times daily as needed for headache Tizanidine 4 mg Tablet Discontinued 6 MG PO Three times daily as needed for Headache 60 30 0 September 08, 2018 11:00pm January 22, 2019 2:41pmStart: 07-23-2018 End: 89-44-2189sypb 2 tablets by mouth at bedtimeTizanidine 4 mg tablet Discontinued 8 MG PO Bedtime July 23, 2018 12:00am September 07, 2018 1:59pm Start: 07-23-2018 End: 16-33-6690ezlm 8 mg by mouth at bedtimeTizanidine Discontinued 8 MG PO Bedtime July 23, 2018 1:00am September 07, 2018 2:59pmStart: 08-22-2012 End: 69-42-7571grym 1 tablet by mouth three times dailyTizanidine (Zanaflex) 4 MG tablet Discontinued 4 MG PO THREE TIMES DAILY August 22, 2012 12:00am [facility] 2014 12:45pm End: 55-91-3552jvvq 1 capsule by mouth three times daily [...] tablet (20 sources)Serotonin Reuptake InhibitorStart: 05-31-2024 End: 66-07-5941agjp 1 tablet by mouth once daily as needed for sleeptraZODone (DESYREL) 100 MG tablet Indications: Insomnia, unspecified type Take 1 (one) tablet (100 mg total) by mouth nightly as needed for sleep . 90 tablet 1 08/02/2024 ActiveStart: 04-26-2024 End: 72-59-831594 mg, Oral, Nightly PRN, sleep, Starting on 04/26/24 at 2343, May repeat times 1 in 30 minutes if still awake.Start: 10-30-2023 End: 78-04-2238tmzp 1 tablet by mouth once daily as neededtraZODone (DESYREL) 50 MG tablet Take 1 (one) tablet (50 mg total) by mouth nightly as needed . 90 t ablet 02/08/2024 ActiveStart: 03-29-2023 End: 66-26-8651qpnx 50 mg by mouth once daily as needed for sleep50 mg, Oral, Nightly PRN, sleep, Starting on 03/29/23 at 1432 To be administered 1 hour after melatonin if still awake. May repeat x 1 dose in 30 minutes if still awake.Start: 06-03-2020 End: 10-88-5313ntld 50 mg by mouth once daily as needed for sleep50 mg, Oral, Nightly PRN, sleep, Starting on Thu02/18/23 at 0028zolpidem tartrate 5 mg oral tablet (5 sources)gamma-Aminobutyric Acid-ergic AgonistStart: 12-08-2021 End: 24-15-7183kepo 1 tablet by mouth once daily as needed for sleepzolpidem (AMBIEN) 5 MG tablet Indications: Other insomnia Take 1 tablet by mouth nightly as needed for Sleep for up to 14 days. 7 tablet 0 12/08/2021 12/22/2021 Active Start: 06-03-2020 End: 87-03-8422btby 5 mg by mouth once daily as needed for sleep5 mg, Oral, Nightly PRN, sleep, Starting 06/03/20 at 1750Start: 08-22-2012 End: 12-48-3112zrdk 1 tablet by mouth at bedtimeZolpidem (Ambien) 10 MG tablet Discontinued 10 MG PO BEDTIME August 22, 2012 12:00am July 06, 2014 12:46pm End: 34-84-7156nzlb 1 tablet by mouth once daily as [...] mg oral tablet (3 sources)Start: 03-29-2023 End: 55-64-5718tedx 1 tablet by mouth every six hours as needed for pain and wfsortcl628 mg, Oral, Every 6 hours PRN, mild pain, fever 100.4 F or greater, headaches, Starting on Thu03/29/23 at 1432Start: 12-08-2021 End: 57-31-7894bksyxbfgygqrl (TYLENOL) tablet 1,000 mgStart: 06-03-2020 End: 86-01-9611bkrv 1 tablet by mouth every four hours as zhrqby754 mg, Oral, Every 4 hours PRN, mild pain, fever 100.4 F or greater, headaches, Starting 06/03/20 at 1750acetaminophen 325 mg / HYDROcodone bitartrate 5 mg oral tablet (4 sources)Opioid AgonistStart: 01-25-2023 End: 84-54-0305xpih 1 tablet by mouth every six hours as needed for pain HYDROcodone-acetaminophen (NORCO) 5-325 mg per tablet Indications: Pain of right lower extremity , Injury of right knee, subsequent encounter Take 1 (one) tablet by mouth every 6 (six) hours as needed for pain . 14 tablet 0 01/25/2023 02/17/2023 DiscontinuedStart: 06-26-2017 End: 09-76-4642gpqt 1 tablet by mouth once, then take 1 tablet by mouth HYDROcodone-acetaminophen (NORCO) 5-325 mg per tablet 1 tablet 1 tablet, Oral, Once, Thu06/26/17 at 2200, For 1 dose Given 06/26/2017 22:14 EST 1 tabletaluminum hydroxide 40 mg/ml / magnesium hydroxide 40 mg/ml / simethicone 4 mg/ml oral suspension (2 sources)Start: 02-18-2023 End: 94-75-7032yyvj 30 mL by mouth every four hours as needed for gastroesophageal reflux wnubbxa56 mL, Oral, Every 4 hours PRN, indigestion, heartburn, Starting on Thu02/18/23 at 0028Start: 06-03-2020 End: 35-93-6989fhrv 30 mL by mouth every four hours as ewgetq63 mL, Oral, Every 4 hours PRN, indigestion, Starting 06/03/20 at 1750amitriptyline hydrochloride 25 mg oral tablet (20 sources)Tricyclic AntidepressantStart: 08-19-2018 End: 02-76-0179csqt 1 tablet by mouth once daily at bedtimeAmitriptyline 25 mg Tablet Discontinued 25 MG PO Daily at bedtime September 06, 2018 11:00pm July 2:10amamoxicillin 500 mg oral capsule (10 sources)Penicillin-class AntibacterialStart: 12-01-2023 End: 53-42-5696fndf 1 capsule by mouth three times dailyamoxicillin (AMOXIL) 500 MG capsule Indications: Upper respiratory tract infection, unspecified type Take 1 (one) capsule (500 mg total) by mouth 3 (three) times a day . 15 capsule 12/01/2023 01/12/2024 Discontinued (Therapy completed)amoxicillin 875 mg / clavulanate 125 mg oral tablet (13 sources)Penicillin-class AntibacterialStart: 07-05-2024 End: 69-85-6005uefq 1 tablet by mouth onceamoxicillin-clavulanate (AUGMENTIN) 875-125 mg per tablet Take 1 (one) tablet by mouth . 5007/15/2024 ExpiredStart: 07-05-2024 End: 64-91-9782daar 1 tablet by mouth in the morning, [...] 20 tablet 07/05/2024 07/15/2024 ActiveStart: 09-19-2023 End: 43-94-8134luql 1 tablet by mouth twice dailyamoxicillin-clavulanate (AUGMENTIN) 875-125 mg per tablet Take 1 (one) tablet by mouth 2 (two) times a day for 7 days . 14 tablet 0 09/19/2023 09/26/2023 ActiveStart: 05-04-2023 End: 24-98-2837skpb 1 tablet by mouth twice dailyamoxicillin-clavulanate (AUGMENTIN) 875-125 mg per tablet Take 1 (one) tablet by mouth 2 (two) times a day for 7 days . 14 tablet 0 05/04/2023 05/11/2023 SuspendedStart: 08-21-2022 End: 95-96-0603utqy 1 tablet by mouth every eight hoursAmoxicillin-Pot Clavulanate 500-125 mg tablet Discontinued 1 TAB PO Q8H 30 10 0 August 20, 2022 11:00pm September 12, 2022 6:00amARIPiprazole 10 mg oral tablet (2 sources)Atypical Antipsychotic End: 52-39-3337mqil 1 tablet by mouth once dailyARIPiprazole (ABILIFY) 10 MG tablet Take 10 mg by mouth daily. 0 06/05/2020 Discontinued (Stop Taking at Discharge)atorvastatin 40 mg oral tablet (20 sources)HMG-CoA Reductase InhibitorStart: 12-03-2024 End: 18-90-4216ujjq 80 mg by mouth once daily80 mg, oral, Daily, First dose on 12/03/24 at 0900, Look-alike/sound-alike medication - verify indication for use.Start: 07-12-5982cazm 1 tablet by mouth once dailyatorvastatin (LIPITOR) 80 MG tablet Take 1 (one) tablet (80 mg total) by mouth daily . 90 tablet 1 0 08/05/2024 ActiveStart: 06-03-2020 End: 91-62-7280urle 20 mg by mouth once daily20 mg, Oral, Nightly, First dose on 06/03/20 at 2330Start: 06-15-2015 End: 11-54-6800uegx 1 tablet by mouth once dailyAtorvastatin 10 MG tablet Discontinued 10 MG PO DAILY June 15, 2015 1:00am August 29, 2024 1:56pm Start: 03-08-2015 End: 87-83-7624hjnr 1 tablet by mouth once daily in the eveningAtorvastatin 40 mg Tablet Active 40 MG PO Every evening 30 August 21, 2022 11:00pm Complies withdrug therapyStart: 03-08-2015 End: 67-50-5272etdg 1 tablet by mouth once dailyAtorvastatin 20 mg tablet Discontinued 20 MG PO Daily July 23, 2018 12:00am August 20, 2022 2:10am bisacodyl 10 mg rectal suppository (2 sources)Stimulant LaxativeStart: 02-18-2023 End: 83-22-6278trqm 10 mg rectal route once daily as needed for ssatprmntesx45 mg, Rectal, Daily PRN, constipation, Starting on Thu02/18/23 at 0028 Try oral medications first for constipation. Try rectal medication if oral meds are ineffective, not tolerated, or not ordered.Start: 06-03-2020 End: 05-08-9541jsls 10 mg rectal route once daily as needed for whjqxuganbqf67 mg, Rectal, Daily PRN, constipation, Starting Thu06/03/20 at 1750 Try oral medications first forconstipation. Try rectal medication if oral meds are ineffective, not tolerated,or not ordered.Budesonide / formoterol (1 source)Corticosteroid, beta2-Adrenergic AgonistStart: 06-03-2020 End: 82-66-8623sjvc 2 puff(s) by inhalation twice daily2 puff, Inhalation, 2 times daily (RT), First dose on Thu06/03/20 at 2000busPIRone hydrochloride 10 mg oral tablet (20 sources)Start: 04-27-2024 End: 04-66-6629ervo 30 mg by mouth twice daily30 mg, Oral, 2 times daily, First dose (after last modification) on Thu04/27/24 at 0900Start: 03-25-2024 End: 56-58-0894Urywt: 01-12-2024 End: 56-02-0462sqec 30 mg by mouth every twelve hours30 mg, Oral, Every 12 hours scheduled, First dose on Thu01/12/24 at 2200Start: 06-03-2020 End: 24-52-9510sshTAOvoi (BUSPAR) tablet 15 mgStart: 05-31-2020 End: 54-70-8413nfzVQIurd (BUSPAR) 30 MG tablet 1 (one) tablet (30 mg total) 2 (two) times a day Starts this when done with 15 mg doses x 1 more week . 0 05/31/2020 02/17/2023 DiscontinuedStart: 05-03-2020 End: 06-86-3764wqsSAYzec (BUSPAR) 15 MG tablet 1 (one) tablet (15 mg total) 2 (two) times a day States takes for 1more week then goes to higher dose . 0 05/03/2020 02/17/2023 Discontinuedcariprazine 6 mg oral capsule (7 sources)Atypical AntipsychoticStart: 05-31-2020 End: 24-57-5358yimk 1 capsule by mouth once dailyVraylar 6 mg cap Take 1 (one) capsule (6 mg total) by mouth daily . 0 05/31/2020 02/17/2023 DiscontinuedStart: 05-03-2020 End: 40-79-5344Hguklqe 4.5 mg cap 4.5 mg daily . 0 05/03/2020 06/04/2020 Discontinued (Dose adjustment)cefadroxil 500 mg oral capsule (2 sources)Cephalosporin AntibacterialStart: 03-30-2024 End: 48-54-7978aaVDPcupl 2000 mg injection (3 sources)Cephalosporin AntibacterialStart: 04-27-2024 End: 43-72-0330dfjt 2000 mg intravenously every eight hours2,000 mg, Intravenous, at 100 mL/hr, Every 8 hours, First dose on Thu04/27/24 at 0600, Indication: Community Acquired CellulitisStart: 06-03-2020 End: 07-59-0419swwb 2000 mg intravenous route every eight hours2,000 mg, Intravenous, at 100 mL/hr, Every 8 hours, First dose on Thu06/03/20 at 2300 Indication: Community Acquired CellulitisStart: 06-03-2020 End: 14-20-1724fjGQMgdbs (ANCEF) IVPB 1 g (premix)cefdinir 300 mg oral capsule (3 sources)Cephalosporin AntibacterialStart: 04-30-2023 End: 63-44-0979goev 1 capsule by mouth twice dailycefdinir (OMNICEF) 300 MG capsule Take 1 (one) capsule (300 mg total) by mouth 2 (two) times a day for 7 days . 14 capsule 0 04/30/2023 05/06/2023 Discontinued (Therapy completed)Start: 11-06-2021 End: 53-05-0954cnus 1 capsule by mouth every twelve hourscefdinir [...] oral capsule (12 sources)Cephalosporin AntibacterialStart: 04-28-2023 End: 35-29-4352bnto 1 capsule by mouth four times dailycephALEXin (KEFLEX) 500 MG capsule Take 1 (one) capsule (500 mg total) by mouth 4 (four) times a day for 10 days . 40 capsule 0 04/28/2023 05/06/2023 Discontinued (Therapy completed) Start: 08-05-2019 End: 13-89-2924hdak 1 capsule by mouth twice dailyCephalexin 500 mg capsule Discontinued 500 MG PO Twice daily 10 5 0 August 04, 2019 11:00pm September 22, 2019 7:10am End: 06-56-9702glag 1 capsule by mouth four times dailycephALEXin (KEFLEX) 500 MG capsule Take 500 mg by mouth 4 (four) times a day . 0 06/05/2020 Discontinued (Stop Taking at Discharge)chlorhexidine gluconate 40 mg/ml medicated liquid soap (9 sources)Start: 09-07-2018 End: 22-50-4308Cvkkiliobzpig Gluconate (Hibiclens) 4 % Liquid Discontinued 1 APPLIC TOPICAL Twice a Week September 06, 2018 11:00pm March 24, 2019 7:29am ciprofloxacin 3 mg/ml / dexamethasone 1 mg/ml otic suspension (2 sources)Corticosteroid, Quinolone AntimicrobialStart: 05-06-2023 End: 16-01-2441hvldgqkzxczpl-dexAMETHasone (CIPRODEX) otic suspension Indications: Non-recurrent acute suppurativeotitis media of left ear without spontaneous rupture of tympanic membrane Administer 4 (four) dropsinto the left ear 2 (two) times a day for 7 days . 7.5 mL 0 05/06/2023 05/13/2023 Suspended cyclobenzaprine hydrochloride 10 mg oral tablet (7 sources)Muscle RelaxantStart: 06-26-2017 End: 56-45-4925bvrn 1 tablet by mouth three times daily as needed for muscle spasmscyclobenzaprine (FLEXERIL) 10 MG tablet Take 1 (one) tablet (10 mg total) by mouth 3 (three) times a day as needed for muscle spasms. 15 tablet 0 06/26/2017 02/17/2023 Discontinueddexamethasone 0.75 mg oral tablet (1 source)CorticosteroidStart: 05-05-2015 End: 97-38-7062lujc 1 tablet by mouth twice dailyDexamethasone 0.75 MG tablet Discontinued 0.75 MG PO TWO TIMES DAILY May 05, 2015 1:00am June 16, 2015 12:19amdextromethorphan hydrobromide 2 mg/ml / guaiFENesin 20 mg/ml oral solution (4 sources)Uncompetitive Y-qfexla-S-aspartate Receptor Antagonist, Sigma-1 AgonistStart: 05-15-2023 End: 79-43-7357mjly 5 mL by mouth every four hoursdextromethorphan-guaiFENesin 10-100 mg/5 mL Liqd Indications: Acute effusion of left ear Take 5 mL by mouth every 4 (four) hours . 118 mL 0 05/15/2023 06/22/2023 Discontinueddiclofenac sodium 0.03 mg/mg topical gel (4 sources)Nonsteroidal Anti-inflammatory DrugStart: 01-31-2023 End: 57-49-6526cdtuueaaue sodium 3 % Gel Apply 1 application. topically 2 (two) times a day for 5 days . 100 g 0 01/31/2023 02/20/2023 Discontinued (Stop Taking at Discharge)take 1 tablet by mouth twice dailydiclofenac (VOLTAREN) 75 MG EC tablet Take 75 mg by mouth 2 times daily 0 Active0.4 ml enoxaparin sodium 100 mg/ml prefilled syringe (7 sources)Low Molecular Weight HeparinStart: 04-27-2024 End: 04-13-9256hlxyqj 40 mg by subcutaneous injection twice daily40 mg, Subcutaneous, 2 times daily, First dose on 12/4/24 at 0900, Administer in abdomen unlessotherwise directed by prescriber. Notify physician if patient refuses., Indication: VTE ProphylaxisStart: 03-30-2024 End: 94-81-4180Ffxmt: 03-28-2024 End: 33-63-3354Gnbaj: 03-25-2024 End: 43-72-3613Saaoa: 02-20-2023 End: 73-68-4186kwftsyiwmo (LOVENOX) syringe 30 mgStart: 02-18-2023 End: 03-40-3452swgyow 40 mg by subcutaneous injection twice daily40 mg, Subcutaneous, 2 times daily, First dose on Thu02/18/23 at 0900 Administer in abdomen unless otherwise directed by prescriber. Notify physician if patient refuses. Indication: VTE ProphylaxisStart: 06-03-2020 End: 90-71-5431mbtbgb 40 mg by subcutaneous injection twice daily40 mg, Subcutaneous, 2 times daily, First dose on Thu06/03/20 at 2000 Administer in abdomen unless otherwise directed by prescriber. Notify physician if patient refuses. Indication: VTE Prophylaxisergocalciferol 1.25 mg oral capsule (20 sources)Provitamin D2 CompoundStart: 70-15-8364arnfqcbbbswjxb 50,000 intl units Cap 50,000 International_Unit = 1 cap(s), Oral, Thursday, # 4 cap(s), Refills(s) 0 Start Date: 09/12/22 Status: OrderedStart: 08-22-2022 End: 88-36-3683vtfm 1 capsule by mouth every weekergocalciferol (Vitamin D2) 1.25 MG (41944 UT) capsule Take 1 capsule by mouth 1 (one) time per week 08/22/2022 ActiveStart: 08-22-2022 End: 33-10-5399jztt 1 capsule by mouth every weekErgocalciferol (Vitamin D2) 1,250 mcg (50,000 unit) capsule Discontinued 1250 MCG PO every week September 11, 2022 11:00pm February 20, 2025 10:57amStart: 04-08-2022 End: 94-67-1496gshrnexhgjcxdp 50,000 intl units Cap 50,000 International_Unit = 1 cap(s), Oral, q7day, X 6 week(s), # 6 cap(s), Refills(s) 0, Pharmacy: [facility], 162, cm, 04/06/22 20:38:00 EST, Height/Length Dosing, 112, kg, 04/06/22 20:38:00 EST, Weight Dosing Start Date: 04/08/22 Stop Date: 05/20/22 Status: Ordered End: 66-96-7360yloh 1 capsule by mouth every weekergocalciferol (Vitamin D2) 1,250 mcg (50,000 unit) capsule Indications: Vitamin D deficiency Take 1.25 mcg by mouth once a week . 0 09/03/2023 Discontinued (Reorder (Suppress CancelRx Message to Pharmacy))flu vacc [id number] 6mos up(PF) (FLUZONE QUAD/FLULAVAL QUAD/FLUARIX QUAD) syringe 0.5 mL (1 source)Start: 06-03-2020 End: 11-93-9918ouhenk 0.5 mL by intramuscular injection every twenty-four hours as neededflu vacc [id number] 6mos up(PF) (FLUZONE QUAD/FLULAVAL QUAD/FLUARIX QUAD) syringe 0.5 mLflu vacc [id number] 6mos up(PF) (FLUZONE QUAD/FLULAVAL QUAD/FLUARIX QUAD) syringe Syrg 0.5 mL (1 source)Start: 03-29-2023 End: 42-59-4509lesvmo 0.5 mL by intramuscular injection every twenty-four hours as neededflu vacc [id number] 6mos up(PF) (FLUZONE QUAD/FLULAVAL QUAD/FLUARIX QUAD) syringe Syrg 0.5 mLFLUoxetine 40 mg oral capsule (4 sources)Serotonin Reuptake InhibitorStart: 08-22-2012 End: 09-89-2948ryou 1 capsule by mouth once dailyFluoxetine 40 MG capsule Discontinued 40 MG PO DAILY April 13, 2015 1:00am April 28, 2015 1:54amfluticasone / salmeterol (20 sources)Corticosteroid, beta2-Adrenergic Agonist End: 03-84-5034opek 1 puff(s) by inhalation twice dailyfluticasone-salmeterol (ADVAIR [...] Inhale 1 puff 2 (two) times aday. Yxugwi38 actuat formoterol fumarate 0.005 mg/actuat / mometasone furoate 0.2 mg/actuat metered dose inhaler (1 source)Corticosteroid, beta2-Adrenergic AgonistStart: 02-18-2023 End: 23-44-3027ogzd 2 puff(s) by inhalation twice daily2 puff, Inhalation, 2 times daily (RT), First dose on Thu02/18/23 at 0900FreeStyle Zeinab 2 [facility] Misc (20 sources)Start: 04-01-2023 End: 68-66-1950NtutWdavn Zeinab 2 [facility] Misc Indications: Type 2 diabetes mellitus with diabetic polyneuropathy, with long-term current use of insulin (HCC) Inject 1 each under the skin 2 (two) times a day . 04/01/2023 12/02/2023 Discontinued (Alternate therapy)Start: 73-43-3749VvjcPshqb Zeinab 2 [facility] Misc Indications: Type 2 diabetes mellitus with diabetic polyneuropathy, with long- term current use of insulin (HCC) Inject 1 each under the skin 2 (two) times a day . 04/01/2023 ActiveStart: 93-85-8967IgzpPnkgb Zeinab 2 [place] Misc Indications: Type 2 diabetes mellitus with diabetic polyneuropathy, with long- term current use of insulin (HCC) Inject 1 each under the skin 2 (two) times a day . 0 04/01/2023 SuspendedStart: 30-29-3057XqimLobhh Zeinab 2 [place] Misc Indications: Type 2 diabetes mellitus with diabetic polyneuropathy, with long- term current use of insulin (HCC) Inject 1 each under the skin 2 (two) times a day . 0 04/01/2023 ActiveFreeStyle Zeinab 2 Sensor Kit (20 sources)Start: 11-12-2023 End: 82-37-8627RileFgmyj Zeinab 2 Sensor Kit Indications: Type 2 diabetes mellitus with diabetic polyneuropathy, with long-term current use of insulin (HCC) 1 kit by Miscellaneous route every 14 (fourteen) days . 2 kit 1 11/12/2023 12/02/2023 Discontinued (Alternate therapy)Start: 24-05-6962YcjxCqfac Zeinab 2 Sensor Kit Indications: Type 2 diabetes mellitus with diabetic polyneuropathy, with long-term current use of insulin (HCC) 1 kit by Miscellaneous route every 14 (fourteen) days . 2 kit 1 11/12/2023 ActiveStart: 09-03-2023 End: 75-94-6906IvglWwzzs Zeinab 2 Sensor Kit Indications: Type 2 diabetes mellitus with diabetic polyneuropathy, with long-term current use of insulin (HCC) 1 kit by Miscellaneous route every 14 (fourteen) days . 2 kit 1 09/03/2023 11/12/2023 Discontinued (Reorder (Suppress CancelRx Message to Pharmacy))Start: 89-53-3323DgtlHletk Zeinab 2 Sensor Kit Indications: Type 2 diabetes mellitus with diabetic polyneuropathy, with long-term current use of insulin (HCC) 1 kit by Miscellaneous route every 14 (fourteen) days . 2 kit 1 09/03/2023 Active Start: 06-22-2023 End: 44-27-5162YurfFccrb Zeinab 2 Sensor Kit Indications: Type 2 diabetes mellitus with diabetic polyneuropathy, with long-term current use of insulin (HCC) 1 kit by Miscellaneous route every 14 (fourteen) days . 2 kit 1 06/22/2023 09/03/2023 Discontinued (Reorder (Suppress CancelRx Message to Pharmacy))Start: 35-13-2822EhszXhzfv Zeinab 2 Sensor Kit Indications: Type 2 diabetes mellitus with diabetic polyneuropathy, with long-term current use of insulin (HCC) 1 kit by Miscellaneous route every 14 (fourteen) days . 2 kit 1 06/22/2023 Active Start: 04-20-2023 End: 25-42-2121YwoqEybaa Zeinab 2 Sensor Kit Indications: Type 2 diabetes mellitus with diabetic polyneuropathy, with long-term current use of insulin (HCC) 1 kit by Miscellaneous route every 14 (fourteen) days . 0 04/20/2023 06/22/2023 Discontinued (Reorder (Suppress CancelRx Message to Pharmacy))Start: 82-52-6668TfbhNwnau Zeinab 2 Sensor Kit Indications: Type 2 diabetes mellitus with diabetic polyneuropathy, with long-term current use of insulin (HCC) 1 kit by Miscellaneous route every 14 (fourteen) days . 0 04/20/2023 SuspendedStart: 64-53-3879WwkhRcewa Zeinab 2 Sensor Kit Indications: Type 2 diabetes mellitus with diabetic polyneuropathy, with long-term current use of insulin (HCC) 1 kit by Miscellaneous route every 14 (fourteen) days . 0 04/20/2023 Activegabapentin 100 mg oral capsule (2 sources)Anti-epileptic AgentStart: 03-31-2023 End: 39-51-1382mkaq 2 capsules by mouth twice dailygabapentin (NEURONTIN) [...] initial treatment, repeat treatment. Start: 12-03-2023 End: 39-94-1681jinwkmki (Gvoke HypoPen 2-Pack) 1 mg/0.2 mL AtIn [...] 9 mg/ml injection (1 source)Start: 12-03-2024 End: 66-57-8010exau 250 mg intravenously every hour as parjzt319 mL/hr, intravenous, Continuous PRN, for blood glucose 250mg/dL or less, Starting on 12/03/24at 0740, For 1 day, Once IV fluid is changed to dextrose-containing formulation, DO NOT change to eoh-ycpyprqw-vkrxkmdbtj IV fluid if blood glucose exceeds 250 mg/dL.12 hr guaiFENesin 600 mg extended release oral tablet (15 sources)Start: 05-06-2023 End: 18-04-4318rfzf 1 tablet by mouth onceguaiFENesin (MUCINEX) 600 mg 12 hr tablet Indications: Non-recurrent acute suppurative otitis mediaof left ear without spontaneous rupture of tympanic membrane Take 1 (one) tablet (600 mg total) by mouth every 12 (twelve) hours . 20 tablet 0 05/06/2023 06/22/2023 DiscontinuedStart: 24-47-1772yzfc 2 tablets by mouth twice dailyMucinex 600 mg Tab-ER 1,200 mg = 2 tab(s), Oral, BID, # 30 tab(s), Refills(s) 0, Pharmacy: [facility], 162, cm, 04/06/22 20:38:00 EST, Height/Length Dosing, 112, kg, 04/06/22 20:38:00 EST,Weight Dosing Start Date: 04/08/22 Status: Lfhndha77 hr guaiFENesin 600 mg / pseudoephedrine hydrochloride 60 mg extended release oral tablet (2 sources)alpha-Adrenergic AgonistStart: 05-04-2023 End: 51-27-2358edri 1 tablet by mouth every twelve hourspseudoephedrine- [...] for use. Observe for bleeding.Start: 04-29-2024 End: 40-94-4779598 Units, Intravenous, Once, On Thu04/29/24 at 1500, For 1 dose, De-access portStart: 04-04-2024 End: 86-47-1163Nsfuf: 01-18-2024 End: 48-65-0393109 Units, Intravenous, Once, On Thu01/18/24 at 1200, For 1 dose Start: 01-18-2024 End: 95-49-7505kkohbg 5000 [IU] by subcutaneous injection every eight hours5,000 Units, Subcutaneous, Every 8 hours scheduled, First dose on Thu01/18/24 at 0900, Notify physician if patient refuses.Start: 03-30-2023 End: 96-91-5810kbbxfuz, porcine (PF) injection 500 UnitsStart: 03-29-2023 End: 45-66-1862kkkssj 5000 [IU] by subcutaneous injection every eight hours5,000 Units, Subcutaneous, Every 8 hours scheduled, First dose on Thu03/29/23 at 2200 Notify physician if patient refuses.1 ml hydrALAZINE hydrochloride 20 mg/ml injection (3 sources)Arteriolar VasodilatorStart: 04-27-2024 End: 04-53-7283ojxx 10 mg intravenously every six hours as zwpway46 mg, Intravenous, Every 6 hours PRN, SBP > 180 or DBP > 100, hold for HR >100, Starting on Thu04/27/24 at 0109Start: 04-01-2024 End: 11-31-9672kqwk 10 mg intravenously every six hours as neededStart: 01-13-2024 End: 34-96-6518yudh 10 mg intravenously every six hours as jxxlai53 mg, Intravenous, Every 6 hours PRN, sbp>180, Starting on Thu01/13/24 at 33057.5 ml HYDROmorphone hydrochloride 1 mg/ml prefilled syringe (1 source)Opioid AgonistStart: 06-04-2020 End: 68-36-6337niwq 0.5 mg intravenous route every three hours as needed HYDROmorphone (DILAUDID) injection 0.5 mgindomethacin 50 mg oral capsule (1 source)Nonsteroidal Anti-inflammatory DrugStart: 05-05-2015 End: 02-83-9964uqhg 1 capsule by mouth three times daily as needed for pain Indomethacin 50 MG capsule Discontinued 50 MG PO THREE TIMES DAILY as needed for Pain 15 Angelito 12th, 2015 4:39pm June 16, 2015 12:19aminhalational spacing device inhaler (20 sources)Start: 03-10-2024 End: 24-94-7144lovnbeuqinhq spacing device inhaler Use as instructed . 1 each 2 03/10/2024 03/10/2025 ExpiredStart: 03-10-2024 End: 18-89-3472nxdeaynokbwp spacing device inhaler Use as instructed . 1 each 2 03/10/2024 03/10/2025Start: 03-10-2024 End: 64-39-5314zrukmeukjlsm spacing device inhaler Use as instructed . 1 each 2 03/10/2024 03/10/2025 SuspendedStart: 03-10-2024 End: 48-29-0089cytcxelihkrg spacing device inhaler Use as instructed . 1 each 2 03/10/2024 03/10/2025 Active3 ml insulin detemir 100 unt/ml pen injector (20 sources)Insulin AnalogStart: 01-29-2019 End: 51-70-9660fnarwe 10 [IU] by subcutaneous injection once dailyInsulin Detemir U-100 (Levemir Flextouch U100 Insulin) 100 unit/mL (3 mL) Insulin Pen Discontinued 10 UNITS SUBCUT Daily 0 0 January 28, 2019 11:00pm August 05, 2019 2:09pmStart: 07-23-2018 End: 81-22-1352lfzxps 70 [IU] by subcutaneous injection twice dailyInsulin Detemir U-100 (Levemir U-100 Insulin) 100 unit/mL Solution Discontinued 70 UNIT SUBCUT Twice daily July 23, 2018 12:00am September 06, 2018 8:11pminject 25 [IU] by subcutaneous injection once dailyinsulin lispro (AdmeLOG,HumaLOG) injection 0-15 Units (1 source)Start: 04-27-2024 End: 51-18-8095zekjnlm lispro (AdmeLOG,HumaLOG) injection 0-15 UnitsInsulin Pump Cart,Auto,Bt,G6/7 (Omnipod 5 G6-G7 Pods (Gen 5)) cartridge (1 source)Start: 08-29-2024 End: 39-61-2271Dvcmjbs Pump Cart,Auto,Bt,G6/7 (Omnipod 5 G6-G7 Pods (Gen 5)) cartridge Discontinued EACH SQ August 29, 2024 12:00am August 29, 2024 1:13lh146 ml insulin, regular, human 1 unt/ml injection (2 sources)InsulinStart: 12-03-2024 End: 56-65-3068tszoxl 400 mg by subcutaneous injection every hour0.2-54 [...] medication. Verify indication for use.Start: 03-24-2024 End: 31-91-6258nzsfazn (OMNIPAQUE) 300 MG/ML injection (1 source)Start: 10-07-2022 End: 58-90-3113vbbsdxu (OMNIPAQUE) 300 MG/ML injectionlevothyroxine sodium 0.075 mg [...] Monitor thyroid function tests weeklyStart: 04-27-2024 End: 49-39-3728qoys 30 mL by mouth once daily75 mcg, [...] may need adjusted to meet caloric needs.Start: 54-45-0281oztd 1 tablet by mouth once dailySynthroid 75 mcg (0.075 mg) Tab 75 mcg = 1 tab(s), Oral, Daily, # 30 tab(s), Refills(s) 0 Start Date: 04/07/22 Status: OrderedStart: 09-30-2021 End: 78-64-5200Unwamxbez 75 mcg Tab 75 mcg = 1 tab(s), Oral, Daily, take on an empty stomach from meds, vitamins, food by 60 minutes, X 90 day(s), # 90 tab(s), Refills(s) 0, Pharmacy: [facility], 158, cm, 09/30/21 14:00:00 EDT, Height/Length Dosing, 112.8, kg, 09/30... Start Date: 09/30/21 Stop Date: 12/29/21 Status: OrderedStart: 06-04-2020 End: 98-12-5512gqrs 75 ug by mouth once daily75 mcg, Oral, Daily, First dose on Thu06/04/20 at 1400 For patients on continuous tube feed: Hold TF from 1 hr before until 1 hr after each dose. TF rate may need adjustment to meet caloric needs.Start: 04-26-2016 End: 20-22-2605wiae 1 tablet by mouth once dailyLevothyroxine 75 mcg tablet Active 75 MCG PO Daily July 23, 2018 12:00am Complies with drug therapy Levothyroxine Sodium (LEVOTHYROXINE PO) Take 75 tablets by mouth daily. Active lidocaine 40 mg/ml topical cream (20 sources)Antiarrhythmic, Amide Local AnestheticStart: 09-22-2023 End: 02-76-7601kybqnqkfv (LMX) 4 % cream Apply topically 3 (three) times a day . 90 g 3 09/22/2023 08/02/2024 Discontinued (Therapy completed)Start: 09-07-2018 End: 85-10-4346Xwanurtsi 5 % Ointment Discontinued 1 APPLIC TOPICAL Twice daily as needed for Pain September 06, 2018 11:00pm March 24, 2019 7:31amStart: 46-62-1826Rntzj: 85-74-4643Zfsugqlyn 5 % as directed Externally bid prn Jul, Activelidocaine 25 mg/ml / prilocaine 25 mg/ml topical cream (15 sources)Antiarrhythmic, Amide Local AnestheticStart: 03-22-2024 End: 23-14-3697kwwfageju-prilocaine (EMLA) cream Indications: Candidiasis Apply topically as needed . 30 g 1 03/22/2024 04/29/2024 Discontinued (Stop Taking at Discharge)Start: 83-90-4771jkyevrmol-prilocaine (EMLA) 2.5-2.5 % cream Apply topically as needed for Pain Apply topically as needed. 0 Activeloperamide hydrochloride 2 mg oral capsule (15 sources)Opioid AgonistStart: 03-22-2024 End: 57-41-3037hsciblfvqb (IMODIUM) 2 mg capsule Indications: Diarrhea, unspecified type Take 1 (one) capsule (2 mg total) by mouth as needed for diarrhea (Max dose 7 pills) . 20 capsule 1 03/22/2024 04/29/2024 Discontinued (Stop Taking at Discharge)Start: 07-06-2014 End: 08-63-4432urmw 1 capsule by mouth four times daily as needed for diarrhea Loperamide 2 MG capsule Discontinued 2 MG PO FOUR TIMES DAILY as needed for Diarrhea July 06, 2014 1:02pm February 22, 2015 7:35pmLORazepam 0.5 mg oral tablet (1 source)Benzodiazepine End: 30-84-5679iklr 1 tablet by mouth every eight hours as needed for anxiety LORazepam (ATIVAN) 0.5 MG tablet Take 0.5 mg by mouth every 8 hours as needed for Anxiety 0 12/08/2021 Discontinued (Therapy completed)lurasidone hydrochloride 20 mg oral tablet (20 sources)Atypical AntipsychoticStart: 11-05-2018 End: 77-33-7133Tcieelbrez (Latuda) 20 mg tablet Discontinued January 21, 2019 11:00pm January 29, 2019 10:28ammagnesium hydroxide 80 mg/ml oral suspension (2 sources)Start: 02-18-2023 End: 95-23-3930koks 2400 mg by mouth once daily as needed for constipation2,400 mg (30 mL), Oral, Daily PRN, constipation, Starting on Thu02/18/23 at 0028 If no bowel movement in 24 hours after Sennosides (SENNA) administration.Start: 06-03-2020 End: 15-28-2067bhmf 2400 mg by mouth once daily as needed for constipation2,400 mg (30 mL), Oral, Daily PRN, constipation, For constipation., Starting 06/03/20 at 741264 ml magnesium sulfate 40 mg/ml injection (1 source)Start: 10-07-2022 End: 52-04-5430txtlnfghq sulfate 2 GM/50ML in 50 mL ivpbmelatonin 5 mg oral tablet (3 sources)Start: 01-12-2024 End: mg, Oral, Nightly PRN, Sleep, Starting on Tu01/12/24 at 1823, If still awake in 1 hour proceed to trazodone (Desyrel)Start: 03-29-2023 End: 89-40-7549spoc 5 mg by mouth once daily as needed for sleep5 mg, Oral, Nightly PRN, Sleep, Starting on 03/29/23 at 1432 If still awake in 1 hour proceed totrazodone (Desyrel)Start: 02-18-2023 End: 18-78-8475waup 5 mg by mouth once daily as needed for sleep5 mg, Oral, Nightly PRN, Sleep, Starting on Thu02/18/23 at 0028 If still awake in 1 hour proceed totrazodone (Desyrel)methylPREDNISolone (2 sources)CorticosteroidStart: 02-06-5745Rjlc-Medrol 40 mg Mar, 40 mg Start: 73-51-3834Usar-Medrol 40 mg Mar, 20 mgmetoclopramide 10 mg oral tablet (10 sources)Dopamine-2 Receptor AntagonistStart: 05-13-2023 End: 29-38-6218ejxf 1 tablet by mouth three times daily before mealtime metoclopramide (REGLAN) 10 MG tablet Take 1 (one) tablet (10 mg total) by mouth 3 (three) times a day before meals for 10 days . 30 tablet 0 05/13/2023 08/03/2023 Discontinued (Therapy completed)metroNIDAZOLE 500 mg oral tablet (1 source)Nitroimidazole AntimicrobialStart: 07-06-2014 End: 58-92-3225vtta 1 tablet by mouth three times dailyMetronidazole (Flagyl) 500 MG tablet Discontinued 500 MG PO THREE TIMES DAILY July 06, 2014 1:00am July 06, 2014 1:01pmmicafungin sodium 100 mg injection (9 sources)Echinocandin AntifungalStart: 01-29-2019 End: 64-58-2228Gdejivjnyl 100 mg recon soln Discontinued 100 MG IV Q24H 10 10 0 January 28, 2019 11:00pm March 24, 2019 7:33am administer over 60 mins midodrine hydrochloride 5 mg oral tablet (1 source)alpha-Adrenergic AgonistStart: 02-19-2023 End: 90-62-1654peugwpvvq (PROAMATINE) tablet 10 mg1 ml morphine sulfate 4 mg/ml cartridge (8 sources)Opioid AgonistStart: 04-26-2024 End: mg, Intravenous, Once, On Thu04/26/24 at 2140, For 1 doseStart: 03-24-2024 End: 09-46-8362Rcvtr: 03-29-2023 End: 74-30-7359hdtdcsui injection 2 mgStart: 02-17-2023 End: 71-75-5394cyisbwtb syringe 4 mgStart: 06-03-2020 End: 55-76-2204kimlfrew syringe 4 mgStart: 06-26-2017 End: 15-05-7439gmgyuqnr concentrated 10 mg/0.5 ml oral syringe 10 mg 10 mg, Oral, Once, Thu06/26/17 at 1920, For 1 dose Given 06/26/2017 19:23 EST 10 mgStart: 06-15-2015 End: 29-95-1751bmal 1 tablet by mouth once dailyMorphine 15 MG tablet extended release Discontinued 15 MG PO DAILY June 15, 2015 1:00am August 29, 2024 1:56pmStart: 03-08-2015 End: 25-78-9859efbl 1 tablet by mouth twice daily, then take 1 tablet by mouth every twelve hoursmorphine (MS CONTIN) 15 MG 12 hr tablet Take 15 mg by mouth 2 (two) times a day 0 03/08/2015 06/26/2017 DiscontinuedMuscle Relaxant (1 source)Start: 06-20-2015 End: 26-44-5253Ddhxnz Relaxant Discontinued DAILY June 20, 2015 1:00am August 29, 2024 1:56pmnaloxone (NARCAN) 4 mg/actuation [place] (13 sources)Start: 04-14-2024 End: 32-69-3042wcbsmnoy (NARCAN) 4 mg/actuation [place] Administer 1 spray into one nostril for known or suspected opioid overdose. If patient worsens or does not respond, may repeat in 2-3 minutes. . 2 each 04/14/2024 08/02/2024 Discontinued (Therapy completed)Start: 97-48-6377hwwgmwrw (NARCAN) 4 mg/actuation [place] Administer 1 spray into one nostril for known or suspected opioid overdose. If patient worsens or does not respond, may repeat in 2-3 minutes. . 2 each 04/14/2024Start: 62-56-6650dslbqslt (NARCAN) 4 mg/actuation [place] Administer 1 spray into one nostril for known or suspected opioid overdose. If patient worsens or does not respond, may repeat in 2-3 minutes. . 2 each 04/14/2024 SuspendedStart: 78-52-4070ettknxec (NARCAN) 4 mg/actuation [place] Administer 1 spray into one nostril for known or suspected opioid overdose. If patient worsens or does not respond, may repeat in 2-3 minutes. . 2 each 04/14/2024 Activenaloxone (NARCAN) injection 0.1 mg (3 sources)Start: 04-27-2024 End: 09-16-2732jylvhwhr (NARCAN) injection 0.1 mgStart: 01-12-2024 End: 10-32-9249izynvguh (NARCAN) injection 0.1 mgStart: 06-03-2020 End: 60-50-7256viknujxf (NARCAN) injection 0.1 mgnaratriptan 2.5 mg oral tablet (9 sources)Serotonin-1b and Serotonin-1d Receptor AgonistStart: 07-23-2018 End: 56-78-8069Opddmknbrwn 2.5 mg Tablet Discontinued As Directed July 23, 2018 12:00am September 07, 2018 1:57pmStart: 07-23-2018 End: 32-22-2507Uqmgnbydyeq Discontinued TABLET As Directed July 23, 2018 1:00am September 07, 2018 2:57pm24 hr nicotine 0.583 mg/hr transdermal system (2 sources)Cholinergic Nicotinic AgonistStart: 04-27-2024 End: 42-69-3428uhokj 1 dose transdermal route once daily1 patch, Transdermal, Administer over 24 Hours, Daily, First dose (after last modification) on Thu06/28/23 at 0900, U/P Listed Hazardous Drug. Waste Must Be Disposed in [employer] Waste ContainerStart: 03-30-2024 End: 38-05-8894bgdlguvonlfjz 0.4 mg sublingual tablet (4 sources)Nitrate VasodilatorStart: [...] DO NOT CRUSH OR CHEW.Start: 02-17-2023 End: 29-29-0324wgizsADSZHECC (NITRO-BID) 2 % ointment 1 inchStart: 06-03-2020 End: .4 mg, Sublingual, Every 5 min PRN, chest pain, Starting 06/03/20 at 1750 For chest pain. May give up to 3 doses. Call physician for chest pain unrelieved by Nitroglycerin, or recurrent chest pain. DO NOT CRUSH OR CHEW.nystatin 100 unt/mg topical powder (20 sources)Polyene AntifungalStart: 03-22-2024 End: 30-42-8732ouoabcsm (MYCOSTATIN) powder Indications: Candidiasis Apply topically 2 (two) times a day . 30 g 1 03/22/2024 08/02/2024 Discontinued (Therapy completed)Start: 03-22-2024 End: 40-89-1848Vkdon: 94-69-5206nlnepkqd (Mycostatin) ointment 10/06/2022 Active Start: 00-27-3088dfgqhyau (Mycostatin) ointment APPLY OINTMENT TOPICALLY TWICE DAILY FOR 10 DAYS 10/06/2022 ActiveStart: 65-22-3799lmvtywtw (Mycostatin) cream 09/26/2022 ActiveStart: 44-99-7898xsaerzdp (Mycostatin) cream APPLY CREAM TOPICALLY TO AFFECTED AREA TWICE DAILY FOR 5 DAYS 09/26/2022 Activenystatin (MYCOSTATIN) 803960 UNIT/GM cream Apply topically 2 times daily Apply topically 2 times daily. 0 Activenystatin (MYCOSTATIN) 518451 UNIT/GM powder Apply topically 4 times daily Apply topically 4 times daily. 0 ActiveOLANZapine 5 mg oral tablet (4 sources)Atypical AntipsychoticStart: 09-16-2023 End: 22-58-9533vutk 0.5 tablet by mouth twice daily as needed for anxiety OLANZapine (ZYPREXA) 5 MG tablet Take 0.5 (one-half) tablet (2.5 mg total) by mouth 2 (two) times aday As needed for anxiety . 30 tablet 0 09/16/2023 10/07/2023 Discontinued (Non-compliance (Suppress CancelRx Message to Pharmacy)) 2 ml ondansetron 2 mg/ml injection (20 sources)Serotonin-3 Receptor AntagonistStart: 12-04-2024 End: 34-01-9581wdod 4 mg intravenously every six hours as needed for nausea and vomiting4 mg, intravenous, Every 6 hours PRN, nausea, vomiting, Starting on 7/13/25 at 1245, Intravenous administration preferred to be given over 2-5 minutes.Start: 04-27-2024 End: 73-92-0802kdxa 4 mg intravenously every six hours as needed for nausea and vomiting4 mg, Intravenous, Every 6 hours PRN, nausea, vomiting, Starting on Thu04/27/24 at 0109Start: 03-25-2024 End: 06-30-9468gnsa 4 mg intravenously every six hours as needed for nausea and vomitingStart: 06-18-2023 End: 72-90-5859znrg 1 tablet by mouth every eight hours as needed for nausea ondansetron (ZOFRAN-ODT) 4 MG disintegrating tablet Dissolve 1 (one) tablet (4 mg total) on top of tongue every 8 (eight) hours as needed for nausea . 20 tablet 05/26/2024 ActiveStart: 04-28-2023 End: 03-36-6782ykxi 1 tablet by mouth every six hours as needed for nausea ondansetron (ZOFRAN) 4 MG tablet Take 1 (one) tablet (4 mg total) by mouth every 6 (six) hours as needed for nausea . 20 tablet 0 04/28/2023 05/06/2023 Discontinued (Therapy completed)Start: 03-29-2023 End: 22-88-2769jqnyelhaunp (ZOFRAN) injection 4 mgStart: 01-25-2023 End: 08-32-4519jkjc 1 tablet by mouth every eight hours as needed for nausea ondansetron (ZOFRAN-ODT) 4 MG disintegrating tablet Dissolve 1 (one) tablet (4 mg total) on top of tongue every 8 (eight) hours as needed for nausea . 20 tablet 0 01/25/2023 02/20/2023 Discontinued (Stop Taking at Discharge)Start: 10-07-2022 End: 41-86-2563yceyaqghxcf (ZOFRAN) 4 MG/2ML injectionStart: 54-53-7843gqtm 1 tablet by mouth every twenty-four hoursZofran 4 MG 1 tablet Orally Once a day for 30 day(s) Mar, ActiveStart: 50-35-4703rcmv 1 tablet by mouth every eight hours as needed for nauseaZofran 4 mg Tab 4 mg = 1 tab(s), Oral, q8hr, PRN Nausea/Vomiting, # 6 tab(s), Refills(s) 0, Pharmacy: [place] [id number] Start Date: 11/23/18 Status: OrderedStart: 07-23-2018 End: 51-40-6141wjqt 1 tablet by mouth four times daily as needed for nausea and vomitingOndansetron 4 mg Tablet,Disintegrating Discontinued 4 MG PO Four times daily as needed for Nausea And Vomiting July 23, 2018 12:00am September 07, 2018 1:58pmStart: 07-06-2014 End: 04-62-5552lztv 2 tablets by mouth every eight hours as needed for nausea Ondansetron Hcl (Zofran) 4 MG tablet Discontinued 8 MG PO Q8H as needed for Nausea / Vomiting July 06, 2014 2:53pm February 22, 2015 7:34pm ondansetron (ZOFRAN-ODT) disintegrating tablet 4 mg (4 sources)Start: 01-12-2024 End: 10-77-8335klow 1 tablet by mouth every six hours as needed for nausea and vomitingondansetron (ZOFRAN-ODT) disintegrating tablet 4 mgStart: 03-29-2023 End: 75-70-3150agae 1 tablet by mouth every six hours as needed for nausea and vomitingondansetron (ZOFRAN-ODT) disintegrating tablet 4 mgStart: 02-18-2023 End: 27-97-4810wcsc 1 tablet by mouth every six hours as needed for nausea and vomitingondansetron (ZOFRAN-ODT) disintegrating tablet 4 mgStart: 06-03-2020 End: 14-25-3915kmmo 1 tablet by mouth every six hours as neededondansetron (ZOFRAN-ODT) disintegrating tablet 4 mg2 ml orphenadrine citrate 30 mg/ml injection (1 source)Muscle RelaxantStart: 06-26-2017 End: 84-39-6811uqks 60 mg by intramuscular injection once, then take 60 mg by intramuscular injectionorphenadrine (NORFLEX) injection 60 mg 60 mg, Intramuscular, Once, 06/26/17 at 1920, For 1 dose Given 06/26/2017 19:23 EST 60 mg Left Ventroglutealoxybutynin chloride 5 mg oral tablet (20 sources)Cholinergic Muscarinic AntagonistStart: 10-20-2017 End: 86-85-0172sfmu 1 tablet by mouth twice dailyOxybutynin Chloride 5 mg Tablet Discontinued 5 MG PO Twice daily September 06, 2018 11:00pm March 24, 2019 7:33amoxyCODONE hydrochloride 5 mg oral tablet (2 sources)Opioid AgonistStart: 02-06-2015 End: 98-23-6691ikoq 1 tablet by mouth every four hours as neededoxyCODONE (ROXICODONE) immediate release tablet 5 mgpiperacillin 4000 mg / tazobactam 500 mg injection (4 sources)Penicillin-class Antibacterial, beta Lactamase InhibitorStart: 04-26-2024 End: 44.5 g, Intravenous, at 200 mL/hr, Once, On Thu04/26/24 at 2110, For 1 dose, VESICANT, Indication: Skin/Soft Tissue InfectionStart: 03-25-2024 End: 29-38-9912fofu 3.375 g intravenously every eight hoursStart: 03-24-2024 End: 44-77-4911Rndes: 01-12-2024 End: 17-16-5936iijf 3.375 g intravenously every eight hours3.375 g, Intravenous, at 12.5 mL/hr, Every 8 hours, First dose on Thu01/12/24 at 2000, VESICANT, Ind ication: Skin/Soft Tissue Infectionmicroencapsulated potassium chloride 20 meq extended release oral tablet (19 sources)Start: 03-31-2024 End: 67-51-6232Wjbfi: 10-03-2021 End: 69-20-8182sgjw 1 tablet by mouth twice daily at mealtimepotassium chloride 20 mEq ER Tab 20 mEq = 1 tab(s), Oral, BID, with a full glass of water with food, X 14 day(s), # 28 tab(s), Refills(s) 0, Pharmacy: [facility], 158, cm, 09/30/21 14:00:00 EDT, Height/Length Dosing, 112.8, kg, 09/30/21 14:00:00 EDT, Weight Dosing Start Date: 10/03/21 Stop Date: 10/17/21 Status: OrderedStart: 08-05-2019 End: 89-88-3839mypmsqimm chloride 20 mEq TbER 20 mEq . 0 08/05/2019 06/05/2020 Discontinued (Stop Taking at Discharge)Start: 08-05-2019 End: 42-14-6953dnbn 1 tablet by mouth once dailypotassium chloride 20 mEq tablet Discontinued 20 MEQ PO Daily August 04, 2019 11:00pm August 05, 2019 2:09pm take 1 capsule by mouth every twenty-four hoursPotassium Chloride 10 MEQ 1 capsule with food Orally Once a day Ijaiya7579 ml potassium chloride 0.02 meq/ml / sodium chloride 9 mg/ml injection (1 source)Start: 12-03-2024 End: 46-92-3586ajat 100 mL intravenously every dilm189 mL/hr, intravenous, Continuous, Starting on 12/03/24 at 0745, For 1 day, For blood glucose gr eater than 250mg/dL. Once IV fluid is changed to dextrose-containing formulation, DO NOT change to zpo-petkkwfg-xvyzggzqxh IV fluid if blood glucose exceeds 250 mg/dL.QUEtiapine 200 mg oral tablet (20 sources)Atypical AntipsychoticStart: 12-03-2024 End: 22-97-5444qbcd 800 mg by mouth once qswqu667 mg, oral, Nightly, First dose on 12/03/24 at 2200, Look-alike/sound-alike medication - verify indication for use.Start: 21-07-8561Qjvbklfoeo 400 mg tablet Active MG TABLET August 29, 2024 12:00amStart: 04-27-2024 End: 20-86-7858piyf 800 mg by mouth once ajdfz856 mg, Oral, Nightly, First dose (after last modification) on Thu04/27/24 at 0200, May cause QT interval prolongation.Start: 03-25-2024 End: 33-89-2723Dqihm: 01-12-2024 End: 16-53-3516dtbi 800 mg by mouth once mg, Oral, Nightly, First dose on Thu01/12/24 at 2300, May cause QT interval prolongation.Start: 05-06-2023 End: 04-91-8441zbfv 1 tablet by mouth once dailyQUEtiapine (SEROQUEL) 200 MG tablet Indications: Bipolar 1 disorder (HCC) , Insomnia, unspecified type Take 1 (one) tablet (200 mg total) by mouth nightly . 30 tablet 2 05/06/2023 08/03/2023 Discontinued (Dose adjustment)Start: 03-29-2023 End: 14-96-3417kdje 400 mg by mouth once cjtwi240 mg, Oral, Nightly, First dose on Thu03/29/23 at 2100 May cause QT interval prolongation.Start: 02-20-2023 End: 30-11-0819noii 1 tablet by mouth once dailyQUEtiapine (SEROQUEL) 400 MG tablet Indications: Bipolar 1 disorder (HCC) , Insomnia, unspecified type Take 1 (one) tablet (400 mg total) by mouth nightly . 30 tablet 2 05/06/2023 08/03/2023 Discontinued (Reorder (Suppress CancelRx Message to Pharmacy))Start: 02-19-2023 End: 18-52-5096DMFhariyyy (SEROQUEL) tablet 200 mgStart: 02-18-2023 End: 44-96-5079fajc 800 mg by mouth once mg, Oral, Nightly, First dose on Thu02/18/23 at 0400 May cause QT interval prolongation.Start: 10-06-2022 End: 77-99-6030QWNlvmrklq (SEROQUEL) tabletStart: 02-21-2022 End: 19-08-1547kbeg 2 tablets by mouth once daily in the eveningSEROquel XR 400 mg Tab-ER 800 mg = 2 tab(s), Oral, qPM, X 4 day(s), # 8 tab(s), Refills(s) 0, Pharmacy: [facility], 157, cm, 02/21/22 14:56:00 EDT, Height/Length Dosing, 115, kg, 02/21/22 14:56:00 EDT, Weight Dosing Start Date: 02/21/22 Stop Date: 02/25/22 Status: OrderedStart: 06-04-2020 End: 03-28-1241vtzt 800 mg by mouth once hpaor185 mg, Oral, Nightly, First dose on Thu06/04/20 at 2100 May cause QT interval prolongation.Start: 08-04-2019 End: 94-89-0574wunz 2 tablets by mouth at bedtimeQuetiapine 400 mg tablet Active 800 MG PO Bedtime August 03, 2019 11:00pm Complies with drug therapyStart: 94-76-1253faep 800 mg by mouth at bedtimeQuetiapine Active 800 MG PO Bedtime August 04, 2019 12:00amStart: 01-29-2019 End: 70-01-7367dgyi 2 tablets by mouth once daily at bedtimeQuetiapine 25 mg Tablet Discontinued 50 MG PO Daily at bedtime 0 0 January 28, 2019 11:00pm August 04, 2019 7:20pmStart: 01-29-2019 End: 14-17-7961cdhp 50 mg by mouth once daily at bedtimeQuetiapine Discontinued 50 MG PO Daily at bedtime 0 January 29, 2019 12:00am August 04, 2019 8:20pm Start: 07-23-2018 End: 13-95-6453xjul 600 mg by mouth at bedtimeQuetiapine Discontinued 600 MG PO Bedtime July 23, 2018 1:00am January 29, 2019 11:28amStart: 10-20-2017 End: 12-28-6236kyvh 2 tablets by mouth at bedtimeQuetiapine 300 mg tablet Discontinued 600 MG PO Bedtime July 23, 2018 12:00am January 29, 2019 10:28amStart: 56-14-4406NEIacgqyia 50 MG Tab Indications: Atrial fibrillation, unspecified [...] injection 0.4 mg (1 source)Start: 02-18-2023 End: 95-71-6902bdtcsjnxhtv (LEXISCAN) injection 0.4 mgrimegepant 75 mg disintegrating oral tablet (3 sources)Start: 02-11-2024 End: 27-99-0820xvkes 1 tablet topically once daily as neededRimegepant (NURTEC) 75 mg ODT Indications: Chronic nonintractable headache, unspecified headache typ e Dissolve 1 (one) tablet (75 mg total) on top of tongue daily as needed (migraine) . 4 tablet 02/11/2024 03/22/2024 Discontinued (Therapy completed)72 hr scopolamine 0.0139 mg/hr transdermal system (1 source)AnticholinergicStart: 03-25-2024 End: 48-13-1372oviigcggju, fci 8.6 mg oral tablet (4 sources)Start: 04-27-2024 End: 46-57-1113guny 1 tablet by mouth once daily17.2 mg (2 tablet), Oral, Nightly, First dose on Thu04/27/24 at 0200, For 5 daysStart: 01-12-2024 End: 23-37-8866Yruix: 03-29-2023 End: 67-92-1524vdkz 1 tablet by mouth twice daily as needed for constipation8.6 mg (1 tablet), Oral, 2 times daily PRN, constipation, Starting on Thu03/29/23 at 1432Start: 02-18-2023 End: 71-97-8541shsv 1 tablet by mouth twice daily as needed for constipation8.6 mg (1 tablet), Oral, 2 times daily PRN, constipation, Starting on Thu02/18/23 at 0028Sodium Chloride (20 sources)Start: 12-05-2024 End: 66-19-8574ympanm chloride 0.9 % flush 20 mLStart: 12-03-2024 End: 20-23-6283zhiw 100 mL intravenously every rkqj216 mL/hr, intravenous, Continuous, Starting on 12/03/24 at [...] Starting on 12/03/24 at 0216Start: 12-03-2024 End: 04-00-2171dusx 25 mL intravenously every hour as qealgu61 mL, intravenous, at 100 mL/hr, Administer over 15 Minutes, As needed, line care, line care after IVPB administration, Starting on 12/03/24 at 0216Start: 04-29-2024 End: 27-24-8903Wdzzncww on Thu04/29/24 at 1345, For 1 dose, YVETTE CANCHOLA: kamlesh overrideStart: 04-26-2024 End: 75-16-8684jdnv 100 mL intravenously every mtii947 mL/hr, Intravenous, Continuous, Starting on Thu04/26/24 at 2350, For 10 hoursStart: 03-26-2024 End: 46-22-4072Jornz: 03-24-2024 End: 75-60-5931Xpcby: 01-12-2024 End: 18-14-3783dkwxid chloride (PF) (NS) flush 5 mLStart: 01-12-2024 End: 92-85-5819470 mL, Intravenous, at 1,875 mL/hr, Once, On 01/16/24 at 0630, For 1 doseStart: 03-29-2023 End: 23-32-4303zwfcxc chloride (PF) (NS) flush 5 mLStart: 02-19-2023 End: 15-74-2092lpgows chloride 0.9% (NS)Start: 02-19-2023 End: 63-18-5588tyovnt chloride 0.9% (NS) bolus 500 mLStart: 02-18-2023 End: 49-82-8530xffgdk chloride (PF) (NS) flush 5 mLStart: 06-03-2020 End: 78-94-7497oisz 100 mL intravenous route every dkjr433 mL/hr, Intravenous, Continuous, Starting 06/03/20 at 1845Start: 06-03-2020 End: 42-02-5777ntfzwj chloride (PF) (NS) flush 5 mLStart: 09-22-2019 End: 86-95-7170Hyrelv Chloride (Saline Wound Wash) 0.9 % aerosol,spray Discontinued 1 APPLIC TOPICAL Twice daily 210 September 21, 2019 11:00pm September 03, 2021 1:45pmsubcutaneous insulin pump Misc (1 source)Start: 01-12-2024 End: 58-05-7006Agjtcavalphws, Continuous, Starting on Thu01/12/24 at 2215, Select [...] Reductase Inhibitor Antibacterial, Sulfonamide AntimicrobialStart: 07-05-2024 End: 32-51-1319hdkj 1 tablet by mouth twice dailysulfamethoxazole-trimethoprim (BACTRIM DS,SEPTRA DS) 800-160 mg per tablet Take 1 (one) tablet by mouth 2 (two) times a day . 07/05/2024 07/15/2024 ExpiredStart: 10-24-2022 End: 81-10-6407zvmitujhkqfrkdpg-trimethoprim (Bactrim DS) 800-160 MG per tablet 10/24/2022 ActiveStart: 09-15-2022 End: 82-15-1175uobo 1 tablet by mouth every twelve hoursBactrim D.S. 800 mg-160 mg Tab 1 tab(s), Oral, q12hr, 11 tab(s), Refill(s) 0, START TONIGHT; drink p lenty of fluids, [facility], 157, cm, 09/12/22 13:52:00 EDT, Height/Length Dosing, 113, kg, 09/12/22 13:52:00 EDT, Weight Dosing Start Date: 09/15/22 Stop Date: 09/20/22 Status: OrderedStart: 05-15-2022 End: 95-31-7562gmga 1 tablet by mouth twice dailyBactrim D.S. 800 mg-160 mg Tab 1 tab(s), Oral, BID for 7 day(s), 14 tab(s), Refill(s) 0, [facility], 157, cm, 05/15/22 16:23:00 EST, Height/Length Dosing, 113, kg, 05/15/22 16:23:00 EST, Weight Dosing Start Date: 05/15/22 Stop Date: 05/22/22 Status: Orderedtamsulosin hydrochloride 0.4 mg oral capsule (1 source)alpha-Adrenergic BlockerStart: 04-09-2022 End: 31-34-8419Rkzhnx 0.4 mg Cap 0.4 mg = 1 cap(s), Cap, Oral, Start date 04/09/22 9:00:00 EST, 04/08/22 5:48:00 EST Start Date: 04/09/22 Stop Date: 04/09/22 Status: Completedtechnetium (Tc-99m) sestamibi (CARDIOLITE) injection 30.4 millicurie (1 source)Start: 02-18-2023 End: 74-85-5297myujvfxnbj (Tc-99m) sestamibi (CARDIOLITE) injection 30.4 millicurietechnetium (Tc-99m) sestamibi (CARDIOLITE) injection 8-25 millicurie (1 source)Start: 02-18-2023 End: 99-08-4874vinvuniicj (Tc-99m) sestamibi (CARDIOLITE) injection 8-25 millicurietraMADol hydrochloride 50 mg oral tablet (4 sources)Opioid AgonistStart: 11-28-2022 End: 98-47-4832fddk 1 tablet by mouth every eight hours as needed for pain Tramadol 50 mg tablet Discontinued 50 MG PO Q8H as needed for pain 7 3 November 28, 2022 12:00am 2024 1:56pmStart: 27-38-7382aytr 1 tablet by mouth once daily as needed for paintraMADOL 50 mg Tab 50 mg = 1 tab(s), Oral, Daily, PRN for pain, # 30 tab(s), Refills(s) 0 Start Date: 09/12/22 Status: Orderedurea 400 mg/ml topical cream (7 sources)Start: 10-23-2023 End: 26-19-6657ygvn (CARMOL) 40 % Crea Apply 1 application. topically 2 (two) times a day . 85 g 3 10/23/2023 11/22/2023 ExpiredUrea (CARMOL 40 EX) Apply topically. Activedivalproex sodium 500 mg delayed release oral tablet (20 sources)Mood Stabilizer, Anti-epileptic AgentStart: 01-12-2024 End: 18-42-1134aufy 500 mg by mouth every twelve mg, Oral, Every 12 hours scheduled, First dose on Thu01/12/24 at 2200, CATEGORY D HAZARDOUS DRUG use safe handling precautions. Use reference link to view PPE guidelines. DO NOT CRUSH OR CHEW.Start: 06-03-2020 End: 22-33-9237esgkohziko (DEPAKOTE) delayed release (DR) tablet 500 mgStart: 85-50-6357fkph 1 tablet by mouth twice dailydivalproex sodium 500 mg ER Tab 500 mg = 1 tab(s), Oral, BID, Refills(s) 0, Seizure Start Date: 11/05/18 Status: OrderedStart: 09-09-2018 End: 36-45-4805btfh 1 tablet by mouth twice dailyDivalproex 500 mg Tablet,Delayed Release (Dr/Ec) Discontinued 500 MG PO Twice daily 60 30 0 September 08, 2018 11:00pm August 20, 2022 2:10am Intractable seizure disorder Epilepsy, unspecified, intractable, without status epilepticusStart: 09-07-2018 End: 95-40-7931frhf 1 tablet by mouth twice dailyDivalproex 250 mg Tablet,Delayed Release (Dr/Ec) Discontinued 250 MG PO Twice daily September 06, 2018 11:00pm September 09, 2018 12:38zm547 ml vancomycin 5 mg/ml injection (10 sources)Glycopeptide AntibacterialStart: 03-25-2024 End: 35-84-9047jzxi 1250 mg intravenously every twenty-four hoursStart: 01-29-2019 End: 56-03-4907jzcd 1 g intravenously every eight hoursVancomycin 1.5 gram recon soln Discontinued 1 GM IV Q8H 10 10 January 28, 2019 11:00pm 2018 7:31amStart: 01-29-2019 End: 00-21-1444lyzu 1 g intravenously every eight hoursVancomycin Discontinued 1 GM IV Q8H 10 10 January 29, 2019 12:00am March 24, 2019 8:31am24 hr venlafaxine 150 mg extended release oral capsule (20 sources)Serotonin and Norepinephrine Reuptake InhibitorStart: 89-14-8149oghu 1 capsule by mouth once dailyvenlafaxine 150 mg Cap-ER 150 mg = 1 cap(s), Oral, Daily, Depression Start Date: 10/20/17 Status: OrderedStart: 10-20-2017 End: 09-06-0457wipv 1 capsule by mouth once dailyVenlafaxine 150 mg capsule,extended release 24hr Discontinued 150 MG PO Daily July 23, 2018 12:00am March 24, 2019 7:33amvitamin b12 1 mg oral tablet (20 sources)Vitamin Y97Hevrr: 09-03-2023 End: 32-15-6433psom 1 tablet by mouth once dailycyanocobalamin (B-12) 1000 MCG tablet Indications: [facility] Take 1 (one) tablet (1,000 mcg total) by mouth daily Reasons: [facility]. 90 tablet 1 02/11/2024 03/22/2024 Discontinued (Therapy completed)take 1 tablet by mouth once dailycyanocobalamin 500 MCG tablet Take 1 tablet by mouth daily. Activezinc oxide 50 mg/ml topical cream (1 source)Start: 08-02-2024 End: 71-67-2546igsb oxide 5 % Crea Apply 1 Application topically daily . 177.4 mL 08/02/2024 08/02/2024 Discontinued (Therapy completed)zonisamide 100 mg oral capsule (10 sources)Anti-epileptic AgentStart: 07-23-2018 End: 39-17-5881flwc 200 mg by mouth at bedtimeZonisamide 200 MG Oral Bedtime July 23, 2018 DiscontinuedStart: 07-23-2018 End: 47-07-5213udhn 1 capsule by mouth at bedtimeZonisamide (Zonegran) 100 mg Capsule Discontinued 200 MG PO Bedtime July 23, 2018 12:00am September 07, 2018 2:00pmtake 2 capsules by mouth once dailyzonisamide (ZONEGRAN) 100 MG capsule Take 200 mg by mouth daily 0 Active (6 sources)Start: 04-01-2024 End: 50-14-4126Sbjmy: 03-27-2024 End: 04-04-2024[Order 1 Start] Name: insulin [...] intended for KVO.[Order 4 End]Start: 03-24-2024 End: 59-37-6731Rbmxp: 03-24-2024 End: 04-04-2024[Order 1 Start] Name: Insert [...] kidney; Translations: [SOLO (acute kidney injury)] Onset: 323185-99-2674Zclut bronchitis (1 source)Acute bronchitis; Translations: [Acute bronchitis, unspecified]Onset: 10-94-3268TkascdjpJpkzv cerebrovascular disease (1 source)Lacunar infarction; Translations: [Other cerebral infarction due to occlusion or stenosis of small artery]61-00-1980OfxhmwbJzoot myocardial infarction (2 sources)Non-ST elevation (NSTEMI) myocardial infarction; Translations: [Non- ST elevation (NSTEMI) myocardial infarction]Onset: 28-81-4473DbfbmjvQlyftdwgcc disorders (1 source)Family tension; Translations: [Reaction to severe stress, unspecified] ChronicAdministrative/social admission (4 sources)Encounter for issue of repeat prescription; Translations: [Drug seeking behavior ]Onset: 791051-30-6153XownmeyrTktkbax disorders (20 sources)Anxiety; Translations: [Psychogenic syncope]Onset: 02-16-2008 10-62-4555TlapzlkMtdqpwufz and vision defects (20 sources)Visual impairment; Translations: [Unqualified visual loss, left eye, normal vision right eye]Onset: 897322-27-0644OwmsnegBgiiowjdq and vision defects (7 sources)Eye / vision finding; Translations: [Unspecified visual disturbance] Onset: 605212-24-0434JntrsboxNwcux (1 source)BurnEpisodicCalculus of urinary tract (20 sources)Kidney azgis68-23-4378DzmkrneqEnkccch dysrhythmias (20 sources)Sustained ventricular tachycardia; Translations: [Sinus node dysfunction]Onset: 180850-27-4038ZlulcjxKrnuktcy (1 source)Artificial lens present; Translations: [Presence of intraocular lens] 92-46-6315YheebecIfiufwb kidney disease (20 sources)Chronic kidney disease; Translations: [Chronic kidney disease, unspecified]Onset: 354260-46-0893YiwzypvAkwopmh obstructive pulmonary disease and bronchiectasis (20 sources)Acute exacerbation of chronic obstructive airways disease; Translations: [Chronic obstructive pulmonary disease with (acute) exacerbation] Onset: 77-69-8212WrrdskeZjdqluz ulcer of skin (10 sources)Non-pressure chronic ulcer of other part of left foot with unspecified severity; Translations: [Non-pressure chronic ulcer of other part of right foot with fat layer exposed]Onset: 879242-14-9639OvmlrhhNdsmbrnpgh disorders (20 sources)Cardiac pacemaker in situ; Translations: [Presence of cardiac pacemaker]Onset: 588317-73-6137UzuysdyHieljtzgsp heart failure; nonhypertensive (17 sources)Heart failure; Translations: [Heart failure, unspecified]Onset: 508292-43-2470SyxgvrgTsqwxqcv atherosclerosis and other heart disease (2 sources)Coronary atherosclerosis; Translations: [Atherosclerotic heart disease of viejas coronary artery without angina pectoris]Onset: 09-02-2021 ChronicDiabetes mellitus with complications (20 sources)Type II diabetes mellitus uncontrolled; Translations: [Neuropathy due to diabetes mellitus]Onset: 11-30-2014 Resolved: 071482-45-0108ZuajkmjDprvpffs mellitus without complication (20 sources)Type 2 diabetes mellitus; Translations: [Diabetes mellitus]Onset: 173269-56-3346XahlkqdOkykrnbkk of lipid metabolism (20 sources)Dyslipidemia; Translations: [Hyperlipidemia]Onset: 03-31-2017 34-46-4191VymgqljT Codes: Fall (4 sources)Unspecified fall, initial encounter; Translations: [Fall]Onset: 175450-90-4015TroghyhnMvlslfiw; convulsions (9 sources)Seizure disorder; Translations: [Epilepsy, unspecified, not intractable, without status epilepticus]Onset: 299374-13-9889Fycnbwv Epilepsy; convulsions (20 sources)Seizure; Translations: [1 to 12 seizures a year]Onset: 06-13-2008 Resolved: 089082-57-5043DaweipqsIlgiwkp on above:last 2 weeks just staring spells has been 6last 2 weeks just staring spells has been 6Esophageal disorders (20 sources)Gastroesophageal reflux disease; Translations: [Gastroesophageal reflux disease without esophagitis]Onset: 082865-51-0405KkzpuofCwodvcleq hypertension (20 sources)Hypertensive disorder; Translations: [Essential hypertension]Onset: 317223-04-5264UsupmttJmxbudbvr and duodenitis (2 sources)Gastritis; Translations: [Gastritis, unspecified, without bleeding] EpisodicGastroduodenal ulcer (except hemorrhage) (20 sources)Gastric -38-1403JfteqqxRicobpxqktdry symptoms and ill-defined conditions (20 sources)Urinary incontinence; Translations: [Unspecified urinary incontinence]Onset: 343783-45-1613MfusowbSmphunexzhveg symptoms and ill- defined conditions (20 sources)Dysuria; Translations: [Personal history of urinary (tract) infections]Onset: 133831-47-5693YapdzfrrDsynxprn (1 source)Ocular hypertension, left eye; Translations: [Ocular hypertension] 60-49-7444EsfzovyTqvhsdur; including migraine (1 source)Migraine, unspecified, not intractable, without status migrainosus; Translations: [MIGRAINE UNS NOTINTRACT W/O SM]Onset: 36-41-2196ZyeabqjAxhsffby; including migraine (6 sources)Headache; including migraine; Translations: [HEADACHE UNSPECIFIED] Onset: 41-01-8079Nnsgdkbkdgwl with complications and secondary hypertension (20 sources)Hypertensive heart failure; Translations: [Hypertensive heart disease with heart failure]Onset: 627700-49-1531KzzpykyKleprswbk arthritis and osteomyelitis (except that caused by tuberculosis or sexually transmitted di sease) (20 sources)Osteomyelitis of forefoot; Translations: [Osteomyelitis, unspecified]Onset: 854489-09-3945PhwgjtlLbsb effects of cerebrovascular disease (4 sources)Neurogenic bladder as late effect of cerebrovascular accident; Translations: [Other sequelae of cerebral infarction]55-40-9203NpxeruuDvipjtb and fatigue (20 sources)Left hemiparesis; Translations: [Weakness]Onset: 03-04-2022 45-74-1189NbwauvyhLmubbcyrhp disorders (1 source)Hormone replacement therapy; Translations: [HORMONE REPLACEMENT THERAPY]Onset: 52-10-2914ZnihrjfqWmmhaducyxrcy mental health disorders (5 sources)Confusional state; 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]Onset: 79-82-2460MpwsbvzEhxc disorders (20 sources)Bipolar I disorder; Translations: [Bipolar disorder]Onset: 739817-56-5817EvqnropPhdkytecz of unspecified nature or uncertain behavior (20 sources)Neoplasm of -49-1897VaebvtxaHrlqoggmszssq gastroenteritis (1 source)Gastroenteritis; Translations: [Noninfective gastroenteritis and colitis, unspecified]EpisodicNutritional deficiencies (20 sources)Vitamin D deficiency; Translations: [Vitamin D deficiency, unspecified]Onset: 788564-82-7089FmkiemvSbbz wounds of extremities (3 sources)Laceration of finger without foreign body; Translations: [Laceration without foreign body of left index finger without damage to nail, initial encounter]Onset: 77-67-0474PcnyufpuNfci wounds of head; neck; and trunk (2 sources)Unspecified open wound of abdominal wall, unspecified quadrant without penetration into peritoneal cavity, initial encounter; Translations: [Wound dehiscence]Onset: 717135-73-9834WmorlnowPebfgridmfojjz (20 sources)Arthritis; Translations: [Osteoarthritis]Onset: ChronicOther aftercare (4 sources)Long-term current use of insulin; Translations: [FDC (current) use of insulin]96-01-5857WjfazlwzAcdmr aftercare (1 source)intermediate card tender (current) use of aspirin; Translations: [GROUP HOME CURRENT USE OF ASPIRIN]Onset: 55-02-1506QsjkokfmRwwfd aftercare (1 source)intermediate card tender (current) use of oral hypoglycemic drugs; Translations: [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 USE ORAL HYPOGLYCEMIC DX]Onset: 63-94-8458LptpwtrfZafjf circulatory disease (2 sources)Device in situ; Translations: [Presence of other vascular implants and grafts]ChronicOther circulatory disease (4 sources)Hypothenar hammer syndrome; Translations: [Other specified peripheral vascular diseases]Onset: 969532-86-1405UxscrkgEfgkr circulatory disease (1 source)Other specified peripheral vascular diseases; Translations: [Other specified peripheral vascular diseases]Onset: 96-05-6119OwprbtiUjwol circulatory disease (1 source)History of cardiac arrest; Translations: [Personal history of sudden cardiac arrest]Onset: 47-48-1528JkbpmqsgGnabb circulatory disease (1 source)History of cerebrovascular disease; Translations: [Personal history of other diseases of the circulatory system]Onset: 26-25-5281AizqwoivGcvsh circulatory disease (1 source)History of transient ischemic attack; Translations: [Personal history of transient ischemic attack (TIA), and cerebral infarction without residual deficits]Onset: 77-79-5817XdoftcjkMcboj connective tissue disease (20 sources)Plantar niordsfjs76-80-3000LqhxkuxdWonth connective tissue disease (1 source)Plantar fascial fibromatosis; Translations: [Plantar fascial fibromatosis]Onset: 24-74-0817TyatxjklHzjve connective tissue disease (2 sources)Recurrent falls ; Translations: [Repeated falls]EpisodicOther connective tissue disease (7 sources)Pain in left toe(s); Translations: [Pain in limb]Onset: 09-07-2022 84-51-9959OdnswkmjNpncx connective tissue disease (1 source)Musculoskeletal symptom; Translations: [Other symptoms and signs involving the musculoskeletal system]Onset: 33-88-9724NxycjzzcXkiyp connective tissue disease (1 source)Muscle weakness of limb; Translations: [Other symptoms and signs involving the musculoskeletal system]EpisodicOther connective tissue disease (1 source)Fibromyalgia; Translations: [FIBROMYALGIA]Onset: 94-03-0427Hrsghumg Other connective tissue disease (3 sources)Neuralgia and neuritis, unspecified; Translations: [NEURALGIA AND NEURITIS UNSPECIFIED]Onset: 61-68-8072BzqksvmcDpokc connective tissue disease (20 sources)Disorder of lower extremity; Translations: [Other muscle spasm] Onset: 128545-43-2857MrlmeadcHavlt connective tissue disease (1 source)Pain of left lower leg; Translations: [Pain in left lower leg] 32-38-8076GzwhcikuJmyrw connective tissue disease (1 source)Pain of toe of left foot; Translations: [Pain in left toe(s)] 50-25-4481IhlidikdOkzuw connective tissue disease (1 source)Pain of left hand; Translations: [Pain in left hand]71-49-0957Ynhfzxhm Other connective tissue disease (2 sources)Pain in left hand; Translations: [Pain in left hand]Onset: 02-23-2025 EpisodicOther ear and sense organ disorders (1 source)Hearing loss in left ear; Translations: [Unspecified hearing loss, left ear]69-08-4348BraorzcJmidw eye disorders (1 source)StaringChronicOther eye disorders (1 source)Disorder of lacrimal gland; Translations: [Dry eye syndrome of bilateral lacrimal glands]13-93-2953BhfrzzlwHknvp gastrointestinal disorders (20 sources)Diarrhea; Translations: [Diarrhea, unspecified]Onset: 05-25-2015 22-22-5849KqckdjhoOvncf gastrointestinal disorders (2 sources)Dysphagia; Translations: [Dysphagia, unspecified]EpisodicOther gastrointestinal disorders (4 sources)Constipation, unspecified; Translations: [CONSTIPATION UNSPECIFIED] Onset: 61-60-7429NkapmyspUyilx hereditary and degenerative nervous system conditions (20 sources)Restless legs; Translations: [Restless legs syndrome]Onset: 398687-27-9676AmalgwsJfdou hereditary and degenerative nervous system conditions (1 source)Restless legs syndrome; Translations: [RESTLESS LEGS SYNDROME]Onset: 60-17-5403OsubhxbVzlrn infections (4 sources)Personal history of Methicillin resistant Staphylococcus aureus infection; Translations: [History of MRSA infection]Onset: EpisodicOther injuries and conditions due to external causes (1 source)Systemic inflammatory response syndrome; Translations: [Systemic inflammatory response syndrome (SIRS) of non-infectious origin without acute organ dysfunction]81-33-8062TbcrtdurQcysf lower respiratory disease (20 sources)Cough; Translations: [Subacute cough]Onset: EpisodicOther lower respiratory disease (1 source)Pleuritic pain; Translations: [Pleurodynia]56-45-8875HrqzntlyWdogc nervous system disorders (20 sources)Chronic pain; Translations: [Other chronic pain]Onset: 09-30-2021 ChronicOther nervous system disorders (2 sources)Neuropathy; Translations: [Polyneuropathy, unspecified]ChronicOther nervous system disorders (18 sources)PolyneuropathyOnset: 030097-38-6118FrjsvkqOfanu nervous system disorders (1 source)Disorder of brain; Translations: [Encephalopathy, unspecified]Onset: 24-42-3974HsyhqniNrztx nervous system disorders (9 sources)Other chronic pain; Translations: [OTHER CHRONIC PAIN]Onset: 19-08-4173YtnsdmvRijiw nervous system disorders (20 sources)Chronic pain syndrome; Translations: [Chronic pain syndrome]Onset: 046762-75-3001CmedayqUofyn nervous system disorders (1 source)Chronic pain syndrome; Translations: [Chronic pain syndrome]Onset: 88-39-1474ObfkpfsPvypg nervous system disorders (8 sources)Abnormal gait; Translations: [Unspecified abnormalities of gait and mobility]61-75-0060ZglvdhggWrvwk nervous system disorders (1 source)H/O: brain disorderEpisodicOther nervous system disorders (1 source)Skin sensation disturbance; Translations: [Anesthesia of skin]Episodic Other non-traumatic joint disorders (20 sources)Ankle rmzawmgrqje06-24-1296IuaybqefUaepl non-traumatic joint disorders (20 sources)Instability of joint of left ankle; Translations: [Other instability, left ankle]Onset: 27-04-2593XbrwlqxsTdauq non-traumatic joint disorders (20 sources)Pain in right knee; Translations: [Pain in joint, lower leg]Onset: 172372-79-0881PkiwvweyUutwh nutritional; endocrine; and metabolic disorders (5 sources)Hypomagnesemia; Translations: [Disorders of magnesium metabolism] Onset: 319965-51-0200BysvwcjZdvwl nutritional; endocrine; and metabolic disorders (20 sources)Obesity; Translations: [Obesity, unspecified]Onset: 11-04-2021 22-51-7476KcgktytOwyzt nutritional; endocrine; and metabolic disorders (20 sources)Morbid obesity; Translations: [Morbid (severe) obesity due to excess calories]Onset: 65-21-8874CxvfecgCwwkj nutritional; endocrine; and metabolic disorders (20 sources)Body mass index 40+ - severely obese; Translations: [Body mass index (BMI) 45.0-49.9, adult]Onset: 75-81-8338YaoundaIreah nutritional; endocrine; and metabolic disorders (2 sources)Obese class II; Translations: [Body mass index (BMI) 36.0-36.9, adult]ChronicOther nutritional; endocrine; and metabolic disorders (1 source)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; Translations: [Lactose intolerance, unspecified]Onset: 99-75-6107KuopqqpKmrrn nutritional; endocrine; and metabolic disorders (15 sources)Intolerance to -07-4495DgvhnpvYqxwf nutritional; endocrine; and metabolic disorders (6 sources)Hypomagnesemia; Translations: [Hypomagnesemia]Onset: 01-09-2022 ChronicOther nutritional; endocrine; and metabolic disorders (4 sources)Hypophosphatemia; Translations: [Other disorders of phosphorus metabolism]87-52-2860TvamvvqTjtoj nutritional; endocrine; and metabolic disorders (3 sources)Other disorders of phosphorus metabolism; Translations: [Disorders of phosphorus metabolism]31-64-2949YbcrzjdUftgn nutritional; endocrine; and metabolic disorders (1 source)Morbid (severe) obesity due to excess calories; Translations: [MORBID SEVERE OBES D/T EXCESS SANJAY]Onset: 10-67-1726LsicpjdFhukm nutritional; endocrine; and metabolic disorders (1 source)Body mass index (BMI) 45.0-49.9, adult; Translations: [BODY MASS INDEX BMI 45.0-49.9 ADULT]Onset: 25-68-8289TviwdmkFjeos nutritional; endocrine; and metabolic disorders (1 source)Body mass index (BMI) 40.0-44.9, adult; Translations: [BODY MASS INDEX BMI 40.0-44.9 ADULT]Onset: 43-41-2182JcdfwcoQvxpc nutritional; endocrine; and metabolic disorders (5 sources)Severe obesity; Translations: [Morbid (severe) obesity due to excess calories]Onset: 585466-14-2750HowieoyLifyn screening for suspected conditions (not mental disorders or infectious disease) (20 sources)Abnormal quantity of physiologic substance; Translations: [Culture positive for methicillin resistant Staphylococcus aureus]Onset: 11-22-2014 30-44-7203DjxjesfuChovegy on above:2015- armpit and chin- [place] at [facility] [place] armpit and chin- [place] [facility] [place] skin disorders (4 sources)Ingrowing nail; Translations: [Ingrowing nail]65-80-0933EmjubgkuXxjvu skin disorders (3 sources)Ingrowing nail; Translations: [Ingrowing nail]78-47-9207RutihqmwZcljt upper respiratory infections (2 sources)Acute upper respiratory infection, unspecified; Translations: [Upper respiratory infection]Onset: 518382-95-6835CoecfwkvQzecgp media and related conditions (3 sources)Acute suppurative otitis media without spontaneous rupture of ear drum; Translations: [Acute suppurative otitis media without spontaneous rupture of ear drum, left ear]56-18-3583IsodbablOdnsapllh (1 source)Left hemiparesisChronicPeripheral and visceral atherosclerosis (11 sources)Peripheral vascular disease; Translations: [Peripheral vascular disease, unspecified]09-41-7114PtjbzysWffubnec codes; unclassified (20 sources)Obstructive sleep apnea syndrome; Translations: [Obstructive sleep apnea (adult) (pediatric)]Onset: 598177-02-6151PimsjynDoosjzon codes; unclassified (20 sources)Sleep nqcav68-19-8491MdgwlvoRppvtsek codes; unclassified (1 source)Insomnia; Translations: [Other insomnia]ChronicResidual codes; unclassified (1 source)Sleep apnea, unspecified; Translations: [SLEEP APNEA UNSPECIFIED] Onset: 53-29-0719QuadvbrNlpzaqbu codes; unclassified (12 sources)Noncompliance with medication regimen; Translations: [Patient's other noncompliance with medicationregimen]Onset: 36-07-3632OqadrycrTghignyp codes; unclassified (1 source)Altered mental statusEpisodicResidual codes; unclassified (6 sources)Pain; Translations: [Pain, unspecified]28-58-3220QrujthjrLplanwpq codes; unclassified (20 sources)Chronic back fyxk55-43-7957UysjbkdeCwnihbja codes; unclassified (2 sources)Problem situation; Translations: [Other problems related to lifestyle]Onset: 82-95-9401LqaihpbfBvyzjzuu codes; unclassified (20 sources)Electronic cigarette bbak20-01-7617RgnvlvtpVkgzwkpa codes; unclassified (1 source)Procedure carried out on subject; Translations: [Encounter for prophylactic measures, unspecified]Onset: 68-18-5174IlfjfqtwRkgsywuc codes; unclassified (1 source)H/O: Disorder; Translations: [Personal history of other specified conditions]Onset: 82-14-8574VjrgyhcpXckcdevt codes; unclassified (7 sources)Staring; Translations: [Transient alteration of awareness]09-06-2018 EpisodicResidual codes; unclassified (1 source)Acquired absence of other specified parts of digestive tract; Translations: [ACQ ABSENCE OTH PART DIGESTV TRACT]Onset: 24-26-6604Tzxpfrcr Residual codes; unclassified (1 source)Failed encounter; Translations: [No-show for appointment]11-07-2024 EpisodicResidual codes; unclassified (1 source)Pain, unspecified; Translations: [Pain, unspecified]Onset: 12-02-2024 EpisodicRetinal detachments; defects; vascular occlusion; and retinopathy (20 sources)Hemorrhage of left retina; Translations: [Retinal hemorrhage, left eye]Onset: 556070-28-0836NtfakomUyhdvbhzczwst and other psychotic disorders (20 sources)Schizophrenia; Translations: [Schizophrenia, unspecified]Onset: 323585-91-6504VplggmhNhlmfttmx and history of mental health and substance abuse codes (1 source)Personal history of nicotine dependence; Translations: [PERSONAL HISTORY OF NICOTINE DEPEND]Onset: 70-74-1858SldkhxghVotv and subcutaneous tissue infections (20 sources)Cellulitis of chin ; Translations: [Abscess of chin]Onset: 11-30-2014 Resolved: 127329-73-7743VbklhlwnTfkrvliigmj; intervertebral disc disorders; other back problems (20 sources)Degeneration of lumbar intervertebral disc; Translations: [Other intervertebral disc degeneration, lumbar region]Onset: 771502-33-4377 ChronicSpondylosis; intervertebral disc disorders; other back problems (20 sources)Sciatica; Translations: [Neck pain]Onset: EpisodicSprains and strains (4 sources)Injury of thigh; Translations: [Strain of muscle, fascia and tendon of the posterior muscle group at thigh level, right thigh, initial encounter] Onset: 950634-81-3583DzrxyfmdFrdcokwrw-euvwvcd disorders (20 sources)Nicotine dependence; Translations: [Smoker]Onset: 04-07-2022 40-15-8698YjdifnuScgflfv on above:Added secondary to documentation in Social History.Superficial injury; contusion (5 sources)Contusion of lower back and pelvis, initial encounter; Translations: [Contusion of left knee]Onset: 99-26-4889OlyjaalhWsldwto (20 sources)Syncope and collapse; Translations: [Syncope]Onset: 12-15-2011 50-47-2904KmcedkqvZcurgbc disorders (20 sources)Hypothyroidism; Translations: [Hypothyroidism, unspecified]Onset: 379438-78-8439YpmnapxAurcmrhpajif (3 sources)Suspected infectious disease; Translations: [MRSA (methicillin- resistant Staph aureus) carrier/suspected carrier]Onset: Unclassified (1 source)NICOTINE DEPEND CIGARETTES UNCOMPOnset: 42-08-4476Koezztatqcgd (1 source)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 CURRENT DRUG THERAPYOnset: 95-80-6144Dkrbpyknetfv (1 source)TYPE 2 DM WITHOUT COMPLICATIONSOnset: 11-27-9394Csrwudlqbsjk (1 source)GROUP HOME CURRENT USE OF INSULINOnset: 77-59-2709Ejbkygnwqdee (1 source)GROUP HOME USE ORAL HYPOGLYCEMIC DXOnset: 46-66-5301Wmhfogwwjgjm (1 source)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 CURRENT USE OF ASPIRINOnset: 10-19-2477Xrufegeibhga (20 sources)Patient encounter nvgcyk26-87-5438Fnwsomfwmfrc (18 sources)Pain of joint of kneeOnset: 237853-51-7667Jqzatynifbpg (1 source)CONTACT W/AND (SUSP) EXPOS COVID-19; Translations: [CONTACT W/AND (SUSP) EXPOS COVID-19]Onset: 80-82-1726Hplfptdekcsx (4 sources)COUGH, UNSPECIFIED; Translations: [COUGH, UNSPECIFIED]Onset: 22-16-3396Okixlulcbaaw (1 source)LOW BACK PAIN, UNSPECIFIED; Translations: [LOW BACK PAIN, UNSPECIFIED] Onset: 44-73-1678Hgoxhdwrafqw (1 source)Finding of sensation of lchybqq27-45-6955Otpkwxzlfhul (2 sources)Chronic pain of both jpvyu95-28-8059Nnnlpixdagzv (1 source)Patient's noncompliance with other medical treatment and regimen due to unspecified reason; Translations: [Patient's noncompliance with other medical treatment and regimen due to unspecified reason]Onset: 39-83-2244Otrsgqlcaxab (1 source)Low back pain, unspecified; Translations: [Low back pain, unspecified] Onset: 33-02-1361Vgexevzxctpf (1 source)Sudden vision lossOnset: 70-25-8412Aqmgvsxszdng (1 source)Other intervertebral disc degeneration, lumbar region without mention of lumbar back pain or lower extremity pain; Translations: [Other intervertebral disc degeneration, lumbar region without mentionof lumbar back pain or lower extremity pain]Onset: 80-67-8163Dkdbenawrosz (1 source)Other intervertebral disc degeneration, lumbar region with discogenic back pain only; Translations:[Other intervertebral disc degeneration, lumbar region with discogenic back pain only]Onset: 14-67-8140Zqcxeldlbkpf (1 source)Disruption or dehiscence of closure of internal operation (surgical) wound of abdominal wall muscleor fascia, initial encounter; Translations: [Disruption or dehiscence of closure of internal operation (surgical) wound of abdominal wall muscle or fascia, initial encounter]Onset: 33-08-2830Xshgslhaylna (1 source)Other intervertebral disc degeneration, lumbar region with discogenic back pain and lower extremitypain; Translations: [Other intervertebral disc degeneration, lumbar region with discogenic back pain and lower extremity pain] Onset: 15-10-1850Sogdxkc tract infections (20 sources)Acute cystitis with hematuria; Translations: [Urinary tract infectious disease]Onset: 47-94-6771CiunwerjHaejr infection (20 sources)Human papilloma virus mrgykcngh29-09-7740Vdnsuzja Past or Other Problems Problem ClassificationProblemDateDocumented DateEpisodic/ChronicAbdominal pain (20 sources)Right lower quadrant pain; Translations: [Lower abdominal pain] Onset: 02-04-2008 Resolved: 619487-22-4026RzltdrmhWtsor and unspecified renal failure (20 sources)Acute kidney failure, unspecified; Translations: [Acute injury of kidney]Onset: 12-03-2014 Resolved: 268638-08-9347KpybzbtcCobwteujc infection; unspecified site (20 sources)Other bacterial infections of unspecified site; Translations: [History of methicillin resistant Staphylococcus aureus infection]Onset: 11-30-2014 Resolved: 367670-63-4272XqoeaonuQhteitl dysrhythmias (20 sources)Palpitations; Translations: [Bradycardia]Onset: EpisodicComplications of surgical procedures or medical care (20 sources)Wound dehiscence; Translations: [Abdominal wound dehiscence, initial encounter]Onset: 03-22-2024 Resolved: 034362-75-1232TqugvawlNeqtvzqpcx associated with dizziness or vertigo (20 sources)Dizziness; Translations: [Dizziness and giddiness]Onset: 01-01-2022 05-06-2995PuheypdqIemktznj mellitus without complication (20 sources)Hyperglycemia, unspecified; Translations: [Insulin pump present] Onset: 31-65-8604FwlelwxgIgnqk and electrolyte disorders (20 sources)Metabolic acidosis, normal anion gap (NAG); Translations: [Hypokalemia]Onset: 12-03-2014 Resolved: 770200-35-8959WquskhjuYrxreyca; including migraine (20 sources)Headache; Translations: [Headache]Onset: EpisodicImmunizations and screening for infectious disease (20 sources)Contact with and (suspected) exposure to other viral communicable diseases; Translations: [Carrier or suspected carrier of Methicillin resistant Staphylococcus aureus]Onset: 12-01-2014 Resolved: 11-42-6485ZiytqdnhFwlsnaivag infection (1 source)Viral intestinal infection, unspecified; Translations: [VIRAL INTESTINAL INFECTION UNSPEC]Onset: 42-41-9969IwcxaoboLtynwco examination/evaluation (1 source)Encounter for preprocedural cardiovascular examination; Translations: [Encounter for preprocedural cardiovascular examination]Onset: 07-17-2017 EpisodicMood disorders (20 sources)Mood disordersOnset: 03-29-2024 Resolved: 512992-54-9077Xjrkyzx (20 sources)Candidiasis; Translations: [Candidiasis, unspecified]Onset: 388091-36-6745DdowrsflExtowa and vomiting (12 sources)Nausea; Translations: [Nausea]Onset: 02-04-2008 Resolved: 771755-09-6423FqeoykxqSgfjgyblqyd chest pain (20 sources)Chest pain, unspecified; Translations: [Other chest pain]Onset: 02-16-2017 Resolved: 42-38-6472JsfddfnmYelsauhwmam deficiencies (20 sources)Cobalamin deficiency; Translations: [Deficiency of other specified B group vitamins]Onset: 359047-92-9002WapbhbvwFbmln aftercare (7 sources)intermediate card tender (current) use of insulin; Translations: [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 CURRENT USE OF INSULIN]Onset: 70-08-7571GiudmdnjVpdtf aftercare (3 sources)Other intermediate card tender (current) drug therapy; Translations: [OTH 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 CURRENT DRUG THERAPY]Onset: 49-71-9632MktrhqkcLrjal aftercare (1 source)FDC (current) use of 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/antiplatelets; Translations: [GROUP HOME ANTITHROMBOT/ANTIPLATLETS]Onset: 27-30-5263Tiakgtvv Other aftercare (20 sources)Long-term current use of drug therapy; Translations: [Encounter for therapeutic drug level monitoring]Onset: 05-13-2024 Resolved: 432358-98-8026YzbxrmgyUuzbt aftercare (2 sources)Encounter for therapeutic drug level monitoring; Translations: [Encounter for therapeutic drug level monitoring]Onset: 77-09-8699DgcddhlnOxjjn aftercare (2 sources)intermediate card tender (current) use of opiate analgesic; Translations: [intermediate card tender (current) use of opiate analgesic]Onset: 98-94-4896EzhfknkdJwggl circulatory disease (1 source)Personal history of other diseases of the circulatory system; Translations: [Personal history of other diseases of the circulatory system] Onset: 80-36-2617ZvuvuorkEtite circulatory disease (20 sources)History of cerebrovascular accident; Translations: [Personal history of transient ischemic attack (TIA), and cerebral infarction without residual deficits]Onset: 135163-67-6402CembfgfmHeeor connective tissue disease (20 sources)Fibromyalgia; Translations: [Fibromyalgia]Onset: 09-09-2021 83-65-4465MuqsuerlSahdn connective tissue disease (5 sources)Pain in toe; Translations: [Pain in left toe(s)]Onset: 01-09-2024 63-04-8646MzxqbytiHrbyt connective tissue disease (1 source)Myalgia, unspecified site; Translations: [MYALGIA UNSPECIFIED SITE] Onset: 94-13-7753PvzzhcspUghrj connective tissue disease (20 sources)Spasm; Translations: [Other muscle spasm]Onset: EpisodicOther connective tissue disease (20 sources)Myofascial pain syndrome; Translations: [Myalgia, other site]Onset: 060429-59-3311QlvjqnieIvbtm connective tissue disease (2 sources)Other specified soft tissue disorders; Translations: [Other specified soft tissue disorders]Onset: 72-30-2080TnuupickGgyws connective tissue disease (2 sources)Other symptoms and signs involving the musculoskeletal system; Translations: [Other musculoskeletalsymptoms referable to limbs]Onset: 147995-57-3516XktseldpLtssw ear and sense organ disorders (3 sources)Otalgia, left ear; Translations: [Otalgia, unspecified]Onset: 02-23-2009 Resolved: 129918-70-3307LfhhwadcNhgqp female genital disorders (3 sources)Polyp of corpus uteri; Translations: [Polyp of corpus uteri]Onset: 056297-96-5339AimrhehsOacea gastrointestinal disorders (6 sources)Diarrhea, unspecified; Translations: [DIARRHEA UNSPECIFIED]Onset: 00-01-6357SdyaemtlRxtfq gastrointestinal disorders (20 sources)Incontinence of feces; Translations: [Full incontinence of feces] Onset: 435728-85-6283PdmskfyiFihwr injuries and conditions due to external causes (2 sources)Systemic inflammatory response syndrome (SIRS) of non-infectious origin without acute organ dysfunction; Translations: [Systemic inflammatory response syndrome (sirs) of non-infectious origin withoutacute organ dysfunction]Onset: 19-14-2937LnmewnumKggaz lower respiratory disease (3 sources)Finding of respiration; Translations: [Other forms of dyspnea]Onset: 03-17-2008 Resolved: 904740-63-4055OmlzenljHywca nervous system disorders (3 sources)Anesthesia of skin; Translations: [ANESTHESIA OF SKIN]Onset: 86-93-6221BigslladYeapx non-traumatic joint disorders (3 sources)Arthralgia of the ankle and/or foot; Translations: [Pain in unspecified ankle and joints of unspecified foot]Onset: 03-17-2008 Resolved: 162671-48-2984SoqckvhiTytfs non-traumatic joint disorders (4 sources)Pain in left knee; Translations: [Pain in left knee]Onset: 03-22-2024 EpisodicOther nutritional; endocrine; and metabolic disorders (1 source)Personal history of other endocrine, nutritional and metabolic disease; Translations: [Personal history of other endocrine, nutritional and metabolic disease]Onset: 78-54-6406BmatoymxKzokn nutritional; endocrine; and metabolic disorders (20 sources)Weight gain; Translations: [Abnormal weight gain]Onset: 05-17-2023 Resolved: 055203-61-5690LcjvtmkgElayq nutritional; endocrine; and metabolic disorders (20 sources)Weight increased; Translations: [Abnormal weight gain]Onset: 05-17-2023 Resolved: 027336-83-6442YzrxfnzeOdxbx skin disorders (20 sources)Disorder of skin pigmentation; Translations: [Disorder of pigmentation, unspecified]Onset: 364498-44-0549CjjksureMgkdjjum codes; unclassified (20 sources)Insomnia; Translations: [Insomnia, unspecified]Onset: 05-06-2023 22-69-0478CjuoybedVwurzafg codes; unclassified (1 source)Procedure and treatment not carried out because of patient's decision for other reasons; Translations: [PROC AND TX NOT CARRIED OUT PT OTH RSN]Onset: 01-04-6729XuwckhkeWrajyaag codes; unclassified (1 source)Acquired absence of both cervix and uterus; Translations: [ACQUIRED ABSENCE BOTH CERVIX AND UTERUS]Onset: 24-18-5110OignerreGyfkiezx codes; unclassified (1 source)Patient's noncompliance with other medical treatment and regimen; Translations: [PT NONCOMPLIANCE OTH MED TX AND REGIMEN]Onset: 43-65-3066Awoqdvvm Residual codes; unclassified (3 sources)Sleep disorder; Translations: [Sleep disorder, unspecified]Onset: 857154-46-1028EzoswuzdJcfolwse codes; unclassified (3 sources)Noncompliance with treatment; Translations: [Noncompliance]Onset: 445673-42-0574QevpqkdiPiyqungh codes; unclassified (20 sources)Family history of disorder of lung; Translations: [Family history of other diseases of the respiratory system]Onset: 097091-71-6881Ptnnpvpo Residual codes; unclassified (20 sources)Family history of dementia; Translations: [Family history of other mental and behavioral disorders]Onset: 314513-09-9337CrcvvhqmAhfsjccqly (20 sources)Sepsis; Translations: [Bacteremia caused by Gram-positive bacteria] Onset: 12-03-2014 Resolved: 142122-48-2514QfwyjcbqZnytzfxssplv (1 source)Family history of ischemic heart disease and other diseases of the circulatory system; Translations: [Family history of ischemic heart disease and other diseases of the circulatory system]Onset: 64-28-0012WtmlzkesQzcktxqovbmg (20 sources)Bipolar (qualifier value)95-47-6958Rqhzgmmimmby (1 source)COUGH, UNSPECIFIED; Translations: [COUGH, UNSPECIFIED]Onset: 41-08-5039Cmntnxxntwie (1 source)Onset: 595461-86-7880Bhefqsvyaluz (1 source)Patient's noncompliance with other medical treatment and regimen due to unspecified reason; Translations: [Patient's noncompliance with other medical treatment and regimen due to unspecified reason]Onset: 69-89-9114Vbtxkhiwyfpz (1 source)Low back pain, unspecified; Translations: [Low back pain, unspecified] Onset: 19-31-6205Nbsqankspltk (1 source)Other intervertebral disc degeneration, lumbar region without mention of lumbar back pain or lower extremity pain; Translations: [Other intervertebral disc degeneration, lumbar region without mentionof lumbar back pain or lower extremity pain]Onset: 15-89-4305Gblhornpvmyx (1 source)Other intervertebral disc degeneration, lumbar region with discogenic back pain only; Translations:[Other intervertebral disc degeneration, lumbar region with discogenic back pain only]Onset: 82-03-9398Eaumujqepiqs (1 source)Disruption or dehiscence of closure of internal operation (surgical) wound of abdominal wall muscleor fascia, initial encounter; Translations: [Disruption or dehiscence of closure of internal operation (surgical) wound of abdominal wall muscle or fascia, initial encounter]Onset: 81-20-9707Djwyeuoifrry (1 source)Other intervertebral disc degeneration, lumbar region with discogenic back pain and lower extremitypain; Translations: [Other intervertebral disc degeneration, lumbar region with discogenic back pain and lower extremity pain] Onset: 53-16-5131Wxjtq infection (1 source)COVID-19Onset: 06-14-2021 Resolved: 06-14-2021 Results Test NameValueInterpretationReference RangeFacilityGent Peakon 02-62-5210Usxw Pk 4.4 microgram/mLAbnormal5.0-10.0[facility]ullComment on above: Result Comment: Critical Result Verified by Repeat Analysis Critical Result S_GEN_P:4.4 Called to and read back by: TONIA SIMENTAL at: 02/03/2025 12:24:23 by:MARIA Merformed By: #### [id number] #### [facility] [address] [place], [place] [address]Vwja Troughon 14-08-9054Huue Tr3.0 microgram/mLAbnormal0.5-1.9 [facility]ullComment on above:Result Comment: Critical Result Verified by Repeat Analysis Critical Result S_GEN_T:3.0 Called to and read back by: TONIA SIMENTAL at: 02/03/2025 12:23:11 by:MARIA Merformed By: #### [id number] #### [facility] [address], [place] [address]Vlez Tr Dose TmNo info givenInvalid Interpretation [facility] CenterComment [facility] above:Performed By: #### [id number] #### [facility] [address], [place] [address]Pfz Miscellaneous-LCon 13-38-0648Zce Miscellaneousclerical errorInvalid Interpretation [facility] CenterComment on above: Order Comment: Clerical error. Cannot be cancelled [id number] 02/03/2025 10:29:36 EDTPerformed By: #### [id number] #### [facility] [address] [place] [id number] [id number] Interpretation [facility] Medical CenterComment on above:Order Comment: Clerical error. Cannot be cancelled [id number] 02/03/2025 10:29:36 EDTPerformed By: #### [id number] #### [facility] [address] [place] [id number] NamegentamicinInvalid Interpretation [facility] CenterComment on above:Order Comment: Clerical error. Cannot be cancelled [id number] 02/03/2025 10:29:36 EDTPerformed By: #### [id number] #### [facility] [address] [place] [address]9747Wkvhvll (Bld) [Mass/Vol]on 73-28-1481Bjdiqoa Blood, BUR855 mg/dLNovant HealthHbA1c (Bld) [Mass fraction]Ordered By: Shy Hurd on 57-17-5482GEDKSamaritan HospitalLaboratory - Hematology and Cell counts Ordered By: Shy Hurd on 06-47-6766XmB8b (Bld) [Mass fraction]8.4 %Samaritan HospitalLab Miscellaneous-LCon 82-45-4211Myv MiscellaneousCOMMENTInvalid Interpretation [facility] CenterComment on above:Result Comment: Test Ordered: [id number] Clonazepam, Ur as Metabolite 7-Aminoclonazepam Negative ng/ml MX This test was developed and its performance characteristics determined [facility] It has not been cleared or approved by the Food and Drug Administration. Performed at: [address] [id number] Romariojose danielkayy WaltondestineyPerformed By: #### [id number] #### [facility] [address] [place], [place] [address]Enx Miscellaneous-LCon 33-50-6178Xqfq [id number] Interpretation [facility] CenterComment on above:Performed By: #### [id number] #### [facility] [address] [place], [place] [address]Jjym NameClonazepamInvalid Interpretation [facility] Medical CenterComment on above:Performed By: #### [id number] #### [facility] [address] [place], [place] [address]U Drug Screenon 01-09-2025U Amph ScrNegativeNormalNEGATIVE [facility] on above:Result Comment: Negative Cutoff: <1000 ng/mLPerformed By: #### [id number] #### [facility] [address] [place], [place] [address]V Julianna ScrNegativeNormalNEGLake County Memorial Hospital - West Comment on above:Result Comment: Negative Cutoff: <200 ng/mLPerformed By: #### [id number] #### [facility] [address] [place], [place] [address]L Benzodia ScrNegativeNormalNEGLake County Memorial Hospital - West Comment on above:Result Comment: Negative Cutoff: <200 ng/mLPerformed By: #### [id number] #### [facility] [address] [place], [place] [address]D Cannab ScrNegativeNormalNEGLake County Memorial Hospital - West Comment on above:Result Comment: Negative Cutoff: <50 ng/mLPerformed By: #### [id number] #### [facility] [address] [place], [place] [address]Z Cocaine ScrNegativeNormalNEGATIVESelect Medical [facility] Comment on above:Result Comment: Negative Cutoff: <300 ng/mLPerformed By: #### [id number] #### [facility] [address] [place], [place] [address]U FentanylNegativeNormalNEGLake County Memorial Hospital - West Comment on above:Result Comment: Negative Cutoff: <5 ng/mL These drug screen results are to be used for medical (i.e., treatment) purposes only. Unconfirmed drug screening results must not be used for non-medical purposes (e.g., employment testing, legal testing).Performed By: #### [id number] #### [facility] [address] [place], [place] [address]X Opiate ScrPositiveAbnormalNEGLake County Memorial Hospital - West Comment on above:Result Comment: If confirmation is required, please notify the lab within 72 hours Result verified by repeat analysis, Unconfirmed by alternate method Negative Cutoff: <300 ng/mLPerformed By: #### [id number] #### [facility] [address] [place], [place] [address]C PCP ScrNegativeNormalNEGLake County Memorial Hospital - West Comment on above:Result Comment: Negative Cutoff: <25 ng/mL These drug screen results are to be used for medical (i.e., treatment) purposes only. Unconfirmed drug screening results must not be used for non-medical purposes (e.g., employment testing, legal testing).Performed By: #### [id number] #### [facility] [address] [place], [place] [address]Pmymj Cultureon 99-57-9128Uluqasjr identified Cx Nom (U)<9,000 colonies/ml mixed bacterial skin contaminants 2 Days PERFORMED BY: [place] [address] PATHOLOGIST CELLAR PACKER HARESH BANERJEE M.D.[facility] Physician GroupComment on above: Performed By: #### CUU #### [place] [address] USAUrine cultureOrdered By: Ben Horn on 12-28-2024 Bacteria identified Cx Nom (U)2 DaysCorey HospitalBASIC METABOLIC PANELon 25-36-5001Uyrwx gap [Moles/Vol]6 mmol/LNormal5-15[facility] HospitalComment on above:Performed By: #### BEDG #### [facility] ([facility]) [address] [place] [address] VIRCalcium [Mass/Vol]8.4 mg/dLLow8.5-10.5PSt. Charles Hospital HospitalComment on above:Performed By: #### BEDG #### [facility] ([facility]) [address] [place] [address] VIRChloride [Moles/Vol]111 mmol/QCiaw15-988WenWlkett [place] HospitalComment on above:Performed By: #### BEDG #### [facility] ([facility]) [address] [place] [address] VIRCO2 [Moles/Vol]22 mmol/JFzswiv76-31OluCzjrgjProMedica Fostoria Community Hospital Comment on above:Performed By: #### BEDG #### [facility] ([facility]) [address] [place] [address] VIRCreatinine [Mass/Vol]0.95 mg/dLNormal0.40-1.00ProCleveland Clinic South Pointe HospitalComment on above:Result Comment: METHOD TRACEABLE TO IDMS STANDARDPerformed By: #### BEDG #### [facility] ([facility]) [address] [place] [address] VIRGFR/1.73 sq M.predicted among non-blacks MDRD (S/P/Bld) [Vol rate/Area]74 mL/min/{1.73_m2}Normal>=60ProCleveland Clinic South Pointe HospitalComment on above:Result Comment: Reported eGFR is based on the CKD-EPI 2020 equation that does not use a race coefficient.Performed By: #### BEDG #### [facility] ([facility]) [address] [place] [address] VIRGlucose [Mass/Vol]225 mg/dEWoaf79-30NefXizfqg [place] HospitalComment on above:Performed By: #### BEDG #### [facility] ([facility]) [address] [place] [address] VIRPotassium [Moles/Vol]4.6 mmol/LNormal3.5-5.0ProMercy Health Kings Mills Hospital HospitalComment on above:Performed By: #### BEDG #### [facility] ([facility]) [address] [place] [address] VIRSodium [Moles/Vol]139 mmol/KFeimif369-890LfzGzbbbx [place] HospitalComment on above:Performed By: #### BEDG #### [facility] ([facility]) [address] [place] [address] VIRUrea nitrogen [Mass/Vol]17 mg/dLNormal5-23ProMercy Health Kings Mills Hospital HospitalComment on above:Performed By: #### BEDG #### [facility] ([facility]) [address] [place] [address] VIRBEDSIDE GLUCOSEon 97-27-0554Ugktqzw [Mass/Vol]244 mg/dLHigh 65-99ProMercy Health Kings Mills Hospital HospitalComment on above:Performed By: #### BEDG #### [facility] ([facility]) [address] [place] [address] VIRGlucose [Mass/Vol]265 mg/kMDvse81-80CmmDhayfz [place] HospitalComment on above:Performed By: #### BEDG #### [facility] ([facility]) [address] [place] [address] VIRBasic Metabolic Panelon 18-50-2286Fpycd gap [Moles/Vol]6 mmol/L5 - 15 mmol/LProMedica Health SystemCalcium [Mass/Vol]8.4 mg/dLLow8.5 - 10.5 mg/dLProMedica Health SystemChloride [Moles/Vol]111 mmol/LHigh98 - 109 mmol/LProMedica Health SystemCO2 [Moles/Vol]22 mmol/L22 - 32 mmol/LPrJoint Township District Memorial HospitalCreatinine [Mass/Vol]0.95 mg/dL0.40 - 1.00 mg/dLBrown Memorial HospitalComment on above:METHOD TRACEABLE TO IDMS STANDARDEGFR Non-Race Dependent 74- PINFPSamaritan North Health CenterComment on above:Reported eGFR is based on the CKD-EPI 2020 equation that does not use a race coefficient. Glucose [Mass/Vol]225 mg/xXHulu87 - 99 mg/dLBrown Memorial Hospital Interpretation and review of laboratory resultsAbMontefiore New Rochelle Hospital Potassium [Moles/Vol]4.6 mmol/L3.5 - 5.0 mmol/[facility] SystemSodium [Moles/Vol]139 mmol/L134 - 146 mmol/Galion HospitalUrea nitrogen [Mass/Vol]17 mg/dL5 - 23 mg/dLWills Eye Hospital Bedside Glucose *Place/Obtain serum glucose if >500 per glucometer.on 12-05-2024 Glucose [Mass/Vol]244 mg/dDJfgb70 - 99 mg/dLBrown Memorial Hospital Interpretation and review of laboratory resultsAbBellin Health's Bellin Psychiatric CenterGlucose [Mass/Vol]265 mg/eCJqeo69 - 99 mg/dLBrown Memorial HospitalInterpretation and review of laboratory resultsAbJefferson Health NortheastBASIC METABOLIC PANELon 43-96-8709Kbxux gap [Moles/Vol]8 mmol/LNormal5-15Morrow County HospitalComment on above:Performed By: #### BEDG #### [facility] ([facility]) [address] [place] [address] VIRCalcium [Mass/Vol]7.6 mg/dLLow8.5-10.5PProMedica Fostoria Community HospitalComment on above:Performed By: #### BEDG #### [facility] ([facility]) [address] [place] [address] VIRChloride [Moles/Vol]111 mmol/SLzyk24-914CudArbykaMorrow County HospitalComment on above:Performed By: #### BEDG #### [facility] ([facility]) [address] [place] [address] VIRCO2 [Moles/Vol]20 mmol/PUcm08-73IapZgiylaThe Surgical Hospital at Southwoods Comment on above:Performed By: #### BEDG #### [facility] ([facility]) [address] [place] [address] VIRCreatinine [Mass/Vol]0.89 mg/dLNormal0.40-1.00ProMercy Health Kings Mills Hospital HospitalComment on above:Result Comment: METHOD TRACEABLE TO IDMS STANDARDPerformed By: #### BEDG #### [facility] ([facility]) [address] [place] [address] VIRGFR/1.73 sq M.predicted among non-blacks MDRD (S/P/Bld) [Vol rate/Area]80 mL/min/{1.73_m2}Normal>=60ProCleveland Clinic South Pointe HospitalComment on above:Result Comment: Reported eGFR is based on the CKD-EPI 2020 equation that does not use a race coefficient.Performed By: #### BEDG #### [facility] ([facility]) [address] [place] [address] VIRGlucose [Mass/Vol]253 mg/xVVhbl65-52MwcBcmaecCleveland Clinic South Pointe HospitalComment on above:Performed By: #### BEDG #### [facility] ([facility]) [address] [place] [address] VIRPotassium [Moles/Vol]4.3 mmol/LNormal3.5-5.0ProMercy Health Kings Mills Hospital HospitalComment on above:Performed By: #### BEDG #### [facility] ([facility]) [address] [place] [address] VIRSodium [Moles/Vol]139 mmol/AZrupmh442-500TtyZipvfh [place] HospitalComment on above:Performed By: #### BEDG #### [facility] ([facility]) [address] [place] [address] VIRUrea nitrogen [Mass/Vol]15 mg/dLNormal5-23ProMercy Health Kings Mills Hospital HospitalComment on above:Performed By: #### BEDG #### [facility] ([facility]) [address] [place] [address] VIRBEDSIDE GLUCOSEon 94-84-0469Xraoslz [Mass/Vol]348 mg/dLHigh 65-99ProMercy Health Kings [facility] Hospital HospitalComment on above:Performed By: #### BEDG #### [facility] ([facility]) [address] [place] [address] VIRGlucose [Mass/Vol]200 mg/hBAzyg70-92ZarBvjseq [place] HospitalComment on above:Performed By: #### BEDG #### [facility] ([facility]) [address] [place] [address] VIRGlucose [Mass/Vol]348 mg/wHIrno30-35TjcHrpjti [place] HospitalComment on above:Performed By: #### BEDG #### [facility] ([facility]) [address] [place] [address] VIRGlucose [Mass/Vol]251 mg/fNEwlr24-88MqhXajjit [place] HospitalComment on above:Performed By: #### BEDG #### [facility] ([facility]) [address] [place] [address] VIRGlucose [Mass/Vol]262 mg/dAPcfc14-71JjeHirsgg [place] HospitalComment on above:Performed By: #### BEDG #### [facility] ([facility]) [address] [place] [address] VIRBasic Metabolic Panelon 40-10-9595Znsnd gap [Moles/Vol]8 mmol/L5 - 15 mmol/LProMedica Health SystemCalcium [Mass/Vol]7.6 mg/dLLow8.5 - 10.5 mg/dLProMedica Health SystemChloride [Moles/Vol]111 mmol/LHigh98 - 109 mmol/LProMedica Health SystemCO2 [Moles/Vol]20 mmol/LLow22 - 32 mmol/[facility] SystemCreatinine [Mass/Vol]0.89 mg/dL0.40 - 1.00 mg/dLBrown Memorial HospitalComment on above:METHOD TRACEABLE TO IDMS STANDARDEGFR Non-Race Dependent 80- [facility] HospitalComment on above:Reported eGFR is based on the CKD-EPI 2020 equation that does not use a race coefficient. Glucose [Mass/Vol]253 mg/hFZywp95 - 99 mg/dLBrown Memorial Hospital Interpretation and review of laboratory resultsAbMontefiore New Rochelle Hospital Potassium [Moles/Vol]4.3 mmol/L3.5 - 5.0 mmol/[facility] SystemSodium [Moles/Vol]139 mmol/L134 - 146 mmol/[facility] SystemUrea nitrogen [Mass/Vol]15 mg/dL5 - 23 mg/dLWills Eye Hospital Bedside Glucose *Place/Obtain serum glucose if >500 per glucometer.on 12-04-2024 Glucose [Mass/Vol]348 mg/fPWjrt79 - 99 mg/dLBrown Memorial Hospital Interpretation and review of laboratory resultsAbBellin Health's Bellin Psychiatric CenterGlucose [Mass/Vol]200 mg/zOZdag53 - 99 mg/dLBrown Memorial HospitalInterpretation and review of laboratory resultsAbnoCrichton Rehabilitation CenterGlucose [Mass/Vol]348 mg/cDHmjk54 - 99 mg/dL [facility] HospitalInterpretation and review of laboratory resultsAbnormal [facility]ills [facility] HospitalGlucose [Mass/Vol]251 mg/gSDizp08 - 99 mg/dLBrown Memorial HospitalInterpretation and review of laboratory results AbnormalWills Eye HospitalGlucose [Mass/Vol]257 mg/uYUzuv26 - 99 mg/dLBrown Memorial HospitalInterpretation and review of laboratory resultsAbnoCrichton Rehabilitation CenterGlucose [Mass/Vol]262 mg/zWGqwg30 - 99 mg/dLBrown Memorial HospitalInterpretation and review of laboratory resultsAbJefferson Health NortheastCBC WITH AUTO DIFFERENTIALon 84-25-6483XVRSVAVJF ABSOLUTE COUNT (10*3/UL) BY AUTOMATED COUNT0.1 10*3/uLNormal0.0-0.2ProMedica Mcintyre HospitalComment on above:Performed By: #### BEDG #### [facility] ([facility]) [address] [place] [address] VIRBASOPHILS RELATIVE PERCENT BY AUTOMATED COUNT1.1 %Normal [facility] HospitalComment on above:Performed By: #### BEDG #### [facility] ([facility]) [address] [place] [address] VIRCELLAVISION DIFFERENTIAL TYPEAUTOMATED DIFFERENTIALNormal [facility] HospitalComment on above:Performed By: #### BEDG #### [facility] ([facility]) [address] [place] [address] VIREosinophils (Bld) [#/Vol]0.2 10*3/uLNormal0.0-0.4ProTrihealth Good Samaritan Hospitalca Mcintyre HospitalComment on above:Performed By: #### BEDG #### [facility] ([facility]) [address] [place] [address] VIREOSINOPHILS RELATIVE PERCENT BY AUTOMATED COUNT3.0 %Normal [facility] HospitalComment on above:Performed By: #### BEDG #### [facility] ([facility]) [address] [place] [address] VIRErythrocyte distribution width (RBC) [Ratio]13.5 %Normal 11.5-15ProMercy Health Kings Mills Hospital HospitalComment on above:Performed By: #### BEDG #### [facility] ([facility]) [address] [place] [address] VIRHematocrit (Bld) [Volume fraction]32.7 %Ptd99-44FutWscyax [place] HospitalComment on above:Performed By: #### BEDG #### [facility] ([facility]) [address] [place] [address] VIRHemoglobin (Bld) [Mass/Vol]11.2 g/dLLow11.7-15.5PSt. [facility] Hospital HospitalComment on above:Performed By: #### BEDG #### [facility] ([facility]) [address] [place] [address] VIRLYMPHOCYTES ABSOLUTE COUNT (10*3/UL) BY AUTOMATED COUNT2.0 10*3/uLNormal1.0-3.5PSt. Charles Hospital HospitalComment on above:Performed By: #### BEDG #### [facility] ([facility]) [address] [place] [address] VIRLYMPHOCYTES RELATIVE PERCENT BY AUTOMATED COUNT38.3 %Normal ProMCleveland Clinic [facility] HospitalComment on above:Performed By: #### BEDG #### [facility] ([facility]) [address] [place] [address] VIRMCH (RBC) [Entitic mass]30.4 yeFedocq16-06SbvPbqobu [place] HospitalComment on above:Performed By: #### BEDG #### [facility] ([facility]) [address] [place] [place] [address] VIRMCHC (RBC) [Mass/Vol]34.1 g/dNKdjjui54-14JhsTxrwpg [place] HospitalComment on above:Performed By: #### BEDG #### [facility] ([facility]) [address] [place] [address] VIRMCV (RBC) [Entitic vol]89 yQNdflde55-635UzhKsshid [place] HospitalComment on above:Performed By: #### BEDG #### [facility] ([facility]) [address] [place] [address] VIRMONOCYTES ABSOLUTE COUNT (10*3/UL) BY AUTOMATED COUNT0.3 10*3/uLNormal0.0-0.9ProTrihealth Good Samaritan Hospitalca Mcintyre HospitalComment on above:Performed By: #### BEDG #### [facility] ([facility]) [address] [place] [address] VIRMONOCYTES RELATIVE PERCENT BY AUTOMATED COUNT4.8 %Normal [facility] HospitalComment on above:Performed By: #### BEDG #### [facility] ([facility]) [address] [place] [place] [address] VIRNEUTROPHILS ABSOLUTE COUNT BY AUTOMATED COUNT2.8 10*3/uL Normal1.5-6.6ProTrihealth Good Samaritan Hospitalca Mcintyre HospitalComment on above:Performed By: #### BEDG #### [facility] ([facility]) [address] [place] [address] VIRNEUTROPHILS RELATIVE PERCENT BY AUTOMATED COUNT52.8 %Normal [facility] HospitalComment on above:Performed By: #### BEDG #### [facility] ([facility]) [address] [place] [address] VIRPlatelet mean volume (Bld) [Entitic vol]7.5 fLNormal7-12 [facility] HospitalComment on above:Performed By: #### BEDG #### [facility] ([facility]) [address] [place] [address] VIRPlatelets (Bld) [#/Vol]235 10*3/jMWrtuvo454-211DoaFqvstv [place] HospitalComment on above:Performed By: #### BEDG #### [facility] ([facility]) [address] [place] [address] VIRRBC COUNT3.67 X10E12/LLow3.8-5.2PShriners Hospitalica [facility] Comment on above:Performed By: #### BEDG #### [facility] ([facility]) [address] [place] [place] [address] VIRWBC (Bld) [#/Vol]5.3 10*3/uLNormal4-11ProTrihealth Good Samaritan Hospitalca [facility]intyre HospitalComment on above:Performed By: #### BEDG #### [facility] ([facility]) [address] [place] [address] VIRCBC auto differentialon 30-54-8801Kezjnjwri (Bld) [#/Vol]0.1 10*3/uL0.0 - 0.2 10*3/uLBrown Memorial HospitalBasophils/100 WBC (Bld)1.1 % [facility] HospitalDifferential cell count method Nom (Bld)AUTOMATED DIFFERENTIALBrown Memorial HospitalEosinophils (Bld) [#/Vol]0.2 10*3/uL0.0 - 0.4 10*3/uLBrown Memorial HospitalEosinophils/100 WBC (Bld)3 %[facility] Memorial HospitalErythrocyte distribution width (RBC) [Ratio]13.5 %11.5 - 15 %[facility] Memorial HospitalHematocrit (Bld) [Volume fraction]32.7 %Low35 - 47 %[facility] Memorial HospitalHemoglobin (Bld) [Mass/Vol]11.2 g/dLLow11.7 - 15.5 g/dLBrown Memorial HospitalInterpretation and review of laboratory resultsAbnormalBrown Memorial HospitalLymphocytes (Bld) [#/Vol]2 10*3/uL1.0 - 3.5 10*3/uLBrown Memorial HospitalLymphocytes/100 WBC (Bld)38.3 %[facility] Memorial HospitalMCH (RBC) [Entitic mass]30.4 pg27 - 34 [facility] HospitalMCHC (RBC) [Mass/Vol]34.1 g/dL32 - 36 g/dLBrown Memorial HospitalMCV (RBC) [Entitic vol]89 fL80 - 100 [facility] HospitalMonocytes (Bld) [#/Vol]0.3 10*3/uL0.0 - 0.9 10*3/uLBrown Memorial HospitalMonocytes/100 WBC (Bld)4.8 %[facility] Memorial HospitalNeutrophils (Bld) [#/Vol]2.8 10*3/uL1.5 - 6.6 10*3/uLBrown Memorial HospitalNeutrophils/100 WBC (Bld)52.8 %[facility] Memorial HospitalPlatelet mean volume (Bld) [Entitic vol]7.5 fL 7 - 12 [facility] HospitalPlatelets (Bld) [#/Vol]235 10*3/uLProSumma Health Barberton Campus SystemRBC (Bld) [#/Vol]3.67 10*6/LowBrown Memorial HospitalWBC LM Ql (Sput)5.3PLE[facility] Mill[facility] Community HospitalElectrolyte panelon 43-14-5983Isriq gap [Moles/Vol]6 mmol/L5 - 15 mmol/LPrSt. Anthony Hospital Health System Chloride [Moles/Vol]110 mmol/LHigh98 - 109 mmol/LProMedlake martin community hospital Health SystemCO2 [Moles/Vol]20 mmol/LLow22 - 32 mmol/LProMedlake martin community hospital Health SystemInterpretation and review of laboratory resultsAbnoCone Health Wesley Long HospitalPotassium [Moles/Vol] 4.4 mmol/L3.5 - 5.0 mmol/LProMedlake martin community hospital Health SystemSodium [Moles/Vol]136 mmol/L134 - 146 mmol/LPrAgnesian HealthCare SystemAPTTon 81-33-9853tZPP Coag (PPP) [Time]25 sLowBrown Memorial HospitalInterpretation and review of laboratory resultsAbnoCrichton Rehabilitation CenteraPTT Coag (Bld) [Time]25 bLzm17-87WcdFaizur [place] HospitalComment on above:Performed By: #### CMP #### [facility] ([facility]) [address] [place] [address] VIRBEDSIDE GLUCOSEon 89-98-3175Vuhdvnb [Mass/Vol]257 mg/dLHigh 65-99ProMercy Health Kings Mills Hospital HospitalComment on above:Performed By: #### BEDG #### [facility] ([facility]) [address] [place] [address] VIRGlucose [Mass/Vol]238 mg/aKJcnt52-31IylGlaqyv [place] HospitalComment on above:Performed By: #### BEDG #### [facility] ([facility]) [address] [place] [address] VIRGlucose [Mass/Vol]114 mg/aVWrvh27-37ZikXdcwcf [place] HospitalComment on above:Performed By: #### BEDG #### [facility] ([facility]) [address] [facility] [place] [address] VIRGlucose [Mass/Vol]237 mg/mFSgrb39-69IflXxkqnc [facility] HospitalComment on above:Performed By: #### CMP #### [facility] ([facility]) [address] [place] [address] VIRGlucose [Mass/Vol]269 mg/tDInax08-24IlvUereqx [facility] HospitalComment on above:Performed By: #### CMP #### [facility] ([facility]) [address] [place] [address] VIRGlucose [Mass/Vol]281 mg/eUFlzm39-76JprHyxsts [facility] HospitalComment on above:Performed By: #### CMP #### [facility] ([facility]) [address] [place] [address] VIRGlucose [Mass/Vol]301 mg/qMRzso06-78EziLipeon [facility] HospitalComment on above:Performed By: #### CMP #### [facility] ([facility]) [address] [place] [address] VIRGlucose [Mass/Vol]287 mg/fHEber60-00QolMcthvz [facility] HospitalComment on above:Performed By: #### CMP #### [facility] ([facility]) [address] [place] [address] VIRGlucose [Mass/Vol]344 mg/sAElha65-26GlnBdsmuq [facility] HospitalComment on above:Performed By: #### CMP #### [facility] ([facility]) [address] [place] [address] VIRGlucose [Mass/Vol]318 mg/rWClmb41-74XfvMaxprs [facility] HospitalComment on above:Performed By: #### BEDG #### [facility] ([facility]) [address] [place] [address] VIRGlucose [Mass/Vol]409 mg/dLCritically [id number] [facility] HospitalComment on above:Performed By: #### BEDG #### [facility] ([facility]) [address] [place] [address] VIRBEDSIDE GLUCOSE BEDG>^500Critically citd06-81IplDxtuarMorrow County HospitalComment on above:Performed By: #### BEDG #### [facility] ([facility]) [address] [place] [address] VIRBEDSIDE GLUCOSE BEDG>^500Critically jxyu51-89JuwKdefkaCleveland Clinic South Pointe HospitalComment on above:Performed By: #### BEDG #### [facility] ([facility]) [address] [place] [address] VIRBedside Glucose *Place/Obtain serum glucose if >500 per glucometer.on [id number] [Mass/Vol]238 mg/uOLazk85 - 99 mg/dLBrown Memorial HospitalInterpretation and review of laboratory resultsAbnoCrichton Rehabilitation CenterGlucose [Mass/Vol]114 mg/eFMlgl16 - 99 mg/dL [facility] HospitalInterpretation and review of laboratory resultsAbnormal [facility] HospitalGlucose [Mass/Vol]269 mg/sJUcqi41 - 99 mg/dLBrown Memorial HospitalGlucose [Mass/Vol]237 mg/sBLpyq74 - 99 mg/dL [facility] HospitalGlucose [Mass/Vol]281 mg/kBHxgm90 - 99 mg/dLBrown Memorial HospitalInterpretation and review of laboratory resultsAbnormalWills Eye HospitalGlucose [Mass/Vol]301 mg/eQZeef04 - 99 mg/dL [facility] HospitalInterpretation and review of laboratory resultsAbnormal [facility] HospitalGlucose [Mass/Vol]287 mg/eNTxpy76 - 99 mg/dLBrown Memorial HospitalInterpretation and review of laboratory results AbnormalWills Eye HospitalGlucose [Mass/Vol]344 mg/aOZikm36 - 99 mg/dLBrown Memorial HospitalInterpretation and review of laboratory resultsAbnormAurora Medical Center SystemGlucose [Mass/Vol]318 mg/rDZcuy78 - 99 mg/dLUniversity Hospitals Ahuja [facility] SystemInterpretation and review of laboratory resultsAbnormalProHospital Sisters Health System [facility] SystemGlucose [Mass/Vol]409 mg/dLCritically high65 - 99 mg/dLProSumma Health [facility] SystemInterpretation and review of laboratory resultsAbnormAurora Medical Center SystemGlucose [Mass/Vol]mg/dLCritically high65 - 99 mg/dL [facility] SystemInterpretation and review of laboratory resultsAbnormal [facility] SystemGlucose [Mass/Vol]mg/dLCritically high65 - 99 mg/dLUniversity Hospitals Ahuja Medical Center SystemInterpretation and review of laboratory resultsAbnoCrichton Rehabilitation CenterCB WITH AUTO DIFFERENTIALon [id number] ABSOLUTE COUNT (10*3/UL) BY AUTOMATED COUNT 0.1 10*3/uLNormal0.0-0.2PProMedica Fostoria Community HospitalComment on above:Performed By: #### CBCA #### [facility] ([facility]) [address] [place] [address] VIRBASOPHILS RELATIVE PERCENT BY AUTOMATED COUNT1.5 %Normal [facility] HospitalComment on above:Performed By: #### CBCA #### [facility] ([facility]) [address] [place] [address] VIRCELLAVISION DIFFERENTIAL TYPEAUTOMATED DIFFERENTIALNormal [facility] HospitalComment on above:Performed By: #### CBCA #### [facility] ([facility]) [address] [place] [address] VIREosinophils (Bld) [#/Vol]0.2 10*3/uLNormal0.0-0.4[facility] HospitalComment on above:Performed By: #### CBCA #### [facility] ([facility]) [address] [place] [address] VIREOSINOPHILS RELATIVE PERCENT BY AUTOMATED COUNT2.3 %Normal [facility] Mcintyre HospitalComment on above:Performed By: #### CBCA #### [facility] ([facility]) [address] [place] [address] VIRErythrocyte distribution width (RBC) [Ratio]13.5 %Normal 11.5-15ProMedica Mcintyre HospitalComment on above:Performed By: #### CBCA #### [facility] ([facility]) [address] [place] [address] VIRHematocrit (Bld) [Volume fraction]34.1 %Uuk92-94JjpRorqvd Mcintyre HospitalComment on above:Performed By: #### CBCA #### [facility] ([facility]) [address] [place] [address] VIRHemoglobin (Bld) [Mass/Vol]11.7 g/uWEtmpbo60.7-15.5ProMedica Mcintyre HospitalComment on above:Performed By: #### CBCA #### [facility] ([facility]) [address] [place] [address] VIRLYMPHOCYTES ABSOLUTE COUNT (10*3/UL) BY AUTOMATED COUNT2.6 10*3/uLNormal1.0-3.5ProMedMemorial Health System [facility] HospitalComment on above:Performed By: #### CBCA #### [facility] ([facility]) [address] [place] [address] VIRLYMPHOCYTES RELATIVE PERCENT BY AUTOMATED COUNT33.5 %Normal ProMCleveland [facility] HospitalComment on above:Performed By: #### CBCA #### [facility] ([facility]) [address] [place] [address] VIRMCH (RBC) [Entitic mass]30.7 fyKftqrn34-94TemZxdmdg Mcintyre HospitalComment on above:Performed By: #### CBCA #### [facility] ([facility]) [address] [place] [address] VIRMCHC (RBC) [Mass/Vol]34.3 g/fOZocswa53-57FdjSvxdas [place] HospitalComment on above:Performed By: #### CBCA #### [facility] ([facility]) [address] [place] [address] VIRMCV (RBC) [Entitic vol]89 iIKtwjgv17-229TkqOnfuuv [place] HospitalComment on above:Performed By: #### CBCA #### [facility] ([facility]) [address] [place] [address] VIRMONOCYTES ABSOLUTE COUNT (10*3/UL) BY AUTOMATED COUNT0.5 10*3/uLNormal0.0-0.9ProCleveland Clinic South Pointe HospitalComment on above:Performed By: #### CBCA #### [facility] ([facility]) [address] [place] [address] VIRMONOCYTES RELATIVE PERCENT BY AUTOMATED COUNT6.3 %Normal ProMCleveland Clinic [facility] HospitalComment on above:Performed By: #### CBCA #### [facility] ([facility]) [address] [place] [address] VIRNEUTROPHILS ABSOLUTE COUNT BY AUTOMATED COUNT4.4 10*3/uL Normal1.5-6.6ProMercy Health Kings [facility] Hospital HospitalComment on above:Performed By: #### CBCA #### [facility] ([facility]) [address] [place] [address] VIRNEUTROPHILS RELATIVE PERCENT BY AUTOMATED COUNT56.4 %Normal [facility] HospitalComment on above:Performed By: #### CBCA #### [facility] ([facility]) [address] [place] [address] VIRPlatelet mean volume (Bld) [Entitic vol]7.5 fLNormal7-12 ProMCleveland Clinic [facility] HospitalComment on above:Performed By: #### CBCA #### [facility] ([facility]) [address] [place] [address] VIRPlatelets (Bld) [#/Vol]244 10*3/fJDzsaca056-816KozMaorbk [facility]intyre HospitalComment on above:Performed By: #### CBCA #### [facility] ([facility]) [address] [place] [address] VIRRBC COUNT3.81 X10E12/LNormal3.8-5.2PSt. [facility] Hospital Comment on above:Performed By: #### CBCA #### [facility] ([facility]) [address] [place] [address] VIRWBC (Bld) [#/Vol]7.7 10*3/uLNormal4-11ProMercy Health [facility] Hospital HospitalComment on above:Performed By: #### CBCA #### [facility] ([facility]) [address] [place] [address] VIRBASOPHILS ABSOLUTE COUNT (10*3/UL) BY AUTOMATED COUNT0.1 10*3/uLNormal0.0-0.2PProMedica Fostoria Community HospitalComment on above:Performed By: #### CBCA #### [facility] ([facility]) [address] [place] [address] VIRBASOPHILS RELATIVE PERCENT BY AUTOMATED COUNT1.0 %Normal [facility] HospitalComment on above:Performed By: #### CBCA #### [facility] ([facility]) [address] [place] [address] VIRCELLAVISION DIFFERENTIAL TYPEAUTOMATED DIFFERENTIALNormal ProMCleveland [facility] HospitalComment on above:Performed By: #### CBCA #### [facility] ([facility]) [address] [place] [address] VIREosinophils (Bld) [#/Vol]0.1 10*3/uLNormal0.0-0.4ProMercy Health Kings [facility] Hospital HospitalComment on above:Performed By: #### CBCA #### [facility] ([facility]) [address] [place] [address] VIREOSINOPHILS RELATIVE PERCENT BY AUTOMATED COUNT2.1 %Normal [facility]MC[facility] HospitalComment on above:Performed By: #### CBCA #### [facility] ([facility]) [address] [place] [address] VIRErythrocyte distribution width (RBC) [Ratio]13.5 %Normal 11.5-15ProMercy Health Kings [facility] Hospital HospitalComment on above:Performed By: #### CBCA #### [facility] ([facility]) [address] [place] [address] VIRHematocrit (Bld) [Volume fraction]38.7 %Foofit97-61AulDrxyip [place] HospitalComment on above:Performed By: #### CBCA #### [facility] ([facility]) [address] [place] [address] VIRHemoglobin (Bld) [Mass/Vol]13.2 g/qHWkwddk07.7-15.5ProMedMemorial Health System [facility] HospitalComment on above:Performed By: #### CBCA #### [facility] ([facility]) [address] [place] [address] VIRLYMPHOCYTES ABSOLUTE COUNT (10*3/UL) BY AUTOMATED COUNT1.7 10*3/uLNormal1.0-3.5PSt. [facility] HospitalComment on above:Performed By: #### CBCA #### [facility] ([facility]) [address] [place] [address] VIRLYMPHOCYTES RELATIVE PERCENT BY AUTOMATED COUNT24.3 %Normal ProMCleveland [facility] HospitalComment on above:Performed By: #### CBCA #### [facility] ([facility]) [address] [place] [address] VIRMCH (RBC) [Entitic mass]31.0 txSyrjxm03-59RpaCqaosf [facility]re HospitalComment on above:Performed By: #### CBCA #### [facility] ([facility]) [address] [place] [address] VIRMCHC (RBC) [Mass/Vol]34.0 g/jAVgcysl44-34LehZwbhcf [facility]re HospitalComment on above:Performed By: #### CBCA #### [facility] ([facility]) [address] [place] [address] VIRMCV (RBC) [Entitic vol]91 lNIifztu26-906NsfClzjwk [facility] HospitalComment on above:Performed By: #### CBCA #### [facility] ([facility]) [address] [place] [address] VIRMONOCYTES ABSOLUTE COUNT (10*3/UL) BY AUTOMATED COUNT0.4 10*3/uLNormal0.0-0.9ProMedica [facility] HospitalComment on above:Performed By: #### CBCA #### [facility] ([facility]) [address] [place] [address] VIRMONOCYTES RELATIVE PERCENT BY AUTOMATED COUNT6.1 %Normal [facility] HospitalComment on above:Performed By: #### CBCA #### [facility] ([facility]) [address] [place] [address] VIRNEUTROPHILS ABSOLUTE COUNT BY AUTOMATED COUNT4.7 10*3/uL Normal1.5-6.6ProTrihealth Good Samaritan Hospitalca [facility] HospitalComment on above:Performed By: #### CBCA #### [facility] ([facility]) [address] [place] [address] VIRNEUTROPHILS RELATIVE PERCENT BY AUTOMATED COUNT66.5 %Normal [facility] HospitalComment on above:Performed By: #### CBCA #### [facility] ([facility]) [address] [place] [address] VIRPlatelet mean volume (Bld) [Entitic vol]8.2 fLNormal7-12 [facility] HospitalComment on above:Performed By: #### CBCA #### [facility] ([facility]) [address] [place] [address] VIRPlatelets (Bld) [#/Vol]234 10*3/qSKohlnp774-187OekCsgqtp [place] HospitalComment on above:Performed By: #### CBCA #### [facility] ([facility]) [address] [place] [address] VIRRBC COUNT4.24 X10E12/LNormal3.8-5.2PShriners Hospitalica [facility] Comment on above:Performed By: #### CBCA #### [facility] ([facility]) [address] [place] [address] VIRWBC (Bld) [#/Vol]7.1 10*3/uLNormal4-11ProCleveland Clinic South Pointe HospitalComment on above:Performed By: #### CBCA #### [facility] ([facility]) [address] [place] [address] VIRCBC auto differentialon [id number] (Bld) [#/Vol]0.1 10*3/uL0.0 - 0.2 10*3/uLProSumma Health [facility] Campus SystemBasophils/100 WBC (Bld)1.5 % [facility] HospitalDifferential cell count method Nom (Bld)AUTOMATED DIFFERENTIALBrown Memorial HospitalEosinophils (Bld) [#/Vol]0.2 10*3/uL0.0 - 0.4 10*3/uLBrown Memorial HospitalEosinophils/100 WBC (Bld)2.3 %[facility] Memorial HospitalErythrocyte distribution width (RBC) [Ratio]13.5 %11.5 - 15 %[facility] SystemHematocrit (Bld) [Volume fraction]34.1 %Low35 - 47 %[facility] SystemHemoglobin (Bld) [Mass/Vol]11.7 g/dL11.7 - 15.5 g/dLBrown Memorial HospitalInterpretation and review of laboratory resultsAbnormalBrown Memorial HospitalLymphocytes (Bld) [#/Vol]2.6 10*3/uL1.0 - 3.5 10*3/[facility] HospitalLymphocytes/100 WBC (Bld)33.5 %[facility] HospitalMCH (RBC) [Entitic mass]30.7 pg27 - 34 [facility] HospitalMCHC (RBC) [Mass/Vol]34.3 g/dL32 - 36 g/dLBrown Memorial HospitalMCV (RBC) [Entitic vol]89 fL80 - 100 fL [facility] HospitalMonocytes (Bld) [#/Vol]0.5 10*3/uL0.0 - 0.9 10*3/uL [facility] HospitalMonocytes/100 WBC (Bld)6.3 %[facility] Neutrophils (Bld) [#/Vol]4.4 10*3/uL1.5 - 6.6 10*3/[facility] Neutrophils/100 WBC (Bld)56.4 %[facility] Memorial HospitalPlatelet mean volume (Bld) [Entitic vol]7.5 fL7 - 12 [facility] HospitalPlatelets (Bld) [#/Vol]244 10*3/[facility] HospitalRBC (Bld) [#/Vol]3.81 10*6/[facility] HospitalWBC LM Ql (Sput)7.7[facility] HospitalBasophils (Bld) [#/Vol]0.1 10*3/uL0.0 - 0.2 10*3/[facility] HospitalBasophils/100 WBC (Bld)1 %[facility] HospitalDifferential cell count method Nom (Bld) AUTOMATED DIFFERENTIALBrown Memorial HospitalEosinophils (Bld) [#/Vol]0.1 10*3/uL0.0 - 0.4 10*3/[facility] HospitalEosinophils/100 WBC (Bld)2.1 % [facility] HospitalErythrocyte distribution width (RBC) [Ratio]13.5 %11.5 - 15 %[facility] HospitalHematocrit (Bld) [Volume fraction]38.7 %35 - 47 % [facility] HospitalHemoglobin (Bld) [Mass/Vol]13.2 g/dL11.7 - 15.5 g/dL [facility] HospitalLymphocytes (Bld) [#/Vol]1.7 10*3/uL1.0 - 3.5 10*3/uL [facility] HospitalLymphocytes/100 WBC (Bld)24.3 %[facility]orial Health SystemH (RBC) [Entitic mass]31 pg27 - 34 [facility] HospitalMCHC (RBC) [Mass/Vol] 34 g/dL32 - 36 g/dLBrown Memorial HospitalMCV (RBC) [Entitic vol]91 fL80 - 100 [facility] HospitalMonocytes (Bld) [#/Vol]0.4 10*3/uL0.0 - 0.9 10*3/uL [facility] HospitalMonocytes/100 WBC (Bld)6.1 %[facility] Neutrophils (Bld) [#/Vol]4.7 10*3/uL1.5 - 6.6 10*3/uLBrown Memorial Hospital Neutrophils/100 WBC (Bld)66.5 %[facility] HospitalPlatelet mean volume (Bld) [Entitic vol]8.2 fL7 - 12 [facility] HospitalPlatelets (Bld) [#/Vol]234 10*3/uLBrown Memorial HospitalRBC (Bld) [#/Vol]4.24 10*6/[facility] HospitalWBC LM Ql (Sput)7.1[facility] COMPREHENSIVE METABOLIC PANELon [id number] [Mass/Vol]3.4 g/dLNormal 3.2-5.3PProMedica Fostoria Community HospitalComment on above:Performed By: #### CMP #### [facility] ([facility]) [address] [place] [address] VIRALP [Catalytic activity/Vol]104 U/NJnaaod29-724DomVfmnigMorrow County HospitalComment on above:Performed By: #### CMP #### [facility] ([facility]) [address] [place] [address] VIRALT [Catalytic activity/Vol]10 U/LNormal<=31ProMedica Carias HospitalComment on above:Performed By: #### CMP #### [facility] ([facility]) [address] [place] [address] VIRAnion gap [Moles/Vol]11 mmol/LNormal5-15Pro[facility] HospitalComment on above:Performed By: #### CMP #### [facility] ([facility]) [address] [place] [address] VIRAST [Catalytic activity/Vol]11 U/LNormal<=41Pro[facility]ica [facility] HospitalComment on above:Performed By: #### CMP #### [facility] ([facility]) [address] [place] [address] VIRBilirubin [Mass/Vol]0.4 mg/dLNormal0.3-1.2ProMedMemorial Health System Marietta [facility] Hospital HospitalComment on above:Performed By: #### CMP #### [facility] ([facility]) [address] [place] [address] VIRCalcium [Mass/Vol]8.1 mg/dLLow8.5-10.5PSt. [facility] HospitalComment on above:Performed By: #### CMP #### [facility] ([facility]) [address] [place] [address] VIRChloride [Moles/Vol]101 mmol/JBxxdnj37-322FshNccemv [place] HospitalComment on above:Performed By: #### CMP #### [facility] ([facility]) [address] [place] [address] VIRCO2 [Moles/Vol]21 mmol/AVrm88-97OuoAizytn [place] [facility] Comment on above:Performed By: #### CMP #### [facility] ([facility]) [address] [place] [address] VIRCreatinine [Mass/Vol]1.40 mg/dLHigh0.40-1.00ProMercy Health [facility] HospitalComment on above:Result Comment: METHOD TRACEABLE TO IDMS STANDARD Performed By: #### CMP #### [facility] ([facility]) [address] [place] [address] VIRGFR/1.73 sq M.predicted among non-blacks MDRD (S/P/Bld) [Vol rate/Area]47 mL/min/{1.73_m2}Low>=60ProMedica Carias HospitalComment on above: Result Comment: Reported eGFR is based on the CKD-EPI 2020 equation that does not use a race coefficient.Performed By: #### CMP #### [facility] ([facility]) [address] [place] [address] VIRGlucose [Mass/Vol]640 mg/dLCritically iloy29-07KceBhryxm [facility] HospitalComment on above:Performed By: #### CMP #### [facility] ([facility]) [address] [place] [address] VIRPotassium [Moles/Vol]4.3 mmol/LNormal3.5-5.0ProMedica [facility] HospitalComment on above:Performed By: #### CMP #### [facility] ([facility]) [address] [place] [address] VIRProtein [Mass/Vol]6.0 g/dLNormal6.0-8.0ProTrihealth Good Samaritan Hospitalca [place] HospitalComment on above:Performed By: #### CMP #### [facility] ([facility]) [address] [place] [address] VIRSodium [Moles/Vol]133 mmol/PDgi992-898KquYumhqy [facility] HospitalComment on above:Performed By: #### CMP #### [facility] ([facility]) [address] [place] [address] VIRUrea nitrogen [Mass/Vol]21 mg/dLNormal5-23ProMedica [facility] HospitalComment on above:Performed By: #### CMP #### [facility] ([facility]) [address] [place] [address] VIRComprehensive metabolic panelOrdered By: Etelvina Richards on 05-07-4077Kflcsph [Mass/Vol]3.4 g/dL3.2 - 5.3 g/dLProGrove Hill Memorial Hospital Health SystemALP [Catalytic activity/Vol]104 U/L39 - 130 U/LProMedica Health SystemALT No additional P-5'-P [Catalytic activity/Vol]10 U/LNINF - 31 U/LProMedica Health SystemAnion gap [Moles/Vol]11 mmol/L5 - 15 mmol/LProMedica Health SystemAST [Catalytic activity/Vol]11 U/LNINF - 41 U/LProMedica Health SystemBilirubin [Mass/Vol]0.4 mg/dL0.3 - 1.2 mg/dLProSumma Health [facility] SystemCalcium [Mass/Vol]8.1 mg/dLLow8.5 - 10.5 mg/dLProSumma Health [facility] SystemChloride [Moles/Vol]101 mmol/L98 - 109 mmol/LProMedica Health SystemCO2 [Moles/Vol]21 mmol/LLow22 - 32 mmol/L [facility] HospitalCreatinine [Mass/Vol]1.4 mg/dLHigh0.40 - 1.00 mg/dL [facility] HospitalComment on above:METHOD TRACEABLE TO IDPA STANDARDEGFR Non-Race Jzxpljxux95Dxk- PINDayton Osteopathic Hospital SystemComment on above:Reported eGFR is based on the CKD-EPI 2020 equation that does not use a race coefficient. Glucose [Mass/Vol]640 mg/dLCritically high65 - 99 mg/dLUniversity [facility] System Interpretation and review of laboratory resultsAbnormalProSumma Health [facility] System Potassium [Moles/Vol]4.3 mmol/L3.5 - 5.0 mmol/LProMedica Health SystemProtein [Mass/Vol]6 g/dL6.0 - 8.0 g/dLCommunity Regional Medical Center Health SystemSodium [Moles/Vol]133 mmol/ADrb726 - 146 mmol/LPrParkland Health Centerica Health SystemUrea nitrogen [Mass/Vol]21 mg/dL 5 - 23 mg/dLUniversity Hospitals Ahuja [facility] SystemProSumma Health [facility] Campus SystemELECTROLYTE PANELon [id number] gap [Moles/Vol]6 mmol/LNormal5-15ProGrove Hill [facility] Hospital [facility] Comment on above:Performed By: #### BEDG #### [facility] ([facility]) [address] [place] [address] VIRChloride [Moles/Vol]110 mmol/TNiae89-197HizJqhmyu Carias HospitalComment on above:Performed By: #### BEDG #### [facility] ([facility]) [address] [place] [address] VIRCO2 [Moles/Vol]20 mmol/KKst86-89VvxCczaqn [facility] Comment on above:Performed By: #### BEDG #### [facility] ([facility]) [address] [place] [address] VIRPotassium [Moles/Vol]4.4 mmol/LNormal3.5-5.0ProMedica Mcintyre HospitalComment on above:Performed By: #### BEDG #### [facility] ([facility]) [address] [place] [address] VIRSodium [Moles/Vol]136 mmol/TSelmnw219-326CpuXjtuwa Mcintyre HospitalComment on above:Performed By: #### BEDG #### [facility] ([facility]) [address] [place] [address] VIRELECTROLYTE PANELELEC ELECTROLYTE PANEL CancelledNormal [facility] Ment[facility] HospitalComment on above:Order Comment: See [id number] gap [Moles/Vol]7 mmol/LNormal5-15ProMedica Carias HospitalComment on above: Performed By: #### BEDG #### [facility] ([facility]) [address] [place] [address] VIRChloride [Moles/Vol]109 mmol/CFcjhnz13-628SnoAfpqfm Mcintyre HospitalComment on above:Performed By: #### BEDG #### [facility] ([facility]) [address] [place] [address] VIRCO2 [Moles/Vol]21 mmol/YGvw49-64YslNzarzk [facility] Comment on above:Performed By: #### BEDG #### [facility] ([facility]) [address] [facility] [address] VIRPotassium [Moles/Vol]4.4 mmol/LNormal3.5-5.0ProMedica Carias HospitalComment on above:Performed By: #### BEDG #### [facility] ([facility]) [address] [place] [address] VIRSodium [Moles/Vol]137 mmol/DDmdhdu584-144OdiSgvxfc Carias HospitalComment on above:Performed By: #### BEDG #### [facility] ([facility]) [address] [place] [address] VIRAnion gap [Moles/Vol]8 mmol/LNormal5-15ProMedica Carias HospitalComment on above:Performed By: #### CMP #### [facility] ([facility]) [address] [place] [address] VIRChloride [Moles/Vol]107 mmol/XUilosf77-105UnpKsnkeo Carias HospitalComment on above:Performed By: #### CMP #### [facility] ([facility]) [address] [place] [address] VIRCO2 [Moles/Vol]23 mmol/DPchqae77-75MfsZtsffy [facility] Comment on above:Performed By: #### CMP #### [facility] ([facility]) [address] [place] [address] VIRPotassium [Moles/Vol]4.2 mmol/LNormal3.5-5.0ProMedica Carias HospitalComment on above:Performed By: #### CMP #### [facility] ([facility]) [address] [place] [address] VIRSodium [Moles/Vol]138 mmol/AVkoucs201-831ClnTjuxug Carias HospitalComment on above:Performed By: #### CMP #### [facility] ([facility]) [address] [place] [address] VIRAnion gap [Moles/Vol]7 mmol/LNormal5-15ProMedica Carias HospitalComment on above:Performed By: #### CMP #### [facility] ([facility]) [address] [place] [address] VIRChloride [Moles/Vol]106 mmol/LMedkfr96-736PzkPksmkm Carias HospitalComment on above:Performed By: #### CMP #### [facility] ([facility]) [address] [place] [address] VIRCO2 [Moles/Vol]24 mmol/RRxjgdm93-98ThsXasgau [facility] Comment on above:Performed By: #### CMP #### [facility] ([facility]) [address] [place] [address] VIRPotassium [Moles/Vol]4.2 mmol/LNormal3.5-5.0ProMedica Carias HospitalComment on above:Performed By: #### CMP #### [facility] ([facility]) [address] [place] [address] VIRSodium [Moles/Vol]137 mmol/JTelgew927-137MhmUdmxpe Carias HospitalComment on above:Performed By: #### CMP #### [facility] ([facility]) [address] [place] [address] VIRAnion gap [Moles/Vol]11 mmol/LNormal5-15ProMedica Carias HospitalComment on above:Performed By: #### CMP #### [facility] ([facility]) [address] [place] [address] VIRChloride [Moles/Vol]105 mmol/MWzxflf05-408YqeUyrerz Carias HospitalComment on above:Performed By: #### CMP #### [facility] ([facility]) [address] [place] [address] VIRCO2 [Moles/Vol]21 mmol/UXey93-69EwrTvgzsrProMedica [facility] Comment on above:Performed By: #### CMP #### [facility] ([facility]) [address] [place] [address] VIRPotassium [Moles/Vol]3.8 mmol/LNormal3.5-5.0ProCleveland Clinic South Pointe HospitalComment on above:Performed By: #### CMP #### [facility] ([facility]) [address] [place] [address] VIRSodium [Moles/Vol]137 mmol/HWzomue743-614RdaQqvowr [place] HospitalComment on above:Performed By: #### CMP #### [facility] ([facility]) [address] [place] [address] VIRELECTROLYTE PANELELEC ELECTROLYTE PANEL CancelledNoal [facility] HospitalElectrolyte panelon 22-11-1913Hhbcp gap [Moles/Vol]7 mmol/L5 - 15 mmol/LProMedica Health [...] Health System Interpretation and review of laboratory resultsNormalCommunity [facility] Potassium [Moles/Vol]4.2 [...] mmol/LProMedica Health SystemInterpretation and review of laboratory resultsAbnormalProTrihealth Good Samaritan Hospitalca Health SystemPotassium [Moles/Vol]3.8 mmol/L3.5 - 5.0 mmol/LProMedica Health SystemSodium [Moles/Vol]137 mmol/L134 - 146 mmol/LProMedica Health System ProMedica Health SystemHEMOGLOBIN A1Con 93-03-2442Msfqnve [Mass/Vol]344 mg/dL NormalProCleveland Clinic South Pointe HospitalComment on above:Performed By: #### [id number] #### [facility] ([facility]) [address] [place] [address] CUICcN5e (Bld) [Mass fraction]13.6 %High4.4-5.6ProCleveland Clinic South Pointe HospitalComment on above:Result Comment: ADA Guidelines Result HgbA1c Normal : less than 5.7 % Prediabetes : 5.7 % to 6.4 % Diabetes : > 6.4 % Use with caution in patients with abnormal hemoglobin variants as the half-life of red blood cells and in vivo glycation rates are affected.Performed By: #### HA1C #### [facility] ([facility]) [address] [place] [address] VIRHemoglobin A1con 81-87-5836Ynbxzza glucose Estimated from glycated hemoglobin (Bld) [Mass/Vol]344 mg/dLBrown Memorial HospitalHbA1c (Bld) [Mass fraction]13.6 %High4.4 - 5.6 %Brown Memorial HospitalComment on above:ADA Guidelines Result HgbA1c Normal : less than 5.7 % Prediabetes : 5.7 % to 6.4 % Diabetes : > 6.4 % Use with caution in patients with abnormal hemoglobin variants as the half-life of red blood cells and in vivo glycation rates are affected. Interpretation and review of laboratory resultsAbnoAscension Columbia Saint Mary's HospitalNo Panel Informationon 66-43-5792Oxuelmhwjduesn and review of laboratory resultsAbnoWinnebago Mental Health Institute WITH REFLEXon 25-99-7727VZR1.02 uIU/mLNormal0.49-4.67M[facility] County HospitalComment on above:Performed By: #### TSHR #### [facility] ([facility]) [address] [place] [address] VIRT with Reflexon 78-00-5308Drlqxnshvcpfxt and review of laboratory resultsNoUNC Hospitals Hillsborough Campus Qn3.02 m[IU]/LProMedica Baptist Memorial Hospital30on 61-67-468612Cei patient is Moderately Stable - Low risk of patient condition declining or worsening The patient's goals for the shift include comfort The clinical goals for the shift include safetyNormalUniversity of Laredo Medical CenterBASIC METABOLIC PANELon 66-84-9426Njisu gap [Moles/Vol]9 mmol/L Normal7-20UnSt. Anthony's HospitalComment on above:Performed By: #### [id number] #### [facility] ([facility]) [address] [place], [place] [address]Ptpogii [Mass/Vol]8.4 mg/dLLow8.6-10.3UnSt. Anthony's HospitalComment on above:Performed By: #### [id number] #### [facility] ([facility]) [address] [place] [address]Uvkmqajf [Moles/Vol]109 mmol/JIjnk75-640IjwmqleqmoSt. Anthony's HospitalComment on above:Performed By: #### [id number] #### [facility] ([facility]) [address] [place] [address]YT7 [Moles/Vol]28 mmol/FQbmhic26-39KfeeryynpsSt. Anthony's HospitalComment on above:Performed By: #### [id number] #### [facility] ([facility]) [address] [place] [address]Ccevoyfwze [Mass/Vol]1.26 mg/dLHigh0.60-1.20UnSt. Anthony's HospitalComment on above:Performed By: #### [id number] #### [facility] ([facility]) [address] [place] [address]NEPFPBMOPZ FILTRATION RATE ML/MIN/1.73 SQ M.UZOTWPXDX15.0 mL/min/1.73m*2Low>60.0UnSt. Anthony's HospitalComment on above:Result Comment: The [facility]???s estimated glomerular filtration rate (eGFR) will [...] affect anyone group of individuals.Performed By: #### [id number] #### [facility] ([facility]) [address] [place] [address]Trjllyj [Mass/Vol]108 mg/aJWdkq59-552CnfiwhaeirSt. Anthony's HospitalComment on above:Performed By: #### [id number] #### [facility] ([facility]) [address] [place] [address]Syptdgvqs [Moles/Vol]4.1 mmol/LNormal3.5-5.1UnSt. Anthony's HospitalComment on above:Performed By: #### [id number] #### [facility] ([facility]) [address] [place] [address]Igfwni [Moles/Vol]142 mmol/LKdlkoe209-554RpbmlmcmwtSt. Anthony's HospitalComment on above:Performed By: #### [id number] #### [facility] ([facility]) [address] [place] [address]Zxar nitrogen [Mass/Vol]28 mg/dLHigh7-25UnSt. Anthony's HospitalComment on above:Performed By: #### [id number] #### [facility] ([facility]) [address] [place] [address]ICDP NITROGEN/CREATININE (MASS RATIO) IN SER/PLAS22.2Normal [facility] Regional HospitalComment on above:Performed By: #### [id number] #### [facility] ([facility]) [address] [place], [place] [address]FVU WITH AUTO DIFFERENTIALon 92-95-4752Ykqskmuij (Bld) [#/Vol] 0.06 10*3/uLNormal0.00-0.20UnSt. Anthony's HospitalComment on above: Performed By: #### [id number] ####[facility] ([facility])[address] [facility]ARIOPENN [facility] RE[facility]ATION HOSPITALBet[place], [place] [address]Zewkaclro/100 WBC (Bld)1.1 %High0.0-1.0UnSt. Anthony's HospitalComment on above:Performed By: #### [id number] ####[facility] ([facility])[address] [place], [place] [address]Jmgkousafzr (Bld) [#/Vol]0.19 10*3/uL Normal0.00-0.50UnSt. Anthony's HospitalComment on above:Performed By: #### [id number] ####[facility] ([facility])[address] [place] [address] Eosinophils/100 WBC (Bld)3.5 %Normal0.0-6.0UnSt. Anthony's Hospital Comment on above:Performed By: #### [id number] ####[facility] ([facility])[address] [place], [place] [address]Bthqlbcpjut distribution width (RBC) [Ratio]13.5 % Xcjlgw93.5-15.0UnSt. Anthony's HospitalComment on above:Performed By: #### [id number] ####[facility] ([facility])[address] [place] [address] ERYTHROCYTE MEAN CORPUSCULAR HEMOGLOBIN CONCENTRATION (G/DL) BY SJZUYUDQF56.4 g/qQUwaoyu36.0-35.0UnSt. Anthony's HospitalComment on above:Performed By: #### [id number] ####[facility] ([facility])[address] [place], [place] [address]Monthruhbf (Bld) [Volume fraction]31.5 %Low36.0-45.0UnSt. Anthony's HospitalComment on above:Performed By: #### [id number] ####[facility] ([facility])[address] [place], [place] [address]Kdvuuighhd (Bld) [Mass/Vol]10.2 g/dL Low12.0-15.0UnSt. Anthony's HospitalComment on above:Performed By: #### [id number] ####[facility] [place] [address] Immature granulocytes (Bld) [#/Vol]0.02 10*3/uLNormal0.00-0.20UnSt. Anthony's HospitalComment on above:Performed By: #### [id number] ####[facility] ([facility])[address] [place], [place] [address]Ljowaaog granulocytes/100 WBC (Bld)0.4 %Normal0.0-1.0UnSt. Anthony's HospitalComment on above: Performed By: #### [id number] ####[facility] ([facility])[address] [place], [place] [address]Wsiejulpogv (Bld) [#/Vol]2.24 10*3/uLNormal1.20-4.00 [facility] HospitalComment on above:Performed By: #### [id number] ####[facility] ([facility])[address] [place] [address]Cxxipsicomq/100 WBC (Bld)41.0 %Twjweh13.0-45.0UnSt. Anthony's HospitalComment on above:Performed By: #### [id number] ####[facility] ([facility])[address] [place], [place] [address]RKA (RBC) [Entitic mass]30.4 ctKjokzm75.0-33.0UnSt. Anthony's HospitalComment on above:Performed By: #### [id number] ####[facility] ([facility])[address] [place], [place] [address]QCJ (RBC) [Entitic vol] 93.8 pDPncxbx59.0-98.0UnSt. Anthony's HospitalComment on above: Performed By: #### [id number] ####[facility] ([facility])[address] [place], [place] [address]Pnkimziah (Bld) [#/Vol]0.48 10*3/uLNormal0.10-1.00UnSt. Anthony's HospitalComment on above:Performed By: #### [id number] ####[facility] ([facility])[address] [place], [place] [address]Lsitaxkuw/100 WBC (Bld) 8.8 %Normal5.0-12.0UnSt. Anthony's HospitalComment on above:Performed By: #### [id number] ####[facility] ([facility])[address] [place], [place] [address]Wfwggfvrdif (Bld) [#/Vol]2.48 10*3/uLNormal1.60-7.60UnSt. Anthony's HospitalComment on above:Performed By: #### [id number] ####[facility] ([facility])[address] [place], [place] [address]Fbtximubgfa/100 WBC (Bld)45.2 %Normal 40.0-72.0UnSt. Anthony's HospitalComment on above:Performed By: #### [id number] ####[facility] ([facility])[address] [address]OISY (PER 100 WBCS) BY AUTOMATED COUNT0.0 %Kbwjaf7EaqawhsyrnSt. Anthony's Hospital Comment on above:Performed By: #### [id number] ####[facility] ([facility])[address] [address]VHHJJNQDQ (10*3/UL) IN BLOOD AUTOMATED OMTAV700 10*3/lJXlrgnt722-742AvhkvvxacwSt. Anthony's HospitalComment on above: Performed By: #### [id number] ####[facility] ([facility])[address] [address]KTF (Bld) [#/Vol]3.36 10*6/uLLow3.80-5.00UnSt. Anthony's HospitalComment on above:Performed By: #### [id number] ####[facility] ([facility])[address] [address]VQY (Bld) [#/Vol]5.47 10*3/uLNormal 4.00-10.60UnSt. Anthony's HospitalComment on above:Performed By: #### [id number] ####[facility] ([facility])[address] [address]DTBD GLUCOSE METER UNSOLICITED RESULTSon 94-34-5796Fgvydmc [Mass/Vol]115 mg/dLHigh 70-105UnSt. Anthony's HospitalComment on above:Order Comment: Waived Testing in the ED is performed under the ED CLIA certificate #[id number].Result Comment: lhagemaPerformed By: #### [id number] #### [facility] [address] [place] [address]Kjsedgv [Mass/Vol]123 mg/wEBvzp95-586MapgimpsrvSt. Anthony's HospitalComment on above:Order Comment: Waived Testing in the ED is performed under the ED CLIA certificate #[id number].Result Comment: [email or web address] Performed By: #### [id number] ####[facility] ([facility])[address] [place], [place] [address]OULDD METABOLIC PANELon 04-22-8521Mksxe gap [Moles/Vol]10 mmol/LNormal7-20UnSt. Anthony's HospitalComment on above:Performed By: #### [id number] #### [facility] ([facility]) [address] [place], [place] [address]Idazada [Mass/Vol]8.2 mg/dLLow8.6-10.3UnSt. Anthony's HospitalComment on above:Performed By: #### [id number] #### [facility] ([facility]) [address] [place], [place] [address]Xbcsofpx [Moles/Vol]106 mmol/BPibypf20-712YedteppvokSt. Anthony's HospitalComment on above:Performed By: #### [id number] #### [facility] ([facility]) [address] [place], [place] [address]DQ5 [Moles/Vol]26 mmol/HXusuzk05-32KlglxuybarSt. Anthony's HospitalComment on above:Performed By: #### [id number] #### [facility] ([facility]) [address] [place], [place] [address]Zdnzgqkmvv [Mass/Vol]1.75 mg/dLHigh0.60-1.20UnSt. Anthony's HospitalComment on above:Performed By: #### [id number] #### [facility] ([facility]) [address] [place], [place] [address]OPVBKOWDLH FILTRATION RATE ML/MIN/1.73 SQ M.DZOKMHXLH08.7 mL/min/1.73m*2Low>60.0UnSt. Anthony's HospitalComment on above:Result Comment: The [facility]???s estimated glomerular filtration rate (eGFR) will [...] affect anyone group of individuals.Performed By: #### [id number] #### [facility] ([facility]) [address] [place], [place] [address]Wlcltfb [Mass/Vol]134 mg/gCSikb09-778OerkxdwqucSt. Anthony's HospitalComment on above:Performed By: #### [id number] #### [facility] ([facility]) [address] [place], [place] [address]Tkdtznjhd [Moles/Vol]4.0 mmol/LNormal3.5-5.1UnSt. Anthony's HospitalComment on above:Performed By: #### [id number] #### [facility] ([facility]) [address] [place], [place] [address]Bijtez [Moles/Vol]138 mmol/AUxcagw546-361XqgfuaztobSt. Anthony's HospitalComment on above:Performed By: #### [id number] #### [facility] ([facility]) [address] [place], [place] [address]Dgmi nitrogen [Mass/Vol]36 mg/dLHigh7-25UnSt. Anthony's HospitalComment on above:Performed By: #### [id number] #### [facility] ([facility]) [address] [place], [place] [address]YMNB NITROGEN/CREATININE (MASS RATIO) IN SER/PLAS20.6Normal [facility] HospitalComment on above:Performed By: #### [id number] #### [facility] ([facility]) [address] [place], [place] [address]GQSENHD, IONIZEDon 18-55-2771EWMYJTW IONIZED (MMOL/L) IN BLOOD 1.23 mmol/LNormal1.15-1.33UnSt. Anthony's HospitalComment on above: Performed By: #### [id number] #### [facility] ([facility]) [address] [facility] [place] [address]LVP WITH AUTO DIFFERENTIALon 67-27-0358Gxbydqyso (Bld) [#/Vol] 0.04 10*3/uLNormal0.00-0.20UnSt. Anthony's HospitalComment on above: Performed By: #### [id number] #### [facility] ([facility]) [address] [place] [address]Zqozxuxwg/100 WBC (Bld)0.6 %Normal0.0-1.0UnSt. Anthony's HospitalComment on above:Performed By: #### [id number] #### [facility] ([facility]) [address] [place] [address]Ihyvmnrcyou (Bld) [#/Vol]0.17 10*3/uLNormal0.00-0.50UnSt. Anthony's HospitalComment on above:Performed By: #### [id number] #### [facility] ([facility]) [address] [place], [place] [address]Cgaaldzmpsl/100 WBC (Bld)2.7 %Normal0.0-6.0UnSt. Anthony's HospitalComment on above:Performed By: #### [id number] #### [facility] ([facility]) [address] [place], [place] [address]Ynxjgrvczwl distribution width (RBC) [Ratio]13.4 %Normal 11.5-15.0UnSt. Anthony's HospitalComment on above:Performed By: #### [id number] #### [facility] ([facility]) [address] [place], [place] [address]JZHTOBYXKNO MEAN CORPUSCULAR HEMOGLOBIN CONCENTRATION (G/DL) BY LAMZCKRUM77.9 g/dLLow32.0-35.0UnSt. Anthony's HospitalComment on above:Performed By: #### [id number] #### [facility] ([facility]) [address] [place], [place] [address]Xajhdcwohp (Bld) [Volume fraction]31.3 %Low36.0-45.0UnSt. Anthony's HospitalComment on above:Performed By: #### [id number] #### [facility] ([facility]) [address] [place] [address]Jzosecizef (Bld) [Mass/Vol]10.0 g/dLLow12.0-15.0UnSt. Anthony's HospitalComment on above:Performed By: #### [id number] #### [facility] ([facility]) [address] [place] [address]Zdrqzkzw granulocytes (Bld) [#/Vol]0.02 10*3/uLNormal0.00-0.20 [facility] HospitalComment on above:Performed By: #### [id number] #### [facility] ([facility]) [address] [place] [address]Khbrrwtf granulocytes/100 WBC (Bld)0.3 %Normal0.0-1.0UnSt. Anthony's HospitalComment on above:Performed By: #### [id number] #### [facility] ([facility]) [address] [place] [address]Scqadyzcswi (Bld) [#/Vol]1.83 10*3/uLNormal1.20-4.00UnSt. Anthony's HospitalComment on above:Performed By: #### [id number] #### [facility] ([facility]) [address] [place] [address]Fslmnvbtwgv/100 WBC (Bld)29.5 %Huignq92.0-45.0UnSt. Anthony's HospitalComment on above:Performed By: #### [id number] #### [facility] ([facility]) [address] [place] [address]WPR (RBC) [Entitic mass]30.2 fkTsvpjt76.0-33.0UnSt. Anthony's HospitalComment on above:Performed By: #### [id number] #### [facility] ([facility]) [address] [place] [address]NKC (RBC) [Entitic vol]94.6 pFUigxrx34.0-98.0UnSt. Anthony's HospitalComment on above:Performed By: #### [id number] #### [facility] ([facility] [address] [place] [address]Qmezcqisk (Bld) [#/Vol]0.49 10*3/uLNormal0.10-1.00UnSt. Anthony's HospitalComment on above:Performed By: #### [id number] #### [facility] ([facility]) [address] [place] [address]Kwsekzdnp/100 WBC (Bld)7.9 %Normal5.0-12.0UnSt. Anthony's HospitalComment on above:Performed By: #### [id number] #### [facility] ([facility]) [address] [place] [address]Jggpfmsyocm (Bld) [#/Vol]3.66 10*3/uLNormal1.60-7.60UnSt. Anthony's HospitalComment on above:Performed By: #### [id number] #### [facility] ([facility]) [address] [place] [address]Dzytmbkklwb/100 WBC (Bld)59.0 %Ndlzig43.0-72.0UnSt. Anthony's HospitalComment on above:Performed By: #### [id number] #### [facility] ([facility]) [address] [place] [address]GXCO (PER 100 WBCS) BY AUTOMATED COUNT0.0 %Sdopmu8EqjxpipqtqSt. Anthony's HospitalComment on above:Performed By: #### [id number] #### [facility] ([facility]) [address] [place] [address]DPFNTXNQU (10*3/UL) IN BLOOD AUTOMATED [id number] 10*3/uLNormal 150-400UnSt. Anthony's HospitalComment on above:Performed By: #### [id number] #### [facility] ([facility]) [address] [place] [address]OTS (Bld) [#/Vol]3.31 10*6/uLLow3.80-5.00UnSt. Anthony's HospitalComment on above:Performed By: #### [id number] #### [facility] ([facility]) [address] [place] [address]PBX (Bld) [#/Vol]6.21 10*3/uLNormal4.00-10.60UnSt. Anthony's HospitalComment on above:Performed By: #### [id number] #### [facility] ([facility]) [address] [place] [address]EBZJ GLUCOSE METER UNSOLICITED RESULTSon 65-12-2742Zrfdsbs [Mass/Vol]237 mg/eIRfjg86-721EjeosvbyhnSt. Anthony's HospitalComment on above:Order Comment: Waived Testing in the ED is performed under the ED CLIA certificate #[id number].Result Comment: [email or web address] Critical Value NotedPerformed By: #### [id number] ####[facility] ([facility])[address] [place] [address]Svyrxou [Mass/Vol]213 mg/cMYyof34-841 [facility] HospitalComment on above:Order Comment: Waived Testing in the ED is performed under the ED CLIA certificate #[id number].Result Comment: [email or web address] By: #### [id number] #### [facility] ([facility]) [address] [place] [address]Vomtryc [Mass/Vol]211 mg/jJRiyh60-384UafzewyxeiSt. Anthony's HospitalComment on above:Order Comment: Waived Testing in the ED is performed under the ED CLIA certificate #[id number].Result Comment: [email or web address] Performed By: #### [id number] #### [facility] ([facility]) [address] [place] [address]Zfsetkx [Mass/Vol]160 mg/kSZjuh08-679XbpixtlaymSt. Anthony's HospitalComment on above:Order Comment: Waived Testing in the ED is performed under the ED CLIA certificate #[id number].Result Comment: [email or web address] Performed By: #### [id number] #### [facility] ([facility]) [address] [place] [address]YZNROJYzn 98-33-9071Tpqfgrt [Mass/Vol]2.5 g/dLLow3.5-5.7 [facility] HospitalComment on above:Performed By: #### [id number] ####[facility] ([facility])[address] [place] [address]LYRWI METABOLIC PANELon 24-34-5787Zjwiz gap [Moles/Vol]9 mmol/LNormal7-20UnSt. Anthony's HospitalComment on above:Performed By: #### [id number] ####[facility] ([facility])[address] [place] [address]Hiwoocb [Mass/Vol]6.6 mg/dLLow8.6-10.3 [facility] HospitalComment on above:Performed By: #### [id number] ####[facility] ([facility])[address] [place] [address]Tsbzjwnn [Moles/Vol]110 mmol/UAsxm67-295OfobfpcaifSt. Anthony's HospitalComment on above:Performed By: #### [id number] ####[facility] ([facility])[address] [address]OU6 [Moles/Vol]23 mmol/GYslgwa49-02QskxrvrpqoSt. Anthony's HospitalComment on above:Performed By: #### [id number] ####[facility] ([facility])[address] [place] [address]Crrjadvdeh [Mass/Vol]1.89 mg/dLHigh 0.60-1.20UnSt. Anthony's HospitalComment on above:Performed By: #### [id number] ####[facility] ([facility])[address] [place] [address]EFRMBLLVUQ FILTRATION RATE ML/MIN/1.73 SQ M.AJKIJAQOF11.6 mL/min/1.73m*2Low>60.0UnSt. Anthony's HospitalComment on above:Result Comment: [facility]???s estimated glomerular filtration rate (eGFR) will [...] group of individuals. Performed By: #### [id number] ####[facility] ([facility])[address] [place], [place] [address]Ejorjks [Mass/Vol]164 mg/gQLzoq24-018OccbxuuahkSt. Anthony's HospitalComment on above:Performed By: #### [id number] ####[facility] ([facility])[address] [place], [place] [address]Arboaavlk [Moles/Vol]3.7 mmol/LNormal 3.5-5.1UnSt. Anthony's HospitalComment on above:Performed By: #### [id number] ####[facility] ([facility])[address] [place], [place] [address]Mynohs [Moles/Vol]138 mmol/OEquknq009-584TrrzsjlgwvSt. Anthony's HospitalComment on above:Performed By: #### [id number] ####[facility] ([facility])[address] [place], [place] [address]Fmds nitrogen [Mass/Vol]32 mg/dLHigh7-25UnSt. Anthony's HospitalComment on above:Performed By: #### [id number] ####[facility] ([facility])[address] [place], [place] [address]EJYJ NITROGEN/CREATININE (MASS RATIO) IN SER/PLAS16.9NormalUniversMain Campus Medical CenterComment on above: Performed By: #### [id number] ####[facility] ([facility])[address] [place], [place] [address]UVC WITH AUTO DIFFERENTIALon 07-72-1979Wdxvbwhpw (Bld) [#/Vol]0.04 10*3/uLNormal0.00-0.20UnSt. Anthony's HospitalComment on above: Performed By: #### [id number] ####[facility] ([facility])[address] [place], [place] [address]Udfwnxfpb/100 WBC (Bld)0.5 %Normal0.0-1.0UnSt. Anthony's HospitalComment on above:Performed By: #### [id number] ####[facility] ([facility])[address] [place], [place] [address]Ozaobxkdopp (Bld) [#/Vol]0.09 10*3/uL Normal0.00-0.50UnSt. Anthony's HospitalComment on above:Performed By: #### [id number] ####[facility] ([facility])[address] [place] [address] Eosinophils/100 WBC (Bld)1.2 %Normal0.0-6.0UnSt. Anthony's Hospital Comment on above:Performed By: #### [id number] ####[facility] ([facility])[address] [place], [place] [address]Oqidathcuca distribution width (RBC) [Ratio]13.5 % Wexmlt94.5-15.0UnSt. Anthony's HospitalComment on above:Performed By: #### [id number] ####[facility] ([facility])[address] [place] [address] ERYTHROCYTE MEAN CORPUSCULAR HEMOGLOBIN CONCENTRATION (G/DL) BY CVXPEZSOU37.7 g/sTNowzck16.0-35.0UnSt. Anthony's HospitalComment on above:Performed By: #### [id number] ####[facility] ([facility])[address] [place], [place] [address]Lnqpaykyjd (Bld) [Volume fraction]26.6 %Low36.0-45.0UnSt. Anthony's HospitalComment on above:Performed By: #### [id number] ####[facility] ([facility])[address] [place], [place] [address]Xbssflbrpu (Bld) [Mass/Vol]8.7 g/dLLow 12.0-15.0UnSt. Anthony's HospitalComment on above:Performed By: #### [id number] ####[facility] ([facility])[address] [place], [place] [address]Shnxkxsd granulocytes (Bld) [#/Vol]0.03 10*3/uLNormal0.00-0.20UnSt. Anthony's HospitalComment on above:Performed By: #### [id number] ####[facility] ([facility])[address] [place], [place] [address]Ehdqckez granulocytes/100 WBC (Bld)0.4 %Normal0.0-1.0UnSt. Anthony's HospitalComment on above:Performed By: #### [id number] ####[facility] ([facility])[address] [place] [address] Lymphocytes (Bld) [#/Vol]1.44 10*3/uLNormal1.20-4.00UnSt. Anthony's HospitalComment on above:Performed By: #### [id number] ####[facility] ([facility])[address] [place] [address]Txagvmeadqc/100 WBC (Bld)19.6 %Low 20.0-45.0UnSt. Anthony's HospitalComment on above:Performed By: #### [id number] ####[facility] ([facility])[address] [place], [place] [address]MFR (RBC) [Entitic mass]30.4 exYnmnap35.0-33.0UnSt. Anthony's Hospital Comment on above:Performed By: #### [id number] ####[facility] ([facility])[address] [facility] [place], [place] [address]XVK (RBC) [Entitic vol]93.0 zTTpolkk36.0-98.0 [facility] HospitalComment on above:Performed By: #### [id number] ####[facility] ([facility])[address] [facility] [place], [place] [address]Iratbbiaz (Bld) [#/Vol]0.49 10*3/uLNormal0.10-1.00UnSt. Anthony's HospitalComment on above:Performed By: #### [id number] ####[facility] ([facility])[address] [address]Jhzzozyjc/100 WBC (Bld)6.7 %Normal5.0-12.0UnSt. Anthony's HospitalComment on above:Performed By: #### [id number] ####[facility] ([facility])[address] [place] [address]Lwgdtmlkios (Bld) [#/Vol] 5.26 10*3/uLNormal1.60-7.60UnSt. Anthony's HospitalComment on above: Performed By: #### [id number] ####[facility] ([facility])[address] [place] [address]Zercuaxfsdx/100 WBC (Bld)71.6 %Jrxbsd63.0-72.0UnSt. Anthony's HospitalComment on above:Performed By: #### [id number] ####[facility] ([facility])[address] [place] [address]UWQF (PER 100 WBCS) BY AUTOMATED COUNT0.0 %Xdgixu2PzkycdkgdmSt. Anthony's HospitalComment on above: Performed By: #### [id number] ####[facility] ([facility])[address] [place] [address]ROLOUHSXA (10*3/UL) IN BLOOD AUTOMATED KVHFQ425 10*3/uLNormal 150-400UnSt. Anthony's HospitalComment on above:Performed By: #### [id number] ####[facility] ([facility])[address] [place], [place] [address]BKE (Bld) [#/Vol]2.86 10*6/uLLow3.80-5.00UnSt. Anthony's HospitalComment on above:Performed By: #### [id number] ####[facility] ([facility])[address] [place] [address]MBL (Bld) [#/Vol]7.35 10*3/uLNormal4.00-10.60UnSt. Anthony's HospitalComment on above:Performed By: #### [id number] ####[facility] ([facility])[address] [place], [place] [address]LXZN GLUCOSE METER UNSOLICITED RESULTSon 83-80-4383Yrtpkwl [Mass/Vol]168 mg/uYIfnq77-257YzorftjwleSt. Anthony's HospitalComment on above:Order Comment: Waived Testing in the ED is performed under the ED CLIA certificate #[id number].Result Comment: [email or web address] Critical Value NotedPerformed By: #### [id number] #### [facility] ([facility]) [address] [place] [address]Zngzuwn [Mass/Vol]96 mg/tXQetszu88-241VlamolimolSt. Anthony's HospitalComment on above:Order Comment: Waived Testing in the ED is performed under the ED CLIA certificate #[id number].Result Comment: [email or web address] Performed By: #### [id number] ####[facility] ([facility])[address] [place], [place] [address]Dcwslib [Mass/Vol]171 mg/oAApqq17-659OtwypekaikSt. Anthony's HospitalComment on above:Order Comment: Waived Testing in the ED is performed under the ED CLIA certificate #[id number].Result Comment: [email or web address] Performed By: #### [id number] ####[facility] ([facility])[address] [place], [place] [address]Qscqnjn [Mass/Vol]105 mg/bXBeului00-700DdvwjkozakSt. Anthony's HospitalComment on above:Order Comment: Waived Testing in the ED is performed under the ED CLIA certificate #[id number].Result Comment: [email or web address] Performed By: #### [id number] ####[facility] ([facility])[address] [place], [place] [address]LERCQ METABOLIC PANELon 88-44-7576Jkxbo gap [Moles/Vol]13 mmol/LNormal7-20UnSt. Anthony's HospitalComment on above:Performed By: #### [id number] #### [facility] ([facility]) [address] [place], [place] [address]Tzdnajt [Mass/Vol]7.3 mg/dLLow8.6-10.3UnSt. Anthony's HospitalComment on above:Performed By: #### [id number] #### [facility] ([facility]) [address] [place], [place] [address]Mpqwjiqi [Moles/Vol]105 mmol/LMcrukd24-450JrhzfydtxcSt. Anthony's HospitalComment on above:Performed By: #### [id number] #### [facility] ([facility]) [address] [place], [place] [address]RV6 [Moles/Vol]20 mmol/CWtd16-70NuxubkopjtSt. Anthony's HospitalComment on above:Performed By: #### [id number] #### [facility] ([facility]) [address] [place], [place] [address]Gmgqsfdevo [Mass/Vol]3.00 mg/dLHigh0.60-1.20UnSt. Anthony's HospitalComment on above:Performed By: #### [id number] #### [facility] ([facility]) [address] [place], [place] [address]RGYSLPLLVM FILTRATION RATE ML/MIN/1.73 SQ M.OIWLORUQG15.7 mL/min/1.73m*2Low>60.0UnSt. Anthony's HospitalComment on above:Result Comment: [facility]???s estimated glomerular filtration rate (eGFR) will [...] affect anyone group of individuals.Performed By: #### [id number] #### [facility] ([facility]) [address] [place], [place] [address]Caatmec [Mass/Vol]239 mg/wRWwmp81-794RtrxbangnwSt. Anthony's HospitalComment on above:Performed By: #### [id number] #### [facility] ([facility]) [address] [place] [address]Aikncexqm [Moles/Vol]4.2 mmol/LNormal3.5-5.1UnSt. Anthony's HospitalComment on above:Performed By: #### [id number] #### [facility] ([facility]) [address] [place] [address]Xvzled [Moles/Vol]134 mmol/ONut942-004DwlbsgapgbSt. Anthony's HospitalComment on above:Performed By: #### [id number] #### [facility] ([facility]) [address] [place] [address]Nenf nitrogen [Mass/Vol]29 mg/dLHigh7-25UnSt. Anthony's HospitalComment on above:Performed By: #### [id number] #### [facility] ([facility]) [address] [place] [address]FJJY NITROGEN/CREATININE (MASS RATIO) IN SER/PLAS9.7Normal [facility] HospitalComment on above:Performed By: #### [id number] #### [facility] ([facility]) [address] [place] [address]BTjc 85-42-3123EENVHKIA KINASE (U/L) IN SER/PLAS56.0 U/LNormal 30.0-223.0UnSt. Anthony's HospitalComment on above:Performed By: #### [id number] #### [facility] ([facility]) [address] [place] [address]HECOVPHum 85-64-4383VRWRPPU Attestation signed by lEisabeth Fowler MD at 10/03/2024 8:51 AM I [...] Faculty, Division of Nephrology, Department of Medicine, [facility]. Nephrology Consult Note Patient : Addie [...] edema, morbid obesity who was taken to [facility] ED as she was noted to [...] were noted to be elevated 180-->166 pg/mL. [facility] Cardiology was consulted from [facility] and she is transferred here for further [...] leg: No edema. Neurolog (more content not included)...NormalUnSt. Anthony's Hospital CREATININE, URINE, RANDOMon 84-62-8418Ahtwrjlzfp (U) [Mass/Vol]200.0 mg/dLNormal 26-299UnSt. Anthony's HospitalComment on above:Performed By: #### [id number] #### [facility] ([facility]) [address] [place], [place] [address]GUFRSUUDJjb 38-42-6164Ckfwpgecc [Mass/Vol]2.2 mg/dLNormal1.9-2.7 [facility] HospitalComment on above:Performed By: #### [id number] #### [facility] ([facility]) [address] [place], [place] [address]NGNO GLUCOSE METER UNSOLICITED RESULTSon 65-37-8808Gzuigdl [Mass/Vol]314 mg/jAQzts69-430SchyvdvduqSt. Anthony's HospitalComment on above:Order Comment: Waived Testing in the ED is performed under the ED CLIA certificate #[id number].Result Comment: jgnmbjm9Bqqdfmucb By: #### [id number] #### [facility] ([facility]) [address] [place], [place] [address]Flglwhp [Mass/Vol]413 mg/zAEzfh49-448AbzpryoqlxProMedica Defiance Regional HospitalComment on above:Order Comment: Waived Testing in the ED is performed under the ED CLIA certificate #[id number].Result Comment: Performed By: #### [id number] #### [facility] ([facility]) [address] [place], [place] [address]Xekerql [Mass/Vol]221 mg/hNNaon58-176XuotkzgpccSt. Anthony's HospitalComment on above:Order Comment: Waived Testing in the ED is performed under the ED CLIA certificate #[id number].Result Comment: [email or web address] Performed By: #### [id number] ####[facility] ([facility])[address] [place], [place] [address]Dkyhmxd [Mass/Vol]225 mg/uPSuxp91-176BzuclpckdwProMedica Defiance Regional HospitalComment on above:Order Comment: Waived Testing in the ED is performed under the ED CLIA certificate #[id number].Result Comment: [email or web address] Performed By: #### [id number] ####[facility] ([facility])[address] [place], [place] [address]Feppowc [Mass/Vol]249 mg/sVBkoq96-877RquykwihnmProMedica Defiance Regional HospitalComment on above:Order Comment: Waived Testing in the ED is performed under the ED CLIA certificate #[id number].Result Comment: [email or web address] Performed By: #### [id number] #### [facility] ([facility]) [address] [place], [place] [address]Nvkjuvd [Mass/Vol]213 mg/pCBpnl41-987JsjnpzveyuProMedica Defiance Regional HospitalComment on above:Order Comment: Waived Testing in the ED is performed under the ED CLIA certificate #[id number].Result Comment: [email or web address] Performed By: #### [id number] #### [facility] [address] [place], [place] [address]IPCKMQG, URINE, RANDOMon 50-94-9329Helzxiz (U) [Mass/Vol]61.3 mg/dLNormalUniversMain Campus Medical CenterComment on above:Result Comment: There are no established reference values for random urine specimens.Performed By: #### [id number] ####[facility] ([facility])[address] [place] [address] SODIUM, URINE, RANDOMon 58-90-3046Sazpuk (U) [Moles/Vol]28 mmol/LNormal [facility] HospitalComment on above:Performed By: #### [id number] #### [facility] ([facility]) [address] [place], [place] [address]UMFABLZWNH WITH MICROSCOPICon 96-02-4810OIPQQYAZF, TOTAL PRESENCE IN URINENegativeNormalNegativeUnSt. Anthony's Hospital Comment on above:Performed By: #### [id number] #### [facility] ([facility]) [address] [place], [place] [address]KHWIX IN URINEPresentAbnormalNone SeenUnSt. Anthony's HospitalComment on above:Performed By: #### [id number] #### [facility] ([facility]) [address] [place], [place] [address]Myjpill (U)ClearNormalClearUnSt. Anthony's Hospital Comment on above:Performed By: #### [id number] #### [facility] ([facility]) [address] [place], [place] [address]Excjy (U)YellowNormalColorless, Yellow, Light-YellowUnSt. Anthony's HospitalComment on above:Performed By: #### [id number] #### [facility] ([facility]) [address] [place], [place] [address]Pdopfaz (U) [Mass/Vol]mg/dLAbnormalNormalUniversMain Campus Medical CenterComment on above:Performed By: #### [id number] #### [facility] ([facility]) [address] [place], [place] [id number] PRESENCE IN URINENegativeNormalNegMorrow County HospitalComment on above:Performed By: #### [id number] #### [facility] ([facility]) [address] [place], [place] [id number] CASTS GRADED/LPF IN URINE SEDIMENT BY MICROSCOPY3-5 Abnormal0-2UnSt. Anthony's HospitalComment on above:Performed By: #### [id number] #### [facility] ([facility]) [address] [facility] [place] [address]Fqzuxjd Ql (U)NegativeNormalNegativeUnSt. Anthony's HospitalComment on above:Performed By: #### [id number] #### [facility] ([facility]) [address] [place], [place] [address]PRZDBNTJO ESTERASE PRESENCE IN URINE BY TEST STRIPModerate AbnormalNegativeUnSt. Anthony's HospitalComment on above:Performed By: #### [id number] #### [facility] ([facility]) [address] [place], [place] [address]PBPUEZN PRESENCE IN URINENegativeNormalNegativeUnSt. Anthony's HospitalComment on above:Performed By: #### [id number] #### [facility] ([facility]) [address] [place], [place] [address]pP (U)5.0 [pH]Normal5.0-8.0UnSt. Anthony's Hospital Comment on above:Performed By: #### [id number] #### [facility] ([facility]) [address] [place], [place] [address]Peymius (U) [Mass/Vol]30 mg/dLAbnormalNegativeUnSt. Anthony's HospitalComment on above:Performed By: #### [id number] #### [facility] ([facility]) [address] [place], [place] [address]EDD (#/HPF) IN URINE SEDIMENT0-2NormalNone Seen, 0-2UnSt. Anthony's HospitalComment on above:Performed By: #### [id number] #### [facility] ([facility]) [address] [place], [place] [address]Tpbgplkl gravity (U) [Rel density]1.841Djaclh3.010-1.030 [facility] HospitalComment on above:Performed By: #### [id number] #### [facility] ([facility]) [address] [place] [address]VWJMJGVL EPITHELIAL CELLS (#/LPF) IN URINE SEDIMENTOccasional NormalNone Seen, Occasional, FewUnSt. Anthony's HospitalComment on above:Performed By: #### [id number] #### [facility] ([facility]) [address] [place] [address]RDRYYZVRSRUW (MG/DL) IN URINENormalNormalNormalUniversity Kindred HealthcareComment on above:Performed By: #### [id number] #### [facility] ([facility]) [address] [place] [address]UXC (LEUKOCYTE) (#/HPF) IN URINE GTFLFIMJ47-71VahxxrhzRyfl Seen, 0-2UnSt. Anthony's HospitalComment on above:Performed By: #### [id number] #### [facility] ([facility]) [address] [place], [place] [address]Q-GEES NATRIURETIC PEPTIDEon 69-37-3005Skwgvtccypr peptide B (Bld) [Mass/Vol]19 pg/mLNormal0-100UnSt. Anthony's HospitalComment on above:Performed By: #### [id number] ####[facility] ([facility])[address] [place] [address]AOP WITH AUTO DIFFERENTIALon 71-29-9511Mjqwyznxj (Bld) [#/Vol]0.07 10*3/uLNormal0.00-0.20UnSt. Anthony's HospitalComment on above:Performed By: #### [id number] ####[facility] ([facility])[address] [place] [address]Xpimrmgfw/100 WBC (Bld)0.9 %Normal0.0-1.0UnSt. Anthony's HospitalComment on above:Performed By: #### [id number] ####[facility] ([facility])[address] [place] [address]Ljddykcksnd (Bld) [#/Vol]0.12 10*3/uL Normal0.00-0.50UnSt. Anthony's HospitalComment on above:Performed By: #### [id number] ####[facility] (BEAKER)[address] [place] [address] Eosinophils/100 WBC (Bld)1.5 %Normal0.0-6.0UnSt. Anthony's Hospital Comment on above:Performed By: #### [id number] ####[facility] ([facility])[address] [place], [place] [address]Dcjdagpycru distribution width (RBC) [Ratio]14.1 % Qntzkl76.5-15.0UnSt. Anthony's HospitalComment on above:Performed By: #### [id number] ####[facility] ([facility])[address] [place] [address] ERYTHROCYTE MEAN CORPUSCULAR HEMOGLOBIN CONCENTRATION (G/DL) BY LVVDSEQDO03.6 g/zAHmhfkz16.0-35.0UnSt. Anthony's HospitalComment on above:Performed By: #### [id number] ####[facility] ([facility])[address] [place], [place] [address]Pstwurcgpk (Bld) [Volume fraction]34.8 %Low36.0-45.0UnSt. Anthony's HospitalComment on above:Performed By: #### [id number] ####[facility] (BEAKER)[address] [place], [place] [address]Fdruuzxvzl (Bld) [Mass/Vol]11.7 g/dL Low12.0-15.0UnSt. Anthony's HospitalComment on above:Performed By: #### [id number] ####[facility] (BEAKER)[address] [place] [address] Immature granulocytes (Bld) [#/Vol]0.04 10*3/uLNormal0.00-0.20UnSt. Anthony's HospitalComment on above:Performed By: #### [id number] ####[facility] (BEAKER)[address] [place], [place] [address]Uxmmnwgp granulocytes/100 WBC (Bld)0.5 %Normal0.0-1.0UnSt. Anthony's HospitalComment on above: Performed By: #### [id number] ####[facility] (BEAKER)[address] [place] [address]Bhnidkwyits (Bld) [#/Vol]1.88 10*3/uLNormal1.20-4.00 [facility] HospitalComment on above:Performed By: #### [id number] ####[facility] (BEAKER)[address] [place] [address]Teaaxzqrplr/100 WBC (Bld)23.2 %Oyyuqp41.0-45.0UnSt. Anthony's HospitalComment on above:Performed By: #### [id number] ####[facility] (BEAKER)[address] [place], [place] [address]NHO (RBC) [Entitic mass]30.5 apBsklaz69.0-33.0UnSt. Anthony's HospitalComment on above:Performed By: #### [id number] ####[facility] (BEAKER)[address] [place], [place] [address]ZUL (RBC) [Entitic vol] 90.9 mOCzjhij56.0-98.0UnSt. Anthony's HospitalComment on above: Performed By: #### [id number] ####[facility] (BEAKER)[address] [place], [place] [address]Gzppqkipk (Bld) [#/Vol]0.57 10*3/uLNormal0.10-1.00UnSt. Anthony's HospitalComment on above:Performed By: #### [id number] ####[facility] (BEAKER)[address] [place], [place] [address]Emwjbmxny/100 WBC (Bld) 7.0 %Normal5.0-12.0UnSt. Anthony's HospitalComment on above:Performed By: #### [id number] ####[facility] (BEAKER)[address] [place], [place] [address]Pusrkvmurln (Bld) [#/Vol]5.41 10*3/uLNormal1.60-7.60UnSt. Anthony's HospitalComment on above:Performed By: #### [id number] ####[facility] [place] [address]Cbclgdkdiqo/100 WBC (Bld)66.9 %Normal 40.0-72.0UnSt. Anthony's HospitalComment on above:Performed By: #### [id number] ####[facility] ([facility])[address] [place] [address]SMQC (PER 100 WBCS) BY AUTOMATED COUNT0.0 %Wcxkfy5UepprjblilSt. Anthony's Hospital Comment on above:Performed By: #### [id number] ####[facility] ([facility])[address] [place] [address]TUTJAVFIJ (10*3/UL) IN BLOOD AUTOMATED SKWCZ197 10*3/hVPpgcom091-173SmanicxbecSt. Anthony's HospitalComment on above: Performed By: #### [id number] ####[facility] ([facility])[address] [place], [place] [address]JHT (Bld) [#/Vol]3.83 10*6/uLNormal3.80-5.00UnSt. Anthony's HospitalComment on above:Performed By: #### [id number] ####[facility] ([facility])[address] [place], [place] [address]DYQ (Bld) [#/Vol]8.09 10*3/uLNormal4.00-10.60UnSt. Anthony's HospitalComment on above: Performed By: #### [id number] ####[facility] [place], [place] [address]AFDXLVTYMRJBV METABOLIC PANELon 84-60-8159Uomjjwp [Mass/Vol] 3.4 g/dLLow3.5-5.7UnSt. Anthony's HospitalComment on above:Performed By: #### [id number] ####[facility] ([facility])[address] [place] [address] ALP [Catalytic activity/Vol]104 U/HLituqb55-775CvycymmnwvSt. Anthony's HospitalComment on above:Performed By: #### [id number] ####[facility] ([facility])[address] [place], [place] [address]BCN [Catalytic activity/Vol]11 U/L Normal7-52UnSt. Anthony's HospitalComment on above:Performed By: #### [id number] ####[facility] ([facility])[address] [place], [place] [address]Icfov gap [Moles/Vol]14 mmol/LNormal7-20UnSt. Anthony's HospitalComment on above:Performed By: #### [id number] ####[facility] ([facility])[address] [place], [place] [address]IWI [Catalytic activity/Vol]9 U/IXmp21-59LcnigmqbpzSt. Anthony's HospitalComment on above:Performed By: #### [id number] ####[facility] ([facility])[address] [place], [place] [address]Aeyaglohp [Mass/Vol]0.4 mg/dLNormal 0.3-1.0UnSt. Anthony's HospitalComment on above:Performed By: #### [id number] ####[facility] ([facility])[address] [place], [place] [address]Zrkcwyh [Mass/Vol]7.6 mg/dLLow8.6-10.3UnSt. Anthony's HospitalComment on above:Performed By: #### [id number] ####[facility] ([facility])[address] [place], [place] [address]Roxsaocq [Moles/Vol]99 mmol/RNkjfwy03-886FcvgpidbzzSt. Anthony's HospitalComment on above:Performed By: #### [id number] ####[facility] ([facility])[address] [place], [place] [address]XC6 [Moles/Vol]22 mmol/GBwodcn79-25 [facility] HospitalComment on above:Performed By: #### [id number] ####[facility] ([facility])[address] [place] [address]Jfkzexuzrs [Mass/Vol]1.99 mg/dLHigh0.60-1.20UnSt. Anthony's HospitalComment on above:Performed By: #### [id number] ####[facility] ([facility])[address] [place] [address]OBWRDZCTYK FILTRATION RATE ML/MIN/1.73 SQ M.COIITDOEU87.6 mL/min/1.73m*2Low>60.0UnSt. Anthony's HospitalComment on above:Result Comment: The [facility]???s estimated glomerular filtration rate (eGFR) will [...] anyone group of individuals.Performed By: #### [id number] ####[facility] ([facility])[address] [place] [address]Qxwsnyc [Mass/Vol]531 mg/dLCritically snox53-914 [facility] HospitalComment on above:Performed By: #### [id number] ####[facility] ([facility])[address] [place] [address]Zxcajziye [Moles/Vol]4.1 mmol/LNormal3.5-5.1UnSt. Anthony's HospitalComment on above:Performed By: #### [id number] ####[facility] ([facility])[address] [place] [address]Yimztiu [Mass/Vol]6.1 g/dLNormal6.0-8.3UnSt. Anthony's HospitalComment on above:Performed By: #### [id number] ####[facility] ([facility])[address] [place] [address]Ldclvv [Moles/Vol]131 mmol/ERbd859-975 [facility] HospitalComment on above:Performed By: #### [id number] ####[facility] (LORI)[address] [place], [place] [address]Rvxj nitrogen [Mass/Vol]26 mg/dLHigh7-25[facility] HospitalComment on above: Performed By: #### [id number] ####[facility] (ALONZO)[address] [place], [place] [address]OVAU NITROGEN/CREATININE (MASS RATIO) IN SER/PLAS13.1NormalUnSt. Anthony's HospitalComment on above:Performed By: #### [id number] ####[facility] (LORI)[address] [place], [place] [address]HDQMSWGbp 10-01-2024 CONSULTUn[facility] Speech Therapy Assistant Complaint Left foot wound History and Present [...] History: Diagnosis Date Anxiety Bipolar 1 disorder ([facility]/HCC) Cardiac arrest ([facility]) 2019 Chronic back pain Chronic kidney disease Coronary artery disease Depression Diabetes mellitus ([facility]/HCC) Hypertension Insomnia Pacemaker Schizoaffective disorder ([facility]/HCC) Seizures ([facility]) Stroke ([facility]) Past Surgical History Past Surgical History: [...] (ProtoNix) 40 mg EC (more content not included)...[facility] HospitalCONSULT Attestation with edits by Juan C Crabtree MD at 10/01/2024 11:36 PM I personally saw and examined the patient on the same date of service as resident/fellow Dr Ho. I discussed the findings and therapeutic plan with the resident/fellow Dr ho. I agree with the documentation, except for any edits/updates below. Teaching Physician's Revisions: None Juan C Crabtree MD, [facility] Cardiology Consult Note Reason for Consult: Elevated [...] also has seizure disorder. She presented to [facility] as transfer from [facility] where she initially presented after a seizure episode associated with vomiting.patient reports 2 seizures episodes prior to this the last couple days. Patient reports that she has been having frequent seizure episodes and she was going to [place] for further evaluation. Her initial labs were [...] palpitations or legs edema. Upon presentation to [facility], she was afebrile and hemodynamically stable, labs [...] medical history of Anxiety, Bipolar 1 disorder ([facility]), Cardiac arrest ([facility]) (2019), Chronic back pain, Chronic kidney disease, Coronary artery disease, Depression, Diabetes mellitus ([facility]), Hypertension, Insomnia, Pacemaker, Schizoaffective disorder ([facility]), Seizures ([facility]), and Stroke ([facility]). Surgical History She has a past [...] 3 times daily urea (more content not included)...NormalUnSt. Anthony's Hospital HEMOGLOBIN A1Con 78-09-8300Gmkprln [Mass/Vol]260 mg/dLNormalUniversity Kindred HealthcareComment on above:Performed By: #### [id number] #### [facility] (AKER) [address], [place] [address]JcA6a (Bld) [Mass fraction]10.7 %High4.0-6.0UnSt. Anthony's HospitalComment on above:Performed By: #### [id number] #### [facility] (BEAKER) [address], [place] [address]CPKW SENSITIVITY TROPONIN Ion 65-35-6353SA TROPONIN I (NG/L)72 ng/LCritically high<15UnSt. Anthony's HospitalComment on above: Performed By: #### [id number] #### [facility] (BEAKER) [address], [place] [address]QYTMNT ACID WITH 4 HOUR REFLEXon 42-72-5677TXCFJFS (MMOL/L) IN SER/PLAS3.1 mmol/LCritically high0.5-2.2UnSt. Anthony's Hospital Comment on above:Result Comment: Previous result verified on 10/01/2024 1150 on specimen/case [id number] called with component Lactate blood venous for procedure Lactic acid, venous, whole blood with reflex with value 3.4 mmol/L. Performed By: #### [id number] #### [facility] (BEAKER) [address], [place] [address]TJSJJUE (MMOL/L) IN SER/PLAS3.4 mmol/LCritically high0.5-2.2 [facility] HospitalComment on above:Performed By: #### [id number] ####[facility] ([facility])[address] [place] [address]LFEXZ PANELon 19-25-6222MHKM/HDL4.5 mg/dLNormalUniWilson [address] HospitalComment on above:Performed By: #### [id number] ####[facility] ([facility])[address] [place] [address]Urqdwjrhbzz [Mass/Vol]219 mg/eGRwif810-761KuwgpatynfSt. Anthony's HospitalComment on above:Performed By: #### [id number] ####[facility] ([facility])[address] [place] [address]Xxsoaqumj [Mass/Vol]207 mg/dLHigh <150UnSt. Anthony's HospitalComment on above:Result Comment: TRIGLYCERIDE REFERENCE RANGE: 20 YEARS AND OLDER CARDIOVASCULAR RISK LESS THAN 150 mg/dL LOW RISK 150 TO 199 mg/dL BORDERLINE RISK 200 mg/dL AND GREATER HIGH RISKPerformed By: #### [id number] ####[facility] ([facility])[address] [place] [address]Nxfxaatrm [Mass/Vol]129 mg/dLNormal 0-160UnSt. Anthony's HospitalComment on above:Performed By: #### [id number] ####[facility] ([facility])[address] [place] [address]Kjapemkxt [Mass/Vol]49 mg/tTZtosrt50-69YmuyisfvzvSt. Anthony's HospitalComment on above:Performed By: #### [id number] ####[facility] ([facility])[address] [facility] HOS[place]Bet[place], [place] [address]JLN HDL CHOL. (LDL+VLDL)170[address] HospitalComment on above:Performed By: #### [id number] ####[facility] ([facility] [place] [address]LGHAN VLDL-C41 mg/dLHigh0-40UnSt. Anthony's HospitalComment on above:Performed By: #### [id number] ####[facility] ([facility])[address] [place], [place] [address]ZCXKMBNBUio 10-01-2024 Magnesium [Mass/Vol]1.5 mg/dLLow1.9-2.7UnSt. Anthony's Hospital Comment on above:Performed By: #### [id number] ####[facility] ([facility])[address] [place], [place] [address]DLGZ GLUCOSE METER UNSOLICITED RESULTSon 10-01-2024 Glucose [Mass/Vol]134 mg/dCErsy50-945WiyttkdrmzSt. Anthony's HospitalComment on above:Order Comment: Waived Testing in the ED is performed under the ED CLIA certificate #[id number].Result Comment: bmmumnm2Nnhmkxibw By: #### [id number] ####[facility] ([facility])[address] [place], [place] [address]Txzngir [Mass/Vol]294 mg/qUFahc98-514LlyefbltopSt. Anthony's HospitalComment on above:Order Comment: Waived Testing in the ED is performed under the ED CLIA certificate #[id number].Result Comment: zccpme4Dljaufeiw By: #### [id number] #### [facility] ([facility]) [address] [place], [place] [address]Dtiljdm [Mass/Vol]406 mg/qNXthb64-657XchdbdvynxSt. Anthony's HospitalComment on above:Order Comment: Waived Testing in the ED is performed under the ED CLIA certificate #[id number].Result Comment: [id number] Performed By: #### [id number] #### [facility] ([facility]) [address] [place], [place] [address]YRY5 REFLEX TO FT4on 22-09-4918WHQLAEWMASA (MIU/L) IN SER/PLAS BY DETECTION LIMIT <= 0.05 MIU/L3.71 mIU/LNormal0.34-5.60UnSt. Anthony's HospitalComment on above:Performed By: #### [id number] #### [facility] ([facility]) [address] [place], [place] [address]CI LUMBAR SPINE 2-3 VIEWS (STANDARD)on [id number] LUMBAR SPINE 2-3 VIEWS (STANDARD)NormalOaklawn Psychiatric CenterComment on above:Order Comment: Standing AND AP LateralInjury/Trauma or Illness?:Illness/OtherHow long have you had these symptoms (acute/chronic)?:UnknownReason for exam?:Lumbar painHistory of cancer?:uSurgeries, chemotherapy, or radiation?:pacemakerType of Exam?:UnknownAdditional signs and symptoms?:noneBASIC METABOLIC PANELon 39-49-0446Pabcf gap [Moles/Vol]20 mmol/MWwdxku08-18MmpmudOaklawn Psychiatric Center Comment on above:Order Comment: [facility] has implemented the eGFR calculation approach that does not have a coefficient for race that conforms to the NKF-ASN Task Force Recommendations.Performed By: #### [id number] ####[facility] [address] [place], [place] [address] Abbi Choudhary M.D. [id number] [Mass/Vol]8.9 mg/dLNormal8.4-10.2MSt. Mary's [facility] on above:Order Comment: [facility] has implemented the eGFR calculation approach that does not have a coefficient for race that conforms to the NKF-ASN Task Force Recommendations.Performed By: #### [id number] ####[facility] [address] [place], [place] [address] Abbi Choudhary M.D. [id number] [Moles/Vol]97 mmol/JLgd62-263SkmwlnOaklawn Psychiatric CenterComsheridan community hospital on above:Order Comment: [facility] has implemented the eGFR calculation approach that does not have a coefficient for race that conforms to the NKF-ASN Task Force Recommendations.Performed By: #### [id number] ####[facility] [address] [place], [place] [address] Abbi Choudhary M.D. [id number] [Mass/Vol]1.71 mg/dLHigh0.40-1.10[facility] on above:Order Comment: [facility] has implemented the eGFR calculation approach that does not have a coefficient for race that conforms to the NKF-ASN Task Force Recommendations.Performed By: #### [id number] ####[facility] [address] [place], [place] [address] Abbi Choudhary M.D. [id number] mL/min/1.73 m2Low>=60 [facility] on above:Order Comment: [facility] has implemented the eGFR calculation approach that does not have a coefficient for race that conforms to the NKF-ASN Task Force Recommendations. Result Comment: Estimated GFR was calculated using the 2020 CKD-EPI creatinine equation.Performed By: #### [id number] ####[facility] [address] [place], [place] [address] Abbi Choudhary M.D. [id number] [Mass/Vol]468 mg/dLOff scale high 65-99MSt. Mary's [facility]rick Hospital on above:Order Comment: [facility] has implemented the eGFR calculation approach that does not have a coefficient for race that conforms to the NKF-ASN Task Force Recommendations.Performed By: #### [id number] ####[facility] [address] [place] [address] Abbi Choudhary M.D. [id number] (Bld) [Moles/Vol]17 mmol/LLow 21-32[facility] on above:Order Comment: [facility] has implemented the eGFR calculation approach that does not have a coefficient for race that conforms to the NKF-ASN Task Force Recommendations.Performed By: #### [id number] ####[facility] [address] [place], [place] [address] Abbi Choudhary M.D. [id number] [Moles/Vol]4.0 mmol/L Normal3.5-5.1MSt[facility] on above:Order Comment: [facility] has implemented the eGFR calculation approach that does not have a coefficient for race that conforms to the NKF-ASN Task Force Recommendations.Performed By: #### [id number] ####[facility] [address] [place], [place] [address] Abbi Choudhary M.D. [id number] [Moles/Vol]130 mmol/LLow 135-145[facility] on above:Order Comment: [facility] has implemented the eGFR calculation approach that does not have a coefficient for race that conforms to the NKF-ASN Task Force Recommendations.Performed By: #### [id number] ####[facility] [address] [place] [address] Abbi Choudhary M.D. [id number] nitrogen [Mass/Vol]30 mg/dLHigh 8-25[facility]:Order Comment: [facility] has implemented the eGFR calculation approach that does not have a coefficient for race that conforms to the NKF-ASN Task Force Recommendations. Performed By: #### [id number] ####[facility] [address] [place] [address] Abbi Choudhary M.D. [id number] nitrogen/Creatinine [Mass ratio]17.5 mg/mgNormal 10.0-20.0[facility] above:Order Comment: [facility] has implemented the eGFR calculation approach that does not have a coefficient for race that conforms to the NKF-ASN Task Force Recommendations.Performed By: #### [id number] ####[facility] [address] [address] Abbi Choudhary M.D. [id number] WITH AUTO DIFFERENTIALon 19-30-0589TQNF NRBC0.0 %NormalOaklawn Psychiatric CenterComment on above:Performed By: #### [id number] ####[facility] [address] [address] Abbi Choudhary M.D. [id number] NRBC ABS COUNT0.00 K/mcLNormal0.00-0.00O[facility]wn Psychiatric CenterComment on above:Performed By: #### [id number] ####[facility] [address] [address] Abbi Choudhary M.D. [id number] ABSOLUTE COUNT 0.05 K/mcLNormal0.00-0.30O[facility]wn Psychiatric CenterComment on above:Performed By: #### [id number] ####[facility] [address] [address] Abbi Choudhary M.D. [id number]/100 WBC (Bld)0.6 %NormalGood Samaritan Hospital HospitalComment on above:Performed By: #### [id number] ####[facility] [address] [address] Abbi Choudhary M.D. [id number] (Bld) [#/Vol]0.08 10*3/uLNormal 0.00-0.50[facility] HospitalComment on above:Performed By: #### [id number] ####[facility] [address] [address] Abbi Choudhary M.D. 36 [id number]/100 WBC (Bld)0.9 %NormalGood Samaritan Hospital HospitalComment on above:Performed By: #### [id number] #### [facility] [address] [address] Abbi Choudhary M.D. [id number] distribution width (RBC) [Ratio] 13.3 %Hikncc09.6-14.8[facility] HospitalComment on above:Performed By: #### [id number] ####[facility] [address] [address] Abbi Choudhary M.D. [id number] (Bld) [Volume fraction]35.3 %Low36.0-46.0[facility] HospitalComment on above:Performed By: #### [id number] ####[facility] [address] [address] Abbi Choudhary M.D. [id number] (Bld) [Mass/Vol]12.1 g/vXXcetnd02.0-16.0[facility] HospitalComment on above: Performed By: #### [id number] ####[facility] [address] [address] Abbi Choudhary M.D. [id number] ABSOLUTE0.04 K/mcLNormal0.00-0.30[facility] HospitalComment on above:Performed By: #### [id number] ####[facility] [address] [address] Abbi Choudhary M.D. [id number] PERCENT0.40 % [facility] HospitalComment on above:Result Comment: The IG parameter is the percentage of metamyelocytes, myelocytes and promyelocytes.An immature granulocyte count (IG) of 1% or more suggests the possibility of infection, an IG countof 3% is very likely related to an infection.Performed By: #### [id number] ####[facility] [address] [address] Abbi Choudhary M.D. 36 [id number] (Bld) [#/Vol]1.49 10*3/uLNormal0.90-4.00O[facility]wn Psychiatric CenterComment on above:Performed By: #### [id number] ####[facility] [address] [address] Abbi Choudhary M.D. [id number]/100 WBC (Bld) 16.7 %NormalOaklawn Psychiatric CenterComment on above:Performed By: #### [id number] ####[facility] [address] [address]Alisia Choudhary M.D. 36 [id number] (RBC) [Entitic mass]30.5 ndLodlco47.0-34.0[facility] Comment on above:Performed By: #### [id number] ####[facility] [address] [address]Alisia Choudhary M.D. [id number] (RBC) [Entitic vol]88.9 fLNormal 80.0-100.0[facility] Psychiatric CenterComment on above:Performed By: #### [id number] ####[facility] [address] [address] Abbi Choudhary M.D. 36 [id number] CORPUSCULAR HEMOGLOBIN CONC34.3 g/gREqjxwy66.0-37.0[facility] Psychiatric CenterComment on above:Performed By: #### [id number] ####[facility] [address] [address] Abbi Choudhary M.D. [id number] (Bld) [#/Vol] 0.41 10*3/uLNormal0.30-0.90[facility] Psychiatric CenterComment on above:Performed By: #### [id number] ####[facility] [address] [address] Abbi Choudhary M.D. [id number]/100 WBC (Bld)4.6 %NormalOaklawn Psychiatric CenterComment on above:Performed By: #### [id number] ####[facility] [address] [address] Abbi Choudhary M.D. [id number] ABSOLUTE COUNT6.83 K/mcLNormal 1.70-7.00[facility] CenterComment on above:Performed By: #### [id number] ####[facility] [address] [address] Abbi Choudhary M.D. 36 [id number]/100 WBC (Bld)76.8 %[facility] HospitalComment on above:Performed By: #### [id number] ####[facility] [address] [address] Abbi Choudhary M.D. [id number] mean volume (Bld) [Entitic vol]9.7 fLNormal9.4-12.4[facility] CenterComment on above:Performed By: #### [id number] ####[facility] [address] [address] Abbi Choudhary M.D. [id number] (Bld) [#/Vol]283 10*3/lQVypecp845-791EqusozOaklawn Psychiatric Center Comment on above:Performed By: #### [id number] ####[facility] [address] [address] Abbi Choudhary M.D. [id number] (Bld) [#/Vol]3.97 10*6/uLLow 4.00-5.20[facility] Psych[facility] CenterComment on above:Performed By: #### [id number] ####[facility] [address] [address] Abbi Choudhary M.D. 36 [id number] (Bld) [#/Vol]8.90 10*3/uLNormal4.50-11.00[facility] Comment on above:Performed By: #### [id number] ####[facility] [address] [address] Abbi Choudhary M.D. [id number] OF ABUSE SCREEN, URINEon 53-67-2055EOPTFTPACDK SCREEN, URINENot detectedNormalNone DetectedOaklawn Psychiatric CenterComment on above:Order Comment: Screen results should be used for treatment purposes only.Result Comment: Urine Amphetamine Cutoff: < 1000 ng/mL = None DetectedPerformed By: #### [id number] ####[facility] [address] [address] Abbi Choudhary M.D. [id number] SCREEN URINENot detected NormalNone DetectedOaklawn Psychiatric CenterComment on above:Order Comment: Screen results should be used for treatment purposes only.Result Comment: Urine Barbiturates Cutoff: < 200 ng/mL = None DetectedPerformed By: #### [id number] ####[facility] [address] [address] Abbi Choudhary M.D. [id number] BENZODIAZEPINE SCREEN, URINENot detectedNormalNone DetectedOaklawn Psychiatric CenterComment on above:Order Comment: Screen results should be used for treatment purposes only.Result Comment: Urine Benzodiazepine Cutoff: < 200 ng/mL = None DetectedPerformed By: #### [id number] ####[facility] [address] [address] Abbi Choudhary M.D. [id number], URINENot detected NormalNone DetectedOaklawn Psychiatric CenterComsheridan community hospital on above:Order Comment: Screen results should be used for treatment purposes only.Result Comment: Urine Buprenorphine Cutoff: < 5 ng/mL = None DetectedPerformed By: #### [id number] ####[facility] [address] [address] Abbi Choudhary M.D. [id number] CANNABINOID SCREEN URINENot detectedNormalNone DetectedOaklawn Psychiatric Center Comment on above:Order Comment: Screen results should be used for treatment purposes only.Result Comment: Urine Cannabinoids Cutoff: < 50 ng/mL = None DetectedPerformed By: #### [id number] ####[facility] [address] [address] Abbi Choudhary M.D. [id number], SCREEN URINENot detectedNormalNone DetectedOaklawn Psychiatric CenterComment on above:Order Comment: Screen results should be used for treatment purposes only.Result Comment: Urine Cocaine Cutoff: < 300 ng/mL = None DetectedPerformed By: #### [id number] ####[facility] [address] [address] Abbi Choudhary M.D. [id number], URINENot detectedNormalNone DetectedOaklawn Psychiatric CenterComment on above:Order Comment: Screen results should be used for treatment purposes only.Result Comment: Urine Fentanyl Cutoff: < 1 ng/mL = None DetectedPerformed By: #### [id number] ####[facility] [address] [address] Abbi Choudhary M.D. [id number] SCREEN, URINENot detectedNormalNone DetectedOaklawn Psychiatric CenterComment on above:Order Comment: Screen results should be used for treatment purposes only.Result Comment: Urine Methadone Cutoff: < 300 ng/mL = None DetectedPerformed By: #### [id number] ####[facility] [address] [address] Abbi Choudhary M.D. [id number] SCREEN URINENot detected NormalNone DetectedOaklawn Psychiatric CenterComment on above:Order Comment: Screen results should be used for treatment purposes only.Result Comment: Urine Opiates Cutoff: < 300 ng/mL = None DetectedPerformed By: #### [id number] ####[facility] [address] [address] Abbi Choudhary M.D. [id number] SCREEN, URINENot detectedNormalNone DetectedOaklawn Psychiatric CenterComment on above:Order Comment: Screen results should be used for treatment purposes only. Result Comment: Urine Oxycodone Cutoff: < 100 ng/mL = None DetectedPerformed By: #### [id number] ####[facility] [address] [address] Abbi Choudhary M.D. [id number] Prov Noteon 07-54-3129TR Prov NoteNoDeaconess HospitalHEPATIC FUNCTION PANELon 08-72-0277Eyxhruh [Mass/Vol]3.5 g/dLNormal 3.2-5.2MDaviess Community HospitalComment on above:Performed By: #### [id number] ####[facility] [address] [address] Abbi Choudhary M.D. [id number] [Catalytic activity/Vol]107 U/NCrvkbb75-789ChplydOaklawn Psychiatric CenterComment on above:Performed By: #### [id number] ####[facility] [address] [address] Abbi Choudhary M.D. [id number] [Catalytic activity/Vol]11 U/LNormal0-35 U/L [facility] CenterComment on above:Performed By: #### [id number] #### [facility] [address] [address] Abbi Choudhary M.D. [id number] [Catalytic activity/Vol]12 U/LNormal0-35 U/LMDaviess Community HospitalComment on above:Performed By: #### [id number] ####[facility] [address] [address] Abbi Choudhary M.D. [id number] [Mass/Vol]0.3 mg/dLNormal0.0-1.3MDaviess Community HospitalComment on above:Performed By: #### [id number] ####[facility] [address] [address] Abbi Choudhary M.D. [id number] Bilirubin.indirect [Mass/Vol]0.2 mg/dLNormal0.0-0.4[facility] Comment on above:Performed By: #### [id number] ####[facility] [address] [place], [place] [address] Abbi Choudhary M.D. [id number] [Mass/Vol]6.5 g/dLNormal 6.0-8.0[facility] CenterComment on above:Performed By: #### [id number] ####[facility] [address] [place], [place] [address] Abbi Choudhary M.D. [id number] LEVETIRACETAM LEVELon 48-74-0944JYCBLVQVDCSVY<Low6.0-46.0[facility] Comment on above:Performed By: #### [id number] ####[facility] [place], [place] [address] Swapnil Brewer M.D. [id number] 21-54-9244LSDGOVHQ ESTIMATENormalNormalNormalOaklawn Psychiatric CenterComment on above:Performed By: #### [id number] ####[facility] [address] [address] Abbi Choudhary M.D. [id number] MORPH SCAN NormalNormDupont HospitalComment on above:Result Comment: RBC Indices confirmed with manual peripheral smear review.Performed By: #### [id number] ####[facility] [address] [address] Abbi Choudhary M.D. [id number] URINALYSISon 36-98-8539CGYBATIB, URINEFewAbnormalNone SeenOaklawn Psychiatric CenterComment on above:Order Comment: Microscopic examination is performed on all urinalysis samples and only positive findings are reported. The test for blood on the chemical analytic portion of urinalysis may also be positive due to hemoglobinuria and myoglobinuria and if red blood cells are present they are quantified by microscopic examination.Performed By: #### [id number] ####[facility] [address] [address] Abbi Choudhary M.D. [id number], URINE NegativeNormalNegativeOaklawn Psychiatric CenterComment on above:Order Comment: Microscopic examination is performed on all urinalysis samples and only positive findings are reported. The test for blood on the chemical analytic portion of urinalysis may also be positive due to hemoglobinuria and myoglobinuria and if red blood cells are present they are quantified by microscopic examination. Performed By: #### [id number] ####[facility] [address] [address] Abbi Choudhary M.D. [id number], URINESmallAbnormalNegDeKalb Memorial HospitalComment on above:Order Comment: Microscopic examination is performed on all urinalysis samples and only positive findings are reported. The test for blood on the chemical analytic portion of urinalysis may also be positive due to hemoglobinuria and myoglobinuria and if red blood cells are present they are quantified by microscopic examination.Performed By: #### [id number] ####[facility] [address] [address] Abbi Choudhary M.D. [id number] (U)Hazy AbnormalCleSt. Joseph's Hospital of HuntingburgComment on above:Order Comment: Microscopic examination is performed on all urinalysis samples and only positive findings are reported. The test for blood on the chemical analytic portion of urinalysis may also be positive due to hemoglobinuria and myoglobinuria and if red blood cells are present they are quantified by microscopic examination.Performed By: #### [id number] ####[facility] [address] [address] Abbi Choudhary M.D. [id number] (U)YellowNormalColorless, [facility] Comment on above:Order Comment: Microscopic examination is performed on all urinalysis samples and only positive findings are reported. The test for blood on the chemical analytic portion of urinalysis may also be positive due to hemoglobinuria and myoglobinuria and if red blood cells are present they are quantified by microscopic examination.Performed By: #### [id number] ####[facility] [address] [place], [place] [address] Abbi Choudhary M.D. [id number] Ql (U) >=500AbnormalNegDeKalb Memorial HospitalComment on above:Order Comment: Microscopic examination is performed on all urinalysis samples and only positive findings are reported. The test for blood on the chemical analytic portion of urinalysis may also be positive due to hemoglobinuria and myoglobinuria and if red blood cells are present they are quantified by microscopic examination. Performed By: #### [id number] ####[facility] [address] [address] Abbi Choudhary M.D. [id number] casts LM Ql (Urine sed)3-0Uydikg1-8ArqfzgSt. Mary's [facility] on above:Order Comment: Microscopic examination is performed on all urinalysis samples and only positive findings are reported. The test for blood on the chemical analytic portion of urinalysis may also be pos itive due to hemoglobinuria and myoglobinuria and if red blood cells are present they are quantified by microscopic examination.Performed By: #### [id number] ####[facility] [address] [address] Abbi Choudhary M.D. [id number] Ketones Ql (U)NegativeNormalNegDeKalb Memorial HospitalComsheridan community hospital on above: Order Comment: Microscopic examination is performed on all urinalysis samples and only positive findings are reported. The test for blood on the chemical analytic portion of urinalysis may also be positive due to hemoglobinuria and myoglobinuria and if red blood cells are present they are quantified by microscopic examination.Performed By: #### [id number] ####[facility] [address] [address] Abib Choudhary M.D. [id number] esterase Test strip Ql (U)NegativeNormalNegativeOaklawn Psychiatric CenterComsheridan community hospital on above:Order Comment: Microscopic examination is performed on all urinalysis samples and only positive findings are reported. The test for blood on the chemical analytic portion of urinalysis may also be positive due to hemoglobinuria and myoglobinuria and if red blood cells are present they are quantified by microscopic examination.Performed By: #### [id number] ####[facility] [address] [address] Abbi Choudhary M.D. [id number], URINENegativeNormal NegativeParkview Noble Hospital on above:Order Comment: Microscopic examination is performed on all urinalysis samples and only positive findings are reported. The test for blood on the chemical analytic portion of urinalysis may also be positive due to hemoglobinuria and myoglobinuria and if red blood cells are present they are quantified by microscopic examination.Performed By: #### [id number] ####[facility] [address] [address] Abbi Choudhary M.D. [id number] (U)5.0 [pH]Normal5.0-7.0[facility] on above:Order Comment: Microscopic examination is performed on all urinalysis samples and only positive findings are reported. The test for blood on the chemical analytic portion of urinalysis may also be positive due to hemoglobinuria and myoglobinuria and if red blood cells are present they are quantified by microscopic examination.Performed By: #### [id number] ####[facility] [address] [place] [address] Abbi Choudhary M.D. [id number] (U) [Mass/Vol]100 mg/dLAbnormalNegativeParkview Noble Hospital on above:Order Comment: Microscopic examination is performed on all urinalysis samples and only positive findings are reported. The test for blood on the chemical analytic portion of urinalysis may also be positive due to hemoglobinuria and myoglobinuria and if red blood cells are present they are quantified by microscopic examination.Performed By: #### [id number] ####[facility] [address] [address] Abbi Choudhary M.D. [id number] LM.HPF (Urine sed) [#/Area]1 /[HPF]Normal0-3MSt. Mary's Warrick Hospital on above:Order Comment: Microscopic examination is performed on all urinalysis samples and only positive findings are reported. The test for blood on the chemical analytic portion of urinalysis may also be positive due to hemoglobinuria and myoglobinuria and if red blood cells are present they are quantified by microscopic examination. Performed By: #### [id number] ####[facility] [address] [address] Abbi Choudhary M.D. [id number] gravity (U) [Rel density]1.017Normal 1.005-1.025[facility] on above:Order Comment: Microscopic examination is performed on all urinalysis samples and only positive findings are reported. The test for blood on the chemical analytic portion of urinalysis may also be positive due to hemoglobinuria and myoglobinuria and if red blood cells are present they are quantified by microscopic examination.Performed By: #### [id number] #### [facility] [address] [address] Abbi Choudhary M.D. [id number] EPITHELIAL1 /hpfNormal0-4[facility] on above:Order Comment: Microscopic examination is performed on all urinalysis samples and only positive findings are reported. The test for blood on the chemical analytic portion of urinalysis may also be positive due to hemoglobinuria and myoglobinuria and if red blood cells are present they are quantified by microscopic examination.Performed By: #### [id number] ####[facility] [address] [place] [address] Abbi Choudhary M.D. [id number], URINE<2.0Normal<2.0[facility] on above:Order Comment: Microscopic examination is performed on all urinalysis samples and only positive findings are reported. The test for blood on the chemical analytic portion of urinalysis may also be positive due to hemoglobinuria and myoglobinuria and if red blood cells are present they are quantified by microscopic examination. Performed By: #### [id number] ####[facility] [address] [place] [address] Abbi Choudhary M.D. [id number] LM.HPF (Urine sed) [#/Area]6 /[HPF]High0-5[facility]iatric CenterComsheridan community hospital on above:Order Comment: Microscopic examination is performed on all urinalysis samples and only positive findings are reported. The test for blood on the chemical analytic portion of urinalysis may also be pos itive due to hemoglobinuria and myoglobinuria and if red blood cells are present they are quantified by microscopic examination.Performed By: #### [id number] ####[facility] [address] [place] [address] Abbi Choudhary M.D. [id number] METABOLIC PANELon 46-42-1627Uodje gap [Moles/Vol]15 mmol/ZNkzzpb67-21RfilxdParkview Noble Hospital on above:Order Comment: [facility] has implemented the eGFR calculation approach that does not have a coefficient for race that conforms to the NKF-ASN Task Force Recommendations.Performed By: #### [id number] ####[facility] [address] [place], [place] [address] Abbi Choudhary M.D. [id number] [Mass/Vol]9.4 mg/dLNormal8.4-10.2MDaviess Community Hospital Comment on above:Order Comment: [facility] has implemented the eGFR calculation approach that does not have a coefficient for race that conforms to the NKF-ASN Task Force Recommendations.Performed By: #### [id number] ####[facility] [address] [address] Abbi Choudhary M.D. [id number] [Moles/Vol]102 mmol/NUjmclj24-102InutmdParkview Noble Hospital on above:Order Comment: [facility] has implemented the eGFR calculation approach that does not have a coefficient for race that conforms to the NKF-ASN Task Force Recommendations.Performed By: #### [id number] ####[facility] [address] [place], [place] [address] Abbi Choudhary M.D. [id number] [Mass/Vol]1.75 mg/dLHigh0.40-1.10[facility] on above:Order Comment: [facility] has implemented the eGFR calculation approach that does not have a coefficient for race that conforms to the NKF-ASN Task Force Recommendations.Performed By: #### [id number] ####[facility] [address] [place], [place] [address] Abbi Choudhary M.D. [id number] mL/min/1.73 m2Low >=60[facility] on above:Order Comment: [facility] has implemented the eGFR calculation approach that does not have a coefficient for race that conforms to the NKF-ASN Task Force Recommendations. Result Comment: Estimated GFR was calculated using the 2020 CKD-EPI creatinine equation.Performed By: #### [id number] ####[facility] [address] [address] Abbi Choudhary M.D. [id number] [Mass/Vol]237 mg/oIXgvx45-96DiwnqjSt. Mary's Warrick Hospital on above:Order Comment: [facility] has implemented the eGFR calculation approach that does not have a coefficient for race that conforms to the NKF-ASN Task Force Recommendations.Performed By: #### [id number] ####[facility] [address] [address] Abbi Choudhary M.D. [id number] (Bld) [Moles/Vol]23 mmol/DCasgis43-02KaphcsOaklawn Psychiatric Center Comment on above:Order Comment: [facility] has implemented the eGFR calculation approach that does not have a coefficient for race that conforms to the NKF-ASN Task Force Recommendations.Performed By: #### [id number] ####[facility] [address] [address] Abbi Choudhary M.D. [id number] [Moles/Vol]3.7 mmol/LNormal3.5-5.1MSt. Mary's Warrick Hospital on above:Order Comment: [facility] has implemented the eGFR calculation approach that does not have a coefficient for race that conforms to the NKF-ASN Task Force Recommendations.Performed By: #### [id number] ####[facility] [address] [address] Abbi Choudhary M.D. [id number] [Moles/Vol]136 mmol/LZlhejk201-279JhavmdParkview Noble Hospital on above:Order Comment: [facility] has implemented the eGFR calculation approach that does not have a coefficient for race that conforms to the NKF-ASN Task Force Recommendations.Performed By: #### [id number] ####[facility] [address] [address] Abbi Choudhary M.D. [id number] nitrogen [Mass/Vol] 26 mg/dLWetzel County Hospital8-25[facility] on above:Order Comment: [facility] has implemented the eGFR calculation approach that does not have a coefficient for race that conforms to the NKF-ASN Task Force Recommendations.Performed By: #### [id number] ####[facility] [address] [address] Abbi Choudhary M.D. [id number] nitrogen/Creatinine [Mass ratio]14.9 mg/qeXxpvhk33.0-20.0[facility] Psychiatric CenterComment on above:Order Comment: [facility] has implemented the eGFR calculation approach that does not have a coefficient for race that conforms to the NKF-ASN Task Force Recommendations.Performed By: #### [id number] ####[facility] [address] [place] [address] Abbi Choudhary M.D. [id number] WITH AUTO DIFFERENTIALon 51-68-0245VRGR NRBC0.0 %[facility] HospitalComment on above:Performed By: #### [id number] ####[facility] [address] [place] [address] Abbi Choudhary M.D. [id number] NRBC ABS COUNT0.00 K/mcLNormal0.00-0.00 [facility] CenterComment on above:Performed By: #### [id number] ####[facility] [address] [place] [address] Abbi Choudhary M.D. [id number] ABSOLUTE COUNT0.05 K/mcLNormal0.00-0.30[facility] CenterComment on above: Performed By: #### [id number] ####[facility] [address] [place] [address] Abbi Choudhary M.D. [id number]/100 WBC (Bld)0.5 %[facility] HospitalComment on above:Performed By: #### [id number] ####[facility] [address] [place] [address] Abbi Choudhary M.D. [id number] (Bld) [#/Vol] 0.19 10*3/uLNormal0.00-0.50[facility] CenterComment on above:Performed By: #### [id number] ####[facility] [address] [place] [address] Abbi Choudhary M.D. [id number]/100 WBC (Bld)2.1 %[facility] Comment on above:Performed By: #### [id number] ####[facility] [address] [place] [address] Abbi Choudhary M.D. [id number] distribution width (RBC) [Ratio]12.6 %Nnsxed44.6-14.8[facility] CenterComment on above: Performed By: #### [id number] ####[facility] [address] [place] [address] Abbi Choudhary M.D. [id number] (Bld) [Volume fraction]33.5 %Low 36.0-46.0[facility] CenterComment on above:Performed By: #### [id number] ####[facility] [address] [place] [address] Abbi Choudhary M.D. 36 [id number] (Bld) [Mass/Vol]11.6 g/dLLow12.0-16.0[facility] Comment on above:Performed By: #### [id number] ####[facility] [address] [place] [address] Abbi Choudhary M.D. [id number] ABSOLUTE0.07 K/mcLNormal 0.00-0.30[facility] CenterComment on above:Performed By: #### [id number] ####[facility] [address] [place] [address] Abbi Choudhary M.D. 36 [id number] PERCENT0.80 %[facility] HospitalComment on above:Result Comment: The IG parameter is the percentage of metamyelocytes, myelocytes and promyelocytes.An immature granulocyte count (IG) of 1% or more suggests the possibility of infection, an IG countof 3% is very likely related to an infection.Performed By: #### [id number] ####[facility] [address] [place] [address] Abbi Choudhary M.D. [id number] (Bld) [#/Vol]2.26 10*3/uLNormal0.90-4.00[facility] HospitalComment on above:Performed By: #### [id number] ####[facility] [address] [place] [address] Abbi Choudhary M.D. [id number]/100 WBC (Bld)24.4 %[facility] HospitalComment on above:Performed By: #### [id number] ####[facility] [address] [place] [address] Abbi Choudhary M.D. [id number] (RBC) [Entitic mass]30.4 pgNormal 26.0-34.0[facility] HospitalComment on above:Performed By: #### [id number] ####[facility] [address] [place] [address] Abbi Choudhary M.D. 36 [id number] (RBC) [Entitic vol]87.7 jIRxkyow36.0-100.0[facility] Comment on above:Performed By: #### [id number] ####[facility] [address] [place] [address] Abbi Choudhary M.D. [id number] CORPUSCULAR HEMOGLOBIN CONC34.6 g/bJRrorru67.0-37.0[facility] CenterComment on above:Performed By: #### [id number] ####[facility] [address] [place] [address] Abbi Choudhary M.D. [id number] (Bld) [#/Vol]0.54 10*3/uLNormal0.30-0.90[facility] CenterComment on above:Performed By: #### [id number] ####[facility] [address] [place] [address] Abbi Choudhary M.D. [id number]/100 WBC (Bld) 5.8 %NormalGood Samaritan Hospital HospitalComment on above:Performed By: #### [id number] ####[facility] [address] [place] [address] Abbi Choudhary M.D. 36 [id number] ABSOLUTE COUNT6.15 K/mcLNormal1.70-7.00[facility] CenterComment on above:Performed By: #### [id number] ####[facility] [address] [place] [address] Abbi Choudhary M.D. [id number]/100 WBC (Bld) 66.4 %NormalOaklawn Psychiatric CenterComment on above:Performed By: #### [id number] ####[facility] [address] [place] [address] Abbi Choudhary M.D. 36 [id number] mean volume (Bld) [Entitic vol]9.2 fLLow9.4-12.4[facility] CenterComment on above:Performed By: #### [id number] ####[facility] [address] [place] [address] Abbi Choudhary M.D. [id number] (Bld) [#/Vol] 290 10*3/sNVhxcvr323-943DdayyaOaklawn Psychiatric CenterComment on above:Performed By: #### [id number] ####[facility] [address] [place] [address] Abbi Choudhary M.D. [id number] (Bld) [#/Vol]3.82 10*6/uLLow4.00-5.20[facility] Comment on above:Performed By: #### [id number] ####[facility] [address] [place] [address] Abbi Choudhary M.D. [id number] (Bld) [#/Vol]9.26 10*3/uLNormal 4.50-11.00[facility] CenterComment on above:Performed By: #### [id number] ####[facility] [address] [place] [address] Abbi Choudhary M.D. 36 [id number] Prov Noteon 05-99-9289OI Prov NoteNoDeaconess Hospital TROPONIN X 2 (NOW AND REPEAT IN 2 HOURS)on 33-18-3194JASDFYKG TROPONIN T NG/L24 ng/LOff scale high<=14[facility] CenterComment on above:Performed By: #### [id number] ####[facility] [address] [place], [place] [address] Abbi Choudhary M.D. [id number] T INTERPRETATIONPossible acute cardiac injury.[facility] HospitalComment on above:Performed By: #### [id number] ####[facility] [address] [place], [place] [address] Abbi Choudhary M.D. [id number] ANKLE LEFT 3+ VIEWS (STANDARD)on 85-49-7444LU ANKLE LEFT 3+ VIEWS (STANDARD)[facility] HospitalComment on above:Order Comment: Injury/Trauma or Illness?:Injury/TraumaHow long have you had these symptoms (acute/ch ronic)?:AcuteReason for exam?:ankle painHistory of cancer?:uSurgeries, chemotherapy, or radiation?:pacemakerType of Exam?:InitialMechanism of injury?:fallXR CHEST PA/APon 86-95-8018WM CHEST PA/APNoDeaconess HospitalComment on above:Order Comment: Injury/Trauma or Illness?:Illness/OtherHow long have you had these symptoms (acute/ch ronic)?:AcuteReason for exam?:chest painHistory of cancer?:uSurgeries, chemotherapy, or radiation?:pacemakerType of Exam?:InitialAdditional signs and symptoms?:naXR KNEE LEFT 2 VIEWS (STANDARD)on 07-03-7398UU KNEE LEFT 2 VIEWS (STANDARD)[facility] HospitalComment on above:Order Comment: Injury/Trauma or Illness?:Injury/TraumaHow long have you had these symptoms (acute/chronic)?:AcuteReason for exam?:knee painHistory of cancer?:uSurgeries, chemotherapy, or radiation?:pacemakerType of Exam?:InitialMechanism of injury?:fallUrgent Care Clinic Visiton 78-30-4158Dxaxjz [place] [address] - [address] JE[address] BAPTISTE 1975 (49 F) [id number] Verena Kuhn [facility] Report #: [id number] (Signed) PCP: No Doctor Urgent Care Clinic [...] coming to . Reports cut finger on restaurant lead. Associated Symptoms: bleeding, controlled Date of Onset (approx): 08/29/24 Time of Onset (approx): 17:30 [address] of Occurrence: home Context: accidental and sharp object use Improves With: applying pressure Worsens With: movement Treatment THERAPY TECH: none Provider HPI Details Patient presents today [...] no runny nose Card (more content not included)...[facility] (INCLUDES DIFF/PLT)on 69-12-0528Venshqgbt (Bld) [#/Vol]0.093 10*3/uLNormal0-200Quest DiagnosticsComment on above:Performed By: #### 80920, 90307, 866, 899, 496, 6399, 57533 #### [facility] [address], [address] [place] [address] [employer]: Dean Maddox MDBasophils/100 WBC (Bld)0.8 %NormalQuest DiagnosticsComment on above:Performed By: #### 17065, 79187, 866, 899, 496, 6399, 16600 #### [facility] [place] [address] [place] , [address] [place] [address] [employer]: Dean Maddox MDEosinophils (Bld) [#/Vol]0.22 10*3/uLNormal 15-500Quest DiagnosticsComment on above:Performed By: #### 92837, 31198, 866, 899, 496, 6399, 46440 #### [facility] [place] [address] [place] , [address] [place] [address] [employer]: Dean Maddox MDEosinophils/100 WBC (Bld)1.9 %NormalQuest DiagnosticsComment on above:Performed By: #### 42718, 09826, 866, 899, 496, 6399, 87416 #### [facility] [place] [address] [employer]: Dean Maddox MDErythrocyte distribution width (RBC) [Ratio] 12.8 %Mwkdvu25.0-15.0Quest DiagnosticsComment on above:Performed By: #### 24262, 50621, 866, 899, 496, 6399, 51338 #### [facility] [place] [address] [employer]: Dean Maddox MDHematocrit (Bld) [Volume fraction]41.1 %Normal 35.0-45.0Quest DiagnosticsComment on above:Performed By: #### 59286, 29082, 866, 899, 496, 6399, 85418 #### [facility] [place] [address] [employer]: Dean Maddox MDHemoglobin (Bld) [Mass/Vol]13.8 g/dLNormal 11.7-15.5Quest DiagnosticsComment on above:Performed By: #### 60472, 24796, 866, 899, 496, 6399, 07210 #### [facility] [place] [address] [employer]: Dean Maddox MDLymphocytes (Bld) [#/Vol]2.401 10*3/uLNormal 850-3900Quest DiagnosticsComment on above:Performed By: #### 78665, 21781, 866, 899, 496, 6399, 00890 #### [facility] [place] [address] [employer]: Dean Maddox MDLymphocytes/100 WBC (Bld)20.7 %NormalQuest DiagnosticsComment on above:Performed By: #### 97191, 00602, 866, 899, 496, 6399, 16970 #### [facility] of [address], [address] [place] [address] [employer]: Dean JUAREZCH (RBC) [Entitic mass]30.1 beTezojl20.0-33.0 Quest DiagnosticsComment on above:Performed By: #### 84630, 96504, 866, 899, 496, 6399, 44337 #### [facility] of [address], [address] [place] [address] [employer]: Dean JUAREZCHC (RBC) [Mass/Vol]33.6 g/mYIenrqn11.0-36.0 [facility] DiagnosticsComment on above:Result Comment: For adults, a slight decrease in the calculated MCHC value (in the range of 30 to 32 g/dL) is most likely not clinically significant; however, it should be interpreted with caution in correlation with other red cell parameters and the patient's clinical condition.Performed By: #### 07870, 23279, 866, 899, 496, 6399, 33463 #### [facility] of [place] [address] [employer]: Dean JUAREZCV (RBC) [Entitic vol]89.7 mHOovhmt23.0-100.0 [facility] DiagnosticsComment on above:Performed By: #### 97530, 92076, 866, 899, 496, 6399, 56739 #### [facility] of [address], [address] [place], [place] [address] [employer]: Dean Maddox MDMonocytes (Bld) [#/Vol]0.661 10*3/uLNormal 200-950Quest DiagnosticsComment on above:Performed By: #### 71332, 30423, 866, 899, 496, 6399, 72906 #### [facility] of [address] [place] [address] [employer]: Dean Maddox MDMonocytes/100 WBC (Bld)5.7 %NormalQuest DiagnosticsComment on above:Performed By: #### 18458, 82226, 866, 899, 496, 6399, 67074 #### [facility] of [place] [address], [address] [place] [address] [employer]: Dean Maddox MDNeutrophils (Bld) [#/Vol]8.224 10*3/uLHigh 1500-7800Quest DiagnosticsComment on above:Performed By: #### 97555, 27917, 866, 899, 496, 6399, 19559 #### [facility] of [facility] [address] , [address] [place] [address] [employer]: Dean Maddox MDNeutrophils/100 WBC (Bld)70.9 %NormalQuest DiagnosticsComment on above:Performed By: #### 26193, 22029, 866, 899, 496, 6399, 87863 #### [facility] of [place] [address], [address] [place] [address] [employer]: Dean Maddox MDPlatelet mean volume (Bld) [Entitic vol]8.9 fL Normal7.5-12.5Quest DiagnosticsComment on above:Performed By: #### 64986, 62133, 866, 899, 496, 6399, 62548 #### [facility] of [facility] [address], [address] [place] [address] [employer]: Dean Maddox MDPlatelets (Bld) [#/Vol]404 10*3/xGQhjl878-825 Quest DiagnosticsComment on above:Performed By: #### 22855, 79785, 866, 899, 496, 6399, 10811 #### [facility] of [place] [address], [address] [place] [address] [employer]: Dean Maddox MDRBC (Bld) [#/Vol]4.58 10*6/uLNormal3.80-5.10 [facility] DiagnosticsComment on above:Performed By: #### 74622, 29986, 866, 899, 496, 6399, 68378 #### [facility] [address] [facility], [address] [place] [address] [employer]: Dean Maddox MDBC (Bld) [#/Vol]11.6 10*3/uLHigh3.8-10.8Quest DiagnosticsComment on above:Performed By: #### 07815, 14716, 866, 899, 496, 6399, 56526 #### [facility] [address] [facility], [address] [place] [address] [employer]: Dean Maddox [facility] Auto Differentialon 39-03-8030Ngdsnqpgb (Bld) [#/Vol]93 10*3/uLOhioHealthBasophils/100 WBC (Bld)0.8 %[facility] Eosinophils (Bld) [#/Vol]220 10*3/uLOhioHealthEosinophils/100 WBC (Bld)1.9 % [facility] HospitalErythrocyte distribution width (RBC) [Ratio]12.8 %11.0 - 15.0 % [facility] HospitalHematocrit (Bld) [Volume fraction]41.1 %35.0 - 45.0 %[facility] Hemoglobin (Bld) [Mass/Vol]13.8 g/dL11.7 - 15.5 g/dLOhioHealthInterpretation and review of laboratory resultsAbnormalOhioHealthLymphocytes (Bld) [#/Vol]2401 10*3/uLOhioHealthLymphocytes/100 WBC (Bld)20.7 %[facility] HospitalMCH (RBC) [Entitic mass]30.1 pg27.0 - 33.0 [...] (Bld)5.7 %OhioHealthNeutrophils (Bld) [#/Vol]8224 10*3/uLHighOhioHealthNeutrophils/100 WBC (Bld)70.9 %[facility] Platelet mean volume (Bld) [Entitic vol]8.9 fL7.5 - 12.5 fLOhioHealthPlatelets (Bld) [#/Vol]404 10*3/uLHighOhioHealthRBC (Bld) [#/Vol]4.58 10*6/uLOhioHealthWBC (Bld) [#/Vol]11.6 10*3/uLHighOhioHealthOhioHealthCOMPREHENSIVE METABOLIC PANEL W/ANION GAPon 87-54-6905Mvdfuli [Mass/Vol]4.1 g/dLNormal3.6-5.1[facility] Comment on above:Performed By: #### 99960, 85513, 866, 899, 496, 6399, 86912 #### [facility] [address] [employer]: Dean Maddox MDALP [Catalytic activity/Vol]98 U/CEoytnl64-401 [facility] DiagnosticsComment on above:Performed By: #### 15222, 57097, 866, 899, 496, 6399, 66934 #### [facility] [address] [employer]: Dean Maddox MDALT [Catalytic activity/Vol]11 U/LNormal6-29 [facility] DiagnosticsComment on above:Performed By: #### 15664, 50613, 866, 899, 496, 6399, 23999 #### [facility] [address] [place] [address] [employer]: Dean Maddox MDAST [Catalytic activity/Vol]10 U/KUfbdyn91-14 [facility] DiagnosticsComment on above:Performed By: #### 67753, 12573, 866, 899, 496, 6399, 47863 #### [facility] of [place] [address] [employer]: Dean Maddox MDBilirubin [Mass/Vol]0.4 mg/dLNormal0.2-1.2 [facility] DiagnosticsComment on above:Performed By: #### 86366, 18089, 866, 899, 496, 6399, 93686 #### [facility] of [place] [address] [employer]: Dean Maddox MDCalcium [Mass/Vol]9.6 mg/dLNormal8.6-10.2Quest DiagnosticsComment on above:Performed By: #### 77901, 68892, 866, 899, 496, 6399, 62329 #### [facility] of [place] [address] [employer]: Dean Maddox MDChloride [Moles/Vol]105 mmol/NKbcfvj84-408 [facility] DiagnosticsComment on above:Performed By: #### 42403, 95628, 866, 899, 496, 6399, 87228 #### [facility] of [place] [address] [employer]: Dean Maddox MDCO2 [Moles/Vol]20 mmol/GCeoulj62-90Oubiq DiagnosticsComment on above:Performed By: #### 83845, 97029, 866, 899, 496, 6399, 18225 #### [facility] of [place] [address] [employer]: Dean Maddox MDCreatinine [Mass/Vol]1.30 mg/dLHigh0.50-0.99 [facility] DiagnosticsComment on above:Performed By: #### 02272, 45234, 866, 899, 496, 6399, 45190 #### [facility] [address], [address] [place] [address] [employer]: Dean Maddox MDELECTROLYTE LVNRDXK78 mmol/L (calc)Normal7-17 Quest DiagnosticsComment on above:Performed By: #### 31832, 32011, 866, 899, 496, 6399, 42932 #### [facility] [address], [address] [place] [address] [employer]: Dean Maddox MDGFR/1.73 sq M.predicted among non-blacks MDRD (S/P/Bld) [Vol rate/Area]51 mL/min/{1.73_m2}Low> OR = 60Quest DiagnosticsComment on above:Performed By: #### 38219, 44149, 866, 899, 496, 6399, 18022 #### [facility] [address], [address] [place] [address] [employer]: Dean Maddox MDGlucose [Mass/Vol]214 mg/fMEpnq45-72Pafvo DiagnosticsComment on above:Result Comment: Fasting reference interval For someone without known diabetes, a glucose value >125 mg/dL indicates that they may have diabetes and this should be confirmed with a follow-up test.Performed By: #### 20622, 08211, 866, 899, 496, 6399, 71214 #### [facility] [address], [address] [place] [address] [employer]: Dean Maddox MDPotassium [Moles/Vol]4.9 mmol/LNormal3.5-5.3 [facility] DiagnosticsComment on above:Performed By: #### 76609, 54253, 866, 899, 496, 6399, 23549 #### [facility] [address], [address] [place] [address] [employer] Superintendent: Dean Maddox MDProtein [Mass/Vol]7.0 g/dLNormal6.1-8.1Quest DiagnosticsComment on above:Performed By: #### 72318, 40840, 866, 899, 496, 6399, 97198 #### [facility] [address], [address] [place] [address] [employer]: Dean Maddox MDSodium [Moles/Vol]136 mmol/XPuqmdt341-040Tbiho DiagnosticsComment on above:Performed By: #### 94931, 65924, 866, 899, 496, 6399, 19946 #### [facility] [address], [address] [place] [address] [employer] Superintendent: Dean Maddox MDUrea nitrogen [Mass/Vol]30 mg/dLHigh7-25Quest DiagnosticsComment on above:Performed By: #### 06367, 96603, 866, 899, 496, 6399, 15895 #### [facility] [address], [address] [place] [address] [employer] Superintendent: Dean Maddox MDComprehensive metabolic 2000 panelon 15-87-3938Fpanoal [Mass/Vol]4.1 g/dL3.6 - 5.1 g/dLOhioHealthALP [Catalytic activity/Vol]98 [...] (S/P/Bld) [Vol rate/Area]51 mL/min/{1.73_m2}Low> OR = 60 mL/min/1.57f4JdgaCeytxwRqvzkel [Mass/Vol]214 mg/dL High65 - 99 mg/dLOhioHealthComment on above: Fasting reference interval For someone without known diabetes, a glucose value >125 mg/dL indicates that they may have diabetes and this should be confirmed with a follow-up test. Potassium [Moles/Vol]4.9 mmol/L3.5 - 5.3 mmol/LOhioHealthProtein [Mass/Vol]7 g/dL6.1 - 8.1 g/dLOhioHealthSodium [Moles/Vol]136 mmol/L135 - 146 mmol/L OhioHealthUrea nitrogen [Mass/Vol]30 mg/dLHigh7 - 25 mg/dLOhioHealthHEMOGLOBIN A1con 39-33-1395HFCRNWSTOF A1c10.6 % of total HgbHigh<5.7[facility] Comment [...] diagnosis of diabetes for children.Performed By: #### 20342, 79674, 866, 899, 496, 6399, 33032 #### [facility] [address], [address] [place] [address] [employer]: Dean Whyte AB W/REFL TO HCV RNA, QN, PCRon 23-30-1624AIAGJGLNQ C ANTIBODYNormalQuest DiagnosticsComment on above:Performed By: #### 39579, 20539, 866, 899, 496, 6399, 74816 #### [facility] [address], [address] [place] [address] [employer] Superintendent: Dean Maddox MDHIV 1/2 ANTIGEN/ANTIBODY,FOURTH GENERATION W/RFLon 08-54-9956RDU AG/AB, 4TH GENNormalQuest DiagnosticsComment on above: Performed By: #### 43448, 60512, 866, 899, 496, 6399, 35742 #### [facility] [address], [address] [place] [address] [employer] Superintendent: Dean Maddox MDHIV Antibody (HIV1/HIV2)on 62-74-9578GCG 1+2 Ab+HIV1 p24 Ag IA YaLyj-CcarsxsjFTS-ZKXZBGZRYjrlLuqricMjydlkb on above:HIV-1 antigen and HIV-1/HIV-2 antibodies were [...] purpose. For additional information please refer to http://education.[employer]/faq/LKR202 (This link is being provided for informational/ educational purposes only.) The performance of this assay has not been clinically validated in patients less than 2 years old. HbA1c (Bld) [Mass fraction]on 37-35-2650Aqlowgdiupymie and review of laboratory resultsAbnormalOhioHealthOhioHealthHemoglobin A1con 84-95-7454GwH1v (Bld) [Mass fraction]10.6 %HighNINFOhioHealthComment on above:For someone [...] Ab with Reflex to HCV Virus Quantitationon 48-01-0540HUI Ab IA Ql Svl-LptkyigvFTM-MCOGHVHKGmenZdmdbkMavqink on above: HCV antibody was non-reactive. There is no laboratory evidence of HCV infection. In most cases, no further action is required. However, if recent HCV exposure is suspected, a test for HCV RNA (test code 80309) is suggested. For additional information please refer to http://[employer]/faq/JIX05c9 (This link is being provided for informational/ educational purposes only.) LIPID PANEL WITH REFLEX TO DIRECT LDLon 36-86-6620Bwbnpgtszxk [Mass/Vol]232 mg/dLHigh<200Quest DiagnosticsComment on above:Performed By: #### 36678, 22150, 866, 899, 496, 6399, 21703 #### [facility] [address], [address] [place], [place] [address] [employer] Superintendent: Dean Maddox MDCholesterol in HDL [Mass/Vol]58 mg/dLNormal> OR = 50Quest DiagnosticsComment on above:Performed By: #### 56758, 72406, 866, 899, 496, 6399, 76040 #### [facility] [address], [address] [place], [place] [address] [employer] Superintendent: Dean Maddox MDCholesterol in LDL [Mass/Vol]144 mg/dLHigh [...] LDL-C. Antoine GREGG et al. CHOLO. 2013;310(19): 4345-2407 (http://education.[employer]/faq/CTF002)Performed By: #### 14773, 11738, 866, 899, 496, 6399, 55402 #### [facility] [address], [address] [place] [address] [employer] Superintendent: Dean GUARDADOholesterothuy.total/Cholesterol in HDL [Mass ratio]4.0 {ratio}Normal<5.0Quest DiagnosticsComment on above:Performed By: #### 79335, 44959, 866, 899, 496, 6399, 36934 #### [facility] [address], [address] [place] [address] [employer] Superintendent: Dean BOLTON HDL GZCLURFDGLU534 mg/dL (calc)High<130 Quest DiagnosticsComment on above:Result Comment: For patients with diabetes plus 1 major ASCVD risk factor, treating to a non-HDL-C goal of <100 mg/dL (LDL-C of <70 mg/dL) is considered a therapeutic option.Performed By: #### 65841, 25185, 866, 899, 496, 6399, 07936 #### [facility] [place] [address] [employer]: Dean Maddox MDTriglyceride [Mass/Vol]167 mg/dLHigh<150Quest DiagnosticsComment on above:Performed By: #### 78380, 49618, 866, 899, 496, 6399, 82523 #### [facility] [address], [address] [place] [address] [employer] Superintendent: Dean Maddox MDLipid 1996 panelon 58-67-5158Dkxvbngjqph [Mass/Vol]232 mg/dLHighNINF - 200 mg/dLOhioHealthCholesterol in HDL [...] LDL-C. Antoine GREGG et al. CHOLO. 2013;310(19): 2807-9237 (http://education.[employer]/faq/ZXL567) Cholesterol non HDL [Mass/Vol]174 mg/dLHighNINFOhioHealthComment on above:For patients with diabetes plus 1 major ASCVD risk factor, treating to a non-HDL-C goal of <100 mg/dL (LDL-C of <70 mg/dL) is considered a therapeutic option. Cholesterol.total/Cholesterol in HDL [Mass ratio]4 {ratio}NINFOhioHealth Triglyceride [Mass/Vol]167 mg/dLHighNINF - 150 mg/dLOhioHealthNo Panel Information 60-41-0476LfcdPfspseOeczyouseukmko and review of laboratory resultsAbnormalOhioHealthOhioHealthOhioHealthT4, [facility] 72-22-6761Caxb T4 [Mass/Vol]0.9 ng/dLNormal0.8-1.8Quest DiagnosticsComment on above:Performed By: #### [id number], 23348, 866, 899, 496, 6399, 95873 #### [place] [address] [place] Alarm Superintendent: Dean Maddox MDT4, [facility] 16-94-9252Dvcn T4 [Mass/Vol]0.9 ng/dL0.8 - 1.8 ng/dLMercy Health St. [facility] 52-97-5181PKE Qn3.54 m[IU]/LNormalQuest DiagnosticsComment on above:Result Comment: Reference Range > or = 20 Years 0.40-4.50 Ranges First trimester 0.26-2.66 Second trimester 0.55-2.73 Third trimester 0.43-2.91Performed By: #### [id number], 37175, 866, 899, 496, 6399, 15777 #### [facility] [place] [id number] [place] Alarm Superintendent: Dean Maddox MDMULTICARE [facility]URN [facility] DL <= 0.005 mIU/L Qnon 41-20-4764YCS Qn 3.54 m[IU]/LmIU/LOhioHealthComment on above:Reference Range > or = 20 Years 0.40-4.50 Ranges First trimester 0.26-2.66 Second trimester 0.55-2.73 Third trimester 0.43-2.91 XR KNEES BILATERAL 2 VIEWS EACH (STANDARD)on 56-18-0418FI KNEES BILATERAL 2 VIEWS EACH (STANDARD)[facility] HospitalComment on above:Order Comment: Injury/Trauma or Illness?:Illness/OtherHow long have you had these symptoms (acute/chronic)?:UnknownReason for exam?:Bilateral knee painHistory of cancer?:uSurgeries, chemotherapy, or radiation?:pacemakerType of Exam?:UnknownAdditional signs and symptoms?:noneED Prov Noteon [id number] Prov NoteNoDeaconess HospitalXR HAND LEFT 3+ VIEWS (STANDARD)on 05-23-2024 XR HAND LEFT 3+ VIEWS (STANDARD)[facility] HospitalComment on above: Order Comment: Injury/Trauma or Illness?:Illness/OtherHow long have you had these symptoms (acute/chronic)?:AcuteReason for exam?:Lt hand pain with swellingHistory of cancer?:uSurgeries, chemotherapy, or radiation?:pacemakerType of Exam?:InitialAdditional signs and symptoms?:Lt hand pain with swellingCBCon 21-87-9311TKSB NRBC0.0 %[facility] HospitalComment on above:Performed By: #### [id number] ####[facility] [address] [place], [place] [address] Abbi Choudhary M.D. [id number] NRBC ABS COUNT0.00 K/mcLNormal0.00-0.00[facility] Psychiatric CenterComment on above:Performed By: #### [id number] ####[facility] [address] [place], [place] [address] Abbi Choudhary M.D. [id number] distribution width (RBC) [Ratio]13.4 %Dewdth70.6-14.8O[facility] Psychiatric CenterComment on above: Performed By: #### [id number] ####[facility] [address] [place] [address] Abbi Choudhary M.D. [id number] (Bld) [Volume fraction]29.3 %Low36.0-46.0 [facility] CenterComment on above:Performed By: #### 06973 ####[facility] [address] [place] [address] Abbi Choudhary M.D. [id number] (Bld) [Mass/Vol]9.6 g/dLLow12.0-16.0O[facility] Psych[facility] CenterComment on above: Performed By: #### [id number] ####[facility] [address] [place] [address] Abbi Choudhary M.D. [id number] (RBC) [Entitic mass]31.0 xnLmamgu47.0-34.0[facility] CenterComment on above:Performed By: #### 81376 ####[facility] [address] [place] [address] Abbi Choudhary M.D. [id number] (RBC) [Entitic vol]94.5 jNOnsisr80.0-100.0[facility] Psych[facility] CenterComment on above: Performed By: #### 96676 ####[facility] [address] [place] [address] Abbi Choudhary M.D. [id number] CORPUSCULAR HEMOGLOBIN CONC32.8 g/dLNormal 31.0-37.0[facility] Psych[facility] CenterComment on above:Performed By: #### 05775 ####[facility] [address] [place] [address] Abbi Choudhary M.D. 36D0 224002Qfyrbrab mean volume (Bld) [Entitic vol]9.7 fLNormal9.4-12.4[facility] Psych[facility] CenterComment on above:Performed By: #### 59769 ####[facility] [address] [place] [address] Abbi Choudhary M.D. [id number] (Bld) [#/Vol]289 10*3/uKFlxind239-603EbmkclOaklawn Psychiatric CenterComment on above:Performed By: #### 86962 ####[facility] [address] [place], [place] [address] Abbi Choudhary M.D. [id number] (Bld) [#/Vol]3.10 10*6/uLLow4.00-5.20[facility] Comment on above:Performed By: #### 14865 ####[facility] [address] [place] [address] Abbi Choudhary M.D. [id number] (Bld) [#/Vol]6.78 10*3/uLNormal 4.50-11.00[facility] Psych[facility] CenterComment on above:Performed By: #### 23278 ####[facility] [address] [place] [address] Abbi Choudhary M.D. 36D0 344159ECL panel Auto (Bld)on 50-69-7458Fekpgqdpaci distribution width (RBC) [Entitic vol]13.4 %11.6 - [...] [#/Vol] 3.1 10*6/uLLowOhioHealthWBC (Bld) [#/Vol]6.78 10*3/uLOhioHealthOhioHealthDisch Summon 28-49-6773Gpmse Putnam County HospitalGlucose (Bld) [Mass/Vol] on 99-40-1654Bzdhlpn [Mass/Vol]240 mg/xXWaua59 - 99 mg/dLOhioOhio Valley Surgical Hospital Interpretation and review of laboratory resultsAbnoOhioHealth [facility] Glucose [Mass/Vol]340 mg/mRUqss44 - 99 mg/dLNvioHealthInterpretation and review of laboratory resultsAbnoOhioHealth [facility]ering[facility] Methodist HospitalPOC GLUCOSE - [facility]on 04-29-2024 Glucose [Mass/Vol]240 mg/oZJxad93-67PsitngDaviess Community HospitalComment on above: Performed By: #### [id number] #### LAB [address] [place] [address] Abbi Choudhary M.D. [id number] [Mass/Vol]340 mg/bQWpnt78-93TgrvqhDaviess Community HospitalComment on above:Performed By: #### 05740 ####[facility] [address] [place] [address] Abbi Choudhary M.D. [id number] FUNCTION PANELon 77-01-5955Pnfvaid [Mass/Vol]3.2 g/dLNormal3.2-5.2MDaviess Community HospitalComment on above:Order Comment: [facility] has implemented the eGFR calculation approach that does not have a coefficient for race that conforms to the NKF-ASN Task Force Recommendations.Performed By: #### 50943 ####[facility] [address] [place] [address] Abbi Choudhary M.D. [id number] gap [Moles/Vol]15 mmol/PZqghev42-46HudyfkOaklawn Psychiatric CenterComment on above:Order Comment: [facility] has implemented the eGFR calculation approach that does not have a coefficient for race that conforms to the NKF-ASN Task Force Recommendations.Performed By: #### [id number] ####[facility] [address] [place], [place] [address] Abbi Choudhary M.D. [id number] [Mass/Vol]8.5 mg/dLNormal8.4-10.2MSt. Mary's Warrick Hospital on above:Order Comment: [facility] has implemented the eGFR calculation approach that does not have a coefficient for race that conforms to the NKF-ASN Task Force Recommendations.Performed By: #### 21551 ####[facility] [address] [place], [place] [address] Abbi Choudhary M.D. [id number] [Moles/Vol]104 mmol/L Ealgof86-593ScoslgParkview Noble Hospital on above:Order Comment: [facility] has implemented the eGFR calculation approach that does not have a coefficient for race that conforms to the NKF-ASN Task Force Recommendations.Performed By: #### [id number] ####[facility] [address] [place], [place] [address] Abbi Choudhary M.D. [id number] [Mass/Vol]1.72 mg/dLHigh 0.40-1.10[facility] on above:Order Comment: [facility] has implemented the eGFR calculation approach that does not have a coefficient for race that conforms to the NKF-ASN Task Force Recommendations.Performed By: #### 07999 ####[facility] [address] [place], [place] [address] Abbi Choudhary M.D. [id number] mL/min/1.73 m2Low>=60[facility] on above:Order Comment: [facility] has implemented the eGFR calculation approach that does not have a coefficient for race that conforms to the NKF-ASN Task Force Recommendations.Result Comment: Estimated GFR was calculated using the 2020 CKD-EPI creatinine equation. Performed By: #### 41554 ####[facility] [address] [place], [place] [address] Abbi Choudhary M.D. [id number] [Mass/Vol]358 mg/vKNbyp79-94XmeijpSt. Mary's Warrick Hospital on above:Order Comment: [facility] has implemented the eGFR calculation approach that does not have a coefficient for race that conforms to the NKF-ASN Task Force Recommendations.Performed By: #### 74303 ####[facility] [address] [place] [address] Abbi Choudhary M.D. [id number] (Bld) [Moles/Vol]23 mmol/FQcoahe61-87EufnliOaklawn Psychiatric Center Comment on above:Order Comment: [facility] has implemented the eGFR calculation approach that does not have a coefficient for race that conforms to the NKF-ASN Task Force Recommendations.Performed By: #### [id number] #### LAB [address] [place] [address] Abbi Choudhary M.D. 36D0 141092Nedagkdax [Mass/Vol]4.0 mg/dLNormal2.7-4.5[facility] on above:Order Comment: [facility] has implemented the eGFR calculation approach that does not have a coefficient for race that conforms to the NKF-ASN Task Force Recommendations.Performed By: #### [id number] ####[facility] [address] [place] [address] Abbi Choudhary M.D. [id number] [Moles/Vol]4.5 mmol/LNormal3.5-5.1MSt. Mary's Warrick Hospital on above:Order Comment: [facility] has implemented the eGFR calculation approach that does not have a coefficient for race that conforms to the NKF-ASN Task Force Recommendations.Performed By: #### 59576 ####[facility] [address] [place] [address] Abbi Choudhary M.D. [id number] [Moles/Vol]137 mmol/NVvukpo585-520RmelpoParkview Noble Hospital on above:Order Comment: [facility] has implemented the eGFR calculation approach that does not have a coefficient for race that conforms to the NKF-ASN Task Force Recommendations.Performed By: #### 50826 ####[facility] [address] [place] [address] Abbi Choudhary M.D. [id number] nitrogen [Mass/Vol]30 mg/dLHigh8-25O[facility] Psychiatric CenterComment on above:Order Comment: [facility] has implemented the eGFR calculation approach that does not have a coefficient for race that conforms to the NKF-ASN Task Force Recommendations.Performed By: #### 40583 ####[facility] [address] [place], [place] [address] Abbi Choudhary M.D. [id number] nitrogen/Creatinine [Mass ratio]17.4 mg/vxYvbzhn94.0-20.0[facility] Psychiatric CenterComsheridan community hospital on above:Order Comment: [facility] has implemented the eGFR calculation approach that does not have a coefficient for race that conforms to the NKF-ASN Task Force Recommendations.Performed By: #### 95375 ####[facility] [address] [place], [place] [address] Abbi Choudhary M.D. [id number] function 2000 panel on 58-17-2079Anrmyyf [Mass/Vol]3.2 g/dL3.2 - 5.2 g/dLOhioHealthAnion gap [Moles/Vol]15 mmol/L10 - 20 mmol/LOhioHealthCalcium [Mass/Vol]8.5 mg/dL8.4 - 10.2 mg/dLOhioHealthChloride [Moles/Vol]104 mmol/L98 - 108 mmol/LOhioHealth Creatinine [Mass/Vol]1.72 mg/dLHigh0.40 - 1.10 mg/dLOhioHealthGFR/1.73 sq M.predicted CKD-EPI (S/P/Bld) [Vol rate/Area]37Low- PINFOhioHealthComment on above:Estimated GFR was calculated using the 2020 CKD-EPI creatinine equation. Glucose [Mass/Vol]358 mg/yEZzbq28 - 99 mg/dLOhioHealthHCO3 [Moles/Vol]23 mmol/L 21 - 32 mmol/LOhioHealthInterpretation and review of laboratory resultsAbnormal OhioHealthPhosphate [Mass/Vol]4 mg/dL2.7 - 4.5 mg/dLOhioHealthPotassium [Moles/Vol]4.5 mmol/L3.5 - 5.1 mmol/LOhioHealthSodium [Moles/Vol]137 mmol/L135 - 145 mmol/LOhioHealthUrea nitrogen [Mass/Vol]30 mg/dLHigh8 - 25 mg/dLOhioOhio Valley Surgical Hospital Urea nitrogen/Creatinine [Mass ratio]17.4 mg/mg10.0 - 20.0OhioGalion [facility] has implemented the eGFR calculation approach that does not have a coefficient for race that conforms to the NKF-ASN Task Force Recommendations.[facility] 96-88-9449TAKK NRBC0.0 %NormalOaklawn Psychiatric CenterComment on above:Performed By: #### 47094 ####[facility] [address] [place] [address] Abbi Choudhary M.D. [id number] NRBC ABS COUNT0.00 K/mcLNormal0.00-0.00[facility] CenterComment on above:Performed By: #### 01806 ####[facility] [address] [place], [place] [address] Abbi Choudhary M.D. [id number] distribution width (RBC) [Ratio]13.2 %Fyphfg45.6-14.8 [facility] CenterComment on above:Performed By: #### [id number] ####[facility] [address] [place] [address] Abbi Choudhary M.D. [id number] (Bld) [Volume fraction]27.7 %Low36.0-46.0O[facility] Psychiatric CenterComment on above:Performed By: #### 89328 ####[facility] [address] [place], [place] [address] Abbi Choudhary M.D. [id number] (Bld) [Mass/Vol]9.4 g/dLLow12.0-16.0 [facility]en[facility] Hospitalment on above:Performed By: #### 08336 ####[facility] [address] [place] [address] Abbi Choudhary M.D. [id number] (RBC) [Entitic mass]31.9 bxHbjvrp72.0-34.0[facility] HospitalComment on above: Performed By: #### [id number] ####[facility] [address] [place] [address] Abbi Choudhary M.D. [id number] (RBC) [Entitic vol]93.9 cBZjtegn82.0-100.0[facility] HospitalComment on above:Performed By: #### 89806 ####[facility] [address] [place] [address] Abbi Choudhary M.D. [id number] CORPUSCULAR HEMOGLOBIN CONC33.9 g/iARyzxnq32.0-37.0[facility] CenterComment on above: Performed By: #### 60556 ####[facility] [address] [place] [address] Abbi Choudhary M.D. [id number] mean volume (Bld) [Entitic vol]9.7 fLNormal 9.4-12.4O[facility] Psychiatric CenterComment on above:Performed By: #### 14779 ####[facility] [address] [place] [address] Abbi Choudhary M.D. [id number] Platelets (Bld) [#/Vol]277 10*3/jAEtxtec710-034TmewyxOaklawn Psychiatric CenterComment on above:Performed By: #### 74637 ####[facility] [address] [place] [address] Abbi Choudhary M.D. [id number] (Bld) [#/Vol]2.95 10*6/uLLow4.00-5.20 [facility] CenterComment on above:Performed By: #### 37462 ####[facility] [address] [place] [address] Abbi Choudhary M.D. [id number] (Bld) [#/Vol]8.19 10*3/uLNormal4.50-11.00[facility] Psychiatric CenterComment on above: Performed By: #### 06655 ####[facility] [address] [place], [place] [address] Abbi Choudhary M.D. [id number] panel Auto (Bld)on 43-27-4271Fxybhfzatbx distribution width (RBC) [Entitic vol]13.2 %11.6 - [...] 10*6/uLLowOhioHealthWBC (Bld) [#/Vol] 8.19 10*3/uLOhioHealthOhioHealthGlucose (Bld) [Mass/Vol]on 73-44-5888Vkqsths [Mass/Vol]236 mg/aRSeuq38 - 99 mg/dLOhioHealthInterpretation and review of laboratory resultsAbnormalOhioHealthOhioHealthGlucose [Mass/Vol]282 mg/rTFkfm01 - 99 mg/dLOhioHealthInterpretation and review of laboratory resultsAbnormal OhioHealthOhioHealthGlucose [Mass/Vol]267 mg/jEUjsd54 - 99 mg/dLOhioHealth Interpretation and review of laboratory resultsAbnormalOhioHealthOhioHealth Glucose [Mass/Vol]315 mg/uVXlyd19 - 99 mg/dLOhioHealthInterpretation and review of laboratory resultsAbnormSheltering Arms Hospital GLUCOSE [facility] 04-28-2024 Glucose [Mass/Vol]236 mg/aZXqsp60-16YspascDaviess Community HospitalComment on above: Performed By: #### 87580 ####[facility] [address] [place], [place] [address] Abbi Choudhary M.D. [id number] [Mass/Vol]282 mg/fQFshk61-60Zdzakp11 [address] StreetComment on above:Performed By: #### 25737 ####[facility] [address] [place] [address] Abbi Choudhary M.D. [id number] [Mass/Vol]267 mg/dL Hphk17-26Yqzfwl66 [address] StreetComment on above:Performed By: #### 17566 ####[facility] [address] [place] [address] Abbi Choudhary M.D. 36D0 [id number] [Mass/Vol]315 mg/wEGrca17-51Pmcjaf11 [address] StreetComment on above:Performed By: #### 77408 ####[facility] [address] [place] [address] Abbi Choudhary M.D. [id number] FUNCTION PANELon 70-38-3847Rzzadyo [Mass/Vol]3.1 g/dLLow3.2-5.2MDaviess Community HospitalComment on above:Order Comment: [facility] has implemented the eGFR calculation approach that does not have a coefficient for race that conforms to the NKF-ASN Task Force Recommendations.Performed By: #### [id number] ####[facility] [address] [place] [address] Abbi Choudhary M.D. [id number] gap [Moles/Vol]15 mmol/QRmhovw46-45ZqowyeParkview Noble Hospital on above:Order Comment: [facility] [place] [facility] has implemented the eGFR calculation approach that does not have a coefficient for race that conforms to the NKF-ASN Task Force Recommendations.Performed By: #### 43737 ####[facility] [address] [place], [place] [address] Abbi Choudhary M.D. [id number] [Mass/Vol]8.7 mg/dL Normal8.4-10.2MSt. Mary's Warrick Hospital on above:Order Comment: [facility] has implemented the eGFR calculation approach that does not have a coefficient for race that conforms to the NKF-ASN Task Force Recommendations.Performed By: #### [id number] ####[facility] [address] [place], [place] [address] Abbi Choudhary M.D. [id number] [Moles/Vol]102 mmol/LNormal 98-108[facility] on above:Order Comment: [facility] has implemented the eGFR calculation approach that does not have a coefficient for race that conforms to the NKF-ASN Task Force Recommendations.Performed By: #### 83110 ####[facility] [address] [place], [place] [address] Abbi Choudhary M.D. [id number] [Mass/Vol]1.68 mg/dLHigh 0.40-1.10[facility] on above:Order Comment: [facility] has implemented the eGFR calculation approach that does not have a coefficient for race that conforms to the NKF-ASN Task Force Recommendations.Performed By: #### 52740 ####[facility] [address] [place], [place] [address] bAbi Choudhary M.D. [id number] mL/min/1.73 m2Low>=60[facility] on above:Order Comment: [facility] has implemented the eGFR calculation approach that does not have a coefficient for race that conforms to the NKF-ASN Task Force Recommendations.Result Comment: Estimated GFR was calculated using the 2020 CKD-EPI creatinine equation. Performed By: #### 15721 ####[facility] [address] [place], [place] [address] Abbi Choudhary M.D. [id number] [Mass/Vol]408 mg/dLOff scale osgb81-56HkmfxjSt. Mary's [facility]rick Hospital on above:Order Comment: [facility] has implemented the eGFR calculation approach that does not have a coefficient for race that conforms to the NKF-ASN Task Force Recommendations.Performed By: #### 08552 ####[facility] [address] [place] [address] Abbi Choudhary M.D. [id number] (Bld) [Moles/Vol]24 mmol/MPsgash30-77BbpvgtOaklawn Psychiatric Center Comment on above:Order Comment: [facility] has implemented the eGFR calculation approach that does not have a coefficient for race that conforms to the NKF-ASN Task Force Recommendations.Performed By: #### 31169 ####[facility] [address] [place] [address] Abbi Choudhary M.D. 36D0 118047Hmhkxgvbd [Mass/Vol]3.8 mg/dLNormal2.7-4.5O[facility] Psychiatric CenterComment on above:Order Comment: [facility] has implemented the eGFR calculation approach that does not have a coefficient for race that conforms to the NKF-ASN Task Force Recommendations.Performed By: #### [id number] ####[facility] [address] [place] [address] Abbi Choudhary M.D. [id number] [Moles/Vol]4.5 mmol/LNormal3.5-5.1MDaviess Community HospitalComment on above:Order Comment: [facility] has implemented the eGFR calculation approach that does not have a coefficient for race that conforms to the NKF-ASN Task Force Recommendations.Performed By: #### 01029 ####[facility] [address] [place] [address] Abbi Choudhary M.D. [id number] [Moles/Vol]136 mmol/VRydslg967-302IehtsqOaklawn Psychiatric CenterComment on above:Order Comment: [facility] has implemented the eGFR calculation approach that does not have a coefficient for race that conforms to the NKF-ASN Task Force Recommendations.Performed By: #### 07241 ####[facility] [address] [place] [address] Abbi Choudhary M.D. [id number] nitrogen [Mass/Vol]27 mg/dLHigh8-25[facility] on above:Order Comment: [facility] has implemented the eGFR calculation approach that does not have a coefficient for race that conforms to the NKF-ASN Task Force Recommendations.Performed By: #### 55701 ####[facility] [address] [place], [place] [address] Abbi Choudhary M.D. [id number] nitrogen/Creatinine [Mass ratio]16.1 mg/cwQqillx37.0-20.0[facility] on above:Order Comment: [facility] has implemented the eGFR calculation approach that does not have a coefficient for race that conforms to the NKF-ASN Task Force Recommendations.Performed By: #### [id number] ####[facility] [address] [place], [place] [address] Abbi Choudhary M.D. [id number] function 2000 panel Ordered By: Navneet Parr on 78-84-4392Souqiep [Mass/Vol]3.1 g/dLLow3.2 - 5.2 g/dLOhioHealthAnion gap [Moles/Vol]15 mmol/L10 - 20 mmol/LOhioHealthCalcium [Mass/Vol]8.7 mg/dL8.4 - 10.2 mg/dLOhioHealthChloride [Moles/Vol]102 mmol/L98 - 108 mmol/LOhioHealthCreatinine [Mass/Vol]1.68 mg/dLHigh0.40 - 1.10 mg/dL OhioHealthGFR/1.73 sq M.predicted CKD-EPI (S/P/Bld) [Vol rate/Area]38Low- PINF [facility] on above:Estimated GFR was calculated using the 2020 CKD-EPI creatinine equation.Glucose [Mass/Vol]408 mg/dLCritically high65 - 99 mg/dL OhioHealthHCO3 [Moles/Vol]24 mmol/L21 - 32 mmol/LOhioHealthInterpretation and review of laboratory resultsAbnormalOhioHealthPhosphate [Mass/Vol]3.8 mg/dL2.7 - 4.5 mg/dLOhioHealthPotassium [Moles/Vol]4.5 mmol/L3.5 - 5.1 mmol/LOhioHealth Sodium [Moles/Vol]136 mmol/L135 - 145 mmol/LOhioHealthUrea nitrogen [Mass/Vol]27 mg/dLHigh8 - 25 mg/dLOhioHealthUrea nitrogen/Creatinine [Mass ratio]16.1 mg/mg 10.0 - 20.0[facility] has implemented the eGFR calculation approach that does not have a coefficient for race that conforms to the NKF-ASN Task Force Recommendations.[facility] 77-95-0299NCUS NRBC0.0 %NormalOaklawn Psychiatric CenterComment on above:Performed By: #### 71104 #### LAB [address] [place] [address] Abbi Choudhary M.D. 36D0 062531SYTY NRBC ABS COUNT0.00 K/mcLNormal0.00-0.00O[facility] Psychiatric CenterComment on above:Performed By: #### 03946 ####[facility] [address] [place] [address] Abbi Choudhary M.D. [id number] distribution width (RBC) [Ratio] 13.0 %Tzgpkw82.6-14.8O[facility]wn Psychiatric CenterComment on above:Performed By: #### 53091 ####[facility] [address] [place] [address] Abbi Choudhary M.D. [id number] (Bld) [Volume fraction]33.0 %Low36.0-46.0O[facility]wn Psychiatric CenterComment on above:Performed By: #### 74831 ####[facility] [address] [place] [address] Abbi Choudhary M.D. [id number] (Bld) [Mass/Vol] 11.3 g/dLLow12.0-16.0[facility] CenterComment on above:Performed By: #### [id number] ####[facility] [address] [place] [address] Abbi Choudhary M.D. [id number] (RBC) [Entitic mass]31.1 xhOdvshl49.0-34.0[facility] Comment on above:Performed By: #### [id number] ####[facility] [address] [address] Abbi Choudhary M.D. [id number] (RBC) [Entitic vol]90.9 fLNormal 80.0-100.0[facility] Psych[facility] CenterComment on above:Performed By: #### [id number] #### LAB [address] [address] Abbi Choudhary M.D. [id number] CORPUSCULAR HEMOGLOBIN CONC34.2 g/zWBxpmnx47.0-37.0[facility] CenterComment on above:Performed By: #### [id number] ####[facility] [address] [address] Abbi Choudhary M.D. [id number] mean volume (Bld) [Entitic vol]9.6 fLNormal9.4-12.4[facility] CenterComment on above: Performed By: #### [id number] ####[facility] [address] [address] Abbi Choudhary M.D. [id number] (Bld) [#/Vol]287 10*3/pTJraujq240-520XwjcgzOaklawn Psychiatric CenterComment on above:Performed By: #### [id number] ####[facility] [address] [address] Abbi Choudhary M.D. [id number] (Bld) [#/Vol]3.63 10*6/uLLow4.00-5.20[facility] CenterComment on above:Performed By: #### [id number] ####[facility] [address] [address] Abbi Choudhary M.D. [id number] (Bld) [#/Vol]9.85 10*3/uLNormal4.50-11.00[facility] CenterComment on above:Performed By: #### [id number] ####[facility] [address] [address] Abbi Choudhary M.D. [id number] panel Auto (Bld)on 05-39-7399Nbeoowvjnas distribution width (RBC) [Entitic vol]13 %11.6 - 14.8 % CaliforniaHealthHematocrit (Bld) [Volume fraction]33 %Low36.0 - 46.0 %[facility] Hemoglobin (Bld) [Mass/Vol]11.3 g/dLLow12.0 - 16.0 g/dLOhioHealthInterpretation and review of laboratory resultsAbnormalOhioHealthMCH (RBC) [Entitic mass]31.1 pg26.0 - 34.0 pgOhioHealthMCHC (RBC) [Mass/Vol]34.2 g/dL31.0 - 37.0 g/dL [facility] HospitalMCV (RBC) [Entitic vol]90.9 fL80.0 - 100.0 fLOhioHealthNucleated RBC (Bld) [#/Vol]0 10*3/uLOhioHealthNucleated RBC/100 WBC (Bld) [Ratio]0 %[facility] Platelet mean volume (Bld) [Entitic vol]9.6 fL9.4 - 12.4 fLOhioHealthPlatelets (Bld) [#/Vol]287 10*3/uLOhioHealthRBC (Bld) [#/Vol]3.63 10*6/uLLowOhioHealthWBC (Bld) [#/Vol]9.85 10*3/uLOhioHealthOhioHealthCONSULTon 37-27-1481QQZOUYOMyskgnMercy Health Perrysburg HospitalGlucose (Bld) [Mass/Vol]on 15-99-6480Iqebzdf [Mass/Vol] 241 mg/aEAxmx58 - 99 mg/dLOhioHealthInterpretation and review of laboratory resultsAbnormMartins Ferry HospitalHealthGlucose [Mass/Vol]191 mg/wRGfgo46 - 99 mg/dL OhioOhio Valley Surgical HospitalInterpretation and review of laboratory resultsAbnormalOhioHealth [facility] HospitalGlucose [Mass/Vol]184 mg/nPXdph84 - 99 mg/dLOhioHealthInterpretation and review of laboratory resultsAbnormMercy Health St. Elizabeth Youngstown HospitalioHealthGlucose [Mass/Vol] 315 mg/gVIvbu42 - 99 mg/dLOhioHealthInterpretation and review of laboratory resultsAbnormalOhioHealthOhioHealthGlucose [Mass/Vol]355 mg/rTRwqf80 - 99 mg/dL OhioHealthInterpretation and review of laboratory resultsAbnormalOhioHealth OhioHealthGlucose [Mass/Vol]336 mg/bHHcvf01 - 99 mg/dLOhioHealthInterpretation and review of laboratory resultsAbnormalOhioHealthOhioHealthGold Topon 75-41-6874Uvgxt TubeHold for add-ons.OhioHealthComment on above:Auto resulted. [facility] GLUCOSE - RALSon 08-21-9499Dmsulhp [Mass/Vol]241 mg/nNLfzj19-77 [facility] CenterComment on above:Performed By: #### [id number] ####[facility] [address] [place], [place] [address] Abbi Choudhary M.D. [id number] [Mass/Vol]191 mg/cLHhwm16-92KsokpgDaviess Community HospitalComment on above:Performed By: #### [id number] ####[facility] [address] [place], [place] [address] Abbi Choudhary M.D. [id number] [Mass/Vol]184 mg/zBFqvr08-88Ncywsd[address] Comment on above:Performed By: #### [id number] ####[facility] [address] [place], [place] [address] Abbi Choudhary M.D. [id number] [Mass/Vol]315 mg/yZWpmk42-[address] [place], [place] [address]Comment on above:Performed By: #### [id number] ####[facility] [address] [place], [place] [address] Abbi Choudhary M.D. [id number] [Mass/Vol]355 mg/zHActx45-76NhvjjpDaviess Community HospitalComment on above:Performed By: #### [id number] ####[facility] [address] [place], [place] [address] Abbi Choudhary M.D. [id number] [Mass/Vol]336 mg/zIAeqm66-07Wgbrlw[address] Comment on above:Performed By: #### [id number] ####[facility] [address] [place], [place] [address] Abbi Choudhary M.D. [id number] FUNCTION PANELon 04-27-2024 Albumin [Mass/Vol]3.7 g/dLNormal3.2-5.2MSt. [facility]'s [facility] on above: Order Comment: [facility] Laboratory [facility] has implemented the eGFR calculation approach that does not have a coefficient for race that conforms to the NKF-ASN Task Force Recommendations.Performed By: #### [id number] ####[facility] [address] [place], [place] [address] Abbi Choudhary M.D. [id number] gap [Moles/Vol]17 mmol/UWkrbmw80-31AimamjParkview Noble Hospital on above:Order Comment: [facility] Laboratory [facility] has implemented the eGFR calculation approach that does not have a coefficient for race that conforms to the NKF-ASN Task Force Recommendations.Performed By: #### [id number] ####[facility] [address] [address] Abbi Choudhary M.D. [id number] [Mass/Vol]8.7 mg/dLNormal8.4-10.2MSt. Mary's Warrick Hospital on above:Order Comment: [facility] Laboratory [facility] has implemented the eGFR calculation approach that does not have a coefficient for race that conforms to the NKF-ASN Task Force Recommendations.Performed By: #### [id number] ####[facility] [address] [address] Abbi Choudhary M.D. [id number] [Moles/Vol]99 mmol/L Obgtjj15-648MxbmytParkview Noble Hospital on above:Order Comment: [facility] Laboratory [facility] has implemented the eGFR calculation approach that does not have a coefficient for race that conforms to the NKF-ASN Task Force Recommendations.Performed By: #### [id number] ####[facility] [address] [place], [place] [address] Abbi Choudhary M.D. [id number] [Mass/Vol]1.34 mg/dLHigh 0.40-1.10[facility] on above:Order Comment: [facility] Laboratory [facility] has implemented the eGFR calculation approach that does not have a coefficient for race that conforms to the NKF-ASN Task Force Recommendations.Performed By: #### [id number] ####[facility] [address] [address] Abbi Choudhary M.D. [id number] mL/min/1.73 m2Low>=60[facility] on above:Order Comment: [facility] Laboratory [facility] has implemented the eGFR calculation approach that does not have a coefficient for race that conforms to the NKF-ASN Task Force Recommendations.Result Comment: Estimated GFR was calculated using the 2020 CKD-EPI creatinine equation. Performed By: #### [id number] ####[facility] [address] [address] Abbi Choudhary M.D. [id number] [Mass/Vol]361 mg/zMRxop37-44XfyopxSt. Mary's Warrick Hospital on above:Order Comment: [facility] has implemented the eGFR calculation approach that does not have a coefficient for race that conforms to the NKF-ASN Task Force Recommendations.Performed By: #### [id number] ####[facility] [address] [address] Abbi Choudhary M.D. [id number] (Bld) [Moles/Vol]23 mmol/AXsohav59-86UgzqftOaklawn Psychiatric Center Comment on above:Order Comment: [facility] has implemented the eGFR calculation approach that does not have a coefficient for race that conforms to the NKF-ASN Task Force Recommendations.Performed By: #### [id number] ####[facility] [address] [place], [place] [address] Abbi Choudhary M.D. [id number] [id number] [Mass/Vol]2.4 mg/dLLow2.7-4.5[facility] on above:Order Comment: [facility] Laboratory [facility] has implemented the eGFR calculation approach that does not have a coefficient for race that conforms to the NKF-ASN Task Force Recommendations.Performed By: #### [id number] ####[facility] [address] [address] Abbi Choudhary M.D. [id number] [Moles/Vol]4.3 mmol/LNormal3.5-5.1MSt. Mary's [facility] Hospital on above:Order Comment: [facility] Laboratory [facility] has implemented the eGFR calculation approach that does not have a coefficient for race that conforms to the NKF-ASN Task Force Recommendations.Performed By: #### [id number] ####[facility] [address] [address] Abbi Choudhary M.D. [id number] [Moles/Vol]135 mmol/QBuudae161-018NfjmyiParkview Noble Hospital on above:Order Comment: [facility] Laboratory [facility] has implemented the eGFR calculation approach that does not have a coefficient for race that conforms to the NKF-ASN Task Force Recommendations.Performed By: #### [id number] ####[facility] [address] [address] Abbi Choudhary M.D. [id number] nitrogen [Mass/Vol]26 mg/dLHigh8-25[facility] on above:Order Comment: [facility] Laboratory [facility] has implemented the eGFR calculation approach that does not have a coefficient for race that conforms to the NKF-ASN Task Force Recommendations.Performed By: #### [id number] ####[facility] [address] [address] Abbi Choudhary M.D. [id number] nitrogen/Creatinine [Mass ratio]19.4 mg/kgUhnlbw18.0-20.0[facility] on above:Order Comment: [facility] Laboratory [facility] has implemented the eGFR calculation approach that does not have a coefficient for race that conforms to the NKF-ASN Task Force Recommendations.Performed By: #### [id number] ####[facility] [address] [address] Abbi Choudhary M.D. [id number] function 2000 panel on 37-07-7715Zaygare [Mass/Vol]3.7 g/dL3.2 - 5.2 g/dLOhioHealthAnion gap [Moles/Vol]17 mmol/L10 - 20 mmol/LOhioHealthCalcium [Mass/Vol]8.7 mg/dL8.4 - 10.2 mg/dLOhioHealthChloride [Moles/Vol]99 mmol/L98 - 108 mmol/LOhioHealth Creatinine [Mass/Vol]1.34 mg/dLHigh0.40 - 1.10 mg/dLOhioHealthGFR/1.73 sq M.predicted CKD-EPI (S/P/Bld) [Vol rate/Area]49Low- PINFOhioHealthComment on above:Estimated GFR was calculated using the 2020 CKD-EPI creatinine equation. Glucose [Mass/Vol]361 mg/mTZmru19 - 99 mg/dLOhioHealthHCO3 [Moles/Vol]23 mmol/L 21 - 32 mmol/LOhioHealthInterpretation and review of laboratory resultsAbnormal [facility] HospitalPhosphate [Mass/Vol]2.4 mg/dLLow2.7 - 4.5 mg/dLOhioHealthPotassium [Moles/Vol]4.3 mmol/L3.5 - 5.1 mmol/LOhioHealthSodium [Moles/Vol]135 mmol/L135 - 145 mmol/LOhioHealthUrea nitrogen [Mass/Vol]26 mg/dLHigh8 - 25 mg/dLOhioHealth Urea nitrogen/Creatinine [Mass ratio]19.4 mg/mg10.0 - 20.0[facility] Laboratory [facility] has implemented the eGFR calculation approach that does not have a coefficient for race that conforms to the NKF-ASN Task Force Recommendations.[facility] HospitalBASIC METABOLIC PANELon 75-23-1065Olapy gap [Moles/Vol]19 mmol/GEfysol99-44FjqnqbOaklawn Psychiatric CenterComment on above:Order Comment: [facility] Laboratory [facility] has implemented the eGFR calculation approach that does not have a coefficient for race that conforms to the NKF-ASN Task Force Recommendations.Performed By: #### [id number] ####[facility] [address] [address] Abbi Choudhary M.D. [id number] [Mass/Vol]8.9 mg/dLNormal8.4-10.2MDaviess Community HospitalComsheridan community hospital on above:Order Comment: [facility] Laboratory [facility] has implemented the eGFR calculation approach that does not have a coefficient for race that conforms to the NKF-ASN Task Force Recommendations.Performed By: #### [id number] ####[facility] [address] [place], [place] [address] Abbi Choudhary M.D. [id number] [Moles/Vol]99 mmol/L Aqreak47-967LgolkyParkview Noble Hospital on above:Order Comment: [facility] Laboratory [facility] has implemented the eGFR calculation approach that does not have a coefficient for race that conforms to the NKF-ASN Task Force Recommendations.Performed By: #### [id number] ####[facility] [address] [address] Abbi Choudhary M.D. [id number] [Mass/Vol]1.66 mg/dLHigh 0.40-1.10[facility] on above:Order Comment: [facility] Laboratory [facility] has implemented the eGFR calculation approach that does not have a coefficient for race that conforms to the NKF-ASN Task Force Recommendations.Performed By: #### [id number] ####[facility] [address] [address] Abbi Choudhary M.D. [id number] mL/min/1.73 m2Low>=60[facility] on above:Order Comment: [facility] Laboratory [facility] has implemented the eGFR calculation approach that does not have a coefficient for race that conforms to the NKF-ASN Task Force Recommendations.Result Comment: Estimated GFR was calculated using the 2020 CKD-EPI creatinine equation. Performed By: #### [id number] ####[facility] [address] [address] Abbi Choudhary M.D. [id number] [Mass/Vol]293 mg/jAFuuf12-66VgeuxuDaviess Community HospitalComsheridan community hospital on above:Order Comment: [facility] Laboratory [facility] has implemented the eGFR calculation approach that does not have a coefficient for race that conforms to the NKF-ASN Task Force Recommendations.Performed By: #### [id number] ####[facility] [address] [address] Abbi Choudhary M.D. [id number] (Bld) [Moles/Vol]24 mmol/KPnguek15-10UkqhxfOaklawn Psychiatric Center Comment on above:Order Comment: [facility] Laboratory [facility] has implemented the eGFR calculation approach that does not have a coefficient for race that conforms to the NKF-ASN Task Force Recommendations.Performed By: #### [id number] #### [facility] [address] [address] Abbi Choudhary M.D. 36D0 022205Gwwvggdtg [Moles/Vol]4.3 mmol/LNormal3.5-5.1MSt. Mary's [facility] on above:Order Comment: [facility] Laboratory [facility] has implemented the eGFR calculation approach that does not have a coefficient for race that conforms to the NKF-ASN Task Force Recommendations.Performed By: #### [id number] #### [facility] [address] [address] Abbi Choudhary M.D. [id number] [Moles/Vol]138 mmol/OSdfvtm645-708OjkvkgParkview Noble Hospital on above:Order Comment: [facility] Laboratory [facility] has implemented the eGFR calculation approach that does not have a coefficient for race that conforms to the NKF-ASN Task Force Recommendations.Performed By: #### [id number] ####[facility] [address] [address] Abbi Choudhary M.D. [id number] nitrogen [Mass/Vol] 30 mg/dLHigh8-25[facility] on above:Order Comment: [facility] Laboratory [facility] has implemented the eGFR calculation approach that does not have a coefficient for race that conforms to the NKF-ASN Task Force Recommendations.Performed By: #### [id number] ####[facility] [address] [address] Abbi Choudhary M.D. [id number] nitrogen/Creatinine [Mass ratio]18.1 mg/xdDptuaj45.0-20.0[facility] on above:Order Comment: [facility] has implemented the eGFR calculation approach that does not have a coefficient for race that conforms to the NKF-ASN Task Force Recommendations.Performed By: #### [id number] ####[facility] [address] [address] Abbi Choudhary M.D. [id number] metabolic 2000 panelon 81-32-6452Ffbas gap [Moles/Vol]19 mmol/L10 - 20 mmol/LOhioHealthCalcium [Mass/Vol]8.9 mg/dL8.4 - 10.2 mg/dLOhioHealthChloride [Moles/Vol]99 mmol/L98 - 108 mmol/LOhioHealthCreatinine [Mass/Vol]1.66 mg/dLHigh0.40 - 1.10 mg/dL OhioHealthGFR/1.73 sq M.predicted CKD-EPI (S/P/Bld) [Vol rate/Area]38Low- PINF [facility] HospitalComment on above:Estimated GFR was calculated using the 2020 CKD-EPI creatinine equation.Glucose [Mass/Vol]293 mg/vQVlun49 - 99 mg/dLOhioHealthHCO3 [Moles/Vol]24 mmol/L21 - 32 mmol/LOhioHealthPotassium [Moles/Vol]4.3 mmol/L3.5 - 5.1 mmol/LOhioHealthSodium [Moles/Vol]138 mmol/L135 - 145 mmol/LOhioHealthUrea nitrogen [Mass/Vol]30 mg/dLHigh8 - 25 mg/dLOhioHealthUrea nitrogen/Creatinine [Mass ratio]18.1 mg/mg10.0 - 20.0OhioWooster Community HospitalioHealth [facility] has implemented the eGFR calculation approach that does not have a coefficient for race that conforms to the NKF-ASN Task Force Recommendations.[facility] Auto Differentialon 70-87-9110Lociwydok (Bld) [#/Vol]0.05 10*3/uLOhioHealth Basophils/100 WBC (Bld)0.5 %OhioHealthEosinophils (Bld) [#/Vol]0.18 10*3/uL OhioHealthEosinophils/100 WBC (Bld)1.7 %[facility] HospitalErythrocyte distribution width (RBC) [Entitic vol]13.2 %11.6 [...] (Bld) [#/Vol]10.46 10*3/uLOhioHealth OhioHealthCBC WITH AUTO DIFFERENTIALon 95-10-3400BUMC NRBC0.0 %[facility] HospitalComment on above:Performed By: #### [id number] ####[facility] [address] [address] Abbi Choudhary M.D. [id number] NRBC ABS COUNT0.00 K/mcLNormal0.00-0.00[facility] CenterComment on above:Performed By: #### [id number] ####[facility] [address] [address] Abbi Choudhary M.D. [id number] ABSOLUTE COUNT0.05 K/mcLNormal0.00-0.30[facility] HospitalComment on above:Performed By: #### [id number] ####[facility] [address] [address] Abbi Choudhary M.D. [id number]/100 WBC (Bld)0.5 %NormalOaklawn Psychiatric CenterComment on above:Performed By: #### [id number] ####[facility] [address] [address] Abbi Choudhary M.D. [id number] (Bld) [#/Vol]0.18 10*3/uLNormal0.00-0.50[facility] CenterComment on above:Performed By: #### [id number] ####[facility] [address] [address] Abbi Choudhary M.D. [id number]/100 WBC (Bld) 1.7 %NormalOaklawn Psychiatric CenterComment on above:Performed By: #### [id number] ####[facility] [address] [address] Abbi Choudhary M.D. 36 [id number] distribution width (RBC) [Ratio]13.2 %Ezfpia57.6-14.8[facility] HospitalComment on above:Performed By: #### [id number] ####[facility] [address] [address] Abbi Choudhary M.D. [id number] (Bld) [Volume fraction]34.9 %Low36.0-46.0[facility] HospitalComment on above: Performed By: #### [id number] ####[facility] [address] [address] Abbi Choudhary M.D. [id number] (Bld) [Mass/Vol]11.9 g/dLLow12.0-16.0 [facility] CenterComment on above:Performed By: #### [id number] ####[facility] [address] [address] Abbi Choudhary M.D. [id number] ABSOLUTE 0.09 K/mcLNormal0.00-0.30[facility] CenterComment on above:Performed By: #### [id number] ####[facility] [address] [address] Abbi Choudhary M.D. [id number] PERCENT0.90 %[facility] HospitalComment on above: Result Comment: The IG parameter is the percentage of metamyelocytes, myelocytes and promyelocytes.An immature granulocyte count (IG) of 1% or more suggests the possibility of infection, an IG countof 3% is very likely related to an infection.Performed By: #### [id number] ####[facility] [address] [address] Abbi Choudhary M.D. [id number] (Bld) [#/Vol]1.60 10*3/uLNormal0.90-4.00[facility] CenterComment on above:Performed By: #### [id number] ####[facility] [address] [address] Abbi Choudhary M.D. [id number]/100 WBC (Bld)15.3 %[facility] HospitalComment on above:Performed By: #### [id number] ####[facility] [address] [address] Abbi Choudhary M.D. [id number] (RBC) [Entitic mass]31.2 pgNormal 26.0-34.0[facility] CenterComment on above:Performed By: #### [id number] ####[facility] [address] [address] Abbi Choudhary M.D. 36 [id number] (RBC) [Entitic vol]91.4 oPIoxres94.0-100.0[facility] Comment on above:Performed By: #### [id number] ####[facility] [address] [address] Abbi Choudhary M.D. [id number] CORPUSCULAR HEMOGLOBIN CONC34.1 g/xAUrqdeo66.0-37.0[facility] CenterComment on above:Performed By: #### [id number] ####[facility] [address] [address] Abbi Choudhary M.D. [id number] (Bld) [#/Vol]0.50 10*3/uLNormal0.30-0.90[facility] CenterComment on above:Performed By: #### [id number] ####[facility] [address] [address] Abbi Choudhary M.D. [id number]/100 WBC (Bld) 4.8 %NormalOaklawn Psychiatric CenterComment on above:Performed By: #### [id number] ####[facility] [address] [address] Abbi Choudhary M.D. 36 [id number] ABSOLUTE COUNT8.04 K/mcLHigh1.70-7.00[facility] Comment on above:Performed By: #### [id number] ####[facility] [address] [address] Abbi Choudhary M.D. [id number]/100 WBC (Bld)76.8 % [facility] HospitalComment on above:Performed By: #### [id number] ####[facility] [address] [address] Abbi Choudhary M.D. [id number] Platelet mean volume (Bld) [Entitic vol]9.8 fLNormal9.4-12.4[facility] CenterComment on above:Performed By: #### [id number] ####[facility] [address] [place], [place] [address] Abbi Choudhary M.D. [id number] (Bld) [#/Vol] 294 10*3/uTZfbftr069-741AeguwkOaklawn Psychiatric CenterComment on above:Performed By: #### [id number] ####[facility] [address] [place], [place] [address] Abbi Choudhary M.D. [id number] (Bld) [#/Vol]3.82 10*6/uLLow4.00-5.20[facility] Comment on above:Performed By: #### [id number] ####[facility] [address] [place], [place] [address] Abbi Choudhary M.D. [id number] (Bld) [#/Vol]10.46 10*3/uL Normal4.50-11.00[facility] CenterComment on above:Performed By: #### [id number] ####[facility] [address] [place], [place] [address] Abbi Choudhary M.D. [id number], INFLAMMATIONon 02-06-4170TKW [Mass/Vol]91.8 mg/LHigh0.0-10.0 [facility] CenterComment on above:Performed By: #### [id number] ####[facility] [address] [place], [place] [address] Abbi Choudhary M.D. [id number], Inflammationon 40-82-2488RCK [Mass/Vol]91.8 mg/LHigh0.0 - 10.0 mg/LOhioHealth Dark Green TopOrdered By: Sandra Aguilar on 59-34-3537Bcjvc TubenOhioHealSouthview Medical CenterED Prov Noteon 05-55-2433ER Prov NoteNormDupont HospitalESR Westergren method (Bld) [Velocity]on 52-07-3502BEW (Bld) [Velocity]58 mm/hHigh [facility] HospitalInterpretation and review of laboratory resultsAbnormalOhiAKealth [facility] AND Paulino 04-26-2024H AND PNormalOaklawn Psychiatric CenterNo Panel Informationon 66-47-6735Hetcs TubeHold for add-ons.OhioHealthComment on above: Auto resulted.OhioHealthInterpretation and review of laboratory resultsAbnormal OhioHealthOhioHealthSEDIMENTATION RATEon 64-14-9864NJTWMFRXXURHP RATE, OEQNBKQQTUO42 mm/hrHigh0-20[facility] CenterComment on above:Performed By: #### [id number] ####[facility] [address] [address] Abbi Choudhary M.D. [id number] FOOT LEFT 3+ VIEWS (STANDARD)on 16-54-6984TE FOOT LEFT 3+ VIEWS (STANDARD)[facility] HospitalComment on above:Order Comment: Injury/Trauma or Illness?:Illness/OtherPatient arrives with EMS ([facility] She ambulated off of EMS cot [...] symptoms (acute/chronic)?:AcuteReason for exam?:Patient arrives with EMS ([facility]). She ambulated offof EMS cot with [...] Exam?:InitialAdditional signs and symptoms?:Patient arrives with EMS ([facility]). She ambulated off of EMS cot [...] clear drainage.XR Foot - left 3 Viewson [id number]/ 1. 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 She ambulated off of EMS cot [...] signs and symptoms: Patient arrives with EMS ([facility]). She ambulated off of EMS cotwith [...] Reason for exam: Patient arrives with EMS ([facility]). She ambulated off of EMS cot [...] signs and symptoms: Patient arrives with EMS ([facility]). She ambulated off of EMS cotwith [...] bony abnormality is seen. Workstation ID: [id number] [facility] HospitalRadiology Study observation (narrative)[facility] HospitalXR Foot - left 3 ViewsOrdered By: Agustin Andrea on [phone] Work Phone: CBCon [phone] NRBC0.0 %NormalOaklawn Psychiatric CenterComment on above:Performed By: #### [id number] ####[facility] [address] [address] Abbi Choudhary M.D. [id number] NRBC ABS COUNT0.00 K/mcL Normal0.00-0.00[facility] HospitalComment on above:Performed By: #### [id number] ####[facility] [address] [address] Abbi Choudhary M.D. 36D0 146298Wilheykdqcz distribution width (RBC) [Ratio]13.1 %Pmaumk85.6-14.8[facility] HospitalComment on above:Performed By: #### [id number] ####[facility] [address] [address] Abbi Choudhary M.D. [id number] (Bld) [Volume fraction]26.7 %Low36.0-46.0Oaklawn Psychiatric CenterComment on above: Performed By: #### 03211 ####[facility] [address] [address] Abbi Choudhary M.D. [id number] (Bld) [Mass/Vol]8.9 g/dLLow12.0-16.0O[facility]lawn Psychiatric CenterComment on above:Performed By: #### [id number] ####[facility] [address] [address] Abbi Choudhary M.D. [id number] (RBC) [Entitic mass]31.1 zsLxzldl06.0-34.0O[facility]lawn Psychiatric CenterComment on above: Performed By: #### 82774 ####[facility] [address] [address] Abbi Choudhary M.D. [id number] (RBC) [Entitic vol]93.4 tSMjcbnc76.0-100.0O[facility]lawn Psychiatric CenterComment on above:Performed By: #### [id number] ####[facility] [address] [address] Abbi Choudhary M.D. [id number] CORPUSCULAR HEMOGLOBIN CONC33.3 g/wMKhvnuq61.0-37.0O[facility]wn Psychiatric CenterComment on above: Performed By: #### [id number] ####[facility] [address] [address] Abbi Choudhary M.D. [id number] mean volume (Bld) [Entitic vol]9.6 fLNormal 9.4-12.4O[facility] Psychiatric CenterComment on above:Performed By: #### [id number] ####[facility] [address] [address] Abbi Choudhary M.D. [id number] Platelets (Bld) [#/Vol]256 10*3/iOSytvgt717-728ZxiuejOaklawn Psychiatric CenterComment on above:Performed By: #### 05936 ####[facility] [address] [address] Abbi Choudhary M.D. [id number] (Bld) [#/Vol]2.86 10*6/uLLow4.00-5.20 [facility] Psychiatric CenterComsheridan community hospital on above:Performed By: #### [id number] ####[facility] [address] [address] Abbi Choudhary M.D. [id number] (Bld) [#/Vol]7.11 10*3/uLNormal4.50-11.00O[facility]wn Psychiatric CenterComment on above: Performed By: #### [id number] ####[facility] [address] [address] Abbi Choudhary M.D. [id number] panel Auto (Bld)on 26-43-8960Nojtfnokodv distribution width (RBC) [Entitic vol]13.1 %11.6 - [...] [#/Vol]2.86 10*6/uLLowOhioHealthWBC (Bld) [#/Vol] 7.11 10*3/uLOhioHealthOhioHealthDisch Sum[place] 95-54-7241Ylvls [facility] HospitalRENAL FUNCTION PANELon 21-55-0830Ulxzohy [Mass/Vol]3.2 g/dL Normal3.2-5.2MDaviess Community HospitalComsheridan community hospital on above:Order Comment: [facility] has implemented the eGFR calculation approach that does not have a coefficient for race that conforms to the NKF-ASN Task Force Recommendations.Performed By: #### [id number] ####[facility] [address] [address] Abbi Choudhary M.D. [id number] gap [Moles/Vol]12 mmol/LNormal -[facility] on above:Order Comment: [facility] has implemented the eGFR calculation approach that does not have a coefficient for race that conforms to the NKF-ASN Task Force Recommendations.Performed By: #### [id number] ####[facility] [address] [place], [place] [address] Abbi Choudhary M.D. [id number] [Mass/Vol]8.4 mg/dLNormal 8.4-10.2MDaviess Community HospitalComsheridan community hospital on above:Order Comment: [facility] has implemented the eGFR calculation approach that does not have a coefficient for race that conforms to the NKF-ASN Task Force Recommendations.Performed By: #### [id number] #### LAB [address] [place], [place] [address] Abbi Choudhary M.D. [id number] [Moles/Vol]105 mmol/LNormal 98-108Oaklawn Psychiatric CenterComment on above:Order Comment: [facility] has implemented the eGFR calculation approach that does not have a coefficient for race that conforms to the NKF-ASN Task Force Recommendations.Performed By: #### 97110 ####[facility] [address] [place], [place] [address] Abbi Choudhary M.D. [id number] [Mass/Vol]1.34 mg/dLHigh 0.40-1.10O[facility] Psychiatric CenterComment on above:Order Comment: [facility] has implemented the eGFR calculation approach that does not have a coefficient for race that conforms to the NKF-ASN Task Force Recommendations.Performed By: #### 80434 ####[facility] [address] [address] Abbi Choudhary M.D. [id number] mL/min/1.73 m2Low>=60Oaklawn Psychiatric CenterComment on above:Order Comment: [facility] has implemented the eGFR calculation approach that does not have a coefficient for race that conforms to the NKF-ASN Task Force Recommendations.Result Comment: Estimated GFR was calculated using the 2020 CKD-EPI creatinine equation. Performed By: #### [id number] ####[facility] [address] [place], [place] [address] Abbi Choudhary M.D. [id number] [Mass/Vol]245 mg/lNDwir08-22OpryayDaviess Community HospitalComsheridan community hospital on above:Order Comment: [facility] has implemented the eGFR calculation approach that does not have a coefficient for race that conforms to the NKF-ASN Task Force Recommendations.Performed By: #### [id number] ####[facility] [address] [place], [place] [address] Abbi Choudhary M.D. [id number] (Bld) [Moles/Vol]28 mmol/RWtdtpb28-75AdwrngOaklawn Psychiatric Center Comment on above:Order Comment: [facility] has implemented the eGFR calculation approach that does not have a coefficient for race that conforms to the NKF-ASN Task Force Recommendations.Performed By: #### [id number] ####[facility] [address] [address] Abbi Choudhary M.D. 36D0 [id number] [Mass/Vol]3.8 mg/dLNormal2.7-4.5[facility] on above:Order Comment: [facility] has implemented the eGFR calculation approach that does not have a coefficient for race that conforms to the NKF-ASN Task Force Recommendations.Performed By: #### 79023 ####[facility] [address] [address] Abbi Choudhary M.D. [id number] [Moles/Vol]4.0 mmol/LNormal3.5-5.1MSt. [facility]'s [facility] on above:Order Comment: [facility] has implemented the eGFR calculation approach that does not have a coefficient for race that conforms to the NKF-ASN Task Force Recommendations.Performed By: #### [id number] ####[facility] [address] [address] Abbi Choudhary M.D. [id number] [Moles/Vol]141 mmol/JVbvxqo518-008GeyulyParkview Noble Hospital on above:Order Comment: [facility] has implemented the eGFR calculation approach that does not have a coefficient for race that conforms to the NKF-ASN Task Force Recommendations.Performed By: #### [id number] ####[facility] [address] [address] Abbi Choudhary M.D. [id number] nitrogen [Mass/Vol]20 mg/dLNormal8-25[facility] on above:Order Comment: [facility] has implemented the eGFR calculation approach that does not have a coefficient for race that conforms to the NKF-ASN Task Force Recommendations.Performed By: #### [id number] ####[facility] [address] [address] Abbi Choudhary M.D. [id number] nitrogen/Creatinine [Mass ratio]14.9 mg/zxWlifpb32.0-20.0[facility] on above:Order Comment: [facility] has implemented the eGFR calculation approach that does not have a coefficient for race that conforms to the NKF-ASN Task Force Recommendations.Performed By: #### [id number] ####[facility] [address] [address] Abbi Choudhary M.D. [id number] function 2000 panel on 48-88-9277Emhdarz [Mass/Vol]3.2 g/dL3.2 - 5.2 g/dLOhioHealthAnion gap [Moles/Vol]12 mmol/L10 - 20 mmol/LOhioHealthCalcium [Mass/Vol]8.4 mg/dL8.4 - 10.2 mg/dLOhioHealthChloride [Moles/Vol]105 mmol/L98 - 108 mmol/LOhioHealth Creatinine [Mass/Vol]1.34 mg/dLHigh0.40 - 1.10 mg/dLOhioHealthGFR/1.73 sq M.predicted CKD-EPI (S/P/Bld) [Vol rate/Area]50Low- PINFOhioHealthGlucose [Mass/Vol]245 mg/bVDjie74 - 99 mg/dLOhioHealthHCO3 [Moles/Vol]28 mmol/L21 - 32 mmol/LOhioHealthInterpretation and review of laboratory resultsAbnormal OhioHealthPhosphate [Mass/Vol]3.8 mg/dL2.7 - 4.5 mg/dLOhioHealthPotassium [Moles/Vol]4 mmol/L3.5 - 5.1 mmol/LOhioHealthSodium [Moles/Vol]141 mmol/L135 - 145 mmol/LOhioHealthUrea nitrogen [Mass/Vol]20 mg/dL8 - 25 mg/dLOhioHealthUrea nitrogen/Creatinine [Mass ratio]14.9 mg/mg10.0 - 20.0OhioHealthOhioHealth [facility] HospitalSurgical Site Aerobic CultureOrdered By: Maria T Matamoros on 04-04-2024 Bacteria identified Aer cx Nom (Unsp spec)Rare growth Staphylococcus epidermidis AbnormalOhioHealthInterpretation and review of laboratory resultsAbnormal OhioHealthMicroscopic observation Gram stain Nom (Unsp spec)Many WBCOhioHealth Microscopic observation Gram stain Nom (Unsp spec)Many RBCOhioHealthMicroscopic observation Gram stain Nom (Unsp spec)No Organisms SeenOhioHealthOhioHealthCBCon 07-05-5334GTMS NRBC0.0 %NormalOaklawn Psychiatric CenterComment on above:Performed By: #### [id number] ####[facility] [address] [address] Abbi Choudhary M.D. [id number] NRBC ABS COUNT0.00 K/mcLNormal0.00-0.00[facility] Psych[facility] CenterComment on above:Performed By: #### [id number] ####[facility] [address] [address] Abbi Choudhary M.D. [id number] distribution width (RBC) [Ratio]13.5 %Qykuoq69.6-14.8O[facility] Psychiatric CenterComment on above: Performed By: #### [id number] #### LAB [address] [address] Abbi Choudhary M.D. [id number] (Bld) [Volume fraction]26.8 %Low36.0-46.0 [facility] Psychiatric CenterComment on above:Performed By: #### 59439 #### [facility] [address] [address] Abbi Choudhary M.D. [id number] (Bld) [Mass/Vol]8.8 g/dLLow12.0-16.0[facility] Psych[facility] CenterComment on above: Performed By: #### [id number] ####[facility] [address] [address] Abbi Choudhary M.D. [id number] (RBC) [Entitic mass]31.1 wwReckca88.0-34.0[facility] Psychiatric CenterComment on above:Performed By: #### 40725 #### [facility] [address] [address] Abbi Choudhary M.D. [id number] (RBC) [Entitic vol]94.7 cJJrbbpb19.0-100.0[facility] Psych[facility] CenterComment on above: Performed By: #### 01788 ####[facility] [address] [address] Abbi Choudhary M.D. [id number] CORPUSCULAR HEMOGLOBIN CONC32.8 g/dLNormal 31.0-37.0[facility] Psychiatric CenterComment on above:Performed By: #### [id number] ####[facility] [address] [address] Abbi Choudhary M.D. 36D0 137812Bphncoju mean volume (Bld) [Entitic vol]9.5 fLNormal9.4-12.4[facility] CenterComment on above:Performed By: #### 27612 ####[facility] [address] [address] Abbi Choudhary M.D. [id number] (Bld) [#/Vol]277 10*3/gVZlhglg443-933ZrccijOaklawn Psychiatric CenterComment on above:Performed By: #### 25888 ####[facility] [address] [address] Abbi Choudhary M.D. [id number] (Bld) [#/Vol]2.83 10*6/uLLow4.00-5.20[facility] Comment on above:Performed By: #### [id number] ####[facility] [address] [address] Abbi Choudhary M.D. [id number] (Bld) [#/Vol]7.63 10*3/uLNormal 4.50-11.00[facility] CenterComment on above:Performed By: #### [id number] ####[facility] [address] [address] Abbi Choudhary M.D. 36D0 [id number] panel Auto (Bld)on 51-07-6022Lgbjfmhhwwe distribution width (RBC) [Entitic vol]13.5 %11.6 - [...] 2.83 10*6/uLLowOhioHealthWBC (Bld) [#/Vol]7.63 10*3/uLOhioHealthOhioHealthRENAL FUNCTION PANELon 11-19-5626Ihpzqmo [Mass/Vol]3.2 g/dLNormal3.2-5.2MDaviess Community HospitalComment on above:Order Comment: [facility] has implemented the eGFR calculation approach that does not have a coefficient for race that conforms to the NKF-ASN Task Force Recommendations.Performed By: #### 06904 ####[facility] [address] [address] Abbi Choudhary M.D. [id number] gap [Moles/Vol]11 mmol/INbbmuo28-32OxjwujOaklawn Psychiatric Center Comment on above:Order Comment: [facility] has implemented the eGFR calculation approach that does not have a coefficient for race that conforms to the NKF-ASN Task Force Recommendations.Performed By: #### 01366 #### [facility] [address] [place], [place] [address] Abbi Choudhary M.D. 36D0 [id number] [Mass/Vol]8.2 mg/dLLow8.4-10.2[facility] HospitalComment on above:Order Comment: [facility] has implemented the eGFR calculation approach that does not have a coefficient for race that conforms to the NKF-ASN Task Force Recommendations.Performed By: #### [id number] ####[facility] [address] [place], [place] [address] Abbi Choudhary M.D. [id number] [Moles/Vol]106 mmol/MFixscn35-728JhdmxcParkview Noble Hospital on above:Order Comment: [facility] has implemented the eGFR calculation approach that does not have a coefficient for race that conforms to the NKF-ASN Task Force Recommendations.Performed By: #### [id number] ####[facility] [address] [place], [place] [address] Abbi Choudhary M.D. [id number] [Mass/Vol]1.65 mg/dLHigh0.40-1.10[facility] on above:Order Comment: [facility] has implemented the eGFR calculation approach that does not have a coefficient for race that conforms to the NKF-ASN Task Force Recommendations.Performed By: #### 64211 ####[facility] [address] [place], [place] [address] Abbi Choudhary M.D. [id number] mL/min/1.73 m2Low>=60 [facility] on above:Order Comment: [facility] has implemented the eGFR calculation approach that does not have a coefficient for race that conforms to the NKF-ASN Task Force Recommendations. Result Comment: Estimated GFR was calculated using the 2020 CKD-EPI creatinine equation.Performed By: #### [id number] ####[facility] [address] [place], [place] [address] Abbi Choudhary M.D. [id number] [Mass/Vol]206 mg/kQSdut55-07EswxpeSt. Mary's Warrick Hospital on above:Order Comment: [facility] has implemented the eGFR calculation approach that does not have a coefficient for race that conforms to the NKF-ASN Task Force Recommendations.Performed By: #### [id number] ####[facility] [address] [place], [place] [address] Abbi Choudhary M.D. [id number] (Bld) [Moles/Vol]28 mmol/KWillxn22-75McsunzOaklawn Psychiatric Center Comment on above:Order Comment: [facility] has implemented the eGFR calculation approach that does not have a coefficient for race that conforms to the NKF-ASN Task Force Recommendations.Performed By: #### [id number] ####[facility] [address] [address] Abbi Choudhary M.D. 36D0 [id number] [Mass/Vol]4.4 mg/dLNormal2.7-4.5[facility] on above:Order Comment: [facility] has implemented the eGFR calculation approach that does not have a coefficient for race that conforms to the NKF-ASN Task Force Recommendations.Performed By: #### [id number] ####[facility] [address] [place] [address] Abbi Choudhary M.D. [id number] [Moles/Vol]3.7 mmol/LNormal3.5-5.1MNeuroDiagnostic Institutement on above:Order Comment: [facility] has implemented the eGFR calculation approach that does not have a coefficient for race that conforms to the NKF-ASN Task Force Recommendations.Performed By: #### 71837 ####[facility] [address] [address] Abbi Choudhary M.D. [id number] [Moles/Vol]141 mmol/JByfxhy285-376ItzzuxOaklawn Psychiatric CenterComsheridan community hospital on above:Order Comment: [facility] has implemented the eGFR calculation approach that does not have a coefficient for race that conforms to the NKF-ASN Task Force Recommendations.Performed By: #### 39509 ####[facility] [address] [place], [place] [address] Abbi Choudhary M.D. [id number] nitrogen [Mass/Vol]19 mg/dLNormal8-25[facility] on above:Order Comment: [facility] has implemented the eGFR calculation approach that does not have a coefficient for race that conforms to the NKF-ASN Task Force Recommendations.Performed By: #### [id number] ####[facility] [address] [place], [place] [address] Abbi Choudhary M.D. [id number] nitrogen/Creatinine [Mass ratio]11.5 mg/zjBgfgdw87.0-20.0[facility] Psychiatric CenterComment on above:Order Comment: [facility] has implemented the eGFR calculation approach that does not have a coefficient for race that conforms to the NKF-ASN Task Force Recommendations.Performed By: #### 82380 ####[facility] [address] [place], [place] [address] Abbi Choudhary M.D. [id number] function 2000 panel on 80-42-5252Aoouhom [Mass/Vol]3.2 g/dL3.2 - 5.2 g/dLOhioHealthAnion gap [Moles/Vol]11 mmol/L10 - 20 mmol/LOhioHealthCalcium [Mass/Vol]8.2 mg/dLLow8.4 - 10.2 mg/dLOhioHealthChloride [Moles/Vol]106 mmol/L98 - 108 mmol/LOhioHealth Creatinine [Mass/Vol]1.65 mg/dLHigh0.40 - 1.10 mg/dLOhioHealthGFR/1.73 sq M.predicted CKD-EPI (S/P/Bld) [Vol rate/Area]39Low- PINFOhioHealthGlucose [Mass/Vol]206 mg/mLEpwf13 - 99 mg/dLOhioHealthHCO3 [Moles/Vol]28 mmol/L21 - 32 mmol/LOhioHealthInterpretation and review of laboratory resultsAbnormal [facility] HospitalPhosphate [Mass/Vol]4.4 mg/dL2.7 - 4.5 mg/dLOhioHealthPotassium [Moles/Vol]3.7 mmol/L3.5 - 5.1 mmol/LOhioHealthSodium [Moles/Vol]141 mmol/L135 - 145 mmol/LOhioHealthUrea nitrogen [Mass/Vol]19 mg/dL8 - 25 mg/dLOhioHealthUrea nitrogen/Creatinine [Mass ratio]11.5 mg/mg10.0 - 20.0OhioHealthOhioHealth [facility] 77-97-8640YEPA NRBC0.0 %NormalMarion General HospitalComment on above:Performed By: #### [id number] ####[facility] [address] [place], [place] [address] Abbi Choudhary M.D. [id number] NRBC ABS COUNT0.00 K/mcLNormal0.00-0.00 [facility] CenterComment on above:Performed By: #### [id number] ####[facility] [address] [address] Abbi Choudhary M.D. [id number] distribution width (RBC) [Ratio]13.1 %Glsfpt62.6-14.8[facility] Comment on above:Performed By: #### [id number] ####[facility] [address] [address] Abbi Choudhary M.D. [id number] (Bld) [Volume fraction] 26.0 %Low36.0-46.0[facility] Psychiatric CenterComment on above:Performed By: #### 06522 ####[facility] [address] [place], [place] [address] Abbi Choudhary M.D. [id number] (Bld) [Mass/Vol]8.9 g/dLLow12.0-16.0[facility] Comment on above:Performed By: #### [id number] ####[facility] [address] [address] Abbi Choudhary M.D. [id number] (RBC) [Entitic mass]31.2 pg Jkaqgp58.0-34.0[facility]iatric CenterComment on above:Performed By: #### 59746 ####[facility] [address] [address] Abbi Choudhary M.D. 36D0 [id number] (RBC) [Entitic vol]91.2 uZOpxolb58.0-100.0[facility] Comment on above:Performed By: #### 51025 #### [facility] [address] [place] [address] Abbi Choudhary M.D. [id number] CORPUSCULAR HEMOGLOBIN CONC34.2 g/jAExdwqq73.0-37.0[facility] CenterComment on above:Performed By: #### 06756 ####[facility] [address] [address] Abbi Choudhary M.D. [id number] mean volume (Bld) [Entitic vol]9.2 fLLow9.4-12.4[facility] CenterComment on above:Performed By: #### 88300 ####[facility] [address] [address] Abbi Choudhary M.D. [id number] (Bld) [#/Vol]277 10*3/dSTgnssf297-081NmtopwOaklawn Psychiatric CenterComment on above:Performed By: #### [id number] ####[facility] [address] [address] Abbi Choudhary M.D. [id number] (Bld) [#/Vol]2.85 10*6/uLLow4.00-5.20[facility] CenterComment on above:Performed By: #### [id number] ####[facility] [address] [address] Abbi Choudhary M.D. [id number] (Bld) [#/Vol]7.42 10*3/uL Normal4.50-11.00[facility] Psychiatric CenterComment on above:Performed By: #### 51241 ####[facility] [address] [address] Abbi Choudhary M.D. 36D0 [id number] panel Auto (Bld)on 59-68-9442Qypbqdmkyic distribution width (RBC) [Entitic vol]13.1 %11.6 - 14.8 %OhioHealthHematocrit (Bld) [Volume fraction]26 % Low36.0 - 46.0 %OhioHealthHemoglobin (Bld) [Mass/Vol]8.9 g/dLLow12.0 - 16.0 g/dL [facility] HospitalInterpretation and review of laboratory resultsAbnormalOhioHealthMCH (RBC) [Entitic mass]31.2 pg26.0 - 34.0 pgOhioHealthMCHC (RBC) [Mass/Vol]34.2 g/dL31.0 - 37.0 g/dLOhioHealthMCV (RBC) [Entitic vol]91.2 fL80.0 - 100.0 fL OhioHealthNucleated RBC (Bld) [#/Vol]0 10*3/uLOhioHealthNucleated RBC/100 WBC (Bld) [Ratio]0 %OhioHealthPlatelet mean volume (Bld) [Entitic vol]9.2 fLLow9.4 - 12.4 fLOhioHealthPlatelets (Bld) [#/Vol]277 10*3/uLOhioHealthRBC (Bld) [#/Vol] 2.85 10*6/uLLowOhioHealthWBC (Bld) [#/Vol]7.42 10*3/uLOhioHealthOhioHealth Glucose (Bld) [Mass/Vol]on 11-00-7220Lvvhhos [Mass/Vol]239 mg/fTFwhx39 - 99 mg/dLOhioHealthInterpretation and review of laboratory resultsAbnoCincinnati Shriners Hospital GLUCOSE - [facility] MARY HOSPITALSon 03-87-3598Uuvzhyw [Mass/Vol]239 mg/sCEmtf85-12 [facility] CenterComment on above:Performed By: #### 87572 ####[facility] [address] [place], [place] [address] Abbi Choudhary M.D. [id number] FUNCTION PANELon 19-37-1295Zbbrobf [Mass/Vol]3.2 g/dLNoal3.2-5.2MDaviess Community HospitalComment on above:Order Comment: [facility] has implemented the eGFR calculation approach that does not have a coefficient for race that conforms to the NKF-ASN Task Force Recommendations.Performed By: #### 43975 ####[facility] [address] [place], [place] [address] Abbi Choudhary M.D. [id number] gap [Moles/Vol]11 mmol/KYqapaw04-32KaufukOaklawn Psychiatric Center Comment on above:Order Comment: [facility] has implemented the eGFR calculation approach that does not have a coefficient for race that conforms to the NKF-ASN Task Force Recommendations.Performed By: #### [id number] ####[facility] [address] [place], [place] [address] Abbi Choudhary M.D. 36D0 [id number] [Mass/Vol]8.3 mg/dLLow8.4-10.2MSt. [facility]'s [facility] on above:Order Comment: [facility] has implemented the eGFR calculation approach that does not have a coefficient for race that conforms to the NKF-ASN Task Force Recommendations.Performed By: #### [id number] ####[facility] [address] [place] [address] Abbi Choudhary M.D. [id number] [Moles/Vol]107 mmol/AGcpykw03-474HjjjzlParkview Noble Hospital on above:Order Comment: [facility] has implemented the eGFR calculation approach that does not have a coefficient for race that conforms to the NKF-ASN Task Force Recommendations.Performed By: #### [id number] ####[facility] [address] [place] [address] Abbi Choudhary M.D. [id number] [Mass/Vol]1.63 mg/dLHigh0.40-1.10[facility] on above:Order Comment: [facility] has implemented the eGFR calculation approach that does not have a coefficient for race that conforms to the NKF-ASN Task Force Recommendations.Performed By: #### [id number] ####[facility] [address] [place], [place] [address] Abbi Choudhary M.D. [id number] mL/min/1.73 m2Low>=60 [facility] on above:Order Comment: [facility] has implemented the eGFR calculation approach that does not have a coefficient for race that conforms to the NKF-ASN Task Force Recommendations. Result Comment: Estimated GFR was calculated using the 2020 CKD-EPI creatinine equation.Performed By: #### [id number] ####[facility] [address] [place] [address] Abbi Choudhary M.D. [id number] [Mass/Vol]233 mg/jYMkqm04-34MqghvaNeuroDiagnostic Institutement on above:Order Comment: [facility] has implemented the eGFR calculation approach that does not have a coefficient for race that conforms to the NKF-ASN Task Force Recommendations.Performed By: #### [id number] ####[facility] [address] [place] [address] Abbi Choudhary M.D. [id number] (Bld) [Moles/Vol]29 mmol/PNftkmw35-31QhuyoxOaklawn Psychiatric Center Comment on above:Order Comment: [facility] has implemented the eGFR calculation approach that does not have a coefficient for race that conforms to the NKF-ASN Task Force Recommendations.Performed By: #### [id number] ####[facility] [address] [place] [address] Abbi Choudhary M.D. 36D0 333686Qjofezjkw [Mass/Vol]3.8 mg/dLNormal2.7-4.5[facility] on above:Order Comment: [facility] has implemented the eGFR calculation approach that does not have a coefficient for race that conforms to the NKF-ASN Task Force Recommendations.Performed By: #### 07560 ####[facility] [address] [place] [address] Abbi Choudhary M.D. [id number] [Moles/Vol]3.7 mmol/LNormal3.5-5.1MDaviess Community HospitalComsheridan community hospital on above:Order Comment: [facility] has implemented the eGFR calculation approach that does not have a coefficient for race that conforms to the NKF-ASN Task Force Recommendations.Performed By: #### [id number] ####[facility] [address] [place], [place] [address] Abbi Choudhary M.D. [id number] [Moles/Vol]143 mmol/SLrrchp303-606CqkiwdParkview Noble Hospital on above:Order Comment: [facility] has implemented the eGFR calculation approach that does not have a coefficient for race that conforms to the NKF-ASN Task Force Recommendations.Performed By: #### 10476 ####[facility] [address] [place], [place] [address] Abbi Choudhary M.D. [id number] nitrogen [Mass/Vol]14 mg/dLNormal8-25Oaklawn Psychiatric CenterComment on above:Order Comment: [facility] has implemented the eGFR calculation approach that does not have a coefficient for race that conforms to the NKF-ASN Task Force Recommendations.Performed By: #### [id number] ####[facility] [address] [place], [place] [address] Abbi Choudhary M.D. [id number] nitrogen/Creatinine [Mass ratio]8.6 mg/mgLow10.0-20.0[facility] on above:Order Comment: [facility] has implemented the eGFR calculation approach that does not have a coefficient for race that conforms to the NKF-ASN Task Force Recommendations.Performed By: #### [id number] ####[facility] [address] [place], [place] [address] Abbi Choudhary M.D. [id number] function 2000 panel on 60-17-2148Vyehlca [Mass/Vol]3.2 g/dL3.2 - 5.2 g/dLOhioHealthAnion gap [Moles/Vol]11 mmol/L10 - 20 mmol/LOhioHealthCalcium [Mass/Vol]8.3 mg/dLLow8.4 - 10.2 mg/dLOhioHealthChloride [Moles/Vol]107 mmol/L98 - 108 mmol/LOhioHealth Creatinine [Mass/Vol]1.63 mg/dLHigh0.40 - 1.10 mg/dLOhioHealthGFR/1.73 sq M.predicted CKD-EPI (S/P/Bld) [Vol rate/Area]39Low- PINFOhioHealthGlucose [Mass/Vol]233 mg/fOBndg75 - 99 mg/dLOhioHealthHCO3 [Moles/Vol]29 mmol/L21 - 32 mmol/LOhioHealthInterpretation and review of laboratory resultsAbnormal OhioHealthPhosphate [Mass/Vol]3.8 mg/dL2.7 - 4.5 mg/dLOhioHealthPotassium [Moles/Vol]3.7 mmol/L3.5 - 5.1 mmol/LOhioHealthSodium [Moles/Vol]143 mmol/L135 - 145 mmol/LOhioHealthUrea nitrogen [Mass/Vol]14 mg/dL8 - 25 mg/dLOhioHealthUrea nitrogen/Creatinine [Mass ratio]8.6 mg/mgLow10.0 - 20.0OhioHealthNvioHealth OhioHealthXR Foot - left 3 Viewson 52-28-8570OP RISGE RISOhioHealthXR Foot - left 3 ViewsOrdered By: Augustine Mittal on 56-55-2502EibdUdvlwg Work Phone: CBFormerly [facility], [facility] 90-63-4985DMCI NRBC0.0 %NormalOaklawn Psychiatric CenterComment on above:Performed By: #### [id number] ####[facility] [address] [place] [address] Abbi Choudhary M.D. [id number] NRBC ABS COUNT0.00 K/mcL Normal0.00-0.00Oaklawn Psychiatric CenterComment on above:Performed By: #### [id number] ####[facility] [address] [place] [address] Abbi Choudhary M.D. 36D0 544225Gmhwevvuhix distribution width (RBC) [Ratio]13.0 %Zwupmk78.6-14.8Oaklawn Psychiatric CenterComment on above:Performed By: #### 28006 ####[facility] [address] [place], [place] [address]Alisia Choudhary M.D. [id number] (Bld) [Volume fraction]27.2 %Low36.0-46.0[facility] HospitalComment on above: Performed By: #### [id number] ####[facility] [address] [place], [place] [address]Alisia Choudhary M.D. [id number] (Bld) [Mass/Vol]9.2 g/dLLow12.0-16.0[facility] HospitalComment on above:Performed By: #### 67594 ####[facility] [address] [place] [address] Abbi Choudhary M.D. [id number] (RBC) [Entitic mass]30.9 rpYvjjob89.0-34.0O[facility]lawn Psychiatric CenterComment on above: Performed By: #### [id number] ####[facility] [address] [place] [address] Abbi Choudhary M.D. [id number] (RBC) [Entitic vol]91.3 pJZdjuda05.0-100.0O[facility]lawn Psychiatric CenterComment on above:Performed By: #### [id number] ####[facility] [address] [place] [address] Abbi Choudhary M.D. [id number] CORPUSCULAR HEMOGLOBIN CONC33.8 g/jOAoaaga31.0-37.0Oaklawn Psychiatric CenterComment on above: Performed By: #### [id number] ####[facility] [address] [place] [address] Abbi Choudhary M.D. [id number] mean volume (Bld) [Entitic vol]8.8 fLLow 9.4-12.4Oaklawn Psychiatric CenterComment on above:Performed By: #### [id number] ####[facility] [address] [place] [address] Abbi Choudhary M.D. [id number] Platelets (Bld) [#/Vol]252 10*3/nNGfarbs561-340UovctqOaklawn Psychiatric CenterComment on above:Performed By: #### [id number] ####[facility] [address] [place] [address] Abbi Choudhary M.D. [id number] (Bld) [#/Vol]2.98 10*6/uLLow4.00-5.20 [facility] CenterComment on above:Performed By: #### [id number] ####[facility] [address] [place] [address] Abbi Choudhary M.D. [id number] (Bld) [#/Vol]6.99 10*3/uLNormal4.50-11.00[facility] HospitalComment on above: Performed By: #### [id number] ####[facility] [address] [place] [address] Abbi Choudhary M.D. [id number] panel Auto (Bld)on 99-53-6097Ypybgzmdlgc distribution width (RBC) [Entitic vol]13 %11.6 - [...] [#/Vol]6.99 10*3/uLOhioHealthOhioHealthCT Foot - left WO contraston 25-14-1015GI RISGE RISOhioHealthCT Foot - left WO contrastOrdered By: Kavin Duncan on 35-84-2629UpzoFvuiay Work Phone: Glucose (Bld) [Mass/Vol]on 34-58-8557Ncyhjcl [Mass/Vol]253 mg/fYWapy57 - 99 mg/dLOhioHealthInterpretation and review of laboratory resultsAbnormalOhioHealthOhioHealthGlucose [Mass/Vol]92 mg/dL65 - 99 mg/dLOhioHealthInterpretation and review of laboratory resultsNormalOhioHealSouthview Medical CenterOP NOTEon 24-50-0618DI NOTENoDeaconess HospitalPO GLUCOSE - RALSon 35-19-8078Ztdlaut [Mass/Vol]253 mg/pBQhzv14-59Qdzaoh[address] [place] [address] Comment on above:Performed By: #### [id number] ####[facility] [address] [place], [place] [address] Abbi Choudhary M.D. [id number] [Mass/Vol]92 mg/dLNormal [address] [place], [place] [address]Comment on above:Performed By: #### [id number] ####[facility] [address] [place], [place] [address] Abbi Choudhary M.D. [id number] FUNCTION PANELon 64-05-1097Zqaqjmp [Mass/Vol]3.3 g/dLNormal3.2-5.2MDaviess Community HospitalComment on above:Order Comment: [facility] has implemented the eGFR calculation approach that does not have a coefficient for race that conforms to the NKF-ASN Task Force Recommendations.Performed By: #### 83132 ####[facility] [address] [place], [place] [address] Abbi Choudhary M.D. [id number] gap [Moles/Vol]12 mmol/IGpjrjl19-01BkhwrjOaklawn Psychiatric Center Comment on above:Order Comment: [facility] has implemented the eGFR calculation approach that does not have a coefficient for race that conforms to the NKF-ASN Task Force Recommendations.Performed By: #### [id number] ####[facility] [address] [place], [place] [address] Abbi Choudhary M.D. 36D0 858259Ptaxosc [Mass/Vol]8.6 mg/dLNormal8.4-10.2MDaviess Community HospitalComsheridan community hospital on above:Order Comment: [facility] has implemented the eGFR calculation approach that does not have a coefficient for race that conforms to the NKF-ASN Task Force Recommendations.Performed By: #### 09860 ####[facility] [address] [place], [place] [address] Abbi Choudhary M.D. [id number] [Moles/Vol]108 mmol/RIvbglp26-292RdmtgxParkview Noble Hospital on above:Order Comment: [facility] has implemented the eGFR calculation approach that does not have a coefficient for race that conforms to the NKF-ASN Task Force Recommendations.Performed By: #### 90981 ####[facility] [address] [place], [place] [address] Abbi Choudhary M.D. [id number] [Mass/Vol]1.28 mg/dLHigh0.40-1.10[facility] on above:Order Comment: [facility] has implemented the eGFR calculation approach that does not have a coefficient for race that conforms to the NKF-ASN Task Force Recommendations.Performed By: #### [id number] ####[facility] [address] [place] [address] Abbi Choudhary M.D. [id number] mL/min/1.73 m2Low>=60 [facility] on above:Order Comment: [facility] has implemented the eGFR calculation approach that does not have a coefficient for race that conforms to the NKF-ASN Task Force Recommendations. Result Comment: Estimated GFR was calculated using the 2020 CKD-EPI creatinine equation.Performed By: #### 85093 ####[facility] [address] [place], [place] [address] Abbi Choudhary M.D. [id number] [Mass/Vol]162 mg/fOWraq77-14ExsqkmSt. Mary's [facility] on above:Order Comment: [facility] has implemented the eGFR calculation approach that does not have a coefficient for race that conforms to the NKF-ASN Task Force Recommendations.Performed By: #### 11034 ####[facility] [address] [place], [place] [address] Abbi Choudhary M.D. [id number] (Bld) [Moles/Vol]27 mmol/DNcfpwt29-63BhfufzOaklawn Psychiatric Center Comment on above:Order Comment: [facility] has implemented the eGFR calculation approach that does not have a coefficient for race that conforms to the NKF-ASN Task Force Recommendations.Performed By: #### [id number] ####[facility] [address] [place] [address] Abbi Choudhary M.D. 36D0 366070Dyuuvlegq [Mass/Vol]2.8 mg/dLNormal2.7-4.5[facility] on above:Order Comment: [facility] has implemented the eGFR calculation approach that does not have a coefficient for race that conforms to the NKF-ASN Task Force Recommendations.Performed By: #### [id number] ####[facility] [address] [place] [address] Abbi Choudhary M.D. [id number] [Moles/Vol]3.5 mmol/LNormal3.5-5.1MSt. Mary's [facility] on above:Order Comment: [facility] has implemented the eGFR calculation approach that does not have a coefficient for race that conforms to the NKF-ASN Task Force Recommendations.Performed By: #### [id number] ####[facility] [address] [place] [address] Abbi Choudhary M.D. [id number] [Moles/Vol]143 mmol/FJwdufp982-215NtgitwParkview Noble Hospital on above:Order Comment: [facility] has implemented the eGFR calculation approach that does not have a coefficient for race that conforms to the NKF-ASN Task Force Recommendations.Performed By: #### [id number] ####[facility] [address] [place] [address] Abbi Choudhary M.D. [id number] nitrogen [Mass/Vol]14 mg/dLNormal8-25[facility] on above:Order Comment: [facility] has implemented the eGFR calculation approach that does not have a coefficient for race that conforms to the NKF-ASN Task Force Recommendations.Performed By: #### 82136 ####[facility] [address] [place] [address] Abbi Choudhary M.D. [id number] nitrogen/Creatinine [Mass ratio]10.9 mg/slXujgvt77.0-20.0Oaklawn Psychiatric CenterComment on above:Order Comment: [facility] has implemented the eGFR calculation approach that does not have a coefficient for race that conforms to the NKF-ASN Task Force Recommendations.Performed By: #### [id number] ####[facility] [address] [place] [address] Abbi Choudhary M.D. [id number] function 2000 panel on 87-07-7803Eryaftx [Mass/Vol]3.3 g/dL3.2 - 5.2 g/dLOhioHealthAnion gap [Moles/Vol]12 mmol/L10 - 20 mmol/LOhioHealthCalcium [Mass/Vol]8.6 mg/dL8.4 - 10.2 mg/dLOhioHealthChloride [Moles/Vol]108 mmol/L98 - 108 mmol/LOhioHealth Creatinine [Mass/Vol]1.28 mg/dLHigh0.40 - 1.10 mg/dLOhioHealthGFR/1.73 sq M.predicted CKD-EPI (S/P/Bld) [Vol rate/Area]52Low- PINFOhioHealthGlucose [Mass/Vol]162 mg/sQNgcz13 - 99 mg/dLOhioHealthHCO3 [Moles/Vol]27 mmol/L21 - 32 mmol/LOhioHealthInterpretation and review of laboratory resultsAbnormal OhioHealthPhosphate [Mass/Vol]2.8 mg/dL2.7 - 4.5 mg/dLOhioHealthPotassium [Moles/Vol]3.5 mmol/L3.5 - 5.1 mmol/LOhioHealthSodium [Moles/Vol]143 mmol/L135 - 145 mmol/LOhioHealthUrea nitrogen [Mass/Vol]14 mg/dL8 - 25 mg/dLOhioHealthUrea nitrogen/Creatinine [Mass ratio]10.9 mg/mg10.0 - 20.0OhioHealthOhioHealth [facility] HospitalSURGICAL SITE AEROBIC CULTUREon 60-12-9689NCGQVZRX SITE AEROBIC CULTUREAEROBIC CULTURE STAPHYLOCOCCUS EPIDERMIDIS Rare growth Staphylococcus epidermidis See susceptibility from same source/same date. GRAM STAIN RESULT Many WBC Many RBC No Organisms SeenAbIndiana University Health Saxony HospitalComment on above:Performed By: #### [id number] ####[facility] [address] [place] [address] Swapnil Brewer M.D. [id number] EXAMon 96-68-1655JUTLMQ EXAMNoDeaconess HospitalComment on above:Performed By: #### [id number] ####[facility] [address] [place], [place] [address] Abbi Choudhary M.D. [id number] NORTH [facility]ITAL [facility] [address] [place] [address] Swapnil Brewer M.D. [id number] Aerobic And Anaerobic CultureOrdered By: Gayla Cook on 79-56-1650Dfmhdjia identified Aer cx Nom (Unsp spec)No Anaerobic Growth after 5 daysOhioHealthBacteria identified Aer cx Nom (Unsp spec)Light Growth Staphylococcus aureusAbnormalOhioHealth Bacteria identified Aer cx Nom (Unsp spec)Light Growth Normal Skin Eric OhioHealthInterpretation and review of laboratory resultsAbnormalOhioHealth Microscopic observation Gram stain Nom (Unsp spec)No WBC SeenOhioHealth Microscopic observation Gram stain Nom (Unsp spec)No Organisms SeenOhioHealth [facility] HospitalXR FOOT LEFT 3+ VIEWS (STANDARD)on 61-20-5198GI FOOT LEFT 3+ VIEWS (STANDARD)[facility] HospitalComment on above:Order Comment: Injury/Trauma or Illness?:Illness/OtherHow long have you had these symptoms (acute/chronic)?:AcuteReason for exam?:Status post amputation left hallux distal phalanxHistory of cancer?:uSurgeries, chemotherapy, or radiation?:pacemakerType of Exam?:InitialAdditional signs and symptoms?:Status post amputation left hallux distal phalanxXR Foot - left 3 Viewson 74-32-8602Miccnrwfw Study observation (narrative)OhioHealthCBFormerly [facility], [facility] 30-48-7373NQFZ NRBC0.0 %[facility] HospitalComment on above:Performed By: #### [id number] ####[facility] [address] [place], [place] [address] Abbi Choudhary M.D. [id number] NRBC ABS COUNT0.00 K/mcLNormal0.00-0.00O[facility] Psychiatric CenterComment on above:Performed By: #### [id number] ####[facility] [address] [place] [address] Abbi Choudhary M.D. [id number] distribution width (RBC) [Ratio]12.6 %Njwihl24.6-14.8 [facility] CenterComment on above:Performed By: #### [id number] ####[facility] [address] [place] [address] Abbi Choudhary M.D. [id number] (Bld) [Volume fraction]26.9 %Low36.0-46.0O[facility] Psychiatric CenterComment on above:Performed By: #### [id number] ####[facility] [address] [place] [address] Abbi Choudhary M.D. [id number] (Bld) [Mass/Vol]9.1 g/dLLow12.0-16.0 [facility] CenterComment on above:Performed By: #### 15892 ####[facility] [address] [place] [address] Abbi Choudhary M.D. [id number] (RBC) [Entitic mass]31.8 auJcwozv03.0-34.0O[facility] Psychiatric CenterComment on above: Performed By: #### [id number] ####[facility] [address] [place] [address] Abbi Choudhary M.D. [id number] (RBC) [Entitic vol]94.1 rZPnnpny46.0-100.0O[facility] Psychiatric CenterComment on above:Performed By: #### 83789 ####[facility] [address] [place] [address] Abbi Choudhary M.D. [id number] CORPUSCULAR HEMOGLOBIN CONC33.8 g/dSQxzyby70.0-37.0O[facility] Psychiatric CenterComment on above: Performed By: #### 52983 ####[facility] [address] [place] [address] Abbi Choudhary M.D. [id number] mean volume (Bld) [Entitic vol]9.6 fLNormal 9.4-12.4O[facility] Psychiatric CenterComment on above:Performed By: #### 12601 ####[facility] [address] [place] [address] Abbi Choudhary M.D. [id number] Platelets (Bld) [#/Vol]266 10*3/vEVuynfh358-225WauirlOaklawn Psychiatric CenterComment on above:Performed By: #### 95666 ####[facility] [address] [place] [address] Abbi Choudhary M.D. [id number] (Bld) [#/Vol]2.86 10*6/uLLow4.00-5.20 [facility]iatric CenterComsheridan community hospital on above:Performed By: #### 27386 ####[facility] [address] [place] [address] Abbi Choudhary M.D. [id number] (Bld) [#/Vol]6.83 10*3/uLNormal4.50-11.00[facility] Psychiatric CenterComsheridan community hospital on above: Performed By: #### 06629 ####[facility] [address] [place] [address] Abbi Choudhary M.D. [id number] panel Auto (Bld)on 26-09-8885Ochvqppcgnc distribution width (RBC) [Entitic vol]12.6 %11.6 - [...] WITHOUT CONTRASTon 03-31-2024 CT ABDOMEN PELVIS WITHOUT CONTRASTNoDeaconess HospitalComment on above: Order Comment: Injury/Trauma or Illness?:Illness/OtherHow long have you had these symptoms (acute/chronic)?:AcuteReason for exam?:Abdominal/flank pain, stone suspectedType of Exam?:InitialAdditional signs and symptoms?:Abdominal/flank pain, stone suspectedCT Abdomen and Pelvis WO contrast on 50-07-8387PX RISGE RISNvioHealthRadiology Study observation (narrative) [facility] HospitalCT Abdomen and Pelvis WO contrastOrdered By: Lawrence Coronado on 78-34-8196KxdgIkwzgx Work Phone: CT FOOT LEFT WITHOUT CONTRASTon 52-32-8500DZ FOOT LEFT WITHOUT CONTRASTPulaski Memorial HospitalComment on above:Order Comment: Injury/Trauma or Illness?:Illness/OtherHow long have you had these symptoms (acute/chronic)?:AcuteReason for exam?:osteomyelitisType of Exam?:InitialAdditional signs and symptoms?:footpainCT Foot - left WO contraston 31-81-7592Oqeumzluk Study observation (narrative)[facility] HospitalRENAL FUNCTION PANEL on 07-56-2936Lptwrtu [Mass/Vol]3.1 g/dLLow3.2-5.2[facility] HospitalComment on above:Order Comment: [facility] has implemented the eGFR calculation approach that does not have a coefficient for race that conforms to the NKF-ASN Task Force Recommendations.Performed By: #### [id number] ####[facility] [address] [place], [place] [address] Abbi Choudhary M.D. [id number] gap [Moles/Vol]9 mmol/QBzv58-23RrpvttParkview Noble Hospital on above:Order Comment: [facility] has implemented the eGFR calculation approach that does not have a coefficient for race that conforms to the NKF-ASN Task Force Recommendations.Performed By: #### [id number] ####[facility] [address] [place], [place] [address] Abbi Choudhary M.D. [id number] [Mass/Vol]8.9 mg/dLNormal8.4-10.2MSt. Mary's [facility]rick [facility] on above:Order Comment: [facility] has implemented the eGFR calculation approach that does not have a coefficient for race that conforms to the NKF-ASN Task Force Recommendations.Performed By: #### 94548 ####[facility] [address] [place], [place] [address] Abbi Choudhary M.D. [id number] [Moles/Vol]109 mmol/L Unjg48-480YlylcmParkview Noble Hospital on above:Order Comment: [facility] has implemented the eGFR calculation approach that does not have a coefficient for race that conforms to the NKF-ASN Task Force Recommendations.Performed By: #### [id number] ####[facility] [address] [place], [place] [address] Abbi Choudhary M.D. [id number] [Mass/Vol]1.22 mg/dLHigh 0.40-1.10[facility] on above:Order Comment: [facility] has implemented the eGFR calculation approach that does not have a coefficient for race that conforms to the NKF-ASN Task Force Recommendations.Performed By: #### 73432 ####[facility] [address] [place], [place] [address] Abbi Choudhary M.D. [id number] mL/min/1.73 m2Low>=60[facility] on above:Order Comment: [facility] has implemented the eGFR calculation approach that does not have a coefficient for race that conforms to the NKF-ASN Task Force Recommendations.Result Comment: Estimated GFR was calculated using the 2020 CKD-EPI creatinine equation. Performed By: #### [id number] ####[facility] [address] [place], [place] [address] Abbi Choudhary M.D. [id number] [Mass/Vol]139 mg/uVYsyr21-61MoonmxSt. Mary's [facility] on above:Order Comment: [facility] has implemented the eGFR calculation approach that does not have a coefficient for race that conforms to the NKF-ASN Task Force Recommendations.Performed By: #### [id number] ####[facility] [address] [place] [address] Abbi Choudhary M.D. [id number] (Bld) [Moles/Vol]28 mmol/RMxnlqw59-57KvxjrpOaklawn Psychiatric Center Comment on above:Order Comment: [facility] has implemented the eGFR calculation approach that does not have a coefficient for race that conforms to the NKF-ASN Task Force Recommendations.Performed By: #### [id number] ####[facility] [address] [place], [place] [address] Abbi Choudhary M.D. 36D0 667509Dyaxvuzms [Mass/Vol]2.7 mg/dLNormal2.7-4.5[facility] on above:Order Comment: [facility] has implemented the eGFR calculation approach that does not have a coefficient for race that conforms to the NKF-ASN Task Force Recommendations.Performed By: #### [id number] ####[facility] [address] [place], [place] [address] Abbi Choudhary M.D. [id number] [Moles/Vol]3.4 mmol/LLow3.5-5.1MSt. Mary's [facility] on above:Order Comment: [facility] has implemented the eGFR calculation approach that does not have a coefficient for race that conforms to the NKF-ASN Task Force Recommendations.Performed By: #### [id number] ####[facility] [address] [place], [place] [address] Abbi Choudhary M.D. [id number] [Moles/Vol]143 mmol/FVnftuv232-481UrvqtwParkview Noble Hospital on above:Order Comment: [facility] has implemented the eGFR calculation approach that does not have a coefficient for race that conforms to the NKF-ASN Task Force Recommendations.Performed By: #### [id number] ####[facility] [address] [place], [place] [address] Abbi Choudhary M.D. [id number] nitrogen [Mass/Vol]20 mg/dLNormal8-25[facility] on above:Order Comment: [facility] has implemented the eGFR calculation approach that does not have a coefficient for race that conforms to the NKF-ASN Task Force Recommendations.Performed By: #### [id number] ####[facility] [address] [place], [place] [address] Abbi Choudhary M.D. [id number] nitrogen/Creatinine [Mass ratio]16.4 mg/hfTlcnhw70.0-20.0[facility] on above:Order Comment: [facility] has implemented the eGFR calculation approach that does not have a coefficient for race that conforms to the NKF-ASN Task Force Recommendations.Performed By: #### [id number] ####[facility] [address] [place], [place] [address] Abbi Choudhary M.D. [id number] function 2000 panel on 62-83-2027Rvjxmvs [Mass/Vol]3.1 g/dLLow3.2 - 5.2 g/dLOhioHealthAnion gap [Moles/Vol]9 mmol/LLow10 - 20 mmol/LOhioHealthCalcium [Mass/Vol]8.9 mg/dL8.4 - 10.2 mg/dLOhioHealthChloride [Moles/Vol]109 mmol/LHigh98 - 108 mmol/LOhioHealth Creatinine [Mass/Vol]1.22 mg/dLHigh0.40 - 1.10 mg/dLOhioHealthGFR/1.73 sq M.predicted CKD-EPI (S/P/Bld) [Vol rate/Area]56Low- PINFOhioHealthGlucose [Mass/Vol]139 mg/yIUdsf91 - 99 mg/dLOhioHealthHCO3 [Moles/Vol]28 mmol/L21 - 32 mmol/LOhioHealthInterpretation and review of laboratory resultsAbnormal OhioHealthPhosphate [Mass/Vol]2.7 mg/dL2.7 - 4.5 mg/dLOhioHealthPotassium [Moles/Vol]3.4 mmol/LLow3.5 - 5.1 mmol/LOhioHealthSodium [Moles/Vol]143 mmol/L 135 - 145 mmol/LOhioHealthUrea nitrogen [Mass/Vol]20 mg/dL8 - 25 mg/dLOhioHealth Urea nitrogen/Creatinine [Mass ratio]16.4 mg/mg10.0 - 20.0OhioHealthOhioHealth OhioHealthBacteria identified Cx Nom (Bld)on 47-49-5961Fnwueiouiaffwu and review of laboratory resultsNormalOhioHealthOhioHealthCBCon 23-35-5099EQCY NRBC0.0 % NormalOaklawn Psychiatric CenterComment on above:Performed By: #### [id number] ####[facility] [address] [place] [address] Abbi Choudhary M.D. [id number] NRBC ABS COUNT0.00 K/mcLNormal0.00-0.00O[facility]lawn Psychiatric CenterComment on above: Performed By: #### [id number] ####[facility] [address] [place] [address] Abbi Choudhary M.D. [id number] distribution width (RBC) [Ratio]12.6 % Clqzkq94.6-14.8Oaklawn Psychiatric CenterComment on above:Performed By: #### [id number] ####[facility] [address] [place], [place] [address] Abbi Choudhary M.D. 36D0 [id number] (Bld) [Volume fraction]29.7 %Low36.0-46.0O[facility] Psychiatric CenterComment on above:Performed By: #### [id number] ####[facility] [address] [place], [place] [address] Abbi Choudhary M.D. [id number] (Bld) [Mass/Vol]9.4 g/dLLow12.0-16.0O[facility] Psychiatric CenterComment on above:Performed By: #### [id number] ####[facility] [address] [place] [address] Abbi Choudhary M.D. [id number] (RBC) [Entitic mass]30.2 hlNlneva41.0-34.0[facility] Comment on above:Performed By: #### [id number] ####[facility] [address] [place] [address] Abbi Choudhary M.D. [id number] (RBC) [Entitic vol]95.5 fLNormal 80.0-100.0O[facility] Psychiatric CenterComment on above:Performed By: #### [id number] ####[facility] [address] [place] [address] Abbi Choudhary M.D. 36D0 410124LJMH CORPUSCULAR HEMOGLOBIN CONC31.6 g/fWQhvbui54.0-37.0O[facility]wn Psychiatric CenterComment on above:Performed By: #### [id number] ####[facility] [address] [place] [address] Abbi Choudhary M.D. [id number] mean volume (Bld) [Entitic vol]9.6 fLNormal9.4-12.4O[facility]wn Psychiatric CenterComment on above: Performed By: #### [id number] ####[facility] [address] [place] [address] Abbi Choudhary M.D. [id number] (Bld) [#/Vol]263 10*3/nXXoaovt068-848IytfmfOaklawn Psychiatric CenterComment on above:Performed By: #### [id number] ####[facility] [address] [place] [address] Abbi Choudhary M.D. [id number] (Bld) [#/Vol]3.11 10*6/uLLow4.00-5.20[facility] HospitalComment on above:Performed By: #### 06029 ####[facility] [address] [place], [place] [address] Abib Choudhary M.D. [id number] (Bld) [#/Vol]6.90 10*3/uLNormal4.50-11.00O[facility]wn Psychiatric CenterComment on above:Performed By: #### [id number] ####[facility] [address] [place], [place] [address] Abbi Choudhary M.D. [id number] panel Auto (Bld)on 64-40-3387Lylxgchhxbn distribution width (RBC) [Entitic vol]12.6 %11.6 - 14.8 % [facility] HospitalHematocrit (Bld) [Volume fraction]29.7 %Low36.0 - 46.0 %[facility] Hemoglobin (Bld) [Mass/Vol]9.4 g/dLLow12.0 - 16.0 g/dLOhioHealthInterpretation and review of laboratory resultsAbnormalOhioHealthMCH (RBC) [Entitic mass]30.2 pg26.0 - 34.0 pgOhioHealthMCHC (RBC) [Mass/Vol]31.6 g/dL31.0 - 37.0 g/dL [facility] HospitalMCV (RBC) [Entitic vol]95.5 fL80.0 - 100.0 fLOhioHealthNucleated RBC (Bld) [#/Vol]0 10*3/uLOhioHealthNucleated RBC/100 WBC (Bld) [Ratio]0 %[facility] Platelet mean volume (Bld) [Entitic vol]9.6 fL9.4 - 12.4 fLOhioHealthPlatelets (Bld) [#/Vol]263 10*3/uLOhioHealthRBC (Bld) [#/Vol]3.11 10*6/uLLowOhioHealthWBC (Bld) [#/Vol]6.9 10*3/uLOhioHealthOhioHealthCONSULTon 59-06-0865VYVZZWOBolmrbFranciscan Health DyerGlucose (Bld) [Mass/Vol]on 43-16-2971Hviohkn [Mass/Vol] 250 mg/uNSfrl05 - 99 mg/dLOhioHealthInterpretation and review of laboratory resultsAbnormalOhioHealthNvioHealthGlucose [Mass/Vol]102 mg/bSErfp40 - 99 mg/dL OhioHealthInterpretation and review of laboratory resultsAbnormalOhioHealth OhioHealthGlucose [Mass/Vol]183 mg/pQStmn29 - 99 mg/dLOhioHealthInterpretation and review of laboratory resultsAbnormalOhioHealthNvioHealthGlucose [Mass/Vol] 285 mg/pEWkck82 - 99 mg/dLOhioHealthInterpretation and review of laboratory resultsAbnormMercy Health St. Elizabeth Youngstown HospitalioHealthLaboratory - Microbiology and Antimicrobial susceptibilityon 85-16-7790Maqcijyh identified Cx Nom (Bld)No Growth after 5 daysOhioOhio Valley Surgical Hospital GLUCOSE - [facility] 68-42-8561Niyxfwt [Mass/Vol]250 mg/dLHigh 65-99MDaviess Community HospitalComment on above:Performed By: #### [id number] ####[facility] [address] [place] [address] Abbi Choudhary M.D. [id number] [Mass/Vol]102 mg/wTEdaa01-41BctzdzDaviess Community HospitalComment on above:Performed By: #### [id number] ####[facility] [address] [place] [address] Abbi Choudhary M.D. [id number] [Mass/Vol]183 mg/dWPduy93-26GbnoucDaviess Community Hospital Comment on above:Performed By: #### 12902 ####[facility] [address] [place], [place] [address] Abbi Choudhary M.D. [id number] [Mass/Vol]285 mg/mQEgmv68-27 [facility] CenterComment on above:Performed By: #### [id number] ####[facility] [address] [place] [address] Abbi Choudhary M.D. [id number] FUNCTION PANELon 35-31-0067Fucdsuf [Mass/Vol]3.3 g/dLNormal3.2-5.2MDaviess Community HospitalComment on above:Order Comment: [facility] has implemented the eGFR calculation approach that does not have a coefficient for race that conforms to the NKF-ASN Task Force Recommendations.Performed By: #### [id number] ####[facility] [address] [place], [place] [address] Abbi Choudhary M.D. [id number] gap [Moles/Vol]11 mmol/TOfnblx64-64CbumopOaklawn Psychiatric Center Comment on above:Order Comment: [facility] has implemented the eGFR calculation approach that does not have a coefficient for race that conforms to the NKF-ASN Task Force Recommendations.Performed By: #### [id number] ####[facility] [address] [place], [place] [address] Abbi Choudhary M.D. 36D0 [id number] [Mass/Vol]9.1 mg/dLNormal8.4-10.2MDaviess Community HospitalComment on above:Order Comment: [facility] has implemented the eGFR calculation approach that does not have a coefficient for race that conforms to the NKF-ASN Task Force Recommendations.Performed By: #### [id number] ####[facility] [address] [place], [place] [address] Abbi Choudhary M.D. [id number] [Moles/Vol]108 mmol/LZqoyba44-888XwbbbyOaklawn Psychiatric CenterComment on above:Order Comment: [facility] has implemented the eGFR calculation approach that does not have a coefficient for race that conforms to the NKF-ASN Task Force Recommendations.Performed By: #### 48351 ####[facility] [address] [place], [place] [address] Abbi Choudhary M.D. [id number] [Mass/Vol]1.67 mg/dLHigh0.40-1.10O[facility] Psychiatric CenterComsheridan community hospital on above:Order Comment: [facility] has implemented the eGFR calculation approach that does not have a coefficient for race that conforms to the NKF-ASN Task Force Recommendations.Performed By: #### 39196 ####[facility] [address] [place], [place] [address] Abbi Choudhary M.D. [id number] mL/min/1.73 m2Low>=60 [facility] on above:Order Comment: [facility] has implemented the eGFR calculation approach that does not have a coefficient for race that conforms to the NKF-ASN Task Force Recommendations. Result Comment: Estimated GFR was calculated using the 2020 CKD-EPI creatinine equation.Performed By: #### 32046 ####[facility] [address] [place] [address] Abbi Choudhary M.D. [id number] [Mass/Vol]301 mg/eRAlyj74-98UtjjtmSt. Mary's [facility]rick Hospital on above:Order Comment: [facility] has implemented the eGFR calculation approach that does not have a coefficient for race that conforms to the NKF-ASN Task Force Recommendations.Performed By: #### [id number] ####[facility] [address] [place] [address] Abbi Choudhary M.D. [id number] (Bld) [Moles/Vol]24 mmol/FAiqwax67-54YkifcdOaklawn Psychiatric Center Comment on above:Order Comment: [facility] has implemented the eGFR calculation approach that does not have a coefficient for race that conforms to the NKF-ASN Task Force Recommendations.Performed By: #### [id number] ####[facility] [address] [place] [address] Abbi Choudhary M.D. 36D0 [id number] [Mass/Vol]3.0 mg/dLNormal2.7-4.5[facility] on above:Order Comment: [facility] has implemented the eGFR calculation approach that does not have a coefficient for race that conforms to the NKF-ASN Task Force Recommendations.Performed By: #### 71645 ####[facility] [address] [place] [address] Abbi Choudhary M.D. [id number] [Moles/Vol]4.1 mmol/LNormal3.5-5.1MSt. Mary's Warrick Hospital on above:Order Comment: [facility] has implemented the eGFR calculation approach that does not have a coefficient for race that conforms to the NKF-ASN Task Force Recommendations.Performed By: #### 57651 ####[facility] [address] [place], [place] [address] Abbi Choudhary M.D. [id number] [Moles/Vol]139 mmol/YCzwxrx254-179FroprbParkview Noble Hospital on above:Order Comment: [facility] has implemented the eGFR calculation approach that does not have a coefficient for race that conforms to the NKF-ASN Task Force Recommendations.Performed By: #### [id number] ####[facility] [address] [place], [place] [address] Abbi Choudhary M.D. [id number] nitrogen [Mass/Vol]29 mg/dLHigh8-25[facility] on above:Order Comment: [facility] has implemented the eGFR calculation approach that does not have a coefficient for race that conforms to the NKF-ASN Task Force Recommendations.Performed By: #### [id number] ####[facility] [address] [place], [place] [address] Abbi Choudhary M.D. [id number] nitrogen/Creatinine [Mass ratio]17.4 mg/vxRjjhoo31.0-20.0[facility] on above:Order Comment: [facility] has implemented the eGFR calculation approach that does not have a coefficient for race that conforms to the NKF-ASN Task Force Recommendations.Performed By: #### [id number] ####[facility] [address] [place], [place] [address] Abbi Choudhary M.D. [id number] function 2000 panel on 33-65-7590Vqelcll [Mass/Vol]3.3 g/dL3.2 - 5.2 g/dLOhioHealthAnion gap [Moles/Vol]11 mmol/L10 - 20 mmol/LOhioHealthCalcium [Mass/Vol]9.1 mg/dL8.4 - 10.2 mg/dLOhioHealthChloride [Moles/Vol]108 mmol/L98 - 108 mmol/LOhioHealth Creatinine [Mass/Vol]1.67 mg/dLHigh0.40 - 1.10 mg/dLOhioHealthGFR/1.73 sq M.predicted CKD-EPI (S/P/Bld) [Vol rate/Area]38Low- PINFOhioHealthGlucose [Mass/Vol]301 mg/iOTjhz90 - 99 mg/dLOhioHealthHCO3 [Moles/Vol]24 mmol/L21 - 32 mmol/LOhioHealthInterpretation and review of laboratory resultsAbnormal OhioHealthPhosphate [Mass/Vol]3 mg/dL2.7 - 4.5 mg/dLOhioHealthPotassium [Moles/Vol]4.1 mmol/L3.5 - 5.1 mmol/LOhioHealthSodium [Moles/Vol]139 mmol/L135 - 145 mmol/LOhioHealthUrea nitrogen [Mass/Vol]29 mg/dLHigh8 - 25 mg/dLOhioHealth Urea nitrogen/Creatinine [Mass ratio]17.4 mg/mg10.0 - 20.0OhioHealthOhioHealth OhioHealthWound Aerobic And Anaerobic CultureOrdered By: Zayda Smith on 68-52-9945Jyhbwtby identified Aer cx Nom (Unsp spec)No Growth after 5 days OhioHealthMicroscopic observation Gram stain Nom (Unsp spec)Few WBCOhioHealth Microscopic observation Gram stain Nom (Unsp spec)Many RBCOhioHealthMicroscopic observation Gram stain Nom (Unsp spec)No Organisms SeenOhioHealthOhioHealthCBCon 18-13-9109XUEU NRBC0.0 %NormalOaklawn Psychiatric CenterComment on above:Performed By: #### [id number] ####[facility] [address] [place], [place] [address] Abbi Choudhary M.D. [id number] NRBC ABS COUNT0.00 K/mcLNormal0.00-0.00[facility] Psychiatric CenterComment on above:Performed By: #### 06655 ####[facility] [address] [place], [place] [address] Abbi Choudhary M.D. [id number] distribution width (RBC) [Ratio]12.7 %Owmkza08.6-14.8O[facility]wn Psychiatric CenterComment on above: Performed By: #### 03274 ####[facility] [address] [place], [place] [address] Abbi Choudhary M.D. [id number] (Bld) [Volume fraction]28.0 %Low36.0-46.0 [facility] CenterComment on above:Performed By: #### [id number] ####[facility] [address] [place] [address] Abbi Choudhary M.D. [id number] (Bld) [Mass/Vol]8.8 g/dLLow12.0-16.0[facility] CenterComment on above: Performed By: #### 77002 ####[facility] [address] [place] [address] Abbi Choudhary M.D. [id number] (RBC) [Entitic mass]30.6 jyChezdk26.0-34.0[facility] CenterComment on above:Performed By: #### 58093 ####[facility] [address] [place] [address] Abbi Choudhary M.D. [id number] (RBC) [Entitic vol]97.2 wCBwssmx85.0-100.0[facility] CenterComment on above: Performed By: #### 56145 ####[facility] [address] [place] [address] Abbi Choudhary M.D. [id number] CORPUSCULAR HEMOGLOBIN CONC31.4 g/dLNormal 31.0-37.0[facility] Psych[facility] CenterComment on above:Performed By: #### [id number] ####[facility] [address] [place] [address] Abbi Choudhary M.D. 36D0 [id number] mean volume (Bld) [Entitic vol]9.5 fLNormal9.4-12.4[facility] CenterComment on above:Performed By: #### 67514 ####[facility] [address] [place] [address] Abbi Choudhary M.D. [id number] (Bld) [#/Vol]264 10*3/xYPnrfav369-725EsqjgwOaklawn Psychiatric CenterComment on above:Performed By: #### [id number] ####[facility] [address] [place], [place] [address] Abbi Choudhary M.D. [id number] (Bld) [#/Vol]2.88 10*6/uLLow4.00-5.20[facility] Comment on above:Performed By: #### 81159 ####[facility] [address] [place], [place] [address] Abbi Choudhary M.D. [id number] (Bld) [#/Vol]7.18 10*3/uLNormal 4.50-11.00[facility] CenterComment on above:Performed By: #### [id number] ####[facility] [address] [place] [address] Abbi Choudhary M.D. 36D0 [id number] panel Auto (Bld)on 48-86-5584Wayhrcixooh distribution width (RBC) [Entitic vol]12.7 %11.6 - [...] 10*3/uLOhioHealthRBC (Bld) [#/Vol] 2.88 10*6/uLLowOhioHealthWBC (Bld) [#/Vol]7.18 10*3/uLOhioHealthOhioOhio Valley Surgical Hospital Glucose (Bld) [Mass/Vol]on 90-09-3902Ccxxwps [Mass/Vol]245 mg/uXGihu81 - 99 mg/dLOhioHealthInterpretation and review of laboratory resultsAbnormThe University of [facility] OhioHealthGlucose [Mass/Vol]172 mg/fCFujb11 - 99 mg/dLOhioHealthInterpretation and review of laboratory resultsAbnormalOAvita Health System Bucyrus HospitalioHealthGlucose [Mass/Vol] 177 mg/vOFval14 - 99 mg/dLOhioHealthInterpretation and review of laboratory resultsAbnormalOhiAKealThe Surgical Hospital at SouthwoodsioHealthGlucose [Mass/Vol]186 mg/eFOqqp59 - 99 mg/dL OhioHealthInterpretation and review of laboratory resultsAbnormOhioHealth Pickerington Methodist Hospitaleal OhioHealthGlucose [Mass/Vol]268 mg/jRTbmu10 - 99 mg/dLOhioHealthInterpretation and review of laboratory resultsAbnoEast Liverpool City Hospital GLUCOSE [facility] 74-97-9273Hgbpztn [Mass/Vol]245 mg/pLWtyg74-45Mckzek [facility] CenterComment on above:Performed By: #### 05496 ####[facility] [address] [place], [place] [address] Abbi Choudhary M.D. [id number] [Mass/Vol]172 mg/cRGtgl63-66Shmykm [facility] CenterComment on above:Performed By: #### 39172 ####[facility] [address] [place], [place] [address] Abbi Choudhary M.D. [id number] [Mass/Vol]177 mg/cXBord28-26PjkxwuDaviess Community HospitalComment on above:Performed By: #### 17704 ####[facility] [address] [place], [place] [address] Abbi Choudhary M.D. [id number] [Mass/Vol]186 mg/uAKiwi36-80IgabpsDaviess Community Hospital Comment on above:Performed By: #### 98425 ####[facility] [address] [place], [place] [address] Abbi Choudhary M.D. [id number] [Mass/Vol]268 mg/wGTfjk21-56 [facility] CenterComment on above:Performed By: #### [id number] #### [facility] [address] [place], [place] Julio Choudhary M.D. [id number] FUNCTION PANELon 88-66-1428Wlivynt [Mass/Vol]3.0 g/dLLow3.2-5.2MDaviess Community HospitalComment on above:Order Comment: [facility] has implemented the eGFR calculation approach that does not have a coefficient for race that conforms to the NKF-ASN Task Force Recommendations.Performed By: #### 75532 #### [facility] [address] [place] [address] Abbi Choudhary M.D. [id number] gap [Moles/Vol]14 mmol/BSquwsb06-67XhzzbmOaklawn Psychiatric Center Comment on above:Order Comment: [facility] has implemented the eGFR calculation approach that does not have a coefficient for race that conforms to the NKF-ASN Task Force Recommendations.Performed By: #### 36850 #### [facility] [address] [place], [place] [address] Abbi Choudhary M.D. 36D0 338795Ypxpbdb [Mass/Vol]8.7 mg/dLNormal8.4-10.2MSt. Mary's [facility] on above:Order Comment: [facility] has implemented the eGFR calculation approach that does not have a coefficient for race that conforms to the NKF-ASN Task Force Recommendations.Performed By: #### [id number] #### [facility] [address] [place], [place] [address] Abbi Choudhary M.D. [id number] [Moles/Vol]108 mmol/QJqaxkd60-512HhljbpOaklawn Psychiatric CenterComment on above:Order Comment: [facility] has implemented the eGFR calculation approach that does not have a coefficient for race that conforms to the NKF-ASN Task Force Recommendations.Performed By: #### 95113 ####[facility] [address] [place], [place] [address] Abbi Choudhary M.D. [id number] [Mass/Vol]2.19 mg/dLHigh0.40-1.10[facility]skenazi Hospitalment on above:Order Comment: [facility] has implemented the eGFR calculation approach that does not have a coefficient for race that conforms to the NKF-ASN Task Force Recommendations.Performed By: #### 59696 ####[facility] [address] [place] [address] Abbi Choudhary M.D. [id number] mL/min/1.73 m2Low>=60 [facility] on above:Order Comment: [facility] has implemented the eGFR calculation approach that does not have a coefficient for race that conforms to the NKF-ASN Task Force Recommendations. Result Comment: Estimated GFR was calculated using the 2020 CKD-EPI creatinine equation.Performed By: #### [id number] ####[facility] [address] [place] [address] Abbi Choudhary M.D. [id number] [Mass/Vol]288 mg/oSQvgy61-68JpifmtSt. Mary's [facility]rick Hospital on above:Order Comment: [facility] has implemented the eGFR calculation approach that does not have a coefficient for race that conforms to the NKF-ASN Task Force Recommendations.Performed By: #### 27765 ####[facility] [address] [place] [address] Abbi Choudhary M.D. [id number] (Bld) [Moles/Vol]20 mmol/RGrl28-07RezbvkOaklawn Psychiatric Center Comment on above:Order Comment: [facility] has implemented the eGFR calculation approach that does not have a coefficient for race that conforms to the NKF-ASN Task Force Recommendations.Performed By: #### 62043 ####[facility] [address] [place] [address] Abbi Choudhary M.D. 36D0 801553Utofvkbwo [Mass/Vol]4.1 mg/dLNormal2.7-4.5[facility] on above:Order Comment: [facility] has implemented the eGFR calculation approach that does not have a coefficient for race that conforms to the NKF-ASN Task Force Recommendations.Performed By: #### [id number] ####[facility] [address] [address] Abbi Choudhary M.D. [id number] [Moles/Vol]4.8 mmol/LNormal3.5-5.1MSt. [facility] on above:Order Comment: [facility] has implemented the eGFR calculation approach that does not have a coefficient for race that conforms to the NKF-ASN Task Force Recommendations.Performed By: #### [id number] ####[facility] [address] [address] Abbi Choudhary M.D. [id number] [Moles/Vol]137 mmol/RMpihxz024-406XegudtParkview Noble Hospital on above:Order Comment: [facility] has implemented the eGFR calculation approach that does not have a coefficient for race that conforms to the NKF-ASN Task Force Recommendations.Performed By: #### [id number] ####[facility] [address] [address] Abbi Choudhary M.D. [id number] nitrogen [Mass/Vol]36 mg/dLHigh8-25[facility] on above:Order Comment: [facility] has implemented the eGFR calculation approach that does not have a coefficient for race that conforms to the NKF-ASN Task Force Recommendations.Performed By: #### [id number] ####[facility] [address] [address] Abbi Choudhary M.D. [id number] nitrogen/Creatinine [Mass ratio]16.4 mg/htHdxled78.0-20.0[facility] on above:Order Comment: [facility] has implemented the eGFR calculation approach that does not have a coefficient for race that conforms to the NKF-ASN Task Force Recommendations.Performed By: #### [id number] ####[facility] [address] [address] Abbi Choudhary M.D. [id number] function 2000 panel on 02-23-1548Fylwgas [Mass/Vol]3 g/dLLow3.2 - 5.2 g/dLOhioHealthAnion gap [Moles/Vol]14 mmol/L10 - 20 mmol/LOhioHealthCalcium [Mass/Vol]8.7 mg/dL8.4 - 10.2 mg/dLOhioHealthChloride [Moles/Vol]108 mmol/L98 - 108 mmol/LOhioHealth Creatinine [Mass/Vol]2.19 mg/dLHigh0.40 - 1.10 mg/dLOhioHealthGFR/1.73 sq M.predicted CKD-EPI (S/P/Bld) [Vol rate/Area]28Low- PINFOhioHealthGlucose [Mass/Vol]288 mg/wEGgsz76 - 99 mg/dLOhioHealthHCO3 [Moles/Vol]20 mmol/LLow21 - 32 mmol/LOhioHealthInterpretation and review of laboratory resultsAbnormal OhioHealthPhosphate [Mass/Vol]4.1 mg/dL2.7 - 4.5 mg/dLOhioHealthPotassium [Moles/Vol]4.8 mmol/L3.5 - 5.1 mmol/LOhioHealthSodium [Moles/Vol]137 mmol/L135 - 145 mmol/LOhioHealthUrea nitrogen [Mass/Vol]36 mg/dLHigh8 - 25 mg/dLOhioHealth Urea nitrogen/Creatinine [Mass ratio]16.4 mg/mg10.0 - 20.0OhioHealthOhioHealth [facility] [phone] NRBC0.0 %NormalOaklawn Psychiatric CenterComment on above:Performed By: #### [id number] ####[facility] [address] [address] Abbi Choudhary M.D. [id number] NRBC ABS COUNT0.00 K/mcLNormal0.00-0.00 [facility] CenterComment on above:Performed By: #### [id number] ####[facility] [address] [place], [place] [address] Abbi Choudhary M.D. [id number] distribution width (RBC) [Ratio]13.1 %Wywshl36.6-14.8[facility] Comment on above:Performed By: #### [id number] #### LAB [address] [place], [place] [address] Abbi Choudhary M.D. [id number] (Bld) [Volume fraction] 29.5 %Low36.0-46.0[facility]iatric CenterComment on above:Performed By: #### [id number] ####[facility] [address] [address] Abbi Choudhary M.D. [id number] (Bld) [Mass/Vol]9.2 g/dLLow12.0-16.0[facility] Comment on above:Performed By: #### [id number] ####[facility] [address] [address] Abbi Choudhary M.D. [id number] (RBC) [Entitic mass]30.8 pg Tapcnm36.0-34.0[facility] Psychiatric CenterComment on above:Performed By: #### [id number] ####[facility] [address] [address] Abbi Choudhary M.D. 36D0 [id number] (RBC) [Entitic vol]98.7 sBIyrzrp66.0-100.0[facility] Comment on above:Performed By: #### [id number] ####[facility] [address] [address] Abbi Choudhary M.D. [id number] CORPUSCULAR HEMOGLOBIN CONC31.2 g/tXMuuixy17.0-37.0[facility] CenterComment on above:Performed By: #### [id number] ####[facility] [address] [address] Abbi Choudhary M.D. [id number] mean volume (Bld) [Entitic vol]9.4 fLNormal9.4-12.4[facility] CenterComment on above:Performed By: #### [id number] ####[facility] [address] [address] Abbi Choudhary M.D. [id number] (Bld) [#/Vol]282 10*3/tYVewpsr819-047BwfiskOaklawn Psychiatric CenterComment on above:Performed By: #### [id number] ####[facility] [address] [place], [place] [address] Abbi Choudhary M.D. [id number] (Bld) [#/Vol]2.99 10*6/uLLow4.00-5.20[facility] CenterComment on above:Performed By: #### [id number] ####[facility] [address] [address] Abbi Choudhary M.D. [id number] (Bld) [#/Vol]7.07 10*3/uL Normal4.50-11.00[facility] CenterComment on above:Performed By: #### [id number] ####[facility] [address] [address] Abbi Choudhary M.D. 36D0 029205SID panel Auto (Bld)on 06-49-5233Egnawypzsrg distribution width (RBC) [Entitic vol]13.1 %11.6 - [...] 10*6/uLLowOhioHealthWBC (Bld) [#/Vol]7.07 10*3/uLOhioHealthOhioHealth Glucose (Bld) [Mass/Vol]on 21-41-9811Crizehm [Mass/Vol]170 mg/fRPpwo51 - 99 mg/dLOhioHealthInterpretation and review of laboratory resultsAbnormalODayton Children's Hospitaleal OhioHealthGlucose [Mass/Vol]226 mg/vUJlbm87 - 99 mg/dLOhioHealthInterpretation and review of laboratory resultsAbnormalOhioHealthOhioHealthGlucose [Mass/Vol] 248 mg/sEIeqk66 - 99 mg/dLOhioHealthInterpretation and review of laboratory resultsAbnormalOhioHealthOhioHealthGlucose [Mass/Vol]275 mg/xJWwjd24 - 99 mg/dL OhioHealthInterpretation and review of laboratory resultsAbnormalOhiAKeal OhioHealthGlucose [Mass/Vol]274 mg/yGYjiy03 - 99 mg/dLOhioHealthInterpretation and review of laboratory resultsAbnormMercy Health St. [facility] HospitalioOhio [facility] GLUCOSE [facility] 42-09-5018Lygzoud [Mass/Vol]170 mg/jINvfr97-93Cdawxm [facility] CenterComment on above:Performed By: #### [id number] ####[facility] [address] [place], [place] [address] Abbi Choudhary M.D. [id number] [Mass/Vol]226 mg/fNBvyn00-73Dpuqoq [facility] CenterComment on above:Performed By: #### [id number] ####[facility] [address] [place], [place] [address] Abbi Choudhary M.D. [id number] [Mass/Vol]248 mg/oCVlrm56-08Cczzmc [facility] HospitalComment on above:Performed By: #### [id number] ####[facility] [address] [place], [place] [address] Abbi Choudhary M.D. [id number] [Mass/Vol]274 mg/cBNvvk97-58QrezxfDaviess Community Hospital Comment on above:Performed By: #### 75125 ####[facility] [address] [address]Alisia Choudhary M.D. [id number] FUNCTION PANELon 03-28-2024 Albumin [Mass/Vol]3.3 g/dLNormal3.2-5.2MDaviess Community HospitalComsheridan community hospital on above: Order Comment: [facility] has implemented the eGFR calculation approach that does not have a coefficient for race that conforms to the NKF-ASN Task Force Recommendations.Performed By: #### [id number] ####[facility] [address] [address] Abbi Choudhary M.D. [id number] gap [Moles/Vol]15 mmol/SEsiwjn25-60LgedtbParkview Noble Hospital on above:Order Comment: [facility] has implemented the eGFR calculation approach that does not have a coefficient for race that conforms to the NKF-ASN Task Force Recommendations.Performed By: #### [id number] ####[facility] [address] [address] Abbi Choudhary M.D. [id number] [Mass/Vol]8.5 mg/dLNormal8.4-10.2MSt. [facility]'s [facility] on above:Order Comment: [facility] has implemented the eGFR calculation approach that does not have a coefficient for race that conforms to the NKF-ASN Task Force Recommendations.Performed By: #### [id number] ####[facility] [address] [address] Abbi Choudhary M.D. [id number] [Moles/Vol]107 mmol/L Lpdhex27-270TxhijoOaklawn Psychiatric CenterComsheridan community hospital on above:Order Comment: [facility] has implemented the eGFR calculation approach that does not have a coefficient for race that conforms to the NKF-ASN Task Force Recommendations.Performed By: #### [id number] ####[facility] [address] [address] Abbi Choudhary M.D. [id number] [Mass/Vol]2.47 mg/dLHigh 0.40-1.10[facility] on above:Order Comment: [facility] has implemented the eGFR calculation approach that does not have a coefficient for race that conforms to the NKF-ASN Task Force Recommendations.Performed By: #### [id number] ####[facility] [address] [address] Abbi Choudhary M.D. [id number] mL/min/1.73 m2Low>=60[facility] on above:Order Comment: [facility] has implemented the eGFR calculation approach that does not have a coefficient for race that conforms to the NKF-ASN Task Force Recommendations.Result Comment: Estimated GFR was calculated using the 2020 CKD-EPI creatinine equation. Performed By: #### [id number] ####[facility] [address] [place] [address] Abbi Choudhary M.D. [id number] [Mass/Vol]281 mg/eTZnuv10-79CujpvxSt. Mary's [facility] Hospital on above:Order Comment: [facility] has implemented the eGFR calculation approach that does not have a coefficient for race that conforms to the NKF-ASN Task Force Recommendations.Performed By: #### [id number] ####[facility] [address] [address] Abbi Choudhary M.D. [id number] (Bld) [Moles/Vol]20 mmol/UQcp43-33PujngsParkview Noble Hospital on above:Order Comment: [facility] has implemented the eGFR calculation approach that does not have a coefficient for race that conforms to the NKF-ASN Task Force Recommendations.Performed By: #### [id number] ####[facility] [address] [address] Abbi Choudhary M.D. [id number] [Mass/Vol]4.8 mg/dLWetzel County Hospital2.7-4.5[facility] on above:Order Comment: [facility] has implemented the eGFR calculation approach that does not have a coefficient for race that conforms to the NKF-ASN Task Force Recommendations.Performed By: #### [id number] ####[facility] [address] [address] Abbi Choudhary M.D. [id number] [Moles/Vol]5.3 mmol/LHigh3.5-5.1MSt. Mary's [facility] on above:Order Comment: [facility] has implemented the eGFR calculation approach that does not have a coefficient for race that conforms to the NKF-ASN Task Force Recommendations.Performed By: #### [id number] ####[facility] [address] [place], [place] [address] Abbi Choudhary M.D. [id number] [Moles/Vol]137 mmol/L Bcytlp307-603JlddotParkview Noble Hospital on above:Order Comment: [facility] has implemented the eGFR calculation approach that does not have a coefficient for race that conforms to the NKF-ASN Task Force Recommendations.Performed By: #### 07832 ####[facility] [address] [address] Abbi Choudhary M.D. [id number] nitrogen [Mass/Vol]34 mg/dLHigh 8-25[facility] on above:Order Comment: [facility] has implemented the eGFR calculation approach that does not have a coefficient for race that conforms to the NKF-ASN Task Force Recommendations. Performed By: #### [id number] ####[facility] [address] [place] [address] Abbi Choudhary M.D. [id number] nitrogen/Creatinine [Mass ratio]13.8 mg/mgNormal 10.0-20.0[facility] on above:Order Comment: [facility] has implemented the eGFR calculation approach that does not have a coefficient for race that conforms to the NKF-ASN Task Force Recommendations.Performed By: #### [id number] ####[facility] [address] [place], [place] [address] Abbi Choudhary M.D. [id number] function 2000 panel 18-11-7515Xkbkyhx [Mass/Vol]3.3 g/dL3.2 - 5.2 g/dLOhioHealthAnion gap [Moles/Vol]15 mmol/L10 - 20 mmol/LOhioHealthCalcium [Mass/Vol]8.5 mg/dL8.4 - 10.2 mg/dLOhioHealthChloride [Moles/Vol]107 mmol/L98 - 108 mmol/LOhioHealth Creatinine [Mass/Vol]2.47 mg/dLHigh0.40 - 1.10 mg/dLOhioHealthGFR/1.73 sq M.predicted CKD-EPI (S/P/Bld) [Vol rate/Area]24Low- PINFOhioHealthGlucose [Mass/Vol]281 mg/jDDbgw02 - 99 mg/dLOhioHealthHCO3 [Moles/Vol]20 mmol/LLow21 - 32 mmol/LOhioHealthInterpretation and review of laboratory resultsAbnormal OhioHealthPhosphate [Mass/Vol]4.8 mg/dLHigh2.7 - 4.5 mg/dLOhioHealthPotassium [Moles/Vol]5.3 mmol/LHigh3.5 - 5.1 mmol/LOhioHealthSodium [Moles/Vol]137 mmol/L 135 - 145 mmol/LOhioHealthUrea nitrogen [Mass/Vol]34 mg/dLHigh8 - 25 mg/dL OhioHealthUrea nitrogen/Creatinine [Mass ratio]13.8 mg/mg10.0 - 20.0[facility]Health OhioHealthOhioHealthUS Kidney - bilateral and Urinary bladderon 29-47-3050UC RIS GE RISOhioHealthUS Kidney - bilateral and Urinary bladderOrdered By: Kj Chiu on 93-22-1369YgdyUntfgo Work Phone: Bacteria identified Aer cx Nom (Unsp spec)Ordered By: Keyla Guerrero on 00-16-7805Kcdhprjmmvfvbp and review of laboratory results AbnormalOhioHealthNvioHealthCBCon 25-33-9599WIRG NRBC0.0 %NormalOaklawn Psychiatric CenterComment on above:Performed By: #### [id number] #### LAB [address] [place], [place] [address] Abbi Choudhary M.D. [id number] NRBC ABS COUNT0.00 K/mcL Normal0.00-0.00[facility] Psychiatric CenterComment on above:Performed By: #### [id number] ####[facility] [address] [place], [place] [address] Abbi Choudhary M.D. 36D0 [id number] distribution width (RBC) [Ratio]13.2 %Saviaz58.6-14.8[facility]iatric CenterComment on above:Performed By: #### [id number] ####[facility] [address] [place] [address] Abbi Choudhary M.D. [id number] (Bld) [Volume fraction]30.8 %Low36.0-46.0[facility]iatric CenterComment on above: Performed By: #### [id number] ####[facility] [address] [place] [address] Abbi Choudhary M.D. [id number] (Bld) [Mass/Vol]9.6 g/dLLow12.0-16.0[facility] CenterComment on above:Performed By: #### 69748 ####[facility] [address] [place] [address] Abbi Choudhary M.D. [id number] (RBC) [Entitic mass]30.6 evBnvkst36.0-34.0[facility] CenterComment on above: Performed By: #### [id number] ####[facility] [address] [place] [address] Abbi Choudhary M.D. [id number] (RBC) [Entitic vol]98.1 zVPcizzi05.0-100.0[facility] CenterComment on above:Performed By: #### 03587 ####[facility] [address] [place] [address] Abbi Choudhary M.D. [id number] CORPUSCULAR HEMOGLOBIN CONC31.2 g/wJAenmrp50.0-37.0[facility] CenterComment on above: Performed By: #### [id number] ####[facility] [address] [place] [address] Abbi Choudhary M.D. [id number] mean volume (Bld) [Entitic vol]9.4 fLNormal 9.4-12.4[facility] CenterComment on above:Performed By: #### 64703 ####[facility] [address] [place], [place] [address] Abbi Choudhary M.D. [id number] Platelets (Bld) [#/Vol]308 10*3/fNGyedyv492-238RbcujkOaklawn Psychiatric CenterComment on above:Performed By: #### [id number] ####[facility] [address] [place] [address] Abbi Choudhary M.D. [id number] (Bld) [#/Vol]3.14 10*6/uLLow4.00-5.20 [facility] CenterComsheridan community hospital on above:Performed By: #### 11307 ####[facility] [address] [place] [address] Abbi Choudhary M.D. [id number] (Bld) [#/Vol]7.80 10*3/uLNormal4.50-11.00[facility] CenterComsheridan community hospital on above: Performed By: #### [id number] ####[facility] [address] [place] [address] Abbi Choudhary M.D. [id number] panel Auto (Bld)on 87-70-2850Ttnxplvktmn distribution width (RBC) [Entitic vol]13.2 %11.6 - [...] activity/Vol]on 03-27-2024 Interpretation and review of laboratory resultsNormalOLake County Memorial Hospital [facility] COMPREHENSIVE METABOLIC PANELon 34-74-9544Lmfmtam [Mass/Vol]3.1 g/dLLow3.2-5.2 [facility] CenterComment on above:Order Comment: [facility] has implemented the eGFR calculation approach that does not have a coefficient for race that conforms to the NKF-ASN Task Force Recommendations. Performed By: #### [id number] ####[facility] [address] [place] [address] Abbi Choudhary M.D. [id number] [Catalytic activity/Vol]91 U/GUtcslc05-270UhgusrOaklawn Psychiatric CenterComment on above:Order Comment: [facility] has implemented the eGFR calculation approach that does not have a coefficient for race that conforms to the NKF-ASN Task Force Recommendations.Performed By: #### 45170 #### LAB [address] [place] [address] Abbi Choudhary M.D. [id number] [Catalytic activity/Vol]11 U/LNormal0-35 U/LMDaviess Community HospitalComment on above:Order Comment: [facility] has implemented the eGFR calculation approach that does not have a coefficient for race that conforms to the NKF-ASN Task Force Recommendations.Performed By: #### [id number] ####[facility] [address] [place], [place] [address] Abbi Choudhary M.D. [id number] gap [Moles/Vol]14 mmol/NDteedq54-54RlboymOaklawn Psychiatric Center Comment on above:Order Comment: [facility] has implemented the eGFR calculation approach that does not have a coefficient for race that conforms to the NKF-ASN Task Force Recommendations.Performed By: #### [id number] ####[facility] [address] [place] [address] Abbi Choudhary M.D. 36D0 [id number] [Catalytic activity/Vol]11 U/LNormal0-35 U/LMDaviess Community Hospital Comment on above:Order Comment: [facility] has implemented the eGFR calculation approach that does not have a coefficient for race that conforms to the NKF-ASN Task Force Recommendations.Performed By: #### 81914 ####[facility] [address] [place] [address] Abbi Choudhary M.D. 36D0 411947Rgajyldau [Mass/Vol]0.3 mg/dLNormal0.0-1.3MDaviess Community HospitalComment on above:Order Comment: [facility] has implemented the eGFR calculation approach that does not have a coefficient for race that conforms to the NKF-ASN Task Force Recommendations.Performed By: #### 09094 ####[facility] [address] [place] [address] Abbi Choudhary M.D. [id number] [Mass/Vol]8.2 mg/dLLow8.4-10.2MDaviess Community HospitalComment on above:Order Comment: [facility] has implemented the eGFR calculation approach that does not have a coefficient for race that conforms to the NKF-ASN Task Force Recommendations.Performed By: #### [id number] ####[facility] [address] [place] [address] Abbi Choudhary M.D. [id number] [Moles/Vol]110 mmol/HJkah81-181KycuwuOaklawn Psychiatric CenterComment on above:Order Comment: [facility] has implemented the eGFR calculation approach that does not have a coefficient for race that conforms to the NKF-ASN Task Force Recommendations.Performed By: #### 79753 ####[facility] [address] [place] [address] Abbi Choudhary M.D. [id number] [Mass/Vol]2.53 mg/dLHigh0.40-1.10[facility] Psychiatric CenterComment on above:Order Comment: [facility] has implemented the eGFR calculation approach that does not have a coefficient for race that conforms to the NKF-ASN Task Force Recommendations.Performed By: #### [id number] ####[facility] [address] [place] [address] Abbi Choudhary M.D. [id number] mL/min/1.73 m2Low>=60 [facility]iatric CenterComment on above:Order Comment: [facility] has implemented the eGFR calculation approach that does not have a coefficient for race that conforms to the NKF-ASN Task Force Recommendations. Result Comment: Estimated GFR was calculated using the 2020 CKD-EPI creatinine equation.Performed By: #### 73480 #### LAB [address] [place] [address] Abbi Choudhary M.D. [id number] [Mass/Vol]161 mg/uXQjxc65-10Glvnq[address] [place], [place] [address]Comsher[facility] on above:Order Comment: [facility] has implemented the eGFR calculation approach that does not have a coefficient for race that conforms to the NKF-ASN Task Force Recommendations.Performed By: #### [id number] ####[facility] [address] [place] [address] Abbi Choudhary M.D. [id number] (Bld) [Moles/Vol]21 mmol/UGrmwar51-06WraalnOaklawn Psychiatric Center Comment on above:Order Comment: [facility] has implemented the eGFR calculation approach that does not have a coefficient for race that conforms to the NKF-ASN Task Force Recommendations.Performed By: #### 65947 ####[facility] [address] [place] [address] Abbi Choudhary M.D. 36D0 [id number] [Moles/Vol]4.8 mmol/LNormal3.5-5.1MSt. [facility]'s [facility] on above:Order Comment: [facility] has implemented the eGFR calculation approach that does not have a coefficient for race that conforms to the NKF-ASN Task Force Recommendations.Performed By: #### [id number] ####[facility] [address] [place] [address] Abbi Choudhary M.D. [id number] [Mass/Vol]5.9 g/dLLow6.0-8.0[facility] on above:Order Comment: [facility] has implemented the eGFR calculation approach that does not have a coefficient for race that conforms to the NKF-ASN Task Force Recommendations.Performed By: #### [id number] ####[facility] [address] [place] [address] Abbi Choudhary M.D. [id number] [Moles/Vol]140 mmol/DNsmjun807-035MgwytpParkview Noble Hospital on above:Order Comment: [facility] has implemented the eGFR calculation approach that does not have a coefficient for race that conforms to the NKF-ASN Task Force Recommendations.Performed By: #### [id number] #### LAB [address] [place] [address] Abbi Choudhary M.D. [id number] nitrogen [Mass/Vol]32 mg/dLHigh8-25[facility] on above:Order Comment: [facility] has implemented the eGFR calculation approach that does not have a coefficient for race that conforms to the NKF-ASN Task Force Recommendations.Performed By: #### [id number] #### LAB [address] [place] [address] Abbi Choudhary M.D. [id number] nitrogen/Creatinine [Mass ratio]12.6 mg/mfPjdtfi68.0-20.0[facility] on above:Order Comment: [facility] [facility] has implemented the eGFR calculation approach that does not have a coefficient for race that conforms to the NKF-ASN Task Force Recommendations.Performed By: #### [id number] ####[facility] [address] [address] Abbi Choudhary M.D. [id number] 03-27-2024 CONSULTNoDeaconess HospitalCONSULTNoDeaconess HospitalCPKon 46-09-0006ONY58 U/ZRacyqp07-466HkfatvParkview Noble Hospital on above:Performed By: #### 96536 ####[facility] [address] [address] Abbi Choudhary M.D. [id number] NO MBon 23-09-1950JQ [Catalytic activity/Vol]56 U/L40 - 170 U/LOhioHealthComprehensive metabolic 2000 panelon 01-97-3767Hynrdjn [Mass/Vol] 3.1 g/dLLow3.2 - 5.2 g/dLOhioHealthALP [Catalytic activity/Vol]91 U/L40 - 150 U/LOhioHealthALT [Catalytic activity/Vol]11 U/L0-35 U/LOhioHealthAnion gap [Moles/Vol]14 mmol/L10 - 20 mmol/LOhioHealthAST [Catalytic activity/Vol]11 U/L0- 35 U/LOhioHealthBilirubin [Mass/Vol]0.3 mg/dL0.0 - 1.3 mg/dLOhioHealthCalcium [Mass/Vol]8.2 mg/dLLow8.4 - 10.2 mg/dLOhioHealthChloride [Moles/Vol]110 mmol/L High98 - 108 mmol/LOhioHealthCreatinine [Mass/Vol]2.53 mg/dLHigh0.40 - 1.10 mg/dLOhioHealthGFR/1.73 sq M.predicted CKD-EPI (S/P/Bld) [Vol rate/Area]23Low- PINFOhioHealthGlucose [Mass/Vol]161 mg/sOKcys67 - 99 mg/dLOhioHealthHCO3 [Moles/Vol]21 mmol/L21 - 32 mmol/LOhioHealthInterpretation and review of laboratory resultsAbnormalOhioHealthPotassium [Moles/Vol]4.8 mmol/L3.5 - 5.1 mmol/LOhioHealthProtein [Mass/Vol]5.9 g/dLLow6.0 - 8.0 g/dLOhioHealthSodium [Moles/Vol]140 mmol/L135 - 145 mmol/LOhioHealthUrea nitrogen [Mass/Vol]32 mg/dL High8 - 25 mg/dLOhioHealthUrea nitrogen/Creatinine [Mass ratio]12.6 mg/mg10.0 - 20.0OhioHealthOhioHealthOhioHealthGlucose (Bld) [Mass/Vol]on 14-50-4642Nuifwxt [Mass/Vol]131 mg/dCJpfp23 - 99 mg/dLOhioHealthInterpretation and review of laboratory resultsAbnormalOhiAKealthOhioHealthGlucose [Mass/Vol]177 mg/bFJpot42 - 99 mg/dLOhioHealthInterpretation and review of laboratory resultsAbnormal OhioHealthOhioHealthGlucose [Mass/Vol]223 mg/fUAlyr90 - 99 mg/dLOhioHealth Interpretation and review of laboratory resultsAbnormalOhiAKealthOhioHealth Glucose [Mass/Vol]267 mg/oPJjxj56 - 99 mg/dLOhioHealthInterpretation and review of laboratory resultsAbnormalOhiAKealthOhioHealthGlucose [Mass/Vol]135 mg/dLHigh 65 - 99 mg/dLOhioHealthInterpretation and review of laboratory resultsAbnormal OhioHealthOhioHealthGlucose [Mass/Vol]275 mg/bYEipt26 - 99 mg/dLOhioHealth Interpretation and review of laboratory resultsAbnormalODayton Children's HospitalealThe Surgical Hospital at SouthwoodsioOhio Valley Surgical Hospital GLUCOSE [facility] 14-92-3736Gqsljso [Mass/Vol]131 mg/qNInrw61-92Vnhvyx General HospitalComment on above:Performed By: #### 61605 ####[facility] [address] [address] Abbi Choudhary M.D. [id number] [Mass/Vol]177 mg/dL Aaod20-84Buncnt General HospitalComment on above:Performed By: #### [id number] ####[facility] [address] [place], [place] [address] Abbi Choudhary M.D. [id number] [Mass/Vol]223 mg/uSEyhm33-07Lmoszf General HospitalComment on above:Performed By: #### 73169 ####[facility] [address] [place], [place] [address] Abbi Choudhary M.D. [id number] [Mass/Vol]267 mg/lFYyxy38-30Wiemms General HospitalComment on above:Performed By: #### 58187 ####[facility] [address] [address] Abbi Choudhary M.D. [id number] [Mass/Vol]135 mg/lRTjem94-92JkqrpcDaviess Community HospitalComment on above:Performed By: #### 63959 ####[facility] [address] [place], [place] [address] Abbi Choudhary M.D. [id number] [Mass/Vol]275 mg/vDAuzr10-51Yuqt[address] Comment on above:Performed By: #### 41212 ####[facility] [address] [address] Abbi Choudhary M.D. [id number] Kidney - bilateral and Urinary bladderon 64-15-0159Wujszhzpq Study observation (narrative)[facility] RENAL AND BLADDERon 07-96-6390TW RENAL AND BLADDERNoDeaconess HospitalComment on above:Order Comment: Injury/Trauma or Illness?:Illness/OtherHow long have you had these symptoms (acute/chronic)?:UnknownReason for exam?:Renal failureHistory of cancer?:uSurgeries, chemotherapy, or radiation?:pacemakerType of Exam?:UnknownAdditional signs and symptoms?:noUrine Aerobic CultureOrdered By: Keyla Guerrero on 10-84-1115Rlajazgr identified Aer cx Nom (Unsp spec) 50,000-100,000 CFU/mL Escherichia coliAbnormalOhioHealthXR CHEST LATERAL LEFTon 83-65-3517RQ CHEST LATERAL LEFTPulaski Memorial HospitalComment on above: Order Comment: Injury/Trauma or Illness?:Illness/OtherHow long have you had these symptoms (acute/chronic)?:AcuteReason for exam?:Eval depth of port access needleHistory of cancer?:uSurgeries, chemotherapy, or radiation?:pacemakerType of Exam?:OngoingAdditional signs and symptoms?:unable to get blood returnXR CHEST PA/APon 77-81-0351WU CHEST PA/APCameron Memorial Community Hospital HospitalComment on above:Order Comment: Injury/Trauma or Illness?:Illness/OtherHow long have you had these symptoms (acute/chronic)?:AcuteReason for exam?:port varifictionHistory of cancer?:uSurgeries, chemotherapy, or radiat ion?:pacemakerType of Exam?:UnknownAdditional signs and symptoms?:noXR Chest AP left lateral-decubituson 61-21-5853NY NEA Medical CenterRadiology Study observation (narrative)OhioOhio Valley Surgical HospitalXR Chest PA and Abdomen APon 32-09-8098YB [facility] CenterRadiology Study observation (narrative)[facility] Chest PA and Abdomen APOrdered By: Jermaine Peralta on 04-60-3832RkqoKyrxff Work Phone: BASIC METABOLIC PANELon 96-31-9271Snlud gap [Moles/Vol]16 mmol/YGoveas15-82XyiacgParkview Noble Hospital on above:Order Comment: [facility] has implemented the eGFR calculation approach that does not have a coefficient for race that conforms to the NKF-ASN Task Force Recommendations.Performed By: #### [id number] ####[facility] [address] [place], [place] [address] Abbi Choudhary M.D. [id number] [Mass/Vol]8.3 mg/dLLow8.4-10.2MSt. Mary's [facility] on above:Order Comment: [facility] has implemented the eGFR calculation approach that does not have a coefficient for race that conforms to the NKF-ASN Task Force Recommendations.Performed By: #### 04362 ####[facility] [address] [place], [place] [address] Abbi Choudhary M.D. [id number] [Moles/Vol]106 mmol/L Wfstst99-502ZgetviParkview Noble Hospital on above:Order Comment: [facility] has implemented the eGFR calculation approach that does not have a coefficient for race that conforms to the NKF-ASN Task Force Recommendations.Performed By: #### 13855 ####[facility] [address] [place], [place] [address] Abbi Choudhary M.D. [id number] [Mass/Vol]2.52 mg/dLHigh 0.40-1.10[facility] on above:Order Comment: [facility] has implemented the eGFR calculation approach that does not have a coefficient for race that conforms to the NKF-ASN Task Force Recommendations.Performed By: #### 81853 ####[facility] [address] [address] Abbi Choudhary M.D. [id number] mL/min/1.73 m2Low>=60[facility] on above:Order Comment: [facility] has implemented the eGFR calculation approach that does not have a coefficient for race that conforms to the NKF-ASN Task Force Recommendations.Result Comment: Estimated GFR was calculated using the 2020 CKD-EPI creatinine equation. Performed By: #### 68764 ####[facility] [address] [address] Abbi Choudhary M.D. [id number] [Mass/Vol]333 mg/wCEfcq76-96DrexycSt. Mary's [facility]rick Hospital on above:Order Comment: [facility] has implemented the eGFR calculation approach that does not have a coefficient for race that conforms to the NKF-ASN Task Force Recommendations.Performed By: #### 66714 ####[facility] [address] [address] Abbi Choudhary M.D. [id number] (Bld) [Moles/Vol]20 mmol/SCmk56-42XclufmParkview Noble Hospital on above:Order Comment: [facility] has implemented the eGFR calculation approach that does not have a coefficient for race that conforms to the NKF-ASN Task Force Recommendations.Performed By: #### 42622 ####[facility] [address] [address] Abbi Choudhary M.D. [id number] [Moles/Vol]4.8 mmol/LNormal3.5-5.1MSt. Mary's [facility]rick Hospital on above:Order Comment: [facility] has implemented the eGFR calculation approach that does not have a coefficient for race that conforms to the NKF-ASN Task Force Recommendations.Performed By: #### 62367 ####[facility] [address] [address] Abbi Choudhary M.D. [id number] [Moles/Vol]137 mmol/TCbvznd715-175HoeabeParkview Noble Hospital on above:Order Comment: [facility] has implemented the eGFR calculation approach that does not have a coefficient for race that conforms to the NKF-ASN Task Force Recommendations.Performed By: #### 17948 #### LAB [address] [place], [place] [address] Abbi Choudhary M.D. [id number] nitrogen [Mass/Vol]30 mg/dLHigh8-25Oaklawn Psychiatric CenterComsheridan community hospital on above:Order Comment: [facility] has implemented the eGFR calculation approach that does not have a coefficient for race that conforms to the NKF-ASN Task Force Recommendations.Performed By: #### 58165 ####[facility] [address] [address] Abbi Choudhary M.D. [id number] nitrogen/Creatinine [Mass ratio]11.9 mg/knWxwvgb88.0-20.0Oaklawn Psychiatric CenterComsheridan community hospital on above:Order Comment: [facility] has implemented the eGFR calculation approach that does not have a coefficient for race that conforms to the NKF-ASN Task Force Recommendations.Performed By: #### 60047 ####[facility] [address] [place], [place] [address] Abbi Choudhary M.D. [id number]-BGPEOUJHCZAKKRLix 04-65-0844HLSF-HYDROXYBUTYRATE<Normal0.0-0.3MSt. Mary's [facility] on above:Performed By: #### 61728 ####[facility] [address] [place], [place] [address] Abbi Choudhary M.D. [id number] metabolic 2000 panelOrdered By: Wai Villatoro on 66-61-8088Znmcw gap [Moles/Vol]16 mmol/L10 - 20 mmol/LOhioHealthCalcium [Mass/Vol]8.3 mg/dLLow8.4 - 10.2 mg/dLOhioHealthChloride [Moles/Vol]106 mmol/L98 - 108 mmol/LOhioHealthCreatinine [Mass/Vol]2.52 mg/dLHigh0.40 - 1.10 mg/dL OhioHealthGFR/1.73 sq M.predicted CKD-EPI (S/P/Bld) [Vol rate/Area]23Low- PINF OhioHealthGlucose [Mass/Vol]333 mg/tCGuxo52 - 99 mg/dLOhioHealthHCO3 [Moles/Vol] 20 mmol/LLow21 - 32 mmol/LOhioHealthInterpretation and review of laboratory resultsAbnormalOhioHealthPotassium [Moles/Vol]4.8 mmol/L3.5 - 5.1 mmol/L OhioHealthSodium [Moles/Vol]137 mmol/L135 - 145 mmol/LOhioHealthUrea nitrogen [Mass/Vol]30 mg/dLHigh8 - 25 mg/dLOhioHealthUrea nitrogen/Creatinine [Mass ratio]11.9 mg/mg10.0 - 20.0OhioHealthOhioHealthOhioHealthBeta hydroxybutyrate [Moles/Vol]on 39-60-2993Yjuvvvzsfrswkb and review of laboratory resultsNormal OhioHealthOhioHealthBeta-Hydroxybutyrateon 76-40-5410Tzbr hydroxybutyrate [Moles/Vol]mmol/L0.0 - 0.3 mmol/LOhioHealthCBC (INCLUDES DIFF/PLT)on 03-26-2024 Basophils (Bld) [#/Vol]0.073 10*3/uLNormal0-200Quest DiagnosticsComment on above:Performed By: #### 61996, 78427, 866, 899, 496, 6399, 41026 #### [facility] [address], [address] [place] [address] [employer]: Dean Maddox MDBasophils/100 WBC (Bld)0.7 %NormalQuest DiagnosticsComment on above:Performed By: #### 27986, 12764, 866, 899, 496, 6399, 47693 #### [facility] [address], [address] [place] [address] [employer]: Dean Maddox MDEosinophils (Bld) [#/Vol]0.354 10*3/uLNormal 15-500Quest DiagnosticsComment on above:Performed By: #### 09546, 99900, 866, 899, 496, 6399, 07280 #### [facility] of [address], [address] [place] [address] [employer]: Dean Maddox MDEosinophils/100 WBC (Bld)3.4 %NormalQuest DiagnosticsComment on above:Performed By: #### 30404, 29474, 866, 899, 496, 6399, 93913 #### [facility] of [address], [address] [place] [address] [employer]: Dean Maddox MDErythrocyte distribution width (RBC) [Ratio] 13.0 %Vehzat86.0-15.0Quest DiagnosticsComment on above:Performed By: #### 21818, 92641, 866, 899, 496, 6399, 79121 #### [facility] [address] [place] [address] [employer]: Dean Maddox MDHematocrit (Bld) [Volume fraction]40.1 %Normal 35.0-45.0Quest DiagnosticsComment on above:Performed By: #### 21316, 82413, 866, 899, 496, 6399, 70086 #### [facility] of [address] [place] [address] [employer]: Dean Maddox MDHemoglobin (Bld) [Mass/Vol]12.8 g/dLNormal 11.7-15.5Quest DiagnosticsComment on above:Performed By: #### 36655, 55690, 866, 899, 496, 6399, 48877 #### [facility] of [address] [place] [address] [employer]: Dean Maddox MDLymphocytes (Bld) [#/Vol]2.007 10*3/uLNormal 850-3900Quest DiagnosticsComment on above:Performed By: #### 20445, 84459, 866, 899, 496, 6399, 44585 #### [facility] of [address], [address] [place] [address] [employer]: Dean Maddox MDLymphocytes/100 WBC (Bld)19.3 %NormalQuest DiagnosticsComment on above:Performed By: #### 64541, 62803, 866, 899, 496, 6399, 20785 #### [facility] [address], [address] [place] [address] [employer]: Dean Maddox MDMCH (RBC) [Entitic mass]30.0 peShjxzz17.0-33.0 Quest DiagnosticsComment on above:Performed By: #### 11870, 85915, 866, 899, 496, 6399, 67745 #### [facility] [address], [address] [place] [address] [employer]: Dean JUAREZCHC (RBC) [Mass/Vol]31.9 g/dLLow32.0-36.0 Quest DiagnosticsComment on above:Result Comment: For adults, a slight decrease in the calculated MCHC value (in the range of 30 to 32 g/dL) is most likely not clinically significant; however, it should be interpreted with caution in correlation with other red cell parameters and the patient's clinical condition.Performed By: #### 03586, 63451, 866, 899, 496, 6399, 26825 #### [facility] [place] [address] [employer]: Dean Maddox MDMCV (RBC) [Entitic vol]94.1 fITjudjn74.0-100.0 Quest DiagnosticsComment on above:Performed By: #### 79908, 43957, 866, 899, 496, 6399, 25375 #### [facility] [address], [address] [place] [address] [employer]: Dean Maddox MDMonocytes (Bld) [#/Vol]0.478 10*3/uLNormal 200-950Quest DiagnosticsComment on above:Performed By: #### 58239, 11358, 866, 899, 496, 6399, 83418 #### [facility] of [address], [address] [place] [address] [employer] Superintendent: Dean Maddox MDMonocytes/100 WBC (Bld)4.6 %NormalQuest DiagnosticsComment on above:Performed By: #### 15354, 78972, 866, 899, 496, 6399, 00549 #### [facility] of [address], [address] [place] [address] [employer]: Dean Maddox MDNeutrophils (Bld) [#/Vol]7.488 10*3/uLNormal 1500-7800Quest DiagnosticsComment on above:Performed By: #### 36600, 58678, 866, 899, 496, 6399, 41071 #### [facility] of [address], [address] [place] [address] [employer]: Dean Maddox MDNeutrophils/100 WBC (Bld)72 %NormalQuest DiagnosticsComment on above:Performed By: #### 56150, 94161, 866, 899, 496, 6399, 71602 #### [facility] of [place] [address] [employer]: Dean Maddox MDPlatelet mean volume (Bld) [Entitic vol]9.6 fL Normal7.5-12.5Quest DiagnosticsComment on above:Performed By: #### 02044, 13694, 866, 899, 496, 6399, 09682 #### [facility] of [place] [address] [employer]: Dean Maddox MDPlatelets (Bld) [#/Vol]367 10*3/uLNormal 140-400Quest DiagnosticsComment on above:Performed By: #### 21674, 95135, 866, 899, 496, 6399, 01178 #### [facility] [address], [address] [place] [address] [employer]: Dean Maddox [facility] ([facility]) [#/Vol]4.26 10*6/uLNormal3.80-5.10 Quest DiagnosticsComment on above:Performed By: #### 88236, 49542, 866, 899, 496, 6399, 88775 #### [facility] [address], [address] [place] [address] [employer] Superintendent: Dean Maddox [facility] ([facility] [#/Vol]10.4 10*3/uLNormal3.8-10.8 Quest DiagnosticsComment on above:Performed By: #### 05145, 87690, 866, 899, 496, 6399, 62790 #### [facility] [address], [address] [place] [address] [employer]: Dean Maddox [facility] PURCELLOMPREHENSIVE METABOLIC PANEL 03-26-2024 Albumin [Mass/Vol]4.1 g/dLNormal3.6-5.1Quest DiagnosticsComment on above:Order Comment: COLLECTION KIT GIVEN TO PATIENT. PATIENT ADVISED TO RETURN.Performed By: #### 76657, 31619, 866, 899, 496, 6399, 41970 #### [facility] [address], [address] [place] [address] [employer] Superintendent: Dean Maddox MDAlbumin/Globulin [Mass ratio]1.3 {ratio}Normal 1.0-2.5Quest DiagnosticsComment on above:Order Comment: COLLECTION KIT GIVEN TO PATIENT. PATIENT ADVISED TO RETURN.Performed By: #### 82013, 71313, 866, 899, 496, 6399, 19109 #### [facility] [address], [address] [place] [address] [employer]: Dean Maddox MDALP [Catalytic activity/Vol]114 U/LNormal 31-125Quest DiagnosticsComment on above:Order Comment: COLLECTION KIT GIVEN TO PATIENT. PATIENT ADVISED TO RETURN.Performed By: #### 64519, 78138, 866, 899, 496, 6399, 33354 #### [facility] [address], [address] [place] [address] [employer] Superintendent: Dean Maddox MDALT [Catalytic activity/Vol]11 U/LNormal6-29 Quest DiagnosticsComment on above:Order Comment: COLLECTION KIT GIVEN TO PATIENT. PATIENT ADVISED TO RETURN.Performed By: #### 07976, 52463, 866, 899, 496, 6399, 74932 #### [facility] [place] [address] [employer]: Dean Maddox MDAST [Catalytic activity/Vol]9 U/UQyv50-20Imzih DiagnosticsComment on above:Order Comment: COLLECTION KIT GIVEN TO PATIENT. PATIENT ADVISED TO RETURN.Performed By: #### 31669, 48721, 866, 899, 496, 6399, 74809 #### [facility] [address], [address] [place] [address] [employer] Superintendent: Dean Maddox MDBilirubin [Mass/Vol]0.5 mg/dLNormal0.2-1.2 Quest DiagnosticsComment on above:Order Comment: COLLECTION KIT GIVEN TO PATIENT. PATIENT ADVISED TO RETURN.Performed By: #### 88657, 44177, 866, 899, 496, 6399, 27812 #### [facility] [address], [address] [place] [address] [employer] Superintendent: Dean Maddox MDCalcium [Mass/Vol]9.8 mg/dLNormal8.6-10.2Quest DiagnosticsComment on above:Order Comment: COLLECTION KIT GIVEN TO PATIENT. PATIENT ADVISED TO RETURN.Performed By: #### 53869, 59904, 866, 899, 496, 6399, 86133 #### [facility] [address], [address] [place] [address] [employer]: Dean GUARDADOhloride [Moles/Vol]106 mmol/JLykeru88-956 Quest DiagnosticsComment on above:Order Comment: COLLECTION KIT GIVEN TO PATIENT. PATIENT ADVISED TO RETURN.Performed By: #### 11523, 57361, 866, 899, 496, 6399, 96456 #### [facility] [address], [address] [place] [address] [employer] Superintendent: Dean Maddox MDCO2 [Moles/Vol]23 mmol/PWqvqxh91-04Keuxg DiagnosticsComment on above:Order Comment: COLLECTION KIT GIVEN TO PATIENT. PATIENT ADVISED TO RETURN.Performed By: #### 79544, 28600, 866, 899, 496, 6399, 93771 #### [facility] [address], [address] [place] [address] [employer] Superintendent: Dean GUARDADOreatinine [Mass/Vol]1.28 mg/dLHigh0.50-0.99 Quest DiagnosticsComment on above:Order Comment: COLLECTION KIT GIVEN TO PATIENT. PATIENT ADVISED TO RETURN.Performed By: #### 88137, 44081, 866, 899, 496, 6399, 46925 #### [facility] [address], [address] [place] [address] [employer] Superintendent: Dean Maddox MDGFR/1.73 sq M.predicted among non-blacks MDRD (S/P/Bld) [Vol rate/Area]52 mL/min/{1.73_m2}Low> OR = 60Quest DiagnosticsComment on above:Order Comment: COLLECTION KIT GIVEN TO PATIENT. PATIENT ADVISED TO RETURN.Performed By: #### 84073, 59671, 866, 899, 496, 6399, 58016 #### [facility] [address], [address] [place] [address] [employer] Superintendent: Dean Maddox MDGlobulin (S) [Mass/Vol]3.1 g/dLNormal1.9-3.7 Quest DiagnosticsComment on above:Order Comment: COLLECTION KIT GIVEN TO PATIENT. PATIENT ADVISED TO RETURN.Performed By: #### 99924, 45282, 866, 899, 496, 6399, 48509 #### [facility] [place] [address] [employer]: Dean Maddox MDGlucose [Mass/Vol]239 mg/hYNvzs37-31Aylhe DiagnosticsComment on above:Order Comment: COLLECTION KIT GIVEN TO PATIENT. PATIENT ADVISED TO RETURN.Result Comment: Fasting reference interval For someone without known diabetes, a glucose value >125 mg/dL indicates that they may have diabetes and this should be confirmed with a follow-up test.Performed By: #### 24090, 53998, 866, 899, 496, 6399, 00303 #### [facility] [place] [address] [employer]: Dean Mdadox MDPotassium [Moles/Vol]4.3 mmol/LNormal3.5-5.3 Quest DiagnosticsComment on above:Order Comment: COLLECTION KIT GIVEN TO PATIENT. PATIENT ADVISED TO RETURN.Performed By: #### 87735, 11830, 866, 899, 496, 6399, 54675 #### [facility] [place] [address] [employer]: Dean Maddox MDProtein [Mass/Vol]7.2 g/dLNormal6.1-8.1Quest DiagnosticsComment on above:Order Comment: COLLECTION KIT GIVEN TO PATIENT. PATIENT ADVISED TO RETURN.Performed By: #### 55140, 87603, 866, 899, 496, 6399, 04654 #### [facility] [address], [address] [place] [address] [employer] Superintendent: Dean Maddox MDSodium [Moles/Vol]138 mmol/XHeplvx192-445Horus DiagnosticsComment on above:Order Comment: COLLECTION KIT GIVEN TO PATIENT. PATIENT ADVISED TO RETURN.Performed By: #### 83620, 50543, 866, 899, 496, 6399, 55107 #### [facility] [address], [address] [place] [address] [employer] Superintendent: Dean Maddox MDUrea nitrogen [Mass/Vol]34 mg/dLHigh7-25Quest DiagnosticsComment on above:Order Comment: COLLECTION KIT GIVEN TO PATIENT. PATIENT ADVISED TO RETURN.Performed By: #### 25717, 57777, 866, 899, 496, 6399, 73891 #### [facility] [address], [address] [place] [address] [employer] Superintendent: Dean Maddox MDUrea nitrogen/Creatinine [Mass ratio]27 mg/mg High6-22Quest DiagnosticsComment on above:Order Comment: COLLECTION KIT GIVEN TO PATIENT. PATIENT ADVISED TO RETURN.Performed By: #### 65326, 84776, 866, 899, 496, 6399, 51358 #### [facility] [address], [address] [place] [address] [employer] Superintendent: Dean Maddox MDCDESTINYATININE, SERUMon 03-66-2109Dpaiedbfoq [Mass/Vol]1.67 mg/dLHigh0.40-1.10[facility] Psychiatric CenterComment on above:Order Comment: For monitoring while [facility]com[facility] has implemented the eGFR calculation approach that does not have a coefficient for race that conforms to the NKF-ASN Task Force Recommendations. Performed By: #### 63625 ####[facility] [address] [place], [place] [address] Abbi Choudhary M.D. [id number] mL/min/1.73 m2Low>=60[facility] Comment on above:Order Comment: For monitoring while on vancomycin therapyOhThe [facility] has implemented the eGFR calculation approach that does not have a coefficient for race that conforms to the NKF-ASN Task Force Recommendations.Result Comment: Estimated GFR was calculated using the 2020 CKD-EPI creatinine equation.Performed By: #### [id number] ####[facility] [address] [place], [place] [address] Abbi Choudhary M.D. [id number] [Mass/Vol]on 72-08-3129ZXN/1.73 sq M.predicted CKD-EPI (S/P/Bld) [Vol rate/Area] 38Low- PINFOhioHealthInterpretation and review of laboratory resultsAbnormal OhioHealthOhioHealthOhioHealthCreatinine, Serumon 44-88-4328Ghcykepjeo [Mass/Vol]1.67 mg/dLHigh0.40 - 1.10 mg/dLOhioHealthGlucose (Bld) [Mass/Vol]on 41-07-8400Ilwkeaz [Mass/Vol]328 mg/fFJvyf54 - 99 mg/dLOhioHealthInterpretation and review of laboratory resultsAbnormalOhioHealthOhioHealthGlucose [Mass/Vol] 312 mg/fZLmfv03 - 99 mg/dLOhioHealthInterpretation and review of laboratory resultsAbnormalOhioHealthOhioHealthGlucose [Mass/Vol]214 mg/fKRjac75 - 99 mg/dL OhioHealthInterpretation and review of laboratory resultsAbnormalOhioHealth OhioHealthGlucose [Mass/Vol]101 mg/fQZnlw03 - 99 mg/dLOhioHealthInterpretation and review of laboratory resultsAbnormalOhioHealthOhioHealthGlucose [Mass/Vol]72 mg/dL65 - 99 mg/dLOhioHealthInterpretation and review of laboratory results NormalOhioHealthOhioHealthLEVETIRACETAMon 70-29-9838vewLGFAMbxhfz [Mass/Vol] ug/mLLowQuest DiagnosticsComment on above:Result Comment: Reference Range: 12.0-46.0 Toxic level is not well established. Interpretation should include a clinical evaluation. For additional information, please refer to http://education.[employer]end[employer]od.[employer]/faq/ARR932 (This link is being provided for informational/educational purposes only.) This test was developed and its analytical performance characteristics have been determined by [employer]. It has not been cleared or approved by the FDA. This assay has been validated pursuant to the CLIA regulations and is used for clinical purposes.Performed By: #### 99312, 57049, 866, 899, 496, 5017, 85691 #### [facility] [address], [address] [place] [address] [employer] Alarm Superintendent: Dean Zimmer 48-35-8427Wltsp TubeHold for add-ons.[facility] GLUCOSE - RALSon 52-42-8914Stbrpmk [Mass/Vol]328 mg/fNCfxx16-77Rkndiz [facility] HospitalComment on above:Performed By: #### [id number] ####[facility] [address] [place], [place] [address] Abbi Choudhary M.D. 36D0 345072Owmdgwx [Mass/Vol]312 mg/iEMigl24-87Uwphpk [facility] CenterComment on above:Performed By: #### [id number] ####[facility] [address] [place] [address] Abbi Choudhary M.D. [id number] [Mass/Vol]214 mg/zZFapv88-99Wnsqvc [facility] CenterComment on above:Performed By: #### 57829 ####[facility] [address] [place] [address] Abbi Choudhary M.D. [id number] [Mass/Vol]101 mg/wPNhzo11-61Sntjua [facility] CenterComment on above:Performed By: #### [id number] ####[facility] [address] [place] [address] Abbi Choudhary M.D. [id number] [Mass/Vol]72 mg/wVChnuna26-89LgvlobDaviess Community Hospital Comment on above:Performed By: #### [id number] ####[facility] [address] [place], [place] [address] Abbi Choudhary M.D. [id number] METABOLIC PANELon 03-25-2024 Anion gap [Moles/Vol]15 mmol/IYhqvoh47-39XsllpnOaklawn Psychiatric CenterComment on above:Order Comment: [facility] has implemented the eGFR calculation approach that does not have a coefficient for race that conforms to the NKF-ASN Task Force Recommendations.Performed By: #### [id number] ####[facility] [address] [place] [address] Abbi Choudhary M.D. [id number] [Mass/Vol]8.3 mg/dLLow8.4-10.2MSt. [facility]'s [facility] on above:Order Comment: [facility] has implemented the eGFR calculation approach that does not have a coefficient for race that conforms to the NKF-ASN Task Force Recommendations.Performed By: #### [id number] ####[facility] [address] [place] [address] Abbi Choudhary M.D. [id number] [Moles/Vol]105 mmol/XZkmwuz73-649GfhewbParkview Noble Hospital on above:Order Comment: [facility] has implemented the eGFR calculation approach that does not have a coefficient for race that conforms to the NKF-ASN Task Force Recommendations.Performed By: #### 80574 ####[facility] [address] [place] [address] Abbi Choudhary M.D. [id number] [Mass/Vol]1.35 mg/dLHigh0.40-1.10[facility] on above:Order Comment: [facility] has implemented the eGFR calculation approach that does not have a coefficient for race that conforms to the NKF-ASN Task Force Recommendations.Performed By: #### [id number] ####[facility] [address] [place] [address] Abbi Choudhary M.D. [id number] mL/min/1.73 m2Low>=60 [facility] on above:Order Comment: [facility] has implemented the eGFR calculation approach that does not have a coefficient for race that conforms to the NKF-ASN Task Force Recommendations. Result Comment: Estimated GFR was calculated using the 2020 CKD-EPI creatinine equation.Performed By: #### [id number] ####[facility] [address] [place] [address] Abbi Choudhary M.D. [id number] [Mass/Vol]345 mg/wASegx92-10DxrixmSt. Mary's [facility]rick Hospital on above:Order Comment: [facility] has implemented the eGFR calculation approach that does not have a coefficient for race that conforms to the NKF-ASN Task Force Recommendations.Performed By: #### 34814 ####[facility] [address] [place] [address] Abbi Choudhary M.D. [id number] (Bld) [Moles/Vol]22 mmol/XFqclqb26-22YkletwOaklawn Psychiatric Center Comment on above:Order Comment: [facility] has implemented the eGFR calculation approach that does not have a coefficient for race that conforms to the NKF-ASN Task Force Recommendations.Performed By: #### [id number] ####[facility] [address] [place] [address] Abbi Choudhary M.D. 36D0 033595Drywuwzkb [Moles/Vol]4.3 mmol/LNormal3.5-5.1MDaviess Community HospitalComsheridan community hospital on above:Order Comment: [facility] has implemented the eGFR calculation approach that does not have a coefficient for race that conforms to the NKF-ASN Task Force Recommendations.Performed By: #### [id number] ####[facility] [address] [place] [address] Abbi Choudhary M.D. [id number] [Moles/Vol]138 mmol/JXlloqg789-617RrlessOaklawn Psychiatric CenterComment on above:Order Comment: [facility] has implemented the eGFR calculation approach that does not have a coefficient for race that conforms to the NKF-ASN Task Force Recommendations.Performed By: #### [id number] ####[facility] [address] [place] [address] Abbi Choudhary M.D. [id number] nitrogen [Mass/Vol] 23 mg/dLNormal8-25Oaklawn Psychiatric CenterComment on above:Order Comment: [facility] has implemented the eGFR calculation approach that does not have a coefficient for race that conforms to the NKF-ASN Task Force Recommendations.Performed By: #### [id number] ####[facility] [address] [place] [address] Abbi Choudhary M.D. [id number] nitrogen/Creatinine [Mass ratio]17.0 mg/wmRirdgf49.0-20.0O[facility]lawn Psychiatric CenterComsheridan community hospital on above:Order Comment: [facility] has implemented the eGFR calculation approach that does not have a coefficient for race that conforms to the NKF-ASN Task Force Recommendations.Performed By: #### [id number] ####[facility] [address] [place], [place] [address] Abbi Choudhary M.D. [id number] CULTURE AEROBIC/ANAEROBICon 31-80-3737DIWHD CULTURE AEROBIC/ANAEROBICBLOOD CULTURE No Growth after 5 daysNormDupont HospitalComment on above:Performed By: #### 78415 ####[facility] [address] [place], [place] [address] Swapnil Brewer M.D. [id number] metabolic 2000 panelon 87-18-6474Vxqkk gap [Moles/Vol]15 mmol/L10 - 20 mmol/LOhioHealthCalcium [Mass/Vol]8.3 mg/dLLow8.4 - 10.2 mg/dLOhioHealthChloride [Moles/Vol]105 mmol/L98 - 108 mmol/LOhioHealthCreatinine [Mass/Vol]1.35 mg/dLHigh0.40 - 1.10 mg/dL OhioHealthGFR/1.73 sq M.predicted CKD-EPI (S/P/Bld) [Vol rate/Area]49Low- PINF OhioHealthGlucose [Mass/Vol]345 mg/hZNfin16 - 99 mg/dLOhioHealthHCO3 [Moles/Vol] 22 mmol/L21 - 32 mmol/LOhioHealthInterpretation and review of laboratory results AbnormalOhioHealthPotassium [Moles/Vol]4.3 mmol/L3.5 - 5.1 mmol/LOhioHealth Sodium [Moles/Vol]138 mmol/L135 - 145 mmol/LOhioHealthUrea nitrogen [Mass/Vol]23 mg/dL8 - 25 mg/dLOhioHealthUrea nitrogen/Creatinine [Mass ratio]17 mg/mg10.0 - 20.0OhioHealthOhioHealthOhioHealthCBCon 74-08-2688KDXJ NRBC0.0 %[facility] Memorial HospitalComment on above:Performed By: #### 03474 ####[facility] [address] [place], [place] [address] Abbi Choudhary M.D. [id number] NRBC ABS COUNT0.00 K/mcLNormal0.00-0.00O[facility] Psychiatric CenterComment on above:Performed By: #### [id number] ####[facility] [address] [place] [address] Abbi Choudhary M.D. [id number] distribution width (RBC) [Ratio]13.0 %Ngrmrv00.6-14.8 [facility] CenterComment on above:Performed By: #### 01566 ####[facility] [address] [place] [address] Abbi Choudhary M.D. [id number] (Bld) [Volume fraction]29.7 %Low36.0-46.0O[facility]wn Psychiatric CenterComment on above:Performed By: #### [id number] ####[facility] [address] [place] [address] Abbi Choudhary M.D. [id number] (Bld) [Mass/Vol]10.2 g/dLLow12.0-16.0 [facility] CenterComment on above:Performed By: #### [id number] ####[facility] [address] [place] [address] Abbi Choudhary M.D. [id number] (RBC) [Entitic mass]30.7 ysUnfbkg73.0-34.0O[facility]wn Psychiatric CenterComment on above: Performed By: #### [id number] ####[facility] [address] [place] [address] Abbi Choudhary M.D. [id number] (RBC) [Entitic vol]89.5 dYJgtaei74.0-100.0O[facility] Psychiatric CenterComment on above:Performed By: #### 27746 ####[facility] [address] [place] [address] Abbi Choudhary M.D. [id number] CORPUSCULAR HEMOGLOBIN CONC34.3 g/iIIwbbop86.0-37.0O[facility] Psychiatric CenterComment on above: Performed By: #### [id number] ####[facility] [address] [place] [address] Abbi Choudhary M.D. [id number] mean volume (Bld) [Entitic vol]9.0 fLLow 9.4-12.4O[facility] Psychiatric CenterComment on above:Performed By: #### 25212 ####[facility] [address] [place] [address] Abbi Choudhary M.D. [id number] Platelets (Bld) [#/Vol]297 10*3/xVGeetqa123-839RhwdbyOaklawn Psychiatric CenterComment on above:Performed By: #### [id number] ####[facility] [address] [place] [address] Abbi Choudhary M.D. [id number] (Bld) [#/Vol]3.32 10*6/uLLow4.00-5.20 [facility] CenterComsheridan community hospital on above:Performed By: #### 62409 ####[facility] [address] [place] [address] Abbi Choudhary M.D. [id number] (Bld) [#/Vol]8.66 10*3/uLNormal4.50-11.00[facility] on above: Performed By: #### [id number] ####[facility] [address] [place] [address] Abbi Choudhary M.D. [id number] panel Auto (Bld)on 54-03-6518Dverqeeexjz distribution width (RBC) [Entitic vol]13 %11.6 - [...] (Bld) [#/Vol]3.32 10*6/uLLowOhioHealthWBC (Bld) [#/Vol] 8.66 10*3/uLOhioHealthOhioHealthCONSULTon 91-69-8598EHZISFEVdekfeVouncsWellstone Regional Hospital 12- Leadon 48-31-3421Kqjdrp Mlsw164KPRRpmnKctnreP Gnxy32ixtpwoy OhioHealthP-R Noiybubk217 msOhioHealthQ-T Uctryzux978 msOhioHealthQRS Mktfhudc65 msOhioHealthQTC Calculation (Bezet)441 msOhioHealthR Lgbg19latdpoyKmyoXmroznC Uuof39drewytyCuszVobhybXsyvuhvrcyw Ojpg187ZJAIiilDimquvOISMRntvYuubaxYNOim 67-45-0348ZwyxXkeybgAsojkou (Bld) [Mass/Vol]on 77-65-2198Niqfbkh [Mass/Vol]117 mg/ySOuge82 - 99 mg/dLOhioHealthInterpretation and review of laboratory results AbnormalOhioHealthOhioHealthGlucose [Mass/Vol]142 mg/pJUaax39 - 99 mg/dL OhioHealthInterpretation and review of laboratory resultsAbnormalOhioHealth OhioHealthGlucose [Mass/Vol]148 mg/aASula85 - 99 mg/dLOhioHealthInterpretation and review of laboratory resultsAbnormalOhioHealthOhioHealthGlucose [Mass/Vol] 286 mg/mVJgkm84 - 99 mg/dLOhioHealthInterpretation and review of laboratory resultsAbnormalOhioHealthOhioHealthGlucose [Mass/Vol]343 mg/xVHshd91 - 99 mg/dL CaliforniaHealthInterpretation and review of laboratory resultsAbnormalOhioHealth OhioOhio Valley Surgical HospitalGlucose [Mass/Vol]469 mg/dLCritically high65 - 99 mg/dLOhioHealth Interpretation and review of laboratory resultsAbnormalOhioHealThe Surgical Hospital at SouthwoodsioOhio Valley Surgical Hospital OhioHealthGlucose [Mass/Vol]mg/dLCritically high65 - 99 mg/dLOhioOhio Valley Surgical Hospital Interpretation and review of laboratory resultsAbnormalODayton Children's HospitalealThe Surgical Hospital at SouthwoodsioOhio Valley Surgical Hospital OhioOhio Valley Surgical HospitalGold Topon 06-02-7545Awuop TubeHold for add-ons.[facility] HospitalioOhio Valley Surgical HospitalH AND Paulino 03-25-2024H AND PNormalOaklawn Psychiatric CenterLACTIC ACID, PLASMAon 38-77-3530SIIPUV ACID, PLASMA2.1 mmol/LHigh0.6-2.0[facility] Psychiatric CenterComment on above:Performed By: #### 73537 ####[facility] [address] [place], [place] [address] Abbi Choudhary M.D. [id number] [Moles/Vol]on 03-25-2024 Interpretation and review of laboratory resultsAbnormTwin City Hospital Lactic Acid, Plasmaon 58-54-0409Jskbzox [Moles/Vol]2.1 mmol/LHigh0.6 - 2.0 mmol/LOhioHealthPOC GLUCOSE - RALSon 16-30-5808Eidrwem [Mass/Vol]117 mg/dLHigh 65-99MDaviess Community HospitalComment on above:Performed By: #### [id number] ####[facility] [address] [place], [place] [address] Abbi Choudhary M.D. [id number] [Mass/Vol]142 mg/lCAzlh45-49NjusxxDaviess Community HospitalComment on above:Performed By: #### 79065 ####[facility] [address] [place], [place] [address] Abbi Choudhary M.D. [id number] [Mass/Vol]148 mg/kHXedy36-51RluxmvDaviess Community Hospital Comment on above:Performed By: #### 05087 ####[facility] [address] [place], [place] [address]Alisia Choudhary M.D. [id number] [Mass/Vol]286 mg/yIFrgf29-21 [facility]iatric CenterComment on above:Performed By: #### [id number] ####[facility] [address] [place], [place] [address] Abbi Choudhary M.D. [id number] [Mass/Vol]343 mg/vOOlhj19-52EarojmDaviess Community HospitalComment on above:Performed By: #### [id number] ####[facility] [address] [place], [place] [address] Abbi Choudhary M.D. [id number] [Mass/Vol]469 mg/dLOff scale [address]Comment on above:Order Comment: Critical result acted upon time of test. Test performed at bedside.Performed By: #### [id number] ####[facility] [address] [place] [address] Abbi Choudhary M.D. [id number] GLUCOSE>Off scale [address]Comment on above:Order Comment: Critical result acted upon time of test. Test performed at bedside.Performed By: #### [id number] ####[facility] [address] [place], [place] [address] Abbi Choudhary M.D. 36D0 500711NVGDAQ LACTIC ACID, PLASMAon 44-22-7411ZYHJJD ACID, PLASMA1.2 mmol/LNormal 0.6-2.0[facility] Psychiatric CenterComment on above:Performed By: #### [id number] ####[facility] [address] [place] [address] Abbi Choudhary M.D. 3 [id number] ACID, PLASMA2.2 mmol/LHigh0.6-2.0O[facility] Psychiatric CenterComment on above:Performed By: #### [id number] ####[facility] [address] [place], [place] [address] Abbi Choudhary M.D. [id number] Lactic Acid, Plasmaon 95-07-7470Oilplqmpjjcdfx and review of laboratory resultsNormalOhioHealthLactate [Moles/Vol]1.2 mmol/L0.6 - 2.0 mmol/LOhioHealthOhioHealthInterpretation and review of laboratory resultsAbnormalOhioHealthLactate [Moles/Vol]2.2 mmol/LHigh 0.6 - 2.0 mmol/LOhioHealthOhioHealthURINALYSISon 24-07-2704IXIESMBJ, URINERare AbnormalNone SeenOaklawn Psychiatric CenterComment on above:Order Comment: Microscopic examination is performed on all urinalysis samples and only positive findings are reported. The test for blood on the chemical analytic portion of urinalysis may also be positive due to hemoglobinuria and myoglobinuria and if red blood cells are present they are quantified by microscopic examination. Performed By: #### [id number] ####[facility] [address] [place] [address] Abbi Choudhary M.D. [id number], URINENegativeNormalNegDeKalb Memorial HospitalComment on above:Order Comment: Microscopic examination is performed on all urinalysis samples and only positive findings are reported. The test for blood on the chemical analytic portion of urinalysis may also be positive due to hemoglobinuria and myoglobinuria and if red blood cells are present they are quantified by microscopic examination.Performed By: #### 36662 ####[facility] [address] [place] [address] Abbi Choudhary M.D. [id number], URINE ModerateAbnormalNegDeKalb Memorial HospitalComment on above:Order Comment: Microscopic examination is performed on all urinalysis samples and only positive findings are reported. The test for blood on the chemical analytic portion of urinalysis may also be positive due to hemoglobinuria and myoglobinuria and if red blood cells are present they are quantified by microscopic examination. Performed By: #### [id number] ####[facility] [address] [place] [address] Abbi Choudhary M.D. [id number] (U)ClearNormalCDeaconess Cross Pointe Center Comment on above:Order Comment: Microscopic examination is performed on all urinalysis samples and only positive findings are reported. The test for blood on the chemical analytic portion of urinalysis may also be positive due to hemoglobinuria and myoglobinuria and if red blood cells are present they are quantified by microscopic examination.Performed By: #### [id number] ####[facility] [address] [place] [address] Abbi Choudhary M.D. [id number] (U)Yellow NormalColorless, [facility] on above:Order Comment: Microscopic examination is performed on all urinalysis samples and only positive findings are reported. The test for blood on the chemical analytic portion of urinalysis may also be positive due to hemoglobinuria and myoglobinuria and if red blood cells are present they are quantified by microscopic examination. Performed By: #### [id number] ####[facility] [address] [place] [address] Abbi Choudhary M.D. [id number] Ql (U)>=500AbnormalNegDeKalb Memorial HospitalComsheridan community hospital on above:Order Comment: Microscopic examination is performed on all urinalysis samples and only positive findings are reported. The test for blood on the chemical analytic portion of urinalysis may also be positive due to hemoglobinuria and myoglobinuria and if red blood cells are present they are quantified by microscopic examination.Performed By: #### [id number] ####[facility] [address] [place] [address] Abbi Choudhary M.D. [id number] Ql (U) NegativeNormalNegDeKalb Memorial HospitalComsheridan community hospital on above:Order Comment: Microscopic examination is performed on all urinalysis samples and only positive findings are reported. The test for blood on the chemical analytic portion of urinalysis may also be positive due to hemoglobinuria and myoglobinuria and if red blood cells are present they are quantified by microscopic examination. Performed By: #### [id number] ####[facility] [address] [place] [address] Abbi Choudhary M.D. [id number] esterase Test strip Ql (U)NegativeNormal Memorial Hospital and Health Care CenterComsheridan community hospital on above:Order Comment: Microscopic examination is performed on all urinalysis samples and only positive findings are reported. The test for blood on the chemical analytic portion of urinalysis may also be positive due to hemoglobinuria and myoglobinuria and if red blood cells are present they are quantified by microscopic examination.Performed By: #### 04610 ####[facility] [address] [place], [place] [address] Abbi Choudhary M.D. [id number], URINERareNormalNone Seen, [facility] Comment on above:Order Comment: Microscopic examination is performed on all urinalysis samples and only positive findings are reported. The test for blood on the chemical analytic portion of urinalysis may also be positive due to hemoglobinuria and myoglobinuria and if red blood cells are present they are quantified by microscopic examination.Performed By: #### 60027 ####[facility] [address] [place] [address] Abbi Choudhary M.D. [id number], URINE NegativeNormalNegDeKalb Memorial HospitalComment on above:Order Comment: Microscopic examination is performed on all urinalysis samples and only positive findings are reported. The test for blood on the chemical analytic portion of urinalysis may also be positive due to hemoglobinuria and myoglobinuria and if red blood cells are present they are quantified by microscopic examination. Performed By: #### 13551 ####[facility] [address] [place], [place] [address] Abbi Choudhary M.D. [id number] (U)5.0 [pH]Normal5.0-7.0[facility] Comment on above:Order Comment: Microscopic examination is performed on all urinalysis samples and only positive findings are reported. The test for blood on the chemical analytic portion of urinalysis may also be positive due to hemoglobinuria and myoglobinuria and if red blood cells are present they are quantified by microscopic examination.Performed By: #### 65023 ####[facility] [address] [place], [place] [address] Abbi Choudhary M.D. [id number] (U) [Mass/Vol]100 mg/dLAbnormalNegDeKalb Memorial HospitalComment on above:Order Comment: Microscopic examination is performed on all urinalysis samples and only positive findings are reported. The test for blood on the chemical analytic portion of urinalysis may also be positive due to hemoglobinuria and myoglobinuria and if red blood cells are present they are quantified by microscopic examination.Performed By: #### [id number] ####[facility] [address] [place] [address]Alisia Choudhary M.D. [id number] LM.HPF (Urine sed) [#/Area]2 /[HPF]Normal0-3MSt. Mary's [facility] Hospital on above:Order Comment: Microscopic examination is performed on all urinalysis samples and only positive findings are reported. The test for blood on the chemical analytic portion of urinalysis may also be positive due to hemoglobinuria and myoglobinuria and if red blood cells are present they are quantified by microscopic examination. Performed By: #### [id number] ####[facility] [address] [place] [address] Abbi Choudhary M.D. [id number] gravity (U) [Rel density]1.021Normal 1.005-1.025[facility] on above:Order Comment: Microscopic examination is performed on all urinalysis samples and only positive findings are reported. The test for blood on the chemical analytic portion of urinalysis may also be positive due to hemoglobinuria and myoglobinuria and if red blood cells are present they are quantified by microscopic examination.Performed By: #### [id number] ####[facility] [address] [place] [address] Abbi Choudhary M.D. [id number] EPITHELIAL2 /hpfNormal0-4[facility] on above:Order Comment: Microscopic examination is performed on all urinalysis samples and only positive findings are reported. The test for blood on the chemical analytic portion of urinalysis may also be positive due to hemoglobinuria and myoglobinuria and if red blood cells are present they are quantified by microscopic examination.Performed By: #### [id number] ####[facility] [address] [place] [address] Abbi Choudhary M.D. [id number], URINE<2.0Normal<2.0[facility] on above:Order Comment: Microscopic examination is performed on all urinalysis samples and only positive findings are reported. The test for blood on the chemical analytic portion of urinalysis may also be positive due to hemoglobinuria and myoglobinuria and if red blood cells are present they are quantified by microscopic examination. Performed By: #### [id number] ####[facility] [address] [place], [place] [address] Abbi Choudhary M.D. [id number] LM.HPF (Urine sed) [#/Area]5 /[HPF]Normal0-5O[facility] Psychiatric CenterComment on above:Order Comment: Microscopic examination is performed on all urinalysis samples and only positive findings are reported. The test for blood on the chemical analytic portion of urinalysis may also be pos itive due to hemoglobinuria and myoglobinuria and if red blood cells are present they are quantified by microscopic examination.Performed By: #### [id number] ####[facility] [address] [place], [place] [address] Abbi Choudhary M.D. [id number] AEROBIC CULTUREon 91-56-4757AFLMA AEROBIC CULTUREAbIndiana University Health [facility] Comment on above:Performed By: #### [id number] ####[facility] [address] [place] [address] Swapnil Brewer M.D. [id number] By: Navneet Parr on 69-58-4737Exdgpnup Auto Ql (U) RareAbnormalNone Seen /hpfOhioHealthBilirubin Ql [...] - 1.025OhioHealthUrobilinogen (U) [Mass/Vol]mg/dLNINF - 2.0 mg/dL OhioOhio Valley Surgical HospitalWBC Auto (Urine sed) [#/Area]5OhioHealthOhioHealthOhioHealthWOUND AEROBIC AND ANAEROBIC CULTUREon 97-95-8865QGYIK AEROBIC AND ANAEROBIC CULTURE CULTURE No Growth after 5 days GRAM STAIN RESULT Few WBC Many RBC No Organisms SeenNoDeaconess HospitalComment on above:Performed By: #### [id number] ####[facility] [address] [place], [place] [address] Swapnil Brewer M.D. [id number] AEROBIC AND ANAEROBIC CULTUREAbnoDeaconess HospitalComment on above:Performed By: #### [id number] ####[facility] [address] [place] [address] Swapnil Brewer M.D. [id number] METABOLIC PANEL on 52-99-3905Ldqiu gap [Moles/Vol]20 mmol/GNkouoy92-83SyhqcgOaklawn Psychiatric Center Comment on above:Order Comment: [facility] has implemented the eGFR calculation approach that does not have a coefficient for race that conforms to the NKF-ASN Task Force Recommendations.Performed By: #### [id number] ####[facility] [address] [place] [address] Abbi Choudhary M.D. 36D0 [id number] [Mass/Vol]9.3 mg/dLNormal8.4-10.2MDaviess Community HospitalComment on above:Order Comment: [facility] has implemented the eGFR calculation approach that does not have a coefficient for race that conforms to the NKF-ASN Task Force Recommendations.Performed By: #### [id number] ####[facility] [address] [place], [place] [address] Abbi Choudhary M.D. [id number] [Moles/Vol]97 mmol/GHrk62-253WxajbnParkview Noble Hospital on above:Order Comment: [facility] has implemented the eGFR calculation approach that does not have a coefficient for race that conforms to the NKF-ASN Task Force Recommendations.Performed By: #### [id number] ####[facility] [address] [place] [address] Abbi Choudhary M.D. [id number] [Mass/Vol]1.44 mg/dLHigh0.40-1.10[facility] on above:Order Comment: [facility] has implemented the eGFR calculation approach that does not have a coefficient for race that conforms to the NKF-ASN Task Force Recommendations.Performed By: #### [id number] ####[facility] [address] [place] [address] Abbi Choudhary M.D. [id number] mL/min/1.73 m2Low>=60 [facility] on above:Order Comment: [facility] has implemented the eGFR calculation approach that does not have a coefficient for race that conforms to the NKF-ASN Task Force Recommendations. Result Comment: Estimated GFR was calculated using the 2020 CKD-EPI creatinine equation.Performed By: #### [id number] ####[facility] [address] [place] [address] Abbi Choudhary M.D. [id number] [Mass/Vol]646 mg/dLOff scale high 65-99MSt. [facility] on above:Order Comment: [facility] has implemented the eGFR calculation approach that does not have a coefficient for race that conforms to the NKF-ASN Task Force Recommendations.Performed By: #### [id number] ####[facility] [address] [place] [address] Abbi Choudhary M.D. [id number] (Bld) [Moles/Vol]22 mmol/L Pedsqf05-60EdxpxvParkview Noble Hospital on above:Order Comment: [facility] has implemented the eGFR calculation approach that does not have a coefficient for race that conforms to the NKF-ASN Task Force Recommendations.Performed By: #### [id number] ####[facility] [address] [place] [address] Abbi Choudhary M.D. [id number] [Moles/Vol]4.6 mmol/L Normal3.5-5.1MSt. Mary's [facility] on above:Order Comment: [facility] has implemented the eGFR calculation approach that does not have a coefficient for race that conforms to the NKF-ASN Task Force Recommendations.Performed By: #### [id number] ####[facility] [address] [place] [address] Abbi Choudhary M.D. [id number] [Moles/Vol]134 mmol/LLow 135-145[facility] on above:Order Comment: [facility] has implemented the eGFR calculation approach that does not have a coefficient for race that conforms to the NKF-ASN Task Force Recommendations.Performed By: #### [id number] ####[facility] [address] [place] [address] Abbi Choudhary M.D. [id number] nitrogen [Mass/Vol]24 mg/dL Normal8-25[facility] on above:Order Comment: [facility] has implemented the eGFR calculation approach that does not have a coefficient for race that conforms to the NKF-ASN Task Force Recommendations.Performed By: #### [id number] ####[facility] [address] [place] [address] Abbi Choudhary M.D. [id number] nitrogen/Creatinine [Mass ratio]16.7 mg/rtUejpik80.0-20.0[facility] on above:Order Comment: [facility] has implemented the eGFR calculation approach that does not have a coefficient for race that conforms to the NKF-ASN Task Force Recommendations.Performed By: #### [id number] ####[facility] [address] [place] [address] Abbi Choudhary M.D. [id number] GAS, VENOUSon 16-23-5802SWTX EXCESS, VENOUS-3.8Low-2.0-2.0[facility] HospitalComment on above:Performed By: #### [id number] ####[facility] [address] [place], [place] [address] Abbi Choudhary M.D. [id number] (Bld) [Moles/Vol]22.3 mmol/LLow24.0-28.0 [facility] HospitalComment on above:Performed By: #### [id number] ####[facility] [address] [place] [address] Abbi Choudhary M.D. [id number] (Bld) [Volume fraction]40.0 %Woglrd87.0-46.0O[facility] Psychiatric CenterComment on above:Performed By: #### [id number] ####[facility] [address] [place] [address] Abbi Choudhary M.D. [id number] (Bld) [Mass/Vol]13.0 g/dLNormal 12.0-16.0[facility] Psychiatric CenterComment on above:Performed By: #### [id number] ####[facility] [address] [place] [address] Abbi Choudhary M.D. 36D0 244855Rdazhb saturation in Blood69.9 %Szvzfu05.0-70.0[facility] Comment on above:Performed By: #### [id number] ####[facility] [address] [place] [address] Abbi Choudhary M.D. [id number] GNFKDR37.4 mm SpIukedy67.0-51.0 [facility] CenterComment on above:Performed By: #### [id number] ####[facility] [address] [place] [address] Abbi Choudhary M.D. [id number] VENOUS 7.30Low7.32-7.42[facility] Psychiatric CenterComment on above:Performed By: #### [id number] ####[facility] [address] [place], [place] [address] Abbi Choudhary M.D. 36D0 [id number] JHSEEA73 mm IuCgll02-69SqxaymOaklawn Psychiatric CenterComment on above: Performed By: #### [id number] ####[facility] [address] [place], [place] [address] Abbi Choudhary M.D. [id number] metabolic 2000 panelOrdered By: Kendra Bae on 18-23-5849Lrppv gap [Moles/Vol]20 mmol/L10 - 20 mmol/LOhioHealthCalcium [Mass/Vol]9.3 mg/dL8.4 - 10.2 mg/dLOhioHealthChloride [Moles/Vol]97 mmol/LLow98 - 108 mmol/LOhioHealthCreatinine [Mass/Vol]1.44 mg/dLHigh0.40 - 1.10 mg/dL OhioHealthGFR/1.73 sq M.predicted CKD-EPI (S/P/Bld) [Vol rate/Area]46Low- PINF OhioHealthGlucose [Mass/Vol]646 mg/dLCritically high65 - 99 mg/dLOhioHealthHCO3 [Moles/Vol]22 mmol/L21 - 32 mmol/LOhioHealthInterpretation and review of laboratory resultsAbnormalOhioHealthPotassium [Moles/Vol]4.6 mmol/L3.5 - 5.1 mmol/LOhioHealthSodium [Moles/Vol]134 mmol/DPwe447 - 145 mmol/LOhioHealthUrea nitrogen [Mass/Vol]24 mg/dL8 - 25 mg/dLOhioHealthUrea nitrogen/Creatinine [Mass ratio]16.7 mg/mg10.0 - 20.0OhioHealthOhioHealthOhioHealthCBC Auto Differentialon 37-75-8524Sfoktjpdz (Bld) [#/Vol]0.06 10*3/uLOhioHealthBasophils/100 WBC (Bld) 0.6 %OhioHealthEosinophils [...] (Bld) [#/Vol] 9.56 10*3/uLOhioHealthOhioHealthCBC WITH AUTO DIFFERENTIALon 04-85-0217NZTD NRBC 0.0 %[facility] HospitalComment on above:Performed By: #### [id number] ####[facility] [address] [place] [address] Abbi Choudhary M.D. 36 [id number] NRBC ABS COUNT0.00 K/mcLNormal0.00-0.00[facility] Comment on above:Performed By: #### [id number] ####[facility] [address] [place] [address] Abbi Choudhary M.D. [id number] ABSOLUTE COUNT0.06 K/mcL Normal0.00-0.30[facility] HospitalComment on above:Performed By: #### [id number] ####[facility] [address] [place] [address] Abbi Choudhary M.D. [id number]/100 WBC (Bld)0.6 %[facility] HospitalComment on above:Performed By: #### [id number] ####[facility] [address] [place] [address] Abbi Choudhary M.D. [id number] (Bld) [#/Vol]0.33 10*3/uLNormal 0.00-0.50O[facility] Psych[facility] CenterComment on above:Performed By: #### [id number] ####[facility] [address] [place] [address] Abbi Choudhary M.D. 36 [id number]/100 WBC (Bld)3.5 %[facility] HospitalComment on above:Performed By: #### [id number] ####[facility] [address] [place] [address] Abbi Choudhary M.D. [id number] distribution width (RBC) [Ratio] 13.0 %Uimosz21.6-14.8O[facility] Psychiatric CenterComment on above:Performed By: #### [id number] ####[facility] [address] [place] [address] Abbi Choudhary M.D. [id number] (Bld) [Volume fraction]37.6 %Oontfa56.0-46.0[facility] Psych[facility] CenterComment on above:Performed By: #### [id number] ####[facility] [address] [place] [address] Abbi Choudhary M.D. [id number] (Bld) [Mass/Vol]12.5 g/uAGfvmfk48.0-16.0[facility] CenterComment on above: Performed By: #### [id number] ####[facility] [address] [place] [address] Abbi Choudhary M.D. [id number] ABSOLUTE0.05 K/mcLNormal0.00-0.30[facility] CenterComment on above:Performed By: #### [id number] ####[facility] [address] [place] [address] Abbi Choudhary M.D. [id number] PERCENT0.50 % NormalOaklawn Psychiatric CenterComment on above:Result Comment: The IG parameter is the percentage of metamyelocytes, myelocytes and promyelocytes.An immature granulocyte count (IG) of 1% or more suggests the possibility of infection, an IG countof 3% is very likely related to an infection.Performed By: #### [id number] ####[facility] [address] [place] [address] Abbi Choudhary M.D. 36 [id number] (Bld) [#/Vol]1.34 10*3/uLNormal0.90-4.00[facility] CenterComment on above:Performed By: #### [id number] ####[facility] [address] [place] [address] Abbi Choudhary M.D. [id number]/100 WBC (Bld) 14.0 %[facility] HospitalComment on above:Performed By: #### [id number] ####[facility] [address] [place] [address] Abbi Choudhary M.D. 36 [id number] (RBC) [Entitic mass]30.3 gnTlmmtb34.0-34.0[facility] Comment on above:Performed By: #### [id number] ####[facility] [address] [place] [address] Abbi Choudhary M.D. [id number] (RBC) [Entitic vol]91.0 fLNormal 80.0-100.0[facility] CenterComment on above:Performed By: #### [id number] ####[facility] [address] [place] [address] Abbi Choudhary M.D. 36 [id number] CORPUSCULAR HEMOGLOBIN CONC33.2 g/mSCywmir47.0-37.0[facility] CenterComment on above:Performed By: #### [id number] ####[facility] [address] [place] [address] Abbi Choudhary M.D. [id number] (Bld) [#/Vol] 0.43 10*3/uLNormal0.30-0.90[facility] CenterComment on above:Performed By: #### [id number] ####[facility] [address] [place] [address] Abbi Choudhary M.D. [id number]/100 WBC (Bld)4.5 %NormalOaklawn Psychiatric CenterComment on above:Performed By: #### [id number] ####[facility] [address] [place] [address] Abbi Choudhary M.D. [id number] ABSOLUTE COUNT7.35 K/mcLHigh 1.70-7.00[facility] CenterComment on above:Performed By: #### [id number] ####[facility] [address] [place] [address] Abbi Choudhary M.D. 36 [id number]/100 WBC (Bld)76.9 %NormalOaklawn Psychiatric CenterComment on above:Performed By: #### [id number] ####[facility] [address] [place] [address] Abbi Choudhary M.D. [id number] mean volume (Bld) [Entitic vol]9.4 fLNormal9.4-12.4[facility] HospitalComment on above:Performed By: #### [id number] ####[facility] [address] [place], [place] [address] Abbi Choudhary M.D. [id number] (Bld) [#/Vol]371 10*3/lSWlwlbc092-541AfkvfoOaklawn Psychiatric Center Comment on above:Performed By: #### [id number] #### [facility] [address] [place] [address] Abbi Choudhary M.D. [id number] (Bld) [#/Vol]4.13 10*6/uLNormal 4.00-5.20[facility] CenterComment on above:Performed By: #### [id number] #### [facility] [address] [place] [address] Abbi Choudhary M.D. 36 [id number] (Bld) [#/Vol]9.56 10*3/uLNormal4.50-11.00[facility] Comment on above:Performed By: #### [id number] ####[facility] [address] [place], [place] [address] Abbi Choudhary M.D. [id number] [Mass/Vol]on 03-24-2024 Interpretation and review of laboratory resultsAbnormalOhioHealthOhioHealthCRP, INFLAMMATIONon 73-27-8155DLI [Mass/Vol]15.1 mg/LHigh0.0-10.0[facility]iatric CenterComsheridan community hospital on above:Performed By: #### [id number] ####[facility] [address] [place] [address] Abbi Choudhary M.D. [id number], Inflammationon 65-29-3857TIO [Mass/Vol]15.1 mg/LHigh0.0 - 10.0 mg/LOhioHealthED Prov Noteon 10-01-8046MO Prov NoteNoalOaklawn Psychiatric CenterESR Westergren method (Bld) [Velocity]on 66-32-0462JON (Bld) [Velocity]62 mm/hHighOhioHealthInterpretation and review of laboratory resultsAbnormalOhioHealthOhioHealthGas panel (BldV)on 92-52-7638Slfc excess Calc (BldV) [Moles/Vol]-3.8000 mmol/LLow-2.0 - 2.0 OhioHealthCO2 (BldV) [Partial pressure]47.4 mm[Hg]OhioHealthHCO3 (Bld) [Moles/Vol]22.3 mmol/LLow24.0 - 28.0 mmol/LOhioHealthHematocrit (BldA) [Volume fraction]40 %36.0 - 46.0 %OhioHealthHemoglobin (Bld) [Mass/Vol]13 g/dL12.0 - 16.0 g/dLOhioHealthInterpretation and review of laboratory resultsAbnormal OhioHealthOxygen (BldV) [Partial pressure]41 mm[Hg]HighOhioHealthOxygen saturation in Venous blood69.9 %40.0 - 70.0 %OhioHealthpH (BldV)7.3 [pH]Low7.32 - 7.42OhioHealthOhioHealthHEPATIC FUNCTION PANELon 80-87-0312Ztirjcv [Mass/Vol] 4.2 g/dLNormal3.2-5.2MDaviess Community HospitalComment on above:Performed By: #### [id number] #### [facility] [address] [place] [address] Abbi Choudhary M.D. [id number] [Catalytic activity/Vol]139 U/NKtqtiz52-520GasmfbOaklawn Psychiatric Center Comment on above:Performed By: #### [id number] ####[facility] [address] [place] [address] Abbi Choudhary M.D. [id number] [Catalytic activity/Vol]16 U/L Normal0-35 U/[facility] CenterComment on above:Performed By: #### [id number] #### [facility] [address] [place] [address] Abbi Choudhary M.D. 36D0 353786DJE [Catalytic activity/Vol]16 U/LNormal0-35 U/[facility] Comment on above:Performed By: #### [id number] ####[facility] [address] [place] [address] Abbi Choudhary M.D. [id number] [Mass/Vol]0.5 mg/dLNormal 0.0-1.3MDaviess Community HospitalComment on above:Performed By: #### [id number] ####[facility] [address] [place], [place] [address] Abbi Choudhary M.D. [id number] BILIRUBIN, DIRECT<Normal0.0-0.4[facility] Psychiatric CenterComment on above:Performed By: #### [id number] ####[facility] [address] [place] [address] Abbi Choudhayr M.D. [id number] [Mass/Vol]8.1 g/dLHigh6.0-8.0[facility] Comment on above:Performed By: #### [id number] ####[facility] [address] [place] [address] Abbi Choudhary M.D. [id number] function 2000 panelon 00-13-2776Cbhxqud [Mass/Vol]4.2 g/dL3.2 - 5.2 g/dLOhioHealthALP [Catalytic activity/Vol]139 U/L40 - 150 U/LOhioHealthALT [Catalytic activity/Vol]16 U/L0-35 U/LOhioHealthAST [Catalytic activity/Vol]16 U/L0-35 U/LOhioHealthBilirubin [Mass/Vol]0.5 mg/dL0.0 - 1.3 mg/dLOhioHealthBilirubin.conjugated [Mass/Vol]mg/dL 0.0 - 0.4 mg/dLOhioHealthInterpretation and review of laboratory resultsAbnormal OhioHealthProtein [Mass/Vol]8.1 g/dLHigh6.0 - 8.0 g/dLOhioHealthOhioHealthLACTIC ACID, WHOLE BLOODon 32-86-6620QGOLKD ACID, WHOLE BLOOD3.0 mmol/LHigh0.6-2.0 [facility] CenterComment on above:Performed By: #### [id number] ####[facility] [address] [place], [place] [address] Abbi Choudhary M.D. [id number] (Bld) [Moles/Vol]on 81-48-6461Mgwcoilqsepqhj and review of laboratory results AbnormalOhioHealthLactate [Moles/Vol]3 mmol/LHigh0.6 - 2.0 mmol/LOhioHealth [facility] HospitalLight Blue Topon 23-32-1932Zosve TubeHold for add-ons.[facility] HospitalNo Panel Informationon 49-17-2346DhshXyuysnEXWVAAFUOYFHO RATEon 03-24-2024 SEDIMENTATION RATE, MAKOFDNYIUP22 mm/hrHigh0-20[facility] CenterComment on above:Performed By: #### [id number] ####[facility] [address] [place], [place] [address] Abbi Choudhary M.D. [id number] 30-14-6213XQYVBHWX TROPONIN T NG/L22 ng/LOff scale high<=14[facility]iatric CenterComment on above:Performed By: #### [id number] ####[facility] [address] [place] [address] Abbi Choudhary M.D. [id number] T INTERPRETATIONPossible acute cardiac injury.Normal [facility] CenterComment on above:Performed By: #### [id number] ####[facility] [address] [place], [place] [address] Abbi Choudhary M.D. [id number] 86-98-1304Ydmfnunwaajcji and review of laboratory resultsAbnormalOhioHealth Troponin T22 ng/LCritically highNINF - 14 ng/LOhioHealthTroponin T InterpretationPossible acute cardiac injury.[facility] HospitalioHealthXR Finger - left 2 Viewson 38-12-6228IA [facility] RISOhioHealthRadiology Study observation (narrative)[facility] Brent[facility] HospitalXR Finger - left 2 ViewsOrdered By: Mayco Cortez on 48-75-2227InfuKqxqkl Work Phone: XR TOE(S) LEFT 2+ VIEWSon 73-69-2435HQ TOE(S) LEFT 2+ VIEWSNormalOaklawn Psychiatric CenterComment on above:Order Comment: Injury/Trauma or Illness?:Illness/OtherHow long have you had these symptoms (acute/ch ronic)?:AcuteReason for exam?:pain/ reoccuring infectionHistory of cancer?:uSurgeries, chemotherapy, or radiation?:pacemakerType of Exam?:InitialAdditional signs and symptoms?:pain/infectionHEMOGLOBIN A1con 82-52-5928XLLSLJALXA A1c9.9 % of total HgbHigh<5.7Quest DiagnosticsComment on [...] of diabetes for children.Performed By: #### 496, [id number] #### [facility] [address], [address] [place] [address] [employer] Al[employer] Superintendent: Dean Maddox MDVITAMIN D,25-OH,TOTAL,IAon 91-91-8685OWDZHTX D,25-OH,TOTAL,IA11 ng/nUEdi63-048Lajzg DiagnosticsComment on above:Result Comment: Vitamin D Status 25-OH Vitamin D: Deficiency: <20 ng/mL Insufficiency: 20 - 29 ng/mL Optimal: > or = 30 ng/mL For 25-OH Vitamin D testing on patients on D2-supplementation and patients for whom quantitation of D2 and D3 fractions is required, the QuestAssureD(TM) 25-OH VIT D, (D2,D3), LC/MS/MS is recommended: order code 61453 (patients >2yrs). See Note 1 Note 1 For additional information, please refer to http://education.Calendargod.[employer]/faq/UGL606 (This link is being provided for informational/ educational purposes only.)Performed By: #### 496, [id number] #### [facility] [address], [address] [place] [address] [employer] Al[employer] Superintendent: Dean Maddox MDB12/FOLATEon 61-08-7153Pbnnletzu (Vitamin B12) [Mass/Vol]203 pg/dQCqh794-5421JdbkzdOaklawn Psychiatric CenterComment on above:Performed By: #### [id number] ####[facility] [address] [place] [address] Abbi Choudhary M.D. [id number] ng/mLNormal3.1-17.5[facility] Psychiatric CenterComment on above:Result Comment: Deficient <2.2Borderline 2.2 - 3.0Excessive >17.5 Performed By: #### [id number] ####[facility] [address] [place] [address] Abbi Choudhary M.D. [id number]/Folateon 14-66-7306Poyeehfxn (Vitamin B12) [Mass/Vol]203 pg/uXHed909 - 1245 pg/mLOhioHealthFolate [Mass/Vol]9.1 ng/mL3.1 - 17.5 ng/mLOhioHealthComment on above:Deficient <2.2 Borderline 2.2 - 3.0 Excessive >17.5 Interpretation and review of laboratory resultsAbnormalOhioHealthOhioHealth HEPATIC FUNCTION PANELon 08-72-8531Yuohbno [Mass/Vol]4.0 g/dLNormal3.2-5.2MDaviess Community HospitalComment on above:Performed By: #### [id number] ####[facility] [address] [place] [address] Abbi Choudhary M.D. [id number] [Catalytic activity/Vol]139 U/YOvyqil16-228TjldqxOaklawn Psychiatric CenterComment on above: Performed By: #### [id number] ####[facility] [address] [place], [place] [address] Abbi Choudhary M.D. [id number] [Catalytic activity/Vol]13 U/LNormal0-35 U/BHC [facility] HospitalComment on above:Performed By: #### [id number] ####[facility] [address] [place] [address] Abbi Choudhary M.D. [id number] [Catalytic activity/Vol]17 U/LNormal0-35 U/BHC [facility] HospitalComment on above:Result Comment: Slightly HemolyzedPerformed By: #### [id number] ####[facility] [address] [place], [place] [address] Abbi Choudhary M.D. [id number] [Mass/Vol]0.4 mg/dLNormal0.0-1.3Mohiohealth southeastern medical centern [facility] HospitalComment on above:Performed By: #### [id number] ####[facility] [address] [place] [address] Abbi Choudhary M.D. [id number], DIRECT<Normal0.0-0.4[facility]iatric CenterComment on above:Performed By: #### [id number] ####[facility] [address] [place] [address] Abbi Choudhary M.D. [id number] [Mass/Vol]7.3 g/dLNormal6.0-8.0[facility] CenterComment on above:Performed By: #### [id number] ####[facility] [address] [place] [address] Abbi Choudhary M.D. [id number] function 1999 panelOrdered By: Shy Chou on 74-35-1658Uglugix [Mass/Vol]4.0 g/dL 3.2 - 5.2 g/dLOhioHealthALP [Catalytic activity/Vol]139 U/L40 - 150 U/L OhioHealthALT [Catalytic activity/Vol]13 U/L0-35 U/LOhioHealthAST [Catalytic activity/Vol]17 U/L0-35 U/LOhioHealthComment on above:Slightly Hemolyzed Bilirubin [Mass/Vol]0.4 mg/dL0.0 - 1.3 mg/dLOhioHealthBilirubin.conjugated [Mass/Vol]mg/dL0.0 - 0.4 mg/dLOhioHealthInterpretation and review of laboratory resultsNormalOhioHealthProtein [Mass/Vol]7.3 g/dL6.0 - 8.0 g/dLOhioHealth [facility] HospitalT4, [facility] 38-30-7231Bjqp T4 [Mass/Vol]0.9 ng/dLNormal0.7-1.7[facility] CenterComment on above:Performed By: #### [id number] ####[facility] [address] [place] [address] Abbi Choudhary M.D. [id number] WITH REFLEX FREE T4on [id number] Qn4.58 m[IU]/LHigh0.27-4.20[facility] Comment on above:Performed By: #### [id number] ####[facility] [address] [address] Abbi Choudhary M.D. [id number] 19-23-3929WWNE NRBC0.0 %Normal [facility] CenterComment on above:Performed By: #### [id number] ####[facility] [address] [address] Abbi Choudhary M.D. [id number] NRBC ABS COUNT0.00 K/mcLNormal0.00-0.00[facility] CenterComment on above: Performed By: #### [id number] ####[facility] [address] [address] Abbi Choudhary M.D. [id number] distribution width (RBC) [Ratio]12.9 % Kezqoj08.6-14.8[facility] CenterComment on above:Performed By: #### [id number] ####[facility] [address] [address]Alisia Choudhary M.D. [id number] (Bld) [Volume fraction]29.3 %Low36.0-46.0[facility] Psychiatric CenterComment on above:Performed By: #### [id number] ####[facility] [address] [address] Abbi Choudhary M.D. [id number] (Bld) [Mass/Vol]9.1 g/dLLow12.0-16.0O[facility] Psychiatric CenterComment on above:Performed By: #### [id number] ####[facility] [address] [address] Abbi Choudhary M.D. [id number] (RBC) [Entitic mass]30.2 wxQegzvj45.0-34.0[facility] Comment on above:Performed By: #### [id number] ####[facility] [address] [address] Abbi Choudahry M.D. [id number] (RBC) [Entitic vol]97.3 fLNormal 80.0-100.0[facility] Psych[facility] CenterComment on above:Performed By: #### [id number] ####[facility] [address] [address] Abbi Choudhary M.D. 36D0 [id number] CORPUSCULAR HEMOGLOBIN CONC31.1 g/dIVvoayc88.0-37.0[facility] CenterComment on above:Performed By: #### [id number] ####[facility] [address] [address] Abbi Choudhary M.D. [id number] mean volume (Bld) [Entitic vol]9.1 fLLow9.4-12.4[facility] Psych[facility] CenterComment on above:Performed By: #### [id number] ####[facility] [address] [address] Abbi Choudhary M.D. [id number] (Bld) [#/Vol]255 10*3/yMEmoflv544-918IuoaciOaklawn Psychiatric CenterComment on above:Performed By: #### [id number] ####[facility] [address] [address] Abbi Choudhary M.D. [id number] (Bld) [#/Vol]3.01 10*6/uL Low4.00-5.20[facility] Psych[facility] CenterComment on above:Performed By: #### 67719 ####[facility] [address] [address] Abbi Choudhary M.D. 36D0 [id number] (Bld) [#/Vol]7.67 10*3/uLNormal4.50-11.00[facility] Comment on above:Performed By: #### [id number] ####[facility] [address] [address] Abbi Choudhary M.D. [id number] panel Auto (Bld)on 01-18-2024 Erythrocyte distribution width (RBC) [Entitic vol]12.9 %11.6 - 14.8 %[facility] Hematocrit (Bld) [Volume fraction]29.3 %Low36.0 - [...] 10*3/uLOhioHealthRBC (Bld) [#/Vol]3.01 10*6/uLLowOhioHealthWBC (Bld) [#/Vol]7.67 10*3/uLOhioHealthOhioHealthDisch [facility] 26-62-8526NoiumAultman HospitalGlucose (Bld) [Mass/Vol]on 42-39-2599Idigeoz [Mass/Vol]82 mg/dL65 - 99 mg/dLOhioHealthInterpretation and review of laboratory results NormalOhioHealthOhioHealthGlucose [Mass/Vol]71 mg/dL65 - 99 mg/dLOhioHealth Interpretation and review of laboratory resultsNormalOhioHealthOhioHealthGlucose [Mass/Vol]66 mg/dL65 - 99 mg/dLOhioHealthInterpretation and review of laboratory resultsNormalORegency Hospital [facility] GLUCOSE [facility] 01-18-2024 Glucose [Mass/Vol]82 mg/vCAwuywv28-59QsgsfuDaviess Community HospitalComment on above: Performed By: #### [id number] ####[facility] [address] [place], [place] [address] Abbi Choudhary M.D. [id number] [Mass/Vol]71 mg/kUQsxyid93-25Behwo[address] [place], [place] [address]Comment on above:Performed By: #### [id number] ####[facility] [address] [place], [place] [address] Abbi Choudhary M.D. [id number] [Mass/Vol]66 mg/dL Oifxwm63-00FebxhpDaviess Community HospitalComment on above:Performed By: #### [id number] ####[facility] [address] [place], [place] [address] Abbi Choudhary M.D. 36D0 [id number] FUNCTION PANELon 85-10-7514Lpblwqt [Mass/Vol]3.2 g/dLNormal3.2-5.2 [facility] CenterComment on above:Order Comment: [facility] has implemented the eGFR calculation approach that does not have a coefficient for race that conforms to the NKF-ASN Task Force Recommendations. Performed By: #### [id number] ####[facility] [address] [place], [place] [address] Abbi Choudhary M.D. [id number] gap [Moles/Vol]12 mmol/GNwpsmt26-68HjdkmdOaklawn Psychiatric CenterComment on above:Order Comment: [facility] has implemented the eGFR calculation approach that does not have a coefficient for race that conforms to the NKF-ASN Task Force Recommendations.Performed By: #### [id number] ####[facility] [address] [place], [place] [address] Abbi Choudhary M.D. [id number] [Mass/Vol]8.6 mg/dLNormal8.4-10.2MDaviess Community Hospital Comment on above:Order Comment: [facility] has implemented the eGFR calculation approach that does not have a coefficient for race that conforms to the NKF-ASN Task Force Recommendations.Performed By: #### 90569 ####[facility] [address] [place], [place] [address] Abbi Choudhary M.D. 36D0 [id number] [Moles/Vol]112 mmol/ERxmk39-049VeqjbfParkview Noble Hospital on above:Order Comment: [facility] has implemented the eGFR calculation approach that does not have a coefficient for race that conforms to the NKF-ASN Task Force Recommendations.Performed By: #### [id number] ####[facility] [address] [address] Abbi Choudhary M.D. [id number] [Mass/Vol]1.67 mg/dLHigh0.40-1.10[facility] on above:Order Comment: [facility] has implemented the eGFR calculation approach that does not have a coefficient for race that conforms to the NKF-ASN Task Force Recommendations.Performed By: #### 73330 ####[facility] [address] [place], [place] [address] Abbi Choudhary M.D. [id number] mL/min/1.73 m2Low >=60[facility] on above:Order Comment: [facility] has implemented the eGFR calculation approach that does not have a coefficient for race that conforms to the NKF-ASN Task Force Recommendations. Result Comment: Estimated GFR was calculated using the 2020 CKD-EPI creatinine equation.Performed By: #### [id number] ####[facility] [address] [place], [place] [address] Abbi Choudhary M.D. [id number] [Mass/Vol]78 mg/rUOckmdg56-45PhupbiSt. Mary's [facility] on above:Order Comment: [facility] has implemented the eGFR calculation approach that does not have a coefficient for race that conforms to the NKF-ASN Task Force Recommendations.Performed By: #### [id number] ####[facility] [address] [place], [place] [address] Abbi Choudhary M.D. [id number] (Bld) [Moles/Vol]24 mmol/SUaiwxs79-97VaulykOaklawn Psychiatric Center Comment on above:Order Comment: [facility] has implemented the eGFR calculation approach that does not have a coefficient for race that conforms to the NKF-ASN Task Force Recommendations.Performed By: #### [id number] ####[facility] [address] [address] Abbi Choudhary M.D. 36D0 [id number] [Mass/Vol]3.9 mg/dLNormal2.7-4.5[facility] on above:Order Comment: [facility] has implemented the eGFR calculation approach that does not have a coefficient for race that conforms to the NKF-ASN Task Force Recommendations.Performed By: #### [id number] ####[facility] [address] [place] [address] Abbi Choudhary M.D. [id number] [Moles/Vol]4.6 mmol/LNormal3.5-5.1MDaviess Community HospitalComment on above:Order Comment: [facility] has implemented the eGFR calculation approach that does not have a coefficient for race that conforms to the NKF-ASN Task Force Recommendations.Performed By: #### 95138 ####[facility] [address] [place] [address] Abbi Choudhary M.D. [id number] [Moles/Vol]143 mmol/UUaqkhl481-734IsollqOaklawn Psychiatric CenterComsheridan community hospital on above:Order Comment: [facility] has implemented the eGFR calculation approach that does not have a coefficient for race that conforms to the NKF-ASN Task Force Recommendations.Performed By: #### 72046 ####[facility] [address] [address] Abbi Choudhary M.D. [id number] nitrogen [Mass/Vol]34 mg/dLHigh8-25[facility] on above:Order Comment: [facility] has implemented the eGFR calculation approach that does not have a coefficient for race that conforms to the NKF-ASN Task Force Recommendations.Performed By: #### [id number] ####[facility] [address] [place], [place] [address] Abbi Choudhary M.D. [id number] nitrogen/Creatinine [Mass ratio]20.4 mg/nvLpep89.0-20.0[facility] Psych[facility] CenterComment on above:Order Comment: [facility] has implemented the eGFR calculation approach that does not have a coefficient for race that conforms to the NKF-ASN Task Force Recommendations.Performed By: #### [id number] ####[facility] [address] [place], [place] [address] Abbi Choudhary M.D. [id number] function 2000 panel on 59-88-3297Xsuspow [Mass/Vol]3.2 g/dL3.2 - 5.2 g/dLOhioHealthAnion gap [Moles/Vol]12 [...] - 25 mg/dLOhioHealth Urea nitrogen/Creatinine [Mass ratio]20.4 mg/tgBmqh87.0 - 20.0[facility] has implemented the eGFR calculation approach that does not have a coefficient for race that conforms to the NKF-ASN Task Force Recommendations.[facility] HospitalOhioHealthUS Kidney - bilateral and Urinary bladderon 01-18-2024 1. Normal renal ultrasound. [employer] Workstation ID: [id number] RISEXAMINATION: US RENAL AND [...] 80 mL IMPRESSION: 1. Normal renal ultrasound. [employer] Workstation ID: [id number] [facility] HospitalUS Kid[facility] - bilateral and Urinary bladderOrdered By: Anant Bonds on 37-84-1148GbqwKcmhxs Work Phone: CBFormerly [facility], [facility] 09-86-6614PWOA NRBC0.0 %[facility] Memorial HospitalComment on above:Performed By: #### [id number] ####[facility] [address] [address] Abbi Choudhary M.D. [id number] NRBC ABS COUNT0.00 K/mcL Normal0.00-0.00[facility] Psych[facility] CenterComment on above:Performed By: #### [id number] ####[facility] [address] [address] Abbi Choudhary M.D. 36D0 [id number] distribution width (RBC) [Ratio]13.1 %Fvgskc27.6-14.8[facility] HospitalComment on above:Performed By: #### [id number] ####[facility] [address] [address] Abbi Choudhary M.D. [id number] (Bld) [Volume fraction]28.9 %Low36.0-46.0[facility] HospitalComment on above: Performed By: #### 01994 ####[facility] [address] [address] Abbi Choudhary M.D. [id number] (Bld) [Mass/Vol]9.3 g/dLLow12.0-16.0[facility] CenterComment on above:Performed By: #### 38851 ####[facility] [address] [address] Abbi Choudhary M.D. [id number] (RBC) [Entitic mass]30.9 vzMeudrv20.0-34.0[facility] CenterComment on above: Performed By: #### [id number] ####[facility] [address] [address] Abbi Choudhary M.D. [id number] (RBC) [Entitic vol]96.0 tYBpkxyo91.0-100.0[facility] CenterComment on above:Performed By: #### 63487 ####[facility] [address] [address] Abbi Choudhary M.D. [id number] CORPUSCULAR HEMOGLOBIN CONC32.2 g/lQXcvmvh02.0-37.0[facility] CenterComment on above: Performed By: #### [id number] ####[facility] [address] [address] Abbi Choudhary M.D. [id number] mean volume (Bld) [Entitic vol]9.9 fLNormal 9.4-12.4[facility] CenterComment on above:Performed By: #### 66731 ####[facility] [address] [address] Abbi Choudhary M.D. [id number] Platelets (Bld) [#/Vol]259 10*3/wFTqjkcc186-313YikhglOaklawn Psychiatric CenterComment on above:Performed By: #### 99087 ####[facility] [address] [address] Abbi Choudhary M.D. [id number] (Bld) [#/Vol]3.01 10*6/uLLow4.00-5.20 [facility] CenterComsheridan community hospital on above:Performed By: #### [id number] ####[facility] [address] [address] Abbi Choudhary M.D. [id number] (Bld) [#/Vol]7.74 10*3/uLNormal4.50-11.00[facility] CenterComsheridan community hospital on above: Performed By: #### [id number] ####[facility] [address] [address] Abbi Choudhary M.D. [id number] panel Auto (Bld)on 11-89-0404Hyopowbhmfd distribution width (RBC) [Entitic vol]13.1 %11.6 - [...] [#/Vol] 7.74 10*3/uLOhioHealthOhioHealthCT HEAD WITHOUT CONTRAST (STROKE)on 95-77-4663UM HEAD WITHOUT CONTRAST (STROKE)[facility] HospitalComment on above: Order Comment: Injury/Trauma [...] or acute intracranial process. Workstation ID: [id number] [facility] HospitalRadiology Study observation (narrative)OhioHealthCT Head WO contrast Ordered By: Elvis Mae on 52-18-0192AjybXfmbbm Work Phone: Glucose (Bld) [Mass/Vol]on 63-08-6143Squdvhg [Mass/Vol]87 mg/dL65 - 99 mg/dLOhioHealthInterpretation and review of laboratory resultsNormalOhioHealthOhioHealthGlucose [Mass/Vol]255 mg/rDPbpl14 - 99 mg/dL OhioHealthInterpretation and review of laboratory resultsAbnormalOhioHealth OhioHealthGlucose [Mass/Vol]93 mg/dL65 - 99 mg/dLOhioHealthInterpretation and review of laboratory resultsNormalOhioHealthOhioHealthGlucose [Mass/Vol]58 mg/dL Low65 - 99 mg/dLOhioHealthInterpretation and review of laboratory results AbnormalOhioHealthOhioHealthGlucose [Mass/Vol]86 mg/dL65 - 99 mg/dLOhioHealth Interpretation and review of laboratory resultsNormalOhioHealthNvioHealthPOC GLUCOSE - RALSon 17-07-4943Lnwuonn [Mass/Vol]87 mg/nLTjlauz46-15Dsogzx General HospitalComment on above:Performed By: #### [id number] ####[facility] [address] [address] Abbi Choudhary M.D. [id number] [Mass/Vol]255 mg/dL Rkgv29-38Yodusz [facility] HospitalComment on above:Performed By: #### 55797 ####[facility] [address] [place], [place] [address] Abbi Choudhary M.D. 36D0 159978Dhowyqp [Mass/Vol]93 mg/oAMsychw17-87Yfgyba [facility] HospitalComment on above:Performed By: #### 68356 ####[facility] [address] [address] Abbi Choudhary M.D. [id number] [Mass/Vol]58 mg/fQDkb99-18Jfshgx General HospitalComment on above:Performed By: #### 70627 ####[facility] [address] [place], [place] [address] Abbi Choudhary M.D. [id number] [Mass/Vol]86 mg/aDMbndwi48-25WkbuprDaviess Community HospitalComment on above:Performed By: #### 27049 ####[facility] [address] [place], [place] [address] Abbi Choudhary M.D. 36D0 [id number] FUNCTION PANELon 00-34-3269Ujneffx [Mass/Vol]3.2 g/dLNormal3.2-5.2 [facility] CenterComment on above:Order Comment: [facility] has implemented the eGFR calculation approach that does not have a coefficient for race that conforms to the NKF-ASN Task Force Recommendations. Performed By: #### [id number] ####[facility] [address] [address] Abbi Choudhary M.D. [id number] gap [Moles/Vol]12 mmol/DZeuijf88-86WsowjkOaklawn Psychiatric CenterComsheridan community hospital on above:Order Comment: [facility] has implemented the eGFR calculation approach that does not have a coefficient for race that conforms to the NKF-ASN Task Force Recommendations.Performed By: #### [id number] ####[facility] [address] [address] Abbi Choudhary M.D. [id number] [Mass/Vol]8.6 mg/dLNormal8.4-10.2MDaviess Community Hospital Comment on above:Order Comment: [facility] has implemented the eGFR calculation approach that does not have a coefficient for race that conforms to the NKF-ASN Task Force Recommendations.Performed By: #### [id number] ####[facility] [address] [place], [place] [address] Abbi Choudhary M.D. 36D0 [id number] [Moles/Vol]113 mmol/DZhoe71-002JsgiviParkview Noble Hospital on above:Order Comment: [facility] has implemented the eGFR calculation approach that does not have a coefficient for race that conforms to the NKF-ASN Task Force Recommendations.Performed By: #### [id number] ####[facility] [address] [address] Abbi Choudhary M.D. [id number] [Mass/Vol]1.69 mg/dLHigh0.40-1.10[facility] CenterComment on above:Order Comment: [facility] has implemented the eGFR calculation approach that does not have a coefficient for race that conforms to the NKF-ASN Task Force Recommendations.Performed By: #### 72696 ####[facility] [address] [address] Abbi Choudhary M.D. [id number] mL/min/1.73 m2Low >=60[facility] CenterComment on above:Order Comment: [facility] has implemented the eGFR calculation approach that does not have a coefficient for race that conforms to the NKF-ASN Task Force Recommendations. Result Comment: Estimated GFR was calculated using the 2020 CKD-EPI creatinine equation.Performed By: #### [id number] ####[facility] [address] [place] [address] Abbi Choudhary M.D. [id number] [Mass/Vol]127 mg/vPKltk71-45SpwuwyDaviess Community HospitalComsheridan community hospital on above:Order Comment: [facility] has implemented the eGFR calculation approach that does not have a coefficient for race that conforms to the NKF-ASN Task Force Recommendations.Performed By: #### [id number] ####[facility] [address] [address] Abbi Choudhary M.D. [id number] (Bld) [Moles/Vol]23 mmol/ERcereo20-09LulxraOaklawn Psychiatric Center Comment on above:Order Comment: [facility] has implemented the eGFR calculation approach that does not have a coefficient for race that conforms to the NKF-ASN Task Force Recommendations.Performed By: #### [id number] ####[facility] [address] [place], [place] [address] Abbi Choudhary M.D. 36D0 [id number] [Mass/Vol]3.7 mg/dLNormal2.7-4.5[facility] CenterComsheridan community hospital on above:Order Comment: [facility] has implemented the eGFR calculation approach that does not have a coefficient for race that conforms to the NKF-ASN Task Force Recommendations.Performed By: #### 81115 ####[facility] [address] [address] Abbi Choudhary M.D. [id number] [Moles/Vol]4.8 mmol/LNormal3.5-5.1MSt. Mary's [facility]rick Hospital on above:Order Comment: [facility] has implemented the eGFR calculation approach that does not have a coefficient for race that conforms to the NKF-ASN Task Force Recommendations.Result Comment: Slightly HemolyzedPerformed By: #### 81606 ####[facility] [address] [address] Abbi Choudhary M.D. [id number] [Moles/Vol]143 mmol/IFyibhl623-923IcijlqOaklawn Psychiatric Center Comment on above:Order Comment: [facility] has implemented the eGFR calculation approach that does not have a coefficient for race that conforms to the NKF-ASN Task Force Recommendations.Performed By: #### 08559 ####[facility] [address] [address] Abbi Choudhary M.D. 36D0 [id number] nitrogen [Mass/Vol]30 mg/dLHigh8-25[facility] on above:Order Comment: [facility] has implemented the eGFR calculation approach that does not have a coefficient for race that conforms to the NKF-ASN Task Force Recommendations.Performed By: #### 74072 ####[facility] [address] [place], [place] [address] Abbi Choudhary M.D. [id number] nitrogen/Creatinine [Mass ratio]17.8 mg/sxSewmmh19.0-20.0[facility] Comment on above:Order Comment: [facility] has implemented the eGFR calculation approach that does not have a coefficient for race that conforms to the NKF-ASN Task Force Recommendations.Performed By: #### 56447 ####[facility] [address] [place], [place] [address] Abbi Choudhary M.D. 36D0 [id number] function 1999 panelOrdered By: Janelle Juarez on 08-20-0115Xcuazmg [Mass/Vol]3.2 g/dL3.2 - 5.2 g/dLOhioHealthAnion gap [Moles/Vol]12 mmol/L10 - 20 mmol/LOhioHealthCalcium [Mass/Vol]8.6 mg/dL8.4 - 10.2 mg/dLOhioHealthChloride [Moles/Vol]113 mmol/LHigh98 - 108 mmol/LOhioHealthCreatinine [Mass/Vol]1.69 mg/dLHigh0.40 - 1.10 mg/dLOhioHealthGFR/1.73 sq M.predicted CKD-EPI (S/P/Bld) [Vol rate/Area]38Low- PINFOhioHealthComment on above:Estimated GFR was calculated using the 2020 CKD-EPI creatinine equation.Glucose [Mass/Vol]127 mg/dXVjvq75 - 99 mg/dLOhioHealthHCO3 [Moles/Vol]23 mmol/L21 - 32 mmol/L CaliforniaHealthInterpretation and review of laboratory resultsAbnormalOhioHealth Phosphate [Mass/Vol]3.7 mg/dL2.7 - 4.5 mg/dLOhioHealthPotassium [Moles/Vol]4.8 mmol/L3.5 - 5.1 mmol/LOhioHealthComment on above:Slightly HemolyzedSodium [Moles/Vol]143 mmol/L135 - 145 mmol/LOhioHealthUrea nitrogen [Mass/Vol]30 mg/dL High8 - 25 mg/dLOhioHealthUrea nitrogen/Creatinine [Mass ratio]17.8 mg/mg10.0 - 20.0[facility] HospitalioOhio [facility] Surgical [facility] has implemented the eGFR calculation approach that does not have a coefficient for race that conforms to the NKF-ASN Task Force Recommendations.CaliforniaHealthOhioHealthCBCon 96-70-2861DEVU NRBC0.0 %NormalOaklawn Psychiatric CenterComment on above:Performed By: #### [id number] ####[facility] [address] [address] Abbi Choudhary M.D. 36D0 [id number] NRBC ABS COUNT0.00 K/mcLNormal0.00-0.00[facility] CenterComment on above:Performed By: #### [id number] #### [facility] [address] [place] [address] Abbi Choudhary M.D. [id number] distribution width (RBC) [Ratio] 13.1 %Qsedae14.6-14.8[facility] Psychiatric CenterComment on above:Performed By: #### [id number] ####[facility] [address] [address] Abbi Choudhary M.D. [id number] (Bld) [Volume fraction]30.1 %Low36.0-46.0[facility]iatric CenterComment on above:Performed By: #### [id number] ####[facility] [address] [address] Abbi Choudhary M.D. [id number] (Bld) [Mass/Vol]9.4 g/dLLow12.0-16.0[facility] CenterComment on above:Performed By: #### 54483 #### [facility] [address] [place] [address] Abbi Choudhary M.D. [id number] (RBC) [Entitic mass]30.1 obNyayfe42.0-34.0[facility] Comment on above:Performed By: #### 94427 ####[facility] [address] [place] [address] Abbi Choudhary M.D. [id number] (RBC) [Entitic vol]96.5 fLNormal 80.0-100.0[facility] CenterComment on above:Performed By: #### 11314 ####[facility] [address] [place] [address] Abbi Choudhary M.D. 36D0 [id number] CORPUSCULAR HEMOGLOBIN CONC31.2 g/uHAxptze72.0-37.0[facility] CenterComment on above:Performed By: #### 31025 ####[facility] [address] [place] [address] Abbi Choudhary M.D. [id number] mean volume (Bld) [Entitic vol]9.1 fLLow9.4-12.4[facility] CenterComment on above:Performed By: #### [id number] ####[facility] [address] [address] Abbi Choudhary M.D. [id number] (Bld) [#/Vol]285 10*3/gSSnhgrb636-216HbrpecOaklawn Psychiatric CenterComment on above:Performed By: #### 38871 ####[facility] [address] [address] Abbi Choudhary M.D. [id number] (Bld) [#/Vol]3.12 10*6/uL Low4.00-5.20[facility]iatric CenterComment on above:Performed By: #### 22821 ####[facility] [address] [address] Abbi Choudhary M.D. 36D0 [id number] (Bld) [#/Vol]8.82 10*3/uLNormal4.50-11.00[facility] Comment on above:Performed By: #### [id number] ####[facility] [address] [address] Abbi Choudhary M.D. [id number] panel Auto (Bld)on 01-16-2024 Erythrocyte distribution width (RBC) [Entitic vol]13.1 %11.6 - 14.8 %[facility] Hematocrit (Bld) [Volume fraction]30.1 %Low36.0 - 46.0 %OhioOhio [facility] Surgical HospitalHemoglobin (Bld) [Mass/Vol]9.4 g/dLLow12.0 - 16.0 g/dLOhioHealthInterpretation and review of laboratory resultsAbnormalOhioHealthMCH (RBC) [Entitic mass]30.1 pg26.0 - 34.0 pgOhioHealthMCHC (RBC) [Mass/Vol]31.2 g/dL31.0 - 37.0 g/dLOhioHealthMCV (RBC) [Entitic vol]96.5 fL80.0 - 100.0 fLOhioHealthNucleated RBC (Bld) [#/Vol] 0.00 10*3/uLOhioHealthNucleated RBC/100 WBC (Bld) [Ratio]0.0 %OhioHealthPlatelet mean volume (Bld) [Entitic vol]9.1 fLLow9.4 - 12.4 fLOhioHealthPlatelets (Bld) [#/Vol]285 10*3/uLOhioHealthRBC (Bld) [#/Vol]3.12 10*6/uLLowOhioHealthWBC (Bld) [#/Vol]8.82 10*3/uLOhioHealthOhioHealthCONSULTon 75-38-0206YBFJJNZEdbpqpNlyppw General HospitalGlucose (Bld) [Mass/Vol]on 33-21-8444Mzwneps [Mass/Vol]211 mg/dL High65 - 99 mg/dLOhioHealthInterpretation and review of laboratory results AbnormalOhioHealthOhioHealthGlucose [Mass/Vol]106 mg/vUUlgm46 - 99 mg/dL OhioHealthInterpretation and review of laboratory resultsAbnormalOhioHealth OhioHealthGlucose [Mass/Vol]222 mg/cKIlqc51 - 99 mg/dLOhioHealthInterpretation and review of laboratory resultsAbnormalOhioHealThe Surgical Hospital at SouthwoodsioHealthGlucose [Mass/Vol]69 mg/dL65 - 99 mg/dLOhioHealthInterpretation and review of laboratory results NormalOhioHealthOhioHealthPOC GLUCOSE - [facility]ALSon 59-88-7194Edadbqg [Mass/Vol]211 mg/yDDtgn96-55Vrutax [facility] HospitalComment on above:Performed By: #### [id number] ####[facility] [address] [place], [place] [address] Abbi Choudhary M.D. 36D0 [id number] [Mass/Vol]106 mg/nGWkss40-73Rtxkkg [facility] HospitalComment on above:Performed By: #### [id number] ####[facility] [address] [place], [place] [address] Abbi Choudhary M.D. [id number] [Mass/Vol]222 mg/lKUkyw63-05Rvneoo [facility] HospitalComment on above:Performed By: #### [id number] ####[facility] [address] [place], [place] [address] Abbi Choudhary M.D. [id number] [Mass/Vol]69 mg/jMYzlrds24-73QdqindSt. Mary's [facility] on above:Performed By: #### [id number] ####[facility] [address] [place], [place] [address] Abbi Choudhary M.D. [id number] FUNCTION PANELon 07-93-8379Xhsykbc [Mass/Vol]3.3 g/dL Normal3.2-5.2MSt. Mary's [facility]rick [facility] on above:Order Comment: [facility] Laboratory [facility] has implemented the eGFR calculation approach that does not have a coefficient for race that conforms to the NKF-ASN Task Force Recommendations.Performed By: #### [id number] ####[facility] [address] [place] [address] Abbi Choudhary M.D. [id number] gap [Moles/Vol]12 mmol/LNormal 10-20[facility] on above:Order Comment: [facility] Laboratory [facility] has implemented the eGFR calculation approach that does not have a coefficient for race that conforms to the NKF-ASN Task Force Recommendations.Performed By: #### [id number] ####[facility] [address] [place] [address] Abbi Choudhary M.D. [id number] [Mass/Vol]8.8 mg/dLNormal 8.4-10.2MSt. Mary's [facility]rick Hospital on above:Order Comment: [facility] Laboratory [facility] has implemented the eGFR calculation approach that does not have a coefficient for race that conforms to the NKF-ASN Task Force Recommendations.Performed By: #### [id number] ####[facility] [address] [place], [place] [address] Abbi Choudhary M.D. [id number] [Moles/Vol]111 mmol/LHigh 98-108[facility] on above:Order Comment: [facility] Laboratory [facility] has implemented the eGFR calculation approach that does not have a coefficient for race that conforms to the NKF-ASN Task Force Recommendations.Performed By: #### [id number] ####[facility] [address] [place], [place] [address] Abbi Choudhary M.D. [id number] [Mass/Vol]1.63 mg/dLHigh 0.40-1.10[facility] on above:Order Comment: [facility] Laboratory [facility] has implemented the eGFR calculation approach that does not have a coefficient for race that conforms to the NKF-ASN Task Force Recommendations.Performed By: #### [id number] ####[facility] [address] [place] [address] Abbi Choudhary M.D. [id number] mL/min/1.73 m2Low>=60[facility] on above:Order Comment: [facility] Laboratory [facility] has implemented the eGFR calculation approach that does not have a coefficient for race that conforms to the NKF-ASN Task Force Recommendations.Result Comment: Estimated GFR was calculated using the 2020 CKD-EPI creatinine equation. Performed By: #### [id number] ####[facility] [address] [place] [address] Abbi Choudhary M.D. [id number] [Mass/Vol]103 mg/cBNset18-73IpzkskSt. Mary's [facility]rick Hospital on above:Order Comment: [facility] Laboratory [facility] has implemented the eGFR calculation approach that does not have a coefficient for race that conforms to the NKF-ASN Task Force Recommendations.Performed By: #### [id number] ####[facility] [address] [place] [address] Abbi Choudhary M.D. [id number] (Bld) [Moles/Vol]25 mmol/DMxtpsi59-00SxsoktOaklawn Psychiatric Center Comment on above:Order Comment: [facility] Laboratory [facility] has implemented the eGFR calculation approach that does not have a coefficient for race that conforms to the NKF-ASN Task Force Recommendations.Performed By: #### [id number] ####[facility] [address] [place], [place] [address] Abbi Choudhary M.D. 36D0 870473Nevkqeprr [Mass/Vol]4.1 mg/dLNormal2.7-4.5[facility] on above:Order Comment: [facility] Laboratory [facility] has implemented the eGFR calculation approach that does not have a coefficient for race that conforms to the NKF-ASN Task Force Recommendations.Performed By: #### [id number] ####[facility] [address] [place] [address] Abbi Choudhary M.D. [id number] [Moles/Vol]4.5 mmol/LNormal3.5-5.1MSt. Mary's [facility] on above:Order Comment: [facility] has implemented the eGFR calculation approach that does not have a coefficient for race that conforms to the NKF-ASN Task Force Recommendations.Performed By: #### [id number] ####[facility] [address] [place] [address] Abbi Choudhary M.D. [id number] [Moles/Vol]143 mmol/FTaxhdm639-229UnwnzpParkview Noble Hospital on above:Order Comment: [facility] has implemented the eGFR calculation approach that does not have a coefficient for race that conforms to the NKF-ASN Task Force Recommendations.Performed By: #### [id number] ####[facility] [address] [place] [address] Abbi Choudhary M.D. [id number] nitrogen [Mass/Vol]27 mg/dLHigh8-25[facility] on above:Order Comment: [facility] has implemented the eGFR calculation approach that does not have a coefficient for race that conforms to the NKF-ASN Task Force Recommendations.Performed By: #### [id number] ####[facility] [address] [place] [address] Abbi Choudhary M.D. [id number] nitrogen/Creatinine [Mass ratio]16.6 mg/ptEhgatz53.0-20.0[facility] on above:Order Comment: [facility] has implemented the eGFR calculation approach that does not have a coefficient for race that conforms to the NKF-ASN Task Force Recommendations.Performed By: #### [id number] ####[facility] [address] [place] [address] Abbi Choudhary M.D. [id number] function 2000 panel on 61-23-3115Ratzzfj [Mass/Vol]3.3 g/dL3.2 - 5.2 g/dLOhioHealthAnion gap [Moles/Vol]12 mmol/L10 - 20 mmol/LOhioHealthCalcium [Mass/Vol]8.8 mg/dL8.4 - 10.2 mg/dLOhioHealthChloride [Moles/Vol]111 mmol/LHigh98 - 108 mmol/LOhioHealth Creatinine [Mass/Vol]1.63 mg/dLHigh0.40 - 1.10 mg/dLOhioHealthGFR/1.73 sq M.predicted CKD-EPI (S/P/Bld) [Vol rate/Area]39Low- PINFOhioHealthComment on above:Estimated GFR was calculated using the 2020 CKD-EPI creatinine equation. Glucose [Mass/Vol]103 mg/uMNhib99 - 99 mg/dLOhioHealthHCO3 [Moles/Vol]25 mmol/L 21 - 32 mmol/LOhioHealthInterpretation and review of laboratory resultsAbnormal OhioHealthPhosphate [Mass/Vol]4.1 mg/dL2.7 - 4.5 mg/dLOhioHealthPotassium [Moles/Vol]4.5 mmol/L3.5 - 5.1 mmol/LOhioHealthSodium [Moles/Vol]143 mmol/L135 - 145 mmol/LOhioHealthUrea nitrogen [Mass/Vol]27 mg/dLHigh8 - 25 mg/dLOhioHealth Urea nitrogen/Creatinine [Mass ratio]16.6 mg/mg10.0 - 20.0OhioWooster [facility]io[facility] has implemented the eGFR calculation approach that does not have a coefficient for race that conforms to the NKF-ASN Task Force Recommendations.CaliforniaHealthOhioHealthURINALYSISon 55-22-2204LJKQLGIN, URINERare AbnormalNone [facility] HospitalComment on above:Order Comment: Microscopic examination is performed on all urinalysis samples and only positive findings are reported. The test for blood on the chemical analytic portion of urinalysis may also be positive due to hemoglobinuria and myoglobinuria and if red blood cells are present they are quantified by microscopic examination. Performed By: #### [id number] ####[facility] [address] [place] [address] Abbi Choudhary M.D. [id number], URINENegativeNormalNegDeKalb Memorial HospitalComment on above:Order Comment: Microscopic examination is performed on all urinalysis samples and only positive findings are reported. The test for blood on the chemical analytic portion of urinalysis may also be positive due to hemoglobinuria and myoglobinuria and if red blood cells are present they are quantified by microscopic examination.Performed By: #### [id number] ####[facility] [address] [place] [address] Abbi Choudhary M.D. [id number], URINE NegativeNormalNegativeOaklawn Psychiatric CenterComment on above:Order Comment: Microscopic examination is performed on all urinalysis samples and only positive findings are reported. The test for blood on the chemical analytic portion of urinalysis may also be positive due to hemoglobinuria and myoglobinuria and if red blood cells are present they are quantified by microscopic examination. Performed By: #### [id number] ####[facility] [address] [place] [address] Abbi Choudhary M.D. [id number] (U)ClearNormalCDeaconess Cross Pointe Center Comment on above:Order Comment: Microscopic examination is performed on all urinalysis samples and only positive findings are reported. The test for blood on the chemical analytic portion of urinalysis may also be positive due to hemoglobinuria and myoglobinuria and if red blood cells are present they are quantified by microscopic examination.Performed By: #### [id number] ####[facility] [address] [place] [address] Abbi Choudhary M.D. [id number] (U)Yellow NormalColorless, [facility] Terre HauteComment on above:Order Comment: Microscopic examination is performed on all urinalysis samples and only positive findings are reported. The test for blood on the chemical analytic portion of urinalysis may also be positive due to hemoglobinuria and myoglobinuria and if red blood cells are present they are quantified by microscopic examination. Performed By: #### 72089 ####[facility] [address] [place] [address] Abbi Choudhary M.D. [id number] Ql (U)50 mg/dLAbnormalNegDeaconess Gateway and [facility]'s [facility] on above:Order Comment: Microscopic examination is performed on all urinalysis samples and only positive findings are reported. The test for blood on the chemical analytic portion of urinalysis may also be positive due to hemoglobinuria and myoglobinuria and if red blood cells are present they are quantified by microscopic examination.Performed By: #### 70571 ####[facility] [address] [place] [address] Abbi Choudhary M.D. [id number] casts LM Ql (Urine sed)7-2Vodoxqzb4-6PdjmdeSt. Mary's [facility] Hospital on above:Order Comment: Microscopic examination is performed on all urinalysis samples and only positive findings are reported. The test for blood on the chemical analytic portion of urinalysis may also be positive due to hemoglobinuria and myoglobinuria and if red blood cells are present they are quantified by microscopic examination.Performed By: #### 51504 ####[facility] [address] [place] [address] Abbi Choudhary M.D. [id number] Ql (U)NegativeNormal NegativeOaklawn Psychiatric CenterComsheridan community hospital on above:Order Comment: Microscopic examination is performed on all urinalysis samples and only positive findings are reported. The test for blood on the chemical analytic portion of urinalysis may also be positive due to hemoglobinuria and myoglobinuria and if red blood cells are present they are quantified by microscopic examination.Performed By: #### 75621 ####[facility] [address] [place] [address] Abbi Choudhary M.D. [id number] esterase Test strip Ql (U)NegativeNormalNegativeOaklawn Psychiatric CenterComsheridan community hospital on above:Order Comment: Microscopic examination is performed on all urinalysis samples and only positive findings are reported. The test for blood on the chemical analytic portion of urinalysis may also be pos itive due to hemoglobinuria and myoglobinuria and if red blood cells are present they are quantified by microscopic examination.Performed By: #### [id number] ####[facility] [address] [place], [place] [address] Abbi Choudhary M.D. [id number], URINERareNormalNone Seen, RareParkview Noble Hospital on above:Order Comment: Microscopic examination is performed on all urinalysis samples and only positive findings are reported. The test for blood on the chemical analytic portion of urinalysis may also be positive due to hemoglobinuria and myoglobinuria and if red blood cells are present they are quantified by microscopic examination.Performed By: #### [id number] ####[facility] [address] [place] [address] Abbi Choudhary M.D. [id number], URINENegativeNormal NegativeParkview Noble Hospital on above:Order Comment: Microscopic examination is performed on all urinalysis samples and only positive findings are reported. The test for blood on the chemical analytic portion of urinalysis may also be positive due to hemoglobinuria and myoglobinuria and if red blood cells are present they are quantified by microscopic examination.Performed By: #### [id number] ####[facility] [address] [place], [place] [address] Abbi Choudhary M.D. [id number] (U)5.0 [pH]Normal5.0-7.0[facility] on above:Order Comment: Microscopic examination is performed on all urinalysis samples and only positive findings are reported. The test for blood on the chemical analytic portion of urinalysis may also be positive due to hemoglobinuria and myoglobinuria and if red blood cells are present they are quantified by microscopic examination.Performed By: #### [id number] ####[facility] [address] [place], [place] [address] Abbi Choudhary M.D. [id number] (U) [Mass/Vol]100 mg/dLAbnormalNegDeaconess Gateway and [facility]'s Hospital on above:Order Comment: Microscopic examination is performed on all urinalysis samples and only positive findings are reported. The test for blood on the chemical analytic portion of urinalysis may also be positive due to hemoglobinuria and myoglobinuria and if red blood cells are present they are quantified by microscopic examination.Performed By: #### [id number] #### LAB [address] [place] [address] Abbi Choudhary M.D. [id number] LM.HPF (Urine sed) [#/Area]2 /[HPF]Normal0-3MSt. Mary's Warrick Hospital on above:Order Comment: Microscopic examination is performed on all urinalysis samples and only positive findings are reported. The test for blood on the chemical analytic portion of urinalysis may also be positive due to hemoglobinuria and myoglobinuria and if red blood cells are present they are quantified by microscopic examination. Performed By: #### [id number] ####[facility] [address] [place] [address] Abbi Choudhary M.D. [id number] gravity (U) [Rel density]1.013Normal 1.005-1.025[facility] on above:Order Comment: Microscopic examination is performed on all urinalysis samples and only positive findings are reported. The test for blood on the chemical analytic portion of urinalysis may also be positive due to hemoglobinuria and myoglobinuria and if red blood cells are present they are quantified by microscopic examination.Performed By: #### [id number] ####[facility] [address] [place] [address] Abbi Choudhary M.D. [id number] EPITHELIAL2 /hpfNormal0-4[facility] on above:Order Comment: Microscopic examination is performed on all urinalysis samples and only positive findings are reported. The test for blood on the chemical analytic portion of urinalysis may also be positive due to hemoglobinuria and myoglobinuria and if red blood cells are present they are quantified by microscopic examination.Performed By: #### 75120 ####[facility] [address] [place] [address] Abbi Choudhary M.D. [id number], URINE<2.0Normal<2.0[facility] on above:Order Comment: Microscopic examination is performed on all urinalysis samples and only positive findings are reported. The test for blood on the chemical analytic portion of urinalysis may also be positive due to hemoglobinuria and myoglobinuria and if red blood cells are present they are quantified by microscopic examination. Performed By: #### [id number] ####[facility] [address] [place], [place] [address] Abbi Choudhary M.D. [id number] LM.HPF (Urine sed) [#/Area]1 /[HPF]Normal0-5[facility] Psychiatric CenterComsheridan community hospital on above:Order Comment: Microscopic examination is performed on all urinalysis samples and only positive findings are reported. The test for blood on the chemical analytic portion of urinalysis may also be pos itive due to hemoglobinuria and myoglobinuria and if red blood cells are present they are quantified by microscopic examination.Performed By: #### [id number] #### LAB [address] [place], [place] [address] Abbi Choudhary M.D. [id number] Kidney - bilateral and Urinary bladderon 51-17-3029Lgqohcozn Study observation (narrative)[facility] RENAL AND BLADDERon 51-63-0205SO RENAL AND BLADDERNormal [facility] Psychiatric CenterComsheridan community hospital on above:Order Comment: Injury/Trauma or Illness?:Illness/OtherHow long have you had these symptoms (acute/ch ronic)?:AcuteReason for exam?:akiHistory of cancer?:uSurgeries, chemotherapy, or radiation?:pacemakerType of Exam?:InitialAdditional signs and symptoms?:none UrinalysisOrdered By: Caryn Schmitt on 32-09-9141Ddnkghto Auto Ql (U) RareAbnormalNone Seen /hpfOhioHealthBilirubin Ql [...] are present they are quantified by microscopic examination.[facility] HospitalioHealthCBCon 92-79-2015SZZJ NRBC0.0 %NormalOaklawn Psychiatric CenterComment on above:Performed By: #### [id number] ####[facility] [address] [place] [address] Abbi Choudhary M.D. 36D0 [id number] NRBC ABS COUNT0.00 K/mcLNormal0.00-0.00O[facility] Psychiatric CenterComment on above:Performed By: #### [id number] ####[facility] [address] [place] [address] Abbi Choudhary M.D. [id number] distribution width (RBC) [Ratio] 13.1 %Gnxctw19.6-14.8[facility]skenazi Hospitalment on above:Performed By: #### [id number] ####[facility] [address] [place], [place] [address] Abbi Choudhary M.D. [id number] (Bld) [Volume fraction]31.2 %Low36.0-46.0[facility] HospitalComment on above:Performed By: #### [id number] ####[facility] [address] [place] [address] Abbi Choudhary M.D. [id number] (Bld) [Mass/Vol]9.9 g/dLLow12.0-16.0[facility] HospitalComment on above:Performed By: #### [id number] ####[facility] [address] [place] [address] Abbi Choudhary M.D. [id number] (RBC) [Entitic mass]30.6 eyUiuoxz03.0-34.0[facility] Comment on above:Performed By: #### [id number] ####[facility] [address] [place] [address] Abbi Choudhary M.D. [id number] (RBC) [Entitic vol]96.3 fLNormal 80.0-100.0O[facility] Psychiatric CenterComment on above:Performed By: #### 97968 ####[facility] [address] [place] [address] Abbi Choudhary M.D. 36D0 [id number] CORPUSCULAR HEMOGLOBIN CONC31.7 g/gEXesqtw93.0-37.0O[facility] Psychiatric CenterComment on above:Performed By: #### 79766 ####[facility] [address] [place] [address] Abbi Choudhary M.D. [id number] mean volume (Bld) [Entitic vol]9.3 fLLow9.4-12.4O[facility] Psychiatric CenterComment on above:Performed By: #### 37838 ####[facility] [address] [place] [address] Abbi Choudhary M.D. [id number] (Bld) [#/Vol]266 10*3/qWKgepqb784-528JjsaljOaklawn Psychiatric CenterComment on above:Performed By: #### 63035 ####[facility] [address] [place] [address] Abbi Choudhary M.D. [id number] (Bld) [#/Vol]3.24 10*6/uL Low4.00-5.20O[facility] Psychiatric CenterComment on above:Performed By: #### 71126 ####[facility] [address] [place], [place] [address] Abbi Choudhary M.D. 36D0 [id number] (Bld) [#/Vol]7.12 10*3/uLNormal4.50-11.00[facility] Comment on above:Performed By: #### [id number] ####[facility] [address] [place], [place] [address] Abbi Choudhary M.D. [id number] panel Auto (Bld)on 01-15-2024 Erythrocyte distribution width [...] [#/Vol]7.12 10*3/uLOhioHealthOhioHealthGlucose (Bld) [Mass/Vol]on 01-15-2024 Glucose [Mass/Vol]233 mg/mHDcbv10 - 99 mg/dLOhioHealthInterpretation and review of laboratory resultsAbnormMartins Ferry HospitalHealthGlucose [Mass/Vol]103 mg/dLHigh 65 - 99 mg/dLOhioHealthInterpretation and review of laboratory resultsAbnormal [facility] HospitalioHealthGlucose [Mass/Vol]89 mg/dL65 - 99 mg/dLOhioHealth Interpretation and review of laboratory resultsNormalOAvita Health System Bu[facility] HospitalioHealthGlucose [Mass/Vol]104 mg/tOVdiw94 - 99 mg/dLOhioHealthInterpretation and review of laboratory resultsAbnoEast [facility] GLUCOSE [facility] 01-15-2024 Glucose [Mass/Vol]233 mg/eRBoye92-10Dgwhdl [facility] HospitalComment on above: Performed By: #### [id number] ####[facility] [address] [place] [address] Abbi Choudhary M.D. [id number] [Mass/Vol]103 mg/tVQgzn44-50Fezdwe [facility] HospitalComment on above:Performed By: #### 70948 ####[facility] [address] [place], [place] [address] Abbi Choudhary M.D. [id number] [Mass/Vol]89 mg/dL Wunnln74-19Mnixlz [facility] HospitalComment on above:Performed By: #### [id number] #### LAB [address] [place], [place] [address] Abbi Choudhary M.D. 36D0 [id number] [Mass/Vol]104 mg/nEPrvi35-86Ooghuc [facility] HospitalComment on above:Performed By: #### 15777 #### LAB [address] [place], [place] [address] Abbi Choudhary M.D. [id number] FUNCTION PANELon 40-91-1657Gxhfuwe [Mass/Vol]3.4 g/dLNormal3.2-5.2Marion [facility] HospitalComment on above:Order Comment: [facility] Services has implemented the eGFR calculation approach that does not have a coefficient for race that conforms to the NKF-ASN Task Force Recommendations.Performed By: #### 73665 ####[facility] [address] [place], [place] [address] Abbi Choudhary M.D. [id number] gap [Moles/Vol]13 mmol/NJsqrtx06-28KavylaParkview Noble Hospital on above:Order Comment: [facility] Laboratory [facility] has implemented the eGFR calculation approach that does not have a coefficient for race that conforms to the NKF-ASN Task Force Recommendations.Performed By: #### 71702 ####[facility] [address] [place] [address] Abbi Choudhary M.D. [id number] [Mass/Vol]8.7 mg/dL Normal8.4-10.2MSt. [facility]'s [facility] on above:Order Comment: [facility] Laboratory [facility] has implemented the eGFR calculation approach that does not have a coefficient for race that conforms to the NKF-ASN Task Force Recommendations.Performed By: #### [id number] ####[facility] [address] [place], [place] [address] Abbi Choudhary M.D. [id number] [Moles/Vol]109 mmol/LHigh 98-108[facility] on above:Order Comment: [facility] has implemented the eGFR calculation approach that does not have a coefficient for race that conforms to the NKF-ASN Task Force Recommendations.Performed By: #### [id number] ####[facility] [address] [place] [address] Abbi Choudhary M.D. [id number] [Mass/Vol]1.59 mg/dLHigh 0.40-1.10[facility] on above:Order Comment: [facility] has implemented the eGFR calculation approach that does not have a coefficient for race that conforms to the NKF-ASN Task Force Recommendations.Performed By: #### [id number] ####[facility] [address] [place], [place] [address] Abbi Choudhary M.D. [id number] mL/min/1.73 m2Low>=60[facility] on above:Order Comment: [facility] has implemented the eGFR calculation approach that does not have a coefficient for race that conforms to the NKF-ASN Task Force Recommendations.Result Comment: Estimated GFR was calculated using the 2020 CKD-EPI creatinine equation. Performed By: #### [id number] ####[facility] [address] [place] [address] Abbi Choudhary M.D. [id number] [Mass/Vol]102 mg/hMGqgm25-32OuxfqdSt. [facility] on above:Order Comment: [facility] has implemented the eGFR calculation approach that does not have a coefficient for race that conforms to the NKF-ASN Task Force Recommendations.Performed By: #### [id number] ####[facility] [address] [place] [address] Abbi Choudhary M.D. [id number] (Bld) [Moles/Vol]25 mmol/YMwizzb02-56UkkibmOaklawn Psychiatric Center Comment on above:Order Comment: [facility] has implemented the eGFR calculation approach that does not have a coefficient for race that conforms to the NKF-ASN Task Force Recommendations.Performed By: #### [id number] ####[facility] [address] [place] [address] Abbi Choudhary M.D. [id number] [id number] [Mass/Vol]4.8 mg/dLHigh2.7-4.5[facility] on above:Order Comment: [facility] has implemented the eGFR calculation approach that does not have a coefficient for race that conforms to the NKF-ASN Task Force Recommendations.Performed By: #### [id number] ####[facility] [address] [place] [address] Abbi Choudhary M.D. [id number] [Moles/Vol]4.2 mmol/LNormal3.5-5.1MSt. Mary's [facility] on above:Order Comment: [facility] has implemented the eGFR calculation approach that does not have a coefficient for race that conforms to the NKF-ASN Task Force Recommendations.Performed By: #### [id number] ####[facility] [address] [place], [place] [address] Abbi Choudhary M.D. [id number] [Moles/Vol]143 mmol/GNbfxub953-537YruewnParkview Noble Hospital on above:Order Comment: [facility] has implemented the eGFR calculation approach that does not have a coefficient for race that conforms to the NKF-ASN Task Force Recommendations.Performed By: #### [id number] ####[facility] [address] [place], [place] [address] Abbi Choudhary M.D. [id number] nitrogen [Mass/Vol]27 mg/dLHigh8-25[facility] on above:Order Comment: [facility] has implemented the eGFR calculation approach that does not have a coefficient for race that conforms to the NKF-ASN Task Force Recommendations.Performed By: #### [id number] ####[address] [address] Abbi Choudhary M.D. [id number] nitrogen/Creatinine [Mass ratio]17.0 mg/acUveebp82.0-20.0[facility] on above:Order Comment: [facility] has implemented the eGFR calculation approach that does not have a coefficient for race that conforms to the NKF-ASN Task Force Recommendations.Performed By: #### [id number] ####[facility] [address] [place] [address] Abbi Choudhary M.D. [id number] function 2000 panel on 01-82-9083Pbwupvp [Mass/Vol]3.4 g/dL3.2 - 5.2 g/dLOhioHealthAnion gap [Moles/Vol]13 mmol/L10 - 20 mmol/LOhioHealthCalcium [Mass/Vol]8.7 mg/dL8.4 - 10.2 mg/dLOhioHealthChloride [Moles/Vol]109 mmol/LHigh98 - 108 mmol/LOhioHealth Creatinine [Mass/Vol]1.59 mg/dLHigh0.40 - 1.10 mg/dLOhioHealthGFR/1.73 sq M.predicted CKD-EPI (S/P/Bld) [Vol rate/Area]40Low- PINFOhioHealthComment on above:Estimated GFR was calculated using the 2020 CKD-EPI creatinine equation. Glucose [Mass/Vol]102 mg/oCUgjl13 - 99 mg/dLOhioHealthHCO3 [Moles/Vol]25 mmol/L 21 - 32 mmol/LOhioHealthInterpretation and review of laboratory resultsAbnormal OhioHealthPhosphate [Mass/Vol]4.8 mg/dLHigh2.7 - 4.5 mg/dLOhioHealthPotassium [Moles/Vol]4.2 mmol/L3.5 - 5.1 mmol/LOhioHealthSodium [Moles/Vol]143 mmol/L135 - 145 mmol/LOhioHealthUrea nitrogen [Mass/Vol]27 mg/dLHigh8 - 25 mg/dLOhioHealth Urea nitrogen/Creatinine [Mass ratio]17.0 mg/mg10.0 - 20.0OhMer[facility] has implemented the eGFR calculation approach that does not have a coefficient for race that conforms to the NKF-ASN Task Force Recommendations.[facility] HospitalCBCon 31-62-7429QGZW NRBC0.0 %NormalOaklawn Psychiatric CenterComment on above:Performed By: #### [id number] ####[facility] [address] [place], [place] [address] Abbi Choudhary M.D. [id number] NRBC ABS COUNT0.00 K/mcLNormal0.00-0.00[facility] Psychiatric CenterComment on above:Performed By: #### [id number] ####[facility] [address] [place], [place] [address] Abbi Choudhary M.D. [id number] distribution width (RBC) [Ratio]13.2 %Bjkmow39.6-14.8 [facility] CenterComment on above:Performed By: #### [id number] ####[facility] [address] [place], [place] [address] Abbi Choudhary M.D. [id number] (Bld) [Volume fraction]29.6 %Low36.0-46.0O[facility] Psychiatric CenterComment on above:Performed By: #### [id number] ####[facility] [address] [place] [address] Abbi Choudhary M.D. [id number] (Bld) [Mass/Vol]9.7 g/dLLow12.0-16.0 [facility] CenterComment on above:Performed By: #### [id number] ####[facility] [address] [place] [address] Abbi Choudahry M.D. [id number] (RBC) [Entitic mass]30.8 skIdvodc80.0-34.0O[facility] Psychiatric CenterComment on above: Performed By: #### [id number] ####[facility] [address] [place] [address] Abbi Choudhary M.D. [id number] (RBC) [Entitic vol]94.0 hHZbfvny55.0-100.0[facility] Psychiatric CenterComment on above:Performed By: #### [id number] ####[facility] [address] [place] [address] Abbi Choudhary M.D. [id number] CORPUSCULAR HEMOGLOBIN CONC32.8 g/tITtgcuk42.0-37.0O[facility] Psych[facility] CenterComment on above: Performed By: #### [id number] ####[facility] [address] [place] [address] Abbi Choudhary M.D. [id number] mean volume (Bld) [Entitic vol]9.0 fLLow 9.4-12.4O[facility] Psychiatric CenterComment on above:Performed By: #### [id number] ####[facility] [address] [place] [address] Abbi Choudhary M.D. [id number] Platelets (Bld) [#/Vol]264 10*3/cKNuzchp824-819WtwrzaOaklawn Psychiatric CenterComment on above:Performed By: #### [id number] ####[facility] [address] [place] [address] Abbi Choudhary M.D. [id number] (Bld) [#/Vol]3.15 10*6/uLLow4.00-5.20 [facility] CenterComment on above:Performed By: #### [id number] ####[facility] [address] [place], [place] [address] Abbi Choudhary M.D. [id number] (Bld) [#/Vol]7.49 10*3/uLNormal4.50-11.00[facility] Psych[facility] CenterComment on above: Performed By: #### [id number] ####[facility] [address] [place], [place] [address] Abbi Choudhary M.D. [id number] panel Auto (Bld)on 80-05-3910Jtzrsadctdl distribution width (RBC) [Entitic vol]13.2 %11.6 - [...] 01-14-2024 Interpretation and review of laboratory resultsNormalOhioHealthOhioHealthCPKon 24-88-8865AHQ42 U/VYqfmub48-041TnxsxyOaklawn Psychiatric CenterComment on above:Performed By: #### [id number] ####[facility] [address] [place], [place] [address] Abbi Choudhary M.D. [id number] NO MBon 29-14-1543SN [Catalytic activity/Vol]57 U/L40 - 170 U/LOhioHealthGlucose (Bld) [Mass/Vol]on 16-53-6913Tzrgugk [Mass/Vol]194 mg/dL High65 - 99 mg/dLOhioHealthInterpretation and review of laboratory results AbnormalOhioHealthOhioHealthGlucose [Mass/Vol]77 mg/dL65 - 99 mg/dLOhioHealth Interpretation and review of laboratory resultsNormalOhioHealthOhioHealthGlucose [Mass/Vol]239 mg/yGEele76 - 99 mg/dLOhioHealthInterpretation and review of laboratory resultsAbnormalOhioHealthOhioHealthGlucose [Mass/Vol]99 mg/dL65 - 99 mg/dLOhioHealthInterpretation and review of laboratory resultsNormalODayton Children's Hospitalealth [facility] GLUCOSE - RALSon 73-89-9403Hfdzapm [Mass/Vol]194 mg/mKIfdc27-32 [facility] CenterComment on above:Performed By: #### [id number] ####[facility] [address] [place], [place] [address] Abbi Choudhary M.D. [id number] [Mass/Vol]77 mg/nIQjvrby82-41MvncqqDaviess Community HospitalComment on above:Performed By: #### [id number] ####[facility] [address] [place], [place] [address] Abbi Choudhary M.D. [id number] [Mass/Vol]239 mg/vLYfle93-35CeqppzSelect Specialty Hospital [facility] on above:Performed By: #### [id number] ####[facility] [address] [place], [place] [address] Abbi Choudhary M.D. [id number] [Mass/Vol]99 mg/dLNormal 65-99MDaviess Community HospitalComment on above:Performed By: #### [id number] ####[facility] [address] [place], [place] [address] Abbi Choudhary M.D. [id number] FUNCTION PANELon 91-95-0743Ihwemov [Mass/Vol]3.4 g/dLNormal3.2-5.2MDaviess Community HospitalComsheridan community hospital on above:Order Comment: [facility] has implemented the eGFR calculation approach that does not have a coefficient for race that conforms to the NKF-ASN Task Force Recommendations.Performed By: #### 51086 #### LAB [address] [place] [address] Abbi Choudhary M.D. [id number] gap [Moles/Vol]13 mmol/EQzhvku47-65YjjdgnOaklawn Psychiatric Center Comment on above:Order Comment: [facility] has implemented the eGFR calculation approach that does not have a coefficient for race that conforms to the NKF-ASN Task Force Recommendations.Performed By: #### [id number] ####[facility] [address] [place], [place] [address] Abbi Choudhary M.D. 36D0 [id number] [Mass/Vol]8.5 mg/dLNormal8.4-10.[address] [place] [address] on above:Order Comment: [facility] has implemented the eGFR calculation approach that does not have a coefficient for race that conforms to the NKF-ASN Task Force Recommendations.Performed By: #### [id number] ####[facility] [address] [place], [place] [address] Abbi Choudhary M.D. [id number] [Moles/Vol]107 mmol/SMnqwdi78-992UlucalParkview Noble Hospital on above:Order Comment: [facility] has implemented the eGFR calculation approach that does not have a coefficient for race that conforms to the NKF-ASN Task Force Recommendations.Performed By: #### [id number] ####[facility] [address] [place] [address] Abbi Choudhary M.D. [id number] [Mass/Vol]1.59 mg/dLHigh0.40-1.10[facility] on above:Order Comment: [facility] has implemented the eGFR calculation approach that does not have a coefficient for race that conforms to the NKF-ASN Task Force Recommendations.Performed By: #### 99076 ####[facility] [address] [place], [place] [address] Abbi Choudhary M.D. [id number] mL/min/1.73 m2Low>=60 [facility] on above:Order Comment: [facility] has implemented the eGFR calculation approach that does not have a coefficient for race that conforms to the NKF-ASN Task Force Recommendations. Result Comment: Estimated GFR was calculated using the 2020 CKD-EPI creatinine equation.Performed By: #### [id number] ####[facility] [address] [place], [place] [address] Abbi Choudhary M.D. [id number] [Mass/Vol]149 mg/jNDiho40-34IjqcyjSt. Mary's [facility] Hospital on above:Order Comment: [facility] has implemented the eGFR calculation approach that does not have a coefficient for race that conforms to the NKF-ASN Task Force Recommendations.Performed By: #### [id number] ####[facility] [address] [place], [place] [address] Abbi Choudhary M.D. [id number] (Bld) [Moles/Vol]25 mmol/EOxbmay94-25AdxsrfOaklawn Psychiatric Center Comment on above:Order Comment: [facility] has implemented the eGFR calculation approach that does not have a coefficient for race that conforms to the NKF-ASN Task Force Recommendations.Performed By: #### [id number] ####[facility] [address] [place], [place] [address] Abbi Choudhary M.D. 36D0 843255Uboqebesh [Mass/Vol]4.7 mg/dLWetzel County Hospital2.7-4.5[facility] on above:Order Comment: [facility] has implemented the eGFR calculation approach that does not have a coefficient for race that conforms to the NKF-ASN Task Force Recommendations.Performed By: #### 12156 ####[facility] [address] [place], [place] [address] Abbi Choudhary M.D. [id number] [Moles/Vol]4.1 mmol/LNormal3.5-5.1MSt. Mary's Warrick Hospital on above:Order Comment: [facility] has implemented the eGFR calculation approach that does not have a coefficient for race that conforms to the NKF-ASN Task Force Recommendations.Performed By: #### [id number] ####[facility] [address] [place] [address] Abbi Choudhary M.D. [id number] [Moles/Vol]141 mmol/JKbxpke777-288FojfhkParkview Noble Hospital on above:Order Comment: [facility] has implemented the eGFR calculation approach that does not have a coefficient for race that conforms to the NKF-ASN Task Force Recommendations.Performed By: #### 34748 ####[facility] [address] [place], [place] [address]Alisia Choudhary M.D. [id number] nitrogen [Mass/Vol]28 mg/dLHigh8-25[facility] on above:Order Comment: [facility] has implemented the eGFR calculation approach that does not have a coefficient for race that conforms to the NKF-ASN Task Force Recommendations.Performed By: #### [id number] ####[facility] [address] [place], [place] [address] Abbi Choudhary M.D. [id number] nitrogen/Creatinine [Mass ratio]17.6 mg/joQfepqv79.0-20.0[facility] on above:Order Comment: [facility] has implemented the eGFR calculation approach that does not have a coefficient for race that conforms to the NKF-ASN Task Force Recommendations.Performed By: #### [id number] #### LAB [address] [place], [place] [address]Alisia Choudhary M.D. [id number] function 2000 panel on 92-52-1323Uyswauo [Mass/Vol]3.4 g/dL3.2 - 5.2 g/dLOhioHealthAnion gap [Moles/Vol]13 mmol/L10 - 20 mmol/LOhioHealthCalcium [Mass/Vol]8.5 mg/dL8.4 - 10.2 mg/dLOhioHealthChloride [Moles/Vol]107 mmol/L98 - 108 mmol/LOhioHealth Creatinine [Mass/Vol]1.59 mg/dLHigh0.40 - 1.10 mg/dLOhioHealthGFR/1.73 sq M.predicted CKD-EPI (S/P/Bld) [Vol rate/Area]40Low- PINFOhioHealthComment on above:Estimated GFR was calculated using the 2020 CKD-EPI creatinine equation. Glucose [Mass/Vol]149 mg/vYDulz97 - 99 mg/dLOhioHealthHCO3 [Moles/Vol]25 mmol/L 21 - 32 mmol/LOhioHealthInterpretation and review of laboratory resultsAbnormal OhioHealthPhosphate [Mass/Vol]4.7 mg/dLHigh2.7 - 4.5 mg/dLOhioHealthPotassium [Moles/Vol]4.1 mmol/L3.5 - 5.1 mmol/LOhioHealthSodium [Moles/Vol]141 mmol/L135 - 145 mmol/LOhioHealthUrea nitrogen [Mass/Vol]28 mg/dLHigh8 - 25 mg/dLOhioHealth Urea nitrogen/Creatinine [Mass ratio]17.6 mg/mg10.0 - 20.0OhioWooster Community HospitalioOhio [facility] has implemented the eGFR calculation approach that does not have a coefficient for race that conforms to the NKF-ASN Task Force Recommendations.[facility] HospitalioHealthURINALYSISon 91-94-7390HSZSNYNG, URINENone SeenNormalNone SeenOaklawn Psychiatric CenterComment on above:Order Comment: Microscopic examination is performed on all urinalysis samples and only positive findings are reported. The test for blood on the chemical analytic portion of urinalysis may also be positive due to hemoglobinuria and myoglobinuria and if red blood cells are present they are quantified by microscopic examination. Performed By: #### [id number] ####[facility] [address] [place] [address] Abbi Choudhary M.D. [id number], URINENegativeNormalNegativeOaklawn Psychiatric CenterComsheridan community hospital on above:Order Comment: Microscopic examination is performed on all urinalysis samples and only positive findings are reported. The test for blood on the chemical analytic portion of urinalysis may also be positive due to hemoglobinuria and myoglobinuria and if red blood cells are present they are quantified by microscopic examination.Performed By: #### [id number] ####[facility] [address] [place], [place] [address] Abbi Choudhary M.D. [id number], URINE NegativeNormsdNegDeKalb Memorial HospitalComment on above:Order Comment: Microscopic examination is performed on all urinalysis samples and only positive findings are reported. The test for blood on the chemical analytic portion of urinalysis may also be positive due to hemoglobinuria and myoglobinuria and if red blood cells are present they are quantified by microscopic examination. Performed By: #### [id number] ####[facility] [address] [place], [place] [address] Abbi Choudhary M.D. [id number] (U)ClearNoalCDeaconess Cross Pointe Center Comment on above:Order Comment: Microscopic examination is performed on all urinalysis samples and only positive findings are reported. The test for blood on the chemical analytic portion of urinalysis may also be positive due to hemoglobinuria and myoglobinuria and if red blood cells are present they are quantified by microscopic examination.Performed By: #### [id number] ####[facility] [address] [place], [place] [address] Abbi Choudhary M.D. [id number] (U)Yellow NormalColorless, [facility] Terre HauteComment on above:Order Comment: Microscopic examination is performed on all urinalysis samples and only positive findings are reported. The test for blood on the chemical analytic portion of urinalysis may also be positive due to hemoglobinuria and myoglobinuria and if red blood cells are present they are quantified by microscopic examination. Performed By: #### [id number] ####[facility] [address] [place], [place] [address] Abbi Choudhary M.D. [id number] Ql (U)150 mg/dLAbnormKindred HospitalComment on above:Order Comment: Microscopic examination is performed on all urinalysis samples and only positive findings are reported. The test for blood on the chemical analytic portion of urinalysis may also be positive due to hemoglobinuria and myoglobinuria and if red blood cells are present they are quantified by microscopic examination.Performed By: #### [id number] ####[facility] [address] [place] [address] Abbi Choudhary M.D. [id number] Ql (U) NegativeNormKindred HospitalComment on above:Order Comment: Microscopic examination is performed on all urinalysis samples and only positive findings are reported. The test for blood on the chemical analytic portion of urinalysis may also be positive due to hemoglobinuria and myoglobinuria and if red blood cells are present they are quantified by microscopic examination. Performed By: #### 67592 ####[facility] [address] [place] [address] Abbi Choudhary M.D. [id number] esterase Test strip Ql (U)NegativeNormal Memorial Hospital and Health Care CenterComment on above:Order Comment: Microscopic examination is performed on all urinalysis samples and only positive findings are reported. The test for blood on the chemical analytic portion of urinalysis may also be positive due to hemoglobinuria and myoglobinuria and if red blood cells are present they are quantified by microscopic examination.Performed By: #### 54826 ####[facility] [address] [place] [address] Abbi Choudhary M.D. [id number], URINERareNormalNone Seen, [facility] Comment on above:Order Comment: Microscopic examination is performed on all urinalysis samples and only positive findings are reported. The test for blood on the chemical analytic portion of urinalysis may also be positive due to hemoglobinuria and myoglobinuria and if red blood cells are present they are quantified by microscopic examination.Performed By: #### [id number] ####[facility] [address] [place], [place] [address] Abbi Choudhary M.D. [id number], URINE NegativeNormalNegDeKalb Memorial HospitalComment on above:Order Comment: Microscopic examination is performed on all urinalysis samples and only positive findings are reported. The test for blood on the chemical analytic portion of urinalysis may also be positive due to hemoglobinuria and myoglobinuria and if red blood cells are present they are quantified by microscopic examination. Performed By: #### [id number] ####[facility] [address] [place] [address] Abbi Choudhary M.D. [id number] (U)5.0 [pH]Normal5.0-7.0[facility] Comment on above:Order Comment: Microscopic examination is performed on all urinalysis samples and only positive findings are reported. The test for blood on the chemical analytic portion of urinalysis may also be positive due to hemoglobinuria and myoglobinuria and if red blood cells are present they are quantified by microscopic examination.Performed By: #### 75077 ####[facility] [address] [place] [address] Abbi Choudhary M.D. [id number] (U) [Mass/Vol]100 mg/dLAbnormalNegativeOaklawn Psychiatric CenterComment on above:Order Comment: Microscopic examination is performed on all urinalysis samples and only positive findings are reported. The test for blood on the chemical analytic portion of urinalysis may also be positive due to hemoglobinuria and myoglobinuria and if red blood cells are present they are quantified by microscopic examination.Performed By: #### [id number] ####[facility] [address] [place] [address] Abbi Choudhary M.D. [id number] LM.HPF (Urine sed) [#/Area]1 /[HPF]Normal0-3MDaviess Community HospitalComment on above:Order Comment: Microscopic examination is performed on all urinalysis samples and only positive findings are reported. The test for blood on the chemical analytic portion of urinalysis may also be positive due to hemoglobinuria and myoglobinuria and if red blood cells are present they are quantified by microscopic examination. Performed By: #### [id number] ####[facility] [address] [place], [place] [address] Abbi Choudhary M.D. [id number] gravity (U) [Rel density]1.017Normal 1.005-1.025[facility] on above:Order Comment: Microscopic examination is performed on all urinalysis samples and only positive findings are reported. The test for blood on the chemical analytic portion of urinalysis may also be positive due to hemoglobinuria and myoglobinuria and if red blood cells are present they are quantified by microscopic examination.Performed By: #### [id number] ####[facility] [address] [address] Abbi Choudhary M.D. [id number] EPITHELIAL<Normal0-4[facility] on above:Order Comment: Microscopic examination is performed on all urinalysis samples and only positive findings are reported. The test for blood on the chemical analytic portion of urinalysis may also be positive due to hemoglobinuria and myoglobinuria and if red blood cells are present they are quantified by microscopic examination.Performed By: #### [id number] #### LAB [address] [address] Abbi Choudhary M.D. [id number], URINE<2.0Normal<2.0[facility] on above:Order Comment: Microscopic examination is performed on all urinalysis samples and only positive findings are reported. The test for blood on the chemical analytic portion of urinalysis may also be positive due to hemoglobinuria and myoglobinuria and if red blood cells are present they are quantified by microscopic examination. Performed By: #### [id number] ####[facility] [address] [place], [place] [address] Abbi Choudhary M.D. [id number] LM.HPF (Urine sed) [#/Area]1 /[HPF]Normal0-5[facility] on above:Order Comment: Microscopic examination is performed on all urinalysis samples and only positive findings are reported. The test for blood on the chemical analytic portion of urinalysis may also be pos itive due to hemoglobinuria and myoglobinuria and if red blood cells are present they are quantified by microscopic examination.Performed By: #### [id number] #### LAB [address] [place], [place] [address] Abbi Choudhary M.D. [id number] UrinalysisOrdered By: Kendra Bae on 28-88-9800Ctvtwjeh Auto Ql (U)None Seen None Seen /hpfOhioHealthBilirubin [...] present they are quantified by microscopic examination.OhioHealthOhioHealthCBCon 50-54-8171OVZB NRBC0.0 %[facility] HospitalComment on above:Performed By: #### [id number] ####[facility] [address] [address] Abbi Choudhary M.D. 36D0 [id number] NRBC ABS COUNT0.00 K/mcLNormal0.00-0.00[facility] HospitalComment on above:Performed By: #### [id number] ####[facility] [address] [address] Abbi Choudhary M.D. [id number] distribution width (RBC) [Ratio] 13.1 %Tprstw66.6-14.8[facility] HospitalComment on above:Performed By: #### [id number] ####[facility] [address] [address] Abbi Choudhary M.D. [id number] (Bld) [Volume fraction]27.5 %Low36.0-46.0[facility] HospitalComment on above:Performed By: #### [id number] ####[facility] [address] [address] Abbi Choudhary M.D. [id number] (Bld) [Mass/Vol]9.3 g/dLLow12.0-16.0[facility] CenterComment on above:Performed By: #### [id number] ####[facility] [address] [address] Abbi Choudhary M.D. [id number] (RBC) [Entitic mass]31.1 gvOxslkg87.0-34.0[facility] Comment on above:Performed By: #### [id number] ####[facility] [address] [address] Abbi Choudhary M.D. [id number] (RBC) [Entitic vol]92.0 fLNormal 80.0-100.0[facility] Psych[facility] CenterComment on above:Performed By: #### [id number] ####[facility] [address] [address] Abbi Choudhary M.D. 36D0 [id number] CORPUSCULAR HEMOGLOBIN CONC33.8 g/iIRxgxrh56.0-37.0[facility] CenterComment on above:Performed By: #### [id number] ####[facility] [address] [address] Abbi Choudhary M.D. [id number] mean volume (Bld) [Entitic vol]8.6 fLLow9.4-12.4[facility] CenterComment on above:Performed By: #### [id number] ####[facility] [address] [place], [place] [address] Abbi Choudhary M.D. [id number] (Bld) [#/Vol]238 10*3/wGFrphkh290-288HxnofwOaklawn Psychiatric CenterComment on above:Performed By: #### [id number] ####[facility] [address] [address] Abbi Choudhary M.D. [id number] (Bld) [#/Vol]2.99 10*6/uL Low4.00-5.20[facility] CenterComment on above:Performed By: #### [id number] ####[facility] [address] [address] Abbi Choudhary M.D. 36D0 [id number] (Bld) [#/Vol]7.09 10*3/uLNormal4.50-11.00[facility] Comment on above:Performed By: #### [id number] ####[facility] [address] [address] Abbi Choudhary M.D. [id number] panel Auto (Bld)on 01-13-2024 Erythrocyte distribution width (RBC) [Entitic vol]13.1 %11.6 - 14.8 %[facility] Hematocrit (Bld) [Volume fraction]27.5 %Low36.0 - [...] 10*3/uLOhioHealthRBC (Bld) [#/Vol]2.99 10*6/uLLowOhioHealthWBC (Bld) [#/Vol]7.09 10*3/uLOhioHealthOhioHealthCONSULTon 41-22-1171EOSWLZPSflwuwTkkeud General HospitalCT FOOT LEFT WITHOUT CONTRASTon 35-45-5433[place] FOOT LEFT WITHOUT CONTRASTPulaski Memorial HospitalComment on above:Order Comment: Injury/Trauma or [...] The hardware is incompletely included on the bqgcf-tl-accd for this study. Thereis cystic change and [...] The hardware is incompletely included on the aztcd-al-ktpi for this study. Thereis cystic change and [...] as described above. TROY/xochitl Workstation ID: [id number] [facility] HospitalRadiology Study observation (narrative)[facility] Foot - left WO contrastOrdered By: Preston Rajan on 73-92-5274RzbtWeoefi Work Phone: ecg 12 Leadon 24-54-5488Dzokfx Vmeu80GTCPunsOjfpycX Uoub75bjvddhbLybmYtjvrcC-D Ztchygnt010 msOhioHealthQ-T Fbsssxhp843 msOhioHealth QRS Ggdmhpys60 msOhioHealthQTC Calculation (Carline)439 msOhioHealthR Axis18 degreesOhioHealthT Jtsq05dstcinwEswtFxbuhxKsxjuiyijma Lwaf55PHTTerhXvznpvKxstnw sinus rhythm Possible Left atrial enlargement Confirmed by Monique Pillai MD ([id number]) on 01/13/2024 8:52:41 AMMUSENvioOhio Valley Surgical Hospital Glucose (Bld) [Mass/Vol]on 48-04-4013Vzwaemz [Mass/Vol]177 mg/iPYkkx31 - 99 mg/dLOhioHealthInterpretation and review of laboratory resultsAbnoMercy Health St. Anne HospitalGlucose [Mass/Vol]119 mg/sVAeuv27 - 99 mg/dLOhioHealthInterpretation and review of laboratory resultsAbnoOhioHealth [facility]ering[facility] Methodist HospitalGlucose [Mass/Vol] 116 mg/lPFxrz92 - 99 mg/dLOhioHealthInterpretation and review of laboratory resultsAbnormTwin City HospitalGlucose [Mass/Vol]103 mg/sRXblj30 - 99 mg/dL OhioHealthInterpretation and review of laboratory resultsAbnormMercy Health Tiffin HospitalGlucose [Mass/Vol]122 mg/vABpvn81 - 99 mg/dLOhioHealthInterpretation and review of laboratory resultsAbnoEast [facility] City Hospital GLUCOSE - Micky 37-84-6137Clfstvi [Mass/Vol]177 mg/wRMcxp43-23Rpejco [facility] HospitalComment on above:Performed By: #### [id number] ####[facility] [address] [address] Abbi Choudhary M.D. [id number] [Mass/Vol]119 mg/tQDsrm54-84Bswzyd [facility] HospitalComment on above:Performed By: #### [id number] ####[facility] [address] [address] Abbi Choudhary M.D. [id number] [Mass/Vol]116 mg/yEFrfn27-21Zgcgkw [facility] HospitalComment on above:Performed By: #### [id number] ####[facility] [address] [place], [place] [address] Abbi Choudhary M.D. [id number] [Mass/Vol]103 mg/rYPswn26-79RhbawtDaviess Community Hospital Comment on above:Performed By: #### [id number] ####[facility] [address] [place], [place] [address] Abbi Choudhary M.D. [id number] [Mass/Vol]122 mg/iMLnuw17-48 [facility] CenterComment on above:Performed By: #### [id number] ####[facility] [address] [place], [place] [address] Abbi Choudhary M.D. [id number] FUNCTION PANELon 53-06-7961Lyszoav [Mass/Vol]3.1 g/dLLow3.2-5.2MDaviess Community HospitalComment on above:Order Comment: [facility] has implemented the eGFR calculation approach that does not have a coefficient for race that conforms to the NKF-ASN Task Force Recommendations.Performed By: #### [id number] ####[facility] [address] [place], [place] [address] Abbi Choudhary M.D. [id number] gap [Moles/Vol]16 mmol/YHuilxs07-49IajxwuOaklawn Psychiatric Center Comment on above:Order Comment: [facility] has implemented the eGFR calculation approach that does not have a coefficient for race that conforms to the NKF-ASN Task Force Recommendations.Performed By: #### [id number] ####[facility] [address] [place], [place] [address] Abbi Choudhary M.D. 36D0 [id number] [Mass/Vol]8.4 mg/dLNormal8.4-10.2MDaviess Community HospitalComsheridan community hospital on above:Order Comment: [facility] has implemented the eGFR calculation approach that does not have a coefficient for race that conforms to the NKF-ASN Task Force Recommendations.Performed By: #### [id number] ####[facility] [address] [place], [place] [address] Abbi Choudhary M.D. [id number] [Moles/Vol]105 mmol/PYtzyhe68-174JcpejdParkview Noble Hospital on above:Order Comment: [facility] has implemented the eGFR calculation approach that does not have a coefficient for race that conforms to the NKF-ASN Task Force Recommendations.Performed By: #### [id number] ####[facility] [address] [place], [place] [address] Abbi Choudhary M.D. [id number] [Mass/Vol]1.32 mg/dLHigh0.40-1.10[facility] on above:Order Comment: [facility] has implemented the eGFR calculation approach that does not have a coefficient for race that conforms to the NKF-ASN Task Force Recommendations.Performed By: #### [id number] ####[facility] [address] [address] Abbi Choudhary M.D. [id number] mL/min/1.73 m2Low>=60 [facility] on above:Order Comment: [facility] has implemented the eGFR calculation approach that does not have a coefficient for race that conforms to the NKF-ASN Task Force Recommendations. Result Comment: Estimated GFR was calculated using the 2020 CKD-EPI creatinine equation.Performed By: #### [id number] ####[facility] [address] [address] Abbi Choudhary M.D. [id number] [Mass/Vol]157 mg/jRCmrk31-84UaxmuoSt. Mary's Warrick Hospital on above:Order Comment: [facility] has implemented the eGFR calculation approach that does not have a coefficient for race that conforms to the NKF-ASN Task Force Recommendations.Performed By: #### [id number] ####[facility] [address] [place], [place] [address] Abbi Choudhary M.D. [id number] (Bld) [Moles/Vol]21 mmol/NWrsral09-54TkuknzOaklawn Psychiatric Center Comment on above:Order Comment: [facility] has implemented the eGFR calculation approach that does not have a coefficient for race that conforms to the NKF-ASN Task Force Recommendations.Performed By: #### [id number] ####[facility] [address] [address] Abbi Choudhary M.D. 36D0 [id number] [Mass/Vol]3.7 mg/dLNormal2.7-4.5[facility] on above:Order Comment: [facility] has implemented the eGFR calculation approach that does not have a coefficient for race that conforms to the NKF-ASN Task Force Recommendations.Performed By: #### [id number] ####[facility] [address] [address] Abbi Choudhary M.D. [id number] [Moles/Vol]4.1 mmol/LNormal3.5-5.1MSt. Mary's Warrick Hospital on above:Order Comment: [facility] has implemented the eGFR calculation approach that does not have a coefficient for race that conforms to the NKF-ASN Task Force Recommendations.Result Comment: Slightly HemolyzedPerformed By: #### [id number] #### LAB [address] [place] [address] Abbi Choudhary M.D. [id number] [Moles/Vol]138 mmol/HPtcomy664-730OhmtigOaklawn Psychiatric Center Comment on above:Order Comment: [facility] has implemented the eGFR calculation approach that does not have a coefficient for race that conforms to the NKF-ASN Task Force Recommendations.Performed By: #### [id number] ####[facility] [address] [address] Abbi Choudhary M.D. 36D0 [id number] nitrogen [Mass/Vol]27 mg/dLHigh8-25[facility] Psychiatric CenterComsheridan community hospital on above:Order Comment: [facility] has implemented the eGFR calculation approach that does not have a coefficient for race that conforms to the NKF-ASN Task Force Recommendations.Performed By: #### [id number] #### LAB [address] [address] Abbi Choudhary M.D. [id number] nitrogen/Creatinine [Mass ratio]20.5 mg/rtRbzi74.0-20.0[facility] Comment on above:Order Comment: [facility] has implemented the eGFR calculation approach that does not have a coefficient for race that conforms to the NKF-ASN Task Force Recommendations.Performed By: #### [id number] ####[facility] [address] [address] Abbi Choudhary M.D. 36D0 115115Niejr function 2000 panelOrdered By: Alberta Vo on 01-13-2024 Albumin [Mass/Vol]3.1 g/dLLow3.2 - 5.2 g/dLOhioHealthAnion gap [Moles/Vol]16 mmol/L10 - 20 mmol/LOhioHealthCalcium [Mass/Vol]8.4 mg/dL8.4 - 10.2 mg/dL OhioHealthChloride [Moles/Vol]105 mmol/L98 - 108 mmol/LOhioHealthCreatinine [Mass/Vol]1.32 mg/dLHigh0.40 - 1.10 mg/dLOhioHealthGFR/1.73 sq M.predicted CKD- EPI (S/P/Bld) [Vol rate/Area]51Low- PINFOhioHealthComment on above:Estimated GFR was calculated using the 2020 CKD-EPI creatinine equation.Glucose [Mass/Vol]157 mg/gSIvas31 - 99 mg/dLOhioHealthHCO3 [Moles/Vol]21 mmol/L21 - 32 mmol/L CaliforniaHealthInterpretation and review of laboratory resultsAbnormalOhioHealth Phosphate [Mass/Vol]3.7 [...] NKF-ASN Task Force Recommendations.OhioHealthOhioHealthBASIC METABOLIC PANEL on 79-60-3255Tibhu gap [Moles/Vol]14 mmol/AJkyipu73-05IlreioOaklawn Psychiatric Center Comment on above:Order Comment: [facility] has implemented the eGFR calculation approach that does not have a coefficient for race that conforms to the NKF-ASN Task Force Recommendations.Performed By: #### [id number] ####[facility] [address] [place], [place] [address] Abbi Choudhary M.D. 36D0 [id number] [Mass/Vol]9.0 mg/dLNormal8.4-10.2MSt. Mary's Warrick Hospital on above:Order Comment: [facility] has implemented the eGFR calculation approach that does not have a coefficient for race that conforms to the NKF-ASN Task Force Recommendations.Performed By: #### [id number] ####[facility] [address] [address] Abbi Choudhary M.D. [id number] [Moles/Vol]104 mmol/LBacbnp09-265BwzoyyOaklawn Psychiatric CenterComment on above:Order Comment: [facility] has implemented the eGFR calculation approach that does not have a coefficient for race that conforms to the NKF-ASN Task Force Recommendations.Performed By: #### [id number] ####[facility] [address] [address] Abbi Choudhary M.D. [id number] [Mass/Vol]1.06 mg/dLNormal0.40-1.10[facility] on above:Order Comment: [facility] has implemented the eGFR calculation approach that does not have a coefficient for race that conforms to the NKF-ASN Task Force Recommendations.Performed By: #### [id number] ####[facility] [address] [address] Abbi Choudhary M.D. [id number] mL/min/1.73 q6Vqorcu >=60[facility] on above:Order Comment: [facility] has implemented the eGFR calculation approach that does not have a coefficient for race that conforms to the NKF-ASN Task Force Recommendations. Result Comment: Estimated GFR was calculated using the 2020 CKD-EPI creatinine equation.Performed By: #### [id number] ####[facility] [address] [address] Abbi Choudhary M.D. [id number] [Mass/Vol]109 mg/fSKsjf77-44BtjkxaDaviess Community HospitalComment on above:Order Comment: [facility] has implemented the eGFR calculation approach that does not have a coefficient for race that conforms to the NKF-ASN Task Force Recommendations.Performed By: #### [id number] ####[facility] [address] [address] Abbi Choudhary M.D. [id number] (Bld) [Moles/Vol]26 mmol/FTksdmj52-00QqmtksOaklawn Psychiatric Center Comment on above:Order Comment: [facility] has implemented the eGFR calculation approach that does not have a coefficient for race that conforms to the NKF-ASN Task Force Recommendations.Performed By: #### [id number] ####[facility] [address] [address] Abbi Choudhary M.D. 36D0 [id number] [Moles/Vol]4.1 mmol/LNormal3.5-5.1MSt. Mary's Warrick Hospital on above:Order Comment: [facility] has implemented the eGFR calculation approach that does not have a coefficient for race that conforms to the NKF-ASN Task Force Recommendations.Performed By: #### [id number] ####[facility] [address] [address] Abbi Choudhary M.D. [id number] [Moles/Vol]140 mmol/ZVgpcqb183-336ZzlqbcOaklawn Psychiatric CenterComsheridan community hospital on above:Order Comment: [facility] has implemented the eGFR calculation approach that does not have a coefficient for race that conforms to the NKF-ASN Task Force Recommendations.Performed By: #### [id number] ####[facility] [address] [address] Abbi Choudhary M.D. [id number] nitrogen [Mass/Vol] 24 mg/dLNormal8-25[facility] on above:Order Comment: [facility] has implemented the eGFR calculation approach that does not have a coefficient for race that conforms to the NKF-ASN Task Force Recommendations.Performed By: #### [id number] ####[facility] [address] [place], [place] [address] Abbi Choudhary M.D. [id number] nitrogen/Creatinine [Mass ratio]22.6 mg/zcLpbw51.0-20.0[facility] Psychiatric CenterComment on above:Order Comment: [facility] has implemented the eGFR calculation approach that does not have a coefficient for race that conforms to the NKF-ASN Task Force Recommendations.Performed By: #### [id number] ####[facility] [address] [place], [place] [address] Abbi Choudhary M.D. [id number] metabolic 2000 panelon 61-83-4183Fxida gap [Moles/Vol]14 mmol/L10 - 20 mmol/LOhioHealthCalcium [Mass/Vol]9.0 mg/dL8.4 - 10.2 mg/dLOhioHealthChloride [Moles/Vol]104 mmol/L98 - 108 mmol/LOhioHealthCreatinine [Mass/Vol]1.06 mg/dL0.40 - 1.10 mg/dLOhioHealth GFR/1.73 sq M.predicted CKD-EPI (S/P/Bld) [Vol rate/Area]66- PINFOhioHealth Comment on above:Estimated GFR was calculated using the 2020 CKD-EPI creatinine equation.Glucose [Mass/Vol]109 mg/vKJgwe88 - 99 mg/dLOhioHealthHCO3 [Moles/Vol] 26 mmol/L21 - 32 mmol/LOhioHealthInterpretation and review of laboratory results AbnormalOhioHealthPotassium [Moles/Vol]4.1 mmol/L3.5 - 5.1 mmol/LOhioHealth Sodium [Moles/Vol]140 mmol/L135 - 145 mmol/LOhioHealthUrea nitrogen [Mass/Vol]24 mg/dL8 - 25 mg/dLOhioHealthUrea nitrogen/Creatinine [Mass ratio]22.6 mg/mgHigh 10.0 - 20.0OhioGal[facility] has implemented the eGFR calculation approach that does not have a coefficient for race that conforms to the NKF-ASN Task Force Recommendations.[facility] HospitalioOhio Valley Surgical HospitalCBC Auto Differential on 43-23-4286Mpwuptebf (Bld) [#/Vol]0.06 10*3/uLOhioHealthBasophils/100 WBC (Bld)0.6 %OhioHealthEosinophils (Bld) [#/Vol]0.63 10*3/uLHighOhioHealth Eosinophils/100 WBC (Bld)6.5 %[facility] HospitalErythrocyte distribution width (RBC) [Entitic vol]12.9 %11.6 [...] resultsAbnormalOhioHealthLymphocytes (Bld) [#/Vol]1.77 10*3/uL OhioHealthLymphocytes/100 WBC (Bld)18.3 %[facility] HospitalMCH (RBC) [Entitic mass]31.0 pg26.0 - 34.0 pgOhioHealthMCHC (RBC) [Mass/Vol]33.8 g/dL31.0 - 37.0 g/dL [facility] HospitalMCV (RBC) [Entitic vol]91.5 fL80.0 - 100.0 fLOhioHealthMonocytes (Bld) [#/Vol]0.47 10*3/uLOhioHealthMonocytes/100 WBC (Bld)4.9 %OhioHealthNeutrophils (Bld) [#/Vol]6.70 10*3/uLOhioHealthNeutrophils/100 WBC (Bld)69.2 %[facility] Nucleated RBC (Bld) [#/Vol]0.00 10*3/uLOhioHealthNucleated RBC/100 WBC (Bld) [Ratio]0.0 %OhioHealthPlatelet mean volume (Bld) [Entitic vol]9.1 fLLow9.4 - 12.4 fLOhioHealthPlatelets (Bld) [#/Vol]291 10*3/uLOhioHealthRBC (Bld) [#/Vol] 3.78 10*6/uLLowOhioHealthWBC (Bld) [#/Vol]9.68 10*3/uLOhioHealthOhioHealthCBC WITH AUTO DIFFERENTIALon 60-23-5936JNRP NRBC0.0 %[facility] Comment on above:Performed By: #### [id number] ####[facility] [address] [place], [place] [address] Abbi Choudhary M.D. [id number] NRBC ABS COUNT0.00 K/mcLNormal 0.00-0.00[facility] CenterComment on above:Performed By: #### [id number] ####[facility] [address] [address] Abbi Choudhary M.D. [id number] ABSOLUTE COUNT0.06 K/mcLNormal0.00-0.30[facility] Comment on above:Performed By: #### [id number] ####[facility] [address] [place], [place] [address] Abbi Choudhary M.D. [id number]/100 WBC (Bld)0.6 %[facility]skenazi HospitalComment on above:Performed By: #### [id number] ####[facility] [address] [place], [place] [address] Abbi Choudhary M.D. [id number] (Bld) [#/Vol]0.63 10*3/uLHigh0.00-0.50[facility] CenterComment on above: Performed By: #### [id number] ####[facility] [address] [place], [place] [address] Abbi Choudhary M.D. [id number]/100 WBC (Bld)6.5 %[facility] HospitalComment on above:Performed By: #### [id number] ####[facility] [address] [place] [address] Abbi Choudhary M.D. [id number] distribution width (RBC) [Ratio]12.9 %Qooxjn58.6-14.8[facility] Comment on above:Performed By: #### [id number] ####[facility] [address] [address] Abbi Choudhary M.D. [id number] (Bld) [Volume fraction] 34.6 %Low36.0-46.0[facility] Psychiatric CenterComment on above:Performed By: #### [id number] ####[facility] [address] [address] Abbi Choudhary M.D. [id number] (Bld) [Mass/Vol]11.7 g/dLLow12.0-16.0[facility]iatric CenterComment on above:Performed By: #### [id number] ####[facility] [address] [address] Abbi Choudhary M.D. [id number] ABSOLUTE0.05 K/mcL Normal0.00-0.30[facility] Psychiatric CenterComment on above:Performed By: #### [id number] ####[facility] [address] [address] Abbi Choudhary M.D. [id number] PERCENT0.50 %NormalOaklawn Psychiatric CenterComment on above:Result Comment: The IG parameter is the percentage of metamyelocytes, myelocytes and promyelocytes.An immature granulocyte count (IG) of 1% or more suggests the possibility of infection, an IG countof 3% is very likely related to an infection.Performed By: #### [id number] ####[facility] [address] [address] Abbi Choudhary M.D. [id number] (Bld) [#/Vol]1.77 10*3/uLNormal0.90-4.00[facility] Psychiatric CenterComment on above:Performed By: #### [id number] ####[facility] [address] [place], [place] [address] Abbi Choudhary M.D. [id number]/100 WBC (Bld)18.3 %NormalGood Samaritan Hospital HospitalComment on above:Performed By: #### [id number] ####[facility] [facility] [address] [address] Abbi Choudhary M.D. [id number] (RBC) [Entitic mass]31.0 pgNormal 26.0-34.0[facility] HospitalComment on above:Performed By: #### [id number] ####[facility] [address] [address] Abbi Choudhary M.D. 36 [id number] (RBC) [Entitic vol]91.5 cQXeical17.0-100.0[facility] Comment on above:Performed By: #### [id number] ####[facility] [address] [address] Abbi Choudhary M.D. [id number] CORPUSCULAR HEMOGLOBIN CONC33.8 g/fYOybwdt84.0-37.0[facility] CenterComment on above:Performed By: #### [id number] ####[facility] [address] [address] Abbi Choudhary M.D. [id number] (Bld) [#/Vol]0.47 10*3/uLNormal0.30-0.90[facility] CenterComment on above:Performed By: #### [id number] ####[facility] [address] [address] Abbi Choudhary M.D. [id number]/100 WBC (Bld) 4.9 %NormalGood Samaritan Hospital HospitalComment on above:Performed By: #### [id number] ####[facility] [address] [address] Abbi Choudhary M.D. 36 [id number] ABSOLUTE COUNT6.70 K/mcLNormal1.70-7.00[facility] CenterComment on above:Performed By: #### [id number] ####[facility] [address] [address] Abbi Choudhary M.D. [id number]/100 WBC (Bld) 69.2 %NormalOaklawn Psychiatric CenterComment on above:Performed By: #### [id number] ####[facility] [address] [address]Alisia Choudhary M.D. 36 [id number] mean volume (Bld) [Entitic vol]9.1 fLLow9.4-12.4[facility] CenterComment on above:Performed By: #### [id number] ####[facility] [address] [address] Abbi Choudhary M.D. [id number] (Bld) [#/Vol] 291 10*3/aFTrnwub083-065RsydrcOaklawn Psychiatric CenterComment on above:Performed By: #### [id number] ####[facility] [address] [address] Abbi Choudhary M.D. [id number] (Bld) [#/Vol]3.78 10*6/uLLow4.00-5.20[facility] Comment on above:Performed By: #### [id number] ####[facility] [address] [address] Abbi Choudhary M.D. [id number] (Bld) [#/Vol]9.68 10*3/uLNormal 4.50-11.00[facility] CenterComment on above:Performed By: #### [id number] ####[facility] [address] [address] Abbi Choudhary M.D. 36 [id number] [Mass/Vol]on 28-44-4588Rtcrwbvfyyayyg and review of laboratory resultsNormalOhioHealthOhioHealthCRP, INFLAMMATIONon 18-43-2047JPK [Mass/Vol]8.2 mg/LNormal0.0-10.0[facility] CenterComment on above:Performed By: #### [id number] ####[facility] [address] [place], [place] [address] Abbi Choudhary M.D. [id number], Inflammationon 20-94-4208YGV [Mass/Vol]8.2 mg/L0.0 - 10.0 mg/L [facility] HospitalED Prov Noteon 40-58-8116ZT Prov NoteNormalOaklawn Psychiatric CenterESR Westergren method (Bld) [Velocity]on 10-22-1201WYN (Bld) [Velocity]40 mm/hHigh OhioHealthInterpretation and review of laboratory resultsAbnormalOLancaster Municipal Hospitalth [facility] HospitalGlucose (Bld) [Mass/Vol]on 82-87-5590Ydkdkaj [Mass/Vol]92 mg/dL65 - 99 mg/dLOhioHealthInterpretation and review of laboratory resultsNoMercy Health St. Anne HospitalGold Topon 58-47-2949Ptbxt TubeHold for add-ons.OhioHealthComment on above:Auto resulted.[facility] HospitalH AND Paulino 01-12-2024H AND PNormalOaklawn Psychiatric CenterHEMOGLOBIN A1Con 91-33-4045Agyyaok [Mass/Vol]220 mg/kHWfvg12-867VwgpzeOaklawn Psychiatric CenterComment on above:Performed By: #### [id number] ####[facility] [address] [place], [place] [address] Abbi Choudhary M.D. [id number] (Bld) [Mass fraction]9.3 %High4.2-5.6MDaviess Community HospitalComment on above:Performed By: #### [id number] ####[facility] [address] [place], [place] [address] Abbi Choudhary M.D. [id number] (Bld) [Mass fraction]on 45-21-7144Vwnqfxd glucose Estimated from glycated hemoglobin (Bld) [Mass/Vol]220 mg/hLWama84 - 114 mg/dLOhioHealth Interpretation and review of laboratory resultsAbnormalOhiSelect Medical Specialty Hospital - CincinnatiOhioHealth Hemoglobin A1con 51-13-5096BjH0z (Bld) [Mass fraction]9.3 %High4.2 - 5.6 % [facility] HospitalNo Panel Informationon 69-30-8466Qpqpk TubeHold for add-ons.[facility] Comment on above:Auto resulted.[facility] GLUCOSE - RALSon 45-07-8496Djfkctj [Mass/Vol]92 mg/kSBzwhbq77-47ApwihwDaviess Community HospitalComment on above:Performed By: #### [id number] ####[facility] [address] [place], [place] [address] Abbi Choudhary M.D. [id number] RATEon 78-82-0084OVVHHJXYTKVGX RATE, AUBZOIVERTX03 mm/hrHigh0-[facility] CenterComment on above:Performed By: #### [id number] ####[facility] [address] [place], [place] [address] Abbi Choudhary M.D. [id number] FOOT LEFT 3+ VIEWS (STANDARD)on 82-97-6437QI FOOT LEFT 3+ VIEWS (STANDARD)[facility] HospitalComment on above:Order Comment: Injury/Trauma or [...] which is more sensitive. Workstation ID: [id number] [facility] Brent[facility] HospitalRadiology Study observation (narrative)[facility] HospitalXR Foot - left 3 ViewsOrdered By: Vic Mac on 87-54-6618JiyqAmtgzr Work Phone: ed Prov Noteon 30-61-3322DW [facility] NoteNormalOaklawn Psychiatric CenterXR FOOT LEFT 3+ VIEWS (STANDARD)on 82-65-9361IX FOOT LEFT 3+ VIEWS (STANDARD)[facility] HospitalComment on above:Order Comment: Injury/Trauma or Illness?:Illness/OtherHow long have you had these symptoms (acute/chronic)?:AcuteReason for exam?:1st toe painHistory of cancer?:uSurgeries, chemotherapy, or radiation?:pacemakerType of Exam?:InitialAdditional signs and symptoms?:1st toe painBASIC METABOLIC PANELon 31-26-3966Ruajx gap [Moles/Vol]15 mmol/SMlilic56-26PihwuxOaklawn Psychiatric Center Comment on above:Order Comment: [facility] has implemented the eGFR calculation approach that does not have a coefficient for race that conforms to the NKF-ASN Task Force Recommendations.Performed By: #### [id number] ####[facility] [address] [address] Abbi Choudhary M.D. [id number] [Mass/Vol]9.0 mg/dLNormal8.4-10.2MSt. Mary's [facility] on above:Order Comment: [facility] has implemented the eGFR calculation approach that does not have a coefficient for race that conforms to the NKF-ASN Task Force Recommendations.Performed By: #### [id number] ####[facility] [address] [address] Abbi Choudhary M.D. [id number] [Moles/Vol]100 mmol/JVqpkmq04-983SsggisParkview Noble Hospital on above:Order Comment: [facility] has implemented the eGFR calculation approach that does not have a coefficient for race that conforms to the NKF-ASN Task Force Recommendations.Performed By: #### [id number] ####[facility] [address] [address] Abbi Choudhary M.D. [id number] [Mass/Vol]1.27 mg/dLHigh0.40-1.10[facility] on above:Order Comment: [facility] has implemented the eGFR calculation approach that does not have a coefficient for race that conforms to the NKF-ASN Task Force Recommendations.Performed By: #### [id number] ####[facility] [address] [address] Abbi Choudhary M.D. [id number] mL/min/1.73 m2Low>=60 [facility] on above:Order Comment: [facility] has implemented the eGFR calculation approach that does not have a coefficient for race that conforms to the NKF-ASN Task Force Recommendations. Result Comment: Estimated GFR was calculated using the 2020 CKD-EPI creatinine equation.Performed By: #### [id number] ####[facility] [address] [address] Abbi Choudhary M.D. [id number] [Mass/Vol]487 mg/dLOff scale high 65-99MSt. Mary's Warrick Hospital on above:Order Comment: [facility] has implemented the eGFR calculation approach that does not have a coefficient for race that conforms to the NKF-ASN Task Force Recommendations.Performed By: #### [id number] ####[facility] [address] [address] Abbi Choudhary M.D. [id number] (Bld) [Moles/Vol]23 mmol/L Hzxxov67-01RszwenParkview Noble Hospital on above:Order Comment: [facility] has implemented the eGFR calculation approach that does not have a coefficient for race that conforms to the NKF-ASN Task Force Recommendations.Performed By: #### [id number] ####[facility] [address] [address] Abbi Choudhary M.D. [id number] [Moles/Vol]5.0 mmol/L Normal3.5-5.1MSt. Mary's Warrick Hospital on above:Order Comment: [facility] has implemented the eGFR calculation approach that does not have a coefficient for race that conforms to the NKF-ASN Task Force Recommendations.Performed By: #### [id number] ####[facility] [address] [address] Abbi Choudhary M.D. [id number] [Moles/Vol]133 mmol/LLow 135-145[facility] on above:Order Comment: [facility] has implemented the eGFR calculation approach that does not have a coefficient for race that conforms to the NKF-ASN Task Force Recommendations.Performed By: #### [id number] ####[facility] [address] [place], [place] [address] Abbi Choudhary M.D. [id number] nitrogen [Mass/Vol]30 mg/dLHigh 8-25[facility] on above:Order Comment: [facility] has implemented the eGFR calculation approach that does not have a coefficient for race that conforms to the NKF-ASN Task Force Recommendations. Performed By: #### [id number] ####[facility] [address] [address] Abbi Choudhary M.D. [id number] nitrogen/Creatinine [Mass ratio]23.6 mg/mgHigh 10.0-20.0[facility] HospitalComment on above:Order Comment: [facility] has implemented the eGFR calculation approach that does not have a coefficient for race that conforms to the NKF-ASN Task Force Recommendations.Performed By: #### [id number] ####[facility] [address] [address] Abbi Choudhary M.D. [id number] WITH AUTO DIFFERENTIALon 55-87-7195LSZU NRBC0.0 %[facility] HospitalComment on above:Performed By: #### [id number] ####[facility] [address] [address] Abbi Choudhary M.D. [id number] NRBC ABS COUNT0.00 K/mcLNormal0.00-0.00[facility] CenterComment on above:Performed By: #### [id number] ####[facility] [address] [address] Abbi Choudhary M.D. [id number] ABSOLUTE COUNT 0.08 K/mcLNormal0.00-0.30[facility] CenterComment on above:Performed By: #### [id number] ####[facility] [address] [address] Abbi Choudhary M.D. [id number]/100 WBC (Bld)0.8 %[facility] HospitalComment on above:Performed By: #### [id number] ####[facility] [address] [address] Abbi Choudhary M.D. [id number] (Bld) [#/Vol]0.26 10*3/uLNormal 0.00-0.50[facility] HospitalComment on above:Performed By: #### [id number] ####[facility] [address] [address] Abbi Choudhary M.D. 36 [id number]/100 WBC (Bld)2.7 %NormalOaklawn Psychiatric CenterComment on above:Performed By: #### [id number] ####[facility] [address] [address] Abbi Choudhary M.D. [id number] distribution width (RBC) [Ratio] 12.6 %Oiqvvi52.6-14.8[facility] CenterComment on above:Performed By: #### [id number] ####[facility] [address] [address] Abbi Choudhary M.D. [id number] (Bld) [Volume fraction]33.1 %Low36.0-46.0[facility] CenterComment on above:Performed By: #### [id number] ####[facility] [address] [address] Abbi Choudhary M.D. [id number] (Bld) [Mass/Vol]11.2 g/dLLow12.0-16.0[facility] CenterComment on above:Performed By: #### [id number] ####[facility] [address] [address] Abbi Choudhary M.D. [id number] ABSOLUTE0.05 K/mcLNormal0.00-0.30[facility] Comment on above:Performed By: #### [id number] ####[facility] [address] [address] Abbi Choudhary M.D. [id number] PERCENT0.50 %[facility] HospitalComment on above:Result Comment: The IG parameter is the percentage of metamyelocytes, myelocytes and promyelocytes.An immature granulocyte count (IG) of 1% or more suggests the possibility of infection, an IG countof 3% is very likely related to an infection.Performed By: #### [id number] ####[facility] [address] [address] Abbi Choudhary M.D. 36 [id number] (Bld) [#/Vol]2.06 10*3/uLNormal0.90-4.00[facility] HospitalComment on above:Performed By: #### [id number] ####[facility] [address] [address] Abbi Choudhary M.D. [id number]/100 WBC (Bld) 21.3 %NormalGood Samaritan Hospital HospitalComment on above:Performed By: #### [id number] ####[facility] [address] [address] Abbi Choudhary M.D. 36 [id number] (RBC) [Entitic mass]30.5 toEaodhj69.0-34.0[facility] Comment on above:Performed By: #### [id number] ####[facility] [address] [address] Abbi Choudhary M.D. [id number] (RBC) [Entitic vol]90.2 fLNormal 80.0-100.0[facility] CenterComment on above:Performed By: #### [id number] ####[facility] [address] [address] Abbi Choudhary M.D. 36 [id number] CORPUSCULAR HEMOGLOBIN CONC33.8 g/gQAbdqib66.0-37.0[facility] CenterComment on above:Performed By: #### [id number] ####[facility] [address] [address] Abbi Choudhary M.D. [id number] (Bld) [#/Vol] 0.54 10*3/uLNormal0.30-0.90[facility] CenterComment on above:Performed By: #### [id number] ####[facility] [address] [address] Abbi Choudhary M.D. [id number]/100 WBC (Bld)5.6 %NormalGood Samaritan Hospital HospitalComment on above:Performed By: #### [id number] ####[facility] [address] [address] Abbi Choudhary M.D. [id number] ABSOLUTE COUNT6.67 K/mcLNormal 1.70-7.00[facility] CenterComment on above:Performed By: #### [id number] ####[facility] [address] [place], [place] [address] Abbi Choudhary M.D. 36 [id number]/100 WBC (Bld)69.1 %NormalOaklawn Psychiatric CenterComment on above:Performed By: #### [id number] ####[facility] [address] [address] Abbi Choudhary M.D. [id number] mean volume (Bld) [Entitic vol]8.9 fLLow9.4-12.4[facility] CenterComment on above:Performed By: #### [id number] ####[facility] [address] [address] Abbi Choudhary M.D. 36 [id number] (Bld) [#/Vol]271 10*3/xMLapltv179-476HugpveOaklawn Psychiatric Center Comment on above:Performed By: #### [id number] ####[facility] [address] [address] Abbi Choudhary M.D. [id number] (Bld) [#/Vol]3.67 10*6/uLLow 4.00-5.20[facility] CenterComment on above:Performed By: #### [id number] ####[facility] [address] [address] Abbi Choudhary M.D. 36 [id number] (Bld) [#/Vol]9.66 10*3/uLNormal4.50-11.00[facility] Comment on above:Performed By: #### [id number] ####[facility] [address] [address] Abbi Choudhary M.D. [id number]-ZLUFM, QUANTITATIVEon 12-07-2023 D-DIMER QUANTITATIVE0.42 mcg/mL FEUNormal0.27-0.49[facility] CenterComment on above:Order Comment: A D-dimer concentration of <0.5 micrograms per milliliter FEU is considered a lowprobability for pulmonary embolus (PE) and deep venous thrombosis (DVT). Results of this test should always be interpreted in conjunction with the patient's medical history,clinical presentation, and other findings. Clinical diagnosis should not be based on the results of the D- dimer alone.Performed By: #### [id number] #### [facility] [address] [address] Abbi Choudhary M.D. [id number] Prov Noteon 04-40-8130FQ Prov NoteNormalOaklawn Psychiatric CenterNT PRO BNPon 13-19-0097Rmqytacgjlv peptide B (Bld) [Mass/Vol]124 pg/mLNormal0-300[facility] CenterComment on above: Order Comment: Pride Study Cut-offsRule In:< /= 50 Years >450 pg/mL51 Years - 75 Years >900 pg/mL76 Years - 99 Years >1800 pg/mLRule Out:All patients <300 pg/mL Performed By: #### [id number] ####[facility] [address] [address] Abbi Choudhary M.D. [id number] GLUCOSE - RALSon 18-40-7570Xjhbkid [Mass/Vol]339 mg/uIJiax68-31Rcjjct[address] StreetComment on above:Performed By: #### [id number] ####[facility] [address] [address] Abbi Choudhary M.D. 36D0 [id number] [Mass/Vol]454 mg/dLOff scale [address] Comment on above:Order Comment: Critical result acted upon time of test. Test performed at bedside.Performed By: #### [id number] ####[facility] [address] [address] Abbi Choudhary M.D. [id number] 06-59-9022PJQUFLXA T DELTA CHANGE INTERPRETATIONDelta troponin requires at least 3 hours between collections.[facility] HospitalComment on above:Performed By: #### [id number] ####[facility] [address] [place], [place] [address] Abbi Choudhary M.D. [id number] T NG/L17 ng/LOff scale high<=14[facility] CenterComment on above:Performed By: #### [id number] ####[facility] [address] [place], [place] [address] Abbi Choudhary M.D. [id number] TROPONIN T NG/L18 ng/LOff scale high<=14[facility] CenterComment on above:Performed By: #### [id number] ####[facility] [address] [place], [place] [address] Abbi Choudhary M.D. [id number] TROPONIN T INTERPRETATIONPossible acute cardiac injury.[facility] HospitalComment on above:Performed By: #### [id number] ####[facility] [address] [place], [place] [address] Abbi Choudhary M.D. [id number] CHEST PA/APon 46-93-5240CR CHEST PA/APNormalOaklawn Psychiatric CenterComment on above:Order Comment: Injury/Trauma or Illness?:Illness/OtherHow long have you had these symptoms (acute/chronic)?:AcuteReason for exam?:cpHistory of cancer?:uSurgeries, chemotherapy, or radiation?:pacemakerType of Exam?:InitialAdditional signs and symptoms?:Pt arrived via ems from home with c/o 7/10 mid sternal chest pain that started 2 hours ago.COVID-19, Molecularon 42-96-6153FAEE-CoV-2 (COVID-19) RdRp gene EBONIE+probe Ql (Resp)Not detectedNot DetectedOhioHealthComment on above: Testing was performed using the [employer] ID NOW COVID-19 assay on the ID NOW platform. This test has not been approved for use in asymptomatic patients and its performance in this patient population has not been evaluated. Negative results do not rule out the presence of SARS-CoV-2/COVID-19. POC Influenza Aon 63-10-0670UBLTD Ag Ql (Nph)NegativeNegativeOhioHealth [facility] Influenza Bon 79-00-3131XJMCE Ag Ql (Nph)NegativeNegative CmyfExwmvqFuqmNubrtjIMFI-LfE-2 (COVID-19) RdRp gene EBONIE+probe Ql (Resp)on 55-69-9767Zuingxivhnmiwe and review of laboratory resultsNormalOWestern Reserve HospitalEye - left US 2Don 36-68-3736NYXGalion HospitalRadiology Study observation (narrative)[facility] Aultman HospitalFUNDUS PHOTOGRAPHY-OUon 27-82-2064Aceir Eye Clear. Disc findings include normal observations. Vessel findings include A/V crossing changes, arteriole narrowing. Macula findings include microaneurysms, dot/blot hemorrhages. Cotton Wool Spots, Dot/Blot Hemorrhages. Interval change is baseline. Left Eye Vitreous Hemorrhage. Interval change is baseline.RADIOLOGYOSU Aultman HospitalRadiology Study observation (narrative)OSGalion HospitalNo Panel Informationon 10-89-1497WWUNHVSNQS: Soft tissue swelling. No acute fracture evident. Healed, internally fixated distal fibular fracture with sequela of remote collateral ligamentous trauma at the ankle. RADIOLOGYEXAM: XR FOOT LEFT 3+ VIEWS, XR ANKLE LEFT 3+ VIEWS, XR TIBIA AND FIBULA LEFT 2 VIEWS, 08/26/2023 18:44 PM (accession [id number]), 08/26/2023 18:46 PM (accession [id number]), 08/26/2023 18:46 PM (accession [id number]) COMPARISON: Ankle radiographs dated May 16, 2008 [...] LEFT 2 VIEWS, 08/26/2023 18:44 PM (accession [id number]), 08/26/2023 18:46 PM (accession [id number]), 08/26/2023 18:46 PM (accession [id number]) COMPARISON: Ankle radiographs dated May 16, 2008 [...] remote collateral ligamentous trauma at the ankle. [facility] HospitalNo Panel InformationOrdered By: Kwaku Jay on 57-79-5890EXGDayton Osteopathic Hospital Work Phone: XR Ankle - left 3 View[employer] 26-85-4731Gjxlhvzyd Study observation (narrative)[facility] HospitalXR Foot - left 3 [employer] 21-88-9654Emslpijyk Study observation (narrative)[facility] HospitalXR Tibia and Fibula - left Viewson 31-96-7565Ylxnljhwh Study observation (narrative)[facility] HospitalCBC panel Auto (Bld)on 83-48-0437Pkgzpovjkyr distribution width (RBC) [Entitic vol]13.2 %11.6 - [...] [#/Vol]7.46 10*3/uLOhioHealthOhioHealthGlucose (Bld) [Mass/Vol]on 03-30-2023 Glucose [Mass/Vol]232 mg/fQHmef94 - 99 mg/dLOhioHealthInterpretation and review of laboratory resultsAbnormalOhioHealthOhioHealthGlucose [Mass/Vol]306 mg/dLHigh 65 - 99 mg/dLOhioHealthInterpretation and review of laboratory resultsAbnormal [facility] HospitalOhioHealthRenal function 1999 panelon 43-74-0046Nlhyixn [Mass/Vol]3.2 g/dL3.2 - 5.2 g/dLOhioHealthAnion gap [Moles/Vol]10 mmol/L10 - 20 mmol/L OhioHealthCalcium [Mass/Vol]8.7 mg/dL8.4 - 10.2 mg/dLOhioHealthChloride [Moles/Vol]106 mmol/L98 - 108 mmol/LOhioHealthCreatinine [Mass/Vol]1.29 mg/dL High0.40 - 1.10 mg/dLOhioHealthGFR/1.73 sq M.predicted CKD-EPI (S/P/Bld) [Vol rate/Area]52Low- PINFOhioHealthComment on above:Estimated GFR was calculated using the 2020 CKD-EPI creatinine equation.Glucose [Mass/Vol]338 mg/mLCcod54 - 99 mg/dLOhioHealthHCO3 [Moles/Vol]25 mmol/L21 - 32 [...] that conforms to the NKF-ASN Task Force Recommendations.[facility] metabolic 1999 panelon 97-30-4707Wvfpu gap [Moles/Vol]13 mmol/L 10 - 20 mmol/LOhioHealthCalcium [Mass/Vol]9.2 mg/dL8.4 - 10.2 mg/dLOhioHealth Chloride [Moles/Vol]106 mmol/L98 - 108 mmol/LOhioHealthCreatinine [Mass/Vol]1.07 mg/dL0.40 - 1.10 mg/dLOhioHealthGFR/1.73 sq M.predicted CKD-EPI (S/P/Bld) [Vol rate/Area]65- PINFOhioHealthComment on above:Estimated GFR was calculated using the 2020 CKD-EPI creatinine equation.Glucose [Mass/Vol]122 mg/jVMdak02 - 99 mg/dLOhioHealthHCO3 [Moles/Vol]25 mmol/L21 - 32 mmol/LOhioHealthInterpretation and review of laboratory resultsAbnormalOhioHealthPotassium [Moles/Vol]3.9 mmol/L3.5 - 5.1 mmol/LOhioHealthSodium [Moles/Vol]140 mmol/L135 - 145 mmol/L OhioHealthUrea nitrogen [Mass/Vol]15 mg/dL8 - 25 mg/dLOhioHealthUrea nitrogen/Creatinine [Mass ratio]14.0 mg/mg10.0 - 20.0[facility] has implemented the eGFR calculation approach that does not have a coefficient for race that conforms to the NKF-ASN Task Force Recommendations.[facility] Auto Differentialon 77-84-9489Bghstnwzq (Bld) [#/Vol]0.06 10*3/uLOhioHealthBasophils/100 WBC (Bld)0.6 %[facility] Eosinophils (Bld) [#/Vol]0.14 10*3/uLOhioHealthEosinophils/100 WBC (Bld)1.5 % [facility] HospitalErythrocyte distribution width (RBC) [Entitic vol]13.1 %11.6 - 14.8 % [facility] HospitalHematocrit (Bld) [Volume fraction]35.1 %Low36.0 - 46.0 %[facility] Hemoglobin (Bld) [Mass/Vol]11.9 g/dLLow12.0 - 16.0 g/dLCaliforniaHealthImmature granulocytes (Bld) [#/Vol]0.05 10*3/uLOhioHealthImmature granulocytes/100 WBC (Bld)0.50 [...] (RBC) [Entitic mass]30.5 pg26.0 - 34.0 pg [facility] HospitalHC (RBC) [Mass/Vol]33.9 g/dL31.0 - 37.0 g/dLOhHealthMCV [...] findings as detailed above. Workstation ID: [id number] [facility] HospitalRadiology Study observation (narrative)[facility] Chest Abdomen Pelvis Without ContrastOrdered By: Indra Serna on 89-29-7015BgzmEbyjtf Work Phone: EKGon 21-36-8143IuhvHfjxujUynhnts (Bld) [Mass/Vol]on 65-54-2831Dbdfdno [Mass/Vol]260 mg/zMElni81 - 99 mg/dLOhioHealthInterpretation and review of laboratory resultsAbnormalOhioHealthOhioHealthGlucose [Mass/Vol]88 mg/dL65 - 99 mg/dLOhioHealthInterpretation and review of laboratory results IdjrhxRgpjHydjgbPnbfQpqamsVtD5m (Bld) [Mass fraction]on 95-08-8694Dwwovki glucose Estimated from glycated hemoglobin (Bld) [Mass/Vol]235 mg/iZLjpp61 - 114 mg/dLOhioHealthInterpretation and review of laboratory resultsAbnormal OhioHealthOhioHealthHemoglobin A1con 25-77-5950YtC5j (Bld) [Mass fraction]9.8 % High4.2 - 5.6 %[facility] HospitalHepatic function 2000 panelon 12-85-0294Lycpqdy [Mass/Vol]3.8 g/dL3.2 - 5.2 g/dLOhioHealthALP [Catalytic activity/Vol]108 U/L40 - 150 U/LOhioHealthALT [Catalytic activity/Vol]7 U/L0-35 U/LOhioHealthAST [Catalytic activity/Vol]8 U/L0-35 U/LOhioHealthBilirubin [Mass/Vol]0.3 mg/dL0.0 - 1.3 mg/dLOhioHealthBilirubin.conjugated [Mass/Vol]mg/dL0.0 - 0.4 mg/dL OhioHealthProtein [Mass/Vol]6.8 g/dL6.0 - 8.0 g/dLOhioHealthLipaseon 03-29-2023 Lipase [Catalytic activity/Vol]37 U/L15 - 65 U/LOhioHealthNo Panel Informationon 48-55-1040Uhrpj TubeHold for add-ons.OhioOhio Valley Surgical HospitalComment on above:Auto resulted. OhioHealthInterpretation and review of laboratory resultsNormalOhioHealth [facility] DL <= 0.005 mIU/L Qnon 64-90-1533Vkzubcyfpqisst and review of laboratory resultsNormalOSt. Mary's [facility] Qn2.94 m[IU]/LOhioHealthOhioHealthTroponin Ordered By: Shy Chou on 45-51-8013Gkqyz Difference Troponin T-1 ng/L< = - /+ 7 changeOhioHealthInterp Troponin T Delta ChangeProbable non-acute cardiac injury or late presentation of acute injury.OhioHealthTroponin T14 ng/LNINF - 14 ng/LOhioHealthOhioHealthTroponinOrdered By: Charisse Damon on 03-29-2023 Interpretation and review of laboratory resultsAbnormalOhioHealthTroponin T15 ng/LCritically highNINF - 14 ng/LOhioHealthTroponin T InterpretationPossible acute cardiac injury.[facility] HospitalHealthXR Chest 1 Viewon 03-29-2023 Low lung volumes and small effusion suspected. MA/RooT Workstation ID: [id number] RISEXAMINATION: XR CHEST PA/AP [...] Low lung volumes and small effusion suspected. MA/RooT Workstation ID: [id number] [facility] HospitalRadiology Study observation (narrative)[facility] HospitalXR Chest 1 View Ordered By: Laura Hodge on 55-15-0037RznwVewqhg Work Phone: Basic metabolic 2000 panelon 79-77-2332Nrjbg gap [Moles/Vol]14 mmol/L10 - 20 mmol/LOhioHealthCalcium [Mass/Vol]7.8 mg/dLLow8.4 - 10.2 mg/dLOhioHealthChloride [Moles/Vol]110 mmol/LHigh98 - 108 mmol/LOhioHealth Creatinine [Mass/Vol]1.19 mg/dLHigh0.40 - 1.10 mg/dLOhioHealthGFR/1.73 sq M.predicted CKD-EPI (S/P/Bld) [Vol rate/Area]58Low- PINFOhioHealthComment on above:Estimated GFR was calculated using the 2020 CKD-EPI creatinine equation. Glucose [Mass/Vol]227 mg/nQQhwp91 - 99 mg/dLOhioHealthHCO3 [Moles/Vol]20 mmol/L Low21 - [...] the NKF-ASN Task Force Recommendations.OhioHealthOhioHealthGlucose (Bld) [Mass/Vol]on 87-30-9929Mrfrdxs [Mass/Vol]187 mg/qSIsft87 - 99 mg/dLOhioHealth Interpretation and review of laboratory resultsAbnormMercy Health St. Elizabeth Young[facility] HospitalioOhio Valley Surgical Hospital Glucose [Mass/Vol]257 mg/sGIgrn09 - 99 mg/dLOhioHealthInterpretation and review of laboratory resultsAbnormMercy Health St. Elizabeth [facility] Hospitalio[facility] metabolic 1999 panel Ordered By: Jayna Hart on 58-46-1408Jisxg gap [Moles/Vol]15 mmol/L10 - 20 mmol/LOhioHealthCalcium [Mass/Vol]8.6 [...] 25 mg/dLOhioHealthUrea nitrogen/Creatinine [Mass ratio]11.3 mg/mg10.0 - 20.0[facility] has implemented the eGFR calculation approach that does not have a coefficient for race that conforms to the NKF-ASN Task Force Recommendations.[facility] HospitalCBC panel Auto (Bld)on 72-47-5058Mryuqrjkonc distribution width (RBC) [Entitic vol]13.7 %11.6 - [...] 8.21 10*3/uLOhioHealthOhioHealthEchocardiogram completeOrdered By: Yan Jones on 34-38-7620Kacvhn valve area3.70877xfWaufEsjlqc Work Phone: AV mean gradient3.32068lsJcHgwpFgpttn Work Phone: AV peak gradient5.18066hhZeCjlnGbzlcb Work Phone: [phone] %[facility] Work Phone: [employer] Work Phone: Echocardiogram completeon 96-57-8537Hvcmckp Info Name: ADDIE ORGAN Age: 47 years : 1975 Gender: Female Ht: 157 cm Wt: 114 kg BSA: 2.30 m2 BP: 82 / 62 mmHg Technical Quality: Fair Exam Date: 02/18/2023 6:42 PM Patient Status: Inpatient Lmft: Babs Barnes RDCS Exam Type: ECHOCARDIOGRAM COMPLETE Study Info Indications - Chest pain - Evaluate LV function Attending Physician: [facility] Referring Physician: [id number] Dinh; [id number] BMI: 45.91 kg/m2 Summary 1. Normal LV [...] Peak Gradient 3 mmHg PV Regurgitation Doppler WV Peak Velocity 111.88 cm/s WV Peak Gradient 5 mmHg Mitral Valve Name Value Normal MV Doppler (more content not included)...[employer] SYNAPSE CVCooke, Yan Leal MD - 02/19/2023 Patient Info Name: ADDIE ORGAN Age: 47 years : 1975 Gender: Female Ht: 157 cm Wt: 114 kg BSA: 2.30 m2 BP: 82 / 62 mmHg Technical Quality: Fair Exam Date: 02/18/2023 6:42 PM Patient Status: Inpatient Lmft: Babs Barnes RDCS Exam Type: ECHOCARDIOGRAM COMPLETE Study Info Indications - Chest pain - Evaluate LV function Attending Physician: [facility] ALICIA Referring Physician: MATTHIAS Noble; [id number] BMI: 45.91 kg/m2 Summary 1. Normal LV [...] Peak Gradient 3 mmHg PV Regurgitation Doppler WV Peak Velocity 111.88 cm/s WV Peak Gradient 5 mmHg Mitral Valve Name Value Normal MV Doppler MV Decel [place] 375 cm/s2 MV PHT 77 ms MV Area (PHT) 2.9 cm2 4.0-5.0 MV Diastolic Function MV E Peak Velocity 0.99 m/s MV A Peak Velocity 0.91 m/s MV E/A 1.1 MV Decel Time 265 ms MV Annular TDI MV Septal e' Velocity 8.2 cm/s >=8.0 MV E/e' (Septal) 12.1 <=8.0 MV Lateral e' Velo (more content not included)...OhioHealthGlucose (Bld) [Mass/Vol]on 19-99-9319Edgysnu [Mass/Vol]332 mg/fWJadn58 - 99 mg/dLOhioHealth Interpretation and review of laboratory resultsAbnormalODayton Children's HospitalealthOhioHealth Glucose [Mass/Vol]267 mg/dPLikz63 - 99 mg/dLOhioHealthInterpretation and review of laboratory resultsAbnormalOAvita Health System Bucyrus HospitalioHealthGlucose [Mass/Vol]162 mg/dLHigh 65 - 99 mg/dLOhioHealthInterpretation and review of laboratory resultsAbnormal OhioOhio Valley Surgical HospitalOhioHealthGlucose [Mass/Vol]63 mg/dLLow65 - 99 mg/dLOhioHealth Interpretation and review of laboratory resultsAbnormalODayton Children's HospitalealthOhioHealth Glucose [Mass/Vol]80 mg/dL65 - 99 mg/dLOhioHealthInterpretation and review of laboratory resultsNormalOhiAKealthOhioHealthLactate [Moles/Vol]on 02-19-2023 Interpretation and review of laboratory resultsNormalODayton Children's HospitalealThe Surgical Hospital at SouthwoodsioHealthLactic Acid, Plasmaon 51-00-0915Hyctoze [Moles/Vol]1.7 mmol/L0.6 - 2.0 mmol/LOhioHealth Troponin x 2 (Now and Repeat in 3 hours)on 45-98-5031Qztxqqmpttggsb and review of laboratory resultsAbnormalOhioHealthTroponin T33 ng/LCritically highNINF - 14 ng/LOhioHealthTroponin T InterpretationPossible acute cardiac injury.[facility] metabolic 2000 panelon 67-69-8405Fjqha gap [Moles/Vol]15 mmol/L 10 - 20 mmol/LOhioHealthCalcium [Mass/Vol]8.9 mg/dL8.4 - 10.2 mg/dLOhioHealth Chloride [Moles/Vol]105 mmol/L98 - 108 mmol/LOhioHealthCreatinine [Mass/Vol]0.99 mg/dL0.40 - 1.10 mg/dLOhioHealthGFR/1.73 sq M.predicted CKD-EPI (S/P/Bld) [Vol rate/Area]72- PINFOhioHealthComment on above:Estimated GFR was calculated using the 2020 CKD-EPI creatinine equation.Glucose [Mass/Vol]144 mg/qODygv72 - 99 mg/dLOhioHealthHCO3 [Moles/Vol]23 mmol/L21 - 32 mmol/LOhioHealthInterpretation and review of laboratory resultsAbnormalOhioHealthPotassium [Moles/Vol]3.8 mmol/L3.5 - 5.1 mmol/LOhioHealthSodium [Moles/Vol]139 mmol/L135 - 145 mmol/L OhioHealthUrea nitrogen [Mass/Vol]15 mg/dL8 - 25 mg/dLOhioHealthUrea nitrogen/Creatinine [Mass ratio]15.2 mg/mg10.0 - 20.0[facility] has implemented the eGFR calculation approach that does not have a coefficient for race that conforms to the NKF-ASN Task Force Recommendations.[facility] Auto Differentialon 75-46-9276Houtarbzw (Bld) [#/Vol]0.05 10*3/uLOhioHealthBasophils/100 WBC (Bld)0.6 %[facility] Eosinophils (Bld) [#/Vol]0.21 10*3/uLOhioHealthEosinophils/100 WBC (Bld)2.4 % [facility] HospitalErythrocyte distribution width (RBC) [Entitic vol]13.0 %11.6 - 14.8 % [facility] HospitalHematocrit (Bld) [Volume fraction]36.9 %36.0 - 46.0 %[facility] Hemoglobin (Bld) [Mass/Vol]12.3 g/dL12.0 - 16.0 g/dLSuburban Community Hospital & Brentwood HospitalImmature granulocytes (Bld) [#/Vol]0.04 10*3/uLOhioHealthImmature granulocytes/100 WBC (Bld)0.50 %[facility] HospitalComment on above:The IG parameter is the percentage of metamyelocytes, myelocytes and promyelocytes. An immature granulocyte count (IG) of 1% or more suggests the possibility of infection, an IG count of 3% is very likely related to an infection.Lymphocytes (Bld) [#/Vol]2.80 10*3/uLOhioHealth Lymphocytes/100 WBC (Bld)32.6 %[facility] HospitalMCH (RBC) [Entitic mass]29.4 pg26.0 - 34.0 [...] OhioHealthWBC (Bld) [#/Vol]8.58 10*3/uLOhioHealthOhioHealthEKGon 02-18-2023 OhioHealthEchocardiogram completeon 91-62-3407Swubaxjos Study observation (narrative)OhioHealthGlucose (Bld) [Mass/Vol]on 32-71-8068Wqtzrfp [Mass/Vol]204 mg/aSAvji77 - 99 mg/dLOhioHealthInterpretation and review of laboratory results AbnormalOhioHealthOhioHealthGlucose [Mass/Vol]401 mg/dLCritically high65 - 99 mg/dLOhioHealthInterpretation and review of laboratory resultsAbnormalOhioHealth Critical result acted upon time of test. Test performed at bedside.[facility] OhioHealthGlucose [Mass/Vol]336 mg/yLVzsh56 - 99 mg/dLOhioHealthInterpretation and review of laboratory resultsAbnormalOhioHealthOhioHealthGlucose [Mass/Vol] 118 mg/lHXanf67 - 99 mg/dLOhioHealthInterpretation and review of laboratory resultsAbnormalOhioHealthOhioHealthGlucose [Mass/Vol]183 mg/yKYkdd99 - 99 mg/dL [facility] HospitalInterpretation and review of laboratory resultsAbnormalOhioHealth [facility] Myocardial Perfusion Multiple SPECTOrdered By: Inessa Rao on 30-44-5214EL Stress Diastolic Aderie72 mlSub[facility] Work Phone: LV Stress Systolic Volume7 mlSuburban [facility] & [facility] Work Phone: Stress Nuc Stress EF86 %[facility] Work Phone: OhThe Surgical Hospital at [facility]woods Work Phone: OK Myocardial Perfusion Multiple SPECTon 02-18-2023 Patient Info Name: ADDIE ORGAN Age: 47 years : 1975 Gender: Female Ht: 157 cm Wt: 114 kg BSA: 2.30 m2 Exam Date: 02/18/2023 8:50 AM Patient Status: Inpatient Covering And Lining Supervisor: Aravind Wright, ROGELIO, Davide Mims RT (N), Hayden Mendieta R.T.(N), ROGELIO Exam Type: OK MYOCARDIAL PERFUSION MULTI SPECT Study Info Indications - Chest pain/anginal equiv, high CAD risk, not treadmill candidate Attending Physician: [facility] Nuclear Physician: Inessa Rao MD [phone] Primary Nurse: Sandra Sweeney RN Secondary Nurse: [...] size is normal. Radiopharmaceutical: Tc-99m Camera Used: Herborium GroupSPECNyxoah Radiopharmaceutical: Tc-99m Camera Used: Herborium GroupSPECT Image Protocol Protocol: Rest/Stress 1 Day Rest [...] Date: 02/18/2023 8:50 AM Patient Status: Inpatient Covering And Lining Supervisor: Aravind Wright, ROGELIO, Davide Mims, RT (N), Hayden Mendieta R.T.(N), ROGELIO Exam Type: NM MYOCARDIAL PERFUSION MULTI SPECT Study Info Indications - Chest pain/anginal equiv, high CAD risk, not treadmill candidate Attending Physician: [facility] Nuclear Physician: Inessa Rao MD [id number] Primary Nurse: Sandar Sweeney RN Secondary Nurse: Yolie Turner RN [...] size is normal. Radiopharmaceutical: Tc-99m Camera Used: [employer] Radiopharmaceutical: Tc-99m Camera Used: Herborium GroupSPECT Image Protocol Protocol: Rest/Stress 1 Day Rest [...] perfusion imaging study (more content not included)... [facility] Study observation (narrative)OhioTriHealth Bethes[facility] North HospitaloponinOrdered By: Robin Odom on 94-85-8596Ccrqv Difference Troponin T-1 ng/L< = -/+ 7 change OhioHealthInterp Troponin T Delta ChangeProbable non-acute cardiac injury or late presentation of acute injury.[facility] HospitalInterpretation and review of laboratory resultsAbnormalOhioHealthTroponin T19 ng/LCritically highNINF - 14 ng/LOhioHealthOhioHealthTroponinon 01-05-4245Jxctoq Troponin T Delta ChangeDelta troponin requires at least 3 hours between collections.OhioHealthInterpretation and review of laboratory resultsAbnormalOhioHealthTroponin T18 ng/LCritically highNINF - 14 ng/LOhioHealthOhioHealthTroponin x 2 (Now and Repeat in 3 hours)on 28-25-5801Wlhzv Difference Troponin T-2 ng/L< = -/+ 7 changeOhioHealthInterp Troponin T Delta ChangeProbable non-acute cardiac injury or late presentation of acute injury.CaliforniaHealthInterpretation and review of laboratory resultsAbnormal OhioHealthTroponin T18 ng/LCritically highNINF - 14 ng/LOhioHealthOhioHealthCBC Auto Differentialon 06-59-1209Qndpxsfvj (Bld) [#/Vol]0.07 10*3/uLOhioHealth Basophils/100 WBC (Bld)0.8 %OhioHealthEosinophils [...] 2. Chronic and incidental findings as above. Jenn Rykert/[facility] Workstation ID: [id number] RISEXAMINATION: CT CHEST ABDOMEN [...] Musculoskeletal: No acute or suspicious osseous findings. [employer] Bridger Preciado MD - 02/17/2023 EXAMINATION: CT [...] findings as above. DEEPA/mkv Workstation ID: [id number] [facility] HospitalRadiology Study observation (narrative)[facility] Chest Abdomen Pelvis Without ContrastOrdered By: Bridger Webb on 41-08-4069TguyYdlfay Work Phone: ct Head Or Brain Without Contraston 02-17-2023 1. No acute intracranial abnormality. Workstation ID: [id number] RISEXAMINATION: CT OF THE BRAIN. HISTORY: dizziness COMPARISON: Head CT most recently 06/11/2022 at [facility] TECHNIQUE: Axial CT images were acquired from [...] COMPARISON: Head CT most recently 06/11/2022 at [facility] TECHNIQUE: Axial CT images were acquired from [...] No acute intracranial abnormality. Workstation ID: [id number] [facility] HospitalRadiology Study observation (narrative)OhioHealthCT Head Or Brain Without ContrastOrdered By: Andrew Martin on 59-29-5172OnzjOrhsgb Work Phone: Comprehensive metabolic 2000 panelon 43-93-0360Tacrzmd [Mass/Vol]3.8 g/dL3.2 - 5.2 g/dLOhioHealthALP [Catalytic activity/Vol]134 [...] using the 2020 CKD-EPI creatinine equation.Glucose [Mass/Vol]347 mg/gCJecg18 - 99 mg/dLOhioHealthHCO3 [Moles/Vol] 23 mmol/L21 - 32 mmol/LOhioHealthInterpretation and review of laboratory results AbnormalOhioHealthPotassium [Moles/Vol]4.3 mmol/L3.5 - 5.1 mmol/LOhioHealth Protein [Mass/Vol]6.7 g/dL6.0 - 8.0 g/dLOhioHealthSodium [Moles/Vol]135 mmol/L 135 - 145 mmol/LOhioHealthUrea nitrogen [Mass/Vol]14 mg/dL8 - 25 mg/dLOhioHealth Urea nitrogen/Creatinine [Mass ratio]14.0 mg/mg10.0 - 20.0OhioGal[facility] has implemented the eGFR calculation approach that does not have a coefficient for race that conforms to the NKF-ASN Task Force Recommendations.[facility] HospitalECG 12 Leadon 53-11-3543Qymtwcezdefwix and review of laboratory resultsAbnormalOhiAKHayde Lundberg DO 02/18/2023 12:40 AM ECG 12 Lead Date/Time: 02/17/2023 9:36 PM Performed by: Hayde Pickering DO Authorized by: Hayde Pickering DO Interpreted by ED attending physician Comparison: compared with previous ECG Rhythm: sinus rhythm BPM: 96 Other findings: LELA Clinical impression: abnormal ECGMUSEOhioHealthLipaseon 24-21-5680Jrjbvw [Catalytic activity/Vol]35 U/L15 - 65 U/LOhioHealthLipase [Catalytic activity/Vol]on 18-98-6252Pvxgcsfxtbkbrj and review of laboratory resultsNormal [facility] HospitalNo Panel Informationon 57-63-8231Bjvcc TubeHold for add-ons.[facility] Comment on above:Auto resulted.OhioOhio Valley Surgical HospitalOhioHealthTroponin x 2 (Now and Repeat in 3 hours)Ordered By: Zainab Echeverria on 62-29-0641Swjecipkgbpqji and review of laboratory resultsAbnormalOhioHealthTroponin T20 ng/LCritically highNINF - 14 ng/LOhioHealthTroponin T InterpretationPossible acute cardiac injury.[facility] HospitalUrinalysisOrdered By: Kendra Bae on 19-51-0486Grgtbgjf Auto Ql (U) None SeenNone Seen /hpfOhioHealthBilirubin [...] are present they are quantified by microscopic examination.[facility] HospitalioOhio Valley Surgical HospitalXR Chest 1 Viewon 02-17-2023 Low lung [...] crowding. No airspace consolidation. Workstation ID: [id number] [facility] HospitalRadiology Study observation (narrative)[facility] HospitalXR Chest 1 View Ordered By: Elvis Mae on 18-78-8309KxxgNnizwm Work Phone: cb AUTO DIFFon 79-95-3336SACT #0.1 103/ulNormal 0.0-0.1The St. Vincent HospitalComment on above:Performed By: #### CBC ####[facility] [address] [place], [place] [address]CvMarisDevin Suresh Basophils/100 WBC (Bld)0.6 %Normal0.2-2.0The St. Vincent HospitalComment on above: Performed By: #### CBC ####[facility] Ifpvmdofzm[address] [place], [place] [address]Dr.Yilan ChangEO #0.2 103/ulNormal0.0-0.7The [facility] HospitalComment on above:Performed By: #### CBC ####[facility] [address] [place], [place] [address]Dr.Tishlan ChangEosinophils/100 WBC (Bld)1.8 %Normal0.9-7.0The [facility]ho[facility] HospitalComment on above:Performed By: #### CBC ####[facility] Tzzgpmxylw[address] [place], [place] [address]Dr.Tishlan ChangErythrocyte distribution width (RBC) [Ratio]12.0 %Normal 11.0-15.0The St. Vincent HospitalComment on above:Performed By: #### CBC ####[facility] Poarnmexqt[address] [place], [place] [address]Dr. Tishlan ChangHematocrit (Bld) [Volume fraction]28.3 %Critically low36.0-48.0The St. Vincent HospitalComment on above:Performed By: #### CBC ####[facility] Ntcweentkj[address] [place], [place] [address]Dr.Devin ChangHemoglobin (Bld) [Mass/Vol]9.5 g/dLCritically low12.0-16.0The St. Vincent HospitalComment on above:Performed By: #### CBC ####[facility] Oogbwytuys[address] [place], [place] [address]Dr.Yilan ChangIG #0.05 10e3/ulCritically high0.00-0.[address] [facility] HospitalComment on above:Performed By: #### CBC ####[facility] H[address] [place], [place] [address]Dr.Yilan ChangIG % 0.6 %Critically high0.0-0.5The St. Vincent HospitalComment on above:Performed By: #### CBC ####[facility] Oqvqoecand[address] [place], [place] [address]Dr.Yilan ChangLYMPH #1.9 103/ulNormal1.2-3.8The St. Vincent HospitalComment on above:Performed By: #### CBC ####[facility] [address] [place] [address]Dr.Devin SureshLymphocytes/100 WBC (Bld)20.4 % Critically low20.5-60.0The St. Vincent HospitalComment on above:Performed By: #### CBC ####[facility] Cdfvolvkxx[address] [place], [place] [address]Dr. Devin SureshMANUAL DIFF REQNONormalThe St. Vincent HospitalComment on above: Performed By: #### CBC ####[facility] M[address]ducufwf[address] [place], [place] [address]Dr.Devin SureshH (RBC) [Entitic mass]30.6 pgNormal 26.7-34.0The St. Vincent HospitalComment on above:Performed By: #### CBC ####[facility] [address]zum[address] [place], [place] [address]Dr. Devin SureshHC (RBC) [Mass/Vol]33.6 g/xLCvzlsl24.9-35.2The [facility] Comment on above:Performed By: #### CBC ####[facility] Aryvynlw[address] [place], [place] [address]Dr.Devin SureshMCV (RBC) [Entitic vol]91.3 fL Vbohmg92.0-99.0The St. Vincent HospitalComment on above:Performed By: #### CBC ####[facility] Ilhnucwqnd[address] [place], [place] [address]Dr. Devin SureshMONO #0.6 103/ulNormal0.3-0.8The St. Vincent HospitalComment on above: Performed By: #### CBC ####[facility] Hdarxqmxvh[address] [place], [place] [address]Dr.Devin SureshMonocytes/100 WBC (Bld)7.1 %Normal 1.7-12.0The St. Vincent HospitalComment on above:Performed By: #### CBC ####[facility] Megadkovln[address] [place], [place] [address]Dr. Tishemily SureshNEUT #6.3 103/ulNormal1.4-6.5The St. Vincent HospitalComment on above: Performed By: #### CBC ####[facility] [address]el[address] [place], [place] [address]Dr.Devin SureshNeutrophils/100 WBC (Bld)69.5 %Normal 43.0-75.0The St. Vincent HospitalComment on above:Performed By: #### CBC ####[facility] [address]iuskpkw[address] [place], [place] [address]Dr. Devin SureshPlatelet mean volume (Bld) [Entitic vol]9.5 fLNormal9.5-13.5The [facility]ho[facility] HospitalComment on above:Performed By: #### CBC ####[facility] Ppqxqgxxkv[address] [place], [place] [address]Dr.Tishemily SureshDvfhmBAI977 103/ul Akrekv594-333Zcf St. Vincent HospitalComment on above:Performed By: #### CBC ####[facility] Fcdkqxkrka[address] [place], [place] [address]Dr. Devin SureshRBC3.10 106/ulCritically low4.20-5.40The St. [facility] HospitalComment on above:Performed By: #### CBC ####[facility] Gcgcugprnj[address] [place], [place] [address]Dr.Tishemily SureshWBC9.1 103/ulNormal4.0-11.0The St. [facility] HospitalComment on above:Performed By: #### CBC ####[facility] Ituozpmicw[address] [place], [place] [address]Dr.Devin SureshCT FOOT RT WO CONon 37-24-2514UI FOOT RT WO CONNormalThe St. Vincent HospitalDRUG SCREEN RAPID (URINE)on 87-03-5822MLDZomxuukpNzjpmcWYKKITVLSwe Bellevue HospitalComment on above:Performed By: #### DRUGRPD ####[facility] M[address]fpksq[address] [place], [place] [address]Dr. Devin SureshBARNegativeNormalNEGATIVELima Memorial HospitalComment on above:Performed By: #### DRUGRPD ####[facility] Mp[address]stwyem[address] [place], [place] [address]Dr. Devin SureshBUPNegative NormalNEGATIVELima Memorial HospitalComment on above:Performed By: #### DRUGRPD ####[facility] [address]qvvshpv[address] [place], [place] [address]Dr. Devin SureshBZONegativeNormalNEGATIVELima Memorial HospitalComment on above: Performed By: #### DRUGRPD ####[facility] Wfvznkbxdf[address] [place], [place] [address]Dr. Devin SureshCOCNegativeNormalNEGATIVELima Memorial HospitalComment on above:Performed By: #### DRUGRPD ####[facility] Qromkgvnix[address] [place], [place] [address]Dr. Devin SureshCUT-OFFSE Crystal Clinic Orthopedic CenterComment on above:Result Comment: AMP (Amphetamine): 500ng/mL, BAR (Barbituates): 200 ng/mL, BZO (Benzodiazepines): 15 0 ng/mL, BUP (Buprenorphine): 10 ng/mL, KATHY (Cocaine): 150 ng/mL, mAMP (Methamphetamine): 500 ng/mL, MTD (Methadone): 200 ng/mL, OPI (Opiates): 100 ng/mL, OXY (Oxycodone): 100 ng/mL, PCP (Phencyclidine): 25 ng/mL, PPX (Propoxyphene): 300 ng/mL, THC (Cannabinoids): 50 ng/mL, TCA (Trycyclic Antidepressants): 300 ng/mLPerformed By: #### DRUGRPD ####[facility] [address]vivneev[address] [place], [place] [address]Dr. Devin SureshDRUG CUT HEADERDRUG CLASS TEST SYSTEM CUT-OFF CONCENTRATIONS ARE FOLLOWS:NormalThe St. Vincent HospitalComment on above:Performed By: #### DRUGRPD ####[facility] [address]fpgzqtyjw[address] [place], [place] [address]Dr. Devin SureshmAMP NegativeNormalNEGATIVELima Memorial HospitalComment on above:Performed By: #### DRUGRPD ####[facility] Hhzrtctvls[address] [place], [place] [address]Dr. Devin SureshMTDNegativeNormalNEGATIVEThe [facility] Kay HospitalComment on above:Performed By: #### DRUGRPD ####[facility] Ppryxadppo[address] [place] [address]Dr. Yilan ChangOPINegativeNormalNEGATIVETuscarawas Hospital HospitalComment on above:Performed By: #### DRUGRPD ####[facility] Fykvhzvxcj[address] [place] [address]Dr. Yilan ChangOXYNegative NormalNEGATIVETuscarawas Hospital HospitalComment on above:Performed By: #### DRUGRPD ####[facility] Jtnzhofnth[address] [place] [address]Dr. Yilan ChangPCPNegativeNormalNEGATIVETuscarawas Hospital HospitalComment on above: Performed By: #### DRUGRPD ####[facility] Uvkvfnaqga[address] [place], [place] [address]Dr. Yilan ChangPPXNegativeNormalNEGATIVETuscarawas Hospital HospitalComment on above:Performed By: #### DRUGRPD ####[facility] Khjyvrhfld[address] [place], [place] [address]Dr. Yilan ChangTCAPositive AbnormalNEGATIVELima Memorial HospitalComment on above:Performed By: #### DRUGRPD ####[facility] Etndzoygcc8410[address] [place], [place] [address]Dr. Yilan ChangTHCNegativeNormalNEGATIVELima Memorial HospitalComment on above: Performed By: #### DRUGRPD ####[facility] Qqxcpreepo5240[address] [place], [place] [address]Dr. Yilan [facility] GLUCOSEon 10-22-2022 Glucose [Mass/Vol]400 mg/dLCritically wlvx99-141NjhLima Memorial HospitalComment on above:Performed By: #### POCGLUC ####[facility] Qrepsqayde685[address] [place], [place] [address]Dr. Yilan ChangGlucose [Mass/Vol]284 mg/dLCritically oumf95-833KysLima Memorial HospitalComment on above:Performed By: #### POCGLUC ####[facility] Wcpcfuupbc710[address] [place], [place] [address]Dr. Yilan ChangGlucose [Mass/Vol]161 mg/dLCritically rrgz04-366Hfi [facility] Comment on above:Performed By: #### POCGLUC ####[facility] Ortcfammdx2724[address] [place], [place] [address]Dr. Yilan ChangGlucose [Mass/Vol]283 mg/dL Critically rivu70-946Sdo St[facility] HospitalComment on above:Performed By: #### POCGLUC ####[facility] Ajxpafruqr189971 [address] [place], [place] [address]Dr. Yilan ChangGlucose [Mass/Vol]316 mg/dLCritically ylfm49-419Rye [facility] HospitalComment on above:Performed By: #### POCGLUC ####[facility] Vwcfkjgcaj5916[address] [place], [place] [address]Dr. Yilan ChangPROF 14(COMP METB)on 30-87-1805Ofjhzqb [Mass/Vol]2.4 g/dLCritically low3.4-5.0The St[facility] HospitalComment on above:Performed By: #### CMP ####[facility] Bedpjmfurc020471 [address] [place], [place] [address]Dr.Devin Suresh Albumin/Globulin [Mass ratio]0.6 {ratio}NormalThe St. Vincent HospitalComment on above:Performed By: #### CMP ####[facility] Jbkqsqgmkl838[address] [place], [place] [address]Dr.Yilan ChangALP [Catalytic activity/Vol]115 U/L Iocpdx18-517Jiq St[facility] HospitalComment on above:Performed By: #### CMP ####[facility] Ypowbgejkv6760[address] [place], [place] [address]Dr. Yilan ChangALT [Catalytic activity/Vol]17 U/UJyifou33-45Dof [facility] Comment on above:Performed By: #### CMP ####[facility] Ldfcnixkzr211471 [address] [place], [place] [address]Dr.Yilan ChangAnion gap [Moles/Vol]12.2 mmol/LNormalThe St. [facility] HospitalComment on above:Performed By: #### CMP ####[facility] Uzzlzshnld095[address] [place], [place] [address]Dr. Yilan ChangAST [Catalytic activity/Vol]15 U/FOrnlhy73-05Ioi [facility] Comment on above:Performed By: #### CMP ####[facility] Vplcalffil9589[address] [place], [place] [address]Dr.Yiemily ChangBilirubin [Mass/Vol]0.3 mg/dL Normal0.2-1.0The [facility] HospitalComment on above:Performed By: #### CMP ####[facility] Wylaqknnta908671 [address] [place], [place] [address]Dr. Yilan ChangCalcium [Mass/Vol]8.6 mg/dLNormal8.5-10.1The [facility] HospitalComment on above:Performed By: #### CMP ####[facility] Ddfdudzeqv467[address] [place], [place] [address]Dr.Yilan ChangChloride [Moles/Vol]104 mmol/LNormal 98-107The [facility] HospitalComment on above:Performed By: #### CMP ####[facility] Rmqfwnkruc49[address] [place], [place] [address]Dr.Yilan ChangCO2 [Moles/Vol]25.7 mmol/SEdetmf12.0-32.0The [facility] HospitalComment on above: Performed By: #### CMP ####[facility] Bmjtxiajxl8670[address] [place], [place] [address]Dr.Yiemily ChangCreatinine [Mass/Vol]1.17 mg/dL Critically high0.55-1.02The [facility] HospitalComment on above:Performed By: #### CMP ####[facility] Nrsddfspon4832[address] [place], [place] [address]Dr.Yilan ChangEGFR-AF NIUEAN>60Normal>=60The [facility] HospitalComment on above:Performed By: #### CMP ####[facility] Lvwxuvbfto724[address] [place], [place] [address]Dr.Yilan ChangEGFR-NON AF ZZHOLHRA60 mL/min/1.73m2 Critically low>=60The [facility] HospitalComment on above:Performed By: #### CMP ####[facility] Xplhqvrckj4640[address] [place], [place] [address]Dr. Yilan ChangGlobulin (S) [Mass/Vol]4.1 g/dLNormParkview HealthComment on above:Performed By: #### CMP ####[facility] Fcpfcvtfku833[address] [place], [place] [address]Dr.Yilan ChangGlucose [Mass/Vol]262 mg/dLCritically whyq70-580Fbj [facility] HospitalComment on above:Performed By: #### CMP ####[facility] Wsjlpkepnp287[address] [place], [place] [address]Dr. Yilan ChangPotassium [Moles/Vol]3.9 mmol/LNormal3.5-5.1The [facility] Comment on above:Performed By: #### CMP ####[facility] Wugrdhzgyt792971 [address] [place], [place] [address]Dr.Yilan ChangProtein [Mass/Vol]6.5 g/dL Normal6.4-8.2The [facility] HospitalComment on above:Performed By: #### CMP ####[facility] Jdcjcflusk739171 [address] [place], [place] [address]Dr. Yilan ChangSodium [Moles/Vol]138 mmol/QJfjbsm919-450Yuo [facility] HospitalComment on above:Performed By: #### CMP ####[facility] Zeeaplqipv2948[address] [place], [place] [address]Dr.Yilan ChangUrea nitrogen [Mass/Vol]23.0 mg/dL Critically high7.0-18.0The [facility] HospitalComment on above:Performed By: #### CMP ####[facility] Fqzpbuomoc199271 [address] [place], [place] [address]Dr. Yilan ChangUrea nitrogen/Creatinine [Mass ratio]19.7 mg/mgNoRegional Medical CenterComment on above:Performed By: #### CMP ####[facility] Dkfmxqxtgq739[address] [place], [place] [address]Dr.Yilan ChangACETONE SERUMon 31-73-9072POGSLLAKbgspmevZstkmjNIHSPUXTJnf St. [facility] HospitalComment on above: Performed By: #### ACETON ####[facility] Irdrdfvegq511[address] [place], [place] [address]Dr. Devin SureshCBC AUTO DIFFon 09-31-5222WBSV #0.1 103/ulNormal0.0-0.1The [facility] HospitalComment on above:Performed By: #### CBC ####[facility] U[address]wxagjpj[address] [place] [address]Dr. Devin ChangBasophils/100 WBC (Bld)0.4 %Normal0.2-2.0The [facility] HospitalComment on above:Performed By: #### CBC ####[facility] Cjwpbfjovk24[address] [place] [address]Dr.Tishlan ChangEO #0.2 103/ulNormal0.0-0.7The [facility] HospitalComment on above:Performed By: #### CBC ####[facility] Uoyyxnmvwa026[address] [place] [address]Dr.Devin ChangEosinophils/100 WBC (Bld)1.1 %Normal0.9-7.0The [facility] HospitalComment on above:Performed By: #### CBC ####[facility] Zgyssgqvff1649[address] [place], [place] [address]Dr.Devin ChangErythrocyte distribution width (RBC) [Ratio]12.0 %Normal 11.0-15.0The [facility] Hospitalment on above:Performed By: #### CBC ####[facility] Wmhjtjalsb636[address] [place], [place] [address]Dr. Devin ChangHematocrit (Bld) [Volume fraction]34.1 %Critically low36.0-48.0The [facility] HospitalComment on above:Performed By: #### CBC ####[facility] Mpiaszmxmq3223[address] [place], [place] [address]Dr.Devin ChangHemoglobin (Bld) [Mass/Vol]11.4 g/dLCritically low12.0-16.0The [facility] HospitalComment on above:Performed By: #### CBC ####[facility] Loiwamjcxf623[address] [place], [place] [address]Dr.Devin ChangIG #0.05 10e3/ulCritically high0.00-0.[address] [facility] HospitalComment on above:Performed By: #### CBC ####[facility] Egezqmyzpq20[address] [place] [address]Dr.Devin SureshIG % 0.4 %Normal0.0-0.5The [facility] HospitalComment on above:Performed By: #### CBC ####[facility] Xkhawgxwhp305[address] [place], [place] [address]Dr. Devin SureshLYMPH #1.6 103/ulNormal1.2-3.8The [facility] HospitalComment on above: Performed By: #### CBC ####[facility] Mxavkvfoxe894171 [address] [place], [place] [address]Dr.Devin SureshLymphocytes/100 WBC (Bld)11.9 % Critically low20.5-60.0The [facility] HospitalComment on above:Performed By: #### CBC ####[facility] Xsvnxxteji0833[address] [place], [place] [address]Dr. Devin SureshMANUAL DIFF REQNONormalThe St. [facility] HospitalComment on above: Performed By: #### CBC ####[facility] Trksnpoaxr0425[address] [place], [place] [address]Dr.Devin SureshH (RBC) [Entitic mass]30.5 pgNormal 26.7-34.0The [facility] HospitalComment on above:Performed By: #### CBC ####[facility] Zbwzzzfila530[address] [place], [place] [address]Dr. Devin KerwinHC (RBC) [Mass/Vol]33.4 g/qJTeiecu37.9-35.2The [facility] Comment on above:Performed By: #### CBC ####[facility] Unmhorasbo471871 [address] [place], [place] [address]Dr.Devin KerwinV (RBC) [Entitic vol]91.2 fL Sgboan37.0-99.0The [facility] HospitalComment on above:Performed By: #### CBC ####[facility] Lwunaficqe1649[address] [place], [place] [address]Dr. Devin SureshMONO #0.7 103/ulNormal0.3-0.8The [facility] HospitalComment on above: Performed By: #### CBC ####[facility] Adluouhhne[address] [place] [address]Dr.Tishlan ChangMonocytes/100 WBC (Bld)5.4 %Normal 1.7-12.0The [facility] HospitalComment on above:Performed By: #### CBC ####[facility] Eiwmmmlvpu139571 [address] [place], [place] [address]Dr. Yilan ChangNEUT #11.0 103/ulCritically high1.4-6.5The [facility]hoit HospitalComment on above:Performed By: #### CBC ####[facility] Criutqkdsg3009[address] [place], [place] [address]Dr.Yilan ChangNeutrophils/100 WBC (Bld)80.8 % Critically high43.0-75.0The [facility] HospitalComment on above:Performed By: #### CBC ####[facility] Lnhinyocwe464[address] [place], [place] [address]Dr. Yilan ChangPlatelet mean volume (Bld) [Entitic vol]9.1 fLCritically low9.5-13.[address] [facility] HospitalComment on above:Performed By: #### CBC ####[facility] Ghjxbsmqqp3360[address] [place], [place] [address]Dr.Yilan PheocWZD418 103/luNwlzmt157-956Drj [facility] HospitalComment on above:Performed By: #### CBC ####[facility] Ydyprhgaie537271 [address] [place], [place] [address]Dr. Yilan ChangRBC3.74 106/ulCritically low4.20-5.40The [facility] HospitalComment on above:Performed By: #### CBC ####[facility] Whcfcpyrmn358671 [address] [place], [place] [address]Dr.Yilan VbcwrGRV39.6 103/ulCritically high4.0-11.0The [facility] HospitalComment on above:Performed By: #### CBC ####[facility] Dycrnfnwxf634[address] [place], [place] [address]Dr.Yilan ChangCRPon 03-88-7628JPB62.8 mg/dLCritically high<=1.0The [facility] HospitalComment on above:Performed By: #### CMP, CRP ####[facility] Hueoerouoi9260[address] [place], [place] [address]Dr. Devin ChangLACTATE/LACTIC ACIDon 13-28-2343Sahjqof [Moles/Vol]1.6 mmol/LNormal0.4-2.0The [facility] HospitalComment on above: Performed By: #### LACT ####[facility] Kzxzkrargl788[address] [place], [place] [address]Dr. Devin ChangPH VENOUS BLOODon 06-27-3711ZIY3 VENOUS 49.5 zhQrSbklsa91.0-52.0The [facility] HospitalComment on above:Performed By: #### PHVEN ####[facility] Tztwwytijq495[address] [place], [place] [address]Dr. Devin ChangpH VENOUS7.257Hvvgft2.330-7.430The [facility] HospitalComment on above:Performed By: #### PHVEN ####[facility] Talnntauth666[address] [place], [place] [address]Dr. Devin ChangPOINT OF CARE GLUCOSEon 10-21-2022 Glucose [Mass/Vol]151 mg/dLCritically damd70-040Sez St[facility] HospitalComment on above:Performed By: #### POCGLUC ####[facility] Mpvoffrdex633[address] [place], [place] [address]Dr. Devin ChangPROF 14(COMP METB)on 96-35-6972Hzlgekz [Mass/Vol]3.1 g/dLCritically low3.4-5.0The [facility] HospitalComment on above: Performed By: #### CMP, CRP ####[facility] Bnjhdszthv496[address] [place], [place] [address]Dr. Devin SureshAlbumin/Globulin [Mass ratio]0.6 {ratio}NormalThe St. [facility] HospitalComment on above:Performed By: #### CMP, CRP ####[facility] Tlspamqmuz0067[address] [place], [place] [address]Dr. Yilan ChangALP [Catalytic activity/Vol]132 U/LCritically haym47-826Obc [facility] HospitalComment on above:Performed By: #### CMP, CRP ####[facility] Udrdqoxbrm2967[address] [place], [place] [address]Dr. Yilan ChangALT [Catalytic activity/Vol]20 U/SWyoahg51-07Rti [facility] HospitalComment on above:Performed By: #### CMP, CRP ####[facility] Ihfimwxcha5024[address] [place], [place] [address]Dr. Yilan ChangAnion gap [Moles/Vol]14.4 mmol/LNormalThe St. [facility] HospitalComment on above:Performed By: #### CMP, CRP ####[facility] Vxkscjtteq564971 [address] [place], [place] [address]Dr. Yilan ChangAST [Catalytic activity/Vol]20 U/KRkzhmk77-59Cxx [facility] HospitalComment on above:Performed By: #### CMP, CRP ####[facility] Tkhnoydrln803871 [address] [place], [place] [address]Dr. Yilan ChangBilirubin [Mass/Vol]0.3 mg/dLNormal0.2-1.0The [facility] HospitalComment on above:Performed By: #### CMP, CRP ####[facility] Ubmzjbfwiq353[address] [place], [place] [address]Dr. Yilan ChangCalcium [Mass/Vol]9.2 mg/dLNormal8.5-10.1The [facility] HospitalComment on above:Performed By: #### CMP, CRP ####[facility] Yggiibqptg284071 [address] [place], [place] [address]Dr. Yilan ChangChloride [Moles/Vol]101 mmol/LNormal 98-107The [facility] HospitalComment on above:Performed By: #### CMP, CRP ####[facility] Vqzpnyxlue4540[address] [place], [place] [address]Dr. Yilan ChangCO2 [Moles/Vol]26.6 mmol/GXjakyn29.0-32.0The [facility] HospitalComment on above:Performed By: #### CMP, CRP ####[facility] Sgjdbigpja524[address] [place], [place] [address]Dr. Yilan ChangCreatinine [Mass/Vol]1.34 mg/dL Critically high0.55-1.02The [facility] HospitalComment on above:Performed By: #### CMP, CRP ####[facility] Etnavtqdms2845[address] [place], [place] [address]Dr. Yilan ChangEGFR-AF PSSFVNAH68 mL/min/1.70i5Jenkamopbp low>=60The [facility] HospitalComment on above:Performed By: #### CMP, CRP ####[facility] Hlykgoekxq216[address] [place], [place] [address]Dr. Yilan ChangEGFR- NON AF ZZUGWJZO54 mL/min/1.77g4Psvcijeptm low>=60The [facility] HospitalComment on above:Performed By: #### CMP, CRP ####[facility] Guttxardfx51987[address] [place], [place] [address]Dr. Yilan ChangGlobulin (S) [Mass/Vol]4.9 g/dL NormalThe St. [facility] HospitalComment on above:Performed By: #### CMP, CRP ####[facility] Ntweohmiqc1090[address] [place], [place] [address]Dr. Yilan ChangGlucose [Mass/Vol]210 mg/dLCritically moqt63-867Dgp [facility] Comment on above:Performed By: #### CMP, CRP ####[facility] Sizxjjdekv964[address] [place], [place] [address]Dr. Yilan ChangPotassium [Moles/Vol]4.0 mmol/LNormal3.5-5.1The [facility] HospitalComment on above: Performed By: #### CMP, CRP ####[facility] Zdivxptsqf8028[address] [place], [place] [address]Dr. Yilan ChangProtein [Mass/Vol]8.0 g/dLNormal6.4-8.[address] [facility] HospitalComment on above:Performed By: #### CMP, CRP ####[facility] Hxdvcfvghl047[address] [place], [place] [address]Dr. Yilan Suresh Sodium [Moles/Vol]138 mmol/MLvbhxu511-339Okg [facility] HospitalComment on above: Performed By: #### CMP, CRP ####[facility] Vjceabsdfj9[address] [place] [address]Dr. Yilan ChangUrea nitrogen [Mass/Vol]29.0 mg/dL Critically high7.0-18.0The [facility] HospitalComment on above:Performed By: #### CMP, CRP ####[facility] Mvuaufxsrm56[address] [place] [address]Dr. Yilan ChangUrea nitrogen/Creatinine [Mass ratio]21.6 mg/mgNormalThe [facility] HospitalComment on above:Performed By: #### CMP, CRP ####[facility] Nxdsstywwz18[address] [place] [address]Dr. Yilan ChangSED RATE WESTERGRENon 28-39-5089MRU RATE88 mm/hrCritically high<=20The [facility] HospitalComment on above:Performed By: #### SEDR ####[facility] Pvoedcdszv028[address] [place], [place] [address]Dr. Yilan ChangXR ELBOW RT MIN 3 VIEWSon 21-52-0463TX ELBOW RT MIN 3 UK HealthcareXR FOOT RT MIN 3 VIEWSon 64-21-8514TD FOOT RT MIN 3 UK HealthcareBASIC METABOLIC PANELon 16-87-7651Nniek gap [Moles/Vol]14 mmol/LNormal 10-20The [facility] SystemComment on above:Performed By: #### CH8, CRP, MG ####[facility] GXHMSKMUSX4879 [place], [place], Calcium [Mass/Vol]9.1 mg/dLNormal8.4-10.4The [facility] SystemComment on above: Performed By: #### CH8, CRP, MG ####[facility] OGVOUHJRFE2154 [place], [address]Xmxvpygw [Moles/Vol]104 mmol/YEyzvvt99-558Crm [facility] SystemComment on above:Performed By: #### CH8, CRP, MG ####[facility] ZMFBCECHKO9353 [place], [address]QD2 [Moles/Vol]27 mmol/BPzllzj30-55Onz [facility] CenterroHealth SystemComment on above:Performed By: #### MARSHALL, CRP, MG ####[facility] JKDESXBGLK4234 [place], [address]Ezpckwmneq [Mass/Vol]0.90 mg/dLNormal0.50-1.10The [facility] SystemComment on above:Performed By: #### MARSHALL, CRP, MG ####S PATHOLOGY SAEJOKXDKD1536 [place], [address]PRSONEBHH GFR (CKD-EPI)80 mL/min/1.73sqmNormal>=60The [facility] SystemComment on above: Result Comment: 2020 CKD [...] Med 1 Vol. 385 Issue 19 Pages 8699-8957Performed By: #### MARSHALL, CRP, MG ####S PATHOLOGY HWEBVMFGDV4658 [place], [place], Glucose [Mass/Vol]82 mg/iCLdedbw79-816Wzg [facility] SystemComment on above:Performed By: #### MARSHALL, CRP, MG ####[facility] RQRDXVDLIE8234 [place], [address]Pzntgpkji [Moles/Vol]3.6 mmol/LNormal 3.3-5.3The [facility] SystemComment on above:Performed By: #### MARSHALL, CRP, MG ####[facility] PLICSCAFSR9781 [place], [place], Sodium [Moles/Vol]141 mmol/IJhzmmi221-117Uus [facility] CenterHealth SystemComment on above: Performed By: #### MARSHALL, CRP, MG ####S PATHOLOGY PBZYFFOCFR[address] [place] [address], [address]Nnjh nitrogen [Mass/Vol]18 mg/dLNormal8-22The [facility] CenterHealth SystemComment on above:Performed By: #### CH8, CRP, MG ####[facility] PATHOLOGY AHKEUAVWVG[address] [place] [address], [address]H-VGDCZTGC PROTEINon 82-34-2249LLG4.8 mg/dLHigh<0.8The [facility] SystemComment on above: Performed By: #### CH8, CRP, MG ####[facility] PATHOLOGY FLLQUVSFPK[address] [place] [address], [address]KNR WITH DIFFERENTIALon 12-29-8145Zzpgaqvyd (Bld) [#/Vol]0.11 10*3/uLNormal0.00-0.20The [facility] SystemComment on above: Performed By: #### CBCDSAT, ESR ####[facility] PATHOLOGY ZNRKWZMSBQ[address] [place] [address], [address]Vhbvhhcgm/100 WBC (Bld)0.9 %Normal<=1.9The [facility] SystemComment on above:Performed By: #### CBCDSAT, ESR ####[facility] PATHOLOGY JZZLVDNVYM[address] [place] [address], [address]Xpxhzgizinx (Bld) [#/Vol]0.23 10*3/uLNormal0.00-0.70The [facility] SystemComment on above: Performed By: #### CBCDSAT, ESR ####S PATHOLOGY ZNOEQXRHCB5310[address] [place] [address], [address]Wzmszxcitoy/100 WBC (Bld)1.9 %Normal0.1-4.0The [facility] SystemComment on above:Performed By: #### CBCDSAT, ESR ####S PATHOLOGY AQFHQDHICX7210[address] [place] [address], [address]Sdgammizowt distribution width (RBC) [Ratio]12.6 %Vqohyw47.5-14.5The [facility] System Comment on above:Performed By: #### CBCDSAT, ESR ####[facility] WBJSSMUIQX6224[address] [place] [address], [address]Sruxjsqjrs (Bld) [Volume fraction]37.9 %Ayfjex43.0-46.0The [facility] CenterroHealth SystemComment on above: Performed By: #### CBCDSAT, ESR ####[facility] PATHOLOGY GWYSTWOROC[address] [place] [address], [address]Labwvbjpwl (Bld) [Mass/Vol]12.6 g/dLNormal 12.0-15.0The [facility] CenterroHealth SystemComment on above:Performed By: #### CBCDSAT, ESR ####[facility] PATHOLOGY OMWYSKVYYH84[address] [place] [address], Lymphocytes (Bld) [#/Vol]3.20 10*3/uLNormal1.00-4.80The [facility] Centerro[facility] System Comment on above:Performed By: #### CBCDSAT, ESR ####[facility] PATHOLOGY LLCPGFYBKO1365[address] [place] [address], [address]Anbngvxwirp/100 WBC (Bld)26.2 %Vxmtzs58.0-44.0The [facility] SystemComment on above:Performed By: #### CBCDSAT, ESR ####[facility] PATHOLOGY HTUTGXYFJP[address] [place] [address], [address]HXE (RBC) [Entitic mass]30.1 ibVnqwyt70.0-34.0The [facility] SystemComment on above:Performed By: #### CBCDSAT, ESR ####[facility] PATHOLOGY KUFUIPIGWH[address] [place] [address], [address]IXET (RBC) [Mass/Vol] 33.2 g/xNLieczt43.0-35.9The [facility] SystemComment on above:Performed By: #### CBCDSAT, ESR ####[facility] PATHOLOGY PPLNGSQCLZ[address] [place] [address], [address]DRH (RBC) [Entitic vol]91 zRFluvlc03-987Qay [facility] Centerro[facility] System Comment on above:Performed By: #### CBCDSAT, ESR ####[facility] PATHOLOGY RIUHCAGFWT[address] [place] [address], [address]RZTVFOOU DISTRIBUTION JRFMU29Bpsq<=20The [facility] CenterroHealth SystemComment on above:Performed By: #### RANDY, ESR ####[facility] PATHOLOGY SOXSCTBOLD[address] [place] [address], [address]Atfpiapbx (Bld) [#/Vol]0.62 10*3/uLNormal0.20-1.00The [facility] CenterroHealth SystemComment on above:Performed By: #### CBCSAMYAT, ESR ####[facility] PATHOLOGY WYTDWUILFU[address] [place] [address], [address]Hkrkagixp/100 WBC (Bld) 5.1 %Normal2.0-11.0The [facility] CenterroHealth SystemComment on above:Performed By: #### RANDY, ESR ####[facility] PATHOLOGY OFMSHSOZIC[address] [place] [address], [address]Afzzluacllr (Bld) [#/Vol]8.05 10*3/uLHigh1.50-8.00The [facility] CenterHealth SystemComment on above:Performed By: #### CBCDINO, ESR ####[facility] PATHOLOGY GHPYGXFAAV[address] [place] [address], [address]Hhwaljyqtff/100 WBC (Bld)66.0 %Tzijbo23.0-76.0The [facility] SystemComment on above:Performed By: #### RANDY, ESR ####[facility] [id number] [place] [address], [phone] mean volume (Bld) [Entitic vol]7.3 fLLow7.5-11.2The [facility] CenterHealth SystemComment on above:Performed By: #### CBCSAMYAT, ESR ####[facility] [id number] [place] [address], [phone] (Bld) [#/Vol]380 10*3/cDZicuty807-379O[facility] CenterHealth SystemComment on above: Performed By: #### CBCSAMYAT, ESR ####[facility] [id number] [place] [address], [phone] (Bld) [#/Vol]4.18 10*6/uLNormal4.00-5.20The [facility] SystemComment on above:Performed By: #### CBCDSAT, ESR ####[facility] [id number] [place], [address]CVP (Bld) [#/Vol]12.2 10*3/uLHigh4.5-11.5The [facility] SystemComment on above:Performed By: #### CBCDSAT, ESR ####[facility] [id number] [place], [address]NG C-SPINE W/ CONTRASTon 55-48-0378EV C-SPINE W/ CONTRASTEXAMINATION: CT C-SPINE W/ CONTRAST [...] bulging without neural foraminal narrowing. MACRO: NoneNormalThe [facility] CenterroOhio [facility] SystemCT Cervical spine W contrast [place] 15-96-8372GLBWOKDZSDO: CT C-SPINE W/ CONTRAST 10/07/2022 04:29 AM [...] bulging without neural foraminal narrowing. MACRO: None [facility] Cervical spine W contrast IVOrdered By: Kwaku Herman on 77-40-0049DjwigRcwlzy Work Phone: ct T-SPINE/L-SPINE W/ CONTRASTon 99-64-1019HP T-SPINE/L-SPINE W/ CONTRASTEXAMINATION: CT T-SPINE/L-SPINE W/ CONTRAST [...] central canal stenosis or nerve impingement. MACRO: [facility] SystemCT Thoracic and lumbar spine W contrast [place] 56-17-7689TQQNLOOHECR: CT T-SPINE/L-SPINE W/ CONTRAST 10/07/2022 04:29 AM [...] canal stenosis or nerve impingement. MACRO: None [facility] CenterroOhio [facility] Surgical HospitalMetroHealthConsultson 35-97-1583Dghjrjzyjyyve Authentication Interface Message TextSPINE TRAUMA H AND [...] CT L spine myelogram in 2016 at [facility] significant for mild L4/5 foraminal stenosis. Antiplatelet/Anticoagulant: [...] Ortho Trauma Team A: Courtney Jessica PGY1 ([phone]) Jacob Lo PGY3 ([phone]) After 5pm, weekends, and holidays please page Ortho consult pager, [phone] NormalThe [facility] SystemED Provider Noteson 46-08-0518Onptcaojnilxd Authentication Interface Message Text ED RESIDENT CONTINUATION [...] diabetes mellitus with diabetic neuropathy, unspecified whether fci insulin use (HCC) [E11.40] Disposition: Home The [...] Brown, Rotating Resident, PGY-1NormalThe [facility] SystemERYTHROCYTE SEDIMENTATION RATEon 59-72-1944MAM (Bld) [Velocity]48 mm/hHigh<=30The [facility] System Comment on above:Performed By: #### CBCDSAT, ESR ####[facility] [id number] [place], [address]JJXSCBJTCvv 10-07-2022 Magnesium [Mass/Vol]1.4 mg/dLLow1.6-2.8The [facility] SystemComment on above: Performed By: #### CH8, CRP, MG ####[facility] [id number] [place], [address]Gp Panel Informationon 66-74-3273Mwbbodoan Study observation (narrative)MetroHealthPROTHROMBIN TIME AND INRon 28-20-9757NGO Coag (PPP) [Relative time]1.12 {INR}High0.90-1.10The [facility] SystemComment on above:Performed By: #### PT #### [facility] [address] [place], [address]WI Coag (PPP) [Time]12.6 sNormal9.7-12.9The [facility] SystemComment on above:Performed By: #### PT #### [facility] [address] [place], [address]WRE Coag (PPP) [Relative time]1.12 {INR}High0.90 - 1.10 MetroHealthInterpretation and review of laboratory resultsAbnormalMetroHealthPT Coag (PPP) [Time]12.6 sMetroHealthMetroHealthTYPE AND SCREENon 97-51-0219JNU and Rh group Nom (Bld)Blood group A Rh(D) positiveMetroHealthABO and Rh group Nom (Bld)No Previous ResultsMetroHealthBlood group antibody screen QlNegative MetroHealthMetroHealthABO and Rh group Nom (Bld)Blood group A Rh(D) positive NormalThe MetroHealth SystemComment on above:Performed By: #### TS #### S PATHOLOGY LABORATORY [address] [place] [address], [phone] and Rh group Nom (Bld)No Previous ResultsNormalThe MetroHealth SystemComment on above:Performed By: #### TS #### S PATHOLOGY LABORATORY [address] [place] [address], [address]KGAO INTNegativeNormalThe MetroHealth SystemComment on above:Performed By: #### TS #### S PATHOLOGY LABORATORY [address] [place] [address], [address]Nbsdx metabolic 2000 panelon 25-14-8568Cgjlt gap [Moles/Vol]14 mmol/L10 - 20MetroHealthCalcium [Mass/Vol]9.1 mg/dL8.4 [...] Med 1 Vol. 385 Issue 19 Pages [phone] Glucose [Mass/Vol]82 mg/dL68 - 110 mg/dLMetroHealthInterpretation and review of laboratory resultsNormalMetroHealthPotassium [Moles/Vol]3.6 mmol/L3.3 - 5.3 mmol/LMetroHealthSodium [Moles/Vol]141 mmol/L135 - 148 mmol/LMetroHealthUrea nitrogen [Mass/Vol]18 mg/dL8 - 22 mg/dLMetroHealthC-REACTIVE PROTEINon 57-34-8907REF [Mass/Vol]0.8 mg/dLHighNINF - 0.8 mg/dLMetroHealthCBC WITH DIFFERENTIALon 56-14-4691Cxpuewxcs (Bld) [#/Vol]0.11 10*3/uL0.00 - 0.20 K/uL MetroHealthBasophils/100 [...] 11.5 K/uL MetroHealthMetroHealthCHEMISTRYOrdered By: SYSTEM SYSTEM on 34-03-3315Aesgimq [Mass/Vol]3.5 g/dLNormal3.3 - 5.0 gm/dLFTMC RemisolAlbumin/Globulin [Mass ratio] 0.9 {ratio}Low1.1 - 2.2FTMC RemisolALP [Catalytic activity/Vol]94 [iU]/eSkdnzy32 - 98 Int._Unit/LFTMC RemisolALT No additional P-5'-P [Catalytic activity/Vol]12 [iU]/dNormal6 - 46 Int._Unit/LFTMC RemisolAnion gap [Moles/Vol]15 mmol/LNormal6 - 16 mEq/LFTMC RemisolAST [Catalytic activity/Vol]14 [iU]/dNormal5 - 43 Int._Unit/LFTMC RemisolBilirubin [Mass/Vol]0.5 mg/dLNormal0.0 - 1.1 mg/dLFTMC RemisolCalcium [Mass/Vol]9.0 mg/dLNormal8.9 - 11.1 mg/dLFTMC RemisolChloride [Moles/Vol]102 mmol/MHhmufk207 - 111 mmol/LFTMC RemisolCO2 [Moles/Vol]24 mmol/L Blqyiu22 - 31 mmol/LFTMC RemisolCreatinine [Mass/Vol]1.0 mg/dLNormal0.5 - 1.3 mg/dLFTMC RemisolGFR/1.73 sq M.predicted among non-blacks MDRD (S/P/Bld) [Vol rate/Area]71 mL/min/1.73 q1Ggcqey>=59mL/min/1.73 m2FT Chem SGlobulin (S) [Mass/Vol]3.8 g/dLNormal1.4 - 4.0 gm/dLFT RemisolGlucose [Mass/Vol]223 mg/dL High55 - 199 mg/dLFT RemisolPotassium [Moles/Vol]3.7 mmol/LNormal3.5 - 5.3 mmol/LFTMC RemisolProtein [Mass/Vol]7.3 g/dLNormal6.0 - 7.8 gm/dLFT Remisol Sodium [Moles/Vol]137 mmol/CEjnfgo782 - 145 mmol/LFTMC RemisolUrea nitrogen [Mass/Vol]20 mg/dLNormal5 - 21 mg/dLOKLAHOMA HOSPITAL ASS[facility]IATION RemisolUrea nitrogen/Creatinine [Mass ratio]20 mg/kfZbzwpo22 - 20FT RemisolCHEMISTRYOrdered By: Lab ROPUser on 46-70-9352Nwbndxf [Mass/Vol]229 mg/uNAspz95 - 99 mg/dLOKLAHOMA HOSPITAL ASSOCIATION POC SubsectionComment on above:Result Comment: Notified RN/YESSY Device [id number] Interpretation CodeFT POC SubsectionPOC User [id number] Interpretation CodeFT POC SubsectionPOC UsernameReynold BURCIAGAid Interpretation Code FT POC SubsectionED Provider Noteson 97-71-2375Zekzeisdliapl Authentication Interface Message Text Attestation with edits by Jocelyn Bowen MD at 10/07/2022 5:51 PM ATTENDING NOTE Patient transferred for MRI for concern cauda equina. Signed out at 2300 awaiting spine eval and discussion with or [employer] regarding device compatibility. I saw and evaluated [...] Complaint Patient presents with Chart Transfer from [facility] for MRI Family Intervention Specialist: not needed - patient preferred language is Palauan. The history is provided by the Patient. Addie Jean Baptiste is a 47 year old female PMH DM2 c/b severe diabetic neuropathy, retention, hypothyroidism, bipolar presenting to the ED for lower extremity weakness and incontinence. Patient was transferred from [facility] for concerns of cauda equina syndrome. [...] to CT myelogram Discussion with External Provider: Code Enforcement Supervisor from spine service recommends MRI or CT myelogram. Negative CT myelogram - recommend to follow up outpatient Discussion with External Provider: Code Enforcement Supervisor from IR service recommends CT myelogram as cardiology cannot interrogate pacemaker due to another emergent procedure. Secondary Considerations / Diagnoses Addressed During this Visit: DM assessed and could be contributing to patient's weakness from neuropathy. Evaluated (more content not included)...NormalThe [facility] SystemERYTHROCYTE SEDIMENTATION RATEon 58-26-5531CZC (Bld) [Velocity]48 mm/hHMonroe Community Hospital Interpretation and review of laboratory resultsAbnormalMetroCorey Hospital HEMATOLOGYOrdered By: SYSTEM SYSTEM on 13-70-1626Spqrmlqqx/100 WBC (Bld)0.5 % Normal0.0 - 2.0 %[facility] HemeAutoSSBasophils/Leukocytes Auto (Bld) [Pure # fraction]0.1 E9/LNormal0.0 - 0.2 E9/LFTMC HemeAutoSSEosinophils/100 WBC (Bld)1.1 %Normal0.0 - 8.0 %[facility] HemeAutoSSEosinophils/Leukocytes Auto (Bld) [Pure # fraction]0.1 E9/LNormal0.0 - 0.5 E9/LFTMC HemeAutoSSLymphocytes/100 WBC (Bld) 16.5 %Wslyrb10.0 - 50.0 %[facility] HemeAutoSSLymphocytes/Leukocytes Auto (Bld) [Pure # fraction]1.9 E9/LNormal1.0 - 4.0 E9/LFTMC HemeAutoSSMonocytes/100 WBC (Bld)4.7 %Normal4.0 - 14.0 %[facility] HemeAutoSSMonocytes/Leukocytes Auto (Bld) [Pure # fraction]0.6 E9/LNormal0.2 - 1.0 E9/LFTMC HemeAutoSSNeutrophils/100 WBC (Bld) 77.2 %High36.0 - 75.0 %[facility] HemeAutoSSNeutrophils/Leukocytes Auto (Bld) [Pure # fraction]9.1 E9/LHigh2.0 - 7.5 E9/LFTMC HemeAutoSSHEMATOLOGYOrdered By: Yolie Cuellar on 46-25-0229Rgfraisjwcu distribution width (RBC) [Ratio]12.6 %Byflmf89.9 - 14.2 %[facility] HemeAutoSSHematocrit (Bld) [Volume fraction]37.9 %Wpgldu57.0 - 46.0 %[facility] HemeAutoSSHemoglobin (Bld) [Mass/Vol]12.7 g/dIMxzwkj96.0 - 16.0 gm/dLFTMC HemeAutoSSMCH (RBC) [Entitic mass]30.3 saRyprxt25.0 - 34.0 pgFTMC HemeAutoSSMCHC (RBC) [Mass/Vol]33.5 g/bRIleniy47.4 - 36.0 gm/dLFTMC HemeAutoSSMCV (RBC) [Entitic vol]90.5 aFZvwixa61.0 - 100.0 fLFTMC HemeAutoSSPlatelet mean volume (Bld) [Entitic vol]6.8 fLNormal6.4 - 10.8 fLFTMC HemeAutoSSPlatelets (Bld) [#/Vol]332.0 E9/QHzrgvz873.0 - 500.0 E9/LFTMC HemeAutoSSRBC (Bld) [#/Vol]4.2 E12/LLow4.3 - 5.9 E12/LFTMC HemeAutoSSWBC corrected for nucl RBC Auto (Bld) [#/Vol]11.8 E9/LHigh4.0 - 11.0 E9/LFTMC HemeAutoSSMAGNESIUMon 10-06-2022 Magnesium [Mass/Vol]1.4 mg/dLLow1.6 - 2.8 mg/dLMetroHealthNo Panel Informationon 27-51-4539Yqdewanqafnuvj and review of laboratory resultsAbnormalMetroHealth MetroHealthXR KUB 1 VIEWon 59-24-7257OK KUB 1 [facility] CHEMISTRYOrdered By: Desi Lord on 64-16-6626Tqflwwe [Mass/Vol]166 mg/vRVeuu92 - 99 mg/dLFTMC POC SubsectionComment on above:Result Comment: Notified RN/MDPOC Device [id number] Interpretation CodeFTMC POC SubsectionPOC User ID [id number] Interpretation CodeFTMC POC SubsectionPOC UsernameBMichi millsInvalid Interpretation CodeFTMC POC SubsectionGlucose [Mass/Vol]172 mg/dL High55 - 99 mg/dLFTMC POC SubsectionComment on above:Result Comment: Notified RN/MDPOC Device [id number] Interpretation CodeFTMC POC SubsectionPOC User [id number] Interpretation CodeFTMC POC SubsectionPOC Username Michi HuynhInvalid Interpretation CodeFTMC POC SubsectionCHEMISTRYOrdered By: SYSTEM SYSTEM on 60-84-7290Rgavo gap [Moles/Vol]10 mmol/LNormal6 - 16 mEq/L [facility] RemisolChloride [Moles/Vol]105 mmol/EMoyvkf442 - 111 mmol/LFTMC RemisolCO2 [Moles/Vol]27 mmol/LPrmptv95 - 31 mmol/LFTMC RemisolPotassium [Moles/Vol]4.8 mmol/LNormal3.5 - 5.3 mmol/LFTMC RemisolSodium [Moles/Vol]137 mmol/ABdfror156 - 145 mmol/LFTMC RemisolCHEMISTRYOrdered By: Lab Pop on 29-77-0839Vlxldfj [Mass/Vol]219 mg/oTQdje26 - 99 mg/dLFTMC POC SubsectionComment on above:Result Comment: Cleaned MeterPOC Device [id number] Interpretation CodeFTMC POC SubsectionPOC User [id number] Interpretation CodeFTMC POC Subsection POC UsernameFCIERA CHISHOLMMARLEYInvalid Interpretation CodeFTMC POC SubsectionCHEMISTRY Ordered By: Elizabeth Vinson on 39-92-4756ZbS0p (Bld) [Mass fraction]9.4 %High<=5.9% [facility] ChemAutoSSCHEMISTRYOrdered By: SYSTEM SYSTEM on 23-09-4852Gjyjx gap [Moles/Vol]8 mmol/LNormal6 - 16 mEq/LFTMC RemisolCalcium [Mass/Vol]8.0 mg/dLLow 8.9 - 11.1 mg/dLFTMC RemisolChloride [Moles/Vol]108 mmol/HOvuyrm559 - 111 mmol/L [facility] RemisolCO2 [Moles/Vol]26 mmol/DEytvdi91 - 31 mmol/LFTMC RemisolCreatinine [Mass/Vol]1.1 mg/dLNormal0.5 - 1.3 mg/dLFTMC RemisolGFR/1.73 sq M.predicted among blacks MDRD (S/P/Bld) [Vol rate/Area]mL/min/1.73 h9Ehczsb>=59mL/min/1.73 m2FTMC Chem SGFR/1.73 sq M.predicted among non-blacks MDRD (S/P/Bld) [Vol rate/Area]54 mL/min/1.73 m2Low>=59mL/min/1.73 m2FTMC Chem SGlucose [Mass/Vol]152 mg/tUCgvwdk36 - 199 mg/dLFTMC RemisolPotassium [Moles/Vol]4.2 mmol/LNormal3.5 - 5.3 mmol/LFTMC RemisolSodium [Moles/Vol]138 mmol/TAtctbc316 - 145 mmol/LFTMC RemisolUrea nitrogen [Mass/Vol]27 mg/dLHigh5 - 21 mg/dLFTMC RemisolUrea nitrogen/Creatinine [Mass ratio]24 mg/ynBkqg06 - 20FTMC RemisolHEMATOLOGYOrdered By: VC VISION SYSTEM on 93-72-0059Fmbotjzso/100 WBC (Bld)0.8 %Normal0.0 - 2.0 %[facility] HemeAutoSSBasophils/Leukocytes Auto (Bld) [Pure # fraction]0.1 E9/LNormal0.0 - 0.2 E9/LFTMC HemeAutoSSEosinophils/100 WBC (Bld)2.3 %Normal0.0 - 8.0 %[facility] HemeAutoSSEosinophils/Leukocytes Auto (Bld) [Pure # fraction]0.2 E9/LNormal0.0 - 0.5 E9/LFTMC HemeAutoSSLymphocytes/100 WBC (Bld)29.8 %Dvvzzg60.0 - 50.0 %[facility] HemeAutoSSLymphocytes/Leukocytes Auto (Bld) [Pure # fraction]2.4 E9/LNormal1.0 - 4.0 E9/LFTMC HemeAutoSSMonocytes/100 WBC (Bld)6.7 %Normal4.0 - 14.0 %[facility] HemeAutoSSMonocytes/Leukocytes Auto (Bld) [Pure # fraction]0.5 E9/LNormal0.2 - 1.0 E9/LFTMC HemeAutoSSNeutrophils/100 WBC (Bld)60.4 %Wmgtmj00.0 - 75.0 %[facility] HemeAutoSSNeutrophils/Leukocytes Auto (Bld) [Pure # fraction]4.8 E9/LNormal2.0 - 7.5 E9/LFTMC HemeAutoSSHEMATOLOGYOrdered By: Mansi Cortez on 09-14-2022 Erythrocyte distribution width (RBC) [Ratio]13.3 %Wwvcmb11.9 - 14.2 %[facility] HemeAutoSSHematocrit (Bld) [Volume fraction]32.5 %Low34.0 - 46.0 %[facility] HemeAutoSSHemoglobin (Bld) [Mass/Vol]10.9 g/dLLow12.0 - 16.0 gm/dLFTMC HemeAutoSSMCH (RBC) [Entitic mass]31.0 ydFzummq88.0 - 34.0 pgFTMC HemeAutoSSMCHC (RBC) [Mass/Vol]33.6 g/bYKxamup85.4 - 36.0 gm/dLFTMC HemeAutoSSMCV (RBC) [Entitic vol]92.3 wYZxobgy06.0 - 100.0 fLFTMC HemeAutoSSPlatelet mean volume (Bld) [Entitic vol]7.0 fLNormal6.4 - 10.8 fLFTMC HemeAutoSSPlatelets (Bld) [#/Vol]325.0 E9/FNlfrfl771.0 - 500.0 E9/LFTMC HemeAutoSSRBC (Bld) [#/Vol]3.5 E12/LLow4.3 - 5.9 E12/LFTMC HemeAutoSSWBC corrected for nucl RBC Auto (Bld) [#/Vol]8.0 E9/LNormal4.0 - 11.0 E9/LFTMC HemeAutoSSCHEMISTRYOrdered By: SYSTEM SYSTEM on 17-76-4472Dhneq gap [Moles/Vol]11 mmol/LNormal6 - 16 mEq/LFTMC Remisol Calcium [Mass/Vol]8.3 mg/dLLow8.9 - 11.1 mg/dLFTMC RemisolChloride [Moles/Vol] 105 mmol/HCfeodd565 - 111 mmol/LFTMC RemisolCK [Catalytic activity/Vol]43 [iU]/d Mctgqc96 - 261 Int._Unit/LFTMC RemisolCO2 [Moles/Vol]25 mmol/EAeparu50 - 31 mmol/LFTMC RemisolCreatinine [Mass/Vol]1.3 mg/dLNormal0.5 - 1.3 mg/dLFTMC RemisolGFR/1.73 sq M.predicted among blacks MDRD (S/P/Bld) [Vol rate/Area]54 mL/min/1.73 m2Low>=59mL/min/1.73 m2FTMC Chem SGFR/1.73 sq M.predicted among non- blacks MDRD (S/P/Bld) [Vol rate/Area]44 mL/min/1.73 m2Low>=59mL/min/1.73 m2FTMC Chem SGlucose [Mass/Vol]98 mg/pQXsdeni11 - 199 mg/dLFTMC RemisolPotassium [Moles/Vol]4.3 mmol/LNormal3.5 - 5.3 mmol/LFTMC RemisolSodium [Moles/Vol]137 mmol/ZYtpzav611 - 145 mmol/LFTMC RemisolUrea nitrogen [Mass/Vol]26 mg/dLHigh5 - 21 mg/dLFTMC RemisolUrea nitrogen/Creatinine [Mass ratio]20 mg/akRusjek26 - 20 [facility] RemisolLactate [Mass/Vol]1.0 mmol/LNormal0.5 - 2.2 mmol/LFTMC Remisol HEMATOLOGYOrdered By: VC VISION SYSTEM on 71-59-0509Gnmhchqbf/100 WBC (Bld)0.4 % Normal0.0 - 2.0 %[facility] HemeAutoSSBasophils/Leukocytes Auto (Bld) [Pure # fraction]0.0 E9/LNormal0.0 - 0.2 E9/LFTMC HemeAutoSSEosinophils/100 WBC (Bld)1.1 %Normal0.0 - 8.0 %[facility] HemeAutoSSEosinophils/Leukocytes Auto (Bld) [Pure # fraction]0.1 E9/LNormal0.0 - 0.5 E9/LFTMC HemeAutoSSLymphocytes/100 WBC (Bld) 17.6 %Swbzih66.0 - 50.0 %[facility] HemeAutoSSLymphocytes/Leukocytes Auto (Bld) [Pure # fraction]1.6 E9/LNormal1.0 - 4.0 E9/LFTMC HemeAutoSSMonocytes/100 WBC (Bld)6.2 %Normal4.0 - 14.0 %[facility] HemeAutoSSMonocytes/Leukocytes Auto (Bld) [Pure # fraction]0.6 E9/LNormal0.2 - 1.0 E9/LFTMC HemeAutoSSNeutrophils/100 WBC (Bld) 74.7 %Wcggqu99.0 - 75.0 %[facility] HemeAutoSSNeutrophils/Leukocytes Auto (Bld) [Pure # fraction]6.9 E9/LNormal2.0 - 7.5 E9/LFTMC HemeAutoSSHEMATOLOGYOrdered By: Mansi Cortez on 44-03-6190Ogrytmpuygm distribution width (RBC) [Ratio]13.5 % Jkjgla65.9 - 14.2 %[facility] HemeAutoSSHematocrit (Bld) [Volume fraction]32.0 %Low 34.0 - 46.0 %[facility] HemeAutoSSHemoglobin (Bld) [Mass/Vol]10.8 g/dLLow12.0 - 16.0 gm/dLFTMC HemeAutoSSMCH (RBC) [Entitic mass]30.7 ncYpawzw18.0 - 34.0 pgFTMC HemeAutoSSMCHC (RBC) [Mass/Vol]33.7 g/zVPxuwyd53.4 - 36.0 gm/dLFTMC HemeAutoSS MCV (RBC) [Entitic vol]91.1 tFIiadil25.0 - 100.0 fLFTMC HemeAutoSSPlatelet mean volume (Bld) [Entitic vol]7.0 fLNormal6.4 - 10.8 fLFTMC HemeAutoSSPlatelets (Bld) [#/Vol]335.0 E9/GEemqkv988.0 - 500.0 E9/LFTMC HemeAutoSSRBC (Bld) [#/Vol] 3.5 E12/LLow4.3 - 5.9 E12/LFTMC HemeAutoSSWBC corrected for nucl RBC Auto (Bld) [#/Vol]9.3 E9/LNormal4.0 - 11.0 E9/LFTMC HemeAutoSSCHEMISTRYOrdered By: SYSTEM SYSTEM on 39-27-0199Zdvddep [Mass/Vol]3.5 g/dLNormal3.3 - 5.0 gm/dLFTMC Remisol Albumin/Globulin [Mass ratio]1.0 {ratio}Low1.1 - 2.2[facility] RemisolALP [Catalytic activity/Vol]98 [iU]/aRmxoxr91 - 98 Int._Unit/LFTMC RemisolALT No additional P-5'-P [Catalytic activity/Vol]12 [iU]/dNormal6 - 46 Int._Unit/LFTMC RemisolAST [Catalytic activity/Vol]12 [iU]/dNormal5 - 43 Int._Unit/LFTMC RemisolBilirubin [Mass/Vol]0.7 mg/dLNormal0.0 - 1.1 mg/dLFTMC RemisolCalcium [Mass/Vol]9.0 mg/dL Normal8.9 - 11.1 mg/dLFTMC RemisolCreatinine [Mass/Vol]0.9 mg/dLNormal0.5 - 1.3 mg/dLFTMC RemisolGFR/1.73 sq M.predicted among blacks MDRD (S/P/Bld) [Vol rate/Area]mL/min/1.73 q0Tudrtb>=59mL/min/1.73 m2FT Chem SGFR/1.73 sq M.predicted among non-blacks MDRD (S/P/Bld) [Vol rate/Area]mL/min/1.73 q9Ornmqz >=59mL/min/1.73 m2FT Chem SGlobulin (S) [Mass/Vol]3.6 g/dLNormal1.4 - 4.0 gm/dLFTMC RemisolGlucose [Mass/Vol]405 mg/jCDncy77 - 199 mg/dLFT Remisol Lactate [Mass/Vol]1.2 mmol/LNormal0.5 - 2.2 mmol/LFTMC RemisolProtein [Mass/Vol] 7.1 g/dLNormal6.0 - 7.8 gm/dLFTMC RemisolTroponin I.cardiac [Mass/Vol]5.20 pg/mL Low10.10 - 27.10 pg/mLFT RemisolUrea nitrogen [Mass/Vol]22 mg/dLHigh5 - 21 mg/dLFTMC RemisolUrea nitrogen/Creatinine [Mass ratio]24 mg/kyVnxx53 - 20[facility] RemisolCOAGULATIONOrdered By: Glynn Bryant on 41-68-0619bSPR Coag (PPP) [Time] 31.1 oXibkqp52.1 - 36.5 second(s)[facility] Auto CoagINR Coag (PPP) [Relative time]1.0 {INR}Invalid Interpretation CodeFT Auto CoagPT Coag (PPP) [Time]11.7 sNormal 9.4 - 12.5 second(s)[facility] Auto CoagGlucose Glucometer (BldC) [Mass/Vol]Ordered By: Shameka Romero on 54-00-5902Jnjnmfc [Mass/Vol]459 mg/dLCorey HospitalComment on above:Random Glucose Reference Range is dependent on time and content of last meal. Glucose of more than 200 mg/dL in a nonstressed, ambulatory subject supports the diagnosis of Diabetes Mellitus. HEMATOLOGYOrdered By: SYSTEM SYSTEM on 98-57-4515Prpxvbsuw/100 WBC (Bld)1.0 % Normal0.0 - 2.0 %[facility] HemeAutoSSBasophils/Leukocytes Auto (Bld) [Pure # fraction]0.1 E9/LNormal0.0 - 0.2 E9/LFTMC HemeAutoSSEosinophils/100 WBC (Bld)1.5 %Normal0.0 - 8.0 %[facility] HemeAutoSSEosinophils/Leukocytes Auto (Bld) [Pure # fraction]0.1 E9/LNormal0.0 - 0.5 E9/LFTMC HemeAutoSSLymphocytes/100 WBC (Bld) 21.4 %Mfcfzs98.0 - 50.0 %[facility] HemeAutoSSLymphocytes/Leukocytes Auto (Bld) [Pure # fraction]2.1 E9/LNormal1.0 - 4.0 E9/LFT[facility] HemeAutoSSMonocytes/100 WBC (Bld)4.8 %Normal4.0 - 14.0 %[facility] HemeAutoSSMonocytes/Leukocytes Auto (Bld) [Pure # fraction]0.5 E9/LNormal0.2 - 1.0 E9/LFTMC HemeAutoSSNeutrophils/100 WBC (Bld) 71.3 %Yakely81.0 - 75.0 %[facility] HemeAutoSSNeutrophils/Leukocytes Auto (Bld) [Pure # fraction]7.1 E9/LNormal2.0 - 7.5 E9/LFTMC HemeAutoSSHEMATOLOGYOrdered By: Mansi Cortez on 55-25-8639Lvrimghpkhc distribution width (RBC) [Ratio]13.5 % Qnxhhb39.9 - 14.2 %[facility] HemeAutoSSHematocrit (Bld) [Volume fraction]35.4 %Normal 34.0 - 46.0 %[facility] HemeAutoSSHemoglobin (Bld) [Mass/Vol]11.7 g/dLLow12.0 - 16.0 gm/dLFTMC HemeAutoSSMCH (RBC) [Entitic mass]30.5 nkIuxtbx31.0 - 34.0 pgFTMC HemeAutoSSMCHC (RBC) [Mass/Vol]33.0 g/oYNzcyuk87.4 - 36.0 gm/dLFTMC HemeAutoSS MCV (RBC) [Entitic vol]92.4 sZOrxvhf84.0 - 100.0 fLFT HemeAutoSSPlatelet mean volume (Bld) [Entitic vol]6.9 fLNormal6.4 - 10.8 fLOKLAHOMA HOSPITAL ASSOCIATION HemeAutoSSPlatelets (Bld) [#/Vol]317.0 E9/JExfztc062.0 - 500.0 E9/[facility] HemeAutoSSRBC (Bld) [#/Vol] 3.8 E12/LLow4.3 - 5.9 E12/[facility] HemeAutoSSWBC corrected for nucl RBC Auto (Bld) [#/Vol]9.9 E9/LNormal4.0 - 11.0 E9/[facility] HemeAutoSSNo Panel InformationOrdered By: ANGPROCESSSERVER MICROBIOLOGY on [id number] Culture CharcoalNo growth at 3 days. Final to follow at 7 days.[facility] HospitalBlood [facility] CharcoalNo growth at 3 days. Final to follow at 7 days.[facility] HospitalNo Panel InformationOrdered By: Shameka Romero on [id number] Glucose #[address] CenterBedside Glucose CommentGlu2: cleaned [facility] HospitalCHEMISTRY Ordered By: SYSTEM SYSTEM on [id number] [Mass/Vol]3.9 g/dLNormal3.3 - 5.0 gm/dLFTMC RemisolAlbumin/Globulin [Mass [...] mmol/LNormal 101 - 111 mmol/LFTMC RemisolCO2 [Moles/Vol]22 mmol/XUtfsbw46 - 31 mmol/LFTMC RemisolCreatinine [Mass/Vol]1.0 mg/dLNormal0.5 - 1.3 mg/dLFTMC RemisolGFR/1.73 sq M.predicted among blacks MDRD (S/P/Bld) [Vol rate/Area]mL/min/1.73 z8Qwnxha >=59mL/min/1.73 m2[facility] Chem SGFR/1.73 sq M.predicted among non-blacks MDRD (S/P/Bld) [Vol rate/Area]60 mL/min/1.73 g5Qmjkij>=59mL/min/1.73 m2[facility] Chem S Globulin (S) [Mass/Vol]3.9 g/dLNormal1.4 - 4.0 gm/dLFTMC RemisolGlucose [Mass/Vol]178 mg/aQQllxki51 - 199 mg/dLFTMC RemisolPotassium [Moles/Vol]3.7 mmol/LNormal3.5 - 5.3 mmol/LFTMC RemisolProtein [Mass/Vol]7.8 g/dLNormal6.0 - 7.8 gm/dLFTMC RemisolSodium [Moles/Vol]136 mmol/WNtlvkv485 - 145 mmol/LFTMC RemisolUrea nitrogen [Mass/Vol]17 mg/dLNormal5 - 21 mg/dLFTMC RemisolUrea nitrogen/Creatinine [Mass ratio]17 mg/hgGgahyk88 - 20[facility] RemisolHEMATOLOGY Ordered By: SYSTEM SYSTEM on [id number]/100 WBC (Bld)1.0 %Normal0.0 - 2.0 %[facility] HemeAutoSSBasophils/Leukocytes Auto (Bld) [Pure # fraction]0.1 E9/L Normal0.0 - 0.2 E9/LFTMC HemeAutoSSEosinophils/100 WBC (Bld)1.2 %Normal0.0 - 8.0 %[facility] HemeAutoSSEosinophils/Leukocytes Auto (Bld) [Pure # fraction]0.1 E9/L Normal0.0 - 0.5 E9/LFTMC HemeAutoSSLymphocytes/100 WBC (Bld)20.1 %Rltuhz00.0 - 50.0 %[facility] HemeAutoSSLymphocytes/Leukocytes Auto (Bld) [Pure # fraction]2.1 E9/L Normal1.0 - 4.0 E9/LFTMC HemeAutoSSMonocytes/100 WBC (Bld)4.6 %Normal4.0 - 14.0 %[facility] HemeAutoSSMonocytes/Leukocytes Auto (Bld) [Pure # fraction]0.5 E9/LNormal 0.2 - 1.0 E9/LFTMC HemeAutoSSNeutrophils/100 WBC (Bld)73.1 %Hllhfr13.0 - 75.0 % [facility] HemeAutoSSNeutrophils/Leukocytes Auto (Bld) [Pure # fraction]7.7 E9/LHigh 2.0 - 7.5 E9/LFTMC HemeAutoSSHEMATOLOGYOrdered By: Mansi Cortez on 08-29-2022 Erythrocyte distribution width (RBC) [Ratio]14.1 %Uqmgwv68.9 - 14.2 %[facility] HemeAutoSSHematocrit (Bld) [Volume fraction]37.6 %Ogygfk60.0 - 46.0 %[facility] HemeAutoSSHemoglobin (Bld) [Mass/Vol]12.4 g/jPNqnewy49.0 - 16.0 gm/dLFTMC HemeAutoSSMCH (RBC) [Entitic mass]30.4 uiMkuidx04.0 - 34.0 pgFTMC HemeAutoSSMCHC (RBC) [Mass/Vol]33.0 g/eMBqtjxk61.4 - 36.0 gm/dLOKLAHOMA HOSPITAL ASSOCIATION HemeAutoSSMCV (RBC) [Entitic vol]92.1 cAMqjdff18.0 - 100.0 [facility] HemeAutoSSPlatelet mean volume (Bld) [Entitic vol]7.0 fLNormal6.4 - 10.8 [facility] HemeAutoSSPlatelets (Bld) [#/Vol]446.0 E9/BHmdfdi518.0 - 500.0 E9/[facility] HemeAutoSSRBC (Bld) [#/Vol]4.1 E12/LLow4.3 - 5.9 E12/[facility] HemeAutoSSWBC corrected for nucl RBC Auto (Bld) [#/Vol]10.5 E9/LNormal4.0 - 11.0 E9/[facility] HemeAutoSSCalcium [Mass/volume] in Serum or PlasmaOrdered By: Jeana Martini on 47-94-1569Sqxxpdm [Mass/Vol]8.1 mg/dL8.6-10.3FPaulding County HospitalCarbon dioxide, total [Moles/volume] in Serum or PlasmaOrdered By: Jeana Martini on [id number] [Moles/Vol]25.9 mmol/L21.0-31.0[facility] HospitalChloride [Moles/volume] in Serum or PlasmaOrdered By: Jeana Martini on [id number] [Moles/Vol]111 mmol/W15-898AfznkqcakCorey HospitalCreatinine [Mass/volume] in Serum or PlasmaOrdered By: Jeana Martini on 08-22-2022 Creatinine [Mass/Vol]1.22 mg/dL0.60-1.20Corey HospitalGlucose Glucometer (BldC) [Mass/Vol]Ordered By: Jeana Martini on 10-36-3840Xheodhd [Mass/Vol]207 mg/dLCorey HospitalComment on above:Random Glucose Reference Range is dependent on time and content of last meal. Glucose of more than 200 mg/dL in a nonstressed, ambulatory subject supports the diagnosis of Diabetes Mellitus.Glucose [Mass/volume] in Serum or PlasmaOrdered By: Jeana Martini on 97-19-6870Nhzfbau [Mass/Vol]141 mg/aM91-664ClzrhcljxCorey HospitalComment on above:ADA recommended reference rangeRandom Glucose Reference Range is dependent on time and content of last meal. Glucose of more than 200 mg/dL in a nonstressed, ambulatory subject supports the diagnosisof Diabetes Mellitus.Magnesium [Mass/volume] in Serum or PlasmaOrdered By: Jeana Martini on 27-79-1490Asksgkoip [Mass/Vol]1.6 mg/dL1.9-2.7FPaulding County HospitalNo Panel InformationOrdered By: Jeana Martini on 85-85-9469Tbydufe Glucose CommentGlu2: cleaned meterCorey HospitalEstimated GFR (CKD-EPI)55.771 mL/MinCorey Hospital Pharmacy Creatinine Clearance (Chem70.62[facility] Phosphate [Mass/volume] in Serum or PlasmaOrdered By: Jeana Martini on 76-93-1002Zntirjdpu [Mass/Vol]3.8 mg/dL3.7-7.2FPaulding County Hospital Potassium [Moles/volume] in Serum or PlasmaOrdered By: Jeana Martini on 74-26-2181Ieqtbpdag [Moles/Vol]4.0 mmol/L3.5-5.1FUniversity Hospitals Parma Medical Centererum or plasma anion gap determinationOrdered By: Jeana Martini on 17-36-8187Kbolj gap [Moles/Vol]10.1 mmol/L6.0-15.0[facility]opathic Clinicodium [Moles/volume] in Serum or PlasmaOrdered By: Jeana Martini on 62-96-1453Jczfvj [Moles/Vol]143 mmol/X929-566TovcfoqimCorey Hospital Urea nitrogen [Mass/volume] in Serum or PlasmaOrdered By: Jenaa Martini on 23-31-0667Cdno nitrogen [Mass/Vol]20 mg/dL7-25[facility] Basophils Auto (Bld) [#/Vol]Ordered By: Jeana Martini on 54-06-5170Lomrbetii (Bld) [#/Vol]0.1 10*3/uL0.0-0.2FPaulding County HospitalBasophils/100 WBC Auto (Bld)Ordered By: Jeana Martini on 01-19-2404Mupawntcw/100 WBC (Bld)0.8 %.[facility] HospitalEosinophils Auto (Bld) [#/Vol]Ordered By: Jeana Martini on 24-96-1107Vrwuptatkma (Bld) [#/Vol]0.2 10*3/uL0.0-0.45Corey HospitalEosinophils/100 WBC Auto (Bld)Ordered By: Jeana Martini on 07-05-8816Xepbgudoere/100 WBC (Bld)1.8 %.[facility] Erythrocyte distribution width Auto (RBC) [Ratio]Ordered By: Jeana Martini on 73-39-2620Gtmcnbevuud distribution width (RBC) [Ratio]14.5 %11.9-15.3FPaulding County HospitalHematocrit Auto (Bld) [Volume fraction]Ordered By: Jeana Martini on 10-13-0815Smzfhbyefi (Bld) [Volume fraction]31.3 %34.0-46.4FPaulding County HospitalHemoglobin [Mass/volume] in BloodOrdered By: Jeana Martini on 07-56-2676Eyockgzjwn (Bld) [Mass/Vol]10.7 g/dL11.8-15.4FPaulding County HospitalLeukocytes [#/volume] corrected for nucleated erythrocytes in Blood by Automated counOrdered By: Jeana Martini on 08-21-2022 WBC corrected for nucl RBC Auto (Bld) [#/Vol]8.2 10*3/uL3.8-11.6FPaulding County HospitalLymphocytes Auto (Bld) [#/Vol]Ordered By: Jeana Martini on 38-84-3853Yerojfgkoeg (Bld) [#/Vol]1.7 10*3/uL1.00-4.8Corey HospitalLymphocytes/100 WBC Auto (Bld)Ordered By: Jeana Martini on 39-56-0489Camtmvxoapk/100 WBC (Bld)20.6 %.Corey HospitalMCH Auto (RBC) [Entitic mass]Ordered By: Jeana Martini on 29-52-9976QJE (RBC) [Entitic mass]31.5 pg24.7-34.3FPaulding County HospitalMCHC Auto (RBC) [Mass/Vol]Ordered By: Jeana Martini on 28-68-9356COIM (RBC) [Mass/Vol]34.3 g/dL 32.0-35.0Corey HospitalMCV Auto (RBC) [Entitic vol]Ordered By: Jeana Martini on 10-55-7241KGA (RBC) [Entitic vol]91.8 vS21-569YlnxfajlmCorey HospitalMonocytes Auto (Bld) [#/Vol]Ordered By: Jeana Martini on 11-07-4860Mzdqlxkkr (Bld) [#/Vol]0.6 10*3/uL0.0-0.8Corey HospitalMonocytes/100 WBC Auto (Bld)Ordered By: Jeana Martini on 08-21-2022 Monocytes/100 WBC (Bld)7.4 %.Corey HospitalNeutrophils Auto (Bld) [#/Vol]Ordered By: Jeana Martini on 60-36-3985Expipnmmwbk (Bld) [#/Vol]5.7 10*3/uL1.8-7.7FPaulding County HospitalNeutrophils/100 WBC Auto (Bld) Ordered By: Jeana Martini on 63-20-4658Xvicbaznstl/100 WBC (Bld)69.4 %.[facility] HospitalNucleated erythrocytes [Presence] in Blood by Automated countOrdered By: Jeana Martini on 09-34-8977Fxxsfxngu RBC Auto Ql (Bld)0.0 /100{WBC}0-0.5FPaulding County HospitalPlatelet mean volume Auto (Bld) [Entitic vol]Ordered By: Jeana Martini on 22-80-2966Psspqkew mean volume (Bld) [Entitic vol]6.9 fL6.3-10.7FPaulding County HospitalPlatelets Auto (Bld) [#/Vol]Ordered By: Jeana Martini on 27-20-7994Ucewbvquh (Bld) [#/Vol]291 10*3/uL 150-450Corey HospitalRBC Auto (Bld) [#/Vol]Ordered By: Jeana Martini on 66-47-7853HYM (Bld) [#/Vol]3.41 10*6/uL3.60-5.00Corey HospitalWBC Auto (Bld) [#/Vol]Ordered By: Jeana Martini on 81-35-4678CDA (Bld) [#/Vol]8.2 10*3/uL3.8-11.6FPaulding County HospitalActivated partial thromboplastin time (aPTT) in platelet poor plasma by coagulation a Ordered By: Jacob Farfan on 39-07-5830sHNG Coag (PPP) [Time]62.3 s25.1-36.5 Core[facility] HospitalAlanine aminotransferase [Enzymatic activity/volume] in Serum or PlasmaOrdered By: Jacob Farfan on 08-20-2022 ALT [Catalytic activity/Vol]7 U/L7-52Corey HospitalAlbumin [Mass/volume] in Serum or Plasma by Bromocresol green (BCG) dye binding metho Ordered By: Jacob Farfan on 90-11-4131Qqlvoqw BCG dye [Mass/Vol]3.6 g/dL 3.5-5.7FPaulding County HospitalAlkaline phosphatase [Enzymatic activity/volume] in Serum or PlasmaOrdered By: Jacob Farfan on 08-20-2022 ALP [Catalytic activity/Vol]82 U/N69-651WwaghzureCorey Hospital Amphetamine Screen Ql (U)Ordered By: Jacob Farfan on 85-41-8957Wsovhwbywtme Ql (U)NegativeNegativeCorey HospitalAspartate aminotransferase [Enzymatic activity/volume] in Serum or PlasmaOrdered By: Jacob Farfan on 48-72-1236GBE [Catalytic activity/Vol]9 U/T97-44ApjkfnfbjCorey HospitalAutomated erythrocytes count in urine sediment (number/area)Ordered By: Jacob Farfan on 30-73-9908FMR Auto (Urine sed) [#/Area]5-9 [HPF]0-4FPaulding County HospitalAutomated leukocytes count in urine sediment (number/area)Ordered By: Jacob Farfan on 96-74-9795NJH Auto (Urine sed) [#/Area]10-19 [HPF]0-4FPaulding County Hospital Bacterial blood cultureOrdered By: Jeana Martini on 71-17-8877Uadshlfa identified Cx Nom (Bld)NO GROWTH 5 DAYSCorey Hospital Barbiturates [Presence] in Urine by Screen methodOrdered By: Jacob Farfan on 10-45-6522Smyfnofpcttu Screen Ql (U)NegativeNegativeCorey HospitalBasophils Auto (Bld) [#/Vol]Ordered By: Jacob Farfan on 51-86-9740Bnlkhtafa (Bld) [#/Vol]0.1 10*3/uL0.0-0.2FPaulding County HospitalBasophils/100 WBC Auto (Bld)Ordered By: Jacob Farfan on 08-20-2022 Basophils/100 WBC (Bld)0.7 %.[facility]y HospitalBenzodiazepines Screen Ql (U)Ordered By: Jacob Farfan on 63-97-9964Mbssbpmhdivsoio Ql (U) NegativeNegativeCorey HospitalBenzoylecgonine [Presence] in Urine by Screen methodOrdered By: Jacob Farfan on 24-26-4872Gymajizbmlsdlih Screen Ql (U)NegativeNegativeCorey HospitalBilirubin Test strip Ql (U)Ordered By: Jacob Farfan on 39-29-9176Dpqkfdztt Ql (U)Negative NegativeCorey HospitalBilirubin.total [Mass/volume] in Serum or PlasmaOrdered By: Jacob Farfan on 20-56-0031Rapwazkxr [Mass/Vol]0.4 mg/dL0.3-1.0Corey HospitalC reactive protein [Mass/volume] in Serum or PlasmaOrdered By: Jeana Martini on 28-34-9772UTS [Mass/Vol]1.5 mg/dL 0.0-0.5FPaulding County HospitalC reactive protein [Mass/volume] in Serum or PlasmaOrdered By: Jacob Farfan on 59-71-4161ORS [Mass/Vol]1.9 mg/dL0.0-0.5FPaulding County HospitalCalcium [Mass/volume] in Serum or PlasmaOrdered By: Jacob Farfan on 50-26-9923Apykxhm [Mass/Vol]9.2 mg/dL 8.6-10.3FPaulding County HospitalCannabinoids [Presence] in Urine by Screen methodOrdered By: Jacob Farfan on 72-92-6180Zghceoaiennu Screen Ql (U)NegativeNegativeCorey HospitalComment on above:These are unconfirmed results and should not be used for legal purposes. Drug Cut-Off Concentration: AMPH 1000 ng/mL JULIANNA 200 ng/mL ALICE 200 ng/mL COCM 300 ng/mL OP 300 ng/mL PCP 25 ng/mL THC 20 ng/mLCarbon dioxide, total [Moles/volume] in Serum or PlasmaOrdered By: Jacob Farfan on 35-95-0939VB0 [Moles/Vol]28.0 mmol/L 21.0-31.0Corey HospitalChloride [Moles/volume] in Serum or PlasmaOrdered By: Jacob Farfan on 28-45-8324Rtslrnoy [Moles/Vol]105 mmol/L 98-107Corey HospitalColor Auto (U)Ordered By: Jacob Farfan on 37-53-2158Fmwoz (U)YellowYellowCorey Hospital Creatinine [Mass/volume] in Serum or PlasmaOrdered By: Jacob Farfan on 38-95-1976Umvhxrhgrb [Mass/Vol]0.93 mg/dL0.60-1.20Corey HospitalEosinophils Auto (Bld) [#/Vol]Ordered By: Jacob Farfan on 08-20-2022 Eosinophils (Bld) [#/Vol]0.1 10*3/uL0.0-0.45[facility] Eosinophils/100 WBC Auto (Bld)Ordered By: Jacob Farfan on 08-20-2022 Eosinophils/100 WBC (Bld)1.3 %.[facility]y HospitalErythrocyte distribution width Auto (RBC) [Ratio]Ordered By: Jacob Farfan on 08-20-2022 Erythrocyte distribution width (RBC) [Ratio]14.5 %11.9-15.3FPaulding County HospitalErythrocyte sedimentation rate by Photometric methodOrdered By: Jacob Farfan on 47-02-1477BWP Photometric method (Bld) [Velocity]47 mm/hr 0-19Corey HospitalGlobulin Calc (S) [Mass/Vol]Ordered By: Jacob Farfan on 02-34-9256Nlfsokvu (S) [Mass/Vol]2.8 g/dLCorey HospitalGlucose Glucometer (BldC) [Mass/Vol]Ordered By: Jacob Farfan on 65-01-4017Aeybbcn [Mass/Vol]226 mg/dLCorey Hospital Comment on above:Random Glucose Reference Range is dependent on time and content of last meal. Glucose of more than 200 mg/dL in a nonstressed, ambulatory subject supports the diagnosis of Diabetes Mellitus.Glucose [Mass/volume] in Serum or PlasmaOrdered By: Jacob Farfan on 27-89-3718Ctcbmyb [Mass/Vol]234 mg/tI55-023DvkupzsjsCorey HospitalComment on above:ADA recommended reference rangeRandom Glucose Reference Range is dependent on time and content of last meal. Glucose of more than 200 mg/dL in a nonstressed, ambulatory subject supports the diagnosisof Diabetes Mellitus.Glucose mean value [Mass/volume] in Blood Estimated from glycated hemoglobinOrdered By: Ezekiel Mathew on 01-32-9127Dtjvgim glucose Estimated from glycated hemoglobin (Bld) [Mass/Vol]220 mg/dLCorey HospitalHematocrit Auto (Bld) [Volume fraction]Ordered By: Jacob Farfan on 28-85-8760Zkxvdyjjsu (Bld) [Volume fraction]34.4 %34.0-46.4FPaulding County HospitalHemoglobin A1c percentageOrdered By: Ezekiel Mathew on 26-84-7714XaK7s (Bld) [Mass fraction]9.3 %4.3-5.6FPaulding County HospitalComment on above:Increased risk for diabetes: 5.7 - 6.4diabetes: >6.4glycemic control for adults with diabetes: <7.0Hemoglobin [Mass/volume] in BloodOrdered By: Jacob Farfan on 27-35-9313Artysnwsrd (Bld) [Mass/Vol]11.6 g/dL11.8-15.4FPaulding County HospitalKetones Auto test strip (U) [Mass/Vol]Ordered By: Jacob Farfan on 22-87-2495Swkhiry (U) [Mass/Vol]NegativeNegativeCorey HospitalLaboratory - Chemistry and Chemistry - challengeOrdered By: Jacob Farfan on 68-09-7527SIZ/1.73 sq M.predicted MDRD (S/P/Bld) [Vol rate/Area]mL/min/{1.73_m2}[facility] HospitalLaboratory - CoagulationOrdered By: Jacob Farfan on 88-71-8690PM Coag (PPP) [Time]12.2 s 9.0-12.9Core[facility] HospitalLaboratory - UrinalysisOrdered By: Jacob Farfan on 86-65-2046Qgobqlj casts LM Ql (Urine sed)0-8 [LPF]0-8 Core[facility] HospitalLeukocytes [#/volume] corrected for nucleated erythrocytes in Blood by Automated counOrdered By: Jacob Farfan on 73-74-1613YPT corrected for nucl RBC Auto (Bld) [#/Vol]8.5 10*3/uL3.8-11.6 [facility] HospitalLymphocytes Auto (Bld) [#/Vol]Ordered By: Jacob Farfan on 21-66-4744Vhlfpxvnuli (Bld) [#/Vol]2.3 10*3/uL1.00-4.8 Corey HospitalLymphocytes/100 WBC Auto (Bld)Ordered By: Jacob Farfan on 71-17-7944Vdxeuafnqwu/100 WBC (Bld)27.3 %.[facility] HospitalH Auto (RBC) [Entitic mass]Ordered By: Jacob Farfan on 38-98-9322OZG (RBC) [Entitic mass]30.8 pg24.7-34.3FPaulding County HospitalMCHC Auto (RBC) [Mass/Vol]Ordered By: Jacob Farfan on 83-51-2117HEDQ (RBC) [Mass/Vol]33.8 g/dL32.0-35.0Corey HospitalMCV Auto (RBC) [Entitic vol]Ordered By: Jacob Farfan on 82-69-4030YNG (RBC) [Entitic vol]91.2 bZ41-023FixwarxnbCorey HospitalMagnesium [Mass/volume] in Serum or PlasmaOrdered By: Jacob Farfan on 08-20-2022 Magnesium [Mass/Vol]1.2 mg/dL1.9-2.7FPaulding County HospitalMonocyte distribution width [Entitic volume] in Blood by AutomatedOrdered By: Jacob Farfan on 68-03-3188Dszdoncm distribution width Auto (Bld) [Entitic vol]20.72 % 0.00-20.00Corey HospitalComment on above:For adults in ED, MDW > 20.0 may be associated with a higher risk of sepsis during the first 12 h rs of hospital admissionMonocytes Auto (Bld) [#/Vol]Ordered By: Jacob Farfan on 46-22-9722Odqxqdvja (Bld) [#/Vol]0.5 10*3/uL0.0-0.8Corey HospitalMonocytes/100 WBC Auto (Bld)Ordered By: Jacob Farfan on 58-64-0806Cnqhbnpmi/100 WBC (Bld)6.0 %.[facility] Neutrophils Auto (Bld) [#/Vol]Ordered By: Jacob Farfan on 08-20-2022 Neutrophils (Bld) [#/Vol]5.5 10*3/uL1.8-7.7FPaulding County Hospital Neutrophils/100 WBC Auto (Bld)Ordered By: Jacob Farfan on 08-20-2022 Neutrophils/100 WBC (Bld)64.7 %.[facility]y HospitalNitrite Test strip Ql (U)Ordered By: Jacob Farfan on 20-93-0661Afvpehs Ql (U)Negative NegativeCorey HospitalNo Panel InformationOrdered By: Jeana Martini on 45-03-4773Tosxdxb Glucose #2 CommentCleaned meterCorey HospitalNo Panel InformationOrdered By: Jacob Farfan on 08-20-2022 Pharmacy Creatinine Clearance (Chem91.29[facility] Nucleated erythrocytes [Presence] in Blood by Automated countOrdered By: Jacob Farfan on 14-60-3808Povwwrsfw RBC Auto Ql (Bld)0.0 /100{WBC}0-0.5 [facility] HospitalOpiates [Presence] in Urine by Screen method Ordered By: Jacob Farfan on 01-60-8175Mhrloqy Screen Ql (U)NegativeNegative Corey HospitalPhencyclidine Screen Ql (U)Ordered By: Jacob Farfan on 54-35-9550Zxinmxggaurue Ql (U)NegativeNegOhioHealth O'Bleness HospitalPlatelet mean volume Auto (Bld) [Entitic vol]Ordered By: Jacob Farfan on 98-03-3070Uvkfcwqs mean volume (Bld) [Entitic vol]6.9 fL 6.3-10.7FPaulding County HospitalPlatelet poor plasma international normalized ratio (INR) by coagulation assay (relatOrdered By: Jacob Farfan on 75-46-3873JYS Coag (PPP) [Relative time]1.1 {INR}Corey HospitalComment on above:INR Therapeutic Range A) Pre- [...] Auto (Bld) [#/Vol]Ordered By: Jacob Farfan on 53-16-3551Brwgjlesz (Bld) [#/Vol]326 10*3/jE121-476FrwslwrxhCorey HospitalPotassium [Moles/volume] in Serum or PlasmaOrdered By: Jacob Farfan on 73-24-5425Jjplsxbjt [Moles/Vol]3.3 mmol/L3.5-5.1FPaulding County HospitalProtein Auto test strip (U) [Mass/Vol]Ordered By: Jacob Farfan on 80-03-0722Ohirhvx (U) [Mass/Vol]100 mg/dLNegativeCorey HospitalProtein [Mass/volume] in Serum or PlasmaOrdered By: Jacob Farfan on 01-78-0060Xcbatce [Mass/Vol]6.4 g/dL6.4-8.9Corey HospitalRBC Auto (Bld) [#/Vol]Ordered By: Jacob Farfan on 85-16-8204TBR (Bld) [#/Vol] 3.77 10*6/uL3.60-5.00[facility] Osteopathic Clinicerum or plasma albumin/globulin mass ratioOrdered By: Jacob Farfan on 08-20-2022 Albumin/Globulin [Mass ratio]1.3 {ratio}[facility]opathic Clinicerum or plasma anion gap determinationOrdered By: Jacob Farfan on 08-20-2022 Anion gap [Moles/Vol]11.3 mmol/L6.0-15.0[facility] Clinicodium [Moles/volume] in Serum or PlasmaOrdered By: Jacob Farfan on 08-20-2022 Sodium [Moles/Vol]141 mmol/M851-737FjxqhbxsxMarietta Osteopathic Clinicpecific gravity Auto test strip (U) [Rel density]Ordered By: Jacob Farfan on 35-76-0895Nrugpdps gravity (U) [Rel density]1.0171.001-1.030M[facility] Osteopathic Clinicquamous epithelial cells detection in urine sediment by light microscopyOrdered By: Jacob Farfan on 69-89-1083Jjlmnbyvvj cells.squamous LM Ql (Urine sed)3-4 [HPF]0-2FPaulding County HospitalTroponin I.cardiac [Mass/volume] in Serum or Plasma by Detection limit <= 0.01 ng/Ordered By: Jacob Farfan 83-17-6696Jroqqhpw I.cardiac DL <= 0.01 ng/mL [Mass/Vol]8.2 pg/mL0.0-15.0Corey HospitalUrea nitrogen [Mass/volume] in Serum or PlasmaOrdered By: Jacob Farfan 92-41-4280Vjid nitrogen [Mass/Vol]15 mg/dL7-25Corey HospitalUrine bacteria detection by automated methodOrdered By: Jacob Farfan on 52-63-7443Epsajeve Auto Ql (U)1+None SeenCorey HospitalUrine clarity by refractometry automatedOrdered By: Jacob Farfan on 65-78-1004Nqazkqy Refractometry automated (U)ClearClearFPaulding County HospitalUrine glucose measurement by automated test strip (mass/volume)Ordered By: Jacbo Farfan on 59-69-0037Qsrfruc Auto test strip (U) [Mass/Vol]>=1000 mg/dLNoAdams County HospitalUrine hemoglobin detection by automated test stripOrdered By: Jacob Farfan on 32-31-3830Hkuvquedjd Auto test strip Ql (U)Trace NegativeCorey HospitalUrine leukocyte esterase detection by automated test stripOrdered By: Jacob Farfan on 17-89-8251Pnxfoiedg esterase Auto test strip Ql (U)NegativeNegativeCorey Hospital Urobilinogen Auto test strip (U) [Mass/Vol]Ordered By: Jacob Farfan on 46-19-9379Sbvjgokizidi (U) [Mass/Vol]Normal mg/dLGreen Cross HospitalVitamin D+Metabolites [Mass/volume] in Serum or PlasmaOrdered By: Ezekiel Mathew on 02-63-3593Uayccgs D+Metabolites [Mass/Vol]< 7.0 ng/mL 30-100Corey HospitalComment on above:VITAMIN D STATUS 25(OH)VITAMIN D RANGE (ng/mL) Deficient <20 Insufficient 20 to <59Ttynkzwdrm00 to 100Reference: Bernie MF,Hina ARELLANO, Tran THIBODEAUX, et al. Evaluation,treatment, and prevention of vitamin D deficiency; an Endocrine Society clinical practice guideline. JCEM. 2010; 96(7):1911-30.WBC Auto (Bld) [#/Vol]Ordered By: Jacob Farfan on 55-77-5060NJL (Bld) [#/Vol]8.5 10*3/uL3.8-11.6FPaulding County HospitalpH Auto test strip (U)Ordered By: Jacob Farfan on 43-24-5451cP (U)6.5 [pH]5.0-9.0Corey HospitalCHEMISTRYOrdered By: [employer] on 42-59-7628Eebpgyn [Mass/Vol] 3.6 g/dLNormal3.3 - 5.0 gm/dLFTMC RemisolAlbumin/Globulin [Mass ratio]1.1 {ratio}Normal1.1 - 2.2[facility] RemisolALP [Catalytic activity/Vol]87 [iU]/vIbkkko91 - 98 Int._Unit/LFTMC RemisolALT No additional P-5'-P [Catalytic activity/Vol]11 [iU]/dNormal6 - 46 Int._Unit/LFTMC RemisolAnion gap [Moles/Vol]10 mmol/LNormal6 - 16 mEq/LFTMC RemisolAST [Catalytic activity/Vol]16 [iU]/dNormal5 - 43 Int._Unit/LFTMC RemisolBilirubin [Mass/Vol]0.3 mg/dLNormal0.0 - 1.1 mg/dLFTMC RemisolCalcium [Mass/Vol]9.0 mg/dLNormal8.9 - 11.1 mg/dLFTMC RemisolChloride [Moles/Vol]102 mmol/XArzvfa535 - 111 mmol/LFTMC RemisolCO2 [Moles/Vol]27 mmol/L Xgsvzb74 - 31 mmol/LFTMC RemisolCreatinine [Mass/Vol]0.9 mg/dLNormal0.5 - 1.3 mg/dLFTMC RemisolCRP [Mass/Vol]2.0 mg/dLHigh<=1.9mg/dLFTMC RemisolGFR/1.73 sq M.predicted among blacks MDRD (S/P/Bld) [Vol rate/Area]mL/min/1.73 n8Pmpugi >=59mL/min/1.73 m2[facility] Chem SGFR/1.73 sq M.predicted among non-blacks MDRD (S/P/Bld) [Vol rate/Area]mL/min/1.73 y9Vexlcq>=59mL/min/1.73 m2[facility] Chem S Globulin (S) [Mass/Vol]3.3 g/dLNormal1.4 - 4.0 gm/dLFTMC RemisolGlucose [Mass/Vol]204 mg/yJYomp23 - 199 mg/dLFTMC RemisolLactate [Mass/Vol]1.2 mmol/L Normal0.5 - 2.2 mmol/LFTMC RemisolMagnesium [Mass/Vol]1.3 mg/dLNormal1.3 - 2.4 mg/dLFTMC RemisolPotassium [Moles/Vol]3.1 mmol/LLow3.5 - 5.3 mmol/LFTMC Remisol Protein [Mass/Vol]6.9 g/dLNormal6.0 - 7.8 gm/dLFTMC RemisolSodium [Moles/Vol]136 mmol/EOsvicy906 - 145 mmol/LFTMC RemisolTroponin I.cardiac [Mass/Vol]6.60 pg/mL Low10.10 - 27.10 pg/mLFTMC RemisolUrea nitrogen [Mass/Vol]17 mg/dLNormal5 - 21 mg/dLFTMC RemisolUrea nitrogen/Creatinine [Mass ratio]19 mg/pwZrtvkx52 - 20[facility] RemisolCHEMISTRYOrdered By: Shannen Sosa on 24-92-6507Rrwhoqfekzh peptide B (Bld) [Mass/Vol]47 pg/mLNormal5 - 80 pg/mLFTMC HemeManSSCOAGULATIONOrdered By: Gigi Morrison on 36-25-1016fABT Coag (PPP) [Time]30.5 mLnszsz02.1 - 36.5 second(s)[facility] Auto CoagINR Coag (PPP) [...] - 0.5 E9/L [facility] HemeAutoSSLymphocytes/100 WBC (Bld)18.0 %Cyjcur43.0 - 50.0 %[facility] HemeAutoSS Lymphocytes/Leukocytes Auto (Bld) [Pure # fraction]1.6 E9/LNormal1.0 - 4.0 E9/L [facility] HemeAutoSSMonocytes/100 WBC (Bld)6.7 %Normal4.0 - 14.0 %[facility] HemeAutoSS Monocytes/Leukocytes Auto (Bld) [Pure # fraction]0.6 E9/LNormal0.2 - 1.0 E9/L [facility] HemeAutoSSNeutrophils/100 WBC (Bld)73.9 %Motzln62.0 - 75.0 %[facility] HemeAutoSS Neutrophils/Leukocytes Auto (Bld) [Pure # fraction]6.8 E9/LNormal2.0 - 7.5 E9/L [facility] HemeAutoSSHEMATOLOGYOrdered By: Shannen Sosa on 46-38-1170Hnqgdyvqzld distribution width (RBC) [Ratio]14.1 %Otexef78.9 - 14.2 %[facility] HemeAutoSS Hematocrit (Bld) [Volume fraction]36.2 %Yupuvm36.0 - 46.0 %[facility] HemeAutoSS Hemoglobin (Bld) [Mass/Vol]12.5 g/rQKmhkax97.0 - 16.0 gm/dLFTMC HemeAutoSSMCH (RBC) [Entitic mass]31.1 ezYacckl75.0 - 34.0 pgFTMC HemeAutoSSMCHC (RBC) [Mass/Vol]34.4 g/zHWspbnb83.4 - 36.0 gm/dLFTMC HemeAutoSSMCV (RBC) [Entitic vol] 90.4 eXRvlaqe76.0 - 100.0 fLFTMC HemeAutoSSPlatelet mean volume (Bld) [Entitic vol]7.2 fLNormal6.4 - 10.8 fLFTMC HemeAutoSSPlatelets (Bld) [#/Vol]333.0 E9/L Shisgn415.0 - 500.0 E9/LFTMC HemeAutoSSRBC (Bld) [#/Vol]4.0 E12/LLow4.3 - 5.9 E12/LFTMC HemeAutoSSSed Rate Dhblznfxg05 mm/hNormal0 - 34 mm/hrFTMC HemeAutoSS WBC corrected for nucl RBC Auto (Bld) [#/Vol]9.2 E9/LNormal4.0 - 11.0 E9/LFTMC HemeAutoSSCBC AUTO DIFFon 79-26-7744FUGB #0.0 103/ulNormal0.0-0.1The [facility] Hospitalment on above:Performed By: #### CBC ####[facility] [address] [place], [place] [address]Dr.Devin ChangBasophils/100 WBC (Bld)0.5 %Normal0.2-2.0The [facility]. [facility] HospitalComment on above:Performed By: #### CBC ####[facility] [address] [place], [place] [address]Dr.Tishlan ChangEO #0.1 103/ulNormal0.0-0.7The [facility]. [facility] HospitalComment on above:Performed By: #### CBC ####[facility] [address] [place], [place] [address]Dr.Devin ChangEosinophils/100 WBC (Bld)1.6 %Normal 0.9-7.0The [facility] HospitalComment on above:Performed By: #### CBC ####[facility] [address] [place], [place] [address]Dr.Devin Suresh Erythrocyte distribution width (RBC) [Ratio]13.3 %Mcnyeo46.0-15.0The [facility] HospitalComment on above:Performed By: #### CBC ####[facility] [address] [place], [place] [address]Dr.Devin SureshHematocrit (Bld) [Volume fraction]30.1 %Critically low36.0-48.0The [facility] HospitalComment on above:Performed By: #### CBC ####[facility] [address] [place], [place] [address]Dr.Devin SureshHemoglobin (Bld) [Mass/Vol]10.6 g/dL Critically low12.0-16.0The [facility] HospitalComment on above:Performed By: #### CBC ####[facility] [address] [place], [place] [address]Dr. Devin SureshIG #0.04 10e3/ulCritically high0.00-0.03The [facility] HospitalComment on above:Performed By: #### CBC ####[facility] [address] [place] [address]Dr.Devin SureshIG %0.6 %Critically high0.0-0.5The [facility] HospitalComment on above:Performed By: #### CBC ####[facility] [address] [place], [place] [address]Dr.Devin SurehsLYMPH #2.3 103/ulNormal1.2-3.8The [facility] HospitalComment on above:Performed By: #### CBC ####[facility] [address] [place], [place] [address]Dr. Devin Hernandezmphocytes/100 WBC (Bld)36.0 %Vwtcna47.5-60.0[facility] Comment on above:Performed By: #### CBC ####[facility] [address] [place], [place] [address]Dr.Devin SureshMANUAL DIFF REQNONormalThe St. Vincent HospitalComment on above:Performed By: #### CBC ####[facility] [address] [place], [place] [address]Dr[facility] (RBC) [Entitic mass]31.1 ovRtigky90.7-34.0[facility] HospitalComment on above: Performed By: #### CBC ####[facility] [address]ft[address] [place], [place] [address]Dr.Devin SureshHC (RBC) [Mass/Vol]35.2 g/dLNormal 29.9-35.2The [facility] HospitalComment on above:Performed By: #### CBC ####[facility] [address] [place], [place] [address]Dr. Deivn SureshV (RBC) [Entitic vol]88.3 hOJcbaus99.0-99.0[facility] Comment on above:Performed By: #### CBC ####[facility] [address] [place], [place] [address]Dr.Devin SureshMONO #0.4 103/ulNormal0.3-0.8 [facility] HospitalComment on above:Performed By: #### CBC ####[facility] [address] [place], [place] [address]Dr.Devin Suresh Monocytes/100 WBC (Bld)6.1 %Normal1.7-12.0[facility] HospitalComment on above: Performed By: #### CBC ####[facility] Jkxrmncmsf715[address] [place], [place] [address]Dr.Devin SureshNEUT #3.5 103/ulNormal1.4-6.5The [facility]ho[facility] HospitalComment on above:Performed By: #### CBC ####[facility] Rssolxduuq728[address] [place], [place] [address]Dr.Devin SureshNeutrophils/100 WBC (Bld)55.2 %Eipkug93.0-75.0The [facility]. [facility] HospitalComment on above:Performed By: #### CBC ####[facility] Dgkjwiqxco814[address] [place], [place] [address]Dr.Devin SureshPlatelet mean volume (Bld) [Entitic vol]8.3 fLCritically low 9.5-13.5The St. [facility] HospitalComment on above:Performed By: #### CBC ####[facility] Wzlchiishc6829[address] [place], [place] [address]Dr. Devin LfiffHNV217 103/drFfapvc668-604Qry St[facility] HospitalComment on above: Performed By: #### CBC ####[facility] Gykhchwnol516[address] [place], [place] [address]Dr.Devin ChangRBC3.41 106/ulCritically low4.20-5.40The [facility]. [facility] HospitalComment on above:Performed By: #### CBC ####[facility] Wiisohkneo335371 [address] [place], [place] [address]Dr.Devin ChangWBC6.3 103/ul Normal4.0-11.0The [facility] HospitalComment on above:Performed By: #### CBC ####[facility] Ntmrqyiwej6411[address] [place], [place] [address]Dr. Yilan ChangPOINT OF CARE GLUCOSEon 55-37-3624Wzoukmk [Mass/Vol]209 mg/dL Critically wyqj06-882Itc [facility] HospitalComment on above:Performed By: #### POCGLUC ####[facility] [address]peqqx[address] [place] [address]Dr. Tishlan ChangPROF 14(COMP METB)on 81-48-9679Tglkfcg [Mass/Vol]3.2 g/dL Critically low3.4-5.0The St. [facility] HospitalComment on above:Performed By: #### CMP ####[facility] Ewtjiuhueq7026[address] [place], [place] [address]Dr. Tishlan ChangAlbumin/Globulin [Mass ratio]1.1 {ratio}NormalThe [facility] Comment on above:Performed By: #### CMP ####[facility] Oigosufoqf263[address] [place], [place] [address]Dr.Tishlan ChangALP [Catalytic activity/Vol]85 U/XKsvmnq67-525Vts St[facility] HospitalComment on above:Performed By: #### CMP ####[facility] Qbqhozeavl9524[address] [place], [place] [address]Dr. Tishlan ChangALT [Catalytic activity/Vol]14 U/WWjzuox32-86Gci [facility] Comment on above:Performed By: #### CMP ####[facility] Qybudleqme52[address] [place], [place] [address]Dr.Devin ChangAnion gap [Moles/Vol]12.7 mmol/LNormalThe St. [facility] HospitalComment on above:Performed By: #### CMP ####[facility] Owiqhoprun9520[address] [place], [place] [address]Dr. Yilan ChangAST [Catalytic activity/Vol]14 U/LCritically rwj85-37Txm [facility] HospitalComment on above:Performed By: #### CMP ####[facility] Emtuiixmeo428271 [address] [place], [place] [address]Dr.Tishlan ChangBilirubin [Mass/Vol]0.4 mg/dLNormal0.2-1.0The [facility] HospitalComment on above:Performed By: #### CMP ####[facility] Inrbktnayr46[address] [place] [address]Dr.Yilan ChangCalcium [Mass/Vol]7.9 mg/dLCritically low8.5-10.1The [facility] HospitalComment on above:Performed By: #### CMP ####[facility] Xavkmomhpm0589[address] [place], [place] [address]Dr.Yilan ChangChloride [Moles/Vol]106 mmol/DVwnifs68-840Ufw St[facility] HospitalComment on above:Performed By: #### CMP ####[facility] Fwxldbaygx5199[address] [place], [place] [address]Dr.Yilan ChangCO2 [Moles/Vol]23.5 mmol/JKxcahv62.0-32.0The [facility] HospitalComs[facility] on above:Performed By: #### CMP ####[facility] Evlfygvhhb878371 [address] [place], [place] [address]Dr.Yilan ChangCreatinine [Mass/Vol]0.88 mg/dLNormal0.55-1.02The [facility] HospitalComment on above: Performed By: #### CMP ####[facility] Jlobfwfzca065[address] [place], [place] [address]Dr.Yilan ChangEGFR-AF NIUEAN>60Normal>=60The [facility] on above:Performed By: #### CMP ####[facility] Xikfbaiqqt026[address] [place], [place] [address]Dr.Yilan ChangEGFR-NON AF NIUEAN>60Normal>=60The [facility] HospitalComsher[facility] hospital on above:Performed By: #### CMP ####[facility] Iflsxtyxbi910571 [address] [place], [place] [address]Dr. Yilan ChangGlobulin (S) [Mass/Vol]2.8 g/dLNormalThe St. [facility] HospitalComsheridan [facility] hospital on above:Performed By: #### CMP ####[facility] Qhegpsxuta849471 [address] [place], [place] [address]Dr.Yilan ChangGlucose [Mass/Vol]165 mg/dLCritically hkyl38-942Fky [facility] HospitalComsher[facility] on above:Performed By: #### CMP ####[facility] Pginthvywb57[address] [place] [address]Dr. Yilan ChangPotassium [Moles/Vol]3.2 mmol/LCritically low3.5-5.1The [facility] HospitalComment on above:Performed By: #### CMP ####[facility] Zlxblthjmi696371 [address] [place], [place] [address]Dr.Yilan ChangProtein [Mass/Vol]6.0 g/dLCritically low6.4-8.2The [facility] HospitalComment on above: Performed By: #### CMP ####[facility] Lceiupqvme968971 [address] [place], [place] [address]Dr.Yilan ChangSodium [Moles/Vol]139 mmol/LNormal 136-145The [facility] HospitalComment on above:Performed By: #### CMP ####[facility] Ukppbdjxph966171 [address] [place], [place] [address]Dr.Yilan ChangUrea nitrogen [Mass/Vol]5.0 mg/dLCritically low7.0-18.0The [facility] HospitalComment on above:Performed By: #### CMP ####[facility] Tgyhgqphxk289971 [address] [place], [place] [address]Dr.Yilan ChangUrea nitrogen/Creatinine [Mass ratio]5.6 mg/mgNormalThe St. [facility] HospitalComment on above:Performed By: #### CMP ####[facility] Kmrelplsel020[address] [place], [place] [address]Dr. Devin ChangCBC AUTO DIFFon 96-50-3084JPNM #0.0 103/ulNormal0.0-0.1The [facility] HospitalComsher[facility] hospital on above:Performed By: #### CBC ####[facility] Hzcruitwar629171 [address] [place], [place] [address]Dr.Yilan ChangBasophils/100 WBC (Bld)0.3 %Normal0.2-2.0The [facility] HospitalComsher[facility] hospital on above:Performed By: #### CBC ####[facility] Uskgrtogdw830571 [address] [place], [place] [address]Dr.Yilan ChangEO #0.1 103/ulNormal0.0-0.7The [facility] HospitalComment on above:Performed By: #### CBC ####[facility] Bucqedzoaf902871 [address] [place], [place] [address]Dr.Tishemily ChangEosinophils/100 WBC (Bld)1.7 %Normal 0.9-7.0The [facility] HospitalComment on above:Performed By: #### CBC ####[facility] Jiolfkrook119[address] [place], [place] [address]Dr.Devin Suresh Erythrocyte distribution width (RBC) [Ratio]13.4 %Ehvbvt57.0-15.0The [facility] HospitalComment on above:Performed By: #### CBC ####[facility] Nloqywxaqt836071 [address] [place], [place] [address]Dr.Devin ChangHematocrit (Bld) [Volume fraction]28.6 %Critically low36.0-48.0The [facility] HospitalComment on above:Performed By: #### CBC ####[facility] Lasuzpbere158971 [address] [place], [place] [address]Dr.Devin ChangHemoglobin (Bld) [Mass/Vol]9.8 g/dL Critically low12.0-16.0The [facility] HospitalComment on above:Performed By: #### CBC ####[facility] Bbxffkoown076171 [address] [place], [place] [address]Dr. Devin ChangIG #0.04 10e3/ulCritically high0.00-0.03The [facility] HospitalComment on above:Performed By: #### CBC ####[facility] Kfxgonsvqw932271 [address] [place], [place] [address]Dr.Devin ChangIG %0.7 %Critically high0.0-0.5The [facility] HospitalComment on above:Performed By: #### CBC ####[facility] Lpgiensclx032471 [address] [place], [place] [address]Dr.Devin ChangLYMPH #1.8 103/ulNormal1.2-3.8The [facility] HospitalComment on above:Performed By: #### CBC ####[facility] Ftwcuwytbg1020[address] [place], [place] [address]Dr. Devin ChangLymphocytes/100 WBC (Bld)30.9 %Lotpvn91.5-60.0The [facility] Comment on above:Performed By: #### CBC ####[facility] Igotxpivbt367971 [address] [place], [place] [address]Dr.Devin KerwinMANUAL DIFF REQNONormalThe St. [facility] HospitalComment on above:Performed By: #### CBC ####[facility] Oltolrwkqu213[address] [place], [place] [address]Dr.Devin SureshH (RBC) [Entitic mass]30.0 pdQlrrjq99.7-34.0The [facility] HospitalComment on above: Performed By: #### CBC ####[facility] Vwsdppdayc675071 [address] [place], [place] [address]Dr.Devin KerwinHC (RBC) [Mass/Vol]34.3 g/dLNormal 29.9-35.2The [facility] HospitalComment on above:Performed By: #### CBC ####[facility] Laefvzimyw623971 [address] [place], [place] [address]Dr. Devin SureshV (RBC) [Entitic vol]87.5 hNZyqiso10.0-99.0The [facility] Comment on above:Performed By: #### CBC ####[facility] Eahsxzohcx462671 [address] [place], [place] [address]Dr.Devin SureshMONO #0.3 103/ulNormal0.3-0.[address] [facility] HospitalComment on above:Performed By: #### CBC ####[facility] Ozibgvsqss128671 [address] [place], [place] [address]Dr.Devin Suresh Monocytes/100 WBC (Bld)4.3 %Normal1.7-12.0The [facility] HospitalComment on above: Performed By: #### CBC ####[facility] Gmljeacjsp089571 [address] [place], [place] [address]DrGonzalo SureshNEUT #3.6 103/ulNormal1.4-6.5The [facility] HospitalComment on above:Performed By: #### CBC ####[facility] Ppfjelhqji405971 [address] [place], [place] [address]Dr.Devin SureshNeutrophils/100 WBC (Bld)62.1 %Pvmfyl38.0-75.0The [facility] HospitalComment on above:Performed By: #### CBC ####[facility] Dccbtbfwlk58[address] [place] [address]Dr.Devin ChangPlatelet mean volume (Bld) [Entitic vol]8.5 fLCritically low 9.5-13.5The [facility] HospitalComment on above:Performed By: #### CBC ####[facility] Ichmlxwsuq963471 [address] [place], [place] [address]Dr. Devin MqhvwOWL422 103/ngQxetpr081-108Sgc [facility] HospitalComment on above: Performed By: #### CBC ####[facility] Fkgfjbzivo9429[address] [place], [place] [address]Dr.Devin ChangRBC3.27 106/ulCritically low4.20-5.40The [facility] HospitalComment on above:Performed By: #### CBC ####[facility] Gkzrykafkq3555[address] [place], [place] [address]Dr.Devin ChangWBC5.9 103/ul Normal4.0-11.0The [facility] HospitalComment on above:Performed By: #### CBC ####[facility] Gvjmijilvt496471 [address] [place], [place] [address]Dr. Devin SureshCBC W MANUAL DIFFon 45-50-2729XLTQKVWQHNNP8+NormalThe St. [facility] HospitalComment on above:Performed By: #### CBCMAN ####[facility] Afbeqcpsqm833[address] [place], [place] [address]Dr. Tishlan ChangATYPICAL LYMPH #NormalThe [facility] HospitalComment on above:Performed By: #### CBCMAN ####[facility] Wwbapygbet036[address] [place], [place] [address]Dr. Tishlan ChangATYPICAL LYMPH %NormalThe [facility] HospitalComment on above:Performed By: #### CBCMAN ####[facility] Qzwaptoibt848271 [address] [place], [place] [address]Dr. Yilan ChangBAND #0.1 103/ulNormal0.0-0.3The [facility] Comment on above:Performed By: #### CBCMAN ####[facility] Xnsherdjbv6[address] [place] [address]Dr. Yilan ChangBAND %1 %Normal0-5The [facility] HospitalComment on above:Performed By: #### CBCMAN ####[facility] Hqhxlxjsew25[address] [place] [address]Dr. Yilan ChangBASOM #0.10 103/ulNormal0.00-0.10The [facility] HospitalComment on above:Performed By: #### CBCMAN ####[facility] Uwgqnqnozx6618 [place] [address]Dr. Yilan ChangBASOM %2.0 %Normal0.2-2.0The [facility] HospitalComment on above:Performed By: #### CBCMARLEE ####[facility] Iupjaybdhg2170[address] [place], [place] [address]Dr. Yilan ChangBLAST #NormalThe [facility] Comment on above:Performed By: #### CBCMARLEE ####[facility] Kibiimajoh40216[address] [place], [place] [address]Dr. Yilan ChangBLAST %NormalThe [facility]. [facility] HospitalComment on above:Performed By: #### CBCMARLEE ####[facility] Ccvjbfgjgy1499[address] [place], [place] [address]Dr. Yilan ChangCORRECTED WBC Normal4.0-11.0The [facility] HospitalComment on above:Performed By: #### CBCMAN ####[facility] Dnztwswpbv5959[address] [place], [place] [address]Dr. Yilan ChangEOS #0.40 103/ulNormal0.00-0.70The [facility] HospitalComment on above: Performed By: #### CBCMAN ####[facility] Hloyuqosgw310[address] [place], [place] [address]Dr. Yilan ChangEOS%8.0 %Critically high0.9-7.0The [facility] HospitalComment on above:Performed By: #### CBCMAN ####[facility] Mxnvlqupst905[address] [place], [place] [address]Dr. Yilan ChangHCT 29.5 %Critically low36.0-48.0The [facility] HospitalComment on above:Performed By: #### CBCMAN ####[facility] Kaoolupgww413[address] [place], [place] [address]Dr. Devin SureshHGB10.0 g/dlCritically low12.0-16.0The [facility] Comment on above:Performed By: #### CBCMAN ####[facility] Sgpjyqmmvi4829[address] [place], [place] [address]Dr. Devin SureshLYMPHM #0.35 103/ulCritically low1.20-3.80The [facility] HospitalComment on above:Performed By: #### CBCMARLEE ####[facility] Qimzlbhneq686671 [address] [place], [place] [address]Dr. Devin SureshLYMPHM%7.0 %Critically low20.5-60.0The [facility] HospitalComment on above:Performed By: #### CBCMARLEE ####[facility] Qvotmtqkpj924[address] [place], [place] [address]Dr. Devin SureshMCH30.0 vzAeymnf57.7-34.0The [facility] HospitalComment on above:Performed By: #### CBCMARLEE ####[facility] Uzxqktesup667[address] [place], [place] [address]Dr. Devin SureshMCHC33.9 g/dl Witiya34.9-35.2The [facility] HospitalComment on above:Performed By: #### CBCMAN ####[facility] Eslvvlijhc972171 [address] [place], [place] [address]Dr. Devin SureshMCV88.6 xWKbroik71.0-99.0The [facility] HospitalComment on above: Performed By: #### CBCMAN ####[facility] Qbixjraixc998[address] [place], [place] [address]Dr. Devin SureshMETAMYELOCYTE #0.1 103/ulNormalThe St. [facility] HospitalComment on above:Performed By: #### CBCMAN ####[facility] Ydkchruaoe46[address] [place], [place] [address]Dr. Devin Suresh METAMYELOCYTE %2 %NormalThe [facility] HospitalComment on above:Performed By: #### CBCMAN ####[facility] Furfcixbks4699 [place] [address]Dr. Yilan ChangMONOM#0.05 103/ulCritically low0.30-0.80The [facility] HospitalComment on above:Performed By: #### CBCMAN ####[facility] Nqmeqexkpv8380 [place] [address]Dr. Yilan ChangMONOM%1.0 % Critically low1.7-12.0The [facility] HospitalComment on above:Performed By: #### CBCMAN ####[facility] Csccpftmej9641 [place] [address]Dr. Yilan ChangMPV8.5 fLCritically low9.5-13.5The [facility] HospitalComment on above:Performed By: #### CBCMAN ####[facility] Rdcucpymau2785 [place] [address]Dr. Yilan ChangMYELOCYTE #NormalThe [facility] HospitalComment on above:Performed By: #### CBCMAN ####[facility] Aldxpxlbtt1852 [place] [address]Dr. Yilan ChangMYELOCYTE % NormalThe [facility] HospitalComment on above:Performed By: #### CBCMAN ####[facility] Grzsbkcgxv04[address] [place] [address]Dr. Yilan ChangNRBCNormalThe St. [facility] HospitalComment on above:Performed By: #### CBCMAN ####[facility] Zbffwqgksc1342 [place] [address]Dr. Yilan NvkbjXUC347 103/vnUeokev708-790Xrf [facility] HospitalComment on above:Performed By: #### CBCMAN ####[facility] Hrjtvcfgmt0496[address] [place], [place] [address]Dr. Yilan ChangPOIKILOCYTOSIS2+NormalThe St. [facility] HospitalComment on above:Performed By: #### CBCMAN ####[facility] Wasftnotis2039 [place] [address]Dr. Yilan ChangRBC3.33 106/ul Critically low4.20-5.40[facility] on above:Performed By: #### CBCMAN ####[facility] Ogweesqzez[address] [place] [address]Dr. Devin SureshRDW13.3 %Smxyyr99.0-15.0The [facility]Coms[facility] on above:Performed By: #### CBCMAN ####[facility] Scszrnhpxl2504[address] [place], [place] [address]Dr. Devin SureshSEG #3.95 103/ulNormal1.40-6.50[facility]Com[facility] on above:Performed By: #### CBCMAN ####[facility] Dowksrnzma0517[address] [place], [place] [address]Dr. Devin SureshSEG % 79.0 %Critically high43.0-75.0The [facility]Com[facility] on above:Performed By: #### CBCMAN ####[facility] Kcxkwhdflz3736[address] [place], [place] [address]Dr. Devin ChangWBC5.0 103/ulNormal4.0-11.0The [facility]Com[facility] on above:Performed By: #### CBCMAN ####[facility] Lgoqvgpwxh0710[address] [place], [place] [address]Dr. Devin ChangECHOCARDIO M/2D COMPLETEon 69-57-5783IEBURIXDUU M/2D [facility] OF CARE GLUCOSEon 09-16-6375Jtqcgem [Mass/Vol]151 mg/dLCritically eoln14-569GhsOhioHealth [facility]heastern [facility] on above:Performed By: #### POCGLUC ####[facility] Mtiktcotre509[address] [place], [place] [address]Dr. Devin ChangGlucose [Mass/Vol]188 mg/dLCritically oobr46-593YiwLima [facility] HospitalComsheridan community hospital on above: Performed By: #### POCGLUC ####[facility] Josuqtkzqu8844[address] [place], [place] [address]Dr. Devin ChangGlucose [Mass/Vol]243 mg/dLCritically mxnf73-388ZtwLima [facility] HospitalComsheridan community hospital on above:Performed By: #### POCGLUC ####[facility] Nsscaxhmuc26[address] [place] [address]Dr. Yilan ChangGlucose [Mass/Vol]259 mg/dLCritically ptlc72-893Jtf [facility] Comment on above:Performed By: #### POCGLUC ####[facility] Bznqfhetrx5734 [place] [address]Dr. Yilan ChangPROF 14(COMP METB)on 27-79-2253Tecbrxh [Mass/Vol]3.1 g/dLCritically low3.4-5.0The [facility] Comment on above:Performed By: #### CMP ####[facility] Csmljsiwoo549[address] [place], [place] [address]Dr.Yilan ChangAlbumin/Globulin [Mass ratio] 1.1 {ratio}NormalThe St. [facility] HospitalComment on above:Performed By: #### CMP ####[facility] Nedmrlmjrh067[address] [place], [place] [address]Dr. Yilan ChangALP [Catalytic activity/Vol]86 U/IIdyyuu37-256Kea [facility] Comment on above:Performed By: #### CMP ####[facility] Wisbluakue922[address] [place], [place] [address]Dr.Yilan ChangALT [Catalytic activity/Vol]12 U/LCritically jto64-71Lmb [facility] HospitalComment on above:Performed By: #### CMP ####[facility] Vucpbblhjx580[address] [place], [place] [address]Dr. Yilan ChangAnion gap [Moles/Vol]13.2 mmol/LNormalThe St. [facility] HospitalComment on above:Performed By: #### CMP ####[facility] Mwxghvwbsr1116[address] [place], [place] [address]Dr.Yilan ChangAST [Catalytic activity/Vol]13 U/L Critically zta83-06Xja [facility] HospitalComment on above:Performed By: #### CMP ####[facility] Mgacjougqx8901[address] [place], [place] [address]Dr. Yilan ChangBilirubin [Mass/Vol]0.4 mg/dLNormal0.2-1.0The [facility] Comment on above:Performed By: #### CMP ####[facility] Iqzjubjukw7[address] [place] [address]Dr.Yilan ChangCalcium [Mass/Vol]8.0 mg/dL Critically low8.5-10.1The [facility] HospitalComment on above:Performed By: #### CMP ####[facility] Mopsoeblek827671 [address] [place], [place] [address]Dr. Yilan ChangChloride [Moles/Vol]108 mmol/LCritically mvao02-639Sqy [facility] HospitalComment on above:Performed By: #### CMP ####[facility] Xnhfixahws535[address] [place], [place] [address]Dr.Yilan ChangCO2 [Moles/Vol] 21.3 mmol/TLqlfef97.0-32.0The [facility] HospitalComment on above:Performed By: #### CMP ####[facility] Yjfmrfxdqr0527[address] [place], [place] [address]Dr.Yilan ChangCreatinine [Mass/Vol]0.76 mg/dLNormal0.55-1.02The [facility] HospitalComment on above:Performed By: #### CMP ####[facility] Hhwkwidoct809171 [address] [place], [place] [address]Dr.Yilan ChangEGFR-AF NIUEAN>60Normal>=60The [facility] HospitalComment on above:Performed By: #### CMP ####[facility] Ensyjwvvrf727[address] [place], [place] [address]Dr. Yilan ChangEGFR-NON AF NIUEAN>60Normal>=60The [facility] HospitalComment on above:Performed By: #### CMP ####[facility] Cxxeuakyxh0436[address] [place], [place] [address]Dr.Yilan ChangGlobulin (S) [Mass/Vol]2.8 g/dLNormalThe St. [facility] HospitalComment on above:Performed By: #### CMP ####[facility] Irsyscbgwi244[address] [place], [place] [address]Dr.Yilan ChangGlucose [Mass/Vol]235 mg/dLCritically wrfe60-935Hdv [facility] HospitalComment on above: Performed By: #### CMP ####[facility] Qxsticcvkn5730 [place] [address]Dr.Devin ChangPotassium [Moles/Vol]3.5 mmol/LNormal 3.5-5.1The [facility] HospitalComment on above:Performed By: #### CMP ####[facility] Lyebtfoyyo80[address] [place] [address]Dr.Devin Suresh Protein [Mass/Vol]5.9 g/dLCritically low6.4-8.2The [facility] HospitalComment on above:Performed By: #### CMP ####[facility] Ldwpvzqgqq779[address] [place], [place] [address]Dr.Devin ChangSodium [Moles/Vol]139 mmol/LNormal 136-145The [facility] HospitalComment on above:Performed By: #### CMP ####[facility] Cpcvphwnux5815[address] [place], [place] [address]Dr.Devin ChangUrea nitrogen [Mass/Vol]4.0 mg/dLCritically low7.0-18.0The [facility] HospitalComment on above:Performed By: #### CMP ####[facility] Wvewhcjtle728[address] [place], [place] [address]Dr.Devin ChangUrea nitrogen/Creatinine [Mass ratio]5.3 mg/mgNormalThe St. [facility] HospitalComsheridan [facility] hospital on above:Performed By: #### CMP ####[facility] Tedmnoxfys060[address] [place], [place] [address]Dr. Devin KerwinTROPONIN, HIGH SENSITIVITYon 75-61-9256GBMQLX7.5 pg/mLNormal4.0-51.[address] [facility]Coms[facility] on above:Result Comment: CUT-OFF POINTS HAVE BEEN ESTABLISHED BASED ON THE FOURTH UNIVERSAL DEFINITIONS OF MYOCARDIALINFARCTION. THE UPPER REFERENCE LIMIT (URL) OF TROPONIN, DEFINED THE 99TH PERCENTILE OFcT nI DISTRIBUTION IN A REFERENCE POPULATION, HAS BEEN CONFIRMED THE DECISION THRESHOLDFOR [place] DIAGNOSIS.Performed By: #### HSTROPN ####[facility] Uwmpodpocc0023[address] [place], [place] [address]Dr. Devin ChangHSTROP7.5 pg/mLNormal4.0-51.3The [facility] HospitalComment on above:Result Comment: CUT-OFF POINTS HAVE BEEN ESTABLISHED BASED ON THE FOURTH UNIVERSAL DEFINITIONS OF MY OCARDIALINFARCTION. THE UPPER REFERENCE LIMIT (URL) OF TROPONIN, DEFINED THE 99TH PERCENTILE OFcTnI DISTRIBUTION IN A REFERENCE POPULATION, HAS BEEN CONFIRMED THE DECISION THRESHOLDFOR W[place] DIAGNOSIS.Performed By: #### HSTROPN ####[facility] Umhuwbxbxq6844[address] [place], [place] [address]Dr. Yilan ChangHSTROP6.9 pg/mLNormal4.0-51.3The [facility] HospitalComment on above: Result Comment: CUT-OFF POINTS HAVE BEEN ESTABLISHED BASED ON THE FOURTH UNIVERSAL DEFINITIONS OF MYOCARDIALINFARCTION. THE UPPER REFERENCE LIMIT (URL) OF TROPONIN, DEFINED THE 99TH PERCENTILE OFcTnI DISTRIBUTION IN A REFERENCE POPULATION, HAS BEEN CONFIRMED THE DECISION THRESHOLDFOR [place] DIAGNOSIS. Performed By: #### HSTROPN ####[facility] Udhobstiwl907[address] [place], [place] [address]Dr. Tishlan ChangCBC AUTO DIFFon [id number] #0.0 103/ulNormal0.0-0.1The [facility] HospitalComment on above:Performed By: #### CBC ####[facility] Qkhktsqtwj2949[address] [place], [place] [address]Dr. Tishlan ChangBasophils/100 WBC (Bld)0.4 %Normal0.2-2.0The [facility] HospitalComment on above:Performed By: #### CBC ####[facility] Iybcvbfdlx3680[address] [place], [place] [address]Dr.Yilan ChangEO #0.1 103/ulNormal0.0-0.7The [facility] on above:Performed By: #### CBC ####[facility] Vnzwaefybz9890[address] [place], [place] [address]Dr.Yilan ChangEosinophils/100 WBC (Bld)2.3 %Normal0.9-7.0The [facility]. [facility] HospitalComment on above:Performed By: #### CBC ####[facility] Uartbdfqjb33[address] [place], [place] [address]Dr.Yilan ChangErythrocyte distribution width (RBC) [Ratio]13.8 %Normal 11.0-15.0The [facility]. [facility] HospitalComment on above:Performed By: #### CBC ####[facility] Xfecogxmav914[address] [place], [place] [address]Dr. Devin ChangHematocrit (Bld) [Volume fraction]29.6 %Critically low36.0-48.0The [facility] HospitalComment on above:Performed By: #### CBC ####[facility] Geypuyplea935671 [address] [place], [place] [address]Dr.Devin ChangHemoglobin (Bld) [Mass/Vol]10.0 g/dLCritically low12.0-16.0The [facility] HospitalComment on above:Performed By: #### CBC ####[facility] Xyqlywhhuc354871 [address] [place], [place] [address]Dr.Yilan ChangIG #0.02 10e3/ulNormal0.00-0.03The [facility] HospitalComment on above:Performed By: #### CBC ####[facility] Xdgtmcuemf136871 [address] [place], [place] [address]Dr.Devin ChangIG %0.4 %Normal 0.0-0.5The [facility] HospitalComment on above:Performed By: #### CBC ####[facility] Lbzjpdqtnf182771 [address] [place], [place] [address]Dr.Devin ChangLYMPH #2.4 103/ulNormal1.2-3.8The [facility]. [facility] HospitalComment on above:Performed By: #### CBC ####[facility] Qtsyholjmr154071 [address] [place], [place] [address]Dr.Devin ChangLymphocytes/100 WBC (Bld)46.2 %Uraqis99.5-60.0The [facility] HospitalComment on above:Performed By: #### CBC ####[facility] Jrpfquguyc273771 [address] [place], [place] [address]Dr.Devin ChangMANUAL DIFF REQ NONormalThe St. Vincent HospitalComment on above:Performed By: #### CBC ####[facility] [address]fdrhspm[address] [place] [address]Dr. Devin SureshH (RBC) [Entitic mass]30.7 wjVocpto48.7-34.0The [facility] Comment on above:Performed By: #### CBC ####[facility] Rgpsfiudsb122771 [address] [place], [place] [address]Dr.Devin SureshHC (RBC) [Mass/Vol]33.8 g/dL Dokrws79.9-35.2The [facility] HospitalComment on above:Performed By: #### CBC ####[facility] Jdikvkkrxy870471 [address] [place], [place] [address]Dr. Devin SureshV (RBC) [Entitic vol]90.8 cISrjwrd88.0-99.0The [facility] Comment on above:Performed By: #### CBC ####[facility] Hjhluqfchy141671 [address] [place], [place] [address]Dr.Tishemily SureshMONO #0.4 103/ulNormal0.3-0.[address] [facility] HospitalComment on above:Performed By: #### CBC ####[facility] Twpfkypqqk229971 [address] [place], [place] [address]Dr.Tishemily Suresh Monocytes/100 WBC (Bld)7.6 %Normal1.7-12.0The [facility] HospitalComment on above: Performed By: #### CBC ####[facility] Khgcrttdsu263871 [address] [place], [place] [address]Dr.Devin KerwinNEUT #2.2 103/ulNormal1.4-6.5The [facility] HospitalComment on above:Performed By: #### CBC ####[facility] Tksagxwwxz487471 [address] [place], [place] [address]Dr.Devin KerwinNeutrophils/100 WBC (Bld)43.1 %Nczwpe63.0-75.0The [facility] HospitalComment on above:Performed By: #### CBC ####[facility] Zysqgagqkt036371 [address] [place], [place] [address]Dr.Tishemily SureshPlatelet mean volume (Bld) [Entitic vol]8.7 fLCritically low 9.5-13.5The [facility]. [facility] HospitalComment on above:Performed By: #### CBC ####[facility] Ckvjwcghup[address] [place] [address]Dr. Devin KisumCCY276 103/gcAhwmas759-705Ymp [facility] HospitalComsheridan community hospital on above: Performed By: #### CBC ####[facility] Cpgcbjbfcq756971 [address] [place], [place] [address]Dr.Devin ChangRBC3.26 106/ulCritically low4.20-5.40The [facility] HospitalComment on above:Performed By: #### CBC ####[facility] Zbpxxjfvde156071 [address] [place], [place] [address]Dr.Devin ChangWBC5.1 103/ul Normal4.0-11.0The [facility] HospitalComsheridan [facility] hospital on above:Performed By: #### CBC ####[facility] Okavlmiprn825871 [address] [place], [place] [address]Dr. Devin [facility] GLUCOSEon 76-86-7160Lbvhvsr [Mass/Vol]129 mg/dL Critically muaf45-944KvnLima Memorial HospitalComment on above:Performed By: #### POCGLUC ####[facility] Hrqhxusvmz1885[address] [place], [place] [address]Dr. Devin ChangGlucose [Mass/Vol]157 mg/dLCritically wqyc83-064Pgo [facility] on above:Performed By: #### POCGLUC ####[facility] Hhmxmerxha675671 [address] [place], [place] [address]Dr. Devin ChangGlucose [Mass/Vol]228 mg/dLCritically uhje54-885Ixs St[facility] HospitalComment on above: Performed By: #### POCGLUC ####[facility] Axhzakrhyr698[address] [place], [place] [address]Dr. Yilan ChangGlucose [Mass/Vol]327 mg/dLCritically mdyb05-449RfjLima Memorial HospitalComsheridan community hospital on above:Performed By: #### POCGLUC ####[facility] Zlphqpxrhh109871 [address] [place], [place] [address]Dr. Yilan ChangPROF 14(COMP METB)on 63-64-3204Edrzpdu [Mass/Vol]2.9 g/dLCritically low3.4-5.0The [facility] HospitalComment on above:Performed By: #### CMP ####[facility] Krqfdkxfsp4248 [place] [address]Dr. Yilan ChangAlbumin/Globulin [Mass ratio]1.1 {ratio}NormalThe [facility] Comment on above:Performed By: #### CMP ####[facility] Maudxzxdgg4169[address] [place], [place] [address]Dr.Yilan ChangALP [Catalytic activity/Vol]85 U/ICfwsbv66-923Inv St. [facility] HospitalComment on above:Performed By: #### CMP ####[facility] Aepmvizety229[address] [place], [place] [address]Dr. Yilan ChangALT [Catalytic activity/Vol]14 U/KVzqffg12-03Ieu [facility] Comment on above:Performed By: #### CMP ####[facility] Ehcouygfwc938671 [address] [place], [place] [address]Dr.Yiemily ChangAnion gap [Moles/Vol]13.3 mmol/LNormalThe St. Vincent HospitalComment on above:Performed By: #### CMP ####[facility] Vycsecafeo359071 [address] [place], [place] [address]Dr. Yilan ChangAST [Catalytic activity/Vol]11 U/LCritically lbs23-34Hgd St. [facility] HospitalComment on above:Performed By: #### CMP ####[facility] Rxlgyqqmag251471 [address] [place], [place] [address]Dr.Yilan ChangBilirubin [Mass/Vol]0.2 mg/dLNormal0.2-1.0The [facility] HospitalComment on above:Performed By: #### CMP ####[facility] Irmnglqsag973171 [address] [place], [place] [address]Dr.Yilan ChangCalcium [Mass/Vol]7.5 mg/dLCritically low8.5-10.1The [facility] HospitalComment on above:Performed By: #### CMP ####[facility] Jticoptbvi065571 [address] [place], [place] [address]Dr.Yilan ChangChloride [Moles/Vol]109 mmol/LCritically yaom69-915Wfx St[facility] HospitalComment on above: Performed By: #### CMP ####[facility] Vlhjwzmexz556671 [address] [place], [place] [address]Dr.Yilan ChangCO2 [Moles/Vol]21.6 mmol/LNormal 21.0-32.0The [facility] HospitalComment on above:Performed By: #### CMP ####[facility] Fltiuirvyk050271 [address] [place], [place] [address]Dr. Devin ChangCreatinine [Mass/Vol]1.15 mg/dLCritically high0.55-1.02The [facility] HospitalComment on above:Performed By: #### CMP ####[facility] Hpfjzrgvet463071 [address] [place], [place] [address]Dr.Tishlan ChangEGFR-AF NIUEAN>60Normal>=60The [facility]. [facility] HospitalComment on above:Performed By: #### CMP ####[facility] Reyljazavq530371 [address] [place], [place] [address]Dr. Tishlan ChangEGFR-NON AF UXBHUUMP01 mL/min/1.59v8Ersqwumjiv low>=60The [facility] HospitalComment on above:Performed By: #### CMP ####[facility] Ugaqybtvvg739571 [address] [place], [place] [address]Dr.Tishlan ChangGlobulin (S) [Mass/Vol]2.6 g/dLNormalThe St. [facility] HospitalComment on above:Performed By: #### CMP ####[facility] Pbcphsjfon747571 [address] [place], [place] [address]Dr.Tishlan ChangGlucose [Mass/Vol]268 mg/dLCritically edke34-904Bwa St[facility] HospitalComment on above:Performed By: #### CMP ####[facility] Silbddmceb961571 [address] [place], [place] [address]Dr.Yilan ChangPotassium [Moles/Vol]3.9 mmol/LNormal3.5-5.1The [facility] HospitalComment on above: Performed By: #### CMP ####[facility] Ejpwcgcxni635371 [address] [place], [place] [address]Dr.Yilan ChangProtein [Mass/Vol]5.5 g/dLCritically low 6.4-8.2The [facility] HospitalComment on above:Performed By: #### CMP ####[facility] Meyuvpubao392571 [address] [place], [place] [address]Dr.Devin Suresh Sodium [Moles/Vol]140 mmol/JGxrecz800-609Dtw St[facility] HospitalComment on above: Performed By: #### CMP ####[facility] Posvkruibx267771 [address] [place], [place] [address]Dr.Yilan ChangUrea nitrogen [Mass/Vol]13.0 mg/dLNormal 7.0-18.0The [facility] HospitalComment on above:Performed By: #### CMP ####[facility] Clszbiqfsh907371 [address] [place], [place] [address]Dr. Tishlan ChangUrea nitrogen/Creatinine [Mass ratio]11.3 mg/mgNormalThe St. [facility] HospitalComment on above:Performed By: #### CMP ####[facility] Rzxxnolaii746271 [address] [place], [place] [address]Dr.Tishlan ChangCBC AUTO DIFFon [id number] #0.0 103/ulNormal0.0-0.1The [facility] HospitalComment on above: Performed By: #### CBC ####[facility] Xgehofeshv793471 [address] [place], [place] [address]Dr.Yilan ChangBasophils/100 WBC (Bld)0.6 %Normal 0.2-2.0The [facility] HospitalComment on above:Performed By: #### CBC ####[facility] Wpwhffyzkb306871 [address] [place], [place] [address]Dr.Yilan ChangEO # 0.1 103/ulNormal0.0-0.7The [facility] HospitalComment on above:Performed By: #### CBC ####[facility] Qiqiuyavjr925771 [address] [place], [place] [address]Dr. Yilan ChangEosinophils/100 WBC (Bld)3.1 %Normal0.9-7.0The [facility] Comment on above:Performed By: #### CBC ####[facility] Tpvredzftp852971 [address] [place], [place] [address]Dr.Devin ChangErythrocyte distribution width (RBC) [Ratio]13.6 %Kzayhq08.0-15.0The [facility] HospitalComment on above: Performed By: #### CBC ####[facility] Wewcknxxgo976371 [address] [place], [place] [address]Dr.Devin ChangHematocrit (Bld) [Volume fraction]27.8 % Critically low36.0-48.0The [facility] HospitalComment on above:Performed By: #### CBC ####[facility] Qzxtpgcxvq365571 [address] [place], [place] [address]Dr. Tishemily ChangHemoglobin (Bld) [Mass/Vol]9.6 g/dLCritically low12.0-16.0The [facility] HospitalComment on above:Performed By: #### CBC ####[facility] Ygvrexbkvs512671 [address] [place], [place] [address]Dr.Yilan ChangIG #0.01 10e3/ulNormal0.00-0.03The [facility] HospitalComment on above:Performed By: #### CBC ####[facility] Zcpcbdhzfd750171 [address] [place], [place] [address]Dr. Devin ChangIG %0.3 %Normal0.0-0.5The [facility] HospitalComment on above:Performed By: #### CBC ####[facility] Ijmzwuzubu598871 [address] [place], [place] [address]Dr.Tishlan ChangLYMPH #1.5 103/ulNormal1.2-3.8The [facility] Comment on above:Performed By: #### CBC ####[facility] Wmyvkksmxr588271 [address] [place], [place] [address]Dr.Tishlan ChangLymphocytes/100 WBC (Bld)41.2 %Hyumiq03.5-60.0The [facility] HospitalComment on above:Performed By: #### CBC ####[facility] Iryzzzworw656971 [address] [place], [place] [address]Dr. Tishlan ChangMANUAL DIFF REQNONormalThe St. [facility] HospitalComment on above: Performed By: #### CBC ####[facility] Nrcliqcwdi5[address] [place] [address]Dr.Devin SureshH (RBC) [Entitic mass]31.0 pgNormal 26.7-34.0The [facility] HospitalComment on above:Performed By: #### CBC ####[facility] Xdzlvvnwus8972 [place] [address]Dr. Devin KerwinHC (RBC) [Mass/Vol]34.5 g/bBHrofvc55.9-35.2The [facility] Comment on above:Performed By: #### CBC ####[facility] Fvznzanpqc601271 [address] [place], [place] [address]Dr.Tishemily SureshMCV (RBC) [Entitic vol]89.7 fL Sjqqgw06.0-99.0The [facility] HospitalComment on above:Performed By: #### CBC ####[facility] Tziufyhtwj929471 [address] [place], [place] [address]Dr. Tishemily SureshMONO #0.4 103/ulNormal0.3-0.8The [facility] HospitalComment on above: Performed By: #### CBC ####[facility] Dfrzuezfmy800671 [address] [place], [place] [address]Dr.Tishemily SureshMonocytes/100 WBC (Bld)10.0 %Normal 1.7-12.0The [facility] HospitalComment on above:Performed By: #### CBC ####[facility] Tuzwcjfgii565771 [address] [place], [place] [address]Dr. Devin KerwinNEUT #1.6 103/ulNormal1.4-6.5The [facility] HospitalComment on above: Performed By: #### CBC ####[facility] Zkqkdxsfau514871 [address] [place], [place] [address]Dr.Tishemily SureshNeutrophils/100 WBC (Bld)44.8 %Normal 43.0-75.0The [facility] HospitalComment on above:Performed By: #### CBC ####[facility] Erbipijdei458271 [address] [place], [place] [address]Dr. Devin KerwinPlatelet mean volume (Bld) [Entitic vol]8.7 fLCritically low9.5-13.5 The [facility] HospitalComment on above:Performed By: #### CBC ####[facility] Hxnwkzyhuf309071 [address] [place], [place] [address]Dr.Devin SureshPLT185 103/joDhmeld292-510Lpy [facility] HospitalComment on above:Performed By: #### CBC ####[facility] Gmqiuyyxxl671371 [address] [place], [place] [address]Dr. Devin SureshRBC3.10 106/ulCritically low4.20-5.40The [facility] HospitalComment on above:Performed By: #### CBC ####[facility] Qmlfgdgyxh102171 [address] [place], [place] [address]Dr.Devin SureshWBC3.6 103/ulCritically low4.0-11.0The [facility] HospitalComment on above:Performed By: #### CBC ####[facility] Vkmgkiyvzz995471 [address] [place], [place] [address]DrGonzalo Sun PANEL (PCR) on 50-24-4541Smnpugjpzc F 40/41Not detectedNormalNOT DETECTEDThe St. [facility] HospitalComment on above:Performed By: #### ASHLEYL ####[facility] Odbspvsuip0923[address] [place], [place] [address]Dr. Devin SureshAstrovirusNot detectedNormalNOT DETECTEDThe St. [facility] HospitalComment on above:Performed By: #### ASHLEYL ####[facility] Mqffohmgdg642971 [address] [place], [place] [address]Dr. Devin Nice. Diff toxin A/BNot detectedNormalNOT DETECTEDThe St. [facility] HospitalComment on above:Performed By: #### BRENDAANEL ####[facility] Thkpguokfg787771 [address] [place], [place] [address]Dr. Devin Washburnpylobacter Not detectedNormalNOT DETECTEDThe St. [facility] HospitalComment on above:Performed By: #### BRENDAANEL ####[facility] Twgvzlwqzv735[address] [place], [place] [address]Dr. Devin SureshCryptosporidiumNot detectedNormalNOT DETECTEDThe St. [facility] HospitalComment on above:Performed By: #### BRENDAANEL ####[facility] Cgxggcduoj7437 [place] [address]Dr. Devin Suresh Cyclos. CayetanensisNot detectedNormalNOT DETECTEDThe St. [facility] HospitalComment on above:Performed By: #### BRENDAANEL ####[facility] Dfqidgkmcm6242 [place] [address]Dr. Yilan ChangE. Coli E277Aer ApplicableNormal Not ApplicableThe St. [facility] HospitalComment on above:Performed By: #### GIPANEL ####[facility] Bavmdvrivl8540 [place] [address]Dr. Yilan ChangE. histolyticaNot detectedNormalNOT DETECTEDThe [facility] Comment on above:Performed By: #### ASHLEYL ####[facility] Vfwqpwnxsm7768[address] [place], [place] [address]Dr. Yilan ChangEAECNot detectedNormalNOT DETECTEDThe St. [facility] HospitalComment on above:Performed By: #### ASHLEYL ####[facility] Dojybqqzlo08[address] [place], [place] [address]Dr. Yilan ChangEIECNot detectedNormalNOT DETECTEDThe St. [facility] HospitalComment on above:Performed By: #### ASHLEYL ####[facility] Pvxqupqmts246[address] [place], [place] [address]Dr. Yilan ChangEPECNot detectedNormalNOT DETECTEDThe St. [facility] HospitalComment on above:Performed By: #### ASHLEYL ####[facility] Disjcxhder5345[address] [place], [place] [address]Dr. Yilan ChangETEC Not detectedNormalNOT DETECTEDThe St. [facility] HospitalComment on above:Performed By: #### BRENDAANEL ####[facility] Lbmeqdleei98[address] [place] [address]Dr. Devin SureshG. LambliaNot detectedNormalNOT DETECTEDThe St. [facility] HospitalComment on above:Performed By: #### BRENDAANEL ####[facility] Nzpvkzizrs401[address] [place], [place] [address]Dr. Devin ChangGIPANEL CONTROLSPASSEDNormalThe St. [facility] HospitalComment on above:Performed By: #### ANNE ####[facility] Ovsthxjzve7[address] [place] [address]Dr. Devin HuangL EVIN HEADERGI PANEL [facility] Comment on above:Performed By: #### ANNE ####[facility] Qeukhjywoj36[address] [place] [address]Dr. Devin HuangLHD ECOLIGI PANEL DIARRHEAGENIC E.COLI / SHIGELLACleveland Clinic South Pointe HospitalComment on above: Performed By: #### ANNE ####[facility] Hjeqaszokz936[address] [place], [place] [address]Dr. Devin HuangLHD INFOSEE BELOWCleveland Clinic South Pointe HospitalComsheridan community hospital on above:Result Comment: EAEC- Enteroaggregative E. Coli EPEC- Enteropathogenic E. Coli ETEC- Enterotoxigenic E. Coli lt/st STEC- Shigella-like toxin-producing E. Coli stx1/stx2 EIEC- Shigella/Enteroinvasive E. ColiPerformed By: #### ANNE ####[facility] Njkypvaifn688[address] [place], [place] [address]Dr. Devin HuangLHD PARASITESGI PANEL PARASITESCleveland Clinic South Pointe HospitalComment on above:Performed By: #### ANNE ####[facility] Xeopohxpxo6842 [place] [address]Dr. Devin HuangLHD VIRUS GI PANEL VIRUSESCleveland Clinic South Pointe HospitalComment on above:Performed By: #### ANNE ####[facility] Prtevuzcqu7[address] [place], [place] [address]Dr. Devin ChangNorovirus GI/GIINot detectedNormalNOT DETECTEDThe St. [facility] HospitalComsheridan community hospital on above:Performed By: #### ANNE ####[facility] Bhqvpnqsev0705[address] [place], [place] [address]Dr. Devin Fleming. ShigelloidesNot detectedNormalNOT DETECTEDThe St. [facility] HospitalComsheridan community hospital on above: Performed By: #### ANNE ####[facility] Tutzrvwkue5[address] [place] [address]Dr. Devin ChangRotavirus ANot detectedNormalNOT DETECTEDThe St. [facility] HospitalComment on above:Performed By: #### GIPANEL ####[facility] Jswkuaddyw926[address] [place], [place] [address]Dr. Yilan ChangSalmonellaNot detectedNormalNOT DETECTEDThe St. [facility] HospitalComment on above:Performed By: #### GIPANEL ####[facility] Jhwqzrabdf8067[address] [place], [place] [address]Dr. Tishlan ChangSapovirusNot detectedNormalNOT DETECTEDThe St. [facility] HospitalComment on above:Performed By: #### GIPANEL ####[facility] Krgqbcrlhl965[address] [place], [place] [address]Dr. Devin ChangSTECNot detectedNormalNOT DETECTEDThe St. [facility] HospitalComsheridan community hospital on above:Performed By: #### GIPANEL ####[facility] Uietasmuna325[address] [place], [place] [address]Dr. Devin ChangVibrioNot detectedNormalNOT DETECTEDThe St. [facility] HospitalComment on above:Performed By: #### GIPANEL ####[facility] Knapktkzlt108[address] [place], [place] [address]Dr. Devin Suresh Vibrio CholeraNot detectedNormalNOT DETECTEDThe St. [facility] HospitalComsheridan community hospital on above:Performed By: #### GIPANEL ####[facility] Mekvrmitjs9895[address] [place], [place] [address]Dr. Devin SureshY. EnterocoliticaNot detectedNormalNOT DETECTEDThe [facility] HospitalComsheridan community hospital on above:Performed By: #### GIPANEL ####[facility] Kmnxwqswgk8440[address] [place], [place] [address]Dr. Devin SureshPOINT [facility] GLUCOSEon 92-72-9087Trvdtbx [Mass/Vol]199 mg/dL Critically qxmd09-795VtpLima Memorial HospitalComment on above:Performed By: #### POCGLUC ####[facility] Robldjmctq817[address] [place], [place] [address]Dr. Devin ChangGlucose [Mass/Vol]193 mg/dLCritically afvr16-000Rao [facility] HospitalComment on above:Performed By: #### POCGLUC ####[facility] Ybsjqanptw0249[address] [place], [place] [address]Dr. Yilan ChangGlucose [Mass/Vol]276 mg/dLCritically wclq87-919Lwg [facility] HospitalComment on above: Performed By: #### POCGLUC ####[facility] Fpbahqghtf885[address] [place], [place] [address]Dr. Yilan ChangPROF 14(COMP METB)on 98-91-6056Oimtwba [Mass/Vol]2.8 g/dLCritically low3.4-5.0The [facility] HospitalComment on above: Performed By: #### CMP ####[facility] Cchjauahvy039[address] [place], [place] [address]Dr.Yilan ChangAlbumin/Globulin [Mass ratio]1.1 {ratio} NormalThe St. Vincent HospitalComment on above:Performed By: #### CMP ####[facility] Sramsktihy707[address] [place], [place] [address]Dr.Yilan ChangALP [Catalytic activity/Vol]85 U/RTrjhjc72-018Yvy [facility] HospitalComment on above: Performed By: #### CMP ####[facility] Iluqnrvyep067171 [address] [place], [place] [address]Dr.Yilan ChangALT [Catalytic activity/Vol]13 U/L Critically oli96-69Vcd [facility] HospitalComment on above:Performed By: #### CMP ####[facility] Xvueblhteo129171 [address] [place], [place] [address]Dr. Yilan ChangAnion gap [Moles/Vol]10.2 mmol/LNormalThe [facility] HospitalComment on above:Performed By: #### CMP ####[facility] Tjdxtubsed834171 [address] [place], [place] [address]Dr.Yilan ChangAST [Catalytic activity/Vol]12 U/L Critically cjq69-41Pln [facility] HospitalComment on above:Performed By: #### CMP ####[facility] Uphokvwios226971 [address] [place], [place] [address]Dr. Yilan ChangBilirubin [Mass/Vol]0.3 mg/dLNormal0.2-1.0The [facility] Comment on above:Performed By: #### CMP ####[facility] Epvetyrbll6126 [place] [address]Dr.Yilan ChangCalcium [Mass/Vol]7.4 mg/dL Critically low8.5-10.1The [facility] HospitalComment on above:Performed By: #### CMP ####[facility] Hwzduuhedr596[address] [place], [place] [address]Dr. Yilan ChangChloride [Moles/Vol]107 mmol/GQjwvda31-677Uhc [facility] Comment on above:Performed By: #### CMP ####[facility] Gggiikibun806671 [address] [place], [place] [address]Dr.Yilan ChangCO2 [Moles/Vol]23.4 mmol/L Mlbmnb10.0-32.0The [facility] HospitalComment on above:Performed By: #### CMP ####[facility] Weakqqgbrr5085[address] [place], [place] [address]Dr. Yilan ChangCreatinine [Mass/Vol]1.23 mg/dLCritically high0.55-1.02The [facility] HospitalComment on above:Performed By: #### CMP ####[facility] Lkqugblxel258171 [address] [place], [place] [address]Dr.Yilan ChangEGFR-AF WWPHZHQK83 mL/min/1.05d0Jdyinznsku low>=60The [facility] HospitalComment on above: Performed By: #### CMP ####[facility] Gejjmoebur1924[address] [place], [place] [address]Dr.Yilan ChangEGFR-NON AF EFKGVFAN31 mL/min/1.73m2 Critically low>=60The [facility] HospitalComment on above:Performed By: #### CMP ####[facility] Dmqafgviii407[address] [place], [place] [address]Dr. Yilan ChangGlobulin (S) [Mass/Vol]2.5 g/dLNormalThe St. [facility] HospitalComment on above:Performed By: #### CMP ####[facility] Umkfhsikgo6212[address] [place], [place] [address]Dr.Yilan ChangGlucose [Mass/Vol]284 mg/dLCritically pobo14-770Rrl [facility] HospitalComment on above:Performed By: #### CMP ####[facility] Vbswgxsdth575[address] [place], [place] [address]Dr. Devin ChangPotassium [Moles/Vol]3.6 mmol/LNormal3.5-5.1The [facility] Comment on above:Performed By: #### CMP ####[facility] Dqsttvsyer010[address] [place], [place] [address]Dr.Yilan ChangProtein [Mass/Vol]5.3 g/dL Critically low6.4-8.2The [facility] HospitalComment on above:Performed By: #### CMP ####[facility] Kmthrvcpsf9789[address] [place], [place] [address]Dr. Yilan ChangSodium [Moles/Vol]137 mmol/COhdrwp118-308Spx [facility] HospitalComment on above:Performed By: #### CMP ####[facility] [facility] [address] [place], [place] [address]Dr.Tishlan ChangUrea nitrogen [Mass/Vol]14.0 mg/dLNormal 7.0-18.0The [facility] HospitalComment on above:Performed By: #### CMP ####[facility] Xgnmgslkoj7465[address] [place], [place] [address]Dr. Tishlan ChangUrea nitrogen/Creatinine [Mass ratio]11.4 mg/mgNormalThe St. Vincent HospitalComment on above:Performed By: #### CMP ####[facility] Qduiqacwxp0628[address] [place], [place] [address]Dr.Devin ChangBNPon 88-95-0437Bsaxrzweetk peptide B (Bld) [Mass/Vol]84.0 pg/mLNormal<=450.0The [facility]. [facility] HospitalComment on above:Performed By: #### CMADM, CMP, BNP, CRP ####[facility] Wusepbgoht2295[address] [place], [place] [address]Dr. Tishemily ChangCARDIAC LAURA ADMITon 30-85-5852TQ [Catalytic activity/Vol]46 U/L Raskcq90-478Pko St. [facility] HospitalComment on above:Performed By: #### CMADM, CMP, BNP, CRP ####[facility] [address]nqtgive[address] [place] [address]Dr. Devin SureshCK.MB [Mass/Vol]ng/mLNormal<=3.60The [facility] Comment on above:Performed By: #### CMADM, CMP, BNP, CRP ####[facility] Mfbgqyfalc[address] [place], [place] [address]Dr. Devin SureshHSTROP6.5 pg/mLNormal4.0-51.3The [facility] HospitalComment on above:Result Comment: CUT-OFF POINTS HAVE BEEN ESTABLISHED BASED ON THE FOURTH UNIVERSAL DEFINITIONS OF MY OCARDIALINFARCTION. THE UPPER REFERENCE LIMIT (URL) OF TROPONIN, DEFINED THE 99TH PERCENTILE OFcTnI DISTRIBUTION IN A REFERENCE POPULATION, HAS BEEN CONFIRMED THE DECISION THRESHOLDFOR [place] DIAGNOSIS.Performed By: #### CMADM, CMP, BNP, CRP ####[facility] Yptxjnapnw998[address] [place], [place] [address]Dr. Devin SureshMYO75 ng/mLNormal9-82The [facility] HospitalComment on above:Performed By: #### CMADM, CMP, BNP, CRP ####[facility] Xgpxcssvvv2865[address] [place], [place] [address]Dr. Devin SureshCBC AUTO DIFF on 81-87-9439MAMK #0.0 103/ulNormal0.0-0.1The [facility] HospitalComment on above: Performed By: #### CBC ####[facility] Cciglzbcwl589[address] [place], [place] [address]Dr.Devin ChangBasophils/100 WBC (Bld)0.4 %Normal 0.2-2.0The [facility] HospitalComment on above:Performed By: #### CBC ####[facility] Dzuxrtchcj8090[address] [place], [place] [address]Dr.Devin ChangEO # 0.1 103/ulNormal0.0-0.7The [facility] HospitalComment on above:Performed By: #### CBC ####[facility] Hqxbuxpybe655[address] [place], [place] [address]Dr. Devin ChangEosinophils/100 WBC (Bld)1.4 %Normal0.9-7.0The [facility] Comment on above:Performed By: #### CBC ####[facility] Mjwxqsmjkt1529[address] [place], [place] [address]Dr.Devin ChangErythrocyte distribution width (RBC) [Ratio]13.3 %Kqcjaj73.0-15.0The [facility] HospitalComment on above: Performed By: #### CBC ####[facility] Xjuajgasex796[address] [place], [place] [address]Dr.Dvein ChangHematocrit (Bld) [Volume fraction]33.4 % Critically low36.0-48.0The [facility] HospitalComment on above:Performed By: #### CBC ####[facility] Ruczhoihos2527[address] [place], [place] [address]Dr. Devin ChangHemoglobin (Bld) [Mass/Vol]11.6 g/dLCritically low12.0-16.0The [facility] HospitalComment on above:Performed By: #### CBC ####[facility] Lssnqhzmsi5785[address] [place], [place] [address]Dr.Yilan ChangIG #0.01 10e3/ulNormal0.00-0.03The [facility] HospitalComment on above:Performed By: #### CBC ####[facility] Dtosngahlw3977[address] [place], [place] [address]Dr. Yilan ChangIG %0.2 %Normal0.0-0.5The [facility] HospitalComment on above:Performed By: #### CBC ####[facility] Laqbvwqlch8749[address] [place], [place] [address]Dr.Yilan ChangLYMPH #1.3 103/ulNormal1.2-3.8The [facility] Comment on above:Performed By: #### CBC ####[facility] Sbnyubzcqm008271 [address] [place], [place] [address]Dr.Yilan ChangLymphocytes/100 WBC (Bld)24.5 %Lnxqnh71.5-60.0The [facility] HospitalComment on above:Performed By: #### CBC ####[facility] [address]qkfh[address] [place] [address]Dr. Devin ChangMANUAL DIFF REQNONormalThe St. Vincent HospitalComment on above: Performed By: #### CBC ####[facility] Kkdjoddara445[address] [place], [place] [address]Dr.Devin SureshH (RBC) [Entitic mass]30.5 pgNormal 26.7-34.0The [facility] HospitalComment on above:Performed By: #### CBC ####[facility] Nqkuaezows415[address] [place], [place] [address]Dr. Devin SureshHC (RBC) [Mass/Vol]34.7 g/pBNcrcsk11.9-35.2The [facility] Comment on above:Performed By: #### CBC ####[facility] Clpwdjczse5960[address] [place], [place] [address]Dr.Devin SureshV (RBC) [Entitic vol]87.9 fL Bpydgi26.0-99.0The [facility] HospitalComment on above:Performed By: #### CBC ####[facility] Dwpkedzoyd526[address] [place], [place] [address]Dr. Devin SureshMONO #0.4 103/ulNormal0.3-0.8The [facility] HospitalComment on above: Performed By: #### CBC ####[facility] Bnnptfoycb9739[address] [place], [place] [address]Dr.Devin ChangMonocytes/100 WBC (Bld)8.4 %Normal 1.7-12.0The [facility] HospitalComment on above:Performed By: #### CBC ####[facility] Unqdurftpv8911[address] [place], [place] [address]Dr. Devin ChangNEUT #3.4 103/ulNormal1.4-6.5The [facility] HospitalComment on above: Performed By: #### CBC ####[facility] Auttjuoalw875[address] [place], [place] [address]Dr.Devin ChangNeutrophils/100 WBC (Bld)65.1 %Normal 43.0-75.0The [facility] HospitalComment on above:Performed By: #### CBC ####[facility] Xhbomnqrsb[address] [place] [address]Dr. Tishlan KerwinPlatelet mean volume (Bld) [Entitic vol]8.8 fLCritically low9.5-13.[address] [facility] HospitalComment on above:Performed By: #### CBC ####[facility] Nlhjluvtgl280[address] [place], [place] [address]Dr.Yilan ZfvxoGKG268 103/kpJwgtrf828-813Jqx St. [facility] HospitalComment on above:Performed By: #### CBC ####[facility] Ykglmhhupw0320[address] [place], [place] [address]Dr. Yilan ChangRBC3.80 106/ulCritically low4.20-5.40The [facility] HospitalComment on above:Performed By: #### CBC ####[facility] Raeuxeagdv098[address] [place], [place] [address]Dr.Devin ChangWBC5.1 103/ulNormal4.0-11.0The [facility] HospitalComment on above:Performed By: #### CBC ####[facility] Heqlartict555[address] [place], [place] [address]Dr.Devin ChangCRPon 38-48-1813BYU2.4 mg/dLCritically high<=1.0The [facility] Hospitalment on above: Performed By: #### CMADM, CMP, BNP, CRP ####[facility] Hxwznrafaj56[address] [place], [place] [address]Dr. Devin SureshCULTURE BLOODon 08-02-2022 Microscopic examination of blood, cultureCulture Observations: NO GROWTH AT [address] [facility] HospitalComment on above:Performed By: #### BLDCX2 ####[facility] Sxvypriebj[address] [place], [place] [address]Dr. Devin SureshMicroscopic examination of blood, cultureCulture Observations: NO GROWTH AT [address] [facility] HospitalComment on above:Performed By: #### BLDCX1 ####[facility] Klarzlyxft8[address] [place], [place] [address]Dr. Yilan ChangCULTURE URINEon 70-14-2061XCFYWJT URINECulture Observations: LIGHT GROWTH OF MIXED GENITAL ERIC. NO POTENTIAL PATHOGENS SEEN.NormalThe St. [facility] HospitalComment on above:Performed By: #### URCX ####[facility] Niagdldqsm024[address] [place], [place] [address]Nw. Devin ChangCovid-19 PCR (CVDTB)on 24-45-7741TCMO-CoV-2 (COVID-19) RNA EBONIE+probe Ql (Unsp spec)Not detectedNormalNOT DETECTEDThe St. [facility] HospitalComment on above:Result Comment: When diagnostic testing [...] for this test is supported by the Cool of Health and Human Service's declaration that [...] no longer be used).Performed By: #### CVDTBH ####[facility] Xnflzxkouo9025 [place], [place] [address]Vk. Yilan ChangER URINE PROFILEon 00-42-2132Bbzofdvfe Ql (U)NegativeNormal NEGATIVEThe St. [facility] HospitalComment on above:Performed By: #### REAGAN NEWSOMERO ####[facility] Mjgzpalqxv9[address] [place], [place]Dr. Yilan ChangClarity (U)CLEARNormalCLEARThe St. [facility] HospitalComment on above: Performed By: #### MERCEDEZ UMICRO ####[facility] Bgotqcqkqe6714 [place], [place]Dr. Yilan ChangColor (U)LT. YELLOWNormalYELLOWTuscarawas Hospital HospitalComment on above:Performed By: #### REAGAN NEWSOMERO ####[facility] Jgrzbgdram[address] [place], [place] [address]Dr. Devin Dodson A micrscopic examination will be performed if indicated.NormalThe [facility] HospitalComment on above:Performed By: #### MERCEDEZ UMICRO ####[facility] Njsoilatfl[address] [place], [place] [address]Dr. Yilan ChangGlucose Ql (U) >1000AbnormalNEGATIVEThe [facility] HospitalComment on above:Performed By: #### MERCEDEZ UMICRO ####[facility] Rkpgfcpnfg460[address] [place], [place] [address]Dr. Yilan ChangHemoglobin Ql (U)TRACE-LYSEDAbnormalNEGATIVETuscarawas Hospital HospitalComment on above:Performed By: #### GEORGE NEWSOMEICRO ####[facility] Bnoctkzura[address] [place], [place] [address]r. Yilan ChangKetones Ql (U) NegativeNormalNEGATIVETuscarawas Hospital HospitalComment on above:Performed By: #### GEORGE NEWSOMEICRO ####[facility] Gkqbippnvk105[address] [place], [place] [address]Dr. Yilan ChangLEUKOCYTESNegativeNormalNEGATIVETuscarawas Hospital HospitalComment on above:Performed By: #### GEORGE NEWSOMEICRO ####[facility] Mteiomeyzr[address] [place], [place] [address]Dr. Yilan ChangNitrite Ql (U)NegativeNormal NEGATIVETuscarawas Hospital HospitalComment on above:Performed By: #### MERCEDEZ UMICRO ####[facility] Joyrudighb[address] [place], [place] [address]Dr. Yilan ChangpH (U)6.0 [pH]Normal5-9[facility] HospitalComment on above: Performed By: #### MERCEDEZ UMICRO ####[facility] Bxblxfeovj3586[address] [place], [place] [address]Dr. Yilan ChangSPEC GRAVITY1.258Usmzko5.005-<=1.025The [facility] HospitalComment on above:Performed By: #### REAGAN NEWSOMERO ####[facility] Bmhmliwego0777 [address] Yilan ChangUA PROTEINNegativeNormalNEGATIVE/ TRACEThe [facility] HospitalComment on above: Performed By: #### REAGAN NEWSOMERO ####[facility] Zrmdsmxhxe4436 [address] Devin SureshUR MICRO INDINDICATEDNormalThe St. [facility] HospitalComment on above:Performed By: #### REAGAN NEWSOMERO ####[facility] Jwyonzbooo[address] [place], [place] [address]r. Devin SureshUrobilinogen Qn (U)0.2 {Sheyla'U}/dLNormal0.2 - 1.0The [facility] HospitalComment on above: Performed By: #### REAGAN NEWSOMERO ####[facility] Ythbmvioqx[address] [place], [place] [address]r. Devin ChangLACTATE/LACTIC ACIDon 16-99-1552Ltuzusj [Moles/Vol]1.2 mmol/LNormal0.4-2.0[facility] HospitalComment on above: Performed By: #### LACT ####[facility] Azbpdkgbyy5826[address] [place], [place] [address]Dr. Devin ChangLactate [Moles/Vol]3.1 mmol/LCritically high0.4-2.0The [facility] HospitalComment on above:Performed By: #### LACT ####[facility] Tyfsehxbsf659[address] [place], [place] [address]Dr. Devin SureshPOINT OF CARE GLUCOSEon 56-02-7320Cjmzjpw [Mass/Vol]293 mg/dL Critically vnmk23-932PxeLima Memorial HospitalComment on above:Performed By: #### POCGLUC ####[facility] Lrsszhmfzx177[address] [place], [place] [address]Dr. Devin ChangPOCGLUC>600Critically diev18-532Mxq St. [facility] HospitalComment on above:Result Comment: Lab Draw OrderedPerformed By: #### POCGLUC ####[facility] [address]rknyrpqtu[address] [place] [address]Dr. Yilan ChangPROF 14(COMP METB)on 77-54-0461Exjryky [Mass/Vol]3.6 g/dLNormal 3.4-5.0The [facility] HospitalComment on above:Performed By: #### CMADM, CMP, BNP, CRP ####[facility] Qhzstpcrqs036[address] [place] [address]Dr. Yilan ChangAlbumin/Globulin [Mass ratio]1.2 {ratio}NormalThe St. [facility] HospitalComment on above:Performed By: #### CMADM, CMP, BNP, CRP ####[facility] Lsscjylvgp4[address] [place] [address]Dr. Yilan ChangALP [Catalytic activity/Vol]113 U/SRrzesk04-139Uip [facility] HospitalComment on above:Performed By: #### CMADM, CMP, BNP, CRP ####[facility] Bwjbjduugp[address] [place], [place] [address]Dr. Yilan ChangALT [Catalytic activity/Vol]12 U/LCritically ago06-42Pey St. [facility] HospitalComment on above: Performed By: #### CMADM, CMP, BNP, CRP ####[facility] [address]wbnzkzjbq7[address] [place] [address]Dr. Yilan ChangAnion gap [Moles/Vol]15.4 mmol/LNormalThe St. [facility] HospitalComment on above:Performed By: #### CMADM, CMP, BNP, CRP ####[facility] Gpiaeuulrz6[address] [place] [address]Dr. Yilan ChangAST [Catalytic activity/Vol]13 U/LCritically llc47-90Ilk [facility] HospitalComment on above:Performed By: #### CMADM, CMP, BNP, CRP ####[facility] Uumbsbdphh10[address] [place] [address]Dr. Yilan ChangBilirubin [Mass/Vol]0.5 mg/dLNormal0.2-1.0The [facility] Comment on above:Performed By: #### CMADM, CMP, BNP, CRP ####[facility] Pzeamooflq8[address] [place] [address]Dr. Yilan ChangCalcium [Mass/Vol]8.4 mg/dLCritically low8.5-10.1The [facility] HospitalComment on above: Performed By: #### CMADM, CMP, BNP, CRP ####[facility] Iiuvztxogt17[address] [place] [address]Dr. Yilan ChangChloride [Moles/Vol]96 mmol/L Critically oax18-291Oti [facility] HospitalComment on above:Performed By: #### CMADM, CMP, BNP, CRP ####[facility] Abxhohkory5786[address] [place], [place] [address]Dr. Yilan ChangCO2 [Moles/Vol]21.8 mmol/LNormal 21.0-32.0The [facility] HospitalComment on above:Performed By: #### CMADM, CMP, BNP, CRP ####[facility] Kasxtyoevl74[address] [place], [place] [address]Dr. Yilan ChangCreatinine [Mass/Vol]1.54 mg/dLCritically high0.55-1.02The [facility] Hospitalment on above:Performed By: #### CMADM, CMP, BNP, CRP ####[facility] Lpyqviiuqa57[address] [place] [address]Dr. Yilan ChangEGFR-AF JYOVOBSO85 mL/min/1.10t0Xwuhwwcbvw low>=60The [facility] Hospitalment on above:Performed By: #### CMADM, CMP, BNP, CRP ####[facility] Bcwxsczotx47[address] [place] [address]Dr. Yilan ChangEGFR- NON AF JYIQSRBE06 mL/min/1.83w2Xzdtrpxmhu low>=60The [facility] Hospitalment on above:Performed By: #### CMADM, CMP, BNP, CRP ####[facility] Bocyccwexn596[address] [place], [place] [address]Dr. Yilan ChangGlobulin (S) [Mass/Vol]3.1 g/dLNormalThe St. [facility] HospitalComment on above:Performed By: #### CMADM, CMP, BNP, CRP ####[facility] Ewwejrmhxo[address] [place] [address]Dr. Yilan ChangGlucose [Mass/Vol]562 mg/dLCritically sacu58-073Myt [facility] HospitalComsheridan [facility] on above:Performed By: #### CMADM, CMP, BNP, CRP ####[facility] Hzpyakxtjv6986 [place] [address]Dr. Yilan ChangPotassium [Moles/Vol]4.2 mmol/LNormal3.5-5.1The [facility] HospitalComsheridan community hospital on above:Performed By: #### CMADM, CMP, BNP, CRP ####[facility] Gaatgshkqj693[address] [place], [place] [address]Dr. Yilan Suresh Protein [Mass/Vol]6.7 g/dLNormal6.4-8.2The [facility] HospitalComment on above: Performed By: #### CMADM, CMP, BNP, CRP ####[facility] Vtajzpuhcs8[address] [place], [place] [address]Dr. Yilan ChangSodium [Moles/Vol]129 mmol/L Critically mmt844-544Tvn [facility] on above:Performed By: #### CMADM, CMP, BNP, CRP ####[facility] Aovvzksqhm01[address] [place] [address]Dr. Yilan ChangUrea nitrogen [Mass/Vol]18.0 mg/dL Normal7.0-18.0The [facility] HospitalComsheridan [facility] hospital on above:Performed By: #### CMADM, CMP, BNP, CRP ####[facility] Uvqyfugrsm5899[address] [place], [place] [address]Dr. Yilan ChangUrea nitrogen/Creatinine [Mass ratio]11.7 mg/mgNormal The [facility] HospitalComment on above:Performed By: #### CMADM, CMP, BNP, CRP ####[facility] Jcrkmdlcdf0859[address] [place], [place] [address]Dr. Yilan ChangPROTIMEon 77-27-7468ELW Coag (PPP) [Relative time]0.96 {INR}NormalThe [facility] HospitalComment on above:Performed By: #### PT, PTT ####[facility] Wiquxlkqsb596[address] [place], [place] [address]Dr. Devin SureshINR GUIDELINESSEE [facility] on above:Result Comment: DESIRED INR: 2.0 - 3.0 CONDITIONS NOT LISTED BELOW 2.5 - 3.5 FOR PROSTHETIC HEART VALVE REPLACEMENT 2.5 - 3.5 RECURRENT THROMBOSISPerformed By: #### PT, PTT ####[facility] Bzqkqrvyan9299[address] [place], [place] [address]Dr. Devin SureshPT Coag (PPP) [Time]10.2 sNormal9.0-11.6The [facility] on above:Performed By: #### PT, PTT ####[facility] Fgpsexouxk1267[address] [place], [place] [address]Dr. Devin SureshPTTon 24-20-8021mMBL Coag (Bld) [Time]26.4 sXnppes97.3-36.2The [facility] on above:Performed By: #### PT, PTT ####[facility] Yopiceynki179[address] [place], [place] [address]Dr. Devin SureshSED RATE WESTERGRENon 72-29-8573JKV RATE22 mm/hrCritically high<=20The [facility] on above:Performed By: #### SEDR ####[facility] Gmzkwfspns04[address] [place], [place] [address]Dr. Devin SureshURINE MICROSCOPIC ONLYon 86-05-9332LVHSXICYXYRNABbjbbpqrRRVL SEENLima Memorial HospitalComsheridan community hospital on above:Performed By: #### GEORGE NEWSOMEICRO ####[facility] Nswxfdatun[address] [place], [place] [address]Dr. Devin Suresh Bacteria identified Cx Nom (U)INDICATEDNoRegional Medical CenterComsheridan community hospital on above:Performed By: #### MERCEDEZ UMICRO ####[facility] Qdguigkqbj64[address] [place] [address]Dr. Devin SureshCASTNONE SEENNormalNONE SEENLima Memorial HospitalComsheridan community hospital on above:Performed By: #### MERCEDEZ UMICRO ####[facility] Wuffhyzhva0171 [place] [id number]. Devin Suresh Crystals LM Nom (Urine sed)NONE SEENNormalNONE SEENLima Memorial HospitalComment on above:Performed By: #### MERCEDEZ UMICRO ####[facility] Fculoxhlue97[address] [place] [id number]. Devin ChangEpithelial cells LM Ql (Urine sed)RARENormalNONE SEEN /RAREThe St. [facility] HospitalComment on above:Performed By: #### MERCEDEZ UMICRO ####[facility] Ooytkmmtlt37[address] [place] [id number]. Devin ChangMUCOUSNONE SEENNormalNONE SEENLima Memorial HospitalComsheridan community hospital on above:Performed By: #### MERCEDEZ UMICRO ####[facility] Qqafxkehxz8437 [place] [address]Dr. Devin ChangRBC0-2 Normal0-2The [facility] HospitalComsheridan community hospital on above:Performed By: #### MERCEDEZ UMICRO ####[facility] Wgtyuyskyw98[address] [place] [address]Dr. Devin ChangWBCNONE SEENNormalNONE SEENLima Memorial HospitalComsheridan community hospital on above: Performed By: #### MERCEDEZ UMICRO ####[facility] Iqqfbhysqi8923 [place] [id number]. Devin ChangYEASTPRESENTAbnormalNONE SEENLima Memorial HospitalComsheridan community hospital on above:Performed By: #### MERCEDEZ UMICRO ####[facility] Wgfydmolhb3715 [place] [id number]. Devin ChangXR CHEST 1 Von 19-69-9044MX CHEST 1 VNormalLima Memorial HospitalXR FOOT LT MIN 3 VIEWSon 10-83-1010DJ FOOT LT MIN 3 VIEWSNormalThAvita Health System Bucyrus HospitalBLOOD CULTURE ID PANELon 07-30-2022. baumanniiNot detectedNormalNOT DETECTEDThe St. [facility] HospitalComsheridan community hospital on above:Performed By: #### BCID2 ####[facility] Hqubtloxll034[address] [place] [address]Dr. Yiemily ChangBacteriodes fragilisNot detectedNormalNOT DETECTEDThe St. [facility] HospitalComment on above: Performed By: #### BCID2 ####[facility] Ssukuzdlbj34[address] [place] [address]Dr. Yilan ChangBCID CONTROLSPASSEDCleveland Clinic South Pointe HospitalComment on above:Performed By: #### BCID2 ####[facility] Vwqcsapncm6351 [place] [address]Dr. Yiemily ChangBCIDBTHDBLOOD CULTURE BOTTLE INFORMATIONCleveland Clinic South Pointe HospitalComment on above:Performed By: #### BCID2 ####[facility] Znntvvbqfi847[address] [place], [place] [address]Dr. Yiemily SureshAbbuxDDHHOS5WMAQEPNUAPXGP RESISTANCE GENESCleveland Clinic South Pointe HospitalComsheridan community hospital on above:Performed By: #### BCID2 ####[facility] Yrxivjyzob[address] [place], [place] [address]Dr. Yiemily SureshWrrvkGGMRPZ5LKI BELOWCleveland Clinic South Pointe HospitalComment on above:Result Comment: Note: Antimicrobial resitance can occur via multiple mechanisms. A Not Detected result for the Film[employer] antomicrobial resistance gene assays does not indicate antimicrobial susceptibility. Subculturing is required for species identification and susceptibility testing of isolates.Performed By: #### BCID2 ####[facility] Pwfajyvinm8845[address] [place], [place] [address]Dr. Yiemily IhvsdVAVLJV9EocejnycYljhzpLlf [facility] HospitalComment on above:Performed By: #### BCID2 ####[facility] Tlgvintzvn87[address] [place], [place] [address]Dr. Yiemily SureshNqzurUTFFJL8BgaqznksOxfbbwCwv [facility] HospitalComment on above:Performed By: #### BCID2 ####[facility] Zprdylyyrn613[address] [place], [place] [address]Dr. Yiemily UmgymUHJFOE9EDIEODrzfesSdvGlenbeigh Hospital Comment on above:Performed By: #### BCID2 ####[facility] Hemmyypxgc083[address] [place], [place] [address]Dr. Yilan ChangBottle Set:Set 2NormalThe St. [facility] HospitalComment on above:Performed By: #### BCID2 ####[facility] Ytkwjjmbsg9420[address] [place], [place] [address]Dr. Yilan ChangBottle: AnaerobicNormalThe [facility] HospitalComment on above:Performed By: #### BCID2 ####[facility] Flqzxzjcjo3810[address] [place], [place] [address]Dr. Yiemily ChangC. neoformans/gattiiNot detectedNormalNOT DETECTEDThe St. [facility] HospitalComment on above:Performed By: #### BCID2 ####[facility] Bnodsdjhsm[address] [place], [place] [address]Dr. Yilan ChangCandida albicansNot detectedNormalNOT DETECTEDThe St. [facility] HospitalComment on above: Performed By: #### BCID2 ####[facility] Wzugvfvizs01[address] [place], [place] [address]Dr. Yilan ChangCandida aurisNot detectedNormalNOT DETECTEDThe St. [facility] HospitalComment on above:Performed By: #### BCID2 ####[facility] Powlmyvuqm057[address] [place], [place] [address]Dr. Tishlan ChangCandida glabrataNot detectedNormalNOT DETECTEDThe [facility] on above:Performed By: #### BCID2 ####[facility] Oqtjjbljly9928[address] [place], [place] [address]Dr. Tishlan ChangCandida KruseiNot detected NormalNOT DETECTEDThe [facility] Hospitalment on above:Performed By: #### BCID2 ####[facility] Aduzdezfao039[address] [place], [place] [address]Dr. Yilan ChangCandida ParapsilosisNot detectedNormalNOT DETECTEDThe St[facility] HospitalComment on above:Performed By: #### BCID2 ####[facility] Zaenzkhbwp8[address] [place], [place] [address]Dr. Yilan ChangCandida TropicalisNot detectedNormalNOT DETECTEDThe [facility] on above: Performed By: #### BCID2 ####[facility] Gqsaoaaedp95[address] [place] [address]Dr. Yilan ChangCTX-M Resistant GeneNot Applicable NormalNOT DETECTEDThe [facility] HospitalComsheridan community hospital on above:Performed By: #### BCID2 ####[facility] Ctqxcuxusy148[address] [place], [place] [address]Dr. Yilan ChangE. Cloacae complexNot detectedNormalNOT DETECTEDThe [facility] Comment on above:Performed By: #### BCID2 ####[facility] Xxeqzmzhds208[address] [place], [place] [address]Dr. Yilan ChangE. faecalisNot detectedNormal NOT DETECTEDThe St. [facility] HospitalComment on above:Performed By: #### BCID2 ####[facility] [facility] Pjhddevuhp[address] [place], [place] [address]Dr. Yilan ChangE. faeciumNot detectedNormalNOT DETECTEDThe St. [facility] on above:Performed By: #### BCID2 ####[facility] Ineulaywcv1917[address] [place], [place] [address]Dr. Yilan ChangEnterobacteriaceaeNot detectedNormal NOT DETECTEDThe St. [facility] HospitalComment on above:Performed By: #### BCID2 ####[facility] Mkfpalqqhl616971 [address] [place], [place] [address]Dr. Yilan ChangEscherichia coliNot detectedNormalNOT DETECTEDThe [facility] Comment on above:Performed By: #### BCID2 ####[facility] Hcxmrtluxw5985[address] [place], [place] [address]Dr. Yilan ChangH. influenzaeNot detected NormalNOT DETECTEDThe [facility]Com[facility] on above:Performed By: #### BCID2 ####[facility] Hmpgmgwngi054871 [address] [place], [place] [address]Dr. Yilan ChangIMP Resistant GeneNot ApplicableNormalNOT DETECTEDThe St. [facility]Com[facility] on above:Performed By: #### BCID2 ####[facility] Wmquriczbr0318[address] [place], [place] [address]Dr. Yilan ChangK. oxytocaNot detectedNormalNOT DETECTEDThe [facility] on above:Performed By: #### BCID2 ####[facility] Vqpvphbrsc929[address] [place], [place] [address]Dr. Devin SureshK. pneumoniaeNot detectedNormalNOT DETECTEDThe St. [facility] HospitalComment on above:Performed By: #### BCID2 ####[facility] Aslvzxwhoz065[address] [place], [place] [address]Dr. Devin SureshKlebsiella aerogenesNot detectedNormalNOT DETECTEDThe [facility] HospitalComment on above: Performed By: #### BCID2 ####[facility] Cwrvoorrwx8822[address] [place], [place] [address]Dr. Devin SureshKPC Resistant GeneNot ApplicableNormal NOT DETECTEDThe [facility] HospitalComment on above:Performed By: #### BCID2 ####[facility] Fpbvzcqwxm263371 [address] [place], [place] [address]Dr. Devin SureshList. monocytogenesNot detectedNormalNOT DETECTEDThe [facility] on above:Performed By: #### BCID2 ####[facility] Eycpxhdkbp345[address] [place], [place] [address]Dr. Devin SureshMcr-1 Resistant GeneNot ApplicableNormalNOT DETECTEDThe [facility] on above:Performed By: #### BCID2 ####[facility] Mesckodskp89[address] [place], [place] [address]Dr. Devin SureshmecA/CNot ApplicableNormalNOT DETECTED The [facility] on above:Performed By: #### BCID2 ####[facility] Rogrfwjlqr724671 [address] [place], [place] [address]Dr. Devin Suresh mecA/C MREJNot ApplicableNormalNOT DETECTEDThe [facility] on above:Performed By: #### BCID2 ####[facility] Hacfiiwytr827[address] [place], [place] [address]Dr. Devin SureshN. meningitidisNot detectedNormalNOT DETECTEDThe [facility]Com[facility] on above:Performed By: #### BCID2 ####[facility] Jttahycoag354671 [address] [place], [place] [address]Dr. Devin SureshNDM Resistant GeneNot ApplicableNormalNOT DETECTEDThe [facility]Com[facility] on above:Performed By: #### BCID2 ####[facility] Xsembypndn[address] [place] [address]Dr. Yilan GcqjoIhw-18-nwicQqb ApplicableNormalNOT DETECTEDThe St. [facility] HospitalComment on above:Performed By: #### BCID2 ####[facility] Dvcoexrhej526[address] [place], [place] [address]Dr. Yilan ChangProteusNot detectedNormalNOT DETECTEDThe [facility] Comment on above:Performed By: #### BCID2 ####[facility] Ivfanfqnco80[address] [place] [address]Dr. Yilan ChangPseud. aeruginosaNot detected NormalNOT DETECTEDThe St. [facility] HospitalComment on above:Performed By: #### BCID2 ####[facility] Ehzfsspqxs760671 [address] [place], [place] [address]Dr. Yilan ChangS. maltophiliaNot detectedNormalNOT DETECTEDThe [facility] Comment on above:Performed By: #### BCID2 ####[facility] Xlemesctpz234071 [address] [place], [place] [address]Dr. Yilan ChangSalmonellaNot detectedNormal NOT DETECTEDThe [facility]. [facility] HospitalComment on above:Performed By: #### BCID2 ####[facility] Ezzlypfhfy423671 [address] [place], [place] [address]Dr. Yilan ChangSeratia marcescensNot detectedNormalNOT DETECTEDThe [facility] Comment on above:Performed By: #### BCID2 ####[facility] Egeseqrgfw657971 [address] [place], [place] [address]Dr. Yilan ChangSite:RACNormalThe St. [facility] HospitalComment on above:Performed By: #### BCID2 ####[facility] Tpdfigkbtx9911[address] [place], [place] [address]Dr. Yilan ChangStaph. aureus Not detectedNormalNOT DETECTEDThe St. [facility] HospitalComment on above:Performed By: #### BCID2 ####[facility] Qqucraaztc356071 [address] [place], [place] [address]Dr. Yilan ChangStaph. epidermidisNot detectedNormalNOT DETECTEDThe St. [facility] HospitalComment on above:Performed By: #### BCID2 ####[facility] Vzzeqjixmo70[address] [place] [address]Dr. Devin SureshStaph. lugdunensisNot detectedNormalNOT DETECTEDThe St. [facility] HospitalComment on above: Performed By: #### BCID2 ####[facility] Jbdehcbgli2636[address] [place], [place] [address]Dr. Devin ChangStaphylococcusNot detectedNormalNOT DETECTEDThe St. [facility] HospitalComment on above:Performed By: #### BCID2 ####[facility] Luykfzqjkj031571 [address] [place], [place] [address]Dr. Devin SureshStrep. agalactiaeNot detectedNormalNOT DETECTEDThe [facility] Comment on above:Performed By: #### BCID2 ####[facility] Abcewgtjfx536371 [address] [place], [place] [address]Dr. Devin SureshStrep. pneumoniaeNot detected NormalNOT DETECTEDThe [facility]Com[facility] on above:Performed By: #### BCID2 ####[facility] Ppwrptdtcu939471 [address] [place], [place] [address]Dr. Devin SureshStrep. pyogenesNot detectedNormalNOT DETECTEDThe [facility] Comment on above:Performed By: #### BCID2 ####[facility] Attxdrrbau946271 [address] [place], [place] [address]Dr. Devin SureshStreptococcusNot detected NormalNOT DETECTEDThe St. [facility] HospitalComment on above:Performed By: #### BCID2 ####[facility] Vawulvnzif848971 [address] [place], [place] [address]Dr. Devin SureshvanA/B Resist. GeneNot ApplicableNormalNOT DETECTEDThe [facility]Com[facility] on above:Performed By: #### BCID2 ####[facility] Stxldxsdcl611[address] [place], [place] [address]Dr. Devin SureshVIM Resistant GeneNot ApplicableNormalNOT DETECTEDThe [facility]Com[facility] on above: Performed By: #### BCID2 ####[facility] Ksuinxyksq826171 [address] [place], [place] [address]Dr. Devin SureshCARROLL [facility] AUTO DIFFon [id number] #0.0 103/ulNormal0.0-0.1The St. [facility] HospitalComment on above:Performed By: #### CBC ####[facility] Veguvbjwfr353171 [address] [place], [place] [address]Dr. Tishlan ChangBasophils/100 WBC (Bld)0.5 %Normal0.2-2.0The [facility] HospitalComment on above:Performed By: #### CBC ####[facility] Zzfumtyokx767971 [address] [place], [place] [address]Dr.Yilan ChangEO #0.1 103/ulNormal0.0-0.7The [facility] HospitalComment on above:Performed By: #### CBC ####[facility] Fwrjdvagrt524[address] [place], [place] [address]Dr.Devin ChangEosinophils/100 WBC (Bld)2.3 %Normal0.9-7.0The [facility] HospitalComment on above:Performed By: #### CBC ####[facility] Tmyimyirqr696471 [address] [place], [place] [address]Dr.Devin ChangErythrocyte distribution width (RBC) [Ratio]13.4 %Normal 11.0-15.0The [facility] HospitalComment on above:Performed By: #### CBC ####[facility] Cnkfgujcyg776571 [address] [place], [place] [address]Dr. Devin ChangHematocrit (Bld) [Volume fraction]36.9 %Jdsvry34.0-48.0The [facility] HospitalComment on above:Performed By: #### CBC ####[facility] Dpkifjcyse519971 [address] [place], [place] [address]Dr.Tishlan ChangHemoglobin (Bld) [Mass/Vol]12.9 g/kNIshyqg41.0-16.0The [facility] HospitalComment on above: Performed By: #### CBC ####[facility] Bywziwcyvo773971 [address] [place], [place] [address]Dr.Tishlan ChangIG #0.02 10e3/ulNormal0.00-0.03The [facility] HospitalComment on above:Performed By: #### CBC ####[facility] Epuvxktoze4309[address] [place], [place] [address]Dr.Devin SureshIG %0.4 %Normal 0.0-0.5The [facility] HospitalComment on above:Performed By: #### CBC ####[facility] Biqtrpfnzj326071 [address] [place], [place] [address]Dr.Devin SureshLYMPH #0.9 103/ulCritically low1.2-3.8The [facility] HospitalComment on above:Performed By: #### CBC ####[facility] Xoggwwjdzl917071 [address] [place], [place] [address]Dr.Devin SureshLymphocytes/100 WBC (Bld)16.4 %Critically low20.5-60.[address] [facility] HospitalComment on above:Performed By: #### CBC ####[facility] Huxtmyqtac7825[address] [place], [place] [address]Dr.Devin SureshMANUAL DIFF REQNONormalThe St. [facility] HospitalComment on above:Performed By: #### CBC ####[facility] Hhjejhflec6179[address] [place], [place] [address]Dr. Devin SureshH (RBC) [Entitic mass]30.9 avZlkgyj58.7-34.0[facility] Comment on above:Performed By: #### CBC ####[facility] Cmlrnngcok705171 [address] [place], [place] [address]Dr.Devin SureshMCHC (RBC) [Mass/Vol]35.0 g/dL Wwdxyd93.9-35.2[facility] HospitalComment on above:Performed By: #### CBC ####[facility] Dlohicomco692871 [address] [place], [place] [address]Dr. Devin SureshMCV (RBC) [Entitic vol]88.3 fPEwlduc86.0-99.0The [facility] Comment on above:Performed By: #### CBC ####[facility] Opbhukdxil166271 [address] [place], [place] [address]Dr.Devin SureshMONO #0.4 103/ulNormal0.3-0.[address] [facility] HospitalComment on above:Performed By: #### CBC ####[facility] Rmdrktdsxg0820 [place] [address]Dr.Devin Suresh Monocytes/100 WBC (Bld)6.9 %Normal1.7-12.0The [facility] HospitalComment on above: Performed By: #### CBC ####[facility] Jfgxnkuxlw739871 [address] [place], [place] [address]Dr.Devin SureshNEUT #4.2 103/ulNormal1.4-6.5The [facility] HospitalComment on above:Performed By: #### CBC ####[facility] Qmodisualp518471 [address] [place], [place] [address]Dr.Devin SureshNeutrophils/100 WBC (Bld)73.5 %Yqkfpg59.0-75.0The [facility] HospitalComment on above:Performed By: #### CBC ####[facility] Ukzuztndca711[address] [place], [place] [address]Dr.Devin SureshPlatelet mean volume (Bld) [Entitic vol]8.6 fLCritically low 9.5-13.5The [facility] HospitalComment on above:Performed By: #### CBC ####[facility] Ogiwkxevsl1009[address] [place], [place] [address]Dr. Devin PgggpWKA992 103/ijTzebmf229-838Joa St. [facility] HospitalComment on above: Performed By: #### CBC ####[facility] Suqyhndqix2030[address] [place], [place] [address]Dr.Devin SureshRBC4.18 106/ulCritically low4.20-5.40The [facility] HospitalComment on above:Performed By: #### CBC ####[facility] Okqpdrdtns818[address] [place], [place] [address]Dr.Devin ChangWBC5.7 103/ul Normal4.0-11.0The [facility] HospitalComment on above:Performed By: #### CBC ####[facility] Gaqaeitshi626[address] [place], [place] [address]Dr. Devin SureshCULTURE BLOODon 53-93-8671Rnbfhexcpmn examination of blood, culture Culture Observations: NO GROWTH AT [address] [facility] HospitalComment on above:Performed By: #### BLDCX1 ####[facility] Wakmehztax[address] [place] [address]Dr. Devin SureshCovid-19 PCR (CVDTB)on 17-23-3990OUOE-CoV-2 (COVID-19) RNA EBONIE+probe Ql (Unsp spec)Not detectedNormalNOT DETECTEDThe [facility] Comment on above:Result Comment: When diagnostic [...] for this test is supported by the Database Security Expert of Health and Human Service's declaration that [...] no longer be used).Performed By: #### CVDTBH ####[facility] Gwxeeanezn[address] [place] [address]Dr. Devin ChangLACTATE/LACTIC ACIDon 20-37-1003Ejcsygx [Moles/Vol]1.2 mmol/LNormal0.4-1.9The [facility] Comment on above:Performed By: #### LACT ####[facility] Bodnbcxmzs14[address] [place] [address]Dr. Devin SureshPROF 14(COMP METB)on 11-01-2841Zkuaxsh [Mass/Vol]4.1 g/dLNormal3.4-5.0The [facility] HospitalComment on above:Performed By: #### CMP ####[facility] Zjgryolzlq4241 [place] [address]Dr.Devin SureshAlbumin/Globulin [Mass ratio]1.2 {ratio} NormalThe St. Vincent HospitalComment on above:Performed By: #### CMP ####[facility] Jcvzuclcrt5023 [place] [address]Dr.Yilan ChangALP [Catalytic activity/Vol]114 U/WMzlppn78-432Sil St[facility] HospitalComment on above:Performed By: #### CMP ####[facility] Zkbmvqiplt0458 [place] [address]Dr.Yilan ChangALT [Catalytic activity/Vol]20 U/LNormal 14-59The [facility] HospitalComment on above:Performed By: #### CMP ####[facility] Tgvjdptuts7832 [place] [address]Dr.Yilan ChangAnion gap [Moles/Vol]13.5 mmol/LNormalThe St. [facility] HospitalComment on above:Performed By: #### CMP ####[facility] Eidivvnyzk213[address] [place], [place] [address]Dr.Yilan ChangAST [Catalytic activity/Vol]12 U/LCritically smy00-15Vjp St[facility] HospitalComment on above:Performed By: #### CMP ####[facility] Gjpurdmdgc812[address] [place], [place] [address]Dr.Yilan ChangBilirubin [Mass/Vol]0.4 mg/dLNormal0.2-1.0The [facility] on above:Performed By: #### CMP ####[facility] Ofbgenufkq803071 [address] [place], [place] [address]Dr.Yilan ChangCalcium [Mass/Vol]9.3 mg/dLNormal8.5-10.1The [facility] HospitalComment on above:Performed By: #### CMP ####[facility] Mxfwqedsfq[address] [place], [place] [address]Dr.Yilan ChangChloride [Moles/Vol]105 mmol/TGlqpps60-468Elb St[facility] HospitalComment on above:Performed By: #### CMP ####[facility] Zjthiiyyet313971 [address] [place], [place] [address]Dr.Yilan ChangCO2 [Moles/Vol]27.3 mmol/QBokfkv79.0-32.0The [facility] HospitalComment on above:Performed By: #### CMP ####[facility] Cdyhlfskda4080 [place] [address]Dr.Yilan ChangCreatinine [Mass/Vol]0.90 mg/dLNormal0.55-1.02The [facility] HospitalComment on above: Performed By: #### CMP ####[facility] Rslmauztzx3127 [place] [address]Dr.Yilan ChangEGFR-AF NIUEAN>60Normal>=60The [facility] HospitalComment on above:Performed By: #### CMP ####[facility] Gptueixuac812[address] [place], [place] [address]Dr.Yilan ChangEGFR-NON AF NIUEAN>60Normal>=60The [facility] HospitalComment on above:Performed By: #### CMP ####[facility] Kzdjbiqhrx059[address] [place], [place] [address]Dr. Yilan ChangGlobulin (S) [Mass/Vol]3.5 g/dLNormalThe St. [facility] HospitalComment on above:Performed By: #### CMP ####[facility] Emnlsaplbt455471 [address] [place], [place] [address]Dr.Yilan ChangGlucose [Mass/Vol]114 mg/dLCritically kpap17-247Okh St[facility] HospitalComment on above:Performed By: #### CMP ####[facility] Emkcrfxmsg330471 [address] [place], [place] [address]Dr. Yilan ChangPotassium [Moles/Vol]3.8 mmol/LNormal3.5-5.1The [facility] Comment on above:Performed By: #### CMP ####[facility] Cyelgkoioo889271 [address] [place], [place] [address]Dr.Yilan ChangProtein [Mass/Vol]7.6 g/dL Normal6.4-8.2The [facility] HospitalComment on above:Performed By: #### CMP ####[facility] Rakfkzeazx180971 [address] [place], [place] [address]Dr. Yilan ChangSodium [Moles/Vol]142 mmol/AMqxxva407-189Omy St. [facility] HospitalComment on above:Performed By: #### CMP ####[facility] Iikfxvrstr121271 [address] [place], [place] [address]Dr.Yilan ChangUrea nitrogen [Mass/Vol]12.0 mg/dLNormal 7.0-18.0The [facility] HospitalComment on above:Performed By: #### CMP ####[facility] Sxauyegkrm8765[address] [place], [place] [address]Dr. Yilan ChangUrea nitrogen/Creatinine [Mass ratio]13.3 mg/mgNormalThe St. [facility] HospitalComment on above:Performed By: #### CMP ####[facility] Mnhtmizvfs167271 [address] [place], [place] [address]Dr.Yilan ChangXR CHEST 1 Von 42-58-4298LG CHEST 1 VNormalLima Memorial HospitalXR FOOT LT MIN 3 VIEWSon 37-30-1563QG FOOT LT MIN 3 VIEWSNormParkview HealthACETAMINOPHENon 63-35-4852Jogmwbjkrtvsa [Mass/Vol]ug/mLCritically low10.0-30.0The [facility] HospitalComment on above:Performed By: #### ACET, SALYC ####[facility] Uwovxmqtka87[address] [place], [place] [address]Dr. Tishlan ChangCBC AUTO DIFF on 60-72-9164BZFI #0.1 103/ulNormal0.0-0.1The [facility]Com[facility] on above: Performed By: #### CBC ####[facility] Rkfcbizmue213971 [address] [place], [place] [address]Dr.Tishlan ChangBasophils/100 WBC (Bld)0.8 %Normal 0.2-2.0The [facility] HospitalComment on above:Performed By: #### CBC ####[facility] Moypoyjfrg35[address] [place], [place] [address]Dr.Yilan ChangEO # 0.2 103/ulNormal0.0-0.7The [facility] HospitalComs[facility] on above:Performed By: #### CBC ####[facility] Lsgcwgvdgf818[address] [place], [place] [address]Dr. Tishlan ChangEosinophils/100 WBC (Bld)1.6 %Normal0.9-7.0The [facility] Comment on above:Performed By: #### CBC ####[facility] Rwzvdmvdur366271 [address] [place], [place] [address]Dr.Tishemily ChangErythrocyte distribution width (RBC) [Ratio]12.9 %Aapaee69.0-15.0The [facility] HospitalComment on above: Performed By: #### CBC ####[facility] Nhxqugeazc580971 [address] [place], [place] [address]Dr.Tishemily ChangHematocrit (Bld) [Volume fraction]35.5 % Critically low36.0-48.0The [facility] HospitalComment on above:Performed By: #### CBC ####[facility] Kawunienaw137[address] [place], [place] [address]Dr. Devin ChangHemoglobin (Bld) [Mass/Vol]12.4 g/yEBssypj22.0-16.0The [facility] HospitalComment on above:Performed By: #### CBC ####[facility] Snubujlecn1635[address] [place], [place] [address]Dr.Yiemily ChangIG #0.03 10e3/ulNormal0.00-0.03The [facility] HospitalComment on above:Performed By: #### CBC ####[facility] Otxvxzsevb6680[address] [place], [place] [address]Dr. Devin ChangIG %0.3 %Normal0.0-0.5The [facility] HospitalComment on above:Performed By: #### CBC ####[facility] Qvlfxmgfea083471 [address] [place], [place] [address]Dr.Tishlan ChangLYMPH #1.8 103/ulNormal1.2-3.8The [facility] Comment on above:Performed By: #### CBC ####[facility] Gavglkusmp453771 [address] [place], [place] [address]Dr.Tishlan ChangLymphocytes/100 WBC (Bld)19.5 %Critically low20.5-60.0The [facility] HospitalComment on above:Performed By: #### CBC ####[facility] Rskyxwcboj3389 [place] [address]Dr.Devin SureshMANUAL DIFF REQNONormalThe St. [facility] HospitalComment on above: Performed By: #### CBC ####[facility] Zfqvrfqwhw7612 [place] [address]Dr.Devin SureshH (RBC) [Entitic mass]31.2 pgNormal 26.7-34.0The [facility] HospitalComment on above:Performed By: #### CBC ####[facility] Zavplwzdwb0216 [place] [address]Dr. Devin SureshHC (RBC) [Mass/Vol]34.9 g/xUHxylto76.9-35.2The [facility] Comment on above:Performed By: #### CBC ####[facility] Yohieydolv887171 [address] [place], [place] [address]Dr.Devin SureshV (RBC) [Entitic vol]89.2 fL Svwkdk94.0-99.0The [facility] HospitalComment on above:Performed By: #### CBC ####[facility] Efbubkruxn852571 [address] [place], [place] [address]Dr. Devin SureshMONO #0.5 103/ulNormal0.3-0.8The [facility] HospitalComment on above: Performed By: #### CBC ####[facility] Fzzedpgcnh078571 [address] [place], [place] [address]Dr.Devin ChangMonocytes/100 WBC (Bld)5.0 %Normal 1.7-12.0The [facility] HospitalComment on above:Performed By: #### CBC ####[facility] Votiuxgeeq1531 [place] [address]Dr. Devin SureshNEUT #6.8 103/ulCritically high1.4-6.5The [facility] HospitalComment on above:Performed By: #### CBC ####[facility] Lktirqgghc825471 [address] [place], [place] [address]Dr.Devin SureshNeutrophils/100 WBC (Bld)72.8 %Normal 43.0-75.0The [facility] HospitalComment on above:Performed By: #### CBC ####[facility] Geneyofktt7057 [place] [address]Dr. Devin KerwinPlatelet mean volume (Bld) [Entitic vol]8.6 fLCritically low9.5-13.5 The [facility] HospitalComment on above:Performed By: #### CBC ####[facility] Xwuqjlmava607[address] [place], [place] [address]Dr.Devin ExyeoSXY351 103/yqZzmybj808-722Gub St[facility] HospitalComment on above:Performed By: #### CBC ####[facility] Kryokmpfli6460[address] [place], [place] [address]Dr. Devin ChangRBC3.98 106/ulCritically low4.20-5.40The [facility] HospitalComment on above:Performed By: #### CBC ####[facility] Uhdvkdqjon115671 [address] [place], [place] [address]Dr.Devin ChangWBC9.3 103/ulNormal4.0-11.0The [facility] HospitalComment on above:Performed By: #### CBC ####[facility] Mjfplxbatx438[address] [place], [place] [address]Dr.Devin SureshDRUG SCREEN RAPID (URINE)on 13-89-5127YKEByarqoqiQpkkejCYSSGSKAOqj [facility] HospitalComsher[facility] on above:Performed By: #### DRUGRPD ####[facility] Mexopvdtsk3028[address] [place], [place] [address]Dr. Devin ChangBARNegativeNormalNEGATIVELima Memorial HospitalComment on above:Performed By: #### DRUGRPD ####[facility] Yfaqeugyet958[address] [place], [place] [address]Dr. Devin ChangBUP NegativeNormalNEGATIVELima Memorial HospitalComment on above:Performed By: #### DRUGRPD ####[facility] Fqzssohmsd475[address] [place], [place] [address]Dr. Devin ChangBZONegativeNormalNEGATIVELima Memorial HospitalComment on above:Performed By: #### DRUGRPD ####[facility] Csupvuehch427[address] [place], [place] [address]Dr. Devin SureshCOCNegativeNormalNEGATIVETuscarawas Hospital HospitalComment on above:Performed By: #### DRUGRPD ####[facility] Szzbpacrru0567[address] [place], [place] [address]Dr. Devin SureshCUT-OFFSSEE BELOWCleveland Clinic South Pointe HospitalComment on above:Result Comment: AMP (Amphetamine): 500ng/mL, BAR (Barbituates): 200 ng/mL, BZO (Benzodiazepines): 15 0 ng/mL, BUP (Buprenorphine): 10 ng/mL, KATHY (Cocaine): 150 ng/mL, mAMP (Methamphetamine): 500 ng/mL, MTD (Methadone): 200 ng/mL, OPI (Opiates): 100 ng/mL, OXY (Oxycodone): 100 ng/mL, PCP (Phencyclidine): 25 ng/mL, PPX (Propoxyphene): 300 ng/mL, THC (Cannabinoids): 50 ng/mL, TCA (Trycyclic Antidepressants): 300 ng/mLPerformed By: #### DRUGRPD ####[facility] Qmowbjbcya365[address] [place], [place] [address]Dr. Devin SureshDRUG CUT HEADERDRUG CLASS TEST SYSTEM CUT-OFF CONCENTRATIONS ARE FOLLOWS:NormalThe St. [facility] HospitalComment on above:Performed By: #### DRUGRPD ####[facility] Honduczfif1630[address] [place], [place] [address]Dr. Devin SureshmAMP NegativeNormalNEGATIVETuscarawas Hospital HospitalComment on above:Performed By: #### DRUGRPD ####[facility] Juprrpqfxx286[address] [place], [place] [address]Dr. Devin SureshMTDNegativeNormalNEGATIVETuscarawas Hospital HospitalComment on above:Performed By: #### DRUGRPD ####[facility] Zhpaqtxdha613[address] [place], [place] [address]Dr. Devin SureshOPINegativeNormalNEGATIVETuscarawas Hospital HospitalComment on above:Performed By: #### DRUGRPD ####[facility] Ecguevqjbb200[address] [place], [place] [address]Dr. Yilan ChangOXYNegative NormalNEGATIVELima Memorial HospitalComment on above:Performed By: #### DRUGRPD ####[facility] Kybytigzfw517[address] [place], [place] [address]Dr. Yilan ChangPCPNegativeNormalNEGATIVETuscarawas Hospital HospitalComment on above: Performed By: #### DRUGRPD ####[facility] Pscbsjltqp4767[address] [place], [place] [address]Dr. Yilan ChangPPXNegativeNormalNEGATIVELima Memorial HospitalComment on above:Performed By: #### DRUGRPD ####[facility] Obytfrlijf357[address] [place], [place] [address]Dr. Yilan ChangTCAPositive AbnormalNEGATIVELima Memorial HospitalComment on above:Performed By: #### DRUGRPD ####[facility] Vmltfhdfrj8039[address] [place], [place] [address]Dr. Yilan ChangTHCNegativeNormalNEGATIVELima Memorial HospitalComment on above: Performed By: #### DRUGRPD ####[facility] Xsmrxlewqq6330[address] [place], [place] [address]Dr. Yilan ChangER URINE PROFILEon 95-56-2522Znzapvbkh Ql (U)NegativeNormalNEGATIVELima Memorial HospitalComsheridan community hospital on above:Performed By: #### ERUR ####[facility] Xvsqydjlju159371 [address] [place], [place] [address]Dr. Yilan ChangClarity (U)CLEARNormalCLEARLima Memorial HospitalComment on above:Performed By: #### ERUR ####[facility] Lrzzwurpti819[address] [place], [place] [address]Dr. Yilan ChangColor (U)LT. YELLOWNormalYELLOWLima Memorial HospitalComment on above:Performed By: #### ERUR ####[facility] Qahjyzsppo170[address] [place], [place] [address]Dr. Yilan ChangERUAHDA micrscopic examination will be performed if indicated.NormalLima Memorial HospitalComment on above:Performed By: #### ERUR ####[facility] Jgxzpiifks672471 [address] [place], [place] [address]Dr. Devin SureshGlucose Ql (U) 500 mg/dlAbnormalNEGATIVETuscarawas Hospital HospitalComment on above:Performed By: #### ERUR ####[facility] Unnzfgaztn047771 [address] [place], [place] [address]Dr. Tishlan KerwinHemoglobin Ql (U)TRACE-INTACTAbnormalNEGATIVETuscarawas Hospital HospitalComment on above:Performed By: #### ERUR ####[facility] Lwczzxzdiy161471 [address] [place], [place] [address]Dr. Tishlan ChangKetones Ql (U) NegativeNormalNEGATIVETuscarawas Hospital HospitalComment on above:Performed By: #### ERUR ####[facility] Qdqyaazkuc109571 [address] [place], [place] [address]Dr. Devin ChangLEUKOCYTESNegativeNormalNEGATIVETuscarawas Hospital HospitalComment on above:Performed By: #### ERUR ####[facility] Mrfjmtshmv118671 [address] [place], [place] [address]Dr. Devin ChangNitrite Ql (U)NegativeNormalNEGATIVETuscarawas Hospital HospitalComment on above:Performed By: #### ERUR ####[facility] Wigcplnxbu478771 [address] [place], [place] [address]Dr. Devin ChangpH (U)6.0 [pH] Normal5-9Lima Memorial HospitalComment on above:Performed By: #### ERUR ####[facility] Tgllackyjg134671 [address] [place], [place] [address]Dr. Tishlan ChangSPEC GRAVITY1.513Jfykqb3.005-<=1.025The [facility]ho[facility] HospitalComment on above:Performed By: #### ERUR ####[facility] Hmwxtwebpo504971 [address] [place], [place] [address]Dr. Yilan ChangUA PROTEINTRACENormalNEGATIVE/ TRACEThe [facility]ho[facility] HospitalComment on above:Performed By: #### ERUR ####[facility] Tiicdjxxbm961371 [address] [place], [place] [address]Dr. Yilan ChangUR MICRO IND NOT INDICATEDNormalThe [facility]ho[facility] HospitalComment on above:Performed By: #### ERUR ####[facility] Dqgdacjyrs754971 [address] [place], [place] [address]Dr. Yilan ChangUrobilinogen Qn (U)0.2 {Sheyla'U}/dLNormal0.2 - 1.0The [facility] HospitalComment on above:Performed By: #### ERUR ####[facility] Ltpazvkjgk896771 [address] [place], [place] [address]Dr. Yilan ChangETHANOL (BLD ALC)on 25-90-9111BZI NOTENOTE: 80 mg/dl is the legal limit for a blood alcohol levelNoRegional Medical CenterComment on above:Performed By: #### ETH ####[facility] Gqkfnmvpqs0350[address] [place], [place] [address]Dr. Yilan ChangEthanol [Mass/Vol]mg/dLNoRegional Medical CenterComment on above: Performed By: #### ETH ####[facility] Pizfchusta835171 [address] [place], [place] [address]Dr.Yilan ChangPROF CHEM 8 (BAS METB)on 73-31-0849Mtnbj gap [Moles/Vol]12.4 mmol/LNormalThe St. [facility] HospitalComment on above:Performed By: #### BMP ####[facility] Gjljmsaozy665171 [address] [place], [place] [address]Dr.Yilan ChangCalcium [Mass/Vol]8.6 mg/dLNormal8.5-10.1The [facility] HospitalComment on above:Performed By: #### BMP ####[facility] Pgnlpommby455571 [address] [place], [place] [address]Dr.Yilan ChangChloride [Moles/Vol]103 mmol/CVfejac36-747Fqq [facility] HospitalComment on above:Performed By: #### BMP ####[facility] Daiupfcnsh717[address] [place], [place] [address]Dr.Yilan ChangCO2 [Moles/Vol]27.5 mmol/IHaxmrr42.0-32.0The [facility] HospitalComment on above:Performed By: #### BMP ####[facility] Itxxpshsis524471 [address] [place], [place] [address]Dr.Yilan ChangCreatinine [Mass/Vol]1.10 mg/dLCritically high0.55-1.02The [facility] HospitalComment on above:Performed By: #### BMP ####[facility] Izgefxvopb[address] [place] [address]Dr.Yilan ChangEGFR-AF NIUEAN>60Normal>=60The [facility] HospitalComment on above:Performed By: #### BMP ####[facility] Dwzmxdgurd902771 [address] [place], [place] [address]Dr.Yilan ChangEGFR-NON AF RQNDIOBX84 mL/min/1.57m7Gqhhuoqqmx low>=60The [facility] HospitalComment on above: Performed By: #### BMP ####[facility] Avqpvxqhot046671 [address] [place], [place] [address]Dr.Yilan ChangGlucose [Mass/Vol]253 mg/dLCritically umxl99-833Jmt St. [facility] HospitalComment on above:Performed By: #### BMP ####[facility] Ybzzbvllrd551071 [address] [place], [place] [address]Dr. Tishlan ChangPotassium [Moles/Vol]3.9 mmol/LNormal3.5-5.1The [facility] Comment on above:Performed By: #### BMP ####[facility] Feafepyxxp419271 [address] [place], [place] [address]Dr.Yilan ChangSodium [Moles/Vol]139 mmol/L Qssaju113-778Htu St[facility] HospitalComment on above:Performed By: #### BMP ####[facility] Owntvgddre098371 [address] [place], [place] [address]Dr. Yilan ChangUrea nitrogen [Mass/Vol]18.0 mg/dLNormal7.0-18.0The [facility] Comment on above:Performed By: #### BMP ####[facility] Elmcuwztyc906371 [address] [place], [place] [address]Dr.Yilan ChangUrea nitrogen/Creatinine [Mass ratio]16.4 mg/mgNormalThe St. [facility] HospitalComment on above:Performed By: #### BMP ####[facility] Lzehijmkrm0022[address] [place], [place] [address]Dr. Yilan ChangSALICYLATEon 77-25-4760UBOCURDXJJ<2.8Normal<=19.9The [facility]. [facility] HospitalComment on above:Performed By: #### RHEA BUI ####[facility] Mdimxohcdw09[address] [place] [address]Dr. Devin ChangCBC AUTO DIFF on 37-76-7669OVTX #0.1 103/ulNormal0.0-0.1The [facility] HospitalComment on above: Performed By: #### CBC ####[facility] Pimkslamgd497371 [address] [place], [place] [address]Dr.Devin ChangBasophils/100 WBC (Bld)0.8 %Normal 0.2-2.0The [facility]. [facility] HospitalComment on above:Performed By: #### CBC ####[facility] Kqxlavdgpm840471 [address] [place], [place] [address]Dr.Yilan ChangEO # 0.2 103/ulNormal0.0-0.7The [facility] HospitalComment on above:Performed By: #### CBC ####[facility] Zbcqfsnpxd207071 [address] [place], [place] [address]Dr. Devin ChangEosinophils/100 WBC (Bld)2.1 %Normal0.9-7.0The [facility] Comment on above:Performed By: #### CBC ####[facility] Vemoopiler980271 [address] [place], [place] [address]Dr.Devin ChangErythrocyte distribution width (RBC) [Ratio]12.6 %Qxcliq79.0-15.0The [facility] HospitalComment on above: Performed By: #### CBC ####[facility] Ysafhjpzux280971 [address] [place], [place] [address]Dr.Devin ChangHematocrit (Bld) [Volume fraction]34.9 % Critically low36.0-48.0The [facility] HospitalComment on above:Performed By: #### CBC ####[facility] Xxlhyondbh340271 [address] [place], [place] [address]Dr. Devin ChangHemoglobin (Bld) [Mass/Vol]12.3 g/nBWkpreo14.0-16.0The [facility] HospitalComment on above:Performed By: #### CBC ####[facility] Agclgawyjr035471 [address] [place], [place] [address]Dr.Devin SureshIG #0.03 10e3/ulNormal0.00-0.03The [facility] HospitalComment on above:Performed By: #### CBC ####[facility] Jxleodgqgj003771 [address] [place], [place] [address]Dr. Devin SureshIG %0.4 %Normal0.0-0.5The [facility] HospitalComment on above:Performed By: #### CBC ####[facility] Rrswqfnznn908171 [address] [place], [place] [address]Dr.Devin SureshLYMPH #1.7 103/ulNormal1.2-3.8The [facility] Comment on above:Performed By: #### CBC ####[facility] Bexemvmsxc671571 [address] [place], [place] [address]Dr.Devin Hernandezmphocytes/100 WBC (Bld)20.0 %Critically low20.5-60.0The [facility] HospitalComment on above:Performed By: #### CBC ####[facility] Lscgzflgjx373571 [address] [place], [place] [address]Dr.Devin SureshMANUAL DIFF REQNONormalThe St. [facility] HospitalComment on above: Performed By: #### CBC ####[facility] Fwciduepht490[address] [place], [place] [address]Dr.Devin SureshUNITY [facility] (RBC) [Entitic mass]29.6 pgNormal 26.7-34.0The [facility] HospitalComment on above:Performed By: #### CBC ####[facility] Twluekcycx005471 [address] [place], [place] [address]Dr. Devin SureshHC (RBC) [Mass/Vol]35.2 g/tVHilofi92.9-35.2The [facility] Comment on above:Performed By: #### CBC ####[facility] Dmotvireuf965171 [address] [place], [place] [address]Dr.Devin SureshV (RBC) [Entitic vol]83.9 fL Dyopof10.0-99.0The [facility] HospitalComment on above:Performed By: #### CBC ####[facility] Yzxzgvuqfy166571 [address] [place], [place] [address]Dr. Devin SureshMONO #0.4 103/ulNormal0.3-0.8The [facility] HospitalComment on above: Performed By: #### CBC ####[facility] Yarrqwonos742171 [address] [place], [place] [address]Dr.Devin ChangMonocytes/100 WBC (Bld)5.2 %Normal 1.7-12.0The [facility] HospitalComment on above:Performed By: #### CBC ####[facility] Kidpnyksph560571 [address] [place], [place] [address]Dr. Devin SureshNEUT #6.0 103/ulNormal1.4-6.5The [facility] HospitalComment on above: Performed By: #### CBC ####[facility] Tdzpjkxsfw556271 [address] [place], [place] [address]Dr.Devin ChangNeutrophils/100 WBC (Bld)71.5 %Normal 43.0-75.0The [facility] HospitalComment on above:Performed By: #### CBC ####[facility] Awenyykgui185771 [address] [place], [place] [address]Dr. Devin SureshPlatelet mean volume (Bld) [Entitic vol]8.4 fLCritically low9.5-13.[address] [facility] HospitalComment on above:Performed By: #### CBC ####[facility] Rmgxuzjtzy808[address] [place], [place] [address]Dr.Devin QqkhoOEW042 103/rrVzseyp038-328Tcl St[facility] HospitalComment on above:Performed By: #### CBC ####[facility] Odjoycpoid009871 [address] [place], [place] [address]Dr. Tishemily SureshRBC4.16 106/ulCritically low4.20-5.40The [facility] HospitalComment on above:Performed By: #### CBC ####[facility] Bnzayolvvn330571 [address] [place], [place] [address]Dr.Devin ChangWBC8.4 103/ulNormal4.0-11.0The [facility] HospitalComment on above:Performed By: #### CBC ####[facility] Knlodsclsn101571 [address] [place], [place] [address]Dr.Devin ChangPROF 14(COMP METB)on 81-71-0632Puekoty [Mass/Vol]3.4 g/dLNormal3.4-5.0The [facility] Comment on above:Performed By: #### CMP ####[facility] Awztbngqma233971 [address] [place], [place] [address]Dr.Devin ChangAlbumin/Globulin [Mass ratio] 1.0 {ratio}NormalThe St. [facility] HospitalComment on above:Performed By: #### CMP ####[facility] Stplykuplh122171 [address] [place], [place] [address]Dr. Devin ChangALP [Catalytic activity/Vol]108 U/CJaehmc87-431Jep [facility] Comment on above:Performed By: #### CMP ####[facility] Uauxqyelro666571 [address] [place], [place] [address]Dr.Yiemily ChangALT [Catalytic activity/Vol]15 U/GUarsxj11-47Xde St[facility] HospitalComment on above:Performed By: #### CMP ####[facility] Yfskqlpjqw497771 [address] [place], [place] [address]Dr. Devin ChangAnion gap [Moles/Vol]14.6 mmol/LNormalThe St. [facility] HospitalComment on above:Performed By: #### CMP ####[facility] Dynekuzikg703371 [address] [place], [place] [address]Dr.Tishlan ChangAST [Catalytic activity/Vol]11 U/L Critically iue11-96Rxb [facility] HospitalComment on above:Performed By: #### CMP ####[facility] Oyrattagsh115271 [address] [place], [place] [address]Dr. Tishemily ChangBilirubin [Mass/Vol]0.4 mg/dLNormal0.2-1.0The [facility] Comment on above:Performed By: #### CMP ####[facility] Vrdszuueqv8615[address] [place], [place] [address]Dr.Yilan ChangCalcium [Mass/Vol]8.8 mg/dL Normal8.5-10.1The [facility] HospitalComment on above:Performed By: #### CMP ####[facility] Pyeysgojkk664271 [address] [place], [place] [address]Dr. Yilan ChangChloride [Moles/Vol]104 mmol/SQfvetc33-649Rgp [facility] Comment on above:Performed By: #### CMP ####[facility] Qgqriizucq888171 [address] [place], [place] [address]Dr.Yilan ChangCO2 [Moles/Vol]24.2 mmol/L Vbapug32.0-32.0The [facility] HospitalComment on above:Performed By: #### CMP ####[facility] Jcevhyufka364[address] [place], [place] [address]Dr. Yilan ChangCreatinine [Mass/Vol]1.35 mg/dLCritically high0.55-1.02The [facility] HospitalComment on above:Performed By: #### CMP ####[facility] Ijqylvqiti472571 [address] [place], [place] [address]Dr.Yilan ChangEGFR-AF WXUOWDNF95 mL/min/1.62c7Rtpxpvklup low>=60The [facility] HospitalComment on above: Performed By: #### CMP ####[facility] Zvhuzhqlxg106671 [address] [place], [place] [address]Dr.Yilan ChangEGFR-NON AF QHXBWZFW87 mL/min/1.73m2 Critically low>=60The [facility] HospitalComment on above:Performed By: #### CMP ####[facility] Nglpydlhbc175671 [address] [place], [place] [address]Dr. Yilan ChangGlobulin (S) [Mass/Vol]3.5 g/dLNormalThe St. [facility] HospitalComment on above:Performed By: #### CMP ####[facility] Ypfxuhkdfd424[address] [place], [place] [address]Dr.Yilan ChangGlucose [Mass/Vol]265 mg/dLCritically xhrs13-715Dag [facility] HospitalComment on above:Performed By: #### CMP ####[facility] Agounfznus[address] [place] [address]Dr. Yilan ChangPotassium [Moles/Vol]3.8 mmol/LNormal3.5-5.1The [facility] Comment on above:Performed By: #### CMP ####[facility] Xlylnptxpj766571 [address] [place], [place] [address]Dr.Yilan ChangProtein [Mass/Vol]6.9 g/dL Normal6.4-8.2The [facility] HospitalComment on above:Performed By: #### CMP ####[facility] Fixladbico229271 [address] [place], [place] [address]Dr. Yilan ChangSodium [Moles/Vol]139 mmol/SSmbzyh006-373Jre [facility] HospitalComment on above:Performed By: #### CMP ####[facility] Ybonnmbqpc644071 [address] [place], [place] [address]Dr.Yilan ChangUrea nitrogen [Mass/Vol]23.0 mg/dL Critically high7.0-18.0The [facility] HospitalComment on above:Performed By: #### CMP ####[facility] Iqsyfoskrb089971 [address] [place], [place] [address]Dr. Yilan ChangUrea nitrogen/Creatinine [Mass ratio]17.0 mg/mgNormalThe St. [facility] HospitalComment on above:Performed By: #### CMP ####[facility] Oshvnmsczo3225[address] [place], [place] [address]Dr.Devin ChangCBC AUTO DIFFon 18-75-5392XZUU #0.1 103/ulNormal0.0-0.1The [facility] HospitalComment on above: Performed By: #### CBC ####[facility] Lvqkfbkrbs160371 [address] [place], [place] [address]Dr.Yilan ChangBasophils/100 WBC (Bld)0.7 %Normal 0.2-2.0The [facility] HospitalComment on above:Performed By: #### CBC ####[facility] Gihfjgnmuy718271 [address] [place], [place] [address]Dr.Yilan ChangEO # 0.2 103/ulNormal0.0-0.7The [facility] HospitalComment on above:Performed By: #### CBC ####[facility] Gmtmmhmyjg820671 [address] [place], [place] [address]Dr. Yilan ChangEosinophils/100 WBC (Bld)2.2 %Normal0.9-7.0The [facility] Comment on above:Performed By: #### CBC ####[facility] Eumdgvyyre821171 [address] [place], [place] [address]Dr.Yilan ChangErythrocyte distribution width (RBC) [Ratio]12.5 %Fkxssa48.0-15.0The [facility] HospitalComment on above: Performed By: #### CBC ####[facility] Dauoysdfpj853171 [address] [place], [place] [address]Dr.Yilan ChangHematocrit (Bld) [Volume fraction]40.2 % Zzadqy90.0-48.0The [facility] HospitalComment on above:Performed By: #### CBC ####[facility] Aluupnqovd567271 [address] [place], [place] [address]Dr. Tishemily ChangHemoglobin (Bld) [Mass/Vol]13.8 g/mWPkvkkm40.0-16.0The [facility] HospitalComment on above:Performed By: #### CBC ####[facility] Yxyxzedamx804271 [address] [place], [place] [address]Dr.Yilan ChangIG #0.03 10e3/ulNormal0.00-0.03The [facility] HospitalComment on above:Performed By: #### CBC ####[facility] Ozbmlluybz753071 [address] [place], [place] [address]Dr. Yilan ChangIG %0.3 %Normal0.0-0.5The [facility] HospitalComment on above:Performed By: #### CBC ####[facility] Dxbqysurqo998171 [address] [place], [place] [address]Dr.Yilan ChangLYMPH #2.7 103/ulNormal1.2-3.8The [facility] Comment on above:Performed By: #### CBC ####[facility] Swylxnvpai1355[address] [place], [place] [address]Dr.Yilan ChangLymphocytes/100 WBC (Bld)26.4 %Wojdyu44.5-60.0The [facility] HospitalComment on above:Performed By: #### CBC ####[facility] Zlddvfkvik176471 [address] [place], [place] [address]Dr. Devin SureshMANUAL DIFF REQNONormalThe St. [facility] HospitalComment on above: Performed By: #### CBC ####[facility] Tqctsknxqc31977[address] [place], [place] [address]Dr.Devin [facility]hUN[facility] (RBC) [Entitic mass]30.0 pgNormal 26.7-34.0The [facility] HospitalComment on above:Performed By: #### CBC ####[facility] Ehcnbfcyxq941671 [address] [place], [place] [address]Dr. Devin SureshNYU [facility] ([facility]BC) [Mass/Vol]34.3 g/wFJjhfye68.9-35.2The [facility] Comment on above:Performed By: #### CBC ####[facility] Nzxpoawnzf174771 [address] [place], [place] [address]Dr.Devin SureshV (RBC) [Entitic vol]87.4 fL Qotqqh79.0-99.0The [facility] HospitalComment on above:Performed By: #### CBC ####[facility] Odxoiydoiy18217[address] [place], [place] [address]DrMaris Calloway #0.6 103/ulNormal0.3-0.8The [facility] HospitalComment on above: Performed By: #### CBC ####[facility] Ylwwzyrxiv770671 [address] [place], [place] [address]DrGonzalo SureshMonocytes/100 WBC (Bld)5.8 %Normal 1.7-12.0The [facility] HospitalComment on above:Performed By: #### CBC ####[facility] Hdplbvzgbe617071 [address] [place], [place] [address]DrMaris Taylor #6.7 103/ulCritically high1.4-6.5The [facility] HospitalComment on above:Performed By: #### CBC ####[facility] Jkyspjgmgh744[address] [place], [place] [address]Dr.Yilan ChangNeutrophils/100 WBC (Bld)64.6 %Normal 43.0-75.0The [facility] HospitalComment on above:Performed By: #### CBC ####[facility] Tgziifpfen57[address] [place] [address]Dr. Devin SureshPlatelet mean volume (Bld) [Entitic vol]8.7 fLCritically low9.5-13.[address] [facility] HospitalComment on above:Performed By: #### CBC ####[facility] Ccmynnylil832[address] [place], [place] [address]Dr.Tishemily AepmuUCD022 103/hfJrarnm236-098Nqt [facility] HospitalComment on above:Performed By: #### CBC ####[facility] Sogwtgfdxa961471 [address] [place], [place] [address]Dr. Devin SureshRBC4.60 106/ulNormal4.20-5.40The [facility] HospitalComment on above: Performed By: #### CBC ####[facility] Bujnynlxdn6833[address] [place], [place] [address]Dr.Devin SureshWBC10.3 103/ulNormal4.0-11.0The [facility] HospitalComment on above:Performed By: #### CBC ####[facility] Eycnqhiqlg6670[address] [place], [place] [address]Dr.Devin SureshCT HEAD WO CON on 90-88-3305SZ HEAD WO CONNormalLima Memorial HospitalLACTATE/LACTIC ACIDon 30-23-0448Dzizvud [Moles/Vol]1.9 mmol/LNormal0.4-1.9The [facility] HospitalComment on above:Performed By: #### LACT ####[facility] Zalgsznkbh637[address] [place], [place] [address]Dr. Devin SureshGARWOOD OF CARE GLUCOSEon 06-11-2022 Glucose [Mass/Vol]245 mg/dLCritically xzly12-270Zkl [facility] HospitalComment on above:Performed By: #### POCGLUC ####[facility] Vvwbbbcwwi716[address] [place], [place] [address]Dr. Devin SureshPROF 14(COMP METB)on 13-37-5603Obauybd [Mass/Vol]3.7 g/dLNormal3.4-5.0The [facility] HospitalComment on above:Performed By: #### CMP, HSTROPN ####[facility] Xaelmrxlca78[address] [place] [address]Dr. Yilan ChangAlbumin/Globulin [Mass ratio]1.0 {ratio} NormalThe St. [facility] HospitalComment on above:Performed By: #### CMP, HSTROPN ####[facility] Jacielahcv9[address] [place] [address]Dr. Yilan ChangALP [Catalytic activity/Vol]123 U/LCritically fujq97-710Nqq [facility] HospitalComment on above:Performed By: #### CMP, HSTROPN ####[facility] Ztjgndgzte4[address] [place] [address]Dr. Yilan ChangALT [Catalytic activity/Vol]15 U/COvuaxa50-72Pav [facility] HospitalComment on above:Performed By: #### CMP, HSTROPN ####[facility] Sgzlscwkzb6378 [place] [address]Dr. Yilan ChangAnion gap [Moles/Vol]12.7 mmol/LNormal The [facility] HospitalComment on above:Performed By: #### CMP, HSTROPN ####[facility] Kztkkdahrn74[address] [place] [address]Dr. Yilan ChangAST [Catalytic activity/Vol]11 U/LCritically bfn53-68Til [facility] HospitalComment on above:Performed By: #### CMP, HSTROPN ####[facility] Zerhybxotc32[address] [place], [place] [address]Dr. Yilan ChangBilirubin [Mass/Vol]0.4 mg/dLNormal0.2-1.0The [facility] HospitalComment on above:Performed By: #### CMP, HSTROPN ####[facility] Aebdiepryq05[address] [place], [place] [address]Dr. Yilan ChangCalcium [Mass/Vol]9.5 mg/dLNormal 8.5-10.1The [facility] HospitalComment on above:Performed By: #### CMP, HSTROPN ####[facility] Dreyfzastx70[address] [place] [address]Dr. Yilan ChangChloride [Moles/Vol]105 mmol/RWenabe33-323Pzr [facility] Comment on above:Performed By: #### CMP, HSTROPN ####[facility] Zmblfwpbtm7[address] [place], [place] [address]Dr. Yilan ChangCO2 [Moles/Vol] 27.5 mmol/GSqxtrz64.0-32.0The [facility] HospitalComment on above:Performed By: #### CMP, HSTROPN ####[facility] Iicnvnabrh0[address] [place], [place] [address]Dr. Yilan ChangCreatinine [Mass/Vol]0.83 mg/dLNormal0.55-1.02The [facility] HospitalComment on above:Performed By: #### CMP, HSTROPN ####[facility] Iqfjvwptma4[address] [place], [place] [address]Dr. Yilan ChangEGFR- AF NIUEAN>60Normal>=60The [facility] HospitalComment on above:Performed By: #### CMP, HSTROPN ####[facility] Extymoveov[address] [place], [place] [address]Dr. Yilan ChangEGFR-NON AF NIUEAN>60Normal>=60The [facility] Comment on above:Performed By: #### CMP, HSTROPN ####[facility] Misololkmn7[address] [place], [place] [address]Dr. Yilan ChangGlobulin (S) [Mass/Vol]3.7 g/dLNormalThe St. [facility] HospitalComment on above:Performed By: #### CMP, HSTROPN ####[facility] Gmfqmaqmsf35[address] [place] [address]Dr. Yilan ChangGlucose [Mass/Vol]66 mg/dLCritically dwe81-148Mei [facility] HospitalComment on above:Performed By: #### CMP, HSTROPN ####[facility] Dwxjskdfbi2548 [place], [place]Dr. Yilan Suresh Potassium [Moles/Vol]3.2 mmol/LCritically low3.5-5.1The [facility] HospitalComment on above:Performed By: #### CMP, HSTROPN ####[facility] [address] [place] [address]Dr. Yilan ChangProtein [Mass/Vol]7.4 g/dL Normal6.4-8.2The St. [facility] HospitalComment on above:Performed By: #### CMP, HSTROPN ####[facility] [address] [place] [address]Dr. Yilan ChangSodium [Moles/Vol]142 mmol/ZFfvdrg328-012Yry St. [facility] HospitalComment on above:Performed By: #### CMP, HSTROPN ####[facility] Lyhgsmjvbo8697 [address] Yilan ChangUrea nitrogen [Mass/Vol]15.0 mg/dLNormal7.0-18.0The [facility]. [facility] HospitalComment on above: Performed By: #### CMP, HSTROPN ####[facility] Mbernfbevk[address] [place], [place] [address]r. Yilan ChangUrea nitrogen/Creatinine [Mass ratio] 18.1 mg/mgNormalThe St. Vincent HospitalComment on above:Performed By: #### CMP, HSTROPN ####[facility] Sgvopetaql[address] [place], [place] [address]Dr. Yilan ChangTROPONIN, HIGH SENSITIVITYon 95-83-0201CRPNEY5.5 pg/mLNormal 4.0-51.3The [facility] HospitalComsheridan community hospital on above:Result Comment: CUT-OFF POINTS HAVE BEEN ESTABLISHED BASED ON THE FOURTH UNIVERSAL DEFINITIONS OF MY OCARDIALINFARCTION. THE UPPER REFERENCE LIMIT (URL) OF TROPONIN, DEFINED THE 99TH PERCENTILE OFcTnI DISTRIBUTION IN A REFERENCE POPULATION, HAS BEEN CONFIRMED THE DECISION THRESHOLDFOR [place] DIAGNOSIS.Performed By: #### HSTROPN ####[facility] Hlcmejiuwq[address] [place], [place] [address]Vz. Devin SureshHSTROP5.1 pg/mLNormal4.0-51.3The [facility] HospitalComment on above: Result Comment: CUT-OFF POINTS HAVE BEEN ESTABLISHED BASED ON THE FOURTH UNIVERSAL DEFINITIONS OF MYOCARDIALINFARCTION. THE UPPER REFERENCE LIMIT (URL) OF TROPONIN, DEFINED THE 99TH PERCENTILE OFcTnI DISTRIBUTION IN A REFERENCE POPULATION, HAS BEEN CONFIRMED THE DECISION THRESHOLDFOR [place] DIAGNOSIS. Performed By: #### CMP, HSTROPN ####[facility] Dofjxzcsds[address] [place], [place]Dr. Devin SureshXR CHEST 1 Von 03-55-7569IV CHEST [address] Vincent HospitalCHEMISTRYOrdered By: Lab ROPUser on 92-34-6708Ukdpsas [Mass/Vol]269 mg/lPGmnp21 - 99 mg/dLFTMC POC SubsectionComment on above:Result Comment: Notified RN/MDPOC Device [id number] Interpretation CodeFTMC POC SubsectionPOC User [id number] Interpretation CodeFTMC POC Subsection POC UsernameMURRAY, EMILYInvalid Interpretation CodeFTMC POC SubsectionGlucose [Mass/Vol]378 mg/jCBory55 - 99 mg/dLFTMC POC SubsectionComment on above:Result Comment: Cleaned MeterPOC Device [id number] Interpretation CodeFTMC POC SubsectionPOC User [id number] Interpretation CodeFTMC POC Subsection POC UsernameMETRO, RACHELLEInvalid Interpretation CodeFTMC POC SubsectionGlucose [Mass/Vol]492 mg/dLInvalid Interpretation Code55 - 99 mg/dLFTMC POC Subsection POC Device [id number] Interpretation CodeFTMC POC SubsectionPOC User [id number] Interpretation CodeFTMC POC SubsectionPOC UsernameUHEIDY LOPEZInvalid Interpretation CodeFTMC POC SubsectionCHEMISTRYOrdered By: SYSTEM SYSTEM on 54-30-4352Zmangwx [Mass/Vol]3.8 g/dLNormal3.3 - 5.0 gm/dLFTMC Remisol Albumin/Globulin [...] mg/dL Normal8.9 - 11.1 mg/dLFTMC RemisolChloride [Moles/Vol]94 mmol/XFwz106 - 111 mmol/LFTMC RemisolCO2 [Moles/Vol]24 mmol/IOiamlo83 - 31 mmol/LFTMC Remisol Creatinine [Mass/Vol]0.8 mg/dLNormal0.5 - 1.3 mg/dLFTMC RemisolGFR/1.73 sq M.predicted among blacks MDRD (S/P/Bld) [Vol rate/Area]mL/min/1.73 d2Jfrecv >=59mL/min/1.73 m2FT[facility] Chem SGFR/1.73 sq M.predicted among non-blacks MDRD (S/P/Bld) [Vol rate/Area]mL/min/1.73 q2Pryzvw>=59mL/min/1.73 m2[facility] Chem S Globulin (S) [Mass/Vol]3.5 g/dLNormal1.4 - 4.0 gm/dLFTMC RemisolGlucose [Mass/Vol]484 mg/dLInvalid Interpretation Code55 - 199 mg/dLFTMC RemisolComment on above:Result Comment: Critical Result verified by repeat analysis\Critical Result S_[id number] Called to ELVIS DUNN AT by GLYNN BRYANT And Read Back For Confirmation at: 06/02/2022 17:16:15Lipase [Catalytic activity/Vol]27 U/L Bbcuxa17 - 58 unit/LFTMC RemisolPotassium [Moles/Vol]4.0 mmol/LNormal3.5 - 5.3 mmol/LFTMC RemisolProtein [Mass/Vol]7.3 g/dLNormal6.0 - 7.8 gm/dLFTMC Remisol Sodium [Moles/Vol]129 mmol/GNhd551 - 145 mmol/LFTMC RemisolUrea nitrogen [Mass/Vol]16 mg/dLNormal5 - 21 mg/dLFTMC RemisolUrea nitrogen/Creatinine [Mass ratio]20 mg/ucQixhmz88 - 20FT[facility] RemisolCOAGULATIONOrdered By: Breanna Hammond on 62-57-7430dLUB Coag (PPP) [Time]62.6 sHigh25.1 - 36.5 second(s)[facility] Auto CoagINR Coag (PPP) [Relative time]1.0 {INR}Invalid Interpretation CodeFTMC Auto CoagPT Coag (PPP) [Time]11.5 sNormal9.4 - 12.5 second(s)[facility] Auto CoagHEMATOLOGYOrdered By: SYSTEM SYSTEM on 61-50-3760Qunxvqnqo/100 WBC (Bld)0.7 %Normal0.0 - 2.0 % [facility] HemeAutoSSBasophils/Leukocytes Auto (Bld) [Pure # fraction]0.1 E9/LNormal 0.0 - 0.2 E9/LFTMC HemeAutoSSEosinophils/100 WBC (Bld)1.6 %Normal0.0 - 8.0 %[facility] HemeAutoSSEosinophils/Leukocytes Auto (Bld) [Pure # fraction]0.1 E9/LNormal0.0 - 0.5 E9/LFTMC HemeAutoSSLymphocytes/100 WBC (Bld)19.7 %Mjhhlq48.0 - 50.0 %[facility] HemeAutoSSLymphocytes/Leukocytes Auto (Bld) [Pure # fraction]1.6 E9/LNormal1.0 - 4.0 E9/LFTMC HemeAutoSSMonocytes/100 WBC (Bld)5.7 %Normal4.0 - 14.0 %[facility] HemeAutoSSMonocytes/Leukocytes Auto (Bld) [Pure # fraction]0.5 E9/LNormal0.2 - 1.0 E9/LFTMC HemeAutoSSNeutrophils/100 WBC (Bld)72.3 %Bcxzuo45.0 - 75.0 %[facility] HemeAutoSSNeutrophils/Leukocytes Auto (Bld) [Pure # fraction]5.8 E9/LNormal2.0 - 7.5 E9/LFTMC HemeAutoSSHEMATOLOGYOrdered By: Karen Murphy on 06-02-2022 Erythrocyte distribution width (RBC) [Ratio]13.4 %Avhvar41.9 - 14.2 %[facility] HemeAutoSSHematocrit (Bld) [Volume fraction]37.8 %Hwbojt11.0 - 46.0 %[facility] HemeAutoSSHemoglobin (Bld) [Mass/Vol]12.8 g/aYJwjaxd92.0 - 16.0 gm/dLFTMC HemeAutoSSMCH (RBC) [Entitic mass]30.3 hdXiqfwf48.0 - 34.0 pgFTMC HemeAutoSSMCHC (RBC) [Mass/Vol]33.9 g/wUYuvrra82.4 - 36.0 gm/dLFTMC HemeAutoSSMCV (RBC) [Entitic vol]89.2 cJCkidnw75.0 - 100.0 fLFTMC HemeAutoSSPlatelet mean volume (Bld) [Entitic vol]7.3 fLNormal6.4 - 10.8 fLFTMC HemeAutoSSPlatelets (Bld) [#/Vol]281.0 E9/PPrmuyu235.0 - 500.0 E9/LFTMC HemeAutoSSRBC (Bld) [#/Vol]4.2 E12/LLow4.3 - 5.9 E12/LFTMC HemeAutoSSWBC corrected for nucl RBC Auto (Bld) [#/Vol]8.0 E9/LNormal4.0 - 11.0 E9/LFTMC HemeAutoSSURINALYSISOrdered By: Gigi Morrison on 11-69-6798Wwnqhghf LM Ql (Urine sed)Trace /HPFNormalTrace/HPFFTMC UA Auto [...] 6:10 PM)Invalid Interpretation CodeNegativeFTMC UA Auto SS [place].plasma/[place].RBC (Bld) [Mass ratio]0-3 /HPFNormal0-3/HPFFTMC UA Auto SSNitrite Ql (U)Negative (06/02/22 6:10 PM)NormalNegativeFT UA Auto SSpH (U)5.5 *NA* (06/02/22 6:10 PM)Invalid Interpretation Code5.0 - 9.0FTMC UA Auto SSProtein (U) [Mass/Vol]Negative (06/02/22 6:10 PM)NormalNegativeFTMC UA Auto SSSpecific gravity (U) [Rel density] 1.010 *NA* (06/02/22 6:10 PM)Invalid Interpretation Code1.005 - 1.030FT[facility] UA Auto SSUA Spec DescClean Catch (06/02/22 6:10 PM)NormalFTMC UA Auto SSUrobilinogen Qn (U)0.2167611 {Sheyla'U}/dL Normal0.0 - 1.0 EU/dLOKLAHOMA HOSPITAL ASSOCIATION UA Auto SSWBC Auto Ql (U)Negative (06/02/22 6:10 PM)NormalNegativeOKLAHOMA HOSPITAL ASSOCIATION UA Auto SSWBC LM.HPF (Urine sed) [#/Area]0-5 /HPFNormal0-5/HPFOKLAHOMA HOSPITAL ASSOCIATION UA Auto SSYeast LM Ql (Urine sed)Trace (06/02/22 6:10 PM)NormalOKLAHOMA HOSPITAL ASSOCIATION UA Auto SSCULTURE URINEon 18-06-6045GHMGEIL URINE NormalThe St. Vincent HospitalComment on above:Performed By: #### URCX ####[facility] Hcnfsmcnlr[address] [place], [place] [address]Dr. Devin Suresh POINT OF CARE GLUCOSEon 67-95-8721Bzgpivp [Mass/Vol]359 mg/dLCritically high 74-106The St. [facility] HospitalComment on above:Performed By: #### POCGLUC ####[facility] Qblqdgvkco[address] [place], [place] [address]Dr. Tishemily KerwinAMYLASEon 63-72-6035Xwtagbw [Catalytic activity/Vol]15 U/LCritically noa75-842Rkk St. [facility] HospitalComment on above:Performed By: #### RADHA DELGADO, CMP ####[facility] Bkhracdbpz68[address] [place], [place] [address]Dr. Devin SureshCBC AUTO DIFFon 39-44-6618SOHE #0.0 103/ulNormal0.0-0.1The St[facility] HospitalComment on above:Performed By: #### CBC ####[facility] Ohzchbvbuw[address] [place], [place] [address]Dr.Tishemily KerwinBasophils/100 WBC (Bld)0.2 %Normal0.2-2.0The [facility] HospitalComment on above:Performed By: #### CBC ####[facility] Kllryfauls60[address] [place], [place] [address]Dr.Devin ChangEO #0.1 103/ulNormal0.0-0.7The [facility] HospitalComment on above:Performed By: #### CBC ####[facility] Jltrynrssh[address] [place] [address]Dr.Tishlan ChangEosinophils/100 WBC (Bld)0.7 %Critically low0.9-7.0The [facility] HospitalComment on above:Performed By: #### CBC ####[facility] Iyiyvpgijk7260[address] [place], [place] [address]Dr. Yilan ChangErythrocyte distribution width (RBC) [Ratio]12.7 %Tfnhaj52.0-15.0The [facility] HospitalComment on above:Performed By: #### CBC ####[facility] Vlccnsjxlg03[address] [place], [place] [address]Dr.Yilan ChangHematocrit (Bld) [Volume fraction]34.7 %Critically low36.0-48.0The [facility] HospitalComment on above:Performed By: #### CBC ####[facility] Hyetnknyqi368[address] [place], [place] [address]Dr.Tishlan ChangHemoglobin (Bld) [Mass/Vol]12.1 g/dL Lllzpf39.0-16.0The [facility] HospitalComment on above:Performed By: #### CBC ####[facility] Tfvugomlxh5[address] [place], [place] [address]Dr. Yilan ChangIG #0.05 10e3/ulCritically high0.00-0.03The St[facility] HospitalComment on above:Performed By: #### CBC ####[facility] Srhdeyudiq934[address] [place], [place] [address]Dr.Yilan ChangIG %0.4 %Normal0.0-0.5The [facility] HospitalComsheridan [facility] hospital on above:Performed By: #### CBC ####[facility] Bejyuxjizr86[address] [place], [place] [address]Dr.Yilan ChangLYMPH #0.3 103/ulCritically low1.2-3.8The [facility] HospitalComment on above:Performed By: #### CBC ####[facility] Sgexlzolcr464[address] [place], [place] [address]Dr.Yilan ChangLymphocytes/100 WBC (Bld)2.6 %Critically low20.5-60.0The [facility] HospitalComment on above:Performed By: #### CBC ####[facility] [address]vftmzdosp[address] [place] [address]Dr.Devin SureshMANUAL DIFF REQ NONormalThe St. Vincent HospitalComment on above:Performed By: #### CBC ####[facility] Nyylofmkbd8833[address] [place], [place] [address]Dr. Devin SureshH (RBC) [Entitic mass]30.6 roDkpgue88.7-34.0The [facility] Comment on above:Performed By: #### CBC ####[facility] Iiunbrgchu5917[address] [place], [place] [address]Dr.Tsihemily SureshHC (RBC) [Mass/Vol]34.9 g/dL Pxorsa85.9-35.2The [facility] HospitalComment on above:Performed By: #### CBC ####[facility] Hnohliptfj190[address] [place], [place] [address]Dr. Devin SureshV (RBC) [Entitic vol]87.6 mQYbphnl37.0-99.0The [facility] Comment on above:Performed By: #### CBC ####[facility] Ldrylqvfpn724[address] [place], [place] [address]Dr.Devin SureshMONO #0.3 103/ulNormal0.3-0.8 [facility] HospitalComment on above:Performed By: #### CBC ####[facility] Dnaexbdcsg504[address] [place], [place] [address]Dr.Devin Suresh Monocytes/100 WBC (Bld)2.5 %Normal1.7-12.0The [facility] HospitalComment on above: Performed By: #### CBC ####[facility] Vhnlfeqpxz[address] [place], [place] [address]DrGonzalo SureshNEUT #11.9 103/ulCritically high1.4-6.[address] [facility] HospitalComment on above:Performed By: #### CBC ####[facility] Zqmvtqkfce17[address] [place], [place] [address]Dr.Devin Suresh Neutrophils/100 WBC (Bld)93.6 %Critically high43.0-75.0The [facility] Comment on above:Performed By: #### CBC ####[facility] [address]zjzpgejqd44[address] [place] [address]Dr.Devin SureshPlatelet mean volume (Bld) [Entitic vol]9.2 fLCritically low9.5-13.5The St. [facility] HospitalComment on above: Performed By: #### CBC ####[facility] [address]qerwakv[address] [place] [address]Dr.Devin XzbypDGR608 103/itVoolzm688-522Fqj St. [facility] HospitalComment on above:Performed By: #### CBC ####[facility] Uusvayalij47[address] [place] [address]Dr.Devin SureshRBC3.96 106/ul Critically low4.20-5.40The [facility] HospitalComment on above:Performed By: #### CBC ####[facility] Gyamhbmhfk386[address] [place], [place] [address]Dr. Devin SureshWBC12.8 103/ulCritically high4.0-11.0The [facility] HospitalComment on above:Performed By: #### CBC ####[facility] Lmslaebdzy[address] [place], [place] [address]Dr.Devin SureshCovid-19 PCR ([facility]on 04-20-2022 SARS-CoV-2 (COVID-19) RNA EBONIE+probe Ql (Unsp spec)Not detectedNormalNOT DETECTED The St. [facility] HospitalComment on above:Result Comment: When diagnostic testing [...] for this test is supported by the Database Security Expert of Health and Human Service's declaration that [...] no longer be used).Performed By: #### CVDTBH ####[facility] Xdvzjwkdrj8[address] [place] [address]Dr. Yilan ChangER URINE PROFILEon 60-63-5018Aafpegtgx Ql (U)NegativeNormalNEGATIVELima Memorial Hospital Comment on above:Performed By: #### MERCEDEZ UMICRO ####[facility] Dtifquqhem[address] [place] [address]Dr. Yilan ChangClarity (U) CLEARNormalCLEARLima Memorial HospitalComment on above:Performed By: #### MERCEDEZ UMICRO ####[facility] Xgnaajtuni9[address] [place], [place] [address]Dr. Yilan ChangColor (U)LT. YELLOWNormalYELLOWLima Memorial HospitalComment on above:Performed By: #### MERCEDEZ UMICRO ####[facility] Zhr[address]zverr[address] [place], [place] [address]Dr. Devin ChangEMARLYAHDA micrscopic examination will be performed if indicated.NormalThe St. Vincent HospitalComment on above: Performed By: #### MERCEDEZ UMICRO ####[facility] Ciylobajat[address] [place], [place] [address]Dr. Yilan ChangGlucose Ql (U)>1000AbnormalNEGATIVELima Memorial HospitalComment on above:Performed By: #### MERCEDEZ UMICRO ####[facility] [address]zpzmy[address] [place] [address]Dr. Yilan Suresh Hemoglobin Ql (U)TRACE-INTACTAbnormalNEGATIVELima Memorial HospitalComment on above:Performed By: #### MERCEDEZ, UMICRO ####[facility] G[address]ecyivtl39[address] [place] [address]Dr. Yilan ChangKetones Ql (U)TRACEAbnormalNEGATIVE The St. [facility] HospitalComment on above:Performed By: #### MERCEDEZ UMICRO ####[facility] Hiytfsgzid6[address] [place] [id number]. Devin ChangLEUKOCYTESNegativeNormalNEGATIVEThe St. [facility] HospitalComment on above:Performed By: #### MERCEDEZ UMICRO ####[facility] Maudujfssk230[address] [place] [id number]. Devin SureshNitrite Ql (U)PositiveAbnormal NEGATIVEThe Dayhoit HospitalComment on above:Performed By: #### MERCEDEZ UMICRO ####[facility] Minxknubas[address] [place] [id number]. Devin ChangpH (U)5.0 [pH]Normal5-9The St[facility] HospitalComment on above: Performed By: #### MERCEDEZ UMICRO ####[facility] Emqadvefbw232[address] [place] [id number]. Devin SureshSPEC GRAVITY1.740Wajxti5.005-<=1.025The St[facility] HospitalComment on above:Performed By: #### MERCEDEZ ICRO ####[facility] Tfppfytqaa47[address] [place] [address]Dr. Devin SureshUA PROTEINNegativeNormalNEGATIVE/ TRACEThe [facility]ho[facility] HospitalComment on above: Performed By: #### MERCEDEZ UMICRO ####[facility] Rpvzazfcye4[address] [place] [id number]. Devin SureshUR MICRO INDINDICATEDNormalThe Dayhoit HospitalComment on above:Performed By: #### MERCEDEZ UMICRO ####[facility] Fqzbzbccor8[address] [place] [id number]. Devin SureshUrobilinogen Qn (U)0.2 {Sheyla'U}/dLNormal0.2 - 1.0The [facility] HospitalComment on above: Performed By: #### MERCEDEZ UMICRO ####[facility] Fhyopfyutc[address] [place] [address]Dr. Devin SureshINFLUENZA A AND B AGon 04-20-2022 INFLUENZA A AGNegativeNormalNEGATIVE SEE COMMENTThe [facility] on above:Performed By: #### RSV, INFLUAB ####[facility] Ybxkedoydl[address] [place], [place] [address]Dr. Devin SureshINFLUENZA B AGNegativeNormal NEGATIVE SEE COMMENTThe [facility] on above:Performed By: #### RSV, INFLUAB ####[facility] Vghoudqjhz[address] [place], [place] [address]Dr. Devin SureshINFLUPOSHSEE [facility] CenterComsheridan [facility] hospital on above:Result Comment: NOTE: Live attenuated influenzae vaccine viruses can cause a positive result for a rapid influenza diagnostic test if administered up to 7 days prior to rapid testing.Performed By: #### RSV, INFLUAB ####[facility] Jelvxmzwic[address] [place], [place] [address]r. Devin Suresh INFLUPOSHBSEE [facility] on above:Result Comment: NOTE: Live attenuated influenzae vaccine viruses can cause a positive result for a rapid influenza diagnostic test if administered up to 7 days prior to rapid testing.Performed By: #### RSV, INFLUAB ####[facility] Uwnzwweuhx[address] [place], [place] [address]r. Devin SureshINTERNAL CONTROLSWithin Normal LimitsNormalWithin Normal LimitsThe [facility] on above:Performed By: #### RSV, INFLUAB ####[facility] [address]jvzgithrx[address] [place], [place] [address]r. Devin SureshLACTATE/LACTIC ACIDon 82-61-4069Bakxhoj [Moles/Vol]1.9 mmol/LNormal0.4-1.9The [facility] Hospitalment on above: Performed By: #### LACT ####[facility] Aodmailqxk80[address] [place], [place] [address]Dr. Devin SureshLIPASEon 32-31-0874Lqrkte [Catalytic activity/Vol]111.0 U/VXaxlts77.0-393.0The [facility] HospitalComment on above: Performed By: #### LIPA, RADHA, CMP ####[facility] Gfxtnopkoa60[address] [place] [address]Dr. Devin SureshPOINT OF CARE GLUCOSEon 04-20-2022 Glucose [Mass/Vol]573 mg/dLCritically vkas27-622Bao St[facility] HospitalComsheridan [facility] hospital on above:Result Comment: Lab Draw OrderedPerformed By: #### POCGLUC ####[facility] Uismoyuhlk[address] [place] [address]Dr. Devin SureshPROF 14(COMP METB)on 37-49-3922Ozmeoec [Mass/Vol]3.4 g/dLNormal3.4-5.0The [facility] HospitalComment on above:Performed By: #### RADHA DELGADO, CMP ####[facility] Pdmbitncka1885 [place] [address]Dr. Devin Suresh Albumin/Globulin [Mass ratio]0.9 {ratio}NormalThe St. [facility] HospitalComsheridan community hospital on above:Performed By: #### RADHA DELGADO, CMP ####[facility] Fmewhbgqtc7[address] [place] [address]Dr. Devin SureshALP [Catalytic activity/Vol] 132 U/LCritically fpqw35-722Wik St[facility] HospitalComsheridan [facility] hospital on above:Performed By: #### RADHA DELGADO, CMP ####[facility] Qnkqqczhek095[address] [place] [address]Dr. Devin SureshALT [Catalytic activity/Vol]16 U/L Ofidjf93-28Ztj [facility] HospitalComsheridan community hospital on above:Performed By: #### RADHA DELGADO, CMP ####[facility] Wmniqtqqut3[address] [place] [address]Dr. Devin SureshAnion gap [Moles/Vol]12.3 mmol/LNormalThe St. [facility] HospitalComment on above:Performed By: #### RADHA DELGADO, CMP ####[facility] Dghdrmaecs[address] [place], [place] [address]Dr. Devin ChangAST [Catalytic activity/Vol]9 U/LCritically mcw61-19Uhp [facility] HospitalComment on above:Performed By: #### RADHA DELGADO, CMP ####[facility] Orkkciajrv8[address] [place] [address]Dr. Yilan ChangBilirubin [Mass/Vol]0.9 mg/dLNormal0.2-1.0The [facility] HospitalComment on above:Performed By: #### RADHA DELGADO, CMP ####[facility] Shmqbafbit75[address] [place] [address]Dr. Yilan ChangCalcium [Mass/Vol]9.0 mg/dLNormal8.5-10.1The [facility] HospitalComment on above:Performed By: #### RADHA DELGADO, CMP ####[facility] Eodvmdhvvz[address] [place], [place] [address]Dr. Yilan ChangChloride [Moles/Vol]96 mmol/LCritically yom20-514Ics St[facility] HospitalComment on above:Performed By: #### RADHA DELGADO, CMP ####[facility] Zkfqzhoksd[address] [place], [place] [address]Dr. Yilan ChangCO2 [Moles/Vol]26.0 mmol/FHhzpha35.0-32.0The [facility] Comment on above:Performed By: #### RADHA DELGADO, CMP ####[facility] Vxmxqycuah[address] [place], [place] [address]Dr. Yilan ChangCreatinine [Mass/Vol]1.15 mg/dLCritically high0.55-1.02The [facility] HospitalComment on above:Performed By: #### RADHA DELGADO, CMP ####[facility] Gwifvscjik[address] [place], [place] [address]Dr. Yilan ChangEGFR-AF NIUEAN>60Normal>=[address] [facility] HospitalComment on above:Performed By: #### RADHA DELGADO, CMP ####[facility] Ogdtybufum[address] [place], [place] [address]Dr. Yilan ChangEGFR-NON AF LJEHVSVJ18 mL/min/1.99r0Ygkcnnbikm low>=60The [facility] HospitalComment on above:Performed By: #### RADHA DELGADO, CMP ####[facility] [address]qkbhpgc[address] [place], [place] [address]Dr. Yilan ChangGlobulin (S) [Mass/Vol]3.7 g/dLNoRegional Medical CenterComment on above:Performed By: #### RADHA DELGADO, CMP ####[facility] Kctipnrsgm[address] [place] [address]Dr. Yilan ChangGlucose [Mass/Vol]590 mg/dLCritically xrgp50-672Rra [facility] HospitalComment on above:Performed By: #### RADHA DELGADO, CMP ####[facility] Cqlsqyejmn85[address] [place] [address]Dr. Tishlan Suresh Potassium [Moles/Vol]4.3 mmol/LNormal3.5-5.1The [facility] HospitalComment on above:Performed By: #### RADHA DELGADO, CMP ####[facility] Isyyqinaxk[address] [place] [address]Dr. Yilan ChangProtein [Mass/Vol]7.1 g/dL Normal6.4-8.2The [facility] HospitalComment on above:Performed By: #### RADHA DELGADO, CMP ####[facility] Clgzdkekkj46[address] [place] [address]Dr. Yilan ChangSodium [Moles/Vol]130 mmol/LCritically fyw632-444Zok [facility] Hospitalment on above:Performed By: #### RADHA DELGADO, CMP ####[facility] Tgtpofdgrb26[address] [place] [address]Dr. Yilan ChangUrea nitrogen [Mass/Vol]22.0 mg/dLCritically high7.0-18.0The [facility] Comment on above:Performed By: #### RADHA DELGADO, CMP ####[facility] Y[address]ufddsvs[address] [place] [address]Dr. Yilan ChangUrea nitrogen/Creatinine [Mass ratio]19.1 mg/mgNoRegional Medical CenterComment on above:Performed By: #### RADHA DELGADO, CMP ####[facility] Ahiruzckom[address] [place] [address]Dr. Devin SureshRSVon 39-32-0315NFJ AG NegativeNormalNEGATIVEThe [facility] on above:Performed By: #### RSV, INFLUAB ####[facility] Guzcwudklr[address] [place], [place] [address]Dr. Devin SureshURINE MICROSCOPIC ONLYon 52-85-3274CVOGRIDAXJLRTKDHGczbgmjz NONE SEENThe St. [facility] HospitalComsheridan community hospital on above:Performed By: #### MERCEDEZ UMICRO ####[facility] Scutjjicdm[address] [place] [address]Dr. Devin SureshBacteria identified Cx Nom (U)INDICATEDCleveland Clinic South Pointe Hospital Comment on above:Performed By: #### MERCEDEZ UMICRO ####[facility] Ltpiuryvoo0617 [address] Devin SureshCASTNONE SEEN NormalNONE SEENOhioHealth Southeastern Medical Center on above:Performed By: #### MERCEDEZ UMICRO ####[facility] Obsoltbovb[address] [place], [place] [address]Dr. Devin SureshCrystals LM Nom (Urine sed)NONE SEENNormalNONE SEENOhioHealth Southeastern Medical Center on above:Performed By: #### MERCEDEZ UMICRO ####[facility] Xnzjekgffu[address] [place], [place] [address]r. Devin Suresh Epithelial cells LM Ql (Urine sed)RAREResearch Belton HospitalE SEEN /RARELima Memorial Hospital Comment on above:Performed By: #### MERCEDEZ UMICRO ####[facility] Ygllijpmze[address] [place], [place] [address]r. Devin SureshMUCOUSNONE SEEN NormalNONE SEENLima Memorial HospitalComsheridan community hospital on above:Performed By: #### MERCEDEZ UMICRO ####[facility] Yqufiiysat[address] [place], [place] [address]Dr. Devin SureshRBCNONE SEENAbnormal0-2The [facility] HospitalCom[facility] on above:Performed By: #### MERCEDEZ UMICRO ####[facility] Xpltsaoyik[address] [place], [place] [address]Dr. Devin SureshWBC2-5AbnormalNONE SEENThe Dayhoit HospitalComment on above:Performed By: #### CHUCKY NEWSOME ####[facility] Xdetjcnbyb[address] [place], [place]Dr. Devin SureshXR CHEST 2 Von 51-75-4583IL CHEST 2 VNPremier Health Upper Valley Medical CenterCHEMISTRYOrdered By: Lab Pop on 67-49-1670Lqcjeqi [Mass/Vol]105 mg/jVTnjx29 - 99 mg/dLFTMC POC SubsectionComment on above:Result Comment: Notified RN/MDPOC Device SN [id number] Interpretation CodeFTMC POC SubsectionPOC User [id number] Invalid Interpretation CodeFTMC POC SubsectionPOC UsernameBiemler, Michi Invalid Interpretation CodeFTMC POC SubsectionGlucose [Mass/Vol]50 mg/dLLow55 - 99 mg/dLFTMC POC SubsectionComment on above:Result Comment: Notified RN/MDPOC Device [id number] Interpretation CodeFTMC POC SubsectionPOC User ID [id number] Interpretation CodeFTMC POC SubsectionPOC UsernameBiemler, MelissaInvalid Interpretation CodeFTMC POC SubsectionGlucose [Mass/Vol]53 mg/dL Low55 - 99 mg/dLFTMC POC SubsectionComment on above:Result Comment: Notified RN/MDPOC Device [id number] Interpretation CodeFTMC POC SubsectionPOC User [id number] Interpretation CodeFTMC POC SubsectionPOC Username Julietaler, MelissaInvalid Interpretation CodeFTMC POC SubsectionCHEMISTRYOrdered By: SYSTEM SYSTEM on 60-79-9108Bliyi gap [Moles/Vol]4 mmol/LLow6 - 16 mEq/LFTMC RemisolCalcium [Mass/Vol]8.5 mg/dLLow8.9 - 11.1 mg/dLFTMC RemisolChloride [Moles/Vol]112 mmol/UEcpa610 - 111 mmol/LFTMC RemisolCO2 [Moles/Vol]25 mmol/L Lybqig14 - 31 mmol/LFTMC RemisolCreatinine [Mass/Vol]1.1 mg/dLNormal0.5 - 1.3 mg/dLFTMC RemisolGFR/1.73 sq M.predicted among blacks MDRD (S/P/Bld) [Vol rate/Area]mL/min/1.73 x2Zlhxvw>=59mL/min/1.73 m2FTMC Chem SGFR/1.73 sq M.predicted among non-blacks MDRD (S/P/Bld) [Vol rate/Area]54 mL/min/1.73 m2Low >=59mL/min/1.73 m2FTMC Chem SGlucose [Mass/Vol]122 mg/sPUubyte40 - 199 mg/dLFTMC RemisolMagnesium [Mass/Vol]2.6 mg/dLHigh1.3 - 2.4 mg/dLFTMC RemisolPotassium [Moles/Vol]3.7 mmol/LNormal3.5 - 5.3 mmol/LFTMC RemisolSodium [Moles/Vol]137 mmol/ZVftzac382 - 145 mmol/LFTMC RemisolUrea nitrogen [Mass/Vol]27 mg/dLHigh5 - 21 mg/dLFTMC RemisolUrea nitrogen/Creatinine [Mass ratio]24 mg/jiRfcf76 - 20FTMC RemisolCHEMISTRYOrdered By: SYSTEM SYSTEM on 32-61-2962Houyx gap [Moles/Vol]11 mmol/LNormal6 - 16 mEq/LFTMC RemisolCalcium [Mass/Vol]8.8 mg/dLLow8.9 - 11.1 mg/dLFTMC RemisolChloride [Moles/Vol]102 mmol/ECgmace145 - 111 mmol/LFTMC RemisolCO2 [Moles/Vol]22 mmol/YUualks30 - 31 mmol/LFTMC RemisolCreatinine [Mass/Vol]1.0 mg/dLNormal0.5 - 1.3 mg/dLFTMC RemisolGFR/1.73 sq M.predicted among blacks MDRD (S/P/Bld) [Vol rate/Area]mL/min/1.73 a0Bhitsk>=59mL/min/1.73 m2FT[facility] Chem SGFR/1.73 sq M.predicted among non-blacks MDRD (S/P/Bld) [Vol rate/Area]60 mL/min/1.73 q4Daorkc>=59mL/min/1.73 m2[facility] Chem SGlucose [Mass/Vol] 372 mg/fWVgmw03 - 199 mg/dLFT RemisolPotassium [Moles/Vol]4.4 mmol/LNormal3.5 - 5.3 mmol/LFTMC RemisolSodium [Moles/Vol]131 mmol/VUrt387 - 145 mmol/LFTMC RemisolUrea nitrogen [Mass/Vol]19 mg/dLNormal5 - 21 mg/dLFTMC RemisolUrea nitrogen/Creatinine [Mass ratio]19 mg/ahWiugqc23 - 20FT Fdafofb33- hydroxyvitamin D3 [Mass/Vol]8.1 ng/mLLow30.0 - 100.0 ng/mLFT RemisolAlbumin [Mass/Vol]3.4 g/dLNormal3.3 - 5.0 gm/dLFT RemisolAlbumin/Globulin [Mass ratio] 1.1 {ratio}Normal1.1 - 2.2FTMC RemisolALP [Catalytic activity/Vol]93 [iU]/d Kcacor02 - 98 Int._Unit/LFTMC RemisolALT No additional P-5'-P [Catalytic activity/Vol]14 [iU]/dNormal6 - 46 Int._Unit/LFTMC RemisolAnion gap [Moles/Vol] 18 mmol/LHigh6 - 16 mEq/LFTMC RemisolAST [Catalytic activity/Vol]12 [iU]/dNormal 5 - 43 Int._Unit/LFTMC RemisolBilirubin [Mass/Vol]0.8 mg/dLNormal0.0 - 1.1 mg/dL [facility] RemisolBilirubin.direct [Mass/Vol]0.2 mg/dLNormal0.1 - 0.4 mg/dLFTMC RemisolBilirubin.indirect [Mass or moles/Vol]0.6 mg/dLNormal0.1 - 0.9 mg/dLFTMC RemisolCalcium [Mass/Vol]8.7 mg/dLLow8.9 - 11.1 mg/dLFT RemisolChloride [Moles/Vol]100 mmol/OToj817 - 111 mmol/LFTMC RemisolCO2 [Moles/Vol]19 mmol/LLow 21 - 31 mmol/LFTMC RemisolCreatinine [Mass/Vol]0.9 mg/dLNormal0.5 - 1.3 mg/dL FT RemisolGFR/1.73 sq M.predicted among blacks MDRD (S/P/Bld) [Vol rate/Area] mL/min/1.73 t1Ccvvbd>=59mL/min/1.73 m2FT Chem SGFR/1.73 sq M.predicted among non-blacks MDRD (S/P/Bld) [Vol rate/Area]mL/min/1.73 t9Aslcpt>=59mL/min/1.73 m2 [facility] Chem SGlobulin (S) [Mass/Vol]3.2 g/dLNormal1.4 - 4.0 gm/dLFT Remisol Glucose [Mass/Vol]419 mg/kXIupl95 - 199 mg/dLFT RemisolLipase [Catalytic activity/Vol]22 U/BGbznnh15 - 58 unit/LFTMC RemisolMagnesium [Mass/Vol]1.5 mg/dL Normal1.3 - 2.4 mg/dLFT RemisolPhosphate [Mass/Vol]3.7 mg/dLNormal1.9 - 4.6 mg/dLFTMC RemisolPotassium [Moles/Vol]4.2 mmol/LNormal3.5 - 5.3 mmol/LFTMC RemisolProtein [Mass/Vol]6.6 g/dLNormal6.0 - 7.8 gm/dLFT RemisolSodium [Moles/Vol]133 mmol/HCns995 - 145 mmol/LFTMC RemisolUrea nitrogen [Mass/Vol]19 mg/dLNormal5 - 21 mg/dLFTMC RemisolUrea nitrogen/Creatinine [Mass ratio]21 mg/mg High10 - 20FT RemisolBeta hydroxybutyrate [Moles/Vol]0.51 mmol/LHigh0.02 - 0.27 mmol/LFTMC RemisolCHEMISTRYOrdered By: Sharla Montes on 44-65-7944NfO4d (Bld) [Mass fraction]9.7 %High<=5.9%[facility] ChemAutoSSCHEMISTRYOrdered By: Mary Lou Salas on 28-18-2018Nfbpmjsuezt peptide B (Bld) [Mass/Vol]11 pg/mLNormal5 - 80 pg/mLFTMC HemeManSSCHEMISTRYOrdered By: SYSTEM SYSTEM on 44-94-8269Bdduuddq I.cardiac [Mass/Vol]4.50 pg/mLLow10.10 - 27.10 pg/mLFTMC RemisolHEMATOLOGY Ordered By: SYSTEM SYSTEM on 98-02-2460Pabibniod/100 WBC (Bld)1.6 %Normal0.0 - 2.0 %[facility] HemeAutoSSBasophils/Leukocytes Auto (Bld) [Pure # fraction]0.1 E9/L Normal0.0 - 0.2 E9/LFTMC HemeAutoSSEosinophils/100 WBC (Bld)2.2 %Normal0.0 - 8.0 %[facility] HemeAutoSSEosinophils/Leukocytes Auto (Bld) [Pure # fraction]0.1 E9/L Normal0.0 - 0.5 E9/LFTMC HemeAutoSSLymphocytes/100 WBC (Bld)23.2 %Xiowbh07.0 - 50.0 %[facility] HemeAutoSSLymphocytes/Leukocytes Auto (Bld) [Pure # fraction]1.3 E9/L Normal1.0 - 4.0 E9/LFTMC HemeAutoSSMonocytes/100 WBC (Bld)6.0 %Normal4.0 - 14.0 %[facility] HemeAutoSSMonocytes/Leukocytes Auto (Bld) [Pure # fraction]0.3 E9/LNormal 0.2 - 1.0 E9/LFTMC HemeAutoSSNeutrophils/100 WBC (Bld)67.0 %Auiowx58.0 - 75.0 % [facility] HemeAutoSSNeutrophils/Leukocytes Auto (Bld) [Pure # fraction]3.8 E9/LNormal 2.0 - 7.5 E9/LFTMC HemeAutoSSHEMATOLOGYOrdered By: Mary Lou Salas on 04-06-2022 Erythrocyte distribution width (RBC) [Ratio]13.6 %Ajnhwb08.9 - 14.2 %[facility] HemeAutoSSHematocrit (Bld) [Volume fraction]38.9 %Srzyow25.0 - 46.0 %[facility] HemeAutoSSHemoglobin (Bld) [Mass/Vol]13.3 g/gCPkmvfu65.0 - 16.0 gm/dLFT HemeAutoSSMCH (RBC) [Entitic mass]30.2 klIouhht18.0 - 34.0 pgFTMC HemeAutoSSMCHC (RBC) [Mass/Vol]34.2 g/tVTkjyrw08.4 - 36.0 gm/dLFT HemeAutoSSMCV (RBC) [Entitic vol]88.1 sYTvqcqp07.0 - 100.0 fLOKLAHOMA HOSPITAL ASSOCIATION HemeAutoSSPlatelet mean volume (Bld) [Entitic vol]7.3 fLNormal6.4 - 10.8 fLOKLAHOMA HOSPITAL ASSOCIATION HemeAutoSSPlatelets (Bld) [#/Vol]279.0 E9/KApufit422.0 - 500.0 E9/LFROGER MILLS [facility] [place] HemeAutoSSRBC (Bld) [#/Vol]4.4 E12/LNormal4.3 - 5.9 E12/LFROGER MILLS [facility] [place] HemeAutoSSWBC corrected for nucl RBC Auto (Bld) [#/Vol]5.7 E9/LNormal4.0 - 11.0 E9/[facility] HemeAutoSSNo Panel InformationOrdered By: ANGPROCESSSERVER MICROBIOLOGY on 71-98-1757Asrgb Culture CharcoalNo growth at 2 days. Final to follow at 7 days.[facility] HospitalCT STROKE HEAD WOon 15-59-2374VS STROKE HEAD WONormalThe St. [facility] HospitalPOINT OF CARE GLUCOSEon 17-38-4680Cuubzpe [Mass/Vol]178 mg/dLCritically yebg08-972IetLima Memorial HospitalComment on above:Performed By: #### POCGLUC ####[facility] Igauuqedxr[address] [place], [place] [address]SlMaris Devin ChangXR CHEST 1 Von 78-47-8018DW CHEST 1 VNormalOhioHealth Mansfield Hospital AUTO DIFFon 36-92-5563DWMD #0.0 103/ulNormal0.0-0.1L[facility] HospitalComment on above:Performed By: #### CBC ####[facility] Gcqdexoyva80[address] [place] [address]Dr.Yilan ChangBasophils/100 WBC (Bld)0.2 %Normal0.2-2.0The St. Vincent HospitalComment on above:Performed By: #### CBC ####[facility] Ergwxteedq22[address] [place], [place] [address]Dr.Yilan ChangEO #0.0 103/ul Normal0.0-0.7The St. Vincent HospitalComment on above:Performed By: #### CBC ####[facility] Bfxyawqojq357[address] [place], [place] [address]Dr. Yilan ChangEosinophils/100 WBC (Bld)0.1 %Critically low0.9-7.0The St. Vincent HospitalComment on above:Performed By: #### CBC ####[facility] Nfriueclnc005[address] [place], [place] [address]Dr.Yilan ChangErythrocyte distribution width (RBC) [Ratio]13.0 %Vheefr19.0-15.0The [facility] Comment on above:Performed By: #### CBC ####[facility] Ztvwjwknhe88[address] [place], [place] [address]Dr.Tishlan ChangHematocrit (Bld) [Volume fraction]35.3 %Critically low36.0-48.0The [facility]. [facility] HospitalComment on above: Performed By: #### CBC ####[facility] Nfallgvjtv05[address] [place], [place] [address]Dr.Yilan ChangHemoglobin (Bld) [Mass/Vol]11.9 g/dL Critically low12.0-16.0The [facility]. [facility] HospitalComment on above:Performed By: #### CBC ####[facility] Fnvinmrwpm[address] [place], [place] [address]Dr. Yilan ChangIG #0.09 10e3/ulCritically high0.00-0.03The St. Vincent HospitalComment on above:Performed By: #### CBC ####[facility] Sjzmijsout335[address] [place], [place] [address]Dr.Yilan ChangIG %0.7 %Critically high0.0-0.5The St. Vincent HospitalComment on above:Performed By: #### CBC ####[facility] Aeinhfzary[address] [place] [address]Dr.Devin SureshLYMPH #2.3 103/ulNormal1.2-3.8The St. Vincent HospitalComment on above:Performed By: #### CBC ####[facility] Jqqqpuulpv22[address] [place] [address]Dr. Devin SureshLymphocytes/100 WBC (Bld)17.3 %Critically low20.5-60.0The [facility]. Vincent HospitalComment on above:Performed By: #### CBC ####[facility] Jomrfknylo38[address] [place] [address]Dr.Devin SureshMANUAL DIFF REQ NONormalThe St. Vincent HospitalComment on above:Performed By: #### CBC ####[facility] Gtqmbtvsjt[address] [place], [place] [address]Dr. Devin [facility]UN[facility] (RBC) [Entitic mass]30.9 scLkxywg17.7-34.0[facility] Comment on above:Performed By: #### CBC ####[facility] Scvqbmaqhk5030[address] [place], [place] [address]Dr.Devin SureshMCHC (RBC) [Mass/Vol]33.7 g/dL Conxui52.9-35.2The St. [facility] HospitalComment on above:Performed By: #### CBC ####[facility] Xzphcozevk[address] [place], [place] [address]Dr. Devin SureshV (RBC) [Entitic vol]91.7 wGLenjnc42.0-99.0The [facility] Comment on above:Performed By: #### CBC ####[facility] Xiiotxatzk[address] [place], [place] [address]Dr.Devin SureshMONO #0.6 103/ulNormal0.3-0.[address] [facility] HospitalComment on above:Performed By: #### CBC ####[facility] Eujypllccz[address] [place], [place] [address]DrMarisDevin Kerwin Monocytes/100 WBC (Bld)4.6 %Normal1.7-12.0[facility] HospitalComment on above: Performed By: #### CBC ####[facility] Pxhgwguukb23[address] [place] [address]Dr.Tishemily SureshNEUT #10.2 103/ulCritically high1.4-6.[address] [facility] HospitalComment on above:Performed By: #### CBC ####[facility] Svmqhbkvop6670[address] [place], [place] [address]Dr.Devin Suresh Neutrophils/100 WBC (Bld)77.1 %Critically high43.0-75.0The [facility] Comment on above:Performed By: #### CBC ####[facility] Anaurhjelc8736[address] [place], [place] [address]Dr.Devin SureshPlatelet mean volume (Bld) [Entitic vol]9.4 fLCritically low9.5-13.5The St. [facility] HospitalComment on above: Performed By: #### CBC ####[facility] Numfpzrlqx374[address] [place], [place] [address]Dr.Devin SureshPLT382 103/dmAeesul407-211Nco St[facility] HospitalComment on above:Performed By: #### CBC ####[facility] Vtrxnchcjt725[address] [place], [place] [address]Dr.Devin SureshRBC3.85 106/ul Critically low4.20-5.40The St. Vincent HospitalComment on above:Performed By: #### CBC ####[facility] Dajzcjhoow[address] [place], [place] [address]Dr. Devin SureshWBC13.2 103/ulCritically high4.0-11.0The [facility] HospitalComment on above:Performed By: #### CBC ####[facility] Chipeifhxh45[address] [place], [place] [address]Dr.Devin SureshCT HEAD WO CONon 11-71-8233WZ HEAD WO CONNormalLima Memorial HospitalCTA HEAD WO W CONon 02-04-5246ROC HEAD WO W CON NormalLima Memorial HospitalGLYCOHEMOGLOBIN A1Con 44-72-9610DND RECOMMENDATIONSEE Crystal Clinic Orthopedic CenterComment on above:Result Comment: ADA RECOMMENDED LIMIT 4.0 - 6.0 ADA THERAPEUTIC TARGET < 7.0 ACTION SUGGESTED > 7.0Performed By: #### A1C ####[facility] Hcaxfrxcwp[address] [place] [address]Dr.Devin ChangGlucose [Mass/Vol]249 mg/dLNormalThe St. Vincent HospitalComment on above:Performed By: #### A1C ####[facility] Decbcsbyql33[address] [place], [place] [address]Dr.Devin BmzthJaY1r (Bld) [Mass fraction]10.3 % Critically high4.5-6.2The St. Vincent HospitalComment on above:Performed By: #### A1C ####[facility] Aupzxovunq8023[address] [place], [place] [address]Dr. Tishemily ChangPOINT OF CARE GLUCOSEon 48-20-8324Bsmnoha [Mass/Vol]276 mg/dL Critically krse67-372Ets St. [facility] HospitalComment on above:Performed By: #### POCGLUC ####[facility] Ozvqdpzemm9[address] [place], [place] [address]Dr. Devin ChangGlucose [Mass/Vol]209 mg/dLCritically sxyh45-658Fmk St. [facility] HospitalComment on above:Performed By: #### POCGLUC ####[facility] Dwcexkzasv7[address] [place], [place] [address]Dr. Devin ChangGlucose [Mass/Vol]286 mg/dLCritically adfz40-494Xwk St. [facility] HospitalComment on above: Performed By: #### POCGLUC ####[facility] Vkvwfuhdfa88[address] [place], [place] [address]Dr. Devin ChangPROF 14(COMP METB)on 72-86-8292Kqxnwrg [Mass/Vol]2.9 g/dLCritically low3.4-5.0The St. [facility] HospitalComment on above: Performed By: #### CMP ####[facility] Qclssqjayy6434[address] [place], [place] [address]Dr.Devin ChangAlbumin/Globulin [Mass ratio]0.9 {ratio} NormalThe St. Vincent HospitalComment on above:Performed By: #### CMP ####[facility] Ykxvmidlzn74[address] [place], [place] [address]Iq.Yilan ChangALP [Catalytic activity/Vol]109 U/BYqawta77-217Kwr St. [facility] HospitalComment on above:Performed By: #### CMP ####[facility] Uuqokfxdjh[address] [place] [address]Dr.Yilan ChangALT [Catalytic activity/Vol]13 U/L Critically qem11-82Mgy [facility] HospitalComment on above:Performed By: #### CMP ####[facility] Gcnfnzlvzl05[address] [place] [address]Dr. Yilan ChangAnion gap [Moles/Vol]12.1 mmol/LNormalThe St. Vincent HospitalComment on above:Performed By: #### CMP ####[facility] Nmzgrkxxvs0[address] [place] [address]Dr.Yilan ChangAST [Catalytic activity/Vol]6 U/L Critically oul51-12Omy St. [facility] HospitalComment on above:Performed By: #### CMP ####[facility] Ikibsbbzdq[address] [place], [place] [address]Dr. Yilan ChangBilirubin [Mass/Vol]0.4 mg/dLNormal0.2-1.0The [facility] Comment on above:Performed By: #### CMP ####[facility] Vmflfjeeud8[address] [place] [address]Dr.Yilan ChangCalcium [Mass/Vol]8.6 mg/dL Normal8.5-10.1The [facility]. [facility] HospitalComment on above:Performed By: #### CMP ####[facility] Hfzqvhfpll6168 [place] [address]Dr. Yilan ChangChloride [Moles/Vol]105 mmol/YWnvxpk87-436Anq [facility] Comment on above:Performed By: #### CMP ####[facility] Arrvufadkw0974 [place] [address]Dr.Yilan ChangCO2 [Moles/Vol]25.4 mmol/L Fjvabx67.0-32.0The [facility] HospitalComment on above:Performed By: #### CMP ####[facility] Jtygftbsxs39[address] [place] [address]Dr. Yilan ChangCreatinine [Mass/Vol]1.38 mg/dLCritically high0.55-1.02The [facility] HospitalComment on above:Performed By: #### CMP ####[facility] Etnmzbdnzo[address] [place], [place] [address]Dr.Yilan ChangEGFR-AF CKFNVKOY37 mL/min/1.15r0Mgwrhdkiyh low>=60The St. [facility] HospitalComment on above: Performed By: #### CMP ####[facility] Ocunbmniop[address] [place], [place] [address]Dr.Yilan ChangEGFR-NON AF RJJZTGHO56 mL/min/1.73m2 Critically low>=60The [facility] HospitalComment on above:Performed By: #### CMP ####[facility] Cvylqqhwtc[address] [place], [place] [address]Dr. Yilan ChangGlobulin (S) [Mass/Vol]3.3 g/dLNormalThe St. [facility] HospitalComment on above:Performed By: #### CMP ####[facility] Ebaygazamh30[address] [place], [place] [address]Dr.Yilan ChangGlucose [Mass/Vol]258 mg/dLCritically nhkd80-420Arq [facility] HospitalComment on above:Performed By: #### CMP ####[facility] Ogwpzupjla9099[address] [place], [place] [address]Dr. Yilan ChangPotassium [Moles/Vol]4.5 mmol/LNormal3.5-5.1The [facility] Comment on above:Performed By: #### CMP ####[facility] Cptsmgzwfz547[address] [place], [place] [address]Dr.Yilan ChangProtein [Mass/Vol]6.2 g/dL Critically low6.4-8.2The [facility] HospitalComment on above:Performed By: #### CMP ####[facility] Ljffnosmap950[address] [place], [place] [address]Dr. Yilan ChangSodium [Moles/Vol]138 mmol/CLaripr480-274Wuy [facility] HospitalComment on above:Performed By: #### CMP ####[facility] Agkzfdqtre[address] [place] [address]Dr.Devin ChangUrea nitrogen [Mass/Vol]22.0 mg/dL Critically high7.0-18.0[facility] HospitalComment on above:Performed By: #### CMP ####[facility] Ttqpydxstx7[address] [place] [address]Dr. Tishlan ChangUrea nitrogen/Creatinine [Mass ratio]15.9 mg/mgNormalThe St. [facility] HospitalComment on above:Performed By: #### CMP ####[facility] Vbdrrnkwjs[address] [place], [place] [address]Dr.Devin SureshCARDIAC LAURA 3-6on 90-06-1353BC [Catalytic activity/Vol]46 U/KGnrkhh50-751Req [facility] on above:Performed By: #### CMREP ####[facility] Bjnojkjacu175[address] [place], [place] [address]Dr. Devin KerwinCK.MB [Mass/Vol]0.87 ng/mLNormal<=3.60The [facility] on above:Performed By: #### CMREP ####[facility] Lsaqbdssqy[address] [place], [place] [address]Dr. Devin SureshHSTROP8.1 pg/mLNormal4.0-51.3The [facility] Comment on above:Result Comment: CUT-OFF POINTS HAVE BEEN ESTABLISHED BASED ON THE FOURTH UNIVERSAL DEFINITIONS OF MYOCARDIALINFARCTION. THE UPPER REFERENCE LIMIT (URL) OF TROPONIN, DEFINED THE 99TH PERCENTILE OFcTnI DISTRIBUTION IN A REFERENCE POPULATION, HAS BEEN CONFIRMED THE DECISION THRESHOLDFOR [place] DIAGNO SIS.Performed By: #### CMREP ####[facility] Qehtutexip[address] [place], [place] [address]Dr. Devin ChangCK [Catalytic activity/Vol]51 U/LNormal 26-192The [facility] HospitalComsheridan community hospital on above:Performed By: #### CMREP ####[facility] Rjicsmdnsv16[address] [place], [place] [address]Dr. Tishemily KerwinCK.MB [Mass/Vol]0.85 ng/mLNormal<=3.60The [facility] HospitalComment on above:Performed By: #### CMREP ####[facility] Ybejxubvei26[address] [place], [place] [address]Dr. Yilan EcevpOPKOUR00.8 pg/mLNormal4.0-51.3The [facility] HospitalComment on above:Result Comment: CUT-OFF POINTS HAVE BEEN ESTABLISHED BASED ON THE FOURTH UNIVERSAL DEFINITIONS OF MYOCARDIALINFARCTION. THE UPPER REFERENCE LIMIT (URL) OF TROPONIN, DEFINED THE 99TH PERCENTILE OFcT nI DISTRIBUTION IN A REFERENCE POPULATION, HAS BEEN CONFIRMED THE DECISION THRESHOLDFOR [place] DIAGNOSIS.Performed By: #### CMREP ####[facility] Qkkbvssbts[address] [place], [place] [address]Dr. Devin ChangCBC AUTO DIFF on 71-94-8965HFGI #0.1 103/ulNormal0.0-0.1The [facility] HospitalComment on above: Performed By: #### CBC ####[facility] Dyyygcqkpc05[address] [place], [place] [address]Dr.Devin ChangBasophils/100 WBC (Bld)0.8 %Normal 0.2-2.0The [facility] HospitalComment on above:Performed By: #### CBC ####[facility] Noyvzuaaig[address] [place], [place] [address]Dr.Tishlan ChangEO # 0.2 103/ulNormal0.0-0.7The [facility] HospitalComment on above:Performed By: #### CBC ####[facility] Xwyjgmspix86[address] [place], [place] [address]Dr. Devin ChangEosinophils/100 WBC (Bld)2.0 %Normal0.9-7.0The [facility] Comment on above:Performed By: #### CBC ####[facility] Trnpuuyvvi0790[address] [place], [place] [address]Dr.Devin ChangErythrocyte distribution width (RBC) [Ratio]13.1 %Eysxln62.0-15.0The [facility] HospitalComment on above: Performed By: #### CBC ####[facility] Tetmwdryhp[address] [place], [place] [address]Dr.Yilan ChangHematocrit (Bld) [Volume fraction]35.0 % Critically low36.0-48.0The [facility] HospitalComment on above:Performed By: #### CBC ####[facility] Cjhdxtpttg24[address] [place], [place] [address]Dr. Devin SureshHemoglobin (Bld) [Mass/Vol]11.9 g/dLCritically low12.0-16.0The [facility]ho[facility] HospitalComment on above:Performed By: #### CBC ####[facility] Hskdhbrnoj[address] [place], [place] [address]Dr.Devin ChangIG #0.05 10e3/ulCritically high0.00-0.03The [facility] HospitalComment on above:Performed By: #### CBC ####[facility] Akvgyktvgm5[address] [place], [place] [address]Dr.Tishemily ChangIG %0.5 %Normal0.0-0.5The [facility]. [facility] HospitalComment on above: Performed By: #### CBC ####[facility] Jpxvrsknvm37[address] [place], [place] [address]Dr.Devin ChangLYMPH #3.4 103/ulNormal1.2-3.8The [facility] HospitalComment on above:Performed By: #### CBC ####[facility] Lcxmiyhqpb13[address] [place], [place] [address]Dr.Devin SureshLymphocytes/100 WBC (Bld)34.2 %Fbvvzq63.5-60.0The [facility] HospitalComment on above:Performed By: #### CBC ####[facility] [address]addsjcqqr[address] [place], [place] [address]Dr.Devin SureshMANUAL DIFF REQNONormalThe St. Vincent HospitalComment on above:Performed By: #### CBC ####[facility] N[address] [place], [place] [address]Dr.Devin SureshMCH (RBC) [Entitic mass]30.6 pgNormal 26.7-34.0The [facility] HospitalComment on above:Performed By: #### CBC ####[facility] M[address] [place], [place] [address]Dr. Devin SureshMCHC (RBC) [Mass/Vol]34.0 g/xHUoynor28.9-35.2The [facility] Comment on above:Performed By: #### CBC ####[facility] [address] [place] [address]Dr.Devin SureshMCV (RBC) [Entitic vol]90.0 fL Fdbokx37.0-99.0The [facility] HospitalComment on above:Performed By: #### CBC ####[facility] [address] [place] [address]Dr. Devin ChangMONO #0.7 103/ulNormal0.3-0.8The St. [facility] HospitalComment on above: Performed By: #### CBC ####[facility] [address] [place] [address]Dr.Devin ChangMonocytes/100 WBC (Bld)6.6 %Normal 1.7-12.0The [facility] HospitalComment on above:Performed By: #### CBC ####[facility] [address] [place], [place] [address]Dr. Devin ChangNEUT #5.6 103/ulNormal1.4-6.5The [facility]. [facility] HospitalComment on above: Performed By: #### CBC ####[facility] [address] [place], [place] [address]Dr.Devin ChangNeutrophils/100 WBC (Bld)55.9 %Normal 43.0-75.0The [facility] HospitalComment on above:Performed By: #### CBC ####[facility] [address] [place] [address]Dr. Devin SureshPlatelet mean volume (Bld) [Entitic vol]9.1 fLCritically low9.5-13.[address] [facility] HospitalComment on above:Performed By: #### CBC ####[facility] [address] [place] [address]Dr.Tishlan FapxvXJV832 103/ohXrxkmw553-409Rsy St. Vincent HospitalComment on above:Performed By: #### CBC ####[facility] [address] [place], [place] [address]Rh. Devin SureshRBC3.89 106/ulCritically low4.20-5.40The [facility] on above:Performed By: #### CBC ####[facility] Nnq[address] [place], [place] [address]Vg.Devin SureshWBC10.0 103/ulNormal4.0-11.0The St. Vincent HospitalComment on above:Performed By: #### CBC ####[facility] Kpqkntfwdu9[address] [place], [place] [address]Qw.Devin ChangCT LSPINE WO CONon 29-16-2863DJ LSPINE WO CONNormalLima Memorial HospitalCovid-19 PCR (CVDTBH) on 93-31-3629GEDN-CoV-2 (COVID-19) RNA EBONIE+probe Ql (Unsp spec)Not detected NormalNOT DETECTEDThe St. [facility] HospitalComsheridan [facility] hospital on above:Result Comment: When diagnostic testing [...] for this test is supported by the Cool of Health and Human Service's declaration that [...] no longer be used).Performed By: #### CVDTBH ####[facility] Aubtnhhecn[address] [place], [place] [address]Zx. Devin SureshLIPID PROFILEon 93-18-2108JDLU-HDL RATIO NORMSEE BELOWNormal The [facility] on above:Result Comment: 3.3 - 4.4 LOW RISK 4.4 - 7.1 AVERAGE RISK 7.1 - 11.0 MODERATE RISK >11.0 HIGH RISKPerformed By: #### LIPID, TSH ####[facility] Qqtryixdza268[address] [place], [place] [address]Dr. Yilan ChangCholesterol [Mass/Vol]231 mg/dLCritically high<=200The [facility] on above:Performed By: #### LIPID, TSH ####[facility] Urfmqcaqkx598[address] [place], [place] [address]Dr. Yilan Suresh Cholesterol in HDL [Mass/Vol]52 mg/kXTrqlig20-74KffLima Memorial HospitalComsheridan community hospital on above:Performed By: #### LIPID, TSH ####[facility] Lxirwbcnls[address] [place], [place] [address]Dr. Yilan ChangCholesterol in LDL [Mass/Vol]156.6 mg/dLCleveland Clinic South Pointe HospitalComsheridan community hospital on above:Performed By: #### LIPID, TSH ####[facility] Oypjbntpve55[address] [place], [place] [address]Dr. Yilan ChangCholesterol.total/Cholesterol in HDL [Mass ratio]4.4 {ratio}NormalThe St. [facility] HospitalComsheridan [facility] hospital on above:Performed By: #### LIPID, TSH ####[facility] Lmfkvhfiwe76[address] [place], [place] [address]Dr. Yilan ChangHDL NORMAL> or = 60 mg/dl - LOW CARDIOVASCULAR RISK <40 mg/dl - HIGH CARDIOVASCULAR RISKCleveland Clinic South Pointe HospitalComsheridan community hospital on above:Performed By: #### LIPID, TSH ####[facility] Juhbffhcky[address] [place], [place] [address]Dr. Yilan ChangLDL CALC NORMALSEE BELOWCleveland Clinic South Pointe HospitalComsheridan community hospital on above: Result Comment: <100 mg/dl OPTIMAL 100 - 129 mg/dl NEAR OR ABOVE OPTIMAL 130 - 159 mg/dl BORDERLINE HIGH 160 - 189 mg/dl HIGH >190 mg/dl VERY HIGHPerformed By: #### LIPID, TSH ####[facility] Vnlgjemafs05[address] [place], [place] [address]Dr. Yilan ChangTriglyceride [Mass/Vol]112 mg/dLNormal<=150Lima Memorial HospitalComment on above:Performed By: #### LIPID, TSH ####[facility] Uyotuhfchl[address] [place], [place] [address]Dr. Yilan ChangVLDL CALC22.4 mg/dLNormalThe St. [facility] HospitalComment on above:Performed By: #### LIPID, TSH ####[facility] Esrucfoqss3739[address] [place], [place] [address]Dr. Yilan ChangPOINT OF CARE GLUCOSEon 46-67-4088Bkcxsdn [Mass/Vol]295 mg/dL Critically ptyc75-672VpuLima Memorial HospitalComment on above:Performed By: #### POCGLUC ####[facility] Mfhpwsmndj8340[address] [place], [place] [address]Dr. Yilan ChangGlucose [Mass/Vol]157 mg/dLCritically qkcd04-177KztLima Memorial HospitalComment on above:Performed By: #### POCGLUC ####[facility] Skkgwsavxc7744[address] [place], [place] [address]Dr. Yilan ChangGlucose [Mass/Vol]172 mg/dLCritically hytf07-668JkxLima Memorial HospitalComment on above: Performed By: #### POCGLUC ####[facility] Hpjjmfrbce3759[address] [place], [place] [address]Dr. Yilan ChangGlucose [Mass/Vol]178 mg/dLCritically ceoj73-339AviLima Memorial HospitalComment on above:Performed By: #### POCGLUC ####[facility] Jzaovfbemt917[address] [place], [place] [address]Dr. Yilan ChangGlucose [Mass/Vol]241 mg/dLCritically lrqu73-890MooLima Memorial Hospital Comment on above:Performed By: #### POCGLUC ####[facility] Fsjgidmudq9510[address] [place], [place] [address]Dr. Yilan ChangPROF 14(COMP METB)on 16-67-9776Gdffjuz [Mass/Vol]3.1 g/dLCritically low3.4-5.0[facility] Comment on above:Performed By: #### CMP ####[facility] [address]enmsr[address] [place] [address]Dr.Yilan ChangAlbumin/Globulin [Mass ratio] 0.9 {ratio}NormalThe St. Vincent HospitalComment on above:Performed By: #### CMP ####[facility] Nypvvkcyxz906[address] [place], [place] [address]Dr. Yilan ChangALP [Catalytic activity/Vol]114 U/HPjxldi72-424Xlo [facility] Comment on above:Performed By: #### CMP ####[facility] Jtmquaiuxh2722[address] [place], [place] [address]Dr.Yilan ChangALT [Catalytic activity/Vol]9 U/LCritically edi51-96Hcn St. [facility] HospitalComment on above:Performed By: #### CMP ####[facility] Ebwmmzvncy097[address] [place], [place] [address]Dr. Yilan ChangAnion gap [Moles/Vol]12.3 mmol/LNormalThe St. Vincent HospitalComment on above:Performed By: #### CMP ####[facility] Naxdgzibsn527[address] [place], [place] [address]Dr.Yilan ChangAST [Catalytic activity/Vol]7 U/L Critically rvo43-70Qai St. [facility] HospitalComment on above:Performed By: #### CMP ####[facility] Qmmrbefxhg1848[address] [place], [place] [address]Dr. Yilan ChangBilirubin [Mass/Vol]0.4 mg/dLNormal0.2-1.0The [facility] Comment on above:Performed By: #### CMP ####[facility] Bkdjcngodr807[address] [place], [place] [address]Dr.Yilan ChangCalcium [Mass/Vol]8.3 mg/dL Critically low8.5-10.1The [facility] HospitalComment on above:Performed By: #### CMP ####[facility] Mlckynosrd4909[address] [place], [place] [address]Dr. Yilan ChangChloride [Moles/Vol]103 mmol/WMwfpnm10-135Dka [facility] Comment on above:Performed By: #### CMP ####[facility] Ghckaxtxli3748[address] [place], [place] [address]Dr.Yilan ChangCO2 [Moles/Vol]27.2 mmol/L Hbtqja56.0-32.0Lima Memorial HospitalComment on above:Performed By: #### CMP ####[facility] Qofhvkjzcw5025[address] [place], [place] [address]Dr. Yilan ChangCreatinine [Mass/Vol]0.95 mg/dLNormal0.55-1.02[facility] Comment on above:Performed By: #### CMP ####[facility] Hfjzipvfqr9488[address] [place], [place] [address]Dr.Yilan ChangEGFR-AF NIUEAN>60Normal>=[address] [facility] HospitalComment on above:Performed By: #### CMP ####[facility] Jvyoezmtqf718[address] [place], [place] [address]Dr.Yilan ChangEGFR- NON AF NIUEAN>60Normal>=60L[facility] HospitalComment on above:Performed By: #### CMP ####[facility] Kaepwterjj875[address] [place], [place] [address]Dr.Yilan ChangGlobulin (S) [Mass/Vol]3.3 g/dLNormalThAvita Health System [facility]cy[facility] Comment on above:Performed By: #### CMP ####[facility] Svclrwoxed6260[address] [place], [place] [address]Dr.Yilan ChangGlucose [Mass/Vol]186 mg/dL Critically mand05-463Rop St. [facility] HospitalComment on above:Performed By: #### CMP ####[facility] Ppjzxwkyul5809[address] [place], [place] [address]Dr. Yilan ChangPotassium [Moles/Vol]3.5 mmol/LNormal3.5-5.1The [facility] Comment on above:Performed By: #### CMP ####[facility] Ytgzlhieui267[address] [place], [place] [address]Dr.Yilan ChangProtein [Mass/Vol]6.4 g/dL Normal6.4-8.2Lima Memorial HospitalComment on above:Performed By: #### CMP ####[facility] Harybtismi0434[address] [place], [place] [address]Dr. Yilan ChangSodium [Moles/Vol]139 mmol/UGduvge942-929Niq [facility] Hospitalment on above:Performed By: #### CMP ####[facility] Nyoxvttqci[address] [place] [address]Dr.Devin ChangUrea nitrogen [Mass/Vol]22.0 mg/dL Critically high7.0-18.0The St. [facility] HospitalComment on above:Performed By: #### CMP ####[facility] Agndvkkniw0712[address] [place], [place] [address]Dr. Tishlan ChangUrea nitrogen/Creatinine [Mass ratio]23.2 mg/mgNormalThe St. [facility] HospitalComment on above:Performed By: #### CMP ####[facility] Moukeknwqd615[address] [place], [place] [address]Dr.Devin ChangTSHon 53-27-5255SJX6.081 uIU/mLCritically high0.358-3.740The [facility] HospitalComsheridan [facility] hospital on above:Performed By: #### LIPID, TSH ####[facility] Yyhcyfwwtg15[address] [place], [place] [address]Dr. Devin SureshCARDIAC LAURA ADMITon 42-29-2070KI [Catalytic activity/Vol]58 U/WBeddhd96-404Bay [facility] on above: Performed By: #### CMADM, BMP ####[facility] Ricswflwhe564[address] [place], [place] [address]Dr. Devin SureshCK.MB [Mass/Vol]0.80 ng/mLNormal<=3.[address] [facility] on above:Performed By: #### CMADM, BMP ####[facility] Mbgaqnwkuk994[address] [place], [place] [address]Dr. Devin Suresh HSTROP7.9 pg/mLNormal4.0-51.3The [facility] HospitalComsheridan [facility] hospital on above:Result Comment: CUT-OFF POINTS HAVE BEEN ESTABLISHED BASED ON THE FOURTH UNIVERSAL DEFINITIONS OF MYOCARDIALINFARCTION. THE UPPER REFERENCE LIMIT (URL) OF TROPONIN, DEFINED THE 99TH PERCENTILE OFcTnI DISTRIBUTION IN A REFERENCE POPULATION, HAS BEEN CONFIRMED THE DECISION THRESHOLDFOR [place] DIAGNOSIS. Performed By: #### CMADM, BMP ####[facility] Drfnmtmldx0[address] [place] [address]Dr. Yilan WdpwfJKM07 ng/mLNormal9-82The St. [facility] HospitalComment on above:Performed By: #### CMADM, BMP ####[facility] Fyafoxplyv020[address] [place] [address]Dr. Yilan ChangCBC AUTO DIFF on 90-96-0624WYEE #0.1 103/ulNormal0.0-0.1The [facility] HospitalComment on above: Performed By: #### CBC ####[facility] Owazcpsuqk0467[address] [place], [place] [address]Dr.Yilan ChangBasophils/100 WBC (Bld)0.8 %Normal 0.2-2.0The [facility] HospitalComment on above:Performed By: #### CBC ####[facility] Svjkzvluaa1901[address] [place], [place] [address]Dr.Yilan ChangEO # 0.1 103/ulNormal0.0-0.7The [facility] HospitalComment on above:Performed By: #### CBC ####[facility] Hodsiqwkyk6895[address] [place], [place] [address]Dr. Yilan ChangEosinophils/100 WBC (Bld)1.1 %Normal0.9-7.0The [facility] Comment on above:Performed By: #### CBC ####[facility] Nazhhamesb0409[address] [place], [place] [address]Dr.Yilan ChangErythrocyte distribution width (RBC) [Ratio]12.9 %Iadkjs80.0-15.0The [facility] HospitalComment on above: Performed By: #### CBC ####[facility] Yyopcckbcw6369[address] [place], [place] [address]Dr.Tishlan ChangHematocrit (Bld) [Volume fraction]37.6 % Cmttmj84.0-48.0The [facility] HospitalComment on above:Performed By: #### CBC ####[facility] Xdqylwqmtz215[address] [place], [place] [address]Dr. Yilan ChangHemoglobin (Bld) [Mass/Vol]12.9 g/jFSqiliq06.0-16.0The [facility] HospitalComment on above:Performed By: #### CBC ####[facility] Dalcuxrmfb559[address] [place], [place] [address]DrGonzalo SureshIG #0.06 10e3/ulCritically high0.00-0.03The [facility]ho[facility] HospitalComment on above:Performed By: #### CBC ####[facility] Dfnwvnmugm7669[address] [place], [place] [address]Dr.Devin Suresh %0.6 %Critically high0.0-0.5The [facility] HospitalComment on above:Performed By: #### CBC ####[facility] Kzknnnhzfx2460[address] [place], [place] [address]Dr.Devin SureshBON SECOU[facility] #2.4 103/ulNormal1.2-3.8The [facility] HospitalComment on above:Performed By: #### CBC ####[facility] Hkhxktaoha912[address] [place], [place] [address]Dr.Devin SureshE.J. Noble Hospitalhocytes/100 WBC (Bld)22.2 %Ohptyf33.5-60.0The [facility] HospitalComment on above:Performed By: #### CBC ####[facility] Wbpjedmikx955[address] [place], [place] [address]Dr.Deivn SureshLUTHERAN H[facility] DIFF REQNONormalThe St. [facility] HospitalComment on above:Performed By: #### CBC ####[facility] Exinhczclu0101[address] [place], [place] [address]Dr.Devin SureshUN[facility] (RBC) [Entitic mass]30.7 pgNormal 26.7-34.0The [facility] HospitalComment on above:Performed By: #### CBC ####[facility] Xaxfbihlnm7570[address] [place], [place] [address]DrMaris SureshNYU [facility] (RBC) [Mass/Vol]34.3 g/zLFhketl77.9-35.2The [facility] Comment on above:Performed By: #### CBC ####[facility] Igfmjgsvtd425[address] [place], [place] [address]Dr.Devin SureshMCV (RBC) [Entitic vol]89.5 fL Djolye33.0-99.0The [facility] Hospitalment on above:Performed By: #### CBC ####[facility] Lhyzxjgoul805[address] [place], [place] [address]Dr. Devin SureshMONO #0.6 103/ulNormal0.3-0.8The [facility] HospitalComment on above: Performed By: #### CBC ####[facility] Sjejentckd454[address] [place], [place] [address]Dr.Devin SureshMonocytes/100 WBC (Bld)5.3 %Normal 1.7-12.0The [facility] HospitalComment on above:Performed By: #### CBC ####[facility] Crhwqtewrg9870[address] [place], [place] [address]Dr. Devin SureshNEUT #7.4 103/ulCritically high1.4-6.5The [facility] HospitalComment on above:Performed By: #### CBC ####[facility] Lkbjmmjtad77[address] [place], [place] [address]Dr.Devin SureshNeutrophils/100 WBC (Bld)70.0 %Normal 43.0-75.0The [facility] HospitalComment on above:Performed By: #### CBC ####[facility] Jwhwxbvpbx004[address] [place], [place] [address]Dr. Devin SureshPlatelet mean volume (Bld) [Entitic vol]9.6 fLNormal9.5-13.5The [facility] HospitalComment on above:Performed By: #### CBC ####[facility] Nqekmhrvlg098[address] [place], [place] [address]Dr.Devin SureshPLT382 103/ul Itmepb639-370Lwo St[facility] HospitalComsheridan community hospital on above:Performed By: #### CBC ####[facility] Pubztuazjv5848[address] [place], [place] [address]Dr. Devin ChangRBC4.20 106/ulNormal4.20-5.40The [facility] HospitalComment on above: Performed By: #### CBC ####[facility] Qjjpouvsqt[address] [place] [address]Dr.Devin GrhaeSDW18.6 103/ulNormal4.0-11.0The [facility] HospitalComment on above:Performed By: #### CBC ####[facility] Qfcxfgcnmx3780[address] [place], [place] [address]Dr.Tishemily ChangCT STROKE HEAD WOon 19-82-3815AB STROKE HEAD WONormalThe St. [facility] HospitalPOINT OF CARE GLUCOSE on 02-51-3578Zwzsftu [Mass/Vol]453 mg/dLCritically zmrf69-101Ymd St. [facility] HospitalComment on above:Performed By: #### POCGLUC ####[facility] Nvjxmqzggj155[address] [place], [place] [address]Dr. Tishemily ChangPROF CHEM 8 (BAS METB)on 69-68-8197Afgyk gap [Moles/Vol]11.1 mmol/LNormalThe St. [facility] HospitalComment on above:Performed By: #### CMADM, BMP ####[facility] Xdmtwmtram813[address] [place], [place] [address]Dr. Devin ChangCalcium [Mass/Vol]8.6 mg/dLNormal8.5-10.1The [facility] HospitalComsheridan community hospital on above:Performed By: #### CMADM, BMP ####[facility] Vjcmrcfpmp110[address] [place], [place] [address]Dr. Devin ChangChloride [Moles/Vol]98 mmol/LNormal 98-107The [facility] HospitalComsheridan community hospital on above:Performed By: #### CMADM, BMP ####[facility] Juzduxdnlr[address] [place], [place] [address]Dr. Devin ChangCO2 [Moles/Vol]29.0 mmol/VGbtkwe35.0-32.0[facility] HospitalComsheridan community hospital on above:Performed By: #### CMADM, BMP ####[facility] Rzuuezasaq920[address] [place], [place] [address]Dr. Tishemily ChangCreatinine [Mass/Vol]1.16 mg/dLCritically high0.55-1.02The [facility] HospitalComment on above:Performed By: #### CMADM, BMP ####[facility] Vqsjxsgatx9[address] [place] [address]Dr. Yilan ChangEGFR-AF NIUEAN>60Normal>=60The [facility] Comment on above:Performed By: #### HOWARD, BMP ####[facility] Sawvgabxgd4[address] [place] [address]Dr. Yilan ChangEGFR-NON AF WRXKVJGQ79 mL/min/1.77r8Medepcqztk low>=60The [facility] HospitalComment on above: Performed By: #### HOWARD, BMP ####[facility] Owaznxxmhb01[address] [place], [place] [address]Dr. Yilan ChangGlucose [Mass/Vol]428 mg/dLCritically fsjw22-068Iju St[facility] HospitalComment on above:Performed By: #### HOWARD, BMP ####[facility] Covzlaksxi4960[address] [place], [place] [address]Dr. Yilan ChangPotassium [Moles/Vol]4.1 mmol/LNormal3.5-5.1The [facility] Comment on above:Performed By: #### HOWARD, BMP ####[facility] Rcqpxlgrne2110[address] [place], [place] [address]Dr. Yilan ChangSodium [Moles/Vol]134 mmol/LCritically iya299-167Mqc [facility] HospitalComment on above: Performed By: #### OHWARD, BMP ####[facility] Tckqhoknjo8050[address] [place], [place] [address]Dr. Yilan ChangUrea nitrogen [Mass/Vol]23.0 mg/dL Critically high7.0-18.0The [facility] HospitalComment on above:Performed By: #### HOWARD, BMP ####[facility] Vhjwemghrc82[address] [place], [place] [address]Dr. Yilan ChangUrea nitrogen/Creatinine [Mass ratio]19.8 mg/mgNormalThe St. [facility] HospitalComment on above:Performed By: #### CMADM, BMP ####[facility] Wxwkezdiyx710[address] [place], [place] [address]Dr. Yilan ChangXR CHEST 1 Von 89-94-8859DP CHEST 1 VNormalThe Dayhoit HospitalCHEMISTRYOrdered By: SYSTEM SYSTEM on 86-23-2308Wmwsxbrd I.cardiac [Mass/Vol]4.30 pg/mLLow10.10 - 27.10 pg/mLFTMC RemisolAnion gap [Moles/Vol]13 mmol/LNormal6 - 16 mEq/LFTMC RemisolCalcium [Mass/Vol]9.2 mg/dLNormal8.9 - 11.1 mg/dLFTMC RemisolChloride [Moles/Vol]97 mmol/PQon390 - 111 mmol/LFTMC RemisolCO2 [Moles/Vol]26 mmol/L Dnbtld77 - 31 mmol/LFTMC RemisolCreatinine [Mass/Vol]0.9 mg/dLNormal0.5 - 1.3 mg/dLFTMC RemisolGFR/1.73 sq M.predicted among blacks MDRD (S/P/Bld) [Vol rate/Area]mL/min/1.73 t6Zpqsld>=59mL/min/1.73 m2[facility] Chem SGFR/1.73 sq M.predicted among non-blacks MDRD (S/P/Bld) [Vol rate/Area]mL/min/1.73 z7Bkkryn >=59mL/min/1.73 m2[facility] Chem SGlucose [Mass/Vol]310 mg/dRMxjy10 - 199 mg/dLFTMC RemisolPotassium [Moles/Vol]3.5 mmol/LNormal3.5 - 5.3 mmol/LFTMC RemisolSodium [Moles/Vol]132 mmol/IQny254 - 145 mmol/LFTMC RemisolUrea nitrogen [Mass/Vol]16 mg/dLNormal5 - 21 mg/dLFTMC RemisolUrea nitrogen/Creatinine [Mass ratio]18 mg/mg Vdyyzo04 - 20[facility] RemisolValproate [Moles/Vol]microgram/mLLow50 - 99 mcg/mLFTMC RemisolComment on above:Result Comment: Result verified by dilutionCHEMISTRY Ordered By: Sharla Villagomez on 95-52-6487Hqlzcnma I.cardiac [Mass/Vol]5.90 pg/mLLow10.10 - 27.10 pg/mLFTMC RemisolHEMATOLOGYOrdered By: SYSTEM SYSTEM on 85-43-2803Ylockngxs/100 WBC (Bld)1.1 %Normal0.0 - 2.0 %[facility] HemeAutoSS Basophils/Leukocytes Auto (Bld) [Pure # fraction]0.1 E9/LNormal0.0 - 0.2 E9/L [facility] HemeAutoSSEosinophils/100 WBC (Bld)1.9 %Normal0.0 - 8.0 %[facility] HemeAutoSS Eosinophils/Leukocytes Auto (Bld) [Pure # fraction]0.2 E9/LNormal0.0 - 0.5 E9/L [facility] HemeAutoSSLymphocytes/100 WBC (Bld)21.6 %Lzzoje03.0 - 50.0 %[facility] HemeAutoSS Lymphocytes/Leukocytes Auto (Bld) [Pure # fraction]2.0 E9/LNormal1.0 - 4.0 E9/L [facility] HemeAutoSSMonocytes/100 WBC (Bld)5.0 %Normal4.0 - 14.0 %[facility] HemeAutoSS Monocytes/Leukocytes Auto (Bld) [Pure # fraction]0.5 E9/LNormal0.2 - 1.0 E9/L [facility] HemeAutoSSNeutrophils/100 WBC (Bld)70.4 %Amyizi26.0 - 75.0 %[facility] HemeAutoSS Neutrophils/Leukocytes Auto (Bld) [Pure # fraction]6.7 E9/LNormal2.0 - 7.5 E9/L [facility] HemeAutoSSHEMATOLOGYOrdered By: Shannen Sosa on 59-76-8228Utwkrqbnjcr distribution width (RBC) [Ratio]13.4 %Kpamtf42.9 - 14.2 %[facility] HemeAutoSS Hematocrit (Bld) [Volume fraction]38.3 %Moyepb07.0 - 46.0 %[facility] HemeAutoSS Hemoglobin (Bld) [Mass/Vol]13.0 g/oONyqhhn00.0 - 16.0 gm/dLFTMC HemeAutoSSMCH (RBC) [Entitic mass]29.7 onSmtiuz68.0 - 34.0 pgFTMC HemeAutoSSMCHC (RBC) [Mass/Vol]33.9 g/dEEtfjsi26.4 - 36.0 gm/dLFTMC HemeAutoSSMCV (RBC) [Entitic vol] 87.6 dEGpaxsc40.0 - 100.0 fLOKLAHOMA HOSPITAL ASSOCIATION HemeAutoSSPlatelet mean volume (Bld) [Entitic vol]7.5 fLNormal6.4 - 10.8 fLOKLAHOMA HOSPITAL ASSOCIATION HemeAutoSSPlatelets (Bld) [#/Vol]343.0 E9/L Lxliqb883.0 - 500.0 E9/LFROGER MILLS [facility] HemeAutoSSRBC (Bld) [#/Vol]4.4 E12/LNormal4.3 - 5.9 E12/LFROGER MILLS [facility] HemeAutoSSWBC corrected for nucl RBC Auto (Bld) [#/Vol]9.5 E9/LNormal 4.0 - 11.0 E9/LFROGER MILLS [facility] HemeAutoSSCULTURE URINEon 33-40-1344FIRDYXB URINENormalThe St. [facility] HospitalComment on above:Performed By: #### URCX ####[facility] Aveghhdajz95[address] [place], [place] [address]Dr. Devin ChangACETONE SERUM on 06-22-3261ATBVTIFDczddqosJwpartXPBDNJPXYyh [facility]vue HospitalComment on above: Performed By: #### ACETON ####[facility] Zcdeleeckk25[address] [place], [place] [address]Dr. Devin ChangCBC AUTO DIFFon 43-31-1685IGDJ #0.0 103/ulNormal0.0-0.1[facility] HospitalComment on above:Performed By: #### CBC ####[facility] Kuescaryih867[address] [place], [place] [address]Dr. Tishlan ChangBasophils/100 WBC (Bld)0.4 %Normal0.2-2.0[facility] HospitalComment on above:Performed By: #### CBC ####[facility] Fccuaewyrv3267[address] [place], [place] [address]Dr.Yilan ChangEO #0.1 103/ulNormal0.0-0.7The St[facility] HospitalComment on above:Performed By: #### CBC ####[facility] Jglcmdtvvu770[address] [place], [place] [address]Dr.Yilan ChangEosinophils/100 WBC (Bld)1.0 %Normal0.9-7.0The [facility] HospitalComment on above:Performed By: #### CBC ####[facility] Jiwnqvcblt2770[address] [place], [place] [address]Dr.Devin ChangErythrocyte distribution width (RBC) [Ratio]12.3 %Normal 11.0-15.0The [facility] HospitalComment on above:Performed By: #### CBC ####[facility] Ilthuzxgmm816[address] [place], [place] [address]Dr. Devin ChangHematocrit (Bld) [Volume fraction]34.4 %Critically low36.0-48.0The [facility] HospitalComment on above:Performed By: #### CBC ####[facility] Tbsvohzyke9[address] [place], [place] [address]Dr.Devin ChangHemoglobin (Bld) [Mass/Vol]11.7 g/dLCritically low12.0-16.0The [facility] HospitalComment on above:Performed By: #### CBC ####[facility] Gyujfmuqkn[address] [place], [place] [address]Dr.Yiemily ChangIG #0.09 10e3/ulCritically high0.00-0.[address] [facility] HospitalComment on above:Performed By: #### CBC ####[facility] Vbjmlayesh9[address] [place], [place] [address]Dr.Devin ChangIG % 0.9 %Critically high0.0-0.5The [facility] HospitalComment on above:Performed By: #### CBC ####[facility] Iscegrubiu[address] [place], [place] [address]Dr.Tishemily ChangLYMPH #2.0 103/ulNormal1.2-3.8The [facility] HospitalComment on above:Performed By: #### CBC ####[facility] Cutdynzcpr4637[address] [place], [place] [address]Dr.Tishemily ChangLymphocytes/100 WBC (Bld)19.8 % Critically low20.5-60.0The [facility] HospitalComment on above:Performed By: #### CBC ####[facility] [address]indykv[address] [place] [address]Dr. Devin SureshMANUAL DIFF REQNONormalThe St. Vincent HospitalComment on above: Performed By: #### CBC ####[facility] [address] [place] [address]Dr.Devin SureshH (RBC) [Entitic mass]30.2 pgNormal 26.7-34.0[facility] HospitalComment on above:Performed By: #### CBC ####[facility] [id number] [place], [place] [address]Dr. Devin SurehsHC (RBC) [Mass/Vol]34.0 g/pICkbngl27.9-35.2[facility] Comment on above:Performed By: #### CBC ####[facility] [address] [place], [place] [address]Dr.Devin SureshMCV (RBC) [Entitic vol]88.9 fL Vfawuc95.0-99.0The [facility] HospitalComment on above:Performed By: #### CBC ####[facility] [id number] [address] [place], [place] [address]Dr. Devin SureshMONO #0.6 103/ulNormal0.3-0.8The [facility]. [facility] HospitalComment on above: Performed By: #### CBC ####[facility] Iuynsqdcsy[address] [place], [place] [address]Dr.Tishemily ChangMonocytes/100 WBC (Bld)6.4 %Normal 1.7-12.0The [facility]. [facility] HospitalComment on above:Performed By: #### CBC ####[facility] Bmjxqjevmj[address] [place], [place] [address]Dr. Tishemily SureshNEUT #7.0 103/ulCritically high1.4-6.5The [facility] HospitalComment on above:Performed By: #### CBC ####[facility] Axjqrazjrj987[address] [place], [place] [address]Dr.Devin KerwinNeutrophils/100 WBC (Bld)71.5 %Normal 43.0-75.0The [facility] HospitalComment on above:Performed By: #### CBC ####[facility] G[address]isenbe[address] [place] [address]Dr. Devin SureshPlatelet mean volume (Bld) [Entitic vol]8.4 fLCritically low9.5-13.[address] [facility] Hospitalment on above:Performed By: #### CBC ####[facility] Dcrztvapgz[address] [place] [address]Dr.Devin SureshPLT333 103/beEhgews945-563Gae St. [facility] HospitalComment on above:Performed By: #### CBC ####[facility] Mcfyiolill[address] [place] [address]Dr. Devin SureshRBC3.87 106/ulCritically low4.20-5.40The [facility] on above:Performed By: #### CBC ####[facility] Fbnunwtxzu4[address] [place] [address]Dr.Devin SureshWBC9.8 103/ulNormal4.0-11.0The [facility] on above:Performed By: #### CBC ####[facility] Qscbvmxxlf0219 [place] [address]Dr.Devin SureshCT HEAD WO CON on 30-41-9950WO HEAD WO CONNormalThe St. [facility] HospitalDEPAKENE/VALPROICon 68-73-1319PXYQLFLL<3.0Critically low50.0-100.0The [facility] on above:Performed By: #### CMP, VALP, HSTROPN ####[facility] Nudmuifuzu[address] [place] [address]Dr. Yilan ChangER URINE PROFILEon 02-18-2022 Bilirubin Ql (U)NegativeNormalNEGATIVEThe [facility] on above: Performed By: #### MERCEDEZ LOCKE ####[facility] Tqfinuijyk7103 [place], [place]Dr. Devin ChangClarity (U)CLEARNormalCLEARThe [facility] on above:Performed By: #### MERCEDEZ LOCKE ####[facility] Iideualcxw8626 [place], [place]Dr. Yilan ChangColor (U)LT. YELLOWNormalYELLOWLima Memorial HospitalComment on above:Performed By: #### SAMANTHA LOCKER ####[facility] Dhhbwkvqmv2035 [place], [place] [address]Oh. Yilan ChangERUAHDA micrscopic examination will be performed if indicated.NormalThe Dayhoit HospitalComment on above:Performed By: #### SAMANTHA LOCKER ####[facility] Zkdxfmwija0926 [place], [place]Dr. Yilan ChangGlucose Ql (U)>1000AbnormalNEGATIVEThe St. Vincent HospitalComment on above:Performed By: #### SAMANTHA LOCKER ####[facility] Sdprhsicuu3864 [place], [place]Dr. Yilan ChangHemoglobin Ql (U)SMALLAbnormal NEGATIVELima Memorial HospitalComment on above:Performed By: #### SAMANTHA LOCKER ####[facility] Nansfnegrt1110 [place], [place]Dr. Yilan ChangKetones Ql (U)40 mg/dlAbnormalNEGATIVELima Memorial HospitalComment on above:Performed By: #### SAMANTHA LOCKER ####[facility] Vymjpcefqg5008 [place], [place]Dr. Yilan ChangLEUKOCYTESTRACEAbnormalNEGATIVELima Memorial HospitalComment on above:Performed By: #### SAMANTHA LOCKER ####[facility] Cfjxyzxmft6477 [place], [place]Dr. Yilan Suresh Nitrite Ql (U)PositiveAbnormalNEGATIVELima Memorial HospitalComment on above: Performed By: #### SAMANTHA LOCKER ####[facility] Stfmnhooiw6[address] [place] [id number]. Yilan ChangpH (U)7.0 [pH]Normal5-9The [facility]. [facility] HospitalComment on above:Performed By: #### SAMANTHA LOCKER ####[facility] Rasqiixxlm[address] [place] [address]Dr. Devin SureshProtein (U) [Mass/Vol]100 mg/dLAbnormalNEGATIVE/ TRACEThe St. Vincent HospitalComment on above: Performed By: #### SAMANTHA LOCKER ####[facility] Cgkecdmlgm7[address] [place] [address]Dr. Devin SureshSPEC GRAVITY1.983Vwxyst0.005-<=1.025The St. [facility] HospitalComment on above:Performed By: #### CHUCKY ERUR ####[facility] Qqkegtwbwi4928 [place] [address]Dr. Devin SureshUR MICRO INDINDICATEDNormalThAvita Health System Bucyrus HospitalComment on above:Performed By: #### CHUCKY ERUR ####[facility] Lyotksjdsb0772 [address] Devin SureshUrobilinogen Qn (U)1.0 {Sheyla'U}/dLNormal0.2 - 1.0The [facility] HospitalComment on above:Performed By: #### SAMANTHA LOCKER ####[facility] Neijteafiv[address] [place], [place] [address]r. Devin Suresh LACTATE/LACTIC ACIDon 19-40-8184Xmdymfr [Moles/Vol]0.9 mmol/LNormal0.4-1.9Lima Memorial HospitalComment on above:Performed By: #### LACT ####[facility] Ezdgrlicpk230[address] [place], [place] [address]Dr. Devin SureshPOINT OF CARE GLUCOSEon 76-69-8316Ejmyreo [Mass/Vol]346 mg/dLCritically wteh01-577Wps St. [facility] HospitalComment on above:Performed By: #### POCGLUC ####[facility] Ysnzpmdemr[address] [place], [place] [address]Dr. Devin SureshGlucose [Mass/Vol]272 mg/dLCritically cdyf23-128Udg St. [facility] HospitalComment on above: Performed By: #### POCGLUC ####[facility] Qwtekhevdj4316 [place] [address]Dr. Yilan ChangPROF 14(COMP METB)on 14-06-4100Qrvyjvi [Mass/Vol]3.3 g/dLCritically low3.4-5.0The [facility] HospitalComment on above: Performed By: #### CMP, VALP, HSTROPN ####[facility] Ixtokuwkfh5617 [place] [address]Dr. Yilan ChangAlbumin/Globulin [Mass ratio]0.9 {ratio}NormalThe St. Vincent HospitalComment on above:Performed By: #### CMP, VALP, HSTROPN ####[facility] Parbhzswbr54[address] [place], [place] [address]Dr. Yilan ChangALP [Catalytic activity/Vol]130 U/LCritically qkup83-815Zat St. [facility] HospitalComment on above:Performed By: #### CMP, VALP, HSTROPN ####[facility] Xhyruyjjvo589[address] [place], [place] [address]Dr. Yilan ChangALT [Catalytic activity/Vol]22 U/AZegbqz06-99Eqy [facility] Comment on above:Performed By: #### CMP, VALP, HSTROPN ####[facility] Ponwkzfqho804[address] [place], [place] [address]Dr. Yilan ChangAnion gap [Moles/Vol]10.9 mmol/LNormalThe St. [facility] HospitalComment on above:Performed By: #### CMP, VALP, HSTROPN ####[facility] Szdwjyesrn611[address] [place], [place] [address]Dr. Yilan ChangAST [Catalytic activity/Vol]11 U/L Critically rqm21-78Mez St. [facility] HospitalComment on above:Performed By: #### CMP, VALP, HSTROPN ####[facility] Nvbvvvjjgi097[address] [place], [place] [address]Dr. Yilan ChangBilirubin [Mass/Vol]0.9 mg/dLNormal0.2-1.0The [facility] HospitalComment on above:Performed By: #### CMP, VALP, HSTROPN ####[facility] Lewscotfzp6[address] [place] [address]Dr. Devin Suresh Calcium [Mass/Vol]8.7 mg/dLNormal8.5-10.1The [facility] HospitalComment on above: Performed By: #### CMP, VALP, HSTROPN ####[facility] Nxmccysuid8219 [place] [address]Dr. Yilan ChangChloride [Moles/Vol]100 mmol/L Wliflp39-022Ymi [facility] HospitalComsheridan community hospital on above:Performed By: #### CMP, VALP, HSTROPN ####[facility] Fcninpbpwk33[address] [place], [place] [address]Dr. Yilan ChangCO2 [Moles/Vol]29.4 mmol/YCbjlqm07.0-32.0The [facility] HospitalComsheridan community hospital on above:Performed By: #### CMP, VALP, HSTROPN ####[facility] Wjrqhjvxhq84[address] [place], [place] [address]Dr. Yilan Suresh Creatinine [Mass/Vol]0.87 mg/dLNormal0.55-1.02The [facility] on above:Performed By: #### CMP, VALP, HSTROPN ####[facility] Rifhzdluoq433[address] [place], [place] [address]Dr. Yilan ChangEGFR-AF NIUEAN>60Normal >=60The [facility] on above:Performed By: #### CMP, VALP, HSTROPN ####[facility] Yrsgusaqsy7[address] [place], [place] [address]Dr. Yilan ChangEGFR-NON AF NIUEAN>60Normal>=60The [facility] on above:Performed By: #### CMP, VALP, HSTROPN ####[facility] Xeeiyvicsz097[address] [place], [place] [address]Dr. Yilan ChangGlobulin (S) [Mass/Vol]3.8 g/dLNormalThe St. [facility] HospitalComsheridan community hospital on above:Performed By: #### CMP, VALP, HSTROPN ####[facility] Xlhbmlooqu76[address] [place], [place] [address]Dr. Yilan ChangGlucose [Mass/Vol]282 mg/dLCritically juzm81-784Nlt St. [facility] HospitalComment on above:Performed By: #### CMP, VALP, HSTROPN ####[facility] Fbwmouydmc7[address] [place] [address]Dr. Devin Suresh Potassium [Moles/Vol]3.3 mmol/LCritically low3.5-5.1The [facility] HospitalComment on above:Performed By: #### CMP, VALP, HSTROPN ####[facility] Wjxqighowq8[address] [place] [address]Dr. Deivn SureshProtein [Mass/Vol]7.1 g/dLNormal6.4-8.2The [facility] HospitalComment on above:Performed By: #### CMP, VALP, HSTROPN ####[facility] Cuobhihmaq[address] [place] [address]Dr. Devin SureshSodium [Moles/Vol]137 mmol/LNormal 136-145The St. [facility] HospitalComment on above:Performed By: #### CMP, VALP, HSTROPN ####[facility] Bphtvwngko5[address] [place] [address]Dr. Devin ChangUrea nitrogen [Mass/Vol]14.0 mg/dLNormal7.0-18.0The [facility] HospitalComsheridan [facility] hospital on above:Performed By: #### CMP, VALP, HSTROPN ####[facility] Qhwdvxnaaq4623 [place] [address]Dr. Tishlan ChangUrea nitrogen/Creatinine [Mass ratio]16.1 mg/mgNormalThe St. [facility] HospitalComsheridan community hospital on above:Performed By: #### CMP, VALP, HSTROPN ####[facility] Lxivpgycst3[address] [place] [address]Dr. Devin ChangTROPONIN, HIGH SENSITIVITYon 55-26-0676FMAUNK95.4 pg/mLNormal4.0-51.3The St. [facility] HospitalComment on above: Result Comment: CUT-OFF POINTS HAVE BEEN ESTABLISHED BASED ON THE FOURTH UNIVERSAL DEFINITIONS OF MYOCARDIALINFARCTION. THE UPPER REFERENCE LIMIT (URL) OF TROPONIN, DEFINED THE 99TH PERCENTILE OFcTnI DISTRIBUTION IN A REFERENCE POPULATION, HAS BEEN CONFIRMED THE DECISION THRESHOLDFOR W[place] DIAGNOSIS. Performed By: #### CMP, VALP, HSTROPN ####[facility] [address]zvv[address] [place] [address]Dr. Devin ChangURINE MICROSCOPIC ONLYon 31-16-4751GJGGGWCIBAOCWKFNZkpvrzzwIRJJ SEENLima Memorial HospitalComment on above:Performed By: #### CHUCKY, ERUR ####[facility] [address]tzmrqevxe[address] [place], [place] [address]Dr. Devin ChangBacteria identified Cx Nom (U) INDICATEDNoalThAvita Health System Bucyrus HospitalComsheridan community hospital on above:Performed By: #### CHUCKY, ERUR ####[facility] Wgvwvhfqpu10[address] [place] [address]Dr. Devin ChangCASTNONE SEENNormalNONE SEENLima Memorial HospitalComsheridan community hospital on above: Performed By: #### CHUCKY, ERUR ####[facility] Yyhuzamyms[address] [place], [place] [address]Dr. Devin ChangCrystals LM Nom (Urine sed)SEENAbnormal NONE SEENThe St. [facility] HospitalComsheridan community hospital on above:Performed By: #### CHUCKY ERUR ####[facility] Xjyacbnakv52[address] [place] [address]Dr. Devin ChangEpithelial cells LM Ql (Urine sed)FEWAbnormalNONE SEEN /RAREThe St. [facility] HospitalComsheridan community hospital on above:Performed By: #### CHUCKY, ERUR ####[facility] Ybdktdikxw9[address] [place] [address]Dr. Devin ChangMUCOUS NONE SEENNormalNONE SEENLima Memorial HospitalComsheridan community hospital on above:Performed By: #### CHUCKY, ERUR ####[facility] Cphfplgsnk75[address] [place] [address]Dr. Devin ClklwCRK1-7Gosudrpo9-9Ztj St. [facility] HospitalComment on above: Performed By: #### CHUCKY, ERUR ####[facility] Hewqutnegb[address] [place], [place]Dr. Devin SureshWBC (U) [#/Vol]/uLAbnormalNONE [facility] HospitalComment on above:Performed By: #### MERCEDEZ LOCKE ####[facility] Czajkyquos86[address] [place], [place]Dr. Devin SureshXR CHEST 1 Von 86-98-5567TT CHEST [address] [facility] CenterCT HEAD WO CONon 63-99-3912XX HEAD WO CONNPremier Health Upper Valley Medical CenterCHEMISTRYOrdered By: Lab ROPUser on 80-54-7688Dcfrrtq [Mass/Vol]66 mg/tRDoazpk34 - 99 mg/dLFTMC POC SubsectionComment on above:Result Comment: Notified RN/MDPOC Device SN [id number] Interpretation CodeFTMC POC SubsectionPOC User [id number] Invalid Interpretation CodeFTMC POC SubsectionPOC UsernamLAURA Calderon Invalid Interpretation CodeFTMC POC SubsectionCHEMISTRYOrdered By: SYSTEM SYSTEM on 21-80-0248Edtsghb [Mass/Vol]3.7 g/dLNormal3.3 - 5.0 gm/dLFTMC Remisol Albumin/Globulin [Mass ratio]1.2 {ratio}Normal1.1 - 2.2[facility] RemisolALP [Catalytic activity/Vol]76 [iU]/yScmydl49 - 98 Int._Unit/LFTMC RemisolALT No additional P-5'-P [Catalytic activity/Vol]13 [iU]/dNormal6 - 46 Int._Unit/LFTMC RemisolAnion gap [Moles/Vol]12 mmol/LNormal6 - 16 mEq/LFTMC RemisolAST [Catalytic activity/Vol]15 [iU]/dNormal5 - 43 Int._Unit/LFTMC RemisolBilirubin [Mass/Vol]0.5 mg/dLNormal0.0 - 1.1 mg/dLFTMC RemisolBilirubin.direct [Mass/Vol] 0.1 mg/dLNormal0.1 - 0.4 mg/dLFTMC RemisolBilirubin.indirect [Mass or moles/Vol] 0.4 mg/dLNormal0.1 - 0.9 mg/dLFTMC RemisolCalcium [Mass/Vol]9.0 mg/dLNormal8.9 - 11.1 mg/dLFTMC RemisolChloride [Moles/Vol]105 mmol/VTexdeg293 - 111 mmol/LFTMC RemisolCO2 [Moles/Vol]25 mmol/WGvpjaz88 - 31 mmol/LFTMC RemisolCreatinine [Mass/Vol]0.7 mg/dLNormal0.5 - 1.3 mg/dLFTMC RemisolGFR/1.73 sq M.predicted among blacks MDRD (S/P/Bld) [Vol rate/Area]mL/min/1.73 h5Ooeoda>=59mL/min/1.73 m2FT[facility] Chem SGFR/1.73 sq M.predicted among non-blacks MDRD (S/P/Bld) [Vol rate/Area]mL/min/1.73 b4Idcama>=59mL/min/1.73 m2FT Chem SGlobulin (S) [Mass/Vol]3.1 g/dLNormal1.4 - 4.0 gm/dLFTMC RemisolGlucose [Mass/Vol]81 mg/dL Bqjjnn29 - 199 mg/dLFTMC RemisolLipase [Catalytic activity/Vol]29 U/WZmvfop60 - 58 unit/LFTMC RemisolPotassium [Moles/Vol]3.0 mmol/LLow3.5 - 5.3 mmol/LFTMC RemisolProtein [Mass/Vol]6.8 g/dLNormal6.0 - 7.8 gm/dLFTMC RemisolSodium [Moles/Vol]139 mmol/CQdfaem743 - 145 mmol/LFTMC RemisolUrea nitrogen [Mass/Vol] 12 mg/dLNormal5 - 21 mg/dLFTMC RemisolUrea nitrogen/Creatinine [Mass ratio]17 mg/rrYgydnv05 - 20FT[facility] RemisolHEMATOLOGYOrdered By: SYSTEM SYSTEM on 01-24-2022 Basophils/100 WBC (Bld)1.0 %Normal0.0 - 2.0 %[facility] HemeAutoSSBasophils/Leukocytes Auto (Bld) [Pure # fraction]0.1 E9/LNormal0.0 - 0.2 E9/LFTMC HemeAutoSS Eosinophils/100 WBC (Bld)1.4 %Normal0.0 - 8.0 %[facility] HemeAutoSS Eosinophils/Leukocytes Auto (Bld) [Pure # fraction]0.1 E9/LNormal0.0 - 0.5 E9/L [facility] HemeAutoSSLymphocytes/100 WBC (Bld)24.9 %Rkrjaa04.0 - 50.0 %[facility] HemeAutoSS Lymphocytes/Leukocytes Auto (Bld) [Pure # fraction]2.2 E9/LNormal1.0 - 4.0 E9/L [facility] HemeAutoSSMonocytes/100 WBC (Bld)4.6 %Normal4.0 - 14.0 %[facility] HemeAutoSS Monocytes/Leukocytes Auto (Bld) [Pure # fraction]0.4 E9/LNormal0.2 - 1.0 E9/L [facility] HemeAutoSSNeutrophils/100 WBC (Bld)68.1 %Xyyrwd69.0 - 75.0 %[facility] HemeAutoSS Neutrophils/Leukocytes Auto (Bld) [Pure # fraction]6.1 E9/LNormal2.0 - 7.5 E9/L [facility] HemeAutoSSHEMATOLOGYOrdered By: Mansi Cortez on 27-34-0199Koqoysjddbf distribution width (RBC) [Ratio]13.1 %Obozpr91.9 - 14.2 %[facility] HemeAutoSS Hematocrit (Bld) [Volume fraction]38.2 %Qkshni35.0 - 46.0 %[facility] HemeAutoSS Hemoglobin (Bld) [Mass/Vol]13.3 g/eRWtrfnx81.0 - 16.0 gm/dLFTMC HemeAutoSSMCH (RBC) [Entitic mass]30.6 oxPwmnux23.0 - 34.0 pgFTMC HemeAutoSSMCHC (RBC) [Mass/Vol]34.8 g/mYTkyryi34.4 - 36.0 gm/dLFTMC HemeAutoSSMCV (RBC) [Entitic vol] 87.8 nYNkohaw54.0 - 100.0 fLFTMC HemeAutoSSPlatelet mean volume (Bld) [Entitic vol]6.8 fLNormal6.4 - 10.8 fLOKLAHOMA HOSPITAL ASSOCIATION HemeAutoSSPlatelets (Bld) [#/Vol]362.0 E9/L Eceudd674.0 - 500.0 E9/LFROGER MILLS [facility] HemeAutoSSRBC (Bld) [#/Vol]4.4 E12/LNormal4.3 - 5.9 E12/[facility] HemeAutoSSWBC corrected for nucl RBC Auto (Bld) [#/Vol]9.0 E9/LNormal 4.0 - 11.0 E9/[facility] HemeAutoSSSEROLOGYOrdered By: Lawrence Natarajan on 83-00-5693Nujp hCG QlNegative (01/24/22 11:10 AM)NormalOKLAHOMA HOSPITAL ASSOCIATION Man SeroURINALYSISOrdered By: Lawrence Natarajan on 33-06-1878Cwtsxmkr LM Ql (Urine sed)Trace /HPFNormalTrace/HPFOKLAHOMA HOSPITAL ASSOCIATION UA Auto SS Bilirubin Ql (U)Negative (01/24/22 12:40 PM)NormalNegativeOKLAHOMA HOSPITAL ASSOCIATION UA Auto SSClarity (U)Clear (01/24/22 12:40 PM)NormalClearFROGER MILLS [facility] UA Auto SSColor (U)Yellow (01/24/22 12:40 PM)NormalYellowOKLAHOMA HOSPITAL ASSOCIATION UA Auto SSEpithelial cells.squamous LM.HPF (Urine sed) [#/Area]5-8 /HPFNormal0-2/HPFOKLAHOMA HOSPITAL ASSOCIATION UA Auto SSGlucose Test strip (U) [Mass/Vol]Negative (01/24/22 12:40 PM)NormalNegativeOKLAHOMA HOSPITAL ASSOCIATION UA Auto SSHemoglobin Ql (U)Negative (01/24/22 12:40 PM)NormalNegativeOKLAHOMA HOSPITAL ASSOCIATION UA Auto SSKetones (U) [Mass/Vol]Negative (01/24/22 12:40 PM)NormalNegativeOKLAHOMA HOSPITAL ASSOCIATION UA Auto SSLithium.plasma/[place].RBC (Bld) [Mass ratio]0-3 /HPFNormal0-3/HPFOKLAHOMA HOSPITAL ASSOCIATION UA Auto SSNitrite Ql (U)Negative (01/24/22 12:40 PM)NormalNegativeOKLAHOMA HOSPITAL ASSOCIATION UA Auto SSpH (U)6.0 *NA* (01/24/22 12:40 PM)Invalid Interpretation Code5.0 - 9.0OK[facility] UA Auto SSProtein (U) [Mass/Vol]Trace *ABN* (01/24/22 12:40 PM)Invalid Interpretation CodeNegativeOKLAHOMA HOSPITAL ASSOCIATION UA Auto SSSpecific gravity (U) [Rel density]1.010 *NA* (01/24/22 12:40 PM)Invalid Interpretation Code1.005 - 1.030OK[facility] UA Auto SSUA Spec DescClean Catch (01/24/22 12:40 PM)NormalOKLAHOMA HOSPITAL ASSOCIATION UA Auto SSUrobilinogen Qn (U)0.0920722 {Sheyla'U}/dLNormal0.0 - 1.0 EU/dLOKLAHOMA HOSPITAL ASSOCIATION UA Auto SSWBC Auto Ql (U)Negative (01/24/22 12:40 PM)NormalNegativeOKLAHOMA HOSPITAL ASSOCIATION UA Auto SSWBC LM.HPF (Urine sed) [#/Area]0-5 /HPFNormal0-5/HPFOKLAHOMA HOSPITAL ASSOCIATION UA Auto SSCHEMISTRYOrdered By: SYSTEM SYSTEM on 08-85-4640Ocsnmgyn I.cardiac [Mass/Vol]4.80 pg/mLLow10.10 - 27.10 pg/mLFT RemisolTroponin I.cardiac [Mass/Vol]4.40 pg/mLLow10.10 - 27.10 pg/mLOKLAHOMA HOSPITAL ASSOCIATION Remisol Albumin [Mass/Vol]3.3 g/dLNormal3.3 - 5.0 gm/dLOKLAHOMA HOSPITAL ASSOCIATION RemisolAlbumin/Globulin [Mass ratio]1.1 {ratio}Normal1.1 - 2.2[facility] RemisolALP [Catalytic activity/Vol]75 [iU]/oDwnhsd23 - 98 Int._Unit/LFTMC RemisolALT No additional P-5'-P [Catalytic activity/Vol]13 [iU]/dNormal6 - 46 Int._Unit/LFTMC RemisolAnion gap [Moles/Vol] 12 mmol/LNormal6 - 16 mEq/LFTMC RemisolAST [Catalytic activity/Vol]14 [iU]/d Normal5 - 43 Int._Unit/LFTMC RemisolBilirubin [Mass/Vol]0.3 mg/dLNormal0.0 - 1.1 mg/dLMC RemisolBilirubin.direct [Mass/Vol]0.1 mg/dLNormal0.1 - 0.4 mg/dLFTMC RemisolBilirubin.indirect [Mass or moles/Vol]0.2 mg/dLNormal0.1 - 0.9 mg/dLFTMC RemisolCalcium [Mass/Vol]8.7 mg/dLLow8.9 - 11.1 mg/dLFTMC RemisolChloride [Moles/Vol]104 mmol/LZjxaem252 - 111 mmol/LFTMC RemisolCO2 [Moles/Vol]27 mmol/L Pvdsbs48 - 31 mmol/LFTMC RemisolCreatinine [Mass/Vol]0.8 mg/dLNormal0.5 - 1.3 mg/dLFTMC RemisolGFR/1.73 sq M.predicted among blacks MDRD (S/P/Bld) [Vol rate/Area]mL/min/1.73 w4Hifnoa>=59mL/min/1.73 m2[facility] Chem SGFR/1.73 sq M.predicted among non-blacks MDRD (S/P/Bld) [Vol rate/Area]mL/min/1.73 f8Ojrpia >=59mL/min/1.73 m2[facility] Chem SGlobulin (S) [Mass/Vol]2.9 g/dLNormal1.4 - 4.0 gm/dLFTMC RemisolGlucose [Mass/Vol]137 mg/yGMaxsmy49 - 199 mg/dLFTMC Remisol Magnesium [Mass/Vol]1.2 mg/dLLow1.3 - 2.4 mg/dLFTMC RemisolPotassium [Moles/Vol] 3.5 mmol/LNormal3.5 - 5.3 mmol/LFTMC RemisolProtein [Mass/Vol]6.2 g/dLNormal6.0 - 7.8 gm/dLFTMC RemisolSodium [Moles/Vol]139 mmol/IVjbesq299 - 145 mmol/LFTMC RemisolTroponin I.cardiac [Mass/Vol]5.40 pg/mLLow10.10 - 27.10 pg/mLFTMC Remisol Urea nitrogen [Mass/Vol]13 mg/dLNormal5 - 21 mg/dLFTMC RemisolUrea nitrogen/Creatinine [Mass ratio]16 mg/fmBkjxyi43 - 20FT RemisolCHEMISTRY Ordered By: Lab ROPUser on 95-29-9048Lxdaoov [Mass/Vol]178 mg/jWYhkp42 - 99 mg/dLOKLAHOMA HOSPITAL ASSOCIATION POC SubsectionPOC Device [id number] Interpretation CodeOKLAHOMA HOSPITAL ASSOCIATION POC SubsectionPOC User [id number] Interpretation CodeOKLAHOMA HOSPITAL ASSOCIATION POC SubsectionPOC UsernameMICHOLAS, ASHLEYInvalid Interpretation CodeOKLAHOMA HOSPITAL ASSOCIATION POC SubsectionCHEMISTRYOrdered By: Shannen Sosa on 12-08-8775Eddtillgtyt peptide B (Bld) [Mass/Vol]17 pg/mLNormal5 - 80 pg/mLFTMC HemeManSSCOAGULATIONOrdered By: Karen Murphy on 08-09-6048mTEM Coag (PPP) [Time]36.7 sHigh25.1 - 36.5 second(s)[facility] Auto CoagFibrin D-dimer FEU (PPP) [Mass/Vol]494 ng/mL NHZJoxjlw389 - 500 ng/mL FEUFC Auto CoagINR Coag (PPP) [Relative time]1.0 {INR}Invalid Interpretation CodeOKLAHOMA HOSPITAL ASSOCIATION Auto CoagPT Coag (PPP) [Time]10.5 sNormal9.4 - 12.5 second(s)[facility] Auto CoagHEMATOLOGYOrdered By: SYSTEM SYSTEM on 01-09-2022 Basophils/100 WBC (Bld)0.5 %Normal0.0 - 2.0 %[facility] HemeAutoSSBasophils/Leukocytes Auto (Bld) [Pure # fraction]0.0 E9/LNormal0.0 - 0.2 E9/LFTMC HemeAutoSS Eosinophils/100 WBC (Bld)1.9 %Normal0.0 - 8.0 %[facility] HemeAutoSS Eosinophils/Leukocytes Auto (Bld) [Pure # fraction]0.1 E9/LNormal0.0 - 0.5 E9/L [facility] HemeAutoSSLymphocytes/100 WBC (Bld)25.4 %Wezfbt16.0 - 50.0 %[facility] HemeAutoSS Lymphocytes/Leukocytes Auto (Bld) [Pure # fraction]1.8 E9/LNormal1.0 - 4.0 E9/L [facility] HemeAutoSSMonocytes/100 WBC (Bld)6.2 %Normal4.0 - 14.0 %[facility] HemeAutoSS Monocytes/Leukocytes Auto (Bld) [Pure # fraction]0.4 E9/LNormal0.2 - 1.0 E9/L [facility] HemeAutoSSNeutrophils/100 WBC (Bld)66.0 %Huiuxv13.0 - 75.0 %[facility] HemeAutoSS Neutrophils/Leukocytes Auto (Bld) [Pure # fraction]4.6 E9/LNormal2.0 - 7.5 E9/L [facility] HemeAutoSSHEMATOLOGYOrdered By: Shannen Sosa on [id number] distribution width (RBC) [Ratio]13.3 %Eyfvcg56.9 - 14.2 %[facility] HemeAutoSS Hematocrit (Bld) [Volume fraction]38.6 %Laiwst90.0 - 46.0 %[facility] HemeAutoSS Hemoglobin (Bld) [Mass/Vol]13.0 g/nDSwiypm81.0 - 16.0 gm/dLFTMC HemeAutoSSMCH (RBC) [Entitic mass]29.7 phCmrzsk22.0 - 34.0 pgFTMC HemeAutoSSMCHC (RBC) [Mass/Vol]33.7 g/sXYndtih45.4 - 36.0 gm/dLFTMC HemeAutoSSMCV (RBC) [Entitic vol] 88.2 iRCopgcd19.0 - 100.0 fLFTMC HemeAutoSSPlatelet mean volume (Bld) [Entitic vol]7.6 fLNormal6.4 - 10.8 fLFTMC HemeAutoSSPlatelets (Bld) [#/Vol]278.0 E9/L Bfzqtz996.0 - 500.0 E9/L[facility] HemeAutoSSRBC (Bld) [#/Vol]4.4 E12/LNormal4.3 - 5.9 E12/LFT[facility] HemeAutoSSWBC corrected for nucl RBC Auto (Bld) [#/Vol]6.9 E9/LNormal 4.0 - 11.0 E9/LFT[facility] HemeAutoSSURINALYSISOrdered By: Karen Murphy on [id number] LM Ql (Urine sed)Trace /HPFNormalTrace/HPFOKLAHOMA HOSPITAL ASSOCIATION UA Auto SS Bilirubin Ql (U)Negative (01/09/22 1:58 PM)NormalNegativeOKLAHOMA HOSPITAL ASSOCIATION UA Auto SSClarity (U)Slightly Cloudy *ABN* (01/09/22 1:58 PM)Invalid Interpretation CodeClearFROGER MILLS [facility] [place] UA Auto SSColor (U)Yellow (01/09/22 1:58 PM)NormalYellowOKLAHOMA HOSPITAL ASSOCIATION UA Auto SSEpithelial cells.squamous LM.HPF (Urine sed) [#/Area]5-8 /HPFNormal0-2/HPFOKLAHOMA HOSPITAL ASSOCIATION UA Auto SSGlucose Test strip (U) [Mass/Vol]1+ *ABN* (01/09/22 1:58 PM)Invalid Interpretation CodeNegativeOKLAHOMA HOSPITAL ASSOCIATION UA Auto SSHemoglobin Ql (U)Negative (01/09/22 1:58 PM)NormalNegativeOKLAHOMA HOSPITAL ASSOCI[facility] UA Auto SSKetones (U) [Mass/Vol]Negative (01/09/22 1:58 PM)NormalNegativeOKLAHOMA HOSPITAL ASSOCIATION UA Auto SSLithium.plasma/[place].RBC (Bld) [Mass ratio]0-3 /HPFNormal0-3/HPFOKLAHOMA HOSPITAL ASSOCIATION UA Auto SSMucus Ql (Urine sed)Trace (01/09/22 1:58 PM)NormalOKLAHOMA HOSPITAL ASSOCIATION UA Auto SSNitrite Ql (U)Negative (01/09/22 1:58 PM)NormalNegativeOKLAHOMA [facility]OSPITAL ASSOC[facility] UA Auto SSpH (U)6.0 *NA* (01/09/22 1:58 PM)Invalid Interpretation Code5.0 - 9.0OK[facility] UA Auto SSProtein (U) [Mass/Vol]Negative (01/09/22 1:58 PM)NormalNegativeOKLAHOMA HOSPITAL ASSOCIATION UA Auto SSSpecific gravity (U) [Rel density] >=1.030 *NA* (01/09/22 1:58 PM)Invalid Interpretation Code1.005 - 1.030[facility] UA Auto SSUA Spec DescClean Catch (01/09/22 1:58 PM)NormalOKLAHOMA HOSPITAL ASSOCIATION UA Auto SSUrobilinogen Qn (U)[id number] {Sheyla'U}/dLNormal0.0 - 1.0 EU/dLOKLAHOMA HOSPITAL ASSOCIATION UA Auto SSWBC Auto Ql (U)Negative (8/18/22 1:58 PM)NormalNegativeOKLAHOMA HOSPITAL ASSOCIATION UA Auto SSWBC LM.HPF (Urine sed) [#/Area]0-5 /HPFNormal0-5/HPFFT UA Auto SSCULTURE URINEon 90-86-4931CDMKETS URINENormal The [facility] HospitalComment on above:Performed By: #### URCX ####[facility] [address]rfzv[address] [place] [address]Dr. Devin Suresh CARDIAC LAURA 3-6on 21-29-8575SO [Catalytic activity/Vol]38 U/GLnwkav76-036Ifd St. Vincent HospitalComment on above:Performed By: #### CMREP ####[facility] Erdfdnobfg9[address] [place], [place] [address]Dr. Devin SureshCK.MB [Mass/Vol]0.86 ng/mLNormal<=3.60The [facility] HospitalComment on above:Performed By: #### CMREP ####[facility] Uqubrmuslu[address] [place], [place] [address]Dr. Devin SureshHSTROP7.8 pg/mLNormal4.0-51.3The [facility] Comment on above:Result Comment: CUT-OFF POINTS HAVE BEEN ESTABLISHED BASED ON THE FOURTH UNIVERSAL DEFINITIONS OF MYOCARDIALINFARCTION. THE UPPER REFERENCE LIMIT (URL) OF TROPONIN, DEFINED THE 99TH PERCENTILE OFcTnI DISTRIBUTION IN A REFERENCE POPULATION, HAS BEEN CONFIRMED THE DECISION THRESHOLDFOR [place] DIAGNO SIS.Performed By: #### CMREP ####[facility] Umdsnldvui[address] [place], [place] [address]Dr. Devin ChangCT ABD/PELVIS WO CONon 25-27-3939FU ABD/PELVIS WO CONNPremier Health Upper Valley Medical CenterCT HEAD WO CONon 88-61-8938YG HEAD WO CONNPremier Health Upper Valley Medical CenterER URINE PROFILEon 72-76-2330Xrmoinjsa Ql (U) SMALLAbnormalNEGATIVELima Memorial HospitalComment on above:Performed By: #### MERCEDEZ LOCKE ####[facility] Vggcaltpun[address] [place], [place] [address]Dr. Devin ChangClarity (U)CLEARNormalCLEARLima Memorial HospitalComment on above:Performed By: #### SAMANTHA LOCKER ####[facility] Qvragtbqxf[address]41 [place], [place]Dr. Yilan ChangColor (U)YELLOWNormalYELLOWLima Memorial HospitalComment on above:Performed By: #### SAMANTHA LOCKER ####[facility] Fbdtbgrwfc8040 [place], [place]Dr. Yilan ClarenceRUAHD A micrscopic examination will be performed if indicated.NormalThe [facility]hoit HospitalComment on above:Performed By: #### SAMANTHA LOCKER ####[facility] Fpsigcznuk9[address] [place], [place]Dr. Tishlan ChangGlucose Ql (U) >1000AbnormalNEGATIVELima Memorial HospitalComment on above:Performed By: #### SAMANTHA LOCKER ####[facility] Jmbfuhgzsh7318 [place], [place] [address]Py. Tishlan ChangHemoglobin Ql (U)SMALLAbnormalNEGFirelands Regional Medical Center South Campus Comment on above:Performed By: #### SAMANTHA LOCKER ####[facility] Yk[address]vknj[address] [place] [id number]. Tishlan ChangKetones Ql (U) 15 mg/dlAbnormalNEGATIVELima Memorial HospitalComment on above:Performed By: #### SAMANTHA LOCKER ####[facility] Eilflneddr[address] [place] [id number]. Tishlan ChangLEUKOCYTESSMALLAbnormalNEGFirelands Regional Medical Center South Campus Comment on above:Performed By: #### SAMANTHA LOCKER ####[facility] Vgdutldjyf5[address] [place] [phone]. Tishlan ChangNitrite Ql (U) PositiveAbnormalNEGATIVELima Memorial HospitalComment on above:Performed By: #### CHUCKY ERUR ####[facility] Kcfjjfttyj[address] [place] [id number]. Tishlan ChangpH (U)5.0 [pH]Normal5-9The [facility] HospitalComment on above:Performed By: #### SAMANTHA LOCKER ####[facility] Ozkbsvtaem0514 [address] Devin ChangProtein (U) [Mass/Vol]100 mg/dL AbnormalNEGATIVE/ TRACEThe Dayhoit HospitalComment on above:Performed By: #### SAMANTHA LOCKER ####[facility] Ijsjnywkef[address] [place] [address]Dr. Yiemily ChangSPEC GRAVITY>=1.063Qykzxftd3.005-<=1.025The St. [facility] HospitalComment on above:Performed By: #### SAMANTHA LOCKER ####[facility] Xnimsqnjnr3381 [address] Devin SureshUR MICRO IND INDICATEDNormalThe St. Vincent HospitalComment on above:Performed By: #### SAMANTHA LOCKER ####[facility] Xyybvoifml[address] [place], [place] [address]r. Devin ChangUrobilinogen Qn (U)0.2 {Sheyla'U}/dLNormal0.2 - 1.0The [facility] HospitalComment on above:Performed By: #### MERCEDEZ LOCKE ####[facility] Bpbjxkoukw[address] [place], [place] [address]r. Devin ChangLACTATE/LACTIC ACIDon 55-89-3222Venjsuh [Moles/Vol]1.1 mmol/LNormal0.4-1.9The [facility] Comment on above:Performed By: #### LACT ####[facility] Bgtywicnnn[address] [place], [place] [address]Dr. Devin SureshURINE MICROSCOPIC ONLYon 18-62-7326DTTDGASSGJCXOQxhyilcjSVQH SEENThe St. [facility] HospitalComment on above: Performed By: #### SAMANTHA LOCKER ####[facility] Ufrhahxzvb[address] [place], [place] [address]r. Devin ChangBacteria identified Cx Nom (U)INDICATED NormalThe St. Vincent HospitalComment on above:Performed By: #### MERCEDEZ LOCEK ####[facility] Jkdjqeokya5475 [place], [place]Dr. Devin ChangCASTNONE SEENNormalNONE SEENLima Memorial HospitalComsheridan community hospital on above: Performed By: #### CHUCKY ERUR ####[facility] Niayicvdfe[address] [place], [place]Dr. Devin SureshCrystals LM Nom (Urine sed)NONE SEEN NormalNONE SEENThe St. Vincent HospitalComsheridan community hospital on above:Performed By: #### CHUCKY, ERUR ####[facility] Nawxwaeepk7934 [place], [place]Dr. Devin ChangEpithelial cells LM Ql (Urine sed)FEWAbnormalNONE SEEN /RAREThe St. [facility] HospitalComsheridan community hospital on above:Performed By: #### CHUCKY ERUR ####[facility] Uyvwymmfbz26[address] [place] [id number]. Devin SureshMUCOUS NONE SEENNormalNONE SEENLima Memorial HospitalComsheridan community hospital on above:Performed By: #### CHUCKY ERUR ####[facility] Heppghetcf9[address] [place] [id number]. Devin SureshXtqaiWYR2-1Eforww4-4Itd St[facility] HospitalComsheridan community hospital on above: Performed By: #### CHUCKY ERUR ####[facility] Egaexiydlg6[address] [place] [id number]. Devin SureshWBC5-10AbnormalNONE SEENLima Memorial HospitalComsheridan community hospital on above:Performed By: #### CHUCKY ERUR ####[facility] Ffzjrjfrhh4708 [place], [place]Dr. Devin SureshXR CHEST 1 Von 60-90-8414UB CHEST [address] [facility] HospitalCARDIAC LAURA ADMITon 01-01-2022 CK [Catalytic activity/Vol]40 U/WJrydqw35-079Zbg [facility] on above:Performed By: #### BMP, CMADM ####[facility] Reahxqekjv9612 [place], [place] [address]Bo. Devin Walden.MB [Mass/Vol]0.95 ng/mLNormal <=3.60The [facility] HospitalComment on above:Performed By: #### ALEXIA CMADM ####[facility] Zbnodxgggs7[address] [place], [place] [address]Dr. Yilan ChangHSTROP6.7 pg/mLNormal4.0-51.3The [facility] HospitalComment on above: Result Comment: CUT-OFF POINTS HAVE BEEN ESTABLISHED BASED ON THE FOURTH UNIVERSAL DEFINITIONS OF MYOCARDIALINFARCTION. THE UPPER REFERENCE LIMIT (URL) OF TROPONIN, DEFINED THE 99TH PERCENTILE OFcTnI DISTRIBUTION IN A REFERENCE POPULATION, HAS BEEN CONFIRMED THE DECISION THRESHOLDFOR W[place] DIAGNOSIS. Performed By: #### TASNEEM HALEDM ####[facility] Zunwmxzqwa[address] [place], [place] [address]Dr. Yilan AihnpRPT96 ng/mLNormal9-82The St. [facility] HospitalComment on above:Performed By: #### TASNEEM HALEDM ####[facility] Xlziehhbvm[address] [place], [place] [address]Dr. Yilan ChangCBC AUTO DIFF on 06-09-3322HPWA #0.1 103/ulNormal0.0-0.1The St. [facility] HospitalComment on above: Performed By: #### CBC ####[facility] Ncqdilbmht24[address] [place], [place] [address]Dr.Yilan ChangBasophils/100 WBC (Bld)0.5 %Normal 0.2-2.0The [facility] HospitalComment on above:Performed By: #### CBC ####[facility] Bykglptvll[address] [place], [place] [address]Dr.Yilan ChangEO # 0.1 103/ulNormal0.0-0.7The [facility] HospitalComment on above:Performed By: #### CBC ####[facility] Bnzmgidseu[address] [place], [place] [address]Dr. Yilan ChangEosinophils/100 WBC (Bld)0.7 %Critically low0.9-7.0The [facility] HospitalComment on above:Performed By: #### CBC ####[facility] Lqxkmimjur805[address] [place], [place] [address]Dr.Tishemily ChangErythrocyte distribution width (RBC) [Ratio]12.5 %Iipnvi63.0-15.0The [facility] Comment on above:Performed By: #### CBC ####[facility] Zgrvbsskpw5[address] [place] [address]Dr.Tishemily ChangHematocrit (Bld) [Volume fraction]43.0 %Jnrvdh96.0-48.0The [facility] HospitalComment on above:Performed By: #### CBC ####[facility] Tpbudzrciz[address] [place], [place] [address]Dr.Tishemily ChangHemoglobin (Bld) [Mass/Vol]15.2 g/xYRznogu94.0-16.0The [facility] HospitalComment on above:Performed By: #### CBC ####[facility] Gnkparybvs13[address] [place], [place] [address]Dr.Yilan ChangIG #0.05 10e3/ulCritically high0.00-0.03The [facility] HospitalComment on above:Performed By: #### CBC ####[facility] Vgclwhxpkh[address] [place], [place] [address]Dr.Yiemily ChangIG %0.4 %Normal0.0-0.5The [facility] HospitalComment on above: Performed By: #### CBC ####[facility] Ovdwhddobh[address] [place], [place] [address]Dr.Tishlan ChangLYMPH #2.0 103/ulNormal1.2-3.8The [facility] HospitalComment on above:Performed By: #### CBC ####[facility] Qqgnkcmgzn605[address] [place], [place] [address]Dr.Yilan ChangLymphocytes/100 WBC (Bld)15.1 %Critically low20.5-60.0The [facility] HospitalComment on above: Performed By: #### CBC ####[facility] Twftdeydeh[address] [place], [place] [address]Dr.Tishlan ChangMANUAL DIFF REQNONormalThe St. Vincent HospitalComment on above:Performed By: #### CBC ####[facility] Zilkgjhizb27[address] [place] [address]Dr.Devin KerwinH (RBC) [Entitic mass]30.2 pqDyfvmo32.7-34.0The [facility] HospitalComment on above: Performed By: #### CBC ####[facility] Sdbuagbqna66[address] [place] [address]Dr.Devin KerwinHC (RBC) [Mass/Vol]35.3 g/dLCritically high29.9-35.2The [facility] HospitalComment on above:Performed By: #### CBC ####[facility] Apfgjlbpaa6652 [place] [address]Dr. Devin SureshV (RBC) [Entitic vol]85.3 rHDssqbc15.0-99.0The [facility] Comment on above:Performed By: #### CBC ####[facility] Pxtxgoevri[address] [place], [place] [address]Dr.Devin SureshMONO #0.7 103/ulNormal0.3-0.[address] [facility] HospitalComment on above:Performed By: #### CBC ####[facility] Gnopzcehre40[address] [place], [place] [address]Dr.Devin Suresh Monocytes/100 WBC (Bld)5.6 %Normal1.7-12.0The [facility] HospitalComment on above: Performed By: #### CBC ####[facility] Arpbcenazg72[address] [place], [place] [address]Dr.Devin SureshNEUT #10.2 103/ulCritically high1.4-6.[address] [facility] HospitalComment on above:Performed By: #### CBC ####[facility] Dsygtvxbms924[address] [place], [place] [address]Dr.Devin Suresh Neutrophils/100 WBC (Bld)77.7 %Critically high43.0-75.0The [facility] Comment on above:Performed By: #### CBC ####[facility] Aeowlzzgsd101[address] [place], [place] [address]Dr.Devin SureshPlatelet mean volume (Bld) [Entitic vol]9.1 fLCritically low9.5-13.5The [facility] HospitalComment on above: Performed By: #### CBC ####[facility] Ccekugzzij9446 [place], [place] [address]Dh.Devin SureshPLT420 103/vmKbpmjm797-253Xmp St. [facility] HospitalComment on above:Performed By: #### CBC ####[facility] Kuabiuwwmt[address] [place] [id number].Devin SureshRBC5.04 106/ul Normal4.20-5.40The [facility] HospitalComment on above:Performed By: #### CBC ####[facility] Qihvypcuvx7570 [place], [place] [address]Kr. Devin SureshWBC13.1 103/ulCritically high4.0-11.0The [facility] HospitalComment on above:Performed By: #### CBC ####[facility] Wcfxkyvmei27[address] [place] [address]Dr.Devin SureshCovid-19 PCR (CVDTBH)on 01-01-2022 SARS-CoV-2 (COVID-19) RNA EBONIE+probe Ql (Unsp spec)Not detectedNormalNOT DETECTED The [facility] on above:Result Comment: When diagnostic testing [...] for this test is supported by the Database Security Expert of Health and Human Service's declaration that [...] no longer be used).Performed By: #### CVDTBH ####[facility] Qovblbqcsr85[address] [place] [address]Dr. Devni ChangD-DIMERon 03-24-0266H-DIMER0.36 mg/L FEUNormal<=0.59The [facility] on above: Performed By: #### DDIM ####[facility] Gfprlhfaek[address] [place], [place] [address]Dr. Yilan ChangD-DIMER COMMENTSSEE BELOWNormalThAvita Health System Bucyrus HospitalComsheridan community hospital on above:Result Comment: Increases in D-Dimer [...] stress, and generalized hospitalization.Performed By: #### DDIM ####[facility] Rmxmhqajcf[address] [place], [place] [address]Dr. Yilan ChangLACTATE/LACTIC ACIDon 97-46-0869Oilxtpm [Moles/Vol]1.8 mmol/LNormal 0.4-1.9The [facility] on above:Performed By: #### LACT ####[facility] Ddpcjwxllx[address] [place], [place] [address]Dr. Devin ChangPROF CHEM 8 (BAS METB)on 03-46-2746Bkqkl gap [Moles/Vol]16.5 mmol/L NormalThe [facility] on above:Performed By: #### BMP, CMADM ####[facility] Gjlqqlyvkz053[address] [place], [place] [address]Dr. Tishlan ChangCalcium [Mass/Vol]9.9 mg/dLNormal8.5-10.1The [facility] on above:Performed By: #### BMP, CMADM ####[facility] Cmgtiderbi[address] [place], [place] [address]Dr. Yilan ChangChloride [Moles/Vol]98 mmol/L Vixevx49-520Nzx Dayhoit HospitalComment on above:Performed By: #### ALEXIA, CMADM ####[facility] Wakqdooffd15[address] [place], [place] [address]Dr. Yilan ChangCO2 [Moles/Vol]25.6 mmol/XPlsfqm50.0-32.0The [facility] HospitalComment on above:Performed By: #### ALEXIA, CMADM ####[facility] Jrkqsfjkmv969[address] [place], [place] [address]Dr. Yilan ChangCreatinine [Mass/Vol]1.18 mg/dLCritically high0.55-1.02The [facility] HospitalComment on above:Performed By: #### ALEXIA, CMADM ####[facility] Qjjksvqtkj[address] [place], [place] [address]Dr. Yilan ChangEGFR-AF KSUUNPIC55 mL/min/1.89k8Dlvroz>=60The [facility] HospitalComment on above:Performed By: #### ALEXIA, CMADM ####[facility] Vflfnaefzs8[address] [place], [place] [address]Dr. Yilan ChangEGFR-NON AF VWYGXCLE51 mL/min/1.21x8Hierxbnmya low>=60The [facility] HospitalComment on above: Performed By: #### ALEXIA, CMADM ####[facility] [address]fkiyvpvuc97[address] [place], [place] [address]Dr. Yilan ChangGlucose [Mass/Vol]166 mg/dLCritically inhp09-273Mxy St. [facility] HospitalComment on above:Performed By: #### ALEXIA, CMADM ####[facility] Uleterujim[address] [place], [place] [address]Dr. Yilan ChangPotassium [Moles/Vol]3.1 mmol/LCritically low3.5-5.1The [facility] HospitalComment on above:Performed By: #### ALEXIA, CMADM ####[facility] Yoyhispwjq284[address] [place], [place] [address]Dr. Yilan ChangSodium [Moles/Vol]137 mmol/EHrqjeg501-086Gij St. [facility] HospitalComment on above: Performed By: #### ALEXIA, CMADM ####[facility] Rjbuekxngk[address] [place] [address]. Devin ChangUrea nitrogen [Mass/Vol]12.0 mg/dL Normal7.0-18.0The [facility] HospitalComment on above:Performed By: #### ALEXIA, HOWARD ####[facility] Igfjozxbac7897 [place], [place] [address]Dr. Devin ChangUrea nitrogen/Creatinine [Mass ratio]10.2 mg/mgNormalThe St. [facility] HospitalComment on above:Performed By: #### ALEXIA, CMAJONNY ####[facility] Vxanowgywd8155 [place], [place] [address]Nx. Devin Suresh CHEMISTRYOrdered By: SYSTEM SYSTEM on 71-43-4896Sgtdezcexjcd Screen method >1000 ng/mL Ql (U)Negative (12/08/21 11:54 AM)NormalNegativeOKLAHOMA HOSPITAL ASSOCIATION RemisolBarbiturates Screen Ql (U)Negative (12/08/21 11:54 AM)NormalNegativeFT[facility] RemisolBenzodiazepines Ql (U)Negative (12/08/21 11:54 AM)NormalNegativeFT[facility] RemisolCocaine Ql (U)Negative (12/08/21 11:54 AM)NormalNegative[facility] RemisolOpiates Screen Ql (U)Negative (12/08/21 11:54 AM)NormalNegativeOKLAHOMA HOSPITAL ASSOCIATION RemisolPhencyclidine Screen method >25 ng/mL Ql (U)Negative (12/08/21 11:54 AM)NormalNegativeFT[facility] RemisolTetrahydrocannabinol Screen method >50 ng/mL Ql (U)Negative (12/08/21 11:54 AM)NormalNegativeFT[facility] RemisolAnion gap [Moles/Vol]13 mmol/LNormal 6 - 16 mEq/LFTMC RemisolCalcium [Mass/Vol]9.4 mg/dLNormal8.9 - 11.1 mg/dLFTMC RemisolChloride [Moles/Vol]103 mmol/GBelryf220 - 111 mmol/LFTMC RemisolCO2 [Moles/Vol]26 mmol/QFxsban02 - 31 mmol/LFTMC RemisolCreatinine [Mass/Vol]0.9 mg/dLNormal0.5 - 1.3 mg/dLFTMC RemisolGFR/1.73 sq M.predicted among blacks MDRD (S/P/Bld) [Vol rate/Area]mL/min/1.73 z7Efdrsc>=59mL/min/1.73 m2[facility] Chem S GFR/1.73 sq M.predicted among non-blacks MDRD (S/P/Bld) [Vol rate/Area] mL/min/1.73 w6Tbbert>=59mL/min/1.73 m2[facility] Chem SGlucose [Mass/Vol]236 mg/dLHigh 55 - 199 mg/dLFTMC RemisolMagnesium [Mass/Vol]1.4 mg/dLNormal1.3 - 2.4 mg/dLFTMC RemisolPotassium [Moles/Vol]3.8 mmol/LNormal3.5 - 5.3 mmol/LFTMC RemisolSodium [Moles/Vol]138 mmol/JCtmaqe367 - 145 mmol/LFTMC RemisolUrea nitrogen [Mass/Vol] 16 mg/dLNormal5 - 21 mg/dLFTMC RemisolUrea nitrogen/Creatinine [Mass ratio]18 mg/wtGltedw94 - 20[facility] RemisolHEMATOLOGYOrdered By: SYSTEM SYSTEM on 12-08-2021 Basophils/100 WBC (Bld)0.7 %Normal0.0 - 2.0 %[facility] HemeAutoSSBasophils/Leukocytes Auto (Bld) [Pure # fraction]0.1 E9/LNormal0.0 - 0.2 E9/LFTMC HemeAutoSS Eosinophils/100 WBC (Bld)2.6 %Normal0.0 - 8.0 %[facility] HemeAutoSS Eosinophils/Leukocytes Auto (Bld) [Pure # fraction]0.2 E9/LNormal0.0 - 0.5 E9/L [facility] HemeAutoSSLymphocytes/100 WBC (Bld)24.8 %Njkylw40.0 - 50.0 %[facility] HemeAutoSS Lymphocytes/Leukocytes Auto (Bld) [Pure # fraction]1.9 E9/LNormal1.0 - 4.0 E9/L [facility] HemeAutoSSMonocytes/100 WBC (Bld)6.9 %Normal4.0 - 14.0 %[facility] HemeAutoSS Monocytes/Leukocytes Auto (Bld) [Pure # fraction]0.5 E9/LNormal0.2 - 1.0 E9/L [facility] HemeAutoSSNeutrophils/100 WBC (Bld)65.0 %Oykxcw04.0 - 75.0 %[facility] HemeAutoSS Neutrophils/Leukocytes Auto (Bld) [Pure # fraction]5.0 E9/LNormal2.0 - 7.5 E9/L [facility] HemeAutoSSHEMATOLOGYOrdered By: Mansi Cortez on 16-42-8626Qjzfwdbsfqp distribution width (RBC) [Ratio]12.6 %Kdeaxi65.9 - 14.2 %[facility] HemeAutoSS Hematocrit (Bld) [Volume fraction]39.5 %Gimsam42.0 - 46.0 %[facility] HemeAutoSS Hemoglobin (Bld) [Mass/Vol]13.7 g/gGOtmkeo43.0 - 16.0 gm/dLFTMC HemeAutoSSMCH (RBC) [Entitic mass]30.5 rqJlxnbf48.0 - 34.0 pgFTMC HemeAutoSSMCHC (RBC) [Mass/Vol]34.7 g/pBEfssdi67.4 - 36.0 gm/dLFTMC HemeAutoSSMCV (RBC) [Entitic vol] 87.7 aAQsolnd47.0 - 100.0 fLFTMC HemeAutoSSPlatelet mean volume (Bld) [Entitic vol]7.3 fLNormal6.4 - 10.8 fLFTMC HemeAutoSSPlatelets (Bld) [#/Vol]306.0 E9/L Diuhxo207.0 - 500.0 E9/LFTMC HemeAutoSSRBC (Bld) [#/Vol]4.5 E12/LNormal4.3 - 5.9 E12/LFTMC HemeAutoSSWBC corrected for nucl RBC Auto (Bld) [#/Vol]7.7 E9/LNormal 4.0 - 11.0 E9/LFTMC HemeAutoSSMicroscopic Urinalysison 83-95-1162Mheupebj, UAFEW AbnormalNegative /HPFBON SECREGENCY HOSPITAL CLEVELAND WESTEpithelial Cells, UA3-5/HPFBON SECRE[facility]ENCY HOSP[facility] WESTRBC, UA0-2B[facility] WESTWBC, UA3-5B[facility]ITALNo Panel Informationon 00-81-2471Pfeqepdylcjuag and review of laboratory resultsAbnormalBON [facility] Drug Screen Rapidon 41-70-5883Eafg Screen Commentsee belowNoMansfield HospitalComment on above:Result Comment: This method is a screening test to detect only these drug classes as part of a medical workup. Confirmatory testing by another method should be ordered if clinically indicated.Performed By: #### UDSNC #### [facility] [address] [place] [address] TH Amphetamines Rapid ScreenNegativeNormalNegative <[facility]ittman Medical CenterComment on above:Result Comment: Effective: 12/07/17 Methodology and/or Reference Range-Cutoff has changed.Performed By: #### UDSNC #### [facility] [address] [place] [address] AM Barbiturates Rapid ScreenNegativeNormalNegative <[facility] Rittman Medical CenterComment on above:Result Comment: Effective: 12/07/17 Methodology and/or Reference Range-Cutoff has changed.Performed By: #### UDSNC #### [facility] [address] [place] [address] IK Benzo Rapid ScreenNegativeNormalNegative <[facility] Comment on above:Result Comment: Effective: 12/07/17 Methodology and/or Reference Range-Cutoff has changed.Performed By: #### UDSNC #### [facility] [address] [place] [address] XP Cannabinoids Rapid ScreenNegativeNormalNegative <[facility] Ritt[facility] Medical CenterComment on above:Performed By: #### UDSNC #### [facility] [address] [place] [address] ER Cocaine Rapid ScreenNegativeNormalNegative <[facility] Comment on above:Result Comment: Effective: 12/07/17 Methodology and/or Reference Range-Cutoff has changed.Performed By: #### UDSNC #### [facility] [address] [place] [address] AV Opiates Rapid ScreenNegativeNormalNegative <[facility] Comment on above:Result Comment: Effective: 12/07/17 Methodology and/or Reference Range-Cutoff has changed.Performed By: #### UDSNC #### [facility] [address] [place] [address] RK PCP Rapid ScreenNegativeNormalNegative <[facility] Comment on above:Performed By: #### UDSNC #### [facility] [address] [place] [address] CQ Tricyclics Rapid Screen - RapidPositiveAbnormalNegative <[facility] Rittman Medical CenterComment on above:Result Comment: Effective: 12/07/17 Methodology and/or Reference Range-Cutoff has changed.Performed By: #### UDSNC #### [facility] [address] [place] [address] Jyhgvbqizi with Reflex to Cultureon 69-83-2607Dgogbbpbj Urine NegativeNegativeBON SECOURS MERCY HEALTHBlood, UrineNegativeNegativeBON SECOURS MERCY HEALTHClarity, UAClearClearBON SECOURS MERCY HEALTHColor, UAYellow Straw/YellowBON SECOURS MERCY HEALTHGlucose, Ur250 mg/dLAbnormalNegativeBON SECOURS MERCY HEALTHKetones Ql (U)NegativeNegative mg/dLBON SECOURS MERCY [facility]ALTH Leukocyte esterase Test strip Ql (U)TRACEAbnormalNegativeBON SECOURS MERCY HEALTHNitrite, UrineNegativeNegativeBON SECOURS MERCY HEALTHpH, UA5.05 - 9B[facility] HEALTHProtein, UANegativeNegative mg/dLBON SECOURS MERCY HEALTH Specific [place], UA1.0151.005 - 1.03B[facility] MERCY HEALTHUrine Reflex to CultureNot IndicatedBON SECOURS MERCY HEALTHUrobilinogen, Urine0.2NINFBON SECOURS MERCY HEALTHUrinalysis, reflex to cultureon [id number] Reflexed to CultureNot IndicatedNormalMerTsehootsooi Medical Center ([facility])Comment on above:Performed By: #### UAR #### [facility] [address] [place] [address] Zticctrga Ql (U)NegativeNormalNegVentura County Medical CenterComment on above:Performed By: #### UAR #### [facility] [address] [place] [address] Aoygxnl (U)ClearNormalClearSumma Health Wadsworth - Rittman Medical CenterComment on above: Performed By: #### UAR #### [facility] [address] [place] [address] Bdujh (U)YellowNormalStraw/YellSumma Health Wadsworth - Rittman Medical CenterComment on above: Performed By: #### UAR #### [facility] [address] [place] [address] Zfjawfl Ql (U)250 mg/dLAbnormalNegVentura County Medical CenterComment on above:Performed By: #### UAR #### [facility] [address] [place] [address] Ihftblxlyg Ql (U)NegativeNormalNegativeSumma Health Wadsworth - Rittman Medical CenterComment on above:Performed By: #### UAR #### [facility] [address] [place] [address] Aesgtpv Ql (U)NegativeNormalNegVentura County Medical CenterComsheridan community hospital on above:Performed By: #### UAR #### [facility] [facility] [address] [place] [address] Ilzmnyzdi esterase Test strip Ql (U)TRACEAbnormalNegVentura County Medical CenterComsheridan community hospital on above:Performed By: #### UAR #### [facility] [address] [place] [address] Cuduout Ql (U)NegativeNormalNegVentura County Medical CenterComment on above:Performed By: #### UAR #### [facility] [address] [place] [address] hJ (U)5.0 [pH]Normal5.0-9.0[facility] CenterComsheridan community hospital on above: Performed By: #### UAR #### [facility] [address] [place] [address] Zfvvcey Ql (U)NegativeNormalNegativeSumma Health Wadsworth - Rittman Medical CenterComment on above:Performed By: #### UAR #### [facility] [address] [place] [address] Cyryxwhy gravity (U) [Rel density]1.665Ldotln8.005-1.03[facility] - Rittman Medical CenterComment on above:Performed By: #### UAR #### [facility] [address] [place] [address] Hixcpofppzar Qn (U)0.2 {Sheyla'U}/dLNormal< 2.0[facility] Comment on above:Performed By: #### UAR #### [facility] [address] [place] [address] Tbdcp Drug Screen, Comprehensiveon 98-14-7916Xmkmqywaoox Screen, UrineNegativeNegative <500 ng/mLBAYSTATE MARY LANE HOSPITALTrendr [facility] EDWIN SHAWComment on above: Effective: 12/07/17 Methodology and/or Reference Range-Cutoff has changed. Barbiturate Screen, UrNegativeNegative <200 ng/mLBULLHEAD COMMUNITY [facility]OSPITAL [employer] [facility] EDWIN SHAWComment on above:Effective: 12/07/17 Methodology and/or Reference Range-Cutoff has changed. Benzodiazepine Screen, UrineNegativeNegative <150 ng/mLBULLHEAD COMMUNITY HOSPITAL [employer] Comment on above:Effective: 12/07/17 Methodology and/or Reference Range-Cutoff has changed. Cannabinoid Scrn, UrNegativeNegative <50 ng/mLBAYSTATE MARY LANE HOSPITALGrowth Oriented Development Software FULT[facility] COUNTY HEALTH CENTERNanjing [employer]ui[employer] [facility] EDWIN SHAWCocaine Metabolite Screen, UrineNegativeNegative <150 ng/mLBULLHEAD COMMUNITY HOSPITAL [employer] Comment on above:Effective: 12/07/17 Methodology and/or Reference Range-Cutoff has changed. Drug Screen Comment:see belowBAYSTATE MARY LANE HOSPITALTrendr [facility] ED[facility] SHAWComsheridan community hospital on above:This method is a screening test to detect only these drug classes as part of a medical workup. Confirmatory testing by another method should be ordered if clinically indicated. Interpretation and review of laboratory resultsAbnormalBAYSTATE MARY LANE HOSPITALTrendr [facility] Opiate Scrn, UrNegativeNegative <100 ng/mLBAYSTATE MARY LANE HOSPITALREGENCY HOSPITAL CLEVELAND WESTComment on above:Effective: 12/07/17 Methodology and/or Reference Range-Cutoff has changed. PCP Screen, UrineNegativeNegative <25 ng/mLBON SAMARITAN HOSPITALTricyclic PositiveAbnormalNegative <300 ng/mLBON SAMARITAN HOSPITALComment on above: Effective: 12/07/17 Methodology and/or Reference Range-Cutoff has changed. B[facility] SAMARITAN HOSPITALUrine Microscopicon 72-66-8737Xdwtdpwmpt cells LM Ql (Urine sed)3-5NormalSumma Health Wadsworth - Rittman Medical CenterComment on above:Performed By: #### UMIC #### [facility] [address] [facility] [address] Mozfw BacteriaFEWAbnormalNegativeSumma Health Wadsworth - Rittman Medical CenterComment on above:Performed By: #### UMIC #### [facility] [address] [place] [address] Axkxn IVJ2-9Jolpmu0-6Tiyrm [facility] Medical CenterComment on above:Performed By: #### UMIC #### [facility] [address] [place] [address] Lwkqc NTB1-7Txdkix3-7Fayeo Allen HospitalComment on above:Performed By: #### UMIC #### [facility] [address] [place] [address] ITZ B SURFACE ANTIGEN SCREENon 58-33-4603YVgKa ScreenNegativeNormal NegativeThe St. Vincent HospitalComment on above:Performed By: #### HBSANS ####[facility] [address] [place], [place] [address]Bx. Yilan ChangHEPATITIS C ANTIBODYon 84-43-1572Pyt C Virus Ab0.1 s/co ratioNormal 0.0-0.9The St. Vincent HospitalComsheridan community hospital on above:Result Comment: Negative: < 0.8 [...] Hepatitis C Virus (HCV) RNA, Diagnosis, EBONIE (052023) and Hepatitis C Virus (HCV) Antibody with reflex to Quantitative Real-time PCR ( [id number]).Performed By: #### HCV ####[facility] Jtmhkpuodd[address] [place], [place] [address]Dr.Devin SureshHIV 1 AND 2 WITH REFLEXon 00-56-6181BTP Screen 4th Generation wRfxNon-ReactiveNormalNon ReactiveThe St[facility] Comment on above:Result Comment: HIV NegativeHIV-1/HIV-2 antibodies and HIV-1 p24 antigen were NOT detected.There isno laboratory evidence of HIV infection. Performed By: #### HIV12 ####[facility] Jcrhyntokq[address] [place], [place] [address]Dr. Devin ChangRPR QUANTon 82-14-6038Cdkle Plasma Reagin, QuantNon-ReactiveNormalNonRea<1:1The St. Vincent HospitalComment on above: Result Comment: Please Note: This test does not meet current guidelines forscreening and diagnosis of syphilis. This test is intended forfollowing treatment response in patients being treated forsyphilis infection. To screen for syphilis infection, a reflexcascade that includes both RPR and a treponema- specific assayshould be utilized, such as Treponema pallidum (Syphilis)Screening Swain (801687) or Rapid Plasma Reagin (RPR) TestWith Reflex to Quantitative RPR and Confirmatory Treponemapallidum Antibodies (962298).Performed By: #### RPRQ ####[facility] Wwyqascuhg[address] [place], [place] [address]Dr. Devin SureshCBC AUTO DIFFon 72-43-7492OIOF #0.1 103/ulNormal0.0-0.1The St. Vincent HospitalComment on above:Performed By: #### CBC ####[facility] Bl[address]st[address]me[address] [place], [place] [address]Dr.Devin SureshBasophils/100 WBC (Bld)0.9 %Normal0.2-2.0The [facility]. Vincent HospitalComment on above:Performed By: #### CBC ####[facility] Psqdfvhdch139[address] [place], [place] [address]Dr.Tishemily ChangEO #0.2 103/ulNormal0.0-0.7The St. Vincent HospitalComment on above:Performed By: #### CBC ####[facility] Qgbjfqfqsb998[address] [place], [place] [address]Dr.Tishemily ChangEosinophils/100 WBC (Bld)2.8 %Normal 0.9-7.0The Dayhoit HospitalComment on above:Performed By: #### CBC ####[facility] Gvtxevviqg635[address] [place], [place] [address]Dr.Tishemily Suresh Erythrocyte distribution width (RBC) [Ratio]12.0 %Zypcne93.0-15.0The [facility] Vincent HospitalComment on above:Performed By: #### CBC ####[facility] Pxobpqtenn45[address] [place], [place] [address]Dr.Devin ChangHematocrit (Bld) [Volume fraction]34.6 %Critically low36.0-48.0The [facility] Vincent HospitalComment on above:Performed By: #### CBC ####[facility] Xkdasjhjdm879[address] [place], [place] [address]Dr.Tishemily ChangHemoglobin (Bld) [Mass/Vol]11.7 g/dL Critically low12.0-16.0The [facility]. Vincent HospitalComment on above:Performed By: #### CBC ####[facility] Ucwrgfgupg427[address] [place], [place] [address]Dr. Devin ChangIG #0.04 10e3/ulCritically high0.00-0.03The [facility] Vincent HospitalComment on above:Performed By: #### CBC ####[facility] Sgexiizynu628[address] [place], [place] [address]Dr.Devin ChangIG %0.6 %Critically high0.0-0.5The [facility]. Vincent HospitalComment on above:Performed By: #### CBC ####[facility] Vihfkdouwt57[address] [place], [place] [address]Dr.Devin ChangLYMPH #2.0 103/ulNormal1.2-3.8The St. Vincent HospitalComment on above:Performed By: #### CBC ####[facility] [address] [place] [address]Dr. Devin SureshLymphocytes/100 WBC (Bld)31.2 %Lyisar20.5-60.0[facility] Comment on above:Performed By: #### CBC ####[facility] Hbkpboxzda[address] [place] [address]Dr.Devin SureshMANUAL DIFF REQNONormalThe St. Vincent HospitalComment on above:Performed By: #### CBC ####[facility] Cutujijklr[address] [place] [address]Dr.Tishemily SureshH (RBC) [Entitic mass]30.8 huVyfyzd86.7-34.0The [facility] HospitalComment on above: Performed By: #### CBC ####[facility] Izwqngwwep[address] [place], [place] [address]Dr.Devin SureshMCHC (RBC) [Mass/Vol]33.8 g/dLNormal 29.9-35.2The [facility] HospitalComment on above:Performed By: #### CBC ####[facility] Mvpgdhclff310[address] [place], [place] [address]Dr. Tishemily SureshMCV (RBC) [Entitic vol]91.1 hLViahqd74.0-99.0The [facility] Comment on above:Performed By: #### CBC ####[facility] Jwtvevuxmw590[address] [place], [place] [address]Dr.Devin SureshMONO #0.4 103/ulNormal0.3-0.[address] [facility] HospitalComment on above:Performed By: #### CBC ####[facility] Xzabypprvu028[address] [place], [place] [address]Dr.Devin Suresh Monocytes/100 WBC (Bld)6.6 %Normal1.7-12.0The [facility] HospitalComment on above: Performed By: #### CBC ####[facility] Xtpukkkkfw279[address] [place], [place] [address]Dr.Devin SureshNEUT #3.7 103/ulNormal1.4-6.5The [facility] Kay HospitalComment on above:Performed By: #### CBC ####[facility] [address] [place] [address]Dr.Tishemily KerwinNeutrophils/100 WBC (Bld)57.9 %Hkaijn05.0-75.0The [facility] HospitalComment on above:Performed By: #### CBC ####[facility] Mknwokmouz608[address] [place], [place] [address]Dr.Devin SureshPlatelet mean volume (Bld) [Entitic vol]9.0 fLCritically low 9.5-13.5The Dayhoit HospitalComment on above:Performed By: #### CBC ####[facility] Zmjwpxscya808[address] [place], [place] [address]Dr. Devin SureshPLT272 103/gmUyrnqr210-661Siz St. Vincent HospitalComment on above: Performed By: #### CBC ####[facility] Yvuxheivhp17[address] [place], [place] [address]Dr.Devin SureshRBC3.80 106/ulCritically low4.20-5.40The [facility] HospitalComment on above:Performed By: #### CBC ####[facility] Ffgrttyajm410[address] [place], [place] [address]Dr.Devin SureshWBC6.4 103/ul Normal4.0-11.0The St. Vincent HospitalComment on above:Performed By: #### CBC ####[facility] Ykbhgrmyse677[address] [place], [place] [address]Dr. Devin Brantley 1/2 RAPID (EXPOSURE ONLY)on 24-92-3733YBW ABNMercy Health Fairfield HospitalComment on above:Performed By: #### RPDHIV ####[facility] Tzvwlslrne[address] [place], [place] [address]Dr. Devin Brantley AGNAltru Specialty Center HospitalComment on above:Performed By: #### RPDHIV ####[facility] Axagjedadq413[address] [place], [place] [address]Dr. Devin SureshINTERNAL CONTROLSWithin Normal LimitsNormalWithin Normal LimitsThe St. Vincent HospitalComment on above:Performed By: #### RPDHIV ####[facility] W[address]moondsgx[address] [place] [address]Dr. Yilan KerwinRAPID HIV INFOSEE [facility] Clinic Orthopedic CenterComment on above:Result Comment: This test is used for the initial screening of the exposure source. Confirmation ofall results will be obtained through reference lab testing.Performed By: #### RPDHIV ####[facility] Q[address]iwqno[address] [place] [address]Dr. Yilan ChangPROF 14(COMP METB)on 54-91-8893Kvwmxpe [Mass/Vol]2.7 g/dL Critically low3.4-5.0The St[facility] HospitalComment on above:Performed By: #### CMP ####[facility] Fclomhgncy60[address] [place], [place] [address]Dr. Yilan ChangAlbumin/Globulin [Mass ratio]0.9 {ratio}NormalLima Memorial Hospital Comment on above:Performed By: #### CMP ####[facility] Qjncyjjlxs9039[address] [place], [place] [address]Dr.Yilan ChangALP [Catalytic activity/Vol]98 U/ARjuvlf95-628Bdd St. Vincent HospitalComment on above:Performed By: #### CMP ####[facility] Mykjetnkrf6860[address] [place], [place] [address]Dr. Yilan ChangALT [Catalytic activity/Vol]17 U/TXenrku62-92Nve [facility] Comment on above:Performed By: #### CMP ####[facility] Qkdsihxdqb075[address] [place], [place] [address]Dr.Yilan ChangAnion gap [Moles/Vol]12.0 mmol/LNormalThe St. Vincent HospitalComment on above:Performed By: #### CMP ####[facility] Adgoetasfm8626[address] [place], [place] [address]Dr. Yilan ChangAST [Catalytic activity/Vol]6 U/LCritically yuv60-11Ras St. [facility] HospitalComment on above:Performed By: #### CMP ####[facility] Aykmwbtqzo4617[address] [place], [place] [address]Dr.Yilan ChangBilirubin [Mass/Vol]0.3 mg/dLNormal0.2-1.0The [facility] HospitalComment on above:Performed By: #### CMP ####[facility] Dvzgldupmp270[address] [place], [place] [address]Dr.Yilan ChangCalcium [Mass/Vol]8.1 mg/dLCritically low8.5-10.1The [facility] HospitalComment on above:Performed By: #### CMP ####[facility] Gzsdrslorb396[address] [place], [place] [address]Dr.Yilan ChangChloride [Moles/Vol]108 mmol/LCritically bmol28-883Ncn St[facility] HospitalComment on above: Performed By: #### CMP ####[facility] Rvipkyhhkn930[address] [place], [place] [address]Dr.Yilan ChangCO2 [Moles/Vol]25.4 mmol/LNormal 21.0-32.0The [facility] HospitalComment on above:Performed By: #### CMP ####[facility] Ehwdckekkc515[address] [place], [place] [address]Dr. Yilan ChangCreatinine [Mass/Vol]0.80 mg/dLNormal0.55-1.02[facility] Comment on above:Performed By: #### CMP ####[facility] Jryntzoqma1320[address] [place], [place] [address]Dr.Yilan ChangEGFR-AF NIUEAN>60Normal>=[address] [facility] HospitalComment on above:Performed By: #### CMP ####[facility] Tenunggpui7[address] [place], [place] [address]Dr.Yilan ChangEGFR- NON AF NIUEAN>60Normal>=60[facility] HospitalComment on above:Performed By: #### CMP ####[facility] Fmczlnguyj368[address] [place], [place] [address]Dr.Yilan ChangGlobulin (S) [Mass/Vol]3.0 g/dLNormalThe [facility] Comment on above:Performed By: #### CMP ####[facility] Emigpsxmxh739[address] [place], [place] [address]Dr.Yilan ChangGlucose [Mass/Vol]153 mg/dL Critically dyet93-253Dut St[facility] HospitalComment on above:Performed By: #### CMP ####[facility] Cbhoulsamt8735[address] [place], [place] [address]Dr. Devin ChangPotassium [Moles/Vol]3.4 mmol/LCritically low3.5-5.1The [facility] HospitalComment on above:Performed By: #### CMP ####[facility] Aunvschnqz[address] [place], [place] [address]Dr.Devin ChangProtein [Mass/Vol]5.7 g/dLCritically low6.4-8.2The [facility] HospitalComment on above: Performed By: #### CMP ####[facility] Yolhrpjpti356[address] [place], [place] [address]Dr.Devin ChangSodium [Moles/Vol]142 mmol/LNormal 136-145The St. [facility] HospitalComment on above:Performed By: #### CMP ####[facility] Bawnxvpfij270[address] [place], [place] [address]Dr.Devin ChangUrea nitrogen [Mass/Vol]16.0 mg/dLNormal7.0-18.0The St[facility] HospitalComment on above:Performed By: #### CMP ####[facility] Omdxcupvec98[address] [place], [place] [address]Dr.Tishlan ChangUrea nitrogen/Creatinine [Mass ratio] 20.0 mg/mgCleveland Clinic South Pointe HospitalComment on above:Performed By: #### CMP ####[facility] Gksehyvhuo8[address] [place], [place] [address]Dr. Devin ChangXR SACRUM_COCCYXon 51-18-1638HD SACRUM_COCCYXNormParkview HealthCHEMISTRYOrdered By: Desi Lord on 18-70-5011Jjrobdn [Mass/Vol]123 mg/tZFjwi32 - 99 mg/dLOKLAHOMA HOSPITAL ASSOCIATION POC SubsectionComment on above:Result Comment: Notified RN/MDPOC Device [id number] Interpretation CodeOKLAHOMA HOSPITAL ASSOCIATION POC SubsectionPOC User [id number] Interpretation CodeFT[facility] POC SubsectionPOC UsernameAJOHNIN, MARCYInvalid Interpretation CodeFT[facility] POC SubsectionGlucose [Mass/Vol]94 mg/gJBwjyiu60 - 99 mg/dLFTMC POC SubsectionComment on above:Result Comment: Notified RN/MDPOC Device [id number] Interpretation CodeFT[facility] POC SubsectionPOC User [id number] Interpretation CodeFT[facility] POC Subsection POC UsernameAUSTIN MARCYInvalid Interpretation CodeFT[facility] POC SubsectionCHEMISTRY Ordered By: Lab ROPUser on 48-71-6139Lwwqcdb [Mass/Vol]130 mg/vMBkuw71 - 99 mg/dLFTMC POC SubsectionComment on above:Result Comment: Cleaned MeterPOC Device [id number] Interpretation CodeFT[facility] POC SubsectionPOC User ID [id number] Interpretation CodeFT[facility] POC SubsectionPOC UsernameROPM DANEKAInvalid Interpretation CodeFT[facility] POC SubsectionCHEMISTRYOrdered By: SYSTEM SYSTEM on 24-82-4790UFK.beta subunit Qn9 m[IU]/mLHigh1 - 3 mIU/mLFTMC Remisol CEFEPIME:SUSC:PT:ISOLATE:ORDQN:MICon 94-08-5847Xhcgtbre DOMENIC [Susc]10,000 cfu/ml Proteus mirabilis 50,000 cfu/ml Staphylococcus speciesOhiohealth Doctors HospitalCHEMISTRY Ordered By: SYSTEM SYSTEM on 50-08-5534Ufbctqp [Mass/Vol]3.5 g/dLNormal3.3 - 5.0 gm/dLFTMC RemisolAlbumin/Globulin [Mass ratio]1.0 {ratio}Low1.1 - 2.2[facility] RemisolALP [Catalytic activity/Vol]95 [iU]/rXbzisg90 - 98 Int._Unit/LFTMC RemisolALT No additional P-5'-P [Catalytic activity/Vol]12 [iU]/dNormal6 - 46 Int._Unit/LFTMC RemisolAnion gap [Moles/Vol]13 mmol/LNormal6 - 16 mEq/LFTMC RemisolAST [Catalytic activity/Vol]14 [iU]/dNormal5 - 43 Int._Unit/LFTMC Remisol Bilirubin [Mass/Vol]0.7 mg/dLNormal0.0 - 1.1 mg/dLFT RemisolBilirubin.direct [Mass/Vol]0.1 mg/dLNormal0.1 - 0.4 mg/dLFTMC RemisolBilirubin.indirect [Mass or moles/Vol]0.6 mg/dLNormal0.1 - 0.9 mg/dLFTMC RemisolCalcium [Mass/Vol]9.4 mg/dL Normal8.9 - 11.1 mg/dLFTMC RemisolChloride [Moles/Vol]101 mmol/OLgadoe156 - 111 mmol/LFTMC RemisolCO2 [Moles/Vol]25 mmol/XDnkhhv21 - 31 mmol/LFTMC Remisol Creatinine [Mass/Vol]1.0 mg/dLNormal0.5 - 1.3 mg/dLFT RemisolGFR/1.73 sq M.predicted among blacks MDRD (S/P/Bld) [Vol rate/Area]mL/min/1.73 y2Pioddp >=59mL/min/1.73 m2OK[facility] Chem SGFR/1.73 sq M.predicted among non-blacks MDRD (S/P/Bld) [Vol rate/Area]60 mL/min/1.73 n5Buqqrx>=59mL/min/1.73 m2OK[facility] Chem S Globulin (S) [Mass/Vol]3.5 g/dLNormal1.4 - 4.0 gm/dLFTMC RemisolGlucose [Mass/Vol]260 mg/bTZaun27 - 199 mg/dLFTMC RemisolHCG.beta subunit Qn10 m[IU]/mL High1 - 3 mIU/mLFT RemisolPotassium [Moles/Vol]4.0 mmol/LNormal3.5 - 5.3 mmol/LFTMC RemisolProtein [Mass/Vol]7.0 g/dLNormal6.0 - 7.8 gm/dLFTMC Remisol Sodium [Moles/Vol]135 mmol/ESdryox902 - 145 mmol/LFTMC RemisolUrea nitrogen [Mass/Vol]23 mg/dLHigh5 - 21 mg/dLFTMC RemisolUrea nitrogen/Creatinine [Mass ratio]23 mg/wdTqfe97 - 20FT[facility] RemisolCefepime DOMENIC [Susc]on 59-76-9033ItwgpmaNationwide Children's HospitalHEMATOLOGYOrdered By: [employer] SYSTEM on 86-35-7199Gfrszkqet/100 WBC (Bld)1.1 %Normal0.0 - 2.0 %[facility] HemeAutoSSBasophils/Leukocytes Auto (Bld) [Pure # fraction]0.1 E9/LNormal0.0 - 0.2 E9/LFTMC HemeAutoSSEosinophils/100 WBC (Bld)2.7 %Normal0.0 - 8.0 %[facility] HemeAutoSSEosinophils/Leukocytes Auto (Bld) [Pure # fraction]0.2 E9/LNormal0.0 - 0.5 E9/LFTMC HemeAutoSSLymphocytes/100 WBC (Bld)28.6 %Hrquwb85.0 - 50.0 %[facility] HemeAutoSSLymphocytes/Leukocytes Auto (Bld) [Pure # fraction]2.2 E9/LNormal1.0 - 4.0 E9/LFTMC HemeAutoSSMonocytes/100 WBC (Bld)6.2 %Normal4.0 - 14.0 %[facility] HemeAutoSSMonocytes/Leukocytes Auto (Bld) [Pure # fraction]0.5 E9/LNormal0.2 - 1.0 E9/LFTMC HemeAutoSSNeutrophils/100 WBC (Bld)61.4 %Cjzwvp83.0 - 75.0 %[facility] HemeAutoSSNeutrophils/Leukocytes Auto (Bld) [Pure # fraction]4.6 E9/LNormal2.0 - 7.5 E9/LFTMC HemeAutoSSHEMATOLOGYOrdered By: Brisa Cuellar on 11-04-2021 Erythrocyte distribution width (RBC) [Ratio]12.4 %Gqwrso29.9 - 14.2 %[facility] HemeAutoSSHematocrit (Bld) [Volume fraction]37.7 %Bibizh29.0 - 46.0 %[facility] HemeAutoSSHemoglobin (Bld) [Mass/Vol]13.2 g/cEAdcsrc21.0 - 16.0 gm/dLFTMC HemeAutoSSMCH (RBC) [Entitic mass]31.3 cdSbybgs65.0 - 34.0 pgFC HemeAutoSSMCHC (RBC) [Mass/Vol]35.1 g/kJBjfene96.4 - 36.0 gm/dLFT HemeAutoSSMCV (RBC) [Entitic vol]89.1 yKUzxelb99.0 - 100.0 fLOKLAHOMA HOSPITAL ASSOCIATION HemeAutoSSPlatelet mean volume (Bld) [Entitic vol]6.9 fLNormal6.4 - 10.8 fLOKLAHOMA HOSPITAL ASSOCIATION HemeAutoSSPlatelets (Bld) [#/Vol]373.0 E9/JJwwiie896.0 - 500.0 E9/LFROGER MILLS [facility] HemeAutoSSRBC (Bld) [#/Vol]4.2 E12/LLow4.3 - 5.9 E12/LFROGER MILLS [facility]ORIAL [facility] [place] HemeAutoSSWBC corrected for nucl RBC Auto (Bld) [#/Vol]7.5 E9/LNormal4.0 - 11.0 E9/LFROGER MILLS [facility]ORIAL [facility] [place] HemeAutoSSURINALYSISOrdered By: Sharla Villagomez on 22-80-5360Fyuysjer LM Ql (Urine sed)2+ /HPFInvalid Interpretation CodeTrace/HPFOKLAHOMA HOSPITAL ASSOCIATION UA Auto SSBilirubin Ql (U)Negative (11/04/21 12:55 PM)NormalNegativeOKLAHOMA HOSPITAL ASSOCIATION UA Auto SSClarity (U)Slightly Cloudy *ABN* (11/04/21 12:55 PM)Invalid Interpretation CodeClearFROGER MILLS [facility]OR[facility] [place] UA Auto SSColor (U)Yellow (11/04/21 12:55 PM)NormalYellowOKLAHOMA HOSPITAL ASSOCIATION UA Auto SSCrystals LM Ql (Urine sed)Present (11/04/21 12:55 PM)NormalOKLAHOMA HOSPITAL ASSOCIATION UA Auto SSEpithelial cells.squamous LM.HPF (Urine sed) [#/Area]5-8 /HPFNormal0-2/HPFFT UA Auto SSGlucose Test strip (U) [Mass/Vol]3+ *ABN* (11/04/21 12:55 PM)Invalid Interpretation CodeNegativeOKLAHOMA HOSPITAL ASSOCIATION UA Auto SSHemoglobin Ql (U)Trace *ABN* (11/04/21 12:55 PM)Invalid Interpretation CodeNegativeOKLAHOMA HOSPITAL ASSOCIATION UA Auto SSKetones (U) [Mass/Vol]Negative (11/04/21 12:55 PM)NormalNegativeOKLAHOMA HOSPITAL ASSOCIATION UA Auto SSLithium.plasma/[place].RBC (Bld) [Mass ratio]0-3 /HPFNormal0-3/HPFOKLAHOMA HOSPITAL ASSOCIATION UA Auto SSMucus Ql (Urine sed)Trace (11/04/21 12:55 PM)NormalOKLAHOMA HOSPITAL ASSOCIATION UA Auto SSNitrite Ql (U)Positive *ABN* (11/04/21 12:55 PM)Invalid Interpretation CodeNegativeOKLAHOMA HOSPITAL ASSOCIATION UA Auto SSpH (U)6.0 *NA* (11/04/21 12:55 PM)Invalid Interpretation Code5.0 - 9.0OK[facility] UA Auto SSProtein (U) [Mass/Vol]Negative (11/04/21 12:55 PM)NormalNegativeOKLAHOMA HOSPITAL ASSOCIATION UA Auto SSSpecific gravity (U) [Rel density]>=1.030 *NA* (11/04/21 12:55 PM)Invalid Interpretation Code1.005 - 1.030OK[facility] UA Auto SSUA Spec DescClean Catch (11/04/21 12:55 PM)NormalOKLAHOMA HOSPITAL ASSOCIATION UA Auto SSUrobilinogen Qn (U)0.3003020 {Sheyla'U}/dLNormal0.0 - 1.0 EU/dLOKLAHOMA HOSPITAL ASSOCIATION UA Auto SSWBC Auto Ql (U)Negative (11/04/21 12:55 PM)NormalNegativeOKLAHOMA HOSPITAL ASSOCIATION UA Auto SSWBC casts LM.LPF (Urine sed) [#/Area]0-3 (11/04/21 12:55 PM)NormalOKLAHOMA HOSPITAL ASSOCIATION UA Auto SSWBC LM.HPF (Urine sed) [#/Area]0-5 /HPF Normal0-5/HPFOKLAHOMA HOSPITAL ASSOCIATION UA Auto SSCHEMISTRYOrdered By: SYSTEM SYSTEM on 10-09-2021 Anion gap [Moles/Vol]14 mmol/LNormal6 - 16 mEq/LFTMC RemisolCalcium [Mass/Vol] 8.5 mg/dLLow8.9 - 11.1 mg/dLOKLAHOMA HOSPITAL ASSOCIATION RemisolChloride [Moles/Vol]103 mmol/HZwrcgj051 - 111 mmol/LFTMC RemisolCO2 [Moles/Vol]22 mmol/HYuelql58 - 31 mmol/LFTMC Remisol Creatinine [Mass/Vol]1.0 mg/dLNormal0.5 - 1.3 mg/dLFT RemisolGFR/1.73 sq M.predicted among blacks MDRD (S/P/Bld) [Vol rate/Area]mL/min/1.73 w5Ububsa >=59mL/min/1.73 m2FT Chem SGFR/1.73 sq M.predicted among non-blacks MDRD (S/P/Bld) [Vol rate/Area]60 mL/min/1.73 b9Yvqdyw>=59mL/min/1.73 m2FT Chem S Glucose [Mass/Vol]158 mg/eLRokqny06 - 199 mg/dLFT RemisolPotassium [Moles/Vol] 3.7 mmol/LNormal3.5 - 5.3 mmol/LFTMC RemisolSodium [Moles/Vol]135 mmol/LNormal 135 - 145 mmol/LFTMC RemisolUrea nitrogen [Mass/Vol]13 mg/dLNormal5 - 21 mg/dL [facility] RemisolUrea nitrogen/Creatinine [Mass ratio]13 mg/ufIdfsse06 - 20FT RemisolHEMATOLOGYOrdered By: SYSTEM SYSTEM on [id number]/100 WBC (Bld) 0.6 %Normal0.0 - 2.0 %[facility] HemeAutoSSBasophils/Leukocytes Auto (Bld) [Pure # fraction]0.0 E9/LNormal0.0 - 0.2 E9/LFTMC HemeAutoSSEosinophils/100 WBC (Bld)0.4 %Normal0.0 - 8.0 %[facility] HemeAutoSSEosinophils/Leukocytes Auto (Bld) [Pure # fraction]0.0 E9/LNormal0.0 - 0.5 E9/LFTMC HemeAutoSSLymphocytes/100 WBC (Bld) 15.5 %Quemyx17.0 - 50.0 %[facility] HemeAutoSSLymphocytes/Leukocytes Auto (Bld) [Pure # fraction]1.0 E9/LNormal1.0 - 4.0 E9/LFTMC HemeAutoSSMonocytes/100 WBC (Bld)8.5 %Normal4.0 - 14.0 %[facility] HemeAutoSSMonocytes/Leukocytes Auto (Bld) [Pure # fraction]0.5 E9/LNormal0.2 - 1.0 E9/LFTMC HemeAutoSSNeutrophils/100 WBC (Bld) 75.0 %Vmzldz24.0 - 75.0 %[facility] HemeAutoSSNeutrophils/Leukocytes Auto (Bld) [Pure # fraction]4.8 E9/LNormal2.0 - 7.5 E9/LFTMC HemeAutoSSHEMATOLOGYOrdered By: Laura Obrien on 17-97-2200Xftwrrlqfpp distribution width (RBC) [Ratio]12.9 %Rltcmc51.9 - 14.2 %[facility] HemeAutoSSHematocrit (Bld) [Volume fraction]36.9 %Ayshdu97.0 - 46.0 %[facility] HemeAutoSSHemoglobin (Bld) [Mass/Vol]13.1 g/tTJwysvx62.0 - 16.0 gm/dL FT HemeAutoSSMCH (RBC) [Entitic mass]31.9 rtCmdpla34.0 - 34.0 pgFTMC HemeAutoSSMCHC (RBC) [Mass/Vol]35.5 g/aGTrxdqe79.4 - 36.0 gm/dLFTMC HemeAutoSS MCV (RBC) [Entitic vol]89.6 lNVrbiov82.0 - 100.0 fLFT HemeAutoSSPlatelet mean volume (Bld) [Entitic vol]7.0 fLNormal6.4 - 10.8 fLFTMC HemeAutoSSPlatelets (Bld) [#/Vol]284.0 E9/SLhpumk244.0 - 500.0 E9/LFTMC HemeAutoSSRBC (Bld) [#/Vol] 4.1 E12/LLow4.3 - 5.9 E12/LFTMC HemeAutoSSWBC corrected for nucl RBC Auto (Bld) [#/Vol]6.4 E9/LNormal4.0 - 11.0 E9/LFTMC HemeAutoSSMICRO OTHER TESTSOrdered By: Shannen Sosa on 20-13-8249Clgvgujubt A AgNegative (10/09/21 4:48 PM)NormalNegativeOKLAHOMA HOSPITAL ASSOCIATION Man SeroInfluenzae B AgNegative (10/09/21 4:48 PM)NormalNegativeFT Man SeroRapid COV Int NEG CtlPass (10/09/21 4:48 PM)NormalFT Man SeroRapid COV Int POS CtlPass (10/09/21 4:48 PM)NormalOKLAHOMA HOSPITAL ASSOCIATION Man SeroSARS-CoV+SARS-CoV-2 (COVID-19) Ag IA.rapid Ql (Resp)Not Detected (10/09/21 4:48 PM)NormalNot DetectedFT Man SeroSEROLOGYOrdered By: Shannen Sosa on 84-06-3665Jcvk hCG QlPositive (10/09/21 4:48 PM)NormalOKLAHOMA HOSPITAL ASSOCIATION Man SeroCHEMISTRYOrdered By: SYSTEM SYSTEM on 58-46-4756Onzcfza [Mass/Vol]3.8 g/dLNormal3.3 - 5.0 gm/dLOKLAHOMA HOSPITAL ASSOCIATION Remisol Albumin/Globulin [Mass ratio]1.2 {ratio}Normal1.1 - 2.2[facility] RemisolALP [Catalytic activity/Vol]89 [iU]/xQtalkg81 - 98 Int._Unit/LFT[facility] RemisolALT No additional P-5'-P [Catalytic activity/Vol]13 [iU]/dNormal6 - 46 Int._Unit/LFT[facility] RemisolAnion gap [Moles/Vol]13 mmol/LNormal6 - 16 mEq/L[facility] RemisolAST [Catalytic activity/Vol]15 [iU]/dNormal5 - 43 Int._Unit/LFT[facility] RemisolBilirubin [Mass/Vol]0.7 mg/dLNormal0.0 - 1.1 mg/dLFT RemisolCalcium [Mass/Vol]9.0 mg/dL Normal8.9 - 11.1 mg/dLOKLAHOMA HOSPITAL ASSOCIATION RemisolChloride [Moles/Vol]105 mmol/PEcmgpb502 - 111 mmol/LFTMC RemisolCholesterol [Mass/Vol]188 mg/qJVzngsy379 - 200 mg/dLFTMC RemisolCholesterol in HDL [Mass/Vol]48 mg/dLInvalid Interpretation CodeFT RemisolCholesterol in LDL [Mass/Vol]119 mg/dLNormal<=129mg/dLFTMC Remisol Cholesterol in VLDL [Mass/Vol]22 mg/dLNormal7 - 40 mg/dLFTMC RemisolCO2 [Moles/Vol]23 mmol/ZLxexwk27 - 31 mmol/LFTMC RemisolCreatinine [Mass/Vol]1.0 mg/dLNormal0.5 - 1.3 mg/dLFTMC RemisolGFR/1.73 sq M.predicted among blacks MDRD (S/P/Bld) [Vol rate/Area]mL/min/1.73 a7Fdcybo>=59mL/min/1.73 m2FT Chem S GFR/1.73 sq M.predicted among non-blacks MDRD (S/P/Bld) [Vol rate/Area]60 mL/min/1.73 m4Qnljss>=59mL/min/1.73 m2FT Chem SGlobulin (S) [Mass/Vol]3.2 g/dL Normal1.4 - 4.0 gm/dLFT RemisolGlucose [Mass/Vol]71 mg/vPEwblof36 - 199 mg/dL FT RemisolPotassium [Moles/Vol]2.9 mmol/LLow3.5 - 5.3 mmol/LFTMC Remisol Protein [Mass/Vol]7.0 g/dLNormal6.0 - 7.8 gm/dLFTMC RemisolSodium [Moles/Vol]138 mmol/TYizvjx371 - 145 mmol/LFTMC RemisolTriglyceride [Mass/Vol]108 mg/dLNormal <=149mg/dLFTMC RemisolTSH Qn5.16 m[IU]/LNormal0.34 - 5.60 mcIU/mLFTMC Remisol Urea nitrogen [Mass/Vol]19 mg/dLNormal5 - 21 mg/dLFTMC RemisolUrea nitrogen/Creatinine [Mass ratio]19 mg/ucMqexxo51 - 20FT[facility] RemisolCHEMISTRY Ordered By: Sharla Villagomez on 89-21-0669KaR2v (Bld) [Mass fraction]9.1 %High <=5.9%[facility] ChemAutoSSCHEMISTRYOrdered By: Breanna Hammond on 67-33-4845Lvrnvnd DL <= 20 mg/L (U) [Mass/Vol]32.4 microgram/mLHigh0.0 - 19.0 mcg/mLFTMC Remisol HEMATOLOGYOrdered By: SYSTEM SYSTEM on 66-82-7086Cfchnjfks/100 WBC (Bld)0.9 % Normal0.0 - 2.0 %[facility] HemeAutoSSBasophils/Leukocytes Auto (Bld) [Pure # fraction]0.1 E9/LNormal0.0 - 0.2 E9/LFTMC HemeAutoSSEosinophils/100 WBC (Bld)1.5 %Normal0.0 - 8.0 %[facility] HemeAutoSSEosinophils/Leukocytes Auto (Bld) [Pure # fraction]0.1 E9/LNormal0.0 - 0.5 E9/LFTMC HemeAutoSSLymphocytes/100 WBC (Bld) 28.5 %Udavza05.0 - 50.0 %[facility] HemeAutoSSLymphocytes/Leukocytes Auto (Bld) [Pure # fraction]2.5 E9/LNormal1.0 - 4.0 E9/LFT[facility] HemeAutoSSMonocytes/100 WBC (Bld)5.8 %Normal4.0 - 14.0 %[facility] HemeAutoSSMonocytes/Leukocytes Auto (Bld) [Pure # fraction]0.5 E9/LNormal0.2 - 1.0 E9/LFT[facility] HemeAutoSSNeutrophils/100 WBC (Bld) 63.3 %Byizbm67.0 - 75.0 %[facility] HemeAutoSSNeutrophils/Leukocytes Auto (Bld) [Pure # fraction]5.6 E9/LNormal2.0 - 7.5 E9/LFT[facility] HemeAutoSSHEMATOLOGYOrdered By: Brisa Cuellar on 57-10-2927Iiiydskctar distribution width (RBC) [Ratio]13.1 % Nltdka80.9 - 14.2 %[facility] HemeAutoSSHematocrit (Bld) [Volume fraction]40.6 %Normal 34.0 - 46.0 %[facility] HemeAutoSSHemoglobin (Bld) [Mass/Vol]13.7 g/oSRlsigx05.0 - 16.0 gm/dLFTMC HemeAutoSSMCH (RBC) [Entitic mass]31.2 fiIfczcq77.0 - 34.0 pgFROG[facility] HemeAutoSSMCHC (RBC) [Mass/Vol]33.8 g/vDXwbmqv87.4 - 36.0 gm/dLFT HemeAutoSS MCV (RBC) [Entitic vol]92.4 mNOzxhlk25.0 - 100.0 fLOKLAHOMA HOSPITAL ASSOCIATION HemeAutoSSPlatelet mean volume (Bld) [Entitic vol]7.9 fLNormal6.4 - 10.8 fLOKLAHOMA HOSPITAL ASSOCIATION HemeAutoSSPlatelets (Bld) [#/Vol]298.0 E9/VEepphh945.0 - 500.0 E9/LFC HemeAutoSSComment on above: Result Comment: Platelet count verified using smear estimate Slide reviewed by FIR.RBC (Bld) [#/Vol]4.4 E12/LNormal4.3 - 5.9 E12/LFC HemeAutoSSWBC corrected for nucl RBC Auto (Bld) [#/Vol]8.9 E9/LNormal4.0 - 11.0 E9/LFROGER [facility]ILL[facility] [place] HemeAutoSSCHEMISTRYOrdered By: SYSTEM SYSTEM on 82-16-1243Zhety gap [Moles/Vol]17 mmol/LHigh6 - 16 mEq/LFTMC RemisolCalcium [Mass/Vol]9.0 mg/dL Normal8.9 - 11.1 mg/dLOKLAHOMA HOSPITAL ASSOCIATION RemisolChloride [Moles/Vol]104 mmol/DTtmqjg960 - 111 mmol/LFTMC RemisolCO2 [Moles/Vol]25 mmol/XUxeons73 - 31 mmol/LFTMC Remisol Creatinine [Mass/Vol]1.0 mg/dLNormal0.5 - 1.3 mg/dLFT RemisolGFR/1.73 sq M.predicted among blacks MDRD (S/P/Bld) [Vol rate/Area]mL/min/1.73 w3Gxmqhw >=59mL/min/1.73 m2OK[facility] Chem SGFR/1.73 sq M.predicted among non-blacks MDRD (S/P/Bld) [Vol rate/Area]60 mL/min/1.73 z9Rerrxm>=59mL/min/1.73 m2OK[facility] Chem S Glucose [Mass/Vol]228 mg/lASimx69 - 199 mg/dLFT RemisolPotassium [Moles/Vol] 3.5 mmol/LNormal3.5 - 5.3 mmol/LFTMC RemisolSodium [Moles/Vol]142 mmol/LNormal 135 - 145 mmol/LFC RemisolUrea nitrogen [Mass/Vol]21 mg/dLNormal5 - 21 mg/dL [facility] RemisolUrea nitrogen/Creatinine [Mass ratio]21 mg/jzZsqp74 - 20FT Remisol HEMATOLOGYOrdered By: Brisa Cuellar on 64-49-6054Viezvkbkpai distribution width (RBC) [Ratio]13.2 %Dfvaun32.9 - 14.2 %[facility] HemeAutoSSHematocrit (Bld) [Volume fraction]38.8 %Zkabnl34.0 - 46.0 %[facility] HemeAutoSSHemoglobin (Bld) [Mass/Vol]13.6 g/dLDcrbqp26.0 - 16.0 gm/dLFT HemeAutoSSMCH (RBC) [Entitic mass]31.5 pgNormal 27.0 - 34.0 pgFTM HemeAutoSSMCHC (RBC) [Mass/Vol]35.0 g/cPYubdky00.4 - 36.0 gm/dLFTMC HemeAutoSSMCV (RBC) [Entitic vol]90.2 bAGcqwzj67.0 - 100.0 fLOKLAHOMA [facility]PITAL ASSOCIATION HemeAutoSSPlatelet mean volume (Bld) [Entitic vol]7.5 fLNormal6.4 - 10.8 fLOKLAHOMA [facility] ASSOCIATION HemeAutoSSPlatelets (Bld) [#/Vol]358.0 E9/JNyujap236.0 - 500.0 E9/LFTMC HemeAutoSSRBC (Bld) [#/Vol]4.3 E12/LNormal4.3 - 5.9 E12/LFTMC HemeAutoSSWBC corrected for nucl RBC Auto (Bld) [#/Vol]7.5 E9/LNormal4.0 - 11.0 E9/LFTMC HemeAutoSSCOVID Quick Testingon 17-09-8436XpyaftSmjjojyiGhirt Spacedeck Other Basic Metabolic Panelon 98-53-4746Jgsud gap [Moles/Vol]9 mmol/LLow10 - 20 mmol/LOhioHealthCalcium [Mass/Vol]7.8 mg/dLLow8.4 - 10.2 mg/dLOhioHealthChloride [Moles/Vol]119 mmol/LHigh98 - 108 mmol/L OhioHealthCreatinine [Mass/Vol]0.72 mg/dL0.40 - 1.10OhioHealthGFR/1.73 sq M predicted among non-blacks MDRD (S/P/Bld) [Vol rate/Area]The eGFR should be used for monitoring renal function only and not for medication dosing.[facility] GFR/1.73 sq M.predicted CKD-EPI (S/P/Bld) [Vol rate/Area]103>=60 mL/min/1.73 m2 OhioHealthGlucose [Mass/Vol]70 mg/dL65 - 99 mg/dLOhioHealthHCO3 [Moles/Vol]22 mmol/L21 - 32 mmol/LOhioHealthInterpretation and review of laboratory results AbnormalOhioHealthPotassium [Moles/Vol]3.5 mmol/L3.5 - 5.1 mmol/LOhioHealth Sodium [Moles/Vol]146 mmol/FXunh036 - 145 mmol/LOhioHealthUrea nitrogen [Mass/Vol]8 mg/dL8 - 25 mg/dLOhioHealthUrea nitrogen/Creatinine [Mass ratio]11.1 mg/mgOhioHealthCBCon 15-26-3951Gztpgjqlfjv distribution width (RBC) [Entitic vol]12.2 %11.6 - 14.8 %OhioHealthHematocrit (Bld) [Volume fraction]35.1 %Low36 - 46 %OhioHealthHemoglobin (Bld) [Mass/Vol]11.4 g/dLLow12 - 16 g/dLOhioHealth Interpretation and review of laboratory resultsAbnormalOhioHealthMCH (RBC) [Entitic mass]30.6 pg26 - 34 pgOhioHealthMCHC (RBC) [Mass/Vol]32.5 g/dL31 - 37 g/dLOhioHealthMCV (RBC) [Entitic vol]94.4 fL80 - 100 fLOhioHealthNucleated RBC (Bld) [#/Vol]0.00 10*3/uLOhioHealthNucleated RBC/100 WBC (Bld) [Ratio]0.0 % CaliforniaHealthPlatelet mean volume (Bld) [Entitic vol]9.4 fL9.4 - 12.4 fLOhioHealth Platelets (Bld) [#/Vol]191 10*3/uLOhioHealthRBC (Bld) [#/Vol]3.72 10*6/uLLow OhioHealthWBC (Bld) [#/Vol]5.46 10*3/uLOhioHealthLactic Acid, Plasmaon 38-13-5488Vymmiugcryvubc and review of laboratory resultsNormalOhioHealthLactate [Moles/Vol]1.9 mmol/L0.6 - 2 mmol/LOhioHealthMagnesiumon 17-23-3936Wcqjghqsq [Mass/Vol]1.8 mg/dL1.6 - 2.4 mg/dLOhioHealthOtheron 23-42-2396Sfcjrbakggmvtd and review of laboratory resultsNormalOhioHealthPOC Glucoseon 57-21-1119Lgqfpwh [Mass/Vol]201 mg/mKYbdh89 - 99 mg/dLOhioHealthInterpretation and review of laboratory resultsAbnormalOhioHealthGlucose [Mass/Vol]143 mg/xZDbyn72 - 99 mg/dL OhioHealthInterpretation and review of laboratory resultsAbnormalOhioHealth Glucose [Mass/Vol]93 mg/dL65 - 99 mg/dLOhioHealthTSHon 53-71-5632Ffneqrlgpkiuux and review of laboratory resultsNormalOhioHealthTSH Qn2.35 m[IU]/LOhioHealth Basic Metabolic Panelon 82-79-1343Qpche gap [Moles/Vol]11 mmol/L10 - 20 mmol/L OhioHealthCalcium [Mass/Vol]7.8 mg/dLLow8.4 - 10.2 mg/dLOhioHealthChloride [Moles/Vol]115 mmol/LHigh98 - 108 mmol/LOhioHealthCreatinine [Mass/Vol]0.90 mg/dL0.40 - 1.10OhioHealthGFR/1.73 sq M predicted among non-blacks MDRD (S/P/Bld) [Vol rate/Area]The eGFR should be used for monitoring renal function only and not for medication dosing.OhioHealthGFR/1.73 sq M.predicted CKD-EPI (S/P/Bld) [Vol rate/Area]79>=60 mL/min/1.73 g5SkpjMqfchvVficfhv [Mass/Vol]107 mg/tSYdtp54 - 99 mg/dLOhioHealthHCO3 [Moles/Vol]22 mmol/L21 - 32 mmol/L OhioHealthInterpretation and review of laboratory resultsAbnormalOhioHealth Potassium [Moles/Vol]3.7 mmol/L3.5 - 5.1 mmol/LOhioHealthSodium [Moles/Vol]144 mmol/L135 - 145 mmol/LOhioHealthUrea nitrogen [Mass/Vol]14 mg/dL8 - 25 mg/dL OhioHealthUrea nitrogen/Creatinine [Mass ratio]15.6 mg/mgOhioHealthCBC WITH AUTO DIFFERENTIALon 49-02-6219Uznkohrao (Bld) [#/Vol]0.08 10*3/uLOhioHealth Basophils/100 WBC (Bld)1.1 %OhioHealthEosinophils [...] resultsAbnormalOhioHealthLymphocytes (Bld) [#/Vol]2.82 10*3/uL OhioHealthLymphocytes/100 WBC (Bld)39.6 %[facility] HospitalMCH (RBC) [Entitic mass]31.1 pg26 - 34 pgOhioHealthMCHC (RBC) [Mass/Vol]32.8 g/dL31 - 37 g/dLOhioHealthMCV (RBC) [Entitic vol]95.0 fL80 - 100 fLOhioHealthMonocytes (Bld) [#/Vol]0.45 10*3/uLOhioHealthMonocytes/100 WBC (Bld)6.3 %OhioHealthNeutrophils (Bld) [#/Vol] 3.59 10*3/uLOhioHealthNeutrophils/100 WBC (Bld)50.5 %OhioHealthNucleated RBC (Bld) [#/Vol]0.00 10*3/uLOhioHealthNucleated RBC/100 WBC (Bld) [Ratio]0.0 % [facility] HospitalPlatelet mean volume (Bld) [Entitic vol]9.7 fL9.4 - 12.4 fLOhioHealth Platelets (Bld) [#/Vol]234 10*3/uLOhioHealthRBC (Bld) [#/Vol]3.79 10*6/uLLow OhioHealthWBC (Bld) [#/Vol]7.12 10*3/uLOhioHealthHemoglobin A1con 06-04-2020 Average glucose Estimated from glycated hemoglobin mass conc (Bld)246 mg/dLHigh 68 - 114 mg/tGKjonYykjgrDyQ2f (Bld) [Mass fraction]10.2 %High4 - 5.6 %[facility] Interpretation and review of laboratory resultsAbnormalOhioHealthNormal: 4.0% - 5.6% Increased risk for diabetes: 5.7% - 6.4% Diabetes: >= 6.5% Pediatrics: No established reference range Estimated average glucose: 68-114 mg/dLSub[facility] Magnesiumon 40-87-9752Mamxbmptmrxpid and review of laboratory resultsNormal [facility] HospitalMagnesium [Mass/Vol]1.6 mg/dL1.6 - 2.4 mg/dLSuburban Community Hospital & Brentwood HospitalPOC Glucoseon 76-71-7875Ewxzokf [Mass/Vol]79 mg/dL65 - 99 mg/dLOhioHealthInterpretation and review of laboratory resultsNormalOhioHealthGlucose [Mass/Vol]108 mg/xPDsia87 - 99 mg/dLOhioHealthInterpretation and review of laboratory resultsAbnormal OhioHealthGlucose [Mass/Vol]134 mg/lQSnqt12 - 99 mg/dLOhioHealthInterpretation and review of laboratory resultsAbnormalOhioHealthGlucose [Mass/Vol]118 mg/dL High65 - 99 mg/dLOhioHealthInterpretation and review of laboratory results AbnormalOhioHealthReflex Lactic Acid, Plasmaon 84-12-4014Jgujqnqwcvlrzy and review of laboratory resultsAbnormalOhioHealthLactate [Moles/Vol]2.1 mmol/LHigh 0.6 - 2 mmol/LOhioHealthCBC WITH AUTO DIFFERENTIALon 59-08-7882Zjyjrhtja (Bld) [#/Vol]0.06 10*3/uLOhioHealthBasophils/100 WBC (Bld)0.8 %OhioOhio Valley Surgical HospitalEosinophils (Bld) [#/Vol]0.11 10*3/uLOhioHealthEosinophils/100 WBC (Bld)1.4 %[facility] Erythrocyte distribution width (RBC) [Entitic vol]12.3 %11.6 - 14.8 %[facility] Hematocrit (Bld) [Volume fraction]38.8 %36 - 46 %[facility] HospitalHemoglobin (Bld) [Mass/Vol]13.1 g/dL12 - 16 g/dLOhioHealthImmature granulocytes (Bld) [#/Vol]0.02 10*3/uLOhioHealthImmature granulocytes/100 WBC (Bld)0.30 %OhioHealthComment on above:The IG parameter is the percentage of metamyelocytes, myelocytes and promyelocytes. An immature granulocyte count (IG) of 1% or more suggests the possibility of infection, an IG count of 3% is very likely related to an infection.Lymphocytes (Bld) [#/Vol]1.86 10*3/uLOhioHealthLymphocytes/100 WBC (Bld)24.1 %OhioOhio Valley Surgical HospitalMCH (RBC) [Entitic mass]30.8 pg26 - 34 pgOhioHealthMCHC (RBC) [Mass/Vol]33.8 g/dL31 - 37 g/dLOhioHealthMCV (RBC) [Entitic vol]91.1 fL80 - 100 fLOhioHealthMonocytes (Bld) [#/Vol]0.37 10*3/uLOhioHealthMonocytes/100 WBC (Bld)4.8 %OhioHealthNeutrophils (Bld) [#/Vol]5.29 10*3/uLOhioHealth Neutrophils/100 WBC (Bld)68.6 %OhioHealthNucleated RBC (Bld) [#/Vol]0.00 10*3/uL OhioHealthNucleated RBC/100 WBC (Bld) [Ratio]0.0 %OhioHealthPlatelet mean volume (Bld) [Entitic vol]9.7 fL9.4 - 12.4 fLOhioHealthPlatelets (Bld) [#/Vol]253 10*3/uLOhioHealthRBC (Bld) [#/Vol]4.26 10*6/uLOhioHealthWBC (Bld) [#/Vol]7.71 10*3/uLOhioHealthCOVID-19, Molecularon 82-56-0443Etyhtyzylpckwf and review of laboratory gipiqkmFdkjvpPbhyZwifekYHID-GtC-7Acl DetectedNot DetectedOhioHealth Comment on above:This test was [...] at the following links: For Healthcare Providers: https://www.fda.gov/media/722082/download For Patients: https://www.fda.gov/media/176502/download CRITICAL CAREon 13-46-2889Zscmgtalha Hankins MD 06/03/2020 4:35 PM Critical Care [...] above. Wo rkstation ID: [id number], Rad In [facility] - 06/03/2020 3:31 PM EST [...] seen. No focal fluid density collection is identified.CaliforniaHealthChem 7on 40-52-1691Zlpub gap [Moles/Vol]11 mmol/L10 - 20 mmol/LOhioHealthChloride [Moles/Vol]109 mmol/LHigh98 - 108 mmol/LOhioHealth Creatinine [Mass/Vol]1.28 mg/dLHigh0.40 - 1.10OhioHealthGFR/1.73 sq M predicted among non-blacks MDRD (S/P/Bld) [Vol rate/Area]The eGFR should be used for monitoring renal function only and not for medication dosing.OhioHealthGFR/1.73 sq M.predicted CKD-EPI (S/P/Bld) [Vol rate/Area]51Low>=60 mL/min/1.73 m2 OhioHealthGlucose [Mass/Vol]288 mg/wFYdwk98 - 99 mg/dLOhioHealthHCO3 [Moles/Vol] 27 mmol/L21 - 32 mmol/LOhioHealthInterpretation and review of laboratory results AbnormalOhioHealthPotassium [Moles/Vol]3.9 mmol/L3.5 - 5.1 mmol/LOhioHealth Sodium [Moles/Vol]143 mmol/L135 - 145 mmol/LOhioHealthUrea nitrogen [Mass/Vol]16 mg/dL8 - 25 mg/dLOhioHealthUrea nitrogen/Creatinine [Mass ratio]12.5 mg/mg OhioHealthLactic Acid, Plasmaon 84-95-6269Dvdpcvhqlixuyg and review of laboratory resultsAbnormalOhioHealthLactate [Moles/Vol]2.6 mmol/LHigh0.6 - 2 mmol/LOhioHealthOtheron 12-61-2948Vbfnn TubeHold for add-ons.OhioHealthComment on above:Auto resulted.POC Glucoseon 21-18-2013Gvpetho [Mass/Vol]288 mg/gNZuzs76 - 99 mg/dLOhioHealthInterpretation and review of laboratory resultsAbnormal [facility] W/DIFFon 77-96-5551INN BASOPHILS0.1 10*3/uLNormal0.0-0.2The [facility] HospitalComment on above:Performed By: #### [id number] #### [facility] [address] [place] [address], USAABS IMM GRANS0.0 10*3/uLNormal0.0-0.2The [facility] HospitalComment on above:Performed By: #### [id number] #### [facility] [address] [place] [address], USAABS NEUTROPHILS7.5 10*3/uLNormal1.6-7.6The [facility] HospitalComment on above:Performed By: #### [id number] #### [facility] [address] [place] [address], USABasophils/100 WBC (Bld)0.7 %Normal0.0-1.0The [facility] HospitalComment on above:Performed By: #### [id number] #### [facility] [address] [place] [address], USAEosinophils (Bld) [#/Vol]0.2 10*3/uLNormal0.0-0.5The [facility] HospitalComment on above:Performed By: #### [id number] #### [facility] [address] [place] [address], USAEosinophils/100 WBC (Bld)1.5 %Normal0.0-6.0The [facility] HospitalComment on above:Performed By: #### [id number] #### [facility] [address] [place] [place] [address], USAErythrocyte distribution width (RBC) [Ratio]12.0 %Normal 11.5-15.0The [facility] HospitalComment on above:Performed By: #### [id number] #### [facility] [address] [place] [place] [address], USAHematocrit (Bld) [Volume fraction]40.4 %Ruvpmg97.0-45.0The [facility] HospitalComment on above:Performed By: #### [id number] #### [facility] [address] [place] [address], USAHemoglobin (Bld) [Mass/Vol]13.5 g/aCBxozyw95.0-15.0The [facility] HospitalComment on above:Performed By: #### [id number] #### [facility] [address] [place] [address], USAIMMATURE GRANS0.4 %Normal0.0-1.0The [facility] HospitalComment on above:Performed By: #### [id number] #### [facility] [address] [place] [id number], USALymphocytes (Bld) [#/Vol]2.3 10*3/uLNormal1.2-4.0The [facility] HospitalComment on above:Performed By: #### [id number] #### [facility] [address] [place] [address], [facility] MEDICAL CENTERLymphocytes/100 WBC (Bld)21.5 %Tbqglg95.0-45.0The [facility] HospitalComment on above:Performed By: #### [id number] #### [facility] [address] [place] [address], [facility]H (RBC) [Entitic mass]29.9 ulGncqfw62.0-33.0The [facility] HospitalComment on above:Performed By: #### [id number] #### [facility] [address] [place] [address], [facility] CENTERMCHC (RBC) [Mass/Vol]33.4 g/eXCnmxlh34.0-35.0The [facility] HospitalComment on above:Performed By: #### [id number] #### [facility] [address] [place] [address], [facility] MEDICAL CENTERMCV (RBC) [Entitic vol]89.6 oSIoqnsq31.0-98.0The [facility] HospitalComment on above:Performed By: #### [id number] #### [facility] [address] [place] [address], USAMonocytes (Bld) [#/Vol]0.6 10*3/uLNormal0.1-1.0The [facility] HospitalComment on above:Performed By: #### [id number] #### [facility] [address] [place] [address], USAMONOS5.6 %Normal5.0-12.0The [facility] HospitalComment on above:Performed By: #### [id number] #### [facility] [address] [place] [address], USANeutrophils/100 WBC (Bld)70.3 %Pjmxkj40.0-72.0The [facility] HospitalComment on above:Performed By: #### [id number] #### [facility] [address] [place] [address], USANucleated RBC/100 WBC (Bld) [Ratio]0 %Normal0-0The [facility] HospitalComment on above:Performed By: #### [id number] #### [facility] [address] [place] [address], USAPLAT [id number] 10*3/iZYmpp206-309Zib [facility] HospitalComment on above:Performed By: #### [id number] #### [facility] [address] [place] [address], USARBC (Bld) [#/Vol]4.51 10*6/uLNormal3.80-5.00The [facility] HospitalComment on above:Performed By: #### [id number] #### [facility] [address] [place] [address], USAWBC (Bld) [#/Vol]10.63 10*3/uLHigh4.00-10.60The [facility] HospitalComment on above:Performed By: #### [id number] #### [facility] [address] [place] [address], USACOMP METABOLIC PANELon [id number] [Mass/Vol]4.2 g/dL Normal3.5-5.7The [facility] HospitalComment on above:Performed By: #### [id number] #### [facility] [address] [place] [address], USAALKALINE UMBKDS20 IU/WTzzeay78-616Zdz [facility] HospitalComment on above:Performed By: #### [id number] #### [facility] [address] [place] [address], USAALT [Catalytic activity/Vol]6 U/LLow7-52The [facility] HospitalComment on above:Performed By: #### [id number] #### [facility] [address] [place] [address], USAAST [Catalytic activity/Vol]9 U/ZGew98-62Igb [facility] HospitalComment on above:Performed By: #### [id number] #### [facility] [address] [place] [address], USABilirubin [Mass/Vol]0.3 mg/dLNormal0.3-1.0The [facility] HospitalComment on above:Performed By: #### [id number] #### [facility] [address] [place] [address], USACalcium [Mass/Vol]9.4 mg/dLNormal8.6-10.3The [facility] HospitalComment on above:Performed By: #### [id number] #### [facility] [address] [place] [address], USAChloride [Moles/Vol]104 mmol/KFkeqil08-066Osa [facility] HospitalComment on above:Performed By: #### [id number] #### [facility] [address] [place] [address], USACO2 [Moles/Vol]25 mmol/ZTmqzsm00-10Xhj [facility] HospitalComment on above:Performed By: #### [id number] #### [facility] [address] [place] [address], USACreatinine [Mass/Vol]0.89 mg/dLNormal0.60-1.20The [facility] HospitalComment on above:Performed By: #### [id number] #### [facility] [address] [place] [address], USAGFR/1.73 sq M predicted among blacks MDRD (S/P/Bld) [Vol rate/Area]mL/min/{1.73_m2}Normal>60The [facility] Comment on above:Performed By: #### [id number] #### [facility] [address] [place] [address], USAGFR/1.73 sq M predicted among non-blacks MDRD (S/P/Bld) [Vol rate/Area]mL/min/{1.73_m2}Normal>60The [facility] Comment on above:Performed By: #### [id number] #### [facility] [address] [place] [address], USAGlucose [Mass/Vol]155 mg/zBVyfe33-603Pzv [facility] HospitalComment on above:Performed By: #### [id number] #### [facility] [address] [place] [address], USAPotassium [Moles/Vol]4.3 mmol/LNormal3.5-5.1The [facility] Defiance Regional HospitalComment on above:Performed By: #### [id number] #### [facility] [address] [place] [address], USAProtein [Mass/Vol]7.2 g/dLNormal6.0-8.3The [facility] HospitalComment on above:Performed By: #### [id number] #### [facility] [address] [place] [address], USASodium [Moles/Vol]138 mmol/UUdbmrh912-608Uuk [facility] HospitalComment on above:Performed By: #### [id number] #### [facility] [address] [place] [address], USAUrea nitrogen [Mass/Vol]24 mg/dLNormal7-25The [facility] HospitalComment on above:Performed By: #### [address] #### [address] [address], USACT LUMBAR SPINE WO CONTRASTon 26-82-7476QN LUMBAR SPINE WO CONTRASTUnSt. Anthony's Hospital Department of Radiology [address] [place] [id number] Patient Name: ADDIE JEAN BAPTISTE : 1975 Sex: F Age: Race: White Pt. Location: [facility] Patient Status: E Ordered Date: 08/10/2019 [...] achievable Electronically signed: Carie Sanchez. Transcribed by: [email or web address], User Resident: Electronically Signed by: CARIE SANCHEZ @ 08/10/2019 08:35 PMNKindred Hospital DaytonComment on above:Order Comment: Spinal StenosisKEPPRA ILon 14-41-0301ZMZdbjrsIyxAvita Health [facility] Comment on above:Result Comment: Test Performed by [employer] [address] [place] [address] - Released 08/10/2019 22:90NUYIAS11 ug/mLNKindred Hospital DaytonComment on above:Result Comment: A reference range for [...] concentrations and toxicity is not known.LITHIUM on 76-56-9725Sqhnjob [Moles/Vol]NormalThe [facility] Comment on above:Result Comment: Test Performed by [employer] [facility] [place] [address] - Released 08/10/2019 22:35 Result changed by IF on 08/10/2019 22:35. The previous value was Test Performed by [employer] [address] [place] [address] [phone]..[place] [Moles/Vol]mmol/LLow0.6-1.2The [facility] POC URINE PREGNANCYon 10-34-6629Bvti HCG ( test) Ql (U)NegativeNormal NEGATIVEThe [facility] Defiance [facility] HospitalComment on above:Result Comment: Performed in Emergency Department.Performed By: #### [id number] #### [facility] [address] [place] [address], USATOX PANEL URINEon 89-73-510951 THCNegativeNormalNEGATIVEThe [facility] Defiance Regional HospitalComment on above:Performed By: #### [id number] #### [facility] [address] [place] [address], USABARBITURATESNegativeNormalNEGATIVEThe [facility] Defiance Regional HospitalComment on above:Performed By: #### [id number] #### [facility] [address] [place] [address], USABenzodiazepines Ql (U)NegativeNormalNEGATIVEThe [facility] HospitalComment on above:Performed By: #### 65632 #### [facility] [address] [place] [address], USACocaine Ql (U)NegativeNormalNEGATIVEThe [facility]iance Regional HospitalComment on above:Performed By: #### 02169 #### [facility] [address] [place] [address], USAMethadone Ql (U)NegativeNormalNEGATIVEThe [facility] HospitalComment on above:Performed By: #### 92115 #### [facility] [address] [place] [address], USAMONO AMPHETNegativeNormalNEGATIVEThe [facility]iance Regional HospitalComment on above:Performed By: #### 56007 #### [facility] [address] [place] [address], USAOpiates Ql (U)NegativeNormalNEGATIVEThe [facility] HospitalComment on above:Performed By: #### 92774 #### [facility] [address] [place] [address], USAPhencyclidine Ql (U)NegativeNormalNEGATIVEThe [facility] Regional HospitalComment on above:Performed By: #### 15258 #### [facility] [address] [place] [address], USAPROPOXYPHENENegativeNormalNEGATIVEThe [facility] Regional HospitalComment on above:Performed By: #### 55246 #### [facility] [address] [place] [address], USATRICYCLICSPositiveAbnormalNEGATIVEThe [facility]iance Regional HospitalComment on above:Performed By: #### 95334 #### [facility] [address] [place] [address], USAVALPROIC ACIDon 37-57-5393XYOXYDCQ ACID (DEPAKOTE)57 mcg/mL Puk58-082Zuz [facility] HospitalComment on above:Performed By: #### 46829 #### [facility] [address] [place] [address], USACHEST 2 VIEW PA AND LATon 74-18-4725FBGCJ 2 VIEW PA AND LAT Patient Name: ORGAN, ADDIE STUDY: CHEST 2 VIEW PA AND LAT; 04/07/2019 7:13 am INDICATION: Pneumothorax. COMPARISON: 04/06/2019 ACCESSION NUMBER(S): [id number] ORDERING CLINICIAN: RADHA STEELE FINDINGS: There is [...] pacemaker/ICD implant Electronically signed by: MK HERNANDEZ MDConemaugh Memorial Medical CenterDischarge Ymqylyr8cg 34-98-5062Voxfgyfrb Nzkqjur6Ceslxcfwg Orders: Problem List: Additional Dx: AICD (automatic [...] dual chamber ICD upgrade currently with a [employer] [id number] Evera MRI XT DR device. See full [...] 3 month follow up with EP in [facility] office, CXR, and device check. Provider FINAL REVIEW of Orders: Final Review: Final Review of Medication Reconciliation and Orders Completedby LYLE Reviewing ProviderMARY Baez at 07-Apr-2019 13:43:42 Appointments: Follow-Up Appointment 01: Physician/Dept/Kyle Sevilla office Reason for Referralwound check Scheduled Date/Arer15-Njq-5678 02:30 Phone [phone] Follow-Up Appointment 02[facility] Reason for Referralchest X-Ray Scheduled Date/Yzwf89-Wil-8879 02:15 Phone [phone] Follow-Up Appointment 03[facility] Reason for Referraldevice check Scheduled Date/Vkvs36-Aiq-9707 03:00 Phone [phone] Follow-Up Appointment 04: Physician/Dept/ServiceDr. Noble Scheduled Date/Kyqh30-Yhn-4032 03:40 Phone [phone] Electronic Signatures: Radha Steele (INSPECTOR GOLF BALL-CLINICAL DOCUMENTATION SPECIALIST) (Signed 07-Apr-2019 13:51) Authored: Discharge Orders, Hospital Course (Home Care/Gold Form), Provider FINAL REVIEW of Orders, Gold Form - Composite Bond Worker Summary Ida Brand (CN) (Signed 07-Apr-2019 13:50) Authored: Appointments Last Updated: 07-Apr-2019 13:51 by Radha Steele (INSPECTOR GOLF BALL-CLINICAL DOCUMENTATION SPECIALIST)[facility] Memorial Medical CenterGLUCOSE-POCTon 52-51-2678Lequfir [Mass/Vol]150 mg/aNZpok78 - 99[facility] CenterComment on above:Performed By: #### CBC #### [address] [address]Axbuqwr [Mass/Vol]205 mg/oZNsjm60 - 99[facility] Comment on above:Performed By: #### CBC #### [address] [address]Gvzyfcq [Mass/Vol]365 mg/fKAisg37 - 99[facility] Comment on above:Performed By: #### CBC #### [address] [address]WTREY METABOLIC PANELon 28-66-2093Jquhw gap [Moles/Vol]17 mmol/L Rpktyq79 - 20[facility] CenterComment on above:Performed By: #### BMP #### [address] [address]Bpvrvwr [Mass/Vol]8.8 mg/dLNormal8.6 - 10.3[facility] CenterComment on above:Performed By: #### BMP #### [address] [address]Utqjrpsv [Moles/Vol]97 mmol/LLow98 - 107[facility] Comment on above:Performed By: #### BMP #### [address] [address]Xgolyxprhw [Mass/Vol]0.80 mg/dLNormal0.50 - 1.05[facility] HospitalComment on above:Performed By: #### BMP #### [address] [address]OLU-BVSLMDJ AM.>60Normal>60[facility] HospitalComment on above:Result Comment: CALCULATIONS OF ESTIMATED GFR ARE PERFORMED USING THE MDRD STUDY EQUATION FOR THE IDMS-TRACEABLE CREATININE METHODS. CLIN CHEM 2007;53:766-72Performed By: #### BMP #### [address] [address]ASX-BXK AM.>60Normal>60[facility] HospitalComment on above:Performed By: #### BMP #### [address] [address]Gxeeqlj [Mass/Vol]429 mg/sBDsnw02 - 99[facility] Comment on above:Performed By: #### BMP #### [address] [address]UZI0 (Bld) [Moles/Vol]21 mmol/IImsmfr02 - 32[facility] HospitalComment on above:Performed By: #### BMP #### [address] [address]Gvrdnicwk [Moles/Vol]3.8 mmol/LNormal3.5 - 5.3[facility] HospitalComment on above:Performed By: #### BMP #### [address] [address]Ntesjn [Moles/Vol]131 mmol/SEmt037 - 145[facility] Comment on above:Performed By: #### BMP #### [address] [address]Prmt nitrogen [Mass/Vol]16 mg/dLNormal6 - 23[facility] HospitalComment on above:Performed By: #### BMP #### [address] [address]DOWjx 93-04-7703Gcvygenjatp distribution width (RBC) [Ratio]11.7 %Qydvuh15.5 - 14.5[facility] HospitalComment on above:Performed By: #### CBC #### [address] [address]Doshtbptup (Bld) [Volume fraction]40.2 %Rbmdwe39.0 - 46.0[facility] HospitalComment on above:Performed By: #### CBC #### [address] [address]Rmhetrwslx (Bld) [Mass/Vol]13.9 g/zEIocmis26.0 - 16.0[facility] HospitalComment on above:Performed By: #### CBC #### [address] [address]WFCE (RBC) [Mass/Vol]34.6 g/dPJsknwm40.0 - 36.0[facility] HospitalComment on above:Performed By: #### CBC #### [address] [address]XOO (RBC) [Entitic vol]88 fNNpnron13 - 100[facility] HospitalComment on above:Performed By: #### CBC #### [address] [address]Qageuhvdp (Bld) [#/Vol]306 10*3/yGUqpvfk402 - 450[facility] HospitalComment on above:Performed By: #### CBC #### [address] [address]LYZ (Bld) [#/Vol]4.57 x10E12/LNormal4.00 - 5.20[facility] HospitalComment on above:Performed By: #### CBC #### [address] [address]UFH (Bld) [#/Vol]9.4 10*3/uLNormal4.4 - 11.3[facility] HospitalComment on above:Performed By: #### CBC #### [address] [address]OFTDF 2 VIEW PA AND LATon 25-68-7137XAYCZ 2 VIEW PA AND LATMRN: [id number] Patient Name: ORGAN, ADDIE STUDY: TH CHEST 2 VIEW PA AND LAT; 04/06/2019 8:05 am INDICATION: SVT, preop implant. COMPARISON: None. ACCESSION NUMBER(S): [id number] ORDERING CLINICIAN: ROSALIA NOBLE FINDINGS: CARDIOMEDIASTINAL SILHOUETTE: [...] focal infiltrate. Electronically signed by: Marlyn COTTERAdventHealth AvistaCOAGULATION SCREENon 18-51-3469dPSM Coag (Bld) [Time]29 oDlcrgx15 - 38[facility] HospitalComment on above:Result Comment: THE APTT IS NO LONGER USED FOR MONITORING UNFRACTIONATED HEPARIN THERAPY. FOR MONITORING HEPARIN THERAPY, USE THE HEPARIN ASSAY.Performed By: #### COAGS #### [address] [address]IWJ Coag (PPP) [Relative time]1.0 {INR}Normal0.9 - 1.1[facility] HospitalComment on above:Performed By: #### COAGS #### [address] [address]NG Coag (PPP) [Time]10.8 sNormal9.7 - 12.7[facility] HospitalComment on above:Performed By: #### COAGS #### [address] [address] Progress Note-Electrophysiologyon 87-48-6710Vxozg Progress Note-ElectrophysiologyService: Electrophysiology Assessment and Plan: Assessment: [...] of infection. The patient should call the vocational case manager immediately if symptoms recur, or for any problems. The patient and mother(message left on phone with HIPPA consent) have been instructed accordingly. 2.Follow up with [facility] office in seven days for post-operative wound assessment. 3.Follow up with Device Clinic in twelve weeks for routine device analysis and reprogramming if necessary. Remote monitoring will be instituted and released from [facility] to [facility] as per patient request. Procedures: Complete [...] was placed. 11.A dual-chamber cardioverter defibrillator (Med GRND6E8 #[id number]) was attached to the leads and implanted. [...] 6 Fr high RA, CS Bpst Sci [place] new access Right femoral vein 6 Fr His-bundle (right side) Eddy Sci Vikingnew access Right femoral vein 6 Fr RV apex, RVOT Eddy Sci [place] new access Complications: The patient tolerated the procedure without any complications or incident. EBL 0 cc Specimens obtained: No Prepared and signed by. Electronic Signatures: Rosalia Noble) (Signed 06-Apr-2019 16:32) Authored: Service, Objective Data, Assessment and Plan, Signature/Cosignature/Attestation Last Updated: 06-Apr-2019 16:32 by Rosalia Noble)[facility] GLUCOSE-POCTon 02-70-3326Htnzoax [Mass/Vol]409 mg/aBPjef2291 Mccarthy StreetComment on above:Performed By: #### CBC #### [address] [address]Dxgfqmf [Mass/Vol]136 mg/jEQofa7[address] Comment on above:Performed By: #### CBC #### [address] [address]Npnjeyo [Mass/Vol]167 mg/rVQuqt3591 [address] Comment on above:Performed By: #### CBC #### [address] [address]Hdmfpru [Mass/Vol]218 mg/mHClue15[address] Comment on above:Performed By: #### CBC #### [address] [address]Xeqvbqi [Mass/Vol]338 mg/cXYyyc7[address] Comment on above:Performed By: #### GLUPO #### [address] [address]Mcdycbl [Mass/Vol]415 mg/zSRpjq30[address] Comment on above:Performed By: #### GLUPO #### [address] [address]IAL,SERUM QUALITATIVEon 07-44-6570EXO,SERUM QUALITATIVENegative NormalNegativeBanner Fort Collins Medical CenterComment on above:Performed By: #### HCGS #### [address] [address]Asuuxil Profile - Preop v2on 94-16-9948Zptdllt Profile - Preop r8Fsicglz: Initial Info: How to be AddressedCathy Spoken Language PreferredEnglish Source of Informationpatient; family Are you currently using the Personal Electronic Health Record or [place] GroupPROTESTANT DEACONESS HOSPITALno Are you interested in learning more about MYPROTEST[facility] DEACONESS HOSPITAL for the management of your healthnot at this time Stated Reason for AdmissionEPS Primary Contact Name and NumberSharon Organ [phone] Limitations on Visitors/Phone Callsnone Patient Belongingsremains with patient Patient Belongings Remaining with Patientcell phone/electronics; clothing Medications Brought to Hospitalyes General Health: Weight in kg91.1 kilogram(s) Weight in sgs421.8 pound(s) Weight Methodstated Scale Typestanding Height in [...] Transitionnone Lives Withspouse Living Arrangementshouse Anticipated Transition [place] Substance: Current or Former Substance Use never: [...] Learning Preferencesindividual instruction Cultural Considerationsnone Developmental Considerationsnone Restorationism Considerationsnone Other learner availableno Falls RiskPatient location auto qualifies him/her for HIGH RISK. 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 Criminalist Technician/Box Shook Patcher notifiedno Pain Scalenumerical 0-10 Pain Scale Educationteaching [...] Last Updated: 06-Apr-2019 07:39 by Kristi Soriano (RN)[facility] Medical CenterPreop Checkliston 69-07-4042Mguls ChecklistPreop Checklist: Preop Checklist: Arrival Tnmx71-Irs-1299 Arrival Time06:38 Temperature C36.1 degrees C Temperature F96.9 degrees F Heart Rate60 beats per minute Respiratory Rate18 breath per minute Blood Pressure Xxlvrhya63 mm/Hg Blood Pressure Sfhvlfkmm00 mm/Hg NPO Hujjpf19-Dyr-3426 23:00 ID Band Onyes Allergy Bandyes H&P [...] Last Updated: 06-Apr-2019 07:42 by Kristi Soriano (JAEL)[facility] CenterUA MICROSCOPICon 01-93-4480DEKOMUMR5+ /[facility]ITALAb[facility] Comment on above:Performed By: #### CBC #### [address] [address]BADRA9+ /LPFNoAdventHealth AvistaComment on above: Performed By: #### CBC #### [address], [place] [address]RCX5 /[facility] HOSPITALNormal0-5[facility] CenterComment on above: Performed By: #### CBC #### [address], [place] [address]UIJBWNVI EPITH. CELLS3 /[facility] HOSPITALNoAdventHealth AvistaComment on above:Performed By: #### CBC #### [address] [address]SKF4 /HPFAbnormal0-5[facility] CenterComment on above: Performed By: #### CBC #### [address] [address]FOKISUETDXww 18-74-3712Bdjucltzpd (U)CLEARNormalCLEARBanner Fort Collins Medical CenterComment on above:Performed By: #### UA #### [address] [address]Puqhmfaik (U) [Mass/Vol]NegativeNormalNEGATIVEBanner Fort Collins Medical CenterComment on above:Performed By: #### UA #### [address] [address]ORRNKTewvzdksUahaczVSLWWIBOGJ [facility]ria Medical CenterComment on above:Performed By: #### UA #### [address] [address]Hhamo (U)YELLOWNormalSTRAW,YELLOWBanner Fort Collins Medical CenterComment on above:Performed By: #### UA #### [address] [address]Vssxfce [Mass/Vol]>=500 (3+)AbnormalNEGATIVEBanner Fort Collins Medical CenterComment on above:Performed By: #### UA #### [address] [address]Roxsopi Ql (U)NegativeNormalNEGWoman's Hospital Comment on above:Performed By: #### UA #### [address] [address]Ukzwzhieg esterase Test strip Ql (U)TRACEAbnormsdNEGWoman's HospitalComment on above:Performed By: #### UA #### [address] [address]Cmmhrso Ql (U)PositiveAbNorthern Light Acadia Hospital Comment on above:Performed By: #### UA #### [address] [address]nQ (Bld)5.2Furlrw8.0 - 8.0[facility] CenterComment on above:Performed By: #### UA #### [address] [address]Gzlnotk (U) [Mass/Vol]NegativeNormalNEGATIVEBanner Fort Collins Medical CenterComment on above:Performed By: #### UA #### [address] [address]Nhfwjtfi gravity (U) [Rel density]1.316Uwxuku2.005 - 1.035[facility] Medical CenterComment on above:Performed By: #### UA #### [address] [address]Tplymjtqsidu Qn (U)<2.3Mgzjkk7.0 - 1.9[facility] Comment on above:Performed By: #### UA #### [address] [address]Zdvncytoaj Studieson 33-76-7229Kounvxw [Mass/Vol]9.8 mg/dL 8.2-10.2FMercy Health Clermont Hospital CtrChloride [Moles/Vol]98 mmol/L95-114 [facility] CtrCO2 [Moles/Vol]19.7 mmol/LLow22.0-30.0[facility] CtrCreatinine [Mass/Vol]0.88 mg/dL0.44-1.03[facility] CtrGFR/1.73 sq M predicted among non-blacks MDRD (S/P/Bld) [Vol rate/Area]mL/min/{1.73_m2}[facility] CtrGFR/1.73 sq M.predicted MDRD (S/P/Bld) [Vol rate/Area]mL/min/{1.73_m2}[facility] Comment on above:GFR estimated reference range: According to KDOQI guidelines, <60 ml/min/1.73m2 is sufficient todiagnose a patient with chronic kidney disease.Glucose [Mass/Vol]436 mg/lTUboj66-988FoxocuqtdMercy Health – The Jewish Hospital Ctr Comment on above:ADA recommended reference range Random Glucose Reference Range is dependent on time and content of last meal. Glucose of more than 200 mg/dL in a nonstressed, ambulatory subject supports the diagnosis of Diabetes Mellitus.Pharmacy Creatinine Clearance (ChemN/AFMercy Health Cl[facility] Hospital CtrPotassium [Moles/Vol]4.3 mmol/L3.5-5.1FMercy Health Clermont Hospital CtrSodium [Moles/Vol]134 mmol/TWwt938-538YwudpgwrrMercy Health – The [facility] Hospital Ctr Urea nitrogen [Mass/Vol]13 mg/dL9-23[facility] CtrLaboratory Studieson 22-62-8682Bnagpus [Mass/Vol]148 mg/dLMercy Health – The Jewish Hospital Ctr Comment on above:Random Glucose Reference Range is dependent on time and content of last meal. Glucose of more than 200 mg/dL in a nonstressed, ambulatory subject supports the diagnosis of Diabetes Mellitus.Basophils (Bld) [#/Vol]0.1 10*3/uL0.0-0.2FMercy Health Clermont Hospital CtrBasophils/100 WBC (Bld)0.4 % [facility] CtrEosinophils (Bld) [#/Vol]0.2 10*3/uL0.0-0.45 [facility] CtrEosinophils/100 WBC (Bld)1.6 %[facility] CtrErythrocyte distribution width (RBC) [Ratio]12.7 %11.9-15.3FMercy Health Clermont Hospital CtrHematocrit (Bld) [Volume fraction]33.9 %Low34.0-46.4 [facility] CtrHemoglobin (Bld) [Mass/Vol]11.5 g/dLLow11.8-15.4 [facility] CtrLymphocytes (Bld) [#/Vol]3.2 10*3/uL1.00-4.8 [facility] CtrLymphocytes/100 WBC (Bld)25.2 %[facility] CtrMCH (RBC) [Entitic mass]31.2 pg24.7-34.3FMercy Health Clermont Hospital CtrMCHC (RBC) [Mass/Vol]34.0 g/dL32.0-35.0[facility] CtrMCV (RBC) [Entitic vol]92.0 iR53-530XhcvltlltMercy Health – The Jewish Hospital CtrMonocytes (Bld) [#/Vol]0.6 10*3/uL0.0-0.8[facility] CtrMonocytes/100 WBC (Bld) 4.3 %[facility] CtrNeutrophils (Bld) [#/Vol]8.7 10*3/uLHigh 1.8-7.7FMercy Health Clermont Hospital CtrNeutrophils/100 WBC (Bld)68.5 %[facility] CtrNucleated RBC/100 WBC (Bld) [Ratio]0.0 %0-0.5FMercy Health Clermont Hospital CtrPlatelet mean volume (Bld) [Entitic vol]7.3 fL6.3-10.7 [facility] CtrPlatelets (Bld) [#/Vol]297 10*3/qI547-871MakntltvyMercy Health – The Jewish Hospital CtrRBC (Bld) [#/Vol]3.68 10*6/uL3.60-5.00[facility] CtrWBC (Bld) [#/Vol]12.7 10*3/uLHigh4.5-11.0[facility] CtrGlucose [Mass/Vol]Glu2: cleaned meterMercy Health – [facility] Jewish Hospital CtrLaboratory Studieson 19-52-6393Vdtliam [Mass/Vol]Will notify /ShellyMercy Health Clermont Hospital CtrAlbumin [Mass/Vol]3.0 g/dLLow3.2-5.5FMercy Health Clermont Hospital Ctr Albumin/Globulin [Mass ratio]1.1 {ratio}[facility] CtrALP [Catalytic activity/Vol]68 U/Z21-96GjocwlvqrMercy Health – The Jewish Hospital CtrALT No additional P-5'-P [Catalytic activity/Vol]12 U/F66-65YqvpjzmpeMercy Health – The Jewish Hospital CtrAST [Catalytic activity/Vol]17 U/N42-49ZkfnkfwioMercy Health – The Jewish Hospital Ctr Bilirubin [Mass/Vol]0.6 mg/dL0.3-1.2FMercy Health Clermont Hospital CtrCholesterol [Mass/Vol]123 mg/uTHfx936-751IifgvqtumMercy Health – The Jewish Hospital CtrComment on above:Chol less than 200 mg/dl low risk Chol 201-239 mg/dl borderline risk Chol 240 mg/dl and greater high riskCholesterol in HDL [Mass/Vol]51 mg/dL35-85 [facility] CtrComment on above:HDL CHOL ATP-III CLASSIFICATION Cardiovascular Risk HDL > or equal to 60 mg/dL LOW HDL < 40 mg/dL HIGHCholesterol in LDL [Mass/Vol]57 mg/dL0-100[facility] CtrComment on above:LDL ATP III CLASSIFICATION LDL less than 100 mg/dL Optimal LDL 100-129 mg/dL Near or above optimal LDL 130-159 mg/dL Borderline high LDL 160-189 mg/dL High LDL greater than 189 mg/dL Very highCholesterol in VLDL [Mass/Vol]15 mg/dL [facility] CtrCholesterol.total/Cholesterol in HDL [Mass ratio] 2.4 {ratio}[facility] CtrGlobulin (S) [Mass/Vol]2.7 g/dL [facility] CtrProtein [Mass/Vol]5.7 g/dLLow6.1-7.9[facility] CtrTriglyceride [Mass/Vol]75 mg/eC20-135LgujihmqaMercy Health – The Jewish Hospital CtrComment on above:TRIG ATP III CLASSIFICATION TRIG less than 150 mg/dL Normal TRIG 150-199 mg/dL Borderline high TRIG 200-500 mg/dL High TRIG greater than 500 mg/dL Very high Standard traceable to the Center for Disease Conrtrol and Prevention (CDC) test method.Laboratory Studieson 31-16-8884Qacvztb [Moles/Vol]1.4 mmol/LFMercy Health Clermont Hospital CtrCK [Catalytic activity/Vol]35 U/Z04-494IrtdfdxtnMercy Health – The Jewish Hospital CtrINR Coag (PPP) [Relative time]1.0 {INR}[facility] Comment on above:INR Therapeutic Range [...] valves: 3 - 4.5Prolactin [Mass/Vol]6.20 ng/mL3.34-26.72[facility] CtrPT Coag (PPP) [Time]11.0 s9.0-12.9 [facility] CtrTroponin I.cardiac [Mass/Vol]ng/mL0-0.02[facility] CtrComment on above:KEISHA [place] Cut off value > or equal to 0.03 ng/mL in conjunction with clinical conditions of myocardial infarction. (www.escardio.org/guidelines)Amphetamines Ql (U)NegativeMercy Health – The Jewish Hospital CtrBarbiturates Ql (U)NegativeMercy Health – The Jewish Hospital Ctr Benzodiazepines Ql (U)NegativeMercy Health – The Jewish Hospital CtrBilirubin Ql (U) NegativeMercy Health – The Jewish Hospital CtrCannabinoids Screen Ql (U)Negative [facility] CtrComment on above:These are unconfirmed results and should not be used for legal purposes. Drug Cut-Off Concentration: AMPH 1000 ng/mL JULIANNA 200 ng/mL ALICE 200 ng/mL COCM 300 ng/mL OP 300 ng/mL PCP 25 ng/mL THC 20 ng/mLClarity Refractometry automated (U)[facility] CtrCocaine Ql (U)[facility] CtrColor (U)[facility]ellowMer[facility] CtrGlucose Auto test strip (U) [Mass/Vol]500 mg/dLHighMercy Health – The [facility] Hospital CtrHCG ( test) Ql (U)[facility] CtrHemoglobin Auto test strip Ql (U)[facility] CtrKetones (U) [Mass/Vol][facility] CtrLeukocyte esterase Auto test strip Ql (U)[facility] CtrNitrite Ql (U)[facility] CtrOpiates Ql (U)[facility] CtrpH (U)6.0 [pH]5.0-9.0[facility] Ctr Phencyclidine Ql (U)[facility] CtrProtein (U) [Mass/Vol] [facility] CtrSpecific gravity (U) [Rel density]1.020 1.001-1.030[facility] CtrUrobilinogen (U) [Mass/Vol]Normal mg/dL [facility] CtrMicrobiology Studieson 16-07-0703Xuxjglmvfxsewx aureusStaphylococcus aureusMercy Health – [facility] Hospital CtrBASIC METABOLIC PANELon 88-21-2359Gmpiggl mass vqnv851 mg/dLCritically hshd72-965XcyojuxwMemorial Hospital of [facility]idan County on above:Order Comment: CALLED ER 06/25/2018, 15:09, KJD, Called with verbal read back by Romeo Castillo.Result Comment: RESULTS REPEATED AND CONFIRMEDPerformed By: #### BASIC #### [address] [address] Anion gap molar conc15.6 mmol/DIeuxuw00-05TmbqudwoMemorial Hospital of Sheridan County on above:Order Comment: CALLED ER 06/25/2018, 15:09, KJD, Called with verbal read back by Romeo Castillo.Performed By: #### BASIC #### [address] [address] Calcium mass conc9.8 mg/dLNormal8.4-10.2MMemorial Hospital of Sheridan County on above:Order Comment: CALLED ER 06/25/2018, 15:09, KJD, Called with verbal read back by Romeo Castillo.Performed By: #### BASIC #### [address] [address] CO2 molar conc25.0 mm/FyHwqxkr85.0-30.0[facility] on above:Order Comment: CALLED ER 06/25/2018, 15:09, KJD, Called with verbal read back by Romeo Castillo.Performed By: #### BASIC #### [address] [address] Urea nitrogen mass conc11 mg/dLNormal7-22[facility] on above:Order Comment: CALLED ER 06/25/2018, 15:09, KJD, Called with verbal read back by Romeo Castillo.Performed By: #### BASIC #### [address] [address] Creatinine mass conc0.70 mg/dLNormal0.70-1.20[facility] on above:Order Comment: CALLED ER 06/25/2018, 15:09, KJD, Called with verbal read back by Romeo Castillo.Performed By: #### BASIC #### [address] [address] GFR/1.73 sq M predicted among non-blacks MDRD vol rate/area (S/P/Bld)98 mL/min/1.73 b7Rzhdgw>60MeSweetwater [facility] Comment on above:Order Comment: CALLED ER 06/25/2018, [...] OR very young -Races other than or -Z[place]ian -People with acute illnesses, amputations, or acute kidney failure. Estimated GFR should be interpreted in clinical context and an alternative method such as a timed urine collection for creatinine clearance used to verify questionable results. (Ref. [employer] 2015)Performed By: #### BASIC #### [address] [address] Chloride molar conc94 mmol/VOnz496-956HlgjsotdSweetwater County Memorial Hospital - Rock SpringsComsheridan community hospital on above:Order Comment: CALLED ER 06/25/2018, 15:09, KJD, Called with verbal read back by Romeo Castillo.Performed By: #### BASIC #### [address] [address] Potassium molar conc4.1 mmol/LNormal3.5-5.0MeSweetwater County Memorial Hospital - Rock SpringsComsheridan community hospital on above:Order Comment: CALLED ER 06/25/2018, 15:09, KJD, Called with verbal read back by Romeo Castillo.Performed By: #### BASIC #### [address] [address] Sodium molar mcif647 mmol/NOie550-595MukltoywMemorial Hospital of [facility]idan County on above:Order Comment: CALLED ER 06/25/2018, 15:09, KJD, Called with verbal read back by Romeo Castillo.Performed By: #### BASIC #### [address] [address] CARP1 0 HR DRAWon 42-02-2694Mbwhghve I.cardiac mass conc ng/mLNormal0.012-0.120[facility] on above:Order Comment: CALLED ER 06/25/2018, 15:09, KJD, Called with verbal read back by Romeo Castillo.Result Comment: REFERENCE RANGE IS 0.012 - 0.120 ng/ml cTnI - The cutoff of 0.120 ng/ml is recommended for diagnosis of AMI, yielding optimal performance of 95% sensitivity and 93% specificity.Performed By: #### CTP0 #### [address] [address] CARP1 3 HR DRAWon 75-17-8468Mjrbdvac I.cardiac mass conc ng/mLNormal0.012-0.120[facility] on above:Result Comment: REFERENCE RANGE IS 0.012 - 0.120 ng/ml cTnI - The cutoff of 0.120 ng/ml is recommended for diagnosis of AMI, yielding optimal performance of 95% sensitivity and 93% specificity.Performed By: #### CTP3 #### [address] [address] CBC WITH DIFFERENTIALon 82-23-5497Lnfccrkzz #/vol (Bld) 0.07 10*3/uLNormal0.00-0.20[facility] on above: Performed By: #### CBCD #### [address] [address] Basophils #/vol (Bld)0.7 %Normal0.0-2.0[facility] on above:Performed By: #### CBCD #### [address] [address] Eosinophils #/vol (Bld)0.12 10*3/uLNormal0.00-0.50 [facility] on above:Performed By: #### CBCD #### [address] [address] Eosinophils/100 WBC (Bld)1.2 %Normal0.0-4.0[facility] on above:Performed By: #### CBCD #### [address] [address] Erythrocyte distribution width Ratio (RBC)11.5 %Normal 11.5-14.5[facility] on above:Performed By: #### CBCD #### [address] [address] Hematocrit Volume Fraction (Bld)42.3 %Jtwiqd94.0-47.0 [facility] on above:Performed By: #### CBCD #### [address] [address] Hemoglobin mass conc (Bld)14.8 g/iNQezyqn62.0-16.0 [facility] on above:Performed By: #### CBCD #### [address] [address] Lymphocytes #/vol (Bld)1.60 10*3/uLNormal1.00-4.80 [facility] on above:Performed By: #### CBCD #### [address] [address] Lymphocytes/100 WBC (Bld)15.6 %Low24.0-44.0[facility] on above:Performed By: #### CBCD #### [address] [address] MCH Entitic mass (RBC)31.1 xqBbioju60.6-32.2Mem[facility] on above:Performed By: #### CBCD #### [address] [address] MCHC mass conc (RBC)35.0 g/kTCzeiyc89.0-36.0[facility] on above:Performed By: #### CBCD #### [address] [address] MCV Entitic volume (RBC)88.9 xOHvmdnt57.0-98.0[facility] on above:Performed By: #### CBCD #### [address] [address] Monocytes #/vol (Bld)0.56 10*3/uLNormal0.20-1.20[facility] on above:Performed By: #### CBCD #### [address] [address] Monocytes/100 WBC (Bld)5.5 %Normal5.0-12.0[facility] on above:Performed By: #### CBCD #### [address] [address] Neutrophils #/vol (Bld)7.84 10*3/uLHigh2.00-7.50[facility] on above:Performed By: #### CBCD #### [address] [address] Neutrophils/100 WBC (Bld)76.6 %High36.0-66.0Mem[facility] Hospital of Union CountyComment on above:Performed By: #### CBCD #### [address] [address] NRBC COUNT0.64Bhxwst4.00-0.50[facility] on above:Performed By: #### CBCD #### [place] [id number] Nucleated RBC/100 WBC Ratio (Bld)0.0 %NormalMemorial Hospital of Sheridan County on above:Performed By: #### CBCD #### [place] [id number] Platelet mean volume Entitic volume (Bld)9.7 fLNormal 9.4-12.4[facility] on above:Performed By: #### CBCD #### [address] [address] Platelets #/vol (Bld)314 10*3/uBAhehpc475-613EopphyvfMemorial Hospital of Sheridan County on above:Performed By: #### CBCD #### [address] [address] RBC #/vol (Bld)4.76 10*6/uLNormal3.80-5.10[facility] on above:Performed By: #### CBCD #### [address] [address] WBC #/vol (Bld)10.23 10*3/uLNormal4.80-10.80[facility] on above:Performed By: #### CBCD #### [address] [address] [phone]-YTFAPik 45-49-4071KFKRTIO-URINEPATIENT: ORGAN, ADDIE J [id number] 1975 AGE: 43 SEX: F ORDER# [id number] ORDERED BY: PRESTON ESPINO Source: URI Collected: [...] <=4 S Tobramycin <=4 S Trimeth/Sulfa <=2/ SNormalMemorial Hospital of Sheridan County - SheridanComsheridan community hospital on above: Performed By: #### EKATERINA #### [place] [address] [phone]-DKECM QUANTITATIVEon 44-47-8712Z-DIMER QUANTITATIVE0.32 mg/L FEUNormal0.00-0.50[facility] - SheridanComsheridan community hospital on above:Result Comment: 06-16-16 D-DIMER QUANTITATIVE REFERENCE INTERVAL: Anticoagulant therapy decreases the D-dimer levels and may generate false negative results Quantitative D-dimer performed on the Sysmex [id number] analyzer. Cutoff value is 0.50 mg/L FEU in an attempt to obtain a negative predictive value close to 100 percent. (for DVT and PE). Non-VTE causes of elevated D-dimer include: trauma, [place], stroke, sepsis, DIC, active collagen diseases, post-surgery, cancer, thrombolytic therapy, large hematoma, diabetes, and post-. Clinical data and imaging studies may be used in order to confirm a positive D-dimer test. The above D-dimer assay may be used for DIC screening in conjunction with other coagulation procedures (PT, PTT, fibrinogen and platelet count). Pathology consultation is available. 6-18-52Fvoitvvrz By: #### DDIME #### [place] [address] MAGNESIUMon 27-63-1772Lvinbznge mass conc1.4 mg/dLLow 1.7-2.2MemSouth [facility] on above:Order Comment: CALLED ER 06/25/2018, 15:09, KJD, Called with verbal read back by Romeo Castillo.Performed By: #### MAG #### [place] [address] UA COMPLETE AND REFLEX TO CULTUREon 92-09-9979CSANNFOM8+ /hpfAbnoCastle Rock Hospital District on above:Performed By: #### URINR #### [address] [address] HYALINE CASTSNONENoCastle Rock Hospital District on above:Performed By: #### URINR #### [address] [address] RBC - URINE7 /hpfHigh0-2[facility] on above:Performed By: #### URINR #### [address] [address] URINE EPITHELIAL CELLS1 /hpfNormal0-[address] [place] [address] on above:Performed By: #### URINR #### [address] [address] URINE REFLEX CASTSNORMALPerson Memorial Hospital on above:Performed By: #### URINR #### [address] [address] URINE REFLEX CELLSNORMALPerson Memorial Hospital on above:Performed By: #### URINR #### [address] [address] URINE REFLEX CRYSTALSNORMALNormSageWest Healthcare - [facility] on above:Performed By: #### URINR #### [address] [address] URINE REFLEX YEASTNORMALNoNiobrara Health and Life Center - [facility] on above:Performed By: #### URINR #### [address] [address] WBC - URINE92 /hpfHigh0-[address] [place] [address] on above:Performed By: #### URINR #### [address] [address] Bilirubin.direct mass concNegativeNormalNEGVA Medical Center Cheyenne on above:Performed By: #### URINR #### [address] [address] BLOODNegativeNormalNEGATIVEMemorial Hospital of Sheridan County on above:Performed By: #### URINR #### [facility] [address] [place] [address] Color Nom (U)LIGHT YELLOWNormalMemorial Hospital of [facility] County on above:Performed By: #### URINR #### [facility] [address] [place] [address] Glucose Ql (U)>2000AbnormalNEGATIVEMemorial Hospital of [facility]idan County on above:Performed By: #### URINR #### [address] [address] Ketones Ql (U)NegativeNormalNEGVA Medical Center [facility] on above:Performed By: #### URINR #### [address] [address] Leukocyte esterase Test strip Ql (U)MODERATEAbnormal NEGATIVEMemorial Hospital of Sheridan County on above:Performed By: #### URINR #### [address] [address] NITRITES URINE2+ mg/dLAbnormalNEGVA Medical Center [facility] on above:Performed By: #### URINR #### [address] [address] pH (U)5.5 [pH]Normal6.0-8.5[facility] on above:Performed By: #### URINR #### [address] [address] Protein mass conc (U)NegativeNormalNEG/TRACEMemorial Hospital of [facility]idan County on above:Performed By: #### URINR #### [address] [address] Specific gravity Relative Density (U)1.774Pgsazy6.010 - 1.030[facility] Union CountyComsheridan community hospital on above:Performed By: #### URINR #### [address] [address] TURBIDITYCLEARNoMemorial Hospital of [facility] County Comment on above:Performed By: #### URINR #### [address] [address] UROBILINOGEN URINE0.2 mg/dLNormal<2.0[facility] - SheridanComsheridan community hospital on above:Performed By: #### URINR #### [address] [address] METHOD OF COLLECTING URINENot statedNovant Health Kernersville Medical CenterComsheridan community hospital on above:Performed By: #### URINR #### [address] [address] [phone]-Lftxd Xray - Portable One Viewon 24-36-7375VO-Chest Xray - Portable One ViewCLINICAL INDICATION: CHEST [...] acute cardiopulmonary disease. Read By: CÉSAR RICE DONormalMemorial Hospital of [facility] - [place] Urinalysis, Routineon 71-01-0665Hkhcbbuotlfyj mass concNegativeNormalNEGMercy Backus HospitalComment on above:Performed By: #### CDP, BMP, BNP, TROPI, DIME, PT, PTT ####[address] [place] [address] Bilirubin (direct)NegativeNormalNEGMerSaint Mary's Hospital Comment on above:Performed By: #### CDP, BMP, BNP, TROPI, DIME, PT, PTT ####[address] [place] [address] Hemoglobin mass conc (Bld)NegativeNormalNEGMerAshtabula County Medical Center HospitalComment on above:Performed By: #### CDP, BMP, BNP, TROPI, DIME, PT, PTT ####[address] [place] [address] Nitrite,UrPositive AbnormalNEGMercy Block Island HospitalComment on above:Performed By: #### CDP, BMP, BNP, TROPI, DIME, PT, PTT ####[address] [place] [address] TurbiditySLIGHTLY CLOUDYAbnormalCLEARMMain Campus Medical Center Comment on above:Performed By: #### CDP, BMP, BNP, TROPI, DIME, PT, PTT ####[address] , [place] [address] Urine, colorYELLOWNormalYELMercy Block Island HospitalComment on above:Performed By: #### CDP, BMP, BNP, TROPI, DIME, PT, PTT ####[address] [place] [address] Urine, glucose presence3+AbnormalNEGAshtabula County Medical Center HospitalComment on above:Performed By: #### CDP, BMP, BNP, TROPI, DIME, PT, PTT ####[address] [place] [address] Urine, leukocyte esterase presenceNegativeNormalNEGAshtabula County Medical Center HospitalComment on above:Result Comment: Performed at [address] [place] [address] Performed By: #### CDP, BMP, BNP, TROPI, DIME, PT, PTT ####[address] , [facility]83 Urine, pH5.5 [pH]Normal5.0-9.0[facility] HospitalComment on above:Performed By: #### CDP, BMP, BNP, TROPI, DIME, PT, PTT ####[address] , [place] [address] Urine, protein presence NegativeNormalNEGAshtabula County Medical Center HospitalComment on above:Performed By: #### CDP, BMP, BNP, TROPI, DIME, PT, PTT ####[address]T [place], [place] [address] Urine, specific gravity1.059Beqgyo8.010-1.020[facility]'S HospitalComment on above:Performed By: #### CDP, BMP, BNP, TROPI, DIME, PT, PTT ####[address] , [place] [address] Urobilinogen,UrNormalNormalNORMAshtabula County Medical Center HospitalComment on above:Performed By: #### CDP, BMP, BNP, TROPI, DIME, PT, PTT ####[address] , [place] [address] Urinalysis,Microon 09-02-2017-----NormalAkron Children'S HospitalComment on above:Performed By: #### CDP, BMP, BNP, TROPI, DIME, PT, PTT ####[address] , [place] [address] Urine WBC's10 TO 94Hijkjt8-1Jtini Tiffin HospitalComment on above:Performed By: #### CDP, BMP, BNP, TROPI, DIME, PT, PTT ####[address] , [facility]83 Urine, bacteria in sediment3+AbnormalNONEMeSt. Vincent's Medical CenterComment on above:Result Comment: Performed at [address] [place], [place] [address] Performed By: #### CDP, BMP, BNP, TROPI, DIME, PT, PTT ####[address] , [facility]83 Urine, epithelial cells in sediment0 TO 9Blnhgb5-57LvkkdAkron Children'S HospitalComment on above:Performed By: #### CDP, BMP, BNP, TROPI, DIME, PT, PTT ####[address] , [facility]83 Urine, erythrocytes0 TO 4Hrycnb3-3WtzbhSaint Mary's HospitalComment on above:Performed By: #### CDP, BMP, BNP, TROPI, DIME, PT, PTT ####[address] , [facility]83 Basic Metabolic Profon 09-01-2017(cont.)NormalAkron Children'S HospitalComment on above:Result Comment: Average GFR for 40-49 years old: 99 mL/min/1.73sq mChronic Kidney Disease: <60 mL/min/1.73sq mKidney failure: <15 mL/min/1.73sq meGFR calculated using average adult body mass. Additional eGFR calculator available at:http://www.[employer]/multiple_crcl_2012.htmPerformed By: #### CDP, BMP, BNP, TROPI, DIME, PT, PTT ####[address] , [place] [address] Anion gap18 mmol/LHigh9-17[facility]S HospitalComment on above:Performed By: #### CDP, BMP, BNP, TROPI, DIME, PT, PTT ####[address] , [place] [address] BUN/CRE Hmkgj91Tgblnm5-97Tbpbj Tiffin HospitalComment on above:Performed By: #### CDP, BMP, BNP, TROPI, DIME, PT, PTT ####[address]T [place], [facility]83 Okuyqso2.9 mg/dLLow8.6-10.4[facility] Comment on above:Performed By: #### CDP, BMP, BNP, TROPI, DIME, PT, PTT ####[address] , [place] [address] Exgxahlz402 mmol/XZndnov21-671EcquwAkron Children'S HospitalComment on above:Performed By: #### CDP, BMP, BNP, TROPI, DIME, PT, PTT ####[address] , [place] [address] ZX848 mmol/RNcmosc51-04YrxptAkron Children'S HospitalComment on above:Performed By: #### CDP, BMP, BNP, TROPI, DIME, PT, PTT ####[address] , [place] [address] Creatinine0.60 mg/dLNormal0.50-0.90[facility]'S HospitalComment on above: Performed By: #### CDP, BMP, BNP, TROPI, DIME, PT, PTT ####[address] , [place] [address]([facility])[phone] (non-black) mL/min/{1.73_m2}Normal>60[facility]'S HospitalComment on above:Performed By: #### CDP, BMP, BNP, TROPI, DIME, PT, PTT ####[address] , [place] [address]([facility])[phone] mass naik580 mg/zDYjfh72-62 [facility] HospitalComment on above:Performed By: #### CDP, BMP, BNP, TROPI, DIME, PT, PTT ####[address] , [place] [address]([facility])[phone] molar conc3.3 mmol/LLow3.7-5.3MMain Campus Medical Center Comment on above:Performed By: #### CDP, BMP, BNP, TROPI, DIME, PT, PTT ####[address] , [place] [address] Sodium 139 mmol/UAxyokv444-378YhbkbAkron Children'S HospitalComment on above:Performed By: #### CDP, BMP, BNP, TROPI, DIME, PT, PTT ####[address] [place] [address] Staging:[facility] Butler HospitalComment on above:Result Comment: Stage 1: Some kidney damage normal GFRStage 2: Mild kidney damage GFR 60-89Stage 3:Moderate kidney damage GFR 30-59Stage 4: Severe kidney damage GFR 15-29Stage 5: Severe kidney damage GFR <15ESRD - chronic treatment by dialysis or transplantPerformed at [address] [place] [address] ([phone] By: #### CDP, BMP, BNP, TROPI, DIME, PT, PTT ####[address] [place] [address] Urea nitrogen7 mg/dLNormal6-20[facility]S HospitalComment on above:Performed By: #### CDP, BMP, BNP, TROPI, DIME, PT, PTT ####[address] [place] [address] Glucose mass vxju970 mg/dLCritically ifvu42-59RliieMain Campus Medical CenterComment on above:Performed By: #### CDP, BMP, BNP, TROPI, DIME, PT, PTT ####[address] [place] [address] (cont.)[facility] Comment on above:Result Comment: Average GFR for 40-49 years old: 99 mL/min/1.73sq mChronic Kidney Disease: <60 mL/min/1.73sq mKidney failure: <15 mL/min/1.73sq meGFR calculated using average adult body mass. Additional eGFR calculator available at:http://www.[employer]/multiple_crcl_2012.htmPerformed By: #### CDP, BMP, BNP, TROPI, DIME, PT, PTT ####[address] , [place] [address]([facility])[phone] gap21 mmol/LHigh9-17[facility] HospitalComment on above:Performed By: #### CDP, BMP, BNP, TROPI, DIME, PT, PTT ####[address] , [place] [address]([facility])[phone]/CRE Hfkij26Xwxlxm2-48Zxldl Tiffin HospitalComment on above:Performed By: #### CDP, BMP, BNP, TROPI, DIME, PT, PTT ####[address] [place], [place] [address]([facility])[phone] mg/dLNormal8.6-10.4[facility] Comment on above:Performed By: #### CDP, BMP, BNP, TROPI, DIME, PT, PTT ####[address] , [place] [address] Kygznnat34 mmol/OJax72-552Aywmd Tiffin HospitalComment on above:Performed By: #### CDP, BMP, BNP, TROPI, DIME, PT, PTT ####[address] , [place] [address]([facility])[phone] mmol/YJxdbkh40-50BtitgAkron Children'S HospitalComment on above:Performed By: #### CDP, BMP, BNP, TROPI, DIME, PT, PTT ####[address] , [place] [address] Creatinine0.62 mg/dLNormal0.50-0.90[facility]'S HospitalComment on above: Performed By: #### CDP, BMP, BNP, TROPI, DIME, PT, PTT ####[address] , [place] [address]([facility])[phone] (non-black) mL/min/{1.73_m2}Normal>60[facility]S HospitalComment on above:Performed By: #### CDP, BMP, BNP, TROPI, DIME, PT, PTT ####[address] [place] [address] Potassium molar conc3.5 mmol/LLow 3.7-5.3MMain Campus Medical CenterComment on above:Performed By: #### CDP, BMP, BNP, TROPI, DIME, PT, PTT ####[address] , [facility]83 Rvfcqt831 mmol/MLwcxbh018-493SutoaAkron Children'S HospitalComment on above:Performed By: #### CDP, BMP, BNP, TROPI, DIME, PT, PTT ####[address] [address] Staging:NormalAkron Children'S HospitalComment on above:Result Comment: Stage 1: Some kidney damage normal GFRStage 2: Mild kidney damage GFR 60-89Stage 3:Moderate kidney damage GFR 30-59Stage 4: Severe kidney damage GFR 15-29Stage 5: Severe kidney damage GFR <15ESRD - chronic treatment by dialysis or transplantPerformed at [address] [place] [address] Performed By: #### CDP, BMP, BNP, TROPI, DIME, PT, PTT ####[address] [place] [address] Urea nitrogen9 mg/dL Normal6-20[facility]'S HospitalComment on above:Performed By: #### CDP, BMP, BNP, TROPI, DIME, PT, PTT ####[address] [place] [phone] Hydroxybutyrateon 67-41-7927Tkji Hydroxybutyrate0.74 mmol/LHigh0.02-0.27[facility]S HospitalComment on above:Result Comment: Performed at [address] [place] [address] Performed By: #### CDP, BMP, BNP, TROPI, DIME, PT, PTT ####[address] [place] [address] CBCon 09-01-2017 Erythrocyte distribution width Auto Ratio (RBC)12.6 %Koepgv43.8-14.4[facility]S HospitalComment on above:Performed By: #### CDP, BMP, BNP, TROPI, DIME, PT, PTT ####[address] [place] [address] Erythrocytes (RBC)4.39 10*6/uLNormal3.95-5.11[facility]S HospitalComment on above:Performed By: #### CDP, BMP, BNP, TROPI, DIME, PT, PTT ####[address] [place] [address] Erythrocytes (RBC)0.0 per 100 WBCNormal0.0[facility] Children'S HospitalComment on above:Result Comment: Performed at [address] [id number] [phone] Performed By: #### CDP, BMP, BNP, TROPI, DIME, PT, PTT ####[address] [place] [address] Hematocrit (HCT)39.2 % Cbmfkv79.3-47.1MMain Campus Medical CenterComment on above:Performed By: #### CDP, BMP, BNP, TROPI, DIME, PT, PTT ####[address] [place] [address] Hemoglobin mass conc (Bld)13.7 g/cFJgrzoy89.9-15.1 [facility] HospitalComment on above:Performed By: #### CDP, BMP, BNP, TROPI, DIME, PT, PTT ####[address] [place] [id number] WRF40.2 bnTcolgg04.2-33.5[facility]'S HospitalComment on above:Performed By: #### CDP, BMP, BNP, TROPI, DIME, PT, PTT ####[address] , [place] [address] MCHC mass conc (RBC)34.9 g/lVHuhu62.4-34.8Ak[facility] Children'S HospitalComment on above:Performed By: #### CDP, BMP, BNP, TROPI, DIME, PT, PTT ####[address], [facility]83 NFW77.3 gTAuzkct90.6-102.9[facility] Comment on above:Performed By: #### CDP, BMP, BNP, TROPI, DIME, PT, PTT ####[address] , [place] [address] Platelet mean volume (PMV)9.3 fLNormal8.1-13.5[facility]'S HospitalComment on above:Performed By: #### CDP, BMP, BNP, TROPI, DIME, PT, PTT ####[address] , [place] [address] Eobgnyxut752 10*3/uL Gyifoa696-965MqrowAkron Children'S HospitalComment on above:Performed By: #### CDP, BMP, BNP, TROPI, DIME, PT, PTT ####[address] , [place] [address] WBC (Leukocytes)9.0 10*3/uLNormal3.5-11.3MMain Campus Medical CenterComment on above:Performed By: #### CDP, BMP, BNP, TROPI, DIME, PT, PTT ####[address] , [facility]83 S-Hafey Teston 30-35-1136S-Dimer Test0.23 mg/L FEUNormal0.19-0.50[facility] Comment on above:Result Comment: Elevated levels [...] PE (negative predictive value of 98%).Performed at [address] [place] [address] Performed By: #### CDP, BMP, BNP, TROPI, DIME, PT, PTT ####[address] [facility]83 ED Provider Noteon [id number] IP Note OR TranscriptionNormalAshtabula County Medical Center HospitalLithiumon 80-52-9724Kccodng8.8 mmol/LNormal0.6-1.2Mer[facility] Island HospitalComment on above: Result Comment: Performed at [address] [place] [address] Performed By: #### CDP, BMP, BNP, TROPI, DIME, PT, PTT ####[address] [place] [address] Date last dose,NOT REPORTEDNormalMercy Block Island HospitalComment on above:Performed By: #### CDP, BMP, BNP, TROPI, DIME, PT, PTT ####[address] , [phone] amount,NOT REPORTEDNormalMercy Block Island HospitalComment on above:Performed By: #### CDP, BMP, BNP, TROPI, DIME, PT, PTT ####[address] , [place] [phone] last dose,NOT REPORTEDNormalMercy Block Island HospitalComment on above:Performed By: #### CDP, BMP, BNP, TROPI, DIME, PT, PTT ####[address] [facility]83 Magnesiumon 09-01-2017 Magnesium1.5 mg/dLLow1.6-2.6Mer[facility] Backus HospitalComment on above:Result Comment: Performed at [address] [place] [address] Performed By: #### CDP, BMP, BNP, TROPI, DIME, PT, PTT ####[address] [place] [address] Troponinon 69-62-2947Tuglfskw I.cardiac mass concNormalAkron Children'S Hospital Comment on above:Result Comment: Reference Range: <0.03 Within reference range. 0.03-0.09 Possible myocardial damage.Repeat at appropriate intervals to rule out chronic elevation. >= 0.10 Indicative of myocardial damage.Patients with high levels of Biotin oral intake (i.e >5mg/day) may have falsely decreased Troponin T levels. Samples collected within 8 hours of biotin intake may require additional information for diagnosis.Performed at [address] [place] [address] Performed By: #### CDP, BMP, BNP, TROPI, DIME, PT, PTT ####[address] [place] [address] Troponin T.cardiac mass concug/LNormal<0.03Ak[facility] Children'S HospitalComment on above:Result Comment: Troponin T results cannot be compared to Troponin-I results.Performed By: #### CDP, BMP, BNP, TROPI, DIME, PT, PTT ####[address] [place] [address] Urinalysis, Routineon [id number] REPORTEDNoLutheran Hospital Comment on above:Performed By: #### CDP, BMP, BNP, TROPI, DIME, PT, PTT ####[address] [place] [address] Urinalysis,Microon 55-48-5248Wfvimmsqof, RenalNOT JMIPEMNSNhtxqf2Wuwpf Block Island HospitalComment on above:Performed By: #### CDP, BMP, BNP, TROPI, DIME, PT, PTT ####[address] [place] [address] Mucus StrandsNOT REPORTEDNormalNONEMercy Block Island HospitalComment on above:Performed By: #### CDP, BMP, BNP, TROPI, DIME, PT, PTT ####[address] , [place] [address] Other ObservationsNOT REPORTEDNormal NREQMercy Block Island HospitalComment on above:Performed By: #### CDP, BMP, BNP, TROPI, DIME, PT, PTT ####[address] [place] [address] TrichomonasNOT REPORTEDNormalNONEMercy Block Island HospitalComment on above:Performed By: #### CDP, BMP, BNP, TROPI, DIME, PT, PTT ####[address] [place] [address] Urine, amorphous sediment presence in sedimentNOT REPORTEDNormalNONEMercy Block Island HospitalComment on above:Performed By: #### CDP, BMP, BNP, TROPI, DIME, PT, PTT ####[address] , [facility]83 Urine, casts in sedimentNOT REPORTEDNormalMercy Block Island HospitalComment on above:Performed By: #### CDP, BMP, BNP, TROPI, DIME, PT, PTT ####[address] , [place] [address] Urine, crystals in sedimentNOT REPORTED NormalNONEMercy Block Island HospitalComment on above:Performed By: #### CDP, BMP, BNP, TROPI, DIME, PT, PTT ####[address] [place] [id number] Urine, yeast presence in sedimentNOT REPORTEDNormalNONEMercy Block Island HospitalComment on above:Performed By: #### CDP, BMP, BNP, TROPI, DIME, PT, PTT ####[address] [place] [address] Venous Blood Gaseson 80-14-3296Rvoyyosqory (HCO3)21.2 mmol/L Low24.0-30.0[facility] Children'S HospitalComment on above:Performed By: #### CDP, BMP, BNP, TROPI, DIME, PT, PTT ####[address] , [facility]83 Body Temp.37.0NormalMerSaint Mary's HospitalComment on above: Result Comment: Performed at [address] [place] [address] Performed By: #### CDP, BMP, BNP, TROPI, DIME, PT, PTT ####[address] , [facility]83 CO235.0 mmol/YBmi04-17KgkewSaint Mary's HospitalComment on above:Performed By: #### CDP, BMP, BNP, TROPI, DIME, PT, PTT ####[address] [place] [address] Negative Base Excess2.8 mmol/LHigh0.0-2.0[facility] Children'S HospitalComment on above:Performed By: #### CDP, BMP, BNP, TROPI, DIME, PT, PTT ####[address] , [facility]83 O2 nwgeqgcwxo40.0 %Ushysw07.0-85.0[facility]'S HospitalComment on above:Performed By: #### CDP, BMP, BNP, TROPI, DIME, PT, PTT ####[address] [place] [address] Oxygen in arterial blood34.6 mm[Hg]Oroctl57.0-50.0[facility] Children'S HospitalComment on above: Performed By: #### CDP, BMP, BNP, TROPI, DIME, PT, PTT ####[address] [place] [address] pH of blood7.400 [pH] Normal7.32-7.42[facility] Children'S HospitalComment on above:Performed By: #### CDP, BMP, BNP, TROPI, DIME, PT, PTT ####[address]T [place], [facility]83 Allen TestNOT REPORTEDNormalAkron Children'S Hospital Comment on above:Performed By: #### CDP, BMP, BNP, TROPI, DIME, PT, PTT ####[address] [place] [address] OM1WKC WDJPDXPVKftevc22.0-55.0[facility]'S HospitalComment on above:Performed By: #### CDP, BMP, BNP, TROPI, DIME, PT, PTT ####[address] , [place] [address] HMZ1IIM REPORTEDNoLutheran Hospital Comment on above:Performed By: #### CDP, BMP, BNP, TROPI, DIME, PT, PTT ####[address] [place] [address] Hemoglobin mass conc (Bld)NOT GXELXBTWFyuqjo43.0-98.0[facility] Comment on above:Performed By: #### CDP, BMP, BNP, TROPI, DIME, PT, PTT ####[address] , [place] [address] ModeNOT REPORTEDNormalAkron Children'S HospitalComment on above:Performed By: #### CDP, BMP, BNP, TROPI, DIME, PT, PTT ####[address] [place] [address] Notification TimeNOT REPORTEDNormUniversity Hospitals Portage Medical CenterComment on above:Performed By: #### CDP, BMP, BNP, TROPI, DIME, PT, PTT ####[address] [place] [address] Notification:NOT REPORTEDNormalMerAshtabula County Medical Center HospitalComment on above:Performed By: #### CDP, BMP, BNP, TROPI, DIME, PT, PTT ####[address] [place] [address] O2 Device/Flow/%NOT REPORTEDNormalMerAshtabula County Medical Center HospitalComment on above:Performed By: #### CDP, BMP, BNP, TROPI, DIME, PT, PTT ####[address] [place] [address] PEEP/CPAPNOT REPORTEDNormalMerAshtabula County Medical Center HospitalComment on above:Performed By: #### CDP, BMP, BNP, TROPI, DIME, PT, PTT ####[address] , [place] [address]([facility])[phone] Adjst'd for Temp.NOT REPORTEDNormal7.320-7.420MerAshtabula County Medical Center HospitalComment on above:Performed By: #### CDP, BMP, BNP, TROPI, DIME, PT, PTT ####[address] [place] [address] fE5 Adj'd for Temp.NOT REPORTEDNormal 30.0-50.0[facility] HospitalComment on above:Performed By: #### CDP, BMP, BNP, TROPI, DIME, PT, PTT ####[address] [place] [address]([facility])[phone] Base ExcessNOT REPORTEDNormal0.0-2.0[facility] HospitalComment on above:Performed By: #### CDP, BMP, BNP, TROPI, DIME, PT, PTT ####[address] [place] [address] PSVNOT REPORTEDNormalMerAshtabula County Medical Center HospitalComment on above:Performed By: #### CDP, BMP, BNP, TROPI, DIME, PT, PTT ####[address] [place] [address] Pt. PositionNOT REPORTEDNormalMercy Block Island HospitalComment on above:Performed By: #### CDP, BMP, BNP, TROPI, DIME, PT, PTT ####[address] [place] [address] Respiratory rateNOT REPORTEDNormalMercy Block Island HospitalComment on above:Performed By: #### CDP, BMP, BNP, TROPI, DIME, PT, PTT ####[address] [place] [address] Set RateNOT REPORTEDNormalMercy Block Island HospitalComment on above:Performed By: #### CDP, BMP, BNP, TROPI, DIME, PT, PTT ####[address] [place] [address]([facility])[phone] DrawnNOT REPORTED NormalMercy Block Island HospitalComment on above:Performed By: #### CDP, BMP, BNP, TROPI, DIME, PT, PTT ####[address] [place] [address] Text for RespiratoryNOT REPORTEDNormalMercy Healthcy Block Island Hospital Comment on above:Performed By: #### CDP, BMP, BNP, TROPI, DIME, PT, PTT ####[address] [place] [address] Total HbNOT LJJVUTIUTtlbja29.0-16.0[facility] HospitalComment on above:Performed By: #### CDP, BMP, BNP, TROPI, DIME, PT, PTT ####[address] [place] [address] Total RateNOT REPORTEDNormalMercy Block Island HospitalComment on above:Performed By: #### CDP, BMP, BNP, TROPI, DIME, PT, PTT ####[address] [place] [address] VTNOT REPORTEDNoLutheran HospitalComment on above: Performed By: #### CDP, BMP, BNP, TROPI, DIME, PT, PTT ####[address] [place], [place] [address] XR CHEST (2 VW)on 93-70-4678OM CHEST (2 VW)FINAL REPORTEXAM: XR CHEST (2 VW)HISTORY: shortness of breath TECHNIQUE: Two-view chest PRIORS: None.FINDINGS: Lung marquez are clear. No consolidation, pleural effusion, or pneumothorax. Cardio mediastinal silhouette is unremarkable. Chest port and pacer noted. IMPRESSION: Impression: No acute disease. Interpreted by:LUIS Dykesigned by:Ko Lua MD09/01/17inal resultNoLutheran HospitalPROGRESSon [id number] ID: [id number]: Ben MurphyheyService: (none)Author Type: PhysicianType: Progress NotesFiled: 07/17/2017 10:07 AMNote Text:Heart and Vascular InstituteRobmescalero service unit and [place] Department of Cardiovascular MedicineOUTPATIENT VISIT DATE 07/17/17OUTPATIENT VISIT TYPENEWPRIMARY CARE PH YSICIAN:Cem Mario, [id number] [facility] [address]Kyqju: [phone]: [phone] COMPLAINT:Patient presents with:Cardiac ClearanceHISTORY OF PRESENT ILLNESS:Addie Jean Baptiste is a 42 year old female with a 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 The patient is facingankle surgery in the near future. The patient is usually seen at [facility] cardiology practice. She states that she [...] follow-up checkup in the near future in [place]. The patient hasnot had any problems with [...] 251-300 = 6 units 301-350 = 8 -081 = 10 unitsinsulin lispro (HUMALOG) 100 unit/mL [...] kg (196 lb) SpO2 96% BMI 35.85 kg/z1Bwofbdh: Well appearing, in no acute distress.Eyes: Conjunctiva [...] There there is no evidence of previous [place].I have personally reviewed the above Cardiovascular Medicine [...] first checkup of recently changed generator at [facility].4. Controlled type 2 diabetes mellitus without [...] diet.Follow-up with her primary cardiology provider at [facility] aspreviously directed.A copy of this consultation note will be provided to the requestingphysician by way of shared medical record or to the requesting physicianvia U.S. Mail.This document was generated utilizing SavingGlobalon dictation. I have reviewedand verified that the jose luis nts of the document are accurate with theexception of minor grammatical, spelling and punctuation errors.CONTACT INFORMATION:Thank you for allowing us to participate in the care of this very pleasantpatient. Please free to contact us if we can be of any furtherassistance.Ben De Jesus MD, FACCRobert and Pretty ZeeDepartment of Cardiovascular MedicineMercy Health St. Elizabeth Boardman Hospitalrt and Vascular InstituteJames Ville [id number] [facility].[place], [place] [address]Fxmmxa: [phone] NormalCPremier Health Upper Valley Medical CenterXR Lumbar Spine 2-3 Views (Standard)on 10-07-1825XH Lumbar Spine 2-3 Views (Standard)No acute osseous abnormality. If symptoms persist, further evaluation with MRI would be recommended. [facility] Workstation ID: [id number] Interpretation CodeFUGreenplum Software [facility]OSPITALXR Lumbar Spine 2-3 Views (Standard) EXAMINATION: XR LUMBAR SPINE 2-3 VIEWS (STANDARD) HISTORY: ORDERING SYSTEM PROVIDED HISTORY: back pain, TECHNOLOGIST PROVIDED HISTORY: Reason for exam: Pt states she was at [employer] eating and then upon leaving went to [...] ra diographs 01/30/2014. FINDINGS: There are 5 mzi-nel-qaxdmob lumbar-type vertebral bodies in anatomic alignment. Mineralization is within normal limits. No acute fracture or dislocation. The sacroiliac joint spaces are unremarkable. Surgical clips are seen within the right upper quadrant of the abdomen.Invalid Interpretation CodeTequila Mobile [facility]OSPITALXR Lumbar Spine 2-3 Views (Standard) Interface, Rad In Pacs Powerscribe - 06/27/2017 12:48 AM EST EXAMINATION: XR LUMBAR SPINE 2-3 VIEWS(STANDARD) HISTORY: ORDERING SYSTEM PROVIDED HISTORY: back pain, TECHNOLOGIST PROVIDED HISTORY: Reason for exam: Pt states she was at [employer] eating and then upon leaving went to [...] Lumbar radiographs 01/30/2014. FINDINGS: There are 5 rdh-vqa-ylmdvar lumbar-type vertebral bodies in anatomic alignment. Mineralization is within normal limits. No acute fracture or dislocation. The sacroiliac joint spaces are unremarkable. Surgical clips are seen within the right upper quadrant of the abdomen. IMPRESSION: No acute osseous abnormality. If symptoms persist, further evaluation with MRI would be recommended. [facility] Workstation ID: [id number] Invalid Interpretation CodeFUAMINATA JIT Solaire [facility]PITALXR Thoracic Spine 3 Views (Standard)on [id number] Thoracic Spine 3 Views (Standard)No acute bony abnormalities. [facility] Workstation ID: [id number] Interpretation CodeFUFORREST GENERAL HOSPITALXR Thoracic Spine 3 Views (Standard)EXAMINATION: XR THORACIC SPINE 3 VIEWS (STANDARD) HISTORY: ORDERING SYSTEM PROVIDED HISTORY: back pain, TECHNOLOGIST PROVIDED HISTORY: Reason for exam: Pt states she was at [employer] eating and then upon leaving went to [...] no acute fractures or dislocations. Invalid Interpretation CodePARKWOOD BEHAVIORAL HEALTH SYSTEM Thoracic Spine 3 Views (Standard)Interface, Rad In Pacs Powerscribe - 06/26/2017 9:04 PM EST EXAMINATION: XR THORACIC SPINE 3 VIEWS (STANDARD) HISTORY: ORDERING SYSTEM PROVIDED HISTORY: back pain, TECHNOLOGIST PROVIDED HISTORY: Reason for exam: Pt states she was at [employer] eating and then upon leaving went to [...] or dislocations. IMPRESSION: No acute bony abnormalities. Hypereight/[employer] Workstation ID: [id number] Interpretation CodeFUJI SYNAPSE ESSEX OHIOCult,Urineon [id number],UrineSpecimen Description .URINE Performed at [address] [place] [address] ([phone] Special Requests NOT REPORTEDCulture ESCHERICHIA COLI >385608 CFU/ML Performed at [address] [address] ([phone] Report Status FINAL 02/17/2017SUSCEPTIBILITYOrganism ECMethod MICAmikacin NOT [...] REPORTEDTobramycin <=1 SUSCEPTIBLETrimethoprim/Sulfa >=320 RESISTANTPiperacillin/Tazobactam <=4 S USCEPTIBLENormalAkron Children'S HospitalComment on above:Performed By: #### CDP, BMP, BNP, TROPI, DIME, PT, PTT ####[address] [place] [address] APTTon 29-25-6662mTNU72.1 sLow23.2-34.4[facility]'S HospitalComment on above:Result Comment: Performed at [address] [place] [address] ([phone] By: #### CDP, BMP, BNP, TROPI, DIME, PT, PTT ####[address] , [place] [address] Basic Metabolic Profon 02-16-2017(cont.)Normal [facility]S HospitalComment on above:Result Comment: Average GFR for 30-39 years old: 107 mL/min/1.73sq mChronic Kidney Disease: <60 mL/min/1.73sq mKidney failure: <15 mL/min/1.73sq meGFR calculated using average adult body mass. A dditional eGFR calculator available at:http://www.VideoElephant.com/multiple_crcl_2012.htmPerformed By: #### CDP, BMP, BNP, TROPI, DIME, PT, PTT ####[address] , [place] [address] Anion gap20 mmol/LHigh9-17[facility]'S HospitalComment on above:Performed By: #### CDP, BMP, BNP, TROPI, DIME, PT, PTT ####[address] , [place] [address] BUN/CRE Fmpnq66Sktofd 9-20[facility]S HospitalComment on above:Performed By: #### CDP, BMP, BNP, TROPI, DIME, PT, PTT ####[address] , [place] [address] Jshrmlg4.7 mg/dLNormal8.6-10.4[facility]S HospitalComment on above:Performed By: #### CDP, BMP, BNP, TROPI, DIME, PT, PTT ####[address] , [place] [address] Ijxnoekv16 mmol/LLow 98-107[facility]'S HospitalComment on above:Performed By: #### CDP, BMP, BNP, TROPI, DIME, PT, PTT ####[address] [place] [address] CN871 mmol/VWensrj21-78MkuqgAkron Children'S HospitalComment on above: Performed By: #### CDP, BMP, BNP, TROPI, DIME, PT, PTT ####[address] , [place] [address] Hktyxlzxaf2.71 mg/dL Normal0.50-0.90[facility]'S HospitalComment on above:Performed By: #### CDP, BMP, BNP, TROPI, DIME, PT, PTT ####[address], [place] [address] eGFR (non-black)mL/min/{1.73_m2}Normal>60[facility]'S HospitalComment on above:Performed By: #### CDP, BMP, BNP, TROPI, DIME, PT, PTT ####[address] , [place] [address] Glucose mass hcfb564 mg/gUKbyz36-96MqybfMain Campus Medical Center Comment on above:Performed By: #### CDP, BMP, BNP, TROPI, DIME, PT, PTT ####[address] , [place] [address] Potassium molar conc4.3 mmol/LNormal3.7-5.3MMain Campus Medical CenterComment on above:Performed By: #### CDP, BMP, BNP, TROPI, DIME, PT, PTT ####[address] , [facility]83 Uvojxy050 mmol/LLow 135-144[facility]'S HospitalComment on above:Performed By: #### CDP, BMP, BNP, TROPI, DIME, PT, PTT ####[address] , [place] [address] Staging:NormalAkron Children'S HospitalComment on above:Result Comment: Stage 1: Some kidney damage normal GFRStage 2: Mild kidney damage GFR 60-89Stage 3:Moderate kidney damage GFR 30-59Stage 4: Severe kidney damage GFR 15-29Stage 5: Severe kidney damage GFR <15ESRD - chronic treatment by dialysis or transplantPerformed at [address] [place] [address] Performed By: #### CDP, BMP, BNP, TROPI, DIME, PT, PTT ####[address] [place] [address] Urea nitrogen8 mg/dLNormal6-20[facility]S HospitalComment on above:Performed By: #### CDP, BMP, BNP, TROPI, DIME, PT, PTT ####[address] [place] [address] Brain Natri. Peptideon 07-91-4642PII NormalAkron Children'S HospitalComment on above:Result Comment: Pro-BNP Reference Range:Rule Out: <300Grey Zone: Age <50 300-450 Age 50-75 300-900 Age >75 300- 1800Usually represents mild to moderate HF but other cardiopulmonary causes caroline ot be ruled out.Rule In: Age <50 >450 Age 50-75 >900 Age >75 >1800Performed at [address] [place] [address] Performed By: #### CDP, BMP, BNP, TROPI, DIME, PT, PTT ####[address] [place] [address] OVU061 pg/mLNormal<300 [facility]S HospitalComment on above:Result Comment: Pro-BNP results cannot be compared to BNP results.Performed By: #### CDP, BMP, BNP, TROPI, DIME, PT, PTT ####[address] [place] [address] CBC with Diffon 83-19-4339Cnp. Basophil0.00 k/uLNormal0.0-0.2MMain Campus Medical Center Comment on above:Result Comment: Performed at [address] [place] [address] Performed By: #### CDP, BMP, BNP, TROPI, DIME, PT, PTT ####[address] [place] [address] Abs.Neutrophil (Seg)8.70 k/uLHigh1.8-7.7[facility] Comment on above:Performed By: #### CDP, BMP, BNP, TROPI, DIME, PT, PTT ####[address] [place] [address] Basophils/100 WBC Auto (Bld)0 %NormalAkron Children'S HospitalComment on above: Performed By: #### CDP, BMP, BNP, TROPI, DIME, PT, PTT ####[address] [place] [address] Kzyblfetnxw8.10 10*3/uL Normal0.0-0.4[facility]'S HospitalComment on above:Performed By: #### CDP, BMP, BNP, TROPI, DIME, PT, PTT ####[address] [place] [address] Eosinophils/100 leukocytes1 %[facility] Comment on above:Performed By: #### CDP, BMP, BNP, TROPI, DIME, PT, PTT ####[address] [place] [address] Erythrocyte distribution width Auto Ratio (RBC)11.9 %Low12.1-15.2MMain Campus Medical CenterComment on above:Performed By: #### CDP, BMP, BNP, TROPI, DIME, PT, PTT ####[address] [place] [address] Erythrocytes (RBC)5.01 10*6/uLNormal4.0-5.2Mer[facility] Island HospitalComment on above:Performed By: #### CDP, BMP, BNP, TROPI, DIME, PT, PTT ####[address] [address] Hematocrit (HCT)45.2 % Rvmvug77-44HejhiAkron Children'S HospitalComment on above:Performed By: #### CDP, BMP, BNP, TROPI, DIME, PT, PTT ####[address] , [place] [address] Hemoglobin mass conc (Bld)15.5 g/cXUyreta16.0-16.0[facility]S HospitalComment on above:Performed By: #### CDP, BMP, BNP, TROPI, DIME, PT, PTT ####[address] [place] [address] Seftclqooau3.00 10*3/uLNormal1.0-4.8[facility] Comment on above:Performed By: #### CDP, BMP, BNP, TROPI, DIME, PT, PTT ####[address] , [place] [address] Lymphocytes/100 mnopudxosa43 %NormalAkron Children'S HospitalComment on above: Performed By: #### CDP, BMP, BNP, TROPI, DIME, PT, PTT ####[address] , [place] [address] FVV74.0 qlErrzhn35-60 [facility]'S HospitalComment on above:Performed By: #### CDP, BMP, BNP, TROPI, DIME, PT, PTT ####[address] , [place] [address] MCHC mass conc (RBC)34.4 g/bTMtmzoc58-97LtbyaAkron Children'S Hospital Comment on above:Performed By: #### CDP, BMP, BNP, TROPI, DIME, PT, PTT ####[address] [place] [address] JOZ61.4 eFUjfvyq47-203ArbtqAkron Children'S HospitalComment on above:Performed By: #### CDP, BMP, BNP, TROPI, DIME, PT, PTT ####[address], [place] [address] Amhtxlyyl9.40 10*3/uLNormal0.2-0.8[facility]'S HospitalComment on above:Performed By: #### CDP, BMP, BNP, TROPI, DIME, PT, PTT ####[address] , [place] [address] Monocytes/100 leukocytes4 %NormalAkron Children'S HospitalComment on above:Performed By: #### CDP, BMP, BNP, TROPI, DIME, PT, PTT ####[address] , [place] [address]([facility])[phone] (Seg)77 %NormalAshtabula County Medical Center HospitalComment on above:Performed By: #### CDP, BMP, BNP, TROPI, DIME, PT, PTT ####[address] [place] [address] Platelet mean volume (PMV)8.1 fLNormal6.0-12.0[facility]'S HospitalComment on above:Performed By: #### CDP, BMP, BNP, TROPI, DIME, PT, PTT ####[address] [place] [address] Cbbmghrzf483 10*3/uL Rbqpid912-792ExxkpAkron Children'S HospitalComment on above:Performed By: #### CDP, BMP, BNP, TROPI, DIME, PT, PTT ####[address] [place] [address] WBC (Leukocytes)11.2 10*3/uLHigh3.5-11.0[facility] Comment on above:Performed By: #### CDP, BMP, BNP, TROPI, DIME, PT, PTT ####[address] [place] [address]([facility])[phone] Diff PerformedNOT REPORTEDNormalAkron Children'S HospitalComment on above:Performed By: #### CDP, BMP, BNP, TROPI, DIME, PT, PTT ####[address] , [place] [address] Erythrocyte morphologyNOT REPORTED NormalAkron Children'S HospitalComment on above:Performed By: #### CDP, BMP, BNP, TROPI, DIME, PT, PTT ####[address] , [place] [address] PlateletsNOT REPORTEDNormalAshtabula County Medical Center HospitalComment on above:Performed By: #### CDP, BMP, BNP, TROPI, DIME, PT, PTT ####[address] , [place] [address] WBC MorphologyNOT REPORTEDNoLutheran HospitalComment on above:Performed By: #### CDP, BMP, BNP, TROPI, DIME, PT, PTT ####[address] , [place] [phone]-Xynwf Teston [id number]-Dimer Test0.26 mg/L FEUNormal 0.19-0.50[facility] HospitalComment on above:Result Comment: Elevated levels of [...] PE (negative predictive value of 98%).Performed at [address] [place], [place] [address] ([phone] By: #### CDP, BMP, BNP, TROPI, DIME, PT, PTT ####[address] , [place] [address] ED Noteon [id number] IP Note OR TranscriptionNormalMercy Block Island HospitalHIM IP Note OR TranscriptionNormalMercy Block Island HospitalHIM IP Note OR Purchasing Buyer NormalMercy Block Island HospitalHIM IP Note OR TranscriptionNormalMercy Block Island HospitalHIM IP Note OR TranscriptionNormalMercy Block Island HospitalHIM IP Note OR TranscriptionNormalMercy Block [facility] HospitalHIM IP Note OR TranscriptionNormalMercy Block Island HospitalHIM IP Note OR TranscriptionNormalMercy Block Island HospitalHIM IP Note OR TranscriptionNormalMercy Block Island HospitalHIM IP Note OR Purchasing Buyer NormalMercy Block Island HospitalHIM IP Note OR TranscriptionNormalMercy Block Island HospitalED Provider Noteon [id number] IP Note OR TranscriptionNormalMercy Block Island HospitalPTon [id number] Coag RelTime (PPP)0.9 {INR}Normal0.9-1.2MercPremier Health Miami [facility] South HospitalComment on above:Result Comment: Performed at [address] [place] [address] ([phone] By: #### CDP, BMP, BNP, TROPI, DIME, PT, PTT ####[address] [place] [phone] time (PT) Coag time (PPP)9.7 sNormal 9.7-12.2MMain Campus Medical CenterComment on above:Performed By: #### CDP, BMP, BNP, TROPI, DIME, PT, PTT ####[address] [place] [address] Troponinon 89-14-4993Hcqhzvnc I.cardiac mass concTriHealth Bethesda Butler HospitalComment on above:Result Comment: Reference Range: <0.03 Within reference range. 0.03-0.09 Possible myocardial damage.Repeat at appropriate intervals to rule out chronic elevation. >= 0.10 Indicative of myocardial damage.Performed at [address] [place] [address] Performed By: #### CDP, BMP, BNP, TROPI, DIME, PT, PTT ####[address] [place] [address] Troponin T.cardiac mass concug/LNormal<0.03[facility] HospitalComment on above:Result Comment: Troponin T results cannot be compared to Troponin-I results.Performed By: #### CDP, BMP, BNP, TROPI, DIME, PT, PTT ####[address] [address] Troponin I.cardiac mass concNormalAshtabula County Medical Center HospitalComment on above:Result Comment: Reference Range: <0.03 Within reference range. 0.03-0.09 Possible myocardial damage.Repeat at appropriate intervals to rule out chronic elevation. >= 0.10 Indicative of myocardial damage.Performed at [address] [place] [address] [phone] By: #### CDP, BMP, BNP, TROPI, DIME, PT, PTT ####[address] , [place] [address] Troponin T.cardiac mass concug/LNormal<0.03[facility] HospitalComment on above:Result Comment: Troponin T results cannot be compared to Troponin-I results.Performed By: #### CDP, BMP, BNP, TROPI, DIME, PT, PTT ####[address] , [place] [address] UA w/Reflex Cultureon [id number] mass conc1+AbnormalNEGAshtabula County Medical Center HospitalComment on above:Performed By: #### CDP, BMP, BNP, TROPI, DIME, PT, PTT ####[address] [place] [address] Bilirubin (direct) NegativeNormalNEGAshtabula County Medical Center HospitalComment on above:Performed By: #### CDP, BMP, BNP, TROPI, DIME, PT, PTT ####[address] [address] Hemoglobin mass conc (Bld)TRACEAbnormalNEGMercy Block Island HospitalComment on above:Performed By: #### CDP, BMP, BNP, TROPI, DIME, PT, PTT ####[address] , [place] [address] Nitrite,UrPositiveAbnormalNEGMercy Block Island HospitalComment on above:Performed By: #### CDP, BMP, BNP, TROPI, DIME, PT, PTT ####[address] , [place] [address] TurbiditySLIGHTLY CLOUDY AbnormalCLEARMercPremier Health Miami Valley Hospital South HospitalComment on above:Performed By: #### CDP, BMP, BNP, TROPI, DIME, PT, PTT ####[address] [place] [address] Urine, colorYELLOWNormalYELMercy Block Island HospitalComment on above:Performed By: #### CDP, BMP, BNP, TROPI, DIME, PT, PTT ####[address] [place] [address] Urine, glucose presence 3+AbnormalNEGAshtabula County Medical Center HospitalComment on above:Performed By: #### CDP, BMP, BNP, TROPI, DIME, PT, PTT ####[address] [place] [address] Urine, leukocyte esterase presenceTRACEAbnormalNEGAshtabula County Medical Center HospitalComment on above:Result Comment: Performed at [address] [place], [facility]83 Performed By: #### CDP, BMP, BNP, TROPI, DIME, PT, PTT ####[address] [place] [address] Urine, pH7.0 [pH]Normal5.0-9.0[facility] HospitalComment on above:Performed By: #### CDP, BMP, BNP, TROPI, DIME, PT, PTT ####[address] [place] [address] Urine, protein presenceNegativeNormalNEGAshtabula County Medical Center HospitalComment on above:Performed By: #### CDP, BMP, BNP, TROPI, DIME, PT, PTT ####[address] [place] [address] Urine, specific gravity1.010Normal 1.010-1.020[facility] HospitalComment on above:Performed By: #### CDP, BMP, BNP, TROPI, DIME, PT, PTT ####[address] [place] [address] Urobilinogen,UrNormalNormalNORMAkron Children'S HospitalComment on above:Performed By: #### CDP, BMP, BNP, TROPI, DIME, PT, PTT ####[address] [place] [address] CommentNOT REPORTED NormalAkron Children'S HospitalComment on above:Performed By: #### CDP, BMP, BNP, TROPI, DIME, PT, PTT ####[address] [place] [address] Urinalysis,Microon 02-16-2017-----NormalAkron [facility]S Hospital Comment on above:Performed By: #### CDP, BMP, BNP, TROPI, DIME, PT, PTT ####[address] [place] [address] Urine WBC's10 TO 70Ipetzr7-3TsyfxAkron Children'S HospitalComment on above:Performed By: #### CDP, BMP, BNP, TROPI, DIME, PT, PTT ####[address] [place] [address] Urine, bacteria in sediment3+AbnormalNONEMercSaint Mary's HospitalComment on above:Result Comment: Performed at [address] [place] [address] Performed By: #### CDP, BMP, BNP, TROPI, DIME, PT, PTT ####[address] [place] [address] Urine, epithelial cells in sediment2 TO 5Normal 0-25Mer[facility] Island HospitalComment on above:Performed By: #### CDP, BMP, BNP, TROPI, DIME, PT, PTT ####[address] [place] [address] Urine, erythrocytes0 TO 7Uloozi2-2Upbsf Block Island HospitalComment on above:Performed By: #### CDP, BMP, BNP, TROPI, DIME, PT, PTT ####[address] [place] [address] Epithelial, Renal NOT KUKVITUZAiygkj5Idayu Block Island HospitalComment on above:Performed By: #### CDP, BMP, BNP, TROPI, DIME, PT, PTT ####[address] [place] [address] Mucus StrandsNOT REPORTEDNormalNONEMercy Block Island HospitalComment on above:Performed By: #### CDP, BMP, BNP, TROPI, DIME, PT, PTT ####[address] [place] [address] Other ObservationsNOT REPORTEDNormalNREQMercy Block Island HospitalComment on above: Performed By: #### CDP, BMP, BNP, TROPI, DIME, PT, PTT ####[address] [place] [address] TrichomonasNOT REPORTED NormalNONEMercy Block Island HospitalComment on above:Performed By: #### CDP, BMP, BNP, TROPI, DIME, PT, PTT ####[address] [place] [address] Urine, amorphous sediment presence in sedimentNOT REPORTED NormalNONEMercy Block Island HospitalComment on above:Performed By: #### CDP, BMP, BNP, TROPI, DIME, PT, PTT ####[address] [place] [phone], casts in sedimentNOT REPORTEDNoKettering Health HospitalComment on above:Performed By: #### CDP, BMP, BNP, TROPI, DIME, PT, PTT ####[address] [place] [address] Urine, crystals in sedimentNOT REPORTEDNoBeebe Medical Center HospitalComment on above: Performed By: #### CDP, BMP, BNP, TROPI, DIME, PT, PTT ####[address] [place] [phone], yeast presence in sedimentNOT REPORTEDSouth Coastal Health Campus Emergency Department HospitalComment on above:Performed By: #### CDP, BMP, BNP, TROPI, DIME, PT, PTT ####[address] [place] [address] XR CHEST PORTABLEon [id number] CHEST PORTABLEREPORT: Chest PA and lateralINDICATION: Chest painFINDINGS: The lungs are well expanded and clear bilaterally. No focal consolidation, pleural effusion or pneumothorax seen. Normal cardiac and mediastinal silhouettes. No free intraperitoneal air. Left-sided pacemaker in place. Right-sided Port-A-Cath in good position.Final report electronically signed by Stephany Villafana on 02/16/2017 10:40 AMIMPRESSION: Normal chestInterpreted by:LUIS Migueligned by:Stephany Villafana MD02/16/17Final resultNormUniversity Hospitals Portage Medical CenterLaboratory Studieson [id number] Drug Screen (T)[facility] Comment on above: TOXASSURE COMP DRUG [...] call . Urine Drug Screen Interpretation.[facility] CtrComment on above:See report. Scanned copy available in EMR. Performed at: [facility] [address] [id number] Correspondence Section Supervisor: Laura Damon MD, Phone: [phone] Vital Signs Date TimeVital SignValuePerforming PcrbecqhbSxvdzuyw37-44-9763 10:57-0500Body efdoko529.48 cmMitchell Rice DO Work Phone: [phone] [place], [place] 9963711-11-2025 10:57-0500 Body mass index (BMI) [Ratio]49.7 kg/x4Ysqqlrdf Rice DO Work Phone: [phone])[address] [place], [place] 9963711-11-2025 10:57-0500 Body kiihzfnhsuo57.8 [degF]Andrés Rice DO Work Phone: [phone] [place], [place] 9963711-11-2025 10:57-0500 Body edsaqo952.37 kgMitchell Rice DO Work Phone: 1(845)[address] [place], [place] [address]11-11-2025 10:57-0500 Diastolic blood nqozkibm45 mm[Hg]Andrés Rice DO Work Phone: 1(127)[address] [place], [place] [address]11-11-2025 10:57-0500 Heart rate81 /minMitchell Rice DO Work Phone: 1(596)[address] [place], [place] 9[address]11-11-2025 10:57-0500 Respiratory rate18 /minMitchell Rice DO Work Phone: [phone])[address] [place], [place] 9[address]11-11-2025 10:57-0500 SaO2% (BldA) [Mass fraction]99 %Andrés Rice DO Work Phone: [phone])[address] [place], [place] [address]11-11-2025 10:57-0500 Systolic blood ypqlxoar727 mm[Hg]Andrés Rice DO Work Phone: 1(974)[address] [place], [place] [address]96[address]10-02-2025 13:51-0400 Body .5 cmJustin Lavonne CLINICAL DOCUMENTATION SPECIALIST Work Phone: 1(880) [phone]jkvDscfjo22-26-6463 13:51-0400Body mass index (BMI) [Ratio]51.21 kg/q9Svsofq Lavonne CLINICAL DOCUMENTATION SPECIALIST Work Phone: 1(698) [phone]ydjbg46-79-8903 13:51-0400Body ogqkmq539.01 kg Mihai Lavonne CLINICAL DOCUMENTATION SPECIALIST Work Phone: OghhFbgtvd01-794249AgxmRfqxjz72-78-8699 13:51-0400Diastolic blood ekaqayju197 mm[Hg]Mihai Lavonne CLINICAL DOCUMENTATION SPECIALIST Work Phone: KfubCxnjkb43-394371OviaCwqdnx62-43-8893 13:51-0400Heart rate92 /minJustin Lavonne CLINICAL DOCUMENTATION SPECIALIST Work Phone: 1(444) [phone]jwfmt37-13-9309 13:51-0400Systolic blood pressure 133 mm[Hg]Mihai Lavonne CLINICAL DOCUMENTATION SPECIALIST Work Phone: JnxoLfvdwd51-310595RcpuDuymfq90-50-0161 09:58-0400Body vbolsb240.48 cm Andrés Rice DO Work Phone: 1([phone] [place], [place] 0409709-29-2025 09:58-0400 Body mass index (BMI) [Ratio]50.3 kg/n6Qtxmjrfg Rice DO Work Phone: 1(862)[address]09-29-2025 09:58-0400 Body hzndzxescvf66.4 [degF]Andrés Rice DO Work Phone: 1(605)6-[address] [place], [place] 0409709-29-2025 09:58-0400 Body tygqrw345.87 kgMitchell Rice DO Work Phone: 1(085)3-[address] [place], [place] [address]409709-29-2025 09:58-0400 Diastolic blood sjgykbli41 mm[Hg]Andrés Rice DO Work Phone: 1(902)5-[facility]09-29-2025 09:58-0400 Heart rate90 /minMitchell Rice DO Work Phone: [facility]09-29-2025 09:58-0400 Respiratory rate18 /minMitchell Rice DO Work Phone: 1(203)1-[address] [place], [place] 0[address]709-29-2025 09:58-0400 SaO2% (BldA) [Mass fraction]98 %Andrés Rice DO Work Phone: 1([phone] [place], [place] 2166609-29-2025 09:58-0400 Systolic blood byotgvgt675 mm[Hg]Andrés Rice DO Work Phone: [phone])[address]09-11-2025 10:47-0400 Body fpadid133.5 Alison Resendez MD Work Phone: 1(729)564-[address] [place], [place] [address]Jbsknrswvd25-48-3520 10:47-0400Body mass index (BMI) [Ratio]49.38 kg/c9PrhseSergio Resendez MD Work Phone: 1(623)[address] [place], [place] [address]Rbgfzqnqbq51-40-6271 10:47-0400Body vwatzf388.47 kgSergio Resendez MD Work Phone: 1(356)[address] [place], [place] [address]Fzaznnhdua34-98-4848 10:47-0400Diastolic blood vzhgplxi04 mm[Hg]Sergio Resendez MD Work Phone: [phone])[phone] [place], [place] [address]Gzaykevpzs77-87-5217 10:47-0400Heart rate78 /min Sergio Resendez MD Work Phone: 1(087)[address] [place], [place] [address]Ejzyldveoc07-98-2587 10:47-0400Respiratory rate18 /minSergio Resendez MD Work Phone: [phone])[address] [place], [place] [address]Ddigvranif34-26-8384 10:47-4976LoE6% (BldA) [Mass fraction]99 %Sergio Resendez MD Work Phone: [address] [place], [place] [address]Fdchlczfsj71-70-5265 10:47-0400Systolic blood mm[Hg]Sergio Resendez MD Work Phone: 1(228)497-[address] [place], [place] [address]Odojumzebb11-03-3495 12:15-0400Body temperature 98.71 [degF]Elda Aguirre MD Work Phone: [facility] Guapbr06-11-2993 12:15-0400Diastolic blood cifwswgg79 mm[Hg]Elda Aguirre MD Work Phone: [facility] Qfrgnl80-71-9638 12:15-0400Heart rate 82 /minElda Aguirre MD Work Phone: [facility] Hospitalvozero07-14-2025 12:15-0400 Respiratory rate14 /minElda Aguirre MD Work Phone: [facility] Ihwyfn30-75-1980 12:15-0400Systolic blood yqicleba316 mm[Hg]Elda Aguirre MD Work Phone: [facility] Hporgk81-01-8552 08:12-3440FyZ7% (BldA) [Mass fraction]94 %Elda Aguirre MD Work Phone: [facility] Hnqdgf41-49-0242 00:15-0400Body adqsfb383.5 cmElda Aguirre MD Work Phone: [facility] Glinwt64-38-2814 00:15-0400Body mass index (BMI) [Ratio]44.91 kg/k1CpcvdewElda Aguirre MD Work Phone: [facility] Hkweew28-07-4588 00:15-0400Body lvmwoa624.4 kgElda Aguirre MD Work Phone: [facility] Pbygki83-78-1499 10:55-0400Diastolic blood paepdzqm93 mm[Hg]Jim Velez DO Work Phone: 1(691) [phone]hmjti33-31-7727 10:55-0400Heart ybmq765 /min Jim Velez DO Work Phone: 1(898) [phone]iLhrkdh30-39-8155 10:55-8339VzH1% (BldA) [Mass fraction]98 %Jim Velez DO Work Phone: 1(714) [phone]xkgKkapas01-26-1294 10:55-0400Systolic blood pressure 121 mm[Hg]Jim Velez DO Work Phone: oh604-6630EozsThxcwv35-186583WhkxFeiuep55-47-1560 13:49-0400Body xhidqo940.48 cmNo [facility] Work Phone: 1(674) 412-987204-07-2025 13:49-0400Body mass index (BMI) [Ratio]51.2 kg/m2No [facility] Work Phone: 1(260) 291-241104-07-2025 13:49-0400Body scqyuytojwr75.6 [degF]No [facility] Work Phone: 1(980) 139-276304-07-2025 13:49-0400Body uxfzzm016.01 kgNo [facility] Work Phone: 1(398) 929-437204-07-2025 13:49-0400Diastolic blood mltwtmaf98 mm[Hg] No [facility] Work Phone: 1(322) 376-499204-07-2025 13:49-0400Heart rate94 /minG[facility] Work Phone: 1(181) 250-331404-07-2025 13:49-0400Respiratory rate16 /minTri[facility] Work Phone: 1(173) 478-803804-07-2025 13:49-8859PwJ0% (BldA) [Mass fraction]99 % No [facility] Work Phone: 1(701) 606-782604-07-2025 13:49-0400Systolic blood ambfkdrc503 mm[Hg] No [facility] Work Phone: 1(139) 564-479603-11-2025 15:13-0400Diastolic blood mm[Hg] Stephany RUBALCAVA-C Work Phone: oh041-1460BxqjEbulpx75-711109EpfmSxxaml99-42-2504 15:13-0400Systolic blood pressure 122 mm[Hg]Stephany RUBALCAVA-C Work Phone: oh030-5552SbreEapfku23-834075YyxaFsftcb41-96-6702 14:25-0400Body opvflf078.5 cm Stephany RUBALCAVA-C Work Phone: 1(963) [phone]qmbYvhwfm01-39-0153 14:25-0400Heart rate88 /minStephany Pelayo PA-C Work Phone: 1(341) [phone]PwfmQsarrc28-25-6298 14:25-9112FsM8% (BldA) [Mass fraction]95 %Stephany Pelayo PA-C Work Phone: 1(807) [phone]rjmLlofeq48-89-0022 10:57-0500Body qhgaxh814.5 cm Stephany Pelayo PA-C Work Phone: 1(700) [phone]jzkCtexze05-81-8804 10:57-0500Diastolic blood jgixnkcv69 mm[Hg]Stephany Pelayo PA-C Work Phone: 1(399) [phone]-322133WgppNorter13-42-2803 10:57-0500Heart rate87 /minStephany Pelayo PA-C Work Phone: 1(124) [phone]xooPxnuem80-11-3279 10:57-6312YaF5% (BldA) [Mass fraction]98 %Stephany Pelayo PA-C Work Phone: 1(364) [phone]46655WtrhSjqkoo98-57-2118 10:57-0500Systolic blood pressure 116 mm[Hg]Stephany Pelayo PA-C Work Phone: 1(552) [phone]-800176DxkbZtfvkk90-45-6947 08:26-0500Body ocvrzb108.5 cmSoto Dolce DPM FACFAS Work Phone: [facility] HospitalCukxmoauyn64-92-9462 08:26-0500Body mass index (BMI) [Ratio]42.62 kg/m2Marc Dolce DPM FACFAS Work Phone: [facility] HospitalZgdzxtunts71-58-2629 08:26-0500Body oekfgi224.69 kgMarc Dolce DPM FACFAS Work Phone: [facility] HospitalAcizchwyiv73-88-5575 08:26-0500Diastolic blood ekojwsbb26 mm[Hg]Soto Box DPM FACFAS Work Phone: [facility] HospitalWymapvpjhr61-51-7522 08:26-0500Heart rate77 /min Soto Box DPM FACFAS Work Phone: [facility] HospitalTedqdgynmu34-16-6432 08:26-0500Systolic blood whejavjm870 mm[Hg]Soto Box DPJoel FACFAS Work Phone: [facility] HospitalBofxpdwkwz60-32-6872 08:32-0500Body mxkrac982.5 cmJunemesio Elizalde CNP Work Phone: 1(869) [phone]ugjhy79-29-4407 08:32-0500Body mass index (BMI) [Ratio]51.32 kg/o1Qwkpybnemesio Elizalde CNP Work Phone: 1(150) [phone]rwePisbfm49-26-1867 08:32-0500Body haqudn028.28 kg Mihai Elizalde CNP Work Phone: 1(342) [phone]CrmsDvyamu27-29-1845 08:32-0500Diastolic blood kdhrszra138 mm[Hg]Mihai Elizalde CNP Work Phone: 1(847) [phone]244TrpcKuceco53-48-1815 08:32-0500Heart rate90 /minJunemesio Elizalde CNP Work Phone: 1(947) [phone]kybFtjtwc37-98-8564 08:32-0500Systolic blood pressure 173 mm[Hg]Mihai Elizalde CNP Work Phone: 1(597) [phone]88LlqvBwohnb88-20-0256 13:41-0500Respiratory rate16 /min Ali Kamille DO Work Phone: 1(780) [phone]QzxeMromta93-11-8019 11:37-0500Body xjbvjkblsfo29.5 [degF]Ali Kamille DO Work Phone: 1(286) [phone]gujYqblgx46-89-0215 11:37-0500Diastolic blood dgkmguah28 mm[Hg]Ali Kamille DO Work Phone: 1(845) [phone]auuVbmslv53-22-1948 11:37-0500Heart rate78 /minAli Kamille DO Work Phone: 1(228) [phone]gvRyxpaw78-81-1777 11:37-5748UmW4% (BldA) [Mass fraction]98 %Ali Kamille DO Work Phone: 1(706) [phone]yMoqiko12-91-6892 11:37-0500Systolic blood pressure 114 mm[Hg]Malcolm Fabianmi DO Work Phone: 1(568) [phone]47247GsquHtrhfd72-34-3122 03:00-0500Body mass index (BMI) [Ratio]51.73 kg/m2Ali Kamille DO Work Phone: 1(397) [phone]nvqRdwykd84-51-5625 03:00-0500Body sxcmuj783.3 kgAli Kamille DO Work Phone: 1(143) [phone]-991529CliyLrnrza29-67-8602 01:27-0500Body .5 cmAli Kamille DO Work Phone: 1(390) [phone]sisec13-41-3557 15:44-0500Diastolic blood rdplffja63 mm[Hg]Ruthy Dong MD Work Phone: 1(388) [phone]-848238BqzlUuaawv93-04-4359 15:44-0500Heart rate66 /minRuthy Dong MD Work Phone: 1(451) [phone]QvapVexoje21-48-6629 15:44-0500Respiratory rate18 /min Ruthy Dong MD Work Phone: 1(407) [phone]-364304GdecNizdeu49-02-6705 15:44-8289VfP7% (BldA) [Mass fraction]94 %Ruthy Dong MD Work Phone: 1(647) [phone]-596746EsuzIllbtl71-05-3619 15:44-0500Systolic blood pressure 149 mm[Hg]Ruthy Dong MD Work Phone: 1(590) [phone]918TurqBbbegi37-45-4126 11:24-0500Body hhjzvpjrcuo07.81 [degF]Ruthy Dong MD Work Phone: 1(192) [phone]197ChguHxxqil95-92-7713 04:29-0500Body mass index (BMI) [Ratio]49.84 kg/m2Ruthy Dong MD Work Phone: 1(469) [phone]87NcauGwkxei56-85-9263 04:29-0500Body avvtha413.6 kgRuthy Dong MD Work Phone: 1(696) [phone]owywj18-80-2568 01:58-0400Body xzypts688.5 Elvi Dong MD Work Phone: 1(806) [phone]cParbuc88-78-3863 11:23-0400Diastolic blood isoipqxv08 mm[Hg]Stephany Morales PA-C Work Phone: 1(696) [phone]ftckg87-42-4494 11:23-0400Systolic blood pressure 142 mm[Hg]Stephany McCague PA-C Work Phone: 1(996) [phone]avrpf51-74-1605 10:41-0400Body eavwua844.5 cm Stephany McCmanuela PA-C Work Phone: 1(143) [phone]aarii31-82-3757 10:41-0400Heart iabk839 /minLaura McCague PA-C Work Phone: 1(868) [phone]grqmg87-66-9629 10:41-3260WrH6% (BldA) [Mass fraction]98 %Stephany Walkerague PA-C Work Phone: 1(886) [phone]gyjiw21-79-6952 11:41-0400Diastolic blood pufycsma937 mm[Hg]Stephany Walkerague PA-C Work Phone: 1(693) [phone]mwzmn48-73-6599 11:41-0400Systolic blood pressure 193 mm[Hg]Stephany McCmanuela PA-C Work Phone: 1(143) [phone]Devwpq40-21-1204 11:03-0400Body jcqiit811.5 cm Stephany McCmanuela PA-C Work Phone: 1(743) [phone]pkdvw14-27-4132 11:03-0400Heart rate89 /minLaura McCague PA-C Work Phone: 1(352) [phone]okxvp51-87-9869 11:03-1760PxY2% (BldA) [Mass fraction]97 %Stephany McCmanuela PA-C Work Phone: 1(593) [phone]tjiqp88-47-2778 16:04-0400Body mass index (BMI) [Ratio]51.21 kg/p6SfwxeluuxJim Velez DO Work Phone: 1(407) [phone]kotog22-75-9902 16:04-0400Body yhvoai849.01 kg Jim Velez DO Work Phone: 1(554) [phone]qzfnr03-72-6471 16:04-0400Diastolic blood semdurwk654 mm[Hg]Jim Velez DO Work Phone: 1(105) [phone]ygmnx93-86-8200 16:04-0400Heart rate96 /min Jim Velez DO Work Phone: 1(489) [phone]jlpxl29-54-9888 16:04-0400Respiratory rate18 /min Jim Velez DO Work Phone: 1(574) [phone]tyinr86-35-6979 16:04-7443RmS6% (BldA) [Mass fraction]96 %Jim Velez DO Work Phone: 1(396) [phone]mamnn43-57-6956 16:04-0400Systolic blood pressure 181 mm[Hg]Jim Velez DO Work Phone: 1(744) [phone]cMazgld42-56-6929 13:36-0400Body fjwzca472.5 cm Rafaela Medrano CNP Work Phone: [facility]Comment on above:per kb53-20-7311 13:36-0400 Body mass index (BMI) [Ratio]51.03 kg/x2ThzvoulRafaela Ventural CLINICAL DOCUMENTATION SPECIALIST Work Phone: 1(770) [phone]wuuuj23-92-0190 13:36-0400Body bratsf347.55 kg Rafaela Medrano CLINICAL DOCUMENTATION SPECIALIST Work Phone: 1(326) [phone]zQahvsr78-78-7938 13:36-0400Diastolic blood xmjzbpty37 mm[Hg]Rafaela Ventural CLINICAL DOCUMENTATION SPECIALIST Work Phone: 1(855) [phone]TgmuTmreyw97-60-7866 13:36-0400Heart rate90 /min Rafaela Ventural CLINICAL DOCUMENTATION SPECIALIST Work Phone: 1(912) [phone]-414092JiqaAhqcrf52-22-1381 13:36-6240UzW0% (BldA) [Mass fraction]94 %Rafaela Medrano CLINICAL DOCUMENTATION SPECIALIST Work Phone: 1(100) [phone]OzumXgvurk25-45-1374 13:36-0400Systolic blood pressure 139 mm[Hg]Rafaela Medrano CLINICAL DOCUMENTATION SPECIALIST Work Phone: 1(381) [phone]lqefi43-77-5472 08:56-0400Respiratory rate16 /min Harshad Rizzo MD Work Phone: 1(282) [phone]-338448WlqePyybsh98-75-4074 08:18-0400Body cidhebffemg57.7 [degF]Harshad Rizzo MD Work Phone: FdnmTcqngd14-923711MgfdHsqfdo23-48-3554 08:18-0400Diastolic blood lhoqupfd26 mm[Hg]Harshad Rizzo MD Work Phone: 1(861) [phone]EmsnTrkuqp10-28-4325 08:18-0400Heart rate65 /Mariely Rizzo MD Work Phone: 1(264) [phone]55LkihCleeon01-44-4376 08:18-0400Systolic blood pressure 140 mm[Hg]Harshad Rizzo MD Work Phone: 1(286) [phone]ofrOunjjl69-83-0225 02:58-0400Body mass index (BMI) [Ratio]52.62 kg/m2Harshad Rizzo MD Work Phone: 1(386) [phone]WcumKztyvb31-71-6606 02:58-0400Body ojnzit941.5 kgHarshad Rizzo MD Work Phone: 1(171) [phone]mieRwvryv91-11-1119 02:58-6020QlE5% (BldA) [Mass fraction]94 %Harshad Rizzo MD Work Phone: KiqeWwfewv13-779388IlbjPvwood21-90-3241 14:36-0400Body tfespm076.5 Jose Rizzo MD Work Phone: 1(399) [phone]xayOrrkou82-86-8050 13:59-0400Diastolic blood maiaeuvv85 mm[Hg]Stephany Pelayo PA-C Work Phone: 1(856) [phone]jjlYkjsef65-49-7248 13:59-0400Systolic blood pressure 139 mm[Hg]Stephany Pelayo PA-C Work Phone: 1(888) [phone]oqiOyuwcd15-86-3797 13:38-0400Body ebbgyw593.5 cm Stephany Walkermanuela PA-C Work Phone: 1(974) [phone]rczSfbwmw89-12-9427 13:38-0400Heart rate96 /minStephany Walkermanuela PA-C Work Phone: 1(638) [phone]510RueoOledvc94-80-9269 13:38-8613UdF4% (BldA) [Mass fraction]95 %Stephany Walkermanuela PA-C Work Phone: oh040-2835YljgVajdzw56-892590VklbTdcxil02-42-0136 13:53-0400Body mass index (BMI) [Ratio]47.55 kg/e6OedparteqJim Velez DO Work Phone: 1(638) [phone]lpfJpklgt42-61-8134 13:53-0400Body tkujru542.94 kg Jim Velez DO Work Phone: 1(738) [phone]28SroqEcchgh75-27-0385 13:53-0400Diastolic blood oiuixwdi128 mm[Hg]Jim Velez DO Work Phone: 1(580) [phone]ohxOvnhvj54-37-0574 13:53-0400Heart rate91 /min Jim Velez DO Work Phone: 1(386) [phone]kbzTicolv29-01-5235 13:53-0400Respiratory rate18 /min Jim Velez DO Work Phone: 1(917) [phone]qmcIrrjoj64-64-3454 13:53-6654ElK7% (BldA) [Mass fraction]93 %Jim Velez DO Work Phone: 1(774) [phone]efdJsfwdu68-19-9734 13:53-0400Systolic blood pressure 166 mm[Hg]Jim Velez DO Work Phone: 1(196) [phone]40CdslCmjmen85-56-3480 13:53-0400Body hidwei811.5 cm Sahara Sanchez MD Work Phone: 1(634) [phone]bpcPweehj97-45-8528 13:53-0400Body mass index (BMI) [Ratio]49.93 kg/j1ZmytgcnSahara Sanchez MD Work Phone: 1(800) [phone]-020943QqdlAfzndz36-63-2003 13:53-0400Body myjibo588.83 kg Sahara Sanchez MD Work Phone: 1(362) [phone]ymoXfgizh11-41-1057 13:53-0400Diastolic blood kxhhqfny71 mm[Hg]Sahara Sanchez MD Work Phone: 1(963) [phone]ysvHhofcw72-09-4212 13:53-0400Heart rate92 /min Sahara Sanchez MD Work Phone: 1(358) [phone]-976272MxywSrcftj24-58-5269 13:53-0400Respiratory rate16 /min Sahara Sanchez MD Work Phone: 1(155) [phone]PjfwOriqyg84-02-0341 13:53-0400Systolic blood pressure 153 mm[Hg]Sahara Sanchez MD Work Phone: 1(514) [phone]bzsDqmjvd39-19-9018 15:34-0400Body bladoh948.5 cm Stephany Pelayo PA-C Work Phone: 1(977) [phone]qvdPcomgr97-63-5373 15:34-0400Body isltukyigvn75.01 [degF]Stephany Pelayo PA-C Work Phone: 1(499) [phone]fzuGmtyjz44-56-8671 15:34-0400Diastolic blood mm[Hg]Stephany Pelayo PA-C Work Phone: 1(761) [phone]MwqjCwglgu75-63-4968 15:34-0400Heart wwmr668 /minStephany Pelayo PA-C Work Phone: 1(990) [phone]ejdAyuexw61-78-9837 15:34-1390TmE9% (BldA) [Mass fraction]98 %Stephany Pelayo PA-C Work Phone: 1(733) [phone]12WmeyGtqikc19-85-3818 15:34-0400Systolic blood pressure 131 mm[Hg]Stephany Pelayo PA-C Work Phone: 1(107) [phone]-014999YdasVmgakj59-06-0817 15:47-0400Diastolic blood tsydsaem80 mm[Hg]Anders London MD Work Phone: [facility]06-17-2024 15:47-0400Heart rate90 /Arden London MD Work Phone: [facility]06-17-2024 15:47-0400Systolic blood agpupbeo048 mm[Hg]Anders London MD Work Phone: 1(344)0164050[facility]05-21-2024 11:49-0400 Diastolic blood kjtnvjga479 mm[Hg]Stephany Pelayo PA-C Work Phone: 1(299) [phone]vkyJeiqlc46-27-3620 11:49-0400Systolic blood pressure 169 mm[Hg]Stephany Pelayo PA-C Work Phone: 1(820) [phone]61046FkkdVjjqiv01-01-5301 11:24-0400Body wkspzipvnnd34 [degF]Stephany Pelayo PA-C Work Phone: 1(129) [phone]697AqgaPntqyw27-86-0306 11:24-0400Heart rate93 /minStephany Pelayo PA-C Work Phone: 1(891) [phone]ZhrkUpvgvb06-40-1205 11:24-0765FkW4% (BldA) [Mass fraction]95 %Stephany Pelayo PA-C Work Phone: 1(228) [phone]ankZnuqjd18-51-4725 15:04-0400Diastolic blood fxxsrebw19 mm[Hg]Zoë Garcia MD Work Phone: 1(325) [phone]75RqmcVdkmre43-73-7534 15:04-0400Heart rate98 /min Zoë Garcia MD Work Phone: 1(334) [phone]gfzTumfgl07-28-0145 15:04-0096GjI9% (BldA) [Mass fraction]96 %Zoë Garcia MD Work Phone: 1(909) [phone]-388978KtesVlucyo84-76-5376 15:04-0400Systolic blood pressure 169 mm[Hg]Zoë Garcia MD Work Phone: 1(361) [phone]-102381HuxkSiovgf74-52-3044 13:07-0400Diastolic blood eisjzmxd516 mm[Hg]Virgen Campos MD Work Phone: 1(246) [phone]-228745DvmjPbsfek06-18-1971 13:07-0400Heart rate97 /min Virgen Campos MD Work Phone: 1(794) [phone]kjaEbttgm74-49-8261 13:07-8258QsO8% (BldA) [Mass fraction]97 %Virgen Campos MD Work Phone: 1(718) [phone]-933394VcvtQnhckw64-97-1418 13:07-0400Systolic blood pressure 166 mm[Hg]Virgen Campos MD Work Phone: 1(815) [phone]26SmkfNfmnbs70-98-1236 14:30-0400Diastolic blood iexysjms89 mm[Hg]Stephany Pelayo PA-C Work Phone: 1(248) [phone]-875643RonlIoowto25-46-7862 14:30-0400Systolic blood pressure 138 mm[Hg]Stephany Pelayo PA-C Work Phone: 1(504) [phone]-327226GxpjFhpzdz62-10-8189 13:43-0400Body .5 cm Stephany Pelayo PA-C Work Phone: 1(782) [phone]wqnXmmneg90-78-6492 13:43-0400Body mass index (BMI) [Ratio]50.66 kg/y3BxhqsStephany Pelayo PA-C Work Phone: 1(686) [phone]lwrLiolqd71-48-2529 13:43-0400Body rdggrlyocee80.7 [degF]Stephany Pelayo PA-C Work Phone: 1(546) [phone]963LlwyCsrtzr31-30-0660 13:43-0400Body gilrem821.65 kg Stephany Pelayo PA-C Work Phone: 1(957) [phone]580WqlhQfpjtr71-11-9161 13:43-0400Heart rate91 /minStephany Pelayo PA-C Work Phone: 1(478) [phone]22SvpeSsgthw53-79-4748 13:43-2646WyF7% (BldA) [Mass fraction]98 %Stephany Pelayo PA-C Work Phone: 1(749) [phone]zgyZazzvz44-40-8693 19:31-0400Diastolic blood mm[Hg]Floyd Mercado MD Work Phone: 1(001)[address]04-03-2024 19:31-0400Systolic blood kzpgcsho483 mm[Hg]Floyd Mercado MD Work Phone: 1(845)[address] [place], [place] 3051604-03-2024 17:47-0400Body zokggosxmwb83.39 [degF]Floyd Mercado MD Work Phone: 1(790)[address] [place], [place] 3051604-03-2024 17:47-0400Heart lhms791 /minFloyd Mercado MD Work Phone: 1(426)[address] [place], [place] 3051604-03-2024 17:47-0400 Respiratory rate15 /minFloyd Mercado MD Work Phone: 1(092)[address] [place], [place] 3051604-03-2024 17:47-8890WqH4% (BldA) [Mass fraction]99 %Floyd Mercado MD Work Phone: 1(523)[address]03-11-2024 14:22-0400 Diastolic blood spgidlle35 mm[Hg]Zoë Garcia MD Work Phone: 1(900) [phone]303OcwhCkjnrz84-04-1096 14:22-0400Heart vkaf842 /min Zoë Garcia MD Work Phone: 1(151) [phone]294LwuyKnebps91-38-3232 14:22-0400Systolic blood pressure 140 mm[Hg]Zoë Garcia MD Work Phone: 1(968) [phone]uiyGhrcli04-32-1837 14:54-0500Diastolic blood tuamdciy07 mm[Hg]Harris Bhat MD Work Phone: 1(173) [phone]-491266CoyoLoydrt66-23-8660 14:54-0500Systolic blood pressure 162 mm[Hg]Harris Bhat MD Work Phone: 1(568) [phone]-926069NzmpOnzzpk19-48-3836 14:40-0500Body .5 cm Harris Bhat MD Work Phone: 1(664) [phone]bitHjahxx67-05-1950 14:40-0500Body weyhkqtccys60.39 [degF]Harris Bhat MD Work Phone: 1(327) [phone]-351730EohwUvmmig76-05-1088 14:40-0500Heart rate96 /minHarris Baht MD Work Phone: GimtXsirvk10-592040BvfwGtbthz52-08-8870 14:40-2110AnR8% (BldA) [Mass fraction]98 %Harris Bhat MD Work Phone: XhioWzkiyj97-032370JgjoRqnrvd89-35-5536 15:09-0500Body ulxylp645.5 cm Stephany Pelayo PA-C Work Phone: 1(303) [phone]16VsiyTtbcrt28-60-1572 15:09-0500Body mass index (BMI) [Ratio]47.55 kg/t6CtqjiStephany Pelayo PA-C Work Phone: OwuoBlmcms56-313322ZhgsJrfxxc97-37-9023 15:09-0500Body zjrwlwiibel85.3 [degF]Stephany Pelayo PA-C Work Phone: 1(979) [phone]qrcGmnuwb99-68-8761 15:09-0500Body ewjycj769.94 kg Stephany Pelayo PA-C Work Phone: 1(098)[phone]fjsSzhoyp04-68-2594 15:09-0500Diastolic blood ofapsfwp47 mm[Hg]Stephany Pelayo PA-C Work Phone: 1(190)[phone]97238CcmxXdttbc88-48-1285 15:09-0500Heart rate95 /minStephany Pelayo PA-C Work Phone: 1(454) [phone]-009006KtefPocmtj48-84-1708 15:09-5950XzK6% (BldA) [Mass fraction]97 %Stephany Pelayo PA-C Work Phone: 1(593)[phone]pnkVifxyn55-13-2298 15:09-0500Systolic blood pressure 138 mm[Hg]Stephany Pelayo PA-C Work Phone: 1(389) [phone]-275127WtrsUncfrj44-31-6607 11:40-0500Diastolic blood qwcviein495 mm[Hg]Stephany Pelayo PA-C Work Phone: 1(352) [phone]-841563XednYyommu28-12-4589 11:40-0500Systolic blood pressure 182 mm[Hg]Stephany Pelayo PA-C Work Phone: 1(516) [phone]-793383GqumAzeywy58-54-1775 11:31-0500Body mass index (BMI) [Ratio]47.76 kg/x6BvacxStephany Pelayo PA-C Work Phone: 1(160) [phone]aejDeimjz99-20-5289 11:31-0500Body qoflaifbdrj81.3 [degF]Stephany Pelayo PA-C Work Phone: 1(843) [phone]72OuuyRmervk79-32-3461 11:31-0500Body .43 kg Stephany Pelayo PA-C Work Phone: 1(185) [phone]oxxIgngzx37-99-8404 11:31-0500Heart rate94 /minStephany Pelayo PA-C Work Phone: 1(116) [phone]hybGrfmgp64-33-4205 11:31-7778TuL0% (BldA) [Mass fraction]98 %Stephany Pelayo PA-C Work Phone: 1(998) [phone]kwbNesayn02-67-6993 15:45-0500Body bgpemxosycd15.81 [degF]Ama Brenden KOPakpUnwyzd03-49-9688 15:45-0500Diastolic blood pressure 108 mm[Hg]Ama Brenden KNJhefItline39-72-9107 15:45-0500Heart rate72 /min Ama Aaronut CHBhbwYymsgr31-56-2560 15:45-0500Respiratory rate18 /minAma Aaronut BEEpzfAxozbf04-53-1242 15:45-3931TvK8% (BldA) [Mass fraction]96 %Ama Brenden LHEdwiFaynrw01-76-1035 15:45-0500Systolic blood iaatwxto656 mm[Hg]Ama Wilcox BLNjyvOclqux63-99-9124 15:14-0500Body cfyfqhtnlhh92.5 [degF]Keyla Johnson HPEDzgwAyhwrg22-33-3268 15:14-0500Diastolic blood axxjfvxr049 mm[Hg] Keyla Johnson JDXEtnmJwzrzw70-84-9577 15:14-0500Heart rate87 /min Keyla Johnson FPTFojlSqejbe97-95-3716 15:14-0500Respiratory rate13 /min Keyla Johnson XVDOdelYnfyvz23-30-3176 15:14-6858UsL3% (BldA) [Mass fraction]97 %Keyla Johnson BTFRhdiNtzipw98-29-1313 15:14-0500Systolic blood olkcfhez244 mm[Hg]Keyla Johnson MNNZsyfDisttz56-67-0783 16:30-0500 Body .1 [degF]Cece Colin ZXZqdeMpnjfo10-04-6455 16:30-0500 Diastolic blood snqriphc40 mm[Hg]Cece Colin UBRmqdTuyvnf86-81-6039 16:30-0500 Heart rate90 /minpita Colin XHKzdwRamwxs08-02-8959 16:30-0500Respiratory rate 17 /minCece Colin LDXwolKraoxo36-62-1273 16:30-9612QrC6% (BldA) [Mass fraction]98 %Cece Colin RWUoeoSiuuza01-75-5570 16:30-0500Systolic blood xtiudqru015 mm[Hg]Cece Colin RVOsujZbppjr58-17-8341 09:33-0500Body temperature 98.4 [degF]Nikko Pratt TILPkbwQwrykv31-44-7497 09:33-0500Diastolic blood stcwqivg92 mm[Hg]Nikko Terence JJKFbdaAntaef31-18-8040 09:33-0500Heart rate77 /min Nikko Terence JNAMvgjMsadub31-38-0318 09:33-0500Respiratory rate17 /minNikko Terence XSAFvybEyuznv02-80-0371 09:33-5718RoX0% (BldA) [Mass fraction]96 %Nikko Pratt KSYRkjuJefyhd05-70-0085 09:33-0500Systolic blood mm[Hg]Nikko Pratt AISSynvYvpuhi48-46-2070 12:04-0500Body laozlwdugaa14.1 [degF][facility] 12:04-0500Diastolic blood nxpnoxls38 mm[Hg][facility] HospitalUqraXuecpf01-10-3200 12:04-0500Heart rate78 /minLisa Padron [facility] 04-08-2023 12:04-0500Respiratory rate13 /minLisa Padron IXYfszIggoim72-30-3543 12:04-8552NsB4% (BldA) [Mass fraction]99 %Lisa Padron LKSzwmXkibll47-62-8296 12:04-0500Systolic blood knrnqpku774 mm[Hg]Lisa Padron ZCTscgTettrv31-25-4926 11:18-0500Body pbeprqxjroq57.71 [degF]Carlitos Carrera EXJQsjgBkpjpi97-60-3476 11:18-0500Diastolic blood mm[Hg]Carlitos Carrera [facility] 04-08-2023 11:18-0500Heart rate76 /minCarlitos Carrera WTKTmgyJkgcow22-16-2241 11:18-0500Respiratory rate16 /minCarlitos Carrera BALUyayXnsgrw00-19-4955 11:18-4174VmL1% (BldA) [Mass fraction]99 %Carlitos Carrera EJOIshyCiqacv67-37-6211 11:18-0500Systolic blood zeaxisac970 mm[Hg]Carlitos Carrera [facility] 04-01-2023 00:00-0500Body kdenzyoaswp67.6 [degF]Kassidy Wick [facility] 04-01-2023 00:00-0500Diastolic blood kmuygmbm41 mm[Hg]Kassidy Wick [facility] 04-01-2023 00:00-0500Heart rate60 /minKassidy Wick POMtszWbqriy86-81-9358 00:00-0500Respiratory rate16 /minKassidy Wick OLZdqtIjbabv66-06-6314 00:00-0500 SaO2% (BldA) [Mass fraction]100 %Kassidy Wick NNUnaaZxkxfb85-85-1018 00:00-0500 Systolic blood swaqszlo032 mm[Hg]Kassidy Wick TLShomGchfxf46-41-8272 11:57-0500 Body ykgowkoujez46.81 [degF]Harshad Rizzo MD Work Phone: 1(580) [phone]WotbXonlwb26-17-2876 11:57-0500Diastolic blood dduxqozq11 mm[Hg]Harshad Rizzo MD Work Phone: 1(109) [phone]-851881QqxxSxfyyh47-01-1043 11:57-0500Heart rate65 /Mariely Rizzo MD Work Phone: 1(410) [phone]-361930WnanXxfmml35-10-1305 11:57-2738KgL7% (BldA) [Mass fraction]98 %Harshad Rizzo MD Work Phone: 1(581) [phone]KddjNqcypt10-93-9968 11:57-0500Systolic blood pressure 97 mm[Hg]Harshad Rizzo MD Work Phone: 1(569) [phone]-086255KygcSgyaeu95-42-9117 07:23-0500Respiratory rate15 /min Harshad Rizzo MD Work Phone: 1(752) [phone]9-553791PswuTiapgq44-48-1352 14:38-0500Body rmlsvo926.5 Jose Rizzo MD Work Phone: 1(809) [phone]-999055TizcEibcuu10-94-6281 14:38-0500Body mass index (BMI) [Ratio]46.81 kg/m2Harshad Rizzo MD Work Phone: 1(218) [phone]-975022WsrkFvlvpe98-19-8518 14:38-0500Body libmrb249.1 kgHarshad Rizzo MD Work Phone: 1(496) [phone]-591337MxqpIegtgo20-79-0039 08:00-0400Respiratory rate16 /min Harshad Rizzo MD Work Phone: 1(220) [phone]-053919EblsWtnabd99-52-6853 07:36-0400Body .9 [degF]Harshad Rizzo MD Work Phone: 1(247) [phone]-581072JrldIgjqzb91-96-1537 07:36-0400Diastolic blood mm[Hg]Harshad Rizzo MD Work Phone: 1(939) [phone]WrhnVristt78-12-3539 07:36-0400Heart rate89 /minSher Matthias STEVENS Work Phone: 1(766) [phone]49574GouzRpyjac16-67-6288 07:36-4507WmQ2% (BldA) [Mass fraction]99 %Harshad Rizzo MD Work Phone: DjsiIowssv85-729312DedaCocywq37-07-7875 07:36-0400Systolic blood pressure 111 mm[Hg]Harshad Rizzo MD Work Phone: 1(846) [phone]-395505FntvOcogro13-18-9042 04:34-0400Body mass index (BMI) [Ratio]46.53 kg/m2Harshad Rizzo MD Work Phone: 1(796) [phone]ueovo33-41-4095 04:34-0400Body dahuee968.4 kgHarshad Rizzo MD Work Phone: 1(800) [phone]boyod34-45-9700 02:46-0400Body .5 Jose Rizzo MD Work Phone: 1(500) [phone]emmfl31-61-6392 15:24-0400Body cleekj748.5 cm Josué Mellis DO Work Phone: 1(693) [phone]nblia88-90-2111 15:24-0400Body mass index (BMI) [Ratio]45.73 kg/p0Bsqga Mellis DO Work Phone: 1(177) [phone]svpqy61-96-6848 15:24-0400Body gzdust680.4 kg Josué Mellis DO Work Phone: 1(629) [phone]cweor84-12-6338 06:43-0400Diastolic blood xcujjchj04 mm[Hg]Jocelyn Bowen MD Work Phone: 1(603) [phone]hBqviei80-52-2400 06:43-0400Heart rate62 /minJocelyn Bowen MD Work Phone: [phone] 06:43-9228SxM2% (BldA) [Mass fraction]96 %Jocelyn Bowen MD Work Phone: XhnazFssfzd19-528194PdeneUhrlsn13-55-1018 06:43-0400Systolic blood meynixdd99 mm[Hg]Jocelyn Bowen MD Work Phone: [phone]cWyxlet06-94-3818 19:48-0400Body alzjlbcxlfc17.59 [degF]Jocelyn Bowen MD Work Phone: HwrnuSkohcf90-358078BtonoKgrptg05-67-9014 19:48-0400Respiratory rate17 /Robin Bowen MD Work Phone: 1(572) [phone]DvedzXdmoyj85-32-8303 18:21-0400Diastolic blood yiyadcbe984 mm[Hg]Preston Charli [address]05-15-2023 18:21-0400Heart etsu899 /minPreston Lugo [address] [place], [place] 2615905-15-2023 18:21-0400Mean blood lnfvlily421 mm[Hg]Preston Lugo [address] [place], [place] 2615905-15-2023 18:21-0400 Respiratory rate18 /minPreston Lugo [address] [place], [place] 2615905-15-2023 18:21-5471UbC6% (BldA) [Mass fraction]99 %Preston Lugo [address] [place], [place] 2615905-15-2023 18:21-0400 Systolic blood uffjjmto216 mm[Hg]Preston Lugo [address] [place], [place] 2615905-15-2023 17:00-0400 Diastolic blood mm[Hg]Preston Lugo [address] [place], [place] 2615905-15-2023 17:00-0400Heart yyuj616 /minPreston Lugo [address]05-15-2023 17:00-0400Mean blood yftpuwzk422 mm[Hg]Preston Lugo [address] [place], [place] 2615905-15-2023 17:00-0400 Respiratory rate16 /minPreston Lugo [address] [place], [place] 2615905-15-2023 17:00-2496CtA4% (BldA) [Mass fraction]97 %Preston Lugo [address] [place], [place] 2615905-15-2023 16:00-0400 Diastolic blood tanmkdwv097 mm[Hg]Preston Lugo [address]05-15-2023 16:00-0400Mean blood dsechatj272 mm[Hg]Preston Lugo [address] [place], [place] 2615905-15-2023 16:00-4170UrR9% (BldA) [Mass fraction]100 %Preston Lugo [address] [place], [place] 2615905-15-2023 16:00-0400 Systolic blood bbyknnll459 mm[Hg]Preston Lugo [address]05-15-2023 14:26-0400Body ykrcqodhdew55.24 [degF]Preston Lugo [address] [place], [place] 2615905-15-2023 14:26-0400Heart roww958 /Jhonathan Lugo [address] [place], [place] 2615904-24-2023 15:00-0400 Hourly RoundingManinder Kinza [facility]04-24-2023 15:00-0400 Promise to ReturnManinder Kinza [facility]04-24-2023 14:00-0400 Hourly RoundingManinder Kinza [facility]04-24-2023 14:00-0400 Promise to ReturnPepe Clearyer [address] [place], [place] 7545004-24-2023 13:00-0400 Hourly RoundingWaterfordranodlph Clearyer [address] [place], [place] 7545004-24-2023 13:00-0400 Promise to ReturnPepe Clearyer [address] [place], [place] 7545004-24-2023 12:00-0400Blood Pressure LocationWaterfordrandolph Clearyer [address] [place], [place] 5760104-24-2023 12:00-0400Body jyuqtemroqh43.06 [degF]Peperandolph Clearyer [address] [place], [place] 5760104-24-2023 12:00-0400 Diastolic blood jqlpwapz64 mm[Hg]Peperandolph Clearyer [address]04-24-2023 12:00-0400Heart rate59 /minPepe Clearyer [address] [place], [place] 7545004-24-2023 12:00-0400Mean blood mm[Hg]Peperandolph Clearyer [address] [place], [place] 7545004-24-2023 12:00-0400 Respiratory rate16 /minPepe Clearyer [address] [place], [place] 7545004-24-2023 12:00-6187SiM3% (BldA) [Mass fraction]96 %Pepe Clearyer [address] [place], [place] 7545004-24-2023 12:00-0400 Systolic blood hjlfewzf968 mm[Hg]Peperandolph Clearyer [address] [place], [place] 7545004-24-2023 08:35-0400 Diastolic blood mm[Hg]Pepe Kinza [address] [place], [place] 7545004-24-2023 08:35-0400Heart rate72 /minPepe Clearyer [address] [place], [place] 5760104-24-2023 08:35-0400 Systolic blood ubayuijw014 mm[Hg]Pepe Kinza [address] [place], [place] 5760104-24-2023 08:00-0400Heart rate68 /minManinder Kinza [address] [place], [place] 5760104-24-2023 08:00-0400Mean blood fevhxlku570 mm[Hg]Pepe Kinza [address] [place], [place] 5760104-24-2023 08:00-4638DiP6% (BldA) [Mass fraction]94 %Pepe Kinza [address] [place], [place] 5760104-24-2023 01:00-0400Body ihsomovppyk13.88 [degF]Pepe Kinza [address] [place], [place] 5760104-24-2023 01:00-0400Heart rate61 /minManrandolph Kinza [address] [place], [place] 5760104-24-2023 01:00-1470NwN3% (BldA) [Mass fraction]96 %Pepe Kinza [address] [place], [place] 5760104-23-2023 16:00-0400Blood Pressure LocationWaterfordrandolph Kinza [address] [place], [place] 5760104-23-2023 16:00-0400Heart rate94 /minManinder Kinza [address] [place], [place] 7545004-23-2023 16:00-0400Mean blood arfavhdi676 mm[Hg]Pepe Kinza [address] [place], [place] 7545004-23-2023 12:00-0400Heart zhrx851 /minManinder Kinza [address] [place], [place] 5760104-23-2023 07:00-0400Heart rate90 /minManrandolph Kinza [address] [place], [place] 5760104-22-2023 23:58-0400Heart rate91 /minManinder Kinza [facility]04-22-2023 21:01-0400Heart rate92 /minManinder Kinza [facility]04-22-2023 16:08-0400gluc 132 mg/dLManinder Kinza [address] [place], [place] 7545004-22-2023 12:30-0400gluc 85 mg/dLManinder Kinza [address] [place], [place] 7545004-22-2023 07:21-0400gluc 122 mg/dLManinder Kinza [address] [place], [place] 7545004-21-2023 19:20-0400Mean blood xxwiqagn755 mm[Hg]Pepe Kinza [address] [place], [place] 7545004-21-2023 16:45-0400 Respiratory rate18 /minManinder Kinza [facility]04-21-2023 07:12-0400Body pafoan375.48 cmNP-C Kip Soviak Work Phone: [phone]-[facility]04-21-2023 07:12-0400 Body cjpcnyfngkq38 [degF]GENERATION MANAGER-C Kip Soviak Work Phone: [phone]-[facility]04-21-2023 07:12-0400 Body ufdtin242.39 kgNP-C Kip Soviak Work Phone: [phone]-[facility] [facility]04-21-2023 07:12-0400 Diastolic blood zpeuircr74 mm[Hg]GENERATION MANAGER-C Kip Soviak Work Phone: 1(134)367-[facility]04-21-2023 07:12-0400 Heart rate98 /minNP-C Kip Soviak Work Phone: 1(507)011-[facility]04-21-2023 07:12-0400 Respiratory rate16 /minNP-C Kip Soviak Work Phone: 1(479)[address] [place], [place] 2686604-21-2023 07:12-0400 SaO2% (BldA) [Mass fraction]97 %GENERATION MANAGER-C Kip Soviak Work Phone: 1(179)[address] [place], [place] 2686604-21-2023 07:12-0400 Systolic blood vsfdvcru197 mm[Hg]GENERATION MANAGER-C Kip Soviak Work Phone: [phone])[address] [place], [place] 2686603-31-2023 14:55-0400 Body vragpvpowhj26.2 [degF]GENERATION MANAGER-C Kip Soviak Work Phone: 1(574)[address] [place], [place] 2686603-31-2023 14:55-0400 Diastolic blood mm[Hg]GENERATION MANAGER-C Kip Soviak Work Phone: 1(045)[address] [place], [place] 2686603-31-2023 14:55-0400 Heart rate77 /minNP-C Kip Soviak Work Phone: 1(118)[address] [place], [place] 2686603-31-2023 14:55-0400 Respiratory rate20 /minNP-C Kip Soviak Work Phone: 1(300)[address] [place], [place] 2686603-31-2023 14:55-0400 SaO2% (BldA) [Mass fraction]96 %GENERATION MANAGER-C Kip Soviak Work Phone: 1(820)[address] [place], [place] 2686603-31-2023 14:55-0400 Systolic blood oimpmabe586 mm[Hg]GENERATION MANAGER-C Kip Soviak Work Phone: 1(294)[address] [place], [place] 2686603-31-2023 06:00-0400 Body kgNP-C Kip Soviak Work Phone: 1(501)[address] [place], [place] 2686603-29-2023 16:45-0400 Body zuxlmw012.48 cmNP-C Kip Soviak Work Phone: 1(687)[address] [place], [place] 2686603-29-2023 02:34-0400 Diastolic blood sowxvrgl28 mm[Hg]GENERATION MANAGER-C Kip Soviak Work Phone: 1(847)629-[address] [place], [place] 6015503-29-2023 02:34-0400 Heart rate72 /minNP-C Kip Soviak Work Phone: 1(695)491-[address] [place], [place] 6015503-29-2023 02:34-0400 Respiratory rate18 /minNP-C Kip Soviak Work Phone: 1(410)658-[address] [place], [place] 6015503-29-2023 02:34-0400 SaO2% (BldA) [Mass fraction]100 %GENERATION MANAGER-C Kip Soviak Work Phone: 1(012)[address]03-29-2023 02:34-0400 Systolic blood tumqwzap847 mm[Hg]GENERATION MANAGER-C Kip Soviak Work Phone: 1(355)[address]03-28-2023 21:42-0400 Body hrokbn157.48 cmNP-C Kip Soviak Work Phone: 1(078)[address]03-28-2023 21:42-0400 Body eodjngrfvvz19.6 [degF]GENERATION MANAGER-C Kip Soviak Work Phone: 1(844)[address]03-28-2023 21:42-0400 Body .1 kgNP-C Kip Soviak Work Phone: 1(875)[address]03-28-2023 20:27-0400 Diastolic blood rdaolugw958 mm[Hg]Santos Velez [facility]03-28-2023 20:27-0400Heart fqzb501 /Vanesa Velez [facility]03-28-2023 20:27-0400Mean blood iwdgdnjz477 mm[Hg]Santos Velez [facility]03-28-2023 20:27-0400 Respiratory rate23 /minSantos Velez [facility]03-28-2023 20:27-1901JxS0% (BldA) [Mass fraction]97 %Santos Velez [address]03-28-2023 20:27-0400 Systolic blood omhxyttj077 mm[Hg]Santos Velez [address]03-28-2023 18:00-0400 Diastolic blood uncbjxfi15 mm[Hg]Santos Velez [address] [place], [place] 1981003-28-2023 18:00-0400 Respiratory rate18 /minSantos Velez [address]03-28-2023 18:00-0400 Systolic blood mm[Hg]Santos Velez [address] [place], [place] 1981003-28-2023 17:04-0400Body xifoafrpjkp32.7 [degF]Santos Velez [address] [place], [place] 1981003-28-2023 17:04-0400 Diastolic blood gfwofxbx819 mm[Hg]Santos Velez [address]03-28-2023 17:04-0400Heart dcmu660 /Vanesa Velez [address] [place], [place] 2615903-28-2023 17:04-0400 Respiratory rate16 /minSantos Velez [address] [place], [place] 2615903-28-2023 17:04-6998EqW4% (BldA) [Mass fraction]98 %Santos Velez [address] [place], [place] 2615903-28-2023 17:04-0400 Systolic blood jehlhyrf473 mm[Hg]Santos Velez [address] [place], [place] 1981001-09-2023 20:00-0500 Diastolic blood wieiptsh32 mm[Hg][facility] 20:00-0500Heart rate92 /[facility]01-09-2023 20:00-0500Mean blood jyamzjpi584 mm[Hg][facility]01-09-2023 20:00-0500Respiratory rate17 /[facility]01-09-2023 20:00-4047LvL9% (BldA) [Mass fraction] 100 %[facility]01-09-2023 20:00-0500Systolic blood mogqqkyk720 mm[Hg][facility]01-09-2023 19:00-0500Diastolic blood jzvwrefc86 mm[Hg][facility]01-09-2023 19:00-0500Heart rate97 /[facility]01-09-2023 19:00-0500Mean blood mm[Hg][facility]01-09-2023 19:00-0929FdO4% (BldA) [Mass fraction]99 %[facility]01-09-2023 19:00-0500Systolic blood pressure 154 mm[Hg][facility]01-09-2023 18:00-0500 Diastolic blood jmegncun45 mm[Hg][facility] 06-02-2022 18:00-0500Heart rate96 /[facility]01-09-2023 18:00-0500Mean blood zkagaffs950 mm[Hg][facility]01-09-2023 18:00-4450XzX9% (BldA) [Mass fraction]98 %[facility]01-09-2023 18:00-0500Systolic blood pressure 178 mm[Hg][facility]01-09-2023 15:50-0500Body ipnjbjvtygk45.7 [degF]Astrit [facility]01-09-2023 15:50-0500Heart ihys184 /[facility] 06-02-2022 15:50-0500Respiratory rate18 /[facility]12-22-2022 16:18-0500Body .24 [degF]Santos Velez [address] [place], [place] 2615912-22-2022 16:18-0500 Diastolic blood onzriacs14 mm[Hg]Santos Velez [address] [place], [place] 1981012-22-2022 16:18-0500Heart rate99 /minSantos Velez [address] [place], [place] 2615912-22-2022 16:18-0500 Respiratory rate18 /katelynSantos Velez [address] [place], [place] 1981012-22-2022 16:18-8723BdA6% (BldA) [Mass fraction]97 %Santos Velez [address] [place], [place] 2615912-22-2022 16:18-0500 Systolic blood javrcmjl987 mm[Hg]Santos Velez [address] [place], [place] 2615911-16-2022 10:00-0500 Hourly RoundingPatrick SAILAJA [address] [place], [place] 2615911-16-2022 10:00-0500 Promise to ReturnPatrick SAILAJA [address] [place], [place] 2615911-16-2022 09:00-0500 Hourly RoundingPatrick SAILAJA [address] [place], [place] 2615911-16-2022 09:00-0500 Promise to ReturnPatrick SAILAJA [address] [place], [place] 2615911-16-2022 08:51-0500 Diastolic blood yogfosgz40 mm[Hg]Ashutosh SAILAJA [address]11-16-2022 08:51-0500 Systolic blood pilppejn32 mm[Hg]Ashutosh MENARD [address]11-16-2022 08:19-0500Heart rate63 /minPatrick SAILAJA [address] [place], [place] 1981011-16-2022 08:19-0500 Respiratory rate18 /minPatrick SAILAJA [address]11-16-2022 08:14-0500Heart rate61 /minPatrick SAILAJA [address] [place], [place] 1981011-16-2022 08:14-0500 Respiratory rate18 /minPatrick SAILAJA [address] [place], [place] 1981011-16-2022 08:03-0500Blood Pressure LocationPatrick SAILAJA [address]11-16-2022 08:03-0500Body .52 [degF]Ashutosh MENARD [address] [place], [place] 2615911-16-2022 08:03-0500 BP/Pulse Patient PositionPatrick SAILAJA [address] [place], [place] 2615911-16-2022 08:03-0500 Diastolic blood kvvcijnk81 mm[Hg]Ashutosh MENARD [address] [place], [place] 2615911-16-2022 08:03-0500Heart rate62 /minPatrick SAILAJA [address] [place], [place] 2615911-16-2022 08:03-0500Mean blood cgxlulmi09 mm[Hg]Ashutosh MORELOSSLIN [address]11-16-2022 08:03-0500 Respiratory rate18 /minPatrick SAILAJA [address] [place], [place] 1981011-16-2022 08:03-6715CwR6% (BldA) [Mass fraction]96 %Ashutosh MENARD [address] [place], [place] 1981011-16-2022 08:03-0500 Systolic blood mm[Hg]Ashutosh MENARD [address] [place], [place] 1981011-16-2022 08:00-0500 Hourly RoundingAshutosh MENARD [address] [place], [place] 1981011-16-2022 08:00-0500 Promise to ReturnAshutosh MENARD [address] [place], [place] 1981011-16-2022 04:30-0500Blood Pressure LocationAshutosh MENARD [address] [place] 1981011-16-2022 04:30-0500Body udafyfjsgsp55.8 [degF]Ashutosh MENARD [address] [place], [place] 2615911-16-2022 04:30-0500 BP/Pulse Patient PositionAshutosh MENARD [address] [place], [place] 1981011-16-2022 04:30-0500 Diastolic blood avzlpxzj30 mm[Hg]Ashutosh MENARD [address] [place], [place] 2615911-16-2022 04:30-6664ByZ3% (BldA) [Mass fraction]95 %Ashutosh MENARD [address] [place], [place] 2615911-16-2022 04:30-0500 Systolic blood vdvhjsje585 mm[Hg]Ashutosh MENARD [address] [place], [place] 1981011-15-2022 22:36-0500Blood Pressure LocationAshutosh MENARD [address] [place], [place] 1981011-15-2022 22:36-0500Body btsojmhgjdq33.16 [degF]Ashutosh MORELOSSLIN [address] [place], [place] 1981011-15-2022 22:36-0500 BP/Pulse Patient PositionPafrancesca MORELOSSLIN [address] [place], [place] 1981011-15-2022 22:36-0500Mean blood qcbnagtn46 mm[Hg]Ashutosh MORELOSSLIN [address] [place], [place] 1981011-15-2022 22:36-2553OwJ7% (BldA) [Mass fraction]97 %Ashutosh MORELOSSLIN [address] [place], [place] 1981011-15-2022 20:27-0500Body .7 [degF]Ashutosh MORELOSSLIN [address] [place] 1981011-15-2022 20:27-0500Mean blood xxwhiriz53 mm[Hg]Ashutosh MORELOSSLIN [address] [place], [place] 1981011-15-2022 16:55-0500Mean blood mm[Hg]Ashutosh MORELOSSLIN [address] [place], [place] 1981011-15-2022 12:18-0500gluc 133 mg/dLPafrancesca MORELOSSLIN [address] [place], [place] 1981011-15-2022 11:39-0500Body uldbbksneup56.06 [degF]Ashutosh MORELOSSLIN [address] [place], [place] 1981011-15-2022 04:35-0500Mean blood gaadzvms30 mm[Hg]Ashutosh MORELOSSLIN [address] [place], [place] 1981011-15-2022 04:00-0500gluc 124 mg/dLPakasimakenna MORELOSSAILAJA [address] [place], [place] 1981011-15-2022 01:00-0500Mean blood xmuazlcf86 mm[Hg]Ashutosh MORELOSSLIN [address]11-14-2022 16:28-0500gluc 383 mg/dLPatrick SAILAJA [address] [place], [place] 1981011-14-2022 07:00-0500Heart rate80 /minPatrick SAILAJA [address] [place], [place] 1981011-14-2022 03:54-0500Heart rate95 /minPatrick SAILAJA [address] [place], [place] 1981011-14-2022 03:02-0500 Diastolic Blood Pressure Bxfoybkb934 mm[Hg]Ashutosh SAILAJA [address]11-14-2022 03:02-0500Heart rate95 /minPatrick SAILAJA [address] [place], [place] 1981011-14-2022 03:02-0500Mean blood eigugsiq000 mm[Hg]Ashutosh SAILAJA [address]11-14-2022 03:02-0500 Respiratory rate18 /minPatrick SAILAJA [address]11-14-2022 03:02-0500 Systolic blood bnyfvbuh833 mm[Hg]Ashutosh SAILAJA [address]11-14-2022 02:28-0500 Diastolic Blood Pressure Btldbkbg435 mm[Hg]Ashutosh SAILAJA [address]11-14-2022 02:28-0500Mean blood uzmiotzo402 mm[Hg]Ashutosh SAILAJA [address]11-14-2022 02:28-0500 Respiratory rate12 /minPatrick SAILAJA [address]11-14-2022 02:28-0500 Systolic blood qtzmyzov918 mm[Hg]Ashutosh SAILAJA [facility]11-14-2022 01:05-0500 Diastolic Blood Pressure Kvqprvpf62 mm[Hg]Ashutosh MENARD [address] [place], [place] 2615911-14-2022 01:05-0500Mean blood lfcsuncp340 mm[Hg]Ashutosh MENARD [address]11-14-2022 01:05-0500 Respiratory rate17 /minPafrancesca MENARD [address]11-14-2022 01:05-0500 Systolic blood moqxddbx881 mm[Hg]Ashutosh MENARD [address]10-06-2022 17:30-0400 Diastolic blood jewzjeqq72 mm[Hg]Gui Schafer [address]10-06-2022 17:30-0400Heart ivpg241 /minTim Gilmar [address] [place], [place] 2615910-06-2022 17:30-0400Mean blood eddqbhio569 mm[Hg]Gui Schafer [address] [place], [place] 2615910-06-2022 17:30-0400 Respiratory rate13 /minTim Gilmar [address] [place], [place] 2615910-06-2022 17:30-5798YgO3% (BldA) [Mass fraction]99 %Gui Schafer [address] [place], [place] 2615910-06-2022 17:30-0400 Systolic blood skvgygbr821 mm[Hg]Gui Schafer [address] [place], [place] 2615910-06-2022 17:00-0400 Diastolic blood yaeejhtq604 mm[Hg]Gui Schafer [address] [place], [place] 2615910-06-2022 17:00-0400Heart rate92 /minTim Gilmar [address] [place], [place] 1981010-06-2022 17:00-0400Mean blood prpuxxif523 mm[Hg]Gui Schafer [address] [place], [place] 1981010-06-2022 17:00-3101EzQ5% (BldA) [Mass fraction]98 %Gui Schafer [address] [place], [place] 1981010-06-2022 17:00-0400 Systolic blood mm[Hg]Gui Schafer [address] [place], [place] 1981010-06-2022 16:30-0400 Diastolic blood rraelvxk610 mm[Hg]Gui Schafer [address] [place], [place] 1981010-06-2022 16:30-0400Heart rate96 /minGui Schafer [address] [place], [place] 1981010-06-2022 16:30-0400Mean blood ddiwxvap871 mm[Hg]Gui Schafer [address] [place], [place] 1981010-06-2022 16:30-0400 Respiratory rate24 /minGui Schafer [address] [place], [place] 1981010-06-2022 16:30-6545AvC1% (BldA) [Mass fraction]97 %Gui Schafer [address] [place], [place] 1981010-06-2022 16:30-0400 Systolic blood wxtggcve841 mm[Hg]Gui Schafer [address] [place], [place] 1981010-06-2022 12:31-0400gluc 256 mg/dLGui Schafer [address] [place], [place] 1981010-06-2022 12:31-0400gluc Gui Schafer [address] [place], [place] 1981010-06-2022 11:57-0400Body eolblmcypvb52.88 [degF]Gui Schafer [address] [place], [place] 1981010-06-2022 11:57-0400Heart rate99 /minGui Gilmar [address] [place], [place] 2615910-06-2022 11:57-0400 Respiratory rate18 /minTim Gilmar [address] [place], [place] 2615909-30-2022 14:53-0400Body vzpupbyanwa53.24 [degF]Santos Velez [address] [place], [place] 2615909-30-2022 14:53-0400 Diastolic blood tbwybjbl704 mm[Hg]Santos Velez [address] [place], [place] 2615909-30-2022 14:53-0400Heart ceto056 /minSantos Velez [address] [place], [place] 2615909-30-2022 14:53-0400 Respiratory rate18 /minSantos Velez [address]09-30-2022 14:53-1284CuP4% (BldA) [Mass fraction]97 %Santos Velez [address] [place], [place] 2615909-30-2022 14:53-0400 Systolic blood osxymfhc777 mm[Hg]Santos Velez [address] [place], [place] 2615909-02-2022 14:21-0400 Diastolic blood zsycgrat796 mm[Hg]rPeston Lugo [address] [place], [place] 2615909-02-2022 14:21-0400Heart rate89 /minPreston Lugo [address] [place], [place] 2615909-02-2022 14:21-0400Mean blood oxjxjmyy601 mm[Hg]Preston Lugo [address] [place], [place] 2615909-02-2022 14:21-0400 Respiratory rate16 /minPreston Lugo [address] [place], [place] 2615909-02-2022 14:21-4481TiJ0% (BldA) [Mass fraction]99 %Preston Lugo [address] [place], [place] 2615909-02-2022 14:21-0400 Systolic blood fnigpiel515 mm[Hg]Preston Lugo [address]09-02-2022 12:55-0400 Diastolic blood ecwviqku633 mm[Hg]Preston Lugo [address] [place], [place] 2615909-02-2022 12:55-0400Heart rate87 /minPreston Lugo [address]09-02-2022 12:55-0400Mean blood vwyupgks932 mm[Hg]Preston Lugo [address]09-02-2022 12:55-0400 Respiratory rate16 /minPreston Lugo [address] [place], [place] 2615909-02-2022 12:55-2718MhL9% (BldA) [Mass fraction]99 %Preston Lugo [address] [place], [place] 2615909-02-2022 12:55-0400 Systolic blood jixasixp288 mm[Hg]Preston Lugo [address] [place], [place] 2615909-02-2022 12:30-0400 Hourly RoundingPreston Lugo [address] [place], [place] 2615909-02-2022 12:30-0400 Promise to ReturnPreston Lugo [address] [place], [place] 2615909-02-2022 10:46-0400Body oplyxxhiekh43.78 [degF]Preston Lugo [address] [place], [place] 2615909-02-2022 10:46-0400 Diastolic blood nmxpkaag92 mm[Hg]Preston Lugo [address] [place], [place] 2615909-02-2022 10:46-0400Heart rate89 /Jhonathan Lugo [address]09-02-2022 10:46-0400Mean blood emuyikmg830 mm[Hg]Preston Lugo [address] [place], [place] 2615909-02-2022 10:46-0400 Respiratory rate18 /minJofariba Lugo [address] [place], [place] 2615909-02-2022 10:46-6724ImX4% (BldA) [Mass fraction]99 %Preston Lugo [address] [place], [place] 2615909-02-2022 10:46-0400 Systolic blood pigsznci992 mm[Hg]Preston Lugo [address]08-18-2022 22:00-[address] [facility]-18-2022 22:00-[address] [facility]08-18-2022 21:47-[address] [facility]08-18-2022 21:47-[address] [facility]08-18-2022 20:00-[address] [facility]08-18-2022 20:00-[address] [facility]08-18-2022 18:00-0400 Diastolic blood sxhvuhlc82 mm[Hg][facility] 01-09-2022 18:00-0400Heart rate94 /[facility] 01-09-2022 18:00-0400Mean blood mhziogph064 mm[Hg][facility]08-18-2022 18:00-8540SqA2% (BldA) [Mass fraction]98 %[facility]08-18-2022 18:00-0400Systolic blood nqpuogmx696 mm[Hg][facility]08-18-2022 15:38-0400Body jbagapdahhk34.78 [degF][facility]08-18-2022 15:38-0400Diastolic blood uhwnhshh693 mm[Hg][facility]08-18-2022 15:38-0400Heart rate92 /minMer[facility]08-18-2022 15:38-1753JxB3% (BldA) [Mass fraction]99 %[facility]08-18-2022 15:38-0400Systolic blood uwcssnxg557 mm[Hg][facility]08-18-2022 15:32-6574KsQ8% (BldA) [Mass fraction]99 %[facility]08-18-2022 15:28-0400Blood Pressure LocationMercy Health St[facility]08-18-2022 15:28-0400 BP/Pulse Patient PositionMercy Health St[facility]08-18-2022 15:28-0400Diastolic blood mniqhxpu291 mm[Hg][facility]08-18-2022 15:28-0400Heart rate92 /minMer[facility]08-18-2022 15:28-0400Mean blood vijzjnok273 mm[Hg][facility]08-18-2022 15:28-0400Systolic blood mm[Hg][facility]08-18-2022 14:56-0400Heart rate93 /[facility]Mer[facility]08-18-2022 14:56-0400Mean blood enkhncvm863 mm[Hg][facility]08-18-2022 14:56-0400Respiratory rate16 /minMer[facility]08-18-2022 14:15-0400 Respiratory rate18 /minMer[facility]08-18-2022 14:00-0400Mean blood mm[Hg][facility] 01-09-2022 13:20-0400Heart rate97 /minNishit [facility] 01-09-2022 12:45-0400Heart weba643 /[facility] 01-09-2022 12:15-0400Body oqgbcyjgsdh62.88 [degF][facility]uan [facility]08-18-2022 12:15-0400Respiratory rate20 /min[facility]07-21-2022 16:48-0400Blood Pressure LocationBreanna Gu [phone]-[facility]ijiCl[facility] 07-21-2022 16:48-0400Body ivkrhywcabp86.06 [degF] Breanna Gu [phone]-CetmmCl[facility] 07-21-2022 16:48-0400Diastolic blood zieavncs98 mm[Hg] Breanna Gu [phone]-DbqzbCl[facility] 07-21-2022 16:48-0400Heart zpyz402 /minBreanna Gu [phone]-OigelCl[facility] 07-21-2022 16:48-2589SdD2% (BldA) [Mass fraction]97 % Breanna Gu [phone]-MvrmyCl[facility] 07-21-2022 16:48-0400Systolic blood glycfvlt623 mm[Hg] Breanna Gu [phone]-QqclzClinton [facility] 07-17-2022 15:56-0400Diastolic blood qvidxzcn59 mm[Hg] Antoine Sosa MD Work Phone: [facility]07-17-2022 15:56-0400Heart pxuv282 /minAntoine Sosa MD Work Phone: [facility]07-17-2022 15:56-0400 Respiratory rate16 /minAntoine Sosa MD Work Phone: [facility]07-17-2022 15:56-9055PjC2% (BldA) [Mass fraction]98 %Antoine Sosa MD Work Phone: [facility]07-17-2022 15:56-0400Systolic blood ounzsxfz351 mm[Hg]Antoine Sosa MD Work Phone: [facility]07-17-2022 15:19-0400Body .5 cmAntoine Sosa MD Work Phone: [facility]07-17-2022 15:19-0400Body mass index (BMI) [Ratio]45.73 kg/q2MahntlAntoine Sosa MD Work Phone: [facility]07-17-2022 15:19-0400Body yaispecciif47.6 [degF]Antoine Sosa MD Work Phone: [facility]07-17-2022 15:19-0400Body cqklof029.4 kgAntoine Sosa MD Work Phone: [facility]07-17-2022 12:44-0400Diastolic blood kgbdavln398 mm[Hg]Santos Moreno [facility]07-17-2022 12:44-0400Heart rate99 /minSantos Moreno [facility]07-17-2022 12:44-0400Mean blood qymkasnh862 mm[Hg]Santos Moreno [facility]07-17-2022 12:44-0400 Respiratory rate17 /minKevin Josh [address]07-17-2022 12:44-9643OyR7% (BldA) [Mass fraction]98 %Santos Josh [address] [place], [place] 2615907-17-2022 12:44-0400 Systolic blood fjivquod576 mm[Hg]Santos Josh [address] [place], [place] 2615907-17-2022 12:20-0400 Diastolic blood uscujxke70 mm[Hg]Santos Josh [address]07-17-2022 12:20-0400Heart rate88 /minKevin Josh [address]07-17-2022 12:20-0400Mean blood qupmgqqd65 mm[Hg]Santos Josh [address]07-17-2022 12:20-0400 Respiratory rate17 /minKevin Josh [address] [place], [place] 2615907-17-2022 12:20-0400 Respiratory rate18 /minKevin Josh [address] [place], [place] 2615907-17-2022 12:20-2094ZdZ9% (BldA) [Mass fraction]99 %Santos Josh [address] [place], [place] [id number] 12:20-0400 Systolic blood tiykbvcq474 mm[Hg]Santos Josh [address] [place], [place] [id number] 11:41-0400 Diastolic blood ysyzmqba31 mm[Hg]Santos Josh [address] [place], [place] [id number] 11:41-0400Heart rate89 /minKevin Josh [address]07-17-2022 11:41-0400Mean blood ooogrvbu80 mm[Hg]Santos Josh [address] [place], [place] [id number] 11:41-0400 Respiratory rate18 /minSantos Moreno [address] [place], [place] [id number] 11:41-5202DxH3% (BldA) [Mass fraction]99 %Santos Moreno [address] [place], [place] [id number] 11:41-0400 Systolic blood vryiypkt025 mm[Hg]Santos Moreno [address] [place], [place] [id number] 10:01-0400Body vwwqmxekutq51.7 [degF]Santos Moreno [address] [place], [place] [id number] 10:01-0400Heart uknf101 /minSantos Moreno [address] [place], [place] [id number] 10:01-0400 Respiratory rate18 /minSantos Moreno [address] [place], [place] [id number] 13:03-0400 [facility] 13:03-0400 [facility] 12:05-0400Hourly RoundingAhmad [facility]06-15-2022 12:05-0400[facility] 11:05-0400[facility] 11:05-0400[facility] 11:00-0400Diastolic blood npqncjby91 mm[Hg][facility]-15-[facility] 11:00-0400Heart rate72 /minAhmad [facility] 11:00-8502GbT3% (BldA) [Mass fraction]98 %[facility]06-15-2022 11:00-0400Systolic blood eyqoplxr212 mm[Hg][facility]06-15-2022 08:04-0400Body hjibyhlhpgj02.06 [degF][facility]06-15-2022 08:04-0400Diastolic blood wgmenupz64 mm[Hg][facility]06-15-2022 08:04-0400Heart rate94 /[facility] 08:04-0400Mean blood qfoiviux072 mm[Hg] [facility]06-15-2022 08:04-2201UbA3% (BldA) [Mass fraction]99 %[facility]06-15-2022 08:04-0400Systolic blood qiyugllx472 mm[Hg][facility]06-15-2022 08:00-0400Blood Pressure LocationA[facility]06-15-2022 08:00-0400BP/Pulse [facility] PositionA[facility]06-14-2022 23:33-2025SGW606 %[facility]06-14-2022 23:33-0400Heart rate60 /[facility]06-14-2022 23:33-0400Respiratory rate12 /[facility]06-14-2022 23:33-6616YtC5% (BldA) [Mass fraction]97 %[facility]06-14-2022 23:00-0400Body giddkjcpjye41.88 [degF][facility]06-14-2022 23:00-0400Diastolic blood vlyhyrqb17 mm[Hg][facility]06-14-2022 23:00-0400Systolic blood unricgsc36 mm[Hg][facility]06-14-2022 20:41-0400Mean blood wgoytlaq836 mm[Hg][facility]06-14-2022 20:23-0400Respiratory rate18 /[facility]06-14-2022 15:53-0400[facility] 15:53-0400BP/Pulse [facility] 15:53-0400Mean blood mm[Hg][facility]06-14-[facility] 14:57-0400Heart ogmb151 /[facility]06-14-2022 11:08-0400[facility] 11:08-0400BP/Pulse [facility] 00:25-0400Heart rate65 /min [facility]06-14-2022 00:25-0400Mean blood oxwboabr11 mm[Hg][facility]06-13-2022 19:15-0400Mean blood zxrimbuc938 mm[Hg][facility]06-13-2022 18:49-0400Heart rgyj037 /[facility]06-13-2022 17:44-0400Mean blood peeryuzs64 mm[Hg][facility]05-18[facility]2022 17:57-0400Diastolic blood owsqsnae57 mm[Hg]Santos Velez [address]05-18-2022 17:57-0400Heart gvmz289 /minSantos Velez [address]05-18-2022 17:57-0400Mean blood tslxzlki204 mm[Hg]Santos Velez [address]05-18-2022 17:57-0400 Respiratory rate16 /minSantos Velez [address] [place], [place] 1981005-18-2022 17:57-1055AbC8% (BldA) [Mass fraction]97 %Santos Velez [address] [place], [place] 1981005-18-2022 17:57-0400 Systolic blood khkddkjo303 mm[Hg]Santos Velez [address] [place], [place] 1981005-18-2022 17:40-0400 Hourly RoundingSantos Velez [address]05-18-2022 17:40-0400 Promise to ReturnSantos Velez [address] [place], [place] [address]15905-18-2022 17:38-0400 Diastolic blood mjdyqgco70 mm[Hg]Santos Velez [address] [place], [place] [address]05-18-2022 17:38-0400Heart wxij921 /minSantos Velez [address] [place], [place] [address]15905-18-2022 17:38-0400Mean blood fxdopvyj282 mm[Hg]Santos Velez [address] [place], [place] [address]15905-18-2022 17:38-0400 Respiratory rate16 /minSantos Velez [address] [place], [place] [address]15905-18-2022 17:38-5346MsH0% (BldA) [Mass fraction]96 %Santos Velez [address] [place], [place] [address]15905-18-2022 17:38-0400 Systolic blood jyrrgowc205 mm[Hg]Santos Agustin [address] [place], [place] [address]05-18-2022 16:10-0400 Diastolic blood sweutuyt15 mm[Hg]Santos Agustin [address]05-18-2022 16:10-0400Heart guxg884 /minSantos Velez [address]05-18-2022 16:10-0400 Hourly RoundingSantos Velez [address] [place], [place] [address]05-18-2022 16:10-0400Mean blood cgtsosgw21 mm[Hg]Santos Agustin [address]05-18-2022 16:10-0400 Promise to ReturnSnatos Velez [address] [place], [place] [address]05-18-2022 16:10-0400 Respiratory rate16 /minSantos Velez [address] [place], [place] [address]05-18-2022 16:10-7614ZyN5% (BldA) [Mass fraction]96 %Santos Agustin [address] [place], [place] [address]15905-18-2022 16:10-0400 Systolic blood ksrdkmwo383 mm[Hg]Santos Velez [address] [place], [place] 2615905-18-2022 15:29-0400Body miqxhjcbipl55.6 [degF]Santos Velez [address] [place], [place] [address]05-18-2022 15:29-0400Heart gvry636 /minSantos Velez [address] [place], [place] 26[address]05-09-2022 13:53-0400Blood Pressure Catrachita Gu 405-3768Ykqvxc-Mjgmc[address] [place] [address] Primary Care 05-09-2022 13:53-0400Body hrukablnebo57.7 [degF]Breanna Gu 981-9483Uptmgy-[facility]fmpgCl[facility] 05-09-2022 13:53-0400Diastolic blood rvjcpahc54 mm[Hg] Breanna Gu 200-2167Plfuhl-IdfntClinton Memorial Hospital [facility] 05-09-2022 13:53-0400Heart rate72 /minBreanna Gu 191-4118Ceswfi-UifsuClinton Memorial Hospital [facility] 05-09-2022 13:53-4532MjK7% (BldA) [Mass fraction]98 % Breanna Gu 528-8977Bicmkz-MawujClinton Memorial Hospital [facility] 05-09-2022 13:53-0400Systolic blood qtcevfdb960 mm[Hg] Breanna Gu 279-5434Bphcbu-ZgpicClinton Memorial Hospital [facility] 04-11-2022 14:55-0400Blood Pressure LocationRyshelia Milena [facility]04-11-2022 14:55-0400 Diastolic blood qsxiqqnp38 mm[Hg]Kirk Motterson [facility]04-11-2022 14:55-0400Heart rate67 /minRyan Christofferson [facility]04-11-2022 14:55-0400 Respiratory rate18 /minRyan Christofferson [facility]04-11-2022 14:55-0933YzI1% (BldA) [Mass fraction]100 %Kirk Motterson [facility]04-11-2022 14:55-0400 Systolic blood mm[Hg]Kirk Abbott [facility]01-21-2022 19:00-0500Body .48 cmPgypsy June Other noBrightRoll Other 01-21-2022 19:00-0500Body mass index (BMI) [Ratio] 42.06 kg/m4RwmyakHerlinda June Other noBrightRoll Other 01-21-2022 19:00-0500Body pnydgdxofam04.1 [degF]Herlinda Callahanmond Other Hyperpia Other 01-21-2022 19:00-0500Body sybcqb608.33 kgHerlinda June Other Hyperpia Other 01-21-2022 19:00-6243ArN7% (BldA) [Mass fraction]97 % Herlinda Callahanmond Other Hyperpia Other 01-12-2021 15:11-0500Body Jyitduhiiei53.9 [degF][facility] HospitalXymuWlujFdqlcn46-50-6635 15:11-0500BP Bzfyaqity39 mm[Hg][facility] 06-05-2020 15:11-0500BP Qkwxeegm208 mm[Hg][facility] HospitalKsxzCyufTzmmyc45-20-0841 15:11-0500Pulse (Heart Rate)79 /[facility] HospitalEgmmRecfQsaqdk69-93-9472 15:11-0500 Pulse Kpuifruo82 %[facility] HospitalWxuaMecmHgwnge08-53-0626 15:11-0500Respiratory Rate15 /[facility] HospitalGzxdKrwxAehsfz32-63-2981 14:24-0500BMI (Body Mass Index)48.29 kg/m2 [facility] HospitalGozuLohzWntwcf66-12-7490 14:24-0500Body pkjzig063.75 kgDavilauren UC Medical CenterLskrWimahz06-58-1872 14:24-8292Gqxhos198.5 cmMiller Children'S Hospitallauren SzfaPcfyRhcbqb94-22-3694 13:59-0400Body Ubdciroaqyw55.3 [degF]Shameka [facility]2019 13:59-0400BP Tctdjspoa44 mm[Hg][facility]2019 13:59-0400BP Zbqhrugt170 mm[Hg][facility]2019 13:59-0400Pulse (Heart Rate)98 /[facility]2019 13:59-0400Pulse Bjejmngu389 %Shameka [facility]2019 13:59-0400Respiratory Rate16 /min [facility]2019 08:00-0400Body weight 110.8[facility]04-16-2019 14:20-0400Height 157.48 cmCincinnati [facility]04-15-2019 19:43-0400BMI (Body Mass Index)42.1 kg/g9UxhfrcbCincinnati [facility]'s [facility] 06-26-2017 21:27-0500BP Fcsnhnnzo111 mm[Hg][facility]The [facility] Work Phone: 1(761) 643-577102-02-2018 21:27-0500BP Udvsuxsg977 mm[Hg]Michi HernandezThe [facility] Work Phone: 1(246) 255-266802-02-2018 21:27-0500Pulse (Heart Rate)91 /minMichi HernandezThe [facility] Work Phone: 1(756) 926-789602-02-2018 21:27-0500Pulse Zijvtutt013 %Michi [facility] Work Phone: 1(364) 915-981302-02-2018 21:27-0500Respiratory Rate17 /minMichi HernandezThe [facility] Work Phone: 1(497) 183-358402-02-2018 18:34-0500BMI (Body Mass Index)36.58 kg/m2 [facility] Work Phone: 1(828) 233-440702-02-2018 18:34-0500Body Xmxnwuemwrt67.4 [degF] [facility] Work Phone: 1(947) 594-605702-02-2018 18:34-4442Msevsp821.5 cmMichi khang [facility] Work Phone: 1(768) 647-758602-02-2018 18:34-3066Rvgahx81.72 kgMichi [facility] Work Phone: Encounters Encounter DateEncounter TypeCare ProviderFacilityStart: 04-04-2025 End: 91-60-4996gvwstfylobYqpjuvjn J Rice DO Work Phone: -[facility] HospitalyStart: 04-04-2025 End: 61-67-3334Afrcmvf encounter procedureMitcorin Lopez DO-[facility] Work Phone: Start: 03-21-2025 End: 65-26-7518JewtycPjqiqenemesio Elizalde CNP Work Phone: [facility] Pain Management Velia Comment on above:DDD (degenerative disc disease), lumbar; Lumbar radiculopathy; Lumbar stenosis with neurogenic claudicationStart: 84-19-6947Ghz-patient / Non-visitAmiee [facility] Work Phone: Start: 03-14-2025 End: 85-43-2711Kdvzevptp encounterSergio Resendez MD Work Phone: NOP[facility] Di EndocrinologyComment on above:Prior AuthorizationStart: 03-08-2025 End: 54-36-3302jadpnbezshGHXHFGPOT LOUIS BONASSOOhio Health AmbulatoryStart: 03-08-2025 End: 26-53-0905Iywpfe outpatient new 20 minutesJustin Shaun Elizalde CNP Work Phone: [facility] Neurological PhysiciansComment on above: Back pain with radiculopathy (Primary Dx); Degeneration of intervertebral disc of lumbar region with discogenic back pain and lower extremity pain; Chronic pain of right kneeStart: 02-24-2025 End: 51-11-1485Jytngvtjqlovo procedureJay Peralta [facility] Pain Management MariComment on above:Power scooter DMEStart: 02-23-2025 End: 65-25-8634Wkwwkm outpatient visit 25 minutesJustin Shaun Lavonne BEATRIZ Work Phone: [facility] Pain Management Edgar Comment on above:Lumbar stenosis with neurogenic claudication (Primary Dx); Left hand pain; Fall, initial encounter; Lumbar radiculopathy; Chronic pain syndrome; Myofascial pain syndrome; Degeneration of intervertebral disc of lumbar region with discogenic back pain and lower extremity painStart: 02-23-2025 End: 77-93-2459typxmwwvfuIRVJWFTM NOT IN [facility] PhysiciansStart: 57-96-8587czpdxypgeqIuzkat TannaFacility:EU BellevueStart: 02-20-2025 End: 61-13-8183pvywwhridkKkmdatql J Rice DO Work Phone: [facility] Work Phone: Start: 02-20-2025 End: 91-95-5723Pckbkyd encounter procedureAndrés Lopez DO-[facility] Work Phone: Start: 02-03-2025 End: 69-98-0605xwcnktvwcySNHY CAMILA DIALSFacility:FTMCStart: 02-02-2025 End: 55-27-3800Gbancarohan Resendez MD Work Phone: noms Di EndocrinologyStart: 02-02-2025 End: 80-62-8852Rzipurrohan Resendez MD Work Phone: [facility] Di EndocrinologyStart: 02-02-2025 End: 95-29-1413Uiqlgg outpatient new 45 minutesSergio Resendez MD Work Phone: NOPA Di EndocrinologyComment on above:Type 2 diabetes mellitus with hyperglycemia, with long-term current use of insulin (HCC) (Primary Dx); Encounter for dietary consultation; Insulin long-term use (HCC); Class 3 severe obesity due to excess calories with serious comorbidity and body mass index (BMI) of45.0 to 49.9 in adult ([facility]-HCC); Hyperlipemia, mixed ; Vitamin D deficiency; Primary hypertension ; Encounter for fitting or adjustment of insulin pumpStart: 02-02-2025 End: 12-53-5393ppuxpqnmzvVENDI F SABBAGHNot AvailableStart: 01-09-2025 End: 17-54-4994mepyjzkkmdLTQF ALAHMADFacility:FTMCStart: 12-28-2024 End: 93-26-6795zhweyjlaqbXojhovm D KatkoPremier Health [facility] Work Phone: Start: 12-28-2024 End: 97-48-9021Bcvwhvdf ReferredBen Long DO-[facility] Start: 12-19-2024 End: 92-43-3525AcayfbAxkvosgurWillie Velez DO Work Phone: [facility] Pain Management Velia Comment on above:Chronic pain syndrome; DDD (degenerative disc disease), lumbar; Lumbar radiculopathyStart: 12-06-2024 End: 41-77-5899Weaqhllts encounterCathy [facility] Pharm[facility] Medication ManagementStart: 12-02-2024 End: 29-90-3067Zbffvlbhai and management of inpatientJudy Mio Vargas MD Work Phone: [facility] - GEN 8 AcuteComment on above:HHS (hypothenar hammer syndrome) (Primary Dx); Hyperosmolar hyperglycemic state (HHS) ([facility]-HCC)Start: 07-73-7509mujiqfchqiBIZ D [facility] Ambulatory PPGStart: 11-21-2024 End: 57-98-9390SisxbkAhpqzuhptWillie Velez DO Work Phone: [facility] Pain Management Velia Comment on above:DDD (degenerative disc disease), lumbar; Lumbar radiculopathy; Chronic pain syndromeStart: 11-04-2024 End: 74-16-9722Sjvepqc encounter Andra Romeo PA-C Work Phone: [facility] Clarisse Comment on above:No-show for appointment (Primary Dx)Start: 11-79-7018iyakxllqyfkarlo ROMEOFacility:[facility] TEMPLEtart: 10-11-2024 End: 22-94-7569Qxfzha OnlyJim Velez DO Work Phone: [facility] Pain Management Velia Start: 10-06-2024 End: 76-59-9511JzlkcpAygtongzhWillie Velez DO Work Phone: [facility] Pain Management Velia Comment on above:Chronic pain syndromeStart: 25-90-1899Lxoedqhzsi and management of inpatientMUNIER NAZZALUniBerger Hospitaltart: 10-02-2024 Evaluation and management of inpatientMUHAMMAD ASHLEYMercer County Community Hospitaltart: 04-13-4094Bjqlvyfgmc and management of inpatientSOAK CREEKR St. [facility] Hospitaltart: 68-74-1880Ojydybnzlg and management of inpatientSAMAR St. [facility] Hospitaltart: 10-01-2024 End: 90-18-5519Uiyoyvctvg and management of inpatientDARYL T [facility] Hospitaltart: 09-29-2024 End: 48-31-3287Exprqwbnvxbib procedureJay SANTANASamaritan Hospital [facility] Pain Management VeliaComment on above:ZynexStart: 84-71-6284ldkurbqhvjMLGUNZWZMMichael VELEZMercy Health [facility] Hospital PhysiciansStart: 09-23-2024 End: 41-93-3959FxwtdjMkkanffrfWillie Velez DO Work Phone: [facility] Pain Management Velia Comment on above:Chronic pain syndromeDegeneration of intervertebral disc of lumbar region with discogenic back pain and lower extremity pain (Primary Dx); Lumbar radiculopathy; Chronic pain syndromeLevetiracetam LevelStart: 09-23-2024 End: 96-76-9863Mblfax outpatient visit 25 minutesJim Velez DO Work Phone: [facility] Pain Management Velia Comment on above:Myofascial pain syndrome (Primary Dx); DDD (degenerative disc disease), lumbar; Lumbar radiculopathy; Chronic pain syndromeStart: 09-23-2024 End: 38-23-9801mkydgfusguYIPHG [facility] Hospitaltart: 09-22-2024 End: 95-34-6698Gujawerac department patient visitMATTCommunity Hospital Northtart: 09-22-2024 End: 22-92-0001Lfzzfchtyzyed procedureMenatalie Beard PA-C Work Phone: [facility] Primary Care PhysiciansComment on above:Chronic pain syndromeStart: 84-19-5351cqlzhpainsQJDMTFDGC WONG [facility] PhysiciansStart: 09-18-2024 End: 64-35-2602Snchtmbrs department patient visitMATTCommunity Hospital Northtart: 08-29-2024 End: 15-73-8210Kalyzuuvs department patient visitNo [facility] Urgent CareStart: 08-24-2024 End: 94-78-5455Ihkqparbbsxle procedureJustteresita Elizalde CNP Work Phone: [facility] Pain Management Velia Start: 08-18-2024 End: 96-06-6495Lczdba OnlyJ. Timothy Robles MD Work Phone: [facility] Physicians OrthopedicsComment on above: Pain in both knees, unspecified chronicity (Primary Dx)DDD (degenerative disc disease), lumbar; Lumbar radiculopathy; Chronic pain syndromeStart: 08-08-2024 End: 25-63-4864HrzjzaNanda Schuler PA-C Work Phone: [facility] Physicians Spine SurgeryComment on above: Lumbar pain (Primary Dx)Start: 08-04-2024 End: 30-14-1694Efnehgccdlgsk [facility] Primary Care PhysiciansComment on above:Pulse oxStart: 08-02-2024 End: 48-57-7898agtwmodcoxTOIBC ANN MCCMANUELASelect Specialty Hospital - Evansvilletart: 08-02-2024 End: 24-57-6738Pfutkh outpatient visit 25 minutesStephany Pelayo PA-C Work Phone: [facility] Primary Care PhysiciansComment on above:Bipolar [...] Hypothyroidism, unspecified type; History of stroke; Seizures ([facility]); Hypercholesterolemia; Urinary incontinence, unspecified type; Gastroesophageal reflux disease, unspecified whether esophagitis present; Family history of pulmonary fibrosis; Candidiasis of breast; Insomnia, unspecified type; Vitamin B12 deficiency; Vitamin D deficiency; Encounter for screening mammogram for malignant neoplasm of breast; Encounter for health-related screeningStart: 08-02-2024 End: 62-06-4072pdlfbsidvjBTTIJDickenson Community Hospital Physicians Start: 07-21-2024 End: 07-98-7427Thnossflzknuz [facility] Primary Care PhysiciansComment on above:shower chairStart: 07-15-2024 End: 81-24-7371Itqgxa outpatient visit 25 minutesStephany Pelayo PA-C Work Phone: [facility] Primary Care PhysiciansComment on above:Seizures (HCC) (Primary Dx); Chronic nonintractable headache, unspecified headache type; Primary hypertension; Sick sinus syndrome (HCC); Type 2 diabetes mellitus with diabetic polyneuropathy, with long-term current use of insulin ([facility]); Gastroesophageal reflux disease, unspecified whether esophagitis presentStart: 07-15-2024 End: 29-91-5067fdlwjrjpzfFFYJK ANN MCCMANUELAMercy Health [facility] Hospital Physicians Start: 07-12-2024 End: 78-32-7779XlebvrNwshtrDiego Elizalde CLINICAL DOCUMENTATION SPECIALIST Work Phone: [facility] Pain Management Velia Comment on above:DDD (degenerative disc disease), lumbar; Lumbar radiculopathy; Chronic pain syndromeStart: 07-05-2024 End: 48-99-7997Zvrmeu flowsheetMarc D Dolce DPM FACFAS Work Phone: [facility] PODStart: 07-05-2024 End: 28-82-4747Mncbfw flowsheetMarc D Dolce DPM FACFAS Work Phone: [facility] PODStart: 07-05-2024 End: 08-01-2306Jofhpl outpatient visit 15 minutesMarc D Dolce DPM FACFAS Work Phone: noMS NMA PODComment on above:Type II diabetes mellitus with neurological manifestations (CMS/HCC) (Primary Dx); Chronic foot ulcer with fat layer exposed, left (CMS/HCC); Cellulitis of left footStart: 07-05-2024 End: 05-73-7521izadeuyggbKVMF D DOLCENot AvailableStart: 06-10-2024 End: 43-33-7573SpmfvrOowxwjDiego Elizalde CLINICAL DOCUMENTATION SPECIALIST Work Phone: [facility] Pain Management Velia Comment on above:Chronic pain syndrome; DDD (degenerative disc disease), lumbar; Lumbar radiculopathyStart: 06-06-2024 End: 73-41-8646Ewamkwsgfsxdi procedureJessica Jonathan [facility] Primary Care PhysiciansComment on above:incontinence suppliesStart: 05-31-2024 End: 06-49-3837Kayenhfgzzvxq procedureMegan [place] DOMKing's Daughters Medical Center [place] [facility] Primary Care PhysiciansStart: 05-27-2024 End: 39-34-7648AuwtyoAstpmLeny Pelayo PA-C Work Phone: [facility] Primary Care PhysiciansComment on above:Bipolar 1 disorder (HCC); Insomnia, unspecified typeStart: 05-23-2024 End: 10-67-5114Vypcqaokp department patient visitMATTCommunity Hospital Northtart: 05-13-2024 End: 30-39-8166Xyvldo outpatient visit 25 minutesJustteresita Elizalde CNP Work Phone: [facility] Pain Management Velia Comment on above:Lumbar radiculopathy (Primary Dx); Chronic pain syndrome; DDD (degenerative disc disease), lumbar; Encounter for monitoring opioid maintenance therapy; Other chronic pain; Myofascial pain syndromeStart: 05-13-2024 End: 12-31-0243erytgpajcaWLXZCAllegra PELAYOMercy Health Urbana Hospital Physicians Start: 04-28-2024 End: 09-13-3857CwdpbaVjnalyDiego Elizalde CNP Work Phone: [facility] Pain Management Velia Comment on above:Chronic pain syndromeStart: 04-26-2024 End: 76-08-0497ccuhhuxespLHG [facility] Hospitaltart: 04-26-2024 End: 97-74-0878Tgatwwelti and management of inpatientAnudeep Miah STEVENS Work Phone: [facility] Unit 4 SouthStart: 04-12-2024 End: 16-53-0910AinsmrRezyeytruEduardo Velez DO Work Phone: [facility] Pain Management Velia Comment on above:DDD (degenerative disc disease), lumbar; Lumbar radiculopathyChronic pain syndromeStart: 03-30-2024 End: 69-84-9278Spoygzqyjzyoe procedureSlinda Adams LPKing's Daughters Medical Center [place] Physicians EndocrinologyComment on above:[facility] HospitalStart: 03-25-2024 End: 57-51-4806TyebaqNanda Pelayo PA-C Work Phone: [facility] Primary Care PhysiciansStart: 03-24-2024 End: 97-80-6281Dnpdjfyzbm and management of inpatientDatamika Aaron MD Work Phone: [facility] Surgical 2 NormanStart: 03-24-2024 End: 42-31-8326QbrbixNanda RUBALCAVA-Isabell Work Phone: [facility] Primary Care PhysiciansStart: 03-22-2024 End: 90-63-6701Cdrpet outpatient visit 25 minutesStephany Pelayo PA-C Work Phone: [facility] Primary Care PhysiciansComment on above:Primary hypertension (Primary Dx); Diarrhea, unspecified type; Abdominal cramping; Abdominal wound dehiscence, initial encounter; Bipolar 1 disorder (HCC); Seizures (HCC); Chronic pain of both knees; Urinary incontinence, unspecified type; Candidiasis; Abnormal pigmentation of skinStart: 03-22-2024 End: 50-86-7058QmpjonVwfpcdjzmEduardo Velez DO Work Phone: [facility] Pain Management Velia Comment on above:Chronic pain syndromeStart: 03-08-2024 End: 84-52-2845LgzjzhWqwdpcDiego Elizalde CNP Work Phone: [facility] Pain Management Velia Comment on above:DDD (degenerative disc disease), lumbar; Lumbar radiculopathyStart: 02-11-2024 End: 97-34-1487frbqqftjusQCIBLSkagit Valley Hospitaltart: 02-11-2024 End: 30-41-8019Oofvmn outpatient visit 25 minutesStephany Pelayo PA-C Work Phone: [facility] Primary Care PhysiciansComment on above:Diabetic [...] without complication; Need for vaccinationStart: 02-08-2024 End: 33-77-1620NfwtlnDnhbsuyafuMeadville Medical Center Physicians PsychComment on above:Bipolar 1 disorder (HCC); Insomnia, unspecified typeStart: 02-04-2024 End: 34-24-4428Ibprmh BladimirJim Pearsonay Agustin DO Work Phone: [facility] Velia Comment on above:DDD (degenerative disc disease), lumbar; Lumbar radiculopathyStart: 02-03-2024 End: 73-43-1477ViqggpOlglaronq Wong Lewis DO Work Phone: [facility] Management [place]ia Comment on above:DDD (degenerative disc disease), lumbar; Lumbar radiculopathyStart: 02-02-2024 End: 57-05-0764Nnmkpt outpatient visit 25 minutesJim Pearsonjesus Velez DO Work Phone: [facility] Velia Comment on above:Chronic pain syndrome (Primary Dx); DDD (degenerative disc disease), lumbar; Lumbar radiculopathy; Other chronic pain; Myofascial pain syndrome; Debilitated patientStart: 01-27-2024 End: 83-65-2137sxgbueclroKyevivouCape Fear/Harnett Health Physicians Primary Care Comment on above:Chronic pain syndromeStart: 01-27-2024 End: 52-47-8100Mdlgqxjhcllq care manage srvc 14 day dischargeRafaela Medrano CLINICAL DOCUMENTATION SPECIALIST Work Phone: [facility] Primary Care PhysiciansComment on above:Diabetic ulcer of right foot associated with type 2 diabetes mellitus, unspecified part of foot, unspecified ulcer stage (HCC) (Primary Dx); Primary hypertension; SOLO (acute kidney injury) ([facility]); Hypothyroidism, unspecified type; Hyperlipidemia, unspecified hyperlipidemia typeStart: 01-12-2024 End: 40-14-5795Zdgflhcfor and management of inpatientAnudekarthik Dooley MD Work Phone: [facility] Medical Unit 2 SouthStart: 01-12-2024 End: 11-14-6841Nlyeih outpatient visit 25 minutesStephany Pelayo PA-C Work Phone: [facility] Primary Care PhysiciansComment on above:Diabetic ulcer of left great toe (HCC) (Primary Dx)Start: 01-11-2024 End: 82-89-4329CcrczjXesocnfrs Holloway Lewis Work Phone: [facility] Management Velia Comment on above:DDD (degenerative disc disease), lumbar; Lumbar radiculopathy; Muscle spasms of both lower extremitiesStart: 01-09-2024 End: 51-72-0867Haxnmjmmx department patient visitLARiverview Hospitaltart: 12-21-2023 End: 39-36-9090DgatyeZiaiohDiego Elizalde CNP Work Phone: [facility] Velia Comment on above:Chronic pain syndromeStart: 12-14-2023 End: 14-18-9682Rfkyrolwbthyf procedureRafaela Castillo [facility] Primary CareComment on above:nebulizer suppliesStart: 12-08-2023 End: 47-10-7178Idyldq outpatient new 45 minutesStephany Pelayo PA-C Work Phone: [facility] Velia Comment on above:Chronic pain syndrome (Primary Dx); Muscle spasms of both lower extremities; DDD (degenerative disc disease), lumbar; Lumbar radiculopathy; Other chronic pain; Myofascial pain syndrome; Debilitated patientStart: 12-08-2023 End: 45-36-5723TtmsceXvejt L Huan [facility] Endocrinology Start: 12-07-2023 End: 39-39-6122Rjorkkaxv department patient visitLARiverview Hospitaltart: 12-07-2023 End: 78-68-8270DeaxocMnqyb L Huan [facility] Endocrinology Comment on above:Type 2 diabetes mellitus with diabetic polyneuropathy, with long-term current use of insulin (HCC)Start: 12-03-2023 End: 67-78-5338AzhpknTqfmlhpTerry Sanchez MD Work Phone: [facility] EndocrinologyComment on above: Type 2 diabetes mellitus with diabetic polyneuropathy, with long-term current use of insulin (HCC)Start: 12-02-2023 End: 62-66-3323OzhupvQaklxud Ann [facility] Endocrinology Comment on above:Type 2 diabetes mellitus with diabetic polyneuropathy, with long-term current use of insulin (HCC) (Primary Dx)Start: 12-02-2023 End: 93-42-8421Xljxeo outpatient new 60 minutesStephany Pelayo PA-C Work Phone: [facility] EndocrinologyComment on above: Type 2 diabetes mellitus with diabetic polyneuropathy, with long-term current use of insulin (HCC) (Primary Dx); Proliferative diabetic retinopathy associated with type 2 diabetes mellitus, unspecified laterality, unspecified proliferative retinopathy type (HCC); Dyslipidemia; Essential hypertension; Obesity, unspecified classification, unspecified obesity type, unspecified whether serious comorbidity presentStart: 12-01-2023 End: 95-50-8798Pkyukt outpatient visit 25 minutesStephany Pelayo PA-C Work Phone: [facility] Primary CareComment on above: Primary hypertension (Primary Dx); Upper respiratory tract infection, unspecified type; Chronic obstructive pulmonary disease, unspecified COPD type (HCC); Family history of pulmonary fibrosis; Retinal hemorrhage of left eyeStart: 50-21-3834QdejnvDlcplJustice Pelayo PA-C Work Phone: [facility] Primary CareComment on above: Muscle spasms of both lower extremities; Type 2 diabetes mellitus with diabetic polyneuropathy, with long-term current use of insulin (HCC)Start: 11-09-2023 End: 13-06-9829Aatpwn outpatient new 45 minutesAnders London MD Work Phone: [facility] Eye [facility] Ear InstituteComment on above:Vision loss of left eye (Primary Dx); Ocular hypertension of left eye; Proliferative diabetic retinopathy of left eye associated with type 2 diabetes mellitus, unspecified proliferative retinopathy type; Nonproliferative diabetic retinopathy of right eye; Pseudophakia; Dry eye syndrome of bilateral lacrimal glandsStart: 28-34-6531VbhyslPobxzimnAries Garcia MD Work Phone: [facility] PsychStart: 10-29-2023 End: 23-36-4088Dqdlrv Homar Gloria [facility] Primary Care Start: 29-21-3571Tlqrnl Live Pelayo PA-C Work Phone: [facility] Primary CareComment on above: Subacute cough (Primary Dx); Family history of pulmonary fibrosisStart: 89-23-6866Rkjeac Ladarius Castillo DPM Work Phone: [facility]Start: 10-13-2023 End: 36-77-3731Bhdoik outpatient visit 25 Heather Pelayo PA-C Work Phone: [facility] Primary CareComment on above: Primary hypertension (Primary Dx); Subacute cough; RUQ abdominal pain; Type 2 diabetes mellitus with diabetic polyneuropathy, with long-term current use of insulin (HCC); Family history of pulmonary fibrosisStart: 10-07-2023 End: 80-18-6943Fcushz outpatient visit 25 Dane Garcia MD Work Phone: [facility] PsychComment on above:Bipolar 1 disorder (HCC) (Primary Dx); Post traumatic stress disorder (PTSD); Generalized anxiety disorder; Insomnia, unspecified typeStart: 46-59-8250Tpuaajfsmbwuf procedureMagnolia Chavira LPKing[facility] PsychStart: 32-91-9451LwnruaIwhvpJustice Pelayo PA-C Work Phone: [facility] Primary CareComment on above: Muscle spasms of both lower extremitiesStart: 46-83-4693Oxumrw Ladarius Castillo DPM Work Phone: [facility]HealthComment on above:Right foot ulcer, with fat layer exposed (HCC) (Primary Dx)Start: 09-16-2023 End: 97-94-7199Xexfne outpatient visit 40 minutesSuakkayyya Brittaney Campos MD Work Phone: [facility] NeurologyComment on above: Hearing loss of left ear, unspecified hearing loss type (Primary Dx); Lacunar stroke (HCC); Seizure (HCC)Start: 42-03-4640SvnkxnEoubuehnvo Musgrave [facility] PsychStart: 71-07-5752Wkblyfvdojvyz procedureJeayana Castillo [facility] Primary CareComment on above:DMEStart: 04-70-3812MfeyfrNeccrccjt [facility] Physicians Primary CareComment on above:Muscle spasms of both lower extremitiesStart: 09-03-2023 End: 62-06-2880Yrtselxt preventive med est patient 40-64yrsLaura Leann Pelayo PA-C Work Phone: [facility] Primary CareComment on above: Chronic pain syndrome (Primary Dx); Muscle spasms of both lower extremities; Urinary incontinence, unspecified type; Chronic nonintractable headache, unspecified headache type; Chronic obstructive pulmonary disease, unspecified COPD type (HCC); Type 2 diabetes mellitus with diabetic polyneuropathy, with long-term current use of insulin (HCC); Diabetic peripheral neuropathy ([facility]); Diabetic ulcer of right foot associated with type 2 diabetes mellitus, unspecified part of foot, unspecified ulcer stage ([facility]); Hypothyroidism, unspecified type; Primary hypertension; Hypercholesterolemia; S/P placement of cardiac pacemaker; Seizures ([facility]); Bipolar 1 disorder ([facility]); Gastroesophageal reflux disease, unspecified whether esophagitis present; Vitamin D deficiency; Vitamin B12 deficiency; Cigarette nicotine dependence without complicationStart: 08-26-2023 End: 14-47-7543Qceevvswn department patient visitFloyd Mercado MD Work Phone: [facility] Emergency DepartmentStart: 65-50-3171UnmujlUpfwgvtMatthew Medrano CNP Work Phone: [facility] Primary CareComment on above: Muscle spasms of both lower extremitiesStart: 29-82-3778JyfppsEgfujttMatthew Medrano CNP Work Phone: [facility] Primary CareComment on above: Type 2 diabetes mellitus with diabetic polyneuropathy, with long-term current use of insulin (HCC) (Primary Dx); Muscle spasms of both lower extremitiesStart: 08-03-2023 End: 59-87-4617Mplisl outpatient new 60 minutesLabryan Pelayo PA-C Work Phone: [facility] PsychComment on above:Post traumatic stress disorder (PTSD) (Primary Dx); Bipolar 1 disorder (HCC); Insomnia, unspecified type; Generalized anxiety disorderStart: 06-22-2023 End: 51-48-9210Okpbvi outpatient visit 25 minutesHarris Bhat MD Work Phone: [facility] Primary CareComment on above: Bipolar 1 disorder (HCC) (Primary Dx); Type 2 diabetes mellitus with diabetic polyneuropathy, with long-term current use of insulin (HCC); Seizures (HCC); Incontinence in femaleStart: 09-28-6185DvpzrdQbzdtbkjy GayDecatur County [facility] Physicians Primary CareComment on above:Bipolar 1 disorder (HCC) (Primary Dx) Start: 43-55-3134uzwhqbbovdJsi Beverly [facility] Primary Care Comment on above:High Risk Outreach for High RiskStart: 05-15-2023 End: 92-37-4961Wznwbud [facility] Home HealthComment on above:SN HH NON ADMIT VISITStart: 05-15-2023 End: 83-72-6126Yutzfw outpatient visit 25 minutesStephany Pelayo PA-C Work Phone: [facility] Primary CareComment on above: Left-sided weakness (Primary Dx); Visual loss, left eye; Acute effusion of left ear; Diabetic ulcer of right foot associated with type 2 diabetes mellitus, unspecified part of foot, unspecified ulcer stage (HCC); Gastroesophageal reflux disease, unspecified whether esophagitis present; Weight gainStart: 77-34-9892hkfzuwpfiqEtllsd [place] [facility] Physicians Primary CareComment on above:High Risk Outreach for High RiskStart: 05-15-2023 Documentation procedureJeayana Jonathan [facility] Primary Care Comment on above:hosp bedStart: 56-07-0171ahwkivoypvLxuvkurw [facility] IntermediateStart: 30-15-6346cefdvwhzjoIBLQGAllegra PELAYO HomeHealthStart: 05-06-2023 End: 44-44-5532Abobgr outpatient new 45 minutesLaura Leann Pelayo PA-C Work Phone: [facility] Primary CareComment on above: Non-recurrent acute suppurative otitis media of left ear without spontaneous rupture of tympanic membrane (Primary Dx); Type 2 diabetes mellitus with diabetic polyneuropathy, with long-term current use of insulin (HCC); Diabetic ulcer of right foot associated with type 2 diabetes mellitus, unspecified part of foot, unspecified ulcer stage ([facility]); Diabetic peripheral neuropathy ([facility]); Hypertensive urgency; Chronic obstructive pulmonary disease, unspecified COPD type ([facility]); Chronic chest pain; S/P placement of cardiac pacemaker; Hypothyroidism, unspecified type; Seizures ([facility]); Bipolar 1 disorder ([facility]); Insomnia, unspecified type; Gastroesophageal reflux disease, unspecified whether esophagitis present; Generalized weakness; Muscle spasms of both lower extremities; Vitamin B12 deficiency; Vitamin D deficiency; Incontinence of feces, unspecified fecal incontinence type; Cigarette nicotine dependence without complication; Screening for cervical cancer; Encounter for screening mammogram for malignant neoplasm of breast; Encounter for vaccinationStart: 04-29-2023 End: 02-09-0952Oxzn Coral Colin OTNvioOhio Valley Surgical Hospital Home HealthComment on above:OT NON-OASIS/DISCIPLINE DISCHARGEStart: 04-29-2023 End: 30-63-5747Drlf Daylin Prather PTOhioHealth Home HealthComment on above: PT NON-OASIS/DISCIPLINE DISCHARGEStart: 02-70-2748Maxmbud Pratt PTA Ohio[facility] Home HealthComment on above:THERAPY TECH MISSED VISITStart: 04-24-2023 End: 15-23-3471Ycff Karlo Jameson OTANvioOhio Valley Surgical Hospital Home HealthComment on above:RETANA MISSED VISITPTA MISSED VISITStart: 04-23-2023 End: 58-05-0224Jbli Karlo Jameson OTAOhioHealth Home HealthComment on above:RETANA MISSED VISITStart: 04-22-2023 End: 81-35-0983Hqus Harvinder Wilcox RNOhioHealth Home HealthComment on above:SN HH OASIS DISCHARGEStart: 04-21-2023 End: 25-70-0529Npic visitNikko Pratt PTAOhioHealth Home HealthComment on above: THERAPY TECH MISSED VISITCASE COMMUNICATIONCARE CONFERENCEStart: 04-20-2023 End: 55-71-3426Isan visitAma Wilcox RNOhioHealth Home HealthComment on above:SN MISSED VISITStart: 68-04-2013Gktk visitSharla Paulino PSAOhioHealth Home HealthComment on above: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 MISSED VISITStart: 04-15-2023 End: 35-72-0408Lqqi visitTahollie Arias PTAOhioHealth Home HealthComment on above: CASE COMMUNICATIONSN HH ROUTINE VISITCOTA ROUTINE VISITStart: 04-14-2023 End: 81-13-4599Hehe visitDajulius Boston PSAOhioHealth Home HealthComment on above: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 HH ROUTINEStart: 04-14-2023 End: 51-25-1094Hpfm visitNikko Pratt PTAOhioHealth Home HealthComment on above: THERAPY TECH ROUTINE VISITOT INITIAL EVALUATIONStart: 40-09-6142Uadt Coral Colin OTOhioHealth Home HealthComment on above:CASE COMMUNICATIONStart: 04-09-2023 End: 39-98-9909Qltm visitDajulius Boston PSAOhioHealth Home HealthComment on above: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 HH ROUTINEStart: 04-08-2023 End: 54-99-4986Ardy Ranulfo Carrera LPNOhioHealth Home HealthComment on above:ATTENDING PATHOLOGIST HH ROUTINEStart: 04-08-2023 End: 44-01-7276Jkbr visitLsia Padron PTOhioHealth Home HealthComment on above: PT INITIAL EVALUATIONStart: 85-41-9717Pkbhbud Padron PTOhioHealth Home HealthComment on above:CASE COMMUNICATIONHHA MISSED VISITStart: 04-01-2023 End: 42-42-3778Essh visitBonjose antonio Wick Cox MonettioOhio Valley Surgical Hospital Home HealthComment on above:SN HH OASIS START OF CAREStart: 83-93-3309bykegohgoyXHKAXT FREEMAN NEOSHO HOSPITALRiAvita Health System [facility] HospitalStart: 03-30-2023 End: 64-04-2714vvljfphcpvKQRUGK SHUHHomeHealthStart: 03-29-2023 End: 92-63-3160Xpzyrqwms department patient visitDatamika Aaron MD Work Phone: [facility] Evansvilletart: 02-17-2023 End: 06-22-4757Jnplrexhys and management of inpatientKaren Sairakodak Pickering DO Work Phone: [facility] Surgical 2 NorthStart: 02-09-2023 End: 38-49-4728Flkfsx outpatient new 20 minutesBrent Roman Christianson DO Work Phone: [facility] OrthopedicsComment on above: Strain of right hamstring, initial encounter (Primary Dx); Strain of right knee, initial encounter; Other specified diabetes mellitus with other specified complication, unspecified whether intermediate card tender insulin use (HCC)Start: 56-54-0515Vxwysv OnlyBreankita Christianson DO Work Phone: [facility] OrthopedicsComment on above: Right knee pain, unspecified chronicity (Primary Dx)Start: 95-56-8739nmwzbaiwga No DoctorFacility:AMCLStart: 53-19-5208Aawrsprdrw and management of inpatient RAFAELA KWADWO .Facility:Z1Ssqdb: 10-11-2022 End: 69-27-7738cvsvfbvxohUB DOCTOR MISCFacility:U6Hgvoz: 40-52-4397Nzxkqicgc department patient visitUNKNOWN PROVIDERFacility:METROHealthStart: 10-06-2022 End: 69-04-6388Gfgfvdxet department patient visitUNKNOWN PROVIDER Facility:[facility]ITALHealthStart: 10-06-2022 End: 88-65-0191Hmhjlphtb department patient visitJocelyn Bowen MD Work Phone: [facility] MedicineComment on above:Chart (Transfer from [facility] for MRI)Start: 10-06-2022 End: 35-02-9295Aldznmaot department patient visitPreston Lugo [facility] Start: 09-18-2022 End: 50-32-9722qxtotbuxbyVMATEV RODRIGUEZ .Facility:S0Wsocb: 09-12-2022 End: 58-98-4114Segwagyqhe and management of inpatientPepe Echols [facility] Start: 09-12-2022 End: 38-89-2087Pcjgisgtj to same day surgery centerNP-C Laurent Franco Work Phone: [facility] CenterStart: 09-12-2022 End: 54-34-9165rgokowiuiqEZ-C Laurent Franco Work Phone: [facility] Work Phone: Start: 09-09-2022 End: 34-43-9970rtozxbhmnpOQYZM LEWIS .Facility:L8Wymwk: 09-07-2022 End: 75-52-2722ncwkdedwgdMT DOCTOR MISCFacility:Z3Psapi: 09-02-2022 End: 87-33-0160eqrvgqedlwGxnpemd Langenberg Other Norman Spacedeck Other Start: 92-09-4267Igoijfloh encounterShameka Romero [facility] Vascular SurgeryStart: 08-29-2022 End: 47-61-7028Bzalzrx encounter procedureLAURENT FRANCO [facility] Start: 08-20-2022 End: 39-97-2995Uagepgirfg and management of inpatientNP-C Kip Soviak Work Phone: [facility] Work Phone: Start: 08-20-2022 End: 73-16-0726Wlxgawchgj and management of inpatientNP-C Kip Sorandyak Work Phone: [facility] Work Phone: Start: 20-91-3523lhgpcyigrys encounterNP-C Kip W Sorandyak Work Phone: [facility] Work Phone: Start: 08-19-2022 End: 04-08-6636Bzdiudmcy department patient visitSantos Velez [facility] Start: 46-10-6033zcpeyzuiacJQIM TAMLYN .Facility:H1 Start: 08-02-2022 End: 94-67-3433Icpuzjfaly and management of inpatientDR POLO MILTON Facility:E3Btndq: 07-30-2022 End: 65-14-0088yamkmwifiuBL SACHI ROQUE .Facility:X4Tbzuj: 07-10-2022 End: 39-49-4958ivwdusqpblXCRLXX RODRIGUEZ .Facility:W2Fpxpv: 06-21-2022 End: 32-81-5253cxhunczcqdLE ROBERT LUX .Facility:A4Agqzf: 06-11-2022 End: 24-70-6398dvynzuimfzVNI BROWNEFacility:O9Vsxor: 06-02-2022 End: 45-36-8558Rhnrohizl department patient visitAstrit Nicole Jose MiguelOhiohealth Doctors Hospital Start: 05-15-2022 End: 63-12-6668Kmyigchzh department patient visitSantos Velez [facility] Start: 04-20-2022 End: 47-40-5314ojpjokckftZXU BROWNEFacility:O2Cjqub: 04-06-2022 End: 84-70-5620Olmnlmnbec and management of inpatientAshutosh MENARD [facility] Start: 03-31-2022 End: 94-66-4499sbooobninhANWJUW RODRIGUEZ .Facility:H5Wutge: 03-04-2022 End: 80-20-0660hnkpthuckrHA DOCTOR MISCFacility:T2Vardi: 02-27-2022 End: 01-40-9913Eguybsnij department patient visitGui Schafer [facility] Start: 02-21-2022 End: 10-82-5414Pjcahdgwx department patient visitIrajtiffanie MaldonadoMaris Velez [facility] Start: 02-17-2022 End: 46-54-0271bqfucwbbmcBN MICHI MENDEZ .Facility:W3Wxofp: 02-06-2022 End: 15-99-2089yhpfknfljfLN POLO KLINEERFacility:I8Enpzs: 01-24-2022 End: 44-90-1520Fqzqmmvur department patient visitPreston Lugo [facility] Start: 01-09-2022 End: 52-95-8145IerzzzaamnuJxmdyw P LISAOhiohealth Doctors Hospital Start: 01-01-2022 End: 12-40-7930dwgzvwizwiEHZDV PARKERFacility:M5Gvgmc: 01-01-2022 End: 60-67-6797Gcnrxwb encounter procedureBreanna Gu [phone]-XmqfiClinton Memorial Hospital [facility] Start: 12-12-2021 End: 78-53-8636Sljplrb encounter Dc Gu 111-3855Dmuerb-DotkwClinton Memorial Hospital [facility] Start: 12-08-2021 End: 03-13-8077Kivgjgypw department patient visitCEM MARIOZanesville City Hospitaltart: 12-08-2021 End: 59-46-2540Xqthgvhhd department patient visitAntoine Sosa MD Work Phone: [facility] EDComment on above:Other insomnia (Primary Dx)Start: 12-08-2021 End: 56-32-2710Cscxjibki department patient visitSantos Moreno [facility] Start: 12-04-2021 End: 11-25-1132vxkggqgimkMM DOCTOR MISCFacility:D0Ihuhk: 12-02-2021 End: 58-41-1420Bmqdymd encounter procedureBreanna Gu 256-4386Twxczs-SgpblClinton Memorial Hospital [facility] Start: 11-28-2021 End: 35-40-9113qtzovcnkbjTO DOCTOR MISCFacility:G4Xsndz: 11-27-2021 End: 73-43-9523Hpcdiwy encounter procedureBreanna Gu [phone]-DltcjClinton Memorial Hospital [facility] Start: 11-04-2021 End: 65-11-5625Azutgaqzih and management of inpatientAhmad MousscolinOhiohealth Doctors Hospital Start: 10-30-2021 End: 58-48-3889Fux Drop offBreanna Gu [facility] Start: 10-10-2021 End: 21-65-2884Ufx-admission assessmentNancy GUTIERREZ [facility] Start: 10-09-2021 End: 60-44-5150Nvagunpdy department patient visitSantos JoelMaris Velez [facility] Start: 10-03-2021 End: 31-87-5357Mbfkhrk encounter procedureBreanna Gu [facility] Start: 09-30-2021 End: 59-74-1467Sptctvz encounter procedureBreanna Gu [phone]-MhwowClinton Memorial Hospital [facility] Start: 09-30-2021 End: 69-86-4842Tkbgrxhmnccxu examination doneBreanna Gu [phone]-SwtxlClinton Memorial Hospital [facility] Start: 09-27-2021 End: 22-33-7138Gvowwns encounter procedureSoto BoxOhiohealth Doctors Hospital Start: 09-02-2021 End: 90-57-0792Iud-admission assessmentAmancecilia GUTIERREZ [facility] Start: 09-02-2021 End: 43-71-7218Elkygrk encounter Balwinder Abbott [facility] Start: 08-29-2021 End: 87-32-1047Wymksyg encounter procedureBreanna Gu [facility] Start: 06-14-2021 End: 73-28-3851taeqzlmawiHgvcpc Dymond Other Norman Spacedeck Other Start: 71-45-9677Udzaxa outpatient visit 15 minutes Herlinda AsimG [facility] ClydeStart: 08-02-2020 End: 53-49-2367Tdxtrt OnlyKathleen Saira Baxter Work Phone: [facility] Start: 06-03-2020 End: 07-14-6978Npugrgroiz and management of inpatientKATADALGISA [facility] Hospitaltart: 57-51-4197Xtfagzoc care ill/injured patient init 30-74 minDavilauren Hankins Work Phone: [facility] HospitalStart: 06-03-2020 End: 84-04-1178Etfoxlrmck and management of inpatientDavid Keshav Hankins Work Phone: [facility] on above:Type 2 diabetes mellitus with left diabetic foot infection (HCC) (Primary Dx); Diabetic infection of left foot (HCC); Abscess of chinStart: 08-10-2019 End: 81-08-3975Xyvyscvht department patient visitANDREA Thuy CAMPIFacility:[facility] Start: 11-29-2018 End: 61-19-2674Zkubguc encounter procedureMattSalem Regional [facility] Start: 09-07-2018 End: 93-73-1180Ywnhucutkk and management of inpatientLivingston [facility] Start: 42-29-6741Ojyjwalxvf RecurringLattPhoebe [facility] Start: 07-23-2018 End: 71-63-9948Eqhsqlgbbq RecurringLivingston Hospital and Health Services [facility] Start: 06-25-2018 End: 48-55-5343Srrcqdn encounter procedureNONE PHYSICANFacility:Start: 05-04-2018 End: 81-83-6972Mpebwkb encounter procedureMattSalem Regional [facility] Center [facility] Start: 09-01-2017 End: 12-73-6387Qlcautjuz department patient visitCEM [facility] HospitalStart: 07-17-2017 End: 76-01-5124WlztsflsilWHRVAPQ ALLAN SADAAHMETOur Lady of Mercy Hospital - AndersonStart: 06-26-2017 End: 84-73-0133Uzflqmnrj department patient visitMichi San Work Phone: [facility] Emergency DepartmentStart: 06-23-2017 End: 75-44-1937Ezucmoh encounter procedureMattFerry County [facility] Start: 02-16-2017 End: 44-86-9063Optchnhcd department patient visitCHMURIEL [facility] HospitalStart: 02-09-2017 End: 38-74-2307Aovmdoag ReferredMattSalem Regional [facility] Center [facility] Start: 01-16-2016 End: 91-47-7905Gqbjawqrl to day surgeryNorth [facility] Start: 10-02-2012 End: 53-36-0936Jgmqtcuiq department patient visitMattFerry County [facility] Start: 04-23-2012 End: 34-19-3391Cohupygk ReferredMattFerry County [facility] Start: 12-23-2009 End: 32-65-2627Sjnwsxmx ReferredMattFerry County [facility] Start: 12-21-2002 End: 48-46-7486Bcbaczgqs department patient visitMattw [facility] Start: 08-25-2002 End: 32-22-9976Rcomjzemm department patient visitMattFerry County [facility] Start: 06-27-2002 End: 36-12-8583Tnicodx encounter procedureMatthew WidmerFirelands Regional [facility] Start: 05-08-2002 End: 91-72-9594Vmjjujghp department patient visitMattHolzer Health System C[facility] Start: 10-25-2001 End: 79-75-5742Bxuagry encounter procedureMaKettering [facility] Start: 10-27-1999 End: 27-81-5757Dbdqcdawx department patient visitMattSalem Regional [facility] Start: 09-10-1999 End: 90-87-8634Pmdretecp department patient visitMattSalem Regional [facility] Procedures DateProcedureProcedure DetailPerforming ClinicianStart: 31-58-0616XHAQ OTHER ORDERSChristian Wei Kumar MD Work Phone: start: 02-02-2025 End: 43-18-7685Fuwe bld gluc mntr dev cleared fda spec home useSergio Resendez MD Work Phone: Start: 33-80-3147Evskg culturePocahontas John DUMONT Work Phone: Start: 18-07-9423WZVEOKF Olive Aguirre MD Work Phone: Start: 65-49-3715LIKKNYU GLUCOSEElda Aguirre MD Work Phone: Start: 48-60-2642Szxci metabolic panel calcium total Hanna Mari MD Work Phone: Start: 76-99-9714HVLAVAM Olive Aguirre MD Work Phone: Start: 54-76-3045VBBEIMV Olive Aguirre MD Work Phone: Start: 45-82-9424ROLSPJE Olive Aguirre MD Work Phone: Start: 50-76-3019TASXTSX GLUCOSEBryrosaura Aguirre MD Work Phone: Start: 14-06-9015Pwgmn metabolic panel calcium total Hanna Kamaljit STEVENS Work Phone: Start: 03-00-0368JHDDVYJ GLUCOSEVanessa Vargas MD Work Phone: Start: 26-76-7750FZGTFKF GLUCOSEVanessa Vargas MD Work Phone: Start: 94-31-7690VJTHDUX GLUCOSEVanessa Vargas MD Work Phone: [phone]: 12-03-2024 End: 96-68-7331OQNYLMD GLUCOSEVanessa Vargas MD Work Phone: Start: 12-03-2024 End: 31-53-4361KJFZRYN GLUCOSEVanessa Vargas MD Work Phone: Start: 67-27-8988HEVPYJU GLUCOSEVanessa Vargas MD Work Phone: Start: 12-03-2024 End: 59-98-9450GUJWVXU GLUCOSEVanessa Vargas MD Work Phone: Start: 12-03-2024 End: 55-27-1876Ceyunyirgpz panelLianne Mccormick MD Work Phone: Start: 12-03-2024 End: 50-03-6493OVHIFGZ GLUCOSEVanessa Vargas MD Work Phone: Start: 12-03-2024 End: 39-46-3830XCXXSMT GLUCOSEVanessa Vargas MD Work Phone: Start: 49-15-4933Oicsz depression screening assessment Addie Chavira MAStart: 79-32-0805Plevgh-up visitFollow-upLAURA LEANN PELAYOStart: 62-80-7943Ryvissfnhzdus metabolic panelLaura Leann LEONARDC Work Phone: Start: 31-49-0191Wzjer panelLaura Leann Pelayo PA-C Work Phone: Start: 66-98-4430Ncfbluk measurementSher Dianne Rizzo MD Work Phone: Start: 56-96-3259Wbphyyg [facility] Work Phone: Start: 69-45-0910Thqbx function panelSher Dianne Rizzo MD Work Phone: Start: 71-61-1607Zqvreoi [facility] Work Phone: Start: 61-22-4336Hjqtsvm [facility] Work Phone: Start: 52-08-9886Aktmezy [facility] Work Phone: Start: 67-21-7582Xywzbhk [facility] Work Phone: Start: 24-12-5029Duogb function panelSher Dianne Rizzo MD Work Phone: Start: 21-62-0323Qidpvkl [facility] Work Phone: Start: 32-60-2888Molcirp [facility] Work Phone: Start: 31-15-7808Eblyjye [facility] Work Phone: Start: 00-54-6405Kffdwpt [facility] Work Phone: Start: 71-06-6316Bqytehw [facility] Work Phone: Start: 10-32-8823Pembe function panelSher Dianne Rizzo MD Work Phone: Start: 29-80-4595Jybpnkc [facility] Work Phone: Start: 02-05-5183Lezgw foot complete minimum 3 views Jacoby Dooley MD Work Phone: Start: 37-97-6589Ajrye metabolic panel calcium total Jacoby Dooley MD Work Phone: Start: 71-22-2688Z-reactive proteinJacoby Dooley MD Work Phone: Start: 30-04-8612DNSO TATO Dooley MD Work Phone: Start: 15-51-6047AFSVMEYB Adalberto Dooley MD Work Phone: Start: 30-15-8278ZEVSU BLUE Adablerto Dooley MD Work Phone: Start: 19-64-1079LLSEG TATO Dooley MD Work Phone: Start: 78-01-3514GOKY TATO Dooley MD Work Phone: Start: 33-57-3588LFVMZMV Aristides Dooley MD Work Phone: Start: 06-23-6016Osuui function panelTodd Corbey DO Work Phone: Start: 74-59-3356Uzjxs function panelTodd Corbey DO Work Phone: Start: 88-31-9954Ptnxddz measurement[facility] Work Phone: Start: 62-42-2162Tpztu function panelTodd Corbey DO Work Phone: Start: 41-13-9081Nmejsci measurementGeneric [facility] Work Phone: Start: 52-26-6011Xfncu foot complete minimum 3 views Shameka Castillo DPM Work Phone: Start: 04-01-2024 End: 57-30-1127Okw bact xcpt urine blood/stool aerobic isolMattlori Castillo DPM Work Phone: Start: 04-01-2024 End: 14-09-1131Efexddjfsz toe metatarsophalangeal jointMattlori Castillo DPM Work Phone: Start: 35-84-0299Nsgkznq [facility] Work Phone: Start: 53-92-0370Zpsrl function panelTodd Corbey DO Work Phone: Start: 06-83-8379Nn lower extremity w/o contrast materialMattlori Castillo DPM Work Phone: Start: 92-73-6080Na abdomen & pelvis w/o contrast materialMiryam Stephany Rajput MD Work Phone: Start: 03-41-5149Vqfvt function panelTodd Corbey DO Work Phone: Start: 71-77-3369Fqcrijt [facility] Work Phone: Start: 06-15-7665Kpnnuow [facility] Work Phone: Start: 89-66-3065Cemjffj [facility] Work Phone: Start: 22-72-7960Yosuarj [facility] Work Phone: Start: 42-64-5028Apjpa function panelTodd Corbey DO Work Phone: Start: 60-75-1235Uxlqfsn [facility] Work Phone: Start: 32-00-8297Sbkhcxz [facility] Work Phone: Start: 03-29-2024 End: 04-73-2410Pbpjoyt [facility] Work Phone: Start: 25-76-7124Qwzxwut [facility] Work Phone: Start: 08-32-8033Wnoqh function panelTodd Corbey DO Work Phone: Start: 59-28-1950Rmkzgja [facility] Work Phone: Start: 36-18-2226Oxrosbn [facility] Work Phone: Start: 47-19-1292Pbxpvkd [facility] Work Phone: Start: 24-92-2524Nuqqzuj [facility] Work Phone: Start: 90-02-3338Jsexf function panelTodd Corbey DO Work Phone: Start: 58-52-5175Ajaaypv [facility] Work Phone: Start: 06-02-6697Od retroperitoneal real time w/image Declan Serrato MD Work Phone: Start: 14-11-9230Vlglkee [facility] Work Phone: Start: 16-17-5883Khmmjac [facility] Work Phone: Start: 66-87-7228Bixttud [facility] Work Phone: Start: 03-27-2024 End: 94-56-1328Pgmklwvocv exam chest single viewTodd Corbey DO Work Phone: Start: 95-02-1498Vmfldup [facility] Work Phone: Start: 95-42-7891Yfxarhtyktnkc metabolic panelDella Jordan John CLINICAL DOCUMENTATION SPECIALIST Work Phone: Start: 64-14-6188Ayhqosw [facility] Work Phone: Start: 73-62-1154Qceyg metabolic panel calcium total John Chaparro MD Work Phone: Start: 83-26-0551Wnlkmck [facility] Work Phone: Start: 21-39-4466Phsuybl [facility] Work Phone: Start: 11-78-7952Twuxcmi measurement[facility] Work Phone: Start: 03-26-2024 End: 25-02-7700Jbzuvbu measurementGeneric [facility] Work Phone: Start: 57-92-7272Lsrbnjlbli bloodRylee Manish [facility],PharmDStart: 95-28-0529UYVTPGQC TOPJennifer Lopez [facility] Work Phone: Start: 54-47-6357MNGSCMA DRAWJennifer Lopez [facility] Work Phone: Start: 60-28-9653Lxbpaxv measurement[facility] Work Phone: Start: 49-30-0210Mybziqv measurement[facility] Work Phone: Start: 36-91-5849Zuorn of lactateAni Gonzales [facility] Work Phone: Start: 38-62-7534Oao bact xcpt urine blood/stool aerobic isolBryha Rajan PA-C Work Phone: Start: 54-90-2597Zgqcrem measurement[facility] Work Phone: Start: 86-40-4407Otmcp of lactateAni Gonzales [facility] Work Phone: Start: 99-40-3933VjfdenwicrgfpzqshIpwjhpc [facility] Work Phone: Start: 03-25-2024 End: 99-39-7005Ddqkl metabolic panel calcium totalImbutch Smith MD Work Phone: Start: 03-25-2024 End: 62-18-4769Odvsclj measurement[facility] Work Phone: Start: 03-25-2024 End: 60-84-5525Hyutefm measurementDatamika Aaron MD Work Phone: Start: 24-13-9486Odknxuf bacterial quanttative colony count urineAni Gonzales [facility] Work Phone: Start: 19-02-9349Tvz routine ecg w/least 12 lds trcg only w/o i&rAlaina Camila Gonzales CLINICAL DOCUMENTATION SPECIALIST Work Phone: Start: 12-33-0633Offoahuqnqasm metabolic panelAni Gonzales [facility] Work Phone: Start: 66-15-7468Jvmxk blood ph direct jordin xcpt pulse oximitryAldebbie Gonzales [facility] Work Phone: Start: 55-29-3537QWJK Russell Aaron MD Work Phone: Start: 65-44-4206Yhkumxa function panelAni Gonzales [facility] Work Phone: Start: 38-75-6505JGOAD BLUE Russell Aaron MD Work Phone: Start: 12-80-9502YJNFQM VENOUS BLOOD GASES AND PERFORM Ani Gonzales [facility] Work Phone: Start: 54-02-5252XUNKOBF DRAWKo Aaron MD Work Phone: Start: 00-49-9598Icqwv toe minimum 2 viewsKo Aaron MD Work Phone: Start: 01-18-2024 End: 42-25-1676Zzvevkb measurementGeneric [facility] Work Phone: Start: 91-27-9821Isali function panelJojose Lainez PA-C Work Phone: Start: 35-54-4163Vwgkohc measurementGeneric [facility] Work Phone: Start: 28-61-2454Lfgxadf measurement[facility] Work Phone: Start: 97-26-1463Sflclww [facility] Work Phone: Start: 16-78-8655Wn head/brain w/o contrast material Ruthy Dong MD Work Phone: Start: 97-94-6212Yzlebnk [facility] Work Phone: Start: 96-16-1063Errvmrv [facility] Work Phone: Start: 40-84-1000Lsgtp function panelJoua Migel PA-C Work Phone: Start: 52-71-1808Jehpyia [facility] Work Phone: Start: 92-14-6672Jhizy dip stick/tablet reagent auto microscopyMary Lou Castillo CLINICAL DOCUMENTATION SPECIALIST Work Phone: Start: 74-80-3852Uhhxqdq [facility] Work Phone: Start: 97-12-1071Tt retroperitoneal real time w/image completeAlloumar Castillo CLINICAL DOCUMENTATION SPECIALIST Work Phone: Start: 71-70-7142Yinecxa [facility] Work Phone: Start: 78-59-5450Jipavwn [facility] Work Phone: Start: 70-29-8390Ccadp function panelJoshua Sedona PA-C Work Phone: Start: 01-15-2024 End: 40-50-2309Inwydmw [facility] Work Phone: Start: 05-00-6768Fhsei function panelJoshua Sedona PA-C Work Phone: Start: 67-14-2949Rqyxd dip stick/tablet reagent auto microscopyRuthy Dong MD Work Phone: Start: 88-62-7252Kayzjlv [facility] Work Phone: Start: 06-25-4003Rjhmots measurement[facility] Work Phone: Start: 15-94-0879Gsfytne measurement[facility] Work Phone: Start: 27-48-4636Nsttqmu measurement[facility] Work Phone: Start: 23-56-6591Tmfve function panelJojim Lainez PA-C Work Phone: Start: 00-42-8229Yicnbiu [facility] Work Phone: Start: 01-13-2024 End: 24-12-0212Jekzhnb measurement[facility] Work Phone: Start: 88-99-0375Fn lower extremity w/o contrast materialMatthew Timothy Castillo DPM Work Phone: Start: 47-50-2942Dimhmcl [facility] Work Phone: Start: 42-48-4158Czzmblc measurement[facility] Work Phone: Start: 48-07-1062Kvyit count complete automatedEnrique Lainez PA-C Work Phone: Start: 39-85-9341Qvxqw function panelEnrique Lainez PA-C Work Phone: Start: 23-06-7020Huj routine ecg w/least 12 lds trcg only w/o i&rJlandry Leigh MD Work Phone: Start: 08-28-0169Iqtdcsr measurementGeneric [facility] Work Phone: Start: 00-28-7013Flssq foot complete minimum 3 views Matheus Chavira PA-C Work Phone: Start: 81-80-1414Rwvcp metabolic panel calcium total Matheus Merrick Chavira PA-C Work Phone: Start: 98-49-5430N-reactive proteinZamonisha Merrick Chavira PA-C Work Phone: Start: 14-51-6530VCCWYWCL Adalberto Dooley MD Work Phone: Start: 02-44-7955PODKZ BLUE Adalberto Dooley MD Work Phone: Start: 64-59-7802AXBZJ GREEN Adalberto Dooley MD Work Phone: Start: 66-05-5715YNMA GREEN Adalberto Dooley MD Work Phone: Start: 67-00-8337UZDIBFM DRAWJacoby Dooley MD Work Phone: Start: 50-35-0364Ponzpbwdj influenzaLabryan Pelayo PA-C Work Phone: Start: 11-08-7004Jlkm-cov-2 detection by dna/rnaLaura Leann Pelayo PA-C Work Phone: Start: 19-89-8181Bvmoho photography w/interpretation & reportAnders London MD Work Phone: Start: 30-40-0800Mwyxmtjmcs ultrasound dx b-scan w/wo a-scanAnders London MD Work Phone: Start: 49-36-5540Kubgtyelqvww [Mass/volume] in Urine by Test stripStepsidra Gaydanica LPNStart: 08-26-2023 End: 63-52-5329Peieeipdhr examination tibia & fibula 2 viewsAndkael Mercado MD Work Phone: start: 02-63-5628Ntemhpx measurementSileshi Manoj Hennessy MD Work Phone: Start: 20-56-4258Khcmnuf measurement[facility] Work Phone: Start: 46-19-0720Odjad function panelJoshua Migel PA-C Work Phone: Start: 73-52-7228Yakzhdx measurement[facility] Work Phone: Start: 14-40-0765Xlues of troponin quantitativeKo Aaron MD Work Phone: Start: 39-48-8168BtekydwoojjcotltfRnloq Paul Androw MD Work Phone: Start: 23-32-0119Gfypijb measurementGeneric [facility] Work Phone: Start: 36-31-2391Euogeeuvzistp metabolic panelKo Aaron MD Work Phone: Start: 66-26-1329Zcvejiu function panelKo Aaron MD Work Phone: Start: 58-37-3571MNLIZ BLUE Russell Aaron MD Work Phone: Start: 03-98-2842QOVHW GREEN Russell Aaron MD Work Phone: Start: 46-62-9361KUYUNNF DRAWKo Aaron MD Work Phone: Start: 26-27-4379Ag thorax w/o contrast materialDatamika Aaron MD Work Phone: Start: 76-83-1130Zioubzisla exam chest single view Ko Aaron MD Work Phone: Start: 97-94-2967Vdibqss measurement[facility] Work Phone: Start: 68-71-5610Iwqww metabolic panel calcium total Harshad Dianne Rizzo MD Work Phone: Start: 66-33-7101Wekrvod measurementGeneric [facility] Work Phone: Start: 52-25-4023Jzigpgb measurementGeneric [facility] Work Phone: Start: 66-77-1355Fuvcjjg measurementGeneric [facility] Work Phone: Start: 66-84-5577Jpcapdu measurementGeneric [facility] Work Phone: Start: 72-77-3478Xuzkuaq measurementGeneric [facility] Work Phone: Start: 02-19-2023 End: 02-68-0784Ttfakjf bacterial blood aerobic w/id isolatesHarshad Rizzo MD Work Phone: Start: 02-19-2023 End: 17-21-8055Idlmm metabolic panel calcium totalSher Dianne Rizzo MD Work Phone: Start: 21-51-6383Fffxcwa measurement[facility] Work Phone: Start: 63-86-5867Dbwxqsx measurementGeneric [facility] Work Phone: Start: 86-66-2616Wria tthrc r-t 2d w/wom-mode compl spec&colr dSher Dianne Rizzo MD Work Phone: Start: 46-67-1471Hrjzpeu measurement[facility] Work Phone: Start: 08-91-1812Ebjkbta measurementGeneric [facility] Work Phone: Start: 99-31-1527Xnlrsmitkm spect multiple studies Cate King MD Work Phone: Start: 67-62-3096Fseobpj measurementGeneric [facility] Work Phone: Start: 76-67-7987Bpltz of troponin quantitativeVitimothy Butcher MD Work Phone: Start: 44-23-6889PgeivustzqxyuypbqJyqtalp [facility] Work Phone: Start: 02-18-2023 End: 06-75-3809Dravp metabolic panel calcium totalVijay Seb Guadalupe MD Work Phone: Start: 31-47-3014Trtgypl measurementGeneric [facility] Work Phone: Start: 46-45-9969Nizgf of troponin Ashley Butcher MD Work Phone: Start: 63-93-4004At thorax w/o contrast materialHayde Pickering DO Work Phone: Start: 70-84-2790Rn head/brain w/o contrast material Hayde Pickering DO Work Phone: Start: 65-06-6157Qowem dip stick/tablet reagent auto microscopyHayde Pickering DO Work Phone: Start: 89-50-2382Ckhojeipapjps metabolic panelHayde Pickering DO Work Phone: Start: 24-20-5191QCIOK BLUE TOPHayde Reyes DO Work Phone: Start: 84-19-0795VSFWI GREEN TOPHayde Reyes DO Work Phone: Start: 19-24-6013JEQMVBZ DRAWHayde Reyes DO Work Phone: Start: 36-85-0713Jszjejwcwa exam chest single view Hayde Pickering DO Work Phone: Start: 66-68-4715Fbm routine ecg w/least 12 lds w/i&r Hayde Pickering DO Work Phone: Start: 34-55-8163Me cervical spine w/contrast material Nikko Kendrick DO Work Phone: Start: 78-76-1117NZ Thoracic and lumbar spine W contrast IVAaron Kendrick DO Work Phone: Start: 23-64-0947Pvpufwptuvp timeChrismissy Clay MD Work Phone: Start: 78-45-2613Inuzk typing, ABO, Rho(D) and RBC antibody screeningAaron Kendrick DO Work Phone: [phone]: 88-09-3122Fsjlm of magnesiumAaron Kendrick DO Work Phone: Start: 35-58-7873V-reactive proteinAaron Kendrick DO Work Phone: Start: 18-18-6580Tqhzw culture for bacteria, including anaerobic screenNP-C Kip SoviKeybroker Work Phone: Start: 68-98-8597Akgzr volume recorder pneumoplethysmographyNP-C Kip Soviak Work Phone: Start: 97-94-3432P-ray of left footNP-C Kip Soviak Work Phone: Start: 44-10-4675Teegeecypnq examination of blood, cultureYESENIA ZAMUDIO .Comment on above:Performed By: #### [id number] ####[facility] Bphjamt[address] [place], [place] [address]Dr. Devin Suresh Start: 87-44-0223Gjvn screen, qualitate/multiMartin Beti Sosa MD Work Phone: Start: 78-51-9410Arvfrijomr microscopic onlyMarfadumo Sosa MD Work Phone: Start: 38-01-6442Ckkfy dip stick/tablet rgnt auto w/o microscopyMartin Beti Sosa MD Work Phone: Start: 43-01-1478Ihwcmhv [Mass/volume] in BloodJames Pascual Work Phone: Start: 24-91-7598Lkdmopk microbial cultureLisa Hendrickson Work Phone: Start: 29-65-5942Erbtliq [Mass/volume] in BloodJames Pascual Work Phone: Start: 57-91-5269Yxjhjqo [Mass/volume] in BloodBridger Garner Work Phone: [phone]: 95-39-3070Qtkbs metabolic 1999 panel - Serum or PlasmaBridger Garner Work Phone: [phone]: 40-25-3761Ofhhxrmw blood count (hemogram) panel - Blood by Automated countBridger Garner Work Phone: [phone]: 00-16-6427Aiezhwkbv [Mass/volume] in Serum or PlasmaBridger Garner Work Phone: [phone]: 00-72-0469Rhcmqbypwpi [Units/volume] in Serum or Plasma by Detection limit <= 0.005 mIU/LJames Pascual Work Phone: [phone]: 96-48-9971Cbvgkvg [Moles/volume] in Serum or PlasmaBridger Garner Work Phone: [phone]: 44-46-2889Kyireyw [Mass/volume] in BloodBridger Garner Work Phone: [phone]: 97-79-9195Izeluhw [Mass/volume] in BloodBridger Garner Work Phone: [phone]: 55-26-6249Aonaits [Mass/volume] in BloodKatyn Leann Bolivar Work Phone: [phone]: 93-51-8409Utkfdki [Mass/volume] in BloodKathryn Leann Sheldon Work Phone: Start: 79-13-5463Eeuzv metabolic 2000 panel - Serum or PlasmaKathryn Leann Bayteresita Work Phone: [phone]: 82-71-5886Utbdhpbq blood count with white cell differential, automatedBreanna Bolivar Work Phone: Start: 32-24-3257Yfuxmoqq blood count with white cell differential, manualKatafia Bolivar Work Phone: [phone]: 84-64-7291Vcoqtqpmmr A1c/Hemoglobin.total in BloodDeanna H CareyStart: 77-58-8030Krozrixte [Mass/volume] in Serum or Plasma Breanna Bolivar Work Phone: Start: 98-29-6859Eosrr of lactateDavid Estlow Hankins Work Phone: Start: 46-16-4840Gguktqd [Mass/volume] in BloodBreanna Bolivar Work Phone: Start: 36-57-0078WGWKN-19, MOLECULARDavid Estlow Hankins Work Phone: Start: 47-45-2386Gf lower extremity w/o contrast materialDavid Estlow Hankins Work Phone: Start: 47-04-2102Xykkysqq identified in Blood by CultureDavid Estlow Hankins Work Phone: Start: 36-29-0762Lzsfm metabolic 1998 panel - Serum or PlasmaDavid Estlow Hankins Work Phone: Start: 47-00-1462Imeyawpf blood count with white cell differential, automatedDavid Estlow Hankins Work Phone: Start: 21-92-6580Nmpzbvke blood count with white cell differential, manualDavid Estlow Hankins Work Phone: Start: 28-77-3673Pucotgj [Moles/volume] in Serum or PlasmaDavid Estlow Hankins Work Phone: Start: 30-79-3204LRWPQ BLUE TOPDavid Estlow Hankins Work Phone: Start: 39-36-8473HVYNJ GREEN TOPDavid Estlow Hankins Work Phone: Start: 59-71-4358NSNLBNX DRAWDavid Estlow Hankins Work Phone: Start: 43-41-0795Kbpkxodgttv of ankleBreanna Riccardo Comment on above:Left achilles tendon tennex procedure Left achilles tendon tennex procedureStart: 93-20-2755MG head/brain wo con Shameka Whitetart: 71-66-1860Jjiut chest X-rayMattcassandra AlemanMemorial Medical Centertart: 07-14-2018 Aerobic microbial cultureMattcassandra AlemanMemorial Medical Centertart: 62-93-0759Qlndsuogzix urinalysis KEYLA TERENCEStart: 05-18-7023UlnykppeasRRDKCMUKPKT TERENCEStart: 09-01-2017 BASIC METABOLIC PANELCHRISTOPHER TERENCEStart: 59-08-7368KJJYA GAS, VENOUS ANTONIOANAND TERENCEStart: 71-40-7428Wzi-scan xtr veins complete bilateral study KEYLA TERENCEStart: 59-86-0517Obxnekkpon exam chest 2 viewsCHRISTOPHER PRATT Start: 94-12-8609ZGZSZ METABOLIC PANELCHRISTOPHER TERENCEStart: 09-01-2017 BETA-HYDROXYBUTYRATECHRISTOPHER TERENCEStart: 14-85-9682RJPYXTMYZSCUOR TERENCEStart: 11-90-9780N-DIMER, QUANTITATIVECHRISTOPHER TERENCEStart: 59-96-7261TDUCWPF LEVEL KEYLA TERENCEStart: 12-76-9139SJXQAQXEGCSUZUBTXNHP TERENCEStart: 09-01-2017 TROPONINCHRISTOPHER TERENCEStart: 38-99-9284TIWLXYG MONITORCHRISTOPHER TERENCEStart: 74-13-3662JDFURM PERIPHERAL IVCHRISTANAND TERENCEStart: 95-24-2109TYN 12-LEAD KEYLA TERENCEStart: 39-33-3203Uuqyydgf of Romel Gu Comment on above:PLANTAR FASCIOTOMY ENDOSCOPIC, Left. with ankle lateral stabilization.PLANTAR FASCIOTOMY ENDOSCOPIC, Left. with ankle lateral stabilization.Start: 55-39-6891Muywupramtc of cervical spineMacleveland clinic mercy hospitalcassandra Whitetart: 51-02-3600Cetbwijsnop urinalysisCHRISTOPHER TERENCEStart: 02-16-2017 UA W/REFLEX CULTURECHRISTOPHER TERENCEStart: 73-23-7500YZQPH CULTURECHRISTOPHER TERENCEStart: 32-22-8787QYOTELJRHKHBSHMTQYI TERENCEStart: 09-91-8159Gatwl x-ray 1 view frontalCHRISTOPHER DAVISStart: 93-91-7967KTFYLX PERIPHERAL IVCHRISTANAND TERENCEStart: 94-14-5615KLA 12-LEADCHRISTOPHER DAVISStart: 62-62-4191FCUF KEYLA TERENCEStart: 11-71-7523NSJAF METABOLIC PANELCHRISTOPHER DAVISStart: 94-02-2611ENOAE NATRIURETIC PEPTIDECHRISTOPHER DAVISStart: 86-20-9362JVR WITH AUTO DIFFERENTIALCHRISTOPHER DAVISStart: 11-83-9744V-DIMER, QUANTITATIVE KEYLA DAVISStart: 31-11-9181QKZIXEI-INRCHRISTOPHER DAVISStart: 02-16-2017 TROPONINCHRISTOPHER DAVISStart: 47-72-3404Fuxdp Plantar FasciotomyArianneadalgisa Gu Start: 07-18-3118Isqakebcgcww [Mass/volume] in Urine by Test stripDavid HydeAnkleKleoelvialuli Gu ankle surgery ORIF 3Kathelvialuli Riccardo Comment on above:bilateralbilateralCholecystectomy Breanna Herediaell ColonoscopyBreanna Gu Dentition (body structure)Breanna Gu EsophagogastroduodenoscopyPastoraafia Gu HysterectomyBreanna Gu insertion of Infusaport 4Katafia Gu Comment on above:right chestright chestLaparoscopy Breanna Gu Loop electrosurgical excision procedure of cervix Breanna Gu pacemaker 5Pastoraafia Gu Comment on above:Jan 2012- [facility]Structure [facility] proper (body structure) Breanna Gu Plan of Treatment DateCare ActivityDetailAuthorStart: 78-83-7325HZT Vaccines (1 - 1-dose 75+ series)RSV Vaccines (1 - 1-dose 75+ series)[facility] HospitalStart: 07-28-5754AVrY,Tdap and Td Vaccines (2 - Td or Tdap)DTaP,Tdap and Td Vaccines (2 - Td or Tdap) [facility] Hospitaltart: 60-43-2435Iamefov vaccinationMetroHealthStart: 77-21-7418Rlskazllypr for diphtheria, pertussis, and tetanus Tetanus/Diphtheria/Pertussis (2 - Td or Tdap)[facility]HealthStart: 2027 Administration of herpes zoster vaccineZoster Vaccines (1 of 2)[facility]HealthStart: 16-71-3355Sccjsepz (RZV) Vaccine (1 of 2)Shingles (RZV) Vaccine (1 of 2) [facility]HealthStart: 95-78-9738Jmeivpvflel [Mass/volume] in Serum or Plasma CholesterolMetroHealthStart: 82-41-4898Tacuf BMI ScreeningAdult BMI Screening [facility] Hospitaltart: 48-00-4464Uvznufqdmg ScreeningDepression Screening [facility] Hospitaltart: 31-03-2633Rwphzsf ScreeningTobacco Screening [facility]2025 End: 74-01-8899Hauxmlq encounter cwlolqeqr75/06/2026 2:00 PM EDT Procedure Visit [facility] [address] [place] [address] Lj Negron DO [address] Lyn [place] [address] DOM[facility] BRIGHTtart: 37-90-7095Dldaz screening for proteineGFR DiabetesOhioHealthStart: 05-30-2025 End: 52-24-8984Frtxjlr encounter fnemrnbkb26/06/2026 3:05 PM EST Office Visit [facility] Pain Management [place] [facility] [place] [address] Jim Velez, DO [address] [place] [address] [facility] Pain Management MarionStart: 43-15-6910Wxaerxfrki A1c measurementSamaritan Hospital Start: 05-04-2025 End: 85-84-3814Bkoqwpb encounter afnalnrjc00/11/2025 11:30 AM EST Office [facility] [address] [place] [address] Sergio Resendez MD [address] [place] [address] [facility]ologyStart: 04-24-2025 End: 50-30-1611Ywfwjae encounter whgjewcwx38/01/2025 11:15 AM EST Appointment [facility] MRI [address] [place] [address] Raul Kumar MD 35[address] [facility] [address] [place] [address] [facility] MRIStart: 04-21-2025 End: 85-43-9034Dnnfvfp encounter nzklfivwo93/28/2025 11:15 AM EST Appointment [facility] MRI [address] [place] [address] Raul Kumar MD 3525 [facility] [address] [place] [address] [facility] MRIStart: 97-68-9884Wkpzm screening for proteineGFR DiabetesOhioHealthStart: 03-25-2025 eGFR DiabeteseGFR DiabetesOhioHealthStart: 85-48-4371Kxhts screening for protein eGFR DiabetesOhioHealthStart: 75-62-1046Txtey screening for proteineGFR Diabetes CaliforniaHealthStart: 03-08-2025 End: 83-53-3859Whkbdwo encounter bdyosuzjy06/15/2025 11:30 AM EDT Office Visit [facility] Neurological Physicians [address] [facility] [address] [place] [address] Mihai Elizalde, CLINICAL DOCUMENTATION SPECIALIST [address] [place] [address] Raul Kumar MD 3525 [facility] [address] [place] [address] [facility] Neurological PhysiciansStart: 95-93-9489Oourmtwwkn A1c measurementDiabetes: Hemoglobin I3OHKHS HealthcareStart: 03-03-2025 End: 26-18-7994Shljvxu encounter ncduapfqs28/10/2025 8:00 AM EDT Office Visit [facility] [address] [place] [phone] Lexy Leach MD [address] [place] [phone] [facility]: 11-34-8718KVIYC-19 Vaccine () COVID-19 Vaccine ()OhioHealthComment on above:Postponed from 01/24/2024 (Treatment Not Available)Start: 89-11-7854NKSPN-19 Vaccine ()COVID-19 Vaccine ()OhioHealthComment on above: Postponed from 01/24/2024 (Treatment Not Available)Start: 02-02-2025 End: 300985-mwsggfqprrfkak D3 [Mass/volume] in Serum or PlasmaVitamin D 25 hydroxy Total Lab Routine Type 2 diabetes mellitus with hyperglycemia, with long-term current use of insulin (HCC) Expected: 02/02/2025 (Approximate), Expires: 02/02/2026NOPA HealthcareComment on above:Expected: 02/02/2025 (Approximate), Expires: 02/02/2026Start: 02-02-2025 End: 94-35-2822W-peptideC-peptide Lab Routine Type 2 diabetes mellitus with hyperglycemia, with long-term current use of insulin (HCC) Expected: 02/02/2025 (Approximate), Expires: 02/02/2026[facility] Work Phone: Comment on above:Expected: 02/02/2025 (Approximate), Expires: 02/02/2026Start: 13-20-1586Rdknpcljkp A1c bmvpnczgbamTRS3T TESTOSCity Hospitaltart: 02-02-2025 End: 16-18-1099Jssmc 1996 panel - Serum or PlasmaLipid panel Lab Routine Type 2 diabetes mellitus with hyperglycemia, with long-term current use of insulin (HCC) Expected: 02/02/2025 (Approximate), Expires: 02/02/2026[facility] Comment on above:Expected: 02/02/2025 (Approximate), Expires: 02/02/2026Start: 02-02-2025 End: 78-93-1555Jmtmtslaizhy/Creatinine panel in random UrineMicroalbumin / creatinine urine ratio Lab Routine Type 2 diabetes mellitus with hyperglycemia, withlong-term current use of insulin (HCC) Expected: 02/02/2025 (Approximate), Expires: 02/02/2026[facility] HospitalComment on above:Expected: 02/02/2025 (Approximate), Expires: 02/02/2026Start: 02-02-2025 End: 87-56-6652Bbqem function panelRenal function panel Lab Routine Type 2 diabetes mellitus with hyperglycemia, with long-term current use of insulin (HCC) Expected: 02/02/2025 (Approximate), Expires: 02/02/2026[facility] Comment on above:Expected: 02/02/2025 (Approximate), Expires: 02/02/2026Start: 02-02-2025 End: 74-60-2775Kpfeoaz encounter bojtdkcgw51/11/2025 10:50 AM EDT Office Visit [facility] [address] [place] [address] Sergio Resendez MD [address] [place] [address] [facility] EndocrinologyComment on above:ArrivedStart: 07-62-4250SOSRX-19 Vaccine ( season)COVID-19 Vaccine ( season)OhioHealthStart: 34-63-1857Nutzsupkp vaccination OhioHealthStart: 60-76-4513Idyqa screening for proteineGFR DiabetesOhioHealth Start: 01-05-2025 End: 59-41-3948Qmqvomd encounter /14/2025 7:30 AM EDT Office Visit [facility] Pain Management [place] [address] [place] [address] Mihai Elizalde, CLINICAL DOCUMENTATION SPECIALIST [address] [place] [address] [facility] Physician [facility] Pain Management MarionStart: 33-44-7778Iyfqxceqwq A1c stmkendjhzyA6ZRedgYqllfwDnlrc: 90-50-6073Mpkqgeac identified in Urine by CultureUrine [facility]tart: 82-47-4988Jidlk [facility] Start: 12-21-2024 End: 62-31-8462Mlaavyh encounter ihxopkrhe23/30/2025 10:40 AM EDT Office Visit [facility] Pain Management [place] [address] [place] [address] Mihai Elizalde, CLINICAL DOCUMENTATION SPECIALIST [address] [facility] [place] [address] [facility] Physician [facility] Pain Management MarionStart: 12-12-2024 End: 81-76-4817Eihilbb encounter tnnizuyoz58/21/2025 3:30 PM EDT Office Visit [facility] Endocrinology [address] [place] [address] Sahara Sanchez MD [address] [facility] [place] [address] [facility] EndocrinologyStart: 12-07-2024 End: 18-66-3886Wgafdwd encounter dayazckya41/16/2025 10:00 AM EDT Office Visit [facility] [address] [place] [address] [place], [place] [phone] Lindsay Johnson, INSPECTOR GOLF BALL-CLINICAL DOCUMENTATION SPECIALIST [address] [place] [address], [place] [address] [facility] MedicineStart: 12-05-2024 End: 17-07-0806Aujopln encounter mdxvrnezm98/14/2025 2:20 PM EDT Office Visit [facility] Primary Care Physicians [facility] [place] [address] Stephany Pelayo PA-C [employer] [address] [address] [facility] Primary Care PhysiciansStart: 64-24-8435Jieeqzck foot examinationDiabetic Foot Exam OhioHealthStart: 26-91-6435Hbywqcps screeningOhioHealthStart: 11-02-2024 Hemoglobin A1c zmhbcqglyuwC5VQvzfSlzyxvGqwcx: 02-15-6254Oxfoe screening for proteineGFR DiabetesOhioHealthStart: 10-14-2024 End: 42-44-7267Jvlmton encounter kawblppzf15/23/2025 8:40 AM EDT Office Visit [facility] Primary Care Physicians [facility] [place] [address] Stephany Pelayo PA-C [address] [address] [facility] Primary Care PhysiciansStart: 10-11-2024 End: 98-42-1189Bkxwlta encounter iwonmbcxo20/20/2025 2:30 PM EDT Office Visit [facility] Orthopedics [address] [place] [address] [place], [place] Mery Robles MD [address] [place] [address] [facility] OrthopedicsStart: 10-10-2024 End: 60-06-6481Sahouht encounter lkvayruqw67/19/2025 3:40 PM EDT Office Visit [facility] Primary Care Physicians [address] [place] [address] Stephany Pleayo PA-C [address] [place] [address] [facility] Primary Care PhysiciansStart: 09-28-2024 End: 82-30-3655Ttxvqnc encounter nlspytcie63/07/2025 9:45 AM EDT Office Visit [facility] Endocrinology [address] [place] [address] Sahara Sanchez MD [address] [facility] [place] [address] [facility] EndocrinologyStart: 78-01-5455Kikyq screening for proteineGFR DiabetesOhioHealthStart: 09-23-2024 End: 92-47-1262Drnrpfpq Lab Urine Drug ScreenExternal Lab Urine Drug Screen Lab Routine Lumbar radiculopathy Chronic pain syndrome Expected: 09/23/2024, Expires: 09/23/2025[facility] Work Phone: Comment on above:Expected: 09/23/2024, Expires: 09/23/2025Start: 09-23-2024 End: 97-81-3779Kzetijm encounter imgpxpplj14/02/2025 10:30 AM EDT Office Visit [facility] Pain Management [place] [address] [place] [address] Jim Velez DO [address] [place] [address] [facility] Pain Management [facility]tart: 56-94-9020Scghxft and physical examination, annual for health [facility] VisitOhioHealthStart: 63-78-0525Cwxtavqcj for malignant neoplasm of colonColorectal Cancer Screening/MonitoringOhioHealth Comment on above:Postponed from 1977 (Patient Refused)Start: 09-02-2024 Urine screening for proteinUrine MicroalbuminOhioHealthStart: 08-23-2024 End: 92-10-3265Ufioeqy encounter procedureC[facility] Orthopedics Start: 08-22-2024 End: 70-58-1738Pczdmhj encounter /31/2025 1:30 PM EDT Office Visit [facility] Primary Care Physicians [address] [place] [address] Rafaela Medrano, CLINICAL DOCUMENTATION SPECIALIST [address] [place] [address] [facility] Primary Care PhysiciansStart: 08-10-2024 End: 98-97-5086Oimiikd encounter procedureC[facility] Clinic [facility] Spine Surgery Start: 08-09-2024 End: 10-58-6627Mgasbch encounter ifaysgzbv99/18/2025 4:00 PM EDT Office Visit [facility] Pain Management [place] [address] [place] [address] Jim Velez DO [address] [place] [address] [facility] Pain Management Shanetart: 07-28-2024 End: 49-76-6232Owjsprp encounter tiubkxeoe99/06/2025 2:20 PM EST Office Visit [facility] Primary Care Physicians [address] [facility] [place] [address] Stephany Pelayo PA-C [address] [place] [address] [facility] Primary Care PhysiciansStart: 07-26-2024 End: 72-80-8182qpqbmunmqoMxianx Area Physicians Primary Care PhysiciansStart: 07-26-2024 End: 20-16-8858Sswnqzd encounter rskkeyozw38/04/2025 11:00 AM EST Office Visit [facility] Primary Care Physicians [address] [place] [address] Stephany Pelayo PA-C [address] [place] [address] [facility] Primary Care PhysiciansStart: 58-94-7221Qvjwp screening for proteineGFR Diabetes OhioHealthStart: 07-08-2024 End: 26-33-5214Qpsjygk encounter lecjqjzqs79/14/2025 8:50 AM EST Office Visit [facility] [address] [place] [address] Soto Box, DPM FACFAS [address] [place] [address] [facility] PODStart: 07-07-2024 End: 89-07-5362Tbrzslg encounter ehwfhggze38/13/2025 2:20 PM EST Office Visit [facility] Primary Care Physicians [address] [place] [address] Stephany Pelayo PA-C [address] [place] [address] [facility] Primary Care PhysiciansStart: 07-05-2024 End: 68-86-1803Qqlqcmh encounter wqtgdhbli39/11/2025 8:20 AM EST Office Visit [facility] [address] [place] [address] Soto Box, DPM FACFAS [address] [place] [address] ArrivedNOMS NMA PODComment on above:ArrivedStart: 06-22-2024 Hemoglobin A1c measurementOhioHealthStart: 06-20-2024 End: 45-36-3234Yrhhlms encounter jwtaceqrp20/27/2025 9:40 AM EST Office Visit [facility] Neurology [address] [facility] 2 [place] [address] Virgen Campos MD [address] [facility] [address] [place] [address] [facility] Physicians NeurologyStart: 05-11-2024 End: 78-59-5812ngdtgaxrjwZcsikg Area Physicians EndocrinologyStart: 05-11-2024 End: 70-35-8589Dvzpnix encounter nqowdgxga11/18/2024 2:15 PM EST Office Visit [facility] Endocrinology [address] [place] [address] Sahara Sanchez MD [address] [place] [address] [facility] EndocrinologyStart: 05-11-2024 End: 55-86-8246clljekttcsWmqwzmfgx Hospital Wound CareStart: 05-11-2024 End: 38-56-4620Apynhyj encounter ftudznrwt19/18/2024 10:15 AM EST Office Visit [facility] Wound Care [address] [place] [address] Ramiro Hale MD [address] [address] Discharge Disposition: Home [facility] Wound CareStart: 14-56-4663BZGXH-19 Vaccine ( season)COVID-19 Vaccine ( season)OhioHealthComment on above:Postponed from 01/23/2023 (Patient Refused)Start: 36-55-0837Hnzpfoqqb C screening Hepatitis C ScreeningOhioHealthComment on above:Postponed from 1995 (Patient Refused)Start: 82-24-7763BZW screeningHIV ScreeningOhioHealthComment on above:Postponed from 1992 (Patient Refused)Start: 88-94-2409Izdxkgeig for malignant neoplasm of cervixPap SmearOhioHealthComment on above:Postponed from 1998 (Patient Refused)Start: 05-05-2024 End: 68-95-9192Depsqnt encounter /12/2024 11:40 AM EST Office Visit [facility] [place] [address] Mihai Elizalde, CLINICAL DOCUMENTATION SPECIALIST [address] [place] [address] [facility] Pain Management MarionStart: 04-27-2024 End: 89-15-1064sdyunenqlaCvytDgffdu Physician Group Pain Management MarionStart: 04-27-2024 End: 53-50-9094Yccghqo encounter swvqbalbb68/04/2024 3:40 PM EST Office Visit [facility] Pain Management [place] [address] [address] Mihai Elizalde, CLINICAL DOCUMENTATION SPECIALIST [address] [place] [address] [facility] Physician [facility] Pain Management MarionStart: 04-19-2024 End: 84-90-5189Ppatwgo encounter shfsyscuk74/26/2024 8:40 AM EST Office Visit [facility] [place] [address] Mihai Elizalde, CLINICAL DOCUMENTATION SPECIALIST [address] [place] [address] [facility] Physician [facility] Pain Management MarionStart: 21-46-2980Tuzaxwzb foot examinationDiabetic Foot Exam OhioHealthStart: 04-22-6426Jlcvthfgqh A1c jzkbuqocgbaE1GSwrtFbdtrpAccch: 04-01-2024 End: 52-51-3531Chzustl encounter nfmeztmos18/08/2024 11:00 AM EST Office Visit [facility] [place] [address] Stephany Pelayo PA-C [address] [place] [address] [place] [address] [facility] Primary Care PhysiciansStart: 03-22-2024 End: 65-65-7554Ejwelul encounter khnxcohat45/29/2024 11:00 AM EDT Office Visit [facility] Primary Care Physicians [facility] [place] [address] Stephany Pelayo PA-C [address] [place] [address] [facility] Primary Care PhysiciansStart: 03-03-2024 End: 94-52-3459Wlbegld encounter procedureC[facility] Clinic [facility] Primary Care Start: 03-01-2024 End: 66-48-7844Wswcwow encounter cbafqcmkn58/08/2024 11:30 AM EDT Office Visit [facility] Psych [address] [place] [address] Zoë Garcia MD [address] [place] [address] [facility] Phys[facility] PsychStart: 02-17-2024 End: 55-15-9834Mrchkpr encounter rypocsono04/25/2024 1:40 PM EDT Office Visit [facility] Neurology [address] [place] [address] Virgen Campos MD [address] [place] [address] [facility] Physicians NeurologyStart: 02-10-2024 End: 85-43-2337Imdftwv encounter yplchmflj85/18/2024 1:00 PM EDT Office Visit [facility] Primary Care Physicians [facility] [place] [address] Rafaela Medrano, CLINICAL DOCUMENTATION SPECIALIST [address] [place] [address] [facility] Primary Care PhysiciansStart: 02-02-2024 End: 20-67-9095Zsrrort encounter dmglqniug49/10/2024 4:00 PM EDT Office Visit [facility] Pain Management [place] [address] [place] [address] Jim Velez, DO [address] [place] [address] [facility] Pain Management MariRicktart: 01-28-2024 End: 86-81-9747Fadrgjr encounter ymjydrlgx29/05/2024 2:00 PM EDT Office Visit [facility] Psych [address] [place] [address] Zoë Garcia MD [address] [place] [address] [facility] PsychStart: 01-27-2024 End: 05-08-7399Ogwdlri encounter pfktukrff10/04/2024 1:30 PM EDT Office Visit [facility] Primary Care Physicians [address] [place] [address] Rafaela Medrano, CLINICAL DOCUMENTATION SPECIALIST [address] [place] [address] [facility] Primary Care PhysiciansStart: 93-76-8665OBEVQ-19 VACCINE ( season)COVID-19 VACCINE ( season)[facility]: 20-93-7805YQWZD-19 Vaccine ( season)COVID-19 Vaccine ( season)[facility]: 25-67-2322MUBKF-19 Vaccine ( season)COVID-19 Vaccine ( season)[facility]tart: 50-69-0568Ewuzoupxr vaccinationInfluenza Vaccine (#1)[facility]: 01-19-2024 End: 39-24-4125Cidepln encounter xvavncrth86/27/2024 11:30 AM EDT Office Visit [facility] Psych [address] [place] [address] Zoë Garcia MD [address] [place] [address] [facility] Phys[facility] PsychStart: 31-34-6610Qctgbcqltd A1c mufiyaqvnkfW6NWvhtQurrzcLztxv: 12-23-2023 End: 19-15-5024kbjkexyuzk49/31/2024 3:[address] [facility] Physical Therapy [address] [facility] [place] [address] Jim Velez [address] [facility] [place] [address] Mary Wells, PT Discharge Disposition: [facility] Physical TherapyStart: 12-22-2023 End: 33-73-7798Fitbaoa encounter lraowwboq96/30/2024 2:00 PM EDT Office Visit [facility] Urology [address] [facility] [place] Sharla Camara PA-C [address] [facility] [place] [address] [facility] Group UrologyStart: 12-21-2023 End: 55-72-3966Hctkpez encounter /29/2024 2:00 PM EDT Office Visit [facility] Neurology [address] [place] [address] Virgen Campos MD [address] [place] [address] [facility] NeurologyStart: 12-14-2023 End: 84-26-9295Rihucqe encounter pzmijjwwf10/22/2024 10:00 AM EDT Office Visit [facility] Endocrinology [address] [place] [address] Sahara Sanchez MD [address] [place] [address] [facility] EndocrinologyStart: 12-08-2023 End: 36-39-1441Nmpwwec encounter /16/2024 2:00 PM EDT Office Visit [facility] Pain Management [place] [address] [place] [address] Stephany Pelayo PA-C [address] [place] [address] Jim Velez, DO [address] [place] [address] [facility]Start: 12-03-2023 End: 06-29-3752Ecymlkr encounter fibizqjui74/11/2024 2:00 PM EDT Office Visit [facility] Pain Management [place] [address] [place] [address] Jim Velez, DO [address] [place] [address] [facility] Pain Management MarionStart: 12-02-2023 End: 82-21-4429Yepcaau encounter sljugeizw59/10/2024 1:45 PM EDT Office Visit [facility] Endocrinology [address] [place] [address] Stephany Pelayo PA-C [address] [place] [address] Sahara Sanchez MD [address] [place] [address] [facility] EndocrinologyStart: 11-19-2023 End: 38-28-5535Geqrzbj encounter aexvybddx65/27/2024 12:40 PM EDT Office Visit [facility] Primary Care [address] [place] [address] Stephany Pelayo PA-C [address] [place] [address] [facility] Primary CareStart: 11-19-2023 End: 57-33-7521akjcyqgnyk74/27/2024 9:00 AM EDT Evaluation [facility] Ophthalmology [address] [facility], [id number] Stephany Pelayo PA-C [address] [place] [address] Karon Monzon, [address] [place] [address] [facility] OphthalmologyStart: 10-13-2023 End: 69-74-4955Xnsjqln encounter voxbuvydv72/21/2024 11:20 AM EDT Office Visit [facility] Primary Care [address] [place] [address] Stephany Pelayo PA-C [address] [place] [address] [facility] Primary CareStart: 10-08-2023 End: 30-00-2952Odydtht encounter xlpwaquzr97/16/2024 7:00 AM EDT Appointment [facility] EEG [address] [place] [address] Virgen Campos MD [address] [place] [address] [facility] EEGStart: 10-07-2023 End: 24-65-1430Ncbhngr encounter procedureC[facility] Clinic [facility] PsychStart: 98-09-1585Sksrfafn screeningDiabetic Eye ExamOhioHealthComment on above: Postponed from 1987 (Per Other Best Practice Guidelines)Start: 09-16-2023 End: 31-16-6228Mvqszog encounter nfabdeusg97/24/2024 1:00 PM EDT Office Visit [facility] Neurology [address] [place] [address] Virgen Campos MD [address] [place] [address] [facility] NeurologyStart: 09-03-2023 End: 15-27-3898Lmueflw encounter bdsurmlvx60/11/2024 2:00 PM EDT Office Visit [facility] Primary Care [address] [place] [address] Stephany Pelayo PAKandi [address] [place] [address] [facility] Primary CareStart: 08-19-2023 End: 85-65-6870Frqfpur encounter otyzybhen12/27/2024 2:00 PM EDT Office Visit [facility] [facility] Urology [address] [place], [id number] Sharla Camara PA-C [address] [place] [address] [facility] UrologyStart: 02-90-9570Mdcdivoqsr A1c uuzqtqxrbodS7ABlcuEmyyriKoaas: 08-03-2023 End: 52-58-6532Oetswzf encounter pzwqavnuu74/11/2024 2:30 PM EDT Initial consult [facility] Psych [address] [place] [id number] Stephany Pelayo PA-C [address] [place] [address] Zoë Garcia MD [address] [place] [address] [facility] PsychStart: 30-41-7324Lhrezevm foot examinationDiabetic Foot Exam OhioHealthComment on above:Postponed from 1987 (Per Other Best Practice Guidelines)Start: 07-03-2023 End: 62-32-3305ayedjuzvtf58/09/2024 9:00 AM EST Evaluation [facility] Ophthalmology [address] [place], [id number] Stephany Pelayo, PACheC [address] [facility] [address] [place] [address] Karon Monzon DO [address] [place] [address] [facility] OphthalmologyStart: 48-01-0047Vwyibdnshq A1c xbddlpdgosjE2QJveeQlmwezZsehd: 06-29-2023 End: 77-00-9412Vygcnwm encounter hsawfikpd54/05/2024 10:00 AM EST Office Visit [facility] Cardiology [address] [place], [id number] Dakota Edward MD [address] [facility] [address] [facility] CardiologyStart: 06-23-2023 End: 62-85-5085Erbqjce encounter ebhtmlryw15/30/2024 8:15 AM EST Office Visit [facility] Endocrinology [address] [place] [address] Stephany Pelayo PA-C [address] [facility] [address] [place] [address] Sahara Sanchez MD [address] [facility] [place] [address] [facility] EndocrinologyStart: 06-22-2023 End: 07-80-2123qekvjkgpkf83/29/2024 2:30 PM EST Evaluation [facility] Ophthalmology [address] [place], [id number] Karon Monzon DO [address] [place] [address] ( Work) [facility] OphthalmologyStart: 06-22-2023 End: 39-87-3752Rpnkphyo identified in Unspecified specimen by Aerobe culture Urine Aerobic Culture Microbiology Routine Incontinence in female Expected: 06/22/2023 (Approximate), Expires: 06/22/2024OhioHealthComment on above: Expected: 06/22/2023 (Approximate), Expires: 06/22/2024Start: 06-22-2023 End: 09-74-7652FwlohonwbdGypxksmmxr with microscopic Lab Routine Incontinence in female Expected: 06/22/2023 (Approximate), Expires: 06/21/2024[facility] Work Phone: Comment on above:Expected: 06/22/2023 (Approximate), Expires: 06/21/2024Start: 06-11-2023 End: 49-20-2667Plwbfyt encounter tpsickfav83/18/2024 9:00 AM EST Office Visit [facility] Neurology [address] [place] [address] Virgen Campos MD [address] [place] [address] [facility] NeurologyStart: 06-03-2023 End: 76-91-2459Shrxakk encounter /10/2024 11:00 AM EST Office Visit [facility] Cardiology [address] [place], [id number] Stephany Pelayo PA-C [address] [place] [address] Cristy Najera MD [address] [place] [address] [facility] CardiologyStart: 05-28-2023 End: 08-99-7420Kgqk visit05/28/2023 8:00 AM EST Home Care Visit [facility] [address] [place] [address] Sharla Paulino [facility] HealthStart: 05-26-2023 End: 89-80-9104Cidn visit05/26/2023 8:00 AM EST Home Care Visit [place] [address] [place] [address] Sharla Paulino [facility] HealthStart: 78-65-2538Aqvpjvzc screeningDiabetic Eye ExamOhioHealthComment on above:Postponed from 1987 (Per Other Best Practice Guidelines)Start: 05-21-2023 End: 60-62-4861Oxqh visit05/21/2023 8:00 AM EST Home Care Visit [facility] [address] [place] [address] Sharla Paulino [facility] HealthStart: 05-19-2023 End: 52-90-4304Niau visit05/19/2023 8:45 AM EST Home Care Visit [facility] [address] [place] [address] Sharla Paulino [facility] HealthStart: 05-15-2023 End: 71-44-1931Wqkcbyh encounter procedureC[facility] Start: 05-14-2023 End: 19-87-2013Vpmq visit05/14/2023 8:00 AM EST Home Care Visit [place] [address] [place] [address] Sharla Paulino [facility] HealthStart: 05-12-2023 End: 47-40-0466Zzzl visit05/12/2023 8:45 AM EST Home Care Visit [facility] [address] [place] [address] Sharla Paulino [facility] HealthStart: 05-07-2023 End: 53-97-9473Iybeuuc encounter lsocrkpbj58/14/2023 1:00 PM EST Office Visit [facility] Neurology [address] [facility] [address] [place] [address] Virgen Campos MD [address] [facility] [address] [place] [address] [facility] NeurologyStart: 05-07-2023 End: 27-60-5602Xgnq visit05/07/2023 8:00 AM EST Home Care Visit [place] [address] [place] [address] Sharla Paulino [facility] HealthStart: 05-05-2023 End: 40-30-4699Wzzq visit05/05/2023 8:45 AM EST Home Care Visit [place] [address] [place] [address] Sharla Paulino [facility] HealthStart: 04-30-2023 End: 93-90-6349Acpq [facility]Detw[facility] HealthStart: 04-29-2023 End: 34-23-2406Fkwd [facility] HealthStart: 04-28-2023 End: 22-85-5258Xpoy visit04/28/2023 10:15 AM EST Home Care Visit [place] [address] [place] [address] Sharla Paulino [facility] HealthStart: 04-27-2023 End: 75-12-2508Mtgj [facility]Detw[facility] HealthStart: 04-27-2023 End: 95-72-2959Dqeb visit04/27/2023 4:30 AM EST Home Care Visit [place] [address] [place] [address] Carlitos Carrera [facility] HealthStart: 04-24-2023 End: 61-38-6625Yzfc visit04/24/2023 7:30 AM EST Home Care Visit [place] [address] [place] [address] Carlitos Carrera [facility] HealthStart: 04-23-2023 End: 23-18-7584Jepa visit04/23/2023 12:30 PM EST Home Care Visit [place] [address] [place] [address] [facility] HealthStart: 04-23-2023 End: 52-25-1843Zrfy visit04/23/2023 9:15 AM EST Home Care Visit [place] [address] [place] [address] [facility] 04-22-2023 End: 25-41-5191Zgro [facility] HealthStart: 04-21-2023 End: 57-11-4171Pwks visit04/21/2023 3:30 PM EST Home Care Visit [place] [address] [place] [address] Tiny Arias [facility] HealthStart: 04-21-2023 End: 79-47-1731Nfyt visit04/21/2023 12:30 PM EST Home Care Visit [place] [address] [place] [address] [facility] HealthStart: 04-21-2023 End: 34-97-1964Cwkp [facility] Hospital[facility]: 04-20-2023 End: 35-87-8911Nyem [facility]UC [facility] HospitalStart: 04-17-2023 End: 34-22-4520Utkf [facility]UC [facility] HospitalStart: 04-15-2023 End: 99-01-4208Mtmk visitUC [facility] HospitalStart: 09-76-5736Wpgbbwjkpd A1c djbklxkbixmM6OGoghLyixuxXdtvt: 04-14-2023 End: 24-03-1795Ettf visit04/14/2023 12:15 PM EST Home Care Visit [facility] [address] [place] [address] Carolina Boston, [facility]: 04-14-2023 End: 67-68-9037Svfj visit04/14/2023 10:15 AM EST Home Care Visit [place] [address] [place] [address] Sharla Paulino, [facility]Start: 04-13-2023 End: 83-98-7860Bgqp visit04/13/2023 Home Care Visit [place] [address] [place] [address] Tiny Arias PTA [facility]: 04-10-2023 End: 44-79-4790Vyjz visit04/10/2023 5:45 AM EST Home Care Visit [facility] [address] [place] [address] Cece Colin, [facility] Center[facility]: 04-09-2023 End: 43-77-9471Kfov visitUC [facility] HospitalStart: 04-08-2023 End: 41-43-9173Dped visit04/08/2023 11:30 AM EST Home Care Visit [place] [address] [place] [address] Carlitos Carrera, [facility] HealthStart: 04-07-2023 End: 88-75-4247Orov [facility]Detw[facility] HealthStart: 04-03-2023 End: 75-58-0965Hffh visit04/03/2023 11:15 AM EST Home Care Visit [facility] [address] [place] [address] Sharla Paulino, PSAD[facility] HealthStart: 04-03-2023 End: 96-60-6540Mroh visit04/03/2023 8:30 AM EST Home Care Visit [facility] [address] [place] [address] Cece Colin, OTDetw[facility] HealthStart: 04-03-2023 End: 09-62-3561Onge visit04/03/2023 4:30 AM EST Home Care Visit [facility] [address] [place] [address] Karen Prather, PTUC West Chester HospitalStart: 02-09-2023 End: 06-60-4886Afigklg encounter axwufseqs34/18/2023 2:45 PM EDT Office Visit [facility] Orthopedics [address] [place], [id number] Josué Christianson, DO [address] [place] [address] [facility] OrthopedicsStart: 53-46-3298WEXOC-19 VACCINE ( season)COVID-19 VACCINE ()[facility]Start: 14-59-6190RYKJR-19 VACCINE ()COVID-19 VACCINE ( season)[facility] CenterStart: 90-07-5785IKFRW-19 Vaccine ()COVID-19 Vaccine ()OhioHealthStart: 14-97-9769Ltgqhndra vaccinationSequential Influenza Vaccine (#1)[facility]ta: 30-32-9265WwlpefylyMarietta Osteopathic Clinictart: 34-29-9457NE DSA (Angiogram) W/TLA/Stent Left Leg (Left)OR DSA (Angiogram) W/TLA/Stent Left Leg (Left)[facility]: 08-22-2022 [facility]: 37-02-4748Ryehj limb angiographyIR Angiogram Left Leg (Left)[facility]: 08-21-2022 Referral to vascular surgeonMarietta Osteopathic Clinictart: 08-20-2022 Blood culture for bacteria, including anaerobic screenBlood CultureMarietta Osteopathic Clinictart: 22-41-2339Nptbvtdv of Left Foot Skin, External ApproachDrainage of Left Foot Skin, External ApproachMarietta Osteopathic Clinictart: 53-47-3515Vgkanvkc to infectious diseases physicianMarietta Osteopathic Clinictart: 14-25-5986Mhsldgvy admissionMarietta Osteopathic Clinictart: 61-44-2677Cezeunlp to podiatristMarietta Osteopathic Clinictart: 46-45-6673Yrpan chest X-rayXR chest 1V portableMarietta Osteopathic Clinictart: 40-72-2375B-ray of left footXR foot LT min 3V*[facility]art: 98-44-9828HD Chest Single viewMarietta Osteopathic Clinictart: 70-45-1399CE Foot - left GE 3 ViewsMarietta Osteopathic Clinictart: 85-50-1141Xncibydvi for malignant neoplasm of colon [facility] CenterroOhio [facility] Surgical HospitalStart: 63-66-3051Ezelpzydqqti Vaccine: Ped or At-Risk (2 - PCV) Pneumococcal Vaccine: Ped or At-Risk (2 - PCV)[facility] HospitalSt[facility]hatta: 01-23-2022 Influenza vaccinationFlu vaccine (#1)[facility]Start: 04-13-2021 COVID-19 Vaccine (2 - Pfizer series)COVID-19 Vaccine (2 - Pfizer series) [facility] CenterHealthStart: 76-51-1743NRETM-19 Vaccine (3 - Mixed Product series)COVID-19 Vaccine (3 - Mixed Product series)[facility]: 47-66-0419AwR1x (Bld) [Mass fraction]M7LNhpfWqyzspWcdyg: 21-18-1930Joekeplga [Moles/volume] in Serum or PlasmaPOTASSIUMMedina Hospitaltart: 10-02-7020Tenbztxtmx A1c vyivukssgdyOEW4D TESTMedina Hospitaltart: 67-15-9405Cqzhzijbt for malignant neoplasm of breastMetroHealthStart: 10-50-2884Myciaamae vaccination SEQUENTIAL INFLUENZA VACCINE (#1)[facility] Work Phone: Start: 21-22-8358Cqwzb panelLipRiverside Shore Memorial HospitalStart: 93-01-1284MdZ1lUSUABAIXIM B6IJggsLflrlk Work Phone: Start: 75-20-3953Hotlz screening for proteinUrine MicroalbuminNvioHealthStart: 74-75-5234Bojxt, microalbuminURINE MICROALBUMIN [facility] Work Phone: Start: 82-49-1676Ikbkl panelLIPKindred Healthcare CenterStart: 03-65-8990Vwnqb screening for proteinDayton Osteopathic Hospital Start: 01-42-0163Yjcwunfhq for malignant neoplasm of cervixWellmont Lonesome Pine Mt. View Hospitalart: 11-79-1328Spwfjttaj for malignant neoplasm of cervixWellmont Lonesome Pine Mt. View Hospitalart: 90-87-3523OAdY/Tdap/Td vaccine (1 - Tdap)DTaP/Tdap/Td vaccine (1 - Tdap)[facility]OS[facility]ITALStart: 41-60-7659Nofccwatz B vaccinationMedina Hospitaltart: 04-61-1093Xyuci BMI Follow Up PlanAdult BMI Follow Up [facility] SystemStart: 85-82-9430Zhfiqlrnk C antibody, confirmatory testHepatitis C ScreeningOhioHealthStart: 20-24-8395Mbmcbudao C screeningSentara RMH Medical Center: 08-57-5732HEKFF-19 Vaccine (1 of 2) COVID-19 Vaccine (1 of 2)[facility] HospitalStart: 39-40-3588MSL screeningWellmont Lonesome Pine Mt. View Hospitalart: 21-55-7760Omxqynavwu ScreenDepression ScreenBON SAMARITAN HOSPITALStart: 34-58-8398Jqohgiqm foot examination (regime/therapy)[facility] Start: 82-53-2102Phzuivue screeningOhioHealthStart: 25-00-6501Nsadiwlirl examination and evaluationOPHTHALMOLOGY EXAMOhioOhio Valley Surgical Hospital Work Phone: Start: 02-59-8805Hmynz screening for proteinUrine (micro)albumin/creatinine ratio - DiabetesOhioHealthStart: 15-62-6867Fuiocrp and physical examination, annual for health [facility] VisitNvioOhio Valley Surgical Hospital Start: 44-25-5370Fvkomwu-mumps-rubella vaccinationMMR Vaccines (1 of 1 - Standard series)[facility] HospitalStart: 63-75-5692GHGKD-19 Vaccine (#1)COVID-19 Vaccine (#1)[facility]ITALStart: 50-75-7016Czlejwsv foot examinationDIABETIC FOOT EXAMOSU [facility] Hospitaltart: 29-56-4857Mudmolgr screeningEYE EXAMOSU [facility] CenterStart: 01-70-2337Fqvqgucgf C screeningHEPATITIS C VIRUS SCREENINGOSU [facility] Hospitaltart: 76-25-0090Vchsyjnoe for malignant neoplasm of cervixPAP SMEAROhThe Surgical Hospital at Southwoods Work Phone: Start: 51-03-5923Amniljwpg for malignant neoplasm of colonMetroHealthStart: 40-65-4511Wmbhlzzru mammographyMammogramOhioHealthStart: 01-29-4917Qdmrhbt vaccinationSuburban [facility] Work Phone: Start: 29-40-4197Fcpzonj stimulating hormone measurementSamaritan North Health Centertart: 35-62-1412Wkejusv Counseling Tobacco CounselingBrown Memorial HospitalAerobic microbial cultureWound Aerobic Culture Microbiology Routine 06/05/2020 11:32 AM ESTOhioHealthBacteria identified Cx Nom (Bld)Blood Culture Aerobic/Anaerobic Microbiology Routine 06/03/2020 2:39 PM ESTOhioHealthBacteria identified in Blood by Culture [facility] Work Phone: Bacteria identified in Unspecified specimen by Anaerobe cultureOhioHealth End: 15-10-9781Ettap metabolic 2000 panel - Serum or PlasmaBasic Metabolic Panel Lab Routine Primary hypertension 1 Occurrences starting 09/03/2023 until 09/02OhioHealthComment on above:1 Occurrences starting 09/03/2023 until 09/02/2024 End: 19-99-5711Monwl metabolic 2000 panel - Serum or PlasmaBasic Metabolic Panel Lab Routine SOLO (acute kidney injury) (HCC) 1 Occurrences starting 01/27/2024 until 01/26/2025[facility] Work Phone: Comment on above:1 Occurrences starting 01/27/2024 until 01/26/2025 End: 28-85-1658Fbwib typing serologic aboABO RH TYPE Lab STAT One time for 1 Occurrences starting 10/07/2022 until 10/07/2022MetroHealthComment on above:One time for 1 Occurrences starting 10/07/2022 until 10/07/2022 End: 53-16-7740Xyagzjvmfni difficile toxin assayClostridium Difficile Testing Microbiology Routine Diarrhea, unspecified type 1 Occurrences starting 03/22/2024 until 03/22/2025OhioHealthComment on above:1 Occurrences starting 03/22/2024 until 03/22/2025 End: 39-41-5898Ozuwbull blood count with white cell differential, manualCBC and Differential Lab Routine Diarrhea, unspecified type Abdominal cramping 1 Occurrences starting 03/22/2024 until 03/22/2025OhioHealthComment on above:1 Occurrences starting 03/22/2024 until 03/22/2025 End: 82-85-6088Axxpklzf blood count with white cell differential, manualCBC and Differential Lab Routine Primary hypertension 1 Occurrences starting 08/02/2024 until 08/02/2025[facility] Work Phone: Comment on above:1 Occurrences starting 08/02/2024 until 08/02/2025 End: 03-69-3335Bkkepjkjqxsoh metabolic 2000 panel - Serum or PlasmaComprehensive Metabolic Panel Lab Routine RUQ abdominal pain 1 Occurrences starting 10/13/2023 until 10/12/2024OhioHealthComment on above:1 Occurrences starting 10/13/2023 until 10/12/2024 End: 35-91-4617Jebkxocepilsd metabolic 2000 panel - Serum or PlasmaComprehensive Metabolic Panel Lab Routine Diarrhea, unspecified type Abdominal cramping 1 Occurrences starting 03/22/2024 until 03/22/2025OhioHealthComment on above:1 Occurrences starting 03/22/2024 until 03/22/2025 End: 88-65-9138XBA (STANDARD)EEG (Standard) Neurology Routine Seizure ([facility]) 1 Occurrences starting 09/16/2023 until 09/15/2024[employer] Work Phone: Comment on above:1 Occurrences starting 09/16/2023 until 09/15/2024External Lab Urine Drug ScreenExternal Lab Urine Drug Screen Lab Routine Encounter for monitoring opioid maintenance therapy Ordered: 05/13/2024 [facility] Work Phone: Comment on above:Ordered: 05/13/2024 End: 91-52-0253Ktkbwrmutlswquhf pathogens DNA and RNA panel - Stool by EBONIE with non-probe detectionStool/GI PCR Panel Microbiology Routine Diarrhea, unspecified type 1 Occurrences starting 03/22/2024 until 03/22/2025[facility] Work Phone: Comment on above:1 Occurrences starting 03/22/2024 until 03/22/2025 End: 77-96-3268Apdgbjqadg A1c/Hemoglobin.total in BloodHemoglobin A1c Lab Routine Type 2 diabetes mellitus with diabetic polyneuropathy, with long-term current use of insulin ([facility]) 1 Occurrences starting 09/03/2023 until 09/02/2024 [facility] Work Phone: Comment on above:1 Occurrences starting 09/03/2023 until 09/02/2024 End: 09-71-3730WL Breast - bilateral ScreeningMammography Screening [place] Bilateral Imaging Routine Encounter for screening mammogram for malignant neoplasm of breast 1 Occurrences starting 05/06/2023 until 07/07/2024[employer] Work Phone: Comment on above:1 Occurrences starting 05/06/2023 until 07/07/2024 End: 17-53-7979AE Breast - bilateral ScreeningMammography Screening Bilateral Imaging Routine Encounter for screening mammogram for malignant neoplasm of breast 1 Occurrences starting 08/02/2024 until 10/02/2025OhioHealthComment on above:1 Occurrences starting 08/02/2024 until 10/02/2025MG Breast - bilateral ScreeningCorey HospitalMicroalbumin measurement, urine, quantitativeMicroalbumin, Urine, Random Lab Routine Type 2 diabetes mellitus with diabetic polyneuropathy, withlong-term current use of insulin (HCC) Ordered: 12/02/2023[facility] Work Phone: Comment on above:Ordered: 12/02/2023 End: 02-48-1924ZC Knee - right WO contrastMR Knee Right Without Contrast Imaging Routine Chronic pain of right knee 1 Occurrences starting 03/08/2025 until 03/08/2026OhioHealthComment on above:1 Occurrences starting 03/08/2025 until 03/08/2026 End: 05-11-8702JQ Lumbar spine WO contrastMR Lumbar Spine Without Contrast Imaging Routine Back pain with radiculopathy Degeneration of intervertebral disc of lumbar region with discogenic back pain and lower extremity pain 1 Occurrences starting 03/08/2025 until 03/09/2026[facility] Work Phone: comment on above:1 Occurrences starting 03/08/2025 until 03/09/2026Patient EducationMercy Health – The [facility] Work Phone: Patient referralMercy Health – The Jewish Hospital [facility] Work Phone: Procedure on tissue specimenOhioHealth Work Phone: End: 46-27-0024Dycimiziodv timePROTHROMBIN TIME AND INR Lab STAT One time, now for 1 Occurrences starting 10/07/2022 until 10/07/2022MetroHealthComment on above:One time, now for 1 Occurrences starting 10/07/2022 until 10/07/2022 End: 35-47-8325UH Spine epidural space Views W contrast ITTHE [facility] Work Phone: Comment on above:One time, now for 1 Occurrences starting 10/06/2022 until 10/06/2022 End: 31-78-0548Csvru levetiracetam measurementLevetiracetam Level Lab Routine Seizures (HCC) 1 Occurrences starting 03/22/2024 until 03/22/2025[facility] Comment on above:1 Occurrences starting 03/22/2024 until 03/22/2025 End: 77-64-6185Hytwleqfaxssus time partial plasma/whole bloodPARTIAL THROMBOPLASTIN TIME Lab STAT One time, now for 1 Occurrences starting 10/07/2022 until 10/07/2022[employer] Work Phone: Comment on above:One time, now for 1 Occurrences starting 10/07/2022 until 10/07/2022 End: 95-91-4465CFZZOGTCVQ RISK SCREENThrombotic Risk Screen Lab Routine Lacunar stroke (HCC) 1 Occurrences starting 09/16/2023 until 09/15/2024OhioHealthComment on above:1 Occurrences starting 09/16/2023 until 09/15/2024 End: 05-94-3261Yehakymlakk [Units/volume] in Serum or PlasmaTSH with Reflex Free T4 Lab Routine Hypothyroidism, unspecified type 1 Occurrences starting 01/27/20 until 01/26/2025OhioHealthComment on above:1 Occurrences starting 01/27/2024 until 01/26/2025 End: 27-63-0745KC AbdomenUS Abdomen Complete Imaging Routine RUQ abdominal pain 1 Occurrences starting 10/13/2023 until 10/12/2024OhioHealthComment on above:1 Occurrences starting 10/13/2023 until 10/12/2024 End: 11-49-6461Vnsyvpn D, 25-hydroxy measurementVitamin D, Total, 25-OH Lab Routine Vitamin D deficiency 1 Occurrences starting 09/03/2023 until 09/02/2024 OhioHealthComment on above:1 Occurrences starting 09/03/2023 until 09/02/2024 End: 15-18-4541TN Chest PA and Lateral and AP lateral-decubitusXR Chest AP/PA and LAT Imaging Routine Subacute cough 1 Occurrences starting 10/13/2023 until 10/12/2024[facility] Work Phone: Comment on above:1 Occurrences starting 10/13/2023 until 10/12/2024 End: 33-12-7448ZT Chest PA and Lateral and AP lateral-decubitusXR Chest AP/PA and LAT Imaging Routine Pleuritic chest pain 1 Occurrences starting 02/11/2024 until02/10/2025[facility] Work Phone: Comment on above:1 Occurrences starting 02/11/2024 until 02/10/2025 End: 62-58-0407XM Foot - right 3 ViewsXR Foot Right 3+ Views (Standard) Imaging Routine Right foot ulcer, with fat layer exposed (HCC) 1 Occurrences starting 09/22/2023 until 09/21/2024[facility] Work Phone: comment on above:1 Occurrences starting 09/22/2023 until 09/21/2024 End: 34-36-5168SK Hand - left 3 ViewsXR Hand Left 3+ Views (Standard) Imaging Routine Left hand pain 1 Occurrences starting 02/23/2025 until 02/23/2026 OhioHealthComment on above:1 Occurrences starting 02/23/2025 until 02/23/2026 End: 09-93-9594SX Knee - bilateral 2 ViewsXR Knees Bilateral 2 Views Each (Standard) Imaging Routine Chronic pain of both knees 1 Occurrencesstarting 03/22/2024 until 03/22/2025OhioHealthComment on above:1 Occurrences starting 03/22/2024 until 03/22/2025 End: 26-76-4212ZK Knee - bilateral 4 ViewsXR Knees Bilateral 4+ Views Each (Specify Views in Comments) Imaging Routine Pain in both knees, unspecified chronicity 1 Occurrences starting 08/18/2024 until 08/18/2025[facility] Work Phone: Comment on above:1 Occurrences starting 08/18/2024 until 08/18/2025 End: 32-61-4682GJ Knee Right 4+VWS (Note in Comments)XR Knee Right 4+VWS (Note in Comments) Imaging Routine Right knee pain, unspecified chronicity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 xjjdyv-dp-tvhftrsg neural foraminal stenosis at a few levels [...] disc bulge with mild canal stenosis and oisj-hv-lkmuiduz bilateral neural foraminal stenosis. IMPRESSION: 1. No [...] times a day Order power scooter from [employer] Complete urine drug screen Please call Refill Line or send [employer]hart Refill Request to Pain Management office 7 [...] OPIOIDS Mihai Elizalde CNP Interventional Pain Management [facility] [1] Social History Tobacco Use [...] last use thursday night documented in this [id number] Evaluation note* Diagnosis Onset Date Resolution Status [...] with long-term currentacute April 04, 2025 10:44am [facility] Work Phone: [phone] 993-466709-11-2025 History of Present illness Narrative* Sergio Resendez [...] times daily PRN Blood Glucose Monitoring Suppl (Think Through Learning[employer] Verio Flex System) w/Device kit No dose, route, or frequency recorded. chlorthalidone (Hygroton) 25 MG tablet Continuous Glucose Sensor (Dexcom G6 Sensor) misc USE DIRECTED FOR CONTINUOUS GLUCOSE MONITORING, CHANGE EVERY 10 DAYS Continuous Glucose Sensor (Dexcom G7 Sensor) misc 1 Bar, Does not apply, Every 10 days Emgality 120 MG/ML auto-injector ergocalciferol (Vitamin D2) 1.25 MG (87188 UT) capsule 1 capsule, Weekly Florastor 250 [...] adjustment of insulin pump Heart disease Hypertension intermediate card tender (current) use of insulin (HCC) Obesity, unspecified [...] index (BMI) of45.0 to 49.9 in adult ([facility]) Hyperlipemia, mixed Vitamin D deficiency Primary hypertension Encounter for fitting or adjustment of insulin pump Follow up in about 3 months (around 05/04/2025). documented in this encounterSamaritan [id number] Telephone encounter Note* Telephone Encounter - Olivia Almonte - 12/22/2024 8:27 AM EDT Attempted to inform pt that meds were sent to [facility] full [id number] Miscellaneous Notes* Telephone Encounter - Olivia Almonte [...] rs to 01/05/25 * Telephone Encounter - Olviia Almonte - 12/19/2024 9:34 AM EDT Shon 09/23/24 documented in this [id number] Telephone encounter Note* Telephone Encounter - Olivia Almonte - 12/20/2024 4:31 PM EDT Pt had to cancel appt for tomorrow through her insurance and they told her there was nobody in the area that could do it. Asking to pleAse resfill her Rx. Pt rs to 01/05/25 [id number] Telephone encounter Note* Telephone Encounter - Olivia Almonte - 12/19/2024 9:34 AM EDT Shon 09/23/24 [id number] Miscellaneous Notes* Telephone Encounter - Addie Chavira MA - 12/06/2024 9:51 AM EDT [facility]ICATION [facility]NAGEMENT [address] [facility] [address] New referral received by [facility] for adherence & access, diabetes, and weight management. Patient was contacted to schedule appointment at [facility] Medication [facility] ([facility]). This was my first attempt [...] provider: Elda Aguirre MD documented in this encounterBrown Memorial Hospital07-15-2025 Telephone encounter Note* Telephone Encounter - Addie Chavira MA - 12/06/2024 9:51 AM EDT [facility] MEDICATION MANAGEMENT [address] [facility] [address] New referral received by [facility] Medication [facility] for adherence & access, diabetes, and weight management. Patient was contacted to schedule appointment at [facility] Medication [facility] ([facility]). This was my first attempt [...] to spreadsheet. Referring provider: Elda Aguirre MD [facility]07-14-2025 Progress note* Discharge Planning Note - Rick Thomas - 12/05/2024 3:28 PM EDT DISCHARGE PLANNING NOTE CRF/Med Rec sent to. [address] (P# ; F# ); [place] (P# [phone] ; F# [phone]) [facility]07-14-2025 Miscellaneous Notes* Discharge Planning Note - Rick Thomas - 12/05/2024 3:28 PM EDT DISCHARGE PLANNING NOTE CRF/Med Rec sent to. [address] (P# ; F# ); [place] (P# [phone] ; F# [phone]) * Discharge Planning Note - Jaky Sauceda - 12/05/2024 12:14 PM EDT DISCHARGE PLANNING NOTE Referral to [facility]- P# ; F# , [address] (P# ; F# ) , [facility] - [facility] (P# ; F# ) * PT/OT/PLUGGER - Jesús Singh, PT - 12/05/2024 12:01 [...] brain (-); Blood sugar 640- transferred to [facility] Neuro- MRI brain; B vision loss likely 2/2 hyperglycemic refraction error H- bipolar Dx- diabetic retinopathy, mild-moderate diabetic macular edema R eye Past Medical History: Diagnosis Date Arrhythmia Arthritis Bipolar disorder ([facility]) Bronchitis, chronic ([facility]) Chronic constipation Chronic kidney disease Depression Diabetes mellitus type 2, controlled ([facility]) 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 Meningitis Sudden [...] 6 Clicks: Basic Mobility Raw Score: 14 [facility] G Code Modifier: CK PT Treatment/Interventions: Functional [...] eval Equipment: RW, gait belt, ex cath Telemetry/Keyboarding Clerk: Yes Oxygen Used: room air Other: (S) [...] Patient will perform bed mobility with Modified Mission Dates: Start: 12/05/24 Expected End: 12/22/24 Description: [...] vision Active Problems: Hyperosmolar hyperglycemic state (HHS) ([facility]) SOLO (acute kidney injury) HHS (hypothenar hammer [...] care CN tasked to send referrals to [address] and [facility] home care. Patient stated she lives on the first floor of her daughter's home off the dining room and her son lives in the basement. [employer] will continue to follow for any discharge needs. - Crista Leung RN 12/05/24 11:52 AM Addendum: PT/OT rec SNF. CN met with patient and discussed therapy recommendation. Patient stated NO to SNF option. [address] is possibly accepting for home care. Waiting on final decision from [address] Patient insists she lives on the first floor and her son is the one who lives In the basement bedroom. CN tried to call daughter. - Crista Leung RN 12/05/24 1:04 PM Blood sugars have stablized and patient will be discharged today.. CN met with patient to discuss that [address] home care could accept referral and patient stated she will have to Call Medicaid provider for transport. CN stayed to verify with Medicaid transport provider that the patient is discharging from [facility] going home, cab transport arranged for 4pm at [facility] A. Nurse and attending physician notified . DC CRF completed and [facility] tasked to send DC orders to [address] Home care. - Crista Leung RN 12/05/24 3:35 PM * PT/OT/PLUGGER - Tamiko JuarezforeignSOBEIDAR/Thuy - 12/05/2024 11:41 AM [...] None Scoring Daily Activity Raw Score: 16 [facility] G Code Modifier: CK Therapy Plan Need for skilled Occupational Therapy to address deficits in ADL independence and functional mobility due to a status decline resulting from B vision loss Pt admitted 12/02 from OSH with sudden onset vision loss B eyes. EMS witnessed seizure x5 seconds CT brain (-); Blood sugar 640- transferred to [facility] Neuro- MRI brain; B vision loss likely 2/2 hyperglycemic refraction error PMH- bipolar Dx- diabetic retinopathy, mild-moderate diabetic macular edema R eye Past Medical History: Diagnosis Date Arrhythmia Arthritis Bipolar disorder (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 Encourage patient or legal outbound call center representative to report early pain and ask [...] per policy 9. Teach patient or legal outbound call center representative interventions for comforting Outcome: Progressing Note: [...] at the bedside 7. Instruct patient/ patient outbound call center representative about use of safety devices 8. Include patient/ patient outbound call center representative in decisions related to safety Outcome: [...] be free from fall Description: Interventions: 1. Douglas to environment 2. Hourly rounds addressing the [...] non-skid footwear 11. Teach patient and patient outbound call center representative to maintain environment for safety and [...] (cane, walker) within reach 19. Request patient outbound call center representative bring adaptive equipment/mobility aids from home or obtain and provide as needed 20. Consult pharmacy regarding effects of med's affecting mobility, cognition, and alternatives 21. Obtain physician order for PT if risk factors associated with mobility are present 22. Obtain physician order for OT as appropriate 23. Utilize diversional activities 24. Educate patient and patient outbound call center representative how to maintain a safe environment during visitationtimes (notify nurse prior to leaving bedside) 25. Consider appropriateness of medical or non-medical lab director 26. Set up voiding schedule as appropriate (every 2 hours) Outcome: Progressing Note: Evaluation of progress towards goal: Bed locked and lowered to lowest setting. Call greco within reach, personal items within reach. Problem: Pain Goal: Patient goal is pain score less than 4, able to rest, and participant in treatment plan as appropriate Description: INTERVENTIONS: 1. Encourage patient or legal outbound call center representative to report early pain and ask [...] per policy 9. Teach patient or legal outbound call center representative interventions for comforting Outcome: Progressing Note: [...] at the bedside 7. Instruct patient/ patient outbound call center representative about use of safety devices 8. Include patient/ patient outbound call center representative in decisions related to safety Outcome: [...] hygiene technique. 7. Identify and instruct patient/patient outbound call center representative in use of appropriate isolation precautionsfor identified infection/symptoms. 8. Provide and discuss with patient/patient outbound call center representative on educational MDRO sheet. 9. Encourage and monitor nutritional status daily and consult community education coordinator if indicated. 10. Implement neutropenic guidelines as needed. Outcome: Progressing Note: Evaluation of progress towards goal: Patient has no current signs and symptoms of infection; monitoring vitals and labs Problem: Knowledge Deficit Goal: Patient/patient outbound call center representative demonstrates understanding of disease process, treatment [...] 9:45 AM) New Patient with Lindsay Johnson, INSPECTOR GOLF BALL-CLINICAL DOCUMENTATION SPECIALIST [facility] ([facility]) [address] [place] [address] [address] [facility] [address] * Discharge Planning Note - [...] Provided Yes CarePort List Provided Home Care Security System Installer met with patient, introduced self, and explained role. Patient educated on safe discharge plan. 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 Discharge plan home with [facility]. PCP: No primary care provider on file. Pharmacy:[facility] PCP and pharmacy confirmed with patient. CN offered to assist with follow up appointment arrangements; patient agreeable, tasked appointment to [facility]. No primary care provider on file. added to Follow Up Providers for Summary of Care communication. Per patient self-report: Drug use: denies Smokinppd ETOH Use: denies Current discharge plan is: Home with daughter support and home care services. [facility] Tasked [facility] to assist with [...] of progress towards goal: safe discharge to [facility] with Home Care and daughter, [...] discharge planning process 5. Communicate referral to community nutrition educator as appropriate 6. Communicate referral to community education coordinator as appropriate 7. Collaborate with case management/psychiatric social worker for discharge needs Outcome: Progressing [...] discharge planning process 5. Communicate referral to community nutrition educator as appropriate 6. Communicate referral to community education coordinator as appropriate 7. Collaborate with case management/psychiatric social worker for discharge needs Note: Evaluation of progress towards goal: pt request to meet vp digital marketing social media and crm documented in this encounterBrown Memorial Hospital07-14-2025 Hospital course Narrative* Elda Aguirre MD - 12/05/2024 2:58 PM EDT Images from the original note were not included. [facility] Medicine Discharge Summary Patient Name: Addie Jean Baptiste : 1975 PCP: No primary care provider on file. DATE OF ADMISSION: 12/02/2024 DATE OF DISCHARGE: 12/05/2024 PRIMARY DISCHARGE DIAGNOSIS: Acute onset bilateral vision loss secondary to hyperglycemia SECONDARY DISCHARGE DIAGNOSIS: Uncontrolled type 2 diabetes mellitus Hyperglycemia in setting of above Diabetic retinopathy Ipol-bu-cgwzhfhy diabetic macular edema right eye Seizure-like episode [...] should follow up closely with her outpatient prosthetic dentist and neurologist. Patient was evaluated by PTOT recommended fci facility, patient refusing at this time. Therefore [...] Follow-ups to Schedule [facility] [place] [place] Disease States/Services: Diabetes Adherence & Access [...] Independ wkstn Result Date: 10/02/2024 1 1 [facility] Station [address] [place] [address] [phone] (fax) Echocardiogram-[facility] Name: ADDIE ORGAN Study Date: 10/01/2024 03:03 PM B/P: 127 mmHg/111 mmHg HR: Date of : 1975 Location: [facility] Height: 62 in. Age: 49 year(s) Patient [...] versus fat pad. Procedure Staff Reading Group: [facility] Lmft: Varsha Hyde RDCS Ordering Physician: JUAN C [...] Your Medications These medications were sent to [facility]/pharmacy #[id number] - [place], [place] - [address] [facility] [address] [address] insulin glargine 100 unit/mL injection insulin lispro 100 unit/mL insulin pen pen needle, diabetic 32 gauge x 5/32 needle 37 minutes were spent on discharging this patient. Elda Aguirre MD documented in this encounterBrown Memorial Hospital07-14-2025 Hospital Discharge instructions* Discharge Instructions* Elda Aguirre [...] Ophthalmology. Please follow up with her outpatient prosthetic dentist Please follow your medication reconciliation carefully for new medications, changes in doses or medications that were stopped. If new medications are prescribed at discharge you can find further information about these medications in your discharge paperwork. * Appointments* Rick Thomas - 12/04/2024 3:50 PM EDT YOUR SCHEDULED APPOINTMENTS Dec 07, 2024 10:00 AM (Arrive by 9:45 AM) New Patient with Lindsay Johnson APRN-BEATRIZ [facility] ([facility]) [address] [place] [address] [address] [facility] [phone] Pt. should bring the following [...] For NEW patients, MD will not prescribe intermediate card tender pain medication. * Attachments The following attachments cannot be sent through Care Everywhere. * Checking your blood sugar at home ([place]) * Insulin Lispro, ADULT ([place]) * Insulin Glargine, ADULT ([place]) * Aspirin, ADULT ([place]) * Atorvastatin, ADULT ([place]) * Metformin, ADULT ([place]) * Levetiracetam, ADULT ([place]) documented in this encounterBrown Memorial Hospital07-14-2025 Progress note* Discharge Planning Note - Jaky Sauceda - 12/05/2024 12:14 PM EDT DISCHARGE PLANNING NOTE Referral to [facility]- P# ; F# , [address] [facility] [place] (P# ; F# ) , [facility] (P# ; F# ) [facility]07-14-2025 Progress note* PT/OT/PLUGGER - Jesús Singh, PT - 12/05/2024 12:01 [...] brain (-); Blood sugar 640- transferred to [facility] Neuro- MRI brain; B vision loss likely 2/2 hyperglycemic refraction error H- bipolar Dx- diabetic retinopathy, mild-moderate diabetic macular edema R eye Past Medical History: Diagnosis Date Arrhythmia Arthritis Bipolar disorder ([facility]) Bronchitis, chronic ([facility]) Chronic constipation Chronic kidney disease Depression Diabetes mellitus type 2, controlled ([facility]) 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) SOLO (acute kidney injury) HHS (hypothenar hammer syndrome) [facility] [id number] Progress note* Discharge Planning Note - Crista [...] care [facility] tasked to send referrals to [address] and [facility] home care. Patient stated she lives on the first floor of her daughter's home off the dining room and her son lives in the basement. [employer] will continue to follow for any discharge needs. - Crista Leung RN 12/05/24 11:52 AM Addendum: PT/OT rec SNF. CN met with patient and discussed therapy recommendation. Patient stated NO to SNF option. [address] is possibly accepting for home care. Waiting on final decision from [address] Patient insists she lives on the first floor and her son is the one who lives In the basement bedroom. CN tried to call daughter. - Crista Leung RN 12/05/24 1:04 PM Blood sugars have stablized and patient will be discharged today.. CN met with patient to discuss that [address] home care could accept referral and patient stated she will have to Call Medicaid provider for transport. CN stayed to verify with Medicaid transport provider that the patient is discharging from [facility] going home, cab transport arranged for 4pm at [facility] A. Nurse and attending physician notified . DC CRF completed and [facility] tasked to send DC orders to [address] - Crista Leung RN 12/05/24 3:35 PM [facility] [id number] Progress note* PT/OT/PLUGGER - Tamiko Hoover OTR/Thuy - 12/05/2024 11:41 [...] brain (-); Blood sugar 640- transferred to [facility] Neuro- MRI brain; B vision loss likely 2/2 hyperglycemic refraction error PMH- bipolar Dx- diabetic retinopathy, mild-moderate diabetic macular edema R eye Past Medical History: Diagnosis Date Arrhythmia Arthritis Bipolar disorder ([facility]) Bronchitis, chronic ([facility]) Chronic constipation Chronic kidney disease Depression Diabetes mellitus type 2, controlled (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 Encourage patient or legal outbound call center representative to report early pain and ask [...] per policy 9. Teach patient or legal outbound call center representative interventions for comforting Outcome: Progressing Note: [...] at the bedside 7. Instruct patient/ patient outbound call center representative about use of safety devices 8. Include patient/ patient outbound call center representative in decisions related to safety Outcome: Progressing Note: Evaluation of progress towards goal: Patient remains injury-free amid hospitalization due to proper safety precautions. Rafael Chavira RN [facility]07-14-2025 Plan of care note* Plan of Care [...] =/> 25 or indicated by [facility] Rehab Assessment Goal: Patient should be free from fall Description: Interventions: 1. Douglas to environment 2. Hourly rounds addressing the [...] non-skid footwear 11. Teach patient and patient outbound call center representative to maintain environment for safety and [...] (cane, walker) within reach 19. Request patient outbound call center representative bring adaptive equipment/mobility aids from home or obtain and provide as needed 20. Consult pharmacy regarding effects of med's affecting mobility, cognition, and alternatives 21. Obtain physician order for PT if risk factors associated with mobility are present 22. Obtain physician order for OT as appropriate 23. Utilize diversional activities 24. Educate patient and patient outbound call center representative how to maintain a safe environment during visitationtimes (notify nurse prior to leaving bedside) 25. Consider appropriateness of medical or non-medical lab director 26. Set up voiding schedule as appropriate (every 2 hours) Outcome: Progressing Note: Evaluation of progress towards goal: Bed locked and lowered to lowest setting. Call greco within reach, personal items within reach. Problem: Pain Goal: Patient goal is pain score less than 4, able to rest, and participant in treatment plan as appropriate Description: INTERVENTIONS: 1. Encourage patient or legal outbound call center representative to report early pain and ask [...] per policy 9. Teach patient or legal outbound call center representative interventions for comforting Outcome: Progressing Note: [...] at the bedside 7. Instruct patient/ patient outbound call center representative about use of safety devices 8. Include patient/ patient outbound call center representative in decisions related to safety Outcome: [...] hygiene technique. 7. Identify and instruct patient/patient outbound call center representative in use of appropriate isolation precautionsfor identified infection/symptoms. 8. Provide and discuss with patient/patient outbound call center representative on educational MDRO sheet. 9. Encourage and monitor nutritional status daily and consult community education coordinator if indicated. 10. Implement neutropenic guidelines as needed. Outcome: Progressing Note: Evaluation of progress towards goal: Patient has no current signs and symptoms of infection; monitoring vitals and labs Problem: Knowledge Deficit Goal: Patient/patient outbound call center representative demonstrates understanding of disease process, treatment plan,medications, and discharge instructions Description: INTERVENTIONS 1. Complete learning assessment and assess knowledge base 2. Provide teaching at level of understanding 3. Provide teaching via preferred learning method(s) Outcome: Progressing Note: Evaluation of progress towards goal: Patient verbalizes understanding of treatment plan, medications, and discharge plans. [facility]07-13-2025 Progress note* Discharge Planning Note - iRck Thomas - 12/04/2024 3:50 PM EDT DISCHARGE PLANNING NOTE Dec 07, 2024 10:00 AM (Arrive by 9:45 AM) New Patient with Lindsay Johnson APRN-BEATRIZ [facility] ([place] [address]) [address] [place] [id number] [facility]07-13-2025 History of Present illness Narrative* Elda Aguirre MD - 12/04/2024 2:49 PM EDT Images from the original note were not included. [facility] Hospital[facility] Progress Note [...] vision loss secondary to hyperglycemia Diabetic retinopathy Qhcx-ar-aemvycif diabetic macular edema right eye Seizure-like episode [...] tbd Elda Aguirre MD documented in this encounterBrown Memorial Hospital07-[facility] Progress note* Discharge Planning Note - Ezra [...] Provided Yes [employer] List Provided Home Care Security System Installer met with patient, introduced self, and explained role. Patient educated on safe discharge plan. 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 Discharge plan home with [facility]. PCP: No primary care provider on file. Pharmacy:[facility] PCP and pharmacy confirmed with patient. CN offered to assist with follow up appointment arrangements; patient agreeable, tasked appointment to [facility]. No primary care provider on file. added to Follow Up Providers for Summary of Care communication. Per patient self-report: Drug use: denies Smokinppd ETOH Use: denies Current discharge plan is: Home with daughter support and home care services. [facility] Tasked [facility] to assist with [...] of progress towards goal: safe discharge to [facility] with Home Care and daughter, friend support Will continue to follow as plan of care develops. CN discussed benefits and importance of medication compliance and follow ups. Please feel free to reach out for any discharge planning questions. - Ezra Will RN 12/04/24 12:42 PM [employer]07-13-2025 Plan of care note* Plan of Care [...] s/s coverageblood glucose improved but still elevated [facility]07-13-2025 Plan of care note* Plan of Care [...] discharge planning process 5. Communicate referral to community nutrition educator as appropriate 6. Communicate referral to community education coordinator as appropriate 7. Collaborate with case management/psychiatric social worker for discharge needs Outcome: Progressing Note: Evaluation of progress towards goal: [facility]07-12-2025 Progress note* Situational Awareness - Lianne Mccormick MD - 12/03/2024 1:39 PM EDT [facility] Transfer Accept Note I have received a request for transfer of primary service for this patient from the neurology team.Clinical handoff report was given. [facility] will assume care as primary team of this patient starting 12/04/24 at 7:00 am. LIANNE MCCORMICK MD 12/03/2024 [facility]07-12-2025 Consult note* Esvin Ibrahim MD - 12/03/2024 [...] using 2.5% Anibal-Synephrine and 1% Mydriacyl OU [place] sharp margins OU Cup/Disc Ratio 0.3 [...] with additional background diabetic retinopathy and possible uhgc-uq-qwxdazst diabetic macular edema. The patient's profound visual complaints most likely was secondary to hyperglycemic refractive error. With control of the patient's diabetes vision is suspected to returned to baseline level in 2-4 weeks. The vision has been advised to follow-up with retina specialist Dr. Jonas Casey at [facility] and also to see regular engineering professionals for refractive care.. Thanks Esvin Ibrahim MD, FACS. [facility] [id number] Consult note* Esvin Ibrahim MD - 12/03/2024 [...] using 2.5% Anibal-Synephrine and 1% Mydriacyl OU [place] sharp margins OU Cup/Disc Ratio 0.3 [...] with additional background diabetic retinopathy and possible putg-bg-sapsqpht diabetic macular edema. The patient's profound visual complaints most likely was secondary to hyperglycemic refractive error. With control of the patient's diabetes vision is suspected to returned to baseline level in 2-4 weeks. The vision has been advised to follow-up with retina specialist Dr. Jonas Casey at [facility] and also to see regular engineering professionals for refractive care.. Thanks Esvin Ibrahim MD, FACS. * Lianne Mccormick MD - 12/03/2024 8:45 AM EDTAssociated Order(s): IP CONSULT TO INTERNAL MEDICINE Images from the original note were not included. [facility] Consultation 12/03/2024 [...] History: Diagnosis Date Arrhythmia Arthritis Bipolar disorder ([facility]) Bronchitis, chronic ([facility]) Chronic constipation Chronic kidney disease Depression Diabetes mellitus type 2, controlled ([facility]) Meningitis Sudden loss of vision 12/02/2024 Past [...] Intake/Output Summary (Last 24 hours) at 12/03/2024 0927 Last data filed at 12/03/2024 0831 Gross [...] am to 7 pm documented in this encounterBrown Memorial Hospital07-[facility]-2025 Plan of care note * Plan of [...] discharge planning process 5. Communicate referral to community nutrition educator as appropriate 6. Communicate referral to community education coordinator as appropriate 7. Collaborate with case management/psychiatric social worker for discharge needs Note: Evaluation of progress towards goal: pt request to meet vp digital marketing social media and crm [employer] [id number] Consult note* Lianne Mccormick MD - 12/03/2024 8:45 AM EDTAssociated Order(s): IP CONSULT TO INTERNAL MEDICINE Images from the original note were not included. [facility] Hospitalists Consultation 12/03/2024 Patient Name: [...] History: Diagnosis Date Arrhythmia Arthritis Bipolar disorder ([facility]) Bronchitis, chronic ([facility]) Chronic constipation Chronic kidney disease Depression Diabetes mellitus type 2, controlled ([facility]) Meningitis Sudden loss of vision 12/02/2024 Past [...] Intake/Output Summary (Last 24 hours) at 12/03/2024 0921 Last data filed at 12/03/2024 0831 Gross [...] She is interested in following up with [facility]. If she is able to bring [...] Available from 7 am to 7 pm [facility] [id number] History and physical note* Hanna Mari MD - 12/03/2024 12:26 AM EDT Images from the original note were not included. [facility] Neurology General Neurology Primary Admission Note Primary Neurology service: [phone] Chief Complaint: Vision loss History: Addie Jean [...] at [facility]. Patient was[facility] for further management. Upon arrival to [facility], patient notes that her vision is [...] History: Diagnosis Date Arrhythmia Arthritis Bipolar disorder ([facility]) Bronchitis, chronic ([facility]) Chronic constipation Chronic kidney disease Depression Diabetes mellitus type 2, controlled ([facility]) Meningitis Family History: No family history on [...] Strain: Low Risk (10/01/2024) Received from [facility] Overall Financial Resource Strain (CARDIA) Difficulty of Paying Living Expenses: Not hard at all Food Insecurity: No Food Insecurity (10/01/2024) Received from [facility] Hunger Vital Sign Within the past 12 months, you worried that your food would run out before you got the money to buymore.: Never true Ran Out of Food in the Last Year: Not on file Transportation Needs: No Transportation Needs (10/01/2024) Received from [facility] Transportation In the past 12 months, has lack of transportation kept you from medical appointments or from getting medications?: No Lack of Transportation (Non-Medical): Not on file Physical Activity: Not on file Stress: Not on file Social Connections: Not on file Interpersonal Safety: Unknown (10/01/2024) Received from [facility] Humiliation, Afraid, Rape, and Kick questionnaire Fear of Current or Ex-Partner: No Emotionally Abused: Not on file Physically Abused: Not on file Sexually Abused: Not on file Housing Instability: Low Risk (10/01/2024) Received from [facility] Housing Stability Vital Sign In the last 12 months, was there a time when you were not able to pay the mortgage or rent on time?: No Number of Times Moved in the Last Year: Not on file At any time in the past 12 months, were you homeless or living in a fdc (including now)?: No Medications: None Allergies: Allergies [...] light touch throughout. Cerebellar: Able to do nprvmu-ll-qrrm bilaterally; normal coordination Gait and station: Deferred [...] BMP. Hanna Mari MD PGY3 Neurology [facility] Staffed with: (Dr Vargas) This patient is being followed by the Neurology Resident service. Contact attending directly during these hours: Thursday to 7:30-8:30 A.M. to Thursday 12-1:00 p.m. Primary Neurology service: [phone] Consult neurology service: [phone] Resident Stroke Service: [phone] If the patient belongs to the Stroke FRIDA service please contact the Stroke FRIDA directly. Cosigned by Vanessa Vargas MD at 12/03/2024 6:02 PM EDT Associated attestation - Vanessa Vargas MD - 12/03/2024 6:02 PM EDT I reviewed the resident's note and discussed the case with the resident. This specific service willnot be billed. Additional findings/notes: case was discussed over the phone [employer] Work Phone: [phone] 625-111607-12-2025 History and physical note* Hanna Mari MD - 12/03/2024 12:26 AM EDT Images from the original note were not included. [facility] Neurology General Neurology Primary Admission Note Primary Neurology service: [phone] Chief Complaint: Vision loss History: Addie Jean [...] at [facility]. Patient wastransferred to [facility] for further management. Upon arrival to [facility], patient notes that her vision is [...] History: Diagnosis Date Arrhythmia Arthritis Bipolar disorder ([facility]) Bronchitis, chronic ([facility]) Chronic constipation Chronic kidney disease Depression Diabetes mellitus type 2, controlled ([facility]) Meningitis Family History: No family history [...] Strain: Low Risk (10/01/2024) Received from [facility] Overall Financial Resource Strain (CARDIA) Difficulty of Paying Living Expenses: Not hard at all Food Insecurity: No Food Insecurity (10/01/2024) Received from [facility] Hunger Vital Sign Within the past 12 months, you worried that your food would run out before you got the money to buymore.: Never true Ran Out of Food in the Last Year: Not on file Transportation Needs: No Transportation Needs (10/01/2024) Received from [facility] Transportation In the past 12 months, has lack of transportation kept you from medical appointments or from getting medications?: No Lack of Transportation (Non-Medical): Not on file Physical Activity: Not on file Stress: Not on file Social Connections: Not on file Interpersonal Safety: Unknown (10/01/2024) Received from [facility] Humiliation, Afraid, Rape, and Kick questionnaire Fear of Current or Ex-Partner: No Emotionally Abused: Not on file Physically Abused: Not on file Sexually Abused: Not on file Housing Instability: Low Risk (10/01/2024) Received from [facility] Housing Stability Vital Sign In the last 12 months, was there a time when you were not able to pay the mortgage or rent on time?: No Number of Times Moved in the Last Year: Not on file At any time in the past 12 months, were you homeless or living in a fdc (including now)?: No Medications: None Allergies: Allergies [...] light touch throughout. Cerebellar: Able to do skwsrd-bl-ywpi bilaterally; normal coordination Gait and station: Deferred [...] BMP. Hanna Mari MD PGY3 Neurology [facility] Staffed with: (Dr Vargas) This patient is being followed by the Neurology Resident service. Contact attending directly during these hours: Thursday to 7:30-8:30 A.M. to Thursday 12-1:00 p.m. Primary Neurology service: [phone] Consult neurology service: [phone] Resident Stroke Service: [phone] If the patient belongs to the Stroke [...] discussed over the phone documented in this encounterBrown Memorial Hospital06-[facility]-2025 Telephone encounter Note* Telephone Encounter - Olivia Almonte - 11/21/2024 1:45 PM EDT Shon 10/24/24 [id number] Miscellaneous Notes* Telephone Encounter - Olivia Almonte - 11/21/2024 1:45 PM EDT Shon 10/24/24 documented in this [id number] History of Present illness Narrative* Jessica Romeo PA-C - 11/04/2024 9:00 AM EDT Opened for pre-charting. Patient not seen today, no show. documented in [facility]Day[facility] Telephone encounter Note* Telephone Encounter - Moo Louise RN - 10/11/2024 3:49 PM EDT Pt informed of rx sent. Pharmacy updated to verify new rx and verbalized understanding. Will fill for pt today. [id number] Miscellaneous Notes* Telephone Encounter - Moo Louise [...] a prior auth for [place] in [place]. [place] where [place] now. pt will call back with information of faclity. * Telephone Encounter - Olivia Almonte - 10/06/2024 4:05 PM EDT Shon 09/23/24 documented in this [id number] Telephone encounter Note* Telephone Encounter - Moo Louise RN - 10/10/2024 4:39 PM EDT Patient was given 14 day supply on 09/23/24 pending UDS results (in media, consistent) so she would have been due to fill on 10/07/24. This RX is written to be filled on 10/23/24, ALSO - it is also only written for 14 day supply. Pleasecorrect and resend. [id number] Telephone encounter Note* Telephone Encounter - Olivia Almonte - 10/06/2024 4:09 PM EDT Pt is asking for a prior auth for water therapy in [place]. This is where pt lives now. pt will call back with information of faclity. [id number] Telephone encounter Note* Telephone Encounter - Olivia Almonte - 10/06/2024 4:05 PM EDT Shon 09/23/24 [id number] NoteSW notified that patient is ready for discharge. Dtr cannot transport her home. Pt called [employer] transportation line and speaker call made to schedule transport home. Address corrected in [facility] system to [facility]. Updates sent to [facility] providers to seek out accepting provider with new home address. Awaiting accepting provider. SW added information to AVS that we will call patient once we receive responses from [facility]. 5pm. Patient missed [facility]. She tried to reach out to insurance again but placed on hold. telephone information supervisor agreed to call CAB for patient to get her home. 10/06/24 SW has not rec'd any accepting [facility] out of 22 referrals. SW attempted to call patient -VM was full unable to leave a message. SW attempted to call dtr-no answer. No home health has been located for this patient.[facility]05-14-2025 NotePhysical Therapy Physical Therapy Treatment Patient Name: Addie Jean Baptiste : 1975 Today's Date: 10/05/2024 Patient Active Problem List Diagnosis NSTEMI (non-ST elevated myocardial infarction) ([facility]/HCC) Type 2 diabetes mellitus with circulatory disorder, [...] to enter home. Pt becomes frustrated with software writer's questions re: PLOF, home safety, assistance [...] to 1: [employer] (more content not included)...[facility] 10-05-2024 Note Attestation signed by Leonardo [...] : Addie Jean Baptiste; 49 y.o. Location: [facility]/5160-01 Attending: Maye Ortiz DO Admit Date: [...] edema, morbid obesity who was taken to [facility] ED as she was noted to [...] were noted to be elevated 180-->166 pg/mL. [facility] Cardiology was consulted from [facility] and she is transferred here for further [...] Meds: aspirin, 81 m (more content not included)...[facility]05-14-2025 NoteHospital Medicine Discharge Summary Final Discharge Diagnosis: NSTEMI (non-ST elevated myocardial infarction) ([facility]/HCC) due to demand ischemia Type 2 diabetes mellitus with circulatory disorder, with long-term current use of insulin (CMS/HCC) Sick sinus syndrome (CMS/HCC) Acute renal failure with acute tubular necrosis superimposed on stage 3a chronic kidney disease ([facility]/HCC) Seizure ([facility]/HCC) Bipolar 1 disorder ([facility]/HCC) Acquired hypothyroidism Class 3 severe obesity due to excess calories with serious comorbidity and body mass index (BMI) of 50.0 to 59.9 in adult Plantar ulcer of left foot, limited to breakdown of skin ([facility]) Hypocalcemia Admission Diagnosis: NSTEMI (non-ST elevated myocardial infarction) ([facility]/HCC) [I21.4] Hospital course: Addie Jean Baptiste is [...] edema, morbid obesity who was taken to [facility] ED as she was noted to [...] 180-->166 pg/mL. NSTEMI (non-ST elevated myocardial infarction) ([facility]) - cards consulted - likely demand [...] disorder, with long-term current use of insulin ([facility]) - HgbA1C 10.7 - in insulin pump at home - may resume medications at discharge Sick sinus syndrome ([facility]) - s/p pacemaker - interrogation ordered- did review interrogation report with cardiology. Report is stable. No issues seen on report Acute renal failure with acute tubular necrosis superimposed on stage 3a chronic kidney disease ([facility]) -Cr improved today to 1.26 - renal US negative - neph consulted during the stay. Patient did improve. Recommend to follow up outpatient Seizure ([facility]) - neuro consulted at admission - Continue LEV 1g BID at least until outpt neuro follow up - Patient will need referral to [facility] neurology (for epileptologist) at discharge. - Neuro will sign off. Bipolar 1 disorder ([facility]) - continue celexa 40mg daily - [...] left foot, limited to breakdown of skin ([facility]) - vascular surgery consulted No plans for debridement at this time. No antibiotics necessary. Upon inspection today this is not ulcer but rather a dry callus, no open tissue present. Recommend to keep callus clean and dry and follow up outpatient follow up with her director medical science for routine callus paring. No need for paring this admission. Arter (more content not included)...[facility] 10-04-2024 NoteSW requested with new consult today for [facility]. Patient has hx of a provider that served [employer] that drove the [employer] . She said it was [employer] something . Referral made to [facility]. Patient states she doesn't have current [...] look for donated walker for discharge if available.[facility]05-13-2025 NoteOccupational Therapy Occupational Therapy Evaluation Patient Name: Addie Jean Baptiste : 1975 Today's Date: 10/04/2024 Start Time: 1345 Stop Time: 1413 Time Calculation (min): 28 min OT Evaluation Time Entry OT Evaluation (Moderate) Time Entry: 28 General Subjective: Patient stated she was recently evicted from her home in [facility]. Patient is now living with her sister in [place]. Patient agreed to get up to the [...] List Diagnosis NSTEMI (non-ST elevated myocardial infarction) (CMS/[facility]) Type 2 diabetes mellitus with circulatory disorder, with long-term current use of insulin ([facility]) Sick sinus syndrome ([facility]) Acute renal failure with acute tubular necrosis superimposed on stage 3a chronic kidney disease ([facility]) Seizure ([facility]) Bipolar 1 disorder ([facility]) Acquired hypothyroidism Class 3 severe obesity due to excess calories with serious comorbidity and body mass index (BMI) of 50.0 to 59.9 in adult Plantar ulcer of left foot, limited to breakdown of skin ([facility] [facility]) Hypocalcemia Past Medical History: Diagnosis Date Anxiety Bipolar 1 disorder ([facility]) Cardiac arrest ([facility]) 2019 Chronic back pain Chronic kidney disease Coronary artery disease Depression Diabetes mellitus ([facility]) Hypertension Insomnia Pacemaker Schizoaffective disorder ([facility] Seizures ([facility]) Stroke ([facility] Past Surgical History: Procedure Laterality Date CARDIAC [...] Level of Function Prior Function Level of Mission: Independent with ADLs and functional transfers, Needs [...] shower but patient perfo (more content not included)...[facility] 10-04-2024 NotePhysical Therapy Physical Therapy Evaluation [...] Pt is 49 y.o female presenting to [facility] ED following tonic-clonic seizure and episodes of [...] List Diagnosis NSTEMI (non-ST elevated myocardial infarction) ([facility]) Type 2 diabetes mellitus with circulatory disorder, with long-term current use of insulin ([facility]) Sick sinus syndrome ([facility]) Acute renal failure with acute tubular necrosis superimposed on stage 3a chronic kidney disease ([facility]) Seizure ([facility]) Bipolar 1 disorder ([facility]) Acquired hypothyroidism Class 3 severe obesity due to excess calories with serious comorbidity and body mass index (BMI) of 50.0 to 59.9 in adult Plantar ulcer of left foot, limited to breakdown of skin ([facility]) Hypocalcemia Past Medical History: Diagnosis Date Anxiety Bipolar 1 disorder ([facility]) Cardiac arrest ([facility]) 2019 Chronic back pain Chronic kidney disease Coronary artery disease Depression Diabetes mellitus ([facility]) Hypertension Insomnia Pacemaker Schizoaffective disorder ([facility]) Seizures ([facility]) Stroke ([facility]) Past Surgical History: Procedure Laterality Date CARDIAC [...] House Lives With: Family (Daughter, son, and evuiqae-of-duo) Home Living Comments: Pt states she was living with her son and DIL in [place] however the landlord kicked them out within the past week so they moved to [place] into her daughter's Home Layout: Two level, [...] Level of Function Prior Function Level of Mission: Independent with ADLs and functional transfers, Needs [...] Rest Breaks: 2 Act (more content not included)...[facility]05-13-2025 Note- s/p pacemaker - interrogation ordered- asked RN to call [facility] 10-04-2024 Note- HgbA1C 10.7 - in insulin pump at home - Glu 96-211 - currently lantus 12 units bid - currently ISSUnSt. [facility]05-13-2025 Note- continue celexa 40mg daily - continue pamelor 25mg nightly - continue seroquel 400mg nightlyUnSt. Anthony's Hospital05-13-2025 Note- encourage weight loss - may benefit from a GLP-1 inhibitor, defer to PCPPro[facility]05-13-2025 Note- cards consulted - likely demand ischemia in setting of acute kidney injury, and seizure episode and elevated lactate. [employer] device interrogation No current indication for heparin as her troponin is trending downward and patient is asymptomatic and having epistaxis. Aspirin 81 mg daily and Toprol 50 mg. Further recommendations to follow depending on echocardiogram results.[facility]05-13-2025 Note- neuro consulted at admission - Continue LEV 1g BID at least until outpt neuro follow up - Patient will need referral to [facility] neurology (for epileptologist) at discharge. - Recommend PT/OT. - Neuro will sign off.[facility]05-13-2025 Note- last TSH 3.71 - cont levothyroxine 75mcg dailyUnSt. Anthony's Hospital05-13-2025 Note- vascular surgery consulted No plans for debridement at this time. No antibiotics necessary. Upon inspection today this is not ulcer but rather a dry callus, no open tissue present. Recommend to keep callus clean and dry and follow up outpatient follow up with her director medical science for routine callus paring. No need for [...] follow up with our service at this timeUnSt. Anthony's Hospital05-13-2025 Note-Cr improved today to 1.75 - renal US negative - neph consultedUnSt. Anthony's Hospital05-13-2025 Note- Ca 8.2 today - daily CBC Consult PT/OT/ROUTE DELIVERY MANAGER Will DC foleyProMedica [facility]05-13-2025 NoteHospital Medicine Daily Progress Note - 10/04/2024 12:12 PM; Room: [address] [place] [address] Admission: 10/01/2024 9:19 AM; Length of stay: 3 days THE HOSPITALIST TEAM PREFERS TO USE BCNX CHAT FOR NON-URGENT COMMUNICATION 7AM-7PM. IF I DO NOT RESPOND WITHIN 20 MINUTES OR URGENT MATTERS, PLEASE CALL THROUGH THE GOLD PLATER. FROM 7PM-7AM, PLEASE PAGE [phone](COVR). Code Status: Full Code Barriers to Discharge: [...] edema, morbid obesity who was taken to [facility] ED as she was noted to [...] & Plan NSTEMI (non-ST elevated myocardial infarction) ([facility]) - cards consulted - [...] disorder, with long-term current use of insulin ([facility]) - HgbA1C 10.7 - in insulin pump at home - Glu 96-211 - currently lantus 12 units bid - currently ISS Sick sinus syndrome ([facility]) - s/p pacemaker - interrogation ordered- asked RN to call rep Acute renal failure with acute tubular necrosis superimposed on stage 3a chronic kidney disease ([facility]) -Cr improved today to 1.75 - renal US negative - neph consulted Seizure ([facility]) - neuro consulted at admission - Continue LEV 1g BID at least until outpt neuro follow up - Patient will need referral to [facility] neurology (for epileptologist) at discharge. - Recommend PT/OT. - Neuro will sign off. Bipolar 1 disorder ([facility]) - continue celexa 40mg [...] left foot, limited to breakdown of skin ([facility]) - vascular surgery consulted No plans for debridement at (more content not included)...[facility]05-12-2025 NoteCa 6.6 - albumin 2.5, corrected calcium 7.4 - will give one gram of calciumUnSt. Anthony's Hospital05-12-2025 Note-Cr improved today to 1.89 - renal US negative - neph consultedUnSt. Anthony's Hospital05-12-2025 Note- vascular surgery consulted No plans for debridement at this time. No antibiotics necessary. Upon inspection today this is not ulcer but rather a dry callus, no open tissue present. Recommend to keep callus clean and dry and follow up outpatient follow up with her director medical science for routine callus paring. No need for [...] follow up with our service at this timeProMedica [facility]05-12-2025 Note Attestation with edits by Leonardo [...] edema, morbid obesity who was taken to [facility] ED as she was noted to [...] were noted to be elevated 180-->166 pg/mL. [facility] Cardiology was consulted from [facility] and she is transferred here for [...] leg: No edema. N (more content not included)...[facility]05-12-2025 Note- neuro consulted at admission - Continue LEV 1g BID at least until outpt neuro follow up - Patient will need referral to [facility] neurology (for epileptologist) at discharge. - Recommend PT/OT. - Neuro will sign off.[facility]05-12-2025 Note- last TSH 3.71 - cont levothyroxine 75mcg dailyUnSt. Anthony's Hospital05-12-2025 Note- encourage weight loss - may benefit from a GLP-1 inhibitor, defer to PCPUnSt. Anthony's Hospital05-12-2025 Note- continue celexa 40mg daily - continue pamelor 25mg nightly - continue seroquel 400mg nightlyUnSt. Anthony's Hospital05-12-2025 Note- HgbA1C 10.7 - in insulin pump at home - Glu 115-413 - currently lantus 12 units bid - currently ISS - will discuss insulin dosing with pharmacy todayUnSt. Anthony's Hospital05-12-2025 Note- s/p pacemaker - interrogation orderedUnSt. Anthony's Hospital05-12-2025 Note- cards consulted - likely demand ischemia in setting of acute kidney injury, and seizure episode and elevated lactate. [employer] device interrogation No current indication for heparin as her troponin is trending downward and patient is asymptomatic and having epistaxis. Aspirin 81 mg daily and Toprol 50 mg. Further recommendations to follow depending on echocardiogram results. Cardiology team will continue to followUnSt. Anthony's Hospital 10-03-2024 NoteHospital Medicine Daily Progress Note - 10/03/2024 10:32 AM; Room: [address] [place] [address] Admission: 10/01/2024 9:19 AM; Length of stay: 2 days THE HOSPITALIST TEAM PREFERS TO USE BCNX CHAT FOR NON-URGENT COMMUNICATION 7AM-7PM. IF I DO NOT RESPOND WITHIN 20 MINUTES OR URGENT MATTERS, PLEASE CALL THROUGH THE GOLD PLATER. FROM 7PM-7AM, PLEASE PAGE [phone](COVR). Code Status: Full Code Barriers to Discharge: [...] edema, morbid obesity who was taken to [facility] ED as she was noted to [...] & Plan NSTEMI (non-ST elevated myocardial infarction) ([facility]) - cards consulted - [...] disorder, with long-term current use of insulin ([facility]) - HgbA1C 10.7 - in insulin pump at home - Glu 115-413 - currently lantus 12 units bid - currently ISS - will discuss insulin dosing with pharmacy today Sick sinus syndrome ([facility]) - s/p pacemaker - interrogation ordered Acute renal failure with acute tubular necrosis superimposed on stage 3a chronic kidney disease ([facility]) -Cr improved today to 1.89 - renal US negative - neph consulted Seizure ([facility]) - neuro consulted at admission - Continue LEV 1g BID at least until outpt neuro follow up - Patient will need referral to [facility] neurology (for epileptologist) at discharge. - Recommend PT/OT. - Neuro will sign off. Bipolar 1 disorder ([facility]) - continue celexa 40mg daily - [...] left foot, limited to breakdown of skin ([facility]) - vascular surgery consulted No plans for debridement at this time. No antibiotics necessary. Upon inspection razia (more content not included)...[facility]05-12-2025 Note Attestation signed by Kelley Liang RD at 10/03/2024 2:16 PM I attest that I was present for nutrition assessment and agree with photo intern's nutrition interventions and goals for pt. Adult Nutrition Assessment: Name: Addie Jean Baptiste Date: 1975 Date of Visit: 10/03/24 Admission Dx: NSTEMI (non-ST elevated myocardial infarction) ([facility]) [I21.4] Reason for assessment: high risk (L DFU) Information obtained from: patient, medical record, and nursing Past Medical History: Diagnosis Date Anxiety Bipolar 1 disorder ([facility]) Cardiac arrest ([facility]) 2019 Chronic back pain Chronic kidney disease Coronary artery disease Depression Diabetes mellitus ([facility]) Hypertension Insomnia Pacemaker Schizoaffective disorder ([facility] Seizures ([facility]) Stroke ([facility]) Current Medications: aspirin, 81 mg, oral, [...] she has had diabetes (more content not included)...[facility]05-12-2025 Note [facility] Vascular Surgery DAILY PROGRESS NOTE Subjective [...] Agent, Strain, 3D, Bubble Study 1 [facility] Heart Station [address] [place] [address] [phone] (fax) Echocardiogram-[facility] Name: ADDIE ORGAN Study Date: 10/01/2024 03:03 PM B/P: 127 mmHg/111 mmHg HR: Date of : 1975 Location: [facility] Height: 62 in. Age: 49 year(s) Patient [...] 12 mmHg TR V (more content not included)...[facility]05-11-2025 Note- last TSH 3.71 - cont levothyroxine 75mcg dailyUnSt. Anthony's Hospital05-11-2025 Note- encourage weight loss - may benefit from a GLP-1 inhibitor, defer to PCPUnSt. Anthony's Hospital05-11-2025 Note- Cr 3.0 today - neph consultedUnSt. Anthony's Hospital05-11-2025 Note- HgbA1C 10.7 - in insulin pump at home - Glu 134-249 - currently lantus 12 units bid - currently ISSUnSt. Anthony's Hospital05-11-2025 Note- cards consulted - likely demand [...] echocardiogram results. Cardiology team will continue to followUnSt. Anthony's Hospital 10-02-2024 Note- s/p pacemaker - interrogation orderedUnSt. Anthony's Hospital05-11-2025 Note- continue celexa 40mg daily - continue pamelor 25mg nightly - continue seroquel 400mg nightlyUnSt. Anthony's Hospital05-11-2025 Note- vascular surgery consulted No plans for debridement at this time No antibiotics necessary Wash wound daily with soap and water, keep dry Will obtain arterial studies to evaluate for peripheral vascular disease [facility]05-11-2025 Note- neuro consulted at admission - Continue LEV 1g BID at least until outpt neuro follow up - Patient will need referral to [facility] neurology (for epileptologist) at discharge. - Recommend PT/OT. - Neuro will sign off.[facility]05-11-2025 NoteHospital Medicine Daily Progress Note - 10/02/2024 10:59 AM; Room: [facility] [place] [address] Admission: 10/01/2024 9:19 AM; Length of stay: 1 days THE HOSPITALIST TEAM PREFERS TO USE BCNX CHAT FOR NON-URGENT COMMUNICATION 7AM-7PM. IF I DO NOT RESPOND WITHIN 20 MINUTES OR URGENT MATTERS, PLEASE CALL THROUGH THE GOLD PLATER. FROM 7PM-7AM, PLEASE PAGE [phone](COVR). Code Status: Full Code Barriers to Discharge: [...] edema, morbid obesity who was taken to [facility] ED as she was noted to [...] & Plan NSTEMI (non-ST elevated myocardial infarction) ([facility]) - cards consulted - likely demand [...] disorder, with long-term current use of insulin ([facility]) - HgbA1C 10.7 - in insulin pump at home - Glu 134-249 - currently lantus 12 units bid - currently ISS Sick sinus syndrome ([facility]) - s/p pacemaker - interrogation ordered Acute renal failure with acute tubular necrosis superimposed on stage 3a chronic kidney disease ([facility]) - Cr 3.0 today - neph consulted Seizure ([facility]) - neuro consulted at admission - Continue LEV 1g BID at least until outpt neuro follow up - Patient will need referral to [facility] neurology (for epileptologist) at discharge. - Recommend PT/OT. - Neuro will sign off. Bipolar 1 disorder ([facility]) - continue celexa 40mg daily - [...] arterial studies to evalua (more content not included)...[facility]05-11-2025 Note Attestation with edits by Juan C Crabtree MD at 10/02/2024 4:35 PM I personally saw and examined the patient on the same date of service as resident/fellow Dr Ho. I discussed the findings and therapeutic plan with the resident/fellow Dr Ho. I agree with the documentation, except for any edits/updates below. Teaching Physician's Revisions: None Juan C Crabtree MD, [facility] Cardiology Progress Note Subjective Subjective: Patient was [...] in acute distress. Appearanc (more content not included)...[facility] 10-01-2024 NoteUnOhio[facility] General Neurology Consultation [...] were noted to be elevated 180-->166 pg/mL. [facility] Cardiology was consulted from [facility] and she is transferred here for further management. A summary from her [facility] neurologist on 08/2023 noted: 2008 - VIDEO [...] History: Diagnosis Date Anxiety Bipolar 1 disorder ([facility]) Cardiac arrest ([facility]) 2019 Chronic back pain Chronic kidney disease Coronary artery disease Depression Diabetes mellitus ([facility]) Hypertension Insomnia Pacemaker Schizoaffective disorder ([facility]) Seizures ([facility]) Stroke ([facility]) PAST SURGICAL HISTORY: Past Surgical History: [...] Other and Rash O (more content not included)...[facility]05-10-2025 NoteHospital Medicine History and Physical 10/01/2024 9:31 AM THE HOSPITALIST TEAM PREFERS TO USE Acc[employer]rence FOR NON-URGENT COMMUNICATION 7AM-7PM. IF I DO NOT RESPOND WITHIN 20 MINUTES OR URGENT MATTERS, PLEASE CALL THROUGH THE GOLD PLATER. FROM 7PM-7AM, PLEASE PAGE [phone](COVR). Chief Complaint Intermittent anginal episodes, elevated troponin [...] edema, morbid obesity who was taken to [facility] ED as she was noted to [...] were noted to be elevated 180-->166 pg/mL. [facility] Cardiology was consulted from [facility] and she is transferred here for further [...] sinus problems, no radha (more content not included)...[facility]05-08-2025 History of Present illness Narrative* Jay Peralta MA - 09/29/2024 1:43 PM EDT Faxed rx e-stim 09/28/24 documented in this [id number] Noteerror AUTHENTICATED BY JIM VELEZ ON 09/27/2024 21:37:15[facility]05-05-2025 NoteErroneous encounter, patient not seen for office visit on this date. See documentation regarding seizure episodes in office lobby and transportation to ED. AUTHENTICATED BY STEPHANY PELAYO ON 09/26/2024 08:41:02[facility]05-02-2025 Instructions* Patient Instructions* Jim Velez DO - [...] completed Reorder TENS unit documented in this [id number] History of Present illness Narrative* Felix Olivae - 09/23/2024 10:55 AM EDT General Pain Index Questionnaire- [place] [facility] Date: 09/23/24 Patient Name: ___Anastasiay [...] Velez DO - 09/23/2024 10:50 AM EDT [facility] Interventional Pain Management Office [...] referral, TENS unit, and follow-up with new director medical science. -Addie has scheduled an appointment with a new director medical science, Dr. Sun, on the , as she [...] Pacemaker Schizoaffective disorder (HCC) Seizures (HCC) Stroke ([facility]) Past Surgical History Past Surgical History: Procedure Laterality Date CHOLECYSTECTOMY FOOT SURGERY HYSTERECTOMY ORTHOPEDIC SURGERY left foot surgery PACEMAKER INSERTION [place] AMPUTATION TOE METATARSOPHALANGEAL JOINT Left 04/01/2024 Procedure: AMPUTATION LEFT HALLUX; Surgeon: Shameka Castillo DPM; Location: [facility] Main OR; Service: Podiatry Social History Social [...] total) by mouth daily . Dexcom G6 Mineral Technologist Misc Use as directed for continuous glucose [...] by mouth daily . miscellaneous medical supply [facility] 1 each by Miscellaneous route daily . [...] OPIOIDS Jim Velez DO Interventional Pain Management [facility] documented in this [id number] NoteSub[facility] Office [...] referral, TENS unit, and follow-up with new director medical science. -Addie has scheduled an appointment with a new director medical science, Dr. Sun, on the , as she [...] History: Diagnosis Date Anx (more content not included)...[facility] [id number] NoteCathy Organ is a 49-year-old female patient of Stephany Pelayo PA-C who is presenting for follow-up visit. She does present in a wheelchair. I was walking a patient of mine out to the [place] when her repairer recreational vehicle flagged me down saying that she was losing consciousness in the lobby. When I approached patient she had her eyes open but was unresponsive. At that time I did call for assistance. Within about a minute patient did start talking to me and said that she has not been feeling good and has been dizzy and shaking. The repairer recreational vehicle with her said that he is not seeing her unresponsive like she was until just now. Staff members were able to start taking blood pressure at 2:18 PM with blood pressure at 139/85, heart rate 89 and oxygen was reading approximately 76% but patient has dark nail greek on. EMS was initiated at this time. [...] EMS arrived. Patient was transferred to [facility] and taken to ED. [...] over. AUTHENTICATED BY KARON BEARD, ON 09/22/2024 16:04:57[facility] [id number] History of Present illness Narrative* Karon Beard PA-C - 09/22/2024 3:55 PM EDT Addie Jean Baptiste is a 49-year-old female patient of Stephany Pelayo PA-C who is presenting for follow-up visit. She does present in a wheelchair. I was walking a patient of mine out to the lobby when her repairer recreational vehicle flagged me down saying that she was losing consciousness in the lobby. When I approached patient she had her eyes open but was unresponsive. At that time I did call for assistance. Within about a minute patient did start talking to me and said that she has not been feeling good and has beendizzy and shaking. The repairer recreational vehicle with her said that he is not [...] when EMS arrived. Patient was transferred to [facility] taken to ED. During each episode, [...] until EMS took over. documented in this [id number] Telephone encounter Note* Telephone Encounter - Moo Louise RN - 09/22/2024 3:29 PM EDT Pt had appt today but was sent to ED by pcp due to seizure in her office. She is out of Percocet. She didn't call for refill due to appt today. Appt rescheduled for tomorrow morning. [id number] Miscellaneous Notes* Telephone Encounter - Moo Louise RN - 09/22/2024 3:29 PM EDT Pt had appt today but was sent to ED by pcp due to seizure in her office. She is out of Percocet. She didn't call for refill due to appt today. Appt rescheduled for tomorrow morning. documented in this [id number] History of Present illness Narrative* Ladan Oliva - 08/24/2024 9:12 AM EDT Called pt to reschedule frida , unable to lvm documented in this [id number] History of Present illness Narrative* Rafaela Castillo MA - 08/04/2024 10:18 AM EDT Pulse ox order faxed to [employer]. documented in this [id number] Instructions* Patient Instructions* Rafaela Castillo MA - 08/02/2024 3:12 PM EDT Call Neurology for your refills at [phone] Call [facility] to check on referrals at [phone] documented in this [id number] [facility] PHYSICIANS [facility] [address] [place] [address]. [place] [address] Subjective Patient ID: Addie Jean Baptiste is [...] She has been receiving telehealth consultations from [facility], which she reports as beneficial. Asking for [...] scan, and is interested in seeing a medical insurance claims specialist. She reports difficulty in ambulating due to foot pain, which is exacerbated by the formation of new blisters with each attempt to walk. She has an upcoming appointment with her director medical science on 08/12/2024 for multiple diabetic foot wounds and likely planning for surgery. She has not been performing any wound care at home. She reports the presence of blisters under both breasts, which are non-pruritic but cause a burning sensation. She is concerned about the potential development of ulcers.She has been using a wheelchair for mobility and continues to see a sign painter helper. She has an upcoming appointment with an prosthetic dentist at [facility]. Not routinely checking BG. She [...] Pacemaker Schizoaffective disorder (HCC) Seizures (HCC) Stroke ([facility]) Past Surgical History: Procedure Laterality Date CHOLECYSTECTOMY FOOT SURGERY HYSTERECTOMY ORTHOPEDIC SURGERY left foot surgery PACEMAKER INSERTION WV AMPUTATION TOE METATARSOPHALANGEAL JOINT Left 04/01/2024 Procedure: AMPUTATION LEFT HALLUX; Surgeon: Shameka Castillo DPM; Location: [facility] Main OR; Service: Podiatry Family History Problem [...] (two) times a day . Dexcom G6 Mineral Technologist Misc Use as directed for continuous glucose [...] as directed . ame (more content not included)...[facility]03-11-2025 History of Present illness Narrative* Stephany Pelayo PA-C - 08/02/2024 2:09 PM EDT [facility] [place] [address] Subjective Patient ID: Addie Jean Baptiste is [...] She has been receiving telehealth consultations from [facility], which she reports as beneficial. Asking for [...] scan, and is interested in seeing a medical insurance claims specialist. She reports difficulty in ambulating due to foot pain, which is exacerbated by the formation of newblisters with each attempt to walk. She has an upcoming appointment with her director medical science on 08/12/2024 for multiple diabetic foot wounds and likely planning for surgery. She has not been performing any wound care at home. She reports the presence of blisters under both breasts, which are non-pruritic but cause a burning sensation. She is concerned about the potential development of ulcers.She has been using a wheelchair for mobility and continues to see a sign painter helper. She has an upcoming appointment with an prosthetic dentist at [facility]. Not routinely checking BG. She [...] ORTHOPEDIC SURGERY left foot surgery PACEMAKER INSERTION WV AMPUTATION TOE METATARSOPHALANGEAL JOINT Left 04/01/2024 Procedure: AMPUTATION LEFT HALLUX; Surgeon: Shameka Castillo DPM; Location: [facility] Main OR; Service: Podiatry Family History Problem [...] (two) times a day . Dexcom G6 Mineral Technologist Misc Use as directed for continuous glucose [...] Continue current medications as prescribed. Discharged from [facility] due to no-shows. 2. Chronic Pain of [...] mg daily, Toprol-XL 50 mg once daily, xekcrwpejkvogl70 mg daily. 8. Headaches Has been referred [...] to be establishing with an external sales operations analyst for evaluation. 18. Candidiasis Continue nystatin powder PRN 19. Insomnia Continue trazodone 100mg qhs PRN 20. B12 Deficiency Continue supplementation. 21. Vitamin D Deficiency Continue supplementation. 22. Health Maintenance. A mammogram will be ordered. Blood work will be ordered to monitor her overall health, including A1c levels. Diagnoses and all orders for this visit: Bipolar [address]) - citalopram (CELEXA) 40 MG tablet; Take 1 (one) tablet (40 mg total) by mouth daily . Chronic pain of both knees - Ambulatory Ref to [facility] (PT/OT/ST); Future Degeneration of intervertebral disc of lumbar region with discogenic back pain - Ambulatory referral to Spine Surgery; Future Chronic pain syndrome Diabetic ulcer of left great toe ([facility]) Type 2 diabetes mellitus with diabetic polyneuropathy, with long-term current use of insulin ([facility]) - Hemoglobin A1c; Future - Hemoglobin [...] Chronic obstructive pulmonary disease, unspecified COPD type ([facility]) - albuterol (PROVENTIL) 2.5 mg /3 [...] 12/02/2024). Stephany Pelayo PA-C documented in this [id number] History of Present illness Narrative* Rafaela Castillo MA - 07/21/2024 5:05 PM EST Shower chair order, ins card and OV note faxed to [employer]. documented in this [id number] [facility] PHYSICIANS [facility] [address] Subjective Patient ID: Addie Jean Baptiste is [...] her foot next week with podiatry in [place] for diabetic foot ulcer. She has been [...] She has requested referrals to a neurologist, verification manager, and prosthetic dentist at [facility]. She has a history of [...] ORTHOPEDIC SURGERY left foot surgery PACEMAKER INSERTION WV AMPUTATION TOE METATARSOPHALANGEAL JOINT Left 04/01/2024 Procedure: AMPUTATION LEFT HALLUX; Surgeon: Shameka Csatillo DPM; Location: [facility] Main OR; Service: Podiatry Family History Problem [...] (two) times a day . Dexcom G6 Mineral Technologist Misc Use as directed for continuous glucose [...] mg total) by mouth (more content not included)...[facility] [id number] History of Present illness Narrative* Stephany Pelayo PA-C - 07/15/2024 11:13 AM EST [facility] PHYSICIANS [facility] [address] [place] [address]. [place] [address] Subjective Patient ID: Addie Jean Baptiste is [...] her foot next week with podiatry in [place] for diabetic foot ulcer. She has been [...] She has requested referrals to a neurologist, verification manager, and prosthetic dentist at [facility]. She has a history of [...] ORTHOPEDIC SURGERY left foot surgery PACEMAKER INSERTION WV AMPUTATION TOE METATARSOPHALANGEAL JOINT Left 04/01/2024 Procedure: AMPUTATION LEFT HALLUX; Surgeon: Shameka Castillo DPM; Location: [facility] Main OR; Service: Podiatry Family History Problem [...] (two) times a day . Dexcom G6 Mineral Technologist Misc Use as directed for continuous glucose [...] 60 tablet 2 naloxone (NARCAN) 4 mg/actuation [place] Administer 1 spray into one nostril for [...] improve. Stephany Pelayo PA-C documented in this [id number] Telephone encounter Note* Telephone Encounter - Mihai Elizalde CNP - 07/14/2024 12:03 PM EST Percocet can remain at BID dosing for now. She can discuss this with Dr Velez in July [id number] Miscellaneous Notes* Telephone Encounter - Mihai Elizalde [...] normally. Noted slightly slurred speech. Encounter in [facility] dated today with PCP addressing seizure. * Telephone Encounter - Moo Louise RN - 07/13/2024 11:02 AM EST Pt called to check on rx request. She states that her director medical science was supposed to call our office torequest [...] year. She verbalized understanding. documented in this [id number] Telephone encounter Note* Telephone Encounter - Moo [...] normally. Noted slightly slurred speech. Encounter in [facility] dated today with PCP addressing seizure. [id number] Telephone encounter Note* Telephone Encounter - Moo Louise RN - 07/13/2024 11:02 AM EST Pt called to check on rx request. She states that her director medical science was supposed to call our office torequest [...] more than a year. She verbalized understanding. [id number] History of Present illness Narrative* Soto Box [...] Past Medical History: Diagnosis Date Diabetes mellitus ([facility]) Hypertension ([facility]) Medications: Current Outpatient Medications: amoxicillin-clavulanate (Augmentin) [...] , Rfl: ergocalciferol (Vitamin D2) 1.25 MG (66318 UT) capsule, Take 1 capsule by mouth [...] Resource Strain: Medium Risk (01/13/2024) Received from [facility] Overall Financial Resource Strain (CARDIA) Difficulty of Paying Living Expenses: Somewhat hard Food Insecurity: No Food Insecurity (04/27/2024) Received from [facility] Hunger Vital Sign Worried About Running Out of Food in the Last Year: Never true Ran Out of Food in the Last Year: Never true Transportation Needs: No Transportation Needs (04/27/2024) Received from [facility] PRAPARE - Transportation Lack of Transportation (Medical): No Lack of Transportation (Non-Medical): No Physical Activity: Not on file Stress: Not on file Social Connections: Not on file Intimate Partner Violence: Not At Risk (04/27/2024) Received from [facility] Humiliation, Afraid, Rape, and Kick questionnaire Fear of Current or Ex-Partner: No Emotionally Abused: No Physically Abused: No Sexually Abused: No Housing Stability: Low Risk (04/27/2024) Received from [facility] Housing Stability Vital Sign Unable to [...] noted mild venous stasis disease noted Neuro: [place]iel 5.07 monofilament absent Vibratory sensation diminished Musculoskeletal: Muscle strength +5/5 all intrinsic and extrinsic muscles tested ASSESSMENT 1. Type II diabetes mellitus with neurological manifestations ([facility]) 2. Chronic foot ulcer with fat layer exposed, left ([facility]) 3. Cellulitis of left foot PLAN [...] which she currently has follow up with [facility] Thursday for the procedure. LUPE Capellan documented in this encounterSamaritan [id number] History of Present illness Narrative* Rafaela Castillo MA - 06/07/2024 11:32 AM EST Confirmation received. Pending scanning. * Rafaela Castillo MA - 06/06/2024 1:35 PM EST Received fax from [employer] for incontinence supplies. Forms completed, signed and faxed. Waiting for confirmation. documented in this [id number] History of Present illness Narrative* Karon Meng LPN - 05/31/2024 8:29 AM EST error documented in this [id number] Telephone encounter Note* Telephone Encounter - Margarita Burgos LPN - 05/27/2024 1:34 PM EST Pt is scheduled for appt with [employer] on 06/08/24. [id number] Miscellaneous Notes* Telephone Encounter - Margarita Burgos LPN - 05/27/2024 1:34 PM EST [facility] * Telephone Encounter - Margarita Burgos LPN - 05/27/2024 1:33 PM EST ----- Message from Arcelia Whyte sent at 05/27/2024 1:23 PM EST ----- Regarding: Calling back with updated information Contact: Patient Patient called in states was suppose to call her [facility] and make an appointment and thencall back with that information. Patient advised she is now scheduled for 06/08/24 at 1:20 and is requesting that her QUEtiapine (SEROQUEL) 400 MG tablet () be filled. Patient states she was not aware that the office closed early today but needs the fill as soon as possible. Requesting a call back at [phone]. Thanks documented in this [id number] Telephone encounter Note* Telephone Encounter - Margarita Burgos LPN - 05/27/2024 1:33 PM EST ----- Message from Arcelia Whyte sent at 05/27/2024 1:23 PM EST ----- Regarding: Calling back with updated information Contact: Patient Patient called in states was suppose to call her [facility] and make an appointment and thencall back with that information. Patient advised she is now scheduled for 06/08/24 at 1:20 and is requesting that her QUEtiapine (SEROQUEL) 400 MG tablet () be filled. Patient states she was not aware that the office closed early today but needs the fill as soon as possible. Requesting a call back at [phone]. Thanks [id number] Instructions* Patient Instructions* Mihai Elizalde CNP - [...] Velez in 3 months documented in this [id number] [facility] Office [...] - She mentions a previous hospitalization at [facility], where a foot amputation was considered [...] ORTHOPEDIC SURGERY left foot surgery PACEMAKER INSERTION WV AMPUTATION TOE METATARSOPHA (more content not included)...[facility] [id number] History of Present illness Narrative* Mihai Elizalde CNP - 05/13/2024 8:50 AM EST [facility] Interventional Pain Management Office [...] - She mentions a previous hospitalization at [facility], where a foot amputation was considered [...] so we will maintain this for now [facility]. She continues Lyrica 75mg one capsule [...] ORTHOPEDIC SURGERY left foot surgery PACEMAKER INSERTION WV AMPUTATION TOE METATARSOPHALANGEAL JOINT Left 04/01/2024 Procedure: AMPUTATION LEFT HALLUX; Surgeon: Shameka Castillo DPM; Location: [facility] Main OR; Service: Podiatry Social History Social [...] total) by mouth daily . Dexcom G6 Mineral Technologist Mis Use as directed for continuous glucose [...] route daily . naloxone (NARCAN) 4 mg/actuation [place] Administer 1 spray into one nostril for [...] OPIOIDS Mihai Elizalde CNP Interventional Pain Management [facility] documented in this [id number] Progress note* Quick Note - Yvette Canchola RN - 04/29/2024 2:01 PM EST Spoke with Dr. Floyd Castillo, No dressing needed for patients foot. Leave open to air , Any drainagerecommend neosporin and band-aid [id number] Miscellaneous Notes* Quick Note - Yvette Canchola [...] injury Outcome: Partially Met documented in this [id number] Plan of care note* Plan of Care [...] Absence of physical injury Outcome: Partially Met [id number] [facility]12-06-2024 History of Present illness Narrative* Avila Rajan PA-C - 04/29/2024 9:21 AM EST [facility] NOTE ASSESSMENT: [...] daily . 90 tablet 1 Dexcom G6 Mineral Technologist Misc Use as directed for continuous glucose [...] 100 each 2 naloxone (NARCAN) 4 mg/actuation [place] Administer 1 spray into one nostril for [...] Reason for exam: Patient arrives with EMS ([facility]). She ambulated off of EMS cot [...] signs and symptoms: Patient arrives with EMS ([facility]). She ambulated off of EMS cot [...] - 04/28/2024 7:37 AM EST [facility] Assessment and Plan Addie Jean Baptiste is a 48 y.o. female patient of Stephany Pelayo PA-C with history of T2DM, HTN, bipolar disorder, and chronic back pain presented to [facility] on 01/12/2024 with left toe wound. [...] - 04/27/2024 7:42 AM EST [facility] NOTE Assessment and Plan Addie Jean Baptiste is a 48 y.o. female patient of Stephany Pelayo PA-C with history of T2DM, HTN, bipolar disorder, and chronic back pain presented to [facility] on 01/12/2024 with left toe wound. [...] normal mood and affect documented in this [id number] Hospital course Narrative* Lucina Preciado CNP - 04/29/2024 8:25 AM EST Images from the original note were not included. [facility] DIS[facility]GE SUMMARY -- [facility] Addie Jean Baptiste Admitted: 04/26/2024 Discharge Date: 04/29/24 PCP Handoff Recommended Outpatient Testing Follow up with podiatry Results Pending At Discharge NONE Clinical Summary Addie Jean Baptiste is a 48 y.o. female patient of Stephany Pelayo PA-C with history of T2DM, HTN, bipolar disorder, and chronic back pain presented to [facility] on 01/12/2024 with left toe wound. [...] daily . Quantity: 90 tablet Dexcom G6 Mineral Technologist Mis Generic drug: blood-glucose meter,continuous Use as [...] a day . Quantity: 60 tablet lancets [facility] 1 Lancet by Miscellaneous route 3 (three) [...] . Quantity: 100 each naloxone 4 mg/actuation [place] Commonly known as: NARCAN Administer 1 spray [...] on 04/29/24, 8:26 AM documented in this [id number] Telephone encounter Note* Telephone Encounter - Moo Louise RN - 04/28/2024 3:06 PM EST Pt in hospital, infection in toe amputation site. Due for refill on 04/22/24. [id number] Miscellaneous Notes* Telephone Encounter - Moo Louise RN - 04/28/2024 3:06 PM EST Pt in hospital, infection in toe amputation site. Due for refill on 04/22/24. documented in this [id number] [facility] 04-28-2024 Plan of care note* Plan [...] Absence of pressure injury Outcome: Partially Met [id number] [facility]12-04-2024 Consult note* Avila Rajan PA-C - 04/27/2024 10:35 AM ESTAssociated Order(s): IP CONSULT TO PODIATRY Images from the original note were not included. [facility] H&P/CONSULT ASSESSMENT: Diabetes [...] removing the stitches. Betadine dry sterile dressing exchange architect the amputation site. -- OR Plans: None - ABX: cefazolin based on recent surgical cultures, per primary - DSG: Betadine dry sterile dressing exchange architect the amputation site. - WBS: Heel weightbearing [...] PMH listed below who WAS ADMITTED TO [facility] ON 04/26/2024WITH postop toe infection Chief Complaint [...] ORTHOPEDIC SURGERY left foot surgery PACEMAKER INSERTION W[place] AMPUTATION TOE METATARSOPHALANGEAL JOINT Left 04/01/2024 Procedure: AMPUTATION LEFT HALLUX; Surgeon: Shameka Castillo DPM; Location: [facility] Main OR; Service: Podiatry FAMILY MEDICAL HISTORY: [...] 2.5 mg 2.5 mg Nebulization Q6H PRN Hrashad Rizzo MD atorvastatin (LIPITOR) tablet 40 mg 40 mg Oral Nightly Harshad Rizzo MD 40 mg at 04/27/24 0242 busPIRone (BUSPAR) tablet 30 mg 30 mg Oral BID Harshad Rizzo MD 30 mg at 04/27/24 0803 ceFAZolin (ANCEF) IVPB 2 g (premix) 2,000 mg Intravenous Q8H Harhsad Rizzo MD Stopped at 04/27/24 1453 enoxaparin [...] daily . 90 tablet 1 Dexcom G6 Mineral Technologist Misc Use as directed for continuous glucose [...] 100 each 2 naloxone (NARCAN) 4 mg/actuation [place] Administer 1 spray into one nostril for [...] Reason for exam: Patient arrives with EMS ([facility]). She ambulated off of EMS cot [...] signs and symptoms: Patient arrives with EMS ([facility]). She ambulated off of EMS cot [...] Castillo DPM at 04/28/2024 8:17 AM EST [id number] Consult note* Avila Rajan PA-C - 04/27/2024 10:35 AM ESTAssociated Order(s): IP CONSULT TO PODIATRY Images from the original note were not included. [facility] H&P/CONSULT ASSESSMENT: Diabetes [...] removing the stitches. Betadine dry sterile dressing exchange architect the amputation site. -- OR Plans: None - ABX: cefazolin based on recent surgical cultures, per primary - DSG: Betadine dry sterile dressing exchange architect the amputation site. - WBS: Heel weightbearing [...] PMH listed below who WAS ADMITTED TO [facility] ON 04/26/2024WITH postop toe infection Chief Complaint [...] ORTHOPEDIC SURGERY left foot surgery PACEMAKER INSERTION W[place] AMPUTATION TOE METATARSOPHALANGEAL JOINT Left 04/01/2024 Procedure: AMPUTATION LEFT HALLUX; Surgeon: Shameka Castillo DPM; Location: [facility] Main OR; Service: Podiatry FAMILY MEDICAL HISTORY: [...] Units 45 Units Subcutaneous Nightly Lucina Preciado, CLINICAL DOCUMENTATION SPECIALIST insulin lispro (AdmeLOG,HumaLOG) injection 0-15 Units [...] daily . 90 tablet 1 Dexcom G6 Mineral Technologist Misc Use as directed for continuous glucose [...] . 90 tablet 1 miscellaneous medical supply [facility] 1 each by Miscellaneous route daily . 100 each 2 naloxone (NARCAN) 4 mg/actuation [place] Administer 1 spray into one nostril for [...] Reason for exam: Patient arrives with EMS ([facility]). She ambulated off of EMS cot [...] signs and symptoms: Patient arrives with EMS ([facility]). She ambulated off of EMS cot [...] 04/28/2024 8:17 AM EST documented in this [id number] [facility] 04-27-2024 Plan of care note* Plan [...] Absence of pressure injury Outcome: Partially Met [id number] History and physical note* Harshad Rizzo MD - 04/26/2024 11:47 PM EST [facility] -- [facility] Patient Name: Addie Jean Baptiste : 1975 MR #: [id number] Admit Date: 04/26/2024 Physicians: Stephany Pelayo PA-C (Family); No ref. provider found (Referring) Addie Jean Baptiste is a 48 y.o. female patient of Stephany Pelayo PA-C with history of T2DM, HTN, bipolar disorder, and chronic back pain presented to [facility] on 01/12/2024 with left toe wound. [...] ORTHOPEDIC SURGERY left foot surgery PACEMAKER INSERTION WV AMPUTATION TOE METATARSOPHALANGEAL JOINT Left 04/01/2024 Procedure: AMPUTATION LEFT HALLUX; Surgeon: Shameka Castillo DPM; Location: [facility] Main OR; Service: Podiatry Family History Family [...] 04/26/24 11:47 PM Medications 04/26/24 11:47 PM [id number] History and physical note* Harshad Rizzo MD - 04/26/2024 11:47 PM EST [facility] -- [facility] Patient Name: Addie Jean Baptiste : 1975 MR #: [id number] Admit Date: 04/26/2024 Physicians: Stephany Pelayo PA-C (Family); No ref. provider found (Referring) Addie Jean Baptiste is a 48 y.o. female patient of Stephany Pelayo PA-C with history of T2DM, HTN, bipolar disorder, and chronic back pain presented to [facility] on 01/12/2024 with left toe wound. [...] ORTHOPEDIC SURGERY left foot surgery PACEMAKER INSERTION WV AMPUTATION TOE METATARSOPHALANGEAL JOINT Left 04/01/2024 Procedure: AMPUTATION LEFT HALLUX; Surgeon: Shameka Castillo DPM; Location: [facility] Main OR; Service: Podiatry Family History Family [...] Medications 04/26/24 11:47 PM documented in this [id number] Physician Emergency department Note* Jacoby Dooley MD - 04/26/2024 10:54 PM EST [facility] EMERGENCY DEPARTMENT ED Provider Note: Name: Addie [...] resistant Staphylococcus aureus) Pacemaker Seizures (HCC) St[facility] [facility]) Patient Active Problem List Diagnosis Hypertension S/P placement of cardiac pacemaker Type 2 diabetes mellitus with diabetic polyneuropathy, with long-term current use of insulin ([facility]) Bipolar 1 disorder (HCC) Seizures ([facility]) Chronic chest pain GERD (gastroesophageal reflux disease) Hypothyroidism Diabetic peripheral neuropathy ([facility]) Insomnia Generalized weakness Muscle spasms of both lower extremities Bowel incontinence Vitamin B12 deficiency Vitamin D deficiency Cigarette nicotine dependence COPD (chronic obstructive pulmonary disease) ([facility]) Left-sided weakness History of stroke Visual loss, left eye Family history of pulmonary fibrosis Family history of dementia Urinary incontinence Chronic headaches Hypercholesterolemia CKD (chronic kidney disease) Retinal hemorrhage Diabetic ulcer of left great toe ([facility]) Hypertensive urgency Chronic pain syndrome Chronic pain of both knees Abdominal wound dehiscence Candidiasis Abnormal pigmentation of skin Toe osteomyelitis ([facility]) Postoperative infection PSurg: Past Surgical History: Procedure Laterality Date CHOLECYSTECTOMY FOOT SURGERY HYSTERECTOMY ORTHOPEDIC SURGERY left foot surgery PACEMAKER INSERTION [place] AMPUTATION TOE METATARSOPHALANGEAL JOINT Left 04/01/2024 Procedure: AMPUTATION LEFT HALLUX; Surgeon: Shameka Castillo DPM; Location: [facility] Main OR; Service: Podiatry Allergies: Iodides, Ketorolac, [...] total) by mouth daily . Dexcom G6 Mineral Technologist Misc Use as directed for continuous glucose [...] route daily . naloxone (NARCAN) 4 mg/actuation [place] Administer 1 spray into one nostril for [...] All other components within normal limits Narrative: [facility] has implemented the eGFR [...] Procedure Abnormality Status --------- ------ CBC Auto Differential[[id number]] Abnormal Final result Please view results for [...] call required?: No Jacoby Dooley MD 04/26/24 2376 [id number] Emergency department Note* Jacoby Dooley MD - 04/26/2024 10:54 PM EST [facility] EMERGENCY DEPARTMENT ED Provider Note: Name: Addie [...] MRSA (methicillin resistant Staphylococcus aureus) Pacemaker Seizures ([facility]) Stroke ([facility]) Patient Active Problem List Diagnosis Hypertension S/P placement of cardiac pacemaker Type 2 diabetes mellitus with diabetic polyneuropathy, with long-term current use of insulin (HCC) Bipolar 1 disorder (HCC) Seizures ([facility]) Chronic chest pain GERD (gastroesophageal reflux disease) Hypothyroidism Diabetic peripheral neuropathy ([facility]) Insomnia Generalized weakness Muscle spasms of both lower extremities Bowel incontinence Vitamin B12 deficiency Vitamin D deficiency Cigarette nicotine dependence COPD (chronic obstructive pulmonary disease) ([facility]) Left-sided weakness History of stroke Visual loss, left eye Family history of pulmonary fibrosis Family history of dementia Urinary incontinence Chronic headaches Hypercholesterolemia CKD (chronic kidney disease) Retinal hemorrhage Diabetic ulcer of left great toe ([facility]) Hypertensive urgency Chronic pain syndrome Chronic pain of both knees Abdominal wound dehiscence Candidiasis Abnormal pigmentation of skin Toe osteomyelitis ([facility]) Postoperative infection PSurg: Past Surgical History: Procedure Laterality Date CHOLECYSTECTOMY FOOT SURGERY HYSTERECTOMY ORTHOPEDIC SURGERY left foot surgery PACEMAKER INSERTION [place] AMPUTATION TOE METATARSOPHALANGEAL JOINT Left 04/01/2024 Procedure: AMPUTATION LEFT HALLUX; Surgeon: Shameka Castillo DPM; Location: [facility] Main OR; Service: Podiatry Allergies: Iodides, Ketorolac, [...] total) by mouth daily . Dexcom G6 Mineral Technologist Misc Use as directed for continuous glucose [...] route daily . naloxone (NARCAN) 4 mg/actuation [place] Administer 1 spray into one nostril for [...] All other components within normal limits Narrative: [facility] has implemented the eGFR [...] Procedure Abnormality Status --------- ------ CBC Auto Differential[[id number]] Abnormal Final result Please view results for [...] call required?: No Jacoby Dooley MD 04/26/24 4062 * Ne Mike RN - 04/26/2024 9:45 PM EST Pt reports not taking her BP medication today * Rita Weinstein LPN - 04/26/2024 7:40 PM EST Patient reports 03/03 pain and states she took her last percocet yesterday. Patient also reports that she does take medication for high blood pressure. * Rita Weinstein LPN - 04/26/2024 7:35 PM EST Patient arrives with EMS ([facility]). She ambulated off of EMS cot [...] of arrival: Comments: 29 documented in this [id number] Emergency department Note* Ne Mike RN - 04/26/2024 9:45 PM EST Pt reports not taking her BP medication today [id number] Emergency department Note* Rita Weinstein LPN - 04/26/2024 7:40 PM EST Patient reports 10/10 pain and states she took her last percocet yesterday. Patient also reports that she does take medication for high blood pressure. [id number] Emergency department Triage note* Rita Weinstein LPN - 04/26/2024 7:35 PM EST Patient arrives with EMS ([facility]). She ambulated off of EMS cot [...] She reports redness, pain and clear drainage. [id number] Emergency department Note* Pavithra Lezama RN - 04/26/2024 7:35 PM EST Bed: 18 Expected date: Expected time: Means of arrival: Comments: 29 [id number] Note* Addendum Note - Mihai Elizalde CNP - 04/14/2024 11:03 AM ESTAddended by: MIHAI ELIZALDE on: 04/14/2024 11:03 AM Modules accepted: Orders [id number] Miscellaneous Notes* Addendum Note - Mihai Elizalde [...] has 1 tablet left. documented in this [id number] Telephone encounter Note* Telephone Encounter - Jim Velez DO - 04/12/2024 11:30 PM EST Already sent remaining 15 tabs [id number] Miscellaneous Notes* Telephone Encounter - Jim Velez [...] has 1 tablet left. documented in this [id number] Telephone encounter Note* Telephone Encounter - Moo Louise RN - 04/12/2024 5:09 PM EST Pt had to fill 15 tablets and pay oop due to insurance would not cover. Jean is trying to resubmit to insurance with updated info. But will need new rx for remaining 45 tablets. She only received 1 1/2 day supply and only has 1 tablet left. [id number] History of Present illness Narrative* Theresa. Roberto, SHYANN - 04/06/2024 8:29 AM EST PA request from [facility] for Omnipod faxed * aMite Adams LPN - 03/30/2024 2:52 PM EST [facility] prescription request form complete for Omnipod / faxed documented in this [id number] Hospital course Narrative* Ruthy Dong MD - 04/04/2024 12:23 PM EST Images from the original note were not included. [facility] DISCHARGE SUMMARY Addie Jean Baptiste Admitted: 03/24/2024 [...] disorder, and chronic back pain presented to [facility] on 03/25/2024 with left toe wound. [...] dos eot 35U qHs Diabetic diet Consulted museum educator: Resume insulin pump at discharge, verified [...] daily . Quantity: 90 tablet Dexcom G6 Mineral Technologist [facility] Generic drug: blood-glucose meter,continuous Use as directed [...] on 04/04/24, 12:23 PM documented in this [id number] [facility] 04-04-2024 History of Present illness Narrative* Avila Rajan PA-C - 04/04/2024 9:58 AM EST [facility] SURGICAL PROGRESS NOTE ASSESSMENT [...] capsule 500 mg 500 mg Oral Q12H [facility] Enrique Anthony, CLINICAL DOCUMENTATION SPECIALIST 500 mg at 04/03/242124 citalopram (CELEXA) tablet 40 mg 40 mg Oral Daily Juwan Smith MD 40 mg at 04/04/24 0857 enoxaparin (LOVENOX) syringe 40 mg 40 mg Subcutaneous BID Lowell Roberts, [facility],PharmD 40 mg at 04/04/24 0856 hydrALAZINE [...] mg 0.1 mg Intravenous PRN Floyd Rubin [facility],PharmD 0.1 mgat 03/28/24 0520 And naloxone (NARCAN) [...] Verio . 100 strip 5 Dexcom G6 Mineral Technologist Mis Use as directed for continuous glucose [...] Abnormal ECG Confirmed by Inessa Rao MD ([id number]) on 03/25/2024 8:01:09 AM XR Toe(s) Left [...] - 04/03/2024 6:55 AM EST [facility] PROGRESS NOTE Assessment and Plan Addie Jean Baptiste is a 48 y.o. female patient of Stephany Pelayo PA-C with history of T2DM, HTN, bipolar disorder, and chronic back pain presented to [facility] on 03/25/2024 with left toe wound. [...] dos eot 35U qHs Diabetic diet Consulted museum educator: Resume insulin pump at discharge, verified [...] 04/04 Patient requires continued hospitalization due to: Buffing Wheel Inspector request Discharge Location:home Quality Measures DVT [...] - 04/02/2024 8:43 AM EST [facility] PROGRESS NOTE Assessment and Plan Addie Organ is a 48 y.o. female patient of Stephany Pelayo PA-C with history of T2DM, HTN, bipolar disorder, and chronic back pain presented to [facility] on 03/25/2024 with left toe wound. [...] night Blood sugar improving Diabetic diet Consult museum educator: Hypertension Hyperlipidemia Continue to hold SHAJI [...] 04/04 Patient requires continued hospitalization due to: Buffing Wheel Inspector request Discharge Location:home Quality Measures DVT [...] PM EST [facility] PROGRESS NOTE ASSESSMENT AND PLAN: Diabetes [...] Jean Baptiste Admit Date: [id number] MR #: [id number] : 1975 Perpetual Assessment: Addie Jean Baptiste [...] - 04/01/2024 10:36 AM EST [facility] PRO[facility]ESS NOTE Assessment and Plan Addie Organ is a 48 y.o. female patient of Stephany Pelayo PA-C with history of T2DM, HTN, bipolar disorder, and chronic back pain presented to [facility] on 03/25/2024 with left toe wound. [...] night Blood sugar improving Diabetic diet Consult museum educator: Hypertension Hyperlipidemia Continue to hold SHAJI [...] Patient states she is requested amputation per director medical science Objective BP 138/82 (BP Location: Left arm, [...] pain Nutrition Related Allergies/Intolerances: latex Cultural or Restorationism Dietary Needs :No Cultural or Restorationism Dietary needs noted Patient/family comments:Deferred: Pt sleeping [...] Pump Inhibitors (Chronic Use) Ene MUNROE Office [phone] * Floyd Castillo DPM - 03/31/2024 12:51 PM EST Images from the original note were not included. [facility] PROGRESS NOTE ASSESSMENT [...] mg 500 mg Oral Q12H Enrique Gonzales, CLINICAL DOCUMENTATION SPECIALIST 500 mg at 03/31/24902 citalopram (CELEXA) tablet 40 mg 40 mg Oral Daily Juwan Smith MD 40 mg at 11/07/24 0903 enoxaparin (LOVENOX) syringe 40 mg 40 mg Subcutaneous BID Lowell Roberts [facility],PharmD 40 mg at 03/31/24902 insulin glargine (LANTUS) [...] mg 0.1 mg Intravenous PRN Floyd Rubin [facility],PharmD 0.1 mgat 03/28/24 0520 And naloxone (NARCAN) injection 0.4 mg 0.4 mg Intravenous PRN Floyd Rubin [facility],PharmD 0.4 mgat 03/26/24 2300 nicotine (NICODERM CQ) [...] Verio . 100 strip 5 Dexcom G6 Mineral Technologist Mis Use as directed for continuous glucose [...] Abnormal ECG Confirmed by Inessa Rao MD ([id number]) on 03/25/2024 8:01:09 AM XR Toe(s) Left [...] - 03/31/2024 11:25 AM EST [facility] PRO[facility]ESS NOTE Assessment and Plan Addie Organ is a 48 y.o. female patient of Stephany Pelayo PA-C with history of T2DM, HTN, bipolar disorder, and chronic back pain presented to [facility] on 03/25/2024 with left toe wound. [...] night Blood sugar improving Diabetic diet Consult museum educator: Hypertension Hyperlipidemia Continue to hold metoprolol [...] Jean Baptiste Admit Date: [id number] MR #: [id number] : 1975 Perpetual Assessment: Addie Jean Baptiste [...] sodium chloride (PF) 5 mL Intravenous Q8H [facility] timolol 1 drop Left [...] - 03/30/2024 1:38 PM EST [facility] PRO[facility]ESS NOTE Assessment and Plan Addie Organ is a 48 y.o. female patient of Stephany Pelayo PA-C with history of T2DM, HTN, bipolar disorder, and chronic back pain presented to [facility] on 03/25/2024 with left toe wound. [...] 30 units at night Diabetic diet Consult museum educator: Hypertension Hyperlipidemia Continue to hold metoprolol [...] Jean Baptiste Admit Date: [id number] MR #: [id number] : 1975 Perpetual Assessment: Addie Jean Baptiste [...] not included. [facility] PROGRESS NOTE ASSESSMENT [...] mg 30 mg Subcutaneous Daily Radha Castillo [facility],PharmD 30 mg at 03/29/242115 insulin glargine (LANTUS) [...] mg 0.1 mg Intravenous PRN Floyd Rubin, [facility],PharmD 0.1 mgat 03/28/24 0520 And naloxone (NARCAN) injection 0.4 mg 0.4 mg Intravenous PRN Floyd Rubin, [facility],PharmD 0.4 mgat 03/26/24 2300 nortriptyline (PAMELOR) capsule [...] Verio . 100 strip 5 Dexcom G6 Mineral Technologist Misc Use as directed for continuous glucose [...] Abnormal ECG Confirmed by Inessa Rao MD ([id number]) on 03/25/2024 8:01:09 AM XR Toe(s) Left [...] Jean Baptiste Admit Date: [id number] MR #: [id number] : 1975 Perpetual Assessment: Addie Jean Baptiste [...] - 03/29/2024 10:33 AM EST [facility] PRO[facility]ESS NOTE Assessment and Plan Addie Jean Baptiste is a 48 y.o. female patient of Stephany Pelayo PA-C with history of T2DM, HTN, bipolar disorder, and chronic back pain presented to [facility] on 03/25/2024 with left toe wound. [...] 20u at night today Diabetic diet Consult museum educator: Hypertension Hyperlipidemia Continue to hold metoprolol [...] - 03/28/2024 1:37 PM EST [facility] PRO[facility]ESS NOTE Assessment and Plan Addie Organ is a 48 y.o. female patient of Stephany Pelayo PA-C with history of T2DM, HTN, bipolar disorder, and chronic back pain presented to [facility] on 03/25/2024 with left toe wound. [...] to continue insulin pump Diabetic diet Consult museum educator: Admits that she has not been [...] Jean Baptiste Admit Date: [id number] MR #: [id number] : 1975 Perpetual Assessment: Addie Jean Baptiste [...] AM EST [facility] PROGRESS NOTE ASSESSMENT [...] mg 0.4 mg Intravenous PRN Floyd Rubin [facility],PharmD 0.4 mgat 03/26/24 2300 nortriptyline (PAMELOR) capsule [...] Verio . 100 strip 5 Dexcom G6 Mineral Technologist Mis Use as directed for continuous glucose [...] Abnormal ECG Confirmed by Inessa Rao MD ([id number]) on 03/25/2024 8:01:09 AM XR Toe(s) Left [...] - 03/27/2024 12:08 PM EST [facility] PRO[facility]ESS NOTE Assessment and Plan Addie Jean Baptiste is a 48 y.o. female patient of Stephany Pelayo PA-C with history of T2DM, HTN, bipolar disorder, and chronic back pain presented to [facility] on 03/25/2024 with left toe wound. [...] to continue insulin pump Diabetic diet Consult museum educator: Admits that she has not been [...] services and availability. Rev. Fawn Hinton MDiv, [facility] Staff Junior Software EngineerVelia Oscar Patients Response to Pastoral Care: Appeared to be well-engaged Planning for Future Visits: PRN 03/27/24 1040 Visit Background Visit With Patient Visit By Staff Junior Software Engineer Visit Progression Introduction Visit Requested By Junior Software Engineer Initiated Visit Source Junior Software Engineer Initiated Visit Type Inpatient;Rounding Visit Circumstances and Events Routine Visit Visit Length (minutes) 30 Patient's Response to Pastoral Care Appeared to be well-engaged Visit Planning PRN Spiritual Assessment Assessed during this visit Restorationism Assessment Not assessed during this visit Family assessment provided? Not assessed during this visit Patient Spiritual Needs Assessment Sources of Connection Daughter;Granddaughter;Grandson;Son Belief Practices Not Discussed Coping Mechanisms Family Support Spiritual Diagnosis Disconnected from Sources of Support Facilitated Interventions Active Listening;Explained Role of the Junior Software Engineer;Goal Setting Spiritual/Emotional Outcomes Appears less anxious;Appears more [...] AM EDT [facility] NOTE ASSESSMENT AND PLAN: Diabetes [...] - 03/26/2024 8:33 AM EDT [facility] PRO[facility]ESS NOTE Assessment and Plan Addie Organ is a 48 y.o. female patient of Stephany Pelayo PA-C with history of T2DM, HTN, bipolar disorder, and chronic back pain presented to [facility] on 03/25/2024 with left toe wound. [...] to continue insulin pump Diabetic diet Consult museum educator: Admits that she has not been [...] MRSA (methicillin resistant Staphylococcus aureus) Pacemaker Seizures ([facility]) Stroke ([facility]) Objective: Estimated Creatinine Clearance: 38.6 mL/min [...] (H) 12/09/2014 5.50 (H) Pharmacist: Floyd Rubin [facility],PharmD Contact Number: [phone] * Yuriy Wheeler RN - 03/25/2024 3:56 [...] of distress. Care continues. documented in this [id number] Miscellaneous Notes* Plan of Care - Ifeoma [...] (48 y.o.) Date of Service: 04/01/2024 CSN: [id number] Procedure(s): AMPUTATION LEFT HALLUX IPJ Pre-Operative Diagnoses: * osteomyelitis Post-Operative Diagnoses: * Same as Pre-Op Diagnosis Surgeons and Role: * Shameka Castillo DPM - Primary Anesthesiologist: Mk [place] MD BELT TENDER: Monique Palomares CRNA Animal Cruelty Investigator: Agueda Hunt RN Scrub Person: Monique Cheatham [...] needs to be reassessed. Enrique Anthony CNP [facility] - Infectious Diseases Office: [phone] * Quick Note - Radha Parikh RN [...] 03/26/2024 11:54 PM EDT Notified [facility]/Dr Brar that patient's BP was 71/46 with slurred speech and Blood sugar of 348. Dr Brar came to the floor and seen patient. See new orders. * Significant Event - John Solis MD - 03/26/2024 11:02 PM EDT [facility] Significant Event Note Reason for Call: Hypotension [...] - admitting glucose 646 HgbA1c 9.9 Consult museum educator Lactic acidosis LA 3.0 - 2.1 [...] sensation Outcome: Partially Met documented in this [id number] [facility] 04-02-2024 [facility]11-08-2024 [facility] 04-01-2024 [facility]11-08-2024 [facility] 03-31-2024 [facility]11-07-2024 Consult note* Kat Baldwin MSW SIDE SEAM MACHINE OPERATOR - 03/31/2024 11:37 AM ESTAssociated Order(s): IP [...] medical history of Anxiety, Bipolar [address] disorder ([facility]), Chronic back pain, Chronic kidney disease, stage [address] ([facility]), Coronary artery disease, Depression, Diabetes mellitus ([facility]), Hypertension, MRSA (methicillin resistant Staphylococcus aureus), Pacemaker, Seizures ([facility]), and Stroke ([facility]). Left DFI with ?OM: podiatry following [...] or discussed with Dr. Bean Anthony CNP [facility] - Infectious Diseases Office: [phone] Inpatient consult to Infectious Diseases Consult performed by: Enrique Anthony CNP Consult ordered by: Leticia Rajput MD Reason for consult: osteo big toe Chief Complaint: Toe pain HPI: Addie Jean Baptiste is a 48 y.o. female has a past medical history of Anxiety, Bipolar [address] disorder ([facility]), Chronic back pain, Chronic kidney disease, stage [address] unspecified ([facility]), Coronary artery disease, Depression, Diabetes mellitus ([facility]), Hypertension, MRSA (methicillin resistant Staphylococcus aureus),Pacemaker, Seizures ([facility]), and Stroke ([facility]). . She presented on 03/24/2024 with [...] Verio . 100 strip 5 Dexcom G6 Mineral Technologist Mis Use as directed for continuous glucose [...] Patient Name: Addie Jean Baptiste MR #: [id number] : 1975 Requesting provider: hospitalist Reason for [...] sugar. One Touch Verio . Dexcom G6 Mineral Technologist Misc Use as directed for continuous glucose [...] I have reviewed Progress Notes in the [facility] EHR and CareEverywhere. [x] I have interpreted/reviewed lab tests and radiography data in the [facility] EHR. [x] I have discussed the case with the primary service. [x] I have ordered appropriate tests/labs Comments: Thank you for allowing us to participate in the care of this patient. We will continue to follow. Please call if questions or concerns arise. * Merrick Almanza MD - 03/27/2024 12:12 PM ESTAssociated Order(s): IP CONSULT TO EDUCATIONAL ADVISOR Critical Care Consult Note Reason for Consultation: [...] 12/08/23 06/05/24 Sahara Sanchez MD Dexcom G6 Mineral Technologist Misc Use as directed for continuous glucose [...] 12:18 PM EDTAssociated Order(s): IP CONSULT TO DIRECTOR OF ANNUAL GIVING; IP CONSULT TO DIRECTOR OF ANNUAL GIVING Admission Dx: Reviewed H&P, Chart Review and [...] y.o. YEAR OLD female WAS ADMITTED TO [facility] ON 03/24/2024 WITH Chief Complaint Patient presents [...] mg 0.1 mg Intravenous PRN Floyd Rubin [facility],PharmD And naloxone (NARCAN) injection 0.4 mg 0.4 mg Intravenous PRN Floyd Rubin, [facility],PharmD nortriptyline (PAMELOR) capsule 25 mg 25 mg [...] mL 1,250 mg Intravenous Q24H Floyd Rubin, [facility],PharmD Medications Prior to Admission Medication Sig [...] daily . 90 tablet 1 Dexcom G6 Mineral Technologist Misc Use as directed for continuous glucose [...] 0 Shameka Castillo DPM documented in this [id number] [facility] 03-31-2024 [facility]11-06-2024 History of Present illness Narrative* Maite Adams LPN - 03/30/2024 2:52 PM EST [facility] prescription request form complete for Omnipod / faxed documented in this [id number] [facility] 03-30-2024 [facility]11-06-2024 [facility] 03-29-2024 [facility]11-05-2024 [facility] 03-28-2024 [facility]11-04-2024 [facility] 03-28-2024 [facility]11-03-2024 [facility] 03-26-2024 [facility]11-02-2024 [facility] 03-25-2024 History and physical note* Juwan Smith MD - 03/25/2024 12:22 AM EDT Images from the original note were not included. HMS HISTORY AND PHYSICAL -- [facility] Patient Name: Addie Jean Baptiste : 1975 MR #: [id number] Admit Date: 03/24/2024 Physicians: Stephany Pelayo PA-C (Family); No ref. provider found (Referring) Addie Jean Baptiste is a 48 y.o. female patient of Stephayn Pelayo PA-C with history of T2DM, HTN, bipolar disorder, and chronic back pain presented to [facility] on 03/25/2024 with left toe wound. [...] expedite correspondence this note was generated by InTouch Technology voice recognition software. The voice recognition software is inherently subject to errors including those of syntax and sound-alike substitutions which may escape proofreading. If such errors are discovered, or if there are any qu estions or concerns regarding the recommendations/plan of care, please contact the author of the note prior to undertaking the recommendations/plan of care. documented in this [id number] Emergency department Note* Ani Gonzales CNP - 03/24/2024 10:33 PM EDTAssociated Order(s): ECG 12- Lead Images from the original note were not included. [place] [id number] NAME: Addie Jean Baptiste AGE: 48 y.o. PCP: Stephany Pelayo PA-C CSN: [id number] Chief Complaint: Toe Pain CLINICAL IMPRESSION: 1. [...] available in inpatient encounters. Please contact a solar energy systems designer. HISTORY Chief Complaint: Toe Pain History of [...] total) by mouth daily . Dexcom G6 Mineral Technologist [facility] Use as directed for continuous glucose monitoring [...] All other components within normal limits Narrative: [facility] has implemented the eGFR [...] Procedure Abnormality Status --------- ------ CBC Auto Differential[[id number]] Abnormal Final result Please view results for [...] sinus rhythm and sinus tachycardia BPM: 109 WV Interval: 176 QRS Interval: 82 QT Interval: 328 Clinical impression: abnormal ECG and sinus tachycardia Ani Gonzales, MSN, INTERNAL AUDIT SENIOR MANAGER-BC, ENP-C Emergency Department Nurse Practitioner [facility] Emergency Department (Please note that portions [...] recurrent. Ctiy medic 29 documented in this [id number] Telephone encounter Note* Telephone Encounter - Moo Louise RN - 03/24/2024 3:21 PM EDT Pt called - [facility] is out of Percocet. Pharm[facility] refill request. Pt asked to let you know she is seeing director medical science on Thursday for possible surgery. [id number] Miscellaneous Notes* Telephone Encounter - Moo Louise RN - 03/24/2024 3:21 PM EDT Pt called - [facility] is out of Percocet. [facility]. Pt asked to let you know she is seeing director medical science on Thursday for possible surgery. documented in this [id number] [facility] INTERNAL MEDICINE [address] [place] [address] Subjective Patient ID: Addie Jean Baptiste is [...] daily . 90 tablet 1 Dexcom G6 Mineral Technologist Mis Use as directed for continuous glucose monitoring . 1 each 0 Dexcom G6 Sensor Simran Use as directed for continuous glucose monitoring change every 10 days . 3 each 11 Dexcom G6 Transmitter Simran Use as directed for continuous glucose monitoring change every 3 months . 1 each 3 glucagon (Gv (more content not included)...[facility] 03-22-2024 History of Present illness Narrative* Stephany Pelayo PA-C - 03/22/2024 10:53 AM EDT [facility] INTERNAL MEDICINE [address] [facility] [place] [id number] Subjective Patient ID: Addie Jean Baptiste is [...] MRSA (methicillin resistant Staphylococcus aureus) Pacemaker Seizures ([facility]) Stroke ([facility]) Past Surgical History: Procedure Laterality Date [...] mouth daily . 90 tablet1 Dexcom G6 Mineral Technologist Misc Use as directed for continuous glucose [...] up. Stephany Pelayo PA-C documented in this [id number] Telephone encounter Note* Telephone Encounter - Moo Louise RN - 03/08/2024 5:56 PM EDT Per med list, patient not taking Tizanadine. But she requested a refill. [id number] Miscellaneous Notes* Telephone Encounter - Moo Louise RN - 03/08/2024 5:56 PM EDT Per med list, patient not taking Tizanadine. But she requested a refill. documented in this [id number] NotePROGRESS :This report has been cancelled.[facility]09-16-2024 Telephone encounter Note* Telephone Encounter - Magnolia [...] mg total) by mouth daily. 10/07/23 Pharmacy: [facility] pharmacy Patient last seen: 10/07/23 Patient next scheduled appt: 03/01/24 [id number] Miscellaneous Notes* Telephone Encounter - Magnolia Chavira [...] mg total) by mouth daily. 10/07/23 Pharmacy: [facility] pharmacy Patient last seen: 10/07/23 Patient next scheduled appt: 03/01/24 documented in this [id number] Telephone encounter Note* Telephone Encounter - Jay Peralta MA - 02/03/2024 2:23 PM EDT PA requires tablets please double check the rx I sent you please. [id number] Miscellaneous Notes* Telephone Encounter - Jay Peralta MA - 02/03/2024 2:23 PM EDT PA requires tablets please double check the rx I sent you please. * Telephone Encounter - Moo Louise RN - 02/03/2024 1:50 PM EDT Rcvd call from pharmacist at [facility]. RX states to take 1 capsule 2 times a day as needed, then it says 2 tabs p.o. nightly. Qty 60. Please correct and resend. documented in this [id number] Telephone encounter Note* Telephone Encounter - Moo Louise RN - 02/03/2024 1:50 PM EDT Rcvd call from pharmacist at [facility]. RX states to take 1 capsule 2 times a day as needed, then it says 2 tabs p.o. nightly. Qty 60. Please correct and resend. [id number] Instructions* Patient Instructions* Jim Velez DO - [...] 2 p.o. nightly only documented in this [id number] History of Present illness Narrative* Jim Velez DO - 02/02/2024 4:05 PM EDT [facility] Interventional Pain Management Office [...] - She mentions a previous hospitalization at [facility], where a foot amputation was considered [...] tablet (1,000 mcg total) by mouth daily Reasons:[facility]. Dexcom G6 Mineral Technologist Misc Use as directed for continuous glucose [...] by mouth daily . miscellaneous medical supply [facility] 1 each by Miscellaneous route daily . [...] OPIOIDS Jim Velez D.O. Interventional Pain Management [facility] documented in this [id number] History of Present illness Narrative* Rafaela Medrano, BEATRIZ - 01/27/2024 1:50 PM EDT HPI Addie Organ is a 48 y.o. female Chief Complaint Patient presents with Follow-up Hosp follow up-left big toe Addie Jean Baptiste presents for hospital follow-up. She was seen at [facility] on 01/12/24 - 01/18/24 with L diabetic [...] She has not been to pharmacy to pickling machine operator her antibiotic. Reports she is in a [...] polyneuropathy, with long-term current use of insulin ([facility]) Bipolar [address] disorder ([facility]) Seizures ([facility]) Chronic chest pain GERD (gastroesophageal reflux disease) Hypothyroidism Diabetic peripheral neuropathy ([facility]) Insomnia Generalized weakness Diabetic ulcer of right foot associated with type 2 diabetes mellitus ([facility]) Muscle spasms of both lower extremities Bowel incontinence Vitamin B12 deficiency Vitamin D deficiency Cigarette nicotine dependence COPD (chronic obstructive pulmonary disease) ([facility]) Left-sided weakness History of stroke Visual loss, left eye Weight gain Family history of pulmonary fibrosis Family history of dementia Urinary incontinence Chronic headaches Hypercholesterolemia CKD (chronic kidney disease) Retinal hemorrhage Diabetic ulcer of left great toe ([facility]) Current Outpatient Medications: albuterol (PROVENTIL) 2.5 [...] (1,000 mcg total) by mouth daily Reasons: [facility]., Disp: 90 tablet, Rfl: 1 Dexcom G6 Mineral Technologist Misc, Use as directed for continuous glucose [...] this upon discharge, missed last day to pickling machine operator from pharmacy Medications refilled as needed - recheck TSH for thyroid maintenance medication SOLO Recheck BMP today We discussed the following: ICD-10-CM ICD-9-CM 1. Diabetic ulcer of right foot associated with type 2 diabetes mellitus, unspecified part of foot,unspecified ulcer stage ([facility]) E11.621 250.80 doxycycline hyclate (VIBRAMYCIN) 100 MG capsule L97.519 707.15 metFORMIN (GLUCOPHAGE) 1000 MG tablet 2. Primary hypertension I10 401.9 metoprolol succinate (TOPROL-XL) 50 MG 24 hr tablet lisinopriL (PRINIVIL,ZESTRIL) 30 MG tablet atorvastatin (LIPITOR) 40 MG tablet 3. SOLO (acute kidney injury) ([facility]) N17.9 584.9 Basic Metabolic Panel 4. [...] given to the patient. documented in this [id number] History of Present illness Narrative* Pippa Quiles RN - 01/18/2024 2:05 PM EDT AVS reviewed with patient. All requested supplies given to patient. Education on wound care provided to patient. Patient escorted to sister's car via wheelchair. All questions answered at this time. * Cris Cast RN - 01/18/2024 7:06 AM EDT Barriers to finding accepting [facility] agency: pt's home location (not many [facility] agencies in area), insurance not widely accepted [facility] agency: Accepted or Pending Name of agency: Accepted [facility] PENDING [facility] Referrals sent to: (names of agencies) Declined: [facility] - [facility] - [place] - [facility] - [place] - [facility] - [place] [facility] - staffing [facility] - no PT/OT [facility] Please be aware [facility] agencies have up to 24hours to respond. Many [facility] agencies closed on weekends, may take until Thursday to receive responses. [facility] created for the following services: yes - SN/PT/OT Verify the demographics (residential address) [address] [place], [place] [id number] What is the primary number to reach you? [phone] Who is your family physician/primary care physician? Stephany Pealyo PA-C [phone] Following physician will be: (list first name/last name) Do you have a caregiver and/or teachable caregiver (list relationship, name & phone #)? lives with family Estimated Discharge Date (KUNAL): 01/17 If discharge needs change, please reach out to Hub Liaison assigned on treatment team as hub is not notified of additional consults to [facility] once team is following. Thank you. * Mary Lou Castillo CNP - 01/17/2024 12:37 PM EDT NEPHROLOGY PROGRESS [facility] Patient Name: Addie Jean Baptiste Admit Date: [id number] MR #: [id number] : 1975 Perpetual Assessment: Addie Jean Baptiste [...] II/IIIa: Pt dos not follow with a ice carver in the OP setting. Risk factors for [...] created by dictation via voice recognition software ([employer]Touch [employer]). The completed note was reviewed for accuracy. [...] 3:55 PM EDT I personally performed a gxfc-sv-dqsh encounter and discussed in detail with the [...] created by dictation via voice recognition software ([employer]Touch [employer]). The completed note was reviewed for accuracy. [...] at this time Assessment and Background Information: SDCO Needs Addressed: Food Insecurity, Housing Stability, Financial Resource Strain Resources Provided - Food Insecurity: Added to AVS, Other (CHW referral) Resources Provided - Housing Stability: Added to AVS, Other (CHW referral) * Ruthy Dong MD - 01/17/2024 7:34 AM EDT [facility] PRO[facility] NOTE Assessment and Plan Addie Jean Baptiste is a 48 y.o. female patient of Stephany Pelayo PA-C with history of T2DM, HTN, bipolar disorder, and chronic back pain presented to [facility] on 01/12/2024 with left toe wound. [...] tablet (1,000 mcg total) by mouth daily Reasons:[facility]. Dexcom G6 Mineral Technologist Misc Use as directed for continuous glucose [...] - 01/16/2024 8:04 AM EDT [facility] PRO[facility]ESS NOTE Assessment and Plan Addie Jean Baptiste is a 48 y.o. female patient of Stephany Pelayo PA-C with history of T2DM, HTN, bipolar disorder, and chronic back pain presented to [facility] on 01/12/2024 with left toe wound. [...] tablet (1,000 mcg total) by mouth daily Reasons:[facility]. Dexcom G6 Mineral Technologist Misc Use as directed for continuous glucose [...] Visit With Patient;Healthcare Provider Visit By Staff Junior Software Engineer Visit Progression Attempt Visit Requested By Junior Software Engineer Initiated Visit Source Junior Software Engineer Initiated Visit Type Inpatient;Rounding Visit Circumstances and Events Routine Visit Visit Length (minutes) 5 Patient's Response to Pastoral Care Timing of Visit Not Optimal. Visit Rescheduled (Patient care needed) Visit Planning PRN Spiritual Assessment Unable to Assess during this visit Restorationism Assessment Unable to Assess during this visit Family assessment provided? Unable to asess during this visit Rev. Addie Bland MDiv. Staff Junior Software Engineer [facility] Contact * Haven Pope RN - 01/15/2024 [...] - 01/15/2024 9:04 AM EDT [facility] PRO[facility] NOTE Assessment and Plan Addie Jean Baptiste is a 48 y.o. female patient of Stephany Pelayo PA-C with history of T2DM, HTN, bipolar disorder, and chronic back pain presented to [facility] on 01/12/2024 with left toe wound. [...] tablet (1,000 mcg total) by mouth daily Reasons:[facility]. Dexcom G6 Mineral Technologist Misc Use as directed for continuous glucose [...] (CHW referral) Barriers to finding accepting [facility] agency: pt's home location (not many [facility] agencies in area), insurance not widely accepted HH agency: Accepted or Pending Name of agency: Accepted but cannot open for SOC until 01/18 [facility] Referrals sent to: (names of agencies) Declined: [facility]- staffing [place] [place] [facility] - [facility] - [facility] - [facility] [place] - [place] - [facility] - [facility]- [facility] Please be aware [facility] agencies have up to 24hours to respond. Many [facility] agencies closed on weekends, may take until Thursday to receive responses. [facility] created for the following services: yes - SN/PT/OT Verify the demographics (residential address) [address] [place] [address] What is the primary number to reach you? [phone] Who is your family physician/primary care physician? Stephany Pelayo PA-C [phone] Do you have a caregiver and/or teachable [...] PM EDT [facility] IN[facility]IENT PROGRESS NOTE ASSESSMENT AND PLAN: Diabetes [...] - 01/14/2024 12:18 PM EDT [facility] Assessment and Plan Addie Organ is a 48 y.o. female patient of Stephany Pelaoy PA-C with history of T2DM, HTN, bipolar disorder, and chronic back pain presented to [facility] on 01/12/2024 with left toe wound. [...] tablet (1,000 mcg total) by mouth daily Reasons:[facility]. Dexcom G6 Mineral Technologist Misc Use as directed for continuous glucose [...] sodium chloride 0.9 % 100 mL/hr (01/13/24 0875) sodium chloride 0.9 % subcutaneous insulin pump * Cris Cast RN - 01/14/2024 7:09 AM EDT 01/14/24 2:32pm - Called to [facility], [facility], and [facility]. Results are listed below. More referrals sent. Barriers to finding accepting [facility] agency: pt's home location (not many [facility] agencies in area), insurance not widely accepted [facility] agency: Accepted or Pending Name of agency: PENDING [facility] - call ringing and then not going through [facility] Accepted but cannot open for SOC until 01/18 [facility] Referrals sent to: (names of agencies) Declined: [facility] - [facility] - [facility] - [facility] [place] - [place] - [place] - [place] [facility] - staffing Please be aware [facility] agencies have up to 24hours to respond. Many [facility] agencies closed on weekends, may take until Thursday to receive responses. [facility] created for the following services: yes - SN/PT/OT Verify the demographics (residential address) [address] [place] [address] What is the primary number to reach you? [phone] Who is your family physician/primary care physician? Stephany Pelayo PA-C [phone] Following physician will be: (list first name/last [...] - 01/13/2024 9:07 AM EDT [facility] NOTE Assessment and Plan Addie Jean Baptiste is a 48 y.o. female patient of Stephany Pelayo PA-C with history of T2DM, HTN, bipolar disorder, and chronic back pain presented to [facility] on 01/12/2024 with left toe wound. [...] tablet (1,000 mcg total) by mouth daily Reasons:[facility]. Dexcom G6 Mineral Technologist Misc Use as directed for continuous glucose [...] not been spiked, are well within the power line installer expiration date and have been stored at room temperature (<28 days). Continue with insulin regimen as written. Please call pharmacy with any questions. Pharmacist: Yolie Knott RPh,PharmLauren Date: 01/12/2024 Contact Information: [phone] documented in this [id number] Hospital course Narrative* Harshad Rizzo MD - 01/18/2024 11:00 AM EDT Images from the original note were not included. [facility] DISCHARGE SUMMARY Addie Jean Baptiste Admitted: 01/12/2024 Discharge Date: 01/18/24 PCP Handoff Recommended Outpatient Testing None Results Pending At Discharge None Clinical Summary Addie Jean Baptiste is a 48 y.o. female patient of Stephany Pelayo PA-C with history of T2DM, HTN, bipolar disorder, and chronic back pain presented to [facility] on 01/12/2024 with left toe wound. [...] (1,000 mcg total) by mouth daily Reasons: [facility]. Quantity: 90 tablet Dexcom G6 Mineral Technologist Mis Generic drug: blood-glucose meter,continuous Use as [...] day thereafter . Quantity: 30 tablet lancets [facility] 1 Lancet by Miscellaneous route 3 (three) [...] Follow Up: Stephany Pelayo PA-C [address] [facility] [address] [facility] [address] Follow up [facility] Address: [facility] [facility] [address] Servicing Counties: [facility] [phone] Shameka Castillo, DPJoel [address] [facility] [address] [facility] [phone] Schedule an appointment as [...] on 01/18/24, 11:00 AM documented in this [id number] Hospital Discharge instructions * Discharge Instructions* Pippa Quiles RN - 01/18/2024 10:12 AM EDT * Discharge Instr - Care Coordination* Haven Pope RN - 01/13/2024 2:31 PM EDT [address] [address] Call [phone] ext. [phone] for more information -Summer Reading Program provides an individualized reading program during the summer months. -The [facility] Rx Program is a unique collaborative program in [facility]. The program assists [place] residents to obtain prescriptions in an affordable manner for immediate and ongoing needs. -The Volunteer Income Tax Assistance (DARÍO) is a free tax preparation service for low to moderate-income individuals and families. Federal and State tax returns can be completed and electronically filed. -The Emergency Food and Chcf Program (EFSP) is funded by the Department of [place] [employer] to assist with emergency food and fdc programs. Further information can be obtained by -The Rapid Rehousing and Homeless Prevention Programs are here to help those struggling with homelessness or who are in danger of becoming homeless. -The Payee Program assists individuals with managing their Social Security, [employer], orVA benefits. This program provides free payee services to individuals. Please note, we do not take on guardianship of the individual. -The Emergency Senior Funding is a melly from the [facility] on Aging to assist those 60and over with needs that are not met by other services in [place]. The funds are meant to help with [...] Caregiving: Foot and Toenail Care: General Info (Pal[place]an) * Chronic Wound: Healing: General Info (Pal[place]an) documented in this [id number] [facility] 01-17-2024 [facility]08-24-2024 Consult note* Mary Lou Castillo, BEATRIZ - 01/16/2024 10:55 AM EDTAssociated Order(s): IP CONSULT TO NEPHROLOGY NEPHROLOGY CONSULTATION [facility] Patient Name: Addie Jean Baptiste MR #: [id number] : 1975 Requesting physician: Hospitalist Reason for [...] II/IIIa: Pt dos not follow with a ice carver in the OP setting. Risk factors for [...] bipolar disorder, back pain who presented to [facility] with left toe wound. Per documentation, [...] tablet (1,000 mcg total) by mouth daily Reasons:[facility]. Dexcom G6 Mineral Technologist Misc Use as directed for continuous glucose [...] I have reviewed Progress Notes in the [facility] EHR and [facility]. [x] I have interpreted/reviewed lab tests and radiography data in the [facility] EHR. [x] I have discussed the case with the primary service. [x] I have ordered appropriate tests/labs Comments: Thank you for allowing us to participate in the care of this patient. We will continue to follow. Please call if questions or concerns arise. Potential limitations of the note: Parts of this note were created by dictation via voice recognition software (InTouch [employer]). The completed note was reviewed for accuracy. [...] 4:07 PM EDT I personally performed a vzfa-zi-ecde encounter and discussed in detail with the [...] created by dictation via voice recognition software (InTouch [employer]). The completed note was reviewed for accuracy. However, there may be subtle errors that were not found during the review. If such errors are discovered, or if there are any questions or concerns regarding the recommendations/plan of care, please contact the author of the note prior to undertaking the recommendations/plan of care. [id number] Consult note* Mary Lou Castillo, CLINICAL DOCUMENTATION SPECIALIST - 01/16/2024 10:55 AM EDTAssociated Order(s): IP CONSULT TO NEPHROLOGY NEPHROLOGY CONSULTATION [facility] Patient Name: Addie Jean Baptiste MR #: [id number] : 1975 Requesting physician: Hospitalist Reason for [...] II/IIIa: Pt dos not follow with a ice carver in the OP setting. Risk factors for [...] bipolar disorder, back pain who presented to [facility] with left toe wound. Per documentation, [...] tablet (1,000 mcg total) by mouth daily Reasons:[facility]. Dexcom G6 Mineral Technologist Misc Use as directed for continuous glucose [...] I have reviewed Progress Notes in the [facility] EHR and CareEverywhere. [x] I have interpreted/reviewed lab tests and radiography data in the [facility] EHR. [x] I have discussed the case with the primary service. [x] I have ordered appropriate tests/labs Comments: Thank you for allowing us to participate in the care of this patient. We will continue to follow. Please call if questions or concerns arise. Potential limitations of the note: Parts of this note were created by dictation via voice recognition software (InTouch [employer]). The completed note was reviewed for accuracy. [...] 4:07 PM EDT I personally performed a ckzi-qz-mogv encounter and discussed in detail with the [...] created by dictation via voice recognition software (InTouch Technology). The completed note was reviewed for accuracy. However, there may be subtle errors that were not found during the review. If such errors are discovered, or if there are any questions or concerns regarding the recommendations/plan of care, please contact the author of the note prior to undertaking the recommendations/plan of care. * Jos Soot, PT - 01/14/2024 11:27 AM EDT Physical Therapy PHYSICAL THERAPY EVALUATION Skilled Therapy Needs After Discharge Anticipate Resolution of Current Assessment Limitations Including: Pain, Mechanical Barriers Are heart surgeon Therapy Services Needed After Discharge: Yes Intensity of heart surgeon Therapy: 2-3 days per week Anticipated Duration of heart surgeon Therapy: Duration 10 - 30 days PT [...] Precautions Orthotic Devices: Yes Lower Extremity: Left ([place] shoe on) Weight Bearing Status: X LLE: Partial Wt bearing (Heel WB) General Rehab Precautions: Fall risk Balance Assessment Sitting Balance - Static: Independent Sitting Balance - Dynamic: Independent Standing Balance - Static: Minimal assist Rpg Programmer Analyst - Standing Static: BUE Standing Balance - Dynamic: Minimal assist, 2 person Rpg Programmer Analyst - Standing Dynamic: same downstairs maid used for static standing tasks Bed Mobility Supine to Sit: (NT- Patient was up in chair before and After PT eval) Transfers Sit to Stand: Contact guard assist Bed to Chair: Contact guard assist Rpg Programmer Analyst: BUE (Patient uses cane, but reports that [...] Function Receives Help From: Family Level of Mission - Transfers/Ambulation/Mobility: Independent with functional transfers, Independent with household ambulation Level of Mission - ADLs: Needs assistance Level of Mission - Homemaking: Independent Past Medical History: Diagnosis [...] motivation. The patient's home setup is a search lead, family / caregiver support is a search lead for return to prior level of function. The patient's education level is a search lead, compliance is a search lead to return to prior level of function. During the assessment, minimal to moderate modification of task was required and multiple treatmentoptions were identified in the plan of care. This consultation required expanded review of the medical and therapy history. Activity Tolerance Activity Tolerance: Tolerates less than 10 min activity, no significant change in vital signs Therapy Precautions Orthotic Devices: Yes Lower Extremity: Left ([place] Shoe) Weight Bearing Status: X LLE: Partial [...] assist Supine to Sit: Contact guard assist Rpg Programmer Analyst: bedrails Functional Transfers Sit to Stand: Contact guard assist Bed to Chair Transfers: Contact guard assist Stand Pivot Transfers: Contact guard assist Rpg Programmer Analyst: (gait belt, shoe, sock) Additional Assessment Details [...] Function Receives Help From: Family Level of Mission - Transfers/Ambulation/Mobility: Independent with functional transfers Level of Mission - ADLs: Needs assistance Level of Mission - Homemaking: Independent Past Medical History: Diagnosis Date Anxiety Bipolar 1 disorder (HCC) Bipolar disorder ([facility]) Chronic back pain Coronary artery disease Depression Diabetes mellitus ([facility]) Hypertension MRSA (methicillin resistant Staphylococcus aureus) [...] 01/13/24 2:37 PM - Liaison received a [facility] consult for [facility] needs. Patient's agency choice is no preference (would prefer not [place]) Barriers to finding accepting [facility] agency: pt's home location (not many [facility] agencies in area), insurance not widely accepted [facility] agency: Accepted or Pending Name of agency: [facility] Referrals sent to: (names of agencies) Declined: [facility] [place] [facility] [place] Please be aware [facility] agencies have up to 24hours to respond. Many [facility] agencies closed on weekends, may take until Thursday to receive responses. [facility] created for the following services: yes - SN/PT/OT Verify the demographics (residential address) [address] [place] [address] What is the primary number to reach you? [phone] Who is your family physician/primary care physician? Stephany Pelayo PA-C [phone] Following physician will be: (list first name/last name) Do you have a caregiver and/or teachable caregiver (list relationship, name & phone #)? lives with family Estimated Discharge Date (KUNAL): 01/14 If discharge needs change, please reach out to Hub Liaison assigned on treatment team as hub is not notified of additional consults to [facility] once team is following. Thank you. * [...] discharge needs. Pt lives with her sonand [id number]-csi, they provide support. She states that she [...] agency but does not wish to have [facility]. Referral to Hub entered. Plan A: Pt [...] y.o. YEAR OLD female WAS ADMITTED TO [facility] ON 01/12/2024 WITH Chief Complaint Patient presents [...] tablet 30 mg 30 mg Oral Q12H [facility] Mk Leigh MD 30 mg at 01/12/24 2218 chlorthalidone (HYGROTON) tablet 25 mg 25 mg Oral Daily Mk Leigh MD citalopram (CELEXA) tablet 20 mg 20 mg Oral Daily Mk Leigh MD divalproex (DEPAKOTE) delayed release (DR) tablet 500 mg 500 mg Oral Q12H [facility] Mk Leigh MD hydrOXYzine (ATARAX) tablet 50 mg 50 mg Oral TID PRN Mk Leigh MD melatonin Tab 5 mg 5 mg Oral Nightly PRN Enrique Lainez PA-C naloxone (NARCAN) injection 0.1 mg 0.1 mg Intravenous PRN Enrique Lainez PA-C And naloxone (NARCAN) injection 0.4 mg 0.4 mg Intravenous PRN Enrqiue Lainez PA-C ondansetron (ZOFRAN-ODT) disintegrating tablet 4 [...] tablet (1,000 mcg total) by mouth daily Reasons:[facility]. 90 tablet 1 Dexcom G6 Mineral Technologist Mis Use as directed for continuous glucose [...] 0 Shameka Brown DPM documented in this [id number] [facility] 01-15-2024 Note* Plan of Care - [...] Absence of physical injury Outcome: Partially Met [id number] Miscellaneous Notes* Plan of Care - Lauryn [...] functioning Outcome: Partially Met documented in this [id number] [facility] 01-14-2024 [facility]08-22-2024 [facility] 08-22-2024 Consult note* Jos Soto, PT - 01/14/2024 11:27 AM EDT Physical Therapy PHYSICAL THERAPY EVALUATION Skilled Therapy Needs After Discharge Anticipate Resolution of Current Assessment Limitations Including: Pain, Mechanical Barriers Are heart surgeon Therapy Services Needed After Discharge: Yes Intensity of heart surgeon Therapy: 2-3 days per week Anticipated Duration of heart surgeon Therapy: Duration 10 - 30 days PT [...] Independent Standing Balance - Static: Minimal assist Rpg Programmer Analyst - Standing Static: BUE Standing Balance - Dynamic: Minimal assist, 2 person Rpg Programmer Analyst - Standing Dynamic: same downstairs maid used for static standing tasks Bed Mobility Supine to Sit: (NT- Patient was up in chair before and After PT eval) Transfers Sit to Stand: Contact guard assist Bed to Chair: Contact guard assist Rpg Programmer Analyst: BUE (Patient uses cane, but reports that [...] Function Receives Help From: Family Level of Mission - Transfers/Ambulation/Mobility: Independent with functional transfers, Independent with household ambulation Level of Mission - ADLs: Needs assistance Level of Mission - Homemaking: Independent Past Medical History: Diagnosis [...] hospital or completion of Physical Therapy Plan. [id number] Consult note* Shawna Montoya OT - 01/14/2024 [...] motivation. The patient's home setup is a search lead, family / caregiver support is a search lead for return to prior level of function. The patient's education level is a search lead, compliance is a search lead to return to prior level of function. [...] assist Supine to Sit: Contact guard assist Rpg Programmer Analyst: bedrails Functional Transfers Sit to Stand: Contact guard assist Bed to Chair Transfers: Contact guard assist Stand Pivot Transfers: Contact guard assist Rpg Programmer Analyst: (gait belt, shoe, sock) Additional Assessment Details [...] Function Receives Help From: Family Level of Mission - Transfers/Ambulation/Mobility: Independent with functional transfers Level of Mission - ADLs: Needs assistance Level of Mission - Homemaking: Independent Past Medical History: Diagnosis Date Anxiety Bipolar 1 disorder (HCC) Bipolar disorder (HCC) Chronic back pain Coronary artery disease Depression Diabetes mellitus (HCC) Hypertension MRSA (methicillin resistant Staphylococcus aureus) Pacemaker Seizures (HCC) Stroke ([facility]) Past Surgical History: Procedure Laterality Date [...] completion of Occupational Therapy Plan of Care. [id number] Note* ED Attestation Note - Jacoby Dooley MD - 01/13/2024 11:56 PM EDT I performed a substantive part of the MDM during the patient's E/M visit. I personally made or approved the documented management plan and acknowledge its risk of complications Management/test interpretation discussed with midlevel provider. [facility] Work Phone: 1(301) 422-885408-21-2024 Consult note* Cris Cast RN - 01/13/2024 2:37 PM EDTAssociated Order(s): IP CONSULT TO [facility] 01/13/24 2:37 PM - Liaison received a Home Health [facility] consult for [facility] needs. Patient's agency choice is no preference (would prefer not [facility]) Barriers to finding accepting [facility] agency: pt's home location (not many [facility] agencies in area), insurance not widely accepted HH agency: Accepted or Pending Name of agency: [facility] Referrals sent to: (names of agencies) Declined: [facility] - [facility] [place] Please be aware [facility] agencies have up to 24hours to respond. Many [facility] agencies closed on weekends, may take until Thursday to receive responses. [facility] created for the following services: yes - SN/PT/OT Verify the demographics (residential address) [address] [place] [address] What is the primary number to reach you? [phone] Who is your family physician/primary care physician? Stephany Pelayo PA-C [phone] Following physician will be: (list first name/last name) Do you have a caregiver and/or teachable caregiver (list relationship, name & phone #)? lives with family Estimated Discharge Date (KUNAL): 01/14 If discharge needs change, please reach out to Hub Liaison assigned on treatment team as hub is not notified of additional consults to [facility] once team is following. Thank you. [id number] Consult note* Haven Pope RN - 01/13/2024 [...] discharge needs. Pt lives with her sonand [id number]-ol-kyk, they provide support. She states that she [...] screening addressed. Pt would like to have [facility] at discharge, she states no preference of an agency but does not wish to have [facility]. Referral to Hub entered. Plan A: Pt will return home with her family, home health services to be arranged. Plan B: Will follow pt for any additional needs. Assessment and Background Information: Living Arrangements: Family members Support Systems: Family members Assistance Needed: n/a Type of Residence: Private residence Prior to Admission Home Care Services: No Current Home Equipment: (Electric scooter) [id number] Note* [facility] - Jos Soto PT - 01/13/2024 12:16 PM EDT PHYSICAL THERAPY VISIT VARIANCE NOTE Attempted to see patient at this time, but unable secondary to: Patient Unavailable (comment) (currently BHAVNA for CAT scan). Will follow up as appropriate. [id number] Note* Quick Note - Chaim Lamb TECHNOLOGIST - 01/13/2024 9:59 AM EDT Patient has an ICD that is MRI compatible but she does not follow up with anyone for her device check. We do not have anyone to send MRI cardiology order form. [id number] Note* Plan of Care - Salena Ghotra [...] level of psychosocial functioning Outcome: Partially Met [id number] [facility]08-21-2024 Consult note* Lucina Henry RN - [...] wound bed and gema wound is red. [id number] Consult note* Shameka Castillo DPM - 01/13/2024 [...] y.o. YEAR OLD female WAS ADMITTED TO [facility] ON 01/12/2024 WITH Chief Complaint Patient presents [...] tablet 30 mg 30 mg Oral Q12H [facility] Mk Leigh MD 30 mg at 01/12/242217 chlorthalidone (HYGROTON) tablet 25 mg 25 mg Oral Daily Mk Leigh MD citalopram (CELEXA) tablet 20 mg 20 mg Oral Daily Mk Leigh MD divalproex (DEPAKOTE) delayed release (DR) tablet 500 mg 500 mg Oral Q12H [facility] Mk Leigh MD hydrOXYzine [...] tablet (1,000 mcg total) by mouth daily Reasons:[facility]. 90 tablet 1 Dexcom G6 Mineral Technologist Mis Use as directed for continuous glucose [...] 12/24/23. 30 tablet 0 Shameka Castillo DPM [id number] History and physical note* Enrique Lainez PA-C - 01/12/2024 5:19 PM EDT [facility] -- [facility] Patient Name: Addie Jean Baptiste : 1975 MR #: [id number] Admit Date: 01/12/2024 Physicians: Stephany Pelayo PA-C (Family); No ref. provider found (Referring) Addie Jean Baptiste is a 48 y.o. female patient of Stephany Pelayo PA-C with history of T2DM, HTN, bipolar disorder, and chronic back pain presented to [facility] on 01/12/2024 with left toe wound. [...] disorder, and chronic back pain presented to [facility] on 01/12/2024 with left toe wound. [...] 2, diabetic peripheral neuropathy Seizure disorder Obesity [id number] History and physical note* Enrique Lainez PA-C - 01/12/2024 5:19 PM EDT [facility] Patient Name: Addie Jean Baptiste : 1975 MR #: [id number] Admit Date: 01/12/2024 Physicians: Stephany Pelayo PA-C (Family); No ref. provider found (Referring) Addie Jean Baptiste is a 48 y.o. female patient of Stephany Pelayo PA-C with history of T2DM, HTN, bipolar disorder, and chronic back pain presented to [facility] on 01/12/2024 with left toe wound. [...] disorder, and chronic back pain presented to [facility] on 01/12/2024 with left toe wound. [...] neuropathy Seizure disorder Obesity documented in this [id number] Emergency department Note* Ace Rico - 01/12/2024 3:44 PM EDT Hourly rounding completed. Patient updated on plan on care. Comfort measures offered, patient givenwater and a warm blanket. No other needs at this time. [id number] Emergency department Note* Ace Rico - 01/12/2024 3:44 PM EDT Hourly rounding completed. Patient updated on plan on care. Comfort measures offered, patient givenwater and a warm blanket. No other needs at this time. * Matheus Chavira PA-C - 01/12/2024 3:24 PM EDT ED PROVIDER NOTE [facility] EMERGENCY DEPARTMENT NAME: Addie Jean Baptiste AGE: 48 y.o. : 1975 VISIT DATE: 01/12/2024 CSN: [id number] PCP: Stephany Pelayo PA-C Clinical Impression: 1. [...] I discussed this case with [facility] and they are willing to admit patient. [...] precipitated this pain. History provided by: Patient certified court interpreter used: No Wound Check Past Medical [...] tablet (1,000 mcg total) by mouth daily Reasons:[facility]. Dexcom G6 Mineral Technologist Misc Use as directed for continuous glucose [...] 2:31 PM EDT Pt was [facility]. Pt was seeing primary doc and wasreferred to our ED for a Lt great toe inf. Pt had an ongoing toe inf-- last Thursday skin/toe nail came off tip of toe. No drainage/odor notedat this time. * Saira Villatoro RN - 01/12/2024 2:31 PM EDT Bed: 02 Expected date: Expected time: Means of arrival: Comments: 28: 48F toe infection documented in this [id number] Physician Emergency department Note* Matheus Chavira PA-C - 01/12/2024 3:24 PM EDT ED PROVIDER NOTE [facility] EMERGENCY DEPARTMENT NAME: Addie Organ AGE: 48 y.o. : 1975 VISIT DATE: 01/12/2024 CSN: [id number] PCP: Stephany Pelayo PA-C Clinical Impression: 1. [...] I discussed this case with [facility] and they are willing to admit patient. [...] precipitated this pain. History provided by: Patient certified court interpreter used: No Wound Check Past Medical [...] tablet (1,000 mcg total) by mouth daily Reasons:[facility]. Dexcom G6 Mineral Technologist Misc Use as directed for continuous glucose [...] . BHARAT Austin Zachary Joel, PA-C 01/12/241701 [id number] History of Present illness Narrative* Stephany Pelayo PA-C - 01/12/2024 2:55 PM EDT [facility] [place] [address] Patient: Addie Jean Baptiste is a 48 [...] tablet (1,000 mcg total) by mouth daily Reasons:[facility]. 90 tablet 1 Dexcom G6 Mineral Technologist Mis Use as directed for continuous glucose [...] (HCC) Note: This dictation was generated using InTouch [employer] voice recognition software. Please excuse any grammatical [...] improve. Stephany Pelayo PA-C documented in this [id number] Emergency department Note* Karon Desai RN - 01/12/2024 2:31 PM EDT Pt was brought in [facility]. Pt was seeing primary doc and wasreferred to our ED for a Lt great toe inf. Pt had an ongoing toe inf-- last Thursday skin/toe nail came off tip of toe. No drainage/odor notedat this time. [id number] Emergency department Note* Saira Villatoro RN - 01/12/2024 2:31 PM EDT Bed: 02 Expected date: Expected time: Means of arrival: Comments: 28: 48F toe infection [id number] Telephone encounter Note* Telephone Encounter - Moo Louise RN - 01/11/2024 3:04 PM EDT Last UDS 12/08/23 Last OV 12/08/23 Next OV 02/02/24 [id number] Miscellaneous Notes* Telephone Encounter - Moo Louise RN - 01/11/2024 3:04 PM EDT Last UDS 12/08/23 Last OV 12/08/23 Next OV 02/02/24 documented in this [id number] Telephone encounter Note* Telephone Encounter - Moo Louise RN - 12/21/2023 1:36 PM EDT Pt states Percocet is helping a lot with pain. Requesting 30 day supply. [id number] Miscellaneous Notes* Telephone Encounter - Moo Louise RN - 12/21/2023 1:36 PM EDT Pt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 Castillo MA - 05/21/2023 8:10 AM EST Confirmation received * Rafaela Castillo MA - 05/20/2023 11:42 AM EST Images from the original note were not included. Prescription for hospital bed Received: Yesterday Junior Ghotra Pcp [address] Office Staff Caller: Self (Yesterday, 4:54 PM) Patient spoke with [facility] regarding her prescription for a hospital bed and they did not receive it.Patient wanted to know if it could be resent. Callback number: [phone] Reprinted orders, demographics, snapshot and OV notes to be refaxed to [facility]. * Rafaela Castillo MA - 05/15/2023 1:03 PM EST Hosp bed order with shmuel, notes sent to [facility]. Confirmation received. documented in this [id number] History of Present illness Narrative* Rafaela Castillo MA - 05/15/2023 1:03 PM EST Hosp bed order with shmuel, notes sent to [facility]. Confirmation received. documented in this [id number] History of Present illness Narrative* Faustina Severino RN - 05/15/2023 10:57 AM EST HOSPITAL: [facility] ADMISSION DATE: 05/10 DISCHARGE DATE:05/13 DIAGNOSIS: left [...] getting a ramp built. Informed that the [employer] may be anoption but possible waiting [...] meds with pt. 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 Nurse encouraged pt to take [...] Nurse provided patient education (pt states will pickling machine operator ASA today, wants to discuss with PCP atorvastatin before taking) Appointments Does the patient have a primary care provider? Yes Does the patient have a follow up appointment scheduled related to this admission? Within 7 - 14 days Nursing Interventions Verified appointment date/time/provider Self Management Was Home Health ordered? Yes Agency/Destination [facility] Home Care disciplines ordered RN;PT;OT Was Durable [...] their recovery period? Yes documented in this [id number] History of Present illness Narrative* Stephany Pelayo [...] Patient previously followed with PCP at [facility] and states she was no longer [...] care. Also asking to be referred to [employer] DEPARTMENT CHAIR for her w ell-woman exam and to [...] polyneuropathy, with long-term current use of insulin ([facility]) E11.42 250.60 FreeStyle Zeinab 2 [facility] Z79.4 357.2 FreeStyle Zeinab 2 Sensor Kit V58.67 Ambulatory referral to Endocrinology Ambulatory referral to Ophthalmology 3. Diabetic ulcer of right foot associated with type 2 diabetes mellitus, unspecified part of foot,unspecified ulcer stage ([facility]) E11.621 250.80 Ambulatory referral to Home Health L97.519 707.15 4. Diabetic peripheral neuropathy ([facility]) E11.42 250.60 Ambulatory referral to Endocrinology 357.2 5. Hypertensive urgency I16.0 401.9 chlorthalidone (HYGROTON) 25 MG tablet lisinopriL (PRINIVIL,ZESTRIL) 20 MG tablet metoprolol succinate (TOPROL-XL) 25 MG 24 hr tablet 6. Chronic obstructive pulmonary disease, unspecified COPD type ([facility]) J44.9 496 albuterol 90 mcg/actuation inhaler 7. Chronic chest pain R07.9 786.50 Ambulatory referral to Cardiology G89.29 338.29 8. S/P placement of cardiac pacemaker Z95.0 V45.01 Ambulatory referral to Cardiology 9. Hypothyroidism, unspecified type E03.9 244.9 10. Seizures ([facility]) R56.9 780.39 11. Bipolar [address] disorder ([facility]) F31.9 296.7 Ambulatory referral to Behavioral [...] (PREVNAR 20) 0.5 mL vaccine flu vaccine ha4007-48,6mos up, (FLUZONE QUAD/AFLURIA QUAD) injection Influenza IIV4 [...] tablet (1,000 mcg total) by mouth daily Reasons:[facility]. ergocalciferol (Vitamin D2) 1,250 mcg (50,000 unit) capsule Take 1.25 mcg by mouth once a week . flu vaccine kg4845-06,6mos up, (FLUZONE QUAD/AFLURIA QUAD) injection Sign this order in conjunctionwith the immunization order to satisfy [place] Board of Pharmacy Positive ID requirements for immunization orders. . 0.5 mL 0 fluticasone-salmeterol (ADVAIR DISKUS) 250-50 mcg/dose diskus inhaler Inhale 1 (one) puff 2 (two) times a day . FreeStyle Zeinab 2 Assumption Misc Inject 1 each under the skin [...] Psychiatric: Comments: Agitated, tangential documented in this [id number] consumer affairs manager Note* Case Communication - Radha Jameson OTA - 04/27/2023 6:32 PM ESTNO OT services provided this date due to patient refused due to illness. [id number] Miscellaneous Notes* Case Communication - Radha Jameson OTA - 04/27/2023 6:32 PM ESTNO OT services provided this date due to patient refused due to illness. documented in this [id number] Miscellaneous Notes* Quick Note - Emily Granados [...] Rizzo MD - 03/30/2023 11:54 AM EST KUFZ-WT-FIMU ENCOUNTER FOR HOME MEDICAL EQUIPMENT PATIENT: Addie Organ : 1975 Statement of Care: I certify that Addie Organ is under my care and that I had a wtsf-ae-sual encounter with this patient today to evaluate and discuss the need for home medical equipment. I certify that based on the findings of this evaluation, which included but was not limited to the wwgu-vy-hkrb requirements, the following home medical equipment is [...] goal Outcome: Partially Met documented in this [id number] Note* Quick Note - Emily Granados LPN - 03/30/2023 2:10 PM EST Pt port de-accessed per Dr order without complication. No bleeding, or sign of infection present. This nurse read over AVS with patient, who had no questions at this time. Pt declined staff transportvia wheelchair for discharge. Pt daughter- in- law transported via wheelchair for discharge. Pt discharged in stable condition. [id number] Hospital course Narrative* Harshad Rizzo MD - 03/30/2023 12:52 PM EST [facility] SUMMARY Addie Jean Baptiste Admitted: 03/29/2023 Discharge Date: 03/30/23 PCP Handoff Recommended Outpatient Testing None Results Pending At Discharge None Clinical Summary Addie Jean Baptiste is a 47 y.o. female patient of System, Provider Not In with history of T2DM, seizure disorder, HTN, and chronic back pain presented to [facility] with chest pain. Assessment and Plan [...] . Quantity: 30 tablet Physician(s) Follow Up: [facility] Address: Servicing Counties: [facility] [phone] Condition at Discharge: Stable Disposition: Home On day of discharge, I performed a final bedside evaluation including a physical exam. I reviewed discharge recommendations with the patient in person. Patient instructions, including activity, were given to the patient/family at discharge. Time spent on discharge: > 30 minutes Completed by: Harshad Rizzo on 03/30/23, 12:52 PM documented in this [id number] Consult note* Ximena Rincon RN MSN - 03/30/2023 11:55 AM ESTAssociated Order(s): [facility] agency: Accepted or Pending Name of agency: (if [place], include region) TIA Gunn can accept. [facility] created for the following services: [or waiting for ____ (i.e wound care)] Yes, SN/PT/OT/aide Verify the demographics (residential address) [address] [place] [address] What is the primary number to reach you? [phone] Who is your family physician/primary care physician? [facility] [phone] Message left with office Do you have a caregiver and/or teachable caregiver (list relationship, name & phone #)? Shi Jean Baptiste (Mother) [phone] (Home Phone) Has the patient been added to capacity board/tracking sheet? ([facility]) Velia without limitations Estimated Discharge Date (KUNAL): 03/30 If discharge needs change, please reach out to liaison assigned on treatment team as hub is not notified of new consults once team is following. Thank you. [id number] Consult note* Ximena Rincon RN MSN - 03/30/2023 11:55 AM ESTAssociated Order(s): IP [facility] agency: Accepted or Pending Name of agency: (if [facility], include region) [facility] can accept. [facility] created for the following services: [or waiting for ____ (i.e wound care)] Yes, SN/PT/OT/aide Verify the demographics (residential address) [address] [place] [address] What is the primary number to reach you? [phone] Who is your family physician/primary care physician? PCP Sheng [facility] [phone] Message left with office Do you have a caregiver and/or teachable caregiver (list relationship, name & phone #)? Shi Jean Baptiste (Mother) [phone] (Home Phone) Has the patient been added to capacity board/tracking sheet? ([facility]) Velia without limitations Estimated Discharge [...] Current Admission?: Yes Post-Acute Patient Choice 1: [facility] Post-Acute Patient Choice 2: no preference [...] need SN for medication management, PT/OT, and 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. After review of options, [facility] [...] CM called and spoke with [facility] Camp Director, Ashley [phone], she confirmed that patient has established with [...] application, as patient could benefit from long-term 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, medication management, and incontinence supplies. CHW Ravi [...] to chronic pain:: Yes documented in this [id number] Note* Quick Note - Harshad Rizzo MD - 03/30/2023 11:54 AM EST XRNT-BJ-JAIP ENCOUNTER FOR HOME MEDICAL EQUIPMENT PATIENT: Addie Jean Baptiste : 1975 Statement of Care: I certify that Addie Jean Baptiste is under my care and that I had a tcrq-fs-nbvz encounter with this patient today to evaluate and discuss the need for home medical equipment. I certify that based on the findings of this evaluation, which included but was not limited to the xmdl-mb-cjez requirements, the following home medical equipment is medically necessary: Transport wheelchair for the treatment of mobility limitations to enable participation in mobility-related activities of daily living (MRADL) in the home. Based on the current evaluation, patient can safely use prescribed equipment to perform mobility-related activities of daily living (MRADL) in the home.. Signed by: Harshad Rizzo MD on 03/30/2023 [id number] Consult note* Elisa Townsend RN - 03/30/2023 11:36 AM EST Associated Order(s): IP CONSULT TO CARE MANAGEMENT Care Management Consult Note Date: 03/30/2023 Time: 11:37 AM Patient Name: Addie Jean Baptiste Date of : 1975 Reason for Consult: Discharge Needs Discharge Plan: D/C Disposition: Home Health Care Services Related to Current Admission?: Yes Post-Acute Patient Choice 1: [facility] Post-Acute Patient Choice 2: no [...] need SN for medication management, PT/OT, and 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. After review of options, [facility] [...] CM called and spoke with [facility] Camp Director, Ashley [phone], she confirmed that patient has established with [...] a Waiver application was sent to [facility], but patient stated that no one ever contacted her regarding the application. CHW consulted to submit a new Waiver application, as patient could benefit from long-term 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, medication management, and incontinence supplies. CHCassandra Rodrigues [...] routine activities due to chronic pain:: Yes [id number] Note* Plan of Care - Dannielle Biu RN - 03/29/2023 10:52 PM EST Problem: [...] of comfort function goal Outcome: Partially Met [id number] History and physical note* Enrique Lainez PA-C - 03/29/2023 1:43 PM EST [facility] -- [facility] Patient Name: Addie Jean Baptiste : 1975 MR #: [id number] Admit Date: 03/29/2023 Physicians: System, Provider Not In (Family); No ref. provider found (Referring) Addie Jean Baptiste is a 47 y.o. female patient of System, Provider Not In with history of T2DM, seizure disorder, HTN, and chronic back pain presented to [facility] with chest pain. Atypical chest pain [...] HTN, and chronic back pain presented to [facility] with chest pain. Pt states that [...] - 03/29/2023 2:56 PM EST [facility] NOTE ADDENDUM I saw and examined the [...] Diabetic peripheral neuropathy Seizure disorder Morbid obesity [id number] History and physical note* Enrique Lainez PA-C - 03/29/2023 1:43 PM EST [facility] -- [facility] Patient Name: Addie Organ : 1975 MR #: [id number] Admit Date: 03/29/2023 Physicians: System, Provider Not In (Family); No ref. provider found (Referring) Addie Organ is a 47 y.o. female patient of System, Provider Not In with history of T2DM, seizure disorder, HTN, and chronic back pain presented to [facility] with chest pain. Atypical chest pain [...] HTN, and chronic back pain presented to [facility] with chest pain. Pt states that [...] - 03/29/2023 2:56 PM EST [facility] ADDENDUM I saw and examined the [...] Seizure disorder Morbid obesity documented in this [id number] Emergency department Note* Karon Desai RN - 03/29/2023 12:49 PM EST Called lab for HFP, and lipase- not troponin at this time. [id number] Emergency department Note* Karon Desai RN - 03/29/2023 12:49 PM EST Hourly rounding completed. Comfort measures and needs addressed. Pt resting on cot (notable chest rise and fall) with call light in reach. Pt updated on plan of care. [id number] Emergency department Note* Karon Desai RN - [...] for blood work again RNO * Keely Ageuro RN - 03/29/2023 9:53 AM EST Lab [...] of arrival: Comments: 26 documented in this [id number] Emergency department Note* Karon Desai RN - 03/29/2023 11:36 AM EST Hourly rounding completed. Comfort measures and needs addressed. Pt resting on cot (notable chest rise and fall) with call light in reach. Pt updated on plan of care. [address]23 Emergency department Note* Keely Aguero RN - 03/29/2023 10:30 AM EST Called lab for blood work again [place] [id number] Emergency department Note* Keely Aguero RN - 03/29/2023 9:53 AM EST Lab called for blood draw [address]2023 Emergency department Note* Keely Aguero RN - 03/29/2023 9:41 AM EST Pt states I have right sided sharp pain on the side of my stomach also. [id number] Emergency department Triage note* Keely Aguero RN - 03/29/2023 9:37 AM EST Per EMS She has had chest pain for 4 days. We have Asprin and nitroglycerin in route. She is pacedon the 4 lead. Pt states mid sternal chest pain 01/01 [id number] Emergency department Note* Alem Condon RN - 03/29/2023 9:36 AM EST Bed: 17 Expected date: Expected time: Means of arrival: Comments: 26 [id number] Hospital course Narrative* Harshad Rizzo MD - 02/20/2023 12:04 PM EDT [facility] SUMMARY Addie Jean Baptiste Admitted: 02/17/2023 Discharge Date: 02/20/23 Clinical Summary Addie Jean Baptiste is a 47 y.o. female patient of System, Provider Not In with history of diabetes, hypertension, hypothyroidism, COPD, and GERD, now presented to [facility] with chest pain. Assessment and Plan [...] on 02/20/23, 12:04 PM documented in this [id number] Note* CDI Query - Harshad Rizzo MD [...] Thank you Sole Noel RN, BSN Clinical Director Of Housing [phone] After business hours you may contact Shannen Manley at [phone] (Weekdays until 10 PM and weekends 8 AM -10 PM) [id number] Miscellaneous Notes* CDI Query - Harshad Rizzo [...] Thank you Sole Noel RN, BSN Clinical Director Of Housing [phone] After business hours you may contact Shannen Manley at [phone] (Weekdays until 10 PM and weekends 8 AM -10 PM) * Utilization Review - Pavithra Franco RN - 02/19/2023 2:12 PM EDT [facility] Utilization Review Notes EMERGENCY TEMPLATE HISTORY OF PRESENT ILLNESS: 47 y.o. female patient of System, Provider Not In with history of diabetes, hypertension, hypothyroidism, COPD, and GERD, now presented to [facility] with chest pain. Beginning around 4 [...] falls Outcome: Partially Met documented in this [id number] Consult note* Zayda Dorantes RN - 02/20/2023 9:10 AM EDTAssociated Order(s): IP CONSULT TO DIRECTOR OF ANNUAL GIVING Attempted to meet with patient for Diabetes Education this am. She refused stating, I want no part of it . Patient also refused education at her December admission. [id number] Consult note* Zayda Dorantes RN - 02/20/2023 9:10 AM EDTAssociated Order(s): IP CONSULT TO DIRECTOR OF ANNUAL GIVING Attempted to meet with patient for Diabetes [...] are currently staying in a motel in [place]. Pt asking for help withhousing. SW asked [...] she is also wanting to get an Patrol Police Sergeant here in [place] as hers is still in [place]. Pt is agreeable to Waiver referral. SW [...] Home Care Services: No documented in this [id number] Note* Utilization Review - Pavithra Franco RN - 02/19/2023 2:12 PM EDT [facility] Utilization Review Notes EMERGENCY TEMPLATE HISTORY OF PRESENT ILLNESS: 47 y.o. female patient of System, Provider Not In with history of diabetes, hypertension, hypothyroidism, COPD, and GERD, now presented to [facility] with chest pain. Beginning around 4 [...] NS IV AT 100 ML/HR DISPO: TBD [id number] History of Present illness Narrative* Harshad Rizzo MD - 02/19/2023 12:33 PM EDT [facility] PROGRESS NOTE Addie Jean Baptiste is a 47 y.o. female patient of System, Provider Not In with history of diabetes, hypertension, hypothyroidism, COPD, and GERD, now presented to [facility] with chest pain. Assessment and Plan [...] not been spiked, are well within the power line installer expiration date and have been stored at room temperature (<28 days). Continue with insulin regimen as written. Please call pharmacy with any questions. Pharmacist: Dannielle Barrett Date: 02/18/2023 Contact Information: [phone] Electronically signed by Dannielle Barrett [facility],PharmD at 02/18/2023 4:13 PM EDT documented in this [id number] Consult note* Zayda Dorantes RN - 02/19/2023 9:00 AM EDT Attempted to meet with patient this am for Diabetes Education. Per primary nurse, the patient is not clinically appropriate at this time. She is drowsy and hard to arouse. Will check back at a later time. [id number] Note* Quick Note - Mk Leigh MD [...] hypotension primarilymedication induced, low suspicion for infection. [facility] Work Phone: [phone] Hospital Discharge instructions* Discharge Instr - Care Coordination* Jalyn Yanes LISW - 02/18/2023 3:30 PM EDT ADDITIONAL HOUSING INFORMATION FOR AFFORDABLE HOUSING OPTIONS: [facility] Mobile Home Nunes [facility] Apartforsyth dental infirmary for children [place] [address] [place] Maris [place] [address] [phone] 1-3 bedroom metro accepted [place] [address] Carriage [place] [address] [phone] [phone] [place] [address] [phone] [facility] [address] [facility] [address] [place] [phone] 1-3bedroom subsidized housing [place] [address] [place] [address] [phone] [employer]fts [address] [phone] [place] [address] [facility] [address] [facility] [phone] [place] [address] [phone] [place] [address] [facility] [phone] [place] [address] [phone] [place] [facility] [address] [phone] [place] [address] [phone] [facility] [phone] & 2 bedrooms metro accepted [place] [address] [facility] [address] [facility] [address] [phone] 1 & 2 bedrooms metro accepted [employer] [address] [phone] [employer] [address] [facility] [address] [phone] [facility] [phone] [address] [phone] 1-3 bedroom metro accepted Shelter [place] [address] [facility] [address] [phone] 1-3 bedroom metro accepted [place] [address] [place] A[address] [phone] [facility] penitentiary [address] Wellness [phone] [place] [address] [facility] [phone] 1-3 bedroom available [facility] [address] [phone] 1-3 bedroom metro accepted [address] [place] [address] [phone] [place] [address] [phone] [address] [facility] [address] [phone] Duplexs and Houses [address] [phone] Johnny Wall [phone] [employer] Properties [address] [phone] Karen Stauffer [phone] [facility] Properties [address] Zonia Maldonado [phone] [facility] Management Co [address] [facility] [address] [phone] [facility] [phone] [facility] A[address] [phone] Alpha and [place] Properties [phone] [facility] [address] [facility] Edilber[address] [phone] Nikos Thomas [phone] [facility] Apaprtment [phone] Robert Duran [phone] METRO Edinson Farner [phone] [facility] Housing [address] [facility] [address] [place] [place] [phone] We Rent Velia (Chris Matamoros) [phone] Income Based Housing Javier Mello [email or web address] [facility] Apartments (Section 8) Bill Your [phone] [place] [address] Apartments (Section 8) Sleeping Rooms [facility] (Section 8) [place] [phone] [employer] Terece ( must be senior or disabled) [place] Sleeping Rooms [phone] Velia Towers (must be senior or disabled) [place] Sleeping Rooms - [phone] Tony Turner ( must be senior or disabled) Caryn Mario - [phone] Maximino Portillo - [phone] [employer] Websites to find Rentals https://www.[employer].com/groups/980864890265252/ www.rent.[employer] https://www.[employer].com/groups/791134197526480 www.apartments.[employer] https://www.[employer]/groups/2960537048465488/ www.rentals.[employer] https://www.[employer]/groups/805936904492464/ [employer]/apspjb-tbpsot-nh/rentals/ [facility] FOOD ASSISTANCE [facility] [phone] By appointment only Thursday-Thursday between 10am and 3pm ([address] [facility]. Must provide photoID and proof of address) [facility] [phone] , Thu, Thu, Sat 10a to 12p. 3p to 5p. ([address] [facility]. Photo ID and proof of address required) [facility] [phone] 3rd Sat of each month, 10a to 12p ([address] photo ID and proof of address required) Life (LINK) [phone] 4th Tues of each month. Call on Thursday between 10a and 2p to schedule ([address]) Chuy/German Community Pantry [phone] Thursday 2pm-6pm 1st Thursday Produce 2pm to 4pm [facility] [phone] ([address] [facility]. Call to inquire) [facility] [phone] Monthly giveaway, call for info ([address] [facility] Center[facility]) Sh[facility] [phone] Wednesdays 830am to 10am bread giveaway only ([address] [place]) Breaking Bread Food Pantry [phone] 3p to 5p ([address]. Photo ID and proof of address required) [facility] [phone] call for info ([address] [facility] Helping Hands Helping Others Food Pantry [phone] Mondays and Wed 4p to 7p, soup kitchen Tuesdays 530p to 6p ([address] [facility]. Photo ID and proof of address required) [facility] Food Pantry [phone] call for info ([address]) [facility] Commodity Supplemental Food Program Contact Fatimah at [phone] Food box distribution for income eligible [facility] seniors 60+ ([address] [place]) * Attachments The following attachments cannot be sent through Care Everywhere. * Chest Pain ([place]) documented in this [id number] Consult note* Jalyn Yanes LISW - 02/18/2023 [...] are currently staying in a motel in [place]. Pt asking for help withhousing. SW asked [...] she is also wanting to get an Patrol Police Sergeant here in [place] as hers is still in [place]. Pt is agreeable to Waiver referral. SW also suggested looking into [place] Sleeping rooms, or otheraffordable housing options. She did report she is able to make calls to places. Agreeable to housing help info on [employer]. SW faxed Waiver Referral. SW placed housing options on [facility] Community Resource Packet provided to pt. SW placed ambulatory referral to Endocrinology. Assessment and Background Information: Living Arrangements: Homeless Support Systems: Family members Assistance Needed: denies Type of Residence: (Hotel) Prior to Admission Home Care Services: No [id number] Note* Quick Note - Harshad Rizzo MD [...] echo Rest of management as per H&P [id number] Note* Plan of Care - Monique Grande [...] Goal: Absence of falls Outcome: Partially Met [id number] Physician Emergency department Note* Hayde Pickering, DO - 02/18/2023 12:25 AM EDTAssociated Order(s): ECG 12 Lead Images from the original note were not included. ED PROVIDER NOTE [facility] EMERGENCY DEPARTMENT NAME: Addie Organ AGE: 47 y.o. : 1975 VISIT DATE: 02/17/2023 CSN: [id number] PCP: System, Provider Not In Clinical Impression: [...] reviewed the patient's case with [facility] hospital[facility] whom accepted the patient for further [...] src Pulse Resp SpO2 Height Weight 02/17/23 8230 (!) 151/109 -- -- 91 18 98 [...] Yellow Clarity, Urine Hazy (A) Clear Specific [place] 1.025 1.005 - 1.025 pH, Urine 5.0 [...] 2. Chronic and incidental findings as above. [facility] Workstation ID: [id number] CT Head Or Brain [...] Ladan Gonzalez Karen Michelle, DO 02/18/23 0040 [id number] Emergency department Note* Hayde Pickering, - 02/18/2023 12:25 AM EDTAssociated Order(s): ECG 12 Lead Images from the original note were not included. ED PROVIDER NOTE [facility] EMERGENCY DEPARTMENT NAME: Addie Jean Baptiste AGE: 47 y.o. : 1975 VISIT DATE: 02/17/2023 CSN: [id number] PCP: System, Provider Not In Clinical Impression: [...] reviewed the patient's case with [facility] hospitalist whom accepted the patient for further [...] Yellow Clarity, Urine Hazy (A) Clear Specific [place] 1.025 1.005 - 1.025 pH, Urine 5.0 [...] Rhythm: sinus rhythm BPM: 96 Other findings: ELLA Clinical impression: abnormal ECG . Discontinued Medications [...] PM EDT Patient arrived from home via [facility] report Patient has been complaining [...] arrival: Comments: 26- CP documented in this [id number] History and physical note* Ambrosio Butcher MD - 02/18/2023 12:21 AM EDT [facility] -- [facility] Patient Name: Addie Jean Baptiste : 1975 MR #: [id number] Admit Date: 02/17/2023 Physicians: System, Provider Not In (Family); No ref. provider found (Referring) Addie Jean Baptiste is a 47 y.o. female patient of System, Provider Not In with history of diabetes, hypertension, hypothyroidism, COPD, and GERD, now presented to [facility] with chest pain. Chest pain Admit [...] hypothyroidism, COPD, and GERD, now presented to [facility] with chest pain. Beginning around 4 [...] normal coloration Psych: normal mood and affect [id number] History and physical note* Ambrosio Butcher MD - 02/18/2023 12:21 AM EDT [facility] -- [facility] Patient Name: Addie Jean Baptiste : 1975 MR #: [id number] Admit Date: 02/17/2023 Physicians: System, Provider Not In (Family); No ref. provider found (Referring) Addie Jean Baptiste is a 47 y.o. female patient of System, Provider Not In with history of diabetes, hypertension, hypothyroidism, COPD, and GERD, now presented to [facility] with chest pain. Chest pain Admit [...] hypothyroidism, COPD, and GERD, now presented to [facility] with chest pain. Beginning around 4 [...] normal mood and affect documented in this [id number] Emergency department Note* Eliana Khan RN - 02/17/2023 9:35 PM EDT Patient is complaining of chest pain all over, a headache, and right sided abdominal pain that radiates to her back. [id number] Emergency department Note* Eliana Khan RN - 02/17/2023 9:16 PM EDT Patient arrived from home via [facility] report Patient has been complaining of some chest tightness and SOB since around 4pm. Patient indicated that she feels that her chest is tight and the room is spinning. Patient had normal vitals in route. Asprin and nitroglycerin given in route. See EMS report [id number] Emergency department Note* Meaghan Devlin RN - 02/17/2023 9:16 PM EDT Bed: 10 Expected date: Expected time: Means of arrival: Comments: 26- CP [id number] Instructions* Patient Instructions* Josué Christianson DO - [...] repeat 10 to 20 times. Developed by [employer]. Published by [employer]. 2009 [employer] and/or its affiliates. All Rights Reserved. documented in this [id number] History of Present illness Narrative* Josué Christianson DO - 02/09/2023 2:36 PM EDT CC: Knee pain HPI HISTORY: Addie Jean Baptiste who is a 47 y.o. female that presents for evaluation of a chief complaint: Chief Complaint Patient presents with Right Knee - Pain NEW PATIENT RT KNEE PAIN, fell 01/19/23 went to [facility] No notes on file It is [...] pick it up tomorrow at pharmacy - [facility] in [place] . 06/01/20 Manuel Cardona MD fluticasone-salmeterol (ADVAIR [...] normal Alignment: normal Other FractureNegative BMP Order: [id number] Status: Final result Visible to patient: No [...] mellitus with other specified complication, unspecified whether fci insulin use (HCC) We a long discussion [...] (PRINIVIL,ZESTRIL) 40 MG tablet documented in this [id number] NoteEXAMINATION: XA L-SPINE MYELOGRAM LP 10/07/2022 03:42 [...] for the critical portions of the procedure.[facility] [id number] Hospital Discharge instructions* Discharge Instructions* Nikko Kendrick [...] see your Primary Care Physician (or call [phone] if you do not have a PCP) for follow up in the next 5-7 days. TRANSPORTATION TO [facility] FOR AN APPOINTMENT: PLEASE CALL [phone]. Extremity Injury Instructions: Return to the ED [...] Care Everywhere. * Urinary Incontinence Discharge Instructions (Palauan) * Diabetic Neuropathy (Palauan) documented in this [id number] NotePOST-PROCEDURE NOTE Procedure: Myelogram Pre-operative Diagnosis: concern [...] portion of the procedure. Sonia Beach MD [facility] NotePre-Procedure Note HISTORY: Procedure: Myelogram Indication: cauda [...] (Living will, health care power of civil litigation attorney): none Patient Recent Code Status: No Order Code Status For This Procedure: Full Code Sonia Beach MD [facility]05-15-2023 Evaluation + Plan noteExtracted from: Title:ED NoteAuthor:Charli [...] NM Myocardial Spect Rest/Stress 1 Day 12/16/21 [facility]04-24-2023 Hospital Discharge instructions Patient Education 09/15/2022 [...] cut, a sore, or an invasive medical transcription editor, it can cause a serious infection. What are the causes? This condition is caused by staph bacteria. Illness may develop after exposure to the bacteria through: Ejww-qb-owae contact with someone who is infected with MRSA. Touching surfaces that have the bacteria on them. Having a procedure or using equipment that allows MRSA to enter the body. Having MRSA that lives on your skin and then enters your body through: ?A cut or scratch. ?A surgery or procedure. ?The use of a medical transcription editor. Contact with the bacteria may occur: During a stay in a hospital, rehabilitation facility, assisted, or other health care facility (health care associated MRSA). In daily activities where there is close contact with others, such as sports, director child abuse therapy centers, or at home (community-associated MRSA). What [...] system (immune system). Play sports that involve zuom-se-gipc contact. Live in a crowded place, like a dormitory or [employer] barracks. Share towels, razors, or sports [...] Follow these instructions at home: Medicines Take tgel-fow-hlcobbq and prescription medicines only as told by [...] are not available, use an alcohol-based hand polysomnographic technologist. Avoid close contact with those around you [...] provider. Document Revised: 07/28/2019 Document Reviewed: 07/29/2019 [employer] Patient Education 2022 [employer]you. 09/15/2022 12:14:10 Cellulitis, Adult Cellulitis, Adult Cellulitis [...] Follow these instructions at home: Medicines Take mhfg-vac-aeqhrma and prescription medicines only as told by [...] such as antibiotic medicines or antihistamines. Take jdiq-vhw-sgwftax and prescription medicines only as told by [...] provider. Document Revised: 02/20/2022 Document Reviewed: 02/20/2022 [employer] Patient Education 2022 [employer]eatyou. Follow Up Care 09/12/2022 13:40:51 With:LAURENT FRANCO Address: [address] [place] [address]- Business (1) When: Unknown Comments:Appointment line is out of service. Please contact your PCP for an appointment. Thank you! With:Soto Box Address: [facility] [address] [facility] [place] [address]- 0 Business (1) When:3 to 5 days Comments:Call for followup appointment [facility]04-24-2023 Evaluation + Plan noteExtracted from: Title:Discharge [...] Oral, Daily ergocalciferol 50,000 intl units Cap, 09731 International_Unit= 1 cap(s), Oral, Thursday hydrOXYzine pamoate [...] Soto Box Within 3 to 5 days [facility] [address] [place] [address]- 0 Business (1) Additional Instructions: LAURENT FRANCO In 0 days [address] [place] [address]- Business (1) Additional Instructions: MRSA Infection, Diagnosis, Adult Cellulitis, Adult Extracted from:Title:APSO NoteAuthor:AMELIE GUEVARANP, CharleneDate:09/14/22 PLAN 1. Cellulitis (L03.90: Cellulitis, unspecified) Patiently recently admitted to [facility] and underwent an incision and drainage [...] shoe follow-up next week Her cultures at 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 Statin, aspirin, BB 4. HTN (hypertension) (I10: [...] (L03.90: Cellulitis, unspecified) Patiently recently admitted to [facility] and underwent an incision and drainage [...] pending. Consult podiatry pending Her cultures at 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 Statin, aspirin, BB 4. HTN (hypertension) (I10: [...] Consult to Infectious Disease Physician Consult to Buffing Wheel Inspector Continuous Pulse Oximetry Diabetic/Calorie Control Diet [...] NM Myocardial Spect Rest/Stress 1 Day 12/16/21 [facility]03-31-2023 Discharge summary Author Jeana Martini [facility] August 22, 2022 1:35pmNote Date/TimeMarch 2022 1:30pm[place] [address] Discharge Summary Signed Patient: Addie Jean Baptiste MR#: [id number] : 1975 Acct:[id number] Age/Sex: 47 / F Adm Date: 3 Loc: Room: [address] [place] [address]: Jeana Martini MD Copies to: Laurent Franco GENERATION MANAGERKandi Martini MD~ Providers Date of Discharge: 08/22/22 [...] on intravenous antibiotic Patient was seen by director medical science who recommended and performed bedside incision and [...] place, time and person, morbidly obese HEENT: [place] conjunctiva and NL buccal mucosa Neck: Supple, [...] ask your primary care provider to obtain [facility] records entirely to follow up on all of the abnormal physical, laboratory, and imaging findings thatI have not addressed. Please follow-up with Dr. Romero to evaluate your circulation Please return back to the emergency room or seek medical attention if your symptoms worsen or return. Discharging you from [facility] does not mean that your medical [...] [address] [facility] Work Phone: 1(367) 674-490903-31-2023 Hospital Discharge instructionsAmbulatory Orders* Initiate Home Health Time Frame: 08/22/22, Location: Determined By Patient Additional Instructions I may not have addressed or treated all of your medical illnesses or the abnormal blood work or imaging studies during this hospitalization. Please ask your primary care provider to obtain [facility] records entirely to follow up on all of the abnormal physical, laboratory, and imaging findings that I have not addressed. Please follow-up with Dr. Romero to evaluate your circulation Please return back to the emergency room or seek medical attention if your symptoms worsen or return. Discharging you from [facility] does not mean that your medical [...] Assist with medication management and provide medication [facility] Work Phone: 1(281) 651-197503-31-2023 Progress note Author Shameka Romero [facility] August 22, 2022 9:56amNote Date/TimeMarch 2022 9:56amElizabeth [place] [id number] Vascular Surgery Progress Note Signed Patient: Addie Jean Baptiste MR#: [id number] : 1975 Acct:[id number] Age/Sex: 47 / F Adm Date: 3 Loc: Room: [address] [place] [address] Type: ADM IN Attending Dr: Jeana Martini [...] foot. We did bring the patient down [facility] suite and [facility]. She is extremely anxious [...] signed by Shameka Romero MD> 08/22/22 0956 [facility] Work Phone: 1(259) 598-911403-31-2023 Progress note Author Jeana Martini [facility] August 22, 2022 9:54amNote Date/TimeMarch 2022 9:55[place] [address] Hospitalist Progress Note Signed Patient: Addie Jean Baptiste MR#: [id number] : 1975 Acct:[id number] Age/Sex: 47 / F Adm Date: 3 Loc: Room: [address] [place] [address] Type: ADM IN Attending Dr: Jeana Martini [...] place, time and person, morbidly obese HEENT: [place] conjunctiva and NL buccal mucosa Neck: Supple, [...] Jeana Martini MD> 08/22/22 0954 [facility] Work Phone: 1([phone]) 844-585403-30-2023 Consult note Author Shameka Romero [facility] August 21, 2022 4:02pmNote Date/TimeMarch 2022 4:00pm[place] [address] Vascular Surgery Consult Note Signed Patient: Addie Jean Baptiste MR#: [id number] : 1975 Acct:[id number] Age/Sex: 47 / F Adm Date: 3 Loc: Room: [address] [place] [address] Type: ADM IN Attending Dr: Jeana Martini [...] date: 08/21/2022 Requesting Physician: Jeana Martini MD [facility] Vaccinated for COVID-19?: Yes Medical History Anxiety [...] % (Auto) 69.4 Lymph % (Auto) 20.6 Ferry % (Auto) 7.4 Eos % (Auto) 1.8 Baso % (Auto) 0.8 Nucleat RBC Rel Count 0.0 Neut # (Auto) 5.7 Lymph # (Auto) 1.7 Ferry # (Auto) 0.6 Eos # (Auto) 0.2 [...] MPV Neut % (Auto) Lymph % (Auto) [place] % (Auto) Eos % (Auto) Baso % (Auto) Nucleat RBC Rel Count Neut # (Auto) Lymph # (Auto) [place] # (Auto) Eos # (Auto) Baso # [...] Acute Documented By: Shameka Romero MD 08/21/22 1557 Signed By: <Electronically signed by Shameka Romero MD> 08/21/22 1602 [facility] Work Phone: 1(980) 616-115903-30-2023 Progress note Author Lawrence Kim [facility] August 21, 2022 11:22amNote Date/TimeMarch 2022 11:22[place] [id number] Infect. Disease Progress Note Signed Patient: Addie Jean Baptiste MR#: [id number] : 1975 Acct:[id number] Age/Sex: 47 / F Adm Date: 3 Loc: 3T Room: [address] [place] [address] Type: ADM IN Attending Dr: Jeana Martini [...] Mg/0.4 Ml Syringe) 40 mg SUBCUT DAILY@1000 [facility] Stop: 08/20/23 09:59 Last [...] 300 Units/3 Ml Insuln.Pen) 0 units SUBCUT TID.WM.[facility]; Protocol Stop: 08/20/23 11:59 Last Admin: 08/21/22 09:03 Dose: Not Given Levetiracetam (Levetiracetam 250 Mg Tablet) 750 mg PO BID SAMEER Stop: 08/20/23 08:59 Last Admin: 08/21/22 08:59 Dose: 750 mg Levothyroxine Sodium (Levothyroxine 75 Mcg Tablet) 75 mcg PO DAILY@0630 [facility] Stop: 08/20/23 06:29 Last Admin: 08/21/22 06:09 Dose: 75 mcg Lisinopril (Lisinopril 40 Mg Tablet) 40 mg PO DAILY [facility] Stop: 08/20/23 08:59 Last Admin: 08/21/22 09:01 Dose: 40 mg Metformin HCl (Metformin 500 Mg Tablet) 1,000 mg PO BID.WITH.MEALS [facility] Stop: 08/20/23 07:59 Last Admin: 08/21/22 09:00 Dose: 1,000 mg Pantoprazole Sodium (Pantoprazole 40 Mg Tablet.Dr) 40 mg PO DAILY [facility] Stop: 08/21/23 08:59 Last Admin: 08/21/22 09:01 Dose: 40 mg Pregabalin (Pregabalin 150 Mg Capsule) 150 mg PO [facility] Stop: 02/16/23 03:44 Last Admin: 08/20/22 21:12 Dose: 150 mg Quetiapine Fumarate (Quetiapine Fumarate 200 Mg Tablet) 800 mg PO [facility] Stop: 08/20/23 03:59 Last Admin: 08/20/22 21:12 Dose: 800 mg Saccharomyces Boulardii (Saccharomyces Boulardii 250 Mg Capsule) 250 mg PO BID.WITH.MEALS [facility] Stop: 08/20/23 07:59 Last [...] signed by MD Lawrence Kim> 08/21/22 1122 [facility] Work Phone: [phone]) [phone] Progress note Author Jeana Martini [facility] August 21, 2022 10:10amNote Date/TimeMarch 2022 10:10am[place] [address] Hospitalist Progress Note Signed Patient: Addie Jean Baptiste MR#: [id number] : 1975 Acct:[id number] Age/Sex: 47 / F Adm Date: 3 Loc: 3T Room: [address] [place] [address] Type: ADM IN Attending Dr: Jeana Martini [...] place, time and person, morbidly obese HEENT: [place] conjunctiva and NL buccal mucosa Neck: Supple, [...] signed by Jeana Martini MD> 08/21/22 1010 [facility] Work Phone: [phone]) [phone] Consult note Author Swapnil Castillo [facility] August 20, 2022 1:14pmNote Date/TimeMarch 2022 1:13pm[place] [address] Podiatry Consult Note Signed Patient: Addie Jean Baptiste MR#: [id number] : 1975 Acct:[id number] Age/Sex: 47 / F Adm Date: 3 Loc: Room: [address] [place] [address] Type: ADM IN Attending Dr: Jeana Martini [...] <Electronically signed by LUPE Castillo> 08/20/22 1314 [facility] Work Phone: [phone]) 174-614203-29-2023 Consult note Author Lawrence Kim [facility] August 20, 2022 10:27amNote Date/TimeMarch 2022 10:26[place] [address] Infect. Disease Consult Note Signed Patient: Addie Jean Baptiste MR#: [id number] : 1975 Acct:[id number] Age/Sex: 47 / F Adm Date: 3 Loc: Room: [address] [place] [address] Type: ADM INOo Attending Dr: Jeana Martini [...] me she was hospitalized in July at [place] for 4 days for this. She apparently [...] negative unless noted below or in HPI [facility] Attestation Statement: The following information was [...] 5 Mg Tablet) 5 mg PO DAILY [facility] Stop: 08/20/23 09:39 Clonidine [...] % (Auto) 64.7 Lymph % (Auto) 27.3 Ferry % (Auto) 6.0 Eos % (Auto) 1.3 Baso % (Auto) 0.7 Nucleat RBC Rel Count 0.0 Neut # (Auto) 5.5 Lymph # (Auto) 2.3 [place]erry # (Auto) 0.5 Eos # (Auto) 0.1 [...] Color Urine Appearance Urine pH Ur Specific [place] Urine Protein Urine Glucose (UA) Urine Ketones [...] MPV Neut % (Auto) Lymph % (Auto) [place] % (Auto) Eos % (Auto) Baso % (Auto) Nucleat RBC Rel Count Neut # (Auto) Lymph # (Auto) [place] # (Auto) Eos # (Auto) Baso # [...] Appearance Clear Urine pH 6.5 Ur Specific [place] 1.017 Urine Protein 100 H Urine Glucose [...] % (Auto) 68.9 Lymph % (Auto) 22.6 [place]erry % (Auto) 6.9 Eos % (Auto) 1.1 Baso % (Auto) 0.5 Nucleat RBC Rel Count 0.2 Neut # (Auto) 6.2 Lymph # (Auto) 2.0 [place]erry # (Auto) 0.6 Eos # (Auto) 0.1 [...] Color Urine Appearance Urine pH Ur Specific [place] Urine Protein Urine Glucose (UA) Urine Ketones [...] MPV Neut % (Auto) Lymph % (Auto) [place] % (Auto) Eos % (Auto) Baso % (Auto) Nucleat RBC Rel Count Neut # (Auto) Lymph # (Auto) [place] # (Auto) Eos # (Auto) Baso # [...] Color Urine Appearance Urine pH Ur Specific [place] Urine Protein Urine Glucose (UA) Urine Ketones [...] MPV Neut % (Auto) Lymph % (Auto) [place] % (Auto) Eos % (Auto) Baso % (Auto) Nucleat RBC Rel Count Neut # (Auto) Lymph # (Auto) [place] # (Auto) Eos # (Auto) Baso # [...] Color Urine Appearance Urine pH Ur Specific [place] Urine Protein Urine Glucose (UA) Urine Ketones [...] <Electronically signed by MD Lawrence Kim> 08/20/22 [facility] Work Phone: 1(967) 761-841903-29-2023 Progress note Author Jeana Martini [facility] August 20, 2022 9:48amNote Date/TimeMarch 2022 9:48[place] [address] Hospitalist Progress Note Signed Patient: Addie Jean Baptiste MR#: [id number] : 1975 Acct:[id number] Age/Sex: 47 / F Adm Date: 3 Loc: Room: [address] [place] [address] Type: ADM INOo Attending Dr: Jeana Martini [...] place, time and person, morbidly obese HEENT: [place] conjunctiva and NL buccal mucosa Neck: Supple, [...] <Electronically signed by Jeana Martini MD> 08/20/22947 [facility] Work Phone: 1(843) 563-422403-29-2023 History and physical note Author Ezekiel Mathew [facility] March 29th, 2023 3:56amNote Date/TimeMarch 2022 3:56[place] [address] Hospitalist H&P Signed Patient: Addie Jean Baptiste MR#: [id number] : 1975 Acct:[id number] Age/Sex: 47 / F Adm Date: 3 Loc: Room: [address] [place] [address] Type: ADM INOo Attending Dr: Ezekiel Mathew [...] % (Auto) 27.3 % (.) 08/20/22 00:19 Ferry % (Auto) 6.0 % (.) 08/20/22 00:19 Eos % (Auto) 1.3 % (.) 08/20/22 00:19 Baso % (Auto) 0.7 % (.) 08/20/22 00:19 Nucleat RBC Rel Count 0.0 /100 WBC (0-0.5) 08/20/22 00:19 Neut # (Auto) 5.5 x10E3/uL (1.8-7.7) 08/20/22 00:19 Lymph # (Auto) 2.3 x10E3/uL (1.00-4.8) 08/20/22 00:19 Ferry # (Auto) 0.5 x10E3/uL (0.0-0.8) 08/20/22 00:19 [...] pH 6.5 (5.0-9.0) 08/20/22 01:07 Ur Specific [place] 1.017 (1.001-1.030) 08/20/22 01:07 Urine Protein 100 [...] She states that she does have a director medical science with Dr. Box. Since his partner Dr. [...] signed by Ezekiel Mathew DO> 08/20/22 0356 [facility] Work Phone: [phone]) 615-690803-28-2023 Hospital Discharge instructions Patient Education 08/19/2022 20:32:56 [...] and water are not available, use hand polysomnographic technologist. ?Change your dressing as told by your [...] antibiotic even if your condition improves. Take hifq-kev-ckhebik and prescription medicines only as told by [...] 02/17/2009 Document Revised: 08/29/2019 Document Reviewed: 11/25/2016 [employer] Patient Education 2020 [employer] 08/19/2022 20:32:56 Type 2 Diabetes Mellitus, Self Care, Adult, Fqdh-wt-Vpiw Type 2 Diabetes Mellitus, Self Care, Adult [...] canola oil. Meet with a fast food sales assistant (dietitian). He or she can help you [...] for cuts, bruises, redness, blisters, or sores. [place] your teeth and gums two times a day. Floss one or more times a day. Go to the dentist one or more times every 6 months. Stay at a healthy weight. General instructions Take nzrp-fsl-dvtgykg and prescription medicines only as told by your doctor. Share your diabetes care plan with: ?Your work or school. ?People you live with. Carry a card or wear jewelry that says you have diabetes. Keep all follow-up visits as told by your doctor. This is important. Questions to ask your doctor Do I need to meet with a community nutrition educator? Where can I find a support group for people with diabetes? Where to find more information To learn more about diabetes, visit: [place] [employer]: www.diabetes.org [place] [employer] Diabetes Educators: www.diabeteseducator.org Summary When [...] 09/01/2016 Document Revised: 11/01/2018 Document Reviewed: 06/13/2016 [employer] Patient Education 2020 [employer]. Follow Up Care 08/19/2022 17:03:41 With:Pool Heath Address: [place] [address]- [employer] (1) When:08/22/2022 20:16:55 [facility]03-28-2023 Evaluation + Plan note Diagnostic Tests Pending * Blood Culture Charcoal 08/19/22 * Blood Culture Charcoal 08/19/22 * UA With Cult Reflex 08/19/22 * Wound Culture 08/19/22 Future Scheduled Tests Laboratory* Fecal WBC Lactoferrin 10/30/21 * Enteric Panel by PCR 10/30/21 Radiology* NM Myocardial Spect Rest/Stress 1 Day 12/16/21 * Echo Transthoracic Complete 09/03/21 [facility]01-09-2023 Hospital Discharge instructions Patient Education 06/02/2022 20:35:11 Seizure, Adult, Uhzw-md-Souv Seizure, Adult A seizure is a sudden [...] Follow these instructions at home: Medicines Take kpcc-vrc-flsbipb and prescription medicines only as told by [...] [place] ask your local DMV (department of [employer]) when you can drive. Get plenty of [...] 10/27/2008 Document Revised: 07/29/2019 Document Reviewed: 07/29/2019 [employer] Patient Education 2020 [employer]you. 06/02/2022 20:35:11 Abdominal Pain, Adult, Fhei-jc-Temq Abdominal Pain, Adult Many things can cause belly (abdominal) pain. Most times, belly pain is not dangerous. Many cases of belly pain can be watched and treated at home. Sometimes, though, belly pain is serious. Your doctor will try to find the cause of your belly pain. Follow these instructions at home: Medicines Take sqxv-qvx-vkeuojf and prescription medicines only as told by [...] your belly pain for any changes. Take iouj-xhx-mktrjfl and prescription medicines only as told by [...] 10/27/2008 Document Revised: 09/19/2019 Document Reviewed: 09/19/2019 [employer] Patient Education 2020 ibeatyou. Follow Up Care 06/02/2022 15:49:02 With:Pool Heath Address: [address] [place] [id number] Business (1) When:06/05/2022 20:05:40 Comments:Take your medications as prescribed. Please follow-up with your primary care doctor in addition to your neurologist for further evaluation management. Please return to ED for any new or worsening symptoms. [facility]01-09-2023 Evaluation + Plan noteExtracted from: Title:ED [...] 12/16/21 * Echo Transthoracic Complete 09/03/21 [facility]12-22-2022 Hospital Discharge instructions Patient Education 05/15/2022 16:59:08 Paronychia, Fbpa-kq-Oamr Paronychia Paronychia is an infection of the [...] cannot use soap and water, use hand polysomnographic technologist. ?Change your bandage as told by your doctor. If you had a fluid-filled bump and your doctor drained it, check the area every day for signs of infection. Check for: ?Redness, swelling, or pain. ?Fluid or blood. ?Warmth. ?Pus or a bad smell. Medicines Take avae-nhm-mdhnmmc and prescription medicines only as told by [...] ?Wear gloves if your hands might touch industrial psychology teacher or chemicals. ?Avoid injuring your nails or [...] 04/29/2010 Document Revised: 05/28/2018 Document Reviewed: 05/24/2018 [employer] Patient Education 2020 ibeatyou. Follow Up Care 05/15/2022 16:12:54 With:Pool Heath Address: [address] [place] [id number] Business (1) When:Within 3 Day(s) [facility]12-22-2022 Evaluation + Plan noteExtracted from: Title:ED [...] 12/16/21 * Echo Transthoracic Complete 09/03/21 [facility]11-16-2022 Evaluation + Plan noteExtracted from: Title:Discharge [...] QID, PRN ergocalciferol 50,000 intl units Cap, 96887 International_Unit= 1 cap(s), Oral, q7day Keppra 250 [...] SAMUEL Jaimes Within 2 to 4 weeks [address] [place] [address]- Additional Instructions: Radha Dias DO Within 2 to 4 days [address] [place] [address]- Additional Instructions: Diabetes Mellitus and Nutrition, Adult [...] Oral, Daily ergocalciferol 50,000 intl units Cap, 32986 International_Unit= 1 cap(s), Oral, q7day insulin glargine [...] SAMUEL Jaimes Within 2 to 4 weeks [address] [place] [address]- Additional Instructions: Radha Dias DO Within 2 to 4 days [address] [place] [address]- Additional Instructions: Diabetes Mellitus and Nutrition, Adult [...] of symptom onset she was evaluated at [facility] and had a stroke work-up, results of which are unclear. CT head here does not show any obvious areas of subacute ischemia. Could also consider lumbar radiculopathy as a potential explanation given her known lumbar spondylosis. Nondermatomal sensory loss and nonmyotomal pattern of weakness. Very questionable effort. 3. Chronic diabetic polyneuropathy. PLAN: 1. Obtaining hospital records from [facility] to ensure they looked [...] were abnormal. An additional EEG will not slubber frame changer. 1. DKA (diabetic ketoacidosis) (E11.10: Type [...] of symptom onset she was evaluated at [facility] and had a stroke work-up, results of which are unclear. CT head here does not show any obvious areas of subacute ischemia. Could also consider lumbar radiculopathy as a potential explanation given her known lumbar spondylosis. Nondermatomal sensory loss and nonmyotomal pattern of weakness. 3. Chronic diabetic polyneuropathy. PLAN: 1. Obtaining hospital records from [facility] 2. Continue the Keppra [...] were abnormal. An additional EEG will not slubber frame changer. 1. DKA (diabetic ketoacidosis) (E11.10: Type [...] 2 diabetes mellitus with ketoacidosis without coma) [place] to be mild versus nonketotic hyperosmolar state [...] deficits) Patient states she was hospitalized at [facility] with right leg weakness and numbness 3 weeks ago. Curiously she states she had been on aspirin previously and there was no change in her therapy. We will obtain records from [facility] in regards to her [...] but [facility] denies any recent discharge [...] Level myStation Chronic Obstructive Pulmonary Disease COPD (ADRIANE:[id number]) Notify Provider Vital Signs Notify Provider Vital [...] 12/16/21 * Echo Transthoracic Complete 09/03/21 [facility]11-14-2022 Hospital Discharge instructions Patient Education 04/07/2022 [...] you work with a diet and nutritional services host (dietitian) tomake a meal plan that is [...] care provider. Work with a counselor or community nutrition educator to identify strategies to manage stress and any emotional and social challenges. Questions to ask a health care provider Do I need to meet with a community nutrition educator? Do I need to meet with a dietitian? What number can I call if I have questions? When are the best times to check my blood glucose? Where to find more information: [place] Diabetes Association: diabetes.org Academy of Nutrition and Dietetics: www.eatright.org National [place] of Diabetes and Digestive and Kidney Diseases (NIH): www.niddk.nih.gov Summary A healthy meal plan will help you control your blood glucose and maintain a healthy lifestyle. Working with a diet and nutritional services host (dietitian) can help you make a meal [...] 02/05/2006 Document Revised: 04/23/2018 Document Reviewed: 06/15/2017 [employer] Patient Education 2020 ibeatyou. 04/07/2022 07:24:34 Diabetes Mellitus and Foot Care Diabetes Mellitus and Foot Care Foot care is an important part of your health, especially when you have diabetes. 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 Break more easily. Heal more slowly. [...] 05/08/2001 Document Revised: 06/23/2018 Document Reviewed: 06/12/2017 [employer] Patient Education 2020 ibeatyou. 04/07/2022 07:24:32 Diabetes Mellitus and Exercise Diabetes [...] Your health care provider or certified nurse aide can help you make a plan for [...] Your health care provider or certified nurse aide can help you make a plan for [...] 07/31/2004 Document Revised: 12/03/2017 Document Reviewed: 10/20/2016 [employer] Patient Education 2020 ibeatyou. Follow Up Care 04/06/2022 20:30:13 With:Polo Bo MD, NEU Address: [address] [place] [address]- [facility] (1) When:05/01/2022 12:40:00 With:Radha Dias DO Address: [address] , [facility] [address] [place] [address] When:04/23/2022 12:45:00 [facility]10-06-2022 Hospital Discharge instructions Patient Education 02/27/2022 17:35:47 Nonspecific Chest Pain, Adult, Mvbr-kq-Suap Nonspecific Chest Pain Chest pain can be [...] Follow these instructions at home: Medicines Take wapy-ljd-uyywquj and prescription medicines only as told by [...] a heart-healthy diet. A diet and nutritional services host (dietitian) can help you to learn healthy [...] 10/27/2008 Document Revised: 11/11/2018 Document Reviewed: 11/11/2018 [employer] Patient Education 2020 ibeatyou. 02/27/2022 17:35:47 Seizure, Adult, Kbyd-pa-Ldhq Seizure, Adult A seizure is a sudden [...] Follow these instructions at home: Medicines Take qrlp-jus-ghkfqol and prescription medicines only as told by [...] [place]., ask your local DMV (department of [employer]) when you can drive. Get plenty of [...] 10/27/2008 Document Revised: 07/29/2019 Document Reviewed: 07/29/2019 [employer] Patient Education 2020 [employer] Follow Up Care 02/27/2022 11:56:29 With:[facility] with [facility] Address:Unknown When: Unknown With:Radha Dias Address: [address] , [facility] [address] [place] [address]- Business (1) When:Within 3 Day(s) [facility]10-06-2022 Evaluation + Plan noteExtracted from: Title:ED [...] BID, # 60 tab(s), Refills(s) 0, Pharmacy: [facility], 157, cm, 02/27/22 12:02:00 [...] 12/16/21 * Echo Transthoracic Complete 09/03/21 [facility]09-30-2022 Hospital Discharge instructions Patient Education 02/21/2022 [...] and water are not available, use hand polysomnographic technologist. Keep the wound clean and dry. If [...] falls off the skin. General instructions Take istd-xek-cbxhvnu and prescription medicines only as told by [...] 05/11/2006 Document Revised: 07/09/2018 Document Reviewed: 05/31/2018 [employer] Patient Education 2020 [email or web address] Follow Up Care 02/21/2022 14:51:18 With:Radha Dias Address: [address], [facility] [place] [address] [facility] (1) When:02/24/2022 15:15:47 Comments:Follow-up with your primary care provider in 3 to 5 days. If symptoms worsen, do not improve, or new symptoms arise please report back to emergency department for further evaluation. Sutures to be removed in 10 days. [facility]09-02-2022 Hospital Discharge instructions Patient Education 01/24/2022 [...] water added (diluted fruit juice). Eat bland, natj-pn-puvadj foods in small amounts as you are able. These foods include bananas, applesauce, rice, lean meats, toast, and crackers. Avoid fluids that contain a lot of sugar or caffeine, such as energy drinks, sports drinks, and soda. Avoid alcohol. Avoid spicy or fatty foods. General instructions Take prwx-fci-lhotwnp and prescription medicines only as told by your health care provider. Drink enough fluid to keep your urine pale yellow. Wash your hands often using soap and water. If soap and water are not available, use hand polysomnographic technologist. Make sure that all people in your [...] eating and drinking to prevent dehydration. Take szbp-euy-onhfthh and prescription medicines only as told by [...] 05/11/2006 Document Revised: 09/02/2019 Document Reviewed: 10/19/2018 [employer] Patient Education 2020 ibeatyou. 01/24/2022 14:32:12 Diarrhea, Adult Diarrhea, Adult Diarrhea [...] oral rehydration solution (ORS). This is an hgqm-sbj-ygqdegp medicine that helps return your body to [...] drinks, sports drinks, and soda. Eat bland, mxog-jk-yjfnit foods in small amounts as you are able. These foods include bananas, applesauce, rice, lean meats, toast, and crackers. Avoid alcohol. Avoid spicy or fatty foods. Medicines Take fbng-bdu-fqxjglq and prescription medicines only as told by your health care provider. If you were prescribed an antibiotic medicine, take it as told by your health care provider. Do notstop using the antibiotic even if you start to feel better. General instructions Wash your hands often using soap and water. If soap and water are not available, use a hand polysomnographic technologist. Others in the household should wash their [...] soap and water are not available, usehand polysomnographic technologist. Contact a health care provider if your diarrhea gets worse or you have new symptoms. Get help right away if you have signs of dehydration. This information is not intended to replace advice given to you by your health care provider. Make sure you discuss any questions you have with your health care provider. Document Released: 05/01/2003 Document Revised: 09/27/2019 Document Reviewed: 10/15/2018 [employer] Patient Education 2020 ibeatyou. 01/24/2022 14:32:12 Acute Pain, Adult Acute Pain, [...] Follow these instructions at home: Medicines Take eyfy-jpl-fpxqupo and prescription medicines only as told by [...] pain is severe. ?Do not take other erof-tgm-vpoajxu pain medicines in addition to prescription pain [...] grains, and fresh fruits and vegetables. ?Take dkbe-tlb-nxlougi or prescription medicines. ?Limit foods that are [...] or you are no longer ill. Take pquu-ulo-vgnaycs and prescription medicines only as told by [...] 05/25/2016 Document Revised: 09/26/2019 Document Reviewed: 09/26/2019 [employer] Patient Education 2020 [employer] Follow Up Care 01/24/2022 10:45:45 With:Radha Dias Address: [address], [facility] [address] [place] [address]- [facility] (1) When:01/27/2022 14:08:11 [facility]08-18-2022 Hospital Discharge instructions Patient Education 01/09/2022 [...] exercise. Managing pain, stiffness, and swelling Take pmhs-axa-eklrxqd and prescription medicines only as told by [...] 05/11/2006 Document Revised: 04/23/2018 Document Reviewed: 06/10/2017 [employer] Patient Education 2020 ibeatyou. 01/09/2022 17:03:20 Chest Wall Pain Chest Wall [...] are safe for you. General instructions Take znyc-gof-aivlgon and prescription medicines only as told by [...] 05/11/2006 Document Revised: 11/11/2018 Document Reviewed: 11/11/2018 [employer] Patient Education 2020 ibeatyou. Follow Up Care 01/09/2022 12:14:58 With:Kirk Abbott Address: [address] [place] [address]- [facility] (1) When:1 to 2 weeks Comments:Call [...] scheduling to schedule a 2-day stress test. Telephonic Rn evaluated you during your hospital stay and they cleared you for discharge. Please follow-up with verification manager after stress test is complete. Please do not delay the stress test any further. Keep taking the medications as you are taking as we are not changing anything.[facility]. [facility] Evaluation + Plan noteExtracted from: Title:Consult [...] Kirk Abbott Within 1 to [address] [place] [id number] [facility] (1) Additional Instructions: Call for followup [...] scheduling to schedule a 2-day stress test. Telephonic Rn evaluated you during your hospital stay and they cleared you for discharge. Please follow-up with verification manager after stress test is complete. Please do not delay the stress test any further. Keep taking the medications as you are taking as we are not changing anything. Dr. Juan Gonzalez Hospitalist at [facility] Musculoskeletal Pain Chest Wall Pain Extracted from:Title:Admission [...] made to ensure accuracy, however, inadvertently computerized complex case manager mistakes may be present. Dr. Juan Gonzalez Hospitalist at [facility] Extracted from:Title:ED NoteAuthor:Jose Miguel Burciaga, Bridgett HDate:01/09/22 [...] 12/16/21 * Echo Transthoracic Complete 09/03/21 [facility]07-21-2022 Hospital Discharge instructions Patient Education 12/12/2021 [...] 06/18/2005 Document Revised: 04/23/2018 Document Reviewed: 08/06/2017 [employer] Patient Education 2020 ibeatyou. 12/12/2021 17:14:19 BMI for Adults BMI for [...] height. This can be done either in [place] ([place] or metric measurements. Note that charts are available to help you find your BMI quickly and easily without having to do these calculations yourself. To calculate your BMI in [place] ([place] measurements, your health care provider will: [...] medical problems. BMI can be measured using [place] measurements or metric measurements. To interpret your [...] 01/20/2005 Document Revised: 04/23/2018 Document Reviewed: 03/24/2018 [employer] Patient Education 2020 ibeatyou. 12/12/2021 17:04:18 Lactose Intolerance, Adult Lactose Intolerance, [...] you eat milk products. Lactase tablets are naam-lyz-ruygqzb medicines that help to improve lactose digestion. [...] contain: ?Lactose. ?Milk solids. ?Casein. ?Whey. Take find-grv-ocydugv and prescription medicines (including lactase tablets) only as told by your health care provider. If you stop eating and drinking dairy products (eliminate dairy from your diet), make sure to get enough protein, calcium, and vitamin D from other foods. Work with your health care provider or a diet and nutritional services host (dietitian) to make sure you get enough [...] 05/11/2006 Document Revised: 04/23/2018 Document Reviewed: 12/25/2017 [employer] Patient Education 2020 ibeatyou. Follow Up Care 12/12/2021 12:11:17 With:Riccardo HENDERSON Breanna R Address: When: only if needed [facility] 07-17-2022 Hospital Discharge instructions [...] hard liquor (44 mL). General instructions Take eoxp-rbc-vhzpcfv and prescription medicines only as told by your health care provider. Practice techniques for relaxation and managing anxiety at times you are not challenged by social anxiety. Return to social activities using techniques you have learned, as you feel ready to do so. Avoid caffeine and certain itnv-tzt-woaschs cold medicines. These may make you feel worse. Ask yourpharmacists which medicines to avoid. Keep all follow-up visits as told by your health care provider. This is important. Where to find more information National [place] on Mental Illness (AVA): https://www.ava.org Social Anxiety [...] 04/09/2006 Document Revised: 10/12/2019 Document Reviewed: 10/12/2019 [employer] Patient Education 2020 [employer] 12/08/2021 14:29:40 Seizure, Adult Seizure, Adult [...] Follow these instructions at home: Medicines Take cmmv-xcm-lkfjega and prescription medicines only as told by [...] check with your local DMV (department of [employer]) to find out aboutlocal driving laws. Each [...] medicines are used to treat seizures. Take vyqb-ign-eftggbs and prescription medicines only astold by your health care provider. This information is not intended to replace advice given to you by your health care provider. Make sure you discuss any questions you have with your health care provider. Document Released: 05/08/2001 Document Revised: 07/29/2019 Document Reviewed: 07/29/2019 [employer] Patient Education 2020 ibeatyou. Follow Up Care 12/08/2021 09:53:20 With:Polo Bo Address: [address] [place] [address]- Business (1) When:12/11/2021 13:49:13 Comments:If you do not have a neurologist, follow-up with Dr. Bo. With:Breanna Gu Address: [address] [facility] [place] [phone] [employer] (1) When:12/11/2021 13:48:53 Comments:Follow-up with your primary care provider in 3 to 5 days. If symptoms worsen, do not improve, or new symptoms arise please report back to emergency department for further evaluation. Follow-up with your neurologist immediately. [facility]06-15-2022 Evaluation + Plan noteExtracted from: Title:Discharge NoteAuthor:Evelyn STEVENS, [facility]ly [facility]isc[facility] Healthcareate:11/06/21 Stable Discharge To, Anticipated II - Home [...] Instructions: Extracted from:Title:Admission H & PAuthor:Evelyn STEVENS, [facility] HospitaldDate:11/04/21 UTI -Failed out patient treatment, will [...] Date:11/14/2021 10:00:00 AM Scheduled Provider:Breanna Gu CNP Location:[facility] Appointment Type: ER/Hospital Follow Up Appointment Date:11/14/2021 12:15:00 PM Scheduled [facility] Type:NM Myocard Spect Multi Rest/Stress-Res Appointment Date:11/14/2021 01:15:00 PM Scheduled Provider: [facility] Type:NM Myocard Spect Multi Rest/Stress - R Appointment Date:11/14/2021 01:45:00 PM Scheduled Provider: [facility] Type:NM Myocard Spect Multi Rest/Stress-Str Appointment Date:11/14/2021 02:45:00 PM Scheduled Provider: [facility] App[facility] Type:NM Myocar Spect Multi Rest/Stress - St Appointment Date:11/20/2021 11:45:00 AM Scheduled Provider:Yuriy Fraser MD [facility]:Cardiology Follow Up () Appointment Date:01/01/2022 02:00:00 PM Scheduled Provider:Breanna Gu CNP Location:[facility] Appointment Type: Open Future Scheduled Tests Laboratory* Fecal WBC Lactoferrin 10/30/21 * HgbA1c 07/29/21 * Enteric Panel by PCR 10/30/21 * Thyroid Stimulating Hormone 07/29/21 Radiology* NM Myocardial Spect Rest/Stress 1 Day 11/14/21 * Echo Transthoracic Complete 09/03/21 [facility] Hospital Discharge instructions Patient Education 11/06/2021 11:33:32 Urinary Tract Infection, Adult, Ywjx-sb-Zpcy Urinary Tract Infection, Adult A urinary tract [...] Follow these instructions at home: Medicines Take uphc-hnn-zzcwfvu and prescription medicines only as told by [...] 10/27/2008 Document Revised: 04/28/2019 Document Reviewed: 11/18/2018 [employer] Patient Education 2020 ibeatyou. 11/06/2021 11:33:32 Urinary Tract Infection, Adult, Gqcj-ic-Dkba Urinary Tract Infection, Adult A urinary tract [...] Follow these instructions at home: Medicines Take qnte-ggf-azlrptv and prescription medicines only as told by [...] 10/27/2008 Document Revised: 04/28/2019 Document Reviewed: 11/18/2018 [employer] Patient Education 2020 ibeatyou. 11/06/2021 11:33:28 Antibiotic Medicine, Adult, Qrph-qe-Itbt Antibiotic Medicine, Adult Antibiotic medicines treat infections [...] 02/17/2009 Document Revised: 06/17/2019 Document Reviewed: 05/13/2017 [employer] Patient Education 2020 [employer] 11/06/2021 11:33:28 Antibiotic Medicine, Adult, Jchl-pe-Seyk Antibiotic Medicine, Adult Antibiotic medicines treat infections [...] 02/17/2009 Document Revised: 06/17/2019 Document Reviewed: 05/13/2017 [employer] Patient Education 2020 [employer]eatyou. Follow Up Care 11/04/2021 11:24:24 With:Breanna Gu Address:Unknown When: Unknown [facility]06-08-2022 Evaluation + Plan note Future Scheduled Tests Laboratory* Fecal WBC Lactoferrin 10/30/21 * HgbA1c 07/29/21 * Enteric Panel by PCR 10/30/21 * Thyroid Stimulating Hormone 07/29/21 Radiology* NM Myocardial Spect Rest/Stress 1 Day 12/16/21 * Echo Transthoracic Complete 09/03/21 [facility] 06-08-2022 Evaluation + Plan note Future Scheduled Tests Laboratory* Fecal WBC Lactoferrin 10/30/21 * Enteric Panel by PCR 10/30/21 Radiology* NM Myocardial Spect Rest/Stress 1 Day 12/16/21 * Echo Transthoracic Complete 09/03/21 [facility] Hospital Discharge instructions Patient Education 10/09/2021 [...] Follow these instructions at home: Medicines Take bsll-vvx-kgplrtk and prescription medicines only as told by [...] and water are not available, use hand polysomnographic technologist. Avoid contact with people who have cold [...] 06/18/2005 Document Revised: 03/24/2019 Document Reviewed: 10/29/2016 [employer] Patient Education 2020 [email or web address] Follow Up Care 10/09/2021 15:26:41 With:Breanna Gu [...] legs, or any new or worsening symptoms. [facility]05-09-2022 Hospital Discharge instructions Patient Education 09/30/2021 [...] food choices, such as grocery stores and [employer]. What are the signs or symptoms? The [...] and how much exercise you get. Take amfo-xov-hofatxi and prescription medicines only as told by [...] 06/18/2005 Document Revised: 01/13/2019 Document Reviewed: 01/13/2019 [employer] Patient Education 2020 [employer]eatyou. 09/30/2021 14:51:20 Hypothyroidism Hypothyroidism Hypothyroidism is when [...] away. Follow these instructions at home: Take hhzb-zsa-gsmjdzl and prescription medicines only as told by [...] 05/11/2006 Document Revised: 04/23/2018 Document Reviewed: 04/21/2018 [employer] Patient Education 2020 [employer]eatyou. 09/30/2021 14:51:16 Preventing Diabetes Mellitus Complications Preventing [...] lead to tooth loss. To prevent this: [place] your teeth twice a day. Floss at [...] 01/27/2012 Document Revised: 08/09/2018 Document Reviewed: 02/07/2017 [employer] Patient Education 2020 [employer]you. 09/30/2021 14:51:12 General Anesthesia, Adult General Anesthesia, [...] including vitamins, herbs, eye drops, creams, and ikmh-lkg-uepxdzp medicines. Any problems you or family members [...] provider tells you to take them. Taking bxct-pdl-dqfzuvc medicines, vitamins, herbs, and supplements. Do not [...] 08/17/2008 Document Revised: 09/28/2018 Document Reviewed: 12/25/2017 [employer] Patient Education 2019 [email or web address]. [facility] 01-21-2022 Evaluation note* Encounter [...] Patient care instructions given in writting by [facility] document. Hyperpia Other Consult note Author Lawrence Kim [facility] August 20, 2022 10:27amNote Date/TimeMarch 2022 10:26am[place] [address] Infect. Disease Consult Note Signed Patient: Addie Jean Baptiste MR#: [id number] : 1975 Acct:[id number] Age/Sex: 47 / F Adm Date: 3 Loc: Room: [address] [place] [address] Type: ADM INOo Attending Dr: Jeana Martini [...] me she was hospitalized in July at [facility] for 4 days for this. She apparently [...] negative unless noted below or in HPI [facility] Attestation Statement: The following information was [...] 5 Mg Tablet) 5 mg PO DAILY [facility] Stop: 08/20/23 09:39 Clonidine HCl (Clonidine 0.1 Mg Tablet) 0.1 mg PO Q4H PRN PRN Reason: Hypertension Stop: 08/20/23 03:40 Dextrose (Dextrose 50% In Water 25 Gm/50 Ml Syringe) 0 gm IV-PUSH PRN PRN PRN Reason: Hypoglycemia Stop: 08/20/23 03:40 Enoxaparin Sodium (Enoxaparin 40 Mg/0.4 Ml Syringe) 40 mg SUBCUT DAILY@1000 [facility] Stop: 08/20/23 09:59 Last [...] % (Auto) 64.7 Lymph % (Auto) 27.3 Ferry % (Auto) 6.0 Eos % (Auto) 1.3 Baso % (Auto) 0.7 Nucleat RBC Rel Count 0.0 Neut # (Auto) 5.5 Lymph # (Auto) 2.3 Ferry # (Auto) 0.5 Eos # (Auto) 0.1 [...] Color Urine Appearance Urine pH Ur Specific [place] Urine Protein Urine Glucose (UA) Urine Ketones [...] MPV Neut % (Auto) Lymph % (Auto) Ferry % (Auto) Eos % (Auto) Baso % (Auto) Nucleat RBC Rel Count Neut # (Auto) Lymph # (Auto) Ferry # (Auto) Eos # (Auto) Baso # [...] Appearance Clear Urine pH 6.5 Ur Specific [place] 1.017 Urine Protein 100 H Urine Glucose [...] % (Auto) 68.9 Lymph % (Auto) 22.6 Ferry % (Auto) 6.9 Eos % (Auto) 1.1 Baso % (Auto) 0.5 Nucleat RBC Rel Count 0.2 Neut # (Auto) 6.2 Lymph # (Auto) 2.0 Ferry # (Auto) 0.6 Eos # (Auto) 0.1 [...] Color Urine Appearance Urine pH Ur Specific [place] Urine Protein Urine Glucose (UA) Urine Ketones [...] MPV Neut % (Auto) Lymph % (Auto) Ferry % (Auto) Eos % (Auto) Baso % (Auto) Nucleat RBC Rel Count Neut # (Auto) Lymph # (Auto) Ferry # (Auto) Eos # (Auto) Baso # [...] Color Urine Appearance Urine pH Ur Specific [place] Urine Protein Urine Glucose (UA) Urine Ketones [...] MPV Neut % (Auto) Lymph % (Auto) Ferry % (Auto) Eos % (Auto) Baso % (Auto) Nucleat RBC Rel Count Neut # (Auto) Lymph # (Auto) Ferry # (Auto) Eos # (Auto) Baso # [...] Color Urine Appearance Urine pH Ur Specific [place] Urine Protein Urine Glucose (UA) Urine Ketones [...] <Electronically signed by MD Lawrence Kim> 08/20/[address] [place] [address] Work Phone: Consult note Author Swapnil Castillo [facility] August 20, 2022 1:14pmNote Date/TimeMarch 2022 1:13pm[place] [address] Podiatry Consult Note Signed Patient: Addie Jean Baptiste MR#: [id number] : 1975 Acct:[id number] Age/Sex: 47 / F Adm Date: 3 Loc: Room: [address] [place] [address] Type: ADM IN Attending Dr: Jeana Martini [...] <Electronically signed by LUPE Castillo> 08/20/22 1314 [facility] Work Phone: Consult note Author Shameka Romero [facility] August 21, 2022 4:02pmNote Date/TimeMarch 2022 4:00pm[place] [address] Vascular Surgery Consult Note Signed Patient: Addie Jean Baptiste MR#: [id number] : 1975 Acct:[id number] Age/Sex: 47 / F Adm Date: 3 Loc: Room: [address] [place] [address] Type: ADM IN Attending Dr: Jeana Martini MD Copies to: Laurent Franco GENERATION MANAGERCheC MD Jeana Robert MD~ HPI Consult HPI [...] date: 08/21/2022 Requesting Physician: Jeana Martini MD [facility] Vaccinated for COVID-19?: Yes Medical History [...] % (Auto) 69.4 Lymph % (Auto) 20.6 [place]erry % (Auto) 7.4 Eos % (Auto) 1.8 Baso % (Auto) 0.8 Nucleat RBC Rel Count 0.0 Neut # (Auto) 5.7 Lymph # (Auto) 1.7 Ferry # (Auto) 0.6 Eos # (Auto) 0.2 [...] MPV Neut % (Auto) Lymph % (Auto) Ferry % (Auto) Eos % (Auto) Baso % (Auto) Nucleat RBC Rel Count Neut # (Auto) Lymph # (Auto) Ferry # (Auto) Eos # (Auto) Baso # [...] <Electronically signed by Shameka Romero MD> 08/21/22 1126 [facility] Work Phone: Discharge summary Author Jeana Martini [facility] August 22, 2022 1:35pmNote Date/TimeMarch 2022 1:30pm[place] [address] Discharge Summary Signed Patient: Addie Jean Baptiste MR#: [id number] : 1975 Acct:[id number] Age/Sex: 47 / F Adm Date: 3 Loc: Room: [address] [place] [address]: Jeana Martini MD Copies to: Laurent Franco GENERATION MANAGERKandi Martini MD~ Providers Date of Discharge: 08/22/22 [...] on intravenous antibiotic Patient was seen by director medical science who recommended and performed bedside incision and [...] place, time and person, morbidly obese HEENT: [place] conjunctiva and NL buccal mucosa Neck: Supple, [...] ask your primary care provider to obtain [facility] records entirely to follow up on all of the abnormal physical, laboratory, and imaging findings thatI have not addressed. Please follow-up with Dr. Romero to evaluate your circulation Please return back to the emergency room or seek medical attention if your symptoms worsen or return. Discharging you from [facility] does not mean that your medical [...] to 2 weeks. Please call for appointment.) [facility] NetworkEnriquetaGaines [Physician] - 08/25/22 10:15 am (Follow-up with your Primary Care Provider, call office to reschedule if needed. ) Documented By: Jeana Martini MD 08/22/22 1325 Signed By: <Electronically signed by Jeana Martini MD> 08/22/22 1335 [facility] Work Phone: Evaluation + Plan note Future Appointments Appointment Date:09/02/2021 02:45:00 PM Scheduled Provider:Milena STEVENS, Kirk Hsu [facility] Type:Cardiology New Patient (FT) Appointment Date:10/30/2021 03:40:00 PM Scheduled Provider:Breanna Gu CNP Location:[facility] Appointment Type: Open Future Scheduled Tests Laboratory* HgbA1c 07/29/21 * Microalbumin Level Urine 07/29/21 * CBC w/ Auto Diff 07/29/21 * Comprehensive Metabolic Panel 07/29/21 * Lipid Panel 07/29/21 * Thyroid Stimulating [facility]ormone [facility] Appointment Date:10/15/2021 01:00:00 PM Scheduled Provider:Nancy GUTIERREZ CNP [facility] Type:Cardiology Follow Up (FT) Appointment Date:10/30/2021 03:40:00 PM Scheduled Provider:Breanna Gu CNP Location:[facility] Appointment Type:FM Open Future Scheduled Tests Laboratory* HgbA1c 07/29/21 * Microalbumin Level Urine 07/29/21 * CBC w/ Auto Diff 07/29/21 * Comprehensive Metabolic Panel 07/29/21 * Lipid Panel 07/29/21 * Thyroid Stimulating Hormone 07/29/21 [facility]ments Appointment Date:09/30/2021 02:00:00 PM Scheduled Provider:Breanna Gu CNP Location:[facility] Appointment Type:FM Open Appointment Date:10/15/2021 01:00:00 PM Scheduled Provider:Nancy GUTIERREZ CNP [facility] Type:Cardiology Follow Up (FT) Appointment Date:10/30/2021 03:40:00 PM Scheduled Provider:Breanna Gu CNP Location:[facility] Appointment Type:FM Open Future Scheduled Tests Laboratory* HgbA1c 07/29/21 * Microalbumin Level Urine 07/29/21 * CBC w/ Auto Diff 07/29/21 * Comprehensive Metabolic Panel 07/29/21 * Lipid Panel 07/29/21 * Thyroid Stimulating Hormone 07/29/21 Radiology* Echo Transthoracic Complete [facility]03/21 [facility]ments Appointment Date:10/15/2021 01:00:00 PM Scheduled Provider:Nancy GUTIERREZ CNP [facility] Type:Cardiology Follow Up (FT) Appointment Date:01/01/2022 02:00:00 PM Scheduled Provider:Breanna Gu CNP Location:[facility] Appointment Type: Open Future Scheduled Tests Laboratory* HgbA1c 09/30/21 * HgbA1c 07/29/21 * Microalbumin Level Urine 07/29/21 * CBC w/ Auto Diff 07/29/21 * Comprehensive Metabolic Panel 07/29/21 * Lipid Panel 07/29/21 * Thyroid Stimulating Hormone 09/30/21 * Thyroid Stimulating Hormone 07/29/21 Radiology* Echo Transthoracic Complete 09/03/21 [facility] Evaluation + Plan note Future Appointments Appointment Date:10/15/2021 01:00:00 PM Scheduled Provider:Nancy GUTIERREZ CNP [facility] Type:Cardiology Follow Up (FT) Appointment Date:01/01/2022 02:00:00 PM Scheduled Provider:Breanna Gu CNP Location:[facility] Appointment Type:FM Open Future Scheduled Tests Laboratory* HgbA1c 07/29/21 * Thyroid Stimulating Hormone 07/29/21 Radiology* Echo Transthoracic Complete [facility]03/21 [facility]ments Appointment Date:10/15/2021 01:00:00 PM Scheduled Provider:Nancy GUTIERREZ CNP [facility] Type:Cardiology Follow Up (FT) Appointment Date:01/01/2022 02:00:00 PM Scheduled Provider:Breanna Gu CNP Location:[facility] Appointment Type:FM Open Future Scheduled Tests Laboratory* HgbA1c 07/29/21 * Thyroid Stimulating Hormone 07/29/21 Radiology* NM Myocardial Spect Rest/Stress 1 Day 10/07/21 * Echo Transthoracic Complete [facility]/03/21 [facility] App[facility]ments Appointment Date:11/14/2021 12:15:00 PM Scheduled Provider: [facility] Type:NM Myocard Spect Multi Rest/Stress-Res Appointment Date:11/14/2021 01:15:00 PM Scheduled Provider: [facility] Appointment Type:NM Myocard Spect Multi Rest/Stress - R Appointment Date:11/14/2021 01:45:00 PM Scheduled Provider: [facility] App[facility] Type:NM Myocard Spect Multi Rest/Stress-Str Appointment Date:11/14/2021 02:45:00 PM Scheduled Provider: [facility] App[facility] Type:NM Myocar Spect Multi Rest/Stress - St Appointment Date:11/20/2021 11:45:00 AM Scheduled Provider:Yuriy Fraser MD [facility] Type:Cardiology Follow Up (FT) Appointment Date:01/01/2022 02:00:00 PM Scheduled Provider:Breanna Gu CNP Location:[facility] Appointment Type:FM Open Diagnostic Tests Pending * Urine Culture 10/30/21 Future Scheduled Tests Laboratory* Fecal WBC Lactoferrin 10/30/21 * HgbA1c 07/29/21 * Enteric Panel by PCR 10/30/21 * Thyroid Stimulating Hormone 07/29/21 Radiology* NM Myocardial Spect Rest/Stress 1 Day 11/14/21 * Echo Transthoracic Complete 09/03/21 [facility]ments Appointment Date:11/20/2021 11:45:00 AM Scheduled Provider:Yuriy Fraser MD [facility] Type:Cardiology Follow Up (FT) Appointment Date:12/02/2021 10:00:00 AM Scheduled Provider:Breanna Gu CNP Location:[facility] Appointment Type: ER/Hospital Follow Up Appointment Date:01/01/2022 02:00:00 PM Scheduled Provider:Breanna Gu CNP Location:[facility] Appointment Type: Open Future Scheduled Tests Laboratory* Fecal WBC Lactoferrin 10/30/21 * HgbA1c 07/29/21 * Enteric Panel by PCR 10/30/21 * Thyroid Stimulating Hormone 07/29/21 Radiology* Echo Transthoracic Complete 09/03/21 [facility] App[facility]ments Appointment Date:12/02/2021 10:00:00 AM Scheduled Provider:Breanna Gu CNP Location:[facility] Appointment Type: ER/Hospital Follow Up Appointment Date:01/01/2022 02:00:00 PM Scheduled Provider:Breanna Gu CNP Location:[facility] Appointment Type: Open Future Scheduled Tests Laboratory* Fecal WBC Lactoferrin 10/30/21 * HgbA1c 07/29/21 * Enteric Panel by PCR 10/30/21 * Thyroid Stimulating Hormone 07/29/21 Radiology* Echo Transthoracic Complete [facility]/03/21 [facility]ments Appointment Date:12/16/2021 08:30:00 AM Scheduled Provider: [facility] Type:NM Myocard Spect Multi Rest/Stress-Res Appointment Date:12/16/2021 09:30:00 AM Scheduled Provider: [facility] App[facility] Type:NM Myocard Spect Multi Rest/Stress - R Appointment Date:12/16/2021 10:00:00 AM Scheduled Provider: [facility] App[facility] Type:NM Myocard Spect Multi Rest/Stress-Str Appointment Date:12/16/2021 11:00:00 AM Scheduled Provider: Location:[facility] Appointment Type:NM Myocar Spect Multi Rest/Stress - St Appointment Date:01/01/2022 02:00:00 PM Scheduled Provider:Breanna Gu CNP Location:[facility] Appointment Type: Open Future Scheduled Tests Laboratory* Fecal WBC Lactoferrin 10/30/21 * HgbA1c 07/29/21 * Enteric Panel by PCR 10/30/21 * Thyroid Stimulating Hormone 07/29/21 Radiology* NM Myocardial Spect Rest/Stress 1 Day 12/16/21 * Echo Transthoracic Complete 09/03/21 [facility] Evaluation + Plan note Future Appointments Appointment Date:01/01/2022 02:00:00 PM Scheduled Provider:Beranna Gu CNP Location:[facility] Appointment Type:FM Open Future Scheduled Tests Laboratory* Fecal WBC Lactoferrin 10/30/21 * HgbA1c 07/29/21 * Enteric Panel by PCR 10/30/21 * Thyroid Stimulating Hormone 07/29/21 Radiology* NM Myocardial Spect Rest/Stress 1 Day 12/16/21 * Echo Transthoracic [facility]03[facility]21 [facility] Diagnosis Other insomnia- Primary documented in this encounter [facility] Work Phone: evaluation note* Diagnosis Onset Date Resolution Status Diabetic foot infection acuteHypertensionacuteHypokalemiaacuteHypomagnesemiaacute [facility] Work Phone: Evaluation note* Diagnosis Onset Date Resolution Status Abscess of toenail on left foot acuteCellulitis of left [id number] foot infection acuteHypertensionacuteHypokalemiaacuteHypomagnesemiaacuteHypophosphatemiaacute OnychocryptosisacutePeripheral vascular diseaseacuteToe infectionacuteToe pain, leftacuteDiabeteschronicNicotine dependencechronic [facility] Work Phone: Evaluation noteNo [facility] Other Evaluation note* Diagnosis Weakness of lower extremity, unspecified laterality- Primary Urinary incontinence, unspecified type Saddle anesthesia Disturbance of skin sensation Type 2 diabetes mellitus with diabetic neuropathy, unspecified whether fci insulin use ([facility]) documented in this encounter [facility] note* Diagnosis Right knee pain, unspecified chronicity- Primary documented in this encounter [facility] note* Diagnosis Strain of right hamstring, initial encounter- Primary Strain of right knee, initial encounter Other specified diabetes mellitus with other specified complication, unspecified whether fci insulin use ([facility]) documented in this encounter [facility] note* Diagnosis Chest pain, unspecified type- Primary Chest pain, unspecified type Flank pain Abdominal pain, unspecified site Type 2 diabetes mellitus with other specified complication, unspecified whether fci insulin use ([facility]) Seizure ([facility]) Other convulsions documented in this encounter [facility] note* Diagnosis Chest pain- Primary Unspecified chest pain Chest pain, unspecified type Diabetic peripheral neuropathy (HCC) Type II or unspecified type diabetes mellitus with neurological manifestations, not stated as uncontrolled Seizure disorder ([facility]) Unspecified epilepsy without mention of intractable epilepsy Morbid obesity (HCC) Morbid obesity Seizure (HCC) Other convulsions Seizures (HCC) Other convulsions Bipolar [address] disorder ([facility]) Diabetic infection of left foot ([facility]) Metabolic acidosis, normal anion gap (NAG) Acidosis SOLO (acute kidney injury) ([facility]) Abscess of chin Cellulitis and abscess of face Pacemaker Cardiac pacemaker in situ History of MRSA infection Hypertension, unspecified type Cellulitis of chin Cellulitis and abscess of face documented in this encounter [facility] note* Diagnosis Non-recurrent acute suppurative otitis media of left ear without spontaneous rupture of tympanic membrane- Primary Type 2 diabetes mellitus with diabetic polyneuropathy, with long-term current use of insulin ([facility]) Diabetic ulcer of right foot associated with type 2 diabetes mellitus, unspecified part of foot, unspecified ulcer stage ([facility]) Diabetic peripheral neuropathy ([facility]) Type II or unspecified type diabetes mellitus with neurological manifestations, not stated as uncontrolled Hypertensive urgency Chronic obstructive pulmonary disease, unspecified COPD type (HCC) Chronic chest pain Unspecified chest pain S/P placement of cardiac pacemaker Hypothyroidism, unspecified type Seizures (HCC) Other convulsions Bipolar 1 disorder ([facility]) Insomnia, unspecified type Gastroesophageal reflux disease, [...] both lower extremities [facility] Pain of left lower leg- Primary Pain in limb [facility] Muscle spasms of both [...] Right foot ulcer, with fat layer exposed ([facility])- Primary [facility] Diagnosis Chronic pain syndrome- Primary Muscle spasms of both lower extremities Urinary incontinence, unspecified type Chronic nonintractable headache, unspecified headache type Chronic obstructive pulmonary disease, unspecified COPD type (HCC) Type 2 diabetes mellitus with diabetic polyneuropathy, with long-term current use of insulin ([facility]) Diabetic peripheral neuropathy ([facility]) Type II or unspecified type diabetes mellitus with neurological manifestations, not stated as uncontrolled Diabetic ulcer of right foot associated with type 2 diabetes mellitus, unspecified part of foot, unspecified ulcer stage ([facility]) Hypothyroidism, unspecified type Primary hypertension Unspecified essential hypertension Hypercholesterolemia Pure hypercholesterolemia S/P placement of cardiac pacemaker Seizures ([facility]) Other convulsions Bipolar [address] disorder ([facility]) Gastroesophageal reflux disease, unspecified whether esophagitis present Vitamin D deficiency Vitamin B12 deficiency Other B-complex deficiencies Cigarette nicotine dependence without complication [facility] Diagnosis Muscle spasms of both lower extremities [facility]* Diagnosis Bipolar 1 disorder ([facility])- Primary Post traumatic stress disorder (PTSD) Generalized anxiety disorder Insomnia, unspecified type [facility]* Diagnosis Primary hypertension- Primary Unspecified essential hypertension Subacute cough RUQ abdominal pain Abdominal pain, right upper quadrant Type 2 diabetes mellitus with diabetic polyneuropathy, with long-term current use of insulin ([facility]) Family history of pulmonary fibrosis [facility] Diagnosis Subacute cough- Primary Family history of pulmonary fibrosis [facility]* Diagnosis Vision loss of left eye- [...] insufficiency, unspecified [facility] Diagnosis Muscle spasms of both lower extremities Type 2 diabetes mellitus with diabetic polyneuropathy, with long-term current use of insulin ([facility]) [facility] [...] polyneuropathy, with long-term current use of insulin ([facility]) [facility] [...] polyneuropathy, with long-term current use of insulin ([facility]) [facility]* Diagnosis Diabetic ulcer of right foot associated with type 2 diabetes mellitus, unspecified part of foot, unspecified ulcer stage ([facility])- Primary Primary hypertension Unspecified essential hypertension SOLO (acute kidney injury) ([facility]) Hypothyroidism, unspecified type Hyperlipidemia, unspecified hyperlipidemia [...] [facility]* Diagnosis Bipolar 1 disorder ([facility]) Insomnia, unspecified type documented in this [...] polyneuropathy, with long-term current use of insulin ([facility]) Chronic obstructive pulmonary disease, unspecified COPD type ([facility]) Hypothyroidism, unspecified type History of stroke Transient ischemic attack (TIA), and cerebral infarction without residual deficits Seizures ([facility]) Other convulsions Hypercholesterolemia Pure hypercholesterolemia Chronic pain syndrome Urinary incontinence, unspecified type Bipolar 1 disorder ([facility]) Insomnia, unspecified type Gastroesophageal reflux disease, [...] myalgia and myositis [facility]* Diagnosis Cellulitis of chin- Primary Cellulitis [...] of left foot documented [facility]* Diagnosis Cellulitis of chin- [...] whether esophagitis present [facility] Diagnosis Cellulitis of chin- Primary Cellulitis [...] Chronic pain syndrome [facility]* Diagnosis Cellulitis of chin- Primary Cellulitis [...] [facility] Work Phone: Evaluation note* Diagnosis Cellulitis [...] appointment- Primary [facility] Diagnosis Cellulitis of chin- Primary Cellulitis and abscess of face Cellulitis Cellulitis and abscess of unspecified site Hyperglycemia Other abnormal glucose Severe sepsis (HCC) Type 2 diabetes mellitus with left diabetic foot infection (HCC) Diabetic infection of left foot (HCC) Abscess of chin Cellulitis and abscess of face Hypertension Unspecified essential hypertension Bipolar 1 disorder ([facility]) Seizures ([facility]) Other convulsions DDD (degenerative disc disease), lumbar Degeneration of lumbar or lumbosacral intervertebral disc Lumbar radiculopathy Thoracic or lumbosacral neuritis or radiculitis, unspecified Chronic pain syndrome [facility] Diagnosis Sudden loss of vision- Primary Sudden visual loss HHS (hypothenar hammer syndrome) Hyperosmolar hyperglycemic state (HHS) [facility] HOSPITAL) Hyperosmolar hyperglycemic state (HHS) ([facility]) SOLO (acute kidney injury) HHS (hypothenar hammer syndrome) documented [facility] encounter [facility]* Diagnosis Cellulitis of [...] or radiculitis, unspecified [facility] Diagnosis Type 2 diabetes mellitus with hyperglycemia, with long-term current use of insulin ([facility])- Primary Encounter for dietary consultation Insulin long-term use ([facility]) Encounter for long-term (current) use of insulin Class 3 severe obesity due to excess calories with serious comorbidity and body mass index (BMI) of45.0 to 49.9 in adult ([facility]) Hyperlipemia, mixed Mixed hyperlipidemia Vitamin D deficiency Primary hypertension Unspecified essential hypertension Encounter for fitting or adjustment of insulin pump Fitting and adjustment of insulin pump [facility] Diagnosis Onset Date Resolution Status Admit Date BMI 50.0-59.9, adult acuteSeptember 2024 9:44amEssential hypertensionacuteSept2024 9:44amMixed hyperlipidemiaacuteSept2024 9:44amMorbid obesity due to excess caloriesacutept2024 9:44amNicotine use disorderacute February 20, 2025 9:44amNoncompliance with medicationsacuteFebruary 20, 2025 9:44amPeripheral vascular diseaseacuteSept2024 9:44amType 2 diabetes mellitus with circulatory disorder, with long-term currentacute February 20, 2025 9:44amBipolar 1 disorderchronicSeptember 2024 9:44am [facility] Work Phone: Evaluation note* Diagnosis [...] lower extremity pain [facility]* Diagnosis Cellulitis of chin- Primary Cellulitis [...] [facility]HealthHistory and physical note Author Ezekiel Mathew [facility] August 20, 2022 3:56amNote Date/TimeMarch 2022 3:56[place] [address] Hospitalist H&P Signed Patient: Addie Jean Baptiste MR#: [id number] : 1975 Acct:[id number] Age/Sex: 47 / F Adm Date: 3 Loc: Room: [address] [place] [address] Type: ADM INOo Attending Dr: Ezekiel Mathew [...] % (Auto) 27.3 % (.) 08/20/22 00:19 [place]erry % (Auto) 6.0 % (.) 08/20/22 00:19 Eos % (Auto) 1.3 % (.) 08/20/22 00:19 Baso % (Auto) 0.7 % (.) 08/20/22 00:19 Nucleat RBC Rel Count 0.0 /100 WBC (0-0.5) 08/20/22 00:19 Neut # (Auto) 5.5 x10E3/uL (1.8-7.7) 08/20/22 00:19 Lymph # (Auto) 2.3 x10E3/uL (1.00-4.8) 08/20/22 00:19 [place]erry # (Auto) 0.5 x10E3/uL (0.0-0.8) 08/20/22 00:19 [...] pH 6.5 (5.0-9.0) 08/20/22 01:07 Ur Specific [place] 1.017 (1.001-1.030) 08/20/22 01:07 Urine Protein 100 [...] She states that she does have a director medical science with Dr. Box. Since his partner Dr. [...] Ezekiel Mathew, DO> 08/20/22 0356 [facility] Work Phone: History general Narrative - Reported* Type Description Date Medical History bipolar Medical HistorydepressionMedical Historycoronary artery diseaseMedical History seizuresMedical CenssqtID0Zehqjbt HistoryHLPMedical HistorypacemakerMedical HistoryMRSAMedical Historyherniated discMedical HistoryHypertentionMedical Historystomach ulcersMedical Historydiabetes type 2Medical Historydiabetic neuropathySurgical Historyankle surgerySurgical HistoryhysterectomySurgical HistorycholecystectomySurgical Historywisdom teethSurgical Historypacemaker Surgical Historyportacath placementHospitalization Historysee above Hospitalization HistoryChest Pain3/2012[facility]Hospitalization HistoryBellev [id number] History Seizures-2018 Hyperpia Other History general Narrative - Reported* Type Description Date Medical History bipolar Medical HistorydepressionMedical Historycoronary artery diseaseMedical History seizuresMedical LglalpkCF4Pgtoxcw HistoryHLPMedical HistorypacemakerMedical HistoryMRSAMedical Historyherniated discMedical HistoryHypertentionMedical Historystomach ulcersMedical Historydiabetes type 2Medical Historydiabetic neuropathyMedical HistoryhypothryoidSurgical Historyankle surgerySurgical HistoryhysterectomySurgical HistorycholecystectomySurgical Historywisdom teeth Surgical HistorypacemakerSurgical Historyportacath placementHospitalization Historysee aboveHospitalization HistoryChest Pain3/2012[facility] HistoryBellkettering health main campushitnmzvr4173Bjrvkxakfmrluqa HistorySeizures-2018Hospitalization Historytoe infection08/2022 Hyperpia Other Hospital course Narrative No data available for this section [facility] No data available for this section [facility] Discharge instructions* Attachments The following attachments cannot be sent through Care Everywhere. * Insomnia (Palauan) * Video: Sleeping Better (Palauan) * Video: Sleep and Your Health (Palauan) * Video: When You're Not Sleeping Well ([place]auan) [facility] Work Phone: Hospital Discharge instructions Additional Instructions Please follow up with your nurse practitioner re: blood sugars and Aicd evaluation. Call Dr. Romero's office to reschedule and to schedule a PST appointment before surgery.[facility] Work Phone: Hospital Discharge instructions* Attachments The following attachments cannot be sent through Care Everywhere. * Toe Amputation: Post-op ([place]auan) documented in this encounterOhioHealthHospital Discharge instructions Additional [...] with any concerns. Thank you for choosing [facility] Urgent Care.[facility] Work Phone: InstructionsNot on filedocumented in this encounter [facility] SystemPatient's home Plan of care [...] Medication education completed today on medlist from located within [facility] medication(s). Patient/caregiver is able to teach back 25% of instruction. 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 Patient/caregiver is able to teach back 25% of instruction. 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 Missed Visit Discipline -Home Health Aide ProblemStart [...] Goal:Hygiene/Safety Scheduled documented in this encounter [facility] of care [facility]* Visit [...] Plan Scheduled documented in this encounter [facility] Plan of care note* Visit Type -ATTENDING PATHOLOGIST Routine Discipline -Halfway ProblemStart DateStatusGoalsInterventions Assess and [...] Management Goal:Pain Completed documented in this [facility]* Visit Type -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 Home Visit Discipline -Home Health Aide ProblemStart [...] Aide Goal:Hygiene/Safety Completed documented in [facility]* Visit Type -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 Home Visit Discipline -Home Health Aide ProblemStart [...] Goal:Hygiene/Safety Completed documented in this encounter [facility] home Plan of care note* Visit Type -THERAPY TECH Routine Visit Discipline -Physical Therapy ProblemStart DateStatusGoalsInterventions [...] prevention as well. documented in this [facility]* Visit [...] getting set up in dose packs from [facility]. 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 Visit Discipline -Home Health Aide ProblemStart [...] Aide Goal:Hygiene/Safety Scheduled documented in this [facility]* Visit [...] Problems Goal:Wound/Incision Scheduled documented in [facility]* Visit Type -THERAPY TECH Missed Visit Discipline -Physical Therapy ProblemStart DateStatusGoalsInterventions [...] Plan Scheduled documented in this encounter [facility] Plan of care note* Visit [...] Plan Scheduled documented in this encounter [facility] Plan of care note* Visit [...] Goal:Wound/Incision Scheduled documented in this encounter [facility] Plan of care note* Visit Type -THERAPY TECH Missed Visit Discipline -Physical Therapy ProblemStart DateStatusGoalsInterventions [...] Care Plan Scheduled documented in this [facility]* Clinical update including pain/vitals/ no meds in home to PCPDr.Shuh on office phone.documented in this encounter [facility]* Clinical update including pain/vitals/ no meds in home to PCPDr.Shuh on office phone.documented in this encounter [facility] Progress [facility]* Clinical update including pain/vitals/ no meds in home to PCPDr.Shuh on office phone.documented in this encounter [facility] Progress [facility]* Clinical update including pain/vitals/ no meds in home to PCPDr.Shuh on office phone.documented in this encounter [facility] Progress note* Per SN SOC: HISTORY OF PRESENT ILLNESS LEADING UP TO HOME CARE ADMISSION (including facility stays and dates): [facility] 03/29-03/30/23 for: Atypical chest pain, resolved Elevated troponin, chronic - to follow up outpatient with cardiology T2DM, uncontrolled Diabetic peripheral neuropathy obesity seizure disorder Side/site of body affected (dominant hand if neuro diagnosis): cardiac Comorbidities with potential to affect the Plan of Care: DM and CAD Additional Disciplines requested: none Disciplines referred and declined by patient/caregiver: agreeable to all ordered services: SN,PT,OT,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 Prior functional level: indpendent with adls/ questionable management of meds as none in home at time of admission/dependent for iadls Current functional level: needs assist with learning meds/disease process Fall Risk: MAHC-10 score 7, 4-10 Patient IS at risk for falls (a score of 6 or greater is a predictor of future falls) Medication Issues: no meds in home, 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 all meds from pharmacy on day of [...] in this encounter [facility]* [facility]Health Clinical Summary Patient s goals for HomeCare: Be stronger What skill(s) will be provided by your discipline: ADL retraining, ther exercises, ther activity Rehab Potential: good HISTORY OF PRESENT ILLNESS LEADING UP TO HOME CARE ADMISSION (including facility stays and dates): [facility] 03/29-03/30/23 for: Atypical chest pain, resolved elevated [...] PT non-billable discharge completed.documented in this encounter [facility] No data available for this section [facility] HospitalProgress note Author Jeana Martini [facility] August 20, 2022 9:48amNote Date/TimeMarch 2022 9:48amElizabeth [place] [id number] Hospitalist Progress Note Signed Patient: Addie Jean Baptiste MR#: [id number] : 1975 Acct:[id number] Age/Sex: 47 / F Adm Date: 3 Loc: Room: [address] [place] [address] Type: ADM INOo Attending Dr: Jeana Martini [...] place, time and person, morbidly obese HEENT: [place] conjunctiva and NL buccal mucosa Neck: Supple, [...] Tablet PO 08/20/23 07:59 1,000 mg BID.WITH.MEALS SMAEER Administration Pantoprazole Sodium 40 mg 08/21/22 09:00 [...] <Electronically signed by Jeana Martini MD> 08/20/2248 [facility] Work Phone: Progress note Author [facility] August 21, 2022 10:10amNote Date/TimeMarch 2022 10:10[place] [address] Hospitalist Progress Note Signed Patient: Addie Jean Baptiste MR#: [id number] : 1975 Acct:[id number] Age/Sex: 47 / F Adm Date: 3 Loc: 3T Room: [address] [place] [address] Type: ADM IN Attending Dr: Jeana Martini [...] place, time and person, morbidly obese HEENT: [place] conjunctiva and NL buccal mucosa Neck: Supple, [...] signed by Jeana Martini MD> 08/21/22 1010 [facility] Work Phone: Progress note Author Lawrence Kim [facility] August 21, 2022 11:22amNote Date/TimeMarch 2022 11:22[place] [address] Infect. Disease Progress Note Signed Patient: Addie Jean Baptiste MR#: [id number] : 1975 Acct:[id number] Age/Sex: 47 / F Adm Date: 3 Loc: Room: [address] [place] [address] Type: ADM IN Attending Dr: Jeana Martini [...] 5 Mg Tablet) 5 mg PO DAILY [facility] Stop: 08/20/23 09:39 Last [...] (50,000 Units) Capsule) 1,250 mcg PO Q7D [facility] Stop: 08/20/23 09:44 Last Admin: 08/20/22 14:44 Dose: Not Given Furosemide (Furosemide 20 Mg Tablet) 20 mg PO DAILY.8A [facility] Stop: 08/20/23 07:59 Last [...] 300 Units/3 Ml Insuln.Pen) 0 units SUBCUT TID.WM.[facility]; Protocol Stop: 08/20/23 11:59 Last Admin: 08/21/22 09:03 Dose: Not Given Levetiracetam (Levetiracetam 250 Mg Tablet) 750 mg PO BID [facility] Stop: 08/20/23 08:59 Last [...] 500 Mg Tablet) 1,000 mg PO BID.WITH.MEALS [facility] Stop: 08/20/23 07:59 Last Admin: 08/21/22 09:00 Dose: 1,000 mg Pantoprazole Sodium (Pantoprazole 40 Mg Tablet.Dr) 40 mg PO DAILY [facility] Stop: 08/21/23 08:59 Last Admin: 08/21/22 09:01 Dose: 40 mg Pregabalin (Pregabalin 150 Mg Capsule) 150 mg PO [facility] Stop: 02/16/23 03:44 Last Admin: 08/20/22 21:12 Dose: 150 mg Quetiapine Fumarate (Quetiapine Fumarate 200 Mg Tablet) 800 mg PO [facility] Stop: 08/20/23 03:59 Last Admin: 08/20/22 21:12 Dose: 800 mg Saccharomyces Boulardii (Saccharomyces Boulardii 250 Mg Capsule) 250 mg PO BID.WITH.MEALS [facility] Stop: 08/20/23 07:59 Last [...] signed by MD Lawrence Kim> 08/21/22 1122 [facility] Work Phone: Progress note Author Jeana Martini [facility] August 22, 2022 9:54amNote Date/TimeMarch 2022 9:55am[place] [address] Hospitalist Progress Note Signed Patient: Addie Jean Baptiste MR#: [id number] : 1975 Acct:[id number] Age/Sex: 47 / F Adm Date: 3 Loc: Room: [address] [place] [address] Type: ADM IN Attending Dr: Jeana Martini [...] place, time and person, morbidly obese HEENT: [place] conjunctiva and NL buccal mucosa Neck: Supple, [...] Insuln.Pen SUBCUT 08/20/23 11:59 Not Given TID.WM.HS [facility] Protocol Levetiracetam 750 mg [...] <Electronically signed by Jeana Martini MD> 08/22/22953 [facility] Work Phone: Progress note Author Shameka Romero [facility] August 22, 2022 9:56amNote Date/TimeMarch 2022 9:56[place] [address] Vascular Surgery Progress Note Signed Patient: Addie Jean Baptiste MR#: [id number] : 1975 Acct:[id number] Age/Sex: 47 / F Adm Date: 3 Loc: Room: [address] [place] [address] Type: ADM IN Attending Dr: Jeana Martini [...] foot. We did bring the patient down [facility] and [facility]. She is extremely anxious [...] left toe Status: Acute Documented By: Shameka Roemro MD 08/22/22 0954 Signed By: <Electronically signed by Shameka Romero MD> 08/22/22 0956 [facility] Work Phone: Reason for referral (narrative)* Consultation (Routine) - New RequestSpecialtyDiagnoses / ProceduresReferred By Contact Referred To [facility] Sports Diagnoses Pain of left lower leg Tonia Ridley APRN-CNP [address] [place] [id number] Referral IDStatusMikaelaSalisbury DateExpiration DateVisits RequestedVisits [id number] [facility]/ [facility]Reason for referral (narrative)No reason for referral information availableMer[facility] Work Phone: Reason for visit Narrativewondering about R/S for procedureNorman Spacedeck Other Reason for visit Narrative* Auth/CertSpecialty Diagnoses / ProceduresReferred By ContactReferred To Contact Diagnoses Sudden vision loss Vanessa Vargas MD [address] [place] [address] Phone: tel: fax: Referral IDStatusReasonSalisbury DateExpiration DateVisits RequestedVisits [id number] [facility] Assessments DiagnosisAcute [...] and Living Will07/08/2023 8:24 PMDate ActivatedDate Inactivated Pjqtiffu82/17/2023 4:09 PM05/13/2023 6:15 PMDate ActivatedDate Inactivated Hadgxmgl53/8/2023 3:47 PM04/26/2023 5:18 PMCode Status reflects patient's informed choice.Date ActivatedDate SmdttvltcgmRjzlteig27/5/2023 1:43 PM03/30/2023 5:31 PMDate ActivatedDate InactivatedComments02/18/2023 12:28 AM02/20/2023 4:55 PM Date ActivatedDate InactivatedComments01/12/2023 8:16 PM01/14/2023 12:34 PMCode StatusDate ActivatedDate InactivatedCommentsFull Code03/30/2017 9:46 AM04/01/2017 3:40 PMDate ActivatedDate FqadxpumqfhSmenyxto50/17/2023 4:09 PM05/13/2023 6:15 PMDate ActivatedDate YnujjlvdlkoXzhvrnii48/8/2023 3:47 PM04/26/2023 5:18 PMCode Status reflects patient's informed choice.Date ActivatedDate InactivatedComments 03/29/2023 1:43 PM03/30/2023 5:31 PMDate ActivatedDate InactivatedComments 02/18/2023 12:28 AM02/20/2023 4:55 PMDate ActivatedDate InactivatedComments 01/12/2023 8:16 PM01/14/2023 12:34 PMDate ActivatedDate InactivatedComments 03/30/2017 9:46 AM04/01/2017 3:40 PMTypeDate 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 ExplanationAdvance Directives and Living Will11/09/2023 8:44 PMTypeDate Recorded Patient RepresentativeExplanationAdvance Directives and Living Will11/09/2023 8:44 PMDate ActivatedDate InactivatedComments01/12/2024 5:17 PMDate ActivatedDate HtphiouoaobNsxuskhu68/17/2023 4:09 PM05/13/2023 6:15 PMDate ActivatedDate FzalcvpqrlwEwqnsowq76/8/2023 3:47 PM04/26/2023 5:18 PMCode Status reflects patient's informed choice.Date ActivatedDate UeydnbcedkjIjqkfxym40/5/2023 1:43 PM03/30/2023 5:31 PMDate ActivatedDate InactivatedComments02/18/2023 12:28 AM 02/20/2023 4:55 PMDate ActivatedDate InactivatedComments01/12/2024 5:17 PM 01/18/2024 4:48 PMDate ActivatedDate CpulwxnobyfGeaqrdbv30/17/2023 4:09 PM 05/13/2023 6:15 PMDate ActivatedDate UndurgbgyyiUmjhtawn89/8/2023 3:47 PM 04/26/2023 5:18 PMCode Status reflects patient's informed choice.Date Activated Date RivudjunpzkPxiupxid35/5/2023 1:43 PM03/30/2023 5:31 PMDate ActivatedDate InactivatedComments02/18/2023 12:28 AM02/20/2023 4:55 PMDate ActivatedDate InactivatedComments01/12/2024 5:17 PM01/18/2024 4:48 PMDate ActivatedDate SivhizeiursDqkguqad89/1/2024 12:34 AMDate ActivatedDate InactivatedComments 01/12/2024 5:17 PM01/18/2024 4:48 PMDate ActivatedDate InactivatedComments 05/10/2023 4:09 PM05/13/2023 6:15 PMDate ActivatedDate InactivatedComments 04/01/2023 3:47 PM04/26/2023 5:18 PMCode Status reflects patient's informed choice.Date ActivatedDate LvsvuaardcfOvdfzkxd99/5/2023 1:43 PM03/30/2023 5:31 PM Date ActivatedDate ZkcumqlwyzkTzhoqcfg05/1/2024 12:34 AM04/04/2024 7:43 PMDate ActivatedDate OpwaiehxvxrYazjjuam64/4/2024 1:09 AMDate ActivatedDate Inactivated Comgehxw57/3/2024 11:46 PM04/27/2024 1:09 AMDate ActivatedDate Inactivated Ddshxwth68/1/2024 12:34 AM04/04/2024 7:43 PMDate ActivatedDate Inactivated Comments01/12/2024 [...] ActivatedDate InactivatedComments12/03/2024 7:40 AM12/05/2024 7:18 PMDate ActivatedDate WluobylkiddRvzfcuui81/13/2022 2:06 AM03/11/2022 9:21 PMDate ActivatedDate InactivatedComments12/03/2024 7:40 AM12/05/2024 7:18 PMDate ActivatedDate DwpccjjqndeWhmtgcbr60/13/2022 2:06 AM03/11/2022 9:21 PM Advance Directive Response Recorded Date/ Time Advance Directives No February 23, 2017 1:30pm Hospital Course Note Send Summary: Discharge Summ margoth Providers: Provider RoleProvider Name Rosalia Mendez Samuel E AttendingQuan, Kara Note Recipients: Rosalia Noble MD - [id number] [preferred] Italo Headley MD - [id number] [] Discharge: Summary: Admission Date: .06-Apr-2019 06:38:00 Discharge Date: 07-Apr-2019 Attending Physician at Discharge: Rosalia Noble Admission Reason: sustained ventricular tachycardia Final Discharge Diagnoses: sustained ventricular tachycardia dual chamber ICD Procedures: electrophysiology studies and dual chamber PPM upgrade to dual chamber ICD Condition at Discharge: Satisfactory Disposition at Discharge: .Home Vital Signs: T PRBPSpO2 [id number]/8395% Date/Time04/07 8: 8: 8: 8: 8:00 Range(36.2C [...] Log into your personal health record on [email or web address] and enter A739 in the Education box to learn more about Diabetes Foot Health: Care Instructions. Current as of: January 23, 2020 Content Version: 12.7 [employer]. Care instructions adapted under license by your healthcare professional. If you have questions about a medical condition or this instruction, always ask your healthcare professional. [employer] disclaims any warranty or liability for your [...] so she went to Emergency Department in [place], subsequently [facility] and was admitted for cellulitis [...] pick it up tomorrow at pharmacy - [facility] in [place] . FLUoxetine (PROZAC) 40 MG capsule Take [...] with #316 blade. Nail border removed with applique cutter and hemostats under digital anesthesia. All [...] If there are any questions, please call. [phone]. * Nikko Wasserman, PT - 06/04/2020 4:00 [...] level Prior Level of Function Level of Mission: Independent with ADLs and functional transfers, Independent [...] 10.2-worsened since 06/28/2019. She reports that her prosthetic dentist is Dr Resendez-office number [phone]. Spoke with office staff this am and [...] pt and pt has notbeen seen by prosthetic dentist in almost 1 year. MD did refill [...] n left foot Cellulitis of left foot [id number] Diabetic foot infection Hypertension Hypokalemia Hypomagnesemia Hypophosphatemia Onychocryptosis Peripheral vascular disease Toe infection Toe pain, left Diabetes Nicotine dependence Chief Complaint L foot pain PAD w/left great toe ulcerReason for VisitAbscess of toenail on left foot Cellulitis of left foot [id number] Diabetic foot infection Hypertension Hypokalemia Hypomagnesemia Hypophosphatemia [...] unspecified headache type Stephany Pelayo PA-C [address] [address] Virgen Campos MD [address] [address] Referral IDStatusReasonStart DateExpiration DateVisits RequestedVisits [id number] / Procedures Referred By ContactReferred To Contact Diagnoses Chronic obstructive pulmonary disease, unspecified COPD type ([facility]) Stephany Pelayo PA-C [address] [address] [address] Referral IDStatusReasonStart DateExpiration DateVisits RequestedVisits [id number]ak / ProceduresReferred By Contact Referred To ContactRehabilitation Diagnoses Chronic pain syndrome DDD (degenerative disc disease), lumbar Lumbar radiculopathy Jim Velez DO [address] [place] [address] Referral IDStatusReasonStart DateExpiration DateVisits RequestedVisits [id number]/16/20247/056720BxyijxtzmDqikebcmm / Procedures Referred By ContactReferred To Contact Diagnoses Type 2 diabetes mellitus with diabetic polyneuropathy, with long-term current use of insulin (HCC) Sahara Sanchez MD [address] [place] [address] Referral IDStatusReasonStart DateExpiration DateVisits RequestedVisits [id number] Vnfpcn52YyyojytvuRjwkqiwge / ProceduresReferred By ContactReferred To Contact Diagnoses Lacunar stroke (HCC) Procedures Thrombotic Risk Screen Virgen Campos MD [address] [address] Referral IDStatusReasonStart DateExpiration DateVisits RequestedVisits [id number] Review/325972SdvqavbydMndfrcotm / ProceduresReferred By ContactReferred To ContactOtolaryngology Diagnoses Hearing loss of left ear, unspecified hearing loss type Virgen Campos MD [address] [address] [address] [address] Referral IDStatusReasonSalisbury DateExpiration DateVisits RequestedVisits [id number] Specialty Services Required/Patient's Best Interest /[id number] / ProceduresReferred By ContactReferred To ContactNeurology Diagnoses Seizure (HCC) Procedures EEG (Standard) Virgen Campos MD [address] [address] Referral IDStatusReasonSalisbury DateExpiration DateVisits RequestedVisits [id number] Review/[id number] / ProceduresReferred By ContactReferred To ContactPulmonary Disease Diagnoses Subacute cough Family history of pulmonary fibrosis Stephany Pelayo PA-C [address] [place] [address] Neida Dominguez MD [address] [place] [address] Referral IDStatusReasonStart DateExpiration DateVisits RequestedVisits [id number] Patient Preference /[id number] / ProceduresReferred By ContactReferred To ContactRadiology Diagnoses RUQ abdominal pain Procedures US Abdomen Complete Stephany Pelayo PA-C [facility] [address] [address] Referral IDStatusReasonStart DateExpiration DateVisits RequestedVisits [id number]/21/20245/939730EbvfxolhwQznyesnoa / Procedures Referred By ContactReferred To ContactPulmonology Diagnoses Subacute cough Family history of pulmonary fibrosis Stephany Pelayo PA-C [address] [place] [address] Merrick Almanza MD [address] [place] [address] Referral IDStatusReasonStart DateExpiration DateVisits RequestedVisits [id number]/21/20245/985032OnyputqzgXyerjykcl / Procedures Referred By ContactReferred To ContactUrology Diagnoses Incontinence in female AwastyHarris MD [address] [address] [facility] [place] [address] [place] [address] Referral IDStatusReasonStart DateExpiration DateVisits RequestedVisits [id number]/29/20241/607197QiwxxcxxcOuzbphmtg / Procedures Referred By ContactReferred To [facility] Services Diagnoses Diabetic ulcer of right foot associated with type 2 diabetes mellitus, unspecified part of foot, unspecified ulcer stage (HCC) Left-sided weakness Visual loss, left eye Stephany Pelayo PA-C [address] [place] [address] Referral IDStatusReasonStart DateExpiration DateVisits RequestedVisits [id number] Review Patient Preference /[id number] / ProceduresReferred By ContactReferred To [facility] Diagnoses Generalized weakness Diabetic ulcer of right foot associated with type 2 diabetes mellitus, unspecified part of foot, unspecified ulcer stage (HCC) Muscle spasms of both lower extremities Stephany Pelayo PA-C [address] [place] [address] Referral IDStatusReasonStart DateExpiration DateVisits RequestedVisits [id number] Review Specialty Services Required/Patient's Best Interest /[id number] / ProceduresReferred By ContactReferred To ContactObstetrics/Gynecology Diagnoses Screening for cervical cancer Stephany Pelayo PA-C [address] [place] [address] Timothy Banegas MD [address] [place] [address] Referral IDStatusReasonStconehatta DateExpiration DateVisits RequestedVisits [id number] Patient Preference /[id number] / ProceduresReferred By ContactReferred To ContactOphthalmology Diagnoses Type 2 diabetes mellitus with diabetic polyneuropathy, with long-term current use of insulin (HCC) Stephany Pelayo PA-C [address] [place] [address] [address] Referral IDStatusReasonStart DateExpiration DateVisits RequestedVisits [id number]/13/202312/904798LnhiuxvwfXmalzclze / ProceduresReferred By ContactReferred To ContactRadiology Diagnoses Encounter for screening mammogram for malignant neoplasm of breast Procedures Mammography Screening [place] Bilateral Stephany Pelayo PA-C [address] [address] [facility] [address] [place] [address] Referral IDStatusReasonStart DateExpiration DateVisits RequestedVisits [id number]/13/202312/099273CdkjgnsbkEvwgvfixk / ProceduresReferred By ContactReferred To ContactCardiology Diagnoses S/P placement of cardiac pacemaker Chronic chest pain Stephany Pelayo PA-C [address] [address] [facility] [address] [place] [address] Referral IDStatusReasonStart DateExpiration DateVisits RequestedVisits [id number]/13/202312/617271CsbbuaggdZhlrlphar / ProceduresReferred By ContactReferred To ContactEndocrinology Diagnoses Type 2 diabetes mellitus with diabetic polyneuropathy, with long-term current use of insulin (HCC) Diabetic peripheral neuropathy (HCC) Stephany Pelayo PA-C [address] [address] [facility] [address] [place] [address] Referral IDStatusReasonStart DateExpiration DateVisits RequestedVisits [id number]/13/407182CdtjutrfkGokljziwf / ProceduresReferred By ContactReferred To Contact Stephany Pelayo PA-C [address] [facility] 2 [place] [address] Referral IDStatusReasonStart DateExpiration DateVisits RequestedVisits [id number]ss / ProceduresReferred By Contact Referred To ContactPsychiatry Diagnoses Bipolar 1 disorder (HCC) Insomnia, unspecified type Stephany Pelayo PA-C [address] [facility] 2 [place] [address] [facility] [address] [facility] 3 [place] [address] Referral IDStatusReasonStart DateExpiration DateVisits RequestedVisits [id number]/13/202312/12/135805HmkgkfrldBwgcykoeh / ProceduresReferred By ContactReferred To [facility] Diagnoses Chest pain, moderate coronary artery [...] type Cellulitis of chin Harshad Rizzo MD [address] [place], [place] [address] Referral IDStatusReasonStconehatta DateExpiration DateVisits RequestedVisits [id number] Patient Preference [id number] / ProceduresReferred By ContactReferred To ContactBay[facility] Management Diagnoses Chest pain, moderate coronary artery risk Diabetic peripheral neuropathy (HCC) Seizure disorder (HCC) Morbid obesity (HCC) Harshad Rizzo MD [address] [phone] [facility]ordinat [address] [place] [address] Referral IDStatusMikaelaStconehatta DateExpiration DateVisits RequestedVisits [id number]/6/202311/910461NdzbpbvkrEgcifjsyy / Procedures Referred By ContactReferred To ContactEndocrinology Diagnoses Type 2 diabetes mellitus with other specified complication, unspecified whether intermediate card tender insulin use (HCC) Harshad Rizzo MD [address] [place] [address] Sahara Sanchez MD [address] [place] [address] Referral IDStatusReasonStart DateExpiration DateVisits RequestedVisits [id number] Review Specialty Services Required/Patient's Best Interest / Additional Source Comments ED Notes - Rita Bland RN - 06/26/2017 9:39 PM ESTED Provider Notes - Michi San DO - 06/26/2017 8:07 PM EST Miscellaneous Notes (unrecog nized section and content) Radiology called to ask about the status on pt's xray results. Radiology said they would call [facility]. Formatting of this note may be different from the original. ED PROVIDER NOTE [facility] EMERGENCY DEPARTMENT NAME: Addie Organ AGE: 42 y.o. : 1975 VISIT DATE: 06/26/2017 CSN: [id number] PCP: Cem Mario DO Clinical Impression: SNOMED CT(R) 1. Acute exacerbation of chronic low back pain CHRONIC LOW BACK PAIN Follow-up Information 1. Cem Mario DO. Specialty: Family Medicine [address] [place] [address] Contact information for after-discharge care Follow-up information [...] reports that she was eating dinner at [place] [employer] and when she was leaving she lifted [...] (Standard) Final Result No acute bony abnormalities. [facility]/[place] Workstation ID: [id number] XR Lumbar Spine 2-3 Views (Standard) (Results Pending) Procedures . New Prescriptions CYCLOBENZAPRINE (FLEXERIL) 10 MG TABLET Take 1 (one) tablet (10 mg total) by mouth 3 (three) times a day as needed for muscle spasms. Michi San DO, FACEP Attending Physician [facility] Emergency Department Michi San DO 06/26/17 9618 * ED Notes - Rita Bland RN [...] PM EST Pt states she was at [employer] eating and then upon leaving went to [...] This RN was notified by pharmacist that [facility] does not carry vraylar and could [...] section and content) DATE CREATED AUTHOR 11/12/2017 [facility] DATE CREATED AUTHOR AUTHOR'S ORGANIZ ATION 11/13/2017 [facility] DATE CREATED AUTHOR AUTHOR'S ORGANIZ ATION 07/13/2018 [facility] DATE CREATED AUTHOR AUTHOR'S ORGANIZ ATION 04/12/2019 [facility] DATE CREATED AUTHOR AUTHOR'S ORGANIZ ATION 08/22/2019 [facility] DATE CREATED AUTHOR AUTHOR'S ORGANIZ ATION 12/12/2021 [facility] DATE CREATED AUTHOR AUTHOR'S ORGANIZ ATION 10/08/2022 [facility] DATE CREATED AUTHOR AUTHOR'S ORGANIZ ATION 11/05/[address] [facility] DATE CREATED AUTHOR AUTHOR'S ORGANIZ ATION 02/26/2023 [facility] DATE CREATED AUTHOR AUTHOR'S ORGANIZ ATION 04/01/2023 [facility] DATE CREATED AUTHOR AUTHOR'S ORGANIZ ATION 05/22/2023 [facility] DATE CREATED AUTHOR AUTHOR'S ORGANIZ ATION 03/26/2024 [facility] DATE CREATED AUTHOR AUTHOR'S ORGANIZ ATION 08/05/2024 [facility] DATE CREATED AUTHOR AUTHOR'S ORGANIZ ATION 09/04/2024 [facility] DATE CREATED AUTHOR AUTHOR'S ORGANIZ ATION 10/21/2024 [facility] DATE CREATED AUTHOR AUTHOR'S ORGANIZ ATION 11/13/2024 [facility] DATE CREATED AUTHOR AUTHOR'S ORGANIZ ATION 11/19/2024 [facility] DATE CREATED AUTHOR AUTHOR'S ORGANIZ ATION 12/07/2024 [facility] DATE CREATED AUTHOR AUTHOR'S ORGANIZ ATION 12/11/2024 [facility] DATE CREATED AUTHOR AUTHOR'S ORGANIZ ATION 12/31/2024 [facility] DATE CREATED AUTHOR AUTHOR'S ORGANIZ ATION 01/11/2025 [facility] DATE CREATED AUTHOR AUTHOR'S ORGANIZ ATION 01/17/2025 [facility] DATE CREATED AUTHOR AUTHOR'S ORGANIZ ATION 02/04/2025 [facility] DATE CREATED AUTHOR AUTHOR'S ORGANIZ ATION 02/05/2025 [facility] DATE CREATED AUTHOR AUTHOR'S ORGANIZ ATION 02/27/2025 [facility] DATE CREATED AUTHOR AUTHOR'S ORGANIZ ATION 02/28/2025 [facility] DATE CREATED AUTHOR AUTHOR'S ORGANIZ ATION 03/15/2025 [facility] Reason for Visit (unrecogniz ed section and content) ReasonCommentsWeaknessSpecialtyDiagnoses / ProceduresReferred By ContactReferred To Contact Referral IDStatReasonStconehatta DateExpiration DateVisits RequestedVisits [id number]gwblRzsuskrzDcegq InfectionStatus ReasonSpecialtyDiagnoses / ProceduresReferred By ContactReferred To Contact Diagnoses Diabetic foot infection (HCC) Type 2 diabetes mellitus with left diabetic foot infection (HCC) Diabetic infection of left foot (HCC) ReasonCommentsSeizuresPatient reports that she had seizure relief captain at another ER, 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ReasonCommentsChart [facility] MRIReasonCommentsPainNEW PATIENTRT KNEE PAIN, fell 01/19/23 [facility] ERReasonCommentsChest PainSpecialtyDiagnoses / ProceduresReferred By ContactReferred To Contact Diagnoses Flank pain Chest pain, unspecified type Referral IDStatReasonStart DateExpiration DateVisits RequestedVisits [id number] PainSpecialtyDiagnoses / Procedures Referred By ContactReferred To Contact Diagnoses Chest pain Chest pain, moderate coronary artery risk Referral IDStatReasonStart DateExpiration DateVisits RequestedVisits [id number] / ProceduresReferred By ContactReferred To Contact ReasonCommentsEstablish CareGap Closure (Health Maintenance)Flu, pneumonia, diabetic eyeReasonOnset DateCommentsCare Management Owfffwho91/21/2023Financial ResourcesReasonOnset DateCommentsTransition Of Care05/15/2023ReasonOnset Date Commentshosp bed05/15/2023ReasonCommentsTransition Of CareReasonOnset Date CommentsMedication Opvujb784ReasonCommentsAcute VisitSpecialtyDiagnoses / ProceduresReferred By ContactReferred To ContactPsychiatry Diagnoses Bipolar 1 disorder (HCC) Insomnia, unspecified type Stephany Pelayo PA-C [address] [facility] [address] [place] [address] [facility] 9[address] [facility] [address] [place] [address] Referral IDStatusReasonStart DateExpiration DateVisits RequestedVisits [id number]/13/202312/12/022102LueabdIzfpn DateCommentsMedication Rfeztw504ReasonCommentsFallLeg PainReasonOnset DateCommentsMedication Uilrsr984ReasonCommentsFollow-upReasonOnset OpwyQjgptzuyQAV07/18/2024 ReasonOnset DateCommentsMedication Lqzegw524ReasonCommentsFollow-up Bipolar 1/ anxiety/ PTSD/ insomnia- Patient compliant [...] laterality, unspecified retinopathy severity Jessica Puentes MD [address] [place] [address] [facility] [address] [place] [address] Referral IDStatusReasonStart DateExpiration DateVisits RequestedVisits [id number] Request/386804PbojwgJhvaj DateComments Medication Ckpimp034ReasonCommentsEstablish CareseizuresSpecialty Diagnoses / ProceduresReferred By ContactReferred To ContactNeurology Diagnoses Seizures (HCC) Fab Head MD [address] [place] [address] Virgen Campos MD [address] [place] [address] Referral IDStatusReasonStart DateExpiration DateVisits RequestedVisits [id number] Review/003618HxagpzSyods DateComments Medication Jmyklm264ReasonCommentsMed Change RequestReasonComments Diabetes MellitusGap Closure (Health Maintenance)There are no preventive care reminders to display for this patient.SpecialtyDiagnoses / ProceduresReferred By ContactReferred To ContactEndocrinology Diagnoses Type 2 diabetes mellitus with diabetic polyneuropathy, with long-term current use of insulin (HCC) Diabetic peripheral neuropathy (HCC) Stephany Pelayo PA-C [address] [place] [address] [facility] [address] [place] [address] Referral IDStatusReasonStart DateExpiration DateVisits RequestedVisits [id number]/13/202312/841476ReoeqzKdeid DateCommentsMedication Irpvit574ReasonCommentsPainVAS= 9/10DAX CONSENTYESBack PainThoracic to lumbar painSpecialtyDiagnoses / ProceduresReferred By ContactReferred To Contact Pain Medicine Diagnoses Chronic pain syndrome Muscle spasms of both lower extremities Stephany Pelayo PA-C [facility] S [facility] 2 [place] [address] [facility] Pain [address] [place] [address] Referral IDStatusReasonStart DateExpiration DateVisits RequestedVisits [id number]/11/20244/714819NoohfySzkxi DateCommentsMedication Vljcjq254ReasonCommentsAcute VisitCough, sore throat x 1 weekReasonOnset DateCommentsnebulizer sgxaowuq58/22/2024ReasonOnset DateCommentsMedication Bxjhxn944ReasonOnset DateCommentsMedication Ppixpg184Reason CommentsToe InjuryWound CheckSpecialtyDiagnoses / ProceduresReferred By Contact Referred To Contact Diagnoses Diabetic ulcer of left great toe (HCC) Diabetic ulcer of toe of left foot associated with type 2 diabetes mellitus, limited to breakdown of skin (HCC) Referral IDStatusReasonStart DateExpiration DateVisits RequestedVisits [id number] DateCommentsCare Management Okjfzjzy04/04/2024 Food Insecurity, Housing ResourcesReasonCommentsFollow-upHosp follow up-left big toeReasonOnset DateCommentsMedication Hudzrd534ReasonOnset DateComments Medication Hkdhwo914ReasonCommentsToe PainLeft great toe infection since Thursday-pain, drainageReasonCommentsFollow-upPainVAS = 9ack PainLumbar pain ReasonCommentsFollow-upCheck b12 level, supplies for toeHeartburn worse-can we increase med doseReasonOnset DateCommentsMedication Sdlvvf154Reason CommentsFollow-up4 week f/uAbdominal CrampingFor a couple of weeks, diarrhea for 1 weekReasonOnset DateCommentsMedication Mkhnvf514ReasonOnset Date CommentsGentry Sihwzr634ReasonCommentsToe PainSpecialtyDiagnoses / ProceduresReferred By ContactReferred To Contact Diagnoses Elevated troponin SIRS (systemic inflammatory response syndrome) (HCC) Toe osteomyelitis (HCC) Diabetes mellitus due to underlying condition with hyperglycemia, with long-term current use of insulin (HCC) Osteomyelitis of great toe (HCC) Referral IDStatusReasonSalisbury DateExpiration DateVisits RequestedVisits [id number] DateCommentsMedication Gtuimc114Reason Onset DateCommentsMedication Zrsdze774ReasonCommentsPost-op ProblemToe PainSpecialtyDiagnoses / ProceduresReferred By ContactReferred To Contact Diagnoses Diabetic foot infection (HCC) Postoperative infection, unspecified type, initial encounter Referral IDStatusReasonart DateExpiration DateVisits RequestedVisits [id number] 8/Follow-upFoot PainReasonOnset Date CommentsMedication Lqpnzf3405/27/2024ReasonOnset DateCommentsincontinence supplies 06/06/2024ReasonOnset DateCommentsMedication Tjovwo0906/10/2024ReasonCommentsFoot UlcerLT foot ulcersReasonCommentsAcute RuxemT7Y for shower chairReasonOnset Date Commentsshower chair07/21/2024ReasonOnset DateCommentsMedication Refill 07/12/2024ReasonOnset DateCommentsPulse ox08/04/2024ReasonCommentsFollow-upWould like miralax and zinc oxide creamReasonOnset DateCommentsMedication Refill 08/18/2024ReasonCommentsPainFollow-upLeg PainFoot PainVas 10/10ReasonOnset Date StzihdhqGrizk82/08/2025ReasonOnset DateCommentsMedication Msmnsd5809/22/2024Reason Onset DateCommentsMedication Qrcxoc9510/06/2024ReasonCommentsNo ShowSpecialty Diagnoses / ProceduresReferred By ContactReferred To ContactEndocrinology, Diabetes & Metabolism Diagnoses Type 2 diabetes mellitus with diabetic polyneuropathy, with long-term current use of insulin Stephany Pelayo PA-C Phone: tel: fax: [facility] [address] [place] [address] Referral IDStatusReasonStart DateExpiration DateVisits RequestedVisits [id number] Review/464227WkyywoEurwr DateComments Medication Hoakhp2511/21/2024ReasonOnset DateCommentsMedication Kvximg8612/19/2024 ReasonCommentsDiabetes3 YEARSReasonCommentsPainFollow-upBack PainVas 02/01Reason Onset DateCommentsPower scooter DME02/24/2025ReasonCommentsBack PainKnee Pain SpecialtyDiagnoses / ProceduresReferred By ContactReferred To Contact Neurosurgery Diagnoses Lumbar stenosis with neurogenic claudication Mihai Elizalde, CLINICAL DOCUMENTATION SPECIALIST [address] [place] [address] Phone: tel: fax: Raul Kumar MD [address] [address] Phone: tel: fax: Referral IDStatusReasonStart DateExpiration DateVisits RequestedVisits [id number]/2/202510/2/793995XdgrixMceja DateCommentsPrior Wgzdmnxyiltfx47/21/2025ReasonOnset DateCommentsMedication Cfczes0403/21/2025 Bridger Garner MD - 06/04/2020 1:07 PM EST H&P Notes (unrecognized sect ion and content) HISTORY AND PHYSICAL Patient Name: Addie Jean Baptiste Admit Date: [id number] MR #: [id number] : 1975 Physicians: Provider Not in System [...] PT/OT Hibiclens Lactate elevated, will monitor Seizures ([facility]) Assessment & Plan Continue home keppra, depakote Bipolar 1 disorder ([facility]) Assessment & Plan No evidence of denys at this time Continue home seroquel, lee ann ulrichlar Hypertension Assessment & Plan Continue home lopressor Diabetes mellitus type II, uncontrolled ([facility]) Assessment & Plan A1c 10.2% On [...] resistant Staphylococcus aureus) Pacemaker Seizures (HCC) Stroke ([facility]) Past Surgical History: Procedure Laterality Date [...] at pharmacy - uses [facility] [place] . FLUoxetine (PROZAC) 40 MG capsule Take [...] Associated Order(s): Critical Care ED PROVIDER NOTE [facility] EMERGENCY [facility]PART[facility] NAME: Addie Jean Baptiste AGE: 45 y.o. : 1975 VISIT DATE: 06/03/2020 CSN: [id number] PCP: Provider Not in System Chief Complaint Patient presents with Wound Infection For the past week her left first toe has been inflamed. Two days ago she became aware of some serous drainage from her toe. On 06/02/[address] [facility], and was started on Keflex atthat [...] any injuries to toe. Ptverbalizes [facility] and they [facility] nothing for me . Pt did acknowledge shegot antibiotics. Pt in nad * Kj Torres RN - 06/03/2020 2:29 PM EST Called [facility] [phone] to see if they could fax me records from yesterdays ER visit,talked to Emma states she will fax the records documented in this encounter Care Team (unrecognized sect ion and content) Team Status: Active Member Role Status Dates Laurent Franco GENERATION MANAGER-C Primary Care Provider Active Team Status: Inactive Member Role Status Dates [facility] Cassandra Franco NP-C Primary Care Provider Active Diogenes Torres ProviderActiveEzekiel Mathew , DOAdmit ProviderActiveRalouise Martini MDAttwilman ProviderActiveLawrence Kim MDOther ProviderActiveNicJAS BeeMOdeuce ProviderActiveShameka Romero MDOther ProviderActiveTeam MemberRelationshipSpecialtyStart DateEnd Date Cem Mario DO [address] [place] [address] PCP - GeneralFamily Medicine05/28/15 Team Status: Active Member Role Status Dates [facility] Cassandra Franco NP-C Primary Care Provider Active Jacob A Keister , DOEmergency ProviderActiveKrfrankie Mathew , DOAdmit Provider, Attending ProviderActive Team Status: Inactive Member Role Status Dates Tobyp Cassandra Franco , GENERATION MANAGER-C Primary Care Provider Active Jacob Farfan , DOEmergency ProviderActiveKristanand Mathew , DOAdmit ProviderActiveLawrence Kim MDOther ProviderActiveNiclino Castillo DPMOther ProviderActiveShameka Romero MDOther ProviderActiveJeana Martini MD Attending ProviderActive Team Status: Inactive Member Role Status Dates Tobyp W Salvador , GENERATION MANAGER-C Primary Care Provider Active Shameka Romero MDAttending ProviderActiveTeam MemberRelationship SpecialtyStart DateEnd Date System, Provider Not In PCP - General01/12/23Team MemberRelationshipSpecialtyStart DateEnd Date System, Provider Not In PCP - General01/12/23Team MemberRelationshipSpecialtyStart DateEnd Date System, Provider Not In PCP - General01/12/23Team MemberRelationshipSpecialtyStart DateEnd Date System, Provider Not In PCP - General01/12/2311 Enrique Hebert DO [address] [place] [address] PCP - GeneralPrimary Care03/30/23Team MemberRelationshipSpecialtyStart DateEnd Date Enrique Hebert DO [address] [place] [address] PCP - GeneralPrimary Care03/30/23Team MemberRelationshipSpecialtyStart DateEnd Date Enrique Hebert DO [address] [place] [address] PCP - GeneralPrimary Care03/30/23Team MemberRelationshipSpecialtyStart DateEnd Date Enrique Hebert DO [address] [place] [address] PCP - GeneralPrimary Care11/6/23Team MemberRelationshipSpecialtyStart DateEnd Date Enrique pisano DO [address] [place] [address] PCP - GeneralPrimary Care11/6/23Team MemberRelationshipSpecialtyStart DateEnd Date [facility] [address] [place] [address] PCP - GeneralPrimary Care11/6/23Team MemberRelationshipSpecialtyStart DateEnd Date [facility] [address] [place] [address] PCP - GeneralPrimary Care11/6/23Team MemberRelationshipSpecialtyStart DateEnd Date [facility] [address] [place] [address] PCP - GeneralPrimary Care11/6/23Team MemberRelationshipSpecialtyStart DateEnd Date [facility] [address] [place] [address] PCP - GeneralPrimary Care11/6/23Team MemberRelationshipSpecialtyStart DateEnd Date [facility] [address] [place] [address] PCP - GeneralPrimary Care11/6/23Team MemberRelationshipSpecialtyStart DateEnd Date [facility] [address] [place] [address] PCP - GeneralPrimary Care11/6/23Team MemberRelationshipSpecialtyStart DateEnd Date Enrique pisano DO [address] [place] [address] PCP - GeneralPrimary Care11/6/23Team MemberRelationshipSpecialtyStart DateEnd Date [facility] [address] [place] [address] PCP - GeneralPrimary Care11/6/23Team MemberRelationshipSpecialtyStart DateEnd Date Enrique pisano DO [address] [place] [address] PCP - GeneralPrimary Care11/6/23Team MemberRelationshipSpecialtyStart DateEnd Date Enrique pisanoDO [address] [place] [address] PCP - GeneralPrimary Care11/6/23Team MemberRelationshipSpecialtyStart DateEnd Date [facility] [address] [place] [address] PCP - GeneralPrimary Care11/6/23Team MemberRelationshipSpecialtyStart DateEnd Date aliyaMunaEnriqueDO [address] [place] [address] PCP - GeneralPrimary Care11/6/23Team MemberRelationshipSpecialtyStart DateEnd Date [facility] [address] [place] [address] PCP - GeneralPrimary Care03/30/23Team MemberRelationshipSpecialtyStart DateEnd Date Enrique Hebert DO [address] [place] [address] PCP - GeneralPrimary Care03/30/23Team MemberRelationshipSpecialtyStart DateEnd Date [facility] [address] [place] [address] PCP - GeneralPrimary Care03/30/23Team MemberRelationshipSpecialtyStart DateEnd Date [facility] [address] [place] [address] PCP - GeneralPrimary Care03/30/2312 No, Physician [facility] PCP - Fyqhpye16/7/ Stephany Pelayo PA-C [address] [place] [address] PCP - GeneralInternal Vdxjptnc87/13/23Team MemberRelationshipSpecialtyStart Date End Date Stephany Pelayo PA-C [address] [place] [address] PCP - GeneralInternal Ynfprtvn66/13/23Team MemberRelationshipSpecialtyStart Date End Date Stephany Pelayo PA-C [address] [place] [address] PCP - GeneralInternal Umcmwfaz33/13/23 Josephine Reynoso, RN Case ManagerCase Pdyqbmixuo27/21/23Team MemberRelationshipSpecialtyStart DateEnd Date Stephany Pelayo PA-C [address] [place] [address] PCP - GeneralInternal Qwygzpyx10/13/23 Josephine Reynoso, RN Case ManagerCase Msvkcfavvi31/21/23Team MemberRelationshipSpecialtyStart DateEnd Date Stephany Pelayo PA-C [address] [place] [address] PCP - GeneralInternal Vwecyncx28/13/23 Josephine Reynoso, RN Case ManagerCase Ermkmhjloj68/21/23Team MemberRelationshipSpecialtyStart DateEnd Date Stephany Pelayo PA-C [address] [place] [address] PCP - GeneralInternal Wbccquzr58/13/23 Josephine Reynoso, RN Case ManagerCase Uzfkoodpkw86/21/23Team MemberRelationshipSpecialtyStart DateEnd Date Stephany Pelayo PA-C [address] [place] [address] PCP - GeneralInternal Blqihryd65/13/23 Josephine Reynoso, RN Case ManagerCase Klsygdjsci54/21/23Team MemberRelationshipSpecialtyStart DateEnd Date Enrique Hebert DO [address] [place] [address] PCP - GeneralPrimary Care03/30/2312 No, Physician [facility] PCP - Lnszqhd07/7/ Stephany Pelayo PA-C [address] [place] [address] PCP - GeneralInternal Slaphezy55/13/23 Josephine Reynoso, RN Case ManagerCase Zhzobipten03/21/23Team MemberRelationshipSpecialtyStart DateEnd Date Stephany Pelayo PA-C [address] [place] [address] PCP - GeneralInternal Fikexvnh37/13/23 Josephine Reynoso, RN Case ManagerCase Cbrslmfiob24/21/23Team MemberRelationshipSpecialtyStart DateEnd Date Stephany Pelayo PA-C [address] [place] [address] PCP - GeneralInternal Hdoaujyc17/13/23 Josephine Reynoso, RN Case ManagerCase Upolwfukon02/21/23Team MemberRelationshipSpecialtyStart DateEnd Date Stephany Pelayo PA-C [address] [place] [address] PCP - GeneralInternal Syafoahs82/13/23 Josephine Reynoso, RN Case ManagerCase Management07/30/23Team MemberRelationshipSpecialtyStart DateEnd Date Stephany Pelayo PA-C [address] [place] [address] PCP - GeneralInternal Tufbyktr77/13/23Team MemberRelationshipSpecialtyStart Date End Date Lexy Leach MD [address] [place] [phone] PCP - GeneralClinical Cardiac Electrophysiology09/23/16 Cherelle Fierro MD [address] [place] [address], [address] [address] Family Medicine01/30/12 DarronCem, DO [address] [facility] [place] [address] Consulting PhysicianFamily Puruyohq32/27/17Team MemberRelationshipSpecialtyStart DateEnd Date Stephany Pelayo PA-C [address] [place] [address] PCP - GeneralInternal Rdildzxm22/13/23Team MemberRelationshipSpecialtyStart Date End Date Stephany Pelayo PA-C [address] [place] [address] PCP - GeneralInternal Cwgoafrb50/13/23Team MemberRelationshipSpecialtyStart Date End Date Stephany Pelayo PA-C [address] [place] [address] PCP - GeneralInternal Zovptqtg35/13/23Team MemberRelationshipSpecialtyStart Date End Date Stephany Pelayo PA-C [address] [place] [address] PCP - GeneralInternal Paxpxovm16/13/23Team MemberRelationshipSpecialtyStart Date End Date Stephany Pelayo PA-C [address] [place] [address] PCP - GeneralInternal Wthubtul12/13/23 Josephine Reynoso, RN Case ManagerCase [facility]09/21/23Team MemberRelationshipSpecialtyStart DateEnd Date Stephany Pelayo PA-C [address] [place] [address] PCP - GeneralInternal Qoaiompy30/13/23 Josephine Reynoso, JAEL Case ManagerCase ManagementTeam MemberRelationshipSpecialtyStart DateEnd Date Stephany Pelayo PA-C [address] [facility] [address] [place] [address] PCP - GeneralInternal Oelawchv45/13/23Team MemberRelationshipSpecialtyStart Date End Date Stephany Pelayo PA-C [address] [facility] [address] [place] [address] PCP - GeneralInternal Tskpqttm97/13/23Team MemberRelationshipSpecialtyStart Date End Date Stephany Pelayo PA-C [address] [facility] [address] [place] [address] PCP - GeneralInternal Umluaqjg04/13/23Team MemberRelationshipSpecialtyStart Date End Date Stephany Pelayo PA-C [address] [facility] [address] [place] [address] PCP - GeneralInternal Ldrcluem41/13/23Team MemberRelationshipSpecialtyStart Date End Date Stephany Pelayo PA-C [address] [facility] [address] [place] [address] PCP - GeneralInternal Mqdqizbf82/13/23Team MemberRelationshipSpecialtyStart Date End Date Stephany Pelayo PA-C [address] [facility] [address] [place] [address] PCP - GeneralInternal Qeyjqtaf31/13/23Team MemberRelationshipSpecialtyStart Date End Date Stephany Pelayo PA-C [address] [address] PCP - GeneralInternal Iclzabnx61/13/23Team MemberRelationshipSpecialtyStart Date End Date Lexy Leach MD [address] [place] [phone] PCP - GeneralClinical Cardiac Electrophysiology09/23/16 Cherelle Fierro MD [address] [place] [address] Family Medicine01/30/12 Cem Mario DO [address] [place] [address] Consulting PhysicianFamily Fzkwrbrl91/27/17Team MemberRelationshipSpecialtyStart DateEnd Date Stephany Pelayo PA-C [address] [address] PCP - GeneralInternal Nkjlrjjx21/13/23Team MemberRelationshipSpecialtyStart Date End Date Stephany Pelayo PA-C [address] [address] PCP - GeneralInternal Jumppcnt06/13/23Team MemberRelationshipSpecialtyStart Date End Date Stephany Pelayo PA-C [address] [address] PCP - GeneralInternal Uwpsrzen86/13/23Team MemberRelationshipSpecialtyStart Date End Date Stephany Pelayo PA-C [address] [facility] [address] [place] [address] PCP - GeneralInternal Iyzzgymq75/13/23Team MemberRelationshipSpecialtyStart Date End Date Stephany Pelayo PA-C [address] [facility] [address] [place] [address] PCP - GeneralInternal Qpqsxvih36/Team MemberRelationshipSpecialtyStart Date End Date Stephany Pelayo PA-C [address] [facility] [address] [place] [address] PCP - GeneralInternal Yobwlfjo28/13/23Team MemberRelationshipSpecialtyStart Date End Date Stephany Pelayo PA-C [address] [facility] [address] [place] [address] PCP - GeneralInternal Hhwjyyoq51/13/23Team MemberRelationshipSpecialtyStart Date End Date Stephany Pelayo PA-C [address] [facility] [address] [place] [address] PCP - GeneralInternal Tpgpapfs74/13/23Team MemberRelationshipSpecialtyStart Date End Date Stephany Pelayo PA-C [address] [facility] [address] [place] [address] PCP - GeneralInternal Yywqjevo50/13/23Team MemberRelationshipSpecialtyStart Date End Date Stephany Pelayo PA-C [address] [facility] [address] [place] [address] PCP - GeneralInternal Ttbebyir80/23Team MemberRelationshipSpecialtyStart Date End Date Stephany Pelayo PA-C [address] [place] [address] PCP - GeneralInternal Vgeaodjs14/13/23Team MemberRelationshipSpecialtyStart Date End Date Stephany Pelayo PA-C [address] [place] [address] PCP - GeneralInternal Gahquyuo33/13/23Team MemberRelationshipSpecialtyStart Date End Date Stephany Pelayo PA-C [address] [place] [address] PCP - GeneralInternal Lemrryst18/13/23Team MemberRelationshipSpecialtyStart Date End Date Stephany Pelayo PA-C [address] [place] [address] PCP - GeneralInternal Kdckpiyy09/13/23 Swapnil Hooks Community Health WorkerCase Management01/27/24Team MemberRelationshipSpecialty Start DateEnd Date Stephany Pelayo PA-C [address] [place] [address] PCP - GeneralInternal Zumoqlgw29/13/23 Swapnil Hooks Community Health WorkerCase Management01/27/24Team MemberRelationshipSpecialty Start DateEnd Date Stephany Pelayo PA-C [address] [place] [address] PCP - GeneralInternal Druninfd18/13/23 Swapnil Hooks Community Health WorkerCase Management01/27/24Team MemberRelationshipSpecialty Start DateEnd Date Stephany Pelayo PA-C [address] [facility] [address] [place] [address] PCP - GeneralInternal Aabqpymx58/13/23 Swapnil Hooks Community Health WorkerCase Management01/27/24Team MemberRelationshipSpecialty Start DateEnd Date Stephany Pelayo PA-C [address] [facility] [address] [place] [address] PCP - GeneralInternal Idawvwqa51/13/23 Swapnil Hooks [facility] WorkerCase Management01/27/24Team MemberRelationshipSpecialty Start DateEnd Date Stephany Pelayo PA-C [address] [facility] [address] [place] [address] PCP - GeneralInternal Wykizedw27/13/23Team MemberRelationshipSpecialtyStart Date End Date Stephany Pelayo PA-C [address] [facility] [address] [place] [address] PCP - GeneralInternal Hfxfzwwr91/13/23 Swapnil Hooks Community Health WorkerCase Management01/27/24 Radha Davalos, JULI DietitianDietitian/Nutritionist02/04/24Team MemberRelationshipSpecialtyStart Date End Date Stephany Pelayo PA-C [address] [facility] [address] [place] [address] PCP - GeneralInternal Robwvelq10/13/23 Swapnil Hooks [facility] WorkerCase Management01/27/24Team MemberRelationshipSpecialty Start DateEnd Date Stephany Pelayo PA-C [address] [facility] [address] [place] [address] PCP - GeneralInternal Ilghbihm09/13/23 Swapnil Hooks Community Health WorkerCase Management01/27/24 Radha Davalos, JULI DietitianDietitian/Nutritionist02/04/24Team MemberRelationshipSpecialtyStart Date End Date Stephany Pelayo PA-C [address] [facility] [address] [place] [address] PCP - GeneralInternal Wjzuqtpj01/13/23 Swapnil Hooks Community Health WorkerCase Management01/26/2410Team MemberRelationship SpecialtyStart DateEnd Date Stephany Pelayo PA-C [address] [address] PCP - GeneralInternal Cszellqw23/13/23Team MemberRelationshipSpecialtyStart Date End Date Stephany Pelayo PA-C [address] [place] [address] PCP - GeneralInternal Hcbuvfge97/13/23Team MemberRelationshipSpecialtyStart Date End Date Stephany Pelayo PA-C [address] [place] [address] PCP - GeneralInternal Ghqoaivu99/13/23Team MemberRelationshipSpecialtyStart Date End Date Stephany Pelayo PA-C [address] [place] [address] PCP - GeneralInternal Zoibimpq84/13/23Team MemberRelationshipSpecialtyStart Date End Date Stephany Pelayo PA-C [address] [facility] [address] [place] [address] PCP - GeneralInternal Evmbiimi28/13/23Team MemberRelationshipSpecialtyStart Date End Date Stephany Pelayo PA-C [address] [place] [address] PCP - GeneralInternal Aahbsawz03/13/23Team MemberRelationshipSpecialtyStart Date End Date Stephany Pelayo PA-C [address] [facility] [address] [place] [address] PCP - GeneralInternal Mtqiegyy05/13/23Team MemberRelationshipSpecialtyStart Date End Date Stephany Pelayo PA-C [address] [facility] [address] [place] [address] PCP - GeneralInternal Rbhcubts51/13/23Team MemberRelationshipSpecialtyStart Date End Date Stephany Pelayo PA-C [address] [facility] [address] [place] [address] PCP - GeneralInternal Ckzvbzdu86/13/23Team MemberRelationshipSpecialtyStart Date End Date Stephany Pelayo PA-C [address] [facility] [address] [place] [address] PCP - GeneralInternal Eaxeajbc71/13/23Team MemberRelationshipSpecialtyStart Date End Date Stephany Pelayo PA-C [address] [facility] [address] [place] [address] PCP - GeneralInternal Ekokjsrm30/13/23Team MemberRelationshipSpecialtyStart Date End Date Stephany Pelayo PA-C [address] [address] PCP - GeneralInternal Pvnzjpcx33/13/23Team MemberRelationshipSpecialtyStart Date End Date Stephany Pelayo PA-C [address] [address] PCP - GeneralInternal Zjztftpi90/13/23Team MemberRelationshipSpecialtyStart Date End Date Stephany Pelayo PA-C [address] [address] PCP - GeneralInternal Dwqvdhzl69/13/23Team MemberRelationshipSpecialtyStart Date End Date Stephany Pelayo PA-C [address] [address] PCP - GeneralInternal Ydxvyntv09/13/23Team MemberRelationshipSpecialtyStart Date End Date Unallocated, Noms Provider, [address] [place] [address] PCP - GeneralFamily Medicine07/05/24 Jim Velez MD [address] [place] [address] Referring PhysicianPain Medicine07/05/24Team MemberRelationshipSpecialtyStart DateEnd Date Stephany Pelayo PA-C [address] [place] [address] PCP - GeneralInternal Luaqplvb67/13/23Team MemberRelationshipSpecialtyStart Date End Date Stephany Pelayo PA-C [address] [place] [address] PCP - GeneralInternal Nvjpyscj39/13/23Team MemberRelationshipSpecialtyStart Date End Date Stephany Pelayo PA-C [address] [facility] [address] [place] [address] PCP - GeneralInternal Cohixwuz58/13/23Team MemberRelationshipSpecialtyStart Date End Date Stephany Pelayo PA-C [address] [facility] [address] [place] [address] PCP - GeneralInternal Cinjcamu35/13/23Team MemberRelationshipSpecialtyStart Date End Date Stephany Pelayo PA-C [address] [facility] [address] [place] [address] PCP - GeneralInternal Qixsludn58/13/23Team MemberRelationshipSpecialtyStart Date End Date Stephany Pelayo PA-C [address] [facility] [address] [place] [address] PCP - GeneralInternal Uowygwnr43/13/23Team MemberRelationshipSpecialtyStart Date End Date Stephany Pelayo PA-C [address] [facility] [address] [place] [address] PCP - GeneralInternal Qbdwolkj56/13/23Team MemberRelationshipSpecialtyStart Date End Date Stephany Pelayo PA-C [address] [facility] [address] [place] [address] PCP - GeneralInternal Cixzoomc60/13/23Team MemberRelationshipSpecialtyStart Date End Date Stephany Pelayo PA-C [address] [place] [address] [address] [place] [address] PCP - GeneralInternal Binknzml65/13/23Team MemberRelationshipSpecialtyStart Date End Date Stephany Pelayo PA-C [address] [place] [address] PCP - GeneralInternal Yseqjudk39/13/23Team MemberRelationshipSpecialtyStart Date End Date Stephany Pelayo PA-C [facility] [place] [address] PCP - GeneralInternal Hyovnfxn65/13/23Team MemberRelationshipSpecialtyStart Date End Date Stephany Pelayo PA-C [address] [place] [address] PCP - GeneralInternal Dmidlrkq39/13/23Team MemberRelationshipSpecialtyStart Date End Date Lexy Leach MD [address] [place] [address] PCP - GeneralClinical Cardiac Electrophysiology09/23/16 Cherelle Fierro MD [address] [place] [address] Family Medicine01/30/12 Cem Mario W, DO [address] [place] [address] Consulting PhysicianFamily Vfokknhz24/27/17Team MemberRelationshipSpecialtyStart DateEnd Date Stephany Pelayo PA-C [address] [place] [address] PCP - [facility]05/06/Team MemberRelationshipSpecialty Start DateEnd Date Radha Dias DO PCP - [facility] Team Status: Inactive Member Role Status Dates Ben Horn DO Attending Provider Active S tart: December 28, 2024 End: December 28, 2024Team MemberRelationshipSpecialtyStart DateEnd Date Unallocated, Shilas MD [facility] [place] [address] [facility] - [facility]07/05/24 Jim Velez MD [address] [place] [phone] Referring [facility]07/05/24Team MemberRelationshipSpecialtyStart DateEnd Date Unallocated, Shilas MD [facility] [place] [address] [facility] - [facility]07/05/24 Jim Velez MD [address] [place] [address] [facility]/24 Team Status: Active Member Role Status Dates Andrés Lopez DO Primary Care Provider Active Team Status: Inactive Member Role Status Dates Andrés Lopez DO Primary Care Provider Active Start: February 20, 2025 End: February 20, 2025Mitcorin Lopez DOAttending ProviderActiveStart: February 20, 2025 End: February 20, 2025Team MemberRelationshipSpecialtyStart DateEnd Date System, Provider Not In [facility] Wfxpfxm96/2/25Team MemberRelationshipSpecialtyStart DateEnd Date System, Provider Not In [facility] Awonbrr64/2/25Te MemberRelationshipSpecialtyStart DateEnd Date System, Provider Not In [facility]02/23/25Te MemberRelationshipSpecialtyStart DateEnd Date System, Provider Not In [facility]02/23/25Te MemberRelationshipSpecialtyStart DateEnd Date System, Provider Not In [facility]02/23/25Te MemberRelationshipSpecialtyStart DateEnd Date Unallocated, Dominguez Cardona MD [address] [place] [address] PCP [facility]07/05/24 Jim Velez MD [address] [facility] [place] [address] Referring [facility]07/05/24Te MemberRelationshipSpecialtyStart DateEnd Date System, Provider Not In [facility]02/23/25 Team Status: Active Member Role/Relationship Status Dates [...] for up to 14 days. 7 tablet 007/17/254236/ Scheduled Active and Recently Administ ered Medications [...] Bag - Provider: Dannielle Jeong RN) Medication Order09/27/140589// albuterol inhaler 2 puff 2 puff, Inhalation, [...] CRUSH OR CHEW. * [facility]: Monique Grande RN) ondansetron (ZOFRAN) [...] at 2024, Give with Food flu vacc [id number] 6mos up(PF) (FLUZONE QUAD/FLULAVAL QUAD/FLUARIX QUAD) syringe [...] * 0856 (Given - Provider: Ifeoma Waterman, JALE) heparin, porcine (PF) injection 500 Units (COMPLETED) [...] JAEL) * 1757 (Given - Provider: Nicolette Cofefy, JAEL) * 2137 (Given - Provider: Dannielle [...] 0540 (New Bag - Provider: Aleyda Villegas, JEAL) * 1333 (Stopped - Provider: Hayde Boyer [...] * 0836 (Not Given - Provider: Yvette Canchoal RN - Reason: Patient/family refused) nortriptyline (PAMELOR) [...] First dose (after last modification) on Thu04/27/24 [id number], DO NOT CRUSH OR CHEW. * 0804 [...] Plascencia LPN) * 2106 (Given - Provider: Aledya Villegas, JAEL) senna (SENOKOT) tablet 17.2 mg [...] Carrington RN) * 2127 (Given - Provider: Ellne Valera, JAEL) QUEtiapine (SEROquel) tablet 800 mg [...] RN) * 1727 (Stop Bag - Provider: Uzam Mcpherson RN - Comment: [Order ends at this time. Document the following action when infusion is complete: Stop Bag]) sodium chloride 0.9 % with KCl 20 mEq/L infusion () 100 mL/hr, intravenous, Continuous, Starting on 12/03/24 at 0745, For 1 day, For blood glucose greater than 250mg/dL. Once IV fluid is changed to dextrose- containing formulation, DO NOT change to wft-kbfelzsh-goyyyegyqx IV fluid if blood glucose exceeds 250 [...] dextrose- containing formulation, DO NOT change to trj-nmdkmevb-faburqmvcz IV fluid if blood glucose exceeds 250 [...] BE BASED ON THE PRIMARY CLINICAL RECORDS. [employer] [facility]. provides no warranty or guarantee of the accuracy or completeness of information in this document.
[2025-05-23 21:51] LABS: Hematocrit 34.5 % (36.0-48.0); Hemoglobin 11.8 g/dL (12.0-16.0); Immature Granulocytes Abs Auto 0.05 10^3/uL (0.00-0.03); Immature Granulocytes Pct Auto 0.5 % (0.0-0.5); Lymphocytes Absolute Auto 1.7 10^3/uL (1.2-3.8); Mean Corpuscular HGB Conc 34.2 g/dL (29.9-35.2); Mean Corpuscular Hemoglobin 30.6 pg (26.7-34.0); Mean Corpuscular Volume 89.4 fL (81.0-99.0); Platelet Count 315 10^3/uL (150-450); Red Blood Count 3.86 10^6/uL (4.20-5.40); White Blood Count 9.9 10^3/uL (4.0-11.0)
[2025-05-23 22:09] LABS: Alanine Aminotransferase 14 U/L (14-59); Albumin Globulin Ratio 0.8; Albumin Level 3.2 g/dL (3.4-5.0); Alkaline Phosphatase 114 U/L (46-116); Anion Gap 11.5; Aspartate Amino Transferase 9 U/L (15-37); Blood Urea Nitrogen 21.0 mg/dL (7.0-18.0); Calcium 8.5 mg/dL (8.5-10.1); Carbon Dioxide 27.2 mmol/L (21.0-32.0); Chloride 102 mmol/L (98-107); Estimated GFR (African America 50 (>=60 mL/min/1.73m^2); Estimated GFR (Non-African Ame 41 (>=60 mL/min/1.73m^2); Globulin 3.8 g/dL; Glucose 192 mg/dL (74-106); Potassium 3.7 mmol/L (3.5-5.1); Sodium 137 mmol/L (136-145); Total Protein 7.0 g/dL (6.4-8.2)
--- NOTE | 2025-05-23 22:45 | XR_ITS ---
The [address] [address] Patient Name: ADDIE SANDERS MRN: [id number] date: 1975 Sex: F Assigned Patient Location: ER Current Patient Location: ER Accession/Order Number: [id number] Exam Date: 05/23/2025 23:00 Report Date: 05/23/2025 23:29 At the request of: MICHI MENDEZ MD Procedure: XR acute abdomen series XR acute abdomen series 05/23/2025 11:08 PM SIGNS AND SYMPTOMS: ^N/V PROTOCOL: Frontal radiographs of the chest, abdomen, and pelvis COMPARISON: 12/28/2024 FINDINGS: The trachea is midline. There is a right-sided Ljcfel-k-Ifdy. There is a pacer device on the left. The heart and mediastinal structures are within normal limits. The lung parenchyma is clear. The bony thorax is intact. There is evidence of prior cholecystectomy. There is a nonobstructive bowel gas pattern with a moderate amount of stool within the colon. Vascular calcifications are present in the pelvis. XR/XR acute abdomen series IMPRESSION: No acute cardiopulmonary pathology. No bowel obstruction or free air. Impression dictated by: Compa Dobbs M.D. 05/23/2025 11:29 PM Dictation Location: [facility] Electronically authenticated by: [id number] Y Date: 05/23/2025 23:29
[2025-05-23] MEDS: PROMETHAZINE HCL 25 MG/ML VIAL IM (22:46)
== END 2025-05-24 00:16 | disposition home or self-care (01) ==
PROVIDERS: Emergency Provider Emergency Medicine; PCP Student in an Organized Health Care Education/Training Program
DX: R11.2 Nausea with vomiting, unspecified (principal); E11.9 Type 2 diabetes mellitus without complications; Z79.4 Long term (current) use of insulin; F17.200 Nicotine dependence, unspecified, uncomplicated; Z96.41 Presence of insulin pump (external) (internal)
CPT/HCPCS: 36415; 74022; 80053; 82009; 85025; 87804; 96361; 96372; 96374; 99284; 99285; J2550; J3490